=== PATIENT | female | born 1970 | race Caucasian/White ===

== ENCOUNTER 2019-07-04 02:19 | Inpatient (IN) | payer OTHER, SELFPAY ==
[~2019-07-04] VITALS: Ht 172.7 cm; Wt 80.5 kg
--- NOTE | 2019-07-04 02:41 | PHYS DOC ---
Adult General Chief Complaint Chief Complaint: ABDOMINAL PAIN HPI HPI 39-year-old female presents the emergency room complaints of abdominal pain. Patient described off and on x2 days worse tonight. She states is constant, described as a squeezing sensation. She does describe nausea, vomiting. She denies any fever or diarrhea. Patient denies any abdominal surgical procedures. She states is worse with movements, car ride. Pain initially was upper abdomen however now pretty much generalized. Last bowel movement was today. Patient is only past medical history includes hypertension and diabetes. Nothing makes her pain better. Patient denies any shortness of breath. She does state the pain moves into her chest. Denies any headache or visual changes. Review of Systems Review of Systems Constitutional: Denies fever or chills [] Respiratory: Denies cough or shortness of breath [] Cardiovascular: No additional information not addressed in HPI [] GI: + abdominal pain, nausea, vomiting, no bloody stools or diarrhea [] : Denies dysuria or hematuria [] Musculoskeletal: Denies back pain or joint pain [] Integument: psoriasis Neurologic: Denies headache, focal weakness or sensory changes [] All other systems were reviewed and found to be within normal limits, except as documented in this note. Current Medications Current Medications Current Medications Medications (Trade) Dose Ordered Sig/Yvon Start Time Stop Time Status Last Admin Dose Admin Fentanyl Citrate (Fentanyl 2ml Vial) 100 mcg STK-MED ONCE 07/04/19 03:18 07/04/19 03:18 DC Hydromorphone HCl (Dilaudid) 0.5 mg PRN Q3HRS PRN 07/04/19 05:00 Info (CONTRAST GIVEN -- Rx MONITORING) 1 each PRN DAILY PRN 07/04/19 03:30 07/06/19 03:29 Iohexol (Omnipaque 350 Mg/ml) 90 ml 1X ONCE 07/04/19 03:30 07/04/19 03:31 DC 07/04/19 03:25 90 ML Ketorolac Tromethamine (Toradol 30mg Vial) 30 mg 1X ONCE 07/04/19 03:00 07/04/19 03:01 DC 07/04/19 02:54 30 MG Morphine Sulfate (Morphine Sulfate) 2 mg PRN Q2HR PRN 07/04/19 05:00 07/05/19 04:59 Ondansetron HCl (Zofran) 4 mg PRN Q8HRS PRN 07/04/19 05:00 07/05/19 04:59 Sodium Chloride 1,000 ml @ 125 mls/hr Q8H 07/04/19 05:00 07/05/19 04:59 Allergies Allergies Allergies Coded Allergies Type Severity Reaction Last Updated Verified codeine Allergy Intermediate rash 07/04/19 Yes Physical Exam Physical Exam Constitutional: Well developed, well nourished, distress 2/2 pain, diaphoretic. [] HENT: Normocephalic, atraumatic, bilateral external ears normal, oropharynx moist, no oral exudates, nose normal. [] Eyes: PERRLA, EOMI, conjunctiva normal, no discharge. [] Cardiovascular:Heart rate regular rhythm, no murmur [] Lungs & Thorax: Bilateral breath sounds clear to auscultation [] Abdomen: Bowel sounds decreased, soft, TTP throughout, no masses, no pulsatile masses. [] Skin: Warm, dry, no erythema, no rash. [] Back: No tenderness, no CVA tenderness. [] Extremities: No tenderness, no edema. [] Neurologic: Alert and oriented X 3, no focal deficits noted. [] Psychologic: Affect normal, judgement normal, mood normal. [] Current Patient Data Vital Signs Vital Signs Date Time Temp Pulse Resp B/P (MAP) Pulse Ox O2 Delivery O2 Flow Rate FiO2 07/04/19 03:55 16 100 Room Air 07/04/19 02:25 97.6 63 106/57 (73) 97.6 Lab Values Laboratory Tests Test 07/04/19 03:40 White Blood Count 17.7 x10^3/uL (4.0-11.0) H Red Blood Count 4.55 x10^6/uL (3.50-5.40) Hemoglobin 15.2 g/dL (12.0-15.5) Hematocrit 44.3 % (36.0-47.0) Mean Corpuscular Volume 98 fL (79-100) Mean Corpuscular Hemoglobin 33 pg (25-35) Mean Corpuscular Hemoglobin Concent 34 g/dL (31-37) Red Cell Distribution Width 12.9 % (11.5-14.5) Platelet Count 294 x10^3/uL (140-400) Neutrophils (%) (Auto) 89 % (31-73) H Lymphocytes (%) (Auto) 7 % (24-48) L Monocytes (%) (Auto) 4 % (0-9) Eosinophils (%) (Auto) 0 % (0-3) Basophils (%) (Auto) 0 % (0-3) Neutrophils # (Auto) 15.7 x10^3/uL (1.8-7.7) H Lymphocytes # (Auto) 1.3 x10^3/uL (1.0-4.8) Monocytes # (Auto) 0.7 x10^3/uL (0.0-1.1) Eosinophils # (Auto) 0.0 x10^3/uL (0.0-0.7) Basophils # (Auto) 0.0 x10^3/uL (0.0-0.2) Platelet Estimate Pending Sodium Level 138 mmol/L (136-145) Potassium Level 4.3 mmol/L (3.5-5.1) Chloride Level 105 mmol/L (98-107) Carbon Dioxide Level 27 mmol/L (21-32) Anion Gap 6 (6-14) Blood Urea Nitrogen 16 mg/dL (7-20) Creatinine 1.2 mg/dL (0.6-1.0) H Estimated GFR (Cockcroft-Gault) 47.7 BUN/Creatinine Ratio 13 (6-20) Glucose Level 196 mg/dL (70-99) H Calcium Level 8.9 mg/dL (8.5-10.1) Total Bilirubin 1.4 mg/dL (0.2-1.0) H Aspartate Amino Transferase (AST) 401 U/L (15-37) H Alanine Aminotransferase (ALT) 249 U/L (14-59) H Alkaline Phosphatase 87 U/L (46-116) Total Protein 6.0 g/dL (6.4-8.2) L Albumin 3.4 g/dL (3.4-5.0) Albumin/Globulin Ratio 1.3 (1.0-1.7) Lipase 83041 U/L (73-393) H Laboratory Tests 07/04/19 03:40 Laboratory Tests 07/04/19 03:40 EKG EKG [] Radiology/Procedures Radiology/Procedures [facility] [address] [place] [address] IMAGING REPORT Signed PATIENT: SCOTT AVILA ACCOUNT: [id number] : 1970 LOCATION: ER AGE: 48 SEX: F EXAM STATUS: PRE ER ORD. PHYSICIAN: LEONARD VILLAVICENCIO MD REASON: abdominal pain straight to back, hypotension, distention PROCEDURE: CT ANGIO CHEST ABD PELVIS CT angiogram of the chest, abdomen and pelvis: Reason for examination: Abdominal pain straight to back. Hypotension and abdominal distention. Helical images were obtained through the chest, abdomen and pelvis with intravenous administration of 90 cc Omnipaque 350 using angiographic protocol. 3-D MIPS reconstruction was performed in sagittal and coronal planes. Exposure: One or more of the following individualized dose reduction techniques were utilized for this examination: 1. Automated exposure control 2. Adjustment of the mA and/or kV according to patient size 3. Use of iterative reconstruction technique. No abnormality seen at the thyroid gland. The trachea and mainstem bronchi show no intraluminal lesions. No abnormality seen at the esophagus. There is a small hiatal hernia. The thoracic aorta shows no aneurysmal dilatation or dissection. The heart size is normal with no pericardial effusion. Lung lopez show some dependent atelectasis but no consolidated infiltrates, nodules or pleural effusions are seen. No acute bony abnormalities are seen in the thorax. Bilateral breast implants appear to be present and appear to be intact. The liver contains a small cystic lesion measuring 1.5 cm in size. No abnormality is seen at the spleen, or adrenal glands. Gallbladder shows cholelithiasis. The pancreas shows enlarged pancreatic head and there is fluid and inflammatory type changes in the peripancreatic region consistent with pancreatitis. The abdominal aorta shows no aneurysmal dilatation or dissection. No abnormality seen at the inferior vena cava. The kidneys show no renal masses, renal calculi, hydronephrosis or evidence of obstructive uropathy. No abnormality seen in the stomach or duodenum. The small intestinal tract shows some mild dilatation proximally but no small bowel obstruction is seen. There are a few diverticuli in the sigmoid colon but no evidence of diverticulitis or colitis. No abnormality seen at the appendix. The bladder is not distended. The uterus shows a small 1.4 cm hyperdensity posteriorly which may represent a fibroid. There is some tubular enhancement in the left adnexa which may reflect enhancement of the fallopian tube and could reflect salpingitis. No free fluid is seen in the pelvis. No free air is seen in the abdomen or pelvis. IMPRESSION: Small hiatal hernia. No aneurysm or dissection involving the thoracic or abdominal aorta. 1.5 cm cystic lesion in the liver. Prominent pancreatic head with peripancreatic fluid and inflammatory changes around the pancreas consistent with pancreatitis. Cholelithiasis. Tubular enhancement in the left adnexa possibly reflecting salpingitis. 1.4 cm hypodensity within the posterior uterus possibly representing a fibroid. Electronically signed by: Ridge Li MD (07/04/2019 3:36 AM) [id number] DICTATED and SIGNED BY: RIDGE LI MD DATE: 07/04/19 033 [] [address] [address] IMAGING REPORT Signed PATIENT: SCOTT AVILA ACCOUNT: [id number] : 1970 LOCATION: ER AGE: 48 SEX: F EXAM STATUS: PRE ER ORD. PHYSICIAN: LEONARD VILLAVICENCIO MD REASON: abnormal CT, cholelithiasis PROCEDURE: ABDOMEN LTD Abdominal ultrasound Limited: Reason for examination: Abnormal CT with cholelithiasis. Evaluation of the pancreas is limited due to bowel gas. Pancreatic head however appears enlarged. The abdominal aorta and inferior vena cava are poorly visualized. The liver is normal in size but shows fatty infiltration without a focal lesion identified. Gallbladder shows cholelithiasis with wall thickening at 4.2 mm but no pericholecystic fluid is seen. Common bile duct is normal in caliber at 5.6 mm. Right kidney measures 11.9 x 6.2 x 4.3 cm in greatest dimension and shows normal cortical medullary differentiation with no mass or hydronephrosis seen. IMPRESSION: Prominent pancreatic head. Cholelithiasis with wall thickening. Electronically signed by: Ridge Li MD (07/04/2019 4:37 AM) [id number] DICTATED and SIGNED BY: RIDGE LI MD DATE: 07/04/19 [id number] [place] [address] IMAGING REPORT Signed PATIENT: SCOTT AVILA ACCOUNT: [id number] : 1970 LOCATION: ER AGE: 48 SEX: F EXAM STATUS: REG ER ORD. PHYSICIAN: LEONARD VILLAVICENCIO MD REASON: possible left salpingitis PROCEDURE: PELVIS W/TV Pelvic ultrasound with transvaginal: Reason for examination: Possible left salpingitis. Transabdominal and transvaginal ultrasound examination of the pelvis was performed. Transabdominally, there is poor visualization of the pelvic structures. Transvaginally, the uterus measures 8.7 x 6.0 x 5.8 cm in greatest dimension. There is a small 1.3 x 1.1 x 1.7 cm uterine mass consistent with a probable fibroid. Endometrium is not abnormally thickened at 11.5 mm. The left ovary measures 2.2 x 3.3 x 2.7 cm in greatest dimension and contains a small 5.2 mm follicle right ovary measures 2.1 x 0.9 x 1.9 cm in greatest dimension and contains several small follicles measuring up to 5.3 mm in size. There appears to be normal vascular flow bilaterally in the ovaries. There is a small amount of free fluid present in the pelvis. No fallopian tube dilatation is seen to suggest salpingitis sonographically. There are however some prominent veins present. IMPRESSION: Small uterine lesion probably representing a fibroid measuring 1.7 cm in greatest dimension. Small follicles bilaterally in the ovaries. Small amount of free fluid in the pelvis. Prominent veins in the left adnexa. No fallopian tube abnormality apparent. Electronically signed by: Ridge Li MD (07/04/2019 4:55 AM) [id number] DICTATED and SIGNED BY: RIDGE LI MD DATE: 07/04/19 0455 Course & Med Decision Making Course & Med Decision Making Pertinent Labs and Imaging studies reviewed. (See chart for details) []39-year-old female presents the emergency room complaints of abdominal pain. Patient described off and on x2 days worse tonight. She states is constant, described as a squeezing sensation. She does describe nausea, vomiting. She denies any fever or diarrhea. Patient denies any abdominal surgical procedures. She states is worse with movements, car ride. Pain initially was upper abdomen however now pretty much generalized. Last bowel movement was today. Patient is only past medical history includes hypertension and diabetes. Nothing makes her pain better. Patient denies any shortness of breath. She does state the pain moves into her chest. Denies any headache or visual changes. Dragon Disclaimer Dragon Disclaimer This electronic medical record was generated, in whole or in part, using a voice recognition dictation system. Departure Departure Impression: Primary Impression: Acute pancreatitis Additional Impression: Cholelithiasis Disposition: ADMITTED INPATIENT Admitting Physician: MAYTE Condition: IMPROVED Critical Care Time Critical care time was 35 minutes exclusive of procedures. Problem Qualifiers Primary Impression: Acute pancreatitis Pancreatitis type: unspecified pancreatitis type Acute pancreatitis complication: unspecified Qualified Codes: K85.90 - Acute pancreatitis without necrosis or infection, unspecified Additional Impression: Cholelithiasis Cholelithiasis location: gallbladder Cholecystitis presence: with ronel cystitis Cholecystitis acuity: acute Biliary obstruction: without biliary obstruction Qualified Codes: K80.00 - Calculus of gallbladder with acute cholecystitis without obstruction LEONARD VILLAVICENCIO MD Jul 04, 2019 02:40
[2019-07-04] MEDS ORDERED: ONDANSETRON PF 4 MG/2 ML VIAL. IVP ONE (03:00)
[2019-07-04] MEDS ORDERED: MORPHINE SULFATE 4 MG/ML VIAL. IV ONE (03:00)
[2019-07-04] MEDS ORDERED: KETOROLAC 30 MG/ML VIAL. IV ONE (03:00)
[2019-07-04] MEDS ORDERED: IV NORMAL SALINE 1000ML BAG 1,000 ML IV SCH (03:00)
[2019-07-04] MEDS ORDERED: fentaNYL PF VIAL 100 MCG/2 ML VIAL ONE (03:18)
[2019-07-04] MEDS ORDERED: IOHEXOL 350 MG/ML 100 ML VIAL. IV ONE (03:30)
[2019-07-04] MEDS ORDERED: CONTRAST GIVEN. MC PRN (03:30)
[2019-07-04] MEDS ORDERED: fentaNYL PF VIAL 100 MCG/2 ML VIAL IVP ONE (03:30)
--- NOTE | 2019-07-04 03:39 | RAD ---
CT angiogram of the chest, abdomen and pelvis: Reason for examination: Abdominal pain straight to back. Hypotension and abdominal distention. Helical images were obtained through the chest, abdomen and pelvis with intravenous administration of 90 cc Omnipaque 350 using angiographic protocol. 3-D MIPS reconstruction was performed in sagittal and coronal planes. Exposure: One or more of the following individualized dose reduction techniques were utilized for this examination: 1. Automated exposure control 2. Adjustment of the mA and/or kV according to patient size 3. Use of iterative reconstruction technique. No abnormality seen at the thyroid gland. The trachea and mainstem bronchi show no intraluminal lesions. No abnormality seen at the esophagus. There is a small hiatal hernia. The thoracic aorta shows no aneurysmal dilatation or dissection. The heart size is normal with no pericardial effusion. Lung lopez show some dependent atelectasis but no consolidated infiltrates, nodules or pleural effusions are seen. No acute bony abnormalities are seen in the thorax. Bilateral breast implants appear to be present and appear to be intact. The liver contains a small cystic lesion measuring 1.5 cm in size. No abnormality is seen at the spleen, or adrenal glands. Gallbladder shows cholelithiasis. The pancreas shows enlarged pancreatic head and there is fluid and inflammatory type changes in the peripancreatic region consistent with pancreatitis. The abdominal aorta shows no aneurysmal dilatation or dissection. No abnormality seen at the inferior vena cava. The kidneys show no renal masses, renal calculi, hydronephrosis or evidence of obstructive uropathy. No abnormality seen in the stomach or duodenum. The small intestinal tract shows some mild dilatation proximally but no small bowel obstruction is seen. There are a few diverticuli in the sigmoid colon but no evidence of diverticulitis or colitis. No abnormality seen at the appendix. The bladder is not distended. The uterus shows a small 1.4 cm hyperdensity posteriorly which may represent a fibroid. There is some tubular enhancement in the left adnexa which may reflect enhancement of the fallopian tube and could reflect salpingitis. No free fluid is seen in the pelvis. No free air is seen in the abdomen or pelvis. IMPRESSION: Small hiatal hernia. No aneurysm or dissection involving the thoracic or abdominal aorta. 1.5 cm cystic lesion in the liver. Prominent pancreatic head with peripancreatic fluid and inflammatory changes around the pancreas consistent with pancreatitis. Cholelithiasis. Tubular enhancement in the left adnexa possibly reflecting salpingitis. 1.4 cm hypodensity within the posterior uterus possibly representing a fibroid. Electronically signed by: Nicole Martin MD (07/04/2019 3:36 AM) [id number]
[2019-07-04 03:52] LABS: BASO % 0 % (0-3); EOS % 0 % (0-3); HEMATOCRIT 44.3 % (36.0-47.0); HEMOGLOBIN 15.2 g/dL (12.0-15.5); LYMPH # 1.3 x10^3/uL (1.0-4.8); LYMPH % 7 % (24-48); MEAN CORPUSCULAR HEMOGLOBIN 33 pg (25-35); MEAN CORPUSCULAR HGB CONC 34 g/dL (31-37); MEAN CORPUSCULAR VOLUME 98 fL (79-100); MONO # 0.7 x10^3/uL (0.0-1.1); MONO % 4 % (0-9); NEUT # 15.7 x10^3/uL (1.8-7.7); NEUT % 89 % (31-73); PLATELET COUNT 294 x10^3/uL (140-400); RED BLOOD COUNT 4.55 x10^6/uL (3.50-5.40); RED CELL DISTRIBUTION WIDTH 12.9 % (11.5-14.5); WHITE BLOOD COUNT 17.7 x10^3/uL (4.0-11.0)
[2019-07-04 04:19] LABS: CALCIUM 8.9 mg/dL (8.5-10.1); CREATININE 1.2 mg/dL (0.6-1.0); GFR 47.7; POTASSIUM 4.3 mmol/L (3.5-5.1)
[2019-07-04 04:25] LABS: ALBUMIN 3.4 g/dL (3.4-5.0); ALBUMIN/GLOBULIN RATIO 1.3 (1.0-1.7); TOTAL BILIRUBIN 1.4 mg/dL (0.2-1.0)
[2019-07-04] MEDS ORDERED: HYDROmorphone 2 MG/ML VIAL IV ONE (04:30)
--- NOTE | 2019-07-04 04:40 | RAD ---
Abdominal ultrasound Limited: Reason for examination: Abnormal CT with cholelithiasis. Evaluation of the pancreas is limited due to bowel gas. Pancreatic head however appears enlarged. The abdominal aorta and inferior vena cava are poorly visualized. The liver is normal in size but shows fatty infiltration without a focal lesion identified. Gallbladder shows cholelithiasis with wall thickening at 4.2 mm but no pericholecystic fluid is seen. Common bile duct is normal in caliber at 5.6 mm. Right kidney measures 11.9 x 6.2 x 4.3 cm in greatest dimension and shows normal cortical medullary differentiation with no mass or hydronephrosis seen. IMPRESSION: Prominent pancreatic head. Cholelithiasis with wall thickening. Electronically signed by: Nicole Martin MD (07/04/2019 4:37 AM) [id number]
--- NOTE | 2019-07-04 04:57 | RAD ---
Pelvic ultrasound with transvaginal: Reason for examination: Possible left salpingitis. Transabdominal and transvaginal ultrasound examination of the pelvis was performed. Transabdominally, there is poor visualization of the pelvic structures. Transvaginally, the uterus measures 8.7 x 6.0 x 5.8 cm in greatest dimension. There is a small 1.3 x 1.1 x 1.7 cm uterine mass consistent with a probable fibroid. Endometrium is not abnormally thickened at 11.5 mm. The left ovary measures 2.2 x 3.3 x 2.7 cm in greatest dimension and contains a small 5.2 mm follicle right ovary measures 2.1 x 0.9 x 1.9 cm in greatest dimension and contains several small follicles measuring up to 5.3 mm in size. There appears to be normal vascular flow bilaterally in the ovaries. There is a small amount of free fluid present in the pelvis. No fallopian tube dilatation is seen to suggest salpingitis sonographically. There are however some prominent veins present. IMPRESSION: Small uterine lesion probably representing a fibroid measuring 1.7 cm in greatest dimension. Small follicles bilaterally in the ovaries. Small amount of free fluid in the pelvis. Prominent veins in the left adnexa. No fallopian tube abnormality apparent. Electronically signed by: Nicole Martin MD (07/04/2019 4:55 AM) [id number]
[2019-07-04] MEDS ORDERED: ONDANSETRON PF 4 MG/2 ML VIAL. IV PRN (05:00)
[2019-07-04] MEDS: IV NORMAL SALINE 1000ML BAG 1,000 ML IV SCH ×3 (05:46→20:56)
[2019-07-04] MEDS ORDERED: PIPERACILLIN/TAZOBACTAM 4.5 GM in IV NORMAL SALINE 100ML 100 ML IV ONE (06:00)
[2019-07-04 06:07] LABS: BILIRUBIN,URINE NEGATIVE (NEG); CLARITY,URINE CLEAR; COLOR,URINE YELLOW; NITRITE,URINE NEGATIVE (NEG); PH,URINE 5.5 (<5.0-8.0); PROTEIN,URINE NEGATIVE (NEG-TRACE)
[2019-07-04 06:19] LABS: BACTERIA,URINE 0 /HPF (0-FEW); RBC,URINE 0 /HPF (0-2); SQUAMOUS EPITHELIAL CELL,UR FEW /LPF; WBC,URINE 0 /HPF (0-4)
[2019-07-04 07:00] VITALS: BP 90/53
[2019-07-04] MEDS: MORPHINE SULFATE 2 MG/ML VIAL. IV PRN ×6 (07:50→20:58)
[2019-07-04 07:54] LABS: % BANDS 3 % (0-9); % LYMPHS 6 % (24-48); % MONOS 5 % (0-10); % SEGS 86 % (35-66); PLT ESTIMATE ADEQUATE (ADEQUATE)
[2019-07-04] MEDS: HYDROmorphone 2 MG/ML VIAL IV PRN ×4 (09:11→23:02)
--- NOTE | 2019-07-04 09:25 | PDOC1 ---
History and Physical Date of Admission Date of Admission DATE: 07/04/19 TIME: 09:19 Identification/Chief Complaint Chief Complaint Abdominal pain Source Source: Patient History of Present Illness History of Present Illness Ms Diaz is a 48yo F w/ PMHx HTN, prediabetes who presents the emergency room complaints of abdominal pain. Patient described off and on 3 days. She states is constant, described as a squeezing sensation in a band-like distribution. + nausea, vomiting. She denies any fever or diarrhea. Patient denies any abdominal surgical procedures. She states is worse with movements, car ride. Pain initially was upper abdomen however now pretty much generalized. Last bowel movement was 07/03/2019. Nothing makes her pain better. Patient denies any shortness of breath. She does state the pain moves into her chest. Denies any headache or visual changes. Lipase 57444, AST 401, ALT 249, Bilirubin 1.4. CT abdomen confirms pancreatic inflammation, peripancreatic fluid and inflammatory changes around the pancreas consistent with pancreatitis. Cholelithiasis and 1.4cm uterine fibroid as well as possible left salpingitis. Admitted for further care Past Medical History Cardiovascular: HTN Past Surgical History Past Surgical History: Other (Breast augmentation) Family History Family History: High Cholestrol, Hypertension Social History Smoke: No ALCOHOL: rare Drugs: None Current Problem List Problem List Problems Medical Problems: (1) Acute pancreatitis Status: Acute (2) Cholelithiasis Status: Acute Current Medications Current Medications Current Medications Sodium Chloride 1,000 ml @ 1,000 mls/hr Q1H IV Last administered on 07/04/19at 03:00; Start 07/04/19 at 03:00; Stop 07/04/19 at 03:59; Status DC Ondansetron HCl (Zofran) 4 mg 1X ONCE IVP Last administered on 07/04/19at 03:27; Start 07/04/19 at 03:00; Stop 07/04/19 at 03:01; Status DC Morphine Sulfate (Morphine Sulfate) 4 mg 1X ONCE IV ; Start 07/04/19 at 03:00; Stop 07/04/19 at 03:01; Status Cancel Ketorolac Tromethamine (Toradol 30mg Vial) 30 mg 1X ONCE IV Last administered on 07/04/19at 02:54; Start 07/04/19 at 03:00; Stop 07/04/19 at 03:01; Status DC Fentanyl Citrate (Fentanyl 2ml Vial) 25 mcg 1X ONCE IVP Last administered on 07/04/19at 03:23; Start 07/04/19 at 03:30; Stop 07/04/19 at 03:31; Status DC Fentanyl Citrate (Fentanyl 2ml Vial) 100 mcg STK-MED ONCE .ROUTE ; Start 07/04/19 at 03:18; Stop 07/04/19 at 03:18; Status DC Iohexol (Omnipaque 350 Mg/ml) 90 ml 1X ONCE IV Last administered on 07/04/19at 03:25; Start 07/04/19 at 03:30; Stop 07/04/19 at 03:31; Status DC Info (CONTRAST GIVEN -- Rx MONITORING) 1 each PRN DAILY PRN MC SEE COMMENTS; Start 07/04/19 at 03:30; Stop 07/06/19 at 03:29 Hydromorphone HCl (Dilaudid) 0.5 mg 1X ONCE IV Last administered on 07/04/19at 03:55; Start 07/04/19 at 04:30; Stop 07/04/19 at 04:32; Status DC Ondansetron HCl (Zofran) 4 mg PRN Q8HRS PRN IV NAUSEA/VOMITING 1ST CHOICE; Start 07/04/19 at 05:00; Stop 07/05/19 at 04:59 Morphine Sulfate (Morphine Sulfate) 2 mg PRN Q2HR PRN IV SEVERE PAIN 7-10 Last administered on 07/04/19at 07:50; Start 07/04/19 at 05:00; Stop 07/05/19 at 04:59 Sodium Chloride 1,000 ml @ 125 mls/hr Q8H IV Last administered on 07/04/19at 05:46; Start 07/04/19 at 05:00; Stop 07/05/19 at 04:59 Hydromorphone HCl (Dilaudid) 0.5 mg PRN Q3HRS PRN IV SEVERE PAIN 7-10 Last administered on 07/04/19at 09:11; Start 07/04/19 at 05:00 Piperacillin Sod/ Tazobactam Sod 4.5 gm/Sodium Chloride 100 ml @ 200 mls/hr 1X ONCE IV Last administered on 07/04/19at 05:44; Start 07/04/19 at 06:00; Stop 07/04/19 at 06:29; Status DC Allergies Allergies: Coded Allergies: codeine (Verified Allergy, Intermediate, rash, 07/04/19) ROS General: YES: Appetite; No: Chills, Night Sweats, Fatigue, Malaise, Other PSYCHOLOGICAL ROS: No: Anxiety, Behavioral Disorder, Concentration difficultie, Decreased libido, Depression, Disorientation, Hallucinations, Hostility, Irritablity, Memory difficulties, Mood Swings, Obsessive thoughts, Physical abuse, Sexual abuse, Sleep disturbances, Suicidal ideation, Other Eyes: No Blurry vision, No Decreased vision, No Double vision, No Dry eyes, No Excessive tearing, No Eye Pain, No Itchy Eyes, No Loss of vision, No Photophobia, No Scotomata, No Uses contacts, No Uses glasses, No Other HEENT: No: Heacaches, Visual Changes, Hearing change, Nasal congestion, Nasal discharge, Oral lesions, Sinus pain, Sore Throat, Epistaxis, Sneezing, Snoring, Tinnitus, Vertigo, Vocal changes, Other ALLERGY AND IMMUNOLOGY: No: Hives, Insect Bite Sensitivity, Itchy/Watery Eyes, Nasal Congestion, Post Nasal Drip, Seasonal Allergies, Other Hematological and Lymphatic: No: Bleeding Problems, Blood Clots, Blood Transfusions, Brusing, Night Sweats, Pallor, Swollen Lymph Nodes, Other ENDOCRINE: No: Breast Changes, Galactorrhea, Hair Pattern Changes, Hot Flashes, Malaise/lethargy, Mood Swings, Palpitations, Polydipsia/polyuria, Skin Changes, Temperature Intolerance, Unexpected Weight Changes, Other Breast: No New/Changing Breast Lumps, No Nipple changes, No Nipple discharge, No Other Respiratory: No: Cough, Hemoptysis, Orthopnea, Pleuritic Pain, Shortness of breath, SOB with excertion, Sputum Changes, Stridor, Tachypnea, Wheezing, Other Cardiovascular: No Chest Pain, No Palpitations, No Orthopnea, No Paroxysmal Noc. Dyspnea, No Edema, No Lt Headedness, No Other Gastrointestinal: Yes Nausea, Yes Vomiting, Yes Abdominal Pain; No Diarrhea, No Constipation, No Melena, No Hematochezia, No Other Genitourinary: No Dysuria, No Frequency, No Incontinence, No Hematuria, No Retention, No Discharge, No Urgency, No Pain, No Flank Pain, No Other, No , No , No , No , No , No , No Musculoskeletal: No Gait Disturbance, No Joint Pain, No Joint Stiffness, No Joint Swelling, No Muscle Pain, No Muscular Weakness, No Pain In:, No Swelling In:, No Other Neurological: No Behavorial Changes, No Bowel/Bladder ControlChng, No Confusion, No Dizziness, No Gait Disturbance, No Headaches, No Impaired Coord/balance, No Memory Loss, No Numbness/Tingling, No Seizures, No Speech Problems, No Tremors, No Visual Changes, No Weakness, No Other Skin: No Dry Skin, No Eczema, No Hair Changes, No Lumps, No Mole Changes, No Mottling, No Nail Changes, No Pruritus, No Rash, No Skin Lesion Changes, No Other, No Acne Physical Exam General: Alert, Oriented X3, Cooperative, moderate distress HEENT: Atraumatic, PERRLA, EOMI, Mucous membr. moist/pink Lungs: Clear to auscultation, Normal air movement Heart: S1S2, RRR, no thrills, no rubs, no gallops, no murmurs Abdomen: Normal bowel sounds, Soft, No hepatosplenomegaly, No masses, Other (Diffuse tenderness) Rectal Exam: not examined Extremities: No clubbing, No cyanosis, No edema, Normal pulses, No tenderness/swelling Skin: No rashes, No breakdown, No significant lesion Neuro: Normal gait, Normal speech, Strength at 5/5 X4 ext, Normal tone, Sensation intact, Cranial nerves 3-12 NL, Reflexes 2+ Psych/Mental Status: Mental status NL, Mood NL Vitals Vitals Vital Signs Date Time Temp Pulse Resp B/P (MAP) Pulse Ox O2 Delivery O2 Flow Rate FiO2 07/04/19 09:11 99 07/04/19 07:50 Room Air 07/04/19 07:00 97.4 61 16 90/53 (65) 97.4 Labs Labs Laboratory Tests Test 07/04/19 03:40 07/04/19 05:31 White Blood Count 17.7 x10^3/uL (4.0-11.0) Red Blood Count 4.55 x10^6/uL (3.50-5.40) Hemoglobin 15.2 g/dL (12.0-15.5) Hematocrit 44.3 % (36.0-47.0) Mean Corpuscular Volume 98 fL (79-100) Mean Corpuscular Hemoglobin 33 pg (25-35) Mean Corpuscular Hemoglobin Concent 34 g/dL (31-37) Red Cell Distribution Width 12.9 % (11.5-14.5) Platelet Count 294 x10^3/uL (140-400) Neutrophils (%) (Auto) 89 % (31-73) Lymphocytes (%) (Auto) 7 % (24-48) Monocytes (%) (Auto) 4 % (0-9) Eosinophils (%) (Auto) 0 % (0-3) Basophils (%) (Auto) 0 % (0-3) Neutrophils # (Auto) 15.7 x10^3/uL (1.8-7.7) Lymphocytes # (Auto) 1.3 x10^3/uL (1.0-4.8) Monocytes # (Auto) 0.7 x10^3/uL (0.0-1.1) Eosinophils # (Auto) 0.0 x10^3/uL (0.0-0.7) Basophils # (Auto) 0.0 x10^3/uL (0.0-0.2) Segmented Neutrophils % 86 % (35-66) Band Neutrophils % 3 % (0-9) Lymphocytes % 6 % (24-48) Monocytes % 5 % (0-10) Platelet Estimate Adequate (ADEQUATE) Sodium Level 138 mmol/L (136-145) Potassium Level 4.3 mmol/L (3.5-5.1) Chloride Level 105 mmol/L (98-107) Carbon Dioxide Level 27 mmol/L (21-32) Anion Gap 6 (6-14) Blood Urea Nitrogen 16 mg/dL (7-20) Creatinine 1.2 mg/dL (0.6-1.0) Estimated GFR (Cockcroft-Gault) 47.7 BUN/Creatinine Ratio 13 (6-20) Glucose Level 196 mg/dL (70-99) Calcium Level 8.9 mg/dL (8.5-10.1) Total Bilirubin 1.4 mg/dL (0.2-1.0) Aspartate Amino Transf (AST/SGOT) 401 U/L (15-37) Alanine Aminotransferase (ALT/SGPT) 249 U/L (14-59) Alkaline Phosphatase 87 U/L (46-116) Total Protein 6.0 g/dL (6.4-8.2) Albumin 3.4 g/dL (3.4-5.0) Albumin/Globulin Ratio 1.3 (1.0-1.7) Lipase 18202 U/L (73-393) Urine Collection Type Unknown Urine Color Yellow Urine Clarity Clear Urine pH 5.5 (<5.0-8.0) Urine Specific Mcgrath >=1.030 (1.000-1.030) Urine Protein Negative mg/dL (NEG-TRACE) Urine Glucose (UA) Negative mg/dL (NEG) Urine Ketones (Stick) Negative mg/dL (NEG) Urine Blood Negative (NEG) Urine Nitrite Negative (NEG) Urine Bilirubin Negative (NEG) Urine Urobilinogen Dipstick 1.0 mg/dL (0.2 mg/dL) Urine Leukocyte Esterase Negative (NEG) Urine RBC 0 /HPF (0-2) Urine WBC 0 /HPF (0-4) Urine Squamous Epithelial Cells Few /LPF Urine Bacteria 0 /HPF (0-FEW) Laboratory Tests Test 07/04/19 03:40 07/04/19 05:31 White Blood Count 17.7 x10^3/uL (4.0-11.0) Red Blood Count 4.55 x10^6/uL (3.50-5.40) Hemoglobin 15.2 g/dL (12.0-15.5) Hematocrit 44.3 % (36.0-47.0) Mean Corpuscular Volume 98 fL (79-100) Mean Corpuscular Hemoglobin 33 pg (25-35) Mean Corpuscular Hemoglobin Concent 34 g/dL (31-37) Red Cell Distribution Width 12.9 % (11.5-14.5) Platelet Count 294 x10^3/uL (140-400) Neutrophils (%) (Auto) 89 % (31-73) Lymphocytes (%) (Auto) 7 % (24-48) Monocytes (%) (Auto) 4 % (0-9) Eosinophils (%) (Auto) 0 % (0-3) Basophils (%) (Auto) 0 % (0-3) Neutrophils # (Auto) 15.7 x10^3/uL (1.8-7.7) Lymphocytes # (Auto) 1.3 x10^3/uL (1.0-4.8) Monocytes # (Auto) 0.7 x10^3/uL (0.0-1.1) Eosinophils # (Auto) 0.0 x10^3/uL (0.0-0.7) Basophils # (Auto) 0.0 x10^3/uL (0.0-0.2) Segmented Neutrophils % 86 % (35-66) Band Neutrophils % 3 % (0-9) Lymphocytes % 6 % (24-48) Monocytes % 5 % (0-10) Platelet Estimate Adequate (ADEQUATE) Sodium Level 138 mmol/L (136-145) Potassium Level 4.3 mmol/L (3.5-5.1) Chloride Level 105 mmol/L (98-107) Carbon Dioxide Level 27 mmol/L (21-32) Anion Gap 6 (6-14) Blood Urea Nitrogen 16 mg/dL (7-20) Creatinine 1.2 mg/dL (0.6-1.0) Estimated GFR (Cockcroft-Gault) 47.7 BUN/Creatinine Ratio 13 (6-20) Glucose Level 196 mg/dL (70-99) Calcium Level 8.9 mg/dL (8.5-10.1) Total Bilirubin 1.4 mg/dL (0.2-1.0) Aspartate Amino Transf (AST/SGOT) 401 U/L (15-37) Alanine Aminotransferase (ALT/SGPT) 249 U/L (14-59) Alkaline Phosphatase 87 U/L (46-116) Total Protein 6.0 g/dL (6.4-8.2) Albumin 3.4 g/dL (3.4-5.0) Albumin/Globulin Ratio 1.3 (1.0-1.7) Lipase 24391 U/L (73-393) Urine Collection Type Unknown Urine Color Yellow Urine Clarity Clear Urine pH 5.5 (<5.0-8.0) Urine Specific Mcgrath >=1.030 (1.000-1.030) Urine Protein Negative mg/dL (NEG-TRACE) Urine Glucose (UA) Negative mg/dL (NEG) Urine Ketones (Stick) Negative mg/dL (NEG) Urine Blood Negative (NEG) Urine Nitrite Negative (NEG) Urine Bilirubin Negative (NEG) Urine Urobilinogen Dipstick 1.0 mg/dL (0.2 mg/dL) Urine Leukocyte Esterase Negative (NEG) Urine RBC 0 /HPF (0-2) Urine WBC 0 /HPF (0-4) Urine Squamous Epithelial Cells Few /LPF Urine Bacteria 0 /HPF (0-FEW) Images Images CT neck/chest/abdomen/pelvis - No abnormality seen at the thyroid gland. The trachea and mainstem bronchi show no intraluminal lesions. No abnormality seen at the esophagus. There is a small hiatal hernia. The thoracic aorta shows no aneurysmal dilatation or dissection. The heart size is normal with no pericardial effusion. Lung lopez show some dependent atelectasis but no consolidated infiltrates, nodules or pleural effusions are seen. No acute bony abnormalities are seen in the thorax. Bilateral breast implants appear to be present and appear to be intact. The liver contains a small cystic lesion measuring 1.5 cm in size. No abnormality is seen at the spleen, or adrenal glands. Gallbladder shows cholelithiasis. The pancreas shows enlarged pancreatic head and there is fluid and inflammatory type changes in the peripancreatic region consistent with pancreatitis. The abdominal aorta shows no aneurysmal dilatation or dissection. No abnormality seen at the inferior vena cava. The kidneys show no renal masses, renal calculi, hydronephrosis or evidence of obstructive uropathy. No abnormality seen in the stomach or duodenum. The small intestinal tract shows some mild dilatation proximally but no small bowel obstruction is seen. There are a few diverticuli in the sigmoid colon but no evidence of diverticulitis or colitis. No abnormality seen at the appendix. The bladder is not distended. The uterus shows a small 1.4 cm hyperdensity posteriorly which may represent a fibroid. There is some tubular enhancement in the left adnexa which may reflect enhancement of the fallopian tube and could reflect salpingitis. No free fluid is seen in the pelvis. No free air is seen in the abdomen or pelvis. IMPRESSION: Small hiatal hernia. No aneurysm or dissection involving the thoracic or abdominal aorta. 1.5 cm cystic lesion in the liver. Prominent pancreatic head with peripancreatic fluid and inflammatory changes around the pancreas consistent with pancreatitis. Cholelithiasis. Tubular enhancement in the left adnexa possibly reflecting salpingitis. 1.4 cm hypodensity within the posterior uterus possibly representing a fibroid. RUQ US Evaluation of the pancreas is limited due to bowel gas. Pancreatic head however appears enlarged. The abdominal aorta and inferior vena cava are poorly visualized. The liver is normal in size but shows fatty infiltration without a focal lesion identified. Gallbladder shows cholelithiasis with wall thickening at 4.2 mm but no pericholecystic fluid is seen. Common bile duct is normal in caliber at 5.6 mm. Right kidney measures 11.9 x 6.2 x 4.3 cm in greatest dimension and shows normal cortical medullary differentiation with no mass or hydronephrosis seen. IMPRESSION: Prominent pancreatic head. Cholelithiasis with wall thickening. Transabdominal and transvaginal ultrasound: Transabdominally, there is poor visualization of the pelvic structures. Transvaginally, the uterus measures 8.7 x 6.0 x 5.8 cm in greatest dimension. There is a small 1.3 x 1.1 x 1.7 cm uterine mass consistent with a probable fibroid. Endometrium is not abnormally thickened at 11.5 mm. The left ovary measures 2.2 x 3.3 x 2.7 cm in greatest dimension and contains a small 5.2 mm follicle right ovary measures 2.1 x 0.9 x 1.9 cm in greatest dimension and contains several small follicles measuring up to 5.3 mm in size. There appears to be normal vascular flow bilaterally in the ovaries. There is a small amount of free fluid present in the pelvis. No fallopian tube dilatation is seen to suggest salpingitis sonographically. There are however some prominent veins present. IMPRESSION: Small uterine lesion probably representing a fibroid measuring 1.7 cm in greatest dimension. Small follicles bilaterally in the ovaries. Small amount of free fluid in the pelvis. Prominent veins in the left adnexa. No fallopian tube abnormality apparent. VTE Prophylaxis Ordered VTE Prophylaxis Devices: No VTE Pharmacological Prophylaxi: Yes Assessment/Plan Assessment/Plan A/P: Acute pancreatitis - without necrosis or infection, likely gallstone pancreatitis. GI and general surgery consulted. Will keep NPO, pain control Calculus of gallbladder with acute cholecystitis without obstruction - with secondary pancreatitis. Lap ronel is indicated Prediabetes - will keep on sliding scale HTN - cont prn hydralazine Leukocytosis - she meets SIRS criteria with acute pancreatitis as end organ dysfunction, no sign of infection FEN - NPO PPX - lovenox FULL CODE Dispo - inpatient for 2 midnights DAVIN LANDEROS MD Jul 04, 2019 09:25
[2019-07-04] MEDS: INSULIN LISPRO 300 UNITS/3 ML VIAL. SQ SCH ×3 (09:30→18:00)
[2019-07-04] MEDS ORDERED: DEXTROSE 50% 25 GM / 50ML DISP.SYRIN. IV PRN (09:30)
--- NOTE | 2019-07-04 09:46 | PDOC2 ---
GI CONSULT Reason For Consult: pancreatitis HPI: HPI: 48 y/o female ill for a couple days w/ upper abdominal pain ("band" radiating to lower back) and vomiting. Feels tight. Has occurred in the past but much less severe. Feels weak and short of breath. H/o occasional acid reflux - takes Tums PRN. Rare dysphagia w/ solid foods, sometimes needs to cough up. No hematemesis, hematochezia, melena, diarrhea, constipation, or weight loss. No GB, liver, pancreas, or PUD history. No previous EGD or colonoscopy. Occasional ibuprofen. PMH: PMH: HTN, borderline HLD and DM breast augmentation, nasal surgery FH: Family History: No pertinent hx (denies GI cancers) Social History: Smoke: No ALCOHOL: occassional Drugs: None ROS: GEN: Denies fevers, chills, sweats HEENT: Denies blurred vision, sore throat CV: Denies chest pain RESP: Denies shortness of air, cough GI: Per HPI : Denies hematuria, dysuria ENDO: Denies weight changes NEURO: Denies confusion, dizziness MSK: Denies weakness, joint pain/swelling SKIN: Denies jaundice, pruritus Vitals: Vitals: Vital Signs Date Time Temp Pulse Resp B/P (MAP) Pulse Ox O2 Delivery O2 Flow Rate FiO2 07/04/19 09:11 99 07/04/19 07:50 Room Air 07/04/19 07:00 97.4 61 16 90/53 (65) 97.4 Labs: Labs: Laboratory Tests Test 07/04/19 03:40 07/04/19 05:31 White Blood Count 17.7 x10^3/uL (4.0-11.0) Red Blood Count 4.55 x10^6/uL (3.50-5.40) Hemoglobin 15.2 g/dL (12.0-15.5) Hematocrit 44.3 % (36.0-47.0) Mean Corpuscular Volume 98 fL (79-100) Mean Corpuscular Hemoglobin 33 pg (25-35) Mean Corpuscular Hemoglobin Concent 34 g/dL (31-37) Red Cell Distribution Width 12.9 % (11.5-14.5) Platelet Count 294 x10^3/uL (140-400) Neutrophils (%) (Auto) 89 % (31-73) Lymphocytes (%) (Auto) 7 % (24-48) Monocytes (%) (Auto) 4 % (0-9) Eosinophils (%) (Auto) 0 % (0-3) Basophils (%) (Auto) 0 % (0-3) Neutrophils # (Auto) 15.7 x10^3/uL (1.8-7.7) Lymphocytes # (Auto) 1.3 x10^3/uL (1.0-4.8) Monocytes # (Auto) 0.7 x10^3/uL (0.0-1.1) Eosinophils # (Auto) 0.0 x10^3/uL (0.0-0.7) Basophils # (Auto) 0.0 x10^3/uL (0.0-0.2) Segmented Neutrophils % 86 % (35-66) Band Neutrophils % 3 % (0-9) Lymphocytes % 6 % (24-48) Monocytes % 5 % (0-10) Platelet Estimate Adequate (ADEQUATE) Sodium Level 138 mmol/L (136-145) Potassium Level 4.3 mmol/L (3.5-5.1) Chloride Level 105 mmol/L (98-107) Carbon Dioxide Level 27 mmol/L (21-32) Anion Gap 6 (6-14) Blood Urea Nitrogen 16 mg/dL (7-20) Creatinine 1.2 mg/dL (0.6-1.0) Estimated GFR (Cockcroft-Gault) 47.7 BUN/Creatinine Ratio 13 (6-20) Glucose Level 196 mg/dL (70-99) Calcium Level 8.9 mg/dL (8.5-10.1) Total Bilirubin 1.4 mg/dL (0.2-1.0) Aspartate Amino Transf (AST/SGOT) 401 U/L (15-37) Alanine Aminotransferase (ALT/SGPT) 249 U/L (14-59) Alkaline Phosphatase 87 U/L (46-116) Total Protein 6.0 g/dL (6.4-8.2) Albumin 3.4 g/dL (3.4-5.0) Albumin/Globulin Ratio 1.3 (1.0-1.7) Lipase 72901 U/L (73-393) Urine Collection Type Unknown Urine Color Yellow Urine Clarity Clear Urine pH 5.5 (<5.0-8.0) Urine Specific [place] >=1.030 (1.000-1.030) Urine Protein Negative mg/dL (NEG-TRACE) Urine Glucose (UA) Negative mg/dL (NEG) Urine Ketones (Stick) Negative mg/dL (NEG) Urine Blood Negative (NEG) Urine Nitrite Negative (NEG) Urine Bilirubin Negative (NEG) Urine Urobilinogen Dipstick 1.0 mg/dL (0.2 mg/dL) Urine Leukocyte Esterase Negative (NEG) Urine RBC 0 /HPF (0-2) Urine WBC 0 /HPF (0-4) Urine Squamous Epithelial Cells Few /LPF Urine Bacteria 0 /HPF (0-FEW) Allergies: Coded Allergies: codeine (Verified Allergy, Intermediate, rash, 07/04/19) Medications: Current Medications Medications (Trade) Dose Ordered Sig/Yvon Route PRN Reason Start Time Stop Time Status Last Admin Dose Admin Sodium Chloride 1,000 ml @ 1,000 mls/hr Q1H IV 07/04/19 03:00 07/04/19 03:59 DC 07/04/19 03:00 Ondansetron HCl (Zofran) 4 mg 1X ONCE IVP 07/04/19 03:00 07/04/19 03:01 DC 07/04/19 03:27 Ketorolac Tromethamine (Toradol 30mg Vial) 30 mg 1X ONCE IV 07/04/19 03:00 07/04/19 03:01 DC 07/04/19 02:54 Fentanyl Citrate (Fentanyl 2ml Vial) 25 mcg 1X ONCE IVP 07/04/19 03:30 07/04/19 03:31 DC 07/04/19 03:23 Iohexol (Omnipaque 350 Mg/ml) 90 ml 1X ONCE IV 07/04/19 03:30 07/04/19 03:31 DC 07/04/19 03:25 Hydromorphone HCl (Dilaudid) 0.5 mg 1X ONCE IV 07/04/19 04:30 07/04/19 04:32 DC 07/04/19 03:55 Morphine Sulfate (Morphine Sulfate) 2 mg PRN Q2HR PRN IV SEVERE PAIN 7-10 07/04/19 05:00 07/04/19 07:50 Sodium Chloride 1,000 ml @ 125 mls/hr Q8H IV 07/04/19 05:00 07/05/19 04:59 07/04/19 05:46 Hydromorphone HCl (Dilaudid) 0.5 mg PRN Q3HRS PRN IV SEVERE PAIN 7-10 07/04/19 05:00 07/04/19 09:11 Piperacillin Sod/ Tazobactam Sod 4.5 gm/Sodium Chloride 100 ml @ 200 mls/hr 1X ONCE IV 07/04/19 06:00 07/04/19 06:29 DC 07/04/19 05:44 Imaging: Imaging: C/A/P CTA No abnormality seen at the thyroid gland. The trachea and mainstem bronchi show no intraluminal lesions. No abnormality seen at the esophagus. There is a small hiatal hernia. The thoracic aorta shows no aneurysmal dilatation or dissection. The heart size is normal with no pericardial effusion. Lung lopez show some dependent atelectasis but no consolidated infiltrates, nodules or pleural effusions are seen. No acute bony abnormalities are seen in the thorax. Bilateral breast implants appear to be present and appear to be intact. The liver contains a small cystic lesion measuring 1.5 cm in size. No abnormality is seen at the spleen, or adrenal glands. Gallbladder shows cholelithiasis. The pancreas shows enlarged pancreatic head and there is fluid and inflammatory type changes in the peripancreatic region consistent with pancreatitis. The abdominal aorta shows no aneurysmal dilatation or dissection. No abnormality seen at the inferior vena cava. The kidneys show no renal masses, renal calculi, hydronephrosis or evidence of obstructive uropathy. No abnormality seen in the stomach or duodenum. The small intestinal tract shows some mild dilatation proximallybut no small bowel obstruction is seen. There are a few diverticuli in the sigmoid colon but no evidence of diverticulitis or colitis. No abnormality seen at the appendix. The bladder is not distended. The uterus shows a small 1.4 cm hyperdensity posteriorly which may represent a fibroid. There is some tubular enhancement in the left adnexa which may reflect enhancement of the fallopian tube and could reflect salpingitis. No free fluid is seen in the pelvis. No free air is seen in the abdomen or pelvis. IMPRESSION: Small hiatal hernia. No aneurysm or dissection involving the thoracic or abdominal aorta. 1.5 cm cystic lesion in the liver. Prominent pancreatic head with peripancreatic fluid and inflammatory changes around the pancreas consistent with pancreatitis. Cholelithiasis. Tubular enhancement in the left adnexa possibly reflecting salpingitis. 1.4 cm hypodensity within the posterior uterus possibly representing a fibroid. RUQ US Evaluation of the pancreas is limited due to bowel gas. Pancreatic head however appears enlarged. The abdominal aorta and inferior vena cava are poorly visualized. The liver is normal in size but shows fatty infiltration without a focal lesion identified. Gallbladder shows cholelithiasis with wall thickening at 4.2 mm but no pericholecystic fluid is seen. Common bile duct is normal in caliber at 5.6 mm. Right kidney measures 11.9 x 6.2 x 4.3 cm in greatest dimension and shows normal cortical medullary differentiation with n o mass or hydronephrosis seen. IMPRESSION: Prominent pancreatic head. Cholelithiasis with wall thickening. Pelv US IMPRESSION: Small uterine lesion probably representing a fibroid measuring 1.7 cm in greatest dimension. Small follicles bilaterally in the ovaries. Small amount of free fluid in the pelvis. Prominent veins in the left adnexa. No fallopian tube abnormality apparent. PE: GEN: uncomfortable, family present HEENT: Atraumatic, PERRL LUNGS: CTAB HEART: RRR ABD: quiet, some distention, epigastric to RUQ pain, some tenderness LLQ EXTREMITY: No edema SKIN: No rashes, no jaundice NEURO/PSYCH: A & O 3 A/P: A/P: Gallstone pancreatitis, GB wall thickening Leukocytosis, elevated LFTs - CBD WNL CRC screen - none Diverticulosis Fatty liver, cystic liver lesion Uterine fibroid -- Continue support - NPO (ice chips ok w/ GI), IVF, anti-emetics. Pain control per primary. Await surgery consult re: timing of cholecystectomy, monitor labs. 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 Outpt screening colonoscopy +/- EGD. CYNDEE FALCON Jul 04, 2019 09:46
[2019-07-04 11:00] VITALS: BP 160/68
[2019-07-04] MEDS: PANTOPRAZOLE IV PUSH 40 MG VIAL. IVP SCH (12:03)
--- NOTE | 2019-07-04 12:05 | PDOC2 ---
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 Danielle [employer] DEVELOP[employer] ENGINEER 07/04/19 1205: CONSULT Date of Consult Date of Consult DATE: 07/04/19 TIME: 11:59 Reason for Consult Reason for Consult: gallstone pancreatitis Referring Physician Referring Physician: ER Identification/Chief Complaint Chief Complaint abdominal pain Source Source: Chart review, Patient History of Present Illness Reason for Visit: abdominal pain, nausea, emesis last couple of days, then yesterday became significantly worse. Pain is diffuse, radiates to back.. No constipation or diarrhea. Clammy at home No hx of pancreatitis Past Medical History Cardiovascular: HTN, Hyperlipidemia Endocrine: Diabetes Past Surgical History Past Surgical History: No pertinent history Family History Family History: Other (noncontributory to current illness) Social History No ALCOHOL: occassional Drugs: None Current Problem List Problem List Problems Medical Problems: (1) Acute pancreatitis Status: Acute (2) Cholelithiasis Status: Acute Current Medications Current Medications Current Medications Sodium Chloride 1,000 ml @ 1,000 mls/hr Q1H IV Last administered on 07/04/19at 03:00; Start 07/04/19 at 03:00; Stop 07/04/19 at 03:59; Status DC Ondansetron HCl (Zofran) 4 mg 1X ONCE IVP Last administered on 07/04/19at 03:27; Start 07/04/19 at 03:00; Stop 07/04/19 at 03:01; Status DC Morphine Sulfate (Morphine Sulfate) 4 mg 1X ONCE IV ; Start 07/04/19 at 03:00; Stop 07/04/19 at 03:01; Status Cancel Ketorolac Tromethamine (Toradol 30mg Vial) 30 mg 1X ONCE IV Last administered on 07/04/19at 02:54; Start 07/04/19 at 03:00; Stop 07/04/19 at 03:01; Status DC Fentanyl Citrate (Fentanyl 2ml Vial) 25 mcg 1X ONCE IVP Last administered on 07/04/19at 03:23; Start 07/04/19 at 03:30; Stop 07/04/19 at 03:31; Status DC Fentanyl Citrate (Fentanyl 2ml Vial) 100 mcg STK-MED ONCE .ROUTE ; Start 07/04/19 at 03:18; Stop 07/04/19 at 03:18; Status DC Iohexol (Omnipaque 350 Mg/ml) 90 ml 1X ONCE IV Last administered on 07/04/19at 03:25; Start 07/04/19 at 03:30; Stop 07/04/19 at 03:31; Status DC Info (CONTRAST GIVEN -- Rx MONITORING) 1 each PRN DAILY PRN MC SEE COMMENTS; Start 07/04/19 at 03:30; Stop 07/06/19 at 03:29 Hydromorphone HCl (Dilaudid) 0.5 mg 1X ONCE IV Last administered on 07/04/19at 03:55; Start 07/04/19 at 04:30; Stop 07/04/19 at 04:32; Status DC Ondansetron HCl (Zofran) 4 mg PRN Q8HRS PRN IV NAUSEA/VOMITING 1ST CHOICE; Start 07/04/19 at 05:00; Stop 07/04/19 at 09:27; Status DC Morphine Sulfate (Morphine Sulfate) 2 mg PRN Q2HR PRN IV SEVERE PAIN 7-10 Last administered on 07/04/19at 10:10; Start 07/04/19 at 05:00 Sodium Chloride 1,000 ml @ 125 mls/hr Q8H IV Last administered on 07/04/19at 05:46; Start 07/04/19 at 05:00; Stop 07/05/19 at 04:59 Hydromorphone HCl (Dilaudid) 0.5 mg PRN Q3HRS PRN IV SEVERE PAIN 7-10 Last administered on 07/04/19at 09:11; Start 07/04/19 at 05:00 Piperacillin Sod/ Tazobactam Sod 4.5 gm/Sodium Chloride 100 ml @ 200 mls/hr 1X ONCE IV Last administered on 07/04/19at 05:44; Start 07/04/19 at 06:00; Stop 07/04/19 at 06:29; Status DC Ondansetron HCl (Zofran) 4 mg PRN Q4HRS PRN IV NAUSEA/VOMITING 1ST CHOICE; Start 07/04/19 at 09:30 Insulin Human Lispro (HumaLOG) 0-9 UNITS Q6HRS SQ ; Start 07/04/19 at 09:30 Dextrose (Dextrose 50%-Water Syringe) 12.5 gm PRN Q15MIN PRN IV SEE COMMENTS; Start 07/04/19 at 09:30 Pantoprazole Sodium (PROTONIX VIAL for IV PUSH) 40 mg DAILYAC IVP ; Start 07/04/19 at 11:30 Allergies Allergies: Coded Allergies: codeine (Verified Allergy, Intermediate, rash, 07/04/19) ROS General: YES: Fatigue; No: Chills PSYCHOLOGICAL ROS: No: Anxiety, Depression Eyes: No Blurry vision, No Loss of vision HEENT: No: Heacaches, Sore Throat Hematological and Lymphatic: No: Bleeding Problems, Blood Clots Respiratory: YES: Shortness of breath; No: Cough Cardiovascular: No Chest Pain, No Palpitations Gastrointestinal: Yes Other (see hpi) Genitourinary: YES Dysuria, YES Hematuria Musculoskeletal: No Joint Pain, No Muscle Pain Neurological: No Impaired Coord/balance, No Numbness/Tingling Skin: No Pruritus, No Rash Physical Exam General: Alert, Oriented X3, Cooperative, No acute distress HEENT: PERRLA, Mucous membr. moist/pink Lungs: Clear to auscultation, Normal air movement Heart: Regular rate, Normal S1, Normal S2, No murmurs Abdomen: Soft, Other (moderate epigastric TTP, mild across lower abdomen ) Extremities: No clubbing, No cyanosis Skin: No rashes Neuro: Normal gait, Normal speech Psych/Mental Status: Mental status NL, Mood NL MUSCULOSKELETAL: No deformity, No swelling Vitals VITALS Vital Signs Date Time Temp Pulse Resp B/P (MAP) Pulse Ox O2 Delivery O2 Flow Rate FiO2 07/04/19 11:00 97.8 77 16 160/68 (98) 96 Nasal Cannula 97.8 Labs Labs Laboratory Tests Test 07/04/19 03:40 07/04/19 05:31 White Blood Count 17.7 x10^3/uL (4.0-11.0) Red Blood Count 4.55 x10^6/uL (3.50-5.40) Hemoglobin 15.2 g/dL (12.0-15.5) Hematocrit 44.3 % (36.0-47.0) Mean Corpuscular Volume 98 fL (79-100) Mean Corpuscular Hemoglobin 33 pg (25-35) Mean Corpuscular Hemoglobin Concent 34 g/dL (31-37) Red Cell Distribution Width 12.9 % (11.5-14.5) Platelet Count 294 x10^3/uL (140-400) Neutrophils (%) (Auto) 89 % (31-73) Lymphocytes (%) (Auto) 7 % (24-48) Monocytes (%) (Auto) 4 % (0-9) Eosinophils (%) (Auto) 0 % (0-3) Basophils (%) (Auto) 0 % (0-3) Neutrophils # (Auto) 15.7 x10^3/uL (1.8-7.7) Lymphocytes # (Auto) 1.3 x10^3/uL (1.0-4.8) Monocytes # (Auto) 0.7 x10^3/uL (0.0-1.1) Eosinophils # (Auto) 0.0 x10^3/uL (0.0-0.7) Basophils # (Auto) 0.0 x10^3/uL (0.0-0.2) Segmented Neutrophils % 86 % (35-66) Band Neutrophils % 3 % (0-9) Lymphocytes % 6 % (24-48) Monocytes % 5 % (0-10) Platelet Estimate Adequate (ADEQUATE) Sodium Level 138 mmol/L (136-145) Potassium Level 4.3 mmol/L (3.5-5.1) Chloride Level 105 mmol/L (98-107) Carbon Dioxide Level 27 mmol/L (21-32) Anion Gap 6 (6-14) Blood Urea Nitrogen 16 mg/dL (7-20) Creatinine 1.2 mg/dL (0.6-1.0) Estimated GFR (Cockcroft-Gault) 47.7 BUN/Creatinine Ratio 13 (6-20) Glucose Level 196 mg/dL (70-99) Calcium Level 8.9 mg/dL (8.5-10.1) Total Bilirubin 1.4 mg/dL (0.2-1.0) Aspartate Amino Transf (AST/SGOT) 401 U/L (15-37) Alanine Aminotransferase (ALT/SGPT) 249 U/L (14-59) Alkaline Phosphatase 87 U/L (46-116) Total Protein 6.0 g/dL (6.4-8.2) Albumin 3.4 g/dL (3.4-5.0) Albumin/Globulin Ratio 1.3 (1.0-1.7) Lipase 72231 U/L (73-393) Urine Collection Type Unknown Urine Color Yellow Urine Clarity Clear Urine pH 5.5 (<5.0-8.0) Urine Specific [place] >=1.030 (1.000-1.030) Urine Protein Negative mg/dL (NEG-TRACE) Urine Glucose (UA) Negative mg/dL (NEG) Urine Ketones (Stick) Negative mg/dL (NEG) Urine Blood Negative (NEG) Urine Nitrite Negative (NEG) Urine Bilirubin Negative (NEG) Urine Urobilinogen Dipstick 1.0 mg/dL (0.2 mg/dL) Urine Leukocyte Esterase Negative (NEG) Urine RBC 0 /HPF (0-2) Urine WBC 0 /HPF (0-4) Urine Squamous Epithelial Cells Few /LPF Urine Bacteria 0 /HPF (0-FEW) Laboratory Tests Test 07/04/19 03:40 07/04/19 05:31 White Blood Count 17.7 x10^3/uL (4.0-11.0) Red Blood Count 4.55 x10^6/uL (3.50-5.40) Hemoglobin 15.2 g/dL (12.0-15.5) Hematocrit 44.3 % (36.0-47.0) Mean Corpuscular Volume 98 fL (79-100) Mean Corpuscular Hemoglobin 33 pg (25-35) Mean Corpuscular Hemoglobin Concent 34 g/dL (31-37) Red Cell Distribution Width 12.9 % (11.5-14.5) Platelet Count 294 x10^3/uL (140-400) Neutrophils (%) (Auto) 89 % (31-73) Lymphocytes (%) (Auto) 7 % (24-48) Monocytes (%) (Auto) 4 % (0-9) Eosinophils (%) (Auto) 0 % (0-3) Basophils (%) (Auto) 0 % (0-3) Neutrophils # (Auto) 15.7 x10^3/uL (1.8-7.7) Lymphocytes # (Auto) 1.3 x10^3/uL (1.0-4.8) Monocytes # (Auto) 0.7 x10^3/uL (0.0-1.1) Eosinophils # (Auto) 0.0 x10^3/uL (0.0-0.7) Basophils # (Auto) 0.0 x10^3/uL (0.0-0.2) Segmented Neutrophils % 86 % (35-66) Band Neutrophils % 3 % (0-9) Lymphocytes % 6 % (24-48) Monocytes % 5 % (0-10) Platelet Estimate Adequate (ADEQUATE) Sodium Level 138 mmol/L (136-145) Potassium Level 4.3 mmol/L (3.5-5.1) Chloride Level 105 mmol/L (98-107) Carbon Dioxide Level 27 mmol/L (21-32) Anion Gap 6 (6-14) Blood Urea Nitrogen 16 mg/dL (7-20) Creatinine 1.2 mg/dL (0.6-1.0) Estimated GFR (Cockcroft-Gault) 47.7 BUN/Creatinine Ratio 13 (6-20) Glucose Level 196 mg/dL (70-99) Calcium Level 8.9 mg/dL (8.5-10.1) Total Bilirubin 1.4 mg/dL (0.2-1.0) Aspartate Amino Transf (AST/SGOT) 401 U/L (15-37) Alanine Aminotransferase (ALT/SGPT) 249 U/L (14-59) Alkaline Phosphatase 87 U/L (46-116) Total Protein 6.0 g/dL (6.4-8.2) Albumin 3.4 g/dL (3.4-5.0) Albumin/Globulin Ratio 1.3 (1.0-1.7) Lipase 34901 U/L (73-393) Urine Collection Type Unknown Urine Color Yellow Urine Clarity Clear Urine pH 5.5 (<5.0-8.0) Urine Specific [place] >=1.030 (1.000-1.030) Urine Protein Negative mg/dL (NEG-TRACE) Urine Glucose (UA) Negative mg/dL (NEG) Urine Ketones (Stick) Negative mg/dL (NEG) Urine Blood Negative (NEG) Urine Nitrite Negative (NEG) Urine Bilirubin Negative (NEG) Urine Urobilinogen Dipstick 1.0 mg/dL (0.2 mg/dL) Urine Leukocyte Esterase Negative (NEG) Urine RBC 0 /HPF (0-2) Urine WBC 0 /HPF (0-4) Urine Squamous Epithelial Cells Few /LPF Urine Bacteria 0 /HPF (0-FEW) Assessment/Plan Assessment/Plan gallstone pancreatitis allow resolution of pancreatitis prior to ronel MARV WYNNE MD 07/04/19 1215: CONSULT Assessment/Plan Assessment/Plan pt seen, interviewed and examined agree with above will follow for timing of l/s ronel Thanks for consult 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 APRN Jul 04, 2019 12:05 MARV WYNNE MD Jul 04, 2019 12:15
[2019-07-04] MEDS: ONDANSETRON PF 4 MG/2 ML VIAL. IV PRN ×3 (12:30→20:58)
--- NOTE | 2019-07-04 12:33 | NUR ---
SS following for discharge planning. SS reviewed pt chart. Pt is self pay pt. HCFS following for self pay status. Pt is from home and is currently on room air. SS will continue to follow for discharge planning.
[2019-07-04 15:00] VITALS: BP 116/76
[2019-07-04] MEDS: PROCHLORPERAZINE 10 MG/2 ML VIAL. IV PRN (17:46)
[2019-07-04] MEDS ORDERED: BISO5TAB8 PO ×2 (18:50→19:21)
[2019-07-04 19:15] VITALS: BP 122/81
[2019-07-04] MEDS: METOPROLOL TARTRATE 5 MG/5 ML VIAL. IVP SCH (20:58)
[2019-07-04 23:51] VITALS: BP 109/73
[2019-07-05] VITALS (11 sets, daily range): BP systolic 107–140; BP diastolic 57–80
[2019-07-05] MEDS: PROCHLORPERAZINE 10 MG/2 ML VIAL. IV PRN (00:42)
[2019-07-05] MEDS: METOPROLOL TARTRATE 5 MG/5 ML VIAL. IVP SCH ×5 (00:42→18:00)
[2019-07-05] MEDS: MORPHINE SULFATE 2 MG/ML VIAL. IV PRN ×5 (00:43→12:26)
[2019-07-05] MEDS: INSULIN LISPRO 300 UNITS/3 ML VIAL. SQ SCH ×4 (00:52→18:05)
[2019-07-05] MEDS: ONDANSETRON PF 4 MG/2 ML VIAL. IV PRN ×4 (03:29→22:51)
[2019-07-05] MEDS: PANTOPRAZOLE IV PUSH 40 MG VIAL. IVP SCH (08:54)
[2019-07-05] MEDS ORDERED: ATENOLOL 50 MG TABLET. PO SCH (09:00)
--- NOTE | 2019-07-05 09:00 | PDOC ---
PROGRESS NOTES Chief Complaint Chief Complaint A/P: Acute pancreatitis - without necrosis or infection, likely gallstone pancreatitis. GI and general surgery consulted. Will keep NPO, pain control. Will repeat Calculus of gallbladder with acute cholecystitis without obstruction - with secondary pancreatitis. Lap ronel is indicated Prediabetes - will keep on sliding scale HTN - cont prn hydralazine Leukocytosis - she meets SIRS criteria with acute pancreatitis as end organ dysfunction, no sign of infection, will repeat CT FEN - NPO PPX - lovenox FULL CODE Dispo - inpatient for 2 midnights History of Present Illness History of Present Illness Ms Diaz is a 48yo F w/ PMHx HTN, prediabetes who presents the emergency room complaints of abdominal pain. Patient described off and on 3 days. She states is constant, described as a squeezing sensation in a band-like distribution. + nausea, vomiting. She denies any fever or diarrhea. Patient denies any abdominal surgical procedures. She states is worse with movements, car ride. Pain initially was upper abdomen however now pretty much generalized. Last bowel movement was 07/03/2019. Nothing makes her pain better. Patient denies any shortness of breath. She does state the pain moves into her chest. Denies any headache or visual changes. Lipase 53451, AST 401, ALT 249, Bilirubin 1.4. CT abdomen confirms pancreatic inflammation, peripancreatic fluid and inflammatory changes around the pancreas consistent with pancreatitis. Cholelithiasis and 1.4cm uterine fibroid as well as possible left salpingitis. Admitted for further care Overnight per report no urine output. Still with severe pain, no urine on bladder scan. Afebrile overnight, but very tachycardic. No CP or SOB. She is asking for something to drink. Unable to get labs this morning. Plan: Add dilaudid. PICC for poor access, need for frequent blood draws Renal US, concern for decreased UOP Low threshold for ICU transfer if she continues to decompensate Vitals Vitals Vital Signs Date Time Temp Pulse Resp B/P (MAP) Pulse Ox O2 Delivery O2 Flow Rate FiO2 07/05/19 07:00 98.0 108 20 107/57 (74) 92 Room Air 98.0 Physical Exam General: Alert, Oriented X3, Cooperative, moderate distress Heart: Regular rate, Normal S1, Normal S2, No murmurs Abdomen: Normal bowel sounds, Soft, No hepatosplenomegaly, No masses, Other (Diffuse tenderness) Extremities: No clubbing, No cyanosis, No edema, Normal pulses, No tenderness/swelling Skin: No rashes, No breakdown, No significant lesion Labs LABS Laboratory Tests Test 07/04/19 12:42 07/04/19 17:45 07/05/19 00:40 07/05/19 03:27 Glucose (Fingerstick) 224 mg/dL (70-99) 209 mg/dL (70-99) 212 mg/dL (70-99) 196 mg/dL (70-99) Test 07/05/19 05:44 Glucose (Fingerstick) 186 mg/dL (70-99) Assessment and Plan Assessmemt and Plan Problems Medical Problems: (1) Acute pancreatitis Status: Acute (2) Cholelithiasis Status: Acute Comment Review of Relevant I have reviewed the following items kolby (where applicable) has been applied. Labs Laboratory Tests Test 07/04/19 03:40 07/04/19 05:31 07/04/19 12:42 07/04/19 17:45 White Blood Count 17.7 x10^3/uL (4.0-11.0) Red Blood Count 4.55 x10^6/uL (3.50-5.40) Hemoglobin 15.2 g/dL (12.0-15.5) Hematocrit 44.3 % (36.0-47.0) Mean Corpuscular Volume 98 fL (79-100) Mean Corpuscular Hemoglobin 33 pg (25-35) Mean Corpuscular Hemoglobin Concent 34 g/dL (31-37) Red Cell Distribution Width 12.9 % (11.5-14.5) Platelet Count 294 x10^3/uL (140-400) Neutrophils (%) (Auto) 89 % (31-73) Lymphocytes (%) (Auto) 7 % (24-48) Monocytes (%) (Auto) 4 % (0-9) Eosinophils (%) (Auto) 0 % (0-3) Basophils (%) (Auto) 0 % (0-3) Neutrophils # (Auto) 15.7 x10^3/uL (1.8-7.7) Lymphocytes # (Auto) 1.3 x10^3/uL (1.0-4.8) Monocytes # (Auto) 0.7 x10^3/uL (0.0-1.1) Eosinophils # (Auto) 0.0 x10^3/uL (0.0-0.7) Basophils # (Auto) 0.0 x10^3/uL (0.0-0.2) Segmented Neutrophils % 86 % (35-66) Band Neutrophils % 3 % (0-9) Lymphocytes % 6 % (24-48) Monocytes % 5 % (0-10) Platelet Estimate Adequate (ADEQUATE) Sodium Level 138 mmol/L (136-145) Potassium Level 4.3 mmol/L (3.5-5.1) Chloride Level 105 mmol/L (98-107) Carbon Dioxide Level 27 mmol/L (21-32) Anion Gap 6 (6-14) Blood Urea Nitrogen 16 mg/dL (7-20) Creatinine 1.2 mg/dL (0.6-1.0) Estimated GFR (Cockcroft-Gault) 47.7 BUN/Creatinine Ratio 13 (6-20) Glucose Level 196 mg/dL (70-99) Calcium Level 8.9 mg/dL (8.5-10.1) Total Bilirubin 1.4 mg/dL (0.2-1.0) Aspartate Amino Transf (AST/SGOT) 401 U/L (15-37) Alanine Aminotransferase (ALT/SGPT) 249 U/L (14-59) Alkaline Phosphatase 87 U/L (46-116) Total Protein 6.0 g/dL (6.4-8.2) Albumin 3.4 g/dL (3.4-5.0) Albumin/Globulin Ratio 1.3 (1.0-1.7) Lipase 37799 U/L (73-393) Urine Collection Type Unknown Urine Color Yellow Urine Clarity Clear Urine pH 5.5 (<5.0-8.0) Urine Specific [place] >=1.030 (1.000-1.030) Urine Protein Negative mg/dL (NEG-TRACE) Urine Glucose (UA) Negative mg/dL (NEG) Urine Ketones (Stick) Negative mg/dL (NEG) Urine Blood Negative (NEG) Urine Nitrite Negative (NEG) Urine Bilirubin Negative (NEG) Urine Urobilinogen Dipstick 1.0 mg/dL (0.2 mg/dL) Urine Leukocyte Esterase Negative (NEG) Urine RBC 0 /HPF (0-2) Urine WBC 0 /HPF (0-4) Urine Squamous Epithelial Cells Few /LPF Urine Bacteria 0 /HPF (0-FEW) Glucose (Fingerstick) 224 mg/dL (70-99) 209 mg/dL (70-99) Test 07/05/19 00:40 07/05/19 03:27 07/05/19 05:44 Glucose (Fingerstick) 212 mg/dL (70-99) 196 mg/dL (70-99) 186 mg/dL (70-99) Laboratory Tests Test 07/04/19 12:42 07/04/19 17:45 07/05/19 00:40 07/05/19 03:27 Glucose (Fingerstick) 224 mg/dL (70-99) 209 mg/dL (70-99) 212 mg/dL (70-99) 196 mg/dL (70-99) Test 07/05/19 05:44 Glucose (Fingerstick) 186 mg/dL (70-99) Medications Current Medications Sodium Chloride 1,000 ml @ 1,000 mls/hr Q1H IV Last administered on 07/04/19at 03:00; Start 07/04/19 at 03:00; Stop 07/04/19 at 03:59; Status DC Ondansetron HCl (Zofran) 4 mg 1X ONCE IVP Last administered on 07/04/19at 03:27; Start 07/04/19 at 03:00; Stop 07/04/19 at 03:01; Status DC Morphine Sulfate (Morphine Sulfate) 4 mg 1X ONCE IV ; Start 07/04/19 at 03:00; Stop 07/04/19 at 03:01; Status Cancel Ketorolac Tromethamine (Toradol 30mg Vial) 30 mg 1X ONCE IV Last administered on 07/04/19at 02:54; Start 07/04/19 at 03:00; Stop 07/04/19 at 03:01; Status DC Fentanyl Citrate (Fentanyl 2ml Vial) 25 mcg 1X ONCE IVP Last administered on 07/04/19at 03:23; Start 07/04/19 at 03:30; Stop 07/04/19 at 03:31; Status DC Fentanyl Citrate (Fentanyl 2ml Vial) 100 mcg STK-MED ONCE .ROUTE ; Start 07/04/19 at 03:18; Stop 07/04/19 at 03:18; Status DC Iohexol (Omnipaque 350 Mg/ml) 90 ml 1X ONCE IV Last administered on 07/04/19at 03:25; Start 07/04/19 at 03:30; Stop 07/04/19 at 03:31; Status DC Info (CONTRAST GIVEN -- Rx MONITORING) 1 each PRN DAILY PRN MC SEE COMMENTS; Start 07/04/19 at 03:30; Stop 07/06/19 at 03:29 Hydromorphone HCl (Dilaudid) 0.5 mg 1X ONCE IV Last administered on 07/04/19at 03:55; Start 07/04/19 at 04:30; Stop 07/04/19 at 04:32; Status DC Ondansetron HCl (Zofran) 4 mg PRN Q8HRS PRN IV NAUSEA/VOMITING 1ST CHOICE; Start 07/04/19 at 05:00; Stop 07/04/19 at 09:27; Status DC Morphine Sulfate (Morphine Sulfate) 2 mg PRN Q2HR PRN IV SEVERE PAIN 7-10 Last administered on 07/05/19at 08:55; Start 07/04/19 at 05:00 Sodium Chloride 1,000 ml @ 125 mls/hr Q8H IV Last administered on 07/04/19at 20:56; Start 07/04/19 at 05:00; Stop 07/05/19 at 04:59; Status DC Hydromorphone HCl (Dilaudid) 0.5 mg PRN Q3HRS PRN IV SEVERE PAIN 7-10 Last administered on 07/04/19at 23:02; Start 07/04/19 at 05:00 Piperacillin Sod/ Tazobactam Sod 4.5 gm/Sodium Chloride 100 ml @ 200 mls/hr 1X ONCE IV Last administered on 07/04/19at 05:44; Start 07/04/19 at 06:00; Stop 07/04/19 at 06:29; Status DC Ondansetron HCl (Zofran) 4 mg PRN Q4HRS PRN IV NAUSEA/VOMITING 1ST CHOICE Last administered on 07/05/19at 03:29; Start 07/04/19 at 09:30 Insulin Human Lispro (HumaLOG) 0-9 UNITS Q6HRS SQ Last administered on 07/05/19at 00:52; Start 07/04/19 at 09:30 Dextrose (Dextrose 50%-Water Syringe) 12.5 gm PRN Q15MIN PRN IV SEE COMMENTS; Start 07/04/19 at 09:30 Pantoprazole Sodium (PROTONIX VIAL for IV PUSH) 40 mg DAILYAC IVP Last administered on 07/05/19at 08:54; Start 07/04/19 at 11:30 Prochlorperazine Edisylate (Compazine) 10 mg PRN Q6HRS PRN IV NAUSEA/VOMITING Last administered on 07/05/19at 00:42; Start 07/04/19 at 17:45 Atenolol (Tenormin) 100 mg DAILY PO ; Start 07/05/19 at 09:00; Stop 07/04/19 at 20:08; Status DC Metoprolol Tartrate (Lopressor Vial) 2.5 mg Q6HRS IVP Last administered on 07/05/19at 05:51; Start 07/04/19 at 20:15 Active Scripts Active Reported Bisoprolol Fumarate 5 Mg Tablet 10 Mg PO DAILY Vitals/I & O Vital Sign - Last 24 Hours 07/04/19 07/04/19 07/04/19 07/04/19 09:11 10:10 10:40 11:00 Temp 97.8 97.8 Pulse 77 Resp 16 B/P (MAP) 160/68 (98) Pulse Ox 99 99 99 96 O2 Delivery Nasal Cannula 07/04/19 07/04/19 07/04/19 07/04/19 12:02 12:31 12:32 13:01 Pulse Ox 96 96 96 96 07/04/19 07/04/19 07/04/19 07/04/19 14:11 14:41 15:00 16:07 Temp 97.4 97.4 Pulse 97 Resp 16 B/P (MAP) 116/76 (89) Pulse Ox 96 96 94 96 O2 Delivery Room Air 07/04/19 07/04/19 07/04/19 07/04/19 16:37 17:02 17:32 19:15 Temp 98.5 98.5 Pulse 124 Resp 14 B/P (MAP) 122/81 (95) Pulse Ox 96 96 96 94 O2 Delivery Room Air 07/04/19 07/04/19 07/04/19 07/04/19 20:20 20:58 20:58 21:35 Pulse 124 Resp 18 16 B/P (MAP) 122/87 Pulse Ox 96 96 O2 Delivery Room Air Room Air Room Air 07/04/19 07/04/19 07/04/19 07/05/19 23:02 23:47 23:51 00:42 Temp 98.0 98.0 Pulse 109 109 Resp 18 17 16 B/P (MAP) 109/73 (85) 109/73 Pulse Ox 96 96 96 O2 Delivery Room Air Room Air Room Air 07/05/19 07/05/19 07/05/19 07/05/19 00:43 01:13 03:29 03:54 Temp 97.9 97.9 Pulse 123 Resp 18 16 16 20 B/P (MAP) 110/65 (80) Pulse Ox 96 96 96 94 O2 Delivery Room Air Room Air Room Air Room Air 07/05/19 07/05/19 07/05/19 07/05/19 03:59 05:51 05:55 06:25 Pulse 123 Resp 16 18 14 B/P (MAP) 110/65 Pulse Ox 94 94 O2 Delivery Room Air Room Air Room Air 07/05/19 07:00 Temp 98.0 98.0 Pulse 108 Resp 20 B/P (MAP) 107/57 (74) Pulse Ox 92 O2 Delivery Room Air Intake and Output 07/04/19 07/04/19 07/05/19 14:59 22:59 06:59 Intake Total 0 ml 0 ml Balance 0 ml 0 ml DAVIN LANDEROS MD Jul 05, 2019 09:00
[2019-07-05] MEDS: HYDROmorphone 2 MG/ML VIAL IV PRN ×4 (10:06→22:12)
--- NOTE | 2019-07-05 11:41 | PDOC ---
Subjective: Subjective: Still hurts, would like water, wonders how long this will all take. Objective: Vital Signs: Vital Signs Date Time Temp Pulse Resp B/P (MAP) Pulse Ox O2 Delivery O2 Flow Rate FiO2 07/05/19 10:09 135 122/71 07/05/19 07:00 98.0 20 92 Room Air 98.0 Labs: Laboratory Tests Test 07/04/19 12:42 07/04/19 17:45 07/05/19 00:40 07/05/19 03:27 Glucose (Fingerstick) 224 mg/dL 209 mg/dL 212 mg/dL 196 mg/dL Test 07/05/19 05:44 Glucose (Fingerstick) 186 mg/dL PE: GEN: NAD, was resting LUNGS: clear anteriorly HEART: tachycardic ABD: soft, quiet, uncomfortable NEURO/PSYCH: A & O 3 A/P: Gallstone pancreatitis, possible cholecystitis -- Labs pending. Would keep to NPO except ice chips. Hemodynamically unstable?: No Is patient in severe pain?: Yes Is NPO status required?: Yes CYNDEE FALCON Jul 05, 2019 11:41
--- NOTE | 2019-07-05 11:55 | PDOC ---
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 LOOSELEAF B[employer]ER COVERER 07/05/19 1155: SURGICAL PROGRESS NOTE Subjective pain across abdomen noted no UOP Vital Signs Vital Signs Date Time Temp Pulse Resp B/P (MAP) Pulse Ox O2 Delivery O2 Flow Rate FiO2 07/05/19 10:09 135 122/71 07/05/19 07:00 98.0 20 92 Room Air 98.0 I&O Intake and Output 07/05/19 07:00 Intake Total 0 ml Balance 0 ml Intake Oral 0 ml # Voids 6 General: Cooperative, Other (acutely ill appearing ) Abdomen: Soft, Other (TTP across upper abdomen ) Labs Laboratory Tests Test 07/04/19 03:40 07/04/19 05:31 07/04/19 12:42 07/04/19 17:45 White Blood Count 17.7 x10^3/uL (4.0-11.0) Red Blood Count 4.55 x10^6/uL (3.50-5.40) Hemoglobin 15.2 g/dL (12.0-15.5) Hematocrit 44.3 % (36.0-47.0) Mean Corpuscular Volume 98 fL (79-100) Mean Corpuscular Hemoglobin 33 pg (25-35) Mean Corpuscular Hemoglobin Concent 34 g/dL (31-37) Red Cell Distribution Width 12.9 % (11.5-14.5) Platelet Count 294 x10^3/uL (140-400) Neutrophils (%) (Auto) 89 % (31-73) Lymphocytes (%) (Auto) 7 % (24-48) Monocytes (%) (Auto) 4 % (0-9) Eosinophils (%) (Auto) 0 % (0-3) Basophils (%) (Auto) 0 % (0-3) Neutrophils # (Auto) 15.7 x10^3/uL (1.8-7.7) Lymphocytes # (Auto) 1.3 x10^3/uL (1.0-4.8) Monocytes # (Auto) 0.7 x10^3/uL (0.0-1.1) Eosinophils # (Auto) 0.0 x10^3/uL (0.0-0.7) Basophils # (Auto) 0.0 x10^3/uL (0.0-0.2) Segmented Neutrophils % 86 % (35-66) Band Neutrophils % 3 % (0-9) Lymphocytes % 6 % (24-48) Monocytes % 5 % (0-10) Platelet Estimate Adequate (ADEQUATE) Sodium Level 138 mmol/L (136-145) Potassium Level 4.3 mmol/L (3.5-5.1) Chloride Level 105 mmol/L (98-107) Carbon Dioxide Level 27 mmol/L (21-32) Anion Gap 6 (6-14) Blood Urea Nitrogen 16 mg/dL (7-20) Creatinine 1.2 mg/dL (0.6-1.0) Estimated GFR (Cockcroft-Gault) 47.7 BUN/Creatinine Ratio 13 (6-20) Glucose Level 196 mg/dL (70-99) Calcium Level 8.9 mg/dL (8.5-10.1) Total Bilirubin 1.4 mg/dL (0.2-1.0) Aspartate Amino Transf (AST/SGOT) 401 U/L (15-37) Alanine Aminotransferase (ALT/SGPT) 249 U/L (14-59) Alkaline Phosphatase 87 U/L (46-116) Total Protein 6.0 g/dL (6.4-8.2) Albumin 3.4 g/dL (3.4-5.0) Albumin/Globulin Ratio 1.3 (1.0-1.7) Lipase 90581 U/L (73-393) Urine Collection Type Unknown Urine Color Yellow Urine Clarity Clear Urine pH 5.5 (<5.0-8.0) Urine Specific [place] >=1.030 (1.000-1.030) Urine Protein Negative mg/dL (NEG-TRACE) Urine Glucose (UA) Negative mg/dL (NEG) Urine Ketones (Stick) Negative mg/dL (NEG) Urine Blood Negative (NEG) Urine Nitrite Negative (NEG) Urine Bilirubin Negative (NEG) Urine Urobilinogen Dipstick 1.0 mg/dL (0.2 mg/dL) Urine Leukocyte Esterase Negative (NEG) Urine RBC 0 /HPF (0-2) Urine WBC 0 /HPF (0-4) Urine Squamous Epithelial Cells Few /LPF Urine Bacteria 0 /HPF (0-FEW) Glucose (Fingerstick) 224 mg/dL (70-99) 209 mg/dL (70-99) Test 07/05/19 00:40 07/05/19 03:27 07/05/19 05:44 07/05/19 11:48 Glucose (Fingerstick) 212 mg/dL (70-99) 196 mg/dL (70-99) 186 mg/dL (70-99) 231 mg/dL (70-99) Laboratory Tests Test 07/04/19 12:42 07/04/19 17:45 07/05/19 00:40 07/05/19 03:27 Glucose (Fingerstick) 224 mg/dL (70-99) 209 mg/dL (70-99) 212 mg/dL (70-99) 196 mg/dL (70-99) Test 07/05/19 05:44 07/05/19 11:48 Glucose (Fingerstick) 186 mg/dL (70-99) 231 mg/dL (70-99) Problem List Problems Medical Problems: (1) Acute pancreatitis Status: Acute (2) Cholelithiasis Status: Acute Assessment/Plan pancreatitis labs are pending supportive care MARV WYNNE MD 07/05/19 1305: SURGICAL PROGRESS NOTE Assessment/Plan pt seen thirsty still has pain labs PND NICKEL,LISANDRO L [employer]OOSELEAF [employer] COVERER Jul 05, 2019 11:55 MARV WYNNE MD Jul 05, 2019 13:05
--- NOTE | 2019-07-05 11:59 | RAD ---
EXAM: Renal sonogram. HISTORY: No urine output. TECHNIQUE: Sonographic imaging of the kidneys and bladder was performed. COMPARISON: None. FINDINGS: The kidneys are normal in size. No solid or cystic renal lesion is seen. There is no hydronephrosis. There is a Lind catheter within a nearly empty bladder. IMPRESSION: 1. Sonographically unremarkable kidneys. 2. Lind catheter within a nearly empty bladder. Electronically signed by: hSerlyn Martinez MD (07/05/2019 11:56 AM) [id number]
[2019-07-05] MEDS ORDERED: LIDOCAINE WITH 8.4% SOD BICARB 3 ML DISP.SYRIN. ONE (12:55)
--- NOTE | 2019-07-05 14:16 | NUR ---
This RN was called to Vascular lab to assist with patient who was in respiratory distress, diaphoretic,and tachycardic. Patient had right upper extremity PICC line placed by Dr. Nobles. Patient's nurse on had given patient IV morphine prior to patient going to Vascular lab. Patient placed on 2L of oxygen per nasal cannula and oxygen saturation was 98%. Patient remained diaphoretic and blood pressure was 88/55. Patient complained of nausea and abdominal pain. 150cc fluid bolus of normal saline administered and patient's blood pressure came up to 111/58. Patient's heart rate remained elevated at 140. Dr. Villanueva notified of patient's condition and he requested that patient be transferred to ICU. Pneumatic Deicer Inspector (Natalya) notified of need for ICU bed. Report given to Johnson LE in ICU and this RN and Mayank from vascular lab transferred patient by bed to ICU room 116.
[2019-07-05] MEDS ORDERED: ALBUMIN HUMAN 5% 500 ML IV ONE (14:30)
[2019-07-05] MEDS: NOREPINEPHRINE VIAL 8 MG in IV DEXTROSE 5% 250 ML IV PRN (15:24)
--- NOTE | 2019-07-05 16:08 | RAD ---
Exam: Fluoroscopic and ultrasound guided right percutaneous inserted central venous catheter placement 07/05/2019 2:05 PM .Indication: Poor perihperal access, unable to get lab draws, pancreatitis cholecystitis Technique: Informed oral and written consent were obtained. The right upper extremity was prepped and draped using sterile barrier technique. All elements of maximal sterile barrier technique including the use of a cap, mask, sterile gown, sterile gloves, large sterile sheet, appropriate hand hygiene, and 2% chlorhexidine for cutaneous antisepsis (or acceptable alternative antiseptic per current guidelines) were followed for this procedure.. Real-time ultrasound demonstrated a patent right basilic vein which was prepped and draped in usual sterile fashion. 1% lidocaine used for local anesthesia. Using real-time ultrasound guidance the access needle percutaneously punctured the selected right basilic vein. Reference ultrasound images were saved to the medical record. A guidewire was advanced through the needle to the cavoatrial junction, and a peel-away sheath placed. The catheter was cut to length and inserted through the peel-away sheath such that its tip is at the cavoatrial junction. The wire and sheath were removed, and the catheter secured in place, and a sterile dressing was applied. Catheter was found to flush and aspirate normally. No immediate complications are identified. FLUORO TIME: 0.3 DOSE AREA PRODUCT: 1Gycm2 Impression: Ultrasound and fluoroscopically guided placement of a right upper extremity PICC line.
--- NOTE | 2019-07-05 16:21 | PDOC ---
PROGRESS NOTES Chief Complaint Chief Complaint A/P: Acute pancreatitis - without necrosis or infection, likely gallstone pancreatitis. GI and general surgery consulted. Will keep NPO, pain control. Will repeat CT now Calculus of gallbladder with acute cholecystitis without obstruction - with secondary pancreatitis. Lap ronel is indicated, will need to await pancreatitis resolution Prediabetes - will keep on sliding scale HTN - cont prn hydralazine Leukocytosis - she meets SIRS criteria with acute pancreatitis as end organ dysfunction, no sign of infection, will repeat CT abdomen now Hypoxia - possibly multifactorial with her pain medication dosing. Will obtain CXR FEN - NPO PPX - lovenox FULL CODE Dispo - inpatient for 2 midnights. Transferred to ICU for worsening pancreatitis symptoms CC time 45 minutes History of Present Illness History of Present Illness Ms Diaz is a 48yo F w/ PMHx HTN, prediabetes who presents the emergency room complaints of abdominal pain. Patient described off and on 3 days. She states is constant, described as a squeezing sensation in a band-like distribution. + nausea, vomiting. She denies any fever or diarrhea. Patient denies any abdominal surgical procedures. She states is worse with movements, car ride. Pain initially was upper abdomen however now pretty much generalized. Last bowel movement was 07/03/2019. Nothing makes her pain better. Patient denies any shortness of breath. She does state the pain moves into her chest. Denies any headache or visual changes. Lipase 23341, AST 401, ALT 249, Bilirubin 1.4. CT abdomen confirms pancreatic inflammation, peripancreatic fluid and inflammatory changes around the pancreas consistent with pancreatitis. C holelithiasis and 1.4cm uterine fibroid as well as possible left salpingitis. Admitted for further care 07/04 am: Overnight per report no urine output. Still with severe pain, no urine on bladder scan. Afebrile overnight, but very tachycardic. No CP or SOB. She is asking for something to drink. Unable to get labs this morning. Added dilaudid for pain, PICC placed per IR. Renal US negative. Seen bedside in ICU, given 2L additional NSS and albumin infusion. Still hypotensive, started on levophed. Repeat CT abdomen pending. SOB improved after IVF. Pain controlled on dilaudid. Updated her fiancee Plan: ICU overnight Repeat CT abdomen, if pancreatic necrosis noted or she becomes febrile, will order antibiotics. Albumin bolus BID prn in addition to NSS Repeat labs now. Vitals Vitals Vital Signs Date Time Temp Pulse Resp B/P (MAP) Pulse Ox O2 Delivery O2 Flow Rate FiO2 07/05/19 15:40 Nasal Cannula 4.0 07/05/19 15:33 25 100 07/05/19 15:00 97.3 140 97.3 Physical Exam General: Cooperative, Other (acutely ill appearing ) Heart: Regular rate, Normal S1, Normal S2, No murmurs Abdomen: Soft, Other (TTP across upper abdomen ) Extremities: No clubbing, No cyanosis, No edema, Normal pulses, No tenderness/swelling Skin: No rashes, No breakdown, No significant lesion Labs LABS Laboratory Tests Test 07/04/19 17:45 07/05/19 00:40 07/05/19 03:27 07/05/19 05:44 Glucose (Fingerstick) 209 mg/dL (70-99) 212 mg/dL (70-99) 196 mg/dL (70-99) 186 mg/dL (70-99) Test 07/05/19 11:48 Glucose (Fingerstick) 231 mg/dL (70-99) Assessment and Plan Assessmemt and Plan Problems Medical Problems: (1) Acute pancreatitis Status: Acute (2) Cholelithiasis Status: Acute Comment Review of Relevant I have reviewed the following items kolby (where applicable) has been applied. Labs Laboratory Tests Test 07/04/19 03:40 07/04/19 05:31 07/04/19 12:42 07/04/19 17:45 White Blood Count 17.7 x10^3/uL (4.0-11.0) Red Blood Count 4.55 x10^6/uL (3.50-5.40) Hemoglobin 15.2 g/dL (12.0-15.5) Hematocrit 44.3 % (36.0-47.0) Mean Corpuscular Volume 98 fL (79-100) Mean Corpuscular Hemoglobin 33 pg (25-35) Mean Corpuscular Hemoglobin Concent 34 g/dL (31-37) Red Cell Distribution Width 12.9 % (11.5-14.5) Platelet Count 294 x10^3/uL (140-400) Neutrophils (%) (Auto) 89 % (31-73) Lymphocytes (%) (Auto) 7 % (24-48) Monocytes (%) (Auto) 4 % (0-9) Eosinophils (%) (Auto) 0 % (0-3) Basophils (%) (Auto) 0 % (0-3) Neutrophils # (Auto) 15.7 x10^3/uL (1.8-7.7) Lymphocytes # (Auto) 1.3 x10^3/uL (1.0-4.8) Monocytes # (Auto) 0.7 x10^3/uL (0.0-1.1) Eosinophils # (Auto) 0.0 x10^3/uL (0.0-0.7) Basophils # (Auto) 0.0 x10^3/uL (0.0-0.2) Segmented Neutrophils % 86 % (35-66) Band Neutrophils % 3 % (0-9) Lymphocytes % 6 % (24-48) Monocytes % 5 % (0-10) Platelet Estimate Adequate (ADEQUATE) Sodium Level 138 mmol/L (136-145) Potassium Level 4.3 mmol/L (3.5-5.1) Chloride Level 105 mmol/L (98-107) Carbon Dioxide Level 27 mmol/L (21-32) Anion Gap 6 (6-14) Blood Urea Nitrogen 16 mg/dL (7-20) Creatinine 1.2 mg/dL (0.6-1.0) Estimated GFR (Cockcroft-Gault) 47.7 BUN/Creatinine Ratio 13 (6-20) Glucose Level 196 mg/dL (70-99) Calcium Level 8.9 mg/dL (8.5-10.1) Total Bilirubin 1.4 mg/dL (0.2-1.0) Aspartate Amino Transf (AST/SGOT) 401 U/L (15-37) Alanine Aminotransferase (ALT/SGPT) 249 U/L (14-59) Alkaline Phosphatase 87 U/L (46-116) Total Protein 6.0 g/dL (6.4-8.2) Albumin 3.4 g/dL (3.4-5.0) Albumin/Globulin Ratio 1.3 (1.0-1.7) Lipase 51000 U/L (73-393) Urine Collection Type Unknown Urine Color Yellow Urine Clarity Clear Urine pH 5.5 (<5.0-8.0) Urine Specific [place] >=1.030 (1.000-1.030) Urine Protein Negative mg/dL (NEG-TRACE) Urine Glucose (UA) Negative mg/dL (NEG) Urine Ketones (Stick) Negative mg/dL (NEG) Urine Blood Negative (NEG) Urine Nitrite Negative (NEG) Urine Bilirubin Negative (NEG) Urine Urobilinogen Dipstick 1.0 mg/dL (0.2 mg/dL) Urine Leukocyte Esterase Negative (NEG) Urine RBC 0 /HPF (0-2) Urine WBC 0 /HPF (0-4) Urine Squamous Epithelial Cells Few /LPF Urine Bacteria 0 /HPF (0-FEW) Glucose (Fingerstick) 224 mg/dL (70-99) 209 mg/dL (70-99) Test 07/05/19 00:40 07/05/19 03:27 07/05/19 05:44 07/05/19 11:48 Glucose (Fingerstick) 212 mg/dL (70-99) 196 mg/dL (70-99) 186 mg/dL (70-99) 231 mg/dL (70-99) Laboratory Tests Test 07/04/19 17:45 07/05/19 00:40 07/05/19 03:27 07/05/19 05:44 Glucose (Fingerstick) 209 mg/dL (70-99) 212 mg/dL (70-99) 196 mg/dL (70-99) 186 mg/dL (70-99) Test 07/05/19 11:48 Glucose (Fingerstick) 231 mg/dL (70-99) Medications Current Medications Sodium Chloride 1,000 ml @ 1,000 mls/hr Q1H IV Last administered on 07/04/19at 03:00; Start 07/04/19 at 03:00; Stop 07/04/19 at 03:59; Status DC Ondansetron HCl (Zofran) 4 mg 1X ONCE IVP Last administered on 07/04/19at 03:27; Start 07/04/19 at 03:00; Stop 07/04/19 at 03:01; Status DC Morphine Sulfate (Morphine Sulfate) 4 mg 1X ONCE IV ; Start 07/04/19 at 03:00; Stop 07/04/19 at 03:01; Status Cancel Ketorolac Tromethamine (Toradol 30mg Vial) 30 mg 1X ONCE IV Last administered on 07/04/19at 02:54; Start 07/04/19 at 03:00; Stop 07/04/19 at 03:01; Status DC Fentanyl Citrate (Fentanyl 2ml Vial) 25 mcg 1X ONCE IVP Last administered on 07/04/19at 03:23; Start 07/04/19 at 03:30; Stop 07/04/19 at 03:31; Status DC Fentanyl Citrate (Fentanyl 2ml Vial) 100 mcg STK-MED ONCE .ROUTE ; Start 07/04/19 at 03:18; Stop 07/04/19 at 03:18; Status DC Iohexol (Omnipaque 350 Mg/ml) 90 ml 1X ONCE IV Last administered on 07/04/19at 03:25; Start 07/04/19 at 03:30; Stop 07/04/19 at 03:31; Status DC Info (CONTRAST GIVEN -- Rx MONITORING) 1 each PRN DAILY PRN MC SEE COMMENTS; Start 07/04/19 at 03:30; Stop 07/06/19 at 03:29 Hydromorphone HCl (Dilaudid) 0.5 mg 1X ONCE IV Last administered on 07/04/19at 03:55; Start 07/04/19 at 04:30; Stop 07/04/19 at 04:32; Status DC Ondansetron HCl (Zofran) 4 mg PRN Q8HRS PRN IV NAUSEA/VOMITING 1ST CHOICE; Start 07/04/19 at 05:00; Stop 07/04/19 at 09:27; Status DC Morphine Sulfate (Morphine Sulfate) 2 mg PRN Q2HR PRN IV SEVERE PAIN 7-10 Last administered on 07/05/19at 12:26; Start 07/04/19 at 05:00; Stop 07/05/19 at 14:15; Status DC Sodium Chloride 1,000 ml @ 125 mls/hr Q8H IV Last administered on 07/04/19at 20:56; Start 07/04/19 at 05:00; Stop 07/05/19 at 04:59; Status DC Hydromorphone HCl (Dilaudid) 0.5 mg PRN Q3HRS PRN IV SEVERE PAIN 7-10 Last administered on 07/05/19at 10:06; Start 07/04/19 at 05:00; Stop 07/05/19 at 12:01; Status DC Piperacillin Sod/ Tazobactam Sod 4.5 gm/Sodium Chloride 100 ml @ 200 mls/hr 1X ONCE IV Last administered on 07/04/19at 05:44; Start 07/04/19 at 06:00; Stop 07/04/19 at 06:29; Status DC Ondansetron HCl (Zofran) 4 mg PRN Q4HRS PRN IV NAUSEA/VOMITING 1ST CHOICE Last administered on 07/05/19at 15:04; Start 07/04/19 at 09:30 Insulin Human Lispro (HumaLOG) 0-9 UNITS Q6HRS SQ Last administered on 07/05/19at 12:33; Start 07/04/19 at 09:30 Dextrose (Dextrose 50%-Water Syringe) 12.5 gm PRN Q15MIN PRN IV SEE COMMENTS; Start 07/04/19 at 09:30 Pantoprazole Sodium (PROTONIX VIAL for IV PUSH) 40 mg DAILYAC IVP Last administered on 07/05/19at 08:54; Start 07/04/19 at 11:30 Prochlorperazine Edisylate (Compazine) 10 mg PRN Q6HRS PRN IV NAUSEA/VOMITING, 2nd CHOICE Last administered on 07/05/19at 00:42; Start 07/04/19 at 17:45 Atenolol (Tenormin) 100 mg DAILY PO ; Start 07/05/19 at 09:00; Stop 07/04/19 at 20:08; Status DC Metoprolol Tartrate (Lopressor Vial) 2.5 mg Q6HRS IVP Last administered on 07/05/19at 05:51; Start 07/04/19 at 20:15; Stop 07/05/19 at 10:02; Status DC Metoprolol Tartrate (Lopressor Vial) 5 mg Q6HRS IVP Last administered on 07/05/19at 10:09; Start 07/05/19 at 10:15 Hydromorphone HCl (Dilaudid) 1 mg PRN Q3HRS PRN IV SEVERE PAIN 7-10 Last administered on 07/05/19at 15:33; Start 07/05/19 at 12:00 Lidocaine HCl (Buffered Lidocaine 1%) 3 ml STK-MED ONCE .ROUTE ; Start 07/05/19 at 12:55; Stop 07/05/19 at 12:56; Status DC Albumin Human 500 ml @ 125 mls/hr 1X ONCE IV Last administered on 07/05/19at 14:33; Start 07/05/19 at 14:30; Stop 07/05/19 at 18:29 Norepinephrine Bitartrate 8 mg/ Dextrose 258 ml @ 17.299 mls/ hr CONT PRN IV PER PROTOCOL Last administered on 07/05/19at 15:24; Start 07/05/19 at 15:30 Sodium Chloride 1,000 ml @ 125 mls/hr Q8H IV ; Start 07/05/19 at 16:00 Albumin Human 500 ml @ 125 mls/hr PRN BID PRN IV After every 2L NSS & BP < 90mm; Start 07/05/19 at 16:00 Active Scripts Active Reported Bisoprolol Fumarate 5 Mg Tablet 10 Mg PO DAILY Vitals/I & O Vital Sign - Last 24 Hours 07/04/19 07/04/19 07/04/19 07/04/19 16:37 17:02 17:32 19:15 Temp 98.5 98.5 Pulse 124 Resp 14 B/P (MAP) 122/81 (95) Pulse Ox 96 96 96 94 O2 Delivery Room Air 07/04/19 07/04/19 07/04/19 07/04/19 20:20 20:58 20:58 21:35 Pulse 124 Resp 18 16 B/P (MAP) 122/87 Pulse Ox 96 96 O2 Delivery Room Air Room Air Room Air 07/04/19 07/04/19 07/04/19 07/05/19 23:02 23:47 23:51 00:42 Temp 98.0 98.0 Pulse 109 109 Resp 18 17 16 B/P (MAP) 109/73 (85) 109/73 Pulse Ox 96 96 96 O2 Delivery Room Air Room Air Room Air 07/05/19 07/05/19 07/05/19 07/05/19 00:43 01:13 03:29 03:54 Temp 97.9 97.9 Pulse 123 Resp 18 16 16 20 B/P (MAP) 110/65 (80) Pulse Ox 96 96 96 94 O2 Delivery Room Air Room Air Room Air Room Air 07/05/19 07/05/19 07/05/19 07/05/19 03:59 05:51 05:55 06:25 Pulse 123 Resp 16 18 14 B/P (MAP) 110/65 Pulse Ox 94 94 O2 Delivery Room Air Room Air Room Air 07/05/19 07/05/19 07/05/19 07/05/19 07:00 08:00 10:09 11:00 Temp 98.0 97.7 98.0 97.7 Pulse 108 135 119 Resp 20 22 B/P (MAP) 107/57 (74) 122/71 119/80 (93) Pulse Ox 92 94 O2 Delivery Room Air Room Air Room Air 07/05/19 07/05/19 07/05/19 15:00 15:33 15:40 Temp 97.3 97.3 Pulse 140 Resp 25 25 B/P (MAP) Pulse Ox 99 100 O2 Delivery Nasal Cannula Nasal Cannula O2 Flow Rate 4.0 4.0 Intake and Output 07/04/19 07/04/19 07/05/19 15:00 23:00 07:00 Intake Total 0 ml 0 ml Balance 0 ml 0 ml Hemodynamically unstable?: No Is patient in severe pain?: Yes Is NPO status required?: Yes DAVIN LANDEROS MD Jul 05, 2019 16:21
[2019-07-05] MEDS ORDERED: CONTRAST GIVEN. MC PRN (17:00)
[2019-07-05] MEDS ORDERED: IOHEXOL 300 MG/ML 100ML VIAL. IV ONE (17:00)
--- NOTE | 2019-07-05 17:41 | RAD ---
INDICATION: Hypoxia with pancreatitis COMPARISON: One day prior FINDINGS: Single view of chest obtained. Hypoexpanded examination of the lungs. Interstitial opacities bilaterally with more focal opacities at the lung bases. Cardiac silhouette is enlarged. Right-sided PICC line with tip at the expected location of the SVC. IMPRESSION: * Hypoexpanded examination of the lungs with opacities at lung bases which could be from development of pleural effusion and airspace consolidation. There is also interstitial opacities bilaterally which could be seen with edema or interstitial infiltrate. Electronically signed by: Dionte Case MD (07/05/2019 5:37 PM) [id number]
[2019-07-05] MEDS: IV NORMAL SALINE 1000ML BAG 1,000 ML IV SCH ×2 (17:42→21:04)
--- NOTE | 2019-07-05 17:44 | RAD ---
Exam: CT of abdomen without and with contrast INDICATION: Pancreatitis TECHNIQUE: Sequential axial images through the abdomen obtained before and after the administration of 60 mL of Omni 300 IV contrast. Sagittal and coronal reformatted images were reconstructed from the axial data and reviewed. Comparisons: None FINDINGS: Heart size is normal. No pericardial effusion. Small bilateral pleural effusions greater on the right with adjacent atelectasis. Liver, spleen, and adrenals are unremarkable. Gallstones are noted within the gallbladder. Diffuse inflammatory changes seen noted surrounding the pancreas. There is generalized hypoenhancement of the pancreatic parenchyma. Extensive inflammatory changes seen surrounding the pancreas which have increased when compared to the prior study. Additionally, there has been development of a small amount of intra-abdominal ascites noted throughout the abdomen. Kidneys demonstrate symmetric enhancement. No perinephric inflammation or hydronephrosis. No renal or ureteral calculi. Visualized portions of the large and small bowel are unremarkable. Abdominal aorta has a normal course and caliber. No enlarged intra-abdominal lymph nodes. No suspicious osseous lesions or acute fractures. IMPRESSION: Progressive inflammatory changes surrounding the pancreas consistent with acute pancreatitis. There is now heterogenous enhancement of the pancreas particularly at the pancreatic neck and tail. This may represent developing necrosis. Repeat follow-up imaging is recommended in 4-6 days to reassess. Exposure: One or more of the following in the visualized dose reduction techniques were utilized for this examination: 1. Automated exposure control 2. Adjustment of the MA and/or KV according to patient size 3. Use of iterative of reconstructive technique Electronically signed by: Renu Marie MD (07/05/2019 5:40 PM) [id number]
[2019-07-05 19:10] LABS: HEMOGLOBIN 13.8 g/dL (12.0-15.5); RED BLOOD COUNT 4.12 x10^6/uL (3.50-5.40); RED CELL DISTRIBUTION WIDTH 13.8 % (11.5-14.5); WHITE BLOOD COUNT 22.7 x10^3/uL (4.0-11.0)
[2019-07-05 20:56] LABS: ALBUMIN 2.8 g/dL (3.4-5.0); ALK PHOS 75 U/L (46-116); ALT (SGPT) 263 U/L (14-59); ANION GAP 13 (6-14); AST (SGOT) 214 U/L (15-37); BLOOD UREA NITROGEN 56 mg/dL (7-20); BUN/CREATININE RATIO 11 (6-20); CARBON DIOXIDE 17 mmol/L (21-32); CHLORIDE 109 mmol/L (98-107); GFR 9.2; GLUCOSE 196 mg/dL (70-99); MAGNESIUM 1.2 mg/dL (1.8-2.4); PHOSPHORUS 1.2 mg/dL (2.6-4.7); SODIUM 139 mmol/L (136-145); TOTAL BILIRUBIN 1.9 mg/dL (0.2-1.0); TOTAL PROTEIN 5.6 g/dL (6.4-8.2)
[2019-07-05] MEDS: MEROPENEM 1 GM in IV NORMAL SALINE 100ML 100 ML IV SCH (21:04)
[2019-07-05 21:10] LABS: CALCIUM < 5.0 mg/dL (8.5-10.1); POTASSIUM 6.8 mmol/L (3.5-5.1)
[2019-07-05] MEDS ORDERED: INSULIN REGULAR 100 UNIT/ML 3ML VIAL. IV ONE (22:30)
[2019-07-05] MEDS ORDERED: CALCIUM CHLORIDE 1,000 MG in IV NORMAL SALINE 100ML 100 ML IV ONE (22:30)
[2019-07-05] MEDS ORDERED: ALBUTEROL SULFATE 2.5 MG/3 ML NEBU. NEB ONE (22:30)
[2019-07-05] MEDS ORDERED: FUROSEMIDE 40 MG/4 ML VIAL. IVP ONE (22:30)
[2019-07-06] VITALS (28 sets, daily range): BP systolic 85–139; BP diastolic 57–79
[2019-07-06 00:07] LABS: HEMOGLOBIN A1C 5.6 % (4.8-5.6)
[2019-07-06 00:26] LABS: HEMATOCRIT 45.5 % (36.0-47.0); HEMOGLOBIN 15.1 g/dL (12.0-15.5); WHITE BLOOD COUNT 22.9 x10^3/uL (4.0-11.0)
[2019-07-06 00:39] LABS: CREATININE 5.5 mg/dL (0.6-1.0); GFR 8.2; POTASSIUM 5.7 mmol/L (3.5-5.1)
[2019-07-06] MEDS: METOPROLOL TARTRATE 5 MG/5 ML VIAL. IVP SCH ×4 (00:46→18:00)
[2019-07-06 00:58] LABS: CALCIUM 5.3 mg/dL (8.5-10.1)
[2019-07-06 01:26] LABS: MAGNESIUM 1.3 mg/dL (1.8-2.4); PHOSPHORUS 1.7 mg/dL (2.6-4.7)
[2019-07-06 01:30] LABS: PROTHROMBIN TIME PATIENT 16.8 SEC (11.7-14.0)
[2019-07-06] MEDS: IV NORMAL SALINE 1000ML BAG 1,000 ML IV SCH ×2 (02:46→08:00)
[2019-07-06] MEDS ORDERED: MAGNESIUM SULFATE 2GM 50 ML IV ONE (03:00)
[2019-07-06] MEDS ORDERED: CALCIUM GLUCONATE 1,000 MG in IV NORMAL SALINE 100ML 100 ML IV ONE ×2 (03:00→03:30)
[2019-07-06] MEDS: MEROPENEM 1 GM in IV NORMAL SALINE 100ML 100 ML IV SCH (05:45)
[2019-07-06] MEDS: INSULIN LISPRO 300 UNITS/3 ML VIAL. SQ SCH ×4 (06:00→18:00)
[2019-07-06] MEDS: HYDROmorphone 2 MG/ML VIAL IV PRN ×5 (06:02→23:56)
[2019-07-06 06:09] LABS: BASO % 0 % (0-3); EOS % 0 % (0-3); HEMOGLOBIN 14.2 g/dL (12.0-15.5); LYMPH # 1.3 x10^3/uL (1.0-4.8); LYMPH % 6 % (24-48); MEAN CORPUSCULAR HEMOGLOBIN 34 pg (25-35); MEAN CORPUSCULAR HGB CONC 33 g/dL (31-37); MEAN CORPUSCULAR VOLUME 101 fL (79-100); MONO # 1.4 x10^3/uL (0.0-1.1); MONO % 6 % (0-9); NEUT # 19.8 x10^3/uL (1.8-7.7); NEUT % 88 % (31-73); PLATELET COUNT 207 x10^3/uL (140-400); RED BLOOD COUNT 4.24 x10^6/uL (3.50-5.40); RED CELL DISTRIBUTION WIDTH 14.3 % (11.5-14.5); WHITE BLOOD COUNT 22.6 x10^3/uL (4.0-11.0)
[2019-07-06 06:34] LABS: ALBUMIN 2.1 g/dL (3.4-5.0); ALBUMIN/GLOBULIN RATIO 0.8 (1.0-1.7); ALK PHOS 60 U/L (46-116); ALT (SGPT) 169 U/L (14-59); ANION GAP 15 (6-14); AST (SGOT) 164 U/L (15-37); BLOOD UREA NITROGEN 64 mg/dL (7-20); BUN/CREATININE RATIO 11 (6-20); CARBON DIOXIDE 14 mmol/L (21-32); CHLORIDE 114 mmol/L (98-107); CREATININE 5.9 mg/dL (0.6-1.0); GFR 7.6; GLUCOSE 167 mg/dL (70-99); MAGNESIUM 2.1 mg/dL (1.8-2.4); PHOSPHORUS 1.9 mg/dL (2.6-4.7); POTASSIUM 5.9 mmol/L (3.5-5.1); SODIUM 143 mmol/L (136-145); TOTAL BILIRUBIN 1.3 mg/dL (0.2-1.0); TOTAL PROTEIN 4.8 g/dL (6.4-8.2)
[2019-07-06 06:37] LABS: CALCIUM < 5.0 mg/dL (8.5-10.1)
[2019-07-06 06:50] LABS: LIPASE 3832 U/L (73-393)
[2019-07-06] MEDS ORDERED: CALCIUM GLUCONATE 2,000 MG in IV NORMAL SALINE 100ML 100 ML IV ONE (07:30)
[2019-07-06] MEDS ORDERED: LIDOCAINE 1% PF 2 ML VIAL. ONE (08:47)
--- NOTE | 2019-07-06 08:56 | PDOC ---
Infectious Disease Note Vital Signs: Vital Signs Vital Signs Date Time Temp Pulse Resp B/P (MAP) Pulse Ox O2 Delivery O2 Flow Rate FiO2 07/06/19 07:52 98.1 128 26 102/62 (75) 95 Room Air 98.1 07/06/19 07:00 2.0 Medications: Inpatient Meds: Current Medications Medications (Trade) Dose Ordered Sig/Yvon Start Time Stop Time Status Last Admin Dose Admin Albumin Human 500 ml @ 125 mls/hr PRN BID PRN 07/05/19 16:00 Albuterol Sulfate (Ventolin Neb Soln) 2.5 mg 1X ONCE 07/05/19 22:30 07/05/19 22:31 DC 07/06/19 00:56 2.5 MG Atenolol (Tenormin) 100 mg DAILY 07/05/19 09:00 07/04/19 20:08 DC Calcium Chloride 1000 mg/Sodium Chloride 110 ml @ 220 mls/hr 1X ONCE 07/05/19 22:30 07/05/19 22:59 DC 07/05/19 22:11 220 MLS/HR Calcium Gluconate 1000 mg/Sodium Chloride 110 ml @ 220 mls/hr 1X ONCE 07/06/19 03:30 07/06/19 03:59 DC 07/06/19 03:21 220 MLS/HR Calcium Gluconate 2000 mg/Sodium Chloride 120 ml @ 220 mls/hr 1X ONCE 07/06/19 07:30 07/06/19 08:02 DC Dextrose (Dextrose 50%-Water Syringe) 12.5 gm PRN Q15MIN PRN 07/04/19 09:30 Fentanyl Citrate (Fentanyl 2ml Vial) 100 mcg STK-MED ONCE 07/04/19 03:18 07/04/19 03:18 DC Furosemide (Lasix) 40 mg 1X ONCE 07/05/19 22:30 07/05/19 22:31 DC 07/05/19 22:12 40 MG Hydromorphone HCl (Dilaudid) 1 mg PRN Q3HRS PRN 07/05/19 12:00 07/06/19 06:02 1 MG Info (CONTRAST GIVEN -- Rx MONITORING) 1 each PRN DAILY PRN 07/05/19 17:00 07/07/19 16:59 Insulin Human Lispro (HumaLOG) 0-9 UNITS Q6HRS 07/04/19 09:30 07/05/19 18:05 3 UNITS Insulin Human Regular (HumuLIN R VIAL) 5 unit 1X ONCE 07/05/19 22:30 07/05/19 22:31 DC 07/05/19 22:14 5 UNIT Iohexol (Omnipaque 300 Mg/ml) 60 ml 1X ONCE 07/05/19 17:00 07/05/19 17:01 DC 07/05/19 17:20 60 ML Iohexol (Omnipaque 350 Mg/ml) 90 ml 1X ONCE 07/04/19 03:30 07/04/19 03:31 DC 07/04/19 03:25 90 ML Ketorolac Tromethamine (Toradol 30mg Vial) 30 mg 1X ONCE 07/04/19 03:00 07/04/19 03:01 DC 07/04/19 02:54 30 MG Lidocaine HCl (Buffered Lidocaine 1%) 3 ml STK-MED ONCE 07/05/19 12:55 07/05/19 12:56 DC Lidocaine HCl (Xylocaine-Mpf 1% 2ml Vial) 2 ml STK-MED ONCE 07/06/19 08:47 07/06/19 08:47 DC Magnesium Sulfate 50 ml @ 25 mls/hr 1X ONCE 07/06/19 03:00 07/06/19 04:59 DC 07/06/19 02:57 25 MLS/HR Meropenem 1 gm/ Sodium Chloride 100 ml @ 200 mls/hr Q8HRS 07/05/19 20:00 07/06/19 08:48 DC 07/06/19 05:45 200 MLS/HR Meropenem 500 mg/ Sodium Chloride 50 ml @ 100 mls/hr Q12HR 07/06/19 09:00 UNV Metoprolol Tartrate (Lopressor Vial) 5 mg Q6HRS 07/05/19 10:15 07/06/19 05:46 5 MG Morphine Sulfate (Morphine Sulfate) 2 mg PRN Q2HR PRN 07/04/19 05:00 07/05/19 14:15 DC 07/05/19 12:26 2 MG Norepinephrine Bitartrate 8 mg/ Dextrose 258 ml @ 17.299 mls/ hr CONT PRN 07/05/19 15:30 07/05/19 15:24 17.299 MLS/HR Ondansetron HCl (Zofran) 4 mg PRN Q4HRS PRN 07/04/19 09:30 07/05/19 22:51 4 MG Pantoprazole Sodium (PROTONIX VIAL for IV PUSH) 40 mg DAILYAC 07/04/19 11:30 07/05/19 08:54 40 MG Piperacillin Sod/ Tazobactam Sod 4.5 gm/Sodium Chloride 100 ml @ 200 mls/hr 1X ONCE 07/04/19 06:00 07/04/19 06:29 DC 07/04/19 05:44 200 MLS/HR Prochlorperazine Edisylate (Compazine) 10 mg PRN Q6HRS PRN 07/04/19 17:45 07/05/19 00:42 10 MG Sodium Bicarbonate 50 meq/Sodium Chloride 1,050 ml @ 200 mls/hr Q5H15M 07/06/19 07:30 Sodium Chloride 1,000 ml @ 200 mls/hr Q5H 07/06/19 03:00 07/06/19 02:46 200 MLS/HR Labs: Lab Laboratory Tests Test 07/05/19 11:48 07/05/19 16:50 07/05/19 18:02 07/05/19 20:30 Glucose (Fingerstick) 231 mg/dL (70-99) 232 mg/dL (70-99) White Blood Count 22.7 x10^3/uL (4.0-11.0) Red Blood Count 4.12 x10^6/uL (3.50-5.40) Hemoglobin 13.8 g/dL (12.0-15.5) Hematocrit 42.0 % (36.0-47.0) Mean Corpuscular Volume 102 fL (79-100) Mean Corpuscular Hemoglobin 34 pg (25-35) Mean Corpuscular Hemoglobin Concent 33 g/dL (31-37) Red Cell Distribution Width 13.8 % (11.5-14.5) Platelet Count 212 x10^3/uL (140-400) Sodium Level 139 mmol/L (136-145) Potassium Level 6.8 mmol/L (3.5-5.1) Chloride Level 109 mmol/L (98-107) Carbon Dioxide Level 17 mmol/L (21-32) Anion Gap 13 (6-14) Blood Urea Nitrogen 56 mg/dL (7-20) Creatinine 5.0 mg/dL (0.6-1.0) Estimated GFR (Cockcroft-Gault) 9.2 BUN/Creatinine Ratio 11 (6-20) Glucose Level 196 mg/dL (70-99) Calcium Level < 5.0 mg/dL (8.5-10.1) Phosphorus Level 1.2 mg/dL (2.6-4.7) Magnesium Level 1.2 mg/dL (1.8-2.4) Total Bilirubin 1.9 mg/dL (0.2-1.0) Aspartate Amino Transf (AST/SGOT) 214 U/L (15-37) Alanine Aminotransferase (ALT/SGPT) 263 U/L (14-59) Alkaline Phosphatase 75 U/L (46-116) Total Protein 5.6 g/dL (6.4-8.2) Albumin 2.8 g/dL (3.4-5.0) Albumin/Globulin Ratio 1.0 (1.0-1.7) Test 07/06/19 00:15 07/06/19 00:17 07/06/19 05:45 07/06/19 05:53 White Blood Count 22.9 x10^3/uL (4.0-11.0) 22.6 x10^3/uL (4.0-11.0) Hemoglobin 15.1 g/dL (12.0-15.5) 14.2 g/dL (12.0-15.5) Hematocrit 45.5 % (36.0-47.0) 43.0 % (36.0-47.0) Platelet Count 232 x10^3/uL (140-400) 207 x10^3/uL (140-400) Prothrombin Time 16.8 SEC (11.7-14.0) Prothromb Time International Ratio 1.4 (0.8-1.1) Sodium Level 141 mmol/L (136-145) 143 mmol/L (136-145) Potassium Level 5.7 mmol/L (3.5-5.1) 5.9 mmol/L (3.5-5.1) Chloride Level 112 mmol/L (98-107) 114 mmol/L (98-107) Carbon Dioxide Level 17 mmol/L (21-32) 14 mmol/L (21-32) Anion Gap 12 (6-14) 15 (6-14) Blood Urea Nitrogen 63 mg/dL (7-20) 64 mg/dL (7-20) Creatinine 5.5 mg/dL (0.6-1.0) 5.9 mg/dL (0.6-1.0) Estimated GFR (Cockcroft-Gault) 8.2 7.6 Glucose Level 129 mg/dL (70-99) 167 mg/dL (70-99) Lactic Acid Level 1.6 mmol/L (0.4-2.0) Calcium Level 5.3 mg/dL (8.5-10.1) < 5.0 mg/dL (8.5-10.1) Phosphorus Level 1.7 mg/dL (2.6-4.7) 1.9 mg/dL (2.6-4.7) Magnesium Level 1.3 mg/dL (1.8-2.4) 2.1 mg/dL (1.8-2.4) Glucose (Fingerstick) 127 mg/dL (70-99) 174 mg/dL (70-99) Red Blood Count 4.24 x10^6/uL (3.50-5.40) Mean Corpuscular Volume 101 fL (79-100) Mean Corpuscular Hemoglobin 34 pg (25-35) Mean Corpuscular Hemoglobin Concent 33 g/dL (31-37) Red Cell Distribution Width 14.3 % (11.5-14.5) Neutrophils (%) (Auto) 88 % (31-73) Lymphocytes (%) (Auto) 6 % (24-48) Monocytes (%) (Auto) 6 % (0-9) Eosinophils (%) (Auto) 0 % (0-3) Basophils (%) (Auto) 0 % (0-3) Neutrophils # (Auto) 19.8 x10^3/uL (1.8-7.7) Lymphocytes # (Auto) 1.3 x10^3/uL (1.0-4.8) Monocytes # (Auto) 1.4 x10^3/uL (0.0-1.1) Eosinophils # (Auto) 0.0 x10^3/uL (0.0-0.7) Basophils # (Auto) 0.0 x10^3/uL (0.0-0.2) BUN/Creatinine Ratio 11 (6-20) Total Bilirubin 1.3 mg/dL (0.2-1.0) Aspartate Amino Transf (AST/SGOT) 164 U/L (15-37) Alanine Aminotransferase (ALT/SGPT) 169 U/L (14-59) Alkaline Phosphatase 60 U/L (46-116) Total Protein 4.8 g/dL (6.4-8.2) Albumin 2.1 g/dL (3.4-5.0) Albumin/Globulin Ratio 0.8 (1.0-1.7) Lipase 3832 U/L (73-393) Objective: Assessment: Pt seen and examined ID consult dictated IMP: Acute pancreatitis, early developing necrosis Cholelithiasis Leucocytosis JUANA,Hyperkalemia, Metabolic acidosis,hypocalcemia Prediabetes HTN Plan: Plan of Care cont merrem ,renal dosing, pharmacy to assist Gen surgery, GI following Renal team consulted cont supportive care Thank you YUNIOR JONES MD Jul 06, 2019 08:56
[2019-07-06] MEDS: SODIUM BICARBONATE VIAL 50 MEQ in IV 1/2 NORMAL SALINE 1,000 ML IV SCH ×3 (09:05→19:52)
[2019-07-06] MEDS: PANTOPRAZOLE IV PUSH 40 MG VIAL. IVP SCH (09:05)
[2019-07-06 09:11] LABS: BASE EXCESS ABG -15 mmol/L (-3-3); HCO3 ABG 11 mmol/L (21-28); PCO2 ABG 26 mmHg (35-46); PO2 ABG 77 mmHg (75-108); SAT O2 ABG 95 % (92-99)
[2019-07-06 09:14] LABS: FIO2 ABG 35
--- NOTE | 2019-07-06 09:25 | PDOC ---
SURGICAL PROGRESS NOTE Subjective seen in ICU awake, responds Vital Signs Vital Signs Date Time Temp Pulse Resp B/P (MAP) Pulse Ox O2 Delivery O2 Flow Rate FiO2 07/06/19 09:10 132 122/61 (81) 07/06/19 07:52 98.1 26 95 Room Air 98.1 07/06/19 07:00 2.0 I&O Intake and Output 07/06/19 07:05 Intake Total 4102 ml Output Total 170 ml Balance 3932 ml Intake Oral 0 ml IV Total 4102 ml Output Urine Total 170 ml Bladder Scan Volume Amount # Voids 2 PATIENT HAS A ROSARIO: Yes HEENT: Atraumatic Heart: Other (tachycardic) Abdomen: Other (distended, diffusely TTP ) Labs Laboratory Tests Test 07/04/19 12:42 07/04/19 17:45 07/05/19 00:40 07/05/19 03:27 Glucose (Fingerstick) 224 mg/dL (70-99) 209 mg/dL (70-99) 212 mg/dL (70-99) 196 mg/dL (70-99) Test 07/05/19 05:44 07/05/19 11:48 07/05/19 16:50 07/05/19 18:02 Glucose (Fingerstick) 186 mg/dL (70-99) 231 mg/dL (70-99) 232 mg/dL (70-99) White Blood Count 22.7 x10^3/uL (4.0-11.0) Red Blood Count 4.12 x10^6/uL (3.50-5.40) Hemoglobin 13.8 g/dL (12.0-15.5) Hematocrit 42.0 % (36.0-47.0) Mean Corpuscular Volume 102 fL (79-100) Mean Corpuscular Hemoglobin 34 pg (25-35) Mean Corpuscular Hemoglobin Concent 33 g/dL (31-37) Red Cell Distribution Width 13.8 % (11.5-14.5) Platelet Count 212 x10^3/uL (140-400) Test 07/05/19 20:30 07/06/19 00:15 07/06/19 00:17 07/06/19 05:45 Sodium Level 139 mmol/L (136-145) 141 mmol/L (136-145) 143 mmol/L (136-145) Potassium Level 6.8 mmol/L (3.5-5.1) 5.7 mmol/L (3.5-5.1) 5.9 mmol/L (3.5-5.1) Chloride Level 109 mmol/L (98-107) 112 mmol/L (98-107) 114 mmol/L (98-107) Carbon Dioxide Level 17 mmol/L (21-32) 17 mmol/L (21-32) 14 mmol/L (21-32) Anion Gap 13 (6-14) 12 (6-14) 15 (6-14) Blood Urea Nitrogen 56 mg/dL (7-20) 63 mg/dL (7-20) 64 mg/dL (7-20) Creatinine 5.0 mg/dL (0.6-1.0) 5.5 mg/dL (0.6-1.0) 5.9 mg/dL (0.6-1.0) Estimated GFR (Cockcroft-Gault) 9.2 8.2 7.6 BUN/Creatinine Ratio 11 (6-20) 11 (6-20) Glucose Level 196 mg/dL (70-99) 129 mg/dL (70-99) 167 mg/dL (70-99) Calcium Level < 5.0 mg/dL (8.5-10.1) 5.3 mg/dL (8.5-10.1) < 5.0 mg/dL (8.5-10.1) Phosphorus Level 1.2 mg/dL (2.6-4.7) 1.7 mg/dL (2.6-4.7) 1.9 mg/dL (2.6-4.7) Magnesium Level 1.2 mg/dL (1.8-2.4) 1.3 mg/dL (1.8-2.4) 2.1 mg/dL (1.8-2.4) Total Bilirubin 1.9 mg/dL (0.2-1.0) 1.3 mg/dL (0.2-1.0) Aspartate Amino Transf (AST/SGOT) 214 U/L (15-37) 164 U/L (15-37) Alanine Aminotransferase (ALT/SGPT) 263 U/L (14-59) 169 U/L (14-59) Alkaline Phosphatase 75 U/L (46-116) 60 U/L (46-116) Total Protein 5.6 g/dL (6.4-8.2) 4.8 g/dL (6.4-8.2) Albumin 2.8 g/dL (3.4-5.0) 2.1 g/dL (3.4-5.0) Albumin/Globulin Ratio 1.0 (1.0-1.7) 0.8 (1.0-1.7) White Blood Count 22.9 x10^3/uL (4.0-11.0) 22.6 x10^3/uL (4.0-11.0) Hemoglobin 15.1 g/dL (12.0-15.5) 14.2 g/dL (12.0-15.5) Hematocrit 45.5 % (36.0-47.0) 43.0 % (36.0-47.0) Platelet Count 232 x10^3/uL (140-400) 207 x10^3/uL (140-400) Prothrombin Time 16.8 SEC (11.7-14.0) Prothromb Time International Ratio 1.4 (0.8-1.1) Lactic Acid Level 1.6 mmol/L (0.4-2.0) Glucose (Fingerstick) 127 mg/dL (70-99) Red Blood Count 4.24 x10^6/uL (3.50-5.40) Mean Corpuscular Volume 101 fL (79-100) Mean Corpuscular Hemoglobin 34 pg (25-35) Mean Corpuscular Hemoglobin Concent 33 g/dL (31-37) Red Cell Distribution Width 14.3 % (11.5-14.5) Neutrophils (%) (Auto) 88 % (31-73) Lymphocytes (%) (Auto) 6 % (24-48) Monocytes (%) (Auto) 6 % (0-9) Eosinophils (%) (Auto) 0 % (0-3) Basophils (%) (Auto) 0 % (0-3) Neutrophils # (Auto) 19.8 x10^3/uL (1.8-7.7) Lymphocytes # (Auto) 1.3 x10^3/uL (1.0-4.8) Monocytes # (Auto) 1.4 x10^3/uL (0.0-1.1) Eosinophils # (Auto) 0.0 x10^3/uL (0.0-0.7) Basophils # (Auto) 0.0 x10^3/uL (0.0-0.2) Lipase 3832 U/L (73-393) Test 07/06/19 05:53 07/06/19 09:05 Glucose (Fingerstick) 174 mg/dL (70-99) O2 Saturation 95 % (92-99) Arterial Blood pH 7.23 (7.35-7.45) Arterial Blood pCO2 at Patient Temp 26 mmHg (35-46) Arterial Blood pO2 at Patient Temp 77 mmHg (75-108) Arterial Blood HCO3 11 mmol/L (21-28) Arterial Blood Base Excess -15 mmol/L (-3-3) FiO2 35 Laboratory Tests Test 07/05/19 11:48 07/05/19 16:50 07/05/19 18:02 07/05/19 20:30 Glucose (Fingerstick) 231 mg/dL (70-99) 232 mg/dL (70-99) White Blood Count 22.7 x10^3/uL (4.0-11.0) Red Blood Count 4.12 x10^6/uL (3.50-5.40) Hemoglobin 13.8 g/dL (12.0-15.5) Hematocrit 42.0 % (36.0-47.0) Mean Corpuscular Volume 102 fL (79-100) Mean Corpuscular Hemoglobin 34 pg (25-35) Mean Corpuscular Hemoglobin Concent 33 g/dL (31-37) Red Cell Distribution Width 13.8 % (11.5-14.5) Platelet Count 212 x10^3/uL (140-400) Sodium Level 139 mmol/L (136-145) Potassium Level 6.8 mmol/L (3.5-5.1) Chloride Level 109 mmol/L (98-107) Carbon Dioxide Level 17 mmol/L (21-32) Anion Gap 13 (6-14) Blood Urea Nitrogen 56 mg/dL (7-20) Creatinine 5.0 mg/dL (0.6-1.0) Estimated GFR (Cockcroft-Gault) 9.2 BUN/Creatinine Ratio 11 (6-20) Glucose Level 196 mg/dL (70-99) Calcium Level < 5.0 mg/dL (8.5-10.1) Phosphorus Level 1.2 mg/dL (2.6-4.7) Magnesium Level 1.2 mg/dL (1.8-2.4) Total Bilirubin 1.9 mg/dL (0.2-1.0) Aspartate Amino Transf (AST/SGOT) 214 U/L (15-37) Alanine Aminotransferase (ALT/SGPT) 263 U/L (14-59) Alkaline Phosphatase 75 U/L (46-116) Total Protein 5.6 g/dL (6.4-8.2) Albumin 2.8 g/dL (3.4-5.0) Albumin/Globulin Ratio 1.0 (1.0-1.7) Test 07/06/19 00:15 07/06/19 00:17 07/06/19 05:45 07/06/19 05:53 White Blood Count 22.9 x10^3/uL (4.0-11.0) 22.6 x10^3/uL (4.0-11.0) Hemoglobin 15.1 g/dL (12.0-15.5) 14.2 g/dL (12.0-15.5) Hematocrit 45.5 % (36.0-47.0) 43.0 % (36.0-47.0) Platelet Count 232 x10^3/uL (140-400) 207 x10^3/uL (140-400) Prothrombin Time 16.8 SEC (11.7-14.0) Prothromb Time International Ratio 1.4 (0.8-1.1) Sodium Level 141 mmol/L (136-145) 143 mmol/L (136-145) Potassium Level 5.7 mmol/L (3.5-5.1) 5.9 mmol/L (3.5-5.1) Chloride Level 112 mmol/L (98-107) 114 mmol/L (98-107) Carbon Dioxide Level 17 mmol/L (21-32) 14 mmol/L (21-32) Anion Gap 12 (6-14) 15 (6-14) Blood Urea Nitrogen 63 mg/dL (7-20) 64 mg/dL (7-20) Creatinine 5.5 mg/dL (0.6-1.0) 5.9 mg/dL (0.6-1.0) Estimated GFR (Cockcroft-Gault) 8.2 7.6 Glucose Level 129 mg/dL (70-99) 167 mg/dL (70-99) Lactic Acid Level 1.6 mmol/L (0.4-2.0) Calcium Level 5.3 mg/dL (8.5-10.1) < 5.0 mg/dL (8.5-10.1) Phosphorus Level 1.7 mg/dL (2.6-4.7) 1.9 mg/dL (2.6-4.7) Magnesium Level 1.3 mg/dL (1.8-2.4) 2.1 mg/dL (1.8-2.4) Glucose (Fingerstick) 127 mg/dL (70-99) 174 mg/dL (70-99) Red Blood Count 4.24 x10^6/uL (3.50-5.40) Mean Corpuscular Volume 101 fL (79-100) Mean Corpuscular Hemoglobin 34 pg (25-35) Mean Corpuscular Hemoglobin Concent 33 g/dL (31-37) Red Cell Distribution Width 14.3 % (11.5-14.5) Neutrophils (%) (Auto) 88 % (31-73) Lymphocytes (%) (Auto) 6 % (24-48) Monocytes (%) (Auto) 6 % (0-9) Eosinophils (%) (Auto) 0 % (0-3) Basophils (%) (Auto) 0 % (0-3) Neutrophils # (Auto) 19.8 x10^3/uL (1.8-7.7) Lymphocytes # (Auto) 1.3 x10^3/uL (1.0-4.8) Monocytes # (Auto) 1.4 x10^3/uL (0.0-1.1) Eosinophils # (Auto) 0.0 x10^3/uL (0.0-0.7) Basophils # (Auto) 0.0 x10^3/uL (0.0-0.2) BUN/Creatinine Ratio 11 (6-20) Total Bilirubin 1.3 mg/dL (0.2-1.0) Aspartate Amino Transf (AST/SGOT) 164 U/L (15-37) Alanine Aminotransferase (ALT/SGPT) 169 U/L (14-59) Alkaline Phosphatase 60 U/L (46-116) Total Protein 4.8 g/dL (6.4-8.2) Albumin 2.1 g/dL (3.4-5.0) Albumin/Globulin Ratio 0.8 (1.0-1.7) Lipase 3832 U/L (73-393) Test 07/06/19 09:05 O2 Saturation 95 % (92-99) Arterial Blood pH 7.23 (7.35-7.45) Arterial Blood pCO2 at Patient Temp 26 mmHg (35-46) Arterial Blood pO2 at Patient Temp 77 mmHg (75-108) Arterial Blood HCO3 11 mmol/L (21-28) Arterial Blood Base Excess -15 mmol/L (-3-3) FiO2 35 I have reviewed the following CT scan done yesterday Problem List Problems Medical Problems: (1) Acute pancreatitis Status: Acute (2) Cholelithiasis Status: Acute Assessment/Plan gallstone pancreatitis cholecystitis ARF to have catheter placed for dialysis today no acute surgical recs continue supportive care MARV WYNNE MD Jul 06, 2019 09:25
--- NOTE | 2019-07-06 09:35 | NUR ---
PROCESS IMPROVEMENT ENGINEER placed arterial line in left wrist. Pt cool clammy, lethagic, ABG's obtained, Dr Zarco notified of results and orders received. Jamaal pollard undated.
[2019-07-06] MEDS ORDERED: LIDOCAINE WITH 8.4% SOD BICARB 3 ML DISP.SYRIN. ONE (09:46)
--- NOTE | 2019-07-06 09:50 | PDOC ---
Subjective: Subjective: Abdomen "a little tender," says breathing ok. Objective: Objective: D/w nurse - nephrology to see. Vital Signs: Vital Signs Date Time Temp Pulse Resp B/P (MAP) Pulse Ox O2 Delivery O2 Flow Rate FiO2 07/06/19 09:10 132 122/61 (81) 07/06/19 07:52 98.1 26 95 Room Air 98.1 07/06/19 07:00 2.0 Labs: Laboratory Tests Test 07/05/19 11:48 07/05/19 16:50 07/05/19 18:02 07/05/19 20:30 Glucose (Fingerstick) 231 mg/dL 232 mg/dL White Blood Count 22.7 x10^3/uL Red Blood Count 4.12 x10^6/uL Hemoglobin 13.8 g/dL Hematocrit 42.0 % Mean Corpuscular Volume 102 fL Mean Corpuscular Hemoglobin 34 pg Mean Corpuscular Hemoglobin Concent 33 g/dL Red Cell Distribution Width 13.8 % Platelet Count 212 x10^3/uL Sodium Level 139 mmol/L Potassium Level 6.8 mmol/L Chloride Level 109 mmol/L Carbon Dioxide Level 17 mmol/L Anion Gap 13 Blood Urea Nitrogen 56 mg/dL Creatinine 5.0 mg/dL Estimated GFR (Cockcroft-Gault) 9.2 BUN/Creatinine Ratio 11 Glucose Level 196 mg/dL Calcium Level < 5.0 mg/dL Phosphorus Level 1.2 mg/dL Magnesium Level 1.2 mg/dL Total Bilirubin 1.9 mg/dL Aspartate Amino Transf (AST/SGOT) 214 U/L Alanine Aminotransferase (ALT/SGPT) 263 U/L Alkaline Phosphatase 75 U/L Total Protein 5.6 g/dL Albumin 2.8 g/dL Albumin/Globulin Ratio 1.0 Test 07/06/19 00:15 07/06/19 00:17 07/06/19 05:45 07/06/19 05:53 White Blood Count 22.9 x10^3/uL 22.6 x10^3/uL Hemoglobin 15.1 g/dL 14.2 g/dL Hematocrit 45.5 % 43.0 % Platelet Count 232 x10^3/uL 207 x10^3/uL Prothrombin Time 16.8 SEC Prothromb Time International Ratio 1.4 Sodium Level 141 mmol/L 143 mmol/L Potassium Level 5.7 mmol/L 5.9 mmol/L Chloride Level 112 mmol/L 114 mmol/L Carbon Dioxide Level 17 mmol/L 14 mmol/L Anion Gap 12 15 Blood Urea Nitrogen 63 mg/dL 64 mg/dL Creatinine 5.5 mg/dL 5.9 mg/dL Estimated GFR (Cockcroft-Gault) 8.2 7.6 Glucose Level 129 mg/dL 167 mg/dL Lactic Acid Level 1.6 mmol/L Calcium Level 5.3 mg/dL < 5.0 mg/dL Phosphorus Level 1.7 mg/dL 1.9 mg/dL Magnesium Level 1.3 mg/dL 2.1 mg/dL Glucose (Fingerstick) 127 mg/dL 174 mg/dL Red Blood Count 4.24 x10^6/uL Mean Corpuscular Volume 101 fL Mean Corpuscular Hemoglobin 34 pg Mean Corpuscular Hemoglobin Concent 33 g/dL Red Cell Distribution Width 14.3 % Neutrophils (%) (Auto) 88 % Lymphocytes (%) (Auto) 6 % Monocytes (%) (Auto) 6 % Eosinophils (%) (Auto) 0 % Basophils (%) (Auto) 0 % Neutrophils # (Auto) 19.8 x10^3/uL Lymphocytes # (Auto) 1.3 x10^3/uL Monocytes # (Auto) 1.4 x10^3/uL Eosinophils # (Auto) 0.0 x10^3/uL Basophils # (Auto) 0.0 x10^3/uL BUN/Creatinine Ratio 11 Total Bilirubin 1.3 mg/dL Aspartate Amino Transf (AST/SGOT) 164 U/L Alanine Aminotransferase (ALT/SGPT) 169 U/L Alkaline Phosphatase 60 U/L Total Protein 4.8 g/dL Albumin 2.1 g/dL Albumin/Globulin Ratio 0.8 Lipase 3832 U/L Test 07/06/19 09:05 O2 Saturation 95 % Arterial Blood pH 7.23 Arterial Blood pCO2 at Patient Temp 26 mmHg Arterial Blood pO2 at Patient Temp 77 mmHg Arterial Blood HCO3 11 mmol/L Arterial Blood Base Excess -15 mmol/L FiO2 35 Imaging: CT A/P IMPRESSION: Progressive inflammatory changes surrounding the pancreas consistent with acute pancreatitis. There is now heterogenous enhancement of the pancreas particularly at the pancreatic neck and tail. This may represent developing necrosis. Repeat follow-up imaging is recommended in 4-6 days to reassess. PE: GEN: ill LUNGS: tachypneic HEART: tachycardic ABD: distended, quiet NEURO/PSYCH: A & O 3 A/P: Gallstone pancreatitis - concern for necrosis on interval CT Leukocytosis, ARF, hypocalcemia -- D/w Dr. Weber - increase PPI to BID. Hemodynamically unstable?: No Is patient in severe pain?: Yes Is NPO status required?: Yes CYNDEE FALCON Jul 06, 2019 09:50
--- NOTE | 2019-07-06 10:12 | CONS ---
DATE OF CONSULTATION: 07/06/2019 REFERRING PHYSICIAN: Dr. Villanueva. REASON FOR CONSULTATION: Antibiotic management for acute pancreatitis. HISTORY OF PRESENT ILLNESS: A 48-year-old female presented to the ER on 07/04/2019 with complaints of abdominal pain, which started 3 days prior to admission with worsening. She also had associated nausea and vomiting. No fevers or chills. White count was elevated at 17.7 with neutrophil percent of 89. Lipase was 38,000, creatinine was 1.2, which later on increased to 5.9. LFTs were elevated with bilirubin going up to 1.9. The patient had a CT of the abdomen and pelvis, which showed prominent pancreatic head with peripancreatic fluid and inflammatory changes around the pancreas consistent with pancreatitis, cholelithiasis, tubular enhancement in the left adnexa reflecting salpingitis and 1.4 cm fibroid, small hiatal hernia. No aneurysm or dissection involving the thoracic or abdominal aorta. The patient also had CTA, which showed some dependent atelectasis, but no consolidation, infiltration, nodules or pleural effusion, bilateral breast implants intact. Ultrasound of the abdomen showed prominent pancreatic head, cholelithiasis with wall thickening. Pelvic ultrasound showed small uterine lesion representing fibroid, small follicles bilaterally in the ovaries, some amount of free fluid in the pelvis, prominent veins in the left adnexa, no fallopian tube abnormality present. The patient had a PICC line placed in the right upper extremity. Renal ultrasound showed sonographically unremarkable kidney. Lind catheter was placed. The patient became hypoxic last night and was transferred to ICU. Repeat x-ray showed hypo-extended examination of the lung with opacities in the lung base, which could be from development of pleural effusion and airspace consolidation. There is also interstitial opacities bilaterally, which could be seen with edema or interstitial infiltrate. The patient had repeat CT done yesterday, which showed progressive inflammatory changes surrounding the pancreas consistent with acute pancreatitis. There is now heterogenous enhancement of the pancreas, particularly at the pancreatic neck and tail; this may represent developing necrosis. Repeat followup imaging recommended in 4-6 days to reassess. Today, creatinine was at 5.9, glucose is high at 167, bicarbonate is down to 14, chloride at 114, potassium of 5.9, bilirubin is 1.3, AST 164, ALT 169, alkaline phosphatase 60, total protein 4.8, lipase is down to 3832, calcium remains low at 5. The patient was started on meropenem last night. ID consult has been requested for antibiotic management. PAST MEDICAL HISTORY: Hypertension, prediabetes, breast augmentation, hyperlipidemia. SOCIAL HISTORY: No smoking. Alcohol, rare. No drugs. CURRENT MEDICATIONS: Meropenem, Zofran, morphine, ketorolac, Levophed low dose. The patient has also been on Zosyn prior to that. ALLERGIES: CODEINE. REVIEW OF SYSTEMS: Denies fevers, chills, nausea, vomiting, abdominal pain, symptoms. Appears tired. PHYSICAL EXAMINATION: VITAL SIGNS: Temperature 98.1 and last night was 100.3, pulse 128, respiratory rate 26, blood pressure 102/62, oxygen saturation 95% on 2 liters. GENERAL: Lethargic, alert, awake, ill-appearing female in ICU bed, cooperative. HEENT: Normocephalic, atraumatic. Mild icterus. No thrush. Oral mucosa dry. NECK: Supple. LUNGS: Decreased breath sounds at the bases. No wheezing. HEART: S1, S2, tachycardia. No murmurs. ABDOMEN: Soft, mildly distended. Mild tenderness on deep palpation upper abdomen. No rebound, no guarding. EXTREMITIES: No edema, no cyanosis. DERMATOLOGIC: Warm and dry. No generalized rash. PICC line in right upper extremity looks okay. CENTRAL NERVOUS SYSTEM: Alert and oriented x 3, grossly nonfocal. PSYCHIATRIC: Cooperative. LABORATORY DATA: WBC 22.6, was 22.7, hemoglobin 14.2, hematocrit 43, platelets 27, neutrophil percent is 88. Sodium 143, potassium 5.9, chloride 114, bicarbonate 14, BUN 64, creatinine 5.9, glucose 167, calcium less than 5, phosphorus 1.9, magnesium 2.1, total bilirubin 1.3, AST 164, ALT 169, alkaline phosphatase 60, total protein 4.8, albumin 2.1, lipase was 38,000. UA negative. INR 1.4. IMAGING: Chest CTA, abdomen and pelvis CTA as above. Pelvic ultrasound as above. Renal ultrasound as above. Repeat abdomen CT as above. Chest x-ray as above. IMPRESSION: 1. Acute pancreatitis with early changes on CT abdomen for developing pancreatic necrosis. 2. Cholelithiasis. 3. Leukocytosis from above 4. Acute kidney injury, Metabolic acidosis,Hyperkalemia, hypocalcemia, 5. hypoalbuminemia. 6. Prediabetes. RECOMMENDATIONS: 1. Continue Merrem. will adjust dose for renal function 2. Renal team has been consulted. 3. Followup labs and cultures. 4. GI and General Surgery is following. 5. Continue supportive care. Discussed with Nursing staff Thank you, Dr. Villanueva, for consulting Infectious Disease to participate in this patient's care. If you have any questions, do not hesitate to contact me. YUNIOR JONES MD DR: ALMAZ/jennifer JOB#: [id number] / [id number] CHRISTOPHER
[2019-07-06] MEDS ORDERED: LIDOCAINE WITH 8.4% SOD BICARB 3 ML DISP.SYRIN. INJ ONE (10:15)
--- NOTE | 2019-07-06 11:04 | RAD ---
PORTABLE CHEST 1V Clinical History: Dialysis catheter Technique: AP view of the chest was obtained at 07/06/2019 10:26 AM. Comparison: July 05, 2019. Findings: There is low lung volumes with crowding of vasculature. The pulmonary vessels appear full and cephalized and is perihilar linear opacities right worse than left. The right PICC is again seen unchanged is been interval placement of a right jugular dual-lumen catheter with its tip in the low SVC near the junction with the atrium. There is hazy opacity lung bases and obscuration diaphragm. Impression: 1. Right jugular line well-positioned. No pneumothorax. 2. Moderate pleural effusions and pulmonary vascular congestion and bilateral infiltrates could be CHF or pneumonia. This appears moderately worse. Electronically signed by: Robbie Toure III, MD (07/06/2019 11:01 AM) [id number]
--- NOTE | 2019-07-06 11:30 | PDOC ---
[employer] PROGRESS NOTE Chief Complaint Chief Complaint Severe Acute pancreatitis Acute kidney failure now requiring dialysis Salpingo--itis Gallstones (Calculus of gallbladder with acute cholecystitis without obstruction) HTN Leukocytosis Hypoxia Uterine fibroid Hypoxia with respiratory failure Intractable pain Intractable nausea History of Present Illness History of Present Illness [id number] Patient seen and examined in the ICU She appears extremely ill critically ill Discussed with RN Getting a chest x-ray now Her sats are only 87% on nasal cannula oxygen Chart reviewed Vitals/I&O Vitals/I&O: Vital Signs Date Time Temp Pulse Resp B/P (MAP) Pulse Ox O2 Delivery O2 Flow Rate FiO2 07/06/19 11:18 101.3 133 36 139/72 (94) 98 Nasal Cannula 3.0 101.3 I & O 07/05/19 07/05/19 07/06/19 15:00 23:00 07:00 Intake Total 2210 ml 1892 ml Output Total 95 ml 75 ml Balance 2115 ml 1817 ml Physical Exam General: moderate distress, Other (acutely ill appearing ) Heart: Other (tachycardic) Lungs: Clear Abdomen: Other (distended, diffusely TTP ) Extremities: No clubbing, No cyanosis, No edema, Normal pulses, No tenderness/swelling Skin: No rashes, No breakdown, No significant lesion Labs Labs: Laboratory Tests Test 07/05/19 11:48 07/05/19 16:50 07/05/19 18:02 07/05/19 20:30 Glucose (Fingerstick) 231 mg/dL (70-99) 232 mg/dL (70-99) White Blood Count 22.7 x10^3/uL (4.0-11.0) Red Blood Count 4.12 x10^6/uL (3.50-5.40) Hemoglobin 13.8 g/dL (12.0-15.5) Hematocrit 42.0 % (36.0-47.0) Mean Corpuscular Volume 102 fL (79-100) Mean Corpuscular Hemoglobin 34 pg (25-35) Mean Corpuscular Hemoglobin Concent 33 g/dL (31-37) Red Cell Distribution Width 13.8 % (11.5-14.5) Platelet Count 212 x10^3/uL (140-400) Sodium Level 139 mmol/L (136-145) Potassium Level 6.8 mmol/L (3.5-5.1) Chloride Level 109 mmol/L (98-107) Carbon Dioxide Level 17 mmol/L (21-32) Anion Gap 13 (6-14) Blood Urea Nitrogen 56 mg/dL (7-20) Creatinine 5.0 mg/dL (0.6-1.0) Estimated GFR (Cockcroft-Gault) 9.2 BUN/Creatinine Ratio 11 (6-20) Glucose Level 196 mg/dL (70-99) Calcium Level < 5.0 mg/dL (8.5-10.1) Phosphorus Level 1.2 mg/dL (2.6-4.7) Magnesium Level 1.2 mg/dL (1.8-2.4) Total Bilirubin 1.9 mg/dL (0.2-1.0) Aspartate Amino Transf (AST/SGOT) 214 U/L (15-37) Alanine Aminotransferase (ALT/SGPT) 263 U/L (14-59) Alkaline Phosphatase 75 U/L (46-116) Total Protein 5.6 g/dL (6.4-8.2) Albumin 2.8 g/dL (3.4-5.0) Albumin/Globulin Ratio 1.0 (1.0-1.7) Test 07/06/19 00:15 07/06/19 00:17 07/06/19 05:45 07/06/19 05:53 White Blood Count 22.9 x10^3/uL (4.0-11.0) 22.6 x10^3/uL (4.0-11.0) Hemoglobin 15.1 g/dL (12.0-15.5) 14.2 g/dL (12.0-15.5) Hematocrit 45.5 % (36.0-47.0) 43.0 % (36.0-47.0) Platelet Count 232 x10^3/uL (140-400) 207 x10^3/uL (140-400) Prothrombin Time 16.8 SEC (11.7-14.0) Prothromb Time International Ratio 1.4 (0.8-1.1) Sodium Level 141 mmol/L (136-145) 143 mmol/L (136-145) Potassium Level 5.7 mmol/L (3.5-5.1) 5.9 mmol/L (3.5-5.1) Chloride Level 112 mmol/L (98-107) 114 mmol/L (98-107) Carbon Dioxide Level 17 mmol/L (21-32) 14 mmol/L (21-32) Anion Gap 12 (6-14) 15 (6-14) Blood Urea Nitrogen 63 mg/dL (7-20) 64 mg/dL (7-20) Creatinine 5.5 mg/dL (0.6-1.0) 5.9 mg/dL (0.6-1.0) Estimated GFR (Cockcroft-Gault) 8.2 7.6 Glucose Level 129 mg/dL (70-99) 167 mg/dL (70-99) Lactic Acid Level 1.6 mmol/L (0.4-2.0) Calcium Level 5.3 mg/dL (8.5-10.1) < 5.0 mg/dL (8.5-10.1) Phosphorus Level 1.7 mg/dL (2.6-4.7) 1.9 mg/dL (2.6-4.7) Magnesium Level 1.3 mg/dL (1.8-2.4) 2.1 mg/dL (1.8-2.4) Glucose (Fingerstick) 127 mg/dL (70-99) 174 mg/dL (70-99) Red Blood Count 4.24 x10^6/uL (3.50-5.40) Mean Corpuscular Volume 101 fL (79-100) Mean Corpuscular Hemoglobin 34 pg (25-35) Mean Corpuscular Hemoglobin Concent 33 g/dL (31-37) Red Cell Distribution Width 14.3 % (11.5-14.5) Neutrophils (%) (Auto) 88 % (31-73) Lymphocytes (%) (Auto) 6 % (24-48) Monocytes (%) (Auto) 6 % (0-9) Eosinophils (%) (Auto) 0 % (0-3) Basophils (%) (Auto) 0 % (0-3) Neutrophils # (Auto) 19.8 x10^3/uL (1.8-7.7) Lymphocytes # (Auto) 1.3 x10^3/uL (1.0-4.8) Monocytes # (Auto) 1.4 x10^3/uL (0.0-1.1) Eosinophils # (Auto) 0.0 x10^3/uL (0.0-0.7) Basophils # (Auto) 0.0 x10^3/uL (0.0-0.2) BUN/Creatinine Ratio 11 (6-20) Total Bilirubin 1.3 mg/dL (0.2-1.0) Aspartate Amino Transf (AST/SGOT) 164 U/L (15-37) Alanine Aminotransferase (ALT/SGPT) 169 U/L (14-59) Alkaline Phosphatase 60 U/L (46-116) Total Protein 4.8 g/dL (6.4-8.2) Albumin 2.1 g/dL (3.4-5.0) Albumin/Globulin Ratio 0.8 (1.0-1.7) Lipase 3832 U/L (73-393) Test 07/06/19 09:05 O2 Saturation 95 % (92-99) Arterial Blood pH 7.23 (7.35-7.45) Arterial Blood pCO2 at Patient Temp 26 mmHg (35-46) Arterial Blood pO2 at Patient Temp 77 mmHg (75-108) Arterial Blood HCO3 11 mmol/L (21-28) Arterial Blood Base Excess -15 mmol/L (-3-3) FiO2 35 Assessment and Plan Assessmemt and Plan Problems Medical Problems: (1) Acute pancreatitis Status: Acute (2) Cholelithiasis Status: Acute Severe Acute pancreatitis Acute kidney failure now requiring dialysis Salpingo--itis Gallstones (Calculus of gallbladder with acute cholecystitis without obstruction) HTN Leukocytosis Hypoxia Uterine fibroid Hypoxia with respiratory failure Intractable pain Intractable nausea Plan ICU monitoring Trend labs especially white count and lipase levels We have consulted GI and general surgery We'll go ahead and consult [facility] as well IV antibiotics IV fluids MA narcotics When necessary anti-medics Home meds if possible DVT prophylaxis Full code She is critically ill Total time 33 minutes Comment Review of Relevant I have reviewed the following items kolby (where applicable) has been applied. Medications: Current Medications Medications (Trade) Dose Ordered Sig/Yvon Route PRN Reason Start Time Stop Time Status Last Admin Dose Admin Hydromorphone HCl (Dilaudid) 1 mg PRN Q3HRS PRN IV SEVERE PAIN 7-10 07/05/19 12:00 07/06/19 06:02 Albumin Human 500 ml @ 125 mls/hr 1X ONCE IV 07/05/19 14:30 07/05/19 18:32 DC 07/05/19 14:33 Norepinephrine Bitartrate 8 mg/ Dextrose 258 ml @ 17.299 mls/ hr CONT PRN IV PER PROTOCOL 07/05/19 15:30 07/05/19 15:24 Sodium Chloride 1,000 ml @ 125 mls/hr Q8H IV 07/05/19 16:00 07/06/19 02:42 DC 07/05/19 21:04 Iohexol (Omnipaque 300 Mg/ml) 60 ml 1X ONCE IV 07/05/19 17:00 07/05/19 17:01 DC 07/05/19 17:20 Meropenem 1 gm/ Sodium Chloride 100 ml @ 200 mls/hr Q8HRS IV 07/05/19 20:00 07/06/19 08:48 DC 07/06/19 05:45 Furosemide (Lasix) 40 mg 1X ONCE IVP 07/05/19 22:30 07/05/19 22:31 DC 07/05/19 22:12 Calcium Chloride 1000 mg/Sodium Chloride 110 ml @ 220 mls/hr 1X ONCE IV 07/05/19 22:30 07/05/19 22:59 DC 07/05/19 22:11 Albuterol Sulfate (Ventolin Neb Soln) 2.5 mg 1X ONCE NEB 07/05/19 22:30 07/05/19 22:31 DC 07/06/19 00:56 Insulin Human Regular (HumuLIN R VIAL) 5 unit 1X ONCE IV 07/05/19 22:30 07/05/19 22:31 DC 07/05/19 22:14 Magnesium Sulfate 50 ml @ 25 mls/hr 1X ONCE IV 07/06/19 03:00 07/06/19 04:59 DC 07/06/19 02:57 Calcium Gluconate 1000 mg/Sodium Chloride 110 ml @ 220 mls/hr 1X ONCE IV 07/06/19 03:00 07/06/19 03:29 DC 07/06/19 02:46 Sodium Chloride 1,000 ml @ 200 mls/hr Q5H IV 07/06/19 03:00 07/06/19 10:21 DC 07/06/19 02:46 Calcium Gluconate 1000 mg/Sodium Chloride 110 ml @ 220 mls/hr 1X ONCE IV 07/06/19 03:30 07/06/19 03:59 DC 07/06/19 03:21 Sodium Bicarbonate 50 meq/Sodium Chloride 1,050 ml @ 200 mls/hr Q5H15M IV 07/06/19 07:30 07/06/19 09:05 Calcium Gluconate 2000 mg/Sodium Chloride 120 ml @ 220 mls/hr 1X ONCE IV 07/06/19 07:30 07/06/19 08:02 DC 07/06/19 09:05 Lidocaine HCl (Buffered Lidocaine 1%) 6 ml 1X ONCE INJ 07/06/19 10:15 07/06/19 10:16 DC 07/06/19 10:26 Hemodynamically unstable?: No Is patient in severe pain?: Yes Is NPO status required?: Yes BEBO KIRBY III DO Jul 06, 2019 11:30
[2019-07-06] MEDS: NOREPINEPHRINE VIAL 8 MG in IV DEXTROSE 5% 250 ML IV PRN (11:34)
[2019-07-06] MEDS ORDERED: IV NORMAL SALINE 1000ML BAG 1,000 ML IV PRN ×2 (12:07)
[2019-07-06] MEDS ORDERED: diphenhydrAMINE 50 MG/ML VIAL IV PRN ×2 (12:15)
[2019-07-06] MEDS ORDERED: DIALYSIS PATIENT. MC PRN (12:15)
--- NOTE | 2019-07-06 12:27 | PDOC2 ---
CONSULT Date of Consult Date of Consult DATE: 07/06/19 TIME: 12:09 Reason for Consult Reason for Consult: JUANA Referring Physician Referring Physician: MIRTA Identification/Chief Complaint Chief Complaint ABD PAIN Source Source: Chart review, Patient History of Present Illness Reason for Visit: THIS IS A 48 YR OLD WITH ABD PAIN. NOTE TO HAVE PANCREATITIS. SHE HAS HAD N/V. IMAGING AND LABS ARE C/W PANCREATITIS. SURGERY AND GI EVALUATION ONGOING. NO CKD HX. BUT PT HAS BEEN HYPOTENSIVE WITH JUANA WITH A CR OF 5.5 AND SEVERE HYPERKALEMIA. UA NEG FOR NEPHRITIS. ALSO HAS MET ACIDOSIS AND ACIDEMIA. ALSO HAS LOW CA OF 5.0. APPROPRIATE RESP COMPENSATION BUT UNABLE TO MAINTAIN A NORMAL PH. NO NEPHROTOXINS AT HOME. SHE DID HAVE CONTRAST EXPOSURE FOR DIAGNOSTIC PURPOSES. NO OTHER HX REPORTED Past Medical History Cardiovascular: HTN Endocrine: Diabetes Past Surgical History Past Surgical History: Other (Breast augmentation) Family History Family History: High Cholestrol, Hypertension Social History No ALCOHOL: rare Drugs: None Current Problem List Problem List Problems Medical Problems: (1) Acute pancreatitis Status: Acute (2) Cholelithiasis Status: Acute Current Medications Current Medications Current Medications Sodium Chloride 1,000 ml @ 1,000 mls/hr Q1H IV Last administered on 07/04/19at 03:00; Start 07/04/19 at 03:00; Stop 07/04/19 at 03:59; Status DC Ondansetron HCl (Zofran) 4 mg 1X ONCE IVP Last administered on 07/04/19at 03:27; Start 07/04/19 at 03:00; Stop 07/04/19 at 03:01; Status DC Morphine Sulfate (Morphine Sulfate) 4 mg 1X ONCE IV ; Start 07/04/19 at 03:00; Stop 07/04/19 at 03:01; Status Cancel Ketorolac Tromethamine (Toradol 30mg Vial) 30 mg 1X ONCE IV Last administered on 07/04/19at 02:54; Start 07/04/19 at 03:00; Stop 07/04/19 at 03:01; Status DC Fentanyl Citrate (Fentanyl 2ml Vial) 25 mcg 1X ONCE IVP Last administered on 07/04/19at 03:23; Start 07/04/19 at 03:30; Stop 07/04/19 at 03:31; Status DC Fentanyl Citrate (Fentanyl 2ml Vial) 100 mcg [facility]-MED ONCE .ROUTE ; Start 07/04/19 at 03:18; Stop 07/04/19 at 03:18; Status DC Iohexol (Omnipaque 350 Mg/ml) 90 ml 1X ONCE IV Last administered on 07/04/19at 03:25; Start 07/04/19 at 03:30; Stop 07/04/19 at 03:31; Status DC Info (CONTRAST GIVEN -- Rx MONITORING) 1 each PRN DAILY PRN MC SEE COMMENTS; Start 07/04/19 at 03:30; Stop 07/06/19 at 03:29; Status DC Hydromorphone HCl (Dilaudid) 0.5 mg 1X ONCE IV Last administered on 07/04/19at 03:55; Start 07/04/19 at 04:30; Stop 07/04/19 at 04:32; Status DC Ondansetron HCl (Zofran) 4 mg PRN Q8HRS PRN IV NAUSEA/VOMITING 1ST CHOICE; Start 07/04/19 at 05:00; Stop 07/04/19 at 09:27; Status DC Morphine Sulfate (Morphine Sulfate) 2 mg PRN Q2HR PRN IV SEVERE PAIN 7-10 Last administered on 07/05/19at 12:26; Start 07/04/19 at 05:00; Stop 07/05/19 at 14:15; Status DC Sodium Chloride 1,000 ml @ 125 mls/hr Q8H IV Last administered on 07/04/19at 20:56; Start 07/04/19 at 05:00; Stop 07/05/19 at 04:59; Status DC Hydromorphone HCl (Dilaudid) 0.5 mg PRN Q3HRS PRN IV SEVERE PAIN 7-10 Last administered on 07/05/19at 10:06; Start 07/04/19 at 05:00; Stop 07/05/19 at 12:01; Status DC Piperacillin Sod/ Tazobactam Sod 4.5 gm/Sodium Chloride 100 ml @ 200 mls/hr 1X ONCE IV Last administered on 07/04/19at 05:44; Start 07/04/19 at 06:00; Stop 07/04/19 at 06:29; Status DC Ondansetron HCl (Zofran) 4 mg PRN Q4HRS PRN IV NAUSEA/VOMITING 1ST CHOICE Last administered on 07/05/19at 22:51; Start 07/04/19 at 09:30 Insulin Human Lispro (HumaLOG) 0-9 UNITS Q6HRS SQ Last administered on 07/06/19at 11:42; Start 07/04/19 at 09:30 Dextrose (Dextrose 50%-Water Syringe) 12.5 gm PRN Q15MIN PRN IV SEE COMMENTS; Start 07/04/19 at 09:30 Pantoprazole Sodium (PROTONIX VIAL for IV PUSH) 40 mg DAILYAC IVP Last adminis tered on 07/06/19at 09:05; Start 07/04/19 at 11:30 Prochlorperazine Edisylate (Compazine) 10 mg PRN Q6HRS PRN IV NAUSEA/VOMITING, 2nd CHOICE Last administered on 07/05/19at 00:42; Start 07/04/19 at 17:45 Atenolol (Tenormin) 100 mg DAILY PO ; Start 07/05/19 at 09:00; Stop 07/04/19 at 20:08; Status DC Metoprolol Tartrate (Lopressor Vial) 2.5 mg Q6HRS IVP Last administered on 07/05/19at 05:51; Start 07/04/19 at 20:15; Stop 07/05/19 at 10:02; Status DC Metoprolol Tartrate (Lopressor Vial) 5 mg Q6HRS IVP Last administered on 07/06/19at 05:46; Start 07/05/19 at 10:15 Hydromorphone HCl (Dilaudid) 1 mg PRN Q3HRS PRN IV SEVERE PAIN 7-10 Last administered on 07/06/19at 11:33; Start 07/05/19 at 12:00 Lidocaine HCl (Buffered Lidocaine 1%) 3 ml STK-MED ONCE .ROUTE ; Start 07/05/19 at 12:55; Stop 07/05/19 at 12:56; Status DC Albumin Human 500 ml @ 125 mls/hr 1X ONCE IV Last administered on 07/05/19at 14:33; Start 07/05/19 at 14:30; Stop 07/05/19 at 18:32; Status DC Norepinephrine Bitartrate 8 mg/ Dextrose 258 ml @ 17.299 mls/ hr CONT PRN IV PER PROTOCOL Last administered on 07/06/19at 11:34; Start 07/05/19 at 15:30 Sodium Chloride 1,000 ml @ 125 mls/hr Q8H IV Last administered on 07/05/19at 21:04; Start 07/05/19 at 16:00; Stop 07/06/19 at 02:42; Status DC Albumin Human 500 ml @ 125 mls/hr PRN BID PRN IV After every 2L NSS & BP < 90mm; Start 07/05/19 at 16:00 Iohexol (Omnipaque 300 Mg/ml) 60 ml 1X ONCE IV Last administered on 07/05/19at 17:20; Start 07/05/19 at 17:00; Stop 07/05/19 at 17:01; Status DC Info (CONTRAST GIVEN -- Rx MONITORING) 1 each PRN DAILY PRN MC SEE COMMENTS; Start 07/05/19 at 17:00; Stop 07/07/19 at 16:59 Meropenem 1 gm/ Sodium Chloride 100 ml @ 200 mls/hr Q8HRS IV Last administered on 07/06/19at 05:45; Start 07/05/19 at 20:00; Stop 07/06/19 at 08:48; Status DC Furosemide (Lasix) 40 mg 1X ONCE IVP Last administered on 07/05/19at 22:12; Start 07/05/19 at 22:30; Stop 07/05/19 at 22:31; Status DC Calcium Chloride 1000 mg/Sodium Chloride 110 ml @ 220 mls/hr 1X ONCE IV Last administered on 07/05/19at 22:11; Start 07/05/19 at 22:30; Stop 07/05/19 at 22:59; Status DC Albuterol Sulfate (Ventolin Neb Soln) 2.5 mg 1X ONCE NEB Last administered on 07/06/19at 00:56; Start 07/05/19 at 22:30; Stop 07/05/19 at 22:31; Status DC Insulin Human Regular (HumuLIN R VIAL) 5 unit 1X ONCE IV Last administered on 07/05/19at 22:14; Start 07/05/19 at 22:30; Stop 07/05/19 at 22:31; Status DC Magnesium Sulfate 50 ml @ 25 mls/hr 1X ONCE IV Last administered on 07/06/19at 02:57; Start 07/06/19 at 03:00; Stop 07/06/19 at 04:59; Status DC Calcium Gluconate 1000 mg/Sodium Chloride 110 ml @ 220 mls/hr 1X ONCE IV Last administered on 07/06/19at 02:46; Start 07/06/19 at 03:00; Stop 07/06/19 at 03:29; Status DC Sodium Chloride 1,000 ml @ 200 mls/hr Q5H IV Last administered on 07/06/19at 02:46; Start 07/06/19 at 03:00; Stop 07/06/19 at 10:21; Status DC Calcium Gluconate 1000 mg/Sodium Chloride 110 ml @ 220 mls/hr 1X ONCE IV Last administered on 07/06/19at 03:21; Start 07/06/19 at 03:30; Stop 07/06/19 at 03:59; Status DC Sodium Bicarbonate 50 meq/Sodium Chloride 1,050 ml @ 200 mls/hr Q5H15M IV Last administered on 07/06/19at 09:05; Start 07/06/19 at 07:30 Calcium Gluconate 2000 mg/Sodium Chloride 120 ml @ 220 mls/hr 1X ONCE IV Last administered on 07/06/19at 09:05; Start 07/06/19 at 07:30; Stop 07/06/19 at 08:02; Status DC Lidocaine HCl (Xylocaine-Mpf 1% 2ml Vial) 2 ml STK-MED ONCE .ROUTE ; Start 07/06/19 at 08:47; Stop 07/06/19 at 08:47; Status DC Meropenem 500 mg/ Sodium Chloride 50 ml @ 100 mls/hr Q12HR IV ; Start 07/06/19 at 18:00 Lidocaine HCl (Buffered Lidocaine 1%) 3 ml STK-MED ONCE .ROUTE ; Start 07/06/19 at 09:46; Stop 07/06/19 at 09:46; Status DC Lidocaine HCl (Buffered Lidocaine 1%) 6 ml 1X ONCE INJ Last administered on 07/06/19at 10:26; Start 07/06/19 at 10:15; Stop 07/06/19 at 10:16; Status DC Info (Tpn Per Pharmacy) 1 each PRN DAILY PRN MC SEE COMMENTS; Start 07/06/19 at 12:00 Active Scripts Active Reported Bisoprolol Fumarate 5 Mg Tablet 10 Mg PO DAILY Allergies Allergies: Coded Allergies: codeine (Verified Allergy, Intermediate, rash, 07/04/19) ROS General: YES: Chills, Fatigue, Appetite PSYCHOLOGICAL ROS: YES: Anxiety Eyes: Yes Decreased vision ALLERGY AND IMMUNOLOGY: YES: Seasonal Allergies Respiratory: YES: Cough, Shortness of breath Gastrointestinal: Yes Nausea, Yes Vomiting, Yes Abdominal Pain Genitourinary: YES Other (DECREASING UO) Musculoskeletal: Yes Joint Pain, Yes Muscular Weakness Neurological: Yes Weakness Skin: Yes Dry Skin Physical Exam General: Alert, Cooperative, moderate distress HEENT: Atraumatic, PERRLA Lungs: Clear to auscultation, Other ([place]) Heart: Regular rate Abdomen: Other (HYPOACTIVE WITH REMOTE BS) Extremities: No edema, Other (SOME CLUBBING ) Neuro: Normal speech Psych/Mental Status: Other (ANXIOUS) MUSCULOSKELETAL: No deformity, No swelling Vitals VITALS Vital Signs Date Time Temp Pulse Resp B/P (MAP) Pulse Ox O2 Delivery O2 Flow Rate FiO2 07/06/19 11:44 128/65 (86) 07/06/19 11:43 133 35 98 Nasal Cannula 3.0 07/06/19 11:18 101.3 101.3 Labs Labs Laboratory Tests Test 07/04/19 12:42 07/04/19 17:45 07/05/19 00:40 07/05/19 03:27 Glucose (Fingerstick) 224 mg/dL (70-99) 209 mg/dL (70-99) 212 mg/dL (70-99) 196 mg/dL (70-99) Test 07/05/19 05:44 07/05/19 11:48 07/05/19 16:50 07/05/19 18:02 Glucose (Fingerstick) 186 mg/dL (70-99) 231 mg/dL (70-99) 232 mg/dL (70-99) White Blood Count 22.7 x10^3/uL (4.0-11.0) Red Blood Count 4.12 x10^6/uL (3.50-5.40) Hemoglobin 13.8 g/dL (12.0-15.5) Hematocrit 42.0 % (36.0-47.0) Mean Corpuscular Volume 102 fL (79-100) Mean Corpuscular Hemoglobin 34 pg (25-35) Mean Corpuscular Hemoglobin Concent 33 g/dL (31-37) Red Cell Distribution Width 13.8 % (11.5-14.5) Platelet Count 212 x10^3/uL (140-400) Test 07/05/19 20:30 07/06/19 00:15 07/06/19 00:17 07/06/19 05:45 Sodium Level 139 mmol/L (136-145) 141 mmol/L (136-145) 143 mmol/L (136-145) Potassium Level 6.8 mmol/L (3.5-5.1) 5.7 mmol/L (3.5-5.1) 5.9 mmol/L (3.5-5.1) Chloride Level 109 mmol/L (98-107) 112 mmol/L (98-107) 114 mmol/L (98-107) Carbon Dioxide Level 17 mmol/L (21-32) 17 mmol/L (21-32) 14 mmol/L (21-32) Anion Gap 13 (6-14) 12 (6-14) 15 (6-14) Blood Urea Nitrogen 56 mg/dL (7-20) 63 mg/dL (7-20) 64 mg/dL (7-20) Creatinine 5.0 mg/dL (0.6-1.0) 5.5 mg/dL (0.6-1.0) 5.9 mg/dL (0.6-1.0) Estimated GFR (Cockcroft-Gault) 9.2 8.2 7.6 BUN/Creatinine Ratio 11 (6-20) 11 (6-20) Glucose Level 196 mg/dL (70-99) 129 mg/dL (70-99) 167 mg/dL (70-99) Calcium Level < 5.0 mg/dL (8.5-10.1) 5.3 mg/dL (8.5-10.1) < 5.0 mg/dL (8.5-10.1) Phosphorus Level 1.2 mg/dL (2.6-4.7) 1.7 mg/dL (2.6-4.7) 1.9 mg/dL (2.6-4.7) Magnesium Level 1.2 mg/dL (1.8-2.4) 1.3 mg/dL (1.8-2.4) 2.1 mg/dL (1.8-2.4) Total Bilirubin 1.9 mg/dL (0.2-1.0) 1.3 mg/dL (0.2-1.0) Aspartate Amino Transf (AST/SGOT) 214 U/L (15-37) 164 U/L (15-37) Alanine Aminotransferase (ALT/SGPT) 263 U/L (14-59) 169 U/L (14-59) Alkaline Phosphatase 75 U/L (46-116) 60 U/L (46-116) Total Protein 5.6 g/dL (6.4-8.2) 4.8 g/dL (6.4-8.2) Albumin 2.8 g/dL (3.4-5.0) 2.1 g/dL (3.4-5.0) Albumin/Globulin Ratio 1.0 (1.0-1.7) 0.8 (1.0-1.7) White Blood Count 22.9 x10^3/uL (4.0-11.0) 22.6 x10^3/uL (4.0-11.0) Hemoglobin 15.1 g/dL (12.0-15.5) 14.2 g/dL (12.0-15.5) Hematocrit 45.5 % (36.0-47.0) 43.0 % (36.0-47.0) Platelet Count 232 x10^3/uL (140-400) 207 x10^3/uL (140-400) Prothrombin Time 16.8 SEC (11.7-14.0) Prothromb Time International Ratio 1.4 (0.8-1.1) Lactic Acid Level 1.6 mmol/L (0.4-2.0) Glucose (Fingerstick) 127 mg/dL (70-99) Red Blood Count 4.24 x10^6/uL (3.50-5.40) Mean Corpuscular Volume 101 fL (79-100) Mean Corpuscular Hemoglobin 34 pg (25-35) Mean Corpuscular Hemoglobin Concent 33 g/dL (31-37) Red Cell Distribution Width 14.3 % (11.5-14.5) Neutrophils (%) (Auto) 88 % (31-73) Lymphocytes (%) (Auto) 6 % (24-48) Monocytes (%) (Auto) 6 % (0-9) Eosinophils (%) (Auto) 0 % (0-3) Basophils (%) (Auto) 0 % (0-3) Neutrophils # (Auto) 19.8 x10^3/uL (1.8-7.7) Lymphocytes # (Auto) 1.3 x10^3/uL (1.0-4.8) Monocytes # (Auto) 1.4 x10^3/uL (0.0-1.1) Eosinophils # (Auto) 0.0 x10^3/uL (0.0-0.7) Basophils # (Auto) 0.0 x10^3/uL (0.0-0.2) Lipase 3832 U/L (73-393) Test 07/06/19 05:53 07/06/19 09:05 07/06/19 11:38 Glucose (Fingerstick) 174 mg/dL (70-99) 174 mg/dL (70-99) O2 Saturation 95 % (92-99) Arterial Blood pH 7.23 (7.35-7.45) Arterial Blood pCO2 at Patient Temp 26 mmHg (35-46) Arterial Blood pO2 at Patient Temp 77 mmHg (75-108) Arterial Blood HCO3 11 mmol/L (21-28) Arterial Blood Base Excess -15 mmol/L (-3-3) FiO2 35 Laboratory Tests Test 07/05/19 16:50 07/05/19 18:02 07/05/19 20:30 07/06/19 00:15 White Blood Count 22.7 x10^3/uL (4.0-11.0) 22.9 x10^3/uL (4.0-11.0) Red Blood Count 4.12 x10^6/uL (3.50-5.40) Hemoglobin 13.8 g/dL (12.0-15.5) 15.1 g/dL (12.0-15.5) Hematocrit 42.0 % (36.0-47.0) 45.5 % (36.0-47.0) Mean Corpuscular Volume 102 fL (79-100) Mean Corpuscular Hemoglobin 34 pg (25-35) Mean Corpuscular Hemoglobin Concent 33 g/dL (31-37) Red Cell Distribution Width 13.8 % (11.5-14.5) Platelet Count 212 x10^3/uL (140-400) 232 x10^3/uL (140-400) Glucose (Fingerstick) 232 mg/dL (70-99) Sodium Level 139 mmol/L (136-145) 141 mmol/L (136-145) Potassium Level 6.8 mmol/L (3.5-5.1) 5.7 mmol/L (3.5-5.1) Chloride Level 109 mmol/L (98-107) 112 mmol/L (98-107) Carbon Dioxide Level 17 mmol/L (21-32) 17 mmol/L (21-32) Anion Gap 13 (6-14) 12 (6-14) Blood Urea Nitrogen 56 mg/dL (7-20) 63 mg/dL (7-20) Creatinine 5.0 mg/dL (0.6-1.0) 5.5 mg/dL (0.6-1.0) Estimated GFR (Cockcroft-Gault) 9.2 8.2 BUN/Creatinine Ratio 11 (6-20) Glucose Level 196 mg/dL (70-99) 129 mg/dL (70-99) Calcium Level < 5.0 mg/dL (8.5-10.1) 5.3 mg/dL (8.5-10.1) Phosphorus Level 1.2 mg/dL (2.6-4.7) 1.7 mg/dL (2.6-4.7) Magnesium Level 1.2 mg/dL (1.8-2.4) 1.3 mg/dL (1.8-2.4) Total Bilirubin 1.9 mg/dL (0.2-1.0) Aspartate Amino Transf (AST/SGOT) 214 U/L (15-37) Alanine Aminotransferase (ALT/SGPT) 263 U/L (14-59) Alkaline Phosphatase 75 U/L (46-116) Total Protein 5.6 g/dL (6.4-8.2) Albumin 2.8 g/dL (3.4-5.0) Albumin/Globulin Ratio 1.0 (1.0-1.7) Prothrombin Time 16.8 SEC (11.7-14.0) Prothromb Time International Ratio 1.4 (0.8-1.1) Lactic Acid Level 1.6 mmol/L (0.4-2.0) Test 07/06/19 00:17 07/06/19 05:45 07/06/19 05:53 07/06/19 09:05 Glucose (Fingerstick) 127 mg/dL (70-99) 174 mg/dL (70-99) White Blood Count 22.6 x10^3/uL (4.0-11.0) Red Blood Count 4.24 x10^6/uL (3.50-5.40) Hemoglobin 14.2 g/dL (12.0-15.5) Hematocrit 43.0 % (36.0-47.0) Mean Corpuscular Volume 101 fL (79-100) Mean Corpuscular Hemoglobin 34 pg (25-35) Mean Corpuscular Hemoglobin Concent 33 g/dL (31-37) Red Cell Distribution Width 14.3 % (11.5-14.5) Platelet Count 207 x10^3/uL (140-400) Neutrophils (%) (Auto) 88 % (31-73) Lymphocytes (%) (Auto) 6 % (24-48) Monocytes (%) (Auto) 6 % (0-9) Eosinophils (%) (Auto) 0 % (0-3) Basophils (%) (Auto) 0 % (0-3) Neutrophils # (Auto) 19.8 x10^3/uL (1.8-7.7) Lymphocytes # (Auto) 1.3 x10^3/uL (1.0-4.8) Monocytes # (Auto) 1.4 x10^3/uL (0.0-1.1) Eosinophils # (Auto) 0.0 x10^3/uL (0.0-0.7) Basophils # (Auto) 0.0 x10^3/uL (0.0-0.2) Sodium Level 143 mmol/L (136-145) Potassium Level 5.9 mmol/L (3.5-5.1) Chloride Level 114 mmol/L (98-107) Carbon Dioxide Level 14 mmol/L (21-32) Anion Gap 15 (6-14) Blood Urea Nitrogen 64 mg/dL (7-20) Creatinine 5.9 mg/dL (0.6-1.0) Estimated GFR (Cockcroft-Gault) 7.6 BUN/Creatinine Ratio 11 (6-20) Glucose Level 167 mg/dL (70-99) Calcium Level < 5.0 mg/dL (8.5-10.1) Phosphorus Level 1.9 mg/dL (2.6-4.7) Magnesium Level 2.1 mg/dL (1.8-2.4) Total Bilirubin 1.3 mg/dL (0.2-1.0) Aspartate Amino Transf (AST/SGOT) 164 U/L (15-37) Alanine Aminotransferase (ALT/SGPT) 169 U/L (14-59) Alkaline Phosphatase 60 U/L (46-116) Total Protein 4.8 g/dL (6.4-8.2) Albumin 2.1 g/dL (3.4-5.0) Albumin/Globulin Ratio 0.8 (1.0-1.7) Lipase 3832 U/L (73-393) O2 Saturation 95 % (92-99) Arterial Blood pH 7.23 (7.35-7.45) Arterial Blood pCO2 at Patient Temp 26 mmHg (35-46) Arterial Blood pO2 at Patient Temp 77 mmHg (75-108) Arterial Blood HCO3 11 mmol/L (21-28) Arterial Blood Base Excess -15 mmol/L (-3-3) FiO2 35 Test 07/06/19 11:38 Glucose (Fingerstick) 174 mg/dL (70-99) Assessment/Plan Assessment/Plan IMP [id number] HYPERKALEMIA ACIDOSIS AND ACIDEMIA ACUTE REPS FAILURE ACUTE PANCREATITIS HYPOALBUMINEMIA HYPOCALCEMIA PLAN TPN CORRECT CA NEEDED CHECK IONIZED CA WILL NEED EMERGENT HD TO CORRECT ACID BASE AND LYTES WILL HAVE IR PLACE TEMP HD LINE HD TODAY WILL USE HIGH HCO3 DIALYSATE WILL ALSO START TPN CONT HCO3 GTT WILL FOLLOW DONI GARCIA MD Jul 06, 2019 12:26
[2019-07-06] MEDS ORDERED: TPN PER PHARMACY MC PRN (12:30)
[2019-07-06] MEDS: TPN PER PHARMACY MC PRN (12:43)
--- NOTE | 2019-07-06 12:44 | NUR ---
Pharmacy TPN Dosing Note S: SCOTT AVILA is a 48 year old F Currently receiving Central Continuous TPN started 07/06/19 B:Pertinent PMH: Necrotizing pancreatitis Height: 5 feet, 8 inches Weight: 77.019551 kg Current diet: NPO LABS: Sodium: 143 Potassium: 5.9 Chloride: 114 Calcium: 5.0 Corrected Calcium: 6.52 Magnesium: 2.1 CO2: 14 SCr: 5.9 Glucose: 127-174 Albumin: 2.1 AST: 164 ALT: 169 TPN FORMULA: TPN TYPE: Central Continuous AMINO ACIDS: 60 gm DEXTROSE: 195 gm LIPIDS: 20 gm SODIUM CHLORIDE: 90 mEq CALCIUM: 10 mEq MULTIPLE VITAMIN: 10 ml TRACE ELEMENTS: 0.5 ml(s) TPN PLAN: Temp HD catheter placed today and pt will have HD. Begin standard formula on macros per RD. Omit K from TPN due to hyperkalemia. Calcium has been replaced with a total of 5 gm IVPB today. Pt is on a sodium bicarb drip. -BMP, Mg and Phos in the AM. R: Begin TPN as noted above. Will monitor electrolytes, glucose, and tolerance to TPN. MIKAYLA CHU [facility], 07/06/19 [id number]
--- NOTE | 2019-07-06 16:49 | NUR ---
1200 dose of metoprolol held due to pt getting dialysis with pressure in the 90's.
[2019-07-06] MEDS: MEROPENEM 500 MG in IV NORMAL SALINE 50ML 50 ML IV SCH (17:16)
[2019-07-06] MEDS ORDERED: CALCIUM CARBONATE 500 MG TAB.CHEW PO PRN (17:45)
--- NOTE | 2019-07-06 18:01 | PDOC ---
PULMONARY PROGRESS NOTES Vitals Vital Signs Date Time Temp Pulse Resp B/P (MAP) Pulse Ox O2 Delivery O2 Flow Rate FiO2 07/06/19 17:15 30 07/06/19 16:50 123/69 (87) 07/06/19 16:03 Room Air 07/06/19 15:39 124 95 3.0 07/06/19 14:07 99.7 99.7 Lungs: Clear Labs Laboratory Tests Test 07/05/19 00:40 07/05/19 03:27 07/05/19 05:44 07/05/19 11:48 Glucose (Fingerstick) 212 mg/dL (70-99) 196 mg/dL (70-99) 186 mg/dL (70-99) 231 mg/dL (70-99) Test 07/05/19 16:50 07/05/19 18:02 07/05/19 20:30 07/06/19 00:15 White Blood Count 22.7 x10^3/uL (4.0-11.0) 22.9 x10^3/uL (4.0-11.0) Red Blood Count 4.12 x10^6/uL (3.50-5.40) Hemoglobin 13.8 g/dL (12.0-15.5) 15.1 g/dL (12.0-15.5) Hematocrit 42.0 % (36.0-47.0) 45.5 % (36.0-47.0) Mean Corpuscular Volume 102 fL (79-100) Mean Corpuscular Hemoglobin 34 pg (25-35) Mean Corpuscular Hemoglobin Concent 33 g/dL (31-37) Red Cell Distribution Width 13.8 % (11.5-14.5) Platelet Count 212 x10^3/uL (140-400) 232 x10^3/uL (140-400) Glucose (Fingerstick) 232 mg/dL (70-99) Sodium Level 139 mmol/L (136-145) 141 mmol/L (136-145) Potassium Level 6.8 mmol/L (3.5-5.1) 5.7 mmol/L (3.5-5.1) Chloride Level 109 mmol/L (98-107) 112 mmol/L (98-107) Carbon Dioxide Level 17 mmol/L (21-32) 17 mmol/L (21-32) Anion Gap 13 (6-14) 12 (6-14) Blood Urea Nitrogen 56 mg/dL (7-20) 63 mg/dL (7-20) Creatinine 5.0 mg/dL (0.6-1.0) 5.5 mg/dL (0.6-1.0) Estimated GFR (Cockcroft-Gault) 9.2 8.2 BUN/Creatinine Ratio 11 (6-20) Glucose Level 196 mg/dL (70-99) 129 mg/dL (70-99) Calcium Level < 5.0 mg/dL (8.5-10.1) 5.3 mg/dL (8.5-10.1) Phosphorus Level 1.2 mg/dL (2.6-4.7) 1.7 mg/dL (2.6-4.7) Magnesium Level 1.2 mg/dL (1.8-2.4) 1.3 mg/dL (1.8-2.4) Total Bilirubin 1.9 mg/dL (0.2-1.0) Aspartate Amino Transf (AST/SGOT) 214 U/L (15-37) Alanine Aminotransferase (ALT/SGPT) 263 U/L (14-59) Alkaline Phosphatase 75 U/L (46-116) Total Protein 5.6 g/dL (6.4-8.2) Albumin 2.8 g/dL (3.4-5.0) Albumin/Globulin Ratio 1.0 (1.0-1.7) Prothrombin Time 16.8 SEC (11.7-14.0) Prothromb Time International Ratio 1.4 (0.8-1.1) Lactic Acid Level 1.6 mmol/L (0.4-2.0) Test 07/06/19 00:17 07/06/19 05:45 07/06/19 05:53 07/06/19 09:05 Glucose (Fingerstick) 127 mg/dL (70-99) 174 mg/dL (70-99) White Blood Count 22.6 x10^3/uL (4.0-11.0) Red Blood Count 4.24 x10^6/uL (3.50-5.40) Hemoglobin 14.2 g/dL (12.0-15.5) Hematocrit 43.0 % (36.0-47.0) Mean Corpuscular Volume 101 fL (79-100) Mean Corpuscular Hemoglobin 34 pg (25-35) Mean Corpuscular Hemoglobin Concent 33 g/dL (31-37) Red Cell Distribution Width 14.3 % (11.5-14.5) Platelet Count 207 x10^3/uL (140-400) Neutrophils (%) (Auto) 88 % (31-73) Lymphocytes (%) (Auto) 6 % (24-48) Monocytes (%) (Auto) 6 % (0-9) Eosinophils (%) (Auto) 0 % (0-3) Basophils (%) (Auto) 0 % (0-3) Neutrophils # (Auto) 19.8 x10^3/uL (1.8-7.7) Lymphocytes # (Auto) 1.3 x10^3/uL (1.0-4.8) Monocytes # (Auto) 1.4 x10^3/uL (0.0-1.1) Eosinophils # (Auto) 0.0 x10^3/uL (0.0-0.7) Basophils # (Auto) 0.0 x10^3/uL (0.0-0.2) Sodium Level 143 mmol/L (136-145) Potassium Level 5.9 mmol/L (3.5-5.1) Chloride Level 114 mmol/L (98-107) Carbon Dioxide Level 14 mmol/L (21-32) Anion Gap 15 (6-14) Blood Urea Nitrogen 64 mg/dL (7-20) Creatinine 5.9 mg/dL (0.6-1.0) Estimated GFR (Cockcroft-Gault) 7.6 BUN/Creatinine Ratio 11 (6-20) Glucose Level 167 mg/dL (70-99) Calcium Level < 5.0 mg/dL (8.5-10.1) Phosphorus Level 1.9 mg/dL (2.6-4.7) Magnesium Level 2.1 mg/dL (1.8-2.4) Total Bilirubin 1.3 mg/dL (0.2-1.0) Aspartate Amino Transf (AST/SGOT) 164 U/L (15-37) Alanine Aminotransferase (ALT/SGPT) 169 U/L (14-59) Alkaline Phosphatase 60 U/L (46-116) Total Protein 4.8 g/dL (6.4-8.2) Albumin 2.1 g/dL (3.4-5.0) Albumin/Globulin Ratio 0.8 (1.0-1.7) Lipase 3832 U/L (73-393) Hepatitis B Surface Antigen Nonreactive (Nonreactive) Hepatitis B Core Total Antibody Nonreactive (Nonreactive) O2 Saturation 95 % (92-99) Arterial Blood pH 7.23 (7.35-7.45) Arterial Blood pCO2 at Patient Temp 26 mmHg (35-46) Arterial Blood pO2 at Patient Temp 77 mmHg (75-108) Arterial Blood HCO3 11 mmol/L (21-28) Arterial Blood Base Excess -15 mmol/L (-3-3) FiO2 35 Test 07/06/19 11:38 07/06/19 17:20 07/06/19 17:26 Glucose (Fingerstick) 174 mg/dL (70-99) 99 mg/dL (70-99) Ionized Calcium 0.64 mmol/L (1.13-1.32) Laboratory Tests Test 07/05/19 18:02 07/05/19 20:30 07/06/19 00:15 07/06/19 00:17 Glucose (Fingerstick) 232 mg/dL (70-99) 127 mg/dL (70-99) Sodium Level 139 mmol/L (136-145) 141 mmol/L (136-145) Potassium Level 6.8 mmol/L (3.5-5.1) 5.7 mmol/L (3.5-5.1) Chloride Level 109 mmol/L (98-107) 112 mmol/L (98-107) Carbon Dioxide Level 17 mmol/L (21-32) 17 mmol/L (21-32) Anion Gap 13 (6-14) 12 (6-14) Blood Urea Nitrogen 56 mg/dL (7-20) 63 mg/dL (7-20) Creatinine 5.0 mg/dL (0.6-1.0) 5.5 mg/dL (0.6-1.0) Estimated GFR (Cockcroft-Gault) 9.2 8.2 BUN/Creatinine Ratio 11 (6-20) Glucose Level 196 mg/dL (70-99) 129 mg/dL (70-99) Calcium Level < 5.0 mg/dL (8.5-10.1) 5.3 mg/dL (8.5-10.1) Phosphorus Level 1.2 mg/dL (2.6-4.7) 1.7 mg/dL (2.6-4.7) Magnesium Level 1.2 mg/dL (1.8-2.4) 1.3 mg/dL (1.8-2.4) Total Bilirubin 1.9 mg/dL (0.2-1.0) Aspartate Amino Transf (AST/SGOT) 214 U/L (15-37) Alanine Aminotransferase (ALT/SGPT) 263 U/L (14-59) Alkaline Phosphatase 75 U/L (46-116) Total Protein 5.6 g/dL (6.4-8.2) Albumin 2.8 g/dL (3.4-5.0) Albumin/Globulin Ratio 1.0 (1.0-1.7) White Blood Count 22.9 x10^3/uL (4.0-11.0) Hemoglobin 15.1 g/dL (12.0-15.5) Hematocrit 45.5 % (36.0-47.0) Platelet Count 232 x10^3/uL (140-400) Prothrombin Time 16.8 SEC (11.7-14.0) Prothromb Time International Ratio 1.4 (0.8-1.1) Lactic Acid Level 1.6 mmol/L (0.4-2.0) Test 07/06/19 05:45 07/06/19 05:53 07/06/19 09:05 07/06/19 11:38 White Blood Count 22.6 x10^3/uL (4.0-11.0) Red Blood Count 4.24 x10^6/uL (3.50-5.40) Hemoglobin 14.2 g/dL (12.0-15.5) Hematocrit 43.0 % (36.0-47.0) Mean Corpuscular Volume 101 fL (79-100) Mean Corpuscular Hemoglobin 34 pg (25-35) Mean Corpuscular Hemoglobin Concent 33 g/dL (31-37) Red Cell Distribution Width 14.3 % (11.5-14.5) Platelet Count 207 x10^3/uL (140-400) Neutrophils (%) (Auto) 88 % (31-73) Lymphocytes (%) (Auto) 6 % (24-48) Monocytes (%) (Auto) 6 % (0-9) Eosinophils (%) (Auto) 0 % (0-3) Basophils (%) (Auto) 0 % (0-3) Neutrophils # (Auto) 19.8 x10^3/uL (1.8-7.7) Lymphocytes # (Auto) 1.3 x10^3/uL (1.0-4.8) Monocytes # (Auto) 1.4 x10^3/uL (0.0-1.1) Eosinophils # (Auto) 0.0 x10^3/uL (0.0-0.7) Basophils # (Auto) 0.0 x10^3/uL (0.0-0.2) Sodium Level 143 mmol/L (136-145) Potassium Level 5.9 mmol/L (3.5-5.1) Chloride Level 114 mmol/L (98-107) Carbon Dioxide Level 14 mmol/L (21-32) Anion Gap 15 (6-14) Blood Urea Nitrogen 64 mg/dL (7-20) Creatinine 5.9 mg/dL (0.6-1.0) Estimated GFR (Cockcroft-Gault) 7.6 BUN/Creatinine Ratio 11 (6-20) Glucose Level 167 mg/dL (70-99) Calcium Level < 5.0 mg/dL (8.5-10.1) Phosphorus Level 1.9 mg/dL (2.6-4.7) Magnesium Level 2.1 mg/dL (1.8-2.4) Total Bilirubin 1.3 mg/dL (0.2-1.0) Aspartate Amino Transf (AST/SGOT) 164 U/L (15-37) Alanine Aminotransferase (ALT/SGPT) 169 U/L (14-59) Alkaline Phosphatase 60 U/L (46-116) Total Protein 4.8 g/dL (6.4-8.2) Albumin 2.1 g/dL (3.4-5.0) Albumin/Globulin Ratio 0.8 (1.0-1.7) Lipase 3832 U/L (73-393) Hepatitis B Surface Antigen Nonreactive (Nonreactive) Hepatitis B Core Total Antibody Nonreactive (Nonreactive) Glucose (Fingerstick) 174 mg/dL (70-99) 174 mg/dL (70-99) O2 Saturation 95 % (92-99) Arterial Blood pH 7.23 (7.35-7.45) Arterial Blood pCO2 at Patient Temp 26 mmHg (35-46) Arterial Blood pO2 at Patient Temp 77 mmHg (75-108) Arterial Blood HCO3 11 mmol/L (21-28) Arterial Blood Base Excess -15 mmol/L (-3-3) FiO2 35 Test 07/06/19 17:20 07/06/19 17:26 Ionized Calcium 0.64 mmol/L (1.13-1.32) Glucose (Fingerstick) 99 mg/dL (70-99) Medications Active Scripts Medications Dose Route/Sig Max Daily Dose Days Date Category Bisoprolol Fumarate 5 Mg Tablet 10 Mg PO DAILY 07/04/19 Reported Impression . FULL NOTE DICTATED THANKS WILL FOLLOW HARMEET MOSER MD Jul 06, 2019 18:01
[2019-07-06] MEDS ORDERED: TOTAL PARENTERAL NUTRITION IV SCH ×7 (22:00)
[2019-07-06] MEDS ORDERED: [UNRECOGNIZED DRUG - OTHER] IV SCH ×7 (22:00)
[2019-07-06] MEDS ORDERED: DEXTROSE 70% IV SCH ×7 (22:00)
[2019-07-06] MEDS ORDERED: AMINO ACID IV SCH ×7 (22:00)
[2019-07-06] MEDS ORDERED: TOTAL PARENTERAL NUTRITION 0 ML, AMINO ACID 15% 60 GM, DEXTROSE 70 % IN WATER 195 GM, F... IV SCH ×7 (22:00)
[2019-07-06] MEDS: ONDANSETRON PF 4 MG/2 ML VIAL. IV PRN (23:56)
[2019-07-07] VITALS (26 sets, daily range): BP systolic 78–148; BP diastolic 49–81
--- NOTE | 2019-07-07 00:37 | CONS ---
DATE OF CONSULTATION: 07/06/2019 ATTENDING PHYSICIAN: Dr. Villanueva. REASON FOR CONSULTATION: The patient seen in pulmonary consultation at the request of Dr. Dos Santos for increasing shortness of breath. HISTORY OF PRESENT ILLNESS: The patient is a 48-year-old that presented with abdominal pain, currently diagnosed with gallstone pancreatitis. Over the last 24-48 hours, she is becoming more short of air. She had a dialysis catheter placed today and underwent emergent dialysis for severe metabolic acidosis. Early on today, she had an arterial blood gas revealing a pH of 7.23, paCO2 of 26, and pO2 of 17 with a bicarb of 11. She is currently on a bicarbonate drip. She actually feels better and according to the nursing staff, she looks better than she did earlier today. She is on oxygen supplementation. She has semi fallen asleep during my evaluation. She had a T-max yesterday of 100.3. She has been seen by Dr. Harris from the Surgery Department. There are currently no recommendations for surgery at this time. She did have a chest x-ray, which I personally reviewed. There are bilateral effusions and vascular congestion along with possible infiltrates compatible with pneumonia. She is also being seen by the Infectious Disease Service and is currently on IV Merrem. PAST MEDICAL HISTORY: Otherwise remarkable for hypertension, prediabetes, breast augmentation, and hyperlipidemia. SOCIAL HISTORY: She does not smoke. Denies any illicit drugs. CURRENT MEDICATIONS: List was reviewed. ALLERGIES: CODEINE. REVIEW OF SYSTEMS: As indicated above, otherwise, other systems were negative. PHYSICAL EXAMINATION: GENERAL: The patient appeared to be ill and septic. She was fallen asleep during my evaluation, currently on 2 L. HEENT: Eyes, the sclerae were nonicteric. NECK: Jugular venous distention could not be assessed secondary to body habitus. CHEST: Full expansion. LUNGS: Adequate flow with scattered rhonchi. ABDOMEN: Distended, diffuse pain. EXTREMITIES: No clubbing, no cyanosis. Minimal edema. NEUROLOGICAL: The patient was slightly encephalopathic. A detailed neuro exam was not performed. She did follow commands. LABORATORY STUDIES: White count was elevated. Hemoglobin and hematocrit were noted. Arterial blood gases indicated above. Electrolytes were deranged. Calcium level was low. AST was 164, ALT was 169, these are currently coming down. Albumin was low at admission at 2.8, total bilirubin was 1.9 yesterday and 1.3 today. Lipase was 3832, lipase initially was 38,000. IMPRESSION: 1. Acute hypoxemic respiratory failure secondary to acute pancreatitis, sepsis, abdominal distention, and pneumonia. 2. Gallstone pancreatitis. 3. Severe metabolic acidosis. 4. Acute kidney injury. 5. Acute gallstone pancreatitis. 6. Hypoalbuminemia. 7. Hypocalcemia. PLAN: 1. We will continue support with oxygen. 2. IV antibiotics. 3. Emergent hemodialysis was performed today. The patient is actually doing better. 4. BiPAP. 5. Continue IV sodium bicarbonate. 6. Start TPN. I do appreciate the privilege in sharing in the patient's care. HARMEET BEE MD DR: JENNIFER/jennifer JOB#: [id number] / [id number]
[2019-07-07] MEDS: SODIUM BICARBONATE VIAL 50 MEQ in IV 1/2 NORMAL SALINE 1,000 ML IV SCH ×4 (00:52→17:58)
[2019-07-07 01:21] LABS: ALBUMIN 1.8 g/dL (3.4-5.0); ALBUMIN/GLOBULIN RATIO 0.9 (1.0-1.7); ALK PHOS 57 U/L (46-116); ALT (SGPT) 103 U/L (14-59); ANION GAP 11 (6-14); AST (SGOT) 127 U/L (15-37); CARBON DIOXIDE 25 mmol/L (21-32); CHLORIDE 104 mmol/L (98-107); CREATININE 5.2 mg/dL (0.6-1.0); GFR 8.8; GLUCOSE 223 mg/dL (70-99); MAGNESIUM 1.3 mg/dL (1.8-2.4); PHOSPHORUS 4.4 mg/dL (2.6-4.7); POTASSIUM 3.8 mmol/L (3.5-5.1); SODIUM 140 mmol/L (136-145); TOTAL PROTEIN 3.7 g/dL (6.4-8.2)
[2019-07-07 01:38] LABS: BASE EXCESS ABG -6 mmol/L (-3-3); CORRECTED PCO2 ABG 42 mmHg; CORRECTED PO2 ABG 85 mmHg; HCO3 ABG 20 mmol/L (21-28); SAT O2 ABG 95 % (92-99)
[2019-07-07 01:39] LABS: PCO2 ABG 40 mmHg (35-46); PO2 ABG 79 mmHg (75-108)
[2019-07-07 01:39] LABS: CALCIUM < 5.0 mg/dL (8.5-10.1)
[2019-07-07 01:40] LABS: FIO2 ABG 60
[2019-07-07 01:48] LABS: BLOOD UREA NITROGEN 38 mg/dL (7-20)
[2019-07-07 01:49] LABS: BUN/CREATININE RATIO 7 (6-20)
[2019-07-07] MEDS ORDERED: CALCIUM GLUCONATE 1,000 MG/10 ML VIAL. IVP ONE (02:15)
[2019-07-07] MEDS: METOPROLOL TARTRATE 5 MG/5 ML VIAL. IVP SCH ×3 (02:18→19:00)
[2019-07-07] MEDS: HYDROmorphone 2 MG/ML VIAL IV PRN ×3 (02:44→20:06)
[2019-07-07 06:33] LABS: BASO % 0 % (0-3); EOS % 0 % (0-3); HEMATOCRIT 34.8 % (36.0-47.0); HEMOGLOBIN 11.7 g/dL (12.0-15.5); LYMPH # 1.2 x10^3/uL (1.0-4.8); LYMPH % 7 % (24-48); MEAN CORPUSCULAR HEMOGLOBIN 33 pg (25-35); MEAN CORPUSCULAR HGB CONC 34 g/dL (31-37); MEAN CORPUSCULAR VOLUME 99 fL (79-100); MONO # 0.8 x10^3/uL (0.0-1.1); MONO % 5 % (0-9); NEUT % 88 % (31-73); PLATELET COUNT 162 x10^3/uL (140-400); RED BLOOD COUNT 3.53 x10^6/uL (3.50-5.40); RED CELL DISTRIBUTION WIDTH 13.7 % (11.5-14.5); WHITE BLOOD COUNT 18.1 x10^3/uL (4.0-11.0)
[2019-07-07] MEDS: INSULIN LISPRO 300 UNITS/3 ML VIAL. SQ SCH ×4 (06:35→17:12)
[2019-07-07 06:51] LABS: ALBUMIN 1.5 g/dL (3.4-5.0); ALBUMIN/GLOBULIN RATIO 0.5 (1.0-1.7); ALK PHOS 57 U/L (46-116); ALT (SGPT) 84 U/L (14-59); ANION GAP 13 (6-14); AST (SGOT) 111 U/L (15-37); BLOOD UREA NITROGEN 52 mg/dL (7-20); BUN/CREATININE RATIO 9 (6-20); CARBON DIOXIDE 23 mmol/L (21-32); CHLORIDE 103 mmol/L (98-107); CREATININE 5.7 mg/dL (0.6-1.0); GFR 7.9; GLUCOSE 236 mg/dL (70-99); MAGNESIUM 1.4 mg/dL (1.8-2.4); PHOSPHORUS 4.5 mg/dL (2.6-4.7); POTASSIUM 3.8 mmol/L (3.5-5.1); SODIUM 139 mmol/L (136-145); TOTAL BILIRUBIN 0.7 mg/dL (0.2-1.0); TOTAL PROTEIN 4.3 g/dL (6.4-8.2)
[2019-07-07 07:07] LABS: CALCIUM < 5.0 mg/dL (8.5-10.1)
--- NOTE | 2019-07-07 08:07 | RAD ---
Procedure: Ultrasound-guided placement of right internal jugular central venous catheter07/07/2019 6:04 AM Clinical Indication: need dialysis catheter placed, RENAL FAILURE Discussion: The risks and benefits of the procedure were discussed the patient and/or their patient registration representative. Informed consent was obtained. A timeout procedure was performed. All elements of maximal sterile barrier technique including the use of a cap, mask, sterile gown, sterile gloves, large sterile sheet, appropriate hand hygiene, and 2% chlorhexidine for cutaneous antisepsis (or acceptable alternative antiseptic per current guidelines) were followed for this procedure. The patient was prepped and draped in the usual sterile fashion. Ultrasound interrogation of the right neck revealed patency and compressibility of the right internal jugular vein. A 21-gauge micropuncture was then used to gain access to this vein under ultrasound guidance. A hard copy ultrasound image was recorded. A guidewire was advanced centrally. 5 [place] sheath was placed. Over a wire following dilatation, a temp dialysis catheter was advanced centrally. Catheter was found to flush and aspirate normally. Follow-up chest radiograph demonstrates tip at the cavoatrial junction. Catheter secured in place and a sterile dressing was applied. No immediate complications were identified. Impression: Successful ultrasound-guided placement of right internal jugular temporary dialysis catheter
[2019-07-07] MEDS: CALCIUM CHLORIDE IV SCH (08:26)
[2019-07-07] MEDS: NORMAL SALINE IV SCH (08:26)
[2019-07-07] MEDS ORDERED: IV NORMAL SALINE 1000ML BAG 1,000 ML IV PRN ×2 (08:56)
[2019-07-07] MEDS ORDERED: ALBUMIN HUMAN 25% 200 ML IV PRN (09:00)
[2019-07-07] MEDS ORDERED: DIALYSIS PATIENT. MC PRN ×2 (09:00)
[2019-07-07] MEDS ORDERED: diphenhydrAMINE 50 MG/ML VIAL IV PRN ×2 (09:00)
--- NOTE | 2019-07-07 09:04 | PDOC ---
PULMONARY PROGRESS NOTES Subjective PT ON BIPAP NOW UNDER GOING HD SLEEPY BUT FOLLOW COMMANDS HR ELEVATED SEEMS SINUS Vitals Vital Signs Date Time Temp Pulse Resp B/P (MAP) Pulse Ox O2 Delivery O2 Flow Rate FiO2 07/07/19 08:46 99 BiPAP/CPAP 07/07/19 06:03 31 07/07/19 06:00 125 97/53 (68) 07/07/19 05:53 6.0 07/07/19 04:00 98.8 98.8 ROS: No Chest Pain General: Alert Lungs: Clear Cardiovascular: S1, S2 Abdomen: Other (DISTENDED AND DIFFUSE PAIN) Neuro Exam: Alert Extremities: No Edema Skin: Warm Labs Laboratory Tests Test 07/05/19 11:48 07/05/19 16:50 07/05/19 18:02 07/05/19 20:30 Glucose (Fingerstick) 231 mg/dL (70-99) 232 mg/dL (70-99) White Blood Count 22.7 x10^3/uL (4.0-11.0) Red Blood Count 4.12 x10^6/uL (3.50-5.40) Hemoglobin 13.8 g/dL (12.0-15.5) Hematocrit 42.0 % (36.0-47.0) Mean Corpuscular Volume 102 fL (79-100) Mean Corpuscular Hemoglobin 34 pg (25-35) Mean Corpuscular Hemoglobin Concent 33 g/dL (31-37) Red Cell Distribution Width 13.8 % (11.5-14.5) Platelet Count 212 x10^3/uL (140-400) Sodium Level 139 mmol/L (136-145) Potassium Level 6.8 mmol/L (3.5-5.1) Chloride Level 109 mmol/L (98-107) Carbon Dioxide Level 17 mmol/L (21-32) Anion Gap 13 (6-14) Blood Urea Nitrogen 56 mg/dL (7-20) Creatinine 5.0 mg/dL (0.6-1.0) Estimated GFR (Cockcroft-Gault) 9.2 BUN/Creatinine Ratio 11 (6-20) Glucose Level 196 mg/dL (70-99) Calcium Level < 5.0 mg/dL (8.5-10.1) Phosphorus Level 1.2 mg/dL (2.6-4.7) Magnesium Level 1.2 mg/dL (1.8-2.4) Total Bilirubin 1.9 mg/dL (0.2-1.0) Aspartate Amino Transf (AST/SGOT) 214 U/L (15-37) Alanine Aminotransferase (ALT/SGPT) 263 U/L (14-59) Alkaline Phosphatase 75 U/L (46-116) Total Protein 5.6 g/dL (6.4-8.2) Albumin 2.8 g/dL (3.4-5.0) Albumin/Globulin Ratio 1.0 (1.0-1.7) Test 07/06/19 00:15 07/06/19 00:17 07/06/19 05:45 07/06/19 05:53 White Blood Count 22.9 x10^3/uL (4.0-11.0) 22.6 x10^3/uL (4.0-11.0) Hemoglobin 15.1 g/dL (12.0-15.5) 14.2 g/dL (12.0-15.5) Hematocrit 45.5 % (36.0-47.0) 43.0 % (36.0-47.0) Platelet Count 232 x10^3/uL (140-400) 207 x10^3/uL (140-400) Prothrombin Time 16.8 SEC (11.7-14.0) Prothromb Time International Ratio 1.4 (0.8-1.1) Sodium Level 141 mmol/L (136-145) 143 mmol/L (136-145) Potassium Level 5.7 mmol/L (3.5-5.1) 5.9 mmol/L (3.5-5.1) Chloride Level 112 mmol/L (98-107) 114 mmol/L (98-107) Carbon Dioxide Level 17 mmol/L (21-32) 14 mmol/L (21-32) Anion Gap 12 (6-14) 15 (6-14) Blood Urea Nitrogen 63 mg/dL (7-20) 64 mg/dL (7-20) Creatinine 5.5 mg/dL (0.6-1.0) 5.9 mg/dL (0.6-1.0) Estimated GFR (Cockcroft-Gault) 8.2 7.6 Glucose Level 129 mg/dL (70-99) 167 mg/dL (70-99) Lactic Acid Level 1.6 mmol/L (0.4-2.0) Calcium Level 5.3 mg/dL (8.5-10.1) < 5.0 mg/dL (8.5-10.1) Phosphorus Level 1.7 mg/dL (2.6-4.7) 1.9 mg/dL (2.6-4.7) Magnesium Level 1.3 mg/dL (1.8-2.4) 2.1 mg/dL (1.8-2.4) Glucose (Fingerstick) 127 mg/dL (70-99) 174 mg/dL (70-99) Red Blood Count 4.24 x10^6/uL (3.50-5.40) Mean Corpuscular Volume 101 fL (79-100) Mean Corpuscular Hemoglobin 34 pg (25-35) Mean Corpuscular Hemoglobin Concent 33 g/dL (31-37) Red Cell Distribution Width 14.3 % (11.5-14.5) Neutrophils (%) (Auto) 88 % (31-73) Lymphocytes (%) (Auto) 6 % (24-48) Monocytes (%) (Auto) 6 % (0-9) Eosinophils (%) (Auto) 0 % (0-3) Basophils (%) (Auto) 0 % (0-3) Neutrophils # (Auto) 19.8 x10^3/uL (1.8-7.7) Lymphocytes # (Auto) 1.3 x10^3/uL (1.0-4.8) Monocytes # (Auto) 1.4 x10^3/uL (0.0-1.1) Eosinophils # (Auto) 0.0 x10^3/uL (0.0-0.7) Basophils # (Auto) 0.0 x10^3/uL (0.0-0.2) BUN/Creatinine Ratio 11 (6-20) Total Bilirubin 1.3 mg/dL (0.2-1.0) Aspartate Amino Transf (AST/SGOT) 164 U/L (15-37) Alanine Aminotransferase (ALT/SGPT) 169 U/L (14-59) Alkaline Phosphatase 60 U/L (46-116) Total Protein 4.8 g/dL (6.4-8.2) Albumin 2.1 g/dL (3.4-5.0) Albumin/Globulin Ratio 0.8 (1.0-1.7) Lipase 3832 U/L (73-393) Hepatitis B Surface Antigen Nonreactive (Nonreactive) Hepatitis B Core Total Antibody Nonreactive (Nonreactive) Test 07/06/19 09:05 07/06/19 11:38 07/06/19 17:20 07/06/19 17:26 O2 Saturation 95 % (92-99) Arterial Blood pH 7.23 (7.35-7.45) Arterial Blood pCO2 at Patient Temp 26 mmHg (35-46) Arterial Blood pO2 at Patient Temp 77 mmHg (75-108) Arterial Blood HCO3 11 mmol/L (21-28) Arterial Blood Base Excess -15 mmol/L (-3-3) FiO2 35 Glucose (Fingerstick) 174 mg/dL (70-99) 99 mg/dL (70-99) Ionized Calcium 0.64 mmol/L (1.13-1.32) Test 07/07/19 00:23 07/07/19 00:55 07/07/19 00:58 07/07/19 06:15 O2 Saturation 95 % (92-99) Arterial Blood pH 7.32 (7.35-7.45) Arterial Blood pH (Temp corrected) 7.30 Arterial Blood pCO2 at Patient Temp 40 mmHg (35-46) Arterial Blood pCO2 (Temp correct) 42 mmHg Arterial Blood pO2 at Patient Temp 79 mmHg (75-108) Arterial Blood pO2 (Temp corrected) 85 mmHg Arterial Blood HCO3 20 mmol/L (21-28) Arterial Blood Base Excess -6 mmol/L (-3-3) FiO2 60 Sodium Level 140 mmol/L (136-145) 139 mmol/L (136-145) Potassium Level 3.8 mmol/L (3.5-5.1) 3.8 mmol/L (3.5-5.1) Chloride Level 104 mmol/L (98-107) 103 mmol/L (98-107) Carbon Dioxide Level 25 mmol/L (21-32) 23 mmol/L (21-32) Anion Gap 11 (6-14) 13 (6-14) Blood Urea Nitrogen 38 mg/dL (7-20) 52 mg/dL (7-20) Creatinine 5.2 mg/dL (0.6-1.0) 5.7 mg/dL (0.6-1.0) Estimated GFR (Cockcroft-Gault) 8.8 7.9 BUN/Creatinine Ratio 7 (6-20) 9 (6-20) Glucose Level 223 mg/dL (70-99) 236 mg/dL (70-99) Calcium Level < 5.0 mg/dL (8.5-10.1) < 5.0 mg/dL (8.5-10.1) Phosphorus Level 4.4 mg/dL (2.6-4.7) 4.5 mg/dL (2.6-4.7) Magnesium Level 1.3 mg/dL (1.8-2.4) 1.4 mg/dL (1.8-2.4) Total Bilirubin 1.0 mg/dL (0.2-1.0) 0.7 mg/dL (0.2-1.0) Aspartate Amino Transf (AST/SGOT) 127 U/L (15-37) 111 U/L (15-37) Alanine Aminotransferase (ALT/SGPT) 103 U/L (14-59) 84 U/L (14-59) Alkaline Phosphatase 57 U/L (46-116) 57 U/L (46-116) Total Protein 3.7 g/dL (6.4-8.2) 4.3 g/dL (6.4-8.2) Albumin 1.8 g/dL (3.4-5.0) 1.5 g/dL (3.4-5.0) Albumin/Globulin Ratio 0.9 (1.0-1.7) 0.5 (1.0-1.7) Glucose (Fingerstick) 204 mg/dL (70-99) White Blood Count 18.1 x10^3/uL (4.0-11.0) Red Blood Count 3.53 x10^6/uL (3.50-5.40) Hemoglobin 11.7 g/dL (12.0-15.5) Hematocrit 34.8 % (36.0-47.0) Mean Corpuscular Volume 99 fL (79-100) Mean Corpuscular Hemoglobin 33 pg (25-35) Mean Corpuscular Hemoglobin Concent 34 g/dL (31-37) Red Cell Distribution Width 13.7 % (11.5-14.5) Platelet Count 162 x10^3/uL (140-400) Neutrophils (%) (Auto) 88 % (31-73) Lymphocytes (%) (Auto) 7 % (24-48) Monocytes (%) (Auto) 5 % (0-9) Eosinophils (%) (Auto) 0 % (0-3) Basophils (%) (Auto) 0 % (0-3) Neutrophils # (Auto) 16.0 x10^3/uL (1.8-7.7) Lymphocytes # (Auto) 1.2 x10^3/uL (1.0-4.8) Monocytes # (Auto) 0.8 x10^3/uL (0.0-1.1) Eosinophils # (Auto) 0.0 x10^3/uL (0.0-0.7) Basophils # (Auto) 0.0 x10^3/uL (0.0-0.2) Test 07/07/19 06:18 Glucose (Fingerstick) 201 mg/dL (70-99) Laboratory Tests Test 07/06/19 09:05 07/06/19 11:38 07/06/19 17:20 07/06/19 17:26 O2 Saturation 95 % (92-99) Arterial Blood pH 7.23 (7.35-7.45) Arterial Blood pCO2 at Patient Temp 26 mmHg (35-46) Arterial Blood pO2 at Patient Temp 77 mmHg (75-108) Arterial Blood HCO3 11 mmol/L (21-28) Arterial Blood Base Excess -15 mmol/L (-3-3) FiO2 35 Glucose (Fingerstick) 174 mg/dL (70-99) 99 mg/dL (70-99) Ionized Calcium 0.64 mmol/L (1.13-1.32) Test 07/07/19 00:23 07/07/19 00:55 07/07/19 00:58 07/07/19 06:15 O2 Saturation 95 % (92-99) Arterial Blood pH 7.32 (7.35-7.45) Arterial Blood pH (Temp corrected) 7.30 Arterial Blood pCO2 at Patient Temp 40 mmHg (35-46) Arterial Blood pCO2 (Temp correct) 42 mmHg Arterial Blood pO2 at Patient Temp 79 mmHg (75-108) Arterial Blood pO2 (Temp corrected) 85 mmHg Arterial Blood HCO3 20 mmol/L (21-28) Arterial Blood Base Excess -6 mmol/L (-3-3) FiO2 60 Sodium Level 140 mmol/L (136-145) 139 mmol/L (136-145) Potassium Level 3.8 mmol/L (3.5-5.1) 3.8 mmol/L (3.5-5.1) Chloride Level 104 mmol/L (98-107) 103 mmol/L (98-107) Carbon Dioxide Level 25 mmol/L (21-32) 23 mmol/L (21-32) Anion Gap 11 (6-14) 13 (6-14) Blood Urea Nitrogen 38 mg/dL (7-20) 52 mg/dL (7-20) Creatinine 5.2 mg/dL (0.6-1.0) 5.7 mg/dL (0.6-1.0) Estimated GFR (Cockcroft-Gault) 8.8 7.9 BUN/Creatinine Ratio 7 (6-20) 9 (6-20) Glucose Level 223 mg/dL (70-99) 236 mg/dL (70-99) Calcium Level < 5.0 mg/dL (8.5-10.1) < 5.0 mg/dL (8.5-10.1) Phosphorus Level 4.4 mg/dL (2.6-4.7) 4.5 mg/dL (2.6-4.7) Magnesium Level 1.3 mg/dL (1.8-2.4) 1.4 mg/dL (1.8-2.4) Total Bilirubin 1.0 mg/dL (0.2-1.0) 0.7 mg/dL (0.2-1.0) Aspartate Amino Transf (AST/SGOT) 127 U/L (15-37) 111 U/L (15-37) Alanine Aminotransferase (ALT/SGPT) 103 U/L (14-59) 84 U/L (14-59) Alkaline Phosphatase 57 U/L (46-116) 57 U/L (46-116) Total Protein 3.7 g/dL (6.4-8.2) 4.3 g/dL (6.4-8.2) Albumin 1.8 g/dL (3.4-5.0) 1.5 g/dL (3.4-5.0) Albumin/Globulin Ratio 0.9 (1.0-1.7) 0.5 (1.0-1.7) Glucose (Fingerstick) 204 mg/dL (70-99) White Blood Count 18.1 x10^3/uL (4.0-11.0) Red Blood Count 3.53 x10^6/uL (3.50-5.40) Hemoglobin 11.7 g/dL (12.0-15.5) Hematocrit 34.8 % (36.0-47.0) Mean Corpuscular Volume 99 fL (79-100) Mean Corpuscular Hemoglobin 33 pg (25-35) Mean Corpuscular Hemoglobin Concent 34 g/dL (31-37) Red Cell Distribution Width 13.7 % (11.5-14.5) Platelet Count 162 x10^3/uL (140-400) Neutrophils (%) (Auto) 88 % (31-73) Lymphocytes (%) (Auto) 7 % (24-48) Monocytes (%) (Auto) 5 % (0-9) Eosinophils (%) (Auto) 0 % (0-3) Basophils (%) (Auto) 0 % (0-3) Neutrophils # (Auto) 16.0 x10^3/uL (1.8-7.7) Lymphocytes # (Auto) 1.2 x10^3/uL (1.0-4.8) Monocytes # (Auto) 0.8 x10^3/uL (0.0-1.1) Eosinophils # (Auto) 0.0 x10^3/uL (0.0-0.7) Basophils # (Auto) 0.0 x10^3/uL (0.0-0.2) Test 07/07/19 06:18 Glucose (Fingerstick) 201 mg/dL (70-99) Medications Active Scripts Medications Dose Route/Sig Max Daily Dose Days Date Category Bisoprolol Fumarate 5 Mg Tablet 10 Mg PO DAILY 07/04/19 Reported Impression . IMPRESSION: 1. Acute hypoxemic respiratory failure secondary to acute pancreatitis, sepsis, abdominal distention, and pneumonia. 2. Gallstone pancreatitis. 3. Severe metabolic acidosis. 4. Acute kidney injury. 5. Acute gallstone pancreatitis. 6. Hypoalbuminemia. 7. Hypocalcemia. Plan . WILL CONTINUE BIPAP D/W WITH DR GARCIA I THINK EVENTUALLY SHE WILL DECLINE AND BE INTUBATE CXR NO CHANGE HD TPN FOLLOW SURGERY INPUT HARMEET BEE MD Jul 07, 2019 09:04
--- NOTE | 2019-07-07 09:14 | PDOC ---
Infectious Disease Note Subjective: Subjective pt c/o sob on bipap denies any fever abdo pain is under control undergoing dialysis off pressors d/w rn Vital Signs: Vital Signs Vital Signs Date Time Temp Pulse Resp B/P (MAP) Pulse Ox O2 Delivery O2 Flow Rate FiO2 07/07/19 08:46 99 BiPAP/CPAP 07/07/19 06:03 31 07/07/19 06:00 125 97/53 (68) 07/07/19 05:53 6.0 07/07/19 04:00 98.8 98.8 Physical Exam: PHYSICAL EXAM GENERAL: pt on bipap, Lethargic, alert, awake, ill-appearing female in ICU bed, cooperative. HEENT: Normocephalic, atraumatic. Mild icterus. No thrush. Oral mucosa dry. NECK: Supple. Temp HDC cath in place LUNGS: Decreased breath sounds at the bases. No wheezing. HEART: S1, S2, tachycardia. No murmurs. ABDOMEN: Soft, mildly distended. Mild tenderness on deep palpation upper abdomen. No rebound, no guarding. EXTREMITIES: + edema, no cyanosis. DERMATOLOGIC: Warm and dry. No generalized rash. PICC line in right upper extremity looks okay. CENTRAL NERVOUS SYSTEM: Alert and oriented x 3, grossly nonfocal. PSYCHIATRIC: Cooperative. Medications: Inpatient Meds: Current Medications Medications (Trade) Dose Ordered Sig/Yvon Start Time Stop Time Status Last Admin Dose Admin Albumin Human 200 ml @ 200 mls/hr 1X PRN PRN 07/07/19 09:00 07/07/19 14:59 Albuterol Sulfate (Ventolin Neb Soln) 2.5 mg 1X ONCE 07/05/19 22:30 07/05/19 22:31 DC 07/06/19 00:56 2.5 MG Atenolol (Tenormin) 100 mg DAILY 07/05/19 09:00 07/04/19 20:08 DC Calcium Carbonate/ Glycine (Tums) 500 mg PRN [id number] PRN 07/06/19 17:45 Calcium Chloride 1000 mg/Sodium Chloride 110 ml @ 220 mls/hr 1X ONCE 07/05/19 22:30 07/05/19 22:59 DC 07/05/19 22:11 220 MLS/HR Calcium Chloride 3000 mg/Sodium Chloride 1,030 ml @ 50 mls/hr [id number] 07/07/19 08:00 07/07/19 08:26 50 MLS/HR Calcium Gluconate (Calcium Gluconate) 2,000 mg 1X ONCE 07/07/19 02:15 07/07/19 02:16 DC 07/07/19 02:19 2,000 MG Calcium Gluconate 1000 mg/Sodium Chloride 110 ml @ 220 mls/hr 1X ONCE 07/06/19 03:30 07/06/19 03:59 DC 07/06/19 03:21 220 MLS/HR Calcium Gluconate 2000 mg/Sodium Chloride 120 ml @ 220 mls/hr 1X ONCE 07/06/19 07:30 07/06/19 08:02 DC 07/06/19 09:05 220 MLS/HR Dextrose (Dextrose 50%-Water Syringe) 12.5 gm PRN Q15MIN PRN 07/04/19 09:30 Diphenhydramine HCl (Benadryl) 25 mg 1X PRN PRN 07/07/19 09:00 07/08/19 08:59 Fentanyl Citrate (Fentanyl 2ml Vial) 100 mcg STK-MED ONCE 07/04/19 03:18 07/04/19 03:18 DC Furosemide (Lasix) 40 mg 1X ONCE 07/05/19 22:30 07/05/19 22:31 DC 07/05/19 22:12 40 MG Hydromorphone HCl (Dilaudid) 1 mg PRN Q3HRS PRN 07/05/19 12:00 07/07/19 05:53 1 MG Info (CONTRAST GIVEN -- Rx MONITORING) 1 each PRN DAILY PRN 07/05/19 17:00 07/07/19 16:59 Info (PHARMACY MONITORING -- do not chart) 1 each PRN DAILY PRN 07/07/19 09:00 Info (Tpn Per Pharmacy) 1 each PRN DAILY PRN 07/06/19 12:30 UNV Insulin Human Lispro (HumaLOG) 0-9 UNITS Q6HRS 07/04/19 09:30 07/07/19 06:35 5 UNITS Insulin Human Regular (HumuLIN R VIAL) 5 unit 1X ONCE 07/05/19 22:30 07/05/19 22:31 DC 07/05/19 22:14 5 UNIT Iohexol (Omnipaque 300 Mg/ml) 60 ml 1X ONCE 07/05/19 17:00 07/05/19 17:01 DC 07/05/19 17:20 60 ML Iohexol (Omnipaque 350 Mg/ml) 90 ml 1X ONCE 07/04/19 03:30 07/04/19 03:31 DC 07/04/19 03:25 90 ML Ketorolac Tromethamine (Toradol 30mg Vial) 30 mg 1X ONCE 07/04/19 03:00 07/04/19 03:01 DC 07/04/19 02:54 30 MG Lidocaine HCl (Buffered Lidocaine 1%) 6 ml 1X ONCE 07/06/19 10:15 07/06/19 10:16 DC 07/06/19 10:26 4 ML Lidocaine HCl (Xylocaine-Mpf 1% 2ml Vial) 2 ml STK-MED ONCE 07/06/19 08:47 07/06/19 08:47 DC Lorazepam (Ativan Inj) 1 mg PRN Q4HRS PRN 07/07/19 09:00 07/07/19 09:05 1 MG Magnesium Sulfate 50 ml @ 25 mls/hr 1X ONCE 07/06/19 03:00 07/06/19 04:59 DC 07/06/19 02:57 25 MLS/HR Meropenem 1 gm/ Sodium Chloride 100 ml @ 200 mls/hr Q8HRS 07/05/19 20:00 07/06/19 08:48 DC 07/06/19 05:45 200 MLS/HR Meropenem 500 mg/ Sodium Chloride 50 ml @ 100 mls/hr Q12HR 07/06/19 18:00 07/06/19 17:16 100 MLS/HR Metoprolol Tartrate (Lopressor Vial) 5 mg Q6HRS 07/05/19 10:15 07/07/19 02:18 5 MG Morphine Sulfate (Morphine Sulfate) 2 mg PRN Q2HR PRN 07/04/19 05:00 07/05/19 14:15 DC 07/05/19 12:26 2 MG Norepinephrine Bitartrate 8 mg/ Dextrose 258 ml @ 17.299 mls/ hr CONT PRN 07/05/19 15:30 07/06/19 11:34 13.44 MLS/HR Ondansetron HCl (Zofran) 4 mg PRN Q4HRS PRN 07/04/19 09:30 07/06/19 23:56 4 MG Pantoprazole Sodium (PROTONIX VIAL for IV PUSH) 40 mg DAILYAC 07/04/19 11:30 07/06/19 09:05 40 MG Piperacillin Sod/ Tazobactam Sod 4.5 gm/Sodium Chloride 100 ml @ 200 mls/hr 1X ONCE 07/04/19 06:00 07/04/19 06:29 DC 07/04/19 05:44 200 MLS/HR Prochlorperazine Edisylate (Compazine) 10 mg PRN Q6HRS PRN 07/04/19 17:45 07/05/19 00:42 10 MG Sodium Bicarbonate 50 meq/Sodium Chloride 1,050 ml @ 200 mls/hr Q5H15M 07/06/19 07:30 07/07/19 07:32 200 MLS/HR Sodium Chloride 1,000 ml @ 400 mls/hr Q2H30M PRN 07/07/19 08:56 07/07/19 20:55 Sodium Chloride 90 meq/Calcium Gluconate 10 meq/ Multivitamins 10 ml/Chromium/ Copper/Manganese/ Seleni/Zn 0.5 ml/ Total Parenteral Nutrition/Amino Acids/Dextrose/ Fat Emulsion Intravenous 1,512 ml @ 63 mls/hr TPN CONT 07/06/19 22:00 07/07/19 21:59 07/06/19 22:06 63 MLS/HR Sodium Chloride 90 meq/Calcium Gluconate 10 meq/ Multivitamins 10 ml/Chromium/ Copper/Manganese/ Seleni/Zn 1 ml/ Total Parenteral Nutrition/Amino Acids/Dextrose/ Fat Emulsion Intravenous 55.005 ml @ 2.292 mls/hr TPN CONT 07/06/19 22:00 07/06/19 12:33 DC Labs: Lab Laboratory Tests Test 07/06/19 11:38 07/06/19 17:20 07/06/19 17:26 07/07/19 00:23 Glucose (Fingerstick) 174 mg/dL (70-99) 99 mg/dL (70-99) Ionized Calcium 0.64 mmol/L (1.13-1.32) O2 Saturation 95 % (92-99) Arterial Blood pH 7.32 (7.35-7.45) Arterial Blood pH (Temp corrected) 7.30 Arterial Blood pCO2 at Patient Temp 40 mmHg (35-46) Arterial Blood pCO2 (Temp correct) 42 mmHg Arterial Blood pO2 at Patient Temp 79 mmHg (75-108) Arterial Blood pO2 (Temp corrected) 85 mmHg Arterial Blood HCO3 20 mmol/L (21-28) Arterial Blood Base Excess -6 mmol/L (-3-3) FiO2 60 Test 07/07/19 00:55 07/07/19 00:58 07/07/19 06:15 07/07/19 06:18 Sodium Level 140 mmol/L (136-145) 139 mmol/L (136-145) Potassium Level 3.8 mmol/L (3.5-5.1) 3.8 mmol/L (3.5-5.1) Chloride Level 104 mmol/L (98-107) 103 mmol/L (98-107) Carbon Dioxide Level 25 mmol/L (21-32) 23 mmol/L (21-32) Anion Gap 11 (6-14) 13 (6-14) Blood Urea Nitrogen 38 mg/dL (7-20) 52 mg/dL (7-20) Creatinine 5.2 mg/dL (0.6-1.0) 5.7 mg/dL (0.6-1.0) Estimated GFR (Cockcroft-Gault) 8.8 7.9 BUN/Creatinine Ratio 7 (6-20) 9 (6-20) Glucose Level 223 mg/dL (70-99) 236 mg/dL (70-99) Calcium Level < 5.0 mg/dL (8.5-10.1) < 5.0 mg/dL (8.5-10.1) Phosphorus Level 4.4 mg/dL (2.6-4.7) 4.5 mg/dL (2.6-4.7) Magnesium Level 1.3 mg/dL (1.8-2.4) 1.4 mg/dL (1.8-2.4) Total Bilirubin 1.0 mg/dL (0.2-1.0) 0.7 mg/dL (0.2-1.0) Aspartate Amino Transf (AST/SGOT) 127 U/L (15-37) 111 U/L (15-37) Alanine Aminotransferase (ALT/SGPT) 103 U/L (14-59) 84 U/L (14-59) Alkaline Phosphatase 57 U/L (46-116) 57 U/L (46-116) Total Protein 3.7 g/dL (6.4-8.2) 4.3 g/dL (6.4-8.2) Albumin 1.8 g/dL (3.4-5.0) 1.5 g/dL (3.4-5.0) Albumin/Globulin Ratio 0.9 (1.0-1.7) 0.5 (1.0-1.7) Glucose (Fingerstick) 204 mg/dL (70-99) 201 mg/dL (70-99) White Blood Count 18.1 x10^3/uL (4.0-11.0) Red Blood Count 3.53 x10^6/uL (3.50-5.40) Hemoglobin 11.7 g/dL (12.0-15.5) Hematocrit 34.8 % (36.0-47.0) Mean Corpuscular Volume 99 fL (79-100) Mean Corpuscular Hemoglobin 33 pg (25-35) Mean Corpuscular Hemoglobin Concent 34 g/dL (31-37) Red Cell Distribution Width 13.7 % (11.5-14.5) Platelet Count 162 x10^3/uL (140-400) Neutrophils (%) (Auto) 88 % (31-73) Lymphocytes (%) (Auto) 7 % (24-48) Monocytes (%) (Auto) 5 % (0-9) Eosinophils (%) (Auto) 0 % (0-3) Basophils (%) (Auto) 0 % (0-3) Neutrophils # (Auto) 16.0 x10^3/uL (1.8-7.7) Lymphocytes # (Auto) 1.2 x10^3/uL (1.0-4.8) Monocytes # (Auto) 0.8 x10^3/uL (0.0-1.1) Eosinophils # (Auto) 0.0 x10^3/uL (0.0-0.7) Basophils # (Auto) 0.0 x10^3/uL (0.0-0.2) Objective: Assessment: Acute pancreatitis, early developing necrosis Cholelithiasis Leucocytosis JUANA,Hyperkalemia, Metabolic acidosis on HD Acute hypoxic resp failure hypocalcemia Prediabetes HTN Plan: Plan of Care cont merrem ,renal dosing, pharmacy to assist f/u labs and cults cont supportive care d/w YUNIOR CARRILLO MD Jul 07, 2019 09:14
[2019-07-07] MEDS: PANTOPRAZOLE IV PUSH 40 MG VIAL. IVP SCH (09:27)
[2019-07-07] MEDS: MEROPENEM 500 MG in IV NORMAL SALINE 50ML 50 ML IV SCH ×2 (09:27→22:25)
[2019-07-07] MEDS ORDERED: DIGOXIN IV 500 MCG/2 ML AMPUL. IV ONE ×2 (10:00→18:00)
--- NOTE | 2019-07-07 10:14 | PDOC ---
G I PROGRESS NOTE Subjective Received sedation before I saw. Did not respond verbally or to palpation. Objective Others' notes reviewed. Physical Exam Lungs clear anteriorly. RRR Abdomen soft, diminished bowel sounds. Review of Relevant I have reviewed the following items kolby (where applicable) has been applied. Labs Laboratory Tests Test 07/05/19 11:48 07/05/19 16:50 07/05/19 18:02 07/05/19 20:30 Glucose (Fingerstick) 231 mg/dL (70-99) 232 mg/dL (70-99) White Blood Count 22.7 x10^3/uL (4.0-11.0) Red Blood Count 4.12 x10^6/uL (3.50-5.40) Hemoglobin 13.8 g/dL (12.0-15.5) Hematocrit 42.0 % (36.0-47.0) Mean Corpuscular Volume 102 fL (79-100) Mean Corpuscular Hemoglobin 34 pg (25-35) Mean Corpuscular Hemoglobin Concent 33 g/dL (31-37) Red Cell Distribution Width 13.8 % (11.5-14.5) Platelet Count 212 x10^3/uL (140-400) Sodium Level 139 mmol/L (136-145) Potassium Level 6.8 mmol/L (3.5-5.1) Chloride Level 109 mmol/L (98-107) Carbon Dioxide Level 17 mmol/L (21-32) Anion Gap 13 (6-14) Blood Urea Nitrogen 56 mg/dL (7-20) Creatinine 5.0 mg/dL (0.6-1.0) Estimated GFR (Cockcroft-Gault) 9.2 BUN/Creatinine Ratio 11 (6-20) Glucose Level 196 mg/dL (70-99) Calcium Level < 5.0 mg/dL (8.5-10.1) Phosphorus Level 1.2 mg/dL (2.6-4.7) Magnesium Level 1.2 mg/dL (1.8-2.4) Total Bilirubin 1.9 mg/dL (0.2-1.0) Aspartate Amino Transf (AST/SGOT) 214 U/L (15-37) Alanine Aminotransferase (ALT/SGPT) 263 U/L (14-59) Alkaline Phosphatase 75 U/L (46-116) Total Protein 5.6 g/dL (6.4-8.2) Albumin 2.8 g/dL (3.4-5.0) Albumin/Globulin Ratio 1.0 (1.0-1.7) Test 07/06/19 00:15 07/06/19 00:17 07/06/19 05:45 07/06/19 05:53 White Blood Count 22.9 x10^3/uL (4.0-11.0) 22.6 x10^3/uL (4.0-11.0) Hemoglobin 15.1 g/dL (12.0-15.5) 14.2 g/dL (12.0-15.5) Hematocrit 45.5 % (36.0-47.0) 43.0 % (36.0-47.0) Platelet Count 232 x10^3/uL (140-400) 207 x10^3/uL (140-400) Prothrombin Time 16.8 SEC (11.7-14.0) Prothromb Time International Ratio 1.4 (0.8-1.1) Sodium Level 141 mmol/L (136-145) 143 mmol/L (136-145) Potassium Level 5.7 mmol/L (3.5-5.1) 5.9 mmol/L (3.5-5.1) Chloride Level 112 mmol/L (98-107) 114 mmol/L (98-107) Carbon Dioxide Level 17 mmol/L (21-32) 14 mmol/L (21-32) Anion Gap 12 (6-14) 15 (6-14) Blood Urea Nitrogen 63 mg/dL (7-20) 64 mg/dL (7-20) Creatinine 5.5 mg/dL (0.6-1.0) 5.9 mg/dL (0.6-1.0) Estimated GFR (Cockcroft-Gault) 8.2 7.6 Glucose Level 129 mg/dL (70-99) 167 mg/dL (70-99) Lactic Acid Level 1.6 mmol/L (0.4-2.0) Calcium Level 5.3 mg/dL (8.5-10.1) < 5.0 mg/dL (8.5-10.1) Phosphorus Level 1.7 mg/dL (2.6-4.7) 1.9 mg/dL (2.6-4.7) Magnesium Level 1.3 mg/dL (1.8-2.4) 2.1 mg/dL (1.8-2.4) Glucose (Fingerstick) 127 mg/dL (70-99) 174 mg/dL (70-99) Red Blood Count 4.24 x10^6/uL (3.50-5.40) Mean Corpuscular Volume 101 fL (79-100) Mean Corpuscular Hemoglobin 34 pg (25-35) Mean Corpuscular Hemoglobin Concent 33 g/dL (31-37) Red Cell Distribution Width 14.3 % (11.5-14.5) Neutrophils (%) (Auto) 88 % (31-73) Lymphocytes (%) (Auto) 6 % (24-48) Monocytes (%) (Auto) 6 % (0-9) Eosinophils (%) (Auto) 0 % (0-3) Basophils (%) (Auto) 0 % (0-3) Neutrophils # (Auto) 19.8 x10^3/uL (1.8-7.7) Lymphocytes # (Auto) 1.3 x10^3/uL (1.0-4.8) Monocytes # (Auto) 1.4 x10^3/uL (0.0-1.1) Eosinophils # (Auto) 0.0 x10^3/uL (0.0-0.7) Basophils # (Auto) 0.0 x10^3/uL (0.0-0.2) BUN/Creatinine Ratio 11 (6-20) Total Bilirubin 1.3 mg/dL (0.2-1.0) Aspartate Amino Transf (AST/SGOT) 164 U/L (15-37) Alanine Aminotransferase (ALT/SGPT) 169 U/L (14-59) Alkaline Phosphatase 60 U/L (46-116) Total Protein 4.8 g/dL (6.4-8.2) Albumin 2.1 g/dL (3.4-5.0) Albumin/Globulin Ratio 0.8 (1.0-1.7) Lipase 3832 U/L (73-393) Hepatitis B Surface Antigen Nonreactive (Nonreactive) Hepatitis B Core Total Antibody Nonreactive (Nonreactive) Test 3/18/20 09:05 07/06/19 11:38 07/06/19 17:20 07/06/19 17:26 O2 Saturation 95 % (92-99) Arterial Blood pH 7.23 (7.35-7.45) Arterial Blood pCO2 at Patient Temp 26 mmHg (35-46) Arterial Blood pO2 at Patient Temp 77 mmHg (75-108) Arterial Blood HCO3 11 mmol/L (21-28) Arterial Blood Base Excess -15 mmol/L (-3-3) FiO2 35 Glucose (Fingerstick) 174 mg/dL (70-99) 99 mg/dL (70-99) Ionized Calcium 0.64 mmol/L (1.13-1.32) Test 07/07/19 00:23 07/07/19 00:55 07/07/19 00:58 07/07/19 06:15 O2 Saturation 95 % (92-99) Arterial Blood pH 7.32 (7.35-7.45) Arterial Blood pH (Temp corrected) 7.30 Arterial Blood pCO2 at Patient Temp 40 mmHg (35-46) Arterial Blood pCO2 (Temp correct) 42 mmHg Arterial Blood pO2 at Patient Temp 79 mmHg (75-108) Arterial Blood pO2 (Temp corrected) 85 mmHg Arterial Blood HCO3 20 mmol/L (21-28) Arterial Blood Base Excess -6 mmol/L (-3-3) FiO2 60 Sodium Level 140 mmol/L (136-145) 139 mmol/L (136-145) Potassium Level 3.8 mmol/L (3.5-5.1) 3.8 mmol/L (3.5-5.1) Chloride Level 104 mmol/L (98-107) 103 mmol/L (98-107) Carbon Dioxide Level 25 mmol/L (21-32) 23 mmol/L (21-32) Anion Gap 11 (6-14) 13 (6-14) Blood Urea Nitrogen 38 mg/dL (7-20) 52 mg/dL (7-20) Creatinine 5.2 mg/dL (0.6-1.0) 5.7 mg/dL (0.6-1.0) Estimated GFR (Cockcroft-Gault) 8.8 7.9 BUN/Creatinine Ratio 7 (6-20) 9 (6-20) Glucose Level 223 mg/dL (70-99) 236 mg/dL (70-99) Calcium Level < 5.0 mg/dL (8.5-10.1) < 5.0 mg/dL (8.5-10.1) Phosphorus Level 4.4 mg/dL (2.6-4.7) 4.5 mg/dL (2.6-4.7) Magnesium Level 1.3 mg/dL (1.8-2.4) 1.4 mg/dL (1.8-2.4) Total Bilirubin 1.0 mg/dL (0.2-1.0) 0.7 mg/dL (0.2-1.0) Aspartate Amino Transf (AST/SGOT) 127 U/L (15-37) 111 U/L (15-37) Alanine Aminotransferase (ALT/SGPT) 103 U/L (14-59) 84 U/L (14-59) Alkaline Phosphatase 57 U/L (46-116) 57 U/L (46-116) Total Protein 3.7 g/dL (6.4-8.2) 4.3 g/dL (6.4-8.2) Albumin 1.8 g/dL (3.4-5.0) 1.5 g/dL (3.4-5.0) Albumin/Globulin Ratio 0.9 (1.0-1.7) 0.5 (1.0-1.7) Glucose (Fingerstick) 204 mg/dL (70-99) White Blood Count 18.1 x10^3/uL (4.0-11.0) Red Blood Count 3.53 x10^6/uL (3.50-5.40) Hemoglobin 11.7 g/dL (12.0-15.5) Hematocrit 34.8 % (36.0-47.0) Mean Corpuscular Volume 99 fL (79-100) Mean Corpuscular Hemoglobin 33 pg (25-35) Mean Corpuscular Hemoglobin Concent 34 g/dL (31-37) Red Cell Distribution Width 13.7 % (11.5-14.5) Platelet Count 162 x10^3/uL (140-400) Neutrophils (%) (Auto) 88 % (31-73) Lymphocytes (%) (Auto) 7 % (24-48) Monocytes (%) (Auto) 5 % (0-9) Eosinophils (%) (Auto) 0 % (0-3) Basophils (%) (Auto) 0 % (0-3) Neutrophils # (Auto) 16.0 x10^3/uL (1.8-7.7) Lymphocytes # (Auto) 1.2 x10^3/uL (1.0-4.8) Monocytes # (Auto) 0.8 x10^3/uL (0.0-1.1) Eosinophils # (Auto) 0.0 x10^3/uL (0.0-0.7) Basophils # (Auto) 0.0 x10^3/uL (0.0-0.2) Test 07/07/19 06:18 Glucose (Fingerstick) 201 mg/dL (70-99) Laboratory Tests Test 07/06/19 11:38 07/06/19 17:20 07/06/19 17:26 07/07/19 00:23 Glucose (Fingerstick) 174 mg/dL (70-99) 99 mg/dL (70-99) Ionized Calcium 0.64 mmol/L (1.13-1.32) O2 Saturation 95 % (92-99) Arterial Blood pH 7.32 (7.35-7.45) Arterial Blood pH (Temp corrected) 7.30 Arterial Blood pCO2 at Patient Temp 40 mmHg (35-46) Arterial Blood pCO2 (Temp correct) 42 mmHg Arterial Blood pO2 at Patient Temp 79 mmHg (75-108) Arterial Blood pO2 (Temp corrected) 85 mmHg Arterial Blood HCO3 20 mmol/L (21-28) Arterial Blood Base Excess -6 mmol/L (-3-3) FiO2 60 Test 07/07/19 00:55 07/07/19 00:58 07/07/19 06:15 07/07/19 06:18 Sodium Level 140 mmol/L (136-145) 139 mmol/L (136-145) Potassium Level 3.8 mmol/L (3.5-5.1) 3.8 mmol/L (3.5-5.1) Chloride Level 104 mmol/L (98-107) 103 mmol/L (98-107) Carbon Dioxide Level 25 mmol/L (21-32) 23 mmol/L (21-32) Anion Gap 11 (6-14) 13 (6-14) Blood Urea Nitrogen 38 mg/dL (7-20) 52 mg/dL (7-20) Creatinine 5.2 mg/dL (0.6-1.0) 5.7 mg/dL (0.6-1.0) Estimated GFR (Cockcroft-Gault) 8.8 7.9 BUN/Creatinine Ratio 7 (6-20) 9 (6-20) Glucose Level 223 mg/dL (70-99) 236 mg/dL (70-99) Calcium Level < 5.0 mg/dL (8.5-10.1) < 5.0 mg/dL (8.5-10.1) Phosphorus Level 4.4 mg/dL (2.6-4.7) 4.5 mg/dL (2.6-4.7) Magnesium Level 1.3 mg/dL (1.8-2.4) 1.4 mg/dL (1.8-2.4) Total Bilirubin 1.0 mg/dL (0.2-1.0) 0.7 mg/dL (0.2-1.0) Aspartate Amino Transf (AST/SGOT) 127 U/L (15-37) 111 U/L (15-37) Alanine Aminotransferase (ALT/SGPT) 103 U/L (14-59) 84 U/L (14-59) Alkaline Phosphatase 57 U/L (46-116) 57 U/L (46-116) Total Protein 3.7 g/dL (6.4-8.2) 4.3 g/dL (6.4-8.2) Albumin 1.8 g/dL (3.4-5.0) 1.5 g/dL (3.4-5.0) Albumin/Globulin Ratio 0.9 (1.0-1.7) 0.5 (1.0-1.7) Glucose (Fingerstick) 204 mg/dL (70-99) 201 mg/dL (70-99) White Blood Count 18.1 x10^3/uL (4.0-11.0) Red Blood Count 3.53 x10^6/uL (3.50-5.40) Hemoglobin 11.7 g/dL (12.0-15.5) Hematocrit 34.8 % (36.0-47.0) Mean Corpuscular Volume 99 fL (79-100) Mean Corpuscular Hemoglobin 33 pg (25-35) Mean Corpuscular Hemoglobin Concent 34 g/dL (31-37) Red Cell Distribution Width 13.7 % (11.5-14.5) Platelet Count 162 x10^3/uL (140-400) Neutrophils (%) (Auto) 88 % (31-73) Lymphocytes (%) (Auto) 7 % (24-48) Monocytes (%) (Auto) 5 % (0-9) Eosinophils (%) (Auto) 0 % (0-3) Basophils (%) (Auto) 0 % (0-3) Neutrophils # (Auto) 16.0 x10^3/uL (1.8-7.7) Lymphocytes # (Auto) 1.2 x10^3/uL (1.0-4.8) Monocytes # (Auto) 0.8 x10^3/uL (0.0-1.1) Eosinophils # (Auto) 0.0 x10^3/uL (0.0-0.7) Basophils # (Auto) 0.0 x10^3/uL (0.0-0.2) Microbiology 07/06/19 Blood Culture - Preliminary, Resulted NO GROWTH AFTER 1 DAY Labs stable. Vitals/I & O Vital Sign - Last 24 Hours 07/06/19 07/06/19 07/06/19 07/06/19 10:24 11:18 11:33 11:43 Temp 101.3 101.3 Pulse 130 133 133 Resp 36 36 33 35 B/P (MAP) 116/66 (83) 139/72 (94) 131/70 (90) Pulse Ox 96 98 98 98 O2 Delivery Nasal Cannula Nasal Cannula Nasal Cannula Nasal Cannula O2 Flow Rate 3.0 3.0 3.0 3.0 07/06/19 07/06/19 07/06/19 07/06/19 11:44 12:00 12:03 12:45 Pulse 133 Resp 21 B/P (MAP) 128/65 (86) 96/50 O2 Delivery Nasal Cannula Room Air O2 Flow Rate 3.0 07/06/19 07/06/19 07/06/19 07/06/19 12:48 13:40 14:07 15:23 Temp 99.7 99.7 Pulse 128 128 126 Resp 21 30 32 B/P (MAP) 95/58 (70) 96/63 (74) 110/65 (80) 109/79 (89) Pulse Ox 97 91 95 O2 Delivery Nasal Cannula Nasal Cannula Nasal Cannula O2 Flow Rate 3.0 3.0 3.0 07/06/19 07/06/19 07/06/19 07/06/19 15:39 15:40 16:03 16:03 Pulse 124 Resp 20 B/P (MAP) 122/68 (86) 122/64 (83) 135/68 (90) Pulse Ox 95 O2 Delivery Room Air O2 Flow Rate 3.0 07/06/19 07/06/19 07/06/19 07/06/19 16:50 17:15 17:45 18:00 Pulse 126 Resp 30 22 B/P (MAP) 123/69 (87) 100/57 O2 Delivery Nasal Cannula O2 Flow Rate 3.0 07/06/19 07/06/19 07/06/19 07/06/19 18:46 19:00 20:00 20:00 Pulse 131 131 Resp 24 24 B/P (MAP) 118/57 (77) 112/58 (76) 90/59 (69) Pulse Ox 97 97 O2 Delivery Nasal Cannula Nasal Cannula Nasal Cannula O2 Flow Rate 3.0 3.0 3.0 07/06/19 07/06/19 07/06/19 07/06/19 20:00 20:57 21:00 21:27 Temp 98.1 98.1 Pulse 131 130 Resp 24 24 B/P (MAP) 118/63 (81) 116/62 (80) Pulse Ox 97 97 93 96 O2 Delivery Nasal Cannula Room Air Nasal Cannula Nasal Cannula O2 Flow Rate 3.0 3.0 3.0 6.0 07/06/19 07/06/19 07/06/19 07/07/19 22:00 23:00 23:56 00:00 Temp 100.8 100.8 Pulse 132 131 134 Resp 26 24 26 25 B/P (MAP) 114/62 (79) 119/63 (81) 113/56 (75) Pulse Ox 90 96 96 91 O2 Delivery Nasal Cannula Nasal Cannula Nasal Cannula Nasal Cannula O2 Flow Rate 3.0 6.0 10.0 8.0 07/07/19 07/07/19 07/07/19 07/07/19 00:00 00:00 01:00 02:00 Pulse 140 119 Resp 22 B/P (MAP) 116/81 (93) 106/54 (71) 103/54 (70) Pulse Ox 95 95 O2 Delivery Nasal Cannula Nasal Cannula Nasal Cannula O2 Flow Rate 6.0 6.0 6.0 07/07/19 07/07/19 07/07/19 07/07/19 02:18 02:41 02:44 03:00 Pulse 131 119 Resp 22 22 B/P (MAP) 119/63 101/54 (70) Pulse Ox 96 96 96 O2 Delivery Nasal Cannula Nasal Cannula Nasal Cannula O2 Flow Rate 10.0 10.0 6.0 07/07/19 07/07/19 07/07/19 07/07/19 04:00 04:00 04:00 04:29 Temp 98.8 98.8 Pulse 121 Resp 20 B/P (MAP) 96/51 (66) 90/59 (69) Pulse Ox 97 95 O2 Delivery BiPAP/CPAP Bi-pap BiPAP/CPAP 07/07/19 07/07/19 07/07/19 07/07/19 05:00 05:53 06:00 06:03 Pulse 124 125 Resp 20 22 31 B/P (MAP) 101/55 (70) 97/53 (68) Pulse Ox 98 98 98 98 O2 Delivery BiPAP/CPAP BiPAP/CPAP BiPAP/CPAP BiPAP/CPAP O2 Flow Rate 6.0 07/07/19 07/07/19 08:46 10:04 Pulse 135 B/P (MAP) 97/53 Pulse Ox 99 O2 Delivery BiPAP/CPAP Intake and Output 07/06/19 07/06/19 07/07/19 15:00 23:00 07:00 Intake Total 220 ml 1280 ml 2638 ml Output Total 70 ml 10 ml 5 ml Balance 150 ml 1270 ml 2633 ml Still not much urine output. Problem List Problems Medical Problems: (1) Acute pancreatitis Status: Acute (2) Cholelithiasis Status: Acute Assessment Biliary pancreatitis, necrotizing/severe, with renal failure, hypocalcemia, pulmonary compromise. Plan of Care Note Continue support. Hemodynamically unstable?: No Is patient in severe pain?: Yes Is NPO status required?: Yes MARY RIVAS MD Jul 07, 2019 10:14
--- NOTE | 2019-07-07 11:05 | PDOC ---
SURGICAL PROGRESS NOTE Subjective was sleeping soundly after some ativan awakened easily, mildly confused BIPAP on Vital Signs Vital Signs Date Time Temp Pulse Resp B/P (MAP) Pulse Ox O2 Delivery O2 Flow Rate FiO2 07/07/19 10:04 135 97/53 07/07/19 08:46 99 BiPAP/CPAP 07/07/19 06:03 31 07/07/19 05:53 6.0 07/07/19 04:00 98.8 98.8 I&O Intake and Output 07/07/19 07:00 Intake Total 4138 ml Output Total 85 ml Balance 4053 ml IV Total 4138 ml Output Urine Total 85 ml PATIENT HAS A ROSARIO: Yes (minimal UO) General: No acute distress HEENT: Atraumatic, Other (some bilious staining around mouth) Heart: Other (increased rate) Abdomen: Soft, Other (mildy TTP in the RUQ, epigastrium) Labs Laboratory Tests Test 07/05/19 11:48 07/05/19 16:50 07/05/19 18:02 07/05/19 20:30 Glucose (Fingerstick) 231 mg/dL (70-99) 232 mg/dL (70-99) White Blood Count 22.7 x10^3/uL (4.0-11.0) Red Blood Count 4.12 x10^6/uL (3.50-5.40) Hemoglobin 13.8 g/dL (12.0-15.5) Hematocrit 42.0 % (36.0-47.0) Mean Corpuscular Volume 102 fL (79-100) Mean Corpuscular Hemoglobin 34 pg (25-35) Mean Corpuscular Hemoglobin Concent 33 g/dL (31-37) Red Cell Distribution Width 13.8 % (11.5-14.5) Platelet Count 212 x10^3/uL (140-400) Sodium Level 139 mmol/L (136-145) Potassium Level 6.8 mmol/L (3.5-5.1) Chloride Level 109 mmol/L (98-107) Carbon Dioxide Level 17 mmol/L (21-32) Anion Gap 13 (6-14) Blood Urea Nitrogen 56 mg/dL (7-20) Creatinine 5.0 mg/dL (0.6-1.0) Estimated GFR (Cockcroft-Gault) 9.2 BUN/Creatinine Ratio 11 (6-20) Glucose Level 196 mg/dL (70-99) Calcium Level < 5.0 mg/dL (8.5-10.1) Phosphorus Level 1.2 mg/dL (2.6-4.7) Magnesium Level 1.2 mg/dL (1.8-2.4) Total Bilirubin 1.9 mg/dL (0.2-1.0) Aspartate Amino Transf (AST/SGOT) 214 U/L (15-37) Alanine Aminotransferase (ALT/SGPT) 263 U/L (14-59) Alkaline Phosphatase 75 U/L (46-116) Total Protein 5.6 g/dL (6.4-8.2) Albumin 2.8 g/dL (3.4-5.0) Albumin/Globulin Ratio 1.0 (1.0-1.7) Test 07/06/19 00:15 07/06/19 00:17 07/06/19 05:45 07/06/19 05:53 White Blood Count 22.9 x10^3/uL (4.0-11.0) 22.6 x10^3/uL (4.0-11.0) Hemoglobin 15.1 g/dL (12.0-15.5) 14.2 g/dL (12.0-15.5) Hematocrit 45.5 % (36.0-47.0) 43.0 % (36.0-47.0) Platelet Count 232 x10^3/uL (140-400) 207 x10^3/uL (140-400) Prothrombin Time 16.8 SEC (11.7-14.0) Prothromb Time International Ratio 1.4 (0.8-1.1) Sodium Level 141 mmol/L (136-145) 143 mmol/L (136-145) Potassium Level 5.7 mmol/L (3.5-5.1) 5.9 mmol/L (3.5-5.1) Chloride Level 112 mmol/L (98-107) 114 mmol/L (98-107) Carbon Dioxide Level 17 mmol/L (21-32) 14 mmol/L (21-32) Anion Gap 12 (6-14) 15 (6-14) Blood Urea Nitrogen 63 mg/dL (7-20) 64 mg/dL (7-20) Creatinine 5.5 mg/dL (0.6-1.0) 5.9 mg/dL (0.6-1.0) Estimated GFR (Cockcroft-Gault) 8.2 7.6 Glucose Level 129 mg/dL (70-99) 167 mg/dL (70-99) Lactic Acid Level 1.6 mmol/L (0.4-2.0) Calcium Level 5.3 mg/dL (8.5-10.1) < 5.0 mg/dL (8.5-10.1) Phosphorus Level 1.7 mg/dL (2.6-4.7) 1.9 mg/dL (2.6-4.7) Magnesium Level 1.3 mg/dL (1.8-2.4) 2.1 mg/dL (1.8-2.4) Glucose (Fingerstick) 127 mg/dL (70-99) 174 mg/dL (70-99) Red Blood Count 4.24 x10^6/uL (3.50-5.40) Mean Corpuscular Volume 101 fL (79-100) Mean Corpuscular Hemoglobin 34 pg (25-35) Mean Corpuscular Hemoglobin Concent 33 g/dL (31-37) Red Cell Distribution Width 14.3 % (11.5-14.5) Neutrophils (%) (Auto) 88 % (31-73) Lymphocytes (%) (Auto) 6 % (24-48) Monocytes (%) (Auto) 6 % (0-9) Eosinophils (%) (Auto) 0 % (0-3) Basophils (%) (Auto) 0 % (0-3) Neutrophils # (Auto) 19.8 x10^3/uL (1.8-7.7) Lymphocytes # (Auto) 1.3 x10^3/uL (1.0-4.8) Monocytes # (Auto) 1.4 x10^3/uL (0.0-1.1) Eosinophils # (Auto) 0.0 x10^3/uL (0.0-0.7) Basophils # (Auto) 0.0 x10^3/uL (0.0-0.2) BUN/Creatinine Ratio 11 (6-20) Total Bilirubin 1.3 mg/dL (0.2-1.0) Aspartate Amino Transf (AST/SGOT) 164 U/L (15-37) Alanine Aminotransferase (ALT/SGPT) 169 U/L (14-59) Alkaline Phosphatase 60 U/L (46-116) Total Protein 4.8 g/dL (6.4-8.2) Albumin 2.1 g/dL (3.4-5.0) Albumin/Globulin Ratio 0.8 (1.0-1.7) Lipase 3832 U/L (73-393) Hepatitis B Surface Antigen Nonreactive (Nonreactive) Hepatitis B Core Total Antibody Nonreactive (Nonreactive) Test 07/06/19 09:05 07/06/19 11:38 07/06/19 17:20 07/06/19 17:26 O2 Saturation 95 % (92-99) Arterial Blood pH 7.23 (7.35-7.45) Arterial Blood pCO2 at Patient Temp 26 mmHg (35-46) Arterial Blood pO2 at Patient Temp 77 mmHg (75-108) Arterial Blood HCO3 11 mmol/L (21-28) Arterial Blood Base Excess -15 mmol/L (-3-3) FiO2 35 Glucose (Fingerstick) 174 mg/dL (70-99) 99 mg/dL (70-99) Ionized Calcium 0.64 mmol/L (1.13-1.32) Test 07/07/19 00:23 07/07/19 00:55 07/07/19 00:58 07/07/19 06:15 O2 Saturation 95 % (92-99) Arterial Blood pH 7.32 (7.35-7.45) Arterial Blood pH (Temp corrected) 7.30 Arterial Blood pCO2 at Patient Temp 40 mmHg (35-46) Arterial Blood pCO2 (Temp correct) 42 mmHg Arterial Blood pO2 at Patient Temp 79 mmHg (75-108) Arterial Blood pO2 (Temp corrected) 85 mmHg Arterial Blood HCO3 20 mmol/L (21-28) Arterial Blood Base Excess -6 mmol/L (-3-3) FiO2 60 Sodium Level 140 mmol/L (136-145) 139 mmol/L (136-145) Potassium Level 3.8 mmol/L (3.5-5.1) 3.8 mmol/L (3.5-5.1) Chloride Level 104 mmol/L (98-107) 103 mmol/L (98-107) Carbon Dioxide Level 25 mmol/L (21-32) 23 mmol/L (21-32) Anion Gap 11 (6-14) 13 (6-14) Blood Urea Nitrogen 38 mg/dL (7-20) 52 mg/dL (7-20) Creatinine 5.2 mg/dL (0.6-1.0) 5.7 mg/dL (0.6-1.0) Estimated GFR (Cockcroft-Gault) 8.8 7.9 BUN/Creatinine Ratio 7 (6-20) 9 (6-20) Glucose Level 223 mg/dL (70-99) 236 mg/dL (70-99) Calcium Level < 5.0 mg/dL (8.5-10.1) < 5.0 mg/dL (8.5-10.1) Phosphorus Level 4.4 mg/dL (2.6-4.7) 4.5 mg/dL (2.6-4.7) Magnesium Level 1.3 mg/dL (1.8-2.4) 1.4 mg/dL (1.8-2.4) Total Bilirubin 1.0 mg/dL (0.2-1.0) 0.7 mg/dL (0.2-1.0) Aspartate Amino Transf (AST/SGOT) 127 U/L (15-37) 111 U/L (15-37) Alanine Aminotransferase (ALT/SGPT) 103 U/L (14-59) 84 U/L (14-59) Alkaline Phosphatase 57 U/L (46-116) 57 U/L (46-116) Total Protein 3.7 g/dL (6.4-8.2) 4.3 g/dL (6.4-8.2) Albumin 1.8 g/dL (3.4-5.0) 1.5 g/dL (3.4-5.0) Albumin/Globulin Ratio 0.9 (1.0-1.7) 0.5 (1.0-1.7) Glucose (Fingerstick) 204 mg/dL (70-99) White Blood Count 18.1 x10^3/uL (4.0-11.0) Red Blood Count 3.53 x10^6/uL (3.50-5.40) Hemoglobin 11.7 g/dL (12.0-15.5) Hematocrit 34.8 % (36.0-47.0) Mean Corpuscular Volume 99 fL (79-100) Mean Corpuscular Hemoglobin 33 pg (25-35) Mean Corpuscular Hemoglobin Concent 34 g/dL (31-37) Red Cell Distribution Width 13.7 % (11.5-14.5) Platelet Count 162 x10^3/uL (140-400) Neutrophils (%) (Auto) 88 % (31-73) Lymphocytes (%) (Auto) 7 % (24-48) Monocytes (%) (Auto) 5 % (0-9) Eosinophils (%) (Auto) 0 % (0-3) Basophils (%) (Auto) 0 % (0-3) Neutrophils # (Auto) 16.0 x10^3/uL (1.8-7.7) Lymphocytes # (Auto) 1.2 x10^3/uL (1.0-4.8) Monocytes # (Auto) 0.8 x10^3/uL (0.0-1.1) Eosinophils # (Auto) 0.0 x10^3/uL (0.0-0.7) Basophils # (Auto) 0.0 x10^3/uL (0.0-0.2) Test 07/07/19 06:18 Glucose (Fingerstick) 201 mg/dL (70-99) Laboratory Tests Test 07/06/19 11:38 07/06/19 17:20 07/06/19 17:26 07/07/19 00:23 Glucose (Fingerstick) 174 mg/dL (70-99) 99 mg/dL (70-99) Ionized Calcium 0.64 mmol/L (1.13-1.32) O2 Saturation 95 % (92-99) Arterial Blood pH 7.32 (7.35-7.45) Arterial Blood pH (Temp corrected) 7.30 Arterial Blood pCO2 at Patient Temp 40 mmHg (35-46) Arterial Blood pCO2 (Temp correct) 42 mmHg Arterial Blood pO2 at Patient Temp 79 mmHg (75-108) Arterial Blood pO2 (Temp corrected) 85 mmHg Arterial Blood HCO3 20 mmol/L (21-28) Arterial Blood Base Excess -6 mmol/L (-3-3) FiO2 60 Test 07/07/19 00:55 07/07/19 00:58 07/07/19 06:15 07/07/19 06:18 Sodium Level 140 mmol/L (136-145) 139 mmol/L (136-145) Potassium Level 3.8 mmol/L (3.5-5.1) 3.8 mmol/L (3.5-5.1) Chloride Level 104 mmol/L (98-107) 103 mmol/L (98-107) Carbon Dioxide Level 25 mmol/L (21-32) 23 mmol/L (21-32) Anion Gap 11 (6-14) 13 (6-14) Blood Urea Nitrogen 38 mg/dL (7-20) 52 mg/dL (7-20) Creatinine 5.2 mg/dL (0.6-1.0) 5.7 mg/dL (0.6-1.0) Estimated GFR (Cockcroft-Gault) 8.8 7.9 BUN/Creatinine Ratio 7 (6-20) 9 (6-20) Glucose Level 223 mg/dL (70-99) 236 mg/dL (70-99) Calcium Level < 5.0 mg/dL (8.5-10.1) < 5.0 mg/dL (8.5-10.1) Phosphorus Level 4.4 mg/dL (2.6-4.7) 4.5 mg/dL (2.6-4.7) Magnesium Level 1.3 mg/dL (1.8-2.4) 1.4 mg/dL (1.8-2.4) Total Bilirubin 1.0 mg/dL (0.2-1.0) 0.7 mg/dL (0.2-1.0) Aspartate Amino Transf (AST/SGOT) 127 U/L (15-37) 111 U/L (15-37) Alanine Aminotransferase (ALT/SGPT) 103 U/L (14-59) 84 U/L (14-59) Alkaline Phosphatase 57 U/L (46-116) 57 U/L (46-116) Total Protein 3.7 g/dL (6.4-8.2) 4.3 g/dL (6.4-8.2) Albumin 1.8 g/dL (3.4-5.0) 1.5 g/dL (3.4-5.0) Albumin/Globulin Ratio 0.9 (1.0-1.7) 0.5 (1.0-1.7) Glucose (Fingerstick) 204 mg/dL (70-99) 201 mg/dL (70-99) White Blood Count 18.1 x10^3/uL (4.0-11.0) Red Blood Count 3.53 x10^6/uL (3.50-5.40) Hemoglobin 11.7 g/dL (12.0-15.5) Hematocrit 34.8 % (36.0-47.0) Mean Corpuscular Volume 99 fL (79-100) Mean Corpuscular Hemoglobin 33 pg (25-35) Mean Corpuscular Hemoglobin Concent 34 g/dL (31-37) Red Cell Distribution Width 13.7 % (11.5-14.5) Platelet Count 162 x10^3/uL (140-400) Neutrophils (%) (Auto) 88 % (31-73) Lymphocytes (%) (Auto) 7 % (24-48) Monocytes (%) (Auto) 5 % (0-9) Eosinophils (%) (Auto) 0 % (0-3) Basophils (%) (Auto) 0 % (0-3) Neutrophils # (Auto) 16.0 x10^3/uL (1.8-7.7) Lymphocytes # (Auto) 1.2 x10^3/uL (1.0-4.8) Monocytes # (Auto) 0.8 x10^3/uL (0.0-1.1) Eosinophils # (Auto) 0.0 x10^3/uL (0.0-0.7) Basophils # (Auto) 0.0 x10^3/uL (0.0-0.2) Problem List Problems Medical Problems: (1) Acute pancreatitis Status: Acute (2) Cholelithiasis Status: Acute Assessment/Plan gallstone pancreatitis, severe ARF respiratory compromise continue supportive care no acute surgical recs MARV WYNNE MD Jul 07, 2019 11:05
[2019-07-07 11:30] LABS: BASE EXCESS ABG 0 mmol/L (-3-3); HCO3 ABG 25 mmol/L (21-28); PCO2 ABG 40 mmHg (35-46); PO2 ABG 84 mmHg (75-108); SAT O2 ABG 96 % (92-99)
[2019-07-07 11:32] LABS: FIO2 ABG 45
--- NOTE | 2019-07-07 11:35 | PDOC ---
[employer] PROGRESS NOTE Chief Complaint Chief Complaint Severe Acute pancreatitis Acute kidney failure now requiring dialysis Salpingo--itis Gallstones (Calculus of gallbladder with acute cholecystitis without obstruction) HTN Leukocytosis Hypoxia Uterine fibroid Hypoxia with respiratory failure Intractable pain Intractable nausea History of Present Illness History of Present Illness [id number] Patient seen and examined in the ICU She is now on BiPAP appears more ill Discussed with RN Chart reviewed She is now on dialysis [id number] Patient seen and examined in the ICU She appears extremely ill critically ill Discussed with RN Getting a chest x-ray now Her sats are only 87% on nasal cannula oxygen Chart reviewed Vitals/I&O Vitals/I&O: Vital Signs Date Time Temp Pulse Resp B/P (MAP) Pulse Ox O2 Delivery O2 Flow Rate FiO2 07/07/19 11:19 90 BiPAP/CPAP 07/07/19 10:04 135 97/53 07/07/19 06:03 31 07/07/19 05:53 6.0 07/07/19 04:00 98.8 98.8 I & O 07/06/19 07/06/19 07/07/19 15:00 23:00 07:00 Intake Total 220 ml 1280 ml 2638 ml Output Total 70 ml 10 ml 5 ml Balance 150 ml 1270 ml 2633 ml Physical Exam Physical Exam: GENERAL: pt on bipap, Lethargic, alert, awake, ill-appearing female in ICU bed, cooperative. HEENT: Normocephalic, atraumatic. Mild icterus. No thrush. Oral mucosa dry. NECK: Supple. Temp HDC cath in place LUNGS: Decreased breath sounds at the bases. No wheezing. HEART: S1, S2, tachycardia. No murmurs. ABDOMEN: Soft, mildly distended. Mild tenderness on deep palpation upper abdomen. No rebound, no guarding. EXTREMITIES: + edema, no cyanosis. DERMATOLOGIC: Warm and dry. No generalized rash. PICC line in right upper extremity looks okay. CENTRAL NERVOUS SYSTEM: Alert and oriented x 3, grossly nonfocal. PSYCHIATRIC: Cooperative. General: No acute distress Heart: Other (increased rate) Lungs: Clear Abdomen: Soft, Other (mildy TTP in the RUQ, epigastrium) Extremities: No edema, Other (SOME CLUBBING ) Skin: No rashes, No breakdown, No significant lesion Labs Labs: Laboratory Tests Test 07/06/19 11:38 07/06/19 17:20 07/06/19 17:26 07/07/19 00:23 Glucose (Fingerstick) 174 mg/dL (70-99) 99 mg/dL (70-99) Ionized Calcium 0.64 mmol/L (1.13-1.32) O2 Saturation 95 % (92-99) Arterial Blood pH 7.32 (7.35-7.45) Arterial Blood pH (Temp corrected) 7.30 Arterial Blood pCO2 at Patient Temp 40 mmHg (35-46) Arterial Blood pCO2 (Temp correct) 42 mmHg Arterial Blood pO2 at Patient Temp 79 mmHg (75-108) Arterial Blood pO2 (Temp corrected) 85 mmHg Arterial Blood HCO3 20 mmol/L (21-28) Arterial Blood Base Excess -6 mmol/L (-3-3) FiO2 60 Test 07/07/19 00:55 07/07/19 00:58 07/07/19 06:15 07/07/19 06:18 Sodium Level 140 mmol/L (136-145) 139 mmol/L (136-145) Potassium Level 3.8 mmol/L (3.5-5.1) 3.8 mmol/L (3.5-5.1) Chloride Level 104 mmol/L (98-107) 103 mmol/L (98-107) Carbon Dioxide Level 25 mmol/L (21-32) 23 mmol/L (21-32) Anion Gap 11 (6-14) 13 (6-14) Blood Urea Nitrogen 38 mg/dL (7-20) 52 mg/dL (7-20) Creatinine 5.2 mg/dL (0.6-1.0) 5.7 mg/dL (0.6-1.0) Estimated GFR (Cockcroft-Gault) 8.8 7.9 BUN/Creatinine Ratio 7 (6-20) 9 (6-20) Glucose Level 223 mg/dL (70-99) 236 mg/dL (70-99) Calcium Level < 5.0 mg/dL (8.5-10.1) < 5.0 mg/dL (8.5-10.1) Phosphorus Level 4.4 mg/dL (2.6-4.7) 4.5 mg/dL (2.6-4.7) Magnesium Level 1.3 mg/dL (1.8-2.4) 1.4 mg/dL (1.8-2.4) Total Bilirubin 1.0 mg/dL (0.2-1.0) 0.7 mg/dL (0.2-1.0) Aspartate Amino Transf (AST/SGOT) 127 U/L (15-37) 111 U/L (15-37) Alanine Aminotransferase (ALT/SGPT) 103 U/L (14-59) 84 U/L (14-59) Alkaline Phosphatase 57 U/L (46-116) 57 U/L (46-116) Total Protein 3.7 g/dL (6.4-8.2) 4.3 g/dL (6.4-8.2) Albumin 1.8 g/dL (3.4-5.0) 1.5 g/dL (3.4-5.0) Albumin/Globulin Ratio 0.9 (1.0-1.7) 0.5 (1.0-1.7) Glucose (Fingerstick) 204 mg/dL (70-99) 201 mg/dL (70-99) White Blood Count 18.1 x10^3/uL (4.0-11.0) Red Blood Count 3.53 x10^6/uL (3.50-5.40) Hemoglobin 11.7 g/dL (12.0-15.5) Hematocrit 34.8 % (36.0-47.0) Mean Corpuscular Volume 99 fL (79-100) Mean Corpuscular Hemoglobin 33 pg (25-35) Mean Corpuscular Hemoglobin Concent 34 g/dL (31-37) Red Cell Distribution Width 13.7 % (11.5-14.5) Platelet Count 162 x10^3/uL (140-400) Neutrophils (%) (Auto) 88 % (31-73) Lymphocytes (%) (Auto) 7 % (24-48) Monocytes (%) (Auto) 5 % (0-9) Eosinophils (%) (Auto) 0 % (0-3) Basophils (%) (Auto) 0 % (0-3) Neutrophils # (Auto) 16.0 x10^3/uL (1.8-7.7) Lymphocytes # (Auto) 1.2 x10^3/uL (1.0-4.8) Monocytes # (Auto) 0.8 x10^3/uL (0.0-1.1) Eosinophils # (Auto) 0.0 x10^3/uL (0.0-0.7) Basophils # (Auto) 0.0 x10^3/uL (0.0-0.2) Test 07/07/19 11:25 07/07/19 11:26 O2 Saturation 96 % (92-99) Arterial Blood pH 7.40 (7.35-7.45) Arterial Blood pCO2 at Patient Temp 40 mmHg (35-46) Arterial Blood pO2 at Patient Temp 84 mmHg (75-108) Arterial Blood HCO3 25 mmol/L (21-28) Arterial Blood Base Excess 0 mmol/L (-3-3) FiO2 45 Glucose (Fingerstick) 176 mg/dL (70-99) Assessment and Plan Assessmemt and Plan Problems Medical Problems: (1) Acute pancreatitis Status: Acute (2) Cholelithiasis Status: Acute Severe Acute pancreatitis Acute kidney failure now requiring dialysis Salpingo--itis Gallstones (Calculus of gallbladder with acute cholecystitis without obstruction) HTN Leukocytosis Hypoxia Uterine fibroid Hypoxia with respiratory failure Intractable pain Intractable nausea Plan Hemodialysis BiPAP ICU monitoring Trend labs especially white count and lipase levels We have consulted GI and general surgery I consulted GRI[employer]SELOR as well IV antibiotics IV fluids TN narcotics When necessary anti-medics Home meds if possible DVT prophylaxis Full code She is critically ill Total time 32 minutes Comment Review of Relevant I have reviewed the following items kolby (where applicable) has been applied. Medications: Current Medications Medications (Trade) Dose Ordered Sig/Yvon Route PRN Reason Start Time Stop Time Status Last Admin Dose Admin Meropenem 500 mg/ Sodium Chloride 50 ml @ 100 mls/hr Q12HR IV 07/06/19 18:00 07/07/19 09:27 Info (Tpn Per Pharmacy) 1 each PRN DAILY PRN MC SEE COMMENTS 07/06/19 12:00 07/06/19 12:43 Sodium Chloride 90 meq/Calcium Gluconate 10 meq/ Multivitamins 10 ml/Chromium/ Copper/Manganese/ Seleni/Zn 0.5 ml/ Total Parenteral Nutrition/Amino Acids/Dextrose/ Fat Emulsion Intravenous 1,512 ml @ 63 mls/hr TPN CONT IV 07/06/19 22:00 07/07/19 21:59 07/06/19 22:06 Calcium Gluconate (Calcium Gluconate) 2,000 mg 1X ONCE IVP 07/07/19 02:15 07/07/19 02:16 DC 07/07/19 02:19 Calcium Chloride 3000 mg/Sodium Chloride 1,030 ml @ 50 mls/hr [id number] IV 07/07/19 08:00 07/07/19 08:26 Lorazepam (Ativan Inj) 1 mg PRN Q4HRS PRN IVP ANXIETY / AGITATION 07/07/19 09:00 07/07/19 09:05 Digoxin (Lanoxin) 500 mcg 1X ONCE IV 07/07/19 10:00 07/07/19 10:01 DC 07/07/19 10:04 Hemodynamically unstable?: No Is patient in severe pain?: Yes Is NPO status required?: Yes BEBO KIRBY III DO Jul 07, 2019 11:35
--- NOTE | 2019-07-07 11:52 | NUR ---
SS following up with discharge planning. Pt is in ICU at this time. Per RN, pt is now on BIPAP. HCFS continuing to follow for self pay status.
[2019-07-07] MEDS: TPN PER PHARMACY MC PRN (12:32)
--- NOTE | 2019-07-07 12:32 | NUR ---
Pharmacy TPN Dosing Note S: SCOTT AVILA is a 48 year old F Currently receiving Central Continuous TPN started 07/06/19 B:Pertinent PMH: Necrotizing pancreatitis Height: 5 feet, 8 inches Weight: 95.2 kg Current diet: NPO LABS: Sodium: 139 Potassium: 3.8 Chloride: 103 Calcium: 5.0 Corrected Calcium: 7.00 Magnesium: 1.4 CO2: 23 SCr: 5.7 Glucose: 236, 201, 176 Albumin: 1.5 AST: 111 ALT: 84 TPN FORMULA: TPN TYPE: Central Continuous AMINO ACIDS: 60 gm DEXTROSE: 195 gm LIPIDS: 20 gm SODIUM CHLORIDE: 90 mEq MAGNESIUM: 10 mEq CALCIUM: 20 mEq MULTIPLE VITAMIN: 10 ml TRACE ELEMENTS: 0.5 ml TPN PLAN: -Serum calcium still not detectable, starting calcium gluc drip for delivery of 3g in 20 hrs. Increase calcium gluconate in TPN to 20 mEq/day. -Serum mag low, give mag sulfate 4g bolus. Add mag sulfate 10 mEq to TPN. -BMP, mag, phos, triglycerides tomorrow. R: Continue TPN @ current rate and above formula. Will monitor electrolytes, glucose, and tolerance to TPN. SHARON CHRISTIANSON [facility], 07/07/19 1118
--- NOTE | 2019-07-07 12:41 | PDOC ---
Renal-Progress Notes Subjective Notes Notes AWAKE AND ALERT ON BIPAP History of Present Illness Hx of present illness NO CHANGES Vitals Vitals Vital Signs Date Time Temp Pulse Resp B/P (MAP) Pulse Ox O2 Delivery O2 Flow Rate FiO2 07/07/19 12:00 100.1 138 22 148/80 (102) 97 BiPAP/CPAP 100.1 07/07/19 05:53 6.0 Weight Weight [ ] I.O. Intake and Output Intake and Output 07/07/19 07:00 Intake Total 4138 ml Output Total 85 ml Balance 4053 ml IV Total 4138 ml Output Urine Total 85 ml Labs Labs Laboratory Tests Test 07/06/19 17:20 07/06/19 17:26 07/07/19 00:23 07/07/19 00:55 Ionized Calcium 0.64 mmol/L (1.13-1.32) Glucose (Fingerstick) 99 mg/dL (70-99) O2 Saturation 95 % (92-99) Arterial Blood pH 7.32 (7.35-7.45) Arterial Blood pH (Temp corrected) 7.30 Arterial Blood pCO2 at Patient Temp 40 mmHg (35-46) Arterial Blood pCO2 (Temp correct) 42 mmHg Arterial Blood pO2 at Patient Temp 79 mmHg (75-108) Arterial Blood pO2 (Temp corrected) 85 mmHg Arterial Blood HCO3 20 mmol/L (21-28) Arterial Blood Base Excess -6 mmol/L (-3-3) FiO2 60 Sodium Level 140 mmol/L (136-145) Potassium Level 3.8 mmol/L (3.5-5.1) Chloride Level 104 mmol/L (98-107) Carbon Dioxide Level 25 mmol/L (21-32) Anion Gap 11 (6-14) Blood Urea Nitrogen 38 mg/dL (7-20) Creatinine 5.2 mg/dL (0.6-1.0) Estimated GFR (Cockcroft-Gault) 8.8 BUN/Creatinine Ratio 7 (6-20) Glucose Level 223 mg/dL (70-99) Calcium Level < 5.0 mg/dL (8.5-10.1) Phosphorus Level 4.4 mg/dL (2.6-4.7) Magnesium Level 1.3 mg/dL (1.8-2.4) Total Bilirubin 1.0 mg/dL (0.2-1.0) Aspartate Amino Transf (AST/SGOT) 127 U/L (15-37) Alanine Aminotransferase (ALT/SGPT) 103 U/L (14-59) Alkaline Phosphatase 57 U/L (46-116) Total Protein 3.7 g/dL (6.4-8.2) Albumin 1.8 g/dL (3.4-5.0) Albumin/Globulin Ratio 0.9 (1.0-1.7) Test 07/07/19 00:58 07/07/19 06:15 07/07/19 06:18 07/07/19 11:25 Glucose (Fingerstick) 204 mg/dL (70-99) 201 mg/dL (70-99) White Blood Count 18.1 x10^3/uL (4.0-11.0) Red Blood Count 3.53 x10^6/uL (3.50-5.40) Hemoglobin 11.7 g/dL (12.0-15.5) Hematocrit 34.8 % (36.0-47.0) Mean Corpuscular Volume 99 fL (79-100) Mean Corpuscular Hemoglobin 33 pg (25-35) Mean Corpuscular Hemoglobin Concent 34 g/dL (31-37) Red Cell Distribution Width 13.7 % (11.5-14.5) Platelet Count 162 x10^3/uL (140-400) Neutrophils (%) (Auto) 88 % (31-73) Lymphocytes (%) (Auto) 7 % (24-48) Monocytes (%) (Auto) 5 % (0-9) Eosinophils (%) (Auto) 0 % (0-3) Basophils (%) (Auto) 0 % (0-3) Neutrophils # (Auto) 16.0 x10^3/uL (1.8-7.7) Lymphocytes # (Auto) 1.2 x10^3/uL (1.0-4.8) Monocytes # (Auto) 0.8 x10^3/uL (0.0-1.1) Eosinophils # (Auto) 0.0 x10^3/uL (0.0-0.7) Basophils # (Auto) 0.0 x10^3/uL (0.0-0.2) Sodium Level 139 mmol/L (136-145) Potassium Level 3.8 mmol/L (3.5-5.1) Chloride Level 103 mmol/L (98-107) Carbon Dioxide Level 23 mmol/L (21-32) Anion Gap 13 (6-14) Blood Urea Nitrogen 52 mg/dL (7-20) Creatinine 5.7 mg/dL (0.6-1.0) Estimated GFR (Cockcroft-Gault) 7.9 BUN/Creatinine Ratio 9 (6-20) Glucose Level 236 mg/dL (70-99) Calcium Level < 5.0 mg/dL (8.5-10.1) Phosphorus Level 4.5 mg/dL (2.6-4.7) Magnesium Level 1.4 mg/dL (1.8-2.4) Total Bilirubin 0.7 mg/dL (0.2-1.0) Aspartate Amino Transf (AST/SGOT) 111 U/L (15-37) Alanine Aminotransferase (ALT/SGPT) 84 U/L (14-59) Alkaline Phosphatase 57 U/L (46-116) Total Protein 4.3 g/dL (6.4-8.2) Albumin 1.5 g/dL (3.4-5.0) Albumin/Globulin Ratio 0.5 (1.0-1.7) O2 Saturation 96 % (92-99) Arterial Blood pH 7.40 (7.35-7.45) Arterial Blood pCO2 at Patient Temp 40 mmHg (35-46) Arterial Blood pO2 at Patient Temp 84 mmHg (75-108) Arterial Blood HCO3 25 mmol/L (21-28) Arterial Blood Base Excess 0 mmol/L (-3-3) FiO2 45 Test 07/07/19 11:26 Glucose (Fingerstick) 176 mg/dL (70-99) Micro Micro Microbiology 07/06/19 Blood Culture - Preliminary, Resulted NO GROWTH AFTER 1 DAY Review of Systems Constitutional: yes: other (DIFFICULT TO OBTAIN) Physical Exam General Appearance: moderate distress Skin: warm Respiratory: decreased breath sounds Heart: S1S2 Abdomen: soft, bowel sounds present Genitourinary: bladder flat Extremities: pulses present Neurology: alert Assessment Assessment IMP [id number] HYPERKALEMIA-BETTER ACIDOSIS AND ACIDEMIA ACUTE REPS FAILURE ACUTE PANCREATITIS HYPOALBUMINEMIA HYPOCALCEMIA PLAN TPN CALCIUM REPLACEMENT HD TO CORRECT ACID BASE AND LYTES WILL USE HIGH HCO3 DIALYSATE CONT HCO3 GTT ON BIPAP WILL PROB NEED VENT SUPPORT D/W DR BEE WILL FOLLOW DONI GARCIA MD Jul 07, 2019 12:41
[2019-07-07] MEDS ORDERED: MAGNESIUM SULFATE 4GM 100 ML IV ONE (13:00)
[2019-07-07 16:53] LABS: BASE EXCESS ABG 0 mmol/L (-3-3); HCO3 ABG 23 mmol/L (21-28); PCO2 ABG 33 mmHg (35-46); PO2 ABG 88 mmHg (75-108); SAT O2 ABG 97 % (92-99)
[2019-07-07 16:56] LABS: FIO2 ABG 60
[2019-07-07] MEDS ORDERED: AMINO ACID IV SCH ×8 (22:00)
[2019-07-07] MEDS ORDERED: TOTAL PARENTERAL NUTRITION IV SCH ×8 (22:00)
[2019-07-07] MEDS ORDERED: DEXTROSE 70% IV SCH ×8 (22:00)
[2019-07-07] MEDS ORDERED: [UNRECOGNIZED DRUG - OTHER] IV SCH ×8 (22:00)
[2019-07-08] VITALS (27 sets, daily range): BP systolic 81–130; BP diastolic 4–81
[2019-07-08] MEDS: METOPROLOL TARTRATE 5 MG/5 ML VIAL. IVP SCH ×5 (00:07→23:12)
[2019-07-08] MEDS: INSULIN LISPRO 300 UNITS/3 ML VIAL. SQ SCH ×5 (00:26→23:17)
[2019-07-08] MEDS: SODIUM BICARBONATE VIAL 50 MEQ in IV 1/2 NORMAL SALINE 1,000 ML IV SCH ×3 (01:08→21:01)
[2019-07-08] MEDS: HYDROmorphone 2 MG/ML VIAL IV PRN ×6 (03:33→23:12)
[2019-07-08] MEDS: NORMAL SALINE IV SCH (04:26)
[2019-07-08] MEDS: CALCIUM CHLORIDE IV SCH (04:26)
[2019-07-08 07:08] LABS: BASO % 0 % (0-3); EOS # 0.1 x10^3/uL (0.0-0.7); EOS % 0 % (0-3); HEMOGLOBIN 10.8 g/dL (12.0-15.5); LYMPH # 0.8 x10^3/uL (1.0-4.8); LYMPH % 5 % (24-48); MEAN CORPUSCULAR HEMOGLOBIN 33 pg (25-35); MEAN CORPUSCULAR HGB CONC 34 g/dL (31-37); MEAN CORPUSCULAR VOLUME 98 fL (79-100); MONO # 0.7 x10^3/uL (0.0-1.1); MONO % 4 % (0-9); NEUT # 15.3 x10^3/uL (1.8-7.7); NEUT % 91 % (31-73); PLATELET COUNT 141 x10^3/uL (140-400); RED BLOOD COUNT 3.26 x10^6/uL (3.50-5.40); RED CELL DISTRIBUTION WIDTH 13.4 % (11.5-14.5); WHITE BLOOD COUNT 16.8 x10^3/uL (4.0-11.0)
[2019-07-08 07:33] LABS: ALBUMIN/GLOBULIN RATIO 0.4 (1.0-1.7); ALK PHOS 55 U/L (46-116); ALT (SGPT) 45 U/L (14-59); AST (SGOT) 56 U/L (15-37); CARBON DIOXIDE 22 mmol/L (21-32); CHLORIDE 103 mmol/L (98-107); TOTAL BILIRUBIN 0.5 mg/dL (0.2-1.0); TOTAL PROTEIN 3.8 g/dL (6.4-8.2)
--- NOTE | 2019-07-08 07:34 | PDOC ---
Infectious Disease Note Subjective: Subjective pt cont to remain on bipap c/o abdo pain but under control with pain meds d/w rn Vital Signs: Vital Signs Vital Signs Date Time Temp Pulse Resp B/P (MAP) Pulse Ox O2 Delivery O2 Flow Rate FiO2 07/08/19 06:00 123 24 124/48 (73) 100 BiPAP/CPAP 07/08/19 04:03 6.0 07/08/19 04:00 98.4 98.4 Physical Exam: PHYSICAL EXAM GENERAL: pt on bipap, Lethargic, alert, awake, ill-appearing female in ICU bed, cooperative. HEENT: Normocephalic, atraumatic. Mild icterus. No thrush. Oral mucosa dry. NECK: Supple. Temp HDC cath in place LUNGS: Decreased breath sounds at the bases. No wheezing. HEART: S1, S2, tachycardia. No murmurs. ABDOMEN: Soft, mildly distended. Mild tenderness on deep palpation upper abdomen. No rebound, no guarding. EXTREMITIES: + edema, no cyanosis. DERMATOLOGIC: Warm and dry. No generalized rash. PICC line in right upper extremity looks okay. CENTRAL NERVOUS SYSTEM: Alert and oriented x 3, grossly nonfocal. PSYCHIATRIC: Cooperative. Medications: Inpatient Meds: Current Medications Medications (Trade) Dose Ordered Sig/Yvon Start Time Stop Time Status Last Admin Dose Admin Albumin Human 200 ml @ 200 mls/hr 1X PRN PRN 07/07/19 09:00 07/07/19 14:59 DC Albuterol Sulfate (Ventolin Neb Soln) 2.5 mg 1X ONCE 07/05/19 22:30 07/05/19 22:31 DC 07/06/19 00:56 2.5 MG Atenolol (Tenormin) 100 mg DAILY 07/05/19 09:00 07/04/19 20:08 DC Calcium Carbonate/ Glycine (Tums) 500 mg PRN AFTMEALHC PRN 07/06/19 17:45 Calcium Chloride 1000 mg/Sodium Chloride 110 ml @ 220 mls/hr 1X ONCE 07/05/19 22:30 07/05/19 22:59 DC 07/05/19 22:11 220 MLS/HR Calcium Chloride 3000 mg/Sodium Chloride 1,030 ml @ 50 mls/hr [id number] 07/07/19 08:00 07/08/19 04:26 50 MLS/HR Calcium Gluconate (Calcium Gluconate) 2,000 mg 1X ONCE 07/07/19 02:15 07/07/19 02:16 DC 07/07/19 02:19 2,000 MG Calcium Gluconate 1000 mg/Sodium Chloride 110 ml @ 220 mls/hr 1X ONCE 07/06/19 03:30 07/06/19 03:59 DC 07/06/19 03:21 220 MLS/HR Calcium Gluconate 2000 mg/Sodium Chloride 120 ml @ 220 mls/hr 1X ONCE 07/06/19 07:30 07/06/19 08:02 DC 07/06/19 09:05 220 MLS/HR Dextrose (Dextrose 50%-Water Syringe) 12.5 gm PRN Q15MIN PRN 07/04/19 09:30 Digoxin (Lanoxin) 125 mcg 1X ONCE 07/07/19 18:00 07/07/19 18:01 DC 07/07/19 17:10 125 MCG Diphenhydramine HCl (Benadryl) 25 mg 1X PRN PRN 07/07/19 09:00 07/08/19 08:59 Fentanyl Citrate (Fentanyl 2ml Vial) 100 mcg STK-MED ONCE 07/04/19 03:18 07/04/19 03:18 DC Furosemide (Lasix) 40 mg 1X ONCE 07/05/19 22:30 07/05/19 22:31 DC 07/05/19 22:12 40 MG Hydromorphone HCl (Dilaudid) 1 mg PRN Q3HRS PRN 07/05/19 12:00 07/08/19 03:33 1 MG Info (CONTRAST GIVEN -- Rx MONITORING) 1 each PRN DAILY PRN 07/05/19 17:00 07/07/19 16:59 DC Info (PHARMACY MONITORING -- do not chart) 1 each PRN DAILY PRN 07/07/19 09:00 Info (Tpn Per Pharmacy) 1 each PRN DAILY PRN 07/06/19 12:30 UNV Insulin Human Lispro (HumaLOG) 0-9 UNITS Q6HRS 07/04/19 09:30 07/08/19 07:22 4 UNITS Insulin Human Regular (HumuLIN R VIAL) 5 unit 1X ONCE 07/05/19 22:30 3/17/20 22:31 DC 07/05/19 22:14 5 UNIT Iohexol (Omnipaque 300 Mg/ml) 60 ml 1X ONCE 07/05/19 17:00 07/05/19 17:01 DC 07/05/19 17:20 60 ML Iohexol (Omnipaque 350 Mg/ml) 90 ml 1X ONCE 07/04/19 03:30 07/04/19 03:31 DC 07/04/19 03:25 90 ML Ketorolac Tromethamine (Toradol 30mg Vial) 30 mg 1X ONCE 07/04/19 03:00 07/04/19 03:01 DC 07/04/19 02:54 30 MG Lidocaine HCl (Buffered Lidocaine 1%) 6 ml 1X ONCE 07/06/19 10:15 07/06/19 10:16 DC 07/06/19 10:26 4 ML Lidocaine HCl (Xylocaine-Mpf 1% 2ml Vial) 2 ml STK-MED ONCE 07/06/19 08:47 07/06/19 08:47 DC Lorazepam (Ativan Inj) 1 mg PRN Q4HRS PRN 07/07/19 09:00 07/08/19 04:26 1 MG Magnesium Sulfate 100 ml @ 25 mls/hr 1X ONCE 07/07/19 13:00 07/07/19 16:59 DC 07/07/19 12:48 25 MLS/HR Meropenem 1 gm/ Sodium Chloride 100 ml @ 200 mls/hr Q8HRS 07/05/19 20:00 07/06/19 08:48 DC 07/06/19 05:45 200 MLS/HR Meropenem 500 mg/ Sodium Chloride 50 ml @ 100 mls/hr Q12HR 07/06/19 18:00 07/07/19 22:25 100 MLS/HR Metoprolol Tartrate (Lopressor Vial) 5 mg Q6HRS 07/05/19 10:15 07/08/19 05:52 5 MG Morphine Sulfate (Morphine Sulfate) 2 mg PRN Q2HR PRN 07/04/19 05:00 07/05/19 14:15 DC 07/05/19 12:26 2 MG Norepinephrine Bitartrate 8 mg/ Dextrose 258 ml @ 17.299 mls/ hr CONT PRN 07/05/19 15:30 07/06/19 11:34 13.44 MLS/HR Ondansetron HCl (Zofran) 4 mg PRN Q4HRS PRN 07/04/19 09:30 07/06/19 23:56 4 MG Pantoprazole Sodium (PROTONIX VIAL for IV PUSH) 40 mg DAILYAC 07/04/19 11:30 07/07/19 09:27 40 MG Piperacillin Sod/ Tazobactam Sod 4.5 gm/Sodium Chloride 100 ml @ 200 mls/hr 1X ONCE 07/04/19 06:00 07/04/19 06:29 DC 07/04/19 05:44 200 MLS/HR Prochlorperazine Edisylate (Compazine) 10 mg PRN Q6HRS PRN 07/04/19 17:45 07/05/19 00:42 10 MG Sodium Bicarbonate 50 meq/Sodium Chloride 1,050 ml @ 200 mls/hr Q5H15M 07/06/19 07:30 07/08/19 07:19 200 MLS/HR Sodium Chloride 90 meq/Calcium Gluconate 10 meq/ Multivitamins 10 ml/Chromium/ Copper/Manganese/ Seleni/Zn 0.5 ml/ Total Parenteral Nutrition/Amino Acids/Dextrose/ Fat Emulsion Intravenous 1,512 ml @ 63 mls/hr TPN CONT 07/06/19 22:00 07/07/19 21:59 DC 07/06/19 22:06 63 MLS/HR Sodium Chloride 90 meq/Calcium Gluconate 10 meq/ Multivitamins 10 ml/Chromium/ Copper/Manganese/ Seleni/Zn 1 ml/ Total Parenteral Nutrition/Amino Acids/Dextrose/ Fat Emulsion Intravenous 55.005 ml @ 2.292 mls/hr TPN CONT 07/06/19 22:00 07/06/19 12:33 DC Sodium Chloride 90 meq/Magnesium Sulfate 10 meq/ Calcium Gluconate 20 meq/ Multivitamins 10 ml/Chromium/ Copper/Manganese/ Seleni/Zn 0.5 ml/ Total Parenteral Nutrition/Amino Acids/Dextrose/ Fat Emulsion Intravenous 1,512 ml @ 63 mls/hr TPN CONT 07/07/19 22:00 07/08/19 21:59 07/07/19 22:25 63 MLS/HR Labs: Lab Laboratory Tests Test 07/07/19 11:25 07/07/19 11:26 3/19/20 16:45 07/07/19 17:07 O2 Saturation 96 % (92-99) 97 % (92-99) Arterial Blood pH 7.40 (7.35-7.45) 7.46 (7.35-7.45) Arterial Blood pCO2 at Patient Temp 40 mmHg (35-46) 33 mmHg (35-46) Arterial Blood pO2 at Patient Temp 84 mmHg (75-108) 88 mmHg (75-108) Arterial Blood HCO3 25 mmol/L (21-28) 23 mmol/L (21-28) Arterial Blood Base Excess 0 mmol/L (-3-3) 0 mmol/L (-3-3) FiO2 45 60 Glucose (Fingerstick) 176 mg/dL (70-99) 237 mg/dL (70-99) Test 07/08/19 00:21 07/08/19 06:00 07/08/19 06:04 Glucose (Fingerstick) 259 mg/dL (70-99) 218 mg/dL (70-99) White Blood Count 16.8 x10^3/uL (4.0-11.0) Red Blood Count 3.26 x10^6/uL (3.50-5.40) Hemoglobin 10.8 g/dL (12.0-15.5) Hematocrit 32.0 % (36.0-47.0) Mean Corpuscular Volume 98 fL (79-100) Mean Corpuscular Hemoglobin 33 pg (25-35) Mean Corpuscular Hemoglobin Concent 34 g/dL (31-37) Red Cell Distribution Width 13.4 % (11.5-14.5) Platelet Count 141 x10^3/uL (140-400) Neutrophils (%) (Auto) 91 % (31-73) Lymphocytes (%) (Auto) 5 % (24-48) Monocytes (%) (Auto) 4 % (0-9) Eosinophils (%) (Auto) 0 % (0-3) Basophils (%) (Auto) 0 % (0-3) Neutrophils # (Auto) 15.3 x10^3/uL (1.8-7.7) Lymphocytes # (Auto) 0.8 x10^3/uL (1.0-4.8) Monocytes # (Auto) 0.7 x10^3/uL (0.0-1.1) Eosinophils # (Auto) 0.1 x10^3/uL (0.0-0.7) Basophils # (Auto) 0.0 x10^3/uL (0.0-0.2) Objective: Assessment: Acute pancreatitis, early developing necrosis Cholelithiasis Leucocytosis JUANA,Hyperkalemia, Metabolic acidosis on HD Acute hypoxic resp failure ,bilateral pleural effusion hypocalcemia Prediabetes HTN Plan: Plan of Care cont merrem ,renal dosing, f/u labs and cults cont supportive care d/w YUNIOR CARRILLO MD Jul 08, 2019 07:34
[2019-07-08 07:35] LABS: MAGNESIUM 1.9 mg/dL (1.8-2.4); PHOSPHORUS 2.5 mg/dL (2.6-4.7)
[2019-07-08 07:45] LABS: ANION GAP 14 (6-14); BLOOD UREA NITROGEN 41 mg/dL (7-20); BUN/CREATININE RATIO 8 (6-20); GFR 9.2; GLUCOSE 219 mg/dL (70-99); SODIUM 139 mmol/L (136-145)
[2019-07-08 07:47] LABS: CALCIUM < 5.0 mg/dL (8.5-10.1)
[2019-07-08 07:48] LABS: POTASSIUM 2.4 mmol/L (3.5-5.1)
[2019-07-08] MEDS ORDERED: IV NORMAL SALINE 1000ML BAG 1,000 ML IV PRN ×2 (08:05)
[2019-07-08] MEDS ORDERED: DIALYSIS PATIENT. MC PRN (08:15)
[2019-07-08] MEDS ORDERED: diphenhydrAMINE 50 MG/ML VIAL IV PRN ×2 (08:15)
[2019-07-08] MEDS ORDERED: ALBUMIN HUMAN 25% 200 ML IV ONE (08:15)
[2019-07-08] MEDS: MEROPENEM 500 MG in IV NORMAL SALINE 50ML 50 ML IV SCH ×2 (08:20→21:01)
[2019-07-08] MEDS: PANTOPRAZOLE IV PUSH 40 MG VIAL. IVP SCH (08:20)
--- NOTE | 2019-07-08 08:39 | RAD ---
CHEST AP ONLY Clinical History: Pulmonary edema Technique: AP view of the chest was obtained at 07/08/2019 8:13 AM. Comparison: July 06, 2019. Findings: The heart is normal size. The pulmonary vessels appear congested and there is hazy opacity in the lung bases and obscuration of the diaphragm left worse than right. The right jugular line and right PICC are unchanged. Impression: Moderate pleural effusions bilaterally and vascular congestion and pulmonary infiltrates likely secondary to CHF. No change. Electronically signed by: Robbie Toure III, MD (07/08/2019 8:37 AM) [id number]
[2019-07-08 08:55] LABS: BASE EXCESS ABG -2 mmol/L (-3-3); HCO3 ABG 24 mmol/L (21-28); PCO2 ABG 43 mmHg (35-46); PO2 ABG 51 mmHg (75-108); SAT O2 ABG 84 % (92-99)
[2019-07-08 09:02] LABS: FIO2 ABG BIPAP 60%
--- NOTE | 2019-07-08 09:30 | NUR ---
dialysis being done at the bedside. criticals were called to dr chu earlier. pt arterial line not working. removed. anethesia attempted on right wrist, unsuccessful by dr. nelson. call placed to dr mckoy in regards to needing more iv sites and new arterial line. levophed infusing to maintain sbp greater than 90. spoke to boyfriend aquilino on phone and updated on condition. boyfriend stated that pt requested him to make decisions for her, but nothing in in writing.
--- NOTE | 2019-07-08 09:43 | PDOC ---
Objective: Objective: D/w nurse - hypotensive, c/o abd pain, concerned w/ hypocalcemia and hypok alemia. Looks like changed to PPI QD (from BID). Vital Signs: Vital Signs Date Time Temp Pulse Resp B/P (MAP) Pulse Ox O2 Delivery O2 Flow Rate FiO2 07/08/19 08:50 BiPAP/CPAP 07/08/19 08:30 31 100 07/08/19 07:01 102/44 (63) 07/08/19 07:00 98.2 127 98.2 07/08/19 04:03 6.0 Labs: Laboratory Tests Test 07/07/19 11:26 07/07/19 17:07 07/08/19 00:21 07/08/19 06:04 Glucose (Fingerstick) 176 mg/dL (70-99) 237 mg/dL (70-99) 259 mg/dL (70-99) 218 mg/dL (70-99) Imaging: CXR 07/07 Impression: Moderate pleural effusions bilaterally and vascular congestion and pulmonary infiltrates likely secondary to CHF. No change. PE: GEN: ill - staff present for dialysis and to place art line LUNGS: BiPAP HEART: tachycardic on monitor A/P: Gallstone pancreatitis w/ necrosis and MOSF -- Continue supportive care. Hemodynamically unstable?: Yes Is patient in severe pain?: Yes Is NPO status required?: Yes CYNDEE FALCON Jul 08, 2019 09:43
--- NOTE | 2019-07-08 10:56 | PDOC ---
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 [employer]LYST 07/08/19 1056: SURGICAL PROGRESS NOTE Subjective bipap lethargic during exam Vital Signs Vital Signs Date Time Temp Pulse Resp B/P (MAP) Pulse Ox O2 Delivery O2 Flow Rate FiO2 07/08/19 10:00 115 25 104/71 (82) 100 BiPAP/CPAP 07/08/19 07:00 98.2 98.2 07/08/19 04:03 6.0 I&O Intake and Output 07/08/19 07:00 Intake Total 7438.1 ml Output Total 1045 ml Balance 6393.1 ml Intake Oral 0 ml IV Total 4000.1 ml Other 3438 ml Output Urine Total 45 ml Stool Total 1000 ml PATIENT HAS A ROSARIO: Yes General: Other (ill appearing ) Abdomen: Soft, Other (mildly distended , moans when epigastric area palpated ) Labs Laboratory Tests Test 07/06/19 11:38 07/06/19 17:20 07/06/19 17:26 07/07/19 00:23 Glucose (Fingerstick) 174 mg/dL (70-99) 99 mg/dL (70-99) Ionized Calcium 0.64 mmol/L (1.13-1.32) Hepatitis B Surface Antibody, Quant <3.1 mIU/mL (Immunity>9.9) O2 Saturation 95 % (92-99) Arterial Blood pH 7.32 (7.35-7.45) Arterial Blood pH (Temp corrected) 7.30 Arterial Blood pCO2 at Patient Temp 40 mmHg (35-46) Arterial Blood pCO2 (Temp correct) 42 mmHg Arterial Blood pO2 at Patient Temp 79 mmHg (75-108) Arterial Blood pO2 (Temp corrected) 85 mmHg Arterial Blood HCO3 20 mmol/L (21-28) Arterial Blood Base Excess -6 mmol/L (-3-3) FiO2 60 Test 07/07/19 00:55 07/07/19 00:58 07/07/19 06:15 07/07/19 06:18 Sodium Level 140 mmol/L (136-145) 139 mmol/L (136-145) Potassium Level 3.8 mmol/L (3.5-5.1) 3.8 mmol/L (3.5-5.1) Chloride Level 104 mmol/L (98-107) 103 mmol/L (98-107) Carbon Dioxide Level 25 mmol/L (21-32) 23 mmol/L (21-32) Anion Gap 11 (6-14) 13 (6-14) Blood Urea Nitrogen 38 mg/dL (7-20) 52 mg/dL (7-20) Creatinine 5.2 mg/dL (0.6-1.0) 5.7 mg/dL (0.6-1.0) Estimated GFR (Cockcroft-Gault) 8.8 7.9 BUN/Creatinine Ratio 7 (6-20) 9 (6-20) Glucose Level 223 mg/dL (70-99) 236 mg/dL (70-99) Calcium Level < 5.0 mg/dL (8.5-10.1) < 5.0 mg/dL (8.5-10.1) Phosphorus Level 4.4 mg/dL (2.6-4.7) 4.5 mg/dL (2.6-4.7) Magnesium Level 1.3 mg/dL (1.8-2.4) 1.4 mg/dL (1.8-2.4) Total Bilirubin 1.0 mg/dL (0.2-1.0) 0.7 mg/dL (0.2-1.0) Aspartate Amino Transf (AST/SGOT) 127 U/L (15-37) 111 U/L (15-37) Alanine Aminotransferase (ALT/SGPT) 103 U/L (14-59) 84 U/L (14-59) Alkaline Phosphatase 57 U/L (46-116) 57 U/L (46-116) Total Protein 3.7 g/dL (6.4-8.2) 4.3 g/dL (6.4-8.2) Albumin 1.8 g/dL (3.4-5.0) 1.5 g/dL (3.4-5.0) Albumin/Globulin Ratio 0.9 (1.0-1.7) 0.5 (1.0-1.7) Glucose (Fingerstick) 204 mg/dL (70-99) 201 mg/dL (70-99) White Blood Count 18.1 x10^3/uL (4.0-11.0) Red Blood Count 3.53 x10^6/uL (3.50-5.40) Hemoglobin 11.7 g/dL (12.0-15.5) Hematocrit 34.8 % (36.0-47.0) Mean Corpuscular Volume 99 fL (79-100) Mean Corpuscular Hemoglobin 33 pg (25-35) Mean Corpuscular Hemoglobin Concent 34 g/dL (31-37) Red Cell Distribution Width 13.7 % (11.5-14.5) Platelet Count 162 x10^3/uL (140-400) Neutrophils (%) (Auto) 88 % (31-73) Lymphocytes (%) (Auto) 7 % (24-48) Monocytes (%) (Auto) 5 % (0-9) Eosinophils (%) (Auto) 0 % (0-3) Basophils (%) (Auto) 0 % (0-3) Neutrophils # (Auto) 16.0 x10^3/uL (1.8-7.7) Lymphocytes # (Auto) 1.2 x10^3/uL (1.0-4.8) Monocytes # (Auto) 0.8 x10^3/uL (0.0-1.1) Eosinophils # (Auto) 0.0 x10^3/uL (0.0-0.7) Basophils # (Auto) 0.0 x10^3/uL (0.0-0.2) Test 07/07/19 11:25 07/07/19 11:26 07/07/19 16:45 07/07/19 17:07 O2 Saturation 96 % (92-99) 97 % (92-99) Arterial Blood pH 7.40 (7.35-7.45) 7.46 (7.35-7.45) Arterial Blood pCO2 at Patient Temp 40 mmHg (35-46) 33 mmHg (35-46) Arterial Blood pO2 at Patient Temp 84 mmHg (75-108) 88 mmHg (75-108) Arterial Blood HCO3 25 mmol/L (21-28) 23 mmol/L (21-28) Arterial Blood Base Excess 0 mmol/L (-3-3) 0 mmol/L (-3-3) FiO2 45 60 Glucose (Fingerstick) 176 mg/dL (70-99) 237 mg/dL (70-99) Test 07/08/19 00:21 07/08/19 06:00 07/08/19 06:04 07/08/19 06:45 Glucose (Fingerstick) 259 mg/dL (70-99) 218 mg/dL (70-99) White Blood Count 16.8 x10^3/uL (4.0-11.0) Red Blood Count 3.26 x10^6/uL (3.50-5.40) Hemoglobin 10.8 g/dL (12.0-15.5) Hematocrit 32.0 % (36.0-47.0) Mean Corpuscular Volume 98 fL (79-100) Mean Corpuscular Hemoglobin 33 pg (25-35) Mean Corpuscular Hemoglobin Concent 34 g/dL (31-37) Red Cell Distribution Width 13.4 % (11.5-14.5) Platelet Count 141 x10^3/uL (140-400) Neutrophils (%) (Auto) 91 % (31-73) Lymphocytes (%) (Auto) 5 % (24-48) Monocytes (%) (Auto) 4 % (0-9) Eosinophils (%) (Auto) 0 % (0-3) Basophils (%) (Auto) 0 % (0-3) Neutrophils # (Auto) 15.3 x10^3/uL (1.8-7.7) Lymphocytes # (Auto) 0.8 x10^3/uL (1.0-4.8) Monocytes # (Auto) 0.7 x10^3/uL (0.0-1.1) Eosinophils # (Auto) 0.1 x10^3/uL (0.0-0.7) Basophils # (Auto) 0.0 x10^3/uL (0.0-0.2) Sodium Level 139 mmol/L (136-145) Potassium Level 2.4 mmol/L (3.5-5.1) Chloride Level 103 mmol/L (98-107) Carbon Dioxide Level 22 mmol/L (21-32) Anion Gap 14 (6-14) Blood Urea Nitrogen 41 mg/dL (7-20) Creatinine 5.0 mg/dL (0.6-1.0) Estimated GFR (Cockcroft-Gault) 9.2 BUN/Creatinine Ratio 8 (6-20) Glucose Level 219 mg/dL (70-99) Calcium Level < 5.0 mg/dL (8.5-10.1) Phosphorus Level 2.5 mg/dL (2.6-4.7) Magnesium Level 1.9 mg/dL (1.8-2.4) Total Bilirubin 0.5 mg/dL (0.2-1.0) Aspartate Amino Transf (AST/SGOT) 56 U/L (15-37) Alanine Aminotransferase (ALT/SGPT) 45 U/L (14-59) Alkaline Phosphatase 55 U/L (46-116) Total Protein 3.8 g/dL (6.4-8.2) Albumin 1.0 g/dL (3.4-5.0) Albumin/Globulin Ratio 0.4 (1.0-1.7) Triglycerides Level 214 mg/dL (0-150) Ionized Calcium < 0.25 mmol/L (1.13-1.32) Test 07/08/19 08:00 O2 Saturation 84 % (92-99) Arterial Blood pH 7.36 (7.35-7.45) Arterial Blood pCO2 at Patient Temp 43 mmHg (35-46) Arterial Blood pO2 at Patient Temp 51 mmHg (75-108) Arterial Blood HCO3 24 mmol/L (21-28) Arterial Blood Base Excess -2 mmol/L (-3-3) FiO2 Bipap 60% Laboratory Tests Test 07/07/19 11:25 07/07/19 11:26 07/07/19 16:45 07/07/19 17:07 O2 Saturation 96 % (92-99) 97 % (92-99) Arterial Blood pH 7.40 (7.35-7.45) 7.46 (7.35-7.45) Arterial Blood pCO2 at Patient Temp 40 mmHg (35-46) 33 mmHg (35-46) Arterial Blood pO2 at Patient Temp 84 mmHg (75-108) 88 mmHg (75-108) Arterial Blood HCO3 25 mmol/L (21-28) 23 mmol/L (21-28) Arterial Blood Base Excess 0 mmol/L (-3-3) 0 mmol/L (-3-3) FiO2 45 60 Glucose (Fingerstick) 176 mg/dL (70-99) 237 mg/dL (70-99) Test 07/08/19 00:21 07/08/19 06:00 07/08/19 06:04 07/08/19 06:45 Glucose (Fingerstick) 259 mg/dL (70-99) 218 mg/dL (70-99) White Blood Count 16.8 x10^3/uL (4.0-11.0) Red Blood Count 3.26 x10^6/uL (3.50-5.40) Hemoglobin 10.8 g/dL (12.0-15.5) Hematocrit 32.0 % (36.0-47.0) Mean Corpuscular Volume 98 fL (79-100) Mean Corpuscular Hemoglobin 33 pg (25-35) Mean Corpuscular Hemoglobin Concent 34 g/dL (31-37) Red Cell Distribution Width 13.4 % (11.5-14.5) Platelet Count 141 x10^3/uL (140-400) Neutrophils (%) (Auto) 91 % (31-73) Lymphocytes (%) (Auto) 5 % (24-48) Monocytes (%) (Auto) 4 % (0-9) Eosinophils (%) (Auto) 0 % (0-3) Basophils (%) (Auto) 0 % (0-3) Neutrophils # (Auto) 15.3 x10^3/uL (1.8-7.7) Lymphocytes # (Auto) 0.8 x10^3/uL (1.0-4.8) Monocytes # (Auto) 0.7 x10^3/uL (0.0-1.1) Eosinophils # (Auto) 0.1 x10^3/uL (0.0-0.7) Basophils # (Auto) 0.0 x10^3/uL (0.0-0.2) Sodium Level 139 mmol/L (136-145) Potassium Level 2.4 mmol/L (3.5-5.1) Chloride Level 103 mmol/L (98-107) Carbon Dioxide Level 22 mmol/L (21-32) Anion Gap 14 (6-14) Blood Urea Nitrogen 41 mg/dL (7-20) Creatinine 5.0 mg/dL (0.6-1.0) Estimated GFR (Cockcroft-Gault) 9.2 BUN/Creatinine Ratio 8 (6-20) Glucose Level 219 mg/dL (70-99) Calcium Level < 5.0 mg/dL (8.5-10.1) Phosphorus Level 2.5 mg/dL (2.6-4.7) Magnesium Level 1.9 mg/dL (1.8-2.4) Total Bilirubin 0.5 mg/dL (0.2-1.0) Aspartate Amino Transf (AST/SGOT) 56 U/L (15-37) Alanine Aminotransferase (ALT/SGPT) 45 U/L (14-59) Alkaline Phosphatase 55 U/L (46-116) Total Protein 3.8 g/dL (6.4-8.2) Albumin 1.0 g/dL (3.4-5.0) Albumin/Globulin Ratio 0.4 (1.0-1.7) Triglycerides Level 214 mg/dL (0-150) Ionized Calcium < 0.25 mmol/L (1.13-1.32) Test 07/08/19 08:00 O2 Saturation 84 % (92-99) Arterial Blood pH 7.36 (7.35-7.45) Arterial Blood pCO2 at Patient Temp 43 mmHg (35-46) Arterial Blood pO2 at Patient Temp 51 mmHg (75-108) Arterial Blood HCO3 24 mmol/L (21-28) Arterial Blood Base Excess -2 mmol/L (-3-3) FiO2 Bipap 60% Problem List Problems Medical Problems: (1) Acute pancreatitis Status: Acute (2) Cholelithiasis Status: Acute Assessment/Plan critical care seen on dialysis will review with MARV Staton MD 07/08/19 1418: SURGICAL PROGRESS NOTE Assessment/Plan pt seen and examined sleepy, BIPAP on mother at bedside continue supportive care no new surgical recs answered mom's questions 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 APRN Jul 08, 2019 10:56 MARV WYNNE MD Jul 08, 2019 14:18
--- NOTE | 2019-07-08 11:35 | PDOC ---
Renal-Progress Notes Subjective Notes Notes ON BIPAP IN SOME DISTRESS History of Present Illness Hx of present illness STABLE Vitals Vitals Vital Signs Date Time Temp Pulse Resp B/P (MAP) Pulse Ox O2 Delivery O2 Flow Rate FiO2 07/08/19 10:00 115 25 104/71 (82) 100 BiPAP/CPAP 07/08/19 07:00 98.2 98.2 07/08/19 04:03 6.0 Weight Weight [ ] I.O. Intake and Output Intake and Output 07/08/19 07:00 Intake Total 7438.1 ml Output Total 1045 ml Balance 6393.1 ml Intake Oral 0 ml IV Total 4000.1 ml Other 3438 ml Output Urine Total 45 ml Stool Total 1000 ml Labs Labs Laboratory Tests Test 07/07/19 16:45 07/07/19 17:07 07/08/19 00:21 07/08/19 06:00 O2 Saturation 97 % (92-99) Arterial Blood pH 7.46 (7.35-7.45) Arterial Blood pCO2 at Patient Temp 33 mmHg (35-46) Arterial Blood pO2 at Patient Temp 88 mmHg (75-108) Arterial Blood HCO3 23 mmol/L (21-28) Arterial Blood Base Excess 0 mmol/L (-3-3) FiO2 60 Glucose (Fingerstick) 237 mg/dL (70-99) 259 mg/dL (70-99) White Blood Count 16.8 x10^3/uL (4.0-11.0) Red Blood Count 3.26 x10^6/uL (3.50-5.40) Hemoglobin 10.8 g/dL (12.0-15.5) Hematocrit 32.0 % (36.0-47.0) Mean Corpuscular Volume 98 fL (79-100) Mean Corpuscular Hemoglobin 33 pg (25-35) Mean Corpuscular Hemoglobin Concent 34 g/dL (31-37) Red Cell Distribution Width 13.4 % (11.5-14.5) Platelet Count 141 x10^3/uL (140-400) Neutrophils (%) (Auto) 91 % (31-73) Lymphocytes (%) (Auto) 5 % (24-48) Monocytes (%) (Auto) 4 % (0-9) Eosinophils (%) (Auto) 0 % (0-3) Basophils (%) (Auto) 0 % (0-3) Neutrophils # (Auto) 15.3 x10^3/uL (1.8-7.7) Lymphocytes # (Auto) 0.8 x10^3/uL (1.0-4.8) Monocytes # (Auto) 0.7 x10^3/uL (0.0-1.1) Eosinophils # (Auto) 0.1 x10^3/uL (0.0-0.7) Basophils # (Auto) 0.0 x10^3/uL (0.0-0.2) Sodium Level 139 mmol/L (136-145) Potassium Level 2.4 mmol/L (3.5-5.1) Chloride Level 103 mmol/L (98-107) Carbon Dioxide Level 22 mmol/L (21-32) Anion Gap 14 (6-14) Blood Urea Nitrogen 41 mg/dL (7-20) Creatinine 5.0 mg/dL (0.6-1.0) Estimated GFR (Cockcroft-Gault) 9.2 BUN/Creatinine Ratio 8 (6-20) Glucose Level 219 mg/dL (70-99) Calcium Level < 5.0 mg/dL (8.5-10.1) Phosphorus Level 2.5 mg/dL (2.6-4.7) Magnesium Level 1.9 mg/dL (1.8-2.4) Total Bilirubin 0.5 mg/dL (0.2-1.0) Aspartate Amino Transf (AST/SGOT) 56 U/L (15-37) Alanine Aminotransferase (ALT/SGPT) 45 U/L (14-59) Alkaline Phosphatase 55 U/L (46-116) Total Protein 3.8 g/dL (6.4-8.2) Albumin 1.0 g/dL (3.4-5.0) Albumin/Globulin Ratio 0.4 (1.0-1.7) Triglycerides Level 214 mg/dL (0-150) Test 07/08/19 06:04 07/08/19 06:45 07/08/19 08:00 Glucose (Fingerstick) 218 mg/dL (70-99) Ionized Calcium < 0.25 mmol/L (1.13-1.32) O2 Saturation 84 % (92-99) Arterial Blood pH 7.36 (7.35-7.45) Arterial Blood pCO2 at Patient Temp 43 mmHg (35-46) Arterial Blood pO2 at Patient Temp 51 mmHg (75-108) Arterial Blood HCO3 24 mmol/L (21-28) Arterial Blood Base Excess -2 mmol/L (-3-3) FiO2 Bipap 60% Micro Micro Microbiology 07/06/19 Blood Culture - Preliminary, Resulted NO GROWTH AFTER 2 DAYS Review of Systems Constitutional: yes: other (DIFFICULT TO OBTAIN) Physical Exam General Appearance: moderate distress Skin: warm Respiratory: decreased breath sounds Heart: S1S2 Abdomen: soft, bowel sounds present Genitourinary: bladder flat Extremities: pulses present Neurology: alert Assessment Assessment IMP [id number]-EFUEPR HYPERKALEMIA-BETTER ACIDOSIS AND ACIDEMIA ACUTE REPS FAILURE ACUTE PANCREATITIS HYPOALBUMINEMIA HYPOCALCEMIA PLAN TPN CALCIUM REPLACEMENT HD TO CORRECT ACID BASE AND LYTES WILL USE HIGH HCO3 DIALYSATE CONT HCO3 GTT ON BIPAP WILL PROB NEED VENT SUPPORT WILL FOLLOW DONI GARCIA MD Jul 08, 2019 11:35
--- NOTE | 2019-07-08 12:07 | RAD ---
AP chest. HISTORY: Line placement AP view was taken of the chest. There is a left central line which extends to the superior vena cave or just into the atrium. EKG leads partially obscure visualization. Dialysis catheter is unchanged. Right PICC line is unchanged. There are bilateral pleural effusions. There is atelectasis or infiltrate in both lung bases. A left pneumothorax is not identified. IMPRESSION: 1. Left central line extends to the superior vena cava or just into the atrium. 2. Dialysis catheter and right PICC line are unchanged. 3. Little other change. 4. No pneumothorax. Electronically signed by: Abe Mathias MD (07/08/2019 12:04 PM) [id number]
--- NOTE | 2019-07-08 12:21 | PDOC ---
[facility] [facility] PROGRESS NOTE Chief Complaint Chief Complaint Severe Acute pancreatitis Acute kidney failure now requiring dialysis Salpingo--itis Gallstones (Calculus of gallbladder with acute cholecystitis without obstruction) HTN Leukocytosis Hypoxia Uterine fibroid Hypoxia with respiratory failure Intractable pain Intractable nausea History of Present Illness History of Present Illness [id number] Patient seen and examined in the ICU She is on BiPAP Her mother and another family member are present and seemed to be good support for her Currently on dialysis Appears critically ill Discussed with RN Reviewed chart Discussed case at length with her mother [id number] Patient seen and examined in the ICU She is now on BiPAP appears more ill Discussed with RN Chart reviewed She is now on dialysis [id number] Patient seen and examined in the ICU She appears extremely ill critically ill Discussed with RN Getting a chest x-ray now Her sats are only 87% on nasal cannula oxygen Chart reviewed Vitals/I&O Vitals/I&O: Vital Signs Date Time Temp Pulse Resp B/P (MAP) Pulse Ox O2 Delivery O2 Flow Rate FiO2 07/08/19 10:00 115 25 104/71 (82) 100 BiPAP/CPAP 07/08/19 07:00 98.2 98.2 07/08/19 04:03 6.0 I & O 07/07/19 07/07/19 07/08/19 15:00 23:00 07:00 Intake Total 50 ml 3530.8 ml 3857.3 ml Output Total 20 ml 1000 ml 25 ml Balance 30 ml 2530.8 ml 3832.3 ml Physical Exam Physical Exam: GENERAL: pt on bipap, Lethargic, alert, awake, ill-appearing female in ICU bed, cooperative. On hemodialysis now HEENT: Normocephalic, atraumatic. Mild icterus. No thrush. Oral mucosa dry. NECK: Supple. Temp HDC cath in place LUNGS: Decreased breath sounds at the bases. No wheezing. HEART: S1, S2, tachycardia. No murmurs. ABDOMEN: Soft, mildly distended. Mild tenderness on deep palpation upper abdomen. No rebound, no guarding. EXTREMITIES: + edema, no cyanosis. DERMATOLOGIC: Warm and dry. No generalized rash. PICC line in right upper extremity looks okay. CENTRAL NERVOUS SYSTEM: Extremely lethargic General: Other (ill appearing ) Heart: Other (increased rate) Lungs: Clear Abdomen: Soft, Other (mildly distended , moans when epigastric area palpated ) Extremities: No edema, Other (SOME CLUBBING ) Skin: No rashes, No breakdown, No significant lesion Labs Labs: Laboratory Tests Test 07/07/19 16:45 07/07/19 17:07 07/08/19 00:21 07/08/19 06:00 O2 Saturation 97 % (92-99) Arterial Blood pH 7.46 (7.35-7.45) Arterial Blood pCO2 at Patient Temp 33 mmHg (35-46) Arterial Blood pO2 at Patient Temp 88 mmHg (75-108) Arterial Blood HCO3 23 mmol/L (21-28) Arterial Blood Base Excess 0 mmol/L (-3-3) FiO2 60 Glucose (Fingerstick) 237 mg/dL (70-99) 259 mg/dL (70-99) White Blood Count 16.8 x10^3/uL (4.0-11.0) Red Blood Count 3.26 x10^6/uL (3.50-5.40) Hemoglobin 10.8 g/dL (12.0-15.5) Hematocrit 32.0 % (36.0-47.0) Mean Corpuscular Volume 98 fL (79-100) Mean Corpuscular Hemoglobin 33 pg (25-35) Mean Corpuscular Hemoglobin Concent 34 g/dL (31-37) Red Cell Distribution Width 13.4 % (11.5-14.5) Platelet Count 141 x10^3/uL (140-400) Neutrophils (%) (Auto) 91 % (31-73) Lymphocytes (%) (Auto) 5 % (24-48) Monocytes (%) (Auto) 4 % (0-9) Eosinophils (%) (Auto) 0 % (0-3) Basophils (%) (Auto) 0 % (0-3) Neutrophils # (Auto) 15.3 x10^3/uL (1.8-7.7) Lymphocytes # (Auto) 0.8 x10^3/uL (1.0-4.8) Monocytes # (Auto) 0.7 x10^3/uL (0.0-1.1) Eosinophils # (Auto) 0.1 x10^3/uL (0.0-0.7) Basophils # (Auto) 0.0 x10^3/uL (0.0-0.2) Sodium Level 139 mmol/L (136-145) Potassium Level 2.4 mmol/L (3.5-5.1) Chloride Level 103 mmol/L (98-107) Carbon Dioxide Level 22 mmol/L (21-32) Anion Gap 14 (6-14) Blood Urea Nitrogen 41 mg/dL (7-20) Creatinine 5.0 mg/dL (0.6-1.0) Estimated GFR (Cockcroft-Gault) 9.2 BUN/Creatinine Ratio 8 (6-20) Glucose Level 219 mg/dL (70-99) Calcium Level < 5.0 mg/dL (8.5-10.1) Phosphorus Level 2.5 mg/dL (2.6-4.7) Magnesium Level 1.9 mg/dL (1.8-2.4) Total Bilirubin 0.5 mg/dL (0.2-1.0) Aspartate Amino Transf (AST/SGOT) 56 U/L (15-37) Alanine Aminotransferase (ALT/SGPT) 45 U/L (14-59) Alkaline Phosphatase 55 U/L (46-116) Total Protein 3.8 g/dL (6.4-8.2) Albumin 1.0 g/dL (3.4-5.0) Albumin/Globulin Ratio 0.4 (1.0-1.7) Triglycerides Level 214 mg/dL (0-150) Test 07/08/19 06:04 07/08/19 06:45 07/08/19 08:00 07/08/19 11:30 Glucose (Fingerstick) 218 mg/dL (70-99) Ionized Calcium < 0.25 mmol/L (1.13-1.32) O2 Saturation 84 % (92-99) Arterial Blood pH 7.36 (7.35-7.45) Arterial Blood pCO2 at Patient Temp 43 mmHg (35-46) Arterial Blood pO2 at Patient Temp 51 mmHg (75-108) Arterial Blood HCO3 24 mmol/L (21-28) Arterial Blood Base Excess -2 mmol/L (-3-3) FiO2 Bipap 60% Potassium Level 3.4 mmol/L (3.5-5.1) Review of Systems Review of Systems: Unable to obtain Assessment and Plan Assessmemt and Plan Problems Medical Problems: (1) Acute pancreatitis Status: Acute (2) Cholelithiasis Status: Acute Severe Acute pancreatitis Acute kidney failure now requiring dialysis Salpingo--itis Gallstones (Calculus of gallbladder with acute cholecystitis without obstruction) HTN Leukocytosis Hypoxia Uterine fibroid Hypoxia with respiratory failure Intractable pain Intractable nausea Plan Hemodialysis BiPAP ICU monitoring Trend labs especially white count and lipase levels We have consulted GI and general surgery I consulted [employer] as well IV antibiotics IV fluids SD narcotics When necessary anti-medics Home meds if possible DVT prophylaxis Full code She is critically ill Total time 36 minutes Comment Review of Relevant I have reviewed the following items kolby (where applicable) has been applied. Medications: Current Medications Medications (Trade) Dose Ordered Sig/Yvon Route PRN Reason Start Time Stop Time Status Last Admin Dose Admin Digoxin (Lanoxin) 125 mcg 1X ONCE IV 07/07/19 18:00 07/07/19 18:01 DC 07/07/19 17:10 Magnesium Sulfate 100 ml @ 25 mls/hr 1X ONCE IV 07/07/19 13:00 07/07/19 16:59 DC 07/07/19 12:48 Sodium Chloride 90 meq/Magnesium Sulfate 10 meq/ Calcium Gluconate 20 meq/ Multivitamins 10 ml/Chromium/ Copper/Manganese/ Seleni/Zn 0.5 ml/ Total Parenteral Nutrition/Amino Acids/Dextrose/ Fat Emulsion Intravenous 1,512 ml @ 63 mls/hr TPN CONT IV 07/07/19 22:00 07/08/19 21:59 07/07/19 22:25 Albumin Human 200 ml @ 200 mls/hr 1X ONCE IV 07/08/19 08:15 07/08/19 09:14 DC 07/08/19 08:57 Hemodynamically unstable?: Yes Is patient in severe pain?: Yes Is NPO status required?: Yes BEBO KIRBY III DO Jul 08, 2019 12:21
[2019-07-08 12:26] LABS: BASE EXCESS ABG 7 mmol/L (-3-3); FIO2 ABG 60; HCO3 ABG 33 mmol/L (21-28); PCO2 ABG 53 mmHg (35-46); PO2 ABG 136 mmHg (75-108); SAT O2 ABG 99 % (92-99)
--- NOTE | 2019-07-08 12:30 | NUR ---
spoke on telephone with patients eldest child, angelito ennis. discussed needing one person to be her decision maker and advocate that is legally related to the patient. pt does not have a living will or healthcare advancement. discussed pt physical and mental aspects. discussed when any consents or decisions need to be made, that this person would be contacted and would need to reply quickly. discussed that aquilino and / or bharath, the pts mother, would take over as main person to make decisions for pt. questions answered. Angelito chose to talk to her sister, Marce and will call us back with decision.
[2019-07-08] MEDS: TPN PER PHARMACY MC PRN (12:35)
--- NOTE | 2019-07-08 12:36 | NUR ---
Pharmacy TPN Dosing Note S: SCOTT AVILA is a 48 year old F Currently receiving Central Continuous TPN started 07/06/19 B:Pertinent PMH: Necrotizing pancreatitis Height: 5 feet, 8 inches Weight: 95.2 kg Current diet: NPO LABS: Sodium: 139 Potassium: 2.4/3.4 Chloride: 103 Calcium: 5.0 Corrected Calcium: 7.00 Magnesium: 1.9 CO2: 22 SCr: 5.0 Glucose: 219 Albumin: 1.5 AST: 56 ALT: 45 TPN FORMULA: TPN TYPE: Central Continuous AMINO ACIDS: 60 gm DEXTROSE: 195 gm LIPIDS: 20 gm SODIUM CHLORIDE: 90 mEq SODIUM ACETATE: -- mEq SODIUM PHOSPHATE: -- mmol POTASSIUM CHLORIDE: 15 mEq POTASSIUM ACETATE: -- mEq POTASSIUM PHOSPHATE: 10 mmol MAGNESIUM: 10 mEq CALCIUM: 20 mEq INSULIN: -- units MULTIPLE VITAMIN: 10 ml TRACE ELEMENTS: 0.5 ml(s) TPN PLAN: Serum calcium still not detectable, calcicum gluc drip for delivery of 3g in 20 hrs. K 2.4 this am, 3.4 after HD, will add 15meq KCl as well as 10mmol Kphos due to low phos; may need to correct in the am Mag has corrected BMP, mag, phos tomorrow. R: Continue TPN as written above. Will monitor electrolytes, glucose, and tolerance to TPN. PADMINI YOUNG RPH, 07/08/19 [id number]
--- NOTE | 2019-07-08 12:45 | NUR ---
pts eldest daughter angelito called and said she will remain the main decision maker for her mother with Marce Diaz, the second child, as the secondary decision maker. Notified Viri of her decision.
--- NOTE | 2019-07-08 13:30 | NUR ---
dialysis completed with 3 kilo's removed from pt. pt perineal area cleansed. pt taken off of bipap and teeth brushed and mouth cleansed and lubricated. pt not moving air well on her own, pt o2 sat desaturated to the low 80's. bipap placed back on pt and pt recovered in 5 minutes. pt able to communicate that she is having abdominal pain. She was able to rate it a "8" on the scale of 1 to 10 with 10 severe. pt given iv dilaudid. discussed with dr boss about pt coughed up green bile while doing oral care. pt to receive ng tube today with lis. pt moved to room 114 to be isolated on unit. pt tolerated well.
[2019-07-08] MEDS ORDERED: POTASSIUM CHLORIDE 20MEQ 100 ML IV ONE (14:00)
[2019-07-08] MEDS ORDERED: BENZOCAINE ONE 20% MUCOSAL SPRAY. MM (14:30)
[2019-07-08] MEDS ORDERED: LIDOCAINE 2% JELLY 6ML IN APPLICATOR. MM ONE (14:30)
--- NOTE | 2019-07-08 15:28 | PDOC ---
PULMONARY PROGRESS NOTES Subjective SLEEPY BUT AROUSABLE ON BIPAP HR IS BETTER Vitals Vital Signs Date Time Temp Pulse Resp B/P (MAP) Pulse Ox O2 Delivery O2 Flow Rate FiO2 07/08/19 15:00 128 17 105/55 (72) 100 BiPAP/CPAP 07/08/19 14:00 100.3 100.3 07/08/19 04:03 6.0 ROS: No Nausea, No Chest Pain, No Increase Cough General: Alert Lungs: Clear Cardiovascular: S1, S2 Abdomen: Other (DISTENDED AND DIFFUSE PAIN) Neuro Exam: Alert Extremities: No Edema Skin: Warm Labs Laboratory Tests Test 07/06/19 17:20 07/06/19 17:26 07/07/19 00:23 07/07/19 00:55 Ionized Calcium 0.64 mmol/L (1.13-1.32) Hepatitis B Surface Antibody, Quant <3.1 mIU/mL (Immunity>9.9) Glucose (Fingerstick) 99 mg/dL (70-99) O2 Saturation 95 % (92-99) Arterial Blood pH 7.32 (7.35-7.45) Arterial Blood pH (Temp corrected) 7.30 Arterial Blood pCO2 at Patient Temp 40 mmHg (35-46) Arterial Blood pCO2 (Temp correct) 42 mmHg Arterial Blood pO2 at Patient Temp 79 mmHg (75-108) Arterial Blood pO2 (Temp corrected) 85 mmHg Arterial Blood HCO3 20 mmol/L (21-28) Arterial Blood Base Excess -6 mmol/L (-3-3) FiO2 60 Sodium Level 140 mmol/L (136-145) Potassium Level 3.8 mmol/L (3.5-5.1) Chloride Level 104 mmol/L (98-107) Carbon Dioxide Level 25 mmol/L (21-32) Anion Gap 11 (6-14) Blood Urea Nitrogen 38 mg/dL (7-20) Creatinine 5.2 mg/dL (0.6-1.0) Estimated GFR (Cockcroft-Gault) 8.8 BUN/Creatinine Ratio 7 (6-20) Glucose Level 223 mg/dL (70-99) Calcium Level < 5.0 mg/dL (8.5-10.1) Phosphorus Level 4.4 mg/dL (2.6-4.7) Magnesium Level 1.3 mg/dL (1.8-2.4) Total Bilirubin 1.0 mg/dL (0.2-1.0) Aspartate Amino Transf (AST/SGOT) 127 U/L (15-37) Alanine Aminotransferase (ALT/SGPT) 103 U/L (14-59) Alkaline Phosphatase 57 U/L (46-116) Total Protein 3.7 g/dL (6.4-8.2) Albumin 1.8 g/dL (3.4-5.0) Albumin/Globulin Ratio 0.9 (1.0-1.7) Test 07/07/19 00:58 07/07/19 06:15 07/07/19 06:18 07/07/19 11:25 Glucose (Fingerstick) 204 mg/dL (70-99) 201 mg/dL (70-99) White Blood Count 18.1 x10^3/uL (4.0-11.0) Red Blood Count 3.53 x10^6/uL (3.50-5.40) Hemoglobin 11.7 g/dL (12.0-15.5) Hematocrit 34.8 % (36.0-47.0) Mean Corpuscular Volume 99 fL (79-100) Mean Corpuscular Hemoglobin 33 pg (25-35) Mean Corpuscular Hemoglobin Concent 34 g/dL (31-37) Red Cell Distribution Width 13.7 % (11.5-14.5) Platelet Count 162 x10^3/uL (140-400) Neutrophils (%) (Auto) 88 % (31-73) Lymphocytes (%) (Auto) 7 % (24-48) Monocytes (%) (Auto) 5 % (0-9) Eosinophils (%) (Auto) 0 % (0-3) Basophils (%) (Auto) 0 % (0-3) Neutrophils # (Auto) 16.0 x10^3/uL (1.8-7.7) Lymphocytes # (Auto) 1.2 x10^3/uL (1.0-4.8) Monocytes # (Auto) 0.8 x10^3/uL (0.0-1.1) Eosinophils # (Auto) 0.0 x10^3/uL (0.0-0.7) Basophils # (Auto) 0.0 x10^3/uL (0.0-0.2) Sodium Level 139 mmol/L (136-145) Potassium Level 3.8 mmol/L (3.5-5.1) Chloride Level 103 mmol/L (98-107) Carbon Dioxide Level 23 mmol/L (21-32) Anion Gap 13 (6-14) Blood Urea Nitrogen 52 mg/dL (7-20) Creatinine 5.7 mg/dL (0.6-1.0) Estimated GFR (Cockcroft-Gault) 7.9 BUN/Creatinine Ratio 9 (6-20) Glucose Level 236 mg/dL (70-99) Calcium Level < 5.0 mg/dL (8.5-10.1) Phosphorus Level 4.5 mg/dL (2.6-4.7) Magnesium Level 1.4 mg/dL (1.8-2.4) Total Bilirubin 0.7 mg/dL (0.2-1.0) Aspartate Amino Transf (AST/SGOT) 111 U/L (15-37) Alanine Aminotransferase (ALT/SGPT) 84 U/L (14-59) Alkaline Phosphatase 57 U/L (46-116) Total Protein 4.3 g/dL (6.4-8.2) Albumin 1.5 g/dL (3.4-5.0) Albumin/Globulin Ratio 0.5 (1.0-1.7) O2 Saturation 96 % (92-99) Arterial Blood pH 7.40 (7.35-7.45) Arterial Blood pCO2 at Patient Temp 40 mmHg (35-46) Arterial Blood pO2 at Patient Temp 84 mmHg (75-108) Arterial Blood HCO3 25 mmol/L (21-28) Arterial Blood Base Excess 0 mmol/L (-3-3) FiO2 45 Test 07/07/19 11:26 07/07/19 16:45 07/07/19 17:07 07/08/19 00:21 Glucose (Fingerstick) 176 mg/dL (70-99) 237 mg/dL (70-99) 259 mg/dL (70-99) O2 Saturation 97 % (92-99) Arterial Blood pH 7.46 (7.35-7.45) Arterial Blood pCO2 at Patient Temp 33 mmHg (35-46) Arterial Blood pO2 at Patient Temp 88 mmHg (75-108) Arterial Blood HCO3 23 mmol/L (21-28) Arterial Blood Base Excess 0 mmol/L (-3-3) FiO2 60 Test 07/08/19 06:00 07/08/19 06:04 07/08/19 06:45 07/08/19 08:00 White Blood Count 16.8 x10^3/uL (4.0-11.0) Red Blood Count 3.26 x10^6/uL (3.50-5.40) Hemoglobin 10.8 g/dL (12.0-15.5) Hematocrit 32.0 % (36.0-47.0) Mean Corpuscular Volume 98 fL (79-100) Mean Corpuscular Hemoglobin 33 pg (25-35) Mean Corpuscular Hemoglobin Concent 34 g/dL (31-37) Red Cell Distribution Width 13.4 % (11.5-14.5) Platelet Count 141 x10^3/uL (140-400) Neutrophils (%) (Auto) 91 % (31-73) Lymphocytes (%) (Auto) 5 % (24-48) Monocytes (%) (Auto) 4 % (0-9) Eosinophils (%) (Auto) 0 % (0-3) Basophils (%) (Auto) 0 % (0-3) Neutrophils # (Auto) 15.3 x10^3/uL (1.8-7.7) Lymphocytes # (Auto) 0.8 x10^3/uL (1.0-4.8) Monocytes # (Auto) 0.7 x10^3/uL (0.0-1.1) Eosinophils # (Auto) 0.1 x10^3/uL (0.0-0.7) Basophils # (Auto) 0.0 x10^3/uL (0.0-0.2) Sodium Level 139 mmol/L (136-145) Potassium Level 2.4 mmol/L (3.5-5.1) Chloride Level 103 mmol/L (98-107) Carbon Dioxide Level 22 mmol/L (21-32) Anion Gap 14 (6-14) Blood Urea Nitrogen 41 mg/dL (7-20) Creatinine 5.0 mg/dL (0.6-1.0) Estimated GFR (Cockcroft-Gault) 9.2 BUN/Creatinine Ratio 8 (6-20) Glucose Level 219 mg/dL (70-99) Calcium Level < 5.0 mg/dL (8.5-10.1) Phosphorus Level 2.5 mg/dL (2.6-4.7) Magnesium Level 1.9 mg/dL (1.8-2.4) Total Bilirubin 0.5 mg/dL (0.2-1.0) Aspartate Amino Transf (AST/SGOT) 56 U/L (15-37) Alanine Aminotransferase (ALT/SGPT) 45 U/L (14-59) Alkaline Phosphatase 55 U/L (46-116) Total Protein 3.8 g/dL (6.4-8.2) Albumin 1.0 g/dL (3.4-5.0) Albumin/Globulin Ratio 0.4 (1.0-1.7) Triglycerides Level 214 mg/dL (0-150) Glucose (Fingerstick) 218 mg/dL (70-99) Ionized Calcium < 0.25 mmol/L (1.13-1.32) O2 Saturation 84 % (92-99) Arterial Blood pH 7.36 (7.35-7.45) Arterial Blood pCO2 at Patient Temp 43 mmHg (35-46) Arterial Blood pO2 at Patient Temp 51 mmHg (75-108) Arterial Blood HCO3 24 mmol/L (21-28) Arterial Blood Base Excess -2 mmol/L (-3-3) FiO2 Bipap 60% Test 07/08/19 11:25 07/08/19 11:30 07/08/19 12:21 O2 Saturation 99 % (92-99) Arterial Blood pH 7.42 (7.35-7.45) Arterial Blood pCO2 at Patient Temp 53 mmHg (35-46) Arterial Blood pO2 at Patient Temp 136 mmHg (75-108) Arterial Blood HCO3 33 mmol/L (21-28) Arterial Blood Base Excess 7 mmol/L (-3-3) FiO2 60 Potassium Level 3.4 mmol/L (3.5-5.1) Glucose (Fingerstick) 135 mg/dL (70-99) Laboratory Tests Test 07/07/19 16:45 07/07/19 17:07 07/08/19 00:21 07/08/19 06:00 O2 Saturation 97 % (92-99) Arterial Blood pH 7.46 (7.35-7.45) Arterial Blood pCO2 at Patient Temp 33 mmHg (35-46) Arterial Blood pO2 at Patient Temp 88 mmHg (75-108) Arterial Blood HCO3 23 mmol/L (21-28) Arterial Blood Base Excess 0 mmol/L (-3-3) FiO2 60 Glucose (Fingerstick) 237 mg/dL (70-99) 259 mg/dL (70-99) White Blood Count 16.8 x10^3/uL (4.0-11.0) Red Blood Count 3.26 x10^6/uL (3.50-5.40) Hemoglobin 10.8 g/dL (12.0-15.5) Hematocrit 32.0 % (36.0-47.0) Mean Corpuscular Volume 98 fL (79-100) Mean Corpuscular Hemoglobin 33 pg (25-35) Mean Corpuscular Hemoglobin Concent 34 g/dL (31-37) Red Cell Distribution Width 13.4 % (11.5-14.5) Platelet Count 141 x10^3/uL (140-400) Neutrophils (%) (Auto) 91 % (31-73) Lymphocytes (%) (Auto) 5 % (24-48) Monocytes (%) (Auto) 4 % (0-9) Eosinophils (%) (Auto) 0 % (0-3) Basophils (%) (Auto) 0 % (0-3) Neutrophils # (Auto) 15.3 x10^3/uL (1.8-7.7) Lymphocytes # (Auto) 0.8 x10^3/uL (1.0-4.8) Monocytes # (Auto) 0.7 x10^3/uL (0.0-1.1) Eosinophils # (Auto) 0.1 x10^3/uL (0.0-0.7) Basophils # (Auto) 0.0 x10^3/uL (0.0-0.2) Sodium Level 139 mmol/L (136-145) Potassium Level 2.4 mmol/L (3.5-5.1) Chloride Level 103 mmol/L (98-107) Carbon Dioxide Level 22 mmol/L (21-32) Anion Gap 14 (6-14) Blood Urea Nitrogen 41 mg/dL (7-20) Creatinine 5.0 mg/dL (0.6-1.0) Estimated GFR (Cockcroft-Gault) 9.2 BUN/Creatinine Ratio 8 (6-20) Glucose Level 219 mg/dL (70-99) Calcium Level < 5.0 mg/dL (8.5-10.1) Phosphorus Level 2.5 mg/dL (2.6-4.7) Magnesium Level 1.9 mg/dL (1.8-2.4) Total Bilirubin 0.5 mg/dL (0.2-1.0) Aspartate Amino Transf (AST/SGOT) 56 U/L (15-37) Alanine Aminotransferase (ALT/SGPT) 45 U/L (14-59) Alkaline Phosphatase 55 U/L (46-116) Total Protein 3.8 g/dL (6.4-8.2) Albumin 1.0 g/dL (3.4-5.0) Albumin/Globulin Ratio 0.4 (1.0-1.7) Triglycerides Level 214 mg/dL (0-150) Test 07/08/19 06:04 07/08/19 06:45 07/08/19 08:00 07/08/19 11:25 Glucose (Fingerstick) 218 mg/dL (70-99) Ionized Calcium < 0.25 mmol/L (1.13-1.32) O2 Saturation 84 % (92-99) 99 % (92-99) Arterial Blood pH 7.36 (7.35-7.45) 7.42 (7.35-7.45) Arterial Blood pCO2 at Patient Temp 43 mmHg (35-46) 53 mmHg (35-46) Arterial Blood pO2 at Patient Temp 51 mmHg (75-108) 136 mmHg (75-108) Arterial Blood HCO3 24 mmol/L (21-28) 33 mmol/L (21-28) Arterial Blood Base Excess -2 mmol/L (-3-3) 7 mmol/L (-3-3) FiO2 Bipap 60% 60 Test 07/08/19 11:30 07/08/19 12:21 Potassium Level 3.4 mmol/L (3.5-5.1) Glucose (Fingerstick) 135 mg/dL (70-99) Medications Active Scripts Medications Dose Route/Sig Max Daily Dose Days Date Category Bisoprolol Fumarate 5 Mg Tablet 10 Mg PO DAILY 07/04/19 Reported Impression . IMPRESSION: 1. Acute hypoxemic respiratory failure secondary to acute pancreatitis, sepsis, abdominal distention, and pneumonia. 2. Gallstone pancreatitis. 3. Severe metabolic acidosis. 4. Acute kidney injury. ON HD 5. Acute gallstone pancreatitis. 6. Hypoalbuminemia. 7. Hypocalcemia. Plan . WILL CONTINUE SUPPORT FOR NOW DOES NOT NEED INTUBATION HD PER NEPHRO REPLACE CALCIUM WILL CONTINUE BIPAP D/W WITH DR GARCIA TPN FOLLOW SURGERY INPUT HARMEET BEE MD Jul 08, 2019 15:28
--- NOTE | 2019-07-08 17:15 | NUR ---
pt given pain med of dilaudid 1 mg at 1630 and ativan 1mg at 1645. pt sprayed with hurracaine spray orally and lidocaine jelly place in both nostrils and coated gastric tube with jelly. attempted to place ng tube via right nare. unsuccessful would not advance past nasal cavity. successful placement without difficulty via left nare. auscultated in luq. return of brown colored drainage. placed to low intermittent suction. bright red drainage suctioned from back of mouth. pt without bipap while placing tube. used nonrebreather to supplement. pt sats dropped to 90%. bipap placed back on pt. levophed continued for support.
[2019-07-08] MEDS: NOREPINEPHRINE VIAL 8 MG in IV DEXTROSE 5% 250 ML IV PRN (21:02)
[2019-07-08] MEDS ORDERED: TOTAL PARENTERAL NUTRITION IV SCH ×10 (22:00)
[2019-07-08] MEDS ORDERED: [UNRECOGNIZED DRUG - OTHER] IV SCH ×10 (22:00)
[2019-07-08] MEDS ORDERED: AMINO ACID IV SCH ×10 (22:00)
[2019-07-08] MEDS ORDERED: DEXTROSE 70% IV SCH ×10 (22:00)
[2019-07-09] VITALS (24 sets, daily range): BP systolic 82–144; BP diastolic 50–68
[2019-07-09] MEDS: HYDROmorphone 2 MG/ML VIAL IV PRN ×6 (02:17→20:58)
[2019-07-09] MEDS: NORMAL SALINE IV SCH (02:17)
[2019-07-09] MEDS: CALCIUM CHLORIDE IV SCH (02:17)
[2019-07-09] MEDS ORDERED: ACETAMINOPHEN 650 MG/20.3 ML SOLUTION. PO PRN (03:30)
[2019-07-09] MEDS: ACETAMINOPHEN 650 MG/20.3 ML SOLUTION. PEG PRN ×2 (04:10→16:36)
--- NOTE | 2019-07-09 05:37 | RAD ---
Chest AP portable at 0519: Reason for examination: Pleural effusion. Comparison is made to previous study dated 07/08/2019. Double lumen catheter, right PICC line and left subclavian line remain present. NG tube is present and in satisfactory position. Heart and mediastinum are unchanged. Lung lopez continue show bibasilar infiltrates and moderate bilateral pleural effusions which show no significant change. No acute bony abnormalities are seen. IMPRESSION: Continued presence of bibasilar infiltrates and pleural effusions without interval change. Electronically signed by: Nicole Martin MD (07/09/2019 5:34 AM) [id number]
[2019-07-09] MEDS: INSULIN LISPRO 300 UNITS/3 ML VIAL. SQ SCH ×3 (06:00→18:06)
[2019-07-09] MEDS: METOPROLOL TARTRATE 5 MG/5 ML VIAL. IVP SCH ×3 (06:02→17:43)
[2019-07-09 06:19] LABS: HEMATOCRIT 29.3 % (36.0-47.0); HEMOGLOBIN 9.9 g/dL (12.0-15.5); RED BLOOD COUNT 2.98 x10^6/uL (3.50-5.40); RED CELL DISTRIBUTION WIDTH 13.4 % (11.5-14.5)
--- NOTE | 2019-07-09 06:23 | PDOC ---
PULMONARY PROGRESS NOTES Subjective on bipap, sleepy just had diladid, t max 101.7 follows commands per rn, Vitals Vital Signs Date Time Temp Pulse Resp B/P (MAP) Pulse Ox O2 Delivery O2 Flow Rate FiO2 07/09/19 06:00 105 22 90/55 (67) 95 BiPAP/CPAP 07/09/19 04:00 101.7 101.7 Comments discussed w rn, ros as mentioned as above other sys otherwise neg sleepy on bipap HEENT: Other (nc at perrl bipap mask on neck no lad no thyromegaly) Lungs: Crackles Cardiovascular: S1, S2 Abdomen: Other (distended, diffuse pain no mass) Extremities: No Edema Skin: Warm Labs Laboratory Tests Test 07/07/19 06:18 07/07/19 11:25 07/07/19 11:26 07/07/19 16:45 Glucose (Fingerstick) 201 mg/dL (70-99) 176 mg/dL (70-99) O2 Saturation 96 % (92-99) 97 % (92-99) Arterial Blood pH 7.40 (7.35-7.45) 7.46 (7.35-7.45) Arterial Blood pCO2 at Patient Temp 40 mmHg (35-46) 33 mmHg (35-46) Arterial Blood pO2 at Patient Temp 84 mmHg (75-108) 88 mmHg (75-108) Arterial Blood HCO3 25 mmol/L (21-28) 23 mmol/L (21-28) Arterial Blood Base Excess 0 mmol/L (-3-3) 0 mmol/L (-3-3) FiO2 45 60 Test 07/07/19 17:07 07/08/19 00:21 07/08/19 06:00 07/08/19 06:04 Glucose (Fingerstick) 237 mg/dL (70-99) 259 mg/dL (70-99) 218 mg/dL (70-99) White Blood Count 16.8 x10^3/uL (4.0-11.0) Red Blood Count 3.26 x10^6/uL (3.50-5.40) Hemoglobin 10.8 g/dL (12.0-15.5) Hematocrit 32.0 % (36.0-47.0) Mean Corpuscular Volume 98 fL (79-100) Mean Corpuscular Hemoglobin 33 pg (25-35) Mean Corpuscular Hemoglobin Concent 34 g/dL (31-37) Red Cell Distribution Width 13.4 % (11.5-14.5) Platelet Count 141 x10^3/uL (140-400) Neutrophils (%) (Auto) 91 % (31-73) Lymphocytes (%) (Auto) 5 % (24-48) Monocytes (%) (Auto) 4 % (0-9) Eosinophils (%) (Auto) 0 % (0-3) Basophils (%) (Auto) 0 % (0-3) Neutrophils # (Auto) 15.3 x10^3/uL (1.8-7.7) Lymphocytes # (Auto) 0.8 x10^3/uL (1.0-4.8) Monocytes # (Auto) 0.7 x10^3/uL (0.0-1.1) Eosinophils # (Auto) 0.1 x10^3/uL (0.0-0.7) Basophils # (Auto) 0.0 x10^3/uL (0.0-0.2) Sodium Level 139 mmol/L (136-145) Potassium Level 2.4 mmol/L (3.5-5.1) Chloride Level 103 mmol/L (98-107) Carbon Dioxide Level 22 mmol/L (21-32) Anion Gap 14 (6-14) Blood Urea Nitrogen 41 mg/dL (7-20) Creatinine 5.0 mg/dL (0.6-1.0) Estimated GFR (Cockcroft-Gault) 9.2 BUN/Creatinine Ratio 8 (6-20) Glucose Level 219 mg/dL (70-99) Calcium Level < 5.0 mg/dL (8.5-10.1) Phosphorus Level 2.5 mg/dL (2.6-4.7) Magnesium Level 1.9 mg/dL (1.8-2.4) Total Bilirubin 0.5 mg/dL (0.2-1.0) Aspartate Amino Transf (AST/SGOT) 56 U/L (15-37) Alanine Aminotransferase (ALT/SGPT) 45 U/L (14-59) Alkaline Phosphatase 55 U/L (46-116) Total Protein 3.8 g/dL (6.4-8.2) Albumin 1.0 g/dL (3.4-5.0) Albumin/Globulin Ratio 0.4 (1.0-1.7) Triglycerides Level 214 mg/dL (0-150) Test 07/08/19 06:45 07/08/19 08:00 07/08/19 11:25 07/08/19 11:30 Ionized Calcium < 0.25 mmol/L (1.13-1.32) O2 Saturation 84 % (92-99) 99 % (92-99) Arterial Blood pH 7.36 (7.35-7.45) 7.42 (7.35-7.45) Arterial Blood pCO2 at Patient Temp 43 mmHg (35-46) 53 mmHg (35-46) Arterial Blood pO2 at Patient Temp 51 mmHg (75-108) 136 mmHg (75-108) Arterial Blood HCO3 24 mmol/L (21-28) 33 mmol/L (21-28) Arterial Blood Base Excess -2 mmol/L (-3-3) 7 mmol/L (-3-3) FiO2 Bipap 60% 60 Potassium Level 3.4 mmol/L (3.5-5.1) Test 07/08/19 12:21 07/08/19 17:46 07/08/19 23:15 07/09/19 06:07 Glucose (Fingerstick) 135 mg/dL (70-99) 261 mg/dL (70-99) 290 mg/dL (70-99) 239 mg/dL (70-99) Laboratory Tests Test 07/08/19 06:45 07/08/19 08:00 07/08/19 11:25 07/08/19 11:30 Ionized Calcium < 0.25 mmol/L (1.13-1.32) O2 Saturation 84 % (92-99) 99 % (92-99) Arterial Blood pH 7.36 (7.35-7.45) 7.42 (7.35-7.45) Arterial Blood pCO2 at Patient Temp 43 mmHg (35-46) 53 mmHg (35-46) Arterial Blood pO2 at Patient Temp 51 mmHg (75-108) 136 mmHg (75-108) Arterial Blood HCO3 24 mmol/L (21-28) 33 mmol/L (21-28) Arterial Blood Base Excess -2 mmol/L (-3-3) 7 mmol/L (-3-3) FiO2 Bipap 60% 60 Potassium Level 3.4 mmol/L (3.5-5.1) Test 07/08/19 12:21 07/08/19 17:46 07/08/19 23:15 07/09/19 06:07 Glucose (Fingerstick) 135 mg/dL (70-99) 261 mg/dL (70-99) 290 mg/dL (70-99) 239 mg/dL (70-99) Medications Active Scripts Medications Dose Route/Sig Max Daily Dose Days Date Category Bisoprolol Fumarate 5 Mg Tablet 10 Mg PO DAILY 07/04/19 Reported Comments reviewed cxr 07/08 Continued presence of bibasilar infiltrates and pleural effusions without interval change. Impression . IMPRESSION: 1. Acute hypoxemic respiratory failure secondary to acute pancreatitis, sepsis, abdominal distention, and pneumonia. 2. Gallstone pancreatitis. 3. Severe metabolic acidosis. 4. Acute kidney injury. ON HD 5. Acute gallstone pancreatitis. 6. Hypoalbuminemia. 7. Hypocalcemia. Plan . cont bipap prn during day, cont at night, setting reviewed 02 titration BD avoid over sedation elevate hob protonix scds for prophylaxis HD PER NEPHRO REPLACE CALCIUM TPN FOLLOW SURGERY INPUT discussed w TEN Toth MD Jul 09, 2019 06:23
[2019-07-09 06:32] LABS: CALCIUM 6.6 mg/dL (8.5-10.1); CREATININE 4.8 mg/dL (0.6-1.0); GFR 9.6; MAGNESIUM 2.2 mg/dL (1.8-2.4); PHOSPHORUS 3.4 mg/dL (2.6-4.7); POTASSIUM 3.5 mmol/L (3.5-5.1)
[2019-07-09 07:32] LABS: BASE EXCESS ABG -2 mmol/L (-3-3); HCO3 ABG 25 mmol/L (21-28); PCO2 ABG 54 mmHg (35-46); PO2 ABG 107 mmHg (75-108); SAT O2 ABG 97 % (92-99)
[2019-07-09 07:35] LABS: FIO2 ABG 40
[2019-07-09] MEDS: PANTOPRAZOLE IV PUSH 40 MG VIAL. IVP SCH (07:43)
[2019-07-09] MEDS ORDERED: IV NORMAL SALINE 1000ML BAG 1,000 ML IV PRN ×2 (07:50)
[2019-07-09] MEDS ORDERED: ALBUMIN HUMAN 25% 200 ML IV PRN (08:00)
[2019-07-09] MEDS ORDERED: DIALYSIS PATIENT. MC PRN ×2 (08:00)
[2019-07-09] MEDS ORDERED: 0.9 % SODIUM CHLORIDE 10 ML DISP.SYRIN. IV PRN ×2 (08:00)
--- NOTE | 2019-07-09 09:27 | PDOC ---
Infectious Disease Note Subjective Subjective Fever Tmax 101.7 on BiPAP FiO2 40% Levophed gtt TPN ROS ROS unobtainable Vital Sign Vital Signs Vital Signs Date Time Temp Pulse Resp B/P (MAP) Pulse Ox O2 Delivery O2 Flow Rate FiO2 07/09/19 08:55 98 BiPAP/CPAP 07/09/19 08:00 98.9 113 14 103/59 (74) 98.9 Physical Exam PHYSICAL EXAM GENERAL: Lethargic, on BiPAP, fidgety, + mitts, dialyzing HEENT: Mild icterus. Oral mucosa dry. NECK: Supple. Temp HDC cath in place LUNGS: Decreased breath sounds at the bases. Soft wheezes HEART: S1, S2, tachycardia, 110s, regular ABDOMEN: Soft, mildly distended, + BS Rectal tube in place : Lind EXTREMITIES: Trace edema, no cyanosis. DERMATOLOGIC: Warm and dry. No generalized rash. CENTRAL NERVOUS SYSTEM: Extremely lethargic RUE-PICC clean Labs Lab Laboratory Tests Test 07/08/19 11:25 07/08/19 11:30 07/08/19 12:21 07/08/19 17:46 O2 Saturation 99 % (92-99) Arterial Blood pH 7.42 (7.35-7.45) Arterial Blood pCO2 at Patient Temp 53 mmHg (35-46) Arterial Blood pO2 at Patient Temp 136 mmHg (75-108) Arterial Blood HCO3 33 mmol/L (21-28) Arterial Blood Base Excess 7 mmol/L (-3-3) FiO2 60 Potassium Level 3.4 mmol/L (3.5-5.1) Glucose (Fingerstick) 135 mg/dL (70-99) 261 mg/dL (70-99) Test 07/08/19 23:15 07/09/19 06:07 07/09/19 06:10 07/09/19 07:33 Glucose (Fingerstick) 290 mg/dL (70-99) 239 mg/dL (70-99) White Blood Count 15.0 x10^3/uL (4.0-11.0) Red Blood Count 2.98 x10^6/uL (3.50-5.40) Hemoglobin 9.9 g/dL (12.0-15.5) Hematocrit 29.3 % (36.0-47.0) Mean Corpuscular Volume 98 fL (79-100) Mean Corpuscular Hemoglobin 33 pg (25-35) Mean Corpuscular Hemoglobin Concent 34 g/dL (31-37) Red Cell Distribution Width 13.4 % (11.5-14.5) Platelet Count 164 x10^3/uL (140-400) Sodium Level 138 mmol/L (136-145) Potassium Level 3.5 mmol/L (3.5-5.1) Chloride Level 102 mmol/L (98-107) Carbon Dioxide Level 28 mmol/L (21-32) Anion Gap 8 (6-14) Blood Urea Nitrogen 39 mg/dL (7-20) Creatinine 4.8 mg/dL (0.6-1.0) Estimated GFR (Cockcroft-Gault) 9.6 Glucose Level 263 mg/dL (70-99) Calcium Level 6.6 mg/dL (8.5-10.1) Phosphorus Level 3.4 mg/dL (2.6-4.7) Magnesium Level 2.2 mg/dL (1.8-2.4) O2 Saturation 97 % (92-99) Arterial Blood pH 7.28 (7.35-7.45) Arterial Blood pCO2 at Patient Temp 54 mmHg (35-46) Arterial Blood pO2 at Patient Temp 107 mmHg (75-108) Arterial Blood HCO3 25 mmol/L (21-28) Arterial Blood Base Excess -2 mmol/L (-3-3) FiO2 40 CXR Continued presence of bibasilar infiltrates and pleural effusions without interval change. Micro Microbiology 07/06/19 Blood Culture - Preliminary, Resulted NO GROWTH AFTER 3 DAYS Objective Assessment Fever Acute pancreatitis, early developing necrosis Cholelithiasis Leucocytosis - trending down JUANA,Hyperkalemia, Metabolic acidosis on HD Acute hypoxic resp failure, bilateral pleural effusion on BiPAP Hypotension - on Levophed Hypocalcemia Prediabetes HTN Plan Plan of Care cont merrem, renal dosing and Zyvox (07/07) f/u labs and cults cont supportive care d/w RN Resp failure on Bipap On HD LE mottled Menstrating WBC better D/w nursing Attending Co-Sign Attending Co-Sign The patient was seen and interviewed as well as examined at the bedside. The chart was reviewed. The case was discussed. Agree with the plan of care. FRANCA HOBSON APRN Jul 09, 2019 09:27 WILLY BARAKAT MD Jul 09, 2019 12:49
--- NOTE | 2019-07-09 10:50 | PDOC ---
SURGICAL PROGRESS NOTE Subjective BIPAP on sleepy with IV pain meds Vital Signs Vital Signs Date Time Temp Pulse Resp B/P (MAP) Pulse Ox O2 Delivery O2 Flow Rate FiO2 07/09/19 09:40 28 98 07/09/19 09:00 112 111/57 (75) BiPAP/CPAP 07/09/19 08:00 98.9 98.9 I&O Intake and Output 07/09/19 07:00 Intake Total 4855.4 ml Output Total 980 ml Balance 3875.4 ml Intake Oral 0 ml IV Total 4855.4 ml Output Urine Total 80 ml Stool Total 900 ml Abdomen: Other (obese,soft) Labs Laboratory Tests Test 07/07/19 11:25 07/07/19 11:26 07/07/19 16:45 07/07/19 17:07 O2 Saturation 96 % (92-99) 97 % (92-99) Arterial Blood pH 7.40 (7.35-7.45) 7.46 (7.35-7.45) Arterial Blood pCO2 at Patient Temp 40 mmHg (35-46) 33 mmHg (35-46) Arterial Blood pO2 at Patient Temp 84 mmHg (75-108) 88 mmHg (75-108) Arterial Blood HCO3 25 mmol/L (21-28) 23 mmol/L (21-28) Arterial Blood Base Excess 0 mmol/L (-3-3) 0 mmol/L (-3-3) FiO2 45 60 Glucose (Fingerstick) 176 mg/dL (70-99) 237 mg/dL (70-99) Test 07/08/19 00:21 07/08/19 06:00 07/08/19 06:04 07/08/19 06:45 Glucose (Fingerstick) 259 mg/dL (70-99) 218 mg/dL (70-99) White Blood Count 16.8 x10^3/uL (4.0-11.0) Red Blood Count 3.26 x10^6/uL (3.50-5.40) Hemoglobin 10.8 g/dL (12.0-15.5) Hematocrit 32.0 % (36.0-47.0) Mean Corpuscular Volume 98 fL (79-100) Mean Corpuscular Hemoglobin 33 pg (25-35) Mean Corpuscular Hemoglobin Concent 34 g/dL (31-37) Red Cell Distribution Width 13.4 % (11.5-14.5) Platelet Count 141 x10^3/uL (140-400) Neutrophils (%) (Auto) 91 % (31-73) Lymphocytes (%) (Auto) 5 % (24-48) Monocytes (%) (Auto) 4 % (0-9) Eosinophils (%) (Auto) 0 % (0-3) Basophils (%) (Auto) 0 % (0-3) Neutrophils # (Auto) 15.3 x10^3/uL (1.8-7.7) Lymphocytes # (Auto) 0.8 x10^3/uL (1.0-4.8) Monocytes # (Auto) 0.7 x10^3/uL (0.0-1.1) Eosinophils # (Auto) 0.1 x10^3/uL (0.0-0.7) Basophils # (Auto) 0.0 x10^3/uL (0.0-0.2) Sodium Level 139 mmol/L (136-145) Potassium Level 2.4 mmol/L (3.5-5.1) Chloride Level 103 mmol/L (98-107) Carbon Dioxide Level 22 mmol/L (21-32) Anion Gap 14 (6-14) Blood Urea Nitrogen 41 mg/dL (7-20) Creatinine 5.0 mg/dL (0.6-1.0) Estimated GFR (Cockcroft-Gault) 9.2 BUN/Creatinine Ratio 8 (6-20) Glucose Level 219 mg/dL (70-99) Calcium Level < 5.0 mg/dL (8.5-10.1) Phosphorus Level 2.5 mg/dL (2.6-4.7) Magnesium Level 1.9 mg/dL (1.8-2.4) Total Bilirubin 0.5 mg/dL (0.2-1.0) Aspartate Amino Transf (AST/SGOT) 56 U/L (15-37) Alanine Aminotransferase (ALT/SGPT) 45 U/L (14-59) Alkaline Phosphatase 55 U/L (46-116) Total Protein 3.8 g/dL (6.4-8.2) Albumin 1.0 g/dL (3.4-5.0) Albumin/Globulin Ratio 0.4 (1.0-1.7) Triglycerides Level 214 mg/dL (0-150) Ionized Calcium < 0.25 mmol/L (1.13-1.32) Test 07/08/19 08:00 07/08/19 11:25 07/08/19 11:30 07/08/19 12:21 O2 Saturation 84 % (92-99) 99 % (92-99) Arterial Blood pH 7.36 (7.35-7.45) 7.42 (7.35-7.45) Arterial Blood pCO2 at Patient Temp 43 mmHg (35-46) 53 mmHg (35-46) Arterial Blood pO2 at Patient Temp 51 mmHg (75-108) 136 mmHg (75-108) Arterial Blood HCO3 24 mmol/L (21-28) 33 mmol/L (21-28) Arterial Blood Base Excess -2 mmol/L (-3-3) 7 mmol/L (-3-3) FiO2 Bipap 60% 60 Potassium Level 3.4 mmol/L (3.5-5.1) Glucose (Fingerstick) 135 mg/dL (70-99) Test 07/08/19 17:46 07/08/19 23:15 07/09/19 06:07 07/09/19 06:10 Glucose (Fingerstick) 261 mg/dL (70-99) 290 mg/dL (70-99) 239 mg/dL (70-99) White Blood Count 15.0 x10^3/uL (4.0-11.0) Red Blood Count 2.98 x10^6/uL (3.50-5.40) Hemoglobin 9.9 g/dL (12.0-15.5) Hematocrit 29.3 % (36.0-47.0) Mean Corpuscular Volume 98 fL (79-100) Mean Corpuscular Hemoglobin 33 pg (25-35) Mean Corpuscular Hemoglobin Concent 34 g/dL (31-37) Red Cell Distribution Width 13.4 % (11.5-14.5) Platelet Count 164 x10^3/uL (140-400) Sodium Level 138 mmol/L (136-145) Potassium Level 3.5 mmol/L (3.5-5.1) Chloride Level 102 mmol/L (98-107) Carbon Dioxide Level 28 mmol/L (21-32) Anion Gap 8 (6-14) Blood Urea Nitrogen 39 mg/dL (7-20) Creatinine 4.8 mg/dL (0.6-1.0) Estimated GFR (Cockcroft-Gault) 9.6 Glucose Level 263 mg/dL (70-99) Calcium Level 6.6 mg/dL (8.5-10.1) Phosphorus Level 3.4 mg/dL (2.6-4.7) Magnesium Level 2.2 mg/dL (1.8-2.4) Test 07/09/19 07:33 O2 Saturation 97 % (92-99) Arterial Blood pH 7.28 (7.35-7.45) Arterial Blood pCO2 at Patient Temp 54 mmHg (35-46) Arterial Blood pO2 at Patient Temp 107 mmHg (75-108) Arterial Blood HCO3 25 mmol/L (21-28) Arterial Blood Base Excess -2 mmol/L (-3-3) FiO2 40 Laboratory Tests Test 07/08/19 11:25 07/08/19 11:30 07/08/19 12:21 07/08/19 17:46 O2 Saturation 99 % (92-99) Arterial Blood pH 7.42 (7.35-7.45) Arterial Blood pCO2 at Patient Temp 53 mmHg (35-46) Arterial Blood pO2 at Patient Temp 136 mmHg (75-108) Arterial Blood HCO3 33 mmol/L (21-28) Arterial Blood Base Excess 7 mmol/L (-3-3) FiO2 60 Potassium Level 3.4 mmol/L (3.5-5.1) Glucose (Fingerstick) 135 mg/dL (70-99) 261 mg/dL (70-99) Test 07/08/19 23:15 07/09/19 06:07 07/09/19 06:10 07/09/19 07:33 Glucose (Fingerstick) 290 mg/dL (70-99) 239 mg/dL (70-99) White Blood Count 15.0 x10^3/uL (4.0-11.0) Red Blood Count 2.98 x10^6/uL (3.50-5.40) Hemoglobin 9.9 g/dL (12.0-15.5) Hematocrit 29.3 % (36.0-47.0) Mean Corpuscular Volume 98 fL (79-100) Mean Corpuscular Hemoglobin 33 pg (25-35) Mean Corpuscular Hemoglobin Concent 34 g/dL (31-37) Red Cell Distribution Width 13.4 % (11.5-14.5) Platelet Count 164 x10^3/uL (140-400) Sodium Level 138 mmol/L (136-145) Potassium Level 3.5 mmol/L (3.5-5.1) Chloride Level 102 mmol/L (98-107) Carbon Dioxide Level 28 mmol/L (21-32) Anion Gap 8 (6-14) Blood Urea Nitrogen 39 mg/dL (7-20) Creatinine 4.8 mg/dL (0.6-1.0) Estimated GFR (Cockcroft-Gault) 9.6 Glucose Level 263 mg/dL (70-99) Calcium Level 6.6 mg/dL (8.5-10.1) Phosphorus Level 3.4 mg/dL (2.6-4.7) Magnesium Level 2.2 mg/dL (1.8-2.4) O2 Saturation 97 % (92-99) Arterial Blood pH 7.28 (7.35-7.45) Arterial Blood pCO2 at Patient Temp 54 mmHg (35-46) Arterial Blood pO2 at Patient Temp 107 mmHg (75-108) Arterial Blood HCO3 25 mmol/L (21-28) Arterial Blood Base Excess -2 mmol/L (-3-3) FiO2 40 Problem List Problems Medical Problems: (1) Acute pancreatitis Status: Acute (2) Cholelithiasis Status: Acute Assessment/Plan gallstone pancreatitis respiratory failure continue supportive care no new surgical recs MARV WYNNE MD Jul 09, 2019 10:50
--- NOTE | 2019-07-09 11:11 | PDOC ---
PROGRESS NOTES Chief Complaint Chief Complaint A/P: Acute 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 GI, ID, and general surgery consulted. Will keep NPO, pain control. Calculus of gallbladder with acute cholecystitis without obstruction - with secondary pancreatitis. Lap ronel is indicated, will need to await pancreatitis resolution Prediabetes - will keep on sliding scale HTN - cont prn hydralazine Sepsis - with acute pancreatitis as end organ dysfunction, sign of infection, zyvox, merrem Acute kidney failure now requiring dialysis Salpingitis Uterine fibroid Hypoxia with respiratory failure - requiring bipap, likely pulmonary edema related to pancreatitis, sepsis Intractable pain Intractable nausea FEN - NPO PPX - heparin FULL CODE Dispo - inpatient for 2 midnights. Transferred to ICU for worsening pancreatitis symptoms CC time 45 minutes History of Present Illness History of Present Illness Ms Diaz is a 48yo F w/ PMHx HTN, prediabetes who presents the emergency room complaints of abdominal pain. Patient described off and on 3 days. She states is constant, described as a squeezing sensation in a band-like distribution. + nausea, vomiting. She denies any fever or diarrhea. Patient denies any abdominal surgical procedures. She states is worse with movements, car ride. Pain initially was upper abdomen however now pretty much generalized. Last bowel movement was 07/03/2019. Nothing makes her pain better. Patient denies any shortness of breath. She does state the pain moves into her chest. Denies any headache or visual changes. Lipase 23834, AST 401, ALT 249, Bilirubin 1.4. CT abdomen confirms pancreatic inflammation, peripancreatic fluid and inflam matory changes around the pancreas consistent with pancreatitis. Cholelithiasis and 1.4cm uterine fibroid as well as possible left salpingitis. Admitted for further care GI, General surgery, ID, Pulm consulted. 07/04: Overnight per report no urine output. Added dilaudid for pain, PICC placed per IR. Renal US negative.Seen bedside in ICU, given 2L additional NSS and albumin infusion. Still hypotensive, started on levophed. Repeat CT abdomen with necrosis. Updated her fiancee 07/05: Sats are only 87% on nasal cannula oxygen. Dialysis catheter per nephrology 07/06: She is now on BiPAP appears more ill, now on dialysis 07/07: Seen on BiPAP. Her mother and another family member are present and seemed to be good support for her. Currently on dialysis. Appears critically ill Overnight Tmax 101.7 , still on BiPAP FiO2 40%, still on low dose Levophed gtt, TPN initiated. On dialysis Vitals Vitals Vital Signs Date Time Temp Pulse Resp B/P (MAP) Pulse Ox O2 Delivery O2 Flow Rate FiO2 07/09/19 09:40 28 98 07/09/19 09:00 112 111/57 (75) BiPAP/CPAP 07/09/19 08:00 98.9 98.9 Physical Exam Physical Exam GENERAL: Lethargic, on BiPAP, fidgety, + mitts, dialyzing HEENT: Mild icterus. Oral mucosa dry. NECK: Supple. Temp HDC cath in place LUNGS: Decreased breath sounds at the bases. Soft wheezes HEART: S1, S2, tachycardia, 110s, regular ABDOMEN: Soft, mildly distended, + BS Rectal tube in place : Lind EXTREMITIES: Trace edema, no cyanosis. DERMATOLOGIC: Warm and dry. No generalized rash. CENTRAL NERVOUS SYSTEM: Extremely lethargic RUE-PICC clean General: Other (ill appearing ) Heart: Other (increased rate) Lungs: Crackles Abdomen: Other (obese,soft) Extremities: No edema, Other (SOME CLUBBING ) Skin: No rashes, No breakdown, No significant lesion Labs LABS Laboratory Tests Test 07/08/19 11:25 07/08/19 11:30 07/08/19 12:21 07/08/19 17:46 O2 Saturation 99 % (92-99) Arterial Blood pH 7.42 (7.35-7.45) Arterial Blood pCO2 at Patient Temp 53 mmHg (35-46) Arterial Blood pO2 at Patient Temp 136 mmHg (75-108) Arterial Blood HCO3 33 mmol/L (21-28) Arterial Blood Base Excess 7 mmol/L (-3-3) FiO2 60 Potassium Level 3.4 mmol/L (3.5-5.1) Glucose (Fingerstick) 135 mg/dL (70-99) 261 mg/dL (70-99) Test 07/08/19 23:15 07/09/19 06:07 07/09/19 06:10 07/09/19 07:33 Glucose (Fingerstick) 290 mg/dL (70-99) 239 mg/dL (70-99) White Blood Count 15.0 x10^3/uL (4.0-11.0) Red Blood Count 2.98 x10^6/uL (3.50-5.40) Hemoglobin 9.9 g/dL (12.0-15.5) Hematocrit 29.3 % (36.0-47.0) Mean Corpuscular Volume 98 fL (79-100) Mean Corpuscular Hemoglobin 33 pg (25-35) Mean Corpuscular Hemoglobin Concent 34 g/dL (31-37) Red Cell Distribution Width 13.4 % (11.5-14.5) Platelet Count 164 x10^3/uL (140-400) Sodium Level 138 mmol/L (136-145) Potassium Level 3.5 mmol/L (3.5-5.1) Chloride Level 102 mmol/L (98-107) Carbon Dioxide Level 28 mmol/L (21-32) Anion Gap 8 (6-14) Blood Urea Nitrogen 39 mg/dL (7-20) Creatinine 4.8 mg/dL (0.6-1.0) Estimated GFR (Cockcroft-Gault) 9.6 Glucose Level 263 mg/dL (70-99) Calcium Level 6.6 mg/dL (8.5-10.1) Phosphorus Level 3.4 mg/dL (2.6-4.7) Magnesium Level 2.2 mg/dL (1.8-2.4) O2 Saturation 97 % (92-99) Arterial Blood pH 7.28 (7.35-7.45) Arterial Blood pCO2 at Patient Temp 54 mmHg (35-46) Arterial Blood pO2 at Patient Temp 107 mmHg (75-108) Arterial Blood HCO3 25 mmol/L (21-28) Arterial Blood Base Excess -2 mmol/L (-3-3) FiO2 40 Assessment and Plan Assessmemt and Plan Problems Medical Problems: (1) Acute pancreatitis Status: Acute (2) Cholelithiasis Status: Acute Comment Review of Relevant I have reviewed the following items kolby (where applicable) has been applied. Labs Laboratory Tests Test 07/07/19 11:25 07/07/19 11:26 07/07/19 16:45 07/07/19 17:07 O2 Saturation 96 % (92-99) 97 % (92-99) Arterial Blood pH 7.40 (7.35-7.45) 7.46 (7.35-7.45) Arterial Blood pCO2 at Patient Temp 40 mmHg (35-46) 33 mmHg (35-46) Arterial Blood pO2 at Patient Temp 84 mmHg (75-108) 88 mmHg (75-108) Arterial Blood HCO3 25 mmol/L (21-28) 23 mmol/L (21-28) Arterial Blood Base Excess 0 mmol/L (-3-3) 0 mmol/L (-3-3) FiO2 45 60 Glucose (Fingerstick) 176 mg/dL (70-99) 237 mg/dL (70-99) Test 07/08/19 00:21 07/08/19 06:00 07/08/19 06:04 07/08/19 06:45 Glucose (Fingerstick) 259 mg/dL (70-99) 218 mg/dL (70-99) White Blood Count 16.8 x10^3/uL (4.0-11.0) Red Blood Count 3.26 x10^6/uL (3.50-5.40) Hemoglobin 10.8 g/dL (12.0-15.5) Hematocrit 32.0 % (36.0-47.0) Mean Corpuscular Volume 98 fL (79-100) Mean Corpuscular Hemoglobin 33 pg (25-35) Mean Corpuscular Hemoglobin Concent 34 g/dL (31-37) Red Cell Distribution Width 13.4 % (11.5-14.5) Platelet Count 141 x10^3/uL (140-400) Neutrophils (%) (Auto) 91 % (31-73) Lymphocytes (%) (Auto) 5 % (24-48) Monocytes (%) (Auto) 4 % (0-9) Eosinophils (%) (Auto) 0 % (0-3) Basophils (%) (Auto) 0 % (0-3) Neutrophils # (Auto) 15.3 x10^3/uL (1.8-7.7) Lymphocytes # (Auto) 0.8 x10^3/uL (1.0-4.8) Monocytes # (Auto) 0.7 x10^3/uL (0.0-1.1) Eosinophils # (Auto) 0.1 x10^3/uL (0.0-0.7) Basophils # (Auto) 0.0 x10^3/uL (0.0-0.2) Sodium Level 139 mmol/L (136-145) Potassium Level 2.4 mmol/L (3.5-5.1) Chloride Level 103 mmol/L (98-107) Carbon Dioxide Level 22 mmol/L (21-32) Anion Gap 14 (6-14) Blood Urea Nitrogen 41 mg/dL (7-20) Creatinine 5.0 mg/dL (0.6-1.0) Estimated GFR (Cockcroft-Gault) 9.2 BUN/Creatinine Ratio 8 (6-20) Glucose Level 219 mg/dL (70-99) Calcium Level < 5.0 mg/dL (8.5-10.1) Phosphorus Level 2.5 mg/dL (2.6-4.7) Magnesium Level 1.9 mg/dL (1.8-2.4) Total Bilirubin 0.5 mg/dL (0.2-1.0) Aspartate Amino Transf (AST/SGOT) 56 U/L (15-37) Alanine Aminotransferase (ALT/SGPT) 45 U/L (14-59) Alkaline Phosphatase 55 U/L (46-116) Total Protein 3.8 g/dL (6.4-8.2) Albumin 1.0 g/dL (3.4-5.0) Albumin/Globulin Ratio 0.4 (1.0-1.7) Triglycerides Level 214 mg/dL (0-150) Ionized Calcium < 0.25 mmol/L (1.13-1.32) Test 07/08/19 08:00 07/08/19 11:25 07/08/19 11:30 07/08/19 12:21 O2 Saturation 84 % (92-99) 99 % (92-99) Arterial Blood pH 7.36 (7.35-7.45) 7.42 (7.35-7.45) Arterial Blood pCO2 at Patient Temp 43 mmHg (35-46) 53 mmHg (35-46) Arterial Blood pO2 at Patient Temp 51 mmHg (75-108) 136 mmHg (75-108) Arterial Blood HCO3 24 mmol/L (21-28) 33 mmol/L (21-28) Arterial Blood Base Excess -2 mmol/L (-3-3) 7 mmol/L (-3-3) FiO2 Bipap 60% 60 Potassium Level 3.4 mmol/L (3.5-5.1) Glucose (Fingerstick) 135 mg/dL (70-99) Test 07/08/19 17:46 07/08/19 23:15 07/09/19 06:07 07/09/19 06:10 Glucose (Fingerstick) 261 mg/dL (70-99) 290 mg/dL (70-99) 239 mg/dL (70-99) White Blood Count 15.0 x10^3/uL (4.0-11.0) Red Blood Count 2.98 x10^6/uL (3.50-5.40) Hemoglobin 9.9 g/dL (12.0-15.5) Hematocrit 29.3 % (36.0-47.0) Mean Corpuscular Volume 98 fL (79-100) Mean Corpuscular Hemoglobin 33 pg (25-35) Mean Corpuscular Hemoglobin Concent 34 g/dL (31-37) Red Cell Distribution Width 13.4 % (11.5-14.5) Platelet Count 164 x10^3/uL (140-400) Sodium Level 138 mmol/L (136-145) Potassium Level 3.5 mmol/L (3.5-5.1) Chloride Level 102 mmol/L (98-107) Carbon Dioxide Level 28 mmol/L (21-32) Anion Gap 8 (6-14) Blood Urea Nitrogen 39 mg/dL (7-20) Creatinine 4.8 mg/dL (0.6-1.0) Estimated GFR (Cockcroft-Gault) 9.6 Glucose Level 263 mg/dL (70-99) Calcium Level 6.6 mg/dL (8.5-10.1) Phosphorus Level 3.4 mg/dL (2.6-4.7) Magnesium Level 2.2 mg/dL (1.8-2.4) Test 07/09/19 07:33 O2 Saturation 97 % (92-99) Arterial Blood pH 7.28 (7.35-7.45) Arterial Blood pCO2 at Patient Temp 54 mmHg (35-46) Arterial Blood pO2 at Patient Temp 107 mmHg (75-108) Arterial Blood HCO3 25 mmol/L (21-28) Arterial Blood Base Excess -2 mmol/L (-3-3) FiO2 40 Laboratory Tests Test 07/08/19 11:25 07/08/19 11:30 07/08/19 12:21 07/08/19 17:46 O2 Saturation 99 % (92-99) Arterial Blood pH 7.42 (7.35-7.45) Arterial Blood pCO2 at Patient Temp 53 mmHg (35-46) Arterial Blood pO2 at Patient Temp 136 mmHg (75-108) Arterial Blood HCO3 33 mmol/L (21-28) Arterial Blood Base Excess 7 mmol/L (-3-3) FiO2 60 Potassium Level 3.4 mmol/L (3.5-5.1) Glucose (Fingerstick) 135 mg/dL (70-99) 261 mg/dL (70-99) Test 07/08/19 23:15 07/09/19 06:07 07/09/19 06:10 07/09/19 07:33 Glucose (Fingerstick) 290 mg/dL (70-99) 239 mg/dL (70-99) White Blood Count 15.0 x10^3/uL (4.0-11.0) Red Blood Count 2.98 x10^6/uL (3.50-5.40) Hemoglobin 9.9 g/dL (12.0-15.5) Hematocrit 29.3 % (36.0-47.0) Mean Corpuscular Volume 98 fL (79-100) Mean Corpuscular Hemoglobin 33 pg (25-35) Mean Corpuscular Hemoglobin Concent 34 g/dL (31-37) Red Cell Distribution Width 13.4 % (11.5-14.5) Platelet Count 164 x10^3/uL (140-400) Sodium Level 138 mmol/L (136-145) Potassium Level 3.5 mmol/L (3.5-5.1) Chloride Level 102 mmol/L (98-107) Carbon Dioxide Level 28 mmol/L (21-32) Anion Gap 8 (6-14) Blood Urea Nitrogen 39 mg/dL (7-20) Creatinine 4.8 mg/dL (0.6-1.0) Estimated GFR (Cockcroft-Gault) 9.6 Glucose Level 263 mg/dL (70-99) Calcium Level 6.6 mg/dL (8.5-10.1) Phosphorus Level 3.4 mg/dL (2.6-4.7) Magnesium Level 2.2 mg/dL (1.8-2.4) O2 Saturation 97 % (92-99) Arterial Blood pH 7.28 (7.35-7.45) Arterial Blood pCO2 at Patient Temp 54 mmHg (35-46) Arterial Blood pO2 at Patient Temp 107 mmHg (75-108) Arterial Blood HCO3 25 mmol/L (21-28) Arterial Blood Base Excess -2 mmol/L (-3-3) FiO2 40 Microbiology 07/06/19 Blood Culture - Preliminary, Resulted NO GROWTH AFTER 3 DAYS Medications Current Medications Sodium Chloride 1,000 ml @ 1,000 mls/hr Q1H IV Last administered on 07/04/19at 03:00; Start 07/04/19 at 03:00; Stop 07/04/19 at 03:59; Status DC Ondansetron HCl (Zofran) 4 mg 1X ONCE IVP Last administered on 07/04/19at 03:27; Start 07/04/19 at 03:00; Stop 07/04/19 at 03:01; Status DC Morphine Sulfate (Morphine Sulfate) 4 mg 1X ONCE IV ; Start 07/04/19 at 03:00; Stop 07/04/19 at 03:01; Status Cancel Ketorolac Tromethamine (Toradol 30mg Vial) 30 mg 1X ONCE IV Last administered on 07/04/19at 02:54; Start 07/04/19 at 03:00; Stop 07/04/19 at 03:01; Status DC Fentanyl Citrate (Fentanyl 2ml Vial) 25 mcg 1X ONCE IVP Last administered on 07/04/19at 03:23; Start 07/04/19 at 03:30; Stop 07/04/19 at 03:31; Status DC Fentanyl Citrate (Fentanyl 2ml Vial) 100 mcg STK-MED ONCE .ROUTE ; Start 07/04/19 at 03:18; Stop 07/04/19 at 03:18; Status DC Iohexol (Omnipaque 350 Mg/ml) 90 ml 1X ONCE IV Last administered on 07/04/19at 03:25; Start 07/04/19 at 03:30; Stop 07/04/19 at 03:31; Status DC Info (CONTRAST GIVEN -- Rx MONITORING) 1 each PRN DAILY PRN MC SEE COMMENTS; Start 07/04/19 at 03:30; Stop 07/06/19 at 03:29; Status DC Hydromorphone HCl (Dilaudid) 0.5 mg 1X ONCE IV Last administered on 07/04/19at 03:55; Start 07/04/19 at 04:30; Stop 07/04/19 at 04:32; Status DC Ondansetron HCl (Zofran) 4 mg PRN Q8HRS PRN IV NAUSEA/VOMITING 1ST CHOICE; Start 07/04/19 at 05:00; Stop 07/04/19 at 09:27; Status DC Morphine Sulfate (Morphine Sulfate) 2 mg PRN Q2HR PRN IV SEVERE PAIN 7-10 Last administered on 07/05/19at 12:26; Start 07/04/19 at 05:00; Stop 07/05/19 at 14:15; Status DC Sodium Chloride 1,000 ml @ 125 mls/hr Q8H IV Last administered on 07/04/19at 20:56; Start 07/04/19 at 05:00; Stop 07/05/19 at 04:59; Status DC Hydromorphone HCl (Dilaudid) 0.5 mg PRN Q3HRS PRN IV SEVERE PAIN 7-10 Last administered on 07/05/19at 10:06; Start 07/04/19 at 05:00; Stop 07/05/19 at 12:01; Status DC Piperacillin Sod/ Tazobactam Sod 4.5 gm/Sodium Chloride 100 ml @ 200 mls/hr 1X ONCE IV Last administered on 07/04/19at 05:44; Start 07/04/19 at 06:00; Stop 07/04/19 at 06:29; Status DC Ondansetron HCl (Zofran) 4 mg PRN Q4HRS PRN IV NAUSEA/VOMITING 1ST CHOICE Last administered on 07/06/19at 23:56; Start 07/04/19 at 09:30 Insulin Human Lispro (HumaLOG) 0-9 UNITS Q6HRS SQ Last administered on 07/09/19at 06:00; Start 07/04/19 at 09:30 Dextrose (Dextrose 50%-Water Syringe) 12.5 gm PRN Q15MIN PRN IV SEE COMMENTS; Start 07/04/19 at 09:30 Pantoprazole Sodium (PROTONIX VIAL for IV PUSH) 40 mg DAILYAC IVP Last administered on 07/09/19at 07:43; Start 07/04/19 at 11:30 Prochlorperazine Edisylate (Compazine) 10 mg PRN Q6HRS PRN IV NAUSEA/VOMITING, 2nd CHOICE Last administered on 07/05/19at 00:42; Start 07/04/19 at 17:45 Atenolol (Tenormin) 100 mg DAILY PO ; Start 07/05/19 at 09:00; Stop 07/04/19 at 20:08; Status DC Metoprolol Tartrate (Lopressor Vial) 2.5 mg Q6HRS IVP Last administered on 07/05/19at 05:51; Start 07/04/19 at 20:15; Stop 07/05/19 at 10:02; Status DC Metoprolol Tartrate (Lopressor Vial) 5 mg Q6HRS IVP Last administered on 07/09/19at 06:02; Start 07/05/19 at 10:15 Hydromorphone HCl (Dilaudid) 1 mg PRN Q3HRS PRN IV SEVERE PAIN 7-10 Last administered on 07/09/19at 09:40; Start 07/05/19 at 12:00 Lidocaine HCl (Buffered Lidocaine 1%) 3 ml STK-MED ONCE .ROUTE ; Start 07/05/19 at 12:55; Stop 07/05/19 at 12:56; Status DC Albumin Human 500 ml @ 125 mls/hr 1X ONCE IV Last administered on 07/05/19at 14:33; Start 07/05/19 at 14:30; Stop 07/05/19 at 18:32; Status DC Norepinephrine Bitartrate 8 mg/ Dextrose 258 ml @ 17.299 mls/ hr CONT PRN IV PER PROTOCOL Last administered on 07/08/19at 21:02; Start 07/05/19 at 15:30 Sodium Chloride 1,000 ml @ 125 mls/hr Q8H IV Last administered on 07/05/19at 21:04; Start 07/05/19 at 16:00; Stop 07/06/19 at 02:42; Status DC Albumin Human 500 ml @ 125 mls/hr PRN BID PRN IV After every 2L NSS & BP < 90mm; Start 07/05/19 at 16:00 Iohexol (Omnipaque 300 Mg/ml) 60 ml 1X ONCE IV Last administered on 07/05/19at 17:20; Start 07/05/19 at 17:00; Stop 07/05/19 at 17:01; Status DC Info (CONTRAST GIVEN -- Rx MONITORING) 1 each PRN DAILY PRN MC SEE COMMENTS; Start 07/05/19 at 17:00; Stop 07/07/19 at 16:59; Status DC Meropenem 1 gm/ Sodium Chloride 100 ml @ 200 mls/hr Q8HRS IV Last administered on 07/06/19at 05:45; Start 07/05/19 at 20:00; Stop 07/06/19 at 08:48; Status DC Furosemide (Lasix) 40 mg 1X ONCE IVP Last administered on 07/05/19at 22:12; Start 07/05/19 at 22:30; Stop 07/05/19 at 22:31; Status DC Calcium Chloride 1000 mg/Sodium Chloride 110 ml @ 220 mls/hr 1X ONCE IV Last administered on 07/05/19at 22:11; Start 07/05/19 at 22:30; Stop 07/05/19 at 22:59; Status DC Albuterol Sulfate (Ventolin Neb Soln) 2.5 mg 1X ONCE NEB Last administered on 07/06/19at 00:56; Start 07/05/19 at 22:30; Stop 07/05/19 at 22:31; Status DC Insulin Human Regular (HumuLIN R VIAL) 5 unit 1X ONCE IV Last administered on 07/05/19at 22:14; Start 07/05/19 at 22:30; Stop 07/05/19 at 22:31; Status DC Magnesium Sulfate 50 ml @ 25 mls/hr 1X ONCE IV Last administered on 07/06/19at 02:57; Start 07/06/19 at 03:00; Stop 07/06/19 at 04:59; Status DC Calcium Gluconate 1000 mg/Sodium Chloride 110 ml @ 220 mls/hr 1X ONCE IV Last administered on 07/06/19at 02:46; Start 07/06/19 at 03:00; Stop 07/06/19 at 03:29; Status DC Sodium Chloride 1,000 ml @ 200 mls/hr Q5H IV Last administered on 07/06/19at 02:46; Start 07/06/19 at 03:00; Stop 07/06/19 at 10:21; Status DC Calcium Gluconate 1000 mg/Sodium Chloride 110 ml @ 220 mls/hr 1X ONCE IV Last administered on 07/06/19at 03:21; Start 07/06/19 at 03:30; Stop 07/06/19 at 03:59; Status DC Sodium Bicarbonate 50 meq/Sodium Chloride 1,050 ml @ 75 mls/hr Q14H IV Last administered on 07/08/19at 21:01; Start 07/06/19 at 07:30 Calcium Gluconate 2000 mg/Sodium Chloride 120 ml @ 220 mls/hr 1X ONCE IV Last administered on 07/06/19at 09:05; Start 07/06/19 at 07:30; Stop 07/06/19 at 08:02; Status DC Lidocaine HCl (Xylocaine-Mpf 1% 2ml Vial) 2 ml STK-MED ONCE .ROUTE ; Start 07/06/19 at 08:47; Stop 07/06/19 at 08:47; Status DC Meropenem 500 mg/ Sodium Chloride 50 ml @ 100 mls/hr Q12HR IV Last administered on 07/08/19at 21:01; Start 07/06/19 at 18:00 Lidocaine HCl (Buffered Lidocaine 1%) 3 ml STK-MED ONCE .ROUTE ; Start 07/06/19 at 09:46; Stop 07/06/19 at 09:46; Status DC Lidocaine HCl (Buffered Lidocaine 1%) 6 ml 1X ONCE INJ Last administered on 07/06/19at 10:26; Start 07/06/19 at 10:15; Stop 07/06/19 at 10:16; Status DC Info (Tpn Per Pharmacy) 1 each PRN DAILY PRN MC SEE COMMENTS Last administered on 07/08/19at 12:35; Start 07/06/19 at 12:00 Sodium Chloride 1,000 ml @ 1,000 mls/hr Q1H PRN IV hypotension; Start 07/06/19 at 12:07; Stop 07/06/19 at 18:06; Status DC Diphenhydramine HCl (Benadryl) 25 mg 1X PRN PRN IV ITCHING; Start 07/06/19 at 12:15; Stop 07/07/19 at 12:14; Status DC Diphenhydramine HCl (Benadryl) 25 mg 1X PRN PRN IV ITCHING; Start 07/06/19 at 12:15; Stop 07/07/19 at 12:14; Status DC Sodium Chloride 1,000 ml @ 400 mls/hr Q2H30M PRN IV PATENCY; Start 07/06/19 at 12:07; Stop 07/07/19 at 00:06; Status DC Info (PHARMACY MONITORING -- do not chart) 1 each PRN DAILY PRN MC SEE COMMENTS; Start 07/06/19 at 12:15; Stop 07/08/19 at 08:13; Status DC Sodium Chloride 90 meq/Calcium Gluconate 10 meq/ Multivitamins 10 ml/Chromium/ Copper/Manganese/ Seleni/Zn 1 ml/ Total Parenteral Nutrition/Amino Acids/Dextrose/ Fat Emulsion Intravenous 55.005 ml @ 2.292 mls/hr TPN CONT IV ; Start 07/06/19 at 22:00; Stop 07/06/19 at 12:33; Status DC Info (Tpn Per Pharmacy) 1 each PRN DAILY PRN MC SEE COMMENTS; Start 07/06/19 at 12:30; Status UNV Sodium Chloride 90 meq/Calcium Gluconate 10 meq/ Multivitamins 10 ml/Chromium/ Copper/Manganese/ Seleni/Zn 0.5 ml/ Total Parenteral Nutrition/Amino Acids/Dextrose/ Fat Emulsion Intravenous 1,512 ml @ 63 mls/hr TPN CONT IV Last administered on 07/06/19at 22:06; Start 07/06/19 at 22:00; Stop 07/07/19 at 21:59; Status DC Calcium Carbonate/ Glycine (Tums) 500 mg PRN AFTMEALHC PRN PO INDIGESTION; Start 07/06/19 at 17:45 Calcium Gluconate (Calcium Gluconate) 2,000 mg 1X ONCE IVP Last administered on 07/07/19at 02:19; Start 07/07/19 at 02:15; Stop 07/07/19 at 02:16; Status DC Calcium Chloride 3000 mg/Sodium Chloride 1,030 ml @ 50 mls/hr [id number] IV Last administered on 07/09/19at 02:17; Start 07/07/19 at 08:00 Lorazepam (Ativan Inj) 1 mg PRN Q4HRS PRN IVP ANXIETY / AGITATION Last administered on 07/09/19at 04:10; Start 07/07/19 at 09:00 Sodium Chloride 1,000 ml @ 1,000 mls/hr Q1H PRN IV hypotension; Start 07/07/19 at 08:56; Stop 07/07/19 at 14:55; Status DC Albumin Human 200 ml @ 200 mls/hr 1X PRN PRN IV Hypotension; Start 07/07/19 at 09:00; Stop 07/07/19 at 14:59; Status DC Diphenhydramine HCl (Benadryl) 25 mg 1X PRN PRN IV ITCHING; Start 07/07/19 at 09:00; Stop 07/08/19 at 08:59; Status DC Diphenhydramine HCl (Benadryl) 25 mg 1X PRN PRN IV ITCHING; Start 07/07/19 at 09:00; Stop 07/08/19 at 08:59; Status DC Sodium Chloride 1,000 ml @ 400 mls/hr Q2H30M PRN IV PATENCY; Start 07/07/19 at 08:56; Stop 07/07/19 at 20:55; Status DC Info (PHARMACY MONITORING -- do not chart) 1 each PRN DAILY PRN MC SEE COMMENTS; Start 07/07/19 at 09:00; Status UNV Info (PHARMACY MONITORING -- do not chart) 1 each PRN DAILY PRN MC SEE COMMENTS; Start 07/07/19 at 09:00; Stop 07/08/19 at 08:13; Status DC Digoxin (Lanoxin) 500 mcg 1X ONCE IV Last administered on 07/07/19at 10:04; Start 07/07/19 at 10:00; Stop 07/07/19 at 10:01; Status DC Digoxin (Lanoxin) 125 mcg 1X ONCE IV Last administered on 07/07/19at 17:10; Start 07/07/19 at 18:00; Stop 07/07/19 at 18:01; Status DC Magnesium Sulfate 100 ml @ 25 mls/hr 1X ONCE IV Last administered on 07/07/19at 12:48; Start 07/07/19 at 13:00; Stop 07/07/19 at 16:59; Status DC Sodium Chloride 90 meq/Magnesium Sulfate 10 meq/ Calcium Gluconate 20 meq/ Multivitamins 10 ml/Chromium/ Copper/Manganese/ Seleni/Zn 0.5 ml/ Total Parenteral Nutrition/Amino Acids/Dextrose/ Fat Emulsion Intravenous 1,512 ml @ 63 mls/hr TPN CONT IV Last administered on 07/07/19at 22:25; Start 07/07/19 at 22:00; Stop 07/08/19 at 21:59; Status DC Sodium Chloride 1,000 ml @ 1,000 mls/hr Q1H PRN IV hypotension; Start 07/08/19 at 08:05; Stop 07/08/19 at 14:04; Status DC Albumin Human 200 ml @ 200 mls/hr 1X ONCE IV Last administered on 07/08/19at 08:57; Start 07/08/19 at 08:15; Stop 07/08/19 at 09:14; Status DC Diphenhydramine HCl (Benadryl) 25 mg 1X PRN PRN IV ITCHING; Start 07/08/19 at 08:15; Stop 07/09/19 at 08:14; Status DC Diphenhydramine HCl (Benadryl) 25 mg 1X PRN PRN IV ITCHING; Start 07/08/19 at 08:15; Stop 07/09/19 at 08:14; Status DC Sodium Chloride 1,000 ml @ 400 mls/hr Q2H30M PRN IV PATENCY; Start 07/08/19 at 08:05; Stop 07/08/19 at 20:04; Status DC Info (PHARMACY MONITORING -- do not chart) 1 each PRN DAILY PRN MC SEE COMMENTS; Start 07/08/19 at 08:15 Sodium Chloride 90 meq/Potassium Chloride 15 meq/ Potassium Phosphate 10 mmol/ Magnesium Sulfate 10 meq/Calcium Gluconate 20 meq/ Multivitamins 10 ml/Chromium/ Copper/Manganese/ Seleni/Zn 0.5 ml/ Total Parenteral Nutrition/Amino Acids/Dextrose/ Fat Emulsion Intravenous 1,512 ml @ 63 mls/hr TPN CONT IV Last administered on 07/08/19at 21:01; Start 07/08/19 at 22:00; Stop 07/09/19 at 21:59 Potassium Chloride/Water 100 ml @ 100 mls/hr 1X ONCE IV Last administered on 07/08/19at 14:09; Start 07/08/19 at 14:00; Stop 07/08/19 at 14:59; Status DC Benzocaine (Hurricaine One) 1 spray 1X ONCE MM Last administered on 07/08/19at 16:38; Start 07/08/19 at 14:30; Stop 07/08/19 at 14:31; Status DC Lidocaine HCl (Glydo (Lidocaine) Jelly) 1 ramu 1X ONCE MM Last administered on 07/08/19at 16:38; Start 07/08/19 at 14:30; Stop 07/08/19 at 14:31; Status DC Linezolid/Dextrose 300 ml @ 300 mls/hr Q12HR IV Last administered on 07/08/19at 21:01; Start 07/08/19 at 20:00 Acetaminophen (Tylenol) 650 mg PRN Q6HRS PRN PO MILD PAIN / TEMP; Start 07/09/19 at 03:30; Stop 07/09/19 at 03:36; Status DC Acetaminophen (Tylenol) 650 mg PRN Q6HRS PRN PEG MILD PAIN / TEMP Last administered on 07/09/19at 04:10; Start 07/09/19 at 03:36 Sodium Chloride 1,000 ml @ 1,000 mls/hr Q1H PRN IV hypotension; Start 07/09/19 at 07:50; Stop 07/09/19 at 13:49 Albumin Human 200 ml @ 200 mls/hr 1X PRN PRN IV Hypotension; Start 07/09/19 at 08:00; Stop 07/09/19 at 13:59 Sodium Chloride (Normal Saline Flush) 10 ml 1X PRN PRN IV AP catheter pack; Start 07/09/19 at 08:00; Stop 07/10/19 at 07:59 Sodium Chloride (Normal Saline Flush) 10 ml 1X PRN PRN IV [employer] catheter pack; Start 07/09/19 at 08:00; Stop 07/10/19 at 07:59 Sodium Chloride 1,000 ml @ 400 mls/hr Q2H30M PRN IV PATENCY; Start 07/09/19 at 07:50; Stop 07/09/19 at 19:49 Info (PHARMACY MONITORING -- do not chart) 1 each PRN DAILY PRN MC SEE COMMENTS; Start 07/09/19 at 08:00; Status UNV Info (PHARMACY MONITORING -- do not chart) 1 each PRN DAILY PRN MC SEE COMMENTS; Start 07/09/19 at 08:00 Active Scripts Active Reported Bisoprolol Fumarate 5 Mg Tablet 10 Mg PO DAILY Vitals/I & O Vital Sign - Last 24 Hours 07/08/19 07/08/19 07/08/19 07/08/19 12:00 12:00 12:00 12:20 Temp 98.2 98.2 Pulse 115 145 Resp 21 B/P (MAP) 88/55 115/70 (85) Pulse Ox 98 91 O2 Delivery Bi-pap BiPAP/CPAP BiPAP/CPAP 07/08/19 07/08/19 07/08/19 07/08/19 13:00 13:45 14:00 14:00 Temp 100.4 100.3 100.4 100.3 Pulse 130 130 Resp 26 26 18 B/P (MAP) 130/62 (84) 113/56 (75) Pulse Ox 98 98 100 93 O2 Delivery BiPAP/CPAP BiPAP/CPAP BiPAP/CPAP 07/08/19 07/08/19 07/08/19 07/08/19 14:15 15:00 16:03 16:05 Temp 100.9 100.9 Pulse 128 128 Resp 17 17 17 B/P (MAP) 105/55 (72) 107/57 (74) Pulse Ox 100 100 100 O2 Delivery BiPAP/CPAP BiPAP/CPAP BiPAP/CPAP Bi-pap 07/08/19 07/08/19 07/08/19 07/08/19 16:14 16:37 17:00 17:07 Temp 100.7 100.7 Pulse 135 Resp 17 20 B/P (MAP) 106/58 (74) Pulse Ox 100 100 99 99 O2 Delivery BiPAP/CPAP BiPAP/CPAP BiPAP/CPAP BiPAP/CPAP 07/08/19 07/08/19 07/08/19 07/08/19 18:00 18:00 18:23 19:00 Temp 100.2 100.2 Pulse 130 128 137 Resp 20 24 B/P (MAP) 102/74 102/53 (69) 96/48 (64) Pulse Ox 99 100 98 O2 Delivery BiPAP/CPAP BiPAP/CPAP BiPAP/CPAP 07/08/19 07/08/19 07/08/19 07/08/19 19:31 20:00 20:00 20:00 Temp 100.8 100.8 Pulse 135 Resp 24 24 B/P (MAP) 106/59 (75) Pulse Ox 100 99 O2 Delivery BiPAP/CPAP BiPAP/CPAP Bi-pap 07/08/19 07/08/19 07/08/19 07/08/19 20:30 20:31 21:00 22:00 Pulse 132 141 Resp 20 20 25 B/P (MAP) 114/81 (92) 125/71 (89) Pulse Ox 100 98 97 97 O2 Delivery BiPAP/CPAP BiPAP/CPAP BiPAP/CPAP BiPAP/CPAP 07/08/19 07/08/19 07/08/19 07/08/19 23:00 23:12 23:12 23:46 Pulse 114 141 Resp 14 24 14 B/P (MAP) 104/56 (72) 104/59 Pulse Ox 97 97 95 O2 Delivery BiPAP/CPAP BiPAP/CPAP BiPAP/CPAP 07/08/19 07/09/19 07/09/19 07/09/19 23:55 00:00 00:00 00:00 Temp 100.5 100.5 Pulse 124 Resp 15 B/P (MAP) 89/57 (68) Pulse Ox 96 97 O2 Delivery BiPAP/CPAP BiPAP/CPAP Bi-pap 07/09/19 07/09/19 07/09/19 07/09/19 01:00 01:36 02:00 02:17 Pulse 124 129 Resp 21 24 24 B/P (MAP) 99/61 (74) 102/58 (73) Pulse Ox 99 96 96 96 O2 Delivery BiPAP/CPAP BiPAP/CPAP BiPAP/CPAP BiPAP/CPAP 07/09/19 07/09/19 07/09/19 07/09/19 02:50 03:00 04:00 04:00 Temp 101.7 101.7 Pulse 134 139 Resp 17 16 26 B/P (MAP) 94/59 (71) 112/66 (81) Pulse Ox 97 96 94 O2 Delivery BiPAP/CPAP BiPAP/CPAP BiPAP/CPAP 07/09/19 07/09/19 07/09/19 07/09/19 04:00 04:05 05:00 06:00 Pulse 134 105 Resp 16 22 B/P (MAP) 95/58 (70) 90/55 (67) Pulse Ox 97 96 95 O2 Delivery Bi-pap BiPAP/CPAP BiPAP/CPAP BiPAP/CPAP 3/07/09/19 07/09/19 07/09/19 06:02 06:02 06:38 07:00 Pulse 125 113 Resp 20 14 13 B/P (MAP) 109/63 96/59 (71) Pulse Ox 99 99 100 O2 Delivery BiPAP/CPAP Ventilator BiPAP/CPAP 07/09/19 07/09/19 07/09/19 07/09/19 07:23 07:59 08:00 08:00 Temp 98.9 98.9 Pulse 113 113 Resp 14 B/P (MAP) 103/59 (74) 103/59 (74) Pulse Ox 97 100 O2 Delivery BiPAP/CPAP Bi-pap BiPAP/CPAP 07/09/19 07/09/19 07/09/19 08:55 09:00 09:40 Pulse 112 Resp 17 28 B/P (MAP) 111/57 (75) Pulse Ox 98 98 98 O2 Delivery BiPAP/CPAP BiPAP/CPAP Intake and Output 07/08/19 07/08/19 07/09/19 15:00 23:00 07:00 Intake Total 300 ml 3275.3 ml 1280.1 ml Output Total 20 ml 920 ml 40 ml Balance 280 ml 2355.3 ml 1240.1 ml Hemodynamically unstable?: Yes Is patient in severe pain?: Yes Is NPO status required?: Yes DAVIN LANDEROS MD Jul 09, 2019 11:11
--- NOTE | 2019-07-09 12:27 | PDOC ---
G I PROGRESS NOTE Subjective Moaning. Lethargic. Did not communicate. Physical Exam Lungs with occ exp wheeze. RRR, tachy. Abdomen doughy, no bowel sounds heard. Review of Relevant I have reviewed the following items kolby (where applicable) has been applied. Labs Laboratory Tests Test 07/07/19 16:45 07/07/19 17:07 07/08/19 00:21 07/08/19 06:00 O2 Saturation 97 % (92-99) Arterial Blood pH 7.46 (7.35-7.45) Arterial Blood pCO2 at Patient Temp 33 mmHg (35-46) Arterial Blood pO2 at Patient Temp 88 mmHg (75-108) Arterial Blood HCO3 23 mmol/L (21-28) Arterial Blood Base Excess 0 mmol/L (-3-3) FiO2 60 Glucose (Fingerstick) 237 mg/dL (70-99) 259 mg/dL (70-99) White Blood Count 16.8 x10^3/uL (4.0-11.0) Red Blood Count 3.26 x10^6/uL (3.50-5.40) Hemoglobin 10.8 g/dL (12.0-15.5) Hematocrit 32.0 % (36.0-47.0) Mean Corpuscular Volume 98 fL (79-100) Mean Corpuscular Hemoglobin 33 pg (25-35) Mean Corpuscular Hemoglobin Concent 34 g/dL (31-37) Red Cell Distribution Width 13.4 % (11.5-14.5) Platelet Count 141 x10^3/uL (140-400) Neutrophils (%) (Auto) 91 % (31-73) Lymphocytes (%) (Auto) 5 % (24-48) Monocytes (%) (Auto) 4 % (0-9) Eosinophils (%) (Auto) 0 % (0-3) Basophils (%) (Auto) 0 % (0-3) Neutrophils # (Auto) 15.3 x10^3/uL (1.8-7.7) Lymphocytes # (Auto) 0.8 x10^3/uL (1.0-4.8) Monocytes # (Auto) 0.7 x10^3/uL (0.0-1.1) Eosinophils # (Auto) 0.1 x10^3/uL (0.0-0.7) Basophils # (Auto) 0.0 x10^3/uL (0.0-0.2) Sodium Level 139 mmol/L (136-145) Potassium Level 2.4 mmol/L (3.5-5.1) Chloride Level 103 mmol/L (98-107) Carbon Dioxide Level 22 mmol/L (21-32) Anion Gap 14 (6-14) Blood Urea Nitrogen 41 mg/dL (7-20) Creatinine 5.0 mg/dL (0.6-1.0) Estimated GFR (Cockcroft-Gault) 9.2 BUN/Creatinine Ratio 8 (6-20) Glucose Level 219 mg/dL (70-99) Calcium Level < 5.0 mg/dL (8.5-10.1) Phosphorus Level 2.5 mg/dL (2.6-4.7) Magnesium Level 1.9 mg/dL (1.8-2.4) Total Bilirubin 0.5 mg/dL (0.2-1.0) Aspartate Amino Transf (AST/SGOT) 56 U/L (15-37) Alanine Aminotransferase (ALT/SGPT) 45 U/L (14-59) Alkaline Phosphatase 55 U/L (46-116) Total Protein 3.8 g/dL (6.4-8.2) Albumin 1.0 g/dL (3.4-5.0) Albumin/Globulin Ratio 0.4 (1.0-1.7) Triglycerides Level 214 mg/dL (0-150) Test 07/08/19 06:04 07/08/19 06:45 07/08/19 08:00 07/08/19 11:25 Glucose (Fingerstick) 218 mg/dL (70-99) Ionized Calcium < 0.25 mmol/L (1.13-1.32) O2 Saturation 84 % (92-99) 99 % (92-99) Arterial Blood pH 7.36 (7.35-7.45) 7.42 (7.35-7.45) Arterial Blood pCO2 at Patient Temp 43 mmHg (35-46) 53 mmHg (35-46) Arterial Blood pO2 at Patient Temp 51 mmHg (75-108) 136 mmHg (75-108) Arterial Blood HCO3 24 mmol/L (21-28) 33 mmol/L (21-28) Arterial Blood Base Excess -2 mmol/L (-3-3) 7 mmol/L (-3-3) FiO2 Bipap 60% 60 Test 07/08/19 11:30 07/08/19 12:21 07/08/19 17:46 07/08/19 23:15 Potassium Level 3.4 mmol/L (3.5-5.1) Glucose (Fingerstick) 135 mg/dL (70-99) 261 mg/dL (70-99) 290 mg/dL (70-99) Test 07/09/19 06:07 07/09/19 06:10 07/09/19 07:33 07/09/19 12:13 Glucose (Fingerstick) 239 mg/dL (70-99) 137 mg/dL (70-99) White Blood Count 15.0 x10^3/uL (4.0-11.0) Red Blood Count 2.98 x10^6/uL (3.50-5.40) Hemoglobin 9.9 g/dL (12.0-15.5) Hematocrit 29.3 % (36.0-47.0) Mean Corpuscular Volume 98 fL (79-100) Mean Corpuscular Hemoglobin 33 pg (25-35) Mean Corpuscular Hemoglobin Concent 34 g/dL (31-37) Red Cell Distribution Width 13.4 % (11.5-14.5) Platelet Count 164 x10^3/uL (140-400) Sodium Level 138 mmol/L (136-145) Potassium Level 3.5 mmol/L (3.5-5.1) Chloride Level 102 mmol/L (98-107) Carbon Dioxide Level 28 mmol/L (21-32) Anion Gap 8 (6-14) Blood Urea Nitrogen 39 mg/dL (7-20) Creatinine 4.8 mg/dL (0.6-1.0) Estimated GFR (Cockcroft-Gault) 9.6 Glucose Level 263 mg/dL (70-99) Calcium Level 6.6 mg/dL (8.5-10.1) Phosphorus Level 3.4 mg/dL (2.6-4.7) Magnesium Level 2.2 mg/dL (1.8-2.4) O2 Saturation 97 % (92-99) Arterial Blood pH 7.28 (7.35-7.45) Arterial Blood pCO2 at Patient Temp 54 mmHg (35-46) Arterial Blood pO2 at Patient Temp 107 mmHg (75-108) Arterial Blood HCO3 25 mmol/L (21-28) Arterial Blood Base Excess -2 mmol/L (-3-3) FiO2 40 Laboratory Tests Test 07/08/19 17:46 07/08/19 23:15 07/09/19 06:07 07/09/19 06:10 Glucose (Fingerstick) 261 mg/dL (70-99) 290 mg/dL (70-99) 239 mg/dL (70-99) White Blood Count 15.0 x10^3/uL (4.0-11.0) Red Blood Count 2.98 x10^6/uL (3.50-5.40) Hemoglobin 9.9 g/dL (12.0-15.5) Hematocrit 29.3 % (36.0-47.0) Mean Corpuscular Volume 98 fL (79-100) Mean Corpuscular Hemoglobin 33 pg (25-35) Mean Corpuscular Hemoglobin Concent 34 g/dL (31-37) Red Cell Distribution Width 13.4 % (11.5-14.5) Platelet Count 164 x10^3/uL (140-400) Sodium Level 138 mmol/L (136-145) Potassium Level 3.5 mmol/L (3.5-5.1) Chloride Level 102 mmol/L (98-107) Carbon Dioxide Level 28 mmol/L (21-32) Anion Gap 8 (6-14) Blood Urea Nitrogen 39 mg/dL (7-20) Creatinine 4.8 mg/dL (0.6-1.0) Estimated GFR (Cockcroft-Gault) 9.6 Glucose Level 263 mg/dL (70-99) Calcium Level 6.6 mg/dL (8.5-10.1) Phosphorus Level 3.4 mg/dL (2.6-4.7) Magnesium Level 2.2 mg/dL (1.8-2.4) Test 07/09/19 07:33 07/09/19 12:13 O2 Saturation 97 % (92-99) Arterial Blood pH 7.28 (7.35-7.45) Arterial Blood pCO2 at Patient Temp 54 mmHg (35-46) Arterial Blood pO2 at Patient Temp 107 mmHg (75-108) Arterial Blood HCO3 25 mmol/L (21-28) Arterial Blood Base Excess -2 mmol/L (-3-3) FiO2 40 Glucose (Fingerstick) 137 mg/dL (70-99) Microbiology 07/06/19 Blood Culture - Preliminary, Resulted NO GROWTH AFTER 3 DAYS Vitals/I & O Vital Sign - Last 24 Hours 07/08/19 07/08/19 07/08/19 07/08/19 13:00 13:45 14:00 14:00 Temp 100.4 100.3 100.4 100.3 Pulse 130 130 Resp 26 26 18 B/P (MAP) 130/62 (84) 113/56 (75) Pulse Ox 98 98 100 93 O2 Delivery BiPAP/CPAP BiPAP/CPAP BiPAP/CPAP 07/08/19 07/08/19 07/08/19 07/08/19 14:15 15:00 16:03 16:05 Temp 100.9 100.9 Pulse 128 128 Resp 17 17 17 B/P (MAP) 105/55 (72) 107/57 (74) Pulse Ox 100 100 100 O2 Delivery BiPAP/CPAP BiPAP/CPAP BiPAP/CPAP Bi-pap 07/08/19 07/08/19 07/08/19 07/08/19 16:14 16:37 17:00 17:07 Temp 100.7 100.7 Pulse 135 Resp 17 20 B/P (MAP) 106/58 (74) Pulse Ox 100 100 99 99 O2 Delivery BiPAP/CPAP BiPAP/CPAP BiPAP/CPAP BiPAP/CPAP 07/08/19 07/08/19 07/08/19 07/08/19 18:00 18:00 18:23 19:00 Temp 100.2 100.2 Pulse 130 128 137 Resp 20 24 B/P (MAP) 102/74 102/53 (69) 96/48 (64) Pulse Ox 99 100 98 O2 Delivery BiPAP/CPAP BiPAP/CPAP BiPAP/CPAP 07/08/19 07/08/19 07/08/19 07/08/19 19:31 20:00 20:00 20:00 Temp 100.8 100.8 Pulse 135 Resp 24 24 B/P (MAP) 106/59 (75) Pulse Ox 100 99 O2 Delivery BiPAP/CPAP BiPAP/CPAP Bi-pap 07/08/19 07/08/19 07/08/19 07/08/19 20:30 20:31 21:00 22:00 Pulse 132 141 Resp 20 20 25 B/P (MAP) 114/81 (92) 125/71 (89) Pulse Ox 100 98 97 97 O2 Delivery BiPAP/CPAP BiPAP/CPAP BiPAP/CPAP BiPAP/CPAP 07/08/19 07/08/19 07/08/19 07/08/19 23:00 23:12 23:12 23:46 Pulse 114 141 Resp 14 24 14 B/P (MAP) 104/56 (72) 104/59 Pulse Ox 97 97 95 O2 Delivery BiPAP/CPAP BiPAP/CPAP BiPAP/CPAP 07/08/19 07/09/19 07/09/19 07/09/19 23:55 00:00 00:00 00:00 Temp 100.5 100.5 Pulse 124 Resp 15 B/P (MAP) 89/57 (68) Pulse Ox 96 97 O2 Delivery BiPAP/CPAP BiPAP/CPAP Bi-pap 07/09/19 07/09/19 07/09/19 07/09/19 01:00 01:36 02:00 02:17 Pulse 124 129 Resp 21 24 24 B/P (MAP) 99/61 (74) 102/58 (73) Pulse Ox 99 96 96 96 O2 Delivery BiPAP/CPAP BiPAP/CPAP BiPAP/CPAP BiPAP/CPAP 07/09/19 07/09/19 07/09/19 07/09/19 02:50 03:00 04:00 04:00 Temp 101.7 101.7 Pulse 134 139 Resp 17 16 26 B/P (MAP) 94/59 (71) 112/66 (81) Pulse Ox 97 96 94 O2 Delivery BiPAP/CPAP BiPAP/CPAP BiPAP/CPAP 07/09/19 07/09/19 07/09/19 07/09/19 04:00 04:05 05:00 06:00 Pulse 134 105 Resp 16 22 B/P (MAP) 95/58 (70) 90/55 (67) Pulse Ox 97 96 95 O2 Delivery Bi-pap BiPAP/CPAP BiPAP/CPAP BiPAP/CPAP 07/09/19 07/09/19 07/09/19 07/09/19 06:02 06:02 06:38 07:00 Pulse 125 113 Resp 20 14 13 B/P (MAP) 109/63 96/59 (71) Pulse Ox 99 99 100 O2 Delivery BiPAP/CPAP Ventilator BiPAP/CPAP 07/09/19 07/09/19 07/09/19 07/09/19 07:23 07:59 08:00 08:00 Temp 98.9 98.9 Pulse 113 113 Resp 14 B/P (MAP) 103/59 (74) 103/59 (74) Pulse Ox 97 100 O2 Delivery BiPAP/CPAP Bi-pap BiPAP/CPAP 07/09/19 07/09/19 07/09/19 07/09/19 08:55 09:00 09:40 10:00 Pulse 112 124 Resp 17 28 17 B/P (MAP) 111/57 (75) 119/65 (83) Pulse Ox 98 98 98 98 O2 Delivery BiPAP/CPAP BiPAP/CPAP BiPAP/CPAP 07/09/19 07/09/19 07/09/19 07/09/19 10:10 11:00 11:18 12:00 Pulse 137 139 Resp 17 28 B/P (MAP) 124/61 (82) 132/53 (79) Pulse Ox 98 97 98 O2 Delivery BiPAP/CPAP BiPAP/CPAP BiPAP/CPAP 07/09/19 07/09/19 12:00 12:00 Temp 99.0 99.0 Pulse 137 Resp 28 B/P (MAP) 124/61 (82) Pulse Ox 97 O2 Delivery Bi-pap BiPAP/CPAP Intake and Output 07/08/19 07/08/19 07/09/19 15:00 23:00 07:00 Intake Total 300 ml 3275.3 ml 1280.1 ml Output Total 20 ml 920 ml 40 ml Balance 280 ml 2355.3 ml 1240.1 ml Problem List Problems Medical Problems: (1) Acute pancreatitis Status: Acute (2) Cholelithiasis Status: Acute Assessment Biliary pancreatitis, necrotizing, with MOSF Plan of Care Note Continue support. Repeat CT next week. Hemodynamically unstable?: Yes Is patient in severe pain?: Yes Is NPO status required?: Yes MARY RIVAS MD Jul 09, 2019 12:27
[2019-07-09] MEDS: TPN PER PHARMACY MC PRN (12:39)
[2019-07-09] MEDS: MEROPENEM 500 MG in IV NORMAL SALINE 50ML 50 ML IV SCH ×2 (12:53→20:57)
--- NOTE | 2019-07-09 15:22 | PDOC ---
Renal-Progress Notes Subjective Notes Notes NO CHANGE History of Present Illness Hx of present illness STABLE Vitals Vitals Vital Signs Date Time Temp Pulse Resp B/P (MAP) Pulse Ox O2 Delivery O2 Flow Rate FiO2 07/09/19 15:00 130 20 119/51 (73) 97 BiPAP/CPAP 07/09/19 12:00 99.0 99.0 Weight Weight [ ] I.O. Intake and Output Intake and Output 07/09/19 07:00 Intake Total 4855.4 ml Output Total 980 ml Balance 3875.4 ml Intake Oral 0 ml IV Total 4855.4 ml Output Urine Total 80 ml Stool Total 900 ml Labs Labs Laboratory Tests Test 07/08/19 17:46 07/08/19 23:15 07/09/19 06:07 07/09/19 06:10 Glucose (Fingerstick) 261 mg/dL (70-99) 290 mg/dL (70-99) 239 mg/dL (70-99) White Blood Count 15.0 x10^3/uL (4.0-11.0) Red Blood Count 2.98 x10^6/uL (3.50-5.40) Hemoglobin 9.9 g/dL (12.0-15.5) Hematocrit 29.3 % (36.0-47.0) Mean Corpuscular Volume 98 fL (79-100) Mean Corpuscular Hemoglobin 33 pg (25-35) Mean Corpuscular Hemoglobin Concent 34 g/dL (31-37) Red Cell Distribution Width 13.4 % (11.5-14.5) Platelet Count 164 x10^3/uL (140-400) Sodium Level 138 mmol/L (136-145) Potassium Level 3.5 mmol/L (3.5-5.1) Chloride Level 102 mmol/L (98-107) Carbon Dioxide Level 28 mmol/L (21-32) Anion Gap 8 (6-14) Blood Urea Nitrogen 39 mg/dL (7-20) Creatinine 4.8 mg/dL (0.6-1.0) Estimated GFR (Cockcroft-Gault) 9.6 Glucose Level 263 mg/dL (70-99) Calcium Level 6.6 mg/dL (8.5-10.1) Phosphorus Level 3.4 mg/dL (2.6-4.7) Magnesium Level 2.2 mg/dL (1.8-2.4) Test 07/09/19 07:33 07/09/19 12:13 O2 Saturation 97 % (92-99) Arterial Blood pH 7.28 (7.35-7.45) Arterial Blood pCO2 at Patient Temp 54 mmHg (35-46) Arterial Blood pO2 at Patient Temp 107 mmHg (75-108) Arterial Blood HCO3 25 mmol/L (21-28) Arterial Blood Base Excess -2 mmol/L (-3-3) FiO2 40 Glucose (Fingerstick) 137 mg/dL (70-99) Micro Micro Microbiology 07/06/19 Blood Culture - Preliminary, Resulted NO GROWTH AFTER 3 DAYS Review of Systems Constitutional: yes: other (DIFFICULT TO OBTAIN) Physical Exam General Appearance: moderate distress Skin: warm Respiratory: decreased breath sounds Heart: S1S2 Abdomen: soft, bowel sounds present Genitourinary: bladder flat Extremities: pulses present Neurology: alert Assessment Assessment IMP [id number] HYPERKALEMIA-BETTER ACIDOSIS AND ACIDEMIA ACUTE REPS FAILURE ACUTE PANCREATITIS HYPOALBUMINEMIA HYPOCALCEMIA-BETTER PLAN TPN STOP CALCIUM REPLACEMENT HD TO CORRECT ACID BASE AND LYTES CONT HCO3 GTT ON BIPAP MAY NEED VENT SUPPORT WILL FOLLOW DONI GARCIA MD Jul 09, 2019 15:22
[2019-07-09] MEDS: SODIUM BICARBONATE VIAL 50 MEQ in IV 1/2 NORMAL SALINE 1,000 ML IV SCH (16:05)
[2019-07-09] MEDS: ONDANSETRON PF 4 MG/2 ML VIAL. IV PRN (16:15)
[2019-07-09 16:31] LABS: BASE EXCESS ABG 7 mmol/L (-3-3); HCO3 ABG 33 mmol/L (21-28); PCO2 ABG 56 mmHg (35-46); PO2 ABG 71 mmHg (75-108); SAT O2 ABG 93 % (92-99)
[2019-07-09 16:33] LABS: FIO2 ABG 40
[2019-07-09] MEDS ORDERED: DEXTROSE 70% IV SCH ×10 (22:00)
[2019-07-09] MEDS ORDERED: TOTAL PARENTERAL NUTRITION IV SCH ×10 (22:00)
[2019-07-09] MEDS ORDERED: [UNRECOGNIZED DRUG - OTHER] IV SCH ×10 (22:00)
[2019-07-09] MEDS ORDERED: AMINO ACID IV SCH ×10 (22:00)
[2019-07-10] VITALS (24 sets, daily range): BP systolic 90–150; BP diastolic 50–80
[2019-07-10] MEDS: HYDROmorphone 2 MG/ML VIAL IV PRN ×7 (00:04→21:27)
[2019-07-10] MEDS: METOPROLOL TARTRATE 5 MG/5 ML VIAL. IVP SCH ×4 (00:04→18:11)
[2019-07-10] MEDS: INSULIN LISPRO 300 UNITS/3 ML VIAL. SQ SCH ×4 (00:08→18:19)
[2019-07-10] MEDS: SODIUM BICARBONATE VIAL 50 MEQ in IV 1/2 NORMAL SALINE 1,000 ML IV SCH ×2 (03:25→21:10)
[2019-07-10 06:57] LABS: CALCIUM 6.6 mg/dL (8.5-10.1); GFR 11.9; MAGNESIUM 2.1 mg/dL (1.8-2.4); PHOSPHORUS 2.8 mg/dL (2.6-4.7); POTASSIUM 3.5 mmol/L (3.5-5.1)
[2019-07-10] MEDS: PANTOPRAZOLE IV PUSH 40 MG VIAL. IVP SCH (07:57)
[2019-07-10] MEDS: MEROPENEM 500 MG in IV NORMAL SALINE 50ML 50 ML IV SCH ×2 (07:57→21:09)
--- NOTE | 2019-07-10 08:33 | PDOC ---
PULMONARY PROGRESS NOTES Subjective on bipap, more alert, has abd pain, on diladid, t max 100.2, had HD yesterday Vitals Vital Signs Date Time Temp Pulse Resp B/P (MAP) Pulse Ox O2 Delivery O2 Flow Rate FiO2 07/10/19 08:00 100.2 114 20 98/58 (71) 98 BiPAP/CPAP 100.2 Comments discussed w rn, palomo as mentioned as above other sys otherwise neg more alert on bipap HEENT: Other (nc at perrl bipap mask on neck no lad no thyromegaly) Lungs: Crackles, Other (dull at bases) Cardiovascular: S1, S2 Abdomen: Other (distended, diffuse pain no mass) Extremities: No Edema Skin: Warm Labs Laboratory Tests Test 07/08/19 11:25 07/08/19 11:30 07/08/19 12:21 07/08/19 16:30 O2 Saturation 99 % (92-99) 93 % (92-99) Arterial Blood pH 7.42 (7.35-7.45) 7.38 (7.35-7.45) Arterial Blood pCO2 at Patient Temp 53 mmHg (35-46) 56 mmHg (35-46) Arterial Blood pO2 at Patient Temp 136 mmHg (75-108) 71 mmHg (75-108) Arterial Blood HCO3 33 mmol/L (21-28) 33 mmol/L (21-28) Arterial Blood Base Excess 7 mmol/L (-3-3) 7 mmol/L (-3-3) FiO2 60 40 Potassium Level 3.4 mmol/L (3.5-5.1) Glucose (Fingerstick) 135 mg/dL (70-99) Test 07/08/19 17:46 07/08/19 23:15 07/09/19 06:07 07/09/19 06:10 Glucose (Fingerstick) 261 mg/dL (70-99) 290 mg/dL (70-99) 239 mg/dL (70-99) White Blood Count 15.0 x10^3/uL (4.0-11.0) Red Blood Count 2.98 x10^6/uL (3.50-5.40) Hemoglobin 9.9 g/dL (12.0-15.5) Hematocrit 29.3 % (36.0-47.0) Mean Corpuscular Volume 98 fL (79-100) Mean Corpuscular Hemoglobin 33 pg (25-35) Mean Corpuscular Hemoglobin Concent 34 g/dL (31-37) Red Cell Distribution Width 13.4 % (11.5-14.5) Platelet Count 164 x10^3/uL (140-400) Sodium Level 138 mmol/L (136-145) Potassium Level 3.5 mmol/L (3.5-5.1) Chloride Level 102 mmol/L (98-107) Carbon Dioxide Level 28 mmol/L (21-32) Anion Gap 8 (6-14) Blood Urea Nitrogen 39 mg/dL (7-20) Creatinine 4.8 mg/dL (0.6-1.0) Estimated GFR (Cockcroft-Gault) 9.6 Glucose Level 263 mg/dL (70-99) Calcium Level 6.6 mg/dL (8.5-10.1) Phosphorus Level 3.4 mg/dL (2.6-4.7) Magnesium Level 2.2 mg/dL (1.8-2.4) Test 07/09/19 07:33 07/09/19 12:13 07/10/19 00:07 07/10/19 06:30 O2 Saturation 97 % (92-99) Arterial Blood pH 7.28 (7.35-7.45) Arterial Blood pCO2 at Patient Temp 54 mmHg (35-46) Arterial Blood pO2 at Patient Temp 107 mmHg (75-108) Arterial Blood HCO3 25 mmol/L (21-28) Arterial Blood Base Excess -2 mmol/L (-3-3) FiO2 40 Glucose (Fingerstick) 137 mg/dL (70-99) 274 mg/dL (70-99) Sodium Level 138 mmol/L (136-145) Potassium Level 3.5 mmol/L (3.5-5.1) Chloride Level 100 mmol/L (98-107) Carbon Dioxide Level 31 mmol/L (21-32) Anion Gap 7 (6-14) Blood Urea Nitrogen 36 mg/dL (7-20) Creatinine 4.0 mg/dL (0.6-1.0) Estimated GFR (Cockcroft-Gault) 11.9 Glucose Level 229 mg/dL (70-99) Calcium Level 6.6 mg/dL (8.5-10.1) Phosphorus Level 2.8 mg/dL (2.6-4.7) Magnesium Level 2.1 mg/dL (1.8-2.4) Test 07/10/19 06:33 Glucose (Fingerstick) 208 mg/dL (70-99) Laboratory Tests Test 07/09/19 12:13 07/10/19 00:07 07/10/19 06:30 07/10/19 06:33 Glucose (Fingerstick) 137 mg/dL (70-99) 274 mg/dL (70-99) 208 mg/dL (70-99) Sodium Level 138 mmol/L (136-145) Potassium Level 3.5 mmol/L (3.5-5.1) Chloride Level 100 mmol/L (98-107) Carbon Dioxide Level 31 mmol/L (21-32) Anion Gap 7 (6-14) Blood Urea Nitrogen 36 mg/dL (7-20) Creatinine 4.0 mg/dL (0.6-1.0) Estimated GFR (Cockcroft-Gault) 11.9 Glucose Level 229 mg/dL (70-99) Calcium Level 6.6 mg/dL (8.5-10.1) Phosphorus Level 2.8 mg/dL (2.6-4.7) Magnesium Level 2.1 mg/dL (1.8-2.4) Medications Active Scripts Medications Dose Route/Sig Max Daily Dose Days Date Category Bisoprolol Fumarate 5 Mg Tablet 10 Mg PO DAILY 07/04/19 Reported Comments reviewed cxr 07/08 Continued presence of bibasilar infiltrates and pleural effusions without interval change. Impression . IMPRESSION: 1. Acute hypoxemic respiratory failure secondary to acute pancreatitis, sepsis, abdominal distention, and pneumonia. 2. Gallstone pancreatitis. 3. Severe metabolic acidosis. 4. Acute kidney injury. ON HD 5. Acute gallstone pancreatitis. 6. Hypoalbuminemia. 7. Hypocalcemia. Plan . cont bipap night, setting reviewed, slightly better today still febrile, ct in am 02 titration BD avoid over sedation elevate hob protonix scds for prophylaxis HD PER NEPHRO TPN FOLLOW SURGERY INPUT discussed w TEN Toth MD Jul 10, 2019 08:33
--- NOTE | 2019-07-10 09:03 | PDOC ---
Infectious Disease Note Subjective Subjective Fever Tmax 100.2 Remains on BiPAP FiO2 40% Off Levophed gtt TPN ROS ROS unobtainable Vital Sign Vital Signs Vital Signs Date Time Temp Pulse Resp B/P (MAP) Pulse Ox O2 Delivery O2 Flow Rate FiO2 07/10/19 08:00 100.2 114 20 98/58 (71) 98 BiPAP/CPAP 100.2 Physical Exam PHYSICAL EXAM GENERAL: Lethargic, on BiPAP, + mitts, calm HEENT: Mild icterus. Oral mucosa very dry. NECK: Supple. LUNGS: Decreased breath sounds at the bases. Soft wheezes HEART: S1, S2, tachycardia, 110s, regular ABDOMEN: Distended, moans to palpation, reproducible, + BS. Rectal tube in place : Lind EXTREMITIES: Trace edema, no cyanosis. DERMATOLOGIC: Warm and dry. No generalized rash. CENTRAL NERVOUS SYSTEM: Extremely lethargic RUE-PICC, RIJ/Temp HDC & LIJ without signs of complications Labs Lab Laboratory Tests Test 07/09/19 12:13 07/10/19 00:07 07/10/19 06:30 07/10/19 06:33 Glucose (Fingerstick) 137 mg/dL (70-99) 274 mg/dL (70-99) 208 mg/dL (70-99) Sodium Level 138 mmol/L (136-145) Potassium Level 3.5 mmol/L (3.5-5.1) Chloride Level 100 mmol/L (98-107) Carbon Dioxide Level 31 mmol/L (21-32) Anion Gap 7 (6-14) Blood Urea Nitrogen 36 mg/dL (7-20) Creatinine 4.0 mg/dL (0.6-1.0) Estimated GFR (Cockcroft-Gault) 11.9 Glucose Level 229 mg/dL (70-99) Calcium Level 6.6 mg/dL (8.5-10.1) Phosphorus Level 2.8 mg/dL (2.6-4.7) Magnesium Level 2.1 mg/dL (1.8-2.4) Micro Microbiology 07/06/19 Blood Culture - Preliminary, Resulted NO GROWTH AFTER 3 DAYS Objective Assessment Fever Acute pancreatitis, early developing necrosis Cholelithiasis Leucocytosis - trending down JUANA, hyperkalemia, metabolic acidosis on HD Acute hypoxic resp failure, bilateral pleural effusion on BiPAP Hypotension - off Levophed Hypocalcemia Prediabetes HTN Plan Plan of Care cont merrem, renal dosing and Zyvox (07/07) f/u labs and cults No surgical plans at this time Labs in am CBC with diff/CMP/lipase Electrolytes per primary CT in am Critically ill D/w nursing Attending Co-Sign Attending Co-Sign The patient was seen and interviewed as well as examined at the bedside. The chart was reviewed. The case was discussed. Agree with the plan of care. FRANCA HOBSON APRN Jul 10, 2019 09:03 WILLY BARAKAT MD Jul 10, 2019 13:58
--- NOTE | 2019-07-10 09:48 | PDOC ---
PROGRESS NOTES Chief Complaint Chief Complaint A/P: Acute 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 GI, ID, and general surgery consulted. Will keep NPO, pain control. Calculus of gallbladder with acute cholecystitis without obstruction - with secondary pancreatitis. Lap ronel is indicated, will need to await pancreatitis resolution Prediabetes - will keep on sliding scale HTN - cont prn hydralazine Sepsis - with acute pancreatitis as end organ dysfunction, sign of infection, zyvox, merrem Acute kidney failure now requiring dialysis Salpingitis Uterine fibroid Hypoxia with respiratory failure - requiring bipap, likely pulmonary edema related to pancreatitis, sepsis Intractable pain Intractable nausea FEN - NPO PPX - heparin FULL CODE Dispo - inpatient for 2 midnights. Transferred to ICU for worsening pancreatitis symptoms CC time 45 minutes History of Present Illness History of Present Illness Ms Diaz is a 48yo F w/ PMHx HTN, prediabetes who presents the emergency room complaints of abdominal pain. Patient described off and on 3 days. She states is constant, described as a squeezing sensation in a band-like distribution. + nausea, vomiting. She denies any fever or diarrhea. Patient denies any abdominal surgical procedures. She states is worse with movements, car ride. Pain initially was upper abdomen however now pretty much generalized. Last bowel movement was 07/03/2019. Nothing makes her pain better. Patient denies any shortness of breath. She does state the pain moves into her chest. Denies any headache or visual changes. Lipase 12533, AST 401, ALT 249, Bilirubin 1.4. CT abdomen confirms pancreatic inflammation, peripancreatic fluid and inflam matory changes around the pancreas consistent with pancreatitis. Cholelithiasis and 1.4cm uterine fibroid as well as possible left salpingitis. Admitted for further care GI, General surgery, ID, Pulm consulted. 07/04: Overnight per report no urine output. Added dilaudid for pain, PICC placed per IR. Renal US negative.Seen bedside in ICU, given 2L additional NSS and albumin infusion. Still hypotensive, started on levophed. Repeat CT abdomen with necrosis. Updated her fiancee 07/05: Sats are only 87% on nasal cannula oxygen. Dialysis catheter per nephrology 07/06: She is now on BiPAP appears more ill, now on dialysis 07/07: Seen on BiPAP. Her mother and another family member are present and seemed to be good support for her. Currently on dialysis. Appears critically ill 07/08: Overnight Tmax 101.7 , still on BiPAP FiO2 40%, still on low dose Levophed gtt, TPN initiated. On dialysis Overnight still febrile. Dialysis today. She wakes up and responds to pain. No CP. Vitals Vitals Vital Signs Date Time Temp Pulse Resp B/P (MAP) Pulse Ox O2 Delivery O2 Flow Rate FiO2 07/10/19 09:00 121 26 97/54 (68) 98 BiPAP/CPAP 07/10/19 08:00 100.2 100.2 Physical Exam Physical Exam GENERAL: Lethargic, on BiPAP, + mitts, calm HEENT: Mild icterus. Oral mucosa very dry. NECK: Supple. LUNGS: Decreased breath sounds at the bases. Soft wheezes HEART: S1, S2, tachycardia, 110s, regular ABDOMEN: Distended, moans to palpation, reproducible, + BS. Rectal tube in place : Lind EXTREMITIES: Trace edema, no cyanosis. DERMATOLOGIC: Warm and dry. No generalized rash. CENTRAL NERVOUS SYSTEM: Extremely lethargic RUE-PICC, RIJ/Temp HDC & LIJ without signs of complications General: Other (ill appearing ) Heart: Other (increased rate) Lungs: Crackles Abdomen: Other (obese,soft) Extremities: No edema, Other (SOME CLUBBING ) Skin: No rashes, No breakdown, No significant lesion Labs LABS Laboratory Tests Test 07/09/19 12:13 07/10/19 00:07 07/10/19 06:30 07/10/19 06:33 Glucose (Fingerstick) 137 mg/dL (70-99) 274 mg/dL (70-99) 208 mg/dL (70-99) Sodium Level 138 mmol/L (136-145) Potassium Level 3.5 mmol/L (3.5-5.1) Chloride Level 100 mmol/L (98-107) Carbon Dioxide Level 31 mmol/L (21-32) Anion Gap 7 (6-14) Blood Urea Nitrogen 36 mg/dL (7-20) Creatinine 4.0 mg/dL (0.6-1.0) Estimated GFR (Cockcroft-Gault) 11.9 Glucose Level 229 mg/dL (70-99) Calcium Level 6.6 mg/dL (8.5-10.1) Phosphorus Level 2.8 mg/dL (2.6-4.7) Magnesium Level 2.1 mg/dL (1.8-2.4) Assessment and Plan Assessmemt and Plan Problems Medical Problems: (1) Acute pancreatitis Status: Acute (2) Cholelithiasis Status: Acute Comment Review of Relevant I have reviewed the following items kolby (where applicable) has been applied. Labs Laboratory Tests Test 07/08/19 11:25 07/08/19 11:30 07/08/19 12:21 07/08/19 16:30 O2 Saturation 99 % (92-99) 93 % (92-99) Arterial Blood pH 7.42 (7.35-7.45) 7.38 (7.35-7.45) Arterial Blood pCO2 at Patient Temp 53 mmHg (35-46) 56 mmHg (35-46) Arterial Blood pO2 at Patient Temp 136 mmHg (75-108) 71 mmHg (75-108) Arterial Blood HCO3 33 mmol/L (21-28) 33 mmol/L (21-28) Arterial Blood Base Excess 7 mmol/L (-3-3) 7 mmol/L (-3-3) FiO2 60 40 Potassium Level 3.4 mmol/L (3.5-5.1) Glucose (Fingerstick) 135 mg/dL (70-99) Test 07/08/19 17:46 07/08/19 23:15 07/09/19 06:07 07/09/19 06:10 Glucose (Fingerstick) 261 mg/dL (70-99) 290 mg/dL (70-99) 239 mg/dL (70-99) White Blood Count 15.0 x10^3/uL (4.0-11.0) Red Blood Count 2.98 x10^6/uL (3.50-5.40) Hemoglobin 9.9 g/dL (12.0-15.5) Hematocrit 29.3 % (36.0-47.0) Mean Corpuscular Volume 98 fL (79-100) Mean Corpuscular Hemoglobin 33 pg (25-35) Mean Corpuscular Hemoglobin Concent 34 g/dL (31-37) Red Cell Distribution Width 13.4 % (11.5-14.5) Platelet Count 164 x10^3/uL (140-400) Sodium Level 138 mmol/L (136-145) Potassium Level 3.5 mmol/L (3.5-5.1) Chloride Level 102 mmol/L (98-107) Carbon Dioxide Level 28 mmol/L (21-32) Anion Gap 8 (6-14) Blood Urea Nitrogen 39 mg/dL (7-20) Creatinine 4.8 mg/dL (0.6-1.0) Estimated GFR (Cockcroft-Gault) 9.6 Glucose Level 263 mg/dL (70-99) Calcium Level 6.6 mg/dL (8.5-10.1) Phosphorus Level 3.4 mg/dL (2.6-4.7) Magnesium Level 2.2 mg/dL (1.8-2.4) Test 07/09/19 07:33 07/09/19 12:13 07/10/19 00:07 07/10/19 06:30 O2 Saturation 97 % (92-99) Arterial Blood pH 7.28 (7.35-7.45) Arterial Blood pCO2 at Patient Temp 54 mmHg (35-46) Arterial Blood pO2 at Patient Temp 107 mmHg (75-108) Arterial Blood HCO3 25 mmol/L (21-28) Arterial Blood Base Excess -2 mmol/L (-3-3) FiO2 40 Glucose (Fingerstick) 137 mg/dL (70-99) 274 mg/dL (70-99) Sodium Level 138 mmol/L (136-145) Potassium Level 3.5 mmol/L (3.5-5.1) Chloride Level 100 mmol/L (98-107) Carbon Dioxide Level 31 mmol/L (21-32) Anion Gap 7 (6-14) Blood Urea Nitrogen 36 mg/dL (7-20) Creatinine 4.0 mg/dL (0.6-1.0) Estimated GFR (Cockcroft-Gault) 11.9 Glucose Level 229 mg/dL (70-99) Calcium Level 6.6 mg/dL (8.5-10.1) Phosphorus Level 2.8 mg/dL (2.6-4.7) Magnesium Level 2.1 mg/dL (1.8-2.4) Test 07/10/19 06:33 Glucose (Fingerstick) 208 mg/dL (70-99) Laboratory Tests Test 07/09/19 12:13 07/10/19 00:07 07/10/19 06:30 07/10/19 06:33 Glucose (Fingerstick) 137 mg/dL (70-99) 274 mg/dL (70-99) 208 mg/dL (70-99) Sodium Level 138 mmol/L (136-145) Potassium Level 3.5 mmol/L (3.5-5.1) Chloride Level 100 mmol/L (98-107) Carbon Dioxide Level 31 mmol/L (21-32) Anion Gap 7 (6-14) Blood Urea Nitrogen 36 mg/dL (7-20) Creatinine 4.0 mg/dL (0.6-1.0) Estimated GFR (Cockcroft-Gault) 11.9 Glucose Level 229 mg/dL (70-99) Calcium Level 6.6 mg/dL (8.5-10.1) Phosphorus Level 2.8 mg/dL (2.6-4.7) Magnesium Level 2.1 mg/dL (1.8-2.4) Microbiology 07/06/19 Blood Culture - Preliminary, Resulted NO GROWTH AFTER 4 DAYS Medications Current Medications Sodium Chloride 1,000 ml @ 1,000 mls/hr Q1H IV Last administered on 07/04/19at 03:00; Start 07/04/19 at 03:00; Stop 07/04/19 at 03:59; Status DC Ondansetron HCl (Zofran) 4 mg 1X ONCE IVP Last administered on 07/04/19at 03:27; Start 07/04/19 at 03:00; Stop 07/04/19 at 03:01; Status DC Morphine Sulfate (Morphine Sulfate) 4 mg 1X ONCE IV ; Start 07/04/19 at 03:00; Stop 07/04/19 at 03:01; Status Cancel Ketorolac Tromethamine (Toradol 30mg Vial) 30 mg 1X ONCE IV Last administered on 07/04/19at 02:54; Start 07/04/19 at 03:00; Stop 07/04/19 at 03:01; Status DC Fentanyl Citrate (Fentanyl 2ml Vial) 25 mcg 1X ONCE IVP Last administered on 07/04/19at 03:23; Start 07/04/19 at 03:30; Stop 07/04/19 at 03:31; Status DC Fentanyl Citrate (Fentanyl 2ml Vial) 100 mcg STK-MED ONCE .ROUTE ; Start 07/04/19 at 03:18; Stop 07/04/19 at 03:18; Status DC Iohexol (Omnipaque 350 Mg/ml) 90 ml 1X ONCE IV Last administered on 07/04/19at 03:25; Start 07/04/19 at 03:30; Stop 07/04/19 at 03:31; Status DC Info (CONTRAST GIVEN -- Rx MONITORING) 1 each PRN DAILY PRN MC SEE COMMENTS; Start 07/04/19 at 03:30; Stop 07/06/19 at 03:29; Status DC Hydromorphone HCl (Dilaudid) 0.5 mg 1X ONCE IV Last administered on 07/04/19at 03:55; Start 07/04/19 at 04:30; Stop 07/04/19 at 04:32; Status DC Ondansetron HCl (Zofran) 4 mg PRN Q8HRS PRN IV NAUSEA/VOMITING 1ST CHOICE; Start 07/04/19 at 05:00; Stop 07/04/19 at 09:27; Status DC Morphine Sulfate (Morphine Sulfate) 2 mg PRN Q2HR PRN IV SEVERE PAIN 7-10 Last administered on 07/05/19at 12:26; Start 07/04/19 at 05:00; Stop 07/05/19 at 14:15; Status DC Sodium Chloride 1,000 ml @ 125 mls/hr Q8H IV Last administered on 07/04/19at 20:56; Start 07/04/19 at 05:00; Stop 07/05/19 at 04:59; Status DC Hydromorphone HCl (Dilaudid) 0.5 mg PRN Q3HRS PRN IV SEVERE PAIN 7-10 Last administered on 07/05/19at 10:06; Start 07/04/19 at 05:00; Stop 07/05/19 at 12:01; Status DC Piperacillin Sod/ Tazobactam Sod 4.5 gm/Sodium Chloride 100 ml @ 200 mls/hr 1X ONCE IV Last administered on 07/04/19at 05:44; Start 07/04/19 at 06:00; Stop 07/04/19 at 06:29; Status DC Ondansetron HCl (Zofran) 4 mg PRN Q4HRS PRN IV NAUSEA/VOMITING 1ST CHOICE Last administered on 07/09/19at 16:15; Start 07/04/19 at 09:30 Insulin Human Lispro (HumaLOG) 0-9 UNITS Q6HRS SQ Last administered on 07/10/19at 06:39; Start 07/04/19 at 09:30 Dextrose (Dextrose 50%-Water Syringe) 12.5 gm PRN Q15MIN PRN IV SEE COMMENTS; Start 07/04/19 at 09:30 Pantoprazole Sodium (PROTONIX VIAL for IV PUSH) 40 mg DAILYAC IVP Last administered on 07/10/19at 07:57; Start 07/04/19 at 11:30 Prochlorperazine Edisylate (Compazine) 10 mg PRN Q6HRS PRN IV NAUSEA/VOMITING, 2nd CHOICE Last administered on 07/05/19at 00:42; Start 07/04/19 at 17:45 Atenolol (Tenormin) 100 mg DAILY PO ; Start 07/05/19 at 09:00; Stop 07/04/19 at 20:08; Status DC Metoprolol Tartrate (Lopressor Vial) 2.5 mg Q6HRS IVP Last administered on 07/05/19at 05:51; Start 07/04/19 at 20:15; Stop 07/05/19 at 10:02; Status DC Metoprolol Tartrate (Lopressor Vial) 5 mg Q6HRS IVP Last administered on 07/10/19at 06:16; Start 07/05/19 at 10:15 Hydromorphone HCl (Dilaudid) 1 mg PRN Q3HRS PRN IV SEVERE PAIN 7-10 Last administered on 07/10/19at 06:15; Start 07/05/19 at 12:00 Lidocaine HCl (Buffered Lidocaine 1%) 3 ml STK-MED ONCE .ROUTE ; Start 07/05/19 at 12:55; Stop 07/05/19 at 12:56; Status DC Albumin Human 500 ml @ 125 mls/hr 1X ONCE IV Last administered on 07/05/19at 14:33; Start 07/05/19 at 14:30; Stop 07/05/19 at 18:32; Status DC Norepinephrine Bitartrate 8 mg/ Dextrose 258 ml @ 17.299 mls/ hr CONT PRN IV PER PROTOCOL Last administered on 07/08/19at 21:02; Start 07/05/19 at 15:30 Sodium Chloride 1,000 ml @ 125 mls/hr Q8H IV Last administered on 07/05/19at 21:04; Start 07/05/19 at 16:00; Stop 07/06/19 at 02:42; Status DC Albumin Human 500 ml @ 125 mls/hr PRN BID PRN IV After every 2L NSS & BP < 90mm; Start 07/05/19 at 16:00 Iohexol (Omnipaque 300 Mg/ml) 60 ml 1X ONCE IV Last administered on 07/05/19at 17:20; Start 07/05/19 at 17:00; Stop 07/05/19 at 17:01; Status DC Info (CONTRAST GIVEN -- Rx MONITORING) 1 each PRN DAILY PRN MC SEE COMMENTS; Start 07/05/19 at 17:00; Stop 07/07/19 at 16:59; Status DC Meropenem 1 gm/ Sodium Chloride 100 ml @ 200 mls/hr Q8HRS IV Last administered on 07/06/19at 05:45; Start 07/05/19 at 20:00; Stop 07/06/19 at 08:48; Status DC Furosemide (Lasix) 40 mg 1X ONCE IVP Last administered on 07/05/19at 22:12; Start 07/05/19 at 22:30; Stop 07/05/19 at 22:31; Status DC Calcium Chloride 1000 mg/Sodium Chloride 110 ml @ 220 mls/hr 1X ONCE IV Last administered on 07/05/19at 22:11; Start 07/05/19 at 22:30; Stop 07/05/19 at 22:59; Status DC Albuterol Sulfate (Ventolin Neb Soln) 2.5 mg 1X ONCE NEB Last administered on 07/06/19at 00:56; Start 07/05/19 at 22:30; Stop 07/05/19 at 22:31; Status DC Insulin Human Regular (HumuLIN R VIAL) 5 unit 1X ONCE IV Last administered on 07/05/19at 22:14; Start 07/05/19 at 22:30; Stop 07/05/19 at 22:31; Status DC Magnesium Sulfate 50 ml @ 25 mls/hr 1X ONCE IV Last administered on 07/06/19at 02:57; Start 07/06/19 at 03:00; Stop 07/06/19 at 04:59; Status DC Calcium Gluconate 1000 mg/Sodium Chloride 110 ml @ 220 mls/hr 1X ONCE IV Last administered on 07/06/19at 02:46; Start 07/06/19 at 03:00; Stop 07/06/19 at 03:29; Status DC Sodium Chloride 1,000 ml @ 200 mls/hr Q5H IV Last administered on 07/06/19at 02:46; Start 07/06/19 at 03:00; Stop 07/06/19 at 10:21; Status DC Calcium Gluconate 1000 mg/Sodium Chloride 110 ml @ 220 mls/hr 1X ONCE IV Last administered on 07/06/19at 03:21; Start 07/06/19 at 03:30; Stop 07/06/19 at 03:59; Status DC Sodium Bicarbonate 50 meq/Sodium Chloride 1,050 ml @ 75 mls/hr Q14H IV Last administered on 07/10/19at 03:25; Start 07/06/19 at 07:30 Calcium Gluconate 2000 mg/Sodium Chloride 120 ml @ 220 mls/hr 1X ONCE IV Last administered on 07/06/19at 09:05; Start 07/06/19 at 07:30; Stop 07/06/19 at 08:02; Status DC Lidocaine HCl (Xylocaine-Mpf 1% 2ml Vial) 2 ml STK-MED ONCE .ROUTE ; Start 07/06/19 at 08:47; Stop 07/06/19 at 08:47; Status DC Meropenem 500 mg/ Sodium Chloride 50 ml @ 100 mls/hr Q12HR IV Last administered on 07/10/19at 07:57; Start 07/06/19 at 18:00 Lidocaine HCl (Buffered Lidocaine 1%) 3 ml STK-MED ONCE .ROUTE ; Start 07/06/19 at 09:46; Stop 07/06/19 at 09:46; Status DC Lidocaine HCl (Buffered Lidocaine 1%) 6 ml 1X ONCE INJ Last administered on 07/06/19at 10:26; Start 07/06/19 at 10:15; Stop 07/06/19 at 10:16; Status DC Info (Tpn Per Pharmacy) 1 each PRN DAILY PRN MC SEE COMMENTS Last administered on 07/09/19at 12:39; Start 07/06/19 at 12:00 Sodium Chloride 1,000 ml @ 1,000 mls/hr Q1H PRN IV hypotension; Start 07/06/19 at 12:07; Stop 07/06/19 at 18:06; Status DC Diphenhydramine HCl (Benadryl) 25 mg 1X PRN PRN IV ITCHING; Start 07/06/19 at 12:15; Stop 07/07/19 at 12:14; Status DC Diphenhydramine HCl (Benadryl) 25 mg 1X PRN PRN IV ITCHING; Start 07/06/19 at 12:15; Stop 07/07/19 at 12:14; Status DC Sodium Chloride 1,000 ml @ 400 mls/hr Q2H30M PRN IV PATENCY; Start 07/06/19 at 12:07; Stop 07/07/19 at 00:06; Status DC Info (PHARMACY MONITORING -- do not chart) 1 each PRN DAILY PRN MC SEE COMMENTS; Start 07/06/19 at 12:15; Stop 07/08/19 at 08:13; Status DC Sodium Chloride 90 meq/Calcium Gluconate 10 meq/ Multivitamins 10 ml/Chromium/ Copper/Manganese/ Seleni/Zn 1 ml/ Total Parenteral Nutrition/Amino Acids/Dextrose/ Fat Emulsion Intravenous 55.005 ml @ 2.292 mls/hr TPN CONT IV ; Start 07/06/19 at 22:00; Stop 07/06/19 at 12:33; Status DC Info (Tpn Per Pharmacy) 1 each PRN DAILY PRN MC SEE COMMENTS; Start 07/06/19 at 12:30; Status UNV Sodium Chloride 90 meq/Calcium Gluconate 10 meq/ Multivitamins 10 ml/Chromium/ Copper/Manganese/ Seleni/Zn 0.5 ml/ Total Parenteral Nutrition/Amino Acids/Dextrose/ Fat Emulsion Intravenous 1,512 ml @ 63 mls/hr TPN CONT IV Last administered on 07/06/19at 22:06; Start 07/06/19 at 22:00; Stop 07/07/19 at 21:59; Status DC Calcium Carbonate/ Glycine (Tums) 500 mg PRN AFTMEALHC PRN PO INDIGESTION; Start 07/06/19 at 17:45 Calcium Gluconate (Calcium Gluconate) 2,000 mg 1X ONCE IVP Last administered on 07/07/19at 02:19; Start 07/07/19 at 02:15; Stop 07/07/19 at 02:16; Status DC Calcium Chloride 3000 mg/Sodium Chloride 1,030 ml @ 50 mls/hr [id number] IV Last administered on 07/09/19at 02:17; Start 07/07/19 at 08:00; Stop 07/09/19 at 15:23; Status DC Lorazepam (Ativan Inj) 1 mg PRN Q4HRS PRN IVP ANXIETY / AGITATION Last administered on 07/10/19at 04:40; Start 07/07/19 at 09:00 Sodium Chloride 1,000 ml @ 1,000 mls/hr Q1H PRN IV hypotension; Start 07/07/19 at 08:56; Stop 07/07/19 at 14:55; Status DC Albumin Human 200 ml @ 200 mls/hr 1X PRN PRN IV Hypotension; Start 07/07/19 at 09:00; Stop 07/07/19 at 14:59; Status DC Diphenhydramine HCl (Benadryl) 25 mg 1X PRN PRN IV ITCHING; Start 07/07/19 at 09:00; Stop 07/08/19 at 08:59; Status DC Diphenhydramine HCl (Benadryl) 25 mg 1X PRN PRN IV ITCHING; Start 07/07/19 at 09:00; Stop 07/08/19 at 08:59; Status DC Sodium Chloride 1,000 ml @ 400 mls/hr Q2H30M PRN IV PATENCY; Start 07/07/19 at 08:56; Stop 07/07/19 at 20:55; Status DC Info (PHARMACY MONITORING -- do not chart) 1 each PRN DAILY PRN MC SEE COMMENTS; Start 07/07/19 at 09:00; Status UNV Info (PHARMACY MONITORING -- do not chart) 1 each PRN DAILY PRN MC SEE COMMENTS; Start 07/07/19 at 09:00; Stop 07/08/19 at 08:13; Status DC Digoxin (Lanoxin) 500 mcg 1X ONCE IV Last administered on 07/07/19at 10:04; Start 07/07/19 at 10:00; Stop 07/07/19 at 10:01; Status DC Digoxin (Lanoxin) 125 mcg 1X ONCE IV Last administered on 07/07/19at 17:10; Start 07/07/19 at 18:00; Stop 07/07/19 at 18:01; Status DC Magnesium Sulfate 100 ml @ 25 mls/hr 1X ONCE IV Last administered on 07/07/19at 12:48; Start 07/07/19 at 13:00; Stop 07/07/19 at 16:59; Status DC Sodium Chloride 90 meq/Magnesium Sulfate 10 meq/ Calcium Gluconate 20 meq/ Multivitamins 10 ml/Chromium/ Copper/Manganese/ Seleni/Zn 0.5 ml/ Total Parenteral Nutrition/Amino Acids/Dextrose/ Fat Emulsion Intravenous 1,512 ml @ 63 mls/hr TPN CONT IV Last administered on 07/07/19at 22:25; Start 07/07/19 at 22:00; Stop 07/08/19 at 21:59; Status DC Sodium Chloride 1,000 ml @ 1,000 mls/hr Q1H PRN IV hypotension; Start 07/08/19 at 08:05; Stop 07/08/19 at 14:04; Status DC Albumin Human 200 ml @ 200 mls/hr 1X ONCE IV Last administered on 07/08/19at 08:57; Start 07/08/19 at 08:15; Stop 07/08/19 at 09:14; Status DC Diphenhydramine HCl (Benadryl) 25 mg 1X PRN PRN IV ITCHING; Start 07/08/19 at 08:15; Stop 07/09/19 at 08:14; Status DC Diphenhydramine HCl (Benadryl) 25 mg 1X PRN PRN IV ITCHING; Start 07/08/19 at 08:15; Stop 07/09/19 at 08:14; Status DC Sodium Chloride 1,000 ml @ 400 mls/hr Q2H30M PRN IV PATENCY; Start 07/08/19 at 08:05; Stop 07/08/19 at 20:04; Status DC Info (PHARMACY MONITORING -- do not chart) 1 each PRN DAILY PRN MC SEE COMMENTS; Start 07/08/19 at 08:15 Sodium Chloride 90 meq/Potassium Chloride 15 meq/ Potassium Phosphate 10 mmol/ Magnesium Sulfate 10 meq/Calcium Gluconate 20 meq/ Multivitamins 10 ml/Chromium/ Copper/Manganese/ Seleni/Zn 0.5 ml/ Total Parenteral Nutrition/Amino Acids/Dextrose/ Fat Emulsion Intravenous 1,512 ml @ 63 mls/hr TPN CONT IV Last administered on 07/08/19at 21:01; Start 07/08/19 at 22:00; Stop 07/09/19 at 21:59; Status DC Potassium Chloride/Water 100 ml @ 100 mls/hr 1X ONCE IV Last administered on 07/08/19at 14:09; Start 07/08/19 at 14:00; Stop 07/08/19 at 14:59; Status DC Benzocaine (Hurricaine One) 1 spray 1X ONCE MM Last administered on 07/08/19at 16:38; Start 07/08/19 at 14:30; Stop 07/08/19 at 14:31; Status DC Lidocaine HCl (Glydo (Lidocaine) Jelly) 1 ramu 1X ONCE MM Last administered on 07/08/19at 16:38; Start 07/08/19 at 14:30; Stop 07/08/19 at 14:31; Status DC Linezolid/Dextrose 300 ml @ 300 mls/hr Q12HR IV Last administered on 07/10/19at 08:35; Start 07/08/19 at 20:00 Acetaminophen (Tylenol) 650 mg PRN Q6HRS PRN PO MILD PAIN / TEMP; Start 07/09/19 at 03:30; Stop 07/09/19 at 03:36; Status DC Acetaminophen (Tylenol) 650 mg PRN Q6HRS PRN PEG MILD PAIN / TEMP Last administered on 07/09/19at 16:36; Start 07/09/19 at 03:36 Sodium Chloride 1,000 ml @ 1,000 mls/hr Q1H PRN IV hypotension; Start 07/09/19 at 07:50; Stop 07/09/19 at 13:49; Status DC Albumin Human 200 ml @ 200 mls/hr 1X PRN PRN IV Hypotension; Start 07/09/19 at 08:00; Stop 07/09/19 at 13:59; Status DC Sodium Chloride (Normal Saline Flush) 10 ml 1X PRN PRN IV AP catheter pack; Start 07/09/19 at 08:00; Stop 07/10/19 at 07:59; Status DC Sodium Chloride (Normal Saline Flush) 10 ml 1X PRN PRN IV PATENT EXAMINER catheter pack; Start 07/09/19 at 08:00; Stop 07/10/19 at 07:59; Status DC Sodium Chloride 1,000 ml @ 400 mls/hr Q2H30M PRN IV PATENCY; Start 07/09/19 at 07:50; Stop 07/09/19 at 19:49; Status DC Info (PHARMACY MONITORING -- do not chart) 1 each PRN DAILY PRN MC SEE COMMENTS; Start 07/09/19 at 08:00; Status UNV Info (PHARMACY MONITORING -- do not chart) 1 each PRN DAILY PRN MC SEE COMMENTS; Start 07/09/19 at 08:00 Sodium Chloride 90 meq/Potassium Chloride 15 meq/ Potassium Phosphate 10 mmol/ Magnesium Sulfate 10 meq/Calcium Gluconate 20 meq/ Multivitamins 10 ml/Chromium/ Copper/Manganese/ Seleni/Zn 0.5 ml/ Total Parenteral Nutrition/Amino Acids/Dextrose/ Fat Emulsion Intravenous 1,512 ml @ 63 mls/hr TPN CONT IV Last administered on 07/09/19at 20:57; Start 07/09/19 at 22:00; Stop 07/10/19 at 21:59 Active Scripts Active Reported Bisoprolol Fumarate 5 Mg Tablet 10 Mg PO DAILY Vitals/I & O Vital Sign - Last 24 Hours 07/09/19 07/09/19 07/09/19 07/09/19 10:00 10:10 11:00 11:18 Pulse 124 137 Resp 17 17 28 B/P (MAP) 119/65 (83) 124/61 (82) Pulse Ox 98 98 97 98 O2 Delivery BiPAP/CPAP BiPAP/CPAP BiPAP/CPAP BiPAP/CPAP 07/09/19 07/09/19 07/09/19 07/09/19 12:00 12:00 12:00 12:49 Temp 99.0 99.0 Pulse 139 137 Resp 28 B/P (MAP) 132/53 (79) 124/61 (82) Pulse Ox 97 98 O2 Delivery Bi-pap BiPAP/CPAP BiPAP/CPAP 07/09/19 07/09/19 07/09/19 07/09/19 12:51 12:54 13:00 13:21 Pulse 140 117 Resp 16 17 19 B/P (MAP) 121/55 120/58 (78) Pulse Ox 99 99 95 O2 Delivery BiPAP/CPAP BiPAP/CPAP BiPAP/CPAP 07/09/19 07/09/19 07/09/19 07/09/19 14:00 15:00 15:28 16:00 Pulse 134 130 Resp 17 20 B/P (MAP) 144/56 (85) 119/51 (73) Pulse Ox 99 97 98 O2 Delivery BiPAP/CPAP BiPAP/CPAP BiPAP/CPAP Bi-pap 07/09/19 07/09/19 07/09/19 07/09/19 16:00 16:00 16:24 17:00 Temp 101.6 101.6 Pulse 139 139 134 Resp 22 21 B/P (MAP) 102/50 (67) 102/50 (67) 94/50 (65) Pulse Ox 99 94 99 O2 Delivery BiPAP/CPAP BiPAP/CPAP BiPAP/CPAP 07/09/19 07/09/19 07/09/19 07/09/19 17:41 17:43 18:00 18:11 Temp 99.6 99.6 Pulse 122 108 Resp 25 19 19 B/P (MAP) 100/53 90/52 (65) Pulse Ox 99 100 99 O2 Delivery BiPAP/CPAP BiPAP/CPAP BiPAP/CPAP 07/09/19 07/09/19 07/09/19 07/09/19 19:00 20:00 20:00 20:00 Temp 99.4 99.4 Pulse 108 108 Resp 18 20 B/P (MAP) 82/52 (62) 109/68 (82) Pulse Ox 97 100 O2 Delivery BiPAP/CPAP BiPAP/CPAP Bi-pap 07/09/19 07/09/19 07/09/19 07/09/19 20:15 20:58 21:00 21:31 Pulse 108 Resp 24 16 16 B/P (MAP) 88/61 (70) Pulse Ox 100 100 100 100 O2 Delivery BiPAP/CPAP BiPAP/CPAP BiPAP/CPAP BiPAP/CPAP 07/09/19 07/09/19 07/09/19 07/10/19 22:00 22:26 23:00 00:00 Temp 99.0 99.0 Pulse 109 115 105 Resp 15 25 21 B/P (MAP) 105/66 (79) 121/67 (85) 150/75 (100) Pulse Ox 99 99 99 99 O2 Delivery BiPAP/CPAP BiPAP/CPAP BiPAP/CPAP 07/10/19 07/10/19 07/10/19 07/10/19 00:00 00:00 00:04 00:04 Pulse 118 Resp 26 B/P (MAP) 150/75 Pulse Ox 99 O2 Delivery Bi-pap BiPAP/CPAP 07/10/19 07/10/19 07/10/19 07/10/19 00:41 01:00 01:00 02:00 Pulse 112 118 Resp 16 18 18 B/P (MAP) 101/59 (73) 115/65 (82) Pulse Ox 100 100 99 100 O2 Delivery BiPAP/CPAP BiPAP/CPAP BiPAP/CPAP BiPAP/CPAP 07/10/19 07/10/19 07/10/19 07/10/19 03:00 03:25 03:55 04:00 Pulse 122 Resp 20 B/P (MAP) 138/68 (91) Pulse Ox 99 94 97 O2 Delivery BiPAP/CPAP BiPAP/CPAP BiPAP/CPAP 07/10/19 07/10/19 07/10/19 07/10/19 04:00 04:00 04:01 05:00 Temp 99.5 99.5 Pulse 128 130 Resp 20 22 B/P (MAP) 124/66 (85) 147/80 (102) Pulse Ox 98 100 100 O2 Delivery BiPAP/CPAP Bi-pap BiPAP/CPAP BiPAP/CPAP 07/10/19 07/10/19 07/10/19 07/10/19 06:00 06:15 06:16 06:47 Pulse 126 128 Resp 20 B/P (MAP) 110/69 (83) 110/68 Pulse Ox 97 98 99 O2 Delivery BiPAP/CPAP BiPAP/CPAP BiPAP/CPAP 07/10/19 07/10/19 07/10/19 07/10/19 07:00 07:29 08:00 08:00 Temp 100.2 100.2 Pulse 118 114 Resp 19 20 B/P (MAP) 91/51 (64) 98/58 (71) Pulse Ox 99 98 98 O2 Delivery BiPAP/CPAP BiPAP/CPAP Bi-pap BiPAP/CPAP 07/10/19 09:00 Pulse 121 Resp 26 B/P (MAP) 97/54 (68) Pulse Ox 98 O2 Delivery BiPAP/CPAP Intake and Output 07/09/19 07/09/19 07/10/19 15:00 23:00 07:00 Intake Total 350 ml 2220 ml 2120.6 ml Output Total 20 ml 590 ml 55 ml Balance 330 ml 1630 ml 2065.6 ml Hemodynamically unstable?: Yes Is patient in severe pain?: Yes Is NPO status required?: Yes DAVIN LANDEROS MD Jul 10, 2019 09:48
[2019-07-10] MEDS: TPN PER PHARMACY MC PRN ×3 (11:04→14:19)
--- NOTE | 2019-07-10 11:09 | NUR ---
Pharmacy TPN Dosing Note S: SCOTT AVILA is a 48 year old F Currently receiving Central Continuous TPN started 07/06/19 B:Pertinent PMH: Necrotizing pancreatitis Height: 5 feet, 8 inches Weight: 95.0 kg Current diet: NPO LABS: Sodium: 138 Potassium: 3.5 Chloride: 102 Calcium: 6.6 Corrected Calcium: 8.60 Magnesium: 2.2 CO2: 28 SCr: 4.8 Glucose: 208 Albumin: 1.5 AST: 56 ALT: 45 TPN FORMULA: TPN TYPE: Central Continuous AMINO ACIDS: 60 gm DEXTROSE: 195 gm LIPIDS: 20 gm SODIUM CHLORIDE: 90 mEq SODIUM ACETATE: -- mEq SODIUM PHOSPHATE: -- mmol POTASSIUM CHLORIDE: 15 mEq POTASSIUM ACETATE: -- mEq POTASSIUM PHOSPHATE: 15 mmol MAGNESIUM: 10 mEq CALCIUM: 20 mEq INSULIN: -- units MULTIPLE VITAMIN: 10 ml TRACE ELEMENTS: 0.5 ml(s) TPN PLAN: increase kphos to 15 mmOL R: CONTINUE TPN AT 63ML/HR Will monitor electrolytes, glucose, and tolerance to TPN. KRISTIAN APODACA [facility], 07/10/19 1115
--- NOTE | 2019-07-10 12:12 | PDOC ---
G I PROGRESS NOTE Subjective Moaning. Physical Exam Lungs fairly clear anteriorly. RRR Abdomen remains "doughy". No bowel sounds heard. Review of Relevant I have reviewed the following items kolby (where applicable) has been applied. Labs Laboratory Tests Test 07/08/19 12:21 07/08/19 16:30 07/08/19 17:46 07/08/19 23:15 Glucose (Fingerstick) 135 mg/dL (70-99) 261 mg/dL (70-99) 290 mg/dL (70-99) O2 Saturation 93 % (92-99) Arterial Blood pH 7.38 (7.35-7.45) Arterial Blood pCO2 at Patient Temp 56 mmHg (35-46) Arterial Blood pO2 at Patient Temp 71 mmHg (75-108) Arterial Blood HCO3 33 mmol/L (21-28) Arterial Blood Base Excess 7 mmol/L (-3-3) FiO2 40 Test 07/09/19 06:07 07/09/19 06:10 07/09/19 07:33 07/09/19 12:13 Glucose (Fingerstick) 239 mg/dL (70-99) 137 mg/dL (70-99) White Blood Count 15.0 x10^3/uL (4.0-11.0) Red Blood Count 2.98 x10^6/uL (3.50-5.40) Hemoglobin 9.9 g/dL (12.0-15.5) Hematocrit 29.3 % (36.0-47.0) Mean Corpuscular Volume 98 fL (79-100) Mean Corpuscular Hemoglobin 33 pg (25-35) Mean Corpuscular Hemoglobin Concent 34 g/dL (31-37) Red Cell Distribution Width 13.4 % (11.5-14.5) Platelet Count 164 x10^3/uL (140-400) Sodium Level 138 mmol/L (136-145) Potassium Level 3.5 mmol/L (3.5-5.1) Chloride Level 102 mmol/L (98-107) Carbon Dioxide Level 28 mmol/L (21-32) Anion Gap 8 (6-14) Blood Urea Nitrogen 39 mg/dL (7-20) Creatinine 4.8 mg/dL (0.6-1.0) Estimated GFR (Cockcroft-Gault) 9.6 Glucose Level 263 mg/dL (70-99) Calcium Level 6.6 mg/dL (8.5-10.1) Phosphorus Level 3.4 mg/dL (2.6-4.7) Magnesium Level 2.2 mg/dL (1.8-2.4) O2 Saturation 97 % (92-99) Arterial Blood pH 7.28 (7.35-7.45) Arterial Blood pCO2 at Patient Temp 54 mmHg (35-46) Arterial Blood pO2 at Patient Temp 107 mmHg (75-108) Arterial Blood HCO3 25 mmol/L (21-28) Arterial Blood Base Excess -2 mmol/L (-3-3) FiO2 40 Test 07/10/19 00:07 07/10/19 06:30 07/10/19 06:33 07/10/19 11:50 Glucose (Fingerstick) 274 mg/dL (70-99) 208 mg/dL (70-99) 216 mg/dL (70-99) Sodium Level 138 mmol/L (136-145) Potassium Level 3.5 mmol/L (3.5-5.1) Chloride Level 100 mmol/L (98-107) Carbon Dioxide Level 31 mmol/L (21-32) Anion Gap 7 (6-14) Blood Urea Nitrogen 36 mg/dL (7-20) Creatinine 4.0 mg/dL (0.6-1.0) Estimated GFR (Cockcroft-Gault) 11.9 Glucose Level 229 mg/dL (70-99) Calcium Level 6.6 mg/dL (8.5-10.1) Phosphorus Level 2.8 mg/dL (2.6-4.7) Magnesium Level 2.1 mg/dL (1.8-2.4) Laboratory Tests Test 07/09/19 12:13 07/10/19 00:07 07/10/19 06:30 07/10/19 06:33 Glucose (Fingerstick) 137 mg/dL (70-99) 274 mg/dL (70-99) 208 mg/dL (70-99) Sodium Level 138 mmol/L (136-145) Potassium Level 3.5 mmol/L (3.5-5.1) Chloride Level 100 mmol/L (98-107) Carbon Dioxide Level 31 mmol/L (21-32) Anion Gap 7 (6-14) Blood Urea Nitrogen 36 mg/dL (7-20) Creatinine 4.0 mg/dL (0.6-1.0) Estimated GFR (Cockcroft-Gault) 11.9 Glucose Level 229 mg/dL (70-99) Calcium Level 6.6 mg/dL (8.5-10.1) Phosphorus Level 2.8 mg/dL (2.6-4.7) Magnesium Level 2.1 mg/dL (1.8-2.4) Test 07/10/19 11:50 Glucose (Fingerstick) 216 mg/dL (70-99) Microbiology 07/06/19 Blood Culture - Preliminary, Resulted NO GROWTH AFTER 4 DAYS Vitals/I & O Vital Sign - Last 24 Hours 07/09/19 07/09/19 07/09/19 07/09/19 12:49 12:51 12:54 13:00 Pulse 140 117 Resp 16 17 B/P (MAP) 121/55 120/58 (78) Pulse Ox 98 99 99 O2 Delivery BiPAP/CPAP BiPAP/CPAP BiPAP/CPAP 07/09/19 07/09/19 07/09/19 07/09/19 13:21 14:00 15:00 15:28 Pulse 134 130 Resp 19 17 20 B/P (MAP) 144/56 (85) 119/51 (73) Pulse Ox 95 99 97 98 O2 Delivery BiPAP/CPAP BiPAP/CPAP BiPAP/CPAP BiPAP/CPAP 07/09/19 07/09/19 07/09/19 07/09/19 16:00 16:00 16:00 16:24 Temp 101.6 101.6 Pulse 139 139 Resp 22 B/P (MAP) 102/50 (67) 102/50 (67) Pulse Ox 99 94 O2 Delivery Bi-pap BiPAP/CPAP BiPAP/CPAP 07/09/19 07/09/19 07/09/19 07/09/19 17:00 17:41 17:43 18:00 Temp 99.6 99.6 Pulse 134 122 108 Resp 21 25 19 B/P (MAP) 94/50 (65) 100/53 90/52 (65) Pulse Ox 99 99 100 O2 Delivery BiPAP/CPAP BiPAP/CPAP BiPAP/CPAP 07/09/19 07/09/19 07/09/19 07/09/19 18:11 19:00 20:00 20:00 Temp 99.4 99.4 Pulse 108 108 Resp 19 18 20 B/P (MAP) 82/52 (62) 109/68 (82) Pulse Ox 99 97 100 O2 Delivery BiPAP/CPAP BiPAP/CPAP BiPAP/CPAP Bi-pap 07/09/19 07/09/19 07/09/19 07/09/19 20:00 20:15 20:58 21:00 Pulse 108 Resp 24 16 B/P (MAP) 88/61 (70) Pulse Ox 100 100 100 O2 Delivery BiPAP/CPAP BiPAP/CPAP BiPAP/CPAP 07/09/19 07/09/19 07/09/19 07/09/19 21:31 22:00 22:26 23:00 Pulse 109 115 Resp 16 15 25 B/P (MAP) 105/66 (79) 121/67 (85) Pulse Ox 100 99 99 99 O2 Delivery BiPAP/CPAP BiPAP/CPAP BiPAP/CPAP 07/10/19 07/10/19 07/10/19 07/10/19 00:00 00:00 00:00 00:04 Temp 99.0 99.0 Pulse 105 118 Resp 21 B/P (MAP) 150/75 (100) 150/75 Pulse Ox 99 O2 Delivery BiPAP/CPAP Bi-pap 07/10/19 07/10/19 07/10/19 07/10/19 00:04 00:41 01:00 01:00 Pulse 112 Resp 26 16 18 B/P (MAP) 101/59 (73) Pulse Ox 99 100 100 99 O2 Delivery BiPAP/CPAP BiPAP/CPAP BiPAP/CPAP BiPAP/CPAP 07/10/19 07/10/19 07/10/19 07/10/19 02:00 03:00 03:25 03:55 Pulse 118 122 Resp 18 21 30 20 B/P (MAP) 115/65 (82) 138/68 (91) Pulse Ox 100 99 94 97 O2 Delivery BiPAP/CPAP BiPAP/CPAP BiPAP/CPAP BiPAP/CPAP 07/10/19 07/10/19 07/10/19 07/10/19 04:00 04:00 04:00 04:01 Temp 99.5 99.5 Pulse 128 Resp 20 B/P (MAP) 124/66 (85) Pulse Ox 98 100 O2 Delivery BiPAP/CPAP Bi-pap BiPAP/CPAP 07/10/19 07/10/19 07/10/19 07/10/19 05:00 06:00 06:15 06:16 Pulse 130 126 128 Resp 20 B/P (MAP) 147/80 (102) 110/69 (83) 110/68 Pulse Ox 100 97 98 O2 Delivery BiPAP/CPAP BiPAP/CPAP BiPAP/CPAP 07/10/19 07/10/19 07/10/19 07/10/19 06:47 07:00 07:29 08:00 Pulse 118 Resp 20 19 B/P (MAP) 91/51 (64) Pulse Ox 99 99 98 O2 Delivery BiPAP/CPAP BiPAP/CPAP BiPAP/CPAP Bi-pap 07/10/19 07/10/19 07/10/19 07/10/19 08:00 09:00 09:47 09:55 Temp 100.2 100.2 Pulse 114 121 Resp 20 28 B/P (MAP) 98/58 (71) 97/54 (68) Pulse Ox 98 98 98 98 O2 Delivery BiPAP/CPAP BiPAP/CPAP BiPAP/CPAP BiPAP/CPAP 07/10/19 07/10/19 07/10/19 07/10/19 10:00 11:00 11:10 11:56 Pulse 120 127 124 Resp 21 27 B/P (MAP) 102/61 (75) 90/50 (63) 120/63 Pulse Ox 99 97 98 O2 Delivery BiPAP/CPAP BiPAP/CPAP BiPAP/CPAP Intake and Output 07/09/19 07/09/19 07/10/19 15:00 23:00 07:00 Intake Total 350 ml 2220 ml 2120.6 ml Output Total 20 ml 590 ml 55 ml Balance 330 ml 1630 ml 2065.6 ml Problem List Problems Medical Problems: (1) Acute pancreatitis Status: Acute (2) Cholelithiasis Status: Acute Assessment Biliary pancreatitis, severe, with MOSF. Remains anuric and acidotic. Plan of Care Note Continue support. Interval CT next week. Hemodynamically unstable?: Yes Is patient in severe pain?: Yes Is NPO status required?: Yes MARY RIVAS MD Jul 10, 2019 12:12
--- NOTE | 2019-07-10 12:57 | PDOC ---
Renal-Progress Notes Subjective Notes Notes NO NEW COMPLAINTS History of Present Illness Hx of present illness STILL ON BIPAP Vitals Vitals Vital Signs Date Time Temp Pulse Resp B/P (MAP) Pulse Ox O2 Delivery O2 Flow Rate FiO2 07/10/19 12:31 26 96 BiPAP/CPAP 07/10/19 12:00 99.0 108 114/65 (81) 99.0 Weight Weight [ ] I.O. Intake and Output Intake and Output 07/10/19 07:00 Intake Total 4690.6 ml Output Total 665 ml Balance 4025.6 ml Intake Oral 0 ml IV Total 4690.6 ml Output Urine Total 90 ml Stool Total 300 ml Gastric Drainage Total 275 ml Labs Labs Laboratory Tests Test 07/10/19 00:07 07/10/19 06:30 07/10/19 06:33 07/10/19 11:50 Glucose (Fingerstick) 274 mg/dL (70-99) 208 mg/dL (70-99) 216 mg/dL (70-99) Sodium Level 138 mmol/L (136-145) Potassium Level 3.5 mmol/L (3.5-5.1) Chloride Level 100 mmol/L (98-107) Carbon Dioxide Level 31 mmol/L (21-32) Anion Gap 7 (6-14) Blood Urea Nitrogen 36 mg/dL (7-20) Creatinine 4.0 mg/dL (0.6-1.0) Estimated GFR (Cockcroft-Gault) 11.9 Glucose Level 229 mg/dL (70-99) Calcium Level 6.6 mg/dL (8.5-10.1) Phosphorus Level 2.8 mg/dL (2.6-4.7) Magnesium Level 2.1 mg/dL (1.8-2.4) Micro Micro Microbiology 07/06/19 Blood Culture - Preliminary, Resulted NO GROWTH AFTER 4 DAYS Review of Systems Constitutional: yes: other (DIFFICULT TO OBTAIN) Physical Exam General Appearance: moderate distress Skin: warm Respiratory: decreased breath sounds Heart: S1S2 Abdomen: soft, bowel sounds present Genitourinary: bladder flat Extremities: pulses present Neurology: alert Assessment Assessment IMP [id number] HYPERKALEMIA-BETTER ACIDOSIS AND ACIDEMIA ACUTE REPS FAILURE ACUTE PANCREATITIS HYPOALBUMINEMIA HYPOCALCEMIA-BETTER PLAN TPN HD TOMORROW CONT HCO3 GTT ON BIPAP MAY NEED VENT SUPPORT WILL FOLLOW DONI GARCIA MD Jul 10, 2019 12:57
--- NOTE | 2019-07-10 13:28 | PDOC ---
SURGICAL PROGRESS NOTE Subjective sleepy, just had some pain meds will stir BIPAP on Vital Signs Vital Signs Date Time Temp Pulse Resp B/P (MAP) Pulse Ox O2 Delivery O2 Flow Rate FiO2 07/10/19 12:31 26 96 BiPAP/CPAP 07/10/19 12:00 99.0 108 114/65 (81) 99.0 tachy I&O Intake and Output 07/10/19 07:00 Intake Total 4690.6 ml Output Total 665 ml Balance 4025.6 ml Intake Oral 0 ml IV Total 4690.6 ml Output Urine Total 90 ml Stool Total 300 ml Gastric Drainage Total 275 ml PATIENT HAS A ROSARIO: Yes HEENT: Other (facemask on) Abdomen: Other (moderately distended) Labs Laboratory Tests Test 07/08/19 16:30 07/08/19 17:46 07/08/19 23:15 07/09/19 06:07 O2 Saturation 93 % (92-99) Arterial Blood pH 7.38 (7.35-7.45) Arterial Blood pCO2 at Patient Temp 56 mmHg (35-46) Arterial Blood pO2 at Patient Temp 71 mmHg (75-108) Arterial Blood HCO3 33 mmol/L (21-28) Arterial Blood Base Excess 7 mmol/L (-3-3) FiO2 40 Glucose (Fingerstick) 261 mg/dL (70-99) 290 mg/dL (70-99) 239 mg/dL (70-99) Test 07/09/19 06:10 07/09/19 07:33 07/09/19 12:13 07/10/19 00:07 White Blood Count 15.0 x10^3/uL (4.0-11.0) Red Blood Count 2.98 x10^6/uL (3.50-5.40) Hemoglobin 9.9 g/dL (12.0-15.5) Hematocrit 29.3 % (36.0-47.0) Mean Corpuscular Volume 98 fL (79-100) Mean Corpuscular Hemoglobin 33 pg (25-35) Mean Corpuscular Hemoglobin Concent 34 g/dL (31-37) Red Cell Distribution Width 13.4 % (11.5-14.5) Platelet Count 164 x10^3/uL (140-400) Sodium Level 138 mmol/L (136-145) Potassium Level 3.5 mmol/L (3.5-5.1) Chloride Level 102 mmol/L (98-107) Carbon Dioxide Level 28 mmol/L (21-32) Anion Gap 8 (6-14) Blood Urea Nitrogen 39 mg/dL (7-20) Creatinine 4.8 mg/dL (0.6-1.0) Estimated GFR (Cockcroft-Gault) 9.6 Glucose Level 263 mg/dL (70-99) Calcium Level 6.6 mg/dL (8.5-10.1) Phosphorus Level 3.4 mg/dL (2.6-4.7) Magnesium Level 2.2 mg/dL (1.8-2.4) O2 Saturation 97 % (92-99) Arterial Blood pH 7.28 (7.35-7.45) Arterial Blood pCO2 at Patient Temp 54 mmHg (35-46) Arterial Blood pO2 at Patient Temp 107 mmHg (75-108) Arterial Blood HCO3 25 mmol/L (21-28) Arterial Blood Base Excess -2 mmol/L (-3-3) FiO2 40 Glucose (Fingerstick) 137 mg/dL (70-99) 274 mg/dL (70-99) Test 07/10/19 06:30 07/10/19 06:33 07/10/19 11:50 Sodium Level 138 mmol/L (136-145) Potassium Level 3.5 mmol/L (3.5-5.1) Chloride Level 100 mmol/L (98-107) Carbon Dioxide Level 31 mmol/L (21-32) Anion Gap 7 (6-14) Blood Urea Nitrogen 36 mg/dL (7-20) Creatinine 4.0 mg/dL (0.6-1.0) Estimated GFR (Cockcroft-Gault) 11.9 Glucose Level 229 mg/dL (70-99) Calcium Level 6.6 mg/dL (8.5-10.1) Phosphorus Level 2.8 mg/dL (2.6-4.7) Magnesium Level 2.1 mg/dL (1.8-2.4) Glucose (Fingerstick) 208 mg/dL (70-99) 216 mg/dL (70-99) Laboratory Tests Test 07/10/19 00:07 07/10/19 06:30 07/10/19 06:33 3/22/20 11:50 Glucose (Fingerstick) 274 mg/dL (70-99) 208 mg/dL (70-99) 216 mg/dL (70-99) Sodium Level 138 mmol/L (136-145) Potassium Level 3.5 mmol/L (3.5-5.1) Chloride Level 100 mmol/L (98-107) Carbon Dioxide Level 31 mmol/L (21-32) Anion Gap 7 (6-14) Blood Urea Nitrogen 36 mg/dL (7-20) Creatinine 4.0 mg/dL (0.6-1.0) Estimated GFR (Cockcroft-Gault) 11.9 Glucose Level 229 mg/dL (70-99) Calcium Level 6.6 mg/dL (8.5-10.1) Phosphorus Level 2.8 mg/dL (2.6-4.7) Magnesium Level 2.1 mg/dL (1.8-2.4) Problem List Problems Medical Problems: (1) Acute pancreatitis Status: Acute (2) Cholelithiasis Status: Acute Assessment/Plan severe gallstone pancreatitis respiratory failure acidosis continue supportive care no new surgical recs MARV WYNNE MD Jul 10, 2019 13:28
[2019-07-10] MEDS ORDERED: DEXTROSE 70% IV SCH ×30 (22:00)
[2019-07-10] MEDS ORDERED: TOTAL PARENTERAL NUTRITION IV SCH ×30 (22:00)
[2019-07-10] MEDS ORDERED: AMINO ACID IV SCH ×30 (22:00)
[2019-07-10] MEDS ORDERED: [UNRECOGNIZED DRUG - OTHER] IV SCH ×10 (22:00)
[2019-07-10] MEDS ORDERED: [UNRECOGNIZED DRUG - OTHER] IV SCH ×10 (22:00)
[2019-07-10] MEDS ORDERED: [UNRECOGNIZED DRUG - OTHER] IV SCH ×10 (22:00)
[2019-07-11] VITALS (30 sets, daily range): BP systolic 59–158; BP diastolic 41–80
[2019-07-11] MEDS: METOPROLOL TARTRATE 5 MG/5 ML VIAL. IVP SCH ×5 (00:34→23:47)
[2019-07-11] MEDS: INSULIN LISPRO 300 UNITS/3 ML VIAL. SQ SCH ×4 (00:40→18:32)
[2019-07-11] MEDS: HYDROmorphone 2 MG/ML VIAL IV PRN ×2 (01:41→05:13)
[2019-07-11 06:06] LABS: BASE EXCESS ABG 1 mmol/L (-3-3); HCO3 ABG 30 mmol/L (21-28); PO2 ABG 324 mmHg (75-108); SAT O2 ABG 99 % (92-99)
[2019-07-11 06:34] LABS: FIO2 ABG 100; PCO2 ABG 78 mmHg (35-46)
[2019-07-11 06:42] LABS: ALBUMIN 1.4 g/dL (3.4-5.0); ALBUMIN/GLOBULIN RATIO 0.4 (1.0-1.7); CALCIUM 7.3 mg/dL (8.5-10.1); CREATININE 5.1 mg/dL (0.6-1.0); POTASSIUM 4.1 mmol/L (3.5-5.1); TOTAL BILIRUBIN 0.3 mg/dL (0.2-1.0); TOTAL PROTEIN 4.8 g/dL (6.4-8.2)
[2019-07-11] MEDS: NOREPINEPHRINE VIAL 8 MG in IV DEXTROSE 5% 250 ML IV PRN (06:51)
[2019-07-11 06:59] LABS: BASO % 0 % (0-3); EOS # 0.2 x10^3/uL (0.0-0.7); EOS % 1 % (0-3); HEMATOCRIT 28.6 % (36.0-47.0); HEMOGLOBIN 9.5 g/dL (12.0-15.5); LYMPH # 0.6 x10^3/uL (1.0-4.8); LYMPH % 3 % (24-48); MEAN CORPUSCULAR HEMOGLOBIN 33 pg (25-35); MEAN CORPUSCULAR HGB CONC 33 g/dL (31-37); MEAN CORPUSCULAR VOLUME 100 fL (79-100); MONO # 1.1 x10^3/uL (0.0-1.1); MONO % 5 % (0-9); NEUT # 20.7 x10^3/uL (1.8-7.7); NEUT % 91 % (31-73); PLATELET COUNT 291 x10^3/uL (140-400); RED BLOOD COUNT 2.86 x10^6/uL (3.50-5.40); WHITE BLOOD COUNT 22.6 x10^3/uL (4.0-11.0)
--- NOTE | 2019-07-11 07:20 | NUR ---
At around 0500 this am, this RN attempted to perform oral care on the patient. This RN removed pts bipap for less than 30 seconds and SPO2 dropped to 35%. Pt did recover fairly quickly once placed back on BiPap. Pt agonal breathing when off the BiPap. ABG drawn with critical results. Results called to Dr. Watson, on-call MD. Updated MD on pt status. Received orders to change BiPap settings to 22/6, back-up rate of 22 and titrate FiO2 to keep oxygen saturation at 90%. Repeat ABG this am. BiPap adjusted to new settings. Current FiO2 96%. PRN Levophed started this am at 0650 due to SBP less than 90. Will continue to monitor and pass on to next shift. Addendum: 07/11/19 at 0732 by CHARLIE SIMPSON RN RN Current SPO2 96%. FiO2 45%.
[2019-07-11] MEDS ORDERED: IV NORMAL SALINE 1000ML BAG 1,000 ML IV PRN ×2 (07:28)
[2019-07-11] MEDS ORDERED: diphenhydrAMINE 50 MG/ML VIAL IV PRN ×2 (07:30)
[2019-07-11] MEDS ORDERED: DIALYSIS PATIENT. MC PRN (07:30)
[2019-07-11] MEDS ORDERED: ALBUMIN HUMAN 25% 200 ML IV ONE (07:30)
--- NOTE | 2019-07-11 07:30 | NUR ---
Pt in bed on BiPap, lungs are very diminished at this time. Skin is cool and mottled. Pt is unresponsive to deep nail bed pressure, pupils are sluggish and 2mm. Repeat ABG being done at this time.
--- NOTE | 2019-07-11 07:50 | NUR ---
Dr. Gordillo notified of current ABG results, ordered to intubate pt.
[2019-07-11] MEDS ORDERED: PROPOFOL 0 ML IV ONE (07:53)
[2019-07-11] MEDS ORDERED: ETOMIDATE 20 MG/10 ML VIAL. IV ONE ×2 (07:53→08:30)
[2019-07-11] MEDS ORDERED: MIDAZOLAM HCL/PF 5 MG/5 ML VIAL. ONE (07:57)
--- NOTE | 2019-07-11 07:58 | PDOC ---
Infectious Disease Note Subjective Subjective Fever Tmax 100.2 Remains on BiPAP FiO2 40% On Levophed gtt this am TPN ROS ROS Not responsive Vital Sign Vital Signs Vital Signs Date Time Temp Pulse Resp B/P (MAP) Pulse Ox O2 Delivery O2 Flow Rate FiO2 07/11/19 07:17 100 BiPAP/CPAP 07/11/19 06:50 116 83/46 (58) 07/11/19 06:00 31 07/11/19 04:00 97.7 97.7 07/10/19 18:12 6.0 Physical Exam PHYSICAL EXAM GENERAL: Lethargic, on BiPAP, + mitts, calm HEENT: Mild icterus. Oral mucosa very dry. NECK: Supple. LUNGS: Decreased breath sounds at the bases. Soft wheezes HEART: S1, S2, tachycardia, 110s, regular ABDOMEN: Distended, moans to palpation, reproducible, + BS. Rectal tube in place : Lind EXTREMITIES: Trace edema, no cyanosis - mottled. DERMATOLOGIC: Warm and dry. No generalized rash. CENTRAL NERVOUS SYSTEM: Extremely lethargic RUE-PICC, RIJ/Temp HDC & LIJ without signs of complications Labs Lab Laboratory Tests Test 07/10/19 11:50 07/10/19 18:18 07/11/19 00:38 07/11/19 05:32 Glucose (Fingerstick) 216 mg/dL (70-99) 223 mg/dL (70-99) 260 mg/dL (70-99) O2 Saturation 99 % (92-99) Arterial Blood pH 7.20 (7.35-7.45) Arterial Blood pCO2 at Patient Temp 78 mmHg (35-46) Arterial Blood pO2 at Patient Temp 324 mmHg (75-108) Arterial Blood HCO3 30 mmol/L (21-28) Arterial Blood Base Excess 1 mmol/L (-3-3) FiO2 100 Test 07/11/19 05:50 07/11/19 05:56 White Blood Count 22.6 x10^3/uL (4.0-11.0) Red Blood Count 2.86 x10^6/uL (3.50-5.40) Hemoglobin 9.5 g/dL (12.0-15.5) Hematocrit 28.6 % (36.0-47.0) Mean Corpuscular Volume 100 fL (79-100) Mean Corpuscular Hemoglobin 33 pg (25-35) Mean Corpuscular Hemoglobin Concent 33 g/dL (31-37) Red Cell Distribution Width 14.0 % (11.5-14.5) Platelet Count 291 x10^3/uL (140-400) Neutrophils (%) (Auto) 91 % (31-73) Lymphocytes (%) (Auto) 3 % (24-48) Monocytes (%) (Auto) 5 % (0-9) Eosinophils (%) (Auto) 1 % (0-3) Basophils (%) (Auto) 0 % (0-3) Neutrophils # (Auto) 20.7 x10^3/uL (1.8-7.7) Lymphocytes # (Auto) 0.6 x10^3/uL (1.0-4.8) Monocytes # (Auto) 1.1 x10^3/uL (0.0-1.1) Eosinophils # (Auto) 0.2 x10^3/uL (0.0-0.7) Basophils # (Auto) 0.0 x10^3/uL (0.0-0.2) Sodium Level 138 mmol/L (136-145) Potassium Level 4.1 mmol/L (3.5-5.1) Chloride Level 99 mmol/L (98-107) Carbon Dioxide Level 31 mmol/L (21-32) Anion Gap 8 (6-14) Blood Urea Nitrogen 57 mg/dL (7-20) Creatinine 5.1 mg/dL (0.6-1.0) Estimated GFR (Cockcroft-Gault) 9.0 BUN/Creatinine Ratio 11 (6-20) Glucose Level 212 mg/dL (70-99) Calcium Level 7.3 mg/dL (8.5-10.1) Total Bilirubin 0.3 mg/dL (0.2-1.0) Aspartate Amino Transf (AST/SGOT) 37 U/L (15-37) Alanine Aminotransferase (ALT/SGPT) 21 U/L (14-59) Alkaline Phosphatase 163 U/L (46-116) Total Protein 4.8 g/dL (6.4-8.2) Albumin 1.4 g/dL (3.4-5.0) Albumin/Globulin Ratio 0.4 (1.0-1.7) Lipase 162 U/L (73-393) Glucose (Fingerstick) 155 mg/dL (70-99) Micro Microbiology 07/06/19 Blood Culture - Final, Complete NO GROWTH AFTER 5 DAYS Objective Assessment Fever Acidosis Hypotension - levophed started this am Leukocytosis Acute pancreatitis, early developing necrosis Cholelithiasis Leucocytosis - up JUANA,Hyperkalemia, Metabolic acidosis on HD Acute hypoxic resp failure, bilateral pleural effusion on BiPAP Hypocalcemia Prediabetes HTN Plan Plan of Care Intubation pending STAT CXR and KUB CT ordered for this am Add Flagyl and Micafungin HD pending - in route cont merrem, renal dosing and Zyvox (07/07) f/u labs and cults No surgical plans at this time Electrolytes per primary Critically ill D/w nursing D/w WILLY Cardozo MD Jul 11, 2019 07:58
--- NOTE | 2019-07-11 08:10 | NUR ---
Pt intubated with 7.0 ET tube 20cm @ the lip by 3D TECHNOLOGIST. Good color change noted and equal breath sounds heard.
[2019-07-11] MEDS ORDERED: POLYVINYL ALCOHOL 1.4% OPHTH SOLUTION 15ML BOTTLE. OU PRN (08:15)
--- NOTE | 2019-07-11 08:24 | PDOC ---
PULMONARY PROGRESS NOTES Subjective PT DID POORLY THIS AM INTUBATED Vitals Vital Signs Date Time Temp Pulse Resp B/P (MAP) Pulse Ox O2 Delivery O2 Flow Rate FiO2 07/11/19 07:41 Bi-pap 07/11/19 07:17 100 07/11/19 06:50 116 83/46 (58) 07/11/19 06:00 31 07/11/19 04:00 97.7 97.7 07/10/19 18:12 6.0 HEENT: Other (nc at perrl bipap mask on neck no lad no thyromegaly) Lungs: Crackles, Other (dull at bases) Cardiovascular: S1, S2 Abdomen: Other (distended, diffuse pain no mass) Extremities: No Edema Skin: Warm Labs Laboratory Tests Test 07/09/19 12:13 07/10/19 00:07 07/10/19 06:30 07/10/19 06:33 Glucose (Fingerstick) 137 mg/dL (70-99) 274 mg/dL (70-99) 208 mg/dL (70-99) Sodium Level 138 mmol/L (136-145) Potassium Level 3.5 mmol/L (3.5-5.1) Chloride Level 100 mmol/L (98-107) Carbon Dioxide Level 31 mmol/L (21-32) Anion Gap 7 (6-14) Blood Urea Nitrogen 36 mg/dL (7-20) Creatinine 4.0 mg/dL (0.6-1.0) Estimated GFR (Cockcroft-Gault) 11.9 Glucose Level 229 mg/dL (70-99) Calcium Level 6.6 mg/dL (8.5-10.1) Phosphorus Level 2.8 mg/dL (2.6-4.7) Magnesium Level 2.1 mg/dL (1.8-2.4) Test 07/10/19 11:50 07/10/19 18:18 07/11/19 00:38 07/11/19 05:32 Glucose (Fingerstick) 216 mg/dL (70-99) 223 mg/dL (70-99) 260 mg/dL (70-99) O2 Saturation 99 % (92-99) Arterial Blood pH 7.20 (7.35-7.45) Arterial Blood pCO2 at Patient Temp 78 mmHg (35-46) Arterial Blood pO2 at Patient Temp 324 mmHg (75-108) Arterial Blood HCO3 30 mmol/L (21-28) Arterial Blood Base Excess 1 mmol/L (-3-3) FiO2 100 Test 07/11/19 05:50 07/11/19 05:56 White Blood Count 22.6 x10^3/uL (4.0-11.0) Red Blood Count 2.86 x10^6/uL (3.50-5.40) Hemoglobin 9.5 g/dL (12.0-15.5) Hematocrit 28.6 % (36.0-47.0) Mean Corpuscular Volume 100 fL (79-100) Mean Corpuscular Hemoglobin 33 pg (25-35) Mean Corpuscular Hemoglobin Concent 33 g/dL (31-37) Red Cell Distribution Width 14.0 % (11.5-14.5) Platelet Count 291 x10^3/uL (140-400) Neutrophils (%) (Auto) 91 % (31-73) Lymphocytes (%) (Auto) 3 % (24-48) Monocytes (%) (Auto) 5 % (0-9) Eosinophils (%) (Auto) 1 % (0-3) Basophils (%) (Auto) 0 % (0-3) Neutrophils # (Auto) 20.7 x10^3/uL (1.8-7.7) Lymphocytes # (Auto) 0.6 x10^3/uL (1.0-4.8) Monocytes # (Auto) 1.1 x10^3/uL (0.0-1.1) Eosinophils # (Auto) 0.2 x10^3/uL (0.0-0.7) Basophils # (Auto) 0.0 x10^3/uL (0.0-0.2) Sodium Level 138 mmol/L (136-145) Potassium Level 4.1 mmol/L (3.5-5.1) Chloride Level 99 mmol/L (98-107) Carbon Dioxide Level 31 mmol/L (21-32) Anion Gap 8 (6-14) Blood Urea Nitrogen 57 mg/dL (7-20) Creatinine 5.1 mg/dL (0.6-1.0) Estimated GFR (Cockcroft-Gault) 9.0 BUN/Creatinine Ratio 11 (6-20) Glucose Level 212 mg/dL (70-99) Calcium Level 7.3 mg/dL (8.5-10.1) Total Bilirubin 0.3 mg/dL (0.2-1.0) Aspartate Amino Transf (AST/SGOT) 37 U/L (15-37) Alanine Aminotransferase (ALT/SGPT) 21 U/L (14-59) Alkaline Phosphatase 163 U/L (46-116) Total Protein 4.8 g/dL (6.4-8.2) Albumin 1.4 g/dL (3.4-5.0) Albumin/Globulin Ratio 0.4 (1.0-1.7) Lipase 162 U/L (73-393) Glucose (Fingerstick) 155 mg/dL (70-99) Laboratory Tests Test 07/10/19 11:50 07/10/19 18:18 07/11/19 00:38 07/11/19 05:32 Glucose (Fingerstick) 216 mg/dL (70-99) 223 mg/dL (70-99) 260 mg/dL (70-99) O2 Saturation 99 % (92-99) Arterial Blood pH 7.20 (7.35-7.45) Arterial Blood pCO2 at Patient Temp 78 mmHg (35-46) Arterial Blood pO2 at Patient Temp 324 mmHg (75-108) Arterial Blood HCO3 30 mmol/L (21-28) Arterial Blood Base Excess 1 mmol/L (-3-3) FiO2 100 Test 07/11/19 05:50 07/11/19 05:56 White Blood Count 22.6 x10^3/uL (4.0-11.0) Red Blood Count 2.86 x10^6/uL (3.50-5.40) Hemoglobin 9.5 g/dL (12.0-15.5) Hematocrit 28.6 % (36.0-47.0) Mean Corpuscular Volume 100 fL (79-100) Mean Corpuscular Hemoglobin 33 pg (25-35) Mean Corpuscular Hemoglobin Concent 33 g/dL (31-37) Red Cell Distribution Width 14.0 % (11.5-14.5) Platelet Count 291 x10^3/uL (140-400) Neutrophils (%) (Auto) 91 % (31-73) Lymphocytes (%) (Auto) 3 % (24-48) Monocytes (%) (Auto) 5 % (0-9) Eosinophils (%) (Auto) 1 % (0-3) Basophils (%) (Auto) 0 % (0-3) Neutrophils # (Auto) 20.7 x10^3/uL (1.8-7.7) Lymphocytes # (Auto) 0.6 x10^3/uL (1.0-4.8) Monocytes # (Auto) 1.1 x10^3/uL (0.0-1.1) Eosinophils # (Auto) 0.2 x10^3/uL (0.0-0.7) Basophils # (Auto) 0.0 x10^3/uL (0.0-0.2) Sodium Level 138 mmol/L (136-145) Potassium Level 4.1 mmol/L (3.5-5.1) Chloride Level 99 mmol/L (98-107) Carbon Dioxide Level 31 mmol/L (21-32) Anion Gap 8 (6-14) Blood Urea Nitrogen 57 mg/dL (7-20) Creatinine 5.1 mg/dL (0.6-1.0) Estimated GFR (Cockcroft-Gault) 9.0 BUN/Creatinine Ratio 11 (6-20) Glucose Level 212 mg/dL (70-99) Calcium Level 7.3 mg/dL (8.5-10.1) Total Bilirubin 0.3 mg/dL (0.2-1.0) Aspartate Amino Transf (AST/SGOT) 37 U/L (15-37) Alanine Aminotransferase (ALT/SGPT) 21 U/L (14-59) Alkaline Phosphatase 163 U/L (46-116) Total Protein 4.8 g/dL (6.4-8.2) Albumin 1.4 g/dL (3.4-5.0) Albumin/Globulin Ratio 0.4 (1.0-1.7) Lipase 162 U/L (73-393) Glucose (Fingerstick) 155 mg/dL (70-99) Medications Active Scripts Medications Dose Route/Sig Max Daily Dose Days Date Category Bisoprolol Fumarate 5 Mg Tablet 10 Mg PO DAILY 07/04/19 Reported Comments 1. Lines and tubes as described. 2. Bibasilar lung airspace opacities likely atelectasis or infiltrate with small left pleural effusion. Probable mild congestive changes. 3. Nonspecific bowel gas pattern. Impression . IMPRESSION: 1. Acute hypoxemic respiratory failure secondary to acute pancreatitis, sepsis, abdominal distention, and pneumonia. 2. Gallstone pancreatitis. WITH NECROSIS 3. Severe metabolic acidosis. 4. Acute kidney injury. ON HD 5. Acute gallstone pancreatitis. 6. Hypoalbuminemia. 7. Hypocalcemia. Plan . AC MODE REPEAT ABG ANTI BX PER IS FOLLOW SURGERY HD PER NEPHRO TPN D/W HARMEET HEMPHILL MD Jul 11, 2019 08:23
[2019-07-11] MEDS ORDERED: SUCCINYLCHOLINE 200 MG/10 ML VIAL. IV ONE (08:30)
[2019-07-11] MEDS ORDERED: MIDAZOLAM HCL/PF 5 MG/5 ML VIAL. IV ONE (08:30)
--- NOTE | 2019-07-11 08:30 | NUR ---
Spoke with Jamaal about pts condition and intubation. Informed of plan of care for today. Left message for mother to call when she gets the message. Attempted to leave a message for daughter Norma but her phone message stated she is not taking calls or accepting messages at this time.
--- NOTE | 2019-07-11 08:41 | PDOC ---
SURGICAL PROGRESS NOTE Subjective intubated on pressors Vital Signs Vital Signs Date Time Temp Pulse Resp B/P (MAP) Pulse Ox O2 Delivery O2 Flow Rate FiO2 07/11/19 07:41 Bi-pap 07/11/19 07:17 100 07/11/19 06:50 116 83/46 (58) 07/11/19 06:00 31 07/11/19 04:00 97.7 97.7 07/10/19 18:12 6.0 I&O Intake and Output 07/11/19 07:00 Intake Total 3426.3 ml Output Total 710 ml Balance 2716.3 ml IV Total 3426.3 ml Output Urine Total 285 ml Gastric Drainage Total 325 ml Oral Regurgitation 100 ml PATIENT HAS A ROSARIO: Yes Abdomen: Other (mildly distended, "doughy") Labs Laboratory Tests Test 07/09/19 12:13 07/10/19 00:07 07/10/19 06:30 07/10/19 06:33 Glucose (Fingerstick) 137 mg/dL (70-99) 274 mg/dL (70-99) 208 mg/dL (70-99) Sodium Level 138 mmol/L (136-145) Potassium Level 3.5 mmol/L (3.5-5.1) Chloride Level 100 mmol/L (98-107) Carbon Dioxide Level 31 mmol/L (21-32) Anion Gap 7 (6-14) Blood Urea Nitrogen 36 mg/dL (7-20) Creatinine 4.0 mg/dL (0.6-1.0) Estimated GFR (Cockcroft-Gault) 11.9 Glucose Level 229 mg/dL (70-99) Calcium Level 6.6 mg/dL (8.5-10.1) Phosphorus Level 2.8 mg/dL (2.6-4.7) Magnesium Level 2.1 mg/dL (1.8-2.4) Test 07/10/19 11:50 07/10/19 18:18 07/11/19 00:38 07/11/19 05:32 Glucose (Fingerstick) 216 mg/dL (70-99) 223 mg/dL (70-99) 260 mg/dL (70-99) O2 Saturation 99 % (92-99) Arterial Blood pH 7.20 (7.35-7.45) Arterial Blood pCO2 at Patient Temp 78 mmHg (35-46) Arterial Blood pO2 at Patient Temp 324 mmHg (75-108) Arterial Blood HCO3 30 mmol/L (21-28) Arterial Blood Base Excess 1 mmol/L (-3-3) FiO2 100 Test 07/11/19 05:50 07/11/19 05:56 White Blood Count 22.6 x10^3/uL (4.0-11.0) Red Blood Count 2.86 x10^6/uL (3.50-5.40) Hemoglobin 9.5 g/dL (12.0-15.5) Hematocrit 28.6 % (36.0-47.0) Mean Corpuscular Volume 100 fL (79-100) Mean Corpuscular Hemoglobin 33 pg (25-35) Mean Corpuscular Hemoglobin Concent 33 g/dL (31-37) Red Cell Distribution Width 14.0 % (11.5-14.5) Platelet Count 291 x10^3/uL (140-400) Neutrophils (%) (Auto) 91 % (31-73) Lymphocytes (%) (Auto) 3 % (24-48) Monocytes (%) (Auto) 5 % (0-9) Eosinophils (%) (Auto) 1 % (0-3) Basophils (%) (Auto) 0 % (0-3) Neutrophils # (Auto) 20.7 x10^3/uL (1.8-7.7) Lymphocytes # (Auto) 0.6 x10^3/uL (1.0-4.8) Monocytes # (Auto) 1.1 x10^3/uL (0.0-1.1) Eosinophils # (Auto) 0.2 x10^3/uL (0.0-0.7) Basophils # (Auto) 0.0 x10^3/uL (0.0-0.2) Sodium Level 138 mmol/L (136-145) Potassium Level 4.1 mmol/L (3.5-5.1) Chloride Level 99 mmol/L (98-107) Carbon Dioxide Level 31 mmol/L (21-32) Anion Gap 8 (6-14) Blood Urea Nitrogen 57 mg/dL (7-20) Creatinine 5.1 mg/dL (0.6-1.0) Estimated GFR (Cockcroft-Gault) 9.0 BUN/Creatinine Ratio 11 (6-20) Glucose Level 212 mg/dL (70-99) Calcium Level 7.3 mg/dL (8.5-10.1) Total Bilirubin 0.3 mg/dL (0.2-1.0) Aspartate Amino Transf (AST/SGOT) 37 U/L (15-37) Alanine Aminotransferase (ALT/SGPT) 21 U/L (14-59) Alkaline Phosphatase 163 U/L (46-116) Total Protein 4.8 g/dL (6.4-8.2) Albumin 1.4 g/dL (3.4-5.0) Albumin/Globulin Ratio 0.4 (1.0-1.7) Lipase 162 U/L (73-393) Glucose (Fingerstick) 155 mg/dL (70-99) Laboratory Tests Test 07/10/19 11:50 07/10/19 18:18 07/11/19 00:38 07/11/19 05:32 Glucose (Fingerstick) 216 mg/dL (70-99) 223 mg/dL (70-99) 260 mg/dL (70-99) O2 Saturation 99 % (92-99) Arterial Blood pH 7.20 (7.35-7.45) Arterial Blood pCO2 at Patient Temp 78 mmHg (35-46) Arterial Blood pO2 at Patient Temp 324 mmHg (75-108) Arterial Blood HCO3 30 mmol/L (21-28) Arterial Blood Base Excess 1 mmol/L (-3-3) FiO2 100 Test 07/11/19 05:50 07/11/19 05:56 White Blood Count 22.6 x10^3/uL (4.0-11.0) Red Blood Count 2.86 x10^6/uL (3.50-5.40) Hemoglobin 9.5 g/dL (12.0-15.5) Hematocrit 28.6 % (36.0-47.0) Mean Corpuscular Volume 100 fL (79-100) Mean Corpuscular Hemoglobin 33 pg (25-35) Mean Corpuscular Hemoglobin Concent 33 g/dL (31-37) Red Cell Distribution Width 14.0 % (11.5-14.5) Platelet Count 291 x10^3/uL (140-400) Neutrophils (%) (Auto) 91 % (31-73) Lymphocytes (%) (Auto) 3 % (24-48) Monocytes (%) (Auto) 5 % (0-9) Eosinophils (%) (Auto) 1 % (0-3) Basophils (%) (Auto) 0 % (0-3) Neutrophils # (Auto) 20.7 x10^3/uL (1.8-7.7) Lymphocytes # (Auto) 0.6 x10^3/uL (1.0-4.8) Monocytes # (Auto) 1.1 x10^3/uL (0.0-1.1) Eosinophils # (Auto) 0.2 x10^3/uL (0.0-0.7) Basophils # (Auto) 0.0 x10^3/uL (0.0-0.2) Sodium Level 138 mmol/L (136-145) Potassium Level 4.1 mmol/L (3.5-5.1) Chloride Level 99 mmol/L (98-107) Carbon Dioxide Level 31 mmol/L (21-32) Anion Gap 8 (6-14) Blood Urea Nitrogen 57 mg/dL (7-20) Creatinine 5.1 mg/dL (0.6-1.0) Estimated GFR (Cockcroft-Gault) 9.0 BUN/Creatinine Ratio 11 (6-20) Glucose Level 212 mg/dL (70-99) Calcium Level 7.3 mg/dL (8.5-10.1) Total Bilirubin 0.3 mg/dL (0.2-1.0) Aspartate Amino Transf (AST/SGOT) 37 U/L (15-37) Alanine Aminotransferase (ALT/SGPT) 21 U/L (14-59) Alkaline Phosphatase 163 U/L (46-116) Total Protein 4.8 g/dL (6.4-8.2) Albumin 1.4 g/dL (3.4-5.0) Albumin/Globulin Ratio 0.4 (1.0-1.7) Lipase 162 U/L (73-393) Glucose (Fingerstick) 155 mg/dL (70-99) Problem List Problems Medical Problems: (1) Acute pancreatitis Status: Acute (2) Cholelithiasis Status: Acute Assessment/Plan severe pancreatitis resp acidosis ARF hypotension leukocytosis vent support dialysis CT abd if stable enough to go for exam to reassess pancreatic changes d/w Dr Elam (ID) MARV WYNNE MD Jul 11, 2019 08:41
--- NOTE | 2019-07-11 08:43 | RAD ---
Examination: Frontal view of the chest and frontal view of the abdomen HISTORY: History of ET tube placement, pancreatitis COMPARISON: 07/09/2019 FINDINGS: The ET tube is identified in the trachea the level of the clavicles. The feeding tube is identified in the stomach. Left internal jugular line is identified. Right internal jugular dialysis catheter is identified. Right-sided PICC line is identified. Low lung volumes and technique accentuates heart and pulmonary vascularity. Mild prominent bilateral interstitial lung markings likely congestive changes with bibasilar lung airspace opacities likely atelectasis or infiltrates. Probable small left pleural effusion identified. Paucity of gas in the small bowel limits evaluation. Nonspecific bowel gas pattern IMPRESSION: 1. Lines and tubes as described. 2. Bibasilar lung airspace opacities likely atelectasis or infiltrate with small left pleural effusion. Probable mild congestive changes. 3. Nonspecific bowel gas pattern. Electronically signed by: Priyank Delgado MD (07/11/2019 8:40 AM) [id number]
[2019-07-11] MEDS: MIDAZOLAM HCL 50 MG in IV NORMAL SALINE 50ML 50 ML IV PRN ×4 (08:54→23:48)
[2019-07-11 09:02] LABS: BASE EXCESS ABG -1 mmol/L (-3-3); HCO3 ABG 28 mmol/L (21-28); PO2 ABG 75 mmHg (75-108); SAT O2 ABG 93 % (92-99)
--- NOTE | 2019-07-11 09:14 | RAD ---
Procedure: Ultrasound-guided placement left internal jugular central venous catheter07/11/2019 7:10 AM Clinical Indication: VENOUS ACCESS Discussion: The risks and benefits of the procedure were discussed the patient and/or their sales representative business courses. Informed consent was obtained. A timeout procedure was performed. All elements of maximal sterile barrier technique including the use of a cap, mask, sterile gown, sterile gloves, large sterile sheet, appropriate hand hygiene, and 2% chlorhexidine for cutaneous antisepsis (or acceptable alternative antiseptic per current guidelines) were followed for this procedure. The patient was prepped and draped in the usual sterile fashion. Ultrasound interrogation of the left neck revealed patency and compressibility of the right internal jugular vein. A 21-gauge micropuncture was then used to gain access to this vein under ultrasound guidance. A hard copy ultrasound image was recorded. A guidewire was advanced centrally. 5 Jamaican sheath was placed. Over a wire following dilatation, a triple-lumen central venous catheter was advanced centrally. Catheter was found to flush and aspirate normally. Follow-up chest radiograph demonstrates tip at the cavoatrial junction. Catheter secured in place and a sterile dressing was applied. No immediate complications were identified. Impression: Successful ultrasound-guided placement of left internal jugular triple-lumen central venous catheter
--- NOTE | 2019-07-11 09:15 | NUR ---
ET tube advance to 22cm at the lip per radiology.
[2019-07-11 09:20] LABS: BASE EXCESS ABG 1 mmol/L (-3-3); HCO3 ABG 30 mmol/L (21-28); SAT O2 ABG 77 % (92-99)
--- NOTE | 2019-07-11 09:30 | NUR ---
ABG results called to Dr. Gordillo and ordered to change vent settings to 10 of PEEP and I:E [address] Gordillo also notified that current O2 sats are in the low 80's.
--- NOTE | 2019-07-11 09:30 | PDOC ---
Objective: Objective: D/w staff. Vital Signs: Vital Signs Date Time Temp Pulse Resp B/P (MAP) Pulse Ox O2 Delivery O2 Flow Rate FiO2 07/11/19 07:41 Bi-pap 07/11/19 07:17 100 07/11/19 06:50 116 83/46 (58) 07/11/19 06:00 31 07/11/19 04:00 97.7 97.7 07/10/19 18:12 6.0 Labs: Laboratory Tests Test 07/10/19 11:50 07/10/19 18:18 07/11/19 00:38 07/11/19 05:32 Glucose (Fingerstick) 216 mg/dL 223 mg/dL 260 mg/dL O2 Saturation 99 % Arterial Blood pH 7.20 Arterial Blood pCO2 at Patient Temp 78 mmHg Arterial Blood pO2 at Patient Temp 324 mmHg Arterial Blood HCO3 30 mmol/L Arterial Blood Base Excess 1 mmol/L FiO2 100 Test 07/11/19 05:50 07/11/19 05:56 White Blood Count 22.6 x10^3/uL Red Blood Count 2.86 x10^6/uL Hemoglobin 9.5 g/dL Hematocrit 28.6 % Mean Corpuscular Volume 100 fL Mean Corpuscular Hemoglobin 33 pg Mean Corpuscular Hemoglobin Concent 33 g/dL Red Cell Distribution Width 14.0 % Platelet Count 291 x10^3/uL Neutrophils (%) (Auto) 91 % Lymphocytes (%) (Auto) 3 % Monocytes (%) (Auto) 5 % Eosinophils (%) (Auto) 1 % Basophils (%) (Auto) 0 % Neutrophils # (Auto) 20.7 x10^3/uL Lymphocytes # (Auto) 0.6 x10^3/uL Monocytes # (Auto) 1.1 x10^3/uL Eosinophils # (Auto) 0.2 x10^3/uL Basophils # (Auto) 0.0 x10^3/uL Sodium Level 138 mmol/L Potassium Level 4.1 mmol/L Chloride Level 99 mmol/L Carbon Dioxide Level 31 mmol/L Anion Gap 8 Blood Urea Nitrogen 57 mg/dL Creatinine 5.1 mg/dL Estimated GFR (Cockcroft-Gault) 9.0 BUN/Creatinine Ratio 11 Glucose Level 212 mg/dL Calcium Level 7.3 mg/dL Total Bilirubin 0.3 mg/dL Aspartate Amino Transf (AST/SGOT) 37 U/L Alanine Aminotransferase (ALT/SGPT) 21 U/L Alkaline Phosphatase 163 U/L Total Protein 4.8 g/dL Albumin 1.4 g/dL Albumin/Globulin Ratio 0.4 Lipase 162 U/L Glucose (Fingerstick) 155 mg/dL BLOOD CULTURE Final NO GROWTH AFTER 5 DAYS Imaging: CXR/KUB 07/10 IMPRESSION: 1. Lines and tubes as described. 2. Bibasilar lung airspace opacities likely atelectasis or infiltrate with small left pleural effusion. Probable mild congestive changes. 3. Nonspecific bowel gas pattern. PE: GEN: / Steven and nurse present - just intubated LUNGS: vent HEART: tachycardic on monitor ABD: distended NEURO/PSYCH: sedated A/P: Gallstone pancreatitis, MOSF -- Now intubated, continue support. Last CT 317 - ?stable enough to repeat Hemodynamically unstable?: Yes Is patient in severe pain?: Yes Is NPO status required?: Yes CYNDEE FALCON Jul 11, 2019 09:30
[2019-07-11 10:02] LABS: PCO2 ABG 71 mmHg (35-46)
[2019-07-11 10:03] LABS: FIO2 ABG 45 BIPAP
[2019-07-11 10:04] LABS: PCO2 ABG 72 mmHg (35-46); PO2 ABG 45 mmHg (75-108)
--- NOTE | 2019-07-11 10:07 | PDOC ---
SUBJECTIVE ROS Intubated this am, On pressors OBJECTIVE Vital Signs Vital Signs Date Time Temp Pulse Resp B/P (MAP) Pulse Ox O2 Delivery O2 Flow Rate FiO2 07/11/19 07:41 Bi-pap 07/11/19 07:17 100 07/11/19 06:50 116 83/46 (58) 07/11/19 06:00 31 07/11/19 04:00 97.7 97.7 07/10/19 18:12 6.0 I & 0 Intake and Output 07/11/19 07:00 Intake Total 3426.3 ml Output Total 710 ml Balance 2716.3 ml IV Total 3426.3 ml Output Urine Total 285 ml Gastric Drainage Total 325 ml Oral Regurgitation 100 ml PHYSICAL EXAM Physical Exam GENERAL: Intubated on MV HEENT: Mild icterus, Intubated NECK: Supple. LUNGS: Decreased breath sounds at the bases. HEART: S1, S2, tachycardia, 110s, ABDOMEN: Distended, + BS. Rectal tube in place : Lidn + EXTREMITIES: Trace edema, no cyanosis - mottled. DERMATOLOGIC: Warm and dry. No generalized rash. CENTRAL NERVOUS SYSTEM: Intubated on MV RUE-PICC, RIJ/Temp HDC & LIJ DIAGNOSIS/ASSESSMENT Assessment & Plan JUANA - ATN, Anuric, requiring HD intubated and on pressors this am Seen on HD, tolerating , UF as 3-4 as tolerated , May need to switch to CRRT HyperKalemia- K normal Acidosis - Bicarb Normal- on higher side , Currently on on IV bicarb and TPN with bicarb DC IV bicarb HypoCalcemia- Corrected Ca normal Acute 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 GI, ID, and general surgery following Calculus of gallbladder with acute cholecystitis without obstruction - with secondary pancreatitis. Lap ronel is indicated, will need to await pancreatitis resolution HTN - Hypotensive currently and on pressors Sepsis - with acute pancreatitis as end organ dysfunction, sign of infection, zyvox, merrem Hypoxia with respiratory failure - intubated this am (07/10) COMMENT/RELEVANT DATA Meds Current Medications Medications (Trade) Dose Ordered Sig/Yvon Start Time Stop Time Status Last Admin Dose Admin Acetaminophen (Tylenol) 650 mg PRN Q6HRS PRN 07/09/19 03:36 3/21/20 16:36 650 MG Albumin Human 200 ml @ 200 mls/hr 1X ONCE 07/11/19 07:30 07/11/19 08:29 DC 07/11/19 08:51 200 MLS/HR Albuterol Sulfate (Ventolin Neb Soln) 2.5 mg 1X ONCE 07/05/19 22:30 07/05/19 22:31 DC 07/06/19 00:56 2.5 MG Artificial Tears (Artificial Tears) 1 drop PRN Q1HR PRN 07/11/19 08:15 Atenolol (Tenormin) 100 mg DAILY 07/05/19 09:00 07/04/19 20:08 DC Benzocaine (Hurricaine One) 1 spray 1X ONCE 07/08/19 14:30 07/08/19 14:31 DC 07/08/19 16:38 1 SPRAY Calcium Carbonate/ Glycine (Tums) 500 mg PRN AFTMEALHC PRN 07/06/19 17:45 Calcium Chloride 1000 mg/Sodium Chloride 110 ml @ 220 mls/hr 1X ONCE 07/05/19 22:30 07/05/19 22:59 DC 07/05/19 22:11 220 MLS/HR Calcium Chloride 3000 mg/Sodium Chloride 1,030 ml @ 50 mls/hr [id number] 07/07/19 08:00 07/09/19 15:23 DC 07/09/19 02:17 50 MLS/HR Calcium Gluconate (Calcium Gluconate) 2,000 mg 1X ONCE 07/07/19 02:15 07/07/19 02:16 DC 07/07/19 02:19 2,000 MG Calcium Gluconate 1000 mg/Sodium Chloride 110 ml @ 220 mls/hr 1X ONCE 07/06/19 03:30 07/06/19 03:59 DC 07/06/19 03:21 220 MLS/HR Calcium Gluconate 2000 mg/Sodium Chloride 120 ml @ 220 mls/hr 1X ONCE 07/06/19 07:30 07/06/19 08:02 DC 07/06/19 09:05 220 MLS/HR Dextrose (Dextrose 50%-Water Syringe) 12.5 gm PRN Q15MIN PRN 07/04/19 09:30 Digoxin (Lanoxin) 125 mcg 1X ONCE 07/07/19 18:00 07/07/19 18:01 DC 07/07/19 17:10 125 MCG Diphenhydramine HCl (Benadryl) 25 mg 1X PRN PRN 07/11/19 07:30 07/12/19 07:29 Etomidate (Amidate) 8 mg 1X ONCE 07/11/19 08:30 07/11/19 08:31 DC 07/11/19 08:33 8 MG Fentanyl Citrate 30 ml @ 0 mls/hr CONT PRN 07/11/19 08:15 07/11/19 09:10 2.5 MLS/HR Fentanyl Citrate (Fentanyl 2ml Vial) 100 mcg STK-MED ONCE 07/04/19 03:18 07/04/19 03:18 DC Furosemide (Lasix) 40 mg 1X ONCE 07/05/19 22:30 07/05/19 22:31 DC 07/05/19 22:12 40 MG Hydromorphone HCl (Dilaudid) 1 mg PRN Q3HRS PRN 07/05/19 12:00 07/11/19 05:13 1 MG Info (CONTRAST GIVEN -- Rx MONITORING) 1 each PRN DAILY PRN 07/05/19 17:00 07/07/19 16:59 DC Info (PHARMACY MONITORING -- do not chart) 1 each PRN DAILY PRN 07/11/19 07:30 Info (Tpn Per Pharmacy) 1 each PRN DAILY PRN 07/06/19 12:30 UNV Insulin Human Lispro (HumaLOG) 0-9 UNITS Q6HRS 07/04/19 09:30 07/11/19 06:01 4 UNITS Insulin Human Regular (HumuLIN R VIAL) 5 unit 1X ONCE 07/05/19 22:30 07/05/19 22:31 DC 07/05/19 22:14 5 UNIT Iohexol (Omnipaque 300 Mg/ml) 60 ml 1X ONCE 07/05/19 17:00 07/05/19 17:01 DC 07/05/19 17:20 60 ML Iohexol (Omnipaque 350 Mg/ml) 90 ml 1X ONCE 07/04/19 03:30 07/04/19 03:31 DC 07/04/19 03:25 90 ML Ketorolac Tromethamine (Toradol 30mg Vial) 30 mg 1X ONCE 07/04/19 03:00 07/04/19 03:01 DC 07/04/19 02:54 30 MG Lidocaine HCl (Buffered Lidocaine 1%) 6 ml 1X ONCE 07/06/19 10:15 07/06/19 10:16 DC 07/06/19 10:26 4 ML Lidocaine HCl (Glydo (Lidocaine) Jelly) 1 ramu 1X ONCE 07/08/19 14:30 07/08/19 14:31 DC 07/08/19 16:38 1 RAMU Lidocaine HCl (Xylocaine-Mpf 1% 2ml Vial) 2 ml STK-MED ONCE 07/06/19 08:47 07/06/19 08:47 DC Linezolid/Dextrose 300 ml @ 300 mls/hr Q12HR 07/08/19 20:00 07/10/19 21:09 300 MLS/HR Lorazepam (Ativan Inj) 1 mg PRN Q4HRS PRN 07/07/19 09:00 07/11/19 00:34 1 MG Magnesium Sulfate 100 ml @ 25 mls/hr 1X ONCE 07/07/19 13:00 07/07/19 16:59 DC 07/07/19 12:48 25 MLS/HR Meropenem 1 gm/ Sodium Chloride 100 ml @ 200 mls/hr Q8HRS 07/05/19 20:00 07/06/19 08:48 DC 07/06/19 05:45 200 MLS/HR Meropenem 500 mg/ Sodium Chloride 50 ml @ 100 mls/hr Q12HR 07/06/19 18:00 07/10/19 21:09 100 MLS/HR Metoprolol Tartrate (Lopressor Vial) 5 mg Q6HRS 07/05/19 10:15 07/11/19 05:49 5 MG Metronidazole 100 ml @ 100 mls/hr Q6HRS 07/11/19 08:30 Micafungin Sodium 100 mg/Dextrose 100 ml @ 100 mls/hr Q24H 07/11/19 09:00 Midazolam HCl (Versed) 5 mg 1X ONCE 07/11/19 08:30 07/11/19 08:31 DC Midazolam HCl 50 mg/Sodium Chloride 50 ml @ 0 mls/hr CONT PRN 07/11/19 08:15 07/11/19 08:54 1 MLS/HR Morphine Sulfate (Morphine Sulfate) 2 mg PRN Q2HR PRN 07/04/19 05:00 07/05/19 14:15 DC 07/05/19 12:26 2 MG Norepinephrine Bitartrate 8 mg/ Dextrose 258 ml @ 17.299 mls/ hr CONT PRN 07/05/19 15:30 07/11/19 06:51 17.299 MLS/HR Ondansetron HCl (Zofran) 4 mg PRN Q4HRS PRN 07/04/19 09:30 07/09/19 16:15 4 MG Pantoprazole Sodium (PROTONIX VIAL for IV PUSH) 40 mg DAILYAC 07/04/19 11:30 07/10/19 07:57 40 MG Piperacillin Sod/ Tazobactam Sod 4.5 gm/Sodium Chloride 100 ml @ 200 mls/hr 1X ONCE 07/04/19 06:00 07/04/19 06:29 DC 07/04/19 05:44 200 MLS/HR Potassium Chloride/Water 100 ml @ 100 mls/hr 1X ONCE 07/08/19 14:00 07/08/19 14:59 DC 07/08/19 14:09 100 MLS/HR Prochlorperazine Edisylate (Compazine) 10 mg PRN Q6HRS PRN 07/04/19 17:45 07/05/19 00:42 10 MG Propofol 0 ml @ As Directed STK-MED ONCE 07/11/19 07:53 07/11/19 07:53 DC Sodium Bicarbonate 50 meq/Sodium Chloride 1,050 ml @ 75 mls/hr Q14H 07/06/19 07:30 07/10/19 21:10 75 MLS/HR Sodium Chloride 1,000 ml @ 400 mls/hr Q2H30M PRN 07/11/19 07:28 07/11/19 19:27 Sodium Chloride (Normal Saline Flush) 10 ml 1X PRN PRN 07/09/19 08:00 07/10/19 07:59 DC Sodium Chloride 90 meq/Calcium Gluconate 10 meq/ Multivitamins 10 ml/Chromium/ Copper/Manganese/ Seleni/Zn 0.5 ml/ Total Parenteral Nutrition/Amino Acids/Dextrose/ Fat Emulsion Intravenous 1,512 ml @ 63 mls/hr TPN CONT 07/06/19 22:00 07/07/19 21:59 DC 07/06/19 22:06 63 MLS/HR Sodium Chloride 90 meq/Calcium Gluconate 10 meq/ Multivitamins 10 ml/Chromium/ Copper/Manganese/ Seleni/Zn 1 ml/ Total Parenteral Nutrition/Amino Acids/Dextrose/ Fat Emulsion Intravenous 55.005 ml @ 2.292 mls/hr TPN CONT 07/06/19 22:00 07/06/19 12:33 DC Sodium Chloride 90 meq/Magnesium Sulfate 10 meq/ Calcium Gluconate 20 meq/ Multivitamins 10 ml/Chromium/ Copper/Manganese/ Seleni/Zn 0.5 ml/ Total Parenteral Nutrition/Amino Acids/Dextrose/ Fat Emulsion Intravenous 1,512 ml @ 63 mls/hr TPN CONT 07/07/19 22:00 07/08/19 21:59 DC 07/07/19 22:25 63 MLS/HR Sodium Chloride 90 meq/Potassium Chloride 15 meq/ Potassium Phosphate 10 mmol/ Magnesium Sulfate 10 meq/Calcium Gluconate 20 meq/ Multivitamins 10 ml/Chromium/ Copper/Manganese/ Seleni/Zn 0.5 ml/ Total Parenteral Nutrition/Amino Acids/Dextrose/ Fat Emulsion Intravenous 1,200 ml @ 50 mls/hr TPN CONT 07/10/19 22:00 07/11/19 21:59 07/10/19 23:29 50 MLS/HR Sodium Chloride 90 meq/Potassium Chloride 15 meq/ Potassium Phosphate 15 mmol/ Magnesium Sulfate 10 meq/Calcium Gluconate 20 meq/ Multivitamins 10 ml/Chromium/ Copper/Manganese/ Seleni/Zn 0.5 ml/ Total Parenteral Nutrition/Amino Acids/Dextrose/ Fat Emulsion Intravenous 1,200 ml @ 50 mls/hr TPN CONT 07/10/19 22:00 07/10/19 14:17 DC Succinylcholine Chloride (Anectine) 120 mg 1X ONCE 07/11/19 08:30 07/11/19 08:31 DC 07/11/19 08:34 120 MG Lab Laboratory Tests Test 07/10/19 11:50 07/10/19 18:18 07/11/19 00:38 07/11/19 05:32 Glucose (Fingerstick) 216 mg/dL (70-99) 223 mg/dL (70-99) 260 mg/dL (70-99) O2 Saturation 99 % (92-99) Arterial Blood pH 7.20 (7.35-7.45) Arterial Blood pCO2 at Patient Temp 78 mmHg (35-46) Arterial Blood pO2 at Patient Temp 324 mmHg (75-108) Arterial Blood HCO3 30 mmol/L (21-28) Arterial Blood Base Excess 1 mmol/L (-3-3) FiO2 100 Test 07/11/19 05:50 07/11/19 05:56 White Blood Count 22.6 x10^3/uL (4.0-11.0) Red Blood Count 2.86 x10^6/uL (3.50-5.40) Hemoglobin 9.5 g/dL (12.0-15.5) Hematocrit 28.6 % (36.0-47.0) Mean Corpuscular Volume 100 fL (79-100) Mean Corpuscular Hemoglobin 33 pg (25-35) Mean Corpuscular Hemoglobin Concent 33 g/dL (31-37) Red Cell Distribution Width 14.0 % (11.5-14.5) Platelet Count 291 x10^3/uL (140-400) Neutrophils (%) (Auto) 91 % (31-73) Lymphocytes (%) (Auto) 3 % (24-48) Monocytes (%) (Auto) 5 % (0-9) Eosinophils (%) (Auto) 1 % (0-3) Basophils (%) (Auto) 0 % (0-3) Neutrophils # (Auto) 20.7 x10^3/uL (1.8-7.7) Lymphocytes # (Auto) 0.6 x10^3/uL (1.0-4.8) Monocytes # (Auto) 1.1 x10^3/uL (0.0-1.1) Eosinophils # (Auto) 0.2 x10^3/uL (0.0-0.7) Basophils # (Auto) 0.0 x10^3/uL (0.0-0.2) Sodium Level 138 mmol/L (136-145) Potassium Level 4.1 mmol/L (3.5-5.1) Chloride Level 99 mmol/L (98-107) Carbon Dioxide Level 31 mmol/L (21-32) Anion Gap 8 (6-14) Blood Urea Nitrogen 57 mg/dL (7-20) Creatinine 5.1 mg/dL (0.6-1.0) Estimated GFR (Cockcroft-Gault) 9.0 BUN/Creatinine Ratio 11 (6-20) Glucose Level 212 mg/dL (70-99) Calcium Level 7.3 mg/dL (8.5-10.1) Total Bilirubin 0.3 mg/dL (0.2-1.0) Aspartate Amino Transf (AST/SGOT) 37 U/L (15-37) Alanine Aminotransferase (ALT/SGPT) 21 U/L (14-59) Alkaline Phosphatase 163 U/L (46-116) Total Protein 4.8 g/dL (6.4-8.2) Albumin 1.4 g/dL (3.4-5.0) Albumin/Globulin Ratio 0.4 (1.0-1.7) Lipase 162 U/L (73-393) Glucose (Fingerstick) 155 mg/dL (70-99) Results All relevant outside records, renal labs, imaging studies, telemetry/EKG's were reviewed. VERENA KENT MD Jul 11, 2019 10:07
--- NOTE | 2019-07-11 11:30 | PDOC ---
[employer] PROGRESS NOTE Chief Complaint Chief Complaint Respiratory failure requiring intubation this morning Severe Acute pancreatitis Acute kidney failure now requiring dialysis Salpingo--itis Gallstones (Calculus of gallbladder with acute cholecystitis without obstruction) HTN Leukocytosis Hypoxia Uterine fibroid Hypoxia with respiratory failure Intractable pain Intractable nausea History of Present Illness History of Present Illness [id number] Patient seen and examined in the ICU She had to be intubated this morning On assist-control 25/450/100% with 10 of PEEP and only satting 87% She is extremely critically ill I'm not sure if she will survive Chart reviewed Discussed with RN Ms Diaz is a 48yo F w/ PMHx HTN, prediabetes who presents the emergency room complaints of abdominal pain. Patient described off and on 3 days. She states is constant, described as a squeezing sensation in a band-like distribution. + nausea, vomiting. She denies any fever or diarrhea. Patient denies any abdominal surgical procedures. She states is worse with movements, car ride. Pain initially was upper abdomen however now pretty much generalized. Last bowel movement was 07/03/2019. Nothing makes her pain better. Patient denies any shortness of breath. She does state the pain moves into her chest. Denies any headache or visual changes. Lipase 23099, AST 401, ALT 249, Bilirubin 1.4. CT abdomen confirms pancreatic inflammation, peripancreatic fluid and inflammatory changes around the pancreas consistent with pancreatitis. Cholelithiasis and 1.4cm uterine fibroid as well as possible left salpingitis. Admitted for further care GI, General surgery, ID, Pulm consulted. 07/04: Overnight per report no urine output. Added dilaudid for pain, PICC placed per IR. Renal US negative.Seen bedside in ICU, given 2L additional NSS and albumin infusion. Still hypotensive, started on levophed. Repeat CT abdomen with necrosis. Updated her fiancee 07/05: Sats are only 87% on nasal cannula oxygen. Dialysis catheter per nephrology 07/06: She is now on BiPAP appears more ill, now on dialysis 07/07: Seen on BiPAP. Her mother and another family member are present and seemed to be good support for her. Currently on dialysis. Appears critically ill 07/08: Overnight Tmax 101.7 , still on BiPAP FiO2 40%, still on low dose Levophed gtt, TPN initiated. On dialysis Overnight still febrile. Dialysis today. She wakes up and responds to pain. No CP. Vitals/I&O Vitals/I&O: Vital Signs Date Time Temp Pulse Resp B/P (MAP) Pulse Ox O2 Delivery O2 Flow Rate FiO2 07/11/19 10:00 120 29 116/80 (92) 87 Ventilator 07/11/19 08:00 100.4 100.4 07/10/19 18:12 6.0 I & O 07/10/19 07/10/19 07/11/19 15:00 23:00 07:00 Intake Total 350 ml 1583 ml 1493.3 ml Output Total 60 ml 420 ml 230 ml Balance 290 ml 1163 ml 1263.3 ml Physical Exam Physical Exam: GENERAL: Lethargic, on BiPAP, + mitts, calm HEENT: Mild icterus. Oral mucosa very dry. NECK: Supple. LUNGS: Decreased breath sounds at the bases. Soft wheezes HEART: S1, S2, tachycardia, 110s, regular ABDOMEN: Distended, moans to palpation, reproducible, + BS. Rectal tube in place : Ilnd EXTREMITIES: Trace edema, no cyanosis - mottled. DERMATOLOGIC: Warm and dry. No generalized rash. CENTRAL NERVOUS SYSTEM: Extremely lethargic RUE-PICC, RIJ/Temp HDC & LIJ without signs of complications General: Other (ill appearing ) Heart: Other (increased rate) Lungs: Crackles, Other (dull at bases) Abdomen: Other (mildly distended, "doughy") Extremities: No edema, Other (SOME CLUBBING ) Skin: No rashes, No breakdown, No significant lesion Labs Labs: Laboratory Tests Test 07/10/19 11:50 07/10/19 18:18 07/11/19 00:38 07/11/19 05:32 Glucose (Fingerstick) 216 mg/dL (70-99) 223 mg/dL (70-99) 260 mg/dL (70-99) O2 Saturation 99 % (92-99) Arterial Blood pH 7.20 (7.35-7.45) Arterial Blood pCO2 at Patient Temp 78 mmHg (35-46) Arterial Blood pO2 at Patient Temp 324 mmHg (75-108) Arterial Blood HCO3 30 mmol/L (21-28) Arterial Blood Base Excess 1 mmol/L (-3-3) FiO2 100 Test 07/11/19 05:50 07/11/19 05:56 07/11/19 08:00 07/11/19 09:30 White Blood Count 22.6 x10^3/uL (4.0-11.0) Red Blood Count 2.86 x10^6/uL (3.50-5.40) Hemoglobin 9.5 g/dL (12.0-15.5) Hematocrit 28.6 % (36.0-47.0) Mean Corpuscular Volume 100 fL (79-100) Mean Corpuscular Hemoglobin 33 pg (25-35) Mean Corpuscular Hemoglobin Concent 33 g/dL (31-37) Red Cell Distribution Width 14.0 % (11.5-14.5) Platelet Count 291 x10^3/uL (140-400) Neutrophils (%) (Auto) 91 % (31-73) Lymphocytes (%) (Auto) 3 % (24-48) Monocytes (%) (Auto) 5 % (0-9) Eosinophils (%) (Auto) 1 % (0-3) Basophils (%) (Auto) 0 % (0-3) Neutrophils # (Auto) 20.7 x10^3/uL (1.8-7.7) Lymphocytes # (Auto) 0.6 x10^3/uL (1.0-4.8) Monocytes # (Auto) 1.1 x10^3/uL (0.0-1.1) Eosinophils # (Auto) 0.2 x10^3/uL (0.0-0.7) Basophils # (Auto) 0.0 x10^3/uL (0.0-0.2) Sodium Level 138 mmol/L (136-145) Potassium Level 4.1 mmol/L (3.5-5.1) Chloride Level 99 mmol/L (98-107) Carbon Dioxide Level 31 mmol/L (21-32) Anion Gap 8 (6-14) Blood Urea Nitrogen 57 mg/dL (7-20) Creatinine 5.1 mg/dL (0.6-1.0) Estimated GFR (Cockcroft-Gault) 9.0 BUN/Creatinine Ratio 11 (6-20) Glucose Level 212 mg/dL (70-99) Calcium Level 7.3 mg/dL (8.5-10.1) Total Bilirubin 0.3 mg/dL (0.2-1.0) Aspartate Amino Transf (AST/SGOT) 37 U/L (15-37) Alanine Aminotransferase (ALT/SGPT) 21 U/L (14-59) Alkaline Phosphatase 163 U/L (46-116) Total Protein 4.8 g/dL (6.4-8.2) Albumin 1.4 g/dL (3.4-5.0) Albumin/Globulin Ratio 0.4 (1.0-1.7) Lipase 162 U/L (73-393) Glucose (Fingerstick) 155 mg/dL (70-99) O2 Saturation 93 % (92-99) 77 % (92-99) Arterial Blood pH 7.22 (7.35-7.45) 7.24 (7.35-7.45) Arterial Blood pCO2 at Patient Temp 71 mmHg (35-46) 72 mmHg (35-46) Arterial Blood pO2 at Patient Temp 75 mmHg (75-108) 45 mmHg (75-108) Arterial Blood HCO3 28 mmol/L (21-28) 30 mmol/L (21-28) Arterial Blood Base Excess -1 mmol/L (-3-3) 1 mmol/L (-3-3) FiO2 45 bipap Assessment and Plan Assessmemt and Plan Problems Medical Problems: (1) Acute pancreatitis Status: Acute (2) Cholelithiasis Status: Acut Respiratory failure requiring intubation this morning Severe Acute pancreatitis Acute kidney failure now requiring dialysis Salpingo--itis Gallstones (Calculus of gallbladder with acute cholecystitis without obstruction) HTN Leukocytosis Hypoxia Uterine fibroid Hypoxia with respiratory failure Intractable pain Intractable nausea Plan Mechanical ventilation Hemodialysis BiPAP ICU monitoring Trend labs especially white count and lipase levels We have consulted GI and general surgery I consulted [employer]EE as well IV antibiotics IV fluids NH narcotics When necessary anti-medics Home meds if possible DVT prophylaxis Full code She is critically ill Total time 32 minutes Comment Review of Relevant I have reviewed the following items kolby (where applicable) has been applied. Medications: Current Medications Medications (Trade) Dose Ordered Sig/Yvon Route PRN Reason Start Time Stop Time Status Last Admin Dose Admin Sodium Chloride 90 meq/Potassium Chloride 15 meq/ Potassium Phosphate 10 mmol/ Magnesium Sulfate 10 meq/Calcium Gluconate 20 meq/ Multivitamins 10 ml/Chromium/ Copper/Manganese/ Seleni/Zn 0.5 ml/ Total Parenteral Nutrition/Amino Acids/Dextrose/ Fat Emulsion Intravenous 1,200 ml @ 50 mls/hr TPN CONT IV 07/10/19 22:00 07/11/19 21:59 07/10/19 23:29 Albumin Human 200 ml @ 200 mls/hr 1X ONCE IV 07/11/19 07:30 07/11/19 08:29 DC 07/11/19 08:51 Fentanyl Citrate 30 ml @ 0 mls/hr CONT PRN IV SEE PROTOCOL 07/11/19 08:15 07/11/19 09:10 Midazolam HCl 50 mg/Sodium Chloride 50 ml @ 0 mls/hr CONT PRN IV SEE PROTOCOL 07/11/19 08:15 07/11/19 08:54 Etomidate (Amidate) 8 mg 1X ONCE IV 07/11/19 08:30 07/11/19 08:31 DC 07/11/19 08:33 Succinylcholine Chloride (Anectine) 120 mg 1X ONCE IV 07/11/19 08:30 07/11/19 08:31 DC 07/11/19 08:34 Hemodynamically unstable?: Yes Is patient in severe pain?: Yes Is NPO status required?: Yes BEBO KIRBY III DO Jul 11, 2019 11:30
[2019-07-11] MEDS: PANTOPRAZOLE IV PUSH 40 MG VIAL. IVP SCH (13:32)
[2019-07-11] MEDS: MEROPENEM 500 MG in IV NORMAL SALINE 50ML 50 ML IV SCH ×2 (13:33→21:01)
[2019-07-11] MEDS: TPN PER PHARMACY MC PRN (14:16)
--- NOTE | 2019-07-11 14:19 | NUR ---
Pharmacy TPN Dosing Note S: SCOTT AVILA is a 48 year old F Currently receiving Central Continuous TPN started 07/06/19 B:Pertinent PMH: Necrotizing pancreatitis Height: 5 feet, 8 inches Weight: 109.940537 kg Current diet: NPO LABS: Sodium: 138 Potassium: 4.1 Chloride: 99 Calcium: 7.3 Corrected Calcium: 9.38 Magnesium: 2.2 CO2: 31 SCr: 5.1 Glucose: 155 Albumin: 1.4 AST: 56 ALT: 45 TPN FORMULA: TPN TYPE: Central Continuous AMINO ACIDS: 125 gm DEXTROSE: 195 gm LIPIDS: 40 gm SODIUM CHLORIDE: 90 mEq SODIUM ACETATE: -- mEq SODIUM PHOSPHATE: -- mmol POTASSIUM CHLORIDE: 15 mEq POTASSIUM ACETATE: -- mEq POTASSIUM PHOSPHATE: 10 mmol MAGNESIUM: 10 mEq CALCIUM: 20 mEq INSULIN: -- units MULTIPLE VITAMIN: 10 ml TRACE ELEMENTS: 0.5 ml(s) TPN PLAN: increase aa to 125gm, lipid to 40 gm. increase volume to 1400 ml due to increase in aa . R: Continue TPN AT 58 ML/HR Will monitor electrolytes, glucose, and tolerance to TPN. KRISTIAN APODACA [facility], 07/11/19 [id number]
[2019-07-11] MEDS: POTASSIUM CHLORIDE 15 MEQ in DIALYSIS SOLUTION BGK 0/2.5 5,000 ML IV SCH ×8 (15:01→19:25)
--- NOTE | 2019-07-11 15:41 | NUR ---
SS following up with discharge planning. SS discussed with RNAbby. Pt currently on the vent and CRRT. SS will continue to follow for discharge planning.
[2019-07-11] MEDS: HEPARIN for SUB-Q USE 5,000 UNIT/ML VIAL. SQ SCH ×2 (15:56→22:13)
[2019-07-11] MEDS: MICAFUNGIN 100 MG in IV DEXTROSE 5% 100ML 100 ML IV SCH (17:17)
[2019-07-11 17:51] LABS: BASE EXCESS ABG 3 mmol/L (-3-3); HCO3 ABG 27 mmol/L (21-28); PCO2 ABG 40 mmHg (35-46); PO2 ABG 63 mmHg (75-108); SAT O2 ABG 93 % (92-99)
[2019-07-11 17:54] LABS: FIO2 ABG 90 +10PEEP
--- NOTE | 2019-07-11 21:00 | NUR ---
SBP 60s-80s on CRRT with patient fluid removal rate at 100cc per hour and levophed gtt started. Patient now being kept even on fluid removal rate. Other VSS. Will monitor.
[2019-07-11 21:39] LABS: CALCIUM 7.5 mg/dL (8.5-10.1); CREATININE 2.6 mg/dL (0.6-1.0); GFR 19.6; MAGNESIUM 2.2 mg/dL (1.8-2.4); PHOSPHORUS 2.5 mg/dL (2.6-4.7); POTASSIUM 3.4 mmol/L (3.5-5.1)
[2019-07-11] MEDS ORDERED: TOTAL PARENTERAL NUTRITION IV SCH ×10 (22:00)
[2019-07-11] MEDS ORDERED: DEXTROSE 70% IV SCH ×10 (22:00)
[2019-07-11] MEDS ORDERED: AMINO ACID IV SCH ×10 (22:00)
[2019-07-11] MEDS ORDERED: [UNRECOGNIZED DRUG - OTHER] IV SCH ×10 (22:00)
[2019-07-12] VITALS (36 sets, daily range): BP systolic 83–133; BP diastolic 46–83
[2019-07-12] MEDS: INSULIN LISPRO 300 UNITS/3 ML VIAL. SQ SCH ×4 (00:11→17:39)
[2019-07-12] MEDS: POTASSIUM CHLORIDE 15 MEQ in DIALYSIS SOLUTION BGK 0/2.5 5,000 ML IV SCH ×16 (00:13→11:12)
--- NOTE | 2019-07-12 05:12 | NUR ---
CRRT filter clotting. 200 cc NS flush attempted but without success. Blood returned and CRRT disconnected. Dialysis lines flushed and capped. Will monitor.
[2019-07-12 05:42] LABS: BASO # 0.1 x10^3/uL (0.0-0.2); BASO % 0 % (0-3); EOS # 0.4 x10^3/uL (0.0-0.7); EOS % 2 % (0-3); HEMATOCRIT 24.4 % (36.0-47.0); HEMOGLOBIN 8.3 g/dL (12.0-15.5); LYMPH # 0.4 x10^3/uL (1.0-4.8); LYMPH % 2 % (24-48); MEAN CORPUSCULAR HEMOGLOBIN 33 pg (25-35); MEAN CORPUSCULAR HGB CONC 34 g/dL (31-37); MEAN CORPUSCULAR VOLUME 97 fL (79-100); MONO # 0.6 x10^3/uL (0.0-1.1); MONO % 3 % (0-9); NEUT # 19.1 x10^3/uL (1.8-7.7); NEUT % 93 % (31-73); PLATELET COUNT 242 x10^3/uL (140-400); RED BLOOD COUNT 2.52 x10^6/uL (3.50-5.40); RED CELL DISTRIBUTION WIDTH 13.1 % (11.5-14.5); WHITE BLOOD COUNT 20.5 x10^3/uL (4.0-11.0)
[2019-07-12] MEDS: METOPROLOL TARTRATE 5 MG/5 ML VIAL. IVP SCH ×3 (05:44→17:32)
[2019-07-12] MEDS: HEPARIN for SUB-Q USE 5,000 UNIT/ML VIAL. SQ SCH ×3 (05:55→22:15)
[2019-07-12 06:02] LABS: CALCIUM 7.5 mg/dL (8.5-10.1); CREATININE 2.2 mg/dL (0.6-1.0); GFR 23.7; MAGNESIUM 2.2 mg/dL (1.8-2.4); PHOSPHORUS 2.2 mg/dL (2.6-4.7); POTASSIUM 3.3 mmol/L (3.5-5.1)
--- NOTE | 2019-07-12 08:00 | PDOC ---
Infectious Disease Note Subjective Subjective Fever Tmax 100.4 Intubated FiO2 80% PEEP 10 On Levophed gtt this am - dose varies TPN ROS ROS unable to obtain Vital Sign Vital Signs Vital Signs Date Time Temp Pulse Resp B/P (MAP) Pulse Ox O2 Delivery O2 Flow Rate FiO2 07/12/19 07:35 100.4 120 25 103/74 (84) 100 Ventilator 100.4 Physical Exam PHYSICAL EXAM GENERAL:Intubated/sedted HEENT: Mild icterus. Oral mucosa very dry. NECK: Supple. LUNGS: Decreased breath sounds at the bases. HEART: S1, S2, tachycardia, 120s, regular ABDOMEN: Distended, + BS. Rectal tube in place : Lind EXTREMITIES: Trace edema, no cyanosis - mottled. DERMATOLOGIC: Warm and dry. No generalized rash. CENTRAL NERVOUS SYSTEM: Extremely lethargic RUE-PICC, RIJ/Temp HDC & RUE PICC Labs Lab Laboratory Tests Test 07/11/19 08:00 07/11/19 09:30 07/11/19 12:32 07/11/19 17:35 O2 Saturation 93 % (92-99) 77 % (92-99) 93 % (92-99) Arterial Blood pH 7.22 (7.35-7.45) 7.24 (7.35-7.45) 7.46 (7.35-7.45) Arterial Blood pCO2 at Patient Temp 71 mmHg (35-46) 72 mmHg (35-46) 40 mmHg (35-46) Arterial Blood pO2 at Patient Temp 75 mmHg (75-108) 45 mmHg (75-108) 63 mmHg (75-108) Arterial Blood HCO3 28 mmol/L (21-28) 30 mmol/L (21-28) 27 mmol/L (21-28) Arterial Blood Base Excess -1 mmol/L (-3-3) 1 mmol/L (-3-3) 3 mmol/L (-3-3) FiO2 45 bipap 90 +10peep Glucose (Fingerstick) 146 mg/dL (70-99) Test 07/11/19 18:26 07/11/19 21:17 07/12/19 00:05 07/12/19 05:15 Glucose (Fingerstick) 272 mg/dL (70-99) 222 mg/dL (70-99) Sodium Level 139 mmol/L (136-145) 137 mmol/L (136-145) Potassium Level 3.4 mmol/L (3.5-5.1) 3.3 mmol/L (3.5-5.1) Chloride Level 101 mmol/L (98-107) 101 mmol/L (98-107) Carbon Dioxide Level 32 mmol/L (21-32) 30 mmol/L (21-32) Anion Gap 6 (6-14) 6 (6-14) Blood Urea Nitrogen 28 mg/dL (7-20) 32 mg/dL (7-20) Creatinine 2.6 mg/dL (0.6-1.0) 2.2 mg/dL (0.6-1.0) Estimated GFR (Cockcroft-Gault) 19.6 23.7 Glucose Level 198 mg/dL (70-99) 239 mg/dL (70-99) Calcium Level 7.5 mg/dL (8.5-10.1) 7.5 mg/dL (8.5-10.1) Phosphorus Level 2.5 mg/dL (2.6-4.7) 2.2 mg/dL (2.6-4.7) Magnesium Level 2.2 mg/dL (1.8-2.4) 2.2 mg/dL (1.8-2.4) White Blood Count 20.5 x10^3/uL (4.0-11.0) Red Blood Count 2.52 x10^6/uL (3.50-5.40) Hemoglobin 8.3 g/dL (12.0-15.5) Hematocrit 24.4 % (36.0-47.0) Mean Corpuscular Volume 97 fL (79-100) Mean Corpuscular Hemoglobin 33 pg (25-35) Mean Corpuscular Hemoglobin Concent 34 g/dL (31-37) Red Cell Distribution Width 13.1 % (11.5-14.5) Platelet Count 242 x10^3/uL (140-400) Neutrophils (%) (Auto) 93 % (31-73) Lymphocytes (%) (Auto) 2 % (24-48) Monocytes (%) (Auto) 3 % (0-9) Eosinophils (%) (Auto) 2 % (0-3) Basophils (%) (Auto) 0 % (0-3) Neutrophils # (Auto) 19.1 x10^3/uL (1.8-7.7) Lymphocytes # (Auto) 0.4 x10^3/uL (1.0-4.8) Monocytes # (Auto) 0.6 x10^3/uL (0.0-1.1) Eosinophils # (Auto) 0.4 x10^3/uL (0.0-0.7) Basophils # (Auto) 0.1 x10^3/uL (0.0-0.2) Test 07/12/19 05:49 Glucose (Fingerstick) 217 mg/dL (70-99) Micro STAT CXR and KUB reviewed on 07/10 Microbiology 07/06/19 Blood Culture - Final, Complete NO GROWTH AFTER 5 DAYS Objective Assessment Fever - ? reactive with pancreatitis vs ID Acidosis Hypotension - levophed started this am Leukocytosis - better Acute pancreatitis, early developing necrosis Cholelithiasis Leucocytosis - up JUANA,Hyperkalemia, Metabolic acidosis on CRRT Acute hypoxic resp failure, intubated Hypocalcemia Prediabetes HTN Plan Plan of Care Check Blood cults and TSH CT ordered but on CRRT will need when stable Add Flagyl and Micafungin 07/10 cont merrem adjust with CRRT (07/11) d/w pharmacy and charge nurse,and Zyvox (07/07) f/u labs and cults No surgical plans at this time Electrolytes per primary Critically ill D/w nursing WILLY BARAKAT MD Jul 12, 2019 08:00
[2019-07-12] MEDS: PANTOPRAZOLE IV PUSH 40 MG VIAL. IVP SCH (08:49)
[2019-07-12] MEDS: MEROPENEM 500 MG in IV NORMAL SALINE 50ML 50 ML IV SCH ×4 (08:50→23:53)
--- NOTE | 2019-07-12 09:00 | PDOC ---
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 WANT AD SUPERVISOR 07/12/19 0900: SURGICAL PROGRESS NOTE Subjective vent support d/w nursing CRRT started pressor support Vital Signs Vital Signs Date Time Temp Pulse Resp B/P (MAP) Pulse Ox O2 Delivery O2 Flow Rate FiO2 07/12/19 08:04 Mechanical Ventilator 07/12/19 08:02 126 25 115/80 (92) 100 07/12/19 07:35 100.4 100.4 I&O Intake and Output 07/12/19 07:00 Intake Total 2914 ml Output Total 495 ml Balance 2419 ml IV Total 2914 ml Output Urine Total 95 ml Stool Total 200 ml Gastric Drainage Total 200 ml PATIENT HAS A ROSARIO: Yes General: No acute distress Abdomen: Soft, Other (ND) Skin: Other (mottling noted to extremities ) Labs Laboratory Tests Test 07/10/19 11:50 07/10/19 18:18 07/11/19 00:38 07/11/19 05:32 Glucose (Fingerstick) 216 mg/dL (70-99) 223 mg/dL (70-99) 260 mg/dL (70-99) O2 Saturation 99 % (92-99) Arterial Blood pH 7.20 (7.35-7.45) Arterial Blood pCO2 at Patient Temp 78 mmHg (35-46) Arterial Blood pO2 at Patient Temp 324 mmHg (75-108) Arterial Blood HCO3 30 mmol/L (21-28) Arterial Blood Base Excess 1 mmol/L (-3-3) FiO2 100 Test 07/11/19 05:50 07/11/19 05:56 07/11/19 08:00 07/11/19 09:30 White Blood Count 22.6 x10^3/uL (4.0-11.0) Red Blood Count 2.86 x10^6/uL (3.50-5.40) Hemoglobin 9.5 g/dL (12.0-15.5) Hematocrit 28.6 % (36.0-47.0) Mean Corpuscular Volume 100 fL (79-100) Mean Corpuscular Hemoglobin 33 pg (25-35) Mean Corpuscular Hemoglobin Concent 33 g/dL (31-37) Red Cell Distribution Width 14.0 % (11.5-14.5) Platelet Count 291 x10^3/uL (140-400) Neutrophils (%) (Auto) 91 % (31-73) Lymphocytes (%) (Auto) 3 % (24-48) Monocytes (%) (Auto) 5 % (0-9) Eosinophils (%) (Auto) 1 % (0-3) Basophils (%) (Auto) 0 % (0-3) Neutrophils # (Auto) 20.7 x10^3/uL (1.8-7.7) Lymphocytes # (Auto) 0.6 x10^3/uL (1.0-4.8) Monocytes # (Auto) 1.1 x10^3/uL (0.0-1.1) Eosinophils # (Auto) 0.2 x10^3/uL (0.0-0.7) Basophils # (Auto) 0.0 x10^3/uL (0.0-0.2) Sodium Level 138 mmol/L (136-145) Potassium Level 4.1 mmol/L (3.5-5.1) Chloride Level 99 mmol/L (98-107) Carbon Dioxide Level 31 mmol/L (21-32) Anion Gap 8 (6-14) Blood Urea Nitrogen 57 mg/dL (7-20) Creatinine 5.1 mg/dL (0.6-1.0) Estimated GFR (Cockcroft-Gault) 9.0 BUN/Creatinine Ratio 11 (6-20) Glucose Level 212 mg/dL (70-99) Calcium Level 7.3 mg/dL (8.5-10.1) Total Bilirubin 0.3 mg/dL (0.2-1.0) Aspartate Amino Transf (AST/SGOT) 37 U/L (15-37) Alanine Aminotransferase (ALT/SGPT) 21 U/L (14-59) Alkaline Phosphatase 163 U/L (46-116) Total Protein 4.8 g/dL (6.4-8.2) Albumin 1.4 g/dL (3.4-5.0) Albumin/Globulin Ratio 0.4 (1.0-1.7) Lipase 162 U/L (73-393) Glucose (Fingerstick) 155 mg/dL (70-99) O2 Saturation 93 % (92-99) 77 % (92-99) Arterial Blood pH 7.22 (7.35-7.45) 7.24 (7.35-7.45) Arterial Blood pCO2 at Patient Temp 71 mmHg (35-46) 72 mmHg (35-46) Arterial Blood pO2 at Patient Temp 75 mmHg (75-108) 45 mmHg (75-108) Arterial Blood HCO3 28 mmol/L (21-28) 30 mmol/L (21-28) Arterial Blood Base Excess -1 mmol/L (-3-3) 1 mmol/L (-3-3) FiO2 45 bipap Test 07/11/19 12:32 07/11/19 17:35 07/11/19 18:26 07/11/19 21:17 Glucose (Fingerstick) 146 mg/dL (70-99) 272 mg/dL (70-99) O2 Saturation 93 % (92-99) Arterial Blood pH 7.46 (7.35-7.45) Arterial Blood pCO2 at Patient Temp 40 mmHg (35-46) Arterial Blood pO2 at Patient Temp 63 mmHg (75-108) Arterial Blood HCO3 27 mmol/L (21-28) Arterial Blood Base Excess 3 mmol/L (-3-3) FiO2 90 +10peep Sodium Level 139 mmol/L (136-145) Potassium Level 3.4 mmol/L (3.5-5.1) Chloride Level 101 mmol/L (98-107) Carbon Dioxide Level 32 mmol/L (21-32) Anion Gap 6 (6-14) Blood Urea Nitrogen 28 mg/dL (7-20) Creatinine 2.6 mg/dL (0.6-1.0) Estimated GFR (Cockcroft-Gault) 19.6 Glucose Level 198 mg/dL (70-99) Calcium Level 7.5 mg/dL (8.5-10.1) Phosphorus Level 2.5 mg/dL (2.6-4.7) Magnesium Level 2.2 mg/dL (1.8-2.4) Test 07/12/19 00:05 07/12/19 05:15 07/12/19 05:49 Glucose (Fingerstick) 222 mg/dL (70-99) 217 mg/dL (70-99) White Blood Count 20.5 x10^3/uL (4.0-11.0) Red Blood Count 2.52 x10^6/uL (3.50-5.40) Hemoglobin 8.3 g/dL (12.0-15.5) Hematocrit 24.4 % (36.0-47.0) Mean Corpuscular Volume 97 fL (79-100) Mean Corpuscular Hemoglobin 33 pg (25-35) Mean Corpuscular Hemoglobin Concent 34 g/dL (31-37) Red Cell Distribution Width 13.1 % (11.5-14.5) Platelet Count 242 x10^3/uL (140-400) Neutrophils (%) (Auto) 93 % (31-73) Lymphocytes (%) (Auto) 2 % (24-48) Monocytes (%) (Auto) 3 % (0-9) Eosinophils (%) (Auto) 2 % (0-3) Basophils (%) (Auto) 0 % (0-3) Neutrophils # (Auto) 19.1 x10^3/uL (1.8-7.7) Lymphocytes # (Auto) 0.4 x10^3/uL (1.0-4.8) Monocytes # (Auto) 0.6 x10^3/uL (0.0-1.1) Eosinophils # (Auto) 0.4 x10^3/uL (0.0-0.7) Basophils # (Auto) 0.1 x10^3/uL (0.0-0.2) Sodium Level 137 mmol/L (136-145) Potassium Level 3.3 mmol/L (3.5-5.1) Chloride Level 101 mmol/L (98-107) Carbon Dioxide Level 30 mmol/L (21-32) Anion Gap 6 (6-14) Blood Urea Nitrogen 32 mg/dL (7-20) Creatinine 2.2 mg/dL (0.6-1.0) Estimated GFR (Cockcroft-Gault) 23.7 Glucose Level 239 mg/dL (70-99) Calcium Level 7.5 mg/dL (8.5-10.1) Phosphorus Level 2.2 mg/dL (2.6-4.7) Magnesium Level 2.2 mg/dL (1.8-2.4) Laboratory Tests Test 07/11/19 09:30 07/11/19 12:32 07/11/19 17:35 07/11/19 18:26 O2 Saturation 77 % (92-99) 93 % (92-99) Arterial Blood pH 7.24 (7.35-7.45) 7.46 (7.35-7.45) Arterial Blood pCO2 at Patient Temp 72 mmHg (35-46) 40 mmHg (35-46) Arterial Blood pO2 at Patient Temp 45 mmHg (75-108) 63 mmHg (75-108) Arterial Blood HCO3 30 mmol/L (21-28) 27 mmol/L (21-28) Arterial Blood Base Excess 1 mmol/L (-3-3) 3 mmol/L (-3-3) Glucose (Fingerstick) 146 mg/dL (70-99) 272 mg/dL (70-99) FiO2 90 +10peep Test 07/11/19 21:17 07/12/19 00:05 07/12/19 05:15 07/12/19 05:49 Sodium Level 139 mmol/L (136-145) 137 mmol/L (136-145) Potassium Level 3.4 mmol/L (3.5-5.1) 3.3 mmol/L (3.5-5.1) Chloride Level 101 mmol/L (98-107) 101 mmol/L (98-107) Carbon Dioxide Level 32 mmol/L (21-32) 30 mmol/L (21-32) Anion Gap 6 (6-14) 6 (6-14) Blood Urea Nitrogen 28 mg/dL (7-20) 32 mg/dL (7-20) Creatinine 2.6 mg/dL (0.6-1.0) 2.2 mg/dL (0.6-1.0) Estimated GFR (Cockcroft-Gault) 19.6 23.7 Glucose Level 198 mg/dL (70-99) 239 mg/dL (70-99) Calcium Level 7.5 mg/dL (8.5-10.1) 7.5 mg/dL (8.5-10.1) Phosphorus Level 2.5 mg/dL (2.6-4.7) 2.2 mg/dL (2.6-4.7) Magnesium Level 2.2 mg/dL (1.8-2.4) 2.2 mg/dL (1.8-2.4) Glucose (Fingerstick) 222 mg/dL (70-99) 217 mg/dL (70-99) White Blood Count 20.5 x10^3/uL (4.0-11.0) Red Blood Count 2.52 x10^6/uL (3.50-5.40) Hemoglobin 8.3 g/dL (12.0-15.5) Hematocrit 24.4 % (36.0-47.0) Mean Corpuscular Volume 97 fL (79-100) Mean Corpuscular Hemoglobin 33 pg (25-35) Mean Corpuscular Hemoglobin Concent 34 g/dL (31-37) Red Cell Distribution Width 13.1 % (11.5-14.5) Platelet Count 242 x10^3/uL (140-400) Neutrophils (%) (Auto) 93 % (31-73) Lymphocytes (%) (Auto) 2 % (24-48) Monocytes (%) (Auto) 3 % (0-9) Eosinophils (%) (Auto) 2 % (0-3) Basophils (%) (Auto) 0 % (0-3) Neutrophils # (Auto) 19.1 x10^3/uL (1.8-7.7) Lymphocytes # (Auto) 0.4 x10^3/uL (1.0-4.8) Monocytes # (Auto) 0.6 x10^3/uL (0.0-1.1) Eosinophils # (Auto) 0.4 x10^3/uL (0.0-0.7) Basophils # (Auto) 0.1 x10^3/uL (0.0-0.2) Problem List Problems Medical Problems: (1) Acute pancreatitis Status: Acute (2) Cholelithiasis Status: Acute Assessment/Plan severe pancreatitis supportive/critical care will have Dr Servin review DAVON SERVIN MD 07/12/19 1106: SURGICAL PROGRESS NOTE Assessment/Plan Pt seen and examined. Agree with Keith's note Pt intubated, some decrease in oxygen needs, on pressors abd distended, NTTP some min clinical improvement, but remains prohibitive surgical candidate. cont supportive care 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 APRN Jul 12, 2019 09:00 DAVON SERVIN MD Jul 12, 2019 11:06
--- NOTE | 2019-07-12 09:02 | RAD ---
CHEST AP ONLY History: Respiratory failure. Ventilation. Comparison: July 11, 2019 Findings: Low lung volumes. Small bilateral layering pleural effusions, unchanged. Multifocal pulmonary opacities, increased within the bilateral upper lungs. Unchanged heart size. Stable endotracheal tube, enteric tube, right IJ central line, right PICC and left subclavian line. No pneumothorax. Impression: 1. Multifocal pulmonary opacities, increased within the upper lungs. 2. Small bilateral layering pleural effusions, unchanged. Electronically signed by: Sukhdev Sadler DO (07/12/2019 8:59 AM) [id number]
[2019-07-12 09:10] LABS: BASE EXCESS ABG 1 mmol/L (-3-3); HCO3 ABG 24 mmol/L (21-28); PCO2 ABG 34 mmHg (35-46); PO2 ABG 161 mmHg (75-108); SAT O2 ABG 99 % (92-99)
--- NOTE | 2019-07-12 09:19 | PDOC ---
PULMONARY PROGRESS NOTES Subjective Patient intubated on 323 T-max 100.4 she is on 80% FiO2 10 of PEEP Vitals Vital Signs Date Time Temp Pulse Resp B/P (MAP) Pulse Ox O2 Delivery O2 Flow Rate FiO2 07/12/19 08:04 Mechanical Ventilator 07/12/19 08:02 126 25 115/80 (92) 100 07/12/19 07:35 100.4 100.4 HEENT: Other (nc at perrl bipap mask on neck no lad no thyromegaly) Lungs: Crackles, Other (dull at bases) Cardiovascular: S1, S2 Abdomen: Other (distended, diffuse pain no mass) Extremities: No Edema Skin: Warm Labs Laboratory Tests Test 07/10/19 11:50 07/10/19 18:18 07/11/19 00:38 07/11/19 05:32 Glucose (Fingerstick) 216 mg/dL (70-99) 223 mg/dL (70-99) 260 mg/dL (70-99) O2 Saturation 99 % (92-99) Arterial Blood pH 7.20 (7.35-7.45) Arterial Blood pCO2 at Patient Temp 78 mmHg (35-46) Arterial Blood pO2 at Patient Temp 324 mmHg (75-108) Arterial Blood HCO3 30 mmol/L (21-28) Arterial Blood Base Excess 1 mmol/L (-3-3) FiO2 100 Test 07/11/19 05:50 07/11/19 05:56 07/11/19 08:00 07/11/19 09:30 White Blood Count 22.6 x10^3/uL (4.0-11.0) Red Blood Count 2.86 x10^6/uL (3.50-5.40) Hemoglobin 9.5 g/dL (12.0-15.5) Hematocrit 28.6 % (36.0-47.0) Mean Corpuscular Volume 100 fL (79-100) Mean Corpuscular Hemoglobin 33 pg (25-35) Mean Corpuscular Hemoglobin Concent 33 g/dL (31-37) Red Cell Distribution Width 14.0 % (11.5-14.5) Platelet Count 291 x10^3/uL (140-400) Neutrophils (%) (Auto) 91 % (31-73) Lymphocytes (%) (Auto) 3 % (24-48) Monocytes (%) (Auto) 5 % (0-9) Eosinophils (%) (Auto) 1 % (0-3) Basophils (%) (Auto) 0 % (0-3) Neutrophils # (Auto) 20.7 x10^3/uL (1.8-7.7) Lymphocytes # (Auto) 0.6 x10^3/uL (1.0-4.8) Monocytes # (Auto) 1.1 x10^3/uL (0.0-1.1) Eosinophils # (Auto) 0.2 x10^3/uL (0.0-0.7) Basophils # (Auto) 0.0 x10^3/uL (0.0-0.2) Sodium Level 138 mmol/L (136-145) Potassium Level 4.1 mmol/L (3.5-5.1) Chloride Level 99 mmol/L (98-107) Carbon Dioxide Level 31 mmol/L (21-32) Anion Gap 8 (6-14) Blood Urea Nitrogen 57 mg/dL (7-20) Creatinine 5.1 mg/dL (0.6-1.0) Estimated GFR (Cockcroft-Gault) 9.0 BUN/Creatinine Ratio 11 (6-20) Glucose Level 212 mg/dL (70-99) Calcium Level 7.3 mg/dL (8.5-10.1) Total Bilirubin 0.3 mg/dL (0.2-1.0) Aspartate Amino Transf (AST/SGOT) 37 U/L (15-37) Alanine Aminotransferase (ALT/SGPT) 21 U/L (14-59) Alkaline Phosphatase 163 U/L (46-116) Total Protein 4.8 g/dL (6.4-8.2) Albumin 1.4 g/dL (3.4-5.0) Albumin/Globulin Ratio 0.4 (1.0-1.7) Lipase 162 U/L (73-393) Glucose (Fingerstick) 155 mg/dL (70-99) O2 Saturation 93 % (92-99) 77 % (92-99) Arterial Blood pH 7.22 (7.35-7.45) 7.24 (7.35-7.45) Arterial Blood pCO2 at Patient Temp 71 mmHg (35-46) 72 mmHg (35-46) Arterial Blood pO2 at Patient Temp 75 mmHg (75-108) 45 mmHg (75-108) Arterial Blood HCO3 28 mmol/L (21-28) 30 mmol/L (21-28) Arterial Blood Base Excess -1 mmol/L (-3-3) 1 mmol/L (-3-3) FiO2 45 bipap Test 07/11/19 12:32 07/11/19 17:35 07/11/19 18:26 07/11/19 21:17 Glucose (Fingerstick) 146 mg/dL (70-99) 272 mg/dL (70-99) O2 Saturation 93 % (92-99) Arterial Blood pH 7.46 (7.35-7.45) Arterial Blood pCO2 at Patient Temp 40 mmHg (35-46) Arterial Blood pO2 at Patient Temp 63 mmHg (75-108) Arterial Blood HCO3 27 mmol/L (21-28) Arterial Blood Base Excess 3 mmol/L (-3-3) FiO2 90 +10peep Sodium Level 139 mmol/L (136-145) Potassium Level 3.4 mmol/L (3.5-5.1) Chloride Level 101 mmol/L (98-107) Carbon Dioxide Level 32 mmol/L (21-32) Anion Gap 6 (6-14) Blood Urea Nitrogen 28 mg/dL (7-20) Creatinine 2.6 mg/dL (0.6-1.0) Estimated GFR (Cockcroft-Gault) 19.6 Glucose Level 198 mg/dL (70-99) Calcium Level 7.5 mg/dL (8.5-10.1) Phosphorus Level 2.5 mg/dL (2.6-4.7) Magnesium Level 2.2 mg/dL (1.8-2.4) Test 07/12/19 00:05 07/12/19 05:15 07/12/19 05:49 Glucose (Fingerstick) 222 mg/dL (70-99) 217 mg/dL (70-99) White Blood Count 20.5 x10^3/uL (4.0-11.0) Red Blood Count 2.52 x10^6/uL (3.50-5.40) Hemoglobin 8.3 g/dL (12.0-15.5) Hematocrit 24.4 % (36.0-47.0) Mean Corpuscular Volume 97 fL (79-100) Mean Corpuscular Hemoglobin 33 pg (25-35) Mean Corpuscular Hemoglobin Concent 34 g/dL (31-37) Red Cell Distribution Width 13.1 % (11.5-14.5) Platelet Count 242 x10^3/uL (140-400) Neutrophils (%) (Auto) 93 % (31-73) Lymphocytes (%) (Auto) 2 % (24-48) Monocytes (%) (Auto) 3 % (0-9) Eosinophils (%) (Auto) 2 % (0-3) Basophils (%) (Auto) 0 % (0-3) Neutrophils # (Auto) 19.1 x10^3/uL (1.8-7.7) Lymphocytes # (Auto) 0.4 x10^3/uL (1.0-4.8) Monocytes # (Auto) 0.6 x10^3/uL (0.0-1.1) Eosinophils # (Auto) 0.4 x10^3/uL (0.0-0.7) Basophils # (Auto) 0.1 x10^3/uL (0.0-0.2) Sodium Level 137 mmol/L (136-145) Potassium Level 3.3 mmol/L (3.5-5.1) Chloride Level 101 mmol/L (98-107) Carbon Dioxide Level 30 mmol/L (21-32) Anion Gap 6 (6-14) Blood Urea Nitrogen 32 mg/dL (7-20) Creatinine 2.2 mg/dL (0.6-1.0) Estimated GFR (Cockcroft-Gault) 23.7 Glucose Level 239 mg/dL (70-99) Calcium Level 7.5 mg/dL (8.5-10.1) Phosphorus Level 2.2 mg/dL (2.6-4.7) Magnesium Level 2.2 mg/dL (1.8-2.4) Thyroid Stimulating Hormone (TSH) 1.091 uIU/mL (0.358-3.74) Laboratory Tests Test 07/11/19 09:30 07/11/19 12:32 07/11/19 17:35 07/11/19 18:26 O2 Saturation 77 % (92-99) 93 % (92-99) Arterial Blood pH 7.24 (7.35-7.45) 7.46 (7.35-7.45) Arterial Blood pCO2 at Patient Temp 72 mmHg (35-46) 40 mmHg (35-46) Arterial Blood pO2 at Patient Temp 45 mmHg (75-108) 63 mmHg (75-108) Arterial Blood HCO3 30 mmol/L (21-28) 27 mmol/L (21-28) Arterial Blood Base Excess 1 mmol/L (-3-3) 3 mmol/L (-3-3) Glucose (Fingerstick) 146 mg/dL (70-99) 272 mg/dL (70-99) FiO2 90 +10peep Test 07/11/19 21:17 07/12/19 00:05 07/12/19 05:15 07/12/19 05:49 Sodium Level 139 mmol/L (136-145) 137 mmol/L (136-145) Potassium Level 3.4 mmol/L (3.5-5.1) 3.3 mmol/L (3.5-5.1) Chloride Level 101 mmol/L (98-107) 101 mmol/L (98-107) Carbon Dioxide Level 32 mmol/L (21-32) 30 mmol/L (21-32) Anion Gap 6 (6-14) 6 (6-14) Blood Urea Nitrogen 28 mg/dL (7-20) 32 mg/dL (7-20) Creatinine 2.6 mg/dL (0.6-1.0) 2.2 mg/dL (0.6-1.0) Estimated GFR (Cockcroft-Gault) 19.6 23.7 Glucose Level 198 mg/dL (70-99) 239 mg/dL (70-99) Calcium Level 7.5 mg/dL (8.5-10.1) 7.5 mg/dL (8.5-10.1) Phosphorus Level 2.5 mg/dL (2.6-4.7) 2.2 mg/dL (2.6-4.7) Magnesium Level 2.2 mg/dL (1.8-2.4) 2.2 mg/dL (1.8-2.4) Glucose (Fingerstick) 222 mg/dL (70-99) 217 mg/dL (70-99) White Blood Count 20.5 x10^3/uL (4.0-11.0) Red Blood Count 2.52 x10^6/uL (3.50-5.40) Hemoglobin 8.3 g/dL (12.0-15.5) Hematocrit 24.4 % (36.0-47.0) Mean Corpuscular Volume 97 fL (79-100) Mean Corpuscular Hemoglobin 33 pg (25-35) Mean Corpuscular Hemoglobin Concent 34 g/dL (31-37) Red Cell Distribution Width 13.1 % (11.5-14.5) Platelet Count 242 x10^3/uL (140-400) Neutrophils (%) (Auto) 93 % (31-73) Lymphocytes (%) (Auto) 2 % (24-48) Monocytes (%) (Auto) 3 % (0-9) Eosinophils (%) (Auto) 2 % (0-3) Basophils (%) (Auto) 0 % (0-3) Neutrophils # (Auto) 19.1 x10^3/uL (1.8-7.7) Lymphocytes # (Auto) 0.4 x10^3/uL (1.0-4.8) Monocytes # (Auto) 0.6 x10^3/uL (0.0-1.1) Eosinophils # (Auto) 0.4 x10^3/uL (0.0-0.7) Basophils # (Auto) 0.1 x10^3/uL (0.0-0.2) Thyroid Stimulating Hormone (TSH) 1.091 uIU/mL (0.358-3.74) Medications Active Scripts Medications Dose Route/Sig Max Daily Dose Days Date Category Bisoprolol Fumarate 5 Mg Tablet 10 Mg PO DAILY 07/04/19 Reported Impression . IMPRESSION: 1. Acute hypoxemic respiratory failure secondary to acute pancreatitis, sepsis, abdominal distention, and pneumonia. 2. Gallstone pancreatitis. WITH NECROSIS 3. Severe metabolic acidosis. 4. Acute kidney injury. ON HD 5. Acute gallstone pancreatitis. 6. Hypoalbuminemia. 7. Hypocalcemia. 8. Leukocytosis 9. Chronic anemia Plan . ABG noted Replace potassium Patient currently on C [employer] Repeat CT once stable Antibiotics per ID Follow surgery input Follow nephrology input Nutritional support with TPN Prognosis is HARMEET BEE MD Jul 12, 2019 09:19
[2019-07-12 09:21] LABS: FIO2 ABG 90
[2019-07-12] MEDS: MICAFUNGIN 100 MG in IV DEXTROSE 5% 100ML 100 ML IV SCH (09:33)
--- NOTE | 2019-07-12 10:05 | PDOC ---
SUBJECTIVE ROS Intubated this am, On pressors OBJECTIVE Vital Signs Vital Signs Date Time Temp Pulse Resp B/P (MAP) Pulse Ox O2 Delivery O2 Flow Rate FiO2 07/12/19 09:49 100 Ventilator 07/12/19 08:59 129 25 109/74 (86) 07/12/19 07:53 6.0 07/12/19 07:35 100.4 100.4 I & 0 Intake and Output 07/12/19 07:00 Intake Total 2914 ml Output Total 495 ml Balance 2419 ml IV Total 2914 ml Output Urine Total 95 ml Stool Total 200 ml Gastric Drainage Total 200 ml PHYSICAL EXAM Physical Exam GENERAL: Intubated on MV HEENT: Mild icterus, Intubated NECK: Supple. LUNGS: Decreased breath sounds at the bases. HEART: S1, S2, tachycardia, 110s, ABDOMEN: Distended, + BS. Rectal tube in place : Lind + EXTREMITIES: Trace edema, no cyanosis - mottled. DERMATOLOGIC: Warm and dry. No generalized rash. CENTRAL NERVOUS SYSTEM: Intubated on MV RUE-PICC, RIJ/Temp HDC & LIJ DIAGNOSIS/ASSESSMENT Assessment & Plan JUANA - ATN, Anuric, requiring HD intubated on 07/10 , currently on pressors Switched to CRRT 07/10 after HD in am , seen on CRRT, tolerating well Discussed with RN and Boy HyperKalemia- in the past, Currently Mild hypokalemia - replace as needed Acidosis - Bicarb Normal- on higher side , Dced IV bicarb on 07/10 Currently on TPN with bicarb HypoCalcemia- Corrected Ca normal HypOPhos -Replace Kphos IV , alia LEhead of advertising 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 GI, ID, and general surgery following Calculus of gallbladder with acute cholecystitis without obstruction - with secondary pancreatitis. Lap ronel is indicated, will need to await pancreatitis resolution HTN - Hypotensive currently and on pressors Sepsis - with acute pancreatitis as end organ dysfunction, sign of infection, zyvox, merrem Hypoxia with respiratory failure - intubated COMMENT/RELEVANT DATA Meds Current Medications Medications (Trade) Dose Ordered Sig/Yvon Start Time Stop Time Status Last Admin Dose Admin Acetaminophen (Tylenol) 650 mg PRN Q6HRS PRN 07/09/19 03:36 3/21/20 16:36 650 MG Albumin Human 200 ml @ 200 mls/hr 1X ONCE 07/11/19 07:30 07/11/19 08:29 DC 07/11/19 08:51 200 MLS/HR Albuterol Sulfate (Ventolin Neb Soln) 2.5 mg 1X ONCE 07/05/19 22:30 07/05/19 22:31 DC 07/06/19 00:56 2.5 MG Artificial Tears (Artificial Tears) 1 drop PRN Q1HR PRN 07/11/19 08:15 Atenolol (Tenormin) 100 mg DAILY 07/05/19 09:00 07/04/19 20:08 DC Benzocaine (Hurricaine One) 1 spray 1X ONCE 07/08/19 14:30 07/08/19 14:31 DC 07/08/19 16:38 1 SPRAY Calcium Carbonate/ Glycine (Tums) 500 mg PRN AFTMEALHC PRN 07/06/19 17:45 Calcium Chloride 1000 mg/Sodium Chloride 110 ml @ 220 mls/hr 1X ONCE 07/05/19 22:30 07/05/19 22:59 DC 07/05/19 22:11 220 MLS/HR Calcium Chloride 3000 mg/Sodium Chloride 1,030 ml @ 50 mls/hr [id number] 07/07/19 08:00 07/09/19 15:23 DC 07/09/19 02:17 50 MLS/HR Calcium Gluconate (Calcium Gluconate) 2,000 mg 1X ONCE 07/07/19 02:15 07/07/19 02:16 DC 07/07/19 02:19 2,000 MG Calcium Gluconate 1000 mg/Sodium Chloride 110 ml @ 220 mls/hr 1X ONCE 07/06/19 03:30 07/06/19 03:59 DC 07/06/19 03:21 220 MLS/HR Calcium Gluconate 2000 mg/Sodium Chloride 120 ml @ 220 mls/hr 1X ONCE 07/06/19 07:30 07/06/19 08:02 DC 07/06/19 09:05 220 MLS/HR Dextrose (Dextrose 50%-Water Syringe) 12.5 gm PRN Q15MIN PRN 07/04/19 09:30 Digoxin (Lanoxin) 125 mcg 1X ONCE 07/07/19 18:00 07/07/19 18:01 DC 07/07/19 17:10 125 MCG Diphenhydramine HCl (Benadryl) 25 mg 1X PRN PRN 07/11/19 07:30 07/12/19 07:29 DC Etomidate (Amidate) 8 mg 1X ONCE 07/11/19 08:30 07/11/19 08:31 DC 07/11/19 08:33 8 MG Fentanyl Citrate 30 ml @ 0 mls/hr CONT PRN 07/11/19 08:15 07/12/19 07:23 2.5 MLS/HR Fentanyl Citrate (Fentanyl 2ml Vial) 100 mcg STK-MED ONCE 07/04/19 03:18 07/04/19 03:18 DC Furosemide (Lasix) 40 mg 1X ONCE 07/05/19 22:30 07/05/19 22:31 DC 07/05/19 22:12 40 MG Heparin Sodium (Porcine) (Heparin Sodium) 5,000 unit Q8HRS 07/11/19 15:00 07/12/19 05:55 5,000 UNIT Hydromorphone HCl (Dilaudid) 1 mg PRN Q3HRS PRN 07/05/19 12:00 07/11/19 05:13 1 MG Info (CONTRAST GIVEN -- Rx MONITORING) 1 each PRN DAILY PRN 07/05/19 17:00 07/07/19 16:59 DC Info (PHARMACY MONITORING -- do not chart) 1 each PRN DAILY PRN 07/11/19 07:30 Info (Tpn Per Pharmacy) 1 each PRN DAILY PRN 07/06/19 12:30 UNV Insulin Human Lispro (HumaLOG) 0-9 UNITS Q6HRS 07/04/19 09:30 07/12/19 05:56 5 UNITS Insulin Human Regular (HumuLIN R VIAL) 5 unit 1X ONCE 07/05/19 22:30 07/05/19 22:31 DC 07/05/19 22:14 5 UNIT Iohexol (Omnipaque 300 Mg/ml) 60 ml 1X ONCE 07/05/19 17:00 07/05/19 17:01 DC 07/05/19 17:20 60 ML Iohexol (Omnipaque 350 Mg/ml) 90 ml 1X ONCE 07/04/19 03:30 07/04/19 03:31 DC 07/04/19 03:25 90 ML Ketorolac Tromethamine (Toradol 30mg Vial) 30 mg 1X ONCE 07/04/19 03:00 07/04/19 03:01 DC 07/04/19 02:54 30 MG Lidocaine HCl (Buffered Lidocaine 1%) 6 ml 1X ONCE 07/06/19 10:15 07/06/19 10:16 DC 07/06/19 10:26 4 ML Lidocaine HCl (Glydo (Lidocaine) Jelly) 1 ramu 1X ONCE 07/08/19 14:30 07/08/19 14:31 DC 07/08/19 16:38 1 RAMU Lidocaine HCl (Xylocaine-Mpf 1% 2ml Vial) 2 ml STK-MED ONCE 07/06/19 08:47 07/06/19 08:47 DC Linezolid/Dextrose 300 ml @ 300 mls/hr Q12HR 07/08/19 20:00 07/11/19 21:01 300 MLS/HR Lorazepam (Ativan Inj) 1 mg PRN Q4HRS PRN 07/07/19 09:00 07/11/19 00:34 1 MG Magnesium Sulfate 100 ml @ 25 mls/hr 1X ONCE 07/07/19 13:00 07/07/19 16:59 DC 07/07/19 12:48 25 MLS/HR Meropenem 1 gm/ Sodium Chloride 100 ml @ 200 mls/hr Q8HRS 07/05/19 20:00 07/06/19 08:48 DC 07/06/19 05:45 200 MLS/HR Meropenem 500 mg/ Sodium Chloride 50 ml @ 100 mls/hr Q6HRS 07/12/19 09:00 07/12/19 08:50 100 MLS/HR Metoprolol Tartrate (Lopressor Vial) 5 mg Q6HRS 07/05/19 10:15 07/11/19 18:28 5 MG Metronidazole 100 ml @ 100 mls/hr Q6HRS 07/11/19 08:30 07/12/19 05:44 100 MLS/HR Micafungin Sodium 100 mg/Dextrose 100 ml @ 100 mls/hr Q24H 07/11/19 09:00 07/12/19 09:33 100 MLS/HR Midazolam HCl (Versed) 5 mg 1X ONCE 07/11/19 08:30 07/11/19 08:31 DC Midazolam HCl 50 mg/Sodium Chloride 50 ml @ 0 mls/hr CONT PRN 07/11/19 08:15 07/11/19 23:48 7 MLS/HR Morphine Sulfate (Morphine Sulfate) 2 mg PRN Q2HR PRN 07/04/19 05:00 07/05/19 14:15 DC 07/05/19 12:26 2 MG Norepinephrine Bitartrate 8 mg/ Dextrose 258 ml @ 17.299 mls/ hr CONT PRN 07/05/19 15:30 07/11/19 06:51 17.299 MLS/HR Ondansetron HCl (Zofran) 4 mg PRN Q4HRS PRN 07/04/19 09:30 07/09/19 16:15 4 MG Pantoprazole Sodium (PROTONIX VIAL for IV PUSH) 40 mg DAILYAC 07/04/19 11:30 07/12/19 08:49 40 MG Piperacillin Sod/ Tazobactam Sod 4.5 gm/Sodium Chloride 100 ml @ 200 mls/hr 1X ONCE 07/04/19 06:00 07/04/19 06:29 DC 07/04/19 05:44 200 MLS/HR Potassium Chloride 15 meq/ Bicarbonate Dialysis Soln w/ out KCl 5,007.5 ml @ 1,000 mls/ hr Q5H1M 07/11/19 12:00 07/12/19 00:13 1,000 MLS/HR Potassium Chloride/Water 100 ml @ 100 mls/hr 1X ONCE 07/08/19 14:00 07/08/19 14:59 DC 07/08/19 14:09 100 MLS/HR Prochlorperazine Edisylate (Compazine) 10 mg PRN Q6HRS PRN 07/04/19 17:45 07/05/19 00:42 10 MG Propofol 0 ml @ As Directed STK-MED ONCE 07/11/19 07:53 07/11/19 07:53 DC Sodium Bicarbonate 50 meq/Sodium Chloride 1,050 ml @ 75 mls/hr Q14H 07/06/19 07:30 07/11/19 10:28 DC 07/10/19 21:10 75 MLS/HR Sodium Chloride (Normal Saline Flush) 10 ml 1X PRN PRN 07/09/19 08:00 07/10/19 07:59 DC Sodium Chloride 90 meq/Calcium Gluconate 10 meq/ Multivitamins 10 ml/Chromium/ Copper/Manganese/ Seleni/Zn 0.5 ml/ Total Parenteral Nutrition/Amino Acids/Dextrose/ Fat Emulsion Intravenous 1,512 ml @ 63 mls/hr TPN CONT 07/06/19 22:00 07/07/19 21:59 DC 07/06/19 22:06 63 MLS/HR Sodium Chloride 90 meq/Calcium Gluconate 10 meq/ Multivitamins 10 ml/Chromium/ Copper/Manganese/ Seleni/Zn 1 ml/ Total Parenteral Nutrition/Amino Acids/Dextrose/ Fat Emulsion Intravenous 55.005 ml @ 2.292 mls/hr TPN CONT 07/06/19 22:00 07/06/19 12:33 DC Sodium Chloride 90 meq/Magnesium Sulfate 10 meq/ Calcium Gluconate 20 meq/ Multivitamins 10 ml/Chromium/ Copper/Manganese/ Seleni/Zn 0.5 ml/ Total Parenteral Nutrition/Amino Acids/Dextrose/ Fat Emulsion Intravenous 1,512 ml @ 63 mls/hr TPN CONT 07/07/19 22:00 07/08/19 21:59 DC 07/07/19 22:25 63 MLS/HR Sodium Chloride 90 meq/Potassium Chloride 15 meq/ Potassium Phosphate 10 mmol/ Magnesium Sulfate 10 meq/Calcium Gluconate 20 meq/ Multivitamins 10 ml/Chromium/ Copper/Manganese/ Seleni/Zn 0.5 ml/ Total Parenteral Nutrition/Amino Acids/Dextrose/ Fat Emulsion Intravenous 1,400 ml @ 58.333 mls/ hr TPN CONT 07/11/19 22:00 07/12/19 21:59 07/11/19 21:42 58.333 MLS/HR Sodium Chloride 90 meq/Potassium Chloride 15 meq/ Potassium Phosphate 15 mmol/ Magnesium Sulfate 10 meq/Calcium Gluconate 20 meq/ Multivitamins 10 ml/Chromium/ Copper/Manganese/ Seleni/Zn 0.5 ml/ Total Parenteral Nutrition/Amino Acids/Dextrose/ Fat Emulsion Intravenous 1,200 ml @ 50 mls/hr TPN CONT 07/10/19 22:00 07/10/19 14:17 DC Succinylcholine Chloride (Anectine) 120 mg 1X ONCE 07/11/19 08:30 07/11/19 08:31 DC 07/11/19 08:34 120 MG Lab Laboratory Tests Test 07/11/19 12:32 07/11/19 17:35 07/11/19 18:26 07/11/19 21:17 Glucose (Fingerstick) 146 mg/dL (70-99) 272 mg/dL (70-99) O2 Saturation 93 % (92-99) Arterial Blood pH 7.46 (7.35-7.45) Arterial Blood pCO2 at Patient Temp 40 mmHg (35-46) Arterial Blood pO2 at Patient Temp 63 mmHg (75-108) Arterial Blood HCO3 27 mmol/L (21-28) Arterial Blood Base Excess 3 mmol/L (-3-3) FiO2 90 +10peep Sodium Level 139 mmol/L (136-145) Potassium Level 3.4 mmol/L (3.5-5.1) Chloride Level 101 mmol/L (98-107) Carbon Dioxide Level 32 mmol/L (21-32) Anion Gap 6 (6-14) Blood Urea Nitrogen 28 mg/dL (7-20) Creatinine 2.6 mg/dL (0.6-1.0) Estimated GFR (Cockcroft-Gault) 19.6 Glucose Level 198 mg/dL (70-99) Calcium Level 7.5 mg/dL (8.5-10.1) Phosphorus Level 2.5 mg/dL (2.6-4.7) Magnesium Level 2.2 mg/dL (1.8-2.4) Test 07/12/19 00:05 07/12/19 05:15 07/12/19 05:49 07/12/19 08:05 Glucose (Fingerstick) 222 mg/dL (70-99) 217 mg/dL (70-99) White Blood Count 20.5 x10^3/uL (4.0-11.0) Red Blood Count 2.52 x10^6/uL (3.50-5.40) Hemoglobin 8.3 g/dL (12.0-15.5) Hematocrit 24.4 % (36.0-47.0) Mean Corpuscular Volume 97 fL (79-100) Mean Corpuscular Hemoglobin 33 pg (25-35) Mean Corpuscular Hemoglobin Concent 34 g/dL (31-37) Red Cell Distribution Width 13.1 % (11.5-14.5) Platelet Count 242 x10^3/uL (140-400) Neutrophils (%) (Auto) 93 % (31-73) Lymphocytes (%) (Auto) 2 % (24-48) Monocytes (%) (Auto) 3 % (0-9) Eosinophils (%) (Auto) 2 % (0-3) Basophils (%) (Auto) 0 % (0-3) Neutrophils # (Auto) 19.1 x10^3/uL (1.8-7.7) Lymphocytes # (Auto) 0.4 x10^3/uL (1.0-4.8) Monocytes # (Auto) 0.6 x10^3/uL (0.0-1.1) Eosinophils # (Auto) 0.4 x10^3/uL (0.0-0.7) Basophils # (Auto) 0.1 x10^3/uL (0.0-0.2) Sodium Level 137 mmol/L (136-145) Potassium Level 3.3 mmol/L (3.5-5.1) Chloride Level 101 mmol/L (98-107) Carbon Dioxide Level 30 mmol/L (21-32) Anion Gap 6 (6-14) Blood Urea Nitrogen 32 mg/dL (7-20) Creatinine 2.2 mg/dL (0.6-1.0) Estimated GFR (Cockcroft-Gault) 23.7 Glucose Level 239 mg/dL (70-99) Calcium Level 7.5 mg/dL (8.5-10.1) Phosphorus Level 2.2 mg/dL (2.6-4.7) Magnesium Level 2.2 mg/dL (1.8-2.4) Thyroid Stimulating Hormone (TSH) 1.091 uIU/mL (0.358-3.74) O2 Saturation 99 % (92-99) Arterial Blood pH 7.47 (7.35-7.45) Arterial Blood pCO2 at Patient Temp 34 mmHg (35-46) Arterial Blood pO2 at Patient Temp 161 mmHg (75-108) Arterial Blood HCO3 24 mmol/L (21-28) Arterial Blood Base Excess 1 mmol/L (-3-3) FiO2 90 Results All relevant outside records, renal labs, imaging studies, telemetry/EKG's were reviewed. Other CxR-- 1. Multifocal pulmonary opacities, increased within the upper lungs. 2. Small bilateral layering pleural effusions, unchanged. VERENA KENT MD Jul 12, 2019 10:05
[2019-07-12] MEDS ORDERED: NORMAL SALINE IV ONE (10:15)
[2019-07-12] MEDS ORDERED: POTASSIUM PHOSPHATE DIBASIC IV ONE (10:15)
[2019-07-12] MEDS: ACETAMINOPHEN 650 MG SUPP.RECT. PR PRN (10:37)
--- NOTE | 2019-07-12 10:51 | PDOC ---
Objective: Objective: Reviewed chart, d/w nurse - notes bilious OG output since yesterday. TPN, IV PPI, unable to do CT yet. Vital Signs: Vital Signs Date Time Temp Pulse Resp B/P (MAP) Pulse Ox O2 Delivery O2 Flow Rate FiO2 07/12/19 10:37 116/51 (72) 07/12/19 10:20 102.7 120 25 100 Ventilator 102.7 07/12/19 07:53 6.0 Labs: Laboratory Tests Test 07/11/19 12:32 07/11/19 17:35 07/11/19 18:26 07/11/19 21:17 Glucose (Fingerstick) 146 mg/dL 272 mg/dL O2 Saturation 93 % Arterial Blood pH 7.46 Arterial Blood pCO2 at Patient Temp 40 mmHg Arterial Blood pO2 at Patient Temp 63 mmHg Arterial Blood HCO3 27 mmol/L Arterial Blood Base Excess 3 mmol/L FiO2 90 +10peep Sodium Level 139 mmol/L Potassium Level 3.4 mmol/L Chloride Level 101 mmol/L Carbon Dioxide Level 32 mmol/L Anion Gap 6 Blood Urea Nitrogen 28 mg/dL Creatinine 2.6 mg/dL Estimated GFR (Cockcroft-Gault) 19.6 Glucose Level 198 mg/dL Calcium Level 7.5 mg/dL Phosphorus Level 2.5 mg/dL Magnesium Level 2.2 mg/dL Test 07/12/19 00:05 07/12/19 05:15 07/12/19 05:49 07/12/19 08:05 Glucose (Fingerstick) 222 mg/dL 217 mg/dL White Blood Count 20.5 x10^3/uL Red Blood Count 2.52 x10^6/uL Hemoglobin 8.3 g/dL Hematocrit 24.4 % Mean Corpuscular Volume 97 fL Mean Corpuscular Hemoglobin 33 pg Mean Corpuscular Hemoglobin Concent 34 g/dL Red Cell Distribution Width 13.1 % Platelet Count 242 x10^3/uL Neutrophils (%) (Auto) 93 % Lymphocytes (%) (Auto) 2 % Monocytes (%) (Auto) 3 % Eosinophils (%) (Auto) 2 % Basophils (%) (Auto) 0 % Neutrophils # (Auto) 19.1 x10^3/uL Lymphocytes # (Auto) 0.4 x10^3/uL Monocytes # (Auto) 0.6 x10^3/uL Eosinophils # (Auto) 0.4 x10^3/uL Basophils # (Auto) 0.1 x10^3/uL Sodium Level 137 mmol/L Potassium Level 3.3 mmol/L Chloride Level 101 mmol/L Carbon Dioxide Level 30 mmol/L Anion Gap 6 Blood Urea Nitrogen 32 mg/dL Creatinine 2.2 mg/dL Estimated GFR (Cockcroft-Gault) 23.7 Glucose Level 239 mg/dL Calcium Level 7.5 mg/dL Phosphorus Level 2.2 mg/dL Magnesium Level 2.2 mg/dL Thyroid Stimulating Hormone (TSH) 1.091 uIU/mL O2 Saturation 99 % Arterial Blood pH 7.47 Arterial Blood pCO2 at Patient Temp 34 mmHg Arterial Blood pO2 at Patient Temp 161 mmHg Arterial Blood HCO3 24 mmol/L Arterial Blood Base Excess 1 mmol/L FiO2 90 Imaging: CXR 07/11 Impression: 1. Multifocal pulmonary opacities, increased within the upper lungs. 2. Small bilateral layering pleural effusions, unchanged. PE: GEN: intubated on CRRT LUNGS: vent, diminished anteriorly HEART: tachycardic ABD: some distention EXTREMITY/SKIN: some mottling NEURO/PSYCH: sedated A/P: Gallstone pancreatitis, fever, MOSF - intubated on CRRT and pressors -- Will review w/ Dr. Weber. Hemodynamically unstable?: Yes Is patient in severe pain?: Yes Is NPO status required?: Yes CYNDEE FALCON Jul 12, 2019 10:51
[2019-07-12] MEDS: MIDAZOLAM HCL 50 MG in IV NORMAL SALINE 50ML 50 ML IV PRN ×3 (10:58→20:57)
[2019-07-12] MEDS: POTASSIUM CHLORIDE 20MEQ 100 ML IV SCH ×2 (11:09→12:12)
--- NOTE | 2019-07-12 12:40 | PDOC ---
[facility] PROGRESS NOTE Chief Complaint Chief Complaint Respiratory failure requiring intubation this morning Severe Acute pancreatitis Acute kidney failure now requiring dialysis Salpingo--itis Gallstones (Calculus of gallbladder with acute cholecystitis without obstruction) HTN Leukocytosis Hypoxia Uterine fibroid Hypoxia with respiratory failure Intractable pain Intractable nausea History of Present Illness History of Present Illness [id number] Patient seen and examined in the ICU She remains extremely critically ill On IV fentanyl IV Versed IV Doxy On the vent Assist-control/25/450/70% She is critically ill Discussed with RN Chart reviewed Patient is currently on CRRT as well [id number] Patient seen and examined in the ICU She had to be intubated this morning On assist-control 25/450/100% with 10 of PEEP and only satting 87% She is extremely critically ill I'm not sure if she will survive Chart reviewed Discussed with RN Ms Diaz is a 48yo F w/ PMHx HTN, prediabetes who presents the emergency room complaints of abdominal pain. Patient described off and on 3 days. She states is constant, described as a squeezing sensation in a band-like distribution. + nausea, vomiting. She denies any fever or diarrhea. Patient denies any abdominal surgical procedures. She states is worse with movements, car ride. Pain initially was upper abdomen however now pretty much generalized. Last bowel movement was 07/03/2019. Nothing makes her pain better. Patient denies any shortness of breath. She does state the pain moves into her chest. Denies any headache or visual changes. Lipase 09915, AST 401, ALT 249, Bilirubin 1.4. CT abdomen confirms pancreatic inflammation, peripancreatic fluid and inflammatory changes around the pancreas consistent with pancreatitis. Cholelithiasis and 1.4cm uterine fibroid as well as possible left salpingitis. Admitted for further care GI, General surgery, ID, Pulm consulted. 07/04: Overnight per report no urine output. Added dilaudid for pain, PICC placed per IR. Renal US negative.Seen bedside in ICU, given 2L additional NSS and albumin infusion. Still hypotensive, started on levophed. Repeat CT abdomen with necrosis. Updated her fiancee 07/05: Sats are only 87% on nasal cannula oxygen. Dialysis catheter per nephrology 07/06: She is now on BiPAP appears more ill, now on dialysis 07/07: Seen on BiPAP. Her mother and another family member are present and seemed to be good support for her. Currently on dialysis. Appears critically ill 07/08: Overnight Tmax 101.7 , still on BiPAP FiO2 40%, still on low dose Levophed gtt, TPN initiated. On dialysis Overnight still febrile. Dialysis today. She wakes up and responds to pain. No CP. Vitals/I&O Vitals/I&O: Vital Signs Date Time Temp Pulse Resp B/P (MAP) Pulse Ox O2 Delivery O2 Flow Rate FiO2 07/12/19 12:07 Mechanical Ventilator 07/12/19 12:05 101 25 97/50 (66) 100 07/12/19 11:33 98.2 98.2 07/12/19 07:53 6.0 I & O 07/11/19 07/11/19 07/12/19 15:00 23:00 07:00 Intake Total 50 ml 1698 ml 1166 ml Output Total 35 ml 35 ml 425 ml Balance 15 ml 1663 ml 741 ml Physical Exam Physical Exam: GENERAL:Intubated/sedted HEENT: Mild icterus. Oral mucosa very dry. NECK: Supple. LUNGS: Decreased breath sounds at the bases. HEART: S1, S2, tachycardia, 120s, regular ABDOMEN: Distended, + BS. Rectal tube in place : Lind EXTREMITIES: Trace edema, no cyanosis - mottled. DERMATOLOGIC: Warm and dry. No generalized rash. CENTRAL NERVOUS SYSTEM: Extremely lethargic RUE-PICC, RIJ/Temp HDC & RUE PICC General: No acute distress Heart: Other (increased rate) Lungs: Crackles, Other (dull at bases) Abdomen: Soft, Other (ND) Extremities: No edema, Other (SOME CLUBBING ) Skin: Other (mottling noted to extremities ) Labs Labs: Laboratory Tests Test 07/11/19 17:35 07/11/19 18:26 07/11/19 21:17 07/12/19 00:05 O2 Saturation 93 % (92-99) Arterial Blood pH 7.46 (7.35-7.45) Arterial Blood pCO2 at Patient Temp 40 mmHg (35-46) Arterial Blood pO2 at Patient Temp 63 mmHg (75-108) Arterial Blood HCO3 27 mmol/L (21-28) Arterial Blood Base Excess 3 mmol/L (-3-3) FiO2 90 +10peep Glucose (Fingerstick) 272 mg/dL (70-99) 222 mg/dL (70-99) Sodium Level 139 mmol/L (136-145) Potassium Level 3.4 mmol/L (3.5-5.1) Chloride Level 101 mmol/L (98-107) Carbon Dioxide Level 32 mmol/L (21-32) Anion Gap 6 (6-14) Blood Urea Nitrogen 28 mg/dL (7-20) Creatinine 2.6 mg/dL (0.6-1.0) Estimated GFR (Cockcroft-Gault) 19.6 Glucose Level 198 mg/dL (70-99) Calcium Level 7.5 mg/dL (8.5-10.1) Phosphorus Level 2.5 mg/dL (2.6-4.7) Magnesium Level 2.2 mg/dL (1.8-2.4) Test 07/12/19 05:15 07/12/19 05:49 07/12/19 08:05 White Blood Count 20.5 x10^3/uL (4.0-11.0) Red Blood Count 2.52 x10^6/uL (3.50-5.40) Hemoglobin 8.3 g/dL (12.0-15.5) Hematocrit 24.4 % (36.0-47.0) Mean Corpuscular Volume 97 fL (79-100) Mean Corpuscular Hemoglobin 33 pg (25-35) Mean Corpuscular Hemoglobin Concent 34 g/dL (31-37) Red Cell Distribution Width 13.1 % (11.5-14.5) Platelet Count 242 x10^3/uL (140-400) Neutrophils (%) (Auto) 93 % (31-73) Lymphocytes (%) (Auto) 2 % (24-48) Monocytes (%) (Auto) 3 % (0-9) Eosinophils (%) (Auto) 2 % (0-3) Basophils (%) (Auto) 0 % (0-3) Neutrophils # (Auto) 19.1 x10^3/uL (1.8-7.7) Lymphocytes # (Auto) 0.4 x10^3/uL (1.0-4.8) Monocytes # (Auto) 0.6 x10^3/uL (0.0-1.1) Eosinophils # (Auto) 0.4 x10^3/uL (0.0-0.7) Basophils # (Auto) 0.1 x10^3/uL (0.0-0.2) Sodium Level 137 mmol/L (136-145) Potassium Level 3.3 mmol/L (3.5-5.1) Chloride Level 101 mmol/L (98-107) Carbon Dioxide Level 30 mmol/L (21-32) Anion Gap 6 (6-14) Blood Urea Nitrogen 32 mg/dL (7-20) Creatinine 2.2 mg/dL (0.6-1.0) Estimated GFR (Cockcroft-Gault) 23.7 Glucose Level 239 mg/dL (70-99) Calcium Level 7.5 mg/dL (8.5-10.1) Phosphorus Level 2.2 mg/dL (2.6-4.7) Magnesium Level 2.2 mg/dL (1.8-2.4) Thyroid Stimulating Hormone (TSH) 1.091 uIU/mL (0.358-3.74) Glucose (Fingerstick) 217 mg/dL (70-99) O2 Saturation 99 % (92-99) Arterial Blood pH 7.47 (7.35-7.45) Arterial Blood pCO2 at Patient Temp 34 mmHg (35-46) Arterial Blood pO2 at Patient Temp 161 mmHg (75-108) Arterial Blood HCO3 24 mmol/L (21-28) Arterial Blood Base Excess 1 mmol/L (-3-3) FiO2 90 Assessment and Plan Assessmemt and Plan Problems Medical Problems: (1) Acute pancreatitis Status: Acute (2) Cholelithiasis Status: Acute Respiratory failure requiring intubation this morning Severe Acute pancreatitis Acute kidney failure now requiring dialysis Salpingo--itis Gallstones (Calculus of gallbladder with acute cholecystitis without obstruction) HTN Leukocytosis Hypoxia Uterine fibroid Hypoxia with respiratory failure Intractable pain Intractable nausea Plan CRRT Mechanical ventilation Hemodialysis BiPAP ICU monitoring Trend labs especially white count and lipase levels We have consulted GI and general surgery IV antibiotics IV fluids MS narcotics When necessary anti-medics Home meds if possible DVT prophylaxis Full code She is critically ill Total time 31 minutes Comment Review of Relevant I have reviewed the following items kolby (where applicable) has been applied. Medications: Current Medications Medications (Trade) Dose Ordered Sig/Yvon Route PRN Reason Start Time Stop Time Status Last Admin Dose Admin Sodium Chloride 90 meq/Potassium Chloride 15 meq/ Potassium Phosphate 10 mmol/ Magnesium Sulfate 10 meq/Calcium Gluconate 20 meq/ Multivitamins 10 ml/Chromium/ Copper/Manganese/ Seleni/Zn 0.5 ml/ Total Parenteral Nutrition/Amino Acids/Dextrose/ Fat Emulsion Intravenous 1,400 ml @ 58.333 mls/ hr TPN CONT IV 07/11/19 22:00 07/12/19 21:59 07/11/19 21:42 Heparin Sodium (Porcine) (Heparin Sodium) 5,000 unit Q8HRS SQ 07/11/19 15:00 07/12/19 05:55 Meropenem 500 mg/ Sodium Chloride 50 ml @ 100 mls/hr Q6HRS IV 07/12/19 09:00 07/12/19 08:50 Potassium Phosphate 20 mmol/ Sodium Chloride 106.6667 ml @ 51.667 m... 1X ONCE IV 07/12/19 10:15 07/12/19 12:18 DC 07/12/19 11:22 Acetaminophen (Tylenol Supp) 650 mg PRN Q6HRS PRN MS MILD PAIN / TEMP 07/12/19 10:30 07/12/19 10:37 Potassium Chloride/Water 100 ml @ 100 mls/hr Q1H IV 07/12/19 11:00 07/12/19 12:59 07/12/19 12:12 Hemodynamically unstable?: Yes Is patient in severe pain?: Yes Is NPO status required?: Yes BEBO KIRBY III, DO Jul 12, 2019 12:40
[2019-07-12] MEDS: TPN PER PHARMACY MC PRN ×2 (13:36→14:03)
--- NOTE | 2019-07-12 14:07 | NUR ---
Pharmacy TPN Dosing Note S: SCOTT AVILA is a 48 year old F Currently receiving Central Continuous TPN started 07/06/19 B:Pertinent PMH: Necrotizing pancreatitis Height: 5 feet, 8 inches Weight: 108.0 kg Current diet: NPO LABS: Sodium: 137 Potassium: 3.3 Chloride: 101 Calcium: 7.5 Corrected Calcium: 9.58 Magnesium: 2.2 CO2: 31 SCr: 5.1 Glucose: 155 Albumin: 1.4 AST: 56 ALT: 45 TPN FORMULA: TPN TYPE: Central Continuous AMINO ACIDS: 125 gm DEXTROSE: 195 gm LIPIDS: 40 gm SODIUM CHLORIDE: 90 mEq SODIUM ACETATE: -- mEq SODIUM PHOSPHATE: -- mmol POTASSIUM CHLORIDE: 15 mEq POTASSIUM ACETATE: -- mEq POTASSIUM PHOSPHATE: 15 mmol MAGNESIUM: 10 mEq CALCIUM: 15 mEq INSULIN: -- units MULTIPLE VITAMIN: 10 ml TRACE ELEMENTS: 0.5 ml(s) TPN PLAN: Decrease calcium in order to increase kpo4. Pt received 20mmol kpo4 bolus. R: Continue TPN as ordered Will monitor electrolytes, glucose, and tolerance to TPN. HITESH GARZA, [facility], 07/12/19 [id number]
[2019-07-12] MEDS: POTASSIUM CHLORIDE 20 MEQ in DIALYSIS SOLUTION BGK 0/2.5 5,000 ML IV SCH ×8 (15:06→20:56)
[2019-07-12 17:13] LABS: CALCIUM 7.2 mg/dL (8.5-10.1); CREATININE 2.1 mg/dL (0.6-1.0); MAGNESIUM 2.3 mg/dL (1.8-2.4); PHOSPHORUS 2.5 mg/dL (2.6-4.7); POTASSIUM 3.7 mmol/L (3.5-5.1)
[2019-07-12] MEDS ORDERED: AMINO ACID IV SCH ×10 (22:00)
[2019-07-12] MEDS ORDERED: [UNRECOGNIZED DRUG - OTHER] IV SCH ×10 (22:00)
[2019-07-12] MEDS ORDERED: TOTAL PARENTERAL NUTRITION IV SCH ×10 (22:00)
[2019-07-12] MEDS ORDERED: DEXTROSE 70% IV SCH ×10 (22:00)
[2019-07-12] MEDS: NOREPINEPHRINE VIAL 8 MG in IV DEXTROSE 5% 250 ML IV PRN (23:55)
[2019-07-13] VITALS (24 sets, daily range): BP systolic 48–127; BP diastolic 6–80
[2019-07-13] MEDS: INSULIN LISPRO 300 UNITS/3 ML VIAL. SQ SCH ×3 (00:06→17:47)
[2019-07-13] MEDS: POTASSIUM CHLORIDE 20 MEQ in DIALYSIS SOLUTION BGK 0/2.5 5,000 ML IV SCH ×23 (02:33→22:37)
[2019-07-13] MEDS: MIDAZOLAM HCL 50 MG in IV NORMAL SALINE 50ML 50 ML IV PRN ×3 (02:51→20:43)
[2019-07-13] MEDS: METOPROLOL TARTRATE 5 MG/5 ML VIAL. IVP SCH ×5 (02:54→23:31)
[2019-07-13 05:23] LABS: CALCIUM 7.7 mg/dL (8.5-10.1); CREATININE 2.2 mg/dL (0.6-1.0); GFR 23.7; MAGNESIUM 2.3 mg/dL (1.8-2.4); PHOSPHORUS 2.4 mg/dL (2.6-4.7); POTASSIUM 3.7 mmol/L (3.5-5.1)
[2019-07-13] MEDS: MEROPENEM 500 MG in IV NORMAL SALINE 50ML 50 ML IV SCH (06:00)
[2019-07-13 06:33] LABS: BASO % 0 % (0-3); EOS # 0.3 x10^3/uL (0.0-0.7); EOS % 1 % (0-3); HEMATOCRIT 23.6 % (36.0-47.0); HEMOGLOBIN 7.8 g/dL (12.0-15.5); LYMPH % 4 % (24-48); MEAN CORPUSCULAR HEMOGLOBIN 33 pg (25-35); MEAN CORPUSCULAR HGB CONC 33 g/dL (31-37); MEAN CORPUSCULAR VOLUME 98 fL (79-100); MONO # 1.2 x10^3/uL (0.0-1.1); MONO % 5 % (0-9); NEUT # 23.8 x10^3/uL (1.8-7.7); NEUT % 90 % (31-73); PLATELET COUNT 292 x10^3/uL (140-400); RED BLOOD COUNT 2.41 x10^6/uL (3.50-5.40); RED CELL DISTRIBUTION WIDTH 13.4 % (11.5-14.5); WHITE BLOOD COUNT 26.3 x10^3/uL (4.0-11.0)
[2019-07-13 06:48] LABS: ALBUMIN 1.4 g/dL (3.4-5.0); ALBUMIN/GLOBULIN RATIO 0.5 (1.0-1.7); CALCIUM 7.5 mg/dL (8.5-10.1); CREATININE 2.7 mg/dL (0.6-1.0); GFR 18.7; PHOSPHORUS 2.3 mg/dL (2.6-4.7); POTASSIUM 3.6 mmol/L (3.5-5.1); TOTAL BILIRUBIN 0.4 mg/dL (0.2-1.0); TOTAL PROTEIN 4.3 g/dL (6.4-8.2)
--- NOTE | 2019-07-13 07:31 | PDOC ---
Infectious Disease Note Subjective Subjective Fever Tmax 101 Intubated FiO2 40% PEEP 10 On Levophed gtt this am - dose varies currently about 8 mics TPN ROS ROS unable to obtain Vital Sign Vital Signs Vital Signs Date Time Temp Pulse Resp B/P (MAP) Pulse Ox O2 Delivery O2 Flow Rate FiO2 07/13/19 05:00 101.0 118 26 93/50 (64) 100 Ventilator 101.0 07/13/19 02:50 6.0 Physical Exam PHYSICAL EXAM GENERAL:Intubated/sedated HEENT: Mild icterus. Oral mucosa very dry. NECK: Supple. LUNGS: Decreased breath sounds at the bases. HEART: S1, S2, tachycardia, 120s, regular ABDOMEN: Distended, + BS. Rectal tube in place - soft : Lind EXTREMITIES: Trace edema, no cyanosis - less mottled but toes appear a little ischemic. DERMATOLOGIC: Warm and dry. No generalized rash. CENTRAL NERVOUS SYSTEM: Intubated IV: RIJ Temp HDC & RUE PICC - Left IJ Labs Lab Laboratory Tests Test 07/12/19 08:05 07/12/19 12:53 07/12/19 16:30 07/13/19 00:02 O2 Saturation 99 % (92-99) Arterial Blood pH 7.47 (7.35-7.45) Arterial Blood pCO2 at Patient Temp 34 mmHg (35-46) Arterial Blood pO2 at Patient Temp 161 mmHg (75-108) Arterial Blood HCO3 24 mmol/L (21-28) Arterial Blood Base Excess 1 mmol/L (-3-3) FiO2 90 Glucose (Fingerstick) 225 mg/dL (70-99) 274 mg/dL (70-99) Sodium Level 139 mmol/L (136-145) Potassium Level 3.7 mmol/L (3.5-5.1) Chloride Level 103 mmol/L (98-107) Carbon Dioxide Level 29 mmol/L (21-32) Anion Gap 7 (6-14) Blood Urea Nitrogen 36 mg/dL (7-20) Creatinine 2.1 mg/dL (0.6-1.0) Estimated GFR (Cockcroft-Gault) 25.0 Glucose Level 280 mg/dL (70-99) Calcium Level 7.2 mg/dL (8.5-10.1) Phosphorus Level 2.5 mg/dL (2.6-4.7) Magnesium Level 2.3 mg/dL (1.8-2.4) Test 07/13/19 00:55 07/13/19 06:00 Sodium Level 139 mmol/L (136-145) 137 mmol/L (136-145) Potassium Level 3.7 mmol/L (3.5-5.1) 3.6 mmol/L (3.5-5.1) Chloride Level 103 mmol/L (98-107) 103 mmol/L (98-107) Carbon Dioxide Level 23 mmol/L (21-32) 26 mmol/L (21-32) Anion Gap 13 (6-14) 8 (6-14) Blood Urea Nitrogen 42 mg/dL (7-20) 50 mg/dL (7-20) Creatinine 2.2 mg/dL (0.6-1.0) 2.7 mg/dL (0.6-1.0) Estimated GFR (Cockcroft-Gault) 23.7 18.7 Glucose Level 274 mg/dL (70-99) 270 mg/dL (70-99) Calcium Level 7.7 mg/dL (8.5-10.1) 7.5 mg/dL (8.5-10.1) Phosphorus Level 2.4 mg/dL (2.6-4.7) 2.3 mg/dL (2.6-4.7) Magnesium Level 2.3 mg/dL (1.8-2.4) 2.3 mg/dL (1.8-2.4) White Blood Count 26.3 x10^3/uL (4.0-11.0) Red Blood Count 2.41 x10^6/uL (3.50-5.40) Hemoglobin 7.8 g/dL (12.0-15.5) Hematocrit 23.6 % (36.0-47.0) Mean Corpuscular Volume 98 fL (79-100) Mean Corpuscular Hemoglobin 33 pg (25-35) Mean Corpuscular Hemoglobin Concent 33 g/dL (31-37) Red Cell Distribution Width 13.4 % (11.5-14.5) Platelet Count 292 x10^3/uL (140-400) Neutrophils (%) (Auto) 90 % (31-73) Lymphocytes (%) (Auto) 4 % (24-48) Monocytes (%) (Auto) 5 % (0-9) Eosinophils (%) (Auto) 1 % (0-3) Basophils (%) (Auto) 0 % (0-3) Neutrophils # (Auto) 23.8 x10^3/uL (1.8-7.7) Lymphocytes # (Auto) 1.0 x10^3/uL (1.0-4.8) Monocytes # (Auto) 1.2 x10^3/uL (0.0-1.1) Eosinophils # (Auto) 0.3 x10^3/uL (0.0-0.7) Basophils # (Auto) 0.0 x10^3/uL (0.0-0.2) BUN/Creatinine Ratio 19 (6-20) Total Bilirubin 0.4 mg/dL (0.2-1.0) Aspartate Amino Transf (AST/SGOT) 27 U/L (15-37) Alanine Aminotransferase (ALT/SGPT) 12 U/L (14-59) Alkaline Phosphatase 82 U/L (46-116) Total Protein 4.3 g/dL (6.4-8.2) Albumin 1.4 g/dL (3.4-5.0) Albumin/Globulin Ratio 0.5 (1.0-1.7) Micro STAT CXR and KUB reviewed on 07/10 Microbiology 07/06/19 Blood Culture - Final, Complete NO GROWTH AFTER 5 DAYS Objective Assessment Fever - ? reactive with pancreatitis vs ID - C-diff neg Hypotension - levophed started am 07/10 Leukocytosis - worse today ? developing peripheral ischemia Acute pancreatitis, early developing necrosis Cholelithiasis JUANA,Hyperkalemia, Metabolic acidosis on CRRT Acute hypoxic resp failure, intubated Hypocalcemia Prediabetes HTN Plan Plan of Care Check Lactic acid F/u Blood cults 07/11 CT ordered but on CRRT will need when stable Add Flagyl and Micafungin 07/10 Will D/c Meropenem with fever and Leukocytosis Dose Cefepime and Dapto Cont Zyvox (07/07) f/u labs and cults No surgical plans at this time Electrolytes per primary Critically ill D/w nursing WILLY BARAKAT MD Jul 13, 2019 07:30
--- NOTE | 2019-07-13 08:31 | RAD ---
EXAM: CHEST 1 VIEW History: Ventilation COMPARISON: 07/12/2019 TECHNIQUE: Single portable radiograph of the chest FINDINGS: Low lung volumes and technique accentuates heart size and pulmonary vascularity. Moderate prominent bilateral interstitial lung markings likely congestive changes. The ET tube, feeding tube, right-sided PICC line, left-sided internal jugular line, right-sided dialysis catheter are identified. Probable small left pleural effusion. IMPRESSION: 1. Lines and tubes as described. 2. Moderate congestive changes with small left pleural effusion unchanged. Electronically signed by: Priyank Delgado MD (07/13/2019 8:28 AM) [id number]
[2019-07-13] MEDS: DAPTOmycin (GENERIC) IVPB 500 MG in IV NORMAL SALINE 50ML 50 ML IV SCH (08:45)
--- NOTE | 2019-07-13 08:54 | PDOC ---
PULMONARY PROGRESS NOTES Subjective Patient intubated on 323 T-max 100.4 she is on 80% FiO2 10 of PEEP Vitals Vital Signs Date Time Temp Pulse Resp B/P (MAP) Pulse Ox O2 Delivery O2 Flow Rate FiO2 07/13/19 08:00 99 Ventilator 07/13/19 06:00 117 26 86/47 (60) 07/13/19 05:00 101.0 101.0 07/13/19 02:50 6.0 HEENT: Other (nc at perrl bipap mask on neck no lad no thyromegaly) Lungs: Crackles, Other (dull at bases) Cardiovascular: S1, S2 Abdomen: Other (distended, diffuse pain no mass) Extremities: No Edema Skin: Warm Labs Laboratory Tests Test 07/11/19 09:30 07/11/19 12:32 07/11/19 15:40 07/11/19 17:35 O2 Saturation 77 % (92-99) 93 % (92-99) Arterial Blood pH 7.24 (7.35-7.45) 7.46 (7.35-7.45) Arterial Blood pCO2 at Patient Temp 72 mmHg (35-46) 40 mmHg (35-46) Arterial Blood pO2 at Patient Temp 45 mmHg (75-108) 63 mmHg (75-108) Arterial Blood HCO3 30 mmol/L (21-28) 27 mmol/L (21-28) Arterial Blood Base Excess 1 mmol/L (-3-3) 3 mmol/L (-3-3) Glucose (Fingerstick) 146 mg/dL (70-99) Clostridium difficile Toxin B Gene Negative (Negative) FiO2 90 +10peep Test 07/11/19 18:26 07/11/19 21:17 07/12/19 00:05 07/12/19 05:15 Glucose (Fingerstick) 272 mg/dL (70-99) 222 mg/dL (70-99) Sodium Level 139 mmol/L (136-145) 137 mmol/L (136-145) Potassium Level 3.4 mmol/L (3.5-5.1) 3.3 mmol/L (3.5-5.1) Chloride Level 101 mmol/L (98-107) 101 mmol/L (98-107) Carbon Dioxide Level 32 mmol/L (21-32) 30 mmol/L (21-32) Anion Gap 6 (6-14) 6 (6-14) Blood Urea Nitrogen 28 mg/dL (7-20) 32 mg/dL (7-20) Creatinine 2.6 mg/dL (0.6-1.0) 2.2 mg/dL (0.6-1.0) Estimated GFR (Cockcroft-Gault) 19.6 23.7 Glucose Level 198 mg/dL (70-99) 239 mg/dL (70-99) Calcium Level 7.5 mg/dL (8.5-10.1) 7.5 mg/dL (8.5-10.1) Phosphorus Level 2.5 mg/dL (2.6-4.7) 2.2 mg/dL (2.6-4.7) Magnesium Level 2.2 mg/dL (1.8-2.4) 2.2 mg/dL (1.8-2.4) White Blood Count 20.5 x10^3/uL (4.0-11.0) Red Blood Count 2.52 x10^6/uL (3.50-5.40) Hemoglobin 8.3 g/dL (12.0-15.5) Hematocrit 24.4 % (36.0-47.0) Mean Corpuscular Volume 97 fL (79-100) Mean Corpuscular Hemoglobin 33 pg (25-35) Mean Corpuscular Hemoglobin Concent 34 g/dL (31-37) Red Cell Distribution Width 13.1 % (11.5-14.5) Platelet Count 242 x10^3/uL (140-400) Neutrophils (%) (Auto) 93 % (31-73) Lymphocytes (%) (Auto) 2 % (24-48) Monocytes (%) (Auto) 3 % (0-9) Eosinophils (%) (Auto) 2 % (0-3) Basophils (%) (Auto) 0 % (0-3) Neutrophils # (Auto) 19.1 x10^3/uL (1.8-7.7) Lymphocytes # (Auto) 0.4 x10^3/uL (1.0-4.8) Monocytes # (Auto) 0.6 x10^3/uL (0.0-1.1) Eosinophils # (Auto) 0.4 x10^3/uL (0.0-0.7) Basophils # (Auto) 0.1 x10^3/uL (0.0-0.2) Thyroid Stimulating Hormone (TSH) 1.091 uIU/mL (0.358-3.74) Test 07/12/19 05:49 07/12/19 08:05 07/12/19 12:53 07/12/19 16:30 Glucose (Fingerstick) 217 mg/dL (70-99) 225 mg/dL (70-99) O2 Saturation 99 % (92-99) Arterial Blood pH 7.47 (7.35-7.45) Arterial Blood pCO2 at Patient Temp 34 mmHg (35-46) Arterial Blood pO2 at Patient Temp 161 mmHg (75-108) Arterial Blood HCO3 24 mmol/L (21-28) Arterial Blood Base Excess 1 mmol/L (-3-3) FiO2 90 Sodium Level 139 mmol/L (136-145) Potassium Level 3.7 mmol/L (3.5-5.1) Chloride Level 103 mmol/L (98-107) Carbon Dioxide Level 29 mmol/L (21-32) Anion Gap 7 (6-14) Blood Urea Nitrogen 36 mg/dL (7-20) Creatinine 2.1 mg/dL (0.6-1.0) Estimated GFR (Cockcroft-Gault) 25.0 Glucose Level 280 mg/dL (70-99) Calcium Level 7.2 mg/dL (8.5-10.1) Phosphorus Level 2.5 mg/dL (2.6-4.7) Magnesium Level 2.3 mg/dL (1.8-2.4) Test 07/13/19 00:02 07/13/19 00:55 07/13/19 06:00 07/13/19 08:00 Glucose (Fingerstick) 274 mg/dL (70-99) Sodium Level 139 mmol/L (136-145) 137 mmol/L (136-145) Potassium Level 3.7 mmol/L (3.5-5.1) 3.6 mmol/L (3.5-5.1) Chloride Level 103 mmol/L (98-107) 103 mmol/L (98-107) Carbon Dioxide Level 23 mmol/L (21-32) 26 mmol/L (21-32) Anion Gap 13 (6-14) 8 (6-14) Blood Urea Nitrogen 42 mg/dL (7-20) 50 mg/dL (7-20) Creatinine 2.2 mg/dL (0.6-1.0) 2.7 mg/dL (0.6-1.0) Estimated GFR (Cockcroft-Gault) 23.7 18.7 Glucose Level 274 mg/dL (70-99) 270 mg/dL (70-99) Calcium Level 7.7 mg/dL (8.5-10.1) 7.5 mg/dL (8.5-10.1) Phosphorus Level 2.4 mg/dL (2.6-4.7) 2.3 mg/dL (2.6-4.7) Magnesium Level 2.3 mg/dL (1.8-2.4) 2.3 mg/dL (1.8-2.4) White Blood Count 26.3 x10^3/uL (4.0-11.0) Red Blood Count 2.41 x10^6/uL (3.50-5.40) Hemoglobin 7.8 g/dL (12.0-15.5) Hematocrit 23.6 % (36.0-47.0) Mean Corpuscular Volume 98 fL (79-100) Mean Corpuscular Hemoglobin 33 pg (25-35) Mean Corpuscular Hemoglobin Concent 33 g/dL (31-37) Red Cell Distribution Width 13.4 % (11.5-14.5) Platelet Count 292 x10^3/uL (140-400) Neutrophils (%) (Auto) 90 % (31-73) Lymphocytes (%) (Auto) 4 % (24-48) Monocytes (%) (Auto) 5 % (0-9) Eosinophils (%) (Auto) 1 % (0-3) Basophils (%) (Auto) 0 % (0-3) Neutrophils # (Auto) 23.8 x10^3/uL (1.8-7.7) Lymphocytes # (Auto) 1.0 x10^3/uL (1.0-4.8) Monocytes # (Auto) 1.2 x10^3/uL (0.0-1.1) Eosinophils # (Auto) 0.3 x10^3/uL (0.0-0.7) Basophils # (Auto) 0.0 x10^3/uL (0.0-0.2) BUN/Creatinine Ratio 19 (6-20) Total Bilirubin 0.4 mg/dL (0.2-1.0) Aspartate Amino Transf (AST/SGOT) 27 U/L (15-37) Alanine Aminotransferase (ALT/SGPT) 12 U/L (14-59) Alkaline Phosphatase 82 U/L (46-116) Total Protein 4.3 g/dL (6.4-8.2) Albumin 1.4 g/dL (3.4-5.0) Albumin/Globulin Ratio 0.5 (1.0-1.7) Lactic Acid Level 1.4 mmol/L (0.4-2.0) Laboratory Tests Test 07/12/19 12:53 07/12/19 16:30 07/13/19 00:02 07/13/19 00:55 Glucose (Fingerstick) 225 mg/dL (70-99) 274 mg/dL (70-99) Sodium Level 139 mmol/L (136-145) 139 mmol/L (136-145) Potassium Level 3.7 mmol/L (3.5-5.1) 3.7 mmol/L (3.5-5.1) Chloride Level 103 mmol/L (98-107) 103 mmol/L (98-107) Carbon Dioxide Level 29 mmol/L (21-32) 23 mmol/L (21-32) Anion Gap 7 (6-14) 13 (6-14) Blood Urea Nitrogen 36 mg/dL (7-20) 42 mg/dL (7-20) Creatinine 2.1 mg/dL (0.6-1.0) 2.2 mg/dL (0.6-1.0) Estimated GFR (Cockcroft-Gault) 25.0 23.7 Glucose Level 280 mg/dL (70-99) 274 mg/dL (70-99) Calcium Level 7.2 mg/dL (8.5-10.1) 7.7 mg/dL (8.5-10.1) Phosphorus Level 2.5 mg/dL (2.6-4.7) 2.4 mg/dL (2.6-4.7) Magnesium Level 2.3 mg/dL (1.8-2.4) 2.3 mg/dL (1.8-2.4) Test 07/13/19 06:00 07/13/19 08:00 White Blood Count 26.3 x10^3/uL (4.0-11.0) Red Blood Count 2.41 x10^6/uL (3.50-5.40) Hemoglobin 7.8 g/dL (12.0-15.5) Hematocrit 23.6 % (36.0-47.0) Mean Corpuscular Volume 98 fL (79-100) Mean Corpuscular Hemoglobin 33 pg (25-35) Mean Corpuscular Hemoglobin Concent 33 g/dL (31-37) Red Cell Distribution Width 13.4 % (11.5-14.5) Platelet Count 292 x10^3/uL (140-400) Neutrophils (%) (Auto) 90 % (31-73) Lymphocytes (%) (Auto) 4 % (24-48) Monocytes (%) (Auto) 5 % (0-9) Eosinophils (%) (Auto) 1 % (0-3) Basophils (%) (Auto) 0 % (0-3) Neutrophils # (Auto) 23.8 x10^3/uL (1.8-7.7) Lymphocytes # (Auto) 1.0 x10^3/uL (1.0-4.8) Monocytes # (Auto) 1.2 x10^3/uL (0.0-1.1) Eosinophils # (Auto) 0.3 x10^3/uL (0.0-0.7) Basophils # (Auto) 0.0 x10^3/uL (0.0-0.2) Sodium Level 137 mmol/L (136-145) Potassium Level 3.6 mmol/L (3.5-5.1) Chloride Level 103 mmol/L (98-107) Carbon Dioxide Level 26 mmol/L (21-32) Anion Gap 8 (6-14) Blood Urea Nitrogen 50 mg/dL (7-20) Creatinine 2.7 mg/dL (0.6-1.0) Estimated GFR (Cockcroft-Gault) 18.7 BUN/Creatinine Ratio 19 (6-20) Glucose Level 270 mg/dL (70-99) Calcium Level 7.5 mg/dL (8.5-10.1) Phosphorus Level 2.3 mg/dL (2.6-4.7) Magnesium Level 2.3 mg/dL (1.8-2.4) Total Bilirubin 0.4 mg/dL (0.2-1.0) Aspartate Amino Transf (AST/SGOT) 27 U/L (15-37) Alanine Aminotransferase (ALT/SGPT) 12 U/L (14-59) Alkaline Phosphatase 82 U/L (46-116) Total Protein 4.3 g/dL (6.4-8.2) Albumin 1.4 g/dL (3.4-5.0) Albumin/Globulin Ratio 0.5 (1.0-1.7) Lactic Acid Level 1.4 mmol/L (0.4-2.0) Medications Active Scripts Medications Dose Route/Sig Max Daily Dose Days Date Category Bisoprolol Fumarate 5 Mg Tablet 10 Mg PO DAILY 07/04/19 Reported Impression . IMPRESSION: 1. Acute hypoxemic respiratory failure secondary to acute pancreatitis, sepsis, abdominal distention, and pneumonia. 2. Gallstone pancreatitis. WITH NECROSIS 3. Severe metabolic acidosis. 4. Acute kidney injury. ON HD 5. Acute gallstone pancreatitis. 6. Hypoalbuminemia. 7. Hypocalcemia. 8. Leukocytosis 9. Chronic anemia Plan . ABG noted Replace potassium Patient currently on C [employer] Repeat CT once stable Antibiotics per ID Follow surgery input Follow nephrology input Nutritional support with TPN Prognosis is HARMEET BEE MD Jul 13, 2019 08:54
[2019-07-13 08:56] LABS: % BANDS 19 % (0-9); % LYMPHS 3 % (24-48); % METAS 3 % (0-0); % MONOS 1 % (0-10); % MYELOS 1 % (0-0); % SEGS 73 % (35-66); PLT ESTIMATE ADEQUATE (ADEQUATE); TOXIC GRANULATION SLIGHT
--- NOTE | 2019-07-13 08:56 | PDOC ---
[facility] PROGRESS NOTE Chief Complaint Chief Complaint Respiratory failure requiring intubation this morning Severe Acute pancreatitis Acute kidney failure now requiring dialysis Salpingo--itis Gallstones (Calculus of gallbladder with acute cholecystitis without obstruction) HTN Leukocytosis Hypoxia Uterine fibroid Hypoxia with respiratory failure Intractable pain Intractable nausea History of Present Illness History of Present Illness [id number] Patient seen and examined in the ICU She is still requiring CRRT On the vent with assist control but her FiO2 is down to 40% from yesterday Slightly better but still very critically ill Discussed with RN Chart reviewed [id number] Patient seen and examined in the ICU She remains extremely critically ill On IV fentanyl IV Versed IV Doxy On the vent Assist-control/25/450/70% She is critically ill Discussed with RN Chart reviewed Patient is currently on CRRT as well [id number] Patient seen and examined in the ICU She had to be intubated this morning On assist-control 25/450/100% with 10 of PEEP and only satting 87% She is extremely critically ill I'm not sure if she will survive Chart reviewed Discussed with RN Ms Diaz is a 48yo F w/ PMHx HTN, prediabetes who presents the emergency room complaints of abdominal pain. Patient described off and on 3 days. She states is constant, described as a squeezing sensation in a band-like distribution. + nausea, vomiting. She denies any fever or diarrhea. Patient denies any abdominal surgical procedures. She states is worse with movements, car ride. Pain initially was upper abdomen however now pretty much generalized. Last bowel movement was 07/03/2019. Nothing makes her pain better. Patient denies any shortness of breath. She does state the pain moves into her chest. Denies any headache or visual changes. Lipase 33110, AST 401, ALT 249, Bilirubin 1.4. CT abdomen confirms pancreatic inflammation, peripancreatic fluid and inflammatory changes around the pancreas consistent with pancreatitis. Cholelithiasis and 1.4cm uterine fibroid as well as possible left salpingitis. Admitted for further care GI, General surgery, ID, Pulm consulted. 07/04: Overnight per report no urine output. Added dilaudid for pain, PICC placed per IR. Renal US negative.Seen bedside in ICU, given 2L additional NSS and albumin infusion. Still hypotensive, started on levophed. Repeat CT abdomen with necrosis. Updated her fiancee 07/05: Sats are only 87% on nasal cannula oxygen. Dialysis catheter per nephrology 07/06: She is now on BiPAP appears more ill, now on dialysis 07/07: Seen on BiPAP. Her mother and another family member are present and seemed to be good support for her. Currently on dialysis. Appears critically ill 07/08: Overnight Tmax 101.7 , still on BiPAP FiO2 40%, still on low dose Levophed gtt, TPN initiated. On dialysis Overnight still febrile. Dialysis today. She wakes up and responds to pain. No CP. Vitals/I&O Vitals/I&O: Vital Signs Date Time Temp Pulse Resp B/P (MAP) Pulse Ox O2 Delivery O2 Flow Rate FiO2 07/13/19 08:00 99 Ventilator 07/13/19 06:00 117 26 86/47 (60) 07/13/19 05:00 101.0 101.0 07/13/19 02:50 6.0 I & O 07/12/19 07/12/19 07/13/19 14:59 22:59 06:59 Intake Total 700 ml 1318 ml 1070.0 ml Output Total 74 ml 340 ml 80 ml Balance 626 ml 978 ml 990.0 ml Physical Exam Physical Exam: GENERAL:Intubated/sedated HEENT: Mild icterus. Oral mucosa very dry. NECK: Supple. LUNGS: Decreased breath sounds at the bases. HEART: S1, S2, tachycardia, 120s, regular ABDOMEN: Distended, + BS. Rectal tube in place - soft : Lind EXTREMITIES: Trace edema, no cyanosis - less mottled but toes appear a little ischemic. DERMATOLOGIC: Warm and dry. No generalized rash. CENTRAL NERVOUS SYSTEM: Intubated IV: RIJ Temp HDC & RUE PICC - Left IJ General: No acute distress Heart: Other (increased rate) Lungs: Crackles, Other (dull at bases) Abdomen: Soft, Other (ND) Extremities: No edema, Other (SOME CLUBBING ) Skin: Other (mottling noted to extremities ) Labs Labs: Laboratory Tests Test 07/12/19 12:53 07/12/19 16:30 07/13/19 00:02 07/13/19 00:55 Glucose (Fingerstick) 225 mg/dL (70-99) 274 mg/dL (70-99) Sodium Level 139 mmol/L (136-145) 139 mmol/L (136-145) Potassium Level 3.7 mmol/L (3.5-5.1) 3.7 mmol/L (3.5-5.1) Chloride Level 103 mmol/L (98-107) 103 mmol/L (98-107) Carbon Dioxide Level 29 mmol/L (21-32) 23 mmol/L (21-32) Anion Gap 7 (6-14) 13 (6-14) Blood Urea Nitrogen 36 mg/dL (7-20) 42 mg/dL (7-20) Creatinine 2.1 mg/dL (0.6-1.0) 2.2 mg/dL (0.6-1.0) Estimated GFR (Cockcroft-Gault) 25.0 23.7 Glucose Level 280 mg/dL (70-99) 274 mg/dL (70-99) Calcium Level 7.2 mg/dL (8.5-10.1) 7.7 mg/dL (8.5-10.1) Phosphorus Level 2.5 mg/dL (2.6-4.7) 2.4 mg/dL (2.6-4.7) Magnesium Level 2.3 mg/dL (1.8-2.4) 2.3 mg/dL (1.8-2.4) Test 07/13/19 06:00 07/13/19 08:00 White Blood Count 26.3 x10^3/uL (4.0-11.0) Red Blood Count 2.41 x10^6/uL (3.50-5.40) Hemoglobin 7.8 g/dL (12.0-15.5) Hematocrit 23.6 % (36.0-47.0) Mean Corpuscular Volume 98 fL (79-100) Mean Corpuscular Hemoglobin 33 pg (25-35) Mean Corpuscular Hemoglobin Concent 33 g/dL (31-37) Red Cell Distribution Width 13.4 % (11.5-14.5) Platelet Count 292 x10^3/uL (140-400) Neutrophils (%) (Auto) 90 % (31-73) Lymphocytes (%) (Auto) 4 % (24-48) Monocytes (%) (Auto) 5 % (0-9) Eosinophils (%) (Auto) 1 % (0-3) Basophils (%) (Auto) 0 % (0-3) Neutrophils # (Auto) 23.8 x10^3/uL (1.8-7.7) Lymphocytes # (Auto) 1.0 x10^3/uL (1.0-4.8) Monocytes # (Auto) 1.2 x10^3/uL (0.0-1.1) Eosinophils # (Auto) 0.3 x10^3/uL (0.0-0.7) Basophils # (Auto) 0.0 x10^3/uL (0.0-0.2) Sodium Level 137 mmol/L (136-145) Potassium Level 3.6 mmol/L (3.5-5.1) Chloride Level 103 mmol/L (98-107) Carbon Dioxide Level 26 mmol/L (21-32) Anion Gap 8 (6-14) Blood Urea Nitrogen 50 mg/dL (7-20) Creatinine 2.7 mg/dL (0.6-1.0) Estimated GFR (Cockcroft-Gault) 18.7 BUN/Creatinine Ratio 19 (6-20) Glucose Level 270 mg/dL (70-99) Calcium Level 7.5 mg/dL (8.5-10.1) Phosphorus Level 2.3 mg/dL (2.6-4.7) Magnesium Level 2.3 mg/dL (1.8-2.4) Total Bilirubin 0.4 mg/dL (0.2-1.0) Aspartate Amino Transf (AST/SGOT) 27 U/L (15-37) Alanine Aminotransferase (ALT/SGPT) 12 U/L (14-59) Alkaline Phosphatase 82 U/L (46-116) Total Protein 4.3 g/dL (6.4-8.2) Albumin 1.4 g/dL (3.4-5.0) Albumin/Globulin Ratio 0.5 (1.0-1.7) Lactic Acid Level 1.4 mmol/L (0.4-2.0) Assessment and Plan Assessmemt and Plan Problems Medical Problems: (1) Acute pancreatitis Status: Acute (2) Cholelithiasis Status: Acute Respiratory failure requiring intubation this morning Severe Acute pancreatitis Acute kidney failure now requiring dialysis Salpingo--itis Gallstones (Calculus of gallbladder with acute cholecystitis without obstruction) HTN Leukocytosis Hypoxia Uterine fibroid Hypoxia with respiratory failure Intractable pain Intractable nausea Plan CRRT Mechanical ventilation Hemodialysis BiPAP ICU monitoring Trend labs especially white count and lipase levels We have consulted GI and general surgery IV antibiotics IV fluids WA narcotics When necessary anti-medics Home meds if possible DVT prophylaxis Full code She is critically ill Total time 34 minutes Comment Review of Relevant I have reviewed the following items kolby (where applicable) has been applied. Medications: Current Medications Medications (Trade) Dose Ordered Sig/Yvon Route PRN Reason Start Time Stop Time Status Last Admin Dose Admin Meropenem 500 mg/ Sodium Chloride 50 ml @ 100 mls/hr Q6HRS IV 07/12/19 09:00 07/13/19 07:29 DC 07/13/19 06:00 Potassium Phosphate 20 mmol/ Sodium Chloride 106.6667 ml @ 51.667 m... 1X ONCE IV 07/12/19 10:15 07/12/19 12:18 DC 07/12/19 11:22 Acetaminophen (Tylenol Supp) 650 mg PRN Q6HRS PRN WA MILD PAIN / TEMP 07/12/19 10:30 07/12/19 10:37 Potassium Chloride/Water 100 ml @ 100 mls/hr Q1H IV 07/12/19 11:00 07/12/19 12:59 DC 07/12/19 12:12 Potassium Chloride 20 meq/ Bicarbonate Dialysis Soln w/ out KCl 5,010 ml @ 1,000 mls/hr Q5H1M IV 07/12/19 12:00 07/13/19 13:03 07/13/19 08:48 Potassium Chloride 20 meq/ Bicarbonate Dialysis Soln w/ out KCl 5,010 ml @ 1,000 mls/hr Q5H1M IV 07/12/19 11:30 07/13/19 08:48 Potassium Chloride 20 meq/ Bicarbonate Dialysis Soln w/ out KCl 5,010 ml @ 1,000 mls/hr Q5H1M IV 07/12/19 11:30 07/13/19 08:54 Sodium Chloride 90 meq/Potassium Chloride 15 meq/ Potassium Phosphate 15 mmol/ Magnesium Sulfate 10 meq/Calcium Gluconate 15 meq/ Multivitamins 10 ml/Chromium/ Copper/Manganese/ Seleni/Zn 0.5 ml/ Total Parenteral Nutrition/Amino Acids/Dextrose/ Fat Emulsion Intravenous 1,400 ml @ 58.333 mls/ hr TPN CONT IV 07/12/19 22:00 07/13/19 21:59 07/12/19 22:17 Daptomycin 500 mg/ Sodium Chloride 50 ml @ 100 mls/hr Q48H IV 07/13/19 08:30 07/13/19 08:45 Hemodynamically unstable?: Yes Is patient in severe pain?: Yes Is NPO status required?: Yes BEBO KIRBY III DO Jul 13, 2019 08:56
[2019-07-13 09:06] LABS: BASE EXCESS ABG -2 mmol/L (-3-3); HCO3 ABG 22 mmol/L (21-28); PCO2 ABG 32 mmHg (35-46); PO2 ABG 99 mmHg (75-108); SAT O2 ABG 97 % (92-99)
[2019-07-13] MEDS: PANTOPRAZOLE IV PUSH 40 MG VIAL. IVP SCH (09:08)
[2019-07-13] MEDS: MICAFUNGIN 100 MG in IV DEXTROSE 5% 100ML 100 ML IV SCH (09:16)
[2019-07-13] MEDS: CEFEPIME HCL IV Push 2 GM VIAL. IVP SCH ×2 (09:23→21:10)
--- NOTE | 2019-07-13 09:49 | PDOC ---
SUBJECTIVE ROS Intubated this am, On pressors OBJECTIVE Vital Signs Vital Signs Date Time Temp Pulse Resp B/P (MAP) Pulse Ox O2 Delivery O2 Flow Rate FiO2 07/13/19 09:40 99 Ventilator 07/13/19 06:00 117 26 86/47 (60) 07/13/19 05:00 101.0 101.0 07/13/19 02:50 6.0 I & 0 Intake and Output 07/13/19 07:00 Intake Total 3088.0 ml Output Total 494 ml Balance 2594.0 ml IV Total 2957.0 ml Other 131 ml Output Urine Total 194 ml Stool Total 200 ml Gastric Drainage Total 100 ml PHYSICAL EXAM Physical Exam GENERAL: Intubated on MV HEENT: Mild icterus, Intubated NECK: Supple. LUNGS: Decreased breath sounds at the bases. HEART: S1, S2, tachycardia, 110s, ABDOMEN: Distended, + BS. Rectal tube in place : Lind + EXTREMITIES: Trace edema, no cyanosis - mottled. DERMATOLOGIC: Warm and dry. No generalized rash. 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 GI, ID, and general surgery following Calculus of gallbladder with acute cholecystitis without obstruction - with secondary pancreatitis. Lap ronel is indicated, will need to await pancreatitis resolution HTN - Hypotensive currently and on pressors Sepsis - with acute pancreatitis as end organ dysfunction, sign of infection, zyvox, merrem Hypoxia with respiratory failure - intubated COMMENT/RELEVANT DATA Meds Current Medications Medications (Trade) Dose Ordered Sig/Yvon Start Time Stop Time Status Last Admin Dose Admin Acetaminophen (Tylenol Supp) 650 mg PRN Q6HRS PRN 07/12/19 10:30 07/12/19 10:37 650 MG Acetaminophen (Tylenol) 650 mg PRN Q6HRS PRN 07/09/19 03:36 07/09/19 16:36 650 MG Albumin Human 200 ml @ 200 mls/hr 1X ONCE 07/11/19 07:30 07/11/19 08:29 DC 07/11/19 08:51 200 MLS/HR Albuterol Sulfate (Ventolin Neb Soln) 2.5 mg 1X ONCE 07/05/19 22:30 07/05/19 22:31 DC 07/06/19 00:56 2.5 MG Artificial Tears (Artificial Tears) 1 drop PRN Q1HR PRN 07/11/19 08:15 Atenolol (Tenormin) 100 mg DAILY 07/05/19 09:00 07/04/19 20:08 DC Benzocaine (Hurricaine One) 1 spray 1X ONCE 07/08/19 14:30 07/08/19 14:31 DC 07/08/19 16:38 1 SPRAY Calcium Carbonate/ Glycine (Tums) 500 mg PRN AFTMEALHC PRN 07/06/19 17:45 Calcium Chloride 1000 mg/Sodium Chloride 110 ml @ 220 mls/hr 1X ONCE 07/05/19 22:30 07/05/19 22:59 DC 07/05/19 22:11 220 MLS/HR Calcium Chloride 3000 mg/Sodium Chloride 1,030 ml @ 50 mls/hr [id number] 07/07/19 08:00 07/09/19 15:23 DC 07/09/19 02:17 50 MLS/HR Calcium Gluconate (Calcium Gluconate) 2,000 mg 1X ONCE 07/07/19 02:15 07/07/19 02:16 DC 07/07/19 02:19 2,000 MG Calcium Gluconate 1000 mg/Sodium Chloride 110 ml @ 220 mls/hr 1X ONCE 07/06/19 03:30 07/06/19 03:59 DC 07/06/19 03:21 220 MLS/HR Calcium Gluconate 2000 mg/Sodium Chloride 120 ml @ 220 mls/hr 1X ONCE 07/06/19 07:30 07/06/19 08:02 DC 3/18/20 09:05 220 MLS/HR Cefepime HCl (Maxipime) 2 gm Q12HR 07/13/19 09:00 07/13/19 09:23 2 GM Daptomycin 500 mg/ Sodium Chloride 50 ml @ 100 mls/hr Q48H 07/13/19 08:30 07/13/19 08:45 100 MLS/HR Dextrose (Dextrose 50%-Water Syringe) 12.5 gm PRN Q15MIN PRN 07/04/19 09:30 Digoxin (Lanoxin) 125 mcg 1X ONCE 07/07/19 18:00 07/07/19 18:01 DC 07/07/19 17:10 125 MCG Diphenhydramine HCl (Benadryl) 25 mg 1X PRN PRN 07/11/19 07:30 07/12/19 07:29 DC Etomidate (Amidate) 8 mg 1X ONCE 07/11/19 08:30 07/11/19 08:31 DC 07/11/19 08:33 8 MG Fentanyl Citrate 30 ml @ 0 mls/hr CONT PRN 07/11/19 08:15 07/13/19 02:50 3.75 MLS/HR Fentanyl Citrate (Fentanyl 2ml Vial) 100 mcg STK-MED ONCE 07/04/19 03:18 07/04/19 03:18 DC Furosemide (Lasix) 40 mg 1X ONCE 07/05/19 22:30 07/05/19 22:31 DC 07/05/19 22:12 40 MG Heparin Sodium (Porcine) (Heparin Sodium) 5,000 unit Q8HRS 07/11/19 15:00 07/12/19 22:15 5,000 UNIT Hydromorphone HCl (Dilaudid) 1 mg PRN Q3HRS PRN 07/05/19 12:00 07/11/19 05:13 1 MG Info (CONTRAST GIVEN -- Rx MONITORING) 1 each PRN DAILY PRN 07/05/19 17:00 07/07/19 16:59 DC Info (PHARMACY MONITORING -- do not chart) 1 each PRN DAILY PRN 07/11/19 07:30 Info (Tpn Per Pharmacy) 1 each PRN DAILY PRN 07/06/19 12:30 UNV Insulin Human Lispro (HumaLOG) 0-9 UNITS Q6HRS 07/04/19 09:30 07/13/19 00:06 7 UNITS Insulin Human Regular (HumuLIN R VIAL) 5 unit 1X ONCE 07/05/19 22:30 07/05/19 22:31 DC 07/05/19 22:14 5 UNIT Iohexol (Omnipaque 300 Mg/ml) 60 ml 1X ONCE 07/05/19 17:00 07/05/19 17:01 DC 07/05/19 17:20 60 ML Iohexol (Omnipaque 350 Mg/ml) 90 ml 1X ONCE 07/04/19 03:30 07/04/19 03:31 DC 07/04/19 03:25 90 ML Ketorolac Tromethamine (Toradol 30mg Vial) 30 mg 1X ONCE 07/04/19 03:00 07/04/19 03:01 DC 07/04/19 02:54 30 MG Lidocaine HCl (Buffered Lidocaine 1%) 6 ml 1X ONCE 07/06/19 10:15 07/06/19 10:16 DC 07/06/19 10:26 4 ML Lidocaine HCl (Glydo (Lidocaine) Jelly) 1 ramu 1X ONCE 07/08/19 14:30 07/08/19 14:31 DC 07/08/19 16:38 1 RAMU Lidocaine HCl (Xylocaine-Mpf 1% 2ml Vial) 2 ml STK-MED ONCE 07/06/19 08:47 07/06/19 08:47 DC Linezolid/Dextrose 300 ml @ 300 mls/hr Q12HR 07/08/19 20:00 07/13/19 09:09 300 MLS/HR Lorazepam (Ativan Inj) 1 mg PRN Q4HRS PRN 07/07/19 09:00 07/11/19 00:34 1 MG Magnesium Sulfate 100 ml @ 25 mls/hr 1X ONCE 07/07/19 13:00 07/07/19 16:59 DC 07/07/19 12:48 25 MLS/HR Meropenem 1 gm/ Sodium Chloride 100 ml @ 200 mls/hr Q8HRS 07/05/19 20:00 07/06/19 08:48 DC 07/06/19 05:45 200 MLS/HR Meropenem 500 mg/ Sodium Chloride 50 ml @ 100 mls/hr Q6HRS 07/12/19 09:00 3/25/20 07:29 DC 07/13/19 06:00 100 MLS/HR Metoprolol Tartrate (Lopressor Vial) 5 mg Q6HRS 07/05/19 10:15 07/13/19 02:54 5 MG Metronidazole 100 ml @ 100 mls/hr Q6HRS 07/11/19 08:30 07/13/19 06:54 100 MLS/HR Micafungin Sodium 100 mg/Dextrose 100 ml @ 100 mls/hr Q24H 07/11/19 09:00 07/13/19 09:16 100 MLS/HR Midazolam HCl (Versed) 5 mg 1X ONCE 07/11/19 08:30 07/11/19 08:31 DC Midazolam HCl 50 mg/Sodium Chloride 50 ml @ 0 mls/hr CONT PRN 07/11/19 08:15 07/13/19 02:51 7 MLS/HR Morphine Sulfate (Morphine Sulfate) 2 mg PRN Q2HR PRN 07/04/19 05:00 07/05/19 14:15 DC 07/05/19 12:26 2 MG Norepinephrine Bitartrate 8 mg/ Dextrose 258 ml @ 17.299 mls/ hr CONT PRN 07/05/19 15:30 07/12/19 23:55 6.92 MLS/HR Ondansetron HCl (Zofran) 4 mg PRN Q4HRS PRN 07/04/19 09:30 07/09/19 16:15 4 MG Pantoprazole Sodium (PROTONIX VIAL for IV PUSH) 40 mg DAILYAC 07/04/19 11:30 07/13/19 09:08 40 MG Piperacillin Sod/ Tazobactam Sod 4.5 gm/Sodium Chloride 100 ml @ 200 mls/hr 1X ONCE 07/04/19 06:00 07/04/19 06:29 DC 07/04/19 05:44 200 MLS/HR Potassium Chloride 15 meq/ Bicarbonate Dialysis Soln w/ out KCl 5,007.5 ml @ 1,000 mls/ hr Q5H1M 07/11/19 12:00 07/12/19 11:19 DC 07/12/19 11:11 1,000 MLS/HR Potassium Chloride 20 meq/ Bicarbonate Dialysis Soln w/ out KCl 5,010 ml @ 1,000 mls/hr Q5H1M 07/12/19 11:30 07/13/19 08:54 1,000 MLS/HR Potassium Chloride/Water 100 ml @ 100 mls/hr Q1H 07/12/19 11:00 07/12/19 12:59 DC 07/12/19 12:12 100 MLS/HR Potassium Phosphate 20 mmol/ Sodium Chloride 106.6667 ml @ 51.667 m... 1X ONCE 07/12/19 10:15 07/12/19 12:18 DC 07/12/19 11:22 51.667 MLS/HR Prochlorperazine Edisylate (Compazine) 10 mg PRN Q6HRS PRN 07/04/19 17:45 07/05/19 00:42 10 MG Propofol 0 ml @ As Directed STK-MED ONCE 07/11/19 07:53 07/11/19 07:53 DC Sodium Bicarbonate 50 meq/Sodium Chloride 1,050 ml @ 75 mls/hr Q14H 07/06/19 07:30 07/11/19 10:28 DC 07/10/19 21:10 75 MLS/HR Sodium Chloride (Normal Saline Flush) 10 ml 1X PRN PRN 07/09/19 08:00 07/10/19 07:59 DC Sodium Chloride 90 meq/Calcium Gluconate 10 meq/ Multivitamins 10 ml/Chromium/ Copper/Manganese/ Seleni/Zn 0.5 ml/ Total Parenteral Nutrition/Amino Acids/Dextrose/ Fat Emulsion Intravenous 1,512 ml @ 63 mls/hr TPN CONT 07/06/19 22:00 07/07/19 21:59 DC 07/06/19 22:06 63 MLS/HR Sodium Chloride 90 meq/Calcium Gluconate 10 meq/ Multivitamins 10 ml/Chromium/ Copper/Manganese/ Seleni/Zn 1 ml/ Total Parenteral Nutrition/Amino Acids/Dextrose/ Fat Emulsion Intravenous 55.005 ml @ 2.292 mls/hr TPN CONT 07/06/19 22:00 07/06/19 12:33 DC Sodium Chloride 90 meq/Magnesium Sulfate 10 meq/ Calcium Gluconate 20 meq/ Multivitamins 10 ml/Chromium/ Copper/Manganese/ Seleni/Zn 0.5 ml/ Total Parenteral Nutrition/Amino Acids/Dextrose/ Fat Emulsion Intravenous 1,512 ml @ 63 mls/hr TPN CONT 07/07/19 22:00 07/08/19 21:59 DC 07/07/19 22:25 63 MLS/HR Sodium Chloride 90 meq/Potassium Chloride 15 meq/ Potassium Phosphate 10 mmol/ Magnesium Sulfate 10 meq/Calcium Gluconate 20 meq/ Multivitamins 10 ml/Chromium/ Copper/Manganese/ Seleni/Zn 0.5 ml/ Total Parenteral Nutrition/Amino Acids/Dextrose/ Fat Emulsion Intravenous 1,400 ml @ 58.333 mls/ hr TPN CONT 07/11/19 22:00 07/12/19 21:59 DC 07/11/19 21:42 58.333 MLS/HR Sodium Chloride 90 meq/Potassium Chloride 15 meq/ Potassium Phosphate 15 mmol/ Magnesium Sulfate 10 meq/Calcium Gluconate 15 meq/ Multivitamins 10 ml/Chromium/ Copper/Manganese/ Seleni/Zn 0.5 ml/ Total Parenteral Nutrition/Amino Acids/Dextrose/ Fat Emulsion Intravenous 1,400 ml @ 58.333 mls/ hr TPN CONT 07/12/19 22:00 07/13/19 21:59 07/12/19 22:17 58.333 MLS/HR Sodium Chloride 90 meq/Potassium Chloride 15 meq/ Potassium Phosphate 15 mmol/ Magnesium Sulfate 10 meq/Calcium Gluconate 20 meq/ Multivitamins 10 ml/Chromium/ Copper/Manganese/ Seleni/Zn 0.5 ml/ Total Parenteral Nutrition/Amino Acids/Dextrose/ Fat Emulsion Intravenous 1,200 ml @ 50 mls/hr TPN CONT 07/10/19 22:00 07/10/19 14:17 DC Succinylcholine Chloride (Anectine) 120 mg 1X ONCE 07/11/19 08:30 07/11/19 08:31 DC 07/11/19 08:34 120 MG Lab Laboratory Tests Test 07/12/19 12:53 07/12/19 16:30 07/13/19 00:02 07/13/19 00:55 Glucose (Fingerstick) 225 mg/dL (70-99) 274 mg/dL (70-99) Sodium Level 139 mmol/L (136-145) 139 mmol/L (136-145) Potassium Level 3.7 mmol/L (3.5-5.1) 3.7 mmol/L (3.5-5.1) Chloride Level 103 mmol/L (98-107) 103 mmol/L (98-107) Carbon Dioxide Level 29 mmol/L (21-32) 23 mmol/L (21-32) Anion Gap 7 (6-14) 13 (6-14) Blood Urea Nitrogen 36 mg/dL (7-20) 42 mg/dL (7-20) Creatinine 2.1 mg/dL (0.6-1.0) 2.2 mg/dL (0.6-1.0) Estimated GFR (Cockcroft-Gault) 25.0 23.7 Glucose Level 280 mg/dL (70-99) 274 mg/dL (70-99) Calcium Level 7.2 mg/dL (8.5-10.1) 7.7 mg/dL (8.5-10.1) Phosphorus Level 2.5 mg/dL (2.6-4.7) 2.4 mg/dL (2.6-4.7) Magnesium Level 2.3 mg/dL (1.8-2.4) 2.3 mg/dL (1.8-2.4) Test 07/13/19 06:00 07/13/19 08:00 White Blood Count 26.3 x10^3/uL (4.0-11.0) Red Blood Count 2.41 x10^6/uL (3.50-5.40) Hemoglobin 7.8 g/dL (12.0-15.5) Hematocrit 23.6 % (36.0-47.0) Mean Corpuscular Volume 98 fL (79-100) Mean Corpuscular Hemoglobin 33 pg (25-35) Mean Corpuscular Hemoglobin Concent 33 g/dL (31-37) Red Cell Distribution Width 13.4 % (11.5-14.5) Platelet Count 292 x10^3/uL (140-400) Neutrophils (%) (Auto) 90 % (31-73) Lymphocytes (%) (Auto) 4 % (24-48) Monocytes (%) (Auto) 5 % (0-9) Eosinophils (%) (Auto) 1 % (0-3) Basophils (%) (Auto) 0 % (0-3) Neutrophils # (Auto) 23.8 x10^3/uL (1.8-7.7) Lymphocytes # (Auto) 1.0 x10^3/uL (1.0-4.8) Monocytes # (Auto) 1.2 x10^3/uL (0.0-1.1) Eosinophils # (Auto) 0.3 x10^3/uL (0.0-0.7) Basophils # (Auto) 0.0 x10^3/uL (0.0-0.2) Segmented Neutrophils % 73 % (35-66) Band Neutrophils % 19 % (0-9) Lymphocytes % 3 % (24-48) Monocytes % 1 % (0-10) Metamyelocytes % 3 % (0-0) Myelocytes % 1 % (0-0) Toxic Granulation Slight Dohle Bodies Few Platelet Estimate Adequate (ADEQUATE) Sodium Level 137 mmol/L (136-145) Potassium Level 3.6 mmol/L (3.5-5.1) Chloride Level 103 mmol/L (98-107) Carbon Dioxide Level 26 mmol/L (21-32) Anion Gap 8 (6-14) Blood Urea Nitrogen 50 mg/dL (7-20) Creatinine 2.7 mg/dL (0.6-1.0) Estimated GFR (Cockcroft-Gault) 18.7 BUN/Creatinine Ratio 19 (6-20) Glucose Level 270 mg/dL (70-99) Calcium Level 7.5 mg/dL (8.5-10.1) Phosphorus Level 2.3 mg/dL (2.6-4.7) Magnesium Level 2.3 mg/dL (1.8-2.4) Total Bilirubin 0.4 mg/dL (0.2-1.0) Aspartate Amino Transf (AST/SGOT) 27 U/L (15-37) Alanine Aminotransferase (ALT/SGPT) 12 U/L (14-59) Alkaline Phosphatase 82 U/L (46-116) Total Protein 4.3 g/dL (6.4-8.2) Albumin 1.4 g/dL (3.4-5.0) Albumin/Globulin Ratio 0.5 (1.0-1.7) Lactic Acid Level 1.4 mmol/L (0.4-2.0) Results All relevant outside records, renal labs, imaging studies, telemetry/EKG's were reviewed. Other CxR-- Moderate congestive changes with small left pleural effusion unchanged. VERENA KENT MD Jul 13, 2019 09:49
[2019-07-13] MEDS ORDERED: LIDOCAINE WITH 8.4% SOD BICARB 3 ML DISP.SYRIN. ONE (10:00)
--- NOTE | 2019-07-13 10:13 | PDOC ---
Objective: Objective: D/w nurse. Vital Signs: Vital Signs Date Time Temp Pulse Resp B/P (MAP) Pulse Ox O2 Delivery O2 Flow Rate FiO2 07/13/19 09:40 99 Ventilator 07/13/19 06:00 117 26 86/47 (60) 07/13/19 05:00 101.0 101.0 07/13/19 02:50 6.0 Labs: Laboratory Tests Test 07/12/19 12:53 07/12/19 16:30 07/13/19 00:02 07/13/19 00:55 Glucose (Fingerstick) 225 mg/dL 274 mg/dL Sodium Level 139 mmol/L 139 mmol/L Potassium Level 3.7 mmol/L 3.7 mmol/L Chloride Level 103 mmol/L 103 mmol/L Carbon Dioxide Level 29 mmol/L 23 mmol/L Anion Gap 7 13 Blood Urea Nitrogen 36 mg/dL 42 mg/dL Creatinine 2.1 mg/dL 2.2 mg/dL Estimated GFR (Cockcroft-Gault) 25.0 23.7 Glucose Level 280 mg/dL 274 mg/dL Calcium Level 7.2 mg/dL 7.7 mg/dL Phosphorus Level 2.5 mg/dL 2.4 mg/dL Magnesium Level 2.3 mg/dL 2.3 mg/dL Test 07/13/19 06:00 07/13/19 08:00 White Blood Count 26.3 x10^3/uL Red Blood Count 2.41 x10^6/uL Hemoglobin 7.8 g/dL Hematocrit 23.6 % Mean Corpuscular Volume 98 fL Mean Corpuscular Hemoglobin 33 pg Mean Corpuscular Hemoglobin Concent 33 g/dL Red Cell Distribution Width 13.4 % Platelet Count 292 x10^3/uL Neutrophils (%) (Auto) 90 % Lymphocytes (%) (Auto) 4 % Monocytes (%) (Auto) 5 % Eosinophils (%) (Auto) 1 % Basophils (%) (Auto) 0 % Neutrophils # (Auto) 23.8 x10^3/uL Lymphocytes # (Auto) 1.0 x10^3/uL Monocytes # (Auto) 1.2 x10^3/uL Eosinophils # (Auto) 0.3 x10^3/uL Basophils # (Auto) 0.0 x10^3/uL Segmented Neutrophils % 73 % Band Neutrophils % 19 % Lymphocytes % 3 % Monocytes % 1 % Metamyelocytes % 3 % Myelocytes % 1 % Toxic Granulation Slight Dohle Bodies Few Platelet Estimate Adequate Sodium Level 137 mmol/L Potassium Level 3.6 mmol/L Chloride Level 103 mmol/L Carbon Dioxide Level 26 mmol/L Anion Gap 8 Blood Urea Nitrogen 50 mg/dL Creatinine 2.7 mg/dL Estimated GFR (Cockcroft-Gault) 18.7 BUN/Creatinine Ratio 19 Glucose Level 270 mg/dL Calcium Level 7.5 mg/dL Phosphorus Level 2.3 mg/dL Magnesium Level 2.3 mg/dL Total Bilirubin 0.4 mg/dL Aspartate Amino Transf (AST/SGOT) 27 U/L Alanine Aminotransferase (ALT/SGPT) 12 U/L Alkaline Phosphatase 82 U/L Total Protein 4.3 g/dL Albumin 1.4 g/dL Albumin/Globulin Ratio 0.5 Lactic Acid Level 1.4 mmol/L Imaging: CXR 07/12 IMPRESSION: 1. Lines and tubes as described. 2. Moderate congestive changes with small left pleural effusion unchanged. PE: GEN: intubated on CRRT, RT and nurse educator present LUNGS: vent, diminished HEART: tachycardic ABD: stable firmness, OG dark bilious, rectal tube dark liquid, ?flinched w/ palpation NEURO/PSYCH: sedated A/P: Gallstone pancreatitis, fever, MOSF -- Continue support, will review w/ Dr. Weber. Hemodynamically unstable?: Yes Is patient in severe pain?: Yes Is NPO status required?: Yes CYNDEE FALCON Jul 13, 2019 10:13
[2019-07-13] MEDS ORDERED: LIDOCAINE WITH 8.4% SOD BICARB 3 ML DISP.SYRIN. INJ ONE (10:30)
--- NOTE | 2019-07-13 11:17 | RAD ---
PORTABLE CHEST 1V History: Central line placement Comparison: July 13, 2019 Findings: Right IJ central line with tip projecting over the cavoatrial junction. Left sided central line with tip projecting over the right atrium, unchanged. Unchanged right PICC. No pneumothorax. Stable endotracheal tube and enteric tube. Diffuse interstitial thickening with patchy bibasilar opacities, unchanged. Small layering left pleural effusion, unchanged. Low lung volumes. Impression: 1. Right IJ central line tip projecting over the cavoatrial junction. 2. Diffuse interstitial and alveolar opacities, unchanged. 3. Small layering left pleural effusion. Electronically signed by: Sukhdev Sadler DO (07/13/2019 11:14 AM) [id number]
--- NOTE | 2019-07-13 11:30 | PDOC ---
SURGICAL PROGRESS NOTE Subjective Pt appears comfortable, oxygen requirements done Vital Signs Vital Signs Date Time Temp Pulse Resp B/P (MAP) Pulse Ox O2 Delivery O2 Flow Rate FiO2 07/13/19 11:00 116 25 127/57 (80) 99 Ventilator 07/13/19 10:11 6.0 07/13/19 08:00 102.2 102.2 I&O Intake and Output 07/13/19 06:59 Intake Total 3088.0 ml Output Total 494 ml Balance 2594.0 ml IV Total 2957.0 ml Other 131 ml Output Urine Total 194 ml Stool Total 200 ml Gastric Drainage Total 100 ml PATIENT HAS A ROSARIO: Yes (accurate i and os) General: No acute distress Abdomen: Soft, No tenderness, Other (some distention) Labs Laboratory Tests Test 07/11/19 12:32 07/11/19 15:40 07/11/19 17:35 07/11/19 18:26 Glucose (Fingerstick) 146 mg/dL (70-99) 272 mg/dL (70-99) Clostridium difficile Toxin B Gene Negative (Negative) O2 Saturation 93 % (92-99) Arterial Blood pH 7.46 (7.35-7.45) Arterial Blood pCO2 at Patient Temp 40 mmHg (35-46) Arterial Blood pO2 at Patient Temp 63 mmHg (75-108) Arterial Blood HCO3 27 mmol/L (21-28) Arterial Blood Base Excess 3 mmol/L (-3-3) FiO2 90 +10peep Test 07/11/19 21:17 07/12/19 00:05 07/12/19 05:15 07/12/19 05:49 Sodium Level 139 mmol/L (136-145) 137 mmol/L (136-145) Potassium Level 3.4 mmol/L (3.5-5.1) 3.3 mmol/L (3.5-5.1) Chloride Level 101 mmol/L (98-107) 101 mmol/L (98-107) Carbon Dioxide Level 32 mmol/L (21-32) 30 mmol/L (21-32) Anion Gap 6 (6-14) 6 (6-14) Blood Urea Nitrogen 28 mg/dL (7-20) 32 mg/dL (7-20) Creatinine 2.6 mg/dL (0.6-1.0) 2.2 mg/dL (0.6-1.0) Estimated GFR (Cockcroft-Gault) 19.6 23.7 Glucose Level 198 mg/dL (70-99) 239 mg/dL (70-99) Calcium Level 7.5 mg/dL (8.5-10.1) 7.5 mg/dL (8.5-10.1) Phosphorus Level 2.5 mg/dL (2.6-4.7) 2.2 mg/dL (2.6-4.7) Magnesium Level 2.2 mg/dL (1.8-2.4) 2.2 mg/dL (1.8-2.4) Glucose (Fingerstick) 222 mg/dL (70-99) 217 mg/dL (70-99) White Blood Count 20.5 x10^3/uL (4.0-11.0) Red Blood Count 2.52 x10^6/uL (3.50-5.40) Hemoglobin 8.3 g/dL (12.0-15.5) Hematocrit 24.4 % (36.0-47.0) Mean Corpuscular Volume 97 fL (79-100) Mean Corpuscular Hemoglobin 33 pg (25-35) Mean Corpuscular Hemoglobin Concent 34 g/dL (31-37) Red Cell Distribution Width 13.1 % (11.5-14.5) Platelet Count 242 x10^3/uL (140-400) Neutrophils (%) (Auto) 93 % (31-73) Lymphocytes (%) (Auto) 2 % (24-48) Monocytes (%) (Auto) 3 % (0-9) Eosinophils (%) (Auto) 2 % (0-3) Basophils (%) (Auto) 0 % (0-3) Neutrophils # (Auto) 19.1 x10^3/uL (1.8-7.7) Lymphocytes # (Auto) 0.4 x10^3/uL (1.0-4.8) Monocytes # (Auto) 0.6 x10^3/uL (0.0-1.1) Eosinophils # (Auto) 0.4 x10^3/uL (0.0-0.7) Basophils # (Auto) 0.1 x10^3/uL (0.0-0.2) Thyroid Stimulating Hormone (TSH) 1.091 uIU/mL (0.358-3.74) Test 07/12/19 08:05 07/12/19 12:53 07/12/19 16:30 07/13/19 00:02 O2 Saturation 99 % (92-99) Arterial Blood pH 7.47 (7.35-7.45) Arterial Blood pCO2 at Patient Temp 34 mmHg (35-46) Arterial Blood pO2 at Patient Temp 161 mmHg (75-108) Arterial Blood HCO3 24 mmol/L (21-28) Arterial Blood Base Excess 1 mmol/L (-3-3) FiO2 90 Glucose (Fingerstick) 225 mg/dL (70-99) 274 mg/dL (70-99) Sodium Level 139 mmol/L (136-145) Potassium Level 3.7 mmol/L (3.5-5.1) Chloride Level 103 mmol/L (98-107) Carbon Dioxide Level 29 mmol/L (21-32) Anion Gap 7 (6-14) Blood Urea Nitrogen 36 mg/dL (7-20) Creatinine 2.1 mg/dL (0.6-1.0) Estimated GFR (Cockcroft-Gault) 25.0 Glucose Level 280 mg/dL (70-99) Calcium Level 7.2 mg/dL (8.5-10.1) Phosphorus Level 2.5 mg/dL (2.6-4.7) Magnesium Level 2.3 mg/dL (1.8-2.4) Test 07/13/19 00:55 07/13/19 06:00 07/13/19 08:00 Sodium Level 139 mmol/L (136-145) 137 mmol/L (136-145) Potassium Level 3.7 mmol/L (3.5-5.1) 3.6 mmol/L (3.5-5.1) Chloride Level 103 mmol/L (98-107) 103 mmol/L (98-107) Carbon Dioxide Level 23 mmol/L (21-32) 26 mmol/L (21-32) Anion Gap 13 (6-14) 8 (6-14) Blood Urea Nitrogen 42 mg/dL (7-20) 50 mg/dL (7-20) Creatinine 2.2 mg/dL (0.6-1.0) 2.7 mg/dL (0.6-1.0) Estimated GFR (Cockcroft-Gault) 23.7 18.7 Glucose Level 274 mg/dL (70-99) 270 mg/dL (70-99) Calcium Level 7.7 mg/dL (8.5-10.1) 7.5 mg/dL (8.5-10.1) Phosphorus Level 2.4 mg/dL (2.6-4.7) 2.3 mg/dL (2.6-4.7) Magnesium Level 2.3 mg/dL (1.8-2.4) 2.3 mg/dL (1.8-2.4) White Blood Count 26.3 x10^3/uL (4.0-11.0) Red Blood Count 2.41 x10^6/uL (3.50-5.40) Hemoglobin 7.8 g/dL (12.0-15.5) Hematocrit 23.6 % (36.0-47.0) Mean Corpuscular Volume 98 fL (79-100) Mean Corpuscular Hemoglobin 33 pg (25-35) Mean Corpuscular Hemoglobin Concent 33 g/dL (31-37) Red Cell Distribution Width 13.4 % (11.5-14.5) Platelet Count 292 x10^3/uL (140-400) Neutrophils (%) (Auto) 90 % (31-73) Lymphocytes (%) (Auto) 4 % (24-48) Monocytes (%) (Auto) 5 % (0-9) Eosinophils (%) (Auto) 1 % (0-3) Basophils (%) (Auto) 0 % (0-3) Neutrophils # (Auto) 23.8 x10^3/uL (1.8-7.7) Lymphocytes # (Auto) 1.0 x10^3/uL (1.0-4.8) Monocytes # (Auto) 1.2 x10^3/uL (0.0-1.1) Eosinophils # (Auto) 0.3 x10^3/uL (0.0-0.7) Basophils # (Auto) 0.0 x10^3/uL (0.0-0.2) Segmented Neutrophils % 73 % (35-66) Band Neutrophils % 19 % (0-9) Lymphocytes % 3 % (24-48) Monocytes % 1 % (0-10) Metamyelocytes % 3 % (0-0) Myelocytes % 1 % (0-0) Toxic Granulation Slight Dohle Bodies Few Platelet Estimate Adequate (ADEQUATE) BUN/Creatinine Ratio 19 (6-20) Total Bilirubin 0.4 mg/dL (0.2-1.0) Aspartate Amino Transf (AST/SGOT) 27 U/L (15-37) Alanine Aminotransferase (ALT/SGPT) 12 U/L (14-59) Alkaline Phosphatase 82 U/L (46-116) Total Protein 4.3 g/dL (6.4-8.2) Albumin 1.4 g/dL (3.4-5.0) Albumin/Globulin Ratio 0.5 (1.0-1.7) Lactic Acid Level 1.4 mmol/L (0.4-2.0) Laboratory Tests Test 07/12/19 12:53 07/12/19 16:30 07/13/19 00:02 07/13/19 00:55 Glucose (Fingerstick) 225 mg/dL (70-99) 274 mg/dL (70-99) Sodium Level 139 mmol/L (136-145) 139 mmol/L (136-145) Potassium Level 3.7 mmol/L (3.5-5.1) 3.7 mmol/L (3.5-5.1) Chloride Level 103 mmol/L (98-107) 103 mmol/L (98-107) Carbon Dioxide Level 29 mmol/L (21-32) 23 mmol/L (21-32) Anion Gap 7 (6-14) 13 (6-14) Blood Urea Nitrogen 36 mg/dL (7-20) 42 mg/dL (7-20) Creatinine 2.1 mg/dL (0.6-1.0) 2.2 mg/dL (0.6-1.0) Estimated GFR (Cockcroft-Gault) 25.0 23.7 Glucose Level 280 mg/dL (70-99) 274 mg/dL (70-99) Calcium Level 7.2 mg/dL (8.5-10.1) 7.7 mg/dL (8.5-10.1) Phosphorus Level 2.5 mg/dL (2.6-4.7) 2.4 mg/dL (2.6-4.7) Magnesium Level 2.3 mg/dL (1.8-2.4) 2.3 mg/dL (1.8-2.4) Test 07/13/19 06:00 07/13/19 08:00 White Blood Count 26.3 x10^3/uL (4.0-11.0) Red Blood Count 2.41 x10^6/uL (3.50-5.40) Hemoglobin 7.8 g/dL (12.0-15.5) Hematocrit 23.6 % (36.0-47.0) Mean Corpuscular Volume 98 fL (79-100) Mean Corpuscular Hemoglobin 33 pg (25-35) Mean Corpuscular Hemoglobin Concent 33 g/dL (31-37) Red Cell Distribution Width 13.4 % (11.5-14.5) Platelet Count 292 x10^3/uL (140-400) Neutrophils (%) (Auto) 90 % (31-73) Lymphocytes (%) (Auto) 4 % (24-48) Monocytes (%) (Auto) 5 % (0-9) Eosinophils (%) (Auto) 1 % (0-3) Basophils (%) (Auto) 0 % (0-3) Neutrophils # (Auto) 23.8 x10^3/uL (1.8-7.7) Lymphocytes # (Auto) 1.0 x10^3/uL (1.0-4.8) Monocytes # (Auto) 1.2 x10^3/uL (0.0-1.1) Eosinophils # (Auto) 0.3 x10^3/uL (0.0-0.7) Basophils # (Auto) 0.0 x10^3/uL (0.0-0.2) Segmented Neutrophils % 73 % (35-66) Band Neutrophils % 19 % (0-9) Lymphocytes % 3 % (24-48) Monocytes % 1 % (0-10) Metamyelocytes % 3 % (0-0) Myelocytes % 1 % (0-0) Toxic Granulation Slight Dohle Bodies Few Platelet Estimate Adequate (ADEQUATE) Sodium Level 137 mmol/L (136-145) Potassium Level 3.6 mmol/L (3.5-5.1) Chloride Level 103 mmol/L (98-107) Carbon Dioxide Level 26 mmol/L (21-32) Anion Gap 8 (6-14) Blood Urea Nitrogen 50 mg/dL (7-20) Creatinine 2.7 mg/dL (0.6-1.0) Estimated GFR (Cockcroft-Gault) 18.7 BUN/Creatinine Ratio 19 (6-20) Glucose Level 270 mg/dL (70-99) Calcium Level 7.5 mg/dL (8.5-10.1) Phosphorus Level 2.3 mg/dL (2.6-4.7) Magnesium Level 2.3 mg/dL (1.8-2.4) Total Bilirubin 0.4 mg/dL (0.2-1.0) Aspartate Amino Transf (AST/SGOT) 27 U/L (15-37) Alanine Aminotransferase (ALT/SGPT) 12 U/L (14-59) Alkaline Phosphatase 82 U/L (46-116) Total Protein 4.3 g/dL (6.4-8.2) Albumin 1.4 g/dL (3.4-5.0) Albumin/Globulin Ratio 0.5 (1.0-1.7) Lactic Acid Level 1.4 mmol/L (0.4-2.0) Problem List Problems Medical Problems: (1) Acute pancreatitis Status: Acute (2) Cholelithiasis Status: Acute Assessment/Plan severe pancreatitis cont supportive care no surgical plans currently, given significant increase morbidity and mortality with early surgery. DAVON SIMMS MD Jul 13, 2019 11:29
--- NOTE | 2019-07-13 12:24 | RAD ---
Replacement of a right internal jugular temporary dialysis catheter over a guidewire 07/13/2019 INDICATION: Pre-existing catheter nonfunctional Discussion The procedure was explained in its entirety to the patient or the patients designated junior sales representative by a member of the treatment team, including a discussion of the risks, benefits and commonly accepted alternatives to the procedure, as well as the expected consequences of no therapy whatsoever. Discussion of the risks included, but was not limited to, those that are most frequent and those that are rare but possibly severe or life-threatening, as well as the possibility of unforeseen complications. All elements of maximal sterile barrier technique including the use of a cap, mask, sterile gown, sterile gloves, large sterile sheet, appropriate hand hygiene, and 2% chlorhexidine for cutaneous antisepsis (or acceptable alternative antiseptic per current guidelines) were followed for this procedure. The pre-existing catheter was removed over a guidewire and replaced with a 15 cm temporary dialysis catheter which was found to flush and aspirate normally. Catheter was flushed, secured in place, and sterile dressings were applied. Impression: Replacement of a right internal jugular temporary dialysis catheter over a guidewire
[2019-07-13] MEDS: TPN PER PHARMACY MC PRN (12:27)
--- NOTE | 2019-07-13 12:27 | NUR ---
Pharmacy TPN Dosing Note S: SCOTT AVILA is a 48 year old F Currently receiving Central Continuous TPN started 07/06/19 B:Pertinent PMH: Necrotizing pancreatitis Height: 5 feet, 8 inches Weight: 106.346344 kg Current diet: NPO LABS: Sodium: 137 Potassium: 3.6 Chloride: 103 Calcium: 7.5 Corrected Calcium: 9.58 Magnesium: 2.3 CO2: 26 SCr: 2.7 Glucose: 270 Albumin: 1.4 AST: 56 ALT: 45 TPN FORMULA: TPN TYPE: Central Continuous AMINO ACIDS: 125 gm DEXTROSE: 195 gm LIPIDS: 40 gm SODIUM CHLORIDE: 90 mEq SODIUM ACETATE: -- mEq SODIUM PHOSPHATE: -- mmol POTASSIUM CHLORIDE: 15 mEq POTASSIUM ACETATE: -- mEq POTASSIUM PHOSPHATE: 18 mmol MAGNESIUM: 8 mEq CALCIUM: 15 mEq INSULIN: -- units MULTIPLE VITAMIN: 10 ml TRACE ELEMENTS: 0.5 ml(s) TPN PLAN: Will have to replace Ca and Phos outside of TPN if needed, at maxiumum concentrations due to Ca-Phos precipitation concern Phos low: 20mmol bolus x1 today Mag on upper end: decreased just slightly to 8meq Labs in the am R: Continue TPN as written above. Will monitor electrolytes, glucose, and tolerance to TPN. PADMINI YOUNG RPH, 07/13/19 [id number]
[2019-07-13] MEDS ORDERED: NORMAL SALINE IV ONE (13:00)
[2019-07-13] MEDS ORDERED: POTASSIUM PHOSPHATE DIBASIC IV ONE (13:00)
[2019-07-13] MEDS: HEPARIN for SUB-Q USE 5,000 UNIT/ML VIAL. SQ SCH ×2 (13:30→22:45)
[2019-07-13] MEDS: ALBUMIN HUMAN 5% 500 ML IV PRN ×2 (13:43→20:44)
[2019-07-13 13:53] LABS: FIO2 ABG 40
--- NOTE | 2019-07-13 15:20 | PDOC ---
PULMONARY PROGRESS NOTES Subjective Patient intubated on 07/10 T-max 102F she is on 1000% FiO2 10 of PEEP Vitals Vital Signs Date Time Temp Pulse Resp B/P (MAP) Pulse Ox O2 Delivery O2 Flow Rate FiO2 07/13/19 14:00 98.8 108 24 105/56 (72) 97 Ventilator 98.8 07/13/19 10:41 6.0 HEENT: Other (nc at perrl bipap mask on neck no lad no thyromegaly) Lungs: Crackles Cardiovascular: S1, S2 Abdomen: Other (distended, diffuse pain no mass) Extremities: No Edema Skin: Warm Labs Laboratory Tests Test 07/11/19 15:40 07/11/19 17:35 07/11/19 18:26 07/11/19 21:17 Clostridium difficile Toxin B Gene Negative (Negative) O2 Saturation 93 % (92-99) Arterial Blood pH 7.46 (7.35-7.45) Arterial Blood pCO2 at Patient Temp 40 mmHg (35-46) Arterial Blood pO2 at Patient Temp 63 mmHg (75-108) Arterial Blood HCO3 27 mmol/L (21-28) Arterial Blood Base Excess 3 mmol/L (-3-3) FiO2 90 +10peep Glucose (Fingerstick) 272 mg/dL (70-99) Sodium Level 139 mmol/L (136-145) Potassium Level 3.4 mmol/L (3.5-5.1) Chloride Level 101 mmol/L (98-107) Carbon Dioxide Level 32 mmol/L (21-32) Anion Gap 6 (6-14) Blood Urea Nitrogen 28 mg/dL (7-20) Creatinine 2.6 mg/dL (0.6-1.0) Estimated GFR (Cockcroft-Gault) 19.6 Glucose Level 198 mg/dL (70-99) Calcium Level 7.5 mg/dL (8.5-10.1) Phosphorus Level 2.5 mg/dL (2.6-4.7) Magnesium Level 2.2 mg/dL (1.8-2.4) Test 07/12/19 00:05 07/12/19 05:15 07/12/19 05:49 07/12/19 08:05 Glucose (Fingerstick) 222 mg/dL (70-99) 217 mg/dL (70-99) White Blood Count 20.5 x10^3/uL (4.0-11.0) Red Blood Count 2.52 x10^6/uL (3.50-5.40) Hemoglobin 8.3 g/dL (12.0-15.5) Hematocrit 24.4 % (36.0-47.0) Mean Corpuscular Volume 97 fL (79-100) Mean Corpuscular Hemoglobin 33 pg (25-35) Mean Corpuscular Hemoglobin Concent 34 g/dL (31-37) Red Cell Distribution Width 13.1 % (11.5-14.5) Platelet Count 242 x10^3/uL (140-400) Neutrophils (%) (Auto) 93 % (31-73) Lymphocytes (%) (Auto) 2 % (24-48) Monocytes (%) (Auto) 3 % (0-9) Eosinophils (%) (Auto) 2 % (0-3) Basophils (%) (Auto) 0 % (0-3) Neutrophils # (Auto) 19.1 x10^3/uL (1.8-7.7) Lymphocytes # (Auto) 0.4 x10^3/uL (1.0-4.8) Monocytes # (Auto) 0.6 x10^3/uL (0.0-1.1) Eosinophils # (Auto) 0.4 x10^3/uL (0.0-0.7) Basophils # (Auto) 0.1 x10^3/uL (0.0-0.2) Sodium Level 137 mmol/L (136-145) Potassium Level 3.3 mmol/L (3.5-5.1) Chloride Level 101 mmol/L (98-107) Carbon Dioxide Level 30 mmol/L (21-32) Anion Gap 6 (6-14) Blood Urea Nitrogen 32 mg/dL (7-20) Creatinine 2.2 mg/dL (0.6-1.0) Estimated GFR (Cockcroft-Gault) 23.7 Glucose Level 239 mg/dL (70-99) Calcium Level 7.5 mg/dL (8.5-10.1) Phosphorus Level 2.2 mg/dL (2.6-4.7) Magnesium Level 2.2 mg/dL (1.8-2.4) Thyroid Stimulating Hormone (TSH) 1.091 uIU/mL (0.358-3.74) O2 Saturation 99 % (92-99) Arterial Blood pH 7.47 (7.35-7.45) Arterial Blood pCO2 at Patient Temp 34 mmHg (35-46) Arterial Blood pO2 at Patient Temp 161 mmHg (75-108) Arterial Blood HCO3 24 mmol/L (21-28) Arterial Blood Base Excess 1 mmol/L (-3-3) FiO2 90 Test 07/12/19 12:53 07/12/19 16:30 07/13/19 00:02 07/13/19 00:55 Glucose (Fingerstick) 225 mg/dL (70-99) 274 mg/dL (70-99) Sodium Level 139 mmol/L (136-145) 139 mmol/L (136-145) Potassium Level 3.7 mmol/L (3.5-5.1) 3.7 mmol/L (3.5-5.1) Chloride Level 103 mmol/L (98-107) 103 mmol/L (98-107) Carbon Dioxide Level 29 mmol/L (21-32) 23 mmol/L (21-32) Anion Gap 7 (6-14) 13 (6-14) Blood Urea Nitrogen 36 mg/dL (7-20) 42 mg/dL (7-20) Creatinine 2.1 mg/dL (0.6-1.0) 2.2 mg/dL (0.6-1.0) Estimated GFR (Cockcroft-Gault) 25.0 23.7 Glucose Level 280 mg/dL (70-99) 274 mg/dL (70-99) Calcium Level 7.2 mg/dL (8.5-10.1) 7.7 mg/dL (8.5-10.1) Phosphorus Level 2.5 mg/dL (2.6-4.7) 2.4 mg/dL (2.6-4.7) Magnesium Level 2.3 mg/dL (1.8-2.4) 2.3 mg/dL (1.8-2.4) Test 07/13/19 06:00 07/13/19 08:00 07/13/19 08:55 White Blood Count 26.3 x10^3/uL (4.0-11.0) Red Blood Count 2.41 x10^6/uL (3.50-5.40) Hemoglobin 7.8 g/dL (12.0-15.5) Hematocrit 23.6 % (36.0-47.0) Mean Corpuscular Volume 98 fL (79-100) Mean Corpuscular Hemoglobin 33 pg (25-35) Mean Corpuscular Hemoglobin Concent 33 g/dL (31-37) Red Cell Distribution Width 13.4 % (11.5-14.5) Platelet Count 292 x10^3/uL (140-400) Neutrophils (%) (Auto) 90 % (31-73) Lymphocytes (%) (Auto) 4 % (24-48) Monocytes (%) (Auto) 5 % (0-9) Eosinophils (%) (Auto) 1 % (0-3) Basophils (%) (Auto) 0 % (0-3) Neutrophils # (Auto) 23.8 x10^3/uL (1.8-7.7) Lymphocytes # (Auto) 1.0 x10^3/uL (1.0-4.8) Monocytes # (Auto) 1.2 x10^3/uL (0.0-1.1) Eosinophils # (Auto) 0.3 x10^3/uL (0.0-0.7) Basophils # (Auto) 0.0 x10^3/uL (0.0-0.2) Segmented Neutrophils % 73 % (35-66) Band Neutrophils % 19 % (0-9) Lymphocytes % 3 % (24-48) Monocytes % 1 % (0-10) Metamyelocytes % 3 % (0-0) Myelocytes % 1 % (0-0) Toxic Granulation Slight Dohle Bodies Few Platelet Estimate Adequate (ADEQUATE) Sodium Level 137 mmol/L (136-145) Potassium Level 3.6 mmol/L (3.5-5.1) Chloride Level 103 mmol/L (98-107) Carbon Dioxide Level 26 mmol/L (21-32) Anion Gap 8 (6-14) Blood Urea Nitrogen 50 mg/dL (7-20) Creatinine 2.7 mg/dL (0.6-1.0) Estimated GFR (Cockcroft-Gault) 18.7 BUN/Creatinine Ratio 19 (6-20) Glucose Level 270 mg/dL (70-99) Calcium Level 7.5 mg/dL (8.5-10.1) Phosphorus Level 2.3 mg/dL (2.6-4.7) Magnesium Level 2.3 mg/dL (1.8-2.4) Total Bilirubin 0.4 mg/dL (0.2-1.0) Aspartate Amino Transf (AST/SGOT) 27 U/L (15-37) Alanine Aminotransferase (ALT/SGPT) 12 U/L (14-59) Alkaline Phosphatase 82 U/L (46-116) Total Protein 4.3 g/dL (6.4-8.2) Albumin 1.4 g/dL (3.4-5.0) Albumin/Globulin Ratio 0.5 (1.0-1.7) Lactic Acid Level 1.4 mmol/L (0.4-2.0) O2 Saturation 97 % (92-99) Arterial Blood pH 7.45 (7.35-7.45) Arterial Blood pCO2 at Patient Temp 32 mmHg (35-46) Arterial Blood pO2 at Patient Temp 99 mmHg (75-108) Arterial Blood HCO3 22 mmol/L (21-28) Arterial Blood Base Excess -2 mmol/L (-3-3) FiO2 40 Laboratory Tests Test 07/12/19 16:30 07/13/19 00:02 07/13/19 00:55 07/13/19 06:00 Sodium Level 139 mmol/L (136-145) 139 mmol/L (136-145) 137 mmol/L (136-145) Potassium Level 3.7 mmol/L (3.5-5.1) 3.7 mmol/L (3.5-5.1) 3.6 mmol/L (3.5-5.1) Chloride Level 103 mmol/L (98-107) 103 mmol/L (98-107) 103 mmol/L (98-107) Carbon Dioxide Level 29 mmol/L (21-32) 23 mmol/L (21-32) 26 mmol/L (21-32) Anion Gap 7 (6-14) 13 (6-14) 8 (6-14) Blood Urea Nitrogen 36 mg/dL (7-20) 42 mg/dL (7-20) 50 mg/dL (7-20) Creatinine 2.1 mg/dL (0.6-1.0) 2.2 mg/dL (0.6-1.0) 2.7 mg/dL (0.6-1.0) Estimated GFR (Cockcroft-Gault) 25.0 23.7 18.7 Glucose Level 280 mg/dL (70-99) 274 mg/dL (70-99) 270 mg/dL (70-99) Calcium Level 7.2 mg/dL (8.5-10.1) 7.7 mg/dL (8.5-10.1) 7.5 mg/dL (8.5-10.1) Phosphorus Level 2.5 mg/dL (2.6-4.7) 2.4 mg/dL (2.6-4.7) 2.3 mg/dL (2.6-4.7) Magnesium Level 2.3 mg/dL (1.8-2.4) 2.3 mg/dL (1.8-2.4) 2.3 mg/dL (1.8-2.4) Glucose (Fingerstick) 274 mg/dL (70-99) White Blood Count 26.3 x10^3/uL (4.0-11.0) Red Blood Count 2.41 x10^6/uL (3.50-5.40) Hemoglobin 7.8 g/dL (12.0-15.5) Hematocrit 23.6 % (36.0-47.0) Mean Corpuscular Volume 98 fL (79-100) Mean Corpuscular Hemoglobin 33 pg (25-35) Mean Corpuscular Hemoglobin Concent 33 g/dL (31-37) Red Cell Distribution Width 13.4 % (11.5-14.5) Platelet Count 292 x10^3/uL (140-400) Neutrophils (%) (Auto) 90 % (31-73) Lymphocytes (%) (Auto) 4 % (24-48) Monocytes (%) (Auto) 5 % (0-9) Eosinophils (%) (Auto) 1 % (0-3) Basophils (%) (Auto) 0 % (0-3) Neutrophils # (Auto) 23.8 x10^3/uL (1.8-7.7) Lymphocytes # (Auto) 1.0 x10^3/uL (1.0-4.8) Monocytes # (Auto) 1.2 x10^3/uL (0.0-1.1) Eosinophils # (Auto) 0.3 x10^3/uL (0.0-0.7) Basophils # (Auto) 0.0 x10^3/uL (0.0-0.2) Segmented Neutrophils % 73 % (35-66) Band Neutrophils % 19 % (0-9) Lymphocytes % 3 % (24-48) Monocytes % 1 % (0-10) Metamyelocytes % 3 % (0-0) Myelocytes % 1 % (0-0) Toxic Granulation Slight Dohle Bodies Few Platelet Estimate Adequate (ADEQUATE) BUN/Creatinine Ratio 19 (6-20) Total Bilirubin 0.4 mg/dL (0.2-1.0) Aspartate Amino Transf (AST/SGOT) 27 U/L (15-37) Alanine Aminotransferase (ALT/SGPT) 12 U/L (14-59) Alkaline Phosphatase 82 U/L (46-116) Total Protein 4.3 g/dL (6.4-8.2) Albumin 1.4 g/dL (3.4-5.0) Albumin/Globulin Ratio 0.5 (1.0-1.7) Test 07/13/19 08:00 07/13/19 08:55 Lactic Acid Level 1.4 mmol/L (0.4-2.0) O2 Saturation 97 % (92-99) Arterial Blood pH 7.45 (7.35-7.45) Arterial Blood pCO2 at Patient Temp 32 mmHg (35-46) Arterial Blood pO2 at Patient Temp 99 mmHg (75-108) Arterial Blood HCO3 22 mmol/L (21-28) Arterial Blood Base Excess -2 mmol/L (-3-3) FiO2 40 Medications Active Scripts Medications Dose Route/Sig Max Daily Dose Days Date Category Bisoprolol Fumarate 5 Mg Tablet 10 Mg PO DAILY 07/04/19 Reported Comments 07/12 cxr poor insp film interstitial prominence/ left basal effusion Impression . IMPRESSION: 1. Acute hypoxemic respiratory failure secondary to acute pancreatitis, sepsis, abdominal distention, and pneumonia. 2. Gallstone pancreatitis. WITH NECROSIS 3. Severe metabolic acidosis. 4. Acute kidney injury. ON CRRT 5. Acute gallstone pancreatitis. 6. Hypoalbuminemia. 7. Hypocalcemia. 8. Leukocytosis 9. Chronic anemia Plan . AC mode , 100% FIO2/ 10 PEEP ABG noted ( they are actually on 100%FIO2) Poor prognosis/ ARDS supportive care CRRT Repeat CT once stable Antibiotics per ID Follow surgery input Follow nephrology input Nutritional support with TPN Prognosis is extremely poor d/w RN/RT cct 30 min VINAYAK LANDRUM MD Jul 13, 2019 15:20
[2019-07-13 15:35] LABS: CALCIUM 7.4 mg/dL (8.5-10.1); CREATININE 2.5 mg/dL (0.6-1.0); GFR 20.5; MAGNESIUM 2.2 mg/dL (1.8-2.4); PHOSPHORUS 3.9 mg/dL (2.6-4.7); POTASSIUM 3.8 mmol/L (3.5-5.1)
--- NOTE | 2019-07-13 16:13 | NUR ---
SS following up with discharge planning. SS discussed with pt RN. Pt remains on the vent and CRRT at this time. Not medically stable. SS will continue to follow for discharge planning.
[2019-07-13 21:25] LABS: CALCIUM 7.5 mg/dL (8.5-10.1); GFR 26.5; MAGNESIUM 2.3 mg/dL (1.8-2.4); PHOSPHORUS 3.6 mg/dL (2.6-4.7); POTASSIUM 3.7 mmol/L (3.5-5.1)
[2019-07-13] MEDS ORDERED: DEXTROSE 70% IV SCH ×10 (22:00)
[2019-07-13] MEDS ORDERED: AMINO ACID IV SCH ×10 (22:00)
[2019-07-13] MEDS ORDERED: TOTAL PARENTERAL NUTRITION IV SCH ×10 (22:00)
[2019-07-13] MEDS ORDERED: [UNRECOGNIZED DRUG - OTHER] IV SCH ×10 (22:00)
--- NOTE | 2019-07-13 23:07 | NUR ---
Around 2129 CRRT alarming for high TMP, patient fluid removal decreased from 400 to 300 and system was flushed. TMP remained high and fluid removal ultimately was decreased to 100. Dialysis nurse called at 2144 to see if any other interventions could be completed. Dialysis said continue to flush system and adjust fluid removal as tolerated. Dialysis nurse also said since patient is restart in AM there is no need to call if the machine does clot off. TMP continued to rise and clotted off at 2229. Blood was returned to patient and patient was disconnected from system.
[2019-07-14] VITALS (29 sets, daily range): BP systolic 79–120; BP diastolic 42–77
[2019-07-14] MEDS: METOPROLOL TARTRATE 5 MG/5 ML VIAL. IVP SCH ×5 (00:12→23:33)
[2019-07-14] MEDS: INSULIN LISPRO 300 UNITS/3 ML VIAL. SQ SCH ×5 (00:24→23:26)
[2019-07-14] MEDS: POTASSIUM CHLORIDE 20 MEQ in DIALYSIS SOLUTION BGK 0/2.5 5,000 ML IV SCH ×17 (00:25→22:06)
[2019-07-14] MEDS: ACETAMINOPHEN 650 MG SUPP.RECT. PR PRN (00:34)
[2019-07-14] MEDS: ACETAMINOPHEN 650 MG/20.3 ML SOLUTION. PEG PRN ×2 (00:39→07:35)
[2019-07-14] MEDS: NOREPINEPHRINE VIAL 8 MG in IV DEXTROSE 5% 250 ML IV PRN (01:42)
[2019-07-14] MEDS: MIDAZOLAM HCL 50 MG in IV NORMAL SALINE 50ML 50 ML IV PRN ×3 (04:56→22:39)
[2019-07-14] MEDS: HEPARIN for SUB-Q USE 5,000 UNIT/ML VIAL. SQ SCH ×3 (05:35→22:00)
[2019-07-14 05:47] LABS: BASO # 0.1 x10^3/uL (0.0-0.2); BASO % 0 % (0-3); EOS # 0.3 x10^3/uL (0.0-0.7); EOS % 1 % (0-3); LYMPH # 1.2 x10^3/uL (1.0-4.8); LYMPH % 5 % (24-48); MEAN CORPUSCULAR HEMOGLOBIN 33 pg (25-35); MEAN CORPUSCULAR HGB CONC 34 g/dL (31-37); MEAN CORPUSCULAR VOLUME 98 fL (79-100); MONO % 4 % (0-9); NEUT # 21.2 x10^3/uL (1.8-7.7); NEUT % 89 % (31-73); PLATELET COUNT 274 x10^3/uL (140-400); RED BLOOD COUNT 1.97 x10^6/uL (3.50-5.40); RED CELL DISTRIBUTION WIDTH 13.8 % (11.5-14.5); WHITE BLOOD COUNT 23.8 x10^3/uL (4.0-11.0)
[2019-07-14 06:08] LABS: ALBUMIN 1.9 g/dL (3.4-5.0); ALBUMIN/GLOBULIN RATIO 0.8 (1.0-1.7); CALCIUM 7.7 mg/dL (8.5-10.1); CREATININE 2.5 mg/dL (0.6-1.0); GFR 20.5; POTASSIUM 3.8 mmol/L (3.5-5.1); TOTAL BILIRUBIN 0.6 mg/dL (0.2-1.0); TOTAL PROTEIN 4.3 g/dL (6.4-8.2)
[2019-07-14 06:40] LABS: HEMOGLOBIN 6.5 g/dL (12.0-15.5)
[2019-07-14 06:41] LABS: HEMATOCRIT 19.3 % (36.0-47.0)
--- NOTE | 2019-07-14 07:27 | RAD ---
EXAM: CHEST 1 VIEW History: Intubation COMPARISON: 07/13/2019 TECHNIQUE: Single portable radiograph of the chest Findings/ impression: The ET tube, feeding tube, right-sided PICC line, left-sided internal jugular line, dialysis catheter in place. Moderate prominent appearing bilateral interstitial lung markings likely congestive changes with small bilateral pleural effusions. Electronically signed by: Priyank Delgado MD (07/14/2019 7:25 AM) [id number]
[2019-07-14 07:55] LABS: BASE EXCESS ABG -3 mmol/L (-3-3); HCO3 ABG 21 mmol/L (21-28); PCO2 ABG 32 mmHg (35-46); PO2 ABG 94 mmHg (75-108); SAT O2 ABG 96 % (92-99)
[2019-07-14 07:58] LABS: FIO2 ABG 40%
[2019-07-14] MEDS: PANTOPRAZOLE IV PUSH 40 MG VIAL. IVP SCH (08:21)
[2019-07-14] MEDS: MICAFUNGIN 100 MG in IV DEXTROSE 5% 100ML 100 ML IV SCH (08:28)
[2019-07-14] MEDS: CEFEPIME HCL IV Push 2 GM VIAL. IVP SCH ×2 (08:28→21:03)
--- NOTE | 2019-07-14 08:56 | NUR ---
here to see patient. Pointed out new rhythmic movement of patient's head that appears to be seizure-like activity. Consult for Neurology. Dr. Shipman's office notified.
--- NOTE | 2019-07-14 09:04 | PDOC ---
Infectious Disease Note Subjective Subjective Fever Tmax 102.7 Intubated FiO2 40% PEEP 8 On Levophed gtt this am - dose varies currently about 3 to 4 mics TPN Vital Sign Vital Signs Vital Signs Date Time Temp Pulse Resp B/P (MAP) Pulse Ox O2 Delivery O2 Flow Rate FiO2 07/14/19 07:43 100 Ventilator 07/14/19 06:00 119 25 104/50 (68) 07/14/19 04:00 101.2 101.2 07/13/19 17:59 6.0 Physical Exam PHYSICAL EXAM GENERAL:Intubated/sedated HEENT: Mild icterus. Oral mucosa very dry. NECK: Supple. LUNGS: Decreased breath sounds at the bases. HEART: S1, S2, tachycardia, 120s, regular ABDOMEN: Distended, + BS. Rectal tube in place - soft : Lind EXTREMITIES: Trace edema, no cyanosis - less mottled but and toes appear nonischemic.today - Rooke boots in place DERMATOLOGIC: Warm and dry. No generalized rash. CENTRAL NERVOUS SYSTEM: Intubated - rhythmic movements of head IV: RIJ Temp HDC & RUE PICC - Left IJ Labs Lab Laboratory Tests Test 07/13/19 08:55 07/13/19 15:00 07/13/19 17:38 07/13/19 21:00 O2 Saturation 97 % (92-99) Arterial Blood pH 7.45 (7.35-7.45) Arterial Blood pCO2 at Patient Temp 32 mmHg (35-46) Arterial Blood pO2 at Patient Temp 99 mmHg (75-108) Arterial Blood HCO3 22 mmol/L (21-28) Arterial Blood Base Excess -2 mmol/L (-3-3) FiO2 40 Sodium Level 141 mmol/L (136-145) 138 mmol/L (136-145) Potassium Level 3.8 mmol/L (3.5-5.1) 3.7 mmol/L (3.5-5.1) Chloride Level 104 mmol/L (98-107) 104 mmol/L (98-107) Carbon Dioxide Level 25 mmol/L (21-32) 27 mmol/L (21-32) Anion Gap 12 (6-14) 7 (6-14) Blood Urea Nitrogen 49 mg/dL (7-20) 44 mg/dL (7-20) Creatinine 2.5 mg/dL (0.6-1.0) 2.0 mg/dL (0.6-1.0) Estimated GFR (Cockcroft-Gault) 20.5 26.5 Glucose Level 290 mg/dL (70-99) 195 mg/dL (70-99) Calcium Level 7.4 mg/dL (8.5-10.1) 7.5 mg/dL (8.5-10.1) Phosphorus Level 3.9 mg/dL (2.6-4.7) 3.6 mg/dL (2.6-4.7) Magnesium Level 2.2 mg/dL (1.8-2.4) 2.3 mg/dL (1.8-2.4) Glucose (Fingerstick) 253 mg/dL (70-99) Test 07/14/19 00:20 07/14/19 05:20 07/14/19 05:32 07/14/19 07:45 Glucose (Fingerstick) 210 mg/dL (70-99) 269 mg/dL (70-99) White Blood Count 23.8 x10^3/uL (4.0-11.0) Red Blood Count 1.97 x10^6/uL (3.50-5.40) Hemoglobin 6.5 g/dL (12.0-15.5) Hematocrit 19.3 % (36.0-47.0) Mean Corpuscular Volume 98 fL (79-100) Mean Corpuscular Hemoglobin 33 pg (25-35) Mean Corpuscular Hemoglobin Concent 34 g/dL (31-37) Red Cell Distribution Width 13.8 % (11.5-14.5) Platelet Count 274 x10^3/uL (140-400) Neutrophils (%) (Auto) 89 % (31-73) Lymphocytes (%) (Auto) 5 % (24-48) Monocytes (%) (Auto) 4 % (0-9) Eosinophils (%) (Auto) 1 % (0-3) Basophils (%) (Auto) 0 % (0-3) Neutrophils # (Auto) 21.2 x10^3/uL (1.8-7.7) Lymphocytes # (Auto) 1.2 x10^3/uL (1.0-4.8) Monocytes # (Auto) 1.0 x10^3/uL (0.0-1.1) Eosinophils # (Auto) 0.3 x10^3/uL (0.0-0.7) Basophils # (Auto) 0.1 x10^3/uL (0.0-0.2) Sodium Level 137 mmol/L (136-145) Potassium Level 3.8 mmol/L (3.5-5.1) Chloride Level 103 mmol/L (98-107) Carbon Dioxide Level 22 mmol/L (21-32) Anion Gap 12 (6-14) Blood Urea Nitrogen 59 mg/dL (7-20) Creatinine 2.5 mg/dL (0.6-1.0) Estimated GFR (Cockcroft-Gault) 20.5 BUN/Creatinine Ratio 24 (6-20) Glucose Level 279 mg/dL (70-99) Calcium Level 7.7 mg/dL (8.5-10.1) Total Bilirubin 0.6 mg/dL (0.2-1.0) Aspartate Amino Transf (AST/SGOT) 37 U/L (15-37) Alanine Aminotransferase (ALT/SGPT) 16 U/L (14-59) Alkaline Phosphatase 83 U/L (46-116) Total Protein 4.3 g/dL (6.4-8.2) Albumin 1.9 g/dL (3.4-5.0) Albumin/Globulin Ratio 0.8 (1.0-1.7) O2 Saturation 96 % (92-99) Arterial Blood pH 7.43 (7.35-7.45) Arterial Blood pCO2 at Patient Temp 32 mmHg (35-46) Arterial Blood pO2 at Patient Temp 94 mmHg (75-108) Arterial Blood HCO3 21 mmol/L (21-28) Arterial Blood Base Excess -3 mmol/L (-3-3) FiO2 40% Micro STAT CXR and KUB reviewed on 07/10 Microbiology 07/06/19 Blood Culture - Final, Complete NO GROWTH AFTER 5 DAYS Objective Assessment Fever - 102.7 currently ? reactive with pancreatitis vs ID - C-diff neg. S/p HD cath change with malfunction 07/12 - cults neg Hypotension better- levophed started am 07/10 down to about 3 to 4 mics Leukocytosis - better Anemia ? developing peripheral ischemia - better Acute pancreatitis, early developing necrosis Cholelithiasis JUANA,Hyperkalemia, Metabolic acidosis on CRRT Acute hypoxic resp failure, intubated Hypocalcemia Prediabetes HTN 07/12 Impression: Replacement of a right internal jugular temporary dialysis catheter over a guidewire Plan Plan of Care Consult Neurology Abd U/S Influenza screen F/u Blood cults 07/11 CT ordered but on CRRT will need when stable Add Flagyl and Micafungin 07/10 Will D/c Meropenem with fever and Leukocytosis Dose Cefepime and Dapto 07/12 Cont Zyvox (07/07) f/u labs and cults No surgical plans at this time Electrolytes per primary Critically ill D/w nursing WILLY BARAKAT MD Jul 14, 2019 09:04
--- NOTE | 2019-07-14 09:30 | PDOC ---
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 CASHIER HOST/HOSTESS 07/14/19 0930: SURGICAL PROGRESS NOTE Subjective d/w nurse--fevers 102 on levo Vital Signs Vital Signs Date Time Temp Pulse Resp B/P (MAP) Pulse Ox O2 Delivery O2 Flow Rate FiO2 07/14/19 09:00 109 26 109/47 (67) 100 Ventilator 07/14/19 08:00 102.7 102.7 07/13/19 17:59 6.0 I&O Intake and Output 07/14/19 07:00 Intake Total 3030.6667 ml Output Total 580 ml Balance 2450.6667 ml IV Total 3030.6667 ml Output Urine Total 330 ml Stool Total 50 ml Gastric Drainage Total 200 ml General: Other (sedated ) HEENT: Other (vent) Abdomen: Soft Labs Laboratory Tests Test 07/12/19 12:53 07/12/19 16:30 07/13/19 00:02 07/13/19 00:55 Glucose (Fingerstick) 225 mg/dL (70-99) 274 mg/dL (70-99) Sodium Level 139 mmol/L (136-145) 139 mmol/L (136-145) Potassium Level 3.7 mmol/L (3.5-5.1) 3.7 mmol/L (3.5-5.1) Chloride Level 103 mmol/L (98-107) 103 mmol/L (98-107) Carbon Dioxide Level 29 mmol/L (21-32) 23 mmol/L (21-32) Anion Gap 7 (6-14) 13 (6-14) Blood Urea Nitrogen 36 mg/dL (7-20) 42 mg/dL (7-20) Creatinine 2.1 mg/dL (0.6-1.0) 2.2 mg/dL (0.6-1.0) Estimated GFR (Cockcroft-Gault) 25.0 23.7 Glucose Level 280 mg/dL (70-99) 274 mg/dL (70-99) Calcium Level 7.2 mg/dL (8.5-10.1) 7.7 mg/dL (8.5-10.1) Phosphorus Level 2.5 mg/dL (2.6-4.7) 2.4 mg/dL (2.6-4.7) Magnesium Level 2.3 mg/dL (1.8-2.4) 2.3 mg/dL (1.8-2.4) Test 07/13/19 06:00 07/13/19 08:00 07/13/19 08:55 07/13/19 15:00 White Blood Count 26.3 x10^3/uL (4.0-11.0) Red Blood Count 2.41 x10^6/uL (3.50-5.40) Hemoglobin 7.8 g/dL (12.0-15.5) Hematocrit 23.6 % (36.0-47.0) Mean Corpuscular Volume 98 fL (79-100) Mean Corpuscular Hemoglobin 33 pg (25-35) Mean Corpuscular Hemoglobin Concent 33 g/dL (31-37) Red Cell Distribution Width 13.4 % (11.5-14.5) Platelet Count 292 x10^3/uL (140-400) Neutrophils (%) (Auto) 90 % (31-73) Lymphocytes (%) (Auto) 4 % (24-48) Monocytes (%) (Auto) 5 % (0-9) Eosinophils (%) (Auto) 1 % (0-3) Basophils (%) (Auto) 0 % (0-3) Neutrophils # (Auto) 23.8 x10^3/uL (1.8-7.7) Lymphocytes # (Auto) 1.0 x10^3/uL (1.0-4.8) Monocytes # (Auto) 1.2 x10^3/uL (0.0-1.1) Eosinophils # (Auto) 0.3 x10^3/uL (0.0-0.7) Basophils # (Auto) 0.0 x10^3/uL (0.0-0.2) Segmented Neutrophils % 73 % (35-66) Band Neutrophils % 19 % (0-9) Lymphocytes % 3 % (24-48) Monocytes % 1 % (0-10) Metamyelocytes % 3 % (0-0) Myelocytes % 1 % (0-0) Toxic Granulation Slight Dohle Bodies Few Platelet Estimate Adequate (ADEQUATE) Sodium Level 137 mmol/L (136-145) 141 mmol/L (136-145) Potassium Level 3.6 mmol/L (3.5-5.1) 3.8 mmol/L (3.5-5.1) Chloride Level 103 mmol/L (98-107) 104 mmol/L (98-107) Carbon Dioxide Level 26 mmol/L (21-32) 25 mmol/L (21-32) Anion Gap 8 (6-14) 12 (6-14) Blood Urea Nitrogen 50 mg/dL (7-20) 49 mg/dL (7-20) Creatinine 2.7 mg/dL (0.6-1.0) 2.5 mg/dL (0.6-1.0) Estimated GFR (Cockcroft-Gault) 18.7 20.5 BUN/Creatinine Ratio 19 (6-20) Glucose Level 270 mg/dL (70-99) 290 mg/dL (70-99) Calcium Level 7.5 mg/dL (8.5-10.1) 7.4 mg/dL (8.5-10.1) Phosphorus Level 2.3 mg/dL (2.6-4.7) 3.9 mg/dL (2.6-4.7) Magnesium Level 2.3 mg/dL (1.8-2.4) 2.2 mg/dL (1.8-2.4) Total Bilirubin 0.4 mg/dL (0.2-1.0) Aspartate Amino Transf (AST/SGOT) 27 U/L (15-37) Alanine Aminotransferase (ALT/SGPT) 12 U/L (14-59) Alkaline Phosphatase 82 U/L (46-116) Total Protein 4.3 g/dL (6.4-8.2) Albumin 1.4 g/dL (3.4-5.0) Albumin/Globulin Ratio 0.5 (1.0-1.7) Lactic Acid Level 1.4 mmol/L (0.4-2.0) O2 Saturation 97 % (92-99) Arterial Blood pH 7.45 (7.35-7.45) Arterial Blood pCO2 at Patient Temp 32 mmHg (35-46) Arterial Blood pO2 at Patient Temp 99 mmHg (75-108) Arterial Blood HCO3 22 mmol/L (21-28) Arterial Blood Base Excess -2 mmol/L (-3-3) FiO2 40 Test 07/13/19 17:38 07/13/19 21:00 07/14/19 00:20 3/26/20 05:20 Glucose (Fingerstick) 253 mg/dL (70-99) 210 mg/dL (70-99) Sodium Level 138 mmol/L (136-145) 137 mmol/L (136-145) Potassium Level 3.7 mmol/L (3.5-5.1) 3.8 mmol/L (3.5-5.1) Chloride Level 104 mmol/L (98-107) 103 mmol/L (98-107) Carbon Dioxide Level 27 mmol/L (21-32) 22 mmol/L (21-32) Anion Gap 7 (6-14) 12 (6-14) Blood Urea Nitrogen 44 mg/dL (7-20) 59 mg/dL (7-20) Creatinine 2.0 mg/dL (0.6-1.0) 2.5 mg/dL (0.6-1.0) Estimated GFR (Cockcroft-Gault) 26.5 20.5 Glucose Level 195 mg/dL (70-99) 279 mg/dL (70-99) Calcium Level 7.5 mg/dL (8.5-10.1) 7.7 mg/dL (8.5-10.1) Phosphorus Level 3.6 mg/dL (2.6-4.7) Magnesium Level 2.3 mg/dL (1.8-2.4) White Blood Count 23.8 x10^3/uL (4.0-11.0) Red Blood Count 1.97 x10^6/uL (3.50-5.40) Hemoglobin 6.5 g/dL (12.0-15.5) Hematocrit 19.3 % (36.0-47.0) Mean Corpuscular Volume 98 fL (79-100) Mean Corpuscular Hemoglobin 33 pg (25-35) Mean Corpuscular Hemoglobin Concent 34 g/dL (31-37) Red Cell Distribution Width 13.8 % (11.5-14.5) Platelet Count 274 x10^3/uL (140-400) Neutrophils (%) (Auto) 89 % (31-73) Lymphocytes (%) (Auto) 5 % (24-48) Monocytes (%) (Auto) 4 % (0-9) Eosinophils (%) (Auto) 1 % (0-3) Basophils (%) (Auto) 0 % (0-3) Neutrophils # (Auto) 21.2 x10^3/uL (1.8-7.7) Lymphocytes # (Auto) 1.2 x10^3/uL (1.0-4.8) Monocytes # (Auto) 1.0 x10^3/uL (0.0-1.1) Eosinophils # (Auto) 0.3 x10^3/uL (0.0-0.7) Basophils # (Auto) 0.1 x10^3/uL (0.0-0.2) BUN/Creatinine Ratio 24 (6-20) Total Bilirubin 0.6 mg/dL (0.2-1.0) Aspartate Amino Transf (AST/SGOT) 37 U/L (15-37) Alanine Aminotransferase (ALT/SGPT) 16 U/L (14-59) Alkaline Phosphatase 83 U/L (46-116) Total Protein 4.3 g/dL (6.4-8.2) Albumin 1.9 g/dL (3.4-5.0) Albumin/Globulin Ratio 0.8 (1.0-1.7) Test 07/14/19 05:32 07/14/19 07:45 Glucose (Fingerstick) 269 mg/dL (70-99) O2 Saturation 96 % (92-99) Arterial Blood pH 7.43 (7.35-7.45) Arterial Blood pCO2 at Patient Temp 32 mmHg (35-46) Arterial Blood pO2 at Patient Temp 94 mmHg (75-108) Arterial Blood HCO3 21 mmol/L (21-28) Arterial Blood Base Excess -3 mmol/L (-3-3) FiO2 40% Laboratory Tests Test 07/13/19 15:00 07/13/19 17:38 07/13/19 21:00 07/14/19 00:20 Sodium Level 141 mmol/L (136-145) 138 mmol/L (136-145) Potassium Level 3.8 mmol/L (3.5-5.1) 3.7 mmol/L (3.5-5.1) Chloride Level 104 mmol/L (98-107) 104 mmol/L (98-107) Carbon Dioxide Level 25 mmol/L (21-32) 27 mmol/L (21-32) Anion Gap 12 (6-14) 7 (6-14) Blood Urea Nitrogen 49 mg/dL (7-20) 44 mg/dL (7-20) Creatinine 2.5 mg/dL (0.6-1.0) 2.0 mg/dL (0.6-1.0) Estimated GFR (Cockcroft-Gault) 20.5 26.5 Glucose Level 290 mg/dL (70-99) 195 mg/dL (70-99) Calcium Level 7.4 mg/dL (8.5-10.1) 7.5 mg/dL (8.5-10.1) Phosphorus Level 3.9 mg/dL (2.6-4.7) 3.6 mg/dL (2.6-4.7) Magnesium Level 2.2 mg/dL (1.8-2.4) 2.3 mg/dL (1.8-2.4) Glucose (Fingerstick) 253 mg/dL (70-99) 210 mg/dL (70-99) Test 07/14/19 05:20 07/14/19 05:32 07/14/19 07:45 White Blood Count 23.8 x10^3/uL (4.0-11.0) Red Blood Count 1.97 x10^6/uL (3.50-5.40) Hemoglobin 6.5 g/dL (12.0-15.5) Hematocrit 19.3 % (36.0-47.0) Mean Corpuscular Volume 98 fL (79-100) Mean Corpuscular Hemoglobin 33 pg (25-35) Mean Corpuscular Hemoglobin Concent 34 g/dL (31-37) Red Cell Distribution Width 13.8 % (11.5-14.5) Platelet Count 274 x10^3/uL (140-400) Neutrophils (%) (Auto) 89 % (31-73) Lymphocytes (%) (Auto) 5 % (24-48) Monocytes (%) (Auto) 4 % (0-9) Eosinophils (%) (Auto) 1 % (0-3) Basophils (%) (Auto) 0 % (0-3) Neutrophils # (Auto) 21.2 x10^3/uL (1.8-7.7) Lymphocytes # (Auto) 1.2 x10^3/uL (1.0-4.8) Monocytes # (Auto) 1.0 x10^3/uL (0.0-1.1) Eosinophils # (Auto) 0.3 x10^3/uL (0.0-0.7) Basophils # (Auto) 0.1 x10^3/uL (0.0-0.2) Sodium Level 137 mmol/L (136-145) Potassium Level 3.8 mmol/L (3.5-5.1) Chloride Level 103 mmol/L (98-107) Carbon Dioxide Level 22 mmol/L (21-32) Anion Gap 12 (6-14) Blood Urea Nitrogen 59 mg/dL (7-20) Creatinine 2.5 mg/dL (0.6-1.0) Estimated GFR (Cockcroft-Gault) 20.5 BUN/Creatinine Ratio 24 (6-20) Glucose Level 279 mg/dL (70-99) Calcium Level 7.7 mg/dL (8.5-10.1) Total Bilirubin 0.6 mg/dL (0.2-1.0) Aspartate Amino Transf (AST/SGOT) 37 U/L (15-37) Alanine Aminotransferase (ALT/SGPT) 16 U/L (14-59) Alkaline Phosphatase 83 U/L (46-116) Total Protein 4.3 g/dL (6.4-8.2) Albumin 1.9 g/dL (3.4-5.0) Albumin/Globulin Ratio 0.8 (1.0-1.7) Glucose (Fingerstick) 269 mg/dL (70-99) O2 Saturation 96 % (92-99) Arterial Blood pH 7.43 (7.35-7.45) Arterial Blood pCO2 at Patient Temp 32 mmHg (35-46) Arterial Blood pO2 at Patient Temp 94 mmHg (75-108) Arterial Blood HCO3 21 mmol/L (21-28) Arterial Blood Base Excess -3 mmol/L (-3-3) FiO2 40% Problem List Problems Medical Problems: (1) Acute pancreatitis Status: Acute (2) Cholelithiasis Status: Acute Assessment/Plan severe pancreatitis supportive measures will review with DAVON Reich MD 07/14/191816: SURGICAL PROGRESS NOTE Assessment/Plan Pt seen and examined. Agree with Ms. Horton's note Pt intubated and sedated abd soft, distended cont supportive care poor surgical candidate. 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 APRN 26, 2020 09:30 DAVON SIMMS MD Jul 14, 2019 18:17
[2019-07-14] MEDS: TPN PER PHARMACY MC PRN (10:00)
--- NOTE | 2019-07-14 10:04 | NUR ---
Pharmacy TPN Dosing Note S: SCOTT AVILA is a 48 year old F Currently receiving Central Continuous TPN started 07/06/19 B:Pertinent PMH: Necrotizing pancreatitis Height: 5 feet, 8 inches Weight: 110.6 kg Current diet: NPO LABS: Sodium: 137 Potassium: 3.8 Chloride: 103 Calcium: 7.7 Corrected Calcium: 9.38 Magnesium: 2.3 CO2: 22 SCr: 2.5 Glucose: 269 Albumin: 1.9 AST: 37 ALT: 16 TPN FORMULA: TPN TYPE: Central Continuous AMINO ACIDS: 125 gm DEXTROSE: 195 gm LIPIDS: 40 gm SODIUM CHLORIDE: 90 mEq POTASSIUM CHLORIDE: 15 mEq POTASSIUM PHOSPHATE: 18 mmol MAGNESIUM: 8 mEq CALCIUM: 15 mEq MULTIPLE VITAMIN: 10 ml TRACE ELEMENTS: 0.5 ml(s) TPN PLAN: Continue same. R: Continue TPN Will monitor electrolytes, glucose, and tolerance to TPN. Raeann Mcdonnell Katya, 07/14/19 2543
--- NOTE | 2019-07-14 10:10 | PDOC ---
SUBJECTIVE ROS Intubated , On pressors OBJECTIVE Vital Signs Vital Signs Date Time Temp Pulse Resp B/P (MAP) Pulse Ox O2 Delivery O2 Flow Rate FiO2 07/14/19 09:33 100 Ventilator 07/14/19 09:00 109 26 109/47 (67) 07/14/19 08:00 102.7 102.7 07/13/19 17:59 6.0 I & 0 Intake and Output 07/14/19 07:00 Intake Total 3030.6667 ml Output Total 580 ml Balance 2450.6667 ml IV Total 3030.6667 ml Output Urine Total 330 ml Stool Total 50 ml Gastric Drainage Total 200 ml PHYSICAL EXAM Physical Exam GENERAL: Intubated on MV HEENT: Mild icterus, Intubated NECK: Supple. LUNGS: Decreased breath sounds at the bases. HEART: S1, S2, tachycardia, 110s, ABDOMEN: Distended, + BS. Rectal tube in place : Lind + EXTREMITIES: Trace edema, no cyanosis - mottled. DERMATOLOGIC: Warm and dry. No generalized rash. CENTRAL NERVOUS SYSTEM: Intubated on MV RUE-PICC, RIJ/Temp HDC & LIJ DIAGNOSIS/ASSESSMENT Assessment & Plan JUANA - ATN, oliguo-anuric, requiring [employer] intubated on 07/10 , currently on pressors initially on HD , Switched to CRRT 07/10 seen on CRRT, tolerating well (Temp HDC replaced today 2/2 nonfunctional ) Discussed with RN and Boy HyperKalemia- normal Acidosis - Bicarb Normal- on higher side , Dced IV bicarb on 07/10 Currently on TPN with bicarb HypoCalcemia- Corrected Ca normal Hypoalbuminemia- severe HypOPhos -Replace as needed Acute 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 GI, ID, and general surgery following Calculus of gallbladder with acute cholecystitis without obstruction - with secondary pancreatitis. Lap ronel is indicated, will need to await pancreatitis resolution HTN - Hypotensive currently and on pressors Sepsis - with acute pancreatitis as end organ dysfunction, sign of infection, zyvox, merrem Hypoxia with respiratory failure - intubated Discussed renal related issues with significant other on the phone , he verbalized understanding COMMENT/RELEVANT DATA Meds Current Medications Medications (Trade) Dose Ordered Sig/Yvon Start Time Stop Time Status Last Admin Dose Admin Acetaminophen (Tylenol Supp) 650 mg PRN Q6HRS PRN 07/12/19 10:30 07/12/19 10:37 650 MG Acetaminophen (Tylenol) 650 mg PRN Q6HRS PRN 07/09/19 03:36 07/14/19 07:35 650 MG Albumin Human 200 ml @ 200 mls/hr 1X ONCE 07/11/19 07:30 07/11/19 08:29 DC 07/11/19 08:51 200 MLS/HR Albuterol Sulfate (Ventolin Neb Soln) 2.5 mg 1X ONCE 07/05/19 22:30 07/05/19 22:31 DC 07/06/19 00:56 2.5 MG Artificial Tears (Artificial Tears) 1 drop PRN Q1HR PRN 07/11/19 08:15 Atenolol (Tenormin) 100 mg DAILY 07/05/19 09:00 07/04/19 20:08 DC Benzocaine (Hurricaine One) 1 spray 1X ONCE 07/08/19 14:30 07/08/19 14:31 DC 07/08/19 16:38 1 SPRAY Calcium Carbonate/ Glycine (Tums) 500 mg PRN AFTMEALHC PRN 07/06/19 17:45 Calcium Chloride 1000 mg/Sodium Chloride 110 ml @ 220 mls/hr 1X ONCE 07/05/19 22:30 07/05/19 22:59 DC 07/05/19 22:11 220 MLS/HR Calcium Chloride 3000 mg/Sodium Chloride 1,030 ml @ 50 mls/hr [id number] 07/07/19 08:00 07/09/19 15:23 DC 07/09/19 02:17 50 MLS/HR Calcium Gluconate (Calcium Gluconate) 2,000 mg 1X ONCE 07/07/19 02:15 07/07/19 02:16 DC 07/07/19 02:19 2,000 MG Calcium Gluconate 1000 mg/Sodium Chloride 110 ml @ 220 mls/hr 1X ONCE 07/06/19 03:30 07/06/19 03:59 DC 07/06/19 03:21 220 MLS/HR Calcium Gluconate 2000 mg/Sodium Chloride 120 ml @ 220 mls/hr 1X ONCE 07/06/19 07:30 07/06/19 08:02 DC 07/06/19 09:05 220 MLS/HR Cefepime HCl (Maxipime) 2 gm Q12HR 07/13/19 09:00 07/14/19 08:28 2 GM Daptomycin 500 mg/ Sodium Chloride 50 ml @ 100 mls/hr Q48H 07/13/19 08:30 07/13/19 08:45 100 MLS/HR Dextrose (Dextrose 50%-Water Syringe) 12.5 gm PRN Q15MIN PRN 07/04/19 09:30 Digoxin (Lanoxin) 125 mcg 1X ONCE 07/07/19 18:00 07/07/19 18:01 DC 07/07/19 17:10 125 MCG Diphenhydramine HCl (Benadryl) 25 mg 1X PRN PRN 07/11/19 07:30 07/12/19 07:29 DC Etomidate (Amidate) 8 mg 1X ONCE 07/11/19 08:30 07/11/19 08:31 DC 07/11/19 08:33 8 MG Fentanyl Citrate 30 ml @ 0 mls/hr CONT PRN 07/11/19 08:15 07/14/19 08:52 3.75 MLS/HR Fentanyl Citrate (Fentanyl 2ml Vial) 100 mcg STK-MED ONCE 07/04/19 03:18 07/04/19 03:18 DC Furosemide (Lasix) 40 mg 1X ONCE 07/05/19 22:30 07/05/19 22:31 DC 07/05/19 22:12 40 MG Heparin Sodium (Porcine) (Heparin Sodium) 5,000 unit Q8HRS 07/11/19 15:00 07/14/19 05:35 5,000 UNIT Hydromorphone HCl (Dilaudid) 1 mg PRN Q3HRS PRN 07/05/19 12:00 07/11/19 05:13 1 MG Info (CONTRAST GIVEN -- Rx MONITORING) 1 each PRN DAILY PRN 07/05/19 17:00 07/07/19 16:59 DC Info (PHARMACY MONITORING -- do not chart) 1 each PRN DAILY PRN 07/11/19 07:30 Info (Tpn Per Pharmacy) 1 each PRN DAILY PRN 07/06/19 12:30 UNV Insulin Human Lispro (HumaLOG) 0-9 UNITS Q6HRS 07/04/19 09:30 07/14/19 05:35 7 UNITS Insulin Human Regular (HumuLIN R VIAL) 5 unit 1X ONCE 07/05/19 22:30 07/05/19 22:31 DC 07/05/19 22:14 5 UNIT Iohexol (Omnipaque 300 Mg/ml) 60 ml 1X ONCE 07/05/19 17:00 07/05/19 17:01 DC 07/05/19 17:20 60 ML Iohexol (Omnipaque 350 Mg/ml) 90 ml 1X ONCE 07/04/19 03:30 07/04/19 03:31 DC 07/04/19 03:25 90 ML Ketorolac Tromethamine (Toradol 30mg Vial) 30 mg 1X ONCE 07/04/19 03:00 07/04/19 03:01 DC 07/04/19 02:54 30 MG Lidocaine HCl (Buffered Lidocaine 1%) 3 ml 1X ONCE 07/13/19 10:30 07/13/19 10:31 DC 07/13/19 10:27 3 ML Lidocaine HCl (Glydo (Lidocaine) Jelly) 1 ramu 1X ONCE 07/08/19 14:30 07/08/19 14:31 DC 07/08/19 16:38 1 RAMU Lidocaine HCl (Xylocaine-Mpf 1% 2ml Vial) 2 ml STK-MED ONCE 07/06/19 08:47 07/06/19 08:47 DC Linezolid/Dextrose 300 ml @ 300 mls/hr Q12HR 07/08/19 20:00 07/13/19 21:03 300 MLS/HR Lorazepam (Ativan Inj) 1 mg PRN Q4HRS PRN 07/07/19 09:00 07/11/19 00:34 1 MG Magnesium Sulfate 100 ml @ 25 mls/hr 1X ONCE 07/07/19 13:00 07/07/19 16:59 DC 07/07/19 12:48 25 MLS/HR Meropenem 1 gm/ Sodium Chloride 100 ml @ 200 mls/hr Q8HRS 07/05/19 20:00 07/06/19 08:48 DC 07/06/19 05:45 200 MLS/HR Meropenem 500 mg/ Sodium Chloride 50 ml @ 100 mls/hr Q6HRS 07/12/19 09:00 07/13/19 07:29 DC 07/13/19 06:00 100 MLS/HR Metoprolol Tartrate (Lopressor Vial) 5 mg Q6HRS 07/05/19 10:15 07/14/19 00:12 5 MG Metronidazole 100 ml @ 100 mls/hr Q6HRS 07/11/19 08:30 07/14/19 05:35 100 MLS/HR Micafungin Sodium 100 mg/Dextrose 100 ml @ 100 mls/hr Q24H 07/11/19 09:00 07/14/19 08:28 100 MLS/HR Midazolam HCl (Versed) 5 mg 1X ONCE 07/11/19 08:30 07/11/19 08:31 DC Midazolam HCl 50 mg/Sodium Chloride 50 ml @ 0 mls/hr CONT PRN 07/11/19 08:15 07/14/19 04:56 7 MLS/HR Morphine Sulfate (Morphine Sulfate) 2 mg PRN Q2HR PRN 07/04/19 05:00 07/05/19 14:15 DC 07/05/19 12:26 2 MG Multi-Ingred Cream/Lotion/Oil/ Oint (Artificial Tears Eye Ointment) 1 ramu PRN Q1HR PRN 07/13/19 17:30 Norepinephrine Bitartrate 8 mg/ Dextrose 258 ml @ 17.299 mls/ hr CONT PRN 07/05/19 15:30 07/14/19 01:42 10.379 MLS/HR Ondansetron HCl (Zofran) 4 mg PRN Q4HRS PRN 07/04/19 09:30 07/09/19 16:15 4 MG Pantoprazole Sodium (PROTONIX VIAL for IV PUSH) 40 mg DAILYAC 07/04/19 11:30 07/14/19 08:21 40 MG Piperacillin Sod/ Tazobactam Sod 4.5 gm/Sodium Chloride 100 ml @ 200 mls/hr 1X ONCE 07/04/19 06:00 07/04/19 06:29 DC 07/04/19 05:44 200 MLS/HR Potassium Chloride 15 meq/ Bicarbonate Dialysis Soln w/ out KCl 5,007.5 ml @ 1,000 mls/ hr Q5H1M 07/11/19 12:00 07/12/19 11:19 DC 07/12/19 11:11 1,000 MLS/HR Potassium Chloride 20 meq/ Bicarbonate Dialysis Soln w/ out KCl 5,010 ml @ 1,000 mls/hr Q5H1M 07/13/19 16:00 07/13/19 21:29 1,000 MLS/HR Potassium Chloride/Water 100 ml @ 100 mls/hr Q1H 07/12/19 11:00 07/12/19 12:59 DC 07/12/19 12:12 100 MLS/HR Potassium Phosphate 20 mmol/ Sodium Chloride 106.6667 ml @ 51.667 m... 1X ONCE 07/13/19 13:00 07/13/19 15:03 DC 07/13/19 12:51 51.667 MLS/HR Prochlorperazine Edisylate (Compazine) 10 mg PRN Q6HRS PRN 07/04/19 17:45 07/05/19 00:42 10 MG Propofol 0 ml @ As Directed STK-MED ONCE 07/11/19 07:53 07/11/19 07:53 DC Sodium Bicarbonate 50 meq/Sodium Chloride 1,050 ml @ 75 mls/hr Q14H 07/06/19 07:30 07/11/19 10:28 DC 07/10/19 21:10 75 MLS/HR Sodium Chloride (Normal Saline Flush) 10 ml 1X PRN PRN 07/09/19 08:00 07/10/19 07:59 DC Sodium Chloride 90 meq/Calcium Gluconate 10 meq/ Multivitamins 10 ml/Chromium/ Copper/Manganese/ Seleni/Zn 0.5 ml/ Total Parenteral Nutrition/Amino Acids/Dextrose/ Fat Emulsion Intravenous 1,512 ml @ 63 mls/hr TPN CONT 07/06/19 22:00 07/07/19 21:59 DC 07/06/19 22:06 63 MLS/HR Sodium Chloride 90 meq/Calcium Gluconate 10 meq/ Multivitamins 10 ml/Chromium/ Copper/Manganese/ Seleni/Zn 1 ml/ Total Parenteral Nutrition/Amino Acids/Dextrose/ Fat Emulsion Intravenous 55.005 ml @ 2.292 mls/hr TPN CONT 07/06/19 22:00 07/06/19 12:33 DC Sodium Chloride 90 meq/Magnesium Sulfate 10 meq/ Calcium Gluconate 20 meq/ Multivitamins 10 ml/Chromium/ Copper/Manganese/ Seleni/Zn 0.5 ml/ Total Parenteral Nutrition/Amino Acids/Dextrose/ Fat Emulsion Intravenous 1,512 ml @ 63 mls/hr TPN CONT 07/07/19 22:00 07/08/19 21:59 DC 07/07/19 22:25 63 MLS/HR Sodium Chloride 90 meq/Potassium Chloride 15 meq/ Potassium Phosphate 10 mmol/ Magnesium Sulfate 10 meq/Calcium Gluconate 20 meq/ Multivitamins 10 ml/Chromium/ Copper/Manganese/ Seleni/Zn 0.5 ml/ Total Parenteral Nutrition/Amino Acids/Dextrose/ Fat Emulsion Intravenous 1,400 ml @ 58.333 mls/ hr TPN CONT 07/11/19 22:00 07/12/19 21:59 DC 07/11/19 21:42 58.333 MLS/HR Sodium Chloride 90 meq/Potassium Chloride 15 meq/ Potassium Phosphate 15 mmol/ Magnesium Sulfate 10 meq/Calcium Gluconate 15 meq/ Multivitamins 10 ml/Chromium/ Copper/Manganese/ Seleni/Zn 0.5 ml/ Total Parenteral Nutrition/Amino Acids/Dextrose/ Fat Emulsion Intravenous 1,400 ml @ 58.333 mls/ hr TPN CONT 07/12/19 22:00 07/13/19 21:59 DC 07/12/19 22:17 58.333 MLS/HR Sodium Chloride 90 meq/Potassium Chloride 15 meq/ Potassium Phosphate 15 mmol/ Magnesium Sulfate 10 meq/Calcium Gluconate 20 meq/ Multivitamins 10 ml/Chromium/ Copper/Manganese/ Seleni/Zn 0.5 ml/ Total Parenteral Nutrition/Amino Acids/Dextrose/ Fat Emulsion Intravenous 1,200 ml @ 50 mls/hr TPN CONT 07/10/19 22:00 07/10/19 14:17 DC Sodium Chloride 90 meq/Potassium Chloride 15 meq/ Potassium Phosphate 18 mmol/ Magnesium Sulfate 8 meq/Calcium Gluconate 15 meq/ Multivitamins 10 ml/Chromium/ Copper/Manganese/ Seleni/Zn 0.5 ml/ Total Parenteral Nutrition/Amino Acids/Dextrose/ Fat Emulsion Intravenous 1,400 ml @ 58.333 mls/ hr TPN CONT 07/13/19 22:00 07/14/19 21:59 07/13/19 22:16 58.333 MLS/HR Succinylcholine Chloride (Anectine) 120 mg 1X ONCE 07/11/19 08:30 07/11/19 08:31 DC 07/11/19 08:34 120 MG Lab Laboratory Tests Test 07/13/19 15:00 07/13/19 17:38 07/13/19 21:00 07/14/19 00:20 Sodium Level 141 mmol/L (136-145) 138 mmol/L (136-145) Potassium Level 3.8 mmol/L (3.5-5.1) 3.7 mmol/L (3.5-5.1) Chloride Level 104 mmol/L (98-107) 104 mmol/L (98-107) Carbon Dioxide Level 25 mmol/L (21-32) 27 mmol/L (21-32) Anion Gap 12 (6-14) 7 (6-14) Blood Urea Nitrogen 49 mg/dL (7-20) 44 mg/dL (7-20) Creatinine 2.5 mg/dL (0.6-1.0) 2.0 mg/dL (0.6-1.0) Estimated GFR (Cockcroft-Gault) 20.5 26.5 Glucose Level 290 mg/dL (70-99) 195 mg/dL (70-99) Calcium Level 7.4 mg/dL (8.5-10.1) 7.5 mg/dL (8.5-10.1) Phosphorus Level 3.9 mg/dL (2.6-4.7) 3.6 mg/dL (2.6-4.7) Magnesium Level 2.2 mg/dL (1.8-2.4) 2.3 mg/dL (1.8-2.4) Glucose (Fingerstick) 253 mg/dL (70-99) 210 mg/dL (70-99) Test 07/14/19 05:20 07/14/19 05:32 07/14/19 07:45 White Blood Count 23.8 x10^3/uL (4.0-11.0) Red Blood Count 1.97 x10^6/uL (3.50-5.40) Hemoglobin 6.5 g/dL (12.0-15.5) Hematocrit 19.3 % (36.0-47.0) Mean Corpuscular Volume 98 fL (79-100) Mean Corpuscular Hemoglobin 33 pg (25-35) Mean Corpuscular Hemoglobin Concent 34 g/dL (31-37) Red Cell Distribution Width 13.8 % (11.5-14.5) Platelet Count 274 x10^3/uL (140-400) Neutrophils (%) (Auto) 89 % (31-73) Lymphocytes (%) (Auto) 5 % (24-48) Monocytes (%) (Auto) 4 % (0-9) Eosinophils (%) (Auto) 1 % (0-3) Basophils (%) (Auto) 0 % (0-3) Neutrophils # (Auto) 21.2 x10^3/uL (1.8-7.7) Lymphocytes # (Auto) 1.2 x10^3/uL (1.0-4.8) Monocytes # (Auto) 1.0 x10^3/uL (0.0-1.1) Eosinophils # (Auto) 0.3 x10^3/uL (0.0-0.7) Basophils # (Auto) 0.1 x10^3/uL (0.0-0.2) Sodium Level 137 mmol/L (136-145) Potassium Level 3.8 mmol/L (3.5-5.1) Chloride Level 103 mmol/L (98-107) Carbon Dioxide Level 22 mmol/L (21-32) Anion Gap 12 (6-14) Blood Urea Nitrogen 59 mg/dL (7-20) Creatinine 2.5 mg/dL (0.6-1.0) Estimated GFR (Cockcroft-Gault) 20.5 BUN/Creatinine Ratio 24 (6-20) Glucose Level 279 mg/dL (70-99) Calcium Level 7.7 mg/dL (8.5-10.1) Total Bilirubin 0.6 mg/dL (0.2-1.0) Aspartate Amino Transf (AST/SGOT) 37 U/L (15-37) Alanine Aminotransferase (ALT/SGPT) 16 U/L (14-59) Alkaline Phosphatase 83 U/L (46-116) Total Protein 4.3 g/dL (6.4-8.2) Albumin 1.9 g/dL (3.4-5.0) Albumin/Globulin Ratio 0.8 (1.0-1.7) Glucose (Fingerstick) 269 mg/dL (70-99) O2 Saturation 96 % (92-99) Arterial Blood pH 7.43 (7.35-7.45) Arterial Blood pCO2 at Patient Temp 32 mmHg (35-46) Arterial Blood pO2 at Patient Temp 94 mmHg (75-108) Arterial Blood HCO3 21 mmol/L (21-28) Arterial Blood Base Excess -3 mmol/L (-3-3) FiO2 40% Results All relevant outside records, renal labs, imaging studies, telemetry/EKG's were reviewed. Other The ET tube, feeding tube, right-sided PICC line, left-sided internal jugular line, dialysis catheter in place. Moderate prominent appearing bilateral interstitial lung markings likely congestive changes with small bilateral pleural effusions. VERENA KENT MD Jul 14, 2019 10:10
--- NOTE | 2019-07-14 10:12 | PDOC ---
Objective: Objective: D/w nurse - concern w/ fever, Tylenol not helping. Note orders for blood transfusion. Vital Signs: Vital Signs Date Time Temp Pulse Resp B/P (MAP) Pulse Ox O2 Delivery O2 Flow Rate FiO2 07/14/19 09:33 100 Ventilator 07/14/19 09:00 109 26 109/47 (67) 07/14/19 08:00 102.7 102.7 07/13/19 17:59 6.0 Labs: Laboratory Tests Test 07/13/19 15:00 07/13/19 17:38 07/13/19 21:00 07/14/19 00:20 Sodium Level 141 mmol/L 138 mmol/L Potassium Level 3.8 mmol/L 3.7 mmol/L Chloride Level 104 mmol/L 104 mmol/L Carbon Dioxide Level 25 mmol/L 27 mmol/L Anion Gap 12 7 Blood Urea Nitrogen 49 mg/dL 44 mg/dL Creatinine 2.5 mg/dL 2.0 mg/dL Estimated GFR (Cockcroft-Gault) 20.5 26.5 Glucose Level 290 mg/dL 195 mg/dL Calcium Level 7.4 mg/dL 7.5 mg/dL Phosphorus Level 3.9 mg/dL 3.6 mg/dL Magnesium Level 2.2 mg/dL 2.3 mg/dL Glucose (Fingerstick) 253 mg/dL 210 mg/dL Test 07/14/19 05:20 07/14/19 05:32 07/14/19 07:45 White Blood Count 23.8 x10^3/uL Red Blood Count 1.97 x10^6/uL Hemoglobin 6.5 g/dL Hematocrit 19.3 % Mean Corpuscular Volume 98 fL Mean Corpuscular Hemoglobin 33 pg Mean Corpuscular Hemoglobin Concent 34 g/dL Red Cell Distribution Width 13.8 % Platelet Count 274 x10^3/uL Neutrophils (%) (Auto) 89 % Lymphocytes (%) (Auto) 5 % Monocytes (%) (Auto) 4 % Eosinophils (%) (Auto) 1 % Basophils (%) (Auto) 0 % Neutrophils # (Auto) 21.2 x10^3/uL Lymphocytes # (Auto) 1.2 x10^3/uL Monocytes # (Auto) 1.0 x10^3/uL Eosinophils # (Auto) 0.3 x10^3/uL Basophils # (Auto) 0.1 x10^3/uL Sodium Level 137 mmol/L Potassium Level 3.8 mmol/L Chloride Level 103 mmol/L Carbon Dioxide Level 22 mmol/L Anion Gap 12 Blood Urea Nitrogen 59 mg/dL Creatinine 2.5 mg/dL Estimated GFR (Cockcroft-Gault) 20.5 BUN/Creatinine Ratio 24 Glucose Level 279 mg/dL Calcium Level 7.7 mg/dL Total Bilirubin 0.6 mg/dL Aspartate Amino Transf (AST/SGOT) 37 U/L Alanine Aminotransferase (ALT/SGPT) 16 U/L Alkaline Phosphatase 83 U/L Total Protein 4.3 g/dL Albumin 1.9 g/dL Albumin/Globulin Ratio 0.8 Glucose (Fingerstick) 269 mg/dL O2 Saturation 96 % Arterial Blood pH 7.43 Arterial Blood pCO2 at Patient Temp 32 mmHg Arterial Blood pO2 at Patient Temp 94 mmHg Arterial Blood HCO3 21 mmol/L Arterial Blood Base Excess -3 mmol/L FiO2 40% BLOOD CULTURE Preliminary NO GROWTH AFTER 2 DAYS Imaging: CXR 07/13 Impression: The ET tube, feeding tube, right-sided PICC line, left-sided internal jugular li ne, dialysis catheter in place. Moderate prominent appearing bilateral interstitial lung markings likely congestive changes with small bilateral pleural effusions. PE: GEN: intubated, CRRT, febrile HEENT: OG bilious - less dark LUNGS: diminished HEART: tachycardic ABD: ?softer, rectal tube dark liquid EXTREMITY: some edema, boots NEURO/PSYCH: sedated A/P: Gallstone pancreatitis, MOSF, fever -- Will review w/ Dr. Weber. Hemodynamically unstable?: Yes Is patient in severe pain?: Yes Is NPO status required?: Yes CYNDEE FALCON Jul 14, 2019 10:12
--- NOTE | 2019-07-14 10:34 | RAD ---
Abdominal ultrasound right upper quadrant: Reason for examination: Fever and gallstones. Possible pancreatitis. Ascites. Comparison is made to previous study dated 07/04/2019. Patient was limited due to patient body habitus and condition and patient couldn't be moved or hold breath. The pancreas is poorly visualized due to bowel gas but the portion of the pancreas visualized appears to be enlarged and hypoechoic which would be consistent with history of pancreatitis. The inferior vena cava is poorly visualized due to bowel gas. The liver appears to be mildly enlarged at 18.4 cm and shows diffuse fatty infiltration. No focal hepatic lesions are seen. Portal vein is patent with hepatopedal flow. Gallbladder shows cholelithiasis but shows no wall thickening or pericholecystic fluid. Common bile duct is normal in caliber at 1.5 mm. Right kidney is poorly visualized but appears to measure approximately 14.1 x 7.1 x 6.6 cm in greatest dimension with no mass or hydronephrosis evident. There is ascites present. IMPRESSION: Poorly visualized pancreas but the portion visualized appears enlarged and hypoechoic consistent with history of pancreatitis. Cholelithiasis. Ascites. Mild hepatomegaly with diffuse fatty infiltration. Electronically signed by: Nicole Martin MD (07/14/2019 10:31 AM) [id number]
[2019-07-14 11:14] LABS: INFLUENZA A PATIENT NEGATIVE (NEGATIVE); INFLUENZA B PATIENT NEGATIVE (NEGATIVE)
--- NOTE | 2019-07-14 11:18 | PDOC ---
PULMONARY PROGRESS NOTES Subjective Patient intubated on 07/10 , sedated she is on 40% FiO2 8 of PEEP, PIP 37 Vitals Vital Signs Date Time Temp Pulse Resp B/P (MAP) Pulse Ox O2 Delivery O2 Flow Rate FiO2 07/14/19 10:45 100 24 99/57 07/14/19 10:31 100.6 100.6 07/14/19 09:33 100 Ventilator 07/13/19 17:59 6.0 HEENT: Other (nc at perrl bipap mask on neck no lad no thyromegaly) Lungs: Crackles Cardiovascular: S1, S2 Abdomen: Other (distended, diffuse pain no mass) Extremities: No Edema Skin: Warm Labs Laboratory Tests Test 07/12/19 12:53 07/12/19 16:30 07/13/19 00:02 07/13/19 00:55 Glucose (Fingerstick) 225 mg/dL (70-99) 274 mg/dL (70-99) Sodium Level 139 mmol/L (136-145) 139 mmol/L (136-145) Potassium Level 3.7 mmol/L (3.5-5.1) 3.7 mmol/L (3.5-5.1) Chloride Level 103 mmol/L (98-107) 103 mmol/L (98-107) Carbon Dioxide Level 29 mmol/L (21-32) 23 mmol/L (21-32) Anion Gap 7 (6-14) 13 (6-14) Blood Urea Nitrogen 36 mg/dL (7-20) 42 mg/dL (7-20) Creatinine 2.1 mg/dL (0.6-1.0) 2.2 mg/dL (0.6-1.0) Estimated GFR (Cockcroft-Gault) 25.0 23.7 Glucose Level 280 mg/dL (70-99) 274 mg/dL (70-99) Calcium Level 7.2 mg/dL (8.5-10.1) 7.7 mg/dL (8.5-10.1) Phosphorus Level 2.5 mg/dL (2.6-4.7) 2.4 mg/dL (2.6-4.7) Magnesium Level 2.3 mg/dL (1.8-2.4) 2.3 mg/dL (1.8-2.4) Test 07/13/19 06:00 07/13/19 08:00 07/13/19 08:55 07/13/19 15:00 White Blood Count 26.3 x10^3/uL (4.0-11.0) Red Blood Count 2.41 x10^6/uL (3.50-5.40) Hemoglobin 7.8 g/dL (12.0-15.5) Hematocrit 23.6 % (36.0-47.0) Mean Corpuscular Volume 98 fL (79-100) Mean Corpuscular Hemoglobin 33 pg (25-35) Mean Corpuscular Hemoglobin Concent 33 g/dL (31-37) Red Cell Distribution Width 13.4 % (11.5-14.5) Platelet Count 292 x10^3/uL (140-400) Neutrophils (%) (Auto) 90 % (31-73) Lymphocytes (%) (Auto) 4 % (24-48) Monocytes (%) (Auto) 5 % (0-9) Eosinophils (%) (Auto) 1 % (0-3) Basophils (%) (Auto) 0 % (0-3) Neutrophils # (Auto) 23.8 x10^3/uL (1.8-7.7) Lymphocytes # (Auto) 1.0 x10^3/uL (1.0-4.8) Monocytes # (Auto) 1.2 x10^3/uL (0.0-1.1) Eosinophils # (Auto) 0.3 x10^3/uL (0.0-0.7) Basophils # (Auto) 0.0 x10^3/uL (0.0-0.2) Segmented Neutrophils % 73 % (35-66) Band Neutrophils % 19 % (0-9) Lymphocytes % 3 % (24-48) Monocytes % 1 % (0-10) Metamyelocytes % 3 % (0-0) Myelocytes % 1 % (0-0) Toxic Granulation Slight Dohle Bodies Few Platelet Estimate Adequate (ADEQUATE) Sodium Level 137 mmol/L (136-145) 141 mmol/L (136-145) Potassium Level 3.6 mmol/L (3.5-5.1) 3.8 mmol/L (3.5-5.1) Chloride Level 103 mmol/L (98-107) 104 mmol/L (98-107) Carbon Dioxide Level 26 mmol/L (21-32) 25 mmol/L (21-32) Anion Gap 8 (6-14) 12 (6-14) Blood Urea Nitrogen 50 mg/dL (7-20) 49 mg/dL (7-20) Creatinine 2.7 mg/dL (0.6-1.0) 2.5 mg/dL (0.6-1.0) Estimated GFR (Cockcroft-Gault) 18.7 20.5 BUN/Creatinine Ratio 19 (6-20) Glucose Level 270 mg/dL (70-99) 290 mg/dL (70-99) Calcium Level 7.5 mg/dL (8.5-10.1) 7.4 mg/dL (8.5-10.1) Phosphorus Level 2.3 mg/dL (2.6-4.7) 3.9 mg/dL (2.6-4.7) Magnesium Level 2.3 mg/dL (1.8-2.4) 2.2 mg/dL (1.8-2.4) Total Bilirubin 0.4 mg/dL (0.2-1.0) Aspartate Amino Transf (AST/SGOT) 27 U/L (15-37) Alanine Aminotransferase (ALT/SGPT) 12 U/L (14-59) Alkaline Phosphatase 82 U/L (46-116) Total Protein 4.3 g/dL (6.4-8.2) Albumin 1.4 g/dL (3.4-5.0) Albumin/Globulin Ratio 0.5 (1.0-1.7) Lactic Acid Level 1.4 mmol/L (0.4-2.0) O2 Saturation 97 % (92-99) Arterial Blood pH 7.45 (7.35-7.45) Arterial Blood pCO2 at Patient Temp 32 mmHg (35-46) Arterial Blood pO2 at Patient Temp 99 mmHg (75-108) Arterial Blood HCO3 22 mmol/L (21-28) Arterial Blood Base Excess -2 mmol/L (-3-3) FiO2 40 Test 07/13/19 17:38 07/13/19 21:00 07/14/19 00:20 07/14/19 05:20 Glucose (Fingerstick) 253 mg/dL (70-99) 210 mg/dL (70-99) Sodium Level 138 mmol/L (136-145) 137 mmol/L (136-145) Potassium Level 3.7 mmol/L (3.5-5.1) 3.8 mmol/L (3.5-5.1) Chloride Level 104 mmol/L (98-107) 103 mmol/L (98-107) Carbon Dioxide Level 27 mmol/L (21-32) 22 mmol/L (21-32) Anion Gap 7 (6-14) 12 (6-14) Blood Urea Nitrogen 44 mg/dL (7-20) 59 mg/dL (7-20) Creatinine 2.0 mg/dL (0.6-1.0) 2.5 mg/dL (0.6-1.0) Estimated GFR (Cockcroft-Gault) 26.5 20.5 Glucose Level 195 mg/dL (70-99) 279 mg/dL (70-99) Calcium Level 7.5 mg/dL (8.5-10.1) 7.7 mg/dL (8.5-10.1) Phosphorus Level 3.6 mg/dL (2.6-4.7) Magnesium Level 2.3 mg/dL (1.8-2.4) White Blood Count 23.8 x10^3/uL (4.0-11.0) Red Blood Count 1.97 x10^6/uL (3.50-5.40) Hemoglobin 6.5 g/dL (12.0-15.5) Hematocrit 19.3 % (36.0-47.0) Mean Corpuscular Volume 98 fL (79-100) Mean Corpuscular Hemoglobin 33 pg (25-35) Mean Corpuscular Hemoglobin Concent 34 g/dL (31-37) Red Cell Distribution Width 13.8 % (11.5-14.5) Platelet Count 274 x10^3/uL (140-400) Neutrophils (%) (Auto) 89 % (31-73) Lymphocytes (%) (Auto) 5 % (24-48) Monocytes (%) (Auto) 4 % (0-9) Eosinophils (%) (Auto) 1 % (0-3) Basophils (%) (Auto) 0 % (0-3) Neutrophils # (Auto) 21.2 x10^3/uL (1.8-7.7) Lymphocytes # (Auto) 1.2 x10^3/uL (1.0-4.8) Monocytes # (Auto) 1.0 x10^3/uL (0.0-1.1) Eosinophils # (Auto) 0.3 x10^3/uL (0.0-0.7) Basophils # (Auto) 0.1 x10^3/uL (0.0-0.2) BUN/Creatinine Ratio 24 (6-20) Total Bilirubin 0.6 mg/dL (0.2-1.0) Aspartate Amino Transf (AST/SGOT) 37 U/L (15-37) Alanine Aminotransferase (ALT/SGPT) 16 U/L (14-59) Alkaline Phosphatase 83 U/L (46-116) Total Protein 4.3 g/dL (6.4-8.2) Albumin 1.9 g/dL (3.4-5.0) Albumin/Globulin Ratio 0.8 (1.0-1.7) Test 07/14/19 05:32 07/14/19 07:45 Glucose (Fingerstick) 269 mg/dL (70-99) O2 Saturation 96 % (92-99) Arterial Blood pH 7.43 (7.35-7.45) Arterial Blood pCO2 at Patient Temp 32 mmHg (35-46) Arterial Blood pO2 at Patient Temp 94 mmHg (75-108) Arterial Blood HCO3 21 mmol/L (21-28) Arterial Blood Base Excess -3 mmol/L (-3-3) FiO2 40% Laboratory Tests Test 07/13/19 15:00 07/13/19 17:38 07/13/19 21:00 07/14/19 00:20 Sodium Level 141 mmol/L (136-145) 138 mmol/L (136-145) Potassium Level 3.8 mmol/L (3.5-5.1) 3.7 mmol/L (3.5-5.1) Chloride Level 104 mmol/L (98-107) 104 mmol/L (98-107) Carbon Dioxide Level 25 mmol/L (21-32) 27 mmol/L (21-32) Anion Gap 12 (6-14) 7 (6-14) Blood Urea Nitrogen 49 mg/dL (7-20) 44 mg/dL (7-20) Creatinine 2.5 mg/dL (0.6-1.0) 2.0 mg/dL (0.6-1.0) Estimated GFR (Cockcroft-Gault) 20.5 26.5 Glucose Level 290 mg/dL (70-99) 195 mg/dL (70-99) Calcium Level 7.4 mg/dL (8.5-10.1) 7.5 mg/dL (8.5-10.1) Phosphorus Level 3.9 mg/dL (2.6-4.7) 3.6 mg/dL (2.6-4.7) Magnesium Level 2.2 mg/dL (1.8-2.4) 2.3 mg/dL (1.8-2.4) Glucose (Fingerstick) 253 mg/dL (70-99) 210 mg/dL (70-99) Test 07/14/19 05:20 07/14/19 05:32 07/14/19 07:45 White Blood Count 23.8 x10^3/uL (4.0-11.0) Red Blood Count 1.97 x10^6/uL (3.50-5.40) Hemoglobin 6.5 g/dL (12.0-15.5) Hematocrit 19.3 % (36.0-47.0) Mean Corpuscular Volume 98 fL (79-100) Mean Corpuscular Hemoglobin 33 pg (25-35) Mean Corpuscular Hemoglobin Concent 34 g/dL (31-37) Red Cell Distribution Width 13.8 % (11.5-14.5) Platelet Count 274 x10^3/uL (140-400) Neutrophils (%) (Auto) 89 % (31-73) Lymphocytes (%) (Auto) 5 % (24-48) Monocytes (%) (Auto) 4 % (0-9) Eosinophils (%) (Auto) 1 % (0-3) Basophils (%) (Auto) 0 % (0-3) Neutrophils # (Auto) 21.2 x10^3/uL (1.8-7.7) Lymphocytes # (Auto) 1.2 x10^3/uL (1.0-4.8) Monocytes # (Auto) 1.0 x10^3/uL (0.0-1.1) Eosinophils # (Auto) 0.3 x10^3/uL (0.0-0.7) Basophils # (Auto) 0.1 x10^3/uL (0.0-0.2) Sodium Level 137 mmol/L (136-145) Potassium Level 3.8 mmol/L (3.5-5.1) Chloride Level 103 mmol/L (98-107) Carbon Dioxide Level 22 mmol/L (21-32) Anion Gap 12 (6-14) Blood Urea Nitrogen 59 mg/dL (7-20) Creatinine 2.5 mg/dL (0.6-1.0) Estimated GFR (Cockcroft-Gault) 20.5 BUN/Creatinine Ratio 24 (6-20) Glucose Level 279 mg/dL (70-99) Calcium Level 7.7 mg/dL (8.5-10.1) Total Bilirubin 0.6 mg/dL (0.2-1.0) Aspartate Amino Transf (AST/SGOT) 37 U/L (15-37) Alanine Aminotransferase (ALT/SGPT) 16 U/L (14-59) Alkaline Phosphatase 83 U/L (46-116) Total Protein 4.3 g/dL (6.4-8.2) Albumin 1.9 g/dL (3.4-5.0) Albumin/Globulin Ratio 0.8 (1.0-1.7) Glucose (Fingerstick) 269 mg/dL (70-99) O2 Saturation 96 % (92-99) Arterial Blood pH 7.43 (7.35-7.45) Arterial Blood pCO2 at Patient Temp 32 mmHg (35-46) Arterial Blood pO2 at Patient Temp 94 mmHg (75-108) Arterial Blood HCO3 21 mmol/L (21-28) Arterial Blood Base Excess -3 mmol/L (-3-3) FiO2 40% Medications Active Scripts Medications Dose Route/Sig Max Daily Dose Days Date Category Bisoprolol Fumarate 5 Mg Tablet 10 Mg PO DAILY 07/04/19 Reported Comments 07/13 cxr poor insp film interstitial prominence/bilateral effusions worsening Impression . IMPRESSION: 1. Acute hypoxemic respiratory failure secondary to ARDS due toacute pancreatitis, sepsis, abdominal distention, and pneumonia.and pleural effusions. Pleural effusions secondary to abdominal process and/or general volume overload from renal failure. Gas exchane better compared to earlier, but more effusions. 2. Gallstone pancreatitis. WITH NECROSIS 3. Severe metabolic acidosis. 4. Acute kidney injury. ON CRRT 5. Acute gallstone pancreatitis. 6. Hypoalbuminemia. 7. Hypocalcemia. 8. Leukocytosis 9. Chronic anemia Plan . Cont AC mode , 40 FIO2/ 8 PEEP Poor prognosis/ ARDS supportive care CRRT Repeat CT once stable Antibiotics per ID Follow surgery input Follow nephrology input Nutritional support with TPN Prognosis is extremely poor d/w RN/RT critical care time spent reviewing chart and xrays and examining and managing patient 40 min RAHEL ADAME MD Jul 14, 2019 11:18
--- NOTE | 2019-07-14 12:20 | PDOC ---
[facility] PROGRESS NOTE Chief Complaint Chief Complaint Respiratory failure requiring intubation this morning Severe Acute pancreatitis Acute kidney failure now requiring dialysis Salpingo--itis Gallstones (Calculus of gallbladder with acute cholecystitis without obstruction) HTN Leukocytosis Hypoxia Uterine fibroid Hypoxia with respiratory failure Intractable pain Intractable nausea History of Present Illness History of Present Illness [id number] Patient seen and examined in the ICU She is extremely critically ill Remains mechanically ventilated with assist control/25/450/40% Also on continuous renal replacement therapy Chart reviewed Discussed with RN She has TPN hanging Also on pressors [id number] Patient seen and examined in the ICU She is still requiring CRRT On the vent with assist control but her FiO2 is down to 40% from yesterday Slightly better but still very critically ill Discussed with RN Chart reviewed [id number] Patient seen and examined in the ICU She remains extremely critically ill On IV fentanyl IV Versed IV Doxy On the vent Assist-control/25/450/70% She is critically ill Discussed with RN Chart reviewed Patient is currently on CRRT as well [id number] Patient seen and examined in the ICU She had to be intubated this morning On assist-control 25/450/100% with 10 of PEEP and only satting 87% She is extremely critically ill I'm not sure if she will survive Chart reviewed Discussed with RN Ms Diaz is a 48yo F w/ PMHx HTN, prediabetes who presents the emergency room complaints of abdominal pain. Patient described off and on 3 days. She states is constant, described as a squeezing sensation in a band-like distribution. + nausea, vomiting. She denies any fever or diarrhea. Patient denies any abdominal surgical procedures. She states is worse with movements, car ride. Pain initially was upper abdomen however now pretty much generalized. Last bowel movement was 07/03/2019. Nothing makes her pain better. Patient denies any shortness of breath. She does state the pain moves into her chest. Denies any headache or visual changes. Lipase 19062, AST 401, ALT 249, Bilirubin 1.4. CT abdomen confirms pancreatic inflammation, peripancreatic fluid and inflammatory changes around the pancreas consistent with pancreatitis. Cholelithiasis and 1.4cm uterine fibroid as well as possible left salpingitis. Admitted for further care GI, General surgery, ID, Pulm consulted. 07/04: Overnight per report no urine output. Added dilaudid for pain, PICC placed per IR. Renal US negative.Seen bedside in ICU, given 2L additional NSS and albumin infusion. Still hypotensive, started on levophed. Repeat CT abdomen with necrosis. Updated her fiancee 07/05: Sats are only 87% on nasal cannula oxygen. Dialysis catheter per nephrology 07/06: She is now on BiPAP appears more ill, now on dialysis 07/07: Seen on BiPAP. Her mother and another family member are present and seemed to be good support for her. Currently on dialysis. Appears critically ill 07/08: Overnight Tmax 101.7 , still on BiPAP FiO2 40%, still on low dose Levophed gtt, TPN initiated. On dialysis Overnight still febrile. Dialysis today. She wakes up and responds to pain. No CP. Vitals/I&O Vitals/I&O: Vital Signs Date Time Temp Pulse Resp B/P (MAP) Pulse Ox O2 Delivery O2 Flow Rate FiO2 07/14/19 12:12 99 Ventilator 07/14/19 11:00 6 24 112/51 (71) 07/14/19 10:31 100.6 100.6 07/13/19 17:59 6.0 I & O 07/13/19 07/13/19 07/14/19 14:59 22:59 06:59 Intake Total 589 ml 1131.6667 ml 1310 ml Output Total 95 ml 255 ml 210 ml Balance 494 ml 876.6667 ml 1100 ml Physical Exam Physical Exam: GENERAL:Intubated/sedated HEENT: Mild icterus. Oral mucosa very dry. NECK: Supple. LUNGS: Decreased breath sounds at the bases. HEART: S1, S2, tachycardia, 120s, regular ABDOMEN: Distended, + BS. Rectal tube in place - soft : Lind EXTREMITIES: Trace edema, no cyanosis - less mottled but and toes appear nonischemic.today - Rooke boots in place DERMATOLOGIC: Warm and dry. No generalized rash. CENTRAL NERVOUS SYSTEM: Intubated - rhythmic movements of head IV: RIJ Temp HDC & RUE PICC - Left IJ General: Other (sedated ) Heart: Other (increased rate) Lungs: Crackles Abdomen: Soft Extremities: No edema, Other (SOME CLUBBING ) Skin: Other (mottling noted to extremities ) Labs Labs: Laboratory Tests Test 07/13/19 15:00 07/13/19 17:38 07/13/19 21:00 07/14/19 00:20 Sodium Level 141 mmol/L (136-145) 138 mmol/L (136-145) Potassium Level 3.8 mmol/L (3.5-5.1) 3.7 mmol/L (3.5-5.1) Chloride Level 104 mmol/L (98-107) 104 mmol/L (98-107) Carbon Dioxide Level 25 mmol/L (21-32) 27 mmol/L (21-32) Anion Gap 12 (6-14) 7 (6-14) Blood Urea Nitrogen 49 mg/dL (7-20) 44 mg/dL (7-20) Creatinine 2.5 mg/dL (0.6-1.0) 2.0 mg/dL (0.6-1.0) Estimated GFR (Cockcroft-Gault) 20.5 26.5 Glucose Level 290 mg/dL (70-99) 195 mg/dL (70-99) Calcium Level 7.4 mg/dL (8.5-10.1) 7.5 mg/dL (8.5-10.1) Phosphorus Level 3.9 mg/dL (2.6-4.7) 3.6 mg/dL (2.6-4.7) Magnesium Level 2.2 mg/dL (1.8-2.4) 2.3 mg/dL (1.8-2.4) Glucose (Fingerstick) 253 mg/dL (70-99) 210 mg/dL (70-99) Test 07/14/19 05:20 07/14/19 05:32 07/14/19 07:45 07/14/19 10:30 White Blood Count 23.8 x10^3/uL (4.0-11.0) Red Blood Count 1.97 x10^6/uL (3.50-5.40) Hemoglobin 6.5 g/dL (12.0-15.5) Hematocrit 19.3 % (36.0-47.0) Mean Corpuscular Volume 98 fL (79-100) Mean Corpuscular Hemoglobin 33 pg (25-35) Mean Corpuscular Hemoglobin Concent 34 g/dL (31-37) Red Cell Distribution Width 13.8 % (11.5-14.5) Platelet Count 274 x10^3/uL (140-400) Neutrophils (%) (Auto) 89 % (31-73) Lymphocytes (%) (Auto) 5 % (24-48) Monocytes (%) (Auto) 4 % (0-9) Eosinophils (%) (Auto) 1 % (0-3) Basophils (%) (Auto) 0 % (0-3) Neutrophils # (Auto) 21.2 x10^3/uL (1.8-7.7) Lymphocytes # (Auto) 1.2 x10^3/uL (1.0-4.8) Monocytes # (Auto) 1.0 x10^3/uL (0.0-1.1) Eosinophils # (Auto) 0.3 x10^3/uL (0.0-0.7) Basophils # (Auto) 0.1 x10^3/uL (0.0-0.2) Sodium Level 137 mmol/L (136-145) Potassium Level 3.8 mmol/L (3.5-5.1) Chloride Level 103 mmol/L (98-107) Carbon Dioxide Level 22 mmol/L (21-32) Anion Gap 12 (6-14) Blood Urea Nitrogen 59 mg/dL (7-20) Creatinine 2.5 mg/dL (0.6-1.0) Estimated GFR (Cockcroft-Gault) 20.5 BUN/Creatinine Ratio 24 (6-20) Glucose Level 279 mg/dL (70-99) Calcium Level 7.7 mg/dL (8.5-10.1) Total Bilirubin 0.6 mg/dL (0.2-1.0) Aspartate Amino Transf (AST/SGOT) 37 U/L (15-37) Alanine Aminotransferase (ALT/SGPT) 16 U/L (14-59) Alkaline Phosphatase 83 U/L (46-116) Total Protein 4.3 g/dL (6.4-8.2) Albumin 1.9 g/dL (3.4-5.0) Albumin/Globulin Ratio 0.8 (1.0-1.7) Glucose (Fingerstick) 269 mg/dL (70-99) O2 Saturation 96 % (92-99) Arterial Blood pH 7.43 (7.35-7.45) [facility] (35-46) Arterial Blood pO2 at Patient Temp 94 mmHg (75-108) Arterial Blood HCO3 21 mmol/L (21-28) Arterial Blood Base Excess -3 mmol/L (-3-3) FiO2 40% Influenza Type A Antigen Negative (NEGATIVE) Influenza Type B Antigen Negative (NEGATIVE) Test 07/14/19 12:01 Glucose (Fingerstick) 264 mg/dL (70-99) Assessment and Plan Assessmemt and Plan Problems Medical Problems: (1) Acute pancreatitis Status: Acute (2) Cholelithiasis Status: Acute Respiratory failure requiring intubation this morning Severe Acute pancreatitis Acute kidney failure now requiring dialysis Salpingo--itis Gallstones (Calculus of gallbladder with acute cholecystitis without obstruction) HTN Leukocytosis Hypoxia Uterine fibroid Hypoxia with respiratory failure Intractable pain Intractable nausea Plan CRRT Mechanical ventilation Hemodialysis BiPAP ICU monitoring Trend labs especially white count and lipase levels We have consulted GI and general surgery IV antibiotics IV fluids TN narcotics When necessary anti-medics Home meds if possible DVT prophylaxis Full code She is critically ill Total time 32 minutes Comment Review of Relevant I have reviewed the following items kolby (where applicable) has been applied. Medications: Current Medications Medications (Trade) Dose Ordered Sig/Yvon Route PRN Reason Start Time Stop Time Status Last Admin Dose Admin Potassium Phosphate 20 mmol/ Sodium Chloride 106.6667 ml @ 51.667 m... 1X ONCE IV 07/13/19 13:00 07/13/19 15:03 DC 07/13/19 12:51 Sodium Chloride 90 meq/Potassium Chloride 15 meq/ Potassium Phosphate 18 mmol/ Magnesium Sulfate 8 meq/Calcium Gluconate 15 meq/ Multivitamins 10 ml/Chromium/ Copper/Manganese/ Seleni/Zn 0.5 ml/ Total Parenteral Nutrition/Amino Acids/Dextrose/ Fat Emulsion Intravenous 1,400 ml @ 58.333 mls/ hr TPN CONT IV 07/13/19 22:00 07/14/19 21:59 07/13/19 22:16 Potassium Chloride 20 meq/ Bicarbonate Dialysis Soln w/ out KCl 5,010 ml @ 1,000 mls/hr Q5H1M IV 07/13/19 16:00 07/14/19 10:25 Hemodynamically unstable?: Yes Is patient in severe pain?: Yes Is NPO status required?: Yes BEBO KIRBY III DO Jul 14, 2019 12:20
[2019-07-14] MEDS ORDERED: ALBUMIN HUMAN 5% 500 ML IV ONE (14:15)
[2019-07-14] MEDS: ALBUMIN HUMAN 5% 500 ML IV PRN (14:20)
--- NOTE | 2019-07-14 14:21 | NUR ---
Albumin ordered and initiated as a result of low blood pressure 63/57. Recheck after 5 minutes was 76/52.
--- NOTE | 2019-07-14 14:40 | NUR ---
Heparin SQ not given today since Hgb 6.5 and required unit of blood to be given.
--- NOTE | 2019-07-14 14:50 | PDOC2 ---
NEUROLOGY CONSULT Date of Admission Date of Admission DATE: 07/14/19 TIME: 14:35 Reason for Consult Reason for Consult: Possible seizure Referring Physician Referring Physician: Dr. Papa Dos Santos Source Source: Chart review History of Present Illness History of Present Illness The patient is a 48-year-old right-handed female admitted 3 days ago with nausea, vomiting, abdominal pain, found to have severe acute gallstone pancreatitis. She was having a CT this morning when she became unresponsive and required intubation. In the ICU she was observed to have some twitching movements of the head, but now she is heavily sedated. Note that she is also on pressor medications. We do not know any prior history of stroke, seizure, or head injury, but family is unavailable, I did leave a message. She is on CRRT for acute kidney failure. She has been febrile. She has had respiratory insufficiency since admission, but did not require intubation until today. Past Medical History Cardiovascular: HTN, Hyperlipidemia Endocrine: Diabetes Family History Family History: Other (unobtainable) Social History Social History unobtainable Current Medications Current Medications Current Medications Sodium Chloride 1,000 ml @ 1,000 mls/hr Q1H IV Last administered on 07/04/19at 03:00; Start 07/04/19 at 03:00; Stop 07/04/19 at 03:59; Status DC Ondansetron HCl (Zofran) 4 mg 1X ONCE IVP Last administered on 07/04/19at 03:27; Start 07/04/19 at 03:00; Stop 07/04/19 at 03:01; Status DC Morphine Sulfate (Morphine Sulfate) 4 mg 1X ONCE IV ; Start 07/04/19 at 03:00; Stop 07/04/19 at 03:01; Status Cancel Ketorolac Tromethamine (Toradol 30mg Vial) 30 mg 1X ONCE IV Last administered on 07/04/19at 02:54; Start 07/04/19 at 03:00; Stop 07/04/19 at 03:01; Status DC Fentanyl Citrate (Fentanyl 2ml Vial) 25 mcg 1X ONCE IVP Last administered on 07/04/19at 03:23; Start 07/04/19 at 03:30; Stop 07/04/19 at 03:31; Status DC Fentanyl Citrate (Fentanyl 2ml Vial) 100 mcg STK-MED ONCE .ROUTE ; Start 07/04/19 at 03:18; Stop 07/04/19 at 03:18; Status DC Iohexol (Omnipaque 350 Mg/ml) 90 ml 1X ONCE IV Last administered on 07/04/19at 03:25; Start 07/04/19 at 03:30; Stop 07/04/19 at 03:31; Status DC Info (CONTRAST GIVEN -- Rx MONITORING) 1 each PRN DAILY PRN MC SEE COMMENTS; Start 07/04/19 at 03:30; Stop 07/06/19 at 03:29; Status DC Hydromorphone HCl (Dilaudid) 0.5 mg 1X ONCE IV Last administered on 07/04/19at 03:55; Start 07/04/19 at 04:30; Stop 07/04/19 at 04:32; Status DC Ondansetron HCl (Zofran) 4 mg PRN Q8HRS PRN IV NAUSEA/VOMITING 1ST CHOICE; Start 07/04/19 at 05:00; Stop 07/04/19 at 09:27; Status DC Morphine Sulfate (Morphine Sulfate) 2 mg PRN Q2HR PRN IV SEVERE PAIN 7-10 Last administered on 07/05/19at 12:26; Start 07/04/19 at 05:00; Stop 07/05/19 at 14:15; Status DC Sodium Chloride 1,000 ml @ 125 mls/hr Q8H IV Last administered on 07/04/19at 20:56; Start 07/04/19 at 05:00; Stop 07/05/19 at 04:59; Status DC Hydromorphone HCl (Dilaudid) 0.5 mg PRN Q3HRS PRN IV SEVERE PAIN 7-10 Last administered on 07/05/19at 10:06; Start 07/04/19 at 05:00; Stop 07/05/19 at 12:01; Status DC Piperacillin Sod/ Tazobactam Sod 4.5 gm/Sodium Chloride 100 ml @ 200 mls/hr 1X ONCE IV Last administered on 07/04/19at 05:44; Start 07/04/19 at 06:00; Stop 07/04/19 at 06:29; Status DC Ondansetron HCl (Zofran) 4 mg PRN Q4HRS PRN IV NAUSEA/VOMITING 1ST CHOICE Last administered on 07/09/19at 16:15; Start 07/04/19 at 09:30 Insulin Human Lispro (HumaLOG) 0-9 UNITS Q6HRS SQ Last administered on 07/14/19at 12:11; Start 07/04/19 at 09:30 Dextrose (Dextrose 50%-Water Syringe) 12.5 gm PRN Q15MIN PRN IV SEE COMMENTS; Start 07/04/19 at 09:30 Pantoprazole Sodium (PROTONIX VIAL for IV PUSH) 40 mg DAILYAC IVP Last administered on 07/14/19at 08:21; Start 07/04/19 at 11:30 Prochlorperazine Edisylate (Compazine) 10 mg PRN Q6HRS PRN IV NAUSEA/VOMITING, 2nd CHOICE Last administered on 07/05/19at 00:42; Start 07/04/19 at 17:45 Atenolol (Tenormin) 100 mg DAILY PO ; Start 07/05/19 at 09:00; Stop 07/04/19 at 20:08; Status DC Metoprolol Tartrate (Lopressor Vial) 2.5 mg Q6HRS IVP Last administered on 07/05/19at 05:51; Start 07/04/19 at 20:15; Stop 07/05/19 at 10:02; Status DC Metoprolol Tartrate (Lopressor Vial) 5 mg Q6HRS IVP Last administered on 07/14/19at 00:12; Start 07/05/19 at 10:15 Hydromorphone HCl (Dilaudid) 1 mg PRN Q3HRS PRN IV SEVERE PAIN 7-10 Last administered on 07/11/19at 05:13; Start 07/05/19 at 12:00 Lidocaine HCl (Buffered Lidocaine 1%) 3 ml STK-MED ONCE .ROUTE ; Start 07/05/19 at 12:55; Stop 07/05/19 at 12:56; Status DC Albumin Human 500 ml @ 125 mls/hr 1X ONCE IV Last administered on 07/05/19at 14:33; Start 07/05/19 at 14:30; Stop 07/05/19 at 18:32; Status DC Norepinephrine Bitartrate 8 mg/ Dextrose 258 ml @ 17.299 mls/ hr CONT PRN IV PER PROTOCOL Last administered on 07/14/19at 01:42; Start 07/05/19 at 15:30 Sodium Chloride 1,000 ml @ 125 mls/hr Q8H IV Last administered on 07/05/19at 21:04; Start 07/05/19 at 16:00; Stop 07/06/19 at 02:42; Status DC Albumin Human 500 ml @ 125 mls/hr PRN BID PRN IV After every 2L NSS & BP < 90mm Last administered on 07/14/19at 14:20; Start 07/05/19 at 16:00 Iohexol (Omnipaque 300 Mg/ml) 60 ml 1X ONCE IV Last administered on 07/05/19at 17:20; Start 07/05/19 at 17:00; Stop 07/05/19 at 17:01; Status DC Info (CONTRAST GIVEN -- Rx MONITORING) 1 each PRN DAILY PRN MC SEE COMMENTS; Start 07/05/19 at 17:00; Stop 07/07/19 at 16:59; Status DC Meropenem 1 gm/ Sodium Chloride 100 ml @ 200 mls/hr Q8HRS IV Last administered on 07/06/19at 05:45; Start 07/05/19 at 20:00; Stop 07/06/19 at 08:48; Status DC Furosemide (Lasix) 40 mg 1X ONCE IVP Last administered on 07/05/19at 22:12; Start 07/05/19 at 22:30; Stop 07/05/19 at 22:31; Status DC Calcium Chloride 1000 mg/Sodium Chloride 110 ml @ 220 mls/hr 1X ONCE IV Last administered on 07/05/19at 22:11; Start 07/05/19 at 22:30; Stop 07/05/19 at 22:59; Status DC Albuterol Sulfate (Ventolin Neb Soln) 2.5 mg 1X ONCE NEB Last administered on 07/06/19at 00:56; Start 07/05/19 at 22:30; Stop 07/05/19 at 22:31; Status DC Insulin Human Regular (HumuLIN R VIAL) 5 unit 1X ONCE IV Last administered on 07/05/19at 22:14; Start 07/05/19 at 22:30; Stop 07/05/19 at 22:31; Status DC Magnesium Sulfate 50 ml @ 25 mls/hr 1X ONCE IV Last administered on 07/06/19at 02:57; Start 07/06/19 at 03:00; Stop 07/06/19 at 04:59; Status DC Calcium Gluconate 1000 mg/Sodium Chloride 110 ml @ 220 mls/hr 1X ONCE IV Last administered on 07/06/19at 02:46; Start 07/06/19 at 03:00; Stop 07/06/19 at 03:29; Status DC Sodium Chloride 1,000 ml @ 200 mls/hr Q5H IV Last administered on 07/06/19at 02:46; Start 07/06/19 at 03:00; Stop 07/06/19 at 10:21; Status DC Calcium Gluconate 1000 mg/Sodium Chloride 110 ml @ 220 mls/hr 1X ONCE IV Last administered on 07/06/19at 03:21; Start 07/06/19 at 03:30; Stop 07/06/19 at 03:59; Status DC Sodium Bicarbonate 50 meq/Sodium Chloride 1,050 ml @ 75 mls/hr Q14H IV Last administered on 07/10/19at 21:10; Start 07/06/19 at 07:30; Stop 07/11/19 at 10:28; Status DC Calcium Gluconate 2000 mg/Sodium Chloride 120 ml @ 220 mls/hr 1X ONCE IV Last administered on 07/06/19at 09:05; Start 07/06/19 at 07:30; Stop 07/06/19 at 08:02; Status DC Lidocaine HCl (Xylocaine-Mpf 1% 2ml Vial) 2 ml STK-MED ONCE .ROUTE ; Start 07/06/19 at 08:47; Stop 07/06/19 at 08:47; Status DC Meropenem 500 mg/ Sodium Chloride 50 ml @ 100 mls/hr Q12HR IV Last administered on 07/11/19at 21:01; Start 07/06/19 at 18:00; Stop 07/12/19 at 07:58; Status DC Lidocaine HCl (Buffered Lidocaine 1%) 3 ml STK-MED ONCE .ROUTE ; Start 07/06/19 at 09:46; Stop 07/06/19 at 09:46; Status DC Lidocaine HCl (Buffered Lidocaine 1%) 6 ml 1X ONCE INJ Last administered on 07/06/19at 10:26; Start 07/06/19 at 10:15; Stop 07/06/19 at 10:16; Status DC Info (Tpn Per Pharmacy) 1 each PRN DAILY PRN MC SEE COMMENTS Last administered on 07/14/19at 10:00; Start 07/06/19 at 12:00 Sodium Chloride 1,000 ml @ 1,000 mls/hr Q1H PRN IV hypotension; Start 07/06/19 at 12:07; Stop 07/06/19 at 18:06; Status DC Diphenhydramine HCl (Benadryl) 25 mg 1X PRN PRN IV ITCHING; Start 07/06/19 at 12:15; Stop 07/07/19 at 12:14; Status DC Diphenhydramine HCl (Benadryl) 25 mg 1X PRN PRN IV ITCHING; Start 07/06/19 at 12:15; Stop 07/07/19 at 12:14; Status DC Sodium Chloride 1,000 ml @ 400 mls/hr Q2H30M PRN IV PATENCY; Start 07/06/19 at 12:07; Stop 07/07/19 at 00:06; Status DC Info (PHARMACY MONITORING -- do not chart) 1 each PRN DAILY PRN MC SEE COMMENTS; Start 07/06/19 at 12:15; Stop 07/08/19 at 08:13; Status DC Sodium Chloride 90 meq/Calcium Gluconate 10 meq/ Multivitamins 10 ml/Chromium/ Copper/Manganese/ Seleni/Zn 1 ml/ Total Parenteral Nutrition/Amino Acids/Dextrose/ Fat Emulsion Intravenous 55.005 ml @ 2.292 mls/hr TPN CONT IV ; Start 07/06/19 at 22:00; Stop 07/06/19 at 12:33; Status DC Info (Tpn Per Pharmacy) 1 each PRN DAILY PRN MC SEE COMMENTS; Start 07/06/19 at 12:30; Status UNV Sodium Chloride 90 meq/Calcium Gluconate 10 meq/ Multivitamins 10 ml/Chromium/ Copper/Manganese/ Seleni/Zn 0.5 ml/ Total Parenteral Nutrition/Amino Acids/Dextrose/ Fat Emulsion Intravenous 1,512 ml @ 63 mls/hr TPN CONT IV Last administered on 07/06/19at 22:06; Start 07/06/19 at 22:00; Stop 07/07/19 at 21:59; Status DC Calcium Carbonate/ Glycine (Tums) 500 mg PRN AFTMEALHC PRN PO INDIGESTION; Start 07/06/19 at 17:45 Calcium Gluconate (Calcium Gluconate) 2,000 mg 1X ONCE IVP Last administered on 07/07/19at 02:19; Start 07/07/19 at 02:15; Stop 07/07/19 at 02:16; Status DC Calcium Chloride 3000 mg/Sodium Chloride 1,030 ml @ 50 mls/hr [id number] IV Last administered on 07/09/19at 02:17; Start 07/07/19 at 08:00; Stop 07/09/19 at 15:23; Status DC Lorazepam (Ativan Inj) 1 mg PRN Q4HRS PRN IVP ANXIETY / AGITATION Last administered on 07/11/19at 00:34; Start 07/07/19 at 09:00 Sodium Chloride 1,000 ml @ 1,000 mls/hr Q1H PRN IV hypotension; Start 07/07/19 at 08:56; Stop 07/07/19 at 14:55; Status DC Albumin Human 200 ml @ 200 mls/hr 1X PRN PRN IV Hypotension; Start 07/07/19 at 09:00; Stop 07/07/19 at 14:59; Status DC Diphenhydramine HCl (Benadryl) 25 mg 1X PRN PRN IV ITCHING; Start 07/07/19 at 09:00; Stop 07/08/19 at 08:59; Status DC Diphenhydramine HCl (Benadryl) 25 mg 1X PRN PRN IV ITCHING; Start 07/07/19 at 09:00; Stop 07/08/19 at 08:59; Status DC Sodium Chloride 1,000 ml @ 400 mls/hr Q2H30M PRN IV PATENCY; Start 07/07/19 at 08:56; Stop 07/07/19 at 20:55; Status DC Info (PHARMACY MONITORING -- do not chart) 1 each PRN DAILY PRN MC SEE COMMENTS; Start 07/07/19 at 09:00; Status UNV Info (PHARMACY MONITORING -- do not chart) 1 each PRN DAILY PRN MC SEE COMMENTS; Start 07/07/19 at 09:00; Stop 07/08/19 at 08:13; Status DC Digoxin (Lanoxin) 500 mcg 1X ONCE IV Last administered on 07/07/19at 10:04; Start 07/07/19 at 10:00; Stop 07/07/19 at 10:01; Status DC Digoxin (Lanoxin) 125 mcg 1X ONCE IV Last administered on 07/07/19at 17:10; Start 07/07/19 at 18:00; Stop 07/07/19 at 18:01; Status DC Magnesium Sulfate 100 ml @ 25 mls/hr 1X ONCE IV Last administered on 07/07/19at 12:48; Start 07/07/19 at 13:00; Stop 07/07/19 at 16:59; Status DC Sodium Chloride 90 meq/Magnesium Sulfate 10 meq/ Calcium Gluconate 20 meq/ Multivitamins 10 ml/Chromium/ Copper/Manganese/ Seleni/Zn 0.5 ml/ Total Parenteral Nutrition/Amino Acids/Dextrose/ Fat Emulsion Intravenous 1,512 ml @ 63 mls/hr TPN CONT IV Last administered on 07/07/19at 22:25; Start 07/07/19 at 22:00; Stop 07/08/19 at 21:59; Status DC Sodium Chloride 1,000 ml @ 1,000 mls/hr Q1H PRN IV hypotension; Start 07/08/19 at 08:05; Stop 07/08/19 at 14:04; Status DC Albumin Human 200 ml @ 200 mls/hr 1X ONCE IV Last administered on 07/08/19at 08:57; Start 07/08/19 at 08:15; Stop 07/08/19 at 09:14; Status DC Diphenhydramine HCl (Benadryl) 25 mg 1X PRN PRN IV ITCHING; Start 07/08/19 at 08:15; Stop 07/09/19 at 08:14; Status DC Diphenhydramine HCl (Benadryl) 25 mg 1X PRN PRN IV ITCHING; Start 07/08/19 at 08:15; Stop 07/09/19 at 08:14; Status DC Sodium Chloride 1,000 ml @ 400 mls/hr Q2H30M PRN IV PATENCY; Start 07/08/19 at 08:05; Stop 07/08/19 at 20:04; Status DC Info (PHARMACY MONITORING -- do not chart) 1 each PRN DAILY PRN MC SEE COMMENTS; Start 07/08/19 at 08:15; Stop 07/12/19 at 07:57; Status DC Sodium Chloride 90 meq/Potassium Chloride 15 meq/ Potassium Phosphate 10 mmol/ Magnesium Sulfate 10 meq/Calcium Gluconate 20 meq/ Multivitamins 10 ml/Chromium/ Copper/Manganese/ Seleni/Zn 0.5 ml/ Total Parenteral Nutrition/Amino Acids/Dextrose/ Fat Emulsion Intravenous 1,512 ml @ 63 mls/hr TPN CONT IV Last administered on 07/08/19at 21:01; Start 07/08/19 at 22:00; Stop 07/09/19 at 21:59; Status DC Potassium Chloride/Water 100 ml @ 100 mls/hr 1X ONCE IV Last administered on 07/08/19at 14:09; Start 07/08/19 at 14:00; Stop 07/08/19 at 14:59; Status DC Benzocaine (Hurricaine One) 1 spray 1X ONCE MM Last administered on 07/08/19at 16:38; Start 07/08/19 at 14:30; Stop 07/08/19 at 14:31; Status DC Lidocaine HCl (Glydo (Lidocaine) Jelly) 1 ramu 1X ONCE MM Last administered on 07/08/19at 16:38; Start 07/08/19 at 14:30; Stop 07/08/19 at 14:31; Status DC Linezolid/Dextrose 300 ml @ 300 mls/hr Q12HR IV Last administered on 07/14/19at 10:24; Start 07/08/19 at 20:00 Acetaminophen (Tylenol) 650 mg PRN Q6HRS PRN PO MILD PAIN / TEMP; Start 07/09/19 at 03:30; Stop 07/09/19 at 03:36; Status DC Acetaminophen (Tylenol) 650 mg PRN Q6HRS PRN PEG MILD PAIN / TEMP Last administered on 07/14/19at 07:35; Start 07/09/19 at 03:36 Sodium Chloride 1,000 ml @ 1,000 mls/hr Q1H PRN IV hypotension; Start 07/09/19 at 07:50; Stop 07/09/19 at 13:49; Status DC Albumin Human 200 ml @ 200 mls/hr 1X PRN PRN IV Hypotension; Start 07/09/19 at 08:00; Stop 07/09/19 at 13:59; Status DC Sodium Chloride (Normal Saline Flush) 10 ml 1X PRN PRN IV AP catheter pack; Start 07/09/19 at 08:00; Stop 07/10/19 at 07:59; Status DC Sodium Chloride (Normal Saline Flush) 10 ml 1X PRN PRN IV [employer] catheter pack; Start 07/09/19 at 08:00; Stop 07/10/19 at 07:59; Status DC Sodium Chloride 1,000 ml @ 400 mls/hr Q2H30M PRN IV PATENCY; Start 07/09/19 at 07:50; Stop 07/09/19 at 19:49; Status DC Info (PHARMACY MONITORING -- do not chart) 1 each PRN DAILY PRN MC SEE COMMENTS; Start 07/09/19 at 08:00; Status UNV Info (PHARMACY MONITORING -- do not chart) 1 each PRN DAILY PRN MC SEE COMMENTS; Start 07/09/19 at 08:00; Stop 07/11/19 at 08:25; Status DC Sodium Chloride 90 meq/Potassium Chloride 15 meq/ Potassium Phosphate 10 mmol/ Magnesium Sulfate 10 meq/Calcium Gluconate 20 meq/ Multivitamins 10 ml/Chromium/ Copper/Manganese/ Seleni/Zn 0.5 ml/ Total Parenteral Nutrition/Amino Acids/Dextrose/ Fat Emulsion Intravenous 1,512 ml @ 63 mls/hr TPN CONT IV Last administered on 07/09/19at 20:57; Start 07/09/19 at 22:00; Stop 07/10/19 at 21:59; Status DC Sodium Chloride 90 meq/Potassium Chloride 15 meq/ Potassium Phosphate 15 mmol/ Magnesium Sulfate 10 meq/Calcium Gluconate 20 meq/ Multivitamins 10 ml/Chromium/ Copper/Manganese/ Seleni/Zn 0.5 ml/ Total Parenteral Nutrition/Amino Acids/Dextrose/ Fat Emulsion Intravenous 1,512 ml @ 63 mls/hr TPN CONT IV ; Start 07/10/19 at 22:00; Stop 07/10/19 at 14:16; Status DC Sodium Chloride 90 meq/Potassium Chloride 15 meq/ Potassium Phosphate 15 mmol/ Magnesium Sulfate 10 meq/Calcium Gluconate 20 meq/ Multivitamins 10 ml/Chromium/ Copper/Manganese/ Seleni/Zn 0.5 ml/ Total Parenteral Nutrition/Amino Acids/Dextrose/ Fat Emulsion Intravenous 1,200 ml @ 50 mls/hr TPN CONT IV ; Start 07/10/19 at 22:00; Stop 07/10/19 at 14:17; Status DC Sodium Chloride 90 meq/Potassium Chloride 15 meq/ Potassium Phosphate 10 mmol/ Magnesium Sulfate 10 meq/Calcium Gluconate 20 meq/ Multivitamins 10 ml/Chromium/ Copper/Manganese/ Seleni/Zn 0.5 ml/ Total Parenteral Nutrition/Amino Acids/Dextrose/ Fat Emulsion Intravenous 1,200 ml @ 50 mls/hr TPN CONT IV Last administered on 07/10/19at 23:29; Start 07/10/19 at 22:00; Stop 07/11/19 at 21:59; Status DC Sodium Chloride 1,000 ml @ 1,000 mls/hr Q1H PRN IV hypotension; Start 07/11/19 at 07:28; Stop 07/11/19 at 13:27; Status DC Albumin Human 200 ml @ 200 mls/hr 1X ONCE IV Last administered on 07/11/19at 08:51; Start 07/11/19 at 07:30; Stop 07/11/19 at 08:29; Status DC Diphenhydramine HCl (Benadryl) 25 mg 1X PRN PRN IV ITCHING; Start 07/11/19 at 07:30; Stop 07/12/19 at 07:29; Status DC Diphenhydramine HCl (Benadryl) 25 mg 1X PRN PRN IV ITCHING; Start 07/11/19 at 07:30; Stop 07/12/19 at 07:29; Status DC Sodium Chloride 1,000 ml @ 400 mls/hr Q2H30M PRN IV PATENCY; Start 07/11/19 at 07:28; Stop 07/11/19 at 19:27; Status DC Info (PHARMACY MONITORING -- do not chart) 1 each PRN DAILY PRN MC SEE COMMENTS; Start 07/11/19 at 07:30 Metronidazole 100 ml @ 100 mls/hr Q6HRS IV Last administered on 07/14/19at 11:57; Start 07/11/19 at 08:30 Micafungin Sodium 100 mg/Dextrose 100 ml @ 100 mls/hr Q24H IV Last administered on 07/14/19at 08:28; Start 07/11/19 at 09:00 Propofol 0 ml @ As Directed STK-MED ONCE IV ; Start 07/11/19 at 07:53; Stop 07/11/19 at 07:53; Status DC Etomidate (Amidate) 20 mg STK-MED ONCE IV ; Start 07/11/19 at 07:53; Stop at 07:54; Status DC Midazolam HCl (Versed) 5 mg STK-MED ONCE .ROUTE ; Start 07/11/19 at 07:57; Stop 07/11/19 at 07:57; Status DC Fentanyl Citrate 30 ml @ 0 mls/hr CONT PRN IV SEE PROTOCOL Last administered on 07/14/19at 08:52; Start 07/11/19 at 08:15 Artificial Tears (Artificial Tears) 1 drop PRN Q1HR PRN OU DRY EYE; Start 07/11/19 at 08:15 Midazolam HCl 50 mg/Sodium Chloride 50 ml @ 0 mls/hr CONT PRN IV SEE PROTOCOL Last administered on 07/14/19at 11:23; Start 07/11/19 at 08:15 Etomidate (Amidate) 8 mg 1X ONCE IV Last administered on 07/11/19at 08:33; Start 07/11/19 at 08:30; Stop 07/11/19 at 08:31; Status DC Succinylcholine Chloride (Anectine) 120 mg 1X ONCE IV Last administered on 07/11/19at 08:34; Start 07/11/19 at 08:30; Stop 07/11/19 at 08:31; Status DC Midazolam HCl (Versed) 5 mg 1X ONCE IV ; Start 07/11/19 at 08:30; Stop 07/11/19 at 08:31; Status DC Potassium Chloride 15 meq/ Bicarbonate Dialysis Soln w/ out KCl 5,007.5 ml @ 1,000 mls/ hr Q5H1M IV Last administered on 07/12/19at 11:11; Start 07/11/19 at 12:00; Stop 07/12/19 at 11:15; Status DC Potassium Chloride 15 meq/ Bicarbonate Dialysis Soln w/ out KCl 5,007.5 ml @ 1,000 mls/ hr Q5H1M IV Last administered on 07/12/19at 11:12; Start 07/11/19 at 12:00; Stop 07/12/19 at 11:17; Status DC Potassium Chloride 15 meq/ Bicarbonate Dialysis Soln w/ out KCl 5,007.5 ml @ 1,000 mls/ hr Q5H1M IV Last administered on 07/12/19at 11:11; Start 07/11/19 at 12:00; Stop 07/12/19 at 11:19; Status DC Sodium Chloride 90 meq/Potassium Chloride 15 meq/ Potassium Phosphate 10 mmol/ Magnesium Sulfate 10 meq/Calcium Gluconate 20 meq/ Multivitamins 10 ml/Chromium/ Copper/Manganese/ Seleni/Zn 0.5 ml/ Total Parenteral Nutrition/Amino Acids/Dextrose/ Fat Emulsion Intravenous 1,400 ml @ 58.333 mls/ hr TPN CONT IV Last administered on 07/11/19at 21:42; Start 07/11/19 at 22:00; Stop 07/12/19 at 21:59; Status DC Heparin Sodium (Porcine) (Heparin Sodium) 5,000 unit Q8HRS SQ Last administered on 07/14/19at 05:35; Start 07/11/19 at 15:00 Meropenem 500 mg/ Sodium Chloride 50 ml @ 100 mls/hr Q6HRS IV Last administered on 07/13/19at 06:00; Start 07/12/19 at 09:00; Stop 07/13/19 at 07:29; Status DC Potassium Phosphate 20 mmol/ Sodium Chloride 106.6667 ml @ 51.667 m... 1X ONCE IV Last administered on 07/12/19at 11:22; Start 07/12/19 at 10:15; Stop 07/12/19 at 12:18; Status DC Acetaminophen (Tylenol Supp) 650 mg PRN Q6HRS PRN ND MILD PAIN / TEMP Last administered on 07/12/19at 10:37; Start 07/12/19 at 10:30 Potassium Chloride/Water 100 ml @ 100 mls/hr Q1H IV Last administered on 07/12/19at 12:12; Start 07/12/19 at 11:00; Stop 07/12/19 at 12:59; Status DC Potassium Chloride 20 meq/ Bicarbonate Dialysis Soln w/ out KCl 5,010 ml @ 1,000 mls/hr Q5H1M IV Last administered on 07/13/19at 08:48; Start 07/12/19 at 12:00; Stop 07/13/19 at 13:03; Status DC Potassium Chloride 20 meq/ Bicarbonate Dialysis Soln w/ out KCl 5,010 ml @ 1,000 mls/hr Q5H1M IV Last administered on 07/14/19at 14:33; Start 07/12/19 at 11:30 Potassium Chloride 20 meq/ Bicarbonate Dialysis Soln w/ out KCl 5,010 ml @ 1,000 mls/hr Q5H1M IV Last administered on 07/14/19at 14:31; Start 07/12/19 at 11:30 Sodium Chloride 90 meq/Potassium Chloride 15 meq/ Potassium Phosphate 15 mmol/ Magnesium Sulfate 10 meq/Calcium Gluconate 15 meq/ Multivitamins 10 ml/Chromium/ Copper/Manganese/ Seleni/Zn 0.5 ml/ Total Parenteral Nutrition/Amino Acids/Dextrose/ Fat Emulsion Intravenous 1,400 ml @ 58.333 mls/ hr TPN CONT IV Last administered on 07/12/19at 22:17; Start 07/12/19 at 22:00; Stop 07/13/19 at 21:59; Status DC Cefepime HCl (Maxipime) 2 gm Q12HR IVP Last administered on 07/14/19at 08:28; Start 07/13/19 at 09:00 Daptomycin 500 mg/ Sodium Chloride 50 ml @ 100 mls/hr Q48H IV Last administered on 07/13/19at 08:45; Start 07/13/19 at 08:30 Lidocaine HCl (Buffered Lidocaine 1%) 3 ml 1X ONCE INJ Last administered on 07/13/19at 10:27; Start 07/13/19 at 10:30; Stop 07/13/19 at 10:31; Status DC Potassium Phosphate 20 mmol/ Sodium Chloride 106.6667 ml @ 51.667 m... 1X ONCE IV Last administered on 07/13/19at 12:51; Start 07/13/19 at 13:00; Stop 07/13/19 at 15:03; Status DC Sodium Chloride 90 meq/Potassium Chloride 15 meq/ Potassium Phosphate 18 mmol/ M agnesium Sulfate 8 meq/Calcium Gluconate 15 meq/ Multivitamins 10 ml/Chromium/ Copper/Manganese/ Seleni/Zn 0.5 ml/ Total Parenteral Nutrition/Amino Acids/Dextrose/ Fat Emulsion Intravenous 1,400 ml @ 58.333 mls/ hr TPN CONT IV Last administered on 07/13/19at 22:16; Start 07/13/19 at 22:00; Stop 07/14/19 at 21:59 Potassium Chloride 20 meq/ Bicarbonate Dialysis Soln w/ out KCl 5,010 ml @ 1,000 mls/hr Q5H1M IV Last administered on 07/14/19at 14:32; Start 07/13/19 at 16:00 Multi-Ingred Cream/Lotion/Oil/ Oint (Artificial Tears Eye Ointment) 1 ramu PRN Q1HR PRN OU DRY EYE; Start 07/13/19 at 17:30 Sodium Chloride 90 meq/Potassium Chloride 15 meq/ Potassium Phosphate 18 mmol/ Magnesium Sulfate 8 meq/Calcium Gluconate 15 meq/ Multivitamins 10 ml/Chromium/ Copper/Manganese/ Seleni/Zn 0.5 ml/ Total Parenteral Nutrition/Amino Acids/Dextrose/ Fat Emulsion Intravenous 1,400 ml @ 58.333 mls/ hr TPN CONT IV ; Start 07/14/19 at 22:00; Stop 07/15/19 at 21:59 Albumin Human 500 ml @ 125 mls/hr 1X ONCE IV ; Start 07/14/19 at 14:15; Stop 07/14/19 at 18:14 Active Scripts Active Reported Bisoprolol Fumarate 5 Mg Tablet 10 Mg PO DAILY Allergies Allergies: Coded Allergies: codeine (Verified Allergy, Intermediate, rash, 07/04/19) ROS Review of System Unobtainable Physical Exam Physical Examination General: Well-developed, well-nourished white female. Some mottling of the skin HEENT: Normocephalic andatraumatic. Tympanic membranes clear.Temporal arteriespulsatile and nontender.Fundoscopic exam unremarkable Neck: Supple without bruit, no meningismus Musculoskeletal: Stability:see neurologic. Gait exam:see neurologic. Tone:see neurologi c.Strength:see neurologic. Neurological: Mental Status:orientation, memory, attention span/concentration, language, fund of knowledge: Intubated, sedated, on ventilator and pressors. Cranial Nerves:Pupils equal and reactive to light. There is no facial asymmetry. All other cranial related problems are negative except as mentioned before.Reflexes:1+ and symmetric with silent plantar responses. Motor:No response to pain. Coordination & gait:not testable. Sensory:not testable. Vitals VITALS Vital Signs Date Time Temp Pulse Resp B/P (MAP) Pulse Ox O2 Delivery O2 Flow Rate FiO2 07/14/19 14:00 94 26 109/43 (65) 100 Ventilator 07/14/19 12:00 98.8 98.8 07/13/19 17:59 6.0 Labs Labs Laboratory Tests Test 07/12/19 16:30 07/13/19 00:02 07/13/19 00:55 07/13/19 06:00 Sodium Level 139 mmol/L (136-145) 139 mmol/L (136-145) 137 mmol/L (136-145) Potassium Level 3.7 mmol/L (3.5-5.1) 3.7 mmol/L (3.5-5.1) 3.6 mmol/L (3.5-5.1) Chloride Level 103 mmol/L (98-107) 103 mmol/L (98-107) 103 mmol/L (98-107) Carbon Dioxide Level 29 mmol/L (21-32) 23 mmol/L (21-32) 26 mmol/L (21-32) Anion Gap 7 (6-14) 13 (6-14) 8 (6-14) Blood Urea Nitrogen 36 mg/dL (7-20) 42 mg/dL (7-20) 50 mg/dL (7-20) Creatinine 2.1 mg/dL (0.6-1.0) 2.2 mg/dL (0.6-1.0) 2.7 mg/dL (0.6-1.0) Estimated GFR (Cockcroft-Gault) 25.0 23.7 18.7 Glucose Level 280 mg/dL (70-99) 274 mg/dL (70-99) 270 mg/dL (70-99) Calcium Level 7.2 mg/dL (8.5-10.1) 7.7 mg/dL (8.5-10.1) 7.5 mg/dL (8.5-10.1) Phosphorus Level 2.5 mg/dL (2.6-4.7) 2.4 mg/dL (2.6-4.7) 2.3 mg/dL (2.6-4.7) Magnesium Level 2.3 mg/dL (1.8-2.4) 2.3 mg/dL (1.8-2.4) 2.3 mg/dL (1.8-2.4) Glucose (Fingerstick) 274 mg/dL (70-99) White Blood Count 26.3 x10^3/uL (4.0-11.0) Red Blood Count 2.41 x10^6/uL (3.50-5.40) Hemoglobin 7.8 g/dL (12.0-15.5) Hematocrit 23.6 % (36.0-47.0) Mean Corpuscular Volume 98 fL (79-100) Mean Corpuscular Hemoglobin 33 pg (25-35) Mean Corpuscular Hemoglobin Concent 33 g/dL (31-37) Red Cell Distribution Width 13.4 % (11.5-14.5) Platelet Count 292 x10^3/uL (140-400) Neutrophils (%) (Auto) 90 % (31-73) Lymphocytes (%) (Auto) 4 % (24-48) Monocytes (%) (Auto) 5 % (0-9) Eosinophils (%) (Auto) 1 % (0-3) Basophils (%) (Auto) 0 % (0-3) Neutrophils # (Auto) 23.8 x10^3/uL (1.8-7.7) Lymphocytes # (Auto) 1.0 x10^3/uL (1.0-4.8) Monocytes # (Auto) 1.2 x10^3/uL (0.0-1.1) Eosinophils # (Auto) 0.3 x10^3/uL (0.0-0.7) Basophils # (Auto) 0.0 x10^3/uL (0.0-0.2) Segmented Neutrophils % 73 % (35-66) Band Neutrophils % 19 % (0-9) Lymphocytes % 3 % (24-48) Monocytes % 1 % (0-10) Metamyelocytes % 3 % (0-0) Myelocytes % 1 % (0-0) Toxic Granulation Slight Dohle Bodies Few Platelet Estimate Adequate (ADEQUATE) BUN/Creatinine Ratio 19 (6-20) Total Bilirubin 0.4 mg/dL (0.2-1.0) Aspartate Amino Transf (AST/SGOT) 27 U/L (15-37) Alanine Aminotransferase (ALT/SGPT) 12 U/L (14-59) Alkaline Phosphatase 82 U/L (46-116) Total Protein 4.3 g/dL (6.4-8.2) Albumin 1.4 g/dL (3.4-5.0) Albumin/Globulin Ratio 0.5 (1.0-1.7) Test 07/13/19 08:00 07/13/19 08:55 07/13/19 15:00 07/13/19 17:38 Lactic Acid Level 1.4 mmol/L (0.4-2.0) O2 Saturation 97 % (92-99) Arterial Blood pH 7.45 (7.35-7.45) Arterial Blood pCO2 at Patient Temp 32 mmHg (35-46) Arterial Blood pO2 at Patient Temp 99 mmHg (75-108) Arterial Blood HCO3 22 mmol/L (21-28) Arterial Blood Base Excess -2 mmol/L (-3-3) FiO2 40 Sodium Level 141 mmol/L (136-145) Potassium Level 3.8 mmol/L (3.5-5.1) Chloride Level 104 mmol/L (98-107) Carbon Dioxide Level 25 mmol/L (21-32) Anion Gap 12 (6-14) Blood Urea Nitrogen 49 mg/dL (7-20) Creatinine 2.5 mg/dL (0.6-1.0) Estimated GFR (Cockcroft-Gault) 20.5 Glucose Level 290 mg/dL (70-99) Calcium Level 7.4 mg/dL (8.5-10.1) Phosphorus Level 3.9 mg/dL (2.6-4.7) Magnesium Level 2.2 mg/dL (1.8-2.4) Glucose (Fingerstick) 253 mg/dL (70-99) Test 07/13/19 21:00 07/14/19 00:20 07/14/19 05:20 07/14/19 05:32 Sodium Level 138 mmol/L (136-145) 137 mmol/L (136-145) Potassium Level 3.7 mmol/L (3.5-5.1) 3.8 mmol/L (3.5-5.1) Chloride Level 104 mmol/L (98-107) 103 mmol/L (98-107) Carbon Dioxide Level 27 mmol/L (21-32) 22 mmol/L (21-32) Anion Gap 7 (6-14) 12 (6-14) Blood Urea Nitrogen 44 mg/dL (7-20) 59 mg/dL (7-20) Creatinine 2.0 mg/dL (0.6-1.0) 2.5 mg/dL (0.6-1.0) Estimated GFR (Cockcroft-Gault) 26.5 20.5 Glucose Level 195 mg/dL (70-99) 279 mg/dL (70-99) Calcium Level 7.5 mg/dL (8.5-10.1) 7.7 mg/dL (8.5-10.1) Phosphorus Level 3.6 mg/dL (2.6-4.7) Magnesium Level 2.3 mg/dL (1.8-2.4) Glucose (Fingerstick) 210 mg/dL (70-99) 269 mg/dL (70-99) White Blood Count 23.8 x10^3/uL (4.0-11.0) Red Blood Count 1.97 x10^6/uL (3.50-5.40) Hemoglobin 6.5 g/dL (12.0-15.5) Hematocrit 19.3 % (36.0-47.0) Mean Corpuscular Volume 98 fL (79-100) Mean Corpuscular Hemoglobin 33 pg (25-35) Mean Corpuscular Hemoglobin Concent 34 g/dL (31-37) Red Cell Distribution Width 13.8 % (11.5-14.5) Platelet Count 274 x10^3/uL (140-400) Neutrophils (%) (Auto) 89 % (31-73) Lymphocytes (%) (Auto) 5 % (24-48) Monocytes (%) (Auto) 4 % (0-9) Eosinophils (%) (Auto) 1 % (0-3) Basophils (%) (Auto) 0 % (0-3) Neutrophils # (Auto) 21.2 x10^3/uL (1.8-7.7) Lymphocytes # (Auto) 1.2 x10^3/uL (1.0-4.8) Monocytes # (Auto) 1.0 x10^3/uL (0.0-1.1) Eosinophils # (Auto) 0.3 x10^3/uL (0.0-0.7) Basophils # (Auto) 0.1 x10^3/uL (0.0-0.2) BUN/Creatinine Ratio 24 (6-20) Total Bilirubin 0.6 mg/dL (0.2-1.0) Aspartate Amino Transf (AST/SGOT) 37 U/L (15-37) Alanine Aminotransferase (ALT/SGPT) 16 U/L (14-59) Alkaline Phosphatase 83 U/L (46-116) Total Protein 4.3 g/dL (6.4-8.2) Albumin 1.9 g/dL (3.4-5.0) Albumin/Globulin Ratio 0.8 (1.0-1.7) Test 07/14/19 07:45 07/14/19 10:30 07/14/19 12:01 O2 Saturation 96 % (92-99) Arterial Blood pH 7.43 (7.35-7.45) Arterial Blood pCO2 at Patient Temp 32 mmHg (35-46) Arterial Blood pO2 at Patient Temp 94 mmHg (75-108) Arterial Blood HCO3 21 mmol/L (21-28) Arterial Blood Base Excess -3 mmol/L (-3-3) FiO2 40% Influenza Type A Antigen Negative (NEGATIVE) Influenza Type B Antigen Negative (NEGATIVE) Glucose (Fingerstick) 264 mg/dL (70-99) Laboratory Tests Test 07/13/19 15:00 07/13/19 17:38 07/13/19 21:00 07/14/19 00:20 Sodium Level 141 mmol/L (136-145) 138 mmol/L (136-145) Potassium Level 3.8 mmol/L (3.5-5.1) 3.7 mmol/L (3.5-5.1) Chloride Level 104 mmol/L (98-107) 104 mmol/L (98-107) Carbon Dioxide Level 25 mmol/L (21-32) 27 mmol/L (21-32) Anion Gap 12 (6-14) 7 (6-14) Blood Urea Nitrogen 49 mg/dL (7-20) 44 mg/dL (7-20) Creatinine 2.5 mg/dL (0.6-1.0) 2.0 mg/dL (0.6-1.0) Estimated GFR (Cockcroft-Gault) 20.5 26.5 Glucose Level 290 mg/dL (70-99) 195 mg/dL (70-99) Calcium Level 7.4 mg/dL (8.5-10.1) 7.5 mg/dL (8.5-10.1) Phosphorus Level 3.9 mg/dL (2.6-4.7) 3.6 mg/dL (2.6-4.7) Magnesium Level 2.2 mg/dL (1.8-2.4) 2.3 mg/dL (1.8-2.4) Glucose (Fingerstick) 253 mg/dL (70-99) 210 mg/dL (70-99) Test 07/14/19 05:20 07/14/19 05:32 07/14/19 07:45 07/14/19 10:30 White Blood Count 23.8 x10^3/uL (4.0-11.0) Red Blood Count 1.97 x10^6/uL (3.50-5.40) Hemoglobin 6.5 g/dL (12.0-15.5) Hematocrit 19.3 % (36.0-47.0) Mean Corpuscular Volume 98 fL (79-100) Mean Corpuscular Hemoglobin 33 pg (25-35) Mean Corpuscular Hemoglobin Concent 34 g/dL (31-37) Red Cell Distribution Width 13.8 % (11.5-14.5) Platelet Count 274 x10^3/uL (140-400) Neutrophils (%) (Auto) 89 % (31-73) Lymphocytes (%) (Auto) 5 % (24-48) Monocytes (%) (Auto) 4 % (0-9) Eosinophils (%) (Auto) 1 % (0-3) Basophils (%) (Auto) 0 % (0-3) Neutrophils # (Auto) 21.2 x10^3/uL (1.8-7.7) Lymphocytes # (Auto) 1.2 x10^3/uL (1.0-4.8) Monocytes # (Auto) 1.0 x10^3/uL (0.0-1.1) Eosinophils # (Auto) 0.3 x10^3/uL (0.0-0.7) Basophils # (Auto) 0.1 x10^3/uL (0.0-0.2) Sodium Level 137 mmol/L (136-145) Potassium Level 3.8 mmol/L (3.5-5.1) Chloride Level 103 mmol/L (98-107) Carbon Dioxide Level 22 mmol/L (21-32) Anion Gap 12 (6-14) Blood Urea Nitrogen 59 mg/dL (7-20) Creatinine 2.5 mg/dL (0.6-1.0) Estimated GFR (Cockcroft-Gault) 20.5 BUN/Creatinine Ratio 24 (6-20) Glucose Level 279 mg/dL (70-99) Calcium Level 7.7 mg/dL (8.5-10.1) Total Bilirubin 0.6 mg/dL (0.2-1.0) Aspartate Amino Transf (AST/SGOT) 37 U/L (15-37) Alanine Aminotransferase (ALT/SGPT) 16 U/L (14-59) Alkaline Phosphatase 83 U/L (46-116) Total Protein 4.3 g/dL (6.4-8.2) Albumin 1.9 g/dL (3.4-5.0) Albumin/Globulin Ratio 0.8 (1.0-1.7) Glucose (Fingerstick) 269 mg/dL (70-99) O2 Saturation 96 % (92-99) Arterial Blood pH 7.43 (7.35-7.45) Arterial Blood pCO2 at Patient Temp 32 mmHg (35-46) Arterial Blood pO2 at Patient Temp 94 mmHg (75-108) Arterial Blood HCO3 21 mmol/L (21-28) Arterial Blood Base Excess -3 mmol/L (-3-3) FiO2 40% Influenza Type A Antigen Negative (NEGATIVE) Influenza Type B Antigen Negative (NEGATIVE) Test 07/14/19 12:01 Glucose (Fingerstick) 264 mg/dL (70-99) Assessment/Plan Assessment/Plan Impression: Metabolic encephalopathy, she may have had a seizure this morning. The question is why did she suddenly become unresponsive. Was this just respiratory failure? Did she have some sort of intracranial catastrophe? Medical issues: fever - 102.7, gallstone pancreatitis, hypotension related to sepsis, on levophed, leukocytosis, anemia, possible peripheral ischemia, acute kidney injury, hyperkalemia, metabolic acidosis on CRRT, acute hypoxic resp failure, intubated, hypocalcemia, prediabetes, hypertension history, salpingoitis, uterine fibroid, pain nausea. Recommendation: Unable to transfer for CT scan I will check an EEG at the bedside, patient will need to be off sedation for a couple hours first, will probably wait until tomorrow She should be adequately covered for seizures with her current sedating medications. Check coronavirus titers. Thank you for letting me help with the patient's care. ABI AHN MD Jul 14, 2019 14:50
[2019-07-14] MEDS ORDERED: TOTAL PARENTERAL NUTRITION IV SCH ×10 (22:00)
[2019-07-14] MEDS ORDERED: AMINO ACID IV SCH ×10 (22:00)
[2019-07-14] MEDS ORDERED: [UNRECOGNIZED DRUG - OTHER] IV SCH ×10 (22:00)
[2019-07-14] MEDS ORDERED: DEXTROSE 70% IV SCH ×10 (22:00)
[2019-07-14 23:41] LABS: CALCIUM 7.6 mg/dL (8.5-10.1); CREATININE 1.9 mg/dL (0.6-1.0); GFR 28.1; POTASSIUM 4.1 mmol/L (3.5-5.1)
[2019-07-15] VITALS (24 sets, daily range): BP systolic 82–133; BP diastolic 47–92
[2019-07-15] MEDS: POTASSIUM CHLORIDE 20 MEQ in DIALYSIS SOLUTION BGK 0/2.5 5,000 ML IV SCH ×17 (03:02→21:42)
[2019-07-15] MEDS: HEPARIN for SUB-Q USE 5,000 UNIT/ML VIAL. SQ SCH ×3 (06:00→21:34)
[2019-07-15] MEDS: METOPROLOL TARTRATE 5 MG/5 ML VIAL. IVP SCH ×3 (06:00→18:00)
[2019-07-15] MEDS: INSULIN LISPRO 300 UNITS/3 ML VIAL. SQ SCH ×3 (06:01→18:12)
[2019-07-15 07:22] LABS: BASO # 0.1 x10^3/uL (0.0-0.2); BASO % 0 % (0-3); EOS # 0.6 x10^3/uL (0.0-0.7); EOS % 2 % (0-3); HEMATOCRIT 24.4 % (36.0-47.0); HEMOGLOBIN 7.8 g/dL (12.0-15.5); LYMPH # 1.3 x10^3/uL (1.0-4.8); LYMPH % 4 % (24-48); MEAN CORPUSCULAR HEMOGLOBIN 31 pg (25-35); MEAN CORPUSCULAR HGB CONC 32 g/dL (31-37); MEAN CORPUSCULAR VOLUME 97 fL (79-100); MONO # 1.1 x10^3/uL (0.0-1.1); MONO % 3 % (0-9); NEUT # 31.3 x10^3/uL (1.8-7.7); NEUT % 91 % (31-73); PLATELET COUNT 281 x10^3/uL (140-400); RED BLOOD COUNT 2.51 x10^6/uL (3.50-5.40); RED CELL DISTRIBUTION WIDTH 15.9 % (11.5-14.5); WHITE BLOOD COUNT 34.3 x10^3/uL (4.0-11.0)
--- NOTE | 2019-07-15 07:26 | PDOC ---
Infectious Disease Note Subjective Subjective Fever Tmax 100.6 Intubated FiO2 40% PEEP 8 On Levophed gtt this am - dosed increased with CRRT TPN ROS ROS unable to obtain Vital Sign Vital Signs Vital Signs Date Time Temp Pulse Resp B/P (MAP) Pulse Ox O2 Delivery O2 Flow Rate FiO2 07/15/19 06:00 111 18 100/65 (77) 98 Ventilator 07/15/19 04:00 98.8 98.8 07/15/19 02:06 6.0 Physical Exam PHYSICAL EXAM GENERAL:Intubated/sedated - generalizd anasarca has increased HEENT: Mild icterus. Oral mucosa very dry. NECK: Supple. LUNGS: Decreased breath sounds at the bases. HEART: S1, S2, tachycardia, regular ABDOMEN: Distended more, + BS. Rectal tube in place - soft : Lind EXTREMITIES: Trace edema, no cyanosis - mild increased mottled but and toes remain non ischemic in appearance but right colder than left - Rooke boots in place DERMATOLOGIC: Warm and dry. No generalized rash. CENTRAL NERVOUS SYSTEM: Intubated - rhythmic movements of head continue do not seem to coordinate with Vent IV: RIJ Temp HDC & RUE PICC - Left IJ Labs Lab Laboratory Tests Test 07/14/19 07:45 07/14/19 10:30 07/14/19 12:01 07/14/19 16:00 O2 Saturation 96 % (92-99) Arterial Blood pH 7.43 (7.35-7.45) Arterial Blood pCO2 at Patient Temp 32 mmHg (35-46) Arterial Blood pO2 at Patient Temp 94 mmHg (75-108) Arterial Blood HCO3 21 mmol/L (21-28) Arterial Blood Base Excess -3 mmol/L (-3-3) FiO2 40% Influenza Type A Antigen Negative (NEGATIVE) Influenza Type B Antigen Negative (NEGATIVE) Glucose (Fingerstick) 264 mg/dL (70-99) Magnesium Level 2.3 mg/dL (1.8-2.4) NJ-[id number]-Type Natriuretic Peptide 106 pg/mL (0-124) Test 07/14/19 23:20 07/15/19 05:57 Sodium Level 139 mmol/L (136-145) Potassium Level 4.1 mmol/L (3.5-5.1) Chloride Level 104 mmol/L (98-107) Carbon Dioxide Level 25 mmol/L (21-32) Anion Gap 10 (6-14) Blood Urea Nitrogen 48 mg/dL (7-20) Creatinine 1.9 mg/dL (0.6-1.0) Estimated GFR (Cockcroft-Gault) 28.1 Glucose Level 252 mg/dL (70-99) Glucose (Fingerstick) 255 mg/dL (70-99) 225 mg/dL (70-99) Calcium Level 7.6 mg/dL (8.5-10.1) Phosphorus Level 4.1 mg/dL (2.6-4.7) Magnesium Level 2.3 mg/dL (1.8-2.4) Micro ABD U/S 07/13 IMPRESSION: Poorly visualized pancreas but the portion visualized appears enlarged and hypoechoic consistent with history of pancreatitis. Cholelithiasis. Ascites. Mild hepatomegaly with diffuse fatty infiltration. STAT CXR and KUB reviewed on 07/10 Microbiology 07/06/19 Blood Culture - Final, Complete NO GROWTH AFTER 5 DAYS Objective Assessment Anasarca - worse Persistent rhythmic movements of head Fever - better - Flu neg antigen 07/13 ? reactive with pancreatitis vs ID - C- diff neg. S/p HD cath change with malfunction 07/12 - cults 07/11 neg Hypotension better- levophed started am 07/10 down to about 3 to 4 mics Leukocytosis - increased - ? reactive - trouble with CRRT/S/p PRBCs ? intra- abdominal Anemia - S/p PRBC 07/13 ? developing peripheral ischemia - better Acute pancreatitis, early developing necrosis -U/S 07/13 reviewed Cholelithiasis JUANA,Hyperkalemia, Metabolic acidosis on CRRT Acute hypoxic resp failure, intubated Hypocalcemia Prediabetes HTN 07/12 Impression: Replacement of a right internal jugular temporary dialysis catheter over a guidewire Plan Plan of Care Appreciate consult by Neurology F/u Blood cults 07/[address] ordered abd/pel but on CRRT will need when stable Added Flagyl and Micafungin 07/10 D/c Meropenem with fever and Leukocytosis - Began Cefepime and Dapto 07/12 Discont Zyvox (07/07) neg cults try to cut down on potential interactions today 07/14 f/u labs and cults No surgical plans at this time Electrolytes per primary Critically ill D/w Dr. Liu D/w nursing WILLY BARAKAT MD Jul 15, 2019 07:26
[2019-07-15 07:31] LABS: ALBUMIN 1.7 g/dL (3.4-5.0); ALBUMIN/GLOBULIN RATIO 0.6 (1.0-1.7); CALCIUM 7.7 mg/dL (8.5-10.1); CREATININE 1.6 mg/dL (0.6-1.0); GFR 34.3; POTASSIUM 4.4 mmol/L (3.5-5.1); TOTAL BILIRUBIN 0.5 mg/dL (0.2-1.0); TOTAL PROTEIN 4.5 g/dL (6.4-8.2)
[2019-07-15 07:42] LABS: MAGNESIUM 2.1 mg/dL (1.8-2.4); PHOSPHORUS 4.3 mg/dL (2.6-4.7)
--- NOTE | 2019-07-15 08:14 | RAD ---
Chest AP portable at 0709: Reason for examination: Ventilator patient. Comparison is made to previous study dated 07/08/2007. Endotracheal tube, NG tube, dialysis catheter, left central venous catheter and right PICC line remain in place. Inspiratory effort is poor. Heart and mediastinum are unremarkable. Lung lopez show continued presence of bilateral interstitial and alveolar opacities which are predominantly basilar as well as small bilateral pleural effusions. No acute disease is seen. IMPRESSION: Poor inspiratory effort with continued presence of bilateral interstitial and alveolar opacities and small pleural effusions. No significant change has occurred. Electronically signed by: Nicole Martin MD (07/15/2019 8:11 AM) [id number]
[2019-07-15] MEDS: CEFEPIME HCL IV Push 2 GM VIAL. IVP SCH ×2 (09:00→21:23)
[2019-07-15] MEDS: MICAFUNGIN 100 MG in IV DEXTROSE 5% 100ML 100 ML IV SCH (09:01)
[2019-07-15] MEDS: PANTOPRAZOLE IV PUSH 40 MG VIAL. IVP SCH (09:02)
--- NOTE | 2019-07-15 09:35 | PDOC ---
PROGRESS NOTES Assessment Problems Medical Problems: (1) Acute pancreatitis Status: Acute (2) Cholelithiasis Status: Acute Metabolic encephalopathy, she may have had a seizure 07/13. The question is why did she suddenly become unresponsive. Was this just respiratory failure? Did she have some sort of intracranial catastrophe? Medical issues: fever, gallstone pancreatitis, hypotension related to sepsis, on levophed, leukocytosis, anemia, possible peripheral ischemia, acute kidney injury, hyperkalemia, metabolic acidosis on CRRT, acute hypoxic resp failure, intubated, hypocalcemia, prediabetes, hypertension history, salpingoitis, uterine fibroid, pain nausea. Plan Unable to transfer for CT scan Await EEG She should be adequately covered for seizures with her current sedating medications. Check coronavirus titers. I left a message with family yesterday, unreturned Subjective none Objective Vital Signs Date Time Temp Pulse Resp B/P (MAP) Pulse Ox O2 Delivery O2 Flow Rate FiO2 07/15/19 06:00 111 18 100/65 (77) 98 Ventilator 07/15/19 04:00 98.8 98.8 07/15/19 02:06 6.0 Intake and Output 07/15/19 07:00 Intake Total 2741.47 ml Output Total 570 ml Balance 2171.47 ml IV Total 2391.47 ml Blood Product 300 ml Blood Product IV Normal Saline Flush 50 ml Output Urine Total 570 ml PHYSICAL EXAM Sedated on ventilator, unresponsive, nurse reports occasional twitching, I did not see any PERRL. No spontaneous extraocular movements CN: no focal findings. Muscle tone: normal. Muscle strength: no movement DTR: 0+ Plantar reflex: silent Gait: not examined Sensory exam: not cooperative. Cerebellar: not cooperative Review of Relevant I have reviewed the following items kolby (where applicable) has been applied. Labs Laboratory Tests Test 07/13/19 15:00 07/13/19 17:38 07/13/19 21:00 07/14/19 00:20 Sodium Level 141 mmol/L (136-145) 138 mmol/L (136-145) Potassium Level 3.8 mmol/L (3.5-5.1) 3.7 mmol/L (3.5-5.1) Chloride Level 104 mmol/L (98-107) 104 mmol/L (98-107) Carbon Dioxide Level 25 mmol/L (21-32) 27 mmol/L (21-32) Anion Gap 12 (6-14) 7 (6-14) Blood Urea Nitrogen 49 mg/dL (7-20) 44 mg/dL (7-20) Creatinine 2.5 mg/dL (0.6-1.0) 2.0 mg/dL (0.6-1.0) Estimated GFR (Cockcroft-Gault) 20.5 26.5 Glucose Level 290 mg/dL (70-99) 195 mg/dL (70-99) Calcium Level 7.4 mg/dL (8.5-10.1) 7.5 mg/dL (8.5-10.1) Phosphorus Level 3.9 mg/dL (2.6-4.7) 3.6 mg/dL (2.6-4.7) Magnesium Level 2.2 mg/dL (1.8-2.4) 2.3 mg/dL (1.8-2.4) Glucose (Fingerstick) 253 mg/dL (70-99) 210 mg/dL (70-99) Test 07/14/19 05:20 07/14/19 05:32 07/14/19 07:45 07/14/19 10:30 White Blood Count 23.8 x10^3/uL (4.0-11.0) Red Blood Count 1.97 x10^6/uL (3.50-5.40) Hemoglobin 6.5 g/dL (12.0-15.5) Hematocrit 19.3 % (36.0-47.0) Mean Corpuscular Volume 98 fL (79-100) Mean Corpuscular Hemoglobin 33 pg (25-35) Mean Corpuscular Hemoglobin Concent 34 g/dL (31-37) Red Cell Distribution Width 13.8 % (11.5-14.5) Platelet Count 274 x10^3/uL (140-400) Neutrophils (%) (Auto) 89 % (31-73) Lymphocytes (%) (Auto) 5 % (24-48) Monocytes (%) (Auto) 4 % (0-9) Eosinophils (%) (Auto) 1 % (0-3) Basophils (%) (Auto) 0 % (0-3) Neutrophils # (Auto) 21.2 x10^3/uL (1.8-7.7) Lymphocytes # (Auto) 1.2 x10^3/uL (1.0-4.8) Monocytes # (Auto) 1.0 x10^3/uL (0.0-1.1) Eosinophils # (Auto) 0.3 x10^3/uL (0.0-0.7) Basophils # (Auto) 0.1 x10^3/uL (0.0-0.2) Sodium Level 137 mmol/L (136-145) Potassium Level 3.8 mmol/L (3.5-5.1) Chloride Level 103 mmol/L (98-107) Carbon Dioxide Level 22 mmol/L (21-32) Anion Gap 12 (6-14) Blood Urea Nitrogen 59 mg/dL (7-20) Creatinine 2.5 mg/dL (0.6-1.0) Estimated GFR (Cockcroft-Gault) 20.5 BUN/Creatinine Ratio 24 (6-20) Glucose Level 279 mg/dL (70-99) Calcium Level 7.7 mg/dL (8.5-10.1) Total Bilirubin 0.6 mg/dL (0.2-1.0) Aspartate Amino Transf (AST/SGOT) 37 U/L (15-37) Alanine Aminotransferase (ALT/SGPT) 16 U/L (14-59) Alkaline Phosphatase 83 U/L (46-116) Total Protein 4.3 g/dL (6.4-8.2) Albumin 1.9 g/dL (3.4-5.0) Albumin/Globulin Ratio 0.8 (1.0-1.7) Glucose (Fingerstick) 269 mg/dL (70-99) O2 Saturation 96 % (92-99) Arterial Blood pH 7.43 (7.35-7.45) Arterial Blood pCO2 at Patient Temp 32 mmHg (35-46) Arterial Blood pO2 at Patient Temp 94 mmHg (75-108) Arterial Blood HCO3 21 mmol/L (21-28) Arterial Blood Base Excess -3 mmol/L (-3-3) FiO2 40% Influenza Type A Antigen Negative (NEGATIVE) Influenza Type B Antigen Negative (NEGATIVE) Test 07/14/19 12:01 07/14/19 16:00 07/14/19 23:20 07/15/19 05:50 Glucose (Fingerstick) 264 mg/dL (70-99) 255 mg/dL (70-99) Magnesium Level 2.3 mg/dL (1.8-2.4) 2.3 mg/dL (1.8-2.4) 2.1 mg/dL (1.8-2.4) DN-Fct-G-Type Natriuretic Peptide 106 pg/mL (0-124) Sodium Level 139 mmol/L (136-145) 139 mmol/L (136-145) Potassium Level 4.1 mmol/L (3.5-5.1) 4.4 mmol/L (3.5-5.1) Chloride Level 104 mmol/L (98-107) 106 mmol/L (98-107) Carbon Dioxide Level 25 mmol/L (21-32) 25 mmol/L (21-32) Anion Gap 10 (6-14) 8 (6-14) Blood Urea Nitrogen 48 mg/dL (7-20) 44 mg/dL (7-20) Creatinine 1.9 mg/dL (0.6-1.0) 1.6 mg/dL (0.6-1.0) Estimated GFR (Cockcroft-Gault) 28.1 34.3 Glucose Level 252 mg/dL (70-99) 216 mg/dL (70-99) Calcium Level 7.6 mg/dL (8.5-10.1) 7.7 mg/dL (8.5-10.1) Phosphorus Level 4.1 mg/dL (2.6-4.7) 4.3 mg/dL (2.6-4.7) White Blood Count 34.3 x10^3/uL (4.0-11.0) Red Blood Count 2.51 x10^6/uL (3.50-5.40) Hemoglobin 7.8 g/dL (12.0-15.5) Hematocrit 24.4 % (36.0-47.0) Mean Corpuscular Volume 97 fL (79-100) Mean Corpuscular Hemoglobin 31 pg (25-35) Mean Corpuscular Hemoglobin Concent 32 g/dL (31-37) Red Cell Distribution Width 15.9 % (11.5-14.5) Platelet Count 281 x10^3/uL (140-400) Neutrophils (%) (Auto) 91 % (31-73) Lymphocytes (%) (Auto) 4 % (24-48) Monocytes (%) (Auto) 3 % (0-9) Eosinophils (%) (Auto) 2 % (0-3) Basophils (%) (Auto) 0 % (0-3) Neutrophils # (Auto) 31.3 x10^3/uL (1.8-7.7) Lymphocytes # (Auto) 1.3 x10^3/uL (1.0-4.8) Monocytes # (Auto) 1.1 x10^3/uL (0.0-1.1) Eosinophils # (Auto) 0.6 x10^3/uL (0.0-0.7) Basophils # (Auto) 0.1 x10^3/uL (0.0-0.2) BUN/Creatinine Ratio 28 (6-20) Total Bilirubin 0.5 mg/dL (0.2-1.0) Aspartate Amino Transf (AST/SGOT) 34 U/L (15-37) Alanine Aminotransferase (ALT/SGPT) 18 U/L (14-59) Alkaline Phosphatase 108 U/L (46-116) Total Protein 4.5 g/dL (6.4-8.2) Albumin 1.7 g/dL (3.4-5.0) Albumin/Globulin Ratio 0.6 (1.0-1.7) Triglycerides Level 240 mg/dL (0-150) Test 07/15/19 05:57 Glucose (Fingerstick) 225 mg/dL (70-99) Laboratory Tests Test 07/14/19 10:30 07/14/19 12:01 07/14/19 16:00 07/14/19 23:20 Influenza Type A Antigen Negative (NEGATIVE) Influenza Type B Antigen Negative (NEGATIVE) Glucose (Fingerstick) 264 mg/dL (70-99) 255 mg/dL (70-99) Magnesium Level 2.3 mg/dL (1.8-2.4) 2.3 mg/dL (1.8-2.4) SK-Etj-U-Type Natriuretic Peptide 106 pg/mL (0-124) Sodium Level 139 mmol/L (136-145) Potassium Level 4.1 mmol/L (3.5-5.1) Chloride Level 104 mmol/L (98-107) Carbon Dioxide Level 25 mmol/L (21-32) Anion Gap 10 (6-14) Blood Urea Nitrogen 48 mg/dL (7-20) Creatinine 1.9 mg/dL (0.6-1.0) Estimated GFR (Cockcroft-Gault) 28.1 Glucose Level 252 mg/dL (70-99) Calcium Level 7.6 mg/dL (8.5-10.1) Phosphorus Level 4.1 mg/dL (2.6-4.7) Test 07/15/19 05:50 07/15/19 05:57 White Blood Count 34.3 x10^3/uL (4.0-11.0) Red Blood Count 2.51 x10^6/uL (3.50-5.40) Hemoglobin 7.8 g/dL (12.0-15.5) Hematocrit 24.4 % (36.0-47.0) Mean Corpuscular Volume 97 fL (79-100) Mean Corpuscular Hemoglobin 31 pg (25-35) Mean Corpuscular Hemoglobin Concent 32 g/dL (31-37) Red Cell Distribution Width 15.9 % (11.5-14.5) Platelet Count 281 x10^3/uL (140-400) Neutrophils (%) (Auto) 91 % (31-73) Lymphocytes (%) (Auto) 4 % (24-48) Monocytes (%) (Auto) 3 % (0-9) Eosinophils (%) (Auto) 2 % (0-3) Basophils (%) (Auto) 0 % (0-3) Neutrophils # (Auto) 31.3 x10^3/uL (1.8-7.7) Lymphocytes # (Auto) 1.3 x10^3/uL (1.0-4.8) Monocytes # (Auto) 1.1 x10^3/uL (0.0-1.1) Eosinophils # (Auto) 0.6 x10^3/uL (0.0-0.7) Basophils # (Auto) 0.1 x10^3/uL (0.0-0.2) Sodium Level 139 mmol/L (136-145) Potassium Level 4.4 mmol/L (3.5-5.1) Chloride Level 106 mmol/L (98-107) Carbon Dioxide Level 25 mmol/L (21-32) Anion Gap 8 (6-14) Blood Urea Nitrogen 44 mg/dL (7-20) Creatinine 1.6 mg/dL (0.6-1.0) Estimated GFR (Cockcroft-Gault) 34.3 BUN/Creatinine Ratio 28 (6-20) Glucose Level 216 mg/dL (70-99) Calcium Level 7.7 mg/dL (8.5-10.1) Phosphorus Level 4.3 mg/dL (2.6-4.7) Magnesium Level 2.1 mg/dL (1.8-2.4) Total Bilirubin 0.5 mg/dL (0.2-1.0) Aspartate Amino Transf (AST/SGOT) 34 U/L (15-37) Alanine Aminotransferase (ALT/SGPT) 18 U/L (14-59) Alkaline Phosphatase 108 U/L (46-116) Total Protein 4.5 g/dL (6.4-8.2) Albumin 1.7 g/dL (3.4-5.0) Albumin/Globulin Ratio 0.6 (1.0-1.7) Triglycerides Level 240 mg/dL (0-150) Glucose (Fingerstick) 225 mg/dL (70-99) Microbiology 07/12/19 Blood Culture - Preliminary, Resulted NO GROWTH AFTER 2 DAYS Medications Current Medications Sodium Chloride 1,000 ml @ 1,000 mls/hr Q1H IV Last administered on 07/04/19at 03:00; Start 07/04/19 at 03:00; Stop 07/04/19 at 03:59; Status DC Ondansetron HCl (Zofran) 4 mg 1X ONCE IVP Last administered on 07/04/19at 03:27; Start 07/04/19 at 03:00; Stop 07/04/19 at 03:01; Status DC Morphine Sulfate (Morphine Sulfate) 4 mg 1X ONCE IV ; Start 07/04/19 at 03:00; Stop 07/04/19 at 03:01; Status Cancel Ketorolac Tromethamine (Toradol 30mg Vial) 30 mg 1X ONCE IV Last administered on 07/04/19at 02:54; Start 07/04/19 at 03:00; Stop 07/04/19 at 03:01; Status DC Fentanyl Citrate (Fentanyl 2ml Vial) 25 mcg 1X ONCE IVP Last administered on 07/04/19at 03:23; Start 07/04/19 at 03:30; Stop 07/04/19 at 03:31; Status DC Fentanyl Citrate (Fentanyl 2ml Vial) 100 mcg STK-MED ONCE .ROUTE ; Start 06/18 10/07 at 03:18; Stop 07/04/19 at 03:18; Status DC Iohexol (Omnipaque 350 Mg/ml) 90 ml 1X ONCE IV Last administered on 07/04/19at 03:25; Start 07/04/19 at 03:30; Stop 07/04/19 at 03:31; Status DC Info (CONTRAST GIVEN -- Rx MONITORING) 1 each PRN DAILY PRN MC SEE COMMENTS; Start 07/04/19 at 03:30; Stop 07/06/19 at 03:29; Status DC Hydromorphone HCl (Dilaudid) 0.5 mg 1X ONCE IV Last administered on 07/04/19at 03:55; Start 07/04/19 at 04:30; Stop 07/04/19 at 04:32; Status DC Ondansetron HCl (Zofran) 4 mg PRN Q8HRS PRN IV NAUSEA/VOMITING 1ST CHOICE; Start 07/04/19 at 05:00; Stop 07/04/19 at 09:27; Status DC Morphine Sulfate (Morphine Sulfate) 2 mg PRN Q2HR PRN IV SEVERE PAIN 7-10 Last administered on 07/05/19at 12:26; Start 07/04/19 at 05:00; Stop 07/05/19 at 14:15; Status DC Sodium Chloride 1,000 ml @ 125 mls/hr Q8H IV Last administered on 07/04/19at 20:56; Start 07/04/19 at 05:00; Stop 07/05/19 at 04:59; Status DC Hydromorphone HCl (Dilaudid) 0.5 mg PRN Q3HRS PRN IV SEVERE PAIN 7-10 Last administered on 07/05/19at 10:06; Start 07/04/19 at 05:00; Stop 07/05/19 at 12:01; Status DC Piperacillin Sod/ Tazobactam Sod 4.5 gm/Sodium Chloride 100 ml @ 200 mls/hr 1X ONCE IV Last administered on 07/04/19at 05:44; Start 07/04/19 at 06:00; Stop 07/04/19 at 06:29; Status DC Ondansetron HCl (Zofran) 4 mg PRN Q4HRS PRN IV NAUSEA/VOMITING 1ST CHOICE Last administered on 07/09/19at 16:15; Start 07/04/19 at 09:30 Insulin Human Lispro (HumaLOG) 0-9 UNITS Q6HRS SQ Last administered on 07/15/19at 06:01; Start 07/04/19 at 09:30 Dextrose (Dextrose 50%-Water Syringe) 12.5 gm PRN Q15MIN PRN IV SEE COMMENTS; Start 07/04/19 at 09:30 Pantoprazole Sodium (PROTONIX VIAL for IV PUSH) 40 mg DAILYAC IVP Last administered on 07/15/19at 09:02; Start 07/04/19 at 11:30 Prochlorperazine Edisylate (Compazine) 10 mg PRN Q6HRS PRN IV NAUSEA/VOMITING, 2nd CHOICE Last administered on 07/05/19at 00:42; Start 07/04/19 at 17:45 Atenolol (Tenormin) 100 mg DAILY PO ; Start 07/05/19 at 09:00; Stop 07/04/19 at 20:08; Status DC Metoprolol Tartrate (Lopressor Vial) 2.5 mg Q6HRS IVP Last administered on 07/05/19at 05:51; Start 07/04/19 at 20:15; Stop 07/05/19 at 10:02; Status DC Metoprolol Tartrate (Lopressor Vial) 5 mg Q6HRS IVP Last administered on 07/14/19at 00:12; Start 07/05/19 at 10:15 Hydromorphone HCl (Dilaudid) 1 mg PRN Q3HRS PRN IV SEVERE PAIN 7-10 Last administered on 07/11/19at 05:13; Start 07/05/19 at 12:00 Lidocaine HCl (Buffered Lidocaine 1%) 3 ml STK-MED ONCE .ROUTE ; Start 07/05/19 at 12:55; Stop 07/05/19 at 12:56; Status DC Albumin Human 500 ml @ 125 mls/hr 1X ONCE IV Last administered on 07/05/19at 14:33; Start 07/05/19 at 14:30; Stop 07/05/19 at 18:32; Status DC Norepinephrine Bitartrate 8 mg/ Dextrose 258 ml @ 17.299 mls/ hr CONT PRN IV PER PROTOCOL Last administered on 07/14/19at 01:42; Start 07/05/19 at 15:30 Sodium Chloride 1,000 ml @ 125 mls/hr Q8H IV Last administered on 07/05/19at 21:04; Start 07/05/19 at 16:00; Stop 07/06/19 at 02:42; Status DC Albumin Human 500 ml @ 125 mls/hr PRN BID PRN IV After every 2L NSS & BP < 90mm Last administered on 07/14/19at 14:20; Start 07/05/19 at 16:00 Iohexol (Omnipaque 300 Mg/ml) 60 ml 1X ONCE IV Last administered on 07/05/19at 17:20; Start 07/05/19 at 17:00; Stop 07/05/19 at 17:01; Status DC Info (CONTRAST GIVEN -- Rx MONITORING) 1 each PRN DAILY PRN MC SEE COMMENTS; Start 07/05/19 at 17:00; Stop 07/07/19 at 16:59; Status DC Meropenem 1 gm/ Sodium Chloride 100 ml @ 200 mls/hr Q8HRS IV Last administered on 07/06/19at 05:45; Start 07/05/19 at 20:00; Stop 07/06/19 at 08:48; Status DC Furosemide (Lasix) 40 mg 1X ONCE IVP Last administered on 07/05/19at 22:12; Start 07/05/19 at 22:30; Stop 07/05/19 at 22:31; Status DC Calcium Chloride 1000 mg/Sodium Chloride 110 ml @ 220 mls/hr 1X ONCE IV Last administered on 07/05/19at 22:11; Start 07/05/19 at 22:30; Stop 07/05/19 at 22:59; Status DC Albuterol Sulfate (Ventolin Neb Soln) 2.5 mg 1X ONCE NEB Last administered on 07/06/19at 00:56; Start 07/05/19 at 22:30; Stop 07/05/19 at 22:31; Status DC Insulin Human Regular (HumuLIN R VIAL) 5 unit 1X ONCE IV Last administered on 07/05/19at 22:14; Start 07/05/19 at 22:30; Stop 07/05/19 at 22:31; Status DC Magnesium Sulfate 50 ml @ 25 mls/hr 1X ONCE IV Last administered on 07/06/19at 02:57; Start 07/06/19 at 03:00; Stop 07/06/19 at 04:59; Status DC Calcium Gluconate 1000 mg/Sodium Chloride 110 ml @ 220 mls/hr 1X ONCE IV Last administered on 07/06/19at 02:46; Start 07/06/19 at 03:00; Stop 07/06/19 at 03:29; Status DC Sodium Chloride 1,000 ml @ 200 mls/hr Q5H IV Last administered on 07/06/19at 02:46; Start 07/06/19 at 03:00; Stop 07/06/19 at 10:21; Status DC Calcium Gluconate 1000 mg/Sodium Chloride 110 ml @ 220 mls/hr 1X ONCE IV Last administered on 07/06/19at 03:21; Start 07/06/19 at 03:30; Stop 07/06/19 at 03:59; Status DC Sodium Bicarbonate 50 meq/Sodium Chloride 1,050 ml @ 75 mls/hr Q14H IV Last administered on 07/10/19at 21:10; Start 07/06/19 at 07:30; Stop 07/11/19 at 10:28; Status DC Calcium Gluconate 2000 mg/Sodium Chloride 120 ml @ 220 mls/hr 1X ONCE IV Last administered on 07/06/19at 09:05; Start 07/06/19 at 07:30; Stop 07/06/19 at 08:02; Status DC Lidocaine HCl (Xylocaine-Mpf 1% 2ml Vial) 2 ml STK-MED ONCE .ROUTE ; Start 07/06/19 at 08:47; Stop 07/06/19 at 08:47; Status DC Meropenem 500 mg/ Sodium Chloride 50 ml @ 100 mls/hr Q12HR IV Last administered on 07/11/19at 21:01; Start 07/06/19 at 18:00; Stop 07/12/19 at 07:58; Status DC Lidocaine HCl (Buffered Lidocaine 1%) 3 ml STK-MED ONCE .ROUTE ; Start 07/06/19 at 09:46; Stop 07/06/19 at 09:46; Status DC Lidocaine HCl (Buffered Lidocaine 1%) 6 ml 1X ONCE INJ Last administered on 07/06/19at 10:26; Start 07/06/19 at 10:15; Stop 07/06/19 at 10:16; Status DC Info (Tpn Per Pharmacy) 1 each PRN DAILY PRN MC SEE COMMENTS Last administered on 07/14/19at 10:00; Start 07/06/19 at 12:00 Sodium Chloride 1,000 ml @ 1,000 mls/hr Q1H PRN IV hypotension; Start 07/06/19 at 12:07; Stop 07/06/19 at 18:06; Status DC Diphenhydramine HCl (Benadryl) 25 mg 1X PRN PRN IV ITCHING; Start 07/06/19 at 12:15; Stop 07/07/19 at 12:14; Status DC Diphenhydramine HCl (Benadryl) 25 mg 1X PRN PRN IV ITCHING; Start 07/06/19 at 12:15; Stop 07/07/19 at 12:14; Status DC Sodium Chloride 1,000 ml @ 400 mls/hr Q2H30M PRN IV PATENCY; Start 07/06/19 at 12:07; Stop 07/07/19 at 00:06; Status DC Info (PHARMACY MONITORING -- do not chart) 1 each PRN DAILY PRN MC SEE COMMENTS; Start 07/06/19 at 12:15; Stop 07/08/19 at 08:13; Status DC Sodium Chloride 90 meq/Calcium Gluconate 10 meq/ Multivitamins 10 ml/Chromium/ Copper/Manganese/ Seleni/Zn 1 ml/ Total Parenteral Nutrition/Amino Acids/Dextrose/ Fat Emulsion Intravenous 55.005 ml @ 2.292 mls/hr TPN CONT IV ; Start 07/06/19 at 22:00; Stop 07/06/19 at 12:33; Status DC Info (Tpn Per Pharmacy) 1 each PRN DAILY PRN MC SEE COMMENTS; Start 07/06/19 at 12:30; Status UNV Sodium Chloride 90 meq/Calcium Gluconate 10 meq/ Multivitamins 10 ml/Chromium/ Copper/Manganese/ Seleni/Zn 0.5 ml/ Total Parenteral Nutrition/Amino Acids/Dextrose/ Fat Emulsion Intravenous 1,512 ml @ 63 mls/hr TPN CONT IV Last administered on 07/06/19at 22:06; Start 07/06/19 at 22:00; Stop 07/07/19 at 21:59; Status DC Calcium Carbonate/ Glycine (Tums) 500 mg PRN AFTMEALHC PRN PO INDIGESTION; Start 07/06/19 at 17:45 Calcium Gluconate (Calcium Gluconate) 2,000 mg 1X ONCE IVP Last administered on 07/07/19at 02:19; Start 07/07/19 at 02:15; Stop 07/07/19 at 02:16; Status DC Calcium Chloride 3000 mg/Sodium Chloride 1,030 ml @ 50 mls/hr [id number] IV Last administered on 07/09/19at 02:17; Start 07/07/19 at 08:00; Stop 07/09/19 at 15:23; Status DC Lorazepam (Ativan Inj) 1 mg PRN Q4HRS PRN IVP ANXIETY / AGITATION Last administered on 07/11/19at 00:34; Start 07/07/19 at 09:00 Sodium Chloride 1,000 ml @ 1,000 mls/hr Q1H PRN IV hypotension; Start 07/07/19 at 08:56; Stop 07/07/19 at 14:55; Status DC Albumin Human 200 ml @ 200 mls/hr 1X PRN PRN IV Hypotension; Start 07/07/19 at 09:00; Stop 07/07/19 at 14:59; Status DC Diphenhydramine HCl (Benadryl) 25 mg 1X PRN PRN IV ITCHING; Start 07/07/19 at 09:00; Stop 07/08/19 at 08:59; Status DC Diphenhydramine HCl (Benadryl) 25 mg 1X PRN PRN IV ITCHING; Start 07/07/19 at 09:00; Stop 07/08/19 at 08:59; Status DC Sodium Chloride 1,000 ml @ 400 mls/hr Q2H30M PRN IV PATENCY; Start 07/07/19 at 08:56; Stop 07/07/19 at 20:55; Status DC Info (PHARMACY MONITORING -- do not chart) 1 each PRN DAILY PRN MC SEE COMMENTS; Start 07/07/19 at 09:00; Status UNV Info (PHARMACY MONITORING -- do not chart) 1 each PRN DAILY PRN MC SEE COMMENTS; Start 07/07/19 at 09:00; Stop 07/08/19 at 08:13; Status DC Digoxin (Lanoxin) 500 mcg 1X ONCE IV Last administered on 07/07/19at 10:04; Start 07/07/19 at 10:00; Stop 07/07/19 at 10:01; Status DC Digoxin (Lanoxin) 125 mcg 1X ONCE IV Last administered on 07/07/19at 17:10; Start 07/07/19 at 18:00; Stop 07/07/19 at 18:01; Status DC Magnesium Sulfate 100 ml @ 25 mls/hr 1X ONCE IV Last administered on 07/07/19at 12:48; Start 07/07/19 at 13:00; Stop 07/07/19 at 16:59; Status DC Sodium Chloride 90 meq/Magnesium Sulfate 10 meq/ Calcium Gluconate 20 meq/ Multivitamins 10 ml/Chromium/ Copper/Manganese/ Seleni/Zn 0.5 ml/ Total Parenteral Nutrition/Amino Acids/Dextrose/ Fat Emulsion Intravenous 1,512 ml @ 63 mls/hr TPN CONT IV Last administered on 07/07/19at 22:25; Start 07/07/19 at 22:00; Stop 07/08/19 at 21:59; Status DC Sodium Chloride 1,000 ml @ 1,000 mls/hr Q1H PRN IV hypotension; Start 07/08/19 at 08:05; Stop 07/08/19 at 14:04; Status DC Albumin Human 200 ml @ 200 mls/hr 1X ONCE IV Last administered on 07/08/19at 08:57; Start 07/08/19 at 08:15; Stop 07/08/19 at 09:14; Status DC Diphenhydramine HCl (Benadryl) 25 mg 1X PRN PRN IV ITCHING; Start 07/08/19 at 08:15; Stop 07/09/19 at 08:14; Status DC Diphenhydramine HCl (Benadryl) 25 mg 1X PRN PRN IV ITCHING; Start 07/08/19 at 08:15; Stop 07/09/19 at 08:14; Status DC Sodium Chloride 1,000 ml @ 400 mls/hr Q2H30M PRN IV PATENCY; Start 07/08/19 at 08:05; Stop 07/08/19 at 20:04; Status DC Info (PHARMACY MONITORING -- do not chart) 1 each PRN DAILY PRN MC SEE COMMENTS; Start 07/08/19 at 08:15; Stop 07/12/19 at 07:57; Status DC Sodium Chloride 90 meq/Potassium Chloride 15 meq/ Potassium Phosphate 10 mmol/ Magnesium Sulfate 10 meq/Calcium Gluconate 20 meq/ Multivitamins 10 ml/Chromium/ Copper/Manganese/ Seleni/Zn 0.5 ml/ Total Parenteral Nutrition/Amino Acids/Dextrose/ Fat Emulsion Intravenous 1,512 ml @ 63 mls/hr TPN CONT IV Last administered on 07/08/19at 21:01; Start 07/08/19 at 22:00; Stop 07/09/19 at 21:59; Status DC Potassium Chloride/Water 100 ml @ 100 mls/hr 1X ONCE IV Last administered on 07/08/19at 14:09; Start 07/08/19 at 14:00; Stop 07/08/19 at 14:59; Status DC Benzocaine (Hurricaine One) 1 spray 1X ONCE MM Last administered on 07/08/19at 16:38; Start 07/08/19 at 14:30; Stop 07/08/19 at 14:31; Status DC Lidocaine HCl (Glydo (Lidocaine) Jelly) 1 ramu 1X ONCE MM Last administered on 07/08/19at 16:38; Start 07/08/19 at 14:30; Stop 07/08/19 at 14:31; Status DC Linezolid/Dextrose 300 ml @ 300 mls/hr Q12HR IV Last administered on 07/14/19at 21:04; Start 07/08/19 at 20:00; Stop 07/15/19 at 07:50; Status DC Acetaminophen (Tylenol) 650 mg PRN Q6HRS PRN PO MILD PAIN / TEMP; Start 07/09/19 at 03:30; Stop 07/09/19 at 03:36; Status DC Acetaminophen (Tylenol) 650 mg PRN Q6HRS PRN PEG MILD PAIN / TEMP Last administered on 07/14/19at 07:35; Start 07/09/19 at 03:36 Sodium Chloride 1,000 ml @ 1,000 mls/hr Q1H PRN IV hypotension; Start 07/09/19 at 07:50; Stop 07/09/19 at 13:49; Status DC Albumin Human 200 ml @ 200 mls/hr 1X PRN PRN IV Hypotension; Start 07/09/19 at 08:00; Stop 07/09/19 at 13:59; Status DC Sodium Chloride (Normal Saline Flush) 10 ml 1X PRN PRN IV AP catheter pack; Start 07/09/19 at 08:00; Stop 07/10/19 at 07:59; Status DC Sodium Chloride (Normal Saline Flush) 10 ml 1X PRN PRN IV [employer] catheter pack; Start 07/09/19 at 08:00; Stop 07/10/19 at 07:59; Status DC Sodium Chloride 1,000 ml @ 400 mls/hr Q2H30M PRN IV PATENCY; Start 07/09/19 at 07:50; Stop 07/09/19 at 19:49; Status DC Info (PHARMACY MONITORING -- do not chart) 1 each PRN DAILY PRN MC SEE COMMENTS; Start 07/09/19 at 08:00; Status UNV Info (PHARMACY MONITORING -- do not chart) 1 each PRN DAILY PRN MC SEE COMMENTS; Start 07/09/19 at 08:00; Stop 07/11/19 at 08:25; Status DC Sodium Chloride 90 meq/Potassium Chloride 15 meq/ Potassium Phosphate 10 mmol/ Magnesium Sulfate 10 meq/Calcium Gluconate 20 meq/ Multivitamins 10 ml/Chromium/ Copper/Manganese/ Seleni/Zn 0.5 ml/ Total Parenteral Nutrition/Amino Acids/Dextrose/ Fat Emulsion Intravenous 1,512 ml @ 63 mls/hr TPN CONT IV Last administered on 07/09/19at 20:57; Start 07/09/19 at 22:00; Stop 07/10/19 at 21:59; Status DC Sodium Chloride 90 meq/Potassium Chloride 15 meq/ Potassium Phosphate 15 mmol/ Magnesium Sulfate 10 meq/Calcium Gluconate 20 meq/ Multivitamins 10 ml/Chromium/ Copper/Manganese/ Seleni/Zn 0.5 ml/ Total Parenteral Nutrition/Amino Acids/Dextrose/ Fat Emulsion Intravenous 1,512 ml @ 63 mls/hr TPN CONT IV ; Start 07/10/19 at 22:00; Stop 07/10/19 at 14:16; Status DC Sodium Chloride 90 meq/Potassium Chloride 15 meq/ Potassium Phosphate 15 mmol/ Magnesium Sulfate 10 meq/Calcium Gluconate 20 meq/ Multivitamins 10 ml/Chromium/ Copper/Manganese/ Seleni/Zn 0.5 ml/ Total Parenteral Nutrition/Amino Acids/Dextrose/ Fat Emulsion Intravenous 1,200 ml @ 50 mls/hr TPN CONT IV ; Start 07/10/19 at 22:00; Stop 07/10/19 at 14:17; Status DC Sodium Chloride 90 meq/Potassium Chloride 15 meq/ Potassium Phosphate 10 mmol/ Magnesium Sulfate 10 meq/Calcium Gluconate 20 meq/ Multivitamins 10 ml/Chromium/ Copper/Manganese/ Seleni/Zn 0.5 ml/ Total Parenteral Nutrition/Amino Acids/Dextrose/ Fat Emulsion Intravenous 1,200 ml @ 50 mls/hr TPN CONT IV Last administered on 07/10/19at 23:29; Start 07/10/19 at 22:00; Stop 07/11/19 at 21:59; Status DC Sodium Chloride 1,000 ml @ 1,000 mls/hr Q1H PRN IV hypotension; Start 07/11/19 at 07:28; Stop 07/11/19 at 13:27; Status DC Albumin Human 200 ml @ 200 mls/hr 1X ONCE IV Last administered on 07/11/19at 08:51; Start 07/11/19 at 07:30; Stop 07/11/19 at 08:29; Status DC Diphenhydramine HCl (Benadryl) 25 mg 1X PRN PRN IV ITCHING; Start 07/11/19 at 07:30; Stop 07/12/19 at 07:29; Status DC Diphenhydramine HCl (Benadryl) 25 mg 1X PRN PRN IV ITCHING; Start 07/11/19 at 07:30; Stop 07/12/19 at 07:29; Status DC Sodium Chloride 1,000 ml @ 400 mls/hr Q2H30M PRN IV PATENCY; Start 07/11/19 at 07:28; Stop 07/11/19 at 19:27; Status DC Info (PHARMACY MONITORING -- do not chart) 1 each PRN DAILY PRN MC SEE COMMENTS; Start 07/11/19 at 07:30 Metronidazole 100 ml @ 100 mls/hr Q6HRS IV Last administered on 07/15/19at 05:59; Start 07/11/19 at 08:30 Micafungin Sodium 100 mg/Dextrose 100 ml @ 100 mls/hr Q24H IV Last a dministered on 07/15/19at 09:01; Start 07/11/19 at 09:00 Propofol 0 ml @ As Directed STK-MED ONCE IV ; Start 07/11/19 at 07:53; Stop 07/11/19 at 07:53; Status DC Etomidate (Amidate) 20 mg STK-MED ONCE IV ; Start 07/11/19 at 07:53; Stop 07/11/19 at 07:54; Status DC Midazolam HCl (Versed) 5 mg STK-MED ONCE .ROUTE ; Start 07/11/19 at 07:57; Stop 07/11/19 at 07:57; Status DC Fentanyl Citrate 30 ml @ 0 mls/hr CONT PRN IV SEE PROTOCOL Last administered on 07/15/19at 00:53; Start 07/11/19 at 08:15 Artificial Tears (Artificial Tears) 1 drop PRN Q1HR PRN OU DRY EYE; Start 07/11/19 at 08:15 Midazolam HCl 50 mg/Sodium Chloride 50 ml @ 0 mls/hr CONT PRN IV SEE PROTOCOL Last administered on 07/14/19at 22:39; Start 07/11/19 at 08:15 Etomidate (Amidate) 8 mg 1X ONCE IV Last administered on 07/11/19at 08:33; Start 07/11/19 at 08:30; Stop 07/11/19 at 08:31; Status DC Succinylcholine Chloride (Anectine) 120 mg 1X ONCE IV Last administered on 07/11/19at 08:34; Start 07/11/19 at 08:30; Stop 07/11/19 at 08:31; Status DC Midazolam HCl (Versed) 5 mg 1X ONCE IV ; Start 07/11/19 at 08:30; Stop 07/11/19 at 08:31; Status DC Potassium Chloride 15 meq/ Bicarbonate Dialysis Soln w/ out KCl 5,007.5 ml @ 1,000 mls/ hr Q5H1M IV Last administered on 07/12/19at 11:11; Start 07/11/19 at 12:00; Stop 07/12/19 at 11:15; Status DC Potassium Chloride 15 meq/ Bicarbonate Dialysis Soln w/ out KCl 5,007.5 ml @ 1,000 mls/ hr Q5H1M IV Last administered on 07/12/19at 11:12; Start 07/11/19 at 12:00; Stop 07/12/19 at 11:17; Status DC Potassium Chloride 15 meq/ Bicarbonate Dialysis Soln w/ out KCl 5,007.5 ml @ 1,000 mls/ hr Q5H1M IV Last administered on 07/12/19at 11:11; Start 07/11/19 at 12:00; Stop 07/12/19 at 11:19; Status DC Sodium Chloride 90 meq/Potassium Chloride 15 meq/ Potassium Phosphate 10 mmol/ Magnesium Sulfate 10 meq/Calcium Gluconate 20 meq/ Multivitamins 10 ml/Chromium/ Copper/Manganese/ Seleni/Zn 0.5 ml/ Total Parenteral Nutrition/Amino Acids/Dextrose/ Fat Emulsion Intravenous 1,400 ml @ 58.333 mls/ hr TPN CONT IV Last administered on 07/11/19at 21:42; Start 07/11/19 at 22:00; Stop 07/12/19 at 21:59; Status DC Heparin Sodium (Porcine) (Heparin Sodium) 5,000 unit Q8HRS SQ Last administered on 07/14/19at 05:35; Start 07/11/19 at 15:00 Meropenem 500 mg/ Sodium Chloride 50 ml @ 100 mls/hr Q6HRS IV Last administered on 07/13/19at 06:00; Start 07/12/19 at 09:00; Stop 07/13/19 at 07:29; Status DC Potassium Phosphate 20 mmol/ Sodium Chloride 106.6667 ml @ 51.667 m... 1X ONCE IV Last administered on 07/12/19at 11:22; Start 07/12/19 at 10:15; Stop 07/12/19 at 12:18; Status DC Acetaminophen (Tylenol Supp) 650 mg PRN Q6HRS PRN [place] MILD PAIN / TEMP Last administered on 07/12/19at 10:37; Start 07/12/19 at 10:30 Potassium Chloride/Water 100 ml @ 100 mls/hr Q1H IV Last administered on at 12:12; Start 07/12/19 at 11:00; Stop 07/12/19 at 12:59; Status DC Potassium Chloride 20 meq/ Bicarbonate Dialysis Soln w/ out KCl 5,010 ml @ 1,000 mls/hr Q5H1M IV Last administered on 07/13/19at 08:48; Start 07/12/19 at 12:00; Stop 07/13/19 at 13:03; Status DC Potassium Chloride 20 meq/ Bicarbonate Dialysis Soln w/ out KCl 5,010 ml @ 1,000 mls/hr Q5H1M IV Last administered on 07/15/19at 09:05; Start 07/12/19 at 11:30 Potassium Chloride 20 meq/ Bicarbonate Dialysis Soln w/ out KCl 5,010 ml @ 1,000 mls/hr Q5H1M IV Last administered on 07/15/19at 09:04; Start 07/12/19 at 11:30 Sodium Chloride 90 meq/Potassium Chloride 15 meq/ Potassium Phosphate 15 mmol/ Magnesium Sulfate 10 meq/Calcium Gluconate 15 meq/ Multivitamins 10 ml/Chromium/ Copper/Manganese/ Seleni/Zn 0.5 ml/ Total Parenteral Nutrition/Amino Acids/Dextrose/ Fat Emulsion Intravenous 1,400 ml @ 58.333 mls/ hr TPN CONT IV Last administered on 07/12/19at 22:17; Start 07/12/19 at 22:00; Stop 07/13/19 at 21:59; Status DC Cefepime HCl (Maxipime) 2 gm Q12HR IVP Last administered on 07/15/19at 09:00; Start 07/13/19 at 09:00 Daptomycin 500 mg/ Sodium Chloride 50 ml @ 100 mls/hr Q48H IV Last administered on 07/13/19at 08:45; Start 07/13/19 at 08:30 Lidocaine HCl (Buffered Lidocaine 1%) 3 ml 1X ONCE INJ Last administered on 07/13/19at 10:27; Start 07/13/19 at 10:30; Stop 07/13/19 at 10:31; Status DC Potassium Phosphate 20 mmol/ Sodium Chloride 106.6667 ml @ 51.667 m... 1X ONCE IV Last administered on 07/13/19at 12:51; Start 07/13/19 at 13:00; Stop 07/13/19 at 15:03; Status DC Sodium Chloride 90 meq/Potassium Chloride 15 meq/ Potassium Phosphate 18 mmol/ Magnesium Sulfate 8 meq/Calcium Gluconate 15 meq/ Multivitamins 10 ml/Chromium/ Copper/Manganese/ Seleni/Zn 0.5 ml/ Total Parenteral Nutrition/Amino Acids/Dextrose/ Fat Emulsion Intravenous 1,400 ml @ 58.333 mls/ hr TPN CONT IV Last administered on 07/13/19at 22:16; Start 07/13/19 at 22:00; Stop 07/14/19 at 21:59; Status DC Potassium Chloride 20 meq/ Bicarbonate Dialysis Soln w/ out KCl 5,010 ml @ 1,000 mls/hr Q5H1M IV Last administered on 07/15/19at 09:04; Start 07/13/19 at 16:00 Multi-Ingred Cream/Lotion/Oil/ Oint (Artificial Tears Eye Ointment) 1 ramu PRN Q1HR PRN OU DRY EYE; Start 07/13/19 at 17:30 Sodium Chloride 90 meq/Potassium Chloride 15 meq/ Potassium Phosphate 18 mmol/ Magnesium Sulfate 8 meq/Calcium Gluconate 15 meq/ Multivitamins 10 ml/Chromium/ Copper/Manganese/ Seleni/Zn 0.5 ml/ Total Parenteral Nutrition/Amino Acids/Dextrose/ Fat Emulsion Intravenous 1,400 ml @ 58.333 mls/ hr TPN CONT IV Last administered on 07/14/19at 22:00; Start 07/14/19 at 22:00; Stop 07/15/19 at 21:59 Albumin Human 500 ml @ 125 mls/hr 1X ONCE IV ; Start 07/14/19 at 14:15; Stop 07/14/19 at 18:14; Status DC Active Scripts Active Reported Bisoprolol Fumarate 5 Mg Tablet 10 Mg PO DAILY Vitals/I & O Vital Sign - Last 24 Hours 07/14/19 07/14/19 07/14/19 07/14/19 09:33 10:00 10:12 10:31 Temp 100.2 100.2 100.6 100.2 100.2 100.6 Pulse 108 107 106 Resp B/P (MAP) 101/56 (71) 104/50 104/60 Pulse Ox 100 100 O2 Delivery Ventilator Ventilator 07/14/19 07/14/19 07/14/19 07/14/19 10:45 11:00 12:00 12:00 Temp 98.8 98.8 Pulse 100 96 99 Resp B/P (MAP) 99/57 112/51 (71) 105/58 (74) Pulse Ox 100 99 O2 Delivery Ventilator Mechanical Ventilator Ventilator 307/14/19 07/14/19 07/14/19 12:12 12:15 13:00 14:00 Temp 98.8 98.8 Pulse 99 102 94 Resp B/P (MAP) 105/58 99/55 (70) 109/43 (65) Pulse Ox 99 100 100 O2 Delivery Ventilator Ventilator Ventilator 07/14/19 07/14/19 07/14/19 07/14/19 15:00 16:00 16:00 16:23 Temp 98.4 98.4 Pulse 97 100 Resp B/P (MAP) 87/51 (63) 115/77 (90) Pulse Ox 100 97 100 O2 Delivery Ventilator Mechanical Ventilator Ventilator Ventilator 07/14/19 07/14/19 07/14/19 07/14/19 17:00 18:00 19:00 20:00 Pulse 104 96 98 Resp B/P (MAP) 108/64 (79) 120/62 (81) 110/58 (75) Pulse Ox 98 98 99 O2 Delivery Ventilator Ventilator Ventilator Mechanical Ventilator 07/14/19 07/14/19 07/14/19 07/14/19 20:00 20:58 21:00 22:00 Temp 98.2 98.2 Pulse 96 99 96 Resp 24 18 B/P (MAP) 99/64 (76) 107/58 (74) 102/69 (80) Pulse Ox 99 100 99 98 O2 Delivery Ventilator Ventilator Ventilator Ventilator 07/14/19 07/14/19 07/14/19 07/14/19 23:03 23:16 23:33 23:59 Temp 98.5 98.5 Pulse 96 96 96 Resp 20 B/P (MAP) 93/55 (68) 93/55 79/54 (62) Pulse Ox 98 100 98 O2 Delivery Ventilator Ventilator Ventilator 07/14/19 07/15/19 07/15/19 07/15/19 23:59 00:14 00:53 01:00 Pulse 95 98 Resp 18 19 B/P (MAP) 83/47 (59) 85/68 (74) Pulse Ox 99 99 100 O2 Delivery Mechanical Ventilator Ventilator Ventilator O2 Flow Rate 6.0 07/15/19 07/15/19 07/15/19 07/15/19 01:37 02:00 02:06 03:00 Pulse 98 101 Resp 19 18 B/P (MAP) 92/57 (69) 104/57 (73) Pulse Ox 100 100 100 98 O2 Delivery Ventilator Ventilator Ventilator O2 Flow Rate 6.0 07/15/19 07/15/19 07/15/19 07/15/19 03:32 04:00 04:00 05:03 Temp 98.8 98.8 Pulse 102 108 Resp 20 20 B/P (MAP) 93/65 (74) 106/66 (79) Pulse Ox 100 100 100 O2 Delivery Ventilator Ventilator Mechanical Ventilator Ventilator 07/15/19 07/15/19 07/15/19 05:38 06:00 06:00 Pulse 108 111 Resp 18 B/P (MAP) 92/67 100/65 (77) Pulse Ox 100 98 O2 Delivery Ventilator Ventilator Intake and Output 07/14/19 07/14/19 07/15/19 15:00 23:00 07:00 Intake Total 500 ml 1098.47 ml 1143 ml Output Total 210 ml 155 ml 205 ml Balance 290 ml 943.47 ml 938 ml ABI AHN MD Jul 15, 2019 09:35
[2019-07-15] MEDS: DAPTOmycin (GENERIC) IVPB 500 MG in IV NORMAL SALINE 50ML 50 ML IV SCH (09:45)
--- NOTE | 2019-07-15 09:49 | PDOC ---
PULMONARY PROGRESS NOTES Subjective Patient intubated on 07/10 , sedated she is on 40% FiO2 8 of PEEP, PIP remains ~37. Attempts to remove fluid complicated by hypotension. still on pressors for hypotension. Vitals Vital Signs Date Time Temp Pulse Resp B/P (MAP) Pulse Ox O2 Delivery O2 Flow Rate FiO2 07/15/19 06:00 111 18 100/65 (77) 98 Ventilator 07/15/19 04:00 98.8 98.8 07/15/19 02:06 6.0 HEENT: Other (nc at perrl bipap mask on neck no lad no thyromegaly) Lungs: Crackles Cardiovascular: S1, S2 Abdomen: Other (distended, diffuse pain no mass) Extremities: No Edema Skin: Warm Labs Laboratory Tests Test 07/13/19 15:00 07/13/19 17:38 07/13/19 21:00 07/14/19 00:20 Sodium Level 141 mmol/L (136-145) 138 mmol/L (136-145) Potassium Level 3.8 mmol/L (3.5-5.1) 3.7 mmol/L (3.5-5.1) Chloride Level 104 mmol/L (98-107) 104 mmol/L (98-107) Carbon Dioxide Level 25 mmol/L (21-32) 27 mmol/L (21-32) Anion Gap 12 (6-14) 7 (6-14) Blood Urea Nitrogen 49 mg/dL (7-20) 44 mg/dL (7-20) Creatinine 2.5 mg/dL (0.6-1.0) 2.0 mg/dL (0.6-1.0) Estimated GFR (Cockcroft-Gault) 20.5 26.5 Glucose Level 290 mg/dL (70-99) 195 mg/dL (70-99) Calcium Level 7.4 mg/dL (8.5-10.1) 7.5 mg/dL (8.5-10.1) Phosphorus Level 3.9 mg/dL (2.6-4.7) 3.6 mg/dL (2.6-4.7) Magnesium Level 2.2 mg/dL (1.8-2.4) 2.3 mg/dL (1.8-2.4) Glucose (Fingerstick) 253 mg/dL (70-99) 210 mg/dL (70-99) Test 07/14/19 05:20 07/14/19 05:32 07/14/19 07:45 07/14/19 10:30 White Blood Count 23.8 x10^3/uL (4.0-11.0) Red Blood Count 1.97 x10^6/uL (3.50-5.40) Hemoglobin 6.5 g/dL (12.0-15.5) Hematocrit 19.3 % (36.0-47.0) Mean Corpuscular Volume 98 fL (79-100) Mean Corpuscular Hemoglobin 33 pg (25-35) Mean Corpuscular Hemoglobin Concent 34 g/dL (31-37) Red Cell Distribution Width 13.8 % (11.5-14.5) Platelet Count 274 x10^3/uL (140-400) Neutrophils (%) (Auto) 89 % (31-73) Lymphocytes (%) (Auto) 5 % (24-48) Monocytes (%) (Auto) 4 % (0-9) Eosinophils (%) (Auto) 1 % (0-3) Basophils (%) (Auto) 0 % (0-3) Neutrophils # (Auto) 21.2 x10^3/uL (1.8-7.7) Lymphocytes # (Auto) 1.2 x10^3/uL (1.0-4.8) Monocytes # (Auto) 1.0 x10^3/uL (0.0-1.1) Eosinophils # (Auto) 0.3 x10^3/uL (0.0-0.7) Basophils # (Auto) 0.1 x10^3/uL (0.0-0.2) Sodium Level 137 mmol/L (136-145) Potassium Level 3.8 mmol/L (3.5-5.1) Chloride Level 103 mmol/L (98-107) Carbon Dioxide Level 22 mmol/L (21-32) Anion Gap 12 (6-14) Blood Urea Nitrogen 59 mg/dL (7-20) Creatinine 2.5 mg/dL (0.6-1.0) Estimated GFR (Cockcroft-Gault) 20.5 BUN/Creatinine Ratio 24 (6-20) Glucose Level 279 mg/dL (70-99) Calcium Level 7.7 mg/dL (8.5-10.1) Total Bilirubin 0.6 mg/dL (0.2-1.0) Aspartate Amino Transf (AST/SGOT) 37 U/L (15-37) Alanine Aminotransferase (ALT/SGPT) 16 U/L (14-59) Alkaline Phosphatase 83 U/L (46-116) Total Protein 4.3 g/dL (6.4-8.2) Albumin 1.9 g/dL (3.4-5.0) Albumin/Globulin Ratio 0.8 (1.0-1.7) Glucose (Fingerstick) 269 mg/dL (70-99) O2 Saturation 96 % (92-99) Arterial Blood pH 7.43 (7.35-7.45) Arterial Blood pCO2 at Patient Temp 32 mmHg (35-46) Arterial Blood pO2 at Patient Temp 94 mmHg (75-108) Arterial Blood HCO3 21 mmol/L (21-28) Arterial Blood Base Excess -3 mmol/L (-3-3) FiO2 40% Influenza Type A Antigen Negative (NEGATIVE) Influenza Type B Antigen Negative (NEGATIVE) Test 07/14/19 12:01 07/14/19 16:00 07/14/19 23:20 07/15/19 05:50 Glucose (Fingerstick) 264 mg/dL (70-99) 255 mg/dL (70-99) Magnesium Level 2.3 mg/dL (1.8-2.4) 2.3 mg/dL (1.8-2.4) 2.1 mg/dL (1.8-2.4) [id number]-Type Natriuretic Peptide 106 pg/mL (0-124) Sodium Level 139 mmol/L (136-145) 139 mmol/L (136-145) Potassium Level 4.1 mmol/L (3.5-5.1) 4.4 mmol/L (3.5-5.1) Chloride Level 104 mmol/L (98-107) 106 mmol/L (98-107) Carbon Dioxide Level 25 mmol/L (21-32) 25 mmol/L (21-32) Anion Gap 10 (6-14) 8 (6-14) Blood Urea Nitrogen 48 mg/dL (7-20) 44 mg/dL (7-20) Creatinine 1.9 mg/dL (0.6-1.0) 1.6 mg/dL (0.6-1.0) Estimated GFR (Cockcroft-Gault) 28.1 34.3 Glucose Level 252 mg/dL (70-99) 216 mg/dL (70-99) Calcium Level 7.6 mg/dL (8.5-10.1) 7.7 mg/dL (8.5-10.1) Phosphorus Level 4.1 mg/dL (2.6-4.7) 4.3 mg/dL (2.6-4.7) White Blood Count 34.3 x10^3/uL (4.0-11.0) Red Blood Count 2.51 x10^6/uL (3.50-5.40) Hemoglobin 7.8 g/dL (12.0-15.5) Hematocrit 24.4 % (36.0-47.0) Mean Corpuscular Volume 97 fL (79-100) Mean Corpuscular Hemoglobin 31 pg (25-35) Mean Corpuscular Hemoglobin Concent 32 g/dL (31-37) Red Cell Distribution Width 15.9 % (11.5-14.5) Platelet Count 281 x10^3/uL (140-400) Neutrophils (%) (Auto) 91 % (31-73) Lymphocytes (%) (Auto) 4 % (24-48) Monocytes (%) (Auto) 3 % (0-9) Eosinophils (%) (Auto) 2 % (0-3) Basophils (%) (Auto) 0 % (0-3) Neutrophils # (Auto) 31.3 x10^3/uL (1.8-7.7) Lymphocytes # (Auto) 1.3 x10^3/uL (1.0-4.8) Monocytes # (Auto) 1.1 x10^3/uL (0.0-1.1) Eosinophils # (Auto) 0.6 x10^3/uL (0.0-0.7) Basophils # (Auto) 0.1 x10^3/uL (0.0-0.2) BUN/Creatinine Ratio 28 (6-20) Total Bilirubin 0.5 mg/dL (0.2-1.0) Aspartate Amino Transf (AST/SGOT) 34 U/L (15-37) Alanine Aminotransferase (ALT/SGPT) 18 U/L (14-59) Alkaline Phosphatase 108 U/L (46-116) Total Protein 4.5 g/dL (6.4-8.2) Albumin 1.7 g/dL (3.4-5.0) Albumin/Globulin Ratio 0.6 (1.0-1.7) Triglycerides Level 240 mg/dL (0-150) Test 07/15/19 05:57 Glucose (Fingerstick) 225 mg/dL (70-99) Laboratory Tests Test 07/14/19 10:30 07/14/19 12:01 07/14/19 16:00 07/14/19 23:20 Influenza Type A Antigen Negative (NEGATIVE) Influenza Type B Antigen Negative (NEGATIVE) Glucose (Fingerstick) 264 mg/dL (70-99) 255 mg/dL (70-99) Magnesium Level 2.3 mg/dL (1.8-2.4) 2.3 mg/dL (1.8-2.4) EV-Kjh-B-Type Natriuretic Peptide 106 pg/mL (0-124) Sodium Level 139 mmol/L (136-145) Potassium Level 4.1 mmol/L (3.5-5.1) Chloride Level 104 mmol/L (98-107) Carbon Dioxide Level 25 mmol/L (21-32) Anion Gap 10 (6-14) Blood Urea Nitrogen 48 mg/dL (7-20) Creatinine 1.9 mg/dL (0.6-1.0) Estimated GFR (Cockcroft-Gault) 28.1 Glucose Level 252 mg/dL (70-99) Calcium Level 7.6 mg/dL (8.5-10.1) Phosphorus Level 4.1 mg/dL (2.6-4.7) Test 07/15/19 05:50 07/15/19 05:57 White Blood Count 34.3 x10^3/uL (4.0-11.0) Red Blood Count 2.51 x10^6/uL (3.50-5.40) Hemoglobin 7.8 g/dL (12.0-15.5) Hematocrit 24.4 % (36.0-47.0) Mean Corpuscular Volume 97 fL (79-100) Mean Corpuscular Hemoglobin 31 pg (25-35) Mean Corpuscular Hemoglobin Concent 32 g/dL (31-37) Red Cell Distribution Width 15.9 % (11.5-14.5) Platelet Count 281 x10^3/uL (140-400) Neutrophils (%) (Auto) 91 % (31-73) Lymphocytes (%) (Auto) 4 % (24-48) Monocytes (%) (Auto) 3 % (0-9) Eosinophils (%) (Auto) 2 % (0-3) Basophils (%) (Auto) 0 % (0-3) Neutrophils # (Auto) 31.3 x10^3/uL (1.8-7.7) Lymphocytes # (Auto) 1.3 x10^3/uL (1.0-4.8) Monocytes # (Auto) 1.1 x10^3/uL (0.0-1.1) Eosinophils # (Auto) 0.6 x10^3/uL (0.0-0.7) Basophils # (Auto) 0.1 x10^3/uL (0.0-0.2) Sodium Level 139 mmol/L (136-145) Potassium Level 4.4 mmol/L (3.5-5.1) Chloride Level 106 mmol/L (98-107) Carbon Dioxide Level 25 mmol/L (21-32) Anion Gap 8 (6-14) Blood Urea Nitrogen 44 mg/dL (7-20) Creatinine 1.6 mg/dL (0.6-1.0) Estimated GFR (Cockcroft-Gault) 34.3 BUN/Creatinine Ratio 28 (6-20) Glucose Level 216 mg/dL (70-99) Calcium Level 7.7 mg/dL (8.5-10.1) Phosphorus Level 4.3 mg/dL (2.6-4.7) Magnesium Level 2.1 mg/dL (1.8-2.4) Total Bilirubin 0.5 mg/dL (0.2-1.0) Aspartate Amino Transf (AST/SGOT) 34 U/L (15-37) Alanine Aminotransferase (ALT/SGPT) 18 U/L (14-59) Alkaline Phosphatase 108 U/L (46-116) Total Protein 4.5 g/dL (6.4-8.2) Albumin 1.7 g/dL (3.4-5.0) Albumin/Globulin Ratio 0.6 (1.0-1.7) Triglycerides Level 240 mg/dL (0-150) Glucose (Fingerstick) 225 mg/dL (70-99) Medications Active Scripts Medications Dose Route/Sig Max Daily Dose Days Date Category Bisoprolol Fumarate 5 Mg Tablet 10 Mg PO DAILY 07/04/19 Reported Comments 07/14 cxr interstitial prominence/bilateral effusions relatively unchanged from yesterday, worse from several days ago Impression . IMPRESSION: 1. Acute hypoxemic respiratory failure secondary to ARDS due toacute pancreatitis, sepsic shock, abdominal distention, and pneumonia.and pleural effusions. Pleural effusions secondary to abdominal process and/or general volume overload from renal failure. Gas exchane better compared to earlier, but more effusions. 2. Gallstone pancreatitis. WITH NECROSIS 3. Severe metabolic acidosis. 4. Acute kidney injury. ON CRRT 5. Acute gallstone pancreatitis. 6. Hypoalbuminemia. 7. Hypocalcemia. 8. Leukocytosis 9. Chronic anemia Plan . Cont AC mode , 40 FIO2/ 8 PEEP. Poor prognosis/ ARDS/septic shock supportive care CRRT Repeat CT once stable Antibiotics per ID Follow surgery input Follow nephrology input Nutritional support with TPN Prognosis is extremely poor d/w RN/ time spent reviewing chart, labs, xrays, examining patinet and managing ventilator 30 min. RAHEL ADAME MD Jul 15, 2019 09:49
--- NOTE | 2019-07-15 10:01 | PDOC ---
SUBJECTIVE ROS Intubated , off sedation , not waking up OBJECTIVE Vital Signs Vital Signs Date Time Temp Pulse Resp B/P (MAP) Pulse Ox O2 Delivery O2 Flow Rate FiO2 07/15/19 06:00 111 18 100/65 (77) 98 Ventilator 07/15/19 04:00 98.8 98.8 07/15/19 02:06 6.0 I & 0 Intake and Output 07/15/19 07:00 Intake Total 2741.47 ml Output Total 570 ml Balance 2171.47 ml IV Total 2391.47 ml Blood Product 300 ml Blood Product IV Normal Saline Flush 50 ml Output Urine Total 570 ml PHYSICAL EXAM Physical Exam GENERAL: Intubated on MV HEENT: Mild icterus, Intubated NECK: Supple. LUNGS: Decreased breath sounds at the bases. HEART: S1, S2, tachycardia, 110s, ABDOMEN: Distended, + BS. Rectal tube in place : Lind + EXTREMITIES: Trace edema, no cyanosis - mottled. DERMATOLOGIC: Warm and dry. No generalized rash. CENTRAL NERVOUS SYSTEM: Intubated on RUE-PICC, RIJ/Temp HDC & LIJ DIAGNOSIS/ASSESSMENT Assessment & Plan JUANA - ATN, , requiring PODIATRIC AIDE, some improvement in uop intubated on 07/10 , currently on pressors initially on HD , Switched to CRRT 07/10 seen on CRRT, tolerating well (Temp HDC replaced today 2/2 nonfunctional ) Discussed with RN and Boy HyperKalemia- normal Acidosis - Bicarb Normal- on higher side , Dced IV bicarb on 07/10 Currently on TPN with bicarb HypoCalcemia- Corrected Ca normal Hypoalbuminemia- severe HypOPhos -Replace as needed Acute 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 GI, ID, and general surgery following Calculus of gallbladder with acute cholecystitis without obstruction - with secondary pancreatitis. Lap ronel is indicated, will need to await pancreatitis resolution HTN - Hypotensive currently and on pressors Sepsis - with acute pancreatitis as end organ dysfunction, sign of infection, zyvox, merrem Hypoxia with respiratory failure - intubated COMMENT/RELEVANT DATA Meds Current Medications Medications (Trade) Dose Ordered Sig/Yvon Start Time Stop Time Status Last Admin Dose Admin Acetaminophen (Tylenol Supp) 650 mg PRN Q6HRS PRN 07/12/19 10:30 07/12/19 10:37 650 MG Acetaminophen (Tylenol) 650 mg PRN Q6HRS PRN 07/09/19 03:36 07/14/19 07:35 650 MG Albumin Human 500 ml @ 125 mls/hr 1X ONCE 07/14/19 14:15 07/14/19 18:14 DC Albuterol Sulfate (Ventolin Neb Soln) 2.5 mg 1X ONCE 07/05/19 22:30 07/05/19 22:31 DC 07/06/19 00:56 2.5 MG Artificial Tears (Artificial Tears) 1 drop PRN Q1HR PRN 07/11/19 08:15 Atenolol (Tenormin) 100 mg DAILY 07/05/19 09:00 07/04/19 20:08 DC Benzocaine (Hurricaine One) 1 spray 1X ONCE 07/08/19 14:30 07/08/19 14:31 DC 07/08/19 16:38 1 SPRAY Calcium Carbonate/ Glycine (Tums) 500 mg PRN AFTMEALHC PRN 07/06/19 17:45 Calcium Chloride 1000 mg/Sodium Chloride 110 ml @ 220 mls/hr 1X ONCE 07/05/19 22:30 07/05/19 22:59 DC 07/05/19 22:11 220 MLS/HR Calcium Chloride 3000 mg/Sodium Chloride 1,030 ml @ 50 mls/hr [id number] 07/07/19 08:00 07/09/19 15:23 DC 07/09/19 02:17 50 MLS/HR Calcium Gluconate (Calcium Gluconate) 2,000 mg 1X ONCE 07/07/19 02:15 07/07/19 02:16 DC 07/07/19 02:19 2,000 MG Calcium Gluconate 1000 mg/Sodium Chloride 110 ml @ 220 mls/hr 1X ONCE 07/06/19 03:30 07/06/19 03:59 DC 07/06/19 03:21 220 MLS/HR Calcium Gluconate 2000 mg/Sodium Chloride 120 ml @ 220 mls/hr 1X ONCE 07/06/19 07:30 07/06/19 08:02 DC 07/06/19 09:05 220 MLS/HR Cefepime HCl (Maxipime) 2 gm Q12HR 07/13/19 09:00 07/15/19 09:00 2 GM Daptomycin 500 mg/ Sodium Chloride 50 ml @ 100 mls/hr Q48H 07/13/19 08:30 07/15/19 09:45 100 MLS/HR Dextrose (Dextrose 50%-Water Syringe) 12.5 gm PRN Q15MIN PRN 07/04/19 09:30 Digoxin (Lanoxin) 125 mcg 1X ONCE 07/07/19 18:00 07/07/19 18:01 DC 07/07/19 17:10 125 MCG Diphenhydramine HCl (Benadryl) 25 mg 1X PRN PRN 07/11/19 07:30 07/12/19 07:29 DC Etomidate (Amidate) 8 mg 1X ONCE 07/11/19 08:30 07/11/19 08:31 DC 07/11/19 08:33 8 MG Fentanyl Citrate 30 ml @ 0 mls/hr CONT PRN 07/11/19 08:15 07/15/19 00:53 3.75 MLS/HR Fentanyl Citrate (Fentanyl 2ml Vial) 100 mcg STK-MED ONCE 07/04/19 03:18 07/04/19 03:18 DC Furosemide (Lasix) 40 mg 1X ONCE 07/05/19 22:30 07/05/19 22:31 DC 07/05/19 22:12 40 MG Heparin Sodium (Porcine) (Heparin Sodium) 5,000 unit Q8HRS 07/11/19 15:00 07/14/19 05:35 5,000 UNIT Hydromorphone HCl (Dilaudid) 1 mg PRN Q3HRS PRN 07/05/19 12:00 07/11/19 05:13 1 MG Info (CONTRAST GIVEN -- Rx MONITORING) 1 each PRN DAILY PRN 07/05/19 17:00 07/07/19 16:59 DC Info (PHARMACY MONITORING -- do not chart) 1 each PRN DAILY PRN 07/11/19 07:30 Info (Tpn Per Pharmacy) 1 each PRN DAILY PRN 07/06/19 12:30 UNV Insulin Human Lispro (HumaLOG) 0-9 UNITS Q6HRS 07/04/19 09:30 07/15/19 06:01 5 UNITS Insulin Human Regular (HumuLIN R VIAL) 5 unit 1X ONCE 07/05/19 22:30 07/05/19 22:31 DC 07/05/19 22:14 5 UNIT Iohexol (Omnipaque 300 Mg/ml) 60 ml 1X ONCE 07/05/19 17:00 07/05/19 17:01 DC 07/05/19 17:20 60 ML Iohexol (Omnipaque 350 Mg/ml) 90 ml 1X ONCE 07/04/19 03:30 07/04/19 03:31 DC 07/04/19 03:25 90 ML Ketorolac Tromethamine (Toradol 30mg Vial) 30 mg 1X ONCE 07/04/19 03:00 07/04/19 03:01 DC 07/04/19 02:54 30 MG Lidocaine HCl (Buffered Lidocaine 1%) 3 ml 1X ONCE 07/13/19 10:30 07/13/19 10:31 DC 07/13/19 10:27 3 ML Lidocaine HCl (Glydo (Lidocaine) Jelly) 1 ramu 1X ONCE 07/08/19 14:30 07/08/19 14:31 DC 07/08/19 16:38 1 RAMU Lidocaine HCl (Xylocaine-Mpf 1% 2ml Vial) 2 ml STK-MED ONCE 07/06/19 08:47 07/06/19 08:47 DC Linezolid/Dextrose 300 ml @ 300 mls/hr Q12HR 07/08/19 20:00 07/15/19 07:50 DC 07/14/19 21:04 300 MLS/HR Lorazepam (Ativan Inj) 1 mg PRN Q4HRS PRN 07/07/19 09:00 07/11/19 00:34 1 MG Magnesium Sulfate 100 ml @ 25 mls/hr 1X ONCE 07/07/19 13:00 07/07/19 16:59 DC 07/07/19 12:48 25 MLS/HR Meropenem 1 gm/ Sodium Chloride 100 ml @ 200 mls/hr Q8HRS 07/05/19 20:00 07/06/19 08:48 DC 07/06/19 05:45 200 MLS/HR Meropenem 500 mg/ Sodium Chloride 50 ml @ 100 mls/hr Q6HRS 07/12/19 09:00 07/13/19 07:29 DC 07/13/19 06:00 100 MLS/HR Metoprolol Tartrate (Lopressor Vial) 5 mg Q6HRS 07/05/19 10:15 07/14/19 00:12 5 MG Metronidazole 100 ml @ 100 mls/hr Q6HRS 07/11/19 08:30 07/15/19 05:59 100 MLS/HR Micafungin Sodium 100 mg/Dextrose 100 ml @ 100 mls/hr Q24H 07/11/19 09:00 07/15/19 09:01 100 MLS/HR Midazolam HCl (Versed) 5 mg 1X ONCE 07/11/19 08:30 07/11/19 08:31 DC Midazolam HCl 50 mg/Sodium Chloride 50 ml @ 0 mls/hr CONT PRN 07/11/19 08:15 07/14/19 22:39 7 MLS/HR Morphine Sulfate (Morphine Sulfate) 2 mg PRN Q2HR PRN 07/04/19 05:00 07/05/19 14:15 DC 07/05/19 12:26 2 MG Multi-Ingred Cream/Lotion/Oil/ Oint (Artificial Tears Eye Ointment) 1 ramu PRN Q1HR PRN 07/13/19 17:30 Norepinephrine Bitartrate 8 mg/ Dextrose 258 ml @ 17.299 mls/ hr CONT PRN 07/05/19 15:30 07/14/19 01:42 10.379 MLS/HR Ondansetron HCl (Zofran) 4 mg PRN Q4HRS PRN 07/04/19 09:30 07/09/19 16:15 4 MG Pantoprazole Sodium (PROTONIX VIAL for IV PUSH) 40 mg DAILYAC 07/04/19 11:30 07/15/19 09:02 40 MG Piperacillin Sod/ Tazobactam Sod 4.5 gm/Sodium Chloride 100 ml @ 200 mls/hr 1X ONCE 07/04/19 06:00 07/04/19 06:29 DC 07/04/19 05:44 200 MLS/HR Potassium Chloride 15 meq/ Bicarbonate Dialysis Soln w/ out KCl 5,007.5 ml @ 1,000 mls/ hr Q5H1M 07/11/19 12:00 07/12/19 11:19 DC 07/12/19 11:11 1,000 MLS/HR Potassium Chloride 20 meq/ Bicarbonate Dialysis Soln w/ out KCl 5,010 ml @ 1,000 mls/hr Q5H1M 07/13/19 16:00 07/15/19 09:04 1,000 MLS/HR Potassium Chloride/Water 100 ml @ 100 mls/hr Q1H 07/12/19 11:00 07/12/19 12:59 DC 07/12/19 12:12 100 MLS/HR Potassium Phosphate 20 mmol/ Sodium Chloride 106.6667 ml @ 51.667 m... 1X ONCE 07/13/19 13:00 07/13/19 15:03 DC 07/13/19 12:51 51.667 MLS/HR Prochlorperazine Edisylate (Compazine) 10 mg PRN Q6HRS PRN 07/04/19 17:45 07/05/19 00:42 10 MG Propofol 0 ml @ As Directed STK-MED ONCE 07/11/19 07:53 07/11/19 07:53 DC Sodium Bicarbonate 50 meq/Sodium Chloride 1,050 ml @ 75 mls/hr Q14H 07/06/19 07:30 07/11/19 10:28 DC 07/10/19 21:10 75 MLS/HR Sodium Chloride (Normal Saline Flush) 10 ml 1X PRN PRN 07/09/19 08:00 07/10/19 07:59 DC Sodium Chloride 90 meq/Calcium Gluconate 10 meq/ Multivitamins 10 ml/Chromium/ Copper/Manganese/ Seleni/Zn 0.5 ml/ Total Parenteral Nutrition/Amino Acids/Dextrose/ Fat Emulsion Intravenous 1,512 ml @ 63 mls/hr TPN CONT 07/06/19 22:00 07/07/19 21:59 DC 07/06/19 22:06 63 MLS/HR Sodium Chloride 90 meq/Calcium Gluconate 10 meq/ Multivitamins 10 ml/Chromium/ Copper/Manganese/ Seleni/Zn 1 ml/ Total Parenteral Nutrition/Amino Acids/Dextrose/ Fat Emulsion Intravenous 55.005 ml @ 2.292 mls/hr TPN CONT 07/06/19 22:00 07/06/19 12:33 DC Sodium Chloride 90 meq/Magnesium Sulfate 10 meq/ Calcium Gluconate 20 meq/ Multivitamins 10 ml/Chromium/ Copper/Manganese/ Seleni/Zn 0.5 ml/ Total Parenteral Nutrition/Amino Acids/Dextrose/ Fat Emulsion Intravenous 1,512 ml @ 63 mls/hr TPN CONT 07/07/19 22:00 07/08/19 21:59 DC 07/07/19 22:25 63 MLS/HR Sodium Chloride 90 meq/Potassium Chloride 15 meq/ Potassium Phosphate 10 mmol/ Magnesium Sulfate 10 meq/Calcium Gluconate 20 meq/ Multivitamins 10 ml/Chromium/ Copper/Manganese/ Seleni/Zn 0.5 ml/ Total Parenteral Nutrition/Amino Acids/Dextrose/ Fat Emulsion Intravenous 1,400 ml @ 58.333 mls/ hr TPN CONT 07/11/19 22:00 07/12/19 21:59 DC 07/11/19 21:42 58.333 MLS/HR Sodium Chloride 90 meq/Potassium Chloride 15 meq/ Potassium Phosphate 15 mmol/ Magnesium Sulfate 10 meq/Calcium Gluconate 15 meq/ Multivitamins 10 ml/Chromium/ Copper/Manganese/ Seleni/Zn 0.5 ml/ Total Parenteral Nutrition/Amino Acids/Dextrose/ Fat Emulsion Intravenous 1,400 ml @ 58.333 mls/ hr TPN CONT 07/12/19 22:00 07/13/19 21:59 DC 07/12/19 22:17 58.333 MLS/HR Sodium Chloride 90 meq/Potassium Chloride 15 meq/ Potassium Phosphate 15 mmol/ Magnesium Sulfate 10 meq/Calcium Gluconate 20 meq/ Multivitamins 10 ml/Chromium/ Copper/Manganese/ Seleni/Zn 0.5 ml/ Total Parenteral Nutrition/Amino Acids/Dextrose/ Fat Emulsion Intravenous 1,200 ml @ 50 mls/hr TPN CONT 07/10/19 22:00 07/10/19 14:17 DC Sodium Chloride 90 meq/Potassium Chloride 15 meq/ Potassium Phosphate 18 mmol/ Magnesium Sulfate 8 meq/Calcium Gluconate 15 meq/ Multivitamins 10 ml/Chromium/ Copper/Manganese/ Seleni/Zn 0.5 ml/ Total Parenteral Nutrition/Amino Acids/Dextrose/ Fat Emulsion Intravenous 1,400 ml @ 58.333 mls/ hr TPN CONT 07/14/19 22:00 07/15/19 21:59 07/14/19 22:00 58.333 MLS/HR Succinylcholine Chloride (Anectine) 120 mg 1X ONCE 07/11/19 08:30 07/11/19 08:31 DC 07/11/19 08:34 120 MG Lab Laboratory Tests Test 07/14/19 10:30 07/14/19 12:01 07/14/19 16:00 07/14/19 23:20 Influenza Type A Antigen Negative (NEGATIVE) Influenza Type B Antigen Negative (NEGATIVE) Glucose (Fingerstick) 264 mg/dL (70-99) 255 mg/dL (70-99) Magnesium Level 2.3 mg/dL (1.8-2.4) 2.3 mg/dL (1.8-2.4) OU-Cyk-Q-Type Natriuretic Peptide 106 pg/mL (0-124) Sodium Level 139 mmol/L (136-145) Potassium Level 4.1 mmol/L (3.5-5.1) Chloride Level 104 mmol/L (98-107) Carbon Dioxide Level 25 mmol/L (21-32) Anion Gap 10 (6-14) Blood Urea Nitrogen 48 mg/dL (7-20) Creatinine 1.9 mg/dL (0.6-1.0) Estimated GFR (Cockcroft-Gault) 28.1 Glucose Level 252 mg/dL (70-99) Calcium Level 7.6 mg/dL (8.5-10.1) Phosphorus Level 4.1 mg/dL (2.6-4.7) Test 07/15/19 05:50 07/15/19 05:57 White Blood Count 34.3 x10^3/uL (4.0-11.0) Red Blood Count 2.51 x10^6/uL (3.50-5.40) Hemoglobin 7.8 g/dL (12.0-15.5) Hematocrit 24.4 % (36.0-47.0) Mean Corpuscular Volume 97 fL (79-100) Mean Corpuscular Hemoglobin 31 pg (25-35) Mean Corpuscular Hemoglobin Concent 32 g/dL (31-37) Red Cell Distribution Width 15.9 % (11.5-14.5) Platelet Count 281 x10^3/uL (140-400) Neutrophils (%) (Auto) 91 % (31-73) Lymphocytes (%) (Auto) 4 % (24-48) Monocytes (%) (Auto) 3 % (0-9) Eosinophils (%) (Auto) 2 % (0-3) Basophils (%) (Auto) 0 % (0-3) Neutrophils # (Auto) 31.3 x10^3/uL (1.8-7.7) Lymphocytes # (Auto) 1.3 x10^3/uL (1.0-4.8) Monocytes # (Auto) 1.1 x10^3/uL (0.0-1.1) Eosinophils # (Auto) 0.6 x10^3/uL (0.0-0.7) Basophils # (Auto) 0.1 x10^3/uL (0.0-0.2) Sodium Level 139 mmol/L (136-145) Potassium Level 4.4 mmol/L (3.5-5.1) Chloride Level 106 mmol/L (98-107) Carbon Dioxide Level 25 mmol/L (21-32) Anion Gap 8 (6-14) Blood Urea Nitrogen 44 mg/dL (7-20) Creatinine 1.6 mg/dL (0.6-1.0) Estimated GFR (Cockcroft-Gault) 34.3 BUN/Creatinine Ratio 28 (6-20) Glucose Level 216 mg/dL (70-99) Calcium Level 7.7 mg/dL (8.5-10.1) Phosphorus Level 4.3 mg/dL (2.6-4.7) Magnesium Level 2.1 mg/dL (1.8-2.4) Total Bilirubin 0.5 mg/dL (0.2-1.0) Aspartate Amino Transf (AST/SGOT) 34 U/L (15-37) Alanine Aminotransferase (ALT/SGPT) 18 U/L (14-59) Alkaline Phosphatase 108 U/L (46-116) Total Protein 4.5 g/dL (6.4-8.2) Albumin 1.7 g/dL (3.4-5.0) Albumin/Globulin Ratio 0.6 (1.0-1.7) Triglycerides Level 240 mg/dL (0-150) Glucose (Fingerstick) 225 mg/dL (70-99) Results All relevant outside records, renal labs, imaging studies, telemetry/EKG's were reviewed. VERENA KENT MD Jul 15, 2019 10:01
--- NOTE | 2019-07-15 10:30 | NUR ---
Heparin SQ held again today for low hgb. Discussed with Dr. Dos Santos.
[2019-07-15 10:37] LABS: CALCIUM 7.8 mg/dL (8.5-10.1); CREATININE 1.7 mg/dL (0.6-1.0); GFR 31.9; POTASSIUM 4.3 mmol/L (3.5-5.1)
--- NOTE | 2019-07-15 10:51 | PDOC ---
Objective: Objective: Abd seems firmer per nurse. Vital Signs: Vital Signs Date Time Temp Pulse Resp B/P (MAP) Pulse Ox O2 Delivery O2 Flow Rate FiO2 07/15/19 10:08 100 Ventilator 07/15/19 09:00 124 26 121/92 (102) 07/15/19 07:00 98.4 98.4 07/15/19 02:06 6.0 Labs: Laboratory Tests Test 07/14/19 12:01 07/14/19 23:20 07/15/19 05:57 Glucose (Fingerstick) 264 mg/dL (70-99) 255 mg/dL (70-99) 225 mg/dL (70-99) PE: GEN: intubated, CRRT LUNGS: clear HEART: tachycardic ABD: distended, more firm NEURO/PSYCH: sedated A/P: Gallstone pancreatitis, MOSF, r/o COVID-19 -- Continue support. Hemodynamically unstable?: Yes Is patient in severe pain?: Yes Is NPO status required?: Yes CYNDEE FALCON Jul 15, 2019 10:51
--- NOTE | 2019-07-15 11:57 | PDOC ---
[facility] PROGRESS NOTE Chief Complaint Chief Complaint Respiratory failure requiring mechanical ventilation Severe Acute pancreatitis Acute kidney failure now requiring dialysis Salpingo--itis Gallstones (Calculus of gallbladder with acute cholecystitis without obstruction) HTN Leukocytosis Hypoxia Uterine fibroid Hypoxia with respiratory failure Intractable pain Intractable nausea Possible Covid 19? History of Present Illness History of Present Illness [id number] Patient seen and examined in the ICU She is now been transferred to the Covid 19 unit so we can rule out Covid and keep her in isolation Very critically ill Intubated and ventilated Assist control 40% Chart reviewed Discussed with RN Still on CRRT Getting a chest x-ray now Very concerned about her prognosis [id number] Patient seen and examined in the ICU She is extremely critically ill Remains mechanically ventilated with assist control/25/450/40% Also on continuous renal replacement therapy Chart reviewed Discussed with RN She has TPN hanging Also on pressors [id number] Patient seen and examined in the ICU She is still requiring CRRT On the vent with assist control but her FiO2 is down to 40% from yesterday Slightly better but still very critically ill Discussed with RN Chart reviewed [id number] Patient seen and examined in the ICU She remains extremely critically ill On IV fentanyl IV Versed IV Doxy On the vent Assist-control/25/450/70% She is critically ill Discussed with RN Chart reviewed Patient is currently on CRRT as well [id number] Patient seen and examined in the ICU She had to be intubated this morning On assist-control 25/450/100% with 10 of PEEP and only satting 87% She is extremely critically ill I'm not sure if she will survive Chart reviewed Discussed with RN Ms Diaz is a 48yo F w/ PMHx HTN, prediabetes who presents the emergency room complaints of abdominal pain. Patient described off and on 3 days. She states is constant, described as a squeezing sensation in a band-like distribution. + nausea, vomiting. She denies any fever or diarrhea. Patient denies any abdominal surgical procedures. She states is worse with movements, car ride. Pain initially was upper abdomen however now pretty much generalized. Last bowel movement was 07/03/2019. Nothing makes her pain better. Patient denies any shortness of breath. She does state the pain moves into her chest. Denies any headache or visual changes. Lipase 81358, AST 401, ALT 249, Bilirubin 1.4. CT abdomen confirms pancreatic inflammation, peripancreatic fluid and inflammatory changes around the pancreas consistent with pancreatitis. Cholelithiasis and 1.4cm uterine fibroid as well as possible left salpingitis. Admitted for further care GI, General surgery, ID, Pulm consulted. 07/04: Overnight per report no urine output. Added dilaudid for pain, PICC placed per IR. Renal US negative.Seen bedside in ICU, given 2L additional NSS and albumin infusion. Still hypotensive, started on levophed. Repeat CT abdomen with necrosis. Updated her fiancee 07/05: Sats are only 87% on nasal cannula oxygen. Dialysis catheter per nephrology 07/06: She is now on BiPAP appears more ill, now on dialysis 07/07: Seen on BiPAP. Her mother and another family member are present and seemed to be good support for her. Currently on dialysis. Appears critically ill 07/08: Overnight Tmax 101.7 , still on BiPAP FiO2 40%, still on low dose Levophed gtt, TPN initiated. On dialysis Overnight still febrile. Dialysis today. She wakes up and responds to pain. No CP. Vitals/I&O Vitals/I&O: Vital Signs Date Time Temp Pulse Resp B/P (MAP) Pulse Ox O2 Delivery O2 Flow Rate FiO2 07/15/19 11:00 115 25 105/62 (76) 100 Ventilator 07/15/19 07:00 98.4 98.4 07/15/19 02:06 6.0 I & O 07/14/19 07/14/19 07/15/19 15:00 23:00 07:00 Intake Total 500 ml 1098.47 ml 1143 ml Output Total 210 ml 155 ml 250 ml Balance 290 ml 943.47 ml 893 ml Physical Exam Physical Exam: GENERAL:Intubated/sedated - generalizd anasarca has increased HEENT: Mild icterus. Oral mucosa very dry. NECK: Supple. LUNGS: Decreased breath sounds at the bases. HEART: S1, S2, tachycardia, regular ABDOMEN: Distended more, + BS. Rectal tube in place - soft : Lind EXTREMITIES: Trace edema, no cyanosis - mild increased mottled but and toes remain non ischemic in appearance but right colder than left - Rooke boots in place DERMATOLOGIC: Warm and dry. No generalized rash. CENTRAL NERVOUS SYSTEM: Intubated - rhythmic movements of head continue do not seem to coordinate with Vent IV: RIJ Temp HDC & RUE PICC - Left IJ General: Other (sedated ) Heart: Other (increased rate) Lungs: Crackles Abdomen: Soft Extremities: No edema, Other (SOME CLUBBING ) Skin: Other (mottling noted to extremities ) Labs Labs: Laboratory Tests Test 07/14/19 12:01 07/14/19 16:00 07/14/19 23:20 07/15/19 05:50 Glucose (Fingerstick) 264 mg/dL (70-99) 255 mg/dL (70-99) Magnesium Level 2.3 mg/dL (1.8-2.4) 2.3 mg/dL (1.8-2.4) 2.1 mg/dL (1.8-2.4) CO-Ppr-U-Type Natriuretic Peptide 106 pg/mL (0-124) Sodium Level 139 mmol/L (136-145) 139 mmol/L (136-145) Potassium Level 4.1 mmol/L (3.5-5.1) 4.4 mmol/L (3.5-5.1) Chloride Level 104 mmol/L (98-107) 106 mmol/L (98-107) Carbon Dioxide Level 25 mmol/L (21-32) 25 mmol/L (21-32) Anion Gap 10 (6-14) 8 (6-14) Blood Urea Nitrogen 48 mg/dL (7-20) 44 mg/dL (7-20) Creatinine 1.9 mg/dL (0.6-1.0) 1.6 mg/dL (0.6-1.0) Estimated GFR (Cockcroft-Gault) 28.1 34.3 Glucose Level 252 mg/dL (70-99) 216 mg/dL (70-99) Calcium Level 7.6 mg/dL (8.5-10.1) 7.7 mg/dL (8.5-10.1) Phosphorus Level 4.1 mg/dL (2.6-4.7) 4.3 mg/dL (2.6-4.7) White Blood Count 34.3 x10^3/uL (4.0-11.0) Red Blood Count 2.51 x10^6/uL (3.50-5.40) Hemoglobin 7.8 g/dL (12.0-15.5) Hematocrit 24.4 % (36.0-47.0) Mean Corpuscular Volume 97 fL (79-100) Mean Corpuscular Hemoglobin 31 pg (25-35) Mean Corpuscular Hemoglobin Concent 32 g/dL (31-37) Red Cell Distribution Width 15.9 % (11.5-14.5) Platelet Count 281 x10^3/uL (140-400) Neutrophils (%) (Auto) 91 % (31-73) Lymphocytes (%) (Auto) 4 % (24-48) Monocytes (%) (Auto) 3 % (0-9) Eosinophils (%) (Auto) 2 % (0-3) Basophils (%) (Auto) 0 % (0-3) Neutrophils # (Auto) 31.3 x10^3/uL (1.8-7.7) Lymphocytes # (Auto) 1.3 x10^3/uL (1.0-4.8) Monocytes # (Auto) 1.1 x10^3/uL (0.0-1.1) Eosinophils # (Auto) 0.6 x10^3/uL (0.0-0.7) Basophils # (Auto) 0.1 x10^3/uL (0.0-0.2) BUN/Creatinine Ratio 28 (6-20) Total Bilirubin 0.5 mg/dL (0.2-1.0) Aspartate Amino Transf (AST/SGOT) 34 U/L (15-37) Alanine Aminotransferase (ALT/SGPT) 18 U/L (14-59) Alkaline Phosphatase 108 U/L (46-116) Total Protein 4.5 g/dL (6.4-8.2) Albumin 1.7 g/dL (3.4-5.0) Albumin/Globulin Ratio 0.6 (1.0-1.7) Triglycerides Level 240 mg/dL (0-150) Test 07/15/19 05:57 07/15/19 09:15 Glucose (Fingerstick) 225 mg/dL (70-99) Sodium Level 138 mmol/L (136-145) Potassium Level 4.3 mmol/L (3.5-5.1) Chloride Level 105 mmol/L (98-107) Carbon Dioxide Level 24 mmol/L (21-32) Anion Gap 9 (6-14) Blood Urea Nitrogen 44 mg/dL (7-20) Creatinine 1.7 mg/dL (0.6-1.0) Estimated GFR (Cockcroft-Gault) 31.9 Glucose Level 250 mg/dL (70-99) Calcium Level 7.8 mg/dL (8.5-10.1) Magnesium Level 2.2 mg/dL (1.8-2.4) Review of Systems Review of Systems: Unable to obtain Assessment and Plan Assessmemt and Plan Problems Medical Problems: (1) Acute pancreatitis Status: Acute (2) Cholelithiasis Status: Acute Respiratory failure requiring intubation this morning Severe Acute pancreatitis Acute kidney failure now requiring dialysis Salpingo--itis Gallstones (Calculus of gallbladder with acute cholecystitis without obstruction) HTN Leukocytosis Hypoxia Uterine fibroid Hypoxia with respiratory failure Intractable pain Intractable nausea Plan Checking Covid 19 await results CRRT Mechanical ventilation Hemodialysis BiPAP ICU monitoring Trend labs especially white count and lipase levels We have consulted GI and general surgery Appreciate pulmonary assistance as well IV antibiotics IV fluids MO narcotics When necessary anti-medics Home meds if possible DVT prophylaxis Full code She is critically ill Total time 33 minutes Comment Review of Relevant I have reviewed the following items kolby (where applicable) has been applied. Medications: Current Medications Medications (Trade) Dose Ordered Sig/Yvon Route PRN Reason Start Time Stop Time Status Last Admin Dose Admin Sodium Chloride 90 meq/Potassium Chloride 15 meq/ Potassium Phosphate 18 mmol/ Magnesium Sulfate 8 meq/Calcium Gluconate 15 meq/ Multivitamins 10 ml/Chromium/ Copper/Manganese/ Seleni/Zn 0.5 ml/ Total Parenteral Nutrition/Amino Acids/Dextrose/ Fat Emulsion Intravenous 1,400 ml @ 58.333 mls/ hr TPN CONT IV 07/14/19 22:00 07/15/19 21:59 07/14/19 22:00 Hemodynamically unstable?: Yes Is patient in severe pain?: Yes Is NPO status required?: Yes BEBO KIRBY III DO Jul 15, 2019 11:57
[2019-07-15 12:54] LABS: BASE EXCESS ABG -5 mmol/L (-3-3); HCO3 ABG 21 mmol/L (21-28); PCO2 ABG 40 mmHg (35-46); PO2 ABG 110 mmHg (75-108); SAT O2 ABG 97 % (92-99)
[2019-07-15 12:59] LABS: FIO2 ABG 40%
[2019-07-15] MEDS: TPN PER PHARMACY MC PRN (13:28)
--- NOTE | 2019-07-15 13:28 | NUR ---
Pharmacy TPN Dosing Note S: SCOTT AVILA is a 48 year old F Currently receiving Central Continuous TPN started 07/06/19 B:Pertinent PMH: Necrotizing pancreatitis Height: 5 feet, 8 inches Weight: 112 kg Current diet: NPO LABS: Sodium: 138 Potassium: 4.3 Chloride: 105 Calcium: 7.8 Corrected Calcium: 9.48 Magnesium: 2.2 CO2: 24 SCr: 1.7 Glucose: 250 Albumin: 1.9 AST: 37 ALT: 16 TPN FORMULA: TPN TYPE: Central Continuous AMINO ACIDS: 125 gm DEXTROSE: 195 gm LIPIDS: 40 gm SODIUM CHLORIDE: 90 mEq POTASSIUM CHLORIDE: 15 mEq POTASSIUM PHOSPHATE: 18 mmol MAGNESIUM: 8 mEq CALCIUM: 15 mEq INSULIN: 10 units MULTIPLE VITAMIN: 10 ml TRACE ELEMENTS: 0.5 ml TPN PLAN: -Electrolytes remain WNL and appear stable for now. Still on CRRT. -Blood glucose values all above goal range, add regular insulin 10 units to TPN. -Labs per nephrology for CRRT monitoring. R: Continue TPN @ current rate and with above formula. Will monitor electrolytes, glucose, and tolerance to TPN. SHARON CHRISTIANSON, [facility], 07/15/19 [id number]
[2019-07-15 13:37] LABS: CALCIUM 7.9 mg/dL (8.5-10.1); CREATININE 1.8 mg/dL (0.6-1.0); GFR 29.9; POTASSIUM 4.4 mmol/L (3.5-5.1)
[2019-07-15 13:38] LABS: MAGNESIUM 2.1 mg/dL (1.8-2.4)
--- NOTE | 2019-07-15 13:59 | EEG ---
DATE OF SERVICE: 07/15/2019 EEG NUMBER: [id number]. OBJECTIVE: The patient is a 48-year-old female with severe encephalopathy and possible seizure activity. DESCRIPTION: This is a digital study. Electrodes are placed according to the international 10-20 system. Bipolar and referential montages are available. Activation procedures typically include hyperventilation and intermittent photic stimulation. INTERPRETATION: The background consists of 2-5 Hz, 20-50 microvolt activity. There is no reactivity. Hyperventilation is not performed, intermittent photic stimulation is noncontributory. Sleep is not achieved. IMPRESSION: This electroencephalogram with the patient in an obtunded state shows a moderate-severe disturbance of cerebral activity consistent with any of a variety of toxic or metabolic encephalopathies. There is no focal, paroxysmal, or epileptiform activity. Thank you for letting us help with the patient's care. ABI AHN MD DR: CHRISTEL/jennifer JOB#: [id number] / [id number]
[2019-07-15] MEDS: ALBUMIN HUMAN 5% 500 ML IV PRN (14:11)
--- NOTE | 2019-07-15 14:38 | NUR ---
SS following up with discharge planning. SS discussed with pt RN. Pt remains on the vent, CRRT, has fever, and on Levophed. SS will continue to follow for discharge planning.
--- NOTE | 2019-07-15 15:03 | PDOC ---
SURGICAL PROGRESS NOTE Subjective Pt intubated, sedated, remains critical Vital Signs Vital Signs Date Time Temp Pulse Resp B/P (MAP) Pulse Ox O2 Delivery O2 Flow Rate FiO2 07/15/19 14:23 102 26 109/62 (78) 100 Ventilator 07/15/19 12:00 99.4 99.4 07/15/19 02:06 6.0 I&O Intake and Output 07/15/19 06:59 Intake Total 2741.47 ml Output Total 590 ml Balance 2151.47 ml IV Total 2391.47 ml Blood Product 300 ml Blood Product IV Normal Saline Flush 50 ml Output Urine Total 590 ml PATIENT HAS A ROSARIO: Yes (accurate i and os) Abdomen: Soft, Other (distended, obese, no obvious TTP) Labs Laboratory Tests Test 07/13/19 17:38 07/13/19 21:00 07/14/19 00:20 07/14/19 05:20 Glucose (Fingerstick) 253 mg/dL (70-99) 210 mg/dL (70-99) Sodium Level 138 mmol/L (136-145) 137 mmol/L (136-145) Potassium Level 3.7 mmol/L (3.5-5.1) 3.8 mmol/L (3.5-5.1) Chloride Level 104 mmol/L (98-107) 103 mmol/L (98-107) Carbon Dioxide Level 27 mmol/L (21-32) 22 mmol/L (21-32) Anion Gap 7 (6-14) 12 (6-14) Blood Urea Nitrogen 44 mg/dL (7-20) 59 mg/dL (7-20) Creatinine 2.0 mg/dL (0.6-1.0) 2.5 mg/dL (0.6-1.0) Estimated GFR (Cockcroft-Gault) 26.5 20.5 Glucose Level 195 mg/dL (70-99) 279 mg/dL (70-99) Calcium Level 7.5 mg/dL (8.5-10.1) 7.7 mg/dL (8.5-10.1) Phosphorus Level 3.6 mg/dL (2.6-4.7) Magnesium Level 2.3 mg/dL (1.8-2.4) White Blood Count 23.8 x10^3/uL (4.0-11.0) Red Blood Count 1.97 x10^6/uL (3.50-5.40) Hemoglobin 6.5 g/dL (12.0-15.5) Hematocrit 19.3 % (36.0-47.0) Mean Corpuscular Volume 98 fL (79-100) Mean Corpuscular Hemoglobin 33 pg (25-35) Mean Corpuscular Hemoglobin Concent 34 g/dL (31-37) Red Cell Distribution Width 13.8 % (11.5-14.5) Platelet Count 274 x10^3/uL (140-400) Neutrophils (%) (Auto) 89 % (31-73) Lymphocytes (%) (Auto) 5 % (24-48) Monocytes (%) (Auto) 4 % (0-9) Eosinophils (%) (Auto) 1 % (0-3) Basophils (%) (Auto) 0 % (0-3) Neutrophils # (Auto) 21.2 x10^3/uL (1.8-7.7) Lymphocytes # (Auto) 1.2 x10^3/uL (1.0-4.8) Monocytes # (Auto) 1.0 x10^3/uL (0.0-1.1) Eosinophils # (Auto) 0.3 x10^3/uL (0.0-0.7) Basophils # (Auto) 0.1 x10^3/uL (0.0-0.2) BUN/Creatinine Ratio 24 (6-20) Total Bilirubin 0.6 mg/dL (0.2-1.0) Aspartate Amino Transf (AST/SGOT) 37 U/L (15-37) Alanine Aminotransferase (ALT/SGPT) 16 U/L (14-59) Alkaline Phosphatase 83 U/L (46-116) Total Protein 4.3 g/dL (6.4-8.2) Albumin 1.9 g/dL (3.4-5.0) Albumin/Globulin Ratio 0.8 (1.0-1.7) Test 07/14/19 05:32 07/14/19 07:45 07/14/19 10:30 07/14/19 12:01 Glucose (Fingerstick) 269 mg/dL (70-99) 264 mg/dL (70-99) O2 Saturation 96 % (92-99) Arterial Blood pH 7.43 (7.35-7.45) Arterial Blood pCO2 at Patient Temp 32 mmHg (35-46) Arterial Blood pO2 at Patient Temp 94 mmHg (75-108) Arterial Blood HCO3 21 mmol/L (21-28) Arterial Blood Base Excess -3 mmol/L (-3-3) FiO2 40% Influenza Type A Antigen Negative (NEGATIVE) Influenza Type B Antigen Negative (NEGATIVE) Test 07/14/19 16:00 07/14/19 23:20 07/15/19 05:50 07/15/19 05:57 Magnesium Level 2.3 mg/dL (1.8-2.4) 2.3 mg/dL (1.8-2.4) 2.1 mg/dL (1.8-2.4) XY-Xxt-I-Type Natriuretic Peptide 106 pg/mL (0-124) Sodium Level 139 mmol/L (136-145) 139 mmol/L (136-145) Potassium Level 4.1 mmol/L (3.5-5.1) 4.4 mmol/L (3.5-5.1) Chloride Level 104 mmol/L (98-107) 106 mmol/L (98-107) Carbon Dioxide Level 25 mmol/L (21-32) 25 mmol/L (21-32) Anion Gap 10 (6-14) 8 (6-14) Blood Urea Nitrogen 48 mg/dL (7-20) 44 mg/dL (7-20) Creatinine 1.9 mg/dL (0.6-1.0) 1.6 mg/dL (0.6-1.0) Estimated GFR (Cockcroft-Gault) 28.1 34.3 Glucose Level 252 mg/dL (70-99) 216 mg/dL (70-99) Glucose (Fingerstick) 255 mg/dL (70-99) 225 mg/dL (70-99) Calcium Level 7.6 mg/dL (8.5-10.1) 7.7 mg/dL (8.5-10.1) Phosphorus Level 4.1 mg/dL (2.6-4.7) 4.3 mg/dL (2.6-4.7) White Blood Count 34.3 x10^3/uL (4.0-11.0) Red Blood Count 2.51 x10^6/uL (3.50-5.40) Hemoglobin 7.8 g/dL (12.0-15.5) Hematocrit 24.4 % (36.0-47.0) Mean Corpuscular Volume 97 fL (79-100) Mean Corpuscular Hemoglobin 31 pg (25-35) Mean Corpuscular Hemoglobin Concent 32 g/dL (31-37) Red Cell Distribution Width 15.9 % (11.5-14.5) Platelet Count 281 x10^3/uL (140-400) Neutrophils (%) (Auto) 91 % (31-73) Lymphocytes (%) (Auto) 4 % (24-48) Monocytes (%) (Auto) 3 % (0-9) Eosinophils (%) (Auto) 2 % (0-3) Basophils (%) (Auto) 0 % (0-3) Neutrophils # (Auto) 31.3 x10^3/uL (1.8-7.7) Lymphocytes # (Auto) 1.3 x10^3/uL (1.0-4.8) Monocytes # (Auto) 1.1 x10^3/uL (0.0-1.1) Eosinophils # (Auto) 0.6 x10^3/uL (0.0-0.7) Basophils # (Auto) 0.1 x10^3/uL (0.0-0.2) BUN/Creatinine Ratio 28 (6-20) Total Bilirubin 0.5 mg/dL (0.2-1.0) Aspartate Amino Transf (AST/SGOT) 34 U/L (15-37) Alanine Aminotransferase (ALT/SGPT) 18 U/L (14-59) Alkaline Phosphatase 108 U/L (46-116) Total Protein 4.5 g/dL (6.4-8.2) Albumin 1.7 g/dL (3.4-5.0) Albumin/Globulin Ratio 0.6 (1.0-1.7) Triglycerides Level 240 mg/dL (0-150) Test 07/15/19 08:00 07/15/19 09:15 07/15/19 12:15 O2 Saturation 97 % (92-99) Arterial Blood pH 7.33 (7.35-7.45) Arterial Blood pCO2 at Patient Temp 40 mmHg (35-46) Arterial Blood pO2 at Patient Temp 110 mmHg (75-108) Arterial Blood HCO3 21 mmol/L (21-28) Arterial Blood Base Excess -5 mmol/L (-3-3) FiO2 40% Sodium Level 138 mmol/L (136-145) 138 mmol/L (136-145) Potassium Level 4.3 mmol/L (3.5-5.1) 4.4 mmol/L (3.5-5.1) Chloride Level 105 mmol/L (98-107) 104 mmol/L (98-107) Carbon Dioxide Level 24 mmol/L (21-32) 24 mmol/L (21-32) Anion Gap 9 (6-14) 10 (6-14) Blood Urea Nitrogen 44 mg/dL (7-20) 45 mg/dL (7-20) Creatinine 1.7 mg/dL (0.6-1.0) 1.8 mg/dL (0.6-1.0) Estimated GFR (Cockcroft-Gault) 31.9 29.9 Glucose Level 250 mg/dL (70-99) 261 mg/dL (70-99) Calcium Level 7.8 mg/dL (8.5-10.1) 7.9 mg/dL (8.5-10.1) Magnesium Level 2.2 mg/dL (1.8-2.4) 2.1 mg/dL (1.8-2.4) Phosphorus Level 3.8 mg/dL (2.6-4.7) Laboratory Tests Test 07/14/19 16:00 07/14/19 23:20 07/15/19 05:50 07/15/19 05:57 Magnesium Level 2.3 mg/dL (1.8-2.4) 2.3 mg/dL (1.8-2.4) 2.1 mg/dL (1.8-2.4) LZ-Ian-J-Type Natriuretic Peptide 106 pg/mL (0-124) Sodium Level 139 mmol/L (136-145) 139 mmol/L (136-145) Potassium Level 4.1 mmol/L (3.5-5.1) 4.4 mmol/L (3.5-5.1) Chloride Level 104 mmol/L (98-107) 106 mmol/L (98-107) Carbon Dioxide Level 25 mmol/L (21-32) 25 mmol/L (21-32) Anion Gap 10 (6-14) 8 (6-14) Blood Urea Nitrogen 48 mg/dL (7-20) 44 mg/dL (7-20) Creatinine 1.9 mg/dL (0.6-1.0) 1.6 mg/dL (0.6-1.0) Estimated GFR (Cockcroft-Gault) 28.1 34.3 Glucose Level 252 mg/dL (70-99) 216 mg/dL (70-99) Glucose (Fingerstick) 255 mg/dL (70-99) 225 mg/dL (70-99) Calcium Level 7.6 mg/dL (8.5-10.1) 7.7 mg/dL (8.5-10.1) Phosphorus Level 4.1 mg/dL (2.6-4.7) 4.3 mg/dL (2.6-4.7) White Blood Count 34.3 x10^3/uL (4.0-11.0) Red Blood Count 2.51 x10^6/uL (3.50-5.40) Hemoglobin 7.8 g/dL (12.0-15.5) Hematocrit 24.4 % (36.0-47.0) Mean Corpuscular Volume 97 fL (79-100) Mean Corpuscular Hemoglobin 31 pg (25-35) Mean Corpuscular Hemoglobin Concent 32 g/dL (31-37) Red Cell Distribution Width 15.9 % (11.5-14.5) Platelet Count 281 x10^3/uL (140-400) Neutrophils (%) (Auto) 91 % (31-73) Lymphocytes (%) (Auto) 4 % (24-48) Monocytes (%) (Auto) 3 % (0-9) Eosinophils (%) (Auto) 2 % (0-3) Basophils (%) (Auto) 0 % (0-3) Neutrophils # (Auto) 31.3 x10^3/uL (1.8-7.7) Lymphocytes # (Auto) 1.3 x10^3/uL (1.0-4.8) Monocytes # (Auto) 1.1 x10^3/uL (0.0-1.1) Eosinophils # (Auto) 0.6 x10^3/uL (0.0-0.7) Basophils # (Auto) 0.1 x10^3/uL (0.0-0.2) BUN/Creatinine Ratio 28 (6-20) Total Bilirubin 0.5 mg/dL (0.2-1.0) Aspartate Amino Transf (AST/SGOT) 34 U/L (15-37) Alanine Aminotransferase (ALT/SGPT) 18 U/L (14-59) Alkaline Phosphatase 108 U/L (46-116) Total Protein 4.5 g/dL (6.4-8.2) Albumin 1.7 g/dL (3.4-5.0) Albumin/Globulin Ratio 0.6 (1.0-1.7) Triglycerides Level 240 mg/dL (0-150) Test 07/15/19 08:00 07/15/19 09:15 07/15/19 12:15 O2 Saturation 97 % (92-99) Arterial Blood pH 7.33 (7.35-7.45) Arterial Blood pCO2 at Patient Temp 40 mmHg (35-46) Arterial Blood pO2 at Patient Temp 110 mmHg (75-108) Arterial Blood HCO3 21 mmol/L (21-28) Arterial Blood Base Excess -5 mmol/L (-3-3) FiO2 40% Sodium Level 138 mmol/L (136-145) 138 mmol/L (136-145) Potassium Level 4.3 mmol/L (3.5-5.1) 4.4 mmol/L (3.5-5.1) Chloride Level 105 mmol/L (98-107) 104 mmol/L (98-107) Carbon Dioxide Level 24 mmol/L (21-32) 24 mmol/L (21-32) Anion Gap 9 (6-14) 10 (6-14) Blood Urea Nitrogen 44 mg/dL (7-20) 45 mg/dL (7-20) Creatinine 1.7 mg/dL (0.6-1.0) 1.8 mg/dL (0.6-1.0) Estimated GFR (Cockcroft-Gault) 31.9 29.9 Glucose Level 250 mg/dL (70-99) 261 mg/dL (70-99) Calcium Level 7.8 mg/dL (8.5-10.1) 7.9 mg/dL (8.5-10.1) Magnesium Level 2.2 mg/dL (1.8-2.4) 2.1 mg/dL (1.8-2.4) Phosphorus Level 3.8 mg/dL (2.6-4.7) Problem List Problems Medical Problems: (1) Acute pancreatitis Status: Acute (2) Cholelithiasis Status: Acute Assessment/Plan pt remains critical prohibitive surgical candidate at this time and under covid precautions will remain available, but not exam pt over weekend, to save PPE DAVON SIMMS MD Jul 15, 2019 15:03
[2019-07-15] MEDS: NOREPINEPHRINE VIAL 8 MG in IV DEXTROSE 5% 250 ML IV PRN (16:07)
[2019-07-15 18:02] LABS: CALCIUM 7.8 mg/dL (8.5-10.1); CREATININE 1.5 mg/dL (0.6-1.0); GFR 36.9; MAGNESIUM 2.2 mg/dL (1.8-2.4); POTASSIUM 4.4 mmol/L (3.5-5.1)
[2019-07-15] MEDS ORDERED: TOTAL PARENTERAL NUTRITION IV SCH ×11 (22:00)
[2019-07-15] MEDS ORDERED: DEXTROSE 70% IV SCH ×11 (22:00)
[2019-07-15] MEDS ORDERED: AMINO ACID IV SCH ×11 (22:00)
[2019-07-15] MEDS ORDERED: [UNRECOGNIZED DRUG - OTHER] IV SCH ×11 (22:00)
[2019-07-16] VITALS (26 sets, daily range): BP systolic 76–133; BP diastolic 50–98
[2019-07-16] MEDS: INSULIN LISPRO 300 UNITS/3 ML VIAL. SQ SCH ×5 (00:38→23:34)
[2019-07-16 00:52] LABS: CALCIUM 7.9 mg/dL (8.5-10.1); CREATININE 1.5 mg/dL (0.6-1.0); GFR 36.9; MAGNESIUM 2.2 mg/dL (1.8-2.4); POTASSIUM 4.4 mmol/L (3.5-5.1)
[2019-07-16] MEDS: POTASSIUM CHLORIDE 20 MEQ in DIALYSIS SOLUTION BGK 0/2.5 5,000 ML IV SCH ×23 (00:59→23:35)
--- NOTE | 2019-07-16 01:25 | NUR ---
Patient's TMP started increasing ~2200, by 2300 CRRT machine alarming "High" TMP and TMP is 400's. Attempted to flush line but TMP continues to rise; called [employer], tower air traffic control specialist and notified of increased TMP even after flushing line--[employer] states she will be in to restring CRRT. AT midnight, CRRT machine continues to alarm "High" TMP and also alarming "Filter clotting. Blood returned to patient and CRRT stopped until tower air traffic control specialist can restart. CRRT restarted at 0125 without difficulty by [employer], tower air traffic control specialist. Will continue to monitor, flush line Q4-6HRS PRN, and notify Dialysis if TMP again rises
[2019-07-16] MEDS: HEPARIN for SUB-Q USE 5,000 UNIT/ML VIAL. SQ SCH (05:55)
[2019-07-16] MEDS: METOPROLOL TARTRATE 5 MG/5 ML VIAL. IVP SCH ×2 (06:00)
[2019-07-16 07:11] LABS: BASO # 0.1 x10^3/uL (0.0-0.2); BASO % 0 % (0-3); EOS # 0.4 x10^3/uL (0.0-0.7); EOS % 1 % (0-3); HEMATOCRIT 23.4 % (36.0-47.0); HEMOGLOBIN 7.6 g/dL (12.0-15.5); LYMPH # 1.9 x10^3/uL (1.0-4.8); LYMPH % 5 % (24-48); MEAN CORPUSCULAR HEMOGLOBIN 32 pg (25-35); MEAN CORPUSCULAR HGB CONC 33 g/dL (31-37); MEAN CORPUSCULAR VOLUME 98 fL (79-100); MONO # 1.2 x10^3/uL (0.0-1.1); MONO % 3 % (0-9); NEUT # 34.5 x10^3/uL (1.8-7.7); NEUT % 91 % (31-73); PLATELET COUNT 308 x10^3/uL (140-400); RED BLOOD COUNT 2.38 x10^6/uL (3.50-5.40); RED CELL DISTRIBUTION WIDTH 15.7 % (11.5-14.5); WHITE BLOOD COUNT 38.1 x10^3/uL (4.0-11.0)
[2019-07-16 07:24] LABS: CALCIUM 8.2 mg/dL (8.5-10.1); CREATININE 1.4 mg/dL (0.6-1.0); MAGNESIUM 2.3 mg/dL (1.8-2.4); POTASSIUM 4.3 mmol/L (3.5-5.1)
[2019-07-16] MEDS: PANTOPRAZOLE IV PUSH 40 MG VIAL. IVP SCH (07:35)
[2019-07-16] MEDS: CEFEPIME HCL IV Push 2 GM VIAL. IVP SCH ×2 (07:38→20:33)
[2019-07-16] MEDS: MICAFUNGIN 100 MG in IV DEXTROSE 5% 100ML 100 ML IV SCH (07:38)
[2019-07-16] MEDS: ALBUMIN HUMAN 5% 500 ML IV PRN ×2 (07:46→22:17)
--- NOTE | 2019-07-16 08:16 | RAD ---
CHEST AP ONLY History: Ventilated patient. Respiratory failure. Comparison: July 15, 2019 Findings: Bilateral interstitial and alveolar opacities, slightly decreased within the upper lobes. Small bilateral layering pleural effusions, unchanged. Low lung volumes. Unchanged heart size. Stable endotracheal tube, enteric tube, right IJ central line, left-sided central line and right PICC Impression: 1. Diffuse interstitial and alveolar opacities, slightly decreased within the upper lungs. 2. Small bilateral layering pleural effusions, unchanged. Electronically signed by: Sukhdev Sadler DO (07/16/2019 8:13 AM) [id number]
--- NOTE | 2019-07-16 09:30 | PDOC ---
Infectious Disease Note Subjective Subjective Intubated FiO2 down to 30% PEEP 8 CRRT No fevers last 24 hrs ROS ROS unobtainable Vital Sign Vital Signs Vital Signs Date Time Temp Pulse Resp B/P (MAP) Pulse Ox O2 Delivery O2 Flow Rate FiO2 07/16/19 08:06 98 Ventilator 07/16/19 08:00 98.4 107 26 113/85 (94) 98.4 Physical Exam PHYSICAL EXAM GENERAL: Orally intubated/sedated - generalizd anasarca HEENT: Mild icterus, pupils equal, ETT, NGT NECK: Supple. LUNGS: Decreased breath sounds at the bases. HEART: S1, S2, regular ABDOMEN: Distended, hypoactive BS, Rectal tube in place : Lind EXTREMITIES: Generalized edema, no cyanosis - some mottling, Rooke boots bilaterally DERMATOLOGIC: Warm and dry. No generalized rash. CENTRAL NERVOUS SYSTEM: Sedated RIJ Temp HDC, RUE-PICC & LIJ - clean Labs Lab Laboratory Tests Test 07/15/19 12:15 07/15/19 17:45 07/16/19 00:15 07/16/19 00:36 Sodium Level 138 mmol/L (136-145) 139 mmol/L (136-145) 139 mmol/L (136-145) Potassium Level 4.4 mmol/L (3.5-5.1) 4.4 mmol/L (3.5-5.1) 4.4 mmol/L (3.5-5.1) Chloride Level 104 mmol/L (98-107) 105 mmol/L (98-107) 106 mmol/L (98-107) Carbon Dioxide Level 24 mmol/L (21-32) 27 mmol/L (21-32) 26 mmol/L (21-32) Anion Gap 10 (6-14) 7 (6-14) 7 (6-14) Blood Urea Nitrogen 45 mg/dL (7-20) 41 mg/dL (7-20) 43 mg/dL (7-20) Creatinine 1.8 mg/dL (0.6-1.0) 1.5 mg/dL (0.6-1.0) 1.5 mg/dL (0.6-1.0) Estimated GFR (Cockcroft-Gault) 29.9 36.9 36.9 Glucose Level 261 mg/dL (70-99) 259 mg/dL (70-99) 258 mg/dL (70-99) Calcium Level 7.9 mg/dL (8.5-10.1) 7.8 mg/dL (8.5-10.1) 7.9 mg/dL (8.5-10.1) Phosphorus Level 3.8 mg/dL (2.6-4.7) 3.7 mg/dL (2.6-4.7) Magnesium Level 2.1 mg/dL (1.8-2.4) 2.2 mg/dL (1.8-2.4) 2.2 mg/dL (1.8-2.4) Glucose (Fingerstick) 251 mg/dL (70-99) Test 07/16/19 05:40 07/16/19 05:49 White Blood Count 38.1 x10^3/uL (4.0-11.0) Red Blood Count 2.38 x10^6/uL (3.50-5.40) Hemoglobin 7.6 g/dL (12.0-15.5) Hematocrit 23.4 % (36.0-47.0) Mean Corpuscular Volume 98 fL (79-100) Mean Corpuscular Hemoglobin 32 pg (25-35) Mean Corpuscular Hemoglobin Concent 33 g/dL (31-37) Red Cell Distribution Width 15.7 % (11.5-14.5) Platelet Count 308 x10^3/uL (140-400) Neutrophils (%) (Auto) 91 % (31-73) Lymphocytes (%) (Auto) 5 % (24-48) Monocytes (%) (Auto) 3 % (0-9) Eosinophils (%) (Auto) 1 % (0-3) Basophils (%) (Auto) 0 % (0-3) Neutrophils # (Auto) 34.5 x10^3/uL (1.8-7.7) Lymphocytes # (Auto) 1.9 x10^3/uL (1.0-4.8) Monocytes # (Auto) 1.2 x10^3/uL (0.0-1.1) Eosinophils # (Auto) 0.4 x10^3/uL (0.0-0.7) Basophils # (Auto) 0.1 x10^3/uL (0.0-0.2) Sodium Level 139 mmol/L (136-145) Potassium Level 4.3 mmol/L (3.5-5.1) Chloride Level 105 mmol/L (98-107) Carbon Dioxide Level 26 mmol/L (21-32) Anion Gap 8 (6-14) Blood Urea Nitrogen 38 mg/dL (7-20) Creatinine 1.4 mg/dL (0.6-1.0) Estimated GFR (Cockcroft-Gault) 40.0 Glucose Level 210 mg/dL (70-99) Calcium Level 8.2 mg/dL (8.5-10.1) Phosphorus Level 3.7 mg/dL (2.6-4.7) Magnesium Level 2.3 mg/dL (1.8-2.4) Glucose (Fingerstick) 195 mg/dL (70-99) CXR, 07/15 Findings: Bilateral interstitial and alveolar opacities, slightly decreased within the upper lobes. Small bilateral layering pleural effusions, unchanged. Low lung volumes. Unchanged heart size. Stable endotracheal tube, enteric tube, right IJ central line, left-sided central line and right PICC Impression: 1. Diffuse interstitial and alveolar opacities, slightly decreased within the upper lungs. 2. Small bilateral layering pleural effusions, unchanged. Micro Microbiology 07/06/19 Blood Culture - Preliminary, Resulted NO GROWTH AFTER 3 DAYS Objective Assessment Leukocytosis - increased - ? reactive - trouble with CRRT/S/p PRBCs ? intra- abdominal Fever - better - Flu neg antigen 07/13 ? reactive with pancreatitis vs ID - C- diff neg. S/p HD cath change with malfunction 07/12 - cults 07/11 neg Lung opacities, COVID-19 pending Hypotension Acute pancreatitis, early developing necrosis -U/S 07/13 reviewed JUANA,Hyperkalemia, Metabolic acidosis on CRRT - s/p RIJ temporary dialysis catheter replacement, 07/12 Anasarca - worse Acute hypoxic resp failure, intubated ? developing peripheral ischemia - better Cholelithiasis Anemia - S/p PRBC 07/13 Hypocalcemia Prediabetes HTN Plan Plan of Care Continue Dapto/cefepime (07/12), flagyle and micafungin (07/10) -Previously on Merrem, Zyvox F/u Blood cults 07/[address] ordered abd/pelvis but on CRRT will need when stable No surgical plans at this time Maintain aspiration precautions Airborne isolation till COVID-19 r/o D/w nursing Critically ill Attending Co-Sign The patient was seen and interviewed as well as examined at the bedside. The chart was reviewed. The case was discussed. Agree with the plan of care. FRANCA HOBSON APRN Jul 16, 2019 09:30 KIMMY JONES MD Jul 16, 2019 12:01
[2019-07-16 09:40] LABS: BASE EXCESS ABG -3 mmol/L (-3-3); HCO3 ABG 23 mmol/L (21-28); PCO2 ABG 43 mmHg (35-46); PO2 ABG 79 mmHg (75-108); SAT O2 ABG 93 % (92-99)
[2019-07-16 10:10] LABS: FIO2 ABG 30% VENT
[2019-07-16] MEDS: NOREPINEPHRINE VIAL 8 MG in IV DEXTROSE 5% 250 ML IV PRN (10:11)
[2019-07-16 12:02] LABS: CALCIUM 8.1 mg/dL (8.5-10.1); CREATININE 1.3 mg/dL (0.6-1.0); GFR 43.5; MAGNESIUM 2.2 mg/dL (1.8-2.4); POTASSIUM 4.4 mmol/L (3.5-5.1)
--- NOTE | 2019-07-16 12:44 | PDOC ---
SUBJECTIVE ROS Intubated OBJECTIVE Vital Signs Vital Signs Date Time Temp Pulse Resp B/P (MAP) Pulse Ox O2 Delivery O2 Flow Rate FiO2 07/16/19 08:06 98 Ventilator 07/16/19 08:00 98.4 107 26 113/85 (94) 98.4 I & 0 Intake and Output 07/16/19 07:00 Intake Total 1944 ml Output Total 790 ml Balance 1154 ml IV Total 1944 ml Output Urine Total 540 ml Gastric Drainage Total 250 ml PHYSICAL EXAM Physical Exam GENERAL: Intubated on MV HEENT: Mild icterus, Intubated NECK: Supple. LUNGS: Decreased breath sounds at the bases. HEART: S1, S2, tachycardia, 110s, ABDOMEN: Distended, + BS. Rectal tube in place : Lind + EXTREMITIES: Trace edema, no cyanosis - mottled. DERMATOLOGIC: Warm and dry. No generalized rash. CENTRAL NERVOUS SYSTEM: Intubated on MV DIAGNOSIS/ASSESSMENT Assessment & Plan JUANA - ATN, , requiring CONFIDENTIAL INVESTIGATOR, some improvement in uop intubated on 07/10 , currently on pressors initially on HD , Switched to CRRT 07/10 seen on CRRT, tolerating well (Temp HDC replaced today 05/22 nonfunctional ) Tolerating UF 100/ml /hr net Discussed with RN and Boy HyperKalemia- normal Acidosis - Bicarb Normal- on higher side , Dced IV bicarb on 07/10 Currently on TPN with bicarb HypoCalcemia- Corrected Ca normal Hypoalbuminemia- severe HypOPhos -Replace as needed Acute 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 GI, ID, and general surgery following Calculus of gallbladder with acute cholecystitis without obstruction - with secondary pancreatitis. Lap ronel is indicated, will need to await pancreatitis resolution HTN - Hypotensive, on pressors Sepsis - with acute pancreatitis as end organ dysfunction, sign of infection, zyvox, merrem Hypoxia with respiratory failure - intubated COMMENT/RELEVANT DATA Meds Current Medications Medications (Trade) Dose Ordered Sig/Yvon Start Time Stop Time Status Last Admin Dose Admin Acetaminophen (Tylenol Supp) 650 mg PRN Q6HRS PRN 07/12/19 10:30 07/12/19 10:37 650 MG Acetaminophen (Tylenol) 650 mg PRN Q6HRS PRN 07/09/19 03:36 07/14/19 07:35 650 MG Albumin Human 500 ml @ 125 mls/hr 1X ONCE 07/14/19 14:15 07/14/19 18:14 DC Albuterol Sulfate (Ventolin Neb Soln) 2.5 mg 1X ONCE 07/05/19 22:30 07/05/19 22:31 DC 07/06/19 00:56 2.5 MG Artificial Tears (Artificial Tears) 1 drop PRN Q1HR PRN 07/11/19 08:15 Atenolol (Tenormin) 100 mg DAILY 07/05/19 09:00 07/04/19 20:08 DC Benzocaine (Hurricaine One) 1 spray 1X ONCE 07/08/19 14:30 07/08/19 14:31 DC 07/08/19 16:38 1 SPRAY Calcium Carbonate/ Glycine (Tums) 500 mg PRN AFTMEALHC PRN 07/06/19 17:45 Calcium Chloride 1000 mg/Sodium Chloride 110 ml @ 220 mls/hr 1X ONCE 07/05/19 22:30 07/05/19 22:59 DC 07/05/19 22:11 220 MLS/HR Calcium Chloride 3000 mg/Sodium Chloride 1,030 ml @ 50 mls/hr [id number] 07/07/19 08:00 07/09/19 15:23 DC 07/09/19 02:17 50 MLS/HR Calcium Gluconate (Calcium Gluconate) 2,000 mg 1X ONCE 07/07/19 02:15 07/07/19 02:16 DC 07/07/19 02:19 2,000 MG Calcium Gluconate 1000 mg/Sodium Chloride 110 ml @ 220 mls/hr 1X ONCE 07/06/19 03:30 07/06/19 03:59 DC 07/06/19 03:21 220 MLS/HR Calcium Gluconate 2000 mg/Sodium Chloride 120 ml @ 220 mls/hr 1X ONCE 07/06/19 07:30 07/06/19 08:02 DC 07/06/19 09:05 220 MLS/HR Cefepime HCl (Maxipime) 2 gm Q12HR 07/13/19 09:00 07/16/19 07:38 2 GM Daptomycin 500 mg/ Sodium Chloride 50 ml @ 100 mls/hr Q48H 07/13/19 08:30 07/15/19 09:45 100 MLS/HR Dextrose (Dextrose 50%-Water Syringe) 12.5 gm PRN Q15MIN PRN 07/04/19 09:30 Digoxin (Lanoxin) 125 mcg 1X ONCE 07/07/19 18:00 07/07/19 18:01 DC 07/07/19 17:10 125 MCG Diphenhydramine HCl (Benadryl) 25 mg 1X PRN PRN 07/11/19 07:30 07/12/19 07:29 DC Etomidate (Amidate) 8 mg 1X ONCE 07/11/19 08:30 07/11/19 08:31 DC 07/11/19 08:33 8 MG Fentanyl Citrate 30 ml @ 0 mls/hr CONT PRN 07/11/19 08:15 07/16/19 08:45 2.5 MLS/HR Fentanyl Citrate (Fentanyl 2ml Vial) 100 mcg STK-MED ONCE 07/04/19 03:18 07/04/19 03:18 DC Furosemide (Lasix) 40 mg 1X ONCE 07/05/19 22:30 07/05/19 22:31 DC 07/05/19 22:12 40 MG Heparin Sodium (Porcine) (Heparin Sodium) 5,000 unit Q8HRS 07/11/19 15:00 07/16/19 05:55 5,000 UNIT Hydromorphone HCl (Dilaudid) 1 mg PRN Q3HRS PRN 07/05/19 12:00 07/11/19 05:13 1 MG Info (CONTRAST GIVEN -- Rx MONITORING) 1 each PRN DAILY PRN 07/05/19 17:00 07/07/19 16:59 DC Info (PHARMACY MONITORING -- do not chart) 1 each PRN DAILY PRN 07/11/19 07:30 Info (Tpn Per Pharmacy) 1 each PRN DAILY PRN 07/06/19 12:30 UNV Insulin Human Lispro (HumaLOG) 0-9 UNITS Q6HRS 07/04/19 09:30 07/16/19 11:48 5 UNITS Insulin Human Regular (HumuLIN R VIAL) 5 unit 1X ONCE 07/05/19 22:30 07/05/19 22:31 DC 07/05/19 22:14 5 UNIT Iohexol (Omnipaque 300 Mg/ml) 60 ml 1X ONCE 07/05/19 17:00 07/05/19 17:01 DC 07/05/19 17:20 60 ML Iohexol (Omnipaque 350 Mg/ml) 90 ml 1X ONCE 07/04/19 03:30 07/04/19 03:31 DC 07/04/19 03:25 90 ML Ketorolac Tromethamine (Toradol 30mg Vial) 30 mg 1X ONCE 07/04/19 03:00 07/04/19 03:01 DC 07/04/19 02:54 30 MG Lidocaine HCl (Buffered Lidocaine 1%) 3 ml STK-MED ONCE 07/13/19 10:00 07/15/19 13:57 DC Lidocaine HCl (Glydo (Lidocaine) Jelly) 1 ramu 1X ONCE 07/08/19 14:30 07/08/19 14:31 DC 07/08/19 16:38 1 RAMU Lidocaine HCl (Xylocaine-Mpf 1% 2ml Vial) 2 ml STK-MED ONCE 07/06/19 08:47 07/06/19 08:47 DC Linezolid/Dextrose 300 ml @ 300 mls/hr Q12HR 07/08/19 20:00 07/15/19 07:50 DC 07/14/19 21:04 300 MLS/HR Lorazepam (Ativan Inj) 1 mg PRN Q4HRS PRN 07/07/19 09:00 07/11/19 00:34 1 MG Magnesium Sulfate 100 ml @ 25 mls/hr 1X ONCE 07/07/19 13:00 07/07/19 16:59 DC 07/07/19 12:48 25 MLS/HR Meropenem 1 gm/ Sodium Chloride 100 ml @ 200 mls/hr Q8HRS 07/05/19 20:00 07/06/19 08:48 DC 07/06/19 05:45 200 MLS/HR Meropenem 500 mg/ Sodium Chloride 50 ml @ 100 mls/hr Q6HRS 07/12/19 09:00 07/13/19 07:29 DC 07/13/19 06:00 100 MLS/HR Metoprolol Tartrate (Lopressor Vial) 5 mg Q6HRS 07/05/19 10:15 07/16/19 08:48 DC 07/14/19 00:12 5 MG Metronidazole 100 ml @ 100 mls/hr Q6HRS 07/11/19 08:30 07/16/19 11:55 100 MLS/HR Micafungin Sodium 100 mg/Dextrose 100 ml @ 100 mls/hr Q24H 07/11/19 09:00 07/16/19 07:38 100 MLS/HR Midazolam HCl (Versed) 5 mg 1X ONCE 07/11/19 08:30 07/11/19 08:31 DC Midazolam HCl 50 mg/Sodium Chloride 50 ml @ 0 mls/hr CONT PRN 07/11/19 08:15 07/14/19 22:39 7 MLS/HR Morphine Sulfate (Morphine Sulfate) 2 mg PRN Q2HR PRN 07/04/19 05:00 07/05/19 14:15 DC 07/05/19 12:26 2 MG Multi-Ingred Cream/Lotion/Oil/ Oint (Artificial Tears Eye Ointment) 1 ramu PRN Q1HR PRN 07/13/19 17:30 Norepinephrine Bitartrate 8 mg/ Dextrose 258 ml @ 17.299 mls/ hr CONT PRN 07/05/19 15:30 07/16/19 10:11 18.7 MLS/HR Ondansetron HCl (Zofran) 4 mg PRN Q4HRS PRN 07/04/19 09:30 07/09/19 16:15 4 MG Pantoprazole Sodium (PROTONIX VIAL for IV PUSH) 40 mg DAILYAC 07/04/19 11:30 07/16/19 07:35 40 MG Piperacillin Sod/ Tazobactam Sod 4.5 gm/Sodium Chloride 100 ml @ 200 mls/hr 1X ONCE 07/04/19 06:00 07/04/19 06:29 DC 07/04/19 05:44 200 MLS/HR Potassium Chloride 15 meq/ Bicarbonate Dialysis Soln w/ out KCl 5,007.5 ml @ 1,000 mls/ hr Q5H1M 07/11/19 12:00 07/12/19 11:19 DC 07/12/19 11:11 1,000 MLS/HR Potassium Chloride 20 meq/ Bicarbonate Dialysis Soln w/ out KCl 5,010 ml @ 1,000 mls/hr Q5H1M 07/13/19 16:00 07/16/19 11:54 1,000 MLS/HR Potassium Chloride/Water 100 ml @ 100 mls/hr Q1H 07/12/19 11:00 07/12/19 12:59 DC 07/12/19 12:12 100 MLS/HR Potassium Phosphate 20 mmol/ Sodium Chloride 106.6667 ml @ 51.667 m... 1X ONCE 07/13/19 13:00 07/13/19 15:03 DC 07/13/19 12:51 51.667 MLS/HR Prochlorperazine Edisylate (Compazine) 10 mg PRN Q6HRS PRN 07/04/19 17:45 07/05/19 00:42 10 MG Propofol 0 ml @ As Directed STK-MED ONCE 07/11/19 07:53 07/11/19 07:53 DC Sodium Bicarbonate 50 meq/Sodium Chloride 1,050 ml @ 75 mls/hr Q14H 07/06/19 07:30 07/11/19 10:28 DC 07/10/19 21:10 75 MLS/HR Sodium Chloride (Normal Saline Flush) 10 ml 1X PRN PRN 07/09/19 08:00 07/10/19 07:59 DC Sodium Chloride 90 meq/Calcium Gluconate 10 meq/ Multivitamins 10 ml/Chromium/ Copper/Manganese/ Seleni/Zn 0.5 ml/ Total Parenteral Nutrition/Amino Acids/Dextrose/ Fat Emulsion Intravenous 1,512 ml @ 63 mls/hr TPN CONT 07/06/19 22:00 07/07/19 21:59 DC 07/06/19 22:06 63 MLS/HR Sodium Chloride 90 meq/Calcium Gluconate 10 meq/ Multivitamins 10 ml/Chromium/ Copper/Manganese/ Seleni/Zn 1 ml/ Total Parenteral Nutrition/Amino Acids/Dextrose/ Fat Emulsion Intravenous 55.005 ml @ 2.292 mls/hr TPN CONT 07/06/19 22:00 07/06/19 12:33 DC Sodium Chloride 90 meq/Magnesium Sulfate 10 meq/ Calcium Gluconate 20 meq/ Multivitamins 10 ml/Chromium/ Copper/Manganese/ Seleni/Zn 0.5 ml/ Total Parenteral Nutrition/Amino Acids/Dextrose/ Fat Emulsion Intravenous 1,512 ml @ 63 mls/hr TPN CONT 07/07/19 22:00 07/08/19 21:59 DC 07/07/19 22:25 63 MLS/HR Sodium Chloride 90 meq/Potassium Chloride 15 meq/ Potassium Phosphate 10 mmol/ Magnesium Sulfate 10 meq/Calcium Gluconate 20 meq/ Multivitamins 10 ml/Chromium/ Copper/Manganese/ Seleni/Zn 0.5 ml/ Total Parenteral Nutrition/Amino Acids/Dextrose/ Fat Emulsion Intravenous 1,400 ml @ 58.333 mls/ hr TPN CONT 07/11/19 22:00 07/12/19 21:59 DC 07/11/19 21:42 58.333 MLS/HR Sodium Chloride 90 meq/Potassium Chloride 15 meq/ Potassium Phosphate 15 mmol/ Magnesium Sulfate 10 meq/Calcium Gluconate 15 meq/ Multivitamins 10 ml/Chromium/ Copper/Manganese/ Seleni/Zn 0.5 ml/ Total Parenteral Nutrition/Amino Acids/Dextrose/ Fat Emulsion Intravenous 1,400 ml @ 58.333 mls/ hr TPN CONT 07/12/19 22:00 07/13/19 21:59 DC 07/12/19 22:17 58.333 MLS/HR Sodium Chloride 90 meq/Potassium Chloride 15 meq/ Potassium Phosphate 15 mmol/ Magnesium Sulfate 10 meq/Calcium Gluconate 20 meq/ Multivitamins 10 ml/Chromium/ Copper/Manganese/ Seleni/Zn 0.5 ml/ Total Parenteral Nutrition/Amino Acids/Dextrose/ Fat Emulsion Intravenous 1,200 ml @ 50 mls/hr TPN CONT 07/10/19 22:00 07/10/19 14:17 DC Sodium Chloride 90 meq/Potassium Chloride 15 meq/ Potassium Phosphate 18 mmol/ Magnesium Sulfate 8 meq/Calcium Gluconate 15 meq/ Multivitamins 10 ml/Chromium/ Copper/Manganese/ Seleni/Zn 0.5 ml/ Insulin Human Regular 10 unit/ Total Parenteral Nutrition/Amino Acids/Dextrose/ Fat Emulsion Intravenous 1,400 ml @ 58.333 mls/ hr TPN CONT 07/15/19 22:00 07/16/19 21:59 07/15/19 21:43 58.333 MLS/HR Sodium Chloride 90 meq/Potassium Chloride 15 meq/ Potassium Phosphate 18 mmol/ Magnesium Sulfate 8 meq/Calcium Gluconate 15 meq/ Multivitamins 10 ml/Chromium/ Copper/Manganese/ Seleni/Zn 0.5 ml/ Total Parenteral Nutrition/Amino Acids/Dextrose/ Fat Emulsion Intravenous 1,400 ml @ 58.333 mls/ hr TPN CONT 07/14/19 22:00 3/27/20 21:59 DC 07/14/19 22:00 58.333 MLS/HR Succinylcholine Chloride (Anectine) 120 mg 1X ONCE 07/11/19 08:30 07/11/19 08:31 DC 07/11/19 08:34 120 MG Lab Laboratory Tests Test 07/15/19 17:45 07/16/19 00:15 07/16/19 00:36 07/16/19 05:40 Sodium Level 139 mmol/L (136-145) 139 mmol/L (136-145) 139 mmol/L (136-145) Potassium Level 4.4 mmol/L (3.5-5.1) 4.4 mmol/L (3.5-5.1) 4.3 mmol/L (3.5-5.1) Chloride Level 105 mmol/L (98-107) 106 mmol/L (98-107) 105 mmol/L (98-107) Carbon Dioxide Level 27 mmol/L (21-32) 26 mmol/L (21-32) 26 mmol/L (21-32) Anion Gap 7 (6-14) 7 (6-14) 8 (6-14) Blood Urea Nitrogen 41 mg/dL (7-20) 43 mg/dL (7-20) 38 mg/dL (7-20) Creatinine 1.5 mg/dL (0.6-1.0) 1.5 mg/dL (0.6-1.0) 1.4 mg/dL (0.6-1.0) Estimated GFR (Cockcroft-Gault) 36.9 36.9 40.0 Glucose Level 259 mg/dL (70-99) 258 mg/dL (70-99) 210 mg/dL (70-99) Calcium Level 7.8 mg/dL (8.5-10.1) 7.9 mg/dL (8.5-10.1) 8.2 mg/dL (8.5-10.1) Magnesium Level 2.2 mg/dL (1.8-2.4) 2.2 mg/dL (1.8-2.4) 2.3 mg/dL (1.8-2.4) Phosphorus Level 3.7 mg/dL (2.6-4.7) 3.7 mg/dL (2.6-4.7) Glucose (Fingerstick) 251 mg/dL (70-99) White Blood Count 38.1 x10^3/uL (4.0-11.0) Red Blood Count 2.38 x10^6/uL (3.50-5.40) Hemoglobin 7.6 g/dL (12.0-15.5) Hematocrit 23.4 % (36.0-47.0) Mean Corpuscular Volume 98 fL (79-100) Mean Corpuscular Hemoglobin 32 pg (25-35) Mean Corpuscular Hemoglobin Concent 33 g/dL (31-37) Red Cell Distribution Width 15.7 % (11.5-14.5) Platelet Count 308 x10^3/uL (140-400) Neutrophils (%) (Auto) 91 % (31-73) Lymphocytes (%) (Auto) 5 % (24-48) Monocytes (%) (Auto) 3 % (0-9) Eosinophils (%) (Auto) 1 % (0-3) Basophils (%) (Auto) 0 % (0-3) Neutrophils # (Auto) 34.5 x10^3/uL (1.8-7.7) Lymphocytes # (Auto) 1.9 x10^3/uL (1.0-4.8) Monocytes # (Auto) 1.2 x10^3/uL (0.0-1.1) Eosinophils # (Auto) 0.4 x10^3/uL (0.0-0.7) Basophils # (Auto) 0.1 x10^3/uL (0.0-0.2) Test 07/16/19 05:49 07/16/19 08:00 07/16/19 11:30 07/16/19 11:45 Glucose (Fingerstick) 195 mg/dL (70-99) 231 mg/dL (70-99) O2 Saturation 93 % (92-99) Arterial Blood pH 7.34 (7.35-7.45) Arterial Blood pCO2 at Patient Temp 43 mmHg (35-46) Arterial Blood pO2 at Patient Temp 79 mmHg (75-108) Arterial Blood HCO3 23 mmol/L (21-28) Arterial Blood Base Excess -3 mmol/L (-3-3) FiO2 30% vent Sodium Level 139 mmol/L (136-145) Potassium Level 4.4 mmol/L (3.5-5.1) Chloride Level 105 mmol/L (98-107) Carbon Dioxide Level 28 mmol/L (21-32) Anion Gap 6 (6-14) Blood Urea Nitrogen 38 mg/dL (7-20) Creatinine 1.3 mg/dL (0.6-1.0) Estimated GFR (Cockcroft-Gault) 43.5 Glucose Level 235 mg/dL (70-99) Calcium Level 8.1 mg/dL (8.5-10.1) Phosphorus Level 3.3 mg/dL (2.6-4.7) Magnesium Level 2.2 mg/dL (1.8-2.4) Results All relevant outside records, renal labs, imaging studies, telemetry/EKG's were reviewed. Other 1. Diffuse interstitial and alveolar opacities, slightly decreased within the upper lungs. 2. Small bilateral layering pleural effusions, unchanged. VERENA KENT MD Jul 16, 2019 12:44
--- NOTE | 2019-07-16 13:36 | PDOC ---
PULMONARY PROGRESS NOTES Subjective Patient intubated on 07/10 , sedated Currently on assist control ventilation rate of 25 450 tidal volume 8 of PEEP currently undergoing CRRT Vitals Vital Signs Date Time Temp Pulse Resp B/P (MAP) Pulse Ox O2 Delivery O2 Flow Rate FiO2 07/16/19 13:00 107 27 97/71 (80) 98 Ventilator 07/16/19 08:00 98.4 98.4 HEENT: Other (nc at perrl bipap mask on neck no lad no thyromegaly) Lungs: Crackles Cardiovascular: S1, S2 Abdomen: Other (distended, diffuse pain no mass) Extremities: No Edema Skin: Warm Labs Laboratory Tests Test 07/14/19 16:00 07/14/19 23:20 07/15/19 05:50 07/15/19 05:57 Magnesium Level 2.3 mg/dL (1.8-2.4) 2.3 mg/dL (1.8-2.4) 2.1 mg/dL (1.8-2.4) VT-Jwe-M-Type Natriuretic Peptide 106 pg/mL (0-124) Sodium Level 139 mmol/L (136-145) 139 mmol/L (136-145) Potassium Level 4.1 mmol/L (3.5-5.1) 4.4 mmol/L (3.5-5.1) Chloride Level 104 mmol/L (98-107) 106 mmol/L (98-107) Carbon Dioxide Level 25 mmol/L (21-32) 25 mmol/L (21-32) Anion Gap 10 (6-14) 8 (6-14) Blood Urea Nitrogen 48 mg/dL (7-20) 44 mg/dL (7-20) Creatinine 1.9 mg/dL (0.6-1.0) 1.6 mg/dL (0.6-1.0) Estimated GFR (Cockcroft-Gault) 28.1 34.3 Glucose Level 252 mg/dL (70-99) 216 mg/dL (70-99) Glucose (Fingerstick) 255 mg/dL (70-99) 225 mg/dL (70-99) Calcium Level 7.6 mg/dL (8.5-10.1) 7.7 mg/dL (8.5-10.1) Phosphorus Level 4.1 mg/dL (2.6-4.7) 4.3 mg/dL (2.6-4.7) White Blood Count 34.3 x10^3/uL (4.0-11.0) Red Blood Count 2.51 x10^6/uL (3.50-5.40) Hemoglobin 7.8 g/dL (12.0-15.5) Hematocrit 24.4 % (36.0-47.0) Mean Corpuscular Volume 97 fL (79-100) Mean Corpuscular Hemoglobin 31 pg (25-35) Mean Corpuscular Hemoglobin Concent 32 g/dL (31-37) Red Cell Distribution Width 15.9 % (11.5-14.5) Platelet Count 281 x10^3/uL (140-400) Neutrophils (%) (Auto) 91 % (31-73) Lymphocytes (%) (Auto) 4 % (24-48) Monocytes (%) (Auto) 3 % (0-9) Eosinophils (%) (Auto) 2 % (0-3) Basophils (%) (Auto) 0 % (0-3) Neutrophils # (Auto) 31.3 x10^3/uL (1.8-7.7) Lymphocytes # (Auto) 1.3 x10^3/uL (1.0-4.8) Monocytes # (Auto) 1.1 x10^3/uL (0.0-1.1) Eosinophils # (Auto) 0.6 x10^3/uL (0.0-0.7) Basophils # (Auto) 0.1 x10^3/uL (0.0-0.2) BUN/Creatinine Ratio 28 (6-20) Total Bilirubin 0.5 mg/dL (0.2-1.0) Aspartate Amino Transf (AST/SGOT) 34 U/L (15-37) Alanine Aminotransferase (ALT/SGPT) 18 U/L (14-59) Alkaline Phosphatase 108 U/L (46-116) Total Protein 4.5 g/dL (6.4-8.2) Albumin 1.7 g/dL (3.4-5.0) Albumin/Globulin Ratio 0.6 (1.0-1.7) Triglycerides Level 240 mg/dL (0-150) Test 07/15/19 08:00 07/15/19 09:15 07/15/19 12:15 07/15/19 17:45 O2 Saturation 97 % (92-99) Arterial Blood pH 7.33 (7.35-7.45) Arterial Blood pCO2 at Patient Temp 40 mmHg (35-46) Arterial Blood pO2 at Patient Temp 110 mmHg (75-108) Arterial Blood HCO3 21 mmol/L (21-28) Arterial Blood Base Excess -5 mmol/L (-3-3) FiO2 40% Sodium Level 138 mmol/L (136-145) 138 mmol/L (136-145) 139 mmol/L (136-145) Potassium Level 4.3 mmol/L (3.5-5.1) 4.4 mmol/L (3.5-5.1) 4.4 mmol/L (3.5-5.1) Chloride Level 105 mmol/L (98-107) 104 mmol/L (98-107) 105 mmol/L (98-107) Carbon Dioxide Level 24 mmol/L (21-32) 24 mmol/L (21-32) 27 mmol/L (21-32) Anion Gap 9 (6-14) 10 (6-14) 7 (6-14) Blood Urea Nitrogen 44 mg/dL (7-20) 45 mg/dL (7-20) 41 mg/dL (7-20) Creatinine 1.7 mg/dL (0.6-1.0) 1.8 mg/dL (0.6-1.0) 1.5 mg/dL (0.6-1.0) Estimated GFR (Cockcroft-Gault) 31.9 29.9 36.9 Glucose Level 250 mg/dL (70-99) 261 mg/dL (70-99) 259 mg/dL (70-99) Calcium Level 7.8 mg/dL (8.5-10.1) 7.9 mg/dL (8.5-10.1) 7.8 mg/dL (8.5-10.1) Magnesium Level 2.2 mg/dL (1.8-2.4) 2.1 mg/dL (1.8-2.4) 2.2 mg/dL (1.8-2.4) Phosphorus Level 3.8 mg/dL (2.6-4.7) Test 3/28/20 00:15 07/16/19 00:36 07/16/19 05:40 07/16/19 05:49 Sodium Level 139 mmol/L (136-145) 139 mmol/L (136-145) Potassium Level 4.4 mmol/L (3.5-5.1) 4.3 mmol/L (3.5-5.1) Chloride Level 106 mmol/L (98-107) 105 mmol/L (98-107) Carbon Dioxide Level 26 mmol/L (21-32) 26 mmol/L (21-32) Anion Gap 7 (6-14) 8 (6-14) Blood Urea Nitrogen 43 mg/dL (7-20) 38 mg/dL (7-20) Creatinine 1.5 mg/dL (0.6-1.0) 1.4 mg/dL (0.6-1.0) Estimated GFR (Cockcroft-Gault) 36.9 40.0 Glucose Level 258 mg/dL (70-99) 210 mg/dL (70-99) Calcium Level 7.9 mg/dL (8.5-10.1) 8.2 mg/dL (8.5-10.1) Phosphorus Level 3.7 mg/dL (2.6-4.7) 3.7 mg/dL (2.6-4.7) Magnesium Level 2.2 mg/dL (1.8-2.4) 2.3 mg/dL (1.8-2.4) Glucose (Fingerstick) 251 mg/dL (70-99) 195 mg/dL (70-99) White Blood Count 38.1 x10^3/uL (4.0-11.0) Red Blood Count 2.38 x10^6/uL (3.50-5.40) Hemoglobin 7.6 g/dL (12.0-15.5) Hematocrit 23.4 % (36.0-47.0) Mean Corpuscular Volume 98 fL (79-100) Mean Corpuscular Hemoglobin 32 pg (25-35) Mean Corpuscular Hemoglobin Concent 33 g/dL (31-37) Red Cell Distribution Width 15.7 % (11.5-14.5) Platelet Count 308 x10^3/uL (140-400) Neutrophils (%) (Auto) 91 % (31-73) Lymphocytes (%) (Auto) 5 % (24-48) Monocytes (%) (Auto) 3 % (0-9) Eosinophils (%) (Auto) 1 % (0-3) Basophils (%) (Auto) 0 % (0-3) Neutrophils # (Auto) 34.5 x10^3/uL (1.8-7.7) Lymphocytes # (Auto) 1.9 x10^3/uL (1.0-4.8) Monocytes # (Auto) 1.2 x10^3/uL (0.0-1.1) Eosinophils # (Auto) 0.4 x10^3/uL (0.0-0.7) Basophils # (Auto) 0.1 x10^3/uL (0.0-0.2) Test 07/16/19 08:00 07/16/19 11:30 07/16/19 11:45 O2 Saturation 93 % (92-99) Arterial Blood pH 7.34 (7.35-7.45) Arterial Blood pCO2 at Patient Temp 43 mmHg (35-46) Arterial Blood pO2 at Patient Temp 79 mmHg (75-108) Arterial Blood HCO3 23 mmol/L (21-28) Arterial Blood Base Excess -3 mmol/L (-3-3) FiO2 30% vent Sodium Level 139 mmol/L (136-145) Potassium Level 4.4 mmol/L (3.5-5.1) Chloride Level 105 mmol/L (98-107) Carbon Dioxide Level 28 mmol/L (21-32) Anion Gap 6 (6-14) Blood Urea Nitrogen 38 mg/dL (7-20) Creatinine 1.3 mg/dL (0.6-1.0) Estimated GFR (Cockcroft-Gault) 43.5 Glucose Level 235 mg/dL (70-99) Calcium Level 8.1 mg/dL (8.5-10.1) Phosphorus Level 3.3 mg/dL (2.6-4.7) Magnesium Level 2.2 mg/dL (1.8-2.4) Glucose (Fingerstick) 231 mg/dL (70-99) Laboratory Tests Test 07/15/19 17:45 07/16/19 00:15 07/16/19 00:36 07/16/19 05:40 Sodium Level 139 mmol/L (136-145) 139 mmol/L (136-145) 139 mmol/L (136-145) Potassium Level 4.4 mmol/L (3.5-5.1) 4.4 mmol/L (3.5-5.1) 4.3 mmol/L (3.5-5.1) Chloride Level 105 mmol/L (98-107) 106 mmol/L (98-107) 105 mmol/L (98-107) Carbon Dioxide Level 27 mmol/L (21-32) 26 mmol/L (21-32) 26 mmol/L (21-32) Anion Gap 7 (6-14) 7 (6-14) 8 (6-14) Blood Urea Nitrogen 41 mg/dL (7-20) 43 mg/dL (7-20) 38 mg/dL (7-20) Creatinine 1.5 mg/dL (0.6-1.0) 1.5 mg/dL (0.6-1.0) 1.4 mg/dL (0.6-1.0) Estimated GFR (Cockcroft-Gault) 36.9 36.9 40.0 Glucose Level 259 mg/dL (70-99) 258 mg/dL (70-99) 210 mg/dL (70-99) Calcium Level 7.8 mg/dL (8.5-10.1) 7.9 mg/dL (8.5-10.1) 8.2 mg/dL (8.5-10.1) Magnesium Level 2.2 mg/dL (1.8-2.4) 2.2 mg/dL (1.8-2.4) 2.3 mg/dL (1.8-2.4) Phosphorus Level 3.7 mg/dL (2.6-4.7) 3.7 mg/dL (2.6-4.7) Glucose (Fingerstick) 251 mg/dL (70-99) White Blood Count 38.1 x10^3/uL (4.0-11.0) Red Blood Count 2.38 x10^6/uL (3.50-5.40) Hemoglobin 7.6 g/dL (12.0-15.5) Hematocrit 23.4 % (36.0-47.0) Mean Corpuscular Volume 98 fL (79-100) Mean Corpuscular Hemoglobin 32 pg (25-35) Mean Corpuscular Hemoglobin Concent 33 g/dL (31-37) Red Cell Distribution Width 15.7 % (11.5-14.5) Platelet Count 308 x10^3/uL (140-400) Neutrophils (%) (Auto) 91 % (31-73) Lymphocytes (%) (Auto) 5 % (24-48) Monocytes (%) (Auto) 3 % (0-9) Eosinophils (%) (Auto) 1 % (0-3) Basophils (%) (Auto) 0 % (0-3) Neutrophils # (Auto) 34.5 x10^3/uL (1.8-7.7) Lymphocytes # (Auto) 1.9 x10^3/uL (1.0-4.8) Monocytes # (Auto) 1.2 x10^3/uL (0.0-1.1) Eosinophils # (Auto) 0.4 x10^3/uL (0.0-0.7) Basophils # (Auto) 0.1 x10^3/uL (0.0-0.2) Test 07/16/19 05:49 07/16/19 08:00 07/16/19 11:30 07/16/19 11:45 Glucose (Fingerstick) 195 mg/dL (70-99) 231 mg/dL (70-99) O2 Saturation 93 % (92-99) Arterial Blood pH 7.34 (7.35-7.45) Arterial Blood pCO2 at Patient Temp 43 mmHg (35-46) Arterial Blood pO2 at Patient Temp 79 mmHg (75-108) Arterial Blood HCO3 23 mmol/L (21-28) Arterial Blood Base Excess -3 mmol/L (-3-3) FiO2 30% vent Sodium Level 139 mmol/L (136-145) Potassium Level 4.4 mmol/L (3.5-5.1) Chloride Level 105 mmol/L (98-107) Carbon Dioxide Level 28 mmol/L (21-32) Anion Gap 6 (6-14) Blood Urea Nitrogen 38 mg/dL (7-20) Creatinine 1.3 mg/dL (0.6-1.0) Estimated GFR (Cockcroft-Gault) 43.5 Glucose Level 235 mg/dL (70-99) Calcium Level 8.1 mg/dL (8.5-10.1) Phosphorus Level 3.3 mg/dL (2.6-4.7) Magnesium Level 2.2 mg/dL (1.8-2.4) Medications Active Scripts Medications Dose Route/Sig Max Daily Dose Days Date Category Bisoprolol Fumarate 5 Mg Tablet 10 Mg PO DAILY 07/04/19 Reported Comments Chest x-ray 07/15 review Impression: 1. Diffuse interstitial and alveolar opacities, slightly decreased within the upper lungs. 2. Small bilateral layering pleural effusions, unchanged. Impression . IMPRESSION: 1. Acute hypoxemic respiratory failure secondary to ARDS due toacute pancreatitis, sepsic shock, abdominal distention, and pneumonia.and pleural effusions. Pleural effusions secondary to abdominal process and/or general volume overload from renal failure. 2. Gallstone pancreatitis. WITH NECROSIS 3. Severe metabolic acidosis. 4. Acute kidney injury. ON CRRT 5. Acute gallstone pancreatitis. 6. Hypoalbuminemia. 7. Hypocalcemia. 8. Leukocytosis 9. Chronic anemia Plan . Overall hemodynamically stable we will continue current support Cont AC mode , 40 FIO2/ 8 PEEP. Poor prognosis/ ARDS/septic shock supportive care CRRT Repeat CT once stable Antibiotics per ID Follow surgery input, will rule out Blanca 19 prior to considering surgery Follow nephrology input Nutritional support with TPN Prognosis is extremely poor d/w RN/ HARMEET BEE MD Jul 16, 2019 13:36
--- NOTE | 2019-07-16 13:54 | PDOC ---
[facility] PROGRESS NOTE Chief Complaint Chief Complaint Respiratory failure requiring mechanical ventilation Severe Acute pancreatitis Acute kidney failure now requiring dialysis Salpingo--itis Gallstones (Calculus of gallbladder with acute cholecystitis without obstruction) HTN Leukocytosis Hypoxia Uterine fibroid Hypoxia with respiratory failure Intractable pain Intractable nausea Possible Covid 19? History of Present Illness History of Present Illness [id number] Patient seen and examined in the ICU She is mechanically ventilated Before meals/25/450/30% Also on CRRT Very critically ill Chart reviewed Discussed with RN [id number] Patient seen and examined in the ICU She is now been transferred to the Covid 19 unit so we can rule out Covid and keep her in isolation Very critically ill Intubated and ventilated Assist control 40% Chart reviewed Discussed with RN Still on CRRT Getting a chest x-ray now Very concerned about her prognosis [id number] Patient seen and examined in the ICU She is extremely critically ill Remains mechanically ventilated with assist control/25/450/40% Also on continuous renal replacement therapy Chart reviewed Discussed with RN She has TPN hanging Also on pressors [id number] Patient seen and examined in the ICU She is still requiring CRRT On the vent with assist control but her FiO2 is down to 40% from yesterday Slightly better but still very critically ill Discussed with RN Chart reviewed [id number] Patient seen and examined in the ICU She remains extremely critically ill On IV fentanyl IV Versed IV Doxy On the vent Assist-control/25/450/70% She is critically ill Discussed with RN Chart reviewed Patient is currently on CRRT as well [id number] Patient seen and examined in the ICU She had to be intubated this morning On assist-control 25/450/100% with 10 of PEEP and only satting 87% She is extremely critically ill I'm not sure if she will survive Chart reviewed Discussed with RN Ms Diaz is a 48yo F w/ PMHx HTN, prediabetes who presents the emergency room complaints of abdominal pain. Patient described off and on 3 days. She states is constant, described as a squeezing sensation in a band-like distribution. + nausea, vomiting. She denies any fever or diarrhea. Patient denies any abdominal surgical procedures. She states is worse with movements, car ride. Pain initially was upper abdomen however now pretty much generalized. Last bowel movement was 07/03/2019. Nothing makes her pain better. Patient denies any shortness of breath. She does state the pain moves into her chest. Denies any headache or visual changes. Lipase 66076, AST 401, ALT 249, Bilirubin 1.4. CT abdomen confirms pancreatic inflammation, peripancreatic fluid and inflammatory changes around the pancreas consistent with pancreatitis. Cholelithiasis and 1.4cm uterine fibroid as well as possible left salpingitis. Admitted for further care GI, General surgery, ID, Pulm consulted. 07/04: Overnight per report no urine output. Added dilaudid for pain, PICC placed per IR. Renal US negative.Seen bedside in ICU, given 2L additional NSS and albumin infusion. Still hypotensive, started on levophed. Repeat CT abdomen with necrosis. Updated her fiancee 07/05: Sats are only 87% on nasal cannula oxygen. Dialysis catheter per nephrology 07/06: She is now on BiPAP appears more ill, now on dialysis 07/07: Seen on BiPAP. Her mother and another family member are present and seemed to be good support for her. Currently on dialysis. Appears critically ill 07/08: Overnight Tmax 101.7 , still on BiPAP FiO2 40%, still on low dose Levophed gtt, TPN initiated. On dialysis Overnight still febrile. Dialysis today. She wakes up and responds to pain. No CP. Vitals/I&O Vitals/I&O: Vital Signs Date Time Temp Pulse Resp B/P (MAP) Pulse Ox O2 Delivery O2 Flow Rate FiO2 07/16/19 13:00 107 27 97/71 (80) 98 Ventilator 07/16/19 08:00 98.4 98.4 I & O 07/15/19 07/15/19 07/16/19 15:00 23:00 07:00 Intake Total 1100 ml 844 ml Output Total 200 ml 170 ml 420 ml Balance -200 ml 930 ml 424 ml Physical Exam Physical Exam: GENERAL: Orally intubated/sedated - generalizd anasarca HEENT: Mild icterus, pupils equal, ETT, NGT NECK: Supple. LUNGS: Decreased breath sounds at the bases. HEART: S1, S2, regular ABDOMEN: Distended, hypoactive BS, Rectal tube in place : Lind EXTREMITIES: Generalized edema, no cyanosis - some mottling, Rooke boots bilaterally DERMATOLOGIC: Warm and dry. No generalized rash. CENTRAL NERVOUS SYSTEM: Sedated RIJ Temp HDC, RUE-PICC & LIJ - clean General: Other (sedated ) Heart: Other (increased rate) Lungs: Crackles Abdomen: Soft, Other (distended, obese, no obvious TTP) Extremities: No edema, Other (SOME CLUBBING ) Skin: Other (mottling noted to extremities ) Labs Labs: Laboratory Tests Test 07/15/19 17:45 07/16/19 00:15 07/16/19 00:36 07/16/19 05:40 Sodium Level 139 mmol/L (136-145) 139 mmol/L (136-145) 139 mmol/L (136-145) Potassium Level 4.4 mmol/L (3.5-5.1) 4.4 mmol/L (3.5-5.1) 4.3 mmol/L (3.5-5.1) Chloride Level 105 mmol/L (98-107) 106 mmol/L (98-107) 105 mmol/L (98-107) Carbon Dioxide Level 27 mmol/L (21-32) 26 mmol/L (21-32) 26 mmol/L (21-32) Anion Gap 7 (6-14) 7 (6-14) 8 (6-14) Blood Urea Nitrogen 41 mg/dL (7-20) 43 mg/dL (7-20) 38 mg/dL (7-20) Creatinine 1.5 mg/dL (0.6-1.0) 1.5 mg/dL (0.6-1.0) 1.4 mg/dL (0.6-1.0) Estimated GFR (Cockcroft-Gault) 36.9 36.9 40.0 Glucose Level 259 mg/dL (70-99) 258 mg/dL (70-99) 210 mg/dL (70-99) Calcium Level 7.8 mg/dL (8.5-10.1) 7.9 mg/dL (8.5-10.1) 8.2 mg/dL (8.5-10.1) Magnesium Level 2.2 mg/dL (1.8-2.4) 2.2 mg/dL (1.8-2.4) 2.3 mg/dL (1.8-2.4) Phosphorus Level 3.7 mg/dL (2.6-4.7) 3.7 mg/dL (2.6-4.7) Glucose (Fingerstick) 251 mg/dL (70-99) White Blood Count 38.1 x10^3/uL (4.0-11.0) Red Blood Count 2.38 x10^6/uL (3.50-5.40) Hemoglobin 7.6 g/dL (12.0-15.5) Hematocrit 23.4 % (36.0-47.0) Mean Corpuscular Volume 98 fL (79-100) Mean Corpuscular Hemoglobin 32 pg (25-35) Mean Corpuscular Hemoglobin Concent 33 g/dL (31-37) Red Cell Distribution Width 15.7 % (11.5-14.5) Platelet Count 308 x10^3/uL (140-400) Neutrophils (%) (Auto) 91 % (31-73) Lymphocytes (%) (Auto) 5 % (24-48) Monocytes (%) (Auto) 3 % (0-9) Eosinophils (%) (Auto) 1 % (0-3) Basophils (%) (Auto) 0 % (0-3) Neutrophils # (Auto) 34.5 x10^3/uL (1.8-7.7) Lymphocytes # (Auto) 1.9 x10^3/uL (1.0-4.8) Monocytes # (Auto) 1.2 x10^3/uL (0.0-1.1) Eosinophils # (Auto) 0.4 x10^3/uL (0.0-0.7) Basophils # (Auto) 0.1 x10^3/uL (0.0-0.2) Test 07/16/19 05:49 07/16/19 08:00 07/16/19 11:30 07/16/19 11:45 Glucose (Fingerstick) 195 mg/dL (70-99) 231 mg/dL (70-99) O2 Saturation 93 % (92-99) Arterial Blood pH 7.34 (7.35-7.45) Arterial Blood pCO2 at Patient Temp 43 mmHg (35-46) Arterial Blood pO2 at Patient Temp 79 mmHg (75-108) Arterial Blood HCO3 23 mmol/L (21-28) Arterial Blood Base Excess -3 mmol/L (-3-3) FiO2 30% vent Sodium Level 139 mmol/L (136-145) Potassium Level 4.4 mmol/L (3.5-5.1) Chloride Level 105 mmol/L (98-107) Carbon Dioxide Level 28 mmol/L (21-32) Anion Gap 6 (6-14) Blood Urea Nitrogen 38 mg/dL (7-20) Creatinine 1.3 mg/dL (0.6-1.0) Estimated GFR (Cockcroft-Gault) 43.5 Glucose Level 235 mg/dL (70-99) Calcium Level 8.1 mg/dL (8.5-10.1) Phosphorus Level 3.3 mg/dL (2.6-4.7) Magnesium Level 2.2 mg/dL (1.8-2.4) Assessment and Plan Assessmemt and Plan Problems Medical Problems: (1) Acute pancreatitis Status: Acute (2) Cholelithiasis Status: Acute Respiratory failure requiring intubation Severe Acute pancreatitis Acute kidney failure now requiring dialysis Salpingo--itis Gallstones (Calculus of gallbladder with acute cholecystitis without obstruction) HTN Leukocytosis Hypoxia Uterine fibroid Hypoxia with respiratory failure Intractable pain Intractable nausea Plan Checking Covid 19 await results CRRT Mechanical ventilation Hemodialysis BiPAP ICU monitoring Trend labs especially white count and lipase levels We have consulted GI and general surgery Appreciate pulmonary assistance as well IV antibiotics IV fluids OR narcotics When necessary anti-medics Home meds if possible DVT prophylaxis Full code She is critically ill Total time 32 minutes Comment Review of Relevant I have reviewed the following items kolby (where applicable) has been applied. Medications: Current Medications Medications (Trade) Dose Ordered Sig/Yvon Route PRN Reason Start Time Stop Time Status Last Admin Dose Admin Sodium Chloride 90 meq/Potassium Chloride 15 meq/ Potassium Phosphate 18 mmol/ Magnesium Sulfate 8 meq/Calcium Gluconate 15 meq/ Multivitamins 10 ml/Chromium/ Copper/Manganese/ Seleni/Zn 0.5 ml/ Insulin Human Regular 10 unit/ Total Parenteral Nutrition/Amino Acids/Dextrose/ Fat Emulsion Intravenous 1,400 ml @ 58.333 mls/ hr TPN CONT IV 07/15/19 22:00 07/16/19 21:59 07/15/19 21:43 Hemodynamically unstable?: Yes Is patient in severe pain?: Yes Is NPO status required?: Yes BEBO KIRBY III DO Jul 16, 2019 13:54
--- NOTE | 2019-07-16 14:39 | PDOC ---
PROGRESS NOTES Assessment Assessment IMPRESSION: Respiratory failure. Seizure. Metabolic encephalopathy. Fever 102.7 degree. Metabolic acidosis. Diffuse pulmonary infiltrate. Pleural effusion. Pancreatitis Gallstone. Leukocytosis. Electrolytes imbalances. Hyperglycemia. DM. HTN. HLD. Anemia. Obesity. RECOMMENDATIONS/PLAN: Continue life support in ICU at the present time. Yudi if has further seizures. Lab: see orders, including pending Covid-19 results. Treat medical diseases. EEG last week: No seizure activity. Past Medical History Cardiovascular: HTN, Hyperlipidemia Endocrine: Diabetes Family History Unobtainable. Social HistoryU not obtainable Allergies Coded Allergies: codeine (Verified Allergy, Intermediate, rash, 07/04/19) ROS Unobtainable in unresponsive state. PHYSICAL EXAMINATION: General appearance in sub acute distress. HEENT: Normocephalic and nontraumatic. Eyes, nose, ears, and throat are unremarkable. Neck is supple. No lymphadenopathy. Cardiovascular: S1, S2. Pulmonary: On vent.. Abdomen: Bowel sounds are weak. Extremities: No rash, lesions. NEUROLOGICAL EXAMINATION: Unresponsive. On vent. Not oriented to time, place and person. PERRL. EOMI not elicited, CN: no acute focal findings. Muscle tone: within normal. Muscle strength: No movements to stimuli. DTR: 0-1 Plantar reflex: No response bilaterally Gait: not able to walk. Sensory exam: no response to stimuli.. Not able to access cerebellar signs. F-T-N test not performed due to unresponsiveness Objective Objective Vital Signs Date Time Temp Pulse Resp B/P (MAP) Pulse Ox O2 Delivery O2 Flow Rate FiO2 07/16/19 13:00 107 27 97/71 (80) 98 Ventilator 07/16/19 08:00 98.4 98.4 Intake and Output 07/16/19 07:00 Intake Total 1944 ml Output Total 790 ml Balance 1154 ml IV Total 1944 ml Output Urine Total 540 ml Gastric Drainage Total 250 ml Vitals Signs Vitals VS - Last 72 Hours, by Label Date Time Temp Pulse Resp B/P (MAP) Pulse Ox O2 Delivery O2 Flow Rate FiO2 07/16/19 13:00 107 27 97/71 (80) 98 Ventilator 07/16/19 12:45 98 Ventilator 07/16/19 12:00 115 25 111/62 (78) 98 Ventilator 07/16/19 12:00 Mechanical Ventilator 07/16/19 11:00 104 27 111/69 (83) 98 Ventilator 07/16/19 10:00 105 26 119/84 (96) 98 Ventilator 07/16/19 09:00 108 26 133/58 (83) 98 Ventilator 07/16/19 08:06 98 Ventilator 07/16/19 08:00 Mechanical Ventilator 07/16/19 08:00 98.4 107 26 113/85 (94) 94 Ventilator 98.4 07/16/19 07:00 103 25 78/61 (67) 98 Ventilator 07/16/19 06:00 104 25 103/56 (72) 98 Ventilator 07/16/19 05:00 107 25 126/73 (90) 100 Ventilator 07/16/19 04:00 98.5 109 25 97/59 (72) 100 Ventilator 98.5 07/16/19 04:00 Mechanical Ventilator 07/16/19 03:50 106 25 114/65 (81) 100 Ventilator 07/16/19 03:35 109 25 85/78 (80) 100 Ventilator 07/16/19 03:34 98 Ventilator 07/16/19 03:15 114 25 123/89 (100) 100 Ventilator 07/16/19 03:00 118 25 76/62 (67) 99 Ventilator 07/16/19 02:00 122 25 108/59 (75) 99 Ventilator 07/16/19 01:00 111 25 101/50 (67) 99 Ventilator 07/15/19 23:59 98.9 106 25 109/77 (88) 97 Ventilator 98.9 07/15/19 23:59 Mechanical Ventilator 07/15/19 23:20 98 Ventilator 07/15/19 23:00 106 25 97/74 (82) 99 Ventilator 07/15/19 23:00 25 99 Ventilator 07/15/19 22:33 25 96 07/15/19 22:00 109 25 94/70 (78) 96 Ventilator 07/15/19 21:00 103 25 96/65 (75) 100 Ventilator 07/15/19 20:00 98.4 108 25 93/73 (80) 97 Ventilator 98.4 07/15/19 20:00 Mechanical Ventilator 07/15/19 19:40 98 Ventilator 07/15/19 19:00 100 25 102/66 (78) 99 Ventilator 07/15/19 17:00 106 25 86/60 (69) 100 Ventilator 07/15/19 16:23 100 Ventilator 07/15/19 16:00 98.0 100 25 130/78 (95) 100 Ventilator 98.0 07/15/19 16:00 Mechanical Ventilator 07/15/19 15:00 103 25 133/52 (79) 100 Ventilator 07/15/19 14:23 102 26 109/62 (78) 100 Ventilator 07/15/19 14:00 104 25 100 Ventilator 07/15/19 13:00 114 25 106/75 (85) 100 Ventilator 07/15/19 12:00 Mechanical Ventilator 07/15/19 12:00 99.4 113 25 86/55 (65) 100 Ventilator 99.4 07/15/19 11:00 115 25 105/62 (76) 100 Ventilator 07/15/19 10:08 100 Ventilator 07/15/19 10:00 122 26 82/69 (73) 100 Ventilator 07/15/19 09:00 124 26 121/92 (102) 100 Ventilator 07/15/19 08:00 124 26 108/57 (74) 100 Ventilator 07/15/19 08:00 Mechanical Ventilator 07/15/19 07:00 98.4 102 27 122/83 (96) 100 Ventilator 98.4 Laboratory Laboratory Laboratory Tests Test 07/15/19 17:45 07/16/19 00:15 07/16/19 00:36 07/16/19 05:40 Sodium Level 139 mmol/L (136-145) 139 mmol/L (136-145) 139 mmol/L (136-145) Potassium Level 4.4 mmol/L (3.5-5.1) 4.4 mmol/L (3.5-5.1) 4.3 mmol/L (3.5-5.1) Chloride Level 105 mmol/L (98-107) 106 mmol/L (98-107) 105 mmol/L (98-107) Carbon Dioxide Level 27 mmol/L (21-32) 26 mmol/L (21-32) 26 mmol/L (21-32) Anion Gap 7 (6-14) 7 (6-14) 8 (6-14) Blood Urea Nitrogen 41 mg/dL (7-20) 43 mg/dL (7-20) 38 mg/dL (7-20) Creatinine 1.5 mg/dL (0.6-1.0) 1.5 mg/dL (0.6-1.0) 1.4 mg/dL (0.6-1.0) Estimated GFR (Cockcroft-Gault) 36.9 36.9 40.0 Glucose Level 259 mg/dL (70-99) 258 mg/dL (70-99) 210 mg/dL (70-99) Calcium Level 7.8 mg/dL (8.5-10.1) 7.9 mg/dL (8.5-10.1) 8.2 mg/dL (8.5-10.1) Magnesium Level 2.2 mg/dL (1.8-2.4) 2.2 mg/dL (1.8-2.4) 2.3 mg/dL (1.8-2.4) Phosphorus Level 3.7 mg/dL (2.6-4.7) 3.7 mg/dL (2.6-4.7) Glucose (Fingerstick) 251 mg/dL (70-99) White Blood Count 38.1 x10^3/uL (4.0-11.0) Red Blood Count 2.38 x10^6/uL (3.50-5.40) Hemoglobin 7.6 g/dL (12.0-15.5) Hematocrit 23.4 % (36.0-47.0) Mean Corpuscular Volume 98 fL (79-100) Mean Corpuscular Hemoglobin 32 pg (25-35) Mean Corpuscular Hemoglobin Concent 33 g/dL (31-37) Red Cell Distribution Width 15.7 % (11.5-14.5) Platelet Count 308 x10^3/uL (140-400) Neutrophils (%) (Auto) 91 % (31-73) Lymphocytes (%) (Auto) 5 % (24-48) Monocytes (%) (Auto) 3 % (0-9) Eosinophils (%) (Auto) 1 % (0-3) Basophils (%) (Auto) 0 % (0-3) Neutrophils # (Auto) 34.5 x10^3/uL (1.8-7.7) Lymphocytes # (Auto) 1.9 x10^3/uL (1.0-4.8) Monocytes # (Auto) 1.2 x10^3/uL (0.0-1.1) Eosinophils # (Auto) 0.4 x10^3/uL (0.0-0.7) Basophils # (Auto) 0.1 x10^3/uL (0.0-0.2) Test 07/16/19 05:49 07/16/19 08:00 07/16/19 11:30 07/16/19 11:45 Glucose (Fingerstick) 195 mg/dL (70-99) 231 mg/dL (70-99) O2 Saturation 93 % (92-99) Arterial Blood pH 7.34 (7.35-7.45) Arterial Blood pCO2 at Patient Temp 43 mmHg (35-46) Arterial Blood pO2 at Patient Temp 79 mmHg (75-108) Arterial Blood HCO3 23 mmol/L (21-28) Arterial Blood Base Excess -3 mmol/L (-3-3) FiO2 30% vent Sodium Level 139 mmol/L (136-145) Potassium Level 4.4 mmol/L (3.5-5.1) Chloride Level 105 mmol/L (98-107) Carbon Dioxide Level 28 mmol/L (21-32) Anion Gap 6 (6-14) Blood Urea Nitrogen 38 mg/dL (7-20) Creatinine 1.3 mg/dL (0.6-1.0) Estimated GFR (Cockcroft-Gault) 43.5 Glucose Level 235 mg/dL (70-99) Calcium Level 8.1 mg/dL (8.5-10.1) Phosphorus Level 3.3 mg/dL (2.6-4.7) Magnesium Level 2.2 mg/dL (1.8-2.4) Microbiology 07/12/19 Blood Culture - Preliminary, Resulted NO GROWTH AFTER 4 DAYS Medication Medications Current Medications Midazolam HCl 100 mg/Sodium Chloride 100 ml @ 7 mls/hr CONT PRN IV SEE PROTOCOL ; Start 07/16/19 at 16:00 Sodium Chloride 90 meq/Potassium Chloride 15 meq/ Potassium Phosphate 18 mmol/ Magnesium Sulfate 8 meq/Calcium Gluconate 15 meq/ Multivitamins 10 ml/Chromium/ Copper/Manganese/ Seleni/Zn 0.5 ml/ Insulin Human Regular 10 unit/ Total Parenteral Nutrition/Amino Acids/Dextrose/ Fat Emulsion Intravenous 1,400 ml @ 58.333 mls/ hr TPN CONT IV Last administered on 07/15/19at 21:43; Start 07/15/19 at 22:00; Stop 07/16/19 at 21:59 Comment Review of Relevant I have reviewed the following items kolby (where applicable) has been applied. ZANDER ZUÑIGA MD Jul 16, 2019 14:39
[2019-07-16] MEDS: TPN PER PHARMACY MC PRN (14:47)
--- NOTE | 2019-07-16 14:48 | NUR ---
Pharmacy TPN Dosing Note S: SCOTT AVILA is a 48 year old F Currently receiving Central Continuous TPN started 07/06/19 B:Pertinent PMH: Necrotizing pancreatitis Height: 5 feet, 8 inches Weight: 109.5 kg Current diet: NPO LABS: Sodium: 139 Potassium: 4.4 Chloride: 105 Calcium: 7.8 Corrected Calcium: 9.48 Magnesium: 2.2 CO2: 24 SCr: 1.3 Glucose: 231-235 Albumin: 1.9 AST: 37 ALT: 16 TPN FORMULA: TPN TYPE: Central Continuous AMINO ACIDS: 125 gm DEXTROSE: 195 gm LIPIDS: 40 gm SODIUM CHLORIDE: 90 mEq SODIUM ACETATE: -- mEq SODIUM PHOSPHATE: -- mmol POTASSIUM CHLORIDE: 15 mEq POTASSIUM ACETATE: -- mEq POTASSIUM PHOSPHATE: 18 mmol MAGNESIUM: 8 mEq CALCIUM: 15 mEq INSULIN: 15 units MULTIPLE VITAMIN: 10 ml TRACE ELEMENTS: 0.5 ml(s) TPN PLAN: Labs WNL; BG still high, increase insulin in TPN from 10 to 15 units. Labs per nephrology for CRRT monitoring. R: Continue TPN ABOVE. Will monitor electrolytes, glucose, and tolerance to TPN. CHRISTIAN VALLEJO [facility], 07/16/19 1890
--- NOTE | 2019-07-16 16:20 | NUR ---
TPM pressures on CRRT machine elevated to 320 and machine alarmed. Flushed system x200 cc NS but still unable to run; attempted second flush of 100 cc and continued to alarm. Lizzy LE semiconductor wafers tester dialysis notified.
[2019-07-16 18:05] LABS: CREATININE 1.4 mg/dL (0.6-1.0); MAGNESIUM 2.1 mg/dL (1.8-2.4); POTASSIUM 4.6 mmol/L (3.5-5.1)
--- NOTE | 2019-07-16 18:10 | NUR ---
Lizzy LEsecurities clerk nurse here to restring the CRRT machine so patient can resume CRRT.
[2019-07-16] MEDS ORDERED: DEXTROSE 70% IV SCH ×11 (22:00)
[2019-07-16] MEDS ORDERED: TOTAL PARENTERAL NUTRITION IV SCH ×11 (22:00)
[2019-07-16] MEDS ORDERED: [UNRECOGNIZED DRUG - OTHER] IV SCH ×11 (22:00)
[2019-07-16] MEDS ORDERED: AMINO ACID IV SCH ×11 (22:00)
[2019-07-17] VITALS (28 sets, daily range): BP systolic 90–141; BP diastolic 50–94
[2019-07-17 00:46] LABS: CALCIUM 8.1 mg/dL (8.5-10.1); CREATININE 1.3 mg/dL (0.6-1.0); GFR 43.5; MAGNESIUM 2.3 mg/dL (1.8-2.4); POTASSIUM 4.3 mmol/L (3.5-5.1)
[2019-07-17] MEDS: NOREPINEPHRINE VIAL 8 MG in IV DEXTROSE 5% 250 ML IV PRN (03:38)
[2019-07-17] MEDS: POTASSIUM CHLORIDE 20 MEQ in DIALYSIS SOLUTION BGK 0/2.5 5,000 ML IV SCH ×7 (05:28→16:55)
[2019-07-17] MEDS: INSULIN LISPRO 300 UNITS/3 ML VIAL. SQ SCH ×3 (06:06→17:46)
[2019-07-17 06:12] LABS: CALCIUM 8.2 mg/dL (8.5-10.1); CREATININE 1.3 mg/dL (0.6-1.0); GFR 43.5; MAGNESIUM 2.3 mg/dL (1.8-2.4); POTASSIUM 4.6 mmol/L (3.5-5.1)
[2019-07-17] MEDS: DAPTOmycin (GENERIC) IVPB 500 MG in IV NORMAL SALINE 50ML 50 ML IV SCH (08:10)
[2019-07-17] MEDS: PANTOPRAZOLE IV PUSH 40 MG VIAL. IVP SCH (08:19)
--- NOTE | 2019-07-17 08:19 | PDOC ---
Infectious Disease Note Subjective Subjective Intubated FiO2 30% No fevers last 24 hrs ROS ROS unobtainable Vital Sign Vital Signs Vital Signs Date Time Temp Pulse Resp B/P (MAP) Pulse Ox O2 Delivery O2 Flow Rate FiO2 07/17/19 08:12 96 Ventilator 07/17/19 06:00 112 25 103/53 (70) 07/17/19 04:00 98.4 98.4 Physical Exam PHYSICAL EXAM GENERAL: Orally intubated/sedated - generalizd anasarca HEENT: Mild icterus, pupils equal, ETT, NGT NECK: Supple. LUNGS: Decreased breath sounds at the bases. HEART: S1, S2, regular ABDOMEN: Distended, hypoactive BS, Rectal tube in place : Lind EXTREMITIES: Generalized edema, no cyanosis - some mottling, Rooke boots bilaterally DERMATOLOGIC: Warm and dry. No generalized rash. CENTRAL NERVOUS SYSTEM: Sedated RIJ Temp HDC, RUE-PICC & LIJ - clean Labs Lab Laboratory Tests Test 07/16/19 11:30 07/16/19 11:45 07/16/19 17:47 07/16/19 17:48 Sodium Level 139 mmol/L (136-145) 138 mmol/L (136-145) Potassium Level 4.4 mmol/L (3.5-5.1) 4.6 mmol/L (3.5-5.1) Chloride Level 105 mmol/L (98-107) 105 mmol/L (98-107) Carbon Dioxide Level 28 mmol/L (21-32) 27 mmol/L (21-32) Anion Gap 6 (6-14) 6 (6-14) Blood Urea Nitrogen 38 mg/dL (7-20) 41 mg/dL (7-20) Creatinine 1.3 mg/dL (0.6-1.0) 1.4 mg/dL (0.6-1.0) Estimated GFR (Cockcroft-Gault) 43.5 40.0 Glucose Level 235 mg/dL (70-99) 233 mg/dL (70-99) Calcium Level 8.1 mg/dL (8.5-10.1) 8.0 mg/dL (8.5-10.1) Phosphorus Level 3.3 mg/dL (2.6-4.7) 3.6 mg/dL (2.6-4.7) Magnesium Level 2.2 mg/dL (1.8-2.4) 2.1 mg/dL (1.8-2.4) Glucose (Fingerstick) 231 mg/dL (70-99) 231 mg/dL (70-99) Test 07/16/19 23:30 07/17/19 05:40 07/17/19 05:41 Sodium Level 138 mmol/L (136-145) 138 mmol/L (136-145) Potassium Level 4.3 mmol/L (3.5-5.1) 4.6 mmol/L (3.5-5.1) Chloride Level 105 mmol/L (98-107) 105 mmol/L (98-107) Carbon Dioxide Level 26 mmol/L (21-32) 28 mmol/L (21-32) Anion Gap 7 (6-14) 5 (6-14) Blood Urea Nitrogen 38 mg/dL (7-20) 36 mg/dL (7-20) Creatinine 1.3 mg/dL (0.6-1.0) 1.3 mg/dL (0.6-1.0) Estimated GFR (Cockcroft-Gault) 43.5 43.5 Glucose Level 217 mg/dL (70-99) 202 mg/dL (70-99) Glucose (Fingerstick) 199 mg/dL (70-99) 189 mg/dL (70-99) Calcium Level 8.1 mg/dL (8.5-10.1) 8.2 mg/dL (8.5-10.1) Phosphorus Level 3.3 mg/dL (2.6-4.7) 3.5 mg/dL (2.6-4.7) Magnesium Level 2.3 mg/dL (1.8-2.4) 2.3 mg/dL (1.8-2.4) Micro Microbiology 07/06/19 Blood Culture - Preliminary, Resulted NO GROWTH AFTER 3 DAYS Objective Assessment Leukocytosis - increased - ? reactive - trouble with CRRT/S/p PRBCs ? intra- abdominal Fever - better - Flu neg antigen 07/13 ? reactive with pancreatitis vs ID - C-di ff neg. S/p HD cath change with malfunction 07/12 - cults 07/11 neg Lung opacities, COVID-19 neg Hypotension Acute pancreatitis, early developing necrosis -U/S 07/13 reviewed JUANA,Hyperkalemia, Metabolic acidosis on CRRT - s/p RIJ temporary dialysis catheter replacement, 07/12 Anasarca - worse Acute hypoxic resp failure, intubated ? developing peripheral ischemia - better Cholelithiasis Anemia - S/p PRBC 07/13 Hypocalcemia Prediabetes HTN Plan Plan of Care Continue Dapto/cefepime (07/12), Flagyl and micafungin (07/10) -Previously on Merrem, Zyvox F/u Blood cults 07/[address] ordered abd/pelvis but on CRRT will need when stable No surgical plans at this time Maintain aspiration precautions Airborne isolation d/c'd. COVID-19 neg Repeat CBC D/w nursing Critically ill Attending Co-Sign The patient was seen and interviewed as well as examined at the bedside. The chart was reviewed. The case was discussed. Agree with the plan of care. FRANCA HOBSON APRN Jul 17, 2019 08:19 KIMMY JONES MD Jul 17, 2019 12:02
[2019-07-17 08:35] LABS: BASO # 0.2 x10^3/uL (0.0-0.2); BASO % 1 % (0-3); EOS # 0.5 x10^3/uL (0.0-0.7); EOS % 1 % (0-3); LYMPH # 1.9 x10^3/uL (1.0-4.8); LYMPH % 5 % (24-48); MEAN CORPUSCULAR HEMOGLOBIN 32 pg (25-35); MEAN CORPUSCULAR HGB CONC 33 g/dL (31-37); MEAN CORPUSCULAR VOLUME 99 fL (79-100); MONO # 1.4 x10^3/uL (0.0-1.1); MONO % 4 % (0-9); NEUT # 34.7 x10^3/uL (1.8-7.7); NEUT % 90 % (31-73); PLATELET COUNT 319 x10^3/uL (140-400); RED CELL DISTRIBUTION WIDTH 15.7 % (11.5-14.5); WHITE BLOOD COUNT 38.7 x10^3/uL (4.0-11.0)
[2019-07-17 09:00] LABS: HEMATOCRIT 20.7 % (36.0-47.0); HEMOGLOBIN 6.8 g/dL (12.0-15.5)
--- NOTE | 2019-07-17 09:00 | PDOC ---
PULMONARY PROGRESS NOTES Subjective No significant change from yesterday Patient intubated on 07/10 , sedated Currently on assist control ventilation rate of 25 450 tidal volume 8 of PEEP currently undergoing CRRT Vitals Vital Signs Date Time Temp Pulse Resp B/P (MAP) Pulse Ox O2 Delivery O2 Flow Rate FiO2 07/17/19 08:12 96 Ventilator 07/17/19 06:00 112 25 103/53 (70) 07/17/19 04:00 98.4 98.4 HEENT: Other (nc at perrl bipap mask on neck no lad no thyromegaly) Lungs: Crackles Cardiovascular: S1, S2 Abdomen: Other (distended, diffuse pain no mass) Extremities: No Edema Skin: Warm Labs Laboratory Tests Test 07/15/19 09:15 07/15/19 12:15 07/15/19 17:45 07/16/19 00:15 Sodium Level 138 mmol/L (136-145) 138 mmol/L (136-145) 139 mmol/L (136-145) 139 mmol/L (136-145) Potassium Level 4.3 mmol/L (3.5-5.1) 4.4 mmol/L (3.5-5.1) 4.4 mmol/L (3.5-5.1) 4.4 mmol/L (3.5-5.1) Chloride Level 105 mmol/L (98-107) 104 mmol/L (98-107) 105 mmol/L (98-107) 106 mmol/L (98-107) Carbon Dioxide Level 24 mmol/L (21-32) 24 mmol/L (21-32) 27 mmol/L (21-32) 26 mmol/L (21-32) Anion Gap 9 (6-14) 10 (6-14) 7 (6-14) 7 (6-14) Blood Urea Nitrogen 44 mg/dL (7-20) 45 mg/dL (7-20) 41 mg/dL (7-20) 43 mg/dL (7-20) Creatinine 1.7 mg/dL (0.6-1.0) 1.8 mg/dL (0.6-1.0) 1.5 mg/dL (0.6-1.0) 1.5 mg/dL (0.6-1.0) Estimated GFR (Cockcroft-Gault) 31.9 29.9 36.9 36.9 Glucose Level 250 mg/dL (70-99) 261 mg/dL (70-99) 259 mg/dL (70-99) 258 mg/dL (70-99) Calcium Level 7.8 mg/dL (8.5-10.1) 7.9 mg/dL (8.5-10.1) 7.8 mg/dL (8.5-10.1) 7.9 mg/dL (8.5-10.1) Magnesium Level 2.2 mg/dL (1.8-2.4) 2.1 mg/dL (1.8-2.4) 2.2 mg/dL (1.8-2.4) 2.2 mg/dL (1.8-2.4) Phosphorus Level 3.8 mg/dL (2.6-4.7) 3.7 mg/dL (2.6-4.7) Test 07/16/19 00:36 07/16/19 05:40 07/16/19 05:49 07/16/19 08:00 Glucose (Fingerstick) 251 mg/dL (70-99) 195 mg/dL (70-99) White Blood Count 38.1 x10^3/uL (4.0-11.0) Red Blood Count 2.38 x10^6/uL (3.50-5.40) Hemoglobin 7.6 g/dL (12.0-15.5) Hematocrit 23.4 % (36.0-47.0) Mean Corpuscular Volume 98 fL (79-100) Mean Corpuscular Hemoglobin 32 pg (25-35) Mean Corpuscular Hemoglobin Concent 33 g/dL (31-37) Red Cell Distribution Width 15.7 % (11.5-14.5) Platelet Count 308 x10^3/uL (140-400) Neutrophils (%) (Auto) 91 % (31-73) Lymphocytes (%) (Auto) 5 % (24-48) Monocytes (%) (Auto) 3 % (0-9) Eosinophils (%) (Auto) 1 % (0-3) Basophils (%) (Auto) 0 % (0-3) Neutrophils # (Auto) 34.5 x10^3/uL (1.8-7.7) Lymphocytes # (Auto) 1.9 x10^3/uL (1.0-4.8) Monocytes # (Auto) 1.2 x10^3/uL (0.0-1.1) Eosinophils # (Auto) 0.4 x10^3/uL (0.0-0.7) Basophils # (Auto) 0.1 x10^3/uL (0.0-0.2) Sodium Level 139 mmol/L (136-145) Potassium Level 4.3 mmol/L (3.5-5.1) Chloride Level 105 mmol/L (98-107) Carbon Dioxide Level 26 mmol/L (21-32) Anion Gap 8 (6-14) Blood Urea Nitrogen 38 mg/dL (7-20) Creatinine 1.4 mg/dL (0.6-1.0) Estimated GFR (Cockcroft-Gault) 40.0 Glucose Level 210 mg/dL (70-99) Calcium Level 8.2 mg/dL (8.5-10.1) Phosphorus Level 3.7 mg/dL (2.6-4.7) Magnesium Level 2.3 mg/dL (1.8-2.4) O2 Saturation 93 % (92-99) Arterial Blood pH 7.34 (7.35-7.45) Arterial Blood pCO2 at Patient Temp 43 mmHg (35-46) Arterial Blood pO2 at Patient Temp 79 mmHg (75-108) Arterial Blood HCO3 23 mmol/L (21-28) Arterial Blood Base Excess -3 mmol/L (-3-3) FiO2 30% vent Test 07/16/19 11:30 07/16/19 11:45 07/16/19 17:47 07/16/19 17:48 Sodium Level 139 mmol/L (136-145) 138 mmol/L (136-145) Potassium Level 4.4 mmol/L (3.5-5.1) 4.6 mmol/L (3.5-5.1) Chloride Level 105 mmol/L (98-107) 105 mmol/L (98-107) Carbon Dioxide Level 28 mmol/L (21-32) 27 mmol/L (21-32) Anion Gap 6 (6-14) 6 (6-14) Blood Urea Nitrogen 38 mg/dL (7-20) 41 mg/dL (7-20) Creatinine 1.3 mg/dL (0.6-1.0) 1.4 mg/dL (0.6-1.0) Estimated GFR (Cockcroft-Gault) 43.5 40.0 Glucose Level 235 mg/dL (70-99) 233 mg/dL (70-99) Calcium Level 8.1 mg/dL (8.5-10.1) 8.0 mg/dL (8.5-10.1) Phosphorus Level 3.3 mg/dL (2.6-4.7) 3.6 mg/dL (2.6-4.7) Magnesium Level 2.2 mg/dL (1.8-2.4) 2.1 mg/dL (1.8-2.4) Glucose (Fingerstick) 231 mg/dL (70-99) 231 mg/dL (70-99) Test 07/16/19 23:30 07/17/19 05:40 07/17/19 05:41 Sodium Level 138 mmol/L (136-145) 138 mmol/L (136-145) Potassium Level 4.3 mmol/L (3.5-5.1) 4.6 mmol/L (3.5-5.1) Chloride Level 105 mmol/L (98-107) 105 mmol/L (98-107) Carbon Dioxide Level 26 mmol/L (21-32) 28 mmol/L (21-32) Anion Gap 7 (6-14) 5 (6-14) Blood Urea Nitrogen 38 mg/dL (7-20) 36 mg/dL (7-20) Creatinine 1.3 mg/dL (0.6-1.0) 1.3 mg/dL (0.6-1.0) Estimated GFR (Cockcroft-Gault) 43.5 43.5 Glucose Level 217 mg/dL (70-99) 202 mg/dL (70-99) Glucose (Fingerstick) 199 mg/dL (70-99) 189 mg/dL (70-99) Calcium Level 8.1 mg/dL (8.5-10.1) 8.2 mg/dL (8.5-10.1) Phosphorus Level 3.3 mg/dL (2.6-4.7) 3.5 mg/dL (2.6-4.7) Magnesium Level 2.3 mg/dL (1.8-2.4) 2.3 mg/dL (1.8-2.4) Laboratory Tests Test 07/16/19 11:30 07/16/19 11:45 07/16/19 17:47 07/16/19 17:48 Sodium Level 139 mmol/L (136-145) 138 mmol/L (136-145) Potassium Level 4.4 mmol/L (3.5-5.1) 4.6 mmol/L (3.5-5.1) Chloride Level 105 mmol/L (98-107) 105 mmol/L (98-107) Carbon Dioxide Level 28 mmol/L (21-32) 27 mmol/L (21-32) Anion Gap 6 (6-14) 6 (6-14) Blood Urea Nitrogen 38 mg/dL (7-20) 41 mg/dL (7-20) Creatinine 1.3 mg/dL (0.6-1.0) 1.4 mg/dL (0.6-1.0) Estimated GFR (Cockcroft-Gault) 43.5 40.0 Glucose Level 235 mg/dL (70-99) 233 mg/dL (70-99) Calcium Level 8.1 mg/dL (8.5-10.1) 8.0 mg/dL (8.5-10.1) Phosphorus Level 3.3 mg/dL (2.6-4.7) 3.6 mg/dL (2.6-4.7) Magnesium Level 2.2 mg/dL (1.8-2.4) 2.1 mg/dL (1.8-2.4) Glucose (Fingerstick) 231 mg/dL (70-99) 231 mg/dL (70-99) Test 07/16/19 23:30 07/17/19 05:40 07/17/19 05:41 Sodium Level 138 mmol/L (136-145) 138 mmol/L (136-145) Potassium Level 4.3 mmol/L (3.5-5.1) 4.6 mmol/L (3.5-5.1) Chloride Level 105 mmol/L (98-107) 105 mmol/L (98-107) Carbon Dioxide Level 26 mmol/L (21-32) 28 mmol/L (21-32) Anion Gap 7 (6-14) 5 (6-14) Blood Urea Nitrogen 38 mg/dL (7-20) 36 mg/dL (7-20) Creatinine 1.3 mg/dL (0.6-1.0) 1.3 mg/dL (0.6-1.0) Estimated GFR (Cockcroft-Gault) 43.5 43.5 Glucose Level 217 mg/dL (70-99) 202 mg/dL (70-99) Glucose (Fingerstick) 199 mg/dL (70-99) 189 mg/dL (70-99) Calcium Level 8.1 mg/dL (8.5-10.1) 8.2 mg/dL (8.5-10.1) Phosphorus Level 3.3 mg/dL (2.6-4.7) 3.5 mg/dL (2.6-4.7) Magnesium Level 2.3 mg/dL (1.8-2.4) 2.3 mg/dL (1.8-2.4) Medications Active Scripts Medications Dose Route/Sig Max Daily Dose Days Date Category Bisoprolol Fumarate 5 Mg Tablet 10 Mg PO DAILY 07/04/19 Reported Comments Chest x-ray Impression . IMPRESSION: 1. Acute hypoxemic respiratory failure secondary to ARDS due toacute anna creatitis, sepsic shock, abdominal distention, and pneumonia.and pleural effusions. Pleural effusions secondary to abdominal process and/or general volume overload from renal failure. 2. Gallstone pancreatitis. WITH NECROSIS 3. Severe metabolic acidosis. 4. Acute kidney injury. ON CRRT 5. Acute gallstone pancreatitis. 6. Hypoalbuminemia. 7. Hypocalcemia. 8. Leukocytosis 9. Chronic anemia 10. Covid 19 testing negative Plan . Continues to be hemodynamically stable, will continue current support Not ready for trial Cont AC mode , 40 FIO2/ 8 PEEP. Poor prognosis/ ARDS/septic shock supportive care CRRT Repeat CT once stable Antibiotics per ID Follow nephrology input Nutritional support with TPN Prognosis is extremely poor d/w RN/ HARMEET BEE MD Jul 17, 2019 09:00
--- NOTE | 2019-07-17 09:13 | RAD ---
CHEST AP ONLY History: Ventilated patient. Respiratory failure. Comparison: July 16, 2019 Findings: Diffuse interstitial and alveolar opacities. Low lung volumes. Small bilateral layering pleural effusions, unchanged. Stable endotracheal tube, enteric tube, right IJ central line, left-sided central line and right PICC. Impression: 1. No significant interval change compared to prior. Electronically signed by: Sukhdev Sadler DO (07/17/2019 9:10 AM) [id number]
[2019-07-17] MEDS: MICAFUNGIN 100 MG in IV DEXTROSE 5% 100ML 100 ML IV SCH (09:41)
[2019-07-17] MEDS: CEFEPIME HCL IV Push 2 GM VIAL. IVP SCH ×2 (09:42→20:45)
[2019-07-17 10:05] LABS: BASE EXCESS ABG -2 mmol/L (-3-3); HCO3 ABG 23 mmol/L (21-28); PCO2 ABG 41 mmHg (35-46); PO2 ABG 72 mmHg (75-108); SAT O2 ABG 92 % (92-99)
--- NOTE | 2019-07-17 11:54 | PDOC ---
SUBJECTIVE ROS Intubated , stable, uop improved some OBJECTIVE Vital Signs Vital Signs Date Time Temp Pulse Resp B/P (MAP) Pulse Ox O2 Delivery O2 Flow Rate FiO2 07/17/19 11:37 97 Ventilator 07/17/19 11:00 100.0 127 20 141/82 (101) 100.0 I & 0 Intake and Output 07/17/19 07:00 Intake Total 1682.8 ml Output Total 415 ml Balance 1267.8 ml IV Total 1682.8 ml Output Urine Total 415 ml PHYSICAL EXAM Physical Exam GENERAL: Intubated on MV HEENT: Mild icterus, Intubated NECK: Supple. LUNGS: Decreased breath sounds at the bases. HEART: S1, S2, tachycardia, 110s, ABDOMEN: Distended, + BS. Rectal tube in place : Lind + EXTREMITIES: Trace edema, no cyanosis - mottled. DERMATOLOGIC: Warm and dry. No generalized rash. CENTRAL NERVOUS SYSTEM: Intubated on MV DIAGNOSIS/ASSESSMENT Assessment & Plan JUANA - ATN, , requiring [employer], intubated on 07/10 , currently on pressors initially on HD , Switched to CRRT 07/10 seen on CRRT, tolerating well (Temp HDC replaced today 2/2 nonfunctional ) Tolerating UF, plan to switch to HD tomorrow if stable Discussed with RN and Boy HyperKalemia- normal Acidosis - resolved Currently on TPN Anemia- drop in Hgb, per primary HypoCalcemia- Corrected Ca normal Hypoalbuminemia- severe HypOPhos -Replace as needed Acute 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 GI, ID, and general surgery following Calculus of gallbladder with acute cholecystitis without obstruction - with secondary pancreatitis. Lap ronel is indicated, will need to await pancreatitis resolution HTN - Hypotensive, low dose pressor Sepsis - with acute pancreatitis as end organ dysfunction, sign of infection, zyvox, merrem Hypoxia with respiratory failure - intubated COMMENT/RELEVANT DATA Meds Current Medications Medications (Trade) Dose Ordered Sig/Yvon Start Time Stop Time Status Last Admin Dose Admin Acetaminophen (Tylenol Supp) 650 mg PRN Q6HRS PRN 07/12/19 10:30 07/12/19 10:37 650 MG Acetaminophen (Tylenol) 650 mg PRN Q6HRS PRN 07/09/19 03:36 07/14/19 07:35 650 MG Albumin Human 500 ml @ 125 mls/hr 1X ONCE 07/14/19 14:15 07/14/19 18:14 DC Albuterol Sulfate (Ventolin Neb Soln) 2.5 mg 1X ONCE 07/05/19 22:30 07/05/19 22:31 DC 07/06/19 00:56 2.5 MG Artificial Tears (Artificial Tears) 1 drop PRN Q1HR PRN 07/11/19 08:15 Atenolol (Tenormin) 100 mg DAILY 07/05/19 09:00 07/04/19 20:08 DC Benzocaine (Hurricaine One) 1 spray 1X ONCE 07/08/19 14:30 07/08/19 14:31 DC 07/08/19 16:38 1 SPRAY Calcium Carbonate/ Glycine (Tums) 500 mg PRN AFTMEALHC PRN 07/06/19 17:45 Calcium Chloride 1000 mg/Sodium Chloride 110 ml @ 220 mls/hr 1X ONCE 07/05/19 22:30 07/05/19 22:59 DC 07/05/19 22:11 220 MLS/HR Calcium Chloride 3000 mg/Sodium Chloride 1,030 ml @ 50 mls/hr [id number] 07/07/19 08:00 07/09/19 15:23 DC 07/09/19 02:17 50 MLS/HR Calcium Gluconate (Calcium Gluconate) 2,000 mg 1X ONCE 07/07/19 02:15 07/07/19 02:16 DC 07/07/19 02:19 2,000 MG Calcium Gluconate 1000 mg/Sodium Chloride 110 ml @ 220 mls/hr 1X ONCE 07/06/19 03:30 07/06/19 03:59 DC 07/06/19 03:21 220 MLS/HR Calcium Gluconate 2000 mg/Sodium Chloride 120 ml @ 220 mls/hr 1X ONCE 07/06/19 07:30 07/06/19 08:02 DC 07/06/19 09:05 220 MLS/HR Cefepime HCl (Maxipime) 2 gm Q12HR 07/13/19 09:00 07/17/19 09:42 2 GM Daptomycin 500 mg/ Sodium Chloride 50 ml @ 100 mls/hr Q48H 07/13/19 08:30 07/17/19 08:10 100 MLS/HR Dextrose (Dextrose 50%-Water Syringe) 12.5 gm PRN Q15MIN PRN 07/04/19 09:30 Digoxin (Lanoxin) 125 mcg 1X ONCE 07/07/19 18:00 07/07/19 18:01 DC 07/07/19 17:10 125 MCG Diphenhydramine HCl (Benadryl) 25 mg 1X PRN PRN 07/11/19 07:30 07/12/19 07:29 DC Etomidate (Amidate) 8 mg 1X ONCE 07/11/19 08:30 07/11/19 08:31 DC 07/11/19 08:33 8 MG Fentanyl Citrate 30 ml @ 0 mls/hr CONT PRN 07/11/19 08:15 07/17/19 08:12 2.5 MLS/HR Fentanyl Citrate (Fentanyl 2ml Vial) 100 mcg STK-MED ONCE 07/04/19 03:18 07/04/19 03:18 DC Furosemide (Lasix) 40 mg 1X ONCE 07/05/19 22:30 07/05/19 22:31 DC 07/05/19 22:12 40 MG Heparin Sodium (Porcine) (Heparin Sodium) 5,000 unit Q8HRS 07/11/19 15:00 07/16/19 13:28 DC 07/16/19 05:55 5,000 UNIT Hydromorphone HCl (Dilaudid) 1 mg PRN Q3HRS PRN 07/05/19 12:00 07/11/19 05:13 1 MG Info (CONTRAST GIVEN -- Rx MONITORING) 1 each PRN DAILY PRN 07/05/19 17:00 07/07/19 16:59 DC Info (PHARMACY MONITORING -- do not chart) 1 each PRN DAILY PRN 07/11/19 07:30 Info (Tpn Per Pharmacy) 1 each PRN DAILY PRN 07/06/19 12:30 UNV Insulin Human Lispro (HumaLOG) 0-9 UNITS Q6HRS 07/04/19 09:30 07/17/19 06:06 4 UNITS Insulin Human Regular (HumuLIN R VIAL) 5 unit 1X ONCE 07/05/19 22:30 07/05/19 22:31 DC 07/05/19 22:14 5 UNIT Iohexol (Omnipaque 300 Mg/ml) 60 ml 1X ONCE 07/05/19 17:00 07/05/19 17:01 DC 07/05/19 17:20 60 ML Iohexol (Omnipaque 350 Mg/ml) 90 ml 1X ONCE 07/04/19 03:30 07/04/19 03:31 DC 07/04/19 03:25 90 ML Ketorolac Tromethamine (Toradol 30mg Vial) 30 mg 1X ONCE 07/04/19 03:00 07/04/19 03:01 DC 07/04/19 02:54 30 MG Lidocaine HCl (Buffered Lidocaine 1%) 3 ml STK-MED ONCE 07/13/19 10:00 07/15/19 13:57 DC Lidocaine HCl (Glydo (Lidocaine) Jelly) 1 ramu 1X ONCE 07/08/19 14:30 07/08/19 14:31 DC 07/08/19 16:38 1 RAMU Lidocaine HCl (Xylocaine-Mpf 1% 2ml Vial) 2 ml STK-MED ONCE 07/06/19 08:47 07/06/19 08:47 DC Linezolid/Dextrose 300 ml @ 300 mls/hr Q12HR 07/08/19 20:00 07/15/19 07:50 DC 07/14/19 21:04 300 MLS/HR Lorazepam (Ativan Inj) 1 mg PRN Q4HRS PRN 07/07/19 09:00 07/11/19 00:34 1 MG Magnesium Sulfate 100 ml @ 25 mls/hr 1X ONCE 07/07/19 13:00 07/07/19 16:59 DC 07/07/19 12:48 25 MLS/HR Meropenem 1 gm/ Sodium Chloride 100 ml @ 200 mls/hr Q8HRS 07/05/19 20:00 07/06/19 08:48 DC 07/06/19 05:45 200 MLS/HR Meropenem 500 mg/ Sodium Chloride 50 ml @ 100 mls/hr Q6HRS 07/12/19 09:00 07/13/19 07:29 DC 07/13/19 06:00 100 MLS/HR Metoprolol Tartrate (Lopressor Vial) 5 mg Q6HRS 07/05/19 10:15 07/16/19 08:48 DC 07/14/19 00:12 5 MG Metronidazole 100 ml @ 100 mls/hr Q6HRS 07/11/19 08:30 07/17/19 11:27 100 MLS/HR Micafungin Sodium 100 mg/Dextrose 100 ml @ 100 mls/hr Q24H 07/11/19 09:00 07/17/19 09:41 100 MLS/HR Midazolam HCl (Versed) 5 mg 1X ONCE 07/11/19 08:30 07/11/19 08:31 DC Midazolam HCl 100 mg/Sodium Chloride 100 ml @ 7 mls/hr CONT PRN 07/16/19 16:00 Midazolam HCl 50 mg/Sodium Chloride 50 ml @ 0 mls/hr CONT PRN 07/11/19 08:15 07/16/19 15:59 DC 07/14/19 22:39 7 MLS/HR Morphine Sulfate (Morphine Sulfate) 2 mg PRN Q2HR PRN 07/04/19 05:00 07/05/19 14:15 DC 07/05/19 12:26 2 MG Multi-Ingred Cream/Lotion/Oil/ Oint (Artificial Tears Eye Ointment) 1 ramu PRN Q1HR PRN 07/13/19 17:30 Norepinephrine Bitartrate 8 mg/ Dextrose 258 ml @ 17.299 mls/ hr CONT PRN 07/05/19 15:30 07/17/19 03:38 12.109 MLS/HR Ondansetron HCl (Zofran) 4 mg PRN Q4HRS PRN 07/04/19 09:30 07/09/19 16:15 4 MG Pantoprazole Sodium (PROTONIX VIAL for IV PUSH) 40 mg DAILYAC 07/04/19 11:30 07/17/19 08:19 40 MG Piperacillin Sod/ Tazobactam Sod 4.5 gm/Sodium Chloride 100 ml @ 200 mls/hr 1X ONCE 07/04/19 06:00 07/04/19 06:29 DC 07/04/19 05:44 200 MLS/HR Potassium Chloride 15 meq/ Bicarbonate Dialysis Soln w/ out KCl 5,007.5 ml @ 1,000 mls/ hr Q5H1M 07/11/19 12:00 07/12/19 11:19 DC 07/12/19 11:11 1,000 MLS/HR Potassium Chloride 20 meq/ Bicarbonate Dialysis Soln w/ out KCl 5,010 ml @ 1,000 mls/hr Q5H1M 07/13/19 16:00 07/17/19 05:28 1,000 MLS/HR Potassium Chloride/Water 100 ml @ 100 mls/hr Q1H 07/12/19 11:00 07/12/19 12:59 DC 07/12/19 12:12 100 MLS/HR Potassium Phosphate 20 mmol/ Sodium Chloride 106.6667 ml @ 51.667 m... 1X ONCE 07/13/19 13:00 07/13/19 15:03 DC 07/13/19 12:51 51.667 MLS/HR Prochlorperazine Edisylate (Compazine) 10 mg PRN Q6HRS PRN 07/04/19 17:45 07/05/19 00:42 10 MG Propofol 0 ml @ As Directed STK-MED ONCE 07/11/19 07:53 07/11/19 07:53 DC Sodium Bicarbonate 50 meq/Sodium Chloride 1,050 ml @ 75 mls/hr Q14H 07/06/19 07:30 07/11/19 10:28 DC 07/10/19 21:10 75 MLS/HR Sodium Chloride (Normal Saline Flush) 10 ml 1X PRN PRN 07/09/19 08:00 07/10/19 07:59 DC Sodium Chloride 90 meq/Calcium Gluconate 10 meq/ Multivitamins 10 ml/Chromium/ Copper/Manganese/ Seleni/Zn 0.5 ml/ Total Parenteral Nutrition/Amino Acids/Dextrose/ Fat Emulsion Intravenous 1,512 ml @ 63 mls/hr TPN CONT 07/06/19 22:00 07/07/19 21:59 DC 07/06/19 22:06 63 MLS/HR Sodium Chloride 90 meq/Calcium Gluconate 10 meq/ Multivitamins 10 ml/Chromium/ Copper/Manganese/ Seleni/Zn 1 ml/ Total Parenteral Nutrition/Amino Acids/Dextrose/ Fat Emulsion Intravenous 55.005 ml @ 2.292 mls/hr TPN CONT 07/06/19 22:00 07/06/19 12:33 DC Sodium Chloride 90 meq/Magnesium Sulfate 10 meq/ Calcium Gluconate 20 meq/ Multivitamins 10 ml/Chromium/ Copper/Manganese/ Seleni/Zn 0.5 ml/ Total Parenteral Nutrition/Amino Acids/Dextrose/ Fat Emulsion Intravenous 1,512 ml @ 63 mls/hr TPN CONT 07/07/19 22:00 07/08/19 21:59 DC 07/07/19 22:25 63 MLS/HR Sodium Chloride 90 meq/Potassium Chloride 15 meq/ Potassium Phosphate 10 mmol/ Magnesium Sulfate 10 meq/Calcium Gluconate 20 meq/ Multivitamins 10 ml/Chromium/ Copper/Manganese/ Seleni/Zn 0.5 ml/ Total Parenteral Nutrition/Amino Acids/Dextrose/ Fat Emulsion Intravenous 1,400 ml @ 58.333 mls/ hr TPN CONT 07/11/19 22:00 07/12/19 21:59 DC 07/11/19 21:42 58.333 MLS/HR Sodium Chloride 90 meq/Potassium Chloride 15 meq/ Potassium Phosphate 15 mmol/ Magnesium Sulfate 10 meq/Calcium Gluconate 15 meq/ Multivitamins 10 ml/Chromium/ Copper/Manganese/ Seleni/Zn 0.5 ml/ Total Parenteral Nutrition/Amino Acids/Dextrose/ Fat Emulsion Intravenous 1,400 ml @ 58.333 mls/ hr TPN CONT 07/12/19 22:00 07/13/19 21:59 DC 07/12/19 22:17 58.333 MLS/HR Sodium Chloride 90 meq/Potassium Chloride 15 meq/ Potassium Phosphate 15 mmol/ Magnesium Sulfate 10 meq/Calcium Gluconate 20 meq/ Multivitamins 10 ml/Chromium/ Copper/Manganese/ Seleni/Zn 0.5 ml/ Total Parenteral Nutrition/Amino Acids/Dextrose/ Fat Emulsion Intravenous 1,200 ml @ 50 mls/hr TPN CONT 07/10/19 22:00 07/10/19 14:17 DC Sodium Chloride 90 meq/Potassium Chloride 15 meq/ Potassium Phosphate 18 mmol/ Magnesium Sulfate 8 meq/Calcium Gluconate 15 meq/ Multivitamins 10 ml/Chromium/ Copper/Manganese/ Seleni/Zn 0.5 ml/ Insulin Human Regular 10 unit/ Total Parenteral Nutrition/Amino Acids/Dextrose/ Fat Emulsion Intravenous 1,400 ml @ 58.333 mls/ hr TPN CONT 07/15/19 22:00 07/16/19 21:59 DC 07/15/19 21:43 58.333 MLS/HR Sodium Chloride 90 meq/Potassium Chloride 15 meq/ Potassium Phosphate 18 mmol/ Magnesium Sulfate 8 meq/Calcium Gluconate 15 meq/ Multivitamins 10 ml/Chromium/ Copper/Manganese/ Seleni/Zn 0.5 ml/ Insulin Human Regular 15 unit/ Total Parenteral Nutrition/Amino Acids/Dextrose/ Fat Emulsion Intravenous 1,400 ml @ 58.333 mls/ hr TPN CONT 07/16/19 22:00 07/17/19 21:59 07/16/19 20:34 58.333 MLS/HR Sodium Chloride 90 meq/Potassium Chloride 15 meq/ Potassium Phosphate 18 mmol/ Magnesium Sulfate 8 meq/Calcium Gluconate 15 meq/ Multivitamins 10 ml/Chromium/ Copper/Manganese/ Seleni/Zn 0.5 ml/ Total Parenteral Nutrition/Amino Acids/Dextrose/ Fat Emulsion Intravenous 1,400 ml @ 58.333 mls/ hr TPN CONT 07/14/19 22:00 07/15/19 21:59 DC 07/14/19 22:00 58.333 MLS/HR Succinylcholine Chloride (Anectine) 120 mg 1X ONCE 07/11/19 08:30 07/11/19 08:31 DC 07/11/19 08:34 120 MG Lab Laboratory Tests Test 07/16/19 17:47 07/16/19 17:48 07/16/19 23:30 07/17/19 05:40 Glucose (Fingerstick) 231 mg/dL (70-99) 199 mg/dL (70-99) Sodium Level 138 mmol/L (136-145) 138 mmol/L (136-145) 138 mmol/L (136-145) Potassium Level 4.6 mmol/L (3.5-5.1) 4.3 mmol/L (3.5-5.1) 4.6 mmol/L (3.5-5.1) Chloride Level 105 mmol/L (98-107) 105 mmol/L (98-107) 105 mmol/L (98-107) Carbon Dioxide Level 27 mmol/L (21-32) 26 mmol/L (21-32) 28 mmol/L (21-32) Anion Gap 6 (6-14) 7 (6-14) 5 (6-14) Blood Urea Nitrogen 41 mg/dL (7-20) 38 mg/dL (7-20) 36 mg/dL (7-20) Creatinine 1.4 mg/dL (0.6-1.0) 1.3 mg/dL (0.6-1.0) 1.3 mg/dL (0.6-1.0) Estimated GFR (Cockcroft-Gault) 40.0 43.5 43.5 Glucose Level 233 mg/dL (70-99) 217 mg/dL (70-99) 202 mg/dL (70-99) Calcium Level 8.0 mg/dL (8.5-10.1) 8.1 mg/dL (8.5-10.1) 8.2 mg/dL (8.5-10.1) Phosphorus Level 3.6 mg/dL (2.6-4.7) 3.3 mg/dL (2.6-4.7) 3.5 mg/dL (2.6-4.7) Magnesium Level 2.1 mg/dL (1.8-2.4) 2.3 mg/dL (1.8-2.4) 2.3 mg/dL (1.8-2.4) White Blood Count 38.7 x10^3/uL (4.0-11.0) Red Blood Count 2.10 x10^6/uL (3.50-5.40) Hemoglobin 6.8 g/dL (12.0-15.5) Hematocrit 20.7 % (36.0-47.0) Mean Corpuscular Volume 99 fL (79-100) Mean Corpuscular Hemoglobin 32 pg (25-35) Mean Corpuscular Hemoglobin Concent 33 g/dL (31-37) Red Cell Distribution Width 15.7 % (11.5-14.5) Platelet Count 319 x10^3/uL (140-400) Neutrophils (%) (Auto) 90 % (31-73) Lymphocytes (%) (Auto) 5 % (24-48) Monocytes (%) (Auto) 4 % (0-9) Eosinophils (%) (Auto) 1 % (0-3) Basophils (%) (Auto) 1 % (0-3) Neutrophils # (Auto) 34.7 x10^3/uL (1.8-7.7) Lymphocytes # (Auto) 1.9 x10^3/uL (1.0-4.8) Monocytes # (Auto) 1.4 x10^3/uL (0.0-1.1) Eosinophils # (Auto) 0.5 x10^3/uL (0.0-0.7) Basophils # (Auto) 0.2 x10^3/uL (0.0-0.2) Test 07/17/19 05:41 Glucose (Fingerstick) 189 mg/dL (70-99) Results All relevant outside records, renal labs, imaging studies, telemetry/EKG's were reviewed. VERENA KENT MD Jul 17, 2019 11:54
[2019-07-17] MEDS: MIDAZOLAM HCL 100 MG in IV NORMAL SALINE 100ML 100 ML IV PRN (12:28)
[2019-07-17] MEDS ORDERED: ELECTROLYTE (ICU) PROTOCOL. MC PRN (13:15)
[2019-07-17 13:16] LABS: CALCIUM 8.2 mg/dL (8.5-10.1); CREATININE 1.2 mg/dL (0.6-1.0); GFR 47.7; MAGNESIUM 2.3 mg/dL (1.8-2.4); POTASSIUM 4.4 mmol/L (3.5-5.1)
--- NOTE | 2019-07-17 13:19 | PDOC ---
[facility] PROGRESS NOTE Chief Complaint Chief Complaint Respiratory failure requiring mechanical ventilation Severe Acute pancreatitis Acute kidney failure now requiring dialysis Salpingo--itis Gallstones (Calculus of gallbladder with acute cholecystitis without obstruction) HTN Leukocytosis Hypoxia Uterine fibroid Hypoxia with respiratory failure Intractable pain Intractable nausea Possible Covid 19? History of Present Illness History of Present Illness [id number] Patient seen and examined in the ICU She is still on CRRT although we plan to change to hemodialysis soon Chart reviewed Discussed with RN Hemoglobin down to 6.9 (suspect CRRT related , Will let nephrology consider tra nsfusion while on dialysis) [id number] Patient seen and examined in the ICU She is mechanically ventilated Before meals/25/450/30% Also on CRRT Very critically ill Chart reviewed Discussed with RN [id number] Patient seen and examined in the ICU She is now been transferred to the Covid 19 unit so we can rule out Covid and keep her in isolation Very critically ill Intubated and ventilated Assist control 40% Chart reviewed Discussed with RN Still on CRRT Getting a chest x-ray now Very concerned about her prognosis [id number] Patient seen and examined in the ICU She is extremely critically ill Remains mechanically ventilated with assist control/25/450/40% Also on continuous renal replacement therapy Chart reviewed Discussed with RN She has TPN hanging Also on pressors [id number] Patient seen and examined in the ICU She is still requiring CRRT On the vent with assist control but her FiO2 is down to 40% from yesterday Slightly better but still very critically ill Discussed with RN Chart reviewed [id number] Patient seen and examined in the ICU She remains extremely critically ill On IV fentanyl IV Versed IV Doxy On the vent Assist-control/25/450/70% She is critically ill Discussed with RN Chart reviewed Patient is currently on CRRT as well [id number] Patient seen and examined in the ICU She had to be intubated this morning On assist-control 25/450/100% with 10 of PEEP and only satting 87% She is extremely critically ill I'm not sure if she will survive Chart reviewed Discussed with RN Ms Diaz is a 48yo F w/ PMHx HTN, prediabetes who presents the emergency room complaints of abdominal pain. Patient described off and on 3 days. She states is constant, described as a squeezing sensation in a band-like distribution. + nausea, vomiting. She denies any fever or diarrhea. Patient denies any abdominal surgical procedures. She states is worse with movements, car ride. Pain initially was upper abdomen however now pretty much generalized. Last bowel movement was 07/03/2019. Nothing makes her pain better. Patient denies any shortness of breath. She does state the pain moves into her chest. Denies any headache or visual changes. Lipase 39966, AST 401, ALT 249, Bilirubin 1.4. CT abdomen confirms pancreatic inflammation, peripancreatic fluid and inflammatory changes around the pancreas consistent with pancreatitis. Cholelithiasis and 1.4cm uterine fibroid as well as possible left salpingitis. Admitted for further care GI, General surgery, ID, Pulm consulted. 07/04: Overnight per report no urine output. Added dilaudid for pain, PICC placed per IR. Renal US negative.Seen bedside in ICU, given 2L additional NSS and albumin infusion. Still hypotensive, started on levophed. Repeat CT abdomen with necrosis. Updated her fiancee 07/05: Sats are only 87% on nasal cannula oxygen. Dialysis catheter per nephrology 07/06: She is now on BiPAP appears more ill, now on dialysis 07/07: Seen on BiPAP. Her mother and another family member are present and seemed to be good support for her. Currently on dialysis. Appears critically ill 07/08: Overnight Tmax 101.7 , still on BiPAP FiO2 40%, still on low dose Levophed gtt, TPN initiated. On dialysis Overnight still febrile. Dialysis today. She wakes up and responds to pain. No CP. Vitals/I&O Vitals/I&O: Vital Signs Date Time Temp Pulse Resp B/P (MAP) Pulse Ox O2 Delivery O2 Flow Rate FiO2 07/17/19 13:00 119 24 96/59 (71) 96 Ventilator 07/17/19 11:00 100.0 100.0 I & O 07/16/19 07/16/19 07/17/19 15:00 23:00 07:00 Intake Total 1682.8 ml Output Total 140 ml 170 ml 105 ml Balance -140 ml -170 ml 1577.8 ml Physical Exam Physical Exam: GENERAL: Orally intubated/sedated - generalizd anasarca HEENT: Mild icterus, pupils equal, ETT, NGT NECK: Supple. LUNGS: Decreased breath sounds at the bases. HEART: S1, S2, regular ABDOMEN: Distended, hypoactive BS, Rectal tube in place : Lind EXTREMITIES: Generalized edema, no cyanosis - some mottling, Rooke boots bilaterally DERMATOLOGIC: Warm and dry. No generalized rash. CENTRAL NERVOUS SYSTEM: Sedated RIJ Temp HDC, RUE-PICC & LIJ - clean General: Other (sedated ) Heart: Other (increased rate) Lungs: Crackles Abdomen: Soft, Other (distended, obese, no obvious TTP) Extremities: No edema, Other (SOME CLUBBING ) Skin: Other (mottling noted to extremities ) Labs Labs: Laboratory Tests Test 07/16/19 17:47 07/16/19 17:48 07/16/19 23:30 07/17/19 05:40 Glucose (Fingerstick) 231 mg/dL (70-99) 199 mg/dL (70-99) Sodium Level 138 mmol/L (136-145) 138 mmol/L (136-145) 138 mmol/L (136-145) Potassium Level 4.6 mmol/L (3.5-5.1) 4.3 mmol/L (3.5-5.1) 4.6 mmol/L (3.5-5.1) Chloride Level 105 mmol/L (98-107) 105 mmol/L (98-107) 105 mmol/L (98-107) Carbon Dioxide Level 27 mmol/L (21-32) 26 mmol/L (21-32) 28 mmol/L (21-32) Anion Gap 6 (6-14) 7 (6-14) 5 (6-14) Blood Urea Nitrogen 41 mg/dL (7-20) 38 mg/dL (7-20) 36 mg/dL (7-20) Creatinine 1.4 mg/dL (0.6-1.0) 1.3 mg/dL (0.6-1.0) 1.3 mg/dL (0.6-1.0) Estimated GFR (Cockcroft-Gault) 40.0 43.5 43.5 Glucose Level 233 mg/dL (70-99) 217 mg/dL (70-99) 202 mg/dL (70-99) Calcium Level 8.0 mg/dL (8.5-10.1) 8.1 mg/dL (8.5-10.1) 8.2 mg/dL (8.5-10.1) Phosphorus Level 3.6 mg/dL (2.6-4.7) 3.3 mg/dL (2.6-4.7) 3.5 mg/dL (2.6-4.7) Magnesium Level 2.1 mg/dL (1.8-2.4) 2.3 mg/dL (1.8-2.4) 2.3 mg/dL (1.8-2.4) White Blood Count 38.7 x10^3/uL (4.0-11.0) Red Blood Count 2.10 x10^6/uL (3.50-5.40) Hemoglobin 6.8 g/dL (12.0-15.5) Hematocrit 20.7 % (36.0-47.0) Mean Corpuscular Volume 99 fL (79-100) Mean Corpuscular Hemoglobin 32 pg (25-35) Mean Corpuscular Hemoglobin Concent 33 g/dL (31-37) Red Cell Distribution Width 15.7 % (11.5-14.5) Platelet Count 319 x10^3/uL (140-400) Neutrophils (%) (Auto) 90 % (31-73) Lymphocytes (%) (Auto) 5 % (24-48) Monocytes (%) (Auto) 4 % (0-9) Eosinophils (%) (Auto) 1 % (0-3) Basophils (%) (Auto) 1 % (0-3) Neutrophils # (Auto) 34.7 x10^3/uL (1.8-7.7) Lymphocytes # (Auto) 1.9 x10^3/uL (1.0-4.8) Monocytes # (Auto) 1.4 x10^3/uL (0.0-1.1) Eosinophils # (Auto) 0.5 x10^3/uL (0.0-0.7) Basophils # (Auto) 0.2 x10^3/uL (0.0-0.2) Test 07/17/19 05:41 07/17/19 12:10 07/17/19 13:00 Glucose (Fingerstick) 189 mg/dL (70-99) 204 mg/dL (70-99) Sodium Level 138 mmol/L (136-145) Potassium Level 4.4 mmol/L (3.5-5.1) Chloride Level 103 mmol/L (98-107) Carbon Dioxide Level 27 mmol/L (21-32) Anion Gap 8 (6-14) Blood Urea Nitrogen 34 mg/dL (7-20) Creatinine 1.2 mg/dL (0.6-1.0) Estimated GFR (Cockcroft-Gault) 47.7 Glucose Level 210 mg/dL (70-99) Calcium Level 8.2 mg/dL (8.5-10.1) Magnesium Level 2.3 mg/dL (1.8-2.4) Assessment and Plan Assessmemt and Plan Problems Medical Problems: (1) Acute pancreatitis Status: Acute (2) Cholelithiasis Status: Acute Respiratory failure requiring intubation Severe Acute pancreatitis Acute kidney failure now requiring dialysis Salpingo--itis Gallstones (Calculus of gallbladder with acute cholecystitis without obstruction) HTN Leukocytosis Hypoxia Uterine fibroid Hypoxia with respiratory failure Intractable pain Intractable nausea Plan CRRT but we are changing to hemodialysis Mechanical ventilation ICU monitoring When necessary transfusions Trend labs especially white count and lipase levels We have consulted GI and general surgery Appreciate pulmonary assistance as well IV antibiotics IV fluids RI narcotics When necessary anti-medics Home meds if possible DVT prophylaxis Full code She is critically ill Total time 34 minutes Comment Review of Relevant I have reviewed the following items kolby (where applicable) has been applied. Medications: Current Medications Medications (Trade) Dose Ordered Sig/Yvon Route PRN Reason Start Time Stop Time Status Last Admin Dose Admin Midazolam HCl 100 mg/Sodium Chloride 100 ml @ 7 mls/hr CONT PRN IV SEE PROTOCOL 07/16/19 16:00 07/17/19 12:28 Sodium Chloride 90 meq/Potassium Chloride 15 meq/ Potassium Phosphate 18 mmol/ Magnesium Sulfate 8 meq/Calcium Gluconate 15 meq/ Multivitamins 10 ml/Chromium/ Copper/Manganese/ Seleni/Zn 0.5 ml/ Insulin Human Regular 15 unit/ Total Parenteral Nutrition/Amino Acids/Dextrose/ Fat Emulsion Intravenous 1,400 ml @ 58.333 mls/ hr TPN CONT IV 07/16/19 22:00 07/17/19 21:59 07/16/19 20:34 Hemodynamically unstable?: Yes Is patient in severe pain?: Yes Is NPO status required?: Yes BEBO KIRBY III DO Jul 17, 2019 13:19
[2019-07-17] MEDS: TPN PER PHARMACY MC PRN (13:48)
--- NOTE | 2019-07-17 13:51 | NUR ---
Pharmacy TPN Dosing Note S: SCOTT AVILA is a 48 year old F Currently receiving Central Continuous TPN started 07/06/19 B:Pertinent PMH: Necrotizing pancreatitis Height: 5 feet, 8 inches Weight: 111.2 kg Current diet: NPO LABS: Sodium: 138 Potassium: 4.4 Chloride: 105 Calcium: 8.2 Corrected Calcium: 9.88 Magnesium: 2.3 CO2: 27 SCr: 1.2 Glucose: 189-204 Albumin: 1.9 AST: 37 ALT: 16 TPN FORMULA: TPN TYPE: Central Continuous AMINO ACIDS: 125 gm DEXTROSE: 195 gm LIPIDS: 40 gm SODIUM CHLORIDE: 90 mEq SODIUM ACETATE: -- mEq SODIUM PHOSPHATE: -- mmol POTASSIUM CHLORIDE: 15 mEq POTASSIUM ACETATE: -- mEq POTASSIUM PHOSPHATE: 18 mmol MAGNESIUM: 8 mEq CALCIUM: 15 mEq INSULIN: 15 units MULTIPLE VITAMIN: 10 ml TRACE ELEMENTS: 0.5 ml(s) TPN PLAN: Labs WNL; BG still high but improved. Likely to change to IHD tomorrow. No change. Labs per nephrology for CRRT monitoring. R: Continue TPN ABOVE. Will monitor electrolytes, glucose, and tolerance to TPN. CHRISTIAN VALLEJO [facility], 07/17/19 [id number]
[2019-07-17 15:39] LABS: FIO2 ABG 40
--- NOTE | 2019-07-17 15:39 | PDOC ---
PROGRESS NOTES Assessment Assessment Respiratory failure. Seizure. Metabolic encephalopathy. Fever 102.7 degree. Metabolic acidosis. Diffuse pulmonary infiltrate. Pleural effusion. Pancreatitis Gallstone. Leukocytosis. Electrolytes imbalances. Hyperglycemia. DM. HTN. HLD. Anemia. Obesity. RECOMMENDATIONS/PLAN: Continue life support in ICU at the present time. Yudi if has further seizures. Lab: see orders, including pending Covid-19 results. Treat medical diseases. EEG last week: No seizure activity. Past Medical History Cardiovascular: HTN, Hyperlipidemia Endocrine: Diabetes Family History Unobtainable. Social HistoryU not obtainable Allergies Coded Allergies: codeine (Verified Allergy, Intermediate, rash, 07/04/19) ROS Unobtainable in unresponsive state. PHYSICAL EXAMINATION: General appearance in sub acute distress. HEENT: Normocephalic and nontraumatic. Eyes, nose, ears, and throat are unremarkable. Neck is supple. No lymphadenopathy. Cardiovascular: S1, S2. Pulmonary: On vent.. Abdomen: Bowel sounds are weak. Extremities: No rash, lesions. NEUROLOGICAL EXAMINATION: Unresponsive. On vent. Not oriented to time, place and person. PERRL. EOMI not elicited, CN: no acute focal findings. Muscle tone: within normal. Muscle strength: No movements to stimuli. DTR: 0-1 Plantar reflex: No response bilaterally Gait: not able to walk. Sensory exam: no response to stimuli.. Not able to access cerebellar signs. F-T-N test not performed due to unresponsiveness Objective Objective Vital Signs Date Time Temp Pulse Resp B/P (MAP) Pulse Ox O2 Delivery O2 Flow Rate FiO2 07/17/19 14:00 124 24 102/65 (77) 95 Ventilator 07/17/19 11:00 100.0 100.0 Intake and Output 07/17/19 07:00 Intake Total 1682.8 ml Output Total 415 ml Balance 1267.8 ml IV Total 1682.8 ml Output Urine Total 415 ml Vitals Signs Vitals VS - Last 72 Hours, by Label Date Time Temp Pulse Resp B/P (MAP) Pulse Ox O2 Delivery O2 Flow Rate FiO2 07/17/19 14:00 124 24 102/65 (77) 95 Ventilator 07/17/19 13:00 119 24 96/59 (71) 96 Ventilator 07/17/19 12:00 Mechanical Ventilator 07/17/19 12:00 122 26 128/68 (88) 98 Ventilator 07/17/19 11:37 97 Ventilator 07/17/19 11:00 100.0 127 20 141/82 (101) 96 Ventilator 100.0 07/17/19 10:00 128 34 136/94 (108) 95 Ventilator 07/17/19 09:00 122 25 114/79 (91) 97 Ventilator 07/17/19 08:59 97 Ventilator 07/17/19 08:42 96 Ventilator 07/17/19 08:15 Mechanical Ventilator 07/17/19 08:12 96 Ventilator 07/17/19 08:00 99.7 120 25 114/67 (83) 95 Ventilator 99.7 07/17/19 07:00 112 25 118/92 (101) 98 Ventilator 07/17/19 06:00 112 25 103/53 (70) 98 Ventilator 07/17/19 05:22 93 Ventilator 07/17/19 05:00 102 25 109/73 (85) 98 Ventilator 07/17/19 04:00 Mechanical Ventilator 07/17/19 04:00 98.4 105 25 100/79 (86) 98 Ventilator 98.4 07/17/19 03:00 102 25 104/50 (68) 98 Ventilator 07/17/19 02:00 110 25 116/84 (95) 98 Ventilator 07/17/19 01:38 Ventilator 07/17/19 01:00 98.4 102 25 119/72 (88) 98 Ventilator 98.4 07/17/19 00:00 Mechanical Ventilator 07/17/19 00:00 103 25 108/84 (92) 98 Ventilator 07/16/19 23:00 118 25 119/72 (88) 98 Ventilator 07/16/19 22:15 96 Ventilator 07/16/19 22:00 116 25 117/64 (81) 98 Ventilator 07/16/19 21:00 124 26 130/82 (98) 98 Ventilator 07/16/19 20:32 95 Ventilator 07/16/19 20:00 98.0 120 26 97/77 (84) 98 Ventilator 98.0 07/16/19 20:00 Mechanical Ventilator 07/16/19 19:00 124 26 84/62 (69) 99 Ventilator 07/16/19 18:08 123 26 95/58 (70) 98 Ventilator 07/16/19 17:04 95 Ventilator 07/16/19 17:00 114 26 105/98 (100) 95 Ventilator 07/16/19 16:00 98.5 107 26 119/65 (83) 99 Ventilator 98.5 07/16/19 16:00 Mechanical Ventilator 07/16/19 15:00 117 26 119/62 (81) 98 Ventilator 07/16/19 14:00 106 26 113/57 (75) 98 Ventilator 07/16/19 13:00 107 27 97/71 (80) 98 Ventilator 07/16/19 12:45 98 Ventilator 07/16/19 12:00 115 25 111/62 (78) 98 Ventilator 07/16/19 12:00 Mechanical Ventilator 07/16/19 11:00 104 27 111/69 (83) 98 Ventilator 07/16/19 10:00 105 26 119/84 (96) 98 Ventilator 07/16/19 09:00 108 26 133/58 (83) 98 Ventilator 07/16/19 08:06 98 Ventilator 07/16/19 08:00 Mechanical Ventilator 07/16/19 08:00 98.4 107 26 113/85 (94) 94 Ventilator 98.4 07/16/19 07:00 103 25 78/61 (67) 98 Ventilator Laboratory Laboratory Laboratory Tests Test 07/16/19 17:47 07/16/19 17:48 07/16/19 23:30 07/17/19 05:40 Glucose (Fingerstick) 231 mg/dL (70-99) 199 mg/dL (70-99) Sodium Level 138 mmol/L (136-145) 138 mmol/L (136-145) 138 mmol/L (136-145) Potassium Level 4.6 mmol/L (3.5-5.1) 4.3 mmol/L (3.5-5.1) 4.6 mmol/L (3.5-5.1) Chloride Level 105 mmol/L (98-107) 105 mmol/L (98-107) 105 mmol/L (98-107) Carbon Dioxide Level 27 mmol/L (21-32) 26 mmol/L (21-32) 28 mmol/L (21-32) Anion Gap 6 (6-14) 7 (6-14) 5 (6-14) Blood Urea Nitrogen 41 mg/dL (7-20) 38 mg/dL (7-20) 36 mg/dL (7-20) Creatinine 1.4 mg/dL (0.6-1.0) 1.3 mg/dL (0.6-1.0) 1.3 mg/dL (0.6-1.0) Estimated GFR (Cockcroft-Gault) 40.0 43.5 43.5 Glucose Level 233 mg/dL (70-99) 217 mg/dL (70-99) 202 mg/dL (70-99) Calcium Level 8.0 mg/dL (8.5-10.1) 8.1 mg/dL (8.5-10.1) 8.2 mg/dL (8.5-10.1) Phosphorus Level 3.6 mg/dL (2.6-4.7) 3.3 mg/dL (2.6-4.7) 3.5 mg/dL (2.6-4.7) Magnesium Level 2.1 mg/dL (1.8-2.4) 2.3 mg/dL (1.8-2.4) 2.3 mg/dL (1.8-2.4) White Blood Count 38.7 x10^3/uL (4.0-11.0) Red Blood Count 2.10 x10^6/uL (3.50-5.40) Hemoglobin 6.8 g/dL (12.0-15.5) Hematocrit 20.7 % (36.0-47.0) Mean Corpuscular Volume 99 fL (79-100) Mean Corpuscular Hemoglobin 32 pg (25-35) Mean Corpuscular Hemoglobin Concent 33 g/dL (31-37) Red Cell Distribution Width 15.7 % (11.5-14.5) Platelet Count 319 x10^3/uL (140-400) Neutrophils (%) (Auto) 90 % (31-73) Lymphocytes (%) (Auto) 5 % (24-48) Monocytes (%) (Auto) 4 % (0-9) Eosinophils (%) (Auto) 1 % (0-3) Basophils (%) (Auto) 1 % (0-3) Neutrophils # (Auto) 34.7 x10^3/uL (1.8-7.7) Lymphocytes # (Auto) 1.9 x10^3/uL (1.0-4.8) Monocytes # (Auto) 1.4 x10^3/uL (0.0-1.1) Eosinophils # (Auto) 0.5 x10^3/uL (0.0-0.7) Basophils # (Auto) 0.2 x10^3/uL (0.0-0.2) Test 07/17/19 05:41 07/17/19 12:10 07/17/19 13:00 Glucose (Fingerstick) 189 mg/dL (70-99) 204 mg/dL (70-99) Sodium Level 138 mmol/L (136-145) Potassium Level 4.4 mmol/L (3.5-5.1) Chloride Level 103 mmol/L (98-107) Carbon Dioxide Level 27 mmol/L (21-32) Anion Gap 8 (6-14) Blood Urea Nitrogen 34 mg/dL (7-20) Creatinine 1.2 mg/dL (0.6-1.0) Estimated GFR (Cockcroft-Gault) 47.7 Glucose Level 210 mg/dL (70-99) Calcium Level 8.2 mg/dL (8.5-10.1) Phosphorus Level 2.6 mg/dL (2.6-4.7) Magnesium Level 2.3 mg/dL (1.8-2.4) Microbiology 07/12/19 Blood Culture - Final, Complete NO GROWTH AFTER 5 DAYS Medication Medications Current Medications Info (Icu Electrolyte Protocol) 1 ea CONT PRN PRN MC PER PROTOCOL; Start 07/17/19 at 13:15 Midazolam HCl 100 mg/Sodium Chloride 100 ml @ 7 mls/hr CONT PRN IV SEE PROTOCOL Last administered on 07/17/19at 12:28; Start 07/16/19 at 16:00 Sodium Chloride 90 meq/Potassium Chloride 15 meq/ Potassium Phosphate 18 mmol/ M agnesium Sulfate 8 meq/Calcium Gluconate 15 meq/ Multivitamins 10 ml/Chromium/ Copper/Manganese/ Seleni/Zn 0.5 ml/ Insulin Human Regular 15 unit/ Total Parenteral Nutrition/Amino Acids/Dextrose/ Fat Emulsion Intravenous 1,400 ml @ 58.333 mls/ hr TPN CONT IV Last administered on 07/16/19at 20:34; Start 07/16/19 at 22:00; Stop 07/17/19 at 21:59 Sodium Chloride 90 meq/Potassium Chloride 15 meq/ Potassium Phosphate 18 mmol/ Magnesium Sulfate 8 meq/Calcium Gluconate 15 meq/ Multivitamins 10 ml/Chromium/ Copper/Manganese/ Seleni/Zn 0.5 ml/ Insulin Human Regular 15 unit/ Total Parenteral Nutrition/Amino Acids/Dextrose/ Fat Emulsion Intravenous 1,400 ml @ 58.333 mls/ hr TPN CONT IV ; Start 07/17/19 at 22:00; Stop 07/18/19 at 21:59 Comment Review of Relevant I have reviewed the following items kolby (where applicable) has been applied. ZANDER ZUÑIGA MD Jul 17, 2019 15:39
[2019-07-17 18:55] LABS: CALCIUM 7.8 mg/dL (8.5-10.1); CREATININE 1.3 mg/dL (0.6-1.0); GFR 43.5; MAGNESIUM 2.3 mg/dL (1.8-2.4); POTASSIUM 4.3 mmol/L (3.5-5.1)
[2019-07-17] MEDS: POTASSIUM CHLORIDE 15 MEQ in DIALYSIS SOLUTION BGK 0/2.5 5,000 ML IV SCH ×5 (20:07→20:08)
[2019-07-17] MEDS ORDERED: AMINO ACID IV SCH ×11 (22:00)
[2019-07-17] MEDS ORDERED: [UNRECOGNIZED DRUG - OTHER] IV SCH ×11 (22:00)
[2019-07-17] MEDS ORDERED: DEXTROSE 70% IV SCH ×11 (22:00)
[2019-07-17] MEDS ORDERED: TOTAL PARENTERAL NUTRITION IV SCH ×11 (22:00)
[2019-07-18] VITALS (28 sets, daily range): BP systolic 73–129; BP diastolic 48–91
[2019-07-18] MEDS: INSULIN LISPRO 300 UNITS/3 ML VIAL. SQ SCH ×5 (00:16→23:35)
[2019-07-18 00:20] LABS: CALCIUM 7.9 mg/dL (8.5-10.1); CREATININE 1.3 mg/dL (0.6-1.0); GFR 43.5; MAGNESIUM 2.3 mg/dL (1.8-2.4); POTASSIUM 4.4 mmol/L (3.5-5.1)
[2019-07-18] MEDS: POTASSIUM CHLORIDE 15 MEQ in DIALYSIS SOLUTION BGK 0/2.5 5,000 ML IV SCH ×20 (01:16→19:30)
[2019-07-18] MEDS: NOREPINEPHRINE VIAL 8 MG in IV DEXTROSE 5% 250 ML IV PRN ×2 (01:26→19:57)
[2019-07-18] MEDS: MIDAZOLAM HCL 100 MG in IV NORMAL SALINE 100ML 100 ML IV PRN ×2 (02:15→23:36)
[2019-07-18 06:03] LABS: CALCIUM 8.1 mg/dL (8.5-10.1); CREATININE 1.3 mg/dL (0.6-1.0); GFR 43.5; MAGNESIUM 2.4 mg/dL (1.8-2.4); PHOSPHORUS 2.9 mg/dL (2.6-4.7); POTASSIUM 4.3 mmol/L (3.5-5.1)
[2019-07-18 06:32] LABS: BASO # 0.2 x10^3/uL (0.0-0.2); BASO % 0 % (0-3); EOS # 0.5 x10^3/uL (0.0-0.7); EOS % 1 % (0-3); HEMOGLOBIN 7.3 g/dL (12.0-15.5); LYMPH % 9 % (24-48); MEAN CORPUSCULAR HEMOGLOBIN 33 pg (25-35); MEAN CORPUSCULAR HGB CONC 33 g/dL (31-37); MEAN CORPUSCULAR VOLUME 100 fL (79-100); MONO % 4 % (0-9); NEUT # 38.4 x10^3/uL (1.8-7.7); NEUT % 85 % (31-73); PLATELET COUNT 383 x10^3/uL (140-400); RED CELL DISTRIBUTION WIDTH 15.5 % (11.5-14.5)
[2019-07-18] MEDS: ALBUMIN HUMAN 5% 500 ML IV PRN ×2 (06:59→22:54)
--- NOTE | 2019-07-18 07:34 | RAD ---
CHEST AP ONLY History: Ventilator Comparison: July 17, 2019 Findings: Single view of the chest is submitted. There is enteric catheter coursing into the stomach. Endotracheal tube tip terminates laterally about 2 cm from shawanda, somewhat poorly visualized. There is right internal jugular venous catheter with the tip in superior aspect of the superior vena cava and right upper extremity PICC which is poorly visualized due to other overlying catheters. There is also left venous catheter with the tip likely near the cavoatrial junction. No pneumothorax is identified. There is again suspected at least small bilateral pleural effusions with adjacent airspace opacity of the mid to inferior hemithoraces bilaterally, some questionable slight improved aeration of the left lung base. Heart size is similar. There is again right infrahilar opacity which may be component of atelectasis. Impression: 1. There are persistent bilateral pleural effusions with adjacent airspace opacity, some questionable slight improved aeration left lung base. There are support catheters and tubes as stated. Electronically signed by: Bry Cruz MD (07/18/2019 7:31 AM) [facility]
[2019-07-18] MEDS: MINERAL OIL/PETROLATUM,WHITE OPHTH OINT 3.5GM TUBE. OU PRN (08:05)
[2019-07-18] MEDS: PANTOPRAZOLE IV PUSH 40 MG VIAL. IVP SCH (08:07)
[2019-07-18] MEDS: CEFEPIME HCL IV Push 2 GM VIAL. IVP SCH ×2 (08:11→21:00)
[2019-07-18] MEDS: MICAFUNGIN 100 MG in IV DEXTROSE 5% 100ML 100 ML IV SCH (08:31)
--- NOTE | 2019-07-18 08:31 | PDOC ---
PULMONARY PROGRESS NOTES Subjective No major events overnight, patient currently on norepinephrine TPN for nutrition Patient intubated on 07/10 , sedated Currently on assist control ventilation rate of 25 450 tidal volume 8 of PEEP currently undergoing CRRT Vitals Vital Signs Date Time Temp Pulse Resp B/P (MAP) Pulse Ox O2 Delivery O2 Flow Rate FiO2 07/18/19 08:00 99.8 121 25 98/78 (85) 99 Ventilator 99.8 HEENT: Other (nc at perrl bipap mask on neck no lad no thyromegaly) Lungs: Crackles Cardiovascular: S1, S2 Abdomen: Other (distended, diffuse pain no mass) Extremities: No Edema Skin: Warm Labs Laboratory Tests Test 07/16/19 11:30 07/16/19 11:45 07/16/19 17:47 07/16/19 17:48 Sodium Level 139 mmol/L (136-145) 138 mmol/L (136-145) Potassium Level 4.4 mmol/L (3.5-5.1) 4.6 mmol/L (3.5-5.1) Chloride Level 105 mmol/L (98-107) 105 mmol/L (98-107) Carbon Dioxide Level 28 mmol/L (21-32) 27 mmol/L (21-32) Anion Gap 6 (6-14) 6 (6-14) Blood Urea Nitrogen 38 mg/dL (7-20) 41 mg/dL (7-20) Creatinine 1.3 mg/dL (0.6-1.0) 1.4 mg/dL (0.6-1.0) Estimated GFR (Cockcroft-Gault) 43.5 40.0 Glucose Level 235 mg/dL (70-99) 233 mg/dL (70-99) Calcium Level 8.1 mg/dL (8.5-10.1) 8.0 mg/dL (8.5-10.1) Phosphorus Level 3.3 mg/dL (2.6-4.7) 3.6 mg/dL (2.6-4.7) Magnesium Level 2.2 mg/dL (1.8-2.4) 2.1 mg/dL (1.8-2.4) Glucose (Fingerstick) 231 mg/dL (70-99) 231 mg/dL (70-99) Test 07/16/19 23:30 07/17/19 05:40 07/17/19 05:41 07/17/19 09:15 Sodium Level 138 mmol/L (136-145) 138 mmol/L (136-145) Potassium Level 4.3 mmol/L (3.5-5.1) 4.6 mmol/L (3.5-5.1) Chloride Level 105 mmol/L (98-107) 105 mmol/L (98-107) Carbon Dioxide Level 26 mmol/L (21-32) 28 mmol/L (21-32) Anion Gap 7 (6-14) 5 (6-14) Blood Urea Nitrogen 38 mg/dL (7-20) 36 mg/dL (7-20) Creatinine 1.3 mg/dL (0.6-1.0) 1.3 mg/dL (0.6-1.0) Estimated GFR (Cockcroft-Gault) 43.5 43.5 Glucose Level 217 mg/dL (70-99) 202 mg/dL (70-99) Glucose (Fingerstick) 199 mg/dL (70-99) 189 mg/dL (70-99) Calcium Level 8.1 mg/dL (8.5-10.1) 8.2 mg/dL (8.5-10.1) Phosphorus Level 3.3 mg/dL (2.6-4.7) 3.5 mg/dL (2.6-4.7) Magnesium Level 2.3 mg/dL (1.8-2.4) 2.3 mg/dL (1.8-2.4) White Blood Count 38.7 x10^3/uL (4.0-11.0) Red Blood Count 2.10 x10^6/uL (3.50-5.40) Hemoglobin 6.8 g/dL (12.0-15.5) Hematocrit 20.7 % (36.0-47.0) Mean Corpuscular Volume 99 fL (79-100) Mean Corpuscular Hemoglobin 32 pg (25-35) Mean Corpuscular Hemoglobin Concent 33 g/dL (31-37) Red Cell Distribution Width 15.7 % (11.5-14.5) Platelet Count 319 x10^3/uL (140-400) Neutrophils (%) (Auto) 90 % (31-73) Lymphocytes (%) (Auto) 5 % (24-48) Monocytes (%) (Auto) 4 % (0-9) Eosinophils (%) (Auto) 1 % (0-3) Basophils (%) (Auto) 1 % (0-3) Neutrophils # (Auto) 34.7 x10^3/uL (1.8-7.7) Lymphocytes # (Auto) 1.9 x10^3/uL (1.0-4.8) Monocytes # (Auto) 1.4 x10^3/uL (0.0-1.1) Eosinophils # (Auto) 0.5 x10^3/uL (0.0-0.7) Basophils # (Auto) 0.2 x10^3/uL (0.0-0.2) O2 Saturation 92 % (92-99) Arterial Blood pH 7.38 (7.35-7.45) Arterial Blood pCO2 at Patient Temp 41 mmHg (35-46) Arterial Blood pO2 at Patient Temp 72 mmHg (75-108) Arterial Blood HCO3 23 mmol/L (21-28) Arterial Blood Base Excess -2 mmol/L (-3-3) FiO2 40 Test 07/17/19 12:10 07/17/19 13:00 07/17/19 17:45 07/17/19 18:25 Glucose (Fingerstick) 204 mg/dL (70-99) 206 mg/dL (70-99) Sodium Level 138 mmol/L (136-145) 138 mmol/L (136-145) Potassium Level 4.4 mmol/L (3.5-5.1) 4.3 mmol/L (3.5-5.1) Chloride Level 103 mmol/L (98-107) 105 mmol/L (98-107) Carbon Dioxide Level 27 mmol/L (21-32) 28 mmol/L (21-32) Anion Gap 8 (6-14) 5 (6-14) Blood Urea Nitrogen 34 mg/dL (7-20) 36 mg/dL (7-20) Creatinine 1.2 mg/dL (0.6-1.0) 1.3 mg/dL (0.6-1.0) Estimated GFR (Cockcroft-Gault) 47.7 43.5 Glucose Level 210 mg/dL (70-99) 211 mg/dL (70-99) Calcium Level 8.2 mg/dL (8.5-10.1) 7.8 mg/dL (8.5-10.1) Phosphorus Level 2.6 mg/dL (2.6-4.7) 2.8 mg/dL (2.6-4.7) Magnesium Level 2.3 mg/dL (1.8-2.4) 2.3 mg/dL (1.8-2.4) Test 07/17/19 23:50 07/18/19 00:04 07/18/19 05:30 07/18/19 05:35 Sodium Level 137 mmol/L (136-145) 136 mmol/L (136-145) Potassium Level 4.4 mmol/L (3.5-5.1) 4.3 mmol/L (3.5-5.1) Chloride Level 104 mmol/L (98-107) 103 mmol/L (98-107) Carbon Dioxide Level 27 mmol/L (21-32) 27 mmol/L (21-32) Anion Gap 6 (6-14) 6 (6-14) Blood Urea Nitrogen 37 mg/dL (7-20) 35 mg/dL (7-20) Creatinine 1.3 mg/dL (0.6-1.0) 1.3 mg/dL (0.6-1.0) Estimated GFR (Cockcroft-Gault) 43.5 43.5 Glucose Level 213 mg/dL (70-99) 204 mg/dL (70-99) Calcium Level 7.9 mg/dL (8.5-10.1) 8.1 mg/dL (8.5-10.1) Phosphorus Level 2.9 mg/dL (2.6-4.7) 2.9 mg/dL (2.6-4.7) Magnesium Level 2.3 mg/dL (1.8-2.4) 2.4 mg/dL (1.8-2.4) Glucose (Fingerstick) 177 mg/dL (70-99) 187 mg/dL (70-99) White Blood Count 45.0 x10^3/uL (4.0-11.0) Red Blood Count 2.20 x10^6/uL (3.50-5.40) Hemoglobin 7.3 g/dL (12.0-15.5) Hematocrit 22.0 % (36.0-47.0) Mean Corpuscular Volume 100 fL (79-100) Mean Corpuscular Hemoglobin 33 pg (25-35) Mean Corpuscular Hemoglobin Concent 33 g/dL (31-37) Red Cell Distribution Width 15.5 % (11.5-14.5) Platelet Count 383 x10^3/uL (140-400) Neutrophils (%) (Auto) 85 % (31-73) Lymphocytes (%) (Auto) 9 % (24-48) Monocytes (%) (Auto) 4 % (0-9) Eosinophils (%) (Auto) 1 % (0-3) Basophils (%) (Auto) 0 % (0-3) Neutrophils # (Auto) 38.4 x10^3/uL (1.8-7.7) Lymphocytes # (Auto) 4.0 x10^3/uL (1.0-4.8) Monocytes # (Auto) 2.0 x10^3/uL (0.0-1.1) Eosinophils # (Auto) 0.5 x10^3/uL (0.0-0.7) Basophils # (Auto) 0.2 x10^3/uL (0.0-0.2) Laboratory Tests Test 07/17/19 09:15 07/17/19 12:10 07/17/19 13:00 07/17/19 17:45 O2 Saturation 92 % (92-99) Arterial Blood pH 7.38 (7.35-7.45) Arterial Blood pCO2 at Patient Temp 41 mmHg (35-46) Arterial Blood pO2 at Patient Temp 72 mmHg (75-108) Arterial Blood HCO3 23 mmol/L (21-28) Arterial Blood Base Excess -2 mmol/L (-3-3) FiO2 40 Glucose (Fingerstick) 204 mg/dL (70-99) 206 mg/dL (70-99) Sodium Level 138 mmol/L (136-145) Potassium Level 4.4 mmol/L (3.5-5.1) Chloride Level 103 mmol/L (98-107) Carbon Dioxide Level 27 mmol/L (21-32) Anion Gap 8 (6-14) Blood Urea Nitrogen 34 mg/dL (7-20) Creatinine 1.2 mg/dL (0.6-1.0) Estimated GFR (Cockcroft-Gault) 47.7 Glucose Level 210 mg/dL (70-99) Calcium Level 8.2 mg/dL (8.5-10.1) Phosphorus Level 2.6 mg/dL (2.6-4.7) Magnesium Level 2.3 mg/dL (1.8-2.4) Test 07/17/19 18:25 07/17/19 23:50 07/18/19 00:04 07/18/19 05:30 Sodium Level 138 mmol/L (136-145) 137 mmol/L (136-145) 136 mmol/L (136-145) Potassium Level 4.3 mmol/L (3.5-5.1) 4.4 mmol/L (3.5-5.1) 4.3 mmol/L (3.5-5.1) Chloride Level 105 mmol/L (98-107) 104 mmol/L (98-107) 103 mmol/L (98-107) Carbon Dioxide Level 28 mmol/L (21-32) 27 mmol/L (21-32) 27 mmol/L (21-32) Anion Gap 5 (6-14) 6 (6-14) 6 (6-14) Blood Urea Nitrogen 36 mg/dL (7-20) 37 mg/dL (7-20) 35 mg/dL (7-20) Creatinine 1.3 mg/dL (0.6-1.0) 1.3 mg/dL (0.6-1.0) 1.3 mg/dL (0.6-1.0) Estimated GFR (Cockcroft-Gault) 43.5 43.5 43.5 Glucose Level 211 mg/dL (70-99) 213 mg/dL (70-99) 204 mg/dL (70-99) Calcium Level 7.8 mg/dL (8.5-10.1) 7.9 mg/dL (8.5-10.1) 8.1 mg/dL (8.5-10.1) Phosphorus Level 2.8 mg/dL (2.6-4.7) 2.9 mg/dL (2.6-4.7) 2.9 mg/dL (2.6-4.7) Magnesium Level 2.3 mg/dL (1.8-2.4) 2.3 mg/dL (1.8-2.4) 2.4 mg/dL (1.8-2.4) Glucose (Fingerstick) 177 mg/dL (70-99) White Blood Count 45.0 x10^3/uL (4.0-11.0) Red Blood Count 2.20 x10^6/uL (3.50-5.40) Hemoglobin 7.3 g/dL (12.0-15.5) Hematocrit 22.0 % (36.0-47.0) Mean Corpuscular Volume 100 fL (79-100) Mean Corpuscular Hemoglobin 33 pg (25-35) Mean Corpuscular Hemoglobin Concent 33 g/dL (31-37) Red Cell Distribution Width 15.5 % (11.5-14.5) Platelet Count 383 x10^3/uL (140-400) Neutrophils (%) (Auto) 85 % (31-73) Lymphocytes (%) (Auto) 9 % (24-48) Monocytes (%) (Auto) 4 % (0-9) Eosinophils (%) (Auto) 1 % (0-3) Basophils (%) (Auto) 0 % (0-3) Neutrophils # (Auto) 38.4 x10^3/uL (1.8-7.7) Lymphocytes # (Auto) 4.0 x10^3/uL (1.0-4.8) Monocytes # (Auto) 2.0 x10^3/uL (0.0-1.1) Eosinophils # (Auto) 0.5 x10^3/uL (0.0-0.7) Basophils # (Auto) 0.2 x10^3/uL (0.0-0.2) Test 07/18/19 05:35 Glucose (Fingerstick) 187 mg/dL (70-99) Medications Active Scripts Medications Dose Route/Sig Max Daily Dose Days Date Category Bisoprolol Fumarate 5 Mg Tablet 10 Mg PO DAILY 07/04/19 Reported Comments Chest x-ray Impression . IMPRESSION: 1. Acute hypoxemic respiratory failure secondary to ARDS due toacute pancreatitis, sepsic shock, abdominal distention, and pneumonia.and pleural effu sions. Pleural effusions secondary to abdominal process and/or general volume overload from renal failure. 2. Gallstone pancreatitis. WITH NECROSIS 3. Severe metabolic acidosis. 4. Acute kidney injury. ON CRRT 5. Acute gallstone pancreatitis. 6. Hypoalbuminemia. 7. Hypocalcemia. 8. Leukocytosis 9. Chronic anemia 10. Covid 19 testing negative Plan . Undergoing a repeat CT chest, abdomen, pelvis, Not ready for trial Cont AC mode , 40 FIO2/ 8 PEEP. Poor prognosis/ ARDS/septic shock supportive care CRRT Antibiotics per ID Follow nephrology input Nutritional support with TPN Prognosis is extremely poor d/w RN/ HARMEET BEE MD Jul 18, 2019 08:31
--- NOTE | 2019-07-18 08:59 | PDOC ---
Infectious Disease Note Subjective Subjective Intubated FiO2 30% No fevers last 24 hrs ROS ROS no n/v/d/ Vital Sign Vital Signs Vital Signs Date Time Temp Pulse Resp B/P (MAP) Pulse Ox O2 Delivery O2 Flow Rate FiO2 07/18/19 08:00 99.8 121 25 98/78 (85) 99 Ventilator 99.8 Physical Exam PHYSICAL EXAM GENERAL: Orally intubated/sedated - generalizd anasarca HEENT: Mild icterus, pupils equal, ETT, NGT NECK: Supple. LUNGS: Decreased breath sounds at the bases. HEART: S1, S2, regular ABDOMEN: Distended, hypoactive BS, Rectal tube in place : Lind EXTREMITIES: Generalized edema, no cyanosis - some mottling, Rooke boots bilaterally DERMATOLOGIC: Warm and dry. No generalized rash. CENTRAL NERVOUS SYSTEM: Sedated RIJ Temp HDC, RUE-PICC & LIJ - clean Labs Lab Laboratory Tests Test 07/17/19 09:15 07/17/19 12:10 07/17/19 13:00 07/17/19 17:45 O2 Saturation 92 % (92-99) Arterial Blood pH 7.38 (7.35-7.45) Arterial Blood pCO2 at Patient Temp 41 mmHg (35-46) Arterial Blood pO2 at Patient Temp 72 mmHg (75-108) Arterial Blood HCO3 23 mmol/L (21-28) Arterial Blood Base Excess -2 mmol/L (-3-3) FiO2 40 Glucose (Fingerstick) 204 mg/dL (70-99) 206 mg/dL (70-99) Sodium Level 138 mmol/L (136-145) Potassium Level 4.4 mmol/L (3.5-5.1) Chloride Level 103 mmol/L (98-107) Carbon Dioxide Level 27 mmol/L (21-32) Anion Gap 8 (6-14) Blood Urea Nitrogen 34 mg/dL (7-20) Creatinine 1.2 mg/dL (0.6-1.0) Estimated GFR (Cockcroft-Gault) 47.7 Glucose Level 210 mg/dL (70-99) Calcium Level 8.2 mg/dL (8.5-10.1) Phosphorus Level 2.6 mg/dL (2.6-4.7) Magnesium Level 2.3 mg/dL (1.8-2.4) Test 07/17/19 18:25 07/17/19 23:50 07/18/19 00:04 07/18/19 05:30 Sodium Level 138 mmol/L (136-145) 137 mmol/L (136-145) 136 mmol/L (136-145) Potassium Level 4.3 mmol/L (3.5-5.1) 4.4 mmol/L (3.5-5.1) 4.3 mmol/L (3.5-5.1) Chloride Level 105 mmol/L (98-107) 104 mmol/L (98-107) 103 mmol/L (98-107) Carbon Dioxide Level 28 mmol/L (21-32) 27 mmol/L (21-32) 27 mmol/L (21-32) Anion Gap 5 (6-14) 6 (6-14) 6 (6-14) Blood Urea Nitrogen 36 mg/dL (7-20) 37 mg/dL (7-20) 35 mg/dL (7-20) Creatinine 1.3 mg/dL (0.6-1.0) 1.3 mg/dL (0.6-1.0) 1.3 mg/dL (0.6-1.0) Estimated GFR (Cockcroft-Gault) 43.5 43.5 43.5 Glucose Level 211 mg/dL (70-99) 213 mg/dL (70-99) 204 mg/dL (70-99) Calcium Level 7.8 mg/dL (8.5-10.1) 7.9 mg/dL (8.5-10.1) 8.1 mg/dL (8.5-10.1) Phosphorus Level 2.8 mg/dL (2.6-4.7) 2.9 mg/dL (2.6-4.7) 2.9 mg/dL (2.6-4.7) Magnesium Level 2.3 mg/dL (1.8-2.4) 2.3 mg/dL (1.8-2.4) 2.4 mg/dL (1.8-2.4) Glucose (Fingerstick) 177 mg/dL (70-99) White Blood Count 45.0 x10^3/uL (4.0-11.0) Red Blood Count 2.20 x10^6/uL (3.50-5.40) Hemoglobin 7.3 g/dL (12.0-15.5) Hematocrit 22.0 % (36.0-47.0) Mean Corpuscular Volume 100 fL (79-100) Mean Corpuscular Hemoglobin 33 pg (25-35) Mean Corpuscular Hemoglobin Concent 33 g/dL (31-37) Red Cell Distribution Width 15.5 % (11.5-14.5) Platelet Count 383 x10^3/uL (140-400) Neutrophils (%) (Auto) 85 % (31-73) Lymphocytes (%) (Auto) 9 % (24-48) Monocytes (%) (Auto) 4 % (0-9) Eosinophils (%) (Auto) 1 % (0-3) Basophils (%) (Auto) 0 % (0-3) Neutrophils # (Auto) 38.4 x10^3/uL (1.8-7.7) Lymphocytes # (Auto) 4.0 x10^3/uL (1.0-4.8) Monocytes # (Auto) 2.0 x10^3/uL (0.0-1.1) Eosinophils # (Auto) 0.5 x10^3/uL (0.0-0.7) Basophils # (Auto) 0.2 x10^3/uL (0.0-0.2) Test 07/18/19 05:35 Glucose (Fingerstick) 187 mg/dL (70-99) Micro Microbiology 07/12/19 Blood Culture - Final, Complete NO GROWTH AFTER 5 DAYS Objective Assessment Leukocytosis - increased - ? reactive - trouble with CRRT/S/p PRBCs ? intra- abdominal Fever - better - Flu neg antigen 07/13 ? reactive with pancreatitis vs ID - C- diff neg. S/p HD cath change with malfunction 07/12 - cults 07/11 neg Lung opacities, COVID-19 neg Hypotension Acute pancreatitis, early developing necrosis -U/S 07/13 reviewed JUANA,Hyperkalemia, Metabolic acidosis on CRRT - s/p RIJ temporary dialysis catheter replacement, 07/12 Anasarca - worse Acute hypoxic resp failure, intubated ? developing peripheral ischemia - better Cholelithiasis Anemia - S/p PRBC 07/13 Hypocalcemia Prediabetes HTN Plan Plan of Care Continue Dapto/cefepime (07/12), Flagyl and micafungin (07/10) -Previously on Merrem, Zyvox F/u Blood cults 07/[address] ordered abd/pelvis but on CRRT will need when stable No surgical plans at this time Maintain aspiration precautions Airborne isolation d/c'd. COVID-19 neg Repeat CBC need ct chest, abd and pelvis D/w nursing Critically ill KIMMY JONES MD Jul 18, 2019 08:59
--- NOTE | 2019-07-18 09:26 | PDOC ---
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 [employer] 07/18/19 0926: SURGICAL PROGRESS NOTE Subjective d/w nursing, ID wbc rising plans for repeat CT Vital Signs Vital Signs Date Time Temp Pulse Resp B/P (MAP) Pulse Ox O2 Delivery O2 Flow Rate FiO2 07/18/19 08:00 99.8 121 25 98/78 (85) 99 Ventilator 99.8 I&O Intake and Output 07/18/19 07:00 Intake Total 2269 ml Output Total 490 ml Balance 1779 ml IV Total 2269 ml Output Urine Total 390 ml Gastric Drainage Total 100 ml General: Other (sedated ) HEENT: Other (vent) Abdomen: Other (firm abdomen) Labs Laboratory Tests Test 07/16/19 11:30 07/16/19 11:45 07/16/19 17:47 07/16/19 17:48 Sodium Level 139 mmol/L (136-145) 138 mmol/L (136-145) Potassium Level 4.4 mmol/L (3.5-5.1) 4.6 mmol/L (3.5-5.1) Chloride Level 105 mmol/L (98-107) 105 mmol/L (98-107) Carbon Dioxide Level 28 mmol/L (21-32) 27 mmol/L (21-32) Anion Gap 6 (6-14) 6 (6-14) Blood Urea Nitrogen 38 mg/dL (7-20) 41 mg/dL (7-20) Creatinine 1.3 mg/dL (0.6-1.0) 1.4 mg/dL (0.6-1.0) Estimated GFR (Cockcroft-Gault) 43.5 40.0 Glucose Level 235 mg/dL (70-99) 233 mg/dL (70-99) Calcium Level 8.1 mg/dL (8.5-10.1) 8.0 mg/dL (8.5-10.1) Phosphorus Level 3.3 mg/dL (2.6-4.7) 3.6 mg/dL (2.6-4.7) Magnesium Level 2.2 mg/dL (1.8-2.4) 2.1 mg/dL (1.8-2.4) Glucose (Fingerstick) 231 mg/dL (70-99) 231 mg/dL (70-99) Test 07/16/19 23:30 07/17/19 05:40 07/17/19 05:41 07/17/19 09:15 Sodium Level 138 mmol/L (136-145) 138 mmol/L (136-145) Potassium Level 4.3 mmol/L (3.5-5.1) 4.6 mmol/L (3.5-5.1) Chloride Level 105 mmol/L (98-107) 105 mmol/L (98-107) Carbon Dioxide Level 26 mmol/L (21-32) 28 mmol/L (21-32) Anion Gap 7 (6-14) 5 (6-14) Blood Urea Nitrogen 38 mg/dL (7-20) 36 mg/dL (7-20) Creatinine 1.3 mg/dL (0.6-1.0) 1.3 mg/dL (0.6-1.0) Estimated GFR (Cockcroft-Gault) 43.5 43.5 Glucose Level 217 mg/dL (70-99) 202 mg/dL (70-99) Glucose (Fingerstick) 199 mg/dL (70-99) 189 mg/dL (70-99) Calcium Level 8.1 mg/dL (8.5-10.1) 8.2 mg/dL (8.5-10.1) Phosphorus Level 3.3 mg/dL (2.6-4.7) 3.5 mg/dL (2.6-4.7) Magnesium Level 2.3 mg/dL (1.8-2.4) 2.3 mg/dL (1.8-2.4) White Blood Count 38.7 x10^3/uL (4.0-11.0) Red Blood Count 2.10 x10^6/uL (3.50-5.40) Hemoglobin 6.8 g/dL (12.0-15.5) Hematocrit 20.7 % (36.0-47.0) Mean Corpuscular Volume 99 fL (79-100) Mean Corpuscular Hemoglobin 32 pg (25-35) Mean Corpuscular Hemoglobin Concent 33 g/dL (31-37) Red Cell Distribution Width 15.7 % (11.5-14.5) Platelet Count 319 x10^3/uL (140-400) Neutrophils (%) (Auto) 90 % (31-73) Lymphocytes (%) (Auto) 5 % (24-48) Monocytes (%) (Auto) 4 % (0-9) Eosinophils (%) (Auto) 1 % (0-3) Basophils (%) (Auto) 1 % (0-3) Neutrophils # (Auto) 34.7 x10^3/uL (1.8-7.7) Lymphocytes # (Auto) 1.9 x10^3/uL (1.0-4.8) Monocytes # (Auto) 1.4 x10^3/uL (0.0-1.1) Eosinophils # (Auto) 0.5 x10^3/uL (0.0-0.7) Basophils # (Auto) 0.2 x10^3/uL (0.0-0.2) O2 Saturation 92 % (92-99) Arterial Blood pH 7.38 (7.35-7.45) Arterial Blood pCO2 at Patient Temp 41 mmHg (35-46) Arterial Blood pO2 at Patient Temp 72 mmHg (75-108) Arterial Blood HCO3 23 mmol/L (21-28) Arterial Blood Base Excess -2 mmol/L (-3-3) FiO2 40 Test 07/17/19 12:10 07/17/19 13:00 07/17/19 17:45 07/17/19 18:25 Glucose (Fingerstick) 204 mg/dL (70-99) 206 mg/dL (70-99) Sodium Level 138 mmol/L (136-145) 138 mmol/L (136-145) Potassium Level 4.4 mmol/L (3.5-5.1) 4.3 mmol/L (3.5-5.1) Chloride Level 103 mmol/L (98-107) 105 mmol/L (98-107) Carbon Dioxide Level 27 mmol/L (21-32) 28 mmol/L (21-32) Anion Gap 8 (6-14) 5 (6-14) Blood Urea Nitrogen 34 mg/dL (7-20) 36 mg/dL (7-20) Creatinine 1.2 mg/dL (0.6-1.0) 1.3 mg/dL (0.6-1.0) Estimated GFR (Cockcroft-Gault) 47.7 43.5 Glucose Level 210 mg/dL (70-99) 211 mg/dL (70-99) Calcium Level 8.2 mg/dL (8.5-10.1) 7.8 mg/dL (8.5-10.1) Phosphorus Level 2.6 mg/dL (2.6-4.7) 2.8 mg/dL (2.6-4.7) Magnesium Level 2.3 mg/dL (1.8-2.4) 2.3 mg/dL (1.8-2.4) Test 07/17/19 23:50 07/18/19 00:04 07/18/19 05:30 07/18/19 05:35 Sodium Level 137 mmol/L (136-145) 136 mmol/L (136-145) Potassium Level 4.4 mmol/L (3.5-5.1) 4.3 mmol/L (3.5-5.1) Chloride Level 104 mmol/L (98-107) 103 mmol/L (98-107) Carbon Dioxide Level 27 mmol/L (21-32) 27 mmol/L (21-32) Anion Gap 6 (6-14) 6 (6-14) Blood Urea Nitrogen 37 mg/dL (7-20) 35 mg/dL (7-20) Creatinine 1.3 mg/dL (0.6-1.0) 1.3 mg/dL (0.6-1.0) Estimated GFR (Cockcroft-Gault) 43.5 43.5 Glucose Level 213 mg/dL (70-99) 204 mg/dL (70-99) Calcium Level 7.9 mg/dL (8.5-10.1) 8.1 mg/dL (8.5-10.1) Phosphorus Level 2.9 mg/dL (2.6-4.7) 2.9 mg/dL (2.6-4.7) Magnesium Level 2.3 mg/dL (1.8-2.4) 2.4 mg/dL (1.8-2.4) Glucose (Fingerstick) 177 mg/dL (70-99) 187 mg/dL (70-99) White Blood Count 45.0 x10^3/uL (4.0-11.0) Red Blood Count 2.20 x10^6/uL (3.50-5.40) Hemoglobin 7.3 g/dL (12.0-15.5) Hematocrit 22.0 % (36.0-47.0) Mean Corpuscular Volume 100 fL (79-100) Mean Corpuscular Hemoglobin 33 pg (25-35) Mean Corpuscular Hemoglobin Concent 33 g/dL (31-37) Red Cell Distribution Width 15.5 % (11.5-14.5) Platelet Count 383 x10^3/uL (140-400) Neutrophils (%) (Auto) 85 % (31-73) Lymphocytes (%) (Auto) 9 % (24-48) Monocytes (%) (Auto) 4 % (0-9) Eosinophils (%) (Auto) 1 % (0-3) Basophils (%) (Auto) 0 % (0-3) Neutrophils # (Auto) 38.4 x10^3/uL (1.8-7.7) Lymphocytes # (Auto) 4.0 x10^3/uL (1.0-4.8) Monocytes # (Auto) 2.0 x10^3/uL (0.0-1.1) Eosinophils # (Auto) 0.5 x10^3/uL (0.0-0.7) Basophils # (Auto) 0.2 x10^3/uL (0.0-0.2) Laboratory Tests Test 07/17/19 12:10 07/17/19 13:00 07/17/19 17:45 07/17/19 18:25 Glucose (Fingerstick) 204 mg/dL (70-99) 206 mg/dL (70-99) Sodium Level 138 mmol/L (136-145) 138 mmol/L (136-145) Potassium Level 4.4 mmol/L (3.5-5.1) 4.3 mmol/L (3.5-5.1) Chloride Level 103 mmol/L (98-107) 105 mmol/L (98-107) Carbon Dioxide Level 27 mmol/L (21-32) 28 mmol/L (21-32) Anion Gap 8 (6-14) 5 (6-14) Blood Urea Nitrogen 34 mg/dL (7-20) 36 mg/dL (7-20) Creatinine 1.2 mg/dL (0.6-1.0) 1.3 mg/dL (0.6-1.0) Estimated GFR (Cockcroft-Gault) 47.7 43.5 Glucose Level 210 mg/dL (70-99) 211 mg/dL (70-99) Calcium Level 8.2 mg/dL (8.5-10.1) 7.8 mg/dL (8.5-10.1) Phosphorus Level 2.6 mg/dL (2.6-4.7) 2.8 mg/dL (2.6-4.7) Magnesium Level 2.3 mg/dL (1.8-2.4) 2.3 mg/dL (1.8-2.4) Test 07/17/19 23:50 07/18/19 00:04 07/18/19 05:30 07/18/19 05:35 Sodium Level 137 mmol/L (136-145) 136 mmol/L (136-145) Potassium Level 4.4 mmol/L (3.5-5.1) 4.3 mmol/L (3.5-5.1) Chloride Level 104 mmol/L (98-107) 103 mmol/L (98-107) Carbon Dioxide Level 27 mmol/L (21-32) 27 mmol/L (21-32) Anion Gap 6 (6-14) 6 (6-14) Blood Urea Nitrogen 37 mg/dL (7-20) 35 mg/dL (7-20) Creatinine 1.3 mg/dL (0.6-1.0) 1.3 mg/dL (0.6-1.0) Estimated GFR (Cockcroft-Gault) 43.5 43.5 Glucose Level 213 mg/dL (70-99) 204 mg/dL (70-99) Calcium Level 7.9 mg/dL (8.5-10.1) 8.1 mg/dL (8.5-10.1) Phosphorus Level 2.9 mg/dL (2.6-4.7) 2.9 mg/dL (2.6-4.7) Magnesium Level 2.3 mg/dL (1.8-2.4) 2.4 mg/dL (1.8-2.4) Glucose (Fingerstick) 177 mg/dL (70-99) 187 mg/dL (70-99) White Blood Count 45.0 x10^3/uL (4.0-11.0) Red Blood Count 2.20 x10^6/uL (3.50-5.40) Hemoglobin 7.3 g/dL (12.0-15.5) Hematocrit 22.0 % (36.0-47.0) Mean Corpuscular Volume 100 fL (79-100) Mean Corpuscular Hemoglobin 33 pg (25-35) Mean Corpuscular Hemoglobin Concent 33 g/dL (31-37) Red Cell Distribution Width 15.5 % (11.5-14.5) Platelet Count 383 x10^3/uL (140-400) Neutrophils (%) (Auto) 85 % (31-73) Lymphocytes (%) (Auto) 9 % (24-48) Monocytes (%) (Auto) 4 % (0-9) Eosinophils (%) (Auto) 1 % (0-3) Basophils (%) (Auto) 0 % (0-3) Neutrophils # (Auto) 38.4 x10^3/uL (1.8-7.7) Lymphocytes # (Auto) 4.0 x10^3/uL (1.0-4.8) Monocytes # (Auto) 2.0 x10^3/uL (0.0-1.1) Eosinophils # (Auto) 0.5 x10^3/uL (0.0-0.7) Basophils # (Auto) 0.2 x10^3/uL (0.0-0.2) Problem List Problems Medical Problems: (1) Acute pancreatitis Status: Acute (2) Cholelithiasis Status: Acute Assessment/Plan CT planned await results, concern for pseudocyst--very poor surgical candidate DAVON SIMMS MD 07/18/19 1248: SURGICAL PROGRESS NOTE Assessment/Plan Pt seen and examined. Agree with Ms. Horton's note Pt intubated and sedated. Remains critical. abd distended, NTTP agree with CT when possible. Remains poor surgical candidate. 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 APRN Jul 18, 2019 09:26 DAVON SIMMS MD Jul 18, 2019 12:48
[2019-07-18 10:30] LABS: % BANDS 19 % (0-9); % EOS 1 % (0-5); % LYMPHS 6 % (24-48); % MONOS 5 % (0-10); % MYELOS 1 % (0-0); % SEGS 68 % (35-66); NUCLEATED RBC 4; PLT ESTIMATE ADEQUATE (ADEQUATE)
[2019-07-18 10:31] LABS: ANISOCYTOSIS SLIGHT; POLYCHROMASIA PRESENT; TOXIC GRANULATION PRESENT
--- NOTE | 2019-07-18 11:21 | PDOC ---
Renal-Progress Notes Subjective Notes Notes ON THE VENT History of Present Illness Hx of present illness CRITICALLY ILL Vitals Vitals Vital Signs Date Time Temp Pulse Resp B/P (MAP) Pulse Ox O2 Delivery O2 Flow Rate FiO2 07/18/19 11:00 114 24 102/62 (75) 100 Ventilator 07/18/19 08:00 99.8 99.8 Weight Weight [ ] I.O. Intake and Output Intake and Output 07/18/19 07:00 Intake Total 2269 ml Output Total 490 ml Balance 1779 ml IV Total 2269 ml Output Urine Total 390 ml Gastric Drainage Total 100 ml Labs Labs Laboratory Tests Test 07/17/19 12:10 07/17/19 13:00 07/17/19 17:45 07/17/19 18:25 Glucose (Fingerstick) 204 mg/dL (70-99) 206 mg/dL (70-99) Sodium Level 138 mmol/L (136-145) 138 mmol/L (136-145) Potassium Level 4.4 mmol/L (3.5-5.1) 4.3 mmol/L (3.5-5.1) Chloride Level 103 mmol/L (98-107) 105 mmol/L (98-107) Carbon Dioxide Level 27 mmol/L (21-32) 28 mmol/L (21-32) Anion Gap 8 (6-14) 5 (6-14) Blood Urea Nitrogen 34 mg/dL (7-20) 36 mg/dL (7-20) Creatinine 1.2 mg/dL (0.6-1.0) 1.3 mg/dL (0.6-1.0) Estimated GFR (Cockcroft-Gault) 47.7 43.5 Glucose Level 210 mg/dL (70-99) 211 mg/dL (70-99) Calcium Level 8.2 mg/dL (8.5-10.1) 7.8 mg/dL (8.5-10.1) Phosphorus Level 2.6 mg/dL (2.6-4.7) 2.8 mg/dL (2.6-4.7) Magnesium Level 2.3 mg/dL (1.8-2.4) 2.3 mg/dL (1.8-2.4) Test 07/17/19 23:50 07/18/19 00:04 07/18/19 05:30 07/18/19 05:35 Sodium Level 137 mmol/L (136-145) 136 mmol/L (136-145) Potassium Level 4.4 mmol/L (3.5-5.1) 4.3 mmol/L (3.5-5.1) Chloride Level 104 mmol/L (98-107) 103 mmol/L (98-107) Carbon Dioxide Level 27 mmol/L (21-32) 27 mmol/L (21-32) Anion Gap 6 (6-14) 6 (6-14) Blood Urea Nitrogen 37 mg/dL (7-20) 35 mg/dL (7-20) Creatinine 1.3 mg/dL (0.6-1.0) 1.3 mg/dL (0.6-1.0) Estimated GFR (Cockcroft-Gault) 43.5 43.5 Glucose Level 213 mg/dL (70-99) 204 mg/dL (70-99) Calcium Level 7.9 mg/dL (8.5-10.1) 8.1 mg/dL (8.5-10.1) Phosphorus Level 2.9 mg/dL (2.6-4.7) 2.9 mg/dL (2.6-4.7) Magnesium Level 2.3 mg/dL (1.8-2.4) 2.4 mg/dL (1.8-2.4) Glucose (Fingerstick) 177 mg/dL (70-99) 187 mg/dL (70-99) White Blood Count 45.0 x10^3/uL (4.0-11.0) Red Blood Count 2.20 x10^6/uL (3.50-5.40) Hemoglobin 7.3 g/dL (12.0-15.5) Hematocrit 22.0 % (36.0-47.0) Mean Corpuscular Volume 100 fL (79-100) Mean Corpuscular Hemoglobin 33 pg (25-35) Mean Corpuscular Hemoglobin Concent 33 g/dL (31-37) Red Cell Distribution Width 15.5 % (11.5-14.5) Platelet Count 383 x10^3/uL (140-400) Neutrophils (%) (Auto) 85 % (31-73) Lymphocytes (%) (Auto) 9 % (24-48) Monocytes (%) (Auto) 4 % (0-9) Eosinophils (%) (Auto) 1 % (0-3) Basophils (%) (Auto) 0 % (0-3) Neutrophils # (Auto) 38.4 x10^3/uL (1.8-7.7) Lymphocytes # (Auto) 4.0 x10^3/uL (1.0-4.8) Monocytes # (Auto) 2.0 x10^3/uL (0.0-1.1) Eosinophils # (Auto) 0.5 x10^3/uL (0.0-0.7) Basophils # (Auto) 0.2 x10^3/uL (0.0-0.2) Segmented Neutrophils % 68 % (35-66) Band Neutrophils % 19 % (0-9) Lymphocytes % 6 % (24-48) Monocytes % 5 % (0-10) Eosinophils % 1 % (0-5) Myelocytes % 1 % (0-0) Nucleated Red Blood Cells 4 Toxic Granulation Present Platelet Estimate Adequate (ADEQUATE) Large Platelets Present Polychromasia Present Anisocytosis Slight Macrocytosis Present Micro Micro Microbiology 07/12/19 Blood Culture - Final, Complete NO GROWTH AFTER 5 DAYS Review of Systems Constitutional: yes: other (ON THE VENT) Physical Exam General Appearance: moderate distress, other (ON THE VENT) Skin: warm Respiratory: decreased breath sounds Heart: S1S2 Abdomen: soft, bowel sounds present Genitourinary: bladder flat Extremities: pulses present Neurology: other (SEDATED) Assessment Assessment IMP [id number] OF 1.3 ON CRRT LEUCOCYTOSIS HYPERKALEMIA-RESOLVED ACIDOSIS AND ACIDEMIA-CONTROLLED ACUTE REPS FAILURE ACUTE PANCREATITIS HYPOALBUMINEMIA HYPOCALCEMIA-BETTER PLAN TPN CONT WITH CRRT-CHANGE PFR TO ZERO CONT SAME RF AND DIALYSATE CT PENDING VENT SUPPORT PRESSORS NEEDED ANTIBIOTICS WILL FOLLOW DONI GARCIA MD Jul 18, 2019 11:21
--- NOTE | 2019-07-18 11:23 | PDOC ---
[facility] PROGRESS NOTE Chief Complaint Chief Complaint Respiratory failure requiring mechanical ventilation Severe Acute pancreatitis Acute kidney failure now requiring dialysis Salpingo--itis Gallstones (Calculus of gallbladder with acute cholecystitis without obstruction) HTN Leukocytosis Hypoxia Uterine fibroid Hypoxia with respiratory failure Intractable pain Intractable nausea Possible Covid 19? History of Present Illness History of Present Illness [id number] Patient seen and examined in the ICU She remains very critically ill Going for a CT of the abdomen chest and pelvis Ventilated : On assist control 40% FiO2 Discussed with RN Chart reviewed [id number] Patient seen and examined in the ICU She is still on CRRT although we plan to change to hemodialysis soon Chart reviewed Discussed with RN Hemoglobin down to 6.9 (suspect CRRT related , Will let nephrology consider transfusion while on dialysis) [id number] Patient seen and examined in the ICU She is mechanically ventilated Before meals/25/450/30% Also on CRRT Very critically ill Chart reviewed Discussed with RN [id number] Patient seen and examined in the ICU She is now been transferred to the Covid 19 unit so we can rule out Covid and keep her in isolation Very critically ill Intubated and ventilated Assist control 40% Chart reviewed Discussed with RN Still on CRRT Getting a chest x-ray now Very concerned about her prognosis [id number] Patient seen and examined in the ICU She is extremely critically ill Remains mechanically ventilated with assist control/25/450/40% Also on continuous renal replacement therapy Chart reviewed Discussed with RN She has TPN hanging Also on pressors [id number] Patient seen and examined in the ICU She is still requiring CRRT On the vent with assist control but her FiO2 is down to 40% from yesterday Slightly better but still very critically ill Discussed with RN Chart reviewed [id number] Patient seen and examined in the ICU She remains extremely critically ill On IV fentanyl IV Versed IV Doxy On the vent Assist-control/25/450/70% She is critically ill Discussed with RN Chart reviewed Patient is currently on CRRT as well [id number] Patient seen and examined in the ICU She had to be intubated this morning On assist-control 25/450/100% with 10 of PEEP and only satting 87% She is extremely critically ill I'm not sure if she will survive Chart reviewed Discussed with RN Ms Diaz is a 48yo F w/ PMHx HTN, prediabetes who presents the emergency room complaints of abdominal pain. Patient described off and on 3 days. She states is constant, described as a squeezing sensation in a band-like distribution. + nausea, vomiting. She denies any fever or diarrhea. Patient denies any abdominal surgical procedures. She states is worse with movements, car ride. Pain initially was upper abdomen however now pretty much generalized. Last bowel movement was 07/03/2019. Nothing makes her pain better. Patient denies any shortness of breath. She does state the pain moves into her chest. Denies any headache or visual changes. Lipase 49301, AST 401, ALT 249, Bilirubin 1.4. CT abdomen confirms pancreatic inflammation, peripancreatic fluid and inflammatory changes around the pancreas consistent with pancreatitis. C holelithiasis and 1.4cm uterine fibroid as well as possible left salpingitis. Admitted for further care GI, General surgery, ID, Pulm consulted. 07/04: Overnight per report no urine output. Added dilaudid for pain, PICC placed per IR. Renal US negative.Seen bedside in ICU, given 2L additional NSS and albumin infusion. Still hypotensive, started on levophed. Repeat CT abdomen with necrosis. Updated her fiancee 07/05: Sats are only 87% on nasal cannula oxygen. Dialysis catheter per nephrology 07/06: She is now on BiPAP appears more ill, now on dialysis 07/07: Seen on BiPAP. Her mother and another family member are present and seemed to be good support for her. Currently on dialysis. Appears critically ill 07/08: Overnight Tmax 101.7 , still on BiPAP FiO2 40%, still on low dose Levophed gtt, TPN initiated. On dialysis Overnight still febrile. Dialysis today. She wakes up and responds to pain. No CP. Vitals/I&O Vitals/I&O: Vital Signs Date Time Temp Pulse Resp B/P (MAP) Pulse Ox O2 Delivery O2 Flow Rate FiO2 07/18/19 11:00 114 24 102/62 (75) 100 Ventilator 07/18/19 08:00 99.8 99.8 I & O 07/17/19 07/17/19 07/18/19 14:59 22:59 06:59 Intake Total 250 ml 954 ml 1065 ml Output Total 185 ml 125 ml 195 ml Balance 65 ml 829 ml 870 ml Physical Exam Physical Exam: GENERAL: Orally intubated/sedated - generalizd anasarca HEENT: Mild icterus, pupils equal, ETT, NGT NECK: Supple. LUNGS: Decreased breath sounds at the bases. HEART: S1, S2, regular ABDOMEN: Distended, hypoactive BS, Rectal tube in place : Lind EXTREMITIES: Generalized edema, no cyanosis - some mottling, Rooke boots bilaterally DERMATOLOGIC: Warm and dry. No generalized rash. CENTRAL NERVOUS SYSTEM: Sedated RIJ Temp HDC, RUE-PICC & LIJ - clean General: Other (sedated ) Heart: Other (increased rate) Lungs: Crackles Abdomen: Other (firm abdomen) Extremities: No edema, Other (SOME CLUBBING ) Skin: Other (mottling noted to extremities ) Labs Labs: Laboratory Tests Test 07/17/19 12:10 07/17/19 13:00 07/17/19 17:45 07/17/19 18:25 Glucose (Fingerstick) 204 mg/dL (70-99) 206 mg/dL (70-99) Sodium Level 138 mmol/L (136-145) 138 mmol/L (136-145) Potassium Level 4.4 mmol/L (3.5-5.1) 4.3 mmol/L (3.5-5.1) Chloride Level 103 mmol/L (98-107) 105 mmol/L (98-107) Carbon Dioxide Level 27 mmol/L (21-32) 28 mmol/L (21-32) Anion Gap 8 (6-14) 5 (6-14) Blood Urea Nitrogen 34 mg/dL (7-20) 36 mg/dL (7-20) Creatinine 1.2 mg/dL (0.6-1.0) 1.3 mg/dL (0.6-1.0) Estimated GFR (Cockcroft-Gault) 47.7 43.5 Glucose Level 210 mg/dL (70-99) 211 mg/dL (70-99) Calcium Level 8.2 mg/dL (8.5-10.1) 7.8 mg/dL (8.5-10.1) Phosphorus Level 2.6 mg/dL (2.6-4.7) 2.8 mg/dL (2.6-4.7) Magnesium Level 2.3 mg/dL (1.8-2.4) 2.3 mg/dL (1.8-2.4) Test 07/17/19 23:50 07/18/19 00:04 07/18/19 05:30 07/18/19 05:35 Sodium Level 137 mmol/L (136-145) 136 mmol/L (136-145) Potassium Level 4.4 mmol/L (3.5-5.1) 4.3 mmol/L (3.5-5.1) Chloride Level 104 mmol/L (98-107) 103 mmol/L (98-107) Carbon Dioxide Level 27 mmol/L (21-32) 27 mmol/L (21-32) Anion Gap 6 (6-14) 6 (6-14) Blood Urea Nitrogen 37 mg/dL (7-20) 35 mg/dL (7-20) Creatinine 1.3 mg/dL (0.6-1.0) 1.3 mg/dL (0.6-1.0) Estimated GFR (Cockcroft-Gault) 43.5 43.5 Glucose Level 213 mg/dL (70-99) 204 mg/dL (70-99) Calcium Level 7.9 mg/dL (8.5-10.1) 8.1 mg/dL (8.5-10.1) Phosphorus Level 2.9 mg/dL (2.6-4.7) 2.9 mg/dL (2.6-4.7) Magnesium Level 2.3 mg/dL (1.8-2.4) 2.4 mg/dL (1.8-2.4) Glucose (Fingerstick) 177 mg/dL (70-99) 187 mg/dL (70-99) White Blood Count 45.0 x10^3/uL (4.0-11.0) Red Blood Count 2.20 x10^6/uL (3.50-5.40) Hemoglobin 7.3 g/dL (12.0-15.5) Hematocrit 22.0 % (36.0-47.0) Mean Corpuscular Volume 100 fL (79-100) Mean Corpuscular Hemoglobin 33 pg (25-35) Mean Corpuscular Hemoglobin Concent 33 g/dL (31-37) Red Cell Distribution Width 15.5 % (11.5-14.5) Platelet Count 383 x10^3/uL (140-400) Neutrophils (%) (Auto) 85 % (31-73) Lymphocytes (%) (Auto) 9 % (24-48) Monocytes (%) (Auto) 4 % (0-9) Eosinophils (%) (Auto) 1 % (0-3) Basophils (%) (Auto) 0 % (0-3) Neutrophils # (Auto) 38.4 x10^3/uL (1.8-7.7) Lymphocytes # (Auto) 4.0 x10^3/uL (1.0-4.8) Monocytes # (Auto) 2.0 x10^3/uL (0.0-1.1) Eosinophils # (Auto) 0.5 x10^3/uL (0.0-0.7) Basophils # (Auto) 0.2 x10^3/uL (0.0-0.2) Segmented Neutrophils % 68 % (35-66) Band Neutrophils % 19 % (0-9) Lymphocytes % 6 % (24-48) Monocytes % 5 % (0-10) Eosinophils % 1 % (0-5) Myelocytes % 1 % (0-0) Nucleated Red Blood Cells 4 Toxic Granulation Present Platelet Estimate Adequate (ADEQUATE) Large Platelets Present Polychromasia Present Anisocytosis Slight Macrocytosis Present Review of Systems Review of Systems: Unable to obtain Assessment and Plan Assessmemt and Plan Problems Medical Problems: (1) Acute pancreatitis Status: Acute (2) Cholelithiasis Status: Acute Respiratory failure requiring intubation Severe Acute pancreatitis Acute kidney failure now requiring dialysis Salpingo--itis Gallstones (Calculus of gallbladder with acute cholecystitis without obstruction) HTN Leukocytosis Hypoxia Uterine fibroid Hypoxia with respiratory failure Intractable pain Intractable nausea Plan CRRT but we are changing to hemodialysis Mechanical ventilation ICU monitoring Going for CT of the chest abdomen and pelvis today When necessary transfusions Trend labs especially white count and lipase levels We have consulted GI and general surgery Appreciate pulmonary assistance as well IV antibiotics IV fluids DC narcotics When necessary anti-medics Home meds if possible DVT prophylaxis Full code She is critically ill Total time 32 minutes Comment Review of Relevant I have reviewed the following items kolby (where applicable) has been applied. Medications: Current Medications Medications (Trade) Dose Ordered Sig/Yvon Route PRN Reason Start Time Stop Time Status Last Admin Dose Admin Sodium Chloride 90 meq/Potassium Chloride 15 meq/ Potassium Phosphate 18 mmol/ Magnesium Sulfate 8 meq/Calcium Gluconate 15 meq/ Multivitamins 10 ml/Chromium/ Copper/Manganese/ Seleni/Zn 0.5 ml/ Insulin Human Regular 15 unit/ Total Parenteral Nutrition/Amino Acids/Dextrose/ Fat Emulsion Intravenous 1,400 ml @ 58.333 mls/ hr TPN CONT IV 07/17/19 22:00 07/18/19 21:59 07/17/19 22:05 Potassium Chloride 15 meq/ Bicarbonate Dialysis Soln w/ out KCl 5,007.5 ml @ 1,000 mls/ hr Q5H1M IV 07/17/19 20:00 07/18/19 06:06 Potassium Chloride 15 meq/ Bicarbonate Dialysis Soln w/ out KCl 5,007.5 ml @ 1,000 mls/ hr Q5H1M IV 07/17/19 20:00 07/18/19 06:07 Potassium Chloride 15 meq/ Bicarbonate Dialysis Soln w/ out KCl 5,007.5 ml @ 1,000 mls/ hr Q5H1M IV 07/17/19 20:00 07/18/19 06:06 Hemodynamically unstable?: Yes Is patient in severe pain?: Yes Is NPO status required?: Yes BEBO KIRBY III DO Jul 18, 2019 11:22
--- NOTE | 2019-07-18 11:23 | PDOC ---
Objective: Objective: COVID-[address] C/A/P ordered. Vital Signs: Vital Signs Date Time Temp Pulse Resp B/P (MAP) Pulse Ox O2 Delivery O2 Flow Rate FiO2 07/18/19 11:00 114 24 102/62 (75) 100 Ventilator 07/18/19 08:00 99.8 99.8 Labs: Laboratory Tests Test 07/17/19 12:10 07/17/19 13:00 07/17/19 17:45 07/17/19 18:25 Glucose (Fingerstick) 204 mg/dL 206 mg/dL Sodium Level 138 mmol/L 138 mmol/L Potassium Level 4.4 mmol/L 4.3 mmol/L Chloride Level 103 mmol/L 105 mmol/L Carbon Dioxide Level 27 mmol/L 28 mmol/L Anion Gap 8 5 Blood Urea Nitrogen 34 mg/dL 36 mg/dL Creatinine 1.2 mg/dL 1.3 mg/dL Estimated GFR (Cockcroft-Gault) 47.7 43.5 Glucose Level 210 mg/dL 211 mg/dL Calcium Level 8.2 mg/dL 7.8 mg/dL Phosphorus Level 2.6 mg/dL 2.8 mg/dL Magnesium Level 2.3 mg/dL 2.3 mg/dL Test 07/17/19 23:50 07/18/19 00:04 07/18/19 05:30 07/18/19 05:35 Sodium Level 137 mmol/L 136 mmol/L Potassium Level 4.4 mmol/L 4.3 mmol/L Chloride Level 104 mmol/L 103 mmol/L Carbon Dioxide Level 27 mmol/L 27 mmol/L Anion Gap 6 6 Blood Urea Nitrogen 37 mg/dL 35 mg/dL Creatinine 1.3 mg/dL 1.3 mg/dL Estimated GFR (Cockcroft-Gault) 43.5 43.5 Glucose Level 213 mg/dL 204 mg/dL Calcium Level 7.9 mg/dL 8.1 mg/dL Phosphorus Level 2.9 mg/dL 2.9 mg/dL Magnesium Level 2.3 mg/dL 2.4 mg/dL Glucose (Fingerstick) 177 mg/dL 187 mg/dL White Blood Count 45.0 x10^3/uL Red Blood Count 2.20 x10^6/uL Hemoglobin 7.3 g/dL Hematocrit 22.0 % Mean Corpuscular Volume 100 fL Mean Corpuscular Hemoglobin 33 pg Mean Corpuscular Hemoglobin Concent 33 g/dL Red Cell Distribution Width 15.5 % Platelet Count 383 x10^3/uL Neutrophils (%) (Auto) 85 % Lymphocytes (%) (Auto) 9 % Monocytes (%) (Auto) 4 % Eosinophils (%) (Auto) 1 % Basophils (%) (Auto) 0 % Neutrophils # (Auto) 38.4 x10^3/uL Lymphocytes # (Auto) 4.0 x10^3/uL Monocytes # (Auto) 2.0 x10^3/uL Eosinophils # (Auto) 0.5 x10^3/uL Basophils # (Auto) 0.2 x10^3/uL Segmented Neutrophils % 68 % Band Neutrophils % 19 % Lymphocytes % 6 % Monocytes % 5 % Eosinophils % 1 % Myelocytes % 1 % Nucleated Red Blood Cells 4 Toxic Granulation Present Platelet Estimate Adequate Large Platelets Present Polychromasia Present Anisocytosis Slight Macrocytosis Present Imaging: CXR 07/17 Impression: 1. There are persistent bilateral pleural effusions with adjacent airspace opacity, some questionable slight improved aeration left lung base. There are support catheters and tubes as stated. PE: GEN: intubated, dialyzing LUNGS: vent, clear HEART: tachycardic ABD: firm, rectal tube dark liquid, NG bilious NEURO/PSYCH: sedated A/P: Gallstone pancreatitis, MOSF Leukocytosis - WBC 45 -- CT odered, await this. Hemodynamically unstable?: Yes Is patient in severe pain?: Yes Is NPO status required?: Yes CYNDEE FALCON Jul 18, 2019 11:23
[2019-07-18] MEDS ORDERED: IOHEXOL 240 MG/ML 50ML VIAL. PO ONE (11:30)
[2019-07-18] MEDS ORDERED: CONTRAST GIVEN. MC PRN (11:45)
[2019-07-18] MEDS: TPN PER PHARMACY MC PRN (13:33)
--- NOTE | 2019-07-18 14:16 | RAD ---
EXAM: CT Chest, Abdomen, and Pelvis without IV contrast INDICATION: Pancreatitis and elevated white blood cell count. TECHNIQUE: Multi-detector row CT images were acquired from the thoracic inlet through the ischial tuberosities without the use of IV contrast. Sagittal and coronal images were acquired from the transaxial data. All CT scans performed at this facility utilize dose optimization techniques as appropriate to the exam, including the following: Automated exposure control and adjustment of the mA and/or KV according to patient size (this includes techniques or standardized protocols for targeted exams where dose is indication/reason for exam). ORAL CONTRAST: Administered COMPARISON: CT abdomen and pelvis with IV contrast 07/05/2019 and 07/04/2019 chest, abdomen and pelvis CT. FINDINGS: The absence of IV contrast limits evaluation of soft tissue pathology. CHEST: CARDIOVASCULAR: Unremarkable MEDIASTINUM & WILLIAM: Interval endotracheal intubation. Right PICC line terminates in the SVC. Left jugular approach central venous catheter terminates at the distal SVC. The larger bore right jugular approach central venous catheter terminates in the proximal to mid SVC. The thoracic esophagus contains an enteric tube terminating in the gastric body. Oral contrast has been administered and this refluxes up the thoracic esophagus to the cervicothoracic junction. The bilateral william are obscured by parenchymal lung consolidation probably involving the lower lobes and the right middle lobe. No mediastinal adenopathy or mass is apparent. LUNGS: Posterior left upper lobe consolidation with rounded contours is suggestive of rounded atelectasis. Lobar atelectasis of the right middle lobe is also present along with posterior lateral basilar right lower lobe atelectasis. The left lung is diffusely consolidated with air bronchograms and patchy atelectatic changes are evident in the left lung apex. PLEURAL SPACE: Moderate bilateral pleural effusions are present, slightly increased in depth bilaterally. OSSEOUS & SOFT TISSUE: Bones are unremarkable. There is generalized anasarca with subcutaneous edema throughout the subcutaneous soft tissues and in the mesentery, extensive edema.. Bilateral breast implants redemonstrated. ABDOMEN/PELVIS: LIVER: Unremarkable BILIARY SYSTEM: Multiple gallstones are present. The gallbladder is obscured by perihepatic ascites. Bile ducts are not dilated. PANCREAS: Pancreas is surrounded by slightly larger amount of peripancreatic fluid. No intraparenchymal gas is evident. SPLEEN: Unremarkable ADRENALS: Unremarkable KIDNEYS & URETERS: Unremarkable BLADDER: Lind catheter is present. The urinary bladder is obscured by ascites and may be completely collapsed/empty. REPRODUCTIVE ORGANS: Unremarkable GASTROINTESTINAL: No findings of bowel obstruction or perforation. A rectal tube is present. There is more fluid in the upper abdominal mesentery, now exerting some mass effect on the gastric fundus and proximal body. MESENTERY/PERITONEUM/RETROPERITONEUM: Moderate amount of free intraperitoneal fluid is now present. In the pelvis, this fluid shows a fluid fluid level that is suspicious for a hematocrit level. VASCULAR: Unremarkable LYMPH NODES: No adenopathy OSSEOUS & SOFT TISSUES: Unremarkable IMPRESSION: Acute pancreatitis with developing anasarca, including worsening mesenteric edema and developing hemorrhagic ascites. Multiple supportive lines and tubes have been placed in the interval, consistent with a critically acute illness. Electronically signed by: Charan Dove MD (07/18/2019 2:13 PM) [id number]
[2019-07-18 14:54] LABS: CALCIUM 8.1 mg/dL (8.5-10.1); CREATININE 1.6 mg/dL (0.6-1.0); GFR 34.3; MAGNESIUM 2.2 mg/dL (1.8-2.4); POTASSIUM 4.4 mmol/L (3.5-5.1)
--- NOTE | 2019-07-18 16:50 | PDOC ---
PROGRESS NOTES Assessment Assessment Respiratory failure. Seizure. Metabolic encephalopathy. Fever 102.7 degree. Metabolic acidosis. Diffuse pulmonary infiltrate. Pleural effusion. Pancreatitis Gallstone. Leukocytosis. Electrolytes imbalances. Hyperglycemia. DM. HTN. HLD. Anemia. Obesity. RECOMMENDATIONS/PLAN: Continue life support in ICU at the present time. Yudi if has further seizures. Lab: see orders, including pending Covid-19 results. Treat medical diseases. EEG last week: No seizure activity. Past Medical History Cardiovascular: HTN, Hyperlipidemia Endocrine: Diabetes Family History Unobtainable. Social HistoryU not obtainable Allergies Coded Allergies: codeine (Verified Allergy, Intermediate, rash, 07/04/19) ROS Unobtainable in unresponsive state. PHYSICAL EXAMINATION: General appearance in sub acute distress. HEENT: Normocephalic and nontraumatic. Eyes, nose, ears, and throat are unremarkable. Neck is supple. No lymphadenopathy. Cardiovascular: S1, S2. Pulmonary: On vent.. Abdomen: Bowel sounds are weak. Extremities: No rash, lesions. NEUROLOGICAL EXAMINATION: Unresponsive. On vent. Not oriented to time, place and person. PERRL. EOMI not elicited, CN: no acute focal findings. Muscle tone: within normal. Muscle strength: No movements to stimuli. DTR: 0-1 Plantar reflex: No response bilaterally Gait: not able to walk. Sensory exam: no response to stimuli.. Not able to access cerebellar signs. F-T-N test not performed due to unresponsiveness Objective Objective Vital Signs Date Time Temp Pulse Resp B/P (MAP) Pulse Ox O2 Delivery O2 Flow Rate FiO2 07/18/19 15:55 97 07/18/19 14:46 6.0 07/18/19 14:00 118 25 119/53 (75) Ventilator 07/18/19 12:00 100.2 100.2 Intake and Output 07/18/19 07:00 Intake Total 2269 ml Output Total 490 ml Balance 1779 ml IV Total 2269 ml Output Urine Total 390 ml Gastric Drainage Total 100 ml Vitals Signs Vitals VS - Last 72 Hours, by Label Date Time Temp Pulse Resp B/P (MAP) Pulse Ox O2 Delivery O2 Flow Rate FiO2 07/18/19 15:55 97 07/18/19 14:46 99 6.0 07/18/19 14:00 118 25 119/53 (75) 99 Ventilator 07/18/19 13:39 98 3/30/20 13:00 126 25 112/52 (72) 98 Ventilator 07/18/19 12:04 100 07/18/19 12:00 100.2 122 25 115/69 (84) 99 Ventilator 100.2 07/18/19 12:00 Mechanical Ventilator 07/18/19 11:00 114 24 102/62 (75) 100 Ventilator 07/18/19 10:00 117 24 105/51 (69) 99 Ventilator 07/18/19 09:00 118 25 90/65 (73) 99 Ventilator 07/18/19 08:00 99.8 121 25 98/78 (85) 99 Ventilator 99.8 07/18/19 08:00 Mechanical Ventilator 07/18/19 07:00 118 26 89/67 (74) 100 Ventilator 07/18/19 06:13 Ventilator 07/18/19 06:00 121 25 129/48 (75) 100 Ventilator 07/18/19 05:40 BiPAP/CPAP 07/18/19 05:00 121 25 96/57 (70) 100 Ventilator 07/18/19 04:37 100 07/18/19 04:00 98.9 119 25 95/60 (72) 100 Ventilator 98.9 07/18/19 03:30 Mechanical Ventilator 07/18/19 03:15 116 108/54 (72) 07/18/19 03:00 119 25 100 Ventilator 07/18/19 02:30 116 112/63 (79) 07/18/19 02:15 116 99/55 (70) 07/18/19 02:00 117 25 105/55 (72) 100 Ventilator 07/18/19 01:58 100 07/18/19 01:45 124 98/69 (79) 07/18/19 01:30 120 07/18/19 01:15 124 73/56 (62) 07/18/19 01:00 119 25 121/91 (101) 100 Ventilator 07/18/19 00:00 97.8 113 25 105/59 (74) 100 Ventilator 97.8 07/17/19 23:45 113 114/57 (76) 07/17/19 23:30 Mechanical Ventilator 07/17/19 23:30 112 108/56 (73) 07/17/19 23:00 112 25 91/66 (74) 100 Ventilator 07/17/19 22:32 93 07/17/19 22:00 114 25 109/85 (93) 95 Ventilator 07/17/19 21:45 115 92/58 (69) 07/17/19 21:30 115 104/68 (80) 07/17/19 21:00 116 25 105/67 (80) 99 Ventilator 07/17/19 20:27 Ventilator 07/17/19 20:19 93 07/17/19 20:01 97.8 113 25 129/63 (85) 97 Ventilator 97.8 07/17/19 19:46 Ventilator 07/17/19 19:45 Mechanical Ventilator 07/17/19 19:00 112 25 102/52 (69) 96 Ventilator 07/17/19 18:00 116 26 90/58 (69) 96 Ventilator 07/17/19 17:00 114 25 105/56 (72) 98 Ventilator 07/17/19 16:05 97 07/17/19 16:00 Mechanical Ventilator 07/17/19 16:00 98.5 113 26 106/68 (81) 98 Ventilator 98.5 07/17/19 15:00 114 28 114/83 (93) 99 Ventilator 07/17/19 14:00 124 24 102/65 (77) 95 Ventilator 07/17/19 13:00 119 24 96/59 (71) 96 Ventilator 07/17/19 12:00 Mechanical Ventilator 07/17/19 12:00 122 26 128/68 (88) 98 Ventilator 07/17/19 11:37 97 Ventilator 07/17/19 11:00 100.0 127 20 141/82 (101) 96 Ventilator 100.0 07/17/19 10:00 128 34 136/94 (108) 95 Ventilator 07/17/19 09:00 122 25 114/79 (91) 97 Ventilator 07/17/19 08:59 97 Ventilator 07/17/19 08:42 96 Ventilator 07/17/19 08:15 Mechanical Ventilator 07/17/19 08:12 96 Ventilator 07/17/19 08:00 99.7 120 25 114/67 (83) 95 Ventilator 99.7 07/17/19 07:00 112 25 118/92 (101) 98 Ventilator Laboratory Laboratory Laboratory Tests Test 07/17/19 17:45 07/17/19 18:25 07/17/19 23:50 07/18/19 00:04 Glucose (Fingerstick) 206 mg/dL (70-99) 177 mg/dL (70-99) Sodium Level 138 mmol/L (136-145) 137 mmol/L (136-145) Potassium Level 4.3 mmol/L (3.5-5.1) 4.4 mmol/L (3.5-5.1) Chloride Level 105 mmol/L (98-107) 104 mmol/L (98-107) Carbon Dioxide Level 28 mmol/L (21-32) 27 mmol/L (21-32) Anion Gap 5 (6-14) 6 (6-14) Blood Urea Nitrogen 36 mg/dL (7-20) 37 mg/dL (7-20) Creatinine 1.3 mg/dL (0.6-1.0) 1.3 mg/dL (0.6-1.0) Estimated GFR (Cockcroft-Gault) 43.5 43.5 Glucose Level 211 mg/dL (70-99) 213 mg/dL (70-99) Calcium Level 7.8 mg/dL (8.5-10.1) 7.9 mg/dL (8.5-10.1) Phosphorus Level 2.8 mg/dL (2.6-4.7) 2.9 mg/dL (2.6-4.7) Magnesium Level 2.3 mg/dL (1.8-2.4) 2.3 mg/dL (1.8-2.4) Test 07/18/19 05:30 07/18/19 05:35 07/18/19 14:18 07/18/19 14:30 White Blood Count 45.0 x10^3/uL (4.0-11.0) Red Blood Count 2.20 x10^6/uL (3.50-5.40) Hemoglobin 7.3 g/dL (12.0-15.5) Hematocrit 22.0 % (36.0-47.0) Mean Corpuscular Volume 100 fL (79-100) Mean Corpuscular Hemoglobin 33 pg (25-35) Mean Corpuscular Hemoglobin Concent 33 g/dL (31-37) Red Cell Distribution Width 15.5 % (11.5-14.5) Platelet Count 383 x10^3/uL (140-400) Neutrophils (%) (Auto) 85 % (31-73) Lymphocytes (%) (Auto) 9 % (24-48) Monocytes (%) (Auto) 4 % (0-9) Eosinophils (%) (Auto) 1 % (0-3) Basophils (%) (Auto) 0 % (0-3) Neutrophils # (Auto) 38.4 x10^3/uL (1.8-7.7) Lymphocytes # (Auto) 4.0 x10^3/uL (1.0-4.8) Monocytes # (Auto) 2.0 x10^3/uL (0.0-1.1) Eosinophils # (Auto) 0.5 x10^3/uL (0.0-0.7) Basophils # (Auto) 0.2 x10^3/uL (0.0-0.2) Segmented Neutrophils % 68 % (35-66) Band Neutrophils % 19 % (0-9) Lymphocytes % 6 % (24-48) Monocytes % 5 % (0-10) Eosinophils % 1 % (0-5) Myelocytes % 1 % (0-0) Nucleated Red Blood Cells 4 Toxic Granulation Present Platelet Estimate Adequate (ADEQUATE) Large Platelets Present Polychromasia Present Anisocytosis Slight Macrocytosis Present Sodium Level 136 mmol/L (136-145) 137 mmol/L (136-145) Potassium Level 4.3 mmol/L (3.5-5.1) 4.4 mmol/L (3.5-5.1) Chloride Level 103 mmol/L (98-107) 103 mmol/L (98-107) Carbon Dioxide Level 27 mmol/L (21-32) 26 mmol/L (21-32) Anion Gap 6 (6-14) 8 (6-14) Blood Urea Nitrogen 35 mg/dL (7-20) 41 mg/dL (7-20) Creatinine 1.3 mg/dL (0.6-1.0) 1.6 mg/dL (0.6-1.0) Estimated GFR (Cockcroft-Gault) 43.5 34.3 Glucose Level 204 mg/dL (70-99) 244 mg/dL (70-99) Calcium Level 8.1 mg/dL (8.5-10.1) 8.1 mg/dL (8.5-10.1) Phosphorus Level 2.9 mg/dL (2.6-4.7) 3.0 mg/dL (2.6-4.7) Magnesium Level 2.4 mg/dL (1.8-2.4) 2.2 mg/dL (1.8-2.4) Glucose (Fingerstick) 187 mg/dL (70-99) 237 mg/dL (70-99) Microbiology 07/12/19 Blood Culture - Final, Complete NO GROWTH AFTER 5 DAYS Medication Medications Current Medications Info (CONTRAST GIVEN -- Rx MONITORING) 1 each PRN DAILY PRN MC SEE COMMENTS; Start 07/18/19 at 11:45; Stop 07/20/19 at 11:44 Iohexol (Omnipaque 240 Mg/ml) 30 ml 1X ONCE PO ; Start 07/18/19 at 11:30; Stop 07/18/19 at 11:33; Status DC Potassium Chloride 15 meq/ Bicarbonate Dialysis Soln w/ out KCl 5,007.5 ml @ 1, 000 mls/ hr Q5H1M IV Last administered on 07/18/19at 14:48; Start 07/17/19 at 20:00 Potassium Chloride 15 meq/ Bicarbonate Dialysis Soln w/ out KCl 5,007.5 ml @ 1,000 mls/ hr Q5H1M IV Last administered on 07/18/19at 14:49; Start 07/17/19 at 20:00 Potassium Chloride 15 meq/ Bicarbonate Dialysis Soln w/ out KCl 5,007.5 ml @ 1,000 mls/ hr Q5H1M IV Last administered on 07/18/19at 14:49; Start 07/17/19 at 20:00 Sodium Chloride 90 meq/Potassium Chloride 15 meq/ Potassium Phosphate 18 mmol/ Magnesium Sulfate 8 meq/Calcium Gluconate 15 meq/ Multivitamins 10 ml/Chromium/ Copper/Manganese/ Seleni/Zn 0.5 ml/ Insulin Human Regular 15 unit/ Total Parenteral Nutrition/Amino Acids/Dextrose/ Fat Emulsion Intravenous 1,400 ml @ 58.333 mls/ hr TPN CONT IV Last administered on 07/17/19at 22:05; Start 07/17/19 at 22:00; Stop 07/18/19 at 21:59 Sodium Chloride 90 meq/Potassium Chloride 15 meq/ Potassium Phosphate 18 mmol/ Magnesium Sulfate 8 meq/Calcium Gluconate 15 meq/ Multivitamins 10 ml/Chromium/ Copper/Manganese/ Seleni/Zn 0.5 ml/ Insulin Human Regular 15 unit/ Total Parenteral Nutrition/Amino Acids/Dextrose/ Fat Emulsion Intravenous 1,400 ml @ 58.333 mls/ hr TPN CONT IV ; Start 07/18/19 at 22:00; Stop 07/19/19 at 21:59 Comment Review of Relevant I have reviewed the following items kolby (where applicable) has been applied. ZANDER ZUÑIGA MD Jul 18, 2019 16:50
[2019-07-18] MEDS ORDERED: TOTAL PARENTERAL NUTRITION IV SCH ×11 (22:00)
[2019-07-18] MEDS ORDERED: AMINO ACID IV SCH ×11 (22:00)
[2019-07-18] MEDS ORDERED: [UNRECOGNIZED DRUG - OTHER] IV SCH ×11 (22:00)
[2019-07-18] MEDS ORDERED: DEXTROSE 70% IV SCH ×11 (22:00)
[2019-07-19] VITALS (29 sets, daily range): BP systolic 92–133; BP diastolic 46–93
[2019-07-19] MEDS: POTASSIUM CHLORIDE 15 MEQ in DIALYSIS SOLUTION BGK 0/2.5 5,000 ML IV SCH ×32 (00:36→22:06)
[2019-07-19 00:45] LABS: CALCIUM 7.9 mg/dL (8.5-10.1); CREATININE 1.3 mg/dL (0.6-1.0); GFR 43.5; MAGNESIUM 2.1 mg/dL (1.8-2.4); PHOSPHORUS 2.9 mg/dL (2.6-4.7); POTASSIUM 4.1 mmol/L (3.5-5.1)
[2019-07-19 05:43] LABS: BASO # 0.2 x10^3/uL (0.0-0.2); BASO % 1 % (0-3); EOS # 0.4 x10^3/uL (0.0-0.7); EOS % 1 % (0-3); LYMPH # 4.1 x10^3/uL (1.0-4.8); LYMPH % 12 % (24-48); MEAN CORPUSCULAR HEMOGLOBIN 34 pg (25-35); MEAN CORPUSCULAR HGB CONC 33 g/dL (31-37); MEAN CORPUSCULAR VOLUME 101 fL (79-100); MONO # 1.7 x10^3/uL (0.0-1.1); MONO % 5 % (0-9); NEUT # 29.1 x10^3/uL (1.8-7.7); NEUT % 82 % (31-73); PLATELET COUNT 354 x10^3/uL (140-400); RED BLOOD COUNT 1.92 x10^6/uL (3.50-5.40); RED CELL DISTRIBUTION WIDTH 15.4 % (11.5-14.5); WHITE BLOOD COUNT 35.5 x10^3/uL (4.0-11.0)
[2019-07-19] MEDS: INSULIN LISPRO 300 UNITS/3 ML VIAL. SQ SCH ×3 (05:54→17:12)
[2019-07-19 05:55] LABS: HEMATOCRIT 19.4 % (36.0-47.0); HEMOGLOBIN 6.5 g/dL (12.0-15.5)
[2019-07-19 06:06] LABS: CALCIUM 8.1 mg/dL (8.5-10.1); CREATININE 1.3 mg/dL (0.6-1.0); GFR 43.5; MAGNESIUM 2.4 mg/dL (1.8-2.4); PHOSPHORUS 2.9 mg/dL (2.6-4.7); POTASSIUM 4.1 mmol/L (3.5-5.1)
[2019-07-19] MEDS: ALBUMIN HUMAN 5% 500 ML IV PRN (08:27)
--- NOTE | 2019-07-19 08:42 | PDOC ---
Infectious Disease Note Subjective Subjective intubated sedated ROS ROS no n/v/d/sob Vital Sign Vital Signs Vital Signs Date Time Temp Pulse Resp B/P (MAP) Pulse Ox O2 Delivery O2 Flow Rate FiO2 07/19/19 08:27 98 Ventilator 07/19/19 07:47 99.0 116 25 114/46 99.0 07/18/19 15:16 6.0 Physical Exam PHYSICAL EXAM GENERAL: Orally intubated/sedated - generalizd anasarca HEENT: Mild icterus, pupils equal, ETT, NGT NECK: Supple. LUNGS: Decreased breath sounds at the bases. HEART: S1, S2, regular ABDOMEN: Distended, hypoactive BS, Rectal tube in place : Lind EXTREMITIES: Generalized edema, no cyanosis - some mottling, Rooke boots bilaterally DERMATOLOGIC: Warm and dry. No generalized rash. CENTRAL NERVOUS SYSTEM: Sedated RIJ Temp HDC, RUE-PICC & LIJ - clean Labs Lab Laboratory Tests Test 07/18/19 14:18 07/18/19 14:30 07/18/19 17:32 07/18/19 23:33 Glucose (Fingerstick) 237 mg/dL (70-99) 161 mg/dL (70-99) 180 mg/dL (70-99) Sodium Level 137 mmol/L (136-145) Potassium Level 4.4 mmol/L (3.5-5.1) Chloride Level 103 mmol/L (98-107) Carbon Dioxide Level 26 mmol/L (21-32) Anion Gap 8 (6-14) Blood Urea Nitrogen 41 mg/dL (7-20) Creatinine 1.6 mg/dL (0.6-1.0) Estimated GFR (Cockcroft-Gault) 34.3 Glucose Level 244 mg/dL (70-99) Calcium Level 8.1 mg/dL (8.5-10.1) Phosphorus Level 3.0 mg/dL (2.6-4.7) Magnesium Level 2.2 mg/dL (1.8-2.4) Test 07/19/19 00:30 07/19/19 05:30 07/19/19 05:43 Sodium Level 137 mmol/L (136-145) 138 mmol/L (136-145) Potassium Level 4.1 mmol/L (3.5-5.1) 4.1 mmol/L (3.5-5.1) Chloride Level 104 mmol/L (98-107) 105 mmol/L (98-107) Carbon Dioxide Level 28 mmol/L (21-32) 27 mmol/L (21-32) Anion Gap 5 (6-14) 6 (6-14) Blood Urea Nitrogen 35 mg/dL (7-20) 34 mg/dL (7-20) Creatinine 1.3 mg/dL (0.6-1.0) 1.3 mg/dL (0.6-1.0) Estimated GFR (Cockcroft-Gault) 43.5 43.5 Glucose Level 193 mg/dL (70-99) 185 mg/dL (70-99) Calcium Level 7.9 mg/dL (8.5-10.1) 8.1 mg/dL (8.5-10.1) Phosphorus Level 2.9 mg/dL (2.6-4.7) 2.9 mg/dL (2.6-4.7) Magnesium Level 2.1 mg/dL (1.8-2.4) 2.4 mg/dL (1.8-2.4) White Blood Count 35.5 x10^3/uL (4.0-11.0) Red Blood Count 1.92 x10^6/uL (3.50-5.40) Hemoglobin 6.5 g/dL (12.0-15.5) Hematocrit 19.4 % (36.0-47.0) Mean Corpuscular Volume 101 fL (79-100) Mean Corpuscular Hemoglobin 34 pg (25-35) Mean Corpuscular Hemoglobin Concent 33 g/dL (31-37) Red Cell Distribution Width 15.4 % (11.5-14.5) Platelet Count 354 x10^3/uL (140-400) Neutrophils (%) (Auto) 82 % (31-73) Lymphocytes (%) (Auto) 12 % (24-48) Monocytes (%) (Auto) 5 % (0-9) Eosinophils (%) (Auto) 1 % (0-3) Basophils (%) (Auto) 1 % (0-3) Neutrophils # (Auto) 29.1 x10^3/uL (1.8-7.7) Lymphocytes # (Auto) 4.1 x10^3/uL (1.0-4.8) Monocytes # (Auto) 1.7 x10^3/uL (0.0-1.1) Eosinophils # (Auto) 0.4 x10^3/uL (0.0-0.7) Basophils # (Auto) 0.2 x10^3/uL (0.0-0.2) Glucose (Fingerstick) 194 mg/dL (70-99) Micro Microbiology 07/12/19 Blood Culture - Final, Complete NO GROWTH AFTER 5 DAYS Objective Assessment Leukocytosis - increased - ? reactive - trouble with CRRT/S/p PRBCs ? intra- abdominal Fever - better - Flu neg antigen 07/13 ? reactive with pancreatitis vs ID - C- diff neg. S/p HD cath change with malfunction 07/12 - cults 07/11 neg Lung opacities, COVID-19 neg Hypotension Acute pancreatitis, early developing necrosis -U/S 07/13 reviewed JUANA,Hyperkalemia, Metabolic acidosis on CRRT - s/p RIJ temporary dialysis catheter replacement, 07/12 Anasarca - worse Acute hypoxic resp failure, intubated ? developing peripheral ischemia - better Cholelithiasis Anemia - S/p PRBC 07/13 Hypocalcemia Prediabetes HTN Plan Plan of Care Continue Dapto/cefepime (07/12), Flagyl and micafungin (07/10) -Previously on Merrem, Zyvox F/u Blood cults 07/11 so far neg No surgical plans at this time Maintain aspiration precautions Airborne isolation d/c'd. COVID-19 neg Repeat CBC need ct chest, abd and pelvis,,, noted d/w GI D/w nursing Critically ill KIMMY JONES MD Jul 19, 2019 08:42
[2019-07-19] MEDS: DAPTOmycin (GENERIC) IVPB 500 MG in IV NORMAL SALINE 50ML 50 ML IV SCH (09:14)
[2019-07-19] MEDS: CEFEPIME HCL IV Push 2 GM VIAL. IVP SCH ×2 (09:15→21:12)
[2019-07-19] MEDS: MICAFUNGIN 100 MG in IV DEXTROSE 5% 100ML 100 ML IV SCH (09:16)
[2019-07-19] MEDS: PANTOPRAZOLE IV PUSH 40 MG VIAL. IVP SCH (09:16)
--- NOTE | 2019-07-19 09:30 | PDOC ---
Objective: Vital Signs: Vital Signs Date Time Temp Pulse Resp B/P (MAP) Pulse Ox O2 Delivery O2 Flow Rate FiO2 07/19/19 08:58 99.9 115 26 110/60 99.9 07/19/19 08:27 98 Ventilator 07/18/19 15:16 6.0 Labs: Laboratory Tests Test 07/18/19 14:18 07/18/19 14:30 07/18/19 17:32 07/18/19 23:33 Glucose (Fingerstick) 237 mg/dL 161 mg/dL 180 mg/dL Sodium Level 137 mmol/L Potassium Level 4.4 mmol/L Chloride Level 103 mmol/L Carbon Dioxide Level 26 mmol/L Anion Gap 8 Blood Urea Nitrogen 41 mg/dL Creatinine 1.6 mg/dL Estimated GFR (Cockcroft-Gault) 34.3 Glucose Level 244 mg/dL Calcium Level 8.1 mg/dL Phosphorus Level 3.0 mg/dL Magnesium Level 2.2 mg/dL Test 07/19/19 00:30 07/19/19 05:30 07/19/19 05:43 Sodium Level 137 mmol/L 138 mmol/L Potassium Level 4.1 mmol/L 4.1 mmol/L Chloride Level 104 mmol/L 105 mmol/L Carbon Dioxide Level 28 mmol/L 27 mmol/L Anion Gap 5 6 Blood Urea Nitrogen 35 mg/dL 34 mg/dL Creatinine 1.3 mg/dL 1.3 mg/dL Estimated GFR (Cockcroft-Gault) 43.5 43.5 Glucose Level 193 mg/dL 185 mg/dL Calcium Level 7.9 mg/dL 8.1 mg/dL Phosphorus Level 2.9 mg/dL 2.9 mg/dL Magnesium Level 2.1 mg/dL 2.4 mg/dL White Blood Count 35.5 x10^3/uL Red Blood Count 1.92 x10^6/uL Hemoglobin 6.5 g/dL Hematocrit 19.4 % Mean Corpuscular Volume 101 fL Mean Corpuscular Hemoglobin 34 pg Mean Corpuscular Hemoglobin Concent 33 g/dL Red Cell Distribution Width 15.4 % Platelet Count 354 x10^3/uL Neutrophils (%) (Auto) 82 % Lymphocytes (%) (Auto) 12 % Monocytes (%) (Auto) 5 % Eosinophils (%) (Auto) 1 % Basophils (%) (Auto) 1 % Neutrophils # (Auto) 29.1 x10^3/uL Lymphocytes # (Auto) 4.1 x10^3/uL Monocytes # (Auto) 1.7 x10^3/uL Eosinophils # (Auto) 0.4 x10^3/uL Basophils # (Auto) 0.2 x10^3/uL Glucose (Fingerstick) 194 mg/dL Imaging: C/A/P CT 07/17 IMPRESSION: Acute pancreatitis with developing anasarca, including worsening mesenteric edema and developing hemorrhagic ascites. Multiple supportive lines and tubes have been placed in the interval, consistent with a critically acute illness. CXR 07/18 pending PE: GEN: intubated/vent, CRRT, TPN LUNGS: diminished anteriorly, tachypneic HEART: tachycardic ABD: firm, particularly upper abdomen, rectal tube NEURO/PSYCH: sedated A/P: Gallstone pancreatitis, MOSF Anemia - transfusion planned -- Interval CT as above - d/w Dr. Neri, reviewed w/ Dr. Weber - would not tap ascites, await surgical follow-up. Hemodynamically unstable?: Yes Is patient in severe pain?: No Is NPO status required?: Yes CYNDEE FALCON Jul 19, 2019 09:30
[2019-07-19 09:36] LABS: BASE EXCESS ABG -1 mmol/L (-3-3); HCO3 ABG 25 mmol/L (21-28); PCO2 ABG 47 mmHg (35-46); PO2 ABG 73 mmHg (75-108); SAT O2 ABG 93 % (92-99)
[2019-07-19 09:40] LABS: FIO2 ABG 40
--- NOTE | 2019-07-19 10:03 | NUR ---
SW following. Chart reviewed, pt on TPN, vent, IV abx, CRRT. Per chart, pt is a poor surgical candidate and has a poor prognosis. Pt tested negative for Covid-19. SW will continue to follow.
--- NOTE | 2019-07-19 10:04 | PDOC ---
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 07/19/19 1004: SURGICAL PROGRESS NOTE Subjective d/w nurse family requesting call from Dr Servin Vital Signs Vital Signs Date Time Temp Pulse Resp B/P (MAP) Pulse Ox O2 Delivery O2 Flow Rate FiO2 07/19/19 09:55 99.0 112 26 122/75 99.0 07/19/19 08:27 98 Ventilator 07/18/19 15:16 6.0 I&O Intake and Output 07/19/19 06:59 Intake Total 2651 ml Output Total 540 ml Balance 2111 ml IV Total 2651 ml Output Urine Total 340 ml Gastric Drainage Total 200 ml General: Other (sedated ) HEENT: Other (vent) Abdomen: Other (distended, firm) Labs Laboratory Tests Test 07/17/19 12:10 07/17/19 13:00 07/17/19 17:45 07/17/19 18:25 Glucose (Fingerstick) 204 mg/dL (70-99) 206 mg/dL (70-99) Sodium Level 138 mmol/L (136-145) 138 mmol/L (136-145) Potassium Level 4.4 mmol/L (3.5-5.1) 4.3 mmol/L (3.5-5.1) Chloride Level 103 mmol/L (98-107) 105 mmol/L (98-107) Carbon Dioxide Level 27 mmol/L (21-32) 28 mmol/L (21-32) Anion Gap 8 (6-14) 5 (6-14) Blood Urea Nitrogen 34 mg/dL (7-20) 36 mg/dL (7-20) Creatinine 1.2 mg/dL (0.6-1.0) 1.3 mg/dL (0.6-1.0) Estimated GFR (Cockcroft-Gault) 47.7 43.5 Glucose Level 210 mg/dL (70-99) 211 mg/dL (70-99) Calcium Level 8.2 mg/dL (8.5-10.1) 7.8 mg/dL (8.5-10.1) Phosphorus Level 2.6 mg/dL (2.6-4.7) 2.8 mg/dL (2.6-4.7) Magnesium Level 2.3 mg/dL (1.8-2.4) 2.3 mg/dL (1.8-2.4) Test 07/17/19 23:50 07/18/19 00:04 07/18/19 05:30 07/18/19 05:35 Sodium Level 137 mmol/L (136-145) 136 mmol/L (136-145) Potassium Level 4.4 mmol/L (3.5-5.1) 4.3 mmol/L (3.5-5.1) Chloride Level 104 mmol/L (98-107) 103 mmol/L (98-107) Carbon Dioxide Level 27 mmol/L (21-32) 27 mmol/L (21-32) Anion Gap 6 (6-14) 6 (6-14) Blood Urea Nitrogen 37 mg/dL (7-20) 35 mg/dL (7-20) Creatinine 1.3 mg/dL (0.6-1.0) 1.3 mg/dL (0.6-1.0) Estimated GFR (Cockcroft-Gault) 43.5 43.5 Glucose Level 213 mg/dL (70-99) 204 mg/dL (70-99) Calcium Level 7.9 mg/dL (8.5-10.1) 8.1 mg/dL (8.5-10.1) Phosphorus Level 2.9 mg/dL (2.6-4.7) 2.9 mg/dL (2.6-4.7) Magnesium Level 2.3 mg/dL (1.8-2.4) 2.4 mg/dL (1.8-2.4) Glucose (Fingerstick) 177 mg/dL (70-99) 187 mg/dL (70-99) White Blood Count 45.0 x10^3/uL (4.0-11.0) Red Blood Count 2.20 x10^6/uL (3.50-5.40) Hemoglobin 7.3 g/dL (12.0-15.5) Hematocrit 22.0 % (36.0-47.0) Mean Corpuscular Volume 100 fL (79-100) Mean Corpuscular Hemoglobin 33 pg (25-35) Mean Corpuscular Hemoglobin Concent 33 g/dL (31-37) Red Cell Distribution Width 15.5 % (11.5-14.5) Platelet Count 383 x10^3/uL (140-400) Neutrophils (%) (Auto) 85 % (31-73) Lymphocytes (%) (Auto) 9 % (24-48) Monocytes (%) (Auto) 4 % (0-9) Eosinophils (%) (Auto) 1 % (0-3) Basophils (%) (Auto) 0 % (0-3) Neutrophils # (Auto) 38.4 x10^3/uL (1.8-7.7) Lymphocytes # (Auto) 4.0 x10^3/uL (1.0-4.8) Monocytes # (Auto) 2.0 x10^3/uL (0.0-1.1) Eosinophils # (Auto) 0.5 x10^3/uL (0.0-0.7) Basophils # (Auto) 0.2 x10^3/uL (0.0-0.2) Segmented Neutrophils % 68 % (35-66) Band Neutrophils % 19 % (0-9) Lymphocytes % 6 % (24-48) Monocytes % 5 % (0-10) Eosinophils % 1 % (0-5) Myelocytes % 1 % (0-0) Nucleated Red Blood Cells 4 Toxic Granulation Present Platelet Estimate Adequate (ADEQUATE) Large Platelets Present Polychromasia Present Anisocytosis Slight Macrocytosis Present Test 07/18/19 14:18 07/18/19 14:30 07/18/19 17:32 07/18/19 23:33 Glucose (Fingerstick) 237 mg/dL (70-99) 161 mg/dL (70-99) 180 mg/dL (70-99) Sodium Level 137 mmol/L (136-145) Potassium Level 4.4 mmol/L (3.5-5.1) Chloride Level 103 mmol/L (98-107) Carbon Dioxide Level 26 mmol/L (21-32) Anion Gap 8 (6-14) Blood Urea Nitrogen 41 mg/dL (7-20) Creatinine 1.6 mg/dL (0.6-1.0) Estimated GFR (Cockcroft-Gault) 34.3 Glucose Level 244 mg/dL (70-99) Calcium Level 8.1 mg/dL (8.5-10.1) Phosphorus Level 3.0 mg/dL (2.6-4.7) Magnesium Level 2.2 mg/dL (1.8-2.4) Test 07/19/19 00:30 07/19/19 05:30 07/19/19 05:43 07/19/19 08:00 Sodium Level 137 mmol/L (136-145) 138 mmol/L (136-145) Potassium Level 4.1 mmol/L (3.5-5.1) 4.1 mmol/L (3.5-5.1) Chloride Level 104 mmol/L (98-107) 105 mmol/L (98-107) Carbon Dioxide Level 28 mmol/L (21-32) 27 mmol/L (21-32) Anion Gap 5 (6-14) 6 (6-14) Blood Urea Nitrogen 35 mg/dL (7-20) 34 mg/dL (7-20) Creatinine 1.3 mg/dL (0.6-1.0) 1.3 mg/dL (0.6-1.0) Estimated GFR (Cockcroft-Gault) 43.5 43.5 Glucose Level 193 mg/dL (70-99) 185 mg/dL (70-99) Calcium Level 7.9 mg/dL (8.5-10.1) 8.1 mg/dL (8.5-10.1) Phosphorus Level 2.9 mg/dL (2.6-4.7) 2.9 mg/dL (2.6-4.7) Magnesium Level 2.1 mg/dL (1.8-2.4) 2.4 mg/dL (1.8-2.4) White Blood Count 35.5 x10^3/uL (4.0-11.0) Red Blood Count 1.92 x10^6/uL (3.50-5.40) Hemoglobin 6.5 g/dL (12.0-15.5) Hematocrit 19.4 % (36.0-47.0) Mean Corpuscular Volume 101 fL (79-100) Mean Corpuscular Hemoglobin 34 pg (25-35) Mean Corpuscular Hemoglobin Concent 33 g/dL (31-37) Red Cell Distribution Width 15.4 % (11.5-14.5) Platelet Count 354 x10^3/uL (140-400) Neutrophils (%) (Auto) 82 % (31-73) Lymphocytes (%) (Auto) 12 % (24-48) Monocytes (%) (Auto) 5 % (0-9) Eosinophils (%) (Auto) 1 % (0-3) Basophils (%) (Auto) 1 % (0-3) Neutrophils # (Auto) 29.1 x10^3/uL (1.8-7.7) Lymphocytes # (Auto) 4.1 x10^3/uL (1.0-4.8) Monocytes # (Auto) 1.7 x10^3/uL (0.0-1.1) Eosinophils # (Auto) 0.4 x10^3/uL (0.0-0.7) Basophils # (Auto) 0.2 x10^3/uL (0.0-0.2) Glucose (Fingerstick) 194 mg/dL (70-99) O2 Saturation 93 % (92-99) Arterial Blood pH 7.34 (7.35-7.45) Arterial Blood pCO2 at Patient Temp 47 mmHg (35-46) Arterial Blood pO2 at Patient Temp 73 mmHg (75-108) Arterial Blood HCO3 25 mmol/L (21-28) Arterial Blood Base Excess -1 mmol/L (-3-3) FiO2 40 Laboratory Tests Test 07/18/19 14:18 07/18/19 14:30 07/18/19 17:32 07/18/19 23:33 Glucose (Fingerstick) 237 mg/dL (70-99) 161 mg/dL (70-99) 180 mg/dL (70-99) Sodium Level 137 mmol/L (136-145) Potassium Level 4.4 mmol/L (3.5-5.1) Chloride Level 103 mmol/L (98-107) Carbon Dioxide Level 26 mmol/L (21-32) Anion Gap 8 (6-14) Blood Urea Nitrogen 41 mg/dL (7-20) Creatinine 1.6 mg/dL (0.6-1.0) Estimated GFR (Cockcroft-Gault) 34.3 Glucose Level 244 mg/dL (70-99) Calcium Level 8.1 mg/dL (8.5-10.1) Phosphorus Level 3.0 mg/dL (2.6-4.7) Magnesium Level 2.2 mg/dL (1.8-2.4) Test 07/19/19 00:30 07/19/19 05:30 07/19/19 05:43 07/19/19 08:00 Sodium Level 137 mmol/L (136-145) 138 mmol/L (136-145) Potassium Level 4.1 mmol/L (3.5-5.1) 4.1 mmol/L (3.5-5.1) Chloride Level 104 mmol/L (98-107) 105 mmol/L (98-107) Carbon Dioxide Level 28 mmol/L (21-32) 27 mmol/L (21-32) Anion Gap 5 (6-14) 6 (6-14) Blood Urea Nitrogen 35 mg/dL (7-20) 34 mg/dL (7-20) Creatinine 1.3 mg/dL (0.6-1.0) 1.3 mg/dL (0.6-1.0) Estimated GFR (Cockcroft-Gault) 43.5 43.5 Glucose Level 193 mg/dL (70-99) 185 mg/dL (70-99) Calcium Level 7.9 mg/dL (8.5-10.1) 8.1 mg/dL (8.5-10.1) Phosphorus Level 2.9 mg/dL (2.6-4.7) 2.9 mg/dL (2.6-4.7) Magnesium Level 2.1 mg/dL (1.8-2.4) 2.4 mg/dL (1.8-2.4) White Blood Count 35.5 x10^3/uL (4.0-11.0) Red Blood Count 1.92 x10^6/uL (3.50-5.40) Hemoglobin 6.5 g/dL (12.0-15.5) Hematocrit 19.4 % (36.0-47.0) Mean Corpuscular Volume 101 fL (79-100) Mean Corpuscular Hemoglobin 34 pg (25-35) Mean Corpuscular Hemoglobin Concent 33 g/dL (31-37) Red Cell Distribution Width 15.4 % (11.5-14.5) Platelet Count 354 x10^3/uL (140-400) Neutrophils (%) (Auto) 82 % (31-73) Lymphocytes (%) (Auto) 12 % (24-48) Monocytes (%) (Auto) 5 % (0-9) Eosinophils (%) (Auto) 1 % (0-3) Basophils (%) (Auto) 1 % (0-3) Neutrophils # (Auto) 29.1 x10^3/uL (1.8-7.7) Lymphocytes # (Auto) 4.1 x10^3/uL (1.0-4.8) Monocytes # (Auto) 1.7 x10^3/uL (0.0-1.1) Eosinophils # (Auto) 0.4 x10^3/uL (0.0-0.7) Basophils # (Auto) 0.2 x10^3/uL (0.0-0.2) Glucose (Fingerstick) 194 mg/dL (70-99) O2 Saturation 93 % (92-99) Arterial Blood pH 7.34 (7.35-7.45) Arterial Blood pCO2 at Patient Temp 47 mmHg (35-46) Arterial Blood pO2 at Patient Temp 73 mmHg (75-108) Arterial Blood HCO3 25 mmol/L (21-28) Arterial Blood Base Excess -1 mmol/L (-3-3) FiO2 40 Problem List Problems Medical Problems: (1) Acute pancreatitis Status: Acute (2) Cholelithiasis Status: Acute Assessment/Plan ct reviewed, will review with Dr Servin, however very poor surgical candidate DAVON SERVIN MD 07/19/19 1556: SURGICAL PROGRESS NOTE Assessment/Plan Pt seen and examined. Agree with Ms. Horton's note Pt intubated and sedated. abd distended, edematous reviewing records, appears stable pulm and kidney function stable anasarca and ascites noted, suspect some blood transfuse as needed, although minimize as possible pt remains poor surgical candidate. d/w pt's daughter/dpoa on phone. 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 APRN Jul 19, 2019 10:04 DAVON SERVIN MD Jul 19, 2019 15:56
--- NOTE | 2019-07-19 10:07 | RAD ---
CHEST AP ONLY Clinical indications: On the ventilator. Follow-up study. COMPARISON: July 18, 2019. FINDINGS/ IMPRESSION: There've been no interval tube or line changes. No pneumothorax is seen. Bilateral vascular congestion and perihilar pulmonary edema and pleural effusions are still evident which are unchanged. The heart size and mediastinum are stable. Electronically signed by: Dudley Linn MD (07/19/2019 10:04 AM) [id number]
--- NOTE | 2019-07-19 10:09 | PDOC ---
PULMONARY PROGRESS NOTES Subjective Patient intubated on 07/10 , sedated Currently on assist control ventilation 450 tidal volume 8 of PEEP , 40%FIO2 ON CRRT Vitals Vital Signs Date Time Temp Pulse Resp B/P (MAP) Pulse Ox O2 Delivery O2 Flow Rate FiO2 07/19/19 09:55 99.0 112 26 122/75 99.0 07/19/19 08:27 98 Ventilator 07/18/19 15:16 6.0 Comments virtual exam done via telemedicine intubated/ sedated, mildly tachypnic, tachycardic no rash mild edema Extremities: Other (trace edema) Labs Laboratory Tests Test 07/17/19 12:10 07/17/19 13:00 07/17/19 17:45 07/17/19 18:25 Glucose (Fingerstick) 204 mg/dL (70-99) 206 mg/dL (70-99) Sodium Level 138 mmol/L (136-145) 138 mmol/L (136-145) Potassium Level 4.4 mmol/L (3.5-5.1) 4.3 mmol/L (3.5-5.1) Chloride Level 103 mmol/L (98-107) 105 mmol/L (98-107) Carbon Dioxide Level 27 mmol/L (21-32) 28 mmol/L (21-32) Anion Gap 8 (6-14) 5 (6-14) Blood Urea Nitrogen 34 mg/dL (7-20) 36 mg/dL (7-20) Creatinine 1.2 mg/dL (0.6-1.0) 1.3 mg/dL (0.6-1.0) Estimated GFR (Cockcroft-Gault) 47.7 43.5 Glucose Level 210 mg/dL (70-99) 211 mg/dL (70-99) Calcium Level 8.2 mg/dL (8.5-10.1) 7.8 mg/dL (8.5-10.1) Phosphorus Level 2.6 mg/dL (2.6-4.7) 2.8 mg/dL (2.6-4.7) Magnesium Level 2.3 mg/dL (1.8-2.4) 2.3 mg/dL (1.8-2.4) Test 07/17/19 23:50 07/18/19 00:04 07/18/19 05:30 07/18/19 05:35 Sodium Level 137 mmol/L (136-145) 136 mmol/L (136-145) Potassium Level 4.4 mmol/L (3.5-5.1) 4.3 mmol/L (3.5-5.1) Chloride Level 104 mmol/L (98-107) 103 mmol/L (98-107) Carbon Dioxide Level 27 mmol/L (21-32) 27 mmol/L (21-32) Anion Gap 6 (6-14) 6 (6-14) Blood Urea Nitrogen 37 mg/dL (7-20) 35 mg/dL (7-20) Creatinine 1.3 mg/dL (0.6-1.0) 1.3 mg/dL (0.6-1.0) Estimated GFR (Cockcroft-Gault) 43.5 43.5 Glucose Level 213 mg/dL (70-99) 204 mg/dL (70-99) Calcium Level 7.9 mg/dL (8.5-10.1) 8.1 mg/dL (8.5-10.1) Phosphorus Level 2.9 mg/dL (2.6-4.7) 2.9 mg/dL (2.6-4.7) Magnesium Level 2.3 mg/dL (1.8-2.4) 2.4 mg/dL (1.8-2.4) Glucose (Fingerstick) 177 mg/dL (70-99) 187 mg/dL (70-99) White Blood Count 45.0 x10^3/uL (4.0-11.0) Red Blood Count 2.20 x10^6/uL (3.50-5.40) Hemoglobin 7.3 g/dL (12.0-15.5) Hematocrit 22.0 % (36.0-47.0) Mean Corpuscular Volume 100 fL (79-100) Mean Corpuscular Hemoglobin 33 pg (25-35) Mean Corpuscular Hemoglobin Concent 33 g/dL (31-37) Red Cell Distribution Width 15.5 % (11.5-14.5) Platelet Count 383 x10^3/uL (140-400) Neutrophils (%) (Auto) 85 % (31-73) Lymphocytes (%) (Auto) 9 % (24-48) Monocytes (%) (Auto) 4 % (0-9) Eosinophils (%) (Auto) 1 % (0-3) Basophils (%) (Auto) 0 % (0-3) Neutrophils # (Auto) 38.4 x10^3/uL (1.8-7.7) Lymphocytes # (Auto) 4.0 x10^3/uL (1.0-4.8) Monocytes # (Auto) 2.0 x10^3/uL (0.0-1.1) Eosinophils # (Auto) 0.5 x10^3/uL (0.0-0.7) Basophils # (Auto) 0.2 x10^3/uL (0.0-0.2) Segmented Neutrophils % 68 % (35-66) Band Neutrophils % 19 % (0-9) Lymphocytes % 6 % (24-48) Monocytes % 5 % (0-10) Eosinophils % 1 % (0-5) Myelocytes % 1 % (0-0) Nucleated Red Blood Cells 4 Toxic Granulation Present Platelet Estimate Adequate (ADEQUATE) Large Platelets Present Polychromasia Present Anisocytosis Slight Macrocytosis Present Test 07/18/19 14:18 07/18/19 14:30 07/18/19 17:32 07/18/19 23:33 Glucose (Fingerstick) 237 mg/dL (70-99) 161 mg/dL (70-99) 180 mg/dL (70-99) Sodium Level 137 mmol/L (136-145) Potassium Level 4.4 mmol/L (3.5-5.1) Chloride Level 103 mmol/L (98-107) Carbon Dioxide Level 26 mmol/L (21-32) Anion Gap 8 (6-14) Blood Urea Nitrogen 41 mg/dL (7-20) Creatinine 1.6 mg/dL (0.6-1.0) Estimated GFR (Cockcroft-Gault) 34.3 Glucose Level 244 mg/dL (70-99) Calcium Level 8.1 mg/dL (8.5-10.1) Phosphorus Level 3.0 mg/dL (2.6-4.7) Magnesium Level 2.2 mg/dL (1.8-2.4) Test 07/19/19 00:30 07/19/19 05:30 07/19/19 05:43 07/19/19 08:00 Sodium Level 137 mmol/L (136-145) 138 mmol/L (136-145) Potassium Level 4.1 mmol/L (3.5-5.1) 4.1 mmol/L (3.5-5.1) Chloride Level 104 mmol/L (98-107) 105 mmol/L (98-107) Carbon Dioxide Level 28 mmol/L (21-32) 27 mmol/L (21-32) Anion Gap 5 (6-14) 6 (6-14) Blood Urea Nitrogen 35 mg/dL (7-20) 34 mg/dL (7-20) Creatinine 1.3 mg/dL (0.6-1.0) 1.3 mg/dL (0.6-1.0) Estimated GFR (Cockcroft-Gault) 43.5 43.5 Glucose Level 193 mg/dL (70-99) 185 mg/dL (70-99) Calcium Level 7.9 mg/dL (8.5-10.1) 8.1 mg/dL (8.5-10.1) Phosphorus Level 2.9 mg/dL (2.6-4.7) 2.9 mg/dL (2.6-4.7) Magnesium Level 2.1 mg/dL (1.8-2.4) 2.4 mg/dL (1.8-2.4) White Blood Count 35.5 x10^3/uL (4.0-11.0) Red Blood Count 1.92 x10^6/uL (3.50-5.40) Hemoglobin 6.5 g/dL (12.0-15.5) Hematocrit 19.4 % (36.0-47.0) Mean Corpuscular Volume 101 fL (79-100) Mean Corpuscular Hemoglobin 34 pg (25-35) Mean Corpuscular Hemoglobin Concent 33 g/dL (31-37) Red Cell Distribution Width 15.4 % (11.5-14.5) Platelet Count 354 x10^3/uL (140-400) Neutrophils (%) (Auto) 82 % (31-73) Lymphocytes (%) (Auto) 12 % (24-48) Monocytes (%) (Auto) 5 % (0-9) Eosinophils (%) (Auto) 1 % (0-3) Basophils (%) (Auto) 1 % (0-3) Neutrophils # (Auto) 29.1 x10^3/uL (1.8-7.7) Lymphocytes # (Auto) 4.1 x10^3/uL (1.0-4.8) Monocytes # (Auto) 1.7 x10^3/uL (0.0-1.1) Eosinophils # (Auto) 0.4 x10^3/uL (0.0-0.7) Basophils # (Auto) 0.2 x10^3/uL (0.0-0.2) Glucose (Fingerstick) 194 mg/dL (70-99) O2 Saturation 93 % (92-99) Arterial Blood pH 7.34 (7.35-7.45) Arterial Blood pCO2 at Patient Temp 47 mmHg (35-46) Arterial Blood pO2 at Patient Temp 73 mmHg (75-108) Arterial Blood HCO3 25 mmol/L (21-28) Arterial Blood Base Excess -1 mmol/L (-3-3) FiO2 40 Laboratory Tests Test 07/18/19 14:18 07/18/19 14:30 07/18/19 17:32 07/18/19 23:33 Glucose (Fingerstick) 237 mg/dL (70-99) 161 mg/dL (70-99) 180 mg/dL (70-99) Sodium Level 137 mmol/L (136-145) Potassium Level 4.4 mmol/L (3.5-5.1) Chloride Level 103 mmol/L (98-107) Carbon Dioxide Level 26 mmol/L (21-32) Anion Gap 8 (6-14) Blood Urea Nitrogen 41 mg/dL (7-20) Creatinine 1.6 mg/dL (0.6-1.0) Estimated GFR (Cockcroft-Gault) 34.3 Glucose Level 244 mg/dL (70-99) Calcium Level 8.1 mg/dL (8.5-10.1) Phosphorus Level 3.0 mg/dL (2.6-4.7) Magnesium Level 2.2 mg/dL (1.8-2.4) Test 07/19/19 00:30 07/19/19 05:30 07/19/19 05:43 07/19/19 08:00 Sodium Level 137 mmol/L (136-145) 138 mmol/L (136-145) Potassium Level 4.1 mmol/L (3.5-5.1) 4.1 mmol/L (3.5-5.1) Chloride Level 104 mmol/L (98-107) 105 mmol/L (98-107) Carbon Dioxide Level 28 mmol/L (21-32) 27 mmol/L (21-32) Anion Gap 5 (6-14) 6 (6-14) Blood Urea Nitrogen 35 mg/dL (7-20) 34 mg/dL (7-20) Creatinine 1.3 mg/dL (0.6-1.0) 1.3 mg/dL (0.6-1.0) Estimated GFR (Cockcroft-Gault) 43.5 43.5 Glucose Level 193 mg/dL (70-99) 185 mg/dL (70-99) Calcium Level 7.9 mg/dL (8.5-10.1) 8.1 mg/dL (8.5-10.1) Phosphorus Level 2.9 mg/dL (2.6-4.7) 2.9 mg/dL (2.6-4.7) Magnesium Level 2.1 mg/dL (1.8-2.4) 2.4 mg/dL (1.8-2.4) White Blood Count 35.5 x10^3/uL (4.0-11.0) Red Blood Count 1.92 x10^6/uL (3.50-5.40) Hemoglobin 6.5 g/dL (12.0-15.5) Hematocrit 19.4 % (36.0-47.0) Mean Corpuscular Volume 101 fL (79-100) Mean Corpuscular Hemoglobin 34 pg (25-35) Mean Corpuscular Hemoglobin Concent 33 g/dL (31-37) Red Cell Distribution Width 15.4 % (11.5-14.5) Platelet Count 354 x10^3/uL (140-400) Neutrophils (%) (Auto) 82 % (31-73) Lymphocytes (%) (Auto) 12 % (24-48) Monocytes (%) (Auto) 5 % (0-9) Eosinophils (%) (Auto) 1 % (0-3) Basophils (%) (Auto) 1 % (0-3) Neutrophils # (Auto) 29.1 x10^3/uL (1.8-7.7) Lymphocytes # (Auto) 4.1 x10^3/uL (1.0-4.8) Monocytes # (Auto) 1.7 x10^3/uL (0.0-1.1) Eosinophils # (Auto) 0.4 x10^3/uL (0.0-0.7) Basophils # (Auto) 0.2 x10^3/uL (0.0-0.2) Glucose (Fingerstick) 194 mg/dL (70-99) O2 Saturation 93 % (92-99) Arterial Blood pH 7.34 (7.35-7.45) Arterial Blood pCO2 at Patient Temp 47 mmHg (35-46) Arterial Blood pO2 at Patient Temp 73 mmHg (75-108) Arterial Blood HCO3 25 mmol/L (21-28) Arterial Blood Base Excess -1 mmol/L (-3-3) FiO2 40 Medications Active Scripts Medications Dose Route/Sig Max Daily Dose Days Date Category Bisoprolol Fumarate 5 Mg Tablet 10 Mg PO DAILY 07/04/19 Reported Comments Chest x-ray reviewed CT chest 07/17 reviewed Impression . IMPRESSION: 1. Acute hypoxemic respiratory failure secondary to ARDS due to acute pancreatitis, septic shock, abdominal distention, and pneumonia.and pleural effusions. Pleural effusions secondary to abdominal process and/or general volume overload from renal failure. 2. Gallstone pancreatitis. WITH NECROSIS 3. Severe metabolic acidosis. 4. Acute kidney injury. ON CRRT 5. Acute gallstone pancreatitis. 6. Hypoalbuminemia. 7. Hypocalcemia. 8. Leukocytosis 9. Chronic anemia 10. Covid 19 testing negative 11. Acute /chronic anemia suspected hemorrhagic fluid in pelvis Plan . AC mode, no change in current FIO2/ PEEP Not ready for trial Cont AC mode , 40 FIO2/ PEEP. Transfuse today await surgery rec regarding ? blood in pelvis Poor prognosis supportive care CRRT Antibiotics per ID Follow nephrology input Nutritional support with TPN Prognosis is extremely poor d/w RN/ no intervention for effusions cct 35 min VINAYAK LANDRUM MD Jul 19, 2019 10:09
[2019-07-19] MEDS: NOREPINEPHRINE VIAL 8 MG in IV DEXTROSE 5% 250 ML IV PRN (11:34)
--- NOTE | 2019-07-19 12:00 | PDOC ---
Renal-Progress Notes Subjective Notes Notes INTUBATED History of Present Illness Hx of present illness NO CHANGE Vitals Vitals Vital Signs Date Time Temp Pulse Resp B/P (MAP) Pulse Ox O2 Delivery O2 Flow Rate FiO2 07/19/19 11:40 100 6.0 07/19/19 11:00 113 28 114/66 (82) Ventilator 07/19/19 09:55 99.0 99.0 Weight Weight [ ] I.O. Intake and Output Intake and Output 07/19/19 07:00 Intake Total 2651 ml Output Total 540 ml Balance 2111 ml IV Total 2651 ml Output Urine Total 340 ml Gastric Drainage Total 200 ml Labs Labs Laboratory Tests Test 07/18/19 14:18 07/18/19 14:30 07/18/19 17:32 07/18/19 23:33 Glucose (Fingerstick) 237 mg/dL (70-99) 161 mg/dL (70-99) 180 mg/dL (70-99) Sodium Level 137 mmol/L (136-145) Potassium Level 4.4 mmol/L (3.5-5.1) Chloride Level 103 mmol/L (98-107) Carbon Dioxide Level 26 mmol/L (21-32) Anion Gap 8 (6-14) Blood Urea Nitrogen 41 mg/dL (7-20) Creatinine 1.6 mg/dL (0.6-1.0) Estimated GFR (Cockcroft-Gault) 34.3 Glucose Level 244 mg/dL (70-99) Calcium Level 8.1 mg/dL (8.5-10.1) Phosphorus Level 3.0 mg/dL (2.6-4.7) Magnesium Level 2.2 mg/dL (1.8-2.4) Test 07/19/19 00:30 07/19/19 05:30 07/19/19 05:43 07/19/19 08:00 Sodium Level 137 mmol/L (136-145) 138 mmol/L (136-145) Potassium Level 4.1 mmol/L (3.5-5.1) 4.1 mmol/L (3.5-5.1) Chloride Level 104 mmol/L (98-107) 105 mmol/L (98-107) Carbon Dioxide Level 28 mmol/L (21-32) 27 mmol/L (21-32) Anion Gap 5 (6-14) 6 (6-14) Blood Urea Nitrogen 35 mg/dL (7-20) 34 mg/dL (7-20) Creatinine 1.3 mg/dL (0.6-1.0) 1.3 mg/dL (0.6-1.0) Estimated GFR (Cockcroft-Gault) 43.5 43.5 Glucose Level 193 mg/dL (70-99) 185 mg/dL (70-99) Calcium Level 7.9 mg/dL (8.5-10.1) 8.1 mg/dL (8.5-10.1) Phosphorus Level 2.9 mg/dL (2.6-4.7) 2.9 mg/dL (2.6-4.7) Magnesium Level 2.1 mg/dL (1.8-2.4) 2.4 mg/dL (1.8-2.4) White Blood Count 35.5 x10^3/uL (4.0-11.0) Red Blood Count 1.92 x10^6/uL (3.50-5.40) Hemoglobin 6.5 g/dL (12.0-15.5) Hematocrit 19.4 % (36.0-47.0) Mean Corpuscular Volume 101 fL (79-100) Mean Corpuscular Hemoglobin 34 pg (25-35) Mean Corpuscular Hemoglobin Concent 33 g/dL (31-37) Red Cell Distribution Width 15.4 % (11.5-14.5) Platelet Count 354 x10^3/uL (140-400) Neutrophils (%) (Auto) 82 % (31-73) Lymphocytes (%) (Auto) 12 % (24-48) Monocytes (%) (Auto) 5 % (0-9) Eosinophils (%) (Auto) 1 % (0-3) Basophils (%) (Auto) 1 % (0-3) Neutrophils # (Auto) 29.1 x10^3/uL (1.8-7.7) Lymphocytes # (Auto) 4.1 x10^3/uL (1.0-4.8) Monocytes # (Auto) 1.7 x10^3/uL (0.0-1.1) Eosinophils # (Auto) 0.4 x10^3/uL (0.0-0.7) Basophils # (Auto) 0.2 x10^3/uL (0.0-0.2) Glucose (Fingerstick) 194 mg/dL (70-99) O2 Saturation 93 % (92-99) Arterial Blood pH 7.34 (7.35-7.45) Arterial Blood pCO2 at Patient Temp 47 mmHg (35-46) Arterial Blood pO2 at Patient Temp 73 mmHg (75-108) Arterial Blood HCO3 25 mmol/L (21-28) Arterial Blood Base Excess -1 mmol/L (-3-3) FiO2 40 Micro Micro Microbiology 07/12/19 Blood Culture - Final, Complete NO GROWTH AFTER 5 DAYS Review of Systems Constitutional: yes: other (ON THE VENT) Physical Exam General Appearance: other (ON THE VENT) Skin: warm Respiratory: decreased breath sounds Heart: S1S2 Abdomen: soft, bowel sounds present Genitourinary: bladder flat Extremities: pulses present, edema Neurology: other (SEDATED) Assessment Assessment IMP [id number] OF 1.3 ON CRRT ANEMIA LEUCOCYTOSIS ANASARCA DUE TO 3RD SPACING HYPERKALEMIA-RESOLVED ACIDOSIS AND ACIDEMIA-CONTROLLED ACUTE REPS FAILURE ACUTE PANCREATITIS HYPOALBUMINEMIA HYPOCALCEMIA-BETTER PLAN TPN PRBC START HIRAM CONT WITH CRRT-CHANGE PFR TO ZERO CONT SAME RF AND DIALYSATE CT PENDING VENT SUPPORT PRESSORS NEEDED ANTIBIOTICS WILL FOLLOW CCT 30 D/W DR KIRBY VERY POOR PROGNOSIS DONI GARCIA MD Jul 19, 2019 12:00
[2019-07-19 12:28] LABS: CREATININE 1.2 mg/dL (0.6-1.0); GFR 47.7; MAGNESIUM 2.2 mg/dL (1.8-2.4); PHOSPHORUS 2.7 mg/dL (2.6-4.7); POTASSIUM 3.9 mmol/L (3.5-5.1)
[2019-07-19 12:30] LABS: PROTHROMBIN TIME PATIENT 21.3 SEC (11.7-14.0)
[2019-07-19] MEDS: TPN PER PHARMACY MC PRN (13:20)
--- NOTE | 2019-07-19 13:20 | NUR ---
Pharmacy TPN Dosing Note S: SCOTT AVILA is a 48 year old F Currently receiving Central Continuous TPN started 07/06/19 B:Pertinent PMH: Necrotizing pancreatitis Height: 5 feet, 8 inches Weight: 108.5 kg Current diet: NPO LABS: Sodium: 138 Potassium: 4.1 Chloride: 105 Calcium: 8.1 Corrected Calcium: 9.78 Magnesium: 2.4 CO2: 27 SCr: 1.3 Glucose: 180-194 Albumin: 1.9 AST: 37 ALT: 16 TPN FORMULA: TPN TYPE: Central Continuous AMINO ACIDS: 125 gm DEXTROSE: 195 gm LIPIDS: 40 gm SODIUM CHLORIDE: 90 mEq POTASSIUM CHLORIDE: 15 mEq POTASSIUM PHOSPHATE: 18 mmol MAGNESIUM: 8 mEq CALCIUM: 15 mEq INSULIN: 20 units MULTIPLE VITAMIN: 10 ml TRACE ELEMENTS: 0.5 ml(s) TPN PLAN: BG still slightly elevated. Will increase insulin in TPN from 15 units to 20 units. All other electrolytes WNL. Labs per nephrology for CRRT. R: Change TPN as noted above. Will monitor electrolytes, glucose, and tolerance to TPN. MIKAYLA CHU [facility], 07/19/19 1323
--- NOTE | 2019-07-19 13:44 | PDOC ---
[facility] PROGRESS NOTE Chief Complaint Chief Complaint Respiratory failure requiring mechanical ventilation Severe Acute gallstone pancreatitis (not a surgical candidate at this time) Acute kidney failure now requiring dialysis Salpingo--itis Gallstones (Calculus of gallbladder with acute cholecystitis without obstruction) HTN Leukocytosis Hypoxia Uterine fibroid Hypoxia with respiratory failure Intractable pain Intractable nausea Possible Covid 19? History of Present Illness History of Present Illness [id number] Patient seen and examined in the ICU She is critically ill Mechanically ventilated Assist-control/25/450/30 with 8 of PEEP She is on cefepime daptomycin Flagyl and micafungin GEN for antibiotic coverage Also getting TPN and CRRT Sedated with Versed Getting IV albumin also She is tachycardic at 112 bpm Temp max 100.0 White blood count is down from 45,000 35,000 today Chart reviewed Discussed with RN [id number] Patient seen and examined in the ICU She remains very critically ill Going for a CT of the abdomen chest and pelvis Ventilated : On assist control 40% FiO2 Discussed with RN Chart reviewed [id number] Patient seen and examined in the ICU She is still on CRRT although we plan to change to hemodialysis soon Chart reviewed Discussed with RN Hemoglobin down to 6.9 (suspect CRRT related , Will let nephrology consider transfusion while on dialysis) [id number] Patient seen and examined in the ICU She is mechanically ventilated Before meals/25/450/30% Also on CRRT Very critically ill Chart reviewed Discussed with RN [id number] Patient seen and examined in the ICU She is now been transferred to the Covid 19 unit so we can rule out Covid and keep her in isolation Very critically ill Intubated and ventilated Assist control 40% Chart reviewed Discussed with RN Still on CRRT Getting a chest x-ray now Very concerned about her prognosis [id number] Patient seen and examined in the ICU She is extremely critically ill Remains mechanically ventilated with assist control/25/450/40% Also on continuous renal replacement therapy Chart reviewed Discussed with RN She has TPN hanging Also on pressors [id number] Patient seen and examined in the ICU She is still requiring CRRT On the vent with assist control but her FiO2 is down to 40% from yesterday Slightly better but still very critically ill Discussed with RN Chart reviewed [id number] Patient seen and examined in the ICU She remains extremely critically ill On IV fentanyl IV Versed IV Doxy On the vent Assist-control/25/450/70% She is critically ill Discussed with RN Chart reviewed Patient is currently on CRRT as well [id number] Patient seen and examined in the ICU She had to be intubated this morning On assist-control 25/450/100% with 10 of PEEP and only satting 87% She is extremely critically ill I'm not sure if she will survive Chart reviewed Discussed with RN Ms Diaz is a 48yo F w/ PMHx HTN, prediabetes who presents the emergency room complaints of abdominal pain. Patient described off and on 3 days. She states is constant, described as a squeezing sensation in a band-like distribution. + nausea, vomiting. She denies any fever or diarrhea. Patient denies any abdominal surgical procedures. She states is worse with movements, car ride. Pain initially was upper abdomen however now pretty much generalized. Last bowel movement was 07/03/2019. Nothing makes her pain better. Patient denies any shortness of breath. She does state the pain moves into her chest. Denies any headache or visual changes. Lipase 51118, AST 401, ALT 249, Bilirubin 1.4. CT abdomen confirms pancreatic inflammation, peripancreatic fluid and inflammatory changes around the pancreas consistent with pancreatitis. Cholelithiasis and 1.4cm uterine fibroid as well as possible left salpingitis. Admitted for further care GI, General surgery, ID, Pulm consulted. 07/04: Overnight per report no urine output. Added dilaudid for pain, PICC placed per IR. Renal US negative.Seen bedside in ICU, given 2L additional NSS and a lbumin infusion. Still hypotensive, started on levophed. Repeat CT abdomen with necrosis. Updated her fiancee 07/05: Sats are only 87% on nasal cannula oxygen. Dialysis catheter per nephrology 07/06: She is now on BiPAP appears more ill, now on dialysis 07/07: Seen on BiPAP. Her mother and another family member are present and seemed to be good support for her. Currently on dialysis. Appears critically ill 07/08: Overnight Tmax 101.7 , still on BiPAP FiO2 40%, still on low dose Levophed gtt, TPN initiated. On dialysis Overnight still febrile. Dialysis today. She wakes up and responds to pain. No CP. Vitals/I&O Vitals/I&O: Vital Signs Date Time Temp Pulse Resp B/P (MAP) Pulse Ox O2 Delivery O2 Flow Rate FiO2 07/19/19 12:12 100 Ventilator 07/19/19 11:40 6.0 07/19/19 11:00 113 28 114/66 (82) 07/19/19 09:55 99.0 99.0 I & O 07/18/19 07/18/19 07/19/19 15:00 23:00 07:00 Intake Total 700 ml 831 ml 1120 ml Output Total 75 ml 315 ml 150 ml Balance 625 ml 516 ml 970 ml Physical Exam Physical Exam: GENERAL: Orally intubated/sedated - generalizd anasarca HEENT: Mild icterus, pupils equal, ETT, NGT NECK: Supple. LUNGS: Decreased breath sounds at the bases. HEART: S1, S2, regular ABDOMEN: Distended, hypoactive BS, Rectal tube in place : Lind EXTREMITIES: Generalized edema, no cyanosis - some mottling, Rooke boots bilaterally DERMATOLOGIC: Warm and dry. No generalized rash. CENTRAL NERVOUS SYSTEM: Sedated RIJ Temp HDC, RUE-PICC & LIJ - clean General: Other (sedated ) Heart: Other (increased rate) Abdomen: Other (distended, firm) Extremities: No edema, Other (SOME CLUBBING ) Skin: Other (mottling noted to extremities ) Labs Labs: Laboratory Tests Test 07/18/19 14:18 07/18/19 14:30 07/18/19 17:32 07/18/19 23:33 Glucose (Fingerstick) 237 mg/dL (70-99) 161 mg/dL (70-99) 180 mg/dL (70-99) Sodium Level 137 mmol/L (136-145) Potassium Level 4.4 mmol/L (3.5-5.1) Chloride Level 103 mmol/L (98-107) Carbon Dioxide Level 26 mmol/L (21-32) Anion Gap 8 (6-14) Blood Urea Nitrogen 41 mg/dL (7-20) Creatinine 1.6 mg/dL (0.6-1.0) Estimated GFR (Cockcroft-Gault) 34.3 Glucose Level 244 mg/dL (70-99) Calcium Level 8.1 mg/dL (8.5-10.1) Phosphorus Level 3.0 mg/dL (2.6-4.7) Magnesium Level 2.2 mg/dL (1.8-2.4) Test 07/19/19 00:30 07/19/19 05:30 07/19/19 05:43 07/19/19 08:00 Sodium Level 137 mmol/L (136-145) 138 mmol/L (136-145) Potassium Level 4.1 mmol/L (3.5-5.1) 4.1 mmol/L (3.5-5.1) Chloride Level 104 mmol/L (98-107) 105 mmol/L (98-107) Carbon Dioxide Level 28 mmol/L (21-32) 27 mmol/L (21-32) Anion Gap 5 (6-14) 6 (6-14) Blood Urea Nitrogen 35 mg/dL (7-20) 34 mg/dL (7-20) Creatinine 1.3 mg/dL (0.6-1.0) 1.3 mg/dL (0.6-1.0) Estimated GFR (Cockcroft-Gault) 43.5 43.5 Glucose Level 193 mg/dL (70-99) 185 mg/dL (70-99) Calcium Level 7.9 mg/dL (8.5-10.1) 8.1 mg/dL (8.5-10.1) Phosphorus Level 2.9 mg/dL (2.6-4.7) 2.9 mg/dL (2.6-4.7) Magnesium Level 2.1 mg/dL (1.8-2.4) 2.4 mg/dL (1.8-2.4) White Blood Count 35.5 x10^3/uL (4.0-11.0) Red Blood Count 1.92 x10^6/uL (3.50-5.40) Hemoglobin 6.5 g/dL (12.0-15.5) Hematocrit 19.4 % (36.0-47.0) Mean Corpuscular Volume 101 fL (79-100) Mean Corpuscular Hemoglobin 34 pg (25-35) Mean Corpuscular Hemoglobin Concent 33 g/dL (31-37) Red Cell Distribution Width 15.4 % (11.5-14.5) Platelet Count 354 x10^3/uL (140-400) Neutrophils (%) (Auto) 82 % (31-73) Lymphocytes (%) (Auto) 12 % (24-48) Monocytes (%) (Auto) 5 % (0-9) Eosinophils (%) (Auto) 1 % (0-3) Basophils (%) (Auto) 1 % (0-3) Neutrophils # (Auto) 29.1 x10^3/uL (1.8-7.7) Lymphocytes # (Auto) 4.1 x10^3/uL (1.0-4.8) Monocytes # (Auto) 1.7 x10^3/uL (0.0-1.1) Eosinophils # (Auto) 0.4 x10^3/uL (0.0-0.7) Basophils # (Auto) 0.2 x10^3/uL (0.0-0.2) Glucose (Fingerstick) 194 mg/dL (70-99) O2 Saturation 93 % (92-99) Arterial Blood pH 7.34 (7.35-7.45) Arterial Blood pCO2 at Patient Temp 47 mmHg (35-46) Arterial Blood pO2 at Patient Temp 73 mmHg (75-108) Arterial Blood HCO3 25 mmol/L (21-28) Arterial Blood Base Excess -1 mmol/L (-3-3) FiO2 40 Test 07/19/19 12:00 Prothrombin Time 21.3 SEC (11.7-14.0) Prothromb Time International Ratio 1.9 (0.8-1.1) Sodium Level 138 mmol/L (136-145) Potassium Level 3.9 mmol/L (3.5-5.1) Chloride Level 103 mmol/L (98-107) Carbon Dioxide Level 27 mmol/L (21-32) Anion Gap 8 (6-14) Blood Urea Nitrogen 33 mg/dL (7-20) Creatinine 1.2 mg/dL (0.6-1.0) Estimated GFR (Cockcroft-Gault) 47.7 Glucose Level 192 mg/dL (70-99) Calcium Level 8.0 mg/dL (8.5-10.1) Phosphorus Level 2.7 mg/dL (2.6-4.7) Magnesium Level 2.2 mg/dL (1.8-2.4) Review of Systems Review of Systems: Unable to obtain Assessment and Plan Assessmemt and Plan Problems Medical Problems: (1) Acute pancreatitis Status: Acute (2) Cholelithiasis Status: Acute Respiratory failure requiring intubation Severe Acute gallstone pancreatitis (she is not a surgical candidate as she is too ill) Acute kidney failure now requiring dialysis Salpingo--itis Gallstones (Calculus of gallbladder with acute cholecystitis without obstruction) HTN Leukocytosis Hypoxia Uterine fibroid Hypoxia with respiratory failure Intractable pain Intractable nausea Plan I calculated [place]'s criteria with RN patient scores a 9. (This has 100% mortality according to Karina's criteria) For now: CRRT but we are changing to hemodialysis Mechanical ventilation ICU monitoring When necessary transfusions Trend labs especially white count and lipase levels We have consulted GI and general surgery Appreciate pulmonary assistance as well IV antibiotics IV fluids MS narcotics When necessary anti-medics Home meds if possible DVT prophylaxis Full code She is critically ill Total time 39 minutes Comment Review of Relevant I have reviewed the following items kolby (where applicable) has been applied. Medications: Current Medications Medications (Trade) Dose Ordered Sig/Yvon Route PRN Reason Start Time Stop Time Status Last Admin Dose Admin Sodium Chloride 90 meq/Potassium Chloride 15 meq/ Potassium Phosphate 18 mmol/ Magnesium Sulfate 8 meq/Calcium Gluconate 15 meq/ Multivitamins 10 ml/Chromium/ Copper/Manganese/ Seleni/Zn 0.5 ml/ Insulin Human Regular 15 unit/ Total Parenteral Nutrition/Amino Acids/Dextrose/ Fat Emulsion Intravenous 1,400 ml @ 58.333 mls/ hr TPN CONT IV 07/18/19 22:00 07/19/19 21:59 07/18/19 21:47 Hemodynamically unstable?: Yes Is patient in severe pain?: No Is NPO status required?: Yes BEBO KIRBY III DO Jul 19, 2019 13:44
--- NOTE | 2019-07-19 14:05 | PDOC ---
PROGRESS NOTES Assessment Assessment Respiratory failure. Seizure. Metabolic encephalopathy. Fever 102.7 degree. Metabolic acidosis. Diffuse pulmonary infiltrate. Pleural effusion. Pancreatitis Gallstone. Leukocytosis. Electrolytes imbalances. Hyperglycemia. DM. HTN. HLD. Anemia. Obesity. RECOMMENDATIONS/PLAN: Continue life support in ICU at the present time. Keppra if has further seizures. Treat medical diseases. EEG last week: No seizure activity. OBJECTIVE: 07/19/19: No seizures reported over night. Past Medical History Cardiovascular: HTN, Hyperlipidemia Endocrine: Diabetes Family History Unobtainable. Social HistoryU not obtainable Allergies Coded Allergies: Codeine (Verified Allergy, Intermediate, rash, 07/04/19) ROS Unobtainable in unresponsive state. PHYSICAL EXAMINATION: General appearance in sub acute distress. HEENT: Normocephalic and nontraumatic. Eyes, nose, ears, and throat are unremarkable. Neck is supple. No lymphadenopathy. Cardiovascular: S1, S2. Pulmonary: On vent.. Abdomen: Bowel sounds are weak. Extremities: No rash, lesions. NEUROLOGICAL EXAMINATION: Minimal responsiveness. On vent. Not oriented to time, place and person. PERRL. EOMI not elicited, CN: no acute focal findings. Muscle tone: within normal. Muscle strength: No movements to stimuli. DTR: 1 Plantar reflex: No response bilaterally Gait: not able to walk. Sensory exam: no response to stimuli.. Not able to access cerebellar signs. F-T-N test not performed due to unresponsiveness Objective Objective Vital Signs Date Time Temp Pulse Resp B/P (MAP) Pulse Ox O2 Delivery O2 Flow Rate FiO2 07/19/19 13:00 110 25 109/81 (90) 97 Ventilator 07/19/19 12:00 99.8 99.8 07/19/19 11:40 6.0 Intake and Output 07/19/19 06:59 Intake Total 2651 ml Output Total 540 ml Balance 2111 ml IV Total 2651 ml Output Urine Total 340 ml Gastric Drainage Total 200 ml Vitals Signs Vitals VS - Last 72 Hours, by Label Date Time Temp Pulse Resp B/P (MAP) Pulse Ox O2 Delivery O2 Flow Rate FiO2 07/19/19 13:00 110 25 109/81 (90) 97 Ventilator 07/19/19 12:12 100 Ventilator 07/19/19 12:00 Mechanical Ventilator 07/19/19 12:00 99.8 108 25 112/61 (78) 100 Ventilator 99.8 07/19/19 11:40 100 6.0 07/19/19 11:00 113 28 114/66 (82) 100 Ventilator 07/19/19 10:00 114 26 107/78 (88) 98 Ventilator 07/19/19 09:55 99.0 112 26 122/75 99.0 07/19/19 09:18 99.3 113 25 127/65 99.3 07/19/19 09:00 116 25 97/56 (70) 99 Ventilator 07/19/19 08:58 99.9 115 26 110/60 99.9 07/19/19 08:27 98 Ventilator 07/19/19 08:02 99.5 118 25 92/55 99.5 07/19/19 08:00 Mechanical Ventilator 07/19/19 08:00 99.0 114 26 118/61 (80) 99 Ventilator 99.0 07/19/19 07:47 99.0 116 25 114/46 99.0 07/19/19 07:00 114 25 96/62 (73) 99 Ventilator 07/19/19 06:00 115 25 124/93 (103) 100 Ventilator 07/19/19 05:55 98 Ventilator 07/19/19 05:00 111 25 97/61 (73) 100 Ventilator 07/19/19 04:00 99.1 111 25 102/81 (88) 100 Ventilator 99.1 07/19/19 03:50 Mechanical Ventilator 07/19/19 03:30 97 Ventilator 07/19/19 03:00 111 25 96/84 (88) 100 Ventilator 07/19/19 02:03 100 Ventilator 07/19/19 02:00 112 25 102/50 (67) 100 Ventilator 07/19/19 01:33 99 Ventilator 07/19/19 01:00 113 25 115/65 (82) 98 Ventilator 07/19/19 00:25 97 Ventilator 07/19/19 00:00 99.6 114 25 100/57 (71) 99 Ventilator 99.6 07/18/19 23:45 Mechanical Ventilator 07/18/19 23:00 115 25 95/69 (78) 99 Ventilator 07/18/19 22:33 99 Ventilator 07/18/19 22:00 114 25 91/66 (74) 99 Ventilator 07/18/19 21:00 116 25 96/58 (71) 99 Ventilator 07/18/19 20:16 99 Ventilator 07/18/19 20:00 99.5 115 25 96/58 (71) 99 Ventilator 99.5 07/18/19 19:30 Mechanical Ventilator 07/18/19 19:00 116 25 103/52 (69) 99 Ventilator 07/18/19 18:00 122 25 107/57 (74) 99 Ventilator 07/18/19 17:48 97 07/18/19 17:00 116 25 110/55 (73) 99 Ventilator 07/18/19 16:00 Mechanical Ventilator 07/18/19 16:00 100.3 122 25 111/60 (77) 100 Ventilator 100.3 07/18/19 15:55 97 07/18/19 15:16 100 6.0 07/18/19 15:00 100.7 124 25 123/55 (77) 98 Ventilator 100.7 07/18/19 14:46 99 6.0 07/18/19 14:00 118 25 119/53 (75) 99 Ventilator 07/18/19 13:39 98 07/18/19 13:00 126 25 112/52 (72) 98 Ventilator 07/18/19 12:04 100 07/18/19 12:00 100.2 122 25 115/69 (84) 99 Ventilator 100.2 07/18/19 12:00 Mechanical Ventilator 07/18/19 11:00 114 25 102/62 (75) 100 Ventilator 07/18/19 10:00 117 25 105/51 (69) 99 Ventilator 07/18/19 09:00 118 25 90/65 (73) 99 Ventilator 07/18/19 08:00 99.8 121 25 98/78 (85) 99 Ventilator 99.8 07/18/19 08:00 Mechanical Ventilator 07/18/19 07:00 118 26 89/67 (74) 100 Ventilator Laboratory Laboratory Laboratory Tests Test 07/18/19 14:18 07/18/19 14:30 07/18/19 17:32 07/18/19 23:33 Glucose (Fingerstick) 237 mg/dL (70-99) 161 mg/dL (70-99) 180 mg/dL (70-99) Sodium Level 137 mmol/L (136-145) Potassium Level 4.4 mmol/L (3.5-5.1) Chloride Level 103 mmol/L (98-107) Carbon Dioxide Level 26 mmol/L (21-32) Anion Gap 8 (6-14) Blood Urea Nitrogen 41 mg/dL (7-20) Creatinine 1.6 mg/dL (0.6-1.0) Estimated GFR (Cockcroft-Gault) 34.3 Glucose Level 244 mg/dL (70-99) Calcium Level 8.1 mg/dL (8.5-10.1) Phosphorus Level 3.0 mg/dL (2.6-4.7) Magnesium Level 2.2 mg/dL (1.8-2.4) Test 07/19/19 00:30 07/19/19 05:30 07/19/19 05:43 07/19/19 08:00 Sodium Level 137 mmol/L (136-145) 138 mmol/L (136-145) Potassium Level 4.1 mmol/L (3.5-5.1) 4.1 mmol/L (3.5-5.1) Chloride Level 104 mmol/L (98-107) 105 mmol/L (98-107) Carbon Dioxide Level 28 mmol/L (21-32) 27 mmol/L (21-32) Anion Gap 5 (6-14) 6 (6-14) Blood Urea Nitrogen 35 mg/dL (7-20) 34 mg/dL (7-20) Creatinine 1.3 mg/dL (0.6-1.0) 1.3 mg/dL (0.6-1.0) Estimated GFR (Cockcroft-Gault) 43.5 43.5 Glucose Level 193 mg/dL (70-99) 185 mg/dL (70-99) Calcium Level 7.9 mg/dL (8.5-10.1) 8.1 mg/dL (8.5-10.1) Phosphorus Level 2.9 mg/dL (2.6-4.7) 2.9 mg/dL (2.6-4.7) Magnesium Level 2.1 mg/dL (1.8-2.4) 2.4 mg/dL (1.8-2.4) White Blood Count 35.5 x10^3/uL (4.0-11.0) Red Blood Count 1.92 x10^6/uL (3.50-5.40) Hemoglobin 6.5 g/dL (12.0-15.5) Hematocrit 19.4 % (36.0-47.0) Mean Corpuscular Volume 101 fL (79-100) Mean Corpuscular Hemoglobin 34 pg (25-35) Mean Corpuscular Hemoglobin Concent 33 g/dL (31-37) Red Cell Distribution Width 15.4 % (11.5-14.5) Platelet Count 354 x10^3/uL (140-400) Neutrophils (%) (Auto) 82 % (31-73) Lymphocytes (%) (Auto) 12 % (24-48) Monocytes (%) (Auto) 5 % (0-9) Eosinophils (%) (Auto) 1 % (0-3) Basophils (%) (Auto) 1 % (0-3) Neutrophils # (Auto) 29.1 x10^3/uL (1.8-7.7) Lymphocytes # (Auto) 4.1 x10^3/uL (1.0-4.8) Monocytes # (Auto) 1.7 x10^3/uL (0.0-1.1) Eosinophils # (Auto) 0.4 x10^3/uL (0.0-0.7) Basophils # (Auto) 0.2 x10^3/uL (0.0-0.2) Glucose (Fingerstick) 194 mg/dL (70-99) O2 Saturation 93 % (92-99) Arterial Blood pH 7.34 (7.35-7.45) Arterial Blood pCO2 at Patient Temp 47 mmHg (35-46) Arterial Blood pO2 at Patient Temp 73 mmHg (75-108) Arterial Blood HCO3 25 mmol/L (21-28) Arterial Blood Base Excess -1 mmol/L (-3-3) FiO2 40 Test 07/19/19 12:00 Prothrombin Time 21.3 SEC (11.7-14.0) Prothromb Time International Ratio 1.9 (0.8-1.1) Sodium Level 138 mmol/L (136-145) Potassium Level 3.9 mmol/L (3.5-5.1) Chloride Level 103 mmol/L (98-107) Carbon Dioxide Level 27 mmol/L (21-32) Anion Gap 8 (6-14) Blood Urea Nitrogen 33 mg/dL (7-20) Creatinine 1.2 mg/dL (0.6-1.0) Estimated GFR (Cockcroft-Gault) 47.7 Glucose Level 192 mg/dL (70-99) Calcium Level 8.0 mg/dL (8.5-10.1) Phosphorus Level 2.7 mg/dL (2.6-4.7) Magnesium Level 2.2 mg/dL (1.8-2.4) Microbiology 07/12/19 Blood Culture - Final, Complete NO GROWTH AFTER 5 DAYS Medication Medications Current Medications Sodium Chloride 90 meq/Potassium Chloride 15 meq/ Potassium Phosphate 18 mmol/ Magnesium Sulfate 8 meq/Calcium Gluconate 15 meq/ Multivitamins 10 ml/Chromium/ Copper/Manganese/ Seleni/Zn 0.5 ml/ Insulin Human Regular 15 unit/ Total Parenteral Nutrition/Amino Acids/Dextrose/ Fat Emulsion Intravenous 1,400 ml @ 58.333 mls/ hr TPN CONT IV Last administered on 07/18/19at 21:47; Start 07/18/19 at 22:00; Stop 07/19/19 at 21:59 Sodium Chloride 90 meq/Potassium Chloride 15 meq/ Potassium Phosphate 18 mmol/ Magnesium Sulfate 8 meq/Calcium Gluconate 15 meq/ Multivitamins 10 ml/Chromium/ Copper/Manganese/ Seleni/Zn 0.5 ml/ Insulin Human Regular 20 unit/ Total Parenteral Nutrition/Amino Acids/Dextrose/ Fat Emulsion Intravenous 1,400 ml @ 58.333 mls/ hr TPN CONT IV ; Start 07/19/19 at 22:00; Stop 07/20/19 at 21:59 Comment Review of Relevant I have reviewed the following items kolby (where applicable) has been applied. ZANDER ZUÑIGA MD Jul 19, 2019 14:05
[2019-07-19 18:01] LABS: BASO # 0.2 x10^3/uL (0.0-0.2); BASO % 1 % (0-3); EOS # 0.8 x10^3/uL (0.0-0.7); EOS % 2 % (0-3); HEMOGLOBIN 9.3 g/dL (12.0-15.5); LYMPH # 2.4 x10^3/uL (1.0-4.8); LYMPH % 6 % (24-48); MEAN CORPUSCULAR HEMOGLOBIN 32 pg (25-35); MEAN CORPUSCULAR HGB CONC 33 g/dL (31-37); MEAN CORPUSCULAR VOLUME 97 fL (79-100); MONO # 1.9 x10^3/uL (0.0-1.1); MONO % 5 % (0-9); NEUT # 32.1 x10^3/uL (1.8-7.7); NEUT % 86 % (31-73); PLATELET COUNT 307 x10^3/uL (140-400); RED BLOOD COUNT 2.89 x10^6/uL (3.50-5.40); RED CELL DISTRIBUTION WIDTH 17.1 % (11.5-14.5); WHITE BLOOD COUNT 37.4 x10^3/uL (4.0-11.0)
[2019-07-19 18:16] LABS: MAGNESIUM 2.3 mg/dL (1.8-2.4); PHOSPHORUS 3.1 mg/dL (2.6-4.7)
[2019-07-19 18:22] LABS: ALBUMIN 2.5 g/dL (3.4-5.0); ALBUMIN/GLOBULIN RATIO 0.9 (1.0-1.7); CALCIUM 8.1 mg/dL (8.5-10.1); CREATININE 1.2 mg/dL (0.6-1.0); GFR 47.7; POTASSIUM 4.1 mmol/L (3.5-5.1); TOTAL PROTEIN 5.3 g/dL (6.4-8.2)
[2019-07-19] MEDS ORDERED: ALTEPLASE 1MG SYRINGE. INT CAT ONE ×2 (19:30→22:00)
[2019-07-19] MEDS: MIDAZOLAM HCL 100 MG in IV NORMAL SALINE 100ML 100 ML IV PRN (21:33)
[2019-07-19] MEDS ORDERED: TOTAL PARENTERAL NUTRITION IV SCH ×11 (22:00)
[2019-07-19] MEDS ORDERED: [UNRECOGNIZED DRUG - OTHER] IV SCH ×11 (22:00)
[2019-07-19] MEDS ORDERED: DEXTROSE 70% IV SCH ×11 (22:00)
[2019-07-19] MEDS ORDERED: AMINO ACID IV SCH ×11 (22:00)
[2019-07-20] VITALS (24 sets, daily range): BP systolic 93–129; BP diastolic 50–81
[2019-07-20] MEDS: INSULIN LISPRO 300 UNITS/3 ML VIAL. SQ SCH ×4 (00:16→17:18)
[2019-07-20 00:31] LABS: CREATININE 1.1 mg/dL (0.6-1.0); GFR 52.8; MAGNESIUM 2.1 mg/dL (1.8-2.4); PHOSPHORUS 2.9 mg/dL (2.6-4.7); POTASSIUM 4.1 mmol/L (3.5-5.1)
[2019-07-20] MEDS: POTASSIUM CHLORIDE 15 MEQ in DIALYSIS SOLUTION BGK 0/2.5 5,000 ML IV SCH ×29 (03:28→23:15)
[2019-07-20 05:48] LABS: BASO # 0.2 x10^3/uL (0.0-0.2); BASO % 1 % (0-3); EOS # 0.7 x10^3/uL (0.0-0.7); EOS % 2 % (0-3); HEMATOCRIT 27.5 % (36.0-47.0); HEMOGLOBIN 9.1 g/dL (12.0-15.5); LYMPH % 10 % (24-48); MEAN CORPUSCULAR HEMOGLOBIN 32 pg (25-35); MEAN CORPUSCULAR HGB CONC 33 g/dL (31-37); MEAN CORPUSCULAR VOLUME 98 fL (79-100); MONO # 1.7 x10^3/uL (0.0-1.1); MONO % 6 % (0-9); NEUT # 24.4 x10^3/uL (1.8-7.7); NEUT % 81 % (31-73); PLATELET COUNT 281 x10^3/uL (140-400); RED BLOOD COUNT 2.81 x10^6/uL (3.50-5.40); RED CELL DISTRIBUTION WIDTH 16.8 % (11.5-14.5); WHITE BLOOD COUNT 30.1 x10^3/uL (4.0-11.0)
[2019-07-20] MEDS: NOREPINEPHRINE VIAL 8 MG in IV DEXTROSE 5% 250 ML IV PRN ×2 (05:56→23:50)
[2019-07-20 06:06] LABS: ALBUMIN 2.4 g/dL (3.4-5.0); ALBUMIN/GLOBULIN RATIO 0.9 (1.0-1.7); CALCIUM 8.2 mg/dL (8.5-10.1); CREATININE 1.1 mg/dL (0.6-1.0); GFR 52.8; MAGNESIUM 2.3 mg/dL (1.8-2.4); PHOSPHORUS 2.9 mg/dL (2.6-4.7); TOTAL PROTEIN 5.2 g/dL (6.4-8.2)
[2019-07-20 08:10] LABS: BASE EXCESS ABG -4 mmol/L (-3-3); HCO3 ABG 22 mmol/L (21-28); PCO2 ABG 41 mmHg (35-46); PO2 ABG 83 mmHg (75-108); SAT O2 ABG 95 % (92-99)
[2019-07-20 08:11] LABS: FIO2 ABG 30%
--- NOTE | 2019-07-20 08:12 | RAD ---
AP chest. HISTORY: Intubated AP view was taken of the chest. Endotracheal tube stops at the level the clavicles without change. NG tube extends into the stomach. Dialysis catheter is in the superior vena cava. There is a left central line extending to the superior vena cava. There is a right PICC line which is poorly seen with the other tubes and lines. There are bilateral effusions. There is vascular congestion. There is hazy atelectasis or infiltrate or edema in the lung bases. IMPRESSION: 1. No change compared to one day ago. Electronically signed by: Abe Mathias MD (07/20/2019 8:09 AM) [id number]
[2019-07-20] MEDS: PANTOPRAZOLE IV PUSH 40 MG VIAL. IVP SCH (08:15)
--- NOTE | 2019-07-20 08:25 | PDOC ---
Infectious Disease Note Subjective Subjective intubated sedated ROS ROS no n/v/d/ Vital Sign Vital Signs Vital Signs Date Time Temp Pulse Resp B/P (MAP) Pulse Ox O2 Delivery O2 Flow Rate FiO2 07/20/19 08:17 100 Ventilator 07/20/19 08:00 98.4 108 25 118/57 (77) 98.4 07/19/19 12:10 6.0 Physical Exam PHYSICAL EXAM GENERAL: Orally intubated/sedated - generalizd anasarca HEENT: Mild icterus, pupils equal, ETT, NGT NECK: Supple. LUNGS: Decreased breath sounds at the bases. HEART: S1, S2, regular ABDOMEN: Distended, hypoactive BS, Rectal tube in place : Lind EXTREMITIES: Generalized edema, no cyanosis - some mottling, Rooke boots bilaterally DERMATOLOGIC: Warm and dry. No generalized rash. CENTRAL NERVOUS SYSTEM: Sedated RIJ Temp HDC, RUE-PICC & LIJ - clean Labs Lab Laboratory Tests Test 07/19/19 12:00 07/19/19 17:30 07/19/19 17:40 07/20/19 00:10 Prothrombin Time 21.3 SEC (11.7-14.0) Prothromb Time International Ratio 1.9 (0.8-1.1) Sodium Level 138 mmol/L (136-145) 138 mmol/L (136-145) Potassium Level 3.9 mmol/L (3.5-5.1) 4.1 mmol/L (3.5-5.1) Chloride Level 103 mmol/L (98-107) 104 mmol/L (98-107) Carbon Dioxide Level 27 mmol/L (21-32) 28 mmol/L (21-32) Anion Gap 8 (6-14) 6 (6-14) Blood Urea Nitrogen 33 mg/dL (7-20) 33 mg/dL (7-20) Creatinine 1.2 mg/dL (0.6-1.0) 1.2 mg/dL (0.6-1.0) Estimated GFR (Cockcroft-Gault) 47.7 47.7 Glucose Level 192 mg/dL (70-99) 185 mg/dL (70-99) Calcium Level 8.0 mg/dL (8.5-10.1) 8.1 mg/dL (8.5-10.1) Phosphorus Level 2.7 mg/dL (2.6-4.7) 3.1 mg/dL (2.6-4.7) Magnesium Level 2.2 mg/dL (1.8-2.4) 2.3 mg/dL (1.8-2.4) White Blood Count 37.4 x10^3/uL (4.0-11.0) Red Blood Count 2.89 x10^6/uL (3.50-5.40) Hemoglobin 9.3 g/dL (12.0-15.5) Hematocrit 28.0 % (36.0-47.0) Mean Corpuscular Volume 97 fL (79-100) Mean Corpuscular Hemoglobin 32 pg (25-35) Mean Corpuscular Hemoglobin Concent 33 g/dL (31-37) Red Cell Distribution Width 17.1 % (11.5-14.5) Platelet Count 307 x10^3/uL (140-400) Neutrophils (%) (Auto) 86 % (31-73) Lymphocytes (%) (Auto) 6 % (24-48) Monocytes (%) (Auto) 5 % (0-9) Eosinophils (%) (Auto) 2 % (0-3) Basophils (%) (Auto) 1 % (0-3) Neutrophils # (Auto) 32.1 x10^3/uL (1.8-7.7) Lymphocytes # (Auto) 2.4 x10^3/uL (1.0-4.8) Monocytes # (Auto) 1.9 x10^3/uL (0.0-1.1) Eosinophils # (Auto) 0.8 x10^3/uL (0.0-0.7) Basophils # (Auto) 0.2 x10^3/uL (0.0-0.2) BUN/Creatinine Ratio 28 (6-20) Total Bilirubin 1.0 mg/dL (0.2-1.0) Aspartate Amino Transf (AST/SGOT) 50 U/L (15-37) Alanine Aminotransferase (ALT/SGPT) 21 U/L (14-59) Alkaline Phosphatase 128 U/L (46-116) Total Protein 5.3 g/dL (6.4-8.2) Albumin 2.5 g/dL (3.4-5.0) Albumin/Globulin Ratio 0.9 (1.0-1.7) Glucose (Fingerstick) 170 mg/dL (70-99) Test 07/20/19 00:15 07/20/19 05:30 07/20/19 05:37 07/20/19 08:00 Sodium Level 137 mmol/L (136-145) 138 mmol/L (136-145) Potassium Level 4.1 mmol/L (3.5-5.1) 4.0 mmol/L (3.5-5.1) Chloride Level 103 mmol/L (98-107) 104 mmol/L (98-107) Carbon Dioxide Level 28 mmol/L (21-32) 28 mmol/L (21-32) Anion Gap 6 (6-14) 6 (6-14) Blood Urea Nitrogen 32 mg/dL (7-20) 31 mg/dL (7-20) Creatinine 1.1 mg/dL (0.6-1.0) 1.1 mg/dL (0.6-1.0) Estimated GFR (Cockcroft-Gault) 52.8 52.8 Glucose Level 181 mg/dL (70-99) 177 mg/dL (70-99) Calcium Level 8.0 mg/dL (8.5-10.1) 8.2 mg/dL (8.5-10.1) Phosphorus Level 2.9 mg/dL (2.6-4.7) 2.9 mg/dL (2.6-4.7) Magnesium Level 2.1 mg/dL (1.8-2.4) 2.3 mg/dL (1.8-2.4) White Blood Count 30.1 x10^3/uL (4.0-11.0) Red Blood Count 2.81 x10^6/uL (3.50-5.40) Hemoglobin 9.1 g/dL (12.0-15.5) Hematocrit 27.5 % (36.0-47.0) Mean Corpuscular Volume 98 fL (79-100) Mean Corpuscular Hemoglobin 32 pg (25-35) Mean Corpuscular Hemoglobin Concent 33 g/dL (31-37) Red Cell Distribution Width 16.8 % (11.5-14.5) Platelet Count 281 x10^3/uL (140-400) Neutrophils (%) (Auto) 81 % (31-73) Lymphocytes (%) (Auto) 10 % (24-48) Monocytes (%) (Auto) 6 % (0-9) Eosinophils (%) (Auto) 2 % (0-3) Basophils (%) (Auto) 1 % (0-3) Neutrophils # (Auto) 24.4 x10^3/uL (1.8-7.7) Lymphocytes # (Auto) 3.0 x10^3/uL (1.0-4.8) Monocytes # (Auto) 1.7 x10^3/uL (0.0-1.1) Eosinophils # (Auto) 0.7 x10^3/uL (0.0-0.7) Basophils # (Auto) 0.2 x10^3/uL (0.0-0.2) BUN/Creatinine Ratio 28 (6-20) Total Bilirubin 1.0 mg/dL (0.2-1.0) Aspartate Amino Transf (AST/SGOT) 46 U/L (15-37) Alanine Aminotransferase (ALT/SGPT) 20 U/L (14-59) Alkaline Phosphatase 119 U/L (46-116) Total Protein 5.2 g/dL (6.4-8.2) Albumin 2.4 g/dL (3.4-5.0) Albumin/Globulin Ratio 0.9 (1.0-1.7) Glucose (Fingerstick) 182 mg/dL (70-99) O2 Saturation 95 % (92-99) Arterial Blood pH 7.34 (7.35-7.45) Arterial Blood pCO2 at Patient Temp 41 mmHg (35-46) Arterial Blood pO2 at Patient Temp 83 mmHg (75-108) Arterial Blood HCO3 22 mmol/L (21-28) Arterial Blood Base Excess -4 mmol/L (-3-3) FiO2 30% Micro Microbiology 07/12/19 Blood Culture - Final, Complete NO GROWTH AFTER 5 DAYS Objective Assessment Leukocytosis - - ? reactive - trouble with CRRT/S/p PRBCs ? intra-abdominal Fever - better - Flu neg antigen 07/13 ? reactive with pancreatitis vs ID - C- diff neg. S/p HD cath change with malfunction 07/12 - cults 07/11 neg Lung opacities, COVID-19 neg Hypotension Acute pancreatitis, early developing necrosis -U/S 07/13 reviewed JUANA,Hyperkalemia, Metabolic acidosis on CRRT - s/p RIJ temporary dialysis catheter replacement, 07/12 Anasarca - worse Acute hypoxic resp failure, intubated ? developing peripheral ischemia - better Cholelithiasis Anemia - S/p PRBC 07/13 Hypocalcemia Prediabetes HTN Plan Plan of Care Continue Dapto/cefepime (07/12), Flagyl and micafungin (07/10) -Previously on Merrem, Zyvox F/u Blood cults 07/11 so far neg No surgical plans at this time Maintain aspiration precautions Airborne isolation d/c'd. COVID-19 neg Repeat CBC need ct chest, abd and pelvis,,, noted d/w GI D/w nursing Critically ill KIMMY JONES MD Jul 20, 2019 08:25
[2019-07-20] MEDS: MICAFUNGIN 100 MG in IV DEXTROSE 5% 100ML 100 ML IV SCH (08:30)
[2019-07-20] MEDS: CEFEPIME HCL IV Push 2 GM VIAL. IVP SCH ×2 (08:30→20:53)
--- NOTE | 2019-07-20 10:00 | PDOC ---
SURGICAL PROGRESS NOTE Subjective Pt sedated on vent, reasonably stable Vital Signs Vital Signs Date Time Temp Pulse Resp B/P (MAP) Pulse Ox O2 Delivery O2 Flow Rate FiO2 07/20/19 09:00 106 25 93/67 (76) 100 Ventilator 07/20/19 08:00 98.4 98.4 07/19/19 12:10 6.0 I&O Intake and Output 07/20/19 07:00 Intake Total 3278 ml Output Total 555 ml Balance 2723 ml IV Total 2598 ml Blood Product 630 ml Blood Product IV Normal Saline Flush 50 ml Output Urine Total 430 ml Gastric Drainage Total 125 ml General: No acute distress Abdomen: Soft, Other (distended, NTTP) Labs Laboratory Tests Test 07/18/19 14:18 07/18/19 14:30 07/18/19 17:32 07/18/19 23:33 Glucose (Fingerstick) 237 mg/dL (70-99) 161 mg/dL (70-99) 180 mg/dL (70-99) Sodium Level 137 mmol/L (136-145) Potassium Level 4.4 mmol/L (3.5-5.1) Chloride Level 103 mmol/L (98-107) Carbon Dioxide Level 26 mmol/L (21-32) Anion Gap 8 (6-14) Blood Urea Nitrogen 41 mg/dL (7-20) Creatinine 1.6 mg/dL (0.6-1.0) Estimated GFR (Cockcroft-Gault) 34.3 Glucose Level 244 mg/dL (70-99) Calcium Level 8.1 mg/dL (8.5-10.1) Phosphorus Level 3.0 mg/dL (2.6-4.7) Magnesium Level 2.2 mg/dL (1.8-2.4) Test 07/19/19 00:30 07/19/19 05:30 07/19/19 05:43 07/19/19 08:00 Sodium Level 137 mmol/L (136-145) 138 mmol/L (136-145) Potassium Level 4.1 mmol/L (3.5-5.1) 4.1 mmol/L (3.5-5.1) Chloride Level 104 mmol/L (98-107) 105 mmol/L (98-107) Carbon Dioxide Level 28 mmol/L (21-32) 27 mmol/L (21-32) Anion Gap 5 (6-14) 6 (6-14) Blood Urea Nitrogen 35 mg/dL (7-20) 34 mg/dL (7-20) Creatinine 1.3 mg/dL (0.6-1.0) 1.3 mg/dL (0.6-1.0) Estimated GFR (Cockcroft-Gault) 43.5 43.5 Glucose Level 193 mg/dL (70-99) 185 mg/dL (70-99) Calcium Level 7.9 mg/dL (8.5-10.1) 8.1 mg/dL (8.5-10.1) Phosphorus Level 2.9 mg/dL (2.6-4.7) 2.9 mg/dL (2.6-4.7) Magnesium Level 2.1 mg/dL (1.8-2.4) 2.4 mg/dL (1.8-2.4) White Blood Count 35.5 x10^3/uL (4.0-11.0) Red Blood Count 1.92 x10^6/uL (3.50-5.40) Hemoglobin 6.5 g/dL (12.0-15.5) Hematocrit 19.4 % (36.0-47.0) Mean Corpuscular Volume 101 fL (79-100) Mean Corpuscular Hemoglobin 34 pg (25-35) Mean Corpuscular Hemoglobin Concent 33 g/dL (31-37) Red Cell Distribution Width 15.4 % (11.5-14.5) Platelet Count 354 x10^3/uL (140-400) Neutrophils (%) (Auto) 82 % (31-73) Lymphocytes (%) (Auto) 12 % (24-48) Monocytes (%) (Auto) 5 % (0-9) Eosinophils (%) (Auto) 1 % (0-3) Basophils (%) (Auto) 1 % (0-3) Neutrophils # (Auto) 29.1 x10^3/uL (1.8-7.7) Lymphocytes # (Auto) 4.1 x10^3/uL (1.0-4.8) Monocytes # (Auto) 1.7 x10^3/uL (0.0-1.1) Eosinophils # (Auto) 0.4 x10^3/uL (0.0-0.7) Basophils # (Auto) 0.2 x10^3/uL (0.0-0.2) Glucose (Fingerstick) 194 mg/dL (70-99) O2 Saturation 93 % (92-99) Arterial Blood pH 7.34 (7.35-7.45) Arterial Blood pCO2 at Patient Temp 47 mmHg (35-46) Arterial Blood pO2 at Patient Temp 73 mmHg (75-108) Arterial Blood HCO3 25 mmol/L (21-28) Arterial Blood Base Excess -1 mmol/L (-3-3) FiO2 40 Test 07/19/19 12:00 07/19/19 17:30 07/19/19 17:40 07/20/19 00:10 Prothrombin Time 21.3 SEC (11.7-14.0) Prothromb Time International Ratio 1.9 (0.8-1.1) Sodium Level 138 mmol/L (136-145) 138 mmol/L (136-145) Potassium Level 3.9 mmol/L (3.5-5.1) 4.1 mmol/L (3.5-5.1) Chloride Level 103 mmol/L (98-107) 104 mmol/L (98-107) Carbon Dioxide Level 27 mmol/L (21-32) 28 mmol/L (21-32) Anion Gap 8 (6-14) 6 (6-14) Blood Urea Nitrogen 33 mg/dL (7-20) 33 mg/dL (7-20) Creatinine 1.2 mg/dL (0.6-1.0) 1.2 mg/dL (0.6-1.0) Estimated GFR (Cockcroft-Gault) 47.7 47.7 Glucose Level 192 mg/dL (70-99) 185 mg/dL (70-99) Calcium Level 8.0 mg/dL (8.5-10.1) 8.1 mg/dL (8.5-10.1) Phosphorus Level 2.7 mg/dL (2.6-4.7) 3.1 mg/dL (2.6-4.7) Magnesium Level 2.2 mg/dL (1.8-2.4) 2.3 mg/dL (1.8-2.4) White Blood Count 37.4 x10^3/uL (4.0-11.0) Red Blood Count 2.89 x10^6/uL (3.50-5.40) Hemoglobin 9.3 g/dL (12.0-15.5) Hematocrit 28.0 % (36.0-47.0) Mean Corpuscular Volume 97 fL (79-100) Mean Corpuscular Hemoglobin 32 pg (25-35) Mean Corpuscular Hemoglobin Concent 33 g/dL (31-37) Red Cell Distribution Width 17.1 % (11.5-14.5) Platelet Count 307 x10^3/uL (140-400) Neutrophils (%) (Auto) 86 % (31-73) Lymphocytes (%) (Auto) 6 % (24-48) Monocytes (%) (Auto) 5 % (0-9) Eosinophils (%) (Auto) 2 % (0-3) Basophils (%) (Auto) 1 % (0-3) Neutrophils # (Auto) 32.1 x10^3/uL (1.8-7.7) Lymphocytes # (Auto) 2.4 x10^3/uL (1.0-4.8) Monocytes # (Auto) 1.9 x10^3/uL (0.0-1.1) Eosinophils # (Auto) 0.8 x10^3/uL (0.0-0.7) Basophils # (Auto) 0.2 x10^3/uL (0.0-0.2) BUN/Creatinine Ratio 28 (6-20) Total Bilirubin 1.0 mg/dL (0.2-1.0) Aspartate Amino Transf (AST/SGOT) 50 U/L (15-37) Alanine Aminotransferase (ALT/SGPT) 21 U/L (14-59) Alkaline Phosphatase 128 U/L (46-116) Total Protein 5.3 g/dL (6.4-8.2) Albumin 2.5 g/dL (3.4-5.0) Albumin/Globulin Ratio 0.9 (1.0-1.7) Glucose (Fingerstick) 170 mg/dL (70-99) Test 07/20/19 00:15 07/20/19 05:30 07/20/19 05:37 07/20/19 08:00 Sodium Level 137 mmol/L (136-145) 138 mmol/L (136-145) Potassium Level 4.1 mmol/L (3.5-5.1) 4.0 mmol/L (3.5-5.1) Chloride Level 103 mmol/L (98-107) 104 mmol/L (98-107) Carbon Dioxide Level 28 mmol/L (21-32) 28 mmol/L (21-32) Anion Gap 6 (6-14) 6 (6-14) Blood Urea Nitrogen 32 mg/dL (7-20) 31 mg/dL (7-20) Creatinine 1.1 mg/dL (0.6-1.0) 1.1 mg/dL (0.6-1.0) Estimated GFR (Cockcroft-Gault) 52.8 52.8 Glucose Level 181 mg/dL (70-99) 177 mg/dL (70-99) Calcium Level 8.0 mg/dL (8.5-10.1) 8.2 mg/dL (8.5-10.1) Phosphorus Level 2.9 mg/dL (2.6-4.7) 2.9 mg/dL (2.6-4.7) Magnesium Level 2.1 mg/dL (1.8-2.4) 2.3 mg/dL (1.8-2.4) White Blood Count 30.1 x10^3/uL (4.0-11.0) Red Blood Count 2.81 x10^6/uL (3.50-5.40) Hemoglobin 9.1 g/dL (12.0-15.5) Hematocrit 27.5 % (36.0-47.0) Mean Corpuscular Volume 98 fL (79-100) Mean Corpuscular Hemoglobin 32 pg (25-35) Mean Corpuscular Hemoglobin Concent 33 g/dL (31-37) Red Cell Distribution Width 16.8 % (11.5-14.5) Platelet Count 281 x10^3/uL (140-400) Neutrophils (%) (Auto) 81 % (31-73) Lymphocytes (%) (Auto) 10 % (24-48) Monocytes (%) (Auto) 6 % (0-9) Eosinophils (%) (Auto) 2 % (0-3) Basophils (%) (Auto) 1 % (0-3) Neutrophils # (Auto) 24.4 x10^3/uL (1.8-7.7) Lymphocytes # (Auto) 3.0 x10^3/uL (1.0-4.8) Monocytes # (Auto) 1.7 x10^3/uL (0.0-1.1) Eosinophils # (Auto) 0.7 x10^3/uL (0.0-0.7) Basophils # (Auto) 0.2 x10^3/uL (0.0-0.2) BUN/Creatinine Ratio 28 (6-20) Total Bilirubin 1.0 mg/dL (0.2-1.0) Aspartate Amino Transf (AST/SGOT) 46 U/L (15-37) Alanine Aminotransferase (ALT/SGPT) 20 U/L (14-59) Alkaline Phosphatase 119 U/L (46-116) Total Protein 5.2 g/dL (6.4-8.2) Albumin 2.4 g/dL (3.4-5.0) Albumin/Globulin Ratio 0.9 (1.0-1.7) Glucose (Fingerstick) 182 mg/dL (70-99) O2 Saturation 95 % (92-99) Arterial Blood pH 7.34 (7.35-7.45) Arterial Blood pCO2 at Patient Temp 41 mmHg (35-46) Arterial Blood pO2 at Patient Temp 83 mmHg (75-108) Arterial Blood HCO3 22 mmol/L (21-28) Arterial Blood Base Excess -4 mmol/L (-3-3) FiO2 30% Laboratory Tests Test 07/19/19 12:00 07/19/19 17:30 07/19/19 17:40 07/20/19 00:10 Prothrombin Time 21.3 SEC (11.7-14.0) Prothromb Time International Ratio 1.9 (0.8-1.1) Sodium Level 138 mmol/L (136-145) 138 mmol/L (136-145) Potassium Level 3.9 mmol/L (3.5-5.1) 4.1 mmol/L (3.5-5.1) Chloride Level 103 mmol/L (98-107) 104 mmol/L (98-107) Carbon Dioxide Level 27 mmol/L (21-32) 28 mmol/L (21-32) Anion Gap 8 (6-14) 6 (6-14) Blood Urea Nitrogen 33 mg/dL (7-20) 33 mg/dL (7-20) Creatinine 1.2 mg/dL (0.6-1.0) 1.2 mg/dL (0.6-1.0) Estimated GFR (Cockcroft-Gault) 47.7 47.7 Glucose Level 192 mg/dL (70-99) 185 mg/dL (70-99) Calcium Level 8.0 mg/dL (8.5-10.1) 8.1 mg/dL (8.5-10.1) Phosphorus Level 2.7 mg/dL (2.6-4.7) 3.1 mg/dL (2.6-4.7) Magnesium Level 2.2 mg/dL (1.8-2.4) 2.3 mg/dL (1.8-2.4) White Blood Count 37.4 x10^3/uL (4.0-11.0) Red Blood Count 2.89 x10^6/uL (3.50-5.40) Hemoglobin 9.3 g/dL (12.0-15.5) Hematocrit 28.0 % (36.0-47.0) Mean Corpuscular Volume 97 fL (79-100) Mean Corpuscular Hemoglobin 32 pg (25-35) Mean Corpuscular Hemoglobin Concent 33 g/dL (31-37) Red Cell Distribution Width 17.1 % (11.5-14.5) Platelet Count 307 x10^3/uL (140-400) Neutrophils (%) (Auto) 86 % (31-73) Lymphocytes (%) (Auto) 6 % (24-48) Monocytes (%) (Auto) 5 % (0-9) Eosinophils (%) (Auto) 2 % (0-3) Basophils (%) (Auto) 1 % (0-3) Neutrophils # (Auto) 32.1 x10^3/uL (1.8-7.7) Lymphocytes # (Auto) 2.4 x10^3/uL (1.0-4.8) Monocytes # (Auto) 1.9 x10^3/uL (0.0-1.1) Eosinophils # (Auto) 0.8 x10^3/uL (0.0-0.7) Basophils # (Auto) 0.2 x10^3/uL (0.0-0.2) BUN/Creatinine Ratio 28 (6-20) Total Bilirubin 1.0 mg/dL (0.2-1.0) Aspartate Amino Transf (AST/SGOT) 50 U/L (15-37) Alanine Aminotransferase (ALT/SGPT) 21 U/L (14-59) Alkaline Phosphatase 128 U/L (46-116) Total Protein 5.3 g/dL (6.4-8.2) Albumin 2.5 g/dL (3.4-5.0) Albumin/Globulin Ratio 0.9 (1.0-1.7) Glucose (Fingerstick) 170 mg/dL (70-99) Test 07/20/19 00:15 07/20/19 05:30 07/20/19 05:37 07/20/19 08:00 Sodium Level 137 mmol/L (136-145) 138 mmol/L (136-145) Potassium Level 4.1 mmol/L (3.5-5.1) 4.0 mmol/L (3.5-5.1) Chloride Level 103 mmol/L (98-107) 104 mmol/L (98-107) Carbon Dioxide Level 28 mmol/L (21-32) 28 mmol/L (21-32) Anion Gap 6 (6-14) 6 (6-14) Blood Urea Nitrogen 32 mg/dL (7-20) 31 mg/dL (7-20) Creatinine 1.1 mg/dL (0.6-1.0) 1.1 mg/dL (0.6-1.0) Estimated GFR (Cockcroft-Gault) 52.8 52.8 Glucose Level 181 mg/dL (70-99) 177 mg/dL (70-99) Calcium Level 8.0 mg/dL (8.5-10.1) 8.2 mg/dL (8.5-10.1) Phosphorus Level 2.9 mg/dL (2.6-4.7) 2.9 mg/dL (2.6-4.7) Magnesium Level 2.1 mg/dL (1.8-2.4) 2.3 mg/dL (1.8-2.4) White Blood Count 30.1 x10^3/uL (4.0-11.0) Red Blood Count 2.81 x10^6/uL (3.50-5.40) Hemoglobin 9.1 g/dL (12.0-15.5) Hematocrit 27.5 % (36.0-47.0) Mean Corpuscular Volume 98 fL (79-100) Mean Corpuscular Hemoglobin 32 pg (25-35) Mean Corpuscular Hemoglobin Concent 33 g/dL (31-37) Red Cell Distribution Width 16.8 % (11.5-14.5) Platelet Count 281 x10^3/uL (140-400) Neutrophils (%) (Auto) 81 % (31-73) Lymphocytes (%) (Auto) 10 % (24-48) Monocytes (%) (Auto) 6 % (0-9) Eosinophils (%) (Auto) 2 % (0-3) Basophils (%) (Auto) 1 % (0-3) Neutrophils # (Auto) 24.4 x10^3/uL (1.8-7.7) Lymphocytes # (Auto) 3.0 x10^3/uL (1.0-4.8) Monocytes # (Auto) 1.7 x10^3/uL (0.0-1.1) Eosinophils # (Auto) 0.7 x10^3/uL (0.0-0.7) Basophils # (Auto) 0.2 x10^3/uL (0.0-0.2) BUN/Creatinine Ratio 28 (6-20) Total Bilirubin 1.0 mg/dL (0.2-1.0) Aspartate Amino Transf (AST/SGOT) 46 U/L (15-37) Alanine Aminotransferase (ALT/SGPT) 20 U/L (14-59) Alkaline Phosphatase 119 U/L (46-116) Total Protein 5.2 g/dL (6.4-8.2) Albumin 2.4 g/dL (3.4-5.0) Albumin/Globulin Ratio 0.9 (1.0-1.7) Glucose (Fingerstick) 182 mg/dL (70-99) O2 Saturation 95 % (92-99) Arterial Blood pH 7.34 (7.35-7.45) Arterial Blood pCO2 at Patient Temp 41 mmHg (35-46) Arterial Blood pO2 at Patient Temp 83 mmHg (75-108) Arterial Blood HCO3 22 mmol/L (21-28) Arterial Blood Base Excess -4 mmol/L (-3-3) FiO2 30% Problem List Problems Medical Problems: (1) Acute pancreatitis Status: Acute (2) Cholelithiasis Status: Acute Assessment/Plan severe pancreatitis cont supportive care would favor proceeding with tracheostomy will tentatively plan july 24. DAVON SIMMS MD Jul 20, 2019 10:00
--- NOTE | 2019-07-20 10:42 | PDOC ---
Objective: Objective: D/w nurse and Dr. Neri, reviewed surg note. Vital Signs: Vital Signs Date Time Temp Pulse Resp B/P (MAP) Pulse Ox O2 Delivery O2 Flow Rate FiO2 07/20/19 10:00 107 25 122/69 (86) 100 Ventilator 07/20/19 08:00 98.4 98.4 07/19/19 12:10 6.0 Labs: Laboratory Tests Test 07/19/19 12:00 07/19/19 17:30 07/19/19 17:40 07/20/19 00:10 Prothrombin Time 21.3 SEC Prothromb Time International Ratio 1.9 Sodium Level 138 mmol/L 138 mmol/L Potassium Level 3.9 mmol/L 4.1 mmol/L Chloride Level 103 mmol/L 104 mmol/L Carbon Dioxide Level 27 mmol/L 28 mmol/L Anion Gap 8 6 Blood Urea Nitrogen 33 mg/dL 33 mg/dL Creatinine 1.2 mg/dL 1.2 mg/dL Estimated GFR (Cockcroft-Gault) 47.7 47.7 Glucose Level 192 mg/dL 185 mg/dL Calcium Level 8.0 mg/dL 8.1 mg/dL Phosphorus Level 2.7 mg/dL 3.1 mg/dL Magnesium Level 2.2 mg/dL 2.3 mg/dL White Blood Count 37.4 x10^3/uL Red Blood Count 2.89 x10^6/uL Hemoglobin 9.3 g/dL Hematocrit 28.0 % Mean Corpuscular Volume 97 fL Mean Corpuscular Hemoglobin 32 pg Mean Corpuscular Hemoglobin Concent 33 g/dL Red Cell Distribution Width 17.1 % Platelet Count 307 x10^3/uL Neutrophils (%) (Auto) 86 % Lymphocytes (%) (Auto) 6 % Monocytes (%) (Auto) 5 % Eosinophils (%) (Auto) 2 % Basophils (%) (Auto) 1 % Neutrophils # (Auto) 32.1 x10^3/uL Lymphocytes # (Auto) 2.4 x10^3/uL Monocytes # (Auto) 1.9 x10^3/uL Eosinophils # (Auto) 0.8 x10^3/uL Basophils # (Auto) 0.2 x10^3/uL BUN/Creatinine Ratio 28 Total Bilirubin 1.0 mg/dL Aspartate Amino Transf (AST/SGOT) 50 U/L Alanine Aminotransferase (ALT/SGPT) 21 U/L Alkaline Phosphatase 128 U/L Total Protein 5.3 g/dL Albumin 2.5 g/dL Albumin/Globulin Ratio 0.9 Glucose (Fingerstick) 170 mg/dL Test 07/20/19 00:15 07/20/19 05:30 07/20/19 05:37 07/20/19 08:00 Sodium Level 137 mmol/L 138 mmol/L Potassium Level 4.1 mmol/L 4.0 mmol/L Chloride Level 103 mmol/L 104 mmol/L Carbon Dioxide Level 28 mmol/L 28 mmol/L Anion Gap 6 6 Blood Urea Nitrogen 32 mg/dL 31 mg/dL Creatinine 1.1 mg/dL 1.1 mg/dL Estimated GFR (Cockcroft-Gault) 52.8 52.8 Glucose Level 181 mg/dL 177 mg/dL Calcium Level 8.0 mg/dL 8.2 mg/dL Phosphorus Level 2.9 mg/dL 2.9 mg/dL Magnesium Level 2.1 mg/dL 2.3 mg/dL White Blood Count 30.1 x10^3/uL Red Blood Count 2.81 x10^6/uL Hemoglobin 9.1 g/dL Hematocrit 27.5 % Mean Corpuscular Volume 98 fL Mean Corpuscular Hemoglobin 32 pg Mean Corpuscular Hemoglobin Concent 33 g/dL Red Cell Distribution Width 16.8 % Platelet Count 281 x10^3/uL Neutrophils (%) (Auto) 81 % Lymphocytes (%) (Auto) 10 % Monocytes (%) (Auto) 6 % Eosinophils (%) (Auto) 2 % Basophils (%) (Auto) 1 % Neutrophils # (Auto) 24.4 x10^3/uL Lymphocytes # (Auto) 3.0 x10^3/uL Monocytes # (Auto) 1.7 x10^3/uL Eosinophils # (Auto) 0.7 x10^3/uL Basophils # (Auto) 0.2 x10^3/uL BUN/Creatinine Ratio 28 Total Bilirubin 1.0 mg/dL Aspartate Amino Transf (AST/SGOT) 46 U/L Alanine Aminotransferase (ALT/SGPT) 20 U/L Alkaline Phosphatase 119 U/L Total Protein 5.2 g/dL Albumin 2.4 g/dL Albumin/Globulin Ratio 0.9 Glucose (Fingerstick) 182 mg/dL O2 Saturation 95 % Arterial Blood pH 7.34 Arterial Blood pCO2 at Patient Temp 41 mmHg Arterial Blood pO2 at Patient Temp 83 mmHg Arterial Blood HCO3 22 mmol/L Arterial Blood Base Excess -4 mmol/L FiO2 30% Imaging: CXR 07/19 IMPRESSION: 1. No change compared to one day ago. PE: GEN: intubated on CRRT LUNGS: vent, clear HEART: RRR ABD: stable, not firm NEURO/PSYCH: sedated A/P: Gallstone pancreatitis, MOSF -- Poor surgical candidate, continue support. Hemodynamically unstable?: Yes Is patient in severe pain?: No Is NPO status required?: Yes CYNDEE FALCON Jul 20, 2019 10:42
--- NOTE | 2019-07-20 11:02 | NUR ---
SS following up with discharge planning. SS discussed with RNAbby. Pt remains on the vent and CRRT at this time. Pt is self pay pt. [facility] continuing to follow for self pay status. SS will continue to follow for discharge planning.
--- NOTE | 2019-07-20 11:35 | PDOC ---
Renal-Progress Notes Subjective Notes Notes NOTHING NEW History of Present Illness Hx of present illness REMAINS CRITICALLY ILL Vitals Vitals Vital Signs Date Time Temp Pulse Resp B/P (MAP) Pulse Ox O2 Delivery O2 Flow Rate FiO2 07/20/19 11:00 109 25 124/57 (79) 100 Ventilator 07/20/19 08:00 98.4 98.4 07/19/19 12:10 6.0 Weight Weight [ ] I.O. Intake and Output Intake and Output 07/20/19 07:00 Intake Total 3278 ml Output Total 555 ml Balance 2723 ml IV Total 2598 ml Blood Product 630 ml Blood Product IV Normal Saline Flush 50 ml Output Urine Total 430 ml Gastric Drainage Total 125 ml Labs Labs Laboratory Tests Test 07/19/19 12:00 07/19/19 17:30 07/19/19 17:40 07/20/19 00:10 Prothrombin Time 21.3 SEC (11.7-14.0) Prothromb Time International Ratio 1.9 (0.8-1.1) Sodium Level 138 mmol/L (136-145) 138 mmol/L (136-145) Potassium Level 3.9 mmol/L (3.5-5.1) 4.1 mmol/L (3.5-5.1) Chloride Level 103 mmol/L (98-107) 104 mmol/L (98-107) Carbon Dioxide Level 27 mmol/L (21-32) 28 mmol/L (21-32) Anion Gap 8 (6-14) 6 (6-14) Blood Urea Nitrogen 33 mg/dL (7-20) 33 mg/dL (7-20) Creatinine 1.2 mg/dL (0.6-1.0) 1.2 mg/dL (0.6-1.0) Estimated GFR (Cockcroft-Gault) 47.7 47.7 Glucose Level 192 mg/dL (70-99) 185 mg/dL (70-99) Calcium Level 8.0 mg/dL (8.5-10.1) 8.1 mg/dL (8.5-10.1) Phosphorus Level 2.7 mg/dL (2.6-4.7) 3.1 mg/dL (2.6-4.7) Magnesium Level 2.2 mg/dL (1.8-2.4) 2.3 mg/dL (1.8-2.4) White Blood Count 37.4 x10^3/uL (4.0-11.0) Red Blood Count 2.89 x10^6/uL (3.50-5.40) Hemoglobin 9.3 g/dL (12.0-15.5) Hematocrit 28.0 % (36.0-47.0) Mean Corpuscular Volume 97 fL (79-100) Mean Corpuscular Hemoglobin 32 pg (25-35) Mean Corpuscular Hemoglobin Concent 33 g/dL (31-37) Red Cell Distribution Width 17.1 % (11.5-14.5) Platelet Count 307 x10^3/uL (140-400) Neutrophils (%) (Auto) 86 % (31-73) Lymphocytes (%) (Auto) 6 % (24-48) Monocytes (%) (Auto) 5 % (0-9) Eosinophils (%) (Auto) 2 % (0-3) Basophils (%) (Auto) 1 % (0-3) Neutrophils # (Auto) 32.1 x10^3/uL (1.8-7.7) Lymphocytes # (Auto) 2.4 x10^3/uL (1.0-4.8) Monocytes # (Auto) 1.9 x10^3/uL (0.0-1.1) Eosinophils # (Auto) 0.8 x10^3/uL (0.0-0.7) Basophils # (Auto) 0.2 x10^3/uL (0.0-0.2) BUN/Creatinine Ratio 28 (6-20) Total Bilirubin 1.0 mg/dL (0.2-1.0) Aspartate Amino Transf (AST/SGOT) 50 U/L (15-37) Alanine Aminotransferase (ALT/SGPT) 21 U/L (14-59) Alkaline Phosphatase 128 U/L (46-116) Total Protein 5.3 g/dL (6.4-8.2) Albumin 2.5 g/dL (3.4-5.0) Albumin/Globulin Ratio 0.9 (1.0-1.7) Glucose (Fingerstick) 170 mg/dL (70-99) Test 07/20/19 00:15 07/20/19 05:30 07/20/19 05:37 07/20/19 08:00 Sodium Level 137 mmol/L (136-145) 138 mmol/L (136-145) Potassium Level 4.1 mmol/L (3.5-5.1) 4.0 mmol/L (3.5-5.1) Chloride Level 103 mmol/L (98-107) 104 mmol/L (98-107) Carbon Dioxide Level 28 mmol/L (21-32) 28 mmol/L (21-32) Anion Gap 6 (6-14) 6 (6-14) Blood Urea Nitrogen 32 mg/dL (7-20) 31 mg/dL (7-20) Creatinine 1.1 mg/dL (0.6-1.0) 1.1 mg/dL (0.6-1.0) Estimated GFR (Cockcroft-Gault) 52.8 52.8 Glucose Level 181 mg/dL (70-99) 177 mg/dL (70-99) Calcium Level 8.0 mg/dL (8.5-10.1) 8.2 mg/dL (8.5-10.1) Phosphorus Level 2.9 mg/dL (2.6-4.7) 2.9 mg/dL (2.6-4.7) Magnesium Level 2.1 mg/dL (1.8-2.4) 2.3 mg/dL (1.8-2.4) White Blood Count 30.1 x10^3/uL (4.0-11.0) Red Blood Count 2.81 x10^6/uL (3.50-5.40) Hemoglobin 9.1 g/dL (12.0-15.5) Hematocrit 27.5 % (36.0-47.0) Mean Corpuscular Volume 98 fL (79-100) Mean Corpuscular Hemoglobin 32 pg (25-35) Mean Corpuscular Hemoglobin Concent 33 g/dL (31-37) Red Cell Distribution Width 16.8 % (11.5-14.5) Platelet Count 281 x10^3/uL (140-400) Neutrophils (%) (Auto) 81 % (31-73) Lymphocytes (%) (Auto) 10 % (24-48) Monocytes (%) (Auto) 6 % (0-9) Eosinophils (%) (Auto) 2 % (0-3) Basophils (%) (Auto) 1 % (0-3) Neutrophils # (Auto) 24.4 x10^3/uL (1.8-7.7) Lymphocytes # (Auto) 3.0 x10^3/uL (1.0-4.8) Monocytes # (Auto) 1.7 x10^3/uL (0.0-1.1) Eosinophils # (Auto) 0.7 x10^3/uL (0.0-0.7) Basophils # (Auto) 0.2 x10^3/uL (0.0-0.2) BUN/Creatinine Ratio 28 (6-20) Total Bilirubin 1.0 mg/dL (0.2-1.0) Aspartate Amino Transf (AST/SGOT) 46 U/L (15-37) Alanine Aminotransferase (ALT/SGPT) 20 U/L (14-59) Alkaline Phosphatase 119 U/L (46-116) Total Protein 5.2 g/dL (6.4-8.2) Albumin 2.4 g/dL (3.4-5.0) Albumin/Globulin Ratio 0.9 (1.0-1.7) Glucose (Fingerstick) 182 mg/dL (70-99) O2 Saturation 95 % (92-99) Arterial Blood pH 7.34 (7.35-7.45) Arterial Blood pCO2 at Patient Temp 41 mmHg (35-46) Arterial Blood pO2 at Patient Temp 83 mmHg (75-108) Arterial Blood HCO3 22 mmol/L (21-28) Arterial Blood Base Excess -4 mmol/L (-3-3) FiO2 30% Test 07/20/19 11:29 Glucose (Fingerstick) 163 mg/dL (70-99) Micro Micro Microbiology 07/12/19 Blood Culture - Final, Complete NO GROWTH AFTER 5 DAYS Review of Systems Constitutional: yes: other (ON THE VENT) Physical Exam General Appearance: other (ON THE VENT) Skin: warm Respiratory: decreased breath sounds Heart: S1S2 Abdomen: soft, bowel sounds present Genitourinary: bladder flat Extremities: pulses present, edema Neurology: other (SEDATED) Assessment Assessment IMP [id number] OF 1.3 ON CRRT ANEMIA LEUCOCYTOSIS ANASARCA DUE TO 3RD SPACING HYPERKALEMIA-RESOLVED ACIDOSIS AND ACIDEMIA-CONTROLLED ACUTE REPS FAILURE ACUTE PANCREATITIS HYPOALBUMINEMIA HYPOCALCEMIA-BETTER PLAN TPN PRBC YESTERDAY CONT HIRAM CONT WITH CRRT-CHANGE PFR TO ZERO CONT SAME RF AND DIALYSATE VENT SUPPORT PRESSORS NEEDED ANTIBIOTICS WILL FOLLOW D/W DR KIRBY VERY POOR PROGNOSIS DONI GARCIA MD Jul 20, 2019 11:35
[2019-07-20 11:52] LABS: CALCIUM 7.2 mg/dL (8.5-10.1); CREATININE 1.1 mg/dL (0.6-1.0); GFR 52.8; PHOSPHORUS 2.9 mg/dL (2.6-4.7); POTASSIUM 3.7 mmol/L (3.5-5.1)
[2019-07-20] MEDS: TPN PER PHARMACY MC PRN ×2 (12:24→13:02)
--- NOTE | 2019-07-20 13:13 | NUR ---
Pharmacy TPN Dosing Note S: SCOTT AVILA is a 48 year old F Currently receiving Central Continuous TPN started 07/06/19 B:Pertinent PMH: Necrotizing pancreatitis Height: 5 feet, 8 inches Weight: 109.5 kg Current diet: NPO LABS: Sodium: 137 Potassium: 3.7 Chloride: 104 Calcium: 7.2 Corrected Calcium: 8.48 Magnesium: 2.0 CO2: 29 SCr: 1.1 Glucose: 165 Albumin: 2.4 AST: 46 ALT: 20 TPN FORMULA: TPN TYPE: Central Continuous AMINO ACIDS: 125 gm DEXTROSE: 195 gm LIPIDS: 40 gm SODIUM CHLORIDE: 90 mEq SODIUM ACETATE: -- mEq SODIUM PHOSPHATE: -- mmol POTASSIUM CHLORIDE: 15 mEq POTASSIUM ACETATE: -- mEq POTASSIUM PHOSPHATE: 18 mmol MAGNESIUM: 8 mEq CALCIUM: 15 mEq INSULIN: 20 units MULTIPLE VITAMIN: 10 ml TRACE ELEMENTS: 0.5 ml(s) TPN PLAN: continue same. R: Continue TPN ORDERED Will monitor electrolytes, glucose, and tolerance to TPN. HITESH GARZA [facility], 07/20/19 [id number]
[2019-07-20] MEDS: MIDAZOLAM HCL 100 MG in IV NORMAL SALINE 100ML 100 ML IV PRN (13:57)
[2019-07-20] MEDS: ALBUMIN HUMAN 5% 500 ML IV PRN (14:21)
--- NOTE | 2019-07-20 14:24 | PDOC ---
PROGRESS NOTES Assessment Assessment Respiratory failure. Seizure. Metabolic encephalopathy. Fever 102.7 degree. Metabolic acidosis. Diffuse pulmonary infiltrate. Pleural effusion. Pancreatitis Gallstone. Leukocytosis. Electrolytes imbalances. Hyperglycemia. DM. HTN. HLD. Anemia. Obesity. RECOMMENDATIONS/PLAN: Continue life support at the present time. Keppra if has further seizures. Treat medical diseases. EEG last week: No seizure activity. OBJECTIVE: 07/20/19: No seizures reported over night. Past Medical History Cardiovascular: HTN, Hyperlipidemia Endocrine: Diabetes Family History Unobtainable. Social HistoryU not obtainable Allergies Coded Allergies: Codeine (Verified Allergy, Intermediate, rash, 07/04/19) ROS Unobtainable in unresponsive state. PHYSICAL EXAMINATION: General appearance in sub acute distress. HEENT: Normocephalic and nontraumatic. Eyes, nose, ears, and throat are unremarkable. Neck is supple. No lymphadenopathy. Cardiovascular: S1, S2. Pulmonary: On vent.. Abdomen: Bowel sounds are weak. Extremities: No rash, lesions. Edema noted in hands. NEUROLOGICAL EXAMINATION: Minimal responsiveness. On vent. Not oriented to time, place and person. PERRL. EOMI not elicited, CN: no acute focal findings. Muscle tone: within normal. Muscle strength: No movements to stimuli. DTR: 1 Plantar reflex: No response bilaterally Gait: not able to walk. Sensory exam: no response to stimuli.. Not able to access cerebellar signs. F-T-N test not performed due to unresponsiveness Objective Objective Objective Vital Signs Date Time Temp Pulse Resp B/P (MAP) Pulse Ox O2 Delivery O2 Flow Rate FiO2 07/20/19 14:00 99 25 103/65 (78) 100 Ventilator 07/20/19 12:00 100.1 100.1 07/19/19 12:10 6.0 Intake and Output 07/20/19 07:00 Intake Total 3278 ml Output Total 555 ml Balance 2723 ml IV Total 2598 ml Blood Product 630 ml Blood Product IV Normal Saline Flush 50 ml Output Urine Total 430 ml Gastric Drainage Total 125 ml Vitals Signs Vitals VS - Last 72 Hours, by Label Date Time Temp Pulse Resp B/P (MAP) Pulse Ox O2 Delivery O2 Flow Rate FiO2 07/20/19 14:00 99 25 103/65 (78) 100 Ventilator 07/20/19 13:00 103 25 98/58 (71) 100 Ventilator 07/20/19 12:35 100 Ventilator 07/20/19 12:00 100.1 106 25 104/63 (77) 100 Ventilator 100.1 07/20/19 11:35 Mechanical Ventilator 07/20/19 11:00 109 25 124/57 (79) 100 Ventilator 07/20/19 10:00 107 25 122/69 (86) 100 Ventilator 07/20/19 09:00 106 25 93/67 (76) 100 Ventilator 07/20/19 08:50 100 Ventilator 07/20/19 08:17 100 Ventilator 07/20/19 08:00 98.4 108 25 118/57 (77) 100 Ventilator 98.4 07/20/19 07:51 100 Ventilator 07/20/19 07:38 Mechanical Ventilator 07/20/19 07:00 107 25 103/65 (78) 100 Ventilator 07/20/19 06:00 109 25 107/63 (78) 100 Ventilator 07/20/19 05:00 104 25 100/59 (73) 100 Ventilator 07/20/19 04:00 98.5 101 25 102/78 (86) 100 Ventilator 98.5 07/20/19 03:40 100 Ventilator 07/20/19 03:30 Mechanical Ventilator 07/20/19 03:00 100 25 105/76 (86) 100 Ventilator 07/20/19 02:00 102 25 97/65 (76) 100 Ventilator 07/20/19 01:00 102 25 121/63 (82) 100 Ventilator 07/20/19 00:00 Mechanical Ventilator 07/20/19 00:00 99.1 108 25 115/67 (83) 100 Ventilator 99.1 07/19/19 23:22 100 Ventilator 07/19/19 23:03 Ventilator 07/19/19 23:00 102 25 111/56 (74) 100 Ventilator 07/19/19 22:00 106 25 114/61 (78) 100 Ventilator 07/19/19 21:57 99 Ventilator 07/19/19 21:00 110 25 133/85 (101) 95 Ventilator 07/19/19 20:25 100 Ventilator 07/19/19 20:00 98.7 105 25 129/53 (78) 100 Ventilator 98.7 07/19/19 19:30 Mechanical Ventilator 07/19/19 19:00 105 25 129/53 (78) 100 Ventilator 07/19/19 18:00 111 25 121/79 (93) 99 Ventilator 07/19/19 17:00 104 25 106/71 (83) 100 Ventilator 07/19/19 16:00 Mechanical Ventilator 07/19/19 16:00 99.1 106 25 114/71 (85) 100 Ventilator 99.1 07/19/19 15:38 100 Ventilator 07/19/19 15:00 104 25 103/61 (75) 100 Ventilator 07/19/19 14:00 105 25 106/60 (75) 100 Ventilator 07/19/19 13:00 110 25 109/81 (90) 97 Ventilator 07/19/19 12:12 100 Ventilator 07/19/19 12:10 97 6.0 07/19/19 12:00 Mechanical Ventilator 07/19/19 12:00 99.8 108 25 112/61 (78) 100 Ventilator 99.8 07/19/19 11:40 100 6.0 07/19/19 11:00 113 28 114/66 (82) 100 Ventilator 07/19/19 10:00 114 26 107/78 (88) 98 Ventilator 07/19/19 09:55 99.0 112 26 122/75 99.0 07/19/19 09:18 99.3 113 25 127/65 99.3 07/19/19 09:00 116 25 97/56 (70) 99 Ventilator 07/19/19 08:58 99.9 115 26 110/60 99.9 07/19/19 08:27 98 Ventilator 07/19/19 08:02 99.5 118 25 92/55 99.5 07/19/19 08:00 Mechanical Ventilator 07/19/19 08:00 99.0 114 26 118/61 (80) 99 Ventilator 99.0 07/19/19 07:47 99.0 116 25 114/46 99.0 07/19/19 07:00 114 25 96/62 (73) 99 Ventilator Laboratory Laboratory Laboratory Tests Test 07/19/19 17:30 07/19/19 17:40 07/20/19 00:10 07/20/19 00:15 White Blood Count 37.4 x10^3/uL (4.0-11.0) Red Blood Count 2.89 x10^6/uL (3.50-5.40) Hemoglobin 9.3 g/dL (12.0-15.5) Hematocrit 28.0 % (36.0-47.0) Mean Corpuscular Volume 97 fL (79-100) Mean Corpuscular Hemoglobin 32 pg (25-35) Mean Corpuscular Hemoglobin Concent 33 g/dL (31-37) Red Cell Distribution Width 17.1 % (11.5-14.5) Platelet Count 307 x10^3/uL (140-400) Neutrophils (%) (Auto) 86 % (31-73) Lymphocytes (%) (Auto) 6 % (24-48) Monocytes (%) (Auto) 5 % (0-9) Eosinophils (%) (Auto) 2 % (0-3) Basophils (%) (Auto) 1 % (0-3) Neutrophils # (Auto) 32.1 x10^3/uL (1.8-7.7) Lymphocytes # (Auto) 2.4 x10^3/uL (1.0-4.8) Monocytes # (Auto) 1.9 x10^3/uL (0.0-1.1) Eosinophils # (Auto) 0.8 x10^3/uL (0.0-0.7) Basophils # (Auto) 0.2 x10^3/uL (0.0-0.2) Sodium Level 138 mmol/L (136-145) 137 mmol/L (136-145) Potassium Level 4.1 mmol/L (3.5-5.1) 4.1 mmol/L (3.5-5.1) Chloride Level 104 mmol/L (98-107) 103 mmol/L (98-107) Carbon Dioxide Level 28 mmol/L (21-32) 28 mmol/L (21-32) Anion Gap 6 (6-14) 6 (6-14) Blood Urea Nitrogen 33 mg/dL (7-20) 32 mg/dL (7-20) Creatinine 1.2 mg/dL (0.6-1.0) 1.1 mg/dL (0.6-1.0) Estimated GFR (Cockcroft-Gault) 47.7 52.8 BUN/Creatinine Ratio 28 (6-20) Glucose Level 185 mg/dL (70-99) 181 mg/dL (70-99) Calcium Level 8.1 mg/dL (8.5-10.1) 8.0 mg/dL (8.5-10.1) Phosphorus Level 3.1 mg/dL (2.6-4.7) 2.9 mg/dL (2.6-4.7) Magnesium Level 2.3 mg/dL (1.8-2.4) 2.1 mg/dL (1.8-2.4) Total Bilirubin 1.0 mg/dL (0.2-1.0) Aspartate Amino Transf (AST/SGOT) 50 U/L (15-37) Alanine Aminotransferase (ALT/SGPT) 21 U/L (14-59) Alkaline Phosphatase 128 U/L (46-116) Total Protein 5.3 g/dL (6.4-8.2) Albumin 2.5 g/dL (3.4-5.0) Albumin/Globulin Ratio 0.9 (1.0-1.7) Glucose (Fingerstick) 170 mg/dL (70-99) Test 07/20/19 05:30 07/20/19 05:37 07/20/19 08:00 07/20/19 11:29 White Blood Count 30.1 x10^3/uL (4.0-11.0) Red Blood Count 2.81 x10^6/uL (3.50-5.40) Hemoglobin 9.1 g/dL (12.0-15.5) Hematocrit 27.5 % (36.0-47.0) Mean Corpuscular Volume 98 fL (79-100) Mean Corpuscular Hemoglobin 32 pg (25-35) Mean Corpuscular Hemoglobin Concent 33 g/dL (31-37) Red Cell Distribution Width 16.8 % (11.5-14.5) Platelet Count 281 x10^3/uL (140-400) Neutrophils (%) (Auto) 81 % (31-73) Lymphocytes (%) (Auto) 10 % (24-48) Monocytes (%) (Auto) 6 % (0-9) Eosinophils (%) (Auto) 2 % (0-3) Basophils (%) (Auto) 1 % (0-3) Neutrophils # (Auto) 24.4 x10^3/uL (1.8-7.7) Lymphocytes # (Auto) 3.0 x10^3/uL (1.0-4.8) Monocytes # (Auto) 1.7 x10^3/uL (0.0-1.1) Eosinophils # (Auto) 0.7 x10^3/uL (0.0-0.7) Basophils # (Auto) 0.2 x10^3/uL (0.0-0.2) Sodium Level 138 mmol/L (136-145) Potassium Level 4.0 mmol/L (3.5-5.1) Chloride Level 104 mmol/L (98-107) Carbon Dioxide Level 28 mmol/L (21-32) Anion Gap 6 (6-14) Blood Urea Nitrogen 31 mg/dL (7-20) Creatinine 1.1 mg/dL (0.6-1.0) Estimated GFR (Cockcroft-Gault) 52.8 BUN/Creatinine Ratio 28 (6-20) Glucose Level 177 mg/dL (70-99) Calcium Level 8.2 mg/dL (8.5-10.1) Phosphorus Level 2.9 mg/dL (2.6-4.7) Magnesium Level 2.3 mg/dL (1.8-2.4) Total Bilirubin 1.0 mg/dL (0.2-1.0) Aspartate Amino Transf (AST/SGOT) 46 U/L (15-37) Alanine Aminotransferase (ALT/SGPT) 20 U/L (14-59) Alkaline Phosphatase 119 U/L (46-116) Total Protein 5.2 g/dL (6.4-8.2) Albumin 2.4 g/dL (3.4-5.0) Albumin/Globulin Ratio 0.9 (1.0-1.7) Glucose (Fingerstick) 182 mg/dL (70-99) 163 mg/dL (70-99) O2 Saturation 95 % (92-99) Arterial Blood pH 7.34 (7.35-7.45) Arterial Blood pCO2 at Patient Temp 41 mmHg (35-46) Arterial Blood pO2 at Patient Temp 83 mmHg (75-108) Arterial Blood HCO3 22 mmol/L (21-28) Arterial Blood Base Excess -4 mmol/L (-3-3) FiO2 30% Test 07/20/19 11:30 Sodium Level 137 mmol/L (136-145) Potassium Level 3.7 mmol/L (3.5-5.1) Chloride Level 104 mmol/L (98-107) Carbon Dioxide Level 29 mmol/L (21-32) Anion Gap 4 (6-14) Blood Urea Nitrogen 31 mg/dL (7-20) Creatinine 1.1 mg/dL (0.6-1.0) Estimated GFR (Cockcroft-Gault) 52.8 Glucose Level 165 mg/dL (70-99) Calcium Level 7.2 mg/dL (8.5-10.1) Phosphorus Level 2.9 mg/dL (2.6-4.7) Magnesium Level 2.0 mg/dL (1.8-2.4) Microbiology 07/12/19 Blood Culture - Final, Complete NO GROWTH AFTER 5 DAYS Medication Medications Current Medications Alteplase, Recombinant (Cathflo For Central Catheter Clearance) 1 mg 1X ONCE INT CAT Last administered on 07/19/19at 20:03; Start 07/19/19 at 19:30; Stop 07/19/19 at 19:46; Status DC Alteplase, Recombinant (Cathflo For Central Catheter Clearance) 1 mg 1X ONCE INT CAT Last administered on 07/19/19at 22:05; Start 07/19/19 at 22:00; Stop 07/19/19 at 22:01; Status DC Sodium Chloride 90 meq/Potassium Chloride 15 meq/ Potassium Phosphate 18 mmol/ Magnesium Sulfate 8 meq/Calcium Gluconate 15 meq/ Multivitamins 10 ml/Chromium/ Copper/Manganese/ Seleni/Zn 0.5 ml/ Insulin Human Regular 20 unit/ Total Parenteral Nutrition/Amino Acids/Dextrose/ Fat Emulsion Intravenous 1,400 ml @ 58.333 mls/ hr TPN CONT IV Last administered on 07/19/19at 21:36; Start 07/19/19 at 22:00; Stop 07/20/19 at 21:59 Sodium Chloride 90 meq/Potassium Chloride 15 meq/ Potassium Phosphate 18 mmol/ Magnesium Sulfate 8 meq/Calcium Gluconate 15 meq/ Multivitamins 10 ml/Chromium/ Copper/Manganese/ Seleni/Zn 0.5 ml/ Insulin Human Regular 20 unit/ Total Parenteral Nutrition/Amino Acids/Dextrose/ Fat Emulsion Intravenous 1,400 ml @ 58.333 mls/ hr TPN CONT IV ; Start 07/20/19 at 22:00; Stop 07/21/19 at 21:59 Comment Review of Relevant I have reviewed the following items kolby (where applicable) has been applied. ZANDER ZUÑIGA MD Jul 20, 2019 14:24
--- NOTE | 2019-07-20 14:28 | PDOC ---
PULMONARY PROGRESS NOTES Subjective Patient intubated on 07/10 , sedated Currently on assist control ventilation 450 tidal volume 8 of PEEP , 40%FIO2 ON CRRT Vitals Vital Signs Date Time Temp Pulse Resp B/P (MAP) Pulse Ox O2 Delivery O2 Flow Rate FiO2 07/20/19 14:00 99 25 103/65 (78) 100 Ventilator 07/20/19 12:00 100.1 100.1 07/19/19 12:10 6.0 Comments intubated , sedated Lungs: Other (decrease bs) Abdomen: Other (distended) Extremities: Other (trace edema) Labs Laboratory Tests Test 07/18/19 14:30 07/18/19 17:32 07/18/19 23:33 07/19/19 00:30 Sodium Level 137 mmol/L (136-145) 137 mmol/L (136-145) Potassium Level 4.4 mmol/L (3.5-5.1) 4.1 mmol/L (3.5-5.1) Chloride Level 103 mmol/L (98-107) 104 mmol/L (98-107) Carbon Dioxide Level 26 mmol/L (21-32) 28 mmol/L (21-32) Anion Gap 8 (6-14) 5 (6-14) Blood Urea Nitrogen 41 mg/dL (7-20) 35 mg/dL (7-20) Creatinine 1.6 mg/dL (0.6-1.0) 1.3 mg/dL (0.6-1.0) Estimated GFR (Cockcroft-Gault) 34.3 43.5 Glucose Level 244 mg/dL (70-99) 193 mg/dL (70-99) Calcium Level 8.1 mg/dL (8.5-10.1) 7.9 mg/dL (8.5-10.1) Phosphorus Level 3.0 mg/dL (2.6-4.7) 2.9 mg/dL (2.6-4.7) Magnesium Level 2.2 mg/dL (1.8-2.4) 2.1 mg/dL (1.8-2.4) Glucose (Fingerstick) 161 mg/dL (70-99) 180 mg/dL (70-99) Test 07/19/19 05:30 07/19/19 05:43 07/19/19 08:00 07/19/19 12:00 White Blood Count 35.5 x10^3/uL (4.0-11.0) Red Blood Count 1.92 x10^6/uL (3.50-5.40) Hemoglobin 6.5 g/dL (12.0-15.5) Hematocrit 19.4 % (36.0-47.0) Mean Corpuscular Volume 101 fL (79-100) Mean Corpuscular Hemoglobin 34 pg (25-35) Mean Corpuscular Hemoglobin Concent 33 g/dL (31-37) Red Cell Distribution Width 15.4 % (11.5-14.5) Platelet Count 354 x10^3/uL (140-400) Neutrophils (%) (Auto) 82 % (31-73) Lymphocytes (%) (Auto) 12 % (24-48) Monocytes (%) (Auto) 5 % (0-9) Eosinophils (%) (Auto) 1 % (0-3) Basophils (%) (Auto) 1 % (0-3) Neutrophils # (Auto) 29.1 x10^3/uL (1.8-7.7) Lymphocytes # (Auto) 4.1 x10^3/uL (1.0-4.8) Monocytes # (Auto) 1.7 x10^3/uL (0.0-1.1) Eosinophils # (Auto) 0.4 x10^3/uL (0.0-0.7) Basophils # (Auto) 0.2 x10^3/uL (0.0-0.2) Sodium Level 138 mmol/L (136-145) 138 mmol/L (136-145) Potassium Level 4.1 mmol/L (3.5-5.1) 3.9 mmol/L (3.5-5.1) Chloride Level 105 mmol/L (98-107) 103 mmol/L (98-107) Carbon Dioxide Level 27 mmol/L (21-32) 27 mmol/L (21-32) Anion Gap 6 (6-14) 8 (6-14) Blood Urea Nitrogen 34 mg/dL (7-20) 33 mg/dL (7-20) Creatinine 1.3 mg/dL (0.6-1.0) 1.2 mg/dL (0.6-1.0) Estimated GFR (Cockcroft-Gault) 43.5 47.7 Glucose Level 185 mg/dL (70-99) 192 mg/dL (70-99) Calcium Level 8.1 mg/dL (8.5-10.1) 8.0 mg/dL (8.5-10.1) Phosphorus Level 2.9 mg/dL (2.6-4.7) 2.7 mg/dL (2.6-4.7) Magnesium Level 2.4 mg/dL (1.8-2.4) 2.2 mg/dL (1.8-2.4) Glucose (Fingerstick) 194 mg/dL (70-99) O2 Saturation 93 % (92-99) Arterial Blood pH 7.34 (7.35-7.45) Arterial Blood pCO2 at Patient Temp 47 mmHg (35-46) Arterial Blood pO2 at Patient Temp 73 mmHg (75-108) Arterial Blood HCO3 25 mmol/L (21-28) Arterial Blood Base Excess -1 mmol/L (-3-3) FiO2 40 Prothrombin Time 21.3 SEC (11.7-14.0) Prothromb Time International Ratio 1.9 (0.8-1.1) Test 07/19/19 17:30 07/19/19 17:40 07/20/19 00:10 07/20/19 00:15 White Blood Count 37.4 x10^3/uL (4.0-11.0) Red Blood Count 2.89 x10^6/uL (3.50-5.40) Hemoglobin 9.3 g/dL (12.0-15.5) Hematocrit 28.0 % (36.0-47.0) Mean Corpuscular Volume 97 fL (79-100) Mean Corpuscular Hemoglobin 32 pg (25-35) Mean Corpuscular Hemoglobin Concent 33 g/dL (31-37) Red Cell Distribution Width 17.1 % (11.5-14.5) Platelet Count 307 x10^3/uL (140-400) Neutrophils (%) (Auto) 86 % (31-73) Lymphocytes (%) (Auto) 6 % (24-48) Monocytes (%) (Auto) 5 % (0-9) Eosinophils (%) (Auto) 2 % (0-3) Basophils (%) (Auto) 1 % (0-3) Neutrophils # (Auto) 32.1 x10^3/uL (1.8-7.7) Lymphocytes # (Auto) 2.4 x10^3/uL (1.0-4.8) Monocytes # (Auto) 1.9 x10^3/uL (0.0-1.1) Eosinophils # (Auto) 0.8 x10^3/uL (0.0-0.7) Basophils # (Auto) 0.2 x10^3/uL (0.0-0.2) Sodium Level 138 mmol/L (136-145) 137 mmol/L (136-145) Potassium Level 4.1 mmol/L (3.5-5.1) 4.1 mmol/L (3.5-5.1) Chloride Level 104 mmol/L (98-107) 103 mmol/L (98-107) Carbon Dioxide Level 28 mmol/L (21-32) 28 mmol/L (21-32) Anion Gap 6 (6-14) 6 (6-14) Blood Urea Nitrogen 33 mg/dL (7-20) 32 mg/dL (7-20) Creatinine 1.2 mg/dL (0.6-1.0) 1.1 mg/dL (0.6-1.0) Estimated GFR (Cockcroft-Gault) 47.7 52.8 BUN/Creatinine Ratio 28 (6-20) Glucose Level 185 mg/dL (70-99) 181 mg/dL (70-99) Calcium Level 8.1 mg/dL (8.5-10.1) 8.0 mg/dL (8.5-10.1) Phosphorus Level 3.1 mg/dL (2.6-4.7) 2.9 mg/dL (2.6-4.7) Magnesium Level 2.3 mg/dL (1.8-2.4) 2.1 mg/dL (1.8-2.4) Total Bilirubin 1.0 mg/dL (0.2-1.0) Aspartate Amino Transf (AST/SGOT) 50 U/L (15-37) Alanine Aminotransferase (ALT/SGPT) 21 U/L (14-59) Alkaline Phosphatase 128 U/L (46-116) Total Protein 5.3 g/dL (6.4-8.2) Albumin 2.5 g/dL (3.4-5.0) Albumin/Globulin Ratio 0.9 (1.0-1.7) Glucose (Fingerstick) 170 mg/dL (70-99) Test 07/20/19 05:30 07/20/19 05:37 07/20/19 08:00 07/20/19 11:29 White Blood Count 30.1 x10^3/uL (4.0-11.0) Red Blood Count 2.81 x10^6/uL (3.50-5.40) Hemoglobin 9.1 g/dL (12.0-15.5) Hematocrit 27.5 % (36.0-47.0) Mean Corpuscular Volume 98 fL (79-100) Mean Corpuscular Hemoglobin 32 pg (25-35) Mean Corpuscular Hemoglobin Concent 33 g/dL (31-37) Red Cell Distribution Width 16.8 % (11.5-14.5) Platelet Count 281 x10^3/uL (140-400) Neutrophils (%) (Auto) 81 % (31-73) Lymphocytes (%) (Auto) 10 % (24-48) Monocytes (%) (Auto) 6 % (0-9) Eosinophils (%) (Auto) 2 % (0-3) Basophils (%) (Auto) 1 % (0-3) Neutrophils # (Auto) 24.4 x10^3/uL (1.8-7.7) Lymphocytes # (Auto) 3.0 x10^3/uL (1.0-4.8) Monocytes # (Auto) 1.7 x10^3/uL (0.0-1.1) Eosinophils # (Auto) 0.7 x10^3/uL (0.0-0.7) Basophils # (Auto) 0.2 x10^3/uL (0.0-0.2) Sodium Level 138 mmol/L (136-145) Potassium Level 4.0 mmol/L (3.5-5.1) Chloride Level 104 mmol/L (98-107) Carbon Dioxide Level 28 mmol/L (21-32) Anion Gap 6 (6-14) Blood Urea Nitrogen 31 mg/dL (7-20) Creatinine 1.1 mg/dL (0.6-1.0) Estimated GFR (Cockcroft-Gault) 52.8 BUN/Creatinine Ratio 28 (6-20) Glucose Level 177 mg/dL (70-99) Calcium Level 8.2 mg/dL (8.5-10.1) Phosphorus Level 2.9 mg/dL (2.6-4.7) Magnesium Level 2.3 mg/dL (1.8-2.4) Total Bilirubin 1.0 mg/dL (0.2-1.0) Aspartate Amino Transf (AST/SGOT) 46 U/L (15-37) Alanine Aminotransferase (ALT/SGPT) 20 U/L (14-59) Alkaline Phosphatase 119 U/L (46-116) Total Protein 5.2 g/dL (6.4-8.2) Albumin 2.4 g/dL (3.4-5.0) Albumin/Globulin Ratio 0.9 (1.0-1.7) Glucose (Fingerstick) 182 mg/dL (70-99) 163 mg/dL (70-99) O2 Saturation 95 % (92-99) Arterial Blood pH 7.34 (7.35-7.45) Arterial Blood pCO2 at Patient Temp 41 mmHg (35-46) Arterial Blood pO2 at Patient Temp 83 mmHg (75-108) Arterial Blood HCO3 22 mmol/L (21-28) Arterial Blood Base Excess -4 mmol/L (-3-3) FiO2 30% Test 07/20/19 11:30 Sodium Level 137 mmol/L (136-145) Potassium Level 3.7 mmol/L (3.5-5.1) Chloride Level 104 mmol/L (98-107) Carbon Dioxide Level 29 mmol/L (21-32) Anion Gap 4 (6-14) Blood Urea Nitrogen 31 mg/dL (7-20) Creatinine 1.1 mg/dL (0.6-1.0) Estimated GFR (Cockcroft-Gault) 52.8 Glucose Level 165 mg/dL (70-99) Calcium Level 7.2 mg/dL (8.5-10.1) Phosphorus Level 2.9 mg/dL (2.6-4.7) Magnesium Level 2.0 mg/dL (1.8-2.4) Laboratory Tests Test 07/19/19 17:30 3/31/20 17:40 07/20/19 00:10 07/20/19 00:15 White Blood Count 37.4 x10^3/uL (4.0-11.0) Red Blood Count 2.89 x10^6/uL (3.50-5.40) Hemoglobin 9.3 g/dL (12.0-15.5) Hematocrit 28.0 % (36.0-47.0) Mean Corpuscular Volume 97 fL (79-100) Mean Corpuscular Hemoglobin 32 pg (25-35) Mean Corpuscular Hemoglobin Concent 33 g/dL (31-37) Red Cell Distribution Width 17.1 % (11.5-14.5) Platelet Count 307 x10^3/uL (140-400) Neutrophils (%) (Auto) 86 % (31-73) Lymphocytes (%) (Auto) 6 % (24-48) Monocytes (%) (Auto) 5 % (0-9) Eosinophils (%) (Auto) 2 % (0-3) Basophils (%) (Auto) 1 % (0-3) Neutrophils # (Auto) 32.1 x10^3/uL (1.8-7.7) Lymphocytes # (Auto) 2.4 x10^3/uL (1.0-4.8) Monocytes # (Auto) 1.9 x10^3/uL (0.0-1.1) Eosinophils # (Auto) 0.8 x10^3/uL (0.0-0.7) Basophils # (Auto) 0.2 x10^3/uL (0.0-0.2) Sodium Level 138 mmol/L (136-145) 137 mmol/L (136-145) Potassium Level 4.1 mmol/L (3.5-5.1) 4.1 mmol/L (3.5-5.1) Chloride Level 104 mmol/L (98-107) 103 mmol/L (98-107) Carbon Dioxide Level 28 mmol/L (21-32) 28 mmol/L (21-32) Anion Gap 6 (6-14) 6 (6-14) Blood Urea Nitrogen 33 mg/dL (7-20) 32 mg/dL (7-20) Creatinine 1.2 mg/dL (0.6-1.0) 1.1 mg/dL (0.6-1.0) Estimated GFR (Cockcroft-Gault) 47.7 52.8 BUN/Creatinine Ratio 28 (6-20) Glucose Level 185 mg/dL (70-99) 181 mg/dL (70-99) Calcium Level 8.1 mg/dL (8.5-10.1) 8.0 mg/dL (8.5-10.1) Phosphorus Level 3.1 mg/dL (2.6-4.7) 2.9 mg/dL (2.6-4.7) Magnesium Level 2.3 mg/dL (1.8-2.4) 2.1 mg/dL (1.8-2.4) Total Bilirubin 1.0 mg/dL (0.2-1.0) Aspartate Amino Transf (AST/SGOT) 50 U/L (15-37) Alanine Aminotransferase (ALT/SGPT) 21 U/L (14-59) Alkaline Phosphatase 128 U/L (46-116) Total Protein 5.3 g/dL (6.4-8.2) Albumin 2.5 g/dL (3.4-5.0) Albumin/Globulin Ratio 0.9 (1.0-1.7) Glucose (Fingerstick) 170 mg/dL (70-99) Test 07/20/19 05:30 07/20/19 05:37 07/20/19 08:00 07/20/19 11:29 White Blood Count 30.1 x10^3/uL (4.0-11.0) Red Blood Count 2.81 x10^6/uL (3.50-5.40) Hemoglobin 9.1 g/dL (12.0-15.5) Hematocrit 27.5 % (36.0-47.0) Mean Corpuscular Volume 98 fL (79-100) Mean Corpuscular Hemoglobin 32 pg (25-35) Mean Corpuscular Hemoglobin Concent 33 g/dL (31-37) Red Cell Distribution Width 16.8 % (11.5-14.5) Platelet Count 281 x10^3/uL (140-400) Neutrophils (%) (Auto) 81 % (31-73) Lymphocytes (%) (Auto) 10 % (24-48) Monocytes (%) (Auto) 6 % (0-9) Eosinophils (%) (Auto) 2 % (0-3) Basophils (%) (Auto) 1 % (0-3) Neutrophils # (Auto) 24.4 x10^3/uL (1.8-7.7) Lymphocytes # (Auto) 3.0 x10^3/uL (1.0-4.8) Monocytes # (Auto) 1.7 x10^3/uL (0.0-1.1) Eosinophils # (Auto) 0.7 x10^3/uL (0.0-0.7) Basophils # (Auto) 0.2 x10^3/uL (0.0-0.2) Sodium Level 138 mmol/L (136-145) Potassium Level 4.0 mmol/L (3.5-5.1) Chloride Level 104 mmol/L (98-107) Carbon Dioxide Level 28 mmol/L (21-32) Anion Gap 6 (6-14) Blood Urea Nitrogen 31 mg/dL (7-20) Creatinine 1.1 mg/dL (0.6-1.0) Estimated GFR (Cockcroft-Gault) 52.8 BUN/Creatinine Ratio 28 (6-20) Glucose Level 177 mg/dL (70-99) Calcium Level 8.2 mg/dL (8.5-10.1) Phosphorus Level 2.9 mg/dL (2.6-4.7) Magnesium Level 2.3 mg/dL (1.8-2.4) Total Bilirubin 1.0 mg/dL (0.2-1.0) Aspartate Amino Transf (AST/SGOT) 46 U/L (15-37) Alanine Aminotransferase (ALT/SGPT) 20 U/L (14-59) Alkaline Phosphatase 119 U/L (46-116) Total Protein 5.2 g/dL (6.4-8.2) Albumin 2.4 g/dL (3.4-5.0) Albumin/Globulin Ratio 0.9 (1.0-1.7) Glucose (Fingerstick) 182 mg/dL (70-99) 163 mg/dL (70-99) O2 Saturation 95 % (92-99) Arterial Blood pH 7.34 (7.35-7.45) Arterial Blood pCO2 at Patient Temp 41 mmHg (35-46) Arterial Blood pO2 at Patient Temp 83 mmHg (75-108) Arterial Blood HCO3 22 mmol/L (21-28) Arterial Blood Base Excess -4 mmol/L (-3-3) FiO2 30% Test 07/20/19 11:30 Sodium Level 137 mmol/L (136-145) Potassium Level 3.7 mmol/L (3.5-5.1) Chloride Level 104 mmol/L (98-107) Carbon Dioxide Level 29 mmol/L (21-32) Anion Gap 4 (6-14) Blood Urea Nitrogen 31 mg/dL (7-20) Creatinine 1.1 mg/dL (0.6-1.0) Estimated GFR (Cockcroft-Gault) 52.8 Glucose Level 165 mg/dL (70-99) Calcium Level 7.2 mg/dL (8.5-10.1) Phosphorus Level 2.9 mg/dL (2.6-4.7) Magnesium Level 2.0 mg/dL (1.8-2.4) Medications Active Scripts Medications Dose Route/Sig Max Daily Dose Days Date Category Bisoprolol Fumarate 5 Mg Tablet 10 Mg PO DAILY 07/04/19 Reported Comments Chest x-ray reviewed 07/19 CT chest 07/17 reviewed Impression . IMPRESSION: 1. Acute hypoxemic respiratory failure secondary to ARDS due to acute pancreatitis, septic shock, abdominal distention, and pneumonia.and pleural effusions. Pleural effusions secondary to abdominal process and/or general volume overload from renal failure. 2. Gallstone pancreatitis. WITH NECROSIS 3. Severe metabolic acidosis. 4. Acute kidney injury. ON CRRT 5. Acute gallstone pancreatitis. 6. Hypoalbuminemia. 7. Hypocalcemia. 8. Leukocytosis 9. Chronic anemia 10. Covid 19 testing negative 11. Acute /chronic anemia suspected hemorrhagic fluid in pelvis Plan . AC mode, no change in current FIO2/ PEEP Not ready for trial, still fevers Cont AC mode , 40 FIO2/ PEEP. Transfuse prn Not a surgical candidate per surgery supportive care CRRT Antibiotics per ID Follow nephrology input Nutritional support with TPN Prognosis is extremely poor d/w RN/ no intervention for effusions, increase UF with CRRT cct 30 min VINAYAK LANDRUM MD Jul 20, 2019 14:28
[2019-07-20 16:07] LABS: BASO # 0.1 x10^3/uL (0.0-0.2); BASO % 1 % (0-3); EOS # 0.5 x10^3/uL (0.0-0.7); EOS % 2 % (0-3); HEMATOCRIT 26.9 % (36.0-47.0); HEMOGLOBIN 8.9 g/dL (12.0-15.5); LYMPH # 2.2 x10^3/uL (1.0-4.8); LYMPH % 10 % (24-48); MEAN CORPUSCULAR HEMOGLOBIN 32 pg (25-35); MEAN CORPUSCULAR HGB CONC 33 g/dL (31-37); MEAN CORPUSCULAR VOLUME 98 fL (79-100); MONO # 1.3 x10^3/uL (0.0-1.1); MONO % 6 % (0-9); NEUT # 18.5 x10^3/uL (1.8-7.7); NEUT % 82 % (31-73); PLATELET COUNT 257 x10^3/uL (140-400); RED BLOOD COUNT 2.75 x10^6/uL (3.50-5.40); RED CELL DISTRIBUTION WIDTH 17.1 % (11.5-14.5); WHITE BLOOD COUNT 22.6 x10^3/uL (4.0-11.0)
[2019-07-20 16:18] LABS: CALCIUM 8.2 mg/dL (8.5-10.1); CREATININE 1.1 mg/dL (0.6-1.0); GFR 52.8; MAGNESIUM 2.3 mg/dL (1.8-2.4); PHOSPHORUS 2.9 mg/dL (2.6-4.7); POTASSIUM 3.9 mmol/L (3.5-5.1)
--- NOTE | 2019-07-20 16:36 | PDOC ---
PROGRESS NOTES Chief Complaint Chief Complaint Respiratory failure requiring mechanical ventilation Severe Acute gallstone pancreatitis (not a surgical candidate at this time) with necrosis Acute kidney failure now requiring dialysis Salpingitis Gallstones (Calculus of gallbladder with acute cholecystitis without obstruction) HTN Leukocytosis Hypoxia Uterine fibroid Hypoxia with respiratory failure Intractable pain Intractable nausea Covid 19 negative. Acute on chronic anemia will have to follow up since there is suspicion for hemorrhagic fluid in pelvis Plan: discussed with mother at bedside continue supportive measures grim prognosis discussed with surgical resident planning of trach for thursday if unable to extubate History of Present Illness History of Present Illness 07/20/2019 No acute events reported overnight, no fever or chills, remains critically stable, discussed with mother at bedside. [id number] Patient seen and examined in the ICU She is critically ill Mechanically ventilated Assist-control/25/450/30 with 8 of PEEP She is on cefepime daptomycin Flagyl and micafungin GEN for antibiotic coverage Also getting TPN and CRRT Sedated with Versed Getting IV albumin also She is tachycardic at 112 bpm Temp max 100.0 White blood count is down from 45,000 35,000 today Chart reviewed Discussed with RN [id number] Patient seen and examined in the ICU She remains very critically ill Going for a CT of the abdomen chest and pelvis Ventilated : On assist control 40% FiO2 Discussed with RN Chart reviewed [id number] Patient seen and examined in the ICU She is still on CRRT although we plan to change to hemodialysis soon Chart reviewed Discussed with RN Hemoglobin down to 6.9 (suspect CRRT related , Will let nephrology consider transfusion while on dialysis) [id number] Patient seen and examined in the ICU She is mechanically ventilated Before meals/25/450/30% Also on CRRT Very critically ill Chart reviewed Discussed with RN [id number] Patient seen and examined in the ICU She is now been transferred to the Covid 19 unit so we can rule out Covid and keep her in isolation Very critically ill Intubated and ventilated Assist control 40% Chart reviewed Discussed with RN Still on CRRT Getting a chest x-ray now Very concerned about her prognosis [id number] Patient seen and examined in the ICU She is extremely critically ill Remains mechanically ventilated with assist control/25/450/40% Also on continuous renal replacement therapy Chart reviewed Discussed with RN She has TPN hanging Also on pressors [id number] Patient seen and examined in the ICU She is still requiring CRRT On the vent with assist control but her FiO2 is down to 40% from yesterday Slightly better but still very critically ill Discussed with RN Chart reviewed [id number] Patient seen and examined in the ICU She remains extremely critically ill On IV fentanyl IV Versed IV Doxy On the vent Assist-control/25/450/70% She is critically ill Discussed with RN Chart reviewed Patient is currently on CRRT as well [id number] Patient seen and examined in the ICU She had to be intubated this morning On assist-control 25/450/100% with 10 of PEEP and only satting 87% She is extremely critically ill I'm not sure if she will survive Chart reviewed Discussed with RN Ms Diaz is a 48yo F w/ PMHx HTN, prediabetes who presents the emergency room complaints of abdominal pain. Patient described off and on 3 days. She states is constant, described as a squeezing sensation in a band-like distribution. + nausea, vomiting. She denies any fever or diarrhea. Patient denies any abdominal surgical procedures. She states is worse with movements, car ride. Pain initially was upper abdomen however now pretty much generalized. Last bowel movement was 07/03/2019. Nothing makes her pain better. Patient denies any shortness of breath. She does state the pain moves into her chest. Denies any headache or visual changes. Lipase 61790, AST 401, ALT 249, Bilirubin 1.4. CT abdomen confirms pancreatic inflammation, peripancreatic fluid and inflammatory changes around the pancreas consistent with pancreatitis. Cholelithiasis and 1.4cm uterine fibroid as well as possible left salpingitis. Admitted for further care GI, General surgery, ID, Pulm consulted. 07/04: Overnight per report no urine output. Added dilaudid for pain, PICC placed per IR. Renal US negative.Seen bedside in ICU, given 2L additional NSS and albumin infusion. Still hypotensive, started on levophed. Repeat CT abdomen with necrosis. Updated her fiancee 07/05: Sats are only 87% on nasal cannula oxygen. Dialysis catheter per nephrology 07/06: She is now on BiPAP appears more ill, now on dialysis 07/07: Seen on BiPAP. Her mother and another family member are present and seemed to be good support for her. Currently on dialysis. Appears critically ill 07/08: Overnight Tmax 101.7 , still on BiPAP FiO2 40%, still on low dose Levophed gtt, TPN initiated. On dialysis Overnight still febrile. Dialysis today. She wakes up and responds to pain. No CP. Vitals Vitals Vital Signs Date Time Temp Pulse Resp B/P (MAP) Pulse Ox O2 Delivery O2 Flow Rate FiO2 07/20/19 16:00 99.0 110 25 106/64 (78) 100 Ventilator 99.0 07/19/19 12:10 6.0 Physical Exam Physical Exam GENERAL: Orally intubated/sedated - generalizd anasarca HEENT: Mild icterus, pupils equal, ETT, NGT NECK: Supple. LUNGS: Decreased breath sounds at the bases. HEART: S1, S2, regular ABDOMEN: Distended, hypoactive BS, Rectal tube in place : Lind EXTREMITIES: Generalized edema, no cyanosis - some mottling, Rooke boots bilaterally DERMATOLOGIC: Warm and dry. No generalized rash. CENTRAL NERVOUS SYSTEM: Sedated RIJ Temp HDC, RUE-PICC & LIJ - clean General: No acute distress Heart: Other (increased rate) Lungs: Other (decrease bs) Abdomen: Soft, Other (distended, NTTP) Extremities: No edema, Other (SOME CLUBBING ) Skin: Other (mottling noted to extremities ) Labs LABS Laboratory Tests Test 07/19/19 17:30 07/19/19 17:40 07/20/19 00:10 07/20/19 00:15 White Blood Count 37.4 x10^3/uL (4.0-11.0) Red Blood Count 2.89 x10^6/uL (3.50-5.40) Hemoglobin 9.3 g/dL (12.0-15.5) Hematocrit 28.0 % (36.0-47.0) Mean Corpuscular Volume 97 fL (79-100) Mean Corpuscular Hemoglobin 32 pg (25-35) Mean Corpuscular Hemoglobin Concent 33 g/dL (31-37) Red Cell Distribution Width 17.1 % (11.5-14.5) Platelet Count 307 x10^3/uL (140-400) Neutrophils (%) (Auto) 86 % (31-73) Lymphocytes (%) (Auto) 6 % (24-48) Monocytes (%) (Auto) 5 % (0-9) Eosinophils (%) (Auto) 2 % (0-3) Basophils (%) (Auto) 1 % (0-3) Neutrophils # (Auto) 32.1 x10^3/uL (1.8-7.7) Lymphocytes # (Auto) 2.4 x10^3/uL (1.0-4.8) Monocytes # (Auto) 1.9 x10^3/uL (0.0-1.1) Eosinophils # (Auto) 0.8 x10^3/uL (0.0-0.7) Basophils # (Auto) 0.2 x10^3/uL (0.0-0.2) Sodium Level 138 mmol/L (136-145) 137 mmol/L (136-145) Potassium Level 4.1 mmol/L (3.5-5.1) 4.1 mmol/L (3.5-5.1) Chloride Level 104 mmol/L (98-107) 103 mmol/L (98-107) Carbon Dioxide Level 28 mmol/L (21-32) 28 mmol/L (21-32) Anion Gap 6 (6-14) 6 (6-14) Blood Urea Nitrogen 33 mg/dL (7-20) 32 mg/dL (7-20) Creatinine 1.2 mg/dL (0.6-1.0) 1.1 mg/dL (0.6-1.0) Estimated GFR (Cockcroft-Gault) 47.7 52.8 BUN/Creatinine Ratio 28 (6-20) Glucose Level 185 mg/dL (70-99) 181 mg/dL (70-99) Calcium Level 8.1 mg/dL (8.5-10.1) 8.0 mg/dL (8.5-10.1) Phosphorus Level 3.1 mg/dL (2.6-4.7) 2.9 mg/dL (2.6-4.7) Magnesium Level 2.3 mg/dL (1.8-2.4) 2.1 mg/dL (1.8-2.4) Total Bilirubin 1.0 mg/dL (0.2-1.0) Aspartate Amino Transf (AST/SGOT) 50 U/L (15-37) Alanine Aminotransferase (ALT/SGPT) 21 U/L (14-59) Alkaline Phosphatase 128 U/L (46-116) Total Protein 5.3 g/dL (6.4-8.2) Albumin 2.5 g/dL (3.4-5.0) Albumin/Globulin Ratio 0.9 (1.0-1.7) Glucose (Fingerstick) 170 mg/dL (70-99) Test 07/20/19 05:30 07/20/19 05:37 07/20/19 08:00 07/20/19 11:29 White Blood Count 30.1 x10^3/uL (4.0-11.0) Red Blood Count 2.81 x10^6/uL (3.50-5.40) Hemoglobin 9.1 g/dL (12.0-15.5) Hematocrit 27.5 % (36.0-47.0) Mean Corpuscular Volume 98 fL (79-100) Mean Corpuscular Hemoglobin 32 pg (25-35) Mean Corpuscular Hemoglobin Concent 33 g/dL (31-37) Red Cell Distribution Width 16.8 % (11.5-14.5) Platelet Count 281 x10^3/uL (140-400) Neutrophils (%) (Auto) 81 % (31-73) Lymphocytes (%) (Auto) 10 % (24-48) Monocytes (%) (Auto) 6 % (0-9) Eosinophils (%) (Auto) 2 % (0-3) Basophils (%) (Auto) 1 % (0-3) Neutrophils # (Auto) 24.4 x10^3/uL (1.8-7.7) Lymphocytes # (Auto) 3.0 x10^3/uL (1.0-4.8) Monocytes # (Auto) 1.7 x10^3/uL (0.0-1.1) Eosinophils # (Auto) 0.7 x10^3/uL (0.0-0.7) Basophils # (Auto) 0.2 x10^3/uL (0.0-0.2) Sodium Level 138 mmol/L (136-145) Potassium Level 4.0 mmol/L (3.5-5.1) Chloride Level 104 mmol/L (98-107) Carbon Dioxide Level 28 mmol/L (21-32) Anion Gap 6 (6-14) Blood Urea Nitrogen 31 mg/dL (7-20) Creatinine 1.1 mg/dL (0.6-1.0) Estimated GFR (Cockcroft-Gault) 52.8 BUN/Creatinine Ratio 28 (6-20) Glucose Level 177 mg/dL (70-99) Calcium Level 8.2 mg/dL (8.5-10.1) Phosphorus Level 2.9 mg/dL (2.6-4.7) Magnesium Level 2.3 mg/dL (1.8-2.4) Total Bilirubin 1.0 mg/dL (0.2-1.0) Aspartate Amino Transf (AST/SGOT) 46 U/L (15-37) Alanine Aminotransferase (ALT/SGPT) 20 U/L (14-59) Alkaline Phosphatase 119 U/L (46-116) Total Protein 5.2 g/dL (6.4-8.2) Albumin 2.4 g/dL (3.4-5.0) Albumin/Globulin Ratio 0.9 (1.0-1.7) Glucose (Fingerstick) 182 mg/dL (70-99) 163 mg/dL (70-99) O2 Saturation 95 % (92-99) Arterial Blood pH 7.34 (7.35-7.45) Arterial Blood pCO2 at Patient Temp 41 mmHg (35-46) Arterial Blood pO2 at Patient Temp 83 mmHg (75-108) Arterial Blood HCO3 22 mmol/L (21-28) Arterial Blood Base Excess -4 mmol/L (-3-3) FiO2 30% Test 07/20/19 11:30 07/20/19 16:00 Sodium Level 137 mmol/L (136-145) 137 mmol/L (136-145) Potassium Level 3.7 mmol/L (3.5-5.1) 3.9 mmol/L (3.5-5.1) Chloride Level 104 mmol/L (98-107) 104 mmol/L (98-107) Carbon Dioxide Level 29 mmol/L (21-32) 28 mmol/L (21-32) Anion Gap 4 (6-14) 5 (6-14) Blood Urea Nitrogen 31 mg/dL (7-20) 30 mg/dL (7-20) Creatinine 1.1 mg/dL (0.6-1.0) 1.1 mg/dL (0.6-1.0) Estimated GFR (Cockcroft-Gault) 52.8 52.8 Glucose Level 165 mg/dL (70-99) 170 mg/dL (70-99) Calcium Level 7.2 mg/dL (8.5-10.1) 8.2 mg/dL (8.5-10.1) Phosphorus Level 2.9 mg/dL (2.6-4.7) 2.9 mg/dL (2.6-4.7) Magnesium Level 2.0 mg/dL (1.8-2.4) 2.3 mg/dL (1.8-2.4) White Blood Count 22.6 x10^3/uL (4.0-11.0) Red Blood Count 2.75 x10^6/uL (3.50-5.40) Hemoglobin 8.9 g/dL (12.0-15.5) Hematocrit 26.9 % (36.0-47.0) Mean Corpuscular Volume 98 fL (79-100) Mean Corpuscular Hemoglobin 32 pg (25-35) Mean Corpuscular Hemoglobin Concent 33 g/dL (31-37) Red Cell Distribution Width 17.1 % (11.5-14.5) Platelet Count 257 x10^3/uL (140-400) Neutrophils (%) (Auto) 82 % (31-73) Lymphocytes (%) (Auto) 10 % (24-48) Monocytes (%) (Auto) 6 % (0-9) Eosinophils (%) (Auto) 2 % (0-3) Basophils (%) (Auto) 1 % (0-3) Neutrophils # (Auto) 18.5 x10^3/uL (1.8-7.7) Lymphocytes # (Auto) 2.2 x10^3/uL (1.0-4.8) Monocytes # (Auto) 1.3 x10^3/uL (0.0-1.1) Eosinophils # (Auto) 0.5 x10^3/uL (0.0-0.7) Basophils # (Auto) 0.1 x10^3/uL (0.0-0.2) Assessment and Plan Assessmemt and Plan Problems Medical Problems: (1) Acute pancreatitis Status: Acute (2) Cholelithiasis Status: Acute Comment Review of Relevant I have reviewed the following items kolby (where applicable) has been applied. Labs Laboratory Tests Test 07/18/19 17:32 07/18/19 23:33 07/19/19 00:30 07/19/19 05:30 Glucose (Fingerstick) 161 mg/dL (70-99) 180 mg/dL (70-99) Sodium Level 137 mmol/L (136-145) 138 mmol/L (136-145) Potassium Level 4.1 mmol/L (3.5-5.1) 4.1 mmol/L (3.5-5.1) Chloride Level 104 mmol/L (98-107) 105 mmol/L (98-107) Carbon Dioxide Level 28 mmol/L (21-32) 27 mmol/L (21-32) Anion Gap 5 (6-14) 6 (6-14) Blood Urea Nitrogen 35 mg/dL (7-20) 34 mg/dL (7-20) Creatinine 1.3 mg/dL (0.6-1.0) 1.3 mg/dL (0.6-1.0) Estimated GFR (Cockcroft-Gault) 43.5 43.5 Glucose Level 193 mg/dL (70-99) 185 mg/dL (70-99) Calcium Level 7.9 mg/dL (8.5-10.1) 8.1 mg/dL (8.5-10.1) Phosphorus Level 2.9 mg/dL (2.6-4.7) 2.9 mg/dL (2.6-4.7) Magnesium Level 2.1 mg/dL (1.8-2.4) 2.4 mg/dL (1.8-2.4) White Blood Count 35.5 x10^3/uL (4.0-11.0) Red Blood Count 1.92 x10^6/uL (3.50-5.40) Hemoglobin 6.5 g/dL (12.0-15.5) Hematocrit 19.4 % (36.0-47.0) Mean Corpuscular Volume 101 fL (79-100) Mean Corpuscular Hemoglobin 34 pg (25-35) Mean Corpuscular Hemoglobin Concent 33 g/dL (31-37) Red Cell Distribution Width 15.4 % (11.5-14.5) Platelet Count 354 x10^3/uL (140-400) Neutrophils (%) (Auto) 82 % (31-73) Lymphocytes (%) (Auto) 12 % (24-48) Monocytes (%) (Auto) 5 % (0-9) Eosinophils (%) (Auto) 1 % (0-3) Basophils (%) (Auto) 1 % (0-3) Neutrophils # (Auto) 29.1 x10^3/uL (1.8-7.7) Lymphocytes # (Auto) 4.1 x10^3/uL (1.0-4.8) Monocytes # (Auto) 1.7 x10^3/uL (0.0-1.1) Eosinophils # (Auto) 0.4 x10^3/uL (0.0-0.7) Basophils # (Auto) 0.2 x10^3/uL (0.0-0.2) Test 07/19/19 05:43 07/19/19 08:00 07/19/19 12:00 07/19/19 17:30 Glucose (Fingerstick) 194 mg/dL (70-99) O2 Saturation 93 % (92-99) Arterial Blood pH 7.34 (7.35-7.45) Arterial Blood pCO2 at Patient Temp 47 mmHg (35-46) Arterial Blood pO2 at Patient Temp 73 mmHg (75-108) Arterial Blood HCO3 25 mmol/L (21-28) Arterial Blood Base Excess -1 mmol/L (-3-3) FiO2 40 Prothrombin Time 21.3 SEC (11.7-14.0) Prothromb Time International Ratio 1.9 (0.8-1.1) Sodium Level 138 mmol/L (136-145) Potassium Level 3.9 mmol/L (3.5-5.1) Chloride Level 103 mmol/L (98-107) Carbon Dioxide Level 27 mmol/L (21-32) Anion Gap 8 (6-14) Blood Urea Nitrogen 33 mg/dL (7-20) Creatinine 1.2 mg/dL (0.6-1.0) Estimated GFR (Cockcroft-Gault) 47.7 Glucose Level 192 mg/dL (70-99) Calcium Level 8.0 mg/dL (8.5-10.1) Phosphorus Level 2.7 mg/dL (2.6-4.7) Magnesium Level 2.2 mg/dL (1.8-2.4) White Blood Count 37.4 x10^3/uL (4.0-11.0) Red Blood Count 2.89 x10^6/uL (3.50-5.40) Hemoglobin 9.3 g/dL (12.0-15.5) Hematocrit 28.0 % (36.0-47.0) Mean Corpuscular Volume 97 fL (79-100) Mean Corpuscular Hemoglobin 32 pg (25-35) Mean Corpuscular Hemoglobin Concent 33 g/dL (31-37) Red Cell Distribution Width 17.1 % (11.5-14.5) Platelet Count 307 x10^3/uL (140-400) Neutrophils (%) (Auto) 86 % (31-73) Lymphocytes (%) (Auto) 6 % (24-48) Monocytes (%) (Auto) 5 % (0-9) Eosinophils (%) (Auto) 2 % (0-3) Basophils (%) (Auto) 1 % (0-3) Neutrophils # (Auto) 32.1 x10^3/uL (1.8-7.7) Lymphocytes # (Auto) 2.4 x10^3/uL (1.0-4.8) Monocytes # (Auto) 1.9 x10^3/uL (0.0-1.1) Eosinophils # (Auto) 0.8 x10^3/uL (0.0-0.7) Basophils # (Auto) 0.2 x10^3/uL (0.0-0.2) Test 07/19/19 17:40 07/20/19 00:10 07/20/19 00:15 07/20/19 05:30 Sodium Level 138 mmol/L (136-145) 137 mmol/L (136-145) 138 mmol/L (136-145) Potassium Level 4.1 mmol/L (3.5-5.1) 4.1 mmol/L (3.5-5.1) 4.0 mmol/L (3.5-5.1) Chloride Level 104 mmol/L (98-107) 103 mmol/L (98-107) 104 mmol/L (98-107) Carbon Dioxide Level 28 mmol/L (21-32) 28 mmol/L (21-32) 28 mmol/L (21-32) Anion Gap 6 (6-14) 6 (6-14) 6 (6-14) Blood Urea Nitrogen 33 mg/dL (7-20) 32 mg/dL (7-20) 31 mg/dL (7-20) Creatinine 1.2 mg/dL (0.6-1.0) 1.1 mg/dL (0.6-1.0) 1.1 mg/dL (0.6-1.0) Estimated GFR (Cockcroft-Gault) 47.7 52.8 52.8 BUN/Creatinine Ratio 28 (6-20) 28 (6-20) Glucose Level 185 mg/dL (70-99) 181 mg/dL (70-99) 177 mg/dL (70-99) Calcium Level 8.1 mg/dL (8.5-10.1) 8.0 mg/dL (8.5-10.1) 8.2 mg/dL (8.5-10.1) Phosphorus Level 3.1 mg/dL (2.6-4.7) 2.9 mg/dL (2.6-4.7) 2.9 mg/dL (2.6-4.7) Magnesium Level 2.3 mg/dL (1.8-2.4) 2.1 mg/dL (1.8-2.4) 2.3 mg/dL (1.8-2.4) Total Bilirubin 1.0 mg/dL (0.2-1.0) 1.0 mg/dL (0.2-1.0) Aspartate Amino Transf (AST/SGOT) 50 U/L (15-37) 46 U/L (15-37) Alanine Aminotransferase (ALT/SGPT) 21 U/L (14-59) 20 U/L (14-59) Alkaline Phosphatase 128 U/L (46-116) 119 U/L (46-116) Total Protein 5.3 g/dL (6.4-8.2) 5.2 g/dL (6.4-8.2) Albumin 2.5 g/dL (3.4-5.0) 2.4 g/dL (3.4-5.0) Albumin/Globulin Ratio 0.9 (1.0-1.7) 0.9 (1.0-1.7) Glucose (Fingerstick) 170 mg/dL (70-99) White Blood Count 30.1 x10^3/uL (4.0-11.0) Red Blood Count 2.81 x10^6/uL (3.50-5.40) Hemoglobin 9.1 g/dL (12.0-15.5) Hematocrit 27.5 % (36.0-47.0) Mean Corpuscular Volume 98 fL (79-100) Mean Corpuscular Hemoglobin 32 pg (25-35) Mean Corpuscular Hemoglobin Concent 33 g/dL (31-37) Red Cell Distribution Width 16.8 % (11.5-14.5) Platelet Count 281 x10^3/uL (140-400) Neutrophils (%) (Auto) 81 % (31-73) Lymphocytes (%) (Auto) 10 % (24-48) Monocytes (%) (Auto) 6 % (0-9) Eosinophils (%) (Auto) 2 % (0-3) Basophils (%) (Auto) 1 % (0-3) Neutrophils # (Auto) 24.4 x10^3/uL (1.8-7.7) Lymphocytes # (Auto) 3.0 x10^3/uL (1.0-4.8) Monocytes # (Auto) 1.7 x10^3/uL (0.0-1.1) Eosinophils # (Auto) 0.7 x10^3/uL (0.0-0.7) Basophils # (Auto) 0.2 x10^3/uL (0.0-0.2) Test 07/20/19 05:37 07/20/19 08:00 07/20/19 11:29 07/20/19 11:30 Glucose (Fingerstick) 182 mg/dL (70-99) 163 mg/dL (70-99) O2 Saturation 95 % (92-99) Arterial Blood pH 7.34 (7.35-7.45) Arterial Blood pCO2 at Patient Temp 41 mmHg (35-46) Arterial Blood pO2 at Patient Temp 83 mmHg (75-108) Arterial Blood HCO3 22 mmol/L (21-28) Arterial Blood Base Excess -4 mmol/L (-3-3) FiO2 30% Sodium Level 137 mmol/L (136-145) Potassium Level 3.7 mmol/L (3.5-5.1) Chloride Level 104 mmol/L (98-107) Carbon Dioxide Level 29 mmol/L (21-32) Anion Gap 4 (6-14) Blood Urea Nitrogen 31 mg/dL (7-20) Creatinine 1.1 mg/dL (0.6-1.0) Estimated GFR (Cockcroft-Gault) 52.8 Glucose Level 165 mg/dL (70-99) Calcium Level 7.2 mg/dL (8.5-10.1) Phosphorus Level 2.9 mg/dL (2.6-4.7) Magnesium Level 2.0 mg/dL (1.8-2.4) Test 07/20/19 16:00 White Blood Count 22.6 x10^3/uL (4.0-11.0) Red Blood Count 2.75 x10^6/uL (3.50-5.40) Hemoglobin 8.9 g/dL (12.0-15.5) Hematocrit 26.9 % (36.0-47.0) Mean Corpuscular Volume 98 fL (79-100) Mean Corpuscular Hemoglobin 32 pg (25-35) Mean Corpuscular Hemoglobin Concent 33 g/dL (31-37) Red Cell Distribution Width 17.1 % (11.5-14.5) Platelet Count 257 x10^3/uL (140-400) Neutrophils (%) (Auto) 82 % (31-73) Lymphocytes (%) (Auto) 10 % (24-48) Monocytes (%) (Auto) 6 % (0-9) Eosinophils (%) (Auto) 2 % (0-3) Basophils (%) (Auto) 1 % (0-3) Neutrophils # (Auto) 18.5 x10^3/uL (1.8-7.7) Lymphocytes # (Auto) 2.2 x10^3/uL (1.0-4.8) Monocytes # (Auto) 1.3 x10^3/uL (0.0-1.1) Eosinophils # (Auto) 0.5 x10^3/uL (0.0-0.7) Basophils # (Auto) 0.1 x10^3/uL (0.0-0.2) Sodium Level 137 mmol/L (136-145) Potassium Level 3.9 mmol/L (3.5-5.1) Chloride Level 104 mmol/L (98-107) Carbon Dioxide Level 28 mmol/L (21-32) Anion Gap 5 (6-14) Blood Urea Nitrogen 30 mg/dL (7-20) Creatinine 1.1 mg/dL (0.6-1.0) Estimated GFR (Cockcroft-Gault) 52.8 Glucose Level 170 mg/dL (70-99) Calcium Level 8.2 mg/dL (8.5-10.1) Phosphorus Level 2.9 mg/dL (2.6-4.7) Magnesium Level 2.3 mg/dL (1.8-2.4) Laboratory Tests Test 07/19/19 17:30 07/19/19 17:40 07/20/19 00:10 07/20/19 00:15 White Blood Count 37.4 x10^3/uL (4.0-11.0) Red Blood Count 2.89 x10^6/uL (3.50-5.40) Hemoglobin 9.3 g/dL (12.0-15.5) Hematocrit 28.0 % (36.0-47.0) Mean Corpuscular Volume 97 fL (79-100) Mean Corpuscular Hemoglobin 32 pg (25-35) Mean Corpuscular Hemoglobin Concent 33 g/dL (31-37) Red Cell Distribution Width 17.1 % (11.5-14.5) Platelet Count 307 x10^3/uL (140-400) Neutrophils (%) (Auto) 86 % (31-73) Lymphocytes (%) (Auto) 6 % (24-48) Monocytes (%) (Auto) 5 % (0-9) Eosinophils (%) (Auto) 2 % (0-3) Basophils (%) (Auto) 1 % (0-3) Neutrophils # (Auto) 32.1 x10^3/uL (1.8-7.7) Lymphocytes # (Auto) 2.4 x10^3/uL (1.0-4.8) Monocytes # (Auto) 1.9 x10^3/uL (0.0-1.1) Eosinophils # (Auto) 0.8 x10^3/uL (0.0-0.7) Basophils # (Auto) 0.2 x10^3/uL (0.0-0.2) Sodium Level 138 mmol/L (136-145) 137 mmol/L (136-145) Potassium Level 4.1 mmol/L (3.5-5.1) 4.1 mmol/L (3.5-5.1) Chloride Level 104 mmol/L (98-107) 103 mmol/L (98-107) Carbon Dioxide Level 28 mmol/L (21-32) 28 mmol/L (21-32) Anion Gap 6 (6-14) 6 (6-14) Blood Urea Nitrogen 33 mg/dL (7-20) 32 mg/dL (7-20) Creatinine 1.2 mg/dL (0.6-1.0) 1.1 mg/dL (0.6-1.0) Estimated GFR (Cockcroft-Gault) 47.7 52.8 BUN/Creatinine Ratio 28 (6-20) Glucose Level 185 mg/dL (70-99) 181 mg/dL (70-99) Calcium Level 8.1 mg/dL (8.5-10.1) 8.0 mg/dL (8.5-10.1) Phosphorus Level 3.1 mg/dL (2.6-4.7) 2.9 mg/dL (2.6-4.7) Magnesium Level 2.3 mg/dL (1.8-2.4) 2.1 mg/dL (1.8-2.4) Total Bilirubin 1.0 mg/dL (0.2-1.0) Aspartate Amino Transf (AST/SGOT) 50 U/L (15-37) Alanine Aminotransferase (ALT/SGPT) 21 U/L (14-59) Alkaline Phosphatase 128 U/L (46-116) Total Protein 5.3 g/dL (6.4-8.2) Albumin 2.5 g/dL (3.4-5.0) Albumin/Globulin Ratio 0.9 (1.0-1.7) Glucose (Fingerstick) 170 mg/dL (70-99) Test 07/20/19 05:30 07/20/19 05:37 07/20/19 08:00 07/20/19 11:29 White Blood Count 30.1 x10^3/uL (4.0-11.0) Red Blood Count 2.81 x10^6/uL (3.50-5.40) Hemoglobin 9.1 g/dL (12.0-15.5) Hematocrit 27.5 % (36.0-47.0) Mean Corpuscular Volume 98 fL (79-100) Mean Corpuscular Hemoglobin 32 pg (25-35) Mean Corpuscular Hemoglobin Concent 33 g/dL (31-37) Red Cell Distribution Width 16.8 % (11.5-14.5) Platelet Count 281 x10^3/uL (140-400) Neutrophils (%) (Auto) 81 % (31-73) Lymphocytes (%) (Auto) 10 % (24-48) Monocytes (%) (Auto) 6 % (0-9) Eosinophils (%) (Auto) 2 % (0-3) Basophils (%) (Auto) 1 % (0-3) Neutrophils # (Auto) 24.4 x10^3/uL (1.8-7.7) Lymphocytes # (Auto) 3.0 x10^3/uL (1.0-4.8) Monocytes # (Auto) 1.7 x10^3/uL (0.0-1.1) Eosinophils # (Auto) 0.7 x10^3/uL (0.0-0.7) Basophils # (Auto) 0.2 x10^3/uL (0.0-0.2) Sodium Level 138 mmol/L (136-145) Potassium Level 4.0 mmol/L (3.5-5.1) Chloride Level 104 mmol/L (98-107) Carbon Dioxide Level 28 mmol/L (21-32) Anion Gap 6 (6-14) Blood Urea Nitrogen 31 mg/dL (7-20) Creatinine 1.1 mg/dL (0.6-1.0) Estimated GFR (Cockcroft-Gault) 52.8 BUN/Creatinine Ratio 28 (6-20) Glucose Level 177 mg/dL (70-99) Calcium Level 8.2 mg/dL (8.5-10.1) Phosphorus Level 2.9 mg/dL (2.6-4.7) Magnesium Level 2.3 mg/dL (1.8-2.4) Total Bilirubin 1.0 mg/dL (0.2-1.0) Aspartate Amino Transf (AST/SGOT) 46 U/L (15-37) Alanine Aminotransferase (ALT/SGPT) 20 U/L (14-59) Alkaline Phosphatase 119 U/L (46-116) Total Protein 5.2 g/dL (6.4-8.2) Albumin 2.4 g/dL (3.4-5.0) Albumin/Globulin Ratio 0.9 (1.0-1.7) Glucose (Fingerstick) 182 mg/dL (70-99) 163 mg/dL (70-99) O2 Saturation 95 % (92-99) Arterial Blood pH 7.34 (7.35-7.45) Arterial Blood pCO2 at Patient Temp 41 mmHg (35-46) Arterial Blood pO2 at Patient Temp 83 mmHg (75-108) Arterial Blood HCO3 22 mmol/L (21-28) Arterial Blood Base Excess -4 mmol/L (-3-3) FiO2 30% Test 07/20/19 11:30 07/20/19 16:00 Sodium Level 137 mmol/L (136-145) 137 mmol/L (136-145) Potassium Level 3.7 mmol/L (3.5-5.1) 3.9 mmol/L (3.5-5.1) Chloride Level 104 mmol/L (98-107) 104 mmol/L (98-107) Carbon Dioxide Level 29 mmol/L (21-32) 28 mmol/L (21-32) Anion Gap 4 (6-14) 5 (6-14) Blood Urea Nitrogen 31 mg/dL (7-20) 30 mg/dL (7-20) Creatinine 1.1 mg/dL (0.6-1.0) 1.1 mg/dL (0.6-1.0) Estimated GFR (Cockcroft-Gault) 52.8 52.8 Glucose Level 165 mg/dL (70-99) 170 mg/dL (70-99) Calcium Level 7.2 mg/dL (8.5-10.1) 8.2 mg/dL (8.5-10.1) Phosphorus Level 2.9 mg/dL (2.6-4.7) 2.9 mg/dL (2.6-4.7) Magnesium Level 2.0 mg/dL (1.8-2.4) 2.3 mg/dL (1.8-2.4) White Blood Count 22.6 x10^3/uL (4.0-11.0) Red Blood Count 2.75 x10^6/uL (3.50-5.40) Hemoglobin 8.9 g/dL (12.0-15.5) Hematocrit 26.9 % (36.0-47.0) Mean Corpuscular Volume 98 fL (79-100) Mean Corpuscular Hemoglobin 32 pg (25-35) Mean Corpuscular Hemoglobin Concent 33 g/dL (31-37) Red Cell Distribution Width 17.1 % (11.5-14.5) Platelet Count 257 x10^3/uL (140-400) Neutrophils (%) (Auto) 82 % (31-73) Lymphocytes (%) (Auto) 10 % (24-48) Monocytes (%) (Auto) 6 % (0-9) Eosinophils (%) (Auto) 2 % (0-3) Basophils (%) (Auto) 1 % (0-3) Neutrophils # (Auto) 18.5 x10^3/uL (1.8-7.7) Lymphocytes # (Auto) 2.2 x10^3/uL (1.0-4.8) Monocytes # (Auto) 1.3 x10^3/uL (0.0-1.1) Eosinophils # (Auto) 0.5 x10^3/uL (0.0-0.7) Basophils # (Auto) 0.1 x10^3/uL (0.0-0.2) Microbiology 07/12/19 Blood Culture - Final, Complete NO GROWTH AFTER 5 DAYS Medications Current Medications Sodium Chloride 1,000 ml @ 1,000 mls/hr Q1H IV Last administered on 07/04/19at 03:00; Start 07/04/19 at 03:00; Stop 07/04/19 at 03:59; Status DC Ondansetron HCl (Zofran) 4 mg 1X ONCE IVP Last administered on 07/04/19at 03:2 7; Start 07/04/19 at 03:00; Stop 07/04/19 at 03:01; Status DC Morphine Sulfate (Morphine Sulfate) 4 mg 1X ONCE IV ; Start 07/04/19 at 03:00; Stop 07/04/19 at 03:01; Status Cancel Ketorolac Tromethamine (Toradol 30mg Vial) 30 mg 1X ONCE IV Last administered on 07/04/19at 02:54; Start 07/04/19 at 03:00; Stop 07/04/19 at 03:01; Status DC Fentanyl Citrate (Fentanyl 2ml Vial) 25 mcg 1X ONCE IVP Last administered on 07/04/19at 03:23; Start 07/04/19 at 03:30; Stop 07/04/19 at 03:31; Status DC Fentanyl Citrate (Fentanyl 2ml Vial) 100 mcg STK-MED ONCE .ROUTE ; Start 07/04/19 at 03:18; Stop 07/04/19 at 03:18; Status DC Iohexol (Omnipaque 350 Mg/ml) 90 ml 1X ONCE IV Last administered on 07/04/19at 03:25; Start 07/04/19 at 03:30; Stop 07/04/19 at 03:31; Status DC Info (CONTRAST GIVEN -- Rx MONITORING) 1 each PRN DAILY PRN MC SEE COMMENTS; Start 07/04/19 at 03:30; Stop 07/06/19 at 03:29; Status DC Hydromorphone HCl (Dilaudid) 0.5 mg 1X ONCE IV Last administered on 07/04/19at 03:55; Start 07/04/19 at 04:30; Stop 07/04/19 at 04:32; Status DC Ondansetron HCl (Zofran) 4 mg PRN Q8HRS PRN IV NAUSEA/VOMITING 1ST CHOICE; Start 07/04/19 at 05:00; Stop 07/04/19 at 09:27; Status DC Morphine Sulfate (Morphine Sulfate) 2 mg PRN Q2HR PRN IV SEVERE PAIN 7-10 Last administered on 07/05/19at 12:26; Start 07/04/19 at 05:00; Stop 07/05/19 at 14:15; Status DC Sodium Chloride 1,000 ml @ 125 mls/hr Q8H IV Last administered on 07/04/19at 20:56; Start 07/04/19 at 05:00; Stop 07/05/19 at 04:59; Status DC Hydromorphone HCl (Dilaudid) 0.5 mg PRN Q3HRS PRN IV SEVERE PAIN 7-10 Last administered on 07/05/19at 10:06; Start 07/04/19 at 05:00; Stop 07/05/19 at 12 :01; Status DC Piperacillin Sod/ Tazobactam Sod 4.5 gm/Sodium Chloride 100 ml @ 200 mls/hr 1X ONCE IV Last administered on 07/04/19at 05:44; Start 07/04/19 at 06:00; Stop 07/04/19 at 06:29; Status DC Ondansetron HCl (Zofran) 4 mg PRN Q4HRS PRN IV NAUSEA/VOMITING 1ST CHOICE Last administered on 07/09/19at 16:15; Start 07/04/19 at 09:30 Insulin Human Lispro (HumaLOG) 0-9 UNITS Q6HRS SQ Last administered on 07/20/19at 11:32; Start 07/04/19 at 09:30 Dextrose (Dextrose 50%-Water Syringe) 12.5 gm PRN Q15MIN PRN IV SEE COMMENTS; Start 07/04/19 at 09:30 Pantoprazole Sodium (PROTONIX VIAL for IV PUSH) 40 mg DAILYAC IVP Last administered on 07/20/19at 08:15; Start 07/04/19 at 11:30 Prochlorperazine Edisylate (Compazine) 10 mg PRN Q6HRS PRN IV NAUSEA/VOMITING, 2nd CHOICE Last administered on 07/05/19at 00:42; Start 07/04/19 at 17:45 Atenolol (Tenormin) 100 mg DAILY PO ; Start 07/05/19 at 09:00; Stop 07/04/19 at 20:08; Status DC Metoprolol Tartrate (Lopressor Vial) 2.5 mg Q6HRS IVP Last administered on 07/05/19at 05:51; Start 07/04/19 at 20:15; Stop 07/05/19 at 10:02; Status DC Metoprolol Tartrate (Lopressor Vial) 5 mg Q6HRS IVP Last administered on 07/14/19at 00:12; Start 07/05/19 at 10:15; Stop 07/16/19 at 08:48; Status DC Hydromorphone HCl (Dilaudid) 1 mg PRN Q3HRS PRN IV SEVERE PAIN 7-10 Last administered on 07/11/19at 05:13; Start 07/05/19 at 12:00; Stop 07/19/19 at 00:25; Status DC Lidocaine HCl (Buffered Lidocaine 1%) 3 ml STK-MED ONCE .ROUTE ; Start 07/05/19 at 12:55; Stop 07/05/19 at 12:56; Status DC Albumin Human 500 ml @ 125 mls/hr 1X ONCE IV Last administered on 07/05/19at 14:33; Start 07/05/19 at 14:30; Stop 07/05/19 at 18:32; Status DC Norepinephrine Bitartrate 8 mg/ Dextrose 258 ml @ 17.299 mls/ hr CONT PRN IV PER PROTOCOL Last administered on 07/20/19at 05:56; Start 07/05/19 at 15:30 Sodium Chloride 1,000 ml @ 125 mls/hr Q8H IV Last administered on 07/05/19at 21:04; Start 07/05/19 at 16:00; Stop 07/06/19 at 02:42; Status DC Albumin Human 500 ml @ 125 mls/hr PRN BID PRN IV After every 2L NSS & BP < 90mm Last administered on 07/20/19at 14:21; Start 07/05/19 at 16:00 Iohexol (Omnipaque 300 Mg/ml) 60 ml 1X ONCE IV Last administered on 07/05/19at 17:20; Start 07/05/19 at 17:00; Stop 07/05/19 at 17:01; Status DC Info (CONTRAST GIVEN -- Rx MONITORING) 1 each PRN DAILY PRN MC SEE COMMENTS; Start 07/05/19 at 17:00; Stop 07/07/19 at 16:59; Status DC Meropenem 1 gm/ Sodium Chloride 100 ml @ 200 mls/hr Q8HRS IV Last administered on 07/06/19at 05:45; Start 07/05/19 at 20:00; Stop 07/06/19 at 08:48; Status DC Furosemide (Lasix) 40 mg 1X ONCE IVP Last administered on 07/05/19at 22:12; Start 07/05/19 at 22:30; Stop 07/05/19 at 22:31; Status DC Calcium Chloride 1000 mg/Sodium Chloride 110 ml @ 220 mls/hr 1X ONCE IV Last administered on 07/05/19at 22:11; Start 07/05/19 at 22:30; Stop 07/05/19 at 22:59; Status DC Albuterol Sulfate (Ventolin Neb Soln) 2.5 mg 1X ONCE NEB Last administered on 07/06/19at 00:56; Start 07/05/19 at 22:30; Stop 07/05/19 at 22:31; Status DC Insulin Human Regular (HumuLIN R VIAL) 5 unit 1X ONCE IV Last administered on 07/05/19at 22:14; Start 07/05/19 at 22:30; Stop 07/05/19 at 22:31; Status DC Magnesium Sulfate 50 ml @ 25 mls/hr 1X ONCE IV Last administered on 07/06/19at 02:57; Start 07/06/19 at 03:00; Stop 07/06/19 at 04:59; Status DC Calcium Gluconate 1000 mg/Sodium Chloride 110 ml @ 220 mls/hr 1X ONCE IV Last administered on 07/06/19at 02:46; Start 07/06/19 at 03:00; Stop 07/06/19 at 03:29; Status DC Sodium Chloride 1,000 ml @ 200 mls/hr Q5H IV Last administered on 07/06/19at 02:46; Start 07/06/19 at 03:00; Stop 07/06/19 at 10:21; Status DC Calcium Gluconate 1000 mg/Sodium Chloride 110 ml @ 220 mls/hr 1X ONCE IV Last administered on 07/06/19at 03:21; Start 07/06/19 at 03:30; Stop 07/06/19 at 03:59; Status DC Sodium Bicarbonate 50 meq/Sodium Chloride 1,050 ml @ 75 mls/hr Q14H IV Last administered on 07/10/19at 21:10; Start 07/06/19 at 07:30; Stop 07/11/19 at 10:28; Status DC Calcium Gluconate 2000 mg/Sodium Chloride 120 ml @ 220 mls/hr 1X ONCE IV Last administered on 07/06/19at 09:05; Start 07/06/19 at 07:30; Stop 07/06/19 at 08:02; Status DC Lidocaine HCl (Xylocaine-Mpf 1% 2ml Vial) 2 ml STK-MED ONCE .ROUTE ; Start 07/06/19 at 08:47; Stop 07/06/19 at 08:47; Status DC Meropenem 500 mg/ Sodium Chloride 50 ml @ 100 mls/hr Q12HR IV Last administered on 07/11/19at 21:01; Start 07/06/19 at 18:00; Stop 07/12/19 at 07:58; Status DC Lidocaine HCl (Buffered Lidocaine 1%) 3 ml STK-MED ONCE .ROUTE ; Start 07/06/19 at 09:46; Stop 07/06/19 at 09:46; Status DC Lidocaine HCl (Buffered Lidocaine 1%) 6 ml 1X ONCE INJ Last administered on 07/06/19at 10:26; Start 07/06/19 at 10:15; Stop 07/06/19 at 10:16; Status DC Info (Tpn Per Pharmacy) 1 each PRN DAILY PRN MC SEE COMMENTS Last administered on 07/20/19at 13:02; Start 07/06/19 at 12:00 Sodium Chloride 1,000 ml @ 1,000 mls/hr Q1H PRN IV hypotension; Start 07/06/19 at 12:07; Stop 07/06/19 at 18:06; Status DC Diphenhydramine HCl (Benadryl) 25 mg 1X PRN PRN IV ITCHING; Start 07/06/19 at 12:15; Stop 07/07/19 at 12:14; Status DC Diphenhydramine HCl (Benadryl) 25 mg 1X PRN PRN IV ITCHING; Start 07/06/19 at 12:15; Stop 07/07/19 at 12:14; Status DC Sodium Chloride 1,000 ml @ 400 mls/hr Q2H30M PRN IV PATENCY; Start 07/06/19 at 12:07; Stop 07/07/19 at 00:06; Status DC Info (PHARMACY MONITORING -- do not chart) 1 each PRN DAILY PRN MC SEE COMMENTS; Start 07/06/19 at 12:15; Stop 07/08/19 at 08:13; Status DC Sodium Chloride 90 meq/Calcium Gluconate 10 meq/ Multivitamins 10 ml/Chromium/ Copper/Manganese/ Seleni/Zn 1 ml/ Total Parenteral Nutrition/Amino Acids/Dextrose/ Fat Emulsion Intravenous 55.005 ml @ 2.292 mls/hr TPN CONT IV ; Start 07/06/19 at 22:00; Stop 07/06/19 at 12:33; Status DC Info (Tpn Per Pharmacy) 1 each PRN DAILY PRN MC SEE COMMENTS; Start 07/06/19 at 12:30; Status UNV Sodium Chloride 90 meq/Calcium Gluconate 10 meq/ Multivitamins 10 ml/Chromium/ Copper/Manganese/ Seleni/Zn 0.5 ml/ Total Parenteral Nutrition/Amino Acids/Dextrose/ Fat Emulsion Intravenous 1,512 ml @ 63 mls/hr TPN CONT IV Last administered on 07/06/19at 22:06; Start 07/06/19 at 22:00; Stop 07/07/19 at 21:59; Status DC Calcium Carbonate/ Glycine (Tums) 500 mg PRN AFTMEALHC PRN PO INDIGESTION; Start 07/06/19 at 17:45 Calcium Gluconate (Calcium Gluconate) 2,000 mg 1X ONCE IVP Last administered on 07/07/19at 02:19; Start 07/07/19 at 02:15; Stop 07/07/19 at 02:16; Status DC Calcium Chloride 3000 mg/Sodium Chloride 1,030 ml @ 50 mls/hr [id number] IV Last administered on 07/09/19at 02:17; Start 07/07/19 at 08:00; Stop 07/09/19 at 15:23; Status DC Lorazepam (Ativan Inj) 1 mg PRN Q4HRS PRN IVP ANXIETY / AGITATION Last administered on 07/11/19at 00:34; Start 07/07/19 at 09:00 Sodium Chloride 1,000 ml @ 1,000 mls/hr Q1H PRN IV hypotension; Start 07/07/19 at 08:56; Stop 07/07/19 at 14:55; Status DC Albumin Human 200 ml @ 200 mls/hr 1X PRN PRN IV Hypotension; Start 07/07/19 at 09:00; Stop 07/07/19 at 14:59; Status DC Diphenhydramine HCl (Benadryl) 25 mg 1X PRN PRN IV ITCHING; Start 07/07/19 at 09:00; Stop 07/08/19 at 08:59; Status DC Diphenhydramine HCl (Benadryl) 25 mg 1X PRN PRN IV ITCHING; Start 07/07/19 at 09:00; Stop 07/08/19 at 08:59; Status DC Sodium Chloride 1,000 ml @ 400 mls/hr Q2H30M PRN IV PATENCY; Start 07/07/19 at 08:56; Stop 07/07/19 at 20:55; Status DC Info (PHARMACY MONITORING -- do not chart) 1 each PRN DAILY PRN MC SEE COMMENTS; Start 07/07/19 at 09:00; Status UNV Info (PHARMACY MONITORING -- do not chart) 1 each PRN DAILY PRN MC SEE COMMENTS; Start 07/07/19 at 09:00; Stop 07/08/19 at 08:13; Status DC Digoxin (Lanoxin) 500 mcg 1X ONCE IV Last administered on 07/07/19at 10:04; Start 07/07/19 at 10:00; Stop 07/07/19 at 10:01; Status DC Digoxin (Lanoxin) 125 mcg 1X ONCE IV Last administered on 07/07/19at 17:10; Start 07/07/19 at 18:00; Stop 07/07/19 at 18:01; Status DC Magnesium Sulfate 100 ml @ 25 mls/hr 1X ONCE IV Last administered on 07/07/19at 12:48; Start 07/07/19 at 13:00; Stop 07/07/19 at 16:59; Status DC Sodium Chloride 90 meq/Magnesium Sulfate 10 meq/ Calcium Gluconate 20 meq/ Multivitamins 10 ml/Chromium/ Copper/Manganese/ Seleni/Zn 0.5 ml/ Total Parenteral Nutrition/Amino Acids/Dextrose/ Fat Emulsion Intravenous 1,512 ml @ 63 mls/hr TPN CONT IV Last administered on 07/07/19at 22:25; Start 07/07/19 at 22:00; Stop 07/08/19 at 21:59; Status DC Sodium Chloride 1,000 ml @ 1,000 mls/hr Q1H PRN IV hypotension; Start 07/08/19 at 08:05; Stop 07/08/19 at 14:04; Status DC Albumin Human 200 ml @ 200 mls/hr 1X ONCE IV Last administered on 07/08/19at 08:57; Start 07/08/19 at 08:15; Stop 07/08/19 at 09:14; Status DC Diphenhydramine HCl (Benadryl) 25 mg 1X PRN PRN IV ITCHING; Start 07/08/19 at 08:15; Stop 07/09/19 at 08:14; Status DC Diphenhydramine HCl (Benadryl) 25 mg 1X PRN PRN IV ITCHING; Start 07/08/19 at 08:15; Stop 07/09/19 at 08:14; Status DC Sodium Chloride 1,000 ml @ 400 mls/hr Q2H30M PRN IV PATENCY; Start 07/08/19 at 08:05; Stop 07/08/19 at 20:04; Status DC Info (PHARMACY MONITORING -- do not chart) 1 each PRN DAILY PRN MC SEE COMMENTS; Start 07/08/19 at 08:15; Stop 07/12/19 at 07:57; Status DC Sodium Chloride 90 meq/Potassium Chloride 15 meq/ Potassium Phosphate 10 mmol/ Magnesium Sulfate 10 meq/Calcium Gluconate 20 meq/ Multivitamins 10 ml/Chromium/ Copper/Manganese/ Seleni/Zn 0.5 ml/ Total Parenteral Nutrition/Amino Acids/Dextrose/ Fat Emulsion Intravenous 1,512 ml @ 63 mls/hr TPN CONT IV Last administered on 07/08/19at 21:01; Start 07/08/19 at 22:00; Stop 07/09/19 at 21:59; Status DC Potassium Chloride/Water 100 ml @ 100 mls/hr 1X ONCE IV Last administered on 07/08/19at 14:09; Start 07/08/19 at 14:00; Stop 07/08/19 at 14:59; Status DC Benzocaine (Hurricaine One) 1 spray 1X ONCE MM Last administered on 07/08/19at 16:38; Start 07/08/19 at 14:30; Stop 07/08/19 at 14:31; Status DC Lidocaine HCl (Glydo (Lidocaine) Jelly) 1 ramu 1X ONCE MM Last administered on 07/08/19at 16:38; Start 07/08/19 at 14:30; Stop 07/08/19 at 14:31; Status DC Linezolid/Dextrose 300 ml @ 300 mls/hr Q12HR IV Last administered on 07/14/19at 21:04; Start 07/08/19 at 20:00; Stop 07/15/19 at 07:50; Status DC Acetaminophen (Tylenol) 650 mg PRN Q6HRS PRN PO MILD PAIN / TEMP; Start 07/09/19 at 03:30; Stop 07/09/19 at 03:36; Status DC Acetaminophen (Tylenol) 650 mg PRN Q6HRS PRN PEG MILD PAIN / TEMP Last administered on 07/14/19at 07:35; Start 07/09/19 at 03:36 Sodium Chloride 1,000 ml @ 1,000 mls/hr Q1H PRN IV hypotension; Start 07/09/19 at 07:50; Stop 07/09/19 at 13:49; Status DC Albumin Human 200 ml @ 200 mls/hr 1X PRN PRN IV Hypotension; Start 07/09/19 at 08:00; Stop 07/09/19 at 13:59; Status DC Sodium Chloride (Normal Saline Flush) 10 ml 1X PRN PRN IV AP catheter pack; Start 07/09/19 at 08:00; Stop 07/10/19 at 07:59; Status DC Sodium Chloride (Normal Saline Flush) 10 ml 1X PRN PRN IV HATCHERY MANAGER catheter pack; Start 07/09/19 at 08:00; Stop 07/10/19 at 07:59; Status DC Sodium Chloride 1,000 ml @ 400 mls/hr Q2H30M PRN IV PATENCY; Start 07/09/19 at 07:50; Stop 07/09/19 at 19:49; Status DC Info (PHARMACY MONITORING -- do not chart) 1 each PRN DAILY PRN MC SEE COMMENTS; Start 07/09/19 at 08:00; Status UNV Info (PHARMACY MONITORING -- do not chart) 1 each PRN DAILY PRN MC SEE COMMENTS; Start 07/09/19 at 08:00; Stop 07/11/19 at 08:25; Status DC Sodium Chloride 90 meq/Potassium Chloride 15 meq/ Potassium Phosphate 10 mmol/ Magnesium Sulfate 10 meq/Calcium Gluconate 20 meq/ Multivitamins 10 ml/Chromium/ Copper/Manganese/ Seleni/Zn 0.5 ml/ Total Parenteral Nutrition/Amino Acids/Dextrose/ Fat Emulsion Intravenous 1,512 ml @ 63 mls/hr TPN CONT IV Last administered on 07/09/19at 20:57; Start 07/09/19 at 22:00; Stop 07/10/19 at 21:59; Status DC Sodium Chloride 90 meq/Potassium Chloride 15 meq/ Potassium Phosphate 15 mmol/ Magnesium Sulfate 10 meq/Calcium Gluconate 20 meq/ Multivitamins 10 ml/Chromium/ Copper/Manganese/ Seleni/Zn 0.5 ml/ Total Parenteral Nutrition/Amino Acids/Dextrose/ Fat Emulsion Intravenous 1,512 ml @ 63 mls/hr TPN CONT IV ; Start 07/10/19 at 22:00; Stop 07/10/19 at 14:16; Status DC Sodium Chloride 90 meq/Potassium Chloride 15 meq/ Potassium Phosphate 15 mmol/ Magnesium Sulfate 10 meq/Calcium Gluconate 20 meq/ Multivitamins 10 ml/Chromium/ Copper/Manganese/ Seleni/Zn 0.5 ml/ Total Parenteral Nutrition/Amino Acids/Dextrose/ Fat Emulsion Intravenous 1,200 ml @ 50 mls/hr TPN CONT IV ; Start 07/10/19 at 22:00; Stop 07/10/19 at 14:17; Status DC Sodium Chloride 90 meq/Potassium Chloride 15 meq/ Potassium Phosphate 10 mmol/ Magnesium Sulfate 10 meq/Calcium Gluconate 20 meq/ Multivitamins 10 ml/Chromium/ Copper/Manganese/ Seleni/Zn 0.5 ml/ Total Parenteral Nutrition/Amino Acids/Dextrose/ Fat Emulsion Intravenous 1,200 ml @ 50 mls/hr TPN CONT IV Last administered on 07/10/19at 23:29; Start 07/10/19 at 22:00; Stop 07/11/19 at 21:59; Status DC Sodium Chloride 1,000 ml @ 1,000 mls/hr Q1H PRN IV hypotension; Start 07/11/19 at 07:28; Stop 07/11/19 at 13:27; Status DC Albumin Human 200 ml @ 200 mls/hr 1X ONCE IV Last administered on 07/11/19at 08:51; Start 07/11/19 at 07:30; Stop 07/11/19 at 08:29; Status DC Diphenhydramine HCl (Benadryl) 25 mg 1X PRN PRN IV ITCHING; Start 07/11/19 at 07:30; Stop 07/12/19 at 07:29; Status DC Diphenhydramine HCl (Benadryl) 25 mg 1X PRN PRN IV ITCHING; Start 07/11/19 at 07:30; Stop 07/12/19 at 07:29; Status DC Sodium Chloride 1,000 ml @ 400 mls/hr Q2H30M PRN IV PATENCY; Start 07/11/19 at 07:28; Stop 07/11/19 at 19:27; Status DC Info (PHARMACY MONITORING -- do not chart) 1 each PRN DAILY PRN MC SEE COMMENTS; Start 07/11/19 at 07:30 Metronidazole 100 ml @ 100 mls/hr Q6HRS IV Last administered on 07/20/19at 11:32; Start 07/11/19 at 08:30 Micafungin Sodium 100 mg/Dextrose 100 ml @ 100 mls/hr Q24H IV Last administered on 07/20/19at 08:30; Start 07/11/19 at 09:00 Propofol 0 ml @ As Directed STK-MED ONCE IV ; Start 07/11/19 at 07:53; Stop 07/11/19 at 07:53; Status DC Etomidate (Amidate) 20 mg STK-MED ONCE IV ; Start 07/11/19 at 07:53; Stop 07/11/19 at 07:54; Status DC Midazolam HCl (Versed) 5 mg STK-MED ONCE .ROUTE ; Start 07/11/19 at 07:57; Stop 07/11/19 at 07:57; Status DC Fentanyl Citrate 30 ml @ 0 mls/hr CONT PRN IV SEE PROTOCOL Last administered on 07/20/19at 09:22; Start 07/11/19 at 08:15 Artificial Tears (Artificial Tears) 1 drop PRN Q1HR PRN OU DRY EYE; Start 07/11/19 at 08:15 Midazolam HCl 50 mg/Sodium Chloride 50 ml @ 0 mls/hr CONT PRN IV SEE PROTOCOL Last administered on 07/14/19at 22:39; Start 07/11/19 at 08:15; Stop 07/16/19 at 15:59; Status DC Etomidate (Amidate) 8 mg 1X ONCE IV Last administered on 07/11/19at 08:33; Start 07/11/19 at 08:30; Stop 07/11/19 at 08:31; Status DC Succinylcholine Chloride (Anectine) 120 mg 1X ONCE IV Last administered on 07/11/19at 08:34; Start 07/11/19 at 08:30; Stop 07/11/19 at 08:31; Status DC Midazolam HCl (Versed) 5 mg 1X ONCE IV ; Start 07/11/19 at 08:30; Stop 07/11/19 at 08:31; Status DC Potassium Chloride 15 meq/ Bicarbonate Dialysis Soln w/ out KCl 5,007.5 ml @ 1,000 mls/ hr Q5H1M IV Last administered on 07/12/19at 11:11; Start 07/11/19 at 12:00; Stop 07/12/19 at 11:15; Status DC Potassium Chloride 15 meq/ Bicarbonate Dialysis Soln w/ out KCl 5,007.5 ml @ 1,000 mls/ hr Q5H1M IV Last administered on 07/12/19at 11:12; Start 07/11/19 at 12:00; Stop 07/12/19 at 11:17; Status DC Potassium Chloride 15 meq/ Bicarbonate Dialysis Soln w/ out KCl 5,007.5 ml @ 1,000 mls/ hr Q5H1M IV Last administered on 07/12/19at 11:11; Start 07/11/19 at 12:00; Stop 07/12/19 at 11:19; Status DC Sodium Chloride 90 meq/Potassium Chloride 15 meq/ Potassium Phosphate 10 mmol/ Magnesium Sulfate 10 meq/Calcium Gluconate 20 meq/ Multivitamins 10 ml/Chromium/ Copper/Manganese/ Seleni/Zn 0.5 ml/ Total Parenteral Nutrition/Amino Acids/Dextrose/ Fat Emulsion Intravenous 1,400 ml @ 58.333 mls/ hr TPN CONT IV Last administered on 07/11/19at 21:42; Start 07/11/19 at 22:00; Stop 07/12/19 at 21:59; Status DC Heparin Sodium (Porcine) (Heparin Sodium) 5,000 unit Q8HRS SQ Last administered on 07/16/19at 05:55; Start 07/11/19 at 15:00; Stop 07/16/19 at 13:28; Status DC Meropenem 500 mg/ Sodium Chloride 50 ml @ 100 mls/hr Q6HRS IV Last administered on 07/13/19at 06:00; Start 07/12/19 at 09:00; Stop 07/13/19 at 07:29; Status DC Potassium Phosphate 20 mmol/ Sodium Chloride 106.6667 ml @ 51.667 m... 1X ONCE IV Last administered on 07/12/19at 11:22; Start 07/12/19 at 10:15; Stop 07/12/19 at 12:18; Status DC Acetaminophen (Tylenol Supp) 650 mg PRN Q6HRS PRN FL MILD PAIN / TEMP Last administered on 07/12/19at 10:37; Start 07/12/19 at 10:30 Potassium Chloride/Water 100 ml @ 100 mls/hr Q1H IV Last administered on 07/12/19at 12:12; Start 07/12/19 at 11:00; Stop 07/12/19 at 12:59; Status DC Potassium Chloride 20 meq/ Bicarbonate Dialysis Soln w/ out KCl 5,010 ml @ 1,000 mls/hr Q5H1M IV Last administered on 07/13/19at 08:48; Start 07/12/19 at 12:00; Stop 07/13/19 at 13:03; Status DC Potassium Chloride 20 meq/ Bicarbonate Dialysis Soln w/ out KCl 5,010 ml @ 1,000 mls/hr Q5H1M IV Last administered on 07/17/19at 14:52; Start 07/12/19 at 11:30; Stop 07/17/19 at 19:59; Status DC Potassium Chloride 20 meq/ Bicarbonate Dialysis Soln w/ out KCl 5,010 ml @ 1,000 mls/hr Q5H1M IV Last administered on 07/17/19at 14:53; Start 07/12/19 at 11:30; Stop 07/17/19 at 19:59; Status DC Sodium Chloride 90 meq/Potassium Chloride 15 meq/ Potassium Phosphate 15 mmol/ Magnesium Sulfate 10 meq/Calcium Gluconate 15 meq/ Multivitamins 10 ml/Chromium/ Copper/Manganese/ Seleni/Zn 0.5 ml/ Total Parenteral Nutrition/Amino Acids/Dextrose/ Fat Emulsion Intravenous 1,400 ml @ 58.333 mls/ hr TPN CONT IV Last administered on 07/12/19at 22:17; Start 07/12/19 at 22:00; Stop 07/13/19 at 21:59; Status DC Cefepime HCl (Maxipime) 2 gm Q12HR IVP Last administered on 07/20/19at 08:30; Start 07/13/19 at 09:00 Daptomycin 500 mg/ Sodium Chloride 50 ml @ 100 mls/hr Q48H IV Last administered on 07/19/19at 09:14; Start 07/13/19 at 08:30 Lidocaine HCl (Buffered Lidocaine 1%) 3 ml 1X ONCE INJ Last administered on 07/13/19at 10:27; Start 07/13/19 at 10:30; Stop 07/13/19 at 10:31; Status DC Potassium Phosphate 20 mmol/ Sodium Chloride 106.6667 ml @ 51.667 m... 1X ONCE IV Last administered on 07/13/19at 12:51; Start 07/13/19 at 13:00; Stop 07/13/19 at 15:03; Status DC Sodium Chloride 90 meq/Potassium Chloride 15 meq/ Potassium Phosphate 18 mmol/ Magnesium Sulfate 8 meq/Calcium Gluconate 15 meq/ Multivitamins 10 ml/Chromium/ Copper/Manganese/ Seleni/Zn 0.5 ml/ Total Parenteral Nutrition/Amino Acids/Dextrose/ Fat Emulsion Intravenous 1,400 ml @ 58.333 mls/ hr TPN CONT IV Last administered on 07/13/19at 22:16; Start 07/13/19 at 22:00; Stop 07/14/19 at 21:59; Status DC Potassium Chloride 20 meq/ Bicarbonate Dialysis Soln w/ out KCl 5,010 ml @ 1,000 mls/hr Q5H1M IV Last administered on 07/17/19at 14:54; Start 07/13/19 at 16:00; Stop 07/17/19 at 19:59; Status DC Multi-Ingred Cream/Lotion/Oil/ Oint (Artificial Tears Eye Ointment) 1 ramu PRN Q1HR PRN OU DRY EYE Last administered on 07/18/19at 08:05; Start 07/13/19 at 17:30 Sodium Chloride 90 meq/Potassium Chloride 15 meq/ Potassium Phosphate 18 mmol/ Magnesium Sulfate 8 meq/Calcium Gluconate 15 meq/ Multivitamins 10 ml/Chromium/ Copper/Manganese/ Seleni/Zn 0.5 ml/ Total Parenteral Nutrition/Amino Acids/Dextrose/ Fat Emulsion Intravenous 1,400 ml @ 58.333 mls/ hr TPN CONT IV Last administered on 07/14/19at 22:00; Start 07/14/19 at 22:00; Stop 07/15/19 at 21:59; Status DC Albumin Human 500 ml @ 125 mls/hr 1X ONCE IV ; Start 07/14/19 at 14:15; Stop 07/14/19 at 18:14; Status DC Sodium Chloride 90 meq/Potassium Chloride 15 meq/ Potassium Phosphate 18 mmol/ Magnesium Sulfate 8 meq/Calcium Gluconate 15 meq/ Multivitamins 10 ml/Chromium/ Copper/Manganese/ Seleni/Zn 0.5 ml/ Insulin Human Regular 10 unit/ Total Parenteral Nutrition/Amino Acids/Dextrose/ Fat Emulsion Intravenous 1,400 ml @ 58.333 mls/ hr TPN CONT IV Last administered on 07/15/19at 21:43; Start 07/15/19 at 22:00; Stop 07/16/19 at 21:59; Status DC Lidocaine HCl (Buffered Lidocaine 1%) 3 ml STK-MED ONCE .ROUTE ; Start 07/13/19 at 10:00; Stop 07/15/19 at 13:57; Status DC Midazolam HCl 100 mg/Sodium Chloride 100 ml @ 7 mls/hr CONT PRN IV SEE PROTOCOL Last administered on 07/20/19at 13:57; Start 07/16/19 at 16:00 Sodium Chloride 90 meq/Potassium Chloride 15 meq/ Potassium Phosphate 18 mmol/ Magnesium Sulfate 8 meq/Calcium Gluconate 15 meq/ Multivitamins 10 ml/Chromium/ Copper/Manganese/ Seleni/Zn 0.5 ml/ Insulin Human Regular 15 unit/ Total Parenteral Nutrition/Amino Acids/Dextrose/ Fat Emulsion Intravenous 1,400 ml @ 58.333 mls/ hr TPN CONT IV Last administered on 07/16/19at 20:34; Start 07/16/19 at 22:00; Stop 07/17/19 at 21:59; Status DC Info (Icu Electrolyte Protocol) 1 ea CONT PRN PRN MC PER PROTOCOL; Start 07/17/19 at 13:15 Sodium Chloride 90 meq/Potassium Chloride 15 meq/ Potassium Phosphate 18 mmol/ Magnesium Sulfate 8 meq/Calcium Gluconate 15 meq/ Multivitamins 10 ml/Chromium/ Copper/Manganese/ Seleni/Zn 0.5 ml/ Insulin Human Regular 15 unit/ Total Parenteral Nutrition/Amino Acids/Dextrose/ Fat Emulsion Intravenous 1,400 ml @ 58.333 mls/ hr TPN CONT IV Last administered on 07/17/19at 22:05; Start 07/17/19 at 22:00; Stop 07/18/19 at 21:59; Status DC Potassium Chloride 15 meq/ Bicarbonate Dialysis Soln w/ out KCl 5,007.5 ml @ 1,000 mls/ hr Q5H1M IV Last administered on 07/20/19at 13:58; Start 07/17/19 at 20:00 Potassium Chloride 15 meq/ Bicarbonate Dialysis Soln w/ out KCl 5,007.5 ml @ 1,000 mls/ hr Q5H1M IV Last administered on 07/20/19at 13:58; Start 07/17/19 at 20:00 Potassium Chloride 15 meq/ Bicarbonate Dialysis Soln w/ out KCl 5,007.5 ml @ 1,000 mls/ hr Q5H1M IV Last administered on 07/20/19at 13:58; Start 07/17/19 at 20:00 Iohexol (Omnipaque 240 Mg/ml) 30 ml 1X ONCE PO Last administered on 07/18/19at 11:30; Start 07/18/19 at 11:30; Stop 07/18/19 at 11:33; Status DC Info (CONTRAST GIVEN -- Rx MONITORING) 1 each PRN DAILY PRN MC SEE COMMENTS; Start 07/18/19 at 11:45; Stop 07/20/19 at 11:44; Status DC Sodium Chloride 90 meq/Potassium Chloride 15 meq/ Potassium Phosphate 18 mmol/ Magnesium Sulfate 8 meq/Calcium Gluconate 15 meq/ Multivitamins 10 ml/Chromium/ Copper/Manganese/ Seleni/Zn 0.5 ml/ Insulin Human Regular 15 unit/ Total Parenteral Nutrition/Amino Acids/Dextrose/ Fat Emulsion Intravenous 1,400 ml @ 58.333 mls/ hr TPN CONT IV Last administered on 07/18/19at 21:47; Start 07/18/19 at 22:00; Stop 07/19/19 at 21:59; Status DC Sodium Chloride 90 meq/Potassium Chloride 15 meq/ Potassium Phosphate 18 mmol/ Magnesium Sulfate 8 meq/Calcium Gluconate 15 meq/ Multivitamins 10 ml/Chromium/ Copper/Manganese/ Seleni/Zn 0.5 ml/ Insulin Human Regular 20 unit/ Total Parenteral Nutrition/Amino Acids/Dextrose/ Fat Emulsion Intravenous 1,400 ml @ 58.333 mls/ hr TPN CONT IV Last administered on 07/19/19at 21:36; Start 07/19/19 at 22:00; Stop 07/20/19 at 21:59 Alteplase, Recombinant (Cathflo For Central Catheter Clearance) 1 mg 1X ONCE INT CAT Last administered on 07/19/19at 20:03; Start 07/19/19 at 19:30; Stop 07/19/19 at 19:46; Status DC Alteplase, Recombinant (Cathflo For Central Catheter Clearance) 1 mg 1X ONCE INT CAT Last administered on 07/19/19at 22:05; Start 07/19/19 at 22:00; Stop 07/19/19 at 22:01; Status DC Sodium Chloride 90 meq/Potassium Chloride 15 meq/ Potassium Phosphate 18 mmol/ Magnesium Sulfate 8 meq/Calcium Gluconate 15 meq/ Multivitamins 10 ml/Chromium/ Copper/Manganese/ Seleni/Zn 0.5 ml/ Insulin Human Regular 20 unit/ Total Paren teral Nutrition/Amino Acids/Dextrose/ Fat Emulsion Intravenous 1,400 ml @ 58.333 mls/ hr TPN CONT IV ; Start 07/20/19 at 22:00; Stop 07/21/19 at 21:59 Active Scripts Active Reported Bisoprolol Fumarate 5 Mg Tablet 10 Mg PO DAILY Vitals/I & O Vital Sign - Last 24 Hours 07/19/19 07/19/19 07/19/19 07/19/19 17:00 18:00 19:00 19:30 Pulse 104 111 105 Resp 25 25 25 B/P (MAP) 106/71 (83) 121/79 (93) 129/53 (78) Pulse Ox 100 99 100 O2 Delivery Ventilator Ventilator Ventilator Mechanical Ventilator 07/19/19 07/19/19 07/19/19 07/19/19 20:00 20:25 21:00 21:57 Temp 98.7 98.7 Pulse 105 110 Resp 25 25 B/P (MAP) 129/53 (78) 133/85 (101) Pulse Ox 100 100 95 99 O2 Delivery Ventilator Ventilator Ventilator Ventilator 07/19/19 07/19/19 07/19/19 07/19/19 22:00 23:00 23:03 23:22 Pulse 106 102 Resp 25 25 B/P (MAP) 114/61 (78) 111/56 (74) Pulse Ox 100 100 100 O2 Delivery Ventilator Ventilator Ventilator Ventilator 07/20/19 07/20/19 07/20/19 07/20/19 00:00 00:00 01:00 02:00 Temp 99.1 99.1 Pulse 108 102 102 Resp 25 25 25 B/P (MAP) 115/67 (83) 121/63 (82) 97/65 (76) Pulse Ox 100 100 100 O2 Delivery Ventilator Mechanical Ventilator Ventilator Ventilator 07/20/19 07/20/19 07/20/19 07/20/19 03:00 03:30 03:40 04:00 Temp 98.5 98.5 Pulse 100 101 Resp 25 25 B/P (MAP) 105/76 (86) 102/78 (86) Pulse Ox 100 100 100 O2 Delivery Ventilator Mechanical Ventilator Ventilator Ventilator 07/20/19 07/20/19 07/20/19 07/20/19 05:00 06:00 07:00 07:38 Pulse 104 109 107 Resp 25 25 25 B/P (MAP) 100/59 (73) 107/63 (78) 103/65 (78) Pulse Ox 100 100 100 O2 Delivery Ventilator Ventilator Ventilator Mechanical Ventilator 07/20/19 07/20/19 07/20/19 07/20/19 07:51 08:00 08:17 08:50 Temp 98.4 98.4 Pulse 108 Resp 25 B/P (MAP) 118/57 (77) Pulse Ox 100 100 100 100 O2 Delivery Ventilator Ventilator Ventilator Ventilator 07/20/19 07/20/19 07/20/19 07/20/19 09:00 10:00 11:00 11:35 Pulse 106 107 109 Resp 25 25 25 B/P (MAP) 93/67 (76) 122/69 (86) 124/57 (79) Pulse Ox 100 100 100 O2 Delivery Ventilator Ventilator Ventilator Mechanical Ventilator 07/20/19 07/20/19 07/20/19 07/20/19 12:00 12:35 13:00 14:00 Temp 100.1 100.1 Pulse 106 103 99 Resp 25 25 25 B/P (MAP) 104/63 (77) 98/58 (71) 103/65 (78) Pulse Ox 100 100 100 100 O2 Delivery Ventilator Ventilator Ventilator Ventilator 07/20/19 07/20/19 07/20/19 15:00 15:41 16:00 Temp 99.0 99.0 Pulse 110 110 Resp 25 25 B/P (MAP) 93/65 (74) 106/64 (78) Pulse Ox 100 100 O2 Delivery Ventilator Mechanical Ventilator Ventilator Intake and Output 07/19/19 07/19/19 07/20/19 15:00 23:00 07:00 Intake Total 475 ml 1575 ml 1228 ml Output Total 155 ml 245 ml 155 ml Balance 320 ml 1330 ml 1073 ml Hemodynamically unstable?: Yes Is patient in severe pain?: No Is NPO status required?: Yes NIELS MCGILL MD Jul 20, 2019 16:36
[2019-07-20] MEDS ORDERED: TOTAL PARENTERAL NUTRITION IV SCH ×11 (22:00)
[2019-07-20] MEDS ORDERED: AMINO ACID IV SCH ×11 (22:00)
[2019-07-20] MEDS ORDERED: DEXTROSE 70% IV SCH ×11 (22:00)
[2019-07-20] MEDS ORDERED: [UNRECOGNIZED DRUG - OTHER] IV SCH ×11 (22:00)
[2019-07-21] VITALS (25 sets, daily range): BP systolic 94–144; BP diastolic 49–85
[2019-07-21] MEDS: INSULIN LISPRO 300 UNITS/3 ML VIAL. SQ SCH ×4 (00:04→17:24)
[2019-07-21 00:14] LABS: CREATININE 1.2 mg/dL (0.6-1.0); GFR 47.7; POTASSIUM 3.8 mmol/L (3.5-5.1)
[2019-07-21] MEDS: POTASSIUM CHLORIDE 15 MEQ in DIALYSIS SOLUTION BGK 0/2.5 5,000 ML IV SCH ×17 (04:16→13:07)
--- NOTE | 2019-07-21 04:26 | NUR ---
CRRT stopped at 0000 hours due to dialysis catheter clotting. Order to restart in morning.
[2019-07-21 06:06] LABS: CREATININE 1.3 mg/dL (0.6-1.0); GFR 43.5; PHOSPHORUS 3.1 mg/dL (2.6-4.7); POTASSIUM 3.7 mmol/L (3.5-5.1)
--- NOTE | 2019-07-21 07:24 | RAD ---
PORTABLE CHEST 1V INDICATION: Respiratory failure. COMPARISON STUDY: 07/20/2019. FINDINGS: Life Support Devices: Stable endotracheal tube, enteric tube, right IJ dual-lumen catheter, left IJ central venous catheter. Lungs: Low lung volume. Stable diffuse hazy opacities. Pleura: Stable small bilateral pleural effusions. Heart and Mediastinum: Stable cardiomediastinal silhouette and great vessels. Bones and Soft Tissues: Stable regional skeleton and soft tissues. IMPRESSION: Stable small bilateral pleural effusions and diffuse hazy opacities. Electronically signed by: Bry Michel MD (07/21/2019 7:21 AM) [id number]
--- NOTE | 2019-07-21 08:14 | PDOC ---
PULMONARY PROGRESS NOTES Subjective Patient intubated on 07/10 , sedated Currently on assist control ventilation 450 tidal volume 8 of PEEP , 40%FIO2 fevers Vitals Vital Signs Date Time Temp Pulse Resp B/P (MAP) Pulse Ox O2 Delivery O2 Flow Rate FiO2 07/21/19 08:00 100.2 121 25 136/72 (93) 100 Ventilator 100.2 07/21/19 05:28 6.0 Comments intubated , sedated Lungs: Other (decrease bs) Abdomen: Other (distended) Extremities: Other (trace edema) Labs Laboratory Tests Test 07/19/19 12:00 07/19/19 17:30 07/19/19 17:40 07/20/19 00:10 Prothrombin Time 21.3 SEC (11.7-14.0) Prothromb Time International Ratio 1.9 (0.8-1.1) Sodium Level 138 mmol/L (136-145) 138 mmol/L (136-145) Potassium Level 3.9 mmol/L (3.5-5.1) 4.1 mmol/L (3.5-5.1) Chloride Level 103 mmol/L (98-107) 104 mmol/L (98-107) Carbon Dioxide Level 27 mmol/L (21-32) 28 mmol/L (21-32) Anion Gap 8 (6-14) 6 (6-14) Blood Urea Nitrogen 33 mg/dL (7-20) 33 mg/dL (7-20) Creatinine 1.2 mg/dL (0.6-1.0) 1.2 mg/dL (0.6-1.0) Estimated GFR (Cockcroft-Gault) 47.7 47.7 Glucose Level 192 mg/dL (70-99) 185 mg/dL (70-99) Calcium Level 8.0 mg/dL (8.5-10.1) 8.1 mg/dL (8.5-10.1) Phosphorus Level 2.7 mg/dL (2.6-4.7) 3.1 mg/dL (2.6-4.7) Magnesium Level 2.2 mg/dL (1.8-2.4) 2.3 mg/dL (1.8-2.4) White Blood Count 37.4 x10^3/uL (4.0-11.0) Red Blood Count 2.89 x10^6/uL (3.50-5.40) Hemoglobin 9.3 g/dL (12.0-15.5) Hematocrit 28.0 % (36.0-47.0) Mean Corpuscular Volume 97 fL (79-100) Mean Corpuscular Hemoglobin 32 pg (25-35) Mean Corpuscular Hemoglobin Concent 33 g/dL (31-37) Red Cell Distribution Width 17.1 % (11.5-14.5) Platelet Count 307 x10^3/uL (140-400) Neutrophils (%) (Auto) 86 % (31-73) Lymphocytes (%) (Auto) 6 % (24-48) Monocytes (%) (Auto) 5 % (0-9) Eosinophils (%) (Auto) 2 % (0-3) Basophils (%) (Auto) 1 % (0-3) Neutrophils # (Auto) 32.1 x10^3/uL (1.8-7.7) Lymphocytes # (Auto) 2.4 x10^3/uL (1.0-4.8) Monocytes # (Auto) 1.9 x10^3/uL (0.0-1.1) Eosinophils # (Auto) 0.8 x10^3/uL (0.0-0.7) Basophils # (Auto) 0.2 x10^3/uL (0.0-0.2) BUN/Creatinine Ratio 28 (6-20) Total Bilirubin 1.0 mg/dL (0.2-1.0) Aspartate Amino Transf (AST/SGOT) 50 U/L (15-37) Alanine Aminotransferase (ALT/SGPT) 21 U/L (14-59) Alkaline Phosphatase 128 U/L (46-116) Total Protein 5.3 g/dL (6.4-8.2) Albumin 2.5 g/dL (3.4-5.0) Albumin/Globulin Ratio 0.9 (1.0-1.7) Glucose (Fingerstick) 170 mg/dL (70-99) Test 07/20/19 00:15 07/20/19 05:30 07/20/19 05:37 07/20/19 08:00 Sodium Level 137 mmol/L (136-145) 138 mmol/L (136-145) Potassium Level 4.1 mmol/L (3.5-5.1) 4.0 mmol/L (3.5-5.1) Chloride Level 103 mmol/L (98-107) 104 mmol/L (98-107) Carbon Dioxide Level 28 mmol/L (21-32) 28 mmol/L (21-32) Anion Gap 6 (6-14) 6 (6-14) Blood Urea Nitrogen 32 mg/dL (7-20) 31 mg/dL (7-20) Creatinine 1.1 mg/dL (0.6-1.0) 1.1 mg/dL (0.6-1.0) Estimated GFR (Cockcroft-Gault) 52.8 52.8 Glucose Level 181 mg/dL (70-99) 177 mg/dL (70-99) Calcium Level 8.0 mg/dL (8.5-10.1) 8.2 mg/dL (8.5-10.1) Phosphorus Level 2.9 mg/dL (2.6-4.7) 2.9 mg/dL (2.6-4.7) Magnesium Level 2.1 mg/dL (1.8-2.4) 2.3 mg/dL (1.8-2.4) White Blood Count 30.1 x10^3/uL (4.0-11.0) Red Blood Count 2.81 x10^6/uL (3.50-5.40) Hemoglobin 9.1 g/dL (12.0-15.5) Hematocrit 27.5 % (36.0-47.0) Mean Corpuscular Volume 98 fL (79-100) Mean Corpuscular Hemoglobin 32 pg (25-35) Mean Corpuscular Hemoglobin Concent 33 g/dL (31-37) Red Cell Distribution Width 16.8 % (11.5-14.5) Platelet Count 281 x10^3/uL (140-400) Neutrophils (%) (Auto) 81 % (31-73) Lymphocytes (%) (Auto) 10 % (24-48) Monocytes (%) (Auto) 6 % (0-9) Eosinophils (%) (Auto) 2 % (0-3) Basophils (%) (Auto) 1 % (0-3) Neutrophils # (Auto) 24.4 x10^3/uL (1.8-7.7) Lymphocytes # (Auto) 3.0 x10^3/uL (1.0-4.8) Monocytes # (Auto) 1.7 x10^3/uL (0.0-1.1) Eosinophils # (Auto) 0.7 x10^3/uL (0.0-0.7) Basophils # (Auto) 0.2 x10^3/uL (0.0-0.2) BUN/Creatinine Ratio 28 (6-20) Total Bilirubin 1.0 mg/dL (0.2-1.0) Aspartate Amino Transf (AST/SGOT) 46 U/L (15-37) Alanine Aminotransferase (ALT/SGPT) 20 U/L (14-59) Alkaline Phosphatase 119 U/L (46-116) Total Protein 5.2 g/dL (6.4-8.2) Albumin 2.4 g/dL (3.4-5.0) Albumin/Globulin Ratio 0.9 (1.0-1.7) Glucose (Fingerstick) 182 mg/dL (70-99) O2 Saturation 95 % (92-99) Arterial Blood pH 7.34 (7.35-7.45) Arterial Blood pCO2 at Patient Temp 41 mmHg (35-46) Arterial Blood pO2 at Patient Temp 83 mmHg (75-108) Arterial Blood HCO3 22 mmol/L (21-28) Arterial Blood Base Excess -4 mmol/L (-3-3) FiO2 30% Test 07/20/19 11:29 07/20/19 11:30 07/20/19 16:00 07/21/19 00:01 Glucose (Fingerstick) 163 mg/dL (70-99) Sodium Level 137 mmol/L (136-145) 137 mmol/L (136-145) 138 mmol/L (136-145) Potassium Level 3.7 mmol/L (3.5-5.1) 3.9 mmol/L (3.5-5.1) 3.8 mmol/L (3.5-5.1) Chloride Level 104 mmol/L (98-107) 104 mmol/L (98-107) 105 mmol/L (98-107) Carbon Dioxide Level 29 mmol/L (21-32) 28 mmol/L (21-32) 27 mmol/L (21-32) Anion Gap 4 (6-14) 5 (6-14) 6 (6-14) Blood Urea Nitrogen 31 mg/dL (7-20) 30 mg/dL (7-20) 33 mg/dL (7-20) Creatinine 1.1 mg/dL (0.6-1.0) 1.1 mg/dL (0.6-1.0) 1.2 mg/dL (0.6-1.0) Estimated GFR (Cockcroft-Gault) 52.8 52.8 47.7 Glucose Level 165 mg/dL (70-99) 170 mg/dL (70-99) 173 mg/dL (70-99) Calcium Level 7.2 mg/dL (8.5-10.1) 8.2 mg/dL (8.5-10.1) 8.0 mg/dL (8.5-10.1) Phosphorus Level 2.9 mg/dL (2.6-4.7) 2.9 mg/dL (2.6-4.7) 3.2 mg/dL (2.6-4.7) Magnesium Level 2.0 mg/dL (1.8-2.4) 2.3 mg/dL (1.8-2.4) 2.0 mg/dL (1.8-2.4) White Blood Count 22.6 x10^3/uL (4.0-11.0) Red Blood Count 2.75 x10^6/uL (3.50-5.40) Hemoglobin 8.9 g/dL (12.0-15.5) Hematocrit 26.9 % (36.0-47.0) Mean Corpuscular Volume 98 fL (79-100) Mean Corpuscular Hemoglobin 32 pg (25-35) Mean Corpuscular Hemoglobin Concent 33 g/dL (31-37) Red Cell Distribution Width 17.1 % (11.5-14.5) Platelet Count 257 x10^3/uL (140-400) Neutrophils (%) (Auto) 82 % (31-73) Lymphocytes (%) (Auto) 10 % (24-48) Monocytes (%) (Auto) 6 % (0-9) Eosinophils (%) (Auto) 2 % (0-3) Basophils (%) (Auto) 1 % (0-3) Neutrophils # (Auto) 18.5 x10^3/uL (1.8-7.7) Lymphocytes # (Auto) 2.2 x10^3/uL (1.0-4.8) Monocytes # (Auto) 1.3 x10^3/uL (0.0-1.1) Eosinophils # (Auto) 0.5 x10^3/uL (0.0-0.7) Basophils # (Auto) 0.1 x10^3/uL (0.0-0.2) Test 07/21/19 05:30 07/21/19 05:48 Sodium Level 138 mmol/L (136-145) Potassium Level 3.7 mmol/L (3.5-5.1) Chloride Level 105 mmol/L (98-107) Carbon Dioxide Level 25 mmol/L (21-32) Anion Gap 8 (6-14) Blood Urea Nitrogen 38 mg/dL (7-20) Creatinine 1.3 mg/dL (0.6-1.0) Estimated GFR (Cockcroft-Gault) 43.5 Glucose Level 180 mg/dL (70-99) Calcium Level 8.0 mg/dL (8.5-10.1) Phosphorus Level 3.1 mg/dL (2.6-4.7) Magnesium Level 2.0 mg/dL (1.8-2.4) Glucose (Fingerstick) 168 mg/dL (70-99) Laboratory Tests Test 07/20/19 11:29 07/20/19 11:30 07/20/19 16:00 07/21/19 00:01 Glucose (Fingerstick) 163 mg/dL (70-99) Sodium Level 137 mmol/L (136-145) 137 mmol/L (136-145) 138 mmol/L (136-145) Potassium Level 3.7 mmol/L (3.5-5.1) 3.9 mmol/L (3.5-5.1) 3.8 mmol/L (3.5-5.1) Chloride Level 104 mmol/L (98-107) 104 mmol/L (98-107) 105 mmol/L (98-107) Carbon Dioxide Level 29 mmol/L (21-32) 28 mmol/L (21-32) 27 mmol/L (21-32) Anion Gap 4 (6-14) 5 (6-14) 6 (6-14) Blood Urea Nitrogen 31 mg/dL (7-20) 30 mg/dL (7-20) 33 mg/dL (7-20) Creatinine 1.1 mg/dL (0.6-1.0) 1.1 mg/dL (0.6-1.0) 1.2 mg/dL (0.6-1.0) Estimated GFR (Cockcroft-Gault) 52.8 52.8 47.7 Glucose Level 165 mg/dL (70-99) 170 mg/dL (70-99) 173 mg/dL (70-99) Calcium Level 7.2 mg/dL (8.5-10.1) 8.2 mg/dL (8.5-10.1) 8.0 mg/dL (8.5-10.1) Phosphorus Level 2.9 mg/dL (2.6-4.7) 2.9 mg/dL (2.6-4.7) 3.2 mg/dL (2.6-4.7) Magnesium Level 2.0 mg/dL (1.8-2.4) 2.3 mg/dL (1.8-2.4) 2.0 mg/dL (1.8-2.4) White Blood Count 22.6 x10^3/uL (4.0-11.0) Red Blood Count 2.75 x10^6/uL (3.50-5.40) Hemoglobin 8.9 g/dL (12.0-15.5) Hematocrit 26.9 % (36.0-47.0) Mean Corpuscular Volume 98 fL (79-100) Mean Corpuscular Hemoglobin 32 pg (25-35) Mean Corpuscular Hemoglobin Concent 33 g/dL (31-37) Red Cell Distribution Width 17.1 % (11.5-14.5) Platelet Count 257 x10^3/uL (140-400) Neutrophils (%) (Auto) 82 % (31-73) Lymphocytes (%) (Auto) 10 % (24-48) Monocytes (%) (Auto) 6 % (0-9) Eosinophils (%) (Auto) 2 % (0-3) Basophils (%) (Auto) 1 % (0-3) Neutrophils # (Auto) 18.5 x10^3/uL (1.8-7.7) Lymphocytes # (Auto) 2.2 x10^3/uL (1.0-4.8) Monocytes # (Auto) 1.3 x10^3/uL (0.0-1.1) Eosinophils # (Auto) 0.5 x10^3/uL (0.0-0.7) Basophils # (Auto) 0.1 x10^3/uL (0.0-0.2) Test 07/21/19 05:30 07/21/19 05:48 Sodium Level 138 mmol/L (136-145) Potassium Level 3.7 mmol/L (3.5-5.1) Chloride Level 105 mmol/L (98-107) Carbon Dioxide Level 25 mmol/L (21-32) Anion Gap 8 (6-14) Blood Urea Nitrogen 38 mg/dL (7-20) Creatinine 1.3 mg/dL (0.6-1.0) Estimated GFR (Cockcroft-Gault) 43.5 Glucose Level 180 mg/dL (70-99) Calcium Level 8.0 mg/dL (8.5-10.1) Phosphorus Level 3.1 mg/dL (2.6-4.7) Magnesium Level 2.0 mg/dL (1.8-2.4) Glucose (Fingerstick) 168 mg/dL (70-99) Medications Active Scripts Medications Dose Route/Sig Max Daily Dose Days Date Category Bisoprolol Fumarate 5 Mg Tablet 10 Mg PO DAILY 07/04/19 Reported Comments Chest x-ray reviewed 07/20, poor ins film, basal effusions and volume loss CT chest 07/17 reviewed Impression . IMPRESSION: 1. Acute hypoxemic respiratory failure secondary to ARDS due to acute pancreatitis, septic shock, abdominal distention, and pneumonia.and pleural effusions. Pleural effusions secondary to abdominal process and/or general volume overload from renal failure. 2. Gallstone pancreatitis. WITH NECROSIS 3. Severe metabolic acidosis.stable 4. Acute kidney injury. ON CRRT 5. Acute gallstone pancreatitis. 6. Hypoalbuminemia. 7. Hypocalcemia. 8. Leukocytosis 9. Chronic anemia 10. Covid 19 testing negative 11. Acute /chronic anemia suspected hemorrhagic fluid in pelvis Plan . AC mode, no change in current FIO2/ PEEP wean versed slowly, add Precedex if needed Not ready for trial, still fevers Cont AC mode , 40 FIO2/ PEEP. Transfuse prn, check H/H today Not a surgical candidate per surgery supportive care CRRT Antibiotics per ID, may need lines changed Follow nephrology input Nutritional support with TPN Prognosis is guarded d/w RN/RT no intervention for effusions, increase UF with HD . d/w DR Zarco cct 30 min VINAYAK LANDRUM MD Jul 21, 2019 08:14
[2019-07-21] MEDS ORDERED: FUROSEMIDE 20 MG/2 ML VIAL. IVP ONE (08:15)
[2019-07-21] MEDS ORDERED: IV NORMAL SALINE 500ML BAG 500 ML IV PRN (08:15)
[2019-07-21] MEDS ORDERED: ATROPINE 0.5 MG/5 ML DISP.SYRINGE. IV PRN (08:15)
--- NOTE | 2019-07-21 08:25 | PDOC ---
Infectious Disease Note Subjective Subjective intubated sedated ROS ROS no n/v/d/ Vital Sign Vital Signs Vital Signs Date Time Temp Pulse Resp B/P (MAP) Pulse Ox O2 Delivery O2 Flow Rate FiO2 07/21/19 08:00 100.2 121 25 136/72 (93) 100 Ventilator 100.2 07/21/19 05:28 6.0 Physical Exam PHYSICAL EXAM GENERAL: Orally intubated/sedated - generalizd anasarca HEENT: Mild icterus, pupils equal, ETT, NGT NECK: Supple. LUNGS: Decreased breath sounds at the bases. HEART: S1, S2, regular ABDOMEN: Distended, hypoactive BS, Rectal tube in place : Lind EXTREMITIES: Generalized edema, no cyanosis - some mottling, Rooke boots bilaterally DERMATOLOGIC: Warm and dry. No generalized rash. CENTRAL NERVOUS SYSTEM: Sedated RIJ Temp HDC, RUE-PICC & LIJ - clean Labs Lab Laboratory Tests Test 07/20/19 11:29 07/20/19 11:30 07/20/19 16:00 07/21/19 00:01 Glucose (Fingerstick) 163 mg/dL (70-99) Sodium Level 137 mmol/L (136-145) 137 mmol/L (136-145) 138 mmol/L (136-145) Potassium Level 3.7 mmol/L (3.5-5.1) 3.9 mmol/L (3.5-5.1) 3.8 mmol/L (3.5-5.1) Chloride Level 104 mmol/L (98-107) 104 mmol/L (98-107) 105 mmol/L (98-107) Carbon Dioxide Level 29 mmol/L (21-32) 28 mmol/L (21-32) 27 mmol/L (21-32) Anion Gap 4 (6-14) 5 (6-14) 6 (6-14) Blood Urea Nitrogen 31 mg/dL (7-20) 30 mg/dL (7-20) 33 mg/dL (7-20) Creatinine 1.1 mg/dL (0.6-1.0) 1.1 mg/dL (0.6-1.0) 1.2 mg/dL (0.6-1.0) Estimated GFR (Cockcroft-Gault) 52.8 52.8 47.7 Glucose Level 165 mg/dL (70-99) 170 mg/dL (70-99) 173 mg/dL (70-99) Calcium Level 7.2 mg/dL (8.5-10.1) 8.2 mg/dL (8.5-10.1) 8.0 mg/dL (8.5-10.1) Phosphorus Level 2.9 mg/dL (2.6-4.7) 2.9 mg/dL (2.6-4.7) 3.2 mg/dL (2.6-4.7) Magnesium Level 2.0 mg/dL (1.8-2.4) 2.3 mg/dL (1.8-2.4) 2.0 mg/dL (1.8-2.4) White Blood Count 22.6 x10^3/uL (4.0-11.0) Red Blood Count 2.75 x10^6/uL (3.50-5.40) Hemoglobin 8.9 g/dL (12.0-15.5) Hematocrit 26.9 % (36.0-47.0) Mean Corpuscular Volume 98 fL (79-100) Mean Corpuscular Hemoglobin 32 pg (25-35) Mean Corpuscular Hemoglobin Concent 33 g/dL (31-37) Red Cell Distribution Width 17.1 % (11.5-14.5) Platelet Count 257 x10^3/uL (140-400) Neutrophils (%) (Auto) 82 % (31-73) Lymphocytes (%) (Auto) 10 % (24-48) Monocytes (%) (Auto) 6 % (0-9) Eosinophils (%) (Auto) 2 % (0-3) Basophils (%) (Auto) 1 % (0-3) Neutrophils # (Auto) 18.5 x10^3/uL (1.8-7.7) Lymphocytes # (Auto) 2.2 x10^3/uL (1.0-4.8) Monocytes # (Auto) 1.3 x10^3/uL (0.0-1.1) Eosinophils # (Auto) 0.5 x10^3/uL (0.0-0.7) Basophils # (Auto) 0.1 x10^3/uL (0.0-0.2) Test 07/21/19 05:30 07/21/19 05:48 Sodium Level 138 mmol/L (136-145) Potassium Level 3.7 mmol/L (3.5-5.1) Chloride Level 105 mmol/L (98-107) Carbon Dioxide Level 25 mmol/L (21-32) Anion Gap 8 (6-14) Blood Urea Nitrogen 38 mg/dL (7-20) Creatinine 1.3 mg/dL (0.6-1.0) Estimated GFR (Cockcroft-Gault) 43.5 Glucose Level 180 mg/dL (70-99) Calcium Level 8.0 mg/dL (8.5-10.1) Phosphorus Level 3.1 mg/dL (2.6-4.7) Magnesium Level 2.0 mg/dL (1.8-2.4) Glucose (Fingerstick) 168 mg/dL (70-99) Micro Microbiology 07/12/19 Blood Culture - Final, Complete NO GROWTH AFTER 5 DAYS Objective Assessment Leukocytosis - - ? reactive - trouble with CRRT/S/p PRBCs ? intra-abdominal Fever - better - Flu neg antigen 07/13 ? reactive with pancreatitis vs ID - C- diff neg. S/p HD cath change with malfunction 07/12 - cults 07/11 neg Lung opacities, COVID-19 neg Hypotension Acute pancreatitis, early developing necrosis -U/S 07/13 reviewed JUANA,Hyperkalemia, Metabolic acidosis on CRRT - s/p RIJ temporary dialysis catheter replacement, 07/12 Anasarca - worse Acute hypoxic resp failure, intubated ? developing peripheral ischemia - better Cholelithiasis Anemia - S/p PRBC 07/13 Hypocalcemia Prediabetes HTN Plan Plan of Care Continue Dapto/cefepime (07/12), Flagyl and micafungin (07/10) -Previously on Merrem, Zyvox F/u Blood cults 07/11 so far neg No surgical plans at this time Maintain aspiration precautions Airborne isolation d/c'd. COVID-19 neg Repeat CBC need ct chest, abd and pelvis,,, noted d/w GI D/w nursing Critically ill KIMMY JONES MD Jul 21, 2019 08:25
[2019-07-21] MEDS: PANTOPRAZOLE IV PUSH 40 MG VIAL. IVP SCH (08:29)
[2019-07-21] MEDS: DAPTOmycin (GENERIC) IVPB 500 MG in IV NORMAL SALINE 50ML 50 ML IV SCH (08:29)
[2019-07-21] MEDS: DEXMEDETOMIDINE 400 MCG in IV NORMAL SALINE 100ML 96 ML IV PRN ×3 (08:36→22:44)
[2019-07-21] MEDS ORDERED: LIDOCAINE WITH 8.4% SOD BICARB 3 ML DISP.SYRIN. ONE (08:39)
--- NOTE | 2019-07-21 08:56 | NUR ---
Dr. Hamilton called for update on patient, received the order to start precedex and wean off versed and try 20 mg IV lasix one time if cleared by Dr. Zarco. fish and wildlife biologist then called unit to check on patient, notified of stopping CRRT last night due to access problems. fish and wildlife biologist spoke with Dr. Zarco regarding access, received the order to replace TDC, will attempt to hold off on CRRT today, and go ahead and give the 20 mg IV lasix. Reached out to Marce, daughter, to sign consent. Will continue to monitor.
[2019-07-21] MEDS ORDERED: LIDOCAINE WITH 8.4% SOD BICARB 3 ML DISP.SYRIN. INJ ONE (09:00)
[2019-07-21] MEDS: MICAFUNGIN 100 MG in IV DEXTROSE 5% 100ML 100 ML IV SCH (09:11)
[2019-07-21] MEDS: CEFEPIME HCL IV Push 2 GM VIAL. IVP SCH ×2 (09:11→21:25)
--- NOTE | 2019-07-21 09:20 | PDOC ---
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 PLANNING CONSULTANT 07/21/19 0920: SURGICAL PROGRESS NOTE Subjective d/w nursing dialysis cath replaced, hold CRRT today-labs in AM Vital Signs Vital Signs Date Time Temp Pulse Resp B/P (MAP) Pulse Ox O2 Delivery O2 Flow Rate FiO2 07/21/19 09:00 94 25 144/85 (104) 100 Ventilator 07/21/19 08:00 100.2 100.2 07/21/19 05:28 6.0 I&O Intake and Output 07/21/19 07:00 Intake Total 2370 ml Output Total 855 ml Balance 1515 ml IV Total 2370 ml Output Urine Total 555 ml Stool Total 150 ml Gastric Drainage Total 150 ml PATIENT HAS A ROSARIO: Yes General: Other (sedated ) Abdomen: Other (firm) Labs Laboratory Tests Test 07/19/19 12:00 07/19/19 17:30 07/19/19 17:40 07/20/19 00:10 Prothrombin Time 21.3 SEC (11.7-14.0) Prothromb Time International Ratio 1.9 (0.8-1.1) Sodium Level 138 mmol/L (136-145) 138 mmol/L (136-145) Potassium Level 3.9 mmol/L (3.5-5.1) 4.1 mmol/L (3.5-5.1) Chloride Level 103 mmol/L (98-107) 104 mmol/L (98-107) Carbon Dioxide Level 27 mmol/L (21-32) 28 mmol/L (21-32) Anion Gap 8 (6-14) 6 (6-14) Blood Urea Nitrogen 33 mg/dL (7-20) 33 mg/dL (7-20) Creatinine 1.2 mg/dL (0.6-1.0) 1.2 mg/dL (0.6-1.0) Estimated GFR (Cockcroft-Gault) 47.7 47.7 Glucose Level 192 mg/dL (70-99) 185 mg/dL (70-99) Calcium Level 8.0 mg/dL (8.5-10.1) 8.1 mg/dL (8.5-10.1) Phosphorus Level 2.7 mg/dL (2.6-4.7) 3.1 mg/dL (2.6-4.7) Magnesium Level 2.2 mg/dL (1.8-2.4) 2.3 mg/dL (1.8-2.4) White Blood Count 37.4 x10^3/uL (4.0-11.0) Red Blood Count 2.89 x10^6/uL (3.50-5.40) Hemoglobin 9.3 g/dL (12.0-15.5) Hematocrit 28.0 % (36.0-47.0) Mean Corpuscular Volume 97 fL (79-100) Mean Corpuscular Hemoglobin 32 pg (25-35) Mean Corpuscular Hemoglobin Concent 33 g/dL (31-37) Red Cell Distribution Width 17.1 % (11.5-14.5) Platelet Count 307 x10^3/uL (140-400) Neutrophils (%) (Auto) 86 % (31-73) Lymphocytes (%) (Auto) 6 % (24-48) Monocytes (%) (Auto) 5 % (0-9) Eosinophils (%) (Auto) 2 % (0-3) Basophils (%) (Auto) 1 % (0-3) Neutrophils # (Auto) 32.1 x10^3/uL (1.8-7.7) Lymphocytes # (Auto) 2.4 x10^3/uL (1.0-4.8) Monocytes # (Auto) 1.9 x10^3/uL (0.0-1.1) Eosinophils # (Auto) 0.8 x10^3/uL (0.0-0.7) Basophils # (Auto) 0.2 x10^3/uL (0.0-0.2) BUN/Creatinine Ratio 28 (6-20) Total Bilirubin 1.0 mg/dL (0.2-1.0) Aspartate Amino Transf (AST/SGOT) 50 U/L (15-37) Alanine Aminotransferase (ALT/SGPT) 21 U/L (14-59) Alkaline Phosphatase 128 U/L (46-116) Total Protein 5.3 g/dL (6.4-8.2) Albumin 2.5 g/dL (3.4-5.0) Albumin/Globulin Ratio 0.9 (1.0-1.7) Glucose (Fingerstick) 170 mg/dL (70-99) Test 07/20/19 00:15 07/20/19 05:30 07/20/19 05:37 07/20/19 08:00 Sodium Level 137 mmol/L (136-145) 138 mmol/L (136-145) Potassium Level 4.1 mmol/L (3.5-5.1) 4.0 mmol/L (3.5-5.1) Chloride Level 103 mmol/L (98-107) 104 mmol/L (98-107) Carbon Dioxide Level 28 mmol/L (21-32) 28 mmol/L (21-32) Anion Gap 6 (6-14) 6 (6-14) Blood Urea Nitrogen 32 mg/dL (7-20) 31 mg/dL (7-20) Creatinine 1.1 mg/dL (0.6-1.0) 1.1 mg/dL (0.6-1.0) Estimated GFR (Cockcroft-Gault) 52.8 52.8 Glucose Level 181 mg/dL (70-99) 177 mg/dL (70-99) Calcium Level 8.0 mg/dL (8.5-10.1) 8.2 mg/dL (8.5-10.1) Phosphorus Level 2.9 mg/dL (2.6-4.7) 2.9 mg/dL (2.6-4.7) Magnesium Level 2.1 mg/dL (1.8-2.4) 2.3 mg/dL (1.8-2.4) White Blood Count 30.1 x10^3/uL (4.0-11.0) Red Blood Count 2.81 x10^6/uL (3.50-5.40) Hemoglobin 9.1 g/dL (12.0-15.5) Hematocrit 27.5 % (36.0-47.0) Mean Corpuscular Volume 98 fL (79-100) Mean Corpuscular Hemoglobin 32 pg (25-35) Mean Corpuscular Hemoglobin Concent 33 g/dL (31-37) Red Cell Distribution Width 16.8 % (11.5-14.5) Platelet Count 281 x10^3/uL (140-400) Neutrophils (%) (Auto) 81 % (31-73) Lymphocytes (%) (Auto) 10 % (24-48) Monocytes (%) (Auto) 6 % (0-9) Eosinophils (%) (Auto) 2 % (0-3) Basophils (%) (Auto) 1 % (0-3) Neutrophils # (Auto) 24.4 x10^3/uL (1.8-7.7) Lymphocytes # (Auto) 3.0 x10^3/uL (1.0-4.8) Monocytes # (Auto) 1.7 x10^3/uL (0.0-1.1) Eosinophils # (Auto) 0.7 x10^3/uL (0.0-0.7) Basophils # (Auto) 0.2 x10^3/uL (0.0-0.2) BUN/Creatinine Ratio 28 (6-20) Total Bilirubin 1.0 mg/dL (0.2-1.0) Aspartate Amino Transf (AST/SGOT) 46 U/L (15-37) Alanine Aminotransferase (ALT/SGPT) 20 U/L (14-59) Alkaline Phosphatase 119 U/L (46-116) Total Protein 5.2 g/dL (6.4-8.2) Albumin 2.4 g/dL (3.4-5.0) Albumin/Globulin Ratio 0.9 (1.0-1.7) Glucose (Fingerstick) 182 mg/dL (70-99) O2 Saturation 95 % (92-99) Arterial Blood pH 7.34 (7.35-7.45) Arterial Blood pCO2 at Patient Temp 41 mmHg (35-46) Arterial Blood pO2 at Patient Temp 83 mmHg (75-108) Arterial Blood HCO3 22 mmol/L (21-28) Arterial Blood Base Excess -4 mmol/L (-3-3) FiO2 30% Test 07/20/19 11:29 07/20/19 11:30 07/20/19 16:00 07/21/19 00:01 Glucose (Fingerstick) 163 mg/dL (70-99) Sodium Level 137 mmol/L (136-145) 137 mmol/L (136-145) 138 mmol/L (136-145) Potassium Level 3.7 mmol/L (3.5-5.1) 3.9 mmol/L (3.5-5.1) 3.8 mmol/L (3.5-5.1) Chloride Level 104 mmol/L (98-107) 104 mmol/L (98-107) 105 mmol/L (98-107) Carbon Dioxide Level 29 mmol/L (21-32) 28 mmol/L (21-32) 27 mmol/L (21-32) Anion Gap 4 (6-14) 5 (6-14) 6 (6-14) Blood Urea Nitrogen 31 mg/dL (7-20) 30 mg/dL (7-20) 33 mg/dL (7-20) Creatinine 1.1 mg/dL (0.6-1.0) 1.1 mg/dL (0.6-1.0) 1.2 mg/dL (0.6-1.0) Estimated GFR (Cockcroft-Gault) 52.8 52.8 47.7 Glucose Level 165 mg/dL (70-99) 170 mg/dL (70-99) 173 mg/dL (70-99) Calcium Level 7.2 mg/dL (8.5-10.1) 8.2 mg/dL (8.5-10.1) 8.0 mg/dL (8.5-10.1) Phosphorus Level 2.9 mg/dL (2.6-4.7) 2.9 mg/dL (2.6-4.7) 3.2 mg/dL (2.6-4.7) Magnesium Level 2.0 mg/dL (1.8-2.4) 2.3 mg/dL (1.8-2.4) 2.0 mg/dL (1.8-2.4) White Blood Count 22.6 x10^3/uL (4.0-11.0) Red Blood Count 2.75 x10^6/uL (3.50-5.40) Hemoglobin 8.9 g/dL (12.0-15.5) Hematocrit 26.9 % (36.0-47.0) Mean Corpuscular Volume 98 fL (79-100) Mean Corpuscular Hemoglobin 32 pg (25-35) Mean Corpuscular Hemoglobin Concent 33 g/dL (31-37) Red Cell Distribution Width 17.1 % (11.5-14.5) Platelet Count 257 x10^3/uL (140-400) Neutrophils (%) (Auto) 82 % (31-73) Lymphocytes (%) (Auto) 10 % (24-48) Monocytes (%) (Auto) 6 % (0-9) Eosinophils (%) (Auto) 2 % (0-3) Basophils (%) (Auto) 1 % (0-3) Neutrophils # (Auto) 18.5 x10^3/uL (1.8-7.7) Lymphocytes # (Auto) 2.2 x10^3/uL (1.0-4.8) Monocytes # (Auto) 1.3 x10^3/uL (0.0-1.1) Eosinophils # (Auto) 0.5 x10^3/uL (0.0-0.7) Basophils # (Auto) 0.1 x10^3/uL (0.0-0.2) Test 07/21/19 05:30 07/21/19 05:48 Sodium Level 138 mmol/L (136-145) Potassium Level 3.7 mmol/L (3.5-5.1) Chloride Level 105 mmol/L (98-107) Carbon Dioxide Level 25 mmol/L (21-32) Anion Gap 8 (6-14) Blood Urea Nitrogen 38 mg/dL (7-20) Creatinine 1.3 mg/dL (0.6-1.0) Estimated GFR (Cockcroft-Gault) 43.5 Glucose Level 180 mg/dL (70-99) Calcium Level 8.0 mg/dL (8.5-10.1) Phosphorus Level 3.1 mg/dL (2.6-4.7) Magnesium Level 2.0 mg/dL (1.8-2.4) Glucose (Fingerstick) 168 mg/dL (70-99) Laboratory Tests Test 07/20/19 11:29 07/20/19 11:30 07/20/19 16:00 07/21/19 00:01 Glucose (Fingerstick) 163 mg/dL (70-99) Sodium Level 137 mmol/L (136-145) 137 mmol/L (136-145) 138 mmol/L (136-145) Potassium Level 3.7 mmol/L (3.5-5.1) 3.9 mmol/L (3.5-5.1) 3.8 mmol/L (3.5-5.1) Chloride Level 104 mmol/L (98-107) 104 mmol/L (98-107) 105 mmol/L (98-107) Carbon Dioxide Level 29 mmol/L (21-32) 28 mmol/L (21-32) 27 mmol/L (21-32) Anion Gap 4 (6-14) 5 (6-14) 6 (6-14) Blood Urea Nitrogen 31 mg/dL (7-20) 30 mg/dL (7-20) 33 mg/dL (7-20) Creatinine 1.1 mg/dL (0.6-1.0) 1.1 mg/dL (0.6-1.0) 1.2 mg/dL (0.6-1.0) Estimated GFR (Cockcroft-Gault) 52.8 52.8 47.7 Glucose Level 165 mg/dL (70-99) 170 mg/dL (70-99) 173 mg/dL (70-99) Calcium Level 7.2 mg/dL (8.5-10.1) 8.2 mg/dL (8.5-10.1) 8.0 mg/dL (8.5-10.1) Phosphorus Level 2.9 mg/dL (2.6-4.7) 2.9 mg/dL (2.6-4.7) 3.2 mg/dL (2.6-4.7) Magnesium Level 2.0 mg/dL (1.8-2.4) 2.3 mg/dL (1.8-2.4) 2.0 mg/dL (1.8-2.4) White Blood Count 22.6 x10^3/uL (4.0-11.0) Red Blood Count 2.75 x10^6/uL (3.50-5.40) Hemoglobin 8.9 g/dL (12.0-15.5) Hematocrit 26.9 % (36.0-47.0) Mean Corpuscular Volume 98 fL (79-100) Mean Corpuscular Hemoglobin 32 pg (25-35) Mean Corpuscular Hemoglobin Concent 33 g/dL (31-37) Red Cell Distribution Width 17.1 % (11.5-14.5) Platelet Count 257 x10^3/uL (140-400) Neutrophils (%) (Auto) 82 % (31-73) Lymphocytes (%) (Auto) 10 % (24-48) Monocytes (%) (Auto) 6 % (0-9) Eosinophils (%) (Auto) 2 % (0-3) Basophils (%) (Auto) 1 % (0-3) Neutrophils # (Auto) 18.5 x10^3/uL (1.8-7.7) Lymphocytes # (Auto) 2.2 x10^3/uL (1.0-4.8) Monocytes # (Auto) 1.3 x10^3/uL (0.0-1.1) Eosinophils # (Auto) 0.5 x10^3/uL (0.0-0.7) Basophils # (Auto) 0.1 x10^3/uL (0.0-0.2) Test 07/21/19 05:30 07/21/19 05:48 Sodium Level 138 mmol/L (136-145) Potassium Level 3.7 mmol/L (3.5-5.1) Chloride Level 105 mmol/L (98-107) Carbon Dioxide Level 25 mmol/L (21-32) Anion Gap 8 (6-14) Blood Urea Nitrogen 38 mg/dL (7-20) Creatinine 1.3 mg/dL (0.6-1.0) Estimated GFR (Cockcroft-Gault) 43.5 Glucose Level 180 mg/dL (70-99) Calcium Level 8.0 mg/dL (8.5-10.1) Phosphorus Level 3.1 mg/dL (2.6-4.7) Magnesium Level 2.0 mg/dL (1.8-2.4) Glucose (Fingerstick) 168 mg/dL (70-99) Problem List Problems Medical Problems: (1) Acute pancreatitis Status: Acute (2) Cholelithiasis Status: Acute Assessment/Plan severe pancreatitis possible trach 07/24 DAVON SIMMS MD 07/21/19 1511: SURGICAL PROGRESS NOTE Assessment/Plan Pt seen and examined. Agree with MsMary Keith's note Pt appears relatively stable abd soft cont supportive care KEITHLISANDRO Danielle PLANNING CONSULTANT Jul 21, 2019 09:20 DAVON SIMMS MD Jul 21, 2019 15:11
--- NOTE | 2019-07-21 09:37 | RAD ---
CHEST AP ONLY History: Dialysis catheter replacement. Respiratory failure. Comparison: July 21, 2019 Findings: Low lung volumes. Diffuse interstitial and alveolar opacities, unchanged. Bilateral layering pleural effusions, unchanged. Right IJ central line with tip projecting over the right atrium. Stable left-sided central line and right PICC. Stable endotracheal tube and enteric tube. Unchanged heart size. No pneumothorax. Impression: 1. Diffuse interstitial and alveolar opacities, unchanged. 2. Bilateral layering pleural effusions, unchanged. 3. Right IJ central line with tip projecting over the right atrium. Electronically signed by: Sukhdev Sadler DO (07/21/2019 9:34 AM) [id number]
--- NOTE | 2019-07-21 10:09 | PDOC ---
Objective: Objective: D/w nurse - thick bilious output from OG and from mouth, some discussion re: tracheostomy. Vital Signs: Vital Signs Date Time Temp Pulse Resp B/P (MAP) Pulse Ox O2 Delivery O2 Flow Rate FiO2 07/21/19 09:00 94 25 144/85 (104) 100 Ventilator 07/21/19 08:00 100.2 100.2 07/21/19 05:28 6.0 Labs: Laboratory Tests Test 07/20/19 11:29 07/20/19 11:30 07/20/19 16:00 07/21/19 00:01 Glucose (Fingerstick) 163 mg/dL Sodium Level 137 mmol/L 137 mmol/L 138 mmol/L Potassium Level 3.7 mmol/L 3.9 mmol/L 3.8 mmol/L Chloride Level 104 mmol/L 104 mmol/L 105 mmol/L Carbon Dioxide Level 29 mmol/L 28 mmol/L 27 mmol/L Anion Gap 4 5 6 Blood Urea Nitrogen 31 mg/dL 30 mg/dL 33 mg/dL Creatinine 1.1 mg/dL 1.1 mg/dL 1.2 mg/dL Estimated GFR (Cockcroft-Gault) 52.8 52.8 47.7 Glucose Level 165 mg/dL 170 mg/dL 173 mg/dL Calcium Level 7.2 mg/dL 8.2 mg/dL 8.0 mg/dL Phosphorus Level 2.9 mg/dL 2.9 mg/dL 3.2 mg/dL Magnesium Level 2.0 mg/dL 2.3 mg/dL 2.0 mg/dL White Blood Count 22.6 x10^3/uL Red Blood Count 2.75 x10^6/uL Hemoglobin 8.9 g/dL Hematocrit 26.9 % Mean Corpuscular Volume 98 fL Mean Corpuscular Hemoglobin 32 pg Mean Corpuscular Hemoglobin Concent 33 g/dL Red Cell Distribution Width 17.1 % Platelet Count 257 x10^3/uL Neutrophils (%) (Auto) 82 % Lymphocytes (%) (Auto) 10 % Monocytes (%) (Auto) 6 % Eosinophils (%) (Auto) 2 % Basophils (%) (Auto) 1 % Neutrophils # (Auto) 18.5 x10^3/uL Lymphocytes # (Auto) 2.2 x10^3/uL Monocytes # (Auto) 1.3 x10^3/uL Eosinophils # (Auto) 0.5 x10^3/uL Basophils # (Auto) 0.1 x10^3/uL Test 07/21/19 05:30 07/21/19 05:48 Sodium Level 138 mmol/L Potassium Level 3.7 mmol/L Chloride Level 105 mmol/L Carbon Dioxide Level 25 mmol/L Anion Gap 8 Blood Urea Nitrogen 38 mg/dL Creatinine 1.3 mg/dL Estimated GFR (Cockcroft-Gault) 43.5 Glucose Level 180 mg/dL Calcium Level 8.0 mg/dL Phosphorus Level 3.1 mg/dL Magnesium Level 2.0 mg/dL Glucose (Fingerstick) 168 mg/dL Imaging: CXR 07/20 IMPRESSION: Stable small bilateral pleural effusions and diffuse hazy opacities. PE: GEN: IR staff present A/P: Gallstone pancreatitis, MOSF -- Having IR procedure/cath replacement when I went by. Continue support. Hemodynamically unstable?: No Is patient in severe pain?: No Is NPO status required?: Yes CYNDEE FALCON Jul 21, 2019 10:09
--- NOTE | 2019-07-21 11:37 | PDOC ---
Renal-Progress Notes Subjective Notes Notes REMAINS ON THE VENT History of Present Illness Hx of present illness NO CHANGE Vitals Vitals Vital Signs Date Time Temp Pulse Resp B/P (MAP) Pulse Ox O2 Delivery O2 Flow Rate FiO2 07/21/19 11:35 Mechanical Ventilator 07/21/19 11:00 92 25 115/66 (82) 100 07/21/19 08:00 100.2 100.2 07/21/19 05:28 6.0 Weight Weight [ ] I.O. Intake and Output Intake and Output 07/21/19 07:00 Intake Total 2370 ml Output Total 855 ml Balance 1515 ml IV Total 2370 ml Output Urine Total 555 ml Stool Total 150 ml Gastric Drainage Total 150 ml Labs Labs Laboratory Tests Test 07/20/19 16:00 07/21/19 00:01 07/21/19 05:30 07/21/19 05:48 White Blood Count 22.6 x10^3/uL (4.0-11.0) Red Blood Count 2.75 x10^6/uL (3.50-5.40) Hemoglobin 8.9 g/dL (12.0-15.5) Hematocrit 26.9 % (36.0-47.0) Mean Corpuscular Volume 98 fL (79-100) Mean Corpuscular Hemoglobin 32 pg (25-35) Mean Corpuscular Hemoglobin Concent 33 g/dL (31-37) Red Cell Distribution Width 17.1 % (11.5-14.5) Platelet Count 257 x10^3/uL (140-400) Neutrophils (%) (Auto) 82 % (31-73) Lymphocytes (%) (Auto) 10 % (24-48) Monocytes (%) (Auto) 6 % (0-9) Eosinophils (%) (Auto) 2 % (0-3) Basophils (%) (Auto) 1 % (0-3) Neutrophils # (Auto) 18.5 x10^3/uL (1.8-7.7) Lymphocytes # (Auto) 2.2 x10^3/uL (1.0-4.8) Monocytes # (Auto) 1.3 x10^3/uL (0.0-1.1) Eosinophils # (Auto) 0.5 x10^3/uL (0.0-0.7) Basophils # (Auto) 0.1 x10^3/uL (0.0-0.2) Sodium Level 137 mmol/L (136-145) 138 mmol/L (136-145) 138 mmol/L (136-145) Potassium Level 3.9 mmol/L (3.5-5.1) 3.8 mmol/L (3.5-5.1) 3.7 mmol/L (3.5-5.1) Chloride Level 104 mmol/L (98-107) 105 mmol/L (98-107) 105 mmol/L (98-107) Carbon Dioxide Level 28 mmol/L (21-32) 27 mmol/L (21-32) 25 mmol/L (21-32) Anion Gap 5 (6-14) 6 (6-14) 8 (6-14) Blood Urea Nitrogen 30 mg/dL (7-20) 33 mg/dL (7-20) 38 mg/dL (7-20) Creatinine 1.1 mg/dL (0.6-1.0) 1.2 mg/dL (0.6-1.0) 1.3 mg/dL (0.6-1.0) Estimated GFR (Cockcroft-Gault) 52.8 47.7 43.5 Glucose Level 170 mg/dL (70-99) 173 mg/dL (70-99) 180 mg/dL (70-99) Calcium Level 8.2 mg/dL (8.5-10.1) 8.0 mg/dL (8.5-10.1) 8.0 mg/dL (8.5-10.1) Phosphorus Level 2.9 mg/dL (2.6-4.7) 3.2 mg/dL (2.6-4.7) 3.1 mg/dL (2.6-4.7) Magnesium Level 2.3 mg/dL (1.8-2.4) 2.0 mg/dL (1.8-2.4) 2.0 mg/dL (1.8-2.4) Glucose (Fingerstick) 168 mg/dL (70-99) Micro Micro Microbiology 07/12/19 Blood Culture - Final, Complete NO GROWTH AFTER 5 DAYS Review of Systems Constitutional: yes: other (ON THE VENT) Physical Exam General Appearance: other (ON THE VENT) Skin: warm Respiratory: decreased breath sounds Heart: S1S2 Abdomen: soft, bowel sounds present Genitourinary: bladder flat Extremities: pulses present, edema Neurology: other (SEDATED) Assessment Assessment IMP [id number] OF 1.3 ON CRRT ANEMIA LEUCOCYTOSIS ANASARCA DUE TO 3RD SPACING HYPERKALEMIA-RESOLVED ACIDOSIS AND ACIDEMIA-CONTROLLED ACUTE REPS FAILURE ACUTE PANCREATITIS HYPOALBUMINEMIA HYPOCALCEMIA-BETTER POOR HD CATHETER FUNCTION PLAN TPN PRBC NEEDED CONT HIRAM STOP CRRT NEW HD CATHETER ATTEMPT TO DIURESE IHD TOMORROW VENT SUPPORT PRESSORS NEEDED ANTIBIOTICS WILL FOLLOW D/W DR LANDRUM VERY POOR PROGNOSIS DONI GARCIA MD Jul 21, 2019 11:37
[2019-07-21 13:02] LABS: BASE EXCESS ABG -3 mmol/L (-3-3); HCO3 ABG 20 mmol/L (21-28); PCO2 ABG 31 mmHg (35-46); PO2 ABG 65 mmHg (75-108); SAT O2 ABG 91 % (92-99)
--- NOTE | 2019-07-21 13:04 | PDOC ---
PROGRESS NOTES Assessment Assessment Respiratory failure. Seizure. Metabolic encephalopathy. Fever 102.7 degree. Metabolic acidosis. Diffuse pulmonary infiltrate. Pleural effusion. Pancreatitis Gallstone. Leukocytosis. Electrolytes imbalances. Hyperglycemia. DM. HTN. HLD. Anemia. Obesity. RECOMMENDATIONS/PLAN: Continue life support in CCU at the present time. Keppra if has further seizures. Treat medical diseases. EEG last week: No seizure activity. OBJECTIVE: 07/21/19: No seizures reported over night. Past Medical History Cardiovascular: HTN, Hyperlipidemia Endocrine: Diabetes Family History Unobtainable. Social HistoryU not obtainable Allergies Coded Allergies: Codeine (Verified Allergy, Intermediate, rash, 07/04/19) ROS Unobtainable in unresponsive state. PHYSICAL EXAMINATION: General appearance in sub acute distress. HEENT: Normocephalic and nontraumatic. Eyes, nose, ears, and throat are unremarkable. Neck is supple. No lymphadenopathy. Cardiovascular: S1, S2. Pulmonary: On vent.. Abdomen: Bowel sounds are weak. Extremities: No rash, lesions. Edema noted in hands. NEUROLOGICAL EXAMINATION: Minimal responsiveness. On vent. Not oriented to time, place and person. PERRL. EOMI not elicited, CN: no acute focal findings. Muscle tone: within normal. Muscle strength: No movements to stimuli. DTR: 1 Plantar reflex: No response bilaterally Gait: not able to walk. Sensory exam: no response to stimuli.. Not able to access cerebellar signs. F-T-N test not performed due to unresponsiveness Objective Objective Vital Signs Date Time Temp Pulse Resp B/P (MAP) Pulse Ox O2 Delivery O2 Flow Rate FiO2 07/21/19 12:29 100 Ventilator 07/21/19 12:00 99.6 94 25 119/71 (87) 99.6 07/21/19 05:28 6.0 Intake and Output 07/21/19 07:00 Intake Total 2370 ml Output Total 855 ml Balance 1515 ml IV Total 2370 ml Output Urine Total 555 ml Stool Total 150 ml Gastric Drainage Total 150 ml Vitals Signs Vitals VS - Last 72 Hours, by Label Date Time Temp Pulse Resp B/P (MAP) Pulse Ox O2 Delivery O2 Flow Rate FiO2 07/21/19 12:29 100 Ventilator 07/21/19 12:00 99.6 94 25 119/71 (87) 100 Ventilator 99.6 07/21/19 11:35 Mechanical Ventilator 07/21/19 11:00 92 25 115/66 (82) 100 Ventilator 07/21/19 10:00 97 25 94/64 (74) 100 Ventilator 07/21/19 09:00 94 25 144/85 (104) 100 Ventilator 07/21/19 08:00 100.2 121 25 136/72 (93) 100 Ventilator 100.2 07/21/19 07:53 Mechanical Ventilator 07/21/19 07:52 100 Ventilator 07/21/19 07:00 115 25 109/62 (78) 100 Ventilator 07/21/19 06:00 118 25 122/74 (90) 100 Ventilator 07/21/19 05:28 24 100 Ventilator 6.0 07/21/19 05:07 100 Ventilator 07/21/19 05:00 116 24 122/62 (82) 100 Ventilator 07/21/19 04:00 100.1 120 24 120/67 (84) 100 Ventilator 100.1 07/21/19 03:56 Mechanical Ventilator 07/21/19 03:00 114 24 118/67 (84) 100 Ventilator 07/21/19 02:09 100 Ventilator 07/21/19 02:00 114 26 119/63 (81) 100 Ventilator 07/21/19 01:00 109 25 112/84 (93) 100 Ventilator 07/21/19 00:00 98.2 109 25 102/69 (80) 100 Ventilator 98.2 07/21/19 00:00 Mechanical Ventilator 07/20/19 23:00 104 27 119/50 (73) 100 Ventilator 07/20/19 22:54 100 Ventilator 07/20/19 22:00 104 26 115/81 (92) 100 Ventilator 07/20/19 21:00 112 25 129/72 (91) 100 Ventilator 07/20/19 20:00 Mechanical Ventilator 6.0 07/20/19 20:00 98.1 104 25 116/63 (80) 100 Ventilator 98.1 07/20/19 19:00 107 25 107/59 (75) 100 Ventilator 07/20/19 18:00 97 25 106/62 (77) 100 Ventilator 07/20/19 17:00 101 25 107/67 (80) 100 Ventilator 07/20/19 16:57 100 Ventilator 07/20/19 16:00 99.0 110 25 106/64 (78) 100 Ventilator 99.0 07/20/19 15:41 Mechanical Ventilator 07/20/19 15:00 110 25 93/65 (74) 100 Ventilator 07/20/19 14:00 99 25 103/65 (78) 100 Ventilator 07/20/19 13:00 103 25 98/58 (71) 100 Ventilator 07/20/19 12:35 100 Ventilator 07/20/19 12:00 100.1 106 25 104/63 (77) 100 Ventilator 100.1 07/20/19 11:35 Mechanical Ventilator 07/20/19 11:00 109 25 124/57 (79) 100 Ventilator 07/20/19 10:00 107 25 122/69 (86) 100 Ventilator 07/20/19 09:00 106 25 93/67 (76) 100 Ventilator 07/20/19 08:50 100 Ventilator 07/20/19 08:17 100 Ventilator 07/20/19 08:00 98.4 108 25 118/57 (77) 100 Ventilator 98.4 07/20/19 07:51 100 Ventilator 07/20/19 07:38 Mechanical Ventilator 07/20/19 07:00 107 25 103/65 (78) 100 Ventilator Laboratory Laboratory Laboratory Tests Test 07/20/19 16:00 07/21/19 00:01 07/21/19 05:30 07/21/19 05:48 White Blood Count 22.6 x10^3/uL (4.0-11.0) Red Blood Count 2.75 x10^6/uL (3.50-5.40) Hemoglobin 8.9 g/dL (12.0-15.5) Hematocrit 26.9 % (36.0-47.0) Mean Corpuscular Volume 98 fL (79-100) Mean Corpuscular Hemoglobin 32 pg (25-35) Mean Corpuscular Hemoglobin Concent 33 g/dL (31-37) Red Cell Distribution Width 17.1 % (11.5-14.5) Platelet Count 257 x10^3/uL (140-400) Neutrophils (%) (Auto) 82 % (31-73) Lymphocytes (%) (Auto) 10 % (24-48) Monocytes (%) (Auto) 6 % (0-9) Eosinophils (%) (Auto) 2 % (0-3) Basophils (%) (Auto) 1 % (0-3) Neutrophils # (Auto) 18.5 x10^3/uL (1.8-7.7) Lymphocytes # (Auto) 2.2 x10^3/uL (1.0-4.8) Monocytes # (Auto) 1.3 x10^3/uL (0.0-1.1) Eosinophils # (Auto) 0.5 x10^3/uL (0.0-0.7) Basophils # (Auto) 0.1 x10^3/uL (0.0-0.2) Sodium Level 137 mmol/L (136-145) 138 mmol/L (136-145) 138 mmol/L (136-145) Potassium Level 3.9 mmol/L (3.5-5.1) 3.8 mmol/L (3.5-5.1) 3.7 mmol/L (3.5-5.1) Chloride Level 104 mmol/L (98-107) 105 mmol/L (98-107) 105 mmol/L (98-107) Carbon Dioxide Level 28 mmol/L (21-32) 27 mmol/L (21-32) 25 mmol/L (21-32) Anion Gap 5 (6-14) 6 (6-14) 8 (6-14) Blood Urea Nitrogen 30 mg/dL (7-20) 33 mg/dL (7-20) 38 mg/dL (7-20) Creatinine 1.1 mg/dL (0.6-1.0) 1.2 mg/dL (0.6-1.0) 1.3 mg/dL (0.6-1.0) Estimated GFR (Cockcroft-Gault) 52.8 47.7 43.5 Glucose Level 170 mg/dL (70-99) 173 mg/dL (70-99) 180 mg/dL (70-99) Calcium Level 8.2 mg/dL (8.5-10.1) 8.0 mg/dL (8.5-10.1) 8.0 mg/dL (8.5-10.1) Phosphorus Level 2.9 mg/dL (2.6-4.7) 3.2 mg/dL (2.6-4.7) 3.1 mg/dL (2.6-4.7) Magnesium Level 2.3 mg/dL (1.8-2.4) 2.0 mg/dL (1.8-2.4) 2.0 mg/dL (1.8-2.4) Glucose (Fingerstick) 168 mg/dL (70-99) Microbiology 07/12/19 Blood Culture - Final, Complete NO GROWTH AFTER 5 DAYS Medication Medications Current Medications Atropine Sulfate (ATROPINE 0.5mg SYRINGE) 0.5 mg PRN Q5MIN PRN IV SEE COMMENTS; Start 07/21/19 at 08:15 Dexmedetomidine HCl 400 mcg/ Sodium Chloride 100 ml @ 0 mls/hr CONT PRN IV ANXIETY / AGITATION Last administered on 07/21/19at 08:36; Start 07/21/19 at 08:15 Furosemide (Lasix) 20 mg 1X ONCE IVP Last administered on 07/21/19at 08:19; Start 07/21/19 at 08:15; Stop 07/21/19 at 08:16; Status DC Lidocaine HCl (Buffered Lidocaine 1%) 3 ml STK-MED ONCE .ROUTE ; Start 07/21/19 at 08:39; Stop 07/21/19 at 08:39; Status DC Lidocaine HCl (Buffered Lidocaine 1%) 6 ml 1X ONCE INJ Last administered on 07/21/19at 09:05; Start 07/21/19 at 09:00; Stop 07/21/19 at 09:06; Status DC Sodium Chloride 500 ml @ 500 mls/hr 1X PRN PRN IV ELEVATED BP, SEE COMMENTS; Start 07/21/19 at 08:15 Sodium Chloride 90 meq/Potassium Chloride 15 meq/ Potassium Phosphate 18 mmol/ Magnesium Sulfate 8 meq/Calcium Gluconate 15 meq/ Multivitamins 10 ml/Chromium/ Copper/Manganese/ Seleni/Zn 0.5 ml/ Insulin Human Regular 20 unit/ Total Parenteral Nutrition/Amino Acids/Dextrose/ Fat Emulsion Intravenous 1,400 ml @ 58.333 mls/ hr TPN CONT IV Last administered on 07/20/19at 21:30; Start 07/20/19 at 22:00; Stop 07/21/19 at 21:59 Sodium Chloride 90 meq/Potassium Chloride 15 meq/ Potassium Phosphate 18 mmol/ Magnesium Sulfate 8 meq/Calcium Gluconate 15 meq/ Multivitamins 10 ml/Chromium/ Copper/Manganese/ Seleni/Zn 0.5 ml/ Insulin Human Regular 20 unit/ Total Parenteral Nutrition/Amino Acids/Dextrose/ Fat Emulsion Intravenous 1,400 ml @ 58.333 mls/ hr TPN CONT IV ; Start 07/21/19 at 22:00; Stop 07/22/19 at 21:59 Comment Review of Relevant I have reviewed the following items kolby (where applicable) has been applied. ZANDER ZUÑIGA MD Jul 21, 2019 13:04
[2019-07-21 13:35] LABS: FIO2 ABG 30
[2019-07-21] MEDS: TPN PER PHARMACY MC PRN (13:43)
--- NOTE | 2019-07-21 13:43 | NUR ---
Pharmacy TPN Dosing Note S: SCOTT AVILA is a 48 year old F Currently receiving Central Continuous TPN started 07/06/19 B:Pertinent PMH: Necrotizing pancreatitis Height: 5 feet, 8 inches Weight: 111.0 kg Current diet: NPO LABS: Sodium: 138 Potassium: 3.7 Chloride: 105 Calcium: 8.0 Corrected Calcium: 9.28 Magnesium: 2.0 CO2: 25 SCr: 1.3 Glucose: 180 Albumin: 2.4 AST: 46 ALT: 20 TPN FORMULA: TPN TYPE: Central Continuous AMINO ACIDS: 125 gm DEXTROSE: 195 gm LIPIDS: 40 gm SODIUM CHLORIDE: 90 mEq POTASSIUM CHLORIDE: 15 mEq POTASSIUM PHOSPHATE: 18 mmol MAGNESIUM: 8 mEq CALCIUM: 15 mEq INSULIN: 20 units MULTIPLE VITAMIN: 10 ml TRACE ELEMENTS: 0.5 ml TPN PLAN: -Electrolytes appear stable today; of note, CRRT stopped on 07/21/19. -Possible resumption on 07/22/19. -BMP, mag, phos tomorrow due to CRRT disruption. R: Continue TPN @ current rate and above formula. Will monitor electrolytes, glucose, and tolerance to TPN. SHARON [facility]STIANSON [facility], 07/21/19 [id number]
--- NOTE | 2019-07-21 15:04 | PDOC ---
PROGRESS NOTES Chief Complaint Chief Complaint Respiratory failure requiring mechanical ventilation Severe Acute gallstone pancreatitis (not a surgical candidate at this time) with necrosis Acute kidney failure now requiring dialysis Salpingitis Gallstones (Calculus of gallbladder with acute cholecystitis without obstruction) HTN Leukocytosis Hypoxia Uterine fibroid Hypoxia with respiratory failure Intractable pain Intractable nausea Covid 19 negative. Acute on chronic anemia will have to follow up since there is suspicion for hemorrhagic fluid in pelvis Plan: discussed with mother at bedside continue supportive measures grim prognosis discussed with surgical scrub tech planning of trach for thursday if unable to extubate History of Present Illness History of Present Illness 07/21/2019 Continues to remain critically ill. The patient unable to be taken off ventilatory support as of yet., Discussed with pulmonary oim consultant. Planning all tracheostomy on Thursday if he is unable to be weaned off vent 07/20/2019 No acute events reported overnight, no fever or chills, remains critically stable, discussed with mother at bedside. [id number] Patient seen and examined in the ICU She is critically ill Mechanically ventilated Assist-control/25/450/30 with 8 of PEEP She is on cefepime daptomycin Flagyl and micafungin GEN for antibiotic coverage Also getting TPN and CRRT Sedated with Versed Getting IV albumin also She is tachycardic at 112 bpm Temp max 100.0 White blood count is down from 45,000 35,000 today Chart reviewed Discussed with RN [id number] Patient seen and examined in the ICU She remains very critically ill Going for a CT of the abdomen chest and pelvis Ventilated : On assist control 40% FiO2 Discussed with RN Chart reviewed [id number] Patient seen and examined in the ICU She is still on CRRT although we plan to change to hemodialysis soon Chart reviewed Discussed with RN Hemoglobin down to 6.9 (suspect CRRT related , Will let nephrology consider transfusion while on dialysis) [id number] Patient seen and examined in the ICU She is mechanically ventilated Before meals/25/450/30% Also on CRRT Very critically ill Chart reviewed Discussed with RN [id number] Patient seen and examined in the ICU She is now been transferred to the Covid 19 unit so we can rule out Covid and keep her in isolation Very critically ill Intubated and ventilated Assist control 40% Chart reviewed Discussed with RN Still on CRRT Getting a chest x-ray now Very concerned about her prognosis [id number] Patient seen and examined in the ICU She is extremely critically ill Remains mechanically ventilated with assist control/25/450/40% Also on continuous renal replacement therapy Chart reviewed Discussed with RN She has TPN hanging Also on pressors [id number] Patient seen and examined in the ICU She is still requiring CRRT On the vent with assist control but her FiO2 is down to 40% from yesterday Slightly better but still very critically ill Discussed with RN Chart reviewed [id number] Patient seen and examined in the ICU She remains extremely critically ill On IV fentanyl IV Versed IV Doxy On the vent Assist-control/25/450/70% She is critically ill Discussed with RN Chart reviewed Patient is currently on CRRT as well [id number] Patient seen and examined in the ICU She had to be intubated this morning On assist-control 25/450/100% with 10 of PEEP and only satting 87% She is extremely critically ill I'm not sure if she will survive Chart reviewed Discussed with RN Ms Diaz is a 48yo F w/ PMHx HTN, prediabetes who presents the emergency room complaints of abdominal pain. Patient described off and on 3 days. She states is constant, described as a squeezing sensation in a band-like distribution. + nausea, vomiting. She denies any fever or diarrhea. Patient denies any abdominal surgical procedures. She states is worse with movements, car ride. Pain initially was upper abdomen however now pretty much generalized. Last bowel movement was 07/03/2019. Nothing makes her pain better. Patient denies any shortness of breath. She does state the pain moves into her chest. Denies any headache or visual changes. Lipase [id number], AST 401, ALT 249, Bilirubin 1.4. CT abdomen confirms pancreatic inflammation, peripancreatic fluid and i nflammatory changes around the pancreas consistent with pancreatitis. Cholelithiasis and 1.4cm uterine fibroid as well as possible left salpingitis. Admitted for further care GI, General surgery, ID, Pulm consulted. 07/04: Overnight per report no urine output. Added dilaudid for pain, PICC placed per IR. Renal US negative.Seen bedside in ICU, given 2L additional NSS and albumin infusion. Still hypotensive, started on levophed. Repeat CT abdomen with necrosis. Updated her fiancee 07/05: Sats are only 87% on nasal cannula oxygen. Dialysis catheter per nephrology 07/06: She is now on BiPAP appears more ill, now on dialysis 3/20: Seen on BiPAP. Her mother and another family member are present and seemed to be good support for her. Currently on dialysis. Appears critically ill 07/08: Overnight Tmax 101.7 , still on BiPAP FiO2 40%, still on low dose Levophed gtt, TPN initiated. On dialysis Overnight still febrile. Dialysis today. She wakes up and responds to pain. No CP. Vitals Vitals Vital Signs Date Time Temp Pulse Resp B/P (MAP) Pulse Ox O2 Delivery O2 Flow Rate FiO2 07/21/19 14:00 90 25 110/64 (79) 100 Ventilator 07/21/19 12:00 99.6 99.6 07/21/19 05:28 6.0 Physical Exam Physical Exam GENERAL: Orally intubated/sedated - generalizd anasarca HEENT: Mild icterus, pupils equal, ETT, NGT NECK: Supple. LUNGS: Decreased breath sounds at the bases. HEART: S1, S2, regular ABDOMEN: Distended, hypoactive BS, Rectal tube in place : Lind EXTREMITIES: Generalized edema, no cyanosis - some mottling, Rooke boots b ilaterally DERMATOLOGIC: Warm and dry. No generalized rash. CENTRAL NERVOUS SYSTEM: Sedated RIJ Temp HDC, RUE-PICC & LIJ - clean General: Other (sedated ) Heart: Other (increased rate) Lungs: Other (decrease bs) Abdomen: Other (firm) Extremities: No edema, Other (SOME CLUBBING ) Skin: Other (mottling noted to extremities ) Labs LABS Laboratory Tests Test 07/20/19 16:00 07/21/19 00:01 07/21/19 05:30 07/21/19 05:48 White Blood Count 22.6 x10^3/uL (4.0-11.0) Red Blood Count 2.75 x10^6/uL (3.50-5.40) Hemoglobin 8.9 g/dL (12.0-15.5) Hematocrit 26.9 % (36.0-47.0) Mean Corpuscular Volume 98 fL (79-100) Mean Corpuscular Hemoglobin 32 pg (25-35) Mean Corpuscular Hemoglobin Concent 33 g/dL (31-37) Red Cell Distribution Width 17.1 % (11.5-14.5) Platelet Count 257 x10^3/uL (140-400) Neutrophils (%) (Auto) 82 % (31-73) Lymphocytes (%) (Auto) 10 % (24-48) Monocytes (%) (Auto) 6 % (0-9) Eosinophils (%) (Auto) 2 % (0-3) Basophils (%) (Auto) 1 % (0-3) Neutrophils # (Auto) 18.5 x10^3/uL (1.8-7.7) Lymphocytes # (Auto) 2.2 x10^3/uL (1.0-4.8) Monocytes # (Auto) 1.3 x10^3/uL (0.0-1.1) Eosinophils # (Auto) 0.5 x10^3/uL (0.0-0.7) Basophils # (Auto) 0.1 x10^3/uL (0.0-0.2) Sodium Level 137 mmol/L (136-145) 138 mmol/L (136-145) 138 mmol/L (136-145) Potassium Level 3.9 mmol/L (3.5-5.1) 3.8 mmol/L (3.5-5.1) 3.7 mmol/L (3.5-5.1) Chloride Level 104 mmol/L (98-107) 105 mmol/L (98-107) 105 mmol/L (98-107) Carbon Dioxide Level 28 mmol/L (21-32) 27 mmol/L (21-32) 25 mmol/L (21-32) Anion Gap 5 (6-14) 6 (6-14) 8 (6-14) Blood Urea Nitrogen 30 mg/dL (7-20) 33 mg/dL (7-20) 38 mg/dL (7-20) Creatinine 1.1 mg/dL (0.6-1.0) 1.2 mg/dL (0.6-1.0) 1.3 mg/dL (0.6-1.0) Estimated GFR (Cockcroft-Gault) 52.8 47.7 43.5 Glucose Level 170 mg/dL (70-99) 173 mg/dL (70-99) 180 mg/dL (70-99) Calcium Level 8.2 mg/dL (8.5-10.1) 8.0 mg/dL (8.5-10.1) 8.0 mg/dL (8.5-10.1) Phosphorus Level 2.9 mg/dL (2.6-4.7) 3.2 mg/dL (2.6-4.7) 3.1 mg/dL (2.6-4.7) Magnesium Level 2.3 mg/dL (1.8-2.4) 2.0 mg/dL (1.8-2.4) 2.0 mg/dL (1.8-2.4) Glucose (Fingerstick) 168 mg/dL (70-99) Test 07/21/19 08:00 O2 Saturation 91 % (92-99) Arterial Blood pH 7.43 (7.35-7.45) Arterial Blood pCO2 at Patient Temp 31 mmHg (35-46) Arterial Blood pO2 at Patient Temp 65 mmHg (75-108) Arterial Blood HCO3 20 mmol/L (21-28) Arterial Blood Base Excess -3 mmol/L (-3-3) FiO2 30 Assessment and Plan Assessmemt and Plan Problems Medical Problems: (1) Acute pancreatitis Status: Acute (2) Cholelithiasis Status: Acute Comment Review of Relevant I have reviewed the following items kolby (where applicable) has been applied. Labs Laboratory Tests Test 07/19/19 17:30 07/19/19 17:40 07/20/19 00:10 07/20/19 00:15 White Blood Count 37.4 x10^3/uL (4.0-11.0) Red Blood Count 2.89 x10^6/uL (3.50-5.40) Hemoglobin 9.3 g/dL (12.0-15.5) Hematocrit 28.0 % (36.0-47.0) Mean Corpuscular Volume 97 fL (79-100) Mean Corpuscular Hemoglobin 32 pg (25-35) Mean Corpuscular Hemoglobin Concent 33 g/dL (31-37) Red Cell Distribution Width 17.1 % (11.5-14.5) Platelet Count 307 x10^3/uL (140-400) Neutrophils (%) (Auto) 86 % (31-73) Lymphocytes (%) (Auto) 6 % (24-48) Monocytes (%) (Auto) 5 % (0-9) Eosinophils (%) (Auto) 2 % (0-3) Basophils (%) (Auto) 1 % (0-3) Neutrophils # (Auto) 32.1 x10^3/uL (1.8-7.7) Lymphocytes # (Auto) 2.4 x10^3/uL (1.0-4.8) Monocytes # (Auto) 1.9 x10^3/uL (0.0-1.1) Eosinophils # (Auto) 0.8 x10^3/uL (0.0-0.7) Basophils # (Auto) 0.2 x10^3/uL (0.0-0.2) Sodium Level 138 mmol/L (136-145) 137 mmol/L (136-145) Potassium Level 4.1 mmol/L (3.5-5.1) 4.1 mmol/L (3.5-5.1) Chloride Level 104 mmol/L (98-107) 103 mmol/L (98-107) Carbon Dioxide Level 28 mmol/L (21-32) 28 mmol/L (21-32) Anion Gap 6 (6-14) 6 (6-14) Blood Urea Nitrogen 33 mg/dL (7-20) 32 mg/dL (7-20) Creatinine 1.2 mg/dL (0.6-1.0) 1.1 mg/dL (0.6-1.0) Estimated GFR (Cockcroft-Gault) 47.7 52.8 BUN/Creatinine Ratio 28 (6-20) Glucose Level 185 mg/dL (70-99) 181 mg/dL (70-99) Calcium Level 8.1 mg/dL (8.5-10.1) 8.0 mg/dL (8.5-10.1) Phosphorus Level 3.1 mg/dL (2.6-4.7) 2.9 mg/dL (2.6-4.7) Magnesium Level 2.3 mg/dL (1.8-2.4) 2.1 mg/dL (1.8-2.4) Total Bilirubin 1.0 mg/dL (0.2-1.0) Aspartate Amino Transf (AST/SGOT) 50 U/L (15-37) Alanine Aminotransferase (ALT/SGPT) 21 U/L (14-59) Alkaline Phosphatase 128 U/L (46-116) Total Protein 5.3 g/dL (6.4-8.2) Albumin 2.5 g/dL (3.4-5.0) Albumin/Globulin Ratio 0.9 (1.0-1.7) Glucose (Fingerstick) 170 mg/dL (70-99) Test 07/20/19 05:30 07/20/19 05:37 07/20/19 08:00 07/20/19 11:29 White Blood Count 30.1 x10^3/uL (4.0-11.0) Red Blood Count 2.81 x10^6/uL (3.50-5.40) Hemoglobin 9.1 g/dL (12.0-15.5) Hematocrit 27.5 % (36.0-47.0) Mean Corpuscular Volume 98 fL (79-100) Mean Corpuscular Hemoglobin 32 pg (25-35) Mean Corpuscular Hemoglobin Concent 33 g/dL (31-37) Red Cell Distribution Width 16.8 % (11.5-14.5) Platelet Count 281 x10^3/uL (140-400) Neutrophils (%) (Auto) 81 % (31-73) Lymphocytes (%) (Auto) 10 % (24-48) Monocytes (%) (Auto) 6 % (0-9) Eosinophils (%) (Auto) 2 % (0-3) Basophils (%) (Auto) 1 % (0-3) Neutrophils # (Auto) 24.4 x10^3/uL (1.8-7.7) Lymphocytes # (Auto) 3.0 x10^3/uL (1.0-4.8) Monocytes # (Auto) 1.7 x10^3/uL (0.0-1.1) Eosinophils # (Auto) 0.7 x10^3/uL (0.0-0.7) Basophils # (Auto) 0.2 x10^3/uL (0.0-0.2) Sodium Level 138 mmol/L (136-145) Potassium Level 4.0 mmol/L (3.5-5.1) Chloride Level 104 mmol/L (98-107) Carbon Dioxide Level 28 mmol/L (21-32) Anion Gap 6 (6-14) Blood Urea Nitrogen 31 mg/dL (7-20) Creatinine 1.1 mg/dL (0.6-1.0) Estimated GFR (Cockcroft-Gault) 52.8 BUN/Creatinine Ratio 28 (6-20) Glucose Level 177 mg/dL (70-99) Calcium Level 8.2 mg/dL (8.5-10.1) Phosphorus Level 2.9 mg/dL (2.6-4.7) Magnesium Level 2.3 mg/dL (1.8-2.4) Total Bilirubin 1.0 mg/dL (0.2-1.0) Aspartate Amino Transf (AST/SGOT) 46 U/L (15-37) Alanine Aminotransferase (ALT/SGPT) 20 U/L (14-59) Alkaline Phosphatase 119 U/L (46-116) Total Protein 5.2 g/dL (6.4-8.2) Albumin 2.4 g/dL (3.4-5.0) Albumin/Globulin Ratio 0.9 (1.0-1.7) Glucose (Fingerstick) 182 mg/dL (70-99) 163 mg/dL (70-99) O2 Saturation 95 % (92-99) Arterial Blood pH 7.34 (7.35-7.45) Arterial Blood pCO2 at Patient Temp 41 mmHg (35-46) Arterial Blood pO2 at Patient Temp 83 mmHg (75-108) Arterial Blood HCO3 22 mmol/L (21-28) Arterial Blood Base Excess -4 mmol/L (-3-3) FiO2 30% Test 07/20/19 11:30 07/20/19 16:00 07/21/19 00:01 07/21/19 05:30 Sodium Level 137 mmol/L (136-145) 137 mmol/L (136-145) 138 mmol/L (136-145) 138 mmol/L (136-145) Potassium Level 3.7 mmol/L (3.5-5.1) 3.9 mmol/L (3.5-5.1) 3.8 mmol/L (3.5-5.1) 3.7 mmol/L (3.5-5.1) Chloride Level 104 mmol/L (98-107) 104 mmol/L (98-107) 105 mmol/L (98-107) 105 mmol/L (98-107) Carbon Dioxide Level 29 mmol/L (21-32) 28 mmol/L (21-32) 27 mmol/L (21-32) 25 mmol/L (21-32) Anion Gap 4 (6-14) 5 (6-14) 6 (6-14) 8 (6-14) Blood Urea Nitrogen 31 mg/dL (7-20) 30 mg/dL (7-20) 33 mg/dL (7-20) 38 mg/dL (7-20) Creatinine 1.1 mg/dL (0.6-1.0) 1.1 mg/dL (0.6-1.0) 1.2 mg/dL (0.6-1.0) 1.3 mg/dL (0.6-1.0) Estimated GFR (Cockcroft-Gault) 52.8 52.8 47.7 43.5 Glucose Level 165 mg/dL (70-99) 170 mg/dL (70-99) 173 mg/dL (70-99) 180 mg/dL (70-99) Calcium Level 7.2 mg/dL (8.5-10.1) 8.2 mg/dL (8.5-10.1) 8.0 mg/dL (8.5-10.1) 8.0 mg/dL (8.5-10.1) Phosphorus Level 2.9 mg/dL (2.6-4.7) 2.9 mg/dL (2.6-4.7) 3.2 mg/dL (2.6-4.7) 3.1 mg/dL (2.6-4.7) Magnesium Level 2.0 mg/dL (1.8-2.4) 2.3 mg/dL (1.8-2.4) 2.0 mg/dL (1.8-2.4) 2.0 mg/dL (1.8-2.4) White Blood Count 22.6 x10^3/uL (4.0-11.0) Red Blood Count 2.75 x10^6/uL (3.50-5.40) Hemoglobin 8.9 g/dL (12.0-15.5) Hematocrit 26.9 % (36.0-47.0) Mean Corpuscular Volume 98 fL (79-100) Mean Corpuscular Hemoglobin 32 pg (25-35) Mean Corpuscular Hemoglobin Concent 33 g/dL (31-37) Red Cell Distribution Width 17.1 % (11.5-14.5) Platelet Count 257 x10^3/uL (140-400) Neutrophils (%) (Auto) 82 % (31-73) Lymphocytes (%) (Auto) 10 % (24-48) Monocytes (%) (Auto) 6 % (0-9) Eosinophils (%) (Auto) 2 % (0-3) Basophils (%) (Auto) 1 % (0-3) Neutrophils # (Auto) 18.5 x10^3/uL (1.8-7.7) Lymphocytes # (Auto) 2.2 x10^3/uL (1.0-4.8) Monocytes # (Auto) 1.3 x10^3/uL (0.0-1.1) Eosinophils # (Auto) 0.5 x10^3/uL (0.0-0.7) Basophils # (Auto) 0.1 x10^3/uL (0.0-0.2) Test 07/21/19 05:48 07/21/19 08:00 Glucose (Fingerstick) 168 mg/dL (70-99) O2 Saturation 91 % (92-99) Arterial Blood pH 7.43 (7.35-7.45) Arterial Blood pCO2 at Patient Temp 31 mmHg (35-46) Arterial Blood pO2 at Patient Temp 65 mmHg (75-108) Arterial Blood HCO3 20 mmol/L (21-28) Arterial Blood Base Excess -3 mmol/L (-3-3) FiO2 30 Laboratory Tests Test 07/20/19 16:00 07/21/19 00:01 07/21/19 05:30 07/21/19 05:48 White Blood Count 22.6 x10^3/uL (4.0-11.0) Red Blood Count 2.75 x10^6/uL (3.50-5.40) Hemoglobin 8.9 g/dL (12.0-15.5) Hematocrit 26.9 % (36.0-47.0) Mean Corpuscular Volume 98 fL (79-100) Mean Corpuscular Hemoglobin 32 pg (25-35) Mean Corpuscular Hemoglobin Concent 33 g/dL (31-37) Red Cell Distribution Width 17.1 % (11.5-14.5) Platelet Count 257 x10^3/uL (140-400) Neutrophils (%) (Auto) 82 % (31-73) Lymphocytes (%) (Auto) 10 % (24-48) Monocytes (%) (Auto) 6 % (0-9) Eosinophils (%) (Auto) 2 % (0-3) Basophils (%) (Auto) 1 % (0-3) Neutrophils # (Auto) 18.5 x10^3/uL (1.8-7.7) Lymphocytes # (Auto) 2.2 x10^3/uL (1.0-4.8) Monocytes # (Auto) 1.3 x10^3/uL (0.0-1.1) Eosinophils # (Auto) 0.5 x10^3/uL (0.0-0.7) Basophils # (Auto) 0.1 x10^3/uL (0.0-0.2) Sodium Level 137 mmol/L (136-145) 138 mmol/L (136-145) 138 mmol/L (136-145) Potassium Level 3.9 mmol/L (3.5-5.1) 3.8 mmol/L (3.5-5.1) 3.7 mmol/L (3.5-5.1) Chloride Level 104 mmol/L (98-107) 105 mmol/L (98-107) 105 mmol/L (98-107) Carbon Dioxide Level 28 mmol/L (21-32) 27 mmol/L (21-32) 25 mmol/L (21-32) Anion Gap 5 (6-14) 6 (6-14) 8 (6-14) Blood Urea Nitrogen 30 mg/dL (7-20) 33 mg/dL (7-20) 38 mg/dL (7-20) Creatinine 1.1 mg/dL (0.6-1.0) 1.2 mg/dL (0.6-1.0) 1.3 mg/dL (0.6-1.0) Estimated GFR (Cockcroft-Gault) 52.8 47.7 43.5 Glucose Level 170 mg/dL (70-99) 173 mg/dL (70-99) 180 mg/dL (70-99) Calcium Level 8.2 mg/dL (8.5-10.1) 8.0 mg/dL (8.5-10.1) 8.0 mg/dL (8.5-10.1) Phosphorus Level 2.9 mg/dL (2.6-4.7) 3.2 mg/dL (2.6-4.7) 3.1 mg/dL (2.6-4.7) Magnesium Level 2.3 mg/dL (1.8-2.4) 2.0 mg/dL (1.8-2.4) 2.0 mg/dL (1.8-2.4) Glucose (Fingerstick) 168 mg/dL (70-99) Test 07/21/19 08:00 O2 Saturation 91 % (92-99) Arterial Blood pH 7.43 (7.35-7.45) Arterial Blood pCO2 at Patient Temp 31 mmHg (35-46) Arterial Blood pO2 at Patient Temp 65 mmHg (75-108) Arterial Blood HCO3 20 mmol/L (21-28) Arterial Blood Base Excess -3 mmol/L (-3-3) FiO2 30 Microbiology 07/12/19 Blood Culture - Final, Complete NO GROWTH AFTER 5 DAYS Medications Current Medications Sodium Chloride 1,000 ml @ 1,000 mls/hr Q1H IV Last administered on 07/04/19at 03:00; Start 07/04/19 at 03:00; Stop 07/04/19 at 03:59; Status DC Ondansetron HCl (Zofran) 4 mg 1X ONCE IVP Last administered on 07/04/19at 03:27; Start 07/04/19 at 03:00; Stop 07/04/19 at 03:01; Status DC Morphine Sulfate (Morphine Sulfate) 4 mg 1X ONCE IV ; Start 07/04/19 at 03:00; Stop 07/04/19 at 03:01; Status Cancel Ketorolac Tromethamine (Toradol 30mg Vial) 30 mg 1X ONCE IV Last administered on 07/04/19at 02:54; Start 07/04/19 at 03:00; Stop 07/04/19 at 03:01; Status DC Fentanyl Citrate (Fentanyl 2ml Vial) 25 mcg 1X ONCE IVP Last administered on 07/04/19at 03:23; Start 07/04/19 at 03:30; Stop 07/04/19 at 03:31; Status DC Fentanyl Citrate (Fentanyl 2ml Vial) 100 mcg STK-MED ONCE .ROUTE ; Start at 03:18; Stop 07/04/19 at 03:18; Status DC Iohexol (Omnipaque 350 Mg/ml) 90 ml 1X ONCE IV Last administered on 07/04/19at 03:25; Start 07/04/19 at 03:30; Stop 07/04/19 at 03:31; Status DC Info (CONTRAST GIVEN -- Rx MONITORING) 1 each PRN DAILY PRN MC SEE COMMENTS; Start 07/04/19 at 03:30; Stop 07/06/19 at 03:29; Status DC Hydromorphone HCl (Dilaudid) 0.5 mg 1X ONCE IV Last administered on 07/04/19at 03:55; Start 07/04/19 at 04:30; Stop 07/04/19 at 04:32; Status DC Ondansetron HCl (Zofran) 4 mg PRN Q8HRS PRN IV NAUSEA/VOMITING 1ST CHOICE; Start 07/04/19 at 05:00; Stop 07/04/19 at 09:27; Status DC Morphine Sulfate (Morphine Sulfate) 2 mg PRN Q2HR PRN IV SEVERE PAIN 7-10 Last administered on 07/05/19at 12:26; Start 07/04/19 at 05:00; Stop 07/05/19 at 14:15; Status DC Sodium Chloride 1,000 ml @ 125 mls/hr Q8H IV Last administered on 07/04/19at 20:56; Start 07/04/19 at 05:00; Stop 07/05/19 at 04:59; Status DC Hydromorphone HCl (Dilaudid) 0.5 mg PRN Q3HRS PRN IV SEVERE PAIN 7-10 Last administered on 07/05/19at 10:06; Start 07/04/19 at 05:00; Stop 07/05/19 at 12:01; Status DC Piperacillin Sod/ Tazobactam Sod 4.5 gm/Sodium Chloride 100 ml @ 200 mls/hr 1X ONCE IV Last administered on 07/04/19at 05:44; Start 07/04/19 at 06:00; Stop 07/04/19 at 06:29; Status DC Ondansetron HCl (Zofran) 4 mg PRN Q4HRS PRN IV NAUSEA/VOMITING 1ST CHOICE Last administered on 07/09/19at 16:15; Start 07/04/19 at 09:30 Insulin Human Lispro (HumaLOG) 0-9 UNITS Q6HRS SQ Last administered on 07/21/19at 00:04; Start 07/04/19 at 09:30 Dextrose (Dextrose 50%-Water Syringe) 12.5 gm PRN Q15MIN PRN IV SEE COMMENTS; Start 07/04/19 at 09:30 Pantoprazole Sodium (PROTONIX VIAL for IV PUSH) 40 mg DAILYAC IVP Last administered on 07/21/19at 08:29; Start 07/04/19 at 11:30 Prochlorperazine Edisylate (Compazine) 10 mg PRN Q6HRS PRN IV NAUSEA/VOMITING, 2nd CHOICE Last administered on 07/05/19at 00:42; Start 07/04/19 at 17:45 Atenolol (Tenormin) 100 mg DAILY PO ; Start 07/05/19 at 09:00; Stop 07/04/19 at 20:08; Status DC Metoprolol Tartrate (Lopressor Vial) 2.5 mg Q6HRS IVP Last administered on 07/05/19at 05:51; Start 07/04/19 at 20:15; Stop 07/05/19 at 10:02; Status DC Metoprolol Tartrate (Lopressor Vial) 5 mg Q6HRS IVP Last administered on 07/14/19at 00:12; Start 07/05/19 at 10:15; Stop 07/16/19 at 08:48; Status DC Hydromorphone HCl (Dilaudid) 1 mg PRN Q3HRS PRN IV SEVERE PAIN 7-10 Last administered on 07/11/19at 05:13; Start 07/05/19 at 12:00; Stop 07/19/19 at 00:25; Status DC Lidocaine HCl (Buffered Lidocaine 1%) 3 ml STK-MED ONCE .ROUTE ; Start 07/05/19 at 12:55; Stop 07/05/19 at 12:56; Status DC Albumin Human 500 ml @ 125 mls/hr 1X ONCE IV Last administered on 07/05/19at 14:33; Start 07/05/19 at 14:30; Stop 07/05/19 at 18:32; Status DC Norepinephrine Bitartrate 8 mg/ Dextrose 258 ml @ 17.299 mls/ hr CONT PRN IV PER PROTOCOL Last administered on 07/20/19at 23:50; Start 07/05/19 at 15:30 Sodium Chloride 1,000 ml @ 125 mls/hr Q8H IV Last administered on 07/05/19at 21:04; Start 07/05/19 at 16:00; Stop 07/06/19 at 02:42; Status DC Albumin Human 500 ml @ 125 mls/hr PRN BID PRN IV After every 2L NSS & BP < 90mm Last administered on 07/20/19at 14:21; Start 07/05/19 at 16:00 Iohexol (Omnipaque 300 Mg/ml) 60 ml 1X ONCE IV Last administered on 07/05/19at 17:20; Start 07/05/19 at 17:00; Stop 07/05/19 at 17:01; Status DC Info (CONTRAST GIVEN -- Rx MONITORING) 1 each PRN DAILY PRN MC SEE COMMENTS; Start 07/05/19 at 17:00; Stop 07/07/19 at 16:59; Status DC Meropenem 1 gm/ Sodium Chloride 100 ml @ 200 mls/hr Q8HRS IV Last administered on 07/06/19at 05:45; Start 07/05/19 at 20:00; Stop 07/06/19 at 08:48; Status DC Furosemide (Lasix) 40 mg 1X ONCE IVP Last administered on 07/05/19at 22:12; Start 07/05/19 at 22:30; Stop 07/05/19 at 22:31; Status DC Calcium Chloride 1000 mg/Sodium Chloride 110 ml @ 220 mls/hr 1X ONCE IV Last administered on 07/05/19at 22:11; Start 07/05/19 at 22:30; Stop 07/05/19 at 22:59; Status DC Albuterol Sulfate (Ventolin Neb Soln) 2.5 mg 1X ONCE NEB Last administered on 07/06/19at 00:56; Start 07/05/19 at 22:30; Stop 07/05/19 at 22:31; Status DC Insulin Human Regular (HumuLIN R VIAL) 5 unit 1X ONCE IV Last administered on 07/05/19at 22:14; Start 07/05/19 at 22:30; Stop 07/05/19 at 22:31; Status DC Magnesium Sulfate 50 ml @ 25 mls/hr 1X ONCE IV Last administered on 07/06/19at 02:57; Start 07/06/19 at 03:00; Stop 07/06/19 at 04:59; Status DC Calcium Gluconate 1000 mg/Sodium Chloride 110 ml @ 220 mls/hr 1X ONCE IV Last administered on 07/06/19at 02:46; Start 07/06/19 at 03:00; Stop 07/06/19 at 03:29; Status DC Sodium Chloride 1,000 ml @ 200 mls/hr Q5H IV Last administered on 07/06/19at 02:46; Start 07/06/19 at 03:00; Stop 07/06/19 at 10:21; Status DC Calcium Gluconate 1000 mg/Sodium Chloride 110 ml @ 220 mls/hr 1X ONCE IV Last administered on 07/06/19at 03:21; Start 07/06/19 at 03:30; Stop 07/06/19 at 03:59; Status DC Sodium Bicarbonate 50 meq/Sodium Chloride 1,050 ml @ 75 mls/hr Q14H IV Last administered on 07/10/19at 21:10; Start 07/06/19 at 07:30; Stop 07/11/19 at 10:28; Status DC Calcium Gluconate 2000 mg/Sodium Chloride 120 ml @ 220 mls/hr 1X ONCE IV Last administered on 07/06/19at 09:05; Start 07/06/19 at 07:30; Stop 07/06/19 at 08 :02; Status DC Lidocaine HCl (Xylocaine-Mpf 1% 2ml Vial) 2 ml STK-MED ONCE .ROUTE ; Start 07/06/19 at 08:47; Stop 07/06/19 at 08:47; Status DC Meropenem 500 mg/ Sodium Chloride 50 ml @ 100 mls/hr Q12HR IV Last administered on 07/11/19at 21:01; Start 07/06/19 at 18:00; Stop 07/12/19 at 07:58; Status DC Lidocaine HCl (Buffered Lidocaine 1%) 3 ml STK-MED ONCE .ROUTE ; Start 07/06/19 at 09:46; Stop 07/06/19 at 09:46; Status DC Lidocaine HCl (Buffered Lidocaine 1%) 6 ml 1X ONCE INJ Last administered on at 10:26; Start 07/06/19 at 10:15; Stop 07/06/19 at 10:16; Status DC Info (Tpn Per Pharmacy) 1 each PRN DAILY PRN MC SEE COMMENTS Last administered on 07/21/19at 13:43; Start 07/06/19 at 12:00 Sodium Chloride 1,000 ml @ 1,000 mls/hr Q1H PRN IV hypotension; Start 07/06/19 at 12:07; Stop 07/06/19 at 18:06; Status DC Diphenhydramine HCl (Benadryl) 25 mg 1X PRN PRN IV ITCHING; Start 07/06/19 at 12:15; Stop 07/07/19 at 12:14; Status DC Diphenhydramine HCl (Benadryl) 25 mg 1X PRN PRN IV ITCHING; Start 07/06/19 at 12:15; Stop 07/07/19 at 12:14; Status DC Sodium Chloride 1,000 ml @ 400 mls/hr Q2H30M PRN IV PATENCY; Start 07/06/19 at 12:07; Stop 07/07/19 at 00:06; Status DC Info (PHARMACY MONITORING -- do not chart) 1 each PRN DAILY PRN MC SEE COMMENTS; Start 07/06/19 at 12:15; Stop 07/08/19 at 08:13; Status DC Sodium Chloride 90 meq/Calcium Gluconate 10 meq/ Multivitamins 10 ml/Chromium/ Copper/Manganese/ Seleni/Zn 1 ml/ Total Parenteral Nutrition/Amino Acids/Dextrose/ Fat Emulsion Intravenous 55.005 ml @ 2.292 mls/hr TPN CONT IV ; Start 07/06/19 at 22:00; Stop 07/06/19 at 12:33; Status DC Info (Tpn Per Pharmacy) 1 each PRN DAILY PRN MC SEE COMMENTS; Start 07/06/19 at 12:30; Status UNV Sodium Chloride 90 meq/Calcium Gluconate 10 meq/ Multivitamins 10 ml/Chromium/ Copper/Manganese/ Seleni/Zn 0.5 ml/ Total Parenteral Nutrition/Amino Acids/Dextrose/ Fat Emulsion Intravenous 1,512 ml @ 63 mls/hr TPN CONT IV Last administered on 07/06/19at 22:06; Start 07/06/19 at 22:00; Stop 07/07/19 at 21:59; Status DC Calcium Carbonate/ Glycine (Tums) 500 mg PRN AFTMEALHC PRN PO INDIGESTION; Start 07/06/19 at 17:45 Calcium Gluconate (Calcium Gluconate) 2,000 mg 1X ONCE IVP Last administered on 07/07/19at 02:19; Start 07/07/19 at 02:15; Stop 07/07/19 at 02:16; Status DC Calcium Chloride 3000 mg/Sodium Chloride 1,030 ml @ 50 mls/hr [id number] IV Last administered on 07/09/19at 02:17; Start 07/07/19 at 08:00; Stop 07/09/19 at 15:23; Status DC Lorazepam (Ativan Inj) 1 mg PRN Q4HRS PRN IVP ANXIETY / AGITATION Last admi nistered on 07/11/19at 00:34; Start 07/07/19 at 09:00 Sodium Chloride 1,000 ml @ 1,000 mls/hr Q1H PRN IV hypotension; Start 07/07/19 at 08:56; Stop 07/07/19 at 14:55; Status DC Albumin Human 200 ml @ 200 mls/hr 1X PRN PRN IV Hypotension; Start 07/07/19 at 09:00; Stop 07/07/19 at 14:59; Status DC Diphenhydramine HCl (Benadryl) 25 mg 1X PRN PRN IV ITCHING; Start 07/07/19 at 09:00; Stop 07/08/19 at 08:59; Status DC Diphenhydramine HCl (Benadryl) 25 mg 1X PRN PRN IV ITCHING; Start 07/07/19 at 09:00; Stop 07/08/19 at 08:59; Status DC Sodium Chloride 1,000 ml @ 400 mls/hr Q2H30M PRN IV PATENCY; Start 07/07/19 at 08:56; Stop 07/07/19 at 20:55; Status DC Info (PHARMACY MONITORING -- do not chart) 1 each PRN DAILY PRN MC SEE COMMENTS; Start 07/07/19 at 09:00; Status UNV Info (PHARMACY MONITORING -- do not chart) 1 each PRN DAILY PRN MC SEE COMMENTS; Start 07/07/19 at 09:00; Stop 07/08/19 at 08:13; Status DC Digoxin (Lanoxin) 500 mcg 1X ONCE IV Last administered on 07/07/19at 10:04; Start 07/07/19 at 10:00; Stop 07/07/19 at 10:01; Status DC Digoxin (Lanoxin) 125 mcg 1X ONCE IV Last administered on 07/07/19at 17:10; Start 07/07/19 at 18:00; Stop 07/07/19 at 18:01; Status DC Magnesium Sulfate 100 ml @ 25 mls/hr 1X ONCE IV Last administered on 07/07/19a t 12:48; Start 07/07/19 at 13:00; Stop 07/07/19 at 16:59; Status DC Sodium Chloride 90 meq/Magnesium Sulfate 10 meq/ Calcium Gluconate 20 meq/ Multivitamins 10 ml/Chromium/ Copper/Manganese/ Seleni/Zn 0.5 ml/ Total Parenteral Nutrition/Amino Acids/Dextrose/ Fat Emulsion Intravenous 1,512 ml @ 63 mls/hr TPN CONT IV Last administered on 07/07/19at 22:25; Start 07/07/19 at 22:00; Stop 07/08/19 at 21:59; Status DC Sodium Chloride 1,000 ml @ 1,000 mls/hr Q1H PRN IV hypotension; Start 07/08/19 at 08:05; Stop 07/08/19 at 14:04; Status DC Albumin Human 200 ml @ 200 mls/hr 1X ONCE IV Last administered on 07/08/19at 08:57; Start 07/08/19 at 08:15; Stop 07/08/19 at 09:14; Status DC Diphenhydramine HCl (Benadryl) 25 mg 1X PRN PRN IV ITCHING; Start 07/08/19 at 08:15; Stop 07/09/19 at 08:14; Status DC Diphenhydramine HCl (Benadryl) 25 mg 1X PRN PRN IV ITCHING; Start 07/08/19 at 08:15; Stop 07/09/19 at 08:14; Status DC Sodium Chloride 1,000 ml @ 400 mls/hr Q2H30M PRN IV PATENCY; Start 07/08/19 at 08:05; Stop 07/08/19 at 20:04; Status DC Info (PHARMACY MONITORING -- do not chart) 1 each PRN DAILY PRN MC SEE COMMENTS; Start 07/08/19 at 08:15; Stop 07/12/19 at 07:57; Status DC Sodium Chloride 90 meq/Potassium Chloride 15 meq/ Potassium Phosphate 10 mmol/ Magnesium Sulfate 10 meq/Calcium Gluconate 20 meq/ Multivitamins 10 ml/Chromium/ Copper/Manganese/ Seleni/Zn 0.5 ml/ Total Parenteral Nutrition/Amino Acids/Dextrose/ Fat Emulsion Intravenous 1,512 ml @ 63 mls/hr TPN CONT IV Last administered on 07/08/19at 21:01; Start 07/08/19 at 22:00; Stop 07/09/19 at 21:59; Status DC Potassium Chloride/Water 100 ml @ 100 mls/hr 1X ONCE IV Last administered on 07/08/19at 14:09; Start 07/08/19 at 14:00; Stop 07/08/19 at 14:59; Status DC Benzocaine (Hurricaine One) 1 spray 1X ONCE MM Last administered on 07/08/19at 16:38; Start 07/08/19 at 14:30; Stop 07/08/19 at 14:31; Status DC Lidocaine HCl (Glydo (Lidocaine) Jelly) 1 ramu 1X ONCE MM Last administered on 07/08/19at 16:38; Start 07/08/19 at 14:30; Stop 07/08/19 at 14:31; Status DC Linezolid/Dextrose 300 ml @ 300 mls/hr Q12HR IV Last administered on 07/14/19at 21:04; Start 07/08/19 at 20:00; Stop 07/15/19 at 07:50; Status DC Acetaminophen (Tylenol) 650 mg PRN Q6HRS PRN PO MILD PAIN / TEMP; Start 07/09/19 at 03:30; Stop 07/09/19 at 03:36; Status DC Acetaminophen (Tylenol) 650 mg PRN Q6HRS PRN PEG MILD PAIN / TEMP Last administered on 07/14/19at 07:35; Start 07/09/19 at 03:36 Sodium Chloride 1,000 ml @ 1,000 mls/hr Q1H PRN IV hypotension; Start 07/09/19 at 07:50; Stop 07/09/19 at 13:49; Status DC Albumin Human 200 ml @ 200 mls/hr 1X PRN PRN IV Hypotension; Start 07/09/19 at 08:00; Stop 07/09/19 at 13:59; Status DC Sodium Chloride (Normal Saline Flush) 10 ml 1X PRN PRN IV AP catheter pack; Start 07/09/19 at 08:00; Stop 07/10/19 at 07:59; Status DC Sodium Chloride (Normal Saline Flush) 10 ml 1X PRN PRN IV BODY SHOP ESTIMATOR catheter pack; Start 07/09/19 at 08:00; Stop 07/10/19 at 07:59; Status DC Sodium Chloride 1,000 ml @ 400 mls/hr Q2H30M PRN IV PATENCY; Start 07/09/19 at 07:50; Stop 07/09/19 at 19:49; Status DC Info (PHARMACY MONITORING -- do not chart) 1 each PRN DAILY PRN MC SEE COMMENTS; Start 07/09/19 at 08:00; Status UNV Info (PHARMACY MONITORING -- do not chart) 1 each PRN DAILY PRN MC SEE COMMENTS; Start 07/09/19 at 08:00; Stop 07/11/19 at 08:25; Status DC Sodium Chloride 90 meq/Potassium Chloride 15 meq/ Potassium Phosphate 10 mmol/ Magnesium Sulfate 10 meq/Calcium Gluconate 20 meq/ Multivitamins 10 ml/Chromium/ Copper/Manganese/ Seleni/Zn 0.5 ml/ Total Parenteral Nutrition/Amino Acids/Dextrose/ Fat Emulsion Intravenous 1,512 ml @ 63 mls/hr TPN CONT IV Last administered on 07/09/19at 20:57; Start 07/09/19 at 22:00; Stop 07/10/19 at 21:59; Status DC Sodium Chloride 90 meq/Potassium Chloride 15 meq/ Potassium Phosphate 15 mmol/ Magnesium Sulfate 10 meq/Calcium Gluconate 20 meq/ Multivitamins 10 ml/Chromium/ Copper/Manganese/ Seleni/Zn 0.5 ml/ Total Parenteral Nutrition/Amino Acids/Dextrose/ Fat Emulsion Intravenous 1,512 ml @ 63 mls/hr TPN CONT IV ; Start 07/10/19 at 22:00; Stop 07/10/19 at 14:16; Status DC Sodium Chloride 90 meq/Potassium Chloride 15 meq/ Potassium Phosphate 15 mmol/ Magnesium Sulfate 10 meq/Calcium Gluconate 20 meq/ Multivitamins 10 ml/Chromium/ Copper/Manganese/ Seleni/Zn 0.5 ml/ Total Parenteral Nutrition/Amino Acids/Dextrose/ Fat Emulsion Intravenous 1,200 ml @ 50 mls/hr TPN CONT IV ; Start 07/10/19 at 22:00; Stop 07/10/19 at 14:17; Status DC Sodium Chloride 90 meq/Potassium Chloride 15 meq/ Potassium Phosphate 10 mmol/ Magnesium Sulfate 10 meq/Calcium Gluconate 20 meq/ Multivitamins 10 ml/Chromium/ Copper/Manganese/ Seleni/Zn 0.5 ml/ Total Parenteral Nutrition/Amino Acids/Dextrose/ Fat Emulsion Intravenous 1,200 ml @ 50 mls/hr TPN CONT IV Last administered on 07/10/19at 23:29; Start 07/10/19 at 22:00; Stop 07/11/19 at 21:59; Status DC Sodium Chloride 1,000 ml @ 1,000 mls/hr Q1H PRN IV hypotension; Start 07/11/19 at 07:28; Stop 07/11/19 at 13:27; Status DC Albumin Human 200 ml @ 200 mls/hr 1X ONCE IV Last administered on 07/11/19at 08:51; Start 07/11/19 at 07:30; Stop 07/11/19 at 08:29; Status DC Diphenhydramine HCl (Benadryl) 25 mg 1X PRN PRN IV ITCHING; Start 07/11/19 at 07:30; Stop 07/12/19 at 07:29; Status DC Diphenhydramine HCl (Benadryl) 25 mg 1X PRN PRN IV ITCHING; Start 07/11/19 at 07:30; Stop 07/12/19 at 07:29; Status DC Sodium Chloride 1,000 ml @ 400 mls/hr Q2H30M PRN IV PATENCY; Start 07/11/19 at 07:28; Stop 07/11/19 at 19:27; Status DC Info (PHARMACY MONITORING -- do not chart) 1 each PRN DAILY PRN MC SEE COMMENTS; Start 07/11/19 at 07:30 Metronidazole 100 ml @ 100 mls/hr Q6HRS IV Last administered on 07/21/19at 11:25; Start 07/11/19 at 08:30 Micafungin Sodium 100 mg/Dextrose 100 ml @ 100 mls/hr Q24H IV Last administered on 07/21/19at 09:11; Start 07/11/19 at 09:00 Propofol 0 ml @ As Directed STK-MED ONCE IV ; Start 07/11/19 at 07:53; Stop 07/11/19 at 07:53; Status DC Etomidate (Amidate) 20 mg STK-MED ONCE IV ; Start 07/11/19 at 07:53; Stop 07/11/19 at 07:54; Status DC Midazolam HCl (Versed) 5 mg STK-MED ONCE .ROUTE ; Start 07/11/19 at 07:57; Stop 07/11/19 at 07:57; Status DC Fentanyl Citrate 30 ml @ 0 mls/hr CONT PRN IV SEE PROTOCOL Last administered on 07/21/19at 05:28; Start 07/11/19 at 08:15 Artificial Tears (Artificial Tears) 1 drop PRN Q1HR PRN OU DRY EYE; Start 07/11/19 at 08:15 Midazolam HCl 50 mg/Sodium Chloride 50 ml @ 0 mls/hr CONT PRN IV SEE PROTOCOL Last administered on 07/14/19at 22:39; Start 07/11/19 at 08:15; Stop 07/16/19 at 15:59; Status DC Etomidate (Amidate) 8 mg 1X ONCE IV Last administered on 07/11/19at 08:33; Start 07/11/19 at 08:30; Stop 07/11/19 at 08:31; Status DC Succinylcholine Chloride (Anectine) 120 mg 1X ONCE IV Last administered on 07/11/19at 08:34; Start 07/11/19 at 08:30; Stop 07/11/19 at 08:31; Status DC Midazolam HCl (Versed) 5 mg 1X ONCE IV ; Start 07/11/19 at 08:30; Stop 07/11/19 at 08:31; Status DC Potassium Chloride 15 meq/ Bicarbonate Dialysis Soln w/ out KCl 5,007.5 ml @ 1,000 mls/ hr Q5H1M IV Last administered on 07/12/19at 11:11; Start 07/11/19 at 12:00; Stop 07/12/19 at 11:15; Status DC Potassium Chloride 15 meq/ Bicarbonate Dialysis Soln w/ out KCl 5,007.5 ml @ 1,000 mls/ hr Q5H1M IV Last administered on 07/12/19at 11:12; Start 07/11/19 at 12:00; Stop 07/12/19 at 11:17; Status DC Potassium Chloride 15 meq/ Bicarbonate Dialysis Soln w/ out KCl 5,007.5 ml @ 1,000 mls/ hr Q5H1M IV Last administered on 07/12/19at 11:11; Start 07/11/19 at 12:00; Stop 07/12/19 at 11:19; Status DC Sodium Chloride 90 meq/Potassium Chloride 15 meq/ Potassium Phosphate 10 mmol/ Magnesium Sulfate 10 meq/Calcium Gluconate 20 meq/ Multivitamins 10 ml/Chromium/ Copper/Manganese/ Seleni/Zn 0.5 ml/ Total Parenteral Nutrition/Amino Acids/Dextrose/ Fat Emulsion Intravenous 1,400 ml @ 58.333 mls/ hr TPN CONT IV Last administered on 07/11/19at 21:42; Start 07/11/19 at 22:00; Stop 07/12/19 at 21:59; Status DC Heparin Sodium (Porcine) (Heparin Sodium) 5,000 unit Q8HRS SQ Last administered on 07/16/19at 05:55; Start 07/11/19 at 15:00; Stop 07/16/19 at 13:28; Status DC Meropenem 500 mg/ Sodium Chloride 50 ml @ 100 mls/hr Q6HRS IV Last administered on 07/13/19at 06:00; Start 07/12/19 at 09:00; Stop 07/13/19 at 07:29; Status DC Potassium Phosphate 20 mmol/ Sodium Chloride 106.6667 ml @ 51.667 m... 1X ONCE IV Last administered on 07/12/19at 11:22; Start 07/12/19 at 10:15; Stop 07/12/19 at 12:18; Status DC Acetaminophen (Tylenol Supp) 650 mg PRN Q6HRS PRN [place] MILD PAIN / TEMP Last administered on 07/12/19at 10:37; Start 07/12/19 at 10:30 Potassium Chloride/Water 100 ml @ 100 mls/hr Q1H IV Last administered on 07/12/19at 12:12; Start 07/12/19 at 11:00; Stop 07/12/19 at 12:59; Status DC Potassium Chloride 20 meq/ Bicarbonate Dialysis Soln w/ out KCl 5,010 ml @ 1,000 mls/hr Q5H1M IV Last administered on 07/13/19at 08:48; Start 07/12/19 at 12:00; Stop 07/13/19 at 13:03; Status DC Potassium Chloride 20 meq/ Bicarbonate Dialysis Soln w/ out KCl 5,010 ml @ 1,000 mls/hr Q5H1M IV Last administered on 07/17/19at 14:52; Start 07/12/19 at 11:30; Stop 07/17/19 at 19:59; Status DC Potassium Chloride 20 meq/ Bicarbonate Dialysis Soln w/ out KCl 5,010 ml @ 1,000 mls/hr Q5H1M IV Last administered on 07/17/19at 14:53; Start 07/12/19 at 11:30; Stop 07/17/19 at 19:59; Status DC Sodium Chloride 90 meq/Potassium Chloride 15 meq/ Potassium Phosphate 15 mmol/ Magnesium Sulfate 10 meq/Calcium Gluconate 15 meq/ Multivitamins 10 ml/Chromium/ Copper/Manganese/ Seleni/Zn 0.5 ml/ Total Parenteral Nutrition/Amino Acids/Dextrose/ Fat Emulsion Intravenous 1,400 ml @ 58.333 mls/ hr TPN CONT IV Last administered on 07/12/19at 22:17; Start 07/12/19 at 22:00; Stop 07/13/19 at 21:59; Status DC Cefepime HCl (Maxipime) 2 gm Q12HR IVP Last administered on 07/21/19at 09:11; Start 07/13/19 at 09:00 Daptomycin 500 mg/ Sodium Chloride 50 ml @ 100 mls/hr Q48H IV Last administered on 07/21/19 08:29; Start 07/13/19 at 08:30 Lidocaine HCl (Buffered Lidocaine 1%) 3 ml 1X ONCE INJ Last administered on 07/13/19at 10:27; Start 07/13/19 at 10:30; Stop 07/13/19 at 10:31; Status DC Potassium Phosphate 20 mmol/ Sodium Chloride 106.6667 ml @ 51.667 m... 1X ONCE IV Last administered on 07/13/19at 12:51; Start 07/13/19 at 13:00; Stop 07/13/19 at 15:03; Status DC Sodium Chloride 90 meq/Potassium Chloride 15 meq/ Potassium Phosphate 18 mmol/ Magnesium Sulfate 8 meq/Calcium Gluconate 15 meq/ Multivitamins 10 ml/Chromium/ Copper/Manganese/ Seleni/Zn 0.5 ml/ Total Parenteral Nutrition/Amino Acids/Dextrose/ Fat Emulsion Intravenous 1,400 ml @ 58.333 mls/ hr TPN CONT IV Last administered on 07/13/19at 22:16; Start 07/13/19 at 22:00; Stop 07/14/19 at 21:59; Status DC Potassium Chloride 20 meq/ Bicarbonate Dialysis Soln w/ out KCl 5,010 ml @ 1,000 mls/hr Q5H1M IV Last administered on 07/17/19at 14:54; Start 07/13/19 at 16:00; Stop 07/17/19 at 19:59; Status DC Multi-Ingred Cream/Lotion/Oil/ Oint (Artificial Tears Eye Ointment) 1 ramu PRN Q1HR PRN OU DRY EYE Last administered on 07/18/19at 08:05; Start 07/13/19 at 17:30 Sodium Chloride 90 meq/Potassium Chloride 15 meq/ Potassium Phosphate 18 mmol/ Magnesium Sulfate 8 meq/Calcium Gluconate 15 meq/ Multivitamins 10 ml/Chromium/ Copper/Manganese/ Seleni/Zn 0.5 ml/ Total Parenteral Nutrition/Amino Acids/Dextrose/ Fat Emulsion Intravenous 1,400 ml @ 58.333 mls/ hr TPN CONT IV Last administered on 07/14/19at 22:00; Start 07/14/19 at 22:00; Stop 07/15/19 at 21:59; Status DC Albumin Human 500 ml @ 125 mls/hr 1X ONCE IV ; Start 07/14/19 at 14:15; Stop 07/14/19 at 18:14; Status DC Sodium Chloride 90 meq/Potassium Chloride 15 meq/ Potassium Phosphate 18 mmol/ Magnesium Sulfate 8 meq/Calcium Gluconate 15 meq/ Multivitamins 10 ml/Chromium/ Copper/Manganese/ Seleni/Zn 0.5 ml/ Insulin Human Regular 10 unit/ Total Parenteral Nutrition/Amino Acids/Dextrose/ Fat Emulsion Intravenous 1,400 ml @ 58.333 mls/ hr TPN CONT IV Last administered on 07/15/19at 21:43; Start 07/15/19 at 22:00; Stop 07/16/19 at 21:59; Status DC Lidocaine HCl (Buffered Lidocaine 1%) 3 ml STK-MED ONCE .ROUTE ; Start 07/13/19 at 10:00; Stop 07/15/19 at 13:57; Status DC Midazolam HCl 100 mg/Sodium Chloride 100 ml @ 7 mls/hr CONT PRN IV SEE PROTOCOL Last administered on 07/20/19at 13:57; Start 07/16/19 at 16:00 Sodium Chloride 90 meq/Potassium Chloride 15 meq/ Potassium Phosphate 18 mmol/ Magnesium Sulfate 8 meq/Calcium Gluconate 15 meq/ Multivitamins 10 ml/Chromium/ Copper/Manganese/ Seleni/Zn 0.5 ml/ Insulin Human Regular 15 unit/ Total Parenteral Nutrition/Amino Acids/Dextrose/ Fat Emulsion Intravenous 1,400 ml @ 58.333 mls/ hr TPN CONT IV Last administered on 07/16/19at 20:34; Start 07/16/19 at 22:00; Stop 07/17/19 at 21:59; Status DC Info (Icu Electrolyte Protocol) 1 ea CONT PRN PRN MC PER PROTOCOL; Start 07/17/19 at 13:15 Sodium Chloride 90 meq/Potassium Chloride 15 meq/ Potassium Phosphate 18 mmol/ Magnesium Sulfate 8 meq/Calcium Gluconate 15 meq/ Multivitamins 10 ml/Chromium/ Copper/Manganese/ Seleni/Zn 0.5 ml/ Insulin Human Regular 15 unit/ Total Parenteral Nutrition/Amino Acids/Dextrose/ Fat Emulsion Intravenous 1,400 ml @ 58.333 mls/ hr TPN CONT IV Last administered on 07/17/19at 22:05; Start 07/17/19 at 22:00; Stop 07/18/19 at 21:59; Status DC Potassium Chloride 15 meq/ Bicarbonate Dialysis Soln w/ out KCl 5,007.5 ml @ 1,000 mls/ hr Q5H1M IV Last administered on 07/20/19at 18:14; Start 07/17/19 at 20:00; Stop 07/21/19 at 13:08; Status DC Potassium Chloride 15 meq/ Bicarbonate Dialysis Soln w/ out KCl 5,007.5 ml @ 1,000 mls/ hr Q5H1M IV Last administered on 07/20/19at 18:14; Start 07/17/19 at 20:00; Stop 07/21/19 at 13:08; Status DC Potassium Chloride 15 meq/ Bicarbonate Dialysis Soln w/ out KCl 5,007.5 ml @ 1,000 mls/ hr Q5H1M IV Last administered on 07/20/19at 18:14; Start 07/17/19 at 20:00; Stop 07/21/19 at 13:08; Status DC Iohexol (Omnipaque 240 Mg/ml) 30 ml 1X ONCE PO Last administered on 07/18/19at 11:30; Start 07/18/19 at 11:30; Stop 07/18/19 at 11:33; Status DC Info (CONTRAST GIVEN -- Rx MONITORING) 1 each PRN DAILY PRN MC SEE COMMENTS; Start 07/18/19 at 11:45; Stop 07/20/19 at 11:44; Status DC Sodium Chloride 90 meq/Potassium Chloride 15 meq/ Potassium Phosphate 18 mmol/ Magnesium Sulfate 8 meq/Calcium Gluconate 15 meq/ Multivitamins 10 ml/Chromium/ Copper/Manganese/ Seleni/Zn 0.5 ml/ Insulin Human Regular 15 unit/ Total Parenteral Nutrition/Amino Acids/Dextrose/ Fat Emulsion Intravenous 1,400 ml @ 58.333 mls/ hr TPN CONT IV Last administered on 07/18/19at 21:47; Start 07/18/19 at 22:00; Stop 07/19/19 at 21:59; Status DC Sodium Chloride 90 meq/Potassium Chloride 15 meq/ Potassium Phosphate 18 mmol/ Magnesium Sulfate 8 meq/Calcium Gluconate 15 meq/ Multivitamins 10 ml/Chromium/ Copper/Manganese/ Seleni/Zn 0.5 ml/ Insulin Human Regular 20 unit/ Total Parenteral Nutrition/Amino Acids/Dextrose/ Fat Emulsion Intravenous 1,400 ml @ 58.333 mls/ hr TPN CONT IV Last administered on 07/19/19at 21:36; Start 07/19/19 at 22:00; Stop 07/20/19 at 21:59; Status DC Alteplase, Recombinant (Cathflo For Central Catheter Clearance) 1 mg 1X ONCE INT CAT Last administered on 07/19/19at 20:03; Start 07/19/19 at 19:30; Stop 07/19/19 at 19:46; Status DC Alteplase, Recombinant (Cathflo For Central Catheter Clearance) 1 mg 1X ONCE INT CAT Last administered on 07/19/19at 22:05; Start 07/19/19 at 22:00; Stop 07/19/19 at 22:01; Status DC Sodium Chloride 90 meq/Potassium Chloride 15 meq/ Potassium Phosphate 18 mmol/ Magnesium Sulfate 8 meq/Calcium Gluconate 15 meq/ Multivitamins 10 ml/Chromium/ Copper/Manganese/ Seleni/Zn 0.5 ml/ Insulin Human Regular 20 unit/ Total Parenteral Nutrition/Amino Acids/Dextrose/ Fat Emulsion Intravenous 1,400 ml @ 58.333 mls/ hr TPN CONT IV Last administered on 07/20/19at 21:30; Start 07/20/19 at 22:00; Stop 07/21/19 at 21:59 Dexmedetomidine HCl 400 mcg/ Sodium Chloride 100 ml @ 0 mls/hr CONT PRN IV ANXIETY / AGITATION Last administered on 07/21/19at 13:37; Start 07/21/19 at 08:15 Sodium Chloride 500 ml @ 500 mls/hr 1X PRN PRN IV ELEVATED BP, SEE COMMENTS; Start 07/21/19 at 08:15 Atropine Sulfate (ATROPINE 0.5mg SYRINGE) 0.5 mg PRN Q5MIN PRN IV SEE COMMENTS; Start 07/21/19 at 08:15 Furosemide (Lasix) 20 mg 1X ONCE IVP Last administered on 07/21/19at 08:19; Start 07/21/19 at 08:15; Stop 07/21/19 at 08:16; Status DC Lidocaine HCl (Buffered Lidocaine 1%) 3 ml STK-MED ONCE .ROUTE ; Start 07/21/19 at 08:39; Stop 07/21/19 at 08:39; Status DC Lidocaine HCl (Buffered Lidocaine 1%) 6 ml 1X ONCE INJ Last administered on 07/21/19at 09:05; Start 07/21/19 at 09:00; Stop 07/21/19 at 09:06; Status DC Sodium Chloride 90 meq/Potassium Chloride 15 meq/ Potassium Phosphate 18 mmol/ Magnesium Sulfate 8 meq/Calcium Gluconate 15 meq/ Multivitamins 10 ml/Chromium/ Copper/Manganese/ Seleni/Zn 0.5 ml/ Insulin Human Regular 20 unit/ Total Parenteral Nutrition/Amino Acids/Dextrose/ Fat Emulsion Intravenous 1,400 ml @ 58.333 mls/ hr TPN CONT IV ; Start 07/21/19 at 22:00; Stop 07/22/19 at 21:59 Active Scripts Active Reported Bisoprolol Fumarate 5 Mg Tablet 10 Mg PO DAILY Vitals/I & O Vital Sign - Last 24 Hours 07/20/19 07/20/19 07/20/19 07/20/19 15:41 16:00 16:57 17:00 Temp 99.0 99.0 Pulse 110 101 Resp 25 B/P (MAP) 106/64 (78) 107/67 (80) Pulse Ox 100 100 100 O2 Delivery Mechanical Ventilator Ventilator Ventilator Ventilator 07/20/19 07/20/19 07/20/19 07/20/19 18:00 19:00 20:00 20:00 Temp 98.1 98.1 Pulse 97 107 104 Resp B/P (MAP) 106/62 (77) 107/59 (75) 116/63 (80) Pulse Ox 100 100 100 O2 Delivery Ventilator Ventilator Ventilator Mechanical Ventilator O2 Flow Rate 6.0 07/20/19 07/20/19 07/20/19 07/20/19 21:00 22:00 22:54 23:00 Pulse 112 104 104 Resp B/P (MAP) 129/72 (91) 115/81 (92) 119/50 (73) Pulse Ox 100 100 100 100 O2 Delivery Ventilator Ventilator Ventilator Ventilator 07/21/19 07/21/19 07/21/19 07/21/19 00:00 00:00 01:00 02:00 Temp 98.2 98.2 Pulse 109 109 114 Resp B/P (MAP) 102/69 (80) 112/84 (93) 119/63 (81) Pulse Ox 100 100 100 O2 Delivery Mechanical Ventilator Ventilator Ventilator Ventilator 07/21/19 07/21/19 07/21/19 07/21/19 02:09 03:00 03:56 04:00 Temp 100.1 100.1 Pulse 114 120 Resp 24 B/P (MAP) 118/67 (84) 120/67 (84) Pulse Ox 100 100 100 O2 Delivery Ventilator Ventilator Mechanical Ventilator Ventilator 07/21/19 07/21/19 07/21/19 07/21/19 05:00 05:07 05:28 06:00 Pulse 116 118 Resp 25 B/P (MAP) 122/62 (82) 122/74 (90) Pulse Ox 100 100 100 100 O2 Delivery Ventilator Ventilator Ventilator Ventilator O2 Flow Rate 6.0 07/21/19 07/21/19 07/21/19 07/21/19 07:00 07:52 07:53 08:00 Temp 100.2 100.2 Pulse 115 121 Resp B/P (MAP) 109/62 (78) 136/72 (93) Pulse Ox 100 100 100 O2 Delivery Ventilator Ventilator Mechanical Ventilator Ventilator 07/21/19 07/21/19 07/21/19 07/21/19 09:00 10:00 11:00 11:35 Pulse 94 97 92 Resp 25 B/P (MAP) 144/85 (104) 94/64 (74) 115/66 (82) Pulse Ox 100 100 100 O2 Delivery Ventilator Ventilator Ventilator Mechanical Ventilator 07/21/19 07/21/19 07/21/19 07/21/19 12:00 12:29 13:00 14:00 Temp 99.6 99.6 Pulse 94 92 90 Resp B/P (MAP) 119/71 (87) 111/65 (80) 110/64 (79) Pulse Ox 100 100 100 100 O2 Delivery Ventilator Ventilator Ventilator Ventilator Intake and Output 07/20/19 07/20/19 07/21/19 15:00 23:00 07:00 Intake Total 200 ml 953 ml 1217 ml Output Total 270 ml 215 ml 370 ml Balance -70 ml 738 ml 847 ml Hemodynamically unstable?: No Is patient in severe pain?: No Is NPO status required?: Yes NIELS MCGILL MD Jul 21, 2019 15:04
--- NOTE | 2019-07-21 15:25 | NUR ---
SS following up with discharge planning. SS discussed with pt RN. HCFS continuing to follow for self pay status. Pt remains on the vent at this time. CRRT stopped today. Per pt's RN, hemodialysis will be attempted tomorrow, 07/22/2019, and if not CRRT may be restarted. Tentative trach scheduled for 07/25/2019. SS will continue to follow for discharge planning.
[2019-07-21] MEDS ORDERED: DEXTROSE 70% IV SCH ×11 (22:00)
[2019-07-21] MEDS ORDERED: AMINO ACID IV SCH ×11 (22:00)
[2019-07-21] MEDS ORDERED: TOTAL PARENTERAL NUTRITION IV SCH ×11 (22:00)
[2019-07-21] MEDS ORDERED: [UNRECOGNIZED DRUG - OTHER] IV SCH ×11 (22:00)
[2019-07-22] VITALS (23 sets, daily range): BP systolic 84–133; BP diastolic 42–72
[2019-07-22] MEDS: INSULIN LISPRO 300 UNITS/3 ML VIAL. SQ SCH ×4 (00:29→17:04)
[2019-07-22 06:36] LABS: BASO # 0.1 x10^3/uL (0.0-0.2); BASO % 0 % (0-3); EOS # 0.4 x10^3/uL (0.0-0.7); EOS % 2 % (0-3); HEMATOCRIT 25.8 % (36.0-47.0); HEMOGLOBIN 8.2 g/dL (12.0-15.5); LYMPH # 1.1 x10^3/uL (1.0-4.8); LYMPH % 7 % (24-48); MEAN CORPUSCULAR HEMOGLOBIN 32 pg (25-35); MEAN CORPUSCULAR HGB CONC 32 g/dL (31-37); MEAN CORPUSCULAR VOLUME 101 fL (79-100); MONO # 1.2 x10^3/uL (0.0-1.1); MONO % 8 % (0-9); NEUT % 83 % (31-73); PLATELET COUNT 233 x10^3/uL (140-400); RED BLOOD COUNT 2.57 x10^6/uL (3.50-5.40); RED CELL DISTRIBUTION WIDTH 18.9 % (11.5-14.5); WHITE BLOOD COUNT 15.7 x10^3/uL (4.0-11.0)
[2019-07-22 07:27] LABS: ALBUMIN 1.8 g/dL (3.4-5.0); ALBUMIN/GLOBULIN RATIO 0.8 (1.0-1.7); GFR 26.5; MAGNESIUM 2.1 mg/dL (1.8-2.4); PHOSPHORUS 4.7 mg/dL (2.6-4.7); POTASSIUM 3.8 mmol/L (3.5-5.1); TOTAL BILIRUBIN 0.9 mg/dL (0.2-1.0); TOTAL PROTEIN 4.1 g/dL (6.4-8.2)
[2019-07-22] MEDS ORDERED: ALBUMIN HUMAN 25% 200 ML IV PRN (07:30)
[2019-07-22] MEDS ORDERED: 0.9 % SODIUM CHLORIDE 10 ML DISP.SYRIN. IV PRN ×2 (07:30)
[2019-07-22] MEDS ORDERED: IV NORMAL SALINE 1000ML BAG 1,000 ML IV PRN ×2 (07:30)
[2019-07-22] MEDS ORDERED: DIALYSIS PATIENT. MC PRN ×2 (07:30)
--- NOTE | 2019-07-22 07:37 | RAD ---
PORTABLE CHEST 1V INDICATION: Respiratory failure. COMPARISON STUDY: 07/21/2019. FINDINGS: Life Support Devices: Stable endotracheal tube, enteric tube, right PICC, right IJ dual-lumen catheter, left IJ central venous catheter. Lungs: Low lung volume. Stable bilateral hazy opacities. Right middle lobe atelectasis. Pleura: Small to moderate pleural effusions. Heart and Mediastinum: Stable cardiomediastinal silhouette and great vessels. IMPRESSION: 1. [id number] pleural effusions with diffuse hazy opacities. 2. Stable left support devices. Electronically signed by: Bry Michel MD (07/22/2019 7:34 AM) [id number]
[2019-07-22] MEDS: DEXMEDETOMIDINE 400 MCG in IV NORMAL SALINE 100ML 96 ML IV PRN ×3 (07:49→21:19)
[2019-07-22] MEDS: PANTOPRAZOLE IV PUSH 40 MG VIAL. IVP SCH (07:49)
[2019-07-22] MEDS: NOREPINEPHRINE VIAL 8 MG in IV DEXTROSE 5% 250 ML IV PRN (07:51)
--- NOTE | 2019-07-22 08:05 | PDOC ---
PULMONARY PROGRESS NOTES Subjective Patient intubated on 07/10 , sedated Currently on assist control ventilation 450 tidal volume 8 of PEEP , 40%FIO2 fevers Vitals Vital Signs Date Time Temp Pulse Resp B/P (MAP) Pulse Ox O2 Delivery O2 Flow Rate FiO2 07/22/19 07:00 99.6 73 25 92/53 (66) 99 Ventilator 99.6 07/22/19 05:12 6.0 Comments intubated , sedated Lungs: Other (decrease bs) Abdomen: Other (distended) Extremities: Other (trace edema) Labs Laboratory Tests Test 07/20/19 11:29 07/20/19 11:30 07/20/19 16:00 07/21/19 00:01 Glucose (Fingerstick) 163 mg/dL (70-99) Sodium Level 137 mmol/L (136-145) 137 mmol/L (136-145) 138 mmol/L (136-145) Potassium Level 3.7 mmol/L (3.5-5.1) 3.9 mmol/L (3.5-5.1) 3.8 mmol/L (3.5-5.1) Chloride Level 104 mmol/L (98-107) 104 mmol/L (98-107) 105 mmol/L (98-107) Carbon Dioxide Level 29 mmol/L (21-32) 28 mmol/L (21-32) 27 mmol/L (21-32) Anion Gap 4 (6-14) 5 (6-14) 6 (6-14) Blood Urea Nitrogen 31 mg/dL (7-20) 30 mg/dL (7-20) 33 mg/dL (7-20) Creatinine 1.1 mg/dL (0.6-1.0) 1.1 mg/dL (0.6-1.0) 1.2 mg/dL (0.6-1.0) Estimated GFR (Cockcroft-Gault) 52.8 52.8 47.7 Glucose Level 165 mg/dL (70-99) 170 mg/dL (70-99) 173 mg/dL (70-99) Calcium Level 7.2 mg/dL (8.5-10.1) 8.2 mg/dL (8.5-10.1) 8.0 mg/dL (8.5-10.1) Phosphorus Level 2.9 mg/dL (2.6-4.7) 2.9 mg/dL (2.6-4.7) 3.2 mg/dL (2.6-4.7) Magnesium Level 2.0 mg/dL (1.8-2.4) 2.3 mg/dL (1.8-2.4) 2.0 mg/dL (1.8-2.4) White Blood Count 22.6 x10^3/uL (4.0-11.0) Red Blood Count 2.75 x10^6/uL (3.50-5.40) Hemoglobin 8.9 g/dL (12.0-15.5) Hematocrit 26.9 % (36.0-47.0) Mean Corpuscular Volume 98 fL (79-100) Mean Corpuscular Hemoglobin 32 pg (25-35) Mean Corpuscular Hemoglobin Concent 33 g/dL (31-37) Red Cell Distribution Width 17.1 % (11.5-14.5) Platelet Count 257 x10^3/uL (140-400) Neutrophils (%) (Auto) 82 % (31-73) Lymphocytes (%) (Auto) 10 % (24-48) Monocytes (%) (Auto) 6 % (0-9) Eosinophils (%) (Auto) 2 % (0-3) Basophils (%) (Auto) 1 % (0-3) Neutrophils # (Auto) 18.5 x10^3/uL (1.8-7.7) Lymphocytes # (Auto) 2.2 x10^3/uL (1.0-4.8) Monocytes # (Auto) 1.3 x10^3/uL (0.0-1.1) Eosinophils # (Auto) 0.5 x10^3/uL (0.0-0.7) Basophils # (Auto) 0.1 x10^3/uL (0.0-0.2) Test 07/21/19 05:30 07/21/19 05:48 07/21/19 08:00 07/21/19 17:16 Sodium Level 138 mmol/L (136-145) Potassium Level 3.7 mmol/L (3.5-5.1) Chloride Level 105 mmol/L (98-107) Carbon Dioxide Level 25 mmol/L (21-32) Anion Gap 8 (6-14) Blood Urea Nitrogen 38 mg/dL (7-20) Creatinine 1.3 mg/dL (0.6-1.0) Estimated GFR (Cockcroft-Gault) 43.5 Glucose Level 180 mg/dL (70-99) Calcium Level 8.0 mg/dL (8.5-10.1) Phosphorus Level 3.1 mg/dL (2.6-4.7) Magnesium Level 2.0 mg/dL (1.8-2.4) Glucose (Fingerstick) 168 mg/dL (70-99) 211 mg/dL (70-99) O2 Saturation 91 % (92-99) Arterial Blood pH 7.43 (7.35-7.45) Arterial Blood pCO2 at Patient Temp 31 mmHg (35-46) Arterial Blood pO2 at Patient Temp 65 mmHg (75-108) Arterial Blood HCO3 20 mmol/L (21-28) Arterial Blood Base Excess -3 mmol/L (-3-3) FiO2 30 Test 07/22/19 05:51 07/22/19 06:00 Glucose (Fingerstick) 209 mg/dL (70-99) White Blood Count 15.7 x10^3/uL (4.0-11.0) Red Blood Count 2.57 x10^6/uL (3.50-5.40) Hemoglobin 8.2 g/dL (12.0-15.5) Hematocrit 25.8 % (36.0-47.0) Mean Corpuscular Volume 101 fL (79-100) Mean Corpuscular Hemoglobin 32 pg (25-35) Mean Corpuscular Hemoglobin Concent 32 g/dL (31-37) Red Cell Distribution Width 18.9 % (11.5-14.5) Platelet Count 233 x10^3/uL (140-400) Neutrophils (%) (Auto) 83 % (31-73) Lymphocytes (%) (Auto) 7 % (24-48) Monocytes (%) (Auto) 8 % (0-9) Eosinophils (%) (Auto) 2 % (0-3) Basophils (%) (Auto) 0 % (0-3) Neutrophils # (Auto) 13.0 x10^3/uL (1.8-7.7) Lymphocytes # (Auto) 1.1 x10^3/uL (1.0-4.8) Monocytes # (Auto) 1.2 x10^3/uL (0.0-1.1) Eosinophils # (Auto) 0.4 x10^3/uL (0.0-0.7) Basophils # (Auto) 0.1 x10^3/uL (0.0-0.2) Sodium Level 141 mmol/L (136-145) Potassium Level 3.8 mmol/L (3.5-5.1) Chloride Level 107 mmol/L (98-107) Carbon Dioxide Level 20 mmol/L (21-32) Anion Gap 14 (6-14) Blood Urea Nitrogen 63 mg/dL (7-20) Creatinine 2.0 mg/dL (0.6-1.0) Estimated GFR (Cockcroft-Gault) 26.5 BUN/Creatinine Ratio 32 (6-20) Glucose Level 212 mg/dL (70-99) Calcium Level 8.0 mg/dL (8.5-10.1) Phosphorus Level 4.7 mg/dL (2.6-4.7) Magnesium Level 2.1 mg/dL (1.8-2.4) Total Bilirubin 0.9 mg/dL (0.2-1.0) Aspartate Amino Transf (AST/SGOT) 46 U/L (15-37) Alanine Aminotransferase (ALT/SGPT) 20 U/L (14-59) Alkaline Phosphatase 95 U/L (46-116) Total Protein 4.1 g/dL (6.4-8.2) Albumin 1.8 g/dL (3.4-5.0) Albumin/Globulin Ratio 0.8 (1.0-1.7) Laboratory Tests Test 07/21/19 17:16 07/22/19 05:51 07/22/19 06:00 Glucose (Fingerstick) 211 mg/dL (70-99) 209 mg/dL (70-99) White Blood Count 15.7 x10^3/uL (4.0-11.0) Red Blood Count 2.57 x10^6/uL (3.50-5.40) Hemoglobin 8.2 g/dL (12.0-15.5) Hematocrit 25.8 % (36.0-47.0) Mean Corpuscular Volume 101 fL (79-100) Mean Corpuscular Hemoglobin 32 pg (25-35) Mean Corpuscular Hemoglobin Concent 32 g/dL (31-37) Red Cell Distribution Width 18.9 % (11.5-14.5) Platelet Count 233 x10^3/uL (140-400) Neutrophils (%) (Auto) 83 % (31-73) Lymphocytes (%) (Auto) 7 % (24-48) Monocytes (%) (Auto) 8 % (0-9) Eosinophils (%) (Auto) 2 % (0-3) Basophils (%) (Auto) 0 % (0-3) Neutrophils # (Auto) 13.0 x10^3/uL (1.8-7.7) Lymphocytes # (Auto) 1.1 x10^3/uL (1.0-4.8) Monocytes # (Auto) 1.2 x10^3/uL (0.0-1.1) Eosinophils # (Auto) 0.4 x10^3/uL (0.0-0.7) Basophils # (Auto) 0.1 x10^3/uL (0.0-0.2) Sodium Level 141 mmol/L (136-145) Potassium Level 3.8 mmol/L (3.5-5.1) Chloride Level 107 mmol/L (98-107) Carbon Dioxide Level 20 mmol/L (21-32) Anion Gap 14 (6-14) Blood Urea Nitrogen 63 mg/dL (7-20) Creatinine 2.0 mg/dL (0.6-1.0) Estimated GFR (Cockcroft-Gault) 26.5 BUN/Creatinine Ratio 32 (6-20) Glucose Level 212 mg/dL (70-99) Calcium Level 8.0 mg/dL (8.5-10.1) Phosphorus Level 4.7 mg/dL (2.6-4.7) Magnesium Level 2.1 mg/dL (1.8-2.4) Total Bilirubin 0.9 mg/dL (0.2-1.0) Aspartate Amino Transf (AST/SGOT) 46 U/L (15-37) Alanine Aminotransferase (ALT/SGPT) 20 U/L (14-59) Alkaline Phosphatase 95 U/L (46-116) Total Protein 4.1 g/dL (6.4-8.2) Albumin 1.8 g/dL (3.4-5.0) Albumin/Globulin Ratio 0.8 (1.0-1.7) Medications Active Scripts Medications Dose Route/Sig Max Daily Dose Days Date Category Bisoprolol Fumarate 5 Mg Tablet 10 Mg PO DAILY 07/04/19 Reported Comments Chest x-ray reviewed 07/20, poor ins film, basal effusions and volume loss CT chest 07/17 reviewed Impression . IMPRESSION: 1. Acute hypoxemic respiratory failure secondary to ARDS due to acute pancreatitis, septic shock, abdominal distention, and pneumonia.and pleural effusions. Pleural effusions secondary to abdominal process and/or general volume overload from renal failure. 2. Gallstone pancreatitis. WITH NECROSIS 3. Severe metabolic acidosis.stable 4. Acute kidney injury. ON CRRT 5. Acute gallstone pancreatitis. 6. Hypoalbuminemia. 7. Hypocalcemia. 8. Leukocytosis 9. Chronic anemia 10. Covid 19 testing negative 11. Acute /chronic anemia suspected hemorrhagic fluid in pelvis 12, Fever per ID Plan . AC mode, no change in current FIO2/ PEEP wean versed slowly, Precedex if needed Not ready for trial, still fevers Cont AC mode , 40 FIO2/ PEEP. Transfuse prn, check H/H Not a surgical candidate per surgery supportive care CRRT Antibiotics per ID, may need lines changed Follow nephrology input Nutritional support with TPN Prognosis is guarded d/w RN/RT no intervention for effusions, increase UF with HD . d/w DR Zarco / VINAYAK LANDRUM MD Jul 22, 2019 08:05
--- NOTE | 2019-07-22 08:20 | PDOC ---
Infectious Disease Note Subjective Subjective intubated sedated ROS ROS no n/v diarrhea + Vital Sign Vital Signs Vital Signs Date Time Temp Pulse Resp B/P (MAP) Pulse Ox O2 Delivery O2 Flow Rate FiO2 07/22/19 07:00 99.6 73 25 92/53 (66) 99 Ventilator 99.6 07/22/19 05:12 6.0 Physical Exam PHYSICAL EXAM GENERAL: Orally intubated/sedated - generalizd anasarca HEENT: Mild icterus, pupils equal, ETT, NGT NECK: Supple. LUNGS: Decreased breath sounds at the bases. HEART: S1, S2, regular ABDOMEN: Distended, hypoactive BS, Rectal tube in place : Lind EXTREMITIES: Generalized edema, no cyanosis - some mottling, Rooke boots bilaterally DERMATOLOGIC: Warm and dry. No generalized rash. CENTRAL NERVOUS SYSTEM: Sedated RIJ Temp HDC, RUE-PICC & LIJ - clean Labs Lab Laboratory Tests Test 07/21/19 17:16 07/22/19 05:51 07/22/19 06:00 Glucose (Fingerstick) 211 mg/dL (70-99) 209 mg/dL (70-99) White Blood Count 15.7 x10^3/uL (4.0-11.0) Red Blood Count 2.57 x10^6/uL (3.50-5.40) Hemoglobin 8.2 g/dL (12.0-15.5) Hematocrit 25.8 % (36.0-47.0) Mean Corpuscular Volume 101 fL (79-100) Mean Corpuscular Hemoglobin 32 pg (25-35) Mean Corpuscular Hemoglobin Concent 32 g/dL (31-37) Red Cell Distribution Width 18.9 % (11.5-14.5) Platelet Count 233 x10^3/uL (140-400) Neutrophils (%) (Auto) 83 % (31-73) Lymphocytes (%) (Auto) 7 % (24-48) Monocytes (%) (Auto) 8 % (0-9) Eosinophils (%) (Auto) 2 % (0-3) Basophils (%) (Auto) 0 % (0-3) Neutrophils # (Auto) 13.0 x10^3/uL (1.8-7.7) Lymphocytes # (Auto) 1.1 x10^3/uL (1.0-4.8) Monocytes # (Auto) 1.2 x10^3/uL (0.0-1.1) Eosinophils # (Auto) 0.4 x10^3/uL (0.0-0.7) Basophils # (Auto) 0.1 x10^3/uL (0.0-0.2) Sodium Level 141 mmol/L (136-145) Potassium Level 3.8 mmol/L (3.5-5.1) Chloride Level 107 mmol/L (98-107) Carbon Dioxide Level 20 mmol/L (21-32) Anion Gap 14 (6-14) Blood Urea Nitrogen 63 mg/dL (7-20) Creatinine 2.0 mg/dL (0.6-1.0) Estimated GFR (Cockcroft-Gault) 26.5 BUN/Creatinine Ratio 32 (6-20) Glucose Level 212 mg/dL (70-99) Calcium Level 8.0 mg/dL (8.5-10.1) Phosphorus Level 4.7 mg/dL (2.6-4.7) Magnesium Level 2.1 mg/dL (1.8-2.4) Total Bilirubin 0.9 mg/dL (0.2-1.0) Aspartate Amino Transf (AST/SGOT) 46 U/L (15-37) Alanine Aminotransferase (ALT/SGPT) 20 U/L (14-59) Alkaline Phosphatase 95 U/L (46-116) Total Protein 4.1 g/dL (6.4-8.2) Albumin 1.8 g/dL (3.4-5.0) Albumin/Globulin Ratio 0.8 (1.0-1.7) Micro Microbiology 07/12/19 Blood Culture - Final, Complete NO GROWTH AFTER 5 DAYS Objective Assessment Leukocytosis - - ? reactive - trouble with CRRT/S/p PRBCs ? intra-abdominal Fever - better - Flu neg antigen 07/13 ? reactive with pancreatitis vs ID - C- diff neg. S/p HD cath change with malfunction 07/12 - cults 07/11 neg Lung opacities, COVID-19 neg Hypotension Acute pancreatitis, early developing necrosis -U/S 07/13 reviewed JUANA,Hyperkalemia, Metabolic acidosis on CRRT - s/p RIJ temporary dialysis catheter replacement, 07/12 Anasarca - worse Acute hypoxic resp failure, intubated ? developing peripheral ischemia - better Cholelithiasis Anemia - S/p PRBC 07/13 Hypocalcemia Prediabetes HTN Plan Plan of Care Continue Dapto/cefepime (07/12), Flagyl and micafungin (07/10) -Previously on Merrem, Zyvox F/u Blood cults 07/11 so far neg No surgical plans at this time Maintain aspiration precautions Airborne isolation d/c'd. COVID-[address] chest, abd and pelvis,,, noted d/w GI D/w nursing Critically ill KIMMY JONES MD Jul 22, 2019 08:20
[2019-07-22 10:42] LABS: % BANDS 19 % (0-9); % EOS 4 % (0-5); % LYMPHS 13 % (24-48); % MONOS 4 % (0-10); % MYELOS 2 % (0-0); % SEGS 58 % (35-66); NUCLEATED RBC 2
[2019-07-22 10:43] LABS: ANISOCYTOSIS SLIGHT; PLT ESTIMATE ADEQUATE (ADEQUATE)
[2019-07-22] MEDS: MINERAL OIL/PETROLATUM,WHITE OPHTH OINT 3.5GM TUBE. OU PRN (11:05)
--- NOTE | 2019-07-22 11:05 | RAD ---
Replacement of a right internal jugular temporary dialysis catheter over a guidewire 07/13/2019 INDICATION: Pre-existing catheter nonfunctional Discussion The procedure was explained in its entirety to the patient or the patients designated lead generation representative by a member of the treatment team, including a discussion of the risks, benefits and commonly accepted alternatives to the procedure, as well as the expected consequences of no therapy whatsoever. Discussion of the risks included, but was not limited to, those that are most frequent and those that are rare but possibly severe or life-threatening, as well as the possibility of unforeseen complications. All elements of maximal sterile barrier technique including the use of a cap, mask, sterile gown, sterile gloves, large sterile sheet, appropriate hand hygiene, and 2% chlorhexidine for cutaneous antisepsis (or acceptable alternative antiseptic per current guidelines) were followed for this procedure. The pre-existing catheter was removed over a guidewire and replaced with a 15 cm temporary dialysis catheter which was found to flush and aspirate normally. Catheter was flushed, secured in place, and sterile dressings were applied. Impression: Replacement of a right internal jugular temporary dialysis catheter over a guidewire
[2019-07-22] MEDS: MICAFUNGIN 100 MG in IV DEXTROSE 5% 100ML 100 ML IV SCH (12:43)
[2019-07-22] MEDS: CEFEPIME HCL IV Push 2 GM VIAL. IVP SCH ×2 (12:43→20:19)
--- NOTE | 2019-07-22 13:21 | PDOC ---
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 MANAGER OPERATIONS AND PROCUREMENT 07/22/19 1321: SURGICAL PROGRESS NOTE Subjective d/w nursing bilious drainage around mouth Vital Signs Vital Signs Date Time Temp Pulse Resp B/P (MAP) Pulse Ox O2 Delivery O2 Flow Rate FiO2 07/22/19 12:23 Mechanical Ventilator 07/22/19 12:00 77 25 93/61 (72) 99 07/22/19 07:00 99.6 99.6 07/22/19 05:12 6.0 I&O Intake and Output0 07/22/19 07:00 Intake Total 2180 ml Output Total 1330 ml Balance 850 ml IV Total 2180 ml Output Urine Total 980 ml Gastric Drainage Total 350 ml # Bowel Movements 50 HEENT: Other (vent, og) Abdomen: Other (distended, softer) Labs Laboratory Tests Test 07/20/19 16:00 07/21/19 00:01 07/21/19 05:30 07/21/19 05:48 White Blood Count 22.6 x10^3/uL (4.0-11.0) Red Blood Count 2.75 x10^6/uL (3.50-5.40) Hemoglobin 8.9 g/dL (12.0-15.5) Hematocrit 26.9 % (36.0-47.0) Mean Corpuscular Volume 98 fL (79-100) Mean Corpuscular Hemoglobin 32 pg (25-35) Mean Corpuscular Hemoglobin Concent 33 g/dL (31-37) Red Cell Distribution Width 17.1 % (11.5-14.5) Platelet Count 257 x10^3/uL (140-400) Neutrophils (%) (Auto) 82 % (31-73) Lymphocytes (%) (Auto) 10 % (24-48) Monocytes (%) (Auto) 6 % (0-9) Eosinophils (%) (Auto) 2 % (0-3) Basophils (%) (Auto) 1 % (0-3) Neutrophils # (Auto) 18.5 x10^3/uL (1.8-7.7) Lymphocytes # (Auto) 2.2 x10^3/uL (1.0-4.8) Monocytes # (Auto) 1.3 x10^3/uL (0.0-1.1) Eosinophils # (Auto) 0.5 x10^3/uL (0.0-0.7) Basophils # (Auto) 0.1 x10^3/uL (0.0-0.2) Sodium Level 137 mmol/L (136-145) 138 mmol/L (136-145) 138 mmol/L (136-145) Potassium Level 3.9 mmol/L (3.5-5.1) 3.8 mmol/L (3.5-5.1) 3.7 mmol/L (3.5-5.1) Chloride Level 104 mmol/L (98-107) 105 mmol/L (98-107) 105 mmol/L (98-107) Carbon Dioxide Level 28 mmol/L (21-32) 27 mmol/L (21-32) 25 mmol/L (21-32) Anion Gap 5 (6-14) 6 (6-14) 8 (6-14) Blood Urea Nitrogen 30 mg/dL (7-20) 33 mg/dL (7-20) 38 mg/dL (7-20) Creatinine 1.1 mg/dL (0.6-1.0) 1.2 mg/dL (0.6-1.0) 1.3 mg/dL (0.6-1.0) Estimated GFR (Cockcroft-Gault) 52.8 47.7 43.5 Glucose Level 170 mg/dL (70-99) 173 mg/dL (70-99) 180 mg/dL (70-99) Calcium Level 8.2 mg/dL (8.5-10.1) 8.0 mg/dL (8.5-10.1) 8.0 mg/dL (8.5-10.1) Phosphorus Level 2.9 mg/dL (2.6-4.7) 3.2 mg/dL (2.6-4.7) 3.1 mg/dL (2.6-4.7) Magnesium Level 2.3 mg/dL (1.8-2.4) 2.0 mg/dL (1.8-2.4) 2.0 mg/dL (1.8-2.4) Glucose (Fingerstick) 168 mg/dL (70-99) Test 07/21/19 08:00 07/21/19 17:16 07/22/19 05:51 07/22/19 06:00 O2 Saturation 91 % (92-99) Arterial Blood pH 7.43 (7.35-7.45) Arterial Blood pCO2 at Patient Temp 31 mmHg (35-46) Arterial Blood pO2 at Patient Temp 65 mmHg (75-108) Arterial Blood HCO3 20 mmol/L (21-28) Arterial Blood Base Excess -3 mmol/L (-3-3) FiO2 30 Glucose (Fingerstick) 211 mg/dL (70-99) 209 mg/dL (70-99) White Blood Count 15.7 x10^3/uL (4.0-11.0) Red Blood Count 2.57 x10^6/uL (3.50-5.40) Hemoglobin 8.2 g/dL (12.0-15.5) Hematocrit 25.8 % (36.0-47.0) Mean Corpuscular Volume 101 fL (79-100) Mean Corpuscular Hemoglobin 32 pg (25-35) Mean Corpuscular Hemoglobin Concent 32 g/dL (31-37) Red Cell Distribution Width 18.9 % (11.5-14.5) Platelet Count 233 x10^3/uL (140-400) Neutrophils (%) (Auto) 83 % (31-73) Lymphocytes (%) (Auto) 7 % (24-48) Monocytes (%) (Auto) 8 % (0-9) Eosinophils (%) (Auto) 2 % (0-3) Basophils (%) (Auto) 0 % (0-3) Neutrophils # (Auto) 13.0 x10^3/uL (1.8-7.7) Lymphocytes # (Auto) 1.1 x10^3/uL (1.0-4.8) Monocytes # (Auto) 1.2 x10^3/uL (0.0-1.1) Eosinophils # (Auto) 0.4 x10^3/uL (0.0-0.7) Basophils # (Auto) 0.1 x10^3/uL (0.0-0.2) Segmented Neutrophils % 58 % (35-66) Band Neutrophils % 19 % (0-9) Lymphocytes % 13 % (24-48) Monocytes % 4 % (0-10) Eosinophils % 4 % (0-5) Myelocytes % 2 % (0-0) Nucleated Red Blood Cells 2 Platelet Estimate Adequate (ADEQUATE) Giant Platelets Occ Anisocytosis Slight Sodium Level 141 mmol/L (136-145) Potassium Level 3.8 mmol/L (3.5-5.1) Chloride Level 107 mmol/L (98-107) Carbon Dioxide Level 20 mmol/L (21-32) Anion Gap 14 (6-14) Blood Urea Nitrogen 63 mg/dL (7-20) Creatinine 2.0 mg/dL (0.6-1.0) Estimated GFR (Cockcroft-Gault) 26.5 BUN/Creatinine Ratio 32 (6-20) Glucose Level 212 mg/dL (70-99) Calcium Level 8.0 mg/dL (8.5-10.1) Phosphorus Level 4.7 mg/dL (2.6-4.7) Magnesium Level 2.1 mg/dL (1.8-2.4) Total Bilirubin 0.9 mg/dL (0.2-1.0) Aspartate Amino Transf (AST/SGOT) 46 U/L (15-37) Alanine Aminotransferase (ALT/SGPT) 20 U/L (14-59) Alkaline Phosphatase 95 U/L (46-116) Total Protein 4.1 g/dL (6.4-8.2) Albumin 1.8 g/dL (3.4-5.0) Albumin/Globulin Ratio 0.8 (1.0-1.7) Lipase 823 U/L (73-393) Test 07/22/19 13:11 Glucose (Fingerstick) 159 mg/dL (70-99) Laboratory Tests Test 07/21/19 17:16 07/22/19 05:51 07/22/19 06:00 07/22/19 13:11 Glucose (Fingerstick) 211 mg/dL (70-99) 209 mg/dL (70-99) 159 mg/dL (70-99) White Blood Count 15.7 x10^3/uL (4.0-11.0) Red Blood Count 2.57 x10^6/uL (3.50-5.40) Hemoglobin 8.2 g/dL (12.0-15.5) Hematocrit 25.8 % (36.0-47.0) Mean Corpuscular Volume 101 fL (79-100) Mean Corpuscular Hemoglobin 32 pg (25-35) Mean Corpuscular Hemoglobin Concent 32 g/dL (31-37) Red Cell Distribution Width 18.9 % (11.5-14.5) Platelet Count 233 x10^3/uL (140-400) Neutrophils (%) (Auto) 83 % (31-73) Lymphocytes (%) (Auto) 7 % (24-48) Monocytes (%) (Auto) 8 % (0-9) Eosinophils (%) (Auto) 2 % (0-3) Basophils (%) (Auto) 0 % (0-3) Neutrophils # (Auto) 13.0 x10^3/uL (1.8-7.7) Lymphocytes # (Auto) 1.1 x10^3/uL (1.0-4.8) Monocytes # (Auto) 1.2 x10^3/uL (0.0-1.1) Eosinophils # (Auto) 0.4 x10^3/uL (0.0-0.7) Basophils # (Auto) 0.1 x10^3/uL (0.0-0.2) Segmented Neutrophils % 58 % (35-66) Band Neutrophils % 19 % (0-9) Lymphocytes % 13 % (24-48) Monocytes % 4 % (0-10) Eosinophils % 4 % (0-5) Myelocytes % 2 % (0-0) Nucleated Red Blood Cells 2 Platelet Estimate Adequate (ADEQUATE) Giant Platelets Occ Anisocytosis Slight Sodium Level 141 mmol/L (136-145) Potassium Level 3.8 mmol/L (3.5-5.1) Chloride Level 107 mmol/L (98-107) Carbon Dioxide Level 20 mmol/L (21-32) Anion Gap 14 (6-14) Blood Urea Nitrogen 63 mg/dL (7-20) Creatinine 2.0 mg/dL (0.6-1.0) Estimated GFR (Cockcroft-Gault) 26.5 BUN/Creatinine Ratio 32 (6-20) Glucose Level 212 mg/dL (70-99) Calcium Level 8.0 mg/dL (8.5-10.1) Phosphorus Level 4.7 mg/dL (2.6-4.7) Magnesium Level 2.1 mg/dL (1.8-2.4) Total Bilirubin 0.9 mg/dL (0.2-1.0) Aspartate Amino Transf (AST/SGOT) 46 U/L (15-37) Alanine Aminotransferase (ALT/SGPT) 20 U/L (14-59) Alkaline Phosphatase 95 U/L (46-116) Total Protein 4.1 g/dL (6.4-8.2) Albumin 1.8 g/dL (3.4-5.0) Albumin/Globulin Ratio 0.8 (1.0-1.7) Lipase 823 U/L (73-393) Problem List Problems Medical Problems: (1) Acute pancreatitis Status: Acute (2) Cholelithiasis Status: Acute Assessment/Plan will review with Dr Servin supportive care DAVON SERVIN MD 07/22/19 1521: SURGICAL PROGRESS NOTE Assessment/Plan Pt seen and examined. Agree with Ms. Horton's note Pt remains reasonably stable abd soft, NTTP cont supportive care 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 MANAGER OPERATIONS AND PROCUREMENT Jul 22, 2019 13:21 DAVON SERVIN MD Jul 22, 2019 15:21
--- NOTE | 2019-07-22 13:35 | PDOC ---
Renal-Progress Notes Subjective Notes Notes ON THE VENT History of Present Illness Hx of present illness NO CHANGES Vitals Vitals Vital Signs Date Time Temp Pulse Resp B/P (MAP) Pulse Ox O2 Delivery O2 Flow Rate FiO2 07/22/19 12:23 Mechanical Ventilator 07/22/19 12:00 77 25 93/61 (72) 99 07/22/19 07:00 99.6 99.6 07/22/19 05:12 6.0 Weight Weight [ ] I.O. Intake and Output Intake and Output 07/22/19 07:00 Intake Total 2180 ml Output Total 1330 ml Balance 850 ml IV Total 2180 ml Output Urine Total 980 ml Gastric Drainage Total 350 ml # Bowel Movements 50 Labs Labs Laboratory Tests Test 07/21/19 17:16 07/22/19 05:51 07/22/19 06:00 07/22/19 13:11 Glucose (Fingerstick) 211 mg/dL (70-99) 209 mg/dL (70-99) 159 mg/dL (70-99) White Blood Count 15.7 x10^3/uL (4.0-11.0) Red Blood Count 2.57 x10^6/uL (3.50-5.40) Hemoglobin 8.2 g/dL (12.0-15.5) Hematocrit 25.8 % (36.0-47.0) Mean Corpuscular Volume 101 fL (79-100) Mean Corpuscular Hemoglobin 32 pg (25-35) Mean Corpuscular Hemoglobin Concent 32 g/dL (31-37) Red Cell Distribution Width 18.9 % (11.5-14.5) Platelet Count 233 x10^3/uL (140-400) Neutrophils (%) (Auto) 83 % (31-73) Lymphocytes (%) (Auto) 7 % (24-48) Monocytes (%) (Auto) 8 % (0-9) Eosinophils (%) (Auto) 2 % (0-3) Basophils (%) (Auto) 0 % (0-3) Neutrophils # (Auto) 13.0 x10^3/uL (1.8-7.7) Lymphocytes # (Auto) 1.1 x10^3/uL (1.0-4.8) Monocytes # (Auto) 1.2 x10^3/uL (0.0-1.1) Eosinophils # (Auto) 0.4 x10^3/uL (0.0-0.7) Basophils # (Auto) 0.1 x10^3/uL (0.0-0.2) Segmented Neutrophils % 58 % (35-66) Band Neutrophils % 19 % (0-9) Lymphocytes % 13 % (24-48) Monocytes % 4 % (0-10) Eosinophils % 4 % (0-5) Myelocytes % 2 % (0-0) Nucleated Red Blood Cells 2 Platelet Estimate Adequate (ADEQUATE) Giant Platelets Occ Anisocytosis Slight Sodium Level 141 mmol/L (136-145) Potassium Level 3.8 mmol/L (3.5-5.1) Chloride Level 107 mmol/L (98-107) Carbon Dioxide Level 20 mmol/L (21-32) Anion Gap 14 (6-14) Blood Urea Nitrogen 63 mg/dL (7-20) Creatinine 2.0 mg/dL (0.6-1.0) Estimated GFR (Cockcroft-Gault) 26.5 BUN/Creatinine Ratio 32 (6-20) Glucose Level 212 mg/dL (70-99) Calcium Level 8.0 mg/dL (8.5-10.1) Phosphorus Level 4.7 mg/dL (2.6-4.7) Magnesium Level 2.1 mg/dL (1.8-2.4) Total Bilirubin 0.9 mg/dL (0.2-1.0) Aspartate Amino Transf (AST/SGOT) 46 U/L (15-37) Alanine Aminotransferase (ALT/SGPT) 20 U/L (14-59) Alkaline Phosphatase 95 U/L (46-116) Total Protein 4.1 g/dL (6.4-8.2) Albumin 1.8 g/dL (3.4-5.0) Albumin/Globulin Ratio 0.8 (1.0-1.7) Lipase 823 U/L (73-393) Micro Micro Microbiology 07/12/19 Blood Culture - Final, Complete NO GROWTH AFTER 5 DAYS Review of Systems Constitutional: yes: other (ON THE VENT) Physical Exam General Appearance: other (ON THE VENT) Skin: warm Respiratory: decreased breath sounds Heart: S1S2 Abdomen: soft, bowel sounds present Genitourinary: bladder flat Extremities: pulses present, edema Neurology: other (SEDATED) Assessment Assessment IMP KFT-LSP-ESFIAE-OFF CRRT ANEMIA LEUCOCYTOSIS-IMPROVING ANASARCA DUE TO 3RD SPACING HYPERKALEMIA-RESOLVED ACIDOSIS AND ACIDEMIA-CONTROLLED ACUTE REPS FAILURE ACUTE PANCREATITIS HYPOALBUMINEMIA HYPOCALCEMIA-FROM SAPONIFICATION-BETTER POOR HD CATHETER FUNCTION PLAN TPN TO CONTINUE PRBC NEEDED TREAT LOW CA ONLY FOR ARRHYTHMIA OR SYMPTOMS CONT HIRAM OFF CRRT ATTEMPT TO FORCE DIURESE IHD TODAY AND DAILY FOR NOW ATTEMPT UF OF 3.5-4.0 LITERS VENT SUPPORT PRESSORS NEEDED ANTIBIOTICS CCT 31 WILL FOLLOW VERY POOR PROGNOSIS DONI GARCIA MD Jul 22, 2019 13:35
[2019-07-22] MEDS: TPN PER PHARMACY MC PRN (13:51)
--- NOTE | 2019-07-22 13:53 | NUR ---
Pharmacy TPN Dosing Note S: SCOTT AVILA is a 48 year old F currently receiving Central Continuous TPN started 07/06/19 B:Pertinent PMH: Necrotizing pancreatitis Height: 5 feet, 8 inches Weight: 112.5 kg Current diet: NPO LABS: Sodium: 141 Potassium: 3.8 Chloride: 107 Calcium: 8.0 Corrected Calcium: 9.28 Magnesium: 2.1 CO2: 20 SCr: 2 Glucose: 212, 159 Albumin: 2.4 AST: 46 ALT: 20 TPN FORMULA: TPN TYPE: Central Continuous AMINO ACIDS: 125 gm DEXTROSE: 195 gm LIPIDS: 40 gm SODIUM CHLORIDE: 90 mEq POTASSIUM CHLORIDE: 15 mEq POTASSIUM PHOSPHATE: 10 mmol MAGNESIUM: 8 mEq CALCIUM: 15 mEq INSULIN: 25 units MULTIPLE VITAMIN: 10 ml TRACE ELEMENTS: 0.5 ml TPN PLAN: -HD started today in lieu of CRRT. -Serum phos trending up, reduce KPhos to 10 mmol/day. -Serum glucose trending up, increase regular insulin to 25 units/day in TPN. -BMP, phos tomorrow. R: Continue TPN @ current rate and with above formula. Will monitor electrolytes, glucose, and tolerance to TPN. SHARON CHRISTIANSON [facility], 07/22/19 [id number]
--- NOTE | 2019-07-22 14:18 | NUR ---
SS following up with discharge planning. SS discussed with pt RN. Pt remains on the vent at this time. Pt on daily hemodialysis. Possible trach scheduled for 07/25/2019. SS will continue to follow for discharge planning.
--- NOTE | 2019-07-22 14:54 | PDOC ---
G I PROGRESS NOTE Subjective Out of room when rounded, not seen. Objective Others' notes reviewed. Physical Exam No PE. Review of Relevant I have reviewed the following items kolby (where applicable) has been applied. Labs Laboratory Tests Test 07/20/19 16:00 07/21/19 00:01 07/21/19 05:30 07/21/19 05:48 White Blood Count 22.6 x10^3/uL (4.0-11.0) Red Blood Count 2.75 x10^6/uL (3.50-5.40) Hemoglobin 8.9 g/dL (12.0-15.5) Hematocrit 26.9 % (36.0-47.0) Mean Corpuscular Volume 98 fL (79-100) Mean Corpuscular Hemoglobin 32 pg (25-35) Mean Corpuscular Hemoglobin Concent 33 g/dL (31-37) Red Cell Distribution Width 17.1 % (11.5-14.5) Platelet Count 257 x10^3/uL (140-400) Neutrophils (%) (Auto) 82 % (31-73) Lymphocytes (%) (Auto) 10 % (24-48) Monocytes (%) (Auto) 6 % (0-9) Eosinophils (%) (Auto) 2 % (0-3) Basophils (%) (Auto) 1 % (0-3) Neutrophils # (Auto) 18.5 x10^3/uL (1.8-7.7) Lymphocytes # (Auto) 2.2 x10^3/uL (1.0-4.8) Monocytes # (Auto) 1.3 x10^3/uL (0.0-1.1) Eosinophils # (Auto) 0.5 x10^3/uL (0.0-0.7) Basophils # (Auto) 0.1 x10^3/uL (0.0-0.2) Sodium Level 137 mmol/L (136-145) 138 mmol/L (136-145) 138 mmol/L (136-145) Potassium Level 3.9 mmol/L (3.5-5.1) 3.8 mmol/L (3.5-5.1) 3.7 mmol/L (3.5-5.1) Chloride Level 104 mmol/L (98-107) 105 mmol/L (98-107) 105 mmol/L (98-107) Carbon Dioxide Level 28 mmol/L (21-32) 27 mmol/L (21-32) 25 mmol/L (21-32) Anion Gap 5 (6-14) 6 (6-14) 8 (6-14) Blood Urea Nitrogen 30 mg/dL (7-20) 33 mg/dL (7-20) 38 mg/dL (7-20) Creatinine 1.1 mg/dL (0.6-1.0) 1.2 mg/dL (0.6-1.0) 1.3 mg/dL (0.6-1.0) Estimated GFR (Cockcroft-Gault) 52.8 47.7 43.5 Glucose Level 170 mg/dL (70-99) 173 mg/dL (70-99) 180 mg/dL (70-99) Calcium Level 8.2 mg/dL (8.5-10.1) 8.0 mg/dL (8.5-10.1) 8.0 mg/dL (8.5-10.1) Phosphorus Level 2.9 mg/dL (2.6-4.7) 3.2 mg/dL (2.6-4.7) 3.1 mg/dL (2.6-4.7) Magnesium Level 2.3 mg/dL (1.8-2.4) 2.0 mg/dL (1.8-2.4) 2.0 mg/dL (1.8-2.4) Glucose (Fingerstick) 168 mg/dL (70-99) Test 07/21/19 08:00 07/21/19 17:16 07/22/19 05:51 07/22/19 06:00 O2 Saturation 91 % (92-99) Arterial Blood pH 7.43 (7.35-7.45) Arterial Blood pCO2 at Patient Temp 31 mmHg (35-46) Arterial Blood pO2 at Patient Temp 65 mmHg (75-108) Arterial Blood HCO3 20 mmol/L (21-28) Arterial Blood Base Excess -3 mmol/L (-3-3) FiO2 30 Glucose (Fingerstick) 211 mg/dL (70-99) 209 mg/dL (70-99) White Blood Count 15.7 x10^3/uL (4.0-11.0) Red Blood Count 2.57 x10^6/uL (3.50-5.40) Hemoglobin 8.2 g/dL (12.0-15.5) Hematocrit 25.8 % (36.0-47.0) Mean Corpuscular Volume 101 fL (79-100) Mean Corpuscular Hemoglobin 32 pg (25-35) Mean Corpuscular Hemoglobin Concent 32 g/dL (31-37) Red Cell Distribution Width 18.9 % (11.5-14.5) Platelet Count 233 x10^3/uL (140-400) Neutrophils (%) (Auto) 83 % (31-73) Lymphocytes (%) (Auto) 7 % (24-48) Monocytes (%) (Auto) 8 % (0-9) Eosinophils (%) (Auto) 2 % (0-3) Basophils (%) (Auto) 0 % (0-3) Neutrophils # (Auto) 13.0 x10^3/uL (1.8-7.7) Lymphocytes # (Auto) 1.1 x10^3/uL (1.0-4.8) Monocytes # (Auto) 1.2 x10^3/uL (0.0-1.1) Eosinophils # (Auto) 0.4 x10^3/uL (0.0-0.7) Basophils # (Auto) 0.1 x10^3/uL (0.0-0.2) Segmented Neutrophils % 58 % (35-66) Band Neutrophils % 19 % (0-9) Lymphocytes % 13 % (24-48) Monocytes % 4 % (0-10) Eosinophils % 4 % (0-5) Myelocytes % 2 % (0-0) Nucleated Red Blood Cells 2 Platelet Estimate Adequate (ADEQUATE) Giant Platelets Occ Anisocytosis Slight Sodium Level 141 mmol/L (136-145) Potassium Level 3.8 mmol/L (3.5-5.1) Chloride Level 107 mmol/L (98-107) Carbon Dioxide Level 20 mmol/L (21-32) Anion Gap 14 (6-14) Blood Urea Nitrogen 63 mg/dL (7-20) Creatinine 2.0 mg/dL (0.6-1.0) Estimated GFR (Cockcroft-Gault) 26.5 BUN/Creatinine Ratio 32 (6-20) Glucose Level 212 mg/dL (70-99) Calcium Level 8.0 mg/dL (8.5-10.1) Phosphorus Level 4.7 mg/dL (2.6-4.7) Magnesium Level 2.1 mg/dL (1.8-2.4) Total Bilirubin 0.9 mg/dL (0.2-1.0) Aspartate Amino Transf (AST/SGOT) 46 U/L (15-37) Alanine Aminotransferase (ALT/SGPT) 20 U/L (14-59) Alkaline Phosphatase 95 U/L (46-116) Total Protein 4.1 g/dL (6.4-8.2) Albumin 1.8 g/dL (3.4-5.0) Albumin/Globulin Ratio 0.8 (1.0-1.7) Lipase 823 U/L (73-393) Test 07/22/19 13:11 Glucose (Fingerstick) 159 mg/dL (70-99) Laboratory Tests Test 07/21/19 17:16 07/22/19 05:51 07/22/19 06:00 07/22/19 13:11 Glucose (Fingerstick) 211 mg/dL (70-99) 209 mg/dL (70-99) 159 mg/dL (70-99) White Blood Count 15.7 x10^3/uL (4.0-11.0) Red Blood Count 2.57 x10^6/uL (3.50-5.40) Hemoglobin 8.2 g/dL (12.0-15.5) Hematocrit 25.8 % (36.0-47.0) Mean Corpuscular Volume 101 fL (79-100) Mean Corpuscular Hemoglobin 32 pg (25-35) Mean Corpuscular Hemoglobin Concent 32 g/dL (31-37) Red Cell Distribution Width 18.9 % (11.5-14.5) Platelet Count 233 x10^3/uL (140-400) Neutrophils (%) (Auto) 83 % (31-73) Lymphocytes (%) (Auto) 7 % (24-48) Monocytes (%) (Auto) 8 % (0-9) Eosinophils (%) (Auto) 2 % (0-3) Basophils (%) (Auto) 0 % (0-3) Neutrophils # (Auto) 13.0 x10^3/uL (1.8-7.7) Lymphocytes # (Auto) 1.1 x10^3/uL (1.0-4.8) Monocytes # (Auto) 1.2 x10^3/uL (0.0-1.1) Eosinophils # (Auto) 0.4 x10^3/uL (0.0-0.7) Basophils # (Auto) 0.1 x10^3/uL (0.0-0.2) Segmented Neutrophils % 58 % (35-66) Band Neutrophils % 19 % (0-9) Lymphocytes % 13 % (24-48) Monocytes % 4 % (0-10) Eosinophils % 4 % (0-5) Myelocytes % 2 % (0-0) Nucleated Red Blood Cells 2 Platelet Estimate Adequate (ADEQUATE) Giant Platelets Occ Anisocytosis Slight Sodium Level 141 mmol/L (136-145) Potassium Level 3.8 mmol/L (3.5-5.1) Chloride Level 107 mmol/L (98-107) Carbon Dioxide Level 20 mmol/L (21-32) Anion Gap 14 (6-14) Blood Urea Nitrogen 63 mg/dL (7-20) Creatinine 2.0 mg/dL (0.6-1.0) Estimated GFR (Cockcroft-Gault) 26.5 BUN/Creatinine Ratio 32 (6-20) Glucose Level 212 mg/dL (70-99) Calcium Level 8.0 mg/dL (8.5-10.1) Phosphorus Level 4.7 mg/dL (2.6-4.7) Magnesium Level 2.1 mg/dL (1.8-2.4) Total Bilirubin 0.9 mg/dL (0.2-1.0) Aspartate Amino Transf (AST/SGOT) 46 U/L (15-37) Alanine Aminotransferase (ALT/SGPT) 20 U/L (14-59) Alkaline Phosphatase 95 U/L (46-116) Total Protein 4.1 g/dL (6.4-8.2) Albumin 1.8 g/dL (3.4-5.0) Albumin/Globulin Ratio 0.8 (1.0-1.7) Lipase 823 U/L (73-393) Microbiology 07/12/19 Blood Culture - Final, Complete NO GROWTH AFTER 5 DAYS Vitals/I & O Vital Sign - Last 24 Hours 07/21/19 07/21/19 07/21/19 07/21/19 15:00 15:38 15:50 16:00 Temp 99.7 99.7 Pulse 88 81 Resp 25 B/P (MAP) 125/63 (83) 99/59 (72) Pulse Ox 100 100 100 O2 Delivery Ventilator Mechanical Ventilator Ventilator Ventilator 07/21/19 07/21/19 07/21/19 07/21/19 17:00 18:00 19:00 20:00 Pulse 81 80 79 Resp 25 B/P (MAP) 107/49 (68) 103/62 (76) 104/65 (78) Pulse Ox 100 100 100 O2 Delivery Ventilator Ventilator Ventilator Mechanical Ventilator 07/21/19 07/21/19 07/21/19 07/21/19 20:00 20:12 21:00 22:00 Temp 99.1 99.1 Pulse 66 79 79 Resp 25 B/P (MAP) 97/59 (72) 95/57 (70) 96/59 (71) Pulse Ox 100 100 100 100 O2 Delivery Ventilator Ventilator Ventilator Ventilator 07/21/19 07/21/19 07/21/19 07/21/19 23:00 23:31 23:59 23:59 Temp 99.4 99.4 Pulse 77 77 Resp B/P (MAP) 102/62 (75) 96/59 (71) Pulse Ox 100 100 98 O2 Delivery Ventilator Ventilator Ventilator Mechanical Ventilator 07/22/19 07/22/19 07/22/19 07/22/19 01:00 02:00 03:00 04:00 Temp 99.8 99.8 Pulse 78 77 78 79 Resp 22 25 B/P (MAP) 101/59 (73) 105/59 (74) 108/62 (77) 98/60 (73) Pulse Ox 100 100 100 100 O2 Delivery Ventilator Ventilator Ventilator Ventilator 07/22/19 07/22/19 07/22/19 07/22/19 04:00 04:05 04:40 05:00 Pulse 78 Resp B/P (MAP) 102/56 (71) Pulse Ox 99 100 99 O2 Delivery Mechanical Ventilator Ventilator Ventilator O2 Flow Rate 6.0 07/22/19 07/22/19 07/22/19 07/22/19 05:12 06:00 07:00 08:00 Temp 99.6 99.6 Pulse 76 73 80 Resp 24 25 25 B/P (MAP) 98/52 (67) 92/53 (66) 114/65 (81) Pulse Ox 100 100 99 99 O2 Delivery Ventilator Ventilator Ventilator O2 Flow Rate 6.0 07/22/19 07/22/19 07/22/19 07/22/19 08:00 09:00 09:02 10:00 Pulse 84 82 Resp 25 25 B/P (MAP) 85/54 (64) 98/63 (75) Pulse Ox 99 99 100 O2 Delivery Mechanical Ventilator Ventilator Ventilator Ventilator 07/22/19 07/22/19 07/22/19 07/22/19 11:00 11:47 12:00 12:23 Pulse 81 77 Resp 25 25 B/P (MAP) 121/68 (85) 93/61 (72) Pulse Ox 99 99 99 O2 Delivery Ventilator Ventilator Ventilator Mechanical Ventilator 07/22/19 07/22/19 13:00 14:00 Temp 99.0 99.0 Pulse 84 83 Resp 25 25 B/P (MAP) 133/72 (92) 87/45 (59) Pulse Ox 100 100 O2 Delivery Ventilator Ventilator Intake and Output 07/21/19 07/21/19 07/22/19 15:00 23:00 07:00 Intake Total 250 ml 981 ml 949 ml Output Total 230 ml 565 ml 535 ml Balance 20 ml 416 ml 414 ml Problem List Problems Medical Problems: (1) Acute pancreatitis Status: Acute (2) Cholelithiasis Status: Acute Assessment Biliary pancreatitis, severe, with MOSF. Plan of Care Note Continue support. If improves, ultimately needs cholecystectomy. Hemodynamically unstable?: No Is patient in severe pain?: No Is NPO status required?: Yes MARY RIVAS MD Jul 22, 2019 14:54
[2019-07-22 15:45] LABS: BASE EXCESS ABG 1 mmol/L (-3-3); HCO3 ABG 23 mmol/L (21-28); PCO2 ABG 27 mmHg (35-46); PO2 ABG 99 mmHg (75-108); SAT O2 ABG 97 % (92-99)
[2019-07-22 15:47] LABS: FIO2 ABG 40
--- NOTE | 2019-07-22 18:00 | NUR ---
pt moved to pacu/icu per icu bed. pt rotated to supine position. pt breathing along with ventilator. abg's wnl today. levophed continues to infuse titrated as per bp. dialysis scheduled for daily. attempted to call family to update about daily care and to inform of room change. only able to leave message on [employer] phone.
--- NOTE | 2019-07-22 19:25 | PDOC ---
PROGRESS NOTES Chief Complaint Chief Complaint Respiratory failure requiring mechanical ventilation Severe Acute gallstone pancreatitis (not a surgical candidate at this time) with necrosis Acute kidney failure now requiring dialysis Salpingitis Gallstones (Calculus of gallbladder with acute cholecystitis without obstruction) HTN Leukocytosis Hypoxia Uterine fibroid Hypoxia with respiratory failure Intractable pain Intractable nausea Covid 19 negative. Acute on chronic anemia will have to follow up since there is suspicion for hemorrhagic fluid in pelvis Plan: continue supportive measures grim prognosis discussed with cardiovascular surgical tech planning of trach for thursday if unable to extubate History of Present Illness History of Present Illness 07/22/2019 No new changes remains critically ill, off CRRT, still planning for trach on Thursday unless we manage to wean over the weekend 07/21/2019 Continues to remain critically ill. The patient unable to be taken off ventilatory support as of yet., Discussed with pulmonary human resource consultant. Planning all tracheostomy on Thursday if he is unable to be weaned off vent 07/20/2019 No acute events reported overnight, no fever or chills, remains critically stable, discussed with mother at bedside. [id number] Patient seen and examined in the ICU She is critically ill Mechanically ventilated Assist-control/25/450/30 with 8 of PEEP She is on cefepime daptomycin Flagyl and micafungin GEN for antibiotic coverage Also getting TPN and CRRT Sedated with Versed Getting IV albumin also She is tachycardic at 112 bpm Temp max 100.0 White blood count is down from 45,000 35,000 today Chart reviewed Discussed with RN [id number] Patient seen and examined in the ICU She remains very critically ill Going for a CT of the abdomen chest and pelvis Ventilated : On assist control 40% FiO2 Discussed with RN Chart reviewed [id number] Patient seen and examined in the ICU She is still on CRRT although we plan to change to hemodialysis soon Chart reviewed Discussed with RN Hemoglobin down to 6.9 (suspect CRRT related , Will let nephrology consider transfusion while on dialysis) [id number] Patient seen and examined in the ICU She is mechanically ventilated Before meals/25/450/30% Also on CRRT Very critically ill Chart reviewed Discussed with RN [id number] Patient seen and examined in the ICU She is now been transferred to the Covid 19 unit so we can rule out Covid and keep her in isolation Very critically ill Intubated and ventilated Assist control 40% Chart reviewed Discussed with RN Still on CRRT Getting a chest x-ray now Very concerned about her prognosis [id number] Patient seen and examined in the ICU She is extremely critically ill Remains mechanically ventilated with assist control/25/450/40% Also on continuous renal replacement therapy Chart reviewed Discussed with RN She has TPN hanging Also on pressors [id number] Patient seen and examined in the ICU She is still requiring CRRT On the vent with assist control but her FiO2 is down to 40% from yesterday Slightly better but still very critically ill Discussed with RN Chart reviewed [id number] Patient seen and examined in the ICU She remains extremely critically ill On IV fentanyl IV Versed IV Doxy On the vent Assist-control/25/450/70% She is critically ill Discussed with RN Chart reviewed Patient is currently on CRRT as well [id number] Patient seen and examined in the ICU She had to be intubated this morning On assist-control 25/450/100% with 10 of PEEP and only satting 87% She is extremely critically ill I'm not sure if she will survive Chart reviewed Discussed with RN Ms Diaz is a 48yo F w/ PMHx HTN, prediabetes who presents the emergency room complaints of abdominal pain. Patient described off and on 3 days. She states is constant, described as a squeezing sensation in a band-like distribution. + nausea, vomiting. She denies any fever or diarrhea. Patient denies any abdominal surgical procedures. She states is worse with movements, car ride. Pain initially was upper abdomen however now pretty much generalized. Last bowel movement was 07/03/2019. Nothing makes her pain better. Patient denies any shortness of breath. She does state the pain moves into her chest. Denies any headache or visual changes. Lipase 67581, AST 401, ALT 249, Bilirubin 1.4. CT abdomen confirms pancreatic inflammation, peripancreatic fluid and inflammatory changes around the pancreas consistent with pancreatitis. Cholelithiasis and 1.4cm uterine fibroid as well as possible left salpingitis. Admitted for further care GI, General surgery, ID, Pulm consulted. 07/04: Overnight per report no urine output. Added dilaudid for pain, PICC placed per IR. Renal US negative.Seen bedside in ICU, given 2L additional NSS and albumin infusion. Still hypotensive, started on levophed. Repeat CT abdomen with necrosis. Updated her fiancee 07/05: Sats are only 87% on nasal cannula oxygen. Dialysis catheter per nephrology 07/06: She is now on BiPAP appears more ill, now on dialysis 07/07: Seen on BiPAP. Her mother and another family member are present and seemed to be good support for her. Currently on dialysis. Appears critically ill 07/08: Overnight Tmax 101.7 , still on BiPAP FiO2 40%, still on low dose Levophed gtt, TPN initiated. On dialysis Overnight still febrile. Dialysis today. She wakes up and responds to pain. No CP. Vitals Vitals Vital Signs Date Time Temp Pulse Resp B/P (MAP) Pulse Ox O2 Delivery O2 Flow Rate FiO2 07/22/19 18:00 84 25 103/62 (76) 100 Ventilator 07/22/19 15:00 99.1 99.1 07/22/19 05:12 6.0 Physical Exam Physical Exam GENERAL: Orally intubated/sedated - generalizd anasarca HEENT: Mild icterus, pupils equal, ETT, NGT NECK: Supple. LUNGS: Decreased breath sounds at the bases. HEART: S1, S2, regular ABDOMEN: Distended, hypoactive BS, Rectal tube in place : Lind EXTREMITIES: Generalized edema, no cyanosis - some mottling, Rooke boots bilaterally DERMATOLOGIC: Warm and dry. No generalized rash. CENTRAL NERVOUS SYSTEM: Sedated RIJ Temp HDC, RUE-PICC & LIJ - clean General: Other (sedated ) Heart: Other (increased rate) Lungs: Other (decrease bs) Abdomen: Other (distended, softer) Extremities: No edema, Other (SOME CLUBBING ) Skin: Other (mottling noted to extremities ) Labs LABS Laboratory Tests Test 07/22/19 05:51 07/22/19 06:00 07/22/19 13:11 07/22/19 15:30 Glucose (Fingerstick) 209 mg/dL (70-99) 159 mg/dL (70-99) White Blood Count 15.7 x10^3/uL (4.0-11.0) Red Blood Count 2.57 x10^6/uL (3.50-5.40) Hemoglobin 8.2 g/dL (12.0-15.5) Hematocrit 25.8 % (36.0-47.0) Mean Corpuscular Volume 101 fL (79-100) Mean Corpuscular Hemoglobin 32 pg (25-35) Mean Corpuscular Hemoglobin Concent 32 g/dL (31-37) Red Cell Distribution Width 18.9 % (11.5-14.5) Platelet Count 233 x10^3/uL (140-400) Neutrophils (%) (Auto) 83 % (31-73) Lymphocytes (%) (Auto) 7 % (24-48) Monocytes (%) (Auto) 8 % (0-9) Eosinophils (%) (Auto) 2 % (0-3) Basophils (%) (Auto) 0 % (0-3) Neutrophils # (Auto) 13.0 x10^3/uL (1.8-7.7) Lymphocytes # (Auto) 1.1 x10^3/uL (1.0-4.8) Monocytes # (Auto) 1.2 x10^3/uL (0.0-1.1) Eosinophils # (Auto) 0.4 x10^3/uL (0.0-0.7) Basophils # (Auto) 0.1 x10^3/uL (0.0-0.2) Segmented Neutrophils % 58 % (35-66) Band Neutrophils % 19 % (0-9) Lymphocytes % 13 % (24-48) Monocytes % 4 % (0-10) Eosinophils % 4 % (0-5) Myelocytes % 2 % (0-0) Nucleated Red Blood Cells 2 Platelet Estimate Adequate (ADEQUATE) Giant Platelets Occ Anisocytosis Slight Sodium Level 141 mmol/L (136-145) Potassium Level 3.8 mmol/L (3.5-5.1) Chloride Level 107 mmol/L (98-107) Carbon Dioxide Level 20 mmol/L (21-32) Anion Gap 14 (6-14) Blood Urea Nitrogen 63 mg/dL (7-20) Creatinine 2.0 mg/dL (0.6-1.0) Estimated GFR (Cockcroft-Gault) 26.5 BUN/Creatinine Ratio 32 (6-20) Glucose Level 212 mg/dL (70-99) Calcium Level 8.0 mg/dL (8.5-10.1) Phosphorus Level 4.7 mg/dL (2.6-4.7) Magnesium Level 2.1 mg/dL (1.8-2.4) Total Bilirubin 0.9 mg/dL (0.2-1.0) Aspartate Amino Transf (AST/SGOT) 46 U/L (15-37) Alanine Aminotransferase (ALT/SGPT) 20 U/L (14-59) Alkaline Phosphatase 95 U/L (46-116) Total Protein 4.1 g/dL (6.4-8.2) Albumin 1.8 g/dL (3.4-5.0) Albumin/Globulin Ratio 0.8 (1.0-1.7) Lipase 823 U/L (73-393) O2 Saturation 97 % (92-99) Arterial Blood pH 7.55 (7.35-7.45) Arterial Blood pCO2 at Patient Temp 27 mmHg (35-46) Arterial Blood pO2 at Patient Temp 99 mmHg (75-108) Arterial Blood HCO3 23 mmol/L (21-28) Arterial Blood Base Excess 1 mmol/L (-3-3) FiO2 40 Test 07/22/19 16:57 Glucose (Fingerstick) 185 mg/dL (70-99) Assessment and Plan Assessmemt and Plan Problems Medical Problems: (1) Acute pancreatitis Status: Acute (2) Cholelithiasis Status: Acute Comment Review of Relevant I have reviewed the following items kolby (where applicable) has been applied. Labs Laboratory Tests Test 07/21/19 00:01 07/21/19 05:30 07/21/19 05:48 07/21/19 08:00 Sodium Level 138 mmol/L (136-145) 138 mmol/L (136-145) Potassium Level 3.8 mmol/L (3.5-5.1) 3.7 mmol/L (3.5-5.1) Chloride Level 105 mmol/L (98-107) 105 mmol/L (98-107) Carbon Dioxide Level 27 mmol/L (21-32) 25 mmol/L (21-32) Anion Gap 6 (6-14) 8 (6-14) Blood Urea Nitrogen 33 mg/dL (7-20) 38 mg/dL (7-20) Creatinine 1.2 mg/dL (0.6-1.0) 1.3 mg/dL (0.6-1.0) Estimated GFR (Cockcroft-Gault) 47.7 43.5 Glucose Level 173 mg/dL (70-99) 180 mg/dL (70-99) Calcium Level 8.0 mg/dL (8.5-10.1) 8.0 mg/dL (8.5-10.1) Phosphorus Level 3.2 mg/dL (2.6-4.7) 3.1 mg/dL (2.6-4.7) Magnesium Level 2.0 mg/dL (1.8-2.4) 2.0 mg/dL (1.8-2.4) Glucose (Fingerstick) 168 mg/dL (70-99) O2 Saturation 91 % (92-99) Arterial Blood pH 7.43 (7.35-7.45) Arterial Blood pCO2 at Patient Temp 31 mmHg (35-46) Arterial Blood pO2 at Patient Temp 65 mmHg (75-108) Arterial Blood HCO3 20 mmol/L (21-28) Arterial Blood Base Excess -3 mmol/L (-3-3) FiO2 30 Test 07/21/19 17:16 07/22/19 05:51 07/22/19 06:00 07/22/19 13:11 Glucose (Fingerstick) 211 mg/dL (70-99) 209 mg/dL (70-99) 159 mg/dL (70-99) White Blood Count 15.7 x10^3/uL (4.0-11.0) Red Blood Count 2.57 x10^6/uL (3.50-5.40) Hemoglobin 8.2 g/dL (12.0-15.5) Hematocrit 25.8 % (36.0-47.0) Mean Corpuscular Volume 101 fL (79-100) Mean Corpuscular Hemoglobin 32 pg (25-35) Mean Corpuscular Hemoglobin Concent 32 g/dL (31-37) Red Cell Distribution Width 18.9 % (11.5-14.5) Platelet Count 233 x10^3/uL (140-400) Neutrophils (%) (Auto) 83 % (31-73) Lymphocytes (%) (Auto) 7 % (24-48) Monocytes (%) (Auto) 8 % (0-9) Eosinophils (%) (Auto) 2 % (0-3) Basophils (%) (Auto) 0 % (0-3) Neutrophils # (Auto) 13.0 x10^3/uL (1.8-7.7) Lymphocytes # (Auto) 1.1 x10^3/uL (1.0-4.8) Monocytes # (Auto) 1.2 x10^3/uL (0.0-1.1) Eosinophils # (Auto) 0.4 x10^3/uL (0.0-0.7) Basophils # (Auto) 0.1 x10^3/uL (0.0-0.2) Segmented Neutrophils % 58 % (35-66) Band Neutrophils % 19 % (0-9) Lymphocytes % 13 % (24-48) Monocytes % 4 % (0-10) Eosinophils % 4 % (0-5) Myelocytes % 2 % (0-0) Nucleated Red Blood Cells 2 Platelet Estimate Adequate (ADEQUATE) Giant Platelets Occ Anisocytosis Slight Sodium Level 141 mmol/L (136-145) Potassium Level 3.8 mmol/L (3.5-5.1) Chloride Level 107 mmol/L (98-107) Carbon Dioxide Level 20 mmol/L (21-32) Anion Gap 14 (6-14) Blood Urea Nitrogen 63 mg/dL (7-20) Creatinine 2.0 mg/dL (0.6-1.0) Estimated GFR (Cockcroft-Gault) 26.5 BUN/Creatinine Ratio 32 (6-20) Glucose Level 212 mg/dL (70-99) Calcium Level 8.0 mg/dL (8.5-10.1) Phosphorus Level 4.7 mg/dL (2.6-4.7) Magnesium Level 2.1 mg/dL (1.8-2.4) Total Bilirubin 0.9 mg/dL (0.2-1.0) Aspartate Amino Transf (AST/SGOT) 46 U/L (15-37) Alanine Aminotransferase (ALT/SGPT) 20 U/L (14-59) Alkaline Phosphatase 95 U/L (46-116) Total Protein 4.1 g/dL (6.4-8.2) Albumin 1.8 g/dL (3.4-5.0) Albumin/Globulin Ratio 0.8 (1.0-1.7) Lipase 823 U/L (73-393) Test 07/22/19 15:30 07/22/19 16:57 O2 Saturation 97 % (92-99) Arterial Blood pH 7.55 (7.35-7.45) Arterial Blood pCO2 at Patient Temp 27 mmHg (35-46) Arterial Blood pO2 at Patient Temp 99 mmHg (75-108) Arterial Blood HCO3 23 mmol/L (21-28) Arterial Blood Base Excess 1 mmol/L (-3-3) FiO2 40 Glucose (Fingerstick) 185 mg/dL (70-99) Laboratory Tests Test 07/22/19 05:51 07/22/19 06:00 07/22/19 13:11 07/22/19 15:30 Glucose (Fingerstick) 209 mg/dL (70-99) 159 mg/dL (70-99) White Blood Count 15.7 x10^3/uL (4.0-11.0) Red Blood Count 2.57 x10^6/uL (3.50-5.40) Hemoglobin 8.2 g/dL (12.0-15.5) Hematocrit 25.8 % (36.0-47.0) Mean Corpuscular Volume 101 fL (79-100) Mean Corpuscular Hemoglobin 32 pg (25-35) Mean Corpuscular Hemoglobin Concent 32 g/dL (31-37) Red Cell Distribution Width 18.9 % (11.5-14.5) Platelet Count 233 x10^3/uL (140-400) Neutrophils (%) (Auto) 83 % (31-73) Lymphocytes (%) (Auto) 7 % (24-48) Monocytes (%) (Auto) 8 % (0-9) Eosinophils (%) (Auto) 2 % (0-3) Basophils (%) (Auto) 0 % (0-3) Neutrophils # (Auto) 13.0 x10^3/uL (1.8-7.7) Lymphocytes # (Auto) 1.1 x10^3/uL (1.0-4.8) Monocytes # (Auto) 1.2 x10^3/uL (0.0-1.1) Eosinophils # (Auto) 0.4 x10^3/uL (0.0-0.7) Basophils # (Auto) 0.1 x10^3/uL (0.0-0.2) Segmented Neutrophils % 58 % (35-66) Band Neutrophils % 19 % (0-9) Lymphocytes % 13 % (24-48) Monocytes % 4 % (0-10) Eosinophils % 4 % (0-5) Myelocytes % 2 % (0-0) Nucleated Red Blood Cells 2 Platelet Estimate Adequate (ADEQUATE) Giant Platelets Occ Anisocytosis Slight Sodium Level 141 mmol/L (136-145) Potassium Level 3.8 mmol/L (3.5-5.1) Chloride Level 107 mmol/L (98-107) Carbon Dioxide Level 20 mmol/L (21-32) Anion Gap 14 (6-14) Blood Urea Nitrogen 63 mg/dL (7-20) Creatinine 2.0 mg/dL (0.6-1.0) Estimated GFR (Cockcroft-Gault) 26.5 BUN/Creatinine Ratio 32 (6-20) Glucose Level 212 mg/dL (70-99) Calcium Level 8.0 mg/dL (8.5-10.1) Phosphorus Level 4.7 mg/dL (2.6-4.7) Magnesium Level 2.1 mg/dL (1.8-2.4) Total Bilirubin 0.9 mg/dL (0.2-1.0) Aspartate Amino Transf (AST/SGOT) 46 U/L (15-37) Alanine Aminotransferase (ALT/SGPT) 20 U/L (14-59) Alkaline Phosphatase 95 U/L (46-116) Total Protein 4.1 g/dL (6.4-8.2) Albumin 1.8 g/dL (3.4-5.0) Albumin/Globulin Ratio 0.8 (1.0-1.7) Lipase 823 U/L (73-393) O2 Saturation 97 % (92-99) Arterial Blood pH 7.55 (7.35-7.45) Arterial Blood pCO2 at Patient Temp 27 mmHg (35-46) Arterial Blood pO2 at Patient Temp 99 mmHg (75-108) Arterial Blood HCO3 23 mmol/L (21-28) Arterial Blood Base Excess 1 mmol/L (-3-3) FiO2 40 Test 07/22/19 16:57 Glucose (Fingerstick) 185 mg/dL (70-99) Microbiology 07/12/19 Blood Culture - Final, Complete NO GROWTH AFTER 5 DAYS Medications Current Medications Sodium Chloride 1,000 ml @ 1,000 mls/hr Q1H IV Last administered on 07/04/19at 03:00; Start 07/04/19 at 03:00; Stop 07/04/19 at 03:59; Status DC Ondansetron HCl (Zofran) 4 mg 1X ONCE IVP Last administered on 07/04/19at 03:27; Start 07/04/19 at 03:00; Stop 07/04/19 at 03:01; Status DC Morphine Sulfate (Morphine Sulfate) 4 mg 1X ONCE IV ; Start 07/04/19 at 03:00; Stop 07/04/19 at 03:01; Status Cancel Ketorolac Tromethamine (Toradol 30mg Vial) 30 mg 1X ONCE IV Last administered on 07/04/19at 02:54; Start 07/04/19 at 03:00; Stop 07/04/19 at 03:01; Status DC Fentanyl Citrate (Fentanyl 2ml Vial) 25 mcg 1X ONCE IVP Last administered on 07/04/19at 03:23; Start 07/04/19 at 03:30; Stop 07/04/19 at 03:31; Status DC Fentanyl Citrate (Fentanyl 2ml Vial) 100 mcg STK-MED ONCE .ROUTE ; Start 07/04/19 at 03:18; Stop 07/04/19 at 03:18; Status DC Iohexol (Omnipaque 350 Mg/ml) 90 ml 1X ONCE IV Last administered on 07/04/19at 03:25; Start 07/04/19 at 03:30; Stop 07/04/19 at 03:31; Status DC Info (CONTRAST GIVEN -- Rx MONITORING) 1 each PRN DAILY PRN MC SEE COMMENTS; Start 07/04/19 at 03:30; Stop 07/06/19 at 03:29; Status DC Hydromorphone HCl (Dilaudid) 0.5 mg 1X ONCE IV Last administered on 07/04/19at 03:55; Start 07/04/19 at 04:30; Stop 07/04/19 at 04:32; Status DC Ondansetron HCl (Zofran) 4 mg PRN Q8HRS PRN IV NAUSEA/VOMITING 1ST CHOICE; Start 07/04/19 at 05:00; Stop 07/04/19 at 09:27; Status DC Morphine Sulfate (Morphine Sulfate) 2 mg PRN Q2HR PRN IV SEVERE PAIN 7-10 Last administered on 07/05/19at 12:26; Start 07/04/19 at 05:00; Stop 07/05/19 at 14:15; Status DC Sodium Chloride 1,000 ml @ 125 mls/hr Q8H IV Last administered on 07/04/19at 20:56; Start 07/04/19 at 05:00; Stop 07/05/19 at 04:59; Status DC Hydromorphone HCl (Dilaudid) 0.5 mg PRN Q3HRS PRN IV SEVERE PAIN 7-10 Last administered on 07/05/19at 10:06; Start 07/04/19 at 05:00; Stop 07/05/19 at 12:01; Status DC Piperacillin Sod/ Tazobactam Sod 4.5 gm/Sodium Chloride 100 ml @ 200 mls/hr 1X ONCE IV Last administered on 07/04/19at 05:44; Start 07/04/19 at 06:00; Stop 07/04/19 at 06:29; Status DC Ondansetron HCl (Zofran) 4 mg PRN Q4HRS PRN IV NAUSEA/VOMITING 1ST CHOICE Last administered on 07/09/19at 16:15; Start 07/04/19 at 09:30 Insulin Human Lispro (HumaLOG) 0-9 UNITS Q6HRS SQ Last administered on 07/22/19at 17:04; Start 07/04/19 at 09:30 Dextrose (Dextrose 50%-Water Syringe) 12.5 gm PRN Q15MIN PRN IV SEE COMMENTS; Start 07/04/19 at 09:30 Pantoprazole Sodium (PROTONIX VIAL for IV PUSH) 40 mg DAILYAC IVP Last administered on 07/22/19at 07:49; Start 07/04/19 at 11:30 Prochlorperazine Edisylate (Compazine) 10 mg PRN Q6HRS PRN IV NAUSEA/VOMITING, 2nd CHOICE Last administered on 07/05/19at 00:42; Start 07/04/19 at 17:45 Atenolol (Tenormin) 100 mg DAILY PO ; Start 07/05/19 at 09:00; Stop 07/04/19 at 20:08; Status DC Metoprolol Tartrate (Lopressor Vial) 2.5 mg Q6HRS IVP Last administered on 07/05/19at 05:51; Start 07/04/19 at 20:15; Stop 07/05/19 at 10:02; Status DC Metoprolol Tartrate (Lopressor Vial) 5 mg Q6HRS IVP Last administered on 07/14/19at 00:12; Start 07/05/19 at 10:15; Stop 07/16/19 at 08:48; Status DC Hydromorphone HCl (Dilaudid) 1 mg PRN Q3HRS PRN IV SEVERE PAIN 7-10 Last administered on 07/11/19at 05:13; Start 07/05/19 at 12:00; Stop 07/19/19 at 00:25; Status DC Lidocaine HCl (Buffered Lidocaine 1%) 3 ml STK-MED ONCE .ROUTE ; Start 07/05/19 at 12:55; Stop 07/05/19 at 12:56; Status DC Albumin Human 500 ml @ 125 mls/hr 1X ONCE IV Last administered on 07/05/19at 14:33; Start 07/05/19 at 14:30; Stop 07/05/19 at 18:32; Status DC Norepinephrine Bitartrate 8 mg/ Dextrose 258 ml @ 17.299 mls/ hr CONT PRN IV PER PROTOCOL Last administered on 07/22/19at 07:51; Start 07/05/19 at 15:30 Sodium Chloride 1,000 ml @ 125 mls/hr Q8H IV Last administered on 07/05/19at 21:04; Start 07/05/19 at 16:00; Stop 07/06/19 at 02:42; Status DC Albumin Human 500 ml @ 125 mls/hr PRN BID PRN IV After every 2L NSS & BP < 90mm Last administered on 07/20/19at 14:21; Start 07/05/19 at 16:00 Iohexol (Omnipaque 300 Mg/ml) 60 ml 1X ONCE IV Last administered on 07/05/19at 17:20; Start 07/05/19 at 17:00; Stop 07/05/19 at 17:01; Status DC Info (CONTRAST GIVEN -- Rx MONITORING) 1 each PRN DAILY PRN MC SEE COMMENTS; Start 07/05/19 at 17:00; Stop 07/07/19 at 16:59; Status DC Meropenem 1 gm/ Sodium Chloride 100 ml @ 200 mls/hr Q8HRS IV Last administered on 07/06/19at 05:45; Start 07/05/19 at 20:00; Stop 07/06/19 at 08:48; Status DC Furosemide (Lasix) 40 mg 1X ONCE IVP Last administered on 07/05/19at 22:12; Start 07/05/19 at 22:30; Stop 07/05/19 at 22:31; Status DC Calcium Chloride 1000 mg/Sodium Chloride 110 ml @ 220 mls/hr 1X ONCE IV Last administered on 07/05/19at 22:11; Start 07/05/19 at 22:30; Stop 07/05/19 at 22:59; Status DC Albuterol Sulfate (Ventolin Neb Soln) 2.5 mg 1X ONCE NEB Last administered on 07/06/19at 00:56; Start 07/05/19 at 22:30; Stop 07/05/19 at 22:31; Status DC Insulin Human Regular (HumuLIN R VIAL) 5 unit 1X ONCE IV Last administered on 07/05/19at 22:14; Start 07/05/19 at 22:30; Stop 07/05/19 at 22:31; Status DC Magnesium Sulfate 50 ml @ 25 mls/hr 1X ONCE IV Last administered on 07/06/19at 02:57; Start 07/06/19 at 03:00; Stop 07/06/19 at 04:59; Status DC Calcium Gluconate 1000 mg/Sodium Chloride 110 ml @ 220 mls/hr 1X ONCE IV Last administered on 07/06/19at 02:46; Start 07/06/19 at 03:00; Stop 07/06/19 at 03:29; Status DC Sodium Chloride 1,000 ml @ 200 mls/hr Q5H IV Last administered on 07/06/19at 02:46; Start 07/06/19 at 03:00; Stop 07/06/19 at 10:21; Status DC Calcium Gluconate 1000 mg/Sodium Chloride 110 ml @ 220 mls/hr 1X ONCE IV Last administered on 07/06/19at 03:21; Start 07/06/19 at 03:30; Stop 07/06/19 at 0 3:59; Status DC Sodium Bicarbonate 50 meq/Sodium Chloride 1,050 ml @ 75 mls/hr Q14H IV Last administered on 07/10/19at 21:10; Start 07/06/19 at 07:30; Stop 07/11/19 at 10:28; Status DC Calcium Gluconate 2000 mg/Sodium Chloride 120 ml @ 220 mls/hr 1X ONCE IV Last administered on 07/06/19at 09:05; Start 07/06/19 at 07:30; Stop 07/06/19 at 08:02; Status DC Lidocaine HCl (Xylocaine-Mpf 1% 2ml Vial) 2 ml STK-MED ONCE .ROUTE ; Start 07/06/19 at 08:47; Stop 07/06/19 at 08:47; Status DC Meropenem 500 mg/ Sodium Chloride 50 ml @ 100 mls/hr Q12HR IV Last administered on 07/11/19at 21:01; Start 07/06/19 at 18:00; Stop 07/12/19 at 07:58 ; Status DC Lidocaine HCl (Buffered Lidocaine 1%) 3 ml STK-MED ONCE .ROUTE ; Start 07/06/19 at 09:46; Stop 07/06/19 at 09:46; Status DC Lidocaine HCl (Buffered Lidocaine 1%) 6 ml 1X ONCE INJ Last administered on 07/06/19at 10:26; Start 07/06/19 at 10:15; Stop 07/06/19 at 10:16; Status DC Info (Tpn Per Pharmacy) 1 each PRN DAILY PRN MC SEE COMMENTS Last administered on 07/22/19at 13:51; Start 07/06/19 at 12:00 Sodium Chloride 1,000 ml @ 1,000 mls/hr Q1H PRN IV hypotension; Start 07/06/19 at 12:07; Stop 07/06/19 at 18:06; Status DC Diphenhydramine HCl (Benadryl) 25 mg 1X PRN PRN IV ITCHING; Start 07/06/19 at 12:15; Stop 07/07/19 at 12:14; Status DC Diphenhydramine HCl (Benadryl) 25 mg 1X PRN PRN IV ITCHING; Start 07/06/19 at 12:15; Stop 07/07/19 at 12:14; Status DC Sodium Chloride 1,000 ml @ 400 mls/hr Q2H30M PRN IV PATENCY; Start 07/06/19 at 12:07; Stop 07/07/19 at 00:06; Status DC Info (PHARMACY MONITORING -- do not chart) 1 each PRN DAILY PRN MC SEE COMMENTS; Start 07/06/19 at 12:15; Stop 07/08/19 at 08:13; Status DC Sodium Chloride 90 meq/Calcium Gluconate 10 meq/ Multivitamins 10 ml/Chromium/ Copper/Manganese/ Seleni/Zn 1 ml/ Total Parenteral Nutrition/Amino Acids/Dextrose/ Fat Emulsion Intravenous 55.005 ml @ 2.292 mls/hr TPN CONT IV ; Start 07/06/19 at 22:00; Stop 07/06/19 at 12:33; Status DC Info (Tpn Per Pharmacy) 1 each PRN DAILY PRN MC SEE COMMENTS; Start 07/06/19 at 12:30; Status UNV Sodium Chloride 90 meq/Calcium Gluconate 10 meq/ Multivitamins 10 ml/Chromium/ Copper/Manganese/ Seleni/Zn 0.5 ml/ Total Parenteral Nutrition/Amino Acids/Dextrose/ Fat Emulsion Intravenous 1,512 ml @ 63 mls/hr TPN CONT IV Last administered on 07/06/19at 22:06; Start 07/06/19 at 22:00; Stop 07/07/19 at 21:59; Status DC Calcium Carbonate/ Glycine (Tums) 500 mg PRN AFTMEALHC PRN PO INDIGESTION; Start 07/06/19 at 17:45 Calcium Gluconate (Calcium Gluconate) 2,000 mg 1X ONCE IVP Last administered on 07/07/19at 02:19; Start 07/07/19 at 02:15; Stop 07/07/19 at 02:16; Status DC Calcium Chloride 3000 mg/Sodium Chloride 1,030 ml @ 50 mls/hr [id number] IV Last administered on 07/09/19at 02:17; Start 07/07/19 at 08:00; Stop 07/09/19 at 15:2 3; Status DC Lorazepam (Ativan Inj) 1 mg PRN Q4HRS PRN IVP ANXIETY / AGITATION Last administered on 07/11/19at 00:34; Start 07/07/19 at 09:00 Sodium Chloride 1,000 ml @ 1,000 mls/hr Q1H PRN IV hypotension; Start 07/07/19 at 08:56; Stop 07/07/19 at 14:55; Status DC Albumin Human 200 ml @ 200 mls/hr 1X PRN PRN IV Hypotension; Start 07/07/19 at 09:00; Stop 07/07/19 at 14:59; Status DC Diphenhydramine HCl (Benadryl) 25 mg 1X PRN PRN IV ITCHING; Start 07/07/19 at 09:00; Stop 07/08/19 at 08:59; Status DC Diphenhydramine HCl (Benadryl) 25 mg 1X PRN PRN IV ITCHING; Start 07/07/19 at 09:00; Stop 07/08/19 at 08:59; Status DC Sodium Chloride 1,000 ml @ 400 mls/hr Q2H30M PRN IV PATENCY; Start 07/07/19 at 08:56; Stop 07/07/19 at 20:55; Status DC Info (PHARMACY MONITORING -- do not chart) 1 each PRN DAILY PRN MC SEE COMMENTS; Start 07/07/19 at 09:00; Status UNV Info (PHARMACY MONITORING -- do not chart) 1 each PRN DAILY PRN MC SEE COMMENTS; Start 07/07/19 at 09:00; Stop 07/08/19 at 08:13; Status DC Digoxin (Lanoxin) 500 mcg 1X ONCE IV Last administered on 07/07/19at 10:04; Start 07/07/19 at 10:00; Stop 07/07/19 at 10:01; Status DC Digoxin (Lanoxin) 125 mcg 1X ONCE IV Last administered on 07/07/19at 17:10; Start 07/07/19 at 18:00; Stop 07/07/19 at 18:01; Status DC Magnesium Sulfate 100 ml @ 25 mls/hr 1X ONCE IV Last administered on 07/07/19at 12:48; Start 07/07/19 at 13:00; Stop 07/07/19 at 16:59; Status DC Sodium Chloride 90 meq/Magnesium Sulfate 10 meq/ Calcium Gluconate 20 meq/ Multivitamins 10 ml/Chromium/ Copper/Manganese/ Seleni/Zn 0.5 ml/ Total Parenteral Nutrition/Amino Acids/Dextrose/ Fat Emulsion Intravenous 1,512 ml @ 63 mls/hr TPN CONT IV Last administered on 07/07/19at 22:25; Start 07/07/19 at 22:00; Stop 07/08/19 at 21:59; Status DC Sodium Chloride 1,000 ml @ 1,000 mls/hr Q1H PRN IV hypotension; Start 07/08/19 at 08:05; Stop 07/08/19 at 14:04; Status DC Albumin Human 200 ml @ 200 mls/hr 1X ONCE IV Last administered on 07/08/19at 08:57; Start 07/08/19 at 08:15; Stop 07/08/19 at 09:14; Status DC Diphenhydramine HCl (Benadryl) 25 mg 1X PRN PRN IV ITCHING; Start 07/08/19 at 08:15; Stop 07/09/19 at 08:14; Status DC Diphenhydramine HCl (Benadryl) 25 mg 1X PRN PRN IV ITCHING; Start 07/08/19 at 08:15; Stop 07/09/19 at 08:14; Status DC Sodium Chloride 1,000 ml @ 400 mls/hr Q2H30M PRN IV PATENCY; Start 07/08/19 at 08:05; Stop 07/08/19 at 20:04; Status DC Info (PHARMACY MONITORING -- do not chart) 1 each PRN DAILY PRN MC SEE COMMENTS; Start 07/08/19 at 08:15; Stop 07/12/19 at 07:57; Status DC Sodium Chloride 90 meq/Potassium Chloride 15 meq/ Potassium Phosphate 10 mmol/ Magnesium Sulfate 10 meq/Calcium Gluconate 20 meq/ Multivitamins 10 ml/Chromium/ Copper/Manganese/ Seleni/Zn 0.5 ml/ Total Parenteral Nutrition/Amino Acids/Dextrose/ Fat Emulsion Intravenous 1,512 ml @ 63 mls/hr TPN CONT IV Last administered on 07/08/19at 21:01; Start 07/08/19 at 22:00; Stop 07/09/19 at 21:59; Status DC Potassium Chloride/Water 100 ml @ 100 mls/hr 1X ONCE IV Last administered on 07/08/19at 14:09; Start 07/08/19 at 14:00; Stop 07/08/19 at 14:59; Status DC Benzocaine (Hurricaine One) 1 spray 1X ONCE MM Last administered on 07/08/19at 16:38; Start 07/08/19 at 14:30; Stop 07/08/19 at 14:31; Status DC Lidocaine HCl (Glydo (Lidocaine) Jelly) 1 ramu 1X ONCE MM Last administered on 07/08/19at 16:38; Start 07/08/19 at 14:30; Stop 07/08/19 at 14:31; Status DC Linezolid/Dextrose 300 ml @ 300 mls/hr Q12HR IV Last administered on 07/14/19at 21:04; Start 07/08/19 at 20:00; Stop 07/15/19 at 07:50; Status DC Acetaminophen (Tylenol) 650 mg PRN Q6HRS PRN PO MILD PAIN / TEMP; Start 07/09/19 at 03:30; Stop 07/09/19 at 03:36; Status DC Acetaminophen (Tylenol) 650 mg PRN Q6HRS PRN PEG MILD PAIN / TEMP Last administered on 07/14/19at 07:35; Start 07/09/19 at 03:36 Sodium Chloride 1,000 ml @ 1,000 mls/hr Q1H PRN IV hypotension; Start 07/09/19 at 07:50; Stop 07/09/19 at 13:49; Status DC Albumin Human 200 ml @ 200 mls/hr 1X PRN PRN IV Hypotension; Start 07/09/19 at 08:00; Stop 07/09/19 at 13:59; Status DC Sodium Chloride (Normal Saline Flush) 10 ml 1X PRN PRN IV AP catheter pack; Start 07/09/19 at 08:00; Stop 07/10/19 at 07:59; Status DC Sodium Chloride (Normal Saline Flush) 10 ml 1X PRN PRN IV YARN TESTER catheter pack; Start 07/09/19 at 08:00; Stop 07/10/19 at 07:59; Status DC Sodium Chloride 1,000 ml @ 400 mls/hr Q2H30M PRN IV PATENCY; Start 07/09/19 at 07:50; Stop 07/09/19 at 19:49; Status DC Info (PHARMACY MONITORING -- do not chart) 1 each PRN DAILY PRN MC SEE COMMENTS; Start 07/09/19 at 08:00; Status UNV Info (PHARMACY MONITORING -- do not chart) 1 each PRN DAILY PRN MC SEE COMMENTS; Start 07/09/19 at 08:00; Stop 07/11/19 at 08:25; Status DC Sodium Chloride 90 meq/Potassium Chloride 15 meq/ Potassium Phosphate 10 mmol/ Magnesium Sulfate 10 meq/Calcium Gluconate 20 meq/ Multivitamins 10 ml/Chromium/ Copper/Manganese/ Seleni/Zn 0.5 ml/ Total Parenteral Nutrition/Amino Acids/Dextrose/ Fat Emulsion Intravenous 1,512 ml @ 63 mls/hr TPN CONT IV Last administered on 07/09/19at 20:57; Start 07/09/19 at 22:00; Stop 07/10/19 at 21:59; Status DC Sodium Chloride 90 meq/Potassium Chloride 15 meq/ Potassium Phosphate 15 mmol/ Magnesium Sulfate 10 meq/Calcium Gluconate 20 meq/ Multivitamins 10 ml/Chromium/ Copper/Manganese/ Seleni/Zn 0.5 ml/ Total Parenteral Nutrition/Amino Acid s/Dextrose/ Fat Emulsion Intravenous 1,512 ml @ 63 mls/hr TPN CONT IV ; Start 07/10/19 at 22:00; Stop 07/10/19 at 14:16; Status DC Sodium Chloride 90 meq/Potassium Chloride 15 meq/ Potassium Phosphate 15 mmol/ Magnesium Sulfate 10 meq/Calcium Gluconate 20 meq/ Multivitamins 10 ml/Chromium/ Copper/Manganese/ Seleni/Zn 0.5 ml/ Total Parenteral Nutrition/Amino Acids/Dextrose/ Fat Emulsion Intravenous 1,200 ml @ 50 mls/hr TPN CONT IV ; Start 07/10/19 at 22:00; Stop 07/10/19 at 14:17; Status DC Sodium Chloride 90 meq/Potassium Chloride 15 meq/ Potassium Phosphate 10 mmol/ Magnesium Sulfate 10 meq/Calcium Gluconate 20 meq/ Multivitamins 10 ml/Chromium/ Copper/Manganese/ Seleni/Zn 0.5 ml/ Total Parenteral Nutrition/Amino Acids/Dextrose/ Fat Emulsion Intravenous 1,200 ml @ 50 mls/hr TPN CONT IV Last administered on 07/10/19at 23:29; Start 07/10/19 at 22:00; Stop 07/11/19 at 21:59; Status DC Sodium Chloride 1,000 ml @ 1,000 mls/hr Q1H PRN IV hypotension; Start 07/11/19 at 07:28; Stop 07/11/19 at 13:27; Status DC Albumin Human 200 ml @ 200 mls/hr 1X ONCE IV Last administered on 07/11/19at 08:51; Start 07/11/19 at 07:30; Stop 07/11/19 at 08:29; Status DC Diphenhydramine HCl (Benadryl) 25 mg 1X PRN PRN IV ITCHING; Start 07/11/19 at 07:30; Stop 07/12/19 at 07:29; Status DC Diphenhydramine HCl (Benadryl) 25 mg 1X PRN PRN IV ITCHING; Start 07/11/19 at 07:30; Stop 07/12/19 at 07:29; Status DC Sodium Chloride 1,000 ml @ 400 mls/hr Q2H30M PRN IV PATENCY; Start 07/11/19 at 07:28; Stop 07/11/19 at 19:27; Status DC Info (PHARMACY MONITORING -- do not chart) 1 each PRN DAILY PRN MC SEE COMMENTS; Start 07/11/19 at 07:30; Stop 07/22/19 at 13:01; Status DC Metronidazole 100 ml @ 100 mls/hr Q6HRS IV Last administered on 07/22/19at 17:02; Start 07/11/19 at 08:30 Micafungin Sodium 100 mg/Dextrose 100 ml @ 100 mls/hr Q24H IV Last administered on 07/22/19at 12:43; Start 07/11/19 at 09:00 Propofol 0 ml @ As Directed STK-MED ONCE IV ; Start 07/11/19 at 07:53; Stop 07/11/19 at 07:53; Status DC Etomidate (Amidate) 20 mg STK-MED ONCE IV ; Start 07/11/19 at 07:53; Stop 07/11/19 at 07:54; Status DC Midazolam HCl (Versed) 5 mg STK-MED ONCE .ROUTE ; Start 07/11/19 at 07:57; Stop 07/11/19 at 07:57; Status DC Fentanyl Citrate 30 ml @ 0 mls/hr CONT PRN IV SEE PROTOCOL Last administered on 07/22/19at 16:27; Start 07/11/19 at 08:15 Artificial Tears (Artificial Tears) 1 drop PRN Q1HR PRN OU DRY EYE; Start 06/19 07/07 at 08:15 Midazolam HCl 50 mg/Sodium Chloride 50 ml @ 0 mls/hr CONT PRN IV SEE PROTOCOL Last administered on 07/14/19at 22:39; Start 07/11/19 at 08:15; Stop 07/16/19 at 15:59; Status DC Etomidate (Amidate) 8 mg 1X ONCE IV Last administered on 07/11/19at 08:33; Start 07/11/19 at 08:30; Stop 07/11/19 at 08:31; Status DC Succinylcholine Chloride (Anectine) 120 mg 1X ONCE IV Last administered on 07/11/19at 08:34; Start 07/11/19 at 08:30; Stop 07/11/19 at 08:31; Status DC Midazolam HCl (Versed) 5 mg 1X ONCE IV ; Start 07/11/19 at 08:30; Stop 07/11/19 at 08:31; Status DC Potassium Chloride 15 meq/ Bicarbonate Dialysis Soln w/ out KCl 5,007.5 ml @ 1,000 mls/ hr Q5H1M IV Last administered on 07/12/19at 11:11; Start 07/11/19 at 12:00; Stop 07/12/19 at 11:15; Status DC Potassium Chloride 15 meq/ Bicarbonate Dialysis Soln w/ out KCl 5,007.5 ml @ 1,000 mls/ hr Q5H1M IV Last administered on 07/12/19at 11:12; Start 07/11/19 at 12:00; Stop 07/12/19 at 11:17; Status DC Potassium Chloride 15 meq/ Bicarbonate Dialysis Soln w/ out KCl 5,007.5 ml @ 1,000 mls/ hr Q5H1M IV Last administered on 07/12/19at 11:11; Start 07/11/19 at 12:00; Stop 07/12/19 at 11:19; Status DC Sodium Chloride 90 meq/Potassium Chloride 15 meq/ Potassium Phosphate 10 mmol/ Magnesium Sulfate 10 meq/Calcium Gluconate 20 meq/ Multivitamins 10 ml/Chromium/ Copper/Manganese/ Seleni/Zn 0.5 ml/ Total Parenteral Nutrition/Amino Acids/Dextrose/ Fat Emulsion Intravenous 1,400 ml @ 58.333 mls/ hr TPN CONT IV Last administered on 07/11/19at 21:42; Start 07/11/19 at 22:00; Stop 07/12/19 at 21:59; Status DC Heparin Sodium (Porcine) (Heparin Sodium) 5,000 unit Q8HRS SQ Last administered on 07/16/19at 05:55; Start 07/11/19 at 15:00; Stop 07/16/19 at 13:28; Status DC Meropenem 500 mg/ Sodium Chloride 50 ml @ 100 mls/hr Q6HRS IV Last administered on 07/13/19at 06:00; Start 07/12/19 at 09:00; Stop 07/13/19 at 07:29; Status DC Potassium Phosphate 20 mmol/ Sodium Chloride 106.6667 ml @ 51.667 m... 1X ONCE IV Last administered on 07/12/19at 11:22; Start 07/12/19 at 10:15; Stop 07/12/19 at 12:18; Status DC Acetaminophen (Tylenol Supp) 650 mg PRN Q6HRS PRN AL MILD PAIN / TEMP Last ad ministered on 07/12/19at 10:37; Start 07/12/19 at 10:30 Potassium Chloride/Water 100 ml @ 100 mls/hr Q1H IV Last administered on 07/12/19at 12:12; Start 07/12/19 at 11:00; Stop 07/12/19 at 12:59; Status DC Potassium Chloride 20 meq/ Bicarbonate Dialysis Soln w/ out KCl 5,010 ml @ 1,000 mls/hr Q5H1M IV Last administered on 07/13/19at 08:48; Start 07/12/19 at 12:00; Stop 07/13/19 at 13:03; Status DC Potassium Chloride 20 meq/ Bicarbonate Dialysis Soln w/ out KCl 5,010 ml @ 1,000 mls/hr Q5H1M IV Last administered on 07/17/19at 14:52; Start 07/12/19 at 11:30; Stop 07/17/19 at 19:59; Status DC Potassium Chloride 20 meq/ Bicarbonate Dialysis Soln w/ out KCl 5,010 ml @ 1,000 mls/hr Q5H1M IV Last administered on 07/17/19at 14:53; Start 07/12/19 at 11:30; Stop 07/17/19 at 19:59; Status DC Sodium Chloride 90 meq/Potassium Chloride 15 meq/ Potassium Phosphate 15 mmol/ Magnesium Sulfate 10 meq/Calcium Gluconate 15 meq/ Multivitamins 10 ml/Chromium/ Copper/Manganese/ Seleni/Zn 0.5 ml/ Total Parenteral Nutrition/Amino Acids/Dextrose/ Fat Emulsion Intravenous 1,400 ml @ 58.333 mls/ hr TPN CONT IV Last administered on 07/12/19at 22:17; Start 07/12/19 at 22:00; Stop 07/13/19 at 21:59; Status DC Cefepime HCl (Maxipime) 2 gm Q12HR IVP Last administered on 07/22/19at 12:43; Start 07/13/19 at 09:00 Daptomycin 500 mg/ Sodium Chloride 50 ml @ 100 mls/hr Q48H IV Last administered on 07/21/19at 08:29; Start 07/13/19 at 08:30 Lidocaine HCl (Buffered Lidocaine 1%) 3 ml 1X ONCE INJ Last administered on 07/13/19at 10:27; Start 07/13/19 at 10:30; Stop 07/13/19 at 10:31; Status DC Potassium Phosphate 20 mmol/ Sodium Chloride 106.6667 ml @ 51.667 m... 1X ONCE IV Last administered on 07/13/19at 12:51; Start 07/13/19 at 13:00; Stop 07/13/19 at 15:03; Status DC Sodium Chloride 90 meq/Potassium Chloride 15 meq/ Potassium Phosphate 18 mmol/ Magnesium Sulfate 8 meq/Calcium Gluconate 15 meq/ Multivitamins 10 ml/Chromium/ Copper/Manganese/ Seleni/Zn 0.5 ml/ Total Parenteral Nutrition/Amino Acids/Dextrose/ Fat Emulsion Intravenous 1,400 ml @ 58.333 mls/ hr TPN CONT IV Last administered on 07/13/19at 22:16; Start 07/13/19 at 22:00; Stop 07/14/19 at 21:59; Status DC Potassium Chloride 20 meq/ Bicarbonate Dialysis Soln w/ out KCl 5,010 ml @ 1,000 mls/hr Q5H1M IV Last administered on 07/17/19at 14:54; Start 07/13/19 at 16:00; Stop 07/17/19 at 19:59; Status DC Multi-Ingred Cream/Lotion/Oil/ Oint (Artificial Tears Eye Ointment) 1 ramu PRN Q1HR PRN OU DRY EYE Last administered on 07/22/19at 11:05; Start 07/13/19 at 17:30 Sodium Chloride 90 meq/Potassium Chloride 15 meq/ Potassium Phosphate 18 mmol/ Magnesium Sulfate 8 meq/Calcium Gluconate 15 meq/ Multivitamins 10 ml/Chromium/ Copper/Manganese/ Seleni/Zn 0.5 ml/ Total Parenteral Nutrition/Amino Acids/Dextrose/ Fat Emulsion Intravenous 1,400 ml @ 58.333 mls/ hr TPN CONT IV Last administered on 07/14/19at 22:00; Start 07/14/19 at 22:00; Stop 07/15/19 at 21:59; Status DC Albumin Human 500 ml @ 125 mls/hr 1X ONCE IV ; Start 07/14/19 at 14:15; Stop 07/14/19 at 18:14; Status DC Sodium Chloride 90 meq/Potassium Chloride 15 meq/ Potassium Phosphate 18 mmol/ Magnesium Sulfate 8 meq/Calcium Gluconate 15 meq/ Multivitamins 10 ml/Chromium/ Copper/Manganese/ Seleni/Zn 0.5 ml/ Insulin Human Regular 10 unit/ Total Parenteral Nutrition/Amino Acids/Dextrose/ Fat Emulsion Intravenous 1,400 ml @ 58.333 mls/ hr TPN CONT IV Last administered on 07/15/19at 21:43; Start 07/15/19 at 22:00; Stop 07/16/19 at 21:59; Status DC Lidocaine HCl (Buffered Lidocaine 1%) 3 ml STK-MED ONCE .ROUTE ; Start 07/13/19 at 10:00; Stop 07/15/19 at 13:57; Status DC Midazolam HCl 100 mg/Sodium Chloride 100 ml @ 7 mls/hr CONT PRN IV SEE PROTOCOL Last administered on 07/20/19at 13:57; Start 07/16/19 at 16:00 Sodium Chloride 90 meq/Potassium Chloride 15 meq/ Potassium Phosphate 18 mmol/ Magnesium Sulfate 8 meq/Calcium Gluconate 15 meq/ Multivitamins 10 ml/Chromium/ Copper/Manganese/ Seleni/Zn 0.5 ml/ Insulin Human Regular 15 unit/ Total Parenteral Nutrition/Amino Acids/Dextrose/ Fat Emulsion Intravenous 1,400 ml @ 58.333 mls/ hr TPN CONT IV Last administered on 07/16/19at 20:34; Start 07/16/19 at 22:00; Stop 07/17/19 at 21:59; Status DC Info (Icu Electrolyte Protocol) 1 ea CONT PRN PRN MC PER PROTOCOL; Start 07/17/19 at 13:15 Sodium Chloride 90 meq/Potassium Chloride 15 meq/ Potassium Phosphate 18 mmol/ Magnesium Sulfate 8 meq/Calcium Gluconate 15 meq/ Multivitamins 10 ml/Chromium/ Copper/Manganese/ Seleni/Zn 0.5 ml/ Insulin Human Regular 15 unit/ Total Parenteral Nutrition/Amino Acids/Dextrose/ Fat Emulsion Intravenous 1,400 ml @ 58.333 mls/ hr TPN CONT IV Last administered on 07/17/19at 22:05; Start 07/17/19 at 22:00; Stop 07/18/19 at 21:59; Status DC Potassium Chloride 15 meq/ Bicarbonate Dialysis Soln w/ out KCl 5,007.5 ml @ 1,000 mls/ hr Q5H1M IV Last administered on 07/20/19at 18:14; Start 07/17/19 at 20:00; Stop 07/21/19 at 13:08; Status DC Potassium Chloride 15 meq/ Bicarbonate Dialysis Soln w/ out KCl 5,007.5 ml @ 1,000 mls/ hr Q5H1M IV Last administered on 07/20/19at 18:14; Start 07/17/19 at 20:00; Stop 07/21/19 at 13:08; Status DC Potassium Chloride 15 meq/ Bicarbonate Dialysis Soln w/ out KCl 5,007.5 ml @ 1,000 mls/ hr Q5H1M IV Last administered on 07/20/19at 18:14; Start 07/17/19 at 20:00; Stop 07/21/19 at 13:08; Status DC Iohexol (Omnipaque 240 Mg/ml) 30 ml 1X ONCE PO Last administered on 07/18/19at 11:30; Start 07/18/19 at 11:30; Stop 07/18/19 at 11:33; Status DC Info (CONTRAST GIVEN -- Rx MONITORING) 1 each PRN DAILY PRN MC SEE COMMENTS; Start 07/18/19 at 11:45; Stop 07/20/19 at 11:44; Status DC Sodium Chloride 90 meq/Potassium Chloride 15 meq/ Potassium Phosphate 18 mmol/ Magnesium Sulfate 8 meq/Calcium Gluconate 15 meq/ Multivitamins 10 ml/Chromium/ Copper/Manganese/ Seleni/Zn 0.5 ml/ Insulin Human Regular 15 unit/ Total Parenteral Nutrition/Amino Acids/Dextrose/ Fat Emulsion Intravenous 1,400 ml @ 58.333 mls/ hr TPN CONT IV Last administered on 07/18/19at 21:47; Start 07/18/19 at 22:00; Stop 07/19/19 at 21:59; Status DC Sodium Chloride 90 meq/Potassium Chloride 15 meq/ Potassium Phosphate 18 mmol/ Magnesium Sulfate 8 meq/Calcium Gluconate 15 meq/ Multivitamins 10 ml/Chromium/ Copper/Manganese/ Seleni/Zn 0.5 ml/ Insulin Human Regular 20 unit/ Total Parenteral Nutrition/Amino Acids/Dextrose/ Fat Emulsion Intravenous 1,400 ml @ 58.333 mls/ hr TPN CONT IV Last administered on 07/19/19at 21:36; Start 07/19/19 at 22:00; Stop 07/20/19 at 21:59; Status DC Alteplase, Recombinant (Cathflo For Central Catheter Clearance) 1 mg 1X ONCE INT CAT Last administered on 07/19/19at 20:03; Start 07/19/19 at 19:30; Stop 07/19/19 at 19:46; Status DC Alteplase, Recombinant (Cathflo For Central Catheter Clearance) 1 mg 1X ONCE INT CAT Last administered on 07/19/19at 22:05; Start 07/19/19 at 22:00; Stop 07/19/19 at 22:01; Status DC Sodium Chloride 90 meq/Potassium Chloride 15 meq/ Potassium Phosphate 18 mmol/ Magnesium Sulfate 8 meq/Calcium Gluconate 15 meq/ Multivitamins 10 ml/Chromium/ Copper/Manganese/ Seleni/Zn 0.5 ml/ Insulin Human Regular 20 unit/ Total Parenteral Nutrition/Amino Acids/Dextrose/ Fat Emulsion Intravenous 1,400 ml @ 58.333 mls/ hr TPN CONT IV Last administered on 07/20/19at 21:30; Start 07/20/19 at 22:00; Stop 07/21/19 at 21:59; Status DC Dexmedetomidine HCl 400 mcg/ Sodium Chloride 100 ml @ 0 mls/hr CONT PRN IV ANXIETY / AGITATION Last administered on 07/22/19at 13:52; Start 07/21/19 at 08:15 Sodium Chloride 500 ml @ 500 mls/hr 1X PRN PRN IV ELEVATED BP, SEE COMMENTS; Start 07/21/19 at 08:15 Atropine Sulfate (ATROPINE 0.5mg SYRINGE) 0.5 mg PRN Q5MIN PRN IV SEE COMMENTS; Start 07/21/19 at 08:15 Furosemide (Lasix) 20 mg 1X ONCE IVP Last administered on 07/21/19at 08:19; Start 07/21/19 at 08:15; Stop 07/21/19 at 08:16; Status DC Lidocaine HCl (Buffered Lidocaine 1%) 3 ml STK-MED ONCE .ROUTE ; Start 07/21/19 at 08:39; Stop 07/21/19 at 08:39; Status DC Lidocaine HCl (Buffered Lidocaine 1%) 6 ml 1X ONCE INJ Last administered on 07/21/19at 09:05; Start 07/21/19 at 09:00; Stop 07/21/19 at 09:06; Status DC Sodium Chloride 90 meq/Potassium Chloride 15 meq/ Potassium Phosphate 18 mmol/ Magnesium Sulfate 8 meq/Calcium Gluconate 15 meq/ Multivitamins 10 ml/Chromium/ Copper/Manganese/ Seleni/Zn 0.5 ml/ Insulin Human Regular 20 unit/ Total Parenteral Nutrition/Amino Acids/Dextrose/ Fat Emulsion Intravenous 1,400 ml @ 58.333 mls/ hr TPN CONT IV Last administered on 07/21/19at 22:45; Start 07/21/19 at 22:00; Stop 07/22/19 at 21:59 Sodium Chloride 1,000 ml @ 1,000 mls/hr Q1H PRN IV hypotension; Start 07/22/19 at 07:30; Stop 07/22/19 at 13:29; Status DC Albumin Human 200 ml @ 200 mls/hr 1X PRN PRN IV Hypotension Last administered on 07/22/19at 09:36; Start 07/22/19 at 07:30; Stop 07/22/19 at 13:29; Status DC Sodium Chloride (Normal Saline Flush) 10 ml 1X PRN PRN IV AP catheter pack; Start 07/22/19 at 07:30; Stop 07/23/19 at 07:29 Sodium Chloride (Normal Saline Flush) 10 ml 1X PRN PRN IV YARN TESTER catheter pack; Start 07/22/19 at 07:30; Stop 07/23/19 at 07:29 Sodium Chloride 1,000 ml @ 400 mls/hr Q2H30M PRN IV PATENCY; Start 07/22/19 at 07:30; Stop 07/22/19 at 19:29 Info (PHARMACY MONITORING -- do not chart) 1 each PRN DAILY PRN MC SEE COMMENTS; Start 07/22/19 at 07:30; Stop 07/22/19 at 13:02; Status DC Info (PHARMACY MONITORING -- do not chart) 1 each PRN DAILY PRN MC SEE COMMENTS; Start 07/22/19 at 07:30 Sodium Chloride 90 meq/Potassium Chloride 15 meq/ Potassium Phosphate 10 mmol/ Magnesium Sulfate 8 meq/Calcium Gluconate 15 meq/ Multivitamins 10 ml/Chromium/ Copper/Manganese/ Seleni/Zn 0.5 ml/ Insulin Human Regular 25 unit/ Total Pare nteral Nutrition/Amino Acids/Dextrose/ Fat Emulsion Intravenous 1,400 ml @ 58.333 mls/ hr TPN CONT IV ; Start 07/22/19 at 22:00; Stop 07/23/19 at 21:59 Heparin Sodium (Porcine) (Heparin Sodium) 5,000 unit Q12HR SQ ; Start 07/22/19 at 21:00 Active Scripts Active Reported Bisoprolol Fumarate 5 Mg Tablet 10 Mg PO DAILY Vitals/I & O Vital Sign - Last 24 Hours 07/21/19 07/21/19 07/21/19 07/21/19 20:00 20:00 20:12 21:00 Temp 99.1 99.1 Pulse 66 79 Resp B/P (MAP) 97/59 (72) 95/57 (70) Pulse Ox 100 100 100 O2 Delivery Mechanical Ventilator Ventilator Ventilator Ventilator 07/21/19 07/21/19 07/21/19 07/21/19 22:00 23:00 23:31 23:59 Temp 99.4 99.4 Pulse 79 77 77 Resp 24 B/P (MAP) 96/59 (71) 102/62 (75) 96/59 (71) Pulse Ox 100 100 100 98 O2 Delivery Ventilator Ventilator Ventilator Ventilator 07/21/19 07/22/19 07/22/19 07/22/19 23:59 01:00 02:00 03:00 Pulse 78 77 78 Resp B/P (MAP) 101/59 (73) 105/59 (74) 108/62 (77) Pulse Ox 100 100 100 O2 Delivery Mechanical Ventilator Ventilator Ventilator Ventilator 07/22/19 07/22/19 07/22/19 07/22/19 04:00 04:00 04:05 04:40 Temp 99.8 99.8 Pulse 79 Resp 25 B/P (MAP) 98/60 (73) Pulse Ox 100 99 100 O2 Delivery Ventilator Mechanical Ventilator Ventilator O2 Flow Rate 6.0 07/22/19 07/22/19 07/22/1920 05:00 05:12 06:00 07:00 Temp 99.6 99.6 Pulse 78 76 73 Resp 25 24 25 B/P (MAP) 102/56 (71) 98/52 (67) 92/53 (66) Pulse Ox 99 100 100 99 O2 Delivery Ventilator Ventilator Ventilator O2 Flow Rate 6.0 07/22/19 07/22/19 07/22/19 07/22/19 08:00 08:00 09:00 09:02 Pulse 80 84 Resp 25 25 B/P (MAP) 114/65 (81) 85/54 (64) Pulse Ox 99 99 99 O2 Delivery Ventilator Mechanical Ventilator Ventilator Ventilator 07/22/19 07/22/19 07/22/19 07/22/19 10:00 11:00 11:47 12:00 Pulse 82 81 77 Resp 25 25 25 B/P (MAP) 98/63 (75) 121/68 (85) 93/61 (72) Pulse Ox 100 99 99 99 O2 Delivery Ventilator Ventilator Ventilator Ventilator 07/22/19 07/22/19 07/22/19 07/22/19 12:23 13:00 14:00 15:00 Temp 99.0 99.1 99.0 99.1 Pulse 84 83 80 Resp 25 25 25 B/P (MAP) 133/72 (92) 87/45 (59) 131/66 (87) Pulse Ox 100 100 97 O2 Delivery Mechanical Ventilator Ventilator Ventilator Ventilator 07/22/19 07/22/19 07/22/19 07/22/19 15:17 16:00 16:00 16:27 Pulse 86 Resp 25 B/P (MAP) 116/68 (84) Pulse Ox 97 100 100 O2 Delivery Ventilator Mechanical Ventilator Ventilator Ventilator 07/22/19 07/22/19 07/22/19 17:00 17:05 18:00 Pulse 81 84 Resp 25 25 25 B/P (MAP) 108/60 (76) 103/62 (76) Pulse Ox 100 100 100 O2 Delivery Ventilator Ventilator Ventilator Intake and Output 07/21/19 07/21/19 07/22/19 15:00 23:00 07:00 Intake Total 250 ml 981 ml 949 ml Output Total 230 ml 565 ml 535 ml Balance 20 ml 416 ml 414 ml Hemodynamically unstable?: No Is patient in severe pain?: No Is NPO status required?: Yes FARELA,SALOMÓN MD Jul 22, 2019 19:25
[2019-07-22] MEDS: HEPARIN for SUB-Q USE 5,000 UNIT/ML VIAL. SQ SCH (20:20)
[2019-07-22] MEDS: MIDAZOLAM HCL 100 MG in IV NORMAL SALINE 100ML 100 ML IV PRN (21:19)
[2019-07-22] MEDS ORDERED: TOTAL PARENTERAL NUTRITION IV SCH ×11 (22:00)
[2019-07-22] MEDS ORDERED: [UNRECOGNIZED DRUG - OTHER] IV SCH ×11 (22:00)
[2019-07-22] MEDS ORDERED: AMINO ACID IV SCH ×11 (22:00)
[2019-07-22] MEDS ORDERED: DEXTROSE 70% IV SCH ×11 (22:00)
[2019-07-23] VITALS (20 sets, daily range): BP systolic 72–116; BP diastolic 47–74
[2019-07-23] MEDS: INSULIN LISPRO 300 UNITS/3 ML VIAL. SQ SCH ×5 (00:01→23:55)
[2019-07-23] MEDS: DEXMEDETOMIDINE 400 MCG in IV NORMAL SALINE 100ML 96 ML IV PRN ×5 (02:37→21:33)
[2019-07-23 05:34] LABS: HEMATOCRIT 23.9 % (36.0-47.0); RED BLOOD COUNT 2.43 x10^6/uL (3.50-5.40); RED CELL DISTRIBUTION WIDTH 18.3 % (11.5-14.5); WHITE BLOOD COUNT 11.2 x10^3/uL (4.0-11.0)
[2019-07-23 05:50] LABS: CALCIUM 8.3 mg/dL (8.5-10.1); GFR 26.5
[2019-07-23] MEDS: MIDAZOLAM HCL 100 MG in IV NORMAL SALINE 100ML 100 ML IV PRN ×2 (06:07→19:54)
[2019-07-23] MEDS: PANTOPRAZOLE IV PUSH 40 MG VIAL. IVP SCH (07:33)
[2019-07-23] MEDS: MICAFUNGIN 100 MG in IV DEXTROSE 5% 100ML 100 ML IV SCH (08:55)
[2019-07-23] MEDS: CEFEPIME HCL IV Push 2 GM VIAL. IVP SCH ×2 (08:56→21:32)
[2019-07-23] MEDS: HEPARIN for SUB-Q USE 5,000 UNIT/ML VIAL. SQ SCH ×2 (08:57→21:33)
[2019-07-23] MEDS ORDERED: IV NORMAL SALINE 1000ML BAG 1,000 ML IV PRN ×2 (09:10)
[2019-07-23] MEDS ORDERED: ALBUMIN HUMAN 25% 200 ML IV PRN (09:15)
[2019-07-23] MEDS ORDERED: DIALYSIS PATIENT. MC PRN ×2 (09:15)
--- NOTE | 2019-07-23 09:21 | PDOC ---
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 [employer]ER 07/23/19 0921: SURGICAL PROGRESS NOTE Subjective no acute changes Vital Signs Vital Signs Date Time Temp Pulse Resp B/P (MAP) Pulse Ox O2 Delivery O2 Flow Rate FiO2 07/23/19 07:00 84 24 116/58 (77) 98 Ventilator 07/23/19 06:00 98.5 98.5 I&O Intake and Output 07/23/19 07:00 Intake Total 2746.2 ml Output Total 725 ml Balance 2021.2 ml IV Total 2746.2 ml Output Urine Total 515 ml Stool Total 10 ml Gastric Drainage Total 200 ml PATIENT HAS A ROSARIO: Yes General: Other (sedated ) HEENT: Other (bilious og otuput) Abdomen: Other (firm. distended ) Labs Laboratory Tests Test 07/21/19 17:16 07/22/19 05:51 07/22/19 06:00 07/22/19 13:11 Glucose (Fingerstick) 211 mg/dL (70-99) 209 mg/dL (70-99) 159 mg/dL (70-99) White Blood Count 15.7 x10^3/uL (4.0-11.0) Red Blood Count 2.57 x10^6/uL (3.50-5.40) Hemoglobin 8.2 g/dL (12.0-15.5) Hematocrit 25.8 % (36.0-47.0) Mean Corpuscular Volume 101 fL (79-100) Mean Corpuscular Hemoglobin 32 pg (25-35) Mean Corpuscular Hemoglobin Concent 32 g/dL (31-37) Red Cell Distribution Width 18.9 % (11.5-14.5) Platelet Count 233 x10^3/uL (140-400) Neutrophils (%) (Auto) 83 % (31-73) Lymphocytes (%) (Auto) 7 % (24-48) Monocytes (%) (Auto) 8 % (0-9) Eosinophils (%) (Auto) 2 % (0-3) Basophils (%) (Auto) 0 % (0-3) Neutrophils # (Auto) 13.0 x10^3/uL (1.8-7.7) Lymphocytes # (Auto) 1.1 x10^3/uL (1.0-4.8) Monocytes # (Auto) 1.2 x10^3/uL (0.0-1.1) Eosinophils # (Auto) 0.4 x10^3/uL (0.0-0.7) Basophils # (Auto) 0.1 x10^3/uL (0.0-0.2) Segmented Neutrophils % 58 % (35-66) Band Neutrophils % 19 % (0-9) Lymphocytes % 13 % (24-48) Monocytes % 4 % (0-10) Eosinophils % 4 % (0-5) Myelocytes % 2 % (0-0) Nucleated Red Blood Cells 2 Platelet Estimate Adequate (ADEQUATE) Giant Platelets Occ Anisocytosis Slight Sodium Level 141 mmol/L (136-145) Potassium Level 3.8 mmol/L (3.5-5.1) Chloride Level 107 mmol/L (98-107) Carbon Dioxide Level 20 mmol/L (21-32) Anion Gap 14 (6-14) Blood Urea Nitrogen 63 mg/dL (7-20) Creatinine 2.0 mg/dL (0.6-1.0) Estimated GFR (Cockcroft-Gault) 26.5 BUN/Creatinine Ratio 32 (6-20) Glucose Level 212 mg/dL (70-99) Calcium Level 8.0 mg/dL (8.5-10.1) Phosphorus Level 4.7 mg/dL (2.6-4.7) Magnesium Level 2.1 mg/dL (1.8-2.4) Total Bilirubin 0.9 mg/dL (0.2-1.0) Aspartate Amino Transf (AST/SGOT) 46 U/L (15-37) Alanine Aminotransferase (ALT/SGPT) 20 U/L (14-59) Alkaline Phosphatase 95 U/L (46-116) Total Protein 4.1 g/dL (6.4-8.2) Albumin 1.8 g/dL (3.4-5.0) Albumin/Globulin Ratio 0.8 (1.0-1.7) Lipase 823 U/L (73-393) Test 07/22/19 15:30 07/22/19 16:57 07/22/19 23:58 07/23/19 04:40 O2 Saturation 97 % (92-99) Arterial Blood pH 7.55 (7.35-7.45) Arterial Blood pCO2 at Patient Temp 27 mmHg (35-46) Arterial Blood pO2 at Patient Temp 99 mmHg (75-108) Arterial Blood HCO3 23 mmol/L (21-28) Arterial Blood Base Excess 1 mmol/L (-3-3) FiO2 40 Glucose (Fingerstick) 185 mg/dL (70-99) 186 mg/dL (70-99) White Blood Count 11.2 x10^3/uL (4.0-11.0) Red Blood Count 2.43 x10^6/uL (3.50-5.40) Hemoglobin 8.0 g/dL (12.0-15.5) Hematocrit 23.9 % (36.0-47.0) Mean Corpuscular Volume 98 fL (79-100) Mean Corpuscular Hemoglobin 33 pg (25-35) Mean Corpuscular Hemoglobin Concent 33 g/dL (31-37) Red Cell Distribution Width 18.3 % (11.5-14.5) Platelet Count 209 x10^3/uL (140-400) Sodium Level 135 mmol/L (136-145) Potassium Level 4.0 mmol/L (3.5-5.1) Chloride Level 103 mmol/L (98-107) Carbon Dioxide Level 25 mmol/L (21-32) Anion Gap 7 (6-14) Blood Urea Nitrogen 54 mg/dL (7-20) Creatinine 2.0 mg/dL (0.6-1.0) Estimated GFR (Cockcroft-Gault) 26.5 Glucose Level 175 mg/dL (70-99) Calcium Level 8.3 mg/dL (8.5-10.1) Phosphorus Level 3.9 mg/dL (2.6-4.7) Test 07/23/19 05:22 Glucose (Fingerstick) 183 mg/dL (70-99) Laboratory Tests Test 07/22/19 13:11 07/22/19 15:30 07/22/19 16:57 07/22/19 23:58 Glucose (Fingerstick) 159 mg/dL (70-99) 185 mg/dL (70-99) 186 mg/dL (70-99) O2 Saturation 97 % (92-99) Arterial Blood pH 7.55 (7.35-7.45) Arterial Blood pCO2 at Patient Temp 27 mmHg (35-46) Arterial Blood pO2 at Patient Temp 99 mmHg (75-108) Arterial Blood HCO3 23 mmol/L (21-28) Arterial Blood Base Excess 1 mmol/L (-3-3) FiO2 40 Test 07/23/19 04:40 07/23/19 05:22 White Blood Count 11.2 x10^3/uL (4.0-11.0) Red Blood Count 2.43 x10^6/uL (3.50-5.40) Hemoglobin 8.0 g/dL (12.0-15.5) Hematocrit 23.9 % (36.0-47.0) Mean Corpuscular Volume 98 fL (79-100) Mean Corpuscular Hemoglobin 33 pg (25-35) Mean Corpuscular Hemoglobin Concent 33 g/dL (31-37) Red Cell Distribution Width 18.3 % (11.5-14.5) Platelet Count 209 x10^3/uL (140-400) Sodium Level 135 mmol/L (136-145) Potassium Level 4.0 mmol/L (3.5-5.1) Chloride Level 103 mmol/L (98-107) Carbon Dioxide Level 25 mmol/L (21-32) Anion Gap 7 (6-14) Blood Urea Nitrogen 54 mg/dL (7-20) Creatinine 2.0 mg/dL (0.6-1.0) Estimated GFR (Cockcroft-Gault) 26.5 Glucose Level 175 mg/dL (70-99) Calcium Level 8.3 mg/dL (8.5-10.1) Phosphorus Level 3.9 mg/dL (2.6-4.7) Glucose (Fingerstick) 183 mg/dL (70-99) Problem List Problems Medical Problems: (1) Acute pancreatitis Status: Acute (2) Cholelithiasis Status: Acute Assessment/Plan severe pancreatitis supportive care DAVON SIMMS MD 07/23/19 1528: SURGICAL PROGRESS NOTE Assessment/Plan Pt seen and examined. Agree with MsMary Keith's note Pt intubated and sedated, appears stable abd soft tentatively plan trach on 07/24 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 [employer] Jul 23, 2019 09:21 DAVON SIMMS MD Jul 23, 2019 15:28
--- NOTE | 2019-07-23 09:26 | PDOC ---
Infectious Disease Note Subjective Subjective Sedated and intubated, FiO2 70% PEEP 8 Fever Tmax 101.5 TPN Rectal tube ROS ROS unobtainable Vital Sign Vital Signs Vital Signs Date Time Temp Pulse Resp B/P (MAP) Pulse Ox O2 Delivery O2 Flow Rate FiO2 07/23/19 07:00 84 24 116/58 (77) 98 Ventilator 07/23/19 06:00 98.5 98.5 Physical Exam PHYSICAL EXAM GENERAL: Orally intubated/sedated - generalized anasarca HEENT: Pupils equal, ETT, OGT NECK: Supple LUNGS: Diminished aeration bases HEART: S1, S2, regular ABDOMEN: Distended, hypoactive BS, Rectal tube in place : Lind EXTREMITIES: Generalized edema, no cyanosis - some mottling, Rooke boots & SCDs bilaterally DERMATOLOGIC: Warm and dry. No generalized rash. CENTRAL NERVOUS SYSTEM: Sedated RIJ Temp HDC, RUE-PICC & LIJ Labs Lab Laboratory Tests Test 07/22/19 13:11 07/22/19 15:30 07/22/19 16:57 07/22/19 23:58 Glucose (Fingerstick) 159 mg/dL (70-99) 185 mg/dL (70-99) 186 mg/dL (70-99) O2 Saturation 97 % (92-99) Arterial Blood pH 7.55 (7.35-7.45) Arterial Blood pCO2 at Patient Temp 27 mmHg (35-46) Arterial Blood pO2 at Patient Temp 99 mmHg (75-108) Arterial Blood HCO3 23 mmol/L (21-28) Arterial Blood Base Excess 1 mmol/L (-3-3) FiO2 40 Test 07/23/19 04:40 07/23/19 05:22 White Blood Count 11.2 x10^3/uL (4.0-11.0) Red Blood Count 2.43 x10^6/uL (3.50-5.40) Hemoglobin 8.0 g/dL (12.0-15.5) Hematocrit 23.9 % (36.0-47.0) Mean Corpuscular Volume 98 fL (79-100) Mean Corpuscular Hemoglobin 33 pg (25-35) Mean Corpuscular Hemoglobin Concent 33 g/dL (31-37) Red Cell Distribution Width 18.3 % (11.5-14.5) Platelet Count 209 x10^3/uL (140-400) Sodium Level 135 mmol/L (136-145) Potassium Level 4.0 mmol/L (3.5-5.1) Chloride Level 103 mmol/L (98-107) Carbon Dioxide Level 25 mmol/L (21-32) Anion Gap 7 (6-14) Blood Urea Nitrogen 54 mg/dL (7-20) Creatinine 2.0 mg/dL (0.6-1.0) Estimated GFR (Cockcroft-Gault) 26.5 Glucose Level 175 mg/dL (70-99) Calcium Level 8.3 mg/dL (8.5-10.1) Phosphorus Level 3.9 mg/dL (2.6-4.7) Glucose (Fingerstick) 183 mg/dL (70-99) Micro Objective Assessment Leukocytosis - - ? reactive - trouble with CRRT/S/p PRBCs ? intra-abdominal - trending down Fever - Flu neg antigen 07/13 ? reactive with pancreatitis vs ID - C-diff neg. S/p HD cath change with malfunction 07/12 - cults 07/11 neg Lung opacities, COVID-19 neg Hypotension Acute pancreatitis, early developing necrosis -U/S 07/13 reviewed JUANA,Hyperkalemia, Metabolic acidosis on HD - s/p RIJ temporary dialysis catheter replacement, 07/20 Anasarca - worse Acute hypoxic resp failure, intubated ? developing peripheral ischemia - better Cholelithiasis Anemia - S/p PRBC 07/13 Hypocalcemia Prediabetes HTN Plan Plan of Care Continue Dapto/cefepime (07/12), Flagyl and micafungin (07/10) -Previously on Merrem, Zyvox Pancultures CBC in am Maintain aspiration precautions COVID-19 neg, 07/13 D/w nursing Critically ill Attending Co-Sign The patient was seen and interviewed as well as examined at the bedside. The chart was reviewed. The case was discussed with COMMISSIONS SPECIALIST. Pt cont to remain febrile on broad spectrum abx last CT from 07/17 reviewed Agree with the plan of care. FRANCA HOBSON APRN Jul 23, 2019 09:26 YUNIOR JONES MD Jul 23, 2019 14:23
--- NOTE | 2019-07-23 10:16 | PDOC ---
PULMONARY PROGRESS NOTES Subjective Patient intubated on 07/10 , sedated Currently on assist control ventilation 450 tidal volume 8 of PEEP ,40%FIO2 , fevers Vitals Vital Signs Date Time Temp Pulse Resp B/P (MAP) Pulse Ox O2 Delivery O2 Flow Rate FiO2 07/23/19 09:00 86 25 111/74 (86) 98 Ventilator 07/23/19 08:00 98.4 98.4 Comments intubated , sedated Visual exam done via tele-medicine no rash, wounds around nasal folds no leg edema Labs Laboratory Tests Test 07/21/19 17:16 07/22/19 05:51 07/22/19 06:00 07/22/19 13:11 Glucose (Fingerstick) 211 mg/dL (70-99) 209 mg/dL (70-99) 159 mg/dL (70-99) White Blood Count 15.7 x10^3/uL (4.0-11.0) Red Blood Count 2.57 x10^6/uL (3.50-5.40) Hemoglobin 8.2 g/dL (12.0-15.5) Hematocrit 25.8 % (36.0-47.0) Mean Corpuscular Volume 101 fL (79-100) Mean Corpuscular Hemoglobin 32 pg (25-35) Mean Corpuscular Hemoglobin Concent 32 g/dL (31-37) Red Cell Distribution Width 18.9 % (11.5-14.5) Platelet Count 233 x10^3/uL (140-400) Neutrophils (%) (Auto) 83 % (31-73) Lymphocytes (%) (Auto) 7 % (24-48) Monocytes (%) (Auto) 8 % (0-9) Eosinophils (%) (Auto) 2 % (0-3) Basophils (%) (Auto) 0 % (0-3) Neutrophils # (Auto) 13.0 x10^3/uL (1.8-7.7) Lymphocytes # (Auto) 1.1 x10^3/uL (1.0-4.8) Monocytes # (Auto) 1.2 x10^3/uL (0.0-1.1) Eosinophils # (Auto) 0.4 x10^3/uL (0.0-0.7) Basophils # (Auto) 0.1 x10^3/uL (0.0-0.2) Segmented Neutrophils % 58 % (35-66) Band Neutrophils % 19 % (0-9) Lymphocytes % 13 % (24-48) Monocytes % 4 % (0-10) Eosinophils % 4 % (0-5) Myelocytes % 2 % (0-0) Nucleated Red Blood Cells 2 Platelet Estimate Adequate (ADEQUATE) Giant Platelets Occ Anisocytosis Slight Sodium Level 141 mmol/L (136-145) Potassium Level 3.8 mmol/L (3.5-5.1) Chloride Level 107 mmol/L (98-107) Carbon Dioxide Level 20 mmol/L (21-32) Anion Gap 14 (6-14) Blood Urea Nitrogen 63 mg/dL (7-20) Creatinine 2.0 mg/dL (0.6-1.0) Estimated GFR (Cockcroft-Gault) 26.5 BUN/Creatinine Ratio 32 (6-20) Glucose Level 212 mg/dL (70-99) Calcium Level 8.0 mg/dL (8.5-10.1) Phosphorus Level 4.7 mg/dL (2.6-4.7) Magnesium Level 2.1 mg/dL (1.8-2.4) Total Bilirubin 0.9 mg/dL (0.2-1.0) Aspartate Amino Transf (AST/SGOT) 46 U/L (15-37) Alanine Aminotransferase (ALT/SGPT) 20 U/L (14-59) Alkaline Phosphatase 95 U/L (46-116) Total Protein 4.1 g/dL (6.4-8.2) Albumin 1.8 g/dL (3.4-5.0) Albumin/Globulin Ratio 0.8 (1.0-1.7) Lipase 823 U/L (73-393) Test 07/22/19 15:30 07/22/19 16:57 07/22/19 23:58 07/23/19 04:40 O2 Saturation 97 % (92-99) Arterial Blood pH 7.55 (7.35-7.45) Arterial Blood pCO2 at Patient Temp 27 mmHg (35-46) Arterial Blood pO2 at Patient Temp 99 mmHg (75-108) Arterial Blood HCO3 23 mmol/L (21-28) Arterial Blood Base Excess 1 mmol/L (-3-3) FiO2 40 Glucose (Fingerstick) 185 mg/dL (70-99) 186 mg/dL (70-99) White Blood Count 11.2 x10^3/uL (4.0-11.0) Red Blood Count 2.43 x10^6/uL (3.50-5.40) Hemoglobin 8.0 g/dL (12.0-15.5) Hematocrit 23.9 % (36.0-47.0) Mean Corpuscular Volume 98 fL (79-100) Mean Corpuscular Hemoglobin 33 pg (25-35) Mean Corpuscular Hemoglobin Concent 33 g/dL (31-37) Red Cell Distribution Width 18.3 % (11.5-14.5) Platelet Count 209 x10^3/uL (140-400) Sodium Level 135 mmol/L (136-145) Potassium Level 4.0 mmol/L (3.5-5.1) Chloride Level 103 mmol/L (98-107) Carbon Dioxide Level 25 mmol/L (21-32) Anion Gap 7 (6-14) Blood Urea Nitrogen 54 mg/dL (7-20) Creatinine 2.0 mg/dL (0.6-1.0) Estimated GFR (Cockcroft-Gault) 26.5 Glucose Level 175 mg/dL (70-99) Calcium Level 8.3 mg/dL (8.5-10.1) Phosphorus Level 3.9 mg/dL (2.6-4.7) Test 07/23/19 05:22 Glucose (Fingerstick) 183 mg/dL (70-99) Laboratory Tests Test 07/22/19 13:11 07/22/19 15:30 07/22/19 16:57 07/22/19 23:58 Glucose (Fingerstick) 159 mg/dL (70-99) 185 mg/dL (70-99) 186 mg/dL (70-99) O2 Saturation 97 % (92-99) Arterial Blood pH 7.55 (7.35-7.45) Arterial Blood pCO2 at Patient Temp 27 mmHg (35-46) Arterial Blood pO2 at Patient Temp 99 mmHg (75-108) Arterial Blood HCO3 23 mmol/L (21-28) Arterial Blood Base Excess 1 mmol/L (-3-3) FiO2 40 Test 07/23/19 04:40 07/23/19 05:22 White Blood Count 11.2 x10^3/uL (4.0-11.0) Red Blood Count 2.43 x10^6/uL (3.50-5.40) Hemoglobin 8.0 g/dL (12.0-15.5) Hematocrit 23.9 % (36.0-47.0) Mean Corpuscular Volume 98 fL (79-100) Mean Corpuscular Hemoglobin 33 pg (25-35) Mean Corpuscular Hemoglobin Concent 33 g/dL (31-37) Red Cell Distribution Width 18.3 % (11.5-14.5) Platelet Count 209 x10^3/uL (140-400) Sodium Level 135 mmol/L (136-145) Potassium Level 4.0 mmol/L (3.5-5.1) Chloride Level 103 mmol/L (98-107) Carbon Dioxide Level 25 mmol/L (21-32) Anion Gap 7 (6-14) Blood Urea Nitrogen 54 mg/dL (7-20) Creatinine 2.0 mg/dL (0.6-1.0) Estimated GFR (Cockcroft-Gault) 26.5 Glucose Level 175 mg/dL (70-99) Calcium Level 8.3 mg/dL (8.5-10.1) Phosphorus Level 3.9 mg/dL (2.6-4.7) Glucose (Fingerstick) 183 mg/dL (70-99) Medications Active Scripts Medications Dose Route/Sig Max Daily Dose Days Date Category Bisoprolol Fumarate 5 Mg Tablet 10 Mg PO DAILY 07/04/19 Reported Comments Chest x-ray reviewed 07/20, poor ins film, basal effusions and volume loss CT chest 07/17 reviewed Impression . IMPRESSION: 1. Acute hypoxemic respiratory failure secondary to ARDS due to acute pancreatitis, septic shock, abdominal distention, and pneumonia.and pleural effusions. Pleural effusions secondary to abdominal process and/or general volume overload from renal failure. 2. Gallstone pancreatitis. WITH NECROSIS 3. Severe metabolic acidosis.stable 4. Acute kidney injury. ON CRRT 5. Acute gallstone pancreatitis. 6. Hypoalbuminemia. 7. Hypocalcemia. 8. Leukocytosis 9. Chronic anemia 10. Covid 19 testing negative 11. Acute /chronic anemia suspected hemorrhagic fluid in pelvis 12, Fever per ID Plan . AC mode, wean FIO2/ PEEP continue sedation Not ready for trial, still fevers, hypoxia better Transfuse prn, check H/H Not a surgical candidate per surgery Antibiotics per ID, Follow nephrology input Nutritional support with TPN HD per renal cxr with basal effusions, no intervention Prognosis is guarded DVT/GI PPX d/w RN/RT FULL CODE VINAYAK LANDRUM MD Jul 23, 2019 10:16
[2019-07-23] MEDS: TPN PER PHARMACY MC PRN (10:28)
--- NOTE | 2019-07-23 10:29 | NUR ---
Pharmacy TPN Dosing Note S: SCOTT AVILA is a 48 year old F Currently receiving Central Continuous TPN started 07/06/19 B:Pertinent PMH: Necrotizing pancreatitis Height: 5 feet, 8 inches Weight: 113.0 kg Current diet: NPO LABS: Sodium: 135 Potassium: 4 Chloride: 103 Calcium: 8.3 Corrected Calcium: 10.06 Magnesium: 2.1 CO2: 25 SCr: 2 Glucose: 175-186 Albumin: 1.8 AST: 46 ALT: 20 TPN FORMULA: TPN TYPE: Central Continuous AMINO ACIDS: 125 gm DEXTROSE: 195 gm LIPIDS: 40 gm SODIUM CHLORIDE: 90 mEq POTASSIUM CHLORIDE: 15 mEq POTASSIUM PHOSPHATE: 10 mmol MAGNESIUM: 8 mEq CALCIUM: 15 mEq INSULIN: 25 units MULTIPLE VITAMIN: 10 ml TRACE ELEMENTS: 0.5 ml(s) TPN PLAN: HD daily per nephrology planned. Phosphorous and BG trending down after changes in TPN yesterday. Cont same TPN. BMP, Phos and Mag ordered for 4/6 in the AM. R: Continue TPN as yesterday. Will monitor electrolytes, glucose, and tolerance to TPN. MIKAYLA CHU [facility] [place], 07/23/19 [id number]
--- NOTE | 2019-07-23 13:14 | PDOC ---
Dialysis Progress Note Dialysis Note Dialysis Note Seen on Hemodialysis, tolerating treatment Okay Vitals on Hemodialysis: 119/76 72 99.1 Chest: CTA Joseph Heart: S1 S2 Abdomen - Soft NTND Extremities - No Edema ARF: Dialysis as below F 180 NR 4.0 Hrs 4 K 2.5 Ca 140 Na 35 HC03 Qb 350 + Qd 500+ Heparin 0 Units Uf 3 Kgs or to dry weight as tolerated May give 25-50 gms of 25% Albumin if needed to maintain Hemodynamic stability Treatment plan reviewed and discussed with engineering secretary Vitals Vital Signs Vital Signs Date Time Temp Pulse Resp B/P (MAP) Pulse Ox O2 Delivery O2 Flow Rate FiO2 07/23/19 12:21 99 Ventilator 07/23/19 09:00 86 25 111/74 (86) 07/23/19 08:00 98.4 98.4 07/22/19 05:12 6.0 Labs Last Labs Laboratory Tests Test 07/21/19 17:16 07/22/19 05:51 07/22/19 06:00 07/22/19 13:11 Glucose (Fingerstick) 211 mg/dL (70-99) 209 mg/dL (70-99) 159 mg/dL (70-99) White Blood Count 15.7 x10^3/uL (4.0-11.0) Red Blood Count 2.57 x10^6/uL (3.50-5.40) Hemoglobin 8.2 g/dL (12.0-15.5) Hematocrit 25.8 % (36.0-47.0) Mean Corpuscular Volume 101 fL (79-100) Mean Corpuscular Hemoglobin 32 pg (25-35) Mean Corpuscular Hemoglobin Concent 32 g/dL (31-37) Red Cell Distribution Width 18.9 % (11.5-14.5) Platelet Count 233 x10^3/uL (140-400) Neutrophils (%) (Auto) 83 % (31-73) Lymphocytes (%) (Auto) 7 % (24-48) Monocytes (%) (Auto) 8 % (0-9) Eosinophils (%) (Auto) 2 % (0-3) Basophils (%) (Auto) 0 % (0-3) Neutrophils # (Auto) 13.0 x10^3/uL (1.8-7.7) Lymphocytes # (Auto) 1.1 x10^3/uL (1.0-4.8) Monocytes # (Auto) 1.2 x10^3/uL (0.0-1.1) Eosinophils # (Auto) 0.4 x10^3/uL (0.0-0.7) Basophils # (Auto) 0.1 x10^3/uL (0.0-0.2) Segmented Neutrophils % 58 % (35-66) Band Neutrophils % 19 % (0-9) Lymphocytes % 13 % (24-48) Monocytes % 4 % (0-10) Eosinophils % 4 % (0-5) Myelocytes % 2 % (0-0) Nucleated Red Blood Cells 2 Platelet Estimate Adequate (ADEQUATE) Giant Platelets Occ Anisocytosis Slight Sodium Level 141 mmol/L (136-145) Potassium Level 3.8 mmol/L (3.5-5.1) Chloride Level 107 mmol/L (98-107) Carbon Dioxide Level 20 mmol/L (21-32) Anion Gap 14 (6-14) Blood Urea Nitrogen 63 mg/dL (7-20) Creatinine 2.0 mg/dL (0.6-1.0) Estimated GFR (Cockcroft-Gault) 26.5 BUN/Creatinine Ratio 32 (6-20) Glucose Level 212 mg/dL (70-99) Calcium Level 8.0 mg/dL (8.5-10.1) Phosphorus Level 4.7 mg/dL (2.6-4.7) Magnesium Level 2.1 mg/dL (1.8-2.4) Total Bilirubin 0.9 mg/dL (0.2-1.0) Aspartate Amino Transf (AST/SGOT) 46 U/L (15-37) Alanine Aminotransferase (ALT/SGPT) 20 U/L (14-59) Alkaline Phosphatase 95 U/L (46-116) Total Protein 4.1 g/dL (6.4-8.2) Albumin 1.8 g/dL (3.4-5.0) Albumin/Globulin Ratio 0.8 (1.0-1.7) Lipase 823 U/L (73-393) Test 07/22/19 15:30 07/22/19 16:57 07/22/19 23:58 07/23/19 04:40 O2 Saturation 97 % (92-99) Arterial Blood pH 7.55 (7.35-7.45) Arterial Blood pCO2 at Patient Temp 27 mmHg (35-46) Arterial Blood pO2 at Patient Temp 99 mmHg (75-108) Arterial Blood HCO3 23 mmol/L (21-28) Arterial Blood Base Excess 1 mmol/L (-3-3) FiO2 40 Glucose (Fingerstick) 185 mg/dL (70-99) 186 mg/dL (70-99) White Blood Count 11.2 x10^3/uL (4.0-11.0) Red Blood Count 2.43 x10^6/uL (3.50-5.40) Hemoglobin 8.0 g/dL (12.0-15.5) Hematocrit 23.9 % (36.0-47.0) Mean Corpuscular Volume 98 fL (79-100) Mean Corpuscular Hemoglobin 33 pg (25-35) Mean Corpuscular Hemoglobin Concent 33 g/dL (31-37) Red Cell Distribution Width 18.3 % (11.5-14.5) Platelet Count 209 x10^3/uL (140-400) Sodium Level 135 mmol/L (136-145) Potassium Level 4.0 mmol/L (3.5-5.1) Chloride Level 103 mmol/L (98-107) Carbon Dioxide Level 25 mmol/L (21-32) Anion Gap 7 (6-14) Blood Urea Nitrogen 54 mg/dL (7-20) Creatinine 2.0 mg/dL (0.6-1.0) Estimated GFR (Cockcroft-Gault) 26.5 Glucose Level 175 mg/dL (70-99) Calcium Level 8.3 mg/dL (8.5-10.1) Phosphorus Level 3.9 mg/dL (2.6-4.7) Test 07/23/19 05:22 Glucose (Fingerstick) 183 mg/dL (70-99) Laboratory Tests Test 07/22/19 15:30 07/22/19 16:57 07/22/19 23:58 07/23/19 04:40 O2 Saturation 97 % (92-99) Arterial Blood pH 7.55 (7.35-7.45) Arterial Blood pCO2 at Patient Temp 27 mmHg (35-46) Arterial Blood pO2 at Patient Temp 99 mmHg (75-108) Arterial Blood HCO3 23 mmol/L (21-28) Arterial Blood Base Excess 1 mmol/L (-3-3) FiO2 40 Glucose (Fingerstick) 185 mg/dL (70-99) 186 mg/dL (70-99) White Blood Count 11.2 x10^3/uL (4.0-11.0) Red Blood Count 2.43 x10^6/uL (3.50-5.40) Hemoglobin 8.0 g/dL (12.0-15.5) Hematocrit 23.9 % (36.0-47.0) Mean Corpuscular Volume 98 fL (79-100) Mean Corpuscular Hemoglobin 33 pg (25-35) Mean Corpuscular Hemoglobin Concent 33 g/dL (31-37) Red Cell Distribution Width 18.3 % (11.5-14.5) Platelet Count 209 x10^3/uL (140-400) Sodium Level 135 mmol/L (136-145) Potassium Level 4.0 mmol/L (3.5-5.1) Chloride Level 103 mmol/L (98-107) Carbon Dioxide Level 25 mmol/L (21-32) Anion Gap 7 (6-14) Blood Urea Nitrogen 54 mg/dL (7-20) Creatinine 2.0 mg/dL (0.6-1.0) Estimated GFR (Cockcroft-Gault) 26.5 Glucose Level 175 mg/dL (70-99) Calcium Level 8.3 mg/dL (8.5-10.1) Phosphorus Level 3.9 mg/dL (2.6-4.7) Test 07/23/19 05:22 Glucose (Fingerstick) 183 mg/dL (70-99) Assessment Assessment Problems Medical Problems: (1) Acute pancreatitis Status: Acute (2) Cholelithiasis Status: Acute Plan Plan of Care Problems Medical Problems: (1) Acute pancreatitis Status: Acute (2) Cholelithiasis Status: Acute ALEJANDRA JONES MD Jul 23, 2019 13:14
[2019-07-23] MEDS: DAPTOmycin (GENERIC) IVPB 500 MG in IV NORMAL SALINE 50ML 50 ML IV SCH (15:01)
[2019-07-23 15:32] LABS: BILIRUBIN,URINE SMALL (NEG); CLARITY,URINE CLOUDY; COLOR,URINE RED; NITRITE,URINE POSITIVE (NEG); PROTEIN,URINE 100 mg/dL (NEG-TRACE); UROBILINOGEN,URINE 0.2 mg/dL (0.2 mg/dL)
[2019-07-23 15:33] LABS: AMORPHOUS SEDIMENT,UR PRESENT /HPF; BACTERIA,URINE 0 /HPF (0-FEW); RBC,URINE RARE /HPF (0-2); SQUAMOUS EPITHELIAL CELL,UR OCC /LPF
[2019-07-23 18:04] LABS: BASE EXCESS ABG -1 mmol/L (-3-3); HCO3 ABG 22 mmol/L (21-28); PCO2 ABG 30 mmHg (35-46); PO2 ABG 122 mmHg (75-108); SAT O2 ABG 98 % (92-99)
[2019-07-23 18:08] LABS: FIO2 ABG 50
--- NOTE | 2019-07-23 19:30 | PDOC ---
PROGRESS NOTES Chief Complaint Chief Complaint Respiratory failure requiring mechanical ventilation Severe Acute gallstone pancreatitis (not a surgical candidate at this time) with necrosis Acute kidney failure now requiring dialysis Salpingitis Gallstones (Calculus of gallbladder with acute cholecystitis without obstruction) HTN Leukocytosis Hypoxia Uterine fibroid Hypoxia with respiratory failure Intractable pain Intractable nausea Covid 19 negative. Acute on chronic anemia will have to follow up since there is suspicion for hemorrhagic fluid in pelvis Plan: continue supportive measures grim prognosis discussed with surgical physician assistant planning of trach for thursday if unable to extubate History of Present Illness History of Present Illness 07/23/2019 No acute events reported overnight, patient receiving dialysis today, case discussed with nursing staff patient in no acute distress during my visit 07/22/2019 No new changes remains critically ill, off CRRT, still planning for trach on Thursday unless we manage to wean over the weekend 07/21/2019 Continues to remain critically ill. The patient unable to be taken off ventilatory support as of yet., Discussed with pulmonary client care consultant. Planning all tracheostomy on Thursday if he is unable to be weaned off vent 07/20/2019 No acute events reported overnight, no fever or chills, remains critically stable, discussed with mother at bedside. [id number] Patient seen and examined in the ICU She is critically ill Mechanically ventilated Assist-control/25/450/30 with 8 of PEEP She is on cefepime daptomycin Flagyl and micafungin GEN for antibiotic coverage Also getting TPN and CRRT Sedated with Versed Getting IV albumin also She is tachycardic at 112 bpm Temp max 100.0 White blood count is down from 45,000 35,000 today Chart reviewed Discussed with RN [id number] Patient seen and examined in the ICU She remains very critically ill Going for a CT of the abdomen chest and pelvis Ventilated : On assist control 40% FiO2 Discussed with RN Chart reviewed [id number] Patient seen and examined in the ICU She is still on CRRT although we plan to change to hemodialysis soon Chart reviewed Discussed with RN Hemoglobin down to 6.9 (suspect CRRT related , Will let nephrology consider transfusion while on dialysis) [id number] Patient seen and examined in the ICU She is mechanically ventilated Before meals/25/450/30% Also on CRRT Very critically ill Chart reviewed Discussed with RN [id number] Patient seen and examined in the ICU She is now been transferred to the Covid 19 unit so we can rule out Covid and keep her in isolation Very critically ill Intubated and ventilated Assist control 40% Chart reviewed Discussed with RN Still on CRRT Getting a chest x-ray now Very concerned about her prognosis [id number] Patient seen and examined in the ICU She is extremely critically ill Remains mechanically ventilated with assist control/25/450/40% Also on continuous renal replacement therapy Chart reviewed Discussed with RN She has TPN hanging Also on pressors [id number] Patient seen and examined in the ICU She is still requiring CRRT On the vent with assist control but her FiO2 is down to 40% from yesterday Slightly better but still very critically ill Discussed with RN Chart reviewed [id number] Patient seen and examined in the ICU She remains extremely critically ill On IV fentanyl IV Versed IV Doxy On the vent Assist-control/25/450/70% She is critically ill Discussed with RN Chart reviewed Patient is currently on CRRT as well [id number] Patient seen and examined in the ICU She had to be intubated this morning On assist-control 25/450/100% with 10 of PEEP and only satting 87% She is extremely critically ill I'm not sure if she will survive Chart reviewed Discussed with RN Ms Diaz is a 48yo F w/ PMHx HTN, prediabetes who presents the emergency room complaints of abdominal pain. Patient described off and on 3 days. She states is constant, described as a squeezing sensation in a band-like distribution. + nausea, vomiting. She denies any fever or diarrhea. Patient denies any abdominal surgical procedures. She states is worse with movements, car ride. Pain initially was upper abdomen however now pretty much generalized. Last bowel movement was 07/03/2019. Nothing makes her pain better. Patient denies any shortness of breath. She does state the pain moves into her chest. Denies any headache or visual changes. Lipase [id number], AST 401, ALT 249, Bilirubin 1.4. CT abdomen confirms pancreatic inflammation, peripancreatic fluid and inflammatory changes around the pancreas consistent with pancreatitis. Cholelithiasis and 1.4cm uterine fibroid as well as possible left salpingitis. Admitted for further care GI, General surgery, ID, Pulm consulted. 07/04: Overnight per report no urine output. Added dilaudid for pain, PICC placed per IR. Renal US negative.Seen bedside in ICU, given 2L additional NSS and alb umin infusion. Still hypotensive, started on levophed. Repeat CT abdomen with necrosis. Updated her fiancee 07/05: Sats are only 87% on nasal cannula oxygen. Dialysis catheter per nephrology 07/06: She is now on BiPAP appears more ill, now on dialysis 07/07: Seen on BiPAP. Her mother and another family member are present and seemed to be good support for her. Currently on dialysis. Appears critically ill 07/08: Overnight Tmax 101.7 , still on BiPAP FiO2 40%, still on low dose Levophed gtt, TPN initiated. On dialysis Overnight still febrile. Dialysis today. She wakes up and responds to pain. No CP. Vitals Vitals Vital Signs Date Time Temp Pulse Resp B/P (MAP) Pulse Ox O2 Delivery O2 Flow Rate FiO2 07/23/19 18:27 76 18 80/53 (62) 100 Ventilator 07/23/19 17:00 97.8 97.8 Physical Exam Physical Exam GENERAL: Orally intubated/sedated - generalized anasarca HEENT: Pupils equal, ETT, OGT NECK: Supple LUNGS: Diminished aeration bases HEART: S1, S2, regular ABDOMEN: Distended, hypoactive BS, Rectal tube in place : Lind EXTREMITIES: Generalized edema, no cyanosis - some mottling, [place] boots & SCDs bilaterally DERMATOLOGIC: Warm and dry. No generalized rash. CENTRAL NERVOUS SYSTEM: Sedated RIJ Temp HDC, RUE-PICC & LIJ General: Other (sedated ) Heart: Other (increased rate) Abdomen: Other (firm. distended ) Extremities: No edema, Other (SOME CLUBBING ) Skin: Other (mottling noted to extremities ) Labs LABS Laboratory Tests Test 07/22/19 23:58 07/23/19 04:40 07/23/19 05:22 07/23/19 14:54 Glucose (Fingerstick) 186 mg/dL (70-99) 183 mg/dL (70-99) White Blood Count 11.2 x10^3/uL (4.0-11.0) Red Blood Count 2.43 x10^6/uL (3.50-5.40) Hemoglobin 8.0 g/dL (12.0-15.5) Hematocrit 23.9 % (36.0-47.0) Mean Corpuscular Volume 98 fL (79-100) Mean Corpuscular Hemoglobin 33 pg (25-35) Mean Corpuscular Hemoglobin Concent 33 g/dL (31-37) Red Cell Distribution Width 18.3 % (11.5-14.5) Platelet Count 209 x10^3/uL (140-400) Sodium Level 135 mmol/L (136-145) Potassium Level 4.0 mmol/L (3.5-5.1) Chloride Level 103 mmol/L (98-107) Carbon Dioxide Level 25 mmol/L (21-32) Anion Gap 7 (6-14) Blood Urea Nitrogen 54 mg/dL (7-20) Creatinine 2.0 mg/dL (0.6-1.0) Estimated GFR (Cockcroft-Gault) 26.5 Glucose Level 175 mg/dL (70-99) Calcium Level 8.3 mg/dL (8.5-10.1) Phosphorus Level 3.9 mg/dL (2.6-4.7) Urine Collection Type Unknown Urine Color Red Urine Clarity Cloudy Urine pH 5.0 (<5.0-8.0) Urine Specific [place] 1.025 (1.000-1.030) Urine Protein 100 mg/dL (NEG-TRACE) Urine Glucose (UA) Negative mg/dL (NEG) Urine Ketones (Stick) Trace mg/dL (NEG) Urine Blood Large (NEG) Urine Nitrite Positive (NEG) Urine Bilirubin Small (NEG) Urine Urobilinogen Dipstick 0.2 mg/dL (0.2 mg/dL) Urine Leukocyte Esterase Small (NEG) Urine RBC Rare /HPF (0-2) Urine WBC 1-4 /HPF (0-4) Urine Squamous Epithelial Cells Occ /LPF Urine Amorphous Sediment Present /HPF Urine Bacteria 0 /HPF (0-FEW) Test 07/23/19 17:50 07/23/19 18:38 O2 Saturation 98 % (92-99) Arterial Blood pH 7.48 (7.35-7.45) Arterial Blood pCO2 at Patient Temp 30 mmHg (35-46) Arterial Blood pO2 at Patient Temp 122 mmHg (75-108) Arterial Blood HCO3 22 mmol/L (21-28) Arterial Blood Base Excess -1 mmol/L (-3-3) FiO2 50 Glucose (Fingerstick) 171 mg/dL (70-99) Assessment and Plan Assessmemt and Plan Problems Medical Problems: (1) Acute pancreatitis Status: Acute (2) Cholelithiasis Status: Acute Comment Review of Relevant I have reviewed the following items kolby (where applicable) has been applied. Labs Laboratory Tests Test 07/22/19 05:51 07/22/19 06:00 07/22/19 13:11 07/22/19 15:30 Glucose (Fingerstick) 209 mg/dL (70-99) 159 mg/dL (70-99) White Blood Count 15.7 x10^3/uL (4.0-11.0) Red Blood Count 2.57 x10^6/uL (3.50-5.40) Hemoglobin 8.2 g/dL (12.0-15.5) Hematocrit 25.8 % (36.0-47.0) Mean Corpuscular Volume 101 fL (79-100) Mean Corpuscular Hemoglobin 32 pg (25-35) Mean Corpuscular Hemoglobin Concent 32 g/dL (31-37) Red Cell Distribution Width 18.9 % (11.5-14.5) Platelet Count 233 x10^3/uL (140-400) Neutrophils (%) (Auto) 83 % (31-73) Lymphocytes (%) (Auto) 7 % (24-48) Monocytes (%) (Auto) 8 % (0-9) Eosinophils (%) (Auto) 2 % (0-3) Basophils (%) (Auto) 0 % (0-3) Neutrophils # (Auto) 13.0 x10^3/uL (1.8-7.7) Lymphocytes # (Auto) 1.1 x10^3/uL (1.0-4.8) Monocytes # (Auto) 1.2 x10^3/uL (0.0-1.1) Eosinophils # (Auto) 0.4 x10^3/uL (0.0-0.7) Basophils # (Auto) 0.1 x10^3/uL (0.0-0.2) Segmented Neutrophils % 58 % (35-66) Band Neutrophils % 19 % (0-9) Lymphocytes % 13 % (24-48) Monocytes % 4 % (0-10) Eosinophils % 4 % (0-5) Myelocytes % 2 % (0-0) Nucleated Red Blood Cells 2 Platelet Estimate Adequate (ADEQUATE) Giant Platelets Occ Anisocytosis Slight Sodium Level 141 mmol/L (136-145) Potassium Level 3.8 mmol/L (3.5-5.1) Chloride Level 107 mmol/L (98-107) Carbon Dioxide Level 20 mmol/L (21-32) Anion Gap 14 (6-14) Blood Urea Nitrogen 63 mg/dL (7-20) Creatinine 2.0 mg/dL (0.6-1.0) Estimated GFR (Cockcroft-Gault) 26.5 BUN/Creatinine Ratio 32 (6-20) Glucose Level 212 mg/dL (70-99) Calcium Level 8.0 mg/dL (8.5-10.1) Phosphorus Level 4.7 mg/dL (2.6-4.7) Magnesium Level 2.1 mg/dL (1.8-2.4) Total Bilirubin 0.9 mg/dL (0.2-1.0) Aspartate Amino Transf (AST/SGOT) 46 U/L (15-37) Alanine Aminotransferase (ALT/SGPT) 20 U/L (14-59) Alkaline Phosphatase 95 U/L (46-116) Total Protein 4.1 g/dL (6.4-8.2) Albumin 1.8 g/dL (3.4-5.0) Albumin/Globulin Ratio 0.8 (1.0-1.7) Lipase 823 U/L (73-393) O2 Saturation 97 % (92-99) Arterial Blood pH 7.55 (7.35-7.45) Arterial Blood pCO2 at Patient Temp 27 mmHg (35-46) Arterial Blood pO2 at Patient Temp 99 mmHg (75-108) Arterial Blood HCO3 23 mmol/L (21-28) Arterial Blood Base Excess 1 mmol/L (-3-3) FiO2 40 Test 07/22/19 16:57 07/22/19 23:58 07/23/19 04:40 07/23/19 05:22 Glucose (Fingerstick) 185 mg/dL (70-99) 186 mg/dL (70-99) 183 mg/dL (70-99) White Blood Count 11.2 x10^3/uL (4.0-11.0) Red Blood Count 2.43 x10^6/uL (3.50-5.40) Hemoglobin 8.0 g/dL (12.0-15.5) Hematocrit 23.9 % (36.0-47.0) Mean Corpuscular Volume 98 fL (79-100) Mean Corpuscular Hemoglobin 33 pg (25-35) Mean Corpuscular Hemoglobin Concent 33 g/dL (31-37) Red Cell Distribution Width 18.3 % (11.5-14.5) Platelet Count 209 x10^3/uL (140-400) Sodium Level 135 mmol/L (136-145) Potassium Level 4.0 mmol/L (3.5-5.1) Chloride Level 103 mmol/L (98-107) Carbon Dioxide Level 25 mmol/L (21-32) Anion Gap 7 (6-14) Blood Urea Nitrogen 54 mg/dL (7-20) Creatinine 2.0 mg/dL (0.6-1.0) Estimated GFR (Cockcroft-Gault) 26.5 Glucose Level 175 mg/dL (70-99) Calcium Level 8.3 mg/dL (8.5-10.1) Phosphorus Level 3.9 mg/dL (2.6-4.7) Test 07/23/19 14:54 07/23/19 17:50 07/23/19 18:38 Urine Collection Type Unknown Urine Color Red Urine Clarity Cloudy Urine pH 5.0 (<5.0-8.0) Urine Specific [place] 1.025 (1.000-1.030) Urine Protein 100 mg/dL (NEG-TRACE) Urine Glucose (UA) Negative mg/dL (NEG) Urine Ketones (Stick) Trace mg/dL (NEG) Urine Blood Large (NEG) Urine Nitrite Positive (NEG) Urine Bilirubin Small (NEG) Urine Urobilinogen Dipstick 0.2 mg/dL (0.2 mg/dL) Urine Leukocyte Esterase Small (NEG) Urine RBC Rare /HPF (0-2) Urine WBC 1-4 /HPF (0-4) Urine Squamous Epithelial Cells Occ /LPF Urine Amorphous Sediment Present /HPF Urine Bacteria 0 /HPF (0-FEW) O2 Saturation 98 % (92-99) Arterial Blood pH 7.48 (7.35-7.45) Arterial Blood pCO2 at Patient Temp 30 mmHg (35-46) Arterial Blood pO2 at Patient Temp 122 mmHg (75-108) Arterial Blood HCO3 22 mmol/L (21-28) Arterial Blood Base Excess -1 mmol/L (-3-3) FiO2 50 Glucose (Fingerstick) 171 mg/dL (70-99) Laboratory Tests Test 07/22/19 23:58 07/23/19 04:40 07/23/19 05:22 07/23/19 14:54 Glucose (Fingerstick) 186 mg/dL (70-99) 183 mg/dL (70-99) White Blood Count 11.2 x10^3/uL (4.0-11.0) Red Blood Count 2.43 x10^6/uL (3.50-5.40) Hemoglobin 8.0 g/dL (12.0-15.5) Hematocrit 23.9 % (36.0-47.0) Mean Corpuscular Volume 98 fL (79-100) Mean Corpuscular Hemoglobin 33 pg (25-35) Mean Corpuscular Hemoglobin Concent 33 g/dL (31-37) Red Cell Distribution Width 18.3 % (11.5-14.5) Platelet Count 209 x10^3/uL (140-400) Sodium Level 135 mmol/L (136-145) Potassium Level 4.0 mmol/L (3.5-5.1) Chloride Level 103 mmol/L (98-107) Carbon Dioxide Level 25 mmol/L (21-32) Anion Gap 7 (6-14) Blood Urea Nitrogen 54 mg/dL (7-20) Creatinine 2.0 mg/dL (0.6-1.0) Estimated GFR (Cockcroft-Gault) 26.5 Glucose Level 175 mg/dL (70-99) Calcium Level 8.3 mg/dL (8.5-10.1) Phosphorus Level 3.9 mg/dL (2.6-4.7) Urine Collection Type Unknown Urine Color Red Urine Clarity Cloudy Urine pH 5.0 (<5.0-8.0) Urine Specific [place] 1.025 (1.000-1.030) Urine Protein 100 mg/dL (NEG-TRACE) Urine Glucose (UA) Negative mg/dL (NEG) Urine Ketones (Stick) Trace mg/dL (NEG) Urine Blood Large (NEG) Urine Nitrite Positive (NEG) Urine Bilirubin Small (NEG) Urine Urobilinogen Dipstick 0.2 mg/dL (0.2 mg/dL) Urine Leukocyte Esterase Small (NEG) Urine RBC Rare /HPF (0-2) Urine WBC 1-4 /HPF (0-4) Urine Squamous Epithelial Cells Occ /LPF Urine Amorphous Sediment Present /HPF Urine Bacteria 0 /HPF (0-FEW) Test 07/23/19 17:50 07/23/19 18:38 O2 Saturation 98 % (92-99) Arterial Blood pH 7.48 (7.35-7.45) Arterial Blood pCO2 at Patient Temp 30 mmHg (35-46) Arterial Blood pO2 at Patient Temp 122 mmHg (75-108) Arterial Blood HCO3 22 mmol/L (21-28) Arterial Blood Base Excess -1 mmol/L (-3-3) FiO2 50 Glucose (Fingerstick) 171 mg/dL (70-99) Microbiology 07/12/19 Blood Culture - Final, Complete NO GROWTH AFTER 5 DAYS Medications Current Medications Sodium Chloride 1,000 ml @ 1,000 mls/hr Q1H IV Last administered on 07/04/19at 03:00; Start 07/04/19 at 03:00; Stop 07/04/19 at 03:59; Status DC Ondansetron HCl (Zofran) 4 mg 1X ONCE IVP Last administered on 07/04/19at 03:27; Start 07/04/19 at 03:00; Stop 07/04/19 at 03:01; Status DC Morphine Sulfate (Morphine Sulfate) 4 mg 1X ONCE IV ; Start 07/04/19 at 03:00; Stop 07/04/19 at 03:01; Status Cancel Ketorolac Tromethamine (Toradol 30mg Vial) 30 mg 1X ONCE IV Last administered on 07/04/19at 02:54; Start 07/04/19 at 03:00; Stop 07/04/19 at 03:01; Status DC Fentanyl Citrate (Fentanyl 2ml Vial) 25 mcg 1X ONCE IVP Last administered on 07/04/19at 03:23; Start 07/04/19 at 03:30; Stop 07/04/19 at 03:31; Status DC Fentanyl Citrate (Fentanyl 2ml Vial) 100 mcg STK-MED ONCE .ROUTE ; Start 07/04/19 at 03:18; Stop 07/04/19 at 03:18; Status DC Iohexol (Omnipaque 350 Mg/ml) 90 ml 1X ONCE IV Last administered on 07/04/19at 03:25; Start 07/04/19 at 03:30; Stop 07/04/19 at 03:31; Status DC Info (CONTRAST GIVEN -- Rx MONITORING) 1 each PRN DAILY PRN MC SEE COMMENTS; Start 07/04/19 at 03:30; Stop 07/06/19 at 03:29; Status DC Hydromorphone HCl (Dilaudid) 0.5 mg 1X ONCE IV Last administered on 07/04/19at 03:55; Start 07/04/19 at 04:30; Stop 07/04/19 at 04:32; Status DC Ondansetron HCl (Zofran) 4 mg PRN Q8HRS PRN IV NAUSEA/VOMITING 1ST CHOICE; Start 07/04/19 at 05:00; Stop 07/04/19 at 09:27; Status DC Morphine Sulfate (Morphine Sulfate) 2 mg PRN Q2HR PRN IV SEVERE PAIN 7-10 Last administered on 07/05/19at 12:26; Start 07/04/19 at 05:00; Stop 07/05/19 at 14:15; Status DC Sodium Chloride 1,000 ml @ 125 mls/hr Q8H IV Last administered on 07/04/19at 20:56; Start 07/04/19 at 05:00; Stop 07/05/19 at 04:59; Status DC Hydromorphone HCl (Dilaudid) 0.5 mg PRN Q3HRS PRN IV SEVERE PAIN 7-10 Last administered on 07/05/19at 10:06; Start 07/04/19 at 05:00; Stop 07/05/19 at 12:01; Status DC Piperacillin Sod/ Tazobactam Sod 4.5 gm/Sodium Chloride 100 ml @ 200 mls/hr 1X ONCE IV Last administered on 07/04/19at 05:44; Start 07/04/19 at 06:00; Stop 07/04/19 at 06:29; Status DC Ondansetron HCl (Zofran) 4 mg PRN Q4HRS PRN IV NAUSEA/VOMITING 1ST CHOICE Last administered on 07/09/19at 16:15; Start 07/04/19 at 09:30 Insulin Human Lispro (HumaLOG) 0-9 UNITS Q6HRS SQ Last administered on 07/23/19at 19:12; Start 07/04/19 at 09:30 Dextrose (Dextrose 50%-Water Syringe) 12.5 gm PRN Q15MIN PRN IV SEE COMMENTS; Start 07/04/19 at 09:30 Pantoprazole Sodium (PROTONIX VIAL for IV PUSH) 40 mg DAILYAC IVP Last administered on 07/23/19at 07:33; Start 07/04/19 at 11:30 Prochlorperazine Edisylate (Compazine) 10 mg PRN Q6HRS PRN IV NAUSEA/VOMITING, 2nd CHOICE Last administered on 07/05/19at 00:42; Start 07/04/19 at 17:45 Atenolol (Tenormin) 100 mg DAILY PO ; Start 07/05/19 at 09:00; Stop 07/04/19 at 20:08; Status DC Metoprolol Tartrate (Lopressor Vial) 2.5 mg Q6HRS IVP Last administered on 07/05/19at 05:51; Start 07/04/19 at 20:15; Stop 07/05/19 at 10:02; Status DC Metoprolol Tartrate (Lopressor Vial) 5 mg Q6HRS IVP Last administered on 07/14/19at 00:12; Start 07/05/19 at 10:15; Stop 07/16/19 at 08:48; Status DC Hydromorphone HCl (Dilaudid) 1 mg PRN Q3HRS PRN IV SEVERE PAIN 7-10 Last administered on 07/11/19at 05:13; Start 07/05/19 at 12:00; Stop 07/19/19 at 00:25; Status DC Lidocaine HCl (Buffered Lidocaine 1%) 3 ml STK-MED ONCE .ROUTE ; Start 07/05/19 at 12:55; Stop 07/05/19 at 12:56; Status DC Albumin Human 500 ml @ 125 mls/hr 1X ONCE IV Last administered on 07/05/19at 14:33; Start 07/05/19 at 14:30; Stop 07/05/19 at 18:32; Status DC Norepinephrine Bitartrate 8 mg/ Dextrose 258 ml @ 17.299 mls/ hr CONT PRN IV PER PROTOCOL Last administered on 07/22/19at 07:51; Start 07/05/19 at 15:30 Sodium Chloride 1,000 ml @ 125 mls/hr Q8H IV Last administered on 07/05/19at 21:04; Start 07/05/19 at 16:00; Stop 07/06/19 at 02:42; Status DC Albumin Human 500 ml @ 125 mls/hr PRN BID PRN IV After every 2L NSS & BP < 90mm Last administered on 07/20/19at 14:21; Start 07/05/19 at 16:00 Iohexol (Omnipaque 300 Mg/ml) 60 ml 1X ONCE IV Last administered on 07/05/19at 17:20; Start 07/05/19 at 17:00; Stop 07/05/19 at 17:01; Status DC Info (CONTRAST GIVEN -- Rx MONITORING) 1 each PRN DAILY PRN MC SEE COMMENTS; Start 07/05/19 at 17:00; Stop 07/07/19 at 16:59; Status DC Meropenem 1 gm/ Sodium Chloride 100 ml @ 200 mls/hr Q8HRS IV Last administered on 07/06/19at 05:45; Start 07/05/19 at 20:00; Stop 07/06/19 at 08:48; Status DC Furosemide (Lasix) 40 mg 1X ONCE IVP Last administered on 07/05/19at 22:12; Start 07/05/19 at 22:30; Stop 07/05/19 at 22:31; Status DC Calcium Chloride 1000 mg/Sodium Chloride 110 ml @ 220 mls/hr 1X ONCE IV Last administered on 07/05/19at 22:11; Start 07/05/19 at 22:30; Stop 07/05/19 at 22:59; Status DC Albuterol Sulfate (Ventolin Neb Soln) 2.5 mg 1X ONCE NEB Last administered on 07/06/19at 00:56; Start 07/05/19 at 22:30; Stop 07/05/19 at 22:31; Status DC Insulin Human Regular (HumuLIN R VIAL) 5 unit 1X ONCE IV Last administered on 07/05/19at 22:14; Start 07/05/19 at 22:30; Stop 07/05/19 at 22:31; Status DC Magnesium Sulfate 50 ml @ 25 mls/hr 1X ONCE IV Last administered on 07/06/19at 02:57; Start 07/06/19 at 03:00; Stop 07/06/19 at 04:59; Status DC Calcium Gluconate 1000 mg/Sodium Chloride 110 ml @ 220 mls/hr 1X ONCE IV Last administered on 07/06/19at 02:46; Start 07/06/19 at 03:00; Stop 07/06/19 at 03:29; Status DC Sodium Chloride 1,000 ml @ 200 mls/hr Q5H IV Last administered on 07/06/19at 02:46; Start 07/06/19 at 03:00; Stop 07/06/19 at 10:21; Status DC Calcium Gluconate 1000 mg/Sodium Chloride 110 ml @ 220 mls/hr 1X ONCE IV Last administered on 07/06/19at 03:21; Start 07/06/19 at 03:30; Stop 07/06/19 at 03:59; Status DC Sodium Bicarbonate 50 meq/Sodium Chloride 1,050 ml @ 75 mls/hr Q14H IV Last administered on 07/10/19at 21:10; Start 07/06/19 at 07:30; Stop 07/11/19 at 10:2 8; Status DC Calcium Gluconate 2000 mg/Sodium Chloride 120 ml @ 220 mls/hr 1X ONCE IV Last administered on 07/06/19at 09:05; Start 07/06/19 at 07:30; Stop 07/06/19 at 08:02; Status DC Lidocaine HCl (Xylocaine-Mpf 1% 2ml Vial) 2 ml STK-MED ONCE .ROUTE ; Start 07/06/19 at 08:47; Stop 07/06/19 at 08:47; Status DC Meropenem 500 mg/ Sodium Chloride 50 ml @ 100 mls/hr Q12HR IV Last administered on 07/11/19at 21:01; Start 07/06/19 at 18:00; Stop 07/12/19 at 07:58; Status DC Lidocaine HCl (Buffered Lidocaine 1%) 3 ml STK-MED ONCE .ROUTE ; Start 07/06/19 at 09:46; Stop 07/06/19 at 09:46; Status DC Lidocaine HCl (Buffered Lidocaine 1%) 6 ml 1X ONCE INJ Last administered on 07/06/19at 10:26; Start 07/06/19 at 10:15; Stop 07/06/19 at 10:16; Status DC Info (Tpn Per Pharmacy) 1 each PRN DAILY PRN MC SEE COMMENTS Last administered on 07/23/19at 10:28; Start 07/06/19 at 12:00 Sodium Chloride 1,000 ml @ 1,000 mls/hr Q1H PRN IV hypotension; Start 07/06/19 at 12:07; Stop 07/06/19 at 18:06; Status DC Diphenhydramine HCl (Benadryl) 25 mg 1X PRN PRN IV ITCHING; Start 07/06/19 at 12:15; Stop 07/07/19 at 12:14; Status DC Diphenhydramine HCl (Benadryl) 25 mg 1X PRN PRN IV ITCHING; Start 07/06/19 at 12:15; Stop 07/07/19 at 12:14; Status DC Sodium Chloride 1,000 ml @ 400 mls/hr Q2H30M PRN IV PATENCY; Start 07/06/19 at 12:07; Stop 07/07/19 at 00:06; Status DC Info (PHARMACY MONITORING -- do not chart) 1 each PRN DAILY PRN MC SEE COMMENTS; Start 07/06/19 at 12:15; Stop 07/08/19 at 08:13; Status DC Sodium Chloride 90 meq/Calcium Gluconate 10 meq/ Multivitamins 10 ml/Chromium/ Copper/Manganese/ Seleni/Zn 1 ml/ Total Parenteral Nutrition/Amino Acids /Dextrose/ Fat Emulsion Intravenous 55.005 ml @ 2.292 mls/hr TPN CONT IV ; Start 07/06/19 at 22:00; Stop 07/06/19 at 12:33; Status DC Info (Tpn Per Pharmacy) 1 each PRN DAILY PRN MC SEE COMMENTS; Start 07/06/19 at 12:30; Status UNV Sodium Chloride 90 meq/Calcium Gluconate 10 meq/ Multivitamins 10 ml/Chromium/ Copper/Manganese/ Seleni/Zn 0.5 ml/ Total Parenteral Nutrition/Amino Acids/Dextrose/ Fat Emulsion Intravenous 1,512 ml @ 63 mls/hr TPN CONT IV Last administered on 07/06/19at 22:06; Start 07/06/19 at 22:00; Stop 07/07/19 at 21:59; Status DC Calcium Carbonate/ Glycine (Tums) 500 mg PRN AFTMEALHC PRN PO INDIGESTION; Sta rt 07/06/19 at 17:45 Calcium Gluconate (Calcium Gluconate) 2,000 mg 1X ONCE IVP Last administered on 07/07/19at 02:19; Start 07/07/19 at 02:15; Stop 07/07/19 at 02:16; Status DC Calcium Chloride 3000 mg/Sodium Chloride 1,030 ml @ 50 mls/hr [id number] IV Last administered on 07/09/19at 02:17; Start 07/07/19 at 08:00; Stop 07/09/19 at 15:23; Status DC Lorazepam (Ativan Inj) 1 mg PRN Q4HRS PRN IVP ANXIETY / AGITATION Last administered on 07/11/19at 00:34; Start 07/07/19 at 09:00 Sodium Chloride 1,000 ml @ 1,000 mls/hr Q1H PRN IV hypotension; Start 07/07/19 at 08:56; Stop 07/07/19 at 14:55; Status DC Albumin Human 200 ml @ 200 mls/hr 1X PRN PRN IV Hypotension; Start 07/07/19 at 09:00; Stop 07/07/19 at 14:59; Status DC Diphenhydramine HCl (Benadryl) 25 mg 1X PRN PRN IV ITCHING; Start 07/07/19 at 09:00; Stop 07/08/19 at 08:59; Status DC Diphenhydramine HCl (Benadryl) 25 mg 1X PRN PRN IV ITCHING; Start 07/07/19 at 09:00; Stop 07/08/19 at 08:59; Status DC Sodium Chloride 1,000 ml @ 400 mls/hr Q2H30M PRN IV PATENCY; Start 07/07/19 at 08:56; Stop 07/07/19 at 20:55; Status DC Info (PHARMACY MONITORING -- do not chart) 1 each PRN DAILY PRN MC SEE COMMENTS; Start 07/07/19 at 09:00; Status UNV Info (PHARMACY MONITORING -- do not chart) 1 each PRN DAILY PRN MC SEE COMMENTS; Start 07/07/19 at 09:00; Stop 07/08/19 at 08:13; Status DC Digoxin (Lanoxin) 500 mcg 1X ONCE IV Last administered on 07/07/19at 10:04; Start 07/07/19 at 10:00; Stop 07/07/19 at 10:01; Status DC Digoxin (Lanoxin) 125 mcg 1X ONCE IV Last administered on 07/07/19at 17:10; Start 07/07/19 at 18:00; Stop 07/07/19 at 18:01; Status DC Magnesium Sulfate 100 ml @ 25 mls/hr 1X ONCE IV Last administered on 07/07/19at 12:48; Start 07/07/19 at 13:00; Stop 07/07/19 at 16:59; Status DC Sodium Chloride 90 meq/Magnesium Sulfate 10 meq/ Calcium Gluconate 20 meq/ Multivitamins 10 ml/Chromium/ Copper/Manganese/ Seleni/Zn 0.5 ml/ Total Parenteral Nutrition/Amino Acids/Dextrose/ Fat Emulsion Intravenous 1,512 ml @ 63 mls/hr TPN CONT IV Last administered on 07/07/19at 22:25; Start 07/07/19 at 22:00; Stop 07/08/19 at 21:59; Status DC Sodium Chloride 1,000 ml @ 1,000 mls/hr Q1H PRN IV hypotension; Start 07/08/19 at 08:05; Stop 07/08/19 at 14:04; Status DC Albumin Human 200 ml @ 200 mls/hr 1X ONCE IV Last administered on 07/08/19at 08:57; Start 07/08/19 at 08:15; Stop 07/08/19 at 09:14; Status DC Diphenhydramine HCl (Benadryl) 25 mg 1X PRN PRN IV ITCHING; Start 07/08/19 at 08:15; Stop 07/09/19 at 08:14; Status DC Diphenhydramine HCl (Benadryl) 25 mg 1X PRN PRN IV ITCHING; Start 07/08/19 at 08:15; Stop 07/09/19 at 08:14; Status DC Sodium Chloride 1,000 ml @ 400 mls/hr Q2H30M PRN IV PATENCY; Start 07/08/19 at 08:05; Stop 07/08/19 at 20:04; Status DC Info (PHARMACY MONITORING -- do not chart) 1 each PRN DAILY PRN MC SEE COMMENTS; Start 07/08/19 at 08:15; Stop 07/12/19 at 07:57; Status DC Sodium Chloride 90 meq/Potassium Chloride 15 meq/ Potassium Phosphate 10 mmol/ Magnesium Sulfate 10 meq/Calcium Gluconate 20 meq/ Multivitamins 10 ml/Chromium/ Copper/Manganese/ Seleni/Zn 0.5 ml/ Total Parenteral Nutrition/Amino Acids/Dextrose/ Fat Emulsion Intravenous 1,512 ml @ 63 mls/hr TPN CONT IV Last administered on 07/08/19at 21:01; Start 07/08/19 at 22:00; Stop 07/09/19 at 21:59; Status DC Potassium Chloride/Water 100 ml @ 100 mls/hr 1X ONCE IV Last administered on 07/08/19at 14:09; Start 07/08/19 at 14:00; Stop 07/08/19 at 14:59; Status DC Benzocaine (Hurricaine One) 1 spray 1X ONCE MM Last administered on 07/08/19at 16:38; Start 07/08/19 at 14:30; Stop 07/08/19 at 14:31; Status DC Lidocaine HCl (Glydo (Lidocaine) Jelly) 1 ramu 1X ONCE MM Last administered on 07/08/19at 16:38; Start 07/08/19 at 14:30; Stop 07/08/19 at 14:31; Status DC Linezolid/Dextrose 300 ml @ 300 mls/hr Q12HR IV Last administered on 07/14/19at 21:04; Start 07/08/19 at 20:00; Stop 07/15/19 at 07:50; Status DC Acetaminophen (Tylenol) 650 mg PRN Q6HRS PRN PO MILD PAIN / TEMP; Start 07/09/19 at 03:30; Stop 07/09/19 at 03:36; Status DC Acetaminophen (Tylenol) 650 mg PRN Q6HRS PRN PEG MILD PAIN / TEMP Last administered on 07/14/19at 07:35; Start 07/09/19 at 03:36 Sodium Chloride 1,000 ml @ 1,000 mls/hr Q1H PRN IV hypotension; Start 07/09/19 at 07:50; Stop 07/09/19 at 13:49; Status DC Albumin Human 200 ml @ 200 mls/hr 1X PRN PRN IV Hypotension; Start 07/09/19 at 08:00; Stop 07/09/19 at 13:59; Status DC Sodium Chloride (Normal Saline Flush) 10 ml 1X PRN PRN IV AP catheter pack; Start 07/09/19 at 08:00; Stop 07/10/19 at 07:59; Status DC Sodium Chloride (Normal Saline Flush) 10 ml 1X PRN PRN IV SPACE AND MISSILE [employer]PERATIONS SPACELIFT catheter pack; Start 07/09/19 at 08:00; Stop 07/10/19 at 07:59; Status DC Sodium Chloride 1,000 ml @ 400 mls/hr Q2H30M PRN IV PATENCY; Start 07/09/19 at 07:50; Stop 07/09/19 at 19:49; Status DC Info (PHARMACY MONITORING -- do not chart) 1 each PRN DAILY PRN MC SEE COMMENTS; Start 07/09/19 at 08:00; Status UNV Info (PHARMACY MONITORING -- do not chart) 1 each PRN DAILY PRN MC SEE COMMENTS; Start 07/09/19 at 08:00; Stop 07/11/19 at 08:25; Status DC Sodium Chloride 90 meq/Potassium Chloride 15 meq/ Potassium Phosphate 10 mmol/ Magnesium Sulfate 10 meq/Calcium Gluconate 20 meq/ Multivitamins 10 ml/Chromium/ Copper/Manganese/ Seleni/Zn 0.5 ml/ Total Parenteral Nutrition/Amino Acids/Dextrose/ Fat Emulsion Intravenous 1,512 ml @ 63 mls/hr TPN CONT IV Last administered on 07/09/19at 20:57; Start 07/09/19 at 22:00; Stop 07/10/19 at 21:59; Status DC Sodium Chloride 90 meq/Potassium Chloride 15 meq/ Potassium Phosphate 15 mmol/ Magnesium Sulfate 10 meq/Calcium Gluconate 20 meq/ Multivitamins 10 ml/Chromium/ Copper/Manganese/ Seleni/Zn 0.5 ml/ Total Parenteral Nutrition/Amino Acids/Dextrose/ Fat Emulsion Intravenous 1,512 ml @ 63 mls/hr TPN CONT IV ; Start 07/10/19 at 22:00; Stop 07/10/19 at 14:16; Status DC Sodium Chloride 90 meq/Potassium Chloride 15 meq/ Potassium Phosphate 15 mmol/ Magnesium Sulfate 10 meq/Calcium Gluconate 20 meq/ Multivitamins 10 ml/Chromium/ Copper/Manganese/ Seleni/Zn 0.5 ml/ Total Parenteral Nutrition/Amino Acids/Dextrose/ Fat Emulsion Intravenous 1,200 ml @ 50 mls/hr TPN CONT IV ; Start 07/10/19 at 22:00; Stop 07/10/19 at 14:17; Status DC Sodium Chloride 90 meq/Potassium Chloride 15 meq/ Potassium Phosphate 10 mmol/ Magnesium Sulfate 10 meq/Calcium Gluconate 20 meq/ Multivitamins 10 ml/Chromium/ Copper/Manganese/ Seleni/Zn 0.5 ml/ Total Parenteral Nutrition/Amino Acids/Dextrose/ Fat Emulsion Intravenous 1,200 ml @ 50 mls/hr TPN CONT IV Last administered on 07/10/19at 23:29; Start 07/10/19 at 22:00; Stop 07/11/19 at 21:59; Status DC Sodium Chloride 1,000 ml @ 1,000 mls/hr Q1H PRN IV hypotension; Start 07/11/19 at 07:28; Stop 07/11/19 at 13:27; Status DC Albumin Human 200 ml @ 200 mls/hr 1X ONCE IV Last administered on 07/11/19at 08:51; Start 07/11/19 at 07:30; Stop 07/11/19 at 08:29; Status DC Diphenhydramine HCl (Benadryl) 25 mg 1X PRN PRN IV ITCHING; Start 07/11/19 at 07:30; Stop 07/12/19 at 07:29; Status DC Diphenhydramine HCl (Benadryl) 25 mg 1X PRN PRN IV ITCHING; Start 07/11/19 at 07:30; Stop 07/12/19 at 07:29; Status DC Sodium Chloride 1,000 ml @ 400 mls/hr Q2H30M PRN IV PATENCY; Start 07/11/19 at 07:28; Stop 07/11/19 at 19:27; Status DC Info (PHARMACY MONITORING -- do not chart) 1 each PRN DAILY PRN MC SEE COMMENTS; Start 07/11/19 at 07:30; Stop 07/22/19 at 13:01; Status DC Metronidazole 100 ml @ 100 mls/hr Q6HRS IV Last administered on 07/23/19at 15:01; Start 07/11/19 at 08:30 Micafungin Sodium 100 mg/Dextrose 100 ml @ 100 mls/hr Q24H IV Last administered on 07/23/19at 08:55; Start 07/11/19 at 09:00 Propofol 0 ml @ As Directed STK-MED ONCE IV ; Start 07/11/19 at 07:53; Stop 07/11/19 at 07:53; Status DC Etomidate (Amidate) 20 mg STK-MED ONCE IV ; Start 07/11/19 at 07:53; Stop at 07:54; Status DC Midazolam HCl (Versed) 5 mg STK-MED ONCE .ROUTE ; Start 07/11/19 at 07:57; Stop 07/11/19 at 07:57; Status DC Fentanyl Citrate 30 ml @ 0 mls/hr CONT PRN IV SEE PROTOCOL Last administered on 07/23/19at 13:15; Start 07/11/19 at 08:15 Artificial Tears (Artificial Tears) 1 drop PRN Q1HR PRN OU DRY EYE; Start 07/11/19 at 08:15 Midazolam HCl 50 mg/Sodium Chloride 50 ml @ 0 mls/hr CONT PRN IV SEE PROTOCOL Last administered on 07/14/19at 22:39; Start 07/11/19 at 08:15; Stop 07/16/19 at 15:59; Status DC Etomidate (Amidate) 8 mg 1X ONCE IV Last administered on 07/11/19at 08:33; Start 07/11/19 at 08:30; Stop 07/11/19 at 08:31; Status DC Succinylcholine Chloride (Anectine) 120 mg 1X ONCE IV Last administered on 07/11/19at 08:34; Start 07/11/19 at 08:30; Stop 07/11/19 at 08:31; Status DC Midazolam HCl (Versed) 5 mg 1X ONCE IV ; Start 07/11/19 at 08:30; Stop 07/11/19 at 08:31; Status DC Potassium Chloride 15 meq/ Bicarbonate Dialysis Soln w/ out KCl 5,007.5 ml @ 1,000 mls/ hr Q5H1M IV Last administered on 07/12/19at 11:11; Start 07/11/19 at 12:00; Stop 07/12/19 at 11:15; Status DC Potassium Chloride 15 meq/ Bicarbonate Dialysis Soln w/ out KCl 5,007.5 ml @ 1,000 mls/ hr Q5H1M IV Last administered on 07/12/19at 11:12; Start 07/11/19 at 12:00; Stop 07/12/19 at 11:17; Status DC Potassium Chloride 15 meq/ Bicarbonate Dialysis Soln w/ out KCl 5,007.5 ml @ 1,000 mls/ hr Q5H1M IV Last administered on 07/12/19at 11:11; Start 07/11/19 at 12:00; Stop 07/12/19 at 11:19; Status DC Sodium Chloride 90 meq/Potassium Chloride 15 meq/ Potassium Phosphate 10 mmol/ Magnesium Sulfate 10 meq/Calcium Gluconate 20 meq/ Multivitamins 10 ml/Chromium/ Copper/Manganese/ Seleni/Zn 0.5 ml/ Total Parenteral Nutrition/Amino Acids/Dextrose/ Fat Emulsion Intravenous 1,400 ml @ 58.333 mls/ hr TPN CONT IV Last administered on 07/11/19at 21:42; Start 07/11/19 at 22:00; Stop 07/12/19 at 21:59; Status DC Heparin Sodium (Porcine) (Heparin Sodium) 5,000 unit Q8HRS SQ Last administered on 07/16/19at 05:55; Start 07/11/19 at 15:00; Stop 07/16/19 at 13:28; Status DC Meropenem 500 mg/ Sodium Chloride 50 ml @ 100 mls/hr Q6HRS IV Last administered on 07/13/19at 06:00; Start 07/12/19 at 09:00; Stop 07/13/19 at 07:29; Status DC Potassium Phosphate 20 mmol/ Sodium Chloride 106.6667 ml @ 51.667 m... 1X ONCE IV Last administered on 07/12/19at 11:22; Start 07/12/19 at 10:15; Stop 07/12/19 at 12:18; Status DC Acetaminophen (Tylenol Supp) 650 mg PRN Q6HRS PRN PA MILD PAIN / TEMP Last administered on 07/12/19at 10:37; Start 07/12/19 at 10:30 Potassium Chloride/Water 100 ml @ 100 mls/hr Q1H IV Last administered on 07/12/19at 12:12; Start 07/12/19 at 11:00; Stop 07/12/19 at 12:59; Status DC Potassium Chloride 20 meq/ Bicarbonate Dialysis Soln w/ out KCl 5,010 ml @ 1,000 mls/hr Q5H1M IV Last administered on 07/13/19at 08:48; Start 07/12/19 at 12:00; Stop 07/13/19 at 13:03; Status DC Potassium Chloride 20 meq/ Bicarbonate Dialysis Soln w/ out KCl 5,010 ml @ 1,000 mls/hr Q5H1M IV Last administered on 07/17/19at 14:52; Start 07/12/19 at 11:30; Stop 07/17/19 at 19:59; Status DC Potassium Chloride 20 meq/ Bicarbonate Dialysis Soln w/ out KCl 5,010 ml @ 1,000 mls/hr Q5H1M IV Last administered on 07/17/19at 14:53; Start 07/12/19 at 11:30; Stop 07/17/19 at 19:59; Status DC Sodium Chloride 90 meq/Potassium Chloride 15 meq/ Potassium Phosphate 15 mmol/ Magnesium Sulfate 10 meq/Calcium Gluconate 15 meq/ Multivitamins 10 ml/Chromium/ Copper/Manganese/ Seleni/Zn 0.5 ml/ Total Parenteral Nutrition/Amino Acids/Dextrose/ Fat Emulsion Intravenous 1,400 ml @ 58.333 mls/ hr TPN CONT IV Last administered on 07/12/19at 22:17; Start 07/12/19 at 22:00; Stop 07/13/19 at 21:59; Status DC Cefepime HCl (Maxipime) 2 gm Q12HR IVP Last administered on 07/23/19at 08:56; Start 07/13/19 at 09:00 Daptomycin 500 mg/ Sodium Chloride 50 ml @ 100 mls/hr Q48H IV Last administered on 07/23/19at 15:01; Start 07/13/19 at 08:30 Lidocaine HCl (Buffered Lidocaine 1%) 3 ml 1X ONCE INJ Last administered on 07/13/19at 10:27; Start 07/13/19 at 10:30; Stop 07/13/19 at 10:31; Status DC Potassium Phosphate 20 mmol/ Sodium Chloride 106.6667 ml @ 51.667 m... 1X ONCE IV Last administered on 07/13/19at 12:51; Start 07/13/19 at 13:00; Stop 07/13/19 at 15:03; Status DC Sodium Chloride 90 meq/Potassium Chloride 15 meq/ Potassium Phosphate 18 mmol/ Magnesium Sulfate 8 meq/Calcium Gluconate 15 meq/ Multivitamins 10 ml/Chromium/ Copper/Manganese/ Seleni/Zn 0.5 ml/ Total Parenteral Nutrition/Amino Acids/Dextrose/ Fat Emulsion Intravenous 1,400 ml @ 58.333 mls/ hr TPN CONT IV Last administered on 07/13/19at 22:16; Start 07/13/19 at 22:00; Stop 07/14/19 at 21:59; Status DC Potassium Chloride 20 meq/ Bicarbonate Dialysis Soln w/ out KCl 5,010 ml @ 1,000 mls/hr Q5H1M IV Last administered on 07/17/19at 14:54; Start 07/13/19 at 16:00; Stop 07/17/19 at 19:59; Status DC Multi-Ingred Cream/Lotion/Oil/ Oint (Artificial Tears Eye Ointment) 1 ramu PRN Q1HR PRN OU DRY EYE Last administered on 07/22/19at 11:05; Start 07/13/19 at 17:30 Sodium Chloride 90 meq/Potassium Chloride 15 meq/ Potassium Phosphate 18 mmol/ Magnesium Sulfate 8 meq/Calcium Gluconate 15 meq/ Multivitamins 10 ml/Chromium/ Copper/Manganese/ Seleni/Zn 0.5 ml/ Total Parenteral Nutrition/Amino Acids/Dextrose/ Fat Emulsion Intravenous 1,400 ml @ 58.333 mls/ hr TPN CONT IV Last administered on 07/14/19at 22:00; Start 07/14/19 at 22:00; Stop 07/15/19 at 21:59; Status DC Albumin Human 500 ml @ 125 mls/hr 1X ONCE IV ; Start 07/14/19 at 14:15; Stop 07/14/19 at 18:14; Status DC Sodium Chloride 90 meq/Potassium Chloride 15 meq/ Potassium Phosphate 18 mmol/ Magnesium Sulfate 8 meq/Calcium Gluconate 15 meq/ Multivitamins 10 ml/Chromium/ Copper/Manganese/ Seleni/Zn 0.5 ml/ Insulin Human Regular 10 unit/ Total Parenteral Nutrition/Amino Acids/Dextrose/ Fat Emulsion Intravenous 1,400 ml @ 58.333 mls/ hr TPN CONT IV Last administered on 07/15/19at 21:43; Start 07/15/19 at 22:00; Stop 07/16/19 at 21:59; Status DC Lidocaine HCl (Buffered Lidocaine 1%) 3 ml STK-MED ONCE .ROUTE ; Start 07/13/19 at 10:00; Stop 07/15/19 at 13:57; Status DC Midazolam HCl 100 mg/Sodium Chloride 100 ml @ 7 mls/hr CONT PRN IV SEE PROTOCOL Last administered on 07/23/19at 06:07; Start 07/16/19 at 16:00 Sodium Chloride 90 meq/Potassium Chloride 15 meq/ Potassium Phosphate 18 mmol/ Magnesium Sulfate 8 meq/Calcium Gluconate 15 meq/ Multivitamins 10 ml/Chromium/ Copper/Manganese/ Seleni/Zn 0.5 ml/ Insulin Human Regular 15 unit/ Total Parenteral Nutrition/Amino Acids/Dextrose/ Fat Emulsion Intravenous 1,400 ml @ 58.333 mls/ hr TPN CONT IV Last administered on 07/16/19at 20:34; Start 07/16/19 at 22:00; Stop 07/17/19 at 21:59; Status DC Info (Icu Electrolyte Protocol) 1 ea CONT PRN PRN MC PER PROTOCOL; Start 07/17/19 at 13:15 Sodium Chloride 90 meq/Potassium Chloride 15 meq/ Potassium Phosphate 18 mmol/ Magnesium Sulfate 8 meq/Calcium Gluconate 15 meq/ Multivitamins 10 ml/Chromium/ Copper/Manganese/ Seleni/Zn 0.5 ml/ Insulin Human Regular 15 unit/ Total Pare nteral Nutrition/Amino Acids/Dextrose/ Fat Emulsion Intravenous 1,400 ml @ 58.333 mls/ hr TPN CONT IV Last administered on 07/17/19at 22:05; Start 07/17/19 at 22:00; Stop 07/18/19 at 21:59; Status DC Potassium Chloride 15 meq/ Bicarbonate Dialysis Soln w/ out KCl 5,007.5 ml @ 1,000 mls/ hr Q5H1M IV Last administered on 07/20/19at 18:14; Start 07/17/19 at 20:00; Stop 07/21/19 at 13:08; Status DC Potassium Chloride 15 meq/ Bicarbonate Dialysis Soln w/ out KCl 5,007.5 ml @ 1,000 mls/ hr Q5H1M IV Last administered on 07/20/19at 18:14; Start 07/17/19 at 20:00; Stop 07/21/19 at 13:08; Status DC Potassium Chloride 15 meq/ Bicarbonate Dialysis Soln w/ out KCl 5,007.5 ml @ 1,000 mls/ hr Q5H1M IV Last administered on 07/20/19at 18:14; Start 07/17/19 at 20:00; Stop 07/21/19 at 13:08; Status DC Iohexol (Omnipaque 240 Mg/ml) 30 ml 1X ONCE PO Last administered on 07/18/19at 11:30; Start 07/18/19 at 11:30; Stop 07/18/19 at 11:33; Status DC Info (CONTRAST GIVEN -- Rx MONITORING) 1 each PRN DAILY PRN MC SEE COMMENTS; S tart 07/18/19 at 11:45; Stop 07/20/19 at 11:44; Status DC Sodium Chloride 90 meq/Potassium Chloride 15 meq/ Potassium Phosphate 18 mmol/ Magnesium Sulfate 8 meq/Calcium Gluconate 15 meq/ Multivitamins 10 ml/Chromium/ Copper/Manganese/ Seleni/Zn 0.5 ml/ Insulin Human Regular 15 unit/ Total Parenteral Nutrition/Amino Acids/Dextrose/ Fat Emulsion Intravenous 1,400 ml @ 58.333 mls/ hr TPN CONT IV Last administered on 07/18/19at 21:47; Start 07/18/19 at 22:00; Stop 07/19/19 at 21:59; Status DC Sodium Chloride 90 meq/Potassium Chloride 15 meq/ Potassium Phosphate 18 mmol/ Magnesium Sulfate 8 meq/Calcium Gluconate 15 meq/ Multivitamins 10 ml/Chromium/ Copper/Manganese/ Seleni/Zn 0.5 ml/ Insulin Human Regular 20 unit/ Total Parenteral Nutrition/Amino Acids/Dextrose/ Fat Emulsion Intravenous 1,400 ml @ 58.333 mls/ hr TPN CONT IV Last administered on 07/19/19at 21:36; Start 07/19/19 at 22:00; Stop 07/20/19 at 21:59; Status DC Alteplase, Recombinant (Cathflo For Central Catheter Clearance) 1 mg 1X ONCE INT CAT Last administered on 07/19/19at 20:03; Start 07/19/19 at 19:30; Stop 07/19/19 at 19:46; Status DC Alteplase, Recombinant (Cathflo For Central Catheter Clearance) 1 mg 1X ONCE INT CAT Last administered on 07/19/19at 22:05; Start 07/19/19 at 22:00; Stop 07/19/19 at 22:01; Status DC Sodium Chloride 90 meq/Potassium Chloride 15 meq/ Potassium Phosphate 18 mmol/ Magnesium Sulfate 8 meq/Calcium Gluconate 15 meq/ Multivitamins 10 ml/Chromium/ Copper/Manganese/ Seleni/Zn 0.5 ml/ Insulin Human Regular 20 unit/ Total Parenteral Nutrition/Amino Acids/Dextrose/ Fat Emulsion Intravenous 1,400 ml @ 58.333 mls/ hr TPN CONT IV Last administered on 07/20/19at 21:30; Start 07/20/19 at 22:00; Stop 07/21/19 at 21:59; Status DC Dexmedetomidine HCl 400 mcg/ Sodium Chloride 100 ml @ 0 mls/hr CONT PRN IV ANXIETY / AGITATION Last administered on 07/23/19at 15:25; Start 07/21/19 at 08:15 Sodium Chloride 500 ml @ 500 mls/hr 1X PRN PRN IV ELEVATED BP, SEE COMMENTS; Start 07/21/19 at 08:15 Atropine Sulfate (ATROPINE 0.5mg SYRINGE) 0.5 mg PRN Q5MIN PRN IV SEE COMMENTS; Start 07/21/19 at 08:15 Furosemide (Lasix) 20 mg 1X ONCE IVP Last administered on 07/21/19at 08:19; Start 07/21/19 at 08:15; Stop 07/21/19 at 08:16; Status DC Lidocaine HCl (Buffered Lidocaine 1%) 3 ml STK-MED ONCE .ROUTE ; Start 07/21/19 at 08:39; Stop 07/21/19 at 08:39; Status DC Lidocaine HCl (Buffered Lidocaine 1%) 6 ml 1X ONCE INJ Last administered on 07/21/19at 09:05; Start 07/21/19 at 09:00; Stop 07/21/19 at 09:06; Status DC Sodium Chloride 90 meq/Potassium Chloride 15 meq/ Potassium Phosphate 18 mmol/ Magnesium Sulfate 8 meq/Calcium Gluconate 15 meq/ Multivitamins 10 ml/Chromium/ Copper/Manganese/ Seleni/Zn 0.5 ml/ Insulin Human Regular 20 unit/ Total Parenteral Nutrition/Amino Acids/Dextrose/ Fat Emulsion Intravenous 1,400 ml @ 58.333 mls/ hr TPN CONT IV Last administered on 07/21/19at 22:45; Start 07/21/19 at 22:00; Stop 07/22/19 at 21:59; Status DC Sodium Chloride 1,000 ml @ 1,000 mls/hr Q1H PRN IV hypotension; Start 07/22/19 at 07:30; Stop 07/22/19 at 13:29; Status DC Albumin Human 200 ml @ 200 mls/hr 1X PRN PRN IV Hypotension Last administered on 07/22/19at 09:36; Start 07/22/19 at 07:30; Stop 07/22/19 at 13:29; Status DC Sodium Chloride (Normal Saline Flush) 10 ml 1X PRN PRN IV AP catheter pack; Start 07/22/19 at 07:30; Stop 07/22/19 at 21:29; Status DC Sodium Chloride (Normal Saline Flush) 10 ml 1X PRN PRN IV SPACE AND MISSILE [employer]PERATIONS SPACELIFT catheter pack; Start 07/22/19 at 07:30; Stop 07/23/19 at 07:29; Status DC Sodium Chloride 1,000 ml @ 400 mls/hr Q2H30M PRN IV PATENCY; Start 07/22/19 at 07:30; Stop 07/22/19 at 19:29; Status DC Info (PHARMACY MONITORING -- do not chart) 1 each PRN DAILY PRN MC SEE COMMENTS; Start 07/22/19 at 07:30; Stop 07/22/19 at 13:02; Status DC Info (PHARMACY MONITORING -- do not chart) 1 each PRN DAILY PRN MC SEE COMMENTS; Start 07/22/19 at 07:30 Sodium Chloride 90 meq/Potassium Chloride 15 meq/ Potassium Phosphate 10 mmol/ Magnesium Sulfate 8 meq/Calcium Gluconate 15 meq/ Multivitamins 10 ml/Chromium/ Copper/Manganese/ Seleni/Zn 0.5 ml/ Insulin Human Regular 25 unit/ Total Pa renteral Nutrition/Amino Acids/Dextrose/ Fat Emulsion Intravenous 1,400 ml @ 58.333 mls/ hr TPN CONT IV Last administered on 07/22/19at 22:19; Start 07/22/19 at 22:00; Stop 07/23/19 at 21:59 Heparin Sodium (Porcine) (Heparin Sodium) 5,000 unit Q12HR SQ Last administered on 07/23/19at 08:57; Start 07/22/19 at 21:00 Ondansetron HCl (Zofran) 4 mg PRN Q6HRS PRN IV NAUSEA/VOMITING; Start 07/25/19 at 07:00; Stop 07/26/19 at 06:59 Fentanyl Citrate (Fentanyl 2ml Vial) 25 mcg PRN Q5MIN PRN IV MILD PAIN 1-3; Start 07/25/19 at 07:00; Stop 07/26/19 at 06:59 Fentanyl Citrate (Fentanyl 2ml Vial) 50 mcg PRN Q5MIN PRN IV MODERATE TO SEVERE PAIN; Start 07/25/19 at 07:00; Stop 07/26/19 at 06:59 Ringer's Solution 1,000 ml @ 30 mls/hr Q24H IV ; Start 07/25/19 at 07:00; Stop 07/25/19 at 18:59 Lidocaine HCl (Xylocaine-Mpf 1% 2ml Vial) 2 ml PRN 1X PRN ID PRIOR TO IV START; Start 07/25/19 at 07:00; Stop 07/26/19 at 06:59 Prochlorperazine Edisylate (Compazine) 5 mg PACU PRN PRN IV NAUSEA, MRX1; Start 07/25/19 at 07:00; Stop 07/26/19 at 06:59 Sodium Chloride 1,000 ml @ 1,000 mls/hr Q1H PRN IV hypotension; Start 07/23/19 at 09:10; Stop 07/23/19 at 15:09; Status DC Albumin Human 200 ml @ 200 mls/hr 1X PRN PRN IV Hypotension Last administered on 07/23/19at 10:10; Start 07/23/19 at 09:15; Stop 07/23/19 at 15:14; Status DC Sodium Chloride 1,000 ml @ 400 mls/hr Q2H30M PRN IV PATENCY; Start 07/23/19 at 09:10; Stop 07/23/19 at 21:09 Info (PHARMACY MONITORING -- do not chart) 1 each PRN DAILY PRN MC SEE COMMENTS; Start 07/23/19 at 09:15 Info (PHARMACY MONITORING -- do not chart) 1 each PRN DAILY PRN MC SEE COMMENTS; Start 07/23/19 at 09:15 Sodium Chloride 90 meq/Potassium Chloride 15 meq/ Potassium Phosphate 10 mmol/ Magnesium Sulfate 8 meq/Calcium Gluconate 15 meq/ Multivitamins 10 ml/Chromium/ Copper/Manganese/ Seleni/Zn 0.5 ml/ Insulin Human Regular 25 unit/ Total Parenteral Nutrition/Amino Acids/Dextrose/ Fat Emulsion Intravenous 1,400 ml @ 58.333 mls/ hr TPN CONT IV ; Start 07/23/19 at 22:00; Stop 07/24/19 at 21:59 Active Scripts Active Reported Bisoprolol Fumarate 5 Mg Tablet 10 Mg PO DAILY Vitals/I & O Vital Sign - Last 24 Hours 07/22/19 07/22/19 07/22/19 07/22/19 20:00 20:00 21:00 21:30 Temp 99.7 99.7 Pulse 85 83 Resp 25 25 B/P (MAP) 84/42 (56) 94/51 (65) Pulse Ox 98 100 98 O2 Delivery Ventilator Mechanical Ventilator Ventilator Ventilator 07/22/19 07/22/19 07/22/19 07/22/19 22:00 22:22 22:58 23:00 Pulse 86 87 Resp 25 25 24 25 B/P (MAP) 110/71 (84) 104/61 (75) Pulse Ox 100 97 98 100 O2 Delivery Ventilator Ventilator Ventilator Ventilator 07/23/19 07/23/19 07/23/19 07/23/19 00:00 00:00 00:50 01:00 Temp 101.5 101.5 Pulse 88 88 Resp 25 B/P (MAP) 96/58 (71) 87/53 (64) Pulse Ox 98 97 99 O2 Delivery Ventilator Mechanical Ventilator Ventilator Ventilator 07/23/19 07/23/19 07/23/19 07/23/19 02:00 03:00 04:00 04:00 Temp 101.2 101.2 Pulse 89 91 90 Resp 25 B/P (MAP) 96/57 (70) 112/67 (82) 92/61 (71) Pulse Ox 97 97 97 O2 Delivery Ventilator Ventilator Ventilator Mechanical Ventilator 07/23/19 07/23/19 07/23/19 07/23/19 04:50 05:00 05:35 06:00 Temp 98.5 98.5 Pulse 90 86 Resp 25 B/P (MAP) 110/67 (81) 109/60 (76) Pulse Ox 97 96 96 97 O2 Delivery Ventilator Ventilator Ventilator Ventilator 07/23/19 07/23/19 07/23/19 07/23/19 06:31 07:00 08:00 08:00 Temp 98.4 98.4 Pulse 84 83 Resp 24 B/P (MAP) 116/58 (77) 112/66 (81) Pulse Ox 97 98 98 O2 Delivery Ventilator Ventilator Mechanical Ventilator Ventilator 07/23/19 07/23/19 07/23/19 07/23/19 09:00 10:14 12:21 13:15 Pulse 86 Resp 25 B/P (MAP) 111/74 (86) Pulse Ox 98 98 99 99 O2 Delivery Ventilator Ventilator Ventilator Ventilator 07/23/19 07/23/19 07/23/19 07/23/19 14:59 15:00 16:00 16:00 Temp 97.8 97.2 97.8 97.2 Pulse 75 75 Resp 24 24 B/P (MAP) 91/47 (62) 111/73 (86) Pulse Ox 99 99 99 O2 Delivery Ventilator Ventilator Mechanical Ventilator Ventilator 07/23/19 07/23/19 17:00 18:27 Temp 97.8 97.8 Pulse 76 76 Resp 17 18 B/P (MAP) 93/51 (65) 80/53 (62) Pulse Ox 100 100 O2 Delivery Ventilator Ventilator Intake and Output 07/22/19 07/22/19 07/23/19 15:00 23:00 07:00 Intake Total 300 ml 1071.2 ml 1375.0 ml Output Total 155 ml 390 ml 180 ml Balance 145 ml 681.2 ml 1195.0 ml Hemodynamically unstable?: No Is patient in severe pain?: No Is NPO status required?: Yes NIELS MCGILL MD Jul 23, 2019 19:30
[2019-07-23] MEDS ORDERED: [UNRECOGNIZED DRUG - OTHER] IV SCH ×11 (22:00)
[2019-07-23] MEDS ORDERED: TOTAL PARENTERAL NUTRITION IV SCH ×11 (22:00)
[2019-07-23] MEDS ORDERED: AMINO ACID IV SCH ×11 (22:00)
[2019-07-23] MEDS ORDERED: DEXTROSE 70% IV SCH ×11 (22:00)
[2019-07-24] VITALS (17 sets, daily range): BP systolic 85–155; BP diastolic 48–97
[2019-07-24] MEDS: DEXMEDETOMIDINE 400 MCG in IV NORMAL SALINE 100ML 96 ML IV PRN ×8 (00:06→23:56)
[2019-07-24] MEDS: MIDAZOLAM HCL 100 MG in IV NORMAL SALINE 100ML 100 ML IV PRN ×2 (05:57→17:13)
[2019-07-24] MEDS: INSULIN LISPRO 300 UNITS/3 ML VIAL. SQ SCH ×4 (06:19→23:59)
[2019-07-24 06:22] LABS: BASO % 1 % (0-3); EOS # 0.6 x10^3/uL (0.0-0.7); EOS % 7 % (0-3); HEMATOCRIT 23.8 % (36.0-47.0); HEMOGLOBIN 7.8 g/dL (12.0-15.5); LYMPH # 0.9 x10^3/uL (1.0-4.8); LYMPH % 10 % (24-48); MEAN CORPUSCULAR HEMOGLOBIN 32 pg (25-35); MEAN CORPUSCULAR HGB CONC 33 g/dL (31-37); MEAN CORPUSCULAR VOLUME 98 fL (79-100); MONO # 0.7 x10^3/uL (0.0-1.1); MONO % 7 % (0-9); NEUT # 7.3 x10^3/uL (1.8-7.7); NEUT % 76 % (31-73); PLATELET COUNT 198 x10^3/uL (140-400); RED BLOOD COUNT 2.42 x10^6/uL (3.50-5.40); RED CELL DISTRIBUTION WIDTH 19.5 % (11.5-14.5); WHITE BLOOD COUNT 9.6 x10^3/uL (4.0-11.0)
[2019-07-24] MEDS: PANTOPRAZOLE IV PUSH 40 MG VIAL. IVP SCH (07:32)
[2019-07-24] MEDS: MICAFUNGIN 100 MG in IV DEXTROSE 5% 100ML 100 ML IV SCH (08:51)
[2019-07-24] MEDS: CEFEPIME HCL IV Push 2 GM VIAL. IVP SCH ×2 (08:52→21:18)
[2019-07-24] MEDS: HEPARIN for SUB-Q USE 5,000 UNIT/ML VIAL. SQ SCH ×2 (09:01→21:21)
--- NOTE | 2019-07-24 09:12 | PDOC ---
SUBJECTIVE ROS Patient remains sedated intubated on the ventilator currently. She is scheduled for dialysis later today. OBJECTIVE Vital Signs Vital Signs Date Time Temp Pulse Resp B/P (MAP) Pulse Ox O2 Delivery O2 Flow Rate FiO2 07/24/19 08:00 99 Ventilator 07/24/19 06:00 79 18 102/54 (70) 07/24/19 05:00 97.8 97.8 I & 0 Intake and Output 07/24/19 07:00 Intake Total 6471 ml Output Total 670 ml Balance 5801 ml IV Total 6471 ml Output Urine Total 470 ml Gastric Drainage Total 200 ml PHYSICAL EXAM Physical Exam Chest: CTA Joseph Heart: S1 S2 Abdomen - Soft NT, ? min Distended Extremities - +2 Edema ARF: Dialysis as below F 180 NR 4.0 Hrs 4 K 2.5 Ca 140 Na 35 HC03 Qb 350 + Qd 500+ Heparin 0 Units Uf 3-5 Kgs or to dry weight as tolerated May give 25-50 gms of 25% Albumin if needed to maintain Hemodynamic stability Treatment plan reviewed and discussed with coloring checker COMMENT/RELEVANT DATA Meds Current Medications Medications (Trade) Dose Ordered Sig/Yvon Start Time Stop Time Status Last Admin Dose Admin Acetaminophen (Tylenol Supp) 650 mg PRN Q6HRS PRN 07/12/19 10:30 07/12/19 10:37 650 MG Acetaminophen (Tylenol) 650 mg PRN Q6HRS PRN 07/09/19 03:36 07/14/19 07:35 650 MG Albumin Human 200 ml @ 200 mls/hr 1X PRN PRN 07/23/19 09:15 07/23/19 15:14 DC 07/23/19 10:10 200 MLS/HR Albuterol Sulfate (Ventolin Neb Soln) 2.5 mg 1X ONCE 07/05/19 22:30 07/05/19 22:31 DC 07/06/19 00:56 2.5 MG Alteplase, Recombinant (Cathflo For Central Catheter Clearance) 1 mg 1X ONCE 07/19/19 22:00 07/19/19 22:01 DC 07/19/19 22:05 1 MG Artificial Tears (Artificial Tears) 1 drop PRN Q1HR PRN 07/11/19 08:15 Atenolol (Tenormin) 100 mg DAILY 07/05/19 09:00 07/04/19 20:08 DC Atropine Sulfate (ATROPINE 0.5mg SYRINGE) 0.5 mg PRN Q5MIN PRN 07/21/19 08:15 Benzocaine (Hurricaine One) 1 spray 1X ONCE 07/08/19 14:30 07/08/19 14:31 DC 07/08/19 16:38 1 SPRAY Calcium Carbonate/ Glycine (Tums) 500 mg PRN AFTMEALHC PRN 07/06/19 17:45 Calcium Chloride 1000 mg/Sodium Chloride 110 ml @ 220 mls/hr 1X ONCE 07/05/19 22:30 07/05/19 22:59 DC 07/05/19 22:11 220 MLS/HR Calcium Chloride 3000 mg/Sodium Chloride 1,030 ml @ 50 mls/hr [id number] 07/07/19 08:00 07/09/19 15:23 DC 07/09/19 02:17 50 MLS/HR Calcium Gluconate (Calcium Gluconate) 2,000 mg 1X ONCE 07/07/19 02:15 07/07/19 02:16 DC 07/07/19 02:19 2,000 MG Calcium Gluconate 1000 mg/Sodium Chloride 110 ml @ 220 mls/hr 1X ONCE 07/06/19 03:30 07/06/19 03:59 DC 07/06/19 03:21 220 MLS/HR Calcium Gluconate 2000 mg/Sodium Chloride 120 ml @ 220 mls/hr 1X ONCE 07/06/19 07:30 07/06/19 08:02 DC 07/06/19 09:05 220 MLS/HR Cefepime HCl (Maxipime) 2 gm Q12HR 07/13/19 09:00 07/24/19 08:52 2 GM Daptomycin 500 mg/ Sodium Chloride 50 ml @ 100 mls/hr Q48H 07/13/19 08:30 07/23/19 15:01 100 MLS/HR Dexmedetomidine HCl 400 mcg/ Sodium Chloride 100 ml @ 0 mls/hr CONT PRN 07/21/19 08:15 07/24/19 06:30 27.8 MLS/HR Dextrose (Dextrose 50%-Water Syringe) 12.5 gm PRN Q15MIN PRN 07/04/19 09:30 Digoxin (Lanoxin) 125 mcg 1X ONCE 07/07/19 18:00 3/19/20 18:01 DC 07/07/19 17:10 125 MCG Diphenhydramine HCl (Benadryl) 25 mg 1X PRN PRN 07/11/19 07:30 07/12/19 07:29 DC Etomidate (Amidate) 8 mg 1X ONCE 07/11/19 08:30 07/11/19 08:31 DC 07/11/19 08:33 8 MG Fentanyl Citrate (Fentanyl 2ml Vial) 50 mcg PRN Q5MIN PRN 07/25/19 07:00 07/26/19 06:59 Furosemide (Lasix) 20 mg 1X ONCE 07/21/19 08:15 07/21/19 08:16 DC 07/21/19 08:19 20 MG Heparin Sodium (Porcine) (Heparin Sodium) 5,000 unit Q12HR 07/22/19 21:00 07/24/19 09:01 5,000 UNIT Hydromorphone HCl (Dilaudid) 1 mg PRN Q3HRS PRN 07/05/19 12:00 07/19/19 00:25 DC 07/11/19 05:13 1 MG Info (CONTRAST GIVEN -- Rx MONITORING) 1 each PRN DAILY PRN 07/18/19 11:45 07/20/19 11:44 DC Info (Icu Electrolyte Protocol) 1 ea CONT PRN PRN 07/17/19 13:15 Info (PHARMACY MONITORING -- do not chart) 1 each PRN DAILY PRN 07/23/19 09:15 Info (Tpn Per Pharmacy) 1 each PRN DAILY PRN 07/06/19 12:30 UNV Insulin Human Lispro (HumaLOG) 0-9 UNITS Q6HRS 07/04/19 09:30 07/24/19 06:19 4 UNITS Insulin Human Regular (HumuLIN R VIAL) 5 unit 1X ONCE 07/05/19 22:30 07/05/19 22:31 DC 07/05/19 22:14 5 UNIT Iohexol (Omnipaque 240 Mg/ml) 30 ml 1X ONCE 07/18/19 11:30 07/18/19 11:33 DC 07/18/19 11:30 30 ML Iohexol (Omnipaque 300 Mg/ml) 60 ml 1X ONCE 07/05/19 17:00 07/05/19 17:01 DC 07/05/19 17:20 60 ML Iohexol (Omnipaque 350 Mg/ml) 90 ml 1X ONCE 07/04/19 03:30 07/04/19 03:31 DC 07/04/19 03:25 90 ML Ketorolac Tromethamine (Toradol 30mg Vial) 30 mg 1X ONCE 07/04/19 03:00 07/04/19 03:01 DC 07/04/19 02:54 30 MG Lidocaine HCl (Buffered Lidocaine 1%) 6 ml 1X ONCE 07/21/19 09:00 07/21/19 09:06 DC 07/21/19 09:05 6 ML Lidocaine HCl (Glydo (Lidocaine) Jelly) 1 ramu 1X ONCE 07/08/19 14:30 07/08/19 14:31 DC 07/08/19 16:38 1 RAMU Lidocaine HCl (Xylocaine-Mpf 1% 2ml Vial) 2 ml PRN 1X PRN 07/25/19 07:00 07/26/19 06:59 Linezolid/Dextrose 300 ml @ 300 mls/hr Q12HR 07/08/19 20:00 07/15/19 07:50 DC 07/14/19 21:04 300 MLS/HR Lorazepam (Ativan Inj) 1 mg PRN Q4HRS PRN 07/07/19 09:00 07/11/19 00:34 1 MG Magnesium Sulfate 100 ml @ 25 mls/hr 1X ONCE 07/07/19 13:00 07/07/19 16:59 DC 07/07/19 12:48 25 MLS/HR Meropenem 1 gm/ Sodium Chloride 100 ml @ 200 mls/hr Q8HRS 07/05/19 20:00 07/06/19 08:48 DC 07/06/19 05:45 200 MLS/HR Meropenem 500 mg/ Sodium Chloride 50 ml @ 100 mls/hr Q6HRS 07/12/19 09:00 07/13/19 07:29 DC 07/13/19 06:00 100 MLS/HR Metoprolol Tartrate (Lopressor Vial) 5 mg Q6HRS 07/05/19 10:15 07/16/19 08:48 DC 07/14/19 00:12 5 MG Metronidazole 100 ml @ 100 mls/hr Q6HRS 07/11/19 08:30 07/24/19 05:57 100 MLS/HR Micafungin Sodium 100 mg/Dextrose 100 ml @ 100 mls/hr Q24H 07/11/19 09:00 07/24/19 08:51 100 MLS/HR Midazolam HCl (Versed) 5 mg 1X ONCE 07/11/19 08:30 07/11/19 08:31 DC Midazolam HCl 100 mg/Sodium Chloride 100 ml @ 7 mls/hr CONT PRN 07/16/19 16:00 07/24/19 05:57 7 MLS/HR Midazolam HCl 50 mg/Sodium Chloride 50 ml @ 0 mls/hr CONT PRN 07/11/19 08:15 07/16/19 15:59 DC 07/14/19 22:39 7 MLS/HR Morphine Sulfate (Morphine Sulfate) 2 mg PRN Q2HR PRN 07/04/19 05:00 07/05/19 14:15 DC 07/05/19 12:26 2 MG Multi-Ingred Cream/Lotion/Oil/ Oint (Artificial Tears Eye Ointment) 1 ramu PRN Q1HR PRN 07/13/19 17:30 07/22/19 11:05 1 RAMU Norepinephrine Bitartrate 8 mg/ Dextrose 258 ml @ 17.299 mls/ hr CONT PRN 07/05/19 15:30 07/22/19 07:51 4.1 MLS/HR Ondansetron HCl (Zofran) 4 mg PRN Q6HRS PRN 07/25/19 07:00 07/26/19 06:59 Pantoprazole Sodium (PROTONIX VIAL for IV PUSH) 40 mg DAILYAC 07/04/19 11:30 07/24/19 07:32 40 MG Piperacillin Sod/ Tazobactam Sod 4.5 gm/Sodium Chloride 100 ml @ 200 mls/hr 1X ONCE 07/04/19 06:00 07/04/19 06:29 DC 07/04/19 05:44 200 MLS/HR Potassium Chloride 15 meq/ Bicarbonate Dialysis Soln w/ out KCl 5,007.5 ml @ 1,000 mls/ hr Q5H1M 07/17/19 20:00 07/21/19 13:08 DC 07/20/19 18:14 1,000 MLS/HR Potassium Chloride 20 meq/ Bicarbonate Dialysis Soln w/ out KCl 5,010 ml @ 1,000 mls/hr Q5H1M 07/13/19 16:00 07/17/19 19:59 DC 07/17/19 14:54 1,000 MLS/HR Potassium Chloride/Water 100 ml @ 100 mls/hr Q1H 07/12/19 11:00 07/12/19 12:59 DC 07/12/19 12:12 100 MLS/HR Potassium Phosphate 20 mmol/ Sodium Chloride 106.6667 ml @ 51.667 m... 1X ONCE 07/13/19 13:00 07/13/19 15:03 DC 07/13/19 12:51 51.667 MLS/HR Prochlorperazine Edisylate (Compazine) 5 mg PACU PRN PRN 07/25/19 07:00 07/26/19 06:59 Propofol 0 ml @ As Directed STK-MED ONCE 07/11/19 07:53 07/11/19 07:53 DC Ringer's Solution 1,000 ml @ 30 mls/hr Q24H 07/25/19 07:00 07/25/19 18:59 Sodium Bicarbonate 50 meq/Sodium Chloride 1,050 ml @ 75 mls/hr Q14H 07/06/19 07:30 07/11/19 10:28 DC 07/10/19 21:10 75 MLS/HR Sodium Chloride (Normal Saline Flush) 10 ml 1X PRN PRN 07/22/19 07:30 07/23/19 07:29 DC Sodium Chloride 90 meq/Calcium Gluconate 10 meq/ Multivitamins 10 ml/Chromium/ Copper/Manganese/ Seleni/Zn 0.5 ml/ Total Parenteral Nutrition/Amino Acids/Dextrose/ Fat Emulsion Intravenous 1,512 ml @ 63 mls/hr TPN CONT 07/06/19 22:00 07/07/19 21:59 DC 07/06/19 22:06 63 MLS/HR Sodium Chloride 90 meq/Calcium Gluconate 10 meq/ Multivitamins 10 ml/Chromium/ Copper/Manganese/ Seleni/Zn 1 ml/ Total Parenteral Nutrition/Amino Acids/Dextrose/ Fat Emulsion Intravenous 55.005 ml @ 2.292 mls/hr TPN CONT 07/06/19 22:00 07/06/19 12:33 DC Sodium Chloride 90 meq/Magnesium Sulfate 10 meq/ Calcium Gluconate 20 meq/ Multivitamins 10 ml/Chromium/ Copper/Manganese/ Seleni/Zn 0.5 ml/ Total Parenteral Nutrition/Amino Acids/Dextrose/ Fat Emulsion Intravenous 1,512 ml @ 63 mls/hr TPN CONT 07/07/19 22:00 07/08/19 21:59 DC 07/07/19 22:25 63 MLS/HR Sodium Chloride 90 meq/Potassium Chloride 15 meq/ Potassium Phosphate 10 mmol/ Magnesium Sulfate 8 meq/Calcium Gluconate 15 meq/ Multivitamins 10 ml/Chromium/ Copper/Manganese/ Seleni/Zn 0.5 ml/ Insulin Human Regular 25 unit/ Total Parenteral Nutrition/Amino Acids/Dextrose/ Fat Emulsion Intravenous 1,400 ml @ 58.333 mls/ hr TPN CONT 07/23/19 22:00 07/24/19 21:59 07/23/19 22:10 58.333 MLS/HR Sodium Chloride 90 meq/Potassium Chloride 15 meq/ Potassium Phosphate 10 mmol/ Magnesium Sulfate 10 meq/Calcium Gluconate 20 meq/ Multivitamins 10 ml/Chromium/ Copper/Manganese/ Seleni/Zn 0.5 ml/ Total Parenteral Nutrition/Amino Acids/Dextrose/ Fat Emulsion Intravenous 1,400 ml @ 58.333 mls/ hr TPN CONT 07/11/19 22:00 07/12/19 21:59 DC 07/11/19 21:42 58.333 MLS/HR Sodium Chloride 90 meq/Potassium Chloride 15 meq/ Potassium Phosphate 15 mmol/ Magnesium Sulfate 10 meq/Calcium Gluconate 15 meq/ Multivitamins 10 ml/Chromium/ Copper/Manganese/ Seleni/Zn 0.5 ml/ Total Parenteral Nutrition/Amino Acids/Dextrose/ Fat Emulsion Intravenous 1,400 ml @ 58.333 mls/ hr TPN CONT 07/12/19 22:00 07/13/19 21:59 DC 07/12/19 22:17 58.333 MLS/HR Sodium Chloride 90 meq/Potassium Chloride 15 meq/ Potassium Phosphate 15 mmol/ Magnesium Sulfate 10 meq/Calcium Gluconate 20 meq/ Multivitamins 10 ml/Chromium/ Copper/Manganese/ Seleni/Zn 0.5 ml/ Total Parenteral Nutrition/Amino Acids/Dextrose/ Fat Emulsion Intravenous 1,200 ml @ 50 mls/hr TPN CONT 07/10/19 22:00 07/10/19 14:17 DC Sodium Chloride 90 meq/Potassium Chloride 15 meq/ Potassium Phosphate 18 mmol/ Magnesium Sulfate 8 meq/Calcium Gluconate 15 meq/ Multivitamins 10 ml/Chromium/ Copper/Manganese/ Seleni/Zn 0.5 ml/ Insulin Human Regular 10 unit/ Total Parenteral Nutrition/Amino Acids/Dextrose/ Fat Emulsion Intravenous 1,400 ml @ 58.333 mls/ hr TPN CONT 07/15/19 22:00 07/16/19 21:59 DC 07/15/19 21:43 58.333 MLS/HR Sodium Chloride 90 meq/Potassium Chloride 15 meq/ Potassium Phosphate 18 mmol/ Magnesium Sulfate 8 meq/Calcium Gluconate 15 meq/ Multivitamins 10 ml/Chromium/ Copper/Manganese/ Seleni/Zn 0.5 ml/ Insulin Human Regular 15 unit/ Total Parenteral Nutrition/Amino Acids/Dextrose/ Fat Emulsion Intravenous 1,400 ml @ 58.333 mls/ hr TPN CONT 07/18/19 22:00 07/19/19 21:59 DC 07/18/19 21:47 58.333 MLS/HR Sodium Chloride 90 meq/Potassium Chloride 15 meq/ Potassium Phosphate 18 mmol/ Magnesium Sulfate 8 meq/Calcium Gluconate 15 meq/ Multivitamins 10 ml/Chromium/ Copper/Manganese/ Seleni/Zn 0.5 ml/ Insulin Human Regular 20 unit/ Total Parenteral Nutrition/Amino Acids/Dextrose/ Fat Emulsion Intravenous 1,400 ml @ 58.333 mls/ hr TPN CONT 07/21/19 22:00 07/22/19 21:59 DC 07/21/19 22:45 58.333 MLS/HR Sodium Chloride 90 meq/Potassium Chloride 15 meq/ Potassium Phosphate 18 mmol/ Magnesium Sulfate 8 meq/Calcium Gluconate 15 meq/ Multivitamins 10 ml/Chromium/ Copper/Manganese/ Seleni/Zn 0.5 ml/ Total Parenteral Nutrition/Amino Acids/Dextrose/ Fat Emulsion Intravenous 1,400 ml @ 58.333 mls/ hr TPN CONT 07/14/19 22:00 07/15/19 21:59 DC 07/14/19 22:00 58.333 MLS/HR Succinylcholine Chloride (Anectine) 120 mg 1X ONCE 07/11/19 08:30 07/11/19 08:31 DC 07/11/19 08:34 120 MG Lab Laboratory Tests Test 07/23/19 14:54 07/23/19 17:50 4/4/20 18:38 07/23/19 23:52 Urine Collection Type Unknown Urine Color Red Urine Clarity Cloudy Urine pH 5.0 (<5.0-8.0) Urine Specific [place] 1.025 (1.000-1.030) Urine Protein 100 mg/dL (NEG-TRACE) Urine Glucose (UA) Negative mg/dL (NEG) Urine Ketones (Stick) Trace mg/dL (NEG) Urine Blood Large (NEG) Urine Nitrite Positive (NEG) Urine Bilirubin Small (NEG) Urine Urobilinogen Dipstick 0.2 mg/dL (0.2 mg/dL) Urine Leukocyte Esterase Small (NEG) Urine RBC Rare /HPF (0-2) Urine WBC 1-4 /HPF (0-4) Urine Squamous Epithelial Cells Occ /LPF Urine Amorphous Sediment Present /HPF Urine Bacteria 0 /HPF (0-FEW) O2 Saturation 98 % (92-99) Arterial Blood pH 7.48 (7.35-7.45) Arterial Blood pCO2 at Patient Temp 30 mmHg (35-46) Arterial Blood pO2 at Patient Temp 122 mmHg (75-108) Arterial Blood HCO3 22 mmol/L (21-28) Arterial Blood Base Excess -1 mmol/L (-3-3) FiO2 50 Glucose (Fingerstick) 171 mg/dL (70-99) 173 mg/dL (70-99) Test 07/24/19 06:00 07/24/19 06:17 White Blood Count 9.6 x10^3/uL (4.0-11.0) Red Blood Count 2.42 x10^6/uL (3.50-5.40) Hemoglobin 7.8 g/dL (12.0-15.5) Hematocrit 23.8 % (36.0-47.0) Mean Corpuscular Volume 98 fL (79-100) Mean Corpuscular Hemoglobin 32 pg (25-35) Mean Corpuscular Hemoglobin Concent 33 g/dL (31-37) Red Cell Distribution Width 19.5 % (11.5-14.5) Platelet Count 198 x10^3/uL (140-400) Neutrophils (%) (Auto) 76 % (31-73) Lymphocytes (%) (Auto) 10 % (24-48) Monocytes (%) (Auto) 7 % (0-9) Eosinophils (%) (Auto) 7 % (0-3) Basophils (%) (Auto) 1 % (0-3) Neutrophils # (Auto) 7.3 x10^3/uL (1.8-7.7) Lymphocytes # (Auto) 0.9 x10^3/uL (1.0-4.8) Monocytes # (Auto) 0.7 x10^3/uL (0.0-1.1) Eosinophils # (Auto) 0.6 x10^3/uL (0.0-0.7) Basophils # (Auto) 0.0 x10^3/uL (0.0-0.2) Glucose (Fingerstick) 167 mg/dL (70-99) Results All relevant outside records, renal labs, imaging studies, telemetry/EKG's were reviewed. ALEJANDRA JONES MD Jul 24, 2019 09:12
[2019-07-24 09:21] LABS: BASE EXCESS ABG -2 mmol/L (-3-3); HCO3 ABG 22 mmol/L (21-28); PCO2 ABG 35 mmHg (35-46); PO2 ABG 104 mmHg (75-108); SAT O2 ABG 97 % (92-99)
[2019-07-24 09:30] LABS: FIO2 ABG 45
[2019-07-24 09:57] LABS: ALBUMIN 2.3 g/dL (3.4-5.0); ALBUMIN/GLOBULIN RATIO 0.9 (1.0-1.7); CALCIUM 8.3 mg/dL (8.5-10.1); CREATININE 1.9 mg/dL (0.6-1.0); GFR 28.1
--- NOTE | 2019-07-24 10:05 | PDOC ---
PULMONARY PROGRESS NOTES Subjective Patient intubated on 07/10 , sedated Currently on assist control ventilation 450 tidal volume 8 of PEEP ,40%FIO2 , no overnight concerns from nursing, remains on levophed low dose Vitals Vital Signs Date Time Temp Pulse Resp B/P (MAP) Pulse Ox O2 Delivery O2 Flow Rate FiO2 07/24/19 08:00 99 Ventilator 07/24/19 06:00 79 18 102/54 (70) 07/24/19 05:00 97.8 97.8 Comments intubated/sedated Lungs: Other (dimished in BLL) Cardiovascular: S1, S2 Abdomen: Soft, Non-tender Extremities: Other (+3 generalized edema ) Skin: Warm, Dry Labs Laboratory Tests Test 07/22/19 13:11 07/22/19 15:30 07/22/19 16:57 07/22/19 23:58 Glucose (Fingerstick) 159 mg/dL (70-99) 185 mg/dL (70-99) 186 mg/dL (70-99) O2 Saturation 97 % (92-99) Arterial Blood pH 7.55 (7.35-7.45) Arterial Blood pCO2 at Patient Temp 27 mmHg (35-46) Arterial Blood pO2 at Patient Temp 99 mmHg (75-108) Arterial Blood HCO3 23 mmol/L (21-28) Arterial Blood Base Excess 1 mmol/L (-3-3) FiO2 40 Test 07/23/19 04:40 07/23/19 05:22 07/23/19 14:54 07/23/19 17:50 White Blood Count 11.2 x10^3/uL (4.0-11.0) Red Blood Count 2.43 x10^6/uL (3.50-5.40) Hemoglobin 8.0 g/dL (12.0-15.5) Hematocrit 23.9 % (36.0-47.0) Mean Corpuscular Volume 98 fL (79-100) Mean Corpuscular Hemoglobin 33 pg (25-35) Mean Corpuscular Hemoglobin Concent 33 g/dL (31-37) Red Cell Distribution Width 18.3 % (11.5-14.5) Platelet Count 209 x10^3/uL (140-400) Sodium Level 135 mmol/L (136-145) Potassium Level 4.0 mmol/L (3.5-5.1) Chloride Level 103 mmol/L (98-107) Carbon Dioxide Level 25 mmol/L (21-32) Anion Gap 7 (6-14) Blood Urea Nitrogen 54 mg/dL (7-20) Creatinine 2.0 mg/dL (0.6-1.0) Estimated GFR (Cockcroft-Gault) 26.5 Glucose Level 175 mg/dL (70-99) Calcium Level 8.3 mg/dL (8.5-10.1) Phosphorus Level 3.9 mg/dL (2.6-4.7) Glucose (Fingerstick) 183 mg/dL (70-99) Urine Collection Type Unknown Urine Color Red Urine Clarity Cloudy Urine pH 5.0 (<5.0-8.0) Urine Specific [place] 1.025 (1.000-1.030) Urine Protein 100 mg/dL (NEG-TRACE) Urine Glucose (UA) Negative mg/dL (NEG) Urine Ketones (Stick) Trace mg/dL (NEG) Urine Blood Large (NEG) Urine Nitrite Positive (NEG) Urine Bilirubin Small (NEG) Urine Urobilinogen Dipstick 0.2 mg/dL (0.2 mg/dL) Urine Leukocyte Esterase Small (NEG) Urine RBC Rare /HPF (0-2) Urine WBC 1-4 /HPF (0-4) Urine Squamous Epithelial Cells Occ /LPF Urine Amorphous Sediment Present /HPF Urine Bacteria 0 /HPF (0-FEW) O2 Saturation 98 % (92-99) Arterial Blood pH 7.48 (7.35-7.45) Arterial Blood pCO2 at Patient Temp 30 mmHg (35-46) Arterial Blood pO2 at Patient Temp 122 mmHg (75-108) Arterial Blood HCO3 22 mmol/L (21-28) Arterial Blood Base Excess -1 mmol/L (-3-3) FiO2 50 Test 07/23/19 18:38 07/23/19 23:52 07/24/19 06:00 07/24/19 06:17 Glucose (Fingerstick) 171 mg/dL (70-99) 173 mg/dL (70-99) 167 mg/dL (70-99) White Blood Count 9.6 x10^3/uL (4.0-11.0) Red Blood Count 2.42 x10^6/uL (3.50-5.40) Hemoglobin 7.8 g/dL (12.0-15.5) Hematocrit 23.8 % (36.0-47.0) Mean Corpuscular Volume 98 fL (79-100) Mean Corpuscular Hemoglobin 32 pg (25-35) Mean Corpuscular Hemoglobin Concent 33 g/dL (31-37) Red Cell Distribution Width 19.5 % (11.5-14.5) Platelet Count 198 x10^3/uL (140-400) Neutrophils (%) (Auto) 76 % (31-73) Lymphocytes (%) (Auto) 10 % (24-48) Monocytes (%) (Auto) 7 % (0-9) Eosinophils (%) (Auto) 7 % (0-3) Basophils (%) (Auto) 1 % (0-3) Neutrophils # (Auto) 7.3 x10^3/uL (1.8-7.7) Lymphocytes # (Auto) 0.9 x10^3/uL (1.0-4.8) Monocytes # (Auto) 0.7 x10^3/uL (0.0-1.1) Eosinophils # (Auto) 0.6 x10^3/uL (0.0-0.7) Basophils # (Auto) 0.0 x10^3/uL (0.0-0.2) Test 07/24/19 08:00 O2 Saturation 97 % (92-99) Arterial Blood pH 7.42 (7.35-7.45) Arterial Blood pCO2 at Patient Temp 35 mmHg (35-46) Arterial Blood pO2 at Patient Temp 104 mmHg (75-108) Arterial Blood HCO3 22 mmol/L (21-28) Arterial Blood Base Excess -2 mmol/L (-3-3) FiO2 45 Laboratory Tests Test 07/23/19 14:54 07/23/19 17:50 07/23/19 18:38 07/23/19 23:52 Urine Collection Type Unknown Urine Color Red Urine Clarity Cloudy Urine pH 5.0 (<5.0-8.0) Urine Specific [place] 1.025 (1.000-1.030) Urine Protein 100 mg/dL (NEG-TRACE) Urine Glucose (UA) Negative mg/dL (NEG) Urine Ketones (Stick) Trace mg/dL (NEG) Urine Blood Large (NEG) Urine Nitrite Positive (NEG) Urine Bilirubin Small (NEG) Urine Urobilinogen Dipstick 0.2 mg/dL (0.2 mg/dL) Urine Leukocyte Esterase Small (NEG) Urine RBC Rare /HPF (0-2) Urine WBC 1-4 /HPF (0-4) Urine Squamous Epithelial Cells Occ /LPF Urine Amorphous Sediment Present /HPF Urine Bacteria 0 /HPF (0-FEW) O2 Saturation 98 % (92-99) Arterial Blood pH 7.48 (7.35-7.45) Arterial Blood pCO2 at Patient Temp 30 mmHg (35-46) Arterial Blood pO2 at Patient Temp 122 mmHg (75-108) Arterial Blood HCO3 22 mmol/L (21-28) Arterial Blood Base Excess -1 mmol/L (-3-3) FiO2 50 Glucose (Fingerstick) 171 mg/dL (70-99) 173 mg/dL (70-99) Test 07/24/19 06:00 07/24/19 06:17 07/24/19 08:00 White Blood Count 9.6 x10^3/uL (4.0-11.0) Red Blood Count 2.42 x10^6/uL (3.50-5.40) Hemoglobin 7.8 g/dL (12.0-15.5) Hematocrit 23.8 % (36.0-47.0) Mean Corpuscular Volume 98 fL (79-100) Mean Corpuscular Hemoglobin 32 pg (25-35) Mean Corpuscular Hemoglobin Concent 33 g/dL (31-37) Red Cell Distribution Width 19.5 % (11.5-14.5) Platelet Count 198 x10^3/uL (140-400) Neutrophils (%) (Auto) 76 % (31-73) Lymphocytes (%) (Auto) 10 % (24-48) Monocytes (%) (Auto) 7 % (0-9) Eosinophils (%) (Auto) 7 % (0-3) Basophils (%) (Auto) 1 % (0-3) Neutrophils # (Auto) 7.3 x10^3/uL (1.8-7.7) Lymphocytes # (Auto) 0.9 x10^3/uL (1.0-4.8) Monocytes # (Auto) 0.7 x10^3/uL (0.0-1.1) Eosinophils # (Auto) 0.6 x10^3/uL (0.0-0.7) Basophils # (Auto) 0.0 x10^3/uL (0.0-0.2) Glucose (Fingerstick) 167 mg/dL (70-99) O2 Saturation 97 % (92-99) Arterial Blood pH 7.42 (7.35-7.45) Arterial Blood pCO2 at Patient Temp 35 mmHg (35-46) Arterial Blood pO2 at Patient Temp 104 mmHg (75-108) Arterial Blood HCO3 22 mmol/L (21-28) Arterial Blood Base Excess -2 mmol/L (-3-3) FiO2 45 Medications Active Scripts Medications Dose Route/Sig Max Daily Dose Days Date Category Bisoprolol Fumarate 5 Mg Tablet 10 Mg PO DAILY 07/04/19 Reported Comments Chest x-ray reviewed 07/20, poor ins film, basal effusions and volume loss CT chest 07/17 reviewed Impression . IMPRESSION: 1. Acute hypoxemic respiratory failure secondary to ARDS due to acute pancreatitis, septic shock, abdominal distention, and pneumonia.and pleural effusions. Pleural effusions secondary to abdominal process and/or general volume overload from renal failure. 2. Gallstone pancreatitis. WITH NECROSIS 3. Severe metabolic acidosis.stable 4. Acute kidney injury. ON CRRT 5. Acute gallstone pancreatitis. 6. Hypoalbuminemia. 7. Hypocalcemia. 8. Leukocytosis 9. Chronic anemia 10. Covid 19 testing negative 11. Acute /chronic anemia suspected hemorrhagic fluid in pelvis 12, Fever per ID Plan . AC mode, sedation vacation and attempt CPAP trial Transfuse prn, check H/H Not a surgical candidate per surgery Antibiotics per ID, Follow nephrology input,HD per renal Nutritional support with TPN Prognosis is guarded DVT/GI PPX d/w RN/RT FULL CODE VINAYAK LANDRUM MD Jul 24, 2019 10:05
[2019-07-24] MEDS: TPN PER PHARMACY MC PRN (10:46)
--- NOTE | 2019-07-24 10:46 | NUR ---
Pharmacy TPN Dosing Note S: SCOTT AVILA is a 48 year old F Currently receiving Central Continuous TPN started 07/06/19 B:Pertinent PMH: Necrotizing pancreatitis Height: 5 feet, 8 inches Weight: 111.4 kg Current diet: NPO LABS: Sodium: 139 Potassium: 4 Chloride: 104 Calcium: 8.2 Corrected Calcium: 9.96 Magnesium: 2.1 CO2: 26 SCr: 1.9 Glucose: 164-173 Albumin: 1.8 AST: 47 ALT: 20 TPN FORMULA: TPN TYPE: Central Continuous AMINO ACIDS: 125 gm DEXTROSE: 195 gm LIPIDS: 40 gm SODIUM CHLORIDE: 90 mEq POTASSIUM CHLORIDE: 15 mEq POTASSIUM PHOSPHATE: 10 mmol MAGNESIUM: 8 mEq CALCIUM: 15 mEq INSULIN: 25 units MULTIPLE VITAMIN: 10 ml TRACE ELEMENTS: 0.5 ml(s) TPN PLAN: Continue same TPN. -BMP, Phos and Mag in the AM. R: Continue TPN as yesterday. Will monitor electrolytes, glucose, and tolerance to TPN. MIKAYLA CHU [facility], 07/24/19 1046
--- NOTE | 2019-07-24 11:18 | PDOC ---
LISANDRO PARKER REMOTE RECRUITER 07/24/19 1118: SURGICAL PROGRESS NOTE Subjective vent, sedated Vital Signs Vital Signs Date Time Temp Pulse Resp B/P (MAP) Pulse Ox O2 Delivery O2 Flow Rate FiO2 07/24/19 10:00 80 17 93/57 (69) 99 Ventilator 07/24/19 08:00 99.5 99.5 I&O Intake and Output 07/24/19 07:00 Intake Total 6471 ml Output Total 695 ml Balance 5776 ml IV Total 6471 ml Output Urine Total 495 ml Gastric Drainage Total 200 ml PATIENT HAS A ROSARIO: Yes HEENT: Other (og bilious ) Abdomen: Soft, Other (distended ) Labs Laboratory Tests Test 07/22/19 13:11 07/22/19 15:30 07/22/19 16:57 07/22/19 23:58 Glucose (Fingerstick) 159 mg/dL (70-99) 185 mg/dL (70-99) 186 mg/dL (70-99) O2 Saturation 97 % (92-99) Arterial Blood pH 7.55 (7.35-7.45) Arterial Blood pCO2 at Patient Temp 27 mmHg (35-46) Arterial Blood pO2 at Patient Temp 99 mmHg (75-108) Arterial Blood HCO3 23 mmol/L (21-28) Arterial Blood Base Excess 1 mmol/L (-3-3) FiO2 40 Test 07/23/19 04:40 07/23/19 05:22 07/23/19 14:54 07/23/19 17:50 White Blood Count 11.2 x10^3/uL (4.0-11.0) Red Blood Count 2.43 x10^6/uL (3.50-5.40) Hemoglobin 8.0 g/dL (12.0-15.5) Hematocrit 23.9 % (36.0-47.0) Mean Corpuscular Volume 98 fL (79-100) Mean Corpuscular Hemoglobin 33 pg (25-35) Mean Corpuscular Hemoglobin Concent 33 g/dL (31-37) Red Cell Distribution Width 18.3 % (11.5-14.5) Platelet Count 209 x10^3/uL (140-400) Sodium Level 135 mmol/L (136-145) Potassium Level 4.0 mmol/L (3.5-5.1) Chloride Level 103 mmol/L (98-107) Carbon Dioxide Level 25 mmol/L (21-32) Anion Gap 7 (6-14) Blood Urea Nitrogen 54 mg/dL (7-20) Creatinine 2.0 mg/dL (0.6-1.0) Estimated GFR (Cockcroft-Gault) 26.5 Glucose Level 175 mg/dL (70-99) Calcium Level 8.3 mg/dL (8.5-10.1) Phosphorus Level 3.9 mg/dL (2.6-4.7) Glucose (Fingerstick) 183 mg/dL (70-99) Urine Collection Type Unknown Urine Color Red Urine Clarity Cloudy Urine pH 5.0 (<5.0-8.0) Urine Specific [place] 1.025 (1.000-1.030) Urine Protein 100 mg/dL (NEG-TRACE) Urine Glucose (UA) Negative mg/dL (NEG) Urine Ketones (Stick) Trace mg/dL (NEG) Urine Blood Large (NEG) Urine Nitrite Positive (NEG) Urine Bilirubin Small (NEG) Urine Urobilinogen Dipstick 0.2 mg/dL (0.2 mg/dL) Urine Leukocyte Esterase Small (NEG) Urine RBC Rare /HPF (0-2) Urine WBC 1-4 /HPF (0-4) Urine Squamous Epithelial Cells Occ /LPF Urine Amorphous Sediment Present /HPF Urine Bacteria 0 /HPF (0-FEW) O2 Saturation 98 % (92-99) Arterial Blood pH 7.48 (7.35-7.45) Arterial Blood pCO2 at Patient Temp 30 mmHg (35-46) Arterial Blood pO2 at Patient Temp 122 mmHg (75-108) Arterial Blood HCO3 22 mmol/L (21-28) Arterial Blood Base Excess -1 mmol/L (-3-3) FiO2 50 Test 07/23/19 18:38 07/23/19 23:52 07/24/19 06:00 07/24/19 06:17 Glucose (Fingerstick) 171 mg/dL (70-99) 173 mg/dL (70-99) 167 mg/dL (70-99) White Blood Count 9.6 x10^3/uL (4.0-11.0) Red Blood Count 2.42 x10^6/uL (3.50-5.40) Hemoglobin 7.8 g/dL (12.0-15.5) Hematocrit 23.8 % (36.0-47.0) Mean Corpuscular Volume 98 fL (79-100) Mean Corpuscular Hemoglobin 32 pg (25-35) Mean Corpuscular Hemoglobin Concent 33 g/dL (31-37) Red Cell Distribution Width 19.5 % (11.5-14.5) Platelet Count 198 x10^3/uL (140-400) Neutrophils (%) (Auto) 76 % (31-73) Lymphocytes (%) (Auto) 10 % (24-48) Monocytes (%) (Auto) 7 % (0-9) Eosinophils (%) (Auto) 7 % (0-3) Basophils (%) (Auto) 1 % (0-3) Neutrophils # (Auto) 7.3 x10^3/uL (1.8-7.7) Lymphocytes # (Auto) 0.9 x10^3/uL (1.0-4.8) Monocytes # (Auto) 0.7 x10^3/uL (0.0-1.1) Eosinophils # (Auto) 0.6 x10^3/uL (0.0-0.7) Basophils # (Auto) 0.0 x10^3/uL (0.0-0.2) Sodium Level 139 mmol/L (136-145) Potassium Level 4.0 mmol/L (3.5-5.1) Chloride Level 104 mmol/L (98-107) Carbon Dioxide Level 26 mmol/L (21-32) Anion Gap 9 (6-14) Blood Urea Nitrogen 54 mg/dL (7-20) Creatinine 1.9 mg/dL (0.6-1.0) Estimated GFR (Cockcroft-Gault) 28.1 BUN/Creatinine Ratio 28 (6-20) Glucose Level 164 mg/dL (70-99) Calcium Level 8.3 mg/dL (8.5-10.1) Total Bilirubin 1.0 mg/dL (0.2-1.0) Aspartate Amino Transf (AST/SGOT) 47 U/L (15-37) Alanine Aminotransferase (ALT/SGPT) 20 U/L (14-59) Alkaline Phosphatase 81 U/L (46-116) Total Protein 5.0 g/dL (6.4-8.2) Albumin 2.3 g/dL (3.4-5.0) Albumin/Globulin Ratio 0.9 (1.0-1.7) Test 07/24/19 08:00 O2 Saturation 97 % (92-99) Arterial Blood pH 7.42 (7.35-7.45) Arterial Blood pCO2 at Patient Temp 35 mmHg (35-46) Arterial Blood pO2 at Patient Temp 104 mmHg (75-108) Arterial Blood HCO3 22 mmol/L (21-28) Arterial Blood Base Excess -2 mmol/L (-3-3) FiO2 45 Laboratory Tests Test 07/23/19 14:54 07/23/19 17:50 07/23/19 18:38 07/23/19 23:52 Urine Collection Type Unknown Urine Color Red Urine Clarity Cloudy Urine pH 5.0 (<5.0-8.0) Urine Specific [place] 1.025 (1.000-1.030) Urine Protein 100 mg/dL (NEG-TRACE) Urine Glucose (UA) Negative mg/dL (NEG) Urine Ketones (Stick) Trace mg/dL (NEG) Urine Blood Large (NEG) Urine Nitrite Positive (NEG) Urine Bilirubin Small (NEG) Urine Urobilinogen Dipstick 0.2 mg/dL (0.2 mg/dL) Urine Leukocyte Esterase Small (NEG) Urine RBC Rare /HPF (0-2) Urine WBC 1-4 /HPF (0-4) Urine Squamous Epithelial Cells Occ /LPF Urine Amorphous Sediment Present /HPF Urine Bacteria 0 /HPF (0-FEW) O2 Saturation 98 % (92-99) Arterial Blood pH 7.48 (7.35-7.45) Arterial Blood pCO2 at Patient Temp 30 mmHg (35-46) Arterial Blood pO2 at Patient Temp 122 mmHg (75-108) Arterial Blood HCO3 22 mmol/L (21-28) Arterial Blood Base Excess -1 mmol/L (-3-3) FiO2 50 Glucose (Fingerstick) 171 mg/dL (70-99) 173 mg/dL (70-99) Test 07/24/19 06:00 07/24/19 06:17 07/24/19 08:00 White Blood Count 9.6 x10^3/uL (4.0-11.0) Red Blood Count 2.42 x10^6/uL (3.50-5.40) Hemoglobin 7.8 g/dL (12.0-15.5) Hematocrit 23.8 % (36.0-47.0) Mean Corpuscular Volume 98 fL (79-100) Mean Corpuscular Hemoglobin 32 pg (25-35) Mean Corpuscular Hemoglobin Concent 33 g/dL (31-37) Red Cell Distribution Width 19.5 % (11.5-14.5) Platelet Count 198 x10^3/uL (140-400) Neutrophils (%) (Auto) 76 % (31-73) Lymphocytes (%) (Auto) 10 % (24-48) Monocytes (%) (Auto) 7 % (0-9) Eosinophils (%) (Auto) 7 % (0-3) Basophils (%) (Auto) 1 % (0-3) Neutrophils # (Auto) 7.3 x10^3/uL (1.8-7.7) Lymphocytes # (Auto) 0.9 x10^3/uL (1.0-4.8) Monocytes # (Auto) 0.7 x10^3/uL (0.0-1.1) Eosinophils # (Auto) 0.6 x10^3/uL (0.0-0.7) Basophils # (Auto) 0.0 x10^3/uL (0.0-0.2) Sodium Level 139 mmol/L (136-145) Potassium Level 4.0 mmol/L (3.5-5.1) Chloride Level 104 mmol/L (98-107) Carbon Dioxide Level 26 mmol/L (21-32) Anion Gap 9 (6-14) Blood Urea Nitrogen 54 mg/dL (7-20) Creatinine 1.9 mg/dL (0.6-1.0) Estimated GFR (Cockcroft-Gault) 28.1 BUN/Creatinine Ratio 28 (6-20) Glucose Level 164 mg/dL (70-99) Calcium Level 8.3 mg/dL (8.5-10.1) Total Bilirubin 1.0 mg/dL (0.2-1.0) Aspartate Amino Transf (AST/SGOT) 47 U/L (15-37) Alanine Aminotransferase (ALT/SGPT) 20 U/L (14-59) Alkaline Phosphatase 81 U/L (46-116) Total Protein 5.0 g/dL (6.4-8.2) Albumin 2.3 g/dL (3.4-5.0) Albumin/Globulin Ratio 0.9 (1.0-1.7) Glucose (Fingerstick) 167 mg/dL (70-99) O2 Saturation 97 % (92-99) Arterial Blood pH 7.42 (7.35-7.45) Arterial Blood pCO2 at Patient Temp 35 mmHg (35-46) Arterial Blood pO2 at Patient Temp 104 mmHg (75-108) Arterial Blood HCO3 22 mmol/L (21-28) Arterial Blood Base Excess -2 mmol/L (-3-3) FiO2 45 Problem List Problems Medical Problems: (1) Acute pancreatitis Status: Acute (2) Cholelithiasis Status: Acute Assessment/Plan supportive measures tentative trach 07/24 with DAVON Reich MD 07/24/19 1519: SURGICAL PROGRESS NOTE Assessment/Plan Pt seen and examined. Agree with Ms. Parker's note Pt currently on dialysis, tolerating abd soft cont supportive care plan tracheostomy in AM. LISANDRO PARKER REMOTE RECRUITER Jul 24, 2019 11:18 DAVON SIMMS MD Jul 24, 2019 15:19
[2019-07-24] MEDS ORDERED: IV NORMAL SALINE 1000ML BAG 1,000 ML IV PRN (12:23)
[2019-07-24] MEDS ORDERED: ALBUMIN HUMAN 25% 200 ML IV ONE (12:30)
[2019-07-24] MEDS ORDERED: DIALYSIS PATIENT. MC PRN (12:30)
[2019-07-24] MEDS ORDERED: diphenhydrAMINE 50 MG/ML VIAL IV PRN ×2 (12:30)
--- NOTE | 2019-07-24 12:54 | PDOC ---
Infectious Disease Note Subjective: Subjective Sedated and intubated, afebrile last 24 hrs TPN Rectal tube Vital Signs: Vital Signs Vital Signs Date Time Temp Pulse Resp B/P (MAP) Pulse Ox O2 Delivery O2 Flow Rate FiO2 07/24/19 12:00 99.4 81 17 103/55 (71) 100 Ventilator 99.4 Physical Exam: PHYSICAL EXAM GENERAL: Orally intubated/sedated - generalized anasarca HEENT: Pupils equal, ETT, OGT NECK: Supple LUNGS: Diminished aeration bases HEART: S1, S2, regular ABDOMEN: Distended, hypoactive BS, Rectal tube in place : Lind EXTREMITIES: Generalized edema, no cyanosis - some mottling, [place] boots & SCDs bilaterally DERMATOLOGIC: Warm and dry. No generalized rash. CENTRAL NERVOUS SYSTEM: Sedated RIJ Temp HDC, RUE-PICC & LIJ Medications: Inpatient Meds: Current Medications Medications (Trade) Dose Ordered Sig/Yvon Start Time Stop Time Status Last Admin Dose Admin Acetaminophen (Tylenol Supp) 650 mg PRN Q6HRS PRN 07/12/19 10:30 07/12/19 10:37 650 MG Acetaminophen (Tylenol) 650 mg PRN Q6HRS PRN 07/09/19 03:36 07/14/19 07:35 650 MG Albumin Human 200 ml @ 200 mls/hr 1X ONCE 07/24/19 12:30 07/24/19 13:29 Albuterol Sulfate (Ventolin Neb Soln) 2.5 mg 1X ONCE 07/05/19 22:30 07/05/19 22:31 DC 07/06/19 00:56 2.5 MG Alteplase, Recombinant (Cathflo For Central Catheter Clearance) 1 mg 1X ONCE 07/19/19 22:00 07/19/19 22:01 DC 07/19/19 22:05 1 MG Artificial Tears (Artificial Tears) 1 drop PRN Q1HR PRN 07/11/19 08:15 Atenolol (Tenormin) 100 mg DAILY 07/05/19 09:00 07/04/19 20:08 DC Atropine Sulfate (ATROPINE 0.5mg SYRINGE) 0.5 mg PRN Q5MIN PRN 07/21/19 08:15 Benzocaine (Hurricaine One) 1 spray 1X ONCE 07/08/19 14:30 07/08/19 14:31 DC 07/08/19 16:38 1 SPRAY Calcium Carbonate/ Glycine (Tums) 500 mg PRN AFTMEALHC PRN 07/06/19 17:45 Calcium Chloride 1000 mg/Sodium Chloride 110 ml @ 220 mls/hr 1X ONCE 07/05/19 22:30 07/05/19 22:59 DC 07/05/19 22:11 220 MLS/HR Calcium Chloride 3000 mg/Sodium Chloride 1,030 ml @ 50 mls/hr [id number] 07/07/19 08:00 07/09/19 15:23 DC 07/09/19 02:17 50 MLS/HR Calcium Gluconate (Calcium Gluconate) 2,000 mg 1X ONCE 07/07/19 02:15 07/07/19 02:16 DC 07/07/19 02:19 2,000 MG Calcium Gluconate 1000 mg/Sodium Chloride 110 ml @ 220 mls/hr 1X ONCE 07/06/19 03:30 07/06/19 03:59 DC 07/06/19 03:21 220 MLS/HR Calcium Gluconate 2000 mg/Sodium Chloride 120 ml @ 220 mls/hr 1X ONCE 07/06/19 07:30 07/06/19 08:02 DC 07/06/19 09:05 220 MLS/HR Cefepime HCl (Maxipime) 2 gm Q12HR 07/13/19 09:00 07/24/19 08:52 2 GM Daptomycin 500 mg/ Sodium Chloride 50 ml @ 100 mls/hr Q48H 07/13/19 08:30 07/23/19 15:01 100 MLS/HR Dexmedetomidine HCl 400 mcg/ Sodium Chloride 100 ml @ 0 mls/hr CONT PRN 07/21/19 08:15 07/24/19 10:05 27.8 MLS/HR Dextrose (Dextrose 50%-Water Syringe) 12.5 gm PRN Q15MIN PRN 07/04/19 09:30 Digoxin (Lanoxin) 125 mcg 1X ONCE 07/07/19 18:00 07/07/19 18:01 DC 07/07/19 17:10 125 MCG Diphenhydramine HCl (Benadryl) 25 mg 1X PRN PRN 07/24/19 12:30 07/25/19 12:29 Etomidate (Amidate) 8 mg 1X ONCE 07/11/19 08:30 07/11/19 08:31 DC 07/11/19 08:33 8 MG Fentanyl Citrate (Fentanyl 2ml Vial) 50 mcg PRN Q5MIN PRN 07/25/19 07:00 07/26/19 06:59 Furosemide (Lasix) 20 mg 1X ONCE 07/21/19 08:15 07/21/19 08:16 DC 07/21/19 08:19 20 MG Heparin Sodium (Porcine) (Heparin Sodium) 5,000 unit Q12HR 07/22/19 21:00 07/24/19 09:01 5,000 UNIT Hydromorphone HCl (Dilaudid) 1 mg PRN Q3HRS PRN 07/05/19 12:00 07/19/19 00:25 DC 07/11/19 05:13 1 MG Info (CONTRAST GIVEN -- Rx MONITORING) 1 each PRN DAILY PRN 07/18/19 11:45 07/20/19 11:44 DC Info (Icu Electrolyte Protocol) 1 ea CONT PRN PRN 07/17/19 13:15 Info (PHARMACY MONITORING -- do not chart) 1 each PRN DAILY PRN 07/24/19 12:30 Info (Tpn Per Pharmacy) 1 each PRN DAILY PRN 07/06/19 12:30 UNV Insulin Human Lispro (HumaLOG) 0-9 UNITS Q6HRS 07/04/19 09:30 07/24/19 06:19 4 UNITS Insulin Human Regular (HumuLIN R VIAL) 5 unit 1X ONCE 07/05/19 22:30 07/05/19 22:31 DC 07/05/19 22:14 5 UNIT Iohexol (Omnipaque 240 Mg/ml) 30 ml 1X ONCE 07/18/19 11:30 07/18/19 11:33 DC 07/18/19 11:30 30 ML Iohexol (Omnipaque 300 Mg/ml) 60 ml 1X ONCE 07/05/19 17:00 07/05/19 17:01 DC 07/05/19 17:20 60 ML Iohexol (Omnipaque 350 Mg/ml) 90 ml 1X ONCE 07/04/19 03:30 07/04/19 03:31 DC 07/04/19 03:25 90 ML Ketorolac Tromethamine (Toradol 30mg Vial) 30 mg 1X ONCE 07/04/19 03:00 07/04/19 03:01 DC 07/04/19 02:54 30 MG Lidocaine HCl (Buffered Lidocaine 1%) 6 ml 1X ONCE 07/21/19 09:00 07/21/19 09:06 DC 07/21/19 09:05 6 ML Lidocaine HCl (Glydo (Lidocaine) Jelly) 1 ramu 1X ONCE 07/08/19 14:30 07/08/19 14:31 DC 07/08/19 16:38 1 RAMU Lidocaine HCl (Xylocaine-Mpf 1% 2ml Vial) 2 ml PRN 1X PRN 07/25/19 07:00 07/26/19 06:59 Linezolid/Dextrose 300 ml @ 300 mls/hr Q12HR 07/08/19 20:00 07/15/19 07:50 DC 07/14/19 21:04 300 MLS/HR Lorazepam (Ativan Inj) 1 mg PRN Q4HRS PRN 07/07/19 09:00 07/11/19 00:34 1 MG Magnesium Sulfate 50 ml @ 25 mls/hr PRN DAILY PRN 07/24/19 09:15 Meropenem 1 gm/ Sodium Chloride 100 ml @ 200 mls/hr Q8HRS 07/05/19 20:00 07/06/19 08:48 DC 07/06/19 05:45 200 MLS/HR Meropenem 500 mg/ Sodium Chloride 50 ml @ 100 mls/hr Q6HRS 07/12/19 09:00 07/13/19 07:29 DC 07/13/19 06:00 100 MLS/HR Metoprolol Tartrate (Lopressor Vial) 5 mg Q6HRS 07/05/19 10:15 07/16/19 08:48 DC 07/14/19 00:12 5 MG Metronidazole 100 ml @ 100 mls/hr Q6HRS 07/11/19 08:30 07/24/19 11:30 100 MLS/HR Micafungin Sodium 100 mg/Dextrose 100 ml @ 100 mls/hr Q24H 07/11/19 09:00 07/24/19 08:51 100 MLS/HR Midazolam HCl (Versed) 5 mg 1X ONCE 07/11/19 08:30 07/11/19 08:31 DC Midazolam HCl 100 mg/Sodium Chloride 100 ml @ 7 mls/hr CONT PRN 07/16/19 16:00 07/24/19 05:57 7 MLS/HR Midazolam HCl 50 mg/Sodium Chloride 50 ml @ 0 mls/hr CONT PRN 07/11/19 08:15 07/16/19 15:59 DC 07/14/19 22:39 7 MLS/HR Morphine Sulfate (Morphine Sulfate) 2 mg PRN Q2HR PRN 07/04/19 05:00 07/05/19 14:15 DC 07/05/19 12:26 2 MG Multi-Ingred Cream/Lotion/Oil/ Oint (Artificial Tears Eye Ointment) 1 ramu PRN Q1HR PRN 07/13/19 17:30 07/22/19 11:05 1 RAMU Norepinephrine Bitartrate 8 mg/ Dextrose 258 ml @ 17.299 mls/ hr CONT PRN 07/05/19 15:30 07/22/19 07:51 4.1 MLS/HR Ondansetron HCl (Zofran) 4 mg PRN Q6HRS PRN 07/25/19 07:00 07/26/19 06:59 Pantoprazole Sodium (PROTONIX VIAL for IV PUSH) 40 mg DAILYAC 07/04/19 11:30 07/24/19 07:32 40 MG Piperacillin Sod/ Tazobactam Sod 4.5 gm/Sodium Chloride 100 ml @ 200 mls/hr 1X ONCE 07/04/19 06:00 07/04/19 06:29 DC 07/04/19 05:44 200 MLS/HR Potassium Chloride 15 meq/ Bicarbonate Dialysis Soln w/ out KCl 5,007.5 ml @ 1,000 mls/ hr Q5H1M 07/17/19 20:00 07/21/19 13:08 DC 07/20/19 18:14 1,000 MLS/HR Potassium Chloride 20 meq/ Bicarbonate Dialysis Soln w/ out KCl 5,010 ml @ 1,000 mls/hr Q5H1M 07/13/19 16:00 07/17/19 19:59 DC 07/17/19 14:54 1,000 MLS/HR Potassium Chloride/Water 100 ml @ 100 mls/hr Q1H 07/12/19 11:00 07/12/19 12:59 DC 07/12/19 12:12 100 MLS/HR Potassium Phosphate 20 mmol/ Sodium Chloride 106.6667 ml @ 51.667 m... 1X ONCE 07/13/19 13:00 07/13/19 15:03 DC 07/13/19 12:51 51.667 MLS/HR Prochlorperazine Edisylate (Compazine) 5 mg PACU PRN PRN 07/25/19 07:00 07/26/19 06:59 Propofol 0 ml @ As Directed STK-MED ONCE 07/11/19 07:53 07/11/19 07:53 DC Ringer's Solution 1,000 ml @ 30 mls/hr Q24H 07/25/19 07:00 07/25/19 18:59 Sodium Bicarbonate 50 meq/Sodium Chloride 1,050 ml @ 75 mls/hr Q14H 07/06/19 07:30 07/11/19 10:28 DC 07/10/19 21:10 75 MLS/HR Sodium Chloride 1,000 ml @ 1,000 mls/hr Q1H PRN 07/24/19 12:23 07/24/19 18:22 Sodium Chloride (Normal Saline Flush) 10 ml 1X PRN PRN 07/22/19 07:30 07/23/19 07:29 DC Sodium Chloride 90 meq/Calcium Gluconate 10 meq/ Multivitamins 10 ml/Chromium/ Copper/Manganese/ Seleni/Zn 0.5 ml/ Total Parenteral Nutrition/Amino Acids/Dextrose/ Fat Emulsion Intravenous 1,512 ml @ 63 mls/hr TPN CONT 07/06/19 22:00 07/07/19 21:59 DC 07/06/19 22:06 63 MLS/HR Sodium Chloride 90 meq/Calcium Gluconate 10 meq/ Multivitamins 10 ml/Chromium/ Copper/Manganese/ Seleni/Zn 1 ml/ Total Parenteral Nutrition/Amino Acids/Dextrose/ Fat Emulsion Intravenous 55.005 ml @ 2.292 mls/hr TPN CONT 07/06/19 22:00 07/06/19 12:33 DC Sodium Chloride 90 meq/Magnesium Sulfate 10 meq/ Calcium Gluconate 20 meq/ Multivitamins 10 ml/Chromium/ Copper/Manganese/ Seleni/Zn 0.5 ml/ Total Parenteral Nutrition/Amino Acids/Dextrose/ Fat Emulsion Intravenous 1,512 ml @ 63 mls/hr TPN CONT 07/07/19 22:00 07/08/19 21:59 DC 07/07/19 22:25 63 MLS/HR Sodium Chloride 90 meq/Potassium Chloride 15 meq/ Potassium Phosphate 10 mmol/ Magnesium Sulfate 8 meq/Calcium Gluconate 15 meq/ Multivitamins 10 ml/Chromium/ Copper/Manganese/ Seleni/Zn 0.5 ml/ Insulin Human Regular 25 unit/ Total Parenteral Nutrition/Amino Acids/Dextrose/ Fat Emulsion Intravenous 1,400 ml @ 58.333 mls/ hr TPN CONT 07/24/19 22:00 07/25/19 21:59 Sodium Chloride 90 meq/Potassium Chloride 15 meq/ Potassium Phosphate 10 mmol/ Magnesium Sulfate 10 meq/Calcium Gluconate 20 meq/ Multivitamins 10 ml/Chromium/ Copper/Manganese/ Seleni/Zn 0.5 ml/ Total Parenteral Nutrition/Amino Acids/Dextrose/ Fat Emulsion Intravenous 1,400 ml @ 58.333 mls/ hr TPN CONT 07/11/19 22:00 07/12/19 21:59 DC 07/11/19 21:42 58.333 MLS/HR Sodium Chloride 90 meq/Potassium Chloride 15 meq/ Potassium Phosphate 15 mmol/ Magnesium Sulfate 10 meq/Calcium Gluconate 15 meq/ Multivitamins 10 ml/Chromium/ Copper/Manganese/ Seleni/Zn 0.5 ml/ Total Parenteral Nutrition/Amino Acids/Dextrose/ Fat Emulsion Intravenous 1,400 ml @ 58.333 mls/ hr TPN CONT 07/12/19 22:00 07/13/19 21:59 DC 07/12/19 22:17 58.333 MLS/HR Sodium Chloride 90 meq/Potassium Chloride 15 meq/ Potassium Phosphate 15 mmol/ Magnesium Sulfate 10 meq/Calcium Gluconate 20 meq/ Multivitamins 10 ml/Chromium/ Copper/Manganese/ Seleni/Zn 0.5 ml/ Total Parenteral Nutrition/Amino Acids/Dextrose/ Fat Emulsion Intravenous 1,200 ml @ 50 mls/hr TPN CONT 07/10/19 22:00 07/10/19 14:17 DC Sodium Chloride 90 meq/Potassium Chloride 15 meq/ Potassium Phosphate 18 mmol/ Magnesium Sulfate 8 meq/Calcium Gluconate 15 meq/ Multivitamins 10 ml/Chromium/ Copper/Manganese/ Seleni/Zn 0.5 ml/ Insulin Human Regular 10 unit/ Total Parenteral Nutrition/Amino Acids/Dextrose/ Fat Emulsion Intravenous 1,400 ml @ 58.333 mls/ hr TPN CONT 07/15/19 22:00 07/16/19 21:59 DC 07/15/19 21:43 58.333 MLS/HR Sodium Chloride 90 meq/Potassium Chloride 15 meq/ Potassium Phosphate 18 mmol/ Magnesium Sulfate 8 meq/Calcium Gluconate 15 meq/ Multivitamins 10 ml/Chromium/ Copper/Manganese/ Seleni/Zn 0.5 ml/ Insulin Human Regular 15 unit/ Total Parenteral Nutrition/Amino Acids/Dextrose/ Fat Emulsion Intravenous 1,400 ml @ 58.333 mls/ hr TPN CONT 07/18/19 22:00 07/19/19 21:59 DC 07/18/19 21:47 58.333 MLS/HR Sodium Chloride 90 meq/Potassium Chloride 15 meq/ Potassium Phosphate 18 mmol/ Magnesium Sulfate 8 meq/Calcium Gluconate 15 meq/ Multivitamins 10 ml/Chromium/ Copper/Manganese/ Seleni/Zn 0.5 ml/ Insulin Human Regular 20 unit/ Total Parenteral Nutrition/Amino Acids/Dextrose/ Fat Emulsion Intravenous 1,400 ml @ 58.333 mls/ hr TPN CONT 07/21/19 22:00 07/22/19 21:59 DC 07/21/19 22:45 58.333 MLS/HR Sodium Chloride 90 meq/Potassium Chloride 15 meq/ Potassium Phosphate 18 mmol/ Magnesium Sulfate 8 meq/Calcium Gluconate 15 meq/ Multivitamins 10 ml/Chromium/ Copper/Manganese/ Seleni/Zn 0.5 ml/ Total Parenteral Nutrition/Amino Acids/Dextrose/ Fat Emulsion Intravenous 1,400 ml @ 58.333 mls/ hr TPN CONT 07/14/19 22:00 07/15/19 21:59 DC 07/14/19 22:00 58.333 MLS/HR Succinylcholine Chloride (Anectine) 120 mg 1X ONCE 07/11/19 08:30 07/11/19 08:31 DC 07/11/19 08:34 120 MG Labs: Lab Laboratory Tests Test 07/23/19 14:54 07/23/19 17:50 07/23/19 18:38 07/23/19 23:52 Urine Collection Type Unknown Urine Color Red Urine Clarity Cloudy Urine pH 5.0 (<5.0-8.0) Urine Specific [place] 1.025 (1.000-1.030) Urine Protein 100 mg/dL (NEG-TRACE) Urine Glucose (UA) Negative mg/dL (NEG) Urine Ketones (Stick) Trace mg/dL (NEG) Urine Blood Large (NEG) Urine Nitrite Positive (NEG) Urine Bilirubin Small (NEG) Urine Urobilinogen Dipstick 0.2 mg/dL (0.2 mg/dL) Urine Leukocyte Esterase Small (NEG) Urine RBC Rare /HPF (0-2) Urine WBC 1-4 /HPF (0-4) Urine Squamous Epithelial Cells Occ /LPF Urine Amorphous Sediment Present /HPF Urine Bacteria 0 /HPF (0-FEW) O2 Saturation 98 % (92-99) Arterial Blood pH 7.48 (7.35-7.45) Arterial Blood pCO2 at Patient Temp 30 mmHg (35-46) Arterial Blood pO2 at Patient Temp 122 mmHg (75-108) Arterial Blood HCO3 22 mmol/L (21-28) Arterial Blood Base Excess -1 mmol/L (-3-3) FiO2 50 Glucose (Fingerstick) 171 mg/dL (70-99) 173 mg/dL (70-99) Test 07/24/19 06:00 07/24/19 06:17 07/24/19 08:00 07/24/19 11:44 White Blood Count 9.6 x10^3/uL (4.0-11.0) Red Blood Count 2.42 x10^6/uL (3.50-5.40) Hemoglobin 7.8 g/dL (12.0-15.5) Hematocrit 23.8 % (36.0-47.0) Mean Corpuscular Volume 98 fL (79-100) Mean Corpuscular Hemoglobin 32 pg (25-35) Mean Corpuscular Hemoglobin Concent 33 g/dL (31-37) Red Cell Distribution Width 19.5 % (11.5-14.5) Platelet Count 198 x10^3/uL (140-400) Neutrophils (%) (Auto) 76 % (31-73) Lymphocytes (%) (Auto) 10 % (24-48) Monocytes (%) (Auto) 7 % (0-9) Eosinophils (%) (Auto) 7 % (0-3) Basophils (%) (Auto) 1 % (0-3) Neutrophils # (Auto) 7.3 x10^3/uL (1.8-7.7) Lymphocytes # (Auto) 0.9 x10^3/uL (1.0-4.8) Monocytes # (Auto) 0.7 x10^3/uL (0.0-1.1) Eosinophils # (Auto) 0.6 x10^3/uL (0.0-0.7) Basophils # (Auto) 0.0 x10^3/uL (0.0-0.2) Sodium Level 139 mmol/L (136-145) Potassium Level 4.0 mmol/L (3.5-5.1) Chloride Level 104 mmol/L (98-107) Carbon Dioxide Level 26 mmol/L (21-32) Anion Gap 9 (6-14) Blood Urea Nitrogen 54 mg/dL (7-20) Creatinine 1.9 mg/dL (0.6-1.0) Estimated GFR (Cockcroft-Gault) 28.1 BUN/Creatinine Ratio 28 (6-20) Glucose Level 164 mg/dL (70-99) Calcium Level 8.3 mg/dL (8.5-10.1) Total Bilirubin 1.0 mg/dL (0.2-1.0) Aspartate Amino Transf (AST/SGOT) 47 U/L (15-37) Alanine Aminotransferase (ALT/SGPT) 20 U/L (14-59) Alkaline Phosphatase 81 U/L (46-116) Total Protein 5.0 g/dL (6.4-8.2) Albumin 2.3 g/dL (3.4-5.0) Albumin/Globulin Ratio 0.9 (1.0-1.7) Glucose (Fingerstick) 167 mg/dL (70-99) 162 mg/dL (70-99) O2 Saturation 97 % (92-99) Arterial Blood pH 7.42 (7.35-7.45) Arterial Blood pCO2 at Patient Temp 35 mmHg (35-46) Arterial Blood pO2 at Patient Temp 104 mmHg (75-108) Arterial Blood HCO3 22 mmol/L (21-28) Arterial Blood Base Excess -2 mmol/L (-3-3) FiO2 45 Objective: Assessment: Acute pancreatitis, early developing necrosis Cholelithiasis Leucocytosis improving JUANA,Hyperkalemia, Metabolic acidosis on HD Acute hypoxic resp failure ,bilateral pleural effusion hypocalcemia Prediabetes HTN Plan: Plan of Care Continue Dapto/cefepime (07/12), Flagyl and micafungin (07/10) -Previously on Merrem, Zyvox f/u cults Maintain aspiration precautions COVID-19 neg, 07/13 D/w nursing Critically ill YUNIOR JONES MD Jul 24, 2019 12:54
--- NOTE | 2019-07-24 18:32 | NUR ---
pt returned back to room per bed from dialysis. 5 Liters were removed during the dialysis run. pt tolerated well. able to decrease levophed to 8 cc/hour. spoke with pts 2 daughters today on telephone. telephone consent from [place] to have dr pappas place a tracheostomy on pt tomorrow. questions answered for daughters. 400 cc of geen-brown colored return from og tube.
[2019-07-24] MEDS: NOREPINEPHRINE VIAL 8 MG in IV DEXTROSE 5% 250 ML IV PRN (21:18)
[2019-07-24] MEDS ORDERED: AMINO ACID IV SCH ×11 (22:00)
[2019-07-24] MEDS ORDERED: [UNRECOGNIZED DRUG - OTHER] IV SCH ×11 (22:00)
[2019-07-24] MEDS ORDERED: TOTAL PARENTERAL NUTRITION IV SCH ×11 (22:00)
[2019-07-24] MEDS ORDERED: DEXTROSE 70% IV SCH ×11 (22:00)
[2019-07-25] VITALS (23 sets, daily range): BP systolic 73–188; BP diastolic 49–82
[2019-07-25] MEDS: MIDAZOLAM HCL 100 MG in IV NORMAL SALINE 100ML 100 ML IV PRN ×3 (00:40→16:01)
[2019-07-25] MEDS: DEXMEDETOMIDINE 400 MCG in IV NORMAL SALINE 100ML 96 ML IV PRN ×8 (02:00→23:31)
--- NOTE | 2019-07-25 05:06 | RAD ---
EXAM: CHEST ONE VIEW. HISTORY: Pleural effusions, intubated, respiratory failure. COMPARISON: 07/22/2019. FINDINGS: A frontal view of the chest is obtained. An endotracheal tube has its tip 4 cm above the shawanda. A nasogastric tube has its tip below the inferior margin of the view. A left subclavian central venous catheter has its tip in the superior cavoatrial junction. A right internal jugular hemodialysis catheter has its tip at the superior cavoatrial junction. A right arm PICC line has its tip in the proximal superior vena cava. There are moderate to large posteriorly layering pleural effusions bilaterally. These appear mildly increased. Focal atelectasis is noted along the right hilum. There is no pneumothorax. The heart is not enlarged. IMPRESSION: 1. Increased moderate to large bilateral posteriorly layering pleural effusions with associated atelectasis. Electronically signed by: Enzo Perera MD (07/25/2019 5:03 AM) [facility]
[2019-07-25] MEDS: INSULIN LISPRO 300 UNITS/3 ML VIAL. SQ SCH ×3 (06:18→19:10)
[2019-07-25 06:57] LABS: ALBUMIN 2.6 g/dL (3.4-5.0); CALCIUM 8.6 mg/dL (8.5-10.1); CREATININE 1.8 mg/dL (0.6-1.0); GFR 29.9; MAGNESIUM 1.8 mg/dL (1.8-2.4); PHOSPHORUS 3.9 mg/dL (2.6-4.7); POTASSIUM 4.2 mmol/L (3.5-5.1)
[2019-07-25] MEDS ORDERED: IV RINGERS,LACTATED 1000ML 1,000 ML IV SCH (07:00)
[2019-07-25] MEDS ORDERED: ONDANSETRON PF 4 MG/2 ML VIAL. IV PRN (07:00)
[2019-07-25] MEDS ORDERED: LIDOCAINE 1% PF 2 ML VIAL. ID PRN (07:00)
[2019-07-25] MEDS ORDERED: fentaNYL PF VIAL 100 MCG/2 ML VIAL IV PRN ×2 (07:00)
[2019-07-25] MEDS ORDERED: PROCHLORPERAZINE 10 MG/2 ML VIAL. IV PRN (07:00)
--- NOTE | 2019-07-25 08:24 | PDOC ---
PROGRESS NOTES Chief Complaint Chief Complaint Late entry for 07/24/2019 Respiratory failure requiring mechanical ventilation Severe Acute gallstone pancreatitis (not a surgical candidate at this time) with necrosis Acute kidney failure now requiring dialysis Salpingitis Gallstones (Calculus of gallbladder with acute cholecystitis without o bstruction) HTN Leukocytosis Hypoxia Uterine fibroid Hypoxia with respiratory failure Intractable pain Intractable nausea Covid 19 negative. Acute on chronic anemia will have to follow up since there is suspicion for hemorrhagic fluid in pelvis Plan: continue supportive measures grim prognosis discussed with surgical services coordinator planning of trach for thursday if unable to extubate History of Present Illness History of Present Illness 07/24/2019 No acute events reported overnight, case discussed with nursing staff patient in no acute distress during my visit 07/23/2019 No acute events reported overnight, patient receiving dialysis today, case discussed with nursing staff patient in no acute distress during my visit 07/22/2019 No new changes remains critically ill, off CRRT, still planning for trach on Thursday unless we manage to wean over the weekend 07/21/2019 Continues to remain critically ill. The patient unable to be taken off ventilatory support as of yet., Discussed with pulmonary market research consultant. Planning all tracheostomy on Thursday if he is unable to be weaned off vent 07/20/2019 No acute events reported overnight, no fever or chills, remains critically stable, discussed with mother at bedside. [id number] Patient seen and examined in the ICU She is critically ill Mechanically ventilated Assist-control/25/450/30 with 8 of PEEP She is on cefepime daptomycin Flagyl and micafungin GEN for antibiotic coverage Also getting TPN and CRRT Sedated with Versed Getting IV albumin also She is tachycardic at 112 bpm Temp max 100.0 White blood count is down from 45,000 35,000 today Chart reviewed Discussed with RN [id number] Patient seen and examined in the ICU She remains very critically ill Going for a CT of the abdomen chest and pelvis Ventilated : On assist control 40% FiO2 Discussed with RN Chart reviewed [id number] Patient seen and examined in the ICU She is still on CRRT although we plan to change to hemodialysis soon Chart reviewed Discussed with RN Hemoglobin down to 6.9 (suspect CRRT related , Will let nephrology consider transfusion while on dialysis) [id number] Patient seen and examined in the ICU She is mechanically ventilated Before meals/25/450/30% Also on CRRT Very critically ill Chart reviewed Discussed with RN [id number] Patient seen and examined in the ICU She is now been transferred to the Covid 19 unit so we can rule out Covid and keep her in isolation Very critically ill Intubated and ventilated Assist control 40% Chart reviewed Discussed with RN Still on CRRT Getting a chest x-ray now Very concerned about her prognosis [id number] Patient seen and examined in the ICU She is extremely critically ill Remains mechanically ventilated with assist control/25/450/40% Also on continuous renal replacement therapy Chart reviewed Discussed with RN She has TPN hanging Also on pressors [id number] Patient seen and examined in the ICU She is still requiring CRRT On the vent with assist control but her FiO2 is down to 40% from yesterday Slightly better but still very critically ill Discussed with RN Chart reviewed [id number] Patient seen and examined in the ICU She remains extremely critically ill On IV fentanyl IV Versed IV Doxy On the vent Assist-control/25/450/70% She is critically ill Discussed with RN Chart reviewed Patient is currently on CRRT as well [id number] Patient seen and examined in the ICU She had to be intubated this morning On assist-control 25/450/100% with 10 of PEEP and only satting 87% She is extremely critically ill I'm not sure if she will survive Chart reviewed Discussed with RN Ms Diaz is a 48yo F w/ PMHx HTN, prediabetes who presents the emergency room complaints of abdominal pain. Patient described off and on 3 days. She states is constant, described as a squeezing sensation in a band-like distribution. + nausea, vomiting. She denies any fever or diarrhea. Patient denies any abdominal surgical procedures. She states is worse with movements, car ride. Pain initially was upper abdomen however now pretty much generalized. Last bowel movement was 07/03/2019. Nothing makes her pain better. Patient denies any shortness of breath. She does state the pain moves into her chest. Denies any headache or visual changes. Lipase 90990, AST 401, ALT 249, Bilirubin 1.4. CT abdomen confirms pancreatic inflammation, peripancreatic fluid and inflammatory changes around the pancreas consistent with pancreatitis. Cholelithiasis and 1.4cm uterine fibroid as well as possible left salpingitis. Admitted for further care GI, General surgery, ID, Pulm consulted. 07/04: Overnight per report no urine output. Added dilaudid for pain, PICC placed per IR. Renal US negative.Seen bedside in ICU, given 2L additional NSS and albumin infusion. Still hypotensive, started on levophed. Repeat CT abdomen with necrosis. Updated her fiancee 07/05: Sats are only 87% on nasal cannula oxygen. Dialysis catheter per nephrology 07/06: She is now on BiPAP appears more ill, now on dialysis 07/07: Seen on BiPAP. Her mother and another family member are present and seemed to be good support for her. Currently on dialysis. Appears critically ill 07/08: Overnight Tmax 101.7 , still on BiPAP FiO2 40%, still on low dose Levophed gtt, TPN initiated. On dialysis Overnight still febrile. Dialysis today. She wakes up and responds to pain. No CP. Vitals Vitals Vital Signs Date Time Temp Pulse Resp B/P (MAP) Pulse Ox O2 Delivery O2 Flow Rate FiO2 07/25/19 07:48 Mechanical Ventilator 07/25/19 07:39 100 07/25/19 07:00 97.7 77 18 104/65 (78) 97.7 Physical Exam Physical Exam GENERAL: Orally intubated/sedated - generalized anasarca HEENT: Pupils equal, ETT, OGT NECK: Supple LUNGS: Diminished aeration bases HEART: S1, S2, regular ABDOMEN: Distended, hypoactive BS, Rectal tube in place : Lind EXTREMITIES: Generalized edema, no cyanosis - some mottling, [place] boots & SCDs bilaterally DERMATOLOGIC: Warm and dry. No generalized rash. CENTRAL NERVOUS SYSTEM: Sedated RIJ Temp HDC, RUE-PICC & LIJ General: Other (sedated ) Heart: Other (increased rate) Lungs: Other (dimished in BLL) Abdomen: Soft, Other (distended ) Extremities: No edema, Other (SOME CLUBBING ) Skin: Other (mottling noted to extremities ) Labs LABS Laboratory Tests Test 07/24/19 11:44 07/24/19 18:09 07/24/19 23:55 07/25/19 05:26 Glucose (Fingerstick) 162 mg/dL (70-99) 133 mg/dL (70-99) 158 mg/dL (70-99) 157 mg/dL (70-99) Test 07/25/19 05:45 Hemoglobin 7.8 g/dL (12.0-15.5) Sodium Level 139 mmol/L (136-145) Potassium Level 4.2 mmol/L (3.5-5.1) Chloride Level 103 mmol/L (98-107) Carbon Dioxide Level 25 mmol/L (21-32) Anion Gap 11 (6-14) Blood Urea Nitrogen 48 mg/dL (7-20) Creatinine 1.8 mg/dL (0.6-1.0) Estimated GFR (Cockcroft-Gault) 29.9 Glucose Level 167 mg/dL (70-99) Calcium Level 8.6 mg/dL (8.5-10.1) Phosphorus Level 3.9 mg/dL (2.6-4.7) Magnesium Level 1.8 mg/dL (1.8-2.4) Albumin 2.6 g/dL (3.4-5.0) Assessment and Plan Assessmemt and Plan Problems Medical Problems: (1) Acute pancreatitis Status: Acute (2) Cholelithiasis Status: Acute Comment Review of Relevant I have reviewed the following items kolby (where applicable) has been applied. Labs Laboratory Tests Test 07/23/19 14:54 07/23/19 17:50 07/23/19 18:38 07/23/19 23:52 Urine Collection Type Unknown Urine Color Red Urine Clarity Cloudy Urine pH 5.0 (<5.0-8.0) Urine Specific [place] 1.025 (1.000-1.030) Urine Protein 100 mg/dL (NEG-TRACE) Urine Glucose (UA) Negative mg/dL (NEG) Urine Ketones (Stick) Trace mg/dL (NEG) Urine Blood Large (NEG) Urine Nitrite Positive (NEG) Urine Bilirubin Small (NEG) Urine Urobilinogen Dipstick 0.2 mg/dL (0.2 mg/dL) Urine Leukocyte Esterase Small (NEG) Urine RBC Rare /HPF (0-2) Urine WBC 1-4 /HPF (0-4) Urine Squamous Epithelial Cells Occ /LPF Urine Amorphous Sediment Present /HPF Urine Bacteria 0 /HPF (0-FEW) O2 Saturation 98 % (92-99) Arterial Blood pH 7.48 (7.35-7.45) Arterial Blood pCO2 at Patient Temp 30 mmHg (35-46) Arterial Blood pO2 at Patient Temp 122 mmHg (75-108) Arterial Blood HCO3 22 mmol/L (21-28) Arterial Blood Base Excess -1 mmol/L (-3-3) FiO2 50 Glucose (Fingerstick) 171 mg/dL (70-99) 173 mg/dL (70-99) Test 07/24/19 06:00 07/24/19 06:17 07/24/19 08:00 07/24/19 11:44 White Blood Count 9.6 x10^3/uL (4.0-11.0) Red Blood Count 2.42 x10^6/uL (3.50-5.40) Hemoglobin 7.8 g/dL (12.0-15.5) Hematocrit 23.8 % (36.0-47.0) Mean Corpuscular Volume 98 fL (79-100) Mean Corpuscular Hemoglobin 32 pg (25-35) Mean Corpuscular Hemoglobin Concent 33 g/dL (31-37) Red Cell Distribution Width 19.5 % (11.5-14.5) Platelet Count 198 x10^3/uL (140-400) Neutrophils (%) (Auto) 76 % (31-73) Lymphocytes (%) (Auto) 10 % (24-48) Monocytes (%) (Auto) 7 % (0-9) Eosinophils (%) (Auto) 7 % (0-3) Basophils (%) (Auto) 1 % (0-3) Neutrophils # (Auto) 7.3 x10^3/uL (1.8-7.7) Lymphocytes # (Auto) 0.9 x10^3/uL (1.0-4.8) Monocytes # (Auto) 0.7 x10^3/uL (0.0-1.1) Eosinophils # (Auto) 0.6 x10^3/uL (0.0-0.7) Basophils # (Auto) 0.0 x10^3/uL (0.0-0.2) Sodium Level 139 mmol/L (136-145) Potassium Level 4.0 mmol/L (3.5-5.1) Chloride Level 104 mmol/L (98-107) Carbon Dioxide Level 26 mmol/L (21-32) Anion Gap 9 (6-14) Blood Urea Nitrogen 54 mg/dL (7-20) Creatinine 1.9 mg/dL (0.6-1.0) Estimated GFR (Cockcroft-Gault) 28.1 BUN/Creatinine Ratio 28 (6-20) Glucose Level 164 mg/dL (70-99) Calcium Level 8.3 mg/dL (8.5-10.1) Total Bilirubin 1.0 mg/dL (0.2-1.0) Aspartate Amino Transf (AST/SGOT) 47 U/L (15-37) Alanine Aminotransferase (ALT/SGPT) 20 U/L (14-59) Alkaline Phosphatase 81 U/L (46-116) Total Protein 5.0 g/dL (6.4-8.2) Albumin 2.3 g/dL (3.4-5.0) Albumin/Globulin Ratio 0.9 (1.0-1.7) Glucose (Fingerstick) 167 mg/dL (70-99) 162 mg/dL (70-99) O2 Saturation 97 % (92-99) Arterial Blood pH 7.42 (7.35-7.45) Arterial Blood pCO2 at Patient Temp 35 mmHg (35-46) Arterial Blood pO2 at Patient Temp 104 mmHg (75-108) Arterial Blood HCO3 22 mmol/L (21-28) Arterial Blood Base Excess -2 mmol/L (-3-3) FiO2 45 Test 07/24/19 18:09 07/24/19 23:55 07/25/19 05:26 07/25/19 05:45 Glucose (Fingerstick) 133 mg/dL (70-99) 158 mg/dL (70-99) 157 mg/dL (70-99) Hemoglobin 7.8 g/dL (12.0-15.5) Sodium Level 139 mmol/L (136-145) Potassium Level 4.2 mmol/L (3.5-5.1) Chloride Level 103 mmol/L (98-107) Carbon Dioxide Level 25 mmol/L (21-32) Anion Gap 11 (6-14) Blood Urea Nitrogen 48 mg/dL (7-20) Creatinine 1.8 mg/dL (0.6-1.0) Estimated GFR (Cockcroft-Gault) 29.9 Glucose Level 167 mg/dL (70-99) Calcium Level 8.6 mg/dL (8.5-10.1) Phosphorus Level 3.9 mg/dL (2.6-4.7) Magnesium Level 1.8 mg/dL (1.8-2.4) Albumin 2.6 g/dL (3.4-5.0) Laboratory Tests Test 07/24/19 11:44 07/24/19 18:09 07/24/19 23:55 07/25/19 05:26 Glucose (Fingerstick) 162 mg/dL (70-99) 133 mg/dL (70-99) 158 mg/dL (70-99) 157 mg/dL (70-99) Test 07/25/19 05:45 Hemoglobin 7.8 g/dL (12.0-15.5) Sodium Level 139 mmol/L (136-145) Potassium Level 4.2 mmol/L (3.5-5.1) Chloride Level 103 mmol/L (98-107) Carbon Dioxide Level 25 mmol/L (21-32) Anion Gap 11 (6-14) Blood Urea Nitrogen 48 mg/dL (7-20) Creatinine 1.8 mg/dL (0.6-1.0) Estimated GFR (Cockcroft-Gault) 29.9 Glucose Level 167 mg/dL (70-99) Calcium Level 8.6 mg/dL (8.5-10.1) Phosphorus Level 3.9 mg/dL (2.6-4.7) Magnesium Level 1.8 mg/dL (1.8-2.4) Albumin 2.6 g/dL (3.4-5.0) Microbiology 07/23/19 Blood Culture - Preliminary, Resulted NO GROWTH AFTER 1 DAY Medications Current Medications Sodium Chloride 1,000 ml @ 1,000 mls/hr Q1H IV Last administered on 07/04/19at 03:00; Start 07/04/19 at 03:00; Stop 07/04/19 at 03:59; Status DC Ondansetron HCl (Zofran) 4 mg 1X ONCE IVP Last administered on 07/04/19at 03:27; Start 07/04/19 at 03:00; Stop 07/04/19 at 03:01; Status DC Morphine Sulfate (Morphine Sulfate) 4 mg 1X ONCE IV ; Start 07/04/19 at 03:00; Stop 07/04/19 at 03:01; Status Cancel Ketorolac Tromethamine (Toradol 30mg Vial) 30 mg 1X ONCE IV Last administered on 07/04/19at 02:54; Start 07/04/19 at 03:00; Stop 07/04/19 at 03:01; Status DC Fentanyl Citrate (Fentanyl 2ml Vial) 25 mcg 1X ONCE IVP Last administered on 07/04/19at 03:23; Start 07/04/19 at 03:30; Stop 07/04/19 at 03:31; Status DC Fentanyl Citrate (Fentanyl 2ml Vial) 100 mcg STK-MED ONCE .ROUTE ; Start 07/04/19 at 03:18; Stop 07/04/19 at 03:18; Status DC Iohexol (Omnipaque 350 Mg/ml) 90 ml 1X ONCE IV Last administered on 07/04/19at 03:25; Start 07/04/19 at 03:30; Stop 07/04/19 at 03:31; Status DC Info (CONTRAST GIVEN -- Rx MONITORING) 1 each PRN DAILY PRN MC SEE COMMENTS; Start 07/04/19 at 03:30; Stop 07/06/19 at 03:29; Status DC Hydromorphone HCl (Dilaudid) 0.5 mg 1X ONCE IV Last administered on 07/04/19at 03:55; Start 07/04/19 at 04:30; Stop 07/04/19 at 04:32; Status DC Ondansetron HCl (Zofran) 4 mg PRN Q8HRS PRN IV NAUSEA/VOMITING 1ST CHOICE; Start 07/04/19 at 05:00; Stop 07/04/19 at 09:27; Status DC Morphine Sulfate (Morphine Sulfate) 2 mg PRN Q2HR PRN IV SEVERE PAIN 7-10 Last administered on 07/05/19at 12:26; Start 07/04/19 at 05:00; Stop 07/05/19 at 14:15; Status DC Sodium Chloride 1,000 ml @ 125 mls/hr Q8H IV Last administered on 07/04/19at 20:56; Start 07/04/19 at 05:00; Stop 07/05/19 at 04:59; Status DC Hydromorphone HCl (Dilaudid) 0.5 mg PRN Q3HRS PRN IV SEVERE PAIN 7-10 Last admi nistered on 07/05/19at 10:06; Start 07/04/19 at 05:00; Stop 07/05/19 at 12:01; Status DC Piperacillin Sod/ Tazobactam Sod 4.5 gm/Sodium Chloride 100 ml @ 200 mls/hr 1X ONCE IV Last administered on 07/04/19at 05:44; Start 07/04/19 at 06:00; Stop 07/04/19 at 06:29; Status DC Ondansetron HCl (Zofran) 4 mg PRN Q4HRS PRN IV NAUSEA/VOMITING 1ST CHOICE Last administered on 07/09/19at 16:15; Start 07/04/19 at 09:30 Insulin Human Lispro (HumaLOG) 0-9 UNITS Q6HRS SQ Last administered on 07/25/19at 06:18; Start 07/04/19 at 09:30 Dextrose (Dextrose 50%-Water Syringe) 12.5 gm PRN Q15MIN PRN IV SEE COMMENTS; Start 07/04/19 at 09:30 Pantoprazole Sodium (PROTONIX VIAL for IV PUSH) 40 mg DAILYAC IVP Last administered on 07/24/19at 07:32; Start 07/04/19 at 11:30 Prochlorperazine Edisylate (Compazine) 10 mg PRN Q6HRS PRN IV NAUSEA/VOMITING, 2nd CHOICE Last administered on 07/05/19at 00:42; Start 07/04/19 at 17:45 Atenolol (Tenormin) 100 mg DAILY PO ; Start 07/05/19 at 09:00; Stop 07/04/19 at 20:08; Status DC Metoprolol Tartrate (Lopressor Vial) 2.5 mg Q6HRS IVP Last administered on 07/05/19at 05:51; Start 07/04/19 at 20:15; Stop 07/05/19 at 10:02; Status DC Metoprolol Tartrate (Lopressor Vial) 5 mg Q6HRS IVP Last administered on 07/14/19at 00:12; Start 07/05/19 at 10:15; Stop 07/16/19 at 08:48; Status DC Hydromorphone HCl (Dilaudid) 1 mg PRN Q3HRS PRN IV SEVERE PAIN 7-10 Last administered on 07/11/19at 05:13; Start 07/05/19 at 12:00; Stop 07/19/19 at 00:25; Status DC Lidocaine HCl (Buffered Lidocaine 1%) 3 ml STK-MED ONCE .ROUTE ; Start 07/05/19 at 12:55; Stop 07/05/19 at 12:56; Status DC Albumin Human 500 ml @ 125 mls/hr 1X ONCE IV Last administered on 07/05/19at 14:33; Start 07/05/19 at 14:30; Stop 07/05/19 at 18:32; Status DC Norepinephrine Bitartrate 8 mg/ Dextrose 258 ml @ 17.299 mls/ hr CONT PRN IV PER PROTOCOL Last administered on 07/24/19at 21:18; Start 07/05/19 at 15:30 Sodium Chloride 1,000 ml @ 125 mls/hr Q8H IV Last administered on 07/05/19at 21:04; Start 07/05/19 at 16:00; Stop 07/06/19 at 02:42; Status DC Albumin Human 500 ml @ 125 mls/hr PRN BID PRN IV After every 2L NSS & BP < 90mm Last administered on 07/20/19at 14:21; Start 07/05/19 at 16:00 Iohexol (Omnipaque 300 Mg/ml) 60 ml 1X ONCE IV Last administered on 07/05/19at 17:20; Start 07/05/19 at 17:00; Stop 07/05/19 at 17:01; Status DC Info (CONTRAST GIVEN -- Rx MONITORING) 1 each PRN DAILY PRN MC SEE COMMENTS; Start 07/05/19 at 17:00; Stop 07/07/19 at 16:59; Status DC Meropenem 1 gm/ Sodium Chloride 100 ml @ 200 mls/hr Q8HRS IV Last administered on 07/06/19at 05:45; Start 07/05/19 at 20:00; Stop 07/06/19 at 08:48; Status DC Furosemide (Lasix) 40 mg 1X ONCE IVP Last administered on 07/05/19at 22:12; Start 07/05/19 at 22:30; Stop 07/05/19 at 22:31; Status DC Calcium Chloride 1000 mg/Sodium Chloride 110 ml @ 220 mls/hr 1X ONCE IV Last administered on 07/05/19at 22:11; Start 07/05/19 at 22:30; Stop 07/05/19 at 22:59; Status DC Albuterol Sulfate (Ventolin Neb Soln) 2.5 mg 1X ONCE NEB Last administered on 07/06/19at 00:56; Start 07/05/19 at 22:30; Stop 07/05/19 at 22:31; Status DC Insulin Human Regular (HumuLIN R VIAL) 5 unit 1X ONCE IV Last administered on 07/05/19at 22:14; Start 07/05/19 at 22:30; Stop 07/05/19 at 22:31; Status DC Magnesium Sulfate 50 ml @ 25 mls/hr 1X ONCE IV Last administered on 07/06/19at 02:57; Start 07/06/19 at 03:00; Stop 07/06/19 at 04:59; Status DC Calcium Gluconate 1000 mg/Sodium Chloride 110 ml @ 220 mls/hr 1X ONCE IV Last administered on 07/06/19at 02:46; Start 07/06/19 at 03:00; Stop 07/06/19 at 03:29; Status DC Sodium Chloride 1,000 ml @ 200 mls/hr Q5H IV Last administered on 07/06/19at 02:46; Start 07/06/19 at 03:00; Stop 07/06/19 at 10:21; Status DC Calcium Gluconate 1000 mg/Sodium Chloride 110 ml @ 220 mls/hr 1X ONCE IV Last administered on 07/06/19at 03:21; Start 07/06/19 at 03:30; Stop 07/06/19 at 03:59; Status DC Sodium Bicarbonate 50 meq/Sodium Chloride 1,050 ml @ 75 mls/hr Q14H IV Last administered on 07/10/19at 21:10; Start 07/06/19 at 07:30; Stop 07/11/19 at 10:28; Status DC Calcium Gluconate 2000 mg/Sodium Chloride 120 ml @ 220 mls/hr 1X ONCE IV Last administered on 07/06/19at 09:05; Start 07/06/19 at 07:30; Stop 07/06/19 at 08:02; Status DC Lidocaine HCl (Xylocaine-Mpf 1% 2ml Vial) 2 ml STK-MED ONCE .ROUTE ; Start 07/06/19 at 08:47; Stop 07/06/19 at 08:47; Status DC Meropenem 500 mg/ Sodium Chloride 50 ml @ 100 mls/hr Q12HR IV Last administered on 07/11/19at 21:01; Start 07/06/19 at 18:00; Stop 07/12/19 at 07:58; Status DC Lidocaine HCl (Buffered Lidocaine 1%) 3 ml STK-MED ONCE .ROUTE ; Start 07/06/19 at 09:46; Stop 07/06/19 at 09:46; Status DC Lidocaine HCl (Buffered Lidocaine 1%) 6 ml 1X ONCE INJ Last administered on 07/06/19at 10:26; Start 07/06/19 at 10:15; Stop 07/06/19 at 10:16; Status DC Info (Tpn Per Pharmacy) 1 each PRN DAILY PRN MC SEE COMMENTS Last administered on 07/24/19at 10:46; Start 07/06/19 at 12:00 Sodium Chloride 1,000 ml @ 1,000 mls/hr Q1H PRN IV hypotension; Start 07/06/19 at 12:07; Stop 07/06/19 at 18:06; Status DC Diphenhydramine HCl (Benadryl) 25 mg 1X PRN PRN IV ITCHING; Start 07/06/19 at 12:15; Stop 07/07/19 at 12:14; Status DC Diphenhydramine HCl (Benadryl) 25 mg 1X PRN PRN IV ITCHING; Start 07/06/19 at 12:15; Stop 07/07/19 at 12:14; Status DC Sodium Chloride 1,000 ml @ 400 mls/hr Q2H30M PRN IV PATENCY; Start 07/06/19 at 12:07; Stop 07/07/19 at 00:06; Status DC Info (PHARMACY MONITORING -- do not chart) 1 each PRN DAILY PRN MC SEE COM MENTS; Start 07/06/19 at 12:15; Stop 07/08/19 at 08:13; Status DC Sodium Chloride 90 meq/Calcium Gluconate 10 meq/ Multivitamins 10 ml/Chromium/ Copper/Manganese/ Seleni/Zn 1 ml/ Total Parenteral Nutrition/Amino Acids/Dextrose/ Fat Emulsion Intravenous 55.005 ml @ 2.292 mls/hr TPN CONT IV ; Start 07/06/19 at 22:00; Stop 07/06/19 at 12:33; Status DC Info (Tpn Per Pharmacy) 1 each PRN DAILY PRN MC SEE COMMENTS; Start 07/06/19 at 12:30; Status UNV Sodium Chloride 90 meq/Calcium Gluconate 10 meq/ Multivitamins 10 ml/Chromium/ Copper/Manganese/ Seleni/Zn 0.5 ml/ Total Parenteral Nutrition/Amino Acids/Dextrose/ Fat Emulsion Intravenous 1,512 ml @ 63 mls/hr TPN CONT IV Last administered on 07/06/19at 22:06; Start 07/06/19 at 22:00; Stop 07/07/19 at 21:59; Status DC Calcium Carbonate/ Glycine (Tums) 500 mg PRN AFTMEALHC PRN PO INDIGESTION; Start 07/06/19 at 17:45 Calcium Gluconate (Calcium Gluconate) 2,000 mg 1X ONCE IVP Last administered on 07/07/19at 02:19; Start 07/07/19 at 02:15; Stop 07/07/19 at 02:16; Status DC Calcium Chloride 3000 mg/Sodium Chloride 1,030 ml @ 50 mls/hr [id number] IV Last administered on 07/09/19at 02:17; Start 07/07/19 at 08:00; Stop 07/09/19 at 15:23; Status DC Lorazepam (Ativan Inj) 1 mg PRN Q4HRS PRN IVP ANXIETY / AGITATION Last administered on 07/11/19at 00:34; Start 07/07/19 at 09:00 Sodium Chloride 1,000 ml @ 1,000 mls/hr Q1H PRN IV hypotension; Start 07/07/19 at 08:56; Stop 07/07/19 at 14:55; Status DC Albumin Human 200 ml @ 200 mls/hr 1X PRN PRN IV Hypotension; Start 07/07/19 at 09:00; Stop 07/07/19 at 14:59; Status DC Diphenhydramine HCl (Benadryl) 25 mg 1X PRN PRN IV ITCHING; Start 07/07/19 at 09:00; Stop 07/08/19 at 08:59; Status DC Diphenhydramine HCl (Benadryl) 25 mg 1X PRN PRN IV ITCHING; Start 07/07/19 at 09:00; Stop 07/08/19 at 08:59; Status DC Sodium Chloride 1,000 ml @ 400 mls/hr Q2H30M PRN IV PATENCY; Start 07/07/19 at 08:56; Stop 07/07/19 at 20:55; Status DC Info (PHARMACY MONITORING -- do not chart) 1 each PRN DAILY PRN MC SEE COMMENTS; Start 07/07/19 at 09:00; Status UNV Info (PHARMACY MONITORING -- do not chart) 1 each PRN DAILY PRN MC SEE COMMENTS; Start 07/07/19 at 09:00; Stop 07/08/19 at 08:13; Status DC Digoxin (Lanoxin) 500 mcg 1X ONCE IV Last administered on 07/07/19at 10:04; Start 07/07/19 at 10:00; Stop 07/07/19 at 10:01; Status DC Digoxin (Lanoxin) 125 mcg 1X ONCE IV Last administered on 07/07/19at 17:10; Start 07/07/19 at 18:00; Stop 07/07/19 at 18:01; Status DC Magnesium Sulfate 100 ml @ 25 mls/hr 1X ONCE IV Last administered on at 12:48; Start 07/07/19 at 13:00; Stop 07/07/19 at 16:59; Status DC Sodium Chloride 90 meq/Magnesium Sulfate 10 meq/ Calcium Gluconate 20 meq/ Multivitamins 10 ml/Chromium/ Copper/Manganese/ Seleni/Zn 0.5 ml/ Total Parenteral Nutrition/Amino Acids/Dextrose/ Fat Emulsion Intravenous 1,512 ml @ 63 mls/hr TPN CONT IV Last administered on 07/07/19at 22:25; Start 07/07/19 at 22:00; Stop 07/08/19 at 21:59; Status DC Sodium Chloride 1,000 ml @ 1,000 mls/hr Q1H PRN IV hypotension; Start 07/08/19 at 08:05; Stop 07/08/19 at 14:04; Status DC Albumin Human 200 ml @ 200 mls/hr 1X ONCE IV Last administered on 07/08/19at 08:57; Start 07/08/19 at 08:15; Stop 07/08/19 at 09:14; Status DC Diphenhydramine HCl (Benadryl) 25 mg 1X PRN PRN IV ITCHING; Start 07/08/19 at 08:15; Stop 07/09/19 at 08:14; Status DC Diphenhydramine HCl (Benadryl) 25 mg 1X PRN PRN IV ITCHING; Start 07/08/19 at 0 8:15; Stop 07/09/19 at 08:14; Status DC Sodium Chloride 1,000 ml @ 400 mls/hr Q2H30M PRN IV PATENCY; Start 07/08/19 at 08:05; Stop 07/08/19 at 20:04; Status DC Info (PHARMACY MONITORING -- do not chart) 1 each PRN DAILY PRN MC SEE COMMENTS; Start 07/08/19 at 08:15; Stop 07/12/19 at 07:57; Status DC Sodium Chloride 90 meq/Potassium Chloride 15 meq/ Potassium Phosphate 10 mmol/ Magnesium Sulfate 10 meq/Calcium Gluconate 20 meq/ Multivitamins 10 ml/Chromium/ Copper/Manganese/ Seleni/Zn 0.5 ml/ Total Parenteral Nutrition/Amino Acids/Dextrose/ Fat Emulsion Intravenous 1,512 ml @ 63 mls/hr TPN CONT IV Last administered on 07/08/19at 21:01; Start 07/08/19 at 22:00; Stop 07/09/19 at 21:59; Status DC Potassium Chloride/Water 100 ml @ 100 mls/hr 1X ONCE IV Last administered on 07/08/19at 14:09; Start 07/08/19 at 14:00; Stop 07/08/19 at 14:59; Status DC Benzocaine (Hurricaine One) 1 spray 1X ONCE MM Last administered on 07/08/19at 16:38; Start 07/08/19 at 14:30; Stop 07/08/19 at 14:31; Status DC Lidocaine HCl (Glydo (Lidocaine) Jelly) 1 ramu 1X ONCE MM Last administered on 07/08/19at 16:38; Start 07/08/19 at 14:30; Stop 07/08/19 at 14:31; Status DC Linezolid/Dextrose 300 ml @ 300 mls/hr Q12HR IV Last administered on 07/14/19at 21:04; Start 07/08/19 at 20:00; Stop 07/15/19 at 07:50; Status DC Acetaminophen (Tylenol) 650 mg PRN Q6HRS PRN PO MILD PAIN / TEMP; Start 07/09/19 at 03:30; Stop 07/09/19 at 03:36; Status DC Acetaminophen (Tylenol) 650 mg PRN Q6HRS PRN PEG MILD PAIN / TEMP Last administered on 07/14/19at 07:35; Start 07/09/19 at 03:36 Sodium Chloride 1,000 ml @ 1,000 mls/hr Q1H PRN IV hypotension; Start 07/09/19 at 07:50; Stop 07/09/19 at 13:49; Status DC Albumin Human 200 ml @ 200 mls/hr 1X PRN PRN IV Hypotension; Start 07/09/19 at 08:00; Stop 07/09/19 at 13:59; Status DC Sodium Chloride (Normal Saline Flush) 10 ml 1X PRN PRN IV AP catheter pack; Start 07/09/19 at 08:00; Stop 07/10/19 at 07:59; Status DC Sodium Chloride (Normal Saline Flush) 10 ml 1X PRN PRN IV DIRECTOR OF CARDIOLOGY catheter pack; Start 07/09/19 at 08:00; Stop 07/10/19 at 07:59; Status DC Sodium Chloride 1,000 ml @ 400 mls/hr Q2H30M PRN IV PATENCY; Start 07/09/19 at 07:50; Stop 07/09/19 at 19:49; Status DC Info (PHARMACY MONITORING -- do not chart) 1 each PRN DAILY PRN MC SEE COMMENTS; Start 07/09/19 at 08:00; Status UNV Info (PHARMACY MONITORING -- do not chart) 1 each PRN DAILY PRN MC SEE COMMENTS; Start 07/09/19 at 08:00; Stop 07/11/19 at 08:25; Status DC Sodium Chloride 90 meq/Potassium Chloride 15 meq/ Potassium Phosphate 10 mmol/ Magnesium Sulfate 10 meq/Calcium Gluconate 20 meq/ Multivitamins 10 ml/Chromium/ Copper/Manganese/ Seleni/Zn 0.5 ml/ Total Parenteral Nutrition/Amino Acids/Dextrose/ Fat Emulsion Intravenous 1,512 ml @ 63 mls/hr TPN CONT IV Last administered on 07/09/19at 20:57; Start 07/09/19 at 22:00; Stop 07/10/19 at 21:59; Status DC Sodium Chloride 90 meq/Potassium Chloride 15 meq/ Potassium Phosphate 15 mmol/ Magnesium Sulfate 10 meq/Calcium Gluconate 20 meq/ Multivitamins 10 ml/Chromium/ Copper/Manganese/ Seleni/Zn 0.5 ml/ Total Parenteral Nutrition/Amino Acids/Dextrose/ Fat Emulsion Intravenous 1,512 ml @ 63 mls/hr TPN CONT IV ; Start 07/10/19 at 22:00; Stop 07/10/19 at 14:16; Status DC Sodium Chloride 90 meq/Potassium Chloride 15 meq/ Potassium Phosphate 15 mmol/ Magnesium Sulfate 10 meq/Calcium Gluconate 20 meq/ Multivitamins 10 ml/Chromium/ Copper/Manganese/ Seleni/Zn 0.5 ml/ Total Parenteral Nutrition/Amino Acids/Dextrose/ Fat Emulsion Intravenous 1,200 ml @ 50 mls/hr TPN CONT IV ; Start 07/10/19 at 22:00; Stop 07/10/19 at 14:17; Status DC Sodium Chloride 90 meq/Potassium Chloride 15 meq/ Potassium Phosphate 10 mmol/ Magnesium Sulfate 10 meq/Calcium Gluconate 20 meq/ Multivitamins 10 ml/Chromium/ Copper/Manganese/ Seleni/Zn 0.5 ml/ Total Parenteral Nutrition/Amino Acids/Dextrose/ Fat Emulsion Intravenous 1,200 ml @ 50 mls/hr TPN CONT IV Last administered on 07/10/19at 23:29; Start 07/10/19 at 22:00; Stop 07/11/19 at 21:59; Status DC Sodium Chloride 1,000 ml @ 1,000 mls/hr Q1H PRN IV hypotension; Start 07/11/19 at 07:28; Stop 07/11/19 at 13:27; Status DC Albumin Human 200 ml @ 200 mls/hr 1X ONCE IV Last administered on 07/11/19at 08:51; Start 07/11/19 at 07:30; Stop 07/11/19 at 08:29; Status DC Diphenhydramine HCl (Benadryl) 25 mg 1X PRN PRN IV ITCHING; Start 07/11/19 at 07:30; Stop 07/12/19 at 07:29; Status DC Diphenhydramine HCl (Benadryl) 25 mg 1X PRN PRN IV ITCHING; Start 07/11/19 at 07:30; Stop 07/12/19 at 07:29; Status DC Sodium Chloride 1,000 ml @ 400 mls/hr Q2H30M PRN IV PATENCY; Start 07/11/19 at 07:28; Stop 07/11/19 at 19:27; Status DC Info (PHARMACY MONITORING -- do not chart) 1 each PRN DAILY PRN MC SEE COMMENTS ; Start 07/11/19 at 07:30; Stop 07/22/19 at 13:01; Status DC Metronidazole 100 ml @ 100 mls/hr Q6HRS IV Last administered on 07/25/19at 06:16; Start 07/11/19 at 08:30 Micafungin Sodium 100 mg/Dextrose 100 ml @ 100 mls/hr Q24H IV Last administered on 07/24/19at 08:51; Start 07/11/19 at 09:00 Propofol 0 ml @ As Directed STK-MED ONCE IV ; Start 07/11/19 at 07:53; Stop 07/11/19 at 07:53; Status DC Etomidate (Amidate) 20 mg STK-MED ONCE IV ; Start 07/11/19 at 07:53; Stop 07/11/19 at 07:54; Status DC Midazolam HCl (Versed) 5 mg STK-MED ONCE .ROUTE ; Start 07/11/19 at 07:57; Stop 07/11/19 at 07:57; Status DC Fentanyl Citrate 30 ml @ 0 mls/hr CONT PRN IV SEE PROTOCOL Last administered on 07/25/19at 05:40; Start 07/11/19 at 08:15 Artificial Tears (Artificial Tears) 1 drop PRN Q1HR PRN OU DRY EYE; Start 07/11/19 at 08:15 Midazolam HCl 50 mg/Sodium Chloride 50 ml @ 0 mls/hr CONT PRN IV SEE PROTOCOL Last administered on 07/14/19at 22:39; Start 07/11/19 at 08:15; Stop 07/16/19 at 15:59; Status DC Etomidate (Amidate) 8 mg 1X ONCE IV Last administered on 07/11/19at 08:33; Start 07/11/19 at 08:30; Stop 07/11/19 at 08:31; Status DC Succinylcholine Chloride (Anectine) 120 mg 1X ONCE IV Last administered on 07/11/19at 08:34; Start 07/11/19 at 08:30; Stop 07/11/19 at 08:31; Status DC Midazolam HCl (Versed) 5 mg 1X ONCE IV ; Start 07/11/19 at 08:30; Stop 07/11/19 at 08:31; Status DC Potassium Chloride 15 meq/ Bicarbonate Dialysis Soln w/ out KCl 5,007.5 ml @ 1,000 mls/ hr Q5H1M IV Last administered on 07/12/19at 11:11; Start 07/11/19 at 12:00; Stop 07/12/19 at 11:15; Status DC Potassium Chloride 15 meq/ Bicarbonate Dialysis Soln w/ out KCl 5,007.5 ml @ 1,000 mls/ hr Q5H1M IV Last administered on 07/12/19at 11:12; Start 07/11/19 at 12:00; Stop 07/12/19 at 11:17; Status DC Potassium Chloride 15 meq/ Bicarbonate Dialysis Soln w/ out KCl 5,007.5 ml @ 1,000 mls/ hr Q5H1M IV Last administered on 07/12/19at 11:11; Start 07/11/19 at 12:00; Stop 07/12/19 at 11:19; Status DC Sodium Chloride 90 meq/Potassium Chloride 15 meq/ Potassium Phosphate 10 mmol/ Magnesium Sulfate 10 meq/Calcium Gluconate 20 meq/ Multivitamins 10 ml/Chromium/ Copper/Manganese/ Seleni/Zn 0.5 ml/ Total Parenteral Nutrition/Amino Acids/Dextrose/ Fat Emulsion Intravenous 1,400 ml @ 58.333 mls/ hr TPN CONT IV Last administered on 07/11/19at 21:42; Start 07/11/19 at 22:00; Stop 07/12/19 at 21:59; Status DC Heparin Sodium (Porcine) (Heparin Sodium) 5,000 unit Q8HRS SQ Last administered on 07/16/19at 05:55; Start 07/11/19 at 15:00; Stop 07/16/19 at 13:28; Status DC Meropenem 500 mg/ Sodium Chloride 50 ml @ 100 mls/hr Q6HRS IV Last administered on 07/13/19at 06:00; Start 07/12/19 at 09:00; Stop 07/13/19 at 07:29; Status DC Potassium Phosphate 20 mmol/ Sodium Chloride 106.6667 ml @ 51.667 m... 1X ONCE IV Last administered on 07/12/19at 11:22; Start 07/12/19 at 10:15; Stop 07/12/19 at 12:18; Status DC Acetaminophen (Tylenol Supp) 650 mg PRN Q6HRS PRN [place] MILD PAIN / TEMP Last administered on 07/12/19at 10:37; Start 07/12/19 at 10:30 Potassium Chloride/Water 100 ml @ 100 mls/hr Q1H IV Last administered on 07/12/19at 12:12; Start 07/12/19 at 11:00; Stop 07/12/19 at 12:59; Status DC Potassium Chloride 20 meq/ Bicarbonate Dialysis Soln w/ out KCl 5,010 ml @ 1,000 mls/hr Q5H1M IV Last administered on 07/13/19at 08:48; Start 07/12/19 at 12:00; Stop 07/13/19 at 13:03; Status DC Potassium Chloride 20 meq/ Bicarbonate Dialysis Soln w/ out KCl 5,010 ml @ 1,000 mls/hr Q5H1M IV Last administered on 07/17/19at 14:52; Start 07/12/19 at 11:30; Stop 07/17/19 at 19:59; Status DC Potassium Chloride 20 meq/ Bicarbonate Dialysis Soln w/ out KCl 5,010 ml @ 1,000 mls/hr Q5H1M IV Last administered on 07/17/19at 14:53; Start 07/12/19 at 11:30; Stop 07/17/19 at 19:59; Status DC Sodium Chloride 90 meq/Potassium Chloride 15 meq/ Potassium Phosphate 15 mmol/ Magnesium Sulfate 10 meq/Calcium Gluconate 15 meq/ Multivitamins 10 ml/Chromium/ Copper/Manganese/ Seleni/Zn 0.5 ml/ Total Parenteral Nutrition/Amino Acids/Dextrose/ Fat Emulsion Intravenous 1,400 ml @ 58.333 mls/ hr TPN CONT IV Last administered on 07/12/19at 22:17; Start 07/12/19 at 22:00; Stop 07/13/19 at 21:59; Status DC Cefepime HCl (Maxipime) 2 gm Q12HR IVP Last administered on 07/24/19at 21:18; Start 07/13/19 at 09:00 Daptomycin 500 mg/ Sodium Chloride 50 ml @ 100 mls/hr Q48H IV Last administered on 07/23/19at 15:01; Start 07/13/19 at 08:30 Lidocaine HCl (Buffered Lidocaine 1%) 3 ml 1X ONCE INJ Last administered on 07/13/19at 10:27; Start 07/13/19 at 10:30; Stop 07/13/19 at 10:31; Status DC Potassium Phosphate 20 mmol/ Sodium Chloride 106.6667 ml @ 51.667 m... 1X ONCE IV Last administered on 07/13/19at 12:51; Start 07/13/19 at 13:00; Stop 07/13/19 at 15:03; Status DC Sodium Chloride 90 meq/Potassium Chloride 15 meq/ Potassium Phosphate 18 mmol/ Magnesium Sulfate 8 meq/Calcium Gluconate 15 meq/ Multivitamins 10 ml/Chromium/ Copper/Manganese/ Seleni/Zn 0.5 ml/ Total Parenteral Nutrition/Amino Acids /Dextrose/ Fat Emulsion Intravenous 1,400 ml @ 58.333 mls/ hr TPN CONT IV Last administered on 07/13/19at 22:16; Start 07/13/19 at 22:00; Stop 07/14/19 at 21:59; Status DC Potassium Chloride 20 meq/ Bicarbonate Dialysis Soln w/ out KCl 5,010 ml @ 1,000 mls/hr Q5H1M IV Last administered on 07/17/19at 14:54; Start 07/13/19 at 16:00; Stop 07/17/19 at 19:59; Status DC Multi-Ingred Cream/Lotion/Oil/ Oint (Artificial Tears Eye Ointment) 1 ramu PRN Q1HR PRN OU DRY EYE Last administered on 07/22/19at 11:05; Start 07/13/19 at 17:30 Sodium Chloride 90 meq/Potassium Chloride 15 meq/ Potassium Phosphate 18 mmol/ Magnesium Sulfate 8 meq/Calcium Gluconate 15 meq/ Multivitamins 10 ml/Chromium/ Copper/Manganese/ Seleni/Zn 0.5 ml/ Total Parenteral Nutrition/Amino Acids/De xtrose/ Fat Emulsion Intravenous 1,400 ml @ 58.333 mls/ hr TPN CONT IV Last administered on 07/14/19at 22:00; Start 07/14/19 at 22:00; Stop 07/15/19 at 21:59; Status DC Albumin Human 500 ml @ 125 mls/hr 1X ONCE IV ; Start 07/14/19 at 14:15; Stop 07/14/19 at 18:14; Status DC Sodium Chloride 90 meq/Potassium Chloride 15 meq/ Potassium Phosphate 18 mmol/ Magnesium Sulfate 8 meq/Calcium Gluconate 15 meq/ Multivitamins 10 ml/Chromium/ Copper/Manganese/ Seleni/Zn 0.5 ml/ Insulin Human Regular 10 unit/ Total Parenteral Nutrition/Amino Acids/Dextrose/ Fat Emulsion Intravenous 1,400 ml @ 58.333 mls/ hr TPN CONT IV Last administered on 07/15/19at 21:43; Start 07/15/19 at 22:00; Stop 07/16/19 at 21:59; Status DC Lidocaine HCl (Buffered Lidocaine 1%) 3 ml STK-MED ONCE .ROUTE ; Start 07/13/19 at 10:00; Stop 07/15/19 at 13:57; Status DC Midazolam HCl 100 mg/Sodium Chloride 100 ml @ 7 mls/hr CONT PRN IV SEE PROTOCOL Last administered on 07/25/19at 00:40; Start 07/16/19 at 16:00 Sodium Chloride 90 meq/Potassium Chloride 15 meq/ Potassium Phosphate 18 mmol/ Magnesium Sulfate 8 meq/Calcium Gluconate 15 meq/ Multivitamins 10 ml/Chromium/ Copper/Manganese/ Seleni/Zn 0.5 ml/ Insulin Human Regular 15 unit/ Total Parenteral Nutrition/Amino Acids/Dextrose/ Fat Emulsion Intravenous 1,400 ml @ 58.333 mls/ hr TPN CONT IV Last administered on 07/16/19at 20:34; Start 07/16/19 at 22:00; Stop 07/17/19 at 21:59; Status DC Info (Icu Electrolyte Protocol) 1 ea CONT PRN PRN MC PER PROTOCOL; Start 07/17/19 at 13:15 Sodium Chloride 90 meq/Potassium Chloride 15 meq/ Potassium Phosphate 18 mmol/ Magnesium Sulfate 8 meq/Calcium Gluconate 15 meq/ Multivitamins 10 ml/Chromium/ Copper/Manganese/ Seleni/Zn 0.5 ml/ Insulin Human Regular 15 unit/ Total Parenteral Nutrition/Amino Acids/Dextrose/ Fat Emulsion Intravenous 1,400 ml @ 58.333 mls/ hr TPN CONT IV Last administered on 07/17/19at 22:05; Start 07/17/19 at 22:00; Stop 07/18/19 at 21:59; Status DC Potassium Chloride 15 meq/ Bicarbonate Dialysis Soln w/ out KCl 5,007.5 ml @ 1,000 mls/ hr Q5H1M IV Last administered on 07/20/19at 18:14; Start 07/17/19 at 20:00; Stop 07/21/19 at 13:08; Status DC Potassium Chloride 15 meq/ Bicarbonate Dialysis Soln w/ out KCl 5,007.5 ml @ 1,000 mls/ hr Q5H1M IV Last administered on 07/20/19at 18:14; Start 07/17/19 at 20:00; Stop 07/21/19 at 13:08; Status DC Potassium Chloride 15 meq/ Bicarbonate Dialysis Soln w/ out KCl 5,007.5 ml @ 1 ,000 mls/ hr Q5H1M IV Last administered on 07/20/19at 18:14; Start 07/17/19 at 20:00; Stop 07/21/19 at 13:08; Status DC Iohexol (Omnipaque 240 Mg/ml) 30 ml 1X ONCE PO Last administered on 07/18/19at 11:30; Start 07/18/19 at 11:30; Stop 07/18/19 at 11:33; Status DC Info (CONTRAST GIVEN -- Rx MONITORING) 1 each PRN DAILY PRN MC SEE COMMENTS; Start 07/18/19 at 11:45; Stop 07/20/19 at 11:44; Status DC Sodium Chloride 90 meq/Potassium Chloride 15 meq/ Potassium Phosphate 18 mmol/ Magnesium Sulfate 8 meq/Calcium Gluconate 15 meq/ Multivitamins 10 ml/Chromium/ Copper/Manganese/ Seleni/Zn 0.5 ml/ Insulin Human Regular 15 unit/ Total Paren teral Nutrition/Amino Acids/Dextrose/ Fat Emulsion Intravenous 1,400 ml @ 58.333 mls/ hr TPN CONT IV Last administered on 07/18/19at 21:47; Start 07/18/19 at 22:00; Stop 07/19/19 at 21:59; Status DC Sodium Chloride 90 meq/Potassium Chloride 15 meq/ Potassium Phosphate 18 mmol/ Magnesium Sulfate 8 meq/Calcium Gluconate 15 meq/ Multivitamins 10 ml/Chromium/ Copper/Manganese/ Seleni/Zn 0.5 ml/ Insulin Human Regular 20 unit/ Total Parenteral Nutrition/Amino Acids/Dextrose/ Fat Emulsion Intravenous 1,400 ml @ 58.333 mls/ hr TPN CONT IV Last administered on 07/19/19at 21:36; Start 07/19/19 at 22:00; Stop 07/20/19 at 21:59; Status DC Alteplase, Recombinant (Cathflo For Central Catheter Clearance) 1 mg 1X ONCE INT CAT Last administered on 07/19/19at 20:03; Start 07/19/19 at 19:30; Stop 07/19/19 at 19:46; Status DC Alteplase, Recombinant (Cathflo For Central Catheter Clearance) 1 mg 1X ONCE INT CAT Last administered on 07/19/19at 22:05; Start 07/19/19 at 22:00; Stop 07/19/19 at 22:01; Status DC Sodium Chloride 90 meq/Potassium Chloride 15 meq/ Potassium Phosphate 18 mmol/ Magnesium Sulfate 8 meq/Calcium Gluconate 15 meq/ Multivitamins 10 ml/Chromium/ Copper/Manganese/ Seleni/Zn 0.5 ml/ Insulin Human Regular 20 unit/ Total Parenteral Nutrition/Amino Acids/Dextrose/ Fat Emulsion Intravenous 1,400 ml @ 58.333 mls/ hr TPN CONT IV Last administered on 07/20/19at 21:30; Start 07/20/19 at 22:00; Stop 07/21/19 at 21:59; Status DC Dexmedetomidine HCl 400 mcg/ Sodium Chloride 100 ml @ 0 mls/hr CONT PRN IV ANXIETY / AGITATION Last administered on 07/25/19at 05:39; Start 07/21/19 at 08:15 Sodium Chloride 500 ml @ 500 mls/hr 1X PRN PRN IV ELEVATED BP, SEE COMMENTS; Start 07/21/19 at 08:15 Atropine Sulfate (ATROPINE 0.5mg SYRINGE) 0.5 mg PRN Q5MIN PRN IV SEE COMMENTS; Start 07/21/19 at 08:15 Furosemide (Lasix) 20 mg 1X ONCE IVP Last administered on 07/21/19at 08:19; Start 07/21/19 at 08:15; Stop 07/21/19 at 08:16; Status DC Lidocaine HCl (Buffered Lidocaine 1%) 3 ml STK-MED ONCE .ROUTE ; Start 07/21/19 at 08:39; Stop 07/21/19 at 08:39; Status DC Lidocaine HCl (Buffered Lidocaine 1%) 6 ml 1X ONCE INJ Last administered on 07/21/19at 09:05; Start 07/21/19 at 09:00; Stop 07/21/19 at 09:06; Status DC Sodium Chloride 90 meq/Potassium Chloride 15 meq/ Potassium Phosphate 18 mmol/ Magnesium Sulfate 8 meq/Calcium Gluconate 15 meq/ Multivitamins 10 ml/Chromium/ Copper/Manganese/ Seleni/Zn 0.5 ml/ Insulin Human Regular 20 unit/ Total Parenteral Nutrition/Amino Acids/Dextrose/ Fat Emulsion Intravenous 1,400 ml @ 58.333 mls/ hr TPN CONT IV Last administered on 07/21/19at 22:45; Start 07/21/19 at 22:00; Stop 07/22/19 at 21:59; Status DC Sodium Chloride 1,000 ml @ 1,000 mls/hr Q1H PRN IV hypotension; Start 07/22/19 at 07:30; Stop 07/22/19 at 13:29; Status DC Albumin Human 200 ml @ 200 mls/hr 1X PRN PRN IV Hypotension Last administered on 07/22/19at 09:36; Start 07/22/19 at 07:30; Stop 07/22/19 at 13:29; Status DC Sodium Chloride (Normal Saline Flush) 10 ml 1X PRN PRN IV AP catheter pack; Start 07/22/19 at 07:30; Stop 07/22/19 at 21:29; Status DC Sodium Chloride (Normal Saline Flush) 10 ml 1X PRN PRN IV DIRECTOR OF CARDIOLOGY catheter pack; Start 07/22/19 at 07:30; Stop 07/23/19 at 07:29; Status DC Sodium Chloride 1,000 ml @ 400 mls/hr Q2H30M PRN IV PATENCY; Start 07/22/19 at 07:30; Stop 07/22/19 at 19:29; Status DC Info (PHARMACY MONITORING -- do not chart) 1 each PRN DAILY PRN MC SEE COMMENTS; Start 07/22/19 at 07:30; Stop 07/22/19 at 13:02; Status DC Info (PHARMACY MONITORING -- do not chart) 1 each PRN DAILY PRN MC SEE COMMENTS; Start 07/22/19 at 07:30; Stop 07/24/19 at 12:45; Status DC Sodium Chloride 90 meq/Potassium Chloride 15 meq/ Potassium Phosphate 10 mmol/ Magnesium Sulfate 8 meq/Calcium Gluconate 15 meq/ Multivitamins 10 ml/Chromium/ Copper/Manganese/ Seleni/Zn 0.5 ml/ Insulin Human Regular 25 unit/ Total Paren teral Nutrition/Amino Acids/Dextrose/ Fat Emulsion Intravenous 1,400 ml @ 58.333 mls/ hr TPN CONT IV Last administered on 07/22/19at 22:19; Start 07/22/19 at 22:00; Stop 07/23/19 at 21:59; Status DC Heparin Sodium (Porcine) (Heparin Sodium) 5,000 unit Q12HR SQ Last administered on 07/24/19at 21:21; Start 07/22/19 at 21:00 Ondansetron HCl (Zofran) 4 mg PRN Q6HRS PRN IV NAUSEA/VOMITING; Start 07/25/19 at 07:00; Stop 07/26/19 at 06:59 Fentanyl Citrate (Fentanyl 2ml Vial) 25 mcg PRN Q5MIN PRN IV MILD PAIN 1-3; S tart 07/25/19 at 07:00; Stop 07/26/19 at 06:59 Fentanyl Citrate (Fentanyl 2ml Vial) 50 mcg PRN Q5MIN PRN IV MODERATE TO SEVERE PAIN; Start 07/25/19 at 07:00; Stop 07/26/19 at 06:59 Ringer's Solution 1,000 ml @ 30 mls/hr Q24H IV ; Start 07/25/19 at 07:00; Stop 07/25/19 at 18:59 Lidocaine HCl (Xylocaine-Mpf 1% 2ml Vial) 2 ml PRN 1X PRN ID PRIOR TO IV START; Start 07/25/19 at 07:00; Stop 07/26/19 at 06:59 Prochlorperazine Edisylate (Compazine) 5 mg PACU PRN PRN IV NAUSEA, MRX1; Start 07/25/19 at 07:00; Stop 07/26/19 at 06:59 Sodium Chloride 1,000 ml @ 1,000 mls/hr Q1H PRN IV hypotension; Start 07/23/19 at 09:10; Stop 07/23/19 at 15:09; Status DC Albumin Human 200 ml @ 200 mls/hr 1X PRN PRN IV Hypotension Last administered on 07/23/19at 10:10; Start 07/23/19 at 09:15; Stop 07/23/19 at 15:14; Status DC Sodium Chloride 1,000 ml @ 400 mls/hr Q2H30M PRN IV PATENCY; Start 07/23/19 at 09:10; Stop 07/23/19 at 21:09; Status DC Info (PHARMACY MONITORING -- do not chart) 1 each PRN DAILY PRN MC SEE COMMENTS; Start 07/23/19 at 09:15; Stop 07/24/19 at 12:45; Status DC Info (PHARMACY MONITORING -- do not chart) 1 each PRN DAILY PRN MC SEE COMMENTS; Start 07/23/19 at 09:15; Stop 07/24/19 at 12:45; Status DC Sodium Chloride 90 meq/Potassium Chloride 15 meq/ Potassium Phosphate 10 mmol/ Magnesium Sulfate 8 meq/Calcium Gluconate 15 meq/ Multivitamins 10 ml/Chromium/ Copper/Manganese/ Seleni/Zn 0.5 ml/ Insulin Human Regular 25 unit/ Total Parenteral Nutrition/Amino Acids/Dextrose/ Fat Emulsion Intravenous 1,400 ml @ 58.333 mls/ hr TPN CONT IV Last administered on 07/23/19at 22:10; Start 07/23/19 at 22:00; Stop 07/24/19 at 21:59; Status DC Magnesium Sulfate 50 ml @ 25 mls/hr PRN DAILY PRN IV for Mag < 1.7 on am labs; Start 07/24/19 at 09:15 Sodium Chloride 90 meq/Potassium Chloride 15 meq/ Potassium Phosphate 10 mmol/ Magnesium Sulfate 8 meq/Calcium Gluconate 15 meq/ Multivitamins 10 ml/Chromium/ Copper/Manganese/ Seleni/Zn 0.5 ml/ Insulin Human Regular 25 unit/ Total Parenteral Nutrition/Amino Acids/Dextrose/ Fat Emulsion Intravenous 1,400 ml @ 58.333 mls/ hr TPN CONT IV Last administered on 07/24/19at 21:20; Start 07/24/19 at 22:00; Stop 07/25/19 at 21:59 Sodium Chloride 1,000 ml @ 1,000 mls/hr Q1H PRN IV hypotension; Start 07/24/19 at 12:23; Stop 07/24/19 at 18:22; Status DC Albumin Human 200 ml @ 200 mls/hr 1X ONCE IV Last administered on 07/24/19at 13:34; Start 07/24/19 at 12:30; Stop 07/24/19 at 13:29; Status DC Diphenhydramine HCl (Benadryl) 25 mg 1X PRN PRN IV ITCHING; Start 07/24/19 at 12:30; Stop 07/25/19 at 12:29 Diphenhydramine HCl (Benadryl) 25 mg 1X PRN PRN IV ITCHING; Start 07/24/19 at 12:30; Stop 07/25/19 at 12:29 Info (PHARMACY MONITORING -- do not chart) 1 each PRN DAILY PRN MC SEE COMMENTS; Start 07/24/19 at 12:30 Active Scripts Active Reported Bisoprolol Fumarate 5 Mg Tablet 10 Mg PO DAILY Vitals/I & O Vital Sign - Last 24 Hours 07/24/19 07/24/19 07/24/19 07/24/19 09:00 10:00 11:00 11:35 Pulse 80 80 80 Resp 25 17 18 B/P (MAP) 103/51 (68) 93/57 (69) 95/57 (70) Pulse Ox 99 99 100 100 O2 Delivery Ventilator Ventilator Ventilator Ventilator 07/24/19 07/24/19 07/24/19 07/24/19 12:00 12:00 13:56 14:33 Temp 99.4 99.4 Pulse 81 Resp 17 25 B/P (MAP) 103/55 (71) Pulse Ox 100 100 100 O2 Delivery Mechanical Ventilator Ventilator Ventilator Ventilator 07/24/19 07/24/19 07/24/19 07/24/19 15:25 18:00 18:10 19:00 Temp 98.4 98.4 Pulse 85 84 Resp 23 18 B/P (MAP) 141/72 (95) 155/97 (116) Pulse Ox 100 99 100 97 O2 Delivery Ventilator Ventilator Ventilator Ventilator 07/24/19 07/24/19 07/24/19 07/24/19 20:00 20:00 20:26 21:00 Temp 98.7 98.7 Pulse 82 86 Resp 18 18 B/P (MAP) 124/67 (86) Pulse Ox 98 100 98 O2 Delivery Ventilator Mechanical Ventilator Ventilator Ventilator 07/24/19 07/24/19 07/24/19 07/24/19 21:25 22:00 22:09 23:00 Pulse 87 85 Resp 17 18 24 18 B/P (MAP) 124/83 (97) Pulse Ox 100 100 98 99 O2 Delivery Ventilator Ventilator Ventilator Ventilator 07/24/19 07/25/19 07/25/19 07/25/19 23:27 00:00 00:00 01:00 Temp 99.2 99.2 Pulse 83 79 Resp 18 18 B/P (MAP) 111/71 (84) 95/61 (72) Pulse Ox 100 100 100 O2 Delivery Ventilator Mechanical Ventilator Ventilator Ventilator 07/25/19 07/25/19 07/25/19 07/25/19 02:00 02:02 03:00 04:00 Pulse 79 79 Resp 18 18 B/P (MAP) 111/64 (80) 91/58 (69) Pulse Ox 100 100 99 O2 Delivery Ventilator Ventilator Ventilator Mechanical Ventilator 07/25/19 07/25/19 07/25/19 07/25/19 04:00 04:45 05:00 05:40 Temp 98.4 98.4 Pulse 79 79 Resp 18 18 18 B/P (MAP) 88/54 (65) 96/53 (67) Pulse Ox 100 100 100 100 O2 Delivery Ventilator Ventilator Ventilator Ventilator 07/25/19 07/25/19 07/25/19 07/25/19 06:00 06:26 07:00 07:39 Temp 97.7 97.7 Pulse 78 77 Resp 18 18 18 B/P (MAP) 115/72 (86) 104/65 (78) Pulse Ox 98 99 100 100 O2 Delivery Ventilator Ventilator Ventilator Ventilator 07/25/19 07:48 O2 Delivery Mechanical Ventilator Intake and Output 07/24/19 07/24/19 07/25/19 15:00 23:00 07:00 Intake Total 90 ml 479 ml 1363.2 ml Output Total 100 ml 495 ml 92 ml Balance -10 ml -16 ml 1271.2 ml Hemodynamically unstable?: No Is patient in severe pain?: No Is NPO status required?: Yes NIELS MCGILL MD Jul 25, 2019 08:24
[2019-07-25 08:29] LABS: BASE EXCESS ABG -1 mmol/L (-3-3); HCO3 ABG 24 mmol/L (21-28); PCO2 ABG 37 mmHg (35-46); PO2 ABG 105 mmHg (75-108); SAT O2 ABG 97 % (92-99)
[2019-07-25] MEDS: PANTOPRAZOLE IV PUSH 40 MG VIAL. IVP SCH (08:34)
--- NOTE | 2019-07-25 08:34 | PDOC ---
PROGRESS NOTES Chief Complaint Chief Complaint Respiratory failure requiring mechanical ventilation Severe Acute gallstone pancreatitis (not a surgical candidate at this time) with necrosis Acute kidney failure now requiring dialysis Salpingitis Gallstones (Calculus of gallbladder with acute cholecystitis without obstruction) HTN Leukocytosis Hypoxia Uterine fibroid Hypoxia with respiratory failure Intractable pain Intractable nausea Covid 19 negative. Acute on chronic anemia will have to follow up since there is suspicion for hemorrhagic fluid in pelvis Plan: continue supportive measures grim prognosis discussed with search consultant planning for trach today History of Present Illness History of Present Illness 07/25/2019 Plans for trach int he am and dialysis in the afternoon, no acute events reported overnight. 07/24/2019 No acute events reported overnight, case discussed with nursing staff patient in no acute distress during my visit 07/23/2019 No acute events reported overnight, patient receiving dialysis today, case discussed with nursing staff patient in no acute distress during my visit 07/22/2019 No new changes remains critically ill, off CRRT, still planning for trach on Thursday unless we manage to wean over the weekend 07/21/2019 Continues to remain critically ill. The patient unable to be taken off ventilatory support as of yet., Discussed with pulmonary search consultant. Planning all tracheostomy on Thursday if he is unable to be weaned off vent 07/20/2019 No acute events reported overnight, no fever or chills, remains critically stable, discussed with mother at bedside. [id number] Patient seen and examined in the ICU She is critically ill Mechanically ventilated Assist-control/25/450/30 with 8 of PEEP She is on cefepime daptomycin Flagyl and micafungin GEN for antibiotic coverage Also getting TPN and CRRT Sedated with Versed Getting IV albumin also She is tachycardic at 112 bpm Temp max 100.0 White blood count is down from 45,000 35,000 today Chart reviewed Discussed with RN [id number] Patient seen and examined in the ICU She remains very critically ill Going for a CT of the abdomen chest and pelvis Ventilated : On assist control 40% FiO2 Discussed with RN Chart reviewed [id number] Patient seen and examined in the ICU She is still on CRRT although we plan to change to hemodialysis soon Chart reviewed Discussed with RN Hemoglobin down to 6.9 (suspect CRRT related , Will let nephrology consider transfusion while on dialysis) [id number] Patient seen and examined in the ICU She is mechanically ventilated Before meals/25/450/30% Also on CRRT Very critically ill Chart reviewed Discussed with RN [id number] Patient seen and examined in the ICU She is now been transferred to the Covid 19 unit so we can rule out Covid and keep her in isolation Very critically ill Intubated and ventilated Assist control 40% Chart reviewed Discussed with RN Still on CRRT Getting a chest x-ray now Very concerned about her prognosis [id number] Patient seen and examined in the ICU She is extremely critically ill Remains mechanically ventilated with assist control/25/450/40% Also on continuous renal replacement therapy Chart reviewed Discussed with RN She has TPN hanging Also on pressors [id number] Patient seen and examined in the ICU She is still requiring CRRT On the vent with assist control but her FiO2 is down to 40% from yesterday Slightly better but still very critically ill Discussed with RN Chart reviewed [id number] Patient seen and examined in the ICU She remains extremely critically ill On IV fentanyl IV Versed IV Doxy On the vent Assist-control/25/450/70% She is critically ill Discussed with RN Chart reviewed Patient is currently on CRRT as well [id number] Patient seen and examined in the ICU She had to be intubated this morning On assist-control 25/450/100% with 10 of PEEP and only satting 87% She is extremely critically ill I'm not sure if she will survive Chart reviewed Discussed with RN Ms Diaz is a 48yo F w/ PMHx HTN, prediabetes who presents the emergency room complaints of abdominal pain. Patient described off and on 3 days. She states is constant, described as a squeezing sensation in a band-like distribution. + nausea, vomiting. She denies any fever or diarrhea. Patient denies any abdominal surgical procedures. She states is worse with movements, car ride. Pain initially was upper abdomen however now pretty much generalized. Last bowel movement was 07/03/2019. Nothing makes her pain better. Patient denies any shortness of breath. She does state the pain moves into her chest. Denies any headache or visual changes. Lipase 22668, AST 401, ALT 249, Bilirubin 1.4. CT abdomen confirms pancreatic inflammation, peripancreatic fluid and inflammatory changes around the pancreas consistent with pancreatitis. Cholelithiasis and 1.4cm uterine fibroid as well as possible left salpingitis. Admitted for further care GI, General surgery, ID, Pulm consulted. 07/04: Overnight per report no urine output. Added dilaudid for pain, PICC placed per IR. Renal US negative.Seen bedside in ICU, given 2L additional NSS and albumin infusion. Still hypotensive, started on levophed. Repeat CT abdomen with necrosis. Updated her fiancee 07/05: Sats are only 87% on nasal cannula oxygen. Dialysis catheter per nep hrology 07/06: She is now on BiPAP appears more ill, now on dialysis 07/07: Seen on BiPAP. Her mother and another family member are present and seemed to be good support for her. Currently on dialysis. Appears critically ill 07/08: Overnight Tmax 101.7 , still on BiPAP FiO2 40%, still on low dose Levophed gtt, TPN initiated. On dialysis Overnight still febrile. Dialysis today. She wakes up and responds to pain. No CP. Vitals Vitals Vital Signs Date Time Temp Pulse Resp B/P (MAP) Pulse Ox O2 Delivery O2 Flow Rate FiO2 07/25/19 07:48 Mechanical Ventilator 07/25/19 07:39 100 07/25/19 07:00 97.7 77 18 104/65 (78) 97.7 Physical Exam Physical Exam GENERAL: Orally intubated/sedated - generalized anasarca HEENT: Pupils equal, ETT, OGT NECK: Supple LUNGS: Diminished aeration bases HEART: S1, S2, regular ABDOMEN: Distended, hypoactive BS, Rectal tube in place : Lind EXTREMITIES: Generalized edema, no cyanosis - some mottling, Rooke boots & SCDs bilaterally DERMATOLOGIC: Warm and dry. No generalized rash. CENTRAL NERVOUS SYSTEM: Sedated RIJ Temp HDC, RUE-PICC & LIJ General: Other (sedated ) Heart: Other (increased rate) Lungs: Other (dimished in BLL) Abdomen: Soft, Other (distended ) Extremities: No edema, Other (SOME CLUBBING ) Skin: Other (mottling noted to extremities ) Labs LABS Laboratory Tests Test 07/24/19 11:44 07/24/19 18:09 07/24/19 23:55 07/25/19 05:26 Glucose (Fingerstick) 162 mg/dL (70-99) 133 mg/dL (70-99) 158 mg/dL (70-99) 157 mg/dL (70-99) Test 07/25/19 05:45 Hemoglobin 7.8 g/dL (12.0-15.5) Sodium Level 139 mmol/L (136-145) Potassium Level 4.2 mmol/L (3.5-5.1) Chloride Level 103 mmol/L (98-107) Carbon Dioxide Level 25 mmol/L (21-32) Anion Gap 11 (6-14) Blood Urea Nitrogen 48 mg/dL (7-20) Creatinine 1.8 mg/dL (0.6-1.0) Estimated GFR (Cockcroft-Gault) 29.9 Glucose Level 167 mg/dL (70-99) Calcium Level 8.6 mg/dL (8.5-10.1) Phosphorus Level 3.9 mg/dL (2.6-4.7) Magnesium Level 1.8 mg/dL (1.8-2.4) Albumin 2.6 g/dL (3.4-5.0) Assessment and Plan Assessmemt and Plan Problems Medical Problems: (1) Acute pancreatitis Status: Acute (2) Cholelithiasis Status: Acute Comment Review of Relevant I have reviewed the following items kolby (where applicable) has been applied. Labs Laboratory Tests Test 07/23/19 14:54 07/23/19 17:50 07/23/19 18:38 07/23/19 23:52 Urine Collection Type Unknown Urine Color Red Urine Clarity Cloudy Urine pH 5.0 (<5.0-8.0) Urine Specific Latta 1.025 (1.000-1.030) Urine Protein 100 mg/dL (NEG-TRACE) Urine Glucose (UA) Negative mg/dL (NEG) Urine Ketones (Stick) Trace mg/dL (NEG) Urine Blood Large (NEG) Urine Nitrite Positive (NEG) Urine Bilirubin Small (NEG) Urine Urobilinogen Dipstick 0.2 mg/dL (0.2 mg/dL) Urine Leukocyte Esterase Small (NEG) Urine RBC Rare /HPF (0-2) Urine WBC 1-4 /HPF (0-4) Urine Squamous Epithelial Cells Occ /LPF Urine Amorphous Sediment Present /HPF Urine Bacteria 0 /HPF (0-FEW) O2 Saturation 98 % (92-99) Arterial Blood pH 7.48 (7.35-7.45) Arterial Blood pCO2 at Patient Temp 30 mmHg (35-46) Arterial Blood pO2 at Patient Temp 122 mmHg (75-108) Arterial Blood HCO3 22 mmol/L (21-28) Arterial Blood Base Excess -1 mmol/L (-3-3) FiO2 50 Glucose (Fingerstick) 171 mg/dL (70-99) 173 mg/dL (70-99) Test 07/24/19 06:00 07/24/19 06:17 07/24/19 08:00 07/24/19 11:44 White Blood Count 9.6 x10^3/uL (4.0-11.0) Red Blood Count 2.42 x10^6/uL (3.50-5.40) Hemoglobin 7.8 g/dL (12.0-15.5) Hematocrit 23.8 % (36.0-47.0) Mean Corpuscular Volume 98 fL (79-100) Mean Corpuscular Hemoglobin 32 pg (25-35) Mean Corpuscular Hemoglobin Concent 33 g/dL (31-37) Red Cell Distribution Width 19.5 % (11.5-14.5) Platelet Count 198 x10^3/uL (140-400) Neutrophils (%) (Auto) 76 % (31-73) Lymphocytes (%) (Auto) 10 % (24-48) Monocytes (%) (Auto) 7 % (0-9) Eosinophils (%) (Auto) 7 % (0-3) Basophils (%) (Auto) 1 % (0-3) Neutrophils # (Auto) 7.3 x10^3/uL (1.8-7.7) Lymphocytes # (Auto) 0.9 x10^3/uL (1.0-4.8) Monocytes # (Auto) 0.7 x10^3/uL (0.0-1.1) Eosinophils # (Auto) 0.6 x10^3/uL (0.0-0.7) Basophils # (Auto) 0.0 x10^3/uL (0.0-0.2) Sodium Level 139 mmol/L (136-145) Potassium Level 4.0 mmol/L (3.5-5.1) Chloride Level 104 mmol/L (98-107) Carbon Dioxide Level 26 mmol/L (21-32) Anion Gap 9 (6-14) Blood Urea Nitrogen 54 mg/dL (7-20) Creatinine 1.9 mg/dL (0.6-1.0) Estimated GFR (Cockcroft-Gault) 28.1 BUN/Creatinine Ratio 28 (6-20) Glucose Level 164 mg/dL (70-99) Calcium Level 8.3 mg/dL (8.5-10.1) Total Bilirubin 1.0 mg/dL (0.2-1.0) Aspartate Amino Transf (AST/SGOT) 47 U/L (15-37) Alanine Aminotransferase (ALT/SGPT) 20 U/L (14-59) Alkaline Phosphatase 81 U/L (46-116) Total Protein 5.0 g/dL (6.4-8.2) Albumin 2.3 g/dL (3.4-5.0) Albumin/Globulin Ratio 0.9 (1.0-1.7) Glucose (Fingerstick) 167 mg/dL (70-99) 162 mg/dL (70-99) O2 Saturation 97 % (92-99) Arterial Blood pH 7.42 (7.35-7.45) Arterial Blood pCO2 at Patient Temp 35 mmHg (35-46) Arterial Blood pO2 at Patient Temp 104 mmHg (75-108) Arterial Blood HCO3 22 mmol/L (21-28) Arterial Blood Base Excess -2 mmol/L (-3-3) FiO2 45 Test 07/24/19 18:09 07/24/19 23:55 07/25/19 05:26 07/25/19 05:45 Glucose (Fingerstick) 133 mg/dL (70-99) 158 mg/dL (70-99) 157 mg/dL (70-99) Hemoglobin 7.8 g/dL (12.0-15.5) Sodium Level 139 mmol/L (136-145) Potassium Level 4.2 mmol/L (3.5-5.1) Chloride Level 103 mmol/L (98-107) Carbon Dioxide Level 25 mmol/L (21-32) Anion Gap 11 (6-14) Blood Urea Nitrogen 48 mg/dL (7-20) Creatinine 1.8 mg/dL (0.6-1.0) Estimated GFR (Cockcroft-Gault) 29.9 Glucose Level 167 mg/dL (70-99) Calcium Level 8.6 mg/dL (8.5-10.1) Phosphorus Level 3.9 mg/dL (2.6-4.7) Magnesium Level 1.8 mg/dL (1.8-2.4) Albumin 2.6 g/dL (3.4-5.0) Laboratory Tests Test 07/24/19 11:44 07/24/19 18:09 07/24/19 23:55 07/25/19 05:26 Glucose (Fingerstick) 162 mg/dL (70-99) 133 mg/dL (70-99) 158 mg/dL (70-99) 157 mg/dL (70-99) Test 07/25/19 05:45 Hemoglobin 7.8 g/dL (12.0-15.5) Sodium Level 139 mmol/L (136-145) Potassium Level 4.2 mmol/L (3.5-5.1) Chloride Level 103 mmol/L (98-107) Carbon Dioxide Level 25 mmol/L (21-32) Anion Gap 11 (6-14) Blood Urea Nitrogen 48 mg/dL (7-20) Creatinine 1.8 mg/dL (0.6-1.0) Estimated GFR (Cockcroft-Gault) 29.9 Glucose Level 167 mg/dL (70-99) Calcium Level 8.6 mg/dL (8.5-10.1) Phosphorus Level 3.9 mg/dL (2.6-4.7) Magnesium Level 1.8 mg/dL (1.8-2.4) Albumin 2.6 g/dL (3.4-5.0) Microbiology 07/23/19 Blood Culture - Preliminary, Resulted NO GROWTH AFTER 1 DAY Medications Current Medications Sodium Chloride 1,000 ml @ 1,000 mls/hr Q1H IV Last administered on 07/04/19at 03:00; Start 07/04/19 at 03:00; Stop 07/04/19 at 03:59; Status DC Ondansetron HCl (Zofran) 4 mg 1X ONCE IVP Last administered on 07/04/19at 03:27; Start 07/04/19 at 03:00; Stop 07/04/19 at 03:01; Status DC Morphine Sulfate (Morphine Sulfate) 4 mg 1X ONCE IV ; Start 07/04/19 at 03:00; Stop 07/04/19 at 03:01; Status Cancel Ketorolac Tromethamine (Toradol 30mg Vial) 30 mg 1X ONCE IV Last administered on 07/04/19at 02:54; Start 07/04/19 at 03:00; Stop 07/04/19 at 03:01; Status DC Fentanyl Citrate (Fentanyl 2ml Vial) 25 mcg 1X ONCE IVP Last administered on 07/04/19at 03:23; Start 07/04/19 at 03:30; Stop 07/04/19 at 03:31; Status DC Fentanyl Citrate (Fentanyl 2ml Vial) 100 mcg STK-MED ONCE .ROUTE ; Start 07/04/19 at 03:18; Stop 07/04/19 at 03:18; Status DC Iohexol (Omnipaque 350 Mg/ml) 90 ml 1X ONCE IV Last administered on 07/04/19at 03:25; Start 07/04/19 at 03:30; Stop 07/04/19 at 03:31; Status DC Info (CONTRAST GIVEN -- Rx MONITORING) 1 each PRN DAILY PRN MC SEE COMMENTS; Start 07/04/19 at 03:30; Stop 07/06/19 at 03:29; Status DC Hydromorphone HCl (Dilaudid) 0.5 mg 1X ONCE IV Last administered on 07/04/19at 03:55; Start 07/04/19 at 04:30; Stop 07/04/19 at 04:32; Status DC Ondansetron HCl (Zofran) 4 mg PRN Q8HRS PRN IV NAUSEA/VOMITING 1ST CHOICE; Start 07/04/19 at 05:00; Stop 07/04/19 at 09:27; Status DC Morphine Sulfate (Morphine Sulfate) 2 mg PRN Q2HR PRN IV SEVERE PAIN 7-10 Last administered on 07/05/19at 12:26; Start 07/04/19 at 05:00; Stop 07/05/19 at 14:15; Status DC Sodium Chloride 1,000 ml @ 125 mls/hr Q8H IV Last administered on 07/04/19at 20:56; Start 07/04/19 at 05:00; Stop 07/05/19 at 04:59; Status DC Hydromorphone HCl (Dilaudid) 0.5 mg PRN Q3HRS PRN IV SEVERE PAIN 7-10 Last administered on 07/05/19at 10:06; Start 07/04/19 at 05:00; Stop 07/05/19 at 12:0 1; Status DC Piperacillin Sod/ Tazobactam Sod 4.5 gm/Sodium Chloride 100 ml @ 200 mls/hr 1X ONCE IV Last administered on 07/04/19at 05:44; Start 07/04/19 at 06:00; Stop 07/04/19 at 06:29; Status DC Ondansetron HCl (Zofran) 4 mg PRN Q4HRS PRN IV NAUSEA/VOMITING 1ST CHOICE Last administered on 07/09/19at 16:15; Start 07/04/19 at 09:30 Insulin Human Lispro (HumaLOG) 0-9 UNITS Q6HRS SQ Last administered on 07/25/19at 06:18; Start 07/04/19 at 09:30 Dextrose (Dextrose 50%-Water Syringe) 12.5 gm PRN Q15MIN PRN IV SEE COMMENTS; Start 07/04/19 at 09:30 Pantoprazole Sodium (PROTONIX VIAL for IV PUSH) 40 mg DAILYAC IVP Last administered on 07/24/19at 07:32; Start 07/04/19 at 11:30 Prochlorperazine Edisylate (Compazine) 10 mg PRN Q6HRS PRN IV NAUSEA/VOMITING, 2nd CHOICE Last administered on 07/05/19at 00:42; Start 07/04/19 at 17:45 Atenolol (Tenormin) 100 mg DAILY PO ; Start 07/05/19 at 09:00; Stop 07/04/19 at 20:08; Status DC Metoprolol Tartrate (Lopressor Vial) 2.5 mg Q6HRS IVP Last administered on 07/05/19at 05:51; Start 07/04/19 at 20:15; Stop 07/05/19 at 10:02; Status DC Metoprolol Tartrate (Lopressor Vial) 5 mg Q6HRS IVP Last administered on 07/14/19at 00:12; Start 07/05/19 at 10:15; Stop 07/16/19 at 08:48; Status DC Hydromorphone HCl (Dilaudid) 1 mg PRN Q3HRS PRN IV SEVERE PAIN 7-10 Last administered on 07/11/19at 05:13; Start 07/05/19 at 12:00; Stop 07/19/19 at 00:25; Status DC Lidocaine HCl (Buffered Lidocaine 1%) 3 ml STK-MED ONCE .ROUTE ; Start 07/05/19 at 12:55; Stop 07/05/19 at 12:56; Status DC Albumin Human 500 ml @ 125 mls/hr 1X ONCE IV Last administered on 07/05/19at 14:33; Start 07/05/19 at 14:30; Stop 07/05/19 at 18:32; Status DC Norepinephrine Bitartrate 8 mg/ Dextrose 258 ml @ 17.299 mls/ hr CONT PRN IV PER PROTOCOL Last administered on 07/24/19at 21:18; Start 07/05/19 at 15:30 Sodium Chloride 1,000 ml @ 125 mls/hr Q8H IV Last administered on 07/05/19at 21:04; Start 07/05/19 at 16:00; Stop 07/06/19 at 02:42; Status DC Albumin Human 500 ml @ 125 mls/hr PRN BID PRN IV After every 2L NSS & BP < 90mm Last administered on 07/20/19at 14:21; Start 07/05/19 at 16:00 Iohexol (Omnipaque 300 Mg/ml) 60 ml 1X ONCE IV Last administered on 07/05/19at 17:20; Start 07/05/19 at 17:00; Stop 07/05/19 at 17:01; Status DC Info (CONTRAST GIVEN -- Rx MONITORING) 1 each PRN DAILY PRN MC SEE COMMENTS; Start 07/05/19 at 17:00; Stop 07/07/19 at 16:59; Status DC Meropenem 1 gm/ Sodium Chloride 100 ml @ 200 mls/hr Q8HRS IV Last administered on 07/06/19at 05:45; Start 07/05/19 at 20:00; Stop 07/06/19 at 08:48; Status DC Furosemide (Lasix) 40 mg 1X ONCE IVP Last administered on 07/05/19at 22:12; Start 07/05/19 at 22:30; Stop 07/05/19 at 22:31; Status DC Calcium Chloride 1000 mg/Sodium Chloride 110 ml @ 220 mls/hr 1X ONCE IV Last administered on 07/05/19at 22:11; Start 07/05/19 at 22:30; Stop 07/05/19 at 22:59; Status DC Albuterol Sulfate (Ventolin Neb Soln) 2.5 mg 1X ONCE NEB Last administered on 07/06/19at 00:56; Start 07/05/19 at 22:30; Stop 07/05/19 at 22:31; Status DC Insulin Human Regular (HumuLIN R VIAL) 5 unit 1X ONCE IV Last administered on 07/05/19at 22:14; Start 07/05/19 at 22:30; Stop 07/05/19 at 22:31; Status DC Magnesium Sulfate 50 ml @ 25 mls/hr 1X ONCE IV Last administered on 07/06/19at 02:57; Start 07/06/19 at 03:00; Stop 07/06/19 at 04:59; Status DC Calcium Gluconate 1000 mg/Sodium Chloride 110 ml @ 220 mls/hr 1X ONCE IV Last administered on 07/06/19at 02:46; Start 07/06/19 at 03:00; Stop 07/06/19 at 03:29; Status DC Sodium Chloride 1,000 ml @ 200 mls/hr Q5H IV Last administered on 07/06/19at 02:46; Start 07/06/19 at 03:00; Stop 07/06/19 at 10:21; Status DC Calcium Gluconate 1000 mg/Sodium Chloride 110 ml @ 220 mls/hr 1X ONCE IV Last administered on 07/06/19at 03:21; Start 07/06/19 at 03:30; Stop 07/06/19 at 03:59; Status DC Sodium Bicarbonate 50 meq/Sodium Chloride 1,050 ml @ 75 mls/hr Q14H IV Last administered on 07/10/19at 21:10; Start 07/06/19 at 07:30; Stop 07/11/19 at 10:28; Status DC Calcium Gluconate 2000 mg/Sodium Chloride 120 ml @ 220 mls/hr 1X ONCE IV Last administered on 07/06/19at 09:05; Start 07/06/19 at 07:30; Stop 07/06/19 at 08:02; Status DC Lidocaine HCl (Xylocaine-Mpf 1% 2ml Vial) 2 ml STK-MED ONCE .ROUTE ; Start 07/06/19 at 08:47; Stop 07/06/19 at 08:47; Status DC Meropenem 500 mg/ Sodium Chloride 50 ml @ 100 mls/hr Q12HR IV Last administered on 07/11/19at 21:01; Start 07/06/19 at 18:00; Stop 07/12/19 at 07:58; Status DC Lidocaine HCl (Buffered Lidocaine 1%) 3 ml STK-MED ONCE .ROUTE ; Start 07/06/19 at 09:46; Stop 07/06/19 at 09:46; Status DC Lidocaine HCl (Buffered Lidocaine 1%) 6 ml 1X ONCE INJ Last administered on 07/06/19at 10:26; Start 07/06/19 at 10:15; Stop 07/06/19 at 10:16; Status DC Info (Tpn Per Pharmacy) 1 each PRN DAILY PRN MC SEE COMMENTS Last administered on 07/24/19at 10:46; Start 07/06/19 at 12:00 Sodium Chloride 1,000 ml @ 1,000 mls/hr Q1H PRN IV hypotension; Start 07/06/19 at 12:07; Stop 07/06/19 at 18:06; Status DC Diphenhydramine HCl (Benadryl) 25 mg 1X PRN PRN IV ITCHING; Start 07/06/19 at 12:15; Stop 07/07/19 at 12:14; Status DC Diphenhydramine HCl (Benadryl) 25 mg 1X PRN PRN IV ITCHING; Start 07/06/19 at 12:15; Stop 07/07/19 at 12:14; Status DC Sodium Chloride 1,000 ml @ 400 mls/hr Q2H30M PRN IV PATENCY; Start 07/06/19 at 12:07; Stop 07/07/19 at 00:06; Status DC Info (PHARMACY MONITORING -- do not chart) 1 each PRN DAILY PRN MC SEE COMMENTS; Start 07/06/19 at 12:15; Stop 07/08/19 at 08:13; Status DC Sodium Chloride 90 meq/Calcium Gluconate 10 meq/ Multivitamins 10 ml/Chromium/ Copper/Manganese/ Seleni/Zn 1 ml/ Total Parenteral Nutrition/Amino Acids/Dextrose/ Fat Emulsion Intravenous 55.005 ml @ 2.292 mls/hr TPN CONT IV ; Start 07/06/19 at 22:00; Stop 07/06/19 at 12:33; Status DC Info (Tpn Per Pharmacy) 1 each PRN DAILY PRN MC SEE COMMENTS; Start 07/06/19 at 12:30; Status UNV Sodium Chloride 90 meq/Calcium Gluconate 10 meq/ Multivitamins 10 ml/Chromium/ Copper/Manganese/ Seleni/Zn 0.5 ml/ Total Parenteral Nutrition/Amino Acids/Dextrose/ Fat Emulsion Intravenous 1,512 ml @ 63 mls/hr TPN CONT IV Last administered on 07/06/19at 22:06; Start 07/06/19 at 22:00; Stop 07/07/19 at 21:59; Status DC Calcium Carbonate/ Glycine (Tums) 500 mg PRN AFTMEALHC PRN PO INDIGESTION; Start 07/06/19 at 17:45 Calcium Gluconate (Calcium Gluconate) 2,000 mg 1X ONCE IVP Last administered on 07/07/19at 02:19; Start 07/07/19 at 02:15; Stop 07/07/19 at 02:16; Status DC Calcium Chloride 3000 mg/Sodium Chloride 1,030 ml @ 50 mls/hr [id number] IV Last administered on 07/09/19at 02:17; Start 07/07/19 at 08:00; Stop 07/09/19 at 15:23; Status DC Lorazepam (Ativan Inj) 1 mg PRN Q4HRS PRN IVP ANXIETY / AGITATION Last administered on 07/11/19at 00:34; Start 07/07/19 at 09:00 Sodium Chloride 1,000 ml @ 1,000 mls/hr Q1H PRN IV hypotension; Start 07/07/19 at 08:56; Stop 07/07/19 at 14:55; Status DC Albumin Human 200 ml @ 200 mls/hr 1X PRN PRN IV Hypotension; Start 07/07/19 at 09:00; Stop 07/07/19 at 14:59; Status DC Diphenhydramine HCl (Benadryl) 25 mg 1X PRN PRN IV ITCHING; Start 07/07/19 at 09:00; Stop 07/08/19 at 08:59; Status DC Diphenhydramine HCl (Benadryl) 25 mg 1X PRN PRN IV ITCHING; Start 07/07/19 at 09:00; Stop 07/08/19 at 08:59; Status DC Sodium Chloride 1,000 ml @ 400 mls/hr Q2H30M PRN IV PATENCY; Start 07/07/19 at 08:56; Stop 07/07/19 at 20:55; Status DC Info (PHARMACY MONITORING -- do not chart) 1 each PRN DAILY PRN MC SEE COMMENTS; Start 07/07/19 at 09:00; Status UNV Info (PHARMACY MONITORING -- do not chart) 1 each PRN DAILY PRN MC SEE COMMENTS; Start 07/07/19 at 09:00; Stop 07/08/19 at 08:13; Status DC Digoxin (Lanoxin) 500 mcg 1X ONCE IV Last administered on 07/07/19at 10:04; Start 07/07/19 at 10:00; Stop 07/07/19 at 10:01; Status DC Digoxin (Lanoxin) 125 mcg 1X ONCE IV Last administered on 07/07/19at 17:10; Start 07/07/19 at 18:00; Stop 07/07/19 at 18:01; Status DC Magnesium Sulfate 100 ml @ 25 mls/hr 1X ONCE IV Last administered on 07/07/19at 12:48; Start 07/07/19 at 13:00; Stop 07/07/19 at 16:59; Status DC Sodium Chloride 90 meq/Magnesium Sulfate 10 meq/ Calcium Gluconate 20 meq/ Multivitamins 10 ml/Chromium/ Copper/Manganese/ Seleni/Zn 0.5 ml/ Total Parenteral Nutrition/Amino Acids/Dextrose/ Fat Emulsion Intravenous 1,512 ml @ 63 mls/hr TPN CONT IV Last administered on 07/07/19at 22:25; Start 07/07/19 at 22:00; Stop 07/08/19 at 21:59; Status DC Sodium Chloride 1,000 ml @ 1,000 mls/hr Q1H PRN IV hypotension; Start 07/08/19 at 08:05; Stop 07/08/19 at 14:04; Status DC Albumin Human 200 ml @ 200 mls/hr 1X ONCE IV Last administered on 07/08/19at 08:57; Start 07/08/19 at 08:15; Stop 07/08/19 at 09:14; Status DC Diphenhydramine HCl (Benadryl) 25 mg 1X PRN PRN IV ITCHING; Start 07/08/19 at 08:15; Stop 07/09/19 at 08:14; Status DC Diphenhydramine HCl (Benadryl) 25 mg 1X PRN PRN IV ITCHING; Start 07/08/19 at 08:15; Stop 07/09/19 at 08:14; Status DC Sodium Chloride 1,000 ml @ 400 mls/hr Q2H30M PRN IV PATENCY; Start 07/08/19 at 08:05; Stop 07/08/19 at 20:04; Status DC Info (PHARMACY MONITORING -- do not chart) 1 each PRN DAILY PRN MC SEE COMMENTS; Start 07/08/19 at 08:15; Stop 07/12/19 at 07:57; Status DC Sodium Chloride 90 meq/Potassium Chloride 15 meq/ Potassium Phosphate 10 mmol/ Magnesium Sulfate 10 meq/Calcium Gluconate 20 meq/ Multivitamins 10 ml/Chromium/ Copper/Manganese/ Seleni/Zn 0.5 ml/ Total Parenteral Nutrition/Amino Acids/Dextrose/ Fat Emulsion Intravenous 1,512 ml @ 63 mls/hr TPN CONT IV Last administered on 07/08/19at 21:01; Start 07/08/19 at 22:00; Stop 07/09/19 at 21:59; Status DC Potassium Chloride/Water 100 ml @ 100 mls/hr 1X ONCE IV Last administered on 07/08/19at 14:09; Start 07/08/19 at 14:00; Stop 07/08/19 at 14:59; Status DC Benzocaine (Hurricaine One) 1 spray 1X ONCE MM Last administered on 07/08/19at 16:38; Start 07/08/19 at 14:30; Stop 07/08/19 at 14:31; Status DC Lidocaine HCl (Glydo (Lidocaine) Jelly) 1 ramu 1X ONCE MM Last administered on 07/08/19at 16:38; Start 07/08/19 at 14:30; Stop 07/08/19 at 14:31; Status DC Linezolid/Dextrose 300 ml @ 300 mls/hr Q12HR IV Last administered on 07/14/19at 21:04; Start 07/08/19 at 20:00; Stop 07/15/19 at 07:50; Status DC Acetaminophen (Tylenol) 650 mg PRN Q6HRS PRN PO MILD PAIN / TEMP; Start 07/09/19 at 03:30; Stop 07/09/19 at 03:36; Status DC Acetaminophen (Tylenol) 650 mg PRN Q6HRS PRN PEG MILD PAIN / TEMP Last administered on 07/14/19at 07:35; Start 07/09/19 at 03:36 Sodium Chloride 1,000 ml @ 1,000 mls/hr Q1H PRN IV hypotension; Start 07/09/19 at 07:50; Stop 07/09/19 at 13:49; Status DC Albumin Human 200 ml @ 200 mls/hr 1X PRN PRN IV Hypotension; Start 07/09/19 at 08:00; Stop 07/09/19 at 13:59; Status DC Sodium Chloride (Normal Saline Flush) 10 ml 1X PRN PRN IV AP catheter pack; Start 07/09/19 at 08:00; Stop 07/10/19 at 07:59; Status DC Sodium Chloride (Normal Saline Flush) 10 ml 1X PRN PRN IV CUSTOMS ENTRY WRITER catheter pack; Start 07/09/19 at 08:00; Stop 07/10/19 at 07:59; Status DC Sodium Chloride 1,000 ml @ 400 mls/hr Q2H30M PRN IV PATENCY; Start 07/09/19 at 07:50; Stop 07/09/19 at 19:49; Status DC Info (PHARMACY MONITORING -- do not chart) 1 each PRN DAILY PRN MC SEE COMMENTS; Start 07/09/19 at 08:00; Status UNV Info (PHARMACY MONITORING -- do not chart) 1 each PRN DAILY PRN MC SEE COMMENTS; Start 07/09/19 at 08:00; Stop 07/11/19 at 08:25; Status DC Sodium Chloride 90 meq/Potassium Chloride 15 meq/ Potassium Phosphate 10 mmol/ Magnesium Sulfate 10 meq/Calcium Gluconate 20 meq/ Multivitamins 10 ml/Chromium/ Copper/Manganese/ Seleni/Zn 0.5 ml/ Total Parenteral Nutrition/Amino Acids/Dextrose/ Fat Emulsion Intravenous 1,512 ml @ 63 mls/hr TPN CONT IV Last administered on 07/09/19at 20:57; Start 07/09/19 at 22:00; Stop 07/10/19 at 21:59; Status DC Sodium Chloride 90 meq/Potassium Chloride 15 meq/ Potassium Phosphate 15 mmol/ Magnesium Sulfate 10 meq/Calcium Gluconate 20 meq/ Multivitamins 10 ml/Chromium/ Copper/Manganese/ Seleni/Zn 0.5 ml/ Total Parenteral Nutrition/Amino Acids/Dextrose/ Fat Emulsion Intravenous 1,512 ml @ 63 mls/hr TPN CONT IV ; Start 07/10/19 at 22:00; Stop 07/10/19 at 14:16; Status DC Sodium Chloride 90 meq/Potassium Chloride 15 meq/ Potassium Phosphate 15 mmol/ Magnesium Sulfate 10 meq/Calcium Gluconate 20 meq/ Multivitamins 10 ml/Chromium/ Copper/Manganese/ Seleni/Zn 0.5 ml/ Total Parenteral Nutrition/Amino Acids/Dextrose/ Fat Emulsion Intravenous 1,200 ml @ 50 mls/hr TPN CONT IV ; Start 07/10/19 at 22:00; Stop 07/10/19 at 14:17; Status DC Sodium Chloride 90 meq/Potassium Chloride 15 meq/ Potassium Phosphate 10 mmol/ Magnesium Sulfate 10 meq/Calcium Gluconate 20 meq/ Multivitamins 10 ml/Chromium/ Copper/Manganese/ Seleni/Zn 0.5 ml/ Total Parenteral Nutrition/Amino Acids/Dextrose/ Fat Emulsion Intravenous 1,200 ml @ 50 mls/hr TPN CONT IV Last administered on 07/10/19at 23:29; Start 07/10/19 at 22:00; Stop 07/11/19 at 21:59; Status DC Sodium Chloride 1,000 ml @ 1,000 mls/hr Q1H PRN IV hypotension; Start 07/11/19 at 07:28; Stop 07/11/19 at 13:27; Status DC Albumin Human 200 ml @ 200 mls/hr 1X ONCE IV Last administered on 07/11/19at 08:51; Start 07/11/19 at 07:30; Stop 07/11/19 at 08:29; Status DC Diphenhydramine HCl (Benadryl) 25 mg 1X PRN PRN IV ITCHING; Start 07/11/19 at 07:30; Stop 07/12/19 at 07:29; Status DC Diphenhydramine HCl (Benadryl) 25 mg 1X PRN PRN IV ITCHING; Start 07/11/19 at 07:30; Stop 07/12/19 at 07:29; Status DC Sodium Chloride 1,000 ml @ 400 mls/hr Q2H30M PRN IV PATENCY; Start 07/11/19 at 07:28; Stop 07/11/19 at 19:27; Status DC Info (PHARMACY MONITORING -- do not chart) 1 each PRN DAILY PRN MC SEE COMMENTS; Start 07/11/19 at 07:30; Stop 07/22/19 at 13:01; Status DC Metronidazole 100 ml @ 100 mls/hr Q6HRS IV Last administered on 07/25/19at 06:16; Start 07/11/19 at 08:30 Micafungin Sodium 100 mg/Dextrose 100 ml @ 100 mls/hr Q24H IV Last administered on 07/24/19at 08:51; Start 07/11/19 at 09:00 Propofol 0 ml @ As Directed STK-MED ONCE IV ; Start 07/11/19 at 07:53; Stop 07/11/19 at 07:53; Status DC Etomidate (Amidate) 20 mg STK-MED ONCE IV ; Start 07/11/19 at 07:53; Stop 07/11/19 at 07:54; Status DC Midazolam HCl (Versed) 5 mg STK-MED ONCE .ROUTE ; Start 07/11/19 at 07:57; Stop 07/11/19 at 07:57; Status DC Fentanyl Citrate 30 ml @ 0 mls/hr CONT PRN IV SEE PROTOCOL Last administered on 07/25/19at 05:40; Start 07/11/19 at 08:15 Artificial Tears (Artificial Tears) 1 drop PRN Q1HR PRN OU DRY EYE; Start 07/11/19 at 08:15 Midazolam HCl 50 mg/Sodium Chloride 50 ml @ 0 mls/hr CONT PRN IV SEE PROTOCOL Last administered on 07/14/19at 22:39; Start 07/11/19 at 08:15; Stop 07/16/19 at 15:59; Status DC Etomidate (Amidate) 8 mg 1X ONCE IV Last administered on 07/11/19at 08:33; Start 07/11/19 at 08:30; Stop 07/11/19 at 08:31; Status DC Succinylcholine Chloride (Anectine) 120 mg 1X ONCE IV Last administered on 07/11/19at 08:34; Start 07/11/19 at 08:30; Stop 07/11/19 at 08:31; Status DC Midazolam HCl (Versed) 5 mg 1X ONCE IV ; Start 07/11/19 at 08:30; Stop 07/11/19 at 08:31; Status DC Potassium Chloride 15 meq/ Bicarbonate Dialysis Soln w/ out KCl 5,007.5 ml @ 1,000 mls/ hr Q5H1M IV Last administered on 07/12/19at 11:11; Start 07/11/19 at 12:00; Stop 07/12/19 at 11:15; Status DC Potassium Chloride 15 meq/ Bicarbonate Dialysis Soln w/ out KCl 5,007.5 ml @ 1,000 mls/ hr Q5H1M IV Last administered on 07/12/19at 11:12; Start 07/11/19 at 12:00; Stop 07/12/19 at 11:17; Status DC Potassium Chloride 15 meq/ Bicarbonate Dialysis Soln w/ out KCl 5,007.5 ml @ 1,000 mls/ hr Q5H1M IV Last administered on 07/12/19at 11:11; Start 07/11/19 at 12:00; Stop 07/12/19 at 11:19; Status DC Sodium Chloride 90 meq/Potassium Chloride 15 meq/ Potassium Phosphate 10 mmol/ Magnesium Sulfate 10 meq/Calcium Gluconate 20 meq/ Multivitamins 10 ml/Chromium/ Copper/Manganese/ Seleni/Zn 0.5 ml/ Total Parenteral Nutrition/Amino Acids/Dextrose/ Fat Emulsion Intravenous 1,400 ml @ 58.333 mls/ hr TPN CONT IV Last administered on 07/11/19at 21:42; Start 07/11/19 at 22:00; Stop 07/12/19 at 21:59; Status DC Heparin Sodium (Porcine) (Heparin Sodium) 5,000 unit Q8HRS SQ Last administered on 07/16/19at 05:55; Start 07/11/19 at 15:00; Stop 07/16/19 at 13:28; Status DC Meropenem 500 mg/ Sodium Chloride 50 ml @ 100 mls/hr Q6HRS IV Last a dministered on 07/13/19at 06:00; Start 07/12/19 at 09:00; Stop 07/13/19 at 07:29; Status DC Potassium Phosphate 20 mmol/ Sodium Chloride 106.6667 ml @ 51.667 m... 1X ONCE IV Last administered on 07/12/19at 11:22; Start 07/12/19 at 10:15; Stop 3/24/20 at 12:18; Status DC Acetaminophen (Tylenol Supp) 650 mg PRN Q6HRS PRN WI MILD PAIN / TEMP Last administered on 07/12/19at 10:37; Start 07/12/19 at 10:30 Potassium Chloride/Water 100 ml @ 100 mls/hr Q1H IV Last administered on 07/12/19at 12:12; Start 07/12/19 at 11:00; Stop 07/12/19 at 12:59; Status DC Potassium Chloride 20 meq/ Bicarbonate Dialysis Soln w/ out KCl 5,010 ml @ 1,00 0 mls/hr Q5H1M IV Last administered on 07/13/19at 08:48; Start 07/12/19 at 12:00; Stop 07/13/19 at 13:03; Status DC Potassium Chloride 20 meq/ Bicarbonate Dialysis Soln w/ out KCl 5,010 ml @ 1,000 mls/hr Q5H1M IV Last administered on 07/17/19at 14:52; Start 07/12/19 at 11:30; Stop 07/17/19 at 19:59; Status DC Potassium Chloride 20 meq/ Bicarbonate Dialysis Soln w/ out KCl 5,010 ml @ 1,000 mls/hr Q5H1M IV Last administered on 07/17/19at 14:53; Start 07/12/19 at 11:30; Stop 07/17/19 at 19:59; Status DC Sodium Chloride 90 meq/Potassium Chloride 15 meq/ Potassium Phosphate 15 mmol/ Magnesium Sulfate 10 meq/Calcium Gluconate 15 meq/ Multivitamins 10 ml/Chromium/ Copper/Manganese/ Seleni/Zn 0.5 ml/ Total Parenteral Nutrition/Amino Acids/Dextrose/ Fat Emulsion Intravenous 1,400 ml @ 58.333 mls/ hr TPN CONT IV Last administered on 07/12/19at 22:17; Start 07/12/19 at 22:00; Stop 07/13/19 at 21:59; Status DC Cefepime HCl (Maxipime) 2 gm Q12HR IVP Last administered on 07/24/19at 21:18; Start 07/13/19 at 09:00 Daptomycin 500 mg/ Sodium Chloride 50 ml @ 100 mls/hr Q48H IV Last administered on 07/23/19at 15:01; Start 07/13/19 at 08:30 Lidocaine HCl (Buffered Lidocaine 1%) 3 ml 1X ONCE INJ Last administered on 07/13/19at 10:27; Start 07/13/19 at 10:30; Stop 07/13/19 at 10:31; Status DC Potassium Phosphate 20 mmol/ Sodium Chloride 106.6667 ml @ 51.667 m... 1X ONCE IV Last administered on 07/13/19at 12:51; Start 07/13/19 at 13:00; Stop 07/13/19 at 15:03; Status DC Sodium Chloride 90 meq/Potassium Chloride 15 meq/ Potassium Phosphate 18 mmol/ Magnesium Sulfate 8 meq/Calcium Gluconate 15 meq/ Multivitamins 10 ml/Chromium/ Copper/Manganese/ Seleni/Zn 0.5 ml/ Total Parenteral Nutrition/Amino Acids/Dextrose/ Fat Emulsion Intravenous 1,400 ml @ 58.333 mls/ hr TPN CONT IV Last administered on 07/13/19at 22:16; Start 07/13/19 at 22:00; Stop 07/14/19 at 21:59; Status DC Potassium Chloride 20 meq/ Bicarbonate Dialysis Soln w/ out KCl 5,010 ml @ 1,000 mls/hr Q5H1M IV Last administered on 07/17/19at 14:54; Start 07/13/19 at 1 6:00; Stop 07/17/19 at 19:59; Status DC Multi-Ingred Cream/Lotion/Oil/ Oint (Artificial Tears Eye Ointment) 1 ramu PRN Q1HR PRN OU DRY EYE Last administered on 07/22/19at 11:05; Start 07/13/19 at 17:30 Sodium Chloride 90 meq/Potassium Chloride 15 meq/ Potassium Phosphate 18 mmol/ Magnesium Sulfate 8 meq/Calcium Gluconate 15 meq/ Multivitamins 10 ml/Chromium/ Copper/Manganese/ Seleni/Zn 0.5 ml/ Total Parenteral Nutrition/Amino Acids/Dextrose/ Fat Emulsion Intravenous 1,400 ml @ 58.333 mls/ hr TPN CONT IV Last administered on 07/14/19at 22:00; Start 07/14/19 at 22:00; Stop 07/15/19 at 21:59; Status DC Albumin Human 500 ml @ 125 mls/hr 1X ONCE IV ; Start 07/14/19 at 14:15; Stop 07/14/19 at 18:14; Status DC Sodium Chloride 90 meq/Potassium Chloride 15 meq/ Potassium Phosphate 18 mmol/ Magnesium Sulfate 8 meq/Calcium Gluconate 15 meq/ Multivitamins 10 ml/Chromium/ Copper/Manganese/ Seleni/Zn 0.5 ml/ Insulin Human Regular 10 unit/ Total Parenteral Nutrition/Amino Acids/Dextrose/ Fat Emulsion Intravenous 1,400 ml @ 58.333 mls/ hr TPN CONT IV Last administered on 07/15/19at 21:43; Start 07/15/19 at 22:00; Stop 07/16/19 at 21:59; Status DC Lidocaine HCl (Buffered Lidocaine 1%) 3 ml STK-MED ONCE .ROUTE ; Start 07/13/19 at 10:00; Stop 07/15/19 at 13:57; Status DC Midazolam HCl 100 mg/Sodium Chloride 100 ml @ 7 mls/hr CONT PRN IV SEE PROTOCOL Last administered on 07/25/19at 00:40; Start 07/16/19 at 16:00 Sodium Chloride 90 meq/Potassium Chloride 15 meq/ Potassium Phosphate 18 mmol/ Magnesium Sulfate 8 meq/Calcium Gluconate 15 meq/ Multivitamins 10 ml/Chromium/ Copper/Manganese/ Seleni/Zn 0.5 ml/ Insulin Human Regular 15 unit/ Total Parenteral Nutrition/Amino Acids/Dextrose/ Fat Emulsion Intravenous 1,400 ml @ 58.333 mls/ hr TPN CONT IV Last administered on 07/16/19at 20:34; Start 07/16/19 at 22:00; Stop 07/17/19 at 21:59; Status DC Info (Icu Electrolyte Protocol) 1 ea CONT PRN PRN MC PER PROTOCOL; Start 07/17/19 at 13:15 Sodium Chloride 90 meq/Potassium Chloride 15 meq/ Potassium Phosphate 18 mmol/ Magnesium Sulfate 8 meq/Calcium Gluconate 15 meq/ Multivitamins 10 ml/Chromium/ Copper/Manganese/ Seleni/Zn 0.5 ml/ Insulin Human Regular 15 unit/ Total Parenteral Nutrition/Amino Acids/Dextrose/ Fat Emulsion Intravenous 1,400 ml @ 58.333 mls/ hr TPN CONT IV Last administered on 07/17/19at 22:05; Start 07/17/19 at 22:00; Stop 07/18/19 at 21:59; Status DC Potassium Chloride 15 meq/ Bicarbonate Dialysis Soln w/ out KCl 5,007.5 ml @ 1,000 mls/ hr Q5H1M IV Last administered on 07/20/19at 18:14; Start 07/17/19 at 20:00; Stop 07/21/19 at 13:08; Status DC Potassium Chloride 15 meq/ Bicarbonate Dialysis Soln w/ out KCl 5,007.5 ml @ 1,000 mls/ hr Q5H1M IV Last administered on 07/20/19at 18:14; Start 07/17/19 at 20:00; Stop 07/21/19 at 13:08; Status DC Potassium Chloride 15 meq/ Bicarbonate Dialysis Soln w/ out KCl 5,007.5 ml @ 1,000 mls/ hr Q5H1M IV Last administered on 07/20/19at 18:14; Start 07/17/19 at 20:00; Stop 07/21/19 at 13:08; Status DC Iohexol (Omnipaque 240 Mg/ml) 30 ml 1X ONCE PO Last administered on 07/18/19at 11:30; Start 07/18/19 at 11:30; Stop 07/18/19 at 11:33; Status DC Info (CONTRAST GIVEN -- Rx MONITORING) 1 each PRN DAILY PRN MC SEE COMMENTS; Start 07/18/19 at 11:45; Stop 07/20/19 at 11:44; Status DC Sodium Chloride 90 meq/Potassium Chloride 15 meq/ Potassium Phosphate 18 mmol/ Magnesium Sulfate 8 meq/Calcium Gluconate 15 meq/ Multivitamins 10 ml/Chromium/ Copper/Manganese/ Seleni/Zn 0.5 ml/ Insulin Human Regular 15 unit/ Total Parenteral Nutrition/Amino Acids/Dextrose/ Fat Emulsion Intravenous 1,400 ml @ 58.333 mls/ hr TPN CONT IV Last administered on 07/18/19at 21:47; Start 07/18/19 at 22:00; Stop 07/19/19 at 21:59; Status DC Sodium Chloride 90 meq/Potassium Chloride 15 meq/ Potassium Phosphate 18 mmol/ Magnesium Sulfate 8 meq/Calcium Gluconate 15 meq/ Multivitamins 10 ml/Chromium/ Copper/Manganese/ Seleni/Zn 0.5 ml/ Insulin Human Regular 20 unit/ Total Parenteral Nutrition/Amino Acids/Dextrose/ Fat Emulsion Intravenous 1,400 ml @ 58.333 mls/ hr TPN CONT IV Last administered on 07/19/19at 21:36; Start 07/19/19 at 22:00; Stop 07/20/19 at 21:59; Status DC Alteplase, Recombinant (Cathflo For Central Catheter Clearance) 1 mg 1X ONCE INT CAT Last administered on 07/19/19at 20:03; Start 07/19/19 at 19:30; Stop 07/19/19 at 19:46; Status DC Alteplase, Recombinant (Cathflo For Central Catheter Clearance) 1 mg 1X ONCE INT CAT Last administered on 07/19/19at 22:05; Start 07/19/19 at 22:00; Stop 07/19/19 at 22:01; Status DC Sodium Chloride 90 meq/Potassium Chloride 15 meq/ Potassium Phosphate 18 mmol/ Magnesium Sulfate 8 meq/Calcium Gluconate 15 meq/ Multivitamins 10 ml/Chromium/ Copper/Manganese/ Seleni/Zn 0.5 ml/ Insulin Human Regular 20 unit/ Total Parenteral Nutrition/Amino Acids/Dextrose/ Fat Emulsion Intravenous 1,400 ml @ 58.333 mls/ hr TPN CONT IV Last administered on 07/20/19at 21:30; Start 07/20/19 at 22:00; Stop 07/21/19 at 21:59; Status DC Dexmedetomidine HCl 400 mcg/ Sodium Chloride 100 ml @ 0 mls/hr CONT PRN IV ANXIETY / AGITATION Last administered on 07/25/19at 05:39; Start 07/21/19 at 08:15 Sodium Chloride 500 ml @ 500 mls/hr 1X PRN PRN IV ELEVATED BP, SEE COMMENTS; Start 07/21/19 at 08:15 Atropine Sulfate (ATROPINE 0.5mg SYRINGE) 0.5 mg PRN Q5MIN PRN IV SEE COMMENTS; Start 07/21/19 at 08:15 Furosemide (Lasix) 20 mg 1X ONCE IVP Last administered on 07/21/19at 08:19; Start 07/21/19 at 08:15; Stop 07/21/19 at 08:16; Status DC Lidocaine HCl (Buffered Lidocaine 1%) 3 ml STK-MED ONCE .ROUTE ; Start 07/21/19 at 08:39; Stop 07/21/19 at 08:39; Status DC Lidocaine HCl (Buffered Lidocaine 1%) 6 ml 1X ONCE INJ Last administered on 07/21/19at 09:05; Start 07/21/19 at 09:00; Stop 07/21/19 at 09:06; Status DC Sodium Chloride 90 meq/Potassium Chloride 15 meq/ Potassium Phosphate 18 mmol/ Magnesium Sulfate 8 meq/Calcium Gluconate 15 meq/ Multivitamins 10 ml/Chromium/ Copper/Manganese/ Seleni/Zn 0.5 ml/ Insulin Human Regular 20 unit/ Total Parenteral Nutrition/Amino Acids/Dextrose/ Fat Emulsion Intravenous 1,400 ml @ 58.333 mls/ hr TPN CONT IV Last administered on 07/21/19at 22:45; Start 07/21/19 at 22:00; Stop 07/22/19 at 21:59; Status DC Sodium Chloride 1,000 ml @ 1,000 mls/hr Q1H PRN IV hypotension; Start 07/22/19 at 07:30; Stop 07/22/19 at 13:29; Status DC Albumin Human 200 ml @ 200 mls/hr 1X PRN PRN IV Hypotension Last administered on 07/22/19at 09:36; Start 07/22/19 at 07:30; Stop 07/22/19 at 13:29; Status DC Sodium Chloride (Normal Saline Flush) 10 ml 1X PRN PRN IV AP catheter pack; Start 07/22/19 at 07:30; Stop 07/22/19 at 21:29; Status DC Sodium Chloride (Normal Saline Flush) 10 ml 1X PRN PRN IV CUST[employer]S ENTRY WRITER catheter pack; S tart 07/22/19 at 07:30; Stop 07/23/19 at 07:29; Status DC Sodium Chloride 1,000 ml @ 400 mls/hr Q2H30M PRN IV PATENCY; Start 07/22/19 at 07:30; Stop 07/22/19 at 19:29; Status DC Info (PHARMACY MONITORING -- do not chart) 1 each PRN DAILY PRN MC SEE COMMENTS ; Start 07/22/19 at 07:30; Stop 07/22/19 at 13:02; Status DC Info (PHARMACY MONITORING -- do not chart) 1 each PRN DAILY PRN MC SEE COMMENTS; Start 07/22/19 at 07:30; Stop 07/24/19 at 12:45; Status DC Sodium Chloride 90 meq/Potassium Chloride 15 meq/ Potassium Phosphate 10 mmol/ Magnesium Sulfate 8 meq/Calcium Gluconate 15 meq/ Multivitamins 10 ml/Chromium/ Copper/Manganese/ Seleni/Zn 0.5 ml/ Insulin Human Regular 25 unit/ Total Parenteral Nutrition/Amino Acids/Dextrose/ Fat Emulsion Intravenous 1,400 ml @ 58.333 mls/ hr TPN CONT IV Last administered on 07/22/19at 22:19; Start 07/22/19 at 22:00; Stop 07/23/19 at 21:59; Status DC Heparin Sodium (Porcine) (Heparin Sodium) 5,000 unit Q12HR SQ Last administered on 07/24/19at 21:21; Start 07/22/19 at 21:00 Ondansetron HCl (Zofran) 4 mg PRN Q6HRS PRN IV NAUSEA/VOMITING; Start 07/25/19 at 07:00; Stop 07/26/19 at 06:59 Fentanyl Citrate (Fentanyl 2ml Vial) 25 mcg PRN Q5MIN PRN IV MILD PAIN 1-3; Start 07/25/19 at 07:00; Stop 07/26/19 at 06:59 Fentanyl Citrate (Fentanyl 2ml Vial) 50 mcg PRN Q5MIN PRN IV MODERATE TO SEVERE PAIN; Start 07/25/19 at 07:00; Stop 07/26/19 at 06:59 Ringer's Solution 1,000 ml @ 30 mls/hr Q24H IV ; Start 07/25/19 at 07:00; Stop 07/25/19 at 18:59 Lidocaine HCl (Xylocaine-Mpf 1% 2ml Vial) 2 ml PRN 1X PRN ID PRIOR TO IV START; Start 07/25/19 at 07:00; Stop 07/26/19 at 06:59 Prochlorperazine Edisylate (Compazine) 5 mg PACU PRN PRN IV NAUSEA, MRX1; Start 07/25/19 at 07:00; Stop 07/26/19 at 06:59 Sodium Chloride 1,000 ml @ 1,000 mls/hr Q1H PRN IV hypotension; Start 07/23/19 at 09:10; Stop 07/23/19 at 15:09; Status DC Albumin Human 200 ml @ 200 mls/hr 1X PRN PRN IV Hypotension Last administered on 07/23/19at 10:10; Start 07/23/19 at 09:15; Stop 07/23/19 at 15:14; Status DC Sodium Chloride 1,000 ml @ 400 mls/hr Q2H30M PRN IV PATENCY; Start 07/23/19 at 09:10; Stop 07/23/19 at 21:09; Status DC Info (PHARMACY MONITORING -- do not chart) 1 each PRN DAILY PRN MC SEE COMMENTS; Start 07/23/19 at 09:15; Stop 07/24/19 at 12:45; Status DC Info (PHARMACY MONITORING -- do not chart) 1 each PRN DAILY PRN MC SEE COMMENTS; Start 07/23/19 at 09:15; Stop 07/24/19 at 12:45; Status DC Sodium Chloride 90 meq/Potassium Chloride 15 meq/ Potassium Phosphate 10 mmol/ Magnesium Sulfate 8 meq/Calcium Gluconate 15 meq/ Multivitamins 10 ml/Chromium/ Copper/Manganese/ Seleni/Zn 0.5 ml/ Insulin Human Regular 25 unit/ Total Parenteral Nutrition/Amino Acids/Dextrose/ Fat Emulsion Intravenous 1,400 ml @ 58.333 mls/ hr TPN CONT IV Last administered on 07/23/19at 22:10; Start 07/23/19 at 22:00; Stop 07/24/19 at 21:59; Status DC Magnesium Sulfate 50 ml @ 25 mls/hr PRN DAILY PRN IV for Mag < 1.7 on am labs; Start 07/24/19 at 09:15 Sodium Chloride 90 meq/Potassium Chloride 15 meq/ Potassium Phosphate 10 mmol/ Magnesium Sulfate 8 meq/Calcium Gluconate 15 meq/ Multivitamins 10 ml/Chromium/ Copper/Manganese/ Seleni/Zn 0.5 ml/ Insulin Human Regular 25 unit/ Total Parenteral Nutrition/Amino Acids/Dextrose/ Fat Emulsion Intravenous 1,400 ml @ 58.333 mls/ hr TPN CONT IV Last administered on 07/24/19at 21:20; Start 07/24/19 at 22:00; Stop 07/25/19 at 21:59 Sodium Chloride 1,000 ml @ 1,000 mls/hr Q1H PRN IV hypotension; Start 07/24/19 at 12:23; Stop 07/24/19 at 18:22; Status DC Albumin Human 200 ml @ 200 mls/hr 1X ONCE IV Last administered on 07/24/19at 13:34; Start 07/24/19 at 12:30; Stop 07/24/19 at 13:29; Status DC Diphenhydramine HCl (Benadryl) 25 mg 1X PRN PRN IV ITCHING; Start 07/24/19 at 12:30; Stop 07/25/19 at 12:29 Diphenhydramine HCl (Benadryl) 25 mg 1X PRN PRN IV ITCHING; Start 07/24/19 at 12:30; Stop 07/25/19 at 12:29 Info (PHARMACY MONITORING -- do not chart) 1 each PRN DAILY PRN MC SEE COMMENTS; Start 07/24/19 at 12:30 Active Scripts Active Reported Bisoprolol Fumarate 5 Mg Tablet 10 Mg PO DAILY Vitals/I & O Vital Sign - Last 24 Hours 07/24/19 07/24/19 07/24/19 07/24/19 09:00 10:00 11:00 11:35 Pulse 80 80 80 Resp 25 17 18 B/P (MAP) 103/51 (68) 93/57 (69) 95/57 (70) Pulse Ox 99 99 100 100 O2 Delivery Ventilator Ventilator Ventilator Ventilator 07/24/19 07/24/19 07/24/19 07/24/19 12:00 12:00 13:56 14:33 Temp 99.4 99.4 Pulse 81 Resp 17 25 B/P (MAP) 103/55 (71) Pulse Ox 100 100 100 O2 Delivery Mechanical Ventilator Ventilator Ventilator Ventilator 07/24/19 07/24/19 07/24/19 07/24/19 15:25 18:00 18:10 19:00 Temp 98.4 98.4 Pulse 85 84 Resp 23 18 B/P (MAP) 141/72 (95) 155/97 (116) Pulse Ox 100 99 100 97 O2 Delivery Ventilator Ventilator Ventilator Ventilator 07/24/19 07/24/19 07/24/19 07/24/19 20:00 20:00 20:26 21:00 Temp 98.7 98.7 Pulse 82 86 Resp 18 18 B/P (MAP) 124/67 (86) Pulse Ox 98 100 98 O2 Delivery Ventilator Mechanical Ventilator Ventilator Ventilator 07/24/19 07/24/19 07/24/19 07/24/19 21:25 22:00 22:09 23:00 Pulse 87 85 Resp 17 18 24 18 B/P (MAP) 124/83 (97) Pulse Ox 100 100 98 99 O2 Delivery Ventilator Ventilator Ventilator Ventilator 07/24/19 07/25/19 07/25/19 07/25/19 23:27 00:00 00:00 01:00 Temp 99.2 99.2 Pulse 83 79 Resp 18 18 B/P (MAP) 111/71 (84) 95/61 (72) Pulse Ox 100 100 100 O2 Delivery Ventilator Mechanical Ventilator Ventilator Ventilator 07/25/19 07/25/19 07/25/19 07/25/19 02:00 02:02 03:00 04:00 Pulse 79 79 Resp 18 18 B/P (MAP) 111/64 (80) 91/58 (69) Pulse Ox 100 100 99 O2 Delivery Ventilator Ventilator Ventilator Mechanical Ventilator 07/25/19 07/25/19 07/25/19 07/25/19 04:00 04:45 05:00 05:40 Temp 98.4 98.4 Pulse 79 79 Resp 18 18 18 B/P (MAP) 88/54 (65) 96/53 (67) Pulse Ox 100 100 100 100 O2 Delivery Ventilator Ventilator Ventilator Ventilator 07/25/19 07/25/19 07/25/19 07/25/19 06:00 06:26 07:00 07:39 Temp 97.7 97.7 Pulse 78 77 Resp 18 18 18 B/P (MAP) 115/72 (86) 104/65 (78) Pulse Ox 98 99 100 100 O2 Delivery Ventilator Ventilator Ventilator Ventilator 07/25/19 07:48 O2 Delivery Mechanical Ventilator Intake and Output 07/24/19 07/24/19 07/25/19 15:00 23:00 07:00 Intake Total 90 ml 479 ml 1363.2 ml Output Total 100 ml 495 ml 92 ml Balance -10 ml -16 ml 1271.2 ml Hemodynamically unstable?: No Is patient in severe pain?: No Is NPO status required?: Yes NIELS MCGILL MD Jul 25, 2019 08:34
[2019-07-25 08:35] LABS: FIO2 ABG 40
[2019-07-25] MEDS: DAPTOmycin (GENERIC) IVPB 500 MG in IV NORMAL SALINE 50ML 50 ML IV SCH (08:35)
[2019-07-25] MEDS: MICAFUNGIN 100 MG in IV DEXTROSE 5% 100ML 100 ML IV SCH (08:36)
[2019-07-25] MEDS: CEFEPIME HCL IV Push 2 GM VIAL. IVP SCH ×2 (08:36→21:47)
[2019-07-25] MEDS: HEPARIN for SUB-Q USE 5,000 UNIT/ML VIAL. SQ SCH ×2 (08:49→21:48)
--- NOTE | 2019-07-25 09:27 | PDOC ---
PULMONARY PROGRESS NOTES Subjective Patient intubated on 07/10 , sedated Currently on assist control ventilation 450 tidal volume 6 of PEEP ,40%FIO2 Nursing reports 600cc + overnight from OG, remains on levophed low dose Plan for trach today Vitals Vital Signs Date Time Temp Pulse Resp B/P (MAP) Pulse Ox O2 Delivery O2 Flow Rate FiO2 07/25/19 07:48 Mechanical Ventilator 07/25/19 07:39 100 07/25/19 07:00 97.7 77 18 104/65 (78) 97.7 Comments intubated/sedated Lungs: Other (dimished in BLL) Cardiovascular: S1, S2 Abdomen: Soft, Non-tender Extremities: Other (+3 generalized edema ) Skin: Warm, Dry Labs Laboratory Tests Test 07/23/19 14:54 07/23/19 17:50 07/23/19 18:38 07/23/19 23:52 Urine Collection Type Unknown Urine Color Red Urine Clarity Cloudy Urine pH 5.0 (<5.0-8.0) Urine Specific [place] 1.025 (1.000-1.030) Urine Protein 100 mg/dL (NEG-TRACE) Urine Glucose (UA) Negative mg/dL (NEG) Urine Ketones (Stick) Trace mg/dL (NEG) Urine Blood Large (NEG) Urine Nitrite Positive (NEG) Urine Bilirubin Small (NEG) Urine Urobilinogen Dipstick 0.2 mg/dL (0.2 mg/dL) Urine Leukocyte Esterase Small (NEG) Urine RBC Rare /HPF (0-2) Urine WBC 1-4 /HPF (0-4) Urine Squamous Epithelial Cells Occ /LPF Urine Amorphous Sediment Present /HPF Urine Bacteria 0 /HPF (0-FEW) O2 Saturation 98 % (92-99) Arterial Blood pH 7.48 (7.35-7.45) Arterial Blood pCO2 at Patient Temp 30 mmHg (35-46) Arterial Blood pO2 at Patient Temp 122 mmHg (75-108) Arterial Blood HCO3 22 mmol/L (21-28) Arterial Blood Base Excess -1 mmol/L (-3-3) FiO2 50 Glucose (Fingerstick) 171 mg/dL (70-99) 173 mg/dL (70-99) Test 07/24/19 06:00 07/24/19 06:17 07/24/19 08:00 07/24/19 11:44 White Blood Count 9.6 x10^3/uL (4.0-11.0) Red Blood Count 2.42 x10^6/uL (3.50-5.40) Hemoglobin 7.8 g/dL (12.0-15.5) Hematocrit 23.8 % (36.0-47.0) Mean Corpuscular Volume 98 fL (79-100) Mean Corpuscular Hemoglobin 32 pg (25-35) Mean Corpuscular Hemoglobin Concent 33 g/dL (31-37) Red Cell Distribution Width 19.5 % (11.5-14.5) Platelet Count 198 x10^3/uL (140-400) Neutrophils (%) (Auto) 76 % (31-73) Lymphocytes (%) (Auto) 10 % (24-48) Monocytes (%) (Auto) 7 % (0-9) Eosinophils (%) (Auto) 7 % (0-3) Basophils (%) (Auto) 1 % (0-3) Neutrophils # (Auto) 7.3 x10^3/uL (1.8-7.7) Lymphocytes # (Auto) 0.9 x10^3/uL (1.0-4.8) Monocytes # (Auto) 0.7 x10^3/uL (0.0-1.1) Eosinophils # (Auto) 0.6 x10^3/uL (0.0-0.7) Basophils # (Auto) 0.0 x10^3/uL (0.0-0.2) Sodium Level 139 mmol/L (136-145) Potassium Level 4.0 mmol/L (3.5-5.1) Chloride Level 104 mmol/L (98-107) Carbon Dioxide Level 26 mmol/L (21-32) Anion Gap 9 (6-14) Blood Urea Nitrogen 54 mg/dL (7-20) Creatinine 1.9 mg/dL (0.6-1.0) Estimated GFR (Cockcroft-Gault) 28.1 BUN/Creatinine Ratio 28 (6-20) Glucose Level 164 mg/dL (70-99) Calcium Level 8.3 mg/dL (8.5-10.1) Total Bilirubin 1.0 mg/dL (0.2-1.0) Aspartate Amino Transf (AST/SGOT) 47 U/L (15-37) Alanine Aminotransferase (ALT/SGPT) 20 U/L (14-59) Alkaline Phosphatase 81 U/L (46-116) Total Protein 5.0 g/dL (6.4-8.2) Albumin 2.3 g/dL (3.4-5.0) Albumin/Globulin Ratio 0.9 (1.0-1.7) Glucose (Fingerstick) 167 mg/dL (70-99) 162 mg/dL (70-99) O2 Saturation 97 % (92-99) Arterial Blood pH 7.42 (7.35-7.45) Arterial Blood pCO2 at Patient Temp 35 mmHg (35-46) Arterial Blood pO2 at Patient Temp 104 mmHg (75-108) Arterial Blood HCO3 22 mmol/L (21-28) Arterial Blood Base Excess -2 mmol/L (-3-3) FiO2 45 Test 07/24/19 18:09 07/24/19 23:55 07/25/19 05:26 07/25/19 05:45 Glucose (Fingerstick) 133 mg/dL (70-99) 158 mg/dL (70-99) 157 mg/dL (70-99) Hemoglobin 7.8 g/dL (12.0-15.5) Sodium Level 139 mmol/L (136-145) Potassium Level 4.2 mmol/L (3.5-5.1) Chloride Level 103 mmol/L (98-107) Carbon Dioxide Level 25 mmol/L (21-32) Anion Gap 11 (6-14) Blood Urea Nitrogen 48 mg/dL (7-20) Creatinine 1.8 mg/dL (0.6-1.0) Estimated GFR (Cockcroft-Gault) 29.9 Glucose Level 167 mg/dL (70-99) Calcium Level 8.6 mg/dL (8.5-10.1) Phosphorus Level 3.9 mg/dL (2.6-4.7) Magnesium Level 1.8 mg/dL (1.8-2.4) Albumin 2.6 g/dL (3.4-5.0) Test 07/25/19 07:40 O2 Saturation 97 % (92-99) Arterial Blood pH 7.42 (7.35-7.45) Arterial Blood pCO2 at Patient Temp 37 mmHg (35-46) Arterial Blood pO2 at Patient Temp 105 mmHg (75-108) Arterial Blood HCO3 24 mmol/L (21-28) Arterial Blood Base Excess -1 mmol/L (-3-3) FiO2 40 Laboratory Tests Test 07/24/19 11:44 07/24/19 18:09 07/24/19 23:55 07/25/19 05:26 Glucose (Fingerstick) 162 mg/dL (70-99) 133 mg/dL (70-99) 158 mg/dL (70-99) 157 mg/dL (70-99) Test 07/25/19 05:45 07/25/19 07:40 Hemoglobin 7.8 g/dL (12.0-15.5) Sodium Level 139 mmol/L (136-145) Potassium Level 4.2 mmol/L (3.5-5.1) Chloride Level 103 mmol/L (98-107) Carbon Dioxide Level 25 mmol/L (21-32) Anion Gap 11 (6-14) Blood Urea Nitrogen 48 mg/dL (7-20) Creatinine 1.8 mg/dL (0.6-1.0) Estimated GFR (Cockcroft-Gault) 29.9 Glucose Level 167 mg/dL (70-99) Calcium Level 8.6 mg/dL (8.5-10.1) Phosphorus Level 3.9 mg/dL (2.6-4.7) Magnesium Level 1.8 mg/dL (1.8-2.4) Albumin 2.6 g/dL (3.4-5.0) O2 Saturation 97 % (92-99) Arterial Blood pH 7.42 (7.35-7.45) Arterial Blood pCO2 at Patient Temp 37 mmHg (35-46) Arterial Blood pO2 at Patient Temp 105 mmHg (75-108) Arterial Blood HCO3 24 mmol/L (21-28) Arterial Blood Base Excess -1 mmol/L (-3-3) FiO2 40 Medications Active Scripts Medications Dose Route/Sig Max Daily Dose Days Date Category Bisoprolol Fumarate 5 Mg Tablet 10 Mg PO DAILY 07/04/19 Reported Comments Chest x-ray reviewed 07/24 IMPRESSION: 1. Increased moderate to large bilateral posteriorly layering pleural effusions with associated atelectasis. Impression . IMPRESSION: 1. Acute hypoxemic respiratory failure secondary to ARDS due to acute pancreatitis, septic shock, abdominal distention, and pneumonia.and pleural effusions. Pleural effusions secondary to abdominal process and/or general volume overload from renal failure- ongoing, plan for trach 07/25/19 2. Gallstone pancreatitis. WITH NECROSIS 3. Severe metabolic acidosis.stable 4. Acute kidney injury-stable 5. Acute gallstone pancreatitis. 6. Hypoalbuminemia. 7. Hypocalcemia. 8. Leukocytosis 9. Chronic anemia 10. Covid 19 testing negative 11. Acute /chronic anemia suspected hemorrhagic fluid in pelvis 12, Fever per ID Plan . AC mode, plan for trach today, hold CPAP trial, will also replace central line today Transfuse prn, check H/H Not a surgical candidate per surgery Antibiotics per ID, Follow nephrology input,HD per renal Nutritional support with TPN Prognosis is guarded DVT/GI PPX d/w RN/RT FULL CODE VINAYAK LANDRUM MD Jul 25, 2019 09:27
--- NOTE | 2019-07-25 10:01 | PDOC ---
SUBJECTIVE ROS s/p Trach this am OBJECTIVE Vital Signs Vital Signs Date Time Temp Pulse Resp B/P (MAP) Pulse Ox O2 Delivery O2 Flow Rate FiO2 07/25/19 09:00 77 18 95/72 (80) 99 Ventilator 07/25/19 07:00 97.7 97.7 I & 0 Intake and Output 07/25/19 07:00 Intake Total 2032.2 ml Output Total 687 ml Balance 1345.2 ml Intake Oral 0 ml IV Total 2032.2 ml Output Urine Total 287 ml Gastric Drainage Total 400 ml PHYSICAL EXAM Physical Exam GENERAL: On MV HEENT om moist NECK: Trach + LUNGS: Diminished aeration bases HEART: S1, S2, regular ABDOMEN: Distended, hypoactive BS, Rectal tube in place : Lind EXTREMITIES: Generalized edema, some mottling DERMATOLOGIC: No generalized rash. CENTRAL NERVOUS SYSTEM: Sedated RIJ Temp HDC DIAGNOSIS/ASSESSMENT Assessment & Plan ARF-- ATN, Off CRRT Currently daily HD mainly for UF attempt UF 3-4 as tolerated Treatment plan reviewed and discussed with perforator operator Anemia- per primary Currently on HIRAM Anasarca due to 3rd spacing Hyperkalemia- resolved AC Panreatitis, early developing necrosis Cholelithiasis Acute hypoxic resp failure ,bilateral pleural effusion On MV hypocalcemia - stable HTN- Hypotensive , pressors as indicated COMMENT/RELEVANT DATA Meds Current Medications Medications (Trade) Dose Ordered Sig/Yvon Start Time Stop Time Status Last Admin Dose Admin Acetaminophen (Tylenol Supp) 650 mg PRN Q6HRS PRN 07/12/19 10:30 07/12/19 10:37 650 MG Acetaminophen (Tylenol) 650 mg PRN Q6HRS PRN 07/09/19 03:36 07/14/19 07:35 650 MG Albumin Human 200 ml @ 200 mls/hr 1X ONCE 07/24/19 12:30 07/24/19 13:29 DC 07/24/19 13:34 200 MLS/HR Albuterol Sulfate (Ventolin Neb Soln) 2.5 mg 1X ONCE 07/05/19 22:30 07/05/19 22:31 DC 07/06/19 00:56 2.5 MG Alteplase, Recombinant (Cathflo For Central Catheter Clearance) 1 mg 1X ONCE 07/19/19 22:00 07/19/19 22:01 DC 07/19/19 22:05 1 MG Artificial Tears (Artificial Tears) 1 drop PRN Q1HR PRN 07/11/19 08:15 Atenolol (Tenormin) 100 mg DAILY 07/05/19 09:00 07/04/19 20:08 DC Atropine Sulfate (ATROPINE 0.5mg SYRINGE) 0.5 mg PRN Q5MIN PRN 07/21/19 08:15 Benzocaine (Hurricaine One) 1 spray 1X ONCE 07/08/19 14:30 07/08/19 14:31 DC 07/08/19 16:38 1 SPRAY Calcium Carbonate/ Glycine (Tums) 500 mg PRN AFTMEALHC PRN 07/06/19 17:45 Calcium Chloride 1000 mg/Sodium Chloride 110 ml @ 220 mls/hr 1X ONCE 07/05/19 22:30 07/05/19 22:59 DC 07/05/19 22:11 220 MLS/HR Calcium Chloride 3000 mg/Sodium Chloride 1,030 ml @ 50 mls/hr [id number] 07/07/19 08:00 07/09/19 15:23 DC 07/09/19 02:17 50 MLS/HR Calcium Gluconate (Calcium Gluconate) 2,000 mg 1X ONCE 07/07/19 02:15 07/07/19 02:16 DC 07/07/19 02:19 2,000 MG Calcium Gluconate 1000 mg/Sodium Chloride 110 ml @ 220 mls/hr 1X ONCE 07/06/19 03:30 07/06/19 03:59 DC 07/06/19 03:21 220 MLS/HR Calcium Gluconate 2000 mg/Sodium Chloride 120 ml @ 220 mls/hr 1X ONCE 07/06/19 07:30 07/06/19 08:02 DC 07/06/19 09:05 220 MLS/HR Cefepime HCl (Maxipime) 2 gm Q12HR 07/13/19 09:00 07/25/19 08:36 2 GM Daptomycin 500 mg/ Sodium Chloride 50 ml @ 100 mls/hr Q48H 07/13/19 08:30 07/25/19 08:35 100 MLS/HR Dexmedetomidine HCl 400 mcg/ Sodium Chloride 100 ml @ 0 mls/hr CONT PRN 07/21/19 08:15 07/25/19 09:19 27.8 MLS/HR Dextrose (Dextrose 50%-Water Syringe) 12.5 gm PRN Q15MIN PRN 07/04/19 09:30 Digoxin (Lanoxin) 125 mcg 1X ONCE 07/07/19 18:00 07/07/19 18:01 DC 07/07/19 17:10 125 MCG Diphenhydramine HCl (Benadryl) 25 mg 1X PRN PRN 07/24/19 12:30 07/25/19 12:29 Etomidate (Amidate) 8 mg 1X ONCE 07/11/19 08:30 07/11/19 08:31 DC 07/11/19 08:33 8 MG Fentanyl Citrate (Fentanyl 2ml Vial) 50 mcg PRN Q5MIN PRN 07/25/19 07:00 07/26/19 06:59 Furosemide (Lasix) 20 mg 1X ONCE 07/21/19 08:15 07/21/19 08:16 DC 07/21/19 08:19 20 MG Heparin Sodium (Porcine) (Heparin Sodium) 5,000 unit Q12HR 07/22/19 21:00 07/24/19 21:21 5,000 UNIT Hydromorphone HCl (Dilaudid) 1 mg PRN Q3HRS PRN 07/05/19 12:00 07/19/19 00:25 DC 07/11/19 05:13 1 MG Info (CONTRAST GIVEN -- Rx MONITORING) 1 each PRN DAILY PRN 07/18/19 11:45 07/20/19 11:44 DC Info (Icu Electrolyte Protocol) 1 ea CONT PRN PRN 07/17/19 13:15 Info (PHARMACY MONITORING -- do not chart) 1 each PRN DAILY PRN 07/24/19 12:30 Info (Tpn Per Pharmacy) 1 each PRN DAILY PRN 07/06/19 12:30 UNV Insulin Human Lispro (HumaLOG) 0-9 UNITS Q6HRS 07/04/19 09:30 07/25/19 06:18 4 UNITS Insulin Human Regular (HumuLIN R VIAL) 5 unit 1X ONCE 07/05/19 22:30 07/05/19 22:31 DC 07/05/19 22:14 5 UNIT Iohexol (Omnipaque 240 Mg/ml) 30 ml 1X ONCE 07/18/19 11:30 07/18/19 11:33 DC 07/18/19 11:30 30 ML Iohexol (Omnipaque 300 Mg/ml) 60 ml 1X ONCE 07/05/19 17:00 07/05/19 17:01 DC 07/05/19 17:20 60 ML Iohexol (Omnipaque 350 Mg/ml) 90 ml 1X ONCE 07/04/19 03:30 07/04/19 03:31 DC 07/04/19 03:25 90 ML Ketorolac Tromethamine (Toradol 30mg Vial) 30 mg 1X ONCE 07/04/19 03:00 07/04/19 03:01 DC 07/04/19 02:54 30 MG Lidocaine HCl (Buffered Lidocaine 1%) 6 ml 1X ONCE 07/21/19 09:00 07/21/19 09:06 DC 07/21/19 09:05 6 ML Lidocaine HCl (Glydo (Lidocaine) Jelly) 1 ramu 1X ONCE 07/08/19 14:30 07/08/19 14:31 DC 07/08/19 16:38 1 RAMU Lidocaine HCl (Xylocaine-Mpf 1% 2ml Vial) 2 ml PRN 1X PRN 07/25/19 07:00 07/26/19 06:59 Linezolid/Dextrose 300 ml @ 300 mls/hr Q12HR 07/08/19 20:00 07/15/19 07:50 DC 07/14/19 21:04 300 MLS/HR Lorazepam (Ativan Inj) 1 mg PRN Q4HRS PRN 07/07/19 09:00 07/11/19 00:34 1 MG Magnesium Sulfate 50 ml @ 25 mls/hr PRN DAILY PRN 07/24/19 09:15 Meropenem 1 gm/ Sodium Chloride 100 ml @ 200 mls/hr Q8HRS 07/05/19 20:00 07/06/19 08:48 DC 07/06/19 05:45 200 MLS/HR Meropenem 500 mg/ Sodium Chloride 50 ml @ 100 mls/hr Q6HRS 07/12/19 09:00 07/13/19 07:29 DC 07/13/19 06:00 100 MLS/HR Metoprolol Tartrate (Lopressor Vial) 5 mg Q6HRS 07/05/19 10:15 07/16/19 08:48 DC 07/14/19 00:12 5 MG Metronidazole 100 ml @ 100 mls/hr Q6HRS 07/11/19 08:30 07/25/19 06:16 100 MLS/HR Micafungin Sodium 100 mg/Dextrose 100 ml @ 100 mls/hr Q24H 07/11/19 09:00 07/25/19 08:36 100 MLS/HR Midazolam HCl (Versed) 5 mg 1X ONCE 07/11/19 08:30 07/11/19 08:31 DC Midazolam HCl 100 mg/Sodium Chloride 100 ml @ 7 mls/hr CONT PRN 07/16/19 16:00 07/25/19 00:40 7 MLS/HR Midazolam HCl 50 mg/Sodium Chloride 50 ml @ 0 mls/hr CONT PRN 07/11/19 08:15 07/16/19 15:59 DC 07/14/19 22:39 7 MLS/HR Morphine Sulfate (Morphine Sulfate) 2 mg PRN Q2HR PRN 07/04/19 05:00 07/05/19 14:15 DC 07/05/19 12:26 2 MG Multi-Ingred Cream/Lotion/Oil/ Oint (Artificial Tears Eye Ointment) 1 ramu PRN Q1HR PRN 07/13/19 17:30 07/22/19 11:05 1 RAMU Norepinephrine Bitartrate 8 mg/ Dextrose 258 ml @ 17.299 mls/ hr CONT PRN 07/05/19 15:30 07/24/19 21:18 1.73 MLS/HR Ondansetron HCl (Zofran) 4 mg PRN Q6HRS PRN 07/25/19 07:00 07/26/19 06:59 Pantoprazole Sodium (PROTONIX VIAL for IV PUSH) 40 mg DAILYAC 07/04/19 11:30 07/25/19 08:34 40 MG Piperacillin Sod/ Tazobactam Sod 4.5 gm/Sodium Chloride 100 ml @ 200 mls/hr 1X ONCE 07/04/19 06:00 07/04/19 06:29 DC 07/04/19 05:44 200 MLS/HR Potassium Chloride 15 meq/ Bicarbonate Dialysis Soln w/ out KCl 5,007.5 ml @ 1,000 mls/ hr Q5H1M 07/17/19 20:00 07/21/19 13:08 DC 07/20/19 18:14 1,000 MLS/HR Potassium Chloride 20 meq/ Bicarbonate Dialysis Soln w/ out KCl 5,010 ml @ 1,000 mls/hr Q5H1M 07/13/19 16:00 07/17/19 19:59 DC 07/17/19 14:54 1,000 MLS/HR Potassium Chloride/Water 100 ml @ 100 mls/hr Q1H 07/12/19 11:00 07/12/19 12:59 DC 07/12/19 12:12 100 MLS/HR Potassium Phosphate 20 mmol/ Sodium Chloride 106.6667 ml @ 51.667 m... 1X ONCE 07/13/19 13:00 07/13/19 15:03 DC 07/13/19 12:51 51.667 MLS/HR Prochlorperazine Edisylate (Compazine) 5 mg PACU PRN PRN 07/25/19 07:00 07/26/19 06:59 Propofol 0 ml @ As Directed STK-MED ONCE 07/11/19 07:53 07/11/19 07:53 DC Ringer's Solution 1,000 ml @ 30 mls/hr Q24H 07/25/19 07:00 07/25/19 18:59 Sodium Bicarbonate 50 meq/Sodium Chloride 1,050 ml @ 75 mls/hr Q14H 07/06/19 07:30 07/11/19 10:28 DC 07/10/19 21:10 75 MLS/HR Sodium Chloride 1,000 ml @ 1,000 mls/hr Q1H PRN 07/24/19 12:23 07/24/19 18:22 DC Sodium Chloride (Normal Saline Flush) 10 ml 1X PRN PRN 07/22/19 07:30 07/23/19 07:29 DC Sodium Chloride 90 meq/Calcium Gluconate 10 meq/ Multivitamins 10 ml/Chromium/ Copper/Manganese/ Seleni/Zn 0.5 ml/ Total Parenteral Nutrition/Amino Acids/Dextrose/ Fat Emulsion Intravenous 1,512 ml @ 63 mls/hr TPN CONT 07/06/19 22:00 07/07/19 21:59 DC 07/06/19 22:06 63 MLS/HR Sodium Chloride 90 meq/Calcium Gluconate 10 meq/ Multivitamins 10 ml/Chromium/ Copper/Manganese/ Seleni/Zn 1 ml/ Total Parenteral Nutrition/Amino Acids/Dextrose/ Fat Emulsion Intravenous 55.005 ml @ 2.292 mls/hr TPN CONT 07/06/19 22:00 07/06/19 12:33 DC Sodium Chloride 90 meq/Magnesium Sulfate 10 meq/ Calcium Gluconate 20 meq/ Multivitamins 10 ml/Chromium/ Copper/Manganese/ Seleni/Zn 0.5 ml/ Total Parenteral Nutrition/Amino Acids/Dextrose/ Fat Emulsion Intravenous 1,512 ml @ 63 mls/hr TPN CONT 07/07/19 22:00 07/08/19 21:59 DC 07/07/19 22:25 63 MLS/HR Sodium Chloride 90 meq/Potassium Chloride 15 meq/ Potassium Phosphate 10 mmol/ Magnesium Sulfate 8 meq/Calcium Gluconate 15 meq/ Multivitamins 10 ml/Chromium/ Copper/Manganese/ Seleni/Zn 0.5 ml/ Insulin Human Regular 25 unit/ Total Parenteral Nutrition/Amino Acids/Dextrose/ Fat Emulsion Intravenous 1,400 ml @ 58.333 mls/ hr TPN CONT 07/24/19 22:00 07/25/19 21:59 07/24/19 21:20 58.333 MLS/HR Sodium Chloride 90 meq/Potassium Chloride 15 meq/ Potassium Phosphate 10 mmol/ Magnesium Sulfate 10 meq/Calcium Gluconate 20 meq/ Multivitamins 10 ml/Chromium/ Copper/Manganese/ Seleni/Zn 0.5 ml/ Total Parenteral Nutrition/Amino Acids/Dextrose/ Fat Emulsion Intravenous 1,400 ml @ 58.333 mls/ hr TPN CONT 07/11/19 22:00 07/12/19 21:59 DC 07/11/19 21:42 58.333 MLS/HR Sodium Chloride 90 meq/Potassium Chloride 15 meq/ Potassium Phosphate 15 mmol/ Magnesium Sulfate 10 meq/Calcium Gluconate 15 meq/ Multivitamins 10 ml/Chromium/ Copper/Manganese/ Seleni/Zn 0.5 ml/ Total Parenteral Nutrition/Amino Acids/Dextrose/ Fat Emulsion Intravenous 1,400 ml @ 58.333 mls/ hr TPN CONT 07/12/19 22:00 07/13/19 21:59 DC 07/12/19 22:17 58.333 MLS/HR Sodium Chloride 90 meq/Potassium Chloride 15 meq/ Potassium Phosphate 15 mmol/ Magnesium Sulfate 10 meq/Calcium Gluconate 20 meq/ Multivitamins 10 ml/Chromium/ Copper/Manganese/ Seleni/Zn 0.5 ml/ Total Parenteral Nutrition/Amino Acids/Dextrose/ Fat Emulsion Intravenous 1,200 ml @ 50 mls/hr TPN CONT 07/10/19 22:00 07/10/19 14:17 DC Sodium Chloride 90 meq/Potassium Chloride 15 meq/ Potassium Phosphate 18 mmol/ Magnesium Sulfate 8 meq/Calcium Gluconate 15 meq/ Multivitamins 10 ml/Chromium/ Copper/Manganese/ Seleni/Zn 0.5 ml/ Insulin Human Regular 10 unit/ Total Parenteral Nutrition/Amino Acids/Dextrose/ Fat Emulsion Intravenous 1,400 ml @ 58.333 mls/ hr TPN CONT 07/15/19 22:00 07/16/19 21:59 DC 07/15/19 21:43 58.333 MLS/HR Sodium Chloride 90 meq/Potassium Chloride 15 meq/ Potassium Phosphate 18 mmol/ Magnesium Sulfate 8 meq/Calcium Gluconate 15 meq/ Multivitamins 10 ml/Chromium/ Copper/Manganese/ Seleni/Zn 0.5 ml/ Insulin Human Regular 15 unit/ Total Parenteral Nutrition/Amino Acids/Dextrose/ Fat Emulsion Intravenous 1,400 ml @ 58.333 mls/ hr TPN CONT 07/18/19 22:00 07/19/19 21:59 DC 07/18/19 21:47 58.333 MLS/HR Sodium Chloride 90 meq/Potassium Chloride 15 meq/ Potassium Phosphate 18 mmol/ Magnesium Sulfate 8 meq/Calcium Gluconate 15 meq/ Multivitamins 10 ml/Chromium/ Copper/Manganese/ Seleni/Zn 0.5 ml/ Insulin Human Regular 20 unit/ Total Parenteral Nutrition/Amino Acids/Dextrose/ Fat Emulsion Intravenous 1,400 ml @ 58.333 mls/ hr TPN CONT 07/21/19 22:00 07/22/19 21:59 DC 07/21/19 22:45 58.333 MLS/HR Sodium Chloride 90 meq/Potassium Chloride 15 meq/ Potassium Phosphate 18 mmol/ Magnesium Sulfate 8 meq/Calcium Gluconate 15 meq/ Multivitamins 10 ml/Chromium/ Copper/Manganese/ Seleni/Zn 0.5 ml/ Total Parenteral Nutrition/Amino Acids/Dextrose/ Fat Emulsion Intravenous 1,400 ml @ 58.333 mls/ hr TPN CONT 07/14/19 22:00 07/15/19 21:59 DC 07/14/19 22:00 58.333 MLS/HR Succinylcholine Chloride (Anectine) 120 mg 1X ONCE 07/11/19 08:30 07/11/19 08:31 DC 07/11/19 08:34 120 MG Lab Laboratory Tests Test 07/24/19 11:44 07/24/19 18:09 07/24/19 23:55 07/25/19 05:26 Glucose (Fingerstick) 162 mg/dL (70-99) 133 mg/dL (70-99) 158 mg/dL (70-99) 157 mg/dL (70-99) Test 07/25/19 05:45 07/25/19 07:40 Hemoglobin 7.8 g/dL (12.0-15.5) Sodium Level 139 mmol/L (136-145) Potassium Level 4.2 mmol/L (3.5-5.1) Chloride Level 103 mmol/L (98-107) Carbon Dioxide Level 25 mmol/L (21-32) Anion Gap 11 (6-14) Blood Urea Nitrogen 48 mg/dL (7-20) Creatinine 1.8 mg/dL (0.6-1.0) Estimated GFR (Cockcroft-Gault) 29.9 Glucose Level 167 mg/dL (70-99) Calcium Level 8.6 mg/dL (8.5-10.1) Phosphorus Level 3.9 mg/dL (2.6-4.7) Magnesium Level 1.8 mg/dL (1.8-2.4) Albumin 2.6 g/dL (3.4-5.0) O2 Saturation 97 % (92-99) Arterial Blood pH 7.42 (7.35-7.45) Arterial Blood pCO2 at Patient Temp 37 mmHg (35-46) Arterial Blood pO2 at Patient Temp 105 mmHg (75-108) Arterial Blood HCO3 24 mmol/L (21-28) Arterial Blood Base Excess -1 mmol/L (-3-3) FiO2 40 Results All relevant outside records, renal labs, imaging studies, telemetry/EKG's were reviewed. Other 1. Increased moderate to large bilateral posteriorly layering pleural effusions with associated atelectasis. VERENA KENT MD Jul 25, 2019 10:01
[2019-07-25] MEDS ORDERED: SURGICEL FIBRILLAR 1X2 EACH. ONE (11:00)
[2019-07-25] MEDS ORDERED: BUPIVACAINE-EPI 0.5%-1:200000 MPF 30 ML VIAL. ONE (11:00)
[2019-07-25] MEDS ORDERED: PROPOFOL 20 ML IV ONE (11:07)
[2019-07-25] MEDS: TPN PER PHARMACY MC PRN (11:10)
--- NOTE | 2019-07-25 11:11 | NUR ---
Pharmacy TPN Dosing Note S: SCOTT AVILA is a 48 year old F Currently receiving Central Continuous TPN started 07/06/19 B:Pertinent PMH: Necrotizing pancreatitis Height: 5 feet, 8 inches Weight: 112.0 kg Current diet: NPO LABS: Sodium: 139 Potassium: 4.2 Chloride: 103 Calcium: 8.6 Corrected Calcium: 9.72 Magnesium: 1.8 CO2: 25 SCr: 1.8 Glucose: 157-167 Albumin: 2.6 AST: 47 ALT: 20 TPN FORMULA: TPN TYPE: Central Continuous AMINO ACIDS: 125 gm DEXTROSE: 195 gm LIPIDS: 40 gm SODIUM CHLORIDE: 90 mEq SODIUM ACETATE: -- mEq SODIUM PHOSPHATE: -- mmol POTASSIUM CHLORIDE: 15 mEq POTASSIUM ACETATE: -- mEq POTASSIUM PHOSPHATE: 10 mmol MAGNESIUM: 12 mEq CALCIUM: 15 mEq INSULIN: 25 units MULTIPLE VITAMIN: 10 ml TRACE ELEMENTS: 0.5 ml(s) TPN PLAN: Pt continues daily HD; labs mostly stable. Added 4 meq mag sulfate for trending low magnesium. No other changes. Renal panel in AM per primary. R: Continue TPN as above. Will monitor electrolytes, glucose, and tolerance to TPN. CHRISTIAN VALLEJO [facility]OPER [facility], 07/25/19 1111
--- NOTE | 2019-07-25 11:35 | PDOC ---
SURGICAL PROGRESS NOTE Subjective Pre-Op Note 48 yo F with severe pancreatitis and associated respiratory failure. TO OR for tracheostomy placement. R/R/B/A d/w pt's daughter previously. Vital Signs Vital Signs Date Time Temp Pulse Resp B/P (MAP) Pulse Ox O2 Delivery O2 Flow Rate FiO2 07/25/19 11:00 97.9 76 18 103/65 (78) 99 Ventilator 97.9 I&O Intake and Output 07/25/19 07:00 Intake Total 2032.2 ml Output Total 687 ml Balance 1345.2 ml Intake Oral 0 ml IV Total 2032.2 ml Output Urine Total 287 ml Gastric Drainage Total 400 ml Labs Laboratory Tests Test 07/23/19 14:54 07/23/19 17:50 07/23/19 18:38 07/23/19 23:52 Urine Collection Type Unknown Urine Color Red Urine Clarity Cloudy Urine pH 5.0 (<5.0-8.0) Urine Specific [place] 1.025 (1.000-1.030) Urine Protein 100 mg/dL (NEG-TRACE) Urine Glucose (UA) Negative mg/dL (NEG) Urine Ketones (Stick) Trace mg/dL (NEG) Urine Blood Large (NEG) Urine Nitrite Positive (NEG) Urine Bilirubin Small (NEG) Urine Urobilinogen Dipstick 0.2 mg/dL (0.2 mg/dL) Urine Leukocyte Esterase Small (NEG) Urine RBC Rare /HPF (0-2) Urine WBC 1-4 /HPF (0-4) Urine Squamous Epithelial Cells Occ /LPF Urine Amorphous Sediment Present /HPF Urine Bacteria 0 /HPF (0-FEW) O2 Saturation 98 % (92-99) Arterial Blood pH 7.48 (7.35-7.45) Arterial Blood pCO2 at Patient Temp 30 mmHg (35-46) Arterial Blood pO2 at Patient Temp 122 mmHg (75-108) Arterial Blood HCO3 22 mmol/L (21-28) Arterial Blood Base Excess -1 mmol/L (-3-3) FiO2 50 Glucose (Fingerstick) 171 mg/dL (70-99) 173 mg/dL (70-99) Test 07/24/19 06:00 07/24/19 06:17 07/24/19 08:00 07/24/19 11:44 White Blood Count 9.6 x10^3/uL (4.0-11.0) Red Blood Count 2.42 x10^6/uL (3.50-5.40) Hemoglobin 7.8 g/dL (12.0-15.5) Hematocrit 23.8 % (36.0-47.0) Mean Corpuscular Volume 98 fL (79-100) Mean Corpuscular Hemoglobin 32 pg (25-35) Mean Corpuscular Hemoglobin Concent 33 g/dL (31-37) Red Cell Distribution Width 19.5 % (11.5-14.5) Platelet Count 198 x10^3/uL (140-400) Neutrophils (%) (Auto) 76 % (31-73) Lymphocytes (%) (Auto) 10 % (24-48) Monocytes (%) (Auto) 7 % (0-9) Eosinophils (%) (Auto) 7 % (0-3) Basophils (%) (Auto) 1 % (0-3) Neutrophils # (Auto) 7.3 x10^3/uL (1.8-7.7) Lymphocytes # (Auto) 0.9 x10^3/uL (1.0-4.8) Monocytes # (Auto) 0.7 x10^3/uL (0.0-1.1) Eosinophils # (Auto) 0.6 x10^3/uL (0.0-0.7) Basophils # (Auto) 0.0 x10^3/uL (0.0-0.2) Sodium Level 139 mmol/L (136-145) Potassium Level 4.0 mmol/L (3.5-5.1) Chloride Level 104 mmol/L (98-107) Carbon Dioxide Level 26 mmol/L (21-32) Anion Gap 9 (6-14) Blood Urea Nitrogen 54 mg/dL (7-20) Creatinine 1.9 mg/dL (0.6-1.0) Estimated GFR (Cockcroft-Gault) 28.1 BUN/Creatinine Ratio 28 (6-20) Glucose Level 164 mg/dL (70-99) Calcium Level 8.3 mg/dL (8.5-10.1) Total Bilirubin 1.0 mg/dL (0.2-1.0) Aspartate Amino Transf (AST/SGOT) 47 U/L (15-37) Alanine Aminotransferase (ALT/SGPT) 20 U/L (14-59) Alkaline Phosphatase 81 U/L (46-116) Total Protein 5.0 g/dL (6.4-8.2) Albumin 2.3 g/dL (3.4-5.0) Albumin/Globulin Ratio 0.9 (1.0-1.7) Glucose (Fingerstick) 167 mg/dL (70-99) 162 mg/dL (70-99) O2 Saturation 97 % (92-99) Arterial Blood pH 7.42 (7.35-7.45) Arterial Blood pCO2 at Patient Temp 35 mmHg (35-46) Arterial Blood pO2 at Patient Temp 104 mmHg (75-108) Arterial Blood HCO3 22 mmol/L (21-28) Arterial Blood Base Excess -2 mmol/L (-3-3) FiO2 45 Test 07/24/19 18:09 07/24/19 23:55 07/25/19 05:26 07/25/19 05:45 Glucose (Fingerstick) 133 mg/dL (70-99) 158 mg/dL (70-99) 157 mg/dL (70-99) Hemoglobin 7.8 g/dL (12.0-15.5) Sodium Level 139 mmol/L (136-145) Potassium Level 4.2 mmol/L (3.5-5.1) Chloride Level 103 mmol/L (98-107) Carbon Dioxide Level 25 mmol/L (21-32) Anion Gap 11 (6-14) Blood Urea Nitrogen 48 mg/dL (7-20) Creatinine 1.8 mg/dL (0.6-1.0) Estimated GFR (Cockcroft-Gault) 29.9 Glucose Level 167 mg/dL (70-99) Calcium Level 8.6 mg/dL (8.5-10.1) Phosphorus Level 3.9 mg/dL (2.6-4.7) Magnesium Level 1.8 mg/dL (1.8-2.4) Albumin 2.6 g/dL (3.4-5.0) Test 07/25/19 07:40 07/25/19 11:21 O2 Saturation 97 % (92-99) Arterial Blood pH 7.42 (7.35-7.45) Arterial Blood pCO2 at Patient Temp 37 mmHg (35-46) Arterial Blood pO2 at Patient Temp 105 mmHg (75-108) Arterial Blood HCO3 24 mmol/L (21-28) Arterial Blood Base Excess -1 mmol/L (-3-3) FiO2 40 Glucose (Fingerstick) 169 mg/dL (70-99) Laboratory Tests Test 07/24/19 11:44 07/24/19 18:09 07/24/19 23:55 07/25/19 05:26 Glucose (Fingerstick) 162 mg/dL (70-99) 133 mg/dL (70-99) 158 mg/dL (70-99) 157 mg/dL (70-99) Test 07/25/19 05:45 07/25/19 07:40 07/25/19 11:21 Hemoglobin 7.8 g/dL (12.0-15.5) Sodium Level 139 mmol/L (136-145) Potassium Level 4.2 mmol/L (3.5-5.1) Chloride Level 103 mmol/L (98-107) Carbon Dioxide Level 25 mmol/L (21-32) Anion Gap 11 (6-14) Blood Urea Nitrogen 48 mg/dL (7-20) Creatinine 1.8 mg/dL (0.6-1.0) Estimated GFR (Cockcroft-Gault) 29.9 Glucose Level 167 mg/dL (70-99) Calcium Level 8.6 mg/dL (8.5-10.1) Phosphorus Level 3.9 mg/dL (2.6-4.7) Magnesium Level 1.8 mg/dL (1.8-2.4) Albumin 2.6 g/dL (3.4-5.0) O2 Saturation 97 % (92-99) Arterial Blood pH 7.42 (7.35-7.45) Arterial Blood pCO2 at Patient Temp 37 mmHg (35-46) Arterial Blood pO2 at Patient Temp 105 mmHg (75-108) Arterial Blood HCO3 24 mmol/L (21-28) Arterial Blood Base Excess -1 mmol/L (-3-3) FiO2 40 Glucose (Fingerstick) 169 mg/dL (70-99) Problem List Problems Medical Problems: (1) Acute pancreatitis Status: Acute (2) Cholelithiasis Status: Acute DAVON SIMMS MD Jul 25, 2019 11:35
[2019-07-25] MEDS ORDERED: SURGICEL HEMOSTAT 4X8 EACH. ONE (11:55)
--- NOTE | 2019-07-25 12:00 | PDOC ---
Objective: Objective: Reviewed chart. Vital Signs: Vital Signs Date Time Temp Pulse Resp B/P (MAP) Pulse Ox O2 Delivery O2 Flow Rate FiO2 07/25/19 11:00 97.9 76 18 103/65 (78) 99 Ventilator 97.9 Labs: Laboratory Tests Test 07/24/19 18:09 07/24/19 23:55 07/25/19 05:26 07/25/19 05:45 Glucose (Fingerstick) 133 mg/dL 158 mg/dL 157 mg/dL Hemoglobin 7.8 g/dL Sodium Level 139 mmol/L Potassium Level 4.2 mmol/L Chloride Level 103 mmol/L Carbon Dioxide Level 25 mmol/L Anion Gap 11 Blood Urea Nitrogen 48 mg/dL Creatinine 1.8 mg/dL Estimated GFR (Cockcroft-Gault) 29.9 Glucose Level 167 mg/dL Calcium Level 8.6 mg/dL Phosphorus Level 3.9 mg/dL Magnesium Level 1.8 mg/dL Albumin 2.6 g/dL Test 07/25/19 07:40 07/25/19 11:21 O2 Saturation 97 % Arterial Blood pH 7.42 Arterial Blood pCO2 at Patient Temp 37 mmHg Arterial Blood pO2 at Patient Temp 105 mmHg Arterial Blood HCO3 24 mmol/L Arterial Blood Base Excess -1 mmol/L FiO2 40 Glucose (Fingerstick) 169 mg/dL BLOOD CULTURE Preliminary NO GROWTH AFTER 2 DAYS Imaging: CXR 07/24 IMPRESSION: 1. Increased moderate to large bilateral posteriorly layering pleural effusions with associated atelectasis. PE: none A/P: Gallstone pancreatitis, MOSF -- Out for tracheostomy, will follow. Hemodynamically unstable?: No Is patient in severe pain?: No Is NPO status required?: Yes CYNDEE FALCON Jul 25, 2019 12:00
--- NOTE | 2019-07-25 12:03 | NUR ---
SW following. Chart reviewed, pt still on a vent, getting trach today. SW will continue to follow.
--- NOTE | 2019-07-25 12:32 | PDOC ---
Infectious Disease Note Subjective: Subjective Sedated and intubated, afebrile last 48 hrs TPN Rectal tube Vital Signs: Vital Signs Vital Signs Date Time Temp Pulse Resp B/P (MAP) Pulse Ox O2 Delivery O2 Flow Rate FiO2 07/25/19 11:00 97.9 76 18 103/65 (78) 99 Ventilator 97.9 Physical Exam: PHYSICAL EXAM GENERAL: Orally intubated/sedated - generalized anasarca HEENT: Pupils equal, ETT, OGT NECK: Supple LUNGS: Diminished aeration bases HEART: S1, S2, regular ABDOMEN: Distended, hypoactive BS, Rectal tube in place : Lind EXTREMITIES: Generalized edema, no cyanosis - some mottling, [place] boots & SCDs bilaterally DERMATOLOGIC: Warm and dry. No generalized rash. CENTRAL NERVOUS SYSTEM: Sedated RIJ Temp HDC, RUE-PICC & LIJ Medications: Inpatient Meds: Current Medications Medications (Trade) Dose Ordered Sig/Yvon Start Time Stop Time Status Last Admin Dose Admin Acetaminophen (Tylenol Supp) 650 mg PRN Q6HRS PRN 07/12/19 10:30 07/12/19 10:37 650 MG Acetaminophen (Tylenol) 650 mg PRN Q6HRS PRN 07/09/19 03:36 07/14/19 07:35 650 MG Albumin Human 200 ml @ 200 mls/hr 1X ONCE 07/24/19 12:30 07/24/19 13:29 DC 07/24/19 13:34 200 MLS/HR Albuterol Sulfate (Ventolin Neb Soln) 2.5 mg 1X ONCE 07/05/19 22:30 07/05/19 22:31 DC 07/06/19 00:56 2.5 MG Alteplase, Recombinant (Cathflo For Central Catheter Clearance) 1 mg 1X ONCE 07/19/19 22:00 07/19/19 22:01 DC 07/19/19 22:05 1 MG Artificial Tears (Artificial Tears) 1 drop PRN Q1HR PRN 07/11/19 08:15 Atenolol (Tenormin) 100 mg DAILY 07/05/19 09:00 07/04/19 20:08 DC Atropine Sulfate (ATROPINE 0.5mg SYRINGE) 0.5 mg PRN Q5MIN PRN 07/21/19 08:15 Benzocaine (Hurricaine One) 1 spray 1X ONCE 07/08/19 14:30 07/08/19 14:31 DC 07/08/19 16:38 1 SPRAY Bupivacaine HCl/ Epinephrine Bitart (Sensorcain-Epi 0.5%-1:327123 Mpf) 30 ml STK-MED ONCE 07/25/19 11:00 07/25/19 11:01 DC 07/25/19 11:44 1 ML Calcium Carbonate/ Glycine (Tums) 500 mg PRN AFTMEALHC PRN 07/06/19 17:45 Calcium Chloride 1000 mg/Sodium Chloride 110 ml @ 220 mls/hr 1X ONCE 07/05/19 22:30 07/05/19 22:59 DC 07/05/19 22:11 220 MLS/HR Calcium Chloride 3000 mg/Sodium Chloride 1,030 ml @ 50 mls/hr [id number] 07/07/19 08:00 07/09/19 15:23 DC 07/09/19 02:17 50 MLS/HR Calcium Gluconate (Calcium Gluconate) 2,000 mg 1X ONCE 07/07/19 02:15 07/07/19 02:16 DC 07/07/19 02:19 2,000 MG Calcium Gluconate 1000 mg/Sodium Chloride 110 ml @ 220 mls/hr 1X ONCE 07/06/19 03:30 07/06/19 03:59 DC 07/06/19 03:21 220 MLS/HR Calcium Gluconate 2000 mg/Sodium Chloride 120 ml @ 220 mls/hr 1X ONCE 07/06/19 07:30 07/06/19 08:02 DC 07/06/19 09:05 220 MLS/HR Cefepime HCl (Maxipime) 2 gm Q12HR 07/13/19 09:00 07/25/19 08:36 2 GM Cellulose (Surgicel Fibrillar 1x2) 1 each STK-MED ONCE 07/25/19 11:00 07/25/19 11:01 DC Cellulose (Surgicel Hemostat 4x8) 1 each STK-MED ONCE 07/25/19 11:55 07/25/19 11:56 DC 07/25/19 11:44 1 EACH Daptomycin 500 mg/ Sodium Chloride 50 ml @ 100 mls/hr Q48H 07/13/19 08:30 07/25/19 08:35 100 MLS/HR Dexmedetomidine HCl 400 mcg/ Sodium Chloride 100 ml @ 0 mls/hr CONT PRN 07/21/19 08:15 07/25/19 09:19 27.8 MLS/HR Dextrose (Dextrose 50%-Water Syringe) 12.5 gm PRN Q15MIN PRN 07/04/19 09:30 Digoxin (Lanoxin) 125 mcg 1X ONCE 07/07/19 18:00 07/07/19 18:01 DC 07/07/19 17:10 125 MCG Diphenhydramine HCl (Benadryl) 25 mg 1X PRN PRN 07/24/19 12:30 07/25/19 12:29 DC Etomidate (Amidate) 8 mg 1X ONCE 07/11/19 08:30 07/11/19 08:31 DC 07/11/19 08:33 8 MG Fentanyl Citrate (Fentanyl 2ml Vial) 50 mcg PRN Q5MIN PRN 07/25/19 07:00 07/26/19 06:59 Furosemide (Lasix) 20 mg 1X ONCE 07/21/19 08:15 07/21/19 08:16 DC 07/21/19 08:19 20 MG Heparin Sodium (Porcine) (Heparin Sodium) 5,000 unit Q12HR 07/22/19 21:00 07/24/19 21:21 5,000 UNIT Hydromorphone HCl (Dilaudid) 1 mg PRN Q3HRS PRN 07/05/19 12:00 07/19/19 00:25 DC 07/11/19 05:13 1 MG Info (CONTRAST GIVEN -- Rx MONITORING) 1 each PRN DAILY PRN 07/18/19 11:45 07/20/19 11:44 DC Info (Icu Electrolyte Protocol) 1 ea CONT PRN PRN 07/17/19 13:15 Info (PHARMACY MONITORING -- do not chart) 1 each PRN DAILY PRN 07/24/19 12:30 Info (Tpn Per Pharmacy) 1 each PRN DAILY PRN 07/06/19 12:30 UNV Insulin Human Lispro (HumaLOG) 0-9 UNITS Q6HRS 07/04/19 09:30 07/25/19 11:23 4 UNITS Insulin Human Regular (HumuLIN R VIAL) 5 unit 1X ONCE 07/05/19 22:30 07/05/19 22:31 DC 07/05/19 22:14 5 UNIT Iohexol (Omnipaque 240 Mg/ml) 30 ml 1X ONCE 07/18/19 11:30 07/18/19 11:33 DC 07/18/19 11:30 30 ML Iohexol (Omnipaque 300 Mg/ml) 60 ml 1X ONCE 07/05/19 17:00 07/05/19 17:01 DC 07/05/19 17:20 60 ML Iohexol (Omnipaque 350 Mg/ml) 90 ml 1X ONCE 07/04/19 03:30 07/04/19 03:31 DC 07/04/19 03:25 90 ML Ketorolac Tromethamine (Toradol 30mg Vial) 30 mg 1X ONCE 07/04/19 03:00 07/04/19 03:01 DC 07/04/19 02:54 30 MG Lidocaine HCl (Buffered Lidocaine 1%) 6 ml 1X ONCE 07/21/19 09:00 07/21/19 09:06 DC 07/21/19 09:05 6 ML Lidocaine HCl (Glydo (Lidocaine) Jelly) 1 ramu 1X ONCE 07/08/19 14:30 07/08/19 14:31 DC 07/08/19 16:38 1 RAMU Lidocaine HCl (Xylocaine-Mpf 1% 2ml Vial) 2 ml PRN 1X PRN 07/25/19 07:00 07/26/19 06:59 Linezolid/Dextrose 300 ml @ 300 mls/hr Q12HR 07/08/19 20:00 07/15/19 07:50 DC 07/14/19 21:04 300 MLS/HR Lorazepam (Ativan Inj) 1 mg PRN Q4HRS PRN 07/07/19 09:00 07/11/19 00:34 1 MG Magnesium Sulfate 50 ml @ 25 mls/hr PRN DAILY PRN 07/24/19 09:15 Meropenem 1 gm/ Sodium Chloride 100 ml @ 200 mls/hr Q8HRS 07/05/19 20:00 07/06/19 08:48 DC 07/06/19 05:45 200 MLS/HR Meropenem 500 mg/ Sodium Chloride 50 ml @ 100 mls/hr Q6HRS 07/12/19 09:00 07/13/19 07:29 DC 07/13/19 06:00 100 MLS/HR Metoprolol Tartrate (Lopressor Vial) 5 mg Q6HRS 07/05/19 10:15 07/16/19 08:48 DC 07/14/19 00:12 5 MG Metronidazole 100 ml @ 100 mls/hr Q6HRS 07/11/19 08:30 07/25/19 10:40 100 MLS/HR Micafungin Sodium 100 mg/Dextrose 100 ml @ 100 mls/hr Q24H 07/11/19 09:00 07/25/19 08:36 100 MLS/HR Midazolam HCl (Versed) 5 mg 1X ONCE 07/11/19 08:30 07/11/19 08:31 DC Midazolam HCl 100 mg/Sodium Chloride 100 ml @ 7 mls/hr CONT PRN 07/16/19 16:00 07/25/19 00:40 7 MLS/HR Midazolam HCl 50 mg/Sodium Chloride 50 ml @ 0 mls/hr CONT PRN 07/11/19 08:15 07/16/19 15:59 DC 07/14/19 22:39 7 MLS/HR Morphine Sulfate (Morphine Sulfate) 2 mg PRN Q2HR PRN 07/04/19 05:00 07/05/19 14:15 DC 07/05/19 12:26 2 MG Multi-Ingred Cream/Lotion/Oil/ Oint (Artificial Tears Eye Ointment) 1 ramu PRN Q1HR PRN 07/13/19 17:30 07/22/19 11:05 1 RAMU Norepinephrine Bitartrate 8 mg/ Dextrose 258 ml @ 17.299 mls/ hr CONT PRN 07/05/19 15:30 07/24/19 21:18 1.73 MLS/HR Ondansetron HCl (Zofran) 4 mg PRN Q6HRS PRN 07/25/19 07:00 07/26/19 06:59 Pantoprazole Sodium (PROTONIX VIAL for IV PUSH) 40 mg DAILYAC 07/04/19 11:30 07/25/19 08:34 40 MG Piperacillin Sod/ Tazobactam Sod 4.5 gm/Sodium Chloride 100 ml @ 200 mls/hr 1X ONCE 07/04/19 06:00 07/04/19 06:29 DC 07/04/19 05:44 200 MLS/HR Potassium Chloride 15 meq/ Bicarbonate Dialysis Soln w/ out KCl 5,007.5 ml @ 1,000 mls/ hr Q5H1M 07/17/19 20:00 07/21/19 13:08 DC 07/20/19 18:14 1,000 MLS/HR Potassium Chloride 20 meq/ Bicarbonate Dialysis Soln w/ out KCl 5,010 ml @ 1,000 mls/hr Q5H1M 07/13/19 16:00 07/17/19 19:59 DC 07/17/19 14:54 1,000 MLS/HR Potassium Chloride/Water 100 ml @ 100 mls/hr Q1H 07/12/19 11:00 07/12/19 12:59 DC 07/12/19 12:12 100 MLS/HR Potassium Phosphate 20 mmol/ Sodium Chloride 106.6667 ml @ 51.667 m... 1X ONCE 07/13/19 13:00 07/13/19 15:03 DC 07/13/19 12:51 51.667 MLS/HR Prochlorperazine Edisylate (Compazine) 5 mg PACU PRN PRN 07/25/19 07:00 07/26/19 06:59 Propofol 20 ml @ As Directed STK-MED ONCE 07/25/19 11:07 07/25/19 11:07 DC Ringer's Solution 1,000 ml @ 30 mls/hr Q24H 07/25/19 07:00 07/25/19 18:59 Sodium Bicarbonate 50 meq/Sodium Chloride 1,050 ml @ 75 mls/hr Q14H 07/06/19 07:30 07/11/19 10:28 DC 07/10/19 21:10 75 MLS/HR Sodium Chloride (Normal Saline Flush) 10 ml 1X PRN PRN 07/22/19 07:30 07/23/19 07:29 DC Sodium Chloride 90 meq/Calcium Gluconate 10 meq/ Multivitamins 10 ml/Chromium/ Copper/Manganese/ Seleni/Zn 0.5 ml/ Total Parenteral Nutrition/Amino Acids/Dextrose/ Fat Emulsion Intravenous 1,512 ml @ 63 mls/hr TPN CONT 07/06/19 22:00 07/07/19 21:59 DC 07/06/19 22:06 63 MLS/HR Sodium Chloride 90 meq/Calcium Gluconate 10 meq/ Multivitamins 10 ml/Chromium/ Copper/Manganese/ Seleni/Zn 1 ml/ Total Parenteral Nutrition/Amino Acids/Dextrose/ Fat Emulsion Intravenous 55.005 ml @ 2.292 mls/hr TPN CONT 07/06/19 22:00 07/06/19 12:33 DC Sodium Chloride 90 meq/Magnesium Sulfate 10 meq/ Calcium Gluconate 20 meq/ Multivitamins 10 ml/Chromium/ Copper/Manganese/ Seleni/Zn 0.5 ml/ Total Parenteral Nutrition/Amino Acids/Dextrose/ Fat Emulsion Intravenous 1,512 ml @ 63 mls/hr TPN CONT 07/07/19 22:00 07/08/19 21:59 DC 07/07/19 22:25 63 MLS/HR Sodium Chloride 90 meq/Potassium Chloride 15 meq/ Potassium Phosphate 10 mmol/ Magnesium Sulfate 8 meq/Calcium Gluconate 15 meq/ Multivitamins 10 ml/Chromium/ Copper/Manganese/ Seleni/Zn 0.5 ml/ Insulin Human Regular 25 unit/ Total Parenteral Nutrition/Amino Acids/Dextrose/ Fat Emulsion Intravenous 1,400 ml @ 58.333 mls/ hr TPN CONT 07/24/19 22:00 07/25/19 21:59 07/24/19 21:20 58.333 MLS/HR Sodium Chloride 90 meq/Potassium Chloride 15 meq/ Potassium Phosphate 10 mmol/ Magnesium Sulfate 10 meq/Calcium Gluconate 20 meq/ Multivitamins 10 ml/Chromium/ Copper/Manganese/ Seleni/Zn 0.5 ml/ Total Parenteral Nutrition/Amino Acids/Dextrose/ Fat Emulsion Intravenous 1,400 ml @ 58.333 mls/ hr TPN CONT 07/11/19 22:00 07/12/19 21:59 DC 07/11/19 21:42 58.333 MLS/HR Sodium Chloride 90 meq/Potassium Chloride 15 meq/ Potassium Phosphate 10 mmol/ Magnesium Sulfate 12 meq/Calcium Gluconate 15 meq/ Multivitamins 10 ml/Chromium/ Copper/Manganese/ Seleni/Zn 0.5 ml/ Insulin Human Regular 25 unit/ Total Parenteral Nutrition/Amino Acids/Dextrose/ Fat Emulsion Intravenous 1,400 ml @ 58.333 mls/ hr TPN CONT 07/25/19 22:00 07/26/19 21:59 Sodium Chloride 90 meq/Potassium Chloride 15 meq/ Potassium Phosphate 15 mmol/ Magnesium Sulfate 10 meq/Calcium Gluconate 15 meq/ Multivitamins 10 ml/Chromium/ Copper/Manganese/ Seleni/Zn 0.5 ml/ Total Parenteral Nutrition/Amino Acids/Dextrose/ Fat Emulsion Intravenous 1,400 ml @ 58.333 mls/ hr TPN CONT 07/12/19 22:00 07/13/19 21:59 DC 07/12/19 22:17 58.333 MLS/HR Sodium Chloride 90 meq/Potassium Chloride 15 meq/ Potassium Phosphate 15 mmol/ Magnesium Sulfate 10 meq/Calcium Gluconate 20 meq/ Multivitamins 10 ml/Chromium/ Copper/Manganese/ Seleni/Zn 0.5 ml/ Total Parenteral Nutrition/Amino Acids/Dextrose/ Fat Emulsion Intravenous 1,200 ml @ 50 mls/hr TPN CONT 07/10/19 22:00 07/10/19 14:17 DC Sodium Chloride 90 meq/Potassium Chloride 15 meq/ Potassium Phosphate 18 mmol/ Magnesium Sulfate 8 meq/Calcium Gluconate 15 meq/ Multivitamins 10 ml/Chromium/ Copper/Manganese/ Seleni/Zn 0.5 ml/ Insulin Human Regular 10 unit/ Total Parenteral Nutrition/Amino Acids/Dextrose/ Fat Emulsion Intravenous 1,400 ml @ 58.333 mls/ hr TPN CONT 07/15/19 22:00 07/16/19 21:59 DC 07/15/19 21:43 58.333 MLS/HR Sodium Chloride 90 meq/Potassium Chloride 15 meq/ Potassium Phosphate 18 mmol/ Magnesium Sulfate 8 meq/Calcium Gluconate 15 meq/ Multivitamins 10 ml/Chromium/ Copper/Manganese/ Seleni/Zn 0.5 ml/ Insulin Human Regular 15 unit/ Total Parenteral Nutrition/Amino Acids/Dextrose/ Fat Emulsion Intravenous 1,400 ml @ 58.333 mls/ hr TPN CONT 07/18/19 22:00 07/19/19 21:59 DC 07/18/19 21:47 58.333 MLS/HR Sodium Chloride 90 meq/Potassium Chloride 15 meq/ Potassium Phosphate 18 mmol/ Magnesium Sulfate 8 meq/Calcium Gluconate 15 meq/ Multivitamins 10 ml/Chromium/ Copper/Manganese/ Seleni/Zn 0.5 ml/ Insulin Human Regular 20 unit/ Total Parenteral Nutrition/Amino Acids/Dextrose/ Fat Emulsion Intravenous 1,400 ml @ 58.333 mls/ hr TPN CONT 07/21/19 22:00 07/22/19 21:59 DC 07/21/19 22:45 58.333 MLS/HR Sodium Chloride 90 meq/Potassium Chloride 15 meq/ Potassium Phosphate 18 mmol/ Magnesium Sulfate 8 meq/Calcium Gluconate 15 meq/ Multivitamins 10 ml/Chromium/ Copper/Manganese/ Seleni/Zn 0.5 ml/ Total Parenteral Nutrition/Amino Acids/Dextrose/ Fat Emulsion Intravenous 1,400 ml @ 58.333 mls/ hr TPN CONT 07/14/19 22:00 07/15/19 21:59 DC 07/14/19 22:00 58.333 MLS/HR Succinylcholine Chloride (Anectine) 120 mg 1X ONCE 07/11/19 08:30 07/11/19 08:31 DC 07/11/19 08:34 120 MG Labs: Lab Laboratory Tests Test 07/24/19 18:09 07/24/19 23:55 07/25/19 05:26 07/25/19 05:45 Glucose (Fingerstick) 133 mg/dL (70-99) 158 mg/dL (70-99) 157 mg/dL (70-99) Hemoglobin 7.8 g/dL (12.0-15.5) Sodium Level 139 mmol/L (136-145) Potassium Level 4.2 mmol/L (3.5-5.1) Chloride Level 103 mmol/L (98-107) Carbon Dioxide Level 25 mmol/L (21-32) Anion Gap 11 (6-14) Blood Urea Nitrogen 48 mg/dL (7-20) Creatinine 1.8 mg/dL (0.6-1.0) Estimated GFR (Cockcroft-Gault) 29.9 Glucose Level 167 mg/dL (70-99) Calcium Level 8.6 mg/dL (8.5-10.1) Phosphorus Level 3.9 mg/dL (2.6-4.7) Magnesium Level 1.8 mg/dL (1.8-2.4) Albumin 2.6 g/dL (3.4-5.0) Test 07/25/19 07:40 07/25/19 11:21 O2 Saturation 97 % (92-99) Arterial Blood pH 7.42 (7.35-7.45) Arterial Blood pCO2 at Patient Temp 37 mmHg (35-46) Arterial Blood pO2 at Patient Temp 105 mmHg (75-108) Arterial Blood HCO3 24 mmol/L (21-28) Arterial Blood Base Excess -1 mmol/L (-3-3) FiO2 40 Glucose (Fingerstick) 169 mg/dL (70-99) Objective: Assessment: Acute pancreatitis, early developing necrosis Cholelithiasis Leucocytosis improving JUANA,Hyperkalemia, Metabolic acidosis on HD Acute hypoxic resp failure ,bilateral pleural effusion hypocalcemia Prediabetes HTN Plan: Plan of Care Continue Dapto/cefepime (07/12), Flagyl and micafungin (07/10) -Previously on Merrem, Zyvox f/u cults Maintain aspiration precautions COVID-19 neg, 07/13 C diff negative 07/10 DC Lt IJ D/w nursing Critically ill YUNIOR JONES MD Jul 25, 2019 12:32
[2019-07-25] MEDS ORDERED: SEVOFLURANE 61 TO 120 MINUTES. IH ONE (12:46)
--- NOTE | 2019-07-25 13:26 | RAD ---
Chest AP portable at 1247: Reason for examination: Confirm central line placement. Comparison is made to previous study dated 07/25/2019 at 0420: Tracheostomy tube present with the tip 3 cm above the shawanda. Right PICC line and right jugular hemodialysis catheter remain present and unchanged in position. Left central venous line is present with the tip at the proximal superior vena cava. NG tube is present with the tip below the hemidiaphragms. Heart and mediastinum are unchanged. There is no pneumothorax. There continues to be some discoid atelectasis at the right hilar region. There continue to be bilateral pleural effusions, right greater than left which appear to show some mild improvement. No acute bony abnormalities are seen. IMPRESSION: Tracheostomy tube now present. Left central venous catheter in the proximal superior vena cava. No pneumothorax evident. Continued presence of bilateral pleural effusions, right greater than left with some mild improvement. Discoid atelectasis at the right hilum is unchanged. Electronically signed by: Nicole Martin MD (07/25/2019 1:23 PM) [id number]
[2019-07-25] MEDS ORDERED: IV NORMAL SALINE 1000ML BAG 1,000 ML IV PRN ×2 (13:51)
[2019-07-25] MEDS ORDERED: DIALYSIS PATIENT. MC PRN (14:00)
[2019-07-25] MEDS ORDERED: ALBUMIN HUMAN 25% 200 ML IV PRN (14:00)
[2019-07-25] MEDS ORDERED: diphenhydrAMINE 50 MG/ML VIAL IV PRN ×2 (14:00)
--- NOTE | 2019-07-25 14:15 | NUR ---
pt returned from or after trachestomy placement by dr pappas and dr marino placed a new central line in left subclavian. chest xray confirmed placement of line. order received from dr marino to use line. tracheostomy site clean dry and intact. trach with sutures and a soft collar. og tube removed and a new right nare ng placed without difficulty. green-brown return via tube and auscultated in the left upper quadrant.
--- NOTE | 2019-07-25 14:40 | PDOC ---
Provider Note Provider Note Anesthesiology Requested to change out Left supraclavicular TLC. After sterile prep and drape, J-wire easily passed through old TLC, then after removal of old TLC a new catheter was easily passed over the J-wire and sutured in place. CXR pending to confirm placement. Danny Gibbons MD Hemodynamically unstable?: No Is patient in severe pain?: No Is NPO status required?: Yes ISH GIBBONS MD Jul 25, 2019 14:40
--- NOTE | 2019-07-25 14:41 | PDOC ---
PROGRESS NOTES Assessment Assessment Neurology Progress Note 07-22-19 Respiratory failure. Seizure. Metabolic encephalopathy. Fever 102.7 degree. Metabolic acidosis. Diffuse pulmonary infiltrate. Pleural effusion. Pancreatitis Gallstone. Leukocytosis. Electrolytes imbalances. Hyperglycemia. DM. HTN. HLD. Anemia. Obesity. RECOMMENDATIONS/PLAN: Continue life support in CCU at the present time. Keppra if has further seizures. Treat medical diseases. EEG last week: No seizure activity. OBJECTIVE: 07/21/19: No seizures reported over night. Past Medical History Cardiovascular: HTN, Hyperlipidemia Endocrine: Diabetes Family History Unobtainable. Social HistoryU not obtainable Allergies Coded Allergies: Codeine (Verified Allergy, Intermediate, rash, 07/04/19) ROS Unobtainable in unresponsive state. PHYSICAL EXAMINATION: General appearance in sub acute distress. HEENT: Normocephalic and nontraumatic. Eyes, nose, ears, and throat are unremarkable. Neck is supple. No lymphadenopathy. Cardiovascular: S1, S2. Pulmonary: On vent.. Abdomen: Bowel sounds are weak. Extremities: No rash, lesions. Edema noted in hands. NEUROLOGICAL EXAMINATION: Minimal responsiveness. On vent. Not oriented to time, place and person. PERRL. EOMI not elicited, CN: no acute focal findings. Muscle tone: within normal. Muscle strength: No movements to stimuli. DTR: 0-1 Plantar reflex: No response bilaterally Gait: not able to walk. Sensory exam: no response to stimuli.. Not able to access cerebellar signs. F-T-N test not performed due to unresponsiveness Objective Objective Vital Signs Date Time Temp Pulse Resp B/P (MAP) Pulse Ox O2 Delivery O2 Flow Rate FiO2 07/25/19 13:40 19 96 Ventilator 07/25/19 11:00 97.9 76 103/65 (78) 97.9 Intake and Output 07/25/19 07:00 Intake Total 2032.2 ml Output Total 687 ml Balance 1345.2 ml Intake Oral 0 ml IV Total 2032.2 ml Output Urine Total 287 ml Gastric Drainage Total 400 ml Vitals Signs Vitals VS - Last 72 Hours, by Label Date Time Temp Pulse Resp B/P (MAP) Pulse Ox O2 Delivery O2 Flow Rate FiO2 07/25/19 13:40 19 96 Ventilator 07/25/19 12:30 100 Ventilator 07/25/19 11:00 97.9 76 18 103/65 (78) 99 Ventilator 97.9 07/25/19 10:00 76 18 93/67 (76) 99 Ventilator 07/25/19 09:00 77 18 95/72 (80) 99 Ventilator 07/25/19 08:00 76 18 100/58 (72) 99 Ventilator 07/25/19 07:48 Mechanical Ventilator 07/25/19 07:39 100 Ventilator 07/25/19 07:00 97.7 77 18 104/65 (78) 100 Ventilator 97.7 07/25/19 06:26 18 99 Ventilator 07/25/19 06:00 78 18 115/72 (86) 98 Ventilator 07/25/19 05:40 18 100 Ventilator 07/25/19 05:00 79 18 96/53 (67) 100 Ventilator 07/25/19 04:45 100 Ventilator 07/25/19 04:00 98.4 79 18 88/54 (65) 100 Ventilator 98.4 07/25/19 04:00 Mechanical Ventilator 07/25/19 03:00 79 18 91/58 (69) 99 Ventilator 07/25/19 02:02 100 Ventilator 07/25/19 02:00 79 18 111/64 (80) 100 Ventilator 07/25/19 01:00 79 18 95/61 (72) 100 Ventilator 07/25/19 00:00 99.2 83 18 111/71 (84) 100 Ventilator 99.2 07/25/19 00:00 Mechanical Ventilator 07/24/19 23:27 100 Ventilator 07/24/19 23:00 85 18 124/83 (97) 99 Ventilator 07/24/19 22:09 24 98 Ventilator 20 22:00 87 18 100 Ventilator 20 21:25 17 100 Ventilator /20 21:00 86 18 98 Ventilator /20 20:26 100 Ventilator 20 20:00 Mechanical Ventilator 20 20:00 98.7 82 18 124/67 (86) 98 Ventilator 98.7 07/24/19 19:00 84 18 155/97 (116) 97 Ventilator 20 18:10 100 Ventilator 07/24/19 18:00 98.4 85 23 141/72 (95) 99 Ventilator 98.4 20 15:25 100 Ventilator 20 14:33 25 100 Ventilator 4/5/20 13:56 100 Ventilator 07/24/19 12:00 99.4 81 17 103/55 (71) 100 Ventilator 99.4 07/24/19 12:00 Mechanical Ventilator 07/24/19 11:35 100 Ventilator 07/24/19 11:00 80 18 95/57 (70) 100 Ventilator 07/24/19 10:00 80 17 93/57 (69) 99 Ventilator 07/24/19 09:00 80 25 103/51 (68) 99 Ventilator 07/24/19 08:00 99.5 79 18 102/59 (73) 99 Ventilator 99.5 07/24/19 08:00 Mechanical Ventilator 07/24/19 08:00 99 Ventilator 07/24/19 07:00 78 18 102/54 (70) 99 Ventilator Laboratory Laboratory Laboratory Tests Test 07/24/19 18:09 07/24/19 23:55 07/25/19 05:26 07/25/19 05:45 Glucose (Fingerstick) 133 mg/dL (70-99) 158 mg/dL (70-99) 157 mg/dL (70-99) Hemoglobin 7.8 g/dL (12.0-15.5) Sodium Level 139 mmol/L (136-145) Potassium Level 4.2 mmol/L (3.5-5.1) Chloride Level 103 mmol/L (98-107) Carbon Dioxide Level 25 mmol/L (21-32) Anion Gap 11 (6-14) Blood Urea Nitrogen 48 mg/dL (7-20) Creatinine 1.8 mg/dL (0.6-1.0) Estimated GFR (Cockcroft-Gault) 29.9 Glucose Level 167 mg/dL (70-99) Calcium Level 8.6 mg/dL (8.5-10.1) Phosphorus Level 3.9 mg/dL (2.6-4.7) Magnesium Level 1.8 mg/dL (1.8-2.4) Albumin 2.6 g/dL (3.4-5.0) Test 07/25/19 07:40 07/25/19 11:21 O2 Saturation 97 % (92-99) Arterial Blood pH 7.42 (7.35-7.45) Arterial Blood pCO2 at Patient Temp 37 mmHg (35-46) Arterial Blood pO2 at Patient Temp 105 mmHg (75-108) Arterial Blood HCO3 24 mmol/L (21-28) Arterial Blood Base Excess -1 mmol/L (-3-3) FiO2 40 Glucose (Fingerstick) 169 mg/dL (70-99) Microbiology 07/24/19 Blood Culture - Preliminary, Resulted NO GROWTH AFTER 1 DAY Medication Medications Current Medications Albumin Human 200 ml @ 200 mls/hr 1X PRN PRN IV Hypotension; Start 07/25/19 at 14:00; Stop 07/25/19 at 19:59 Bupivacaine HCl/ Epinephrine Bitart (Sensorcain-Epi 0.5%-1:520826 Mpf) 30 ml STK-MED ONCE .ROUTE Last administered on 07/25/19at 11:44; Start 07/25/19 at 11:00; Stop 07/25/19 at 11:01; Status DC Cellulose (Surgicel Fibrillar 1x2) 1 each STK-MED ONCE .ROUTE ; Start 07/25/19 at 11:00; Stop 07/25/19 at 11:01; Status DC Cellulose (Surgicel Hemostat 4x8) 1 each STK-MED ONCE .ROUTE Last administered on 07/25/19at 11:44; Start 07/25/19 at 11:55; Stop 07/25/19 at 11:56; Status DC Diphenhydramine HCl (Benadryl) 25 mg 1X PRN PRN IV ITCHING; Start 07/25/19 at 14:00; Stop 07/26/19 at 13:59 Diphenhydramine HCl (Benadryl) 25 mg 1X PRN PRN IV ITCHING; Start 07/25/19 at 14:00; Stop 07/26/19 at 13:59 Fentanyl Citrate (Fentanyl 2ml Vial) 25 mcg PRN Q5MIN PRN IV MILD PAIN 1-3; Start 07/25/19 at 07:00; Stop 07/26/19 at 06:59 Fentanyl Citrate (Fentanyl 2ml Vial) 50 mcg PRN Q5MIN PRN IV MODERATE TO SEVERE PAIN; Start 07/25/19 at 07:00; Stop 07/26/19 at 06:59 Info (PHARMACY MONITORING -- do not chart) 1 each PRN DAILY PRN MC SEE COMMENTS; Start 07/25/19 at 14:00 Lidocaine HCl (Xylocaine-Mpf 1% 2ml Vial) 2 ml PRN 1X PRN ID PRIOR TO IV START; Start 07/25/19 at 07:00; Stop 07/26/19 at 06:59 Ondansetron HCl (Zofran) 4 mg PRN Q6HRS PRN IV NAUSEA/VOMITING; Start 07/25/19 at 07:00; Stop 07/26/19 at 06:59 Prochlorperazine Edisylate (Compazine) 5 mg PACU PRN PRN IV NAUSEA, MRX1; Start 07/25/19 at 07:00; Stop 07/26/19 at 06:59 Propofol 20 ml @ As Directed STK-MED ONCE IV ; Start 07/25/19 at 11:07; Stop 07/25/19 at 11:07; Status DC Ringer's Solution 1,000 ml @ 30 mls/hr Q24H IV ; Start 07/25/19 at 07:00; Stop 07/25/19 at 18:59 Sevoflurane (Ultane) 60 ml STK-MED ONCE IH ; Start 07/25/19 at 12:46; Stop 07/25/19 at 12:46; Status DC Sodium Chloride 1,000 ml @ 400 mls/hr Q2H30M PRN IV PATENCY; Start 07/25/19 at 13:51; Stop 07/26/19 at 01:50 Sodium Chloride 1,000 ml @ 1,000 mls/hr Q1H PRN IV hypotension; Start 07/25/19 at 13:51; Stop 07/25/19 at 19:50 Sodium Chloride 90 meq/Potassium Chloride 15 meq/ Potassium Phosphate 10 mmol/ Magnesium Sulfate 8 meq/Calcium Gluconate 15 meq/ Multivitamins 10 ml/Chromium/ Copper/Manganese/ Seleni/Zn 0.5 ml/ Insulin Human Regular 25 unit/ Total Parenteral Nutrition/Amino Acids/Dextrose/ Fat Emulsion Intravenous 1,400 ml @ 58.333 mls/ hr TPN CONT IV Last administered on 07/24/19at 21:20; Start 07/24/19 at 22:00; Stop 07/25/19 at 21:59 Sodium Chloride 90 meq/Potassium Chloride 15 meq/ Potassium Phosphate 10 mmol/ Magnesium Sulfate 12 meq/Calcium Gluconate 15 meq/ Multivitamins 10 ml/Chromium/ Copper/Manganese/ Seleni/Zn 0.5 ml/ Insulin Human Regular 25 unit/ Total Parenteral Nutrition/Amino Acids/Dextrose/ Fat Emulsion Intravenous 1,400 ml @ 58.333 mls/ hr TPN CONT IV ; Start 07/25/19 at 22:00; Stop 07/26/19 at 21:59 Comment Review of Relevant I have reviewed the following items kolby (where applicable) has been applied. ZANDER ZUÑIGA MD Jul 25, 2019 14:41
--- NOTE | 2019-07-25 14:44 | PDOC ---
PROGRESS NOTES Assessment Assessment Respiratory failure. Seizure. Metabolic encephalopathy. Fever 102.7 degree. Metabolic acidosis. Diffuse pulmonary infiltrate. Pleural effusion. Pancreatitis Gallstone. Leukocytosis. Electrolytes imbalances. Hyperglycemia. DM. HTN. HLD. Anemia. Obesity. RECOMMENDATIONS/PLAN: Continue life support in PACU at the present time. Keppra if has further seizures. Treat medical diseases. EEG last week: No seizure activity. OBJECTIVE: 07/25/19: No seizures reported over night. Past Medical History Cardiovascular: HTN, Hyperlipidemia Endocrine: Diabetes Family History Unobtainable. Social HistoryU not obtainable Allergies Coded Allergies: Codeine (Verified Allergy, Intermediate, rash, 07/04/19) ROS Unobtainable in unresponsive state. PHYSICAL EXAMINATION: General appearance in sub acute distress. HEENT: Normocephalic and nontraumatic. Eyes, nose, ears, and throat are unremarkable. Neck is supple. No lymphadenopathy. Cardiovascular: S1, S2. Pulmonary: On vent.. Abdomen: Bowel sounds are weak. Extremities: No rash, lesions. Edema noted in hands. NEUROLOGICAL EXAMINATION: Minimal responsiveness. On vent via Trach. Not oriented to time, place and person. PERRL. EOMI not elicited, CN: no acute focal findings. Muscle tone: Decreased. Muscle strength: No movements to stimuli. DTR: 1 Plantar reflex: No response bilaterally Gait: not able to walk. Sensory exam: no response to stimuli.. Not able to access cerebellar signs. F-T-N test not performed due to unresponsiveness Objective Objective Vital Signs Date Time Temp Pulse Resp B/P (MAP) Pulse Ox O2 Delivery O2 Flow Rate FiO2 07/25/19 13:40 19 96 Ventilator 07/25/19 11:00 97.9 76 103/65 (78) 97.9 Intake and Output 07/25/19 07:00 Intake Total 2032.2 ml Output Total 687 ml Balance 1345.2 ml Intake Oral 0 ml IV Total 2032.2 ml Output Urine Total 287 ml Gastric Drainage Total 400 ml Vitals Signs Vitals VS - Last 72 Hours, by Label Date Time Temp Pulse Resp B/P (MAP) Pulse Ox O2 Delivery O2 Flow Rate FiO2 07/25/19 13:40 19 96 Ventilator 07/25/19 12:30 100 Ventilator 07/25/19 11:00 97.9 76 18 103/65 (78) 99 Ventilator 97.9 07/25/19 10:00 76 18 93/67 (76) 99 Ventilator 07/25/19 09:00 77 18 95/72 (80) 99 Ventilator 07/25/19 08:00 76 18 100/58 (72) 99 Ventilator 07/25/19 07:48 Mechanical Ventilator 07/25/19 07:39 100 Ventilator 07/25/19 07:00 97.7 77 18 104/65 (78) 100 Ventilator 97.7 07/25/19 06:26 18 99 Ventilator 07/25/19 06:00 78 18 115/72 (86) 98 Ventilator 07/25/19 05:40 18 100 Ventilator 07/25/19 05:00 79 18 96/53 (67) 100 Ventilator 07/25/19 04:45 100 Ventilator 07/25/19 04:00 98.4 79 18 88/54 (65) 100 Ventilator 98.4 07/25/19 04:00 Mechanical Ventilator 07/25/19 03:00 79 18 91/58 (69) 99 Ventilator 07/25/19 02:02 100 Ventilator 07/25/19 02:00 79 18 111/64 (80) 100 Ventilator 07/25/19 01:00 79 18 95/61 (72) 100 Ventilator 07/25/19 00:00 99.2 83 18 111/71 (84) 100 Ventilator 99.2 07/25/19 00:00 Mechanical Ventilator 07/24/19 23:27 100 Ventilator 07/24/19 23:00 85 18 124/83 (97) 99 Ventilator 07/24/19 22:09 24 98 Ventilator 07/24/19 22:00 87 18 100 Ventilator 20 21:25 17 100 Ventilator 20 21:00 86 18 98 Ventilator /20 20:26 100 Ventilator 20 20:00 Mechanical Ventilator 20 20:00 98.7 82 18 124/67 (86) 98 Ventilator 98.7 07/24/19 19:00 84 18 155/97 (116) 97 Ventilator /20 18:10 100 Ventilator 20 18:00 98.4 85 23 141/72 (95) 99 Ventilator 98.4 07/24/19 15:25 100 Ventilator 4/520 14:33 25 100 Ventilator 20 13:56 100 Ventilator 420 12:00 99.4 81 17 103/55 (71) 100 Ventilator 99.4 07/24/19 12:00 Mechanical Ventilator 07/24/19 11:35 100 Ventilator 07/24/19 11:00 80 18 95/57 (70) 100 Ventilator 07/24/19 10:00 80 17 93/57 (69) 99 Ventilator 07/24/19 09:00 80 25 103/51 (68) 99 Ventilator 07/24/19 08:00 99.5 79 18 102/59 (73) 99 Ventilator 99.5 07/24/19 08:00 Mechanical Ventilator 07/24/19 08:00 99 Ventilator 07/24/19 07:00 78 18 102/54 (70) 99 Ventilator Laboratory Laboratory Laboratory Tests Test 07/24/19 18:09 07/24/19 23:55 07/25/19 05:26 07/25/19 05:45 Glucose (Fingerstick) 133 mg/dL (70-99) 158 mg/dL (70-99) 157 mg/dL (70-99) Hemoglobin 7.8 g/dL (12.0-15.5) Sodium Level 139 mmol/L (136-145) Potassium Level 4.2 mmol/L (3.5-5.1) Chloride Level 103 mmol/L (98-107) Carbon Dioxide Level 25 mmol/L (21-32) Anion Gap 11 (6-14) Blood Urea Nitrogen 48 mg/dL (7-20) Creatinine 1.8 mg/dL (0.6-1.0) Estimated GFR (Cockcroft-Gault) 29.9 Glucose Level 167 mg/dL (70-99) Calcium Level 8.6 mg/dL (8.5-10.1) Phosphorus Level 3.9 mg/dL (2.6-4.7) Magnesium Level 1.8 mg/dL (1.8-2.4) Albumin 2.6 g/dL (3.4-5.0) Test 07/25/19 07:40 07/25/19 11:21 O2 Saturation 97 % (92-99) Arterial Blood pH 7.42 (7.35-7.45) Arterial Blood pCO2 at Patient Temp 37 mmHg (35-46) Arterial Blood pO2 at Patient Temp 105 mmHg (75-108) Arterial Blood HCO3 24 mmol/L (21-28) Arterial Blood Base Excess -1 mmol/L (-3-3) FiO2 40 Glucose (Fingerstick) 169 mg/dL (70-99) Microbiology 07/24/19 Blood Culture - Preliminary, Resulted NO GROWTH AFTER 1 DAY Medication Medications Current Medications Albumin Human 200 ml @ 200 mls/hr 1X PRN PRN IV Hypotension; Start 07/25/19 at 14:00; Stop 07/25/19 at 19:59 Bupivacaine HCl/ Epinephrine Bitart (Sensorcain-Epi 0.5%-1:956256 Mpf) 30 ml STK-MED ONCE .ROUTE Last administered on 07/25/19at 11:44; Start 07/25/19 at 11:00; Stop 07/25/19 at 11:01; Status DC Cellulose (Surgicel Fibrillar 1x2) 1 each STK-MED ONCE .ROUTE ; Start 07/25/19 at 11:00; Stop 07/25/19 at 11:01; Status DC Cellulose (Surgicel Hemostat 4x8) 1 each STK-MED ONCE .ROUTE Last administered on 07/25/19at 11:44; Start 07/25/19 at 11:55; Stop 07/25/19 at 11:56; Status DC Diphenhydramine HCl (Benadryl) 25 mg 1X PRN PRN IV ITCHING; Start 07/25/19 at 14:00; Stop 07/26/19 at 13:59 Diphenhydramine HCl (Benadryl) 25 mg 1X PRN PRN IV ITCHING; Start 07/25/19 at 14:00; Stop 07/26/19 at 13:59 Fentanyl Citrate (Fentanyl 2ml Vial) 25 mcg PRN Q5MIN PRN IV MILD PAIN 1-3; Start 07/25/19 at 07:00; Stop 07/26/19 at 06:59 Fentanyl Citrate (Fentanyl 2ml Vial) 50 mcg PRN Q5MIN PRN IV MODERATE TO SEVERE PAIN; Start 07/25/19 at 07:00; Stop 07/26/19 at 06:59 Info (PHARMACY MONITORING -- do not chart) 1 each PRN DAILY PRN MC SEE COMMENTS; Start 07/25/19 at 14:00 Lidocaine HCl (Xylocaine-Mpf 1% 2ml Vial) 2 ml PRN 1X PRN ID PRIOR TO IV START; Start 07/25/19 at 07:00; Stop 07/26/19 at 06:59 Ondansetron HCl (Zofran) 4 mg PRN Q6HRS PRN IV NAUSEA/VOMITING; Start 07/25/19 at 07:00; Stop 07/26/19 at 06:59 Prochlorperazine Edisylate (Compazine) 5 mg PACU PRN PRN IV NAUSEA, MRX1; Start 07/25/19 at 07:00; Stop 07/26/19 at 06:59 Propofol 20 ml @ As Directed STK-MED ONCE IV ; Start 07/25/19 at 11:07; Stop 07/25/19 at 11:07; Status DC Ringer's Solution 1,000 ml @ 30 mls/hr Q24H IV ; Start 07/25/19 at 07:00; Stop 07/25/19 at 18:59 Sevoflurane (Ultane) 60 ml STK-MED ONCE IH ; Start 07/25/19 at 12:46; Stop 07/25/19 at 12:46; Status DC Sodium Chloride 1,000 ml @ 400 mls/hr Q2H30M PRN IV PATENCY; Start 07/25/19 at 13:51; Stop 07/26/19 at 01:50 Sodium Chloride 1,000 ml @ 1,000 mls/hr Q1H PRN IV hypotension; Start 07/25/19 at 13:51; Stop 07/25/19 at 19:50 Sodium Chloride 90 meq/Potassium Chloride 15 meq/ Potassium Phosphate 10 mmol/ Magnesium Sulfate 8 meq/Calcium Gluconate 15 meq/ Multivitamins 10 ml/Chromium/ Copper/Manganese/ Seleni/Zn 0.5 ml/ Insulin Human Regular 25 unit/ Total Parenteral Nutrition/Amino Acids/Dextrose/ Fat Emulsion Intravenous 1,400 ml @ 58.333 mls/ hr TPN CONT IV Last administered on 07/24/19at 21:20; Start 07/24/19 at 22:00; Stop 07/25/19 at 21:59 Sodium Chloride 90 meq/Potassium Chloride 15 meq/ Potassium Phosphate 10 mmol/ Magnesium Sulfate 12 meq/Calcium Gluconate 15 meq/ Multivitamins 10 ml/Chromium/ Copper/Manganese/ Seleni/Zn 0.5 ml/ Insulin Human Regular 25 unit/ Total Parenteral Nutrition/Amino Acids/Dextrose/ Fat Emulsion Intravenous 1,400 ml @ 58.333 mls/ hr TPN CONT IV ; Start 07/25/19 at 22:00; Stop 07/26/19 at 21:59 Comment Review of Relevant I have reviewed the following items kolby (where applicable) has been applied. ZANDER ZUÑIGA MD Jul 25, 2019 14:44
--- NOTE | 2019-07-25 18:17 | PDOC4 ---
OPERATIVE NOTE Date: Date: Jul 25, 2019 Pre-Op Diagnosis: Respiratory failure Post-Op Diagnosis: same Procedure Performed: Tracheostomy placement (cuffed 6 shiley) Surgeon: Renzo Simms Anesthesia Type: GETA plus local Blood Loss: minimal Specimans Obtained: none Findings: normal anatomy Complications: none Operative Note: After obtaining informed consent, patient was taken to OR, induced under GETA and prepped in the usual fashion over anterior neck. Vertical incision was made with cautery. 3 0 prolene placed in 1st tracheal ring and secured superiorly externally with steristrips. 2nd tracheal ring was entered sharply with 15 blade. 6 shiley trach introduced under direct vision. End tidal CO2 detected and patient was successfully oxygenated and ventilated via tracheostomy. Wound packed with surgicel. Tracheostomy secured with 3 0 nylon and trach collar. Patient tolerated procedure well and sent to PACU in stable condition. All counts correct. Wound class is 4. DAVON SIMMS MD Jul 25, 2019 18:17
--- NOTE | 2019-07-25 18:45 | NUR ---
pt returned to pacu-icu after dialysis. 4.7 kg removed off of pt. pt tolerated well with levophed infusing. levophed to be titrated post dialysis.
[2019-07-25] MEDS ORDERED: TOTAL PARENTERAL NUTRITION IV SCH ×11 (22:00)
[2019-07-25] MEDS ORDERED: [UNRECOGNIZED DRUG - OTHER] IV SCH ×11 (22:00)
[2019-07-25] MEDS ORDERED: DEXTROSE 70% IV SCH ×11 (22:00)
[2019-07-25] MEDS ORDERED: AMINO ACID IV SCH ×11 (22:00)
[2019-07-26] VITALS (21 sets, daily range): BP systolic 99–156; BP diastolic 54–92
[2019-07-26] MEDS: INSULIN LISPRO 300 UNITS/3 ML VIAL. SQ SCH ×5 (00:30→23:41)
[2019-07-26] MEDS: MIDAZOLAM HCL 100 MG in IV NORMAL SALINE 100ML 100 ML IV PRN ×2 (02:21→13:26)
[2019-07-26] MEDS: DEXMEDETOMIDINE 400 MCG in IV NORMAL SALINE 100ML 96 ML IV PRN ×6 (03:00→21:17)
[2019-07-26 07:02] LABS: HEMATOCRIT 24.9 % (36.0-47.0); RED BLOOD COUNT 2.5 x10^6/uL (3.50-5.40); RED CELL DISTRIBUTION WIDTH 18.9 % (11.5-14.5)
[2019-07-26 07:17] LABS: ALBUMIN 2.9 g/dL (3.4-5.0); CALCIUM 8.9 mg/dL (8.5-10.1); CREATININE 2.3 mg/dL (0.6-1.0); GFR 22.5; PHOSPHORUS 5.8 mg/dL (2.6-4.7); POTASSIUM 4.6 mmol/L (3.5-5.1)
[2019-07-26 08:34] LABS: BASE EXCESS ABG -5 mmol/L (-3-3); HCO3 ABG 22 mmol/L (21-28); PCO2 ABG 45 mmHg (35-46); PO2 ABG 95 mmHg (75-108); SAT O2 ABG 96 % (92-99)
[2019-07-26 08:40] LABS: FIO2 ABG 40
--- NOTE | 2019-07-26 08:48 | RAD ---
CHEST AP ONLY History: Pleural effusions. Comparison: July 25, 2019 Findings: Moderate layering right pleural effusion. Small layering left pleural effusion. Diffuse interstitial thickening and bibasilar consolidations. Stable tracheostomy tube, enteric tube, right IJ central line, right PICC and left-sided central line. Impression: 1. Moderate to large right and small left layering pleural effusions. 2. Diffuse interstitial thickening with bibasilar consolidations, unchanged. Electronically signed by: Sukhdev Sadler DO (07/26/2019 8:46 AM) [id number]
--- NOTE | 2019-07-26 09:15 | PDOC ---
Infectious Disease Note Subjective: Subjective Sedated and intubated, remains afebrile TPN Rectal tube Vital Signs: Vital Signs Vital Signs Date Time Temp Pulse Resp B/P (MAP) Pulse Ox O2 Delivery O2 Flow Rate FiO2 07/26/19 07:49 99 Ventilator 07/26/19 07:00 86 18 112/68 (83) 07/26/19 04:00 97.4 97.4 Physical Exam: PHYSICAL EXAM GENERAL: Orally intubated/sedated - generalized anasarca HEENT: Pupils equal, ETT, dobhoff + NECK: Supple LUNGS: Diminished aeration bases HEART: S1, S2, regular ABDOMEN: Distended, hypoactive BS, Rectal tube in place : Lind EXTREMITIES: Generalized edema, no cyanosis - some mottling, Rooke boots & SCDs bilaterally DERMATOLOGIC: Warm and dry. No generalized rash. CENTRAL NERVOUS SYSTEM: Sedated RIJ Temp HDC, RUE-PICC Lt IJ removed 07/25 Chestwall line present Medications: Inpatient Meds: Current Medications Medications (Trade) Dose Ordered Sig/Yvon Start Time Stop Time Status Last Admin Dose Admin Acetaminophen (Tylenol Supp) 650 mg PRN Q6HRS PRN 07/12/19 10:30 07/12/19 10:37 650 MG Acetaminophen (Tylenol) 650 mg PRN Q6HRS PRN 07/09/19 03:36 07/14/19 07:35 650 MG Albumin Human 200 ml @ 200 mls/hr 1X PRN PRN 07/25/19 14:00 07/25/19 19:59 DC 07/25/19 14:51 200 MLS/HR Albuterol Sulfate (Ventolin Neb Soln) 2.5 mg 1X ONCE 07/05/19 22:30 07/05/19 22:31 DC 07/06/19 00:56 2.5 MG Alteplase, Recombinant (Cathflo For Central Catheter Clearance) 1 mg 1X ONCE 07/19/19 22:00 07/19/19 22:01 DC 07/19/19 22:05 1 MG Artificial Tears (Artificial Tears) 1 drop PRN Q1HR PRN 07/11/19 08:15 Atenolol (Tenormin) 100 mg DAILY 07/05/19 09:00 07/04/19 20:08 DC Atropine Sulfate (ATROPINE 0.5mg SYRINGE) 0.5 mg PRN Q5MIN PRN 07/21/19 08:15 Benzocaine (Hurricaine One) 1 spray 1X ONCE 07/08/19 14:30 07/08/19 14:31 DC 07/08/19 16:38 1 SPRAY Bupivacaine HCl/ Epinephrine Bitart (Sensorcain-Epi 0.5%-1:475606 Mpf) 30 ml STK-MED ONCE 07/25/19 11:00 07/25/19 11:01 DC 07/25/19 11:44 1 ML Calcium Carbonate/ Glycine (Tums) 500 mg PRN AFTMEALHC PRN 07/06/19 17:45 Calcium Chloride 1000 mg/Sodium Chloride 110 ml @ 220 mls/hr 1X ONCE 07/05/19 22:30 07/05/19 22:59 DC 07/05/19 22:11 220 MLS/HR Calcium Chloride 3000 mg/Sodium Chloride 1,030 ml @ 50 mls/hr [id number] 07/07/19 08:00 07/09/19 15:23 DC 07/09/19 02:17 50 MLS/HR Calcium Gluconate (Calcium Gluconate) 2,000 mg 1X ONCE 07/07/19 02:15 07/07/19 02:16 DC 07/07/19 02:19 2,000 MG Calcium Gluconate 1000 mg/Sodium Chloride 110 ml @ 220 mls/hr 1X ONCE 07/06/19 03:30 07/06/19 03:59 DC 07/06/19 03:21 220 MLS/HR Calcium Gluconate 2000 mg/Sodium Chloride 120 ml @ 220 mls/hr 1X ONCE 07/06/19 07:30 07/06/19 08:02 DC 07/06/19 09:05 220 MLS/HR Cefepime HCl (Maxipime) 2 gm Q12HR 07/13/19 09:00 07/25/19 21:47 2 GM Cellulose (Surgicel Fibrillar 1x2) 1 each STK-MED ONCE 07/25/19 11:00 07/25/19 11:01 DC Cellulose (Surgicel Hemostat 4x8) 1 each STK-MED ONCE 07/25/19 11:55 07/25/19 11:56 DC 07/25/19 11:44 1 EACH Daptomycin 500 mg/ Sodium Chloride 50 ml @ 100 mls/hr Q48H 07/13/19 08:30 07/25/19 08:35 100 MLS/HR Dexmedetomidine HCl 400 mcg/ Sodium Chloride 100 ml @ 0 mls/hr CONT PRN 07/21/19 08:15 07/26/19 06:53 27.8 MLS/HR Dextrose (Dextrose 50%-Water Syringe) 12.5 gm PRN Q15MIN PRN 07/04/19 09:30 Digoxin (Lanoxin) 125 mcg 1X ONCE 07/07/19 18:00 07/07/19 18:01 DC 07/07/19 17:10 125 MCG Diphenhydramine HCl (Benadryl) 25 mg 1X PRN PRN 07/25/19 14:00 07/26/19 13:59 Etomidate (Amidate) 8 mg 1X ONCE 07/11/19 08:30 07/11/19 08:31 DC 07/11/19 08:33 8 MG Fentanyl Citrate (Fentanyl 2ml Vial) 50 mcg PRN Q5MIN PRN 07/25/19 07:00 07/26/19 06:59 DC Furosemide (Lasix) 20 mg 1X ONCE 07/21/19 08:15 07/21/19 08:16 DC 07/21/19 08:19 20 MG Heparin Sodium (Porcine) (Heparin Sodium) 5,000 unit Q12HR 07/22/19 21:00 07/25/19 21:48 5,000 UNIT Hydromorphone HCl (Dilaudid) 1 mg PRN Q3HRS PRN 07/05/19 12:00 07/19/19 00:25 DC 07/11/19 05:13 1 MG Info (CONTRAST GIVEN -- Rx MONITORING) 1 each PRN DAILY PRN 07/18/19 11:45 07/20/19 11:44 DC Info (Icu Electrolyte Protocol) 1 ea CONT PRN PRN 07/17/19 13:15 Info (PHARMACY MONITORING -- do not chart) 1 each PRN DAILY PRN 07/25/19 14:00 Info (Tpn Per Pharmacy) 1 each PRN DAILY PRN 07/06/19 12:30 UNV Insulin Human Lispro (HumaLOG) 0-9 UNITS Q6HRS 07/04/19 09:30 07/26/19 00:30 4 UNITS Insulin Human Regular (HumuLIN R VIAL) 5 unit 1X ONCE 07/05/19 22:30 07/05/19 22:31 DC 07/05/19 22:14 5 UNIT Iohexol (Omnipaque 240 Mg/ml) 30 ml 1X ONCE 07/18/19 11:30 07/18/19 11:33 DC 07/18/19 11:30 30 ML Iohexol (Omnipaque 300 Mg/ml) 60 ml 1X ONCE 07/05/19 17:00 07/05/19 17:01 DC 07/05/19 17:20 60 ML Iohexol (Omnipaque 350 Mg/ml) 90 ml 1X ONCE 07/04/19 03:30 07/04/19 03:31 DC 07/04/19 03:25 90 ML Ketorolac Tromethamine (Toradol 30mg Vial) 30 mg 1X ONCE 07/04/19 03:00 07/04/19 03:01 DC 07/04/19 02:54 30 MG Lidocaine HCl (Buffered Lidocaine 1%) 6 ml 1X ONCE 07/21/19 09:00 07/21/19 09:06 DC 07/21/19 09:05 6 ML Lidocaine HCl (Glydo (Lidocaine) Jelly) 1 ramu 1X ONCE 07/08/19 14:30 07/08/19 14:31 DC 07/08/19 16:38 1 RAMU Lidocaine HCl (Xylocaine-Mpf 1% 2ml Vial) 2 ml PRN 1X PRN 07/25/19 07:00 07/26/19 06:59 DC Linezolid/Dextrose 300 ml @ 300 mls/hr Q12HR 07/08/19 20:00 07/15/19 07:50 DC 07/14/19 21:04 300 MLS/HR Lorazepam (Ativan Inj) 1 mg PRN Q4HRS PRN 07/07/19 09:00 07/11/19 00:34 1 MG Magnesium Sulfate 50 ml @ 25 mls/hr PRN DAILY PRN 07/24/19 09:15 Meropenem 1 gm/ Sodium Chloride 100 ml @ 200 mls/hr Q8HRS 07/05/19 20:00 07/06/19 08:48 DC 07/06/19 05:45 200 MLS/HR Meropenem 500 mg/ Sodium Chloride 50 ml @ 100 mls/hr Q6HRS 07/12/19 09:00 07/13/19 07:29 DC 07/13/19 06:00 100 MLS/HR Metoprolol Tartrate (Lopressor Vial) 5 mg Q6HRS 07/05/19 10:15 07/16/19 08:48 DC 07/14/19 00:12 5 MG Metronidazole 100 ml @ 100 mls/hr Q6HRS 07/11/19 08:30 07/26/19 00:32 100 MLS/HR Micafungin Sodium 100 mg/Dextrose 100 ml @ 100 mls/hr Q24H 07/11/19 09:00 07/25/19 08:36 100 MLS/HR Midazolam HCl (Versed) 5 mg 1X ONCE 07/11/19 08:30 07/11/19 08:31 DC Midazolam HCl 100 mg/Sodium Chloride 100 ml @ 7 mls/hr CONT PRN 07/16/19 16:00 07/26/19 02:21 7 MLS/HR Midazolam HCl 50 mg/Sodium Chloride 50 ml @ 0 mls/hr CONT PRN 07/11/19 08:15 07/16/19 15:59 DC 07/14/19 22:39 7 MLS/HR Morphine Sulfate (Morphine Sulfate) 2 mg PRN Q2HR PRN 07/04/19 05:00 07/05/19 14:15 DC 07/05/19 12:26 2 MG Multi-Ingred Cream/Lotion/Oil/ Oint (Artificial Tears Eye Ointment) 1 ramu PRN Q1HR PRN 07/13/19 17:30 07/22/19 11:05 1 RAMU Norepinephrine Bitartrate 8 mg/ Dextrose 258 ml @ 17.299 mls/ hr CONT PRN 07/05/19 15:30 07/24/19 21:18 1.73 MLS/HR Ondansetron HCl (Zofran) 4 mg PRN Q6HRS PRN 07/25/19 07:00 07/26/19 06:59 DC Pantoprazole Sodium (PROTONIX VIAL for IV PUSH) 40 mg DAILYAC 07/04/19 11:30 07/25/19 08:34 40 MG Piperacillin Sod/ Tazobactam Sod 4.5 gm/Sodium Chloride 100 ml @ 200 mls/hr 1X ONCE 07/04/19 06:00 07/04/19 06:29 DC 07/04/19 05:44 200 MLS/HR Potassium Chloride 15 meq/ Bicarbonate Dialysis Soln w/ out KCl 5,007.5 ml @ 1,000 mls/ hr Q5H1M 07/17/19 20:00 07/21/19 13:08 DC 07/20/19 18:14 1,000 MLS/HR Potassium Chloride 20 meq/ Bicarbonate Dialysis Soln w/ out KCl 5,010 ml @ 1,000 mls/hr Q5H1M 07/13/19 16:00 07/17/19 19:59 DC 07/17/19 14:54 1,000 MLS/HR Potassium Chloride/Water 100 ml @ 100 mls/hr Q1H 07/12/19 11:00 07/12/19 12:59 DC 07/12/19 12:12 100 MLS/HR Potassium Phosphate 20 mmol/ Sodium Chloride 106.6667 ml @ 51.667 m... 1X ONCE 07/13/19 13:00 07/13/19 15:03 DC 07/13/19 12:51 51.667 MLS/HR Prochlorperazine Edisylate (Compazine) 5 mg PACU PRN PRN 07/25/19 07:00 07/26/19 06:59 DC Propofol 20 ml @ As Directed STK-MED ONCE 07/25/19 11:07 07/25/19 11:07 DC Ringer's Solution 1,000 ml @ 30 mls/hr Q24H 07/25/19 07:00 07/25/19 18:59 DC Sevoflurane (Ultane) 60 ml STK-MED ONCE 07/25/19 12:46 07/25/19 12:46 DC Sodium Bicarbonate 50 meq/Sodium Chloride 1,050 ml @ 75 mls/hr Q14H 07/06/19 07:30 07/11/19 10:28 DC 07/10/19 21:10 75 MLS/HR Sodium Chloride 1,000 ml @ 400 mls/hr Q2H30M PRN 07/25/19 13:51 07/26/19 01:50 DC Sodium Chloride (Normal Saline Flush) 10 ml 1X PRN PRN 07/22/19 07:30 07/23/19 07:29 DC Sodium Chloride 90 meq/Calcium Gluconate 10 meq/ Multivitamins 10 ml/Chromium/ Copper/Manganese/ Seleni/Zn 0.5 ml/ Total Parenteral Nutrition/Amino Acids/Dextrose/ Fat Emulsion Intravenous 1,512 ml @ 63 mls/hr TPN CONT 07/06/19 22:00 07/07/19 21:59 DC 07/06/19 22:06 63 MLS/HR Sodium Chloride 90 meq/Calcium Gluconate 10 meq/ Multivitamins 10 ml/Chromium/ Copper/Manganese/ Seleni/Zn 1 ml/ Total Parenteral Nutrition/Amino Acids/Dextrose/ Fat Emulsion Intravenous 55.005 ml @ 2.292 mls/hr TPN CONT 07/06/19 22:00 07/06/19 12:33 DC Sodium Chloride 90 meq/Magnesium Sulfate 10 meq/ Calcium Gluconate 20 meq/ Multivitamins 10 ml/Chromium/ Copper/Manganese/ Seleni/Zn 0.5 ml/ Total Parenteral Nutrition/Amino Acids/Dextrose/ Fat Emulsion Intravenous 1,512 ml @ 63 mls/hr TPN CONT 07/07/19 22:00 07/08/19 21:59 DC 07/07/19 22:25 63 MLS/HR Sodium Chloride 90 meq/Potassium Chloride 15 meq/ Potassium Phosphate 10 mmol/ Magnesium Sulfate 8 meq/Calcium Gluconate 15 meq/ Multivitamins 10 ml/Chromium/ Copper/Manganese/ Seleni/Zn 0.5 ml/ Insulin Human Regular 25 unit/ Total Parenteral Nutrition/Amino Acids/Dextrose/ Fat Emulsion Intravenous 1,400 ml @ 58.333 mls/ hr TPN CONT 07/24/19 22:00 07/25/19 21:59 DC 07/24/19 21:20 58.333 MLS/HR Sodium Chloride 90 meq/Potassium Chloride 15 meq/ Potassium Phosphate 10 mmol/ Magnesium Sulfate 10 meq/Calcium Gluconate 20 meq/ Multivitamins 10 ml/Chromium/ Copper/Manganese/ Seleni/Zn 0.5 ml/ Total Parenteral Nutrition/Amino Acids/Dextrose/ Fat Emulsion Intravenous 1,400 ml @ 58.333 mls/ hr TPN CONT 07/11/19 22:00 07/12/19 21:59 DC 07/11/19 21:42 58.333 MLS/HR Sodium Chloride 90 meq/Potassium Chloride 15 meq/ Potassium Phosphate 10 mmol/ Magnesium Sulfate 12 meq/Calcium Gluconate 15 meq/ Multivitamins 10 ml/Chromium/ Copper/Manganese/ Seleni/Zn 0.5 ml/ Insulin Human Regular 25 unit/ Total Parenteral Nutrition/Amino Acids/Dextrose/ Fat Emulsion Intravenous 1,400 ml @ 58.333 mls/ hr TPN CONT 07/25/19 22:00 07/26/19 21:59 07/25/19 22:24 58.333 MLS/HR Sodium Chloride 90 meq/Potassium Chloride 15 meq/ Potassium Phosphate 15 mmol/ Magnesium Sulfate 10 meq/Calcium Gluconate 15 meq/ Multivitamins 10 ml/Chromium/ Copper/Manganese/ Seleni/Zn 0.5 ml/ Total Parenteral Nutrition/Amino Acids/Dextrose/ Fat Emulsion Intravenous 1,400 ml @ 58.333 mls/ hr TPN CONT 07/12/19 22:00 07/13/19 21:59 DC 07/12/19 22:17 58.333 MLS/HR Sodium Chloride 90 meq/Potassium Chloride 15 meq/ Potassium Phosphate 15 mmol/ Magnesium Sulfate 10 meq/Calcium Gluconate 20 meq/ Multivitamins 10 ml/Chromium/ Copper/Manganese/ Seleni/Zn 0.5 ml/ Total Parenteral Nutrition/Amino Acids/Dextrose/ Fat Emulsion Intravenous 1,200 ml @ 50 mls/hr TPN CONT 07/10/19 22:00 07/10/19 14:17 DC Sodium Chloride 90 meq/Potassium Chloride 15 meq/ Potassium Phosphate 18 mmol/ Magnesium Sulfate 8 meq/Calcium Gluconate 15 meq/ Multivitamins 10 ml/Chromium/ Copper/Manganese/ Seleni/Zn 0.5 ml/ Insulin Human Regular 10 unit/ Total Parenteral Nutrition/Amino Acids/Dextrose/ Fat Emulsion Intravenous 1,400 ml @ 58.333 mls/ hr TPN CONT 07/15/19 22:00 07/16/19 21:59 DC 07/15/19 21:43 58.333 MLS/HR Sodium Chloride 90 meq/Potassium Chloride 15 meq/ Potassium Phosphate 18 mmol/ Magnesium Sulfate 8 meq/Calcium Gluconate 15 meq/ Multivitamins 10 ml/Chromium/ Copper/Manganese/ Seleni/Zn 0.5 ml/ Insulin Human Regular 15 unit/ Total Parenteral Nutrition/Amino Acids/Dextrose/ Fat Emulsion Intravenous 1,400 ml @ 58.333 mls/ hr TPN CONT 07/18/19 22:00 07/19/19 21:59 DC 07/18/19 21:47 58.333 MLS/HR Sodium Chloride 90 meq/Potassium Chloride 15 meq/ Potassium Phosphate 18 mmol/ Magnesium Sulfate 8 meq/Calcium Gluconate 15 meq/ Multivitamins 10 ml/Chromium/ Copper/Manganese/ Seleni/Zn 0.5 ml/ Insulin Human Regular 20 unit/ Total Parenteral Nutrition/Amino Acids/Dextrose/ Fat Emulsion Intravenous 1,400 ml @ 58.333 mls/ hr TPN CONT 07/21/19 22:00 07/22/19 21:59 DC 07/21/19 22:45 58.333 MLS/HR Sodium Chloride 90 meq/Potassium Chloride 15 meq/ Potassium Phosphate 18 mmol/ Magnesium Sulfate 8 meq/Calcium Gluconate 15 meq/ Multivitamins 10 ml/Chromium/ Copper/Manganese/ Seleni/Zn 0.5 ml/ Total Parenteral Nutrition/Amino Acids/Dextrose/ Fat Emulsion Intravenous 1,400 ml @ 58.333 mls/ hr TPN CONT 07/14/19 22:00 07/15/19 21:59 DC 07/14/19 22:00 58.333 MLS/HR Succinylcholine Chloride (Anectine) 120 mg 1X ONCE 07/11/19 08:30 07/11/19 08:31 DC 07/11/19 08:34 120 MG Labs: Lab Laboratory Tests Test 07/25/19 11:21 07/25/19 19:07 07/26/19 00:27 07/26/19 06:45 Glucose (Fingerstick) 169 mg/dL (70-99) 182 mg/dL (70-99) 170 mg/dL (70-99) White Blood Count 11.0 x10^3/uL (4.0-11.0) Red Blood Count 2.50 x10^6/uL (3.50-5.40) Hemoglobin 8.0 g/dL (12.0-15.5) Hematocrit 24.9 % (36.0-47.0) Mean Corpuscular Volume 99 fL (79-100) Mean Corpuscular Hemoglobin 32 pg (25-35) Mean Corpuscular Hemoglobin Concent 32 g/dL (31-37) Red Cell Distribution Width 18.9 % (11.5-14.5) Platelet Count 270 x10^3/uL (140-400) Sodium Level 139 mmol/L (136-145) Potassium Level 4.6 mmol/L (3.5-5.1) Chloride Level 104 mmol/L (98-107) Carbon Dioxide Level 25 mmol/L (21-32) Anion Gap 10 (6-14) Blood Urea Nitrogen 73 mg/dL (7-20) Creatinine 2.3 mg/dL (0.6-1.0) Estimated GFR (Cockcroft-Gault) 22.5 Glucose Level 155 mg/dL (70-99) Calcium Level 8.9 mg/dL (8.5-10.1) Phosphorus Level 5.8 mg/dL (2.6-4.7) Albumin 2.9 g/dL (3.4-5.0) Test 07/26/19 06:49 07/26/19 08:00 Glucose (Fingerstick) 145 mg/dL (70-99) O2 Saturation 96 % (92-99) Arterial Blood pH 7.30 (7.35-7.45) Arterial Blood pCO2 at Patient Temp 45 mmHg (35-46) Arterial Blood pO2 at Patient Temp 95 mmHg (75-108) Arterial Blood HCO3 22 mmol/L (21-28) Arterial Blood Base Excess -5 mmol/L (-3-3) FiO2 40 Objective: Assessment: Acute pancreatitis, early developing necrosis Cholelithiasis Leucocytosis improving JUANA,Hyperkalemia, Metabolic acidosis on HD Acute hypoxic resp failure ,bilateral pleural effusion hypocalcemia Prediabetes HTN Plan: Plan of Care Continue Cefepime /Daptomycin (07/12), Flagyl and micafungin (07/10) -Previously on Merrem, Zyvox f/u cults Maintain aspiration precautions COVID-19 neg, 07/13 C diff negative 07/10 Lt IJ DC'd D/w nursing Critically ill YUNIOR JONES MD Jul 26, 2019 09:15
--- NOTE | 2019-07-26 09:25 | PDOC ---
SUBJECTIVE ROS Stable, tolerated UF of 4 Lts on 07/24 Seen on HD OBJECTIVE Vital Signs Vital Signs Date Time Temp Pulse Resp B/P (MAP) Pulse Ox O2 Delivery O2 Flow Rate FiO2 07/26/19 07:49 99 Ventilator 07/26/19 07:00 86 18 112/68 (83) 07/26/19 04:00 97.4 97.4 I & 0 Intake and Output 07/26/19 07:00 Intake Total 1778.5 ml Output Total 562 ml Balance 1216.5 ml Intake Oral 0 ml IV Total 1778.5 ml Output Urine Total 462 ml Stool Total 0 ml Gastric Drainage Total 100 ml PHYSICAL EXAM Physical Exam GENERAL: On MV HEENT om moist NECK: Trach + LUNGS: Diminished aeration bases HEART: S1, S2, regular ABDOMEN: Distended, hypoactive BS, Rectal tube in place : Lind EXTREMITIES: Generalized edema, some mottling DERMATOLOGIC: No generalized rash. CENTRAL NERVOUS SYSTEM: Sedated RIJ Temp HDC DIAGNOSIS/ASSESSMENT Assessment & Plan ARF-- ATN, Off CRRT Yesterday IUF with 4 lts off HD today, discussed and reviewed orders with Belkis Will schedule for TTS for now, monitor for Renal recovery and Volume status Anemia- per primary Currently on HIRAM Anasarca due to 3rd spacing Hyperkalemia- resolved AC Panreatitis, early developing necrosis Cholelithiasis Acute hypoxic resp failure ,bilateral pleural effusion On MV hypocalcemia - stable HTN- Hypotensive , pressors as indicated COMMENT/RELEVANT DATA Meds Current Medications Medications (Trade) Dose Ordered Sig/Yvon Start Time Stop Time Status Last Admin Dose Admin Acetaminophen (Tylenol Supp) 650 mg PRN Q6HRS PRN 07/12/19 10:30 07/12/19 10:37 650 MG Acetaminophen (Tylenol) 650 mg PRN Q6HRS PRN 07/09/19 03:36 07/14/19 07:35 650 MG Albumin Human 200 ml @ 200 mls/hr 1X PRN PRN 07/25/19 14:00 07/25/19 19:59 DC 07/25/19 14:51 200 MLS/HR Albuterol Sulfate (Ventolin Neb Soln) 2.5 mg 1X ONCE 07/05/19 22:30 07/05/19 22:31 DC 07/06/19 00:56 2.5 MG Alteplase, Recombinant (Cathflo For Central Catheter Clearance) 1 mg 1X ONCE 07/19/19 22:00 07/19/19 22:01 DC 07/19/19 22:05 1 MG Artificial Tears (Artificial Tears) 1 drop PRN Q1HR PRN 07/11/19 08:15 Atenolol (Tenormin) 100 mg DAILY 07/05/19 09:00 07/04/19 20:08 DC Atropine Sulfate (ATROPINE 0.5mg SYRINGE) 0.5 mg PRN Q5MIN PRN 07/21/19 08:15 Benzocaine (Hurricaine One) 1 spray 1X ONCE 07/08/19 14:30 07/08/19 14:31 DC 07/08/19 16:38 1 SPRAY Bupivacaine HCl/ Epinephrine Bitart (Sensorcain-Epi 0.5%-1:[id number] Mpf) 30 ml STK-MED ONCE 07/25/19 11:00 07/25/19 11:01 DC 07/25/19 11:44 1 ML Calcium Carbonate/ Glycine (Tums) 500 mg PRN [id number] PRN 07/06/19 17:45 Calcium Chloride 1000 mg/Sodium Chloride 110 ml @ 220 mls/hr 1X ONCE 07/05/19 22:30 07/05/19 22:59 DC 07/05/19 22:11 220 MLS/HR Calcium Chloride 3000 mg/Sodium Chloride 1,030 ml @ 50 mls/hr [id number] 07/07/19 08:00 07/09/19 15:23 DC 07/09/19 02:17 50 MLS/HR Calcium Gluconate (Calcium Gluconate) 2,000 mg 1X ONCE 07/07/19 02:15 07/07/19 02:16 DC 07/07/19 02:19 2,000 MG Calcium Gluconate 1000 mg/Sodium Chloride 110 ml @ 220 mls/hr 1X ONCE 07/06/19 03:30 07/06/19 03:59 DC 07/06/19 03:21 220 MLS/HR Calcium Gluconate 2000 mg/Sodium Chloride 120 ml @ 220 mls/hr 1X ONCE 07/06/19 07:30 07/06/19 08:02 DC 07/06/19 09:05 220 MLS/HR Cefepime HCl (Maxipime) 2 gm Q12HR 07/13/19 09:00 07/25/19 21:47 2 GM Cellulose (Surgicel Fibrillar 1x2) 1 each STK-MED ONCE 07/25/19 11:00 07/25/19 11:01 DC Cellulose (Surgicel Hemostat 4x8) 1 each STK-MED ONCE 07/25/19 11:55 07/25/19 11:56 DC 07/25/19 11:44 1 EACH Daptomycin 500 mg/ Sodium Chloride 50 ml @ 100 mls/hr Q48H 07/13/19 08:30 07/25/19 08:35 100 MLS/HR Dexmedetomidine HCl 400 mcg/ Sodium Chloride 100 ml @ 0 mls/hr CONT PRN 07/21/19 08:15 07/26/19 06:53 27.8 MLS/HR Dextrose (Dextrose 50%-Water Syringe) 12.5 gm PRN Q15MIN PRN 07/04/19 09:30 Digoxin (Lanoxin) 125 mcg 1X ONCE 07/07/19 18:00 07/07/19 18:01 DC 07/07/19 17:10 125 MCG Diphenhydramine HCl (Benadryl) 25 mg 1X PRN PRN 07/25/19 14:00 07/26/19 13:59 Etomidate (Amidate) 8 mg 1X ONCE 07/11/19 08:30 07/11/19 08:31 DC 07/11/19 08:33 8 MG Fentanyl Citrate (Fentanyl 2ml Vial) 50 mcg PRN Q5MIN PRN 07/25/19 07:00 07/26/19 06:59 DC Furosemide (Lasix) 20 mg 1X ONCE 07/21/19 08:15 07/21/19 08:16 DC 07/21/19 08:19 20 MG Heparin Sodium (Porcine) (Heparin Sodium) 5,000 unit Q12HR 07/22/19 21:00 07/25/19 21:48 5,000 UNIT Hydromorphone HCl (Dilaudid) 1 mg PRN Q3HRS PRN 07/05/19 12:00 07/19/19 00:25 DC 07/11/19 05:13 1 MG Info (CONTRAST GIVEN -- Rx MONITORING) 1 each PRN DAILY PRN 07/18/19 11:45 07/20/19 11:44 DC Info (Icu Electrolyte Protocol) 1 ea CONT PRN PRN 07/17/19 13:15 Info (PHARMACY MONITORING -- do not chart) 1 each PRN DAILY PRN 07/25/19 14:00 Info (Tpn Per Pharmacy) 1 each PRN DAILY PRN 07/06/19 12:30 UNV Insulin Human Lispro (HumaLOG) 0-9 UNITS Q6HRS 07/04/19 09:30 07/26/19 00:30 4 UNITS Insulin Human Regular (HumuLIN R VIAL) 5 unit 1X ONCE 07/05/19 22:30 07/05/19 22:31 DC 07/05/19 22:14 5 UNIT Iohexol (Omnipaque 240 Mg/ml) 30 ml 1X ONCE 07/18/19 11:30 07/18/19 11:33 DC 07/18/19 11:30 30 ML Iohexol (Omnipaque 300 Mg/ml) 60 ml 1X ONCE 07/05/19 17:00 07/05/19 17:01 DC 07/05/19 17:20 60 ML Iohexol (Omnipaque 350 Mg/ml) 90 ml 1X ONCE 07/04/19 03:30 07/04/19 03:31 DC 07/04/19 03:25 90 ML Ketorolac Tromethamine (Toradol 30mg Vial) 30 mg 1X ONCE 07/04/19 03:00 07/04/19 03:01 DC 07/04/19 02:54 30 MG Lidocaine HCl (Buffered Lidocaine 1%) 6 ml 1X ONCE 07/21/19 09:00 07/21/19 09:06 DC 07/21/19 09:05 6 ML Lidocaine HCl (Glydo (Lidocaine) Jelly) 1 ramu 1X ONCE 07/08/19 14:30 07/08/19 14:31 DC 07/08/19 16:38 1 RAMU Lidocaine HCl (Xylocaine-Mpf 1% 2ml Vial) 2 ml PRN 1X PRN 07/25/19 07:00 07/26/19 06:59 DC Linezolid/Dextrose 300 ml @ 300 mls/hr Q12HR 07/08/19 20:00 07/15/19 07:50 DC 07/14/19 21:04 300 MLS/HR Lorazepam (Ativan Inj) 1 mg PRN Q4HRS PRN 07/07/19 09:00 07/11/19 00:34 1 MG Magnesium Sulfate 50 ml @ 25 mls/hr PRN DAILY PRN 07/24/19 09:15 Meropenem 1 gm/ Sodium Chloride 100 ml @ 200 mls/hr Q8HRS 07/05/19 20:00 07/06/19 08:48 DC 07/06/19 05:45 200 MLS/HR Meropenem 500 mg/ Sodium Chloride 50 ml @ 100 mls/hr Q6HRS 07/12/19 09:00 07/13/19 07:29 DC 07/13/19 06:00 100 MLS/HR Metoprolol Tartrate (Lopressor Vial) 5 mg Q6HRS 07/05/19 10:15 07/16/19 08:48 DC 07/14/19 00:12 5 MG Metronidazole 100 ml @ 100 mls/hr Q6HRS 07/11/19 08:30 07/26/19 00:32 100 MLS/HR Micafungin Sodium 100 mg/Dextrose 100 ml @ 100 mls/hr Q24H 07/11/19 09:00 07/25/19 08:36 100 MLS/HR Midazolam HCl (Versed) 5 mg 1X ONCE 07/11/19 08:30 07/11/19 08:31 DC Midazolam HCl 100 mg/Sodium Chloride 100 ml @ 7 mls/hr CONT PRN 07/16/19 16:00 07/26/19 02:21 7 MLS/HR Midazolam HCl 50 mg/Sodium Chloride 50 ml @ 0 mls/hr CONT PRN 07/11/19 08:15 07/16/19 15:59 DC 07/14/19 22:39 7 MLS/HR Morphine Sulfate (Morphine Sulfate) 2 mg PRN Q2HR PRN 07/04/19 05:00 07/05/19 14:15 DC 07/05/19 12:26 2 MG Multi-Ingred Cream/Lotion/Oil/ Oint (Artificial Tears Eye Ointment) 1 ramu PRN Q1HR PRN 07/13/19 17:30 07/22/19 11:05 1 RAMU Norepinephrine Bitartrate 8 mg/ Dextrose 258 ml @ 17.299 mls/ hr CONT PRN 07/05/19 15:30 07/24/19 21:18 1.73 MLS/HR Ondansetron HCl (Zofran) 4 mg PRN Q6HRS PRN 07/25/19 07:00 07/26/19 06:59 DC Pantoprazole Sodium (PROTONIX VIAL for IV PUSH) 40 mg DAILYAC 07/04/19 11:30 07/25/19 08:34 40 MG Piperacillin Sod/ Tazobactam Sod 4.5 gm/Sodium Chloride 100 ml @ 200 mls/hr 1X ONCE 07/04/19 06:00 07/04/19 06:29 DC 07/04/19 05:44 200 MLS/HR Potassium Chloride 15 meq/ Bicarbonate Dialysis Soln w/ out KCl 5,007.5 ml @ 1,000 mls/ hr Q5H1M 07/17/19 20:00 07/21/19 13:08 DC 07/20/19 18:14 1,000 MLS/HR Potassium Chloride 20 meq/ Bicarbonate Dialysis Soln w/ out KCl 5,010 ml @ 1,000 mls/hr Q5H1M 07/13/19 16:00 07/17/19 19:59 DC 07/17/19 14:54 1,000 MLS/HR Potassium Chloride/Water 100 ml @ 100 mls/hr Q1H 07/12/19 11:00 07/12/19 12:59 DC 07/12/19 12:12 100 MLS/HR Potassium Phosphate 20 mmol/ Sodium Chloride 106.6667 ml @ 51.667 m... 1X ONCE 07/13/19 13:00 07/13/19 15:03 DC 07/13/19 12:51 51.667 MLS/HR Prochlorperazine Edisylate (Compazine) 5 mg PACU PRN PRN 07/25/19 07:00 07/26/19 06:59 DC Propofol 20 ml @ As Directed STK-MED ONCE 07/25/19 11:07 07/25/19 11:07 DC Ringer's Solution 1,000 ml @ 30 mls/hr Q24H 07/25/19 07:00 07/25/19 18:59 DC Sevoflurane (Ultane) 60 ml STK-MED ONCE 07/25/19 12:46 07/25/19 12:46 DC Sodium Bicarbonate 50 meq/Sodium Chloride 1,050 ml @ 75 mls/hr Q14H 07/06/19 07:30 07/11/19 10:28 DC 07/10/19 21:10 75 MLS/HR Sodium Chloride 1,000 ml @ 400 mls/hr Q2H30M PRN 07/25/19 13:51 07/26/19 01:50 DC Sodium Chloride (Normal Saline Flush) 10 ml 1X PRN PRN 07/22/19 07:30 07/23/19 07:29 DC Sodium Chloride 90 meq/Calcium Gluconate 10 meq/ Multivitamins 10 ml/Chromium/ Copper/Manganese/ Seleni/Zn 0.5 ml/ Total Parenteral Nutrition/Amino Acids/Dextrose/ Fat Emulsion Intravenous 1,512 ml @ 63 mls/hr TPN CONT 07/06/19 22:00 07/07/19 21:59 DC 07/06/19 22:06 63 MLS/HR Sodium Chloride 90 meq/Calcium Gluconate 10 meq/ Multivitamins 10 ml/Chromium/ Copper/Manganese/ Seleni/Zn 1 ml/ Total Parenteral Nutrition/Amino Acids/Dextrose/ Fat Emulsion Intravenous 55.005 ml @ 2.292 mls/hr TPN CONT 07/06/19 22:00 07/06/19 12:33 DC Sodium Chloride 90 meq/Magnesium Sulfate 10 meq/ Calcium Gluconate 20 meq/ Multivitamins 10 ml/Chromium/ Copper/Manganese/ Seleni/Zn 0.5 ml/ Total Parenteral Nutrition/Amino Acids/Dextrose/ Fat Emulsion Intravenous 1,512 ml @ 63 mls/hr TPN CONT 07/07/19 22:00 07/08/19 21:59 DC 07/07/19 22:25 63 MLS/HR Sodium Chloride 90 meq/Potassium Chloride 15 meq/ Potassium Phosphate 10 mmol/ Magnesium Sulfate 8 meq/Calcium Gluconate 15 meq/ Multivitamins 10 ml/Chromium/ Copper/Manganese/ Seleni/Zn 0.5 ml/ Insulin Human Regular 25 unit/ Total Parenteral Nutrition/Amino Acids/Dextrose/ Fat Emulsion Intravenous 1,400 ml @ 58.333 mls/ hr TPN CONT 07/24/19 22:00 07/25/19 21:59 DC 07/24/19 21:20 58.333 MLS/HR Sodium Chloride 90 meq/Potassium Chloride 15 meq/ Potassium Phosphate 10 mmol/ Magnesium Sulfate 10 meq/Calcium Gluconate 20 meq/ Multivitamins 10 ml/Chromium/ Copper/Manganese/ Seleni/Zn 0.5 ml/ Total Parenteral Nutrition/Amino Acids/Dextrose/ Fat Emulsion Intravenous 1,400 ml @ 58.333 mls/ hr TPN CONT 07/11/19 22:00 07/12/19 21:59 DC 07/11/19 21:42 58.333 MLS/HR Sodium Chloride 90 meq/Potassium Chloride 15 meq/ Potassium Phosphate 10 mmol/ Magnesium Sulfate 12 meq/Calcium Gluconate 15 meq/ Multivitamins 10 ml/Chromium/ Copper/Manganese/ Seleni/Zn 0.5 ml/ Insulin Human Regular 25 unit/ Total Parenteral Nutrition/Amino Acids/Dextrose/ Fat Emulsion Intravenous 1,400 ml @ 58.333 mls/ hr TPN CONT 07/25/19 22:00 07/26/19 21:59 07/25/19 22:24 58.333 MLS/HR Sodium Chloride 90 meq/Potassium Chloride 15 meq/ Potassium Phosphate 15 mmol/ Magnesium Sulfate 10 meq/Calcium Gluconate 15 meq/ Multivitamins 10 ml/Chromium/ Copper/Manganese/ Seleni/Zn 0.5 ml/ Total Parenteral Nutrition/Amino Acids/Dextrose/ Fat Emulsion Intravenous 1,400 ml @ 58.333 mls/ hr TPN CONT 07/12/19 22:00 07/13/19 21:59 DC 07/12/19 22:17 58.333 MLS/HR Sodium Chloride 90 meq/Potassium Chloride 15 meq/ Potassium Phosphate 15 mmol/ Magnesium Sulfate 10 meq/Calcium Gluconate 20 meq/ Multivitamins 10 ml/Chromium/ Copper/Manganese/ Seleni/Zn 0.5 ml/ Total Parenteral Nutrition/Amino Acids/Dextrose/ Fat Emulsion Intravenous 1,200 ml @ 50 mls/hr TPN CONT 07/10/19 22:00 07/10/19 14:17 DC Sodium Chloride 90 meq/Potassium Chloride 15 meq/ Potassium Phosphate 18 mmol/ Magnesium Sulfate 8 meq/Calcium Gluconate 15 meq/ Multivitamins 10 ml/Chromium/ Copper/Manganese/ Seleni/Zn 0.5 ml/ Insulin Human Regular 10 unit/ Total Parenteral Nutrition/Amino Acids/Dextrose/ Fat Emulsion Intravenous 1,400 ml @ 58.333 mls/ hr TPN CONT 07/15/19 22:00 07/16/19 21:59 DC 07/15/19 21:43 58.333 MLS/HR Sodium Chloride 90 meq/Potassium Chloride 15 meq/ Potassium Phosphate 18 mmol/ Magnesium Sulfate 8 meq/Calcium Gluconate 15 meq/ Multivitamins 10 ml/Chromium/ Copper/Manganese/ Seleni/Zn 0.5 ml/ Insulin Human Regular 15 unit/ Total Parenteral Nutrition/Amino Acids/Dextrose/ Fat Emulsion Intravenous 1,400 ml @ 58.333 mls/ hr TPN CONT 07/18/19 22:00 07/19/19 21:59 DC 07/18/19 21:47 58.333 MLS/HR Sodium Chloride 90 meq/Potassium Chloride 15 meq/ Potassium Phosphate 18 mmol/ Magnesium Sulfate 8 meq/Calcium Gluconate 15 meq/ Multivitamins 10 ml/Chromium/ Copper/Manganese/ Seleni/Zn 0.5 ml/ Insulin Human Regular 20 unit/ Total Parenteral Nutrition/Amino Acids/Dextrose/ Fat Emulsion Intravenous 1,400 ml @ 58.333 mls/ hr TPN CONT 07/21/19 22:00 07/22/19 21:59 DC 07/21/19 22:45 58.333 MLS/HR Sodium Chloride 90 meq/Potassium Chloride 15 meq/ Potassium Phosphate 18 mmol/ Magnesium Sulfate 8 meq/Calcium Gluconate 15 meq/ Multivitamins 10 ml/Chromium/ Copper/Manganese/ Seleni/Zn 0.5 ml/ Total Parenteral Nutrition/Amino Acids/Dextrose/ Fat Emulsion Intravenous 1,400 ml @ 58.333 mls/ hr TPN CONT 07/14/19 22:00 07/15/19 21:59 DC 07/14/19 22:00 58.333 MLS/HR Succinylcholine Chloride (Anectine) 120 mg 1X ONCE 07/11/19 08:30 07/11/19 08:31 DC 07/11/19 08:34 120 MG Lab Laboratory Tests Test 07/25/19 11:21 07/25/19 19:07 07/26/19 00:27 07/26/19 06:45 Glucose (Fingerstick) 169 mg/dL (70-99) 182 mg/dL (70-99) 170 mg/dL (70-99) White Blood Count 11.0 x10^3/uL (4.0-11.0) Red Blood Count 2.50 x10^6/uL (3.50-5.40) Hemoglobin 8.0 g/dL (12.0-15.5) Hematocrit 24.9 % (36.0-47.0) Mean Corpuscular Volume 99 fL (79-100) Mean Corpuscular Hemoglobin 32 pg (25-35) Mean Corpuscular Hemoglobin Concent 32 g/dL (31-37) Red Cell Distribution Width 18.9 % (11.5-14.5) Platelet Count 270 x10^3/uL (140-400) Sodium Level 139 mmol/L (136-145) Potassium Level 4.6 mmol/L (3.5-5.1) Chloride Level 104 mmol/L (98-107) Carbon Dioxide Level 25 mmol/L (21-32) Anion Gap 10 (6-14) Blood Urea Nitrogen 73 mg/dL (7-20) Creatinine 2.3 mg/dL (0.6-1.0) Estimated GFR (Cockcroft-Gault) 22.5 Glucose Level 155 mg/dL (70-99) Calcium Level 8.9 mg/dL (8.5-10.1) Phosphorus Level 5.8 mg/dL (2.6-4.7) Albumin 2.9 g/dL (3.4-5.0) Test 07/26/19 06:49 07/26/19 08:00 Glucose (Fingerstick) 145 mg/dL (70-99) O2 Saturation 96 % (92-99) Arterial Blood pH 7.30 (7.35-7.45) Arterial Blood pCO2 at Patient Temp 45 mmHg (35-46) Arterial Blood pO2 at Patient Temp 95 mmHg (75-108) Arterial Blood HCO3 22 mmol/L (21-28) Arterial Blood Base Excess -5 mmol/L (-3-3) FiO2 40 Results All relevant outside records, renal labs, imaging studies, telemetry/EKG's were reviewed. VERENA KENT MD Jul 26, 2019 09:25
[2019-07-26] MEDS ORDERED: HEPARIN PF 500 UNIT/5 ML DISP.SYRIN. IVP ONE (09:29)
--- NOTE | 2019-07-26 09:39 | PDOC ---
SURGICAL PROGRESS NOTE Subjective d/w nursing no issues with trach stable overnight Vital Signs Vital Signs Date Time Temp Pulse Resp B/P (MAP) Pulse Ox O2 Delivery O2 Flow Rate FiO2 07/26/19 07:49 99 Ventilator 07/26/19 07:00 86 18 112/68 (83) 07/26/19 04:00 97.4 97.4 I&O Intake and Output 07/26/19 07:00 Intake Total 1778.5 ml Output Total 562 ml Balance 1216.5 ml Intake Oral 0 ml IV Total 1778.5 ml Output Urine Total 462 ml Stool Total 0 ml Gastric Drainage Total 100 ml PATIENT HAS A ROSARIO: Yes General: Other (sedated ) HEENT: Other (trach intact ) Abdomen: Other (distended, tight abdomen ) Labs Laboratory Tests Test 07/24/19 11:44 07/24/19 18:09 07/24/19 23:55 07/25/19 05:26 Glucose (Fingerstick) 162 mg/dL (70-99) 133 mg/dL (70-99) 158 mg/dL (70-99) 157 mg/dL (70-99) Test 07/25/19 05:45 07/25/19 07:40 07/25/19 11:21 07/25/19 19:07 Hemoglobin 7.8 g/dL (12.0-15.5) Sodium Level 139 mmol/L (136-145) Potassium Level 4.2 mmol/L (3.5-5.1) Chloride Level 103 mmol/L (98-107) Carbon Dioxide Level 25 mmol/L (21-32) Anion Gap 11 (6-14) Blood Urea Nitrogen 48 mg/dL (7-20) Creatinine 1.8 mg/dL (0.6-1.0) Estimated GFR (Cockcroft-Gault) 29.9 Glucose Level 167 mg/dL (70-99) Calcium Level 8.6 mg/dL (8.5-10.1) Phosphorus Level 3.9 mg/dL (2.6-4.7) Magnesium Level 1.8 mg/dL (1.8-2.4) Albumin 2.6 g/dL (3.4-5.0) O2 Saturation 97 % (92-99) Arterial Blood pH 7.42 (7.35-7.45) Arterial Blood pCO2 at Patient Temp 37 mmHg (35-46) Arterial Blood pO2 at Patient Temp 105 mmHg (75-108) Arterial Blood HCO3 24 mmol/L (21-28) Arterial Blood Base Excess -1 mmol/L (-3-3) FiO2 40 Glucose (Fingerstick) 169 mg/dL (70-99) 182 mg/dL (70-99) Test 07/26/19 00:27 07/26/19 06:45 07/26/19 06:49 07/26/19 08:00 Glucose (Fingerstick) 170 mg/dL (70-99) 145 mg/dL (70-99) White Blood Count 11.0 x10^3/uL (4.0-11.0) Red Blood Count 2.50 x10^6/uL (3.50-5.40) Hemoglobin 8.0 g/dL (12.0-15.5) Hematocrit 24.9 % (36.0-47.0) Mean Corpuscular Volume 99 fL (79-100) Mean Corpuscular Hemoglobin 32 pg (25-35) Mean Corpuscular Hemoglobin Concent 32 g/dL (31-37) Red Cell Distribution Width 18.9 % (11.5-14.5) Platelet Count 270 x10^3/uL (140-400) Sodium Level 139 mmol/L (136-145) Potassium Level 4.6 mmol/L (3.5-5.1) Chloride Level 104 mmol/L (98-107) Carbon Dioxide Level 25 mmol/L (21-32) Anion Gap 10 (6-14) Blood Urea Nitrogen 73 mg/dL (7-20) Creatinine 2.3 mg/dL (0.6-1.0) Estimated GFR (Cockcroft-Gault) 22.5 Glucose Level 155 mg/dL (70-99) Calcium Level 8.9 mg/dL (8.5-10.1) Phosphorus Level 5.8 mg/dL (2.6-4.7) Albumin 2.9 g/dL (3.4-5.0) O2 Saturation 96 % (92-99) Arterial Blood pH 7.30 (7.35-7.45) Arterial Blood pCO2 at Patient Temp 45 mmHg (35-46) Arterial Blood pO2 at Patient Temp 95 mmHg (75-108) Arterial Blood HCO3 22 mmol/L (21-28) Arterial Blood Base Excess -5 mmol/L (-3-3) FiO2 40 Laboratory Tests Test 07/25/19 11:21 07/25/19 19:07 07/26/19 00:27 07/26/19 06:45 Glucose (Fingerstick) 169 mg/dL (70-99) 182 mg/dL (70-99) 170 mg/dL (70-99) White Blood Count 11.0 x10^3/uL (4.0-11.0) Red Blood Count 2.50 x10^6/uL (3.50-5.40) Hemoglobin 8.0 g/dL (12.0-15.5) Hematocrit 24.9 % (36.0-47.0) Mean Corpuscular Volume 99 fL (79-100) Mean Corpuscular Hemoglobin 32 pg (25-35) Mean Corpuscular Hemoglobin Concent 32 g/dL (31-37) Red Cell Distribution Width 18.9 % (11.5-14.5) Platelet Count 270 x10^3/uL (140-400) Sodium Level 139 mmol/L (136-145) Potassium Level 4.6 mmol/L (3.5-5.1) Chloride Level 104 mmol/L (98-107) Carbon Dioxide Level 25 mmol/L (21-32) Anion Gap 10 (6-14) Blood Urea Nitrogen 73 mg/dL (7-20) Creatinine 2.3 mg/dL (0.6-1.0) Estimated GFR (Cockcroft-Gault) 22.5 Glucose Level 155 mg/dL (70-99) Calcium Level 8.9 mg/dL (8.5-10.1) Phosphorus Level 5.8 mg/dL (2.6-4.7) Albumin 2.9 g/dL (3.4-5.0) Test 07/26/19 06:49 07/26/19 08:00 Glucose (Fingerstick) 145 mg/dL (70-99) O2 Saturation 96 % (92-99) Arterial Blood pH 7.30 (7.35-7.45) Arterial Blood pCO2 at Patient Temp 45 mmHg (35-46) Arterial Blood pO2 at Patient Temp 95 mmHg (75-108) Arterial Blood HCO3 22 mmol/L (21-28) Arterial Blood Base Excess -5 mmol/L (-3-3) FiO2 40 Problem List Problems Medical Problems: (1) Acute pancreatitis Status: Acute (2) Cholelithiasis Status: Acute Assessment/Plan supportive care 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 DATA CONTROL ASSISTANT Jul 26, 2019 09:39
[2019-07-26] MEDS: PANTOPRAZOLE IV PUSH 40 MG VIAL. IVP SCH (09:43)
[2019-07-26] MEDS: CEFEPIME HCL IV Push 2 GM VIAL. IVP SCH ×2 (09:43→20:56)
[2019-07-26] MEDS: HEPARIN for SUB-Q USE 5,000 UNIT/ML VIAL. SQ SCH ×2 (09:47→20:56)
--- NOTE | 2019-07-26 09:48 | PDOC ---
Objective: Objective: D/w nurse - stable post trach, ongoing gastric drainage. On TPN, IV PPI. Vital Signs: Vital Signs Date Time Temp Pulse Resp B/P (MAP) Pulse Ox O2 Delivery O2 Flow Rate FiO2 07/26/19 07:49 99 Ventilator 07/26/19 07:00 86 18 112/68 (83) 07/26/19 04:00 97.4 97.4 Labs: Laboratory Tests Test 07/25/19 11:21 07/25/19 19:07 07/26/19 00:27 07/26/19 06:45 Glucose (Fingerstick) 169 mg/dL 182 mg/dL 170 mg/dL White Blood Count 11.0 x10^3/uL Red Blood Count 2.50 x10^6/uL Hemoglobin 8.0 g/dL Hematocrit 24.9 % Mean Corpuscular Volume 99 fL Mean Corpuscular Hemoglobin 32 pg Mean Corpuscular Hemoglobin Concent 32 g/dL Red Cell Distribution Width 18.9 % Platelet Count 270 x10^3/uL Sodium Level 139 mmol/L Potassium Level 4.6 mmol/L Chloride Level 104 mmol/L Carbon Dioxide Level 25 mmol/L Anion Gap 10 Blood Urea Nitrogen 73 mg/dL Creatinine 2.3 mg/dL Estimated GFR (Cockcroft-Gault) 22.5 Glucose Level 155 mg/dL Calcium Level 8.9 mg/dL Phosphorus Level 5.8 mg/dL Albumin 2.9 g/dL Test 07/26/19 06:49 07/26/19 08:00 Glucose (Fingerstick) 145 mg/dL O2 Saturation 96 % Arterial Blood pH 7.30 Arterial Blood pCO2 at Patient Temp 45 mmHg Arterial Blood pO2 at Patient Temp 95 mmHg Arterial Blood HCO3 22 mmol/L Arterial Blood Base Excess -5 mmol/L FiO2 40 Imaging: CXR 07/25 Impression: 1. Moderate to large right and small left layering pleural effusions. 2. Diffuse interstitial thickening with bibasilar consolidations, unchanged. PE: GEN: trach/vent LUNGS: clear HEART: RRR ABD: distended/tight,r ectal tube dark liquid, NG bilious NEURO/PSYCH: vent A/P: Gallstone pancreatitis, MOSF -- Continue support. Hemodynamically unstable?: No Is patient in severe pain?: No Is NPO status required?: Yes CYNDEE FALCON Jul 26, 2019 09:47
[2019-07-26] MEDS: MICAFUNGIN 100 MG in IV DEXTROSE 5% 100ML 100 ML IV SCH (10:00)
[2019-07-26] MEDS ORDERED: IV NORMAL SALINE 1000ML BAG 1,000 ML IV PRN ×2 (10:43)
[2019-07-26] MEDS ORDERED: DIALYSIS PATIENT. MC PRN ×2 (10:45)
--- NOTE | 2019-07-26 11:16 | NUR ---
SS following up with discharge planning. SS discussed with pt RN. Pt remains on the vent at this time. Trach placed on 07/25/2019. Pt to receive hemodialysis on Tuesdays, , and Saturdays. SS will continue to follow for discharge planning.
--- NOTE | 2019-07-26 12:56 | RAD ---
Single View of the Abdomen. 4.7.20 Indication: eval NG position. Findings: NG tube extends into the distal stomach. The bowel gas pattern is nonobstructive. No acute osseous changes are seen. No gross pneumoperitoneum is identified. Impression: 1. NG tube extends into the distal stomach 2. Non obstructive bowel gas pattern. Electronically signed by: Bobby Nobles MD (07/26/2019 12:53 PM) [email or web address]
[2019-07-26] MEDS: TPN PER PHARMACY MC PRN (13:07)
--- NOTE | 2019-07-26 13:11 | NUR ---
Pharmacy TPN Dosing Note S: SCOTT AVILA is a 48 year old F Currently receiving Central Continuous TPN started 07/06/19 B:Pertinent PMH: Necrotizing pancreatitis Height: 5 feet, 8 inches Weight: 105.8 kg Current diet: NPO LABS: Sodium: 139 Potassium: 4.6 Chloride: 104 Calcium: 8.9 Corrected Calcium: 9.78 Magnesium: 1.8 CO2: 25 SCr: 2.3 Glucose: 145-182 Albumin: 2.9 AST: 47 ALT: 20 TPN FORMULA: TPN TYPE: Central Continuous AMINO ACIDS: 125 gm DEXTROSE: 195 gm LIPIDS: 40 gm SODIUM CHLORIDE: 90 mEq POTASSIUM CHLORIDE: 15 mEq MAGNESIUM: 12 mEq CALCIUM: 15 mEq INSULIN: 25 units MULTIPLE VITAMIN: 10 ml TRACE ELEMENTS: 0.5 ml(s) TPN PLAN: Kphos removed from TPN per AM lab results Renal panel ordered for am per MD R: Continue TPN Will monitor electrolytes, glucose, and tolerance to TPN. Raeann Mcdonnell Katya, 07/26/19 [id number]
--- NOTE | 2019-07-26 13:59 | NUR ---
1200 dose Flagyl held due to patient being dialyzed. Patient receiving 1800 dose after dialysis. Patient being dialyzed in ICU room 116.
--- NOTE | 2019-07-26 14:31 | PDOC ---
PROGRESS NOTES Assessment Assessment Respiratory failure. Seizure. Metabolic encephalopathy. Fever 102.7 degree. Metabolic acidosis. Diffuse pulmonary infiltrate. Pleural effusion. Pancreatitis Gallstone. Leukocytosis. Electrolytes imbalances. Hyperglycemia. DM. HTN. HLD. Anemia. Abnormal CXR. Obesity. RECOMMENDATIONS/PLAN: Continue life support in PACU at the present time. Keppra if has further seizures. Treat medical diseases. OT/PT. EEG last week: No seizure activity. OBJECTIVE: 07/25/19: No seizures reported over night. Past Medical History Cardiovascular: HTN, Hyperlipidemia Endocrine: Diabetes Family History Unobtainable. Social HistoryU not obtainable Allergies Coded Allergies: Codeine (Verified Allergy, Intermediate, rash, 07/04/19) ROS Unobtainable in unresponsive state. PHYSICAL EXAMINATION: General appearance in sub acute distress. HEENT: Normocephalic and nontraumatic. Eyes, nose, ears, and throat are unremarkable. Neck is supple. No lymphadenopathy. Cardiovascular: S1, S2. Pulmonary: On vent.. Abdomen: Bowel sounds are weak. Extremities: No rash, lesions. Edema noted in hands. NEUROLOGICAL EXAMINATION: Minimal responsiveness. Extubated. Not oriented to time, place and person. PERRL. EOMI not active. CN: no acute focal findings. Muscle tone: Decreased. Muscle strength: No movements to stimuli. DTR: 1 Plantar reflex: No response bilaterally Gait: not able to walk. Sensory exam: no response to stimuli.. Not able to access cerebellar signs. F-T-N test not performed due to unresponsiveness Objective Objective Vital Signs Date Time Temp Pulse Resp B/P (MAP) Pulse Ox O2 Delivery O2 Flow Rate FiO2 07/26/19 13:28 98 Ventilator 6.0 07/26/19 10:00 86 18 107/61 (76) 07/26/19 09:00 97.0 97.0 Intake and Output 07/26/19 07:00 Intake Total 1778.5 ml Output Total 562 ml Balance 1216.5 ml Intake Oral 0 ml IV Total 1778.5 ml Output Urine Total 462 ml Stool Total 0 ml Gastric Drainage Total 100 ml Vitals Signs Vitals VS - Last 72 Hours, by Label Date Time Temp Pulse Resp B/P (MAP) Pulse Ox O2 Delivery O2 Flow Rate FiO2 07/26/19 13:28 98 Ventilator 6.0 07/26/19 12:00 Mechanical Ventilator 07/26/19 11:49 98 Ventilator 07/26/19 10:00 86 18 107/61 (76) 97 Ventilator 07/26/19 09:00 97.0 84 18 99/65 (76) 97 Ventilator 97.0 07/26/19 08:00 Mechanical Ventilator 07/26/19 08:00 86 18 117/71 (86) 98 Ventilator 07/26/19 07:49 99 Ventilator 07/26/19 07:00 86 18 112/68 (83) 98 Ventilator 07/26/19 06:00 82 18 104/64 (77) 99 Ventilator 07/26/19 05:00 84 18 104/62 (76) 99 Ventilator 07/26/19 04:00 Mechanical Ventilator 07/26/19 04:00 97.4 84 18 106/65 (79) 99 Ventilator 97.4 07/26/19 03:30 99 Ventilator 07/26/19 03:00 82 18 104/65 (78) 99 Ventilator 07/26/19 02:00 82 18 105/61 (76) 99 Ventilator 07/26/19 01:00 82 18 103/57 (72) 99 Ventilator 07/26/19 00:20 99 Ventilator 07/26/19 00:00 Mechanical Ventilator 07/26/19 00:00 97.4 80 18 106/65 (79) 99 Ventilator 97.4 07/25/19 23:00 80 18 109/67 (81) 99 Ventilator 07/25/19 22:00 80 18 97/61 (73) 99 Ventilator 07/25/19 21:00 82 18 117/73 (88) 99 Ventilator 07/25/19 20:51 100 Ventilator 07/25/19 20:00 97.7 82 18 123/77 (92) 99 Ventilator 97.7 07/25/19 20:00 Mechanical Ventilator 07/25/19 19:10 99 Ventilator 07/25/19 19:00 97.3 85 18 120/73 (89) 100 Ventilator 97.3 07/25/19 18:45 81 18 188/82 (117) 100 Ventilator 07/25/19 18:11 Mechanical Ventilator 07/25/19 16:00 Mechanical Ventilator 07/25/19 15:51 100 Ventilator 07/25/19 14:10 18 97 Ventilator 07/25/19 14:00 81 18 112/73 (86) 97 Ventilator 07/25/19 13:40 19 96 Ventilator 07/25/19 13:15 86 19 112/71 (85) 96 07/25/19 13:00 82 18 82/60 (67) 94 Ventilator 07/25/19 12:45 84 19 73/49 (57) 94 07/25/19 12:30 Mechanical Ventilator 07/25/19 12:30 97.9 86 18 83/51 (62) 99 Ventilator 97.9 07/25/19 12:30 100 Ventilator 07/25/19 11:00 97.9 76 18 103/65 (78) 99 Ventilator 97.9 07/25/19 10:00 76 18 93/67 (76) 99 Ventilator 07/25/19 09:00 77 18 95/72 (80) 99 Ventilator 07/25/19 08:00 76 18 100/58 (72) 99 Ventilator 07/25/19 07:48 Mechanical Ventilator 07/25/19 07:39 100 Ventilator 07/25/19 07:00 97.7 77 18 104/65 (78) 100 Ventilator 97.7 Laboratory Laboratory Laboratory Tests Test 07/25/19 19:07 07/26/19 00:27 07/26/19 06:45 07/26/19 06:49 Glucose (Fingerstick) 182 mg/dL (70-99) 170 mg/dL (70-99) 145 mg/dL (70-99) White Blood Count 11.0 x10^3/uL (4.0-11.0) Red Blood Count 2.50 x10^6/uL (3.50-5.40) Hemoglobin 8.0 g/dL (12.0-15.5) Hematocrit 24.9 % (36.0-47.0) Mean Corpuscular Volume 99 fL (79-100) Mean Corpuscular Hemoglobin 32 pg (25-35) Mean Corpuscular Hemoglobin Concent 32 g/dL (31-37) Red Cell Distribution Width 18.9 % (11.5-14.5) Platelet Count 270 x10^3/uL (140-400) Sodium Level 139 mmol/L (136-145) Potassium Level 4.6 mmol/L (3.5-5.1) Chloride Level 104 mmol/L (98-107) Carbon Dioxide Level 25 mmol/L (21-32) Anion Gap 10 (6-14) Blood Urea Nitrogen 73 mg/dL (7-20) Creatinine 2.3 mg/dL (0.6-1.0) Estimated GFR (Cockcroft-Gault) 22.5 Glucose Level 155 mg/dL (70-99) Calcium Level 8.9 mg/dL (8.5-10.1) Phosphorus Level 5.8 mg/dL (2.6-4.7) Albumin 2.9 g/dL (3.4-5.0) Test 07/26/19 08:00 O2 Saturation 96 % (92-99) Arterial Blood pH 7.30 (7.35-7.45) Arterial Blood pCO2 at Patient Temp 45 mmHg (35-46) Arterial Blood pO2 at Patient Temp 95 mmHg (75-108) Arterial Blood HCO3 22 mmol/L (21-28) Arterial Blood Base Excess -5 mmol/L (-3-3) FiO2 40 Microbiology 07/24/19 Blood Culture - Preliminary, Resulted NO GROWTH AFTER 2 DAYS 07/23/19 Urine Culture - Final, Complete 07/23/19 Urine Culture Result 1 (ALEXANDRA) - Final, Complete Medication Medications Current Medications Heparin Sodium (Porcine) (Hep Lock Adult) 500 unit STK-MED ONCE IVP ; Start 07/26/19 at 09:29; Stop 07/26/19 at 09:30; Status DC Info (PHARMACY MONITORING -- do not chart) 1 each PRN DAILY PRN MC SEE COMMENTS; Start 07/26/19 at 10:45; Status UNV Info (PHARMACY MONITORING -- do not chart) 1 each PRN DAILY PRN MC SEE COMMENTS; Start 07/26/19 at 10:45; Status UNV Sodium Chloride 1,000 ml @ 400 mls/hr Q2H30M PRN IV PATENCY; Start 07/26/19 at 10:43; Stop 07/26/19 at 22:42 Sodium Chloride 1,000 ml @ 1,000 mls/hr Q1H PRN IV hypotension; Start 07/26/19 at 10:43; Stop 07/26/19 at 16:42 Sodium Chloride 90 meq/Potassium Chloride 15 meq/ Magnesium Sulfate 12 meq/C alcium Gluconate 15 meq/ Multivitamins 10 ml/Chromium/ Copper/Manganese/ Seleni/Zn 0.5 ml/ Insulin Human Regular 25 unit/ Total Parenteral Nutrition/Amino Acids/Dextrose/ Fat Emulsion Intravenous 1,400 ml @ 58.333 mls/ hr TPN CONT IV ; Start 07/26/19 at 22:00; Stop 07/27/19 at 21:59 Sodium Chloride 90 meq/Potassium Chloride 15 meq/ Potassium Phosphate 10 mmol/ Magnesium Sulfate 12 meq/Calcium Gluconate 15 meq/ Multivitamins 10 ml/Chromium/ Copper/Manganese/ Seleni/Zn 0.5 ml/ Insulin Human Regular 25 unit/ Total Parenteral Nutrition/Amino Acids/Dextrose/ Fat Emulsion Intravenous 1,400 ml @ 58.333 mls/ hr TPN CONT IV Last administered on 07/25/19at 22:24; Start 07/25/19 at 22:00; Stop 07/26/19 at 21:59 Comment Review of Relevant I have reviewed the following items kolby (where applicable) has been applied. ZANDER ZUÑIGA MD Jul 26, 2019 14:30
--- NOTE | 2019-07-26 16:13 | PDOC ---
PROGRESS NOTES Chief Complaint Chief Complaint Respiratory failure requiring mechanical ventilation Severe Acute gallstone pancreatitis (not a surgical candidate at this time) with necrosis Acute kidney failure now requiring dialysis Salpingitis Gallstones (Calculus of gallbladder with acute cholecystitis without obstruction) HTN Leukocytosis Hypoxia Uterine fibroid Hypoxia with respiratory failure Intractable pain Intractable nausea Covid 19 negative. Acute on chronic anemia will have to follow up since there is suspicion for hemorrhagic fluid in pelvis Plan: continue supportive measures grim prognosis discussed with neurosurgical nurse practitioner planning for trach today History of Present Illness History of Present Illness 07/26/2019 No acute events reported overnight, case discussed with nursing staff patient in no acute distress no complaints during my visit, most likely patient will be moving to LTAC soon 07/25/2019 Plans for trach int he am and dialysis in the afternoon, no acute events reported overnight. 07/24/2019 No acute events reported overnight, case discussed with nursing staff patient in no acute distress during my visit 07/23/2019 No acute events reported overnight, patient receiving dialysis today, case discussed with nursing staff patient in no acute distress during my visit 07/22/2019 No new changes remains critically ill, off CRRT, still planning for trach on Thursday unless we manage to wean over the weekend 07/21/2019 Continues to remain critically ill. The patient unable to be taken off ventilatory support as of yet., Discussed with pulmonary document management consultant. Planning all tracheostomy on Thursday if he is unable to be weaned off vent 07/20/2019 No acute events reported overnight, no fever or chills, remains critically stable, discussed with mother at bedside. [id number] Patient seen and examined in the ICU She is critically ill Mechanically ventilated Assist-control/25/450/30 with 8 of PEEP She is on cefepime daptomycin Flagyl and micafungin GEN for antibiotic coverage Also getting TPN and CRRT Sedated with Versed Getting IV albumin also She is tachycardic at 112 bpm Temp max 100.0 White blood count is down from 45,000 35,000 today Chart reviewed Discussed with RN [id number] Patient seen and examined in the ICU She remains very critically ill Going for a CT of the abdomen chest and pelvis Ventilated : On assist control 40% FiO2 Discussed with RN Chart reviewed [id number] Patient seen and examined in the ICU She is still on CRRT although we plan to change to hemodialysis soon Chart reviewed Discussed with RN Hemoglobin down to 6.9 (suspect CRRT related , Will let nephrology consider transfusion while on dialysis) [id number] Patient seen and examined in the ICU She is mechanically ventilated Before meals/25/450/30% Also on CRRT Very critically ill Chart reviewed Discussed with RN [id number] Patient seen and examined in the ICU She is now been transferred to the Covid 19 unit so we can rule out Covid and keep her in isolation Very critically ill Intubated and ventilated Assist control 40% Chart reviewed Discussed with RN Still on CRRT Getting a chest x-ray now Very concerned about her prognosis [id number] Patient seen and examined in the ICU She is extremely critically ill Remains mechanically ventilated with assist control/25/450/40% Also on continuous renal replacement therapy Chart reviewed Discussed with RN She has TPN hanging Also on pressors [id number] Patient seen and examined in the ICU She is still requiring CRRT On the vent with assist control but her FiO2 is down to 40% from yesterday Slightly better but still very critically ill Discussed with RN Chart reviewed [id number] Patient seen and examined in the ICU She remains extremely critically ill On IV fentanyl IV Versed IV Doxy On the vent Assist-control/25/450/70% She is critically ill Discussed with RN Chart reviewed Patient is currently on CRRT as well [id number] Patient seen and examined in the ICU She had to be intubated this morning On assist-control 25/450/100% with 10 of PEEP and only satting 87% She is extremely critically ill I'm not sure if she will survive Chart reviewed Discussed with RN Ms Diaz is a 48yo F w/ PMHx HTN, prediabetes who presents the emergency room complaints of abdominal pain. Patient described off and on 3 days. She states is constant, described as a squeezing sensation in a band-like distribution. + nausea, vomiting. She denies any fever or diarrhea. Patient denies any abdominal surgical procedures. She states is worse with movements, car ride. Pain initially was upper abdomen however now pretty much generalized. Last bowel movement was 07/03/2019. Nothing makes her pain better. Patient denies any shortness of breath. She does state the pain moves into her chest. Denies any headache or visual changes. Lipase 08168, AST 401, ALT 249, Bilirubin 1.4. CT abdomen confirms pancreatic inflammation, peripancreatic fluid and inflammatory changes around the pancreas consistent with pancreatitis. Cholelithiasis and 1.4cm uterine fibroid as well as possible left salpingitis. Admitted for further care GI, General surgery, ID, Pulm consulted. 07/04: Overnight per report no urine output. Added dilaudid for pain, PICC placed per IR. Renal US negative.Seen bedside in ICU, given 2L additional NSS and albumin infusion. Still hypotensive, started on levophed. Repeat CT abdomen with necrosis. Updated her fiancee 07/05: Sats are only 87% on nasal cannula oxygen. Dialysis catheter per nephrology 07/06: She is now on BiPAP appears more ill, now on dialysis 07/07: Seen on BiPAP. Her mother and another family member are present and seemed to be good support for her. Currently on dialysis. Appears critically ill 07/08: Overnight Tmax 101.7 , still on BiPAP FiO2 40%, still on low dose Levophed gtt, TPN initiated. On dialysis Overnight still febrile. Dialysis today. She wakes up and responds to pain. No CP. Vitals Vitals Vital Signs Date Time Temp Pulse Resp B/P (MAP) Pulse Ox O2 Delivery O2 Flow Rate FiO2 07/26/19 13:58 19 98 Ventilator 07/26/19 13:28 6.0 07/26/19 10:00 86 107/61 (76) 07/26/19 09:00 97.0 97.0 Physical Exam Physical Exam GENERAL: Orally intubated/sedated - generalized anasarca HEENT: Pupils equal, ETT, dobhoff + NECK: Supple LUNGS: Diminished aeration bases HEART: S1, S2, regular ABDOMEN: Distended, hypoactive BS, Rectal tube in place : Lind EXTREMITIES: Generalized edema, no cyanosis - some mottling, Rooke boots & SCDs bilaterally DERMATOLOGIC: Warm and dry. No generalized rash. CENTRAL NERVOUS SYSTEM: Sedated RIJ Temp HDC, RUE-PICC Lt IJ removed 07/25 Chestwall line present General: Other (sedated ) Heart: Other (increased rate) Lungs: Other (dimished in BLL) Abdomen: Other (distended, tight abdomen ) Extremities: No edema, Other (SOME CLUBBING ) Skin: Other (mottling noted to extremities ) Labs LABS Laboratory Tests Test 07/25/19 19:07 07/26/19 00:27 07/26/19 06:45 07/26/19 06:49 Glucose (Fingerstick) 182 mg/dL (70-99) 170 mg/dL (70-99) 145 mg/dL (70-99) White Blood Count 11.0 x10^3/uL (4.0-11.0) Red Blood Count 2.50 x10^6/uL (3.50-5.40) Hemoglobin 8.0 g/dL (12.0-15.5) Hematocrit 24.9 % (36.0-47.0) Mean Corpuscular Volume 99 fL (79-100) Mean Corpuscular Hemoglobin 32 pg (25-35) Mean Corpuscular Hemoglobin Concent 32 g/dL (31-37) Red Cell Distribution Width 18.9 % (11.5-14.5) Platelet Count 270 x10^3/uL (140-400) Sodium Level 139 mmol/L (136-145) Potassium Level 4.6 mmol/L (3.5-5.1) Chloride Level 104 mmol/L (98-107) Carbon Dioxide Level 25 mmol/L (21-32) Anion Gap 10 (6-14) Blood Urea Nitrogen 73 mg/dL (7-20) Creatinine 2.3 mg/dL (0.6-1.0) Estimated GFR (Cockcroft-Gault) 22.5 Glucose Level 155 mg/dL (70-99) Calcium Level 8.9 mg/dL (8.5-10.1) Phosphorus Level 5.8 mg/dL (2.6-4.7) Albumin 2.9 g/dL (3.4-5.0) Test 07/26/19 08:00 O2 Saturation 96 % (92-99) Arterial Blood pH 7.30 (7.35-7.45) Arterial Blood pCO2 at Patient Temp 45 mmHg (35-46) Arterial Blood pO2 at Patient Temp 95 mmHg (75-108) Arterial Blood HCO3 22 mmol/L (21-28) Arterial Blood Base Excess -5 mmol/L (-3-3) FiO2 40 Assessment and Plan Assessmemt and Plan Problems Medical Problems: (1) Acute pancreatitis Status: Acute (2) Cholelithiasis Status: Acute Comment Review of Relevant I have reviewed the following items kolby (where applicable) has been applied. Labs Laboratory Tests Test 07/24/19 18:09 4/5/20 23:55 07/25/19 05:26 07/25/19 05:45 Glucose (Fingerstick) 133 mg/dL (70-99) 158 mg/dL (70-99) 157 mg/dL (70-99) Hemoglobin 7.8 g/dL (12.0-15.5) Sodium Level 139 mmol/L (136-145) Potassium Level 4.2 mmol/L (3.5-5.1) Chloride Level 103 mmol/L (98-107) Carbon Dioxide Level 25 mmol/L (21-32) Anion Gap 11 (6-14) Blood Urea Nitrogen 48 mg/dL (7-20) Creatinine 1.8 mg/dL (0.6-1.0) Estimated GFR (Cockcroft-Gault) 29.9 Glucose Level 167 mg/dL (70-99) Calcium Level 8.6 mg/dL (8.5-10.1) Phosphorus Level 3.9 mg/dL (2.6-4.7) Magnesium Level 1.8 mg/dL (1.8-2.4) Albumin 2.6 g/dL (3.4-5.0) Test 07/25/19 07:40 07/25/19 11:21 07/25/19 19:07 07/26/19 00:27 O2 Saturation 97 % (92-99) Arterial Blood pH 7.42 (7.35-7.45) Arterial Blood pCO2 at Patient Temp 37 mmHg (35-46) Arterial Blood pO2 at Patient Temp 105 mmHg (75-108) Arterial Blood HCO3 24 mmol/L (21-28) Arterial Blood Base Excess -1 mmol/L (-3-3) FiO2 40 Glucose (Fingerstick) 169 mg/dL (70-99) 182 mg/dL (70-99) 170 mg/dL (70-99) Test 07/26/19 06:45 07/26/19 06:49 07/26/19 08:00 White Blood Count 11.0 x10^3/uL (4.0-11.0) Red Blood Count 2.50 x10^6/uL (3.50-5.40) Hemoglobin 8.0 g/dL (12.0-15.5) Hematocrit 24.9 % (36.0-47.0) Mean Corpuscular Volume 99 fL (79-100) Mean Corpuscular Hemoglobin 32 pg (25-35) Mean Corpuscular Hemoglobin Concent 32 g/dL (31-37) Red Cell Distribution Width 18.9 % (11.5-14.5) Platelet Count 270 x10^3/uL (140-400) Sodium Level 139 mmol/L (136-145) Potassium Level 4.6 mmol/L (3.5-5.1) Chloride Level 104 mmol/L (98-107) Carbon Dioxide Level 25 mmol/L (21-32) Anion Gap 10 (6-14) Blood Urea Nitrogen 73 mg/dL (7-20) Creatinine 2.3 mg/dL (0.6-1.0) Estimated GFR (Cockcroft-Gault) 22.5 Glucose Level 155 mg/dL (70-99) Calcium Level 8.9 mg/dL (8.5-10.1) Phosphorus Level 5.8 mg/dL (2.6-4.7) Albumin 2.9 g/dL (3.4-5.0) Glucose (Fingerstick) 145 mg/dL (70-99) O2 Saturation 96 % (92-99) Arterial Blood pH 7.30 (7.35-7.45) Arterial Blood pCO2 at Patient Temp 45 mmHg (35-46) Arterial Blood pO2 at Patient Temp 95 mmHg (75-108) Arterial Blood HCO3 22 mmol/L (21-28) Arterial Blood Base Excess -5 mmol/L (-3-3) FiO2 40 Laboratory Tests Test 07/25/19 19:07 07/26/19 00:27 07/26/19 06:45 07/26/19 06:49 Glucose (Fingerstick) 182 mg/dL (70-99) 170 mg/dL (70-99) 145 mg/dL (70-99) White Blood Count 11.0 x10^3/uL (4.0-11.0) Red Blood Count 2.50 x10^6/uL (3.50-5.40) Hemoglobin 8.0 g/dL (12.0-15.5) Hematocrit 24.9 % (36.0-47.0) Mean Corpuscular Volume 99 fL (79-100) Mean Corpuscular Hemoglobin 32 pg (25-35) Mean Corpuscular Hemoglobin Concent 32 g/dL (31-37) Red Cell Distribution Width 18.9 % (11.5-14.5) Platelet Count 270 x10^3/uL (140-400) Sodium Level 139 mmol/L (136-145) Potassium Level 4.6 mmol/L (3.5-5.1) Chloride Level 104 mmol/L (98-107) Carbon Dioxide Level 25 mmol/L (21-32) Anion Gap 10 (6-14) Blood Urea Nitrogen 73 mg/dL (7-20) Creatinine 2.3 mg/dL (0.6-1.0) Estimated GFR (Cockcroft-Gault) 22.5 Glucose Level 155 mg/dL (70-99) Calcium Level 8.9 mg/dL (8.5-10.1) Phosphorus Level 5.8 mg/dL (2.6-4.7) Albumin 2.9 g/dL (3.4-5.0) Test 07/26/19 08:00 O2 Saturation 96 % (92-99) Arterial Blood pH 7.30 (7.35-7.45) Arterial Blood pCO2 at Patient Temp 45 mmHg (35-46) Arterial Blood pO2 at Patient Temp 95 mmHg (75-108) Arterial Blood HCO3 22 mmol/L (21-28) Arterial Blood Base Excess -5 mmol/L (-3-3) FiO2 40 Microbiology 07/24/19 Blood Culture - Preliminary, Resulted NO GROWTH AFTER 2 DAYS 07/23/19 Urine Culture - Final, Complete 07/23/19 Urine Culture Result 1 (ALEXANDRA) - Final, Complete Medications Current Medications Sodium Chloride 1,000 ml @ 1,000 mls/hr Q1H IV Last administered on 07/04/19at 03:00; Start 07/04/19 at 03:00; Stop 07/04/19 at 03:59; Status DC Ondansetron HCl (Zofran) 4 mg 1X ONCE IVP Last administered on 07/04/19at 03:27; Start 07/04/19 at 03:00; Stop 07/04/19 at 03:01; Status DC Morphine Sulfate (Morphine Sulfate) 4 mg 1X ONCE IV ; Start 07/04/19 at 03:00; Stop 07/04/19 at 03:01; Status Cancel Ketorolac Tromethamine (Toradol 30mg Vial) 30 mg 1X ONCE IV Last administered on 07/04/19at 02:54; Start 07/04/19 at 03:00; Stop 07/04/19 at 03:01; Status DC Fentanyl Citrate (Fentanyl 2ml Vial) 25 mcg 1X ONCE IVP Last administered on 07/04/19at 03:23; Start 07/04/19 at 03:30; Stop 07/04/19 at 03:31; Status DC Fentanyl Citrate (Fentanyl 2ml Vial) 100 mcg STK-MED ONCE .ROUTE ; Start 07/04/19 at 03:18; Stop 07/04/19 at 03:18; Status DC Iohexol (Omnipaque 350 Mg/ml) 90 ml 1X ONCE IV Last administered on 07/04/19at 03:25; Start 07/04/19 at 03:30; Stop 07/04/19 at 03:31; Status DC Info (CONTRAST GIVEN -- Rx MONITORING) 1 each PRN DAILY PRN MC SEE COMMENTS; Start 07/04/19 at 03:30; Stop 07/06/19 at 03:29; Status DC Hydromorphone HCl (Dilaudid) 0.5 mg 1X ONCE IV Last administered on 07/04/19at 03:55; Start 07/04/19 at 04:30; Stop 07/04/19 at 04:32; Status DC Ondansetron HCl (Zofran) 4 mg PRN Q8HRS PRN IV NAUSEA/VOMITING 1ST CHOICE; Start 07/04/19 at 05:00; Stop 07/04/19 at 09:27; Status DC Morphine Sulfate (Morphine Sulfate) 2 mg PRN Q2HR PRN IV SEVERE PAIN 7-10 Last administered on 07/05/19at 12:26; Start 07/04/19 at 05:00; Stop 07/05/19 at 14:15; Status DC Sodium Chloride 1,000 ml @ 125 mls/hr Q8H IV Last administered on 07/04/19at 20:56; Start 07/04/19 at 05:00; Stop 07/05/19 at 04:59; Status DC Hydromorphone HCl (Dilaudid) 0.5 mg PRN Q3HRS PRN IV SEVERE PAIN 7-10 Last administered on 07/05/19at 10:06; Start 07/04/19 at 05:00; Stop 07/05/19 at 12:01; Status DC Piperacillin Sod/ Tazobactam Sod 4.5 gm/Sodium Chloride 100 ml @ 200 mls/hr 1X ONCE IV Last administered on 07/04/19at 05:44; Start 07/04/19 at 06:00; Stop 07/04/19 at 06:29; Status DC Ondansetron HCl (Zofran) 4 mg PRN Q4HRS PRN IV NAUSEA/VOMITING 1ST CHOICE Last administered on 07/09/19at 16:15; Start 07/04/19 at 09:30 Insulin Human Lispro (HumaLOG) 0-9 UNITS Q6HRS SQ Last administered on 07/26/19at 00:30; Start 07/04/19 at 09:30 Dextrose (Dextrose 50%-Water Syringe) 12.5 gm PRN Q15MIN PRN IV SEE COMMENTS; Start 07/04/19 at 09:30 Pantoprazole Sodium (PROTONIX VIAL for IV PUSH) 40 mg DAILYAC IVP Last administered on 07/26/19at 09:43; Start 07/04/19 at 11:30 Prochlorperazine Edisylate (Compazine) 10 mg PRN Q6HRS PRN IV NAUSEA/VOMITING, 2nd CHOICE Last administered on 07/05/19at 00:42; Start 07/04/19 at 17:45 Atenolol (Tenormin) 100 mg DAILY PO ; Start 07/05/19 at 09:00; Stop 07/04/19 at 20:08; Status DC Metoprolol Tartrate (Lopressor Vial) 2.5 mg Q6HRS IVP Last administered on 07/05/19at 05:51; Start 07/04/19 at 20:15; Stop 07/05/19 at 10:02; Status DC Metoprolol Tartrate (Lopressor Vial) 5 mg Q6HRS IVP Last administered on 07/14/19at 00:12; Start 07/05/19 at 10:15; Stop 07/16/19 at 08:48; Status DC Hydromorphone HCl (Dilaudid) 1 mg PRN Q3HRS PRN IV SEVERE PAIN 7-10 Last administered on 07/11/19at 05:13; Start 07/05/19 at 12:00; Stop 07/19/19 at 00:25; Status DC Lidocaine HCl (Buffered Lidocaine 1%) 3 ml STK-MED ONCE .ROUTE ; Start 07/05/19 at 12:55; Stop 07/05/19 at 12:56; Status DC Albumin Human 500 ml @ 125 mls/hr 1X ONCE IV Last administered on 07/05/19at 14:33; Start 07/05/19 at 14:30; Stop 07/05/19 at 18:32; Status DC Norepinephrine Bitartrate 8 mg/ Dextrose 258 ml @ 17.299 mls/ hr CONT PRN IV PER PROTOCOL Last administered on 07/24/19at 21:18; Start 07/05/19 at 15:30 Sodium Chloride 1,000 ml @ 125 mls/hr Q8H IV Last administered on 07/05/19at 21:04; Start 07/05/19 at 16:00; Stop 07/06/19 at 02:42; Status DC Albumin Human 500 ml @ 125 mls/hr PRN BID PRN IV After every 2L NSS & BP < 90mm Last administered on 07/20/19at 14:21; Start 07/05/19 at 16:00 Iohexol (Omnipaque 300 Mg/ml) 60 ml 1X ONCE IV Last administered on 07/05/19at 17:20; Start 07/05/19 at 17:00; Stop 07/05/19 at 17:01; Status DC Info (CONTRAST GIVEN -- Rx MONITORING) 1 each PRN DAILY PRN MC SEE COMMENTS; Start 07/05/19 at 17:00; Stop 07/07/19 at 16:59; Status DC Meropenem 1 gm/ Sodium Chloride 100 ml @ 200 mls/hr Q8HRS IV Last administered on 07/06/19at 05:45; Start 07/05/19 at 20:00; Stop 07/06/19 at 08:48; Status DC Furosemide (Lasix) 40 mg 1X ONCE IVP Last administered on 07/05/19at 22:12; Start 07/05/19 at 22:30; Stop 07/05/19 at 22:31; Status DC Calcium Chloride 1000 mg/Sodium Chloride 110 ml @ 220 mls/hr 1X ONCE IV Last administered on 07/05/19at 22:11; Start 07/05/19 at 22:30; Stop 07/05/19 at 22:59; Status DC Albuterol Sulfate (Ventolin Neb Soln) 2.5 mg 1X ONCE NEB Last administered on 07/06/19at 00:56; Start 07/05/19 at 22:30; Stop 07/05/19 at 22:31; Status DC Insulin Human Regular (HumuLIN R VIAL) 5 unit 1X ONCE IV Last administered on 07/05/19at 22:14; Start 07/05/19 at 22:30; Stop 07/05/19 at 22:31; Status DC Magnesium Sulfate 50 ml @ 25 mls/hr 1X ONCE IV Last administered on 07/06/19at 02:57; Start 07/06/19 at 03:00; Stop 07/06/19 at 04:59; Status DC Calcium Gluconate 1000 mg/Sodium Chloride 110 ml @ 220 mls/hr 1X ONCE IV Last administered on 07/06/19at 02:46; Start 07/06/19 at 03:00; Stop 07/06/19 at 03:29; Status DC Sodium Chloride 1,000 ml @ 200 mls/hr Q5H IV Last administered on 07/06/19at 02:46; Start 07/06/19 at 03:00; Stop 07/06/19 at 10:21; Status DC Calcium Gluconate 1000 mg/Sodium Chloride 110 ml @ 220 mls/hr 1X ONCE IV Last administered on 07/06/19at 03:21; Start 07/06/19 at 03:30; Stop 07/06/19 at 03:59; Status DC Sodium Bicarbonate 50 meq/Sodium Chloride 1,050 ml @ 75 mls/hr Q14H IV Last ad ministered on 07/10/19at 21:10; Start 07/06/19 at 07:30; Stop 07/11/19 at 10:28; Status DC Calcium Gluconate 2000 mg/Sodium Chloride 120 ml @ 220 mls/hr 1X ONCE IV Last administered on 07/06/19at 09:05; Start 07/06/19 at 07:30; Stop 07/06/19 at 08:02; Status DC Lidocaine HCl (Xylocaine-Mpf 1% 2ml Vial) 2 ml STK-MED ONCE .ROUTE ; Start 07/06/19 at 08:47; Stop 07/06/19 at 08:47; Status DC Meropenem 500 mg/ Sodium Chloride 50 ml @ 100 mls/hr Q12HR IV Last administered on 07/11/19at 21:01; Start 07/06/19 at 18:00; Stop 07/12/19 at 07:58; Status DC Lidocaine HCl (Buffered Lidocaine 1%) 3 ml STK-MED ONCE .ROUTE ; Start 07/06/19 at 09:46; Stop 07/06/19 at 09:46; Status DC Lidocaine HCl (Buffered Lidocaine 1%) 6 ml 1X ONCE INJ Last administered on 07/06/19at 10:26; Start 07/06/19 at 10:15; Stop 07/06/19 at 10:16; Status DC Info (Tpn Per Pharmacy) 1 each PRN DAILY PRN MC SEE COMMENTS Last administered on 07/26/19at 13:07; Start 07/06/19 at 12:00 Sodium Chloride 1,000 ml @ 1,000 mls/hr Q1H PRN IV hypotension; Start 07/06/19 at 12:07; Stop 07/06/19 at 18:06; Status DC Diphenhydramine HCl (Benadryl) 25 mg 1X PRN PRN IV ITCHING; Start 07/06/19 at 12:15; Stop 07/07/19 at 12:14; Status DC Diphenhydramine HCl (Benadryl) 25 mg 1X PRN PRN IV ITCHING; Start 07/06/19 at 12:15; Stop 07/07/19 at 12:14; Status DC Sodium Chloride 1,000 ml @ 400 mls/hr Q2H30M PRN IV PATENCY; Start 07/06/19 at 12:07; Stop 07/07/19 at 00:06; Status DC Info (PHARMACY MONITORING -- do not chart) 1 each PRN DAILY PRN MC SEE COMMENTS; Start 07/06/19 at 12:15; Stop 07/08/19 at 08:13; Status DC Sodium Chloride 90 meq/Calcium Gluconate 10 meq/ Multivitamins 10 ml/Chromium/ Copper/Manganese/ Seleni/Zn 1 ml/ Total Parenteral Nutrition/Amino Acids/Dextrose/ Fat Emulsion Intravenous 55.005 ml @ 2.292 mls/hr TPN CONT IV ; Start 07/06/19 at 22:00; Stop 07/06/19 at 12:33; Status DC Info (Tpn Per Pharmacy) 1 each PRN DAILY PRN MC SEE COMMENTS; Start 07/06/19 at 12:30; Status UNV Sodium Chloride 90 meq/Calcium Gluconate 10 meq/ Multivitamins 10 ml/Chromium/ Copper/Manganese/ Seleni/Zn 0.5 ml/ Total Parenteral Nutrition/Amino Acids/Dextrose/ Fat Emulsion Intravenous 1,512 ml @ 63 mls/hr TPN CONT IV Last administered on 07/06/19at 22:06; Start 07/06/19 at 22:00; Stop 07/07/19 at 21:59; Status DC Calcium Carbonate/ Glycine (Tums) 500 mg PRN AFTMEALHC PRN PO INDIGESTION; Start 07/06/19 at 17:45 Calcium Gluconate (Calcium Gluconate) 2,000 mg 1X ONCE IVP Last administered on 07/07/19at 02:19; Start 07/07/19 at 02:15; Stop 07/07/19 at 02:16; Status DC Calcium Chloride 3000 mg/Sodium Chloride 1,030 ml @ 50 mls/hr [id number] IV Last administered on 07/09/19at 02:17; Start 07/07/19 at 08:00; Stop 07/09/19 at 15:23; Status DC Lorazepam (Ativan Inj) 1 mg PRN Q4HRS PRN IVP ANXIETY / AGITATION Last administered on 07/11/19at 00:34; Start 07/07/19 at 09:00 Sodium Chloride 1,000 ml @ 1,000 mls/hr Q1H PRN IV hypotension; Start 07/07/19 at 08:56; Stop 07/07/19 at 14:55; Status DC Albumin Human 200 ml @ 200 mls/hr 1X PRN PRN IV Hypotension; Start 07/07/19 at 09:00; Stop 07/07/19 at 14:59; Status DC Diphenhydramine HCl (Benadryl) 25 mg 1X PRN PRN IV ITCHING; Start 07/07/19 at 09:00; Stop 07/08/19 at 08:59; Status DC Diphenhydramine HCl (Benadryl) 25 mg 1X PRN PRN IV ITCHING; Start 07/07/19 at 09:00; Stop 07/08/19 at 08:59; Status DC Sodium Chloride 1,000 ml @ 400 mls/hr Q2H30M PRN IV PATENCY; Start 07/07/19 at 08:56; Stop 07/07/19 at 20:55; Status DC Info (PHARMACY MONITORING -- do not chart) 1 each PRN DAILY PRN MC SEE COMMENTS; Start 07/07/19 at 09:00; Status UNV Info (PHARMACY MONITORING -- do not chart) 1 each PRN DAILY PRN MC SEE COMMENTS; Start 07/07/19 at 09:00; Stop 07/08/19 at 08:13; Status DC Digoxin (Lanoxin) 500 mcg 1X ONCE IV Last administered on 07/07/19at 10:04; Start 07/07/19 at 10:00; Stop 07/07/19 at 10:01; Status DC Digoxin (Lanoxin) 125 mcg 1X ONCE IV Last administered on 07/07/19at 17:10; Start 07/07/19 at 18:00; Stop 07/07/19 at 18:01; Status DC Magnesium Sulfate 100 ml @ 25 mls/hr 1X ONCE IV Last administered on 07/07/19at 12:48; Start 07/07/19 at 13:00; Stop 07/07/19 at 16:59; Status DC Sodium Chloride 90 meq/Magnesium Sulfate 10 meq/ Calcium Gluconate 20 meq/ Multivitamins 10 ml/Chromium/ Copper/Manganese/ Seleni/Zn 0.5 ml/ Total Parenteral Nutrition/Amino Acids/Dextrose/ Fat Emulsion Intravenous 1,512 ml @ 63 mls/hr TPN CONT IV Last administered on 07/07/19at 22:25; Start 07/07/19 at 22:00; Stop 07/08/19 at 21:59; Status DC Sodium Chloride 1,000 ml @ 1,000 mls/hr Q1H PRN IV hypotension; Start 07/08/19 at 08:05; Stop 07/08/19 at 14:04; Status DC Albumin Human 200 ml @ 200 mls/hr 1X ONCE IV Last administered on 07/08/19at 08:57; Start 07/08/19 at 08:15; Stop 07/08/19 at 09:14; Status DC Diphenhydramine HCl (Benadryl) 25 mg 1X PRN PRN IV ITCHING; Start 07/08/19 at 08:15; Stop 07/09/19 at 08:14; Status DC Diphenhydramine HCl (Benadryl) 25 mg 1X PRN PRN IV ITCHING; Start 07/08/19 at 08:15; Stop 07/09/19 at 08:14; Status DC Sodium Chloride 1,000 ml @ 400 mls/hr Q2H30M PRN IV PATENCY; Start 07/08/19 at 08:05; Stop 07/08/19 at 20:04; Status DC Info (PHARMACY MONITORING -- do not chart) 1 each PRN DAILY PRN MC SEE COMMENTS; Start 07/08/19 at 08:15; Stop 07/12/19 at 07:57; Status DC Sodium Chloride 90 meq/Potassium Chloride 15 meq/ Potassium Phosphate 10 mmol/ Magnesium Sulfate 10 meq/Calcium Gluconate 20 meq/ Multivitamins 10 ml/Chromium/ Copper/Manganese/ Seleni/Zn 0.5 ml/ Total Parenteral Nutrition/Amino Acids/Dextrose/ Fat Emulsion Intravenous 1,512 ml @ 63 mls/hr TPN CONT IV Last administered on 07/08/19at 21:01; Start 07/08/19 at 22:00; Stop 07/09/19 at 21:59; Status DC Potassium Chloride/Water 100 ml @ 100 mls/hr 1X ONCE IV Last administered on 07/08/19at 14:09; Start 07/08/19 at 14:00; Stop 07/08/19 at 14:59; Status DC Benzocaine (Hurricaine One) 1 spray 1X ONCE MM Last administered on 07/08/19at 16:38; Start 07/08/19 at 14:30; Stop 07/08/19 at 14:31; Status DC Lidocaine HCl (Glydo (Lidocaine) Jelly) 1 ramu 1X ONCE MM Last administered on 07/08/19at 16:38; Start 07/08/19 at 14:30; Stop 07/08/19 at 14:31; Status DC Linezolid/Dextrose 300 ml @ 300 mls/hr Q12HR IV Last administered on 07/14/19at 21:04; Start 07/08/19 at 20:00; Stop 07/15/19 at 07:50; Status DC Acetaminophen (Tylenol) 650 mg PRN Q6HRS PRN PO MILD PAIN / TEMP; Start 07/09/19 at 03:30; Stop 07/09/19 at 03:36; Status DC Acetaminophen (Tylenol) 650 mg PRN Q6HRS PRN PEG MILD PAIN / TEMP Last administered on 07/14/19at 07:35; Start 07/09/19 at 03:36 Sodium Chloride 1,000 ml @ 1,000 mls/hr Q1H PRN IV hypotension; Start 07/09/19 at 07:50; Stop 07/09/19 at 13:49; Status DC Albumin Human 200 ml @ 200 mls/hr 1X PRN PRN IV Hypotension; Start 07/09/19 at 08:00; Stop 07/09/19 at 13:59; Status DC Sodium Chloride (Normal Saline Flush) 10 ml 1X PRN PRN IV AP catheter pack; Start 07/09/19 at 08:00; Stop 07/10/19 at 07:59; Status DC Sodium Chloride (Normal Saline Flush) 10 ml 1X PRN PRN IV TRAVELING ENGINEER catheter pack; Start 07/09/19 at 08:00; Stop 07/10/19 at 07:59; Status DC Sodium Chloride 1,000 ml @ 400 mls/hr Q2H30M PRN IV PATENCY; Start 07/09/19 at 07:50; Stop 07/09/19 at 19:49; Status DC Info (PHARMACY MONITORING -- do not chart) 1 each PRN DAILY PRN MC SEE COMMENTS; Start 07/09/19 at 08:00; Status UNV Info (PHARMACY MONITORING -- do not chart) 1 each PRN DAILY PRN MC SEE COMMENTS; Start 07/09/19 at 08:00; Stop 07/11/19 at 08:25; Status DC Sodium Chloride 90 meq/Potassium Chloride 15 meq/ Potassium Phosphate 10 mmol/ Magnesium Sulfate 10 meq/Calcium Gluconate 20 meq/ Multivitamins 10 ml/Chromium/ Copper/Manganese/ Seleni/Zn 0.5 ml/ Total Parenteral Nutrition/Amino Acids/Dextrose/ Fat Emulsion Intravenous 1,512 ml @ 63 mls/hr TPN CONT IV Last administered on 07/09/19at 20:57; Start 07/09/19 at 22:00; Stop 07/10/19 at 21:59; Status DC Sodium Chloride 90 meq/Potassium Chloride 15 meq/ Potassium Phosphate 15 mmol/ Magnesium Sulfate 10 meq/Calcium Gluconate 20 meq/ Multivitamins 10 ml/Chromium/ Copper/Manganese/ Seleni/Zn 0.5 ml/ Total Parenteral Nutrition/Amino Acids/Dextrose/ Fat Emulsion Intravenous 1,512 ml @ 63 mls/hr TPN CONT IV ; Start 07/10/19 at 22:00; Stop 07/10/19 at 14:16; Status DC Sodium Chloride 90 meq/Potassium Chloride 15 meq/ Potassium Phosphate 15 mmol/ Magnesium Sulfate 10 meq/Calcium Gluconate 20 meq/ Multivitamins 10 ml/Chromium/ Copper/Manganese/ Seleni/Zn 0.5 ml/ Total Parenteral Nutrition/Amino Acids/Dextrose/ Fat Emulsion Intravenous 1,200 ml @ 50 mls/hr TPN CONT IV ; Start 07/10/19 at 22:00; Stop 07/10/19 at 14:17; Status DC Sodium Chloride 90 meq/Potassium Chloride 15 meq/ Potassium Phosphate 10 mmol/ Magnesium Sulfate 10 meq/Calcium Gluconate 20 meq/ Multivitamins 10 ml/Chromium/ Copper/Manganese/ Seleni/Zn 0.5 ml/ Total Parenteral Nutrition/Amino Acids/D extrose/ Fat Emulsion Intravenous 1,200 ml @ 50 mls/hr TPN CONT IV Last administered on 07/10/19at 23:29; Start 07/10/19 at 22:00; Stop 07/11/19 at 21:59; Status DC Sodium Chloride 1,000 ml @ 1,000 mls/hr Q1H PRN IV hypotension; Start 07/11/19 at 07:28; Stop 07/11/19 at 13:27; Status DC Albumin Human 200 ml @ 200 mls/hr 1X ONCE IV Last administered on 07/11/19at 08:51; Start 07/11/19 at 07:30; Stop 07/11/19 at 08:29; Status DC Diphenhydramine HCl (Benadryl) 25 mg 1X PRN PRN IV ITCHING; Start 07/11/19 at 07:30; Stop 07/12/19 at 07:29; Status DC Diphenhydramine HCl (Benadryl) 25 mg 1X PRN PRN IV ITCHING; Start 07/11/19 at 0 7:30; Stop 07/12/19 at 07:29; Status DC Sodium Chloride 1,000 ml @ 400 mls/hr Q2H30M PRN IV PATENCY; Start 07/11/19 at 07:28; Stop 07/11/19 at 19:27; Status DC Info (PHARMACY MONITORING -- do not chart) 1 each PRN DAILY PRN MC SEE COMMENTS; Start 07/11/19 at 07:30; Stop 07/22/19 at 13:01; Status DC Metronidazole 100 ml @ 100 mls/hr Q6HRS IV Last administered on 07/26/19at 09:44 ; Start 07/11/19 at 08:30 Micafungin Sodium 100 mg/Dextrose 100 ml @ 100 mls/hr Q24H IV Last administered on 07/26/19at 10:00; Start 07/11/19 at 09:00 Propofol 0 ml @ As Directed STK-MED ONCE IV ; Start 07/11/19 at 07:53; Stop 07/11/19 at 07:53; Status DC Etomidate (Amidate) 20 mg STK-MED ONCE IV ; Start 07/11/19 at 07:53; Stop 07/11/19 at 07:54; Status DC Midazolam HCl (Versed) 5 mg STK-MED ONCE .ROUTE ; Start 07/11/19 at 07:57; Stop 07/11/19 at 07:57; Status DC Fentanyl Citrate 30 ml @ 0 mls/hr CONT PRN IV SEE PROTOCOL Last administered on 07/26/19at 13:28; Start 07/11/19 at 08:15 Artificial Tears (Artificial Tears) 1 drop PRN Q1HR PRN OU DRY EYE, 1st choice; Start 07/11/19 at 08:15 Midazolam HCl 50 mg/Sodium Chloride 50 ml @ 0 mls/hr CONT PRN IV SEE PROTOCOL Last administered on 07/14/19at 22:39; Start 07/11/19 at 08:15; Stop 07/16/19 at 15:59; Status DC Etomidate (Amidate) 8 mg 1X ONCE IV Last administered on 07/11/19at 08:33; Start 07/11/19 at 08:30; Stop 07/11/19 at 08:31; Status DC Succinylcholine Chloride (Anectine) 120 mg 1X ONCE IV Last administered on 07/11/19at 08:34; Start 07/11/19 at 08:30; Stop 07/11/19 at 08:31; Status DC Midazolam HCl (Versed) 5 mg 1X ONCE IV ; Start 07/11/19 at 08:30; Stop 07/11/19 at 08:31; Status DC Potassium Chloride 15 meq/ Bicarbonate Dialysis Soln w/ out KCl 5,007.5 ml @ 1,000 mls/ hr Q5H1M IV Last administered on 07/12/19at 11:11; Start 07/11/19 at 12:00; Stop 07/12/19 at 11:15; Status DC Potassium Chloride 15 meq/ Bicarbonate Dialysis Soln w/ out KCl 5,007.5 ml @ 1,000 mls/ hr Q5H1M IV Last administered on 07/12/19at 11:12; Start 07/11/19 at 12:00; Stop 07/12/19 at 11:17; Status DC Potassium Chloride 15 meq/ Bicarbonate Dialysis Soln w/ out KCl 5,007.5 ml @ 1,000 mls/ hr Q5H1M IV Last administered on 07/12/19at 11:11; Start 07/11/19 at 12:00; Stop 07/12/19 at 11:19; Status DC Sodium Chloride 90 meq/Potassium Chloride 15 meq/ Potassium Phosphate 10 mmol/ Magnesium Sulfate 10 meq/Calcium Gluconate 20 meq/ Multivitamins 10 ml/Chromium/ Copper/Manganese/ Seleni/Zn 0.5 ml/ Total Parenteral Nutrition/Amino Acids/Dextrose/ Fat Emulsion Intravenous 1,400 ml @ 58.333 mls/ hr TPN CONT IV Last administered on 07/11/19at 21:42; Start 07/11/19 at 22:00; Stop 07/12/19 at 21:59; Status DC Heparin Sodium (Porcine) (Heparin Sodium) 5,000 unit Q8HRS SQ Last administered on 07/16/19at 05:55; Start 07/11/19 at 15:00; Stop 07/16/19 at 13:28; Status DC Meropenem 500 mg/ Sodium Chloride 50 ml @ 100 mls/hr Q6HRS IV Last administered on 07/13/19at 06:00; Start 07/12/19 at 09:00; Stop 07/13/19 at 07:29; Status DC Potassium Phosphate 20 mmol/ Sodium Chloride 106.6667 ml @ 51.667 m... 1X ONCE IV Last administered on 07/12/19at 11:22; Start 07/12/19 at 10:15; Stop 07/12/19 at 12:18; Status DC Acetaminophen (Tylenol Supp) 650 mg PRN Q6HRS PRN [place] MILD PAIN / TEMP Last administered on 07/12/19at 10:37; Start 07/12/19 at 10:30 Potassium Chloride/Water 100 ml @ 100 mls/hr Q1H IV Last administered on 07/12/19at 12:12; Start 07/12/19 at 11:00; Stop 07/12/19 at 12:59; Status DC Potassium Chloride 20 meq/ Bicarbonate Dialysis Soln w/ out KCl 5,010 ml @ 1,000 mls/hr Q5H1M IV Last administered on 07/13/19at 08:48; Start 07/12/19 at 12:00; Stop 07/13/19 at 13:03; Status DC Potassium Chloride 20 meq/ Bicarbonate Dialysis Soln w/ out KCl 5,010 ml @ 1,000 mls/hr Q5H1M IV Last administered on 07/17/19at 14:52; Start 07/12/19 at 11:30; Stop 07/17/19 at 19:59; Status DC Potassium Chloride 20 meq/ Bicarbonate Dialysis Soln w/ out KCl 5,010 ml @ 1,000 mls/hr Q5H1M IV Last administered on 07/17/19at 14:53; Start 07/12/19 at 11:30; Stop 07/17/19 at 19:59; Status DC Sodium Chloride 90 meq/Potassium Chloride 15 meq/ Potassium Phosphate 15 mmol/ Magnesium Sulfate 10 meq/Calcium Gluconate 15 meq/ Multivitamins 10 ml/Chromium/ Copper/Manganese/ Seleni/Zn 0.5 ml/ Total Parenteral Nutrition/Amino Acids/Dextrose/ Fat Emulsion Intravenous 1,400 ml @ 58.333 mls/ hr TPN CONT IV Last administered on 07/12/19at 22:17; Start 07/12/19 at 22:00; Stop 07/13/19 at 21:59; Status DC Cefepime HCl (Maxipime) 2 gm Q12HR IVP Last administered on 07/26/19at 09:43; Start 07/13/19 at 09:00 Daptomycin 500 mg/ Sodium Chloride 50 ml @ 100 mls/hr Q48H IV Last administered on 07/25/19at 08:35; Start 07/13/19 at 08:30 Lidocaine HCl (Buffered Lidocaine 1%) 3 ml 1X ONCE INJ Last administered on 07/13/19at 10:27; Start 07/13/19 at 10:30; Stop 07/13/19 at 10:31; Status DC Potassium Phosphate 20 mmol/ Sodium Chloride 106.6667 ml @ 51.667 m... 1X ONCE IV Last administered on 07/13/19at 12:51; Start 07/13/19 at 13:00; Stop 07/13/19 at 15:03; Status DC Sodium Chloride 90 meq/Potassium Chloride 15 meq/ Potassium Phosphate 18 mmol/ Magnesium Sulfate 8 meq/Calcium Gluconate 15 meq/ Multivitamins 10 ml/Chromium/ Copper/Manganese/ Seleni/Zn 0.5 ml/ Total Parenteral Nutrition/Amino Acids/ Dextrose/ Fat Emulsion Intravenous 1,400 ml @ 58.333 mls/ hr TPN CONT IV Last administered on 07/13/19at 22:16; Start 07/13/19 at 22:00; Stop 07/14/19 at 21:59; Status DC Potassium Chloride 20 meq/ Bicarbonate Dialysis Soln w/ out KCl 5,010 ml @ 1,000 mls/hr Q5H1M IV Last administered on 07/17/19at 14:54; Start 07/13/19 at 16:00; Stop 07/17/19 at 19:59; Status DC Multi-Ingred Cream/Lotion/Oil/ Oint (Artificial Tears Eye Ointment) 1 ramu PRN Q1HR PRN OU DRY EYE, 2nd choice Last administered on 07/22/19at 11:05; Start 07/13/19 at 17:30 Sodium Chloride 90 meq/Potassium Chloride 15 meq/ Potassium Phosphate 18 mmol/ Magnesium Sulfate 8 meq/Calcium Gluconate 15 meq/ Multivitamins 10 ml/Chromium/ Copper/Manganese/ Seleni/Zn 0.5 ml/ Total Parenteral Nutrition/Amino Acids/Dextrose/ Fat Emulsion Intravenous 1,400 ml @ 58.333 mls/ hr TPN CONT IV Last administered on 07/14/19at 22:00; Start 07/14/19 at 22:00; Stop 07/15/19 at 21:59; Status DC Albumin Human 500 ml @ 125 mls/hr 1X ONCE IV ; Start 07/14/19 at 14:15; Stop 07/14/19 at 18:14; Status DC Sodium Chloride 90 meq/Potassium Chloride 15 meq/ Potassium Phosphate 18 mmol/ Magnesium Sulfate 8 meq/Calcium Gluconate 15 meq/ Multivitamins 10 ml/Chromium/ Copper/Manganese/ Seleni/Zn 0.5 ml/ Insulin Human Regular 10 unit/ Total Parenteral Nutrition/Amino Acids/Dextrose/ Fat Emulsion Intravenous 1,400 ml @ 58.333 mls/ hr TPN CONT IV Last administered on 07/15/19at 21:43; Start 07/15/19 at 22:00; Stop 07/16/19 at 21:59; Status DC Lidocaine HCl (Buffered Lidocaine 1%) 3 ml STK-MED ONCE .ROUTE ; Start 07/13/19 at 10:00; Stop 07/15/19 at 13:57; Status DC Midazolam HCl 100 mg/Sodium Chloride 100 ml @ 7 mls/hr CONT PRN IV SEE PROTOCOL Last administered on 07/26/19at 13:26; Start 07/16/19 at 16:00 Sodium Chloride 90 meq/Potassium Chloride 15 meq/ Potassium Phosphate 18 mmol/ Magnesium Sulfate 8 meq/Calcium Gluconate 15 meq/ Multivitamins 10 ml/Chromium/ Copper/Manganese/ Seleni/Zn 0.5 ml/ Insulin Human Regular 15 unit/ Total Parenteral Nutrition/Amino Acids/Dextrose/ Fat Emulsion Intravenous 1,400 ml @ 58.333 mls/ hr TPN CONT IV Last administered on 07/16/19at 20:34; Start 07/16/19 at 22:00; Stop 07/17/19 at 21:59; Status DC Info (Icu Electrolyte Protocol) 1 ea CONT PRN PRN MC PER PROTOCOL; Start 07/17/19 at 13:15 Sodium Chloride 90 meq/Potassium Chloride 15 meq/ Potassium Phosphate 18 mmol/ Magnesium Sulfate 8 meq/Calcium Gluconate 15 meq/ Multivitamins 10 ml/Chromium/ Copper/Manganese/ Seleni/Zn 0.5 ml/ Insulin Human Regular 15 unit/ Total Parenteral Nutrition/Amino Acids/Dextrose/ Fat Emulsion Intravenous 1,400 ml @ 58.333 mls/ hr TPN CONT IV Last administered on 07/17/19at 22:05; Start at 22:00; Stop 07/18/19 at 21:59; Status DC Potassium Chloride 15 meq/ Bicarbonate Dialysis Soln w/ out KCl 5,007.5 ml @ 1, 000 mls/ hr Q5H1M IV Last administered on 07/20/19at 18:14; Start 07/17/19 at 20:00; Stop 07/21/19 at 13:08; Status DC Potassium Chloride 15 meq/ Bicarbonate Dialysis Soln w/ out KCl 5,007.5 ml @ 1,000 mls/ hr Q5H1M IV Last administered on 07/20/19at 18:14; Start 07/17/19 at 20:00; Stop 07/21/19 at 13:08; Status DC Potassium Chloride 15 meq/ Bicarbonate Dialysis Soln w/ out KCl 5,007.5 ml @ 1,000 mls/ hr Q5H1M IV Last administered on 07/20/19at 18:14; Start 07/17/19 at 20:00; Stop 07/21/19 at 13:08; Status DC Iohexol (Omnipaque 240 Mg/ml) 30 ml 1X ONCE PO Last administered on 07/18/19at 11:30; Start 07/18/19 at 11:30; Stop 07/18/19 at 11:33; Status DC Info (CONTRAST GIVEN -- Rx MONITORING) 1 each PRN DAILY PRN MC SEE COMMENTS; Start 07/18/19 at 11:45; Stop 07/20/19 at 11:44; Status DC Sodium Chloride 90 meq/Potassium Chloride 15 meq/ Potassium Phosphate 18 mmol/ Magnesium Sulfate 8 meq/Calcium Gluconate 15 meq/ Multivitamins 10 ml/Chromium/ Copper/Manganese/ Seleni/Zn 0.5 ml/ Insulin Human Regular 15 unit/ Total Parenteral Nutrition/Amino Acids/Dextrose/ Fat Emulsion Intravenous 1,400 ml @ 58.333 mls/ hr TPN CONT IV Last administered on 07/18/19at 21:47; Start 07/18/19 at 22:00; Stop 07/19/19 at 21:59; Status DC Sodium Chloride 90 meq/Potassium Chloride 15 meq/ Potassium Phosphate 18 mmol/ Magnesium Sulfate 8 meq/Calcium Gluconate 15 meq/ Multivitamins 10 ml/Chromium/ Copper/Manganese/ Seleni/Zn 0.5 ml/ Insulin Human Regular 20 unit/ Total Parenteral Nutrition/Amino Acids/Dextrose/ Fat Emulsion Intravenous 1,400 ml @ 58.333 mls/ hr TPN CONT IV Last administered on 07/19/19at 21:36; Start 07/19/19 at 22:00; Stop 07/20/19 at 21:59; Status DC Alteplase, Recombinant (Cathflo For Central Catheter Clearance) 1 mg 1X ONCE INT CAT Last administered on 07/19/19at 20:03; Start 07/19/19 at 19:30; Stop 07/19/19 at 19:46; Status DC Alteplase, Recombinant (Cathflo For Central Catheter Clearance) 1 mg 1X ONCE INT CAT Last administered on 07/19/19at 22:05; Start 07/19/19 at 22:00; Stop 07/19/19 at 22:01; Status DC Sodium Chloride 90 meq/Potassium Chloride 15 meq/ Potassium Phosphate 18 mmol/ Magnesium Sulfate 8 meq/Calcium Gluconate 15 meq/ Multivitamins 10 ml/Chromium/ Copper/Manganese/ Seleni/Zn 0.5 ml/ Insulin Human Regular 20 unit/ Total Parenteral Nutrition/Amino Acids/Dextrose/ Fat Emulsion Intravenous 1,400 ml @ 58.333 mls/ hr TPN CONT IV Last administered on 07/20/19at 21:30; Start 07/20/19 at 22:00; Stop 07/21/19 at 21:59; Status DC Dexmedetomidine HCl 400 mcg/ Sodium Chloride 100 ml @ 0 mls/hr CONT PRN IV ANX IETY / AGITATION Last administered on 07/26/19at 13:25; Start 07/21/19 at 08:15 Sodium Chloride 500 ml @ 500 mls/hr 1X PRN PRN IV ELEVATED BP, SEE COMMENTS; Start 07/21/19 at 08:15 Atropine Sulfate (ATROPINE 0.5mg SYRINGE) 0.5 mg PRN Q5MIN PRN IV SEE COMMENTS; Start 07/21/19 at 08:15 Furosemide (Lasix) 20 mg 1X ONCE IVP Last administered on 07/21/19at 08:19; Start 07/21/19 at 08:15; Stop 07/21/19 at 08:16; Status DC Lidocaine HCl (Buffered Lidocaine 1%) 3 ml STK-MED ONCE .ROUTE ; Start 07/21/19 at 08:39; Stop 07/21/19 at 08:39; Status DC Lidocaine HCl (Buffered Lidocaine 1%) 6 ml 1X ONCE INJ Last administered on 07/21/19at 09:05; Start 07/21/19 at 09:00; Stop 07/21/19 at 09:06; Status DC Sodium Chloride 90 meq/Potassium Chloride 15 meq/ Potassium Phosphate 18 mmol/ Magnesium Sulfate 8 meq/Calcium Gluconate 15 meq/ Multivitamins 10 ml/Chromium/ Copper/Manganese/ Seleni/Zn 0.5 ml/ Insulin Human Regular 20 unit/ Total Parenteral Nutrition/Amino Acids/Dextrose/ Fat Emulsion Intravenous 1,400 ml @ 58.333 mls/ hr TPN CONT IV Last administered on 07/21/19at 22:45; Start 07/21/19 at 22:00; Stop 07/22/19 at 21:59; Status DC Sodium Chloride 1,000 ml @ 1,000 mls/hr Q1H PRN IV hypotension; Start 07/22/19 at 07:30; Stop 07/22/19 at 13:29; Status DC Albumin Human 200 ml @ 200 mls/hr 1X PRN PRN IV Hypotension Last administered on 07/22/19at 09:36; Start 07/22/19 at 07:30; Stop 07/22/19 at 13:29; Status DC Sodium Chloride (Normal Saline Flush) 10 ml 1X PRN PRN IV AP catheter pack; Start 07/22/19 at 07:30; Stop 07/22/19 at 21:29; Status DC Sodium Chloride (Normal Saline Flush) 10 ml 1X PRN PRN IV TRAVELING ENGINEER catheter pack; Start 07/22/19 at 07:30; Stop 07/23/19 at 07:29; Status DC Sodium Chloride 1,000 ml @ 400 mls/hr Q2H30M PRN IV PATENCY; Start 07/22/19 at 07:30; Stop 07/22/19 at 19:29; Status DC Info (PHARMACY MONITORING -- do not chart) 1 each PRN DAILY PRN MC SEE COMMENTS; Start 07/22/19 at 07:30; Stop 07/22/19 at 13:02; Status DC Info (PHARMACY MONITORING -- do not chart) 1 each PRN DAILY PRN MC SEE COMMENTS; Start 07/22/19 at 07:30; Stop 07/24/19 at 12:45; Status DC Sodium Chloride 90 meq/Potassium Chloride 15 meq/ Potassium Phosphate 10 mmol/ Magnesium Sulfate 8 meq/Calcium Gluconate 15 meq/ Multivitamins 10 ml/Chromium/ Copper/Manganese/ Seleni/Zn 0.5 ml/ Insulin Human Regular 25 unit/ Total Parenteral Nutrition/Amino Acids/Dextrose/ Fat Emulsion Intravenous 1,400 ml @ 58.333 mls/ hr TPN CONT IV Last administered on 07/22/19at 22:19; Start 07/22/19 at 22:00; Stop 07/23/19 at 21:59; Status DC Heparin Sodium (Porcine) (Heparin Sodium) 5,000 unit Q12HR SQ Last administered on 07/26/19at 09:47; Start 07/22/19 at 21:00 Ondansetron HCl (Zofran) 4 mg PRN Q6HRS PRN IV NAUSEA/VOMITING; Start 07/25/19 at 07:00; Stop 07/26/19 at 06:59; Status DC Fentanyl Citrate (Fentanyl 2ml Vial) 25 mcg PRN Q5MIN PRN IV MILD PAIN 1-3; Start 07/25/19 at 07:00; Stop 07/26/19 at 06:59; Status DC Fentanyl Citrate (Fentanyl 2ml Vial) 50 mcg PRN Q5MIN PRN IV MODERATE TO SEVERE PAIN; Start 07/25/19 at 07:00; Stop 07/26/19 at 06:59; Status DC Ringer's Solution 1,000 ml @ 30 mls/hr Q24H IV ; Start 07/25/19 at 07:00; Stop 07/25/19 at 18:59; Status DC Lidocaine HCl (Xylocaine-Mpf 1% 2ml Vial) 2 ml PRN 1X PRN ID PRIOR TO IV START; Start 07/25/19 at 07:00; Stop 07/26/19 at 06:59; Status DC Prochlorperazine Edisylate (Compazine) 5 mg PACU PRN PRN IV NAUSEA, MRX1; Start 07/25/19 at 07:00; Stop 07/26/19 at 06:59; Status DC Sodium Chloride 1,000 ml @ 1,000 mls/hr Q1H PRN IV hypotension; Start 07/23/19 at 09:10; Stop 07/23/19 at 15:09; Status DC Albumin Human 200 ml @ 200 mls/hr 1X PRN PRN IV Hypotension Last administered on 07/23/19at 10:10; Start 07/23/19 at 09:15; Stop 07/23/19 at 15:14; Status DC Sodium Chloride 1,000 ml @ 400 mls/hr Q2H30M PRN IV PATENCY; Start 07/23/19 at 09:10; Stop 07/23/19 at 21:09; Status DC Info (PHARMACY MONITORING -- do not chart) 1 each PRN DAILY PRN MC SEE COMMENTS; Start 07/23/19 at 09:15; Stop 07/24/19 at 12:45; Status DC Info (PHARMACY MONITORING -- do not chart) 1 each PRN DAILY PRN MC SEE COMMENTS; Start 07/23/19 at 09:15; Stop 07/24/19 at 12:45; Status DC Sodium Chloride 90 meq/Potassium Chloride 15 meq/ Potassium Phosphate 10 mmol/ Magnesium Sulfate 8 meq/Calcium Gluconate 15 meq/ Multivitamins 10 ml/Chromium/ Copper/Manganese/ Seleni/Zn 0.5 ml/ Insulin Human Regular 25 unit/ Total Parenteral Nutrition/Amino Acids/Dextrose/ Fat Emulsion Intravenous 1,400 ml @ 58.333 mls/ hr TPN CONT IV Last administered on 07/23/19at 22:10; Start 07/23/19 at 22:00; Stop 07/24/19 at 21:59; Status DC Magnesium Sulfate 50 ml @ 25 mls/hr PRN DAILY PRN IV for Mag < 1.7 on am labs; Start 07/24/19 at 09:15 Sodium Chloride 90 meq/Potassium Chloride 15 meq/ Potassium Phosphate 10 mmol/ Magnesium Sulfate 8 meq/Calcium Gluconate 15 meq/ Multivitamins 10 ml/Chromium/ Copper/Manganese/ Seleni/Zn 0.5 ml/ Insulin Human Regular 25 unit/ Total Parenteral Nutrition/Amino Acids/Dextrose/ Fat Emulsion Intravenous 1,400 ml @ 58.333 mls/ hr TPN CONT IV Last administered on 07/24/19at 21:20; Start 07/24/19 at 22:00; Stop 07/25/19 at 21:59; Status DC Sodium Chloride 1,000 ml @ 1,000 mls/hr Q1H PRN IV hypotension; Start 07/24/19 at 12:23; Stop 07/24/19 at 18:22; Status DC Albumin Human 200 ml @ 200 mls/hr 1X ONCE IV Last administered on 07/24/19at 13:34; Start 07/24/19 at 12:30; Stop 07/24/19 at 13:29; Status DC Diphenhydramine HCl (Benadryl) 25 mg 1X PRN PRN IV ITCHING; Start 07/24/19 at 12:30; Stop 07/25/19 at 12:29; Status DC Diphenhydramine HCl (Benadryl) 25 mg 1X PRN PRN IV ITCHING; Start 07/24/19 at 12:30; Stop 07/25/19 at 12:29; Status DC Info (PHARMACY MONITORING -- do not chart) 1 each PRN DAILY PRN MC SEE COMMENTS; Start 07/24/19 at 12:30; Status Cancel Bupivacaine HCl/ Epinephrine Bitart (Sensorcain-Epi 0.5%-1:[id number] Mpf) 30 ml STK-MED ONCE .ROUTE Last administered on 07/25/19at 11:44; Start 07/25/19 at 11:00; Stop 07/25/19 at 11:01; Status DC Cellulose (Surgicel Fibrillar 1x2) 1 each STK-MED ONCE .ROUTE ; Start 07/25/19 at 11:00; Stop 07/25/19 at 11:01; Status DC Sodium Chloride 90 meq/Potassium Chloride 15 meq/ Potassium Phosphate 10 mmol/ Magnesium Sulfate 12 meq/Calcium Gluconate 15 meq/ Multivitamins 10 ml/Chromium/ Copper/Manganese/ Seleni/Zn 0.5 ml/ Insulin Human Regular 25 unit/ Total Parenteral Nutrition/Amino Acids/Dextrose/ Fat Emulsion Intravenous 1,400 ml @ 58.333 mls/ hr TPN CONT IV Last administered on 07/25/19at 22:24; Start 07/25/19 at 22:00; Stop 07/26/19 at 21:59 Propofol 20 ml @ As Directed STK-MED ONCE IV ; Start 07/25/19 at 11:07; Stop 07/25/19 at 11:07; Status DC Cellulose (Surgicel Hemostat 4x8) 1 each STK-MED ONCE .ROUTE Last administered on 07/25/19at 11:44; Start 07/25/19 at 11:55; Stop 07/25/19 at 11:56; Status DC Sevoflurane (Ultane) 60 ml STK-MED ONCE IH ; Start 07/25/19 at 12:46; Stop 07/25/19 at 12:46; Status DC Sodium Chloride 1,000 ml @ 1,000 mls/hr Q1H PRN IV hypotension; Start 07/25/19 at 13:51; Stop 07/25/19 at 19:50; Status DC Albumin Human 200 ml @ 200 mls/hr 1X PRN PRN IV Hypotension Last administered on 07/25/19at 14:51; Start 07/25/19 at 14:00; Stop 07/25/19 at 19:59; Status DC Diphenhydramine HCl (Benadryl) 25 mg 1X PRN PRN IV ITCHING; Start 07/25/19 at 14:00; Stop 07/26/19 at 13:59; Status DC Diphenhydramine HCl (Benadryl) 25 mg 1X PRN PRN IV ITCHING; Start 07/25/19 at 14:00; Stop 07/26/19 at 13:59; Status DC Sodium Chloride 1,000 ml @ 400 mls/hr Q2H30M PRN IV PATENCY; Start 07/25/19 at 13:51; Stop 07/26/19 at 01:50; Status DC Info (PHARMACY MONITORING -- do not chart) 1 each PRN DAILY PRN MC SEE COMMENTS; Start 07/25/19 at 14:00 Heparin Sodium (Porcine) (Hep Lock Adult) 500 unit STK-MED ONCE IVP ; Start 07/26/19 at 09:29; Stop 07/26/19 at 09:30; Status DC Sodium Chloride 1,000 ml @ 1,000 mls/hr Q1H PRN IV hypotension; Start 07/26/19 at 10:43; Stop 07/26/19 at 16:42 Sodium Chloride 1,000 ml @ 400 mls/hr Q2H30M PRN IV PATENCY; Start 07/26/19 at 10:43; Stop 07/26/19 at 22:42 Info (PHARMACY MONITORING -- do not chart) 1 each PRN DAILY PRN MC SEE COMMENTS; Start 07/26/19 at 10:45; Status UNV Info (PHARMACY MONITORING -- do not chart) 1 each PRN DAILY PRN MC SEE COMMENTS; Start 07/26/19 at 10:45; Status UNV Sodium Chloride 90 meq/Potassium Chloride 15 meq/ Magnesium Sulfate 12 meq/Calcium Gluconate 15 meq/ Multivitamins 10 ml/Chromium/ Copper/Manganese/ Seleni/Zn 0.5 ml/ Insulin Human Regular 25 unit/ Total Parenteral Nutrition/Amino Acids/Dextrose/ Fat Emulsion Intravenous 1,400 ml @ 58.333 mls/ hr TPN CONT IV ; Start 07/26/19 at 22:00; Stop 07/27/19 at 21:59 Active Scripts Active Reported Bisoprolol Fumarate 5 Mg Tablet 10 Mg PO DAILY Vitals/I & O Vital Sign - Last 24 Hours 07/25/19 07/25/19 07/25/19 07/25/19 18:11 18:45 19:00 19:10 Temp 97.3 97.3 Pulse 81 85 Resp 18 18 B/P (MAP) 188/82 (117) 120/73 (89) Pulse Ox 100 100 99 O2 Delivery Mechanical Ventilator Ventilator Ventilator Ventilator 07/25/19 07/25/19 07/25/19 07/25/19 20:00 20:00 20:51 21:00 Temp 97.7 97.7 Pulse 82 82 Resp 18 18 B/P (MAP) 123/77 (92) 117/73 (88) Pulse Ox 99 100 99 O2 Delivery Mechanical Ventilator Ventilator Ventilator Ventilator 07/25/19 07/25/19 07/26/19 07/26/19 22:00 23:00 00:00 00:00 Temp 97.4 97.4 Pulse 80 80 80 Resp 18 18 18 B/P (MAP) 97/61 (73) 109/67 (81) 106/65 (79) Pulse Ox 99 99 99 O2 Delivery Ventilator Ventilator Ventilator Mechanical Ventilator 07/26/19 07/26/19 07/26/19 07/26/19 00:20 01:00 02:00 03:00 Pulse 82 82 82 Resp 18 18 18 B/P (MAP) 103/57 (72) 105/61 (76) 104/65 (78) Pulse Ox 99 99 99 99 O2 Delivery Ventilator Ventilator Ventilator Ventilator 07/26/19 07/26/19 07/26/19 07/26/19 03:30 04:00 04:00 05:00 Temp 97.4 97.4 Pulse 84 84 Resp 18 18 B/P (MAP) 106/65 (79) 104/62 (76) Pulse Ox 99 99 99 O2 Delivery Ventilator Ventilator Mechanical Ventilator Ventilator 07/26/19 07/26/19 07/26/19 07/26/19 06:00 07:00 07:49 08:00 Pulse 82 86 86 Resp 18 18 18 B/P (MAP) 104/64 (77) 112/68 (83) 117/71 (86) Pulse Ox 99 98 99 98 O2 Delivery Ventilator Ventilator Ventilator Ventilator 07/26/19 07/26/19 07/26/19 07/26/19 08:00 09:00 10:00 11:49 Temp 97.0 97.0 Pulse 84 86 Resp 18 18 B/P (MAP) 99/65 (76) 107/61 (76) Pulse Ox 97 97 98 O2 Delivery Mechanical Ventilator Ventilator Ventilator Ventilator 07/26/19 07/26/19 07/26/19 12:00 13:28 13:58 Resp 19 Pulse Ox 98 98 O2 Delivery Mechanical Ventilator Ventilator Ventilator O2 Flow Rate 6.0 Intake and Output 07/25/19 07/25/19 07/26/19 15:00 23:00 07:00 Intake Total 250 ml 714.5 ml 814 ml Output Total 67 ml 170 ml 325 ml Balance 183 ml 544.5 ml 489 ml Hemodynamically unstable?: No Is patient in severe pain?: No Is NPO status required?: Yes NIELS MCGILL MD Jul 26, 2019 16:13
[2019-07-26] MEDS ORDERED: DEXTROSE 70% IV SCH ×10 (22:00)
[2019-07-26] MEDS ORDERED: [UNRECOGNIZED DRUG - OTHER] IV SCH ×10 (22:00)
[2019-07-26] MEDS ORDERED: TOTAL PARENTERAL NUTRITION IV SCH ×10 (22:00)
[2019-07-26] MEDS ORDERED: AMINO ACID IV SCH ×10 (22:00)
[2019-07-27] VITALS (27 sets, daily range): BP systolic 83–204; BP diastolic 48–110
[2019-07-27] MEDS: MIDAZOLAM HCL 100 MG in IV NORMAL SALINE 100ML 100 ML IV PRN ×2 (00:04→15:35)
[2019-07-27] MEDS: DEXMEDETOMIDINE 400 MCG in IV NORMAL SALINE 100ML 96 ML IV PRN ×6 (00:56→21:50)
[2019-07-27] MEDS: INSULIN LISPRO 300 UNITS/3 ML VIAL. SQ SCH ×3 (06:26→17:48)
[2019-07-27 06:40] LABS: ALBUMIN 2.3 g/dL (3.4-5.0); CALCIUM 8.7 mg/dL (8.5-10.1); GFR 26.5; MAGNESIUM 1.9 mg/dL (1.8-2.4); PHOSPHORUS 4.8 mg/dL (2.6-4.7); POTASSIUM 4.9 mmol/L (3.5-5.1)
[2019-07-27] MEDS ORDERED: IV NORMAL SALINE 1000ML BAG 1,000 ML IV PRN (07:50)
[2019-07-27] MEDS ORDERED: diphenhydrAMINE 50 MG/ML VIAL IV PRN ×2 (08:00)
[2019-07-27] MEDS ORDERED: ALBUMIN HUMAN 25% 200 ML IV ONE (08:00)
[2019-07-27] MEDS ORDERED: DIALYSIS PATIENT. MC PRN (08:00)
[2019-07-27] MEDS: NOREPINEPHRINE VIAL 8 MG in IV DEXTROSE 5% 250 ML IV PRN ×2 (08:25→13:45)
[2019-07-27] MEDS: PANTOPRAZOLE IV PUSH 40 MG VIAL. IVP SCH (08:30)
[2019-07-27 08:44] LABS: BASE EXCESS ABG -6 mmol/L (-3-3); HCO3 ABG 19 mmol/L (21-28); PCO2 ABG 36 mmHg (35-46); PO2 ABG 242 mmHg (75-108); SAT O2 ABG 99 % (92-99)
[2019-07-27] MEDS ORDERED: ALBUMIN HUMAN 25% 50 ML IV ONE (08:53)
[2019-07-27 09:01] LABS: FIO2 ABG 40
[2019-07-27] MEDS: ALBUMIN HUMAN 25% 200 ML IV PRN (09:09)
--- NOTE | 2019-07-27 09:34 | PDOC ---
SUBJECTIVE ROS bilious output from mouth despite NGT and febrile OBJECTIVE Vital Signs Vital Signs Date Time Temp Pulse Resp B/P (MAP) Pulse Ox O2 Delivery O2 Flow Rate FiO2 07/27/19 08:00 99 Ventilator 07/27/19 08:00 100.6 106 18 116/62 (80) 100.6 07/26/19 13:28 6.0 I & 0 Intake and Output 07/27/19 07:00 Intake Total 2496.57 ml Output Total 575 ml Balance 1921.57 ml IV Total 2496.57 ml Output Urine Total 525 ml Gastric Drainage Total 50 ml PHYSICAL EXAM Physical Exam GENERAL: On MV HEENT om moist NECK: Trach + LUNGS: Diminished aeration bases HEART: S1, S2, regular ABDOMEN: Distended, hypoactive BS, Rectal tube in place : Lind EXTREMITIES: Generalized edema, some mottling DERMATOLOGIC: No generalized rash. CENTRAL NERVOUS SYSTEM: Sedated RIJ Temp HDC DIAGNOSIS/ASSESSMENT Assessment & Plan ARF-- ATN, Off CRRT Seen on HD, treatment plan discussed and reviewed with Boy TTS SCHEDULE ,No Renal recovery yet , Monitor Anemia- per primary Currently on HIRAM Anasarca due to 3rd spacing Hyperkalemia- resolved AC Pancreatitis, early developing necrosis No intervention per GS Cholelithiasis Acute hypoxic resp failure ,bilateral pleural effusion On MV hypocalcemia - stable HTN- Hypotensive , pressors as indicated COVID-19 neg, 07/13 COMMENT/RELEVANT DATA Meds Current Medications Medications (Trade) Dose Ordered Sig/Yvon Start Time Stop Time Status Last Admin Dose Admin Acetaminophen (Tylenol Supp) 650 mg PRN Q6HRS PRN 07/12/19 10:30 07/12/19 10:37 650 MG Acetaminophen (Tylenol) 650 mg PRN Q6HRS PRN 07/09/19 03:36 07/14/19 07:35 650 MG Albumin Human 200 ml @ 50 mls/hr PRN 1X PRN 07/27/19 09:00 07/27/19 09:09 50 MLS/HR Albuterol Sulfate (Ventolin Neb Soln) 2.5 mg 1X ONCE 07/05/19 22:30 07/05/19 22:31 DC 07/06/19 00:56 2.5 MG Alteplase, Recombinant (Cathflo For Central Catheter Clearance) 1 mg 1X ONCE 07/19/19 22:00 07/19/19 22:01 DC 07/19/19 22:05 1 MG Artificial Tears (Artificial Tears) 1 drop PRN Q1HR PRN 07/11/19 08:15 Atenolol (Tenormin) 100 mg DAILY 07/05/19 09:00 07/04/19 20:08 DC Atropine Sulfate (ATROPINE 0.5mg SYRINGE) 0.5 mg PRN Q5MIN PRN 07/21/19 08:15 Benzocaine (Hurricaine One) 1 spray 1X ONCE 07/08/19 14:30 07/08/19 14:31 DC 07/08/19 16:38 1 SPRAY Bupivacaine HCl/ Epinephrine Bitart (Sensorcain-Epi 0.5%-1:[id number] Mpf) 30 ml STK-MED ONCE 07/25/19 11:00 07/25/19 11:01 DC 07/25/19 11:44 1 ML Calcium Carbonate/ Glycine (Tums) 500 mg PRN AFTMEALHC PRN 07/06/19 17:45 Calcium Chloride 1000 mg/Sodium Chloride 110 ml @ 220 mls/hr 1X ONCE 07/05/19 22:30 07/05/19 22:59 DC 07/05/19 22:11 220 MLS/HR Calcium Chloride 3000 mg/Sodium Chloride 1,030 ml @ 50 mls/hr [id number] 07/07/19 08:00 07/09/19 15:23 DC 07/09/19 02:17 50 MLS/HR Calcium Gluconate (Calcium Gluconate) 2,000 mg 1X ONCE 07/07/19 02:15 07/07/19 02:16 DC 07/07/19 02:19 2,000 MG Calcium Gluconate 1000 mg/Sodium Chloride 110 ml @ 220 mls/hr 1X ONCE 07/06/19 03:30 07/06/19 03:59 DC 07/06/19 03:21 220 MLS/HR Calcium Gluconate 2000 mg/Sodium Chloride 120 ml @ 220 mls/hr 1X ONCE 07/06/19 07:30 07/06/19 08:02 DC 07/06/19 09:05 220 MLS/HR Cefepime HCl (Maxipime) 2 gm Q12HR 07/13/19 09:00 07/26/19 20:56 2 GM Cellulose (Surgicel Fibrillar 1x2) 1 each STK-MED ONCE 07/25/19 11:00 07/25/19 11:01 DC Cellulose (Surgicel Hemostat 4x8) 1 each STK-MED ONCE 07/25/19 11:55 07/25/19 11:56 DC 07/25/19 11:44 1 EACH Daptomycin 500 mg/ Sodium Chloride 50 ml @ 100 mls/hr Q48H 07/13/19 08:30 07/25/19 08:35 100 MLS/HR Dexmedetomidine HCl 400 mcg/ Sodium Chloride 100 ml @ 0 mls/hr CONT PRN 07/21/19 08:15 07/27/19 08:25 27.6 MLS/HR Dextrose (Dextrose 50%-Water Syringe) 12.5 gm PRN Q15MIN PRN 07/04/19 09:30 Digoxin (Lanoxin) 125 mcg 1X ONCE 07/07/19 18:00 07/07/19 18:01 DC 07/07/19 17:10 125 MCG Diphenhydramine HCl (Benadryl) 25 mg 1X PRN PRN 07/27/19 08:00 07/28/19 07:59 Etomidate (Amidate) 8 mg 1X ONCE 07/11/19 08:30 07/11/19 08:31 DC 07/11/19 08:33 8 MG Fentanyl Citrate (Fentanyl 2ml Vial) 50 mcg PRN Q5MIN PRN 07/25/19 07:00 07/26/19 06:59 DC Furosemide (Lasix) 20 mg 1X ONCE 07/21/19 08:15 07/21/19 08:16 DC 07/21/19 08:19 20 MG Heparin Sodium (Porcine) (Hep Lock Adult) 500 unit STK-MED ONCE 07/26/19 09:29 07/26/19 09:30 DC Heparin Sodium (Porcine) (Heparin Sodium) 5,000 unit Q12HR 07/22/19 21:00 07/26/19 20:56 5,000 UNIT Hydromorphone HCl (Dilaudid) 1 mg PRN Q3HRS PRN 07/05/19 12:00 07/19/19 00:25 DC 07/11/19 05:13 1 MG Info (CONTRAST GIVEN -- Rx MONITORING) 1 each PRN DAILY PRN 07/18/19 11:45 4/20 11:44 DC Info (Icu Electrolyte Protocol) 1 ea CONT PRN PRN 07/17/19 13:15 Info (PHARMACY MONITORING -- do not chart) 1 each PRN DAILY PRN 07/27/19 08:00 Info (Tpn Per Pharmacy) 1 each PRN DAILY PRN 07/06/19 12:30 UNV Insulin Human Lispro (HumaLOG) 0-9 UNITS Q6HRS 07/04/19 09:30 07/27/19 06:26 4 UNITS Insulin Human Regular (HumuLIN R VIAL) 5 unit 1X ONCE 07/05/19 22:30 07/05/19 22:31 DC 07/05/19 22:14 5 UNIT Iohexol (Omnipaque 240 Mg/ml) 30 ml 1X ONCE 07/18/19 11:30 07/18/19 11:33 DC 07/18/19 11:30 30 ML Iohexol (Omnipaque 300 Mg/ml) 60 ml 1X ONCE 07/05/19 17:00 07/05/19 17:01 DC 07/05/19 17:20 60 ML Iohexol (Omnipaque 350 Mg/ml) 90 ml 1X ONCE 07/04/19 03:30 07/04/19 03:31 DC 07/04/19 03:25 90 ML Ketorolac Tromethamine (Toradol 30mg Vial) 30 mg 1X ONCE 07/04/19 03:00 07/04/19 03:01 DC 07/04/19 02:54 30 MG Lidocaine HCl (Buffered Lidocaine 1%) 6 ml 1X ONCE 07/21/19 09:00 07/21/19 09:06 DC 07/21/19 09:05 6 ML Lidocaine HCl (Glydo (Lidocaine) Jelly) 1 ramu 1X ONCE 07/08/19 14:30 07/08/19 14:31 DC 07/08/19 16:38 1 RAMU Lidocaine HCl (Xylocaine-Mpf 1% 2ml Vial) 2 ml PRN 1X PRN 07/25/19 07:00 07/26/19 06:59 DC Linezolid/Dextrose 300 ml @ 300 mls/hr Q12HR 07/08/19 20:00 07/15/19 07:50 DC 07/14/19 21:04 300 MLS/HR Lorazepam (Ativan Inj) 1 mg PRN Q4HRS PRN 07/07/19 09:00 07/11/19 00:34 1 MG Magnesium Sulfate 50 ml @ 25 mls/hr PRN DAILY PRN 07/24/19 09:15 Meropenem 1 gm/ Sodium Chloride 100 ml @ 200 mls/hr Q8HRS 07/05/19 20:00 07/06/19 08:48 DC 07/06/19 05:45 200 MLS/HR Meropenem 500 mg/ Sodium Chloride 50 ml @ 100 mls/hr Q6HRS 07/12/19 09:00 07/13/19 07:29 DC 07/13/19 06:00 100 MLS/HR Metoprolol Tartrate (Lopressor Vial) 5 mg Q6HRS 07/05/19 10:15 07/16/19 08:48 DC 07/14/19 00:12 5 MG Metronidazole 100 ml @ 100 mls/hr Q6HRS 07/11/19 08:30 07/27/19 06:26 100 MLS/HR Micafungin Sodium 100 mg/Dextrose 100 ml @ 100 mls/hr Q24H 07/11/19 09:00 07/26/19 10:00 100 MLS/HR Midazolam HCl (Versed) 5 mg 1X ONCE 07/11/19 08:30 07/11/19 08:31 DC Midazolam HCl 100 mg/Sodium Chloride 100 ml @ 7 mls/hr CONT PRN 07/16/19 16:00 07/27/19 00:04 7 MLS/HR Midazolam HCl 50 mg/Sodium Chloride 50 ml @ 0 mls/hr CONT PRN 07/11/19 08:15 07/16/19 15:59 DC 07/14/19 22:39 7 MLS/HR Morphine Sulfate (Morphine Sulfate) 2 mg PRN Q2HR PRN 07/04/19 05:00 07/05/19 14:15 DC 07/05/19 12:26 2 MG Multi-Ingred Cream/Lotion/Oil/ Oint (Artificial Tears Eye Ointment) 1 ramu PRN Q1HR PRN 07/13/19 17:30 07/22/19 11:05 1 RAMU Norepinephrine Bitartrate 8 mg/ Dextrose 258 ml @ 17.299 mls/ hr CONT PRN 07/05/19 15:30 07/27/19 08:25 13.839 MLS/HR Ondansetron HCl (Zofran) 4 mg PRN Q6HRS PRN 07/25/19 07:00 07/26/19 06:59 DC Pantoprazole Sodium (PROTONIX VIAL for IV PUSH) 40 mg DAILYAC 07/04/19 11:30 07/27/19 08:30 40 MG Piperacillin Sod/ Tazobactam Sod 4.5 gm/Sodium Chloride 100 ml @ 200 mls/hr 1X ONCE 07/04/19 06:00 07/04/19 06:29 DC 07/04/19 05:44 200 MLS/HR Potassium Chloride 15 meq/ Bicarbonate Dialysis Soln w/ out KCl 5,007.5 ml @ 1,000 mls/ hr Q5H1M 07/17/19 20:00 07/21/19 13:08 DC 07/20/19 18:14 1,000 MLS/HR Potassium Chloride 20 meq/ Bicarbonate Dialysis Soln w/ out KCl 5,010 ml @ 1,000 mls/hr Q5H1M 07/13/19 16:00 07/17/19 19:59 DC 07/17/19 14:54 1,000 MLS/HR Potassium Chloride/Water 100 ml @ 100 mls/hr Q1H 07/12/19 11:00 07/12/19 12:59 DC 07/12/19 12:12 100 MLS/HR Potassium Phosphate 20 mmol/ Sodium Chloride 106.6667 ml @ 51.667 m... 1X ONCE 07/13/19 13:00 07/13/19 15:03 DC 07/13/19 12:51 51.667 MLS/HR Prochlorperazine Edisylate (Compazine) 5 mg PACU PRN PRN 07/25/19 07:00 07/26/19 06:59 DC Propofol 20 ml @ As Directed STK-MED ONCE 07/25/19 11:07 07/25/19 11:07 DC Ringer's Solution 1,000 ml @ 30 mls/hr Q24H 07/25/19 07:00 07/25/19 18:59 DC Sevoflurane (Ultane) 60 ml STK-MED ONCE 07/25/19 12:46 07/25/19 12:46 DC Sodium Bicarbonate 50 meq/Sodium Chloride 1,050 ml @ 75 mls/hr Q14H 07/06/19 07:30 07/11/19 10:28 DC 07/10/19 21:10 75 MLS/HR Sodium Chloride 1,000 ml @ 1,000 mls/hr Q1H PRN 07/27/19 07:50 07/27/19 13:49 Sodium Chloride (Normal Saline Flush) 10 ml 1X PRN PRN 07/22/19 07:30 07/23/19 07:29 DC Sodium Chloride 90 meq/Calcium Gluconate 10 meq/ Multivitamins 10 ml/Chromium/ Copper/Manganese/ Seleni/Zn 0.5 ml/ Total Parenteral Nutrition/Amino Acids/Dextrose/ Fat Emulsion Intravenous 1,512 ml @ 63 mls/hr TPN CONT 07/06/19 22:00 07/07/19 21:59 DC 07/06/19 22:06 63 MLS/HR Sodium Chloride 90 meq/Calcium Gluconate 10 meq/ Multivitamins 10 ml/Chromium/ Copper/Manganese/ Seleni/Zn 1 ml/ Total Parenteral Nutrition/Amino Acids/Dextrose/ Fat Emulsion Intravenous 55.005 ml @ 2.292 mls/hr TPN CONT 07/06/19 22:00 07/06/19 12:33 DC Sodium Chloride 90 meq/Magnesium Sulfate 10 meq/ Calcium Gluconate 20 meq/ Multivitamins 10 ml/Chromium/ Copper/Manganese/ Seleni/Zn 0.5 ml/ Total Parenteral Nutrition/Amino Acids/Dextrose/ Fat Emulsion Intravenous 1,512 ml @ 63 mls/hr TPN CONT 07/07/19 22:00 07/08/19 21:59 DC 07/07/19 22:25 63 MLS/HR Sodium Chloride 90 meq/Potassium Chloride 15 meq/ Magnesium Sulfate 12 meq/Calcium Gluconate 15 meq/ Multivitamins 10 ml/Chromium/ Copper/Manganese/ Seleni/Zn 0.5 ml/ Insulin Human Regular 25 unit/ Total Parenteral Nutrition/Amino Acids/Dextrose/ Fat Emulsion Intravenous 1,400 ml @ 58.333 mls/ hr TPN CONT 07/26/19 22:00 07/27/19 21:59 07/26/19 22:13 58.333 MLS/HR Sodium Chloride 90 meq/Potassium Chloride 15 meq/ Potassium Phosphate 10 mmol/ Magnesium Sulfate 8 meq/Calcium Gluconate 15 meq/ Multivitamins 10 ml/Chromium/ Copper/Manganese/ Seleni/Zn 0.5 ml/ Insulin Human Regular 25 unit/ Total Parenteral Nutrition/Amino Acids/Dextrose/ Fat Emulsion Intravenous 1,400 ml @ 58.333 mls/ hr TPN CONT 07/24/19 22:00 07/25/19 21:59 DC 07/24/19 21:20 58.333 MLS/HR Sodium Chloride 90 meq/Potassium Chloride 15 meq/ Potassium Phosphate 10 mmol/ Magnesium Sulfate 10 meq/Calcium Gluconate 20 meq/ Multivitamins 10 ml/Chromium/ Copper/Manganese/ Seleni/Zn 0.5 ml/ Total Parenteral Nutrition/Amino Acids/Dextrose/ Fat Emulsion Intravenous 1,400 ml @ 58.333 mls/ hr TPN CONT 07/11/19 22:00 07/12/19 21:59 DC 07/11/19 21:42 58.333 MLS/HR Sodium Chloride 90 meq/Potassium Chloride 15 meq/ Potassium Phosphate 10 mmol/ Magnesium Sulfate 12 meq/Calcium Gluconate 15 meq/ Multivitamins 10 ml/Chromium/ Copper/Manganese/ Seleni/Zn 0.5 ml/ Insulin Human Regular 25 unit/ Total Parenteral Nutrition/Amino Acids/Dextrose/ Fat Emulsion Intravenous 1,400 ml @ 58.333 mls/ hr TPN CONT 07/25/19 22:00 07/26/19 21:59 DC 07/25/19 22:24 58.333 MLS/HR Sodium Chloride 90 meq/Potassium Chloride 15 meq/ Potassium Phosphate 15 mmol/ Magnesium Sulfate 10 meq/Calcium Gluconate 15 meq/ Multivitamins 10 ml/Chromium/ Copper/Manganese/ Seleni/Zn 0.5 ml/ Total Parenteral Nutrition/Amino Acids/Dextrose/ Fat Emulsion Intravenous 1,400 ml @ 58.333 mls/ hr TPN CONT 07/12/19 22:00 07/13/19 21:59 DC 07/12/19 22:17 58.333 MLS/HR Sodium Chloride 90 meq/Potassium Chloride 15 meq/ Potassium Phosphate 15 mmol/ Magnesium Sulfate 10 meq/Calcium Gluconate 20 meq/ Multivitamins 10 ml/Chromium/ Copper/Manganese/ Seleni/Zn 0.5 ml/ Total Parenteral Nutrition/Amino Acids/Dextrose/ Fat Emulsion Intravenous 1,200 ml @ 50 mls/hr TPN CONT 07/10/19 22:00 07/10/19 14:17 DC Sodium Chloride 90 meq/Potassium Chloride 15 meq/ Potassium Phosphate 18 mmol/ Magnesium Sulfate 8 meq/Calcium Gluconate 15 meq/ Multivitamins 10 ml/Chromium/ Copper/Manganese/ Seleni/Zn 0.5 ml/ Insulin Human Regular 10 unit/ Total Parenteral Nutrition/Amino Acids/Dextrose/ Fat Emulsion Intravenous 1,400 ml @ 58.333 mls/ hr TPN CONT 07/15/19 22:00 07/16/19 21:59 DC 07/15/19 21:43 58.333 MLS/HR Sodium Chloride 90 meq/Potassium Chloride 15 meq/ Potassium Phosphate 18 mmol/ Magnesium Sulfate 8 meq/Calcium Gluconate 15 meq/ Multivitamins 10 ml/Chromium/ Copper/Manganese/ Seleni/Zn 0.5 ml/ Insulin Human Regular 15 unit/ Total Parenteral Nutrition/Amino Acids/Dextrose/ Fat Emulsion Intravenous 1,400 ml @ 58.333 mls/ hr TPN CONT 07/18/19 22:00 07/19/19 21:59 DC 07/18/19 21:47 58.333 MLS/HR Sodium Chloride 90 meq/Potassium Chloride 15 meq/ Potassium Phosphate 18 mmol/ Magnesium Sulfate 8 meq/Calcium Gluconate 15 meq/ Multivitamins 10 ml/Chromium/ Copper/Manganese/ Seleni/Zn 0.5 ml/ Insulin Human Regular 20 unit/ Total Parenteral Nutrition/Amino Acids/Dextrose/ Fat Emulsion Intravenous 1,400 ml @ 58.333 mls/ hr TPN CONT 07/21/19 22:00 07/22/19 21:59 DC 07/21/19 22:45 58.333 MLS/HR Sodium Chloride 90 meq/Potassium Chloride 15 meq/ Potassium Phosphate 18 mmol/ Magnesium Sulfate 8 meq/Calcium Gluconate 15 meq/ Multivitamins 10 ml/Chromium/ Copper/Manganese/ Seleni/Zn 0.5 ml/ Total Parenteral Nutrition/Amino Acids/Dextrose/ Fat Emulsion Intravenous 1,400 ml @ 58.333 mls/ hr TPN CONT 07/14/19 22:00 07/15/19 21:59 DC 07/14/19 22:00 58.333 MLS/HR Succinylcholine Chloride (Anectine) 120 mg 1X ONCE 07/11/19 08:30 07/11/19 08:31 DC 07/11/19 08:34 120 MG Lab Laboratory Tests Test 07/26/19 18:03 07/26/19 23:40 4/20 06:10 07/27/19 06:17 Glucose (Fingerstick) 134 mg/dL (70-99) 167 mg/dL (70-99) 182 mg/dL (70-99) Sodium Level 135 mmol/L (136-145) Potassium Level 4.9 mmol/L (3.5-5.1) Chloride Level 102 mmol/L (98-107) Carbon Dioxide Level 24 mmol/L (21-32) Anion Gap 9 (6-14) Blood Urea Nitrogen 61 mg/dL (7-20) Creatinine 2.0 mg/dL (0.6-1.0) Estimated GFR (Cockcroft-Gault) 26.5 Glucose Level 187 mg/dL (70-99) Calcium Level 8.7 mg/dL (8.5-10.1) Phosphorus Level 4.8 mg/dL (2.6-4.7) Magnesium Level 1.9 mg/dL (1.8-2.4) Albumin 2.3 g/dL (3.4-5.0) Test 07/27/19 08:25 O2 Saturation 99 % (92-99) Arterial Blood pH 7.34 (7.35-7.45) Arterial Blood pCO2 at Patient Temp 36 mmHg (35-46) Arterial Blood pO2 at Patient Temp 242 mmHg (75-108) Arterial Blood HCO3 19 mmol/L (21-28) Arterial Blood Base Excess -6 mmol/L (-3-3) FiO2 40 Results All relevant outside records, renal labs, imaging studies, telemetry/EKG's were reviewed. VERENA KENT MD Jul 27, 2019 09:34
--- NOTE | 2019-07-27 09:57 | PDOC ---
Infectious Disease Note Subjective: Subjective Sedated and intubated, febrile again today undergoing dialysis TPN Rectal tube Vital Signs: Vital Signs Vital Signs Date Time Temp Pulse Resp B/P (MAP) Pulse Ox O2 Delivery O2 Flow Rate FiO2 07/27/19 08:00 99 Ventilator 07/27/19 08:00 100.6 106 18 116/62 (80) 100.6 07/26/19 13:28 6.0 Physical Exam: PHYSICAL EXAM GENERAL: Orally intubated/sedated - generalized anasarca HEENT: Pupils equal, ETT, dobhoff + NECK: Supple LUNGS: Diminished aeration bases HEART: S1, S2, regular ABDOMEN: Distended, hypoactive BS, Rectal tube in place : Lind EXTREMITIES: Generalized edema, no cyanosis - some mottling, Rooke boots & SCDs bilaterally DERMATOLOGIC: Warm and dry. No generalized rash. CENTRAL NERVOUS SYSTEM: Sedated RIJ Temp HDC, RUE-PICC Lt IJ removed 07/25 Chestwall line present Medications: Inpatient Meds: Current Medications Medications (Trade) Dose Ordered Sig/Yvon Start Time Stop Time Status Last Admin Dose Admin Acetaminophen (Tylenol Supp) 650 mg PRN Q6HRS PRN 07/12/19 10:30 07/12/19 10:37 650 MG Acetaminophen (Tylenol) 650 mg PRN Q6HRS PRN 07/09/19 03:36 07/14/19 07:35 650 MG Albumin Human 200 ml @ 50 mls/hr PRN 1X PRN 07/27/19 09:00 07/27/19 09:09 50 MLS/HR Albuterol Sulfate (Ventolin Neb Soln) 2.5 mg 1X ONCE 07/05/19 22:30 07/05/19 22:31 DC 07/06/19 00:56 2.5 MG Alteplase, Recombinant (Cathflo For Central Catheter Clearance) 1 mg 1X ONCE 07/19/19 22:00 07/19/19 22:01 DC 07/19/19 22:05 1 MG Artificial Tears (Artificial Tears) 1 drop PRN Q1HR PRN 07/11/19 08:15 Atenolol (Tenormin) 100 mg DAILY 07/05/19 09:00 07/04/19 20:08 DC Atropine Sulfate (ATROPINE 0.5mg SYRINGE) 0.5 mg PRN Q5MIN PRN 07/21/19 08:15 Benzocaine (Hurricaine One) 1 spray 1X ONCE 07/08/19 14:30 07/08/19 14:31 DC 07/08/19 16:38 1 SPRAY Bupivacaine HCl/ Epinephrine Bitart (Sensorcain-Epi 0.5%-1:227742 Mpf) 30 ml STK-MED ONCE 07/25/19 11:00 07/25/19 11:01 DC 07/25/19 11:44 1 ML Calcium Carbonate/ Glycine (Tums) 500 mg PRN AFTMEALHC PRN 07/06/19 17:45 Calcium Chloride 1000 mg/Sodium Chloride 110 ml @ 220 mls/hr 1X ONCE 07/05/19 22:30 07/05/19 22:59 DC 07/05/19 22:11 220 MLS/HR Calcium Chloride 3000 mg/Sodium Chloride 1,030 ml @ 50 mls/hr [id number] 07/07/19 08:00 07/09/19 15:23 DC 07/09/19 02:17 50 MLS/HR Calcium Gluconate (Calcium Gluconate) 2,000 mg 1X ONCE 07/07/19 02:15 07/07/19 02:16 DC 07/07/19 02:19 2,000 MG Calcium Gluconate 1000 mg/Sodium Chloride 110 ml @ 220 mls/hr 1X ONCE 07/06/19 03:30 07/06/19 03:59 DC 07/06/19 03:21 220 MLS/HR Calcium Gluconate 2000 mg/Sodium Chloride 120 ml @ 220 mls/hr 1X ONCE 07/06/19 07:30 07/06/19 08:02 DC 07/06/19 09:05 220 MLS/HR Cefepime HCl (Maxipime) 2 gm Q12HR 07/13/19 09:00 07/26/19 20:56 2 GM Cellulose (Surgicel Fibrillar 1x2) 1 each STK-MED ONCE 07/25/19 11:00 07/25/19 11:01 DC Cellulose (Surgicel Hemostat 4x8) 1 each STK-MED ONCE 07/25/19 11:55 07/25/19 11:56 DC 07/25/19 11:44 1 EACH Daptomycin 500 mg/ Sodium Chloride 50 ml @ 100 mls/hr Q48H 07/13/19 08:30 07/25/19 08:35 100 MLS/HR Dexmedetomidine HCl 400 mcg/ Sodium Chloride 100 ml @ 0 mls/hr CONT PRN 07/21/19 08:15 07/27/19 08:25 27.6 MLS/HR Dextrose (Dextrose 50%-Water Syringe) 12.5 gm PRN Q15MIN PRN 07/04/19 09:30 Digoxin (Lanoxin) 125 mcg 1X ONCE 07/07/19 18:00 07/07/19 18:01 DC 07/07/19 17:10 125 MCG Diphenhydramine HCl (Benadryl) 25 mg 1X PRN PRN 07/27/19 08:00 07/28/19 07:59 Etomidate (Amidate) 8 mg 1X ONCE 07/11/19 08:30 07/11/19 08:31 DC 07/11/19 08:33 8 MG Fentanyl Citrate (Fentanyl 2ml Vial) 50 mcg PRN Q5MIN PRN 07/25/19 07:00 07/26/19 06:59 DC Furosemide (Lasix) 20 mg 1X ONCE 07/21/19 08:15 07/21/19 08:16 DC 07/21/19 08:19 20 MG Heparin Sodium (Porcine) (Hep Lock Adult) 500 unit STK-MED ONCE 07/26/19 09:29 07/26/19 09:30 DC Heparin Sodium (Porcine) (Heparin Sodium) 5,000 unit Q12HR 07/22/19 21:00 07/26/19 20:56 5,000 UNIT Hydromorphone HCl (Dilaudid) 1 mg PRN Q3HRS PRN 07/05/19 12:00 07/19/19 00:25 DC 07/11/19 05:13 1 MG Info (CONTRAST GIVEN -- Rx MONITORING) 1 each PRN DAILY PRN 07/18/19 11:45 07/20/19 11:44 DC Info (Icu Electrolyte Protocol) 1 ea CONT PRN PRN 07/17/19 13:15 Info (PHARMACY MONITORING -- do not chart) 1 each PRN DAILY PRN 07/27/19 08:00 Info (Tpn Per Pharmacy) 1 each PRN DAILY PRN 07/06/19 12:30 UNV Insulin Human Lispro (HumaLOG) 0-9 UNITS Q6HRS 07/04/19 09:30 07/27/19 06:26 4 UNITS Insulin Human Regular (HumuLIN R VIAL) 5 unit 1X ONCE 07/05/19 22:30 07/05/19 22:31 DC 07/05/19 22:14 5 UNIT Iohexol (Omnipaque 240 Mg/ml) 30 ml 1X ONCE 07/18/19 11:30 07/18/19 11:33 DC 07/18/19 11:30 30 ML Iohexol (Omnipaque 300 Mg/ml) 60 ml 1X ONCE 07/05/19 17:00 07/05/19 17:01 DC 07/05/19 17:20 60 ML Iohexol (Omnipaque 350 Mg/ml) 90 ml 1X ONCE 07/04/19 03:30 07/04/19 03:31 DC 07/04/19 03:25 90 ML Ketorolac Tromethamine (Toradol 30mg Vial) 30 mg 1X ONCE 07/04/19 03:00 07/04/19 03:01 DC 07/04/19 02:54 30 MG Lidocaine HCl (Buffered Lidocaine 1%) 6 ml 1X ONCE 07/21/19 09:00 07/21/19 09:06 DC 07/21/19 09:05 6 ML Lidocaine HCl (Glydo (Lidocaine) Jelly) 1 ramu 1X ONCE 07/08/19 14:30 07/08/19 14:31 DC 07/08/19 16:38 1 RAMU Lidocaine HCl (Xylocaine-Mpf 1% 2ml Vial) 2 ml PRN 1X PRN 07/25/19 07:00 07/26/19 06:59 DC Linezolid/Dextrose 300 ml @ 300 mls/hr Q12HR 07/08/19 20:00 07/15/19 07:50 DC 07/14/19 21:04 300 MLS/HR Lorazepam (Ativan Inj) 1 mg PRN Q4HRS PRN 07/07/19 09:00 07/11/19 00:34 1 MG Magnesium Sulfate 50 ml @ 25 mls/hr PRN DAILY PRN 07/24/19 09:15 Meropenem 1 gm/ Sodium Chloride 100 ml @ 200 mls/hr Q8HRS 07/05/19 20:00 07/06/19 08:48 DC 07/06/19 05:45 200 MLS/HR Meropenem 500 mg/ Sodium Chloride 50 ml @ 100 mls/hr Q6HRS 07/12/19 09:00 07/13/19 07:29 DC 07/13/19 06:00 100 MLS/HR Metoprolol Tartrate (Lopressor Vial) 5 mg Q6HRS 07/05/19 10:15 07/16/19 08:48 DC 07/14/19 00:12 5 MG Metronidazole 100 ml @ 100 mls/hr Q6HRS 07/11/19 08:30 07/27/19 06:26 100 MLS/HR Micafungin Sodium 100 mg/Dextrose 100 ml @ 100 mls/hr Q24H 07/11/19 09:00 07/26/19 10:00 100 MLS/HR Midazolam HCl (Versed) 5 mg 1X ONCE 07/11/19 08:30 07/11/19 08:31 DC Midazolam HCl 100 mg/Sodium Chloride 100 ml @ 7 mls/hr CONT PRN 07/16/19 16:00 07/27/19 00:04 7 MLS/HR Midazolam HCl 50 mg/Sodium Chloride 50 ml @ 0 mls/hr CONT PRN 07/11/19 08:15 07/16/19 15:59 DC 07/14/19 22:39 7 MLS/HR Morphine Sulfate (Morphine Sulfate) 2 mg PRN Q2HR PRN 07/04/19 05:00 07/05/19 14:15 DC 07/05/19 12:26 2 MG Multi-Ingred Cream/Lotion/Oil/ Oint (Artificial Tears Eye Ointment) 1 ramu PRN Q1HR PRN 07/13/19 17:30 07/22/19 11:05 1 RAMU Norepinephrine Bitartrate 8 mg/ Dextrose 258 ml @ 17.299 mls/ hr CONT PRN 07/05/19 15:30 07/27/19 08:25 13.839 MLS/HR Ondansetron HCl (Zofran) 4 mg PRN Q6HRS PRN 07/25/19 07:00 07/26/19 06:59 DC Pantoprazole Sodium (PROTONIX VIAL for IV PUSH) 40 mg DAILYAC 07/04/19 11:30 07/27/19 08:30 40 MG Piperacillin Sod/ Tazobactam Sod 4.5 gm/Sodium Chloride 100 ml @ 200 mls/hr 1X ONCE 07/04/19 06:00 07/04/19 06:29 DC 07/04/19 05:44 200 MLS/HR Potassium Chloride 15 meq/ Bicarbonate Dialysis Soln w/ out KCl 5,007.5 ml @ 1,000 mls/ hr Q5H1M 07/17/19 20:00 07/21/19 13:08 DC 07/20/19 18:14 1,000 MLS/HR Potassium Chloride 20 meq/ Bicarbonate Dialysis Soln w/ out KCl 5,010 ml @ 1,000 mls/hr Q5H1M 07/13/19 16:00 07/17/19 19:59 DC 07/17/19 14:54 1,000 MLS/HR Potassium Chloride/Water 100 ml @ 100 mls/hr Q1H 07/12/19 11:00 07/12/19 12:59 DC 07/12/19 12:12 100 MLS/HR Potassium Phosphate 20 mmol/ Sodium Chloride 106.6667 ml @ 51.667 m... 1X ONCE 07/13/19 13:00 07/13/19 15:03 DC 07/13/19 12:51 51.667 MLS/HR Prochlorperazine Edisylate (Compazine) 5 mg PACU PRN PRN 07/25/19 07:00 07/26/19 06:59 DC Propofol 20 ml @ As Directed STK-MED ONCE 07/25/19 11:07 07/25/19 11:07 DC Ringer's Solution 1,000 ml @ 30 mls/hr Q24H 07/25/19 07:00 07/25/19 18:59 DC Sevoflurane (Ultane) 60 ml STK-MED ONCE 07/25/19 12:46 07/25/19 12:46 DC Sodium Bicarbonate 50 meq/Sodium Chloride 1,050 ml @ 75 mls/hr Q14H 07/06/19 07:30 07/11/19 10:28 DC 07/10/19 21:10 75 MLS/HR Sodium Chloride 1,000 ml @ 1,000 mls/hr Q1H PRN 07/27/19 07:50 07/27/19 13:49 Sodium Chloride (Normal Saline Flush) 10 ml 1X PRN PRN 07/22/19 07:30 07/23/19 07:29 DC Sodium Chloride 90 meq/Calcium Gluconate 10 meq/ Multivitamins 10 ml/Chromium/ Copper/Manganese/ Seleni/Zn 0.5 ml/ Total Parenteral Nutrition/Amino Acids/Dextrose/ Fat Emulsion Intravenous 1,512 ml @ 63 mls/hr TPN CONT 07/06/19 22:00 07/07/19 21:59 DC 07/06/19 22:06 63 MLS/HR Sodium Chloride 90 meq/Calcium Gluconate 10 meq/ Multivitamins 10 ml/Chromium/ Copper/Manganese/ Seleni/Zn 1 ml/ Total Parenteral Nutrition/Amino Acids/Dextrose/ Fat Emulsion Intravenous 55.005 ml @ 2.292 mls/hr TPN CONT 07/06/19 22:00 07/06/19 12:33 DC Sodium Chloride 90 meq/Magnesium Sulfate 10 meq/ Calcium Gluconate 20 meq/ Multivitamins 10 ml/Chromium/ Copper/Manganese/ Seleni/Zn 0.5 ml/ Total Parenteral Nutrition/Amino Acids/Dextrose/ Fat Emulsion Intravenous 1,512 ml @ 63 mls/hr TPN CONT 07/07/19 22:00 07/08/19 21:59 DC 07/07/19 22:25 63 MLS/HR Sodium Chloride 90 meq/Potassium Chloride 15 meq/ Magnesium Sulfate 12 meq/Calcium Gluconate 15 meq/ Multivitamins 10 ml/Chromium/ Copper/Manganese/ Seleni/Zn 0.5 ml/ Insulin Human Regular 25 unit/ Total Parenteral Nutrition/Amino Acids/Dextrose/ Fat Emulsion Intravenous 1,400 ml @ 58.333 mls/ hr TPN CONT 07/26/19 22:00 07/27/19 21:59 07/26/19 22:13 58.333 MLS/HR Sodium Chloride 90 meq/Potassium Chloride 15 meq/ Potassium Phosphate 10 mmol/ Magnesium Sulfate 8 meq/Calcium Gluconate 15 meq/ Multivitamins 10 ml/Chromium/ Copper/Manganese/ Seleni/Zn 0.5 ml/ Insulin Human Regular 25 unit/ Total Parenteral Nutrition/Amino Acids/Dextrose/ Fat Emulsion Intravenous 1,400 ml @ 58.333 mls/ hr TPN CONT 07/24/19 22:00 07/25/19 21:59 DC 07/24/19 21:20 58.333 MLS/HR Sodium Chloride 90 meq/Potassium Chloride 15 meq/ Potassium Phosphate 10 mmol/ Magnesium Sulfate 10 meq/Calcium Gluconate 20 meq/ Multivitamins 10 ml/Chromium/ Copper/Manganese/ Seleni/Zn 0.5 ml/ Total Parenteral Nutrition/Amino Acids/Dextrose/ Fat Emulsion Intravenous 1,400 ml @ 58.333 mls/ hr TPN CONT 07/11/19 22:00 07/12/19 21:59 DC 07/11/19 21:42 58.333 MLS/HR Sodium Chloride 90 meq/Potassium Chloride 15 meq/ Potassium Phosphate 10 mmol/ Magnesium Sulfate 12 meq/Calcium Gluconate 15 meq/ Multivitamins 10 ml/Chromium/ Copper/Manganese/ Seleni/Zn 0.5 ml/ Insulin Human Regular 25 unit/ Total Parenteral Nutrition/Amino Acids/Dextrose/ Fat Emulsion Intravenous 1,400 ml @ 58.333 mls/ hr TPN CONT 07/25/19 22:00 07/26/19 21:59 DC 07/25/19 22:24 58.333 MLS/HR Sodium Chloride 90 meq/Potassium Chloride 15 meq/ Potassium Phosphate 15 mmol/ Magnesium Sulfate 10 meq/Calcium Gluconate 15 meq/ Multivitamins 10 ml/Chromium/ Copper/Manganese/ Seleni/Zn 0.5 ml/ Total Parenteral Nutrition/Amino Acids/Dextrose/ Fat Emulsion Intravenous 1,400 ml @ 58.333 mls/ hr TPN CONT 07/12/19 22:00 07/13/19 21:59 DC 07/12/19 22:17 58.333 MLS/HR Sodium Chloride 90 meq/Potassium Chloride 15 meq/ Potassium Phosphate 15 mmol/ Magnesium Sulfate 10 meq/Calcium Gluconate 20 meq/ Multivitamins 10 ml/Chromium/ Copper/Manganese/ Seleni/Zn 0.5 ml/ Total Parenteral Nutrition/Amino Acids/Dextrose/ Fat Emulsion Intravenous 1,200 ml @ 50 mls/hr TPN CONT 07/10/19 22:00 07/10/19 14:17 DC Sodium Chloride 90 meq/Potassium Chloride 15 meq/ Potassium Phosphate 18 mmol/ Magnesium Sulfate 8 meq/Calcium Gluconate 15 meq/ Multivitamins 10 ml/Chromium/ Copper/Manganese/ Seleni/Zn 0.5 ml/ Insulin Human Regular 10 unit/ Total Parenteral Nutrition/Amino Acids/Dextrose/ Fat Emulsion Intravenous 1,400 ml @ 58.333 mls/ hr TPN CONT 07/15/19 22:00 07/16/19 21:59 DC 07/15/19 21:43 58.333 MLS/HR Sodium Chloride 90 meq/Potassium Chloride 15 meq/ Potassium Phosphate 18 mmol/ Magnesium Sulfate 8 meq/Calcium Gluconate 15 meq/ Multivitamins 10 ml/Chromium/ Copper/Manganese/ Seleni/Zn 0.5 ml/ Insulin Human Regular 15 unit/ Total Parenteral Nutrition/Amino Acids/Dextrose/ Fat Emulsion Intravenous 1,400 ml @ 58.333 mls/ hr TPN CONT 07/18/19 22:00 07/19/19 21:59 DC 07/18/19 21:47 58.333 MLS/HR Sodium Chloride 90 meq/Potassium Chloride 15 meq/ Potassium Phosphate 18 mmol/ Magnesium Sulfate 8 meq/Calcium Gluconate 15 meq/ Multivitamins 10 ml/Chromium/ Copper/Manganese/ Seleni/Zn 0.5 ml/ Insulin Human Regular 20 unit/ Total Parenteral Nutrition/Amino Acids/Dextrose/ Fat Emulsion Intravenous 1,400 ml @ 58.333 mls/ hr TPN CONT 07/21/19 22:00 07/22/19 21:59 DC 07/21/19 22:45 58.333 MLS/HR Sodium Chloride 90 meq/Potassium Chloride 15 meq/ Potassium Phosphate 18 mmol/ Magnesium Sulfate 8 meq/Calcium Gluconate 15 meq/ Multivitamins 10 ml/Chromium/ Copper/Manganese/ Seleni/Zn 0.5 ml/ Total Parenteral Nutrition/Amino Acids/Dextrose/ Fat Emulsion Intravenous 1,400 ml @ 58.333 mls/ hr TPN CONT 07/14/19 22:00 07/15/19 21:59 DC 07/14/19 22:00 58.333 MLS/HR Succinylcholine Chloride (Anectine) 120 mg 1X ONCE 07/11/19 08:30 07/11/19 08:31 DC 07/11/19 08:34 120 MG Labs: Lab Laboratory Tests Test 07/26/19 18:03 07/26/19 23:40 07/27/19 06:10 07/27/19 06:17 Glucose (Fingerstick) 134 mg/dL (70-99) 167 mg/dL (70-99) 182 mg/dL (70-99) Sodium Level 135 mmol/L (136-145) Potassium Level 4.9 mmol/L (3.5-5.1) Chloride Level 102 mmol/L (98-107) Carbon Dioxide Level 24 mmol/L (21-32) Anion Gap 9 (6-14) Blood Urea Nitrogen 61 mg/dL (7-20) Creatinine 2.0 mg/dL (0.6-1.0) Estimated GFR (Cockcroft-Gault) 26.5 Glucose Level 187 mg/dL (70-99) Calcium Level 8.7 mg/dL (8.5-10.1) Phosphorus Level 4.8 mg/dL (2.6-4.7) Magnesium Level 1.9 mg/dL (1.8-2.4) Albumin 2.3 g/dL (3.4-5.0) Test 07/27/19 08:25 O2 Saturation 99 % (92-99) Arterial Blood pH 7.34 (7.35-7.45) Arterial Blood pCO2 at Patient Temp 36 mmHg (35-46) Arterial Blood pO2 at Patient Temp 242 mmHg (75-108) Arterial Blood HCO3 19 mmol/L (21-28) Arterial Blood Base Excess -6 mmol/L (-3-3) FiO2 40 Objective: Assessment: Acute pancreatitis with early necrosis Cholelithiasis Leucocytosis improving JUANA,Hyperkalemia, Metabolic acidosis on HD Acute hypoxic resp failure ,bilateral pleural effusion hypocalcemia Prediabetes HTN Plan: Plan of Care DC Cefepime and flagyl start merrem cont Daptomycin (07/12), f/u cults Maintain aspiration precautions COVID-19 neg, 07/13 C diff negative 07/10 Lt IJ DC'd D/w nursing Critically ill YUNIOR JONES MD Jul 27, 2019 09:57
--- NOTE | 2019-07-27 09:58 | PDOC ---
SURGICAL PROGRESS NOTE Subjective Pt intubated and sedated, currently on dialysis Vital Signs Vital Signs Date Time Temp Pulse Resp B/P (MAP) Pulse Ox O2 Delivery O2 Flow Rate FiO2 07/27/19 08:00 99 Ventilator 07/27/19 08:00 100.6 106 18 116/62 (80) 100.6 07/26/19 13:28 6.0 I&O Intake and Output 07/27/19 07:00 Intake Total 2496.57 ml Output Total 575 ml Balance 1921.57 ml IV Total 2496.57 ml Output Urine Total 525 ml Gastric Drainage Total 50 ml General: No acute distress Abdomen: Soft, No tenderness Labs Laboratory Tests Test 07/25/19 11:21 07/25/19 19:07 07/26/19 00:27 07/26/19 06:45 Glucose (Fingerstick) 169 mg/dL (70-99) 182 mg/dL (70-99) 170 mg/dL (70-99) White Blood Count 11.0 x10^3/uL (4.0-11.0) Red Blood Count 2.50 x10^6/uL (3.50-5.40) Hemoglobin 8.0 g/dL (12.0-15.5) Hematocrit 24.9 % (36.0-47.0) Mean Corpuscular Volume 99 fL (79-100) Mean Corpuscular Hemoglobin 32 pg (25-35) Mean Corpuscular Hemoglobin Concent 32 g/dL (31-37) Red Cell Distribution Width 18.9 % (11.5-14.5) Platelet Count 270 x10^3/uL (140-400) Sodium Level 139 mmol/L (136-145) Potassium Level 4.6 mmol/L (3.5-5.1) Chloride Level 104 mmol/L (98-107) Carbon Dioxide Level 25 mmol/L (21-32) Anion Gap 10 (6-14) Blood Urea Nitrogen 73 mg/dL (7-20) Creatinine 2.3 mg/dL (0.6-1.0) Estimated GFR (Cockcroft-Gault) 22.5 Glucose Level 155 mg/dL (70-99) Calcium Level 8.9 mg/dL (8.5-10.1) Phosphorus Level 5.8 mg/dL (2.6-4.7) Albumin 2.9 g/dL (3.4-5.0) Test 07/26/19 06:49 07/26/19 08:00 07/26/19 18:03 07/26/19 23:40 Glucose (Fingerstick) 145 mg/dL (70-99) 134 mg/dL (70-99) 167 mg/dL (70-99) O2 Saturation 96 % (92-99) Arterial Blood pH 7.30 (7.35-7.45) Arterial Blood pCO2 at Patient Temp 45 mmHg (35-46) Arterial Blood pO2 at Patient Temp 95 mmHg (75-108) Arterial Blood HCO3 22 mmol/L (21-28) Arterial Blood Base Excess -5 mmol/L (-3-3) FiO2 40 Test 07/27/19 06:10 07/27/19 06:17 07/27/19 08:25 Sodium Level 135 mmol/L (136-145) Potassium Level 4.9 mmol/L (3.5-5.1) Chloride Level 102 mmol/L (98-107) Carbon Dioxide Level 24 mmol/L (21-32) Anion Gap 9 (6-14) Blood Urea Nitrogen 61 mg/dL (7-20) Creatinine 2.0 mg/dL (0.6-1.0) Estimated GFR (Cockcroft-Gault) 26.5 Glucose Level 187 mg/dL (70-99) Calcium Level 8.7 mg/dL (8.5-10.1) Phosphorus Level 4.8 mg/dL (2.6-4.7) Magnesium Level 1.9 mg/dL (1.8-2.4) Albumin 2.3 g/dL (3.4-5.0) Glucose (Fingerstick) 182 mg/dL (70-99) O2 Saturation 99 % (92-99) Arterial Blood pH 7.34 (7.35-7.45) Arterial Blood pCO2 at Patient Temp 36 mmHg (35-46) Arterial Blood pO2 at Patient Temp 242 mmHg (75-108) Arterial Blood HCO3 19 mmol/L (21-28) Arterial Blood Base Excess -6 mmol/L (-3-3) FiO2 40 Laboratory Tests Test 07/26/19 18:03 07/26/19 23:40 07/27/19 06:10 07/27/19 06:17 Glucose (Fingerstick) 134 mg/dL (70-99) 167 mg/dL (70-99) 182 mg/dL (70-99) Sodium Level 135 mmol/L (136-145) Potassium Level 4.9 mmol/L (3.5-5.1) Chloride Level 102 mmol/L (98-107) Carbon Dioxide Level 24 mmol/L (21-32) Anion Gap 9 (6-14) Blood Urea Nitrogen 61 mg/dL (7-20) Creatinine 2.0 mg/dL (0.6-1.0) Estimated GFR (Cockcroft-Gault) 26.5 Glucose Level 187 mg/dL (70-99) Calcium Level 8.7 mg/dL (8.5-10.1) Phosphorus Level 4.8 mg/dL (2.6-4.7) Magnesium Level 1.9 mg/dL (1.8-2.4) Albumin 2.3 g/dL (3.4-5.0) Test 07/27/19 08:25 O2 Saturation 99 % (92-99) Arterial Blood pH 7.34 (7.35-7.45) Arterial Blood pCO2 at Patient Temp 36 mmHg (35-46) Arterial Blood pO2 at Patient Temp 242 mmHg (75-108) Arterial Blood HCO3 19 mmol/L (21-28) Arterial Blood Base Excess -6 mmol/L (-3-3) FiO2 40 Problem List Problems Medical Problems: (1) Acute pancreatitis Status: Acute (2) Cholelithiasis Status: Acute Assessment/Plan severe pancreatitis appears relatively stable having fevers, defer to ID DAVON SIMMS MD Jul 27, 2019 09:58
--- NOTE | 2019-07-27 10:03 | PDOC ---
Objective: Objective: Nurse notes bilious output from mouth despite NGT, notes fever. Vital Signs: Vital Signs Date Time Temp Pulse Resp B/P (MAP) Pulse Ox O2 Delivery O2 Flow Rate FiO2 07/27/19 08:00 99 Ventilator 07/27/19 08:00 100.6 106 18 116/62 (80) 100.6 07/26/19 13:28 6.0 Labs: Laboratory Tests Test 07/26/19 18:03 07/26/19 23:40 07/27/19 06:10 07/27/19 06:17 Glucose (Fingerstick) 134 mg/dL 167 mg/dL 182 mg/dL Sodium Level 135 mmol/L Potassium Level 4.9 mmol/L Chloride Level 102 mmol/L Carbon Dioxide Level 24 mmol/L Anion Gap 9 Blood Urea Nitrogen 61 mg/dL Creatinine 2.0 mg/dL Estimated GFR (Cockcroft-Gault) 26.5 Glucose Level 187 mg/dL Calcium Level 8.7 mg/dL Phosphorus Level 4.8 mg/dL Magnesium Level 1.9 mg/dL Albumin 2.3 g/dL Test 07/27/19 08:25 O2 Saturation 99 % Arterial Blood pH 7.34 Arterial Blood pCO2 at Patient Temp 36 mmHg Arterial Blood pO2 at Patient Temp 242 mmHg Arterial Blood HCO3 19 mmol/L Arterial Blood Base Excess -6 mmol/L FiO2 40 URINE CULTURE RES 1 Final No growth BLOOD CULTURE Preliminary NO GROWTH AFTER 3 DAYS Imaging: KUB 07/25 Impression: 1. NG tube extends into the distal stomach 2. Non obstructive bowel gas pattern. PE: GEN: dialyzing LUNGS: trach/vent, clear HEART: mildly tachycardic ABD: distended, rectal tube dark (same) NEURO/PSYCH: sedated A/P: Gallstone pancreatitis, MOSF -- Continue same. Hemodynamically unstable?: No Is patient in severe pain?: No Is NPO status required?: Yes CYNDEE FALCON Jul 27, 2019 10:03
[2019-07-27] MEDS: HEPARIN for SUB-Q USE 5,000 UNIT/ML VIAL. SQ SCH ×2 (13:22→20:59)
[2019-07-27] MEDS: TPN PER PHARMACY MC PRN (13:23)
--- NOTE | 2019-07-27 13:25 | NUR ---
Pharmacy TPN Dosing Note S: SCOTT AVILA is a 48 year old F Currently receiving Central Continuous TPN started 07/06/19 B:Pertinent PMH: Necrotizing pancreatitis Height: 5 feet, 8 inches Weight: 109.0 kg Current diet: NPO LABS: Sodium: 135 Potassium: 4.9 Chloride: 102 Calcium: 8.7 Corrected Calcium: 8.06 Magnesium: 1.9 CO2: 24 SCr: 2 Glucose: 187, 182 Albumin: 4.8 AST: 47 ALT: 20 TPN FORMULA: TPN TYPE: Central Continuous AMINO ACIDS: 125 gm DEXTROSE: 195 gm LIPIDS: 40 gm SODIUM CHLORIDE: 90 mEq MAGNESIUM: 12 mEq CALCIUM: 15 mEq INSULIN: 25 units MULTIPLE VITAMIN: 10 ml TRACE ELEMENTS: 0.5 ml TPN PLAN: -Serum K+ trending up despite HD yesterday, remove KCl from TPN. -Pt continues to have anasarca and 3rd spacing, however TPN cannot be further concentrated due to macronutrient components. -Renal panel tomorrow per nephrology. R: Continue TPN @ current rate and above formula. Will monitor electrolytes, glucose, and tolerance to TPN. SHARON CHRISTIANSON [facility], 07/27/19 [id number]
[2019-07-27] MEDS: MEROPENEM 500 MG in IV NORMAL SALINE 50ML 50 ML IV SCH ×2 (13:30→21:51)
--- NOTE | 2019-07-27 13:45 | PDOC ---
PROGRESS NOTES Assessment Assessment Respiratory failure. Seizure. Metabolic encephalopathy. Fever 102.7 degree, recurrent fever 100.6 degree on 07/27/19. Metabolic acidosis. Diffuse pulmonary infiltrate. Pleural effusion. Pancreatitis Gallstone. Leukocytosis. Lymphopenia. Electrolytes imbalances. Hyperglycemia. DM. HTN. HLD. Anemia. Abnormal CXR. Obesity. Covid-19 suspected. RECOMMENDATIONS/PLAN: Continue life support in PACU at the present time. Keppra if has further seizures. Treat medical diseases. Suggested repeat Covid-19 lab test. OT/PT. EEG last week: No seizure activity. OBJECTIVE: Fever 100.6 degree. 07/27/19: No seizures reported over night. Past Medical History Cardiovascular: HTN, Hyperlipidemia Endocrine: Diabetes Family History Unobtainable. Social HistoryU not obtainable Allergies Coded Allergies: Codeine (Verified Allergy, Intermediate, rash, 07/04/19) ROS Unobtainable in unresponsive state. NEUROLOGICAL EXAMINATION: Decreased responsiveness. Not oriented to time, place and person. PERRL. EOMI not active. CN: no acute focal findings. No focalized findings per reports. Patient went to dialysis. Objective Objective Vital Signs Date Time Temp Pulse Resp B/P (MAP) Pulse Ox O2 Delivery O2 Flow Rate FiO2 07/27/19 13:29 18 99 Ventilator 07/27/19 08:00 100.6 106 116/62 (80) 100.6 07/26/19 13:28 6.0 Intake and Output 07/27/19 07:00 Intake Total 2496.57 ml Output Total 575 ml Balance 1921.57 ml IV Total 2496.57 ml Output Urine Total 525 ml Gastric Drainage Total 50 ml Vitals Signs Vitals VS - Last 72 Hours, by Label Date Time Temp Pulse Resp B/P (MAP) Pulse Ox O2 Delivery O2 Flow Rate FiO2 07/27/19 13:29 18 99 Ventilator 07/27/19 11:54 100 Ventilator 07/27/19 08:00 99 Ventilator 07/27/19 08:00 Mechanical Ventilator 07/27/19 08:00 100.6 106 18 116/62 (80) 98 Ventilator 100.6 07/27/19 07:00 104 18 112/62 (79) 99 Ventilator 07/27/19 06:00 104 19 135/72 (93) 98 Ventilator 07/27/19 05:25 98 Ventilator 07/27/19 05:00 104 19 119/67 (84) 99 Ventilator 07/27/19 04:55 99 07/27/19 04:06 99 Ventilator 07/27/19 04:00 Mechanical Ventilator 07/27/19 04:00 100.2 104 18 113/64 (80) 99 Ventilator 100.2 07/27/19 03:00 104 18 116/72 (87) 99 Ventilator 07/27/19 02:00 104 18 115/61 (79) 99 Ventilator 07/27/19 01:36 100 Ventilator 07/27/19 01:00 107 18 129/70 (89) 97 Ventilator 07/27/19 00:00 99.1 103 18 114/63 (80) 99 Ventilator 99.1 07/27/19 00:00 Mechanical Ventilator 07/26/19 23:49 100 Ventilator 07/26/19 23:00 100 18 109/62 (78) 98 Ventilator 07/26/19 22:05 98 Ventilator 07/26/19 22:00 105 18 137/76 (96) 99 Ventilator 07/26/19 21:12 99 07/26/19 21:08 98 Ventilator 07/26/19 21:00 103 17 126/79 (95) 99 Ventilator 07/26/19 20:42 99 Ventilator 07/26/19 20:00 Mechanical Ventilator 07/26/19 20:00 98.3 98 18 140/92 (108) 99 Ventilator 98.3 07/26/19 19:00 98 18 142/90 (107) 99 Ventilator 07/26/19 18:00 100 18 137/85 (102) 96 Ventilator 07/26/19 17:30 106 18 156/89 (111) 98 Ventilator 07/26/19 17:00 105 18 147/80 (102) 97 Ventilator 07/26/19 16:40 Mechanical Ventilator 07/26/19 16:11 98 Ventilator 07/26/19 13:58 19 98 Ventilator 07/26/19 13:28 98 Ventilator 6.0 07/26/19 12:00 Mechanical Ventilator 07/26/19 12:00 98.0 86 18 110/54 (72) 97 Ventilator 98.0 07/26/19 11:49 98 Ventilator 07/26/19 11:00 86 18 105/60 (75) 97 Ventilator 07/26/19 10:00 86 18 107/61 (76) 97 Ventilator 07/26/19 09:00 97.0 84 18 99/65 (76) 97 Ventilator 97.0 07/26/19 08:00 Mechanical Ventilator 07/26/19 08:00 86 18 117/71 (86) 98 Ventilator 07/26/19 07:49 99 Ventilator 07/26/19 07:00 86 18 112/68 (83) 98 Ventilator Laboratory Laboratory Laboratory Tests Test 07/26/19 18:03 07/26/19 23:40 07/27/19 06:10 07/27/19 06:17 Glucose (Fingerstick) 134 mg/dL (70-99) 167 mg/dL (70-99) 182 mg/dL (70-99) Sodium Level 135 mmol/L (136-145) Potassium Level 4.9 mmol/L (3.5-5.1) Chloride Level 102 mmol/L (98-107) Carbon Dioxide Level 24 mmol/L (21-32) Anion Gap 9 (6-14) Blood Urea Nitrogen 61 mg/dL (7-20) Creatinine 2.0 mg/dL (0.6-1.0) Estimated GFR (Cockcroft-Gault) 26.5 Glucose Level 187 mg/dL (70-99) Calcium Level 8.7 mg/dL (8.5-10.1) Phosphorus Level 4.8 mg/dL (2.6-4.7) Magnesium Level 1.9 mg/dL (1.8-2.4) Albumin 2.3 g/dL (3.4-5.0) Test 07/27/19 08:25 07/27/19 13:22 O2 Saturation 99 % (92-99) Arterial Blood pH 7.34 (7.35-7.45) Arterial Blood pCO2 at Patient Temp 36 mmHg (35-46) Arterial Blood pO2 at Patient Temp 242 mmHg (75-108) Arterial Blood HCO3 19 mmol/L (21-28) Arterial Blood Base Excess -6 mmol/L (-3-3) FiO2 40 Glucose (Fingerstick) 153 mg/dL (70-99) Microbiology 07/24/19 Blood Culture - Preliminary, Resulted NO GROWTH AFTER 3 DAYS 07/23/19 Urine Culture - Final, Complete 07/23/19 Urine Culture Result 1 (ALEXANDRA) - Final, Complete Medication Medications Current Medications Albumin Human 50 ml @ 50 mls/hr 1X ONCE IV ; Start 07/27/19 at 08:53; Stop 07/27/19 at 08:56; Status DC Albumin Human 200 ml @ 50 mls/hr PRN 1X PRN IV HYPOTENSION Last administered on 07/27/19at 09:09; Start 07/27/19 at 09:00 Albumin Human 200 ml @ 200 mls/hr 1X ONCE IV ; Start 07/27/19 at 08:00; Stop 07/27/19 at 08:53; Status DC Diphenhydramine HCl (Benadryl) 25 mg 1X PRN PRN IV ITCHING; Start 07/27/19 at 08:00; Stop 07/28/19 at 07:59 Diphenhydramine HCl (Benadryl) 25 mg 1X PRN PRN IV ITCHING; Start 07/27/19 at 08:00; Stop 07/28/19 at 07:59 Info (PHARMACY MONITORING -- do not chart) 1 each PRN DAILY PRN MC SEE COMMENTS; Start 07/27/19 at 08:00 Meropenem 500 mg/ Sodium Chloride 50 ml @ 100 mls/hr Q12H IV Last administered on 07/27/19at 13:30; Start 07/27/19 at 10:00 Sodium Chloride 1,000 ml @ 1,000 mls/hr Q1H PRN IV hypotension; Start 07/27/19 at 07:50; Stop 07/27/19 at 13:49 Sodium Chloride 90 meq/Magnesium Sulfate 12 meq/ Calcium Gluconate 15 meq/ Multivitamins 10 ml/Chromium/ Copper/Manganese/ Seleni/Zn 0.5 ml/ Insulin Human Regular 25 unit/ Total Parenteral Nutrition/Amino Acids/Dextrose/ Fat Emulsion Intravenous 1,400 ml @ 58.333 mls/ hr TPN CONT IV ; Start 07/27/19 at 22:00; Stop 07/28/19 at 21:59 Sodium Chloride 90 meq/Potassium Chloride 15 meq/ Magnesium Sulfate 12 meq/Calcium Gluconate 15 meq/ Multivitamins 10 ml/Chromium/ Copper/Manganese/ Seleni/Zn 0.5 ml/ Insulin Human Regular 25 unit/ Total Parenteral Nutrition/Amino Acids/Dextrose/ Fat Emulsion Intravenous 1,400 ml @ 58.333 mls/ hr TPN CONT IV Last administered on 07/26/19at 22:13; Start 07/26/19 at 22:00; Stop 07/27/19 at 21:59 Comment Review of Relevant I have reviewed the following items kolby (where applicable) has been applied. ZANDER ZUÑIGA MD Jul 27, 2019 13:45
[2019-07-27] MEDS: DAPTOmycin (GENERIC) IVPB 500 MG in IV NORMAL SALINE 50ML 50 ML IV SCH (14:02)
--- NOTE | 2019-07-27 14:10 | NUR ---
Patient left to go to dialysis on Levophed 0.08, came back from Dialysis on 0.25 of Levophed. IV spreadsheet does not reflect this. Started titrating levo down at 1315. Will continue to monitor.
[2019-07-27] MEDS: MICAFUNGIN 100 MG in IV DEXTROSE 5% 100ML 100 ML IV SCH (14:28)
--- NOTE | 2019-07-27 15:38 | NUR ---
SS following up with discharge planning. SS discussed with RN. [facility]CF[facility] following for self pay status. Pt's daughters working to obtain court order to get access to pt's financial records and once court order is received pt's daughters will be able to assist with completing Medicaid application. Pt had trach placement on 07/25/2019. Pt is on hemodialysis 3x per week. SS will continue to follow for discharge planning.
--- NOTE | 2019-07-27 16:42 | PDOC ---
PROGRESS NOTES Chief Complaint Chief Complaint Respiratory failure requiring mechanical ventilation Severe Acute gallstone pancreatitis (not a surgical candidate at this time) with necrosis Acute kidney failure now requiring dialysis Salpingitis Gallstones (Calculus of gallbladder with acute cholecystitis without obstruction) HTN Leukocytosis Hypoxia Uterine fibroid Hypoxia with respiratory failure Intractable pain Intractable nausea Covid 19 negative. Acute on chronic anemia will have to follow up since there is suspicion for hemorrhagic fluid in pelvis Plan: continue supportive measures dialysis today awaiting for placment, she will probably will need to transition to LTAC History of Present Illness History of Present Illness 07/26/2019 No acute events reported overnight, case discussed with nursing staff patient in no acute distress no complaints during my visit, most likely patient will be moving to LTAC soon 07/25/2019 Plans for trach int he am and dialysis in the afternoon, no acute events reported overnight. 07/24/2019 No acute events reported overnight, case discussed with nursing staff patient in no acute distress during my visit 07/23/2019 No acute events reported overnight, patient receiving dialysis today, case discussed with nursing staff patient in no acute distress during my visit 07/22/2019 No new changes remains critically ill, off CRRT, still planning for trach on Thursday unless we manage to wean over the weekend 07/21/2019 Continues to remain critically ill. The patient unable to be taken off ventilatory support as of yet., Discussed with pulmonary image consultant. Planning all tracheostomy on Thursday if he is unable to be weaned off vent 07/20/2019 No acute events reported overnight, no fever or chills, remains critically stable, discussed with mother at bedside. [id number] Patient seen and examined in the ICU She is critically ill Mechanically ventilated Assist-control/25/450/30 with 8 of PEEP She is on cefepime daptomycin Flagyl and micafungin GEN for antibiotic coverage Also getting TPN and CRRT Sedated with Versed Getting IV albumin also She is tachycardic at 112 bpm Temp max 100.0 White blood count is down from 45,000 35,000 today Chart reviewed Discussed with RN [id number] Patient seen and examined in the ICU She remains very critically ill Going for a CT of the abdomen chest and pelvis Ventilated : On assist control 40% FiO2 Discussed with RN Chart reviewed [id number] Patient seen and examined in the ICU She is still on CRRT although we plan to change to hemodialysis soon Chart reviewed Discussed with RN Hemoglobin down to 6.9 (suspect CRRT related , Will let nephrology consider transfusion while on dialysis) [id number] Patient seen and examined in the ICU She is mechanically ventilated Before meals/25/450/30% Also on CRRT Very critically ill Chart reviewed Discussed with RN [id number] Patient seen and examined in the ICU She is now been transferred to the Covid 19 unit so we can rule out Covid and keep her in isolation Very critically ill Intubated and ventilated Assist control 40% Chart reviewed Discussed with RN Still on CRRT Getting a chest x-ray now Very concerned about her prognosis [id number] Patient seen and examined in the ICU She is extremely critically ill Remains mechanically ventilated with assist control/25/450/40% Also on continuous renal replacement therapy Chart reviewed Discussed with RN She has TPN hanging Also on pressors [id number] Patient seen and examined in the ICU She is still requiring CRRT On the vent with assist control but her FiO2 is down to 40% from yesterday Slightly better but still very critically ill Discussed with RN Chart reviewed [id number] Patient seen and examined in the ICU She remains extremely critically ill On IV fentanyl IV Versed IV Doxy On the vent Assist-control/25/450/70% She is critically ill Discussed with RN Chart reviewed Patient is currently on CRRT as well [id number] Patient seen and examined in the ICU She had to be intubated this morning On assist-control 25/450/100% with 10 of PEEP and only satting 87% She is extremely critically ill I'm not sure if she will survive Chart reviewed Discussed with RN Ms Diaz is a 48yo F w/ PMHx HTN, prediabetes who presents the emergency room complaints of abdominal pain. Patient described off and on 3 days. She states is constant, described as a squeezing sensation in a band-like distribution. + nausea, vomiting. She denies any fever or diarrhea. Patient denies any abdominal surgical procedures. She states is worse with movements, car ride. Pain initially was upper abdomen however now pretty much generalized. Last bowel movement was 07/03/2019. Nothing makes her pain better. Patient denies any shortness of breath. She does state the pain moves into her chest. Denies any headache or visual changes. Lipase [id number], AST 401, ALT 249, Bilirubin 1.4. CT abdomen confirms pancreatic inflammation, peripancreatic fluid and inflammatory changes around the pancreas consistent with pancreatitis. Cholelithiasis and 1.4cm uterine fibroid as well as possible left salpingitis. Admitted for further care GI, General surgery, ID, Pulm consulted. 07/04: Overnight per report no urine output. Added dilaudid for pain, PICC placed per IR. Renal US negative.Seen bedside in ICU, given 2L additional NSS and albumin infusion. Still hypotensive, started on levophed. Repeat CT abdomen with necrosis. Updated her fiancee 07/05: Sats are only 87% on nasal cannula oxygen. Dialysis catheter per nephrology 07/06: She is now on BiPAP appears more ill, now on dialysis 07/07: Seen on BiPAP. Her mother and another family member are present and seemed to be good support for her. Currently on dialysis. Appears critically ill 07/08: Overnight Tmax 101.7 , still on BiPAP FiO2 40%, still on low dose Levophed gtt, TPN initiated. On dialysis Overnight still febrile. Dialysis today. She wakes up and responds to pain. No CP. Vitals Vitals Vital Signs Date Time Temp Pulse Resp B/P (MAP) Pulse Ox O2 Delivery O2 Flow Rate FiO2 07/27/19 16:00 Mechanical Ventilator 07/27/19 15:53 97 07/27/19 15:45 96 98/56 (70) 07/27/19 15:30 18 07/27/19 13:00 100.8 100.8 07/26/19 13:28 6.0 Physical Exam Physical Exam GENERAL: Orally intubated/sedated - generalized anasarca HEENT: Pupils equal, ETT, dobhoff + NECK: Supple LUNGS: Diminished aeration bases HEART: S1, S2, regular ABDOMEN: Distended, hypoactive BS, Rectal tube in place : Lind EXTREMITIES: Generalized edema, no cyanosis - some mottling, Rooke boots & SCDs bilaterally DERMATOLOGIC: Warm and dry. No generalized rash. CENTRAL NERVOUS SYSTEM: Sedated RIJ Temp HDC, RUE-PICC Lt IJ removed 07/25 Chestwall line present General: No acute distress Heart: Other (increased rate) Lungs: Other (dimished in BLL) Abdomen: Soft, No tenderness Extremities: No edema, Other (SOME CLUBBING ) Skin: Other (mottling noted to extremities ) Labs LABS Laboratory Tests Test 07/26/19 18:03 07/26/19 23:40 07/27/19 06:10 07/27/19 06:17 Glucose (Fingerstick) 134 mg/dL (70-99) 167 mg/dL (70-99) 182 mg/dL (70-99) Sodium Level 135 mmol/L (136-145) Potassium Level 4.9 mmol/L (3.5-5.1) Chloride Level 102 mmol/L (98-107) Carbon Dioxide Level 24 mmol/L (21-32) Anion Gap 9 (6-14) Blood Urea Nitrogen 61 mg/dL (7-20) Creatinine 2.0 mg/dL (0.6-1.0) Estimated GFR (Cockcroft-Gault) 26.5 Glucose Level 187 mg/dL (70-99) Calcium Level 8.7 mg/dL (8.5-10.1) Phosphorus Level 4.8 mg/dL (2.6-4.7) Magnesium Level 1.9 mg/dL (1.8-2.4) Albumin 2.3 g/dL (3.4-5.0) Test 07/27/19 08:25 07/27/19 13:22 O2 Saturation 99 % (92-99) Arterial Blood pH 7.34 (7.35-7.45) Arterial Blood pCO2 at Patient Temp 36 mmHg (35-46) Arterial Blood pO2 at Patient Temp 242 mmHg (75-108) Arterial Blood HCO3 19 mmol/L (21-28) Arterial Blood Base Excess -6 mmol/L (-3-3) FiO2 40 Glucose (Fingerstick) 153 mg/dL (70-99) Assessment and Plan Assessmemt and Plan Problems Medical Problems: (1) Acute pancreatitis Status: Acute (2) Cholelithiasis Status: Acute Comment Review of Relevant I have reviewed the following items kolby (where applicable) has been applied. Labs Laboratory Tests Test 07/25/19 19:07 07/26/19 00:27 07/26/19 06:45 07/26/19 06:49 Glucose (Fingerstick) 182 mg/dL (70-99) 170 mg/dL (70-99) 145 mg/dL (70-99) White Blood Count 11.0 x10^3/uL (4.0-11.0) Red Blood Count 2.50 x10^6/uL (3.50-5.40) Hemoglobin 8.0 g/dL (12.0-15.5) Hematocrit 24.9 % (36.0-47.0) Mean Corpuscular Volume 99 fL (79-100) Mean Corpuscular Hemoglobin 32 pg (25-35) Mean Corpuscular Hemoglobin Concent 32 g/dL (31-37) Red Cell Distribution Width 18.9 % (11.5-14.5) Platelet Count 270 x10^3/uL (140-400) Sodium Level 139 mmol/L (136-145) Potassium Level 4.6 mmol/L (3.5-5.1) Chloride Level 104 mmol/L (98-107) Carbon Dioxide Level 25 mmol/L (21-32) Anion Gap 10 (6-14) Blood Urea Nitrogen 73 mg/dL (7-20) Creatinine 2.3 mg/dL (0.6-1.0) Estimated GFR (Cockcroft-Gault) 22.5 Glucose Level 155 mg/dL (70-99) Calcium Level 8.9 mg/dL (8.5-10.1) Phosphorus Level 5.8 mg/dL (2.6-4.7) Albumin 2.9 g/dL (3.4-5.0) Test 07/26/19 08:00 07/26/19 18:03 07/26/19 23:40 07/27/19 06:10 O2 Saturation 96 % (92-99) Arterial Blood pH 7.30 (7.35-7.45) Arterial Blood pCO2 at Patient Temp 45 mmHg (35-46) Arterial Blood pO2 at Patient Temp 95 mmHg (75-108) Arterial Blood HCO3 22 mmol/L (21-28) Arterial Blood Base Excess -5 mmol/L (-3-3) FiO2 40 Glucose (Fingerstick) 134 mg/dL (70-99) 167 mg/dL (70-99) Sodium Level 135 mmol/L (136-145) Potassium Level 4.9 mmol/L (3.5-5.1) Chloride Level 102 mmol/L (98-107) Carbon Dioxide Level 24 mmol/L (21-32) Anion Gap 9 (6-14) Blood Urea Nitrogen 61 mg/dL (7-20) Creatinine 2.0 mg/dL (0.6-1.0) Estimated GFR (Cockcroft-Gault) 26.5 Glucose Level 187 mg/dL (70-99) Calcium Level 8.7 mg/dL (8.5-10.1) Phosphorus Level 4.8 mg/dL (2.6-4.7) Magnesium Level 1.9 mg/dL (1.8-2.4) Albumin 2.3 g/dL (3.4-5.0) Test 07/27/19 06:17 07/27/19 08:25 07/27/19 13:22 Glucose (Fingerstick) 182 mg/dL (70-99) 153 mg/dL (70-99) O2 Saturation 99 % (92-99) Arterial Blood pH 7.34 (7.35-7.45) Arterial Blood pCO2 at Patient Temp 36 mmHg (35-46) Arterial Blood pO2 at Patient Temp 242 mmHg (75-108) Arterial Blood HCO3 19 mmol/L (21-28) Arterial Blood Base Excess -6 mmol/L (-3-3) FiO2 40 Laboratory Tests Test 07/26/19 18:03 07/26/19 23:40 07/27/19 06:10 07/27/19 06:17 Glucose (Fingerstick) 134 mg/dL (70-99) 167 mg/dL (70-99) 182 mg/dL (70-99) Sodium Level 135 mmol/L (136-145) Potassium Level 4.9 mmol/L (3.5-5.1) Chloride Level 102 mmol/L (98-107) Carbon Dioxide Level 24 mmol/L (21-32) Anion Gap 9 (6-14) Blood Urea Nitrogen 61 mg/dL (7-20) Creatinine 2.0 mg/dL (0.6-1.0) Estimated GFR (Cockcroft-Gault) 26.5 Glucose Level 187 mg/dL (70-99) Calcium Level 8.7 mg/dL (8.5-10.1) Phosphorus Level 4.8 mg/dL (2.6-4.7) Magnesium Level 1.9 mg/dL (1.8-2.4) Albumin 2.3 g/dL (3.4-5.0) Test 07/27/19 08:25 07/27/19 13:22 O2 Saturation 99 % (92-99) Arterial Blood pH 7.34 (7.35-7.45) Arterial Blood pCO2 at Patient Temp 36 mmHg (35-46) Arterial Blood pO2 at Patient Temp 242 mmHg (75-108) Arterial Blood HCO3 19 mmol/L (21-28) Arterial Blood Base Excess -6 mmol/L (-3-3) FiO2 40 Glucose (Fingerstick) 153 mg/dL (70-99) Microbiology 07/24/19 Blood Culture - Preliminary, Resulted NO GROWTH AFTER 3 DAYS 07/23/19 Urine Culture - Final, Complete 07/23/19 Urine Culture Result 1 (ALEXANDRA) - Final, Complete Medications Current Medications Sodium Chloride 1,000 ml @ 1,000 mls/hr Q1H IV Last administered on 07/04/19at 03:00; Start 07/04/19 at 03:00; Stop 07/04/19 at 03:59; Status DC Ondansetron HCl (Zofran) 4 mg 1X ONCE IVP Last administered on 07/04/19at 03:27; Start 07/04/19 at 03:00; Stop 07/04/19 at 03:01; Status DC Morphine Sulfate (Morphine Sulfate) 4 mg 1X ONCE IV ; Start 07/04/19 at 03:00; Stop 07/04/19 at 03:01; Status Cancel Ketorolac Tromethamine (Toradol 30mg Vial) 30 mg 1X ONCE IV Last administered on 07/04/19at 02:54; Start 07/04/19 at 03:00; Stop 07/04/19 at 03:01; Status DC Fentanyl Citrate (Fentanyl 2ml Vial) 25 mcg 1X ONCE IVP Last administered on 07/04/19at 03:23; Start 07/04/19 at 03:30; Stop 07/04/19 at 03:31; Status DC Fentanyl Citrate (Fentanyl 2ml Vial) 100 mcg STK-MED ONCE .ROUTE ; Start 07/04/19 at 03:18; Stop 07/04/19 at 03:18; Status DC Iohexol (Omnipaque 350 Mg/ml) 90 ml 1X ONCE IV Last administered on 07/04/19at 03:25; Start 07/04/19 at 03:30; Stop 07/04/19 at 03:31; Status DC Info (CONTRAST GIVEN -- Rx MONITORING) 1 each PRN DAILY PRN MC SEE COMMENTS; Start 07/04/19 at 03:30; Stop 07/06/19 at 03:29; Status DC Hydromorphone HCl (Dilaudid) 0.5 mg 1X ONCE IV Last administered on 07/04/19at 03:55; Start 07/04/19 at 04:30; Stop 07/04/19 at 04:32; Status DC Ondansetron HCl (Zofran) 4 mg PRN Q8HRS PRN IV NAUSEA/VOMITING 1ST CHOICE; Start 07/04/19 at 05:00; Stop 07/04/19 at 09:27; Status DC Morphine Sulfate (Morphine Sulfate) 2 mg PRN Q2HR PRN IV SEVERE PAIN 7-10 Last administered on 07/05/19at 12:26; Start 07/04/19 at 05:00; Stop 07/05/19 at 14:15; Status DC Sodium Chloride 1,000 ml @ 125 mls/hr Q8H IV Last administered on 07/04/19at 20:56; Start 07/04/19 at 05:00; Stop 07/05/19 at 04:59; Status DC Hydromorphone HCl (Dilaudid) 0.5 mg PRN Q3HRS PRN IV SEVERE PAIN 7-10 Last administered on 07/05/19at 10:06; Start 07/04/19 at 05:00; Stop 07/05/19 at 12:01; Status DC Piperacillin Sod/ Tazobactam Sod 4.5 gm/Sodium Chloride 100 ml @ 200 mls/hr 1X ONCE IV Last administered on 07/04/19at 05:44; Start 07/04/19 at 06:00; Stop 07/04/19 at 06:29; Status DC Ondansetron HCl (Zofran) 4 mg PRN Q4HRS PRN IV NAUSEA/VOMITING 1ST CHOICE Last administered on 07/09/19at 16:15; Start 07/04/19 at 09:30 Insulin Human Lispro (HumaLOG) 0-9 UNITS Q6HRS SQ Last administered on 07/27/19at 13:25; Start 07/04/19 at 09:30 Dextrose (Dextrose 50%-Water Syringe) 12.5 gm PRN Q15MIN PRN IV SEE COMMENTS; Start 07/04/19 at 09:30 Pantoprazole Sodium (PROTONIX VIAL for IV PUSH) 40 mg DAILYAC IVP Last administered on 07/27/19at 08:30; Start 07/04/19 at 11:30 Prochlorperazine Edisylate (Compazine) 10 mg PRN Q6HRS PRN IV NAUSEA/VOMITING, 2nd CHOICE Last administered on 07/05/19at 00:42; Start 07/04/19 at 17:45 Atenolol (Tenormin) 100 mg DAILY PO ; Start 07/05/19 at 09:00; Stop 07/04/19 at 20:08; Status DC Metoprolol Tartrate (Lopressor Vial) 2.5 mg Q6HRS IVP Last administered on 07/05/19at 05:51; Start 07/04/19 at 20:15; Stop 07/05/19 at 10:02; Status DC Metoprolol Tartrate (Lopressor Vial) 5 mg Q6HRS IVP Last administered on 07/14/19at 00:12; Start 07/05/19 at 10:15; Stop 07/16/19 at 08:48; Status DC Hydromorphone HCl (Dilaudid) 1 mg PRN Q3HRS PRN IV SEVERE PAIN 7-10 Last administered on 07/11/19at 05:13; Start 07/05/19 at 12:00; Stop 07/19/19 at 00:25; Status DC Lidocaine HCl (Buffered Lidocaine 1%) 3 ml STK-MED ONCE .ROUTE ; Start 07/05/19 at 12:55; Stop 07/05/19 at 12:56; Status DC Albumin Human 500 ml @ 125 mls/hr 1X ONCE IV Last administered on 07/05/19at 14:33; Start 07/05/19 at 14:30; Stop 07/05/19 at 18:32; Status DC Norepinephrine Bitartrate 8 mg/ Dextrose 258 ml @ 17.299 mls/ hr CONT PRN IV PER PROTOCOL Last administered on 07/27/19at 13:45; Start 07/05/19 at 15:30 Sodium Chloride 1,000 ml @ 125 mls/hr Q8H IV Last administered on 07/05/19at 21:04; Start 07/05/19 at 16:00; Stop 07/06/19 at 02:42; Status DC Albumin Human 500 ml @ 125 mls/hr PRN BID PRN IV After every 2L NSS & BP < 90mm Last administered on 07/20/19at 14:21; Start 07/05/19 at 16:00 Iohexol (Omnipaque 300 Mg/ml) 60 ml 1X ONCE IV Last administered on 07/05/19at 17:20; Start 07/05/19 at 17:00; Stop 07/05/19 at 17:01; Status DC Info (CONTRAST GIVEN -- Rx MONITORING) 1 each PRN DAILY PRN MC SEE COMMENTS; Start 07/05/19 at 17:00; Stop 07/07/19 at 16:59; Status DC Meropenem 1 gm/ Sodium Chloride 100 ml @ 200 mls/hr Q8HRS IV Last administered on 07/06/19at 05:45; Start 07/05/19 at 20:00; Stop 07/06/19 at 08:48; Status DC Furosemide (Lasix) 40 mg 1X ONCE IVP Last administered on 07/05/19at 22:12; Start 07/05/19 at 22:30; Stop 07/05/19 at 22:31; Status DC Calcium Chloride 1000 mg/Sodium Chloride 110 ml @ 220 mls/hr 1X ONCE IV Last administered on 07/05/19at 22:11; Start 07/05/19 at 22:30; Stop 07/05/19 at 22:59; Status DC Albuterol Sulfate (Ventolin Neb Soln) 2.5 mg 1X ONCE NEB Last administered on 07/06/19at 00:56; Start 07/05/19 at 22:30; Stop 07/05/19 at 22:31; Status DC Insulin Human Regular (HumuLIN R VIAL) 5 unit 1X ONCE IV Last administered on 07/05/19at 22:14; Start 07/05/19 at 22:30; Stop 07/05/19 at 22:31; Status DC Magnesium Sulfate 50 ml @ 25 mls/hr 1X ONCE IV Last administered on 07/06/19at 02:57; Start 07/06/19 at 03:00; Stop 07/06/19 at 04:59; Status DC Calcium Gluconate 1000 mg/Sodium Chloride 110 ml @ 220 mls/hr 1X ONCE IV Last administered on 07/06/19at 02:46; Start 07/06/19 at 03:00; Stop 07/06/19 at 03:29; Status DC Sodium Chloride 1,000 ml @ 200 mls/hr Q5H IV Last administered on 07/06/19at 02:46; Start 07/06/19 at 03:00; Stop 07/06/19 at 10:21; Status DC Calcium Gluconate 1000 mg/Sodium Chloride 110 ml @ 220 mls/hr 1X ONCE IV Last administered on 07/06/19at 03:21; Start 07/06/19 at 03:30; Stop 07/06/19 at 03:59; Status DC Sodium Bicarbonate 50 meq/Sodium Chloride 1,050 ml @ 75 mls/hr Q14H IV Last administered on 07/10/19at 21:10; Start 07/06/19 at 07:30; Stop 07/11/19 at 10:28; Status DC Calcium Gluconate 2000 mg/Sodium Chloride 120 ml @ 220 mls/hr 1X ONCE IV Last administered on 07/06/19at 09:05; Start 07/06/19 at 07:30; Stop 07/06/19 at 08:02; Status DC Lidocaine HCl (Xylocaine-Mpf 1% 2ml Vial) 2 ml STK-MED ONCE .ROUTE ; Start 07/06/19 at 08:47; Stop 07/06/19 at 08:47; Status DC Meropenem 500 mg/ Sodium Chloride 50 ml @ 100 mls/hr Q12HR IV Last administered on 07/11/19at 21:01; Start 07/06/19 at 18:00; Stop 07/12/19 at 07:58; Status DC Lidocaine HCl (Buffered Lidocaine 1%) 3 ml STK-MED ONCE .ROUTE ; Start 07/06/19 at 09:46; Stop 07/06/19 at 09:46; Status DC Lidocaine HCl (Buffered Lidocaine 1%) 6 ml 1X ONCE INJ Last administered on 07/06/19at 10:26; Start 07/06/19 at 10:15; Stop 07/06/19 at 10:16; Status DC Info (Tpn Per Pharmacy) 1 each PRN DAILY PRN MC SEE COMMENTS Last administered on 07/27/19at 13:23; Start 07/06/19 at 12:00 Sodium Chloride 1,000 ml @ 1,000 mls/hr Q1H PRN IV hypotension; Start 07/06/19 at 12:07; Stop 07/06/19 at 18:06; Status DC Diphenhydramine HCl (Benadryl) 25 mg 1X PRN PRN IV ITCHING; Start 07/06/19 at 1 2:15; Stop 07/07/19 at 12:14; Status DC Diphenhydramine HCl (Benadryl) 25 mg 1X PRN PRN IV ITCHING; Start 07/06/19 at 12:15; Stop 07/07/19 at 12:14; Status DC Sodium Chloride 1,000 ml @ 400 mls/hr Q2H30M PRN IV PATENCY; Start 07/06/19 at 12:07; Stop 07/07/19 at 00:06; Status DC Info (PHARMACY MONITORING -- do not chart) 1 each PRN DAILY PRN MC SEE COMMENTS; Start 07/06/19 at 12:15; Stop 07/08/19 at 08:13; Status DC Sodium Chloride 90 meq/Calcium Gluconate 10 meq/ Multivitamins 10 ml/Chromium/ Copper/Manganese/ Seleni/Zn 1 ml/ Total Parenteral Nutrition/Amino Acids/Dextrose/ Fat Emulsion Intravenous 55.005 ml @ 2.292 mls/hr TPN CONT IV ; Start 07/06/19 at 22:00; Stop 07/06/19 at 12:33; Status DC Info (Tpn Per Pharmacy) 1 each PRN DAILY PRN MC SEE COMMENTS; Start 07/06/19 at 12:30; Status UNV Sodium Chloride 90 meq/Calcium Gluconate 10 meq/ Multivitamins 10 ml/Chromium/ Copper/Manganese/ Seleni/Zn 0.5 ml/ Total Parenteral Nutrition/Amino Acids/Dextrose/ Fat Emulsion Intravenous 1,512 ml @ 63 mls/hr TPN CONT IV Last administered on 07/06/19at 22:06; Start 07/06/19 at 22:00; Stop 07/07/19 at 21:59; Status DC Calcium Carbonate/ Glycine (Tums) 500 mg PRN AFTMEALHC PRN PO INDIGESTION; Start 07/06/19 at 17:45 Calcium Gluconate (Calcium Gluconate) 2,000 mg 1X ONCE IVP Last administered on 07/07/19at 02:19; Start 07/07/19 at 02:15; Stop 07/07/19 at 02:16; Status DC Calcium Chloride 3000 mg/Sodium Chloride 1,030 ml @ 50 mls/hr [id number] IV Last administered on 07/09/19at 02:17; Start 07/07/19 at 08:00; Stop 07/09/19 at 15:23; Status DC Lorazepam (Ativan Inj) 1 mg PRN Q4HRS PRN IVP ANXIETY / AGITATION Last administered on 07/11/19at 00:34; Start 07/07/19 at 09:00 Sodium Chloride 1,000 ml @ 1,000 mls/hr Q1H PRN IV hypotension; Start 07/07/19 at 08:56; Stop 07/07/19 at 14:55; Status DC Albumin Human 200 ml @ 200 mls/hr 1X PRN PRN IV Hypotension; Start 07/07/19 at 09:00; Stop 07/07/19 at 14:59; Status DC Diphenhydramine HCl (Benadryl) 25 mg 1X PRN PRN IV ITCHING; Start 07/07/19 at 09:00; Stop 07/08/19 at 08:59; Status DC Diphenhydramine HCl (Benadryl) 25 mg 1X PRN PRN IV ITCHING; Start 07/07/19 at 09:00; Stop 07/08/19 at 08:59; Status DC Sodium Chloride 1,000 ml @ 400 mls/hr Q2H30M PRN IV PATENCY; Start 07/07/19 at 08:56; Stop 07/07/19 at 20:55; Status DC Info (PHARMACY MONITORING -- do not chart) 1 each PRN DAILY PRN MC SEE COMMENTS; Start 07/07/19 at 09:00; Status UNV Info (PHARMACY MONITORING -- do not chart) 1 each PRN DAILY PRN MC SEE COMMENTS; Start 07/07/19 at 09:00; Stop 07/08/19 at 08:13; Status DC Digoxin (Lanoxin) 500 mcg 1X ONCE IV Last administered on 07/07/19at 10:04; Start 07/07/19 at 10:00; Stop 07/07/19 at 10:01; Status DC Digoxin (Lanoxin) 125 mcg 1X ONCE IV Last administered on 07/07/19at 17:10; Start 07/07/19 at 18:00; Stop 07/07/19 at 18:01; Status DC Magnesium Sulfate 100 ml @ 25 mls/hr 1X ONCE IV Last administered on 07/07/19at 12:48; Start 07/07/19 at 13:00; Stop 07/07/19 at 16:59; Status DC Sodium Chloride 90 meq/Magnesium Sulfate 10 meq/ Calcium Gluconate 20 meq/ Mul tivitamins 10 ml/Chromium/ Copper/Manganese/ Seleni/Zn 0.5 ml/ Total Parenteral Nutrition/Amino Acids/Dextrose/ Fat Emulsion Intravenous 1,512 ml @ 63 mls/hr TPN CONT IV Last administered on 07/07/19at 22:25; Start 07/07/19 at 22:00; Stop 07/08/19 at 21:59; Status DC Sodium Chloride 1,000 ml @ 1,000 mls/hr Q1H PRN IV hypotension; Start 07/08/19 at 08:05; Stop 07/08/19 at 14:04; Status DC Albumin Human 200 ml @ 200 mls/hr 1X ONCE IV Last administered on 07/08/19at 08:57; Start 07/08/19 at 08:15; Stop 07/08/19 at 09:14; Status DC Diphenhydramine HCl (Benadryl) 25 mg 1X PRN PRN IV ITCHING; Start 07/08/19 at 08:15; Stop 07/09/19 at 08:14; Status DC Diphenhydramine HCl (Benadryl) 25 mg 1X PRN PRN IV ITCHING; Start 07/08/19 at 08:15; Stop 07/09/19 at 08:14; Status DC Sodium Chloride 1,000 ml @ 400 mls/hr Q2H30M PRN IV PATENCY; Start 07/08/19 at 08:05; Stop 07/08/19 at 20:04; Status DC Info (PHARMACY MONITORING -- do not chart) 1 each PRN DAILY PRN MC SEE COMMENTS; Start 07/08/19 at 08:15; Stop 07/12/19 at 07:57; Status DC Sodium Chloride 90 meq/Potassium Chloride 15 meq/ Potassium Phosphate 10 mmol/ Magnesium Sulfate 10 meq/Calcium Gluconate 20 meq/ Multivitamins 10 ml/Chromium/ Copper/Manganese/ Seleni/Zn 0.5 ml/ Total Parenteral Nutrition/Amino Aci ds/Dextrose/ Fat Emulsion Intravenous 1,512 ml @ 63 mls/hr TPN CONT IV Last administered on 07/08/19at 21:01; Start 07/08/19 at 22:00; Stop 07/09/19 at 21:59; Status DC Potassium Chloride/Water 100 ml @ 100 mls/hr 1X ONCE IV Last administered on 07/08/19at 14:09; Start 07/08/19 at 14:00; Stop 07/08/19 at 14:59; Status DC Benzocaine (Hurricaine One) 1 spray 1X ONCE MM Last administered on 07/08/19at 16:38; Start 07/08/19 at 14:30; Stop 07/08/19 at 14:31; Status DC Lidocaine HCl (Glydo (Lidocaine) Jelly) 1 ramu 1X ONCE MM Last administered on 07/08/19at 16:38; Start 07/08/19 at 14:30; Stop 07/08/19 at 14:31; Status DC Linezolid/Dextrose 300 ml @ 300 mls/hr Q12HR IV Last administered on 07/14/19at 21:04; Start 07/08/19 at 20:00; Stop 07/15/19 at 07:50; Status DC Acetaminophen (Tylenol) 650 mg PRN Q6HRS PRN PO MILD PAIN / TEMP; Start 07/09/19 at 03:30; Stop 07/09/19 at 03:36; Status DC Acetaminophen (Tylenol) 650 mg PRN Q6HRS PRN PEG MILD PAIN / TEMP Last administered on 07/14/19at 07:35; Start 07/09/19 at 03:36 Sodium Chloride 1,000 ml @ 1,000 mls/hr Q1H PRN IV hypotension; Start 07/09/19 at 07:50; Stop 07/09/19 at 13:49; Status DC Albumin Human 200 ml @ 200 mls/hr 1X PRN PRN IV Hypotension; Start 07/09/19 at 08:00; Stop 07/09/19 at 13:59; Status DC Sodium Chloride (Normal Saline Flush) 10 ml 1X PRN PRN IV AP catheter pack; Start 07/09/19 at 08:00; Stop 07/10/19 at 07:59; Status DC Sodium Chloride (Normal Saline Flush) 10 ml 1X PRN PRN IV 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; Start 07/09/19 at 08:00; Stop 07/10/19 at 07:59; Status DC Sodium Chloride 1,000 ml @ 400 mls/hr Q2H30M PRN IV PATENCY; Start 07/09/19 at 07:50; Stop 07/09/19 at 19:49; Status DC Info (PHARMACY MONITORING -- do not chart) 1 each PRN DAILY PRN MC SEE COMMENTS; Start 07/09/19 at 08:00; Status UNV Info (PHARMACY MONITORING -- do not chart) 1 each PRN DAILY PRN MC SEE COMMENTS; Start 07/09/19 at 08:00; Stop 07/11/19 at 08:25; Status DC Sodium Chloride 90 meq/Potassium Chloride 15 meq/ Potassium Phosphate 10 mmol/ Magnesium Sulfate 10 meq/Calcium Gluconate 20 meq/ Multivitamins 10 ml/Chromium/ Copper/Manganese/ Seleni/Zn 0.5 ml/ Total Parenteral Nutrition/Amino Acids /Dextrose/ Fat Emulsion Intravenous 1,512 ml @ 63 mls/hr TPN CONT IV Last administered on 07/09/19at 20:57; Start 07/09/19 at 22:00; Stop 07/10/19 at 21:59; Status DC Sodium Chloride 90 meq/Potassium Chloride 15 meq/ Potassium Phosphate 15 mmol/ Magnesium Sulfate 10 meq/Calcium Gluconate 20 meq/ Multivitamins 10 ml/Chromium/ Copper/Manganese/ Seleni/Zn 0.5 ml/ Total Parenteral Nutrition/Amino Acids/Dextrose/ Fat Emulsion Intravenous 1,512 ml @ 63 mls/hr TPN CONT IV ; Start 07/10/19 at 22:00; Stop 07/10/19 at 14:16; Status DC Sodium Chloride 90 meq/Potassium Chloride 15 meq/ Potassium Phosphate 15 mmol/ Magnesium Sulfate 10 meq/Calcium Gluconate 20 meq/ Multivitamins 10 ml/Chromium/ Copper/Manganese/ Seleni/Zn 0.5 ml/ Total Parenteral Nutrition/Amino Ac ids/Dextrose/ Fat Emulsion Intravenous 1,200 ml @ 50 mls/hr TPN CONT IV ; Start 07/10/19 at 22:00; Stop 07/10/19 at 14:17; Status DC Sodium Chloride 90 meq/Potassium Chloride 15 meq/ Potassium Phosphate 10 mmol/ Magnesium Sulfate 10 meq/Calcium Gluconate 20 meq/ Multivitamins 10 ml/Chromium/ Copper/Manganese/ Seleni/Zn 0.5 ml/ Total Parenteral Nutrition/Amino Acids/Dextrose/ Fat Emulsion Intravenous 1,200 ml @ 50 mls/hr TPN CONT IV Last administered on 07/10/19at 23:29; Start 07/10/19 at 22:00; Stop 07/11/19 at 21:59; Status DC Sodium Chloride 1,000 ml @ 1,000 mls/hr Q1H PRN IV hypotension; Start 07/11/19 at 07:28; Stop 07/11/19 at 13:27; Status DC Albumin Human 200 ml @ 200 mls/hr 1X ONCE IV Last administered on 07/11/19at 08:51; Start 07/11/19 at 07:30; Stop 07/11/19 at 08:29; Status DC Diphenhydramine HCl (Benadryl) 25 mg 1X PRN PRN IV ITCHING; Start 07/11/19 at 07:30; Stop 07/12/19 at 07:29; Status DC Diphenhydramine HCl (Benadryl) 25 mg 1X PRN PRN IV ITCHING; Start 07/11/19 at 07:30; Stop 07/12/19 at 07:29; Status DC Sodium Chloride 1,000 ml @ 400 mls/hr Q2H30M PRN IV PATENCY; Start 07/11/19 at 07:28; Stop 07/11/19 at 19:27; Status DC Info (PHARMACY MONITORING -- do not chart) 1 each PRN DAILY PRN MC SEE COMMENTS; Start 07/11/19 at 07:30; Stop 07/22/19 at 13:01; Status DC Metronidazole 100 ml @ 100 mls/hr Q6HRS IV Last administered on 07/27/19at 06:26; Start 07/11/19 at 08:30; Stop 07/27/19 at 09:58; Status DC Micafungin Sodium 100 mg/Dextrose 100 ml @ 100 mls/hr Q24H IV Last administer ed on 07/27/19at 14:28; Start 07/11/19 at 09:00 Propofol 0 ml @ As Directed STK-MED ONCE IV ; Start 07/11/19 at 07:53; Stop 07/11/19 at 07:53; Status DC Etomidate (Amidate) 20 mg STK-MED ONCE IV ; Start 07/11/19 at 07:53; Stop 07/11/19 at 07:54; Status DC Midazolam HCl (Versed) 5 mg STK-MED ONCE .ROUTE ; Start 07/11/19 at 07:57; Stop 07/11/19 at 07:57; Status DC Fentanyl Citrate 30 ml @ 0 mls/hr CONT PRN IV SEE PROTOCOL Last administered on 07/27/19at 13:29; Start 07/11/19 at 08:15 Artificial Tears (Artificial Tears) 1 drop PRN Q1HR PRN OU DRY EYE, 1st choice; Start 07/11/19 at 08:15 Midazolam HCl 50 mg/Sodium Chloride 50 ml @ 0 mls/hr CONT PRN IV SEE PROTOCOL Last administered on 07/14/19at 22:39; Start 07/11/19 at 08:15; Stop 07/16/19 at 15:59; Status DC Etomidate (Amidate) 8 mg 1X ONCE IV Last administered on 07/11/19at 08:33; Start 07/11/19 at 08:30; Stop 07/11/19 at 08:31; Status DC Succinylcholine Chloride (Anectine) 120 mg 1X ONCE IV Last administered on 07/11/19at 08:34; Start 07/11/19 at 08:30; Stop 07/11/19 at 08:31; Status DC Midazolam HCl (Versed) 5 mg 1X ONCE IV ; Start 07/11/19 at 08:30; Stop 07/11/19 at 08:31; Status DC Potassium Chloride 15 meq/ Bicarbonate Dialysis Soln w/ out KCl 5,007.5 ml @ 1,000 mls/ hr Q5H1M IV Last administered on 07/12/19at 11:11; Start 07/11/19 at 12:00; Stop 07/12/19 at 11:15; Status DC Potassium Chloride 15 meq/ Bicarbonate Dialysis Soln w/ out KCl 5,007.5 ml @ 1,000 mls/ hr Q5H1M IV Last administered on 07/12/19at 11:12; Start 07/11/19 at 12:00; Stop 07/12/19 at 11:17; Status DC Potassium Chloride 15 meq/ Bicarbonate Dialysis Soln w/ out KCl 5,007.5 ml @ 1,000 mls/ hr Q5H1M IV Last administered on 07/12/19at 11:11; Start 07/11/19 at 12:00; Stop 07/12/19 at 11:19; Status DC Sodium Chloride 90 meq/Potassium Chloride 15 meq/ Potassium Phosphate 10 mmol/ Magnesium Sulfate 10 meq/Calcium Gluconate 20 meq/ Multivitamins 10 ml/Chromium/ Copper/Manganese/ Seleni/Zn 0.5 ml/ Total Parenteral Nutrition/Amino Acids/Dextrose/ Fat Emulsion Intravenous 1,400 ml @ 58.333 mls/ hr TPN CONT IV Last administered on 07/11/19at 21:42; Start 07/11/19 at 22:00; Stop 07/12/19 at 21:59; Status DC Heparin Sodium (Porcine) (Heparin Sodium) 5,000 unit Q8HRS SQ Last administered on 07/16/19at 05:55; Start 07/11/19 at 15:00; Stop 07/16/19 at 13:28; Status DC Meropenem 500 mg/ Sodium Chloride 50 ml @ 100 mls/hr Q6HRS IV Last administered on 07/13/19at 06:00; Start 07/12/19 at 09:00; Stop 07/13/19 at 07:29; Status DC Potassium Phosphate 20 mmol/ Sodium Chloride 106.6667 ml @ 51.667 m... 1X ONCE IV Last administered on 07/12/19at 11:22; Start 07/12/19 at 10:15; Stop 07/12/19 at 12:18; Status DC Acetaminophen (Tylenol Supp) 650 mg PRN Q6HRS PRN OR MILD PAIN / TEMP Last administered on 07/12/19at 10:37; Start 07/12/19 at 10:30 Potassium Chloride/Water 100 ml @ 100 mls/hr Q1H IV Last administered on 07/12/19at 12:12; Start 07/12/19 at 11:00; Stop 07/12/19 at 12:59; Status DC Potassium Chloride 20 meq/ Bicarbonate Dialysis Soln w/ out KCl 5,010 ml @ 1,000 mls/hr Q5H1M IV Last administered on 07/13/19at 08:48; Start 07/12/19 at 12:00; Stop 07/13/19 at 13:03; Status DC Potassium Chloride 20 meq/ Bicarbonate Dialysis Soln w/ out KCl 5,010 ml @ 1,000 mls/hr Q5H1M IV Last administered on 07/17/19at 14:52; Start 07/12/19 at 11:30; Stop 07/17/19 at 19:59; Status DC Potassium Chloride 20 meq/ Bicarbonate Dialysis Soln w/ out KCl 5,010 ml @ 1,000 mls/hr Q5H1M IV Last administered on 07/17/19at 14:53; Start 07/12/19 at 11:30; Stop 07/17/19 at 19:59; Status DC Sodium Chloride 90 meq/Potassium Chloride 15 meq/ Potassium Phosphate 15 mmol/ Magnesium Sulfate 10 meq/Calcium Gluconate 15 meq/ Multivitamins 10 ml/Chromium/ Copper/Manganese/ Seleni/Zn 0.5 ml/ Total Parenteral Nutrition/Amino Acids/Dextrose/ Fat Emulsion Intravenous 1,400 ml @ 58.333 mls/ hr TPN CONT IV Last administered on 07/12/19at 22:17; Start 07/12/19 at 22:00; Stop 07/13/19 at 21:59; Status DC Cefepime HCl (Maxipime) 2 gm Q12HR IVP Last administered on 07/26/19at 20:56; Start 07/13/19 at 09:00; Stop 07/27/19 at 09:58; Status DC Daptomycin 500 mg/ Sodium Chloride 50 ml @ 100 mls/hr Q48H IV Last administered on 07/27/19at 14:02; Start 07/13/19 at 08:30 Lidocaine HCl (Buffered Lidocaine 1%) 3 ml 1X ONCE INJ Last administered on 07/13/19at 10:27; Start 07/13/19 at 10:30; Stop 07/13/19 at 10:31; Status DC Potassium Phosphate 20 mmol/ Sodium Chloride 106.6667 ml @ 51.667 m... 1X ONCE IV Last administered on 07/13/19at 12:51; Start 07/13/19 at 13:00; Stop 07/13/19 at 15:03; Status DC Sodium Chloride 90 meq/Potassium Chloride 15 meq/ Potassium Phosphate 18 mmol/ Magnesium Sulfate 8 meq/Calcium Gluconate 15 meq/ Multivitamins 10 ml/Chromium/ Copper/Manganese/ Seleni/Zn 0.5 ml/ Total Parenteral Nutrition/Amino Acids/Dextrose/ Fat Emulsion Intravenous 1,400 ml @ 58.333 mls/ hr TPN CONT IV Last administered on 07/13/19at 22:16; Start 07/13/19 at 22:00; Stop 07/14/19 at 21:59; Status DC Potassium Chloride 20 meq/ Bicarbonate Dialysis Soln w/ out KCl 5,010 ml @ 1,000 mls/hr Q5H1M IV Last administered on 07/17/19at 14:54; Start 07/13/19 at 16:00; Stop 07/17/19 at 19:59; Status DC Multi-Ingred Cream/Lotion/Oil/ Oint (Artificial Tears Eye Ointment) 1 ramu PRN Q1HR PRN OU DRY EYE, 2nd choice Last administered on 07/22/19at 11:05; Start 07/13/19 at 17:30 Sodium Chloride 90 meq/Potassium Chloride 15 meq/ Potassium Phosphate 18 mmol/ Magnesium Sulfate 8 meq/Calcium Gluconate 15 meq/ Multivitamins 10 ml/Chromium/ Copper/Manganese/ Seleni/Zn 0.5 ml/ Total Parenteral Nutrition/Amino Acids/Dextrose/ Fat Emulsion Intravenous 1,400 ml @ 58.333 mls/ hr TPN CONT IV Last administered on 07/14/19at 22:00; Start 07/14/19 at 22:00; Stop 07/15/19 at 21:59; Status DC Albumin Human 500 ml @ 125 mls/hr 1X ONCE IV ; Start 07/14/19 at 14:15; Stop 07/14/19 at 18:14; Status DC Sodium Chloride 90 meq/Potassium Chloride 15 meq/ Potassium Phosphate 18 mmol/ Magnesium Sulfate 8 meq/Calcium Gluconate 15 meq/ Multivitamins 10 ml/Chromium/ Copper/Manganese/ Seleni/Zn 0.5 ml/ Insulin Human Regular 10 unit/ Total Parenteral Nutrition/Amino Acids/Dextrose/ Fat Emulsion Intravenous 1,400 ml @ 58.333 mls/ hr TPN CONT IV Last administered on 07/15/19at 21:43; Start 07/15/19 at 22:00; Stop 07/16/19 at 21:59; Status DC Lidocaine HCl (Buffered Lidocaine 1%) 3 ml STK-MED ONCE .ROUTE ; Start 07/13/19 at 10:00; Stop 07/15/19 at 13:57; Status DC Midazolam HCl 100 mg/Sodium Chloride 100 ml @ 7 mls/hr CONT PRN IV SEE PROTOCOL Last administered on 07/27/19at 15:35; Start 07/16/19 at 16:00 Sodium Chloride 90 meq/Potassium Chloride 15 meq/ Potassium Phosphate 18 mmol/ Magnesium Sulfate 8 meq/Calcium Gluconate 15 meq/ Multivitamins 10 ml/Chromium/ Copper/Manganese/ Seleni/Zn 0.5 ml/ Insulin Human Regular 15 unit/ Total Parenteral Nutrition/Amino Acids/Dextrose/ Fat Emulsion Intravenous 1,400 ml @ 58.333 mls/ hr TPN CONT IV Last administered on 07/16/19at 20:34; Start 07/16/19 at 22:00; Stop 07/17/19 at 21:59; Status DC Info (Icu Electrolyte Protocol) 1 ea CONT PRN PRN MC PER PROTOCOL; Start 07/17/19 at 13:15 Sodium Chloride 90 meq/Potassium Chloride 15 meq/ Potassium Phosphate 18 mmol/ Magnesium Sulfate 8 meq/Calcium Gluconate 15 meq/ Multivitamins 10 ml/Chromium/ Copper/Manganese/ Seleni/Zn 0.5 ml/ Insulin Human Regular 15 unit/ Total Parenteral Nutrition/Amino Acids/Dextrose/ Fat Emulsion Intravenous 1,400 ml @ 58.333 mls/ hr TPN CONT IV Last administered on 07/17/19at 22:05; Start 07/17/19 at 22:00; Stop 07/18/19 at 21:59; Status DC Potassium Chloride 15 meq/ Bicarbonate Dialysis Soln w/ out KCl 5,007.5 ml @ 1,000 mls/ hr Q5H1M IV Last administered on 07/20/19at 18:14; Start 07/17/19 at 20:00; Stop 07/21/19 at 13:08; Status DC Potassium Chloride 15 meq/ Bicarbonate Dialysis Soln w/ out KCl 5,007.5 ml @ 1, 000 mls/ hr Q5H1M IV Last administered on 07/20/19at 18:14; Start 07/17/19 at 20:00; Stop 07/21/19 at 13:08; Status DC Potassium Chloride 15 meq/ Bicarbonate Dialysis Soln w/ out KCl 5,007.5 ml @ 1,000 mls/ hr Q5H1M IV Last administered on 07/20/19at 18:14; Start 07/17/19 at 20:00; Stop 07/21/19 at 13:08; Status DC Iohexol (Omnipaque 240 Mg/ml) 30 ml 1X ONCE PO Last administered on 07/18/19at 11:30; Start 07/18/19 at 11:30; Stop 07/18/19 at 11:33; Status DC Info (CONTRAST GIVEN -- Rx MONITORING) 1 each PRN DAILY PRN MC SEE COMMENTS; Start 07/18/19 at 11:45; Stop 07/20/19 at 11:44; Status DC Sodium Chloride 90 meq/Potassium Chloride 15 meq/ Potassium Phosphate 18 mmol/ Magnesium Sulfate 8 meq/Calcium Gluconate 15 meq/ Multivitamins 10 ml/Chromium/ Copper/Manganese/ Seleni/Zn 0.5 ml/ Insulin Human Regular 15 unit/ Total Parenteral Nutrition/Amino Acids/Dextrose/ Fat Emulsion Intravenous 1,400 ml @ 58.333 mls/ hr TPN CONT IV Last administered on 07/18/19at 21:47; Start 07/18/19 at 22:00; Stop 07/19/19 at 21:59; Status DC Sodium Chloride 90 meq/Potassium Chloride 15 meq/ Potassium Phosphate 18 mmol/ Magnesium Sulfate 8 meq/Calcium Gluconate 15 meq/ Multivitamins 10 ml/Chromium/ Copper/Manganese/ Seleni/Zn 0.5 ml/ Insulin Human Regular 20 unit/ Total Parenteral Nutrition/Amino Acids/Dextrose/ Fat Emulsion Intravenous 1,400 ml @ 58.333 mls/ hr TPN CONT IV Last administered on 07/19/19at 21:36; Start 07/19/19 at 22:00; Stop 07/20/19 at 21:59; Status DC Alteplase, Recombinant (Cathflo For Central Catheter Clearance) 1 mg 1X ONCE INT CAT Last administered on 07/19/19at 20:03; Start 07/19/19 at 19:30; Stop 07/19/19 at 19:46; Status DC Alteplase, Recombinant (Cathflo For Central Catheter Clearance) 1 mg 1X ONCE INT CAT Last administered on 07/19/19at 22:05; Start 07/19/19 at 22:00; Stop 07/19/19 at 22:01; Status DC Sodium Chloride 90 meq/Potassium Chloride 15 meq/ Potassium Phosphate 18 mmol/ Magnesium Sulfate 8 meq/Calcium Gluconate 15 meq/ Multivitamins 10 ml/Chromium/ Copper/Manganese/ Seleni/Zn 0.5 ml/ Insulin Human Regular 20 unit/ Total Parenteral Nutrition/Amino Acids/Dextrose/ Fat Emulsion Intravenous 1,400 ml @ 58.333 mls/ hr TPN CONT IV Last administered on 07/20/19at 21:30; Start 07/20/19 at 22:00; Stop 07/21/19 at 21:59; Status DC Dexmedetomidine HCl 400 mcg/ Sodium Chloride 100 ml @ 0 mls/hr CONT PRN IV ANXIETY / AGITATION Last administered on 07/27/19at 15:36; Start 07/21/19 at 08:15 Sodium Chloride 500 ml @ 500 mls/hr 1X PRN PRN IV ELEVATED BP, SEE COMMENTS; Start 07/21/19 at 08:15 Atropine Sulfate (ATROPINE 0.5mg SYRINGE) 0.5 mg PRN Q5MIN PRN IV SEE COMMENTS; Start 07/21/19 at 08:15 Furosemide (Lasix) 20 mg 1X ONCE IVP Last administered on 07/21/19at 08:19; Start 07/21/19 at 08:15; Stop 07/21/19 at 08:16; Status DC Lidocaine HCl (Buffered Lidocaine 1%) 3 ml STK-MED ONCE .ROUTE ; Start 07/21/19 at 08:39; Stop 07/21/19 at 08:39; Status DC Lidocaine HCl (Buffered Lidocaine 1%) 6 ml 1X ONCE INJ Last administered on 07/21/19at 09:05; Start 07/21/19 at 09:00; Stop 07/21/19 at 09:06; Status DC Sodium Chloride 90 meq/Potassium Chloride 15 meq/ Potassium Phosphate 18 mmol/ Magnesium Sulfate 8 meq/Calcium Gluconate 15 meq/ Multivitamins 10 ml/Chromium/ Copper/Manganese/ Seleni/Zn 0.5 ml/ Insulin Human Regular 20 unit/ Total Parenteral Nutrition/Amino Acids/Dextrose/ Fat Emulsion Intravenous 1,400 ml @ 58.333 mls/ hr TPN CONT IV Last administered on 07/21/19at 22:45; Start 07/21/19 at 22:00; Stop 07/22/19 at 21:59; Status DC Sodium Chloride 1,000 ml @ 1,000 mls/hr Q1H PRN IV hypotension; Start 07/22/19 at 07:30; Stop 07/22/19 at 13:29; Status DC Albumin Human 200 ml @ 200 mls/hr 1X PRN PRN IV Hypotension Last administered on 07/22/19at 09:36; Start 07/22/19 at 07:30; Stop 07/22/19 at 13:29; Status DC Sodium Chloride (Normal Saline Flush) 10 ml 1X PRN PRN IV AP catheter pack; Start 07/22/19 at 07:30; Stop 07/22/19 at 21:29; Status DC Sodium Chloride (Normal Saline Flush) 10 ml 1X PRN PRN IV 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; Start 07/22/19 at 07:30; Stop 07/23/19 at 07:29; Status DC Sodium Chloride 1,000 ml @ 400 mls/hr Q2H30M PRN IV PATENCY; Start 07/22/19 at 07:30; Stop 07/22/19 at 19:29; Status DC Info (PHARMACY MONITORING -- do not chart) 1 each PRN DAILY PRN MC SEE COMMENTS; Start 07/22/19 at 07:30; Stop 07/22/19 at 13:02; Status DC Info (PHARMACY MONITORING -- do not chart) 1 each PRN DAILY PRN MC SEE COMMENTS; Start 07/22/19 at 07:30; Stop 07/24/19 at 12:45; Status DC Sodium Chloride 90 meq/Potassium Chloride 15 meq/ Potassium Phosphate 10 mmol/ Magnesium Sulfate 8 meq/Calcium Gluconate 15 meq/ Multivitamins 10 ml/Chromium/ Copper/Manganese/ Seleni/Zn 0.5 ml/ Insulin Human Regular 25 unit/ Total Parenteral Nutrition/Amino Acids/Dextrose/ Fat Emulsion Intravenous 1,400 ml @ 58.333 mls/ hr TPN CONT IV Last administered on 07/22/19at 22:19; Start 07/22/19 at 22:00; Stop 07/23/19 at 21:59; Status DC Heparin Sodium (Porcine) (Heparin Sodium) 5,000 unit Q12HR SQ Last administered on 07/27/19at 13:22; Start 07/22/19 at 21:00 Ondansetron HCl (Zofran) 4 mg PRN Q6HRS PRN IV NAUSEA/VOMITING; Start 07/25/19 at 07:00; Stop 07/26/19 at 06:59; Status DC Fentanyl Citrate (Fentanyl 2ml Vial) 25 mcg PRN Q5MIN PRN IV MILD PAIN 1-3; Start 07/25/19 at 07:00; Stop 07/26/19 at 06:59; Status DC Fentanyl Citrate (Fentanyl 2ml Vial) 50 mcg PRN Q5MIN PRN IV MODERATE TO SEVERE PAIN; Start 07/25/19 at 07:00; Stop 07/26/19 at 06:59; Status DC Ringer's Solution 1,000 ml @ 30 mls/hr Q24H IV ; Start 07/25/19 at 07:00; Stop 07/25/19 at 18:59; Status DC Lidocaine HCl (Xylocaine-Mpf 1% 2ml Vial) 2 ml PRN 1X PRN ID PRIOR TO IV START; Start 07/25/19 at 07:00; Stop 07/26/19 at 06:59; Status DC Prochlorperazine Edisylate (Compazine) 5 mg PACU PRN PRN IV NAUSEA, MRX1; Start 07/25/19 at 07:00; Stop 07/26/19 at 06:59; Status DC Sodium Chloride 1,000 ml @ 1,000 mls/hr Q1H PRN IV hypotension; Start 07/23/19 at 09:10; Stop 07/23/19 at 15:09; Status DC Albumin Human 200 ml @ 200 mls/hr 1X PRN PRN IV Hypotension Last administered on 07/23/19at 10:10; Start 07/23/19 at 09:15; Stop 07/23/19 at 15:14; Status DC Sodium Chloride 1,000 ml @ 400 mls/hr Q2H30M PRN IV PATENCY; Start 07/23/19 at 09:10; Stop 07/23/19 at 21:09; Status DC Info (PHARMACY MONITORING -- do not chart) 1 each PRN DAILY PRN MC SEE COMMENTS; Start 07/23/19 at 09:15; Stop 07/24/19 at 12:45; Status DC Info (PHARMACY MONITORING -- do not chart) 1 each PRN DAILY PRN MC SEE PIPE TS; Start 07/23/19 at 09:15; Stop 07/24/19 at 12:45; Status DC Sodium Chloride 90 meq/Potassium Chloride 15 meq/ Potassium Phosphate 10 mmol/ Magnesium Sulfate 8 meq/Calcium Gluconate 15 meq/ Multivitamins 10 ml/Chromium/ Copper/Manganese/ Seleni/Zn 0.5 ml/ Insulin Human Regular 25 unit/ Total Parenteral Nutrition/Amino Acids/Dextrose/ Fat Emulsion Intravenous 1,400 ml @ 58.333 mls/ hr TPN CONT IV Last administered on 07/23/19at 22:10; Start 07/23/19 at 22:00; Stop 07/24/19 at 21:59; Status DC Magnesium Sulfate 50 ml @ 25 mls/hr PRN DAILY PRN IV for Mag < 1.7 on am labs; Start 07/24/19 at 09:15 Sodium Chloride 90 meq/Potassium Chloride 15 meq/ Potassium Phosphate 10 mmol/ Magnesium Sulfate 8 meq/Calcium Gluconate 15 meq/ Multivitamins 10 ml/Chromium/ Copper/Manganese/ Seleni/Zn 0.5 ml/ Insulin Human Regular 25 unit/ Total Parenteral Nutrition/Amino Acids/Dextrose/ Fat Emulsion Intravenous 1,400 ml @ 58.333 mls/ hr TPN CONT IV Last administered on 07/24/19at 21:20; Start 07/24/19 at 22:00; Stop 07/25/19 at 21:59; Status DC Sodium Chloride 1,000 ml @ 1,000 mls/hr Q1H PRN IV hypotension; Start 07/24/19 at 12:23; Stop 07/24/19 at 18:22; Status DC Albumin Human 200 ml @ 200 mls/hr 1X ONCE IV Last administered on 07/24/19at 13:34; Start 07/24/19 at 12:30; Stop 07/24/19 at 13:29; Status DC Diphenhydramine HCl (Benadryl) 25 mg 1X PRN PRN IV ITCHING; Start 07/24/19 at 12:30; Stop 07/25/19 at 12:29; Status DC Diphenhydramine HCl (Benadryl) 25 mg 1X PRN PRN IV ITCHING; Start 07/24/19 at 12:30; Stop 07/25/19 at 12:29; Status DC Info (PHARMACY MONITORING -- do not chart) 1 each PRN DAILY PRN MC SEE COMMENTS; Start 07/24/19 at 12:30; Status Cancel Bupivacaine HCl/ Epinephrine Bitart (Sensorcain-Epi 0.5%-1:[id number] Mpf) 30 ml STK-MED ONCE .ROUTE Last administered on 07/25/19at 11:44; Start 07/25/19 at 11:00; Stop 07/25/19 at 11:01; Status DC Cellulose (Surgicel Fibrillar 1x2) 1 each STK-MED ONCE .ROUTE ; Start 07/25/19 at 11:00; Stop 07/25/19 at 11:01; Status DC Sodium Chloride 90 meq/Potassium Chloride 15 meq/ Potassium Phosphate 10 mmol/ Magnesium Sulfate 12 meq/Calcium Gluconate 15 meq/ Multivitamins 10 ml/Chromium/ Copper/Manganese/ Seleni/Zn 0.5 ml/ Insulin Human Regular 25 unit/ Total Parenteral Nutrition/Amino Acids/Dextrose/ Fat Emulsion Intravenous 1,400 ml @ 58.333 mls/ hr TPN CONT IV Last administered on 07/25/19at 22:24; Start 07/25/19 at 22:00; Stop 07/26/19 at 21:59; Status DC Propofol 20 ml @ As Directed STK-MED ONCE IV ; Start 07/25/19 at 11:07; Stop 07/25/19 at 11:07; Status DC Cellulose (Surgicel Hemostat 4x8) 1 each STK-MED ONCE .ROUTE Last administered on 07/25/19at 11:44; Start 07/25/19 at 11:55; Stop 07/25/19 at 11:56; Status DC Sevoflurane (Ultane) 60 ml STK-MED ONCE IH ; Start 07/25/19 at 12:46; Stop 07/25/19 at 12:46; Status DC Sodium Chloride 1,000 ml @ 1,000 mls/hr Q1H PRN IV hypotension; Start 07/25/19 at 13:51; Stop 07/25/19 at 19:50; Status DC Albumin Human 200 ml @ 200 mls/hr 1X PRN PRN IV Hypotension Last administered on 07/25/19at 14:51; Start 07/25/19 at 14:00; Stop 07/25/19 at 19:59; Status DC Diphenhydramine HCl (Benadryl) 25 mg 1X PRN PRN IV ITCHING; Start 07/25/19 at 14:00; Stop 07/26/19 at 13:59; Status DC Diphenhydramine HCl (Benadryl) 25 mg 1X PRN PRN IV ITCHING; Start 07/25/19 at 14:00; Stop 07/26/19 at 13:59; Status DC Sodium Chloride 1,000 ml @ 400 mls/hr Q2H30M PRN IV PATENCY; Start 07/25/19 at 13:51; Stop 07/26/19 at 01:50; Status DC Info (PHARMACY MONITORING -- do not chart) 1 each PRN DAILY PRN MC SEE COMMENTS; Start 07/25/19 at 14:00 Heparin Sodium (Porcine) (Hep Lock Adult) 500 unit STK-MED ONCE IVP ; Start 07/26/19 at 09:29; Stop 07/26/19 at 09:30; Status DC Sodium Chloride 1,000 ml @ 1,000 mls/hr Q1H PRN IV hypotension; Start 07/26/19 at 10:43; Stop 07/26/19 at 16:42; Status DC Sodium Chloride 1,000 ml @ 400 mls/hr Q2H30M PRN IV PATENCY; Start 07/26/19 at 10:43; Stop 07/26/19 at 22:42; Status DC Info (PHARMACY MONITORING -- do not chart) 1 each PRN DAILY PRN MC SEE COM MENTS; Start 07/26/19 at 10:45; Status UNV Info (PHARMACY MONITORING -- do not chart) 1 each PRN DAILY PRN MC SEE COMMENTS; Start 07/26/19 at 10:45; Status UNV Sodium Chloride 90 meq/Potassium Chloride 15 meq/ Magnesium Sulfate 12 meq/Calcium Gluconate 15 meq/ Multivitamins 10 ml/Chromium/ Copper/Manganese/ Seleni/Zn 0.5 ml/ Insulin Human Regular 25 unit/ Total Parenteral Nutritio n/Amino Acids/Dextrose/ Fat Emulsion Intravenous 1,400 ml @ 58.333 mls/ hr TPN CONT IV Last administered on 07/26/19at 22:13; Start 07/26/19 at 22:00; Stop 07/27/19 at 21:59 Sodium Chloride 1,000 ml @ 1,000 mls/hr Q1H PRN IV hypotension; Start 07/27/19 at 07:50; Stop 07/27/19 at 13:49; Status DC Albumin Human 200 ml @ 200 mls/hr 1X ONCE IV ; Start 07/27/19 at 08:00; Stop 07/27/19 at 08:53; Status DC Diphenhydramine HCl (Benadryl) 25 mg 1X PRN PRN IV ITCHING; Start 07/27/19 at 08:00; Stop 07/28/19 at 07:59 Diphenhydramine HCl (Benadryl) 25 mg 1X PRN PRN IV ITCHING; Start 07/27/19 at 08:00; Stop 07/28/19 at 07:59 Info (PHARMACY MONITORING -- do not chart) 1 each PRN DAILY PRN MC SEE COMMENTS; Start 07/27/19 at 08:00 Albumin Human 50 ml @ 50 mls/hr 1X ONCE IV ; Start 07/27/19 at 08:53; Stop 07/27/19 at 08:56; Status DC Albumin Human 200 ml @ 50 mls/hr PRN 1X PRN IV HYPOTENSION Last administered on 07/27/19at 09:09; Start 07/27/19 at 09:00 Meropenem 500 mg/ Sodium Chloride 50 ml @ 100 mls/hr Q12H IV Last administered on 07/27/19at 13:30; Start 07/27/19 at 10:00 Sodium Chloride 90 meq/Magnesium Sulfate 12 meq/ Calcium Gluconate 15 meq/ Multivitamins 10 ml/Chromium/ Copper/Manganese/ Seleni/Zn 0.5 ml/ Insulin Human Regular 25 unit/ Total Parenteral Nutrition/Amino Acids/Dextrose/ Fat Emulsion Intravenous 1,400 ml @ 58.333 mls/ hr TPN CONT IV ; Start 07/27/19 at 22:00; Stop 07/28/19 at 21:59 Active Scripts Active Reported Bisoprolol Fumarate 5 Mg Tablet 10 Mg PO DAILY Vitals/I & O Vital Sign - Last 24 Hours 07/26/19 07/26/19 07/26/19 07/26/19 17:00 17:30 18:00 19:00 Pulse 105 106 100 98 Resp 18 18 18 18 B/P (MAP) 147/80 (102) 156/89 (111) 137/85 (102) 142/90 (107) Pulse Ox 97 98 96 99 O2 Delivery Ventilator Ventilator Ventilator Ventilator 07/26/19 07/26/19 07/26/19 07/26/19 20:00 20:00 20:42 21:00 Temp 98.3 98.3 Pulse 98 103 Resp 18 17 B/P (MAP) 140/92 (108) 126/79 (95) Pulse Ox 99 99 99 O2 Delivery Ventilator Mechanical Ventilator Ventilator Ventilator 07/26/19 07/26/19 07/26/19 07/26/19 21:08 21:12 22:00 22:05 Pulse 105 Resp 18 B/P (MAP) 137/76 (96) Pulse Ox 98 99 99 98 O2 Delivery Ventilator Ventilator Ventilator 07/26/19 07/26/19 07/27/19 07/27/19 23:00 23:49 00:00 00:00 Temp 99.1 99.1 Pulse 100 103 Resp 18 18 B/P (MAP) 109/62 (78) 114/63 (80) Pulse Ox 98 100 99 O2 Delivery Ventilator Ventilator Mechanical Ventilator Ventilator 07/27/19 07/27/19 07/27/19 07/27/19 01:00 01:36 02:00 03:00 Pulse 107 104 104 Resp 18 18 18 B/P (MAP) 129/70 (89) 115/61 (79) 116/72 (87) Pulse Ox 97 100 99 99 O2 Delivery Ventilator Ventilator Ventilator Ventilator 07/27/19 07/27/19 07/27/19 07/27/19 04:00 04:00 04:06 04:55 Temp 100.2 100.2 Pulse 104 Resp 18 B/P (MAP) 113/64 (80) Pulse Ox 99 99 99 O2 Delivery Ventilator Mechanical Ventilator Ventilator 07/27/19 07/27/19 07/27/19 07/27/19 05:00 05:25 06:00 07:00 Pulse 104 104 104 Resp 19 19 18 B/P (MAP) 119/67 (84) 135/72 (93) 112/62 (79) Pulse Ox 99 98 98 99 O2 Delivery Ventilator Ventilator Ventilator Ventilator 07/27/19 07/27/19 07/27/19 07/27/19 08:00 08:00 08:00 11:54 Temp 100.6 100.6 Pulse 106 Resp 18 B/P (MAP) 116/62 (80) Pulse Ox 98 99 100 O2 Delivery Ventilator Mechanical Ventilator Ventilator Ventilator 07/27/19 07/27/19 07/27/19 07/27/19 12:00 13:00 13:15 13:29 Temp 100.8 100.8 Pulse 102 112 Resp 18 18 B/P (MAP) 137/87 (104) 199/93 (128) Pulse Ox 99 99 O2 Delivery Mechanical Ventilator Ventilator Ventilator 07/27/19 07/27/19 07/27/19 07/27/19 13:30 13:45 14:00 14:01 Pulse 100 108 108 Resp 18 18 18 18 B/P (MAP) 204/110 (141) 114/66 (82) 94/55 (68) Pulse Ox 98 98 98 98 O2 Delivery Ventilator Ventilator Ventilator Ventilator 07/27/19 07/27/19 07/27/19 07/27/19 14:15 14:30 15:00 15:30 Pulse 108 108 101 96 Resp 18 18 18 18 B/P (MAP) 120/72 (88) 132/87 (102) 122/68 (86) 97/55 (69) Pulse Ox 98 98 98 98 O2 Delivery Ventilator Ventilator Ventilator Ventilator 07/27/19 07/27/19 07/27/19 15:45 15:53 16:00 Pulse 96 B/P (MAP) 98/56 (70) Pulse Ox 97 O2 Delivery Ventilator Mechanical Ventilator Intake and Output 07/26/19 07/26/19 07/27/19 15:00 23:00 07:00 Intake Total 1309.57 ml 1187 ml Output Total 220 ml 230 ml 125 ml Balance -220 ml 1079.57 ml 1062 ml Hemodynamically unstable?: No Is patient in severe pain?: No Is NPO status required?: Yes NIELS MCGILL MD Jul 27, 2019 16:42
[2019-07-27] MEDS ORDERED: [UNRECOGNIZED DRUG - OTHER] IV SCH ×9 (22:00)
[2019-07-27] MEDS ORDERED: DEXTROSE 70% IV SCH ×9 (22:00)
[2019-07-27] MEDS ORDERED: AMINO ACID IV SCH ×9 (22:00)
[2019-07-27] MEDS ORDERED: TOTAL PARENTERAL NUTRITION IV SCH ×9 (22:00)
[2019-07-28] VITALS (22 sets, daily range): BP systolic 86–130; BP diastolic 52–71
[2019-07-28] MEDS: INSULIN LISPRO 300 UNITS/3 ML VIAL. SQ SCH ×4 (00:06→18:00)
[2019-07-28] MEDS: DEXMEDETOMIDINE 400 MCG in IV NORMAL SALINE 100ML 96 ML IV PRN ×5 (01:23→20:53)
--- NOTE | 2019-07-28 04:43 | RAD ---
EXAM: CHEST ONE VIEW. HISTORY: Ventilated, respiratory failure. COMPARISON: 07/26/2019. FINDINGS: A frontal view of the chest is obtained. A tracheostomy appliance is in expected position. A right internal jugular hemodialysis catheter has its tip in the superior cavoatrial junction. A left subclavian central venous catheter has its tip in the superior cavoatrial junction. A right arm PICC line has its tip in the superior vena cava. A nasogastric tube has its tip below the inferior margin of the view. There are moderate right and small left pleural effusions. Airspace opacities in the bases are consistent with atelectasis and mild to moderate pulmonary edema. There is no pneumothorax. The heart is not enlarged. IMPRESSION: 1. Moderate right and small left pleural effusions and mild to moderate pulmonary edema appear stable. Electronically signed by: Enzo Perera MD (07/28/2019 4:40 AM) [facility]
[2019-07-28 06:43] LABS: ALBUMIN 2.6 g/dL (3.4-5.0); CALCIUM 8.7 mg/dL (8.5-10.1); CREATININE 2.2 mg/dL (0.6-1.0); GFR 23.7; MAGNESIUM 2.1 mg/dL (1.8-2.4); PHOSPHORUS 3.6 mg/dL (2.6-4.7); POTASSIUM 3.7 mmol/L (3.5-5.1)
[2019-07-28 06:59] LABS: HEMATOCRIT 22.9 % (36.0-47.0); HEMOGLOBIN 7.4 g/dL (12.0-15.5); RED BLOOD COUNT 2.3 x10^6/uL (3.50-5.40); RED CELL DISTRIBUTION WIDTH 20.1 % (11.5-14.5)
[2019-07-28] MEDS ORDERED: IV NORMAL SALINE 1000ML BAG 1,000 ML IV PRN ×2 (07:58)
[2019-07-28] MEDS ORDERED: DIALYSIS PATIENT. MC PRN ×2 (08:00→08:15)
[2019-07-28] MEDS ORDERED: ALBUMIN HUMAN 25% 200 ML IV PRN (08:00)
[2019-07-28 08:45] LABS: BASE EXCESS ABG 2 mmol/L (-3-3); HCO3 ABG 27 mmol/L (21-28); PCO2 ABG 45 mmHg (35-46); PO2 ABG 69 mmHg (75-108); SAT O2 ABG 92 % (92-99)
[2019-07-28 08:49] LABS: FIO2 ABG 35
--- NOTE | 2019-07-28 09:47 | PDOC ---
SURGICAL PROGRESS NOTE Subjective seen during dialysis appears no acute changes Vital Signs Vital Signs Date Time Temp Pulse Resp B/P (MAP) Pulse Ox O2 Delivery O2 Flow Rate FiO2 07/28/19 08:08 98 Ventilator 07/28/19 08:00 99.8 95 18 94/53 (67) 99.8 I&O Intake and Output 07/28/19 07:00 Intake Total 3304.78 ml Output Total 570 ml Balance 2734.78 ml IV Total 3304.78 ml Output Urine Total 220 ml Gastric Drainage Total 350 ml HEENT: Other (trach intact ) Abdomen: Other (distended, firm) Labs Laboratory Tests Test 07/26/19 18:03 07/26/19 23:40 07/27/19 06:10 07/27/19 06:17 Glucose (Fingerstick) 134 mg/dL (70-99) 167 mg/dL (70-99) 182 mg/dL (70-99) Sodium Level 135 mmol/L (136-145) Potassium Level 4.9 mmol/L (3.5-5.1) Chloride Level 102 mmol/L (98-107) Carbon Dioxide Level 24 mmol/L (21-32) Anion Gap 9 (6-14) Blood Urea Nitrogen 61 mg/dL (7-20) Creatinine 2.0 mg/dL (0.6-1.0) Estimated GFR (Cockcroft-Gault) 26.5 Glucose Level 187 mg/dL (70-99) Calcium Level 8.7 mg/dL (8.5-10.1) Phosphorus Level 4.8 mg/dL (2.6-4.7) Magnesium Level 1.9 mg/dL (1.8-2.4) Albumin 2.3 g/dL (3.4-5.0) Test 07/27/19 08:25 07/27/19 13:22 07/27/19 17:45 07/28/19 00:03 O2 Saturation 99 % (92-99) Arterial Blood pH 7.34 (7.35-7.45) Arterial Blood pCO2 at Patient Temp 36 mmHg (35-46) Arterial Blood pO2 at Patient Temp 242 mmHg (75-108) Arterial Blood HCO3 19 mmol/L (21-28) Arterial Blood Base Excess -6 mmol/L (-3-3) FiO2 40 Glucose (Fingerstick) 153 mg/dL (70-99) 197 mg/dL (70-99) 206 mg/dL (70-99) Test 07/28/19 06:15 07/28/19 08:00 White Blood Count 12.0 x10^3/uL (4.0-11.0) Red Blood Count 2.30 x10^6/uL (3.50-5.40) Hemoglobin 7.4 g/dL (12.0-15.5) Hematocrit 22.9 % (36.0-47.0) Mean Corpuscular Volume 100 fL (79-100) Mean Corpuscular Hemoglobin 32 pg (25-35) Mean Corpuscular Hemoglobin Concent 32 g/dL (31-37) Red Cell Distribution Width 20.1 % (11.5-14.5) Platelet Count 328 x10^3/uL (140-400) Sodium Level 137 mmol/L (136-145) Potassium Level 3.7 mmol/L (3.5-5.1) Chloride Level 99 mmol/L (98-107) Carbon Dioxide Level 29 mmol/L (21-32) Anion Gap 9 (6-14) Blood Urea Nitrogen 51 mg/dL (7-20) Creatinine 2.2 mg/dL (0.6-1.0) Estimated GFR (Cockcroft-Gault) 23.7 Glucose Level 211 mg/dL (70-99) Glucose (Fingerstick) 203 mg/dL (70-99) Calcium Level 8.7 mg/dL (8.5-10.1) Phosphorus Level 3.6 mg/dL (2.6-4.7) Magnesium Level 2.1 mg/dL (1.8-2.4) Albumin 2.6 g/dL (3.4-5.0) O2 Saturation 92 % (92-99) Arterial Blood pH 7.40 (7.35-7.45) Arterial Blood pCO2 at Patient Temp 45 mmHg (35-46) Arterial Blood pO2 at Patient Temp 69 mmHg (75-108) Arterial Blood HCO3 27 mmol/L (21-28) Arterial Blood Base Excess 2 mmol/L (-3-3) FiO2 35 Laboratory Tests Test 07/27/19 13:22 07/27/19 17:45 07/28/19 00:03 07/28/19 06:15 Glucose (Fingerstick) 153 mg/dL (70-99) 197 mg/dL (70-99) 206 mg/dL (70-99) 203 mg/dL (70-99) White Blood Count 12.0 x10^3/uL (4.0-11.0) Red Blood Count 2.30 x10^6/uL (3.50-5.40) Hemoglobin 7.4 g/dL (12.0-15.5) Hematocrit 22.9 % (36.0-47.0) Mean Corpuscular Volume 100 fL (79-100) Mean Corpuscular Hemoglobin 32 pg (25-35) Mean Corpuscular Hemoglobin Concent 32 g/dL (31-37) Red Cell Distribution Width 20.1 % (11.5-14.5) Platelet Count 328 x10^3/uL (140-400) Sodium Level 137 mmol/L (136-145) Potassium Level 3.7 mmol/L (3.5-5.1) Chloride Level 99 mmol/L (98-107) Carbon Dioxide Level 29 mmol/L (21-32) Anion Gap 9 (6-14) Blood Urea Nitrogen 51 mg/dL (7-20) Creatinine 2.2 mg/dL (0.6-1.0) Estimated GFR (Cockcroft-Gault) 23.7 Glucose Level 211 mg/dL (70-99) Calcium Level 8.7 mg/dL (8.5-10.1) Phosphorus Level 3.6 mg/dL (2.6-4.7) Magnesium Level 2.1 mg/dL (1.8-2.4) Albumin 2.6 g/dL (3.4-5.0) Test 07/28/19 08:00 O2 Saturation 92 % (92-99) Arterial Blood pH 7.40 (7.35-7.45) Arterial Blood pCO2 at Patient Temp 45 mmHg (35-46) Arterial Blood pO2 at Patient Temp 69 mmHg (75-108) Arterial Blood HCO3 27 mmol/L (21-28) Arterial Blood Base Excess 2 mmol/L (-3-3) FiO2 35 Problem List Problems Medical Problems: (1) Acute pancreatitis Status: Acute (2) Cholelithiasis Status: Acute Assessment/Plan supportive care 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 APRN Jul 28, 2019 09:47
--- NOTE | 2019-07-28 11:07 | PDOC ---
Objective: Vital Signs: Vital Signs Date Time Temp Pulse Resp B/P (MAP) Pulse Ox O2 Delivery O2 Flow Rate FiO2 07/28/19 10:26 98 07/28/19 08:08 Ventilator 07/28/19 08:00 99.8 95 18 94/53 (67) 99.8 Labs: Laboratory Tests Test 07/27/19 13:22 07/27/19 17:45 07/28/19 00:03 07/28/19 06:15 Glucose (Fingerstick) 153 mg/dL 197 mg/dL 206 mg/dL 203 mg/dL White Blood Count 12.0 x10^3/uL Red Blood Count 2.30 x10^6/uL Hemoglobin 7.4 g/dL Hematocrit 22.9 % Mean Corpuscular Volume 100 fL Mean Corpuscular Hemoglobin 32 pg Mean Corpuscular Hemoglobin Concent 32 g/dL Red Cell Distribution Width 20.1 % Platelet Count 328 x10^3/uL Sodium Level 137 mmol/L Potassium Level 3.7 mmol/L Chloride Level 99 mmol/L Carbon Dioxide Level 29 mmol/L Anion Gap 9 Blood Urea Nitrogen 51 mg/dL Creatinine 2.2 mg/dL Estimated GFR (Cockcroft-Gault) 23.7 Glucose Level 211 mg/dL Calcium Level 8.7 mg/dL Phosphorus Level 3.6 mg/dL Magnesium Level 2.1 mg/dL Albumin 2.6 g/dL Test 07/28/19 08:00 O2 Saturation 92 % Arterial Blood pH 7.40 Arterial Blood pCO2 at Patient Temp 45 mmHg Arterial Blood pO2 at Patient Temp 69 mmHg Arterial Blood HCO3 27 mmol/L Arterial Blood Base Excess 2 mmol/L FiO2 35 PE: GEN: dialyzing LUNGS: trach/vent, clear HEART: RRR ABD: quiet, distended, NG bilious, rectal tube NEURO/PSYCH: sedated A/P: Gallstone pancreatitis, MOSF -- Continue same. Hemodynamically unstable?: No Is patient in severe pain?: No Is NPO status required?: Yes CYNDEE FALCON Jul 28, 2019 11:07
--- NOTE | 2019-07-28 11:23 | PDOC ---
Infectious Disease Note Subjective: Subjective Sedated and intubated, T max 99.8 TPN Rectal tube Vital Signs: Vital Signs Vital Signs Date Time Temp Pulse Resp B/P (MAP) Pulse Ox O2 Delivery O2 Flow Rate FiO2 07/28/19 10:26 98 07/28/19 08:08 Ventilator 07/28/19 08:00 99.8 95 18 94/53 (67) 99.8 Physical Exam: PHYSICAL EXAM GENERAL: Orally intubated/sedated - generalized anasarca HEENT: Pupils equal, ETT, dobhoff + NECK: Supple LUNGS: Diminished aeration bases HEART: S1, S2, regular ABDOMEN: Distended, hypoactive BS, Rectal tube in place : Lind EXTREMITIES: Generalized edema, no cyanosis - some mottling, Rooke boots & SCDs bilaterally DERMATOLOGIC: Warm and dry. No generalized rash. CENTRAL NERVOUS SYSTEM: Sedated RIJ Temp HDC, RUE-PICC Lt IJ removed 07/25 Chestwall line present Medications: Inpatient Meds: Current Medications Medications (Trade) Dose Ordered Sig/Yvon Start Time Stop Time Status Last Admin Dose Admin Acetaminophen (Tylenol Supp) 650 mg PRN Q6HRS PRN 07/12/19 10:30 07/12/19 10:37 650 MG Acetaminophen (Tylenol) 650 mg PRN Q6HRS PRN 07/09/19 03:36 07/14/19 07:35 650 MG Albumin Human 200 ml @ 200 mls/hr 1X PRN PRN 07/28/19 08:00 07/28/19 13:59 07/28/19 09:30 200 MLS/HR Albuterol Sulfate (Ventolin Neb Soln) 2.5 mg 1X ONCE 07/05/19 22:30 07/05/19 22:31 DC 07/06/19 00:56 2.5 MG Alteplase, Recombinant (Cathflo For Central Catheter Clearance) 1 mg 1X ONCE 07/19/19 22:00 07/19/19 22:01 DC 07/19/19 22:05 1 MG Artificial Tears (Artificial Tears) 1 drop PRN Q1HR PRN 07/11/19 08:15 Atenolol (Tenormin) 100 mg DAILY 07/05/19 09:00 07/04/19 20:08 DC Atropine Sulfate (ATROPINE 0.5mg SYRINGE) 0.5 mg PRN Q5MIN PRN 07/21/19 08:15 Benzocaine (Hurricaine One) 1 spray 1X ONCE 07/08/19 14:30 07/08/19 14:31 DC 07/08/19 16:38 1 SPRAY Bupivacaine HCl/ Epinephrine Bitart (Sensorcain-Epi 0.5%-1:930958 Mpf) 30 ml STK-MED ONCE 07/25/19 11:00 07/25/19 11:01 DC 07/25/19 11:44 1 ML Calcium Carbonate/ Glycine (Tums) 500 mg PRN AFTMEALHC PRN 07/06/19 17:45 Calcium Chloride 1000 mg/Sodium Chloride 110 ml @ 220 mls/hr 1X ONCE 07/05/19 22:30 07/05/19 22:59 DC 07/05/19 22:11 220 MLS/HR Calcium Chloride 3000 mg/Sodium Chloride 1,030 ml @ 50 mls/hr [id number] 07/07/19 08:00 07/09/19 15:23 DC 07/09/19 02:17 50 MLS/HR Calcium Gluconate (Calcium Gluconate) 2,000 mg 1X ONCE 07/07/19 02:15 07/07/19 02:16 DC 07/07/19 02:19 2,000 MG Calcium Gluconate 1000 mg/Sodium Chloride 110 ml @ 220 mls/hr 1X ONCE 07/06/19 03:30 07/06/19 03:59 DC 07/06/19 03:21 220 MLS/HR Calcium Gluconate 2000 mg/Sodium Chloride 120 ml @ 220 mls/hr 1X ONCE 07/06/19 07:30 07/06/19 08:02 DC 07/06/19 09:05 220 MLS/HR Cefepime HCl (Maxipime) 2 gm Q12HR 07/13/19 09:00 07/27/19 09:58 DC 07/26/19 20:56 2 GM Cellulose (Surgicel Fibrillar 1x2) 1 each STK-MED ONCE 07/25/19 11:00 07/25/19 11:01 DC Cellulose (Surgicel Hemostat 4x8) 1 each STK-MED ONCE 07/25/19 11:55 07/25/19 11:56 DC 4/6/20 11:44 1 EACH Daptomycin 500 mg/ Sodium Chloride 50 ml @ 100 mls/hr Q48H 07/13/19 08:30 07/27/19 14:02 100 MLS/HR Dexmedetomidine HCl 400 mcg/ Sodium Chloride 100 ml @ 0 mls/hr CONT PRN 07/21/19 08:15 07/28/19 10:00 27.8 MLS/HR Dextrose (Dextrose 50%-Water Syringe) 12.5 gm PRN Q15MIN PRN 07/04/19 09:30 Digoxin (Lanoxin) 125 mcg 1X ONCE 07/07/19 18:00 07/07/19 18:01 DC 07/07/19 17:10 125 MCG Diphenhydramine HCl (Benadryl) 25 mg 1X PRN PRN 07/27/19 08:00 07/28/19 07:59 DC Etomidate (Amidate) 8 mg 1X ONCE 07/11/19 08:30 07/11/19 08:31 DC 07/11/19 08:33 8 MG Fentanyl Citrate (Fentanyl 2ml Vial) 50 mcg PRN Q5MIN PRN 07/25/19 07:00 07/26/19 06:59 DC Furosemide (Lasix) 20 mg 1X ONCE 07/21/19 08:15 07/21/19 08:16 DC 07/21/19 08:19 20 MG Heparin Sodium (Porcine) (Hep Lock Adult) 500 unit STK-MED ONCE 07/26/19 09:29 07/26/19 09:30 DC Heparin Sodium (Porcine) (Heparin Sodium) 5,000 unit Q12HR 07/22/19 21:00 07/27/19 20:59 5,000 UNIT Hydromorphone HCl (Dilaudid) 1 mg PRN Q3HRS PRN 07/05/19 12:00 07/19/19 00:25 DC 07/11/19 05:13 1 MG Info (CONTRAST GIVEN -- Rx MONITORING) 1 each PRN DAILY PRN 07/18/19 11:45 07/20/19 11:44 DC Info (Icu Electrolyte Protocol) 1 ea CONT PRN PRN 07/17/19 13:15 Info (PHARMACY MONITORING -- do not chart) 1 each PRN DAILY PRN 07/28/19 08:15 UNV Info (Tpn Per Pharmacy) 1 each PRN DAILY PRN 07/06/19 12:30 UNV Insulin Human Lispro (HumaLOG) 0-9 UNITS Q6HRS 07/04/19 09:30 07/28/19 06:25 5 UNITS Insulin Human Regular (HumuLIN R VIAL) 5 unit 1X ONCE 07/05/19 22:30 07/05/19 22:31 DC 07/05/19 22:14 5 UNIT Iohexol (Omnipaque 240 Mg/ml) 30 ml 1X ONCE 07/18/19 11:30 07/18/19 11:33 DC 07/18/19 11:30 30 ML Iohexol (Omnipaque 300 Mg/ml) 60 ml 1X ONCE 07/05/19 17:00 07/05/19 17:01 DC 07/05/19 17:20 60 ML Iohexol (Omnipaque 350 Mg/ml) 90 ml 1X ONCE 07/04/19 03:30 07/04/19 03:31 DC 07/04/19 03:25 90 ML Ketorolac Tromethamine (Toradol 30mg Vial) 30 mg 1X ONCE 07/04/19 03:00 07/04/19 03:01 DC 07/04/19 02:54 30 MG Lidocaine HCl (Buffered Lidocaine 1%) 6 ml 1X ONCE 07/21/19 09:00 07/21/19 09:06 DC 07/21/19 09:05 6 ML Lidocaine HCl (Glydo (Lidocaine) Jelly) 1 ramu 1X ONCE 07/08/19 14:30 07/08/19 14:31 DC 07/08/19 16:38 1 RAMU Lidocaine HCl (Xylocaine-Mpf 1% 2ml Vial) 2 ml PRN 1X PRN 07/25/19 07:00 07/26/19 06:59 DC Linezolid/Dextrose 300 ml @ 300 mls/hr Q12HR 07/08/19 20:00 07/15/19 07:50 DC 07/14/19 21:04 300 MLS/HR Lorazepam (Ativan Inj) 1 mg PRN Q4HRS PRN 07/07/19 09:00 07/11/19 00:34 1 MG Magnesium Sulfate 50 ml @ 25 mls/hr PRN DAILY PRN 07/24/19 09:15 Meropenem 1 gm/ Sodium Chloride 100 ml @ 200 mls/hr Q8HRS 07/05/19 20:00 07/06/19 08:48 DC 07/06/19 05:45 200 MLS/HR Meropenem 500 mg/ Sodium Chloride 50 ml @ 100 mls/hr Q12H 07/27/19 10:00 07/27/19 21:51 100 MLS/HR Metoprolol Tartrate (Lopressor Vial) 5 mg Q6HRS 07/05/19 10:15 07/16/19 08:48 DC 07/14/19 00:12 5 MG Metronidazole 100 ml @ 100 mls/hr Q6HRS 07/11/19 08:30 07/27/19 09:58 DC 07/27/19 06:26 100 MLS/HR Micafungin Sodium 100 mg/Dextrose 100 ml @ 100 mls/hr Q24H 07/11/19 09:00 07/27/19 14:28 100 MLS/HR Midazolam HCl (Versed) 5 mg 1X ONCE 07/11/19 08:30 07/11/19 08:31 DC Midazolam HCl 100 mg/Sodium Chloride 100 ml @ 7 mls/hr CONT PRN 07/16/19 16:00 07/27/19 15:35 7 MLS/HR Midazolam HCl 50 mg/Sodium Chloride 50 ml @ 0 mls/hr CONT PRN 07/11/19 08:15 07/16/19 15:59 DC 07/14/19 22:39 7 MLS/HR Morphine Sulfate (Morphine Sulfate) 2 mg PRN Q2HR PRN 07/04/19 05:00 07/05/19 14:15 DC 07/05/19 12:26 2 MG Multi-Ingred Cream/Lotion/Oil/ Oint (Artificial Tears Eye Ointment) 1 ramu PRN Q1HR PRN 07/13/19 17:30 07/22/19 11:05 1 RAMU Norepinephrine Bitartrate 8 mg/ Dextrose 258 ml @ 17.299 mls/ hr CONT PRN 07/05/19 15:30 07/27/19 13:45 20.5 MLS/HR Ondansetron HCl (Zofran) 4 mg PRN Q6HRS PRN 07/25/19 07:00 07/26/19 06:59 DC Pantoprazole Sodium (PROTONIX VIAL for IV PUSH) 40 mg DAILYAC 07/04/19 11:30 07/27/19 08:30 40 MG Piperacillin Sod/ Tazobactam Sod 4.5 gm/Sodium Chloride 100 ml @ 200 mls/hr 1X ONCE 07/04/19 06:00 07/04/19 06:29 DC 07/04/19 05:44 200 MLS/HR Potassium Chloride 15 meq/ Bicarbonate Dialysis Soln w/ out KCl 5,007.5 ml @ 1,000 mls/ hr Q5H1M 07/17/19 20:00 07/21/19 13:08 DC 07/20/19 18:14 1,000 MLS/HR Potassium Chloride 20 meq/ Bicarbonate Dialysis Soln w/ out KCl 5,010 ml @ 1,000 mls/hr Q5H1M 07/13/19 16:00 07/17/19 19:59 DC 07/17/19 14:54 1,000 MLS/HR Potassium Chloride/Water 100 ml @ 100 mls/hr Q1H 07/12/19 11:00 07/12/19 12:59 DC 07/12/19 12:12 100 MLS/HR Potassium Phosphate 20 mmol/ Sodium Chloride 106.6667 ml @ 51.667 m... 1X ONCE 07/13/19 13:00 07/13/19 15:03 DC 07/13/19 12:51 51.667 MLS/HR Prochlorperazine Edisylate (Compazine) 5 mg PACU PRN PRN 07/25/19 07:00 07/26/19 06:59 DC Propofol 20 ml @ As Directed STK-MED ONCE 07/25/19 11:07 07/25/19 11:07 DC Ringer's Solution 1,000 ml @ 30 mls/hr Q24H 07/25/19 07:00 07/25/19 18:59 DC Sevoflurane (Ultane) 60 ml STK-MED ONCE 07/25/19 12:46 07/25/19 12:46 DC Sodium Bicarbonate 50 meq/Sodium Chloride 1,050 ml @ 75 mls/hr Q14H 07/06/19 07:30 07/11/19 10:28 DC 07/10/19 21:10 75 MLS/HR Sodium Chloride 1,000 ml @ 400 mls/hr Q2H30M PRN 07/28/19 07:58 4/9/20 19:57 Sodium Chloride (Normal Saline Flush) 10 ml 1X PRN PRN 07/22/19 07:30 07/23/19 07:29 DC Sodium Chloride 90 meq/Calcium Gluconate 10 meq/ Multivitamins 10 ml/Chromium/ Copper/Manganese/ Seleni/Zn 0.5 ml/ Total Parenteral Nutrition/Amino Acids/Dextrose/ Fat Emulsion Intravenous 1,512 ml @ 63 mls/hr TPN CONT 07/06/19 22:00 07/07/19 21:59 DC 07/06/19 22:06 63 MLS/HR Sodium Chloride 90 meq/Calcium Gluconate 10 meq/ Multivitamins 10 ml/Chromium/ Copper/Manganese/ Seleni/Zn 1 ml/ Total Parenteral Nutrition/Amino Acids/Dextrose/ Fat Emulsion Intravenous 55.005 ml @ 2.292 mls/hr TPN CONT 07/06/19 22:00 07/06/19 12:33 DC Sodium Chloride 90 meq/Magnesium Sulfate 10 meq/ Calcium Gluconate 20 meq/ Multivitamins 10 ml/Chromium/ Copper/Manganese/ Seleni/Zn 0.5 ml/ Total Parenteral Nutrition/Amino Acids/Dextrose/ Fat Emulsion Intravenous 1,512 ml @ 63 mls/hr TPN CONT 07/07/19 22:00 07/08/19 21:59 DC 07/07/19 22:25 63 MLS/HR Sodium Chloride 90 meq/Magnesium Sulfate 12 meq/ Calcium Gluconate 15 meq/ Multivitamins 10 ml/Chromium/ Copper/Manganese/ Seleni/Zn 0.5 ml/ Insulin Human Regular 25 unit/ Total Parenteral Nutrition/Amino Acids/Dextrose/ Fat Emulsion Intravenous 1,400 ml @ 58.333 mls/ hr TPN CONT 07/27/19 22:00 07/28/19 21:59 07/27/19 21:41 58.333 MLS/HR Sodium Chloride 90 meq/Potassium Chloride 15 meq/ Magnesium Sulfate 12 meq/Calcium Gluconate 15 meq/ Multivitamins 10 ml/Chromium/ Copper/Manganese/ Seleni/Zn 0.5 ml/ Insulin Human Regular 25 unit/ Total Parenteral Nutrition/Amino Acids/Dextrose/ Fat Emulsion Intravenous 1,400 ml @ 58.333 mls/ hr TPN CONT 07/26/19 22:00 07/27/19 21:59 DC 07/26/19 22:13 58.333 MLS/HR Sodium Chloride 90 meq/Potassium Chloride 15 meq/ Potassium Phosphate 10 mmol/ Magnesium Sulfate 8 meq/Calcium Gluconate 15 meq/ Multivitamins 10 ml/Chromium/ Copper/Manganese/ Seleni/Zn 0.5 ml/ Insulin Human Regular 25 unit/ Total Parenteral Nutrition/Amino Acids/Dextrose/ Fat Emulsion Intravenous 1,400 ml @ 58.333 mls/ hr TPN CONT 07/24/19 22:00 07/25/19 21:59 DC 07/24/19 21:20 58.333 MLS/HR Sodium Chloride 90 meq/Potassium Chloride 15 meq/ Potassium Phosphate 10 mmol/ Magnesium Sulfate 10 meq/Calcium Gluconate 20 meq/ Multivitamins 10 ml/Chromium/ Copper/Manganese/ Seleni/Zn 0.5 ml/ Total Parenteral Nutrition/Amino Acids/Dextrose/ Fat Emulsion Intravenous 1,400 ml @ 58.333 mls/ hr TPN CONT 07/11/19 22:00 07/12/19 21:59 DC 07/11/19 21:42 58.333 MLS/HR Sodium Chloride 90 meq/Potassium Chloride 15 meq/ Potassium Phosphate 10 mmol/ Magnesium Sulfate 12 meq/Calcium Gluconate 15 meq/ Multivitamins 10 ml/Chromium/ Copper/Manganese/ Seleni/Zn 0.5 ml/ Insulin Human Regular 25 unit/ Total Parenteral Nutrition/Amino Acids/Dextrose/ Fat Emulsion Intravenous 1,400 ml @ 58.333 mls/ hr TPN CONT 07/25/19 22:00 07/26/19 21:59 DC 07/25/19 22:24 58.333 MLS/HR Sodium Chloride 90 meq/Potassium Chloride 15 meq/ Potassium Phosphate 15 mmol/ Magnesium Sulfate 10 meq/Calcium Gluconate 15 meq/ Multivitamins 10 ml/Chromium/ Copper/Manganese/ Seleni/Zn 0.5 ml/ Total Parenteral Nutrition/Amino Acids/Dextrose/ Fat Emulsion Intravenous 1,400 ml @ 58.333 mls/ hr TPN CONT 07/12/19 22:00 07/13/19 21:59 DC 07/12/19 22:17 58.333 MLS/HR Sodium Chloride 90 meq/Potassium Chloride 15 meq/ Potassium Phosphate 15 mmol/ Magnesium Sulfate 10 meq/Calcium Gluconate 20 meq/ Multivitamins 10 ml/Chromium/ Copper/Manganese/ Seleni/Zn 0.5 ml/ Total Parenteral Nutrition/Amino Acids/Dextrose/ Fat Emulsion Intravenous 1,200 ml @ 50 mls/hr TPN CONT 07/10/19 22:00 07/10/19 14:17 DC Sodium Chloride 90 meq/Potassium Chloride 15 meq/ Potassium Phosphate 18 mmol/ Magnesium Sulfate 8 meq/Calcium Gluconate 15 meq/ Multivitamins 10 ml/Chromium/ Copper/Manganese/ Seleni/Zn 0.5 ml/ Insulin Human Regular 10 unit/ Total Parenteral Nutrition/Amino Acids/Dextrose/ Fat Emulsion Intravenous 1,400 ml @ 58.333 mls/ hr TPN CONT 07/15/19 22:00 07/16/19 21:59 DC 07/15/19 21:43 58.333 MLS/HR Sodium Chloride 90 meq/Potassium Chloride 15 meq/ Potassium Phosphate 18 mmol/ Magnesium Sulfate 8 meq/Calcium Gluconate 15 meq/ Multivitamins 10 ml/Chromium/ Copper/Manganese/ Seleni/Zn 0.5 ml/ Insulin Human Regular 15 unit/ Total Parenteral Nutrition/Amino Acids/Dextrose/ Fat Emulsion Intravenous 1,400 ml @ 58.333 mls/ hr TPN CONT 07/18/19 22:00 07/19/19 21:59 DC 07/18/19 21:47 58.333 MLS/HR Sodium Chloride 90 meq/Potassium Chloride 15 meq/ Potassium Phosphate 18 mmol/ Magnesium Sulfate 8 meq/Calcium Gluconate 15 meq/ Multivitamins 10 ml/Chromium/ Copper/Manganese/ Seleni/Zn 0.5 ml/ Insulin Human Regular 20 unit/ Total Parenteral Nutrition/Amino Acids/Dextrose/ Fat Emulsion Intravenous 1,400 ml @ 58.333 mls/ hr TPN CONT 07/21/19 22:00 07/22/19 21:59 DC 07/21/19 22:45 58.333 MLS/HR Sodium Chloride 90 meq/Potassium Chloride 15 meq/ Potassium Phosphate 18 mmol/ Magnesium Sulfate 8 meq/Calcium Gluconate 15 meq/ Multivitamins 10 ml/Chromium/ Copper/Manganese/ Seleni/Zn 0.5 ml/ Total Parenteral Nutrition/Amino Acids/Dextrose/ Fat Emulsion Intravenous 1,400 ml @ 58.333 mls/ hr TPN CONT 07/14/19 22:00 07/15/19 21:59 DC 07/14/19 22:00 58.333 MLS/HR Succinylcholine Chloride (Anectine) 120 mg 1X ONCE 07/11/19 08:30 07/11/19 08:31 DC 07/11/19 08:34 120 MG Labs: Lab Laboratory Tests Test 07/27/19 13:22 07/27/19 17:45 07/28/19 00:03 07/28/19 06:15 Glucose (Fingerstick) 153 mg/dL (70-99) 197 mg/dL (70-99) 206 mg/dL (70-99) 203 mg/dL (70-99) White Blood Count 12.0 x10^3/uL (4.0-11.0) Red Blood Count 2.30 x10^6/uL (3.50-5.40) Hemoglobin 7.4 g/dL (12.0-15.5) Hematocrit 22.9 % (36.0-47.0) Mean Corpuscular Volume 100 fL (79-100) Mean Corpuscular Hemoglobin 32 pg (25-35) Mean Corpuscular Hemoglobin Concent 32 g/dL (31-37) Red Cell Distribution Width 20.1 % (11.5-14.5) Platelet Count 328 x10^3/uL (140-400) Sodium Level 137 mmol/L (136-145) Potassium Level 3.7 mmol/L (3.5-5.1) Chloride Level 99 mmol/L (98-107) Carbon Dioxide Level 29 mmol/L (21-32) Anion Gap 9 (6-14) Blood Urea Nitrogen 51 mg/dL (7-20) Creatinine 2.2 mg/dL (0.6-1.0) Estimated GFR (Cockcroft-Gault) 23.7 Glucose Level 211 mg/dL (70-99) Calcium Level 8.7 mg/dL (8.5-10.1) Phosphorus Level 3.6 mg/dL (2.6-4.7) Magnesium Level 2.1 mg/dL (1.8-2.4) Albumin 2.6 g/dL (3.4-5.0) Triglycerides Level 436 mg/dL (0-150) Test 07/28/19 08:00 O2 Saturation 92 % (92-99) Arterial Blood pH 7.40 (7.35-7.45) Arterial Blood pCO2 at Patient Temp 45 mmHg (35-46) Arterial Blood pO2 at Patient Temp 69 mmHg (75-108) Arterial Blood HCO3 27 mmol/L (21-28) Arterial Blood Base Excess 2 mmol/L (-3-3) FiO2 35 Objective: Assessment: Acute pancreatitis with early necrosis Cholelithiasis Leucocytosis improving JUANA,Hyperkalemia, Metabolic acidosis on HD Acute hypoxic resp failure ,bilateral pleural effusion hypocalcemia Prediabetes HTN Plan: Plan of Care cont merrem 07/26 cont Daptomycin (07/12), cont micafungin was on cefepime and flagyl f/u cults Maintain aspiration precautions COVID-19 neg, 07/13 C diff negative 07/10 Lt IJ DC'd D/w nursing Critically ill YUNIOR JONES MD Jul 28, 2019 11:22
--- NOTE | 2019-07-28 12:08 | PDOC ---
SUBJECTIVE ROS sedated and intubated OBJECTIVE Vital Signs Vital Signs Date Time Temp Pulse Resp B/P (MAP) Pulse Ox O2 Delivery O2 Flow Rate FiO2 07/28/19 10:26 98 07/28/19 08:08 Ventilator 07/28/19 08:00 99.8 95 18 94/53 (67) 99.8 I & 0 Intake and Output 07/28/19 07:00 Intake Total 3304.78 ml Output Total 570 ml Balance 2734.78 ml IV Total 3304.78 ml Output Urine Total 220 ml Gastric Drainage Total 350 ml PHYSICAL EXAM Physical Exam GENERAL: On MV HEENT om moist NECK: Trach + LUNGS: Diminished aeration bases HEART: S1, S2, regular ABDOMEN: Distended, hypoactive BS, Rectal tube in place : Lind EXTREMITIES: Generalized edema, some mottling DERMATOLOGIC: No generalized rash. CENTRAL NERVOUS SYSTEM: Sedated RIJ Temp HDC DIAGNOSIS/ASSESSMENT Assessment & Plan ARF-- ATN, Off CRRT Seen on HD, treatment plan discussed and reviewed with Boy TTS SCHEDULE ,No Renal recovery yet , Monitor Anemia- per primary Currently on HIRAM Anasarca due to 3rd spacing Hyperkalemia- resolved AC Pancreatitis, early developing necrosis No intervention per GS Cholelithiasis Acute hypoxic resp failure ,bilateral pleural effusion On MV hypocalcemia - stable HTN- Hypotensive , pressors as indicated COVID-19 neg, 07/13 COMMENT/RELEVANT DATA Meds Current Medications Medications (Trade) Dose Ordered Sig/Yvon Start Time Stop Time Status Last Admin Dose Admin Acetaminophen (Tylenol Supp) 650 mg PRN Q6HRS PRN 07/12/19 10:30 07/12/19 10:37 650 MG Acetaminophen (Tylenol) 650 mg PRN Q6HRS PRN 07/09/19 03:36 07/14/19 07:35 650 MG Albumin Human 200 ml @ 200 mls/hr 1X PRN PRN 07/28/19 08:00 07/28/19 13:59 07/28/19 09:30 200 MLS/HR Albuterol Sulfate (Ventolin Neb Soln) 2.5 mg 1X ONCE 07/05/19 22:30 07/05/19 22:31 DC 07/06/19 00:56 2.5 MG Alteplase, Recombinant (Cathflo For Central Catheter Clearance) 1 mg 1X ONCE 07/19/19 22:00 07/19/19 22:01 DC 07/19/19 22:05 1 MG Artificial Tears (Artificial Tears) 1 drop PRN Q1HR PRN 07/11/19 08:15 Atenolol (Tenormin) 100 mg DAILY 07/05/19 09:00 07/04/19 20:08 DC Atropine Sulfate (ATROPINE 0.5mg SYRINGE) 0.5 mg PRN Q5MIN PRN 07/21/19 08:15 Benzocaine (Hurricaine One) 1 spray 1X ONCE 07/08/19 14:30 07/08/19 14:31 DC 07/08/19 16:38 1 SPRAY Bupivacaine HCl/ Epinephrine Bitart (Sensorcain-Epi 0.5%-1:391190 Mpf) 30 ml STK-MED ONCE 07/25/19 11:00 07/25/19 11:01 DC 07/25/19 11:44 1 ML Calcium Carbonate/ Glycine (Tums) 500 mg PRN AFTMEALHC PRN 07/06/19 17:45 Calcium Chloride 1000 mg/Sodium Chloride 110 ml @ 220 mls/hr 1X ONCE 07/05/19 22:30 07/05/19 22:59 DC 07/05/19 22:11 220 MLS/HR Calcium Chloride 3000 mg/Sodium Chloride 1,030 ml @ 50 mls/hr [id number] 07/07/19 08:00 07/09/19 15:23 DC 07/09/19 02:17 50 MLS/HR Calcium Gluconate (Calcium Gluconate) 2,000 mg 1X ONCE 07/07/19 02:15 07/07/19 02:16 DC 07/07/19 02:19 2,000 MG Calcium Gluconate 1000 mg/Sodium Chloride 110 ml @ 220 mls/hr 1X ONCE 07/06/19 03:30 07/06/19 03:59 DC 07/06/19 03:21 220 MLS/HR Calcium Gluconate 2000 mg/Sodium Chloride 120 ml @ 220 mls/hr 1X ONCE 07/06/19 07:30 07/06/19 08:02 DC 07/06/19 09:05 220 MLS/HR Cefepime HCl (Maxipime) 2 gm Q12HR 07/13/19 09:00 07/27/19 09:58 DC 07/26/19 20:56 2 GM Cellulose (Surgicel Fibrillar 1x2) 1 each STK-MED ONCE 07/25/19 11:00 07/25/19 11:01 DC Cellulose (Surgicel Hemostat 4x8) 1 each STK-MED ONCE 07/25/19 11:55 07/25/19 11:56 DC 07/25/19 11:44 1 EACH Daptomycin 500 mg/ Sodium Chloride 50 ml @ 100 mls/hr Q48H 07/13/19 08:30 07/27/19 14:02 100 MLS/HR Dexmedetomidine HCl 400 mcg/ Sodium Chloride 100 ml @ 0 mls/hr CONT PRN 07/21/19 08:15 07/28/19 10:00 27.8 MLS/HR Dextrose (Dextrose 50%-Water Syringe) 12.5 gm PRN Q15MIN PRN 07/04/19 09:30 Digoxin (Lanoxin) 125 mcg 1X ONCE 07/07/19 18:00 07/07/19 18:01 DC 07/07/19 17:10 125 MCG Diphenhydramine HCl (Benadryl) 25 mg 1X PRN PRN 07/27/19 08:00 07/28/19 07:59 DC Etomidate (Amidate) 8 mg 1X ONCE 07/11/19 08:30 07/11/19 08:31 DC 07/11/19 08:33 8 MG Fentanyl Citrate (Fentanyl 2ml Vial) 50 mcg PRN Q5MIN PRN 07/25/19 07:00 07/26/19 06:59 DC Furosemide (Lasix) 20 mg 1X ONCE 07/21/19 08:15 07/21/19 08:16 DC 07/21/19 08:19 20 MG Heparin Sodium (Porcine) (Hep Lock Adult) 500 unit STK-MED ONCE 07/26/19 09:29 07/26/19 09:30 DC Heparin Sodium (Porcine) (Heparin Sodium) 5,000 unit Q12HR 07/22/19 21:00 07/27/19 20:59 5,000 UNIT Hydromorphone HCl (Dilaudid) 1 mg PRN Q3HRS PRN 07/05/19 12:00 07/19/19 00:25 DC 07/11/19 05:13 1 MG Info (CONTRAST GIVEN -- Rx MONITORING) 1 each PRN DAILY PRN 07/18/19 11:45 07/20/19 11:44 DC Info (Icu Electrolyte Protocol) 1 ea CONT PRN PRN 07/17/19 13:15 Info (PHARMACY MONITORING -- do not chart) 1 each PRN DAILY PRN 07/28/19 08:15 UNV Info (Tpn Per Pharmacy) 1 each PRN DAILY PRN 07/06/19 12:30 UNV Insulin Human Lispro (HumaLOG) 0-9 UNITS Q6HRS 07/04/19 09:30 07/28/19 06:25 5 UNITS Insulin Human Regular (HumuLIN R VIAL) 5 unit 1X ONCE 07/05/19 22:30 07/05/19 22:31 DC 07/05/19 22:14 5 UNIT Iohexol (Omnipaque 240 Mg/ml) 30 ml 1X ONCE 07/18/19 11:30 07/18/19 11:33 DC 07/18/19 11:30 30 ML Iohexol (Omnipaque 300 Mg/ml) 60 ml 1X ONCE 07/05/19 17:00 07/05/19 17:01 DC 07/05/19 17:20 60 ML Iohexol (Omnipaque 350 Mg/ml) 90 ml 1X ONCE 07/04/19 03:30 07/04/19 03:31 DC 07/04/19 03:25 90 ML Ketorolac Tromethamine (Toradol 30mg Vial) 30 mg 1X ONCE 07/04/19 03:00 07/04/19 03:01 DC 07/04/19 02:54 30 MG Lidocaine HCl (Buffered Lidocaine 1%) 6 ml 1X ONCE 07/21/19 09:00 07/21/19 09:06 DC 07/21/19 09:05 6 ML Lidocaine HCl (Glydo (Lidocaine) Jelly) 1 ramu 1X ONCE 07/08/19 14:30 07/08/19 14:31 DC 07/08/19 16:38 1 RAMU Lidocaine HCl (Xylocaine-Mpf 1% 2ml Vial) 2 ml PRN 1X PRN 07/25/19 07:00 07/26/19 06:59 DC Linezolid/Dextrose 300 ml @ 300 mls/hr Q12HR 07/08/19 20:00 07/15/19 07:50 DC 07/14/19 21:04 300 MLS/HR Lorazepam (Ativan Inj) 1 mg PRN Q4HRS PRN 07/07/19 09:00 07/11/19 00:34 1 MG Magnesium Sulfate 50 ml @ 25 mls/hr PRN DAILY PRN 07/24/19 09:15 Meropenem 1 gm/ Sodium Chloride 100 ml @ 200 mls/hr Q8HRS 07/05/19 20:00 07/06/19 08:48 DC 07/06/19 05:45 200 MLS/HR Meropenem 500 mg/ Sodium Chloride 50 ml @ 100 mls/hr Q12H 07/27/19 10:00 07/27/19 21:51 100 MLS/HR Metoprolol Tartrate (Lopressor Vial) 5 mg Q6HRS 07/05/19 10:15 07/16/19 08:48 DC 07/14/19 00:12 5 MG Metronidazole 100 ml @ 100 mls/hr Q6HRS 07/11/19 08:30 07/27/19 09:58 DC 07/27/19 06:26 100 MLS/HR Micafungin Sodium 100 mg/Dextrose 100 ml @ 100 mls/hr Q24H 07/11/19 09:00 07/27/19 14:28 100 MLS/HR Midazolam HCl (Versed) 5 mg 1X ONCE 07/11/19 08:30 07/11/19 08:31 DC Midazolam HCl 100 mg/Sodium Chloride 100 ml @ 7 mls/hr CONT PRN 07/16/19 16:00 07/27/19 15:35 7 MLS/HR Midazolam HCl 50 mg/Sodium Chloride 50 ml @ 0 mls/hr CONT PRN 07/11/19 08:15 07/16/19 15:59 DC 07/14/19 22:39 7 MLS/HR Morphine Sulfate (Morphine Sulfate) 2 mg PRN Q2HR PRN 07/04/19 05:00 07/05/19 14:15 DC 07/05/19 12:26 2 MG Multi-Ingred Cream/Lotion/Oil/ Oint (Artificial Tears Eye Ointment) 1 ramu PRN Q1HR PRN 07/13/19 17:30 07/22/19 11:05 1 RAMU Norepinephrine Bitartrate 8 mg/ Dextrose 258 ml @ 17.299 mls/ hr CONT PRN 07/05/19 15:30 07/27/19 13:45 20.5 MLS/HR Ondansetron HCl (Zofran) 4 mg PRN Q6HRS PRN 07/25/19 07:00 07/26/19 06:59 DC Pantoprazole Sodium (PROTONIX VIAL for IV PUSH) 40 mg DAILYAC 07/04/19 11:30 07/27/19 08:30 40 MG Piperacillin Sod/ Tazobactam Sod 4.5 gm/Sodium Chloride 100 ml @ 200 mls/hr 1X ONCE 07/04/19 06:00 07/04/19 06:29 DC 07/04/19 05:44 200 MLS/HR Potassium Chloride 15 meq/ Bicarbonate Dialysis Soln w/ out KCl 5,007.5 ml @ 1,000 mls/ hr Q5H1M 07/17/19 20:00 07/21/19 13:08 DC 07/20/19 18:14 1,000 MLS/HR Potassium Chloride 20 meq/ Bicarbonate Dialysis Soln w/ out KCl 5,010 ml @ 1,000 mls/hr Q5H1M 07/13/19 16:00 07/17/19 19:59 DC 07/17/19 14:54 1,000 MLS/HR Potassium Chloride/Water 100 ml @ 100 mls/hr Q1H 07/12/19 11:00 07/12/19 12:59 DC 07/12/19 12:12 100 MLS/HR Potassium Phosphate 20 mmol/ Sodium Chloride 106.6667 ml @ 51.667 m... 1X ONCE 07/13/19 13:00 07/13/19 15:03 DC 07/13/19 12:51 51.667 MLS/HR Prochlorperazine Edisylate (Compazine) 5 mg PACU PRN PRN 07/25/19 07:00 07/26/19 06:59 DC Propofol 20 ml @ As Directed STK-MED ONCE 07/25/19 11:07 07/25/19 11:07 DC Ringer's Solution 1,000 ml @ 30 mls/hr Q24H 07/25/19 07:00 07/25/19 18:59 DC Sevoflurane (Ultane) 60 ml STK-MED ONCE 07/25/19 12:46 07/25/19 12:46 DC Sodium Bicarbonate 50 meq/Sodium Chloride 1,050 ml @ 75 mls/hr Q14H 07/06/19 07:30 07/11/19 10:28 DC 07/10/19 21:10 75 MLS/HR Sodium Chloride 1,000 ml @ 400 mls/hr Q2H30M PRN 07/28/19 07:58 07/28/19 19:57 Sodium Chloride (Normal Saline Flush) 10 ml 1X PRN PRN 07/22/19 07:30 07/23/19 07:29 DC Sodium Chloride 90 meq/Calcium Gluconate 10 meq/ Multivitamins 10 ml/Chromium/ Copper/Manganese/ Seleni/Zn 0.5 ml/ Total Parenteral Nutrition/Amino Acids/Dextrose/ Fat Emulsion Intravenous 1,512 ml @ 63 mls/hr TPN CONT 07/06/19 22:00 07/07/19 21:59 DC 07/06/19 22:06 63 MLS/HR Sodium Chloride 90 meq/Calcium Gluconate 10 meq/ Multivitamins 10 ml/Chromium/ Copper/Manganese/ Seleni/Zn 1 ml/ Total Parenteral Nutrition/Amino Acids/Dextrose/ Fat Emulsion Intravenous 55.005 ml @ 2.292 mls/hr TPN CONT 07/06/19 22:00 07/06/19 12:33 DC Sodium Chloride 90 meq/Magnesium Sulfate 10 meq/ Calcium Gluconate 20 meq/ Multivitamins 10 ml/Chromium/ Copper/Manganese/ Seleni/Zn 0.5 ml/ Total Parenteral Nutrition/Amino Acids/Dextrose/ Fat Emulsion Intravenous 1,512 ml @ 63 mls/hr TPN CONT 07/07/19 22:00 07/08/19 21:59 DC 07/07/19 22:25 63 MLS/HR Sodium Chloride 90 meq/Magnesium Sulfate 12 meq/ Calcium Gluconate 15 meq/ Multivitamins 10 ml/Chromium/ Copper/Manganese/ Seleni/Zn 0.5 ml/ Insulin Human Regular 25 unit/ Total Parenteral Nutrition/Amino Acids/Dextrose/ Fat Emulsion Intravenous 1,400 ml @ 58.333 mls/ hr TPN CONT 07/27/19 22:00 07/28/19 21:59 07/27/19 21:41 58.333 MLS/HR Sodium Chloride 90 meq/Potassium Chloride 15 meq/ Magnesium Sulfate 12 meq/Calcium Gluconate 15 meq/ Multivitamins 10 ml/Chromium/ Copper/Manganese/ Seleni/Zn 0.5 ml/ Insulin Human Regular 25 unit/ Total Parenteral Nutrition/Amino Acids/Dextrose/ Fat Emulsion Intravenous 1,400 ml @ 58.333 mls/ hr TPN CONT 07/26/19 22:00 07/27/19 21:59 DC 07/26/19 22:13 58.333 MLS/HR Sodium Chloride 90 meq/Potassium Chloride 15 meq/ Potassium Phosphate 10 mmol/ Magnesium Sulfate 8 meq/Calcium Gluconate 15 meq/ Multivitamins 10 ml/Chromium/ Copper/Manganese/ Seleni/Zn 0.5 ml/ Insulin Human Regular 25 unit/ Total Parenteral Nutrition/Amino Acids/Dextrose/ Fat Emulsion Intravenous 1,400 ml @ 58.333 mls/ hr TPN CONT 07/24/19 22:00 07/25/19 21:59 DC 07/24/19 21:20 58.333 MLS/HR Sodium Chloride 90 meq/Potassium Chloride 15 meq/ Potassium Phosphate 10 mmol/ Magnesium Sulfate 10 meq/Calcium Gluconate 20 meq/ Multivitamins 10 ml/Chromium/ Copper/Manganese/ Seleni/Zn 0.5 ml/ Total Parenteral Nutrition/Amino Acids/Dextrose/ Fat Emulsion Intravenous 1,400 ml @ 58.333 mls/ hr TPN CONT 07/11/19 22:00 07/12/19 21:59 DC 07/11/19 21:42 58.333 MLS/HR Sodium Chloride 90 meq/Potassium Chloride 15 meq/ Potassium Phosphate 10 mmol/ Magnesium Sulfate 12 meq/Calcium Gluconate 15 meq/ Multivitamins 10 ml/Chromium/ Copper/Manganese/ Seleni/Zn 0.5 ml/ Insulin Human Regular 25 unit/ Total Parenteral Nutrition/Amino Acids/Dextrose/ Fat Emulsion Intravenous 1,400 ml @ 58.333 mls/ hr TPN CONT 07/25/19 22:00 07/26/19 21:59 DC 07/25/19 22:24 58.333 MLS/HR Sodium Chloride 90 meq/Potassium Chloride 15 meq/ Potassium Phosphate 15 mmol/ Magnesium Sulfate 10 meq/Calcium Gluconate 15 meq/ Multivitamins 10 ml/Chromium/ Copper/Manganese/ Seleni/Zn 0.5 ml/ Total Parenteral Nutrition/Amino Acids/Dextrose/ Fat Emulsion Intravenous 1,400 ml @ 58.333 mls/ hr TPN CONT 07/12/19 22:00 07/13/19 21:59 DC 07/12/19 22:17 58.333 MLS/HR Sodium Chloride 90 meq/Potassium Chloride 15 meq/ Potassium Phosphate 15 mmol/ Magnesium Sulfate 10 meq/Calcium Gluconate 20 meq/ Multivitamins 10 ml/Chromium/ Copper/Manganese/ Seleni/Zn 0.5 ml/ Total Parenteral Nutrition/Amino Acids/Dextrose/ Fat Emulsion Intravenous 1,200 ml @ 50 mls/hr TPN CONT 07/10/19 22:00 07/10/19 14:17 DC Sodium Chloride 90 meq/Potassium Chloride 15 meq/ Potassium Phosphate 18 mmol/ Magnesium Sulfate 8 meq/Calcium Gluconate 15 meq/ Multivitamins 10 ml/Chromium/ Copper/Manganese/ Seleni/Zn 0.5 ml/ Insulin Human Regular 10 unit/ Total Parenteral Nutrition/Amino Acids/Dextrose/ Fat Emulsion Intravenous 1,400 ml @ 58.333 mls/ hr TPN CONT 07/15/19 22:00 07/16/19 21:59 DC 07/15/19 21:43 58.333 MLS/HR Sodium Chloride 90 meq/Potassium Chloride 15 meq/ Potassium Phosphate 18 mmol/ Magnesium Sulfate 8 meq/Calcium Gluconate 15 meq/ Multivitamins 10 ml/Chromium/ Copper/Manganese/ Seleni/Zn 0.5 ml/ Insulin Human Regular 15 unit/ Total Parenteral Nutrition/Amino Acids/Dextrose/ Fat Emulsion Intravenous 1,400 ml @ 58.333 mls/ hr TPN CONT 07/18/19 22:00 07/19/19 21:59 DC 07/18/19 21:47 58.333 MLS/HR Sodium Chloride 90 meq/Potassium Chloride 15 meq/ Potassium Phosphate 18 mmol/ Magnesium Sulfate 8 meq/Calcium Gluconate 15 meq/ Multivitamins 10 ml/Chromium/ Copper/Manganese/ Seleni/Zn 0.5 ml/ Insulin Human Regular 20 unit/ Total Parenteral Nutrition/Amino Acids/Dextrose/ Fat Emulsion Intravenous 1,400 ml @ 58.333 mls/ hr TPN CONT 07/21/19 22:00 07/22/19 21:59 DC 07/21/19 22:45 58.333 MLS/HR Sodium Chloride 90 meq/Potassium Chloride 15 meq/ Potassium Phosphate 18 mmol/ Magnesium Sulfate 8 meq/Calcium Gluconate 15 meq/ Multivitamins 10 ml/Chromium/ Copper/Manganese/ Seleni/Zn 0.5 ml/ Total Parenteral Nutrition/Amino Acids/Dextrose/ Fat Emulsion Intravenous 1,400 ml @ 58.333 mls/ hr TPN CONT 07/14/19 22:00 07/15/19 21:59 DC 07/14/19 22:00 58.333 MLS/HR Succinylcholine Chloride (Anectine) 120 mg 1X ONCE 07/11/19 08:30 07/11/19 08:31 DC 07/11/19 08:34 120 MG Lab Laboratory Tests Test 07/27/19 13:22 07/27/19 17:45 07/28/19 00:03 07/28/19 06:15 Glucose (Fingerstick) 153 mg/dL (70-99) 197 mg/dL (70-99) 206 mg/dL (70-99) 203 mg/dL (70-99) White Blood Count 12.0 x10^3/uL (4.0-11.0) Red Blood Count 2.30 x10^6/uL (3.50-5.40) Hemoglobin 7.4 g/dL (12.0-15.5) Hematocrit 22.9 % (36.0-47.0) Mean Corpuscular Volume 100 fL (79-100) Mean Corpuscular Hemoglobin 32 pg (25-35) Mean Corpuscular Hemoglobin Concent 32 g/dL (31-37) Red Cell Distribution Width 20.1 % (11.5-14.5) Platelet Count 328 x10^3/uL (140-400) Sodium Level 137 mmol/L (136-145) Potassium Level 3.7 mmol/L (3.5-5.1) Chloride Level 99 mmol/L (98-107) Carbon Dioxide Level 29 mmol/L (21-32) Anion Gap 9 (6-14) Blood Urea Nitrogen 51 mg/dL (7-20) Creatinine 2.2 mg/dL (0.6-1.0) Estimated GFR (Cockcroft-Gault) 23.7 Glucose Level 211 mg/dL (70-99) Calcium Level 8.7 mg/dL (8.5-10.1) Phosphorus Level 3.6 mg/dL (2.6-4.7) Magnesium Level 2.1 mg/dL (1.8-2.4) Albumin 2.6 g/dL (3.4-5.0) Triglycerides Level 436 mg/dL (0-150) Test 07/28/19 08:00 O2 Saturation 92 % (92-99) Arterial Blood pH 7.40 (7.35-7.45) Arterial Blood pCO2 at Patient Temp 45 mmHg (35-46) Arterial Blood pO2 at Patient Temp 69 mmHg (75-108) Arterial Blood HCO3 27 mmol/L (21-28) Arterial Blood Base Excess 2 mmol/L (-3-3) FiO2 35 Results All relevant outside records, renal labs, imaging studies, telemetry/EKG's were reviewed. VERENA KENT MD Jul 28, 2019 12:08
--- NOTE | 2019-07-28 12:28 | PDOC ---
PROGRESS NOTES Assessment Assessment Respiratory failure. Seizure. Metabolic encephalopathy. Fever 102.7 degree, recurrent fever 100.6 degree on 07/27/19. Metabolic acidosis. Diffuse pulmonary infiltrate. Pleural effusion. Pancreatitis Gallstone. Leukocytosis. Lymphopenia. Electrolytes imbalances. Hyperglycemia. DM. HTN. HLD. Anemia. Abnormal CXR. Obesity. Covid-19 still suspected. RECOMMENDATIONS/PLAN: Continue life support in CCU at the present time. Keppra if has further seizures. Treat medical diseases. Suggested repeat Covid-19 lab test. OT/PT. EEG: No seizure activity. OBJECTIVE: Fever 100.6 degree before and now T 99.8 degree.. 07/28/19: No seizures reported over night. Past Medical History Cardiovascular: HTN, Hyperlipidemia Endocrine: Diabetes Family History Unobtainable. Social HistoryU not obtainable Allergies Coded Allergies: Codeine (Verified Allergy, Intermediate, rash, 07/04/19) ROS Unobtainable. NEUROLOGICAL EXAMINATION: Decreased responsiveness. Not oriented to time, place and person. PERRL. EOMI not active. CN: no acute focal findings. No focalized findings per reports. Patient went to dialysis. Objective Objective Vital Signs Date Time Temp Pulse Resp B/P (MAP) Pulse Ox O2 Delivery O2 Flow Rate FiO2 07/28/19 12:09 100 Ventilator 07/28/19 08:00 99.8 95 18 94/53 (67) 99.8 Intake and Output 07/28/19 07:00 Intake Total 3304.78 ml Output Total 570 ml Balance 2734.78 ml IV Total 3304.78 ml Output Urine Total 220 ml Gastric Drainage Total 350 ml Vitals Signs Vitals VS - Last 72 Hours, by Label Date Time Temp Pulse Resp B/P (MAP) Pulse Ox O2 Delivery O2 Flow Rate FiO2 07/28/19 12:09 100 Ventilator 07/28/19 10:26 98 07/28/19 08:08 98 Ventilator 07/28/19 08:00 99.8 95 18 94/53 (67) 97 Ventilator 99.8 07/28/19 08:00 Mechanical Ventilator 07/28/19 07:00 96 18 108/59 (75) 98 Ventilator 07/28/19 06:00 90 18 100/54 (69) 98 Ventilator 07/28/19 05:00 97 18 99/57 (71) 97 Ventilator 07/28/19 04:00 96 Ventilator 07/28/19 04:00 Mechanical Ventilator 07/28/19 04:00 98.8 100 18 105/71 (82) 96 Ventilator 98.8 07/28/19 03:00 100 18 113/68 (83) 97 Ventilator 07/28/19 02:00 102 19 117/66 (83) 96 Ventilator 07/28/19 01:00 101 18 123/70 (87) 97 Ventilator 07/28/19 00:00 99.8 101 18 111/65 (80) 96 Ventilator 99.8 07/28/19 00:00 Mechanical Ventilator 07/27/19 23:15 96 Ventilator 07/27/19 23:00 98 18 104/67 (79) 95 Ventilator 07/27/19 22:00 97 18 104/70 (81) 96 Ventilator 07/27/19 21:00 96 18 113/65 (81) 97 Ventilator 07/27/19 20:10 95 Ventilator 07/27/19 20:00 Mechanical Ventilator 07/27/19 20:00 98.3 98 18 94/50 (65) 95 Ventilator 98.3 07/27/19 19:00 98 18 102/49 (66) 95 Ventilator 07/27/19 18:00 102 18 106/63 (77) 97 Ventilator 07/27/19 17:00 101 18 83/48 (60) 98 Ventilator 07/27/19 16:00 Mechanical Ventilator 07/27/19 16:00 99.0 96 18 93/55 (68) 97 Ventilator 99.0 07/27/19 15:53 97 Ventilator 07/27/19 15:45 96 98/56 (70) 07/27/19 15:30 96 18 97/55 (69) 98 Ventilator 07/27/19 15:00 101 18 122/68 (86) 98 Ventilator 07/27/19 14:30 108 18 132/87 (102) 98 Ventilator 07/27/19 14:15 108 18 120/72 (88) 98 Ventilator 07/27/19 14:01 18 98 Ventilator 07/27/19 14:00 108 18 94/55 (68) 98 Ventilator 07/27/19 13:45 108 18 114/66 (82) 98 Ventilator 07/27/19 13:30 100 18 204/110 (141) 98 Ventilator 07/27/19 13:29 18 99 Ventilator 07/27/19 13:15 112 199/93 (128) 07/27/19 13:00 100.8 102 18 137/87 (104) 99 Ventilator 100.8 07/27/19 12:00 Mechanical Ventilator 07/27/19 11:54 100 Ventilator 07/27/19 08:00 99 Ventilator 07/27/19 08:00 Mechanical Ventilator 07/27/19 08:00 100.6 106 18 116/62 (80) 98 Ventilator 100.6 07/27/19 07:00 104 18 112/62 (79) 99 Ventilator Laboratory Laboratory Laboratory Tests Test 07/27/19 13:22 07/27/19 17:45 07/28/19 00:03 07/28/19 06:15 Glucose (Fingerstick) 153 mg/dL (70-99) 197 mg/dL (70-99) 206 mg/dL (70-99) 203 mg/dL (70-99) White Blood Count 12.0 x10^3/uL (4.0-11.0) Red Blood Count 2.30 x10^6/uL (3.50-5.40) Hemoglobin 7.4 g/dL (12.0-15.5) Hematocrit 22.9 % (36.0-47.0) Mean Corpuscular Volume 100 fL (79-100) Mean Corpuscular Hemoglobin 32 pg (25-35) Mean Corpuscular Hemoglobin Concent 32 g/dL (31-37) Red Cell Distribution Width 20.1 % (11.5-14.5) Platelet Count 328 x10^3/uL (140-400) Sodium Level 137 mmol/L (136-145) Potassium Level 3.7 mmol/L (3.5-5.1) Chloride Level 99 mmol/L (98-107) Carbon Dioxide Level 29 mmol/L (21-32) Anion Gap 9 (6-14) Blood Urea Nitrogen 51 mg/dL (7-20) Creatinine 2.2 mg/dL (0.6-1.0) Estimated GFR (Cockcroft-Gault) 23.7 Glucose Level 211 mg/dL (70-99) Calcium Level 8.7 mg/dL (8.5-10.1) Phosphorus Level 3.6 mg/dL (2.6-4.7) Magnesium Level 2.1 mg/dL (1.8-2.4) Albumin 2.6 g/dL (3.4-5.0) Triglycerides Level 436 mg/dL (0-150) Test 07/28/19 08:00 O2 Saturation 92 % (92-99) Arterial Blood pH 7.40 (7.35-7.45) Arterial Blood pCO2 at Patient Temp 45 mmHg (35-46) Arterial Blood pO2 at Patient Temp 69 mmHg (75-108) Arterial Blood HCO3 27 mmol/L (21-28) Arterial Blood Base Excess 2 mmol/L (-3-3) FiO2 35 Microbiology 07/24/19 Blood Culture - Preliminary, Resulted NO GROWTH AFTER 4 DAYS 07/23/19 Urine Culture - Final, Complete 07/23/19 Urine Culture Result 1 (ALEXANDRA) - Final, Complete Medication Medications Current Medications Albumin Human 200 ml @ 200 mls/hr 1X PRN PRN IV Hypotension Last administered on 07/28/19at 09:30; Start 07/28/19 at 08:00; Stop 07/28/19 at 13:59 Info (PHARMACY MONITORING -- do not chart) 1 each PRN DAILY PRN MC SEE COMMENTS; Start 07/28/19 at 08:00 Info (PHARMACY MONITORING -- do not chart) 1 each PRN DAILY PRN MC SEE COMMENTS; Start 07/28/19 at 08:15; Status UNV Sodium Chloride 1,000 ml @ 400 mls/hr Q2H30M PRN IV PATENCY; Start 07/28/19 at 0 7:58; Stop 07/28/19 at 19:57 Sodium Chloride 1,000 ml @ 1,000 mls/hr Q1H PRN IV hypotension; Start 07/28/19 at 07:58; Stop 07/28/19 at 13:57 Sodium Chloride 90 meq/Magnesium Sulfate 12 meq/ Calcium Gluconate 15 meq/ Multivitamins 10 ml/Chromium/ Copper/Manganese/ Seleni/Zn 0.5 ml/ Insulin Human Regular 25 unit/ Total Parenteral Nutrition/Amino Acids/Dextrose/ Fat Emulsion Intravenous 1,400 ml @ 58.333 mls/ hr TPN CONT IV Last administered on 07/27/19at 21:41; Start 07/27/19 at 22:00; Stop 07/28/19 at 21:59 Comment Review of Relevant I have reviewed the following items kolby (where applicable) has been applied. ZANDER ZUÑIGA MD Jul 28, 2019 12:28
--- NOTE | 2019-07-28 12:37 | NUR ---
SS following up with discharge planning. SS discussed with RN. Pt remains on the vent at this time. Trach placed on 07/25/2019. Pt on TPN and IV abx. Pt's daughters attempting to attain court order to gain access to pt's finances for Medicaid application. SS will continue to follow for discharge planning.
[2019-07-28] MEDS: NOREPINEPHRINE VIAL 8 MG in IV DEXTROSE 5% 250 ML IV PRN (12:39)
[2019-07-28] MEDS: TPN PER PHARMACY MC PRN (12:53)
--- NOTE | 2019-07-28 12:58 | NUR ---
Pharmacy TPN Dosing Note S: SCOTT AVILA is a 48 year old F Currently receiving Central Continuous TPN started 07/06/19 B:Pertinent PMH: Necrotizing pancreatitis Height: 5 feet, 8 inches Weight: 105 kg Current diet: NPO LABS: Sodium: 137 Potassium: 3.7 Chloride: 99 Calcium: 8.7 Corrected Calcium: 9.82 Magnesium: 2.1 CO2: 29 SCr: 2.2 Glucose: 197-211 Albumin: 2.6 AST: 47 ALT: 20 TPN FORMULA: TPN TYPE: Central Continuous AMINO ACIDS: 125 gm DEXTROSE: 195 gm LIPIDS: 20 gm SODIUM CHLORIDE: 90 mEq POTASSIUM PHOSPHATE: 5 mmol MAGNESIUM: 12 mEq CALCIUM: 15 mEq INSULIN: 30 units MULTIPLE VITAMIN: 10 ml TRACE ELEMENTS: 0.5 ml(s) TPN PLAN: Triglycerides >400 - lipid content reduced to 20g/bag 5mmol Kphos added to TPN and insulin increased to 30 units/bag. R: Change TPN per plan and ordered formula Will monitor electrolytes, glucose, and tolerance to TPN. Raeann Mcdonnell [facility], 07/28/19 [id number]
--- NOTE | 2019-07-28 14:49 | RAD ---
CT abdomen pelvis without contrast. HISTORY: Follow-up necrotizing pancreatitis. CT scan of the abdomen and pelvis was done without contrast. Comparison is made with a study from July 17. There are moderate bilateral effusions. There is atelectasis in both lung bases. There is right middle lobe atelectasis. There are gallstones in the gallbladder. There is a cyst in the liver. No other liver lesion is noted. Spleen is normal. There is an NG tube in the stomach. There is necrotizing pancreatitis with the fluid and phlegmon at the pancreas. There is increased ascites in the abdomen and pelvis. There is no bowel obstruction. There is edema in the abdominal wall. There is mildly dilated collecting system of the right kidney. The ureters not definitely dilated. The NG tube extends into the duodenum. IMPRESSION: 1. Increased ascites. 2. 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 Cholelithiasis with thickening of the gallbladder wall. 4. Persistent pleural effusions and atelectasis in the lung bases. PQRS Compliance Statement: One or more of the following individualized dose reduction techniques were utilized for this examination: 1. Automated exposure control 2. Adjustment of the mA and/or kV according to patient size 3. Use of iterative reconstruction technique Electronically signed by: Abe Mathias MD (07/28/2019 2:46 PM) [id number]
[2019-07-28] MEDS: MEROPENEM 500 MG in IV NORMAL SALINE 50ML 50 ML IV SCH ×2 (14:51→22:12)
[2019-07-28] MEDS: PANTOPRAZOLE IV PUSH 40 MG VIAL. IVP SCH (14:51)
[2019-07-28] MEDS: MICAFUNGIN 100 MG in IV DEXTROSE 5% 100ML 100 ML IV SCH (14:51)
[2019-07-28] MEDS: HEPARIN for SUB-Q USE 5,000 UNIT/ML VIAL. SQ SCH ×2 (14:56→20:55)
--- NOTE | 2019-07-28 16:45 | PDOC ---
PROGRESS NOTES Chief Complaint Chief Complaint Respiratory failure requiring mechanical ventilation bilateral pleural effusions/pulm edema Sepsis Severe Acute gallstone pancreatitis (not a surgical candidate at this time) with necrosis Acute kidney failure now requiring dialysis Salpingitis Gallstones (Calculus of gallbladder with acute cholecystitis without obstruction) HTN Leukocytosis Hypoxia Uterine fibroid Intractable pain Intractable nausea Covid 19 negative. Acute on chronic anemia EEG: No seizure activity. Plan: continue supportive measures dialysis today continue meropenam, dapto, capsofungin follow cultures continue levophed support as needed seizures, neuro following awaiting for placement, she will probably will need to transition to LTAC History of Present Illness History of Present Illness 07/28/19: patient seen in ICU tolerating dialysis. sedated on vent. no acute issues overnight. no fever today. 07/26/2019 No acute events reported overnight, case discussed with nursing staff patient in no acute distress no complaints during my visit, most likely patient will be moving to LTAC soon 07/25/2019 Plans for trach int he am and dialysis in the afternoon, no acute events reported overnight. 07/24/2019 No acute events reported overnight, case discussed with nursing staff patient in no acute distress during my visit 07/23/2019 No acute events reported overnight, patient receiving dialysis today, case discussed with nursing staff patient in no acute distress during my visit 07/22/2019 No new changes remains critically ill, off CRRT, still planning for trach on Thursday unless we manage to wean over the weekend 07/21/2019 Continues to remain critically ill. The patient unable to be taken off ventilatory support as of yet., Discussed with pulmonary databases computer consultant. Planning all tracheostomy on Thursday if he is unable to be weaned off vent 07/20/2019 No acute events reported overnight, no fever or chills, remains critically stable, discussed with mother at bedside. [id number] Patient seen and examined in the ICU She is critically ill Mechanically ventilated Assist-control/25/450/30 with 8 of PEEP She is on cefepime daptomycin Flagyl and micafungin GEN for antibiotic coverage Also getting TPN and CRRT Sedated with Versed Getting IV albumin also She is tachycardic at 112 bpm Temp max 100.0 White blood count is down from 45,000 35,000 today Chart reviewed Discussed with RN [id number] Patient seen and examined in the ICU She remains very critically ill Going for a CT of the abdomen chest and pelvis Ventilated : On assist control 40% FiO2 Discussed with RN Chart reviewed [id number] Patient seen and examined in the ICU She is still on CRRT although we plan to change to hemodialysis soon Chart reviewed Discussed with RN Hemoglobin down to 6.9 (suspect CRRT related , Will let nephrology consider transfusion while on dialysis) [id number] Patient seen and examined in the ICU She is mechanically ventilated Before meals/25/450/30% Also on CRRT Very critically ill Chart reviewed Discussed with RN [id number] Patient seen and examined in the ICU She is now been transferred to the Covid 19 unit so we can rule out Covid and keep her in isolation Very critically ill Intubated and ventilated Assist control 40% Chart reviewed Discussed with RN Still on CRRT Getting a chest x-ray now Very concerned about her prognosis [id number] Patient seen and examined in the ICU She is extremely critically ill Remains mechanically ventilated with assist control/25/450/40% Also on continuous renal replacement therapy Chart reviewed Discussed with RN She has TPN hanging Also on pressors [id number] Patient seen and examined in the ICU She is still requiring CRRT On the vent with assist control but her FiO2 is down to 40% from yesterday Slightly better but still very critically ill Discussed with RN Chart reviewed [id number] Patient seen and examined in the ICU She remains extremely critically ill On IV fentanyl IV Versed IV Doxy On the vent Assist-control/25/450/70% She is critically ill Discussed with RN Chart reviewed Patient is currently on CRRT as well [id number] Patient seen and examined in the ICU She had to be intubated this morning On assist-control 25/450/100% with 10 of PEEP and only satting 87% She is extremely critically ill I'm not sure if she will survive Chart reviewed Discussed with RN Ms Diaz is a 48yo F w/ PMHx HTN, prediabetes who presents the emergency room complaints of abdominal pain. Patient described off and on 3 days. She states is constant, described as a squeezing sensation in a band-like distribution. + nausea, vomiting. She denies any fever or diarrhea. Patient denies any abdominal surgical procedures. She states is worse with movements, car ride. Pain initially was upper abdomen however now pretty much generalized. Last bowel movement was 07/03/2019. Nothing makes her pain better. Patient denies any shortness of breath. She does state the pain moves into her chest. Denies any headache or visual changes. Lipase 68949, AST 401, ALT 249, Bilirubin 1.4. CT abdomen confirms pancreatic inflammation, peripancreatic fluid and inflammatory changes around the pancreas consistent with pancreatitis. Cholelithiasis and 1.4cm uterine fibroid as well as possible left salpingitis. Admitted for further care GI, General surgery, ID, Pulm consulted. 07/04: Overnight per report no urine output. Added dilaudid for pain, PICC placed per IR. Renal US negative.Seen bedside in ICU, given 2L additional NSS and albumin infusion. Still hypotensive, started on levophed. Repeat CT abdomen with necrosis. Updated her fiancee 07/05: Sats are only 87% on nasal cannula oxygen. Dialysis catheter per nephrology 07/06: She is now on BiPAP appears more ill, now on dialysis 07/07: Seen on BiPAP. Her mother and another family member are present and seemed to be good support for her. Currently on dialysis. Appears critically ill 07/08: Overnight Tmax 101.7 , still on BiPAP FiO2 40%, still on low dose Levophed gtt, TPN initiated. On dialysis Overnight still febrile. Dialysis today. She wakes up and responds to pain. No CP. Vitals Vitals Vital Signs Date Time Temp Pulse Resp B/P (MAP) Pulse Ox O2 Delivery O2 Flow Rate FiO2 07/28/19 16:00 96 17 124/66 (85) 99 Ventilator 07/28/19 14:30 99.4 99.4 Physical Exam Physical Exam GENERAL: Orally intubated/sedated - generalized anasarca HEENT: Pupils equal, ETT, dobhoff + NECK: Supple LUNGS: Diminished aeration bases HEART: S1, S2, regular ABDOMEN: Distended, hypoactive BS, Rectal tube in place : Lind EXTREMITIES: Generalized edema, no cyanosis - some mottling, Rooke boots & SCDs bilaterally DERMATOLOGIC: Warm and dry. No generalized rash. CENTRAL NERVOUS SYSTEM: Sedated RIJ Temp HDC, RUE-PICC Lt IJ removed 07/25 Chestwall line present General: No acute distress Heart: Other (increased rate) Lungs: Other (dimished in BLL) Abdomen: Other (distended, firm) Extremities: No edema, Other (SOME CLUBBING ) Skin: Other (mottling noted to extremities ) Labs LABS Laboratory Tests Test 07/27/19 17:45 07/28/19 00:03 07/28/19 06:15 07/28/19 08:00 Glucose (Fingerstick) 197 mg/dL (70-99) 206 mg/dL (70-99) 203 mg/dL (70-99) White Blood Count 12.0 x10^3/uL (4.0-11.0) Red Blood Count 2.30 x10^6/uL (3.50-5.40) Hemoglobin 7.4 g/dL (12.0-15.5) Hematocrit 22.9 % (36.0-47.0) Mean Corpuscular Volume 100 fL (79-100) Mean Corpuscular Hemoglobin 32 pg (25-35) Mean Corpuscular Hemoglobin Concent 32 g/dL (31-37) Red Cell Distribution Width 20.1 % (11.5-14.5) Platelet Count 328 x10^3/uL (140-400) Sodium Level 137 mmol/L (136-145) Potassium Level 3.7 mmol/L (3.5-5.1) Chloride Level 99 mmol/L (98-107) Carbon Dioxide Level 29 mmol/L (21-32) Anion Gap 9 (6-14) Blood Urea Nitrogen 51 mg/dL (7-20) Creatinine 2.2 mg/dL (0.6-1.0) Estimated GFR (Cockcroft-Gault) 23.7 Glucose Level 211 mg/dL (70-99) Calcium Level 8.7 mg/dL (8.5-10.1) Phosphorus Level 3.6 mg/dL (2.6-4.7) Magnesium Level 2.1 mg/dL (1.8-2.4) Albumin 2.6 g/dL (3.4-5.0) Triglycerides Level 436 mg/dL (0-150) O2 Saturation 92 % (92-99) Arterial Blood pH 7.40 (7.35-7.45) Arterial Blood pCO2 at Patient Temp 45 mmHg (35-46) Arterial Blood pO2 at Patient Temp 69 mmHg (75-108) Arterial Blood HCO3 27 mmol/L (21-28) Arterial Blood Base Excess 2 mmol/L (-3-3) FiO2 35 Test 07/28/19 14:50 Glucose (Fingerstick) 157 mg/dL (70-99) Assessment and Plan Assessmemt and Plan Problems Medical Problems: (1) Acute pancreatitis Status: Acute (2) Cholelithiasis Status: Acute Comment Review of Relevant I have reviewed the following items kolby (where applicable) has been applied. Labs Laboratory Tests Test 07/26/19 18:03 07/26/19 23:40 07/27/19 06:10 07/27/19 06:17 Glucose (Fingerstick) 134 mg/dL (70-99) 167 mg/dL (70-99) 182 mg/dL (70-99) Sodium Level 135 mmol/L (136-145) Potassium Level 4.9 mmol/L (3.5-5.1) Chloride Level 102 mmol/L (98-107) Carbon Dioxide Level 24 mmol/L (21-32) Anion Gap 9 (6-14) Blood Urea Nitrogen 61 mg/dL (7-20) Creatinine 2.0 mg/dL (0.6-1.0) Estimated GFR (Cockcroft-Gault) 26.5 Glucose Level 187 mg/dL (70-99) Calcium Level 8.7 mg/dL (8.5-10.1) Phosphorus Level 4.8 mg/dL (2.6-4.7) Magnesium Level 1.9 mg/dL (1.8-2.4) Albumin 2.3 g/dL (3.4-5.0) Test 07/27/19 08:25 07/27/19 13:22 07/27/19 17:45 07/28/19 00:03 O2 Saturation 99 % (92-99) Arterial Blood pH 7.34 (7.35-7.45) Arterial Blood pCO2 at Patient Temp 36 mmHg (35-46) Arterial Blood pO2 at Patient Temp 242 mmHg (75-108) Arterial Blood HCO3 19 mmol/L (21-28) Arterial Blood Base Excess -6 mmol/L (-3-3) FiO2 40 Glucose (Fingerstick) 153 mg/dL (70-99) 197 mg/dL (70-99) 206 mg/dL (70-99) Test 07/28/19 06:15 07/28/19 08:00 07/28/19 14:50 White Blood Count 12.0 x10^3/uL (4.0-11.0) Red Blood Count 2.30 x10^6/uL (3.50-5.40) Hemoglobin 7.4 g/dL (12.0-15.5) Hematocrit 22.9 % (36.0-47.0) Mean Corpuscular Volume 100 fL (79-100) Mean Corpuscular Hemoglobin 32 pg (25-35) Mean Corpuscular Hemoglobin Concent 32 g/dL (31-37) Red Cell Distribution Width 20.1 % (11.5-14.5) Platelet Count 328 x10^3/uL (140-400) Sodium Level 137 mmol/L (136-145) Potassium Level 3.7 mmol/L (3.5-5.1) Chloride Level 99 mmol/L (98-107) Carbon Dioxide Level 29 mmol/L (21-32) Anion Gap 9 (6-14) Blood Urea Nitrogen 51 mg/dL (7-20) Creatinine 2.2 mg/dL (0.6-1.0) Estimated GFR (Cockcroft-Gault) 23.7 Glucose Level 211 mg/dL (70-99) Glucose (Fingerstick) 203 mg/dL (70-99) 157 mg/dL (70-99) Calcium Level 8.7 mg/dL (8.5-10.1) Phosphorus Level 3.6 mg/dL (2.6-4.7) Magnesium Level 2.1 mg/dL (1.8-2.4) Albumin 2.6 g/dL (3.4-5.0) Triglycerides Level 436 mg/dL (0-150) O2 Saturation 92 % (92-99) Arterial Blood pH 7.40 (7.35-7.45) Arterial Blood pCO2 at Patient Temp 45 mmHg (35-46) Arterial Blood pO2 at Patient Temp 69 mmHg (75-108) Arterial Blood HCO3 27 mmol/L (21-28) Arterial Blood Base Excess 2 mmol/L (-3-3) FiO2 35 Laboratory Tests Test 07/27/19 17:45 07/28/19 00:03 07/28/19 06:15 07/28/19 08:00 Glucose (Fingerstick) 197 mg/dL (70-99) 206 mg/dL (70-99) 203 mg/dL (70-99) White Blood Count 12.0 x10^3/uL (4.0-11.0) Red Blood Count 2.30 x10^6/uL (3.50-5.40) Hemoglobin 7.4 g/dL (12.0-15.5) Hematocrit 22.9 % (36.0-47.0) Mean Corpuscular Volume 100 fL (79-100) Mean Corpuscular Hemoglobin 32 pg (25-35) Mean Corpuscular Hemoglobin Concent 32 g/dL (31-37) Red Cell Distribution Width 20.1 % (11.5-14.5) Platelet Count 328 x10^3/uL (140-400) Sodium Level 137 mmol/L (136-145) Potassium Level 3.7 mmol/L (3.5-5.1) Chloride Level 99 mmol/L (98-107) Carbon Dioxide Level 29 mmol/L (21-32) Anion Gap 9 (6-14) Blood Urea Nitrogen 51 mg/dL (7-20) Creatinine 2.2 mg/dL (0.6-1.0) Estimated GFR (Cockcroft-Gault) 23.7 Glucose Level 211 mg/dL (70-99) Calcium Level 8.7 mg/dL (8.5-10.1) Phosphorus Level 3.6 mg/dL (2.6-4.7) Magnesium Level 2.1 mg/dL (1.8-2.4) Albumin 2.6 g/dL (3.4-5.0) Triglycerides Level 436 mg/dL (0-150) O2 Saturation 92 % (92-99) Arterial Blood pH 7.40 (7.35-7.45) Arterial Blood pCO2 at Patient Temp 45 mmHg (35-46) Arterial Blood pO2 at Patient Temp 69 mmHg (75-108) Arterial Blood HCO3 27 mmol/L (21-28) Arterial Blood Base Excess 2 mmol/L (-3-3) FiO2 35 Test 07/28/19 14:50 Glucose (Fingerstick) 157 mg/dL (70-99) Microbiology 07/24/19 Blood Culture - Preliminary, Resulted NO GROWTH AFTER 4 DAYS 07/23/19 Urine Culture - Final, Complete 07/23/19 Urine Culture Result 1 (ALEXANDRA) - Final, Complete Medications Current Medications Sodium Chloride 1,000 ml @ 1,000 mls/hr Q1H IV Last administered on 07/04/19at 03:00; Start 07/04/19 at 03:00; Stop 07/04/19 at 03:59; Status DC Ondansetron HCl (Zofran) 4 mg 1X ONCE IVP Last administered on 07/04/19at 03:27; Start 07/04/19 at 03:00; Stop 07/04/19 at 03:01; Status DC Morphine Sulfate (Morphine Sulfate) 4 mg 1X ONCE IV ; Start 07/04/19 at 03:00; Stop 07/04/19 at 03:01; Status Cancel Ketorolac Tromethamine (Toradol 30mg Vial) 30 mg 1X ONCE IV Last administered on 07/04/19at 02:54; Start 07/04/19 at 03:00; Stop 07/04/19 at 03:01; Status DC Fentanyl Citrate (Fentanyl 2ml Vial) 25 mcg 1X ONCE IVP Last administered on 07/04/19at 03:23; Start 07/04/19 at 03:30; Stop 07/04/19 at 03:31; Status DC Fentanyl Citrate (Fentanyl 2ml Vial) 100 mcg STK-MED ONCE .ROUTE ; Start 07/04/19 at 03:18; Stop 07/04/19 at 03:18; Status DC Iohexol (Omnipaque 350 Mg/ml) 90 ml 1X ONCE IV Last administered on 07/04/19at 03:25; Start 07/04/19 at 03:30; Stop 07/04/19 at 03:31; Status DC Info (CONTRAST GIVEN -- Rx MONITORING) 1 each PRN DAILY PRN MC SEE COMMENTS; Start 07/04/19 at 03:30; Stop 07/06/19 at 03:29; Status DC Hydromorphone HCl (Dilaudid) 0.5 mg 1X ONCE IV Last administered on 07/04/19at 03:55; Start 07/04/19 at 04:30; Stop 07/04/19 at 04:32; Status DC Ondansetron HCl (Zofran) 4 mg PRN Q8HRS PRN IV NAUSEA/VOMITING 1ST CHOICE; Start 07/04/19 at 05:00; Stop 07/04/19 at 09:27; Status DC Morphine Sulfate (Morphine Sulfate) 2 mg PRN Q2HR PRN IV SEVERE PAIN 7-10 Last administered on 07/05/19at 12:26; Start 07/04/19 at 05:00; Stop 07/05/19 at 14:15; Status DC Sodium Chloride 1,000 ml @ 125 mls/hr Q8H IV Last administered on 07/04/19at 20:56; Start 07/04/19 at 05:00; Stop 07/05/19 at 04:59; Status DC Hydromorphone HCl (Dilaudid) 0.5 mg PRN Q3HRS PRN IV SEVERE PAIN 7-10 Last administered on 07/05/19at 10:06; Start 07/04/19 at 05:00; Stop 07/05/19 at 12:01; Status DC Piperacillin Sod/ Tazobactam Sod 4.5 gm/Sodium Chloride 100 ml @ 200 mls/hr 1X ONCE IV Last administered on 07/04/19at 05:44; Start 07/04/19 at 06:00; Stop 07/04/19 at 06:29; Status DC Ondansetron HCl (Zofran) 4 mg PRN Q4HRS PRN IV NAUSEA/VOMITING 1ST CHOICE Last administered on 07/09/19at 16:15; Start 07/04/19 at 09:30 Insulin Human Lispro (HumaLOG) 0-9 UNITS Q6HRS SQ Last administered on 07/28/19at 06:25; Start 07/04/19 at 09:30 Dextrose (Dextrose 50%-Water Syringe) 12.5 gm PRN Q15MIN PRN IV SEE COMMENTS; Start 07/04/19 at 09:30 Pantoprazole Sodium (PROTONIX VIAL for IV PUSH) 40 mg DAILYAC IVP Last administered on 07/28/19at 14:51; Start 07/04/19 at 11:30 Prochlorperazine Edisylate (Compazine) 10 mg PRN Q6HRS PRN IV NAUSEA/VOMITING, 2nd CHOICE Last administered on 07/05/19at 00:42; Start 07/04/19 at 17:45 Atenolol (Tenormin) 100 mg DAILY PO ; Start 07/05/19 at 09:00; Stop 07/04/19 at 20:08; Status DC Metoprolol Tartrate (Lopressor Vial) 2.5 mg Q6HRS IVP Last administered on 07/05/19at 05:51; Start 07/04/19 at 20:15; Stop 07/05/19 at 10:02; Status DC Metoprolol Tartrate (Lopressor Vial) 5 mg Q6HRS IVP Last administered on 07/14/19at 00:12; Start 07/05/19 at 10:15; Stop 07/16/19 at 08:48; Status DC Hydromorphone HCl (Dilaudid) 1 mg PRN Q3HRS PRN IV SEVERE PAIN 7-10 Last administered on 07/11/19at 05:13; Start 07/05/19 at 12:00; Stop 07/19/19 at 00:25; Status DC Lidocaine HCl (Buffered Lidocaine 1%) 3 ml STK-MED ONCE .ROUTE ; Start 07/05/19 at 12:55; Stop 07/05/19 at 12:56; Status DC Albumin Human 500 ml @ 125 mls/hr 1X ONCE IV Last administered on 07/05/19at 14:33; Start 07/05/19 at 14:30; Stop 07/05/19 at 18:32; Status DC Norepinephrine Bitartrate 8 mg/ Dextrose 258 ml @ 17.299 mls/ hr CONT PRN IV PER PROTOCOL Last administered on 07/28/19at 12:39; Start 07/05/19 at 15:30 Sodium Chloride 1,000 ml @ 125 mls/hr Q8H IV Last administered on 07/05/19at 21:04; Start 07/05/19 at 16:00; Stop 07/06/19 at 02:42; Status DC Albumin Human 500 ml @ 125 mls/hr PRN BID PRN IV After every 2L NSS & BP < 90mm Last administered on 07/20/19at 14:21; Start 07/05/19 at 16:00 Iohexol (Omnipaque 300 Mg/ml) 60 ml 1X ONCE IV Last administered on 07/05/19at 17:20; Start 07/05/19 at 17:00; Stop 07/05/19 at 17:01; Status DC Info (CONTRAST GIVEN -- Rx MONITORING) 1 each PRN DAILY PRN MC SEE COMMENTS; Start 07/05/19 at 17:00; Stop 07/07/19 at 16:59; Status DC Meropenem 1 gm/ Sodium Chloride 100 ml @ 200 mls/hr Q8HRS IV Last administered on 07/06/19at 05:45; Start 07/05/19 at 20:00; Stop 07/06/19 at 08:48; Status DC Furosemide (Lasix) 40 mg 1X ONCE IVP Last administered on 07/05/19at 22:12; S tart 07/05/19 at 22:30; Stop 07/05/19 at 22:31; Status DC Calcium Chloride 1000 mg/Sodium Chloride 110 ml @ 220 mls/hr 1X ONCE IV Last administered on 07/05/19at 22:11; Start 07/05/19 at 22:30; Stop 07/05/19 at 22:59; Status DC Albuterol Sulfate (Ventolin Neb Soln) 2.5 mg 1X ONCE NEB Last administered on 07/06/19at 00:56; Start 07/05/19 at 22:30; Stop 07/05/19 at 22:31; Status DC Insulin Human Regular (HumuLIN R VIAL) 5 unit 1X ONCE IV Last administered on 07/05/19at 22:14; Start 07/05/19 at 22:30; Stop 07/05/19 at 22:31; Status DC Magnesium Sulfate 50 ml @ 25 mls/hr 1X ONCE IV Last administered on 07/06/19at 02:57; Start 07/06/19 at 03:00; Stop 07/06/19 at 04:59; Status DC Calcium Gluconate 1000 mg/Sodium Chloride 110 ml @ 220 mls/hr 1X ONCE IV Last administered on 07/06/19at 02:46; Start 07/06/19 at 03:00; Stop 07/06/19 at 03:29; Status DC Sodium Chloride 1,000 ml @ 200 mls/hr Q5H IV Last administered on 07/06/19at 02:46; Start 07/06/19 at 03:00; Stop 07/06/19 at 10:21; Status DC Calcium Gluconate 1000 mg/Sodium Chloride 110 ml @ 220 mls/hr 1X ONCE IV Last administered on 07/06/19at 03:21; Start 07/06/19 at 03:30; Stop 07/06/19 at 03:59; Status DC Sodium Bicarbonate 50 meq/Sodium Chloride 1,050 ml @ 75 mls/hr Q14H IV Last administered on 07/10/19at 21:10; Start 07/06/19 at 07:30; Stop 07/11/19 at 10:28; Status DC Calcium Gluconate 2000 mg/Sodium Chloride 120 ml @ 220 mls/hr 1X ONCE IV Last administered on 07/06/19at 09:05; Start 07/06/19 at 07:30; Stop 07/06/19 at 08:02; Status DC Lidocaine HCl (Xylocaine-Mpf 1% 2ml Vial) 2 ml STK-MED ONCE .ROUTE ; Start 07/06/19 at 08:47; Stop 07/06/19 at 08:47; Status DC Meropenem 500 mg/ Sodium Chloride 50 ml @ 100 mls/hr Q12HR IV Last administered on 07/11/19at 21:01; Start 07/06/19 at 18:00; Stop 07/12/19 at 07:58; Status DC Lidocaine HCl (Buffered Lidocaine 1%) 3 ml STK-MED ONCE .ROUTE ; Start 07/06/19 at 09:46; Stop 07/06/19 at 09:46; Status DC Lidocaine HCl (Buffered Lidocaine 1%) 6 ml 1X ONCE INJ Last administered on 07/06/19at 10:26; Start 07/06/19 at 10:15; Stop 07/06/19 at 10:16; Status DC Info (Tpn Per Pharmacy) 1 each PRN DAILY PRN MC SEE COMMENTS Last administered on 07/28/19at 12:53; Start 07/06/19 at 12:00 Sodium Chloride 1,000 ml @ 1,000 mls/hr Q1H PRN IV hypotension; Start 07/06/19 at 12:07; Stop 07/06/19 at 18:06; Status DC Diphenhydramine HCl (Benadryl) 25 mg 1X PRN PRN IV ITCHING; Start 07/06/19 at 12:15; Stop 07/07/19 at 12:14; Status DC Diphenhydramine HCl (Benadryl) 25 mg 1X PRN PRN IV ITCHING; Start 07/06/19 at 12:15; Stop 07/07/19 at 12:14; Status DC Sodium Chloride 1,000 ml @ 400 mls/hr Q2H30M PRN IV PATENCY; Start 07/06/19 at 12:07; Stop 07/07/19 at 00:06; Status DC Info (PHARMACY MONITORING -- do not chart) 1 each PRN DAILY PRN MC SEE COMMENTS; Start 07/06/19 at 12:15; Stop 07/08/19 at 08:13; Status DC Sodium Chloride 90 meq/Calcium Gluconate 10 meq/ Multivitamins 10 ml/Chromium/ Copper/Manganese/ Seleni/Zn 1 ml/ Total Parenteral Nutrition/Amino Acids/Dextrose/ Fat Emulsion Intravenous 55.005 ml @ 2.292 mls/hr TPN CONT IV ; Start 07/06/19 at 22:00; Stop 07/06/19 at 12:33; Status DC Info (Tpn Per Pharmacy) 1 each PRN DAILY PRN MC SEE COMMENTS; Start 07/06/19 at 12:30; Status UNV Sodium Chloride 90 meq/Calcium Gluconate 10 meq/ Multivitamins 10 ml/Chromium/ Copper/Manganese/ Seleni/Zn 0.5 ml/ Total Parenteral Nutrition/Amino Acids/Dextrose/ Fat Emulsion Intravenous 1,512 ml @ 63 mls/hr TPN CONT IV Last administered on 07/06/19at 22:06; Start 07/06/19 at 22:00; Stop 07/07/19 at 21:59; Status DC Calcium Carbonate/ Glycine (Tums) 500 mg PRN AFTMEALHC PRN PO INDIGESTION; Start 07/06/19 at 17:45 Calcium Gluconate (Calcium Gluconate) 2,000 mg 1X ONCE IVP Last administered on 07/07/19at 02:19; Start 07/07/19 at 02:15; Stop 07/07/19 at 02:16; Status DC Calcium Chloride 3000 mg/Sodium Chloride 1,030 ml @ 50 mls/hr [id number] IV Last administered on 07/09/19at 02:17; Start 07/07/19 at 08:00; Stop 07/09/19 at 15:23; Status DC Lorazepam (Ativan Inj) 1 mg PRN Q4HRS PRN IVP ANXIETY / AGITATION Last administered on 07/11/19at 00:34; Start 07/07/19 at 09:00 Sodium Chloride 1,000 ml @ 1,000 mls/hr Q1H PRN IV hypotension; Start 07/07/19 at 08:56; Stop 07/07/19 at 14:55; Status DC Albumin Human 200 ml @ 200 mls/hr 1X PRN PRN IV Hypotension; Start 07/07/19 at 09:00; Stop 07/07/19 at 14:59; Status DC Diphenhydramine HCl (Benadryl) 25 mg 1X PRN PRN IV ITCHING; Start 07/07/19 at 09:00; Stop 07/08/19 at 08:59; Status DC Diphenhydramine HCl (Benadryl) 25 mg 1X PRN PRN IV ITCHING; Start 07/07/19 at 09:00; Stop 07/08/19 at 08:59; Status DC Sodium Chloride 1,000 ml @ 400 mls/hr Q2H30M PRN IV PATENCY; Start 07/07/19 at 08:56; Stop 07/07/19 at 20:55; Status DC Info (PHARMACY MONITORING -- do not chart) 1 each PRN DAILY PRN MC SEE COMMENTS; Start 07/07/19 at 09:00; Status UNV Info (PHARMACY MONITORING -- do not chart) 1 each PRN DAILY PRN MC SEE COMMENTS; Start 07/07/19 at 09:00; Stop 07/08/19 at 08:13; Status DC Digoxin (Lanoxin) 500 mcg 1X ONCE IV Last administered on 07/07/19at 10:04; Start 07/07/19 at 10:00; Stop 07/07/19 at 10:01; Status DC Digoxin (Lanoxin) 125 mcg 1X ONCE IV Last administered on 07/07/19at 17:10; Start 07/07/19 at 18:00; Stop 07/07/19 at 18:01; Status DC Magnesium Sulfate 100 ml @ 25 mls/hr 1X ONCE IV Last administered on 07/07/19at 12:48; Start 07/07/19 at 13:00; Stop 07/07/19 at 16:59; Status DC Sodium Chloride 90 meq/Magnesium Sulfate 10 meq/ Calcium Gluconate 20 meq/ Multivitamins 10 ml/Chromium/ Copper/Manganese/ Seleni/Zn 0.5 ml/ Total Parenteral Nutrition/Amino Acids/Dextrose/ Fat Emulsion Intravenous 1,512 ml @ 63 mls/hr TPN CONT IV Last administered on 07/07/19at 22:25; Start 07/07/19 at 22:00; Stop 07/08/19 at 21:59; Status DC Sodium Chloride 1,000 ml @ 1,000 mls/hr Q1H PRN IV hypotension; Start 07/08/19 at 08:05; Stop 07/08/19 at 14:04; Status DC Albumin Human 200 ml @ 200 mls/hr 1X ONCE IV Last administered on 07/08/19at 08:57; Start 07/08/19 at 08:15; Stop 07/08/19 at 09:14; Status DC Diphenhydramine HCl (Benadryl) 25 mg 1X PRN PRN IV ITCHING; Start 07/08/19 at 08:15; Stop 07/09/19 at 08:14; Status DC Diphenhydramine HCl (Benadryl) 25 mg 1X PRN PRN IV ITCHING; Start 07/08/19 at 08:15; Stop 07/09/19 at 08:14; Status DC Sodium Chloride 1,000 ml @ 400 mls/hr Q2H30M PRN IV PATENCY; Start 07/08/19 at 08:05; Stop 07/08/19 at 20:04; Status DC Info (PHARMACY MONITORING -- do not chart) 1 each PRN DAILY PRN MC SEE COMMENTS; Start 07/08/19 at 08:15; Stop 07/12/19 at 07:57; Status DC Sodium Chloride 90 meq/Potassium Chloride 15 meq/ Potassium Phosphate 10 mmol/ Magnesium Sulfate 10 meq/Calcium Gluconate 20 meq/ Multivitamins 10 ml/Chromium/ Copper/Manganese/ Seleni/Zn 0.5 ml/ Total Parenteral Nutrition/Amino Acids/ Dextrose/ Fat Emulsion Intravenous 1,512 ml @ 63 mls/hr TPN CONT IV Last administered on 07/08/19at 21:01; Start 07/08/19 at 22:00; Stop 07/09/19 at 21:59; Status DC Potassium Chloride/Water 100 ml @ 100 mls/hr 1X ONCE IV Last administered on 07/08/19at 14:09; Start 07/08/19 at 14:00; Stop 07/08/19 at 14:59; Status DC Benzocaine (Hurricaine One) 1 spray 1X ONCE MM Last administered on 07/08/19at 16:38; Start 07/08/19 at 14:30; Stop 07/08/19 at 14:31; Status DC Lidocaine HCl (Glydo (Lidocaine) Jelly) 1 ramu 1X ONCE MM Last administered on 07/08/19at 16:38; Start 07/08/19 at 14:30; Stop 07/08/19 at 14:31; Status DC Linezolid/Dextrose 300 ml @ 300 mls/hr Q12HR IV Last administered on 07/14/19at 21:04; Start 07/08/19 at 20:00; Stop 07/15/19 at 07:50; Status DC Acetaminophen (Tylenol) 650 mg PRN Q6HRS PRN PO MILD PAIN / TEMP; Start 07/09/19 at 03:30; Stop 07/09/19 at 03:36; Status DC Acetaminophen (Tylenol) 650 mg PRN Q6HRS PRN PEG MILD PAIN / TEMP Last administered on 07/14/19at 07:35; Start 07/09/19 at 03:36 Sodium Chloride 1,000 ml @ 1,000 mls/hr Q1H PRN IV hypotension; Start 07/09/19 at 07:50; Stop 07/09/19 at 13:49; Status DC Albumin Human 200 ml @ 200 mls/hr 1X PRN PRN IV Hypotension; Start 07/09/19 at 08:00; Stop 07/09/19 at 13:59; Status DC Sodium Chloride (Normal Saline Flush) 10 ml 1X PRN PRN IV AP catheter pack; Start 07/09/19 at 08:00; Stop 07/10/19 at 07:59; Status DC Sodium Chloride (Normal Saline Flush) 10 ml 1X PRN PRN IV FINE GRADER catheter pack; Start 07/09/19 at 08:00; Stop 07/10/19 at 07:59; Status DC Sodium Chloride 1,000 ml @ 400 mls/hr Q2H30M PRN IV PATENCY; Start 07/09/19 at 07:50; Stop 07/09/19 at 19:49; Status DC Info (PHARMACY MONITORING -- do not chart) 1 each PRN DAILY PRN MC SEE COMMENTS; Start 07/09/19 at 08:00; Status UNV Info (PHARMACY MONITORING -- do not chart) 1 each PRN DAILY PRN MC SEE COMMENTS; Start 07/09/19 at 08:00; Stop 07/11/19 at 08:25; Status DC Sodium Chloride 90 meq/Potassium Chloride 15 meq/ Potassium Phosphate 10 mmol/ Magnesium Sulfate 10 meq/Calcium Gluconate 20 meq/ Multivitamins 10 ml/Chromium/ Copper/Manganese/ Seleni/Zn 0.5 ml/ Total Parenteral Nutrition/Amino Acids/De xtrose/ Fat Emulsion Intravenous 1,512 ml @ 63 mls/hr TPN CONT IV Last administered on 07/09/19at 20:57; Start 07/09/19 at 22:00; Stop 07/10/19 at 21:59; Status DC Sodium Chloride 90 meq/Potassium Chloride 15 meq/ Potassium Phosphate 15 mmol/ Magnesium Sulfate 10 meq/Calcium Gluconate 20 meq/ Multivitamins 10 ml/Chromium/ Copper/Manganese/ Seleni/Zn 0.5 ml/ Total Parenteral Nutrition/Amino Acids/Dextrose/ Fat Emulsion Intravenous 1,512 ml @ 63 mls/hr TPN CONT IV ; Start 07/10/19 at 22:00; Stop 07/10/19 at 14:16; Status DC Sodium Chloride 90 meq/Potassium Chloride 15 meq/ Potassium Phosphate 15 mmol/ Magnesium Sulfate 10 meq/Calcium Gluconate 20 meq/ Multivitamins 10 ml/Chromium/ Copper/Manganese/ Seleni/Zn 0.5 ml/ Total Parenteral Nutrition/Amino Acids /Dextrose/ Fat Emulsion Intravenous 1,200 ml @ 50 mls/hr TPN CONT IV ; Start 07/10/19 at 22:00; Stop 07/10/19 at 14:17; Status DC Sodium Chloride 90 meq/Potassium Chloride 15 meq/ Potassium Phosphate 10 mmol/ Magnesium Sulfate 10 meq/Calcium Gluconate 20 meq/ Multivitamins 10 ml/Chromium/ Copper/Manganese/ Seleni/Zn 0.5 ml/ Total Parenteral Nutrition/Amino Acids/Dextrose/ Fat Emulsion Intravenous 1,200 ml @ 50 mls/hr TPN CONT IV Last administered on 07/10/19at 23:29; Start 07/10/19 at 22:00; Stop 07/11/19 at 21:59; Status DC Sodium Chloride 1,000 ml @ 1,000 mls/hr Q1H PRN IV hypotension; Start 07/11/19 at 07:28; Stop 07/11/19 at 13:27; Status DC Albumin Human 200 ml @ 200 mls/hr 1X ONCE IV Last administered on 07/11/19at 08:51; Start 07/11/19 at 07:30; Stop 07/11/19 at 08:29; Status DC Diphenhydramine HCl (Benadryl) 25 mg 1X PRN PRN IV ITCHING; Start 07/11/19 at 07:30; Stop 07/12/19 at 07:29; Status DC Diphenhydramine HCl (Benadryl) 25 mg 1X PRN PRN IV ITCHING; Start 07/11/19 at 07:30; Stop 07/12/19 at 07:29; Status DC Sodium Chloride 1,000 ml @ 400 mls/hr Q2H30M PRN IV PATENCY; Start 07/11/19 at 07:28; Stop 07/11/19 at 19:27; Status DC Info (PHARMACY MONITORING -- do not chart) 1 each PRN DAILY PRN MC SEE COMMENTS; Start 07/11/19 at 07:30; Stop 07/22/19 at 13:01; Status DC Metronidazole 100 ml @ 100 mls/hr Q6HRS IV Last administered on 07/27/19at 06:26; Start 07/11/19 at 08:30; Stop 07/27/19 at 09:58; Status DC Micafungin Sodium 100 mg/Dextrose 100 ml @ 100 mls/hr Q24H IV Last administered on 07/28/19at 14:51; Start 07/11/19 at 09:00 Propofol 0 ml @ As Directed STK-MED ONCE IV ; Start 07/11/19 at 07:53; Stop 07/11/19 at 07:53; Status DC Etomidate (Amidate) 20 mg STK-MED ONCE IV ; Start 07/11/19 at 07:53; Stop 07/11/19 at 07:54; Status DC Midazolam HCl (Versed) 5 mg STK-MED ONCE .ROUTE ; Start 07/11/19 at 07:57; Stop 07/11/19 at 07:57; Status DC Fentanyl Citrate 30 ml @ 0 mls/hr CONT PRN IV SEE PROTOCOL Last administered on 07/28/19at 10:26; Start 07/11/19 at 08:15 Artificial Tears (Artificial Tears) 1 drop PRN Q1HR PRN OU DRY EYE, 1st choice; Start 07/11/19 at 08:15 Midazolam HCl 50 mg/Sodium Chloride 50 ml @ 0 mls/hr CONT PRN IV SEE PROTOCOL Last administered on 07/14/19at 22:39; Start 07/11/19 at 08:15; Stop 07/16/19 at 15:59; Status DC Etomidate (Amidate) 8 mg 1X ONCE IV Last administered on 07/11/19at 08:33; Start 07/11/19 at 08:30; Stop 07/11/19 at 08:31; Status DC Succinylcholine Chloride (Anectine) 120 mg 1X ONCE IV Last administered on 07/11/19at 08:34; Start 07/11/19 at 08:30; Stop 07/11/19 at 08:31; Status DC Midazolam HCl (Versed) 5 mg 1X ONCE IV ; Start 07/11/19 at 08:30; Stop 07/11/19 at 08:31; Status DC Potassium Chloride 15 meq/ Bicarbonate Dialysis Soln w/ out KCl 5,007.5 ml @ 1,000 mls/ hr Q5H1M IV Last administered on 07/12/19at 11:11; Start 07/11/19 at 12:00; Stop 07/12/19 at 11:15; Status DC Potassium Chloride 15 meq/ Bicarbonate Dialysis Soln w/ out KCl 5,007.5 ml @ 1,000 mls/ hr Q5H1M IV Last administered on 07/12/19at 11:12; Start 07/11/19 at 12:00; Stop 07/12/19 at 11:17; Status DC Potassium Chloride 15 meq/ Bicarbonate Dialysis Soln w/ out KCl 5,007.5 ml @ 1,000 mls/ hr Q5H1M IV Last administered on 07/12/19at 11:11; Start 07/11/19 at 12:00; Stop 07/12/19 at 11:19; Status DC Sodium Chloride 90 meq/Potassium Chloride 15 meq/ Potassium Phosphate 10 mmol/ Magnesium Sulfate 10 meq/Calcium Gluconate 20 meq/ Multivitamins 10 ml/Chromium/ Copper/Manganese/ Seleni/Zn 0.5 ml/ Total Parenteral Nutrition/Amino Acids/Dextrose/ Fat Emulsion Intravenous 1,400 ml @ 58.333 mls/ hr TPN CONT IV Last administered on 07/11/19at 21:42; Start 07/11/19 at 22:00; Stop 07/12/19 at 21:59; Status DC Heparin Sodium (Porcine) (Heparin Sodium) 5,000 unit Q8HRS SQ Last administered on 07/16/19at 05:55; Start 07/11/19 at 15:00; Stop 07/16/19 at 13:28; Status DC Meropenem 500 mg/ Sodium Chloride 50 ml @ 100 mls/hr Q6HRS IV Last administered on 07/13/19at 06:00; Start 07/12/19 at 09:00; Stop 07/13/19 at 07:29; Status DC Potassium Phosphate 20 mmol/ Sodium Chloride 106.6667 ml @ 51.667 m... 1X ONCE IV Last administered on 07/12/19at 11:22; Start 07/12/19 at 10:15; Stop 07/12/19 at 12:18; Status DC Acetaminophen (Tylenol Supp) [address] MILD PAIN / TEMP Last administered on 07/12/19at 10:37; Start 07/12/19 at 10:30 Potassium Chloride/Water 100 ml @ 100 mls/hr Q1H IV Last administered on 07/12/19at 12:12; Start 07/12/19 at 11:00; Stop 07/12/19 at 12:59; Status DC Potassium Chloride 20 meq/ Bicarbonate Dialysis Soln w/ out KCl 5,010 ml @ 1,000 mls/hr Q5H1M IV Last administered on 07/13/19at 08:48; Start 07/12/19 at 12:00; Stop 07/13/19 at 13:03; Status DC Potassium Chloride 20 meq/ Bicarbonate Dialysis Soln w/ out KCl 5,010 ml @ 1,000 mls/hr Q5H1M IV Last administered on 07/17/19at 14:52; Start 07/12/19 at 11:30; Stop 07/17/19 at 19:59; Status DC Potassium Chloride 20 meq/ Bicarbonate Dialysis Soln w/ out KCl 5,010 ml @ 1,000 mls/hr Q5H1M IV Last administered on 07/17/19at 14:53; Start 07/12/19 at 11:30; Stop 07/17/19 at 19:59; Status DC Sodium Chloride 90 meq/Potassium Chloride 15 meq/ Potassium Phosphate 15 mmol/ Magnesium Sulfate 10 meq/Calcium Gluconate 15 meq/ Multivitamins 10 ml/Chromium/ Copper/Manganese/ Seleni/Zn 0.5 ml/ Total Parenteral Nutrition/Amino Acids/Dextrose/ Fat Emulsion Intravenous 1,400 ml @ 58.333 mls/ hr TPN CONT IV Last administered on 07/12/19at 22:17; Start 07/12/19 at 22:00; Stop 07/13/19 at 21:59; Status DC Cefepime HCl (Maxipime) 2 gm Q12HR IVP Last administered on 07/26/19at 20:56; Start 07/13/19 at 09:00; Stop 07/27/19 at 09:58; Status DC Daptomycin 500 mg/ Sodium Chloride 50 ml @ 100 mls/hr Q48H IV Last administered on 07/27/19 14:02; Start 07/13/19 at 08:30 Lidocaine HCl (Buffered Lidocaine 1%) 3 ml 1X ONCE INJ Last administered on 07/13/19at 10:27; Start 07/13/19 at 10:30; Stop 07/13/19 at 10:31; Status DC Potassium Phosphate 20 mmol/ Sodium Chloride 106.6667 ml @ 51.667 m... 1X ONCE IV Last administered on 07/13/19at 12:51; Start 07/13/19 at 13:00; Stop 07/13/19 at 15:03; Status DC Sodium Chloride 90 meq/Potassium Chloride 15 meq/ Potassium Phosphate 18 mmol/ Magnesium Sulfate 8 meq/Calcium Gluconate 15 meq/ Multivitamins 10 ml/Chromium/ Copper/Manganese/ Seleni/Zn 0.5 ml/ Total Parenteral Nutrition/Amino Acids/Dextrose/ Fat Emulsion Intravenous 1,400 ml @ 58.333 mls/ hr TPN CONT IV Last administered on 07/13/19at 22:16; Start 07/13/19 at 22:00; Stop 07/14/19 at 21:59; Status DC Potassium Chloride 20 meq/ Bicarbonate Dialysis Soln w/ out KCl 5,010 ml @ 1,000 mls/hr Q5H1M IV Last administered on 07/17/19at 14:54; Start 07/13/19 at 16:00; Stop 07/17/19 at 19:59; Status DC Multi-Ingred Cream/Lotion/Oil/ Oint (Artificial Tears Eye Ointment) 1 ramu PRN Q1HR PRN OU DRY EYE, 2nd choice Last administered on 07/22/19at 11:05; Start 07/13/19 at 17:30 Sodium Chloride 90 meq/Potassium Chloride 15 meq/ Potassium Phosphate 18 mmol/ Magnesium Sulfate 8 meq/Calcium Gluconate 15 meq/ Multivitamins 10 ml/Chromium/ Copper/Manganese/ Seleni/Zn 0.5 ml/ Total Parenteral Nutrition/Amino Acids/Dextrose/ Fat Emulsion Intravenous 1,400 ml @ 58.333 mls/ hr TPN CONT IV Last administered on 07/14/19at 22:00; Start 07/14/19 at 22:00; Stop 07/15/19 at 21:59; Status DC Albumin Human 500 ml @ 125 mls/hr 1X ONCE IV ; Start 07/14/19 at 14:15; Stop 07/14/19 at 18:14; Status DC Sodium Chloride 90 meq/Potassium Chloride 15 meq/ Potassium Phosphate 18 mmol/ Magnesium Sulfate 8 meq/Calcium Gluconate 15 meq/ Multivitamins 10 ml/Chromium/ Copper/Manganese/ Seleni/Zn 0.5 ml/ Insulin Human Regular 10 unit/ Total Parenteral Nutrition/Amino Acids/Dextrose/ Fat Emulsion Intravenous 1,400 ml @ 58.333 mls/ hr TPN CONT IV Last administered on 07/15/19at 21:43; Start 07/15/19 at 22:00; Stop 07/16/19 at 21:59; Status DC Lidocaine HCl (Buffered Lidocaine 1%) 3 ml STK-MED ONCE .ROUTE ; Start 07/13/19 at 10:00; Stop 07/15/19 at 13:57; Status DC Midazolam HCl 100 mg/Sodium Chloride 100 ml @ 7 mls/hr CONT PRN IV SEE PROTOCOL Last administered on 07/27/19at 15:35; Start 07/16/19 at 16:00 Sodium Chloride 90 meq/Potassium Chloride 15 meq/ Potassium Phosphate 18 mmol/ Magnesium Sulfate 8 meq/Calcium Gluconate 15 meq/ Multivitamins 10 ml/Chromium/ Copper/Manganese/ Seleni/Zn 0.5 ml/ Insulin Human Regular 15 unit/ Total Parenteral Nutrition/Amino Acids/Dextrose/ Fat Emulsion Intravenous 1,400 ml @ 58.333 mls/ hr TPN CONT IV Last administered on 07/16/19at 20:34; Start 07/16/19 at 22:00; Stop 07/17/19 at 21:59; Status DC Info (Icu Electrolyte Protocol) 1 ea CONT PRN PRN MC PER PROTOCOL; Start 07/17/19 at 13:15 Sodium Chloride 90 meq/Potassium Chloride 15 meq/ Potassium Phosphate 18 mmol/ M agnesium Sulfate 8 meq/Calcium Gluconate 15 meq/ Multivitamins 10 ml/Chromium/ Copper/Manganese/ Seleni/Zn 0.5 ml/ Insulin Human Regular 15 unit/ Total Parenteral Nutrition/Amino Acids/Dextrose/ Fat Emulsion Intravenous 1,400 ml @ 58.333 mls/ hr TPN CONT IV Last administered on 07/17/19at 22:05; Start 07/17/19 at 22:00; Stop 07/18/19 at 21:59; Status DC Potassium Chloride 15 meq/ Bicarbonate Dialysis Soln w/ out KCl 5,007.5 ml @ 1,000 mls/ hr Q5H1M IV Last administered on 07/20/19at 18:14; Start 07/17/19 at 20:00; Stop 07/21/19 at 13:08; Status DC Potassium Chloride 15 meq/ Bicarbonate Dialysis Soln w/ out KCl 5,007.5 ml @ 1,000 mls/ hr Q5H1M IV Last administered on 07/20/19at 18:14; Start 07/17/19 at 20:00; Stop 07/21/19 at 13:08; Status DC Potassium Chloride 15 meq/ Bicarbonate Dialysis Soln w/ out KCl 5,007.5 ml @ 1,000 mls/ hr Q5H1M IV Last administered on 07/20/19at 18:14; Start 07/17/19 at 20:00; Stop 07/21/19 at 13:08; Status DC Iohexol (Omnipaque 240 Mg/ml) 30 ml 1X ONCE PO Last administered on 07/18/19at 11:30; Start 07/18/19 at 11:30; Stop 07/18/19 at 11:33; Status DC Info (CONTRAST GIVEN -- Rx MONITORING) 1 each PRN DAILY PRN MC SEE COMMENTS; Start 07/18/19 at 11:45; Stop 07/20/19 at 11:44; Status DC Sodium Chloride 90 meq/Potassium Chloride 15 meq/ Potassium Phosphate 18 mmol/ Magnesium Sulfate 8 meq/Calcium Gluconate 15 meq/ Multivitamins 10 ml/Chromium/ Copper/Manganese/ Seleni/Zn 0.5 ml/ Insulin Human Regular 15 unit/ Total Parenteral Nutrition/Amino Acids/Dextrose/ Fat Emulsion Intravenous 1,400 ml @ 58.333 mls/ hr TPN CONT IV Last administered on 07/18/19at 21:47; Start 07/18/19 at 22:00; Stop 07/19/19 at 21:59; Status DC Sodium Chloride 90 meq/Potassium Chloride 15 meq/ Potassium Phosphate 18 mmol/ Magnesium Sulfate 8 meq/Calcium Gluconate 15 meq/ Multivitamins 10 ml/Chromium/ Copper/Manganese/ Seleni/Zn 0.5 ml/ Insulin Human Regular 20 unit/ Total Parenteral Nutrition/Amino Acids/Dextrose/ Fat Emulsion Intravenous 1,400 ml @ 58.333 mls/ hr TPN CONT IV Last administered on 07/19/19at 21:36; Start 07/19/19 at 22:00; Stop 07/20/19 at 21:59; Status DC Alteplase, Recombinant (Cathflo For Central Catheter Clearance) 1 mg 1X ONCE INT CAT Last administered on 07/19/19at 20:03; Start 07/19/19 at 19:30; Stop 07/19/19 at 19:46; Status DC Alteplase, Recombinant (Cathflo For Central Catheter Clearance) 1 mg 1X ONCE INT CAT Last administered on 07/19/19at 22:05; Start 07/19/19 at 22:00; Stop 07/19/19 at 22:01; Status DC Sodium Chloride 90 meq/Potassium Chloride 15 meq/ Potassium Phosphate 18 mmol/ Magnesium Sulfate 8 meq/Calcium Gluconate 15 meq/ Multivitamins 10 ml/Chromium/ Copper/Manganese/ Seleni/Zn 0.5 ml/ Insulin Human Regular 20 unit/ Total Parenteral Nutrition/Amino Acids/Dextrose/ Fat Emulsion Intravenous 1,400 ml @ 58.333 mls/ hr TPN CONT IV Last administered on 07/20/19at 21:30; Start 07/20/19 at 22:00; Stop 07/21/19 at 21:59; Status DC Dexmedetomidine HCl 400 mcg/ Sodium Chloride 100 ml @ 0 mls/hr CONT PRN IV ANXIETY / AGITATION Last administered on 07/28/19at 13:36; Start 07/21/19 at 08:15 Sodium Chloride 500 ml @ 500 mls/hr 1X PRN PRN IV ELEVATED BP, SEE COMMENTS; Start 07/21/19 at 08:15 Atropine Sulfate (ATROPINE 0.5mg SYRINGE) 0.5 mg PRN Q5MIN PRN IV SEE COMMENTS; Start 07/21/19 at 08:15 Furosemide (Lasix) 20 mg 1X ONCE IVP Last administered on 07/21/19at 08:19; Start 07/21/19 at 08:15; Stop 07/21/19 at 08:16; Status DC Lidocaine HCl (Buffered Lidocaine 1%) 3 ml STK-MED ONCE .ROUTE ; Start 07/21/19 at 08:39; Stop 07/21/19 at 08:39; Status DC Lidocaine HCl (Buffered Lidocaine 1%) 6 ml 1X ONCE INJ Last administered on 07/21/19at 09:05; Start 07/21/19 at 09:00; Stop 07/21/19 at 09:06; Status DC Sodium Chloride 90 meq/Potassium Chloride 15 meq/ Potassium Phosphate 18 mmol/ Magnesium Sulfate 8 meq/Calcium Gluconate 15 meq/ Multivitamins 10 ml/Chromium/ Copper/Manganese/ Seleni/Zn 0.5 ml/ Insulin Human Regular 20 unit/ Total Parenteral Nutrition/Amino Acids/Dextrose/ Fat Emulsion Intravenous 1,400 ml @ 58.333 mls/ hr TPN CONT IV Last administered on 07/21/19at 22:45; Start 07/21/19 at 22:00; Stop 07/22/19 at 21:59; Status DC Sodium Chloride 1,000 ml @ 1,000 mls/hr Q1H PRN IV hypotension; Start 07/22/19 at 07:30; Stop 07/22/19 at 13:29; Status DC Albumin Human 200 ml @ 200 mls/hr 1X PRN PRN IV Hypotension Last administered on 07/22/19at 09:36; Start 07/22/19 at 07:30; Stop 07/22/19 at 13:29; Status DC Sodium Chloride (Normal Saline Flush) 10 ml 1X PRN PRN IV AP catheter pack; Start 07/22/19 at 07:30; Stop 07/22/19 at 21:29; Status DC Sodium Chloride (Normal Saline Flush) 10 ml 1X PRN PRN IV FINE GRADER catheter pack; Start 07/22/19 at 07:30; Stop 07/23/19 at 07:29; Status DC Sodium Chloride 1,000 ml @ 400 mls/hr Q2H30M PRN IV PATENCY; Start 07/22/19 at 07:30; Stop 07/22/19 at 19:29; Status DC Info (PHARMACY MONITORING -- do not chart) 1 each PRN DAILY PRN MC SEE COMMENTS; Start 07/22/19 at 07:30; Stop 07/22/19 at 13:02; Status DC Info (PHARMACY MONITORING -- do not chart) 1 each PRN DAILY PRN MC SEE COMMENTS; Start 07/22/19 at 07:30; Stop 07/24/19 at 12:45; Status DC Sodium Chloride 90 meq/Potassium Chloride 15 meq/ Potassium Phosphate 10 mmol/ Magnesium Sulfate 8 meq/Calcium Gluconate 15 meq/ Multivitamins 10 ml/Chromium/ Copper/Manganese/ Seleni/Zn 0.5 ml/ Insulin Human Regular 25 unit/ Total Parenteral Nutrition/Amino Acids/Dextrose/ Fat Emulsion Intravenous 1,400 ml @ 58.333 mls/ hr TPN CONT IV Last administered on 07/22/19at 22:19; Start 07/22/19 at 22:00; Stop 07/23/19 at 21:59; Status DC Heparin Sodium (Porcine) (Heparin Sodium) 5,000 unit Q12HR SQ Last administered on 07/28/19at 14:56; Start 07/22/19 at 21:00 Ondansetron HCl (Zofran) 4 mg PRN Q6HRS PRN IV NAUSEA/VOMITING; Start 07/25/19 at 07:00; Stop 07/26/19 at 06:59; Status DC Fentanyl Citrate (Fentanyl 2ml Vial) 25 mcg PRN Q5MIN PRN IV MILD PAIN 1-3; Start 07/25/19 at 07:00; Stop 07/26/19 at 06:59; Status DC Fentanyl Citrate (Fentanyl 2ml Vial) 50 mcg PRN Q5MIN PRN IV MODERATE TO SEVERE PAIN; Start 07/25/19 at 07:00; Stop 07/26/19 at 06:59; Status DC Ringer's Solution 1,000 ml @ 30 mls/hr Q24H IV ; Start 07/25/19 at 07:00; Stop 07/25/19 at 18:59; Status DC Lidocaine HCl (Xylocaine-Mpf 1% 2ml Vial) 2 ml PRN 1X PRN ID PRIOR TO IV START; Start 07/25/19 at 07:00; Stop 07/26/19 at 06:59; Status DC Prochlorperazine Edisylate (Compazine) 5 mg PACU PRN PRN IV NAUSEA, MRX1; Start 07/25/19 at 07:00; Stop 07/26/19 at 06:59; Status DC Sodium Chloride 1,000 ml @ 1,000 mls/hr Q1H PRN IV hypotension; Start 07/23/19 at 09:10; Stop 07/23/19 at 15:09; Status DC Albumin Human 200 ml @ 200 mls/hr 1X PRN PRN IV Hypotension Last administered on 07/23/19at 10:10; Start 07/23/19 at 09:15; Stop 07/23/19 at 15:14; Status DC Sodium Chloride 1,000 ml @ 400 mls/hr Q2H30M PRN IV PATENCY; Start 07/23/19 at 09:10; Stop 07/23/19 at 21:09; Status DC Info (PHARMACY MONITORING -- do not chart) 1 each PRN DAILY PRN MC SEE COMMENTS; Start 07/23/19 at 09:15; Stop 07/24/19 at 12:45; Status DC Info (PHARMACY MONITORING -- do not chart) 1 each PRN DAILY PRN MC SEE COMMENTS; Start 07/23/19 at 09:15; Stop 07/24/19 at 12:45; Status DC Sodium Chloride 90 meq/Potassium Chloride 15 meq/ Potassium Phosphate 10 mmol/ Magnesium Sulfate 8 meq/Calcium Gluconate 15 meq/ Multivitamins 10 ml/Chromium/ Copper/Manganese/ Seleni/Zn 0.5 ml/ Insulin Human Regular 25 unit/ Total Parenteral Nutrition/Amino Acids/Dextrose/ Fat Emulsion Intravenous 1,400 ml @ 58.333 mls/ hr TPN CONT IV Last administered on 07/23/19at 22:10; Start 07/23/19 at 22:00; Stop 07/24/19 at 21:59; Status DC Magnesium Sulfate 50 ml @ 25 mls/hr PRN DAILY PRN IV for Mag < 1.7 on am labs; Start 07/24/19 at 09:15 Sodium Chloride 90 meq/Potassium Chloride 15 meq/ Potassium Phosphate 10 mmol/ Magnesium Sulfate 8 meq/Calcium Gluconate 15 meq/ Multivitamins 10 ml/Chromium/ Copper/Manganese/ Seleni/Zn 0.5 ml/ Insulin Human Regular 25 unit/ Total Parenteral Nutrition/Amino Acids/Dextrose/ Fat Emulsion Intravenous 1,400 ml @ 58.333 mls/ hr TPN CONT IV Last administered on 07/24/19at 21:20; Start 07/24/19 at 22:00; Stop 07/25/19 at 21:59; Status DC Sodium Chloride 1,000 ml @ 1,000 mls/hr Q1H PRN IV hypotension; Start 07/24/19 at 12:23; Stop 07/24/19 at 18:22; Status DC Albumin Human 200 ml @ 200 mls/hr 1X ONCE IV Last administered on 07/24/19at 13:34; Start 07/24/19 at 12:30; Stop 07/24/19 at 13:29; Status DC Diphenhydramine HCl (Benadryl) 25 mg 1X PRN PRN IV ITCHING; Start 07/24/19 at 12:30; Stop 07/25/19 at 12:29; Status DC Diphenhydramine HCl (Benadryl) 25 mg 1X PRN PRN IV ITCHING; Start 07/24/19 at 12:30; Stop 07/25/19 at 12:29; Status DC Info (PHARMACY MONITORING -- do not chart) 1 each PRN DAILY PRN MC SEE COMMENTS; Start 07/24/19 at 12:30; Status Cancel Bupivacaine HCl/ Epinephrine Bitart (Sensorcain-Epi 0.5%-1:[id number] Mpf) 30 ml STK-MED ONCE .ROUTE Last administered on 07/25/19at 11:44; Start 07/25/19 at 11:00; Stop 07/25/19 at 11:01; Status DC Cellulose (Surgicel Fibrillar 1x2) 1 each STK-MED ONCE .ROUTE ; Start 07/25/19 at 11:00; Stop 07/25/19 at 11:01; Status DC Sodium Chloride 90 meq/Potassium Chloride 15 meq/ Potassium Phosphate 10 mmol/ Magnesium Sulfate 12 meq/Calcium Gluconate 15 meq/ Multivitamins 10 ml/Chromium/ Copper/Manganese/ Seleni/Zn 0.5 ml/ Insulin Human Regular 25 unit/ Total Parenteral Nutrition/Amino Acids/Dextrose/ Fat Emulsion Intravenous 1,400 ml @ 58.333 mls/ hr TPN CONT IV Last administered on 07/25/19at 22:24; Start 07/25/19 at 22:00; Stop 07/26/19 at 21:59; Status DC Propofol 20 ml @ As Directed STK-MED ONCE IV ; Start 07/25/19 at 11:07; Stop 07/25/19 at 11:07; Status DC Cellulose (Surgicel Hemostat 4x8) 1 each STK-MED ONCE .ROUTE Last administered on 07/25/19at 11:44; Start 07/25/19 at 11:55; Stop 07/25/19 at 11:56; Status DC Sevoflurane (Ultane) 60 ml STK-MED ONCE IH ; Start 07/25/19 at 12:46; Stop 07/25/19 at 12:46; Status DC Sodium Chloride 1,000 ml @ 1,000 mls/hr Q1H PRN IV hypotension; Start 07/25/19 at 13:51; Stop 07/25/19 at 19:50; Status DC Albumin Human 200 ml @ 200 mls/hr 1X PRN PRN IV Hypotension Last administered on 07/25/19at 14:51; Start 07/25/19 at 14:00; Stop 07/25/19 at 19:59; Status DC Diphenhydramine HCl (Benadryl) 25 mg 1X PRN PRN IV ITCHING; Start 07/25/19 at 14:00; Stop 07/26/19 at 13:59; Status DC Diphenhydramine HCl (Benadryl) 25 mg 1X PRN PRN IV ITCHING; Start 07/25/19 at 14:00; Stop 07/26/19 at 13:59; Status DC Sodium Chloride 1,000 ml @ 400 mls/hr Q2H30M PRN IV PATENCY; Start 07/25/19 at 13:51; Stop 07/26/19 at 01:50; Status DC Info (PHARMACY MONITORING -- do not chart) 1 each PRN DAILY PRN MC SEE COMMENTS; Start 07/25/19 at 14:00; Stop 07/28/19 at 08:16; Status DC Heparin Sodium (Porcine) (Hep Lock Adult) 500 unit STK-MED ONCE IVP ; Start 07/26/19 at 09:29; Stop 07/26/19 at 09:30; Status DC Sodium Chloride 1,000 ml @ 1,000 mls/hr Q1H PRN IV hypotension; Start 07/26/19 at 10:43; Stop 07/26/19 at 16:42; Status DC Sodium Chloride 1,000 ml @ 400 mls/hr Q2H30M PRN IV PATENCY; Start 07/26/19 at 10:43; Stop 07/26/19 at 22:42; Status DC Info (PHARMACY MONITORING -- do not chart) 1 each PRN DAILY PRN MC SEE COMMENTS; Start 07/26/19 at 10:45; Status UNV Info (PHARMACY MONITORING -- do not chart) 1 each PRN DAILY PRN MC SEE COMMENTS; Start 07/26/19 at 10:45; Status UNV Sodium Chloride 90 meq/Potassium Chloride 15 meq/ Magnesium Sulfate 12 meq/Calcium Gluconate 15 meq/ Multivitamins 10 ml/Chromium/ Copper/Manganese/ Seleni/Zn 0.5 ml/ Insulin Human Regular 25 unit/ Total Parenteral Nutrition/Amino Acids/Dextrose/ Fat Emulsion Intravenous 1,400 ml @ 58.333 mls/ hr TPN CONT IV Last administered on 07/26/19at 22:13; Start 07/26/19 at 22:00; Stop 07/27/19 at 21:59; Status DC Sodium Chloride 1,000 ml @ 1,000 mls/hr Q1H PRN IV hypotension; Start 07/27/19 at 07:50; Stop 07/27/19 at 13:49; Status DC Albumin Human 200 ml @ 200 mls/hr 1X ONCE IV ; Start 07/27/19 at 08:00; Stop 07/27/19 at 08:53; Status DC Diphenhydramine HCl (Benadryl) 25 mg 1X PRN PRN IV ITCHING; Start 07/27/19 at 08:00; Stop 07/28/19 at 07:59; Status DC Diphenhydramine HCl (Benadryl) 25 mg 1X PRN PRN IV ITCHING; Start 07/27/19 at 08:00; Stop 07/28/19 at 07:59; Status DC Info (PHARMACY MONITORING -- do not chart) 1 each PRN DAILY PRN MC SEE COMMENTS; Start 07/27/19 at 08:00; Stop 07/28/19 at 08:16; Status DC Albumin Human 50 ml @ 50 mls/hr 1X ONCE IV ; Start 07/27/19 at 08:53; Stop 07/27/19 at 08:56; Status DC Albumin Human 200 ml @ 50 mls/hr PRN 1X PRN IV HYPOTENSION Last administered on 07/27/19at 09:09; Start 07/27/19 at 09:00 Meropenem 500 mg/ Sodium Chloride 50 ml @ 100 mls/hr Q12H IV Last administered on 07/28/19at 14:51; Start 07/27/19 at 10:00 Sodium Chloride 90 meq/Magnesium Sulfate 12 meq/ Calcium Gluconate 15 meq/ Multivitamins 10 ml/Chromium/ Copper/Manganese/ Seleni/Zn 0.5 ml/ Insulin Human Regular 25 unit/ Total Parenteral Nutrition/Amino Acids/Dextrose/ Fat Emulsion I ntravenous 1,400 ml @ 58.333 mls/ hr TPN CONT IV Last administered on 07/27/19at 21:41; Start 07/27/19 at 22:00; Stop 07/28/19 at 21:59 Sodium Chloride 1,000 ml @ 1,000 mls/hr Q1H PRN IV hypotension; Start 07/28/19 at 07:58; Stop 07/28/19 at 13:57; Status DC Albumin Human 200 ml @ 200 mls/hr 1X PRN PRN IV Hypotension Last administered on 07/28/19at 09:30; Start 07/28/19 at 08:00; Stop 07/28/19 at 13:59; Status DC Sodium Chloride 1,000 ml @ 400 mls/hr Q2H30M PRN IV PATENCY; Start 07/28/19 at 07:58; Stop 07/28/19 at 19:57 Info (PHARMACY MONITORING -- do not chart) 1 each PRN DAILY PRN MC SEE COMMENTS; Start 07/28/19 at 08:00 Info (PHARMACY MONITORING -- do not chart) 1 each PRN DAILY PRN MC SEE COMMENTS; Start 07/28/19 at 08:15; Status UNV Sodium Chloride 90 meq/Potassium Phosphate 5 mmol/ Magnesium Sulfate 12 meq/Calcium Gluconate 15 meq/ Multivitamins 10 ml/Chromium/ Copper/Manganese/ Seleni/Zn 0.5 ml/ Insulin Human Regular 30 unit/ Total Parenteral Nutrition/Amino Acids/Dextrose/ Fat Emulsion Intravenous 1,400 ml @ 58.333 mls/ hr TPN CONT IV ; Start 07/28/19 at 22:00; Stop 07/29/19 at 21:59 Active Scripts Active Reported Bisoprolol Fumarate 5 Mg Tablet 10 Mg PO DAILY Vitals/I & O Vital Sign - Last 24 Hours 07/27/19 07/27/19 07/27/19 07/27/19 17:00 18:00 19:00 20:00 Temp 98.3 98.3 Pulse 101 102 98 98 Resp 18 18 18 18 B/P (MAP) 83/48 (60) 106/63 (77) 102/49 (66) 94/50 (65) Pulse Ox 98 97 95 95 O2 Delivery Ventilator Ventilator Ventilator Ventilator 07/27/19 07/27/19 07/27/19 07/27/19 20:00 20:10 21:00 22:00 Pulse 96 97 Resp 18 18 B/P (MAP) 113/65 (81) 104/70 (81) Pulse Ox 95 97 96 O2 Delivery Mechanical Ventilator Ventilator Ventilator Ventilator 07/27/19 07/27/19 07/28/19 07/28/19 23:00 23:15 00:00 00:00 Temp 99.8 99.8 Pulse 98 101 Resp 18 18 B/P (MAP) 104/67 (79) 111/65 (80) Pulse Ox 95 96 96 O2 Delivery Ventilator Ventilator Mechanical Ventilator Ventilator 07/28/19 07/28/19 07/28/19 07/28/19 01:00 02:00 03:00 04:00 Temp 98.8 98.8 Pulse 101 102 100 100 Resp 18 19 18 18 B/P (MAP) 123/70 (87) 117/66 (83) 113/68 (83) 105/71 (82) Pulse Ox 97 96 97 96 O2 Delivery Ventilator Ventilator Ventilator Ventilator 07/28/19 07/28/19 07/28/19 07/28/19 04:00 04:00 05:00 06:00 Pulse 97 90 Resp 18 18 B/P (MAP) 99/57 (71) 100/54 (69) Pulse Ox 96 97 98 O2 Delivery Mechanical Ventilator Ventilator Ventilator Ventilator 07/28/19 07/28/19 07/28/19 07/28/19 07:00 08:00 08:00 08:08 Temp 99.8 99.8 Pulse 96 95 Resp 18 18 B/P (MAP) 108/59 (75) 94/53 (67) Pulse Ox 98 97 98 O2 Delivery Ventilator Mechanical Ventilator Ventilator Ventilator 07/28/19 07/28/19 07/28/19 07/28/19 10:26 12:09 12:15 13:00 Pulse 96 94 Resp 18 18 B/P (MAP) 110/56 (74) 106/64 (78) Pulse Ox 98 100 100 100 O2 Delivery Ventilator Ventilator Ventilator 07/28/19 07/28/19 07/28/19 07/28/19 14:30 14:48 15:00 15:00 Temp 99.4 99.4 Pulse 98 90 Resp 18 18 B/P (MAP) 112/56 (74) 86/56 (66) Pulse Ox 100 100 99 O2 Delivery Ventilator Ventilator Mechanical Ventilator Ventilator 07/28/19 16:00 Pulse 96 Resp 17 B/P (MAP) 124/66 (85) Pulse Ox 99 O2 Delivery Ventilator Intake and Output 07/27/19 07/27/19 07/28/19 15:00 23:00 07:00 Intake Total 410 ml 1618.78 ml 1276 ml Output Total 100 ml 60 ml 410 ml Balance 310 ml 1558.78 ml 866 ml Hemodynamically unstable?: No Is patient in severe pain?: No Is NPO status required?: Yes ROSS DIAS MD Jul 28, 2019 16:45
--- NOTE | 2019-07-28 19:07 | NUR ---
RN spoke with Dr. Singh and notified him of gauze being present when doing trach care. Gauze was brown in color and came from stoma area-- description given to MD. Removed with tweezers after Dr. Singh stated it could be removed. Several pieces present. Trach care performed by Ernesto LE.
[2019-07-28] MEDS ORDERED: [UNRECOGNIZED DRUG - OTHER] IV SCH ×10 (22:00)
[2019-07-28] MEDS ORDERED: DEXTROSE 70% IV SCH ×10 (22:00)
[2019-07-28] MEDS ORDERED: TOTAL PARENTERAL NUTRITION IV SCH ×10 (22:00)
[2019-07-28] MEDS ORDERED: AMINO ACID IV SCH ×10 (22:00)
[2019-07-28] MEDS: ACETAMINOPHEN 650 MG SUPP.RECT. PR PRN (22:30)
[2019-07-29] VITALS (28 sets, daily range): BP systolic 71–149; BP diastolic 36–81
[2019-07-29] MEDS: INSULIN LISPRO 300 UNITS/3 ML VIAL. SQ SCH ×4 (00:24→18:14)
[2019-07-29] MEDS: DEXMEDETOMIDINE 400 MCG in IV NORMAL SALINE 100ML 96 ML IV PRN ×5 (01:00→21:48)
[2019-07-29 06:19] LABS: BASO # 0.1 x10^3/uL (0.0-0.2); BASO % 1 % (0-3); EOS # 1.1 x10^3/uL (0.0-0.7); EOS % 9 % (0-3); HEMATOCRIT 23.1 % (36.0-47.0); HEMOGLOBIN 7.4 g/dL (12.0-15.5); LYMPH # 2.3 x10^3/uL (1.0-4.8); LYMPH % 17 % (24-48); MEAN CORPUSCULAR HEMOGLOBIN 32 pg (25-35); MEAN CORPUSCULAR HGB CONC 32 g/dL (31-37); MEAN CORPUSCULAR VOLUME 100 fL (79-100); MONO # 1.7 x10^3/uL (0.0-1.1); MONO % 13 % (0-9); NEUT # 7.9 x10^3/uL (1.8-7.7); NEUT % 60 % (31-73); PLATELET COUNT 341 x10^3/uL (140-400); RED BLOOD COUNT 2.32 x10^6/uL (3.50-5.40); RED CELL DISTRIBUTION WIDTH 19.5 % (11.5-14.5); WHITE BLOOD COUNT 13.1 x10^3/uL (4.0-11.0)
[2019-07-29 06:31] LABS: CALCIUM 8.4 mg/dL (8.5-10.1); CREATININE 2.3 mg/dL (0.6-1.0); GFR 22.5; PHOSPHORUS 2.6 mg/dL (2.6-4.7); POTASSIUM 3.8 mmol/L (3.5-5.1)
[2019-07-29] MEDS: MICAFUNGIN 100 MG in IV DEXTROSE 5% 100ML 100 ML IV SCH (08:05)
[2019-07-29] MEDS: PANTOPRAZOLE IV PUSH 40 MG VIAL. IVP SCH (08:05)
[2019-07-29] MEDS: HEPARIN for SUB-Q USE 5,000 UNIT/ML VIAL. SQ SCH ×2 (09:00→21:50)
[2019-07-29 09:08] LABS: BASE EXCESS ABG 4 mmol/L (-3-3); HCO3 ABG 28 mmol/L (21-28); PCO2 ABG 44 mmHg (35-46); PO2 ABG 81 mmHg (75-108); SAT O2 ABG 95 % (92-99)
[2019-07-29] MEDS: DAPTOmycin (GENERIC) IVPB 500 MG in IV NORMAL SALINE 50ML 50 ML IV SCH (09:57)
--- NOTE | 2019-07-29 10:00 | PDOC ---
Objective: Objective: D/w nurse - stable, no change. Vital Signs: Vital Signs Date Time Temp Pulse Resp B/P (MAP) Pulse Ox O2 Delivery O2 Flow Rate FiO2 07/29/19 08:30 95 18 149/69 (95) 98 Ventilator 07/29/19 08:00 100.1 100.1 Labs: Laboratory Tests Test 07/28/19 14:50 07/28/19 18:30 07/29/19 00:21 07/29/19 06:00 Glucose (Fingerstick) 157 mg/dL 189 mg/dL 218 mg/dL White Blood Count 13.1 x10^3/uL Red Blood Count 2.32 x10^6/uL Hemoglobin 7.4 g/dL Hematocrit 23.1 % Mean Corpuscular Volume 100 fL Mean Corpuscular Hemoglobin 32 pg Mean Corpuscular Hemoglobin Concent 32 g/dL Red Cell Distribution Width 19.5 % Platelet Count 341 x10^3/uL Neutrophils (%) (Auto) 60 % Lymphocytes (%) (Auto) 17 % Monocytes (%) (Auto) 13 % Eosinophils (%) (Auto) 9 % Basophils (%) (Auto) 1 % Neutrophils # (Auto) 7.9 x10^3/uL Lymphocytes # (Auto) 2.3 x10^3/uL Monocytes # (Auto) 1.7 x10^3/uL Eosinophils # (Auto) 1.1 x10^3/uL Basophils # (Auto) 0.1 x10^3/uL Sodium Level 137 mmol/L Potassium Level 3.8 mmol/L Chloride Level 99 mmol/L Carbon Dioxide Level 30 mmol/L Anion Gap 8 Blood Urea Nitrogen 49 mg/dL Creatinine 2.3 mg/dL Estimated GFR (Cockcroft-Gault) 22.5 Glucose Level 209 mg/dL Calcium Level 8.4 mg/dL Phosphorus Level 2.6 mg/dL Albumin 3.0 g/dL Test 07/29/19 09:00 O2 Saturation 95 % Arterial Blood pH 7.43 Arterial Blood pCO2 at Patient Temp 44 mmHg Arterial Blood pO2 at Patient Temp 81 mmHg Arterial Blood HCO3 28 mmol/L Arterial Blood Base Excess 4 mmol/L FiO2 35% vent Imaging: CT A/P 07/28/19 IMPRESSION: 1. Increased ascites. 2. 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 Cholelithiasis with thickening of the gallbladder wall. 4. Persistent pleural effusions and atelectasis in the lung bases. PE: GEN: NAD LUNGS: trach/vent, clear HEART: borderline tachycardic ABD: distended NEURO/PSYCH: sedated A/P: Gallstone pancreatitis, MOSF -- Interval CT as above, will review w/ Dr. Weber. Hemodynamically unstable?: No Is patient in severe pain?: No Is NPO status required?: Yes CYNDEE FALCON Jul 29, 2019 10:00
--- NOTE | 2019-07-29 10:05 | PDOC ---
Infectious Disease Note Subjective: Subjective Sedated and intubated, T max > 101 afebrile this am TPN Rectal tube Vital Signs: Vital Signs Vital Signs Date Time Temp Pulse Resp B/P (MAP) Pulse Ox O2 Delivery O2 Flow Rate FiO2 07/29/19 08:30 95 18 149/69 (95) 98 Ventilator 07/29/19 08:00 100.1 100.1 Physical Exam: PHYSICAL EXAM GENERAL: Orally intubated/sedated - generalized anasarca HEENT: Pupils equal, ETT, dobhoff + NECK: Supple ,trach + LUNGS: Diminished aeration bases HEART: S1, S2, regular ABDOMEN: Distended, hypoactive BS, Rectal tube in place : Lind EXTREMITIES: Generalized edema, no cyanosis - some mottling, Rooke boots & SCDs bilaterally DERMATOLOGIC: Warm and dry. No generalized rash. CENTRAL NERVOUS SYSTEM: Sedated HDC + Chestwall line present Medications: Inpatient Meds: Current Medications Medications (Trade) Dose Ordered Sig/Yvon Start Time Stop Time Status Last Admin Dose Admin Acetaminophen (Tylenol Supp) 650 mg PRN Q6HRS PRN 07/12/19 10:30 07/28/19 22:30 650 MG Acetaminophen (Tylenol) 650 mg PRN Q6HRS PRN 07/09/19 03:36 07/14/19 07:35 650 MG Albumin Human 200 ml @ 200 mls/hr 1X PRN PRN 07/28/19 08:00 07/28/19 13:59 DC 07/28/19 09:30 200 MLS/HR Albuterol Sulfate (Ventolin Neb Soln) 2.5 mg 1X ONCE 07/05/19 22:30 07/05/19 22:31 DC 07/06/19 00:56 2.5 MG Alteplase, Recombinant (Cathflo For Central Catheter Clearance) 1 mg 1X ONCE 07/19/19 22:00 07/19/19 22:01 DC 07/19/19 22:05 1 MG Artificial Tears (Artificial Tears) 1 drop PRN Q1HR PRN 07/11/19 08:15 Atenolol (Tenormin) 100 mg DAILY 07/05/19 09:00 07/04/19 20:08 DC Atropine Sulfate (ATROPINE 0.5mg SYRINGE) 0.5 mg PRN Q5MIN PRN 07/21/19 08:15 Benzocaine (Hurricaine One) 1 spray 1X ONCE 07/08/19 14:30 07/08/19 14:31 DC 07/08/19 16:38 1 SPRAY Bupivacaine HCl/ Epinephrine Bitart (Sensorcain-Epi 0.5%-1:817198 Mpf) 30 ml STK-MED ONCE 07/25/19 11:00 07/25/19 11:01 DC 07/25/19 11:44 1 ML Calcium Carbonate/ Glycine (Tums) 500 mg PRN AFTMEALHC PRN 07/06/19 17:45 Calcium Chloride 1000 mg/Sodium Chloride 110 ml @ 220 mls/hr 1X ONCE 07/05/19 22:30 07/05/19 22:59 DC 07/05/19 22:11 220 MLS/HR Calcium Chloride 3000 mg/Sodium Chloride 1,030 ml @ 50 mls/hr [id number] 07/07/19 08:00 07/09/19 15:23 DC 07/09/19 02:17 50 MLS/HR Calcium Gluconate (Calcium Gluconate) 2,000 mg 1X ONCE 07/07/19 02:15 07/07/19 02:16 DC 07/07/19 02:19 2,000 MG Calcium Gluconate 1000 mg/Sodium Chloride 110 ml @ 220 mls/hr 1X ONCE 07/06/19 03:30 07/06/19 03:59 DC 07/06/19 03:21 220 MLS/HR Calcium Gluconate 2000 mg/Sodium Chloride 120 ml @ 220 mls/hr 1X ONCE 07/06/19 07:30 07/06/19 08:02 DC 07/06/19 09:05 220 MLS/HR Cefepime HCl (Maxipime) 2 gm Q12HR 07/13/19 09:00 07/27/19 09:58 DC 07/26/19 20:56 2 GM Cellulose (Surgicel Fibrillar 1x2) 1 each STK-MED ONCE 07/25/19 11:00 07/25/19 11:01 DC Cellulose (Surgicel Hemostat 4x8) 1 each STK-MED ONCE 07/25/19 11:55 07/25/19 11:56 DC 07/25/19 11:44 1 EACH Daptomycin 500 mg/ Sodium Chloride 50 ml @ 100 mls/hr Q48H 07/13/19 08:30 07/29/19 09:57 100 MLS/HR Dexmedetomidine HCl 400 mcg/ Sodium Chloride 100 ml @ 0 mls/hr CONT PRN 07/21/19 08:15 07/29/19 08:26 22.2 MLS/HR Dextrose (Dextrose 50%-Water Syringe) 12.5 gm PRN Q15MIN PRN 07/04/19 09:30 Digoxin (Lanoxin) 125 mcg 1X ONCE 07/07/19 18:00 07/07/19 18:01 DC 07/07/19 17:10 125 MCG Diphenhydramine HCl (Benadryl) 25 mg 1X PRN PRN 07/27/19 08:00 07/28/19 07:59 DC Etomidate (Amidate) 8 mg 1X ONCE 07/11/19 08:30 07/11/19 08:31 DC 07/11/19 08:33 8 MG Fentanyl Citrate (Fentanyl 2ml Vial) 50 mcg PRN Q5MIN PRN 07/25/19 07:00 07/26/19 06:59 DC Furosemide (Lasix) 20 mg 1X ONCE 07/21/19 08:15 07/21/19 08:16 DC 07/21/19 08:19 20 MG Heparin Sodium (Porcine) (Hep Lock Adult) 500 unit STK-MED ONCE 07/26/19 09:29 07/26/19 09:30 DC Heparin Sodium (Porcine) (Heparin Sodium) 5,000 unit Q12HR 07/22/19 21:00 07/29/19 09:00 5,000 UNIT Hydromorphone HCl (Dilaudid) 1 mg PRN Q3HRS PRN 07/05/19 12:00 07/19/19 00:25 DC 07/11/19 05:13 1 MG Info (CONTRAST GIVEN -- Rx MONITORING) 1 each PRN DAILY PRN 07/18/19 11:45 07/20/19 11:44 DC Info (Icu Electrolyte Protocol) 1 ea CONT PRN PRN 07/17/19 13:15 Info (PHARMACY MONITORING -- do not chart) 1 each PRN DAILY PRN 07/28/19 08:15 UNV Info (Tpn Per Pharmacy) 1 each PRN DAILY PRN 07/06/19 12:30 UNV Insulin Human Lispro (HumaLOG) 0-9 UNITS Q6HRS 07/04/19 09:30 07/29/19 07:52 5 UNITS Insulin Human Regular (HumuLIN R VIAL) 5 unit 1X ONCE 07/05/19 22:30 07/05/19 22:31 DC 07/05/19 22:14 5 UNIT Iohexol (Omnipaque 240 Mg/ml) 30 ml 1X ONCE 07/18/19 11:30 07/18/19 11:33 DC 07/18/19 11:30 30 ML Iohexol (Omnipaque 300 Mg/ml) 60 ml 1X ONCE 07/05/19 17:00 07/05/19 17:01 DC 07/05/19 17:20 60 ML Iohexol (Omnipaque 350 Mg/ml) 90 ml 1X ONCE 07/04/19 03:30 07/04/19 03:31 DC 07/04/19 03:25 90 ML Ketorolac Tromethamine (Toradol 30mg Vial) 30 mg 1X ONCE 07/04/19 03:00 07/04/19 03:01 DC 07/04/19 02:54 30 MG Lidocaine HCl (Buffered Lidocaine 1%) 6 ml 1X ONCE 07/21/19 09:00 07/21/19 09:06 DC 07/21/19 09:05 6 ML Lidocaine HCl (Glydo (Lidocaine) Jelly) 1 ramu 1X ONCE 07/08/19 14:30 07/08/19 14:31 DC 07/08/19 16:38 1 RAMU Lidocaine HCl (Xylocaine-Mpf 1% 2ml Vial) 2 ml PRN 1X PRN 07/25/19 07:00 07/26/19 06:59 DC Linezolid/Dextrose 300 ml @ 300 mls/hr Q12HR 07/08/19 20:00 07/15/19 07:50 DC 07/14/19 21:04 300 MLS/HR Lorazepam (Ativan Inj) 1 mg PRN Q4HRS PRN 07/07/19 09:00 07/11/19 00:34 1 MG Magnesium Sulfate 50 ml @ 25 mls/hr PRN DAILY PRN 07/24/19 09:15 Meropenem 1 gm/ Sodium Chloride 100 ml @ 200 mls/hr Q8HRS 07/05/19 20:00 07/06/19 08:48 DC 07/06/19 05:45 200 MLS/HR Meropenem 500 mg/ Sodium Chloride 50 ml @ 100 mls/hr Q12H 07/27/19 10:00 07/28/19 22:12 100 MLS/HR Metoprolol Tartrate (Lopressor Vial) 5 mg Q6HRS 07/05/19 10:15 07/16/19 08:48 DC 07/14/19 00:12 5 MG Metronidazole 100 ml @ 100 mls/hr Q6HRS 07/11/19 08:30 07/27/19 09:58 DC 07/27/19 06:26 100 MLS/HR Micafungin Sodium 100 mg/Dextrose 100 ml @ 100 mls/hr Q24H 07/11/19 09:00 07/29/19 08:05 100 MLS/HR Midazolam HCl (Versed) 5 mg 1X ONCE 07/11/19 08:30 07/11/19 08:31 DC Midazolam HCl 100 mg/Sodium Chloride 100 ml @ 7 mls/hr CONT PRN 07/16/19 16:00 07/27/19 15:35 7 MLS/HR Midazolam HCl 50 mg/Sodium Chloride 50 ml @ 0 mls/hr CONT PRN 07/11/19 08:15 07/16/19 15:59 DC 07/14/19 22:39 7 MLS/HR Morphine Sulfate (Morphine Sulfate) 2 mg PRN Q2HR PRN 07/04/19 05:00 07/05/19 14:15 DC 07/05/19 12:26 2 MG Multi-Ingred Cream/Lotion/Oil/ Oint (Artificial Tears Eye Ointment) 1 ramu PRN Q1HR PRN 07/13/19 17:30 07/22/19 11:05 1 RAMU Norepinephrine Bitartrate 8 mg/ Dextrose 258 ml @ 17.299 mls/ hr CONT PRN 07/05/19 15:30 07/28/19 12:39 17.299 MLS/HR Ondansetron HCl (Zofran) 4 mg PRN Q6HRS PRN 07/25/19 07:00 07/26/19 06:59 DC Pantoprazole Sodium (PROTONIX VIAL for IV PUSH) 40 mg DAILYAC 07/04/19 11:30 07/29/19 08:05 40 MG Piperacillin Sod/ Tazobactam Sod 4.5 gm/Sodium Chloride 100 ml @ 200 mls/hr 1X ONCE 07/04/19 06:00 07/04/19 06:29 DC 07/04/19 05:44 200 MLS/HR Potassium Chloride 15 meq/ Bicarbonate Dialysis Soln w/ out KCl 5,007.5 ml @ 1,000 mls/ hr Q5H1M 07/17/19 20:00 07/21/19 13:08 DC 07/20/19 18:14 1,000 MLS/HR Potassium Chloride 20 meq/ Bicarbonate Dialysis Soln w/ out KCl 5,010 ml @ 1,000 mls/hr Q5H1M 07/13/19 16:00 07/17/19 19:59 DC 07/17/19 14:54 1,000 MLS/HR Potassium Chloride/Water 100 ml @ 100 mls/hr Q1H 07/12/19 11:00 07/12/19 12:59 DC 07/12/19 12:12 100 MLS/HR Potassium Phosphate 20 mmol/ Sodium Chloride 106.6667 ml @ 51.667 m... 1X ONCE 07/13/19 13:00 07/13/19 15:03 DC 07/13/19 12:51 51.667 MLS/HR Prochlorperazine Edisylate (Compazine) 5 mg PACU PRN PRN 07/25/19 07:00 07/26/19 06:59 DC Propofol 20 ml @ As Directed STK-MED ONCE 07/25/19 11:07 07/25/19 11:07 DC Ringer's Solution 1,000 ml @ 30 mls/hr Q24H 07/25/19 07:00 07/25/19 18:59 DC Sevoflurane (Ultane) 60 ml STK-MED ONCE 07/25/19 12:46 07/25/19 12:46 DC Sodium Bicarbonate 50 meq/Sodium Chloride 1,050 ml @ 75 mls/hr Q14H 07/06/19 07:30 07/11/19 10:28 DC 07/10/19 21:10 75 MLS/HR Sodium Chloride (Normal Saline Flush) 10 ml 1X PRN PRN 07/22/19 07:30 07/23/19 07:29 DC Sodium Chloride 90 meq/Calcium Gluconate 10 meq/ Multivitamins 10 ml/Chromium/ Copper/Manganese/ Seleni/Zn 0.5 ml/ Total Parenteral Nutrition/Amino Acids/Dextrose/ Fat Emulsion Intravenous 1,512 ml @ 63 mls/hr TPN CONT 07/06/19 22:00 07/07/19 21:59 DC 07/06/19 22:06 63 MLS/HR Sodium Chloride 90 meq/Calcium Gluconate 10 meq/ Multivitamins 10 ml/Chromium/ Copper/Manganese/ Seleni/Zn 1 ml/ Total Parenteral Nutrition/Amino Acids/Dextrose/ Fat Emulsion Intravenous 55.005 ml @ 2.292 mls/hr TPN CONT 07/06/19 22:00 07/06/19 12:33 DC Sodium Chloride 90 meq/Magnesium Sulfate 10 meq/ Calcium Gluconate 20 meq/ Multivitamins 10 ml/Chromium/ Copper/Manganese/ Seleni/Zn 0.5 ml/ Total Parenteral Nutrition/Amino Acids/Dextrose/ Fat Emulsion Intravenous 1,512 ml @ 63 mls/hr TPN CONT 07/07/19 22:00 07/08/19 21:59 DC 07/07/19 22:25 63 MLS/HR Sodium Chloride 90 meq/Magnesium Sulfate 12 meq/ Calcium Gluconate 15 meq/ Multivitamins 10 ml/Chromium/ Copper/Manganese/ Seleni/Zn 0.5 ml/ Insulin Human Regular 25 unit/ Total Parenteral Nutrition/Amino Acids/Dextrose/ Fat Emulsion Intravenous 1,400 ml @ 58.333 mls/ hr TPN CONT 07/27/19 22:00 07/28/19 21:59 DC 07/27/19 21:41 58.333 MLS/HR Sodium Chloride 90 meq/Potassium Chloride 15 meq/ Magnesium Sulfate 12 meq/Calcium Gluconate 15 meq/ Multivitamins 10 ml/Chromium/ Copper/Manganese/ Seleni/Zn 0.5 ml/ Insulin Human Regular 25 unit/ Total Parenteral Nutrition/Amino Acids/Dextrose/ Fat Emulsion Intravenous 1,400 ml @ 58.333 mls/ hr TPN CONT 07/26/19 22:00 07/27/19 21:59 DC 07/26/19 22:13 58.333 MLS/HR Sodium Chloride 90 meq/Potassium Chloride 15 meq/ Potassium Phosphate 10 mmol/ Magnesium Sulfate 8 meq/Calcium Gluconate 15 meq/ Multivitamins 10 ml/Chromium/ Copper/Manganese/ Seleni/Zn 0.5 ml/ Insulin Human Regular 25 unit/ Total Parenteral Nutrition/Amino Acids/Dextrose/ Fat Emulsion Intravenous 1,400 ml @ 58.333 mls/ hr TPN CONT 07/24/19 22:00 07/25/19 21:59 DC 07/24/19 21:20 58.333 MLS/HR Sodium Chloride 90 meq/Potassium Chloride 15 meq/ Potassium Phosphate 10 mmol/ Magnesium Sulfate 10 meq/Calcium Gluconate 20 meq/ Multivitamins 10 ml/Chromium/ Copper/Manganese/ Seleni/Zn 0.5 ml/ Total Parenteral Nutrition/Amino Acids/Dextrose/ Fat Emulsion Intravenous 1,400 ml @ 58.333 mls/ hr TPN CONT 07/11/19 22:00 07/12/19 21:59 DC 07/11/19 21:42 58.333 MLS/HR Sodium Chloride 90 meq/Potassium Chloride 15 meq/ Potassium Phosphate 10 mmol/ Magnesium Sulfate 12 meq/Calcium Gluconate 15 meq/ Multivitamins 10 ml/Chromium/ Copper/Manganese/ Seleni/Zn 0.5 ml/ Insulin Human Regular 25 unit/ Total Parenteral Nutrition/Amino Acids/Dextrose/ Fat Emulsion Intravenous 1,400 ml @ 58.333 mls/ hr TPN CONT 07/25/19 22:00 07/26/19 21:59 DC 07/25/19 22:24 58.333 MLS/HR Sodium Chloride 90 meq/Potassium Chloride 15 meq/ Potassium Phosphate 15 mmol/ Magnesium Sulfate 10 meq/Calcium Gluconate 15 meq/ Multivitamins 10 ml/Chromium/ Copper/Manganese/ Seleni/Zn 0.5 ml/ Total Parenteral Nutrition/Amino Acids/Dextrose/ Fat Emulsion Intravenous 1,400 ml @ 58.333 mls/ hr TPN CONT 07/12/19 22:00 07/13/19 21:59 DC 07/12/19 22:17 58.333 MLS/HR Sodium Chloride 90 meq/Potassium Chloride 15 meq/ Potassium Phosphate 15 mmol/ Magnesium Sulfate 10 meq/Calcium Gluconate 20 meq/ Multivitamins 10 ml/Chromium/ Copper/Manganese/ Seleni/Zn 0.5 ml/ Total Parenteral Nutrition/Amino Acids/Dextrose/ Fat Emulsion Intravenous 1,200 ml @ 50 mls/hr TPN CONT 07/10/19 22:00 07/10/19 14:17 DC Sodium Chloride 90 meq/Potassium Chloride 15 meq/ Potassium Phosphate 18 mmol/ Magnesium Sulfate 8 meq/Calcium Gluconate 15 meq/ Multivitamins 10 ml/Chromium/ Copper/Manganese/ Seleni/Zn 0.5 ml/ Insulin Human Regular 10 unit/ Total Parenteral Nutrition/Amino Acids/Dextrose/ Fat Emulsion Intravenous 1,400 ml @ 58.333 mls/ hr TPN CONT 07/15/19 22:00 07/16/19 21:59 DC 07/15/19 21:43 58.333 MLS/HR Sodium Chloride 90 meq/Potassium Chloride 15 meq/ Potassium Phosphate 18 mmol/ Magnesium Sulfate 8 meq/Calcium Gluconate 15 meq/ Multivitamins 10 ml/Chromium/ Copper/Manganese/ Seleni/Zn 0.5 ml/ Insulin Human Regular 15 unit/ Total Parenteral Nutrition/Amino Acids/Dextrose/ Fat Emulsion Intravenous 1,400 ml @ 58.333 mls/ hr TPN CONT 07/18/19 22:00 07/19/19 21:59 DC 07/18/19 21:47 58.333 MLS/HR Sodium Chloride 90 meq/Potassium Chloride 15 meq/ Potassium Phosphate 18 mmol/ Magnesium Sulfate 8 meq/Calcium Gluconate 15 meq/ Multivitamins 10 ml/Chromium/ Copper/Manganese/ Seleni/Zn 0.5 ml/ Insulin Human Regular 20 unit/ Total Parenteral Nutrition/Amino Acids/Dextrose/ Fat Emulsion Intravenous 1,400 ml @ 58.333 mls/ hr TPN CONT 07/21/19 22:00 07/22/19 21:59 DC 07/21/19 22:45 58.333 MLS/HR Sodium Chloride 90 meq/Potassium Chloride 15 meq/ Potassium Phosphate 18 mmol/ Magnesium Sulfate 8 meq/Calcium Gluconate 15 meq/ Multivitamins 10 ml/Chromium/ Copper/Manganese/ Seleni/Zn 0.5 ml/ Total Parenteral Nutrition/Amino Acids/Dextrose/ Fat Emulsion Intravenous 1,400 ml @ 58.333 mls/ hr TPN CONT 07/14/19 22:00 07/15/19 21:59 DC 07/14/19 22:00 58.333 MLS/HR Sodium Chloride 90 meq/Potassium Phosphate 5 mmol/ Magnesium Sulfate 12 meq/Calcium Gluconate 15 meq/ Multivitamins 10 ml/Chromium/ Copper/Manganese/ Seleni/Zn 0.5 ml/ Insulin Human Regular 30 unit/ Total Parenteral Nutrition/Amino Acids/Dextrose/ Fat Emulsion Intravenous 1,400 ml @ 58.333 mls/ hr TPN CONT 07/28/19 22:00 07/29/19 21:59 07/28/19 22:08 58.333 MLS/HR Succinylcholine Chloride (Anectine) 120 mg 1X ONCE 07/11/19 08:30 07/11/19 08:31 DC 07/11/19 08:34 120 MG Labs: Lab Laboratory Tests Test 07/28/19 14:50 07/28/19 18:30 07/29/19 00:21 07/29/19 06:00 Glucose (Fingerstick) 157 mg/dL (70-99) 189 mg/dL (70-99) 218 mg/dL (70-99) White Blood Count 13.1 x10^3/uL (4.0-11.0) Red Blood Count 2.32 x10^6/uL (3.50-5.40) Hemoglobin 7.4 g/dL (12.0-15.5) Hematocrit 23.1 % (36.0-47.0) Mean Corpuscular Volume 100 fL (79-100) Mean Corpuscular Hemoglobin 32 pg (25-35) Mean Corpuscular Hemoglobin Concent 32 g/dL (31-37) Red Cell Distribution Width 19.5 % (11.5-14.5) Platelet Count 341 x10^3/uL (140-400) Neutrophils (%) (Auto) 60 % (31-73) Lymphocytes (%) (Auto) 17 % (24-48) Monocytes (%) (Auto) 13 % (0-9) Eosinophils (%) (Auto) 9 % (0-3) Basophils (%) (Auto) 1 % (0-3) Neutrophils # (Auto) 7.9 x10^3/uL (1.8-7.7) Lymphocytes # (Auto) 2.3 x10^3/uL (1.0-4.8) Monocytes # (Auto) 1.7 x10^3/uL (0.0-1.1) Eosinophils # (Auto) 1.1 x10^3/uL (0.0-0.7) Basophils # (Auto) 0.1 x10^3/uL (0.0-0.2) Sodium Level 137 mmol/L (136-145) Potassium Level 3.8 mmol/L (3.5-5.1) Chloride Level 99 mmol/L (98-107) Carbon Dioxide Level 30 mmol/L (21-32) Anion Gap 8 (6-14) Blood Urea Nitrogen 49 mg/dL (7-20) Creatinine 2.3 mg/dL (0.6-1.0) Estimated GFR (Cockcroft-Gault) 22.5 Glucose Level 209 mg/dL (70-99) Calcium Level 8.4 mg/dL (8.5-10.1) Phosphorus Level 2.6 mg/dL (2.6-4.7) Albumin 3.0 g/dL (3.4-5.0) Test 07/29/19 09:00 O2 Saturation 95 % (92-99) Arterial Blood pH 7.43 (7.35-7.45) Arterial Blood pCO2 at Patient Temp 44 mmHg (35-46) Arterial Blood pO2 at Patient Temp 81 mmHg (75-108) Arterial Blood HCO3 28 mmol/L (21-28) Arterial Blood Base Excess 4 mmol/L (-3-3) FiO2 35% vent Objective: Assessment: FEVER again Acute pancreatitis with persistent necrosis CT a/p 07/27 Increased ascites. 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 Leucocytosis improving JUANA,Hyperkalemia, Metabolic acidosis on HD Acute hypoxic resp failure ,bilateral pleural effusion and atelectasis hypocalcemia Prediabetes HTN s/p trach Plan: Plan of Care cont merrem 07/26;was on cefepime and flagyl DC Daptomycin (07/12), start zyvox cont micafungin repeat ct 07/27 noted, Gen surgery following repeat ua and uc repeat bc f/u cults Maintain aspiration precautions COVID-19 neg, 07/13 C diff negative 07/10 Lt IJ DC'd Critically ill D/W YUNIOR CARRILLO MD Jul 29, 2019 10:04
--- NOTE | 2019-07-29 10:47 | PDOC ---
SUBJECTIVE ROS sedated and intubated OBJECTIVE Vital Signs Vital Signs Date Time Temp Pulse Resp B/P (MAP) Pulse Ox O2 Delivery O2 Flow Rate FiO2 07/29/19 10:00 92 18 107/51 (69) 98 Ventilator 07/29/19 08:00 100.1 100.1 I & 0 Intake and Output 07/29/19 07:00 Intake Total 2354 ml Output Total 390 ml Balance 1964 ml Intake Oral 0 ml IV Total 2354 ml Output Urine Total 340 ml Gastric Drainage Total 50 ml PHYSICAL EXAM Physical Exam GENERAL: On MV HEENT om moist NECK: Trach + LUNGS: Diminished aeration bases HEART: S1, S2, regular ABDOMEN: Distended, hypoactive BS, Rectal tube in place : Lind EXTREMITIES: Generalized edema, some mottling DERMATOLOGIC: No generalized rash. CENTRAL NERVOUS SYSTEM: Sedated RIJ Temp HDC DIAGNOSIS/ASSESSMENT Assessment & Plan ARF-- ATN, Off CRRT Was getting Daily HD for UF , Lost weight, stable Vol status TTS schedule now ,No Renal recovery yet , Monitor Anemia- per primary Currently on HIRAM Anasarca due to 3rd spacing , wt down Hyperkalemia- resolved AC Pancreatitis, early developing necrosis No intervention per GS CT SCAN 07/27 -. 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 Acute hypoxic resp failure ,bilateral pleural effusion On MV Persistent pleural effusions and atelectasis in the lung bases. hypocalcemia - stable HTN- Hypotensive , pressors as indicated COVID-19 neg, 07/13 COMMENT/RELEVANT DATA Meds Current Medications Medications (Trade) Dose Ordered Sig/Yvon Start Time Stop Time Status Last Admin Dose Admin Acetaminophen (Tylenol Supp) 650 mg PRN Q6HRS PRN 07/12/19 10:30 07/28/19 22:30 650 MG Acetaminophen (Tylenol) 650 mg PRN Q6HRS PRN 07/09/19 03:36 07/14/19 07:35 650 MG Albumin Human 200 ml @ 200 mls/hr 1X PRN PRN 07/28/19 08:00 07/28/19 13:59 DC 07/28/19 09:30 200 MLS/HR Albuterol Sulfate (Ventolin Neb Soln) 2.5 mg 1X ONCE 07/05/19 22:30 07/05/19 22:31 DC 07/06/19 00:56 2.5 MG Alteplase, Recombinant (Cathflo For Central Catheter Clearance) 1 mg 1X ONCE 07/19/19 22:00 07/19/19 22:01 DC 07/19/19 22:05 1 MG Artificial Tears (Artificial Tears) 1 drop PRN Q1HR PRN 07/11/19 08:15 Atenolol (Tenormin) 100 mg DAILY 07/05/19 09:00 07/04/19 20:08 DC Atropine Sulfate (ATROPINE 0.5mg SYRINGE) 0.5 mg PRN Q5MIN PRN 07/21/19 08:15 Benzocaine (Hurricaine One) 1 spray 1X ONCE 07/08/19 14:30 07/08/19 14:31 DC 07/08/19 16:38 1 SPRAY Bupivacaine HCl/ Epinephrine Bitart (Sensorcain-Epi 0.5%-1:522276 Mpf) 30 ml STK-MED ONCE 07/25/19 11:00 07/25/19 11:01 DC 07/25/19 11:44 1 ML Calcium Carbonate/ Glycine (Tums) 500 mg PRN AFTMEALHC PRN 07/06/19 17:45 Calcium Chloride 1000 mg/Sodium Chloride 110 ml @ 220 mls/hr 1X ONCE 07/05/19 22:30 07/05/19 22:59 DC 07/05/19 22:11 220 MLS/HR Calcium Chloride 3000 mg/Sodium Chloride 1,030 ml @ 50 mls/hr [id number] 07/07/19 08:00 07/09/19 15:23 DC 07/09/19 02:17 50 MLS/HR Calcium Gluconate (Calcium Gluconate) 2,000 mg 1X ONCE 07/07/19 02:15 07/07/19 02:16 DC 07/07/19 02:19 2,000 MG Calcium Gluconate 1000 mg/Sodium Chloride 110 ml @ 220 mls/hr 1X ONCE 07/06/19 03:30 07/06/19 03:59 DC 07/06/19 03:21 220 MLS/HR Calcium Gluconate 2000 mg/Sodium Chloride 120 ml @ 220 mls/hr 1X ONCE 07/06/19 07:30 07/06/19 08:02 DC 07/06/19 09:05 220 MLS/HR Cefepime HCl (Maxipime) 2 gm Q12HR 07/13/19 09:00 07/27/19 09:58 DC 07/26/19 20:56 2 GM Cellulose (Surgicel Fibrillar 1x2) 1 each STK-MED ONCE 07/25/19 11:00 07/25/19 11:01 DC Cellulose (Surgicel Hemostat 4x8) 1 each STK-MED ONCE 07/25/19 11:55 07/25/19 11:56 DC 07/25/19 11:44 1 EACH Daptomycin 500 mg/ Sodium Chloride 50 ml @ 100 mls/hr Q48H 07/13/19 08:30 07/29/19 10:07 DC 07/29/19 09:57 100 MLS/HR Dexmedetomidine HCl 400 mcg/ Sodium Chloride 100 ml @ 0 mls/hr CONT PRN 07/21/19 08:15 07/29/19 08:26 22.2 MLS/HR Dextrose (Dextrose 50%-Water Syringe) 12.5 gm PRN Q15MIN PRN 07/04/19 09:30 Digoxin (Lanoxin) 125 mcg 1X ONCE 07/07/19 18:00 07/07/19 18:01 DC 07/07/19 17:10 125 MCG Diphenhydramine HCl (Benadryl) 25 mg 1X PRN PRN 07/27/19 08:00 07/28/19 07:59 DC Etomidate (Amidate) 8 mg 1X ONCE 07/11/19 08:30 07/11/19 08:31 DC 07/11/19 08:33 8 MG Fentanyl Citrate (Fentanyl 2ml Vial) 50 mcg PRN Q5MIN PRN 07/25/19 07:00 07/26/19 06:59 DC Furosemide (Lasix) 20 mg 1X ONCE 07/21/19 08:15 07/21/19 08:16 DC 07/21/19 08:19 20 MG Heparin Sodium (Porcine) (Hep Lock Adult) 500 unit STK-MED ONCE 07/26/19 09:29 07/26/19 09:30 DC Heparin Sodium (Porcine) (Heparin Sodium) 5,000 unit Q12HR 07/22/19 21:00 07/29/19 09:00 5,000 UNIT Hydromorphone HCl (Dilaudid) 1 mg PRN Q3HRS PRN 07/05/19 12:00 07/19/19 00:25 DC 07/11/19 05:13 1 MG Info (CONTRAST GIVEN -- Rx MONITORING) 1 each PRN DAILY PRN 07/18/19 11:45 07/20/19 11:44 DC Info (Icu Electrolyte Protocol) 1 ea CONT PRN PRN 07/17/19 13:15 Info (PHARMACY MONITORING -- do not chart) 1 each PRN DAILY PRN 07/28/19 08:15 UNV Info (Tpn Per Pharmacy) 1 each PRN DAILY PRN 07/06/19 12:30 UNV Insulin Human Lispro (HumaLOG) 0-9 UNITS Q6HRS 07/04/19 09:30 07/29/19 07:52 5 UNITS Insulin Human Regular (HumuLIN R VIAL) 5 unit 1X ONCE 07/05/19 22:30 07/05/19 22:31 DC 07/05/19 22:14 5 UNIT Iohexol (Omnipaque 240 Mg/ml) 30 ml 1X ONCE 07/18/19 11:30 07/18/19 11:33 DC 07/18/19 11:30 30 ML Iohexol (Omnipaque 300 Mg/ml) 60 ml 1X ONCE 07/05/19 17:00 07/05/19 17:01 DC 07/05/19 17:20 60 ML Iohexol (Omnipaque 350 Mg/ml) 90 ml 1X ONCE 07/04/19 03:30 07/04/19 03:31 DC 07/04/19 03:25 90 ML Ketorolac Tromethamine (Toradol 30mg Vial) 30 mg 1X ONCE 07/04/19 03:00 07/04/19 03:01 DC 07/04/19 02:54 30 MG Lidocaine HCl (Buffered Lidocaine 1%) 6 ml 1X ONCE 07/21/19 09:00 07/21/19 09:06 DC 07/21/19 09:05 6 ML Lidocaine HCl (Glydo (Lidocaine) Jelly) 1 ramu 1X ONCE 07/08/19 14:30 07/08/19 14:31 DC 07/08/19 16:38 1 RAMU Lidocaine HCl (Xylocaine-Mpf 1% 2ml Vial) 2 ml PRN 1X PRN 07/25/19 07:00 07/26/19 06:59 DC Linezolid/Dextrose 300 ml @ 300 mls/hr Q12HR 07/29/19 11:00 Lorazepam (Ativan Inj) 1 mg PRN Q4HRS PRN 07/07/19 09:00 07/11/19 00:34 1 MG Magnesium Sulfate 50 ml @ 25 mls/hr PRN DAILY PRN 07/24/19 09:15 Meropenem 1 gm/ Sodium Chloride 100 ml @ 200 mls/hr Q8HRS 07/05/19 20:00 07/06/19 08:48 DC 07/06/19 05:45 200 MLS/HR Meropenem 500 mg/ Sodium Chloride 50 ml @ 100 mls/hr Q12H 07/27/19 10:00 07/28/19 22:12 100 MLS/HR Metoprolol Tartrate (Lopressor Vial) 5 mg Q6HRS 07/05/19 10:15 07/16/19 08:48 DC 07/14/19 00:12 5 MG Metronidazole 100 ml @ 100 mls/hr Q6HRS 07/11/19 08:30 07/27/19 09:58 DC 07/27/19 06:26 100 MLS/HR Micafungin Sodium 100 mg/Dextrose 100 ml @ 100 mls/hr Q24H 07/11/19 09:00 07/29/19 08:05 100 MLS/HR Midazolam HCl (Versed) 5 mg 1X ONCE 07/11/19 08:30 07/11/19 08:31 DC Midazolam HCl 100 mg/Sodium Chloride 100 ml @ 7 mls/hr CONT PRN 07/16/19 16:00 07/27/19 15:35 7 MLS/HR Midazolam HCl 50 mg/Sodium Chloride 50 ml @ 0 mls/hr CONT PRN 07/11/19 08:15 07/16/19 15:59 DC 07/14/19 22:39 7 MLS/HR Morphine Sulfate (Morphine Sulfate) 2 mg PRN Q2HR PRN 07/04/19 05:00 07/05/19 14:15 DC 07/05/19 12:26 2 MG Multi-Ingred Cream/Lotion/Oil/ Oint (Artificial Tears Eye Ointment) 1 ramu PRN Q1HR PRN 07/13/19 17:30 07/22/19 11:05 1 RAMU Norepinephrine Bitartrate 8 mg/ Dextrose 258 ml @ 17.299 mls/ hr CONT PRN 07/05/19 15:30 07/28/19 12:39 17.299 MLS/HR Ondansetron HCl (Zofran) 4 mg PRN Q6HRS PRN 07/25/19 07:00 07/26/19 06:59 DC Pantoprazole Sodium (PROTONIX VIAL for IV PUSH) 40 mg DAILYAC 07/04/19 11:30 07/29/19 08:05 40 MG Piperacillin Sod/ Tazobactam Sod 4.5 gm/Sodium Chloride 100 ml @ 200 mls/hr 1X ONCE 07/04/19 06:00 07/04/19 06:29 DC 07/04/19 05:44 200 MLS/HR Potassium Chloride 15 meq/ Bicarbonate Dialysis Soln w/ out KCl 5,007.5 ml @ 1,000 mls/ hr Q5H1M 07/17/19 20:00 07/21/19 13:08 DC 07/20/19 18:14 1,000 MLS/HR Potassium Chloride 20 meq/ Bicarbonate Dialysis Soln w/ out KCl 5,010 ml @ 1,000 mls/hr Q5H1M 07/13/19 16:00 07/17/19 19:59 DC 07/17/19 14:54 1,000 MLS/HR Potassium Chloride/Water 100 ml @ 100 mls/hr Q1H 07/12/19 11:00 07/12/19 12:59 DC 07/12/19 12:12 100 MLS/HR Potassium Phosphate 20 mmol/ Sodium Chloride 106.6667 ml @ 51.667 m... 1X ONCE 07/13/19 13:00 07/13/19 15:03 DC 07/13/19 12:51 51.667 MLS/HR Prochlorperazine Edisylate (Compazine) 5 mg PACU PRN PRN 07/25/19 07:00 07/26/19 06:59 DC Propofol 20 ml @ As Directed STK-MED ONCE 07/25/19 11:07 07/25/19 11:07 DC Ringer's Solution 1,000 ml @ 30 mls/hr Q24H 07/25/19 07:00 07/25/19 18:59 DC Sevoflurane (Ultane) 60 ml STK-MED ONCE 07/25/19 12:46 07/25/19 12:46 DC Sodium Bicarbonate 50 meq/Sodium Chloride 1,050 ml @ 75 mls/hr Q14H 07/06/19 07:30 07/11/19 10:28 DC 07/10/19 21:10 75 MLS/HR Sodium Chloride (Normal Saline Flush) 10 ml 1X PRN PRN 07/22/19 07:30 07/23/19 07:29 DC Sodium Chloride 90 meq/Calcium Gluconate 10 meq/ Multivitamins 10 ml/Chromium/ Copper/Manganese/ Seleni/Zn 0.5 ml/ Total Parenteral Nutrition/Amino Acids/Dextrose/ Fat Emulsion Intravenous 1,512 ml @ 63 mls/hr TPN CONT 07/06/19 22:00 07/07/19 21:59 DC 07/06/19 22:06 63 MLS/HR Sodium Chloride 90 meq/Calcium Gluconate 10 meq/ Multivitamins 10 ml/Chromium/ Copper/Manganese/ Seleni/Zn 1 ml/ Total Parenteral Nutrition/Amino Acids/Dextrose/ Fat Emulsion Intravenous 55.005 ml @ 2.292 mls/hr TPN CONT 07/06/19 22:00 07/06/19 12:33 DC Sodium Chloride 90 meq/Magnesium Sulfate 10 meq/ Calcium Gluconate 20 meq/ Multivitamins 10 ml/Chromium/ Copper/Manganese/ Seleni/Zn 0.5 ml/ Total Parenteral Nutrition/Amino Acids/Dextrose/ Fat Emulsion Intravenous 1,512 ml @ 63 mls/hr TPN CONT 07/07/19 22:00 07/08/19 21:59 DC 07/07/19 22:25 63 MLS/HR Sodium Chloride 90 meq/Magnesium Sulfate 12 meq/ Calcium Gluconate 15 meq/ Multivitamins 10 ml/Chromium/ Copper/Manganese/ Seleni/Zn 0.5 ml/ Insulin Human Regular 25 unit/ Total Parenteral Nutrition/Amino Acids/Dextrose/ Fat Emulsion Intravenous 1,400 ml @ 58.333 mls/ hr TPN CONT 07/27/19 22:00 07/28/19 21:59 DC 07/27/19 21:41 58.333 MLS/HR Sodium Chloride 90 meq/Potassium Chloride 15 meq/ Magnesium Sulfate 12 meq/Calcium Gluconate 15 meq/ Multivitamins 10 ml/Chromium/ Copper/Manganese/ Seleni/Zn 0.5 ml/ Insulin Human Regular 25 unit/ Total Parenteral Nutrition/Amino Acids/Dextrose/ Fat Emulsion Intravenous 1,400 ml @ 58.333 mls/ hr TPN CONT 07/26/19 22:00 07/27/19 21:59 DC 07/26/19 22:13 58.333 MLS/HR Sodium Chloride 90 meq/Potassium Chloride 15 meq/ Potassium Phosphate 10 mmol/ Magnesium Sulfate 8 meq/Calcium Gluconate 15 meq/ Multivitamins 10 ml/Chromium/ Copper/Manganese/ Seleni/Zn 0.5 ml/ Insulin Human Regular 25 unit/ Total Parenteral Nutrition/Amino Acids/Dextrose/ Fat Emulsion Intravenous 1,400 ml @ 58.333 mls/ hr TPN CONT 07/24/19 22:00 07/25/19 21:59 DC 07/24/19 21:20 58.333 MLS/HR Sodium Chloride 90 meq/Potassium Chloride 15 meq/ Potassium Phosphate 10 mmol/ Magnesium Sulfate 10 meq/Calcium Gluconate 20 meq/ Multivitamins 10 ml/Chromium/ Copper/Manganese/ Seleni/Zn 0.5 ml/ Total Parenteral Nutrition/Amino Acids/Dextrose/ Fat Emulsion Intravenous 1,400 ml @ 58.333 mls/ hr TPN CONT 07/11/19 22:00 07/12/19 21:59 DC 07/11/19 21:42 58.333 MLS/HR Sodium Chloride 90 meq/Potassium Chloride 15 meq/ Potassium Phosphate 10 mmol/ Magnesium Sulfate 12 meq/Calcium Gluconate 15 meq/ Multivitamins 10 ml/Chromium/ Copper/Manganese/ Seleni/Zn 0.5 ml/ Insulin Human Regular 25 unit/ Total Parenteral Nutrition/Amino Acids/Dextrose/ Fat Emulsion Intravenous 1,400 ml @ 58.333 mls/ hr TPN CONT 07/25/19 22:00 07/26/19 21:59 DC 07/25/19 22:24 58.333 MLS/HR Sodium Chloride 90 meq/Potassium Chloride 15 meq/ Potassium Phosphate 15 mmol/ Magnesium Sulfate 10 meq/Calcium Gluconate 15 meq/ Multivitamins 10 ml/Chromium/ Copper/Manganese/ Seleni/Zn 0.5 ml/ Total Parenteral Nutrition/Amino Acids/Dextrose/ Fat Emulsion Intravenous 1,400 ml @ 58.333 mls/ hr TPN CONT 07/12/19 22:00 07/13/19 21:59 DC 07/12/19 22:17 58.333 MLS/HR Sodium Chloride 90 meq/Potassium Chloride 15 meq/ Potassium Phosphate 15 mmol/ Magnesium Sulfate 10 meq/Calcium Gluconate 20 meq/ Multivitamins 10 ml/Chromium/ Copper/Manganese/ Seleni/Zn 0.5 ml/ Total Parenteral Nutrition/Amino Acids/Dextrose/ Fat Emulsion Intravenous 1,200 ml @ 50 mls/hr TPN CONT 07/10/19 22:00 07/10/19 14:17 DC Sodium Chloride 90 meq/Potassium Chloride 15 meq/ Potassium Phosphate 18 mmol/ Magnesium Sulfate 8 meq/Calcium Gluconate 15 meq/ Multivitamins 10 ml/Chromium/ Copper/Manganese/ Seleni/Zn 0.5 ml/ Insulin Human Regular 10 unit/ Total Parenteral Nutrition/Amino Acids/Dextrose/ Fat Emulsion Intravenous 1,400 ml @ 58.333 mls/ hr TPN CONT 07/15/19 22:00 07/16/19 21:59 DC 07/15/19 21:43 58.333 MLS/HR Sodium Chloride 90 meq/Potassium Chloride 15 meq/ Potassium Phosphate 18 mmol/ Magnesium Sulfate 8 meq/Calcium Gluconate 15 meq/ Multivitamins 10 ml/Chromium/ Copper/Manganese/ Seleni/Zn 0.5 ml/ Insulin Human Regular 15 unit/ Total Parenteral Nutrition/Amino Acids/Dextrose/ Fat Emulsion Intravenous 1,400 ml @ 58.333 mls/ hr TPN CONT 07/18/19 22:00 07/19/19 21:59 DC 07/18/19 21:47 58.333 MLS/HR Sodium Chloride 90 meq/Potassium Chloride 15 meq/ Potassium Phosphate 18 mmol/ Magnesium Sulfate 8 meq/Calcium Gluconate 15 meq/ Multivitamins 10 ml/Chromium/ Copper/Manganese/ Seleni/Zn 0.5 ml/ Insulin Human Regular 20 unit/ Total Parenteral Nutrition/Amino Acids/Dextrose/ Fat Emulsion Intravenous 1,400 ml @ 58.333 mls/ hr TPN CONT 07/21/19 22:00 07/22/19 21:59 DC 07/21/19 22:45 58.333 MLS/HR Sodium Chloride 90 meq/Potassium Chloride 15 meq/ Potassium Phosphate 18 mmol/ Magnesium Sulfate 8 meq/Calcium Gluconate 15 meq/ Multivitamins 10 ml/Chromium/ Copper/Manganese/ Seleni/Zn 0.5 ml/ Total Parenteral Nutrition/Amino Acids/Dextrose/ Fat Emulsion Intravenous 1,400 ml @ 58.333 mls/ hr TPN CONT 07/14/19 22:00 07/15/19 21:59 DC 07/14/19 22:00 58.333 MLS/HR Sodium Chloride 90 meq/Potassium Phosphate 5 mmol/ Magnesium Sulfate 12 meq/Calcium Gluconate 15 meq/ Multivitamins 10 ml/Chromium/ Copper/Manganese/ Seleni/Zn 0.5 ml/ Insulin Human Regular 30 unit/ Total Parenteral Nutrition/Amino Acids/Dextrose/ Fat Emulsion Intravenous 1,400 ml @ 58.333 mls/ hr TPN CONT 07/28/19 22:00 07/29/19 21:59 07/28/19 22:08 58.333 MLS/HR Succinylcholine Chloride (Anectine) 120 mg 1X ONCE 07/11/19 08:30 07/11/19 08:31 DC 07/11/19 08:34 120 MG Lab Laboratory Tests Test 07/28/19 14:50 07/28/19 18:30 07/29/19 00:21 07/29/19 06:00 Glucose (Fingerstick) 157 mg/dL (70-99) 189 mg/dL (70-99) 218 mg/dL (70-99) White Blood Count 13.1 x10^3/uL (4.0-11.0) Red Blood Count 2.32 x10^6/uL (3.50-5.40) Hemoglobin 7.4 g/dL (12.0-15.5) Hematocrit 23.1 % (36.0-47.0) Mean Corpuscular Volume 100 fL (79-100) Mean Corpuscular Hemoglobin 32 pg (25-35) Mean Corpuscular Hemoglobin Concent 32 g/dL (31-37) Red Cell Distribution Width 19.5 % (11.5-14.5) Platelet Count 341 x10^3/uL (140-400) Neutrophils (%) (Auto) 60 % (31-73) Lymphocytes (%) (Auto) 17 % (24-48) Monocytes (%) (Auto) 13 % (0-9) Eosinophils (%) (Auto) 9 % (0-3) Basophils (%) (Auto) 1 % (0-3) Neutrophils # (Auto) 7.9 x10^3/uL (1.8-7.7) Lymphocytes # (Auto) 2.3 x10^3/uL (1.0-4.8) Monocytes # (Auto) 1.7 x10^3/uL (0.0-1.1) Eosinophils # (Auto) 1.1 x10^3/uL (0.0-0.7) Basophils # (Auto) 0.1 x10^3/uL (0.0-0.2) Sodium Level 137 mmol/L (136-145) Potassium Level 3.8 mmol/L (3.5-5.1) Chloride Level 99 mmol/L (98-107) Carbon Dioxide Level 30 mmol/L (21-32) Anion Gap 8 (6-14) Blood Urea Nitrogen 49 mg/dL (7-20) Creatinine 2.3 mg/dL (0.6-1.0) Estimated GFR (Cockcroft-Gault) 22.5 Glucose Level 209 mg/dL (70-99) Calcium Level 8.4 mg/dL (8.5-10.1) Phosphorus Level 2.6 mg/dL (2.6-4.7) Albumin 3.0 g/dL (3.4-5.0) Test 07/29/19 09:00 O2 Saturation 95 % (92-99) Arterial Blood pH 7.43 (7.35-7.45) Arterial Blood pCO2 at Patient Temp 44 mmHg (35-46) Arterial Blood pO2 at Patient Temp 81 mmHg (75-108) Arterial Blood HCO3 28 mmol/L (21-28) Arterial Blood Base Excess 4 mmol/L (-3-3) FiO2 35% vent Results All relevant outside records, renal labs, imaging studies, telemetry/EKG's were reviewed. VERENA KENT MD Jul 29, 2019 10:46
[2019-07-29] MEDS: MEROPENEM 500 MG in IV NORMAL SALINE 50ML 50 ML IV SCH ×2 (11:00→21:49)
[2019-07-29] MEDS: TPN PER PHARMACY MC PRN (11:58)
--- NOTE | 2019-07-29 11:59 | NUR ---
Pharmacy TPN Dosing Note S: SCOTT AVILA is a 48 year old F Currently receiving Central Continuous TPN started 07/06/19 B:Pertinent PMH: Necrotizing pancreatitis Height: 5 feet, 8 inches Weight: 101.8 kg Current diet: NPO LABS: Sodium: 137 Potassium: 3.8 Chloride: 99 Calcium: 8.4 Corrected Calcium: 9.20 Magnesium: 2.1 CO2: 30 SCr: 2.3 Glucose: 209 Albumin: 3.0 AST: 47 ALT: 20 TPN FORMULA: TPN TYPE: Central Continuous AMINO ACIDS: 125 gm DEXTROSE: 195 gm LIPIDS: 20 gm SODIUM CHLORIDE: 90 mEq SODIUM ACETATE: -- mEq SODIUM PHOSPHATE: - mmol POTASSIUM CHLORIDE: - mEq POTASSIUM ACETATE: -- mEq POTASSIUM PHOSPHATE: 15 mmol MAGNESIUM: 12 mEq CALCIUM: 15 mEq INSULIN: 30 units MULTIPLE VITAMIN: 10 ml TRACE ELEMENTS: 0.5 ml(s) TPN PLAN: Triglycerides >400 - lipid content reduced to 20g/bag Phos trending down steadily, Kphos increased to 15mmol R: Continue TPN as written above. Will monitor electrolytes, glucose, and tolerance to TPN. PADMINI YOUNG [facility], 07/29/19 1740
--- NOTE | 2019-07-29 13:11 | PDOC ---
PROGRESS NOTES Assessment Assessment Respiratory failure. Seizure. Metabolic encephalopathy. Fever 102.7 degree, recurrent fever noted. Metabolic acidosis. Diffuse pulmonary infiltrate. Pleural effusion. Pancreatitis, necrotizing. Gallstone. Leukocytosis. Lymphopenia. Electrolytes imbalances. Hyperglycemia. DM. HTN. HLD. Anemia. Abnormal CXR. Obesity. Covid-19 still suspected. RECOMMENDATIONS/PLAN: Continue life support in CCU at the present time. Keppra if has further seizures. Treat medical diseases. OT/PT. EEG: No seizure activity. OBJECTIVE: Fever 100.6 degree before and now T 99.8 degree.. 07/28/19: No seizures reported over night. Past Medical History Cardiovascular: HTN, Hyperlipidemia Endocrine: Diabetes Family History Unobtainable. Social HistoryU not obtainable Allergies Coded Allergies: Codeine (Verified Allergy, Intermediate, rash, 07/04/19) ROS Unobtainable. NEUROLOGICAL EXAMINATION: Decreased responsiveness. Not oriented to time, place and person. PERRL. EOMI not active. CN: no acute focal findings. Muscle tone: Decreased. Muscle strength: No movements to stimuli. DTR: 1 UE, 2+ LE. Plantar reflex: Neutral response bilaterally Gait: not able to walk. Sensory exam: no response to stimuli.. Not able to access cerebellar signs. F-T-N test not performed due to decreased response. Patient examined in CCU. Objective Objective Vital Signs Date Time Temp Pulse Resp B/P (MAP) Pulse Ox O2 Delivery O2 Flow Rate FiO2 07/29/19 12:46 99 22 106/52 (70) 100 Ventilator 07/29/19 12:00 98.2 98.2 Intake and Output 07/29/19 06:59 Intake Total 2354 ml Output Total 390 ml Balance 1964 ml Intake Oral 0 ml IV Total 2354 ml Output Urine Total 340 ml Gastric Drainage Total 50 ml Vitals Signs Vitals VS - Last 72 Hours, by Label Date Time Temp Pulse Resp B/P (MAP) Pulse Ox O2 Delivery O2 Flow Rate FiO2 07/29/19 12:46 99 22 106/52 (70) 100 Ventilator 07/29/19 12:00 98.2 100 18 106/59 (75) 99 Ventilator 98.2 07/29/19 11:00 88 18 110/58 (75) 99 Ventilator 07/29/19 10:00 92 18 107/51 (69) 98 Ventilator 07/29/19 09:00 89 18 119/52 (74) 97 Ventilator 07/29/19 08:30 95 18 149/69 (95) 98 Ventilator 07/29/19 08:26 18 97 Ventilator 07/29/19 08:15 101 18 71/36 (48) 98 Ventilator 07/29/19 08:00 98 Ventilator 07/29/19 08:00 Mechanical Ventilator 07/29/19 08:00 100.1 88 18 118/57 (77) 98 Ventilator 100.1 07/29/19 07:51 18 98 Ventilator 07/29/19 07:00 90 18 121/61 (81) 98 Ventilator 07/29/19 06:00 92 18 120/58 (78) 98 Ventilator 07/29/19 05:00 88 18 101/58 (72) 98 Ventilator 07/29/19 04:05 98 Ventilator 07/29/19 04:00 Mechanical Ventilator 07/29/19 04:00 100.9 94 18 109/57 (74) 97 Ventilator 100.9 07/29/19 03:00 96 18 111/57 (75) 98 Ventilator 07/29/19 02:00 96 18 111/59 (76) 98 Ventilator 07/29/19 01:00 100 18 116/57 (76) 97 Ventilator 07/29/19 00:05 98 Ventilator 07/29/19 00:00 101.9 98 18 107/55 (72) 98 Ventilator 101.9 07/29/19 00:00 Mechanical Ventilator 07/28/19 23:00 96 18 100/52 (68) 98 Ventilator 07/28/19 22:15 100 18 114/53 (73) 97 Ventilator 07/28/19 22:00 101.2 100 18 130/58 (82) 97 Ventilator 101.2 07/28/19 21:00 102 18 118/58 (78) 97 Ventilator 07/28/19 20:06 98 Ventilator 07/28/19 20:00 100.9 98 18 122/65 (84) 98 Ventilator 100.9 07/28/19 20:00 Mechanical Ventilator 07/28/19 19:00 102 20 101/59 (73) 98 Ventilator 07/28/19 18:00 134 20 91/70 (77) 99 Ventilator 07/28/19 17:00 106 17 125/63 (83) 100 Ventilator 07/28/19 16:00 96 17 124/66 (85) 99 Ventilator 07/28/19 15:00 90 18 86/56 (66) 99 Ventilator 07/28/19 15:00 Mechanical Ventilator 07/28/19 14:48 100 Ventilator 07/28/19 14:30 99.4 98 18 112/56 (74) 100 Ventilator 99.4 07/28/19 13:00 94 18 106/64 (78) 100 Ventilator 07/28/19 12:15 96 18 110/56 (74) 100 Ventilator 07/28/19 12:09 100 Ventilator 07/28/19 10:56 Ventilator 07/28/19 10:26 98 07/28/19 08:08 98 Ventilator 07/28/19 08:00 99.8 95 18 94/53 (67) 97 Ventilator 99.8 07/28/19 08:00 Mechanical Ventilator 07/28/19 07:00 96 18 108/59 (75) 98 Ventilator Laboratory Laboratory Laboratory Tests Test 07/28/19 14:50 07/28/19 18:30 07/29/19 00:21 07/29/19 06:00 Glucose (Fingerstick) 157 mg/dL (70-99) 189 mg/dL (70-99) 218 mg/dL (70-99) White Blood Count 13.1 x10^3/uL (4.0-11.0) Red Blood Count 2.32 x10^6/uL (3.50-5.40) Hemoglobin 7.4 g/dL (12.0-15.5) Hematocrit 23.1 % (36.0-47.0) Mean Corpuscular Volume 100 fL (79-100) Mean Corpuscular Hemoglobin 32 pg (25-35) Mean Corpuscular Hemoglobin Concent 32 g/dL (31-37) Red Cell Distribution Width 19.5 % (11.5-14.5) Platelet Count 341 x10^3/uL (140-400) Neutrophils (%) (Auto) 60 % (31-73) Lymphocytes (%) (Auto) 17 % (24-48) Monocytes (%) (Auto) 13 % (0-9) Eosinophils (%) (Auto) 9 % (0-3) Basophils (%) (Auto) 1 % (0-3) Neutrophils # (Auto) 7.9 x10^3/uL (1.8-7.7) Lymphocytes # (Auto) 2.3 x10^3/uL (1.0-4.8) Monocytes # (Auto) 1.7 x10^3/uL (0.0-1.1) Eosinophils # (Auto) 1.1 x10^3/uL (0.0-0.7) Basophils # (Auto) 0.1 x10^3/uL (0.0-0.2) Sodium Level 137 mmol/L (136-145) Potassium Level 3.8 mmol/L (3.5-5.1) Chloride Level 99 mmol/L (98-107) Carbon Dioxide Level 30 mmol/L (21-32) Anion Gap 8 (6-14) Blood Urea Nitrogen 49 mg/dL (7-20) Creatinine 2.3 mg/dL (0.6-1.0) Estimated GFR (Cockcroft-Gault) 22.5 Glucose Level 209 mg/dL (70-99) Calcium Level 8.4 mg/dL (8.5-10.1) Phosphorus Level 2.6 mg/dL (2.6-4.7) Albumin 3.0 g/dL (3.4-5.0) Test 07/29/19 09:00 07/29/19 12:29 O2 Saturation 95 % (92-99) Arterial Blood pH 7.43 (7.35-7.45) Arterial Blood pCO2 at Patient Temp 44 mmHg (35-46) Arterial Blood pO2 at Patient Temp 81 mmHg (75-108) Arterial Blood HCO3 28 mmol/L (21-28) Arterial Blood Base Excess 4 mmol/L (-3-3) FiO2 35% vent Glucose (Fingerstick) 247 mg/dL (70-99) Microbiology 07/24/19 Blood Culture - Final, Complete NO GROWTH AFTER 5 DAYS 07/23/19 Urine Culture - Final, Complete 07/23/19 Urine Culture Result 1 (ALEXANDRA) - Final, Complete Medication Medications Current Medications Linezolid/Dextrose 300 ml @ 300 mls/hr Q12HR IV Last administered on 07/29/19at 12:14; Start 07/29/19 at 11:00 Sodium Chloride 90 meq/Potassium Phosphate 15 mmol/ Magnesium Sulfate 12 meq/Calcium Gluconate 15 meq/ Multivitamins 10 ml/Chromium/ Copper/Manganese/ Seleni/Zn 0.5 ml/ Insulin Human Regular 30 unit/ Total Parenteral Nutrition/Amino Acids/Dextrose/ Fat Emulsion Intravenous 1,400 ml @ 58.333 mls/ hr TPN CONT IV ; Start 07/29/19 at 22:00; Stop 07/30/19 at 21:59 Sodium Chloride 90 meq/Potassium Phosphate 5 mmol/ Magnesium Sulfate 12 meq/Calcium Gluconate 15 meq/ Multivitamins 10 ml/Chromium/ Copper/Manganese/ Seleni/Zn 0.5 ml/ Insulin Human Regular 30 unit/ Total Parenteral Nutrition/Amino Acids/Dextrose/ Fat Emulsion Intravenous 1,400 ml @ 58.333 mls/ hr TPN CONT IV Last administered on 07/28/19at 22:08; Start 07/28/19 at 22:00; Stop 07/29/19 at 21:59 Comment Review of Relevant I have reviewed the following items kolby (where applicable) has been applied. ZANDER ZUÑIGA MD Jul 29, 2019 13:11
[2019-07-29] MEDS: NOREPINEPHRINE VIAL 8 MG in IV DEXTROSE 5% 250 ML IV PRN (13:31)
--- NOTE | 2019-07-29 13:46 | PDOC ---
SURGICAL PROGRESS NOTE Subjective Pt intubated, less pulm support Vital Signs Vital Signs Date Time Temp Pulse Resp B/P (MAP) Pulse Ox O2 Delivery O2 Flow Rate FiO2 07/29/19 12:46 99 22 106/52 (70) 100 Ventilator 07/29/19 12:00 98.2 98.2 I&O Intake and Output 07/29/19 07:00 Intake Total 2354 ml Output Total 390 ml Balance 1964 ml Intake Oral 0 ml IV Total 2354 ml Output Urine Total 340 ml Gastric Drainage Total 50 ml General: No acute distress Abdomen: Soft, No tenderness Labs Laboratory Tests Test 07/27/19 17:45 07/28/19 00:03 07/28/19 06:15 07/28/19 08:00 Glucose (Fingerstick) 197 mg/dL (70-99) 206 mg/dL (70-99) 203 mg/dL (70-99) White Blood Count 12.0 x10^3/uL (4.0-11.0) Red Blood Count 2.30 x10^6/uL (3.50-5.40) Hemoglobin 7.4 g/dL (12.0-15.5) Hematocrit 22.9 % (36.0-47.0) Mean Corpuscular Volume 100 fL (79-100) Mean Corpuscular Hemoglobin 32 pg (25-35) Mean Corpuscular Hemoglobin Concent 32 g/dL (31-37) Red Cell Distribution Width 20.1 % (11.5-14.5) Platelet Count 328 x10^3/uL (140-400) Sodium Level 137 mmol/L (136-145) Potassium Level 3.7 mmol/L (3.5-5.1) Chloride Level 99 mmol/L (98-107) Carbon Dioxide Level 29 mmol/L (21-32) Anion Gap 9 (6-14) Blood Urea Nitrogen 51 mg/dL (7-20) Creatinine 2.2 mg/dL (0.6-1.0) Estimated GFR (Cockcroft-Gault) 23.7 Glucose Level 211 mg/dL (70-99) Calcium Level 8.7 mg/dL (8.5-10.1) Phosphorus Level 3.6 mg/dL (2.6-4.7) Magnesium Level 2.1 mg/dL (1.8-2.4) Albumin 2.6 g/dL (3.4-5.0) Triglycerides Level 436 mg/dL (0-150) O2 Saturation 92 % (92-99) Arterial Blood pH 7.40 (7.35-7.45) Arterial Blood pCO2 at Patient Temp 45 mmHg (35-46) Arterial Blood pO2 at Patient Temp 69 mmHg (75-108) Arterial Blood HCO3 27 mmol/L (21-28) Arterial Blood Base Excess 2 mmol/L (-3-3) FiO2 35 Test 07/28/19 14:50 07/28/19 18:30 07/29/19 00:21 07/29/19 06:00 Glucose (Fingerstick) 157 mg/dL (70-99) 189 mg/dL (70-99) 218 mg/dL (70-99) White Blood Count 13.1 x10^3/uL (4.0-11.0) Red Blood Count 2.32 x10^6/uL (3.50-5.40) Hemoglobin 7.4 g/dL (12.0-15.5) Hematocrit 23.1 % (36.0-47.0) Mean Corpuscular Volume 100 fL (79-100) Mean Corpuscular Hemoglobin 32 pg (25-35) Mean Corpuscular Hemoglobin Concent 32 g/dL (31-37) Red Cell Distribution Width 19.5 % (11.5-14.5) Platelet Count 341 x10^3/uL (140-400) Neutrophils (%) (Auto) 60 % (31-73) Lymphocytes (%) (Auto) 17 % (24-48) Monocytes (%) (Auto) 13 % (0-9) Eosinophils (%) (Auto) 9 % (0-3) Basophils (%) (Auto) 1 % (0-3) Neutrophils # (Auto) 7.9 x10^3/uL (1.8-7.7) Lymphocytes # (Auto) 2.3 x10^3/uL (1.0-4.8) Monocytes # (Auto) 1.7 x10^3/uL (0.0-1.1) Eosinophils # (Auto) 1.1 x10^3/uL (0.0-0.7) Basophils # (Auto) 0.1 x10^3/uL (0.0-0.2) Sodium Level 137 mmol/L (136-145) Potassium Level 3.8 mmol/L (3.5-5.1) Chloride Level 99 mmol/L (98-107) Carbon Dioxide Level 30 mmol/L (21-32) Anion Gap 8 (6-14) Blood Urea Nitrogen 49 mg/dL (7-20) Creatinine 2.3 mg/dL (0.6-1.0) Estimated GFR (Cockcroft-Gault) 22.5 Glucose Level 209 mg/dL (70-99) Calcium Level 8.4 mg/dL (8.5-10.1) Phosphorus Level 2.6 mg/dL (2.6-4.7) Albumin 3.0 g/dL (3.4-5.0) Test 07/29/19 09:00 07/29/19 12:29 O2 Saturation 95 % (92-99) Arterial Blood pH 7.43 (7.35-7.45) Arterial Blood pCO2 at Patient Temp 44 mmHg (35-46) Arterial Blood pO2 at Patient Temp 81 mmHg (75-108) Arterial Blood HCO3 28 mmol/L (21-28) Arterial Blood Base Excess 4 mmol/L (-3-3) FiO2 35% vent Glucose (Fingerstick) 247 mg/dL (70-99) Laboratory Tests Test 07/28/19 14:50 07/28/19 18:30 07/29/19 00:21 07/29/19 06:00 Glucose (Fingerstick) 157 mg/dL (70-99) 189 mg/dL (70-99) 218 mg/dL (70-99) White Blood Count 13.1 x10^3/uL (4.0-11.0) Red Blood Count 2.32 x10^6/uL (3.50-5.40) Hemoglobin 7.4 g/dL (12.0-15.5) Hematocrit 23.1 % (36.0-47.0) Mean Corpuscular Volume 100 fL (79-100) Mean Corpuscular Hemoglobin 32 pg (25-35) Mean Corpuscular Hemoglobin Concent 32 g/dL (31-37) Red Cell Distribution Width 19.5 % (11.5-14.5) Platelet Count 341 x10^3/uL (140-400) Neutrophils (%) (Auto) 60 % (31-73) Lymphocytes (%) (Auto) 17 % (24-48) Monocytes (%) (Auto) 13 % (0-9) Eosinophils (%) (Auto) 9 % (0-3) Basophils (%) (Auto) 1 % (0-3) Neutrophils # (Auto) 7.9 x10^3/uL (1.8-7.7) Lymphocytes # (Auto) 2.3 x10^3/uL (1.0-4.8) Monocytes # (Auto) 1.7 x10^3/uL (0.0-1.1) Eosinophils # (Auto) 1.1 x10^3/uL (0.0-0.7) Basophils # (Auto) 0.1 x10^3/uL (0.0-0.2) Sodium Level 137 mmol/L (136-145) Potassium Level 3.8 mmol/L (3.5-5.1) Chloride Level 99 mmol/L (98-107) Carbon Dioxide Level 30 mmol/L (21-32) Anion Gap 8 (6-14) Blood Urea Nitrogen 49 mg/dL (7-20) Creatinine 2.3 mg/dL (0.6-1.0) Estimated GFR (Cockcroft-Gault) 22.5 Glucose Level 209 mg/dL (70-99) Calcium Level 8.4 mg/dL (8.5-10.1) Phosphorus Level 2.6 mg/dL (2.6-4.7) Albumin 3.0 g/dL (3.4-5.0) Test 07/29/19 09:00 07/29/19 12:29 O2 Saturation 95 % (92-99) Arterial Blood pH 7.43 (7.35-7.45) Arterial Blood pCO2 at Patient Temp 44 mmHg (35-46) Arterial Blood pO2 at Patient Temp 81 mmHg (75-108) Arterial Blood HCO3 28 mmol/L (21-28) Arterial Blood Base Excess 4 mmol/L (-3-3) FiO2 35% vent Glucose (Fingerstick) 247 mg/dL (70-99) Problem List Problems Medical Problems: (1) Acute pancreatitis Status: Acute (2) Cholelithiasis Status: Acute Assessment/Plan severe pancreatitis cont supportive care DAVON SIMMS MD Jul 29, 2019 13:46
--- NOTE | 2019-07-29 14:06 | NUR ---
SS following up with discharge planning. SS discussed with RNEcho. No new changes. Pt remains on the vent with trach and TPN and hemodialysis. Pt needing LTAC placement but is self pay. Pt's daughters working to obtain financial power of environmental attorney so that they can help with Medicaid application. SS will continue to follow for discharge planning.
--- NOTE | 2019-07-29 14:13 | PDOC ---
PROGRESS NOTES Chief Complaint Chief Complaint Respiratory failure requiring mechanical ventilation bilateral pleural effusions/pulm edema Sepsis Severe Acute gallstone pancreatitis (not a surgical candidate at this time) with necrosis Acute kidney failure now requiring dialysis Salpingitis Gallstones (Calculus of gallbladder with acute cholecystitis without obstruction) HTN Leukocytosis Hypoxia Uterine fibroid Intractable pain Intractable nausea Covid 19 negative. Acute on chronic anemia EEG: No seizure activity. ESRD on HD Plan: continue supportive measures dialysis per nephro continue meropenam, dapto, capsofungin follow cultures continue levophed support as needed seizures, neuro following no plans for sx at present defer to sx regarding diet awaiting for placement, she will probably will need to transition to LTAC History of Present Illness History of Present Illness 07/28/19: patient seen in ICU tolerating dialysis. sedated on vent. no acute issues overnight. no fever today. 07/26/2019 No acute events reported overnight, case discussed with nursing staff patient in no acute distress no complaints during my visit, most likely patient will be moving to LTAC soon 07/25/2019 Plans for trach int he am and dialysis in the afternoon, no acute events reported overnight. 07/24/2019 No acute events reported overnight, case discussed with nursing staff patient in no acute distress during my visit 07/23/2019 No acute events reported overnight, patient receiving dialysis today, case discussed with nursing staff patient in no acute distress during my visit 07/22/2019 No new changes remains critically ill, off CRRT, still planning for trach on Thursday unless we manage to wean over the weekend 07/21/2019 Continues to remain critically ill. The patient unable to be taken off ventilatory support as of yet., Discussed with pulmonary job service consultant. Planning all tracheostomy on Thursday if he is unable to be weaned off vent 07/20/2019 No acute events reported overnight, no fever or chills, remains critically stable, discussed with mother at bedside. [id number] Patient seen and examined in the ICU She is critically ill Mechanically ventilated Assist-control/25/450/30 with 8 of PEEP She is on cefepime daptomycin Flagyl and micafungin GEN for antibiotic coverage Also getting TPN and CRRT Sedated with Versed Getting IV albumin also She is tachycardic at 112 bpm Temp max 100.0 White blood count is down from 45,000 35,000 today Chart reviewed Discussed with RN [id number] Patient seen and examined in the ICU She remains very critically ill Going for a CT of the abdomen chest and pelvis Ventilated : On assist control 40% FiO2 Discussed with RN Chart reviewed [id number] Patient seen and examined in the ICU She is still on CRRT although we plan to change to hemodialysis soon Chart reviewed Discussed with RN Hemoglobin down to 6.9 (suspect CRRT related , Will let nephrology consider transfusion while on dialysis) [id number] Patient seen and examined in the ICU She is mechanically ventilated Before meals/25/450/30% Also on CRRT Very critically ill Chart reviewed Discussed with RN [id number] Patient seen and examined in the ICU She is now been transferred to the Covid 19 unit so we can rule out Covid and keep her in isolation Very critically ill Intubated and ventilated Assist control 40% Chart reviewed Discussed with RN Still on CRRT Getting a chest x-ray now Very concerned about her prognosis [id number] Patient seen and examined in the ICU She is extremely critically ill Remains mechanically ventilated with assist control/25/450/40% Also on continuous renal replacement therapy Chart reviewed Discussed with RN She has TPN hanging Also on pressors [id number] Patient seen and examined in the ICU She is still requiring CRRT On the vent with assist control but her FiO2 is down to 40% from yesterday Slightly better but still very critically ill Discussed with RN Chart reviewed [id number] Patient seen and examined in the ICU She remains extremely critically ill On IV fentanyl IV Versed IV Doxy On the vent Assist-control/25/450/70% She is critically ill Discussed with RN Chart reviewed Patient is currently on CRRT as well [id number] Patient seen and examined in the ICU She had to be intubated this morning On assist-control 25/450/100% with 10 of PEEP and only satting 87% She is extremely critically ill I'm not sure if she will survive Chart reviewed Discussed with RN Ms Diaz is a 48yo F w/ PMHx HTN, prediabetes who presents the emergency room complaints of abdominal pain. Patient described off and on 3 days. She states is constant, described as a squeezing sensation in a band-like distribution. + nausea, vomiting. She denies any fever or diarrhea. Patient denies any abdominal surgical procedures. She states is worse with movements, car ride. Pain initially was upper abdomen however now pretty much generalized. Last bowel movement was 07/03/2019. Nothing makes her pain better. Patient denies any shortness of breath. She does state the pain moves into her chest. Denies any headache or visual changes. Lipase 92305, AST 401, ALT 249, Bilirubin 1.4. CT abdomen confirms pancreatic inflammation, peripancreatic fluid and inflammatory changes around the pancreas consistent with pancreatitis. Cholelithiasis and 1.4cm uterine fibroid as well as possible left salpingitis. Admitted for further care GI, General surgery, ID, Pulm consulted. 07/04: Overnight per report no urine output. Added dilaudid for pain, PICC placed per IR. Renal US negative.Seen bedside in ICU, given 2L additional NSS and albumin infusion. Still hypotensive, started on levophed. Repeat CT abdomen with necrosis. Updated her fiancee 07/05: Sats are only 87% on nasal cannula oxygen. Dialysis catheter per nephrology 07/06: She is now on BiPAP appears more ill, now on dialysis 07/07: Seen on BiPAP. Her mother and another family member are present and seemed to be good support for her. Currently on dialysis. Appears critically ill 07/08: Overnight Tmax 101.7 , still on BiPAP FiO2 40%, still on low dose Levophed gtt, TPN initiated. On dialysis Overnight still febrile. Dialysis today. She wakes up and responds to pain. No CP. Vitals Vitals Vital Signs Date Time Temp Pulse Resp B/P (MAP) Pulse Ox O2 Delivery O2 Flow Rate FiO2 07/29/19 14:00 100 20 122/55 (77) 99 Ventilator 07/29/19 12:00 98.2 98.2 Physical Exam Physical Exam GENERAL: Orally intubated/sedated - generalized anasarca HEENT: Pupils equal, ETT, dobhoff + NECK: Supple LUNGS: Diminished aeration bases HEART: S1, S2, regular ABDOMEN: Distended, hypoactive BS, Rectal tube in place : Lind EXTREMITIES: Generalized edema, no cyanosis - some mottling, Rooke boots & SCDs bilaterally DERMATOLOGIC: Warm and dry. No generalized rash. CENTRAL NERVOUS SYSTEM: Sedated RIJ Temp HDC, RUE-PICC Lt IJ removed 07/25 Chestwall line present General: No acute distress Heart: Other (increased rate) Lungs: Other (dimished in BLL) Abdomen: Soft, No tenderness Extremities: No edema, Other (SOME CLUBBING ) Skin: Other (mottling noted to extremities ) Labs LABS Laboratory Tests Test 07/28/19 14:50 07/28/19 18:30 07/29/19 00:21 07/29/19 06:00 Glucose (Fingerstick) 157 mg/dL (70-99) 189 mg/dL (70-99) 218 mg/dL (70-99) White Blood Count 13.1 x10^3/uL (4.0-11.0) Red Blood Count 2.32 x10^6/uL (3.50-5.40) Hemoglobin 7.4 g/dL (12.0-15.5) Hematocrit 23.1 % (36.0-47.0) Mean Corpuscular Volume 100 fL (79-100) Mean Corpuscular Hemoglobin 32 pg (25-35) Mean Corpuscular Hemoglobin Concent 32 g/dL (31-37) Red Cell Distribution Width 19.5 % (11.5-14.5) Platelet Count 341 x10^3/uL (140-400) Neutrophils (%) (Auto) 60 % (31-73) Lymphocytes (%) (Auto) 17 % (24-48) Monocytes (%) (Auto) 13 % (0-9) Eosinophils (%) (Auto) 9 % (0-3) Basophils (%) (Auto) 1 % (0-3) Neutrophils # (Auto) 7.9 x10^3/uL (1.8-7.7) Lymphocytes # (Auto) 2.3 x10^3/uL (1.0-4.8) Monocytes # (Auto) 1.7 x10^3/uL (0.0-1.1) Eosinophils # (Auto) 1.1 x10^3/uL (0.0-0.7) Basophils # (Auto) 0.1 x10^3/uL (0.0-0.2) Sodium Level 137 mmol/L (136-145) Potassium Level 3.8 mmol/L (3.5-5.1) Chloride Level 99 mmol/L (98-107) Carbon Dioxide Level 30 mmol/L (21-32) Anion Gap 8 (6-14) Blood Urea Nitrogen 49 mg/dL (7-20) Creatinine 2.3 mg/dL (0.6-1.0) Estimated GFR (Cockcroft-Gault) 22.5 Glucose Level 209 mg/dL (70-99) Calcium Level 8.4 mg/dL (8.5-10.1) Phosphorus Level 2.6 mg/dL (2.6-4.7) Albumin 3.0 g/dL (3.4-5.0) Test 07/29/19 09:00 07/29/19 12:29 O2 Saturation 95 % (92-99) Arterial Blood pH 7.43 (7.35-7.45) Arterial Blood pCO2 at Patient Temp 44 mmHg (35-46) Arterial Blood pO2 at Patient Temp 81 mmHg (75-108) Arterial Blood HCO3 28 mmol/L (21-28) Arterial Blood Base Excess 4 mmol/L (-3-3) FiO2 35% vent Glucose (Fingerstick) 247 mg/dL (70-99) Assessment and Plan Assessmemt and Plan Problems Medical Problems: (1) Acute pancreatitis Status: Acute (2) Cholelithiasis Status: Acute Comment Review of Relevant I have reviewed the following items kolby (where applicable) has been applied. Labs Laboratory Tests Test 07/27/19 17:45 07/28/19 00:03 07/28/19 06:15 07/28/19 08:00 Glucose (Fingerstick) 197 mg/dL (70-99) 206 mg/dL (70-99) 203 mg/dL (70-99) White Blood Count 12.0 x10^3/uL (4.0-11.0) Red Blood Count 2.30 x10^6/uL (3.50-5.40) Hemoglobin 7.4 g/dL (12.0-15.5) Hematocrit 22.9 % (36.0-47.0) Mean Corpuscular Volume 100 fL (79-100) Mean Corpuscular Hemoglobin 32 pg (25-35) Mean Corpuscular Hemoglobin Concent 32 g/dL (31-37) Red Cell Distribution Width 20.1 % (11.5-14.5) Platelet Count 328 x10^3/uL (140-400) Sodium Level 137 mmol/L (136-145) Potassium Level 3.7 mmol/L (3.5-5.1) Chloride Level 99 mmol/L (98-107) Carbon Dioxide Level 29 mmol/L (21-32) Anion Gap 9 (6-14) Blood Urea Nitrogen 51 mg/dL (7-20) Creatinine 2.2 mg/dL (0.6-1.0) Estimated GFR (Cockcroft-Gault) 23.7 Glucose Level 211 mg/dL (70-99) Calcium Level 8.7 mg/dL (8.5-10.1) Phosphorus Level 3.6 mg/dL (2.6-4.7) Magnesium Level 2.1 mg/dL (1.8-2.4) Albumin 2.6 g/dL (3.4-5.0) Triglycerides Level 436 mg/dL (0-150) O2 Saturation 92 % (92-99) Arterial Blood pH 7.40 (7.35-7.45) Arterial Blood pCO2 at Patient Temp 45 mmHg (35-46) Arterial Blood pO2 at Patient Temp 69 mmHg (75-108) Arterial Blood HCO3 27 mmol/L (21-28) Arterial Blood Base Excess 2 mmol/L (-3-3) FiO2 35 Test 07/28/19 14:50 07/28/19 18:30 07/29/19 00:21 07/29/19 06:00 Glucose (Fingerstick) 157 mg/dL (70-99) 189 mg/dL (70-99) 218 mg/dL (70-99) White Blood Count 13.1 x10^3/uL (4.0-11.0) Red Blood Count 2.32 x10^6/uL (3.50-5.40) Hemoglobin 7.4 g/dL (12.0-15.5) Hematocrit 23.1 % (36.0-47.0) Mean Corpuscular Volume 100 fL (79-100) Mean Corpuscular Hemoglobin 32 pg (25-35) Mean Corpuscular Hemoglobin Concent 32 g/dL (31-37) Red Cell Distribution Width 19.5 % (11.5-14.5) Platelet Count 341 x10^3/uL (140-400) Neutrophils (%) (Auto) 60 % (31-73) Lymphocytes (%) (Auto) 17 % (24-48) Monocytes (%) (Auto) 13 % (0-9) Eosinophils (%) (Auto) 9 % (0-3) Basophils (%) (Auto) 1 % (0-3) Neutrophils # (Auto) 7.9 x10^3/uL (1.8-7.7) Lymphocytes # (Auto) 2.3 x10^3/uL (1.0-4.8) Monocytes # (Auto) 1.7 x10^3/uL (0.0-1.1) Eosinophils # (Auto) 1.1 x10^3/uL (0.0-0.7) Basophils # (Auto) 0.1 x10^3/uL (0.0-0.2) Sodium Level 137 mmol/L (136-145) Potassium Level 3.8 mmol/L (3.5-5.1) Chloride Level 99 mmol/L (98-107) Carbon Dioxide Level 30 mmol/L (21-32) Anion Gap 8 (6-14) Blood Urea Nitrogen 49 mg/dL (7-20) Creatinine 2.3 mg/dL (0.6-1.0) Estimated GFR (Cockcroft-Gault) 22.5 Glucose Level 209 mg/dL (70-99) Calcium Level 8.4 mg/dL (8.5-10.1) Phosphorus Level 2.6 mg/dL (2.6-4.7) Albumin 3.0 g/dL (3.4-5.0) Test 07/29/19 09:00 07/29/19 12:29 O2 Saturation 95 % (92-99) Arterial Blood pH 7.43 (7.35-7.45) Arterial Blood pCO2 at Patient Temp 44 mmHg (35-46) Arterial Blood pO2 at Patient Temp 81 mmHg (75-108) Arterial Blood HCO3 28 mmol/L (21-28) Arterial Blood Base Excess 4 mmol/L (-3-3) FiO2 35% vent Glucose (Fingerstick) 247 mg/dL (70-99) Laboratory Tests Test 07/28/19 14:50 07/28/19 18:30 07/29/19 00:21 07/29/19 06:00 Glucose (Fingerstick) 157 mg/dL (70-99) 189 mg/dL (70-99) 218 mg/dL (70-99) White Blood Count 13.1 x10^3/uL (4.0-11.0) Red Blood Count 2.32 x10^6/uL (3.50-5.40) Hemoglobin 7.4 g/dL (12.0-15.5) Hematocrit 23.1 % (36.0-47.0) Mean Corpuscular Volume 100 fL (79-100) Mean Corpuscular Hemoglobin 32 pg (25-35) Mean Corpuscular Hemoglobin Concent 32 g/dL (31-37) Red Cell Distribution Width 19.5 % (11.5-14.5) Platelet Count 341 x10^3/uL (140-400) Neutrophils (%) (Auto) 60 % (31-73) Lymphocytes (%) (Auto) 17 % (24-48) Monocytes (%) (Auto) 13 % (0-9) Eosinophils (%) (Auto) 9 % (0-3) Basophils (%) (Auto) 1 % (0-3) Neutrophils # (Auto) 7.9 x10^3/uL (1.8-7.7) Lymphocytes # (Auto) 2.3 x10^3/uL (1.0-4.8) Monocytes # (Auto) 1.7 x10^3/uL (0.0-1.1) Eosinophils # (Auto) 1.1 x10^3/uL (0.0-0.7) Basophils # (Auto) 0.1 x10^3/uL (0.0-0.2) Sodium Level 137 mmol/L (136-145) Potassium Level 3.8 mmol/L (3.5-5.1) Chloride Level 99 mmol/L (98-107) Carbon Dioxide Level 30 mmol/L (21-32) Anion Gap 8 (6-14) Blood Urea Nitrogen 49 mg/dL (7-20) Creatinine 2.3 mg/dL (0.6-1.0) Estimated GFR (Cockcroft-Gault) 22.5 Glucose Level 209 mg/dL (70-99) Calcium Level 8.4 mg/dL (8.5-10.1) Phosphorus Level 2.6 mg/dL (2.6-4.7) Albumin 3.0 g/dL (3.4-5.0) Test 07/29/19 09:00 07/29/19 12:29 O2 Saturation 95 % (92-99) Arterial Blood pH 7.43 (7.35-7.45) Arterial Blood pCO2 at Patient Temp 44 mmHg (35-46) Arterial Blood pO2 at Patient Temp 81 mmHg (75-108) Arterial Blood HCO3 28 mmol/L (21-28) Arterial Blood Base Excess 4 mmol/L (-3-3) FiO2 35% vent Glucose (Fingerstick) 247 mg/dL (70-99) Microbiology 07/24/19 Blood Culture - Final, Complete NO GROWTH AFTER 5 DAYS 07/23/19 Urine Culture - Final, Complete 07/23/19 Urine Culture Result 1 (ALEXANDRA) - Final, Complete Medications Current Medications Sodium Chloride 1,000 ml @ 1,000 mls/hr Q1H IV Last administered on 07/04/19at 03:00; Start 07/04/19 at 03:00; Stop 07/04/19 at 03:59; Status DC Ondansetron HCl (Zofran) 4 mg 1X ONCE IVP Last administered on 07/04/19at 03:27; Start 07/04/19 at 03:00; Stop 07/04/19 at 03:01; Status DC Morphine Sulfate (Morphine Sulfate) 4 mg 1X ONCE IV ; Start 07/04/19 at 03:00; Stop 07/04/19 at 03:01; Status Cancel Ketorolac Tromethamine (Toradol 30mg Vial) 30 mg 1X ONCE IV Last administered on 07/04/19at 02:54; Start 07/04/19 at 03:00; Stop 07/04/19 at 03:01; Status DC Fentanyl Citrate (Fentanyl 2ml Vial) 25 mcg 1X ONCE IVP Last administered on 07/04/19at 03:23; Start 07/04/19 at 03:30; Stop 07/04/19 at 03:31; Status DC Fentanyl Citrate (Fentanyl 2ml Vial) 100 mcg STK-MED ONCE .ROUTE ; Start 07/04/19 at 03:18; Stop 07/04/19 at 03:18; Status DC Iohexol (Omnipaque 350 Mg/ml) 90 ml 1X ONCE IV Last administered on 07/04/19at 03:25; Start 07/04/19 at 03:30; Stop 07/04/19 at 03:31; Status DC Info (CONTRAST GIVEN -- Rx MONITORING) 1 each PRN DAILY PRN MC SEE COMMENTS; Start 07/04/19 at 03:30; Stop 07/06/19 at 03:29; Status DC Hydromorphone HCl (Dilaudid) 0.5 mg 1X ONCE IV Last administered on 07/04/19at 03:55; Start 07/04/19 at 04:30; Stop 07/04/19 at 04:32; Status DC Ondansetron HCl (Zofran) 4 mg PRN Q8HRS PRN IV NAUSEA/VOMITING 1ST CHOICE; Start 07/04/19 at 05:00; Stop 07/04/19 at 09:27; Status DC Morphine Sulfate (Morphine Sulfate) 2 mg PRN Q2HR PRN IV SEVERE PAIN 7-10 Last administered on 07/05/19at 12:26; Start 07/04/19 at 05:00; Stop 07/05/19 at 14: 15; Status DC Sodium Chloride 1,000 ml @ 125 mls/hr Q8H IV Last administered on 07/04/19at 20:56; Start 07/04/19 at 05:00; Stop 07/05/19 at 04:59; Status DC Hydromorphone HCl (Dilaudid) 0.5 mg PRN Q3HRS PRN IV SEVERE PAIN 7-10 Last administered on 07/05/19at 10:06; Start 07/04/19 at 05:00; Stop 07/05/19 at 12:01; Status DC Piperacillin Sod/ Tazobactam Sod 4.5 gm/Sodium Chloride 100 ml @ 200 mls/hr 1X ONCE IV Last administered on 07/04/19at 05:44; Start 07/04/19 at 06:00; Stop 07/04/19 at 06:29; Status DC Ondansetron HCl (Zofran) 4 mg PRN Q4HRS PRN IV NAUSEA/VOMITING 1ST CHOICE Last administered on 07/09/19at 16:15; Start 07/04/19 at 09:30 Insulin Human Lispro (HumaLOG) 0-9 UNITS Q6HRS SQ Last administered on 07/29/19at 12:35; Start 07/04/19 at 09:30 Dextrose (Dextrose 50%-Water Syringe) 12.5 gm PRN Q15MIN PRN IV SEE COMMENTS; Start 07/04/19 at 09:30 Pantoprazole Sodium (PROTONIX VIAL for IV PUSH) 40 mg DAILYAC IVP Last administered on 07/29/19at 08:05; Start 07/04/19 at 11:30 Prochlorperazine Edisylate (Compazine) 10 mg PRN Q6HRS PRN IV NAUSEA/VOMITING, 2nd CHOICE Last administered on 07/05/19at 00:42; Start 07/04/19 at 17:45 Atenolol (Tenormin) 100 mg DAILY PO ; Start 07/05/19 at 09:00; Stop 07/04/19 at 20:08; Status DC Metoprolol Tartrate (Lopressor Vial) 2.5 mg Q6HRS IVP Last administered on 07/05/19at 05:51; Start 07/04/19 at 20:15; Stop 07/05/19 at 10:02; Status DC Metoprolol Tartrate (Lopressor Vial) 5 mg Q6HRS IVP Last administered on 07/14/19at 00:12; Start 07/05/19 at 10:15; Stop 07/16/19 at 08:48; Status DC Hydromorphone HCl (Dilaudid) 1 mg PRN Q3HRS PRN IV SEVERE PAIN 7-10 Last administered on 07/11/19at 05:13; Start 07/05/19 at 12:00; Stop 07/19/19 at 00:25; Status DC Lidocaine HCl (Buffered Lidocaine 1%) 3 ml STK-MED ONCE .ROUTE ; Start 07/05/19 at 12:55; Stop 07/05/19 at 12:56; Status DC Albumin Human 500 ml @ 125 mls/hr 1X ONCE IV Last administered on 07/05/19at 14:33; Start 07/05/19 at 14:30; Stop 07/05/19 at 18:32; Status DC Norepinephrine Bitartrate 8 mg/ Dextrose 258 ml @ 17.299 mls/ hr CONT PRN IV PER PROTOCOL Last administered on 07/29/19at 13:31; Start 07/05/19 at 15:30 Sodium Chloride 1,000 ml @ 125 mls/hr Q8H IV Last administered on 07/05/19at 21:04; Start 07/05/19 at 16:00; Stop 07/06/19 at 02:42; Status DC Albumin Human 500 ml @ 125 mls/hr PRN BID PRN IV After every 2L NSS & BP < 90mm Last administered on 07/20/19at 14:21; Start 07/05/19 at 16:00 Iohexol (Omnipaque 300 Mg/ml) 60 ml 1X ONCE IV Last administered on 07/05/19at 17:20; Start 07/05/19 at 17:00; Stop 07/05/19 at 17:01; Status DC Info (CONTRAST GIVEN -- Rx MONITORING) 1 each PRN DAILY PRN MC SEE COMMENTS; Start 07/05/19 at 17:00; Stop 07/07/19 at 16:59; Status DC Meropenem 1 gm/ Sodium Chloride 100 ml @ 200 mls/hr Q8HRS IV Last administered on 07/06/19at 05:45; Start 07/05/19 at 20:00; Stop 07/06/19 at 08:48; Status DC Furosemide (Lasix) 40 mg 1X ONCE IVP Last administered on 07/05/19at 22:12; Start 07/05/19 at 22:30; Stop 07/05/19 at 22:31; Status DC Calcium Chloride 1000 mg/Sodium Chloride 110 ml @ 220 mls/hr 1X ONCE IV Last administered on 07/05/19at 22:11; Start 07/05/19 at 22:30; Stop 07/05/19 at 22:59; Status DC Albuterol Sulfate (Ventolin Neb Soln) 2.5 mg 1X ONCE NEB Last administered on 07/06/19at 00:56; Start 07/05/19 at 22:30; Stop 07/05/19 at 22:31; Status DC Insulin Human Regular (HumuLIN R VIAL) 5 unit 1X ONCE IV Last administered on 07/05/19at 22:14; Start 07/05/19 at 22:30; Stop 07/05/19 at 22:31; Status DC Magnesium Sulfate 50 ml @ 25 mls/hr 1X ONCE IV Last administered on 07/06/19at 02:57; Start 07/06/19 at 03:00; Stop 07/06/19 at 04:59; Status DC Calcium Gluconate 1000 mg/Sodium Chloride 110 ml @ 220 mls/hr 1X ONCE IV Last administered on 07/06/19at 02:46; Start 07/06/19 at 03:00; Stop 07/06/19 at 03:29; Status DC Sodium Chloride 1,000 ml @ 200 mls/hr Q5H IV Last administered on 07/06/19at 02:46; Start 07/06/19 at 03:00; Stop 07/06/19 at 10:21; Status DC Calcium Gluconate 1000 mg/Sodium Chloride 110 ml @ 220 mls/hr 1X ONCE IV Last administered on 07/06/19at 03:21; Start 07/06/19 at 03:30; Stop 07/06/19 at 03:59; Status DC Sodium Bicarbonate 50 meq/Sodium Chloride 1,050 ml @ 75 mls/hr Q14H IV Last ad ministered on 07/10/19at 21:10; Start 07/06/19 at 07:30; Stop 07/11/19 at 10:28; Status DC Calcium Gluconate 2000 mg/Sodium Chloride 120 ml @ 220 mls/hr 1X ONCE IV Last administered on 07/06/19at 09:05; Start 07/06/19 at 07:30; Stop 07/06/19 at 08:02; Status DC Lidocaine HCl (Xylocaine-Mpf 1% 2ml Vial) 2 ml STK-MED ONCE .ROUTE ; Start 07/06/19 at 08:47; Stop 07/06/19 at 08:47; Status DC Meropenem 500 mg/ Sodium Chloride 50 ml @ 100 mls/hr Q12HR IV Last administered on 07/11/19at 21:01; Start 07/06/19 at 18:00; Stop 07/12/19 at 07:58; Status DC Lidocaine HCl (Buffered Lidocaine 1%) 3 ml STK-MED ONCE .ROUTE ; Start 07/06/19 at 09:46; Stop 07/06/19 at 09:46; Status DC Lidocaine HCl (Buffered Lidocaine 1%) 6 ml 1X ONCE INJ Last administered on 07/06/19at 10:26; Start 07/06/19 at 10:15; Stop 07/06/19 at 10:16; Status DC Info (Tpn Per Pharmacy) 1 each PRN DAILY PRN MC SEE COMMENTS Last administered on 07/29/19at 11:58; Start 07/06/19 at 12:00 Sodium Chloride 1,000 ml @ 1,000 mls/hr Q1H PRN IV hypotension; Start 07/06/19 at 12:07; Stop 07/06/19 at 18:06; Status DC Diphenhydramine HCl (Benadryl) 25 mg 1X PRN PRN IV ITCHING; Start 07/06/19 at 12:15; Stop 07/07/19 at 12:14; Status DC Diphenhydramine HCl (Benadryl) 25 mg 1X PRN PRN IV ITCHING; Start 07/06/19 at 12:15; Stop 07/07/19 at 12:14; Status DC Sodium Chloride 1,000 ml @ 400 mls/hr Q2H30M PRN IV PATENCY; Start 07/06/19 at 12:07; Stop 07/07/19 at 00:06; Status DC Info (PHARMACY MONITORING -- do not chart) 1 each PRN DAILY PRN MC SEE COMMENTS; Start 07/06/19 at 12:15; Stop 07/08/19 at 08:13; Status DC Sodium Chloride 90 meq/Calcium Gluconate 10 meq/ Multivitamins 10 ml/Chromium/ Copper/Manganese/ Seleni/Zn 1 ml/ Total Parenteral Nutrition/Amino Acids/Dextrose/ Fat Emulsion Intravenous 55.005 ml @ 2.292 mls/hr TPN CONT IV ; Start 07/06/19 at 22:00; Stop 07/06/19 at 12:33; Status DC Info (Tpn Per Pharmacy) 1 each PRN DAILY PRN MC SEE COMMENTS; Start 07/06/19 at 12:30; Status UNV Sodium Chloride 90 meq/Calcium Gluconate 10 meq/ Multivitamins 10 ml/Chromium/ Copper/Manganese/ Seleni/Zn 0.5 ml/ Total Parenteral Nutrition/Amino Acids/Dextrose/ Fat Emulsion Intravenous 1,512 ml @ 63 mls/hr TPN CONT IV Last administered on 07/06/19at 22:06; Start 07/06/19 at 22:00; Stop 07/07/19 at 21:59; Status DC Calcium Carbonate/ Glycine (Tums) 500 mg PRN AFTMEALHC PRN PO INDIGESTION; Start 07/06/19 at 17:45 Calcium Gluconate (Calcium Gluconate) 2,000 mg 1X ONCE IVP Last administered on 07/07/19at 02:19; Start 07/07/19 at 02:15; Stop 07/07/19 at 02:16; Status DC Calcium Chloride 3000 mg/Sodium Chloride 1,030 ml @ 50 mls/hr [id number] IV Last administered on 07/09/19at 02:17; Start 07/07/19 at 08:00; Stop 07/09/19 at 15:23; Status DC Lorazepam (Ativan Inj) 1 mg PRN Q4HRS PRN IVP ANXIETY / AGITATION Last administered on 07/11/19at 00:34; Start 07/07/19 at 09:00 Sodium Chloride 1,000 ml @ 1,000 mls/hr Q1H PRN IV hypotension; Start 07/07/19 at 08:56; Stop 07/07/19 at 14:55; Status DC Albumin Human 200 ml @ 200 mls/hr 1X PRN PRN IV Hypotension; Start 07/07/19 at 09:00; Stop 07/07/19 at 14:59; Status DC Diphenhydramine HCl (Benadryl) 25 mg 1X PRN PRN IV ITCHING; Start 07/07/19 at 09:00; Stop 07/08/19 at 08:59; Status DC Diphenhydramine HCl (Benadryl) 25 mg 1X PRN PRN IV ITCHING; Start 07/07/19 at 09:00; Stop 07/08/19 at 08:59; Status DC Sodium Chloride 1,000 ml @ 400 mls/hr Q2H30M PRN IV PATENCY; Start 07/07/19 at 08:56; Stop 07/07/19 at 20:55; Status DC Info (PHARMACY MONITORING -- do not chart) 1 each PRN DAILY PRN MC SEE COMMENTS; Start 07/07/19 at 09:00; Status UNV Info (PHARMACY MONITORING -- do not chart) 1 each PRN DAILY PRN MC SEE COMMENTS; Start 07/07/19 at 09:00; Stop 07/08/19 at 08:13; Status DC Digoxin (Lanoxin) 500 mcg 1X ONCE IV Last administered on 07/07/19at 10:04; Start 07/07/19 at 10:00; Stop 07/07/19 at 10:01; Status DC Digoxin (Lanoxin) 125 mcg 1X ONCE IV Last administered on 07/07/19at 17:10; Start 07/07/19 at 18:00; Stop 07/07/19 at 18:01; Status DC Magnesium Sulfate 100 ml @ 25 mls/hr 1X ONCE IV Last administered on 07/07/19at 12:48; Start 07/07/19 at 13:00; Stop 07/07/19 at 16:59; Status DC Sodium Chloride 90 meq/Magnesium Sulfate 10 meq/ Calcium Gluconate 20 meq/ Multivitamins 10 ml/Chromium/ Copper/Manganese/ Seleni/Zn 0.5 ml/ Total Parenteral Nutrition/Amino Acids/Dextrose/ Fat Emulsion Intravenous 1,512 ml @ 63 mls/hr TPN CONT IV Last administered on 07/07/19at 22:25; Start 07/07/19 at 22:00; Stop 07/08/19 at 21:59; Status DC Sodium Chloride 1,000 ml @ 1,000 mls/hr Q1H PRN IV hypotension; Start 07/08/19 at 08:05; Stop 07/08/19 at 14:04; Status DC Albumin Human 200 ml @ 200 mls/hr 1X ONCE IV Last administered on 07/08/19at 08:57; Start 07/08/19 at 08:15; Stop 07/08/19 at 09:14; Status DC Diphenhydramine HCl (Benadryl) 25 mg 1X PRN PRN IV ITCHING; Start 07/08/19 at 08:15; Stop 07/09/19 at 08:14; Status DC Diphenhydramine HCl (Benadryl) 25 mg 1X PRN PRN IV ITCHING; Start 07/08/19 at 08:15; Stop 07/09/19 at 08:14; Status DC Sodium Chloride 1,000 ml @ 400 mls/hr Q2H30M PRN IV PATENCY; Start 07/08/19 at 08:05; Stop 07/08/19 at 20:04; Status DC Info (PHARMACY MONITORING -- do not chart) 1 each PRN DAILY PRN MC SEE COMMENTS; Start 07/08/19 at 08:15; Stop 07/12/19 at 07:57; Status DC Sodium Chloride 90 meq/Potassium Chloride 15 meq/ Potassium Phosphate 10 mmol/ Magnesium Sulfate 10 meq/Calcium Gluconate 20 meq/ Multivitamins 10 ml/Chromium/ Copper/Manganese/ Seleni/Zn 0.5 ml/ Total Parenteral Nutrition/Amino Acids/Dextrose/ Fat Emulsion Intravenous 1,512 ml @ 63 mls/hr TPN CONT IV Last administered on 07/08/19at 21:01; Start 07/08/19 at 22:00; Stop 07/09/19 at 21:59; Status DC Potassium Chloride/Water 100 ml @ 100 mls/hr 1X ONCE IV Last administered on 07/08/19at 14:09; Start 07/08/19 at 14:00; Stop 07/08/19 at 14:59; Status DC Benzocaine (Hurricaine One) 1 spray 1X ONCE MM Last administered on 07/08/19at 16:38; Start 07/08/19 at 14:30; Stop 07/08/19 at 14:31; Status DC Lidocaine HCl (Glydo (Lidocaine) Jelly) 1 ramu 1X ONCE MM Last administered on 07/08/19at 16:38; Start 07/08/19 at 14:30; Stop 07/08/19 at 14:31; Status DC Linezolid/Dextrose 300 ml @ 300 mls/hr Q12HR IV Last administered on 07/14/19at 21:04; Start 07/08/19 at 20:00; Stop 07/15/19 at 07:50; Status DC Acetaminophen (Tylenol) 650 mg PRN Q6HRS PRN PO MILD PAIN / TEMP; Start 07/09/19 at 03:30; Stop 07/09/19 at 03:36; Status DC Acetaminophen (Tylenol) 650 mg PRN Q6HRS PRN PEG MILD PAIN / TEMP Last administered on 07/14/19at 07:35; Start 07/09/19 at 03:36 Sodium Chloride 1,000 ml @ 1,000 mls/hr Q1H PRN IV hypotension; Start 07/09/19 at 07:50; Stop 07/09/19 at 13:49; Status DC Albumin Human 200 ml @ 200 mls/hr 1X PRN PRN IV Hypotension; Start 07/09/19 at 08:00; Stop 07/09/19 at 13:59; Status DC Sodium Chloride (Normal Saline Flush) 10 ml 1X PRN PRN IV AP catheter pack; Start 07/09/19 at 08:00; Stop 07/10/19 at 07:59; Status DC Sodium Chloride (Normal Saline Flush) 10 ml 1X PRN PRN IV SHIFT COORDINATOR catheter pack; Start 07/09/19 at 08:00; Stop 07/10/19 at 07:59; Status DC Sodium Chloride 1,000 ml @ 400 mls/hr Q2H30M PRN IV PATENCY; Start 07/09/19 at 07:50; Stop 07/09/19 at 19:49; Status DC Info (PHARMACY MONITORING -- do not chart) 1 each PRN DAILY PRN MC SEE COMMENTS; Start 07/09/19 at 08:00; Status UNV Info (PHARMACY MONITORING -- do not chart) 1 each PRN DAILY PRN MC SEE COMMENTS; Start 07/09/19 at 08:00; Stop 07/11/19 at 08:25; Status DC Sodium Chloride 90 meq/Potassium Chloride 15 meq/ Potassium Phosphate 10 mmol/ Magnesium Sulfate 10 meq/Calcium Gluconate 20 meq/ Multivitamins 10 ml/Chromium/ Copper/Manganese/ Seleni/Zn 0.5 ml/ Total Parenteral Nutrition/Amino Acids/Dextrose/ Fat Emulsion Intravenous 1,512 ml @ 63 mls/hr TPN CONT IV Last administered on 07/09/19at 20:57; Start 07/09/19 at 22:00; Stop 07/10/19 at 21:59; Status DC Sodium Chloride 90 meq/Potassium Chloride 15 meq/ Potassium Phosphate 15 mmol/ Magnesium Sulfate 10 meq/Calcium Gluconate 20 meq/ Multivitamins 10 ml/Chromium/ Copper/Manganese/ Seleni/Zn 0.5 ml/ Total Parenteral Nutrition/Amino Acids/Dextrose/ Fat Emulsion Intravenous 1,512 ml @ 63 mls/hr TPN CONT IV ; Start 07/10/19 at 22:00; Stop 07/10/19 at 14:16; Status DC Sodium Chloride 90 meq/Potassium Chloride 15 meq/ Potassium Phosphate 15 mmol/ Magnesium Sulfate 10 meq/Calcium Gluconate 20 meq/ Multivitamins 10 ml/Chromium/ Copper/Manganese/ Seleni/Zn 0.5 ml/ Total Parenteral Nutrition/Amino Acids/Dextrose/ Fat Emulsion Intravenous 1,200 ml @ 50 mls/hr TPN CONT IV ; Start 07/10/19 at 22:00; Stop 07/10/19 at 14:17; Status DC Sodium Chloride 90 meq/Potassium Chloride 15 meq/ Potassium Phosphate 10 mmol/ Magnesium Sulfate 10 meq/Calcium Gluconate 20 meq/ Multivitamins 10 ml/Chromium/ Copper/Manganese/ Seleni/Zn 0.5 ml/ Total Parenteral Nutrition/Amino Acids/ Dextrose/ Fat Emulsion Intravenous 1,200 ml @ 50 mls/hr TPN CONT IV Last administered on 07/10/19at 23:29; Start 07/10/19 at 22:00; Stop 07/11/19 at 21:59; Status DC Sodium Chloride 1,000 ml @ 1,000 mls/hr Q1H PRN IV hypotension; Start 07/11/19 at 07:28; Stop 07/11/19 at 13:27; Status DC Albumin Human 200 ml @ 200 mls/hr 1X ONCE IV Last administered on 07/11/19at 08:51; Start 07/11/19 at 07:30; Stop 07/11/19 at 08:29; Status DC Diphenhydramine HCl (Benadryl) 25 mg 1X PRN PRN IV ITCHING; Start 07/11/19 at 07:30; Stop 07/12/19 at 07:29; Status DC Diphenhydramine HCl (Benadryl) 25 mg 1X PRN PRN IV ITCHING; Start 07/11/19 at 07:30; Stop 07/12/19 at 07:29; Status DC Sodium Chloride 1,000 ml @ 400 mls/hr Q2H30M PRN IV PATENCY; Start 07/11/19 at 07:28; Stop 07/11/19 at 19:27; Status DC Info (PHARMACY MONITORING -- do not chart) 1 each PRN DAILY PRN MC SEE COMMENTS; Start 07/11/19 at 07:30; Stop 07/22/19 at 13:01; Status DC Metronidazole 100 ml @ 100 mls/hr Q6HRS IV Last administered on 07/27/19at 06:2 6; Start 07/11/19 at 08:30; Stop 07/27/19 at 09:58; Status DC Micafungin Sodium 100 mg/Dextrose 100 ml @ 100 mls/hr Q24H IV Last administered on 07/29/19at 08:05; Start 07/11/19 at 09:00 Propofol 0 ml @ As Directed STK-MED ONCE IV ; Start 07/11/19 at 07:53; Stop 07/11/19 at 07:53; Status DC Etomidate (Amidate) 20 mg STK-MED ONCE IV ; Start 07/11/19 at 07:53; Stop 07/11/19 at 07:54; Status DC Midazolam HCl (Versed) 5 mg STK-MED ONCE .ROUTE ; Start 07/11/19 at 07:57; Stop 07/11/19 at 07:57; Status DC Fentanyl Citrate 30 ml @ 0 mls/hr CONT PRN IV SEE PROTOCOL Last administered on 07/29/19at 07:51; Start 07/11/19 at 08:15 Artificial Tears (Artificial Tears) 1 drop PRN Q1HR PRN OU DRY EYE, 1st choice; Start 07/11/19 at 08:15 Midazolam HCl 50 mg/Sodium Chloride 50 ml @ 0 mls/hr CONT PRN IV SEE PROTOCOL Last administered on 07/14/19at 22:39; Start 07/11/19 at 08:15; Stop 07/16/19 at 15:59; Status DC Etomidate (Amidate) 8 mg 1X ONCE IV Last administered on 07/11/19at 08:33; Start 07/11/19 at 08:30; Stop 07/11/19 at 08:31; Status DC Succinylcholine Chloride (Anectine) 120 mg 1X ONCE IV Last administered on 07/11/19at 08:34; Start 07/11/19 at 08:30; Stop 07/11/19 at 08:31; Status DC Midazolam HCl (Versed) 5 mg 1X ONCE IV ; Start 07/11/19 at 08:30; Stop 07/11/19 at 08:31; Status DC Potassium Chloride 15 meq/ Bicarbonate Dialysis Soln w/ out KCl 5,007.5 ml @ 1,000 mls/ hr Q5H1M IV Last administered on 07/12/19at 11:11; Start 07/11/19 at 12:00; Stop 07/12/19 at 11:15; Status DC Potassium Chloride 15 meq/ Bicarbonate Dialysis Soln w/ out KCl 5,007.5 ml @ 1,000 mls/ hr Q5H1M IV Last administered on 07/12/19at 11:12; Start 07/11/19 at 12:00; Stop 07/12/19 at 11:17; Status DC Potassium Chloride 15 meq/ Bicarbonate Dialysis Soln w/ out KCl 5,007.5 ml @ 1,000 mls/ hr Q5H1M IV Last administered on 07/12/19at 11:11; Start 07/11/19 at 12:00; Stop 07/12/19 at 11:19; Status DC Sodium Chloride 90 meq/Potassium Chloride 15 meq/ Potassium Phosphate 10 mmol/ Magnesium Sulfate 10 meq/Calcium Gluconate 20 meq/ Multivitamins 10 ml/Chromium/ Copper/Manganese/ Seleni/Zn 0.5 ml/ Total Parenteral Nutrition/Amino Acids/Dextrose/ Fat Emulsion Intravenous 1,400 ml @ 58.333 mls/ hr TPN CONT IV Last administered on 07/11/19at 21:42; Start 07/11/19 at 22:00; Stop 07/12/19 at 21:59; Status DC Heparin Sodium (Porcine) (Heparin Sodium) 5,000 unit Q8HRS SQ Last administered on 07/16/19at 05:55; Start 07/11/19 at 15:00; Stop 07/16/19 at 13:28; Status DC Meropenem 500 mg/ Sodium Chloride 50 ml @ 100 mls/hr Q6HRS IV Last administered on 07/13/19at 06:00; Start 07/12/19 at 09:00; Stop 07/13/19 at 07:29; Status DC Potassium Phosphate 20 mmol/ Sodium Chloride 106.6667 ml @ 51.667 m... 1X ONCE IV Last administered on 07/12/19at 11:22; Start 07/12/19 at 10:15; Stop 07/12/19 at 12:18; Status DC Acetaminophen (Tylenol Supp) [address] MILD PAIN / TEMP Last administered on 07/28/19at 22:30; Start 07/12/19 at 10:30 Potassium Chloride/Water 100 ml @ 100 mls/hr Q1H IV Last administered on 07/12/19at 12:12; Start 07/12/19 at 11:00; Stop 07/12/19 at 12:59; Status DC Potassium Chloride 20 meq/ Bicarbonate Dialysis Soln w/ out KCl 5,010 ml @ 1,000 mls/hr Q5H1M IV Last administered on 07/13/19at 08:48; Start 07/12/19 at 12:00; Stop 07/13/19 at 13:03; Status DC Potassium Chloride 20 meq/ Bicarbonate Dialysis Soln w/ out KCl 5,010 ml @ 1,000 mls/hr Q5H1M IV Last administered on 07/17/19at 14:52; Start 07/12/19 at 1 1:30; Stop 07/17/19 at 19:59; Status DC Potassium Chloride 20 meq/ Bicarbonate Dialysis Soln w/ out KCl 5,010 ml @ 1,000 mls/hr Q5H1M IV Last administered on 07/17/19at 14:53; Start 07/12/19 at 11:30; Stop 07/17/19 at 19:59; Status DC Sodium Chloride 90 meq/Potassium Chloride 15 meq/ Potassium Phosphate 15 mmol/ Magnesium Sulfate 10 meq/Calcium Gluconate 15 meq/ Multivitamins 10 ml/Chromium/ Copper/Manganese/ Seleni/Zn 0.5 ml/ Total Parenteral Nutrition/Amino Acids/Dextrose/ Fat Emulsion Intravenous 1,400 ml @ 58.333 mls/ hr TPN CONT IV Last administered on 07/12/19at 22:17; Start 07/12/19 at 22:00; Stop 07/13/19 at 21:59; Status DC Cefepime HCl (Maxipime) 2 gm Q12HR IVP Last administered on 07/26/19at 20:56; Start 07/13/19 at 09:00; Stop 07/27/19 at 09:58; Status DC Daptomycin 500 mg/ Sodium Chloride 50 ml @ 100 mls/hr Q48H IV Last administered on 07/29/19at 09:57; Start 07/13/19 at 08:30; Stop 07/29/19 at 10:07; Status DC Lidocaine HCl (Buffered Lidocaine 1%) 3 ml 1X ONCE INJ Last administered on at 10:27; Start 07/13/19 at 10:30; Stop 07/13/19 at 10:31; Status DC Potassium Phosphate 20 mmol/ Sodium Chloride 106.6667 ml @ 51.667 m... 1X ONCE IV Last administered on 07/13/19at 12:51; Start 07/13/19 at 13:00; Stop 07/13/19 at 15:03; Status DC Sodium Chloride 90 meq/Potassium Chloride 15 meq/ Potassium Phosphate 18 mmol/ Magnesium Sulfate 8 meq/Calcium Gluconate 15 meq/ Multivitamins 10 ml/Chromium/ Copper/Manganese/ Seleni/Zn 0.5 ml/ Total Parenteral Nutrition/Amino Acids/Dextrose/ Fat Emulsion Intravenous 1,400 ml @ 58.333 mls/ hr TPN CONT IV Last administered on 07/13/19at 22:16; Start 07/13/19 at 22:00; Stop 07/14/19 at 21:59; Status DC Potassium Chloride 20 meq/ Bicarbonate Dialysis Soln w/ out KCl 5,010 ml @ 1,000 mls/hr Q5H1M IV Last administered on 07/17/19at 14:54; Start 07/13/19 at 16:00; Stop 07/17/19 at 19:59; Status DC Multi-Ingred Cream/Lotion/Oil/ Oint (Artificial Tears Eye Ointment) 1 ramu PRN Q1HR PRN OU DRY EYE, 2nd choice Last administered on 07/22/19at 11:05; Start 07/13/19 at 17:30 Sodium Chloride 90 meq/Potassium Chloride 15 meq/ Potassium Phosphate 18 mmol/ Magnesium Sulfate 8 meq/Calcium Gluconate 15 meq/ Multivitamins 10 ml/Chromium/ Copper/Manganese/ Seleni/Zn 0.5 ml/ Total Parenteral Nutrition/Amino Acids/Dextrose/ Fat Emulsion Intravenous 1,400 ml @ 58.333 mls/ hr TPN CONT IV Last administered on 07/14/19at 22:00; Start 07/14/19 at 22:00; Stop 07/15/19 at 21:59; Status DC Albumin Human 500 ml @ 125 mls/hr 1X ONCE IV ; Start 07/14/19 at 14:15; Stop 07/14/19 at 18:14; Status DC Sodium Chloride 90 meq/Potassium Chloride 15 meq/ Potassium Phosphate 18 mmol/ Magnesium Sulfate 8 meq/Calcium Gluconate 15 meq/ Multivitamins 10 ml/Chromium/ Copper/Manganese/ Seleni/Zn 0.5 ml/ Insulin Human Regular 10 unit/ Total Janett ral Nutrition/Amino Acids/Dextrose/ Fat Emulsion Intravenous 1,400 ml @ 58.333 mls/ hr TPN CONT IV Last administered on 07/15/19at 21:43; Start 07/15/19 at 22:00; Stop 07/16/19 at 21:59; Status DC Lidocaine HCl (Buffered Lidocaine 1%) 3 ml STK-MED ONCE .ROUTE ; Start 07/13/19 at 10:00; Stop 07/15/19 at 13:57; Status DC Midazolam HCl 100 mg/Sodium Chloride 100 ml @ 7 mls/hr CONT PRN IV SEE PROTOCOL Last administered on 07/27/19at 15:35; Start 07/16/19 at 16:00 Sodium Chloride 90 meq/Potassium Chloride 15 meq/ Potassium Phosphate 18 mmol/ Magnesium Sulfate 8 meq/Calcium Gluconate 15 meq/ Multivitamins 10 ml/Chromium/ Copper/Manganese/ Seleni/Zn 0.5 ml/ Insulin Human Regular 15 unit/ Total Parenteral Nutrition/Amino Acids/Dextrose/ Fat Emulsion Intravenous 1,400 ml @ 58.333 mls/ hr TPN CONT IV Last administered on 07/16/19at 20:34; Start 07/16/19 at 22:00; Stop 07/17/19 at 21:59; Status DC Info (Icu Electrolyte Protocol) 1 ea CONT PRN PRN MC PER PROTOCOL; Start 07/17/19 at 13:15 Sodium Chloride 90 meq/Potassium Chloride 15 meq/ Potassium Phosphate 18 mmol/ Magnesium Sulfate 8 meq/Calcium Gluconate 15 meq/ Multivitamins 10 ml/Chromium/ Copper/Manganese/ Seleni/Zn 0.5 ml/ Insulin Human Regular 15 unit/ Total Parenteral Nutrition/Amino Acids/Dextrose/ Fat Emulsion Intravenous 1,400 ml @ 58.333 mls/ hr TPN CONT IV Last administered on 07/17/19at 22:05; Start 07/17/19 at 22:00; Stop 07/18/19 at 21:59; Status DC Potassium Chloride 15 meq/ Bicarbonate Dialysis Soln w/ out KCl 5,007.5 ml @ 1,000 mls/ hr Q5H1M IV Last administered on 07/20/19at 18:14; Start 07/17/19 at 20:00; Stop 07/21/19 at 13:08; Status DC Potassium Chloride 15 meq/ Bicarbonate Dialysis Soln w/ out KCl 5,007.5 ml @ 1,000 mls/ hr Q5H1M IV Last administered on 07/20/19at 18:14; Start 07/17/19 at 20:00; Stop 07/21/19 at 13:08; Status DC Potassium Chloride 15 meq/ Bicarbonate Dialysis Soln w/ out KCl 5,007.5 ml @ 1,000 mls/ hr Q5H1M IV Last administered on 07/20/19at 18:14; Start 07/17/19 at 20:00; Stop 07/21/19 at 13:08; Status DC Iohexol (Omnipaque 240 Mg/ml) 30 ml 1X ONCE PO Last administered on 07/18/19at 11:30; Start 07/18/19 at 11:30; Stop 07/18/19 at 11:33; Status DC Info (CONTRAST GIVEN -- Rx MONITORING) 1 each PRN DAILY PRN MC SEE COMMENTS; Start 07/18/19 at 11:45; Stop 07/20/19 at 11:44; Status DC Sodium Chloride 90 meq/Potassium Chloride 15 meq/ Potassium Phosphate 18 mmol/ Magnesium Sulfate 8 meq/Calcium Gluconate 15 meq/ Multivitamins 10 ml/Chromium/ Copper/Manganese/ Seleni/Zn 0.5 ml/ Insulin Human Regular 15 unit/ Total Parenteral Nutrition/Amino Acids/Dextrose/ Fat Emulsion Intravenous 1,400 ml @ 58.333 mls/ hr TPN CONT IV Last administered on 07/18/19at 21:47; Start 07/18/19 at 22:00; Stop 07/19/19 at 21:59; Status DC Sodium Chloride 90 meq/Potassium Chloride 15 meq/ Potassium Phosphate 18 mmol/ Magnesium Sulfate 8 meq/Calcium Gluconate 15 meq/ Multivitamins 10 ml/Chromium/ Copper/Manganese/ Seleni/Zn 0.5 ml/ Insulin Human Regular 20 unit/ Total Parenteral Nutrition/Amino Acids/Dextrose/ Fat Emulsion Intravenous 1,400 ml @ 58.333 mls/ hr TPN CONT IV Last administered on 07/19/19at 21:36; Start 07/19/19 at 22:00; Stop 07/20/19 at 21:59; Status DC Alteplase, Recombinant (Cathflo For Central Catheter Clearance) 1 mg 1X ONCE INT CAT Last administered on 07/19/19at 20:03; Start 07/19/19 at 19:30; Stop 07/19/19 at 19:46; Status DC Alteplase, Recombinant (Cathflo For Central Catheter Clearance) 1 mg 1X ONCE I NT CAT Last administered on 07/19/19at 22:05; Start 07/19/19 at 22:00; Stop 07/19/19 at 22:01; Status DC Sodium Chloride 90 meq/Potassium Chloride 15 meq/ Potassium Phosphate 18 mmol/ Magnesium Sulfate 8 meq/Calcium Gluconate 15 meq/ Multivitamins 10 ml/Chromium/ Copper/Manganese/ Seleni/Zn 0.5 ml/ Insulin Human Regular 20 unit/ Total Parenteral Nutrition/Amino Acids/Dextrose/ Fat Emulsion Intravenous 1,400 ml @ 58.333 mls/ hr TPN CONT IV Last administered on 07/20/19at 21:30; Start 07/20/19 at 22:00; Stop 07/21/19 at 21:59; Status DC Dexmedetomidine HCl 400 mcg/ Sodium Chloride 100 ml @ 0 mls/hr CONT PRN IV ANXIETY / AGITATION Last administered on 07/29/19at 13:30; Start 07/21/19 at 08:15 Sodium Chloride 500 ml @ 500 mls/hr 1X PRN PRN IV ELEVATED BP, SEE COMMENTS; Start 07/21/19 at 08:15 Atropine Sulfate (ATROPINE 0.5mg SYRINGE) 0.5 mg PRN Q5MIN PRN IV SEE COMMENTS; Start 07/21/19 at 08:15 Furosemide (Lasix) 20 mg 1X ONCE IVP Last administered on 07/21/19at 08:19; Start 07/21/19 at 08:15; Stop 07/21/19 at 08:16; Status DC Lidocaine HCl (Buffered Lidocaine 1%) 3 ml STK-MED ONCE .ROUTE ; Start 07/21/19 at 08:39; Stop 07/21/19 at 08:39; Status DC Lidocaine HCl (Buffered Lidocaine 1%) 6 ml 1X ONCE INJ Last administered on 07/21/19at 09:05; Start 07/21/19 at 09:00; Stop 07/21/19 at 09:06; Status DC Sodium Chloride 90 meq/Potassium Chloride 15 meq/ Potassium Phosphate 18 mmol/ Magnesium Sulfate 8 meq/Calcium Gluconate 15 meq/ Multivitamins 10 ml/Chromium/ Copper/Manganese/ Seleni/Zn 0.5 ml/ Insulin Human Regular 20 unit/ Total Parenteral Nutrition/Amino Acids/Dextrose/ Fat Emulsion Intravenous 1,400 ml @ 58.333 mls/ hr TPN CONT IV Last administered on 07/21/19at 22:45; Start 07/21/19 at 22:00; Stop 07/22/19 at 21:59; Status DC Sodium Chloride 1,000 ml @ 1,000 mls/hr Q1H PRN IV hypotension; Start 07/22/19 at 07:30; Stop 07/22/19 at 13:29; Status DC Albumin Human 200 ml @ 200 mls/hr 1X PRN PRN IV Hypotension Last administered on 07/22/19at 09:36; Start 07/22/19 at 07:30; Stop 07/22/19 at 13:29; Status DC Sodium Chloride (Normal Saline Flush) 10 ml 1X PRN PRN IV AP catheter pack; Start 07/22/19 at 07:30; Stop 07/22/19 at 21:29; Status DC Sodium Chloride (Normal Saline Flush) 10 ml 1X PRN PRN IV SHIFT COORDINATOR catheter pack; Start 07/22/19 at 07:30; Stop 07/23/19 at 07:29; Status DC Sodium Chloride 1,000 ml @ 400 mls/hr Q2H30M PRN IV PATENCY; Start 07/22/19 at 07:30; Stop 07/22/19 at 19:29; Status DC Info (PHARMACY MONITORING -- do not chart) 1 each PRN DAILY PRN MC SEE COMMENTS; Start 07/22/19 at 07:30; Stop 07/22/19 at 13:02; Status DC Info (PHARMACY MONITORING -- do not chart) 1 each PRN DAILY PRN MC SEE COMMENTS; Start 07/22/19 at 07:30; Stop 07/24/19 at 12:45; Status DC Sodium Chloride 90 meq/Potassium Chloride 15 meq/ Potassium Phosphate 10 mmol/ Magnesium Sulfate 8 meq/Calcium Gluconate 15 meq/ Multivitamins 10 ml/Chromium/ Copper/Manganese/ Seleni/Zn 0.5 ml/ Insulin Human Regular 25 unit/ Total Parenteral Nutrition/Amino Acids/Dextrose/ Fat Emulsion Intravenous 1,400 ml @ 58.333 mls/ hr TPN CONT IV Last administered on 07/22/19at 22:19; Start 07/22/19 at 22:00; Stop 07/23/19 at 21:59; Status DC Heparin Sodium (Porcine) (Heparin Sodium) 5,000 unit Q12HR SQ Last administered on 07/29/19at 09:00; Start 07/22/19 at 21:00 Ondansetron HCl (Zofran) 4 mg PRN Q6HRS PRN IV NAUSEA/VOMITING; Start 07/25/19 at 07:00; Stop 07/26/19 at 06:59; Status DC Fentanyl Citrate (Fentanyl 2ml Vial) 25 mcg PRN Q5MIN PRN IV MILD PAIN 1-3; Start 07/25/19 at 07:00; Stop 07/26/19 at 06:59; Status DC Fentanyl Citrate (Fentanyl 2ml Vial) 50 mcg PRN Q5MIN PRN IV MODERATE TO SEVERE PAIN; Start 07/25/19 at 07:00; Stop 07/26/19 at 06:59; Status DC Ringer's Solution 1,000 ml @ 30 mls/hr Q24H IV ; Start 07/25/19 at 07:00; Stop 07/25/19 at 18:59; Status DC Lidocaine HCl (Xylocaine-Mpf 1% 2ml Vial) 2 ml PRN 1X PRN ID PRIOR TO IV START; Start 07/25/19 at 07:00; Stop 07/26/19 at 06:59; Status DC Prochlorperazine Edisylate (Compazine) 5 mg PACU PRN PRN IV NAUSEA, MRX1; Start 07/25/19 at 07:00; Stop 07/26/19 at 06:59; Status DC Sodium Chloride 1,000 ml @ 1,000 mls/hr Q1H PRN IV hypotension; Start 07/23/19 at 09:10; Stop 07/23/19 at 15:09; Status DC Albumin Human 200 ml @ 200 mls/hr 1X PRN PRN IV Hypotension Last administered on 07/23/19at 10:10; Start 07/23/19 at 09:15; Stop 07/23/19 at 15:14; Status DC Sodium Chloride 1,000 ml @ 400 mls/hr Q2H30M PRN IV PATENCY; Start 07/23/19 at 09:10; Stop 07/23/19 at 21:09; Status DC Info (PHARMACY MONITORING -- do not chart) 1 each PRN DAILY PRN MC SEE COMMENTS; Start 07/23/19 at 09:15; Stop 07/24/19 at 12:45; Status DC Info (PHARMACY MONITORING -- do not chart) 1 each PRN DAILY PRN MC SEE COMMENTS; Start 07/23/19 at 09:15; Stop 07/24/19 at 12:45; Status DC Sodium Chloride 90 meq/Potassium Chloride 15 meq/ Potassium Phosphate 10 mmol/ Magnesium Sulfate 8 meq/Calcium Gluconate 15 meq/ Multivitamins 10 ml/Chromium/ Copper/Manganese/ Seleni/Zn 0.5 ml/ Insulin Human Regular 25 unit/ Total Parenteral Nutrition/Amino Acids/Dextrose/ Fat Emulsion Intravenous 1,400 ml @ 58.333 mls/ hr TPN CONT IV Last administered on 07/23/19at 22:10; Start 07/23/19 at 22:00; Stop 07/24/19 at 21:59; Status DC Magnesium Sulfate 50 ml @ 25 mls/hr PRN DAILY PRN IV for Mag < 1.7 on am labs; Start 07/24/19 at 09:15 Sodium Chloride 90 meq/Potassium Chloride 15 meq/ Potassium Phosphate 10 mmol/ Magnesium Sulfate 8 meq/Calcium Gluconate 15 meq/ Multivitamins 10 ml/Chromium/ Copper/Manganese/ Seleni/Zn 0.5 ml/ Insulin Human Regular 25 unit/ Total Parenteral Nutrition/Amino Acids/Dextrose/ Fat Emulsion Intravenous 1,400 ml @ 58.333 mls/ hr TPN CONT IV Last administered on 07/24/19at 21:20; Start 07/24/19 at 22:00; Stop 07/25/19 at 21:59; Status DC Sodium Chloride 1,000 ml @ 1,000 mls/hr Q1H PRN IV hypotension; Start 07/24/19 at 12:23; Stop 07/24/19 at 18:22; Status DC Albumin Human 200 ml @ 200 mls/hr 1X ONCE IV Last administered on 07/24/19at 13:34; Start 07/24/19 at 12:30; Stop 07/24/19 at 13:29; Status DC Diphenhydramine HCl (Benadryl) 25 mg 1X PRN PRN IV ITCHING; Start 07/24/19 at 12:30; Stop 07/25/19 at 12:29; Status DC Diphenhydramine HCl (Benadryl) 25 mg 1X PRN PRN IV ITCHING; Start 07/24/19 at 12:30; Stop 07/25/19 at 12:29; Status DC Info (PHARMACY MONITORING -- do not chart) 1 each PRN DAILY PRN MC SEE COMMENTS; Start 07/24/19 at 12:30; Status Cancel Bupivacaine HCl/ Epinephrine Bitart (Sensorcain-Epi 0.5%-1:[id number] Mpf) 30 ml STK-MED ONCE .ROUTE Last administered on 07/25/19at 11:44; Start 07/25/19 at 11:00; Stop 07/25/19 at 11:01; Status DC Cellulose (Surgicel Fibrillar 1x2) 1 each STK-MED ONCE .ROUTE ; Start 07/25/19 at 11:00; Stop 07/25/19 at 11:01; Status DC Sodium Chloride 90 meq/Potassium Chloride 15 meq/ Potassium Phosphate 10 mmol/ Magnesium Sulfate 12 meq/Calcium Gluconate 15 meq/ Multivitamins 10 ml/Chromium/ Copper/Manganese/ Seleni/Zn 0.5 ml/ Insulin Human Regular 25 unit/ Total Parenteral Nutrition/Amino Acids/Dextrose/ Fat Emulsion Intravenous 1,400 ml @ 58.333 mls/ hr TPN CONT IV Last administered on 07/25/19at 22:24; Start 07/25/19 at 22:00; Stop 07/26/19 at 21:59; Status DC Propofol 20 ml @ As Directed STK-MED ONCE IV ; Start 07/25/19 at 11:07; Stop 07/25/19 at 11:07; Status DC Cellulose (Surgicel Hemostat 4x8) 1 each STK-MED ONCE .ROUTE Last administered on 07/25/19at 11:44; Start 07/25/19 at 11:55; Stop 07/25/19 at 11:56; Status DC Sevoflurane (Ultane) 60 ml STK-MED ONCE IH ; Start 07/25/19 at 12:46; Stop 07/25/19 at 12:46; Status DC Sodium Chloride 1,000 ml @ 1,000 mls/hr Q1H PRN IV hypotension; Start 07/25/19 at 13:51; Stop 07/25/19 at 19:50; Status DC Albumin Human 200 ml @ 200 mls/hr 1X PRN PRN IV Hypotension Last administered on 07/25/19at 14:51; Start 07/25/19 at 14:00; Stop 07/25/19 at 19:59; Status DC Diphenhydramine HCl (Benadryl) 25 mg 1X PRN PRN IV ITCHING; Start 07/25/19 at 14:00; Stop 07/26/19 at 13:59; Status DC Diphenhydramine HCl (Benadryl) 25 mg 1X PRN PRN IV ITCHING; Start 07/25/19 at 14:00; Stop 07/26/19 at 13:59; Status DC Sodium Chloride 1,000 ml @ 400 mls/hr Q2H30M PRN IV PATENCY; Start 07/25/19 at 13:51; Stop 07/26/19 at 01:50; Status DC Info (PHARMACY MONITORING -- do not chart) 1 each PRN DAILY PRN MC SEE COMMENTS; Start 07/25/19 at 14:00; Stop 07/28/19 at 08:16; Status DC Heparin Sodium (Porcine) (Hep Lock Adult) 500 unit STK-MED ONCE IVP ; Start 07/26/19 at 09:29; Stop 07/26/19 at 09:30; Status DC Sodium Chloride 1,000 ml @ 1,000 mls/hr Q1H PRN IV hypotension; Start 07/26/19 at 10:43; Stop 07/26/19 at 16:42; Status DC Sodium Chloride 1,000 ml @ 400 mls/hr Q2H30M PRN IV PATENCY; Start 07/26/19 at 10:43; Stop 07/26/19 at 22:42; Status DC Info (PHARMACY MONITORING -- do not chart) 1 each PRN DAILY PRN MC SEE COMMENTS; Start 07/26/19 at 10:45; Status UNV Info (PHARMACY MONITORING -- do not chart) 1 each PRN DAILY PRN MC SEE COMMENTS; Start 07/26/19 at 10:45; Status UNV Sodium Chloride 90 meq/Potassium Chloride 15 meq/ Magnesium Sulfate 12 meq/Calcium Gluconate 15 meq/ Multivitamins 10 ml/Chromium/ Copper/Manganese/ Seleni/Zn 0.5 ml/ Insulin Human Regular 25 unit/ Total Parenteral Nutrition/Amino Acids/Dextrose/ Fat Emulsion Intravenous 1,400 ml @ 58.333 mls/ hr TPN CONT IV Last administered on 07/26/19at 22:13; Start 07/26/19 at 22:00; Stop 07/27/19 at 21:59; Status DC Sodium Chloride 1,000 ml @ 1,000 mls/hr Q1H PRN IV hypotension; Start 07/27/19 at 07:50; Stop 07/27/19 at 13:49; Status DC Albumin Human 200 ml @ 200 mls/hr 1X ONCE IV ; Start 07/27/19 at 08:00; Stop 07/27/19 at 08:53; Status DC Diphenhydramine HCl (Benadryl) 25 mg 1X PRN PRN IV ITCHING; Start 07/27/19 at 08:00; Stop 07/28/19 at 07:59; Status DC Diphenhydramine HCl (Benadryl) 25 mg 1X PRN PRN IV ITCHING; Start 07/27/19 at 08:00; Stop 07/28/19 at 07:59; Status DC Info (PHARMACY MONITORING -- do not chart) 1 each PRN DAILY PRN MC SEE COMMENTS; Start 07/27/19 at 08:00; Stop 07/28/19 at 08:16; Status DC Albumin Human 50 ml @ 50 mls/hr 1X ONCE IV ; Start 07/27/19 at 08:53; Stop 07/27/19 at 08:56; Status DC Albumin Human 200 ml @ 50 mls/hr PRN 1X PRN IV HYPOTENSION Last administered on 07/27/19at 09:09; Start 07/27/19 at 09:00 Meropenem 500 mg/ Sodium Chloride 50 ml @ 100 mls/hr Q12H IV Last administered on 07/29/19at 11:00; Start 07/27/19 at 10:00 Sodium Chloride 90 meq/Magnesium Sulfate 12 meq/ Calcium Gluconate 15 meq/ Multivitamins 10 ml/Chromium/ Copper/Manganese/ Seleni/Zn 0.5 ml/ Insulin Human Regular 25 unit/ Total Parenteral Nutrition/Amino Acids/Dextrose/ Fat Emulsion Intravenous 1,400 ml @ 58.333 mls/ hr TPN CONT IV Last administered on 07/27/19at 21:41; Start 07/27/19 at 22:00; Stop 07/28/19 at 21:59; Status DC Sodium Chloride 1,000 ml @ 1,000 mls/hr Q1H PRN IV hypotension; Start 07/28/19 at 07:58; Stop 07/28/19 at 13:57; Status DC Albumin Human 200 ml @ 200 mls/hr 1X PRN PRN IV Hypotension Last administered on 07/28/19at 09:30; Start 07/28/19 at 08:00; Stop 07/28/19 at 13:59; Status DC Sodium Chloride 1,000 ml @ 400 mls/hr Q2H30M PRN IV PATENCY; Start 07/28/19 at 07:58; Stop 07/28/19 at 19:57; Status DC Info (PHARMACY MONITORING -- do not chart) 1 each PRN DAILY PRN MC SEE COMMENTS; Start 07/28/19 at 08:00 Info (PHARMACY MONITORING -- do not chart) 1 each PRN DAILY PRN MC SEE COMMENTS; Start 07/28/19 at 08:15; Status UNV Sodium Chloride 90 meq/Potassium Phosphate 5 mmol/ Magnesium Sulfate 12 meq/Calcium Gluconate 15 meq/ Multivitamins 10 ml/Chromium/ Copper/Manganese/ Seleni/Zn 0.5 ml/ Insulin Human Regular 30 unit/ Total Parenteral Nutrition/Amino Acids/Dextrose/ Fat Emulsion Intravenous 1,400 ml @ 58.333 mls/ hr TPN CONT IV Last administered on 07/28/19at 22:08; Start 07/28/19 at 22:00; Stop 07/29/19 at 21:59 Linezolid/Dextrose 300 ml @ 300 mls/hr Q12HR IV Last administered on 07/29/19at 12:14; Start 07/29/19 at 11:00 Sodium Chloride 90 meq/Potassium Phosphate 15 mmol/ Magnesium Sulfate 12 meq/Calcium Gluconate 15 meq/ Multivitamins 10 ml/Chromium/ Copper/Manganese/ Seleni/Zn 0.5 ml/ Insulin Human Regular 30 unit/ Total Parenteral Nutrition/Amino Acids/Dextrose/ Fat Emulsion Intravenous 1,400 ml @ 58.333 mls/ hr TPN CONT IV ; Start 07/29/19 at 22:00; Stop 07/30/19 at 21:59 Active Scripts Active Reported Bisoprolol Fumarate 5 Mg Tablet 10 Mg PO DAILY Vitals/I & O Vital Sign - Last 24 Hours 07/28/19 07/28/19 07/28/19 07/28/19 14:30 14:48 15:00 15:00 Temp 99.4 99.4 Pulse 98 90 Resp 18 18 B/P (MAP) 112/56 (74) 86/56 (66) Pulse Ox 100 100 99 O2 Delivery Ventilator Ventilator Mechanical Ventilator Ventilator 07/28/19 07/28/19 07/28/19 07/28/19 16:00 17:00 18:00 19:00 Pulse 96 106 134 102 Resp 17 17 20 20 B/P (MAP) 124/66 (85) 125/63 (83) 91/70 (77) 101/59 (73) Pulse Ox 99 100 99 98 O2 Delivery Ventilator Ventilator Ventilator Ventilator 07/28/19 07/28/19 07/28/19 07/28/19 20:00 20:00 20:06 21:00 Temp 100.9 100.9 Pulse 98 102 Resp 18 18 B/P (MAP) 122/65 (84) 118/58 (78) Pulse Ox 98 98 97 O2 Delivery Mechanical Ventilator Ventilator Ventilator Ventilator 07/28/19 07/28/19 07/28/19 07/29/19 22:00 22:15 23:00 00:00 Temp 101.2 101.2 Pulse 100 100 96 Resp 18 18 18 B/P (MAP) 130/58 (82) 114/53 (73) 100/52 (68) Pulse Ox 97 97 98 O2 Delivery Ventilator Ventilator Ventilator Mechanical Ventilator 07/29/19 07/29/19 07/29/19 07/29/19 00:00 00:05 01:00 02:00 Temp 101.9 101.9 Pulse 98 100 96 Resp 18 18 18 B/P (MAP) 107/55 (72) 116/57 (76) 111/59 (76) Pulse Ox 98 98 97 98 O2 Delivery Ventilator Ventilator Ventilator Ventilator 07/29/19 07/29/19 07/29/19 07/29/19 03:00 04:00 04:00 04:05 Temp 100.9 100.9 Pulse 96 94 Resp 18 18 B/P (MAP) 111/57 (75) 109/57 (74) Pulse Ox 98 97 98 O2 Delivery Ventilator Ventilator Mechanical Ventilator Ventilator 07/29/19 07/29/19 07/29/19 07/29/19 05:00 06:00 07:00 07:51 Pulse 88 92 90 Resp 18 18 18 18 B/P (MAP) 101/58 (72) 120/58 (78) 121/61 (81) Pulse Ox 98 98 98 98 O2 Delivery Ventilator Ventilator Ventilator Ventilator 07/29/19 07/29/19 07/29/19 07/29/19 08:00 08:00 08:00 08:15 Temp 100.1 100.1 Pulse 88 101 Resp 18 18 B/P (MAP) 118/57 (77) 71/36 (48) Pulse Ox 98 98 98 O2 Delivery Ventilator Mechanical Ventilator Ventilator Ventilator 07/29/19 07/29/19 07/29/19 07/29/19 08:26 08:30 09:00 10:00 Pulse 95 89 92 Resp 18 18 18 18 B/P (MAP) 149/69 (95) 119/52 (74) 107/51 (69) Pulse Ox 97 98 97 98 O2 Delivery Ventilator Ventilator Ventilator Ventilator 07/29/19 07/29/19 07/29/19 07/29/19 11:00 12:00 12:00 12:46 Temp 98.2 98.2 Pulse 88 100 99 Resp 18 18 22 B/P (MAP) 110/58 (75) 106/59 (75) 106/52 (70) Pulse Ox 99 99 100 O2 Delivery Ventilator Ventilator Mechanical Ventilator Ventilator 07/29/19 07/29/19 07/29/19 13:00 13:30 14:00 Pulse 97 98 100 Resp 28 24 20 B/P (MAP) 118/52 (74) 129/54 (79) 122/55 (77) Pulse Ox 98 99 99 O2 Delivery Ventilator Ventilator Ventilator Intake and Output 07/28/19 07/28/19 07/29/19 15:00 23:00 07:00 Intake Total 1284 ml 1070 ml Output Total 110 ml 100 ml 180 ml Balance -110 ml 1184 ml 890 ml Hemodynamically unstable?: No Is patient in severe pain?: No Is NPO status required?: Yes ROSS DIAS MD Jul 29, 2019 14:13
--- NOTE | 2019-07-29 17:04 | PDOC ---
PULMONARY PROGRESS NOTES Subjective Patient intubated on 07/10 , sedated Patient currently on assist control ventilator Vitals Vital Signs Date Time Temp Pulse Resp B/P (MAP) Pulse Ox O2 Delivery O2 Flow Rate FiO2 07/29/19 16:27 99 Ventilator 07/29/19 15:59 96 19 98/47 (64) 07/29/19 14:39 98.6 98.6 Comments intubated/sedated Lungs: Other (dimished in BLL) Cardiovascular: S1, S2 Abdomen: Soft, Non-tender Extremities: Other (+3 generalized edema ) Skin: Warm, Dry Labs Laboratory Tests Test 07/27/19 17:45 07/28/19 00:03 07/28/19 06:15 07/28/19 08:00 Glucose (Fingerstick) 197 mg/dL (70-99) 206 mg/dL (70-99) 203 mg/dL (70-99) White Blood Count 12.0 x10^3/uL (4.0-11.0) Red Blood Count 2.30 x10^6/uL (3.50-5.40) Hemoglobin 7.4 g/dL (12.0-15.5) Hematocrit 22.9 % (36.0-47.0) Mean Corpuscular Volume 100 fL (79-100) Mean Corpuscular Hemoglobin 32 pg (25-35) Mean Corpuscular Hemoglobin Concent 32 g/dL (31-37) Red Cell Distribution Width 20.1 % (11.5-14.5) Platelet Count 328 x10^3/uL (140-400) Sodium Level 137 mmol/L (136-145) Potassium Level 3.7 mmol/L (3.5-5.1) Chloride Level 99 mmol/L (98-107) Carbon Dioxide Level 29 mmol/L (21-32) Anion Gap 9 (6-14) Blood Urea Nitrogen 51 mg/dL (7-20) Creatinine 2.2 mg/dL (0.6-1.0) Estimated GFR (Cockcroft-Gault) 23.7 Glucose Level 211 mg/dL (70-99) Calcium Level 8.7 mg/dL (8.5-10.1) Phosphorus Level 3.6 mg/dL (2.6-4.7) Magnesium Level 2.1 mg/dL (1.8-2.4) Albumin 2.6 g/dL (3.4-5.0) Triglycerides Level 436 mg/dL (0-150) O2 Saturation 92 % (92-99) Arterial Blood pH 7.40 (7.35-7.45) Arterial Blood pCO2 at Patient Temp 45 mmHg (35-46) Arterial Blood pO2 at Patient Temp 69 mmHg (75-108) Arterial Blood HCO3 27 mmol/L (21-28) Arterial Blood Base Excess 2 mmol/L (-3-3) FiO2 35 Test 07/28/19 14:50 07/28/19 18:30 07/29/19 00:21 07/29/19 06:00 Glucose (Fingerstick) 157 mg/dL (70-99) 189 mg/dL (70-99) 218 mg/dL (70-99) White Blood Count 13.1 x10^3/uL (4.0-11.0) Red Blood Count 2.32 x10^6/uL (3.50-5.40) Hemoglobin 7.4 g/dL (12.0-15.5) Hematocrit 23.1 % (36.0-47.0) Mean Corpuscular Volume 100 fL (79-100) Mean Corpuscular Hemoglobin 32 pg (25-35) Mean Corpuscular Hemoglobin Concent 32 g/dL (31-37) Red Cell Distribution Width 19.5 % (11.5-14.5) Platelet Count 341 x10^3/uL (140-400) Neutrophils (%) (Auto) 60 % (31-73) Lymphocytes (%) (Auto) 17 % (24-48) Monocytes (%) (Auto) 13 % (0-9) Eosinophils (%) (Auto) 9 % (0-3) Basophils (%) (Auto) 1 % (0-3) Neutrophils # (Auto) 7.9 x10^3/uL (1.8-7.7) Lymphocytes # (Auto) 2.3 x10^3/uL (1.0-4.8) Monocytes # (Auto) 1.7 x10^3/uL (0.0-1.1) Eosinophils # (Auto) 1.1 x10^3/uL (0.0-0.7) Basophils # (Auto) 0.1 x10^3/uL (0.0-0.2) Sodium Level 137 mmol/L (136-145) Potassium Level 3.8 mmol/L (3.5-5.1) Chloride Level 99 mmol/L (98-107) Carbon Dioxide Level 30 mmol/L (21-32) Anion Gap 8 (6-14) Blood Urea Nitrogen 49 mg/dL (7-20) Creatinine 2.3 mg/dL (0.6-1.0) Estimated GFR (Cockcroft-Gault) 22.5 Glucose Level 209 mg/dL (70-99) Calcium Level 8.4 mg/dL (8.5-10.1) Phosphorus Level 2.6 mg/dL (2.6-4.7) Albumin 3.0 g/dL (3.4-5.0) Test 07/29/19 09:00 07/29/19 12:29 O2 Saturation 95 % (92-99) Arterial Blood pH 7.43 (7.35-7.45) Arterial Blood pCO2 at Patient Temp 44 mmHg (35-46) Arterial Blood pO2 at Patient Temp 81 mmHg (75-108) Arterial Blood HCO3 28 mmol/L (21-28) Arterial Blood Base Excess 4 mmol/L (-3-3) FiO2 35% vent Glucose (Fingerstick) 247 mg/dL (70-99) Laboratory Tests Test 07/28/19 18:30 07/29/19 00:21 07/29/19 06:00 07/29/19 09:00 Glucose (Fingerstick) 189 mg/dL (70-99) 218 mg/dL (70-99) White Blood Count 13.1 x10^3/uL (4.0-11.0) Red Blood Count 2.32 x10^6/uL (3.50-5.40) Hemoglobin 7.4 g/dL (12.0-15.5) Hematocrit 23.1 % (36.0-47.0) Mean Corpuscular Volume 100 fL (79-100) Mean Corpuscular Hemoglobin 32 pg (25-35) Mean Corpuscular Hemoglobin Concent 32 g/dL (31-37) Red Cell Distribution Width 19.5 % (11.5-14.5) Platelet Count 341 x10^3/uL (140-400) Neutrophils (%) (Auto) 60 % (31-73) Lymphocytes (%) (Auto) 17 % (24-48) Monocytes (%) (Auto) 13 % (0-9) Eosinophils (%) (Auto) 9 % (0-3) Basophils (%) (Auto) 1 % (0-3) Neutrophils # (Auto) 7.9 x10^3/uL (1.8-7.7) Lymphocytes # (Auto) 2.3 x10^3/uL (1.0-4.8) Monocytes # (Auto) 1.7 x10^3/uL (0.0-1.1) Eosinophils # (Auto) 1.1 x10^3/uL (0.0-0.7) Basophils # (Auto) 0.1 x10^3/uL (0.0-0.2) Sodium Level 137 mmol/L (136-145) Potassium Level 3.8 mmol/L (3.5-5.1) Chloride Level 99 mmol/L (98-107) Carbon Dioxide Level 30 mmol/L (21-32) Anion Gap 8 (6-14) Blood Urea Nitrogen 49 mg/dL (7-20) Creatinine 2.3 mg/dL (0.6-1.0) Estimated GFR (Cockcroft-Gault) 22.5 Glucose Level 209 mg/dL (70-99) Calcium Level 8.4 mg/dL (8.5-10.1) Phosphorus Level 2.6 mg/dL (2.6-4.7) Albumin 3.0 g/dL (3.4-5.0) O2 Saturation 95 % (92-99) Arterial Blood pH 7.43 (7.35-7.45) Arterial Blood pCO2 at Patient Temp 44 mmHg (35-46) Arterial Blood pO2 at Patient Temp 81 mmHg (75-108) Arterial Blood HCO3 28 mmol/L (21-28) Arterial Blood Base Excess 4 mmol/L (-3-3) FiO2 35% vent Test 07/29/19 12:29 Glucose (Fingerstick) 247 mg/dL (70-99) Medications Active Scripts Medications Dose Route/Sig Max Daily Dose Days Date Category Bisoprolol Fumarate 5 Mg Tablet 10 Mg PO DAILY 07/04/19 Reported Comments Chest x-ray reviewed 07/24 IMPRESSION: 1. Increased moderate to large bilateral posteriorly layering pleural effusions with associated atelectasis. Impression . IMPRESSION: 1. Acute hypoxemic respiratory failure secondary to ARDS status post trach 2. Gallstone pancreatitis. WITH NECROSIS 3. Severe metabolic acidosis.stable 4. Acute kidney injury-stable 5. Acute gallstone pancreatitis. 6. Hypoalbuminemia. 7. Hypocalcemia. 8. Leukocytosis 9. Chronic anemia 10. Covid 19 testing negative 11. Acute /chronic anemia suspected hemorrhagic fluid in pelvis 12, Fever per ID Plan . Switch patient over to pressure support of 18, tidal volumes 300-400 Fever persist, will defer to surgery and ID Discussed with RN and RT. Pressure support as tolerated Transfuse prn, check H/H Antibiotics per ID, Follow nephrology Nutritional support with TPN Prognosis is guarded DVT/GI PPX d/w RN/RT HARMEET BEE MD Jul 29, 2019 17:04
[2019-07-29] MEDS ORDERED: DEXTROSE 70% IV SCH ×10 (22:00)
[2019-07-29] MEDS ORDERED: TOTAL PARENTERAL NUTRITION IV SCH ×10 (22:00)
[2019-07-29] MEDS ORDERED: [UNRECOGNIZED DRUG - OTHER] IV SCH ×10 (22:00)
[2019-07-29] MEDS ORDERED: AMINO ACID IV SCH ×10 (22:00)
[2019-07-30] VITALS (19 sets, daily range): BP systolic 97–157; BP diastolic 46–98
[2019-07-30] MEDS: INSULIN LISPRO 300 UNITS/3 ML VIAL. SQ SCH ×4 (00:30→18:00)
[2019-07-30] MEDS: DEXMEDETOMIDINE 400 MCG in IV NORMAL SALINE 100ML 96 ML IV PRN ×3 (06:09→21:15)
[2019-07-30 07:39] LABS: ALBUMIN 2.6 g/dL (3.4-5.0); CALCIUM 8.9 mg/dL (8.5-10.1); CREATININE 2.5 mg/dL (0.6-1.0); GFR 20.5; PHOSPHORUS 3.4 mg/dL (2.6-4.7); POTASSIUM 3.6 mmol/L (3.5-5.1)
[2019-07-30] MEDS: HEPARIN for SUB-Q USE 5,000 UNIT/ML VIAL. SQ SCH ×2 (08:31→21:21)
[2019-07-30] MEDS: PANTOPRAZOLE IV PUSH 40 MG VIAL. IVP SCH (08:51)
[2019-07-30] MEDS: MICAFUNGIN 100 MG in IV DEXTROSE 5% 100ML 100 ML IV SCH (08:52)
[2019-07-30 09:04] LABS: BASE EXCESS ABG -4 mmol/L (-3-3); HCO3 ABG 21 mmol/L (21-28); PCO2 ABG 36 mmHg (35-46); PO2 ABG 75 mmHg (75-108); SAT O2 ABG 94 % (92-99)
[2019-07-30 09:18] LABS: FIO2 ABG 35
--- NOTE | 2019-07-30 09:32 | PDOC ---
Infectious Disease Note Subjective Subjective Sedated Trach, vent FiO2 35 % PEEP 5 Hypotensive, on levaphed No fevers last 24 hrs + diarrhea TPN ROS ROS unobtainable Vital Sign Vital Signs Vital Signs Date Time Temp Pulse Resp B/P (MAP) Pulse Ox O2 Delivery O2 Flow Rate FiO2 07/30/19 08:23 98 6.0 07/30/19 08:02 Ventilator 07/30/19 06:00 95 18 127/74 (91) 07/30/19 04:00 97.6 97.6 Physical Exam PHYSICAL EXAM GENERAL: Sedated, generalized anasarca HEENT: Pupils equal, + NGT, green bile appearing secretions in mouth NECK: Trach/vent LUNGS: Diminished aeration bases HEART: S1, S2, regular ABDOMEN: Distended, hypoactive BS, Rectal tube in place : Lind EXTREMITIES: Generalized edema, no cyanosis, SCDs bilaterally DERMATOLOGIC: Warm and dry. No generalized rash. CENTRAL NERVOUS SYSTEM: Opens eyes to tactile stimuli HDC, LIJ and RUE-PICC without signs of complications Labs Lab Laboratory Tests Test 07/29/19 12:29 07/29/19 18:12 07/30/19 00:26 07/30/19 06:10 Glucose (Fingerstick) 247 mg/dL (70-99) 270 mg/dL (70-99) 272 mg/dL (70-99) Sodium Level 135 mmol/L (136-145) Potassium Level 3.6 mmol/L (3.5-5.1) Chloride Level 98 mmol/L (98-107) Carbon Dioxide Level 25 mmol/L (21-32) Anion Gap 12 (6-14) Blood Urea Nitrogen 72 mg/dL (7-20) Creatinine 2.5 mg/dL (0.6-1.0) Estimated GFR (Cockcroft-Gault) 20.5 Glucose Level 268 mg/dL (70-99) Calcium Level 8.9 mg/dL (8.5-10.1) Phosphorus Level 3.4 mg/dL (2.6-4.7) Albumin 2.6 g/dL (3.4-5.0) Test 07/30/19 06:11 Glucose (Fingerstick) 261 mg/dL (70-99) Micro CT A/P, 07/27 IMPRESSION: 1. Increased ascites. 2. 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 Cholelithiasis with thickening of the gallbladder wall. 4. Persistent pleural effusions and atelectasis in the lung bases. Objective Assessment Leukocytosis -trending up Fever. Severe acute gallstone pancreatitis with necrosis -CT 07/27 necrotizing pancreatitis with fluid and phlegmon at the pancreas -not a surgical candidate at this time Hypotension on levaphed JUANA requiring HD - s/p RIJ temporary dialysis catheter replacement, 07/20 Vent dependent respiratory failure -s/p Trach placement -lung opacities, COVID-19 neg Anasarca - worse Anemia - S/p PRBC 07/13 Hypocalcemia Prediabetes HTN Diarrhea, C. diff neg 07/10 Plan Plan of Care cont merrem (07/26) and Zyvox (07/28) and micafungin previously on cefepime, flagyl & dapto Gen surgery following f/u cultures from 07/27 still pending Maintain aspiration precautions Critically ill D/W RN Patient seen and examined. Chart reviewed in detail. 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 Soy syed with above plan. FRANCA HOBSON APRN Jul 30, 2019 09:32 GERMAN TORRES MD Jul 30, 2019 18:42
--- NOTE | 2019-07-30 09:38 | PDOC ---
PULMONARY PROGRESS NOTES Subjective Patient intubated on 07/10 , sedated Patient currently on assist control ventilator nursing reports pt. is having increase gastric secretions and even having gastric secretions for oral Vitals Vital Signs Date Time Temp Pulse Resp B/P (MAP) Pulse Ox O2 Delivery O2 Flow Rate FiO2 07/30/19 08:23 98 6.0 07/30/19 08:02 Ventilator 07/30/19 06:00 95 18 127/74 (91) 07/30/19 04:00 97.6 97.6 Comments Trach/sedated Lungs: Other (dimished in BLL) Cardiovascular: S1, S2 Abdomen: Soft, Non-tender Extremities: Other (+3 generalized edema ) Skin: Warm, Dry Labs Laboratory Tests Test 07/28/19 14:50 07/28/19 18:30 07/29/19 00:21 07/29/19 06:00 Glucose (Fingerstick) 157 mg/dL (70-99) 189 mg/dL (70-99) 218 mg/dL (70-99) White Blood Count 13.1 x10^3/uL (4.0-11.0) Red Blood Count 2.32 x10^6/uL (3.50-5.40) Hemoglobin 7.4 g/dL (12.0-15.5) Hematocrit 23.1 % (36.0-47.0) Mean Corpuscular Volume 100 fL (79-100) Mean Corpuscular Hemoglobin 32 pg (25-35) Mean Corpuscular Hemoglobin Concent 32 g/dL (31-37) Red Cell Distribution Width 19.5 % (11.5-14.5) Platelet Count 341 x10^3/uL (140-400) Neutrophils (%) (Auto) 60 % (31-73) Lymphocytes (%) (Auto) 17 % (24-48) Monocytes (%) (Auto) 13 % (0-9) Eosinophils (%) (Auto) 9 % (0-3) Basophils (%) (Auto) 1 % (0-3) Neutrophils # (Auto) 7.9 x10^3/uL (1.8-7.7) Lymphocytes # (Auto) 2.3 x10^3/uL (1.0-4.8) Monocytes # (Auto) 1.7 x10^3/uL (0.0-1.1) Eosinophils # (Auto) 1.1 x10^3/uL (0.0-0.7) Basophils # (Auto) 0.1 x10^3/uL (0.0-0.2) Sodium Level 137 mmol/L (136-145) Potassium Level 3.8 mmol/L (3.5-5.1) Chloride Level 99 mmol/L (98-107) Carbon Dioxide Level 30 mmol/L (21-32) Anion Gap 8 (6-14) Blood Urea Nitrogen 49 mg/dL (7-20) Creatinine 2.3 mg/dL (0.6-1.0) Estimated GFR (Cockcroft-Gault) 22.5 Glucose Level 209 mg/dL (70-99) Calcium Level 8.4 mg/dL (8.5-10.1) Phosphorus Level 2.6 mg/dL (2.6-4.7) Albumin 3.0 g/dL (3.4-5.0) Test 07/29/19 09:00 07/29/19 12:29 07/29/19 18:12 07/30/19 00:26 O2 Saturation 95 % (92-99) Arterial Blood pH 7.43 (7.35-7.45) Arterial Blood pCO2 at Patient Temp 44 mmHg (35-46) Arterial Blood pO2 at Patient Temp 81 mmHg (75-108) Arterial Blood HCO3 28 mmol/L (21-28) Arterial Blood Base Excess 4 mmol/L (-3-3) FiO2 35% vent Glucose (Fingerstick) 247 mg/dL (70-99) 270 mg/dL (70-99) 272 mg/dL (70-99) Test 07/30/19 06:10 07/30/19 06:11 07/30/19 08:00 Sodium Level 135 mmol/L (136-145) Potassium Level 3.6 mmol/L (3.5-5.1) Chloride Level 98 mmol/L (98-107) Carbon Dioxide Level 25 mmol/L (21-32) Anion Gap 12 (6-14) Blood Urea Nitrogen 72 mg/dL (7-20) Creatinine 2.5 mg/dL (0.6-1.0) Estimated GFR (Cockcroft-Gault) 20.5 Glucose Level 268 mg/dL (70-99) Calcium Level 8.9 mg/dL (8.5-10.1) Phosphorus Level 3.4 mg/dL (2.6-4.7) Albumin 2.6 g/dL (3.4-5.0) Glucose (Fingerstick) 261 mg/dL (70-99) O2 Saturation 94 % (92-99) Arterial Blood pH 7.38 (7.35-7.45) Arterial Blood pCO2 at Patient Temp 36 mmHg (35-46) Arterial Blood pO2 at Patient Temp 75 mmHg (75-108) Arterial Blood HCO3 21 mmol/L (21-28) Arterial Blood Base Excess -4 mmol/L (-3-3) FiO2 35 Laboratory Tests Test 07/29/19 12:29 07/29/19 18:12 07/30/19 00:26 07/30/19 06:10 Glucose (Fingerstick) 247 mg/dL (70-99) 270 mg/dL (70-99) 272 mg/dL (70-99) Sodium Level 135 mmol/L (136-145) Potassium Level 3.6 mmol/L (3.5-5.1) Chloride Level 98 mmol/L (98-107) Carbon Dioxide Level 25 mmol/L (21-32) Anion Gap 12 (6-14) Blood Urea Nitrogen 72 mg/dL (7-20) Creatinine 2.5 mg/dL (0.6-1.0) Estimated GFR (Cockcroft-Gault) 20.5 Glucose Level 268 mg/dL (70-99) Calcium Level 8.9 mg/dL (8.5-10.1) Phosphorus Level 3.4 mg/dL (2.6-4.7) Albumin 2.6 g/dL (3.4-5.0) Test 07/30/19 06:11 07/30/19 08:00 Glucose (Fingerstick) 261 mg/dL (70-99) O2 Saturation 94 % (92-99) Arterial Blood pH 7.38 (7.35-7.45) Arterial Blood pCO2 at Patient Temp 36 mmHg (35-46) Arterial Blood pO2 at Patient Temp 75 mmHg (75-108) Arterial Blood HCO3 21 mmol/L (21-28) Arterial Blood Base Excess -4 mmol/L (-3-3) FiO2 35 Medications Active Scripts Medications Dose Route/Sig Max Daily Dose Days Date Category Bisoprolol Fumarate 5 Mg Tablet 10 Mg PO DAILY 07/04/19 Reported Comments Chest x-ray reviewed 07/24 IMPRESSION: 1. Increased moderate to large bilateral posteriorly layering pleural effusions with associated atelectasis. Impression . IMPRESSION: 1. Acute hypoxemic respiratory failure secondary to ARDS status post trach, 2. Gallstone pancreatitis. WITH NECROSIS 3. Severe metabolic acidosis.stable 4. Acute kidney injury-stable 5. Acute gallstone pancreatitis. 6. Hypoalbuminemia. 7. Hypocalcemia. 8. Leukocytosis 9. Chronic anemia 10. Covid 19 testing negative 11. Acute /chronic anemia suspected hemorrhagic fluid in pelvis 12, Fever per ID-- resolved today Plan . Cont. current vent setting, ABG reviewed no need for changes 35% and PEEP 5 Fever resolved today increased gastric secretions, will defer to surgery and ID Discussed with RN and RT. Pressure support as tolerated Transfuse prn, check H/H Antibiotics per ID, Follow nephrology recs Nutritional support with TPN Remains on low dose levophed Prognosis is guarded DVT/GI PPX d/w RN/RT CC time : 35 minutes reviewing labs, patient care and discussing will care team HARMEET BEE MD Jul 30, 2019 09:38
--- NOTE | 2019-07-30 11:10 | PDOC ---
PROGRESS NOTES Chief Complaint Chief Complaint Respiratory failure requiring mechanical ventilation (on vent since 07/10) bilateral pleural effusions/pulm edema Sepsis Severe Acute gallstone pancreatitis (not a surgical candidate at this time) with necrosis Acute kidney failure now requiring dialysis Salpingitis Gallstones (Calculus of gallbladder with acute cholecystitis without obstruction) HTN Leukocytosis Hypoxia Uterine fibroid Intractable pain Intractable nausea Covid 19 negative. Acute on chronic anemia EEG: No seizure activity. ESRD on HD Hyperglycemia, persistantly in 200s Plan: continue supportive measures vent management per pulm. pressure support as tolerated dialysis per nephro cont merrem (07/26) and Zyvox (07/28) and micafungin previously on cefepime, flagyl & dapto follow cultures continue levophed support as needed seizures, neuro following no plans for sx at present check a1c, sugars in 200s, will increase sliding scale insulin and start basal insulin since persistently high sugars defer to sx regarding diet awaiting for placement, she will probably will need to transition to LTAC History of Present Illness History of Present Illness 07/28/19: patient seen in ICU tolerating dialysis. sedated on vent. no acute issues overnight. no fever today. 07/26/2019 No acute events reported overnight, case discussed with nursing staff patient in no acute distress no complaints during my visit, most likely patient will be moving to LTAC soon 07/25/2019 Plans for trach int he am and dialysis in the afternoon, no acute events reported overnight. 07/24/2019 No acute events reported overnight, case discussed with nursing staff patient in no acute distress during my visit 07/23/2019 No acute events reported overnight, patient receiving dialysis today, case discussed with nursing staff patient in no acute distress during my visit 07/22/2019 No new changes remains critically ill, off CRRT, still planning for trach on Thursday unless we manage to wean over the weekend 07/21/2019 Continues to remain critically ill. The patient unable to be taken off ventilatory support as of yet., Discussed with pulmonary crop consultant. Planning all tracheostomy on Thursday if he is unable to be weaned off vent 07/20/2019 No acute events reported overnight, no fever or chills, remains critically stable, discussed with mother at bedside. [id number] Patient seen and examined in the ICU She is critically ill Mechanically ventilated Assist-control/25/450/30 with 8 of PEEP She is on cefepime daptomycin Flagyl and micafungin GEN for antibiotic coverage Also getting TPN and CRRT Sedated with Versed Getting IV albumin also She is tachycardic at 112 bpm Temp max 100.0 White blood count is down from 45,000 35,000 today Chart reviewed Discussed with RN [id number] Patient seen and examined in the ICU She remains very critically ill Going for a CT of the abdomen chest and pelvis Ventilated : On assist control 40% FiO2 Discussed with RN Chart reviewed [id number] Patient seen and examined in the ICU She is still on CRRT although we plan to change to hemodialysis soon Chart reviewed Discussed with RN Hemoglobin down to 6.9 (suspect CRRT related , Will let nephrology consider transfusion while on dialysis) [id number] Patient seen and examined in the ICU She is mechanically ventilated Before meals/25/450/30% Also on CRRT Very critically ill Chart reviewed Discussed with RN [id number] Patient seen and examined in the ICU She is now been transferred to the [facility] unit so we can rule out Covid and keep her in isolation Very critically ill Intubated and ventilated Assist control 40% Chart reviewed Discussed with RN Still on CRRT Getting a chest x-ray now Very concerned about her prognosis [id number] Patient seen and examined in the ICU She is extremely critically ill Remains mechanically ventilated with assist control/25/450/40% Also on continuous renal replacement therapy Chart reviewed Discussed with RN She has TPN hanging Also on pressors [id number] Patient seen and examined in the ICU She is still requiring CRRT On the vent with assist control but her FiO2 is down to 40% from yesterday Slightly better but still very critically ill Discussed with RN Chart reviewed [id number] Patient seen and examined in the ICU She remains extremely critically ill On IV fentanyl IV Versed IV Doxy On the vent Assist-control/25/450/70% She is critically ill Discussed with RN Chart reviewed Patient is currently on CRRT as well [id number] Patient seen and examined in the ICU She had to be intubated this morning On assist-control 25/450/100% with 10 of PEEP and only satting 87% She is extremely critically ill I'm not sure if she will survive Chart reviewed Discussed with RN Ms Diaz is a 48yo F w/ PMHx HTN, prediabetes who presents the emergency room complaints of abdominal pain. Patient described off and on 3 days. She states is constant, described as a squeezing sensation in a band-like distribution. + nausea, vomiting. She denies any fever or diarrhea. Patient denies any abdominal surgical procedures. She states is worse with movements, car ride. Pain initially was upper abdomen however now pretty much generalized. Last bowel movement was 07/03/2019. Nothing makes her pain better. Patient denies any shortness of breath. She does state the pain moves into her chest. Denies any headache or visual changes. Lipase 58422, AST 401, ALT 249, Bilirubin 1.4. CT abdomen confirms pancreatic inflammation, peripancreatic fluid and inflammatory changes around the pancreas consistent with pancreatitis. Cholelithiasis and 1.4cm uterine fibroid as well as possible left salpingitis. Admitted for further care GI, General surgery, ID, Pulm consulted. 07/04: Overnight per report no urine output. Added dilaudid for pain, PICC placed per IR. Renal US negative.Seen bedside in ICU, given 2L additional NSS and albumin infusion. Still hypotensive, started on levophed. Repeat CT abdomen with necrosis. Updated her fiancee 07/05: Sats are only 87% on nasal cannula oxygen. Dialysis catheter per nephrology 07/06: She is now on BiPAP appears more ill, now on dialysis 07/07: Seen on BiPAP. Her mother and another family member are present and seemed to be good support for her. Currently on dialysis. Appears critically ill 07/08: Overnight Tmax 101.7 , still on BiPAP FiO2 40%, still on low dose Levophed gtt, TPN initiated. On dialysis Overnight still febrile. Dialysis today. She wakes up and responds to pain. No CP. Vitals Vitals Vital Signs Date Time Temp Pulse Resp B/P (MAP) Pulse Ox O2 Delivery O2 Flow Rate FiO2 07/30/19 08:53 20 98 Ventilator 07/30/19 08:23 6.0 07/30/19 06:00 95 127/74 (91) 07/30/19 04:00 97.6 97.6 Physical Exam Physical Exam GENERAL: Sedated, generalized anasarca HEENT: Pupils equal, + NGT, green bile appearing secretions in mouth NECK: Trach/vent LUNGS: Diminished aeration bases HEART: S1, S2, regular ABDOMEN: Distended, hypoactive BS, Rectal tube in place : Lind EXTREMITIES: Generalized edema, no cyanosis, SCDs bilaterally DERMATOLOGIC: Warm and dry. No generalized rash. CENTRAL NERVOUS SYSTEM: Opens eyes to tactile stimuli HDC, LIJ and RUE-PICC without signs of complications General: No acute distress Heart: Other (increased rate) Lungs: Other (dimished in BLL) Abdomen: Soft, No tenderness Extremities: No edema, Other (SOME CLUBBING ) Skin: Other (mottling noted to extremities ) Labs LABS Laboratory Tests Test 07/29/19 12:29 07/29/19 18:12 07/30/19 00:26 07/30/19 06:10 Glucose (Fingerstick) 247 mg/dL (70-99) 270 mg/dL (70-99) 272 mg/dL (70-99) Sodium Level 135 mmol/L (136-145) Potassium Level 3.6 mmol/L (3.5-5.1) Chloride Level 98 mmol/L (98-107) Carbon Dioxide Level 25 mmol/L (21-32) Anion Gap 12 (6-14) Blood Urea Nitrogen 72 mg/dL (7-20) Creatinine 2.5 mg/dL (0.6-1.0) Estimated GFR (Cockcroft-Gault) 20.5 Glucose Level 268 mg/dL (70-99) Calcium Level 8.9 mg/dL (8.5-10.1) Phosphorus Level 3.4 mg/dL (2.6-4.7) Albumin 2.6 g/dL (3.4-5.0) Test 07/30/19 06:11 07/30/19 08:00 Glucose (Fingerstick) 261 mg/dL (70-99) O2 Saturation 94 % (92-99) Arterial Blood pH 7.38 (7.35-7.45) Arterial Blood pCO2 at Patient Temp 36 mmHg (35-46) Arterial Blood pO2 at Patient Temp 75 mmHg (75-108) Arterial Blood HCO3 21 mmol/L (21-28) Arterial Blood Base Excess -4 mmol/L (-3-3) FiO2 35 Assessment and Plan Assessmemt and Plan Problems Medical Problems: (1) Acute pancreatitis Status: Acute (2) Cholelithiasis Status: Acute Comment Review of Relevant I have reviewed the following items kolby (where applicable) has been applied. Labs Laboratory Tests Test 07/28/19 14:50 07/28/19 18:30 07/29/19 00:21 07/29/19 06:00 Glucose (Fingerstick) 157 mg/dL (70-99) 189 mg/dL (70-99) 218 mg/dL (70-99) White Blood Count 13.1 x10^3/uL (4.0-11.0) Red Blood Count 2.32 x10^6/uL (3.50-5.40) Hemoglobin 7.4 g/dL (12.0-15.5) Hematocrit 23.1 % (36.0-47.0) Mean Corpuscular Volume 100 fL (79-100) Mean Corpuscular Hemoglobin 32 pg (25-35) Mean Corpuscular Hemoglobin Concent 32 g/dL (31-37) Red Cell Distribution Width 19.5 % (11.5-14.5) Platelet Count 341 x10^3/uL (140-400) Neutrophils (%) (Auto) 60 % (31-73) Lymphocytes (%) (Auto) 17 % (24-48) Monocytes (%) (Auto) 13 % (0-9) Eosinophils (%) (Auto) 9 % (0-3) Basophils (%) (Auto) 1 % (0-3) Neutrophils # (Auto) 7.9 x10^3/uL (1.8-7.7) Lymphocytes # (Auto) 2.3 x10^3/uL (1.0-4.8) Monocytes # (Auto) 1.7 x10^3/uL (0.0-1.1) Eosinophils # (Auto) 1.1 x10^3/uL (0.0-0.7) Basophils # (Auto) 0.1 x10^3/uL (0.0-0.2) Sodium Level 137 mmol/L (136-145) Potassium Level 3.8 mmol/L (3.5-5.1) Chloride Level 99 mmol/L (98-107) Carbon Dioxide Level 30 mmol/L (21-32) Anion Gap 8 (6-14) Blood Urea Nitrogen 49 mg/dL (7-20) Creatinine 2.3 mg/dL (0.6-1.0) Estimated GFR (Cockcroft-Gault) 22.5 Glucose Level 209 mg/dL (70-99) Calcium Level 8.4 mg/dL (8.5-10.1) Phosphorus Level 2.6 mg/dL (2.6-4.7) Albumin 3.0 g/dL (3.4-5.0) Test 07/29/19 09:00 07/29/19 12:29 07/29/19 18:12 07/30/19 00:26 O2 Saturation 95 % (92-99) Arterial Blood pH 7.43 (7.35-7.45) Arterial Blood pCO2 at Patient Temp 44 mmHg (35-46) Arterial Blood pO2 at Patient Temp 81 mmHg (75-108) Arterial Blood HCO3 28 mmol/L (21-28) Arterial Blood Base Excess 4 mmol/L (-3-3) FiO2 35% vent Glucose (Fingerstick) 247 mg/dL (70-99) 270 mg/dL (70-99) 272 mg/dL (70-99) Test 07/30/19 06:10 07/30/19 06:11 07/30/19 08:00 Sodium Level 135 mmol/L (136-145) Potassium Level 3.6 mmol/L (3.5-5.1) Chloride Level 98 mmol/L (98-107) Carbon Dioxide Level 25 mmol/L (21-32) Anion Gap 12 (6-14) Blood Urea Nitrogen 72 mg/dL (7-20) Creatinine 2.5 mg/dL (0.6-1.0) Estimated GFR (Cockcroft-Gault) 20.5 Glucose Level 268 mg/dL (70-99) Calcium Level 8.9 mg/dL (8.5-10.1) Phosphorus Level 3.4 mg/dL (2.6-4.7) Albumin 2.6 g/dL (3.4-5.0) Glucose (Fingerstick) 261 mg/dL (70-99) O2 Saturation 94 % (92-99) Arterial Blood pH 7.38 (7.35-7.45) Arterial Blood pCO2 at Patient Temp 36 mmHg (35-46) Arterial Blood pO2 at Patient Temp 75 mmHg (75-108) Arterial Blood HCO3 21 mmol/L (21-28) Arterial Blood Base Excess -4 mmol/L (-3-3) FiO2 35 Laboratory Tests Test 07/29/19 12:29 07/29/19 18:12 07/30/19 00:26 07/30/19 06:10 Glucose (Fingerstick) 247 mg/dL (70-99) 270 mg/dL (70-99) 272 mg/dL (70-99) Sodium Level 135 mmol/L (136-145) Potassium Level 3.6 mmol/L (3.5-5.1) Chloride Level 98 mmol/L (98-107) Carbon Dioxide Level 25 mmol/L (21-32) Anion Gap 12 (6-14) Blood Urea Nitrogen 72 mg/dL (7-20) Creatinine 2.5 mg/dL (0.6-1.0) Estimated GFR (Cockcroft-Gault) 20.5 Glucose Level 268 mg/dL (70-99) Calcium Level 8.9 mg/dL (8.5-10.1) Phosphorus Level 3.4 mg/dL (2.6-4.7) Albumin 2.6 g/dL (3.4-5.0) Test 07/30/19 06:11 07/30/19 08:00 Glucose (Fingerstick) 261 mg/dL (70-99) O2 Saturation 94 % (92-99) Arterial Blood pH 7.38 (7.35-7.45) Arterial Blood pCO2 at Patient Temp 36 mmHg (35-46) Arterial Blood pO2 at Patient Temp 75 mmHg (75-108) Arterial Blood HCO3 21 mmol/L (21-28) Arterial Blood Base Excess -4 mmol/L (-3-3) FiO2 35 Microbiology 07/24/19 Blood Culture - Final, Complete NO GROWTH AFTER 5 DAYS 07/23/19 Urine Culture - Final, Complete 07/23/19 Urine Culture Result 1 (ALEXANDRA) - Final, Complete Medications Current Medications Sodium Chloride 1,000 ml @ 1,000 mls/hr Q1H IV Last administered on 07/04/19at 03:00; Start 07/04/19 at 03:00; Stop 07/04/19 at 03:59; Status DC Ondansetron HCl (Zofran) 4 mg 1X ONCE IVP Last administered on 07/04/19at 03:27; Start 07/04/19 at 03:00; Stop 07/04/19 at 03:01; Status DC Morphine Sulfate (Morphine Sulfate) 4 mg 1X ONCE IV ; Start 07/04/19 at 03:00; Stop 07/04/19 at 03:01; Status Cancel Ketorolac Tromethamine (Toradol 30mg Vial) 30 mg 1X ONCE IV Last administered on 07/04/19at 02:54; Start 07/04/19 at 03:00; Stop 07/04/19 at 03:01; Status DC Fentanyl Citrate (Fentanyl 2ml Vial) 25 mcg 1X ONCE IVP Last administered on 07/04/19at 03:23; Start 07/04/19 at 03:30; Stop 07/04/19 at 03:31; Status DC Fentanyl Citrate (Fentanyl 2ml Vial) 100 mcg STK-MED ONCE .ROUTE ; Start 07/04/19 at 03:18; Stop 07/04/19 at 03:18; Status DC Iohexol (Omnipaque 350 Mg/ml) 90 ml 1X ONCE IV Last administered on 07/04/19at 03:25; Start 07/04/19 at 03:30; Stop 07/04/19 at 03:31; Status DC Info (CONTRAST GIVEN -- Rx MONITORING) 1 each PRN DAILY PRN MC SEE COMMENTS; Start 07/04/19 at 03:30; Stop 07/06/19 at 03:29; Status DC Hydromorphone HCl (Dilaudid) 0.5 mg 1X ONCE IV Last administered on 07/04/19at 03:55; Start 07/04/19 at 04:30; Stop 07/04/19 at 04:32; Status DC Ondansetron HCl (Zofran) 4 mg PRN Q8HRS PRN IV NAUSEA/VOMITING 1ST CHOICE; Start 07/04/19 at 05:00; Stop 07/04/19 at 09:27; Status DC Morphine Sulfate (Morphine Sulfate) 2 mg PRN Q2HR PRN IV SEVERE PAIN 7-10 Last administered on 07/05/19at 12:26; Start 07/04/19 at 05:00; Stop 07/05/19 at 14:15; Status DC Sodium Chloride 1,000 ml @ 125 mls/hr Q8H IV Last administered on 07/04/19at 20:56; Start 07/04/19 at 05:00; Stop 07/05/19 at 04:59; Status DC Hydromorphone HCl (Dilaudid) 0.5 mg PRN Q3HRS PRN IV SEVERE PAIN 7-10 Last administered on 07/05/19at 10:06; Start 07/04/19 at 05:00; Stop 07/05/19 at 12:01; Status DC Piperacillin Sod/ Tazobactam Sod 4.5 gm/Sodium Chloride 100 ml @ 200 mls/hr 1X ONCE IV Last administered on 07/04/19at 05:44; Start 07/04/19 at 06:00; Stop 07/04/19 at 06:29; Status DC Ondansetron HCl (Zofran) 4 mg PRN Q4HRS PRN IV NAUSEA/VOMITING 1ST CHOICE Last administered on 07/09/19at 16:15; Start 07/04/19 at 09:30 Insulin Human Lispro (HumaLOG) 0-9 UNITS Q6HRS SQ Last administered on 07/30/19at 06:20; Start 07/04/19 at 09:30 Dextrose (Dextrose 50%-Water Syringe) 12.5 gm PRN Q15MIN PRN IV SEE COMMENTS; Start 07/04/19 at 09:30 Pantoprazole Sodium (PROTONIX VIAL for IV PUSH) 40 mg DAILYAC IVP Last administered on 07/30/19at 08:51; Start 07/04/19 at 11:30 Prochlorperazine Edisylate (Compazine) 10 mg PRN Q6HRS PRN IV NAUSEA/VOMITING, 2nd CHOICE Last administered on 07/05/19at 00:42; Start 07/04/19 at 17:45 Atenolol (Tenormin) 100 mg DAILY PO ; Start 07/05/19 at 09:00; Stop 07/04/19 at 20:08; Status DC Metoprolol Tartrate (Lopressor Vial) 2.5 mg Q6HRS IVP Last administered on 07/05/19at 05:51; Start 07/04/19 at 20:15; Stop 07/05/19 at 10:02; Status DC Metoprolol Tartrate (Lopressor Vial) 5 mg Q6HRS IVP Last administered on 07/13at 00:12; Start 07/05/19 at 10:15; Stop 07/16/19 at 08:48; Status DC Hydromorphone HCl (Dilaudid) 1 mg PRN Q3HRS PRN IV SEVERE PAIN 7-10 Last administered on 07/11/19at 05:13; Start 07/05/19 at 12:00; Stop 07/19/19 at 00:25; Status DC Lidocaine HCl (Buffered Lidocaine 1%) 3 ml STK-MED ONCE .ROUTE ; Start 07/05/19 at 12:55; Stop 07/05/19 at 12:56; Status DC Albumin Human 500 ml @ 125 mls/hr 1X ONCE IV Last administered on 07/05/19at 14:33; Start 07/05/19 at 14:30; Stop 07/05/19 at 18:32; Status DC Norepinephrine Bitartrate 8 mg/ Dextrose 258 ml @ 17.299 mls/ hr CONT PRN IV PER PROTOCOL Last administered on 07/29/19at 13:31; Start 07/05/19 at 15:30 Sodium Chloride 1,000 ml @ 125 mls/hr Q8H IV Last administered on 07/05/19at 21:04; Start 07/05/19 at 16:00; Stop 07/06/19 at 02:42; Status DC Albumin Human 500 ml @ 125 mls/hr PRN BID PRN IV After every 2L NSS & BP < 90mm Last administered on 07/20/19at 14:21; Start 07/05/19 at 16:00 Iohexol (Omnipaque 300 Mg/ml) 60 ml 1X ONCE IV Last administered on 07/05/19at 17:20; Start 07/05/19 at 17:00; Stop 07/05/19 at 17:01; Status DC Info (CONTRAST GIVEN -- Rx MONITORING) 1 each PRN DAILY PRN MC SEE COMMENTS; Start 07/05/19 at 17:00; Stop 07/07/19 at 16:59; Status DC Meropenem 1 gm/ Sodium Chloride 100 ml @ 200 mls/hr Q8HRS IV Last administered on 07/06/19at 05:45; Start 07/05/19 at 20:00; Stop 07/06/19 at 08:48; Status DC Furosemide (Lasix) 40 mg 1X ONCE IVP Last administered on 07/05/19at 22:12; Start 07/05/19 at 22:30; Stop 07/05/19 at 22:31; Status DC Calcium Chloride 1000 mg/Sodium Chloride 110 ml @ 220 mls/hr 1X ONCE IV Last administered on 07/05/19at 22:11; Start 07/05/19 at 22:30; Stop 07/05/19 at 22:59; Status DC Albuterol Sulfate (Ventolin Neb Soln) 2.5 mg 1X ONCE NEB Last administered on 07/06/19at 00:56; Start 07/05/19 at 22:30; Stop 07/05/19 at 22:31; Status DC Insulin Human Regular (HumuLIN R VIAL) 5 unit 1X ONCE IV Last administered on 07/05/19at 22:14; Start 07/05/19 at 22:30; Stop 07/05/19 at 22:31; Status DC Magnesium Sulfate 50 ml @ 25 mls/hr 1X ONCE IV Last administered on 07/06/19at 02:57; Start 07/06/19 at 03:00; Stop 07/06/19 at 04:59; Status DC Calcium Gluconate 1000 mg/Sodium Chloride 110 ml @ 220 mls/hr 1X ONCE IV Last administered on 07/06/19at 02:46; Start 07/06/19 at 03:00; Stop 07/06/19 at 03:29; Status DC Sodium Chloride 1,000 ml @ 200 mls/hr Q5H IV Last administered on 07/06/19at 02:46; Start 07/06/19 at 03:00; Stop 07/06/19 at 10:21; Status DC Calcium Gluconate 1000 mg/Sodium Chloride 110 ml @ 220 mls/hr 1X ONCE IV Last administered on 07/06/19at 03:21; Start 07/06/19 at 03:30; Stop 07/06/19 at 03:59; Status DC Sodium Bicarbonate 50 meq/Sodium Chloride 1,050 ml @ 75 mls/hr Q14H IV Last administered on 07/10/19at 21:10; Start 07/06/19 at 07:30; Stop 07/11/19 at 10:28; Status DC Calcium Gluconate 2000 mg/Sodium Chloride 120 ml @ 220 mls/hr 1X ONCE IV Last administered on 07/06/19at 09:05; Start 07/06/19 at 07:30; Stop 07/06/19 at 08:02; Status DC Lidocaine HCl (Xylocaine-Mpf 1% 2ml Vial) 2 ml STK-MED ONCE .ROUTE ; Start 07/06/19 at 08:47; Stop 07/06/19 at 08:47; Status DC Meropenem 500 mg/ Sodium Chloride 50 ml @ 100 mls/hr Q12HR IV Last administered on 07/11/19at 21:01; Start 07/06/19 at 18:00; Stop 07/12/19 at 07:58; Status DC Lidocaine HCl (Buffered Lidocaine 1%) 3 ml STK-MED ONCE .ROUTE ; Start 07/06/19 at 09:46; Stop 07/06/19 at 09:46; Status DC Lidocaine HCl (Buffered Lidocaine 1%) 6 ml 1X ONCE INJ Last administered on 07/06/19at 10:26; Start 07/06/19 at 10:15; Stop 07/06/19 at 10:16; Status DC Info (Tpn Per Pharmacy) 1 each PRN DAILY PRN MC SEE COMMENTS Last administered on 07/29/19at 11:58; Start 07/06/19 at 12:00 Sodium Chloride 1,000 ml @ 1,000 mls/hr Q1H PRN IV hypotension; Start 07/06/19 at 12:07; Stop 07/06/19 at 18:06; Status DC Diphenhydramine HCl (Benadryl) 25 mg 1X PRN PRN IV ITCHING; Start 07/06/19 at 12:15; Stop 07/07/19 at 12:14; Status DC Diphenhydramine HCl (Benadryl) 25 mg 1X PRN PRN IV ITCHING; Start 07/06/19 at 12:15; Stop 07/07/19 at 12:14; Status DC Sodium Chloride 1,000 ml @ 400 mls/hr Q2H30M PRN IV PATENCY; Start 07/06/19 at 12:07; Stop 07/07/19 at 00:06; Status DC Info (PHARMACY MONITORING -- do not chart) 1 each PRN DAILY PRN MC SEE COMMENTS; Start 07/06/19 at 12:15; Stop 07/08/19 at 08:13; Status DC Sodium Chloride 90 meq/Calcium Gluconate 10 meq/ Multivitamins 10 ml/Chromium/ Copper/Manganese/ Seleni/Zn 1 ml/ Total Parenteral Nutrition/Amino Acids/Dextrose/ Fat Emulsion Intravenous 55.005 ml @ 2.292 mls/hr TPN CONT IV ; Start 07/06/19 at 22:00; Stop 07/06/19 at 12:33; Status DC Info (Tpn Per Pharmacy) 1 each PRN DAILY PRN MC SEE COMMENTS; Start 07/06/19 at 12:30; Status UNV Sodium Chloride 90 meq/Calcium Gluconate 10 meq/ Multivitamins 10 ml/Chromium/ Copper/Manganese/ Seleni/Zn 0.5 ml/ Total Parenteral Nutrition/Amino Acids/Dextrose/ Fat Emulsion Intravenous 1,512 ml @ 63 mls/hr TPN CONT IV Last administered on 07/06/19at 22:06; Start 07/06/19 at 22:00; Stop 07/07/19 at 21:59; Status DC Calcium Carbonate/ Glycine (Tums) 500 mg PRN AFTMEALHC PRN PO INDIGESTION; Start 07/06/19 at 17:45 Calcium Gluconate (Calcium Gluconate) 2,000 mg 1X ONCE IVP Last administered on 07/07/19at 02:19; Start 07/07/19 at 02:15; Stop 07/07/19 at 02:16; Status DC Calcium Chloride 3000 mg/Sodium Chloride 1,030 ml @ 50 mls/hr [id number] IV Last administered on 07/09/19at 02:17; Start 07/07/19 at 08:00; Stop 07/09/19 at 15:23; Status DC Lorazepam (Ativan Inj) 1 mg PRN Q4HRS PRN IVP ANXIETY / AGITATION Last administered on 07/11/19at 00:34; Start 07/07/19 at 09:00 Sodium Chloride 1,000 ml @ 1,000 mls/hr Q1H PRN IV hypotension; Start 07/07/19 at 08:56; Stop 07/07/19 at 14:55; Status DC Albumin Human 200 ml @ 200 mls/hr 1X PRN PRN IV Hypotension; Start 07/07/19 at 09:00; Stop 07/07/19 at 14:59; Status DC Diphenhydramine HCl (Benadryl) 25 mg 1X PRN PRN IV ITCHING; Start 07/07/19 at 09:00; Stop 07/08/19 at 08:59; Status DC Diphenhydramine HCl (Benadryl) 25 mg 1X PRN PRN IV ITCHING; Start 07/07/19 at 09:00; Stop 07/08/19 at 08:59; Status DC Sodium Chloride 1,000 ml @ 400 mls/hr Q2H30M PRN IV PATENCY; Start 07/07/19 at 08:56; Stop 07/07/19 at 20:55; Status DC Info (PHARMACY MONITORING -- do not chart) 1 each PRN DAILY PRN MC SEE COMMENTS; Start 07/07/19 at 09:00; Status UNV Info (PHARMACY MONITORING -- do not chart) 1 each PRN DAILY PRN MC SEE COMMENTS; Start 07/07/19 at 09:00; Stop 07/08/19 at 08:13; Status DC Digoxin (Lanoxin) 500 mcg 1X ONCE IV Last administered on 07/07/19at 10:04; Start 07/07/19 at 10:00; Stop 07/07/19 at 10:01; Status DC Digoxin (Lanoxin) 125 mcg 1X ONCE IV Last administered on 07/07/19at 17:10; Start 07/07/19 at 18:00; Stop 07/07/19 at 18:01; Status DC Magnesium Sulfate 100 ml @ 25 mls/hr 1X ONCE IV Last administered on 07/07/19at 12:48; Start 07/07/19 at 13:00; Stop 07/07/19 at 16:59; Status DC Sodium Chloride 90 meq/Magnesium Sulfate 10 meq/ Calcium Gluconate 20 meq/ Multivitamins 10 ml/Chromium/ Copper/Manganese/ Seleni/Zn 0.5 ml/ Total Parenteral Nutrition/Amino Acids/Dextrose/ Fat Emulsion Intravenous 1,512 ml @ 63 mls/hr TPN CONT IV Last administered on 07/07/19at 22:25; Start 07/07/19 at 22:00; Stop 07/08/19 at 21:59; Status DC Sodium Chloride 1,000 ml @ 1,000 mls/hr Q1H PRN IV hypotension; Start 07/08/19 at 08:05; Stop 07/08/19 at 14:04; Status DC Albumin Human 200 ml @ 200 mls/hr 1X ONCE IV Last administered on 07/08/19at 08:57; Start 07/08/19 at 08:15; Stop 07/08/19 at 09:14; Status DC Diphenhydramine HCl (Benadryl) 25 mg 1X PRN PRN IV ITCHING; Start 07/08/19 at 08:15; Stop 07/09/19 at 08:14; Status DC Diphenhydramine HCl (Benadryl) 25 mg 1X PRN PRN IV ITCHING; Start 07/08/19 at 08:15; Stop 07/09/19 at 08:14; Status DC Sodium Chloride 1,000 ml @ 400 mls/hr Q2H30M PRN IV PATENCY; Start 07/08/19 at 08:05; Stop 07/08/19 at 20:04; Status DC Info (PHARMACY MONITORING -- do not chart) 1 each PRN DAILY PRN MC SEE COMMENTS; Start 07/08/19 at 08:15; Stop 07/12/19 at 07:57; Status DC Sodium Chloride 90 meq/Potassium Chloride 15 meq/ Potassium Phosphate 10 mmol/ Magnesium Sulfate 10 meq/Calcium Gluconate 20 meq/ Multivitamins 10 ml/Chromium/ Copper/Manganese/ Seleni/Zn 0.5 ml/ Total Parenteral Nutrition/Amino Acids/Dextrose/ Fat Emulsion Intravenous 1,512 ml @ 63 mls/hr TPN CONT IV Last administered on 07/08/19at 21:01; Start 07/08/19 at 22:00; Stop 07/09/19 at 21:59; Status DC Potassium Chloride/Water 100 ml @ 100 mls/hr 1X ONCE IV Last administered on 07/08/19at 14:09; Start 07/08/19 at 14:00; Stop 07/08/19 at 14:59; Status DC Benzocaine (Hurricaine One) 1 spray 1X ONCE MM Last administered on 07/08/19at 16:38; Start 07/08/19 at 14:30; Stop 07/08/19 at 14:31; Status DC Lidocaine HCl (Glydo (Lidocaine) Jelly) 1 ramu 1X ONCE MM Last administered on 07/08/19at 16:38; Start 07/08/19 at 14:30; Stop 07/08/19 at 14:31; Status DC Linezolid/Dextrose 300 ml @ 300 mls/hr Q12HR IV Last administered on 07/14/19at 21:04; Start 07/08/19 at 20:00; Stop 07/15/19 at 07:50; Status DC Acetaminophen (Tylenol) 650 mg PRN Q6HRS PRN PO MILD PAIN / TEMP; Start 07/09/19 at 03:30; Stop 07/09/19 at 03:36; Status DC Acetaminophen (Tylenol) 650 mg PRN Q6HRS PRN PEG MILD PAIN / TEMP Last administered on 07/14/19at 07:35; Start 07/09/19 at 03:36 Sodium Chloride 1,000 ml @ 1,000 mls/hr Q1H PRN IV hypotension; Start 07/09/19 at 07:50; Stop 07/09/19 at 13:49; Status DC Albumin Human 200 ml @ 200 mls/hr 1X PRN PRN IV Hypotension; Start 07/09/19 at 08:00; Stop 07/09/19 at 13:59; Status DC Sodium Chloride (Normal Saline Flush) 10 ml 1X PRN PRN IV AP catheter pack; Start 07/09/19 at 08:00; Stop 07/10/19 at 07:59; Status DC Sodium Chloride (Normal Saline Flush) 10 ml 1X PRN PRN IV MACHINE DEBURRER catheter pack; Start 07/09/19 at 08:00; Stop 07/10/19 at 07:59; Status DC Sodium Chloride 1,000 ml @ 400 mls/hr Q2H30M PRN IV PATENCY; Start 07/09/19 at 07:50; Stop 07/09/19 at 19:49; Status DC Info (PHARMACY MONITORING -- do not chart) 1 each PRN DAILY PRN MC SEE COMMENTS; Start 07/09/19 at 08:00; Status UNV Info (PHARMACY MONITORING -- do not chart) 1 each PRN DAILY PRN MC SEE COMMENTS; Start 07/09/19 at 08:00; Stop 07/11/19 at 08:25; Status DC Sodium Chloride 90 meq/Potassium Chloride 15 meq/ Potassium Phosphate 10 mmol/ Magnesium Sulfate 10 meq/Calcium Gluconate 20 meq/ Multivitamins 10 ml/Chromium/ Copper/Manganese/ Seleni/Zn 0.5 ml/ Total Parenteral Nutrition/Amino Acids/Dextrose/ Fat Emulsion Intravenous 1,512 ml @ 63 mls/hr TPN CONT IV Last administered on 07/09/19at 20:57; Start 07/09/19 at 22:00; Stop 07/10/19 at 21:59; Status DC Sodium Chloride 90 meq/Potassium Chloride 15 meq/ Potassium Phosphate 15 mmol/ Magnesium Sulfate 10 meq/Calcium Gluconate 20 meq/ Multivitamins 10 ml/Chromium/ Copper/Manganese/ Seleni/Zn 0.5 ml/ Total Parenteral Nutrition/Amino Acids/Dextrose/ Fat Emulsion Intravenous 1,512 ml @ 63 mls/hr TPN CONT IV ; Start 07/10/19 at 22:00; Stop 07/10/19 at 14:16; Status DC Sodium Chloride 90 meq/Potassium Chloride 15 meq/ Potassium Phosphate 15 mmol/ Magnesium Sulfate 10 meq/Calcium Gluconate 20 meq/ Multivitamins 10 ml/Chromium/ Copper/Manganese/ Seleni/Zn 0.5 ml/ Total Parenteral Nutrition/Amino Acids/Dextrose/ Fat Emulsion Intravenous 1,200 ml @ 50 mls/hr TPN CONT IV ; Start 07/10/19 at 22:00; Stop 07/10/19 at 14:17; Status DC Sodium Chloride 90 meq/Potassium Chloride 15 meq/ Potassium Phosphate 10 mmol/ Magnesium Sulfate 10 meq/Calcium Gluconate 20 meq/ Multivitamins 10 ml/Chromium/ Copper/Manganese/ Seleni/Zn 0.5 ml/ Total Parenteral Nutrition/Amino Acids/Dextrose/ Fat Emulsion Intravenous 1,200 ml @ 50 mls/hr TPN CONT IV [place] st administered on 07/10/19at 23:29; Start 07/10/19 at 22:00; Stop 07/11/19 at 21:59; Status DC Sodium Chloride 1,000 ml @ 1,000 mls/hr Q1H PRN IV hypotension; Start 07/11/19 at 07:28; Stop 07/11/19 at 13:27; Status DC Albumin Human 200 ml @ 200 mls/hr 1X ONCE IV Last administered on 07/11/19at 08:51; Start 07/11/19 at 07:30; Stop 07/11/19 at 08:29; Status DC Diphenhydramine HCl (Benadryl) 25 mg 1X PRN PRN IV ITCHING; Start 07/11/19 at 07:30; Stop 07/12/19 at 07:29; Status DC Diphenhydramine HCl (Benadryl) 25 mg 1X PRN PRN IV ITCHING; Start 07/11/19 at 07:30; Stop 07/12/19 at 07:29; Status DC Sodium Chloride 1,000 ml @ 400 mls/hr Q2H30M PRN IV PATENCY; Start 07/11/19 at 07:28; Stop 07/11/19 at 19:27; Status DC Info (PHARMACY MONITORING -- do not chart) 1 each PRN DAILY PRN MC SEE COMMENTS; Start 07/11/19 at 07:30; Stop 07/22/19 at 13:01; Status DC Metronidazole 100 ml @ 100 mls/hr Q6HRS IV Last administered on 07/27/19at 06:26; Start 07/11/19 at 08:30; Stop 07/27/19 at 09:58; Status DC Micafungin Sodium 100 mg/Dextrose 100 ml @ 100 mls/hr Q24H IV Last administered on 07/30/19at 08:52; Start 07/11/19 at 09:00 Propofol 0 ml @ As Directed STK-MED ONCE IV ; Start 07/11/19 at 07:53; Stop 07/11/19 at 07:53; Status DC Etomidate (Amidate) 20 mg STK-MED ONCE IV ; Start 07/11/19 at 07:53; Stop 07/11/19 at 07:54; Status DC Midazolam HCl (Versed) 5 mg STK-MED ONCE .ROUTE ; Start 07/11/19 at 07:57; Stop 07/11/19 at 07:57; Status DC Fentanyl Citrate 30 ml @ 0 mls/hr CONT PRN IV SEE PROTOCOL Last administered on 07/30/19at 08:23; Start 07/11/19 at 08:15 Artificial Tears (Artificial Tears) 1 drop PRN Q1HR PRN OU DRY EYE, 1st choice; Start 07/11/19 at 08:15 Midazolam HCl 50 mg/Sodium Chloride 50 ml @ 0 mls/hr CONT PRN IV SEE PROTOCOL Last administered on 07/14/19at 22:39; Start 07/11/19 at 08:15; Stop 07/16/19 at 15:59; Status DC Etomidate (Amidate) 8 mg 1X ONCE IV Last administered on 07/11/19at 08:33; Start 07/11/19 at 08:30; Stop 07/11/19 at 08:31; Status DC Succinylcholine Chloride (Anectine) 120 mg 1X ONCE IV Last administered on 07/11/19at 08:34; Start 07/11/19 at 08:30; Stop 07/11/19 at 08:31; Status DC Midazolam HCl (Versed) 5 mg 1X ONCE IV ; Start 07/11/19 at 08:30; Stop 07/11/19 at 08:31; Status DC Potassium Chloride 15 meq/ Bicarbonate Dialysis Soln w/ out KCl 5,007.5 ml @ 1,000 mls/ hr Q5H1M IV Last administered on 07/12/19at 11:11; Start 07/11/19 at 12:00; Stop 07/12/19 at 11:15; Status DC Potassium Chloride 15 meq/ Bicarbonate Dialysis Soln w/ out KCl 5,007.5 ml @ 1,000 mls/ hr Q5H1M IV Last administered on 07/12/19at 11:12; Start 07/11/19 at 12:00; Stop 07/12/19 at 11:17; Status DC Potassium Chloride 15 meq/ Bicarbonate Dialysis Soln w/ out KCl 5,007.5 ml @ 1,000 mls/ hr Q5H1M IV Last administered on 07/12/19at 11:11; Start 07/11/19 at 12:00; Stop 07/12/19 at 11:19; Status DC Sodium Chloride 90 meq/Potassium Chloride 15 meq/ Potassium Phosphate 10 mmol/ Magnesium Sulfate 10 meq/Calcium Gluconate 20 meq/ Multivitamins 10 ml/Chromium/ Copper/Manganese/ Seleni/Zn 0.5 ml/ Total Parenteral Nutrition/Amino Acids/Dextrose/ Fat Emulsion Intravenous 1,400 ml @ 58.333 mls/ hr TPN CONT IV Last administered on 07/11/19at 21:42; Start 07/11/19 at 22:00; Stop 07/12/19 at 21:59; Status DC Heparin Sodium (Porcine) (Heparin Sodium) 5,000 unit Q8HRS SQ Last administered on 07/16/19at 05:55; Start 07/11/19 at 15:00; Stop 07/16/19 at 13:28; Status DC Meropenem 500 mg/ Sodium Chloride 50 ml @ 100 mls/hr Q6HRS IV Last administered on 07/13/19at 06:00; Start 07/12/19 at 09:00; Stop 07/13/19 at 07:29; Status DC Potassium Phosphate 20 mmol/ Sodium Chloride 106.6667 ml @ 51.667 m... 1X ONCE IV Last administered on 07/12/19at 11:22; Start 07/12/19 at 10:15; Stop 07/12/19 at 12:18; Status DC Acetaminophen (Tylenol Supp) 650 mg PRN Q6HRS PRN NV MILD PAIN / TEMP Last administered on 07/28/19at 22:30; Start 07/12/19 at 10:30 Potassium Chloride/Water 100 ml @ 100 mls/hr Q1H IV Last administered on 07/12/19at 12:12; Start 07/12/19 at 11:00; Stop 07/12/19 at 12:59; Status DC Potassium Chloride 20 meq/ Bicarbonate Dialysis Soln w/ out KCl 5,010 ml @ 1,000 mls/hr Q5H1M IV Last administered on 07/13/19at 08:48; Start 07/12/19 at 12:00; Stop 07/13/19 at 13:03; Status DC Potassium Chloride 20 meq/ Bicarbonate Dialysis Soln w/ out KCl 5,010 ml @ 1,000 mls/hr Q5H1M IV Last administered on 07/17/19at 14:52; Start 07/12/19 at 11:30; Stop 07/17/19 at 19:59; Status DC Potassium Chloride 20 meq/ Bicarbonate Dialysis Soln w/ out KCl 5,010 ml @ 1,000 mls/hr Q5H1M IV Last administered on 07/17/19at 14:53; Start 07/12/19 at 11:30; Stop 07/17/19 at 19:59; Status DC Sodium Chloride 90 meq/Potassium Chloride 15 meq/ Potassium Phosphate 15 mmol/ Magnesium Sulfate 10 meq/Calcium Gluconate 15 meq/ Multivitamins 10 ml/Chromium/ Copper/Manganese/ Seleni/Zn 0.5 ml/ Total Parenteral Nutrition/Amino Acids/Dextrose/ Fat Emulsion Intravenous 1,400 ml @ 58.333 mls/ hr TPN CONT IV Last administered on 07/12/19at 22:17; Start 07/12/19 at 22:00; Stop 07/13/19 at 21:59; Status DC Cefepime HCl (Maxipime) 2 gm Q12HR IVP Last administered on 07/26/19at 20:56; Start 07/13/19 at 09:00; Stop 07/27/19 at 09:58; Status DC Daptomycin 500 mg/ Sodium Chloride 50 ml @ 100 mls/hr Q48H IV Last administered on 07/29/19at 09:57; Start 07/13/19 at 08:30; Stop 07/29/19 at 10:07; Status DC Lidocaine HCl (Buffered Lidocaine 1%) 3 ml 1X ONCE INJ Last administered on 07/13/19at 10:27; Start 07/13/19 at 10:30; Stop 07/13/19 at 10:31; Status DC Potassium Phosphate 20 mmol/ Sodium Chloride 106.6667 ml @ 51.667 m... 1X ONCE IV Last administered on 07/13/19at 12:51; Start 07/13/19 at 13:00; Stop 07/13/19 at 15:03; Status DC Sodium Chloride 90 meq/Potassium Chloride 15 meq/ Potassium Phosphate 18 mmol/ Magnesium Sulfate 8 meq/Calcium Gluconate 15 meq/ Multivitamins 10 ml/Chromium/ Copper/Manganese/ Seleni/Zn 0.5 ml/ Total Parenteral Nutrition/Amino Acids/Dextrose/ Fat Emulsion Intravenous 1,400 ml @ 58.333 mls/ hr TPN CONT IV Last administered on 07/13/19at 22:16; Start 07/13/19 at 22:00; Stop 07/14/19 at 21:59; Status DC Potassium Chloride 20 meq/ Bicarbonate Dialysis Soln w/ out KCl 5,010 ml @ 1,000 mls/hr Q5H1M IV Last administered on 07/17/19at 14:54; Start 07/13/19 at 16:00; Stop 07/17/19 at 19:59; Status DC Multi-Ingred Cream/Lotion/Oil/ Oint (Artificial Tears Eye Ointment) 1 ramu PRN Q1HR PRN OU DRY EYE, 2nd choice Last administered on 07/22/19at 11:05; Start 07/13/19 at 17:30 Sodium Chloride 90 meq/Potassium Chloride 15 meq/ Potassium Phosphate 18 mmol/ Magnesium Sulfate 8 meq/Calcium Gluconate 15 meq/ Multivitamins 10 ml/Chromium/ Copper/Manganese/ Seleni/Zn 0.5 ml/ Total Parenteral Nutrition/Amino Acids/Dextrose/ Fat Emulsion Intravenous 1,400 ml @ 58.333 mls/ hr TPN CONT IV Last administered on 07/14/19at 22:00; Start 07/14/19 at 22:00; Stop 07/15/19 at 21:59; Status DC Albumin Human 500 ml @ 125 mls/hr 1X ONCE IV ; Start 07/14/19 at 14:15; Stop 07/14/19 at 18:14; Status DC Sodium Chloride 90 meq/Potassium Chloride 15 meq/ Potassium Phosphate 18 mmol/ Magnesium Sulfate 8 meq/Calcium Gluconate 15 meq/ Multivitamins 10 ml/Chromium/ Copper/Manganese/ Seleni/Zn 0.5 ml/ Insulin Human Regular 10 unit/ Total Parenteral Nutrition/Amino Acids/Dextrose/ Fat Emulsion Intravenous 1,400 ml @ 58.333 mls/ hr TPN CONT IV Last administered on 07/15/19at 21:43; Start 07/15/19 at 22:00; Stop 07/16/19 at 21:59; Status DC Lidocaine HCl (Buffered Lidocaine 1%) 3 ml STK-MED ONCE .ROUTE ; Start 07/13/19 at 10:00; Stop 07/15/19 at 13:57; Status DC Midazolam HCl 100 mg/Sodium Chloride 100 ml @ 7 mls/hr CONT PRN IV SEE PROTOCOL Last administered on 07/27/19at 15:35; Start 07/16/19 at 16:00 Sodium Chloride 90 meq/Potassium Chloride 15 meq/ Potassium Phosphate 18 mmol/ Magnesium Sulfate 8 meq/Calcium Gluconate 15 meq/ Multivitamins 10 ml/Chromium/ Copper/Manganese/ Seleni/Zn 0.5 ml/ Insulin Human Regular 15 unit/ Total Parenteral Nutrition/Amino Acids/Dextrose/ Fat Emulsion Intravenous 1,400 ml @ 58.333 mls/ hr TPN CONT IV Last administered on 07/16/19at 20:34; Start 07/16/19 at 22:00; Stop 07/17/19 at 21:59; Status DC Info (Icu Electrolyte Protocol) 1 ea CONT PRN PRN MC PER PROTOCOL; Start 07/17/19 at 13:15 Sodium Chloride 90 meq/Potassium Chloride 15 meq/ Potassium Phosphate 18 mmol/ Magnesium Sulfate 8 meq/Calcium Gluconate 15 meq/ Multivitamins 10 ml/Chromium/ Copper/Manganese/ Seleni/Zn 0.5 ml/ Insulin Human Regular 15 unit/ Total Parenteral Nutrition/Amino Acids/Dextrose/ Fat Emulsion Intravenous 1,400 ml @ 58.333 mls/ hr TPN CONT IV Last administered on 07/17/19at 22:05; Start 07/17/19 at 22:00; Stop 07/18/19 at 21:59; Status DC Potassium Chloride 15 meq/ Bicarbonate Dialysis Soln w/ out KCl 5,007.5 ml @ 1,000 mls/ hr Q5H1M IV Last administered on 07/20/19at 18:14; Start 07/17/19 at 20:00; Stop 07/21/19 at 13:08; Status DC Potassium Chloride 15 meq/ Bicarbonate Dialysis Soln w/ out KCl 5,007.5 ml @ 1,000 mls/ hr Q5H1M IV Last administered on 07/20/19at 18:14; Start 07/17/19 at 20:00; Stop 07/21/19 at 13:08; Status DC Potassium Chloride 15 meq/ Bicarbonate Dialysis Soln w/ out KCl 5,007.5 ml @ 1,000 mls/ hr Q5H1M IV Last administered on 07/20/19at 18:14; Start 07/17/19 at 20:00; Stop 07/21/19 at 13:08; Status DC Iohexol (Omnipaque 240 Mg/ml) 30 ml 1X ONCE PO Last administered on 07/18/19at 11:30; Start 07/18/19 at 11:30; Stop 07/18/19 at 11:33; Status DC Info (CONTRAST GIVEN -- Rx MONITORING) 1 each PRN DAILY PRN MC SEE COMMENTS; Start 07/18/19 at 11:45; Stop 07/20/19 at 11:44; Status DC Sodium Chloride 90 meq/Potassium Chloride 15 meq/ Potassium Phosphate 18 mmol/ Magnesium Sulfate 8 meq/Calcium Gluconate 15 meq/ Multivitamins 10 ml/Chromium/ Copper/Manganese/ Seleni/Zn 0.5 ml/ Insulin Human Regular 15 unit/ Total Parenteral Nutrition/Amino Acids/Dextrose/ Fat Emulsion Intravenous 1,400 ml @ 58.333 mls/ hr TPN CONT IV Last administered on 07/18/19at 21:47; Start 07/18/19 at 22:00; Stop 07/19/19 at 21:59; Status DC Sodium Chloride 90 meq/Potassium Chloride 15 meq/ Potassium Phosphate 18 mmol/ Magnesium Sulfate 8 meq/Calcium Gluconate 15 meq/ Multivitamins 10 ml/Chromium/ Copper/Manganese/ Seleni/Zn 0.5 ml/ Insulin Human Regular 20 unit/ Total Parenteral Nutrition/Amino Acids/Dextrose/ Fat Emulsion Intravenous 1,400 ml @ 58.333 mls/ hr TPN CONT IV Last administered on 07/19/19at 21:36; Start at 22:00; Stop 07/20/19 at 21:59; Status DC Alteplase, Recombinant (Cathflo For Central Catheter Clearance) 1 mg 1X ONCE INT CAT Last administered on 07/19/19at 20:03; Start 07/19/19 at 19:30; Stop 07/19/19 at 19:46; Status DC Alteplase, Recombinant (Cathflo For Central Catheter Clearance) 1 mg 1X ONCE INT CAT Last administered on 07/19/19at 22:05; Start 07/19/19 at 22:00; Stop 07/19/19 at 22:01; Status DC Sodium Chloride 90 meq/Potassium Chloride 15 meq/ Potassium Phosphate 18 mmol/ Magnesium Sulfate 8 meq/Calcium Gluconate 15 meq/ Multivitamins 10 ml/Chromium/ Copper/Manganese/ Seleni/Zn 0.5 ml/ Insulin Human Regular 20 unit/ Total Parenteral Nutrition/Amino Acids/Dextrose/ Fat Emulsion Intravenous 1,400 ml @ 58.333 mls/ hr TPN CONT IV Last administered on 07/20/19at 21:30; Start 07/20/19 at 22:00; Stop 07/21/19 at 21:59; Status DC Dexmedetomidine HCl 400 mcg/ Sodium Chloride 100 ml @ 0 mls/hr CONT PRN IV ANXIETY / AGITATION Last administered on 07/30/19at 06:09; Start 07/21/19 at 08:15 Sodium Chloride 500 ml @ 500 mls/hr 1X PRN PRN IV ELEVATED BP, SEE COMMENTS; Start 07/21/19 at 08:15 Atropine Sulfate (ATROPINE 0.5mg SYRINGE) 0.5 mg PRN Q5MIN PRN IV SEE COMMENTS; Start 07/21/19 at 08:15 Furosemide (Lasix) 20 mg 1X ONCE IVP Last administered on 07/21/19at 08:19; Start 07/21/19 at 08:15; Stop 07/21/19 at 08:16; Status DC Lidocaine HCl (Buffered Lidocaine 1%) 3 ml STK-MED ONCE .ROUTE ; Start 07/21/19 at 08:39; Stop 07/21/19 at 08:39; Status DC Lidocaine HCl (Buffered Lidocaine 1%) 6 ml 1X ONCE INJ Last administered on 07/21/19at 09:05; Start 07/21/19 at 09:00; Stop 07/21/19 at 09:06; Status DC Sodium Chloride 90 meq/Potassium Chloride 15 meq/ Potassium Phosphate 18 mmol/ Magnesium Sulfate 8 meq/Calcium Gluconate 15 meq/ Multivitamins 10 ml/Chromium/ Copper/Manganese/ Seleni/Zn 0.5 ml/ Insulin Human Regular 20 unit/ Total Parenteral Nutrition/Amino Acids/Dextrose/ Fat Emulsion Intravenous 1,400 ml @ 58.333 mls/ hr TPN CONT IV Last administered on 07/21/19at 22:45; Start 07/21/19 at 22:00; Stop 07/22/19 at 21:59; Status DC Sodium Chloride 1,000 ml @ 1,000 mls/hr Q1H PRN IV hypotension; Start 07/22/19 at 07:30; Stop 07/22/19 at 13:29; Status DC Albumin Human 200 ml @ 200 mls/hr 1X PRN PRN IV Hypotension Last administered on 07/22/19at 09:36; Start 07/22/19 at 07:30; Stop 07/22/19 at 13:29; Status DC Sodium Chloride (Normal Saline Flush) 10 ml 1X PRN PRN IV AP catheter pack; Start 07/22/19 at 07:30; Stop 07/22/19 at 21:29; Status DC Sodium Chloride (Normal Saline Flush) 10 ml 1X PRN PRN IV MACHINE DEBURRER catheter pack; Start 07/22/19 at 07:30; Stop 07/23/19 at 07:29; Status DC Sodium Chloride 1,000 ml @ 400 mls/hr Q2H30M PRN IV PATENCY; Start 07/22/19 at 07:30; Stop 07/22/19 at 19:29; Status DC Info (PHARMACY MONITORING -- do not chart) 1 each PRN DAILY PRN MC SEE COMMENTS; Start 07/22/19 at 07:30; Stop 07/22/19 at 13:02; Status DC Info (PHARMACY MONITORING -- do not chart) 1 each PRN DAILY PRN MC SEE C OMMENTS; Start 07/22/19 at 07:30; Stop 07/24/19 at 12:45; Status DC Sodium Chloride 90 meq/Potassium Chloride 15 meq/ Potassium Phosphate 10 mmol/ Magnesium Sulfate 8 meq/Calcium Gluconate 15 meq/ Multivitamins 10 ml/Chromium/ Copper/Manganese/ Seleni/Zn 0.5 ml/ Insulin Human Regular 25 unit/ Total Parenteral Nutrition/Amino Acids/Dextrose/ Fat Emulsion Intravenous 1,400 ml @ 58.333 mls/ hr TPN CONT IV Last administered on 07/22/19at 22:19; Start 07/22/19 at 22:00; Stop 07/23/19 at 21:59; Status DC Heparin Sodium (Porcine) (Heparin Sodium) 5,000 unit Q12HR SQ Last administered on 07/30/19at 08:31; Start 07/22/19 at 21:00 Ondansetron HCl (Zofran) 4 mg PRN Q6HRS PRN IV NAUSEA/VOMITING; Start 07/25/19 at 07:00; Stop 07/26/19 at 06:59; Status DC Fentanyl Citrate (Fentanyl 2ml Vial) 25 mcg PRN Q5MIN PRN IV MILD PAIN 1-3; Start 07/25/19 at 07:00; Stop 07/26/19 at 06:59; Status DC Fentanyl Citrate (Fentanyl 2ml Vial) 50 mcg PRN Q5MIN PRN IV MODERATE TO SEVERE PAIN; Start 07/25/19 at 07:00; Stop 07/26/19 at 06:59; Status DC Ringer's Solution 1,000 ml @ 30 mls/hr Q24H IV ; Start 07/25/19 at 07:00; Stop 07/25/19 at 18:59; Status DC Lidocaine HCl (Xylocaine-Mpf 1% 2ml Vial) 2 ml PRN 1X PRN ID PRIOR TO IV START; Start 07/25/19 at 07:00; Stop 07/26/19 at 06:59; Status DC Prochlorperazine Edisylate (Compazine) 5 mg PACU PRN PRN IV NAUSEA, MRX1; Start 07/25/19 at 07:00; Stop 07/26/19 at 06:59; Status DC Sodium Chloride 1,000 ml @ 1,000 mls/hr Q1H PRN IV hypotension; Start 07/23/19 at 09:10; Stop 07/23/19 at 15:09; Status DC Albumin Human 200 ml @ 200 mls/hr 1X PRN PRN IV Hypotension Last administered on 07/23/19at 10:10; Start 07/23/19 at 09:15; Stop 07/23/19 at 15:14; Status DC Sodium Chloride 1,000 ml @ 400 mls/hr Q2H30M PRN IV PATENCY; Start 07/23/19 at 09:10; Stop 07/23/19 at 21:09; Status DC Info (PHARMACY MONITORING -- do not chart) 1 each PRN DAILY PRN MC SEE COMMENTS; Start 07/23/19 at 09:15; Stop 07/24/19 at 12:45; Status DC Info (PHARMACY MONITORING -- do not chart) 1 each PRN DAILY PRN MC SEE COMMENTS; Start 07/23/19 at 09:15; Stop 07/24/19 at 12:45; Status DC Sodium Chloride 90 meq/Potassium Chloride 15 meq/ Potassium Phosphate 10 mmol/ Magnesium Sulfate 8 meq/Calcium Gluconate 15 meq/ Multivitamins 10 ml/Chromium/ Copper/Manganese/ Seleni/Zn 0.5 ml/ Insulin Human Regular 25 unit/ Total Parenteral Nutrition/Amino Acids/Dextrose/ Fat Emulsion Intravenous 1,400 ml @ 58.333 mls/ hr TPN CONT IV Last administered on 07/23/19at 22:10; Start 07/23/19 at 22:00; Stop 07/24/19 at 21:59; Status DC Magnesium Sulfate 50 ml @ 25 mls/hr PRN DAILY PRN IV for Mag < 1.7 on am labs; Start 07/24/19 at 09:15 Sodium Chloride 90 meq/Potassium Chloride 15 meq/ Potassium Phosphate 10 mmol/ Magnesium Sulfate 8 meq/Calcium Gluconate 15 meq/ Multivitamins 10 ml/Chromium/ Copper/Manganese/ Seleni/Zn 0.5 ml/ Insulin Human Regular 25 unit/ Total Parenteral Nutrition/Amino Acids/Dextrose/ Fat Emulsion Intravenous 1,400 ml @ 58.333 mls/ hr TPN CONT IV Last administered on 07/24/19at 21:20; Start 07/24/19 at 22:00; Stop 07/25/19 at 21:59; Status DC Sodium Chloride 1,000 ml @ 1,000 mls/hr Q1H PRN IV hypotension; Start 07/24/19 at 12:23; Stop 07/24/19 at 18:22; Status DC Albumin Human 200 ml @ 200 mls/hr 1X ONCE IV Last administered on 07/24/19at 13:34; Start 07/24/19 at 12:30; Stop 07/24/19 at 13:29; Status DC Diphenhydramine HCl (Benadryl) 25 mg 1X PRN PRN IV ITCHING; Start 07/24/19 at 12:30; Stop 07/25/19 at 12:29; Status DC Diphenhydramine HCl (Benadryl) 25 mg 1X PRN PRN IV ITCHING; Start 07/24/19 at 12:30; Stop 07/25/19 at 12:29; Status DC Info (PHARMACY MONITORING -- do not chart) 1 each PRN DAILY PRN MC SEE COMMENTS; Start 07/24/19 at 12:30; Status Cancel Bupivacaine HCl/ Epinephrine Bitart (Sensorcain-Epi 0.5%-1:[id number] Mpf) 30 ml STK-MED ONCE .ROUTE Last administered on 07/25/19at 11:44; Start 07/25/19 at 11:00; Stop 07/25/19 at 11:01; Status DC Cellulose (Surgicel Fibrillar 1x2) 1 each STK-MED ONCE .ROUTE ; Start 07/25/19 at 11:00; Stop 07/25/19 at 11:01; Status DC Sodium Chloride 90 meq/Potassium Chloride 15 meq/ Potassium Phosphate 10 mmol/ Magnesium Sulfate 12 meq/Calcium Gluconate 15 meq/ Multivitamins 10 ml/Chromium/ Copper/Manganese/ Seleni/Zn 0.5 ml/ Insulin Human Regular 25 unit/ Total Parenteral Nutrition/Amino Acids/Dextrose/ Fat Emulsion Intravenous 1,400 ml @ 58.333 mls/ hr TPN CONT IV Last administered on 07/25/19at 22:24; Start 07/25/19 at 22:00; Stop 07/26/19 at 21:59; Status DC Propofol 20 ml @ As Directed STK-MED ONCE IV ; Start 07/25/19 at 11:07; Stop 07/25/19 at 11:07; Status DC Cellulose (Surgicel Hemostat 4x8) 1 each STK-MED ONCE .ROUTE Last administered on 07/25/19at 11:44; Start 07/25/19 at 11:55; Stop 07/25/19 at 11:56; Status DC Sevoflurane (Ultane) 60 ml STK-MED ONCE IH ; Start 07/25/19 at 12:46; Stop 07/25/19 at 12:46; Status DC Sodium Chloride 1,000 ml @ 1,000 mls/hr Q1H PRN IV hypotension; Start 07/25/19 at 13:51; Stop 07/25/19 at 19:50; Status DC Albumin Human 200 ml @ 200 mls/hr 1X PRN PRN IV Hypotension Last administered on 07/25/19at 14:51; Start 07/25/19 at 14:00; Stop 07/25/19 at 19:59; Status DC Diphenhydramine HCl (Benadryl) 25 mg 1X PRN PRN IV ITCHING; Start 07/25/19 at 14:00; Stop 07/26/19 at 13:59; Status DC Diphenhydramine HCl (Benadryl) 25 mg 1X PRN PRN IV ITCHING; Start 07/25/19 at 14:00; Stop 07/26/19 at 13:59; Status DC Sodium Chloride 1,000 ml @ 400 mls/hr Q2H30M PRN IV PATENCY; Start 07/25/19 at 13:51; Stop 07/26/19 at 01:50; Status DC Info (PHARMACY MONITORING -- do not chart) 1 each PRN DAILY PRN MC SEE COMMENTS; Start 07/25/19 at 14:00; Stop 07/28/19 at 08:16; Status DC Heparin Sodium (Porcine) (Hep Lock Adult) 500 unit STK-MED ONCE IVP ; Start 07/26/19 at 09:29; Stop 07/26/19 at 09:30; Status DC Sodium Chloride 1,000 ml @ 1,000 mls/hr Q1H PRN IV hypotension; Start 07/26/19 at 10:43; Stop 07/26/19 at 16:42; Status DC Sodium Chloride 1,000 ml @ 400 mls/hr Q2H30M PRN IV PATENCY; Start 07/26/19 at 10:43; Stop 07/26/19 at 22:42; Status DC Info (PHARMACY MONITORING -- do not chart) 1 each PRN DAILY PRN MC SEE COMMENTS; Start 07/26/19 at 10:45; Status UNV Info (PHARMACY MONITORING -- do not chart) 1 each PRN DAILY PRN MC SEE COMMENTS; Start 07/26/19 at 10:45; Status UNV Sodium Chloride 90 meq/Potassium Chloride 15 meq/ Magnesium Sulfate 12 meq/Calci um Gluconate 15 meq/ Multivitamins 10 ml/Chromium/ Copper/Manganese/ Seleni/Zn 0.5 ml/ Insulin Human Regular 25 unit/ Total Parenteral Nutrition/Amino Acids/Dextrose/ Fat Emulsion Intravenous 1,400 ml @ 58.333 mls/ hr TPN CONT IV Last administered on 07/26/19at 22:13; Start 07/26/19 at 22:00; Stop 07/27/19 at 21:59; Status DC Sodium Chloride 1,000 ml @ 1,000 mls/hr Q1H PRN IV hypotension; Start 07/27/19 at 07:50; Stop 07/27/19 at 13:49; Status DC Albumin Human 200 ml @ 200 mls/hr 1X ONCE IV ; Start 07/27/19 at 08:00; Stop 07/27/19 at 08:53; Status DC Diphenhydramine HCl (Benadryl) 25 mg 1X PRN PRN IV ITCHING; Start 07/27/19 at 08:00; Stop 07/28/19 at 07:59; Status DC Diphenhydramine HCl (Benadryl) 25 mg 1X PRN PRN IV ITCHING; Start 07/27/19 at 08:00; Stop 07/28/19 at 07:59; Status DC Info (PHARMACY MONITORING -- do not chart) 1 each PRN DAILY PRN MC SEE COMMENTS; Start 07/27/19 at 08:00; Stop 07/28/19 at 08:16; Status DC Albumin Human 50 ml @ 50 mls/hr 1X ONCE IV ; Start 07/27/19 at 08:53; Stop 07/27/19 at 08:56; Status DC Albumin Human 200 ml @ 50 mls/hr PRN 1X PRN IV HYPOTENSION Last administered on 07/27/19at 09:09; Start 07/27/19 at 09:00 Meropenem 500 mg/ Sodium Chloride 50 ml @ 100 mls/hr Q12H IV Last administered on 07/29/19at 21:49; Start 07/27/19 at 10:00 Sodium Chloride 90 meq/Magnesium Sulfate 12 meq/ Calcium Gluconate 15 meq/ Multivitamins 10 ml/Chromium/ Copper/Manganese/ Seleni/Zn 0.5 ml/ Insulin Human Regular 25 unit/ Total Parenteral Nutrition/Amino Acids/Dextrose/ Fat Emulsion Intravenous 1,400 ml @ 58.333 mls/ hr TPN CONT IV Last administered on 07/27/19at 21:41; Start 07/27/19 at 22:00; Stop 07/28/19 at 21:59; Status DC Sodium Chloride 1,000 ml @ 1,000 mls/hr Q1H PRN IV hypotension; Start 07/28/19 at 07:58; Stop 07/28/19 at 13:57; Status DC Albumin Human 200 ml @ 200 mls/hr 1X PRN PRN IV Hypotension Last administered on 07/28/19at 09:30; Start 07/28/19 at 08:00; Stop 07/28/19 at 13:59; Status DC Sodium Chloride 1,000 ml @ 400 mls/hr Q2H30M PRN IV PATENCY; Start 07/28/19 at 07:58; Stop 07/28/19 at 19:57; Status DC Info (PHARMACY MONITORING -- do not chart) 1 each PRN DAILY PRN MC SEE COMMENTS; Start 07/28/19 at 08:00 Info (PHARMACY MONITORING -- do not chart) 1 each PRN DAILY PRN MC SEE COMMENTS; Start 07/28/19 at 08:15; Status UNV Sodium Chloride 90 meq/Potassium Phosphate 5 mmol/ Magnesium Sulfate 12 meq/Calcium Gluconate 15 meq/ Multivitamins 10 ml/Chromium/ Copper/Manganese/ Seleni/Zn 0.5 ml/ Insulin Human Regular 30 unit/ Total Parenteral Nutrition/Amino Acids/Dextrose/ Fat Emulsion Intravenous 1,400 ml @ 58.333 mls/ hr TPN CONT IV Last administered on 07/28/19at 22:08; Start 07/28/19 at 22:00; Stop 07/29/19 at 21:59; Status DC Linezolid/Dextrose 300 ml @ 300 mls/hr Q12HR IV Last administered on 07/30/19at 09:29; Start 07/29/19 at 11:00 Sodium Chloride 90 meq/Potassium Phosphate 15 mmol/ Magnesium Sulfate 12 meq/Calcium Gluconate 15 meq/ Multivitamins 10 ml/Chromium/ Copper/Manganese/ Seleni/Zn 0.5 ml/ Insulin Human Regular 30 unit/ Total Parenteral Nutrition/Amino Acids/Dextrose/ Fat Emulsion Intravenous 1,400 ml @ 58.333 mls/ hr TPN CONT IV Last administered on 07/29/19at 21:49; Start 07/29/19 at 22:00; Stop 07/30/19 at 21:59 Active Scripts Active Reported Bisoprolol Fumarate 5 Mg Tablet 10 Mg PO DAILY Vitals/I & O Vital Sign - Last 24 Hours 07/29/19 07/29/19 07/29/19 07/29/19 12:00 12:00 12:46 13:00 Temp 98.2 98.2 Pulse 100 99 97 Resp 18 22 28 B/P (MAP) 106/59 (75) 106/52 (70) 118/52 (74) Pulse Ox 99 100 98 O2 Delivery Ventilator Mechanical Ventilator Ventilator Ventilator 07/29/19 07/29/19 07/29/19 07/29/19 13:30 14:00 14:19 14:39 Temp 98.6 98.6 Pulse 98 100 112 Resp 24 20 23 B/P (MAP) 129/54 (79) 122/55 (77) 113/57 (75) Pulse Ox 99 99 98 100 O2 Delivery Ventilator Ventilator Ventilator Ventilator 07/29/19 07/29/19 07/29/19 07/29/19 15:59 16:00 16:27 17:00 Pulse 96 108 Resp 19 23 B/P (MAP) 98/47 (64) 116/81 (93) Pulse Ox 99 99 100 O2 Delivery Ventilator Mechanical Ventilator Ventilator Ventilator 07/29/19 07/29/19 07/29/19 07/29/19 18:00 19:00 19:35 20:00 Pulse 127 118 Resp 23 18 B/P (MAP) 107/55 (72) 94/51 (65) Pulse Ox 97 98 95 O2 Delivery Ventilator Ventilator Ventilator Mechanical Ventilator 07/29/19 07/29/19 07/29/19 07/29/19 20:00 21:00 22:00 23:00 Temp 98.8 98.8 Pulse 115 99 93 91 Resp 18 18 18 18 B/P (MAP) 109/59 (76) 89/44 (59) 82/43 (56) 96/47 (63) Pulse Ox 97 97 98 100 O2 Delivery Ventilator Ventilator Ventilator Ventilator 4/1007/30/19 07/30/19 07/30/19 23:31 00:00 00:00 01:00 Temp 97.8 97.8 Pulse 103 96 Resp 18 18 B/P (MAP) 100/49 (66) 106/54 (71) Pulse Ox 97 100 100 O2 Delivery Ventilator Mechanical Ventilator Ventilator Ventilator 07/30/19 07/30/19 07/30/19 07/30/19 02:00 03:00 03:50 04:00 Temp 97.6 97.6 Pulse 88 95 89 Resp 18 18 18 B/P (MAP) 99/52 (68) 115/57 (76) 117/46 (69) Pulse Ox 99 97 100 97 O2 Delivery Ventilator Ventilator Ventilator Ventilator 07/30/19 07/30/19 07/30/19 07/30/19 04:00 05:00 06:00 08:02 Pulse 89 95 Resp 18 18 B/P (MAP) 97/50 (66) 127/74 (91) Pulse Ox 98 98 98 O2 Delivery Mechanical Ventilator Ventilator Ventilator Ventilator 07/30/19 07/30/19 08:23 08:53 Resp 20 Pulse Ox 98 98 O2 Delivery Ventilator O2 Flow Rate 6.0 Intake and Output 07/29/19 07/29/19 07/30/19 15:00 23:00 07:00 Intake Total 400 ml 273.58 ml 1370.8 ml Output Total 140 ml 115 ml 220 ml Balance 260 ml 158.58 ml 1150.8 ml Hemodynamically unstable?: No Is patient in severe pain?: No Is NPO status required?: Yes ROSS DIAS MD Jul 30, 2019 11:09
[2019-07-30] MEDS: MEROPENEM 500 MG in IV NORMAL SALINE 50ML 50 ML IV SCH ×2 (11:41→21:16)
[2019-07-30] MEDS: TPN PER PHARMACY MC PRN (12:00)
--- NOTE | 2019-07-30 12:00 | NUR ---
Pharmacy TPN Dosing Note S: SCOTT AVILA is a 48 year old F Currently receiving Central Continuous TPN started 07/06/19 B:Pertinent PMH: Necrotizing pancreatitis Height: 5 feet, 8 inches Weight: 102.0 kg Current diet: NPO LABS: Sodium: 135 Potassium: 3.6 Chloride: 98 Calcium: 8.9 Corrected Calcium: 10.02 Magnesium: 2.1 CO2: 25 SCr: 2.5 Glucose: 268 Albumin: 2.6 AST: 47 ALT: 20 TPN FORMULA: TPN TYPE: Central Continuous AMINO ACIDS: 125 gm DEXTROSE: 225 gm LIPIDS: 20 gm SODIUM CHLORIDE: 90 mEq SODIUM ACETATE: -- mEq SODIUM PHOSPHATE: - mmol POTASSIUM CHLORIDE: - mEq POTASSIUM ACETATE: -- mEq POTASSIUM PHOSPHATE: 15 mmol MAGNESIUM: 12 mEq CALCIUM: 15 mEq INSULIN: 40 units MULTIPLE VITAMIN: 10 ml TRACE ELEMENTS: 0.5 ml(s) TPN PLAN: Triglycerides >400 - lipid content reduced to 20g/bag, dextrose increased to 225gm per education administrative assistant, check trigs again thursday Increase insulin to 40units R: Continue TPN as written above. Will monitor electrolytes, glucose, and tolerance to TPN. PADMINI YOUNG Katya, 07/30/19 1200
--- NOTE | 2019-07-30 12:22 | PDOC ---
Renal-Progress Notes Subjective Notes Notes REMAINS INTUBATED History of Present Illness Hx of present illness STABLE Vitals Vitals Vital Signs Date Time Temp Pulse Resp B/P (MAP) Pulse Ox O2 Delivery O2 Flow Rate FiO2 07/30/19 11:28 98 Ventilator 07/30/19 08:53 20 07/30/19 08:23 6.0 07/30/19 06:00 95 127/74 (91) 07/30/19 04:00 97.6 97.6 Weight Weight [ ] I.O. Intake and Output Intake and Output 07/30/19 07:00 Intake Total 2044.38 ml Output Total 475 ml Balance 1569.38 ml Intake Oral 0 ml IV Total 2044.38 ml Output Urine Total 475 ml Labs Labs Laboratory Tests Test 07/29/19 12:29 07/29/19 18:12 07/30/19 00:26 07/30/19 06:10 Glucose (Fingerstick) 247 mg/dL (70-99) 270 mg/dL (70-99) 272 mg/dL (70-99) Sodium Level 135 mmol/L (136-145) Potassium Level 3.6 mmol/L (3.5-5.1) Chloride Level 98 mmol/L (98-107) Carbon Dioxide Level 25 mmol/L (21-32) Anion Gap 12 (6-14) Blood Urea Nitrogen 72 mg/dL (7-20) Creatinine 2.5 mg/dL (0.6-1.0) Estimated GFR (Cockcroft-Gault) 20.5 Glucose Level 268 mg/dL (70-99) Calcium Level 8.9 mg/dL (8.5-10.1) Phosphorus Level 3.4 mg/dL (2.6-4.7) Albumin 2.6 g/dL (3.4-5.0) Test 07/30/19 06:11 07/30/19 08:00 Glucose (Fingerstick) 261 mg/dL (70-99) O2 Saturation 94 % (92-99) Arterial Blood pH 7.38 (7.35-7.45) Arterial Blood pCO2 at Patient Temp 36 mmHg (35-46) Arterial Blood pO2 at Patient Temp 75 mmHg (75-108) Arterial Blood HCO3 21 mmol/L (21-28) Arterial Blood Base Excess -4 mmol/L (-3-3) FiO2 35 Micro Micro Microbiology 07/24/19 Blood Culture - Final, Complete NO GROWTH AFTER 5 DAYS 07/23/19 Urine Culture - Final, Complete 07/23/19 Urine Culture Result 1 (ALEXANDRA) - Final, Complete Review of Systems Constitutional: yes: other (ON THE VENT) Physical Exam General Appearance: other (ON THE VENT) Skin: warm Respiratory: decreased breath sounds Heart: S1S2 Abdomen: soft, bowel sounds present Genitourinary: bladder flat Extremities: pulses present, edema Neurology: other (SEDATED) Assessment Assessment IMP [id number]-OFF CRRT ANEMIA LEUCOCYTOSIS-IMPROVING ANASARCA DUE TO 3RD SPACING HYPERKALEMIA-RESOLVED ACIDOSIS AND ACIDEMIA-CONTROLLED ACUTE REPS FAILURE ACUTE PANCREATITIS HYPOALBUMINEMIA HYPOCALCEMIA-FROM SAPONIFICATION-BETTER POOR HD CATHETER FUNCTION PLAN TPN TO CONTINUE NEEDED PRBC NEEDED TREAT LOW CA ONLY FOR ARRHYTHMIA OR SYMPTOMS CONT HIRAM ATTEMPT TO FORCE DIURESE IHD TODAY ATTEMPT UF OF 3.5-4.0 LITERS VENT SUPPORT PRESSORS NEEDED ANTIBIOTICS WILL FOLLOW VERY POOR PROGNOSIS DONI GARCIA MD Jul 30, 2019 12:22
[2019-07-30] MEDS ORDERED: IV NORMAL SALINE 1000ML BAG 1,000 ML IV PRN ×2 (13:26)
[2019-07-30] MEDS ORDERED: 0.9 % SODIUM CHLORIDE 10 ML DISP.SYRIN. IV PRN ×2 (13:30)
[2019-07-30] MEDS ORDERED: DIALYSIS PATIENT. MC PRN ×2 (13:30)
[2019-07-30] MEDS ORDERED: ALBUMIN HUMAN 25% 200 ML IV PRN (13:30)
[2019-07-30] MEDS ORDERED: TOTAL PARENTERAL NUTRITION IV SCH ×10 (22:00)
[2019-07-30] MEDS ORDERED: [UNRECOGNIZED DRUG - OTHER] IV SCH ×10 (22:00)
[2019-07-30] MEDS ORDERED: DEXTROSE 70% IV SCH ×10 (22:00)
[2019-07-30] MEDS ORDERED: AMINO ACID IV SCH ×10 (22:00)
[2019-07-31] VITALS (24 sets, daily range): BP systolic 90–142; BP diastolic 50–81
[2019-07-31] MEDS: INSULIN LISPRO 300 UNITS/3 ML VIAL. SQ SCH ×4 (00:13→17:59)
[2019-07-31] MEDS: DEXMEDETOMIDINE 400 MCG in IV NORMAL SALINE 100ML 96 ML IV PRN ×3 (05:56→21:48)
[2019-07-31 06:38] LABS: ALBUMIN 2.9 g/dL (3.4-5.0); CALCIUM 8.9 mg/dL (8.5-10.1); CREATININE 1.9 mg/dL (0.6-1.0); GFR 28.1; PHOSPHORUS 2.9 mg/dL (2.6-4.7); POTASSIUM 3.6 mmol/L (3.5-5.1)
[2019-07-31 07:20] LABS: BASO % 1 % (0-3); EOS # 0.3 x10^3/uL (0.0-0.7); EOS % 4 % (0-3); LYMPH # 0.6 x10^3/uL (1.0-4.8); LYMPH % 10 % (24-48); MEAN CORPUSCULAR HEMOGLOBIN 33 pg (25-35); MEAN CORPUSCULAR HGB CONC 33 g/dL (31-37); MEAN CORPUSCULAR VOLUME 100 fL (79-100); MONO # 0.7 x10^3/uL (0.0-1.1); MONO % 11 % (0-9); NEUT # 4.9 x10^3/uL (1.8-7.7); NEUT % 74 % (31-73); PLATELET COUNT 287 x10^3/uL (140-400); RED BLOOD COUNT 2.09 x10^6/uL (3.50-5.40); RED CELL DISTRIBUTION WIDTH 22.2 % (11.5-14.5); WHITE BLOOD COUNT 6.6 x10^3/uL (4.0-11.0)
[2019-07-31 07:31] LABS: HEMOGLOBIN 6.8 g/dL (12.0-15.5)
[2019-07-31 08:11] LABS: BASE EXCESS ABG 1 mmol/L (-3-3); HCO3 ABG 24 mmol/L (21-28); PCO2 ABG 34 mmHg (35-46); PO2 ABG 95 mmHg (75-108); SAT O2 ABG 97 % (92-99)
[2019-07-31 08:17] LABS: FIO2 ABG 35
--- NOTE | 2019-07-31 08:28 | PDOC ---
Infectious Disease Note Subjective Subjective Sedated Trach, vent FiO2 35 % PEEP 5 Now off levaphed Fever Tmax 101.3 + diarrhea TPN ROS ROS unobtainable Vital Sign Vital Signs Vital Signs Date Time Temp Pulse Resp B/P (MAP) Pulse Ox O2 Delivery O2 Flow Rate FiO2 07/31/19 07:50 100 Ventilator 07/31/19 06:48 18 07/31/19 06:00 113 98/51 (67) 07/31/19 04:00 100.0 100.0 07/30/19 08:23 6.0 Physical Exam PHYSICAL EXAM GENERAL: Sedated, generalized anasarca HEENT: Pupils equal, + NGT, oral cavity dry NECK: Trach/vent LUNGS: Diminished aeration HEART: S1, S2, regular ABDOMEN: Distended, hypoactive BS, Rectal tube in place : Lind (07/04) EXTREMITIES: Generalized edema, no cyanosis, SCDs bilaterally DERMATOLOGIC: Warm and dry. No generalized rash. CENTRAL NERVOUS SYSTEM: Opens eyes to tactile stimuli HDC, LIJ and RUE-PICC without signs of complications Labs Lab Laboratory Tests Test 07/30/19 15:33 07/31/19 00:08 07/31/19 06:00 Glucose (Fingerstick) 214 mg/dL (70-99) 208 mg/dL (70-99) 172 mg/dL (70-99) White Blood Count 6.6 x10^3/uL (4.0-11.0) Red Blood Count 2.09 x10^6/uL (3.50-5.40) Hemoglobin 6.8 g/dL (12.0-15.5) Hematocrit 21.0 % (36.0-47.0) Mean Corpuscular Volume 100 fL (79-100) Mean Corpuscular Hemoglobin 33 pg (25-35) Mean Corpuscular Hemoglobin Concent 33 g/dL (31-37) Red Cell Distribution Width 22.2 % (11.5-14.5) Platelet Count 287 x10^3/uL (140-400) Neutrophils (%) (Auto) 74 % (31-73) Lymphocytes (%) (Auto) 10 % (24-48) Monocytes (%) (Auto) 11 % (0-9) Eosinophils (%) (Auto) 4 % (0-3) Basophils (%) (Auto) 1 % (0-3) Neutrophils # (Auto) 4.9 x10^3/uL (1.8-7.7) Lymphocytes # (Auto) 0.6 x10^3/uL (1.0-4.8) Monocytes # (Auto) 0.7 x10^3/uL (0.0-1.1) Eosinophils # (Auto) 0.3 x10^3/uL (0.0-0.7) Basophils # (Auto) 0.0 x10^3/uL (0.0-0.2) Sodium Level 135 mmol/L (136-145) Potassium Level 3.6 mmol/L (3.5-5.1) Chloride Level 99 mmol/L (98-107) Carbon Dioxide Level 29 mmol/L (21-32) Anion Gap 7 (6-14) Blood Urea Nitrogen 56 mg/dL (7-20) Creatinine 1.9 mg/dL (0.6-1.0) Estimated GFR (Cockcroft-Gault) 28.1 Glucose Level 174 mg/dL (70-99) Calcium Level 8.9 mg/dL (8.5-10.1) Phosphorus Level 2.9 mg/dL (2.6-4.7) Albumin 2.9 g/dL (3.4-5.0) Micro CT A/P, 07/27 IMPRESSION: 1. Increased ascites. 2. 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 Cholelithiasis with thickening of the gallbladder wall. 4. Persistent pleural effusions and atelectasis in the lung bases. Objective Assessment Leukocytosis -improved Fever. Severe acute gallstone pancreatitis with necrosis -CT 07/27 necrotizing pancreatitis with fluid and phlegmon at the pancreas -not a surgical candidate at this time Hypotension on levaphed JUANA requiring HD - s/p RIJ temporary dialysis catheter replacement, 07/20 Vent dependent respiratory failure -s/p Trach placement -lung opacities, COVID-19 neg Anasarca - worse Anemia - S/p PRBC 07/13 Hypocalcemia Prediabetes HTN Diarrhea, C. diff neg 07/10 Plan Plan of Care cont merrem (07/26) and Zyvox (07/28) and micafungin -previously on cefepime, flagyl & dapto Gen surgery following f/u BC from 07/27 neg to date UA C&S pending Maintain aspiration precautions Anemia deferred to primary Critically ill D/W RN Patient seen and examined. Chart reviewed in detail. Case discussed with INTERNET MARKETER. Agree with above plan. FRANCA HOBSON DIE MAKER ELECTRONIC Jul 31, 2019 08:28 GERMAN TORRES MD Aug 01, 2019 18:00
--- NOTE | 2019-07-31 09:23 | PDOC ---
SURGICAL PROGRESS NOTE Subjective Patient with trach on the ventilator minimally responsive Vital Signs Vital Signs Date Time Temp Pulse Resp B/P (MAP) Pulse Ox O2 Delivery O2 Flow Rate FiO2 07/31/19 08:32 99 Ventilator 07/31/19 06:48 18 07/31/19 06:00 113 98/51 (67) 07/31/19 04:00 100.0 100.0 07/30/19 08:23 6.0 I&O Intake and Output 07/31/19 07:00 Intake Total 2621.3 ml Output Total 360 ml Balance 2261.3 ml Intake Oral 0 ml IV Total 2621.3 ml Output Urine Total 360 ml PATIENT HAS A ROSARIO: Yes Abdomen: Normal bowel sounds, Soft, No tenderness Labs Laboratory Tests Test 07/29/19 12:29 07/29/19 18:12 07/30/19 00:26 07/30/19 06:10 Glucose (Fingerstick) 247 mg/dL (70-99) 270 mg/dL (70-99) 272 mg/dL (70-99) Sodium Level 135 mmol/L (136-145) Potassium Level 3.6 mmol/L (3.5-5.1) Chloride Level 98 mmol/L (98-107) Carbon Dioxide Level 25 mmol/L (21-32) Anion Gap 12 (6-14) Blood Urea Nitrogen 72 mg/dL (7-20) Creatinine 2.5 mg/dL (0.6-1.0) Estimated GFR (Cockcroft-Gault) 20.5 Glucose Level 268 mg/dL (70-99) Calcium Level 8.9 mg/dL (8.5-10.1) Phosphorus Level 3.4 mg/dL (2.6-4.7) Albumin 2.6 g/dL (3.4-5.0) Test 07/30/19 06:11 07/30/19 08:00 07/30/19 15:33 07/31/19 00:08 Glucose (Fingerstick) 261 mg/dL (70-99) 214 mg/dL (70-99) 208 mg/dL (70-99) O2 Saturation 94 % (92-99) Arterial Blood pH 7.38 (7.35-7.45) Arterial Blood pCO2 at Patient Temp 36 mmHg (35-46) Arterial Blood pO2 at Patient Temp 75 mmHg (75-108) Arterial Blood HCO3 21 mmol/L (21-28) Arterial Blood Base Excess -4 mmol/L (-3-3) FiO2 35 Test 07/31/19 06:00 07/31/19 08:00 White Blood Count 6.6 x10^3/uL (4.0-11.0) Red Blood Count 2.09 x10^6/uL (3.50-5.40) Hemoglobin 6.8 g/dL (12.0-15.5) Hematocrit 21.0 % (36.0-47.0) Mean Corpuscular Volume 100 fL (79-100) Mean Corpuscular Hemoglobin 33 pg (25-35) Mean Corpuscular Hemoglobin Concent 33 g/dL (31-37) Red Cell Distribution Width 22.2 % (11.5-14.5) Platelet Count 287 x10^3/uL (140-400) Neutrophils (%) (Auto) 74 % (31-73) Lymphocytes (%) (Auto) 10 % (24-48) Monocytes (%) (Auto) 11 % (0-9) Eosinophils (%) (Auto) 4 % (0-3) Basophils (%) (Auto) 1 % (0-3) Neutrophils # (Auto) 4.9 x10^3/uL (1.8-7.7) Lymphocytes # (Auto) 0.6 x10^3/uL (1.0-4.8) Monocytes # (Auto) 0.7 x10^3/uL (0.0-1.1) Eosinophils # (Auto) 0.3 x10^3/uL (0.0-0.7) Basophils # (Auto) 0.0 x10^3/uL (0.0-0.2) Sodium Level 135 mmol/L (136-145) Potassium Level 3.6 mmol/L (3.5-5.1) Chloride Level 99 mmol/L (98-107) Carbon Dioxide Level 29 mmol/L (21-32) Anion Gap 7 (6-14) Blood Urea Nitrogen 56 mg/dL (7-20) Creatinine 1.9 mg/dL (0.6-1.0) Estimated GFR (Cockcroft-Gault) 28.1 Glucose Level 174 mg/dL (70-99) Glucose (Fingerstick) 172 mg/dL (70-99) Calcium Level 8.9 mg/dL (8.5-10.1) Phosphorus Level 2.9 mg/dL (2.6-4.7) Albumin 2.9 g/dL (3.4-5.0) O2 Saturation 97 % (92-99) Arterial Blood pH 7.47 (7.35-7.45) Arterial Blood pCO2 at Patient Temp 34 mmHg (35-46) Arterial Blood pO2 at Patient Temp 95 mmHg (75-108) Arterial Blood HCO3 24 mmol/L (21-28) Arterial Blood Base Excess 1 mmol/L (-3-3) FiO2 35 Laboratory Tests Test 07/30/19 15:33 07/31/19 00:08 07/31/19 06:00 07/31/19 08:00 Glucose (Fingerstick) 214 mg/dL (70-99) 208 mg/dL (70-99) 172 mg/dL (70-99) White Blood Count 6.6 x10^3/uL (4.0-11.0) Red Blood Count 2.09 x10^6/uL (3.50-5.40) Hemoglobin 6.8 g/dL (12.0-15.5) Hematocrit 21.0 % (36.0-47.0) Mean Corpuscular Volume 100 fL (79-100) Mean Corpuscular Hemoglobin 33 pg (25-35) Mean Corpuscular Hemoglobin Concent 33 g/dL (31-37) Red Cell Distribution Width 22.2 % (11.5-14.5) Platelet Count 287 x10^3/uL (140-400) Neutrophils (%) (Auto) 74 % (31-73) Lymphocytes (%) (Auto) 10 % (24-48) Monocytes (%) (Auto) 11 % (0-9) Eosinophils (%) (Auto) 4 % (0-3) Basophils (%) (Auto) 1 % (0-3) Neutrophils # (Auto) 4.9 x10^3/uL (1.8-7.7) Lymphocytes # (Auto) 0.6 x10^3/uL (1.0-4.8) Monocytes # (Auto) 0.7 x10^3/uL (0.0-1.1) Eosinophils # (Auto) 0.3 x10^3/uL (0.0-0.7) Basophils # (Auto) 0.0 x10^3/uL (0.0-0.2) Sodium Level 135 mmol/L (136-145) Potassium Level 3.6 mmol/L (3.5-5.1) Chloride Level 99 mmol/L (98-107) Carbon Dioxide Level 29 mmol/L (21-32) Anion Gap 7 (6-14) Blood Urea Nitrogen 56 mg/dL (7-20) Creatinine 1.9 mg/dL (0.6-1.0) Estimated GFR (Cockcroft-Gault) 28.1 Glucose Level 174 mg/dL (70-99) Calcium Level 8.9 mg/dL (8.5-10.1) Phosphorus Level 2.9 mg/dL (2.6-4.7) Albumin 2.9 g/dL (3.4-5.0) O2 Saturation 97 % (92-99) Arterial Blood pH 7.47 (7.35-7.45) Arterial Blood pCO2 at Patient Temp 34 mmHg (35-46) Arterial Blood pO2 at Patient Temp 95 mmHg (75-108) Arterial Blood HCO3 24 mmol/L (21-28) Arterial Blood Base Excess 1 mmol/L (-3-3) FiO2 35 Problem List Problems Medical Problems: (1) Acute pancreatitis Status: Acute (2) Cholelithiasis Status: Acute Assessment/Plan Pancreatitis Continue supportive care No new surgical recommendations CARIN MALDONADO MD Jul 31, 2019 09:23
[2019-07-31] MEDS: PANTOPRAZOLE IV PUSH 40 MG VIAL. IVP SCH (09:55)
[2019-07-31] MEDS: ONDANSETRON PF 4 MG/2 ML VIAL. IV PRN (09:56)
[2019-07-31] MEDS: HEPARIN for SUB-Q USE 5,000 UNIT/ML VIAL. SQ SCH ×2 (09:58→21:54)
--- NOTE | 2019-07-31 10:21 | PDOC ---
PULMONARY PROGRESS NOTES Subjective Patient intubated on 07/10 , sedated remained on assist control overnight, placed on Pressure Support 15/5 35% this am, tolerating well nursing reports anemia and fever Vitals Vital Signs Date Time Temp Pulse Resp B/P (MAP) Pulse Ox O2 Delivery O2 Flow Rate FiO2 07/31/19 08:32 99 Ventilator 07/31/19 06:48 18 07/31/19 06:00 113 98/51 (67) 07/31/19 04:00 100.0 100.0 07/30/19 08:23 6.0 Comments Trach/opens eyes Lungs: Other (dimished in BLL) Cardiovascular: S1, S2 Abdomen: Non-tender, Other (distended) Extremities: Other (+3 generalized edema ) Skin: Warm, Dry Labs Laboratory Tests Test 07/29/19 12:29 07/29/19 18:12 07/30/19 00:26 07/30/19 06:10 Glucose (Fingerstick) 247 mg/dL (70-99) 270 mg/dL (70-99) 272 mg/dL (70-99) Sodium Level 135 mmol/L (136-145) Potassium Level 3.6 mmol/L (3.5-5.1) Chloride Level 98 mmol/L (98-107) Carbon Dioxide Level 25 mmol/L (21-32) Anion Gap 12 (6-14) Blood Urea Nitrogen 72 mg/dL (7-20) Creatinine 2.5 mg/dL (0.6-1.0) Estimated GFR (Cockcroft-Gault) 20.5 Glucose Level 268 mg/dL (70-99) Calcium Level 8.9 mg/dL (8.5-10.1) Phosphorus Level 3.4 mg/dL (2.6-4.7) Albumin 2.6 g/dL (3.4-5.0) Test 07/30/19 06:11 07/30/19 08:00 07/30/19 15:33 07/31/19 00:08 Glucose (Fingerstick) 261 mg/dL (70-99) 214 mg/dL (70-99) 208 mg/dL (70-99) O2 Saturation 94 % (92-99) Arterial Blood pH 7.38 (7.35-7.45) Arterial Blood pCO2 at Patient Temp 36 mmHg (35-46) Arterial Blood pO2 at Patient Temp 75 mmHg (75-108) Arterial Blood HCO3 21 mmol/L (21-28) Arterial Blood Base Excess -4 mmol/L (-3-3) FiO2 35 Test 07/31/19 06:00 07/31/19 08:00 White Blood Count 6.6 x10^3/uL (4.0-11.0) Red Blood Count 2.09 x10^6/uL (3.50-5.40) Hemoglobin 6.8 g/dL (12.0-15.5) Hematocrit 21.0 % (36.0-47.0) Mean Corpuscular Volume 100 fL (79-100) Mean Corpuscular Hemoglobin 33 pg (25-35) Mean Corpuscular Hemoglobin Concent 33 g/dL (31-37) Red Cell Distribution Width 22.2 % (11.5-14.5) Platelet Count 287 x10^3/uL (140-400) Neutrophils (%) (Auto) 74 % (31-73) Lymphocytes (%) (Auto) 10 % (24-48) Monocytes (%) (Auto) 11 % (0-9) Eosinophils (%) (Auto) 4 % (0-3) Basophils (%) (Auto) 1 % (0-3) Neutrophils # (Auto) 4.9 x10^3/uL (1.8-7.7) Lymphocytes # (Auto) 0.6 x10^3/uL (1.0-4.8) Monocytes # (Auto) 0.7 x10^3/uL (0.0-1.1) Eosinophils # (Auto) 0.3 x10^3/uL (0.0-0.7) Basophils # (Auto) 0.0 x10^3/uL (0.0-0.2) Sodium Level 135 mmol/L (136-145) Potassium Level 3.6 mmol/L (3.5-5.1) Chloride Level 99 mmol/L (98-107) Carbon Dioxide Level 29 mmol/L (21-32) Anion Gap 7 (6-14) Blood Urea Nitrogen 56 mg/dL (7-20) Creatinine 1.9 mg/dL (0.6-1.0) Estimated GFR (Cockcroft-Gault) 28.1 Glucose Level 174 mg/dL (70-99) Glucose (Fingerstick) 172 mg/dL (70-99) Calcium Level 8.9 mg/dL (8.5-10.1) Phosphorus Level 2.9 mg/dL (2.6-4.7) Albumin 2.9 g/dL (3.4-5.0) O2 Saturation 97 % (92-99) Arterial Blood pH 7.47 (7.35-7.45) Arterial Blood pCO2 at Patient Temp 34 mmHg (35-46) Arterial Blood pO2 at Patient Temp 95 mmHg (75-108) Arterial Blood HCO3 24 mmol/L (21-28) Arterial Blood Base Excess 1 mmol/L (-3-3) FiO2 35 Laboratory Tests Test 07/30/19 15:33 07/31/19 00:08 07/31/19 06:00 07/31/19 08:00 Glucose (Fingerstick) 214 mg/dL (70-99) 208 mg/dL (70-99) 172 mg/dL (70-99) White Blood Count 6.6 x10^3/uL (4.0-11.0) Red Blood Count 2.09 x10^6/uL (3.50-5.40) Hemoglobin 6.8 g/dL (12.0-15.5) Hematocrit 21.0 % (36.0-47.0) Mean Corpuscular Volume 100 fL (79-100) Mean Corpuscular Hemoglobin 33 pg (25-35) Mean Corpuscular Hemoglobin Concent 33 g/dL (31-37) Red Cell Distribution Width 22.2 % (11.5-14.5) Platelet Count 287 x10^3/uL (140-400) Neutrophils (%) (Auto) 74 % (31-73) Lymphocytes (%) (Auto) 10 % (24-48) Monocytes (%) (Auto) 11 % (0-9) Eosinophils (%) (Auto) 4 % (0-3) Basophils (%) (Auto) 1 % (0-3) Neutrophils # (Auto) 4.9 x10^3/uL (1.8-7.7) Lymphocytes # (Auto) 0.6 x10^3/uL (1.0-4.8) Monocytes # (Auto) 0.7 x10^3/uL (0.0-1.1) Eosinophils # (Auto) 0.3 x10^3/uL (0.0-0.7) Basophils # (Auto) 0.0 x10^3/uL (0.0-0.2) Sodium Level 135 mmol/L (136-145) Potassium Level 3.6 mmol/L (3.5-5.1) Chloride Level 99 mmol/L (98-107) Carbon Dioxide Level 29 mmol/L (21-32) Anion Gap 7 (6-14) Blood Urea Nitrogen 56 mg/dL (7-20) Creatinine 1.9 mg/dL (0.6-1.0) Estimated GFR (Cockcroft-Gault) 28.1 Glucose Level 174 mg/dL (70-99) Calcium Level 8.9 mg/dL (8.5-10.1) Phosphorus Level 2.9 mg/dL (2.6-4.7) Albumin 2.9 g/dL (3.4-5.0) O2 Saturation 97 % (92-99) Arterial Blood pH 7.47 (7.35-7.45) Arterial Blood pCO2 at Patient Temp 34 mmHg (35-46) Arterial Blood pO2 at Patient Temp 95 mmHg (75-108) Arterial Blood HCO3 24 mmol/L (21-28) Arterial Blood Base Excess 1 mmol/L (-3-3) FiO2 35 Medications Active Scripts Medications Dose Route/Sig Max Daily Dose Days Date Category Bisoprolol Fumarate 5 Mg Tablet 10 Mg PO DAILY 07/04/19 Reported Comments Chest x-ray reviewed 07/24 IMPRESSION: 1. Increased moderate to large bilateral posteriorly layering pleural effusions with associated atelectasis. Impression . IMPRESSION: 1. Acute hypoxemic respiratory failure secondary to ARDS status post trach, 2. Gallstone pancreatitis. WITH NECROSIS 3. Severe metabolic acidosis.stable 4. Acute kidney injury-stable 5. Acute gallstone pancreatitis. 6. Hypoalbuminemia. 7. Hypocalcemia. 8. Leukocytosis 9. Chronic anemia 10. Covid 19 testing negative 11. Acute /chronic anemia suspected hemorrhagic fluid in pelvis 12, Fever per ID Plan . Cont. current vent setting, ABG reviewedplaced on PS 15/5-- tolerating well symptomatic treatment of Fever increased gastric secretions, will defer to surgery and ID Discussed with RN and RT. Pressure support as tolerated Transfuse prn, check H/H --today 6.8 Antibiotics per ID, Follow nephrology recs Nutritional support with TPN off pressors today Prognosis is guarded DVT/GI PPX d/w RN/RT CC time : 35 minutes reviewing labs, patient care and discussing will care team HARMEET BEE MD Jul 31, 2019 10:20
[2019-07-31] MEDS: MICAFUNGIN 100 MG in IV DEXTROSE 5% 100ML 100 ML IV SCH (10:26)
[2019-07-31] MEDS: MEROPENEM 500 MG in IV NORMAL SALINE 50ML 50 ML IV SCH ×2 (10:26→21:48)
[2019-07-31] MEDS: TPN PER PHARMACY MC PRN (11:14)
--- NOTE | 2019-07-31 11:16 | NUR ---
Pharmacy TPN Dosing Note S: SCOTT AVILA is a 48 year old F Currently receiving Central Continuous TPN started 07/06/19 B:Pertinent PMH: Necrotizing pancreatitis Height: 5 feet, 8 inches Weight: 102.0 kg Current diet: NPO LABS: Sodium: 135 Potassium: 3.6 Chloride: 99 Calcium: 8.9 Corrected Calcium: 9.78 Magnesium: 2.1 CO2: 29 SCr: 1.9 Glucose: 174 Albumin: 2.9 AST: 47 ALT: 20 TPN FORMULA: TPN TYPE: Central Continuous AMINO ACIDS: 125 gm DEXTROSE: 225 gm LIPIDS: 20 gm SODIUM CHLORIDE: 90 mEq SODIUM ACETATE: -- mEq SODIUM PHOSPHATE: - mmol POTASSIUM CHLORIDE: - mEq POTASSIUM ACETATE: -- mEq POTASSIUM PHOSPHATE: 19 mmol MAGNESIUM: 12 mEq CALCIUM: 15 mEq INSULIN: 40 units MULTIPLE VITAMIN: 10 ml TRACE ELEMENTS: 0.5 ml(s) TPN PLAN: Triglycerides >400 - lipid content reduced to 20g/bag, dextrose increased to 225gm per rehabilitation inspector, check trigs again thursday Increase KPhos to 19mmol R: Continue TPN as written above. Will monitor electrolytes, glucose, and tolerance to TPN. PADMINI YOUNG RPH, 07/31/19 [id number]
[2019-07-31 12:19] LABS: BILIRUBIN,URINE SMALL (NEG); CLARITY,URINE CLOUDY; NITRITE,URINE POSITIVE (NEG); PROTEIN,URINE 100 mg/dL (NEG-TRACE)
[2019-07-31 12:25] LABS: COLOR,URINE BROWN
[2019-07-31 12:29] LABS: BACTERIA,URINE FEW /HPF (0-FEW); RBC,URINE >40 /HPF (0-2); SQUAMOUS EPITHELIAL CELL,UR OCC /LPF
[2019-07-31 12:30] LABS: AMORPHOUS SEDIMENT,UR PRESENT /HPF; HYALINE CASTS, URINE FEW /HPF
--- NOTE | 2019-07-31 13:05 | PDOC ---
Renal-Progress Notes Subjective Notes Notes REMAINS ON THE VENT History of Present Illness Hx of present illness STABLE Vitals Vitals Vital Signs Date Time Temp Pulse Resp B/P (MAP) Pulse Ox O2 Delivery O2 Flow Rate FiO2 07/31/19 11:48 98 Ventilator 07/31/19 06:48 18 07/31/19 06:00 113 98/51 (67) 07/31/19 04:00 100.0 100.0 07/30/19 08:23 6.0 Weight Weight [ ] I.O. Intake and Output Intake and Output 07/31/19 07:00 Intake Total 2621.3 ml Output Total 360 ml Balance 2261.3 ml Intake Oral 0 ml IV Total 2621.3 ml Output Urine Total 360 ml Labs Labs Laboratory Tests Test 07/30/19 15:33 07/31/19 00:08 07/31/19 06:00 07/31/19 08:00 Glucose (Fingerstick) 214 mg/dL (70-99) 208 mg/dL (70-99) 172 mg/dL (70-99) White Blood Count 6.6 x10^3/uL (4.0-11.0) Red Blood Count 2.09 x10^6/uL (3.50-5.40) Hemoglobin 6.8 g/dL (12.0-15.5) Hematocrit 21.0 % (36.0-47.0) Mean Corpuscular Volume 100 fL (79-100) Mean Corpuscular Hemoglobin 33 pg (25-35) Mean Corpuscular Hemoglobin Concent 33 g/dL (31-37) Red Cell Distribution Width 22.2 % (11.5-14.5) Platelet Count 287 x10^3/uL (140-400) Neutrophils (%) (Auto) 74 % (31-73) Lymphocytes (%) (Auto) 10 % (24-48) Monocytes (%) (Auto) 11 % (0-9) Eosinophils (%) (Auto) 4 % (0-3) Basophils (%) (Auto) 1 % (0-3) Neutrophils # (Auto) 4.9 x10^3/uL (1.8-7.7) Lymphocytes # (Auto) 0.6 x10^3/uL (1.0-4.8) Monocytes # (Auto) 0.7 x10^3/uL (0.0-1.1) Eosinophils # (Auto) 0.3 x10^3/uL (0.0-0.7) Basophils # (Auto) 0.0 x10^3/uL (0.0-0.2) Sodium Level 135 mmol/L (136-145) Potassium Level 3.6 mmol/L (3.5-5.1) Chloride Level 99 mmol/L (98-107) Carbon Dioxide Level 29 mmol/L (21-32) Anion Gap 7 (6-14) Blood Urea Nitrogen 56 mg/dL (7-20) Creatinine 1.9 mg/dL (0.6-1.0) Estimated GFR (Cockcroft-Gault) 28.1 Glucose Level 174 mg/dL (70-99) Calcium Level 8.9 mg/dL (8.5-10.1) Phosphorus Level 2.9 mg/dL (2.6-4.7) Albumin 2.9 g/dL (3.4-5.0) O2 Saturation 97 % (92-99) Arterial Blood pH 7.47 (7.35-7.45) Arterial Blood pCO2 at Patient Temp 34 mmHg (35-46) Arterial Blood pO2 at Patient Temp 95 mmHg (75-108) Arterial Blood HCO3 24 mmol/L (21-28) Arterial Blood Base Excess 1 mmol/L (-3-3) FiO2 35 Test 07/31/19 12:00 07/31/19 12:42 Urine Collection Type Unknown Urine Color Brown Urine Clarity Cloudy Urine pH 5.0 (<5.0-8.0) Urine Specific [place] >=1.030 (1.000-1.030) Urine Protein 100 mg/dL (NEG-TRACE) Urine Glucose (UA) 100 mg/dL (NEG) Urine Ketones (Stick) Trace mg/dL (NEG) Urine Blood Large (NEG) Urine Nitrite Positive (NEG) Urine Bilirubin Small (NEG) Urine Urobilinogen Dipstick 1.0 mg/dL (0.2 mg/dL) Urine Leukocyte Esterase Small (NEG) Urine RBC >40 /HPF (0-2) Urine WBC 1-4 /HPF (0-4) Urine Squamous Epithelial Cells Occ /LPF Urine Transitional Epithelial Cells Few /LPF Urine Amorphous Sediment Present /HPF Urine Bacteria Few /HPF (0-FEW) Urine Hyaline Casts Few /HPF Urine Mucus Slight /LPF Glucose (Fingerstick) 223 mg/dL (70-99) Micro Micro Microbiology 07/29/19 Blood Culture - Preliminary, Resulted NO GROWTH AFTER 2 DAYS 07/23/19 Urine Culture - Final, Complete 07/23/19 Urine Culture Result 1 (ALEXANDRA) - Final, Complete Review of Systems Constitutional: yes: other (ON THE VENT) Physical Exam General Appearance: other (ON THE VENT) Skin: warm Respiratory: decreased breath sounds Heart: S1S2 Abdomen: soft, bowel sounds present Genitourinary: bladder flat Extremities: pulses present, edema Neurology: other (SEDATED) Assessment Assessment IMP [id number] CRRT ANEMIA LEUCOCYTOSIS-IMPROVING ANASARCA DUE TO 3RD SPACING HYPERKALEMIA-RESOLVED ACIDOSIS AND ACIDEMIA-CONTROLLED ACUTE REPS FAILURE ACUTE PANCREATITIS HYPOALBUMINEMIA HYPOCALCEMIA-FROM SAPONIFICATION-BETTER POOR HD CATHETER FUNCTION PLAN PRBC TODAY TPN TO CONTINUE NEEDED PRBC NEEDED TREAT LOW CA ONLY FOR ARRHYTHMIA OR SYMPTOMS CONT HIRAM VENT SUPPORT PRESSORS NEEDED ANTIBIOTICS WILL FOLLOW VERY POOR PROGNOSIS DONI GARCIA MD Jul 31, 2019 13:05
--- NOTE | 2019-07-31 13:14 | PDOC ---
[facility] PROGRESS NOTE Chief Complaint Chief Complaint Respiratory failure requiring mechanical ventilation (on vent since 07/10) bilateral pleural effusions/pulm edema Sepsis Severe Acute gallstone pancreatitis (not a surgical candidate at this time) with necrosis Acute kidney failure now requiring dialysis Salpingitis Gallstones (Calculus of gallbladder with acute cholecystitis without obstruction) HTN Leukocytosis Hypoxia Uterine fibroid Intractable pain Intractable nausea Covid 19 negative. Acute on chronic anemia EEG: No seizure activity. ESRD on HD Hyperglycemia, persistantly in 200s History of Present Illness History of Present Illness [id number] Patient seen and examined in the ICU She is on the vent spontaneous respirations with 5 of pressure support 35% FiO2 Has a rectal tube and a Lind Has a tracheostomy Urinalysis pending Levo fed is off Discussed with RN Chart reviewed 07/28/19: patient seen in ICU tolerating dialysis. sedated on vent. no acute issues overnight. no fever today. 07/26/2019 No acute events reported overnight, case discussed with nursing staff patient in no acute distress no complaints during my visit, most likely patient will be moving to LTAC soon 07/25/2019 Plans for trach int he am and dialysis in the afternoon, no acute events reported overnight. 07/24/2019 No acute events reported overnight, case discussed with nursing staff patient in no acute distress during my visit 07/23/2019 No acute events reported overnight, patient receiving dialysis today, case discussed with nursing staff patient in no acute distress during my visit 07/22/2019 No new changes remains critically ill, off CRRT, still planning for trach on Thursday unless we manage to wean over the weekend 07/21/2019 Continues to remain critically ill. The patient unable to be taken off ventilatory support as of yet., Discussed with pulmonary applications sales consultant. Planning all tracheostomy on Thursday if he is unable to be weaned off vent 07/20/2019 No acute events reported overnight, no fever or chills, remains critically stable, discussed with mother at bedside. [id number] Patient seen and examined in the ICU She is critically ill Mechanically ventilated Assist-control/25/450/30 with 8 of PEEP She is on cefepime daptomycin Flagyl and micafungin GEN for antibiotic coverage Also getting TPN and CRRT Sedated with Versed Getting IV albumin also She is tachycardic at 112 bpm Temp max 100.0 White blood count is down from 45,000 35,000 today Chart reviewed Discussed with RN [id number] Patient seen and examined in the ICU She remains very critically ill Going for a CT of the abdomen chest and pelvis Ventilated : On assist control 40% FiO2 Discussed with RN Chart reviewed [id number] Patient seen and examined in the ICU She is still on CRRT although we plan to change to hemodialysis soon Chart reviewed Discussed with RN Hemoglobin down to 6.9 (suspect CRRT related , Will let nephrology consider transfusion while on dialysis) [id number] Patient seen and examined in the ICU She is mechanically ventilated Before meals/25/450/30% Also on CRRT Very critically ill Chart reviewed Discussed with RN [id number] Patient seen and examined in the ICU She is now been transferred to the Covid 19 unit so we can rule out Covid and keep her in isolation Very critically ill Intubated and ventilated Assist control 40% Chart reviewed Discussed with RN Still on CRRT Getting a chest x-ray now Very concerned about her prognosis [id number] Patient seen and examined in the ICU She is extremely critically ill Remains mechanically ventilated with assist control/25/450/40% Also on continuous renal replacement therapy Chart reviewed Discussed with RN She has TPN hanging Also on pressors [id number] Patient seen and examined in the ICU She is still requiring CRRT On the vent with assist control but her FiO2 is down to 40% from yesterday Slightly better but still very critically ill Discussed with RN Chart reviewed [id number] Patient seen and examined in the ICU She remains extremely critically ill On IV fentanyl IV Versed IV Doxy On the vent Assist-control/25/450/70% She is critically ill Discussed with RN Chart reviewed Patient is currently on CRRT as well [id number] Patient seen and examined in the ICU She had to be intubated this morning On assist-control 25/450/100% with 10 of PEEP and only satting 87% She is extremely critically ill I'm not sure if she will survive Chart reviewed Discussed with RN Ms Diaz is a 48yo F w/ PMHx HTN, prediabetes who presents the emergency room complaints of abdominal pain. Patient described off and on 3 days. She states is constant, described as a squeezing sensation in a band-like distribution. + nausea, vomiting. She denies any fever or diarrhea. Patient denies any abdominal surgical procedures. She states is worse with movements, car ride. Pain initially was upper abdomen however now pretty much generalized. Last bowel movement was 07/03/2019. Nothing makes her pain better. Patient denies any shortness of breath. She does state the pain moves into her chest. Denies any headache or visual changes. Lipase 31984, AST 401, ALT 249, Bilirubin 1.4. CT abdomen confirms pancreatic inflammation, peripancreatic fluid and inflammatory changes around the pancreas consistent with pancreatitis. Cholelithiasis and 1.4cm uterine fibroid as well as possible left salpingitis. Admitted for further care GI, General surgery, ID, Pulm consulted. 07/04: Overnight per report no urine output. Added dilaudid for pain, PICC placed per IR. Renal US negative.Seen bedside in ICU, given 2L additional NSS and albumin infusion. Still hypotensive, started on levophed. Repeat CT abdomen with necrosis. Updated her fiancee 07/05: Sats are only 87% on nasal cannula oxygen. Dialysis catheter per nephrology 07/06: She is now on BiPAP appears more ill, now on dialysis 07/07: Seen on BiPAP. Her mother and another family member are present and seemed to be good support for her. Currently on dialysis. Appears critically ill 07/08: Overnight Tmax 101.7 , still on BiPAP FiO2 40%, still on low dose Levophed gtt, TPN initiated. On dialysis Overnight still febrile. Dialysis today. She wakes up and responds to pain. No CP. Vitals/I&O Vitals/I&O: Vital Signs Date Time Temp Pulse Resp B/P (MAP) Pulse Ox O2 Delivery O2 Flow Rate FiO2 07/31/19 11:48 98 Ventilator 07/31/19 06:48 18 07/31/19 06:00 113 98/51 (67) 07/31/19 04:00 100.0 100.0 07/30/19 08:23 6.0 I & O 07/30/19 07/30/19 07/31/19 15:00 23:00 07:00 Intake Total 400 ml 50 ml 2171.3 ml Output Total 115 ml 120 ml 125 ml Balance 285 ml -70 ml 2046.3 ml Physical Exam Physical Exam: GENERAL: Sedated, generalized anasarca HEENT: Pupils equal, + NGT, oral cavity dry NECK: Trach/vent LUNGS: Diminished aeration HEART: S1, S2, regular ABDOMEN: Distended, hypoactive BS, Rectal tube in place : Lind (07/04) EXTREMITIES: Generalized edema, no cyanosis, SCDs bilaterally DERMATOLOGIC: Warm and dry. No generalized rash. CENTRAL NERVOUS SYSTEM: Opens eyes to tactile stimuli HDC, LIJ and RUE-PICC without signs of complications General: No acute distress Heart: Other (increased rate) Lungs: Other (dimished in BLL) Abdomen: Normal bowel sounds, Soft, No tenderness Extremities: No edema, Other (SOME CLUBBING ) Skin: Other (mottling noted to extremities ) Labs Labs: Laboratory Tests Test 07/30/19 15:33 07/31/19 00:08 07/31/19 06:00 07/31/19 08:00 Glucose (Fingerstick) 214 mg/dL (70-99) 208 mg/dL (70-99) 172 mg/dL (70-99) White Blood Count 6.6 x10^3/uL (4.0-11.0) Red Blood Count 2.09 x10^6/uL (3.50-5.40) Hemoglobin 6.8 g/dL (12.0-15.5) Hematocrit 21.0 % (36.0-47.0) Mean Corpuscular Volume 100 fL (79-100) Mean Corpuscular Hemoglobin 33 pg (25-35) Mean Corpuscular Hemoglobin Concent 33 g/dL (31-37) Red Cell Distribution Width 22.2 % (11.5-14.5) Platelet Count 287 x10^3/uL (140-400) Neutrophils (%) (Auto) 74 % (31-73) Lymphocytes (%) (Auto) 10 % (24-48) Monocytes (%) (Auto) 11 % (0-9) Eosinophils (%) (Auto) 4 % (0-3) Basophils (%) (Auto) 1 % (0-3) Neutrophils # (Auto) 4.9 x10^3/uL (1.8-7.7) Lymphocytes # (Auto) 0.6 x10^3/uL (1.0-4.8) Monocytes # (Auto) 0.7 x10^3/uL (0.0-1.1) Eosinophils # (Auto) 0.3 x10^3/uL (0.0-0.7) Basophils # (Auto) 0.0 x10^3/uL (0.0-0.2) Sodium Level 135 mmol/L (136-145) Potassium Level 3.6 mmol/L (3.5-5.1) Chloride Level 99 mmol/L (98-107) Carbon Dioxide Level 29 mmol/L (21-32) Anion Gap 7 (6-14) Blood Urea Nitrogen 56 mg/dL (7-20) Creatinine 1.9 mg/dL (0.6-1.0) Estimated GFR (Cockcroft-Gault) 28.1 Glucose Level 174 mg/dL (70-99) Calcium Level 8.9 mg/dL (8.5-10.1) Phosphorus Level 2.9 mg/dL (2.6-4.7) Albumin 2.9 g/dL (3.4-5.0) O2 Saturation 97 % (92-99) Arterial Blood pH 7.47 (7.35-7.45) Arterial Blood pCO2 at Patient Temp 34 mmHg (35-46) Arterial Blood pO2 at Patient Temp 95 mmHg (75-108) Arterial Blood HCO3 24 mmol/L (21-28) Arterial Blood Base Excess 1 mmol/L (-3-3) FiO2 35 Test 07/31/19 12:00 07/31/19 12:42 Urine Collection Type Unknown Urine Color Brown Urine Clarity Cloudy Urine pH 5.0 (<5.0-8.0) Urine Specific [place] >=1.030 (1.000-1.030) Urine Protein 100 mg/dL (NEG-TRACE) Urine Glucose (UA) 100 mg/dL (NEG) Urine Ketones (Stick) Trace mg/dL (NEG) Urine Blood Large (NEG) Urine Nitrite Positive (NEG) Urine Bilirubin Small (NEG) Urine Urobilinogen Dipstick 1.0 mg/dL (0.2 mg/dL) Urine Leukocyte Esterase Small (NEG) Urine RBC >40 /HPF (0-2) Urine WBC 1-4 /HPF (0-4) Urine Squamous Epithelial Cells Occ /LPF Urine Transitional Epithelial Cells Few /LPF Urine Amorphous Sediment Present /HPF Urine Bacteria Few /HPF (0-FEW) Urine Hyaline Casts Few /HPF Urine Mucus Slight /LPF Glucose (Fingerstick) 223 mg/dL (70-99) Assessment and Plan Assessmemt and Plan Problems Medical Problems: (1) Acute pancreatitis Status: Acute (2) Cholelithiasis Status: Acute Respiratory failure requiring intubation Severe Acute gallstone pancreatitis (she is not a surgical candidate as she is too ill) Acute kidney failure now requiring dialysis Salpingo--itis Gallstones (Calculus of gallbladder with acute cholecystitis without obstruction) HTN Leukocytosis Hypoxia Uterine fibroid Hypoxia with respiratory failure Intractable pain Intractable nausea Plan ICU monitoring Vent management per pulm. pressure support as tolerated Dialysis per nephro Merrem (07/26) and Zyvox (07/28) and micafungin Follow cultures Trach care Nutritional support When necessary levo fed Neuro following No plans for sx at present as she is to ill still Discharge disposition pending She is still critically ill Prognosis very guarded Total time 35 min Comment Review of Relevant I have reviewed the following items kolby (where applicable) has been applied. Medications: Current Medications Medications (Trade) Dose Ordered Sig/Yvon Route PRN Reason Start Time Stop Time Status Last Admin Dose Admin Sodium Chloride 90 meq/Potassium Phosphate 15 mmol/ Magnesium Sulfate 12 meq/Calcium Gluconate 15 meq/ Multivitamins 10 ml/Chromium/ Copper/Manganese/ Seleni/Zn 0.5 ml/ Insulin Human Regular 40 unit/ Total Parenteral Nutrition/Amino Acids/Dextrose/ Fat Emulsion Intravenous 1,400 ml @ 58.333 mls/ hr TPN CONT IV 07/30/19 22:00 07/31/19 21:59 07/30/19 21:21 Albumin Human 200 ml @ 200 mls/hr 1X PRN PRN IV Hypotension 07/30/19 13:30 07/30/19 19:29 DC 07/30/19 15:00 Hemodynamically unstable?: No Is patient in severe pain?: No Is NPO status required?: Yes BEBO KIRBY III DO Jul 31, 2019 13:13
[2019-07-31] MEDS: ACETAMINOPHEN 650 MG SUPP.RECT. PR PRN (17:13)
--- NOTE | 2019-07-31 21:15 | NUR ---
new consent needed for blood transfusion. unable to get ahold of first blocker and cutter contact lens Norma, her daughter so message left on phone for second daughter Marce. she phoned unit back, was given update on pt and gave consent for pt to receive blood products. will pass on in report, will continue to closely monitor.
[2019-07-31] MEDS ORDERED: TOTAL PARENTERAL NUTRITION IV SCH ×10 (22:00)
[2019-07-31] MEDS ORDERED: DEXTROSE 70% IV SCH ×10 (22:00)
[2019-07-31] MEDS ORDERED: [UNRECOGNIZED DRUG - OTHER] IV SCH ×10 (22:00)
[2019-07-31] MEDS ORDERED: AMINO ACID IV SCH ×10 (22:00)
[2019-08-01] VITALS (20 sets, daily range): BP systolic 93–167; BP diastolic 51–97
[2019-08-01] MEDS: INSULIN LISPRO 300 UNITS/3 ML VIAL. SQ SCH ×4 (00:12→18:29)
[2019-08-01] MEDS: DEXMEDETOMIDINE 400 MCG in IV NORMAL SALINE 100ML 96 ML IV PRN ×6 (03:03→22:31)
[2019-08-01 04:07] LABS: HEMOGLOBIN A1C 5.4 % (4.8-5.6)
[2019-08-01 06:56] LABS: CREATININE 2.1 mg/dL (0.6-1.0); MAGNESIUM 2.2 mg/dL (1.8-2.4); POTASSIUM 3.6 mmol/L (3.5-5.1)
[2019-08-01 07:09] LABS: BASO % 0 % (0-3); EOS # 0.1 x10^3/uL (0.0-0.7); EOS % 2 % (0-3); HEMATOCRIT 24.3 % (36.0-47.0); LYMPH # 0.5 x10^3/uL (1.0-4.8); LYMPH % 10 % (24-48); MEAN CORPUSCULAR HEMOGLOBIN 32 pg (25-35); MEAN CORPUSCULAR HGB CONC 33 g/dL (31-37); MEAN CORPUSCULAR VOLUME 98 fL (79-100); MONO # 0.6 x10^3/uL (0.0-1.1); MONO % 12 % (0-9); NEUT % 76 % (31-73); PLATELET COUNT 318 x10^3/uL (140-400); RED BLOOD COUNT 2.48 x10^6/uL (3.50-5.40); RED CELL DISTRIBUTION WIDTH 19.3 % (11.5-14.5); WHITE BLOOD COUNT 5.3 x10^3/uL (4.0-11.0)
--- NOTE | 2019-08-01 07:47 | PDOC ---
Infectious Disease Note Subjective Subjective Sedated Trach, vent FiO2 35 % PEEP 5 Now off levaphed Fever Tmax 100 + diarrhea TPN ROS ROS unable to obtain Vital Sign Vital Signs Vital Signs Date Time Temp Pulse Resp B/P (MAP) Pulse Ox O2 Delivery O2 Flow Rate FiO2 08/01/19 07:09 18 99 Ventilator 08/01/19 06:00 86 113/71 (85) 08/01/19 04:00 98.8 98.8 Physical Exam PHYSICAL EXAM GENERAL: Alert but not resposive generalized anasarca HEENT: Pupils equal, + NGT, oral cavity dry NECK: Trach/vent LUNGS: Diminished aeration HEART: S1, S2, regular ABDOMEN: Distended, hypoactive BS, Rectal tube in place : Lind (07/04) EXTREMITIES: Generalized edema, no cyanosis, SCDs bilaterally DERMATOLOGIC: Warm and dry. No generalized rash. CENTRAL NERVOUS SYSTEM: Opens eyes to tactile stimuli HDC, LIJ(07/24) and RUE-PICC without signs of complications Labs Lab Laboratory Tests Test 07/31/19 08:00 07/31/19 12:00 07/31/19 12:42 07/31/19 17:53 O2 Saturation 97 % (92-99) Arterial Blood pH 7.47 (7.35-7.45) Arterial Blood pCO2 at Patient Temp 34 mmHg (35-46) Arterial Blood pO2 at Patient Temp 95 mmHg (75-108) Arterial Blood HCO3 24 mmol/L (21-28) Arterial Blood Base Excess 1 mmol/L (-3-3) FiO2 35 Urine Collection Type Unknown Urine Color Brown Urine Clarity Cloudy Urine pH 5.0 (<5.0-8.0) Urine Specific [place] >=1.030 (1.000-1.030) Urine Protein 100 mg/dL (NEG-TRACE) Urine Glucose (UA) 100 mg/dL (NEG) Urine Ketones (Stick) Trace mg/dL (NEG) Urine Blood Large (NEG) Urine Nitrite Positive (NEG) Urine Bilirubin Small (NEG) Urine Urobilinogen Dipstick 1.0 mg/dL (0.2 mg/dL) Urine Leukocyte Esterase Small (NEG) Urine RBC >40 /HPF (0-2) Urine WBC 1-4 /HPF (0-4) Urine Squamous Epithelial Cells Occ /LPF Urine Transitional Epithelial Cells Few /LPF Urine Amorphous Sediment Present /HPF Urine Bacteria Few /HPF (0-FEW) Urine Hyaline Casts Few /HPF Urine Mucus Slight /LPF Glucose (Fingerstick) 223 mg/dL (70-99) 166 mg/dL (70-99) Test 08/01/19 00:02 08/01/19 06:09 08/01/19 06:10 Glucose (Fingerstick) 201 mg/dL (70-99) 175 mg/dL (70-99) White Blood Count 5.3 x10^3/uL (4.0-11.0) Red Blood Count 2.48 x10^6/uL (3.50-5.40) Hemoglobin 8.0 g/dL (12.0-15.5) Hematocrit 24.3 % (36.0-47.0) Mean Corpuscular Volume 98 fL (79-100) Mean Corpuscular Hemoglobin 32 pg (25-35) Mean Corpuscular Hemoglobin Concent 33 g/dL (31-37) Red Cell Distribution Width 19.3 % (11.5-14.5) Platelet Count 318 x10^3/uL (140-400) Neutrophils (%) (Auto) 76 % (31-73) Lymphocytes (%) (Auto) 10 % (24-48) Monocytes (%) (Auto) 12 % (0-9) Eosinophils (%) (Auto) 2 % (0-3) Basophils (%) (Auto) 0 % (0-3) Neutrophils # (Auto) 4.0 x10^3/uL (1.8-7.7) Lymphocytes # (Auto) 0.5 x10^3/uL (1.0-4.8) Monocytes # (Auto) 0.6 x10^3/uL (0.0-1.1) Eosinophils # (Auto) 0.1 x10^3/uL (0.0-0.7) Basophils # (Auto) 0.0 x10^3/uL (0.0-0.2) Sodium Level 135 mmol/L (136-145) Potassium Level 3.6 mmol/L (3.5-5.1) Chloride Level 98 mmol/L (98-107) Carbon Dioxide Level 23 mmol/L (21-32) Anion Gap 14 (6-14) Blood Urea Nitrogen 80 mg/dL (7-20) Creatinine 2.1 mg/dL (0.6-1.0) Estimated GFR (Cockcroft-Gault) 25.0 Glucose Level 167 mg/dL (70-99) Calcium Level 9.0 mg/dL (8.5-10.1) Magnesium Level 2.2 mg/dL (1.8-2.4) Triglycerides Level 245 mg/dL (0-150) Micro CT A/P, 07/27 IMPRESSION: 1. Increased ascites. 2. 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 Cholelithiasis with thickening of the gallbladder wall. 4. Persistent pleural effusions and atelectasis in the lung bases. Objective Assessment Leukocytosis 07/28 -improved Fever -blood cults 07/28 neg. Severe acute gallstone pancreatitis with necrosis -CT 07/27 necrotizing pancreatitis with fluid and phlegmon at the pancreas -not a surgical candidate at this time Hypotension on levaphed JUANA requiring HD - s/p RIJ temporary dialysis catheter replacement, 07/20 Vent dependent respiratory failure -s/p Trach placement -lung opacities, COVID-19 neg Anasarca - worse Anemia - S/p PRBC 07/13 Hypocalcemia Prediabetes HTN Diarrhea, C. diff neg 07/10 Anemia - S/p PRBCs Plan Plan of Care cont merrem (07/26) and Zyvox (07/28) and micafungin -previously on cefepime, flagyl & dapto Gen surgery following f/u BC from 07/27 neg to date F/u urine cult Maintain aspiration precautions HD today Critically ill D/W WILLY VAZQUEZ MD Aug 01, 2019 07:47
--- NOTE | 2019-08-01 07:51 | PDOC ---
PULMONARY PROGRESS NOTES Subjective Patient intubated on 07/10 , s/p trach remained on assist control starting to track Vitals Vital Signs Date Time Temp Pulse Resp B/P (MAP) Pulse Ox O2 Delivery O2 Flow Rate FiO2 08/01/19 07:09 18 99 Ventilator 08/01/19 07:00 98.3 94 93/53 (66) 98.3 Comments Trach/opens eyes Lungs: Other (dimished in BLL) Cardiovascular: S1, S2 Abdomen: Non-tender, Other (distended) Extremities: Other (+3 generalized edema ) Skin: Warm, Dry Labs Laboratory Tests Test 07/30/19 08:00 07/30/19 15:33 07/30/19 17:30 07/31/19 00:08 O2 Saturation 94 % (92-99) Arterial Blood pH 7.38 (7.35-7.45) Arterial Blood pCO2 at Patient Temp 36 mmHg (35-46) Arterial Blood pO2 at Patient Temp 75 mmHg (75-108) Arterial Blood HCO3 21 mmol/L (21-28) Arterial Blood Base Excess -4 mmol/L (-3-3) FiO2 35 Glucose (Fingerstick) 214 mg/dL (70-99) 208 mg/dL (70-99) Hemoglobin A1c 5.4 % (4.8-5.6) Test 07/31/19 06:00 07/31/19 08:00 07/31/19 12:00 07/31/19 12:42 White Blood Count 6.6 x10^3/uL (4.0-11.0) Red Blood Count 2.09 x10^6/uL (3.50-5.40) Hemoglobin 6.8 g/dL (12.0-15.5) Hematocrit 21.0 % (36.0-47.0) Mean Corpuscular Volume 100 fL (79-100) Mean Corpuscular Hemoglobin 33 pg (25-35) Mean Corpuscular Hemoglobin Concent 33 g/dL (31-37) Red Cell Distribution Width 22.2 % (11.5-14.5) Platelet Count 287 x10^3/uL (140-400) Neutrophils (%) (Auto) 74 % (31-73) Lymphocytes (%) (Auto) 10 % (24-48) Monocytes (%) (Auto) 11 % (0-9) Eosinophils (%) (Auto) 4 % (0-3) Basophils (%) (Auto) 1 % (0-3) Neutrophils # (Auto) 4.9 x10^3/uL (1.8-7.7) Lymphocytes # (Auto) 0.6 x10^3/uL (1.0-4.8) Monocytes # (Auto) 0.7 x10^3/uL (0.0-1.1) Eosinophils # (Auto) 0.3 x10^3/uL (0.0-0.7) Basophils # (Auto) 0.0 x10^3/uL (0.0-0.2) Sodium Level 135 mmol/L (136-145) Potassium Level 3.6 mmol/L (3.5-5.1) Chloride Level 99 mmol/L (98-107) Carbon Dioxide Level 29 mmol/L (21-32) Anion Gap 7 (6-14) Blood Urea Nitrogen 56 mg/dL (7-20) Creatinine 1.9 mg/dL (0.6-1.0) Estimated GFR (Cockcroft-Gault) 28.1 Glucose Level 174 mg/dL (70-99) Glucose (Fingerstick) 172 mg/dL (70-99) 223 mg/dL (70-99) Calcium Level 8.9 mg/dL (8.5-10.1) Phosphorus Level 2.9 mg/dL (2.6-4.7) Albumin 2.9 g/dL (3.4-5.0) O2 Saturation 97 % (92-99) Arterial Blood pH 7.47 (7.35-7.45) Arterial Blood pCO2 at Patient Temp 34 mmHg (35-46) Arterial Blood pO2 at Patient Temp 95 mmHg (75-108) Arterial Blood HCO3 24 mmol/L (21-28) Arterial Blood Base Excess 1 mmol/L (-3-3) FiO2 35 Urine Collection Type Unknown Urine Color Brown Urine Clarity Cloudy Urine pH 5.0 (<5.0-8.0) Urine Specific [place] >=1.030 (1.000-1.030) Urine Protein 100 mg/dL (NEG-TRACE) Urine Glucose (UA) 100 mg/dL (NEG) Urine Ketones (Stick) Trace mg/dL (NEG) Urine Blood Large (NEG) Urine Nitrite Positive (NEG) Urine Bilirubin Small (NEG) Urine Urobilinogen Dipstick 1.0 mg/dL (0.2 mg/dL) Urine Leukocyte Esterase Small (NEG) Urine RBC >40 /HPF (0-2) Urine WBC 1-4 /HPF (0-4) Urine Squamous Epithelial Cells Occ /LPF Urine Transitional Epithelial Cells Few /LPF Urine Amorphous Sediment Present /HPF Urine Bacteria Few /HPF (0-FEW) Urine Hyaline Casts Few /HPF Urine Mucus Slight /LPF Test 07/31/19 17:53 08/01/19 00:02 08/01/19 06:09 08/01/19 06:10 Glucose (Fingerstick) 166 mg/dL (70-99) 201 mg/dL (70-99) 175 mg/dL (70-99) White Blood Count 5.3 x10^3/uL (4.0-11.0) Red Blood Count 2.48 x10^6/uL (3.50-5.40) Hemoglobin 8.0 g/dL (12.0-15.5) Hematocrit 24.3 % (36.0-47.0) Mean Corpuscular Volume 98 fL (79-100) Mean Corpuscular Hemoglobin 32 pg (25-35) Mean Corpuscular Hemoglobin Concent 33 g/dL (31-37) Red Cell Distribution Width 19.3 % (11.5-14.5) Platelet Count 318 x10^3/uL (140-400) Neutrophils (%) (Auto) 76 % (31-73) Lymphocytes (%) (Auto) 10 % (24-48) Monocytes (%) (Auto) 12 % (0-9) Eosinophils (%) (Auto) 2 % (0-3) Basophils (%) (Auto) 0 % (0-3) Neutrophils # (Auto) 4.0 x10^3/uL (1.8-7.7) Lymphocytes # (Auto) 0.5 x10^3/uL (1.0-4.8) Monocytes # (Auto) 0.6 x10^3/uL (0.0-1.1) Eosinophils # (Auto) 0.1 x10^3/uL (0.0-0.7) Basophils # (Auto) 0.0 x10^3/uL (0.0-0.2) Sodium Level 135 mmol/L (136-145) Potassium Level 3.6 mmol/L (3.5-5.1) Chloride Level 98 mmol/L (98-107) Carbon Dioxide Level 23 mmol/L (21-32) Anion Gap 14 (6-14) Blood Urea Nitrogen 80 mg/dL (7-20) Creatinine 2.1 mg/dL (0.6-1.0) Estimated GFR (Cockcroft-Gault) 25.0 Glucose Level 167 mg/dL (70-99) Calcium Level 9.0 mg/dL (8.5-10.1) Magnesium Level 2.2 mg/dL (1.8-2.4) Triglycerides Level 245 mg/dL (0-150) Laboratory Tests Test 07/31/19 08:00 07/31/19 12:00 07/31/19 12:42 07/31/19 17:53 O2 Saturation 97 % (92-99) Arterial Blood pH 7.47 (7.35-7.45) Arterial Blood pCO2 at Patient Temp 34 mmHg (35-46) Arterial Blood pO2 at Patient Temp 95 mmHg (75-108) Arterial Blood HCO3 24 mmol/L (21-28) Arterial Blood Base Excess 1 mmol/L (-3-3) FiO2 35 Urine Collection Type Unknown Urine Color Brown Urine Clarity Cloudy Urine pH 5.0 (<5.0-8.0) Urine Specific [place] >=1.030 (1.000-1.030) Urine Protein 100 mg/dL (NEG-TRACE) Urine Glucose (UA) 100 mg/dL (NEG) Urine Ketones (Stick) Trace mg/dL (NEG) Urine Blood Large (NEG) Urine Nitrite Positive (NEG) Urine Bilirubin Small (NEG) Urine Urobilinogen Dipstick 1.0 mg/dL (0.2 mg/dL) Urine Leukocyte Esterase Small (NEG) Urine RBC >40 /HPF (0-2) Urine WBC 1-4 /HPF (0-4) Urine Squamous Epithelial Cells Occ /LPF Urine Transitional Epithelial Cells Few /LPF Urine Amorphous Sediment Present /HPF Urine Bacteria Few /HPF (0-FEW) Urine Hyaline Casts Few /HPF Urine Mucus Slight /LPF Glucose (Fingerstick) 223 mg/dL (70-99) 166 mg/dL (70-99) Test 08/01/19 00:02 08/01/19 06:09 08/01/19 06:10 Glucose (Fingerstick) 201 mg/dL (70-99) 175 mg/dL (70-99) White Blood Count 5.3 x10^3/uL (4.0-11.0) Red Blood Count 2.48 x10^6/uL (3.50-5.40) Hemoglobin 8.0 g/dL (12.0-15.5) Hematocrit 24.3 % (36.0-47.0) Mean Corpuscular Volume 98 fL (79-100) Mean Corpuscular Hemoglobin 32 pg (25-35) Mean Corpuscular Hemoglobin Concent 33 g/dL (31-37) Red Cell Distribution Width 19.3 % (11.5-14.5) Platelet Count 318 x10^3/uL (140-400) Neutrophils (%) (Auto) 76 % (31-73) Lymphocytes (%) (Auto) 10 % (24-48) Monocytes (%) (Auto) 12 % (0-9) Eosinophils (%) (Auto) 2 % (0-3) Basophils (%) (Auto) 0 % (0-3) Neutrophils # (Auto) 4.0 x10^3/uL (1.8-7.7) Lymphocytes # (Auto) 0.5 x10^3/uL (1.0-4.8) Monocytes # (Auto) 0.6 x10^3/uL (0.0-1.1) Eosinophils # (Auto) 0.1 x10^3/uL (0.0-0.7) Basophils # (Auto) 0.0 x10^3/uL (0.0-0.2) Sodium Level 135 mmol/L (136-145) Potassium Level 3.6 mmol/L (3.5-5.1) Chloride Level 98 mmol/L (98-107) Carbon Dioxide Level 23 mmol/L (21-32) Anion Gap 14 (6-14) Blood Urea Nitrogen 80 mg/dL (7-20) Creatinine 2.1 mg/dL (0.6-1.0) Estimated GFR (Cockcroft-Gault) 25.0 Glucose Level 167 mg/dL (70-99) Calcium Level 9.0 mg/dL (8.5-10.1) Magnesium Level 2.2 mg/dL (1.8-2.4) Triglycerides Level 245 mg/dL (0-150) Medications Active Scripts Medications Dose Route/Sig Max Daily Dose Days Date Category Bisoprolol Fumarate 5 Mg Tablet 10 Mg PO DAILY 07/04/19 Reported Comments Chest x-ray reviewed 07/31 IMPRESSION: 1. Increased moderate to large bilateral posteriorly layering pleural effusions with associated atelectasis on right . Impression . IMPRESSION: 1. Acute hypoxemic respiratory failure secondary to ARDS status post trach, 2. Gallstone pancreatitis.with NECROSIS 3. Severe metabolic acidosis.stable 4. Acute kidney injury-stable 5. Acute gallstone pancreatitis. 6. Hypoalbuminemia. 7. Hypocalcemia. 8. Leukocytosis 9. Chronic anemia 10. Covid 19 testing negative 11. Acute /chronic anemia suspected hemorrhagic fluid in pelvis 12, Fever per ID Plan . CPAP trial as tolerated/ dc all sedation TS in few days extra lasix today. May need right thoracentesis HD in am symptomatic treatment of Fever follow surgery and ID rec Discussed with RN and RT. Transfuse prn, check H/H - Antibiotics per ID, Follow nephrology recs Nutritional support with TPN off pressors Prognosis is guarded DVT/GI PPX d/w RN/RT CC time : 30 minutes reviewing labs, patient care and discussing will care team VINAYAK LANDRUM MD Aug 01, 2019 07:51
--- NOTE | 2019-08-01 07:58 | RAD ---
AP chest x-ray HISTORY: Shortness of breath. COMPARISON: Chest x-ray July 28, 2019. FINDINGS: Tracheostomy. Left subclavian central venous catheter tip distal SVC. Right PICC line tip SVC. Right jugular dialysis catheter tip lower right atrium although could extend to the atrial junction with the IVC. Heart size stable. No pneumothorax. Hyperexpansion of the lungs. Perihilar and lower lobe opacities obscuring the diaphragms likely due to mild left and mild basilar right layering pleural effusions. This is grossly stable. IMPRESSION: Lines and tubes as described above. No pneumothorax. Perihilar and lower lobe opacities likely edema and right greater than left layering pleural effusions as described above. Superimposed lower lobe pneumonia not excluded. Electronically signed by: Reece Carr MD (08/01/2019 7:56 AM) [id number]
[2019-08-01] MEDS: PANTOPRAZOLE IV PUSH 40 MG VIAL. IVP SCH (08:12)
--- NOTE | 2019-08-01 08:12 | PDOC ---
PROGRESS NOTES Chief Complaint Chief Complaint Respiratory failure requiring mechanical ventilation (on vent since 07/10) bilateral pleural effusions/pulm edema Sepsis Severe Acute gallstone pancreatitis (not a surgical candidate at this time) with necrosis Acute kidney failure now requiring dialysis Salpingitis Gallstones (Calculus of gallbladder with acute cholecystitis without obstruction) HTN Leukocytosis Hypoxia Uterine fibroid Intractable pain Intractable nausea Covid 19 negative. Acute on chronic anemia EEG: No seizure activity. ESRD on HD Hyperglycemia, persistently in 200s History of Present Illness History of Present Illness Ms Diaz is a 48yo F w/ PMHx HTN, prediabetes who presented to the emergency room with complaints of abdominal pain on 07/04/2019. Found with Lipase 42540, AST 401, ALT 249, Bilirubin 1.4. CT abdomen confirms pancreatic inflammation, peripancreatic fluid and inflammatory changes around the pancreas consistent with pancreatitis. Cholelithiasis and 1.4cm uterine fibroid as well as possible left salpingitis. Admitted for further care GI, General surgery, ID, Pulm consulted. 07/04: No urine output. Added dilaudid for pain, PICC placed per IR. Renal US negative.Seen bedside in ICU, given 2L additional NSS and albumin infusion. Still hypotensive, started on levophed. Repeat CT abdomen with necrosis. 07/05: O2 saturation 87% on nasal cannula oxygen. Dialysis catheter per nephrology 07/06: She is now on BiPAP appears more ill, now on dialysis 07/07: Seen on BiPAP. Her mother and another family member are present and seemed to be good support for her. Currently on dialysis. Appears critically ill 07/08: Overnight Tmax 101.7 , still on BiPAP FiO2 40%, still on low dose Levophed gtt, TPN initiated. On dialysis 07/24: Tracheostomy 07/30: S/p tracheostomy on vent spontaneous respirations with 5 of pressure support 35% FiO2, rectal tube and a Lind, off pressors Off pressors. Seen on dialysis this morning. BUN 80. Tracking with her eyes. Still on vent via trach. Vitals Vitals Vital Signs Date Time Temp Pulse Resp B/P (MAP) Pulse Ox O2 Delivery O2 Flow Rate FiO2 08/01/19 07:54 Mechanical Ventilator 08/01/19 07:09 18 99 08/01/19 07:00 98.3 94 93/53 (66) 98.3 Physical Exam General: No acute distress Heart: Other (increased rate) Lungs: Other (dimished in BLL) Abdomen: Normal bowel sounds, Soft, No tenderness Extremities: No edema, Other (SOME CLUBBING ) Skin: Other (mottling noted to extremities ) Labs LABS Laboratory Tests Test 07/31/19 12:00 07/31/19 12:42 07/31/19 17:53 08/01/19 00:02 Urine Collection Type Unknown Urine Color Brown Urine Clarity Cloudy Urine pH 5.0 (<5.0-8.0) Urine Specific [place] >=1.030 (1.000-1.030) Urine Protein 100 mg/dL (NEG-TRACE) Urine Glucose (UA) 100 mg/dL (NEG) Urine Ketones (Stick) Trace mg/dL (NEG) Urine Blood Large (NEG) Urine Nitrite Positive (NEG) Urine Bilirubin Small (NEG) Urine Urobilinogen Dipstick 1.0 mg/dL (0.2 mg/dL) Urine Leukocyte Esterase Small (NEG) Urine RBC >40 /HPF (0-2) Urine WBC 1-4 /HPF (0-4) Urine Squamous Epithelial Cells Occ /LPF Urine Transitional Epithelial Cells Few /LPF Urine Amorphous Sediment Present /HPF Urine Bacteria Few /HPF (0-FEW) Urine Hyaline Casts Few /HPF Urine Mucus Slight /LPF Glucose (Fingerstick) 223 mg/dL (70-99) 166 mg/dL (70-99) 201 mg/dL (70-99) Test 08/01/19 06:09 08/01/19 06:10 Glucose (Fingerstick) 175 mg/dL (70-99) White Blood Count 5.3 x10^3/uL (4.0-11.0) Red Blood Count 2.48 x10^6/uL (3.50-5.40) Hemoglobin 8.0 g/dL (12.0-15.5) Hematocrit 24.3 % (36.0-47.0) Mean Corpuscular Volume 98 fL (79-100) Mean Corpuscular Hemoglobin 32 pg (25-35) Mean Corpuscular Hemoglobin Concent 33 g/dL (31-37) Red Cell Distribution Width 19.3 % (11.5-14.5) Platelet Count 318 x10^3/uL (140-400) Neutrophils (%) (Auto) 76 % (31-73) Lymphocytes (%) (Auto) 10 % (24-48) Monocytes (%) (Auto) 12 % (0-9) Eosinophils (%) (Auto) 2 % (0-3) Basophils (%) (Auto) 0 % (0-3) Neutrophils # (Auto) 4.0 x10^3/uL (1.8-7.7) Lymphocytes # (Auto) 0.5 x10^3/uL (1.0-4.8) Monocytes # (Auto) 0.6 x10^3/uL (0.0-1.1) Eosinophils # (Auto) 0.1 x10^3/uL (0.0-0.7) Basophils # (Auto) 0.0 x10^3/uL (0.0-0.2) Sodium Level 135 mmol/L (136-145) Potassium Level 3.6 mmol/L (3.5-5.1) Chloride Level 98 mmol/L (98-107) Carbon Dioxide Level 23 mmol/L (21-32) Anion Gap 14 (6-14) Blood Urea Nitrogen 80 mg/dL (7-20) Creatinine 2.1 mg/dL (0.6-1.0) Estimated GFR (Cockcroft-Gault) 25.0 Glucose Level 167 mg/dL (70-99) Calcium Level 9.0 mg/dL (8.5-10.1) Magnesium Level 2.2 mg/dL (1.8-2.4) Triglycerides Level 245 mg/dL (0-150) Assessment and Plan Assessmemt and Plan Problems Medical Problems: (1) Acute pancreatitis Status: Acute (2) Cholelithiasis Status: Acute Comment Review of Relevant I have reviewed the following items kolby (where applicable) has been applied. Labs Laboratory Tests Test 07/30/19 15:33 07/30/19 17:30 07/31/19 00:08 07/31/19 06:00 Glucose (Fingerstick) 214 mg/dL (70-99) 208 mg/dL (70-99) 172 mg/dL (70-99) Hemoglobin A1c 5.4 % (4.8-5.6) White Blood Count 6.6 x10^3/uL (4.0-11.0) Red Blood Count 2.09 x10^6/uL (3.50-5.40) Hemoglobin 6.8 g/dL (12.0-15.5) Hematocrit 21.0 % (36.0-47.0) Mean Corpuscular Volume 100 fL (79-100) Mean Corpuscular Hemoglobin 33 pg (25-35) Mean Corpuscular Hemoglobin Concent 33 g/dL (31-37) Red Cell Distribution Width 22.2 % (11.5-14.5) Platelet Count 287 x10^3/uL (140-400) Neutrophils (%) (Auto) 74 % (31-73) Lymphocytes (%) (Auto) 10 % (24-48) Monocytes (%) (Auto) 11 % (0-9) Eosinophils (%) (Auto) 4 % (0-3) Basophils (%) (Auto) 1 % (0-3) Neutrophils # (Auto) 4.9 x10^3/uL (1.8-7.7) Lymphocytes # (Auto) 0.6 x10^3/uL (1.0-4.8) Monocytes # (Auto) 0.7 x10^3/uL (0.0-1.1) Eosinophils # (Auto) 0.3 x10^3/uL (0.0-0.7) Basophils # (Auto) 0.0 x10^3/uL (0.0-0.2) Sodium Level 135 mmol/L (136-145) Potassium Level 3.6 mmol/L (3.5-5.1) Chloride Level 99 mmol/L (98-107) Carbon Dioxide Level 29 mmol/L (21-32) Anion Gap 7 (6-14) Blood Urea Nitrogen 56 mg/dL (7-20) Creatinine 1.9 mg/dL (0.6-1.0) Estimated GFR (Cockcroft-Gault) 28.1 Glucose Level 174 mg/dL (70-99) Calcium Level 8.9 mg/dL (8.5-10.1) Phosphorus Level 2.9 mg/dL (2.6-4.7) Albumin 2.9 g/dL (3.4-5.0) Test 07/31/19 08:00 07/31/19 12:00 07/31/19 12:42 07/31/19 17:53 O2 Saturation 97 % (92-99) Arterial Blood pH 7.47 (7.35-7.45) Arterial Blood pCO2 at Patient Temp 34 mmHg (35-46) Arterial Blood pO2 at Patient Temp 95 mmHg (75-108) Arterial Blood HCO3 24 mmol/L (21-28) Arterial Blood Base Excess 1 mmol/L (-3-3) FiO2 35 Urine Collection Type Unknown Urine Color Brown Urine Clarity Cloudy Urine pH 5.0 (<5.0-8.0) Urine Specific [place] >=1.030 (1.000-1.030) Urine Protein 100 mg/dL (NEG-TRACE) Urine Glucose (UA) 100 mg/dL (NEG) Urine Ketones (Stick) Trace mg/dL (NEG) Urine Blood Large (NEG) Urine Nitrite Positive (NEG) Urine Bilirubin Small (NEG) Urine Urobilinogen Dipstick 1.0 mg/dL (0.2 mg/dL) Urine Leukocyte Esterase Small (NEG) Urine RBC >40 /HPF (0-2) Urine WBC 1-4 /HPF (0-4) Urine Squamous Epithelial Cells Occ /LPF Urine Transitional Epithelial Cells Few /LPF Urine Amorphous Sediment Present /HPF Urine Bacteria Few /HPF (0-FEW) Urine Hyaline Casts Few /HPF Urine Mucus Slight /LPF Glucose (Fingerstick) 223 mg/dL (70-99) 166 mg/dL (70-99) Test 08/01/19 00:02 08/01/19 06:09 08/01/19 06:10 Glucose (Fingerstick) 201 mg/dL (70-99) 175 mg/dL (70-99) White Blood Count 5.3 x10^3/uL (4.0-11.0) Red Blood Count 2.48 x10^6/uL (3.50-5.40) Hemoglobin 8.0 g/dL (12.0-15.5) Hematocrit 24.3 % (36.0-47.0) Mean Corpuscular Volume 98 fL (79-100) Mean Corpuscular Hemoglobin 32 pg (25-35) Mean Corpuscular Hemoglobin Concent 33 g/dL (31-37) Red Cell Distribution Width 19.3 % (11.5-14.5) Platelet Count 318 x10^3/uL (140-400) Neutrophils (%) (Auto) 76 % (31-73) Lymphocytes (%) (Auto) 10 % (24-48) Monocytes (%) (Auto) 12 % (0-9) Eosinophils (%) (Auto) 2 % (0-3) Basophils (%) (Auto) 0 % (0-3) Neutrophils # (Auto) 4.0 x10^3/uL (1.8-7.7) Lymphocytes # (Auto) 0.5 x10^3/uL (1.0-4.8) Monocytes # (Auto) 0.6 x10^3/uL (0.0-1.1) Eosinophils # (Auto) 0.1 x10^3/uL (0.0-0.7) Basophils # (Auto) 0.0 x10^3/uL (0.0-0.2) Sodium Level 135 mmol/L (136-145) Potassium Level 3.6 mmol/L (3.5-5.1) Chloride Level 98 mmol/L (98-107) Carbon Dioxide Level 23 mmol/L (21-32) Anion Gap 14 (6-14) Blood Urea Nitrogen 80 mg/dL (7-20) Creatinine 2.1 mg/dL (0.6-1.0) Estimated GFR (Cockcroft-Gault) 25.0 Glucose Level 167 mg/dL (70-99) Calcium Level 9.0 mg/dL (8.5-10.1) Magnesium Level 2.2 mg/dL (1.8-2.4) Triglycerides Level 245 mg/dL (0-150) Laboratory Tests Test 07/31/19 12:00 07/31/19 12:42 07/31/19 17:53 08/01/19 00:02 Urine Collection Type Unknown Urine Color Brown Urine Clarity Cloudy Urine pH 5.0 (<5.0-8.0) Urine Specific [place] >=1.030 (1.000-1.030) Urine Protein 100 mg/dL (NEG-TRACE) Urine Glucose (UA) 100 mg/dL (NEG) Urine Ketones (Stick) Trace mg/dL (NEG) Urine Blood Large (NEG) Urine Nitrite Positive (NEG) Urine Bilirubin Small (NEG) Urine Urobilinogen Dipstick 1.0 mg/dL (0.2 mg/dL) Urine Leukocyte Esterase Small (NEG) Urine RBC >40 /HPF (0-2) Urine WBC 1-4 /HPF (0-4) Urine Squamous Epithelial Cells Occ /LPF Urine Transitional Epithelial Cells Few /LPF Urine Amorphous Sediment Present /HPF Urine Bacteria Few /HPF (0-FEW) Urine Hyaline Casts Few /HPF Urine Mucus Slight /LPF Glucose (Fingerstick) 223 mg/dL (70-99) 166 mg/dL (70-99) 201 mg/dL (70-99) Test 08/01/19 06:09 08/01/19 06:10 Glucose (Fingerstick) 175 mg/dL (70-99) White Blood Count 5.3 x10^3/uL (4.0-11.0) Red Blood Count 2.48 x10^6/uL (3.50-5.40) Hemoglobin 8.0 g/dL (12.0-15.5) Hematocrit 24.3 % (36.0-47.0) Mean Corpuscular Volume 98 fL (79-100) Mean Corpuscular Hemoglobin 32 pg (25-35) Mean Corpuscular Hemoglobin Concent 33 g/dL (31-37) Red Cell Distribution Width 19.3 % (11.5-14.5) Platelet Count 318 x10^3/uL (140-400) Neutrophils (%) (Auto) 76 % (31-73) Lymphocytes (%) (Auto) 10 % (24-48) Monocytes (%) (Auto) 12 % (0-9) Eosinophils (%) (Auto) 2 % (0-3) Basophils (%) (Auto) 0 % (0-3) Neutrophils # (Auto) 4.0 x10^3/uL (1.8-7.7) Lymphocytes # (Auto) 0.5 x10^3/uL (1.0-4.8) Monocytes # (Auto) 0.6 x10^3/uL (0.0-1.1) Eosinophils # (Auto) 0.1 x10^3/uL (0.0-0.7) Basophils # (Auto) 0.0 x10^3/uL (0.0-0.2) Sodium Level 135 mmol/L (136-145) Potassium Level 3.6 mmol/L (3.5-5.1) Chloride Level 98 mmol/L (98-107) Carbon Dioxide Level 23 mmol/L (21-32) Anion Gap 14 (6-14) Blood Urea Nitrogen 80 mg/dL (7-20) Creatinine 2.1 mg/dL (0.6-1.0) Estimated GFR (Cockcroft-Gault) 25.0 Glucose Level 167 mg/dL (70-99) Calcium Level 9.0 mg/dL (8.5-10.1) Magnesium Level 2.2 mg/dL (1.8-2.4) Triglycerides Level 245 mg/dL (0-150) Microbiology 07/29/19 Blood Culture - Preliminary, Resulted NO GROWTH AFTER 2 DAYS 07/23/19 Urine Culture - Final, Complete 07/23/19 Urine Culture Result 1 (ALEXANDRA) - Final, Complete Medications Current Medications Sodium Chloride 1,000 ml @ 1,000 mls/hr Q1H IV Last administered on 07/04/19at 03:00; Start 07/04/19 at 03:00; Stop 07/04/19 at 03:59; Status DC Ondansetron HCl (Zofran) 4 mg 1X ONCE IVP Last administered on 07/04/19at 03:27; Start 07/04/19 at 03:00; Stop 07/04/19 at 03:01; Status DC Morphine Sulfate (Morphine Sulfate) 4 mg 1X ONCE IV ; Start 07/04/19 at 03:00; Stop 07/04/19 at 03:01; Status Cancel Ketorolac Tromethamine (Toradol 30mg Vial) 30 mg 1X ONCE IV Last administered on 07/04/19at 02:54; Start 07/04/19 at 03:00; Stop 07/04/19 at 03:01; Status DC Fentanyl Citrate (Fentanyl 2ml Vial) 25 mcg 1X ONCE IVP Last administered on 07/04/19at 03:23; Start 07/04/19 at 03:30; Stop 07/04/19 at 03:31; Status DC Fentanyl Citrate (Fentanyl 2ml Vial) 100 mcg STK-MED ONCE .ROUTE ; Start 07/04/19 at 03:18; Stop 07/04/19 at 03:18; Status DC Iohexol (Omnipaque 350 Mg/ml) 90 ml 1X ONCE IV Last administered on 07/04/19at 03:25; Start 07/04/19 at 03:30; Stop 07/04/19 at 03:31; Status DC Info (CONTRAST GIVEN -- Rx MONITORING) 1 each PRN DAILY PRN MC SEE COMMENTS; Start 07/04/19 at 03:30; Stop 07/06/19 at 03:29; Status DC Hydromorphone HCl (Dilaudid) 0.5 mg 1X ONCE IV Last administered on 07/04/19at 03:55; Start 07/04/19 at 04:30; Stop 07/04/19 at 04:32; Status DC Ondansetron HCl (Zofran) 4 mg PRN Q8HRS PRN IV NAUSEA/VOMITING 1ST CHOICE; Start 07/04/19 at 05:00; Stop 07/04/19 at 09:27; Status DC Morphine Sulfate (Morphine Sulfate) 2 mg PRN Q2HR PRN IV SEVERE PAIN 7-10 Last administered on 07/05/19at 12:26; Start 07/04/19 at 05:00; Stop 07/05/19 at 14:15; Status DC Sodium Chloride 1,000 ml @ 125 mls/hr Q8H IV Last administered on 07/04/19at 20:56; Start 07/04/19 at 05:00; Stop 07/05/19 at 04:59; Status DC Hydromorphone HCl (Dilaudid) 0.5 mg PRN Q3HRS PRN IV SEVERE PAIN 7-10 Last administered on 07/05/19at 10:06; Start 07/04/19 at 05:00; Stop 07/05/19 at 12:01; Status DC Piperacillin Sod/ Tazobactam Sod 4.5 gm/Sodium Chloride 100 ml @ 200 mls/hr 1X ONCE IV Last administered on 07/04/19at 05:44; Start 07/04/19 at 06:00; Stop 07/04/19 at 06:29; Status DC Ondansetron HCl (Zofran) 4 mg PRN Q4HRS PRN IV NAUSEA/VOMITING 1ST CHOICE Last administered on 07/31/19at 09:56; Start 07/04/19 at 09:30 Insulin Human Lispro (HumaLOG) 0-9 UNITS Q6HRS SQ Last administered on 08/01/19at 06:12; Start 07/04/19 at 09:30 Dextrose (Dextrose 50%-Water Syringe) 12.5 gm PRN Q15MIN PRN IV SEE COMMENTS; Start 07/04/19 at 09:30 Pantoprazole Sodium (PROTONIX VIAL for IV PUSH) 40 mg DAILYAC IVP Last administered on 07/31/19at 09:55; Start 07/04/19 at 11:30 Prochlorperazine Edisylate (Compazine) 10 mg PRN Q6HRS PRN IV NAUSEA/VOMITING, 2nd CHOICE Last administered on 07/05/19at 00:42; Start 07/04/19 at 17:45 Atenolol (Tenormin) 100 mg DAILY PO ; Start 07/05/19 at 09:00; Stop 07/04/19 at 20:08; Status DC Metoprolol Tartrate (Lopressor Vial) 2.5 mg Q6HRS IVP Last administered on 07/05/19at 05:51; Start 07/04/19 at 20:15; Stop 07/05/19 at 10:02; Status DC Metoprolol Tartrate (Lopressor Vial) 5 mg Q6HRS IVP Last administered on 07/14/19at 00:12; Start 07/05/19 at 10:15; Stop 07/16/19 at 08:48; Status DC Hydromorphone HCl (Dilaudid) 1 mg PRN Q3HRS PRN IV SEVERE PAIN 7-10 Last administered on 07/11/19at 05:13; Start 07/05/19 at 12:00; Stop 07/19/19 at 00:25; Status DC Lidocaine HCl (Buffered Lidocaine 1%) 3 ml STK-MED ONCE .ROUTE ; Start 07/05/19 at 12:55; Stop 07/05/19 at 12:56; Status DC Albumin Human 500 ml @ 125 mls/hr 1X ONCE IV Last administered on 07/05/19at 14:33; Start 07/05/19 at 14:30; Stop 07/05/19 at 18:32; Status DC Norepinephrine Bitartrate 8 mg/ Dextrose 258 ml @ 17.299 mls/ hr CONT PRN IV PER PROTOCOL Last administered on 07/29/19at 13:31; Start 07/05/19 at 15:30 Sodium Chloride 1,000 ml @ 125 mls/hr Q8H IV Last administered on 07/05/19at 21:04; Start 07/05/19 at 16:00; Stop 07/06/19 at 02:42; Status DC Albumin Human 500 ml @ 125 mls/hr PRN BID PRN IV After every 2L NSS & BP < 90mm Last administered on 07/20/19at 14:21; Start 07/05/19 at 16:00 Iohexol (Omnipaque 300 Mg/ml) 60 ml 1X ONCE IV Last administered on 07/05/19at 17:20; Start 07/05/19 at 17:00; Stop 07/05/19 at 17:01; Status DC Info (CONTRAST GIVEN -- Rx MONITORING) 1 each PRN DAILY PRN MC SEE COMMENTS; Start 07/05/19 at 17:00; Stop 07/07/19 at 16:59; Status DC Meropenem 1 gm/ Sodium Chloride 100 ml @ 200 mls/hr Q8HRS IV Last administered on 07/06/19at 05:45; Start 07/05/19 at 20:00; Stop 07/06/19 at 08:48; Status DC Furosemide (Lasix) 40 mg 1X ONCE IVP Last administered on 07/05/19at 22:12; Start 07/05/19 at 22:30; Stop 07/05/19 at 22:31; Status DC Calcium Chloride 1000 mg/Sodium Chloride 110 ml @ 220 mls/hr 1X ONCE IV Last administered on 07/05/19at 22:11; Start 07/05/19 at 22:30; Stop 07/05/19 at 22:59; Status DC Albuterol Sulfate (Ventolin Neb Soln) 2.5 mg 1X ONCE NEB Last administered on 07/06/19at 00:56; Start 07/05/19 at 22:30; Stop 07/05/19 at 22:31; Status DC Insulin Human Regular (HumuLIN R VIAL) 5 unit 1X ONCE IV Last administered on 07/05/19at 22:14; Start 07/05/19 at 22:30; Stop 07/05/19 at 22:31; Status DC Magnesium Sulfate 50 ml @ 25 mls/hr 1X ONCE IV Last administered on 07/06/19at 02:57; Start 07/06/19 at 03:00; Stop 07/06/19 at 04:59; Status DC Calcium Gluconate 1000 mg/Sodium Chloride 110 ml @ 220 mls/hr 1X ONCE IV Last administered on 07/06/19at 02:46; Start 07/06/19 at 03:00; Stop 07/06/19 at 03:29; Status DC Sodium Chloride 1,000 ml @ 200 mls/hr Q5H IV Last administered on 07/06/19at 02:46; Start 07/06/19 at 03:00; Stop 07/06/19 at 10:21; Status DC Calcium Gluconate 1000 mg/Sodium Chloride 110 ml @ 220 mls/hr 1X ONCE IV Last administered on 07/06/19at 03:21; Start 07/06/19 at 03:30; Stop 07/06/19 at 03:59; Status DC Sodium Bicarbonate 50 meq/Sodium Chloride 1,050 ml @ 75 mls/hr Q14H IV Last administered on 07/10/19at 21:10; Start 07/06/19 at 07:30; Stop 07/11/19 at 10:28; Status DC Calcium Gluconate 2000 mg/Sodium Chloride 120 ml @ 220 mls/hr 1X ONCE IV Last administered on 07/06/19at 09:05; Start 07/06/19 at 07:30; Stop 07/06/19 at 08:02; Status DC Lidocaine HCl (Xylocaine-Mpf 1% 2ml Vial) 2 ml STK-MED ONCE .ROUTE ; Start 07/06/19 at 08:47; Stop 07/06/19 at 08:47; Status DC Meropenem 500 mg/ Sodium Chloride 50 ml @ 100 mls/hr Q12HR IV Last ad ministered on 07/11/19at 21:01; Start 07/06/19 at 18:00; Stop 07/12/19 at 07:58; Status DC Lidocaine HCl (Buffered Lidocaine 1%) 3 ml STK-MED ONCE .ROUTE ; Start 07/06/19 at 09:46; Stop 07/06/19 at 09:46; Status DC Lidocaine HCl (Buffered Lidocaine 1%) 6 ml 1X ONCE INJ Last administered on 07/06/19at 10:26; Start 07/06/19 at 10:15; Stop 07/06/19 at 10:16; Status DC Info (Tpn Per Pharmacy) 1 each PRN DAILY PRN MC SEE COMMENTS Last administered on 07/31/19at 11:14; Start 07/06/19 at 12:00 Sodium Chloride 1,000 ml @ 1,000 mls/hr Q1H PRN IV hypotension; Start 07/06/19 at 12:07; Stop 07/06/19 at 18:06; Status DC Diphenhydramine HCl (Benadryl) 25 mg 1X PRN PRN IV ITCHING; Start 07/06/19 at 12:15; Stop 07/07/19 at 12:14; Status DC Diphenhydramine HCl (Benadryl) 25 mg 1X PRN PRN IV ITCHING; Start 07/06/19 at 12:15; Stop 07/07/19 at 12:14; Status DC Sodium Chloride 1,000 ml @ 400 mls/hr Q2H30M PRN IV PATENCY; Start 07/06/19 at 12:07; Stop 07/07/19 at 00:06; Status DC Info (PHARMACY MONITORING -- do not chart) 1 each PRN DAILY PRN MC SEE COMMENTS; Start 07/06/19 at 12:15; Stop 07/08/19 at 08:13; Status DC Sodium Chloride 90 meq/Calcium Gluconate 10 meq/ Multivitamins 10 ml/Chromium/ Copper/Manganese/ Seleni/Zn 1 ml/ Total Parenteral Nutrition/Amino Acids/De xtrose/ Fat Emulsion Intravenous 55.005 ml @ 2.292 mls/hr TPN CONT IV ; Start 07/06/19 at 22:00; Stop 07/06/19 at 12:33; Status DC Info (Tpn Per Pharmacy) 1 each PRN DAILY PRN MC SEE COMMENTS; Start 07/06/19 at 12:30; Status UNV Sodium Chloride 90 meq/Calcium Gluconate 10 meq/ Multivitamins 10 ml/Chromium/ Copper/Manganese/ Seleni/Zn 0.5 ml/ Total Parenteral Nutrition/Amino Ac ids/Dextrose/ Fat Emulsion Intravenous 1,512 ml @ 63 mls/hr TPN CONT IV Last administered on 07/06/19at 22:06; Start 07/06/19 at 22:00; Stop 07/07/19 at 21:59; Status DC Calcium Carbonate/ Glycine (Tums) 500 mg PRN AFTMEALHC PRN PO INDIGESTION; Start 07/06/19 at 17:45 Calcium Gluconate (Calcium Gluconate) 2,000 mg 1X ONCE IVP Last administered on 07/07/19at 02:19; Start 07/07/19 at 02:15; Stop 07/07/19 at 02:16; Status DC Calcium Chloride 3000 mg/Sodium Chloride 1,030 ml @ 50 mls/hr [id number] IV Last administered on 07/09/19at 02:17; Start 07/07/19 at 08:00; Stop 07/09/19 at 15:23; Status DC Lorazepam (Ativan Inj) 1 mg PRN Q4HRS PRN IVP ANXIETY / AGITATION Last administered on 07/11/19at 00:34; Start 07/07/19 at 09:00 Sodium Chloride 1,000 ml @ 1,000 mls/hr Q1H PRN IV hypotension; Start 07/07/19 at 08:56; Stop 07/07/19 at 14:55; Status DC Albumin Human 200 ml @ 200 mls/hr 1X PRN PRN IV Hypotension; Start 07/07/19 at 09:00; Stop 07/07/19 at 14:59; Status DC Diphenhydramine HCl (Benadryl) 25 mg 1X PRN PRN IV ITCHING; Start 07/07/19 at 09:00; Stop 07/08/19 at 08:59; Status DC Diphenhydramine HCl (Benadryl) 25 mg 1X PRN PRN IV ITCHING; Start 07/07/19 at 09:00; Stop 07/08/19 at 08:59; Status DC Sodium Chloride 1,000 ml @ 400 mls/hr Q2H30M PRN IV PATENCY; Start 07/07/19 at 08:56; Stop 07/07/19 at 20:55; Status DC Info (PHARMACY MONITORING -- do not chart) 1 each PRN DAILY PRN MC SEE COMMENTS; Start 07/07/19 at 09:00; Status UNV Info (PHARMACY MONITORING -- do not chart) 1 each PRN DAILY PRN MC SEE COMMENTS; Start 07/07/19 at 09:00; Stop 07/08/19 at 08:13; Status DC Digoxin (Lanoxin) 500 mcg 1X ONCE IV Last administered on 07/07/19at 10:04; Start 07/07/19 at 10:00; Stop 07/07/19 at 10:01; Status DC Digoxin (Lanoxin) 125 mcg 1X ONCE IV Last administered on 07/07/19at 17:10; Start 07/07/19 at 18:00; Stop 07/07/19 at 18:01; Status DC Magnesium Sulfate 100 ml @ 25 mls/hr 1X ONCE IV Last administered on 07/07/19at 12:48; Start 07/07/19 at 13:00; Stop 07/07/19 at 16:59; Status DC Sodium Chloride 90 meq/Magnesium Sulfate 10 meq/ Calcium Gluconate 20 meq/ Multivitamins 10 ml/Chromium/ Copper/Manganese/ Seleni/Zn 0.5 ml/ Total Parenteral Nutrition/Amino Acids/Dextrose/ Fat Emulsion Intravenous 1,512 ml @ 63 mls/hr TPN CONT IV Last administered on 07/07/19at 22:25; Start 07/07/19 at 22:00; Stop 07/08/19 at 21:59; Status DC Sodium Chloride 1,000 ml @ 1,000 mls/hr Q1H PRN IV hypotension; Start 07/08/19 at 08:05; Stop 07/08/19 at 14:04; Status DC Albumin Human 200 ml @ 200 mls/hr 1X ONCE IV Last administered on 07/08/19at 08:57; Start 07/08/19 at 08:15; Stop 07/08/19 at 09:14; Status DC Diphenhydramine HCl (Benadryl) 25 mg 1X PRN PRN IV ITCHING; Start 07/08/19 at 08:15; Stop 07/09/19 at 08:14; Status DC Diphenhydramine HCl (Benadryl) 25 mg 1X PRN PRN IV ITCHING; Start 07/08/19 at 08:15; Stop 07/09/19 at 08:14; Status DC Sodium Chloride 1,000 ml @ 400 mls/hr Q2H30M PRN IV PATENCY; Start 07/08/19 at 08:05; Stop 07/08/19 at 20:04; Status DC Info (PHARMACY MONITORING -- do not chart) 1 each PRN DAILY PRN MC SEE COMMENTS; Start 07/08/19 at 08:15; Stop 07/12/19 at 07:57; Status DC Sodium Chloride 90 meq/Potassium Chloride 15 meq/ Potassium Phosphate 10 mmol/ Magnesium Sulfate 10 meq/Calcium Gluconate 20 meq/ Multivitamins 10 ml/Chromium/ Copper/Manganese/ Seleni/Zn 0.5 ml/ Total Parenteral Nutrition/Amino Acids/Dextrose/ Fat Emulsion Intravenous 1,512 ml @ 63 mls/hr TPN CONT IV Last administered on 07/08/19at 21:01; Start 07/08/19 at 22:00; Stop 07/09/19 at 21:59; Status DC Potassium Chloride/Water 100 ml @ 100 mls/hr 1X ONCE IV Last administered on 07/08/19at 14:09; Start 07/08/19 at 14:00; Stop 07/08/19 at 14:59; Status DC Benzocaine (Hurricaine One) 1 spray 1X ONCE MM Last administered on 07/08/19at 16:38; Start 07/08/19 at 14:30; Stop 07/08/19 at 14:31; Status DC Lidocaine HCl (Glydo (Lidocaine) Jelly) 1 ramu 1X ONCE MM Last administered on 07/08/19at 16:38; Start 07/08/19 at 14:30; Stop 07/08/19 at 14:31; Status DC Linezolid/Dextrose 300 ml @ 300 mls/hr Q12HR IV Last administered on 07/14/19at 21:04; Start 07/08/19 at 20:00; Stop 07/15/19 at 07:50; Status DC Acetaminophen (Tylenol) 650 mg PRN Q6HRS PRN PO MILD PAIN / TEMP; Start 07/09/19 at 03:30; Stop 07/09/19 at 03:36; Status DC Acetaminophen (Tylenol) 650 mg PRN Q6HRS PRN PEG MILD PAIN / TEMP Last administered on 07/14/19at 07:35; Start 07/09/19 at 03:36 Sodium Chloride 1,000 ml @ 1,000 mls/hr Q1H PRN IV hypotension; Start 07/09/19 at 07:50; Stop 07/09/19 at 13:49; Status DC Albumin Human 200 ml @ 200 mls/hr 1X PRN PRN IV Hypotension; Start 07/09/19 at 08:00; Stop 07/09/19 at 13:59; Status DC Sodium Chloride (Normal Saline Flush) 10 ml 1X PRN PRN IV AP catheter pack; Start 07/09/19 at 08:00; Stop 07/10/19 at 07:59; Status DC Sodium Chloride (Normal Saline Flush) 10 ml 1X PRN PRN IV 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; Start 07/09/19 at 08:00; Stop 07/10/19 at 07:59; Status DC Sodium Chloride 1,000 ml @ 400 mls/hr Q2H30M PRN IV PATENCY; Start 07/09/19 at 07:50; Stop 07/09/19 at 19:49; Status DC Info (PHARMACY MONITORING -- do not chart) 1 each PRN DAILY PRN MC SEE COMMENTS; Start 07/09/19 at 08:00; Status UNV Info (PHARMACY MONITORING -- do not chart) 1 each PRN DAILY PRN MC SEE COMMENTS; Start 07/09/19 at 08:00; Stop 07/11/19 at 08:25; Status DC Sodium Chloride 90 meq/Potassium Chloride 15 meq/ Potassium Phosphate 10 mmol/ Magnesium Sulfate 10 meq/Calcium Gluconate 20 meq/ Multivitamins 10 ml/Chromium/ Copper/Manganese/ Seleni/Zn 0.5 ml/ Total Parenteral Nutrition/Amino Acids/Dextrose/ Fat Emulsion Intravenous 1,512 ml @ 63 mls/hr TPN CONT IV Last administered on 07/09/19at 20:57; Start 07/09/19 at 22:00; Stop 07/10/19 at 21:59; Status DC Sodium Chloride 90 meq/Potassium Chloride 15 meq/ Potassium Phosphate 15 mmol/ Magnesium Sulfate 10 meq/Calcium Gluconate 20 meq/ Multivitamins 10 ml/Chromium/ Copper/Manganese/ Seleni/Zn 0.5 ml/ Total Parenteral Nutrition/Amino Acids/Dextrose/ Fat Emulsion Intravenous 1,512 ml @ 63 mls/hr TPN CONT IV ; Start 07/10/19 at 22:00; Stop 07/10/19 at 14:16; Status DC Sodium Chloride 90 meq/Potassium Chloride 15 meq/ Potassium Phosphate 15 mmol/ Magnesium Sulfate 10 meq/Calcium Gluconate 20 meq/ Multivitamins 10 ml/Chromium/ Copper/Manganese/ Seleni/Zn 0.5 ml/ Total Parenteral Nutrition/Amino Acids/Dextrose/ Fat Emulsion Intravenous 1,200 ml @ 50 mls/hr TPN CONT IV ; Start 07/10/19 at 22:00; Stop 07/10/19 at 14:17; Status DC Sodium Chloride 90 meq/Potassium Chloride 15 meq/ Potassium Phosphate 10 mmol/ Magnesium Sulfate 10 meq/Calcium Gluconate 20 meq/ Multivitamins 10 ml/Chromium/ Copper/Manganese/ Seleni/Zn 0.5 ml/ Total Parenteral Nutrition/Amino Acids/Dextrose/ Fat Emulsion Intravenous 1,200 ml @ 50 mls/hr TPN CONT IV Last administered on 07/10/19at 23:29; Start 07/10/19 at 22:00; Stop 07/11/19 at 21:59; Status DC Sodium Chloride 1,000 ml @ 1,000 mls/hr Q1H PRN IV hypotension; Start 07/11/19 at 07:28; Stop 07/11/19 at 13:27; Status DC Albumin Human 200 ml @ 200 mls/hr 1X ONCE IV Last administered on 07/11/19at 08:51; Start 07/11/19 at 07:30; Stop 07/11/19 at 08:29; Status DC Diphenhydramine HCl (Benadryl) 25 mg 1X PRN PRN IV ITCHING; Start 07/11/19 at 07:30; Stop 07/12/19 at 07:29; Status DC Diphenhydramine HCl (Benadryl) 25 mg 1X PRN PRN IV ITCHING; Start 07/11/19 at 07:30; Stop 07/12/19 at 07:29; Status DC Sodium Chloride 1,000 ml @ 400 mls/hr Q2H30M PRN IV PATENCY; Start 07/11/19 at 07:28; Stop 07/11/19 at 19:27; Status DC Info (PHARMACY MONITORING -- do not chart) 1 each PRN DAILY PRN MC SEE COMMENTS; Start 07/11/19 at 07:30; Stop 07/22/19 at 13:01; Status DC Metronidazole 100 ml @ 100 mls/hr Q6HRS IV Last administered on 07/27/19at 06:26; Start 07/11/19 at 08:30; Stop 07/27/19 at 09:58; Status DC Micafungin Sodium 100 mg/Dextrose 100 ml @ 100 mls/hr Q24H IV Last administered on 07/31/19at 10:26; Start 07/11/19 at 09:00 Propofol 0 ml @ As Directed STK-MED ONCE IV ; Start 07/11/19 at 07:53; Stop 07/11/19 at 07:53; Status DC Etomidate (Amidate) 20 mg STK-MED ONCE IV ; Start 07/11/19 at 07:53; Stop 07/11/19 at 07:54; Status DC Midazolam HCl (Versed) 5 mg STK-MED ONCE .ROUTE ; Start 07/11/19 at 07:57; Stop 07/11/19 at 07:57; Status DC Fentanyl Citrate 30 ml @ 0 mls/hr CONT PRN IV SEE PROTOCOL Last administered on 08/01/19at 07:09; Start 07/11/19 at 08:15 Artificial Tears (Artificial Tears) 1 drop PRN Q1HR PRN OU DRY EYE, 1st choice; Start 07/11/19 at 08:15 Midazolam HCl 50 mg/Sodium Chloride 50 ml @ 0 mls/hr CONT PRN IV SEE PROTOCOL Last administered on 07/14/19at 22:39; Start 07/11/19 at 08:15; Stop 07/16/19 at 15:59; Status DC Etomidate (Amidate) 8 mg 1X ONCE IV Last administered on 07/11/19at 08:33; Start 07/11/19 at 08:30; Stop 07/11/19 at 08:31; Status DC Succinylcholine Chloride (Anectine) 120 mg 1X ONCE IV Last administered on 07/11/19at 08:34; Start 07/11/19 at 08:30; Stop 07/11/19 at 08:31; Status DC Midazolam HCl (Versed) 5 mg 1X ONCE IV ; Start 07/11/19 at 08:30; Stop 07/11/19 at 08:31; Status DC Potassium Chloride 15 meq/ Bicarbonate Dialysis Soln w/ out KCl 5,007.5 ml @ 1,000 mls/ hr Q5H1M IV Last administered on 07/12/19at 11:11; Start 07/11/19 at 12:00; Stop 07/12/19 at 11:15; Status DC Potassium Chloride 15 meq/ Bicarbonate Dialysis Soln w/ out KCl 5,007.5 ml @ 1,000 mls/ hr Q5H1M IV Last administered on 07/12/19at 11:12; Start 07/11/19 at 12:00; Stop 07/12/19 at 11:17; Status DC Potassium Chloride 15 meq/ Bicarbonate Dialysis Soln w/ out KCl 5,007.5 ml @ 1,000 mls/ hr Q5H1M IV Last administered on 07/12/19at 11:11; Start 07/11/19 at 12:00; Stop 07/12/19 at 11:19; Status DC Sodium Chloride 90 meq/Potassium Chloride 15 meq/ Potassium Phosphate 10 mmol/ Magnesium Sulfate 10 meq/Calcium Gluconate 20 meq/ Multivitamins 10 ml/Chromium/ Copper/Manganese/ Seleni/Zn 0.5 ml/ Total Parenteral Nutrition/Amino Acids/Dextrose/ Fat Emulsion Intravenous 1,400 ml @ 58.333 mls/ hr TPN CONT IV Last administered on 07/11/19at 21:42; Start 07/11/19 at 22:00; Stop 07/12/19 at 21:59; Status DC Heparin Sodium (Porcine) (Heparin Sodium) 5,000 unit Q8HRS SQ Last administered on 07/16/19at 05:55; Start 07/11/19 at 15:00; Stop 07/16/19 at 13:28; Status DC Meropenem 500 mg/ Sodium Chloride 50 ml @ 100 mls/hr Q6HRS IV Last administered on 07/13/19at 06:00; Start 07/12/19 at 09:00; Stop 07/13/19 at 07:29; Status DC Potassium Phosphate 20 mmol/ Sodium Chloride 106.6667 ml @ 51.667 m... 1X ONCE IV Last administered on 07/12/19at 11:22; Start 07/12/19 at 10:15; Stop 07/12/19 at 12:18; Status DC Acetaminophen (Tylenol Supp) 650 mg PRN Q6HRS PRN SD MILD PAIN / TEMP Last ad ministered on 07/31/19at 17:13; Start 07/12/19 at 10:30 Potassium Chloride/Water 100 ml @ 100 mls/hr Q1H IV Last administered on 07/12/19at 12:12; Start 07/12/19 at 11:00; Stop 07/12/19 at 12:59; Status DC Potassium Chloride 20 meq/ Bicarbonate Dialysis Soln w/ out KCl 5,010 ml @ 1,000 mls/hr Q5H1M IV Last administered on 07/13/19at 08:48; Start 07/12/19 at 12:00; Stop 07/13/19 at 13:03; Status DC Potassium Chloride 20 meq/ Bicarbonate Dialysis Soln w/ out KCl 5,010 ml @ 1,000 mls/hr Q5H1M IV Last administered on 07/17/19at 14:52; Start 07/12/19 at 11:30; Stop 07/17/19 at 19:59; Status DC Potassium Chloride 20 meq/ Bicarbonate Dialysis Soln w/ out KCl 5,010 ml @ 1,000 mls/hr Q5H1M IV Last administered on 07/17/19at 14:53; Start 07/12/19 at 11:30; Stop 07/17/19 at 19:59; Status DC Sodium Chloride 90 meq/Potassium Chloride 15 meq/ Potassium Phosphate 15 mmol/ Magnesium Sulfate 10 meq/Calcium Gluconate 15 meq/ Multivitamins 10 ml/Chromium/ Copper/Manganese/ Seleni/Zn 0.5 ml/ Total Parenteral Nutrition/Amino Acids/Dextrose/ Fat Emulsion Intravenous 1,400 ml @ 58.333 mls/ hr TPN CONT IV Last administered on 07/12/19at 22:17; Start 07/12/19 at 22:00; Stop 07/13/19 at 21:59; Status DC Cefepime HCl (Maxipime) 2 gm Q12HR IVP Last administered on 07/26/19at 20:56; Start 07/13/19 at 09:00; Stop 07/27/19 at 09:58; Status DC Daptomycin 500 mg/ Sodium Chloride 50 ml @ 100 mls/hr Q48H IV Last administered on 07/29/19at 09:57; Start 07/13/19 at 08:30; Stop 07/29/19 at 10:07; Status DC Lidocaine HCl (Buffered Lidocaine 1%) 3 ml 1X ONCE INJ Last administered on 07/13/19at 10:27; Start 07/13/19 at 10:30; Stop 07/13/19 at 10:31; Status DC Potassium Phosphate 20 mmol/ Sodium Chloride 106.6667 ml @ 51.667 m... 1X ONCE IV Last administered on 07/13/19at 12:51; Start 07/13/19 at 13:00; Stop 07/13/19 at 15:03; Status DC Sodium Chloride 90 meq/Potassium Chloride 15 meq/ Potassium Phosphate 18 mmol/ Magnesium Sulfate 8 meq/Calcium Gluconate 15 meq/ Multivitamins 10 ml/Chromium/ Copper/Manganese/ Seleni/Zn 0.5 ml/ Total Parenteral Nutrition/Amino Acids/Dextrose/ Fat Emulsion Intravenous 1,400 ml @ 58.333 mls/ hr TPN CONT IV Last administered on 07/13/19at 22:16; Start 07/13/19 at 22:00; Stop 07/14/19 at 21:59; Status DC Potassium Chloride 20 meq/ Bicarbonate Dialysis Soln w/ out KCl 5,010 ml @ 1,000 mls/hr Q5H1M IV Last administered on 07/17/19at 14:54; Start 07/13/19 at 16:00; Stop 07/17/19 at 19:59; Status DC Multi-Ingred Cream/Lotion/Oil/ Oint (Artificial Tears Eye Ointment) 1 ramu PRN Q1HR PRN OU DRY EYE, 2nd choice Last administered on 07/22/19at 11:05; Start 07/13/19 at 17:30 Sodium Chloride 90 meq/Potassium Chloride 15 meq/ Potassium Phosphate 18 mmol/ Magnesium Sulfate 8 meq/Calcium Gluconate 15 meq/ Multivitamins 10 ml/Chromium/ Copper/Manganese/ Seleni/Zn 0.5 ml/ Total Parenteral Nutrition/Amino Acids/Dextrose/ Fat Emulsion Intravenous 1,400 ml @ 58.333 mls/ hr TPN CONT IV Last administered on 07/14/19at 22:00; Start 07/14/19 at 22:00; Stop 07/15/19 at 21:59; Status DC Albumin Human 500 ml @ 125 mls/hr 1X ONCE IV ; Start 07/14/19 at 14:15; Stop 07/14/19 at 18:14; Status DC Sodium Chloride 90 meq/Potassium Chloride 15 meq/ Potassium Phosphate 18 mmol/ Magnesium Sulfate 8 meq/Calcium Gluconate 15 meq/ Multivitamins 10 ml/Chromium/ Copper/Manganese/ Seleni/Zn 0.5 ml/ Insulin Human Regular 10 unit/ Total Parenteral Nutrition/Amino Acids/Dextrose/ Fat Emulsion Intravenous 1,400 ml @ 58.333 mls/ hr TPN CONT IV Last administered on 07/15/19at 21:43; Start 07/15/19 at 22:00; Stop 07/16/19 at 21:59; Status DC Lidocaine HCl (Buffered Lidocaine 1%) 3 ml [facility]MED ONCE .ROUTE ; Start 07/13/19 at 10:00; Stop 07/15/19 at 13:57; Status DC Midazolam HCl 100 mg/Sodium Chloride 100 ml @ 7 mls/hr CONT PRN IV SEE PROTOCOL Last administered on 07/27/19at 15:35; Start 07/16/19 at 16:00 Sodium Chloride 90 meq/Potassium Chloride 15 meq/ Potassium Phosphate 18 mmol/ Magnesium Sulfate 8 meq/Calcium Gluconate 15 meq/ Multivitamins 10 ml/Chromium/ Copper/Manganese/ Seleni/Zn 0.5 ml/ Insulin Human Regular 15 unit/ Total Parenteral Nutrition/Amino Acids/Dextrose/ Fat Emulsion Intravenous 1,400 ml @ 58.333 mls/ hr TPN CONT IV Last administered on 07/16/19at 20:34; Start 07/16/19 at 22:00; Stop 07/17/19 at 21:59; Status DC Info (Icu Electrolyte Protocol) 1 ea CONT PRN PRN MC PER PROTOCOL; Start 07/17/19 at 13:15 Sodium Chloride 90 meq/Potassium Chloride 15 meq/ Potassium Phosphate 18 mmol/ Magnesium Sulfate 8 meq/Calcium Gluconate 15 meq/ Multivitamins 10 ml/Chromium/ Copper/Manganese/ Seleni/Zn 0.5 ml/ Insulin Human Regular 15 unit/ Total Pa renteral Nutrition/Amino Acids/Dextrose/ Fat Emulsion Intravenous 1,400 ml @ 58.333 mls/ hr TPN CONT IV Last administered on 07/17/19at 22:05; Start 07/17/19 at 22:00; Stop 07/18/19 at 21:59; Status DC Potassium Chloride 15 meq/ Bicarbonate Dialysis Soln w/ out KCl 5,007.5 ml @ 1,000 mls/ hr Q5H1M IV Last administered on 07/20/19at 18:14; Start 07/17/19 at 20:00; Stop 07/21/19 at 13:08; Status DC Potassium Chloride 15 meq/ Bicarbonate Dialysis Soln w/ out KCl 5,007.5 ml @ 1,000 mls/ hr Q5H1M IV Last administered on 07/20/19at 18:14; Start 07/17/19 at 20:00; Stop 07/21/19 at 13:08; Status DC Potassium Chloride 15 meq/ Bicarbonate Dialysis Soln w/ out KCl 5,007.5 ml @ 1,000 mls/ hr Q5H1M IV Last administered on 07/20/19at 18:14; Start 07/17/19 at 20:00; Stop 07/21/19 at 13:08; Status DC Iohexol (Omnipaque 240 Mg/ml) 30 ml 1X ONCE PO Last administered on 07/18/19at 11:30; Start 07/18/19 at 11:30; Stop 07/18/19 at 11:33; Status DC Info (CONTRAST GIVEN -- Rx MONITORING) 1 each PRN DAILY PRN MC SEE COMMENTS; Start 07/18/19 at 11:45; Stop 07/20/19 at 11:44; Status DC Sodium Chloride 90 meq/Potassium Chloride 15 meq/ Potassium Phosphate 18 mmol/ Magnesium Sulfate 8 meq/Calcium Gluconate 15 meq/ Multivitamins 10 ml/Chromium/ Copper/Manganese/ Seleni/Zn 0.5 ml/ Insulin Human Regular 15 unit/ Total Parenteral Nutrition/Amino Acids/Dextrose/ Fat Emulsion Intravenous 1,400 ml @ 58.333 mls/ hr TPN CONT IV Last administered on 07/18/19at 21:47; Start 07/18/19 at 22:00; Stop 07/19/19 at 21:59; Status DC Sodium Chloride 90 meq/Potassium Chloride 15 meq/ Potassium Phosphate 18 mmol/ Magnesium Sulfate 8 meq/Calcium Gluconate 15 meq/ Multivitamins 10 ml/Chromium/ Copper/Manganese/ Seleni/Zn 0.5 ml/ Insulin Human Regular 20 unit/ Total Parenteral Nutrition/Amino Acids/Dextrose/ Fat Emulsion Intravenous 1,400 ml @ 58.333 mls/ hr TPN CONT IV Last administered on 07/19/19at 21:36; Start 07/19/19 at 22:00; Stop 07/20/19 at 21:59; Status DC Alteplase, Recombinant (Cathflo For Central Catheter Clearance) 1 mg 1X ONCE INT CAT Last administered on 07/19/19at 20:03; Start 07/19/19 at 19:30; Stop 07/19/19 at 19:46; Status DC Alteplase, Recombinant (Cathflo For Central Catheter Clearance) 1 mg 1X ONCE INT CAT Last administered on 07/19/19at 22:05; Start 07/19/19 at 22:00; Stop 07/19/19 at 22:01; Status DC Sodium Chloride 90 meq/Potassium Chloride 15 meq/ Potassium Phosphate 18 mmol/ Magnesium Sulfate 8 meq/Calcium Gluconate 15 meq/ Multivitamins 10 ml/Chromium/ Copper/Manganese/ Seleni/Zn 0.5 ml/ Insulin Human Regular 20 unit/ Total Parenteral Nutrition/Amino Acids/Dextrose/ Fat Emulsion Intravenous 1,400 ml @ 58.333 mls/ hr TPN CONT IV Last administered on 07/20/19at 21:30; Start 07/20/19 at 22:00; Stop 07/21/19 at 21:59; Status DC Dexmedetomidine HCl 400 mcg/ Sodium Chloride 100 ml @ 0 mls/hr CONT PRN IV ANXIETY / AGITATION Last administered on 08/01/19at 06:04; Start 07/21/19 at 08:15 Sodium Chloride 500 ml @ 500 mls/hr 1X PRN PRN IV ELEVATED BP, SEE COMMENTS; Start 07/21/19 at 08:15 Atropine Sulfate (ATROPINE 0.5mg SYRINGE) 0.5 mg PRN Q5MIN PRN IV SEE COMMENTS; Start 07/21/19 at 08:15 Furosemide (Lasix) 20 mg 1X ONCE IVP Last administered on 07/21/19at 08:19; Start 07/21/19 at 08:15; Stop 07/21/19 at 08:16; Status DC Lidocaine HCl (Buffered Lidocaine 1%) 3 ml STK-MED ONCE .ROUTE ; Start 07/21/19 at 08:39; Stop 07/21/19 at 08:39; Status DC Lidocaine HCl (Buffered Lidocaine 1%) 6 ml 1X ONCE INJ Last administered on 07/21/19at 09:05; Start 07/21/19 at 09:00; Stop 07/21/19 at 09:06; Status DC Sodium Chloride 90 meq/Potassium Chloride 15 meq/ Potassium Phosphate 18 mmol/ Magnesium Sulfate 8 meq/Calcium Gluconate 15 meq/ Multivitamins 10 ml/Chromium/ Copper/Manganese/ Seleni/Zn 0.5 ml/ Insulin Human Regular 20 unit/ Total Parenteral Nutrition/Amino Acids/Dextrose/ Fat Emulsion Intravenous 1,400 ml @ 58.333 mls/ hr TPN CONT IV Last administered on 07/21/19at 22:45; Start 07/21/19 at 22:00; Stop 07/22/19 at 21:59; Status DC Sodium Chloride 1,000 ml @ 1,000 mls/hr Q1H PRN IV hypotension; Start 07/22/19 at 07:30; Stop 07/22/19 at 13:29; Status DC Albumin Human 200 ml @ 200 mls/hr 1X PRN PRN IV Hypotension Last administered on 07/22/19at 09:36; Start 07/22/19 at 07:30; Stop 07/22/19 at 13:29; Status DC Sodium Chloride (Normal Saline Flush) 10 ml 1X PRN PRN IV AP catheter pack; Start 07/22/19 at 07:30; Stop 07/22/19 at 21:29; Status DC Sodium Chloride (Normal Saline Flush) 10 ml 1X PRN PRN IV 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; Start 07/22/19 at 07:30; Stop 07/23/19 at 07:29; Status DC Sodium Chloride 1,000 ml @ 400 mls/hr Q2H30M PRN IV PATENCY; Start 07/22/19 at 07:30; Stop 07/22/19 at 19:29; Status DC Info (PHARMACY MONITORING -- do not chart) 1 each PRN DAILY PRN MC SEE COMMENTS; Start 07/22/19 at 07:30; Stop 07/22/19 at 13:02; Status DC Info (PHARMACY MONITORING -- do not chart) 1 each PRN DAILY PRN MC SEE COMMENTS ; Start 07/22/19 at 07:30; Stop 07/24/19 at 12:45; Status DC Sodium Chloride 90 meq/Potassium Chloride 15 meq/ Potassium Phosphate 10 mmol/ Magnesium Sulfate 8 meq/Calcium Gluconate 15 meq/ Multivitamins 10 ml/Chromium/ Copper/Manganese/ Seleni/Zn 0.5 ml/ Insulin Human Regular 25 unit/ Total Parenteral Nutrition/Amino Acids/Dextrose/ Fat Emulsion Intravenous 1,400 ml @ 58.333 mls/ hr TPN CONT IV Last administered on 07/22/19at 22:19; Start 07/22/19 at 22:00; Stop 07/23/19 at 21:59; Status DC Heparin Sodium (Porcine) (Heparin Sodium) 5,000 unit Q12HR SQ Last administered on 07/31/19at 21:54; Start 07/22/19 at 21:00 Ondansetron HCl (Zofran) 4 mg PRN Q6HRS PRN IV NAUSEA/VOMITING; Start 07/25/19 at 07:00; Stop 07/26/19 at 06:59; Status DC Fentanyl Citrate (Fentanyl 2ml Vial) 25 mcg PRN Q5MIN PRN IV MILD PAIN 1-3; Start 07/25/19 at 07:00; Stop 07/26/19 at 06:59; Status DC Fentanyl Citrate (Fentanyl 2ml Vial) 50 mcg PRN Q5MIN PRN IV MODERATE TO SEVERE PAIN; Start 07/25/19 at 07:00; Stop 07/26/19 at 06:59; Status DC Ringer's Solution 1,000 ml @ 30 mls/hr Q24H IV ; Start 07/25/19 at 07:00; Stop 07/25/19 at 18:59; Status DC Lidocaine HCl (Xylocaine-Mpf 1% 2ml Vial) 2 ml PRN 1X PRN ID PRIOR TO IV START; Start 07/25/19 at 07:00; Stop 07/26/19 at 06:59; Status DC Prochlorperazine Edisylate (Compazine) 5 mg PACU PRN PRN IV NAUSEA, MRX1; Start 07/25/19 at 07:00; Stop 07/26/19 at 06:59; Status DC Sodium Chloride 1,000 ml @ 1,000 mls/hr Q1H PRN IV hypotension; Start 07/23/19 at 09:10; Stop 07/23/19 at 15:09; Status DC Albumin Human 200 ml @ 200 mls/hr 1X PRN PRN IV Hypotension Last administered on 07/23/19at 10:10; Start 07/23/19 at 09:15; Stop 07/23/19 at 15:14; Status DC Sodium Chloride 1,000 ml @ 400 mls/hr Q2H30M PRN IV PATENCY; Start 07/23/19 at 09:10; Stop 07/23/19 at 21:09; Status DC Info (PHARMACY MONITORING -- do not chart) 1 each PRN DAILY PRN MC SEE COMMENTS; Start 07/23/19 at 09:15; Stop 07/24/19 at 12:45; Status DC Info (PHARMACY MONITORING -- do not chart) 1 each PRN DAILY PRN MC SEE COMMENTS; Start 07/23/19 at 09:15; Stop 07/24/19 at 12:45; Status DC Sodium Chloride 90 meq/Potassium Chloride 15 meq/ Potassium Phosphate 10 mmol/ Magnesium Sulfate 8 meq/Calcium Gluconate 15 meq/ Multivitamins 10 ml/Chromium/ Copper/Manganese/ Seleni/Zn 0.5 ml/ Insulin Human Regular 25 unit/ Total Parenteral Nutrition/Amino Acids/Dextrose/ Fat Emulsion Intravenous 1,400 ml @ 58.333 mls/ hr TPN CONT IV Last administered on 07/23/19at 22:10; Start 07/23/19 at 22:00; Stop 07/24/19 at 21:59; Status DC Magnesium Sulfate 50 ml @ 25 mls/hr PRN DAILY PRN IV for Mag < 1.7 on am labs; Start 07/24/19 at 09:15 Sodium Chloride 90 meq/Potassium Chloride 15 meq/ Potassium Phosphate 10 mmol/ Magnesium Sulfate 8 meq/Calcium Gluconate 15 meq/ Multivitamins 10 ml/Chromium/ Copper/Manganese/ Seleni/Zn 0.5 ml/ Insulin Human Regular 25 unit/ Total Parenteral Nutrition/Amino Acids/Dextrose/ Fat Emulsion Intravenous 1,400 ml @ 58.333 mls/ hr TPN CONT IV Last administered on 07/24/19at 21:20; Start 07/24/19 at 22:00; Stop 07/25/19 at 21:59; Status DC Sodium Chloride 1,000 ml @ 1,000 mls/hr Q1H PRN IV hypotension; Start 07/24/19 at 12:23; Stop 07/24/19 at 18:22; Status DC Albumin Human 200 ml @ 200 mls/hr 1X ONCE IV Last administered on 07/24/19at 13:34; Start 07/24/19 at 12:30; Stop 07/24/19 at 13:29; Status DC Diphenhydramine HCl (Benadryl) 25 mg 1X PRN PRN IV ITCHING; Start 07/24/19 at 12:30; Stop 07/25/19 at 12:29; Status DC Diphenhydramine HCl (Benadryl) 25 mg 1X PRN PRN IV ITCHING; Start 07/24/19 at 12:30; Stop 07/25/19 at 12:29; Status DC Info (PHARMACY MONITORING -- do not chart) 1 each PRN DAILY PRN MC SEE COMMENTS; Start 07/24/19 at 12:30; Status Cancel Bupivacaine HCl/ Epinephrine Bitart (Sensorcain-Epi 0.5%-1:[id number] Mpf) 30 ml STK-MED ONCE .ROUTE Last administered on 07/25/19at 11:44; Start 07/25/19 at 11:00 ; Stop 07/25/19 at 11:01; Status DC Cellulose (Surgicel Fibrillar 1x2) 1 each STK-MED ONCE .ROUTE ; Start 07/25/19 at 11:00; Stop 07/25/19 at 11:01; Status DC Sodium Chloride 90 meq/Potassium Chloride 15 meq/ Potassium Phosphate 10 mmol/ Magnesium Sulfate 12 meq/Calcium Gluconate 15 meq/ Multivitamins 10 ml/Chromium/ Copper/Manganese/ Seleni/Zn 0.5 ml/ Insulin Human Regular 25 unit/ Total Parenteral Nutrition/Amino Acids/Dextrose/ Fat Emulsion Intravenous 1,400 ml @ 58.333 mls/ hr TPN CONT IV Last administered on 07/25/19at 22:24; Start 07/25/19 at 22:00; Stop 07/26/19 at 21:59; Status DC Propofol 20 ml @ As Directed STK-MED ONCE IV ; Start 07/25/19 at 11:07; Stop 07/25/19 at 11:07; Status DC Cellulose (Surgicel Hemostat 4x8) 1 each STK-MED ONCE .ROUTE Last administered on 07/25/19at 11:44; Start 07/25/19 at 11:55; Stop 07/25/19 at 11:56; Status DC Sevoflurane (Ultane) 60 ml STK-MED ONCE IH ; Start 07/25/19 at 12:46; Stop 07/25/19 at 12:46; Status DC Sodium Chloride 1,000 ml @ 1,000 mls/hr Q1H PRN IV hypotension; Start 07/25/19 at 13:51; Stop 07/25/19 at 19:50; Status DC Albumin Human 200 ml @ 200 mls/hr 1X PRN PRN IV Hypotension Last administered on 07/25/19at 14:51; Start 07/25/19 at 14:00; Stop 07/25/19 at 19:59; Status DC Diphenhydramine HCl (Benadryl) 25 mg 1X PRN PRN IV ITCHING; Start 07/25/19 at 14:00; Stop 07/26/19 at 13:59; Status DC Diphenhydramine HCl (Benadryl) 25 mg 1X PRN PRN IV ITCHING; Start 07/25/19 at 14:00; Stop 07/26/19 at 13:59; Status DC Sodium Chloride 1,000 ml @ 400 mls/hr Q2H30M PRN IV PATENCY; Start 07/25/19 at 13:51; Stop 07/26/19 at 01:50; Status DC Info (PHARMACY MONITORING -- do not chart) 1 each PRN DAILY PRN MC SEE COMMENTS; Start 07/25/19 at 14:00; Stop 07/28/19 at 08:16; Status DC Heparin Sodium (Porcine) (Hep Lock Adult) 500 unit STK-MED ONCE IVP ; Start 07/26/19 at 09:29; Stop 07/26/19 at 09:30; Status DC Sodium Chloride 1,000 ml @ 1,000 mls/hr Q1H PRN IV hypotension; Start 07/26/19 at 10:43; Stop 07/26/19 at 16:42; Status DC Sodium Chloride 1,000 ml @ 400 mls/hr Q2H30M PRN IV PATENCY; Start 07/26/19 at 10:43; Stop 07/26/19 at 22:42; Status DC Info (PHARMACY MONITORING -- do not chart) 1 each PRN DAILY PRN MC SEE COMMENTS; Start 07/26/19 at 10:45; Status UNV Info (PHARMACY MONITORING -- do not chart) 1 each PRN DAILY PRN MC SEE COMME NTS; Start 07/26/19 at 10:45; Status UNV Sodium Chloride 90 meq/Potassium Chloride 15 meq/ Magnesium Sulfate 12 meq/Calcium Gluconate 15 meq/ Multivitamins 10 ml/Chromium/ Copper/Manganese/ Seleni/Zn 0.5 ml/ Insulin Human Regular 25 unit/ Total Parenteral Nutrition/Amino Acids/Dextrose/ Fat Emulsion Intravenous 1,400 ml @ 58.333 mls/ hr TPN CONT IV Last administered on 07/26/19at 22:13; Start 07/26/19 at 22:00; Stop 07/27/19 at 21:59; Status DC Sodium Chloride 1,000 ml @ 1,000 mls/hr Q1H PRN IV hypotension; Start 07/27/19 at 07:50; Stop 07/27/19 at 13:49; Status DC Albumin Human 200 ml @ 200 mls/hr 1X ONCE IV ; Start 07/27/19 at 08:00; Stop 07/27/19 at 08:53; Status DC Diphenhydramine HCl (Benadryl) 25 mg 1X PRN PRN IV ITCHING; Start 07/27/19 at 08:00; Stop 07/28/19 at 07:59; Status DC Diphenhydramine HCl (Benadryl) 25 mg 1X PRN PRN IV ITCHING; Start 07/27/19 at 08:00; Stop 07/28/19 at 07:59; Status DC Info (PHARMACY MONITORING -- do not chart) 1 each PRN DAILY PRN MC SEE COMMENTS; Start 07/27/19 at 08:00; Stop 07/28/19 at 08:16; Status DC Albumin Human 50 ml @ 50 mls/hr 1X ONCE IV ; Start 07/27/19 at 08:53; Stop 07/27/19 at 08:56; Status DC Albumin Human 200 ml @ 50 mls/hr PRN 1X PRN IV HYPOTENSION Last administered on 07/27/19at 09:09; Start 07/27/19 at 09:00 Meropenem 500 mg/ Sodium Chloride 50 ml @ 100 mls/hr Q12H IV Last administered on 07/31/19at 21:48; Start 07/27/19 at 10:00 Sodium Chloride 90 meq/Magnesium Sulfate 12 meq/ Calcium Gluconate 15 meq/ Multivitamins 10 ml/Chromium/ Copper/Manganese/ Seleni/Zn 0.5 ml/ Insulin Human Regular 25 unit/ Total Parenteral Nutrition/Amino Acids/Dextrose/ Fat Emulsion Intravenous 1,400 ml @ 58.333 mls/ hr TPN CONT IV Last administered on 07/27/19at 21:41; Start 07/27/19 at 22:00; Stop 07/28/19 at 21:59; Status DC Sodium Chloride 1,000 ml @ 1,000 mls/hr Q1H PRN IV hypotension; Start 07/28/19 at 07:58; Stop 07/28/19 at 13:57; Status DC Albumin Human 200 ml @ 200 mls/hr 1X PRN PRN IV Hypotension Last administered on 07/28/19at 09:30; Start 07/28/19 at 08:00; Stop 07/28/19 at 13:59; Status DC Sodium Chloride 1,000 ml @ 400 mls/hr Q2H30M PRN IV PATENCY; Start 07/28/19 at 07:58; Stop 07/28/19 at 19:57; Status DC Info (PHARMACY MONITORING -- do not chart) 1 each PRN DAILY PRN MC SEE COMMENTS; Start 07/28/19 at 08:00 Info (PHARMACY MONITORING -- do not chart) 1 each PRN DAILY PRN MC SEE COMMENTS; Start 07/28/19 at 08:15; Status UNV Sodium Chloride 90 meq/Potassium Phosphate 5 mmol/ Magnesium Sulfate 12 meq/Calcium Gluconate 15 meq/ Multivitamins 10 ml/Chromium/ Copper/Manganese/ Seleni/Zn 0.5 ml/ Insulin Human Regular 30 unit/ Total Parenteral Nutrition/Amino Acids/Dextrose/ Fat Emulsion Intravenous 1,400 ml @ 58.333 mls/ hr TPN CONT IV Last administered on 07/28/19at 22:08; Start 07/28/19 at 22:00; Stop 07/29/19 at 21:59; Status DC Linezolid/Dextrose 300 ml @ 300 mls/hr Q12HR IV Last administered on 07/31/19at 21:48; Start 07/29/19 at 11:00 Sodium Chloride 90 meq/Potassium Phosphate 15 mmol/ Magnesium Sulfate 12 meq/Calcium Gluconate 15 meq/ Multivitamins 10 ml/Chromium/ Copper/Manganese/ Seleni/Zn 0.5 ml/ Insulin Human Regular 30 unit/ Total Parenteral Nutrition/Amino Acids/Dextrose/ Fat Emulsion Intravenous 1,400 ml @ 58.333 mls/ hr TPN CONT IV Last administered on 07/29/19at 21:49; Start 07/29/19 at 22:00; Stop 07/30/19 at 21:59; Status DC Sodium Chloride 90 meq/Potassium Phosphate 15 mmol/ Magnesium Sulfate 12 meq/Calcium Gluconate 15 meq/ Multivitamins 10 ml/Chromium/ Copper/Manganese/ Seleni/Zn 0.5 ml/ Insulin Human Regular 40 unit/ Total Parenteral Nutrition/Amino Acids/Dextrose/ Fat Emulsion Intravenous 1,400 ml @ 58.333 mls/ hr TPN CONT IV Last administered on 07/30/19at 21:21; Start 07/30/19 at 22:00; Stop 07/31/19 at 21:59; Status DC Sodium Chloride 1,000 ml @ 1,000 mls/hr Q1H PRN IV hypotension; Start 07/30/19 at 13:26; Stop 07/30/19 at 19:25; Status DC Albumin Human 200 ml @ 200 mls/hr 1X PRN PRN IV Hypotension Last administered on 07/30/19at 15:00; Start 07/30/19 at 13:30; Stop 07/30/19 at 19:29; Status DC Sodium Chloride (Normal Saline Flush) 10 ml 1X PRN PRN IV AP catheter pack; Start 07/30/19 at 13:30; Stop 07/31/19 at 13:29; Status DC Sodium Chloride (Normal Saline Flush) 10 ml 1X PRN PRN IV 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; Start 07/30/19 at 13:30; Stop 07/31/19 at 13:29; Status DC Sodium Chloride 1,000 ml @ 400 mls/hr Q2H30M PRN IV PATENCY; Start 07/30/19 at 13:26; Stop 07/31/19 at 01:25; Status DC Info (PHARMACY MONITORING -- do not chart) 1 each PRN DAILY PRN MC SEE COMMENTS; Start 07/30/19 at 13:30; Stop 07/30/19 at 13:33; Status DC Info (PHARMACY MONITORING -- do not chart) 1 each PRN DAILY PRN MC SEE COMMENTS; Start 07/30/19 at 13:30; Stop 07/30/19 at 13:34; Status DC Sodium Chloride 90 meq/Potassium Phosphate 19 mmol/ Magnesium Sulfate 12 meq/Calcium Gluconate 15 meq/ Multivitamins 10 ml/Chromium/ Copper/Manganese/ Seleni/Zn 0.5 ml/ Insulin Human Regular 40 unit/ Total Parenteral Nutrition/Amino Acids/Dextrose/ Fat Emulsion Intravenous 1,400 ml @ 58.333 mls/ hr TPN CONT IV Last administered on 07/31/19at 21:54; Start 07/31/19 at 22:00; Stop 08/01/19 at 21:59 Active Scripts Active Reported Bisoprolol Fumarate 5 Mg Tablet 10 Mg PO DAILY Vitals/I & O Vital Sign - Last 24 Hours 07/31/19 07/31/19 07/31/19 07/31/19 08:32 09:00 10:00 11:00 Temp 99.1 99.1 Pulse 112 112 104 Resp 22 32 25 B/P (MAP) 108/56 (73) 121/67 (85) 108/57 (74) Pulse Ox 99 99 100 98 O2 Delivery Ventilator Ventilator Ventilator Ventilator 07/31/19 07/31/19 07/31/19 07/31/19 11:48 12:00 12:00 13:00 Temp 98.8 98.8 Pulse 106 117 Resp 21 22 B/P (MAP) 116/64 (81) 118/68 (85) Pulse Ox 98 98 100 O2 Delivery Ventilator Ventilator Mechanical Ventilator Ventilator 07/31/19 07/31/19 07/31/19 07/31/19 13:42 14:00 15:00 15:27 Pulse 112 98 Resp 22 22 B/P (MAP) 132/78 (96) 108/61 (77) Pulse Ox 99 100 100 98 O2 Delivery Ventilator Ventilator Ventilator Ventilator 07/31/19 07/31/19 07/31/19 07/31/19 16:00 16:00 17:00 17:02 Temp 100.0 100.0 Pulse 120 126 Resp 22 23 B/P (MAP) 113/74 (87) 131/69 (89) Pulse Ox 100 100 100 O2 Delivery Ventilator Mechanical Ventilator Ventilator Ventilator 07/31/19 07/31/19 07/31/19 07/31/19 17:32 18:00 18:03 19:00 Pulse 100 112 Resp 21 22 18 B/P (MAP) 133/80 (97) 90/55 (67) Pulse Ox 100 100 100 99 O2 Delivery Ventilator Ventilator Ventilator Ventilator 07/31/19 07/31/19 07/31/19 07/31/19 20:00 20:00 20:00 21:00 Temp 99.5 99.5 Pulse 113 120 Resp 18 18 B/P (MAP) 129/81 (97) 142/73 (96) Pulse Ox 99 100 98 O2 Delivery Ventilator Mechanical Ventilator Ventilator 07/31/19 07/31/19 07/31/19 08/01/19 22:00 23:00 23:45 00:00 Temp 99.4 99.4 Pulse 130 98 128 Resp 18 18 18 B/P (MAP) 128/62 (84) 97/50 (66) 154/97 (116) Pulse Ox 99 98 100 100 O2 Delivery Ventilator Ventilator Ventilator Ventilator 08/01/19 08/01/19 08/01/19 08/01/19 00:00 00:14 00:51 01:00 Pulse 115 Resp 18 18 18 B/P (MAP) 140/66 (90) Pulse Ox 100 100 100 O2 Delivery Mechanical Ventilator Ventilator Ventilator Ventilator 08/01/19 08/01/19 08/01/19 08/01/19 02:00 03:00 04:00 04:00 Temp 98.8 98.8 Pulse 124 88 125 Resp 18 18 18 B/P (MAP) 153/87 (109) 96/51 (66) 106/55 (72) Pulse Ox 98 98 100 O2 Delivery Ventilator Ventilator Ventilator Mechanical Ventilator 08/01/19 08/01/19 08/01/19 08/01/19 04:30 05:00 06:00 07:00 Temp 98.3 98.3 Pulse 110 86 94 Resp 18 18 18 B/P (MAP) 122/64 (83) 113/71 (85) 93/53 (66) Pulse Ox 100 99 99 99 O2 Delivery Ventilator Ventilator Ventilator Ventilator 08/01/19 08/01/19 07:09 07:54 Resp 18 Pulse Ox 99 O2 Delivery Ventilator Mechanical Ventilator Intake and Output 07/31/19 07/31/19 08/01/19 15:00 23:00 07:00 Intake Total 1296 ml 1433.0 ml Output Total 85 ml 620 ml 261 ml Balance -85 ml 676 ml 1172.0 ml Hemodynamically unstable?: No Is patient in severe pain?: No Is NPO status required?: Yes DAVIN LANDEROS MD Aug 01, 2019 08:11
[2019-08-01] MEDS: HEPARIN for SUB-Q USE 5,000 UNIT/ML VIAL. SQ SCH ×2 (08:14→21:55)
[2019-08-01] MEDS: MINERAL OIL/PETROLATUM,WHITE OPHTH OINT 3.5GM TUBE. OU PRN (08:19)
--- NOTE | 2019-08-01 08:52 | PDOC ---
PROGRESS NOTES Assessment Problems Medical Problems: (1) Acute pancreatitis Status: Acute (2) Cholelithiasis Status: Acute Respiratory failure. Seizure. Metabolic encephalopathy. Fever 102.7 degree, recurrent fever noted. Metabolic acidosis. Diffuse pulmonary infiltrate. Pleural effusion. Pancreatitis, necrotizing. Gallstone. Leukocytosis. Lymphopenia. Electrolytes imbalances. Hyperglycemia. DM. HTN. HLD. Anemia. Abnormal CXR. Obesity. Plan Keppra if has further seizures. Treat medical diseases. Subjective none Objective Vital Signs Date Time Temp Pulse Resp B/P (MAP) Pulse Ox O2 Delivery O2 Flow Rate FiO2 08/01/19 08:00 122 28 125/71 (89) 100 Ventilator 08/01/19 07:00 98.3 98.3 Intake and Output 08/01/19 07:00 Intake Total 2729.0 ml Output Total 966 ml Balance 1763.0 ml Intake Oral 0 ml IV Total 2729.0 ml Output Urine Total 366 ml Stool Total 100 ml Gastric Drainage Total 500 ml PHYSICAL EXAM Alert. Tracheostomy in place. Tracks with her eyes, moves extremities to commands PERRL. EOMI. CN: no focal findings. Muscle tone: normal. Muscle strength: Moves all extremities, no better than 2/5 strength DTR: 1+ Plantar reflex: Silent Gait: not examined in bed. Sensory exam: no abnormal findings. No cerebellar signs elicited. Review of Relevant I have reviewed the following items kolby (where applicable) has been applied. Labs Laboratory Tests Test 07/30/19 15:33 07/30/19 17:30 07/31/19 00:08 07/31/19 06:00 Glucose (Fingerstick) 214 mg/dL (70-99) 208 mg/dL (70-99) 172 mg/dL (70-99) Hemoglobin A1c 5.4 % (4.8-5.6) White Blood Count 6.6 x10^3/uL (4.0-11.0) Red Blood Count 2.09 x10^6/uL (3.50-5.40) Hemoglobin 6.8 g/dL (12.0-15.5) Hematocrit 21.0 % (36.0-47.0) Mean Corpuscular Volume 100 fL (79-100) Mean Corpuscular Hemoglobin 33 pg (25-35) Mean Corpuscular Hemoglobin Concent 33 g/dL (31-37) Red Cell Distribution Width 22.2 % (11.5-14.5) Platelet Count 287 x10^3/uL (140-400) Neutrophils (%) (Auto) 74 % (31-73) Lymphocytes (%) (Auto) 10 % (24-48) Monocytes (%) (Auto) 11 % (0-9) Eosinophils (%) (Auto) 4 % (0-3) Basophils (%) (Auto) 1 % (0-3) Neutrophils # (Auto) 4.9 x10^3/uL (1.8-7.7) Lymphocytes # (Auto) 0.6 x10^3/uL (1.0-4.8) Monocytes # (Auto) 0.7 x10^3/uL (0.0-1.1) Eosinophils # (Auto) 0.3 x10^3/uL (0.0-0.7) Basophils # (Auto) 0.0 x10^3/uL (0.0-0.2) Sodium Level 135 mmol/L (136-145) Potassium Level 3.6 mmol/L (3.5-5.1) Chloride Level 99 mmol/L (98-107) Carbon Dioxide Level 29 mmol/L (21-32) Anion Gap 7 (6-14) Blood Urea Nitrogen 56 mg/dL (7-20) Creatinine 1.9 mg/dL (0.6-1.0) Estimated GFR (Cockcroft-Gault) 28.1 Glucose Level 174 mg/dL (70-99) Calcium Level 8.9 mg/dL (8.5-10.1) Phosphorus Level 2.9 mg/dL (2.6-4.7) Albumin 2.9 g/dL (3.4-5.0) Test 07/31/19 08:00 07/31/19 12:00 07/31/19 12:42 07/31/19 17:53 O2 Saturation 97 % (92-99) Arterial Blood pH 7.47 (7.35-7.45) Arterial Blood pCO2 at Patient Temp 34 mmHg (35-46) Arterial Blood pO2 at Patient Temp 95 mmHg (75-108) Arterial Blood HCO3 24 mmol/L (21-28) Arterial Blood Base Excess 1 mmol/L (-3-3) FiO2 35 Urine Collection Type Unknown Urine Color Brown Urine Clarity Cloudy Urine pH 5.0 (<5.0-8.0) Urine Specific [place] >=1.030 (1.000-1.030) Urine Protein 100 mg/dL (NEG-TRACE) Urine Glucose (UA) 100 mg/dL (NEG) Urine Ketones (Stick) Trace mg/dL (NEG) Urine Blood Large (NEG) Urine Nitrite Positive (NEG) Urine Bilirubin Small (NEG) Urine Urobilinogen Dipstick 1.0 mg/dL (0.2 mg/dL) Urine Leukocyte Esterase Small (NEG) Urine RBC >40 /HPF (0-2) Urine WBC 1-4 /HPF (0-4) Urine Squamous Epithelial Cells Occ /LPF Urine Transitional Epithelial Cells Few /LPF Urine Amorphous Sediment Present /HPF Urine Bacteria Few /HPF (0-FEW) Urine Hyaline Casts Few /HPF Urine Mucus Slight /LPF Glucose (Fingerstick) 223 mg/dL (70-99) 166 mg/dL (70-99) Test 08/01/19 00:02 08/01/19 06:09 08/01/19 06:10 Glucose (Fingerstick) 201 mg/dL (70-99) 175 mg/dL (70-99) White Blood Count 5.3 x10^3/uL (4.0-11.0) Red Blood Count 2.48 x10^6/uL (3.50-5.40) Hemoglobin 8.0 g/dL (12.0-15.5) Hematocrit 24.3 % (36.0-47.0) Mean Corpuscular Volume 98 fL (79-100) Mean Corpuscular Hemoglobin 32 pg (25-35) Mean Corpuscular Hemoglobin Concent 33 g/dL (31-37) Red Cell Distribution Width 19.3 % (11.5-14.5) Platelet Count 318 x10^3/uL (140-400) Neutrophils (%) (Auto) 76 % (31-73) Lymphocytes (%) (Auto) 10 % (24-48) Monocytes (%) (Auto) 12 % (0-9) Eosinophils (%) (Auto) 2 % (0-3) Basophils (%) (Auto) 0 % (0-3) Neutrophils # (Auto) 4.0 x10^3/uL (1.8-7.7) Lymphocytes # (Auto) 0.5 x10^3/uL (1.0-4.8) Monocytes # (Auto) 0.6 x10^3/uL (0.0-1.1) Eosinophils # (Auto) 0.1 x10^3/uL (0.0-0.7) Basophils # (Auto) 0.0 x10^3/uL (0.0-0.2) Sodium Level 135 mmol/L (136-145) Potassium Level 3.6 mmol/L (3.5-5.1) Chloride Level 98 mmol/L (98-107) Carbon Dioxide Level 23 mmol/L (21-32) Anion Gap 14 (6-14) Blood Urea Nitrogen 80 mg/dL (7-20) Creatinine 2.1 mg/dL (0.6-1.0) Estimated GFR (Cockcroft-Gault) 25.0 Glucose Level 167 mg/dL (70-99) Calcium Level 9.0 mg/dL (8.5-10.1) Magnesium Level 2.2 mg/dL (1.8-2.4) Triglycerides Level 245 mg/dL (0-150) Laboratory Tests Test 07/31/19 12:00 07/31/19 12:42 07/31/19 17:53 08/01/19 00:02 Urine Collection Type Unknown Urine Color Brown Urine Clarity Cloudy Urine pH 5.0 (<5.0-8.0) Urine Specific [place] >=1.030 (1.000-1.030) Urine Protein 100 mg/dL (NEG-TRACE) Urine Glucose (UA) 100 mg/dL (NEG) Urine Ketones (Stick) Trace mg/dL (NEG) Urine Blood Large (NEG) Urine Nitrite Positive (NEG) Urine Bilirubin Small (NEG) Urine Urobilinogen Dipstick 1.0 mg/dL (0.2 mg/dL) Urine Leukocyte Esterase Small (NEG) Urine RBC >40 /HPF (0-2) Urine WBC 1-4 /HPF (0-4) Urine Squamous Epithelial Cells Occ /LPF Urine Transitional Epithelial Cells Few /LPF Urine Amorphous Sediment Present /HPF Urine Bacteria Few /HPF (0-FEW) Urine Hyaline Casts Few /HPF Urine Mucus Slight /LPF Glucose (Fingerstick) 223 mg/dL (70-99) 166 mg/dL (70-99) 201 mg/dL (70-99) Test 08/01/19 06:09 08/01/19 06:10 Glucose (Fingerstick) 175 mg/dL (70-99) White Blood Count 5.3 x10^3/uL (4.0-11.0) Red Blood Count 2.48 x10^6/uL (3.50-5.40) Hemoglobin 8.0 g/dL (12.0-15.5) Hematocrit 24.3 % (36.0-47.0) Mean Corpuscular Volume 98 fL (79-100) Mean Corpuscular Hemoglobin 32 pg (25-35) Mean Corpuscular Hemoglobin Concent 33 g/dL (31-37) Red Cell Distribution Width 19.3 % (11.5-14.5) Platelet Count 318 x10^3/uL (140-400) Neutrophils (%) (Auto) 76 % (31-73) Lymphocytes (%) (Auto) 10 % (24-48) Monocytes (%) (Auto) 12 % (0-9) Eosinophils (%) (Auto) 2 % (0-3) Basophils (%) (Auto) 0 % (0-3) Neutrophils # (Auto) 4.0 x10^3/uL (1.8-7.7) Lymphocytes # (Auto) 0.5 x10^3/uL (1.0-4.8) Monocytes # (Auto) 0.6 x10^3/uL (0.0-1.1) Eosinophils # (Auto) 0.1 x10^3/uL (0.0-0.7) Basophils # (Auto) 0.0 x10^3/uL (0.0-0.2) Sodium Level 135 mmol/L (136-145) Potassium Level 3.6 mmol/L (3.5-5.1) Chloride Level 98 mmol/L (98-107) Carbon Dioxide Level 23 mmol/L (21-32) Anion Gap 14 (6-14) Blood Urea Nitrogen 80 mg/dL (7-20) Creatinine 2.1 mg/dL (0.6-1.0) Estimated GFR (Cockcroft-Gault) 25.0 Glucose Level 167 mg/dL (70-99) Calcium Level 9.0 mg/dL (8.5-10.1) Magnesium Level 2.2 mg/dL (1.8-2.4) Triglycerides Level 245 mg/dL (0-150) Microbiology 07/29/19 Blood Culture - Preliminary, Resulted NO GROWTH AFTER 2 DAYS 07/23/19 Urine Culture - Final, Complete 07/23/19 Urine Culture Result 1 (ALEXANDRA) - Final, Complete Medications Current Medications Sodium Chloride 1,000 ml @ 1,000 mls/hr Q1H IV Last administered on 07/04/19at 03:00; Start 07/04/19 at 03:00; Stop 07/04/19 at 03:59; Status DC Ondansetron HCl (Zofran) 4 mg 1X ONCE IVP Last administered on 07/04/19at 03:27; Start 07/04/19 at 03:00; Stop 07/04/19 at 03:01; Status DC Morphine Sulfate (Morphine Sulfate) 4 mg 1X ONCE IV ; Start 07/04/19 at 03:00; Stop 07/04/19 at 03:01; Status Cancel Ketorolac Tromethamine (Toradol 30mg Vial) 30 mg 1X ONCE IV Last administered on 07/04/19at 02:54; Start 07/04/19 at 03:00; Stop 07/04/19 at 03:01; Status DC Fentanyl Citrate (Fentanyl 2ml Vial) 25 mcg 1X ONCE IVP Last administered on 07/04/19at 03:23; Start 07/04/19 at 03:30; Stop 07/04/19 at 03:31; Status DC Fentanyl Citrate (Fentanyl 2ml Vial) 100 mcg STK-MED ONCE .ROUTE ; Start 07/04/19 at 03:18; Stop 07/04/19 at 03:18; Status DC Iohexol (Omnipaque 350 Mg/ml) 90 ml 1X ONCE IV Last administered on 07/04/19at 03:25; Start 07/04/19 at 03:30; Stop 07/04/19 at 03:31; Status DC Info (CONTRAST GIVEN -- Rx MONITORING) 1 each PRN DAILY PRN MC SEE COMMENTS; Start 07/04/19 at 03:30; Stop 07/06/19 at 03:29; Status DC Hydromorphone HCl (Dilaudid) 0.5 mg 1X ONCE IV Last administered on 07/04/19at 03:55; Start 07/04/19 at 04:30; Stop 07/04/19 at 04:32; Status DC Ondansetron HCl (Zofran) 4 mg PRN Q8HRS PRN IV NAUSEA/VOMITING 1ST CHOICE; Start 07/04/19 at 05:00; Stop 07/04/19 at 09:27; Status DC Morphine Sulfate (Morphine Sulfate) 2 mg PRN Q2HR PRN IV SEVERE PAIN 7-10 Last administered on 07/05/19at 12:26; Start 07/04/19 at 05:00; Stop 07/05/19 at 14:15; Status DC Sodium Chloride 1,000 ml @ 125 mls/hr Q8H IV Last administered on 07/04/19at 20:56; Start 07/04/19 at 05:00; Stop 07/05/19 at 04:59; Status DC Hydromorphone HCl (Dilaudid) 0.5 mg PRN Q3HRS PRN IV SEVERE PAIN 7-10 Last administered on 07/05/19at 10:06; Start 07/04/19 at 05:00; Stop 07/05/19 at 12:01; Status DC Piperacillin Sod/ Tazobactam Sod 4.5 gm/Sodium Chloride 100 ml @ 200 mls/hr 1X ONCE IV Last administered on 07/04/19at 05:44; Start 07/04/19 at 06:00; Stop 07/04/19 at 06:29; Status DC Ondansetron HCl (Zofran) 4 mg PRN Q4HRS PRN IV NAUSEA/VOMITING 1ST CHOICE Last administered on 07/31/19at 09:56; Start 07/04/19 at 09:30 Insulin Human Lispro (HumaLOG) 0-9 UNITS Q6HRS SQ Last administered on 08/01/19at 06:12; Start 07/04/19 at 09:30 Dextrose (Dextrose 50%-Water Syringe) 12.5 gm PRN Q15MIN PRN IV SEE COMMENTS; Start 07/04/19 at 09:30 Pantoprazole Sodium (PROTONIX VIAL for IV PUSH) 40 mg DAILYAC IVP Last admini stered on 08/01/19at 08:12; Start 07/04/19 at 11:30 Prochlorperazine Edisylate (Compazine) 10 mg PRN Q6HRS PRN IV NAUSEA/VOMITING, 2nd CHOICE Last administered on 07/05/19at 00:42; Start 07/04/19 at 17:45 Atenolol (Tenormin) 100 mg DAILY PO ; Start 07/05/19 at 09:00; Stop 07/04/19 at 20:08; Status DC Metoprolol Tartrate (Lopressor Vial) 2.5 mg Q6HRS IVP Last administered on 07/05/19at 05:51; Start 07/04/19 at 20:15; Stop 07/05/19 at 10:02; Status DC Metoprolol Tartrate (Lopressor Vial) 5 mg Q6HRS IVP Last administered on 07/14/19at 00:12; Start 07/05/19 at 10:15; Stop 07/16/19 at 08:48; Status DC Hydromorphone HCl (Dilaudid) 1 mg PRN Q3HRS PRN IV SEVERE PAIN 7-10 Last administered on 07/11/19at 05:13; Start 07/05/19 at 12:00; Stop 07/19/19 at 00:25; Status DC Lidocaine HCl (Buffered Lidocaine 1%) 3 ml STK-MED ONCE .ROUTE ; Start 07/05/19 at 12:55; Stop 07/05/19 at 12:56; Status DC Albumin Human 500 ml @ 125 mls/hr 1X ONCE IV Last administered on 07/05/19at 14:33; Start 07/05/19 at 14:30; Stop 07/05/19 at 18:32; Status DC Norepinephrine Bitartrate 8 mg/ Dextrose 258 ml @ 17.299 mls/ hr CONT PRN IV PER PROTOCOL Last administered on 07/29/19at 13:31; Start 07/05/19 at 15:30 Sodium Chloride 1,000 ml @ 125 mls/hr Q8H IV Last administered on 07/05/19at 21:04; Start 07/05/19 at 16:00; Stop 07/06/19 at 02:42; Status DC Albumin Human 500 ml @ 125 mls/hr PRN BID PRN IV After every 2L NSS & BP < 90mm Last administered on 07/20/19at 14:21; Start 07/05/19 at 16:00 Iohexol (Omnipaque 300 Mg/ml) 60 ml 1X ONCE IV Last administered on 07/05/19at 17:20; Start 07/05/19 at 17:00; Stop 07/05/19 at 17:01; Status DC Info (CONTRAST GIVEN -- Rx MONITORING) 1 each PRN DAILY PRN MC SEE COMMENTS; Start 07/05/19 at 17:00; Stop 07/07/19 at 16:59; Status DC Meropenem 1 gm/ Sodium Chloride 100 ml @ 200 mls/hr Q8HRS IV Last administered on 07/06/19at 05:45; Start 07/05/19 at 20:00; Stop 07/06/19 at 08:48; Status DC Furosemide (Lasix) 40 mg 1X ONCE IVP Last administered on 07/05/19at 22:12; Start 07/05/19 at 22:30; Stop 07/05/19 at 22:31; Status DC Calcium Chloride 1000 mg/Sodium Chloride 110 ml @ 220 mls/hr 1X ONCE IV Last administered on 07/05/19at 22:11; Start 07/05/19 at 22:30; Stop 07/05/19 at 22:59; Status DC Albuterol Sulfate (Ventolin Neb Soln) 2.5 mg 1X ONCE NEB Last administered on 07/06/19at 00:56; Start 07/05/19 at 22:30; Stop 07/05/19 at 22:31; Status DC Insulin Human Regular (HumuLIN R VIAL) 5 unit 1X ONCE IV Last administered on 07/05/19at 22:14; Start 07/05/19 at 22:30; Stop 07/05/19 at 22:31; Status DC Magnesium Sulfate 50 ml @ 25 mls/hr 1X ONCE IV Last administered on 07/06/19at 02:57; Start 07/06/19 at 03:00; Stop 07/06/19 at 04:59; Status DC Calcium Gluconate 1000 mg/Sodium Chloride 110 ml @ 220 mls/hr 1X ONCE IV Last administered on 07/06/19at 02:46; Start 07/06/19 at 03:00; Stop 07/06/19 at 03:29; Status DC Sodium Chloride 1,000 ml @ 200 mls/hr Q5H IV Last administered on 07/06/19at 02:46; Start 07/06/19 at 03:00; Stop 07/06/19 at 10:21; Status DC Calcium Gluconate 1000 mg/Sodium Chloride 110 ml @ 220 mls/hr 1X ONCE IV Last administered on 07/06/19at 03:21; Start 07/06/19 at 03:30; Stop 07/06/19 at 03:59; Status DC Sodium Bicarbonate 50 meq/Sodium Chloride 1,050 ml @ 75 mls/hr Q14H IV Last administered on 07/10/19at 21:10; Start 07/06/19 at 07:30; Stop 07/11/19 at 10:28; Status DC Calcium Gluconate 2000 mg/Sodium Chloride 120 ml @ 220 mls/hr 1X ONCE IV Last administered on 07/06/19at 09:05; Start 07/06/19 at 07:30; Stop 07/06/19 at 08:02; Status DC Lidocaine HCl (Xylocaine-Mpf 1% 2ml Vial) 2 ml STK-MED ONCE .ROUTE ; Start 07/06/19 at 08:47; Stop 07/06/19 at 08:47; Status DC Meropenem 500 mg/ Sodium Chloride 50 ml @ 100 mls/hr Q12HR IV Last administered on 07/11/19at 21:01; Start 07/06/19 at 18:00; Stop 07/12/19 at 07:58; Status DC Lidocaine HCl (Buffered Lidocaine 1%) 3 ml STK-MED ONCE .ROUTE ; Start 07/06/19 at 09:46; Stop 07/06/19 at 09:46; Status DC Lidocaine HCl (Buffered Lidocaine 1%) 6 ml 1X ONCE INJ Last administered on 07/06/19at 10:26; Start 07/06/19 at 10:15; Stop 07/06/19 at 10:16; Status DC Info (Tpn Per Pharmacy) 1 each PRN DAILY PRN MC SEE COMMENTS Last administered on 07/31/19at 11:14; Start 07/06/19 at 12:00 Sodium Chloride 1,000 ml @ 1,000 mls/hr Q1H PRN IV hypotension; Start 07/06/19 at 12:07; Stop 07/06/19 at 18:06; Status DC Diphenhydramine HCl (Benadryl) 25 mg 1X PRN PRN IV ITCHING; Start 07/06/19 at 12:15; Stop 07/07/19 at 12:14; Status DC Diphenhydramine HCl (Benadryl) 25 mg 1X PRN PRN IV ITCHING; Start 07/06/19 at 12:15; Stop 07/07/19 at 12:14; Status DC Sodium Chloride 1,000 ml @ 400 mls/hr Q2H30M PRN IV PATENCY; Start 07/06/19 at 12:07; Stop 07/07/19 at 00:06; Status DC Info (PHARMACY MONITORING -- do not chart) 1 each PRN DAILY PRN MC SEE COMMENTS; Start 07/06/19 at 12:15; Stop 07/08/19 at 08:13; Status DC Sodium Chloride 90 meq/Calcium Gluconate 10 meq/ Multivitamins 10 ml/Chromium/ Copper/Manganese/ Seleni/Zn 1 ml/ Total Parenteral Nutrition/Amino Acids/Dextrose/ Fat Emulsion Intravenous 55.005 ml @ 2.292 mls/hr TPN CONT IV ; Start 07/06/19 at 22:00; Stop 07/06/19 at 12:33; Status DC Info (Tpn Per Pharmacy) 1 each PRN DAILY PRN MC SEE COMMENTS; Start 07/06/19 at 12:30; Status UNV Sodium Chloride 90 meq/Calcium Gluconate 10 meq/ Multivitamins 10 ml/Chromium/ Copper/Manganese/ Seleni/Zn 0.5 ml/ Total Parenteral Nutrition/Amino Acids/Dextrose/ Fat Emulsion Intravenous 1,512 ml @ 63 mls/hr TPN CONT IV Last administered on 07/06/19at 22:06; Start 07/06/19 at 22:00; Stop 07/07/19 at 21:59; Status DC Calcium Carbonate/ Glycine (Tums) 500 mg PRN AFTMEALHC PRN PO INDIGESTION; Start 07/06/19 at 17:45 Calcium Gluconate (Calcium Gluconate) 2,000 mg 1X ONCE IVP Last administered on 07/07/19at 02:19; Start 07/07/19 at 02:15; Stop 07/07/19 at 02:16; Status DC Calcium Chloride 3000 mg/Sodium Chloride 1,030 ml @ 50 mls/hr [id number] IV Last administered on 07/09/19at 02:17; Start 07/07/19 at 08:00; Stop 07/09/19 at 15:23; Status DC Lorazepam (Ativan Inj) 1 mg PRN Q4HRS PRN IVP ANXIETY / AGITATION Last administered on 07/11/19at 00:34; Start 07/07/19 at 09:00 Sodium Chloride 1,000 ml @ 1,000 mls/hr Q1H PRN IV hypotension; Start 07/07/19 at 08:56; Stop 07/07/19 at 14:55; Status DC Albumin Human 200 ml @ 200 mls/hr 1X PRN PRN IV Hypotension; Start 07/07/19 at 09:00; Stop 07/07/19 at 14:59; Status DC Diphenhydramine HCl (Benadryl) 25 mg 1X PRN PRN IV ITCHING; Start 07/07/19 at 09:00; Stop 07/08/19 at 08:59; Status DC Diphenhydramine HCl (Benadryl) 25 mg 1X PRN PRN IV ITCHING; Start 07/07/19 at 09:00; Stop 07/08/19 at 08:59; Status DC Sodium Chloride 1,000 ml @ 400 mls/hr Q2H30M PRN IV PATENCY; Start 07/07/19 at 08:56; Stop 07/07/19 at 20:55; Status DC Info (PHARMACY MONITORING -- do not chart) 1 each PRN DAILY PRN MC SEE COMMENTS; Start 07/07/19 at 09:00; Status UNV Info (PHARMACY MONITORING -- do not chart) 1 each PRN DAILY PRN MC SEE COMMENTS; Start 07/07/19 at 09:00; Stop 07/08/19 at 08:13; Status DC Digoxin (Lanoxin) 500 mcg 1X ONCE IV Last administered on 07/07/19at 10:04; Start 07/07/19 at 10:00; Stop 07/07/19 at 10:01; Status DC Digoxin (Lanoxin) 125 mcg 1X ONCE IV Last administered on 07/07/19at 17:10; Start 07/07/19 at 18:00; Stop 07/07/19 at 18:01; Status DC Magnesium Sulfate 100 ml @ 25 mls/hr 1X ONCE IV Last administered on 07/07/19at 12:48; Start 07/07/19 at 13:00; Stop 07/07/19 at 16:59; Status DC Sodium Chloride 90 meq/Magnesium Sulfate 10 meq/ Calcium Gluconate 20 meq/ Multivitamins 10 ml/Chromium/ Copper/Manganese/ Seleni/Zn 0.5 ml/ Total Parenteral Nutrition/Amino Acids/Dextrose/ Fat Emulsion Intravenous 1,512 ml @ 63 mls/hr TPN CONT IV Last administered on 07/07/19at 22:25; Start 07/07/19 at 22:00; Stop 07/08/19 at 21:59; Status DC Sodium Chloride 1,000 ml @ 1,000 mls/hr Q1H PRN IV hypotension; Start 07/08/19 at 08:05; Stop 07/08/19 at 14:04; Status DC Albumin Human 200 ml @ 200 mls/hr 1X ONCE IV Last administered on 07/08/19at 08:57; Start 07/08/19 at 08:15; Stop 07/08/19 at 09:14; Status DC Diphenhydramine HCl (Benadryl) 25 mg 1X PRN PRN IV ITCHING; Start 07/08/19 at 08:15; Stop 07/09/19 at 08:14; Status DC Diphenhydramine HCl (Benadryl) 25 mg 1X PRN PRN IV ITCHING; Start 07/08/19 at 08:15; Stop 07/09/19 at 08:14; Status DC Sodium Chloride 1,000 ml @ 400 mls/hr Q2H30M PRN IV PATENCY; Start 07/08/19 at 08:05; Stop 07/08/19 at 20:04; Status DC Info (PHARMACY MONITORING -- do not chart) 1 each PRN DAILY PRN MC SEE COMMENTS; Start 07/08/19 at 08:15; Stop 07/12/19 at 07:57; Status DC Sodium Chloride 90 meq/Potassium Chloride 15 meq/ Potassium Phosphate 10 mmol/ Magnesium Sulfate 10 meq/Calcium Gluconate 20 meq/ Multivitamins 10 ml/Chromium/ Copper/Manganese/ Seleni/Zn 0.5 ml/ Total Parenteral Nutrition/Amino Acids/Dextrose/ Fat Emulsion Intravenous 1,512 ml @ 63 mls/hr TPN CONT IV Last administered on 07/08/19at 21:01; Start 07/08/19 at 22:00; Stop 07/09/19 at 21:59; Status DC Potassium Chloride/Water 100 ml @ 100 mls/hr 1X ONCE IV Last administered on 07/08/19at 14:09; Start 07/08/19 at 14:00; Stop 07/08/19 at 14:59; Status DC Benzocaine (Hurricaine One) 1 spray 1X ONCE MM Last administered on 07/08/19at 16:38; Start 07/08/19 at 14:30; Stop 07/08/19 at 14:31; Status DC Lidocaine HCl (Glydo (Lidocaine) Jelly) 1 ramu 1X ONCE MM Last administered on 07/08/19at 16:38; Start 07/08/19 at 14:30; Stop 07/08/19 at 14:31; Status DC Linezolid/Dextrose 300 ml @ 300 mls/hr Q12HR IV Last administered on 07/14/19at 21:04; Start 07/08/19 at 20:00; Stop 07/15/19 at 07:50; Status DC Acetaminophen (Tylenol) 650 mg PRN Q6HRS PRN PO MILD PAIN / TEMP; Start 07/09/19 at 03:30; Stop 07/09/19 at 03:36; Status DC Acetaminophen (Tylenol) 650 mg PRN Q6HRS PRN PEG MILD PAIN / TEMP Last administered on 07/14/19at 07:35; Start 07/09/19 at 03:36 Sodium Chloride 1,000 ml @ 1,000 mls/hr Q1H PRN IV hypotension; Start 07/09/19 at 07:50; Stop 07/09/19 at 13:49; Status DC Albumin Human 200 ml @ 200 mls/hr 1X PRN PRN IV Hypotension; Start 07/09/19 at 08:00; Stop 07/09/19 at 13:59; Status DC Sodium Chloride (Normal Saline Flush) 10 ml 1X PRN PRN IV AP catheter pack; Start 07/09/19 at 08:00; Stop 07/10/19 at 07:59; Status DC Sodium Chloride (Normal Saline Flush) 10 ml 1X PRN PRN IV [employer] catheter pack; Start 07/09/19 at 08:00; Stop 07/10/19 at 07:59; Status DC Sodium Chloride 1,000 ml @ 400 mls/hr Q2H30M PRN IV PATENCY; Start 07/09/19 at 07:50; Stop 07/09/19 at 19:49; Status DC Info (PHARMACY MONITORING -- do not chart) 1 each PRN DAILY PRN MC SEE COMMENTS; Start 07/09/19 at 08:00; Status UNV Info (PHARMACY MONITORING -- do not chart) 1 each PRN DAILY PRN MC SEE COMMENTS; Start 07/09/19 at 08:00; Stop 07/11/19 at 08:25; Status DC Sodium Chloride 90 meq/Potassium Chloride 15 meq/ Potassium Phosphate 10 mmol/ Magnesium Sulfate 10 meq/Calcium Gluconate 20 meq/ Multivitamins 10 ml/Chromium/ Copper/Manganese/ Seleni/Zn 0.5 ml/ Total Parenteral Nutrition/Amino Acids/Dextrose/ Fat Emulsion Intravenous 1,512 ml @ 63 mls/hr TPN CONT IV Last administered on 07/09/19at 20:57; Start 07/09/19 at 22:00; Stop 07/10/19 at 21:59; Status DC Sodium Chloride 90 meq/Potassium Chloride 15 meq/ Potassium Phosphate 15 mmol/ Magnesium Sulfate 10 meq/Calcium Gluconate 20 meq/ Multivitamins 10 ml/Chromium/ Copper/Manganese/ Seleni/Zn 0.5 ml/ Total Parenteral Nutrition/Amino Acids/Dextrose/ Fat Emulsion Intravenous 1,512 ml @ 63 mls/hr TPN CONT IV ; Start 07/10/19 at 22:00; Stop 07/10/19 at 14:16; Status DC Sodium Chloride 90 meq/Potassium Chloride 15 meq/ Potassium Phosphate 15 mmol/ Magnesium Sulfate 10 meq/Calcium Gluconate 20 meq/ Multivitamins 10 ml/Chromium/ Copper/Manganese/ Seleni/Zn 0.5 ml/ Total Parenteral Nutrition/Amino Acids/Dextrose/ Fat Emulsion Intravenous 1,200 ml @ 50 mls/hr TPN CONT IV ; Start 07/10/19 at 22:00; Stop 07/10/19 at 14:17; Status DC Sodium Chloride 90 meq/Potassium Chloride 15 meq/ Potassium Phosphate 10 mmol/ Magnesium Sulfate 10 meq/Calcium Gluconate 20 meq/ Multivitamins 10 ml/Chromium/ Copper/Manganese/ Seleni/Zn 0.5 ml/ Total Parenteral Nutrition/Amino Acids/Dextrose/ Fat Emulsion Intravenous 1,200 ml @ 50 mls/hr TPN CONT IV Last administered on 07/10/19at 23:29; Start 07/10/19 at 22:00; Stop 07/11/19 at 21:59; Status DC Sodium Chloride 1,000 ml @ 1,000 mls/hr Q1H PRN IV hypotension; Start 07/11/19 at 07:28; Stop 07/11/19 at 13:27; Status DC Albumin Human 200 ml @ 200 mls/hr 1X ONCE IV Last administered on 07/11/19at 08:51; Start 07/11/19 at 07:30; Stop 07/11/19 at 08:29; Status DC Diphenhydramine HCl (Benadryl) 25 mg 1X PRN PRN IV ITCHING; Start 07/11/19 at 07:30; Stop 07/12/19 at 07:29; Status DC Diphenhydramine HCl (Benadryl) 25 mg 1X PRN PRN IV ITCHING; Start 07/11/19 at 07:30; Stop 07/12/19 at 07:29; Status DC Sodium Chloride 1,000 ml @ 400 mls/hr Q2H30M PRN IV PATENCY; Start 07/11/19 at 07:28; Stop 07/11/19 at 19:27; Status DC Info (PHARMACY MONITORING -- do not chart) 1 each PRN DAILY PRN MC SEE COMMENTS; Start 07/11/19 at 07:30; Stop 07/22/19 at 13:01; Status DC Metronidazole 100 ml @ 100 mls/hr Q6HRS IV Last administered on 07/27/19at 06:26; Start 07/11/19 at 08:30; Stop 07/27/19 at 09:58; Status DC Micafungin Sodium 100 mg/Dextrose 100 ml @ 100 mls/hr Q24H IV Last administered on 07/31/19at 10:26; Start 07/11/19 at 09:00 Propofol 0 ml @ As Directed STK-MED ONCE IV ; Start 07/11/19 at 07:53; Stop 07/11/19 at 07:53; Status DC Etomidate (Amidate) 20 mg STK-MED ONCE IV ; Start 07/11/19 at 07:53; Stop 07/11/19 at 07:54; Status DC Midazolam HCl (Versed) 5 mg STK-MED ONCE .ROUTE ; Start 07/11/19 at 07:57; Stop 07/11/19 at 07:57; Status DC Fentanyl Citrate 30 ml @ 0 mls/hr CONT PRN IV SEE PROTOCOL Last administered on 08/01/19at 07:09; Start 07/11/19 at 08:15 Artificial Tears (Artificial Tears) 1 drop PRN Q1HR PRN OU DRY EYE, 1st choice; Start 07/11/19 at 08:15 Midazolam HCl 50 mg/Sodium Chloride 50 ml @ 0 mls/hr CONT PRN IV SEE PROTOCOL Last administered on 07/14/19at 22:39; Start 07/11/19 at 08:15; Stop 07/16/19 at 15:59; Status DC Etomidate (Amidate) 8 mg 1X ONCE IV Last administered on 07/11/19at 08:33; Start 07/11/19 at 08:30; Stop 07/11/19 at 08:31; Status DC Succinylcholine Chloride (Anectine) 120 mg 1X ONCE IV Last administered on 07/11/19at 08:34; Start 07/11/19 at 08:30; Stop 07/11/19 at 08:31; Status DC Midazolam HCl (Versed) 5 mg 1X ONCE IV ; Start 07/11/19 at 08:30; Stop 07/11/19 at 08:31; Status DC Potassium Chloride 15 meq/ Bicarbonate Dialysis Soln w/ out KCl 5,007.5 ml @ 1,000 mls/ hr Q5H1M IV Last administered on 07/12/19at 11:11; Start 07/11/19 at 12:00; Stop 07/12/19 at 11:15; Status DC Potassium Chloride 15 meq/ Bicarbonate Dialysis Soln w/ out KCl 5,007.5 ml @ 1,000 mls/ hr Q5H1M IV Last administered on 07/12/19at 11:12; Start 07/11/19 at 12:00; Stop 07/12/19 at 11:17; Status DC Potassium Chloride 15 meq/ Bicarbonate Dialysis Soln w/ out KCl 5,007.5 ml @ 1,000 mls/ hr Q5H1M IV Last administered on 07/12/19at 11:11; Start 07/11/19 at 12:00; Stop 07/12/19 at 11:19; Status DC Sodium Chloride 90 meq/Potassium Chloride 15 meq/ Potassium Phosphate 10 mmol/ Magnesium Sulfate 10 meq/Calcium Gluconate 20 meq/ Multivitamins 10 ml/Chromium/ Copper/Manganese/ Seleni/Zn 0.5 ml/ Total Parenteral Nutrition/Amino Acids/Dextrose/ Fat Emulsion Intravenous 1,400 ml @ 58.333 mls/ hr TPN CONT IV Last administered on 07/11/19at 21:42; Start 07/11/19 at 22:00; Stop 07/12/19 at 21:59; Status DC Heparin Sodium (Porcine) (Heparin Sodium) 5,000 unit Q8HRS SQ Last administered on 07/16/19at 05:55; Start 07/11/19 at 15:00; Stop 07/16/19 at 13:28; Status DC Meropenem 500 mg/ Sodium Chloride 50 ml @ 100 mls/hr Q6HRS IV Last administered on 07/13/19at 06:00; Start 07/12/19 at 09:00; Stop 07/13/19 at 07:29; Status DC Potassium Phosphate 20 mmol/ Sodium Chloride 106.6667 ml @ 51.667 m... 1X ONCE IV Last administered on 07/12/19at 11:22; Start 07/12/19 at 10:15; Stop 07/12/19 at 12:18; Status DC Acetaminophen (Tylenol Supp) 650 mg PRN Q6HRS PRN MS MILD PAIN / TEMP Last administered on 07/31/19at 17:13; Start 07/12/19 at 10:30 Potassium Chloride/Water 100 ml @ 100 mls/hr Q1H IV Last administered on 07/12/19at 12:12; Start 07/12/19 at 11:00; Stop 07/12/19 at 12:59; Status DC Potassium Chloride 20 meq/ Bicarbonate Dialysis Soln w/ out KCl 5,010 ml @ 1,000 mls/hr Q5H1M IV Last administered on 07/13/19at 08:48; Start 07/12/19 at 12:00; Stop 07/13/19 at 13:03; Status DC Potassium Chloride 20 meq/ Bicarbonate Dialysis Soln w/ out KCl 5,010 ml @ 1,0 00 mls/hr Q5H1M IV Last administered on 07/17/19at 14:52; Start 07/12/19 at 11:30; Stop 07/17/19 at 19:59; Status DC Potassium Chloride 20 meq/ Bicarbonate Dialysis Soln w/ out KCl 5,010 ml @ 1,000 mls/hr Q5H1M IV Last administered on 07/17/19at 14:53; Start 07/12/19 at 11:30; Stop 07/17/19 at 19:59; Status DC Sodium Chloride 90 meq/Potassium Chloride 15 meq/ Potassium Phosphate 15 mmol/ Magnesium Sulfate 10 meq/Calcium Gluconate 15 meq/ Multivitamins 10 ml/Chromium/ Copper/Manganese/ Seleni/Zn 0.5 ml/ Total Parenteral Nutrition/Amino Acids/Dextrose/ Fat Emulsion Intravenous 1,400 ml @ 58.333 mls/ hr TPN CONT IV Last administered on 07/12/19at 22:17; Start 07/12/19 at 22:00; Stop 07/13/19 at 21:59; Status DC Cefepime HCl (Maxipime) 2 gm Q12HR IVP Last administered on 07/26/19at 20:56; Start 07/13/19 at 09:00; Stop 07/27/19 at 09:58; Status DC Daptomycin 500 mg/ Sodium Chloride 50 ml @ 100 mls/hr Q48H IV Last administered on 07/29/19at 09:57; Start 07/13/19 at 08:30; Stop 07/29/19 at 10:07; Status DC Lidocaine HCl (Buffered Lidocaine 1%) 3 ml 1X ONCE INJ Last administered on 07/13/19at 10:27; Start 07/13/19 at 10:30; Stop 07/13/19 at 10:31; Status DC Potassium Phosphate 20 mmol/ Sodium Chloride 106.6667 ml @ 51.667 m... 1X ONCE IV Last administered on 07/13/19at 12:51; Start 07/13/19 at 13:00; Stop 07/13/19 at 15:03; Status DC Sodium Chloride 90 meq/Potassium Chloride 15 meq/ Potassium Phosphate 18 mmol/ Magnesium Sulfate 8 meq/Calcium Gluconate 15 meq/ Multivitamins 10 ml/Chromium/ Copper/Manganese/ Seleni/Zn 0.5 ml/ Total Parenteral Nutrition/Amino Acids/Dextrose/ Fat Emulsion Intravenous 1,400 ml @ 58.333 mls/ hr TPN CONT IV Last administered on 07/13/19at 22:16; Start 07/13/19 at 22:00; Stop 07/14/19 at 21:59; Status DC Potassium Chloride 20 meq/ Bicarbonate Dialysis Soln w/ out KCl 5,010 ml @ 1,000 mls/hr Q5H1M IV Last administered on 07/17/19at 14:54; Start 07/13/19 at 16:00; Stop 07/17/19 at 19:59; Status DC Multi-Ingred Cream/Lotion/Oil/ Oint (Artificial Tears Eye Ointment) 1 ramu PRN Q1HR PRN OU DRY EYE, 2nd choice Last administered on 08/01/19at 08:19; Start 07/13/19 at 17:30 Sodium Chloride 90 meq/Potassium Chloride 15 meq/ Potassium Phosphate 18 mmol/ Magnesium Sulfate 8 meq/Calcium Gluconate 15 meq/ Multivitamins 10 ml/Chromium/ Copper/Manganese/ Seleni/Zn 0.5 ml/ Total Parenteral Nutrition/Amino Acids/Dextrose/ Fat Emulsion Intravenous 1,400 ml @ 58.333 mls/ hr TPN CONT IV Last administered on 07/14/19at 22:00; Start 07/14/19 at 22:00; Stop 07/15/19 at 21:59; Status DC Albumin Human 500 ml @ 125 mls/hr 1X ONCE IV ; Start 07/14/19 at 14:15; Stop 07/14/19 at 18:14; Status DC Sodium Chloride 90 meq/Potassium Chloride 15 meq/ Potassium Phosphate 18 mmol/ Magnesium Sulfate 8 meq/Calcium Gluconate 15 meq/ Multivitamins 10 ml/Chromium/ Copper/Manganese/ Seleni/Zn 0.5 ml/ Insulin Human Regular 10 unit/ Total Parenteral Nutrition/Amino Acids/Dextrose/ Fat Emulsion Intravenous 1,400 ml @ 58.333 mls/ hr TPN CONT IV Last administered on 07/15/19at 21:43; Start 07/15/19 at 22:00; Stop 07/16/19 at 21:59; Status DC Lidocaine HCl (Buffered Lidocaine 1%) 3 ml STK-MED ONCE .ROUTE ; Start 07/13/19 at 10:00; Stop 07/15/19 at 13:57; Status DC Midazolam HCl 100 mg/Sodium Chloride 100 ml @ 7 mls/hr CONT PRN IV SEE PROTOCOL Last administered on 07/27/19at 15:35; Start 07/16/19 at 16:00 Sodium Chloride 90 meq/Potassium Chloride 15 meq/ Potassium Phosphate 18 mmol/ Magnesium Sulfate 8 meq/Calcium Gluconate 15 meq/ Multivitamins 10 ml/Chromium/ Copper/Manganese/ Seleni/Zn 0.5 ml/ Insulin Human Regular 15 unit/ Total Parenteral Nutrition/Amino Acids/Dextrose/ Fat Emulsion Intravenous 1,400 ml @ 58.333 mls/ hr TPN CONT IV Last administered on 07/16/19at 20:34; Start 07/16/19 at 22:00; Stop 07/17/19 at 21:59; Status DC Info (Icu Electrolyte Protocol) 1 ea CONT PRN PRN MC PER PROTOCOL; Start 07/17/19 at 13:15 Sodium Chloride 90 meq/Potassium Chloride 15 meq/ Potassium Phosphate 18 mmol/ Magnesium Sulfate 8 meq/Calcium Gluconate 15 meq/ Multivitamins 10 ml/Chromium/ Copper/Manganese/ Seleni/Zn 0.5 ml/ Insulin Human Regular 15 unit/ Total Parenteral Nutrition/Amino Acids/Dextrose/ Fat Emulsion Intravenous 1,400 ml @ 58.333 mls/ hr TPN CONT IV Last administered on 07/17/19at 22:05; Start 07/17/19 at 22:00; Stop 07/18/19 at 21:59; Status DC Potassium Chloride 15 meq/ Bicarbonate Dialysis Soln w/ out KCl 5,007.5 ml @ 1,000 mls/ hr Q5H1M IV Last administered on 07/20/19at 18:14; Start 07/17/19 at 20:00; Stop 07/21/19 at 13:08; Status DC Potassium Chloride 15 meq/ Bicarbonate Dialysis Soln w/ out KCl 5,007.5 ml @ 1 ,000 mls/ hr Q5H1M IV Last administered on 07/20/19at 18:14; Start 07/17/19 at 20:00; Stop 07/21/19 at 13:08; Status DC Potassium Chloride 15 meq/ Bicarbonate Dialysis Soln w/ out KCl 5,007.5 ml @ 1,000 mls/ hr Q5H1M IV Last administered on 07/20/19at 18:14; Start 07/17/19 at 20:00; Stop 07/21/19 at 13:08; Status DC Iohexol (Omnipaque 240 Mg/ml) 30 ml 1X ONCE PO Last administered on 07/18/19at 11:30; Start 07/18/19 at 11:30; Stop 07/18/19 at 11:33; Status DC Info (CONTRAST GIVEN -- Rx MONITORING) 1 each PRN DAILY PRN MC SEE COMMENTS; Start 07/18/19 at 11:45; Stop 07/20/19 at 11:44; Status DC Sodium Chloride 90 meq/Potassium Chloride 15 meq/ Potassium Phosphate 18 mmol/ Magnesium Sulfate 8 meq/Calcium Gluconate 15 meq/ Multivitamins 10 ml/Chromium/ Copper/Manganese/ Seleni/Zn 0.5 ml/ Insulin Human Regular 15 unit/ Total Parenteral Nutrition/Amino Acids/Dextrose/ Fat Emulsion Intravenous 1,400 ml @ 58.333 mls/ hr TPN CONT IV Last administered on 07/18/19at 21:47; Start 07/18/19 at 22:00; Stop 07/19/19 at 21:59; Status DC Sodium Chloride 90 meq/Potassium Chloride 15 meq/ Potassium Phosphate 18 mmol/ Magnesium Sulfate 8 meq/Calcium Gluconate 15 meq/ Multivitamins 10 ml/Chromium/ Copper/Manganese/ Seleni/Zn 0.5 ml/ Insulin Human Regular 20 unit/ Total Parenteral Nutrition/Amino Acids/Dextrose/ Fat Emulsion Intravenous 1,400 ml @ 58.333 mls/ hr TPN CONT IV Last administered on 07/19/19at 21:36; Start 07/19/19 at 22:00; Stop 07/20/19 at 21:59; Status DC Alteplase, Recombinant (Cathflo For Central Catheter Clearance) 1 mg 1X ONCE INT CAT Last administered on 07/19/19at 20:03; Start 07/19/19 at 19:30; Stop 07/19/19 at 19:46; Status DC Alteplase, Recombinant (Cathflo For Central Catheter Clearance) 1 mg 1X ONCE INT CAT Last administered on 07/19/19at 22:05; Start 07/19/19 at 22:00; Stop 07/19/19 at 22:01; Status DC Sodium Chloride 90 meq/Potassium Chloride 15 meq/ Potassium Phosphate 18 mmol/ Magnesium Sulfate 8 meq/Calcium Gluconate 15 meq/ Multivitamins 10 ml/Chromium/ Copper/Manganese/ Seleni/Zn 0.5 ml/ Insulin Human Regular 20 unit/ Total Parenteral Nutrition/Amino Acids/Dextrose/ Fat Emulsion Intravenous 1,400 ml @ 58.333 mls/ hr TPN CONT IV Last administered on 07/20/19at 21:30; Start 07/20/19 at 22:00; Stop 07/21/19 at 21:59; Status DC Dexmedetomidine HCl 400 mcg/ Sodium Chloride 100 ml @ 0 mls/hr CONT PRN IV ANXIETY / AGITATION Last administered on 08/01/19at 06:04; Start 07/21/19 at 08:15 Sodium Chloride 500 ml @ 500 mls/hr 1X PRN PRN IV ELEVATED BP, SEE COMMENTS; Start 07/21/19 at 08:15 Atropine Sulfate (ATROPINE 0.5mg SYRINGE) 0.5 mg PRN Q5MIN PRN IV SEE COMMENTS; Start 07/21/19 at 08:15 Furosemide (Lasix) 20 mg 1X ONCE IVP Last administered on 07/21/19at 08:19; Start 07/21/19 at 08:15; Stop 07/21/19 at 08:16; Status DC Lidocaine HCl (Buffered Lidocaine 1%) 3 ml STK-MED ONCE .ROUTE ; Start 07/21/19 at 08:39; Stop 07/21/19 at 08:39; Status DC Lidocaine HCl (Buffered Lidocaine 1%) 6 ml 1X ONCE INJ Last administered on 07/21/19at 09:05; Start 07/21/19 at 09:00; Stop 07/21/19 at 09:06; Status DC Sodium Chloride 90 meq/Potassium Chloride 15 meq/ Potassium Phosphate 18 mmol/ Magnesium Sulfate 8 meq/Calcium Gluconate 15 meq/ Multivitamins 10 ml/Chromium/ Copper/Manganese/ Seleni/Zn 0.5 ml/ Insulin Human Regular 20 unit/ Total Parenteral Nutrition/Amino Acids/Dextrose/ Fat Emulsion Intravenous 1,400 ml @ 58.333 mls/ hr TPN CONT IV Last administered on 07/21/19at 22:45; Start 07/21/19 at 22:00; Stop 07/22/19 at 21:59; Status DC Sodium Chloride 1,000 ml @ 1,000 mls/hr Q1H PRN IV hypotension; Start 07/22/19 at 07:30; Stop 07/22/19 at 13:29; Status DC Albumin Human 200 ml @ 200 mls/hr 1X PRN PRN IV Hypotension Last administered on 07/22/19at 09:36; Start 07/22/19 at 07:30; Stop 07/22/19 at 13:29; Status DC Sodium Chloride (Normal Saline Flush) 10 ml 1X PRN PRN IV AP catheter pack; Start 07/22/19 at 07:30; Stop 07/22/19 at 21:29; Status DC Sodium Chloride (Normal Saline Flush) 10 ml 1X PRN PRN IV F[employer] catheter pack; Start 07/22/19 at 07:30; Stop 07/23/19 at 07:29; Status DC Sodium Chloride 1,000 ml @ 400 mls/hr Q2H30M PRN IV PATENCY; Start 07/22/19 at 07:30; Stop 07/22/19 at 19:29; Status DC Info (PHARMACY MONITORING -- do not chart) 1 each PRN DAILY PRN MC SEE COMMENTS; Start 07/22/19 at 07:30; Stop 07/22/19 at 13:02; Status DC Info (PHARMACY MONITORING -- do not chart) 1 each PRN DAILY PRN MC SEE COMMENTS; Start 07/22/19 at 07:30; Stop 07/24/19 at 12:45; Status DC Sodium Chloride 90 meq/Potassium Chloride 15 meq/ Potassium Phosphate 10 mmol/ Magnesium Sulfate 8 meq/Calcium Gluconate 15 meq/ Multivitamins 10 ml/Chromium/ Copper/Manganese/ Seleni/Zn 0.5 ml/ Insulin Human Regular 25 unit/ Total Parenteral Nutrition/Amino Acids/Dextrose/ Fat Emulsion Intravenous 1,400 ml @ 58.333 mls/ hr TPN CONT IV Last administered on 07/22/19at 22:19; Start 07/22/19 at 22:00; Stop 07/23/19 at 21:59; Status DC Heparin Sodium (Porcine) (Heparin Sodium) 5,000 unit Q12HR SQ Last administered on 08/01/19at 08:14; Start 07/22/19 at 21:00 Ondansetron HCl (Zofran) 4 mg PRN Q6HRS PRN IV NAUSEA/VOMITING; Start 07/25/19 at 07:00; Stop 07/26/19 at 06:59; Status DC Fentanyl Citrate (Fentanyl 2ml Vial) 25 mcg PRN Q5MIN PRN IV MILD PAIN 1-3; Start 07/25/19 at 07:00; Stop 07/26/19 at 06:59; Status DC Fentanyl Citrate (Fentanyl 2ml Vial) 50 mcg PRN Q5MIN PRN IV MODERATE TO SEVERE PAIN; Start 07/25/19 at 07:00; Stop 07/26/19 at 06:59; Status DC Ringer's Solution 1,000 ml @ 30 mls/hr Q24H IV ; Start 07/25/19 at 07:00; Stop 07/25/19 at 18:59; Status DC Lidocaine HCl (Xylocaine-Mpf 1% 2ml Vial) 2 ml PRN 1X PRN ID PRIOR TO IV START; Start 07/25/19 at 07:00; Stop 07/26/19 at 06:59; Status DC Prochlorperazine Edisylate (Compazine) 5 mg PACU PRN PRN IV NAUSEA, MRX1; Start 07/25/19 at 07:00; Stop 07/26/19 at 06:59; Status DC Sodium Chloride 1,000 ml @ 1,000 mls/hr Q1H PRN IV hypotension; Start 07/23/19 at 09:10; Stop 07/23/19 at 15:09; Status DC Albumin Human 200 ml @ 200 mls/hr 1X PRN PRN IV Hypotension Last administered on 07/23/19at 10:10; Start 07/23/19 at 09:15; Stop 07/23/19 at 15:14; Status DC Sodium Chloride 1,000 ml @ 400 mls/hr Q2H30M PRN IV PATENCY; Start 07/23/19 at 09:10; Stop 07/23/19 at 21:09; Status DC Info (PHARMACY MONITORING -- do not chart) 1 each PRN DAILY PRN MC SEE COMMENTS; Start 07/23/19 at 09:15; Stop 07/24/19 at 12:45; Status DC Info (PHARMACY MONITORING -- do not chart) 1 each PRN DAILY PRN MC SEE COM MENTS; Start 07/23/19 at 09:15; Stop 07/24/19 at 12:45; Status DC Sodium Chloride 90 meq/Potassium Chloride 15 meq/ Potassium Phosphate 10 mmol/ Magnesium Sulfate 8 meq/Calcium Gluconate 15 meq/ Multivitamins 10 ml/Chromium/ Copper/Manganese/ Seleni/Zn 0.5 ml/ Insulin Human Regular 25 unit/ Total Parenteral Nutrition/Amino Acids/Dextrose/ Fat Emulsion Intravenous 1,400 ml @ 58.333 mls/ hr TPN CONT IV Last administered on 07/23/19at 22:10; Start 07/23/19 at 22:00; Stop 07/24/19 at 21:59; Status DC Magnesium Sulfate 50 ml @ 25 mls/hr PRN DAILY PRN IV for Mag < 1.7 on am labs; Start 07/24/19 at 09:15 Sodium Chloride 90 meq/Potassium Chloride 15 meq/ Potassium Phosphate 10 mmol/ Magnesium Sulfate 8 meq/Calcium Gluconate 15 meq/ Multivitamins 10 ml/Chromium/ Copper/Manganese/ Seleni/Zn 0.5 ml/ Insulin Human Regular 25 unit/ Total Parenteral Nutrition/Amino Acids/Dextrose/ Fat Emulsion Intravenous 1,400 ml @ 58.333 mls/ hr TPN CONT IV Last administered on 07/24/19at 21:20; Start 07/24/19 at 22:00; Stop 07/25/19 at 21:59; Status DC Sodium Chloride 1,000 ml @ 1,000 mls/hr Q1H PRN IV hypotension; Start 07/24/19 at 12:23; Stop 07/24/19 at 18:22; Status DC Albumin Human 200 ml @ 200 mls/hr 1X ONCE IV Last administered on 07/24/19at 13:34; Start 07/24/19 at 12:30; Stop 07/24/19 at 13:29; Status DC Diphenhydramine HCl (Benadryl) 25 mg 1X PRN PRN IV ITCHING; Start 07/24/19 at 12:30; Stop 07/25/19 at 12:29; Status DC Diphenhydramine HCl (Benadryl) 25 mg 1X PRN PRN IV ITCHING; Start 07/24/19 at 12:30; Stop 07/25/19 at 12:29; Status DC Info (PHARMACY MONITORING -- do not chart) 1 each PRN DAILY PRN MC SEE COMMENTS; Start 07/24/19 at 12:30; Status Cancel Bupivacaine HCl/ Epinephrine Bitart (Sensorcain-Epi 0.5%-1:[id number] Mpf) 30 ml STK-MED ONCE .ROUTE Last administered on 07/25/19at 11:44; Start 07/25/19 at 11:00; Stop 07/25/19 at 11:01; Status DC Cellulose (Surgicel Fibrillar 1x2) 1 each STK-MED ONCE .ROUTE ; Start 07/25/19 at 11:00; Stop 07/25/19 at 11:01; Status DC Sodium Chloride 90 meq/Potassium Chloride 15 meq/ Potassium Phosphate 10 mmol/ Magnesium Sulfate 12 meq/Calcium Gluconate 15 meq/ Multivitamins 10 ml/Chromium/ Copper/Manganese/ Seleni/Zn 0.5 ml/ Insulin Human Regular 25 unit/ Total Parenteral Nutrition/Amino Acids/Dextrose/ Fat Emulsion Intravenous 1,400 ml @ 58.333 mls/ hr TPN CONT IV Last administered on 07/25/19at 22:24; Start 07/25/19 at 22:00; Stop 07/26/19 at 21:59; Status DC Propofol 20 ml @ As Directed STK-MED ONCE IV ; Start 07/25/19 at 11:07; Stop 07/25/19 at 11:07; Status DC Cellulose (Surgicel Hemostat 4x8) 1 each STK-MED ONCE .ROUTE Last administered on 07/25/19at 11:44; Start 07/25/19 at 11:55; Stop 07/25/19 at 11:56; Status DC Sevoflurane (Ultane) 60 ml STK-MED ONCE IH ; Start 07/25/19 at 12:46; Stop 07/25/19 at 12:46; Status DC Sodium Chloride 1,000 ml @ 1,000 mls/hr Q1H PRN IV hypotension; Start 07/25/19 at 13:51; Stop 07/25/19 at 19:50; Status DC Albumin Human 200 ml @ 200 mls/hr 1X PRN PRN IV Hypotension Last administered on 07/25/19at 14:51; Start 07/25/19 at 14:00; Stop 07/25/19 at 19:59; Status DC Diphenhydramine HCl (Benadryl) 25 mg 1X PRN PRN IV ITCHING; Start 07/25/19 at 14:00; Stop 07/26/19 at 13:59; Status DC Diphenhydramine HCl (Benadryl) 25 mg 1X PRN PRN IV ITCHING; Start 07/25/19 at 14:00; Stop 07/26/19 at 13:59; Status DC Sodium Chloride 1,000 ml @ 400 mls/hr Q2H30M PRN IV PATENCY; Start 07/25/19 at 13:51; Stop 07/26/19 at 01:50; Status DC Info (PHARMACY MONITORING -- do not chart) 1 each PRN DAILY PRN MC SEE COMMENTS; Start 07/25/19 at 14:00; Stop 07/28/19 at 08:16; Status DC Heparin Sodium (Porcine) (Hep Lock Adult) 500 unit STK-MED ONCE IVP ; Start 07/26/19 at 09:29; Stop 07/26/19 at 09:30; Status DC Sodium Chloride 1,000 ml @ 1,000 mls/hr Q1H PRN IV hypotension; Start 07/26/19 at 10:43; Stop 07/26/19 at 16:42; Status DC Sodium Chloride 1,000 ml @ 400 mls/hr Q2H30M PRN IV PATENCY; Start 07/26/19 at 10:43; Stop 07/26/19 at 22:42; Status DC Info (PHARMACY MONITORING -- do not chart) 1 each PRN DAILY PRN MC SEE COMMENTS; Start 07/26/19 at 10:45; Status UNV Info (PHARMACY MONITORING -- do not chart) 1 each PRN DAILY PRN MC SEE COMMENTS; Start 07/26/19 at 10:45; Status UNV Sodium Chloride 90 meq/Potassium Chloride 15 meq/ Magnesium Sulfate 12 meq/Calcium Gluconate 15 meq/ Multivitamins 10 ml/Chromium/ Copper/Manganese/ Seleni/Zn 0.5 ml/ Insulin Human Regular 25 unit/ Total Parenteral Nutrition/Amino Acids/Dextrose/ Fat Emulsion Intravenous 1,400 ml @ 58.333 mls/ hr TPN CONT IV Last administered on 07/26/19at 22:13; Start 07/26/19 at 22:00; Stop 07/27/19 at 21:59; Status DC Sodium Chloride 1,000 ml @ 1,000 mls/hr Q1H PRN IV hypotension; Start 07/27/19 at 07:50; Stop 07/27/19 at 13:49; Status DC Albumin Human 200 ml @ 200 mls/hr 1X ONCE IV ; Start 07/27/19 at 08:00; Stop 07/27/19 at 08:53; Status DC Diphenhydramine HCl (Benadryl) 25 mg 1X PRN PRN IV ITCHING; Start 07/27/19 at 08:00; Stop 07/28/19 at 07:59; Status DC Diphenhydramine HCl (Benadryl) 25 mg 1X PRN PRN IV ITCHING; Start 07/27/19 at 08:00; Stop 07/28/19 at 07:59; Status DC Info (PHARMACY MONITORING -- do not chart) 1 each PRN DAILY PRN MC SEE LUIS ALBERTO NTS; Start 07/27/19 at 08:00; Stop 07/28/19 at 08:16; Status DC Albumin Human 50 ml @ 50 mls/hr 1X ONCE IV ; Start 07/27/19 at 08:53; Stop 07/27/19 at 08:56; Status DC Albumin Human 200 ml @ 50 mls/hr PRN 1X PRN IV HYPOTENSION Last administered on 07/27/19at 09:09; Start 07/27/19 at 09:00 Meropenem 500 mg/ Sodium Chloride 50 ml @ 100 mls/hr Q12H IV Last administered on 07/31/19at 21:48; Start 07/27/19 at 10:00 Sodium Chloride 90 meq/Magnesium Sulfate 12 meq/ Calcium Gluconate 15 meq/ Multivitamins 10 ml/Chromium/ Copper/Manganese/ Seleni/Zn 0.5 ml/ Insulin Human Regular 25 unit/ Total Parenteral Nutrition/Amino Acids/Dextrose/ Fat Emulsion Intravenous 1,400 ml @ 58.333 mls/ hr TPN CONT IV Last administered on 07/27/19at 21:41; Start 07/27/19 at 22:00; Stop 07/28/19 at 21:59; Status DC Sodium Chloride 1,000 ml @ 1,000 mls/hr Q1H PRN IV hypotension; Start 07/28/19 at 07:58; Stop 07/28/19 at 13:57; Status DC Albumin Human 200 ml @ 200 mls/hr 1X PRN PRN IV Hypotension Last administered on 07/28/19at 09:30; Start 07/28/19 at 08:00; Stop 07/28/19 at 13:59; Status DC Sodium Chloride 1,000 ml @ 400 mls/hr Q2H30M PRN IV PATENCY; Start 07/28/19 at 07:58; Stop 07/28/19 at 19:57; Status DC Info (PHARMACY MONITORING -- do not chart) 1 each PRN DAILY PRN MC SEE COMMENTS; Start 07/28/19 at 08:00 Info (PHARMACY MONITORING -- do not chart) 1 each PRN DAILY PRN MC SEE COMMENTS; Start 07/28/19 at 08:15; Status UNV Sodium Chloride 90 meq/Potassium Phosphate 5 mmol/ Magnesium Sulfate 12 meq/Calcium Gluconate 15 meq/ Multivitamins 10 ml/Chromium/ Copper/Manganese/ Seleni/Zn 0.5 ml/ Insulin Human Regular 30 unit/ Total Parenteral Nutrition/Amino Acids/Dextrose/ Fat Emulsion Intravenous 1,400 ml @ 58.333 mls/ hr TPN CONT IV Last administered on 07/28/19at 22:08; Start 07/28/19 at 22:00; Stop 07/29/19 at 21:59; Status DC Linezolid/Dextrose 300 ml @ 300 mls/hr Q12HR IV Last administered on 07/31/19at 21:48; Start 07/29/19 at 11:00 Sodium Chloride 90 meq/Potassium Phosphate 15 mmol/ Magnesium Sulfate 12 meq/Calcium Gluconate 15 meq/ Multivitamins 10 ml/Chromium/ Copper/Manganese/ Seleni/Zn 0.5 ml/ Insulin Human Regular 30 unit/ Total Parenteral Nutrition/Amino Acids/Dextrose/ Fat Emulsion Intravenous 1,400 ml @ 58.333 mls/ hr TPN CONT IV Last administered on 07/29/19at 21:49; Start 07/29/19 at 22:00; Stop 07/30/19 at 21:59; Status DC Sodium Chloride 90 meq/Potassium Phosphate 15 mmol/ Magnesium Sulfate 12 meq/Zachariah cium Gluconate 15 meq/ Multivitamins 10 ml/Chromium/ Copper/Manganese/ Seleni/Zn 0.5 ml/ Insulin Human Regular 40 unit/ Total Parenteral Nutrition/Amino Acids/Dextrose/ Fat Emulsion Intravenous 1,400 ml @ 58.333 mls/ hr TPN CONT IV Last administered on 07/30/19at 21:21; Start 07/30/19 at 22:00; Stop 07/31/19 at 21:59; Status DC Sodium Chloride 1,000 ml @ 1,000 mls/hr Q1H PRN IV hypotension; Start 07/30/19 at 13:26; Stop 07/30/19 at 19:25; Status DC Albumin Human 200 ml @ 200 mls/hr 1X PRN PRN IV Hypotension Last administered on 07/30/19at 15:00; Start 07/30/19 at 13:30; Stop 07/30/19 at 19:29; Status DC Sodium Chloride (Normal Saline Flush) 10 ml 1X PRN PRN IV AP catheter pack; Start 07/30/19 at 13:30; Stop 07/31/19 at 13:29; Status DC Sodium Chloride (Normal Saline Flush) 10 ml 1X PRN PRN IV F[employer] catheter pack; Start 07/30/19 at 13:30; Stop 07/31/19 at 13:29; Status DC Sodium Chloride 1,000 ml @ 400 mls/hr Q2H30M PRN IV PATENCY; Start 07/30/19 at 13:26; Stop 07/31/19 at 01:25; Status DC Info (PHARMACY MONITORING -- do not chart) 1 each PRN DAILY PRN MC SEE COMMENTS; Start 07/30/19 at 13:30; Stop 07/30/19 at 13:33; Status DC Info (PHARMACY MONITORING -- do not chart) 1 each PRN DAILY PRN MC SEE COMMENTS; Start 07/30/19 at 13:30; Stop 07/30/19 at 13:34; Status DC Sodium Chloride 90 meq/Potassium Phosphate 19 mmol/ Magnesium Sulfate 12 meq/Calcium Gluconate 15 meq/ Multivitamins 10 ml/Chromium/ Copper/Manganese/ Seleni/Zn 0.5 ml/ Insulin Human Regular 40 unit/ Total Parenteral Nutrition/Amino Acids/Dextrose/ Fat Emulsion Intravenous 1,400 ml @ 58.333 mls/ hr TPN CONT IV Last administered on 07/31/19at 21:54; Start 07/31/19 at 22:00; Stop 08/01/19 at 21:59 Active Scripts Active Reported Bisoprolol Fumarate 5 Mg Tablet 10 Mg PO DAILY Vitals/I & O Vital Sign - Last 24 Hours 07/31/19 07/31/19 07/31/19 07/31/19 09:00 10:00 11:00 11:48 Temp 99.1 99.1 Pulse 112 112 104 Resp 22 32 25 B/P (MAP) 108/56 (73) 121/67 (85) 108/57 (74) Pulse Ox 99 100 98 98 O2 Delivery Ventilator Ventilator Ventilator Ventilator 07/31/19 07/31/19 07/31/19 07/31/19 12:00 12:00 13:00 13:42 Temp 98.8 98.8 Pulse 106 117 Resp 21 22 B/P (MAP) 116/64 (81) 118/68 (85) Pulse Ox 98 100 99 O2 Delivery Ventilator Mechanical Ventilator Ventilator Ventilator 07/31/19 07/31/19 07/31/19 07/31/19 14:00 15:00 15:27 16:00 Temp 100.0 100.0 Pulse 112 98 120 Resp 22 22 22 B/P (MAP) 132/78 (96) 108/61 (77) 113/74 (87) Pulse Ox 100 100 98 100 O2 Delivery Ventilator Ventilator Ventilator Ventilator 07/31/19 07/31/19 07/31/19 07/31/19 16:00 17:00 17:02 17:32 Pulse 126 Resp 22 23 21 B/P (MAP) 131/69 (89) Pulse Ox 100 100 100 O2 Delivery Mechanical Ventilator Ventilator Ventilator Ventilator 07/31/19 07/31/19 07/31/19 07/31/19 18:00 18:03 19:00 20:00 Temp 99.5 99.5 Pulse 100 112 113 Resp 22 18 18 B/P (MAP) 133/80 (97) 90/55 (67) 129/81 (97) Pulse Ox 100 100 99 99 O2 Delivery Ventilator Ventilator Ventilator Ventilator 07/31/19 07/31/19 07/31/19 07/31/19 20:00 20:00 21:00 22:00 Pulse 120 130 Resp 18 18 B/P (MAP) 142/73 (96) 128/62 (84) Pulse Ox 100 98 99 O2 Delivery Mechanical Ventilator Ventilator Ventilator 07/31/19 07/31/19 08/01/19 08/01/19 23:00 23:45 00:00 00:00 Temp 99.4 99.4 Pulse 98 128 Resp 18 18 B/P (MAP) 97/50 (66) 154/97 (116) Pulse Ox 98 100 100 O2 Delivery Ventilator Ventilator Ventilator Mechanical Ventilator 08/01/19 08/01/19 08/01/19 08/01/19 00:14 00:51 01:00 02:00 Pulse 115 124 Resp 18 18 18 18 B/P (MAP) 140/66 (90) 153/87 (109) Pulse Ox 100 100 100 98 O2 Delivery Ventilator Ventilator Ventilator Ventilator 08/01/19 08/01/19 08/01/19 08/01/19 03:00 04:00 04:00 04:30 Temp 98.8 98.8 Pulse 88 125 Resp 18 18 B/P (MAP) 96/51 (66) 106/55 (72) Pulse Ox 98 100 100 O2 Delivery Ventilator Ventilator Mechanical Ventilator Ventilator 08/01/19 08/01/19 08/01/19 08/01/19 05:00 06:00 07:00 07:09 Temp 98.3 98.3 Pulse 110 86 94 Resp 18 18 18 18 B/P (MAP) 122/64 (83) 113/71 (85) 93/53 (66) Pulse Ox 99 99 99 99 O2 Delivery Ventilator Ventilator Ventilator Ventilator 08/01/19 08/01/19 08/01/19 07:42 07:54 08:00 Pulse 122 Resp 19 28 B/P (MAP) 125/71 (89) Pulse Ox 99 100 O2 Delivery Ventilator Mechanical Ventilator Ventilator Intake and Output 07/31/19 07/31/19 08/01/19 15:00 23:00 07:00 Intake Total 1296 ml 1433.0 ml Output Total 85 ml 620 ml 261 ml Balance -85 ml 676 ml 1172.0 ml ABI AHN MD Aug 01, 2019 08:52
--- NOTE | 2019-08-01 09:30 | PDOC ---
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 [employer] 08/01/19 0930: SURGICAL PROGRESS NOTE Subjective seen during dialysis Vital Signs Vital Signs Date Time Temp Pulse Resp B/P (MAP) Pulse Ox O2 Delivery O2 Flow Rate FiO2 08/01/19 08:30 100 Ventilator 08/01/19 08:00 122 28 125/71 (89) 08/01/19 07:00 98.3 98.3 I&O Intake and Output 08/01/19 07:00 Intake Total 2729.0 ml Output Total 966 ml Balance 1763.0 ml Intake Oral 0 ml IV Total 2729.0 ml Output Urine Total 366 ml Stool Total 100 ml Gastric Drainage Total 500 ml General: Other (eyes open) HEENT: Other (trach in place) Abdomen: Soft, Other (distended ) Labs Laboratory Tests Test 07/30/19 15:33 07/30/19 17:30 07/31/19 00:08 07/31/19 06:00 Glucose (Fingerstick) 214 mg/dL (70-99) 208 mg/dL (70-99) 172 mg/dL (70-99) Hemoglobin A1c 5.4 % (4.8-5.6) White Blood Count 6.6 x10^3/uL (4.0-11.0) Red Blood Count 2.09 x10^6/uL (3.50-5.40) Hemoglobin 6.8 g/dL (12.0-15.5) Hematocrit 21.0 % (36.0-47.0) Mean Corpuscular Volume 100 fL (79-100) Mean Corpuscular Hemoglobin 33 pg (25-35) Mean Corpuscular Hemoglobin Concent 33 g/dL (31-37) Red Cell Distribution Width 22.2 % (11.5-14.5) Platelet Count 287 x10^3/uL (140-400) Neutrophils (%) (Auto) 74 % (31-73) Lymphocytes (%) (Auto) 10 % (24-48) Monocytes (%) (Auto) 11 % (0-9) Eosinophils (%) (Auto) 4 % (0-3) Basophils (%) (Auto) 1 % (0-3) Neutrophils # (Auto) 4.9 x10^3/uL (1.8-7.7) Lymphocytes # (Auto) 0.6 x10^3/uL (1.0-4.8) Monocytes # (Auto) 0.7 x10^3/uL (0.0-1.1) Eosinophils # (Auto) 0.3 x10^3/uL (0.0-0.7) Basophils # (Auto) 0.0 x10^3/uL (0.0-0.2) Sodium Level 135 mmol/L (136-145) Potassium Level 3.6 mmol/L (3.5-5.1) Chloride Level 99 mmol/L (98-107) Carbon Dioxide Level 29 mmol/L (21-32) Anion Gap 7 (6-14) Blood Urea Nitrogen 56 mg/dL (7-20) Creatinine 1.9 mg/dL (0.6-1.0) Estimated GFR (Cockcroft-Gault) 28.1 Glucose Level 174 mg/dL (70-99) Calcium Level 8.9 mg/dL (8.5-10.1) Phosphorus Level 2.9 mg/dL (2.6-4.7) Albumin 2.9 g/dL (3.4-5.0) Test 07/31/19 08:00 07/31/19 12:00 07/31/19 12:42 07/31/19 17:53 O2 Saturation 97 % (92-99) Arterial Blood pH 7.47 (7.35-7.45) Arterial Blood pCO2 at Patient Temp 34 mmHg (35-46) Arterial Blood pO2 at Patient Temp 95 mmHg (75-108) Arterial Blood HCO3 24 mmol/L (21-28) Arterial Blood Base Excess 1 mmol/L (-3-3) FiO2 35 Urine Collection Type Unknown Urine Color Brown Urine Clarity Cloudy Urine pH 5.0 (<5.0-8.0) Urine Specific [place] >=1.030 (1.000-1.030) Urine Protein 100 mg/dL (NEG-TRACE) Urine Glucose (UA) 100 mg/dL (NEG) Urine Ketones (Stick) Trace mg/dL (NEG) Urine Blood Large (NEG) Urine Nitrite Positive (NEG) Urine Bilirubin Small (NEG) Urine Urobilinogen Dipstick 1.0 mg/dL (0.2 mg/dL) Urine Leukocyte Esterase Small (NEG) Urine RBC >40 /HPF (0-2) Urine WBC 1-4 /HPF (0-4) Urine Squamous Epithelial Cells Occ /LPF Urine Transitional Epithelial Cells Few /LPF Urine Amorphous Sediment Present /HPF Urine Bacteria Few /HPF (0-FEW) Urine Hyaline Casts Few /HPF Urine Mucus Slight /LPF Glucose (Fingerstick) 223 mg/dL (70-99) 166 mg/dL (70-99) Test 08/01/19 00:02 08/01/19 06:09 08/01/19 06:10 Glucose (Fingerstick) 201 mg/dL (70-99) 175 mg/dL (70-99) White Blood Count 5.3 x10^3/uL (4.0-11.0) Red Blood Count 2.48 x10^6/uL (3.50-5.40) Hemoglobin 8.0 g/dL (12.0-15.5) Hematocrit 24.3 % (36.0-47.0) Mean Corpuscular Volume 98 fL (79-100) Mean Corpuscular Hemoglobin 32 pg (25-35) Mean Corpuscular Hemoglobin Concent 33 g/dL (31-37) Red Cell Distribution Width 19.3 % (11.5-14.5) Platelet Count 318 x10^3/uL (140-400) Neutrophils (%) (Auto) 76 % (31-73) Lymphocytes (%) (Auto) 10 % (24-48) Monocytes (%) (Auto) 12 % (0-9) Eosinophils (%) (Auto) 2 % (0-3) Basophils (%) (Auto) 0 % (0-3) Neutrophils # (Auto) 4.0 x10^3/uL (1.8-7.7) Lymphocytes # (Auto) 0.5 x10^3/uL (1.0-4.8) Monocytes # (Auto) 0.6 x10^3/uL (0.0-1.1) Eosinophils # (Auto) 0.1 x10^3/uL (0.0-0.7) Basophils # (Auto) 0.0 x10^3/uL (0.0-0.2) Sodium Level 135 mmol/L (136-145) Potassium Level 3.6 mmol/L (3.5-5.1) Chloride Level 98 mmol/L (98-107) Carbon Dioxide Level 23 mmol/L (21-32) Anion Gap 14 (6-14) Blood Urea Nitrogen 80 mg/dL (7-20) Creatinine 2.1 mg/dL (0.6-1.0) Estimated GFR (Cockcroft-Gault) 25.0 Glucose Level 167 mg/dL (70-99) Calcium Level 9.0 mg/dL (8.5-10.1) Magnesium Level 2.2 mg/dL (1.8-2.4) Triglycerides Level 245 mg/dL (0-150) Laboratory Tests Test 07/31/19 12:00 07/31/19 12:42 07/31/19 17:53 08/01/19 00:02 Urine Collection Type Unknown Urine Color Brown Urine Clarity Cloudy Urine pH 5.0 (<5.0-8.0) Urine Specific [place] >=1.030 (1.000-1.030) Urine Protein 100 mg/dL (NEG-TRACE) Urine Glucose (UA) 100 mg/dL (NEG) Urine Ketones (Stick) Trace mg/dL (NEG) Urine Blood Large (NEG) Urine Nitrite Positive (NEG) Urine Bilirubin Small (NEG) Urine Urobilinogen Dipstick 1.0 mg/dL (0.2 mg/dL) Urine Leukocyte Esterase Small (NEG) Urine RBC >40 /HPF (0-2) Urine WBC 1-4 /HPF (0-4) Urine Squamous Epithelial Cells Occ /LPF Urine Transitional Epithelial Cells Few /LPF Urine Amorphous Sediment Present /HPF Urine Bacteria Few /HPF (0-FEW) Urine Hyaline Casts Few /HPF Urine Mucus Slight /LPF Glucose (Fingerstick) 223 mg/dL (70-99) 166 mg/dL (70-99) 201 mg/dL (70-99) Test 08/01/19 06:09 08/01/19 06:10 Glucose (Fingerstick) 175 mg/dL (70-99) White Blood Count 5.3 x10^3/uL (4.0-11.0) Red Blood Count 2.48 x10^6/uL (3.50-5.40) Hemoglobin 8.0 g/dL (12.0-15.5) Hematocrit 24.3 % (36.0-47.0) Mean Corpuscular Volume 98 fL (79-100) Mean Corpuscular Hemoglobin 32 pg (25-35) Mean Corpuscular Hemoglobin Concent 33 g/dL (31-37) Red Cell Distribution Width 19.3 % (11.5-14.5) Platelet Count 318 x10^3/uL (140-400) Neutrophils (%) (Auto) 76 % (31-73) Lymphocytes (%) (Auto) 10 % (24-48) Monocytes (%) (Auto) 12 % (0-9) Eosinophils (%) (Auto) 2 % (0-3) Basophils (%) (Auto) 0 % (0-3) Neutrophils # (Auto) 4.0 x10^3/uL (1.8-7.7) Lymphocytes # (Auto) 0.5 x10^3/uL (1.0-4.8) Monocytes # (Auto) 0.6 x10^3/uL (0.0-1.1) Eosinophils # (Auto) 0.1 x10^3/uL (0.0-0.7) Basophils # (Auto) 0.0 x10^3/uL (0.0-0.2) Sodium Level 135 mmol/L (136-145) Potassium Level 3.6 mmol/L (3.5-5.1) Chloride Level 98 mmol/L (98-107) Carbon Dioxide Level 23 mmol/L (21-32) Anion Gap 14 (6-14) Blood Urea Nitrogen 80 mg/dL (7-20) Creatinine 2.1 mg/dL (0.6-1.0) Estimated GFR (Cockcroft-Gault) 25.0 Glucose Level 167 mg/dL (70-99) Calcium Level 9.0 mg/dL (8.5-10.1) Magnesium Level 2.2 mg/dL (1.8-2.4) Triglycerides Level 245 mg/dL (0-150) Problem List Problems Medical Problems: (1) Acute pancreatitis Status: Acute (2) Cholelithiasis Status: Acute Assessment/Plan supportive care MARV WYNNE MD 08/01/19 1214: SURGICAL PROGRESS NOTE Assessment/Plan pt seen in ICU/dialysis eyes open, does not engage no new issues per RN continue supportive care 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 APRN Aug 01, 2019 09:30 MARV WYNNE MD Aug 01, 2019 12:14
[2019-08-01] MEDS ORDERED: IV NORMAL SALINE 1000ML BAG 1,000 ML IV PRN ×2 (09:35)
[2019-08-01] MEDS ORDERED: diphenhydrAMINE 50 MG/ML VIAL IV PRN ×2 (09:45)
[2019-08-01] MEDS ORDERED: ALBUMIN HUMAN 25% 200 ML IV PRN (09:45)
[2019-08-01] MEDS ORDERED: DIALYSIS PATIENT. MC PRN (09:45)
--- NOTE | 2019-08-01 11:25 | PDOC ---
Renal-Progress Notes Subjective Notes Notes NONE History of Present Illness Hx of present illness INTUBATED Vitals Vitals Vital Signs Date Time Temp Pulse Resp B/P (MAP) Pulse Ox O2 Delivery O2 Flow Rate FiO2 08/01/19 09:00 109 25 131/78 (95) 98 Ventilator 08/01/19 07:00 98.3 98.3 Weight Weight [ ] I.O. Intake and Output Intake and Output 08/01/19 07:00 Intake Total 2729.0 ml Output Total 966 ml Balance 1763.0 ml Intake Oral 0 ml IV Total 2729.0 ml Output Urine Total 366 ml Stool Total 100 ml Gastric Drainage Total 500 ml Labs Labs Laboratory Tests Test 07/31/19 12:00 07/31/19 12:42 07/31/19 17:53 08/01/19 00:02 Urine Collection Type Unknown Urine Color Brown Urine Clarity Cloudy Urine pH 5.0 (<5.0-8.0) Urine Specific [place] >=1.030 (1.000-1.030) Urine Protein 100 mg/dL (NEG-TRACE) Urine Glucose (UA) 100 mg/dL (NEG) Urine Ketones (Stick) Trace mg/dL (NEG) Urine Blood Large (NEG) Urine Nitrite Positive (NEG) Urine Bilirubin Small (NEG) Urine Urobilinogen Dipstick 1.0 mg/dL (0.2 mg/dL) Urine Leukocyte Esterase Small (NEG) Urine RBC >40 /HPF (0-2) Urine WBC 1-4 /HPF (0-4) Urine Squamous Epithelial Cells Occ /LPF Urine Transitional Epithelial Cells Few /LPF Urine Amorphous Sediment Present /HPF Urine Bacteria Few /HPF (0-FEW) Urine Hyaline Casts Few /HPF Urine Mucus Slight /LPF Glucose (Fingerstick) 223 mg/dL (70-99) 166 mg/dL (70-99) 201 mg/dL (70-99) Test 08/01/19 06:09 08/01/19 06:10 Glucose (Fingerstick) 175 mg/dL (70-99) White Blood Count 5.3 x10^3/uL (4.0-11.0) Red Blood Count 2.48 x10^6/uL (3.50-5.40) Hemoglobin 8.0 g/dL (12.0-15.5) Hematocrit 24.3 % (36.0-47.0) Mean Corpuscular Volume 98 fL (79-100) Mean Corpuscular Hemoglobin 32 pg (25-35) Mean Corpuscular Hemoglobin Concent 33 g/dL (31-37) Red Cell Distribution Width 19.3 % (11.5-14.5) Platelet Count 318 x10^3/uL (140-400) Neutrophils (%) (Auto) 76 % (31-73) Lymphocytes (%) (Auto) 10 % (24-48) Monocytes (%) (Auto) 12 % (0-9) Eosinophils (%) (Auto) 2 % (0-3) Basophils (%) (Auto) 0 % (0-3) Neutrophils # (Auto) 4.0 x10^3/uL (1.8-7.7) Lymphocytes # (Auto) 0.5 x10^3/uL (1.0-4.8) Monocytes # (Auto) 0.6 x10^3/uL (0.0-1.1) Eosinophils # (Auto) 0.1 x10^3/uL (0.0-0.7) Basophils # (Auto) 0.0 x10^3/uL (0.0-0.2) Sodium Level 135 mmol/L (136-145) Potassium Level 3.6 mmol/L (3.5-5.1) Chloride Level 98 mmol/L (98-107) Carbon Dioxide Level 23 mmol/L (21-32) Anion Gap 14 (6-14) Blood Urea Nitrogen 80 mg/dL (7-20) Creatinine 2.1 mg/dL (0.6-1.0) Estimated GFR (Cockcroft-Gault) 25.0 Glucose Level 167 mg/dL (70-99) Calcium Level 9.0 mg/dL (8.5-10.1) Magnesium Level 2.2 mg/dL (1.8-2.4) Triglycerides Level 245 mg/dL (0-150) Micro Micro Microbiology 07/29/19 Blood Culture - Preliminary, Resulted NO GROWTH AFTER 2 DAYS 07/23/19 Urine Culture - Final, Complete 07/23/19 Urine Culture Result 1 (ALEXANDRA) - Final, Complete Review of Systems Constitutional: yes: other (ON THE VENT) Physical Exam General Appearance: other (ON THE VENT) Skin: warm Respiratory: decreased breath sounds Heart: S1S2 Abdomen: soft, bowel sounds present Genitourinary: bladder flat Extremities: pulses present, edema Neurology: other (SEDATED) Assessment Assessment IMP AKM-DXO-ALEGIO-OFF CRRT ANEMIA LEUCOCYTOSIS-IMPROVING ANASARCA DUE TO 3RD SPACING HYPERKALEMIA-RESOLVED ACIDOSIS AND ACIDEMIA-CONTROLLED ACUTE REPS FAILURE ACUTE PANCREATITIS HYPOALBUMINEMIA HYPOCALCEMIA-FROM SAPONIFICATION-BETTER POOR HD CATHETER FUNCTION PLAN HD TODAY UF TO DW TPN TO CONTINUE NEEDED PRBC NEEDED TREAT LOW CA ONLY FOR ARRHYTHMIA OR SYMPTOMS CONT HIRAM VENT SUPPORT PRESSORS NEEDED ANTIBIOTICS WILL FOLLOW VERY POOR PROGNOSIS DONI GARCIA MD Aug 01, 2019 11:25
--- NOTE | 2019-08-01 12:14 | PDOC ---
Objective: Objective: D/w nurse - no change, still bilious OG output. D/w dialysis nurse - ?a little awake, hypotensive. Vital Signs: Vital Signs Date Time Temp Pulse Resp B/P (MAP) Pulse Ox O2 Delivery O2 Flow Rate FiO2 08/01/19 09:00 109 25 131/78 (95) 98 Ventilator 08/01/19 07:00 98.3 98.3 Labs: Laboratory Tests Test 07/31/19 12:42 07/31/19 17:53 08/01/19 00:02 08/01/19 06:09 Glucose (Fingerstick) 223 mg/dL 166 mg/dL 201 mg/dL 175 mg/dL Test 08/01/19 06:10 White Blood Count 5.3 x10^3/uL Red Blood Count 2.48 x10^6/uL Hemoglobin 8.0 g/dL Hematocrit 24.3 % Mean Corpuscular Volume 98 fL Mean Corpuscular Hemoglobin 32 pg Mean Corpuscular Hemoglobin Concent 33 g/dL Red Cell Distribution Width 19.3 % Platelet Count 318 x10^3/uL Neutrophils (%) (Auto) 76 % Lymphocytes (%) (Auto) 10 % Monocytes (%) (Auto) 12 % Eosinophils (%) (Auto) 2 % Basophils (%) (Auto) 0 % Neutrophils # (Auto) 4.0 x10^3/uL Lymphocytes # (Auto) 0.5 x10^3/uL Monocytes # (Auto) 0.6 x10^3/uL Eosinophils # (Auto) 0.1 x10^3/uL Basophils # (Auto) 0.0 x10^3/uL Sodium Level 135 mmol/L Potassium Level 3.6 mmol/L Chloride Level 98 mmol/L Carbon Dioxide Level 23 mmol/L Anion Gap 14 Blood Urea Nitrogen 80 mg/dL Creatinine 2.1 mg/dL Estimated GFR (Cockcroft-Gault) 25.0 Glucose Level 167 mg/dL Calcium Level 9.0 mg/dL Magnesium Level 2.2 mg/dL Triglycerides Level 245 mg/dL BLOOD CULTURE Preliminary NO GROWTH AFTER 2 DAYS Imaging: CXR 07/31 FINDINGS: Tracheostomy. Left subclavian central venous catheter tip distal SVC. Right PICC line tip SVC. Right jugular dialysis catheter tip lower right atrium although could extend to the atrial junction with the IVC. Heart size stable. No pneumothorax. Hyperexpansion of the lungs. Perihilar and lower lobe opacities obscuring the diaphragms likely due to mild left and mild basilar right layering pleural effusions. This is grossly stable. IMPRESSION: Lines and tubes as described above. No pneumothorax. Perihilar and lower lobe opacities likely edema and right greater than left layering pleural effusions as described above. Superimposed lower lobe pneumonia not excluded. PE: GEN: dialyzing HEENT: OG bilious, tracheostomy LUNGS: clear ABD: distended, rectal tube w/ dark liquid NEURO/PSYCH: sedated A/P: Gallstone pancreatitis - necrotizing w/ phlegmon MOSF - s/p tracheostomy, requires dialysis Anemia - transfused again 07/30 -- Continue support. Hemodynamically unstable?: No Is patient in severe pain?: No Is NPO status required?: Yes CYNDEE FACLON Aug 01, 2019 12:14
--- NOTE | 2019-08-01 13:04 | NUR ---
SW following. Discussed with RN, pt from home. Vent/ trach/ TPN/ HD. SW will continue to follow.
[2019-08-01] MEDS: TPN PER PHARMACY MC PRN (13:34)
[2019-08-01] MEDS: MEROPENEM 500 MG in IV NORMAL SALINE 50ML 50 ML IV SCH ×2 (14:06→22:03)
[2019-08-01] MEDS: MICAFUNGIN 100 MG in IV DEXTROSE 5% 100ML 100 ML IV SCH (14:06)
[2019-08-01] MEDS ORDERED: FUROSEMIDE 40 MG/4 ML VIAL. IVP ONE (14:30)
[2019-08-01 15:18] LABS: BASE EXCESS ABG 2 mmol/L (-3-3); HCO3 ABG 26 mmol/L (21-28); PCO2 ABG 38 mmHg (35-46); PO2 ABG 74 mmHg (75-108); SAT O2 ABG 94 % (92-99)
[2019-08-01 15:20] LABS: FIO2 ABG 35
--- NOTE | 2019-08-01 16:15 | NUR ---
pt had dialysis this am. returned to icu room at 1400. pt started on cpap trial. pt became fatiqued, decreased tidal volumes to 250- 275. abg completed and pt returned to original vent settings. pt sitting in a chair position in bed after trach care and oral care completed. pt tolerated well with precedex continued at 1 mcg/kg/min for anxiety and fentanyl for pain with her acute pancreatitis at 75 mcg/hour. pt tracking with eyes and able to lift arms off of bed about 4 inches. pt wiggled feet on command.
--- NOTE | 2019-08-01 17:32 | NUR ---
Pharmacy TPN Dosing Note S: SCOTT AVILA is a 48 year old F Currently receiving Central Continuous TPN started 07/06/19 B:Pertinent PMH: Necrotizing pancreatitis Height: 5 feet, 8 inches Weight: 102.752245 kg Current diet: NPO LABS: Sodium: 135 Potassium: 3.6 Chloride: 98 Calcium: 9.0 Corrected Calcium: 9.88 Magnesium: 2.1 CO2: 23 SCr: 2.1 Glucose: 175 Albumin: 2.9 AST: 47 ALT: 20 TPN FORMULA: TPN TYPE: Central Continuous AMINO ACIDS: 125 gm DEXTROSE: 225 gm LIPIDS: 20 gm SODIUM CHLORIDE: 100 mEq SODIUM ACETATE: -- mEq SODIUM PHOSPHATE: - mmol POTASSIUM CHLORIDE: 20 mEq POTASSIUM ACETATE: -- mEq POTASSIUM PHOSPHATE: 19 mmol MAGNESIUM: 12 mEq CALCIUM: 15 mEq INSULIN: 40 units MULTIPLE VITAMIN: 10 ml TRACE ELEMENTS: 0.5 ml(s) TPN PLAN: Triglycerides decrease to 245. add kcl 20 meq/bag, up nacl to 100 meq. R: Continue TPN AT SAME RATE Will monitor electrolytes, glucose, and tolerance to TPN. KRISTIAN APODACA [facility] [place], 08/01/19 0517
[2019-08-01] MEDS ORDERED: TOTAL PARENTERAL NUTRITION IV SCH ×11 (22:00)
[2019-08-01] MEDS ORDERED: AMINO ACID IV SCH ×11 (22:00)
[2019-08-01] MEDS ORDERED: DEXTROSE 70% IV SCH ×11 (22:00)
[2019-08-01] MEDS ORDERED: [UNRECOGNIZED DRUG - OTHER] IV SCH ×11 (22:00)
[2019-08-02] VITALS (23 sets, daily range): BP systolic 101–165; BP diastolic 55–102
[2019-08-02] MEDS: DEXMEDETOMIDINE 400 MCG in IV NORMAL SALINE 100ML 96 ML IV PRN ×7 (01:04→22:28)
[2019-08-02] MEDS: INSULIN LISPRO 300 UNITS/3 ML VIAL. SQ SCH ×5 (01:10→23:38)
--- NOTE | 2019-08-02 07:47 | PDOC ---
Infectious Disease Note Subjective Subjective Alert Trach, vent FiO2 35 % PEEP 5 Now off levaphed Fever Tmax 100.2 less diarrhea TPN ROS ROS unable to obtain Vital Sign Vital Signs Vital Signs Date Time Temp Pulse Resp B/P (MAP) Pulse Ox O2 Delivery O2 Flow Rate FiO2 08/02/19 07:37 100 Ventilator 08/02/19 07:00 100.2 116 26 160/84 (109) 100.2 Physical Exam PHYSICAL EXAM GENERAL: Alert but not responsive/agitated some . Feels warm - has generalized anasarca HEENT: Pupils equal, + NGT, oral cavity dry NECK: Trach/vent LUNGS: Diminished aeration HEART: S1, S2, regular ABDOMEN: Distended, hypoactive BS, Rectal tube- out : [place] (07/04) EXTREMITIES: Generalized edema, no cyanosis, SCDs bilaterally DERMATOLOGIC: Warm and dry. No generalized rash. CENTRAL NERVOUS SYSTEM: Opens eyes HDC, LIJ(07/24) and RUE-PICC without signs of complications Labs Lab Laboratory Tests Test 08/01/19 14:11 08/01/19 15:00 08/01/19 18:26 08/02/19 01:07 Glucose (Fingerstick) 151 mg/dL (70-99) 213 mg/dL (70-99) 174 mg/dL (70-99) O2 Saturation 94 % (92-99) Arterial Blood pH 7.46 (7.35-7.45) Arterial Blood pCO2 at Patient Temp 38 mmHg (35-46) Arterial Blood pO2 at Patient Temp 74 mmHg (75-108) Arterial Blood HCO3 26 mmol/L (21-28) Arterial Blood Base Excess 2 mmol/L (-3-3) FiO2 35 Test 08/02/19 06:39 Glucose (Fingerstick) 157 mg/dL (70-99) Micro CT A/P, 07/27 IMPRESSION: 1. Increased ascites. 2. 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 Cholelithiasis with thickening of the gallbladder wall. 4. Persistent pleural effusions and atelectasis in the lung bases. Objective Assessment No labs as PICC and IJ not drawing and peripheral stick also unsuccessful Leukocytosis 07/28 -improved Fever -blood cults 07/28 neg. Severe acute gallstone pancreatitis with necrosis -CT 07/27 necrotizing pancreatitis with fluid and phlegmon at the pancreas -not a surgical candidate at this time Hypotension off levaphed JUANA requiring HD - s/p RIJ temporary dialysis catheter replacement, 4/ Vent dependent respiratory failure -s/p Trach placement -lung opacities, COVID-19 neg Anasarca - worse Anemia - S/p PRBC 07/13 Hypocalcemia Prediabetes HTN Diarrhea, C. diff neg 07/10 Anemia - S/p PRBCs Plan Plan of Care With fever get Blood cults Change lines and lou[place] today CT Chest/abd/pelvis cont merrem (07/26) and Zyvox (07/28) and micafungin Add Flagyl -previously on cefepime, flagyl & dapto Gen surgery following f/u BC from 07/27 neg to date Maintain aspiration precautions Anemia deferred to primary Critically ill D/w Dr. Villanueva D/w nursing WILLY BARAKAT MD Aug 02, 2019 07:47
--- NOTE | 2019-08-02 07:57 | RAD ---
CHEST AP ONLY INDICATION: Respiratory failure. COMPARISON STUDY: 08/01/2019. FINDINGS: Life Support Devices: Tracheostomy. Enteric tube. Left IJ central venous catheter. Right PICC. Lungs: Low lung volume. Stable bilateral basilar predominant hazy opacities. Pleura: Stable moderate pleural effusions. Heart and Mediastinum: Stable cardiomediastinal silhouette and great vessels. IMPRESSION: 1. Stable life support devices. 2. Stable moderate pleural effusions and bilateral hazy opacities. Electronically signed by: Bry Michel MD (08/02/2019 7:54 AM) [id number]
[2019-08-02] MEDS ORDERED: IV NORMAL SALINE 1000ML BAG 1,000 ML IV PRN ×2 (08:00)
[2019-08-02] MEDS ORDERED: ALBUMIN HUMAN 25% 200 ML IV PRN (08:00)
[2019-08-02] MEDS: PANTOPRAZOLE IV PUSH 40 MG VIAL. IVP SCH (08:01)
[2019-08-02] MEDS: ACETAMINOPHEN 650 MG SUPP.RECT. PR PRN (08:01)
[2019-08-02] MEDS: HEPARIN for SUB-Q USE 5,000 UNIT/ML VIAL. SQ SCH ×2 (08:03→20:48)
--- NOTE | 2019-08-02 08:15 | PDOC ---
PROGRESS NOTES Chief Complaint Chief Complaint Respiratory failure requiring mechanical ventilation (on vent since 07/10) bilateral pleural effusions/pulm edema Sepsis Severe Acute gallstone pancreatitis (not a surgical candidate at this time) with necrosis Acute kidney failure now requiring dialysis Salpingitis Gallstones (Calculus of gallbladder with acute cholecystitis without obstruction) HTN Leukocytosis Hypoxia Uterine fibroid Intractable pain Intractable nausea Covid 19 negative. Acute on chronic anemia EEG: No seizure activity. ESRD on HD Hyperglycemia, persistently in 200s History of Present Illness History of Present Illness Ms Diaz is a 48yo F w/ PMHx HTN, prediabetes who presented to the emergency room with complaints of abdominal pain on 07/04/2019. Found with Lipase 43548, AST 401, ALT 249, Bilirubin 1.4. CT abdomen confirms pancreatic inflammation, peripancreatic fluid and inflammatory changes around the pancreas consistent with pancreatitis. Cholelithiasis and 1.4cm uterine fibroid as well as possible left salpingitis. Admitted for further care GI, General surgery, ID, Pulm consulted. 07/04: No urine output. Added dilaudid for pain, PICC placed per IR. Renal US negative.Seen bedside in ICU, given 2L additional NSS and albumin infusion. Still hypotensive, started on levophed. Repeat CT abdomen with necrosis. 07/05: O2 saturation 87% on nasal cannula oxygen. Dialysis catheter per nephrology 07/06: She is now on BiPAP appears more ill, now on dialysis 07/07: Seen on BiPAP. Her mother and another family member are present and seemed to be good support for her. Currently on dialysis. Appears critically ill 07/08: Overnight Tmax 101.7 , still on BiPAP FiO2 40%, still on low dose Levophed gtt, TPN initiated. On dialysis 07/24: Tracheostomy 07/30: S/p tracheostomy on vent spontaneous respirations with 5 of pressure support 35% FiO2, rectal tube and a Lind, off pressors 07/31: Off pressors. Seen on dialysis this morning. BUN 80. Tracking with her eyes. Still on vent via trach. BUN 68, Cr 1.7. Temp 100.2F axillary. WBC 9.8. Still on vent via trach. Tracking reasonably well. In obvious discomfort. Plan: Fungal cultures, remove PICC and IJ. D/w IR to replace left IJ CT chest/abd/pelvis Vitals Vitals Vital Signs Date Time Temp Pulse Resp B/P (MAP) Pulse Ox O2 Delivery O2 Flow Rate FiO2 08/02/19 08:03 24 98 Ventilator 08/02/19 07:00 100.2 116 160/84 (109) 100.2 Physical Exam General: Other (eyes open) Heart: Other (increased rate) Lungs: Other (dimished in BLL) Abdomen: Soft, Other (distended ) Extremities: No edema, Other (SOME CLUBBING ) Skin: Other (mottling noted to extremities ) Labs LABS Laboratory Tests Test 08/01/19 14:11 08/01/19 15:00 08/01/19 18:26 08/02/19 01:07 Glucose (Fingerstick) 151 mg/dL (70-99) 213 mg/dL (70-99) 174 mg/dL (70-99) O2 Saturation 94 % (92-99) Arterial Blood pH 7.46 (7.35-7.45) Arterial Blood pCO2 at Patient Temp 38 mmHg (35-46) Arterial Blood pO2 at Patient Temp 74 mmHg (75-108) Arterial Blood HCO3 26 mmol/L (21-28) Arterial Blood Base Excess 2 mmol/L (-3-3) FiO2 35 Test 08/02/19 06:39 Glucose (Fingerstick) 157 mg/dL (70-99) Assessment and Plan Assessmemt and Plan Problems Medical Problems: (1) Acute pancreatitis Status: Acute (2) Cholelithiasis Status: Acute Comment Review of Relevant I have reviewed the following items kolby (where applicable) has been applied. Labs Laboratory Tests Test 07/31/19 12:00 07/31/19 12:42 07/31/19 17:53 08/01/19 00:02 Urine Collection Type Unknown Urine Color Brown Urine Clarity Cloudy Urine pH 5.0 (<5.0-8.0) Urine Specific [place] >=1.030 (1.000-1.030) Urine Protein 100 mg/dL (NEG-TRACE) Urine Glucose (UA) 100 mg/dL (NEG) Urine Ketones (Stick) Trace mg/dL (NEG) Urine Blood Large (NEG) Urine Nitrite Positive (NEG) Urine Bilirubin Small (NEG) Urine Urobilinogen Dipstick 1.0 mg/dL (0.2 mg/dL) Urine Leukocyte Esterase Small (NEG) Urine RBC >40 /HPF (0-2) Urine WBC 1-4 /HPF (0-4) Urine Squamous Epithelial Cells Occ /LPF Urine Transitional Epithelial Cells Few /LPF Urine Amorphous Sediment Present /HPF Urine Bacteria Few /HPF (0-FEW) Urine Hyaline Casts Few /HPF Urine Mucus Slight /LPF Glucose (Fingerstick) 223 mg/dL (70-99) 166 mg/dL (70-99) 201 mg/dL (70-99) Test 08/01/19 06:09 08/01/19 06:10 08/01/19 14:11 08/01/19 15:00 Glucose (Fingerstick) 175 mg/dL (70-99) 151 mg/dL (70-99) White Blood Count 5.3 x10^3/uL (4.0-11.0) Red Blood Count 2.48 x10^6/uL (3.50-5.40) Hemoglobin 8.0 g/dL (12.0-15.5) Hematocrit 24.3 % (36.0-47.0) Mean Corpuscular Volume 98 fL (79-100) Mean Corpuscular Hemoglobin 32 pg (25-35) Mean Corpuscular Hemoglobin Concent 33 g/dL (31-37) Red Cell Distribution Width 19.3 % (11.5-14.5) Platelet Count 318 x10^3/uL (140-400) Neutrophils (%) (Auto) 76 % (31-73) Lymphocytes (%) (Auto) 10 % (24-48) Monocytes (%) (Auto) 12 % (0-9) Eosinophils (%) (Auto) 2 % (0-3) Basophils (%) (Auto) 0 % (0-3) Neutrophils # (Auto) 4.0 x10^3/uL (1.8-7.7) Lymphocytes # (Auto) 0.5 x10^3/uL (1.0-4.8) Monocytes # (Auto) 0.6 x10^3/uL (0.0-1.1) Eosinophils # (Auto) 0.1 x10^3/uL (0.0-0.7) Basophils # (Auto) 0.0 x10^3/uL (0.0-0.2) Sodium Level 135 mmol/L (136-145) Potassium Level 3.6 mmol/L (3.5-5.1) Chloride Level 98 mmol/L (98-107) Carbon Dioxide Level 23 mmol/L (21-32) Anion Gap 14 (6-14) Blood Urea Nitrogen 80 mg/dL (7-20) Creatinine 2.1 mg/dL (0.6-1.0) Estimated GFR (Cockcroft-Gault) 25.0 Glucose Level 167 mg/dL (70-99) Calcium Level 9.0 mg/dL (8.5-10.1) Magnesium Level 2.2 mg/dL (1.8-2.4) Triglycerides Level 245 mg/dL (0-150) O2 Saturation 94 % (92-99) Arterial Blood pH 7.46 (7.35-7.45) Arterial Blood pCO2 at Patient Temp 38 mmHg (35-46) Arterial Blood pO2 at Patient Temp 74 mmHg (75-108) Arterial Blood HCO3 26 mmol/L (21-28) Arterial Blood Base Excess 2 mmol/L (-3-3) FiO2 35 Test 08/01/19 18:26 08/02/19 01:07 08/02/19 06:39 Glucose (Fingerstick) 213 mg/dL (70-99) 174 mg/dL (70-99) 157 mg/dL (70-99) Laboratory Tests Test 08/01/19 14:11 08/01/19 15:00 08/01/19 18:26 08/02/19 01:07 Glucose (Fingerstick) 151 mg/dL (70-99) 213 mg/dL (70-99) 174 mg/dL (70-99) O2 Saturation 94 % (92-99) Arterial Blood pH 7.46 (7.35-7.45) Arterial Blood pCO2 at Patient Temp 38 mmHg (35-46) Arterial Blood pO2 at Patient Temp 74 mmHg (75-108) Arterial Blood HCO3 26 mmol/L (21-28) Arterial Blood Base Excess 2 mmol/L (-3-3) FiO2 35 Test 08/02/19 06:39 Glucose (Fingerstick) 157 mg/dL (70-99) Microbiology 07/29/19 Blood Culture - Preliminary, Resulted NO GROWTH AFTER 3 DAYS 07/23/19 Urine Culture - Final, Complete 07/23/19 Urine Culture Result 1 (ALEXANDRA) - Final, Complete Medications Current Medications Sodium Chloride 1,000 ml @ 1,000 mls/hr Q1H IV Last administered on 07/04/19at 03:00; Start 07/04/19 at 03:00; Stop 07/04/19 at 03:59; Status DC Ondansetron HCl (Zofran) 4 mg 1X ONCE IVP Last administered on 07/04/19at 03:27; Start 07/04/19 at 03:00; Stop 07/04/19 at 03:01; Status DC Morphine Sulfate (Morphine Sulfate) 4 mg 1X ONCE IV ; Start 07/04/19 at 03:00; Stop 07/04/19 at 03:01; Status Cancel Ketorolac Tromethamine (Toradol 30mg Vial) 30 mg 1X ONCE IV Last administered on 07/04/19at 02:54; Start 07/04/19 at 03:00; Stop 07/04/19 at 03:01; Status DC Fentanyl Citrate (Fentanyl 2ml Vial) 25 mcg 1X ONCE IVP Last administered on 07/04/19at 03:23; Start 07/04/19 at 03:30; Stop 07/04/19 at 03:31; Status DC Fentanyl Citrate (Fentanyl 2ml Vial) 100 mcg STK-MED ONCE .ROUTE ; Start 07/04/19 at 03:18; Stop 07/04/19 at 03:18; Status DC Iohexol (Omnipaque 350 Mg/ml) 90 ml 1X ONCE IV Last administered on 07/04/19at 03:25; Start 07/04/19 at 03:30; Stop 07/04/19 at 03:31; Status DC Info (CONTRAST GIVEN -- Rx MONITORING) 1 each PRN DAILY PRN MC SEE COMMENTS; Start 07/04/19 at 03:30; Stop 07/06/19 at 03:29; Status DC Hydromorphone HCl (Dilaudid) 0.5 mg 1X ONCE IV Last administered on 07/04/19at 03:55; Start 07/04/19 at 04:30; Stop 07/04/19 at 04:32; Status DC Ondansetron HCl (Zofran) 4 mg PRN Q8HRS PRN IV NAUSEA/VOMITING 1ST CHOICE; Start 07/04/19 at 05:00; Stop 07/04/19 at 09:27; Status DC Morphine Sulfate (Morphine Sulfate) 2 mg PRN Q2HR PRN IV SEVERE PAIN 7-10 Last administered on 07/05/19at 12:26; Start 07/04/19 at 05:00; Stop 07/05/19 at 14:15; Status DC Sodium Chloride 1,000 ml @ 125 mls/hr Q8H IV Last administered on 07/04/19at 20:56; Start 07/04/19 at 05:00; Stop 07/05/19 at 04:59; Status DC Hydromorphone HCl (Dilaudid) 0.5 mg PRN Q3HRS PRN IV SEVERE PAIN 7-10 Last administered on 07/05/19at 10:06; Start 07/04/19 at 05:00; Stop 07/05/19 at 12:01; Status DC Piperacillin Sod/ Tazobactam Sod 4.5 gm/Sodium Chloride 100 ml @ 200 mls/hr 1X ONCE IV Last administered on 07/04/19at 05:44; Start 07/04/19 at 06:00; Stop 07/04/19 at 06:29; Status DC Ondansetron HCl (Zofran) 4 mg PRN Q4HRS PRN IV NAUSEA/VOMITING 1ST CHOICE Last administered on 07/31/19at 09:56; Start 07/04/19 at 09:30 Insulin Human Lispro (HumaLOG) 0-9 UNITS Q6HRS SQ Last administered on 08/02/19 at 06:42; Start 07/04/19 at 09:30 Dextrose (Dextrose 50%-Water Syringe) 12.5 gm PRN Q15MIN PRN IV SEE COMMENTS; Start 07/04/19 at 09:30 Pantoprazole Sodium (PROTONIX VIAL for IV PUSH) 40 mg DAILYAC IVP Last administered on 08/02/19at 08:01; Start 07/04/19 at 11:30 Prochlorperazine Edisylate (Compazine) 10 mg PRN Q6HRS PRN IV NAUSEA/VOMITING, 2nd CHOICE Last administered on 07/05/19at 00:42; Start 07/04/19 at 17:45 Atenolol (Tenormin) 100 mg DAILY PO ; Start 07/05/19 at 09:00; Stop 07/04/19 at 20:08; Status DC Metoprolol Tartrate (Lopressor Vial) 2.5 mg Q6HRS IVP Last administered on 07/05/19at 05:51; Start 07/04/19 at 20:15; Stop 07/05/19 at 10:02; Status DC Metoprolol Tartrate (Lopressor Vial) 5 mg Q6HRS IVP Last administered on 07/14/19at 00:12; Start 07/05/19 at 10:15; Stop 07/16/19 at 08:48; Status DC Hydromorphone HCl (Dilaudid) 1 mg PRN Q3HRS PRN IV SEVERE PAIN 7-10 Last a dministered on 07/11/19at 05:13; Start 07/05/19 at 12:00; Stop 07/19/19 at 00:25; Status DC Lidocaine HCl (Buffered Lidocaine 1%) 3 ml STK-MED ONCE .ROUTE ; Start 07/05/19 at 12:55; Stop 07/05/19 at 12:56; Status DC Albumin Human 500 ml @ 125 mls/hr 1X ONCE IV Last administered on 07/05/19at 14:33; Start 07/05/19 at 14:30; Stop 07/05/19 at 18:32; Status DC Norepinephrine Bitartrate 8 mg/ Dextrose 258 ml @ 17.299 mls/ hr CONT PRN IV PER PROTOCOL Last administered on 07/29/19at 13:31; Start 07/05/19 at 15:30 Sodium Chloride 1,000 ml @ 125 mls/hr Q8H IV Last administered on 07/05/19at 21:04; Start 07/05/19 at 16:00; Stop 07/06/19 at 02:42; Status DC Albumin Human 500 ml @ 125 mls/hr PRN BID PRN IV After every 2L NSS & BP < 90mm Last administered on 07/20/19at 14:21; Start 07/05/19 at 16:00 Iohexol (Omnipaque 300 Mg/ml) 60 ml 1X ONCE IV Last administered on 07/05/19at 17:20; Start 07/05/19 at 17:00; Stop 07/05/19 at 17:01; Status DC Info (CONTRAST GIVEN -- Rx MONITORING) 1 each PRN DAILY PRN MC SEE COMMENTS; Start 07/05/19 at 17:00; Stop 07/07/19 at 16:59; Status DC Meropenem 1 gm/ Sodium Chloride 100 ml @ 200 mls/hr Q8HRS IV Last administered on 07/06/19at 05:45; Start 07/05/19 at 20:00; Stop 07/06/19 at 08:48; Status DC Furosemide (Lasix) 40 mg 1X ONCE IVP Last administered on 07/05/19at 22:12; Start 07/05/19 at 22:30; Stop 07/05/19 at 22:31; Status DC Calcium Chloride 1000 mg/Sodium Chloride 110 ml @ 220 mls/hr 1X ONCE IV Last administered on 07/05/19at 22:11; Start 07/05/19 at 22:30; Stop 07/05/19 at 22:59; Status DC Albuterol Sulfate (Ventolin Neb Soln) 2.5 mg 1X ONCE NEB Last administered on 07/06/19at 00:56; Start 07/05/19 at 22:30; Stop 07/05/19 at 22:31; Status DC Insulin Human Regular (HumuLIN R VIAL) 5 unit 1X ONCE IV Last administered on 07/05/19at 22:14; Start 07/05/19 at 22:30; Stop 07/05/19 at 22:31; Status DC Magnesium Sulfate 50 ml @ 25 mls/hr 1X ONCE IV Last administered on 07/06/19at 02:57; Start 07/06/19 at 03:00; Stop 07/06/19 at 04:59; Status DC Calcium Gluconate 1000 mg/Sodium Chloride 110 ml @ 220 mls/hr 1X ONCE IV Last administered on 07/06/19at 02:46; Start 07/06/19 at 03:00; Stop 07/06/19 at 03:29; Status DC Sodium Chloride 1,000 ml @ 200 mls/hr Q5H IV Last administered on 07/06/19at 02:46; Start 07/06/19 at 03:00; Stop 07/06/19 at 10:21; Status DC Calcium Gluconate 1000 mg/Sodium Chloride 110 ml @ 220 mls/hr 1X ONCE IV Last administered on 07/06/19at 03:21; Start 07/06/19 at 03:30; Stop 07/06/19 at 03:59; Status DC Sodium Bicarbonate 50 meq/Sodium Chloride 1,050 ml @ 75 mls/hr Q14H IV Last administered on 07/10/19at 21:10; Start 07/06/19 at 07:30; Stop 07/11/19 at 10:28; Status DC Calcium Gluconate 2000 mg/Sodium Chloride 120 ml @ 220 mls/hr 1X ONCE IV Last administered on 07/06/19at 09:05; Start 07/06/19 at 07:30; Stop 07/06/19 at 08:02; Status DC Lidocaine HCl (Xylocaine-Mpf 1% 2ml Vial) 2 ml STK-MED ONCE .ROUTE ; Start 07/06/19 at 08:47; Stop 07/06/19 at 08:47; Status DC Meropenem 500 mg/ Sodium Chloride 50 ml @ 100 mls/hr Q12HR IV Last administered on 07/11/19at 21:01; Start 07/06/19 at 18:00; Stop 07/12/19 at 07:58; Status DC Lidocaine HCl (Buffered Lidocaine 1%) 3 ml STK-MED ONCE .ROUTE ; Start 07/06/19 at 09:46; Stop 07/06/19 at 09:46; Status DC Lidocaine HCl (Buffered Lidocaine 1%) 6 ml 1X ONCE INJ Last administered on 07/06/19at 10:26; Start 07/06/19 at 10:15; Stop 07/06/19 at 10:16; Status DC Info (Tpn Per Pharmacy) 1 each PRN DAILY PRN MC SEE COMMENTS Last administered on 08/01/19at 13:34; Start 07/06/19 at 12:00 Sodium Chloride 1,000 ml @ 1,000 mls/hr Q1H PRN IV hypotension; Start 07/06/19 at 12:07; Stop 07/06/19 at 18:06; Status DC Diphenhydramine HCl (Benadryl) 25 mg 1X PRN PRN IV ITCHING; Start 07/06/19 at 12:15; Stop 07/07/19 at 12:14; Status DC Diphenhydramine HCl (Benadryl) 25 mg 1X PRN PRN IV ITCHING; Start 07/06/19 at 12:15; Stop 07/07/19 at 12:14; Status DC Sodium Chloride 1,000 ml @ 400 mls/hr Q2H30M PRN IV PATENCY; Start 07/06/19 at 12:07; Stop 07/07/19 at 00:06; Status DC Info (PHARMACY MONITORING -- do not chart) 1 each PRN DAILY PRN MC SEE COMMENTS; Start 07/06/19 at 12:15; Stop 07/08/19 at 08:13; Status DC Sodium Chloride 90 meq/Calcium Gluconate 10 meq/ Multivitamins 10 ml/Chromium/ Copper/Manganese/ Seleni/Zn 1 ml/ Total Parenteral Nutrition/Amino Acids/Dextrose/ Fat Emulsion Intravenous 55.005 ml @ 2.292 mls/hr TPN CONT IV ; Start 07/06/19 at 22:00; Stop 07/06/19 at 12:33; Status DC Info (Tpn Per Pharmacy) 1 each PRN DAILY PRN MC SEE COMMENTS; Start 07/06/19 at 12:30; Status UNV Sodium Chloride 90 meq/Calcium Gluconate 10 meq/ Multivitamins 10 ml/Chromium/ Copper/Manganese/ Seleni/Zn 0.5 ml/ Total Parenteral Nutrition/Amino Acids/Dextrose/ Fat Emulsion Intravenous 1,512 ml @ 63 mls/hr TPN CONT IV Last administered on 07/06/19at 22:06; Start 07/06/19 at 22:00; Stop 07/07/19 at 21:59; Status DC Calcium Carbonate/ Glycine (Tums) 500 mg PRN AFTMEALHC PRN PO INDIGESTION; Start 07/06/19 at 17:45 Calcium Gluconate (Calcium Gluconate) 2,000 mg 1X ONCE IVP Last administered on 07/07/19at 02:19; Start 07/07/19 at 02:15; Stop 07/07/19 at 02:16; Status DC Calcium Chloride 3000 mg/Sodium Chloride 1,030 ml @ 50 mls/hr [id number] IV Last administered on 07/09/19at 02:17; Start 07/07/19 at 08:00; Stop 07/09/19 at 15:23; Status DC Lorazepam (Ativan Inj) 1 mg PRN Q4HRS PRN IVP ANXIETY / AGITATION Last administered on 07/11/19at 00:34; Start 07/07/19 at 09:00 Sodium Chloride 1,000 ml @ 1,000 mls/hr Q1H PRN IV hypotension; Start 07/07/19 at 08:56; Stop 07/07/19 at 14:55; Status DC Albumin Human 200 ml @ 200 mls/hr 1X PRN PRN IV Hypotension; Start 07/07/19 at 09:00; Stop 07/07/19 at 14:59; Status DC Diphenhydramine HCl (Benadryl) 25 mg 1X PRN PRN IV ITCHING; Start 07/07/19 at 09:00; Stop 07/08/19 at 08:59; Status DC Diphenhydramine HCl (Benadryl) 25 mg 1X PRN PRN IV ITCHING; Start 07/07/19 at 09:00; Stop 07/08/19 at 08:59; Status DC Sodium Chloride 1,000 ml @ 400 mls/hr Q2H30M PRN IV PATENCY; Start 07/07/19 at 08:56; Stop 07/07/19 at 20:55; Status DC Info (PHARMACY MONITORING -- do not chart) 1 each PRN DAILY PRN MC SEE CO MMENTS; Start 07/07/19 at 09:00; Status UNV Info (PHARMACY MONITORING -- do not chart) 1 each PRN DAILY PRN MC SEE COMMENTS; Start 07/07/19 at 09:00; Stop 07/08/19 at 08:13; Status DC Digoxin (Lanoxin) 500 mcg 1X ONCE IV Last administered on 07/07/19at 10:04; Start 07/07/19 at 10:00; Stop 07/07/19 at 10:01; Status DC Digoxin (Lanoxin) 125 mcg 1X ONCE IV Last administered on 07/07/19at 17:10; Start 07/07/19 at 18:00; Stop 07/07/19 at 18:01; Status DC Magnesium Sulfate 100 ml @ 25 mls/hr 1X ONCE IV Last administered on 07/07/19at 12:48; Start 07/07/19 at 13:00; Stop 07/07/19 at 16:59; Status DC Sodium Chloride 90 meq/Magnesium Sulfate 10 meq/ Calcium Gluconate 20 meq/ Multivitamins 10 ml/Chromium/ Copper/Manganese/ Seleni/Zn 0.5 ml/ Total Parenteral Nutrition/Amino Acids/Dextrose/ Fat Emulsion Intravenous 1,512 ml @ 63 mls/hr TPN CONT IV Last administered on 07/07/19at 22:25; Start 07/07/19 at 22:00; Stop 07/08/19 at 21:59; Status DC Sodium Chloride 1,000 ml @ 1,000 mls/hr Q1H PRN IV hypotension; Start 07/08/19 at 08:05; Stop 07/08/19 at 14:04; Status DC Albumin Human 200 ml @ 200 mls/hr 1X ONCE IV Last administered on 07/08/19at 08:57; Start 07/08/19 at 08:15; Stop 07/08/19 at 09:14; Status DC Diphenhydramine HCl (Benadryl) 25 mg 1X PRN PRN IV ITCHING; Start 07/08/19 at 08:15; Stop 07/09/19 at 08:14; Status DC Diphenhydramine HCl (Benadryl) 25 mg 1X PRN PRN IV ITCHING; Start 07/08/19 at 08:15; Stop 07/09/19 at 08:14; Status DC Sodium Chloride 1,000 ml @ 400 mls/hr Q2H30M PRN IV PATENCY; Start 07/08/19 at 08:05; Stop 07/08/19 at 20:04; Status DC Info (PHARMACY MONITORING -- do not chart) 1 each PRN DAILY PRN MC SEE COMMENTS; Start 07/08/19 at 08:15; Stop 07/12/19 at 07:57; Status DC Sodium Chloride 90 meq/Potassium Chloride 15 meq/ Potassium Phosphate 10 mmol/ Magnesium Sulfate 10 meq/Calcium Gluconate 20 meq/ Multivitamins 10 ml/Chromium/ Copper/Manganese/ Seleni/Zn 0.5 ml/ Total Parenteral Nutrition/Amino Acids/Dextrose/ Fat Emulsion Intravenous 1,512 ml @ 63 mls/hr TPN CONT IV Last administered on 07/08/19at 21:01; Start 07/08/19 at 22:00; Stop 07/09/19 at 21:59; Status DC Potassium Chloride/Water 100 ml @ 100 mls/hr 1X ONCE IV Last administered on 07/08/19at 14:09; Start 07/08/19 at 14:00; Stop 07/08/19 at 14:59; Status DC Benzocaine (Hurricaine One) 1 spray 1X ONCE MM Last administered on 07/08/19at 16:38; Start 07/08/19 at 14:30; Stop 07/08/19 at 14:31; Status DC Lidocaine HCl (Glydo (Lidocaine) Jelly) 1 rmau 1X ONCE MM Last administered on 07/08/19at 16:38; Start 07/08/19 at 14:30; Stop 07/08/19 at 14:31; Status DC Linezolid/Dextrose 300 ml @ 300 mls/hr Q12HR IV Last administered on 07/14/19at 21:04; Start 07/08/19 at 20:00; Stop 07/15/19 at 07:50; Status DC Acetaminophen (Tylenol) 650 mg PRN Q6HRS PRN PO MILD PAIN / TEMP; Start 07/09/19 at 03:30; Stop 07/09/19 at 03:36; Status DC Acetaminophen (Tylenol) 650 mg PRN Q6HRS PRN PEG MILD PAIN / TEMP Last administered on 07/14/19at 07:35; Start 07/09/19 at 03:36 Sodium Chloride 1,000 ml @ 1,000 mls/hr Q1H PRN IV hypotension; Start 07/09/19 at 07:50; Stop 07/09/19 at 13:49; Status DC Albumin Human 200 ml @ 200 mls/hr 1X PRN PRN IV Hypotension; Start 07/09/19 at 08:00; Stop 07/09/19 at 13:59; Status DC Sodium Chloride (Normal Saline Flush) 10 ml 1X PRN PRN IV AP catheter pack; Start 07/09/19 at 08:00; Stop 07/10/19 at 07:59; Status DC Sodium Chloride (Normal Saline Flush) 10 ml 1X PRN PRN IV INSPECTOR TOYS catheter pack; Start 07/09/19 at 08:00; Stop 07/10/19 at 07:59; Status DC Sodium Chloride 1,000 ml @ 400 mls/hr Q2H30M PRN IV PATENCY; Start 07/09/19 at 07:50; Stop 07/09/19 at 19:49; Status DC Info (PHARMACY MONITORING -- do not chart) 1 each PRN DAILY PRN MC SEE COMMENTS; Start 07/09/19 at 08:00; Status UNV Info (PHARMACY MONITORING -- do not chart) 1 each PRN DAILY PRN MC SEE COMMENTS; Start 07/09/19 at 08:00; Stop 07/11/19 at 08:25; Status DC Sodium Chloride 90 meq/Potassium Chloride 15 meq/ Potassium Phosphate 10 mmol/ Magnesium Sulfate 10 meq/Calcium Gluconate 20 meq/ Multivitamins 10 ml/Chromium/ Copper/Manganese/ Seleni/Zn 0.5 ml/ Total Parenteral Nutrition/Amino Acids/Dextrose/ Fat Emulsion Intravenous 1,512 ml @ 63 mls/hr TPN CONT IV Last administered on 07/09/19at 20:57; Start 07/09/19 at 22:00; Stop 07/10/19 at 21:59; Status DC Sodium Chloride 90 meq/Potassium Chloride 15 meq/ Potassium Phosphate 15 mmol/ Magnesium Sulfate 10 meq/Calcium Gluconate 20 meq/ Multivitamins 10 ml/Chromium/ Copper/Manganese/ Seleni/Zn 0.5 ml/ Total Parenteral Nutrition/Amino Acids/Dextrose/ Fat Emulsion Intravenous 1,512 ml @ 63 mls/hr TPN CONT IV ; Start 07/10/19 at 22:00; Stop 07/10/19 at 14:16; Status DC Sodium Chloride 90 meq/Potassium Chloride 15 meq/ Potassium Phosphate 15 mmol/ Magnesium Sulfate 10 meq/Calcium Gluconate 20 meq/ Multivitamins 10 ml/Chromium/ Copper/Manganese/ Seleni/Zn 0.5 ml/ Total Parenteral Nutrition/Amino Acids/Dextrose/ Fat Emulsion Intravenous 1,200 ml @ 50 mls/hr TPN CONT IV ; Start 07/10/19 at 22:00; Stop 07/10/19 at 14:17; Status DC Sodium Chloride 90 meq/Potassium Chloride 15 meq/ Potassium Phosphate 10 mmol/ Magnesium Sulfate 10 meq/Calcium Gluconate 20 meq/ Multivitamins 10 ml/Chromium/ Copper/Manganese/ Seleni/Zn 0.5 ml/ Total Parenteral Nutrition/Amino Acids/Dextrose/ Fat Emulsion Intravenous 1,200 ml @ 50 mls/hr TPN CONT IV Last administered on 07/10/19at 23:29; Start 07/10/19 at 22:00; Stop 07/11/19 at 21:59; Status DC Sodium Chloride 1,000 ml @ 1,000 mls/hr Q1H PRN IV hypotension; Start 07/11/19 at 07:28; Stop 07/11/19 at 13:27; Status DC Albumin Human 200 ml @ 200 mls/hr 1X ONCE IV Last administered on 07/11/19at 08:51; Start 07/11/19 at 07:30; Stop 07/11/19 at 08:29; Status DC Diphenhydramine HCl (Benadryl) 25 mg 1X PRN PRN IV ITCHING; Start 07/11/19 at 07:30; Stop 07/12/19 at 07:29; Status DC Diphenhydramine HCl (Benadryl) 25 mg 1X PRN PRN IV ITCHING; Start 07/11/19 at 07:30; Stop 07/12/19 at 07:29; Status DC Sodium Chloride 1,000 ml @ 400 mls/hr Q2H30M PRN IV PATENCY; Start 07/11/19 at 07:28; Stop 07/11/19 at 19:27; Status DC Info (PHARMACY MONITORING -- do not chart) 1 each PRN DAILY PRN MC SEE COMMENTS; Start 07/11/19 at 07:30; Stop 07/22/19 at 13:01; Status DC Metronidazole 100 ml @ 100 mls/hr Q6HRS IV Last administered on 07/27/19at 06:26; Start 07/11/19 at 08:30; Stop 07/27/19 at 09:58; Status DC Micafungin Sodium 100 mg/Dextrose 100 ml @ 100 mls/hr Q24H IV Last administered on 08/01/19at 14:06; Start 07/11/19 at 09:00 Propofol 0 ml @ As Directed STK-MED ONCE IV ; Start 07/11/19 at 07:53; Stop 07/11/19 at 07:53; Status DC Etomidate (Amidate) 20 mg STK-MED ONCE IV ; Start 07/11/19 at 07:53; Stop 07/11/19 at 07:54; Status DC Midazolam HCl (Versed) 5 mg STK-MED ONCE .ROUTE ; Start 07/11/19 at 07:57; Stop 07/11/19 at 07:57; Status DC Fentanyl Citrate 30 ml @ 0 mls/hr CONT PRN IV SEE PROTOCOL Last administered on 08/02/19at 08:03; Start 07/11/19 at 08:15 Artificial Tears (Artificial Tears) 1 drop PRN Q1HR PRN OU DRY EYE, 1st choice; Start 07/11/19 at 08:15 Midazolam HCl 50 mg/Sodium Chloride 50 ml @ 0 mls/hr CONT PRN IV SEE PROTOCOL Last administered on 07/14/19at 22:39; Start 07/11/19 at 08:15; Stop 07/16/19 at 15:59; Status DC Etomidate (Amidate) 8 mg 1X ONCE IV Last administered on 07/11/19at 08:33; Start 07/11/19 at 08:30; Stop 07/11/19 at 08:31; Status DC Succinylcholine Chloride (Anectine) 120 mg 1X ONCE IV Last administered on 07/11/19at 08:34; Start 07/11/19 at 08:30; Stop 07/11/19 at 08:31; Status DC Midazolam HCl (Versed) 5 mg 1X ONCE IV ; Start 07/11/19 at 08:30; Stop 07/11/19 at 08:31; Status DC Potassium Chloride 15 meq/ Bicarbonate Dialysis Soln w/ out KCl 5,007.5 ml @ 1,000 mls/ hr Q5H1M IV Last administered on 07/12/19at 11:11; Start 07/11/19 at 12:00; Stop 07/12/19 at 11:15; Status DC Potassium Chloride 15 meq/ Bicarbonate Dialysis Soln w/ out KCl 5,007.5 ml @ 1,000 mls/ hr Q5H1M IV Last administered on 07/12/19at 11:12; Start 07/11/19 at 12:00; Stop 07/12/19 at 11:17; Status DC Potassium Chloride 15 meq/ Bicarbonate Dialysis Soln w/ out KCl 5,007.5 ml @ 1,000 mls/ hr Q5H1M IV Last administered on 07/12/19at 11:11; Start 07/11/19 at 12:00; Stop 07/12/19 at 11:19; Status DC Sodium Chloride 90 meq/Potassium Chloride 15 meq/ Potassium Phosphate 10 mmol/ Magnesium Sulfate 10 meq/Calcium Gluconate 20 meq/ Multivitamins 10 ml/Chromium/ Copper/Manganese/ Seleni/Zn 0.5 ml/ Total Parenteral Nutrition/Amino Acids/De xtrose/ Fat Emulsion Intravenous 1,400 ml @ 58.333 mls/ hr TPN CONT IV Last administered on 07/11/19at 21:42; Start 07/11/19 at 22:00; Stop 07/12/19 at 21:59; Status DC Heparin Sodium (Porcine) (Heparin Sodium) 5,000 unit Q8HRS SQ Last administered on 07/16/19at 05:55; Start 07/11/19 at 15:00; Stop 07/16/19 at 13:28; Status DC Meropenem 500 mg/ Sodium Chloride 50 ml @ 100 mls/hr Q6HRS IV Last administered on 07/13/19at 06:00; Start 07/12/19 at 09:00; Stop 07/13/19 at 07:29; Status DC Potassium Phosphate 20 mmol/ Sodium Chloride 106.6667 ml @ 51.667 m... 1X ONCE IV Last administered on 07/12/19at 11:22; Start 07/12/19 at 10:15; Stop 07/12/19 at 12:18; Status DC Acetaminophen (Tylenol Supp) 650 mg PRN Q6HRS PRN SD MILD PAIN / TEMP Last administered on 08/02/19at 08:01; Start 07/12/19 at 10:30 Potassium Chloride/Water 100 ml @ 100 mls/hr Q1H IV Last administered on 07/12/19at 12:12; Start 07/12/19 at 11:00; Stop 07/12/19 at 12:59; Status DC Potassium Chloride 20 meq/ Bicarbonate Dialysis Soln w/ out KCl 5,010 ml @ 1,000 mls/hr Q5H1M IV Last administered on 07/13/19at 08:48; Start 07/12/19 at 12:00; Stop 07/13/19 at 13:03; Status DC Potassium Chloride 20 meq/ Bicarbonate Dialysis Soln w/ out KCl 5,010 ml @ 1,000 mls/hr Q5H1M IV Last administered on 07/17/19at 14:52; Start 07/12/19 at 11:30; Stop 07/17/19 at 19:59; Status DC Potassium Chloride 20 meq/ Bicarbonate Dialysis Soln w/ out KCl 5,010 ml @ 1,000 mls/hr Q5H1M IV Last administered on 07/17/19at 14:53; Start 07/12/19 at 11:30; Stop 07/17/19 at 19:59; Status DC Sodium Chloride 90 meq/Potassium Chloride 15 meq/ Potassium Phosphate 15 mmol/ Magnesium Sulfate 10 meq/Calcium Gluconate 15 meq/ Multivitamins 10 ml/Chromium/ Copper/Manganese/ Seleni/Zn 0.5 ml/ Total Parenteral Nutrition/Amino Acids/Dex trose/ Fat Emulsion Intravenous 1,400 ml @ 58.333 mls/ hr TPN CONT IV Last administered on 07/12/19at 22:17; Start 07/12/19 at 22:00; Stop 07/13/19 at 21:59; Status DC Cefepime HCl (Maxipime) 2 gm Q12HR IVP Last administered on 07/26/19at 20:56; Start 07/13/19 at 09:00; Stop 07/27/19 at 09:58; Status DC Daptomycin 500 mg/ Sodium Chloride 50 ml @ 100 mls/hr Q48H IV Last administ ered on 07/29/19at 09:57; Start 07/13/19 at 08:30; Stop 07/29/19 at 10:07; Status DC Lidocaine HCl (Buffered Lidocaine 1%) 3 ml 1X ONCE INJ Last administered on 07/13/19at 10:27; Start 07/13/19 at 10:30; Stop 07/13/19 at 10:31; Status DC Potassium Phosphate 20 mmol/ Sodium Chloride 106.6667 ml @ 51.667 m... 1X ONCE IV Last administered on 07/13/19at 12:51; Start 07/13/19 at 13:00; Stop 07/13/19 at 15:03; Status DC Sodium Chloride 90 meq/Potassium Chloride 15 meq/ Potassium Phosphate 18 mmol/ Magnesium Sulfate 8 meq/Calcium Gluconate 15 meq/ Multivitamins 10 ml/Chromium/ Copper/Manganese/ Seleni/Zn 0.5 ml/ Total Parenteral Nutrition/Amino Acids/Dextrose/ Fat Emulsion Intravenous 1,400 ml @ 58.333 mls/ hr TPN CONT IV Last administered on 07/13/19at 22:16; Start 07/13/19 at 22:00; Stop 07/14/19 at 21:59; Status DC Potassium Chloride 20 meq/ Bicarbonate Dialysis Soln w/ out KCl 5,010 ml @ 1,000 mls/hr Q5H1M IV Last administered on 07/17/19at 14:54; Start 07/13/19 at 16:00; Stop 07/17/19 at 19:59; Status DC Multi-Ingred Cream/Lotion/Oil/ Oint (Artificial Tears Eye Ointment) 1 ramu PRN Q1HR PRN OU DRY EYE, 2nd choice Last administered on 08/01/19at 08:19; Start 07/13/19 at 17:30 Sodium Chloride 90 meq/Potassium Chloride 15 meq/ Potassium Phosphate 18 mmol/ Magnesium Sulfate 8 meq/Calcium Gluconate 15 meq/ Multivitamins 10 ml/Chromium/ Copper/Manganese/ Seleni/Zn 0.5 ml/ Total Parenteral Nutrition/Amino Acids/Dextrose/ Fat Emulsion Intravenous 1,400 ml @ 58.333 mls/ hr TPN CONT IV Last administered on 07/14/19at 22:00; Start 07/14/19 at 22:00; Stop 07/15/19 at 21:59; Status DC Albumin Human 500 ml @ 125 mls/hr 1X ONCE IV ; Start 07/14/19 at 14:15; Stop 07/14/19 at 18:14; Status DC Sodium Chloride 90 meq/Potassium Chloride 15 meq/ Potassium Phosphate 18 mmol/ Magnesium Sulfate 8 meq/Calcium Gluconate 15 meq/ Multivitamins 10 ml/Chromium/ Copper/Manganese/ Seleni/Zn 0.5 ml/ Insulin Human Regular 10 unit/ Total Parenteral Nutrition/Amino Acids/Dextrose/ Fat Emulsion Intravenous 1,400 ml @ 58.333 mls/ hr TPN CONT IV Last administered on 07/15/19at 21:43; Start 07/15/19 at 22:00; Stop 07/16/19 at 21:59; Status DC Lidocaine HCl (Buffered Lidocaine 1%) 3 ml STK-MED ONCE .ROUTE ; Start 07/13/19 at 10:00; Stop 07/15/19 at 13:57; Status DC Midazolam HCl 100 mg/Sodium Chloride 100 ml @ 7 mls/hr CONT PRN IV SEE PROTOCOL Last administered on 07/27/19at 15:35; Start 07/16/19 at 16:00 Sodium Chloride 90 meq/Potassium Chloride 15 meq/ Potassium Phosphate 18 mmol/ Magnesium Sulfate 8 meq/Calcium Gluconate 15 meq/ Multivitamins 10 ml/Chromium/ Copper/Manganese/ Seleni/Zn 0.5 ml/ Insulin Human Regular 15 unit/ Total Parenteral Nutrition/Amino Acids/Dextrose/ Fat Emulsion Intravenous 1,400 ml @ 58.333 mls/ hr TPN CONT IV Last administered on 07/16/19at 20:34; Start 0 at 22:00; Stop 07/17/19 at 21:59; Status DC Info (Icu Electrolyte Protocol) 1 ea CONT PRN PRN MC PER PROTOCOL; Start 07/17/19 at 13:15 Sodium Chloride 90 meq/Potassium Chloride 15 meq/ Potassium Phosphate 18 mmol/ Magnesium Sulfate 8 meq/Calcium Gluconate 15 meq/ Multivitamins 10 ml/Chromium/ Copper/Manganese/ Seleni/Zn 0.5 ml/ Insulin Human Regular 15 unit/ Total Parenteral Nutrition/Amino Acids/Dextrose/ Fat Emulsion Intravenous 1,400 ml @ 58.333 mls/ hr TPN CONT IV Last administered on 07/17/19at 22:05; Start 07/17/19 at 22:00; Stop 07/18/19 at 21:59; Status DC Potassium Chloride 15 meq/ Bicarbonate Dialysis Soln w/ out KCl 5,007.5 ml @ 1,000 mls/ hr Q5H1M IV Last administered on 07/20/19at 18:14; Start 07/17/19 at 20:00; Stop 07/21/19 at 13:08; Status DC Potassium Chloride 15 meq/ Bicarbonate Dialysis Soln w/ out KCl 5,007.5 ml @ 1,000 mls/ hr Q5H1M IV Last administered on 07/20/19at 18:14; Start 07/17/19 at 20:00; Stop 07/21/19 at 13:08; Status DC Potassium Chloride 15 meq/ Bicarbonate Dialysis Soln w/ out KCl 5,007.5 ml @ 1,000 mls/ hr Q5H1M IV Last administered on 07/20/19at 18:14; Start 07/17/19 at 20:00; Stop 07/21/19 at 13:08; Status DC Iohexol (Omnipaque 240 Mg/ml) 30 ml 1X ONCE PO Last administered on 07/18/19at 11:30; Start 07/18/19 at 11:30; Stop 07/18/19 at 11:33; Status DC Info (CONTRAST GIVEN -- Rx MONITORING) 1 each PRN DAILY PRN MC SEE COMMENTS; Start 07/18/19 at 11:45; Stop 07/20/19 at 11:44; Status DC Sodium Chloride 90 meq/Potassium Chloride 15 meq/ Potassium Phosphate 18 mmol/ M agnesium Sulfate 8 meq/Calcium Gluconate 15 meq/ Multivitamins 10 ml/Chromium/ Copper/Manganese/ Seleni/Zn 0.5 ml/ Insulin Human Regular 15 unit/ Total Parenteral Nutrition/Amino Acids/Dextrose/ Fat Emulsion Intravenous 1,400 ml @ 58.333 mls/ hr TPN CONT IV Last administered on 07/18/19at 21:47; Start 07/18/19 at 22:00; Stop 07/19/19 at 21:59; Status DC Sodium Chloride 90 meq/Potassium Chloride 15 meq/ Potassium Phosphate 18 mmol/ Magnesium Sulfate 8 meq/Calcium Gluconate 15 meq/ Multivitamins 10 ml/Chromium/ Copper/Manganese/ Seleni/Zn 0.5 ml/ Insulin Human Regular 20 unit/ Total Parenteral Nutrition/Amino Acids/Dextrose/ Fat Emulsion Intravenous 1,400 ml @ 58.333 mls/ hr TPN CONT IV Last administered on 07/19/19at 21:36; Start 07/19/19 at 22:00; Stop 07/20/19 at 21:59; Status DC Alteplase, Recombinant (Cathflo For Central Catheter Clearance) 1 mg 1X ONCE INT CAT Last administered on 07/19/19at 20:03; Start 07/19/19 at 19:30; Stop 07/19/19 at 19:46; Status DC Alteplase, Recombinant (Cathflo For Central Catheter Clearance) 1 mg 1X ONCE INT CAT Last administered on 07/19/19at 22:05; Start 07/19/19 at 22:00; Stop 07/19/19 at 22:01; Status DC Sodium Chloride 90 meq/Potassium Chloride 15 meq/ Potassium Phosphate 18 mmol/ Magnesium Sulfate 8 meq/Calcium Gluconate 15 meq/ Multivitamins 10 ml/Chromium/ Copper/Manganese/ Seleni/Zn 0.5 ml/ Insulin Human Regular 20 unit/ Total Parenteral Nutrition/Amino Acids/Dextrose/ Fat Emulsion Intravenous 1,400 ml @ 58.333 mls/ hr TPN CONT IV Last administered on 07/20/19at 21:30; Start 07/20/19 at 22:00; Stop 07/21/19 at 21:59; Status DC Dexmedetomidine HCl 400 mcg/ Sodium Chloride 100 ml @ 0 mls/hr CONT PRN IV ANXIETY / AGITATION Last administered on 08/02/19at 05:07; Start 07/21/19 at 08:15 Sodium Chloride 500 ml @ 500 mls/hr 1X PRN PRN IV ELEVATED BP, SEE COMMENTS; Start 07/21/19 at 08:15 Atropine Sulfate (ATROPINE 0.5mg SYRINGE) 0.5 mg PRN Q5MIN PRN IV SEE COMMENTS; Start 07/21/19 at 08:15 Furosemide (Lasix) 20 mg 1X ONCE IVP Last administered on 07/21/19at 08:19; Start 07/21/19 at 08:15; Stop 07/21/19 at 08:16; Status DC Lidocaine HCl (Buffered Lidocaine 1%) 3 ml STK-MED ONCE .ROUTE ; Start 07/21/19 at 08:39; Stop 07/21/19 at 08:39; Status DC Lidocaine HCl (Buffered Lidocaine 1%) 6 ml 1X ONCE INJ Last administered on 07/21/19at 09:05; Start 07/21/19 at 09:00; Stop 07/21/19 at 09:06; Status DC Sodium Chloride 90 meq/Potassium Chloride 15 meq/ Potassium Phosphate 18 mmol/ Magnesium Sulfate 8 meq/Calcium Gluconate 15 meq/ Multivitamins 10 ml/Chromium/ Copper/Manganese/ Seleni/Zn 0.5 ml/ Insulin Human Regular 20 unit/ Total Parenteral Nutrition/Amino Acids/Dextrose/ Fat Emulsion Intravenous 1,400 ml @ 58.333 mls/ hr TPN CONT IV Last administered on 07/21/19at 22:45; Start 07/21/19 at 22:00; Stop 07/22/19 at 21:59; Status DC Sodium Chloride 1,000 ml @ 1,000 mls/hr Q1H PRN IV hypotension; Start 07/22/19 at 07:30; Stop 07/22/19 at 13:29; Status DC Albumin Human 200 ml @ 200 mls/hr 1X PRN PRN IV Hypotension Last administered on 07/22/19at 09:36; Start 07/22/19 at 07:30; Stop 07/22/19 at 13:29; Status DC Sodium Chloride (Normal Saline Flush) 10 ml 1X PRN PRN IV AP catheter pack; Start 07/22/19 at 07:30; Stop 07/22/19 at 21:29; Status DC Sodium Chloride (Normal Saline Flush) 10 ml 1X PRN PRN IV INSPECTOR TOYS catheter pack; Start 07/22/19 at 07:30; Stop 07/23/19 at 07:29; Status DC Sodium Chloride 1,000 ml @ 400 mls/hr Q2H30M PRN IV PATENCY; Start 07/22/19 at 07:30; Stop 07/22/19 at 19:29; Status DC Info (PHARMACY MONITORING -- do not chart) 1 each PRN DAILY PRN MC SEE COMMENTS; Start 07/22/19 at 07:30; Stop 07/22/19 at 13:02; Status DC Info (PHARMACY MONITORING -- do not chart) 1 each PRN DAILY PRN MC SEE COMMENTS; Start 07/22/19 at 07:30; Stop 07/24/19 at 12:45; Status DC Sodium Chloride 90 meq/Potassium Chloride 15 meq/ Potassium Phosphate 10 mmol/ Magnesium Sulfate 8 meq/Calcium Gluconate 15 meq/ Multivitamins 10 ml/Chromium/ Copper/Manganese/ Seleni/Zn 0.5 ml/ Insulin Human Regular 25 unit/ Total Parenteral Nutrition/Amino Acids/Dextrose/ Fat Emulsion Intravenous 1,400 ml @ 58.333 mls/ hr TPN CONT IV Last administered on 07/22/19at 22:19; Start 07/22/19 at 22:00; Stop 07/23/19 at 21:59; Status DC Heparin Sodium (Porcine) (Heparin Sodium) 5,000 unit Q12HR SQ Last administered on 08/02/19at 08:03; Start 07/22/19 at 21:00 Ondansetron HCl (Zofran) 4 mg PRN Q6HRS PRN IV NAUSEA/VOMITING; Start 07/25/19 at 07:00; Stop 07/26/19 at 06:59; Status DC Fentanyl Citrate (Fentanyl 2ml Vial) 25 mcg PRN Q5MIN PRN IV MILD PAIN 1-3; Start 07/25/19 at 07:00; Stop 07/26/19 at 06:59; Status DC Fentanyl Citrate (Fentanyl 2ml Vial) 50 mcg PRN Q5MIN PRN IV MODERATE TO SEVERE PAIN; Start 07/25/19 at 07:00; Stop 07/26/19 at 06:59; Status DC Ringer's Solution 1,000 ml @ 30 mls/hr Q24H IV ; Start 07/25/19 at 07:00; Stop 07/25/19 at 18:59; Status DC Lidocaine HCl (Xylocaine-Mpf 1% 2ml Vial) 2 ml PRN 1X PRN ID PRIOR TO IV START; Start 07/25/19 at 07:00; Stop 07/26/19 at 06:59; Status DC Prochlorperazine Edisylate (Compazine) 5 mg PACU PRN PRN IV NAUSEA, MRX1; Start 07/25/19 at 07:00; Stop 07/26/19 at 06:59; Status DC Sodium Chloride 1,000 ml @ 1,000 mls/hr Q1H PRN IV hypotension; Start 07/23/19 at 09:10; Stop 07/23/19 at 15:09; Status DC Albumin Human 200 ml @ 200 mls/hr 1X PRN PRN IV Hypotension Last administered on 07/23/19at 10:10; Start 07/23/19 at 09:15; Stop 07/23/19 at 15:14; Status DC Sodium Chloride 1,000 ml @ 400 mls/hr Q2H30M PRN IV PATENCY; Start 07/23/19 at 09:10; Stop 07/23/19 at 21:09; Status DC Info (PHARMACY MONITORING -- do not chart) 1 each PRN DAILY PRN MC SEE COMMENTS; Start 07/23/19 at 09:15; Stop 07/24/19 at 12:45; Status DC Info (PHARMACY MONITORING -- do not chart) 1 each PRN DAILY PRN MC SEE COMMENTS; Start 07/23/19 at 09:15; Stop 07/24/19 at 12:45; Status DC Sodium Chloride 90 meq/Potassium Chloride 15 meq/ Potassium Phosphate 10 mmol/ Magnesium Sulfate 8 meq/Calcium Gluconate 15 meq/ Multivitamins 10 ml/Chromium/ Copper/Manganese/ Seleni/Zn 0.5 ml/ Insulin Human Regular 25 unit/ Total Parenteral Nutrition/Amino Acids/Dextrose/ Fat Emulsion Intravenous 1,400 ml @ 58.333 mls/ hr TPN CONT IV Last administered on 07/23/19at 22:10; Start 07/23/19 at 22:00; Stop 07/24/19 at 21:59; Status DC Magnesium Sulfate 50 ml @ 25 mls/hr PRN DAILY PRN IV for Mag < 1.7 on am labs; Start 07/24/19 at 09:15 Sodium Chloride 90 meq/Potassium Chloride 15 meq/ Potassium Phosphate 10 mmol/ Magnesium Sulfate 8 meq/Calcium Gluconate 15 meq/ Multivitamins 10 ml/Chromium/ Copper/Manganese/ Seleni/Zn 0.5 ml/ Insulin Human Regular 25 unit/ Total Parenteral Nutrition/Amino Acids/Dextrose/ Fat Emulsion Intravenous 1,400 ml @ 58.333 mls/ hr TPN CONT IV Last administered on 07/24/19at 21:20; Start 07/24/19 at 22:00; Stop 07/25/19 at 21:59; Status DC Sodium Chloride 1,000 ml @ 1,000 mls/hr Q1H PRN IV hypotension; Start 07/24/19 at 12:23; Stop 07/24/19 at 18:22; Status DC Albumin Human 200 ml @ 200 mls/hr 1X ONCE IV Last administered on 07/24/19at 13:34; Start 07/24/19 at 12:30; Stop 07/24/19 at 13:29; Status DC Diphenhydramine HCl (Benadryl) 25 mg 1X PRN PRN IV ITCHING; Start 07/24/19 at 12:30; Stop 07/25/19 at 12:29; Status DC Diphenhydramine HCl (Benadryl) 25 mg 1X PRN PRN IV ITCHING; Start 07/24/19 at 12:30; Stop 07/25/19 at 12:29; Status DC Info (PHARMACY MONITORING -- do not chart) 1 each PRN DAILY PRN MC SEE COMMENTS; Start 07/24/19 at 12:30; Status Cancel Bupivacaine HCl/ Epinephrine Bitart (Sensorcain-Epi 0.5%-1:896003 Mpf) 30 ml STK-MED ONCE .ROUTE Last administered on 07/25/19at 11:44; Start 07/25/19 at 11:00; Stop 07/25/19 at 11:01; Status DC Cellulose (Surgicel Fibrillar 1x2) 1 each STK-MED ONCE .ROUTE ; Start 07/25/19 at 11:00; Stop 07/25/19 at 11:01; Status DC Sodium Chloride 90 meq/Potassium Chloride 15 meq/ Potassium Phosphate 10 mmol/ Magnesium Sulfate 12 meq/Calcium Gluconate 15 meq/ Multivitamins 10 ml/Chromium/ Copper/Manganese/ Seleni/Zn 0.5 ml/ Insulin Human Regular 25 unit/ Total Pare nteral Nutrition/Amino Acids/Dextrose/ Fat Emulsion Intravenous 1,400 ml @ 58.333 mls/ hr TPN CONT IV Last administered on 07/25/19at 22:24; Start 07/25/19 at 22:00; Stop 07/26/19 at 21:59; Status DC Propofol 20 ml @ As Directed STK-MED ONCE IV ; Start 07/25/19 at 11:07; Stop 07/25/19 at 11:07; Status DC Cellulose (Surgicel Hemostat 4x8) 1 each STK-MED ONCE .ROUTE Last administered on 07/25/19at 11:44; Start 07/25/19 at 11:55; Stop 07/25/19 at 11:56; Status DC Sevoflurane (Ultane) 60 ml STK-MED ONCE IH ; Start 07/25/19 at 12:46; Stop 07/25/19 at 12:46; Status DC Sodium Chloride 1,000 ml @ 1,000 mls/hr Q1H PRN IV hypotension; Start 07/25/19 at 13:51; Stop 07/25/19 at 19:50; Status DC Albumin Human 200 ml @ 200 mls/hr 1X PRN PRN IV Hypotension Last administered on 07/25/19at 14:51; Start 07/25/19 at 14:00; Stop 07/25/19 at 19:59; Status DC Diphenhydramine HCl (Benadryl) 25 mg 1X PRN PRN IV ITCHING; Start 07/25/19 at 14:00; Stop 07/26/19 at 13:59; Status DC Diphenhydramine HCl (Benadryl) 25 mg 1X PRN PRN IV ITCHING; Start 07/25/19 at 14:00; Stop 07/26/19 at 13:59; Status DC Sodium Chloride 1,000 ml @ 400 mls/hr Q2H30M PRN IV PATENCY; Start 07/25/19 at 13:51; Stop 07/26/19 at 01:50; Status DC Info (PHARMACY MONITORING -- do not chart) 1 each PRN DAILY PRN MC SEE COMME NTS; Start 07/25/19 at 14:00; Stop 07/28/19 at 08:16; Status DC Heparin Sodium (Porcine) (Hep Lock Adult) 500 unit STK-MED ONCE IVP ; Start 07/26/19 at 09:29; Stop 07/26/19 at 09:30; Status DC Sodium Chloride 1,000 ml @ 1,000 mls/hr Q1H PRN IV hypotension; Start 07/26/19 at 10:43; Stop 07/26/19 at 16:42; Status DC Sodium Chloride 1,000 ml @ 400 mls/hr Q2H30M PRN IV PATENCY; Start 07/26/19 at 10:43; Stop 07/26/19 at 22:42; Status DC Info (PHARMACY MONITORING -- do not chart) 1 each PRN DAILY PRN MC SEE PIPE TS; Start 07/26/19 at 10:45; Status UNV Info (PHARMACY MONITORING -- do not chart) 1 each PRN DAILY PRN MC SEE COMMENTS; Start 07/26/19 at 10:45; Status UNV Sodium Chloride 90 meq/Potassium Chloride 15 meq/ Magnesium Sulfate 12 meq/Calcium Gluconate 15 meq/ Multivitamins 10 ml/Chromium/ Copper/Manganese/ Seleni/Zn 0.5 ml/ Insulin Human Regular 25 unit/ Total Parenteral Nutrition/A jeb Acids/Dextrose/ Fat Emulsion Intravenous 1,400 ml @ 58.333 mls/ hr TPN CONT IV Last administered on 07/26/19at 22:13; Start 07/26/19 at 22:00; Stop 07/27/19 at 21:59; Status DC Sodium Chloride 1,000 ml @ 1,000 mls/hr Q1H PRN IV hypotension; Start 07/27/19 at 07:50; Stop 07/27/19 at 13:49; Status DC Albumin Human 200 ml @ 200 mls/hr 1X ONCE IV ; Start 07/27/19 at 08:00; Stop 07/27/19 at 08:53; Status DC Diphenhydramine HCl (Benadryl) 25 mg 1X PRN PRN IV ITCHING; Start 07/27/19 at 08:00; Stop 07/28/19 at 07:59; Status DC Diphenhydramine HCl (Benadryl) 25 mg 1X PRN PRN IV ITCHING; Start 07/27/19 at 08:00; Stop 07/28/19 at 07:59; Status DC Info (PHARMACY MONITORING -- do not chart) 1 each PRN DAILY PRN MC SEE COMMENTS; Start 07/27/19 at 08:00; Stop 07/28/19 at 08:16; Status DC Albumin Human 50 ml @ 50 mls/hr 1X ONCE IV ; Start 07/27/19 at 08:53; Stop 07/27/19 at 08:56; Status DC Albumin Human 200 ml @ 50 mls/hr PRN 1X PRN IV HYPOTENSION Last administered on 07/27/19at 09:09; Start 07/27/19 at 09:00 Meropenem 500 mg/ Sodium Chloride 50 ml @ 100 mls/hr Q12H IV Last administered on 08/01/19at 22:03; Start 07/27/19 at 10:00 Sodium Chloride 90 meq/Magnesium Sulfate 12 meq/ Calcium Gluconate 15 meq/ Multivitamins 10 ml/Chromium/ Copper/Manganese/ Seleni/Zn 0.5 ml/ Insulin Human Regular 25 unit/ Total Parenteral Nutrition/Amino Acids/Dextrose/ Fat Emulsion Intravenous 1,400 ml @ 58.333 mls/ hr TPN CONT IV Last administered on 07/27/19at 21:41; Start 07/27/19 at 22:00; Stop 07/28/19 at 21:59; Status DC Sodium Chloride 1,000 ml @ 1,000 mls/hr Q1H PRN IV hypotension; Start 07/28/19 at 07:58; Stop 07/28/19 at 13:57; Status DC Albumin Human 200 ml @ 200 mls/hr 1X PRN PRN IV Hypotension Last administered on 07/28/19at 09:30; Start 07/28/19 at 08:00; Stop 07/28/19 at 13:59; Status DC Sodium Chloride 1,000 ml @ 400 mls/hr Q2H30M PRN IV PATENCY; Start 07/28/19 at 07:58; Stop 07/28/19 at 19:57; Status DC Info (PHARMACY MONITORING -- do not chart) 1 each PRN DAILY PRN MC SEE COMMENTS; Start 07/28/19 at 08:00; Status Cancel Info (PHARMACY MONITORING -- do not chart) 1 each PRN DAILY PRN MC SEE COMMENTS; Start 07/28/19 at 08:15; Status UNV Sodium Chloride 90 meq/Potassium Phosphate 5 mmol/ Magnesium Sulfate 12 meq/Calcium Gluconate 15 meq/ Multivitamins 10 ml/Chromium/ Copper/Manganese/ Seleni/Zn 0.5 ml/ Insulin Human Regular 30 unit/ Total Parenteral Nutrition/Amino Acids/Dextrose/ Fat Emulsion Intravenous 1,400 ml @ 58.333 mls/ hr TPN CONT IV Last administered on 07/28/19at 22:08; Start 07/28/19 at 22:00; Stop 07/29/19 at 21:59; Status DC Linezolid/Dextrose 300 ml @ 300 mls/hr Q12HR IV Last administered on 08/01/19at 21:35; Start 07/29/19 at 11:00 Sodium Chloride 90 meq/Potassium Phosphate 15 mmol/ Magnesium Sulfate 12 meq/Calcium Gluconate 15 meq/ Multivitamins 10 ml/Chromium/ Copper/Manganese/ Seleni/Zn 0.5 ml/ Insulin Human Regular 30 unit/ Total Parenteral Nutrition/Amino Acids/Dextrose/ Fat Emulsion Intravenous 1,400 ml @ 58.333 mls/ hr TPN CONT IV Last administered on 07/29/19at 21:49; Start 07/29/19 at 22:00; Stop 07/30/19 at 21:59; Status DC Sodium Chloride 90 meq/Potassium Phosphate 15 mmol/ Magnesium Sulfate 12 meq/Calcium Gluconate 15 meq/ Multivitamins 10 ml/Chromium/ Copper/Manganese/ Seleni/Zn 0.5 ml/ Insulin Human Regular 40 unit/ Total Parenteral Nutrition/Amino Acids/Dextrose/ Fat Emulsion Intravenous 1,400 ml @ 58.333 mls/ hr TPN CONT IV Last administered on 07/30/19at 21:21; Start 07/30/19 at 22:00; Stop 07/31/19 at 21:59; Status DC Sodium Chloride 1,000 ml @ 1,000 mls/hr Q1H PRN IV hypotension; Start 07/30/19 at 13:26; Stop 07/30/19 at 19:25; Status DC Albumin Human 200 ml @ 200 mls/hr 1X PRN PRN IV Hypotension Last administered on 07/30/19at 15:00; Start 07/30/19 at 13:30; Stop 07/30/19 at 19:29; Status DC Sodium Chloride (Normal Saline Flush) 10 ml 1X PRN PRN IV AP catheter pack; Start 07/30/19 at 13:30; Stop 07/31/19 at 13:29; Status DC Sodium Chloride (Normal Saline Flush) 10 ml 1X PRN PRN IV INSPECTOR TOYS catheter pack; Start 07/30/19 at 13:30; Stop 07/31/19 at 13:29; Status DC Sodium Chloride 1,000 ml @ 400 mls/hr Q2H30M PRN IV PATENCY; Start 07/30/19 at 13:26; Stop 07/31/19 at 01:25; Status DC Info (PHARMACY MONITORING -- do not chart) 1 each PRN DAILY PRN MC SEE COMMENTS; Start 07/30/19 at 13:30; Stop 07/30/19 at 13:33; Status DC Info (PHARMACY MONITORING -- do not chart) 1 each PRN DAILY PRN MC SEE COMMENTS; Start 07/30/19 at 13:30; Stop 07/30/19 at 13:34; Status DC Sodium Chloride 90 meq/Potassium Phosphate 19 mmol/ Magnesium Sulfate 12 meq/Calcium Gluconate 15 meq/ Multivitamins 10 ml/Chromium/ Copper/Manganese/ Seleni/Zn 0.5 ml/ Insulin Human Regular 40 unit/ Total Parenteral Nutrition/Amino Acids/Dextrose/ Fat Emulsion Intravenous 1,400 ml @ 58.333 mls/ hr TPN CONT IV Last administered on 07/31/19at 21:54; Start 07/31/19 at 22:00; Stop 08/01/19 at 21:59; Status DC Sodium Chloride 1,000 ml @ 1,000 mls/hr Q1H PRN IV hypotension; Start 08/01/19 at 09:35; Stop 08/01/19 at 15:34; Status DC Albumin Human 200 ml @ 200 mls/hr 1X PRN PRN IV Hypotension; Start 08/01/19 at 09:45; Stop 08/01/19 at 15:44; Status DC Diphenhydramine HCl (Benadryl) 25 mg 1X PRN PRN IV ITCHING; Start 08/01/19 at 09:45; Stop 08/02/19 at 09:44 Diphenhydramine HCl (Benadryl) 25 mg 1X PRN PRN IV ITCHING; Start 08/01/19 at 09:45; Stop 08/02/19 at 09:44 Sodium Chloride 1,000 ml @ 400 mls/hr Q2H30M PRN IV PATENCY; Start 08/01/19 at 09:35; Stop 08/01/19 at 21:34; Status DC Info (PHARMACY MONITORING -- do not chart) 1 each PRN DAILY PRN MC SEE COMMENTS; Start 08/01/19 at 09:45 Sodium Chloride 100 meq/Potassium Phosphate 19 mmol/ Magnesium Sulfate 12 meq/Calcium Gluconate 15 meq/ Multivitamins 10 ml/Chromium/ Copper/Manganese/ Seleni/Zn 0.5 ml/ Insulin Human Regular 40 unit/ Potassium Chloride 20 meq/ Total Parenteral Nutrition/Amino Acids/Dextrose/ Fat Emulsion Intravenous 1,400 ml @ 58.333 mls/ hr TPN CONT IV Last administered on 08/01/19at 22:02; Start 08/01/19 at 22:00; Stop 08/02/19 at 21:59 Furosemide (Lasix) 40 mg 1X ONCE IVP Last administered on 08/01/19at 14:39; Start 08/01/19 at 14:30; Stop 08/01/19 at 14:31; Status DC Active Scripts Active Reported Bisoprolol Fumarate 5 Mg Tablet 10 Mg PO DAILY Vitals/I & O Vital Sign - Last 24 Hours 08/01/19 08/01/19 08/01/19 08/01/19 08:30 09:00 12:10 14:00 Pulse 109 Resp 25 B/P (MAP) 131/78 (95) Pulse Ox 100 98 100 O2 Delivery Ventilator Ventilator Ventilator Mechanical Ventilator 08/01/19 08/01/19 08/01/19 08/01/19 14:00 14:00 14:18 14:50 Temp 98.3 98.3 Pulse 110 Resp 28 29 34 B/P (MAP) 136/80 (98) Pulse Ox 99 100 97 O2 Delivery Ventilator Ventilator Ventilator Ventilator 08/01/19 08/01/19 08/01/19 08/01/19 15:00 15:40 16:00 16:20 Pulse 113 124 Resp 25 29 B/P (MAP) 150/86 (107) 167/86 (113) Pulse Ox 97 97 99 O2 Delivery Ventilator Mechanical Ventilator Ventilator Ventilator 08/01/19 08/01/19 08/01/19 08/01/19 17:00 18:00 19:00 19:48 Pulse 104 105 112 Resp 20 22 20 B/P (MAP) 135/74 (94) 132/77 (95) 146/78 (100) Pulse Ox 98 98 98 98 O2 Delivery Ventilator Ventilator Ventilator Ventilator 08/01/19 08/01/19 08/01/19 08/01/19 20:00 20:00 21:00 22:00 Temp 98.6 98.6 Pulse 106 120 108 Resp B/P (MAP) 149/78 (101) 161/78 (105) 147/84 (105) Pulse Ox 98 98 99 O2 Delivery Mechanical Ventilator Ventilator Ventilator Ventilator 08/01/19 08/01/19 08/02/19 08/02/19 23:00 23:20 00:00 00:04 Temp 98.2 98.2 Pulse 132 108 Resp B/P (MAP) 159/84 (109) 149/82 (104) Pulse Ox 98 100 99 O2 Delivery Ventilator Ventilator Ventilator Mechanical Ventilator 08/02/19 08/02/19 08/02/19 08/02/19 01:00 02:00 02:47 03:00 Pulse 114 112 124 Resp B/P (MAP) 160/99 (119) 144/82 (102) 158/87 (110) Pulse Ox 99 99 99 98 O2 Delivery Ventilator Ventilator Ventilator Ventilator 08/02/19 08/02/19 08/02/19 08/02/19 04:00 04:00 05:00 05:15 Temp 98.4 98.4 Pulse 120 118 Resp B/P (MAP) 161/86 (111) 132/94 (107) Pulse Ox 99 99 100 O2 Delivery Ventilator Mechanical Ventilator Ventilator Ventilator 08/02/19 08/02/19 08/02/19 08/02/19 06:00 07:00 07:37 07:44 Temp 100.2 100.2 Pulse 112 116 Resp B/P (MAP) 159/88 (111) 160/84 (109) Pulse Ox 99 99 100 O2 Delivery Ventilator Ventilator Ventilator Mechanical Ventilator 08/02/19 08:03 Resp 24 Pulse Ox 98 O2 Delivery Ventilator Intake and Output 08/01/19 08/01/19 08/02/19 15:00 23:00 07:00 Intake Total 50 ml 2272.8 ml 566 ml Output Total 99 ml 235 ml 390 ml Balance -49 ml 2037.8 ml 176 ml Hemodynamically unstable?: No Is patient in severe pain?: No Is NPO status required?: Yes DAVIN LANDEROS MD Aug 02, 2019 08:15
[2019-08-02 09:10] LABS: HEMATOCRIT 27.9 % (36.0-47.0); HEMOGLOBIN 9.2 g/dL (12.0-15.5); RED BLOOD COUNT 2.87 x10^6/uL (3.50-5.40); RED CELL DISTRIBUTION WIDTH 19.2 % (11.5-14.5); WHITE BLOOD COUNT 9.8 x10^3/uL (4.0-11.0)
[2019-08-02 09:14] LABS: CREATININE 1.7 mg/dL (0.6-1.0); GFR 31.9; POTASSIUM 3.7 mmol/L (3.5-5.1)
--- NOTE | 2019-08-02 09:19 | PDOC ---
Objective: Objective: D/w nurse - awake, rectal tube out - had some mucousy stool when removed. Lines not working this morning. Vital Signs: Vital Signs Date Time Temp Pulse Resp B/P (MAP) Pulse Ox O2 Delivery O2 Flow Rate FiO2 08/02/19 08:03 24 98 Ventilator 08/02/19 07:00 100.2 116 160/84 (109) 100.2 Labs: Laboratory Tests Test 08/01/19 14:11 08/01/19 15:00 08/01/19 18:26 08/02/19 01:07 Glucose (Fingerstick) 151 mg/dL 213 mg/dL 174 mg/dL O2 Saturation 94 % Arterial Blood pH 7.46 Arterial Blood pCO2 at Patient Temp 38 mmHg Arterial Blood pO2 at Patient Temp 74 mmHg Arterial Blood HCO3 26 mmol/L Arterial Blood Base Excess 2 mmol/L FiO2 35 Test 08/02/19 06:39 08/02/19 09:00 Glucose (Fingerstick) 157 mg/dL Sodium Level 137 mmol/L Potassium Level 3.7 mmol/L Chloride Level 98 mmol/L Carbon Dioxide Level 29 mmol/L Anion Gap 10 Blood Urea Nitrogen 64 mg/dL Creatinine 1.7 mg/dL Estimated GFR (Cockcroft-Gault) 31.9 Glucose Level 166 mg/dL Calcium Level 9.0 mg/dL Imaging: CXR 08/01 IMPRESSION: 1. Stable life support devices. 2. Stable moderate pleural effusions and bilateral hazy opacities. PE: GEN: looks uncomfortable LUNGS: trach/vent HEART: tachycardic ABD: quiet, distended (some better) NEURO/PSYCH: awake, makes eye contact A/P: Gallstone pancreatitis, MOSF, fever -- Continue same per GI. Hemodynamically unstable?: No Is patient in severe pain?: No Is NPO status required?: Yes CYNDEE FALCON Aug 02, 2019 09:19
--- NOTE | 2019-08-02 09:43 | PDOC ---
SURGICAL PROGRESS NOTE Subjective seen in dialysis trach in place Vital Signs Vital Signs Date Time Temp Pulse Resp B/P (MAP) Pulse Ox O2 Delivery O2 Flow Rate FiO2 08/02/19 08:03 24 98 Ventilator 08/02/19 07:00 100.2 116 160/84 (109) 100.2 I&O Intake and Output 08/02/19 07:00 Intake Total 2888.8 ml Output Total 724 ml Balance 2164.8 ml Intake Oral 0 ml IV Total 2888.8 ml Output Urine Total 424 ml Gastric Drainage Total 300 ml General: Cooperative, No acute distress HEENT: Other (trach intact) Abdomen: Other (distended ) Labs Laboratory Tests Test 07/31/19 12:00 07/31/19 12:42 07/31/19 17:53 08/01/19 00:02 Urine Collection Type Unknown Urine Color Brown Urine Clarity Cloudy Urine pH 5.0 (<5.0-8.0) Urine Specific Mcdonald >=1.030 (1.000-1.030) Urine Protein 100 mg/dL (NEG-TRACE) Urine Glucose (UA) 100 mg/dL (NEG) Urine Ketones (Stick) Trace mg/dL (NEG) Urine Blood Large (NEG) Urine Nitrite Positive (NEG) Urine Bilirubin Small (NEG) Urine Urobilinogen Dipstick 1.0 mg/dL (0.2 mg/dL) Urine Leukocyte Esterase Small (NEG) Urine RBC >40 /HPF (0-2) Urine WBC 1-4 /HPF (0-4) Urine Squamous Epithelial Cells Occ /LPF Urine Transitional Epithelial Cells Few /LPF Urine Amorphous Sediment Present /HPF Urine Bacteria Few /HPF (0-FEW) Urine Hyaline Casts Few /HPF Urine Mucus Slight /LPF Glucose (Fingerstick) 223 mg/dL (70-99) 166 mg/dL (70-99) 201 mg/dL (70-99) Test 08/01/19 06:09 08/01/19 06:10 08/01/19 14:11 08/01/19 15:00 Glucose (Fingerstick) 175 mg/dL (70-99) 151 mg/dL (70-99) White Blood Count 5.3 x10^3/uL (4.0-11.0) Red Blood Count 2.48 x10^6/uL (3.50-5.40) Hemoglobin 8.0 g/dL (12.0-15.5) Hematocrit 24.3 % (36.0-47.0) Mean Corpuscular Volume 98 fL (79-100) Mean Corpuscular Hemoglobin 32 pg (25-35) Mean Corpuscular Hemoglobin Concent 33 g/dL (31-37) Red Cell Distribution Width 19.3 % (11.5-14.5) Platelet Count 318 x10^3/uL (140-400) Neutrophils (%) (Auto) 76 % (31-73) Lymphocytes (%) (Auto) 10 % (24-48) Monocytes (%) (Auto) 12 % (0-9) Eosinophils (%) (Auto) 2 % (0-3) Basophils (%) (Auto) 0 % (0-3) Neutrophils # (Auto) 4.0 x10^3/uL (1.8-7.7) Lymphocytes # (Auto) 0.5 x10^3/uL (1.0-4.8) Monocytes # (Auto) 0.6 x10^3/uL (0.0-1.1) Eosinophils # (Auto) 0.1 x10^3/uL (0.0-0.7) Basophils # (Auto) 0.0 x10^3/uL (0.0-0.2) Sodium Level 135 mmol/L (136-145) Potassium Level 3.6 mmol/L (3.5-5.1) Chloride Level 98 mmol/L (98-107) Carbon Dioxide Level 23 mmol/L (21-32) Anion Gap 14 (6-14) Blood Urea Nitrogen 80 mg/dL (7-20) Creatinine 2.1 mg/dL (0.6-1.0) Estimated GFR (Cockcroft-Gault) 25.0 Glucose Level 167 mg/dL (70-99) Calcium Level 9.0 mg/dL (8.5-10.1) Magnesium Level 2.2 mg/dL (1.8-2.4) Triglycerides Level 245 mg/dL (0-150) O2 Saturation 94 % (92-99) Arterial Blood pH 7.46 (7.35-7.45) Arterial Blood pCO2 at Patient Temp 38 mmHg (35-46) Arterial Blood pO2 at Patient Temp 74 mmHg (75-108) Arterial Blood HCO3 26 mmol/L (21-28) Arterial Blood Base Excess 2 mmol/L (-3-3) FiO2 35 Test 08/01/19 18:26 08/02/19 01:07 08/02/19 06:39 08/02/19 09:00 Glucose (Fingerstick) 213 mg/dL (70-99) 174 mg/dL (70-99) 157 mg/dL (70-99) White Blood Count 9.8 x10^3/uL (4.0-11.0) Red Blood Count 2.87 x10^6/uL (3.50-5.40) Hemoglobin 9.2 g/dL (12.0-15.5) Hematocrit 27.9 % (36.0-47.0) Mean Corpuscular Volume 97 fL (79-100) Mean Corpuscular Hemoglobin 32 pg (25-35) Mean Corpuscular Hemoglobin Concent 33 g/dL (31-37) Red Cell Distribution Width 19.2 % (11.5-14.5) Platelet Count 380 x10^3/uL (140-400) Sodium Level 137 mmol/L (136-145) Potassium Level 3.7 mmol/L (3.5-5.1) Chloride Level 98 mmol/L (98-107) Carbon Dioxide Level 29 mmol/L (21-32) Anion Gap 10 (6-14) Blood Urea Nitrogen 64 mg/dL (7-20) Creatinine 1.7 mg/dL (0.6-1.0) Estimated GFR (Cockcroft-Gault) 31.9 Glucose Level 166 mg/dL (70-99) Calcium Level 9.0 mg/dL (8.5-10.1) Laboratory Tests Test 08/01/19 14:11 08/01/19 15:00 08/01/19 18:26 08/02/19 01:07 Glucose (Fingerstick) 151 mg/dL (70-99) 213 mg/dL (70-99) 174 mg/dL (70-99) O2 Saturation 94 % (92-99) Arterial Blood pH 7.46 (7.35-7.45) Arterial Blood pCO2 at Patient Temp 38 mmHg (35-46) Arterial Blood pO2 at Patient Temp 74 mmHg (75-108) Arterial Blood HCO3 26 mmol/L (21-28) Arterial Blood Base Excess 2 mmol/L (-3-3) FiO2 35 Test 08/02/19 06:39 08/02/19 09:00 Glucose (Fingerstick) 157 mg/dL (70-99) White Blood Count 9.8 x10^3/uL (4.0-11.0) Red Blood Count 2.87 x10^6/uL (3.50-5.40) Hemoglobin 9.2 g/dL (12.0-15.5) Hematocrit 27.9 % (36.0-47.0) Mean Corpuscular Volume 97 fL (79-100) Mean Corpuscular Hemoglobin 32 pg (25-35) Mean Corpuscular Hemoglobin Concent 33 g/dL (31-37) Red Cell Distribution Width 19.2 % (11.5-14.5) Platelet Count 380 x10^3/uL (140-400) Sodium Level 137 mmol/L (136-145) Potassium Level 3.7 mmol/L (3.5-5.1) Chloride Level 98 mmol/L (98-107) Carbon Dioxide Level 29 mmol/L (21-32) Anion Gap 10 (6-14) Blood Urea Nitrogen 64 mg/dL (7-20) Creatinine 1.7 mg/dL (0.6-1.0) Estimated GFR (Cockcroft-Gault) 31.9 Glucose Level 166 mg/dL (70-99) Calcium Level 9.0 mg/dL (8.5-10.1) Problem List Problems Medical Problems: (1) Acute pancreatitis Status: Acute (2) Cholelithiasis Status: Acute Assessment/Plan supportive care 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 APRN Aug 02, 2019 09:43
--- NOTE | 2019-08-02 11:00 | NUR ---
dr nelson attempted to replace left sc triple lumen catheter at bedside. unsuccessful. 1 set of blood cultures sent to lab from dialysis catheter.
[2019-08-02] MEDS ORDERED: DIALYSIS PATIENT. MC PRN ×2 (11:30)
[2019-08-02] MEDS: ALBUMIN HUMAN 25% 200 ML IV PRN (11:54)
--- NOTE | 2019-08-02 12:16 | PDOC ---
PULMONARY PROGRESS NOTES Subjective Patient intubated on 07/10 , s/p trach remained on assist control/ DOES NOT TOLERATE WEANING OFF FENTANYL RESTLESS TACHYCARDIC FEVER Vitals Vital Signs Date Time Temp Pulse Resp B/P (MAP) Pulse Ox O2 Delivery O2 Flow Rate FiO2 08/02/19 11:50 100 Ventilator 08/02/19 10:52 134 36 153/75 (101) 08/02/19 09:00 100.4 100.4 General: Lethargic Lungs: Other (dimished in BLL) Cardiovascular: S1, S2 Abdomen: Non-tender, Other (distended) Extremities: Other (+3 generalized edema ) Skin: Warm, Dry Labs Laboratory Tests Test 07/31/19 12:42 07/31/19 17:53 08/01/19 00:02 08/01/19 06:09 Glucose (Fingerstick) 223 mg/dL (70-99) 166 mg/dL (70-99) 201 mg/dL (70-99) 175 mg/dL (70-99) Test 08/01/19 06:10 08/01/19 14:11 08/01/19 15:00 08/01/19 18:26 White Blood Count 5.3 x10^3/uL (4.0-11.0) Red Blood Count 2.48 x10^6/uL (3.50-5.40) Hemoglobin 8.0 g/dL (12.0-15.5) Hematocrit 24.3 % (36.0-47.0) Mean Corpuscular Volume 98 fL (79-100) Mean Corpuscular Hemoglobin 32 pg (25-35) Mean Corpuscular Hemoglobin Concent 33 g/dL (31-37) Red Cell Distribution Width 19.3 % (11.5-14.5) Platelet Count 318 x10^3/uL (140-400) Neutrophils (%) (Auto) 76 % (31-73) Lymphocytes (%) (Auto) 10 % (24-48) Monocytes (%) (Auto) 12 % (0-9) Eosinophils (%) (Auto) 2 % (0-3) Basophils (%) (Auto) 0 % (0-3) Neutrophils # (Auto) 4.0 x10^3/uL (1.8-7.7) Lymphocytes # (Auto) 0.5 x10^3/uL (1.0-4.8) Monocytes # (Auto) 0.6 x10^3/uL (0.0-1.1) Eosinophils # (Auto) 0.1 x10^3/uL (0.0-0.7) Basophils # (Auto) 0.0 x10^3/uL (0.0-0.2) Sodium Level 135 mmol/L (136-145) Potassium Level 3.6 mmol/L (3.5-5.1) Chloride Level 98 mmol/L (98-107) Carbon Dioxide Level 23 mmol/L (21-32) Anion Gap 14 (6-14) Blood Urea Nitrogen 80 mg/dL (7-20) Creatinine 2.1 mg/dL (0.6-1.0) Estimated GFR (Cockcroft-Gault) 25.0 Glucose Level 167 mg/dL (70-99) Calcium Level 9.0 mg/dL (8.5-10.1) Magnesium Level 2.2 mg/dL (1.8-2.4) Triglycerides Level 245 mg/dL (0-150) Glucose (Fingerstick) 151 mg/dL (70-99) 213 mg/dL (70-99) O2 Saturation 94 % (92-99) Arterial Blood pH 7.46 (7.35-7.45) Arterial Blood pCO2 at Patient Temp 38 mmHg (35-46) Arterial Blood pO2 at Patient Temp 74 mmHg (75-108) Arterial Blood HCO3 26 mmol/L (21-28) Arterial Blood Base Excess 2 mmol/L (-3-3) FiO2 35 Test 08/02/19 01:07 08/02/19 06:39 08/02/19 09:00 Glucose (Fingerstick) 174 mg/dL (70-99) 157 mg/dL (70-99) White Blood Count 9.8 x10^3/uL (4.0-11.0) Red Blood Count 2.87 x10^6/uL (3.50-5.40) Hemoglobin 9.2 g/dL (12.0-15.5) Hematocrit 27.9 % (36.0-47.0) Mean Corpuscular Volume 97 fL (79-100) Mean Corpuscular Hemoglobin 32 pg (25-35) Mean Corpuscular Hemoglobin Concent 33 g/dL (31-37) Red Cell Distribution Width 19.2 % (11.5-14.5) Platelet Count 380 x10^3/uL (140-400) Sodium Level 137 mmol/L (136-145) Potassium Level 3.7 mmol/L (3.5-5.1) Chloride Level 98 mmol/L (98-107) Carbon Dioxide Level 29 mmol/L (21-32) Anion Gap 10 (6-14) Blood Urea Nitrogen 64 mg/dL (7-20) Creatinine 1.7 mg/dL (0.6-1.0) Estimated GFR (Cockcroft-Gault) 31.9 Glucose Level 166 mg/dL (70-99) Calcium Level 9.0 mg/dL (8.5-10.1) Laboratory Tests Test 08/01/19 14:11 08/01/19 15:00 08/01/19 18:26 08/02/19 01:07 Glucose (Fingerstick) 151 mg/dL (70-99) 213 mg/dL (70-99) 174 mg/dL (70-99) O2 Saturation 94 % (92-99) Arterial Blood pH 7.46 (7.35-7.45) Arterial Blood pCO2 at Patient Temp 38 mmHg (35-46) Arterial Blood pO2 at Patient Temp 74 mmHg (75-108) Arterial Blood HCO3 26 mmol/L (21-28) Arterial Blood Base Excess 2 mmol/L (-3-3) FiO2 35 Test 08/02/19 06:39 08/02/19 09:00 Glucose (Fingerstick) 157 mg/dL (70-99) White Blood Count 9.8 x10^3/uL (4.0-11.0) Red Blood Count 2.87 x10^6/uL (3.50-5.40) Hemoglobin 9.2 g/dL (12.0-15.5) Hematocrit 27.9 % (36.0-47.0) Mean Corpuscular Volume 97 fL (79-100) Mean Corpuscular Hemoglobin 32 pg (25-35) Mean Corpuscular Hemoglobin Concent 33 g/dL (31-37) Red Cell Distribution Width 19.2 % (11.5-14.5) Platelet Count 380 x10^3/uL (140-400) Sodium Level 137 mmol/L (136-145) Potassium Level 3.7 mmol/L (3.5-5.1) Chloride Level 98 mmol/L (98-107) Carbon Dioxide Level 29 mmol/L (21-32) Anion Gap 10 (6-14) Blood Urea Nitrogen 64 mg/dL (7-20) Creatinine 1.7 mg/dL (0.6-1.0) Estimated GFR (Cockcroft-Gault) 31.9 Glucose Level 166 mg/dL (70-99) Calcium Level 9.0 mg/dL (8.5-10.1) Medications Active Scripts Medications Dose Route/Sig Max Daily Dose Days Date Category Bisoprolol Fumarate 5 Mg Tablet 10 Mg PO DAILY 07/04/19 Reported Comments Chest x-ray reviewed 08/01 IMPRESSION: 1. moderate pleural effusions with associated atelectasis Impression . IMPRESSION: 1. Acute hypoxemic respiratory failure secondary to ARDS status post trach, 2. Gallstone pancreatitis.with NECROSIS, NOT A SURGICAL CANDIDATE 3. Severe metabolic acidosis.stable 4. Acute kidney injury-stable, ON HD 5. Acute gallstone pancreatitis. 6. Hypoalbuminemia. 7. Moderate persistent effusions 8. Fever, 9. Chronic anemia 10. Covid 19 testing negative 11. anemia 1 Plan . CPAP trial on hold today as very restless, tachycardic AC mode febrile, w/u per ID. new lines, ct chest/ abdomen Hold off on thoracentesis HD follow surgery and ID rec Discussed with RN and RT. Transfuse prn, check H/H -prn Antibiotics per ID, Follow nephrology recs Nutritional support with TPN off pressors Prognosis is guarded DVT/GI PPX d/w RN/RT CC time : 30 minutes reviewing labs, patient care and discussing will care team VINAYAK LANDRUM MD Aug 02, 2019 12:16
--- NOTE | 2019-08-02 12:17 | PDOC ---
Renal-Progress Notes Subjective Notes Notes NO NEW CHANGES History of Present Illness Hx of present illness STABLE Vitals Vitals Vital Signs Date Time Temp Pulse Resp B/P (MAP) Pulse Ox O2 Delivery O2 Flow Rate FiO2 08/02/19 11:50 100 Ventilator 08/02/19 10:52 134 36 153/75 (101) 08/02/19 09:00 100.4 100.4 Weight Weight [ ] I.O. Intake and Output Intake and Output 08/02/19 07:00 Intake Total 2888.8 ml Output Total 724 ml Balance 2164.8 ml Intake Oral 0 ml IV Total 2888.8 ml Output Urine Total 424 ml Gastric Drainage Total 300 ml Labs Labs Laboratory Tests Test 08/01/19 14:11 08/01/19 15:00 08/01/19 18:26 08/02/19 01:07 Glucose (Fingerstick) 151 mg/dL (70-99) 213 mg/dL (70-99) 174 mg/dL (70-99) O2 Saturation 94 % (92-99) Arterial Blood pH 7.46 (7.35-7.45) Arterial Blood pCO2 at Patient Temp 38 mmHg (35-46) Arterial Blood pO2 at Patient Temp 74 mmHg (75-108) Arterial Blood HCO3 26 mmol/L (21-28) Arterial Blood Base Excess 2 mmol/L (-3-3) FiO2 35 Test 08/02/19 06:39 08/02/19 09:00 Glucose (Fingerstick) 157 mg/dL (70-99) White Blood Count 9.8 x10^3/uL (4.0-11.0) Red Blood Count 2.87 x10^6/uL (3.50-5.40) Hemoglobin 9.2 g/dL (12.0-15.5) Hematocrit 27.9 % (36.0-47.0) Mean Corpuscular Volume 97 fL (79-100) Mean Corpuscular Hemoglobin 32 pg (25-35) Mean Corpuscular Hemoglobin Concent 33 g/dL (31-37) Red Cell Distribution Width 19.2 % (11.5-14.5) Platelet Count 380 x10^3/uL (140-400) Sodium Level 137 mmol/L (136-145) Potassium Level 3.7 mmol/L (3.5-5.1) Chloride Level 98 mmol/L (98-107) Carbon Dioxide Level 29 mmol/L (21-32) Anion Gap 10 (6-14) Blood Urea Nitrogen 64 mg/dL (7-20) Creatinine 1.7 mg/dL (0.6-1.0) Estimated GFR (Cockcroft-Gault) 31.9 Glucose Level 166 mg/dL (70-99) Calcium Level 9.0 mg/dL (8.5-10.1) Micro Micro Microbiology 07/29/19 Blood Culture - Preliminary, Resulted NO GROWTH AFTER 3 DAYS 07/23/19 Urine Culture - Final, Complete 07/23/19 Urine Culture Result 1 (ALEXANDRA) - Final, Complete Review of Systems Constitutional: yes: other (ON THE VENT) Physical Exam General Appearance: other (ON THE VENT) Skin: warm Respiratory: decreased breath sounds Heart: S1S2 Abdomen: soft, bowel sounds present Genitourinary: bladder flat Extremities: pulses present, edema Neurology: other (SEDATED) Assessment Assessment IMP [id number] CRRT ANEMIA LEUCOCYTOSIS-IMPROVING ANASARCA DUE TO 3RD SPACING HYPERKALEMIA-RESOLVED ACIDOSIS AND ACIDEMIA-CONTROLLED ACUTE REPS FAILURE ACUTE PANCREATITIS HYPOALBUMINEMIA HYPOCALCEMIA-FROM SAPONIFICATION-BETTER POOR HD CATHETER FUNCTION PLAN HD TODAY UF TO DW TPN TO CONTINUE NEEDED PRBC NEEDED TREAT LOW CA ONLY FOR ARRHYTHMIA OR SYMPTOMS CONT HIRAM VENT SUPPORT PRESSORS NEEDED ANTIBIOTICS WILL FOLLOW VERY POOR PROGNOSIS DONI GARCIA MD Aug 02, 2019 12:17
[2019-08-02] MEDS: MEROPENEM 500 MG in IV NORMAL SALINE 50ML 50 ML IV SCH ×2 (12:30→21:54)
[2019-08-02] MEDS: TPN PER PHARMACY MC PRN (12:34)
--- NOTE | 2019-08-02 12:36 | NUR ---
Pharmacy TPN Dosing Note S: SCOTT AVILA is a 48 year old F Currently receiving Central Continuous TPN started 07/06/19 B:Pertinent PMH: Necrotizing pancreatitis Height: 5 feet, 8 inches Weight: 106.0 kg Current diet: NPO LABS: Sodium: 137 Potassium: 3.7 Chloride: 98 Calcium: 9.0 Corrected Calcium: 9.88 Magnesium: 2.2 (07/31) CO2: 29 SCr: 1.7 Glucose: 151-213 Albumin: 2.9 AST: 47 (4/5) ALT: 20 (4/5) TPN FORMULA: TPN TYPE: Central Continuous AMINO ACIDS: 125 gm DEXTROSE: 225 gm LIPIDS: 20 gm SODIUM CHLORIDE: 100 mEq SODIUM ACETATE: -- mEq SODIUM PHOSPHATE: - mmol POTASSIUM CHLORIDE: 20 mEq POTASSIUM ACETATE: -- mEq POTASSIUM PHOSPHATE: 19 mmol MAGNESIUM: 12 mEq CALCIUM: 15 mEq INSULIN: 40 units MULTIPLE VITAMIN: 10 ml TRACE ELEMENTS: 0.5 ml(s) TPN PLAN: -Continues macros per apartment coordinator recommendations -Electrolytes within normal limits and patient to receive dialysis today. -CMP, Mag and Phos ordered for tomorrow. R: Continue same TPN with no additional adjustments at this time. Will monitor electrolytes, glucose, and tolerance to TPN. MARVIN RODNEY, [facility], 08/02/19 [id number]
[2019-08-02] MEDS: NOREPINEPHRINE VIAL 8 MG in IV DEXTROSE 5% 250 ML IV PRN (12:48)
--- NOTE | 2019-08-02 13:49 | RAD ---
CT chest without contrast, CT abdomen pelvis without contrast HISTORY: Fever, pancreatitis, ileus, trach CT CHEST: CT scan the chest was done without contrast. There is a tracheostomy tube in good position. There are large bilateral pleural effusions. There is atelectasis in both lung bases. There is no mediastinal adenopathy. Right arm PICC line extends to the superior vena cava. There is a temporary dialysis catheter extending to the vena cava near the atrium. IMPRESSION: 1. Large bilateral effusions. 2. Atelectasis of both lungs. End impression CT abdomen pelvis CT scan the abdomen pelvis was done following CT chest with contrast. NG tube extends into the stomach. Spleen is normal. There is no mass or hydronephrosis in the kidneys. There is a gallstone the gallbladder. A focal liver lesion is not identified. There is diffuse necrosis of the pancreas. There is peripancreatic fluid. The pattern is similar to the recent study. There is fluid in the paracolic gutters. There is retroperitoneal fluid surrounding the kidneys. Ascites extends into the pelvis. Ascites is similar to the prior study. There is no bowel obstruction. There is no free air. IMPRESSION: 1. Diffuse pancreatic necrosis. 2. A extensive retroperitoneal fluid and inflammation. 3. Cholelithiasis. 4. Moderate to large volume ascites with little change. PQRS Compliance Statement: One or more of the following individualized dose reduction techniques were utilized for this examination: 1. Automated exposure control 2. Adjustment of the mA and/or kV according to patient size 3. Use of iterative reconstruction technique Electronically signed by: Abe Mathias MD (08/02/2019 1:47 PM) [id number]
[2019-08-02] MEDS: MICAFUNGIN 100 MG in IV DEXTROSE 5% 100ML 100 ML IV SCH (14:00)
--- NOTE | 2019-08-02 14:00 | NUR ---
returned to room at 1330 after completing dialysis and ct of abdomen chest and pelvis. pt tolerated well. pt on levophed due to low bp in dialysis. interventional radiology at bedside placing left triple lumen catheter.
--- NOTE | 2019-08-02 14:53 | RAD ---
EXAM: CHEST AP ONLY INDICATION: Central line placement. TECHNIQUE: Single AP view COMPARISON: Earlier same day chest x-ray at 6:43 AM FINDINGS: Stable tracheostomy tube and right jugular approach dual-lumen central venous catheter as well as right PICC line. Enteric tube remains present passing below the diaphragms Patient's left jugular approach central venous catheter has been repositioned or replaced such that the tip better projects over the right atrium rather than over the azygos vein. The heart is obscured by bilateral pleural effusions. Great vessels show prominence of the aortic knob measuring up to 4.2 cm in maximum diameter. No hilar or mediastinal masses identified. Lungs show low lung volumes and bilateral basilar opacities compatible with atelectasis. No pneumothorax. Moderate bilateral pleural effusions remain present. There are no significant osseous abnormalities. IMPRESSION: Interval repositioning or replacement of a left jugular approach central venous catheter with tip projecting over the right atrium as described. No pneumothorax. Electronically signed by: Charan Dove MD (08/02/2019 2:50 PM) [id number]
[2019-08-02] MEDS ORDERED: 0.9 % SODIUM CHLORIDE 10 ML DISP.SYRIN. IV PRN ×3 (15:00)
--- NOTE | 2019-08-02 15:02 | RAD ---
Procedure: Ultrasound guided non-tunneled was internal jugular Central Venous Catheter Placement. The procedure, risk and complications to include bleeding, infection, pneumothorax and arrhythmia, were discussed at length with the patient's DPOA and they understood and wished to proceed. All questions were answered. Consent form signed. The left neck was prepped and draped using maximal sterile technique and a 1% Xylocaine was used for local anesthesia. Ultrasound-guided access: The neck was scanned by ultrasound and the left internal jugular vein is patent and compressible. An ultrasound image was saved and sent to PACS. Under ultrasound guidance, a single wall puncture was made into the vein followed by wire placement and tract dilation. A triple-lumen central venous catheter was advanced without resistance. Catheter was flushed and sutured to the skin. Sterile dressing was applied. Portable radiographic Image of the Chest: The central venous catheter tip is in the right atrium. Negative for pneumothorax. Complication: none Contrast: none Sedation: none The patient tolerated the procedure well and there were no immediate complications. Procedure was performed at bedside. Conclusion: Successful left internal jugular non-tunneled triple-lumen central venous catheter placement. Catheter is okay to use.
--- NOTE | 2019-08-02 15:46 | NUR ---
SS following up with discharge planning. SS discussed with RNEcho. No new changes. Pt remains on the vent with trach and TPN and hemodialysis. Pt's family working with [facility]CF[facility] to submit Medicaid application. SS will continue to follow for discharge planning.
--- NOTE | 2019-08-02 18:05 | NUR ---
trach care completed with new soft collar placed. picc line removed and catheter tip sent for culture. left ij triple lumen catheter ordered to use for blood draws, tpn and iv infusions. second blood culture set sent to lab via draw from new central line. levophed iv drip being titrated and weaning off of pt. louis catheter removed and new 16 kiswahili louis catheter placed without difficulty. pt calm and cooperative this afternoon. no bolus' of precedex required or another dose of ativan. one bolus of fentanyl given when placing new central line at bedside.
--- NOTE | 2019-08-02 20:35 | NUR ---
daughter called regarding results of today's CT scan. She was aware of the CT scan being worse. Daughter woul;d like to talk with providers regarding what to next. I spoke with Dr. Tillman. Per Lexa Villanueva is to talk with family in am
[2019-08-02] MEDS ORDERED: AMINO ACID IV SCH ×11 (22:00)
[2019-08-02] MEDS ORDERED: TOTAL PARENTERAL NUTRITION IV SCH ×11 (22:00)
[2019-08-02] MEDS ORDERED: [UNRECOGNIZED DRUG - OTHER] IV SCH ×11 (22:00)
[2019-08-02] MEDS ORDERED: DEXTROSE 70% IV SCH ×11 (22:00)
[2019-08-03] VITALS (23 sets, daily range): BP systolic 100–165; BP diastolic 54–91
[2019-08-03] MEDS: DEXMEDETOMIDINE 400 MCG in IV NORMAL SALINE 100ML 96 ML IV PRN ×9 (01:09→22:22)
[2019-08-03] MEDS: INSULIN LISPRO 300 UNITS/3 ML VIAL. SQ SCH ×4 (05:44→23:50)
[2019-08-03 06:06] LABS: BASO % 0 % (0-3); EOS % 1 % (0-3); HEMATOCRIT 25.2 % (36.0-47.0); HEMOGLOBIN 8.2 g/dL (12.0-15.5); LYMPH # 0.9 x10^3/uL (1.0-4.8); LYMPH % 16 % (24-48); MEAN CORPUSCULAR HEMOGLOBIN 32 pg (25-35); MEAN CORPUSCULAR HGB CONC 33 g/dL (31-37); MEAN CORPUSCULAR VOLUME 97 fL (79-100); MONO # 0.8 x10^3/uL (0.0-1.1); MONO % 13 % (0-9); NEUT % 70 % (31-73); PLATELET COUNT 433 x10^3/uL (140-400); RED BLOOD COUNT 2.61 x10^6/uL (3.50-5.40); RED CELL DISTRIBUTION WIDTH 18.6 % (11.5-14.5); WHITE BLOOD COUNT 5.8 x10^3/uL (4.0-11.0)
[2019-08-03 06:20] LABS: ALBUMIN 3.1 g/dL (3.4-5.0); CALCIUM 8.9 mg/dL (8.5-10.1); CREATININE 1.5 mg/dL (0.6-1.0); GFR 36.9; PHOSPHORUS 3.9 mg/dL (2.6-4.7); POTASSIUM 3.9 mmol/L (3.5-5.1); TOTAL BILIRUBIN 0.6 mg/dL (0.2-1.0); TOTAL PROTEIN 6.1 g/dL (6.4-8.2)
[2019-08-03] MEDS: PANTOPRAZOLE IV PUSH 40 MG VIAL. IVP SCH (07:38)
[2019-08-03] MEDS: HEPARIN for SUB-Q USE 5,000 UNIT/ML VIAL. SQ SCH ×2 (07:42→21:16)
--- NOTE | 2019-08-03 08:22 | PDOC ---
Infectious Disease Note Subjective Subjective Alert and asking questions Trach, vent FiO2 35 % PEEP 5 Now off levaphed less diarrhea TPN ROS ROS unable to assess Vital Sign Vital Signs Vital Signs Date Time Temp Pulse Resp B/P (MAP) Pulse Ox O2 Delivery O2 Flow Rate FiO2 08/03/19 08:13 16 99 Ventilator 08/03/19 06:00 82 116/66 (83) 08/03/19 03:59 99.0 99.0 08/03/19 01:42 6.0 Physical Exam PHYSICAL EXAM GENERAL: Alert and coop. mouthing words Appears comfortable has generalized anasarca HEENT: Pupils equal, + NGT, oral cavity dry NECK: Trach/vent LUNGS: Diminished aeration HEART: S1, S2, regular ABDOMEN: Distended, hypoactive BS, Rectal tube- out : Louis changed 08/01 EXTREMITIES: Generalized edema, no cyanosis, SCDs bilaterally DERMATOLOGIC: Warm and dry. No generalized rash. CENTRAL NERVOUS SYSTEM: Responsive and seems appropriate HDC, LIJ (08/01) and RUE-PICC removed 08/01 Labs Lab Laboratory Tests Test 08/02/19 09:00 08/02/19 14:37 08/02/19 17:27 08/02/19 23:34 White Blood Count 9.8 x10^3/uL (4.0-11.0) Red Blood Count 2.87 x10^6/uL (3.50-5.40) Hemoglobin 9.2 g/dL (12.0-15.5) Hematocrit 27.9 % (36.0-47.0) Mean Corpuscular Volume 97 fL (79-100) Mean Corpuscular Hemoglobin 32 pg (25-35) Mean Corpuscular Hemoglobin Concent 33 g/dL (31-37) Red Cell Distribution Width 19.2 % (11.5-14.5) Platelet Count 380 x10^3/uL (140-400) Sodium Level 137 mmol/L (136-145) Potassium Level 3.7 mmol/L (3.5-5.1) Chloride Level 98 mmol/L (98-107) Carbon Dioxide Level 29 mmol/L (21-32) Anion Gap 10 (6-14) Blood Urea Nitrogen 64 mg/dL (7-20) Creatinine 1.7 mg/dL (0.6-1.0) Estimated GFR (Cockcroft-Gault) 31.9 Glucose Level 166 mg/dL (70-99) Calcium Level 9.0 mg/dL (8.5-10.1) Glucose (Fingerstick) 153 mg/dL (70-99) 205 mg/dL (70-99) 167 mg/dL (70-99) Test 08/03/19 05:41 08/03/19 05:45 Glucose (Fingerstick) 130 mg/dL (70-99) White Blood Count 5.8 x10^3/uL (4.0-11.0) Red Blood Count 2.61 x10^6/uL (3.50-5.40) Hemoglobin 8.2 g/dL (12.0-15.5) Hematocrit 25.2 % (36.0-47.0) Mean Corpuscular Volume 97 fL (79-100) Mean Corpuscular Hemoglobin 32 pg (25-35) Mean Corpuscular Hemoglobin Concent 33 g/dL (31-37) Red Cell Distribution Width 18.6 % (11.5-14.5) Platelet Count 433 x10^3/uL (140-400) Neutrophils (%) (Auto) 70 % (31-73) Lymphocytes (%) (Auto) 16 % (24-48) Monocytes (%) (Auto) 13 % (0-9) Eosinophils (%) (Auto) 1 % (0-3) Basophils (%) (Auto) 0 % (0-3) Neutrophils # (Auto) 4.0 x10^3/uL (1.8-7.7) Lymphocytes # (Auto) 0.9 x10^3/uL (1.0-4.8) Monocytes # (Auto) 0.8 x10^3/uL (0.0-1.1) Eosinophils # (Auto) 0.0 x10^3/uL (0.0-0.7) Basophils # (Auto) 0.0 x10^3/uL (0.0-0.2) Sodium Level 138 mmol/L (136-145) Potassium Level 3.9 mmol/L (3.5-5.1) Chloride Level 101 mmol/L (98-107) Carbon Dioxide Level 29 mmol/L (21-32) Anion Gap 8 (6-14) Blood Urea Nitrogen 59 mg/dL (7-20) Creatinine 1.5 mg/dL (0.6-1.0) Estimated GFR (Cockcroft-Gault) 36.9 BUN/Creatinine Ratio 39 (6-20) Glucose Level 139 mg/dL (70-99) Calcium Level 8.9 mg/dL (8.5-10.1) Phosphorus Level 3.9 mg/dL (2.6-4.7) Magnesium Level 2.0 mg/dL (1.8-2.4) Total Bilirubin 0.6 mg/dL (0.2-1.0) Aspartate Amino Transf (AST/SGOT) 31 U/L (15-37) Alanine Aminotransferase (ALT/SGPT) 16 U/L (14-59) Alkaline Phosphatase 72 U/L (46-116) Total Protein 6.1 g/dL (6.4-8.2) Albumin 3.1 g/dL (3.4-5.0) Albumin/Globulin Ratio 1.0 (1.0-1.7) Micro CT Chest Abd/pelv 08/01 CT CHEST: CT scan the chest was done without contrast. There is a tracheostomy tube in good position. There are large bilateral pleural effusions. There is atelectasis in both lung bases. There is no mediastinal adenopathy. Right arm PICC line extends to the superior vena cava. There is a temporary dialysis catheter extending to the vena cava near the atrium. IMPRESSION: 1. Large bilateral effusions. 2. Atelectasis of both lungs. End impression CT abdomen pelvis CT scan the abdomen pelvis was done following CT chest with contrast. NG tube extends into the stomach. Spleen is normal. There is no mass or hydronephrosis in the kidneys. There is a gallstone the gallbladder. A focal liver lesion is not identified. There is diffuse necrosis of the pancreas. There is peripancreatic fluid. The pattern is similar to the recent study. There is fluid in the paracolic gutters. There is retroperitoneal fluid surrounding the kidneys. Ascites extends into the pelvis. Ascites is similar to the prior study. There is no bowel obstruction. There is no free air. IMPRESSION: 1. Diffuse pancreatic necrosis. 2. A extensive retroperitoneal fluid and inflammation. 3. Cholelithiasis. 4. Moderate to large volume ascites with little change. CT A/P, 07/27 IMPRESSION: 1. Increased ascites. 2. 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 Cholelithiasis with thickening of the gallbladder wall. 4. Persistent pleural effusions and atelectasis in the lung bases. 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 diff neg 07/10 Anemia - S/p PRBCs Plan Plan of Care F/u Blood cults 08/01 Change lines and louis today 08/01 ? Thoracentesis cont merrem (07/26) and Zyvox (07/28) and micafungin Add Flagyl 08/01 -previously on cefepime, flagyl & dapto Gen surgery following f/u BC from 07/27 neg to date Maintain aspiration precautions Anemia deferred to primary Critically ill D/w Dr. Villanueva D/w nursing WILLY BARAKAT MD Aug 03, 2019 08:22
--- NOTE | 2019-08-03 08:35 | PDOC ---
PROGRESS NOTES Chief Complaint Chief Complaint A/P: Respiratory failure requiring mechanical ventilation (on vent since 07/10) bilateral pleural effusions/pulm edema Sepsis Severe Acute gallstone pancreatitis (not a surgical candidate at this time) with necrosis Acute kidney failure now requiring dialysis Salpingitis Gallstones (Calculus of gallbladder with acute cholecystitis without obstruction) HTN Leukocytosis Hypoxia Uterine fibroid Intractable pain Intractable nausea Covid 19 negative. Acute on chronic anemia EEG: No seizure activity. ESRD on HD Hyperglycemia, persistently in 200s History of Present Illness History of Present Illness Ms Diaz is a 48yo F w/ PMHx HTN, prediabetes who presented to the emergency room with complaints of abdominal pain on 07/04/2019. Found with Lipase 35690, AST 401, ALT 249, Bilirubin 1.4. CT abdomen confirms pancreatic inflammation, peripancreatic fluid and inflammatory changes around the pancreas consistent with pancreatitis. Cholelithiasis and 1.4cm uterine fibroid as well as possible left salpingitis. Admitted for further care GI, General surgery, ID, Pulm consulted. 07/04: No urine output. Added dilaudid for pain, PICC placed per IR. Renal US negative.Seen bedside in ICU, given 2L additional NSS and albumin infusion. Still hypotensive, started on levophed. Repeat CT abdomen with necrosis. 07/05: O2 saturation 87% on nasal cannula oxygen. Dialysis catheter per nephrology 07/06: She is now on BiPAP appears more ill, now on dialysis 07/07: Seen on BiPAP. Her mother and another family member are present and seemed to be good support for her. Currently on dialysis. Appears critically ill 07/08: Overnight Tmax 101.7 , still on BiPAP FiO2 40%, still on low dose Levophed gtt, TPN initiated. On dialysis 07/24: Tracheostomy 07/30: S/p tracheostomy on vent spontaneous respirations with 5 of pressure support 35% FiO2, rectal tube and a Lind, off pressors 07/31: Off pressors. Seen on dialysis this morning. BUN 80. Tracking with her eyes. Still on vent via trach. 08/01: BUN 68, Cr 1.7. Temp 100.2F axillary. WBC 9.8. Still on vent via trach. Tracking reasonably well. In obvious discomfort. Removed PICC and CVC LIJ and replaced. Tips sent for culture. CT chest/abd/pelvis with bilateral pleural effusion and ascites. Renal function stable. Still on vent. More interactive today. Miming wish for food. Plan discussed for thoracentesis/paracentesis with daughters today. They were under impression patient was doing worse due to a miscommunication which has been clarified over the phone. Plan: Fungal cultures, removed PICC and IJ. D/w IR to replace left IJ Paracentesis/thoracentesis today Vitals Vitals Vital Signs Date Time Temp Pulse Resp B/P (MAP) Pulse Ox O2 Delivery O2 Flow Rate FiO2 08/03/19 08:13 16 99 Ventilator 08/03/19 06:00 82 116/66 (83) 08/03/19 03:59 99.0 99.0 08/03/19 01:42 6.0 Physical Exam Physical Exam GENERAL: Alert but not responsive/agitated some . Feels warm - has generalized anasarca HEENT: Pupils equal, + NGT, oral cavity dry NECK: Trach/vent LUNGS: Diminished aeration HEART: S1, S2, regular ABDOMEN: Distended, hypoactive BS, Rectal tube- out : Lind (07/04) EXTREMITIES: Generalized edema, no cyanosis, SCDs bilaterally DERMATOLOGIC: Warm and dry. No generalized rash. CENTRAL NERVOUS SYSTEM: Opens eyes HDC, LIJ(07/24) and RUE-PICC without signs of complications General: Cooperative, No acute distress Heart: Other (increased rate) Lungs: Other (dimished in BLL) Abdomen: Other (distended ) Extremities: No edema, Other (SOME CLUBBING ) Skin: Other (mottling noted to extremities ) Labs LABS Laboratory Tests Test 08/02/19 09:00 08/02/19 14:37 08/02/19 17:27 08/02/19 23:34 White Blood Count 9.8 x10^3/uL (4.0-11.0) Red Blood Count 2.87 x10^6/uL (3.50-5.40) Hemoglobin 9.2 g/dL (12.0-15.5) Hematocrit 27.9 % (36.0-47.0) Mean Corpuscular Volume 97 fL (79-100) Mean Corpuscular Hemoglobin 32 pg (25-35) Mean Corpuscular Hemoglobin Concent 33 g/dL (31-37) Red Cell Distribution Width 19.2 % (11.5-14.5) Platelet Count 380 x10^3/uL (140-400) Sodium Level 137 mmol/L (136-145) Potassium Level 3.7 mmol/L (3.5-5.1) Chloride Level 98 mmol/L (98-107) Carbon Dioxide Level 29 mmol/L (21-32) Anion Gap 10 (6-14) Blood Urea Nitrogen 64 mg/dL (7-20) Creatinine 1.7 mg/dL (0.6-1.0) Estimated GFR (Cockcroft-Gault) 31.9 Glucose Level 166 mg/dL (70-99) Calcium Level 9.0 mg/dL (8.5-10.1) Glucose (Fingerstick) 153 mg/dL (70-99) 205 mg/dL (70-99) 167 mg/dL (70-99) Test 08/03/19 05:41 08/03/19 05:45 Glucose (Fingerstick) 130 mg/dL (70-99) White Blood Count 5.8 x10^3/uL (4.0-11.0) Red Blood Count 2.61 x10^6/uL (3.50-5.40) Hemoglobin 8.2 g/dL (12.0-15.5) Hematocrit 25.2 % (36.0-47.0) Mean Corpuscular Volume 97 fL (79-100) Mean Corpuscular Hemoglobin 32 pg (25-35) Mean Corpuscular Hemoglobin Concent 33 g/dL (31-37) Red Cell Distribution Width 18.6 % (11.5-14.5) Platelet Count 433 x10^3/uL (140-400) Neutrophils (%) (Auto) 70 % (31-73) Lymphocytes (%) (Auto) 16 % (24-48) Monocytes (%) (Auto) 13 % (0-9) Eosinophils (%) (Auto) 1 % (0-3) Basophils (%) (Auto) 0 % (0-3) Neutrophils # (Auto) 4.0 x10^3/uL (1.8-7.7) Lymphocytes # (Auto) 0.9 x10^3/uL (1.0-4.8) Monocytes # (Auto) 0.8 x10^3/uL (0.0-1.1) Eosinophils # (Auto) 0.0 x10^3/uL (0.0-0.7) Basophils # (Auto) 0.0 x10^3/uL (0.0-0.2) Sodium Level 138 mmol/L (136-145) Potassium Level 3.9 mmol/L (3.5-5.1) Chloride Level 101 mmol/L (98-107) Carbon Dioxide Level 29 mmol/L (21-32) Anion Gap 8 (6-14) Blood Urea Nitrogen 59 mg/dL (7-20) Creatinine 1.5 mg/dL (0.6-1.0) Estimated GFR (Cockcroft-Gault) 36.9 BUN/Creatinine Ratio 39 (6-20) Glucose Level 139 mg/dL (70-99) Calcium Level 8.9 mg/dL (8.5-10.1) Phosphorus Level 3.9 mg/dL (2.6-4.7) Magnesium Level 2.0 mg/dL (1.8-2.4) Total Bilirubin 0.6 mg/dL (0.2-1.0) Aspartate Amino Transf (AST/SGOT) 31 U/L (15-37) Alanine Aminotransferase (ALT/SGPT) 16 U/L (14-59) Alkaline Phosphatase 72 U/L (46-116) Total Protein 6.1 g/dL (6.4-8.2) Albumin 3.1 g/dL (3.4-5.0) Albumin/Globulin Ratio 1.0 (1.0-1.7) Assessment and Plan Assessmemt and Plan Problems Medical Problems: (1) Acute pancreatitis Status: Acute (2) Cholelithiasis Status: Acute Comment Review of Relevant I have reviewed the following items kolby (where applicable) has been applied. Labs Laboratory Tests Test 08/01/19 14:11 08/01/19 15:00 08/01/19 18:26 08/02/19 01:07 Glucose (Fingerstick) 151 mg/dL (70-99) 213 mg/dL (70-99) 174 mg/dL (70-99) O2 Saturation 94 % (92-99) Arterial Blood pH 7.46 (7.35-7.45) Arterial Blood pCO2 at Patient Temp 38 mmHg (35-46) Arterial Blood pO2 at Patient Temp 74 mmHg (75-108) Arterial Blood HCO3 26 mmol/L (21-28) Arterial Blood Base Excess 2 mmol/L (-3-3) FiO2 35 Test 08/02/19 06:39 08/02/19 09:00 08/02/19 14:37 08/02/19 17:27 Glucose (Fingerstick) 157 mg/dL (70-99) 153 mg/dL (70-99) 205 mg/dL (70-99) White Blood Count 9.8 x10^3/uL (4.0-11.0) Red Blood Count 2.87 x10^6/uL (3.50-5.40) Hemoglobin 9.2 g/dL (12.0-15.5) Hematocrit 27.9 % (36.0-47.0) Mean Corpuscular Volume 97 fL (79-100) Mean Corpuscular Hemoglobin 32 pg (25-35) Mean Corpuscular Hemoglobin Concent 33 g/dL (31-37) Red Cell Distribution Width 19.2 % (11.5-14.5) Platelet Count 380 x10^3/uL (140-400) Sodium Level 137 mmol/L (136-145) Potassium Level 3.7 mmol/L (3.5-5.1) Chloride Level 98 mmol/L (98-107) Carbon Dioxide Level 29 mmol/L (21-32) Anion Gap 10 (6-14) Blood Urea Nitrogen 64 mg/dL (7-20) Creatinine 1.7 mg/dL (0.6-1.0) Estimated GFR (Cockcroft-Gault) 31.9 Glucose Level 166 mg/dL (70-99) Calcium Level 9.0 mg/dL (8.5-10.1) Test 08/02/19 23:34 08/03/19 05:41 08/03/19 05:45 Glucose (Fingerstick) 167 mg/dL (70-99) 130 mg/dL (70-99) White Blood Count 5.8 x10^3/uL (4.0-11.0) Red Blood Count 2.61 x10^6/uL (3.50-5.40) Hemoglobin 8.2 g/dL (12.0-15.5) Hematocrit 25.2 % (36.0-47.0) Mean Corpuscular Volume 97 fL (79-100) Mean Corpuscular Hemoglobin 32 pg (25-35) Mean Corpuscular Hemoglobin Concent 33 g/dL (31-37) Red Cell Distribution Width 18.6 % (11.5-14.5) Platelet Count 433 x10^3/uL (140-400) Neutrophils (%) (Auto) 70 % (31-73) Lymphocytes (%) (Auto) 16 % (24-48) Monocytes (%) (Auto) 13 % (0-9) Eosinophils (%) (Auto) 1 % (0-3) Basophils (%) (Auto) 0 % (0-3) Neutrophils # (Auto) 4.0 x10^3/uL (1.8-7.7) Lymphocytes # (Auto) 0.9 x10^3/uL (1.0-4.8) Monocytes # (Auto) 0.8 x10^3/uL (0.0-1.1) Eosinophils # (Auto) 0.0 x10^3/uL (0.0-0.7) Basophils # (Auto) 0.0 x10^3/uL (0.0-0.2) Sodium Level 138 mmol/L (136-145) Potassium Level 3.9 mmol/L (3.5-5.1) Chloride Level 101 mmol/L (98-107) Carbon Dioxide Level 29 mmol/L (21-32) Anion Gap 8 (6-14) Blood Urea Nitrogen 59 mg/dL (7-20) Creatinine 1.5 mg/dL (0.6-1.0) Estimated GFR (Cockcroft-Gault) 36.9 BUN/Creatinine Ratio 39 (6-20) Glucose Level 139 mg/dL (70-99) Calcium Level 8.9 mg/dL (8.5-10.1) Phosphorus Level 3.9 mg/dL (2.6-4.7) Magnesium Level 2.0 mg/dL (1.8-2.4) Total Bilirubin 0.6 mg/dL (0.2-1.0) Aspartate Amino Transf (AST/SGOT) 31 U/L (15-37) Alanine Aminotransferase (ALT/SGPT) 16 U/L (14-59) Alkaline Phosphatase 72 U/L (46-116) Total Protein 6.1 g/dL (6.4-8.2) Albumin 3.1 g/dL (3.4-5.0) Albumin/Globulin Ratio 1.0 (1.0-1.7) Laboratory Tests Test 08/02/19 09:00 08/02/19 14:37 08/02/19 17:27 08/02/19 23:34 White Blood Count 9.8 x10^3/uL (4.0-11.0) Red Blood Count 2.87 x10^6/uL (3.50-5.40) Hemoglobin 9.2 g/dL (12.0-15.5) Hematocrit 27.9 % (36.0-47.0) Mean Corpuscular Volume 97 fL (79-100) Mean Corpuscular Hemoglobin 32 pg (25-35) Mean Corpuscular Hemoglobin Concent 33 g/dL (31-37) Red Cell Distribution Width 19.2 % (11.5-14.5) Platelet Count 380 x10^3/uL (140-400) Sodium Level 137 mmol/L (136-145) Potassium Level 3.7 mmol/L (3.5-5.1) Chloride Level 98 mmol/L (98-107) Carbon Dioxide Level 29 mmol/L (21-32) Anion Gap 10 (6-14) Blood Urea Nitrogen 64 mg/dL (7-20) Creatinine 1.7 mg/dL (0.6-1.0) Estimated GFR (Cockcroft-Gault) 31.9 Glucose Level 166 mg/dL (70-99) Calcium Level 9.0 mg/dL (8.5-10.1) Glucose (Fingerstick) 153 mg/dL (70-99) 205 mg/dL (70-99) 167 mg/dL (70-99) Test 08/03/19 05:41 08/03/19 05:45 Glucose (Fingerstick) 130 mg/dL (70-99) White Blood Count 5.8 x10^3/uL (4.0-11.0) Red Blood Count 2.61 x10^6/uL (3.50-5.40) Hemoglobin 8.2 g/dL (12.0-15.5) Hematocrit 25.2 % (36.0-47.0) Mean Corpuscular Volume 97 fL (79-100) Mean Corpuscular Hemoglobin 32 pg (25-35) Mean Corpuscular Hemoglobin Concent 33 g/dL (31-37) Red Cell Distribution Width 18.6 % (11.5-14.5) Platelet Count 433 x10^3/uL (140-400) Neutrophils (%) (Auto) 70 % (31-73) Lymphocytes (%) (Auto) 16 % (24-48) Monocytes (%) (Auto) 13 % (0-9) Eosinophils (%) (Auto) 1 % (0-3) Basophils (%) (Auto) 0 % (0-3) Neutrophils # (Auto) 4.0 x10^3/uL (1.8-7.7) Lymphocytes # (Auto) 0.9 x10^3/uL (1.0-4.8) Monocytes # (Auto) 0.8 x10^3/uL (0.0-1.1) Eosinophils # (Auto) 0.0 x10^3/uL (0.0-0.7) Basophils # (Auto) 0.0 x10^3/uL (0.0-0.2) Sodium Level 138 mmol/L (136-145) Potassium Level 3.9 mmol/L (3.5-5.1) Chloride Level 101 mmol/L (98-107) Carbon Dioxide Level 29 mmol/L (21-32) Anion Gap 8 (6-14) Blood Urea Nitrogen 59 mg/dL (7-20) Creatinine 1.5 mg/dL (0.6-1.0) Estimated GFR (Cockcroft-Gault) 36.9 BUN/Creatinine Ratio 39 (6-20) Glucose Level 139 mg/dL (70-99) Calcium Level 8.9 mg/dL (8.5-10.1) Phosphorus Level 3.9 mg/dL (2.6-4.7) Magnesium Level 2.0 mg/dL (1.8-2.4) Total Bilirubin 0.6 mg/dL (0.2-1.0) Aspartate Amino Transf (AST/SGOT) 31 U/L (15-37) Alanine Aminotransferase (ALT/SGPT) 16 U/L (14-59) Alkaline Phosphatase 72 U/L (46-116) Total Protein 6.1 g/dL (6.4-8.2) Albumin 3.1 g/dL (3.4-5.0) Albumin/Globulin Ratio 1.0 (1.0-1.7) Microbiology 07/31/19 Urine Culture - Final, Complete 07/31/19 Urine Culture Result 1 (ALEXANDRA) - Final, Complete 07/29/19 Blood Culture - Preliminary, Resulted NO GROWTH AFTER 4 DAYS Medications Current Medications Sodium Chloride 1,000 ml @ 1,000 mls/hr Q1H IV Last administered on 07/04/19at 03:00; Start 07/04/19 at 03:00; Stop 07/04/19 at 03:59; Status DC Ondansetron HCl (Zofran) 4 mg 1X ONCE IVP Last administered on 07/04/19at 03:27; Start 07/04/19 at 03:00; Stop 07/04/19 at 03:01; Status DC Morphine Sulfate (Morphine Sulfate) 4 mg 1X ONCE IV ; Start 07/04/19 at 03:00; Stop 07/04/19 at 03:01; Status Cancel Ketorolac Tromethamine (Toradol 30mg Vial) 30 mg 1X ONCE IV Last administered on 07/04/19at 02:54; Start 07/04/19 at 03:00; Stop 07/04/19 at 03:01; Status DC Fentanyl Citrate (Fentanyl 2ml Vial) 25 mcg 1X ONCE IVP Last administered on 07/04/19at 03:23; Start 07/04/19 at 03:30; Stop 07/04/19 at 03:31; Status DC Fentanyl Citrate (Fentanyl 2ml Vial) 100 mcg STK-MED ONCE .ROUTE ; Start 07/04/19 at 03:18; Stop 07/04/19 at 03:18; Status DC Iohexol (Omnipaque 350 Mg/ml) 90 ml 1X ONCE IV Last administered on 07/04/19at 03:25; Start 07/04/19 at 03:30; Stop 07/04/19 at 03:31; Status DC Info (CONTRAST GIVEN -- Rx MONITORING) 1 each PRN DAILY PRN MC SEE COMMENTS; Start 07/04/19 at 03:30; Stop 07/06/19 at 03:29; Status DC Hydromorphone HCl (Dilaudid) 0.5 mg 1X ONCE IV Last administered on 07/04/19at 03:55; Start 07/04/19 at 04:30; Stop 07/04/19 at 04:32; Status DC Ondansetron HCl (Zofran) 4 mg PRN Q8HRS PRN IV NAUSEA/VOMITING 1ST CHOICE; Start 07/04/19 at 05:00; Stop 07/04/19 at 09:27; Status DC Morphine Sulfate (Morphine Sulfate) 2 mg PRN Q2HR PRN IV SEVERE PAIN 7-10 Last administered on 07/05/19at 12:26; Start 07/04/19 at 05:00; Stop 07/05/19 at 14:15; Status DC Sodium Chloride 1,000 ml @ 125 mls/hr Q8H IV Last administered on 07/04/19at 20:56; Start 07/04/19 at 05:00; Stop 07/05/19 at 04:59; Status DC Hydromorphone HCl (Dilaudid) 0.5 mg PRN Q3HRS PRN IV SEVERE PAIN 7-10 Last administered on 07/05/19at 10:06; Start 07/04/19 at 05:00; Stop 07/05/19 at 12:01; Status DC Piperacillin Sod/ Tazobactam Sod 4.5 gm/Sodium Chloride 100 ml @ 200 mls/hr 1X ONCE IV Last administered on 07/04/19at 05:44; Start 07/04/19 at 06:00; Stop 07/04/19 at 06:29; Status DC Ondansetron HCl (Zofran) 4 mg PRN Q4HRS PRN IV NAUSEA/VOMITING 1ST CHOICE Last administered on 07/31/19at 09:56; Start 07/04/19 at 09:30 Insulin Human Lispro (HumaLOG) 0-9 UNITS Q6HRS SQ Last administered on 08/02/19at 23:38; Start 07/04/19 at 09:30 Dextrose (Dextrose 50%-Water Syringe) 12.5 gm PRN Q15MIN PRN IV SEE COMMENTS; Start 07/04/19 at 09:30 Pantoprazole Sodium (PROTONIX VIAL for IV PUSH) 40 mg DAILYAC IVP Last administered on 08/03/19at 07:38; Start 07/04/19 at 11:30 Prochlorperazine Edisylate (Compazine) 10 mg PRN Q6HRS PRN IV NAUSEA/VOMITING, 2nd CHOICE Last administered on 07/05/19at 00:42; Start 07/04/19 at 17:45 Atenolol (Tenormin) 100 mg DAILY PO ; Start 07/05/19 at 09:00; Stop 07/04/19 at 20:08; Status DC Metoprolol Tartrate (Lopressor Vial) 2.5 mg Q6HRS IVP Last administered on 07/05/19at 05:51; Start 07/04/19 at 20:15; Stop 07/05/19 at 10:02; Status DC Metoprolol Tartrate (Lopressor Vial) 5 mg Q6HRS IVP Last administered on 07/14/19at 00:12; Start 07/05/19 at 10:15; Stop 07/16/19 at 08:48; Status DC Hydromorphone HCl (Dilaudid) 1 mg PRN Q3HRS PRN IV SEVERE PAIN 7-10 Last administered on 07/11/19at 05:13; Start 07/05/19 at 12:00; Stop 07/19/19 at 00:25; Status DC Lidocaine HCl (Buffered Lidocaine 1%) 3 ml STK-MED ONCE .ROUTE ; Start 07/05/19 at 12:55; Stop 07/05/19 at 12:56; Status DC Albumin Human 500 ml @ 125 mls/hr 1X ONCE IV Last administered on 07/05/19at 14:33; Start 07/05/19 at 14:30; Stop 07/05/19 at 18:32; Status DC Norepinephrine Bitartrate 8 mg/ Dextrose 258 ml @ 17.299 mls/ hr CONT PRN IV PER PROTOCOL Last administered on 08/02/19at 12:48; Start 07/05/19 at 15:30 Sodium Chloride 1,000 ml @ 125 mls/hr Q8H IV Last administered on 07/05/19at 21:04; Start 07/05/19 at 16:00; Stop 07/06/19 at 02:42; Status DC Albumin Human 500 ml @ 125 mls/hr PRN BID PRN IV After every 2L NSS & BP < 90mm Last administered on 07/20/19at 14:21; Start 07/05/19 at 16:00 Iohexol (Omnipaque 300 Mg/ml) 60 ml 1X ONCE IV Last administered on 07/05/19at 17:20; Start 07/05/19 at 17:00; Stop 07/05/19 at 17:01; Status DC Info (CONTRAST GIVEN -- Rx MONITORING) 1 each PRN DAILY PRN MC SEE COMMENTS; Start 07/05/19 at 17:00; Stop 07/07/19 at 16:59; Status DC Meropenem 1 gm/ Sodium Chloride 100 ml @ 200 mls/hr Q8HRS IV Last administered on 07/06/19at 05:45; Start 07/05/19 at 20:00; Stop 07/06/19 at 08:48; Status DC Furosemide (Lasix) 40 mg 1X ONCE IVP Last administered on 07/05/19at 22:12; Start 07/05/19 at 22:30; Stop 07/05/19 at 22:31; Status DC Calcium Chloride 1000 mg/Sodium Chloride 110 ml @ 220 mls/hr 1X ONCE IV Last administered on 07/05/19at 22:11; Start 07/05/19 at 22:30; Stop 07/05/19 at 22:59; Status DC Albuterol Sulfate (Ventolin Neb Soln) 2.5 mg 1X ONCE NEB Last administered on 07/06/19at 00:56; Start 07/05/19 at 22:30; Stop 07/05/19 at 22:31; Status DC Insulin Human Regular (HumuLIN R VIAL) 5 unit 1X ONCE IV Last administered on 07/05/19at 22:14; Start 07/05/19 at 22:30; Stop 07/05/19 at 22:31; Status DC Magnesium Sulfate 50 ml @ 25 mls/hr 1X ONCE IV Last administered on 07/06/19at 02:57; Start 07/06/19 at 03:00; Stop 07/06/19 at 04:59; Status DC Calcium Gluconate 1000 mg/Sodium Chloride 110 ml @ 220 mls/hr 1X ONCE IV Last administered on 07/06/19at 02:46; Start 07/06/19 at 03:00; Stop 07/06/19 at 03:29; Status DC Sodium Chloride 1,000 ml @ 200 mls/hr Q5H IV Last administered on 07/06/19at 02:46; Start 07/06/19 at 03:00; Stop 07/06/19 at 10:21; Status DC Calcium Gluconate 1000 mg/Sodium Chloride 110 ml @ 220 mls/hr 1X ONCE IV Last administered on 07/06/19at 03:21; Start 07/06/19 at 03:30; Stop 07/06/19 at 03:59; Status DC Sodium Bicarbonate 50 meq/Sodium Chloride 1,050 ml @ 75 mls/hr Q14H IV Last administered on 07/10/19at 21:10; Start 07/06/19 at 07:30; Stop 07/11/19 at 10:28; Status DC Calcium Gluconate 2000 mg/Sodium Chloride 120 ml @ 220 mls/hr 1X ONCE IV Last administered on 07/06/19at 09:05; Start 07/06/19 at 07:30; Stop 07/06/19 at 08:02; Status DC Lidocaine HCl (Xylocaine-Mpf 1% 2ml Vial) 2 ml STK-MED ONCE .ROUTE ; Start 07/06/19 at 08:47; Stop 07/06/19 at 08:47; Status DC Meropenem 500 mg/ Sodium Chloride 50 ml @ 100 mls/hr Q12HR IV Last administered on 07/11/19at 21:01; Start 07/06/19 at 18:00; Stop 07/12/19 at 07:58; Status DC Lidocaine HCl (Buffered Lidocaine 1%) 3 ml STK-MED ONCE .ROUTE ; Start 07/06/19 at 09:46; Stop 07/06/19 at 09:46; Status DC Lidocaine HCl (Buffered Lidocaine 1%) 6 ml 1X ONCE INJ Last administered on 07/06/19at 10:26; Start 07/06/19 at 10:15; Stop 07/06/19 at 10:16; Status DC Info (Tpn Per Pharmacy) 1 each PRN DAILY PRN MC SEE COMMENTS Last administered on 08/02/19at 12:34; Start 07/06/19 at 12:00 Sodium Chloride 1,000 ml @ 1,000 mls/hr Q1H PRN IV hypotension; Start 07/06/19 at 12:07; Stop 07/06/19 at 18:06; Status DC Diphenhydramine HCl (Benadryl) 25 mg 1X PRN PRN IV ITCHING; Start 07/06/19 at 12:15; Stop 07/07/19 at 12:14; Status DC Diphenhydramine HCl (Benadryl) 25 mg 1X PRN PRN IV ITCHING; Start 07/06/19 at 12:15; Stop 07/07/19 at 12:14; Status DC Sodium Chloride 1,000 ml @ 400 mls/hr Q2H30M PRN IV PATENCY; Start 07/06/19 at 12:07; Stop 07/07/19 at 00:06; Status DC Info (PHARMACY MONITORING -- do not chart) 1 each PRN DAILY PRN MC SEE COMMENTS; Start 07/06/19 at 12:15; Stop 07/08/19 at 08:13; Status DC Sodium Chloride 90 meq/Calcium Gluconate 10 meq/ Multivitamins 10 ml/Chromium/ Copper/Manganese/ Seleni/Zn 1 ml/ Total Parenteral Nutrition/Amino Acids/Dextrose/ Fat Emulsion Intravenous 55.005 ml @ 2.292 mls/hr TPN CONT IV ; Start 07/06/19 at 22:00; Stop 07/06/19 at 12:33; Status DC Info (Tpn Per Pharmacy) 1 each PRN DAILY PRN MC SEE COMMENTS; Start 07/06/19 at 12:30; Status UNV Sodium Chloride 90 meq/Calcium Gluconate 10 meq/ Multivitamins 10 ml/Chromium/ Copper/Manganese/ Seleni/Zn 0.5 ml/ Total Parenteral Nutrition/Amino Acids/Dextrose/ Fat Emulsion Intravenous 1,512 ml @ 63 mls/hr TPN CONT IV Last administered on 07/06/19at 22:06; Start 07/06/19 at 22:00; Stop 07/07/19 at 21:59; Status DC Calcium Carbonate/ Glycine (Tums) 500 mg PRN AFTMEALHC PRN PO INDIGESTION; Start 07/06/19 at 17:45 Calcium Gluconate (Calcium Gluconate) 2,000 mg 1X ONCE IVP Last administered on 07/07/19at 02:19; Start 07/07/19 at 02:15; Stop 07/07/19 at 02:16; Status DC Calcium Chloride 3000 mg/Sodium Chloride 1,030 ml @ 50 mls/hr [id number] IV Last administered on 07/09/19at 02:17; Start 07/07/19 at 08:00; Stop 07/09/19 at 15:23; Status DC Lorazepam (Ativan Inj) 1 mg PRN Q4HRS PRN IVP ANXIETY / AGITATION, 2nd choic Last administered on 08/02/19at 11:06; Start 07/07/19 at 09:00 Sodium Chloride 1,000 ml @ 1,000 mls/hr Q1H PRN IV hypotension; Start 07/07/19 at 08:56; Stop 07/07/19 at 14:55; Status DC Albumin Human 200 ml @ 200 mls/hr 1X PRN PRN IV Hypotension; Start 07/07/19 at 09:00; Stop 07/07/19 at 14:59; Status DC Diphenhydramine HCl (Benadryl) 25 mg 1X PRN PRN IV ITCHING; Start 07/07/19 at 09:00; Stop 07/08/19 at 08:59; Status DC Diphenhydramine HCl (Benadryl) 25 mg 1X PRN PRN IV ITCHING; Start 07/07/19 at 09:00; Stop 07/08/19 at 08:59; Status DC Sodium Chloride 1,000 ml @ 400 mls/hr Q2H30M PRN IV PATENCY; Start 07/07/19 at 08:56; Stop 07/07/19 at 20:55; Status DC Info (PHARMACY MONITORING -- do not chart) 1 each PRN DAILY PRN MC SEE COMMENTS; Start 07/07/19 at 09:00; Status UNV Info (PHARMACY MONITORING -- do not chart) 1 each PRN DAILY PRN MC SEE COMMENTS; Start 07/07/19 at 09:00; Stop 07/08/19 at 08:13; Status DC Digoxin (Lanoxin) 500 mcg 1X ONCE IV Last administered on 07/07/19at 10:04; Start 07/07/19 at 10:00; Stop 07/07/19 at 10:01; Status DC Digoxin (Lanoxin) 125 mcg 1X ONCE IV Last administered on 07/07/19at 17:10; Start 07/07/19 at 18:00; Stop 07/07/19 at 18:01; Status DC Magnesium Sulfate 100 ml @ 25 mls/hr 1X ONCE IV Last administered on 07/07/19at 12:48; Start 07/07/19 at 13:00; Stop 07/07/19 at 16:59; Status DC Sodium Chloride 90 meq/Magnesium Sulfate 10 meq/ Calcium Gluconate 20 meq/ Multivitamins 10 ml/Chromium/ Copper/Manganese/ Seleni/Zn 0.5 ml/ Total Parenteral Nutrition/Amino Acids/Dextrose/ Fat Emulsion Intravenous 1,512 ml @ 63 mls/hr TPN CONT IV Last administered on 07/07/19at 22:25; Start 07/07/19 at 22:00; Stop 07/08/19 at 21:59; Status DC Sodium Chloride 1,000 ml @ 1,000 mls/hr Q1H PRN IV hypotension; Start 07/08/19 at 08:05; Stop 07/08/19 at 14:04; Status DC Albumin Human 200 ml @ 200 mls/hr 1X ONCE IV Last administered on 07/08/19at 08:57; Start 07/08/19 at 08:15; Stop 07/08/19 at 09:14; Status DC Diphenhydramine HCl (Benadryl) 25 mg 1X PRN PRN IV ITCHING; Start 07/08/19 at 08:15; Stop 07/09/19 at 08:14; Status DC Diphenhydramine HCl (Benadryl) 25 mg 1X PRN PRN IV ITCHING; Start 07/08/19 at 08:15; Stop 07/09/19 at 08:14; Status DC Sodium Chloride 1,000 ml @ 400 mls/hr Q2H30M PRN IV PATENCY; Start 07/08/19 at 08:05; Stop 07/08/19 at 20:04; Status DC Info (PHARMACY MONITORING -- do not chart) 1 each PRN DAILY PRN MC SEE COMMENTS; Start 07/08/19 at 08:15; Stop 07/12/19 at 07:57; Status DC Sodium Chloride 90 meq/Potassium Chloride 15 meq/ Potassium Phosphate 10 mmol/ Magnesium Sulfate 10 meq/Calcium Gluconate 20 meq/ Multivitamins 10 ml/Chromium/ Copper/Manganese/ Seleni/Zn 0.5 ml/ Total Parenteral Nutrition/Amino Acids/Dextrose/ Fat Emulsion Intravenous 1,512 ml @ 63 mls/hr TPN CONT IV Last administered on 07/08/19at 21:01; Start 07/08/19 at 22:00; Stop 07/09/19 at 21:59; Status DC Potassium Chloride/Water 100 ml @ 100 mls/hr 1X ONCE IV Last administered on 07/08/19at 14:09; Start 07/08/19 at 14:00; Stop 07/08/19 at 14:59; Status DC Benzocaine (Hurricaine One) 1 spray 1X ONCE MM Last administered on 07/08/19at 16:38; Start 07/08/19 at 14:30; Stop 07/08/19 at 14:31; Status DC Lidocaine HCl (Glydo (Lidocaine) Jelly) 1 ramu 1X ONCE MM Last administered on 07/08/19at 16:38; Start 07/08/19 at 14:30; Stop 07/08/19 at 14:31; Status DC Linezolid/Dextrose 300 ml @ 300 mls/hr Q12HR IV Last administered on 07/14/19at 21:04; Start 07/08/19 at 20:00; Stop 07/15/19 at 07:50; Status DC Acetaminophen (Tylenol) 650 mg PRN Q6HRS PRN PO MILD PAIN / TEMP; Start 07/09/19 at 03:30; Stop 07/09/19 at 03:36; Status DC Acetaminophen (Tylenol) 650 mg PRN Q6HRS PRN PEG MILD PAIN / TEMP Last administered on 07/14/19at 07:35; Start 07/09/19 at 03:36 Sodium Chloride 1,000 ml @ 1,000 mls/hr Q1H PRN IV hypotension; Start 07/09/19 at 07:50; Stop 07/09/19 at 13:49; Status DC Albumin Human 200 ml @ 200 mls/hr 1X PRN PRN IV Hypotension; Start 07/09/19 at 08:00; Stop 07/09/19 at 13:59; Status DC Sodium Chloride (Normal Saline Flush) 10 ml 1X PRN PRN IV AP catheter pack; Start 07/09/19 at 08:00; Stop 07/10/19 at 07:59; Status DC Sodium Chloride (Normal Saline Flush) 10 ml 1X PRN PRN 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; Start 07/09/19 at 08:00; Stop 07/10/19 at 07:59; Status DC Sodium Chloride 1,000 ml @ 400 mls/hr Q2H30M PRN IV PATENCY; Start 07/09/19 at 07:50; Stop 07/09/19 at 19:49; Status DC Info (PHARMACY MONITORING -- do not chart) 1 each PRN DAILY PRN MC SEE COMMENTS; Start 07/09/19 at 08:00; Status UNV Info (PHARMACY MONITORING -- do not chart) 1 each PRN DAILY PRN MC SEE COMMENTS; Start 07/09/19 at 08:00; Stop 07/11/19 at 08:25; Status DC Sodium Chloride 90 meq/Potassium Chloride 15 meq/ Potassium Phosphate 10 mmol/ Magnesium Sulfate 10 meq/Calcium Gluconate 20 meq/ Multivitamins 10 ml/Chromium/ Copper/Manganese/ Seleni/Zn 0.5 ml/ Total Parenteral Nutrition/Amino Acids/Dextrose/ Fat Emulsion Intravenous 1,512 ml @ 63 mls/hr TPN CONT IV Last administered on 07/09/19at 20:57; Start 07/09/19 at 22:00; Stop 07/10/19 at 21:59; Status DC Sodium Chloride 90 meq/Potassium Chloride 15 meq/ Potassium Phosphate 15 mmol/ Magnesium Sulfate 10 meq/Calcium Gluconate 20 meq/ Multivitamins 10 ml/Chromium/ Copper/Manganese/ Seleni/Zn 0.5 ml/ Total Parenteral Nutrition/Amino Acids/Dextrose/ Fat Emulsion Intravenous 1,512 ml @ 63 mls/hr TPN CONT IV ; Start 07/10/19 at 22:00; Stop 07/10/19 at 14:16; Status DC Sodium Chloride 90 meq/Potassium Chloride 15 meq/ Potassium Phosphate 15 mmol/ Magnesium Sulfate 10 meq/Calcium Gluconate 20 meq/ Multivitamins 10 ml/Chromium/ Copper/Manganese/ Seleni/Zn 0.5 ml/ Total Parenteral Nutrition/Amino Acids/Dextrose/ Fat Emulsion Intravenous 1,200 ml @ 50 mls/hr TPN CONT IV ; Start 07/10/19 at 22:00; Stop 07/10/19 at 14:17; Status DC Sodium Chloride 90 meq/Potassium Chloride 15 meq/ Potassium Phosphate 10 mmol/ Magnesium Sulfate 10 meq/Calcium Gluconate 20 meq/ Multivitamins 10 ml/Chromium/ Copper/Manganese/ Seleni/Zn 0.5 ml/ Total Parenteral Nutrition/Amino Acid s/Dextrose/ Fat Emulsion Intravenous 1,200 ml @ 50 mls/hr TPN CONT IV Last administered on 07/10/19at 23:29; Start 07/10/19 at 22:00; Stop 07/11/19 at 21:59; Status DC Sodium Chloride 1,000 ml @ 1,000 mls/hr Q1H PRN IV hypotension; Start 07/11/19 at 07:28; Stop 07/11/19 at 13:27; Status DC Albumin Human 200 ml @ 200 mls/hr 1X ONCE IV Last administered on 07/11/19at 08:51; Start 07/11/19 at 07:30; Stop 07/11/19 at 08:29; Status DC Diphenhydramine HCl (Benadryl) 25 mg 1X PRN PRN IV ITCHING; Start 07/11/19 at 07:30; Stop 07/12/19 at 07:29; Status DC Diphenhydramine HCl (Benadryl) 25 mg 1X PRN PRN IV ITCHING; Start 07/11/19 at 07:30; Stop 07/12/19 at 07:29; Status DC Sodium Chloride 1,000 ml @ 400 mls/hr Q2H30M PRN IV PATENCY; Start 07/11/19 at 07:28; Stop 07/11/19 at 19:27; Status DC Info (PHARMACY MONITORING -- do not chart) 1 each PRN DAILY PRN MC SEE COMMENTS; Start 07/11/19 at 07:30; Stop 07/22/19 at 13:01; Status DC Metronidazole 100 ml @ 100 mls/hr Q6HRS IV Last administered on 07/27/19at 06 :26; Start 07/11/19 at 08:30; Stop 07/27/19 at 09:58; Status DC Micafungin Sodium 100 mg/Dextrose 100 ml @ 100 mls/hr Q24H IV Last administered on 08/02/19at 14:00; Start 07/11/19 at 09:00 Propofol 0 ml @ As Directed STK-MED ONCE IV ; Start 07/11/19 at 07:53; Stop 07/11/19 at 07:53; Status DC Etomidate (Amidate) 20 mg STK-MED ONCE IV ; Start 07/11/19 at 07:53; Stop 07/11/19 at 07:54; Status DC Midazolam HCl (Versed) 5 mg STK-MED ONCE .ROUTE ; Start 07/11/19 at 07:57; Stop 07/11/19 at 07:57; Status DC Fentanyl Citrate 30 ml @ 0 mls/hr CONT PRN IV SEE PROTOCOL Last administered on 08/03/19at 08:13; Start 07/11/19 at 08:15 Artificial Tears (Artificial Tears) 1 drop PRN Q1HR PRN OU DRY EYE, 1st choice; Start 07/11/19 at 08:15 Midazolam HCl 50 mg/Sodium Chloride 50 ml @ 0 mls/hr CONT PRN IV SEE PROTOCOL Last administered on 07/14/19at 22:39; Start 07/11/19 at 08:15; Stop 07/16/19 at 15:59; Status DC Etomidate (Amidate) 8 mg 1X ONCE IV Last administered on 07/11/19at 08:33; Start 07/11/19 at 08:30; Stop 07/11/19 at 08:31; Status DC Succinylcholine Chloride (Anectine) 120 mg 1X ONCE IV Last administered on 07/11/19at 08:34; Start 07/11/19 at 08:30; Stop 07/11/19 at 08:31; Status DC Midazolam HCl (Versed) 5 mg 1X ONCE IV ; Start 07/11/19 at 08:30; Stop 07/11/19 at 08:31; Status DC Potassium Chloride 15 meq/ Bicarbonate Dialysis Soln w/ out KCl 5,007.5 ml @ 1,000 mls/ hr Q5H1M IV Last administered on 07/12/19at 11:11; Start 07/11/19 at 12:00; Stop 07/12/19 at 11:15; Status DC Potassium Chloride 15 meq/ Bicarbonate Dialysis Soln w/ out KCl 5,007.5 ml @ 1,000 mls/ hr Q5H1M IV Last administered on 07/12/19at 11:12; Start 07/11/19 at 12:00; Stop 07/12/19 at 11:17; Status DC Potassium Chloride 15 meq/ Bicarbonate Dialysis Soln w/ out KCl 5,007.5 ml @ 1,000 mls/ hr Q5H1M IV Last administered on 07/12/19at 11:11; Start 07/11/19 at 12:00; Stop 07/12/19 at 11:19; Status DC Sodium Chloride 90 meq/Potassium Chloride 15 meq/ Potassium Phosphate 10 mmol/ Magnesium Sulfate 10 meq/Calcium Gluconate 20 meq/ Multivitamins 10 ml/Chromium/ Copper/Manganese/ Seleni/Zn 0.5 ml/ Total Parenteral Nutrition/Amino Acids/Dextrose/ Fat Emulsion Intravenous 1,400 ml @ 58.333 mls/ hr TPN CONT IV Last administered on 07/11/19at 21:42; Start 07/11/19 at 22:00; Stop 07/12/19 at 21:59; Status DC Heparin Sodium (Porcine) (Heparin Sodium) 5,000 unit Q8HRS SQ Last administered on 07/16/19at 05:55; Start 07/11/19 at 15:00; Stop 07/16/19 at 13:28; Status DC Meropenem 500 mg/ Sodium Chloride 50 ml @ 100 mls/hr Q6HRS IV Last administered on 07/13/19at 06:00; Start 07/12/19 at 09:00; Stop 07/13/19 at 07:29; Status DC Potassium Phosphate 20 mmol/ Sodium Chloride 106.6667 ml @ 51.667 m... 1X ONCE IV Last administered on 07/12/19at 11:22; Start 07/12/19 at 10:15; Stop 07/12/19 at 12:18; Status DC Acetaminophen (Tylenol Supp) 650 mg PRN Q6HRS PRN SD MILD PAIN / TEMP Last administered on 08/02/19at 08:01; Start 07/12/19 at 10:30 Potassium Chloride/Water 100 ml @ 100 mls/hr Q1H IV Last administered on 07/12/19at 12:12; Start 07/12/19 at 11:00; Stop 07/12/19 at 12:59; Status DC Potassium Chloride 20 meq/ Bicarbonate Dialysis Soln w/ out KCl 5,010 ml @ 1,000 mls/hr Q5H1M IV Last administered on 07/13/19at 08:48; Start 07/12/19 at 12:00; Stop 07/13/19 at 13:03; Status DC Potassium Chloride 20 meq/ Bicarbonate Dialysis Soln w/ out KCl 5,010 ml @ 1,000 mls/hr Q5H1M IV Last administered on 07/17/19at 14:52; Start 07/12/19 at 11:30; Stop 07/17/19 at 19:59; Status DC Potassium Chloride 20 meq/ Bicarbonate Dialysis Soln w/ out KCl 5,010 ml @ 1,000 mls/hr Q5H1M IV Last administered on 07/17/19at 14:53; Start 07/12/19 at 11:30; Stop 07/17/19 at 19:59; Status DC Sodium Chloride 90 meq/Potassium Chloride 15 meq/ Potassium Phosphate 15 mmol/ Magnesium Sulfate 10 meq/Calcium Gluconate 15 meq/ Multivitamins 10 ml/Chromium/ Copper/Manganese/ Seleni/Zn 0.5 ml/ Total Parenteral Nutrition/Amino Acids/Dextrose/ Fat Emulsion Intravenous 1,400 ml @ 58.333 mls/ hr TPN CONT IV Last administered on 07/12/19at 22:17; Start 07/12/19 at 22:00; Stop 07/13/19 at 21:59; Status DC Cefepime HCl (Maxipime) 2 gm Q12HR IVP Last administered on 07/26/19at 20:56; Start 07/13/19 at 09:00; Stop 07/27/19 at 09:58; Status DC Daptomycin 500 mg/ Sodium Chloride 50 ml @ 100 mls/hr Q48H IV Last administered on 07/29/19at 09:57; Start 07/13/19 at 08:30; Stop 07/29/19 at 10:07; Status DC Lidocaine HCl (Buffered Lidocaine 1%) 3 ml 1X ONCE INJ Last administered on 07/13/19at 10:27; Start 07/13/19 at 10:30; Stop 07/13/19 at 10:31; Status DC Potassium Phosphate 20 mmol/ Sodium Chloride 106.6667 ml @ 51.667 m... 1X ONCE IV Last administered on 07/13/19at 12:51; Start 07/13/19 at 13:00; Stop 07/13/19 at 15:03; Status DC Sodium Chloride 90 meq/Potassium Chloride 15 meq/ Potassium Phosphate 18 mmol/ Magnesium Sulfate 8 meq/Calcium Gluconate 15 meq/ Multivitamins 10 ml/Chromium/ Copper/Manganese/ Seleni/Zn 0.5 ml/ Total Parenteral Nutrition/Amino Acids/Dextrose/ Fat Emulsion Intravenous 1,400 ml @ 58.333 mls/ hr TPN CONT IV Last administered on 07/13/19at 22:16; Start 07/13/19 at 22:00; Stop 07/14/19 at 21:59; Status DC Potassium Chloride 20 meq/ Bicarbonate Dialysis Soln w/ out KCl 5,010 ml @ 1,000 mls/hr Q5H1M IV Last administered on 07/17/19at 14:54; Start 07/13/19 at 16:00; Stop 07/17/19 at 19:59; Status DC Multi-Ingred Cream/Lotion/Oil/ Oint (Artificial Tears Eye Ointment) 1 ramu PRN Q1HR PRN OU DRY EYE, 2nd choice Last administered on 08/01/19at 08:19; Start at 17:30 Sodium Chloride 90 meq/Potassium Chloride 15 meq/ Potassium Phosphate 18 mmol/ Magnesium Sulfate 8 meq/Calcium Gluconate 15 meq/ Multivitamins 10 ml/Chromium/ Copper/Manganese/ Seleni/Zn 0.5 ml/ Total Parenteral Nutrition/Amino Acids/Dextrose/ Fat Emulsion Intravenous 1,400 ml @ 58.333 mls/ hr TPN CONT IV Last administered on 07/14/19at 22:00; Start 07/14/19 at 22:00; Stop 07/15/19 at 21:59; Status DC Albumin Human 500 ml @ 125 mls/hr 1X ONCE IV ; Start 07/14/19 at 14:15; Stop 07/14/19 at 18:14; Status DC Sodium Chloride 90 meq/Potassium Chloride 15 meq/ Potassium Phosphate 18 mmol/ Magnesium Sulfate 8 meq/Calcium Gluconate 15 meq/ Multivitamins 10 ml/Chromium/ Copper/Manganese/ Seleni/Zn 0.5 ml/ Insulin Human Regular 10 unit/ Total Par enteral Nutrition/Amino Acids/Dextrose/ Fat Emulsion Intravenous 1,400 ml @ 58.333 mls/ hr TPN CONT IV Last administered on 07/15/19at 21:43; Start 07/15/19 at 22:00; Stop 07/16/19 at 21:59; Status DC Lidocaine HCl (Buffered Lidocaine 1%) 3 ml STK-MED ONCE .ROUTE ; Start 07/13/19 at 10:00; Stop 07/15/19 at 13:57; Status DC Midazolam HCl 100 mg/Sodium Chloride 100 ml @ 7 mls/hr CONT PRN IV SEE PROTOCOL Last administered on 07/27/19at 15:35; Start 07/16/19 at 16:00 Sodium Chloride 90 meq/Potassium Chloride 15 meq/ Potassium Phosphate 18 mmol/ Magnesium Sulfate 8 meq/Calcium Gluconate 15 meq/ Multivitamins 10 ml/Chromium/ Copper/Manganese/ Seleni/Zn 0.5 ml/ Insulin Human Regular 15 unit/ Total Parenteral Nutrition/Amino Acids/Dextrose/ Fat Emulsion Intravenous 1,400 ml @ 58.333 mls/ hr TPN CONT IV Last administered on 07/16/19at 20:34; Start 07/16/19 at 22:00; Stop 07/17/19 at 21:59; Status DC Info (Icu Electrolyte Protocol) 1 ea CONT PRN PRN MC PER PROTOCOL; Start 07/17/19 at 13:15 Sodium Chloride 90 meq/Potassium Chloride 15 meq/ Potassium Phosphate 18 mmol/ Magnesium Sulfate 8 meq/Calcium Gluconate 15 meq/ Multivitamins 10 ml/Chromium/ Copper/Manganese/ Seleni/Zn 0.5 ml/ Insulin Human Regular 15 unit/ Total Parenteral Nutrition/Amino Acids/Dextrose/ Fat Emulsion Intravenous 1,400 ml @ 58.333 mls/ hr TPN CONT IV Last administered on 07/17/19at 22:05; Start 07/17/19 at 22:00; Stop 07/18/19 at 21:59; Status DC Potassium Chloride 15 meq/ Bicarbonate Dialysis Soln w/ out KCl 5,007.5 ml @ 1,000 mls/ hr Q5H1M IV Last administered on 07/20/19at 18:14; Start 07/17/19 at 20:00; Stop 07/21/19 at 13:08; Status DC Potassium Chloride 15 meq/ Bicarbonate Dialysis Soln w/ out KCl 5,007.5 ml @ 1,000 mls/ hr Q5H1M IV Last administered on 07/20/19at 18:14; Start 07/17/19 at 20:00; Stop 07/21/19 at 13:08; Status DC Potassium Chloride 15 meq/ Bicarbonate Dialysis Soln w/ out KCl 5,007.5 ml @ 1,000 mls/ hr Q5H1M IV Last administered on 07/20/19at 18:14; Start 07/17/19 at 20:00; Stop 07/21/19 at 13:08; Status DC Iohexol (Omnipaque 240 Mg/ml) 30 ml 1X ONCE PO Last administered on 07/18/19at 11:30; Start 07/18/19 at 11:30; Stop 07/18/19 at 11:33; Status DC Info (CONTRAST GIVEN -- Rx MONITORING) 1 each PRN DAILY PRN MC SEE COMMENTS; Start 07/18/19 at 11:45; Stop 07/20/19 at 11:44; Status DC Sodium Chloride 90 meq/Potassium Chloride 15 meq/ Potassium Phosphate 18 mmol/ Magnesium Sulfate 8 meq/Calcium Gluconate 15 meq/ Multivitamins 10 ml/Chromium/ Copper/Manganese/ Seleni/Zn 0.5 ml/ Insulin Human Regular 15 unit/ Total Parenteral Nutrition/Amino Acids/Dextrose/ Fat Emulsion Intravenous 1,400 ml @ 58.333 mls/ hr TPN CONT IV Last administered on 07/18/19at 21:47; Start 07/18/19 at 22:00; Stop 07/19/19 at 21:59; Status DC Sodium Chloride 90 meq/Potassium Chloride 15 meq/ Potassium Phosphate 18 mmol/ Magnesium Sulfate 8 meq/Calcium Gluconate 15 meq/ Multivitamins 10 ml/Chromium/ Copper/Manganese/ Seleni/Zn 0.5 ml/ Insulin Human Regular 20 unit/ Total Parenteral Nutrition/Amino Acids/Dextrose/ Fat Emulsion Intravenous 1,400 ml @ 58.333 mls/ hr TPN CONT IV Last administered on 07/19/19at 21:36; Start 07/19/19 at 22:00; Stop 07/20/19 at 21:59; Status DC Alteplase, Recombinant (Cathflo For Central Catheter Clearance) 1 mg 1X ONCE INT CAT Last administered on 07/19/19at 20:03; Start 07/19/19 at 19:30; Stop 07/19/19 at 19:46; Status DC Alteplase, Recombinant (Cathflo For Central Catheter Clearance) 1 mg 1X ONCE INT CAT Last administered on 07/19/19at 22:05; Start 07/19/19 at 22:00; Stop 07/19/19 at 22:01; Status DC Sodium Chloride 90 meq/Potassium Chloride 15 meq/ Potassium Phosphate 18 mmol/ Magnesium Sulfate 8 meq/Calcium Gluconate 15 meq/ Multivitamins 10 ml/Chromium/ Copper/Manganese/ Seleni/Zn 0.5 ml/ Insulin Human Regular 20 unit/ Total Parenteral Nutrition/Amino Acids/Dextrose/ Fat Emulsion Intravenous 1,400 ml @ 58.333 mls/ hr TPN CONT IV Last administered on 07/20/19at 21:30; Start 07/20/19 at 22:00; Stop 07/21/19 at 21:59; Status DC Dexmedetomidine HCl 400 mcg/ Sodium Chloride 100 ml @ 0 mls/hr CONT PRN IV ANXIETY / AGITATION Last administered on 08/03/19at 08:05; Start 07/21/19 at 08:15 Sodium Chloride 500 ml @ 500 mls/hr 1X PRN PRN IV ELEVATED BP, SEE COMMENTS; Start 07/21/19 at 08:15 Atropine Sulfate (ATROPINE 0.5mg SYRINGE) 0.5 mg PRN Q5MIN PRN IV SEE COMMENTS; Start 07/21/19 at 08:15 Furosemide (Lasix) 20 mg 1X ONCE IVP Last administered on 07/21/19at 08:19; Start 07/21/19 at 08:15; Stop 07/21/19 at 08:16; Status DC Lidocaine HCl (Buffered Lidocaine 1%) 3 ml STK-MED ONCE .ROUTE ; Start 07/21/19 at 08:39; Stop 07/21/19 at 08:39; Status DC Lidocaine HCl (Buffered Lidocaine 1%) 6 ml 1X ONCE INJ Last administered on 07/21/19at 09:05; Start 07/21/19 at 09:00; Stop 07/21/19 at 09:06; Status DC Sodium Chloride 90 meq/Potassium Chloride 15 meq/ Potassium Phosphate 18 mmol/ Magnesium Sulfate 8 meq/Calcium Gluconate 15 meq/ Multivitamins 10 ml/Chromium/ Copper/Manganese/ Seleni/Zn 0.5 ml/ Insulin Human Regular 20 unit/ Total Parenteral Nutrition/Amino Acids/Dextrose/ Fat Emulsion Intravenous 1,400 ml @ 58.333 mls/ hr TPN CONT IV Last administered on 07/21/19at 22:45; Start 07/21/19 at 22:00; Stop 07/22/19 at 21:59; Status DC Sodium Chloride 1,000 ml @ 1,000 mls/hr Q1H PRN IV hypotension; Start 07/22/19 at 07:30; Stop 07/22/19 at 13:29; Status DC Albumin Human 200 ml @ 200 mls/hr 1X PRN PRN IV Hypotension Last administered on 07/22/19at 09:36; Start 07/22/19 at 07:30; Stop 07/22/19 at 13:29; Status DC Sodium Chloride (Normal Saline Flush) 10 ml 1X PRN PRN IV AP catheter pack; Start 07/22/19 at 07:30; Stop 07/22/19 at 21:29; Status DC Sodium Chloride (Normal Saline Flush) 10 ml 1X PRN PRN 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; Start 07/22/19 at 07:30; Stop 07/23/19 at 07:29; Status DC Sodium Chloride 1,000 ml @ 400 mls/hr Q2H30M PRN IV PATENCY; Start 07/22/19 at 07:30; Stop 07/22/19 at 19:29; Status DC Info (PHARMACY MONITORING -- do not chart) 1 each PRN DAILY PRN MC SEE COMMENTS; Start 07/22/19 at 07:30; Stop 07/22/19 at 13:02; Status DC Info (PHARMACY MONITORING -- do not chart) 1 each PRN DAILY PRN MC SEE COMMENTS; Start 07/22/19 at 07:30; Stop 07/24/19 at 12:45; Status DC Sodium Chloride 90 meq/Potassium Chloride 15 meq/ Potassium Phosphate 10 mmol/ Magnesium Sulfate 8 meq/Calcium Gluconate 15 meq/ Multivitamins 10 ml/Chromium/ Copper/Manganese/ Seleni/Zn 0.5 ml/ Insulin Human Regular 25 unit/ Total Parenteral Nutrition/Amino Acids/Dextrose/ Fat Emulsion Intravenous 1,400 ml @ 58.333 mls/ hr TPN CONT IV Last administered on 07/22/19at 22:19; Start 07/22/19 at 22:00; Stop 07/23/19 at 21:59; Status DC Heparin Sodium (Porcine) (Heparin Sodium) 5,000 unit Q12HR SQ Last administered on 08/03/19at 07:42; Start 07/22/19 at 21:00 Ondansetron HCl (Zofran) 4 mg PRN Q6HRS PRN IV NAUSEA/VOMITING; Start 07/25/19 at 07:00; Stop 07/26/19 at 06:59; Status DC Fentanyl Citrate (Fentanyl 2ml Vial) 25 mcg PRN Q5MIN PRN IV MILD PAIN 1-3; Start 07/25/19 at 07:00; Stop 07/26/19 at 06:59; Status DC Fentanyl Citrate (Fentanyl 2ml Vial) 50 mcg PRN Q5MIN PRN IV MODERATE TO SEVERE PAIN; Start 07/25/19 at 07:00; Stop 07/26/19 at 06:59; Status DC Ringer's Solution 1,000 ml @ 30 mls/hr Q24H IV ; Start 07/25/19 at 07:00; Stop 07/25/19 at 18:59; Status DC Lidocaine HCl (Xylocaine-Mpf 1% 2ml Vial) 2 ml PRN 1X PRN ID PRIOR TO IV START; Start 07/25/19 at 07:00; Stop 07/26/19 at 06:59; Status DC Prochlorperazine Edisylate (Compazine) 5 mg PACU PRN PRN IV NAUSEA, MRX1; Start 07/25/19 at 07:00; Stop 07/26/19 at 06:59; Status DC Sodium Chloride 1,000 ml @ 1,000 mls/hr Q1H PRN IV hypotension; Start 07/23/19 at 09:10; Stop 07/23/19 at 15:09; Status DC Albumin Human 200 ml @ 200 mls/hr 1X PRN PRN IV Hypotension Last administered on 07/23/19at 10:10; Start 07/23/19 at 09:15; Stop 07/23/19 at 15:14; Status DC Sodium Chloride 1,000 ml @ 400 mls/hr Q2H30M PRN IV PATENCY; Start 07/23/19 at 09:10; Stop 07/23/19 at 21:09; Status DC Info (PHARMACY MONITORING -- do not chart) 1 each PRN DAILY PRN MC SEE COMMENTS; Start 07/23/19 at 09:15; Stop 07/24/19 at 12:45; Status DC Info (PHARMACY MONITORING -- do not chart) 1 each PRN DAILY PRN MC SEE COMMENTS; Start 07/23/19 at 09:15; Stop 07/24/19 at 12:45; Status DC Sodium Chloride 90 meq/Potassium Chloride 15 meq/ Potassium Phosphate 10 mmol/ Magnesium Sulfate 8 meq/Calcium Gluconate 15 meq/ Multivitamins 10 ml/Chromium/ Copper/Manganese/ Seleni/Zn 0.5 ml/ Insulin Human Regular 25 unit/ Total Parenteral Nutrition/Amino Acids/Dextrose/ Fat Emulsion Intravenous 1,400 ml @ 58.333 mls/ hr TPN CONT IV Last administered on 07/23/19at 22:10; Start 07/23/19 at 22:00; Stop 07/24/19 at 21:59; Status DC Magnesium Sulfate 50 ml @ 25 mls/hr PRN DAILY PRN IV for Mag < 1.7 on am labs; Start 07/24/19 at 09:15 Sodium Chloride 90 meq/Potassium Chloride 15 meq/ Potassium Phosphate 10 mmol/ Magnesium Sulfate 8 meq/Calcium Gluconate 15 meq/ Multivitamins 10 ml/Chromium/ Copper/Manganese/ Seleni/Zn 0.5 ml/ Insulin Human Regular 25 unit/ Total Parent eral Nutrition/Amino Acids/Dextrose/ Fat Emulsion Intravenous 1,400 ml @ 58.333 mls/ hr TPN CONT IV Last administered on 07/24/19at 21:20; Start 07/24/19 at 22:00; Stop 07/25/19 at 21:59; Status DC Sodium Chloride 1,000 ml @ 1,000 mls/hr Q1H PRN IV hypotension; Start 07/24/19 at 12:23; Stop 07/24/19 at 18:22; Status DC Albumin Human 200 ml @ 200 mls/hr 1X ONCE IV Last administered on 07/24/19at 13:34; Start 07/24/19 at 12:30; Stop 07/24/19 at 13:29; Status DC Diphenhydramine HCl (Benadryl) 25 mg 1X PRN PRN IV ITCHING; Start 07/24/19 at 12:30; Stop 07/25/19 at 12:29; Status DC Diphenhydramine HCl (Benadryl) 25 mg 1X PRN PRN IV ITCHING; Start 07/24/19 at 12:30; Stop 07/25/19 at 12:29; Status DC Info (PHARMACY MONITORING -- do not chart) 1 each PRN DAILY PRN MC SEE COMMENTS; Start 07/24/19 at 12:30; Status Cancel Bupivacaine HCl/ Epinephrine Bitart (Sensorcain-Epi 0.5%-1:[id number] Mpf) 30 ml STK-MED ONCE .ROUTE Last administered on 07/25/19at 11:44; Start 07/25/19 at 11:00; Stop 07/25/19 at 11:01; Status DC Cellulose (Surgicel Fibrillar 1x2) 1 each STK-MED ONCE .ROUTE ; Start 07/25/19 at 11:00; Stop 4/6/20 at 11:01; Status DC Sodium Chloride 90 meq/Potassium Chloride 15 meq/ Potassium Phosphate 10 mmol/ Magnesium Sulfate 12 meq/Calcium Gluconate 15 meq/ Multivitamins 10 ml/Chromium/ Copper/Manganese/ Seleni/Zn 0.5 ml/ Insulin Human Regular 25 unit/ Total Parenteral Nutrition/Amino Acids/Dextrose/ Fat Emulsion Intravenous 1,400 ml @ 58.333 mls/ hr TPN CONT IV Last administered on 07/25/19at 22:24; Start 07/25/19 at 22:00; Stop 07/26/19 at 21:59; Status DC Propofol 20 ml @ As Directed STK-MED ONCE IV ; Start 07/25/19 at 11:07; Stop 07/25/19 at 11:07; Status DC Cellulose (Surgicel Hemostat 4x8) 1 each STK-MED ONCE .ROUTE Last administered on 07/25/19at 11:44; Start 07/25/19 at 11:55; Stop 07/25/19 at 11:56; Status DC Sevoflurane (Ultane) 60 ml STK-MED ONCE IH ; Start 07/25/19 at 12:46; Stop 07/25/19 at 12:46; Status DC Sodium Chloride 1,000 ml @ 1,000 mls/hr Q1H PRN IV hypotension; Start 07/25/19 at 13:51; Stop 07/25/19 at 19:50; Status DC Albumin Human 200 ml @ 200 mls/hr 1X PRN PRN IV Hypotension Last administered on 07/25/19at 14:51; Start 07/25/19 at 14:00; Stop 07/25/19 at 19:59; Status DC Diphenhydramine HCl (Benadryl) 25 mg 1X PRN PRN IV ITCHING; Start 07/25/19 at 14:00; Stop 07/26/19 at 13:59; Status DC Diphenhydramine HCl (Benadryl) 25 mg 1X PRN PRN IV ITCHING; Start 07/25/19 at 14:00; Stop 07/26/19 at 13:59; Status DC Sodium Chloride 1,000 ml @ 400 mls/hr Q2H30M PRN IV PATENCY; Start 07/25/19 at 13:51; Stop 07/26/19 at 01:50; Status DC Info (PHARMACY MONITORING -- do not chart) 1 each PRN DAILY PRN MC SEE COMMENTS; Start 07/25/19 at 14:00; Stop 07/28/19 at 08:16; Status DC Heparin Sodium (Porcine) (Hep Lock Adult) 500 unit STK-MED ONCE IVP ; Start 07/26/19 at 09:29; Stop 07/26/19 at 09:30; Status DC Sodium Chloride 1,000 ml @ 1,000 mls/hr Q1H PRN IV hypotension; Start 07/26/19 at 10:43; Stop 07/26/19 at 16:42; Status DC Sodium Chloride 1,000 ml @ 400 mls/hr Q2H30M PRN IV PATENCY; Start 07/26/19 at 10:43; Stop 07/26/19 at 22:42; Status DC Info (PHARMACY MONITORING -- do not chart) 1 each PRN DAILY PRN MC SEE COMMENTS; Start 07/26/19 at 10:45; Status UNV Info (PHARMACY MONITORING -- do not chart) 1 each PRN DAILY PRN MC SEE COMMENTS; Start 07/26/19 at 10:45; Status UNV Sodium Chloride 90 meq/Potassium Chloride 15 meq/ Magnesium Sulfate 12 meq/Calcium Gluconate 15 meq/ Multivitamins 10 ml/Chromium/ Copper/Manganese/ Seleni/Zn 0.5 ml/ Insulin Human Regular 25 unit/ Total Parenteral Nutrition/Amino Acids/Dextrose/ Fat Emulsion Intravenous 1,400 ml @ 58.333 mls/ hr TPN CONT IV Last administered on 07/26/19at 22:13; Start 07/26/19 at 22:00; Stop 07/27/19 at 21:59; Status DC Sodium Chloride 1,000 ml @ 1,000 mls/hr Q1H PRN IV hypotension; Start 07/27/19 at 07:50; Stop 07/27/19 at 13:49; Status DC Albumin Human 200 ml @ 200 mls/hr 1X ONCE IV ; Start 07/27/19 at 08:00; Stop 07/27/19 at 08:53; Status DC Diphenhydramine HCl (Benadryl) 25 mg 1X PRN PRN IV ITCHING; Start 07/27/19 at 08:00; Stop 07/28/19 at 07:59; Status DC Diphenhydramine HCl (Benadryl) 25 mg 1X PRN PRN IV ITCHING; Start 07/27/19 at 08:00; Stop 07/28/19 at 07:59; Status DC Info (PHARMACY MONITORING -- do not chart) 1 each PRN DAILY PRN MC SEE COMMENTS; Start 07/27/19 at 08:00; Stop 07/28/19 at 08:16; Status DC Albumin Human 50 ml @ 50 mls/hr 1X ONCE IV ; Start 07/27/19 at 08:53; Stop 07/27/19 at 08:56; Status DC Albumin Human 200 ml @ 50 mls/hr PRN 1X PRN IV HYPOTENSION Last administered on 08/02/19at 11:54; Start 07/27/19 at 09:00 Meropenem 500 mg/ Sodium Chloride 50 ml @ 100 mls/hr Q12H IV Last administered on 08/02/19at 21:54; Start 07/27/19 at 10:00 Sodium Chloride 90 meq/Magnesium Sulfate 12 meq/ Calcium Gluconate 15 meq/ Multivitamins 10 ml/Chromium/ Copper/Manganese/ Seleni/Zn 0.5 ml/ Insulin Human Regular 25 unit/ Total Parenteral Nutrition/Amino Acids/Dextrose/ Fat Emulsion Intravenous 1,400 ml @ 58.333 mls/ hr TPN CONT IV Last administered on 07/27/19at 21:41; Start 07/27/19 at 22:00; Stop 07/28/19 at 21:59; Status DC Sodium Chloride 1,000 ml @ 1,000 mls/hr Q1H PRN IV hypotension; Start 07/28/19 at 07:58; Stop 07/28/19 at 13:57; Status DC Albumin Human 200 ml @ 200 mls/hr 1X PRN PRN IV Hypotension Last administered on 07/28/19at 09:30; Start 07/28/19 at 08:00; Stop 07/28/19 at 13:59; Status DC Sodium Chloride 1,000 ml @ 400 mls/hr Q2H30M PRN IV PATENCY; Start 07/28/19 at 07:58; Stop 07/28/19 at 19:57; Status DC Info (PHARMACY MONITORING -- do not chart) 1 each PRN DAILY PRN MC SEE COMMENTS; Start 07/28/19 at 08:00; Status Cancel Info (PHARMACY MONITORING -- do not chart) 1 each PRN DAILY PRN MC SEE COMMENTS; Start 07/28/19 at 08:15; Status UNV Sodium Chloride 90 meq/Potassium Phosphate 5 mmol/ Magnesium Sulfate 12 meq/Calcium Gluconate 15 meq/ Multivitamins 10 ml/Chromium/ Copper/Manganese/ Seleni/Zn 0.5 ml/ Insulin Human Regular 30 unit/ Total Parenteral Nutrition/Amino Acids/Dextrose/ Fat Emulsion Intravenous 1,400 ml @ 58.333 mls/ hr TPN CONT IV Last administered on 07/28/19at 22:08; Start 07/28/19 at 22:00; Stop 07/29/19 at 21:59; Status DC Linezolid/Dextrose 300 ml @ 300 mls/hr Q12HR IV Last administered on 08/03/19at 07:38; Start 07/29/19 at 11:00 Sodium Chloride 90 meq/Potassium Phosphate 15 mmol/ Magnesium Sulfate 12 meq/Calcium Gluconate 15 meq/ Multivitamins 10 ml/Chromium/ Copper/Manganese/ Seleni/Zn 0.5 ml/ Insulin Human Regular 30 unit/ Total Parenteral Nutrition/Amino Acids/Dextrose/ Fat Emulsion Intravenous 1,400 ml @ 58.333 mls/ hr TPN CONT IV Last administered on 07/29/19at 21:49; Start 07/29/19 at 22:00; Stop 07/30/19 at 21:59; Status DC Sodium Chloride 90 meq/Potassium Phosphate 15 mmol/ Magnesium Sulfate 12 meq/Calcium Gluconate 15 meq/ Multivitamins 10 ml/Chromium/ Copper/Manganese/ Seleni/Zn 0.5 ml/ Insulin Human Regular 40 unit/ Total Parenteral Nutrition/Amino Acids/Dextrose/ Fat Emulsion Intravenous 1,400 ml @ 58.333 mls/ hr TPN CONT IV Last administered on 07/30/19at 21:21; Start 07/30/19 at 22:00; Stop 07/31/19 at 21:59; Status DC Sodium Chloride 1,000 ml @ 1,000 mls/hr Q1H PRN IV hypotension; Start 07/30/19 at 13:26; Stop 07/30/19 at 19:25; Status DC Albumin Human 200 ml @ 200 mls/hr 1X PRN PRN IV Hypotension Last administered on 07/30/19at 15:00; Start 07/30/19 at 13:30; Stop 07/30/19 at 19:29; Status DC Sodium Chloride (Normal Saline Flush) 10 ml 1X PRN PRN IV AP catheter pack; S tart 07/30/19 at 13:30; Stop 07/31/19 at 13:29; Status DC Sodium Chloride (Normal Saline Flush) 10 ml 1X PRN PRN 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; Start 07/30/19 at 13:30; Stop 07/31/19 at 13:29; Status DC Sodium Chloride 1,000 ml @ 400 mls/hr Q2H30M PRN IV PATENCY; Start 07/30/19 at 13:26; Stop 07/31/19 at 01:25; Status DC Info (PHARMACY MONITORING -- do not chart) 1 each PRN DAILY PRN MC SEE COMMENTS; Start 07/30/19 at 13:30; Stop 07/30/19 at 13:33; Status DC Info (PHARMACY MONITORING -- do not chart) 1 each PRN DAILY PRN MC SEE COMMENTS; Start 07/30/19 at 13:30; Stop 07/30/19 at 13:34; Status DC Sodium Chloride 90 meq/Potassium Phosphate 19 mmol/ Magnesium Sulfate 12 meq/Calcium Gluconate 15 meq/ Multivitamins 10 ml/Chromium/ Copper/Manganese/ Seleni/Zn 0.5 ml/ Insulin Human Regular 40 unit/ Total Parenteral Nutrition/Amino Acids/Dextrose/ Fat Emulsion Intravenous 1,400 ml @ 58.333 mls/ hr TPN CONT IV Last administered on 07/31/19at 21:54; Start 07/31/19 at 22:00; Stop 08/01/19 at 21:59; Status DC Sodium Chloride 1,000 ml @ 1,000 mls/hr Q1H PRN IV hypotension; Start 08/01/19 at 09:35; Stop 08/01/19 at 15:34; Status DC Albumin Human 200 ml @ 200 mls/hr 1X PRN PRN IV Hypotension; Start 08/01/19 at 09:45; Stop 08/01/19 at 15:44; Status DC Diphenhydramine HCl (Benadryl) 25 mg 1X PRN PRN IV ITCHING; Start 08/01/19 at 09:45; Stop 08/02/19 at 09:44; Status DC Diphenhydramine HCl (Benadryl) 25 mg 1X PRN PRN IV ITCHING; Start 08/01/19 at 09:45; Stop 08/02/19 at 09:44; Status DC Sodium Chloride 1,000 ml @ 400 mls/hr Q2H30M PRN IV PATENCY; Start 08/01/19 at 09:35; Stop 08/01/19 at 21:34; Status DC Info (PHARMACY MONITORING -- do not chart) 1 each PRN DAILY PRN MC SEE COMMENTS; Start 08/01/19 at 09:45; Status Cancel Sodium Chloride 100 meq/Potassium Phosphate 19 mmol/ Magnesium Sulfate 12 meq/Calcium Gluconate 15 meq/ Multivitamins 10 ml/Chromium/ Copper/Manganese/ Seleni/Zn 0.5 ml/ Insulin Human Regular 40 unit/ Potassium Chloride 20 meq/ Total Parenteral Nutrition/Amino Acids/Dextrose/ Fat Emulsion Intravenous 1,400 ml @ 58.333 mls/ hr TPN CONT IV Last administered on 08/01/19at 22:02; Start 08/01/19 at 22:00; Stop 08/02/19 at 21:59; Status DC Furosemide (Lasix) 40 mg 1X ONCE IVP Last administered on 08/01/19at 14:39; Start 08/01/19 at 14:30; Stop 08/01/19 at 14:31; Status DC Metronidazole 100 ml @ 100 mls/hr Q8HRS IV Last administered on 08/03/19at 05:43; Start 08/02/19 at 10:00 Sodium Chloride 1,000 ml @ 1,000 mls/hr Q1H PRN IV hypotension; Start 08/02/19 at 08:00; Stop 08/02/19 at 13:59; Status DC Albumin Human 200 ml @ 200 mls/hr 1X PRN PRN IV Hypotension; Start 08/02/19 at 08:00; Stop 08/02/19 at 13:59; Status DC Sodium Chloride 1,000 ml @ 400 mls/hr Q2H30M PRN IV PATENCY; Start 08/02/19 at 08:00; Stop 08/02/19 at 19:59; Status DC Info (PHARMACY MONITORING -- do not chart) 1 each PRN DAILY PRN MC SEE COMMENTS; Start 08/02/19 at 11:30; Status UNV Info (PHARMACY MONITORING -- do not chart) 1 each PRN DAILY PRN MC SEE COMMENTS; Start 08/02/19 at 11:30 Sodium Chloride 100 meq/Potassium Phosphate 19 mmol/ Magnesium Sulfate 12 meq/Calcium Gluconate 15 meq/ Multivitamins 10 ml/Chromium/ Copper/Manganese/ Seleni/Zn 0.5 ml/ Insulin Human Regular 40 unit/ Potassium Chloride 20 meq/ Total Parenteral Nutrition/Amino Acids/Dextrose/ Fat Emulsion Intravenous 1,400 ml @ 58.333 mls/ hr TPN CONT IV Last administered on 08/02/19at 21:52; Start 08/02/19 at 22:00; Stop 08/03/19 at 21:59 Sodium Chloride (Normal Saline Flush) 10 ml QSHIFT PRN IV AFTER MEDS AND BLOOD DRAWS; Start 08/02/19 at 15:00 Sodium Chloride (Normal Saline Flush) 10 ml PRN Q5MIN PRN IV AFTER MEDS AND BLOOD DRAWS; Start 08/02/19 at 15:00 Sodium Chloride (Normal Saline Flush) 20 ml PRN Q5MIN PRN IV AFTER MEDS AND BLOOD DRAWS; Start 08/02/19 at 15:00 Active Scripts Active Reported Bisoprolol Fumarate 5 Mg Tablet 10 Mg PO DAILY Vitals/I & O Vital Sign - Last 24 Hours 08/02/19 08/02/19 08/02/19 08/02/19 09:00 10:52 11:50 13:30 Temp 100.4 100.4 Pulse 115 134 Resp 30 36 B/P (MAP) 156/84 (108) 153/75 (101) Pulse Ox 99 99 100 O2 Delivery Ventilator Ventilator Ventilator Mechanical Ventilator 08/02/19 08/02/19 08/02/19 08/02/19 13:35 13:50 14:30 15:00 Temp 98.2 98.2 Pulse 126 124 122 92 Resp 31 32 30 18 B/P (MAP) 153/80 (104) 165/102 (123) 135/84 (101) 107/55 (72) Pulse Ox 100 100 100 99 O2 Delivery Ventilator Ventilator Ventilator Ventilator 08/02/19 08/02/19 08/02/19 08/02/19 15:16 16:00 16:07 16:20 Temp 98.6 98.6 Pulse 96 Resp 19 19 B/P (MAP) 101/61 (74) Pulse Ox 100 99 99 O2 Delivery Ventilator Ventilator Mechanical Ventilator Ventilator 08/02/19 08/02/19 08/02/19 08/02/19 16:50 17:00 18:00 19:00 Temp 98.9 98.9 Pulse 82 85 85 Resp 19 22 20 B/P (MAP) 104/59 (74) 112/70 (84) 118/65 (82) Pulse Ox 100 100 100 100 O2 Delivery Ventilator Ventilator Ventilator Ventilator 08/02/19 08/02/19 08/02/19 08/02/19 20:00 20:00 20:19 21:00 Pulse 85 99 Resp 23 B/P (MAP) 119/73 (88) 139/84 (102) Pulse Ox 100 100 100 O2 Delivery Mechanical Ventilator Ventilator Ventilator Ventilator 08/02/19 08/02/19 08/02/19 08/02/19 22:00 23:00 23:20 23:59 Pulse 103 98 Resp B/P (MAP) 142/78 (99) 165/88 (113) Pulse Ox 99 99 100 O2 Delivery Ventilator Ventilator Ventilator Mechanical Ventilator 08/02/19 08/03/19 08/03/19 08/03/19 23:59 01:00 01:11 01:42 Temp 99.5 99.5 Pulse 98 90 Resp B/P (MAP) 141/81 (101) 137/79 (98) Pulse Ox 99 100 99 99 O2 Delivery Ventilator Ventilator O2 Flow Rate 6.0 6.0 08/03/19 08/03/19 08/03/19 08/03/19 02:00 02:10 03:00 03:59 Temp 99.0 99.0 Pulse 85 82 82 Resp 21 B/P (MAP) 116/65 (82) 112/67 (82) 114/60 (78) Pulse Ox 100 100 100 100 O2 Delivery Ventilator Ventilator Ventilator Ventilator 08/03/19 08/03/19 08/03/19 08/03/19 04:00 04:05 05:00 06:00 Pulse 80 82 Resp 20 B/P (MAP) 114/60 (78) 116/66 (83) Pulse Ox 100 100 100 O2 Delivery Mechanical Ventilator Ventilator Ventilator Ventilator 08/03/19 08/03/19 08/03/19 07:34 08:00 08:13 Resp 16 Pulse Ox 99 99 O2 Delivery Ventilator Mechanical Ventilator Ventilator Intake and Output 08/02/19 08/02/19 08/03/19 15:00 23:00 07:00 Intake Total 350 ml 1395.28 ml 1670 ml Output Total 95 ml 120 ml 120 ml Balance 255 ml 1275.28 ml 1550 ml Hemodynamically unstable?: No Is patient in severe pain?: No Is NPO status required?: Yes DAVIN LANDEROS MD Aug 03, 2019 08:35
[2019-08-03] MEDS: MICAFUNGIN 100 MG in IV DEXTROSE 5% 100ML 100 ML IV SCH (08:54)
--- NOTE | 2019-08-03 09:32 | PDOC ---
SURGICAL PROGRESS NOTE Subjective Pt awakens to voice, has been interactive Vital Signs Vital Signs Date Time Temp Pulse Resp B/P (MAP) Pulse Ox O2 Delivery O2 Flow Rate FiO2 08/03/19 09:00 88 19 154/81 (105) 99 Ventilator 08/03/19 08:00 99.6 99.6 08/03/19 01:42 6.0 I&O Intake and Output 08/03/19 07:00 Intake Total 3415.28 ml Output Total 335 ml Balance 3080.28 ml Intake Oral 0 ml IV Total 3415.28 ml Output Urine Total 285 ml Gastric Drainage Total 50 ml General: Alert, Cooperative, No acute distress Abdomen: Soft, No tenderness Labs Laboratory Tests Test 08/01/19 14:11 08/01/19 15:00 08/01/19 18:26 08/02/19 01:07 Glucose (Fingerstick) 151 mg/dL (70-99) 213 mg/dL (70-99) 174 mg/dL (70-99) O2 Saturation 94 % (92-99) Arterial Blood pH 7.46 (7.35-7.45) Arterial Blood pCO2 at Patient Temp 38 mmHg (35-46) Arterial Blood pO2 at Patient Temp 74 mmHg (75-108) Arterial Blood HCO3 26 mmol/L (21-28) Arterial Blood Base Excess 2 mmol/L (-3-3) FiO2 35 Test 08/02/19 06:39 08/02/19 09:00 08/02/19 14:37 08/02/19 17:27 Glucose (Fingerstick) 157 mg/dL (70-99) 153 mg/dL (70-99) 205 mg/dL (70-99) White Blood Count 9.8 x10^3/uL (4.0-11.0) Red Blood Count 2.87 x10^6/uL (3.50-5.40) Hemoglobin 9.2 g/dL (12.0-15.5) Hematocrit 27.9 % (36.0-47.0) Mean Corpuscular Volume 97 fL (79-100) Mean Corpuscular Hemoglobin 32 pg (25-35) Mean Corpuscular Hemoglobin Concent 33 g/dL (31-37) Red Cell Distribution Width 19.2 % (11.5-14.5) Platelet Count 380 x10^3/uL (140-400) Sodium Level 137 mmol/L (136-145) Potassium Level 3.7 mmol/L (3.5-5.1) Chloride Level 98 mmol/L (98-107) Carbon Dioxide Level 29 mmol/L (21-32) Anion Gap 10 (6-14) Blood Urea Nitrogen 64 mg/dL (7-20) Creatinine 1.7 mg/dL (0.6-1.0) Estimated GFR (Cockcroft-Gault) 31.9 Glucose Level 166 mg/dL (70-99) Calcium Level 9.0 mg/dL (8.5-10.1) Test 08/02/19 23:34 08/03/19 05:41 08/03/19 05:45 Glucose (Fingerstick) 167 mg/dL (70-99) 130 mg/dL (70-99) White Blood Count 5.8 x10^3/uL (4.0-11.0) Red Blood Count 2.61 x10^6/uL (3.50-5.40) Hemoglobin 8.2 g/dL (12.0-15.5) Hematocrit 25.2 % (36.0-47.0) Mean Corpuscular Volume 97 fL (79-100) Mean Corpuscular Hemoglobin 32 pg (25-35) Mean Corpuscular Hemoglobin Concent 33 g/dL (31-37) Red Cell Distribution Width 18.6 % (11.5-14.5) Platelet Count 433 x10^3/uL (140-400) Neutrophils (%) (Auto) 70 % (31-73) Lymphocytes (%) (Auto) 16 % (24-48) Monocytes (%) (Auto) 13 % (0-9) Eosinophils (%) (Auto) 1 % (0-3) Basophils (%) (Auto) 0 % (0-3) Neutrophils # (Auto) 4.0 x10^3/uL (1.8-7.7) Lymphocytes # (Auto) 0.9 x10^3/uL (1.0-4.8) Monocytes # (Auto) 0.8 x10^3/uL (0.0-1.1) Eosinophils # (Auto) 0.0 x10^3/uL (0.0-0.7) Basophils # (Auto) 0.0 x10^3/uL (0.0-0.2) Sodium Level 138 mmol/L (136-145) Potassium Level 3.9 mmol/L (3.5-5.1) Chloride Level 101 mmol/L (98-107) Carbon Dioxide Level 29 mmol/L (21-32) Anion Gap 8 (6-14) Blood Urea Nitrogen 59 mg/dL (7-20) Creatinine 1.5 mg/dL (0.6-1.0) Estimated GFR (Cockcroft-Gault) 36.9 BUN/Creatinine Ratio 39 (6-20) Glucose Level 139 mg/dL (70-99) Calcium Level 8.9 mg/dL (8.5-10.1) Phosphorus Level 3.9 mg/dL (2.6-4.7) Magnesium Level 2.0 mg/dL (1.8-2.4) Total Bilirubin 0.6 mg/dL (0.2-1.0) Aspartate Amino Transf (AST/SGOT) 31 U/L (15-37) Alanine Aminotransferase (ALT/SGPT) 16 U/L (14-59) Alkaline Phosphatase 72 U/L (46-116) Total Protein 6.1 g/dL (6.4-8.2) Albumin 3.1 g/dL (3.4-5.0) Albumin/Globulin Ratio 1.0 (1.0-1.7) Hepatitis B Surface Antigen Nonreactive (Nonreactive) Laboratory Tests Test 08/02/19 14:37 08/02/19 17:27 08/02/19 23:34 08/03/19 05:41 Glucose (Fingerstick) 153 mg/dL (70-99) 205 mg/dL (70-99) 167 mg/dL (70-99) 130 mg/dL (70-99) Test 08/03/19 05:45 White Blood Count 5.8 x10^3/uL (4.0-11.0) Red Blood Count 2.61 x10^6/uL (3.50-5.40) Hemoglobin 8.2 g/dL (12.0-15.5) Hematocrit 25.2 % (36.0-47.0) Mean Corpuscular Volume 97 fL (79-100) Mean Corpuscular Hemoglobin 32 pg (25-35) Mean Corpuscular Hemoglobin Concent 33 g/dL (31-37) Red Cell Distribution Width 18.6 % (11.5-14.5) Platelet Count 433 x10^3/uL (140-400) Neutrophils (%) (Auto) 70 % (31-73) Lymphocytes (%) (Auto) 16 % (24-48) Monocytes (%) (Auto) 13 % (0-9) Eosinophils (%) (Auto) 1 % (0-3) Basophils (%) (Auto) 0 % (0-3) Neutrophils # (Auto) 4.0 x10^3/uL (1.8-7.7) Lymphocytes # (Auto) 0.9 x10^3/uL (1.0-4.8) Monocytes # (Auto) 0.8 x10^3/uL (0.0-1.1) Eosinophils # (Auto) 0.0 x10^3/uL (0.0-0.7) Basophils # (Auto) 0.0 x10^3/uL (0.0-0.2) Sodium Level 138 mmol/L (136-145) Potassium Level 3.9 mmol/L (3.5-5.1) Chloride Level 101 mmol/L (98-107) Carbon Dioxide Level 29 mmol/L (21-32) Anion Gap 8 (6-14) Blood Urea Nitrogen 59 mg/dL (7-20) Creatinine 1.5 mg/dL (0.6-1.0) Estimated GFR (Cockcroft-Gault) 36.9 BUN/Creatinine Ratio 39 (6-20) Glucose Level 139 mg/dL (70-99) Calcium Level 8.9 mg/dL (8.5-10.1) Phosphorus Level 3.9 mg/dL (2.6-4.7) Magnesium Level 2.0 mg/dL (1.8-2.4) Total Bilirubin 0.6 mg/dL (0.2-1.0) Aspartate Amino Transf (AST/SGOT) 31 U/L (15-37) Alanine Aminotransferase (ALT/SGPT) 16 U/L (14-59) Alkaline Phosphatase 72 U/L (46-116) Total Protein 6.1 g/dL (6.4-8.2) Albumin 3.1 g/dL (3.4-5.0) Albumin/Globulin Ratio 1.0 (1.0-1.7) Hepatitis B Surface Antigen Nonreactive (Nonreactive) Problem List Problems Medical Problems: (1) Acute pancreatitis Status: Acute (2) Cholelithiasis Status: Acute Assessment/Plan severe pancreatitis reviewed CT, essentially remains severe, but stable no surgical plans (except eventual cholecystectomy) cautiously hopeful for fci progress will ask speech to evaluate and ultimately consider some PO d/w hospitalist, d/w pt's daughter via phone. DAVON SIMMS MD Aug 03, 2019 09:32
--- NOTE | 2019-08-03 09:42 | PDOC ---
PROGRESS NOTES Assessment Problems Medical Problems: (1) Acute pancreatitis Status: Acute (2) Cholelithiasis Status: Acute Respiratory failure. Seizure. Metabolic encephalopathy. Fevers. Metabolic acidosis. Diffuse pulmonary infiltrate. Pleural effusion. Pancreatitis, necrotizing. Gallstone. Leukocytosis. Lymphopenia. Electrolytes imbalances. Hyperglycemia. DM. HTN. HLD. Anemia. Abnormal CXR. Obesity. Plan Keppra if she has further seizures. Treat medical diseases. Subjective None Objective Vital Signs Date Time Temp Pulse Resp B/P (MAP) Pulse Ox O2 Delivery O2 Flow Rate FiO2 08/03/19 09:00 88 19 154/81 (105) 99 Ventilator 08/03/19 08:00 99.6 99.6 08/03/19 01:42 6.0 Intake and Output 08/03/19 07:00 Intake Total 3415.28 ml Output Total 335 ml Balance 3080.28 ml Intake Oral 0 ml IV Total 3415.28 ml Output Urine Total 285 ml Gastric Drainage Total 50 ml PHYSICAL EXAM Alert. Tracheostomy in place. Mouths replies. Tracks with her eyes, moves extremities to commands PERRL. EOMI. CN: no focal findings. Muscle tone: normal. Muscle strength: Moves all extremities, no better than 2/5 strength DTR: 1+ Plantar reflex: Silent Gait: not examined in bed. Sensory exam: no abnormal findings. No cerebellar signs elicited. Review of Relevant I have reviewed the following items kolby (where applicable) has been applied. Labs Laboratory Tests Test 08/01/19 14:11 08/01/19 15:00 08/01/19 18:26 08/02/19 01:07 Glucose (Fingerstick) 151 mg/dL (70-99) 213 mg/dL (70-99) 174 mg/dL (70-99) O2 Saturation 94 % (92-99) Arterial Blood pH 7.46 (7.35-7.45) Arterial Blood pCO2 at Patient Temp 38 mmHg (35-46) Arterial Blood pO2 at Patient Temp 74 mmHg (75-108) Arterial Blood HCO3 26 mmol/L (21-28) Arterial Blood Base Excess 2 mmol/L (-3-3) FiO2 35 Test 08/02/19 06:39 08/02/19 09:00 08/02/19 14:37 08/02/19 17:27 Glucose (Fingerstick) 157 mg/dL (70-99) 153 mg/dL (70-99) 205 mg/dL (70-99) White Blood Count 9.8 x10^3/uL (4.0-11.0) Red Blood Count 2.87 x10^6/uL (3.50-5.40) Hemoglobin 9.2 g/dL (12.0-15.5) Hematocrit 27.9 % (36.0-47.0) Mean Corpuscular Volume 97 fL (79-100) Mean Corpuscular Hemoglobin 32 pg (25-35) Mean Corpuscular Hemoglobin Concent 33 g/dL (31-37) Red Cell Distribution Width 19.2 % (11.5-14.5) Platelet Count 380 x10^3/uL (140-400) Sodium Level 137 mmol/L (136-145) Potassium Level 3.7 mmol/L (3.5-5.1) Chloride Level 98 mmol/L (98-107) Carbon Dioxide Level 29 mmol/L (21-32) Anion Gap 10 (6-14) Blood Urea Nitrogen 64 mg/dL (7-20) Creatinine 1.7 mg/dL (0.6-1.0) Estimated GFR (Cockcroft-Gault) 31.9 Glucose Level 166 mg/dL (70-99) Calcium Level 9.0 mg/dL (8.5-10.1) Test 08/02/19 23:34 08/03/19 05:41 08/03/19 05:45 Glucose (Fingerstick) 167 mg/dL (70-99) 130 mg/dL (70-99) White Blood Count 5.8 x10^3/uL (4.0-11.0) Red Blood Count 2.61 x10^6/uL (3.50-5.40) Hemoglobin 8.2 g/dL (12.0-15.5) Hematocrit 25.2 % (36.0-47.0) Mean Corpuscular Volume 97 fL (79-100) Mean Corpuscular Hemoglobin 32 pg (25-35) Mean Corpuscular Hemoglobin Concent 33 g/dL (31-37) Red Cell Distribution Width 18.6 % (11.5-14.5) Platelet Count 433 x10^3/uL (140-400) Neutrophils (%) (Auto) 70 % (31-73) Lymphocytes (%) (Auto) 16 % (24-48) Monocytes (%) (Auto) 13 % (0-9) Eosinophils (%) (Auto) 1 % (0-3) Basophils (%) (Auto) 0 % (0-3) Neutrophils # (Auto) 4.0 x10^3/uL (1.8-7.7) Lymphocytes # (Auto) 0.9 x10^3/uL (1.0-4.8) Monocytes # (Auto) 0.8 x10^3/uL (0.0-1.1) Eosinophils # (Auto) 0.0 x10^3/uL (0.0-0.7) Basophils # (Auto) 0.0 x10^3/uL (0.0-0.2) Sodium Level 138 mmol/L (136-145) Potassium Level 3.9 mmol/L (3.5-5.1) Chloride Level 101 mmol/L (98-107) Carbon Dioxide Level 29 mmol/L (21-32) Anion Gap 8 (6-14) Blood Urea Nitrogen 59 mg/dL (7-20) Creatinine 1.5 mg/dL (0.6-1.0) Estimated GFR (Cockcroft-Gault) 36.9 BUN/Creatinine Ratio 39 (6-20) Glucose Level 139 mg/dL (70-99) Calcium Level 8.9 mg/dL (8.5-10.1) Phosphorus Level 3.9 mg/dL (2.6-4.7) Magnesium Level 2.0 mg/dL (1.8-2.4) Total Bilirubin 0.6 mg/dL (0.2-1.0) Aspartate Amino Transf (AST/SGOT) 31 U/L (15-37) Alanine Aminotransferase (ALT/SGPT) 16 U/L (14-59) Alkaline Phosphatase 72 U/L (46-116) Total Protein 6.1 g/dL (6.4-8.2) Albumin 3.1 g/dL (3.4-5.0) Albumin/Globulin Ratio 1.0 (1.0-1.7) Hepatitis B Surface Antigen Nonreactive (Nonreactive) Laboratory Tests Test 08/02/19 14:37 08/02/19 17:27 08/02/19 23:34 08/03/19 05:41 Glucose (Fingerstick) 153 mg/dL (70-99) 205 mg/dL (70-99) 167 mg/dL (70-99) 130 mg/dL (70-99) Test 08/03/19 05:45 White Blood Count 5.8 x10^3/uL (4.0-11.0) Red Blood Count 2.61 x10^6/uL (3.50-5.40) Hemoglobin 8.2 g/dL (12.0-15.5) Hematocrit 25.2 % (36.0-47.0) Mean Corpuscular Volume 97 fL (79-100) Mean Corpuscular Hemoglobin 32 pg (25-35) Mean Corpuscular Hemoglobin Concent 33 g/dL (31-37) Red Cell Distribution Width 18.6 % (11.5-14.5) Platelet Count 433 x10^3/uL (140-400) Neutrophils (%) (Auto) 70 % (31-73) Lymphocytes (%) (Auto) 16 % (24-48) Monocytes (%) (Auto) 13 % (0-9) Eosinophils (%) (Auto) 1 % (0-3) Basophils (%) (Auto) 0 % (0-3) Neutrophils # (Auto) 4.0 x10^3/uL (1.8-7.7) Lymphocytes # (Auto) 0.9 x10^3/uL (1.0-4.8) Monocytes # (Auto) 0.8 x10^3/uL (0.0-1.1) Eosinophils # (Auto) 0.0 x10^3/uL (0.0-0.7) Basophils # (Auto) 0.0 x10^3/uL (0.0-0.2) Sodium Level 138 mmol/L (136-145) Potassium Level 3.9 mmol/L (3.5-5.1) Chloride Level 101 mmol/L (98-107) Carbon Dioxide Level 29 mmol/L (21-32) Anion Gap 8 (6-14) Blood Urea Nitrogen 59 mg/dL (7-20) Creatinine 1.5 mg/dL (0.6-1.0) Estimated GFR (Cockcroft-Gault) 36.9 BUN/Creatinine Ratio 39 (6-20) Glucose Level 139 mg/dL (70-99) Calcium Level 8.9 mg/dL (8.5-10.1) Phosphorus Level 3.9 mg/dL (2.6-4.7) Magnesium Level 2.0 mg/dL (1.8-2.4) Total Bilirubin 0.6 mg/dL (0.2-1.0) Aspartate Amino Transf (AST/SGOT) 31 U/L (15-37) Alanine Aminotransferase (ALT/SGPT) 16 U/L (14-59) Alkaline Phosphatase 72 U/L (46-116) Total Protein 6.1 g/dL (6.4-8.2) Albumin 3.1 g/dL (3.4-5.0) Albumin/Globulin Ratio 1.0 (1.0-1.7) Hepatitis B Surface Antigen Nonreactive (Nonreactive) Microbiology 07/31/19 Urine Culture - Final, Complete 07/31/19 Urine Culture Result 1 (ALEXANDRA) - Final, Complete 07/29/19 Blood Culture - Preliminary, Resulted NO GROWTH AFTER 4 DAYS Medications Current Medications Sodium Chloride 1,000 ml @ 1,000 mls/hr Q1H IV Last administered on 07/04/19at 03:00; Start 07/04/19 at 03:00; Stop 07/04/19 at 03:59; Status DC Ondansetron HCl (Zofran) 4 mg 1X ONCE IVP Last administered on 07/04/19at 03:27; Start 07/04/19 at 03:00; Stop 07/04/19 at 03:01; Status DC Morphine Sulfate (Morphine Sulfate) 4 mg 1X ONCE IV ; Start 07/04/19 at 03:00; Stop 07/04/19 at 03:01; Status Cancel Ketorolac Tromethamine (Toradol 30mg Vial) 30 mg 1X ONCE IV Last administered on 07/04/19at 02:54; Start 07/04/19 at 03:00; Stop 07/04/19 at 03:01; Status DC Fentanyl Citrate (Fentanyl 2ml Vial) 25 mcg 1X ONCE IVP Last administered on 07/04/19at 03:23; Start 07/04/19 at 03:30; Stop 07/04/19 at 03:31; Status DC Fentanyl Citrate (Fentanyl 2ml Vial) 100 mcg STK-MED ONCE .ROUTE ; Start 07/04/19 at 03:18; Stop 07/04/19 at 03:18; Status DC Iohexol (Omnipaque 350 Mg/ml) 90 ml 1X ONCE IV Last administered on 07/04/19at 03:25; Start 07/04/19 at 03:30; Stop 07/04/19 at 03:31; Status DC Info (CONTRAST GIVEN -- Rx MONITORING) 1 each PRN DAILY PRN MC SEE COMMENTS; Start 07/04/19 at 03:30; Stop 07/06/19 at 03:29; Status DC Hydromorphone HCl (Dilaudid) 0.5 mg 1X ONCE IV Last administered on 07/04/19at 03:55; Start 07/04/19 at 04:30; Stop 07/04/19 at 04:32; Status DC Ondansetron HCl (Zofran) 4 mg PRN Q8HRS PRN IV NAUSEA/VOMITING 1ST CHOICE; Start 07/04/19 at 05:00; Stop 07/04/19 at 09:27; Status DC Morphine Sulfate (Morphine Sulfate) 2 mg PRN Q2HR PRN IV SEVERE PAIN 7-10 Last administered on 07/05/19at 12:26; Start 07/04/19 at 05:00; Stop 07/05/19 at 14:15; Status DC Sodium Chloride 1,000 ml @ 125 mls/hr Q8H IV Last administered on 07/04/19at 20:56; Start 07/04/19 at 05:00; Stop 07/05/19 at 04:59; Status DC Hydromorphone HCl (Dilaudid) 0.5 mg PRN Q3HRS PRN IV SEVERE PAIN 7-10 Last administered on 07/05/19at 10:06; Start 07/04/19 at 05:00; Stop 07/05/19 at 12:01; Status DC Piperacillin Sod/ Tazobactam Sod 4.5 gm/Sodium Chloride 100 ml @ 200 mls/hr 1X ONCE IV Last administered on 07/04/19at 05:44; Start 07/04/19 at 06:00; Stop 07/04/19 at 06:29; Status DC Ondansetron HCl (Zofran) 4 mg PRN Q4HRS PRN IV NAUSEA/VOMITING 1ST CHOICE Last administered on 07/31/19at 09:56; Start 07/04/19 at 09:30 Insulin Human Lispro (HumaLOG) 0-9 UNITS Q6HRS SQ Last administered on 08/02/19at 23:38; Start 07/04/19 at 09:30 Dextrose (Dextrose 50%-Water Syringe) 12.5 gm PRN Q15MIN PRN IV SEE COMMENTS; Start 07/04/19 at 09:30 Pantoprazole Sodium (PROTONIX VIAL for IV PUSH) 40 mg DAILYAC IVP Last administered on 08/03/19at 07:38; Start 07/04/19 at 11:30 Prochlorperazine Edisylate (Compazine) 10 mg PRN Q6HRS PRN IV NAUSEA/VOMITING, 2nd CHOICE Last administered on 07/05/19at 00:42; Start 07/04/19 at 17:45 Atenolol (Tenormin) 100 mg DAILY PO ; Start 07/05/19 at 09:00; Stop 07/04/19 at 20:08; Status DC Metoprolol Tartrate (Lopressor Vial) 2.5 mg Q6HRS IVP Last administered on 07/05/19at 05:51; Start 07/04/19 at 20:15; Stop 07/05/19 at 10:02; Status DC Metoprolol Tartrate (Lopressor Vial) 5 mg Q6HRS IVP Last administered on 07/14/19at 00:12; Start 07/05/19 at 10:15; Stop 07/16/19 at 08:48; Status DC Hydromorphone HCl (Dilaudid) 1 mg PRN Q3HRS PRN IV SEVERE PAIN 7-10 Last administered on 07/11/19at 05:13; Start 07/05/19 at 12:00; Stop 07/19/19 at 00:25; Status DC Lidocaine HCl (Buffered Lidocaine 1%) 3 ml STK-MED ONCE .ROUTE ; Start 07/05/19 at 12:55; Stop 07/05/19 at 12:56; Status DC Albumin Human 500 ml @ 125 mls/hr 1X ONCE IV Last administered on 07/05/19at 14:33; Start 07/05/19 at 14:30; Stop 07/05/19 at 18:32; Status DC Norepinephrine Bitartrate 8 mg/ Dextrose 258 ml @ 17.299 mls/ hr CONT PRN IV PER PROTOCOL Last administered on 08/02/19at 12:48; Start 07/05/19 at 15:30 Sodium Chloride 1,000 ml @ 125 mls/hr Q8H IV Last administered on 07/05/19at 21:04; Start 07/05/19 at 16:00; Stop 07/06/19 at 02:42; Status DC Albumin Human 500 ml @ 125 mls/hr PRN BID PRN IV After every 2L NSS & BP < 90mm Last administered on 07/20/19at 14:21; Start 07/05/19 at 16:00 Iohexol (Omnipaque 300 Mg/ml) 60 ml 1X ONCE IV Last administered on 07/05/19at 17:20; Start 07/05/19 at 17:00; Stop 07/05/19 at 17:01; Status DC Info (CONTRAST GIVEN -- Rx MONITORING) 1 each PRN DAILY PRN MC SEE COMMENTS; Start 07/05/19 at 17:00; Stop 07/07/19 at 16:59; Status DC Meropenem 1 gm/ Sodium Chloride 100 ml @ 200 mls/hr Q8HRS IV Last administered on 07/06/19at 05:45; Start 07/05/19 at 20:00; Stop 07/06/19 at 08:48; Status DC Furosemide (Lasix) 40 mg 1X ONCE IVP Last administered on 07/05/19at 22:12; Start 07/05/19 at 22:30; Stop 07/05/19 at 22:31; Status DC Calcium Chloride 1000 mg/Sodium Chloride 110 ml @ 220 mls/hr 1X ONCE IV Last administered on 07/05/19at 22:11; Start 07/05/19 at 22:30; Stop 07/05/19 at 22:59; Status DC Albuterol Sulfate (Ventolin Neb Soln) 2.5 mg 1X ONCE NEB Last administered on 07/06/19at 00:56; Start 07/05/19 at 22:30; Stop 07/05/19 at 22:31; Status DC Insulin Human Regular (HumuLIN R VIAL) 5 unit 1X ONCE IV Last administered on 07/05/19at 22:14; Start 07/05/19 at 22:30; Stop 07/05/19 at 22:31; Status DC Magnesium Sulfate 50 ml @ 25 mls/hr 1X ONCE IV Last administered on 07/06/19at 02:57; Start 07/06/19 at 03:00; Stop 07/06/19 at 04:59; Status DC Calcium Gluconate 1000 mg/Sodium Chloride 110 ml @ 220 mls/hr 1X ONCE IV Last administered on 07/06/19at 02:46; Start 07/06/19 at 03:00; Stop 07/06/19 at 03:29; Status DC Sodium Chloride 1,000 ml @ 200 mls/hr Q5H IV Last administered on 07/06/19at 02:46; Start 07/06/19 at 03:00; Stop 07/06/19 at 10:21; Status DC Calcium Gluconate 1000 mg/Sodium Chloride 110 ml @ 220 mls/hr 1X ONCE IV Last administered on 07/06/19at 03:21; Start 07/06/19 at 03:30; Stop 07/06/19 at 03:59; Status DC Sodium Bicarbonate 50 meq/Sodium Chloride 1,050 ml @ 75 mls/hr Q14H IV Last administered on 07/10/19at 21:10; Start 07/06/19 at 07:30; Stop 07/11/19 at 10:28; Status DC Calcium Gluconate 2000 mg/Sodium Chloride 120 ml @ 220 mls/hr 1X ONCE IV Last administered on 07/06/19at 09:05; Start 07/06/19 at 07:30; Stop 07/06/19 at 08:02; Status DC Lidocaine HCl (Xylocaine-Mpf 1% 2ml Vial) 2 ml STK-MED ONCE .ROUTE ; Start 07/06/19 at 08:47; Stop 07/06/19 at 08:47; Status DC Meropenem 500 mg/ Sodium Chloride 50 ml @ 100 mls/hr Q12HR IV Last administered on 07/11/19at 21:01; Start 07/06/19 at 18:00; Stop 07/12/19 at 07:58; Status DC Lidocaine HCl (Buffered Lidocaine 1%) 3 ml STK-MED ONCE .ROUTE ; Start 07/06/19 at 09:46; Stop 07/06/19 at 09:46; Status DC Lidocaine HCl (Buffered Lidocaine 1%) 6 ml 1X ONCE INJ Last administered on 07/06/19at 10:26; Start 07/06/19 at 10:15; Stop 07/06/19 at 10:16; Status DC Info (Tpn Per Pharmacy) 1 each PRN DAILY PRN MC SEE COMMENTS Last administered on 08/02/19at 12:34; Start 07/06/19 at 12:00 Sodium Chloride 1,000 ml @ 1,000 mls/hr Q1H PRN IV hypotension; Start 07/06/19 at 12:07; Stop 07/06/19 at 18:06; Status DC Diphenhydramine HCl (Benadryl) 25 mg 1X PRN PRN IV ITCHING; Start 07/06/19 at 12:15; Stop 07/07/19 at 12:14; Status DC Diphenhydramine HCl (Benadryl) 25 mg 1X PRN PRN IV ITCHING; Start 07/06/19 at 12:15; Stop 07/07/19 at 12:14; Status DC Sodium Chloride 1,000 ml @ 400 mls/hr Q2H30M PRN IV PATENCY; Start 07/06/19 at 12:07; Stop 07/07/19 at 00:06; Status DC Info (PHARMACY MONITORING -- do not chart) 1 each PRN DAILY PRN MC SEE COMMENTS; Start 07/06/19 at 12:15; Stop 07/08/19 at 08:13; Status DC Sodium Chloride 90 meq/Calcium Gluconate 10 meq/ Multivitamins 10 ml/Chromium/ Copper/Manganese/ Seleni/Zn 1 ml/ Total Parenteral Nutrition/Amino Acids/Dextrose/ Fat Emulsion Intravenous 55.005 ml @ 2.292 mls/hr TPN CONT IV ; Start 07/06/19 at 22:00; Stop 07/06/19 at 12:33; Status DC Info (Tpn Per Pharmacy) 1 each PRN DAILY PRN MC SEE COMMENTS; Start 07/06/19 at 12:30; Status UNV Sodium Chloride 90 meq/Calcium Gluconate 10 meq/ Multivitamins 10 ml/Chromium/ Copper/Manganese/ Seleni/Zn 0.5 ml/ Total Parenteral Nutrition/Amino Acids/Dextrose/ Fat Emulsion Intravenous 1,512 ml @ 63 mls/hr TPN CONT IV Last administered on 07/06/19at 22:06; Start 07/06/19 at 22:00; Stop 07/07/19 at 21:59; Status DC Calcium Carbonate/ Glycine (Tums) 500 mg PRN AFTMEALHC PRN PO INDIGESTION; Start 07/06/19 at 17:45 Calcium Gluconate (Calcium Gluconate) 2,000 mg 1X ONCE IVP Last administered on 07/07/19at 02:19; Start 07/07/19 at 02:15; Stop 07/07/19 at 02:16; Status DC Calcium Chloride 3000 mg/Sodium Chloride 1,030 ml @ 50 mls/hr [id number] IV Last administered on 07/09/19at 02:17; Start 07/07/19 at 08:00; Stop 07/09/19 at 15:23; Status DC Lorazepam (Ativan Inj) 1 mg PRN Q4HRS PRN IVP ANXIETY / AGITATION, 2nd choic Last administered on 08/02/19at 11:06; Start 07/07/19 at 09:00 Sodium Chloride 1,000 ml @ 1,000 mls/hr Q1H PRN IV hypotension; Start 07/07/19 at 08:56; Stop 07/07/19 at 14:55; Status DC Albumin Human 200 ml @ 200 mls/hr 1X PRN PRN IV Hypotension; Start 07/07/19 at 09:00; Stop 07/07/19 at 14:59; Status DC Diphenhydramine HCl (Benadryl) 25 mg 1X PRN PRN IV ITCHING; Start 07/07/19 at 09:00; Stop 07/08/19 at 08:59; Status DC Diphenhydramine HCl (Benadryl) 25 mg 1X PRN PRN IV ITCHING; Start 07/07/19 at 09:00; Stop 07/08/19 at 08:59; Status DC Sodium Chloride 1,000 ml @ 400 mls/hr Q2H30M PRN IV PATENCY; Start 07/07/19 at 08:56; Stop 07/07/19 at 20:55; Status DC Info (PHARMACY MONITORING -- do not chart) 1 each PRN DAILY PRN MC SEE COMMENTS; Start 07/07/19 at 09:00; Status UNV Info (PHARMACY MONITORING -- do not chart) 1 each PRN DAILY PRN MC SEE COMMENTS; Start 07/07/19 at 09:00; Stop 07/08/19 at 08:13; Status DC Digoxin (Lanoxin) 500 mcg 1X ONCE IV Last administered on 07/07/19at 10:04; Start 07/07/19 at 10:00; Stop 07/07/19 at 10:01; Status DC Digoxin (Lanoxin) 125 mcg 1X ONCE IV Last administered on 07/07/19at 17:10; Start 07/07/19 at 18:00; Stop 07/07/19 at 18:01; Status DC Magnesium Sulfate 100 ml @ 25 mls/hr 1X ONCE IV Last administered on 07/07/19at 12:48; Start 07/07/19 at 13:00; Stop 07/07/19 at 16:59; Status DC Sodium Chloride 90 meq/Magnesium Sulfate 10 meq/ Calcium Gluconate 20 meq/ Multivitamins 10 ml/Chromium/ Copper/Manganese/ Seleni/Zn 0.5 ml/ Total Parenteral Nutrition/Amino Acids/Dextrose/ Fat Emulsion Intravenous 1,512 ml @ 63 mls/hr TPN CONT IV Last administered on 07/07/19at 22:25; Start 07/07/19 at 22:00; Stop 07/08/19 at 21:59; Status DC Sodium Chloride 1,000 ml @ 1,000 mls/hr Q1H PRN IV hypotension; Start 07/08/19 at 08:05; Stop 07/08/19 at 14:04; Status DC Albumin Human 200 ml @ 200 mls/hr 1X ONCE IV Last administered on 07/08/19at 08:57; Start 07/08/19 at 08:15; Stop 07/08/19 at 09:14; Status DC Diphenhydramine HCl (Benadryl) 25 mg 1X PRN PRN IV ITCHING; Start 07/08/19 at 08:15; Stop 07/09/19 at 08:14; Status DC Diphenhydramine HCl (Benadryl) 25 mg 1X PRN PRN IV ITCHING; Start 07/08/19 at 08:15; Stop 07/09/19 at 08:14; Status DC Sodium Chloride 1,000 ml @ 400 mls/hr Q2H30M PRN IV PATENCY; Start 07/08/19 at 08:05; Stop 07/08/19 at 20:04; Status DC Info (PHARMACY MONITORING -- do not chart) 1 each PRN DAILY PRN MC SEE COMMENTS; Start 07/08/19 at 08:15; Stop 07/12/19 at 07:57; Status DC Sodium Chloride 90 meq/Potassium Chloride 15 meq/ Potassium Phosphate 10 mmol/ Magnesium Sulfate 10 meq/Calcium Gluconate 20 meq/ Multivitamins 10 ml/Chromium/ Copper/Manganese/ Seleni/Zn 0.5 ml/ Total Parenteral Nutrition/Amino Acids/Dextrose/ Fat Emulsion Intravenous 1,512 ml @ 63 mls/hr TPN CONT IV Last administered on 07/08/19at 21:01; Start 07/08/19 at 22:00; Stop 07/09/19 at 21:59; Status DC Potassium Chloride/Water 100 ml @ 100 mls/hr 1X ONCE IV Last administered on 07/08/19at 14:09; Start 07/08/19 at 14:00; Stop 07/08/19 at 14:59; Status DC Benzocaine (Hurricaine One) 1 spray 1X ONCE MM Last administered on 07/08/19at 16:38; Start 07/08/19 at 14:30; Stop 07/08/19 at 14:31; Status DC Lidocaine HCl (Glydo (Lidocaine) Jelly) 1 ramu 1X ONCE MM Last administered on 07/08/19at 16:38; Start 07/08/19 at 14:30; Stop 07/08/19 at 14:31; Status DC Linezolid/Dextrose 300 ml @ 300 mls/hr Q12HR IV Last administered on 07/14/19at 21:04; Start 07/08/19 at 20:00; Stop 07/15/19 at 07:50; Status DC Acetaminophen (Tylenol) 650 mg PRN Q6HRS PRN PO MILD PAIN / TEMP; Start 07/09/19 at 03:30; Stop 07/09/19 at 03:36; Status DC Acetaminophen (Tylenol) 650 mg PRN Q6HRS PRN PEG MILD PAIN / TEMP Last administered on 07/14/19at 07:35; Start 07/09/19 at 03:36 Sodium Chloride 1,000 ml @ 1,000 mls/hr Q1H PRN IV hypotension; Start 07/09/19 at 07:50; Stop 07/09/19 at 13:49; Status DC Albumin Human 200 ml @ 200 mls/hr 1X PRN PRN IV Hypotension; Start 07/09/19 at 08:00; Stop 07/09/19 at 13:59; Status DC Sodium Chloride (Normal Saline Flush) 10 ml 1X PRN PRN IV AP catheter pack; Start 07/09/19 at 08:00; Stop 07/10/19 at 07:59; Status DC Sodium Chloride (Normal Saline Flush) 10 ml 1X PRN PRN IV [employer]ISING [employer] catheter pack; Start 07/09/19 at 08:00; Stop 07/10/19 at 07:59; Status DC Sodium Chloride 1,000 ml @ 400 mls/hr Q2H30M PRN IV PATENCY; Start 07/09/19 at 07:50; Stop 07/09/19 at 19:49; Status DC Info (PHARMACY MONITORING -- do not chart) 1 each PRN DAILY PRN MC SEE COMMENTS; Start 07/09/19 at 08:00; Status UNV Info (PHARMACY MONITORING -- do not chart) 1 each PRN DAILY PRN MC SEE COMMENTS; Start 07/09/19 at 08:00; Stop 07/11/19 at 08:25; Status DC Sodium Chloride 90 meq/Potassium Chloride 15 meq/ Potassium Phosphate 10 mmol/ Magnesium Sulfate 10 meq/Calcium Gluconate 20 meq/ Multivitamins 10 ml/Chromium/ Copper/Manganese/ Seleni/Zn 0.5 ml/ Total Parenteral Nutrition/Amino Acids/Dextrose/ Fat Emulsion Intravenous 1,512 ml @ 63 mls/hr TPN CONT IV Last administered on 07/09/19at 20:57; Start 07/09/19 at 22:00; Stop 07/10/19 at 21:59; Status DC Sodium Chloride 90 meq/Potassium Chloride 15 meq/ Potassium Phosphate 15 mmol/ Magnesium Sulfate 10 meq/Calcium Gluconate 20 meq/ Multivitamins 10 ml/Chromium/ Copper/Manganese/ Seleni/Zn 0.5 ml/ Total Parenteral Nutrition/Amino Acids/D extrose/ Fat Emulsion Intravenous 1,512 ml @ 63 mls/hr TPN CONT IV ; Start 07/10/19 at 22:00; Stop 07/10/19 at 14:16; Status DC Sodium Chloride 90 meq/Potassium Chloride 15 meq/ Potassium Phosphate 15 mmol/ Magnesium Sulfate 10 meq/Calcium Gluconate 20 meq/ Multivitamins 10 ml/Chromium/ Copper/Manganese/ Seleni/Zn 0.5 ml/ Total Parenteral Nutrition/Amino Acids/Dextrose/ Fat Emulsion Intravenous 1,200 ml @ 50 mls/hr TPN CONT IV ; Start 07/10/19 at 22:00; Stop 07/10/19 at 14:17; Status DC Sodium Chloride 90 meq/Potassium Chloride 15 meq/ Potassium Phosphate 10 mmol/ Magnesium Sulfate 10 meq/Calcium Gluconate 20 meq/ Multivitamins 10 ml/Chromium/ Copper/Manganese/ Seleni/Zn 0.5 ml/ Total Parenteral Nutrition/Amino Acids/Dextrose/ Fat Emulsion Intravenous 1,200 ml @ 50 mls/hr TPN CONT IV Last administered on 07/10/19at 23:29; Start 07/10/19 at 22:00; Stop 07/11/19 at 21:59; Status DC Sodium Chloride 1,000 ml @ 1,000 mls/hr Q1H PRN IV hypotension; Start 07/11/19 at 07:28; Stop 07/11/19 at 13:27; Status DC Albumin Human 200 ml @ 200 mls/hr 1X ONCE IV Last administered on 07/11/19at 08:51; Start 07/11/19 at 07:30; Stop 07/11/19 at 08:29; Status DC Diphenhydramine HCl (Benadryl) 25 mg 1X PRN PRN IV ITCHING; Start 07/11/19 at 07:30; Stop 07/12/19 at 07:29; Status DC Diphenhydramine HCl (Benadryl) 25 mg 1X PRN PRN IV ITCHING; Start 07/11/19 at 07:30; Stop 07/12/19 at 07:29; Status DC Sodium Chloride 1,000 ml @ 400 mls/hr Q2H30M PRN IV PATENCY; Start 07/11/19 at 07:28; Stop 07/11/19 at 19:27; Status DC Info (PHARMACY MONITORING -- do not chart) 1 each PRN DAILY PRN MC SEE COMMENTS; Start 07/11/19 at 07:30; Stop 07/22/19 at 13:01; Status DC Metronidazole 100 ml @ 100 mls/hr Q6HRS IV Last administered on 07/27/19at 06:26; Start 07/11/19 at 08:30; Stop 07/27/19 at 09:58; Status DC Micafungin Sodium 100 mg/Dextrose 100 ml @ 100 mls/hr Q24H IV Last administered on 08/03/19at 08:54; Start 07/11/19 at 09:00 Propofol 0 ml @ As Directed STK-MED ONCE IV ; Start 07/11/19 at 07:53; Stop 07/11/19 at 07:53; Status DC Etomidate (Amidate) 20 mg STK-MED ONCE IV ; Start 07/11/19 at 07:53; Stop 07/11/19 at 07:54; Status DC Midazolam HCl (Versed) 5 mg STK-MED ONCE .ROUTE ; Start 07/11/19 at 07:57; Stop 07/11/19 at 07:57; Status DC Fentanyl Citrate 30 ml @ 0 mls/hr CONT PRN IV SEE PROTOCOL Last administered on 08/03/19at 08:13; Start 07/11/19 at 08:15 Artificial Tears (Artificial Tears) 1 drop PRN Q1HR PRN OU DRY EYE, 1st choice; Start 07/11/19 at 08:15 Midazolam HCl 50 mg/Sodium Chloride 50 ml @ 0 mls/hr CONT PRN IV SEE PROTOCOL Last administered on 07/14/19at 22:39; Start 07/11/19 at 08:15; Stop 07/16/19 at 15:59; Status DC Etomidate (Amidate) 8 mg 1X ONCE IV Last administered on 07/11/19at 08:33; Start 07/11/19 at 08:30; Stop 07/11/19 at 08:31; Status DC Succinylcholine Chloride (Anectine) 120 mg 1X ONCE IV Last administered on 07/11/19at 08:34; Start 07/11/19 at 08:30; Stop 07/11/19 at 08:31; Status DC Midazolam HCl (Versed) 5 mg 1X ONCE IV ; Start 07/11/19 at 08:30; Stop 07/11/19 at 08:31; Status DC Potassium Chloride 15 meq/ Bicarbonate Dialysis Soln w/ out KCl 5,007.5 ml @ 1,000 mls/ hr Q5H1M IV Last administered on 07/12/19at 11:11; Start 07/11/19 at 12:00; Stop 07/12/19 at 11:15; Status DC Potassium Chloride 15 meq/ Bicarbonate Dialysis Soln w/ out KCl 5,007.5 ml @ 1,000 mls/ hr Q5H1M IV Last administered on 07/12/19at 11:12; Start 07/11/19 at 12:00; Stop 07/12/19 at 11:17; Status DC Potassium Chloride 15 meq/ Bicarbonate Dialysis Soln w/ out KCl 5,007.5 ml @ 1,000 mls/ hr Q5H1M IV Last administered on 07/12/19at 11:11; Start 07/11/19 at 12:00; Stop 07/12/19 at 11:19; Status DC Sodium Chloride 90 meq/Potassium Chloride 15 meq/ Potassium Phosphate 10 mmol/ Magnesium Sulfate 10 meq/Calcium Gluconate 20 meq/ Multivitamins 10 ml/Chromium/ Copper/Manganese/ Seleni/Zn 0.5 ml/ Total Parenteral Nutrition/Amino Acids/Dextrose/ Fat Emulsion Intravenous 1,400 ml @ 58.333 mls/ hr TPN CONT IV Last administered on 07/11/19at 21:42; Start 07/11/19 at 22:00; Stop 07/12/19 at 21:59; Status DC Heparin Sodium (Porcine) (Heparin Sodium) 5,000 unit Q8HRS SQ Last administered on 07/16/19at 05:55; Start 07/11/19 at 15:00; Stop 07/16/19 at 13:28; Status DC Meropenem 500 mg/ Sodium Chloride 50 ml @ 100 mls/hr Q6HRS IV Last administered on 07/13/19at 06:00; Start 07/12/19 at 09:00; Stop 07/13/19 at 07:29; Status DC Potassium Phosphate 20 mmol/ Sodium Chloride 106.6667 ml @ 51.667 m... 1X ONCE IV Last administered on 07/12/19at 11:22; Start 07/12/19 at 10:15; Stop 07/12/19 at 12:18; Status DC Acetaminophen (Tylenol Supp) 650 mg PRN Q6HRS PRN CA MILD PAIN / TEMP Last administered on 08/02/19at 08:01; Start 07/12/19 at 10:30 Potassium Chloride/Water 100 ml @ 100 mls/hr Q1H IV Last administered on 07/12/19at 12:12; Start 07/12/19 at 11:00; Stop 07/12/19 at 12:59; Status DC Potassium Chloride 20 meq/ Bicarbonate Dialysis Soln w/ out KCl 5,010 ml @ 1,000 mls/hr Q5H1M IV Last administered on 07/13/19at 08:48; Start 07/12/19 at 12:00; Stop 07/13/19 at 13:03; Status DC Potassium Chloride 20 meq/ Bicarbonate Dialysis Soln w/ out KCl 5,010 ml @ 1,000 mls/hr Q5H1M IV Last administered on 07/17/19at 14:52; Start 07/12/19 at 11:30; Stop 07/17/19 at 19:59; Status DC Potassium Chloride 20 meq/ Bicarbonate Dialysis Soln w/ out KCl 5,010 ml @ 1,000 mls/hr Q5H1M IV Last administered on 07/17/19at 14:53; Start 07/12/19 at 11:30; Stop 07/17/19 at 19:59; Status DC Sodium Chloride 90 meq/Potassium Chloride 15 meq/ Potassium Phosphate 15 mmol/ Magnesium Sulfate 10 meq/Calcium Gluconate 15 meq/ Multivitamins 10 ml/Chromium/ Copper/Manganese/ Seleni/Zn 0.5 ml/ Total Parenteral Nutrition/Amino Acids/Dextrose/ Fat Emulsion Intravenous 1,400 ml @ 58.333 mls/ hr TPN CONT IV Last administered on 07/12/19at 22:17; Start 07/12/19 at 22:00; Stop 07/13/19 at 21:59; Status DC Cefepime HCl (Maxipime) 2 gm Q12HR IVP Last administered on 07/26/19at 20:56; Start 07/13/19 at 09:00; Stop 07/27/19 at 09:58; Status DC Daptomycin 500 mg/ Sodium Chloride 50 ml @ 100 mls/hr Q48H IV Last administered on 07/29/19at 09:57; Start 07/13/19 at 08:30; Stop 07/29/19 at 10: 07; Status DC Lidocaine HCl (Buffered Lidocaine 1%) 3 ml 1X ONCE INJ Last administered on 07/13/19at 10:27; Start 07/13/19 at 10:30; Stop 07/13/19 at 10:31; Status DC Potassium Phosphate 20 mmol/ Sodium Chloride 106.6667 ml @ 51.667 m... 1X ONCE IV Last administered on 07/13/19at 12:51; Start 07/13/19 at 13:00; Stop 07/13/19 at 15:03; Status DC Sodium Chloride 90 meq/Potassium Chloride 15 meq/ Potassium Phosphate 18 mmol/ Magnesium Sulfate 8 meq/Calcium Gluconate 15 meq/ Multivitamins 10 ml/Chromium/ Copper/Manganese/ Seleni/Zn 0.5 ml/ Total Parenteral Nutrition/Amino Acids/Dextrose/ Fat Emulsion Intravenous 1,400 ml @ 58.333 mls/ hr TPN CONT IV Last administered on 07/13/19at 22:16; Start 07/13/19 at 22:00; Stop 07/14/19 at 21:59; Status DC Potassium Chloride 20 meq/ Bicarbonate Dialysis Soln w/ out KCl 5,010 ml @ 1,000 mls/hr Q5H1M IV Last administered on 07/17/19at 14:54; Start 07/13/19 at 16:00; Stop 07/17/19 at 19:59; Status DC Multi-Ingred Cream/Lotion/Oil/ Oint (Artificial Tears Eye Ointment) 1 ramu PRN Q1HR PRN OU DRY EYE, 2nd choice Last administered on 08/01/19at 08:19; Start 07/13/19 at 17:30 Sodium Chloride 90 meq/Potassium Chloride 15 meq/ Potassium Phosphate 18 mmol/ Magnesium Sulfate 8 meq/Calcium Gluconate 15 meq/ Multivitamins 10 ml/Chromium/ Copper/Manganese/ Seleni/Zn 0.5 ml/ Total Parenteral Nutrition/Amino Acids/Dextrose/ Fat Emulsion Intravenous 1,400 ml @ 58.333 mls/ hr TPN CONT IV Last administered on 07/14/19at 22:00; Start 07/14/19 at 22:00; Stop 07/15/19 at 21:59; Status DC Albumin Human 500 ml @ 125 mls/hr 1X ONCE IV ; Start 07/14/19 at 14:15; Stop 07/14/19 at 18:14; Status DC Sodium Chloride 90 meq/Potassium Chloride 15 meq/ Potassium Phosphate 18 mmol/ Magnesium Sulfate 8 meq/Calcium Gluconate 15 meq/ Multivitamins 10 ml/Chromium/ Copper/Manganese/ Seleni/Zn 0.5 ml/ Insulin Human Regular 10 unit/ Total Parenteral Nutrition/Amino Acids/Dextrose/ Fat Emulsion Intravenous 1,400 ml @ 58.333 mls/ hr TPN CONT IV Last administered on 07/15/19at 21:43; Start 07/15/19 at 22:00; Stop 07/16/19 at 21:59; Status DC Lidocaine HCl (Buffered Lidocaine 1%) 3 ml STK-MED ONCE .ROUTE ; Start 07/13/19 at 10:00; Stop 07/15/19 at 13:57; Status DC Midazolam HCl 100 mg/Sodium Chloride 100 ml @ 7 mls/hr CONT PRN IV SEE PROTOCOL Last administered on 07/27/19at 15:35; Start 07/16/19 at 16:00 Sodium Chloride 90 meq/Potassium Chloride 15 meq/ Potassium Phosphate 18 mmol/ Magnesium Sulfate 8 meq/Calcium Gluconate 15 meq/ Multivitamins 10 ml/Chromium/ Copper/Manganese/ Seleni/Zn 0.5 ml/ Insulin Human Regular 15 unit/ Total Parenteral Nutrition/Amino Acids/Dextrose/ Fat Emulsion Intravenous 1,400 ml @ 58.333 mls/ hr TPN CONT IV Last administered on 07/16/19at 20:34; Start 07/16/19 at 22:00; Stop 07/17/19 at 21:59; Status DC Info (Icu Electrolyte Protocol) 1 ea CONT PRN PRN MC PER PROTOCOL; Start 07/17/19 at 13:15 Sodium Chloride 90 meq/Potassium Chloride 15 meq/ Potassium Phosphate 18 mmol/ Magnesium Sulfate 8 meq/Calcium Gluconate 15 meq/ Multivitamins 10 ml/Chromium/ Copper/Manganese/ Seleni/Zn 0.5 ml/ Insulin Human Regular 15 unit/ Total Parenteral Nutrition/Amino Acids/Dextrose/ Fat Emulsion Intravenous 1,400 ml @ 58.333 mls/ hr TPN CONT IV Last administered on 07/17/19at 22:05; Start 07/17/19 at 22:00; Stop 07/18/19 at 21:59; Status DC Potassium Chloride 15 meq/ Bicarbonate Dialysis Soln w/ out KCl 5,007.5 ml @ 1,000 mls/ hr Q5H1M IV Last administered on 07/20/19at 18:14; Start 07/17/19 at 20:00; Stop 07/21/19 at 13:08; Status DC Potassium Chloride 15 meq/ Bicarbonate Dialysis Soln w/ out KCl 5,007.5 ml @ 1,000 mls/ hr Q5H1M IV Last administered on 07/20/19at 18:14; Start 07/17/19 at 20:00; Stop 07/21/19 at 13:08; Status DC Potassium Chloride 15 meq/ Bicarbonate Dialysis Soln w/ out KCl 5,007.5 ml @ 1,000 mls/ hr Q5H1M IV Last administered on 07/20/19at 18:14; Start 07/17/19 at 20:00; Stop 07/21/19 at 13:08; Status DC Iohexol (Omnipaque 240 Mg/ml) 30 ml 1X ONCE PO Last administered on 07/18/19at 11:30; Start 07/18/19 at 11:30; Stop 07/18/19 at 11:33; Status DC Info (CONTRAST GIVEN -- Rx MONITORING) 1 each PRN DAILY PRN MC SEE COMMENTS; Start 07/18/19 at 11:45; Stop 07/20/19 at 11:44; Status DC Sodium Chloride 90 meq/Potassium Chloride 15 meq/ Potassium Phosphate 18 mmol/ Magnesium Sulfate 8 meq/Calcium Gluconate 15 meq/ Multivitamins 10 ml/Chromium/ Copper/Manganese/ Seleni/Zn 0.5 ml/ Insulin Human Regular 15 unit/ Total Parenteral Nutrition/Amino Acids/Dextrose/ Fat Emulsion Intravenous 1,400 ml @ 58.333 mls/ hr TPN CONT IV Last administered on 07/18/19at 21:47; Start 07/18/19 at 22:00; Stop 07/19/19 at 21:59; Status DC Sodium Chloride 90 meq/Potassium Chloride 15 meq/ Potassium Phosphate 18 mmol/ Magnesium Sulfate 8 meq/Calcium Gluconate 15 meq/ Multivitamins 10 ml/Chromium/ Copper/Manganese/ Seleni/Zn 0.5 ml/ Insulin Human Regular 20 unit/ Total Parenteral Nutrition/Amino Acids/Dextrose/ Fat Emulsion Intravenous 1,400 ml @ 58.333 mls/ hr TPN CONT IV Last administered on 07/19/19at 21:36; Start 07/19/19 at 22:00; Stop 07/20/19 at 21:59; Status DC Alteplase, Recombinant (Cathflo For Central Catheter Clearance) 1 mg 1X ONCE INT CAT Last administered on 07/19/19at 20:03; Start 07/19/19 at 19:30; Stop 07/19/19 at 19:46; Status DC Alteplase, Recombinant (Cathflo For Central Catheter Clearance) 1 mg 1X ONCE INT CAT Last administered on 07/19/19at 22:05; Start 07/19/19 at 22:00; Stop 07/19/19 at 22:01; Status DC Sodium Chloride 90 meq/Potassium Chloride 15 meq/ Potassium Phosphate 18 mmol/ Magnesium Sulfate 8 meq/Calcium Gluconate 15 meq/ Multivitamins 10 ml/Chromium/ Copper/Manganese/ Seleni/Zn 0.5 ml/ Insulin Human Regular 20 unit/ Total Parenteral Nutrition/Amino Acids/Dextrose/ Fat Emulsion Intravenous 1,400 ml @ 58.333 mls/ hr TPN CONT IV Last administered on 07/20/19at 21:30; Start 07/20/19 at 22:00; Stop 07/21/19 at 21:59; Status DC Dexmedetomidine HCl 400 mcg/ Sodium Chloride 100 ml @ 0 mls/hr CONT PRN IV ANXIETY / AGITATION Last administered on 08/03/19at 08:05; Start 07/21/19 at 08:15 Sodium Chloride 500 ml @ 500 mls/hr 1X PRN PRN IV ELEVATED BP, SEE COMMENTS; Start 07/21/19 at 08:15 Atropine Sulfate (ATROPINE 0.5mg SYRINGE) 0.5 mg PRN Q5MIN PRN IV SEE COMMENTS; Start 07/21/19 at 08:15 Furosemide (Lasix) 20 mg 1X ONCE IVP Last administered on 07/21/19at 08:19; Start 07/21/19 at 08:15; Stop 07/21/19 at 08:16; Status DC Lidocaine HCl (Buffered Lidocaine 1%) 3 ml STK-MED ONCE .ROUTE ; Start 07/21/19 at 08:39; Stop 07/21/19 at 08:39; Status DC Lidocaine HCl (Buffered Lidocaine 1%) 6 ml 1X ONCE INJ Last administered on 07/21/19at 09:05; Start 07/21/19 at 09:00; Stop 07/21/19 at 09:06; Status DC Sodium Chloride 90 meq/Potassium Chloride 15 meq/ Potassium Phosphate 18 mmol/ Magnesium Sulfate 8 meq/Calcium Gluconate 15 meq/ Multivitamins 10 ml/Chromium/ Copper/Manganese/ Seleni/Zn 0.5 ml/ Insulin Human Regular 20 unit/ Total Parenteral Nutrition/Amino Acids/Dextrose/ Fat Emulsion Intravenous 1,400 ml @ 58.333 mls/ hr TPN CONT IV Last administered on 07/21/19at 22:45; Start 07/21/19 at 22:00; Stop 07/22/19 at 21:59; Status DC Sodium Chloride 1,000 ml @ 1,000 mls/hr Q1H PRN IV hypotension; Start 07/22/19 at 07:30; Stop 07/22/19 at 13:29; Status DC Albumin Human 200 ml @ 200 mls/hr 1X PRN PRN IV Hypotension Last administered on 07/22/19at 09:36; Start 07/22/19 at 07:30; Stop 07/22/19 at 13:29; Status DC Sodium Chloride (Normal Saline Flush) 10 ml 1X PRN PRN IV AP catheter pack; Start 07/22/19 at 07:30; Stop 07/22/19 at 21:29; Status DC Sodium Chloride (Normal Saline Flush) 10 ml 1X PRN PRN IV ADVERTISING OPERATIONS MANAGER catheter pack; Start 07/22/19 at 07:30; Stop 07/23/19 at 07:29; Status DC Sodium Chloride 1,000 ml @ 400 mls/hr Q2H30M PRN IV PATENCY; Start 07/22/19 at 07:30; Stop 07/22/19 at 19:29; Status DC Info (PHARMACY MONITORING -- do not chart) 1 each PRN DAILY PRN MC SEE COMMENTS; Start 07/22/19 at 07:30; Stop 07/22/19 at 13:02; Status DC Info (PHARMACY MONITORING -- do not chart) 1 each PRN DAILY PRN MC SEE COMMENTS; Start 07/22/19 at 07:30; Stop 07/24/19 at 12:45; Status DC Sodium Chloride 90 meq/Potassium Chloride 15 meq/ Potassium Phosphate 10 mmol/ Magnesium Sulfate 8 meq/Calcium Gluconate 15 meq/ Multivitamins 10 ml/Chromium/ Copper/Manganese/ Seleni/Zn 0.5 ml/ Insulin Human Regular 25 unit/ Total Parenteral Nutrition/Amino Acids/Dextrose/ Fat Emulsion Intravenous 1,400 ml @ 58.333 mls/ hr TPN CONT IV Last administered on 07/22/19at 22:19; Start 07/22/19 at 22:00; Stop 07/23/19 at 21:59; Status DC Heparin Sodium (Porcine) (Heparin Sodium) 5,000 unit Q12HR SQ Last administered on 08/03/19at 07:42; Start 07/22/19 at 21:00 Ondansetron HCl (Zofran) 4 mg PRN Q6HRS PRN IV NAUSEA/VOMITING; Start 07/25/19 at 07:00; Stop 07/26/19 at 06:59; Status DC Fentanyl Citrate (Fentanyl 2ml Vial) 25 mcg PRN Q5MIN PRN IV MILD PAIN 1-3; Start 07/25/19 at 07:00; Stop 07/26/19 at 06:59; Status DC Fentanyl Citrate (Fentanyl 2ml Vial) 50 mcg PRN Q5MIN PRN IV MODERATE TO SEVERE PAIN; Start 07/25/19 at 07:00; Stop 07/26/19 at 06:59; Status DC Ringer's Solution 1,000 ml @ 30 mls/hr Q24H IV ; Start 07/25/19 at 07:00; Stop 07/25/19 at 18:59; Status DC Lidocaine HCl (Xylocaine-Mpf 1% 2ml Vial) 2 ml PRN 1X PRN ID PRIOR TO IV START; Start 07/25/19 at 07:00; Stop 07/26/19 at 06:59; Status DC Prochlorperazine Edisylate (Compazine) 5 mg PACU PRN PRN IV NAUSEA, MRX1; Start 07/25/19 at 07:00; Stop 07/26/19 at 06:59; Status DC Sodium Chloride 1,000 ml @ 1,000 mls/hr Q1H PRN IV hypotension; Start 07/23/19 at 09:10; Stop 07/23/19 at 15:09; Status DC Albumin Human 200 ml @ 200 mls/hr 1X PRN PRN IV Hypotension Last administered on 07/23/19at 10:10; Start 07/23/19 at 09:15; Stop 07/23/19 at 15:14; Status DC Sodium Chloride 1,000 ml @ 400 mls/hr Q2H30M PRN IV PATENCY; Start 07/23/19 at 09:10; Stop 07/23/19 at 21:09; Status DC Info (PHARMACY MONITORING -- do not chart) 1 each PRN DAILY PRN MC SEE COMMENTS; Start 07/23/19 at 09:15; Stop 07/24/19 at 12:45; Status DC Info (PHARMACY MONITORING -- do not chart) 1 each PRN DAILY PRN MC SEE COMMENTS; Start 07/23/19 at 09:15; Stop 07/24/19 at 12:45; Status DC Sodium Chloride 90 meq/Potassium Chloride 15 meq/ Potassium Phosphate 10 mmol/ Magnesium Sulfate 8 meq/Calcium Gluconate 15 meq/ Multivitamins 10 ml/Chromium/ Copper/Manganese/ Seleni/Zn 0.5 ml/ Insulin Human Regular 25 unit/ Total Parenteral Nutrition/Amino Acids/Dextrose/ Fat Emulsion Intravenous 1,400 ml @ 58.333 mls/ hr TPN CONT IV Last administered on 07/23/19at 22:10; Start 07/23/19 at 22:00; Stop 07/24/19 at 21:59; Status DC Magnesium Sulfate 50 ml @ 25 mls/hr PRN DAILY PRN IV for Mag < 1.7 on am labs; Start 07/24/19 at 09:15 Sodium Chloride 90 meq/Potassium Chloride 15 meq/ Potassium Phosphate 10 mmol/ Magnesium Sulfate 8 meq/Calcium Gluconate 15 meq/ Multivitamins 10 ml/Chromium/ Copper/Manganese/ Seleni/Zn 0.5 ml/ Insulin Human Regular 25 unit/ Total Parenteral Nutrition/Amino Acids/Dextrose/ Fat Emulsion Intravenous 1,400 ml @ 58.333 mls/ hr TPN CONT IV Last administered on 07/24/19at 21:20; Start 07/24/19 at 22:00; Stop 07/25/19 at 21:59; Status DC Sodium Chloride 1,000 ml @ 1,000 mls/hr Q1H PRN IV hypotension; Start 07/24/19 at 12:23; Stop 07/24/19 at 18:22; Status DC Albumin Human 200 ml @ 200 mls/hr 1X ONCE IV Last administered on 07/24/19at 13:34; Start 07/24/19 at 12:30; Stop 07/24/19 at 13:29; Status DC Diphenhydramine HCl (Benadryl) 25 mg 1X PRN PRN IV ITCHING; Start 07/24/19 at 12:30; Stop 07/25/19 at 12:29; Status DC Diphenhydramine HCl (Benadryl) 25 mg 1X PRN PRN IV ITCHING; Start 07/24/19 at 12:30; Stop 07/25/19 at 12:29; Status DC Info (PHARMACY MONITORING -- do not chart) 1 each PRN DAILY PRN MC SEE COMMENTS; Start 07/24/19 at 12:30; Status Cancel Bupivacaine HCl/ Epinephrine Bitart (Sensorcain-Epi 0.5%-1:126633 Mpf) 30 ml STK-MED ONCE .ROUTE Last administered on 07/25/19at 11:44; Start 07/25/19 at 11:00; Stop 07/25/19 at 11:01; Status DC Cellulose (Surgicel Fibrillar 1x2) 1 each STK-MED ONCE .ROUTE ; Start 07/25/19 at 11:00; Stop 07/25/19 at 11:01; Status DC Sodium Chloride 90 meq/Potassium Chloride 15 meq/ Potassium Phosphate 10 mmol/ Magnesium Sulfate 12 meq/Calcium Gluconate 15 meq/ Multivitamins 10 ml/Chromium/ Copper/Manganese/ Seleni/Zn 0.5 ml/ Insulin Human Regular 25 unit/ Total Parenteral Nutrition/Amino Acids/Dextrose/ Fat Emulsion Intravenous 1,400 ml @ 58.333 mls/ hr TPN CONT IV Last administered on 07/25/19at 22:24; Start 07/25/19 at 22:00; Stop 07/26/19 at 21:59; Status DC Propofol 20 ml @ As Directed STK-MED ONCE IV ; Start 07/25/19 at 11:07; Stop 07/25/19 at 11:07; Status DC Cellulose (Surgicel Hemostat 4x8) 1 each STK-MED ONCE .ROUTE Last administered on 07/25/19at 11:44; Start 07/25/19 at 11:55; Stop 07/25/19 at 11:56; Status DC Sevoflurane (Ultane) 60 ml STK-MED ONCE IH ; Start 07/25/19 at 12:46; Stop 07/25/19 at 12:46; Status DC Sodium Chloride 1,000 ml @ 1,000 mls/hr Q1H PRN IV hypotension; Start 07/25/19 at 13:51; Stop 07/25/19 at 19:50; Status DC Albumin Human 200 ml @ 200 mls/hr 1X PRN PRN IV Hypotension Last administered on 07/25/19at 14:51; Start 07/25/19 at 14:00; Stop 07/25/19 at 19:59; Status DC Diphenhydramine HCl (Benadryl) 25 mg 1X PRN PRN IV ITCHING; Start 07/25/19 at 14:00; Stop 07/26/19 at 13:59; Status DC Diphenhydramine HCl (Benadryl) 25 mg 1X PRN PRN IV ITCHING; Start 07/25/19 at 14:00; Stop 07/26/19 at 13:59; Status DC Sodium Chloride 1,000 ml @ 400 mls/hr Q2H30M PRN IV PATENCY; Start 07/25/19 at 13:51; Stop 07/26/19 at 01:50; Status DC Info (PHARMACY MONITORING -- do not chart) 1 each PRN DAILY PRN MC SEE COMMENTS; Start 07/25/19 at 14:00; Stop 07/28/19 at 08:16; Status DC Heparin Sodium (Porcine) (Hep Lock Adult) 500 unit STK-MED ONCE IVP ; Start 07/26/19 at 09:29; Stop 07/26/19 at 09:30; Status DC Sodium Chloride 1,000 ml @ 1,000 mls/hr Q1H PRN IV hypotension; Start 07/26/19 at 10:43; Stop 07/26/19 at 16:42; Status DC Sodium Chloride 1,000 ml @ 400 mls/hr Q2H30M PRN IV PATENCY; Start 07/26/19 at 10:43; Stop 07/26/19 at 22:42; Status DC Info (PHARMACY MONITORING -- do not chart) 1 each PRN DAILY PRN MC SEE COMMENTS; Start 07/26/19 at 10:45; Status UNV Info (PHARMACY MONITORING -- do not chart) 1 each PRN DAILY PRN MC SEE COMMENTS; Start 07/26/19 at 10:45; Status UNV Sodium Chloride 90 meq/Potassium Chloride 15 meq/ Magnesium Sulfate 12 meq/Calcium Gluconate 15 meq/ Multivitamins 10 ml/Chromium/ Copper/Manganese/ Seleni/Zn 0.5 ml/ Insulin Human Regular 25 unit/ Total Parenteral Nutrition/Amino Acids/Dextrose/ Fat Emulsion Intravenous 1,400 ml @ 58.333 mls/ hr TPN CONT IV Last administered on 07/26/19at 22:13; Start 07/26/19 at 22:00; Stop 07/27/19 at 21:59; Status DC Sodium Chloride 1,000 ml @ 1,000 mls/hr Q1H PRN IV hypotension; Start 07/27/19 at 07:50; Stop 07/27/19 at 13:49; Status DC Albumin Human 200 ml @ 200 mls/hr 1X ONCE IV ; Start 07/27/19 at 08:00; Stop 07/27/19 at 08:53; Status DC Diphenhydramine HCl (Benadryl) 25 mg 1X PRN PRN IV ITCHING; Start 07/27/19 at 08:00; Stop 07/28/19 at 07:59; Status DC Diphenhydramine HCl (Benadryl) 25 mg 1X PRN PRN IV ITCHING; Start 07/27/19 at 08:00; Stop 07/28/19 at 07:59; Status DC Info (PHARMACY MONITORING -- do not chart) 1 each PRN DAILY PRN MC SEE COMMENTS; Start 07/27/19 at 08:00; Stop 07/28/19 at 08:16; Status DC Albumin Human 50 ml @ 50 mls/hr 1X ONCE IV ; Start 07/27/19 at 08:53; Stop 07/27/19 at 08:56; Status DC Albumin Human 200 ml @ 50 mls/hr PRN 1X PRN IV HYPOTENSION Last administered on 08/02/19at 11:54; Start 07/27/19 at 09:00 Meropenem 500 mg/ Sodium Chloride 50 ml @ 100 mls/hr Q12H IV Last administered on 08/02/19at 21:54; Start 07/27/19 at 10:00 Sodium Chloride 90 meq/Magnesium Sulfate 12 meq/ Calcium Gluconate 15 meq/ Multivitamins 10 ml/Chromium/ Copper/Manganese/ Seleni/Zn 0.5 ml/ Insulin Human Regular 25 unit/ Total Parenteral Nutrition/Amino Acids/Dextrose/ Fat Emulsion Intravenous 1,400 ml @ 58.333 mls/ hr TPN CONT IV Last administered on 07/27/19at 21:41; Start 07/27/19 at 22:00; Stop 07/28/19 at 21:59; Status DC Sodium Chloride 1,000 ml @ 1,000 mls/hr Q1H PRN IV hypotension; Start 07/28/19 at 07:58; Stop 07/28/19 at 13:57; Status DC Albumin Human 200 ml @ 200 mls/hr 1X PRN PRN IV Hypotension Last administered on 07/28/19at 09:30; Start 07/28/19 at 08:00; Stop 07/28/19 at 13:59; Status DC Sodium Chloride 1,000 ml @ 400 mls/hr Q2H30M PRN IV PATENCY; Start 07/28/19 at 07:58; Stop 07/28/19 at 19:57; Status DC Info (PHARMACY MONITORING -- do not chart) 1 each PRN DAILY PRN MC SEE COMMENTS; Start 07/28/19 at 08:00; Status Cancel Info (PHARMACY MONITORING -- do not chart) 1 each PRN DAILY PRN MC SEE COM MENTS; Start 07/28/19 at 08:15; Status UNV Sodium Chloride 90 meq/Potassium Phosphate 5 mmol/ Magnesium Sulfate 12 meq/Calcium Gluconate 15 meq/ Multivitamins 10 ml/Chromium/ Copper/Manganese/ Seleni/Zn 0.5 ml/ Insulin Human Regular 30 unit/ Total Parenteral Nutrition/Amino Acids/Dextrose/ Fat Emulsion Intravenous 1,400 ml @ 58.333 mls/ hr TPN CONT IV Last administered on 07/28/19at 22:08; Start 07/28/19 at 22:00; Stop 07/29/19 at 21:59; Status DC Linezolid/Dextrose 300 ml @ 300 mls/hr Q12HR IV Last administered on 08/03/19at 07:38; Start 07/29/19 at 11:00 Sodium Chloride 90 meq/Potassium Phosphate 15 mmol/ Magnesium Sulfate 12 me q/Calcium Gluconate 15 meq/ Multivitamins 10 ml/Chromium/ Copper/Manganese/ Seleni/Zn 0.5 ml/ Insulin Human Regular 30 unit/ Total Parenteral Nutrition/Amino Acids/Dextrose/ Fat Emulsion Intravenous 1,400 ml @ 58.333 mls/ hr TPN CONT IV Last administered on 07/29/19at 21:49; Start 07/29/19 at 22:00; Stop 07/30/19 at 21:59; Status DC Sodium Chloride 90 meq/Potassium Phosphate 15 mmol/ Magnesium Sulfate 12 meq/Calcium Gluconate 15 meq/ Multivitamins 10 ml/Chromium/ Copper/Manganese/ Seleni/Zn 0.5 ml/ Insulin Human Regular 40 unit/ Total Parenteral Nutrition/Amino Acids/Dextrose/ Fat Emulsion Intravenous 1,400 ml @ 58.333 mls/ hr TPN CONT IV Last administered on 07/30/19at 21:21; Start 07/30/19 at 22:00; Stop 07/31/19 at 21:59; Status DC Sodium Chloride 1,000 ml @ 1,000 mls/hr Q1H PRN IV hypotension; Start 07/30/19 at 13:26; Stop 07/30/19 at 19:25; Status DC Albumin Human 200 ml @ 200 mls/hr 1X PRN PRN IV Hypotension Last administered on 07/30/19at 15:00; Start 07/30/19 at 13:30; Stop 07/30/19 at 19:29; Status DC Sodium Chloride (Normal Saline Flush) 10 ml 1X PRN PRN IV AP catheter pack; Start 07/30/19 at 13:30; Stop 07/31/19 at 13:29; Status DC Sodium Chloride (Normal Saline Flush) 10 ml 1X PRN PRN IV ADVERTISING OPERATIONS MANAGER catheter pack; Start 07/30/19 at 13:30; Stop 07/31/19 at 13:29; Status DC Sodium Chloride 1,000 ml @ 400 mls/hr Q2H30M PRN IV PATENCY; Start 07/30/19 at 13:26; Stop 07/31/19 at 01:25; Status DC Info (PHARMACY MONITORING -- do not chart) 1 each PRN DAILY PRN MC SEE COMMENTS; Start 07/30/19 at 13:30; Stop 07/30/19 at 13:33; Status DC Info (PHARMACY MONITORING -- do not chart) 1 each PRN DAILY PRN MC SEE COMMENTS; Start 07/30/19 at 13:30; Stop 07/30/19 at 13:34; Status DC Sodium Chloride 90 meq/Potassium Phosphate 19 mmol/ Magnesium Sulfate 12 meq /Calcium Gluconate 15 meq/ Multivitamins 10 ml/Chromium/ Copper/Manganese/ Seleni/Zn 0.5 ml/ Insulin Human Regular 40 unit/ Total Parenteral Nutrition/Amino Acids/Dextrose/ Fat Emulsion Intravenous 1,400 ml @ 58.333 mls/ hr TPN CONT IV Last administered on 07/31/19at 21:54; Start 07/31/19 at 22:00; Stop 08/01/19 at 21:59; Status DC Sodium Chloride 1,000 ml @ 1,000 mls/hr Q1H PRN IV hypotension; Start 08/01/19 at 09:35; Stop 08/01/19 at 15:34; Status DC Albumin Human 200 ml @ 200 mls/hr 1X PRN PRN IV Hypotension; Start 08/01/19 at 09:45; Stop 08/01/19 at 15:44; Status DC Diphenhydramine HCl (Benadryl) 25 mg 1X PRN PRN IV ITCHING; Start 08/01/19 at 09:45; Stop 08/02/19 at 09:44; Status DC Diphenhydramine HCl (Benadryl) 25 mg 1X PRN PRN IV ITCHING; Start 08/01/19 at 09:45; Stop 08/02/19 at 09:44; Status DC Sodium Chloride 1,000 ml @ 400 mls/hr Q2H30M PRN IV PATENCY; Start 08/01/19 at 09:35; Stop 08/01/19 at 21:34; Status DC Info (PHARMACY MONITORING -- do not chart) 1 each PRN DAILY PRN MC SEE COM MENTS; Start 08/01/19 at 09:45; Status Cancel Sodium Chloride 100 meq/Potassium Phosphate 19 mmol/ Magnesium Sulfate 12 meq/Calcium Gluconate 15 meq/ Multivitamins 10 ml/Chromium/ Copper/Manganese/ Seleni/Zn 0.5 ml/ Insulin Human Regular 40 unit/ Potassium Chloride 20 meq/ Total Parenteral Nutrition/Amino Acids/Dextrose/ Fat Emulsion Intravenous 1,400 ml @ 58.333 mls/ hr TPN CONT IV Last administered on 08/01/19at 22:02; Start 08/01/19 at 22:00; Stop 08/02/19 at 21:59; Status DC Furosemide (Lasix) 40 mg 1X ONCE IVP Last administered on 08/01/19at 14:39; Start 08/01/19 at 14:30; Stop 08/01/19 at 14:31; Status DC Metronidazole 100 ml @ 100 mls/hr Q8HRS IV Last administered on 08/03/19at 05:43; Start 08/02/19 at 10:00 Sodium Chloride 1,000 ml @ 1,000 mls/hr Q1H PRN IV hypotension; Start 08/02/19 at 08:00; Stop 08/02/19 at 13:59; Status DC Albumin Human 200 ml @ 200 mls/hr 1X PRN PRN IV Hypotension; Start 08/02/19 at 08:00; Stop 08/02/19 at 13:59; Status DC Sodium Chloride 1,000 ml @ 400 mls/hr Q2H30M PRN IV PATENCY; Start 08/02/19 at 08:00; Stop 08/02/19 at 19:59; Status DC Info (PHARMACY MONITORING -- do not chart) 1 each PRN DAILY PRN MC SEE COMMENTS; Start 08/02/19 at 11:30; Status UNV Info (PHARMACY MONITORING -- do not chart) 1 each PRN DAILY PRN MC SEE COMMENTS; Start 08/02/19 at 11:30 Sodium Chloride 100 meq/Potassium Phosphate 19 mmol/ Magnesium Sulfate 12 meq/Calcium Gluconate 15 meq/ Multivitamins 10 ml/Chromium/ Copper/Manganese/ Seleni/Zn 0.5 ml/ Insulin Human Regular 40 unit/ Potassium Chloride 20 meq/ Total Parenteral Nutrition/Amino Acids/Dextrose/ Fat Emulsion Intravenous 1,400 ml @ 58.333 mls/ hr TPN CONT IV Last administered on 08/02/19at 21:52; Start 08/02/19 at 22:00; Stop 08/03/19 at 21:59 Sodium Chloride (Normal Saline Flush) 10 ml QSHIFT PRN IV AFTER MEDS AND BLOOD DRAWS; Start 08/02/19 at 15:00 Sodium Chloride (Normal Saline Flush) 10 ml PRN Q5MIN PRN IV AFTER MEDS AND BLOOD DRAWS; Start 08/02/19 at 15:00 Sodium Chloride (Normal Saline Flush) 20 ml PRN Q5MIN PRN IV AFTER MEDS AND BLOOD DRAWS; Start 08/02/19 at 15:00 Active Scripts Active Reported Bisoprolol Fumarate 5 Mg Tablet 10 Mg PO DAILY Vitals/I & O Vital Sign - Last 24 Hours 08/02/19 08/02/19 08/02/19 08/02/19 10:52 11:50 13:30 13:35 Temp 98.2 98.2 Pulse 134 126 Resp 36 31 B/P (MAP) 153/75 (101) 153/80 (104) Pulse Ox 99 100 100 O2 Delivery Ventilator Ventilator Mechanical Ventilator Ventilator 08/02/19 08/02/19 08/02/19 08/02/19 13:50 14:30 15:00 15:16 Pulse 124 122 92 Resp 32 30 18 B/P (MAP) 165/102 (123) 135/84 (101) 107/55 (72) Pulse Ox 100 100 99 100 O2 Delivery Ventilator Ventilator Ventilator Ventilator 08/02/19 08/02/19 08/02/19 08/02/19 16:00 16:07 16:20 16:50 Temp 98.6 98.6 Pulse 96 Resp 19 19 19 B/P (MAP) 101/61 (74) Pulse Ox 99 99 100 O2 Delivery Ventilator Mechanical Ventilator Ventilator Ventilator 08/02/19 08/02/19 08/02/19 08/02/19 17:00 18:00 19:00 20:00 Temp 98.9 98.9 Pulse 82 85 85 Resp 20 B/P (MAP) 104/59 (74) 112/70 (84) 118/65 (82) Pulse Ox 100 100 100 O2 Delivery Ventilator Ventilator Ventilator Mechanical Ventilator 08/02/19 08/02/19 08/02/19 08/02/19 20:00 20:19 21:00 22:00 Pulse 85 99 103 Resp 22 23 22 B/P (MAP) 119/73 (88) 139/84 (102) 142/78 (99) Pulse Ox 100 100 100 99 O2 Delivery Ventilator Ventilator Ventilator Ventilator 08/02/19 08/02/19 08/02/19 08/02/19 23:00 23:20 23:59 23:59 Temp 99.5 99.5 Pulse 98 98 Resp 28 B/P (MAP) 165/88 (113) 141/81 (101) Pulse Ox 99 100 99 O2 Delivery Ventilator Ventilator Mechanical Ventilator Ventilator 08/03/19 08/03/19 08/03/19 08/03/19 01:00 01:11 01:42 02:00 Pulse 90 85 Resp 22 22 B/P (MAP) 137/79 (98) 116/65 (82) Pulse Ox 100 99 99 100 O2 Delivery Ventilator Ventilator O2 Flow Rate 6.0 6.0 08/03/19 08/03/19 08/03/19 08/03/19 02:10 03:00 03:59 04:00 Temp 99.0 99.0 Pulse 82 82 Resp 21 B/P (MAP) 112/67 (82) 114/60 (78) Pulse Ox 100 100 100 O2 Delivery Ventilator Ventilator Ventilator Mechanical Ventilator 08/03/19 08/03/19 08/03/19 08/03/19 04:05 05:00 06:00 07:00 Pulse 80 82 112 Resp 20 20 17 B/P (MAP) 114/60 (78) 116/66 (83) 165/91 (115) Pulse Ox 100 100 100 98 O2 Delivery Ventilator Ventilator Ventilator Ventilator 08/03/19 08/03/19 08/03/19 08/03/19 07:34 08:00 08:00 08:13 Temp 99.6 99.6 Pulse 93 Resp 23 16 B/P (MAP) 143/76 (98) Pulse Ox 99 100 99 O2 Delivery Ventilator Mechanical Ventilator Ventilator Ventilator 08/03/19 08/03/19 08:46 09:00 Pulse 88 Resp 23 19 B/P (MAP) 154/81 (105) Pulse Ox 99 99 O2 Delivery Ventilator Ventilator Intake and Output 08/02/19 08/02/19 08/03/19 15:00 23:00 07:00 Intake Total 350 ml 1395.28 ml 1670 ml Output Total 95 ml 120 ml 120 ml Balance 255 ml 1275.28 ml 1550 ml ABI AHN MD Aug 03, 2019 09:41
--- NOTE | 2019-08-03 09:45 | PDOC ---
Subjective: Subjective: Denies pain. Objective: Objective: D/w nurse - awake, messing w/ trach and NG sometimes. Vital Signs: Vital Signs Date Time Temp Pulse Resp B/P (MAP) Pulse Ox O2 Delivery O2 Flow Rate FiO2 08/03/19 09:00 88 19 154/81 (105) 99 Ventilator 08/03/19 08:00 99.6 99.6 08/03/19 01:42 6.0 Labs: Laboratory Tests Test 08/02/19 14:37 08/02/19 17:27 08/02/19 23:34 08/03/19 05:41 Glucose (Fingerstick) 153 mg/dL 205 mg/dL 167 mg/dL 130 mg/dL Test 08/03/19 05:45 White Blood Count 5.8 x10^3/uL Red Blood Count 2.61 x10^6/uL Hemoglobin 8.2 g/dL Hematocrit 25.2 % Mean Corpuscular Volume 97 fL Mean Corpuscular Hemoglobin 32 pg Mean Corpuscular Hemoglobin Concent 33 g/dL Red Cell Distribution Width 18.6 % Platelet Count 433 x10^3/uL Neutrophils (%) (Auto) 70 % Lymphocytes (%) (Auto) 16 % Monocytes (%) (Auto) 13 % Eosinophils (%) (Auto) 1 % Basophils (%) (Auto) 0 % Neutrophils # (Auto) 4.0 x10^3/uL Lymphocytes # (Auto) 0.9 x10^3/uL Monocytes # (Auto) 0.8 x10^3/uL Eosinophils # (Auto) 0.0 x10^3/uL Basophils # (Auto) 0.0 x10^3/uL Sodium Level 138 mmol/L Potassium Level 3.9 mmol/L Chloride Level 101 mmol/L Carbon Dioxide Level 29 mmol/L Anion Gap 8 Blood Urea Nitrogen 59 mg/dL Creatinine 1.5 mg/dL Estimated GFR (Cockcroft-Gault) 36.9 BUN/Creatinine Ratio 39 Glucose Level 139 mg/dL Calcium Level 8.9 mg/dL Phosphorus Level 3.9 mg/dL Magnesium Level 2.0 mg/dL Total Bilirubin 0.6 mg/dL Aspartate Amino Transf (AST/SGOT) 31 U/L Alanine Aminotransferase (ALT/SGPT) 16 U/L Alkaline Phosphatase 72 U/L Total Protein 6.1 g/dL Albumin 3.1 g/dL Albumin/Globulin Ratio 1.0 Hepatitis B Surface Antigen Nonreactive URINE CULTURE RES 1 Final No growth Imaging: C/A/P CT 08/01 IMPRESSION: 1. Large bilateral effusions. 2. Atelectasis of both lungs. IMPRESSION: 1. Diffuse pancreatic necrosis. 2. A extensive retroperitoneal fluid and inflammation. 3. Cholelithiasis. 4. Moderate to large volume ascites with little change. PE: GEN: NAD LUNGS: trach/vent, clear HEART: RRR ABD: distended, non-tender apparently, NG bilious NEURO/PSYCH: awake, makes eye contact A/P: Gallstone pancreatitis, MOSF -- Interval CT as above, note plans for speech eval. Hemodynamically unstable?: No Is patient in severe pain?: No Is NPO status required?: No CYNDEE FALCON Aug 03, 2019 09:45
[2019-08-03] MEDS: MEROPENEM 500 MG in IV NORMAL SALINE 50ML 50 ML IV SCH ×2 (09:58→22:21)
--- NOTE | 2019-08-03 10:11 | PDOC ---
PULMONARY PROGRESS NOTES Subjective Patient intubated on 07/10 , s/p trach more awake, tracking AC mode Vitals Vital Signs Date Time Temp Pulse Resp B/P (MAP) Pulse Ox O2 Delivery O2 Flow Rate FiO2 08/03/19 09:00 88 19 154/81 (105) 99 Ventilator 08/03/19 08:00 99.6 99.6 08/03/19 01:42 6.0 Lungs: Other (dimished in BLL) Cardiovascular: S1, S2 Abdomen: Non-tender, Other (distended) Extremities: Other (+3 generalized edema ) Skin: Warm, Dry Labs Laboratory Tests Test 08/01/19 14:11 08/01/19 15:00 08/01/19 18:26 08/02/19 01:07 Glucose (Fingerstick) 151 mg/dL (70-99) 213 mg/dL (70-99) 174 mg/dL (70-99) O2 Saturation 94 % (92-99) Arterial Blood pH 7.46 (7.35-7.45) Arterial Blood pCO2 at Patient Temp 38 mmHg (35-46) Arterial Blood pO2 at Patient Temp 74 mmHg (75-108) Arterial Blood HCO3 26 mmol/L (21-28) Arterial Blood Base Excess 2 mmol/L (-3-3) FiO2 35 Test 08/02/19 06:39 08/02/19 09:00 08/02/19 14:37 08/02/19 17:27 Glucose (Fingerstick) 157 mg/dL (70-99) 153 mg/dL (70-99) 205 mg/dL (70-99) White Blood Count 9.8 x10^3/uL (4.0-11.0) Red Blood Count 2.87 x10^6/uL (3.50-5.40) Hemoglobin 9.2 g/dL (12.0-15.5) Hematocrit 27.9 % (36.0-47.0) Mean Corpuscular Volume 97 fL (79-100) Mean Corpuscular Hemoglobin 32 pg (25-35) Mean Corpuscular Hemoglobin Concent 33 g/dL (31-37) Red Cell Distribution Width 19.2 % (11.5-14.5) Platelet Count 380 x10^3/uL (140-400) Sodium Level 137 mmol/L (136-145) Potassium Level 3.7 mmol/L (3.5-5.1) Chloride Level 98 mmol/L (98-107) Carbon Dioxide Level 29 mmol/L (21-32) Anion Gap 10 (6-14) Blood Urea Nitrogen 64 mg/dL (7-20) Creatinine 1.7 mg/dL (0.6-1.0) Estimated GFR (Cockcroft-Gault) 31.9 Glucose Level 166 mg/dL (70-99) Calcium Level 9.0 mg/dL (8.5-10.1) Test 08/02/19 23:34 08/03/19 05:41 08/03/19 05:45 Glucose (Fingerstick) 167 mg/dL (70-99) 130 mg/dL (70-99) White Blood Count 5.8 x10^3/uL (4.0-11.0) Red Blood Count 2.61 x10^6/uL (3.50-5.40) Hemoglobin 8.2 g/dL (12.0-15.5) Hematocrit 25.2 % (36.0-47.0) Mean Corpuscular Volume 97 fL (79-100) Mean Corpuscular Hemoglobin 32 pg (25-35) Mean Corpuscular Hemoglobin Concent 33 g/dL (31-37) Red Cell Distribution Width 18.6 % (11.5-14.5) Platelet Count 433 x10^3/uL (140-400) Neutrophils (%) (Auto) 70 % (31-73) Lymphocytes (%) (Auto) 16 % (24-48) Monocytes (%) (Auto) 13 % (0-9) Eosinophils (%) (Auto) 1 % (0-3) Basophils (%) (Auto) 0 % (0-3) Neutrophils # (Auto) 4.0 x10^3/uL (1.8-7.7) Lymphocytes # (Auto) 0.9 x10^3/uL (1.0-4.8) Monocytes # (Auto) 0.8 x10^3/uL (0.0-1.1) Eosinophils # (Auto) 0.0 x10^3/uL (0.0-0.7) Basophils # (Auto) 0.0 x10^3/uL (0.0-0.2) Sodium Level 138 mmol/L (136-145) Potassium Level 3.9 mmol/L (3.5-5.1) Chloride Level 101 mmol/L (98-107) Carbon Dioxide Level 29 mmol/L (21-32) Anion Gap 8 (6-14) Blood Urea Nitrogen 59 mg/dL (7-20) Creatinine 1.5 mg/dL (0.6-1.0) Estimated GFR (Cockcroft-Gault) 36.9 BUN/Creatinine Ratio 39 (6-20) Glucose Level 139 mg/dL (70-99) Calcium Level 8.9 mg/dL (8.5-10.1) Phosphorus Level 3.9 mg/dL (2.6-4.7) Magnesium Level 2.0 mg/dL (1.8-2.4) Total Bilirubin 0.6 mg/dL (0.2-1.0) Aspartate Amino Transf (AST/SGOT) 31 U/L (15-37) Alanine Aminotransferase (ALT/SGPT) 16 U/L (14-59) Alkaline Phosphatase 72 U/L (46-116) Total Protein 6.1 g/dL (6.4-8.2) Albumin 3.1 g/dL (3.4-5.0) Albumin/Globulin Ratio 1.0 (1.0-1.7) Hepatitis B Surface Antigen Nonreactive (Nonreactive) Laboratory Tests Test 08/02/19 14:37 08/02/19 17:27 08/02/19 23:34 08/03/19 05:41 Glucose (Fingerstick) 153 mg/dL (70-99) 205 mg/dL (70-99) 167 mg/dL (70-99) 130 mg/dL (70-99) Test 08/03/19 05:45 White Blood Count 5.8 x10^3/uL (4.0-11.0) Red Blood Count 2.61 x10^6/uL (3.50-5.40) Hemoglobin 8.2 g/dL (12.0-15.5) Hematocrit 25.2 % (36.0-47.0) Mean Corpuscular Volume 97 fL (79-100) Mean Corpuscular Hemoglobin 32 pg (25-35) Mean Corpuscular Hemoglobin Concent 33 g/dL (31-37) Red Cell Distribution Width 18.6 % (11.5-14.5) Platelet Count 433 x10^3/uL (140-400) Neutrophils (%) (Auto) 70 % (31-73) Lymphocytes (%) (Auto) 16 % (24-48) Monocytes (%) (Auto) 13 % (0-9) Eosinophils (%) (Auto) 1 % (0-3) Basophils (%) (Auto) 0 % (0-3) Neutrophils # (Auto) 4.0 x10^3/uL (1.8-7.7) Lymphocytes # (Auto) 0.9 x10^3/uL (1.0-4.8) Monocytes # (Auto) 0.8 x10^3/uL (0.0-1.1) Eosinophils # (Auto) 0.0 x10^3/uL (0.0-0.7) Basophils # (Auto) 0.0 x10^3/uL (0.0-0.2) Sodium Level 138 mmol/L (136-145) Potassium Level 3.9 mmol/L (3.5-5.1) Chloride Level 101 mmol/L (98-107) Carbon Dioxide Level 29 mmol/L (21-32) Anion Gap 8 (6-14) Blood Urea Nitrogen 59 mg/dL (7-20) Creatinine 1.5 mg/dL (0.6-1.0) Estimated GFR (Cockcroft-Gault) 36.9 BUN/Creatinine Ratio 39 (6-20) Glucose Level 139 mg/dL (70-99) Calcium Level 8.9 mg/dL (8.5-10.1) Phosphorus Level 3.9 mg/dL (2.6-4.7) Magnesium Level 2.0 mg/dL (1.8-2.4) Total Bilirubin 0.6 mg/dL (0.2-1.0) Aspartate Amino Transf (AST/SGOT) 31 U/L (15-37) Alanine Aminotransferase (ALT/SGPT) 16 U/L (14-59) Alkaline Phosphatase 72 U/L (46-116) Total Protein 6.1 g/dL (6.4-8.2) Albumin 3.1 g/dL (3.4-5.0) Albumin/Globulin Ratio 1.0 (1.0-1.7) Hepatitis B Surface Antigen Nonreactive (Nonreactive) Medications Active Scripts Medications Dose Route/Sig Max Daily Dose Days Date Category Bisoprolol Fumarate 5 Mg Tablet 10 Mg PO DAILY 07/04/19 Reported Comments Chest x-ray reviewed 08/01 IMPRESSION: 1. moderate pleural effusions with associated atelectasis ct chest 08/01 moderate effusions Impression . IMPRESSION: 1. Acute hypoxemic respiratory failure secondary to ARDS status post trach, 2. Gallstone pancreatitis.with NECROSIS, NOT A SURGICAL CANDIDATE 3. Severe metabolic acidosis.stable 4. Acute kidney injury-stable, ON HD 5. Acute gallstone pancreatitis. 6. Hypoalbuminemia. 7. Moderate persistent effusions 8. Fever,improved, lines changed 9. Chronic anemia 10. Covid 19 testing negative 11. Moderate to large ascites 1 Plan . More awake today will dc fentanyl and do CPAP trial AC mode qhs febrile, w/u per ID. new lines done, ct chest/ abdomen reviewed Hold off on thoracentesis Will benefit from paracentesis if ok with surgery HD follow surgery and ID rec Discussed with RN and RT. Transfuse prn, check H/H -prn Antibiotics per ID, Follow nephrology recs Nutritional support with TPN off pressors Prognosis is guarded DVT/GI PPX d/w RN/RT CC time : 30 minutes reviewing labs, patient care and discussing will care team d/w DR Mai. ok with paracentesis VINAYAK LANDRUM MD Aug 03, 2019 10:11
[2019-08-03] MEDS: TPN PER PHARMACY MC PRN (10:54)
--- NOTE | 2019-08-03 10:54 | NUR ---
Pharmacy TPN Dosing Note S: SCOTT AVILA is a 48 year old F Currently receiving Central Continuous TPN started 07/06/19 B:Pertinent PMH: Necrotizing pancreatitis Height: 5 feet, 8 inches Weight: 105.3 kg Current diet: NPO LABS: Sodium: 138 Potassium: 3.9 Chloride: 101 Calcium: 8.9 Corrected Calcium: 9.62 Magnesium: 2 CO2: 29 SCr: 1.5 Glucose: 167, 130, 139 Albumin: 3.1 AST: 31 ALT: 16 TPN FORMULA: TPN TYPE: Central Continuous AMINO ACIDS: 125 gm DEXTROSE: 225 gm LIPIDS: 20 gm SODIUM CHLORIDE: 100 mEq POTASSIUM CHLORIDE: 20 mEq POTASSIUM PHOSPHATE: 19 mmol MAGNESIUM: 12 mEq CALCIUM: 15 mEq INSULIN: 40 units MULTIPLE VITAMIN: 10 ml TRACE ELEMENTS: 0.5 ml TPN PLAN: -Electrolytes and triglycerides WNL and stable. Continue same TPN. -No labs needed tomorrow due to TPN stability. R: Continue TPN @ current rate and with above formula. Will monitor electrolytes, glucose, and tolerance to TPN. SHARON CHRISTIANSON [facility], 08/03/19 1609
--- NOTE | 2019-08-03 11:33 | PDOC ---
Renal-Progress Notes Subjective Notes Notes STARTING TO WAKE UP History of Present Illness Hx of present illness IMPROVED Vitals Vitals Vital Signs Date Time Temp Pulse Resp B/P (MAP) Pulse Ox O2 Delivery O2 Flow Rate FiO2 08/03/19 11:00 81 21 133/77 (95) 99 Ventilator 08/03/19 08:00 99.6 99.6 08/03/19 01:42 6.0 Weight Weight [ ] I.O. Intake and Output Intake and Output 08/03/19 07:00 Intake Total 3415.28 ml Output Total 335 ml Balance 3080.28 ml Intake Oral 0 ml IV Total 3415.28 ml Output Urine Total 285 ml Gastric Drainage Total 50 ml Labs Labs Laboratory Tests Test 08/02/19 14:37 08/02/19 17:27 08/02/19 23:34 08/03/19 05:41 Glucose (Fingerstick) 153 mg/dL (70-99) 205 mg/dL (70-99) 167 mg/dL (70-99) 130 mg/dL (70-99) Test 08/03/19 05:45 White Blood Count 5.8 x10^3/uL (4.0-11.0) Red Blood Count 2.61 x10^6/uL (3.50-5.40) Hemoglobin 8.2 g/dL (12.0-15.5) Hematocrit 25.2 % (36.0-47.0) Mean Corpuscular Volume 97 fL (79-100) Mean Corpuscular Hemoglobin 32 pg (25-35) Mean Corpuscular Hemoglobin Concent 33 g/dL (31-37) Red Cell Distribution Width 18.6 % (11.5-14.5) Platelet Count 433 x10^3/uL (140-400) Neutrophils (%) (Auto) 70 % (31-73) Lymphocytes (%) (Auto) 16 % (24-48) Monocytes (%) (Auto) 13 % (0-9) Eosinophils (%) (Auto) 1 % (0-3) Basophils (%) (Auto) 0 % (0-3) Neutrophils # (Auto) 4.0 x10^3/uL (1.8-7.7) Lymphocytes # (Auto) 0.9 x10^3/uL (1.0-4.8) Monocytes # (Auto) 0.8 x10^3/uL (0.0-1.1) Eosinophils # (Auto) 0.0 x10^3/uL (0.0-0.7) Basophils # (Auto) 0.0 x10^3/uL (0.0-0.2) Sodium Level 138 mmol/L (136-145) Potassium Level 3.9 mmol/L (3.5-5.1) Chloride Level 101 mmol/L (98-107) Carbon Dioxide Level 29 mmol/L (21-32) Anion Gap 8 (6-14) Blood Urea Nitrogen 59 mg/dL (7-20) Creatinine 1.5 mg/dL (0.6-1.0) Estimated GFR (Cockcroft-Gault) 36.9 BUN/Creatinine Ratio 39 (6-20) Glucose Level 139 mg/dL (70-99) Calcium Level 8.9 mg/dL (8.5-10.1) Phosphorus Level 3.9 mg/dL (2.6-4.7) Magnesium Level 2.0 mg/dL (1.8-2.4) Total Bilirubin 0.6 mg/dL (0.2-1.0) Aspartate Amino Transf (AST/SGOT) 31 U/L (15-37) Alanine Aminotransferase (ALT/SGPT) 16 U/L (14-59) Alkaline Phosphatase 72 U/L (46-116) Total Protein 6.1 g/dL (6.4-8.2) Albumin 3.1 g/dL (3.4-5.0) Albumin/Globulin Ratio 1.0 (1.0-1.7) Hepatitis B Surface Antigen Nonreactive (Nonreactive) Micro Micro Microbiology 08/02/19 Blood Culture - Preliminary, Resulted NO GROWTH AFTER 1 DAY 07/31/19 Urine Culture - Final, Complete 07/31/19 Urine Culture Result 1 (ALEXANDRA) - Final, Complete Review of Systems Constitutional: yes: other (ON THE VENT) Physical Exam General Appearance: other (ON THE VENT) Skin: warm Respiratory: decreased breath sounds Heart: S1S2 Abdomen: soft, bowel sounds present Genitourinary: bladder flat Extremities: pulses present, edema Neurology: other (SEDATED) Assessment Assessment IMP [id number]- ANEMIA LEUCOCYTOSIS-IMPROVING ANASARCA DUE TO 3RD SPACING HYPERKALEMIA-RESOLVED ACIDOSIS AND ACIDEMIA-CONTROLLED ACUTE REPS FAILURE ACUTE PANCREATITIS HYPOALBUMINEMIA HYPOCALCEMIA-FROM SAPONIFICATION-BETTER POOR HD CATHETER FUNCTION PLAN HD TOMORROW TPN TO CONTINUE NEEDED PRBC NEEDED CONT HIRAM VENT SUPPORT ANTIBIOTICS WILL FOLLOW DONI GARCIA MD Aug 03, 2019 11:33
--- NOTE | 2019-08-03 12:50 | NUR ---
SS following up with discharge planning. SS awaiting Medicaid application to be submitted. SS discussed with pt RN. Pt having Paracentesis today. Pt remains on vent with trach, hemodialysis, and TPN. Pt needing LTAC but is self pay pt. [facility] and [facility] not accepting self pay pt's at this time. SS will continue to follow for discharge planning.
[2019-08-03 12:54] LABS: PROTHROMBIN TIME PATIENT 15.6 SEC (11.7-14.0)
[2019-08-03] MEDS ORDERED: LIDOCAINE WITH 8.4% SOD BICARB 3 ML DISP.SYRIN. ONE (13:16)
[2019-08-03] MEDS ORDERED: LIDOCAINE WITH 8.4% SOD BICARB 3 ML DISP.SYRIN. INJ ONE (13:30)
--- NOTE | 2019-08-03 14:53 | NUR ---
Paracentesis complete-- 4.3 L removed from abdomen. Consent received from patient's daughters via phone. Dr. Villanueva and RN verified. Order received from Dr. Villanueva to give 37.5 gm Albumin 25%. Patient is currently awake and responding appropriately. See VS, assessments.
[2019-08-03] MEDS ORDERED: ALBUMIN HUMAN 25% 100 ML IV ONE (15:00)
[2019-08-03] MEDS ORDERED: ALBUMIN HUMAN 25% 50 ML IV ONE (15:00)
--- NOTE | 2019-08-03 15:10 | RAD ---
Procedure: Ultrasound guided paracentesis. Indication: Ascites, pancreatitis The procedure, risks, and complications, to include damage to hollow and solid abdominal viscera, bleeding, peritonitis and infection were explained to the patient and they understood same and wished to proceed. Consent form signed. The left upper quadrant was prepped and draped using maximal sterile technique and 1% Xylocaine used for local anesthesia. Ultrasound-guided paracentesis: Under ultrasound guidance, a large pocket of fluid was identified and an 18 gauge Yueh needle was inserted into the fluid and 4300 cc of thin, light brown fluid was removed. The catheter was removed and pressure placed. Sample of fluid was sent to the lab for testing. An ultrasound image was saved and sent to PACS. The patient tolerated the procedure well. Procedure was performed at bedside. IMPRESSION: Ultrasound-guided paracentesis.
[2019-08-03] MEDS ORDERED: DEXTROSE 70% IV SCH ×11 (22:00)
[2019-08-03] MEDS ORDERED: TOTAL PARENTERAL NUTRITION IV SCH ×11 (22:00)
[2019-08-03] MEDS ORDERED: AMINO ACID IV SCH ×11 (22:00)
[2019-08-03] MEDS ORDERED: [UNRECOGNIZED DRUG - OTHER] IV SCH ×11 (22:00)
[2019-08-04] VITALS (19 sets, daily range): BP systolic 77–168; BP diastolic 49–93
[2019-08-04] MEDS: DEXMEDETOMIDINE 400 MCG in IV NORMAL SALINE 100ML 96 ML IV PRN ×8 (01:38→22:08)
[2019-08-04] MEDS: INSULIN LISPRO 300 UNITS/3 ML VIAL. SQ SCH ×5 (06:00→23:58)
[2019-08-04 06:47] LABS: CALCIUM 9.1 mg/dL (8.5-10.1); CREATININE 1.8 mg/dL (0.6-1.0); GFR 29.9; PHOSPHORUS 5.1 mg/dL (2.6-4.7); POTASSIUM 3.9 mmol/L (3.5-5.1)
--- NOTE | 2019-08-04 07:44 | PDOC ---
Infectious Disease Note Subjective Subjective Alert and some better after paracentesis States ok after suctioning Trach, vent FiO2 35 % PEEP 5 TPN ROS ROS difficult to ascertain Vital Sign Vital Signs Vital Signs Date Time Temp Pulse Resp B/P (MAP) Pulse Ox O2 Delivery O2 Flow Rate FiO2 08/04/19 06:00 105 26 168/91 (116) 100 Ventilator 08/04/19 04:00 99.8 99.8 Physical Exam PHYSICAL EXAM GENERAL: Alert and coop. mouthing words Appears comfortable has generalized anasarca - s/p suctioning with RT. Feels warm HEENT: Pupils equal, + NGT, oral cavity dry NECK: Trach/vent LUNGS: Diminished aeration HEART: S1, S2, regular ABDOMEN: Less Distended, hypoactive BS, : Louis changed 08/01 EXTREMITIES: Generalized edema, no cyanosis, SCDs bilaterally DERMATOLOGIC: Warm and dry. No generalized rash. CENTRAL NERVOUS SYSTEM: Responsive and seems appropriate HDC, LIJ (08/01) and RUE-PICC removed 08/01 Labs Lab Laboratory Tests Test 08/03/19 11:57 08/03/19 12:35 08/03/19 23:48 08/04/19 06:15 Glucose (Fingerstick) 164 mg/dL (70-99) 158 mg/dL (70-99) Prothrombin Time 15.6 SEC (11.7-14.0) Prothromb Time International Ratio 1.3 (0.8-1.1) Sodium Level 139 mmol/L (136-145) Potassium Level 3.9 mmol/L (3.5-5.1) Chloride Level 102 mmol/L (98-107) Carbon Dioxide Level 25 mmol/L (21-32) Anion Gap 12 (6-14) Blood Urea Nitrogen 88 mg/dL (7-20) Creatinine 1.8 mg/dL (0.6-1.0) Estimated GFR (Cockcroft-Gault) 29.9 Glucose Level 120 mg/dL (70-99) Calcium Level 9.1 mg/dL (8.5-10.1) Phosphorus Level 5.1 mg/dL (2.6-4.7) Magnesium Level 2.0 mg/dL (1.8-2.4) Test 08/04/19 06:18 Glucose (Fingerstick) 106 mg/dL (70-99) Micro CT Chest Abd/pelv 08/01 CT CHEST: CT scan the chest was done without contrast. There is a tracheostomy tube in good position. There are large bilateral pleural effusions. There is atelectasis in both lung bases. There is no mediastinal adenopathy. Right arm PICC line extends to the superior vena cava. There is a temporary dialysis catheter extending to the vena cava near the atrium. IMPRESSION: 1. Large bilateral effusions. 2. Atelectasis of both lungs. End impression CT abdomen pelvis CT scan the abdomen pelvis was done following CT chest with contrast. NG tube extends into the stomach. Spleen is normal. There is no mass or hydronephrosis in the kidneys. There is a gallstone the gallbladder. A focal liver lesion is not identified. There is diffuse necrosis of the pancreas. There is peripancreatic fluid. The pattern is similar to the recent study. There is fluid in the paracolic gutters. There is retroperitoneal fluid surrounding the kidneys. Ascites extends into the pelvis. Ascites is similar to the prior study. There is no bowel obstruction. There is no free air. IMPRESSION: 1. Diffuse pancreatic necrosis. 2. A extensive retroperitoneal fluid and inflammation. 3. Cholelithiasis. 4. Moderate to large volume ascites with little change. CT A/P, 07/27 IMPRESSION: 1. Increased ascites. 2. 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 Cholelithiasis with thickening of the gallbladder wall. 4. Persistent pleural effusions and atelectasis in the lung bases. Objective Assessment Leukocytosis 07/28 -improved Fever - - better - ? pancreatitis. blood cults 07/28 neg.Urine - neg, New L IJ/Louis and PICC removed 08/01 S/p Paracentesis 08/02 - 4300 ml Severe acute gallstone pancreatitis with necrosis -CT 08/01 necrotizing pancreatitis with fluid and phlegmon at the pancreas Ascites Hypotension off levaphed Joseph Pleural effusions JUANA requiring HD - s/p RIJ temporary dialysis catheter replacement, 07/20 Vent dependent respiratory failure -s/p Trach placement -lung opacities, COVID-19 neg Anasarca - worse Anemia - S/p PRBC 07/13 Hypocalcemia Prediabetes HTN Diarrhea, C. diff neg 07/10 Anemia - S/p PRBCs Plan Plan of Care labs this am F/u Blood cults 08/01 Changed LIJ and pulled PICC line (HD not changed) and changed louis 08/01 cont merrem (07/26) and Zyvox (07/28) and micafungin Added Flagyl 08/01 -previously on cefepime, flagyl & dapto Gen surgery following f/u BC from 07/27 neg to date Maintain aspiration precautions Anemia deferred to primary Critically ill D/w Dr. Villanueva D/w nursing WILYL BARAKAT MD Aug 04, 2019 07:44
--- NOTE | 2019-08-04 08:17 | PDOC ---
PROGRESS NOTES Chief Complaint Chief Complaint A/P: Respiratory failure requiring mechanical ventilation (on vent since 07/10) bilateral pleural effusions/pulm edema Sepsis Severe Acute gallstone pancreatitis (not a surgical candidate at this time) with necrosis Acute kidney failure now requiring dialysis Salpingitis Gallstones (Calculus of gallbladder with acute cholecystitis without obstruction) HTN Leukocytosis Hypoxia Uterine fibroid Intractable pain Intractable nausea Covid 19 negative. Acute on chronic anemia EEG: No seizure activity. ESRD on HD Hyperglycemia, persistently in 200s History of Present Illness History of Present Illness Ms Diaz is a 48yo F w/ PMHx HTN, prediabetes who presented to the emergency room with complaints of abdominal pain on 07/04/2019. Found with Lipase 73793, AST 401, ALT 249, Bilirubin 1.4. CT abdomen confirms pancreatic inflammation, peripancreatic fluid and inflammatory changes around the pancreas consistent with pancreatitis. Cholelithiasis and 1.4cm uterine fibroid as well as possible left salpingitis. Admitted for further care GI, General surgery, ID, Pulm consulted. 07/04: No urine output. Added dilaudid for pain, PICC placed per IR. Renal US negative.Seen bedside in ICU, given 2L additional NSS and albumin infusion. Still hypotensive, started on levophed. Repeat CT abdomen with necrosis. 07/05: O2 saturation 87% on nasal cannula oxygen. Dialysis catheter per nephrology 07/06: She is now on BiPAP appears more ill, now on dialysis 07/07: Seen on BiPAP. Her mother and another family member are present and seemed to be good support for her. Currently on dialysis. Appears critically ill 07/08: Overnight Tmax 101.7 , still on BiPAP FiO2 40%, still on low dose Levophed gtt, TPN initiated. On dialysis 07/24: Tracheostomy 07/30: S/p tracheostomy on vent spontaneous respirations with 5 of pressure support 35% FiO2, rectal tube and a Lind, off pressors 07/31: Off pressors. Seen on dialysis this morning. BUN 80. Tracking with her eyes. Still on vent via trach. 08/01: BUN 68, Cr 1.7. Temp 100.2F axillary. WBC 9.8. Still on vent via trach. Tracking reasonably well. In obvious discomfort. Removed PICC and CVC LIJ and replaced. Tips sent for culture. CT chest/abd/pelvis with bilateral pleural effusion and ascites. 08/02: Renal function stable. Still on vent. More interactive today. Miming wish for food. Plan discussed for thoracentesis/paracentesis with daughters today. They were under impression patient was doing worse due to a miscommunication which has been clarified over the phone. 4.3L removed. BUN 88, Cr 1.8. Much more interactive today. Appears more comfortable today. Plan: Cont vent weaning, dialysis Vitals Vitals Vital Signs Date Time Temp Pulse Resp B/P (MAP) Pulse Ox O2 Delivery O2 Flow Rate FiO2 08/04/19 06:00 105 26 168/91 (116) 100 Ventilator 08/04/19 04:00 99.8 99.8 Physical Exam Physical Exam GENERAL: Alert and coop. mouthing words Appears comfortable has generalized anasarca HEENT: Pupils equal, + NGT, oral cavity dry NECK: Trach/vent LUNGS: Diminished aeration HEART: S1, S2, regular ABDOMEN: Distended, hypoactive BS, Rectal tube- out : Lind changed 08/01 EXTREMITIES: Generalized edema, no cyanosis, SCDs bilaterally DERMATOLOGIC: Warm and dry. No generalized rash. CENTRAL NERVOUS SYSTEM: Responsive and seems appropriate HDC, LIJ (08/01) and RUE-PICC removed 08/01 General: Alert, Cooperative, No acute distress Heart: Other (increased rate) Lungs: Other (dimished in BLL) Abdomen: Soft, No tenderness Extremities: No edema, Other (SOME CLUBBING ) Skin: Other (mottling noted to extremities ) Labs LABS Laboratory Tests Test 08/03/19 11:57 08/03/19 12:35 08/03/19 23:48 08/04/19 06:15 Glucose (Fingerstick) 164 mg/dL (70-99) 158 mg/dL (70-99) Prothrombin Time 15.6 SEC (11.7-14.0) Prothromb Time International Ratio 1.3 (0.8-1.1) Sodium Level 139 mmol/L (136-145) Potassium Level 3.9 mmol/L (3.5-5.1) Chloride Level 102 mmol/L (98-107) Carbon Dioxide Level 25 mmol/L (21-32) Anion Gap 12 (6-14) Blood Urea Nitrogen 88 mg/dL (7-20) Creatinine 1.8 mg/dL (0.6-1.0) Estimated GFR (Cockcroft-Gault) 29.9 Glucose Level 120 mg/dL (70-99) Calcium Level 9.1 mg/dL (8.5-10.1) Phosphorus Level 5.1 mg/dL (2.6-4.7) Magnesium Level 2.0 mg/dL (1.8-2.4) Test 08/04/19 06:18 Glucose (Fingerstick) 106 mg/dL (70-99) Assessment and Plan Assessmemt and Plan Problems Medical Problems: (1) Acute pancreatitis Status: Acute (2) Cholelithiasis Status: Acute Comment Review of Relevant I have reviewed the following items kolby (where applicable) has been applied. Labs Laboratory Tests Test 08/02/19 09:00 08/02/19 14:37 08/02/19 17:27 08/02/19 23:34 White Blood Count 9.8 x10^3/uL (4.0-11.0) Red Blood Count 2.87 x10^6/uL (3.50-5.40) Hemoglobin 9.2 g/dL (12.0-15.5) Hematocrit 27.9 % (36.0-47.0) Mean Corpuscular Volume 97 fL (79-100) Mean Corpuscular Hemoglobin 32 pg (25-35) Mean Corpuscular Hemoglobin Concent 33 g/dL (31-37) Red Cell Distribution Width 19.2 % (11.5-14.5) Platelet Count 380 x10^3/uL (140-400) Sodium Level 137 mmol/L (136-145) Potassium Level 3.7 mmol/L (3.5-5.1) Chloride Level 98 mmol/L (98-107) Carbon Dioxide Level 29 mmol/L (21-32) Anion Gap 10 (6-14) Blood Urea Nitrogen 64 mg/dL (7-20) Creatinine 1.7 mg/dL (0.6-1.0) Estimated GFR (Cockcroft-Gault) 31.9 Glucose Level 166 mg/dL (70-99) Calcium Level 9.0 mg/dL (8.5-10.1) Glucose (Fingerstick) 153 mg/dL (70-99) 205 mg/dL (70-99) 167 mg/dL (70-99) Test 08/03/19 05:41 08/03/19 05:45 08/03/19 11:57 08/03/19 12:35 Glucose (Fingerstick) 130 mg/dL (70-99) 164 mg/dL (70-99) White Blood Count 5.8 x10^3/uL (4.0-11.0) Red Blood Count 2.61 x10^6/uL (3.50-5.40) Hemoglobin 8.2 g/dL (12.0-15.5) Hematocrit 25.2 % (36.0-47.0) Mean Corpuscular Volume 97 fL (79-100) Mean Corpuscular Hemoglobin 32 pg (25-35) Mean Corpuscular Hemoglobin Concent 33 g/dL (31-37) Red Cell Distribution Width 18.6 % (11.5-14.5) Platelet Count 433 x10^3/uL (140-400) Neutrophils (%) (Auto) 70 % (31-73) Lymphocytes (%) (Auto) 16 % (24-48) Monocytes (%) (Auto) 13 % (0-9) Eosinophils (%) (Auto) 1 % (0-3) Basophils (%) (Auto) 0 % (0-3) Neutrophils # (Auto) 4.0 x10^3/uL (1.8-7.7) Lymphocytes # (Auto) 0.9 x10^3/uL (1.0-4.8) Monocytes # (Auto) 0.8 x10^3/uL (0.0-1.1) Eosinophils # (Auto) 0.0 x10^3/uL (0.0-0.7) Basophils # (Auto) 0.0 x10^3/uL (0.0-0.2) Sodium Level 138 mmol/L (136-145) Potassium Level 3.9 mmol/L (3.5-5.1) Chloride Level 101 mmol/L (98-107) Carbon Dioxide Level 29 mmol/L (21-32) Anion Gap 8 (6-14) Blood Urea Nitrogen 59 mg/dL (7-20) Creatinine 1.5 mg/dL (0.6-1.0) Estimated GFR (Cockcroft-Gault) 36.9 BUN/Creatinine Ratio 39 (6-20) Glucose Level 139 mg/dL (70-99) Calcium Level 8.9 mg/dL (8.5-10.1) Phosphorus Level 3.9 mg/dL (2.6-4.7) Magnesium Level 2.0 mg/dL (1.8-2.4) Total Bilirubin 0.6 mg/dL (0.2-1.0) Aspartate Amino Transf (AST/SGOT) 31 U/L (15-37) Alanine Aminotransferase (ALT/SGPT) 16 U/L (14-59) Alkaline Phosphatase 72 U/L (46-116) Total Protein 6.1 g/dL (6.4-8.2) Albumin 3.1 g/dL (3.4-5.0) Albumin/Globulin Ratio 1.0 (1.0-1.7) Hepatitis B Surface Antigen Nonreactive (Nonreactive) Prothrombin Time 15.6 SEC (11.7-14.0) Prothromb Time International Ratio 1.3 (0.8-1.1) Test 08/03/19 23:48 08/04/19 06:15 08/04/19 06:18 Glucose (Fingerstick) 158 mg/dL (70-99) 106 mg/dL (70-99) Sodium Level 139 mmol/L (136-145) Potassium Level 3.9 mmol/L (3.5-5.1) Chloride Level 102 mmol/L (98-107) Carbon Dioxide Level 25 mmol/L (21-32) Anion Gap 12 (6-14) Blood Urea Nitrogen 88 mg/dL (7-20) Creatinine 1.8 mg/dL (0.6-1.0) Estimated GFR (Cockcroft-Gault) 29.9 Glucose Level 120 mg/dL (70-99) Calcium Level 9.1 mg/dL (8.5-10.1) Phosphorus Level 5.1 mg/dL (2.6-4.7) Magnesium Level 2.0 mg/dL (1.8-2.4) Laboratory Tests Test 08/03/19 11:57 08/03/19 12:35 08/03/19 23:48 08/04/19 06:15 Glucose (Fingerstick) 164 mg/dL (70-99) 158 mg/dL (70-99) Prothrombin Time 15.6 SEC (11.7-14.0) Prothromb Time International Ratio 1.3 (0.8-1.1) Sodium Level 139 mmol/L (136-145) Potassium Level 3.9 mmol/L (3.5-5.1) Chloride Level 102 mmol/L (98-107) Carbon Dioxide Level 25 mmol/L (21-32) Anion Gap 12 (6-14) Blood Urea Nitrogen 88 mg/dL (7-20) Creatinine 1.8 mg/dL (0.6-1.0) Estimated GFR (Cockcroft-Gault) 29.9 Glucose Level 120 mg/dL (70-99) Calcium Level 9.1 mg/dL (8.5-10.1) Phosphorus Level 5.1 mg/dL (2.6-4.7) Magnesium Level 2.0 mg/dL (1.8-2.4) Test 08/04/19 06:18 Glucose (Fingerstick) 106 mg/dL (70-99) Microbiology 08/02/19 Blood Culture - Preliminary, Resulted NO GROWTH AFTER 1 DAY 07/31/19 Urine Culture - Final, Complete 07/31/19 Urine Culture Result 1 (ALEXANDRA) - Final, Complete Medications Current Medications Sodium Chloride 1,000 ml @ 1,000 mls/hr Q1H IV Last administered on 07/04/19at 03:00; Start 07/04/19 at 03:00; Stop 07/04/19 at 03:59; Status DC Ondansetron HCl (Zofran) 4 mg 1X ONCE IVP Last administered on 07/04/19at 03:27; Start 07/04/19 at 03:00; Stop 07/04/19 at 03:01; Status DC Morphine Sulfate (Morphine Sulfate) 4 mg 1X ONCE IV ; Start 07/04/19 at 03:00; Stop 07/04/19 at 03:01; Status Cancel Ketorolac Tromethamine (Toradol 30mg Vial) 30 mg 1X ONCE IV Last administered on 07/04/19at 02:54; Start 07/04/19 at 03:00; Stop 07/04/19 at 03:01; Status DC Fentanyl Citrate (Fentanyl 2ml Vial) 25 mcg 1X ONCE IVP Last administered on 07/04/19at 03:23; Start 07/04/19 at 03:30; Stop 07/04/19 at 03:31; Status DC Fentanyl Citrate (Fentanyl 2ml Vial) 100 mcg STK-MED ONCE .ROUTE ; Start 07/04/19 at 03:18; Stop 07/04/19 at 03:18; Status DC Iohexol (Omnipaque 350 Mg/ml) 90 ml 1X ONCE IV Last administered on 07/04/19at 03:25; Start 07/04/19 at 03:30; Stop 07/04/19 at 03:31; Status DC Info (CONTRAST GIVEN -- Rx MONITORING) 1 each PRN DAILY PRN MC SEE COMMENTS; Start 07/04/19 at 03:30; Stop 07/06/19 at 03:29; Status DC Hydromorphone HCl (Dilaudid) 0.5 mg 1X ONCE IV Last administered on 07/04/19at 03:55; Start 07/04/19 at 04:30; Stop 07/04/19 at 04:32; Status DC Ondansetron HCl (Zofran) 4 mg PRN Q8HRS PRN IV NAUSEA/VOMITING 1ST CHOICE; Start 07/04/19 at 05:00; Stop 07/04/19 at 09:27; Status DC Morphine Sulfate (Morphine Sulfate) 2 mg PRN Q2HR PRN IV SEVERE PAIN 7-10 Last administered on 07/05/19at 12:26; Start 07/04/19 at 05:00; Stop 07/05/19 at 14:15; Status DC Sodium Chloride 1,000 ml @ 125 mls/hr Q8H IV Last administered on 07/04/19at 20:56; Start 07/04/19 at 05:00; Stop 07/05/19 at 04:59; Status DC Hydromorphone HCl (Dilaudid) 0.5 mg PRN Q3HRS PRN IV SEVERE PAIN 7-10 Last administered on 07/05/19at 10:06; Start 07/04/19 at 05:00; Stop 07/05/19 at 12:01; Status DC Piperacillin Sod/ Tazobactam Sod 4.5 gm/Sodium Chloride 100 ml @ 200 mls/hr 1X ONCE IV Last administered on 07/04/19at 05:44; Start 07/04/19 at 06:00; Stop 07/04/19 at 06:29; Status DC Ondansetron HCl (Zofran) 4 mg PRN Q4HRS PRN IV NAUSEA/VOMITING 1ST CHOICE Last administered on 08/04/19at 00:00; Start 07/04/19 at 09:30 Insulin Human Lispro (HumaLOG) 0-9 UNITS Q6HRS SQ Last administered on 08/03/19at 23:50; Start 07/04/19 at 09:30 Dextrose (Dextrose 50%-Water Syringe) 12.5 gm PRN Q15MIN PRN IV SEE COMMENTS; Start 07/04/19 at 09:30 Pantoprazole Sodium (PROTONIX VIAL for IV PUSH) 40 mg DAILYAC IVP Last admin istered on 08/03/19at 07:38; Start 07/04/19 at 11:30 Prochlorperazine Edisylate (Compazine) 10 mg PRN Q6HRS PRN IV NAUSEA/VOMITING, 2nd CHOICE Last administered on 07/05/19at 00:42; Start 07/04/19 at 17:45 Atenolol (Tenormin) 100 mg DAILY PO ; Start 07/05/19 at 09:00; Stop 07/04/19 at 20:08; Status DC Metoprolol Tartrate (Lopressor Vial) 2.5 mg Q6HRS IVP Last administered on 07/05/19at 05:51; Start 07/04/19 at 20:15; Stop 07/05/19 at 10:02; Status DC Metoprolol Tartrate (Lopressor Vial) 5 mg Q6HRS IVP Last administered on 07/14/19at 00:12; Start 07/05/19 at 10:15; Stop 07/16/19 at 08:48; Status DC Hydromorphone HCl (Dilaudid) 1 mg PRN Q3HRS PRN IV SEVERE PAIN 7-10 Last administered on 07/11/19at 05:13; Start 07/05/19 at 12:00; Stop 07/19/19 at 00:25; Status DC Lidocaine HCl (Buffered Lidocaine 1%) 3 ml STK-MED ONCE .ROUTE ; Start 07/05/19 at 12:55; Stop 07/05/19 at 12:56; Status DC Albumin Human 500 ml @ 125 mls/hr 1X ONCE IV Last administered on 07/05/19at 14:33; Start 07/05/19 at 14:30; Stop 07/05/19 at 18:32; Status DC Norepinephrine Bitartrate 8 mg/ Dextrose 258 ml @ 17.299 mls/ hr CONT PRN IV PER PROTOCOL Last administered on 08/02/19at 12:48; Start 07/05/19 at 15:30 Sodium Chloride 1,000 ml @ 125 mls/hr Q8H IV Last administered on 07/05/19at 21:04; Start 07/05/19 at 16:00; Stop 07/06/19 at 02:42; Status DC Albumin Human 500 ml @ 125 mls/hr PRN BID PRN IV After every 2L NSS & BP < 90mm Last administered on 07/20/19at 14:21; Start 07/05/19 at 16:00 Iohexol (Omnipaque 300 Mg/ml) 60 ml 1X ONCE IV Last administered on 07/05/19at 17:20; Start 07/05/19 at 17:00; Stop 07/05/19 at 17:01; Status DC Info (CONTRAST GIVEN -- Rx MONITORING) 1 each PRN DAILY PRN MC SEE COMMENTS; Start 07/05/19 at 17:00; Stop 07/07/19 at 16:59; Status DC Meropenem 1 gm/ Sodium Chloride 100 ml @ 200 mls/hr Q8HRS IV Last administered on 07/06/19at 05:45; Start 07/05/19 at 20:00; Stop 07/06/19 at 08:48; Status DC Furosemide (Lasix) 40 mg 1X ONCE IVP Last administered on 07/05/19at 22:12; Start 07/05/19 at 22:30; Stop 07/05/19 at 22:31; Status DC Calcium Chloride 1000 mg/Sodium Chloride 110 ml @ 220 mls/hr 1X ONCE IV Last administered on 07/05/19at 22:11; Start 07/05/19 at 22:30; Stop 07/05/19 at 22:59; Status DC Albuterol Sulfate (Ventolin Neb Soln) 2.5 mg 1X ONCE NEB Last administered on 07/06/19at 00:56; Start 07/05/19 at 22:30; Stop 07/05/19 at 22:31; Status DC Insulin Human Regular (HumuLIN R VIAL) 5 unit 1X ONCE IV Last administered on 07/05/19at 22:14; Start 07/05/19 at 22:30; Stop 07/05/19 at 22:31; Status DC Magnesium Sulfate 50 ml @ 25 mls/hr 1X ONCE IV Last administered on 07/06/19at 02:57; Start 07/06/19 at 03:00; Stop 07/06/19 at 04:59; Status DC Calcium Gluconate 1000 mg/Sodium Chloride 110 ml @ 220 mls/hr 1X ONCE IV Last administered on 07/06/19at 02:46; Start 07/06/19 at 03:00; Stop 07/06/19 at 03:29; Status DC Sodium Chloride 1,000 ml @ 200 mls/hr Q5H IV Last administered on 07/06/19at 02:46; Start 07/06/19 at 03:00; Stop 07/06/19 at 10:21; Status DC Calcium Gluconate 1000 mg/Sodium Chloride 110 ml @ 220 mls/hr 1X ONCE IV Last administered on 07/06/19at 03:21; Start 07/06/19 at 03:30; Stop 07/06/19 at 03:59; Status DC Sodium Bicarbonate 50 meq/Sodium Chloride 1,050 ml @ 75 mls/hr Q14H IV Last administered on 07/10/19at 21:10; Start 07/06/19 at 07:30; Stop 07/11/19 at 10:28; Status DC Calcium Gluconate 2000 mg/Sodium Chloride 120 ml @ 220 mls/hr 1X ONCE IV Last administered on 07/06/19at 09:05; Start 07/06/19 at 07:30; Stop 07/06/19 at 08:02; Status DC Lidocaine HCl (Xylocaine-Mpf 1% 2ml Vial) 2 ml STK-MED ONCE .ROUTE ; Start 07/06/19 at 08:47; Stop 07/06/19 at 08:47; Status DC Meropenem 500 mg/ Sodium Chloride 50 ml @ 100 mls/hr Q12HR IV Last administered on 07/11/19at 21:01; Start 07/06/19 at 18:00; Stop 07/12/19 at 07:58; Status DC Lidocaine HCl (Buffered Lidocaine 1%) 3 ml STK-MED ONCE .ROUTE ; Start 07/06/19 at 09:46; Stop 07/06/19 at 09:46; Status DC Lidocaine HCl (Buffered Lidocaine 1%) 6 ml 1X ONCE INJ Last administered on 07/06/19at 10:26; Start 07/06/19 at 10:15; Stop 07/06/19 at 10:16; Status DC Info (Tpn Per Pharmacy) 1 each PRN DAILY PRN MC SEE COMMENTS Last administered on 08/03/19at 10:54; Start 07/06/19 at 12:00 Sodium Chloride 1,000 ml @ 1,000 mls/hr Q1H PRN IV hypotension; Start 07/06/19 at 12:07; Stop 07/06/19 at 18:06; Status DC Diphenhydramine HCl (Benadryl) 25 mg 1X PRN PRN IV ITCHING; Start 07/06/19 at 12:15; Stop 07/07/19 at 12:14; Status DC Diphenhydramine HCl (Benadryl) 25 mg 1X PRN PRN IV ITCHING; Start 07/06/19 at 12:15; Stop 07/07/19 at 12:14; Status DC Sodium Chloride 1,000 ml @ 400 mls/hr Q2H30M PRN IV PATENCY; Start 07/06/19 at 12:07; Stop 07/07/19 at 00:06; Status DC Info (PHARMACY MONITORING -- do not chart) 1 each PRN DAILY PRN MC SEE COMMENTS; Start 07/06/19 at 12:15; Stop 07/08/19 at 08:13; Status DC Sodium Chloride 90 meq/Calcium Gluconate 10 meq/ Multivitamins 10 ml/Chromium/ Copper/Manganese/ Seleni/Zn 1 ml/ Total Parenteral Nutrition/Amino Acids/Dextrose/ Fat Emulsion Intravenous 55.005 ml @ 2.292 mls/hr TPN CONT IV ; Start 07/06/19 at 22:00; Stop 07/06/19 at 12:33; Status DC Info (Tpn Per Pharmacy) 1 each PRN DAILY PRN MC SEE COMMENTS; Start 07/06/19 at 12:30; Status UNV Sodium Chloride 90 meq/Calcium Gluconate 10 meq/ Multivitamins 10 ml/Chromium/ Copper/Manganese/ Seleni/Zn 0.5 ml/ Total Parenteral Nutrition/Amino Acids/Dextrose/ Fat Emulsion Intravenous 1,512 ml @ 63 mls/hr TPN CONT IV Last administered on 07/06/19at 22:06; Start 07/06/19 at 22:00; Stop 07/07/19 at 21:59; Status DC Calcium Carbonate/ Glycine (Tums) 500 mg PRN AFTMEALHC PRN PO INDIGESTION; Start 07/06/19 at 17:45 Calcium Gluconate (Calcium Gluconate) 2,000 mg 1X ONCE IVP Last administered on 07/07/19at 02:19; Start 07/07/19 at 02:15; Stop 07/07/19 at 02:16; Status DC Calcium Chloride 3000 mg/Sodium Chloride 1,030 ml @ 50 mls/hr [id number] IV Last administered on 07/09/19at 02:17; Start 07/07/19 at 08:00; Stop 07/09/19 at 15:23; Status DC Lorazepam (Ativan Inj) 1 mg PRN Q4HRS PRN IVP ANXIETY / AGITATION, 2nd choic Last administered on 08/02/19at 11:06; Start 07/07/19 at 09:00 Sodium Chloride 1,000 ml @ 1,000 mls/hr Q1H PRN IV hypotension; Start 07/07/19 at 08:56; Stop 07/07/19 at 14:55; Status DC Albumin Human 200 ml @ 200 mls/hr 1X PRN PRN IV Hypotension; Start 07/07/19 at 09:00; Stop 07/07/19 at 14:59; Status DC Diphenhydramine HCl (Benadryl) 25 mg 1X PRN PRN IV ITCHING; Start 07/07/19 at 09:00; Stop 07/08/19 at 08:59; Status DC Diphenhydramine HCl (Benadryl) 25 mg 1X PRN PRN IV ITCHING; Start 07/07/19 at 09:00; Stop 07/08/19 at 08:59; Status DC Sodium Chloride 1,000 ml @ 400 mls/hr Q2H30M PRN IV PATENCY; Start 07/07/19 at 08:56; Stop 07/07/19 at 20:55; Status DC Info (PHARMACY MONITORING -- do not chart) 1 each PRN DAILY PRN MC SEE COMMENTS; Start 07/07/19 at 09:00; Status UNV Info (PHARMACY MONITORING -- do not chart) 1 each PRN DAILY PRN MC SEE COMMENTS; Start 07/07/19 at 09:00; Stop 07/08/19 at 08:13; Status DC Digoxin (Lanoxin) 500 mcg 1X ONCE IV Last administered on 07/07/19at 10:04; Start 07/07/19 at 10:00; Stop 07/07/19 at 10:01; Status DC Digoxin (Lanoxin) 125 mcg 1X ONCE IV Last administered on 07/07/19at 17:10; Start 07/07/19 at 18:00; Stop 07/07/19 at 18:01; Status DC Magnesium Sulfate 100 ml @ 25 mls/hr 1X ONCE IV Last administered on 07/07/19at 12:48; Start 07/07/19 at 13:00; Stop 07/07/19 at 16:59; Status DC Sodium Chloride 90 meq/Magnesium Sulfate 10 meq/ Calcium Gluconate 20 meq/ Multivitamins 10 ml/Chromium/ Copper/Manganese/ Seleni/Zn 0.5 ml/ Total Parenteral Nutrition/Amino Acids/Dextrose/ Fat Emulsion Intravenous 1,512 ml @ 63 mls/hr TPN CONT IV Last administered on 07/07/19at 22:25; Start 07/07/19 at 22:00; Stop 07/08/19 at 21:59; Status DC Sodium Chloride 1,000 ml @ 1,000 mls/hr Q1H PRN IV hypotension; Start 07/08/19 at 08:05; Stop 07/08/19 at 14:04; Status DC Albumin Human 200 ml @ 200 mls/hr 1X ONCE IV Last administered on 07/08/19at 08:57; Start 07/08/19 at 08:15; Stop 07/08/19 at 09:14; Status DC Diphenhydramine HCl (Benadryl) 25 mg 1X PRN PRN IV ITCHING; Start 07/08/19 at 08:15; Stop 07/09/19 at 08:14; Status DC Diphenhydramine HCl (Benadryl) 25 mg 1X PRN PRN IV ITCHING; Start 07/08/19 at 08:15; Stop 07/09/19 at 08:14; Status DC Sodium Chloride 1,000 ml @ 400 mls/hr Q2H30M PRN IV PATENCY; Start 07/08/19 at 08:05; Stop 07/08/19 at 20:04; Status DC Info (PHARMACY MONITORING -- do not chart) 1 each PRN DAILY PRN MC SEE COMMENTS; Start 07/08/19 at 08:15; Stop 07/12/19 at 07:57; Status DC Sodium Chloride 90 meq/Potassium Chloride 15 meq/ Potassium Phosphate 10 mmol/ Magnesium Sulfate 10 meq/Calcium Gluconate 20 meq/ Multivitamins 10 ml/Chromium/ Copper/Manganese/ Seleni/Zn 0.5 ml/ Total Parenteral Nutrition/Amino Acids/Dextrose/ Fat Emulsion Intravenous 1,512 ml @ 63 mls/hr TPN CONT IV Last administered on 07/08/19at 21:01; Start 07/08/19 at 22:00; Stop 07/09/19 at 21:59; Status DC Potassium Chloride/Water 100 ml @ 100 mls/hr 1X ONCE IV Last administered on 07/08/19at 14:09; Start 07/08/19 at 14:00; Stop 07/08/19 at 14:59; Status DC Benzocaine (Hurricaine One) 1 spray 1X ONCE MM Last administered on 07/08/19at 16:38; Start 07/08/19 at 14:30; Stop 07/08/19 at 14:31; Status DC Lidocaine HCl (Glydo (Lidocaine) Jelly) 1 ramu 1X ONCE MM Last administered on 07/08/19at 16:38; Start 07/08/19 at 14:30; Stop 07/08/19 at 14:31; Status DC Linezolid/Dextrose 300 ml @ 300 mls/hr Q12HR IV Last administered on 07/14/19at 21:04; Start 07/08/19 at 20:00; Stop 07/15/19 at 07:50; Status DC Acetaminophen (Tylenol) 650 mg PRN Q6HRS PRN PO MILD PAIN / TEMP; Start 07/09/19 at 03:30; Stop 07/09/19 at 03:36; Status DC Acetaminophen (Tylenol) 650 mg PRN Q6HRS PRN PEG MILD PAIN / TEMP Last administered on 07/14/19at 07:35; Start 07/09/19 at 03:36 Sodium Chloride 1,000 ml @ 1,000 mls/hr Q1H PRN IV hypotension; Start 07/09/19 at 07:50; Stop 07/09/19 at 13:49; Status DC Albumin Human 200 ml @ 200 mls/hr 1X PRN PRN IV Hypotension; Start 07/09/19 at 08:00; Stop 07/09/19 at 13:59; Status DC Sodium Chloride (Normal Saline Flush) 10 ml 1X PRN PRN IV AP catheter pack; Start 07/09/19 at 08:00; Stop 07/10/19 at 07:59; Status DC Sodium Chloride (Normal Saline Flush) 10 ml 1X PRN PRN IV [employer] catheter pack; Start 07/09/19 at 08:00; Stop 07/10/19 at 07:59; Status DC Sodium Chloride 1,000 ml @ 400 mls/hr Q2H30M PRN IV PATENCY; Start 07/09/19 at 07:50; Stop 07/09/19 at 19:49; Status DC Info (PHARMACY MONITORING -- do not chart) 1 each PRN DAILY PRN MC SEE COMMENTS; Start 07/09/19 at 08:00; Status UNV Info (PHARMACY MONITORING -- do not chart) 1 each PRN DAILY PRN MC SEE COMMENTS; Start 07/09/19 at 08:00; Stop 07/11/19 at 08:25; Status DC Sodium Chloride 90 meq/Potassium Chloride 15 meq/ Potassium Phosphate 10 mmol/ Magnesium Sulfate 10 meq/Calcium Gluconate 20 meq/ Multivitamins 10 ml/Chromium/ Copper/Manganese/ Seleni/Zn 0.5 ml/ Total Parenteral Nutrition/Amino Acids/Dextrose/ Fat Emulsion Intravenous 1,512 ml @ 63 mls/hr TPN CONT IV Last administered on 07/09/19at 20:57; Start 07/09/19 at 22:00; Stop 07/10/19 at 21:59; Status DC Sodium Chloride 90 meq/Potassium Chloride 15 meq/ Potassium Phosphate 15 mmol/ Magnesium Sulfate 10 meq/Calcium Gluconate 20 meq/ Multivitamins 10 ml/Chromium/ Copper/Manganese/ Seleni/Zn 0.5 ml/ Total Parenteral Nutrition/Amino Acids/Dextrose/ Fat Emulsion Intravenous 1,512 ml @ 63 mls/hr TPN CONT IV ; Start 07/10/19 at 22:00; Stop 07/10/19 at 14:16; Status DC Sodium Chloride 90 meq/Potassium Chloride 15 meq/ Potassium Phosphate 15 mmol/ Magnesium Sulfate 10 meq/Calcium Gluconate 20 meq/ Multivitamins 10 ml/Chromium/ Copper/Manganese/ Seleni/Zn 0.5 ml/ Total Parenteral Nutrition/Amino Acids/Dextrose/ Fat Emulsion Intravenous 1,200 ml @ 50 mls/hr TPN CONT IV ; Start 07/10/19 at 22:00; Stop 07/10/19 at 14:17; Status DC Sodium Chloride 90 meq/Potassium Chloride 15 meq/ Potassium Phosphate 10 mmol/ Magnesium Sulfate 10 meq/Calcium Gluconate 20 meq/ Multivitamins 10 ml/Chromium/ Copper/Manganese/ Seleni/Zn 0.5 ml/ Total Parenteral Nutrition/Amino Acids/Dextrose/ Fat Emulsion Intravenous 1,200 ml @ 50 mls/hr TPN CONT IV Last administered on 07/10/19at 23:29; Start 07/10/19 at 22:00; Stop 07/11/19 at 21:59; Status DC Sodium Chloride 1,000 ml @ 1,000 mls/hr Q1H PRN IV hypotension; Start 07/11/19 at 07:28; Stop 07/11/19 at 13:27; Status DC Albumin Human 200 ml @ 200 mls/hr 1X ONCE IV Last administered on 07/11/19at 08:51; Start 07/11/19 at 07:30; Stop 07/11/19 at 08:29; Status DC Diphenhydramine HCl (Benadryl) 25 mg 1X PRN PRN IV ITCHING; Start 07/11/19 at 07:30; Stop 07/12/19 at 07:29; Status DC Diphenhydramine HCl (Benadryl) 25 mg 1X PRN PRN IV ITCHING; Start 07/11/19 at 07:30; Stop 07/12/19 at 07:29; Status DC Sodium Chloride 1,000 ml @ 400 mls/hr Q2H30M PRN IV PATENCY; Start 07/11/19 at 07:28; Stop 07/11/19 at 19:27; Status DC Info (PHARMACY MONITORING -- do not chart) 1 each PRN DAILY PRN MC SEE COMMENTS; Start 07/11/19 at 07:30; Stop 07/22/19 at 13:01; Status DC Metronidazole 100 ml @ 100 mls/hr Q6HRS IV Last administered on 07/27/19at 06:26; Start 07/11/19 at 08:30; Stop 07/27/19 at 09:58; Status DC Micafungin Sodium 100 mg/Dextrose 100 ml @ 100 mls/hr Q24H IV Last administered on 08/03/19at 08:54; Start 07/11/19 at 09:00 Propofol 0 ml @ As Directed STK-MED ONCE IV ; Start 07/11/19 at 07:53; Stop 07/11/19 at 07:53; Status DC Etomidate (Amidate) 20 mg STK-MED ONCE IV ; Start 07/11/19 at 07:53; Stop 07/11/19 at 07:54; Status DC Midazolam HCl (Versed) 5 mg STK-MED ONCE .ROUTE ; Start 07/11/19 at 07:57; Stop 07/11/19 at 07:57; Status DC Fentanyl Citrate 30 ml @ 0 mls/hr CONT PRN IV SEE PROTOCOL Last administered on 08/04/19at 03:26; Start 07/11/19 at 08:15 Artificial Tears (Artificial Tears) 1 drop PRN Q1HR PRN OU DRY EYE, 1st choice; Start 07/11/19 at 08:15 Midazolam HCl 50 mg/Sodium Chloride 50 ml @ 0 mls/hr CONT PRN IV SEE PROTOCOL Last administered on 07/14/19at 22:39; Start 07/11/19 at 08:15; Stop 07/16/19 at 15:59; Status DC Etomidate (Amidate) 8 mg 1X ONCE IV Last administered on 07/11/19at 08:33; Start 07/11/19 at 08:30; Stop 07/11/19 at 08:31; Status DC Succinylcholine Chloride (Anectine) 120 mg 1X ONCE IV Last administered on 07/11/19at 08:34; Start 07/11/19 at 08:30; Stop 07/11/19 at 08:31; Status DC Midazolam HCl (Versed) 5 mg 1X ONCE IV ; Start 07/11/19 at 08:30; Stop 07/11/19 at 08:31; Status DC Potassium Chloride 15 meq/ Bicarbonate Dialysis Soln w/ out KCl 5,007.5 ml @ 1,000 mls/ hr Q5H1M IV Last administered on 07/12/19at 11:11; Start 07/11/19 at 12:00; Stop 07/12/19 at 11:15; Status DC Potassium Chloride 15 meq/ Bicarbonate Dialysis Soln w/ out KCl 5,007.5 ml @ 1,000 mls/ hr Q5H1M IV Last administered on 07/12/19at 11:12; Start 07/11/19 at 12:00; Stop 07/12/19 at 11:17; Status DC Potassium Chloride 15 meq/ Bicarbonate Dialysis Soln w/ out KCl 5,007.5 ml @ 1,000 mls/ hr Q5H1M IV Last administered on 07/12/19at 11:11; Start 07/11/19 at 12:00; Stop 07/12/19 at 11:19; Status DC Sodium Chloride 90 meq/Potassium Chloride 15 meq/ Potassium Phosphate 10 mmol/ Magnesium Sulfate 10 meq/Calcium Gluconate 20 meq/ Multivitamins 10 ml/Chromium/ Copper/Manganese/ Seleni/Zn 0.5 ml/ Total Parenteral Nutrition/Amino Acids/Dextrose/ Fat Emulsion Intravenous 1,400 ml @ 58.333 mls/ hr TPN CONT IV Last administered on 07/11/19at 21:42; Start 07/11/19 at 22:00; Stop 07/12/19 at 21:59; Status DC Heparin Sodium (Porcine) (Heparin Sodium) 5,000 unit Q8HRS SQ Last administered on 07/16/19at 05:55; Start 07/11/19 at 15:00; Stop 07/16/19 at 13:28; Status DC Meropenem 500 mg/ Sodium Chloride 50 ml @ 100 mls/hr Q6HRS IV Last administered on 07/13/19at 06:00; Start 07/12/19 at 09:00; Stop 07/13/19 at 07:29; Status DC Potassium Phosphate 20 mmol/ Sodium Chloride 106.6667 ml @ 51.667 m... 1X ONCE IV Last administered on 07/12/19at 11:22; Start 07/12/19 at 10:15; Stop 07/12/19 at 12:18; Status DC Acetaminophen (Tylenol Supp) 650 mg PRN Q6HRS PRN SD MILD PAIN / TEMP Last administered on 08/02/19at 08:01; Start 07/12/19 at 10:30 Potassium Chloride/Water 100 ml @ 100 mls/hr Q1H IV Last administered on 07/12/19at 12:12; Start 07/12/19 at 11:00; Stop 07/12/19 at 12:59; Status DC Potassium Chloride 20 meq/ Bicarbonate Dialysis Soln w/ out KCl 5,010 ml @ 1,000 mls/hr Q5H1M IV Last administered on 07/13/19at 08:48; Start 07/12/19 at 12:00; Stop 07/13/19 at 13:03; Status DC Potassium Chloride 20 meq/ Bicarbonate Dialysis Soln w/ out KCl 5,010 ml @ 1,000 mls/hr Q5H1M IV Last administered on 07/17/19at 14:52; Start 07/12/19 at 11:30; Stop 07/17/19 at 19:59; Status DC Potassium Chloride 20 meq/ Bicarbonate Dialysis Soln w/ out KCl 5,010 ml @ 1,000 mls/hr Q5H1M IV Last administered on 07/17/19at 14:53; Start 07/12/19 at 11:30; Stop 07/17/19 at 19:59; Status DC Sodium Chloride 90 meq/Potassium Chloride 15 meq/ Potassium Phosphate 15 mmol/ Magnesium Sulfate 10 meq/Calcium Gluconate 15 meq/ Multivitamins 10 ml/Chromium/ Copper/Manganese/ Seleni/Zn 0.5 ml/ Total Parenteral Nutrition/Amino Acids/Dextrose/ Fat Emulsion Intravenous 1,400 ml @ 58.333 mls/ hr TPN CONT IV Last administered on 07/12/19at 22:17; Start 07/12/19 at 22:00; Stop 07/13/19 at 21:59; Status DC Cefepime HCl (Maxipime) 2 gm Q12HR IVP Last administered on 07/26/19at 20:56; Start 07/13/19 at 09:00; Stop 07/27/19 at 09:58; Status DC Daptomycin 500 mg/ Sodium Chloride 50 ml @ 100 mls/hr Q48H IV Last administered on 07/29/19at 09:57; Start 07/13/19 at 08:30; Stop 07/29/19 at 10:07; Status DC Lidocaine HCl (Buffered Lidocaine 1%) 3 ml 1X ONCE INJ Last administered on 07/13/19at 10:27; Start 07/13/19 at 10:30; Stop 07/13/19 at 10:31; Status DC Potassium Phosphate 20 mmol/ Sodium Chloride 106.6667 ml @ 51.667 m... 1X ONCE IV Last administered on 07/13/19at 12:51; Start 07/13/19 at 13:00; Stop 07/13/19 at 15:03; Status DC Sodium Chloride 90 meq/Potassium Chloride 15 meq/ Potassium Phosphate 18 mmol/ Magnesium Sulfate 8 meq/Calcium Gluconate 15 meq/ Multivitamins 10 ml/Chromium/ Copper/Manganese/ Seleni/Zn 0.5 ml/ Total Parenteral Nutrition/Amino Acids/Dextrose/ Fat Emulsion Intravenous 1,400 ml @ 58.333 mls/ hr TPN CONT IV Last administered on 07/13/19at 22:16; Start 07/13/19 at 22:00; Stop 07/14/19 at 21:59; Status DC Potassium Chloride 20 meq/ Bicarbonate Dialysis Soln w/ out KCl 5,010 ml @ 1,000 mls/hr Q5H1M IV Last administered on 07/17/19at 14:54; Start 07/13/19 at 16:00; Stop 07/17/19 at 19:59; Status DC Multi-Ingred Cream/Lotion/Oil/ Oint (Artificial Tears Eye Ointment) 1 ramu PRN Q1HR PRN OU DRY EYE, 2nd choice Last administered on 08/01/19at 08:19; Start 07/13/19 at 17:30 Sodium Chloride 90 meq/Potassium Chloride 15 meq/ Potassium Phosphate 18 mmol/ Magnesium Sulfate 8 meq/Calcium Gluconate 15 meq/ Multivitamins 10 ml/Chromium/ Copper/Manganese/ Seleni/Zn 0.5 ml/ Total Parenteral Nutrition/Amino Acids/Dextrose/ Fat Emulsion Intravenous 1,400 ml @ 58.333 mls/ hr TPN CONT IV Last administered on 07/14/19at 22:00; Start 07/14/19 at 22:00; Stop 07/15/19 at 21:59; Status DC Albumin Human 500 ml @ 125 mls/hr 1X ONCE IV ; Start 07/14/19 at 14:15; Stop 07/14/19 at 18:14; Status DC Sodium Chloride 90 meq/Potassium Chloride 15 meq/ Potassium Phosphate 18 mmol/ Magnesium Sulfate 8 meq/Calcium Gluconate 15 meq/ Multivitamins 10 ml/Chromium/ Copper/Manganese/ Seleni/Zn 0.5 ml/ Insulin Human Regular 10 unit/ Total Parenteral Nutrition/Amino Acids/Dextrose/ Fat Emulsion Intravenous 1,400 ml @ 58.333 mls/ hr TPN CONT IV Last administered on 07/15/19at 21:43; Start 07/15/19 at 22:00; Stop 07/16/19 at 21:59; Status DC Lidocaine HCl (Buffered Lidocaine 1%) 3 ml STK-MED ONCE .ROUTE ; Start 07/13/19 at 10:00; Stop 07/15/19 at 13:57; Status DC Midazolam HCl 100 mg/Sodium Chloride 100 ml @ 7 mls/hr CONT PRN IV SEE PROTOCOL Last administered on 07/27/19at 15:35; Start 07/16/19 at 16:00 Sodium Chloride 90 meq/Potassium Chloride 15 meq/ Potassium Phosphate 18 mmol/ Magnesium Sulfate 8 meq/Calcium Gluconate 15 meq/ Multivitamins 10 ml/Chromium/ Copper/Manganese/ Seleni/Zn 0.5 ml/ Insulin Human Regular 15 unit/ Total Parenteral Nutrition/Amino Acids/Dextrose/ Fat Emulsion Intravenous 1,400 ml @ 58.333 mls/ hr TPN CONT IV Last administered on 07/16/19at 20:34; Start 07/16/19 at 22:00; Stop 07/17/19 at 21:59; Status DC Info (Icu Electrolyte Protocol) 1 ea CONT PRN PRN MC PER PROTOCOL; Start 07/17/19 at 13:15 Sodium Chloride 90 meq/Potassium Chloride 15 meq/ Potassium Phosphate 18 mmol/ Magnesium Sulfate 8 meq/Calcium Gluconate 15 meq/ Multivitamins 10 ml/Chromium/ Copper/Manganese/ Seleni/Zn 0.5 ml/ Insulin Human Regular 15 unit/ Total Parenteral Nutrition/Amino Acids/Dextrose/ Fat Emulsion Intravenous 1,400 ml @ 58.333 mls/ hr TPN CONT IV Last administered on 07/17/19at 22:05; Start 07/17/19 at 22:00; Stop 07/18/19 at 21:59; Status DC Potassium Chloride 15 meq/ Bicarbonate Dialysis Soln w/ out KCl 5,007.5 ml @ 1,000 mls/ hr Q5H1M IV Last administered on 07/20/19at 18:14; Start 07/17/19 at 20:00; Stop 07/21/19 at 13:08; Status DC Potassium Chloride 15 meq/ Bicarbonate Dialysis Soln w/ out KCl 5,007.5 ml @ 1,000 mls/ hr Q5H1M IV Last administered on 07/20/19at 18:14; Start 07/17/19 at 20:00; Stop 07/21/19 at 13:08; Status DC Potassium Chloride 15 meq/ Bicarbonate Dialysis Soln w/ out KCl 5,007.5 ml @ 1,000 mls/ hr Q5H1M IV Last administered on 07/20/19at 18:14; Start 07/17/19 at 20:00; Stop 07/21/19 at 13:08; Status DC Iohexol (Omnipaque 240 Mg/ml) 30 ml 1X ONCE PO Last administered on 07/18/19at 11:30; Start 07/18/19 at 11:30; Stop 07/18/19 at 11:33; Status DC Info (CONTRAST GIVEN -- Rx MONITORING) 1 each PRN DAILY PRN MC SEE COMMENTS; Start 07/18/19 at 11:45; Stop 07/20/19 at 11:44; Status DC Sodium Chloride 90 meq/Potassium Chloride 15 meq/ Potassium Phosphate 18 mmol/ Magnesium Sulfate 8 meq/Calcium Gluconate 15 meq/ Multivitamins 10 ml/Chromium/ Copper/Manganese/ Seleni/Zn 0.5 ml/ Insulin Human Regular 15 unit/ Total Parenteral Nutrition/Amino Acids/Dextrose/ Fat Emulsion Intravenous 1,400 ml @ 58.333 mls/ hr TPN CONT IV Last administered on 07/18/19at 21:47; Start 07/18/19 at 22:00; Stop 07/19/19 at 21:59; Status DC Sodium Chloride 90 meq/Potassium Chloride 15 meq/ Potassium Phosphate 18 mmol/ Magnesium Sulfate 8 meq/Calcium Gluconate 15 meq/ Multivitamins 10 ml/Chromium/ Copper/Manganese/ Seleni/Zn 0.5 ml/ Insulin Human Regular 20 unit/ Total Parenteral Nutrition/Amino Acids/Dextrose/ Fat Emulsion Intravenous 1,400 ml @ 58.333 mls/ hr TPN CONT IV Last administered on 07/19/19at 21:36; Start 07/19/19 at 22:00; Stop 07/20/19 at 21:59; Status DC Alteplase, Recombinant (Cathflo For Central Catheter Clearance) 1 mg 1X ONCE INT CAT Last administered on 07/19/19at 20:03; Start 07/19/19 at 19:30; Stop 07/19/19 at 19:46; Status DC Alteplase, Recombinant (Cathflo For Central Catheter Clearance) 1 mg 1X ONCE INT CAT Last administered on 07/19/19at 22:05; Start 07/19/19 at 22:00; Stop 07/19/19 at 22:01; Status DC Sodium Chloride 90 meq/Potassium Chloride 15 meq/ Potassium Phosphate 18 mmol/ Magnesium Sulfate 8 meq/Calcium Gluconate 15 meq/ Multivitamins 10 ml/Chromium/ Copper/Manganese/ Seleni/Zn 0.5 ml/ Insulin Human Regular 20 unit/ Total Parenteral Nutrition/Amino Acids/Dextrose/ Fat Emulsion Intravenous 1,400 ml @ 58.333 mls/ hr TPN CONT IV Last administered on 07/20/19at 21:30; Start 07/20/19 at 22:00; Stop 07/21/19 at 21:59; Status DC Dexmedetomidine HCl 400 mcg/ Sodium Chloride 100 ml @ 0 mls/hr CONT PRN IV ANXIETY / AGITATION Last administered on 08/04/19at 04:31; Start 07/21/19 at 08:15 Sodium Chloride 500 ml @ 500 mls/hr 1X PRN PRN IV ELEVATED BP, SEE COMMENTS; Start 07/21/19 at 08:15 Atropine Sulfate (ATROPINE 0.5mg SYRINGE) 0.5 mg PRN Q5MIN PRN IV SEE COMMENTS; Start 07/21/19 at 08:15 Furosemide (Lasix) 20 mg 1X ONCE IVP Last administered on 07/21/19at 08:19; Start 07/21/19 at 08:15; Stop 07/21/19 at 08:16; Status DC Lidocaine HCl (Buffered Lidocaine 1%) 3 ml STK-MED ONCE .ROUTE ; Start 07/21/19 at 08:39; Stop 07/21/19 at 08:39; Status DC Lidocaine HCl (Buffered Lidocaine 1%) 6 ml 1X ONCE INJ Last administered on 07/21/19at 09:05; Start 07/21/19 at 09:00; Stop 07/21/19 at 09:06; Status DC Sodium Chloride 90 meq/Potassium Chloride 15 meq/ Potassium Phosphate 18 mmol/ Magnesium Sulfate 8 meq/Calcium Gluconate 15 meq/ Multivitamins 10 ml/Chromium/ Copper/Manganese/ Seleni/Zn 0.5 ml/ Insulin Human Regular 20 unit/ Total Parenteral Nutrition/Amino Acids/Dextrose/ Fat Emulsion Intravenous 1,400 ml @ 58.333 mls/ hr TPN CONT IV Last administered on 07/21/19at 22:45; Start 07/21/19 at 22:00; Stop 07/22/19 at 21:59; Status DC Sodium Chloride 1,000 ml @ 1,000 mls/hr Q1H PRN IV hypotension; Start 07/22/19 a t 07:30; Stop 07/22/19 at 13:29; Status DC Albumin Human 200 ml @ 200 mls/hr 1X PRN PRN IV Hypotension Last administered on 07/22/19at 09:36; Start 07/22/19 at 07:30; Stop 07/22/19 at 13:29; Status DC Sodium Chloride (Normal Saline Flush) 10 ml 1X PRN PRN IV AP catheter pack; Start 07/22/19 at 07:30; Stop 07/22/19 at 21:29; Status DC Sodium Chloride (Normal Saline Flush) 10 ml 1X PRN PRN IV [employer] catheter pack; Start 07/22/19 at 07:30; Stop 07/23/19 at 07:29; Status DC Sodium Chloride 1,000 ml @ 400 mls/hr Q2H30M PRN IV PATENCY; Start 07/22/19 at 07:30; Stop 07/22/19 at 19:29; Status DC Info (PHARMACY MONITORING -- do not chart) 1 each PRN DAILY PRN MC SEE COMMENTS; Start 07/22/19 at 07:30; Stop 07/22/19 at 13:02; Status DC Info (PHARMACY MONITORING -- do not chart) 1 each PRN DAILY PRN MC SEE COMMENTS; Start 07/22/19 at 07:30; Stop 07/24/19 at 12:45; Status DC Sodium Chloride 90 meq/Potassium Chloride 15 meq/ Potassium Phosphate 10 mmol/ Magnesium Sulfate 8 meq/Calcium Gluconate 15 meq/ Multivitamins 10 ml/Chromium/ Copper/Manganese/ Seleni/Zn 0.5 ml/ Insulin Human Regular 25 unit/ Total Parenteral Nutrition/Amino Acids/Dextrose/ Fat Emulsion Intravenous 1,400 ml @ 58.333 mls/ hr TPN CONT IV Last administered on 07/22/19at 22:19; Start 07/22/19 at 22:00; Stop 07/23/19 at 21:59; Status DC Heparin Sodium (Porcine) (Heparin Sodium) 5,000 unit Q12HR SQ Last administered on 08/03/19at 21:16; Start 07/22/19 at 21:00 Ondansetron HCl (Zofran) 4 mg PRN Q6HRS PRN IV NAUSEA/VOMITING; Start 07/25/19 at 07:00; Stop 07/26/19 at 06:59; Status DC Fentanyl Citrate (Fentanyl 2ml Vial) 25 mcg PRN Q5MIN PRN IV MILD PAIN 1-3; Start 07/25/19 at 07:00; Stop 07/26/19 at 06:59; Status DC Fentanyl Citrate (Fentanyl 2ml Vial) 50 mcg PRN Q5MIN PRN IV MODERATE TO SEVERE PAIN; Start 07/25/19 at 07:00; Stop 07/26/19 at 06:59; Status DC Ringer's Solution 1,000 ml @ 30 mls/hr Q24H IV ; Start 07/25/19 at 07:00; Stop 07/25/19 at 18:59; Status DC Lidocaine HCl (Xylocaine-Mpf 1% 2ml Vial) 2 ml PRN 1X PRN ID PRIOR TO IV START; Start 07/25/19 at 07:00; Stop 07/26/19 at 06:59; Status DC Prochlorperazine Edisylate (Compazine) 5 mg PACU PRN PRN IV NAUSEA, MRX1; Start 07/25/19 at 07:00; Stop 07/26/19 at 06:59; Status DC Sodium Chloride 1,000 ml @ 1,000 mls/hr Q1H PRN IV hypotension; Start 07/23/19 at 09:10; Stop 07/23/19 at 15:09; Status DC Albumin Human 200 ml @ 200 mls/hr 1X PRN PRN IV Hypotension Last administered on 07/23/19at 10:10; Start 07/23/19 at 09:15; Stop 07/23/19 at 15:14; Status DC Sodium Chloride 1,000 ml @ 400 mls/hr Q2H30M PRN IV PATENCY; Start 07/23/19 at 09:10; Stop 07/23/19 at 21:09; Status DC Info (PHARMACY MONITORING -- do not chart) 1 each PRN DAILY PRN SEE [facility] MENTS; Start 07/23/19 at 09:15; Stop 07/24/19 at 12:45; Status DC Info (PHARMACY MONITORING -- do not chart) 1 each PRN DAILY PRN MC SEE COMMENTS; Start 07/23/19 at 09:15; Stop 07/24/19 at 12:45; Status DC Sodium Chloride 90 meq/Potassium Chloride 15 meq/ Potassium Phosphate 10 mmol/ Magnesium Sulfate 8 meq/Calcium Gluconate 15 meq/ Multivitamins 10 ml/Chromium/ Copper/Manganese/ Seleni/Zn 0.5 ml/ Insulin Human Regular 25 unit/ Total Parenteral Nutrition/Amino Acids/Dextrose/ Fat Emulsion Intravenous 1,400 ml @ 58.333 mls/ hr TPN CONT IV Last administered on 07/23/19at 22:10; Start 07/23/19 at 22:00; Stop 07/24/19 at 21:59; Status DC Magnesium Sulfate 50 ml @ 25 mls/hr PRN DAILY PRN IV for Mag < 1.7 on am labs; Start 07/24/19 at 09:15 Sodium Chloride 90 meq/Potassium Chloride 15 meq/ Potassium Phosphate 10 mmol/ Magnesium Sulfate 8 meq/Calcium Gluconate 15 meq/ Multivitamins 10 ml/Chromium/ Copper/Manganese/ Seleni/Zn 0.5 ml/ Insulin Human Regular 25 unit/ Total Parenteral Nutrition/Amino Acids/Dextrose/ Fat Emulsion Intravenous 1,400 ml @ 58.333 mls/ hr TPN CONT IV Last administered on 07/24/19at 21:20; Start 07/24/19 at 22:00; Stop 07/25/19 at 21:59; Status DC Sodium Chloride 1,000 ml @ 1,000 mls/hr Q1H PRN IV hypotension; Start 07/24/19 at 12:23; Stop 07/24/19 at 18:22; Status DC Albumin Human 200 ml @ 200 mls/hr 1X ONCE IV Last administered on 07/24/19at 13:34; Start 07/24/19 at 12:30; Stop 07/24/19 at 13:29; Status DC Diphenhydramine HCl (Benadryl) 25 mg 1X PRN PRN IV ITCHING; Start 07/24/19 at 12:30; Stop 07/25/19 at 12:29; Status DC Diphenhydramine HCl (Benadryl) 25 mg 1X PRN PRN IV ITCHING; Start 07/24/19 at 12:30; Stop 07/25/19 at 12:29; Status DC Info (PHARMACY MONITORING -- do not chart) 1 each PRN DAILY PRN MC SEE COMMENTS; Start 07/24/19 at 12:30; Status Cancel Bupivacaine HCl/ Epinephrine Bitart (Sensorcain-Epi 0.5%-1:[id number] Mpf) 30 ml STK-MED ONCE .ROUTE Last administered on 07/25/19at 11:44; Start 07/25/19 at 11:00; Stop 07/25/19 at 11:01; Status DC Cellulose (Surgicel Fibrillar 1x2) 1 each STK-MED ONCE .ROUTE ; Start 07/25/19 at 11:00; Stop 07/25/19 at 11:01; Status DC Sodium Chloride 90 meq/Potassium Chloride 15 meq/ Potassium Phosphate 10 mmol/ Magnesium Sulfate 12 meq/Calcium Gluconate 15 meq/ Multivitamins 10 ml/Chromium/ Copper/Manganese/ Seleni/Zn 0.5 ml/ Insulin Human Regular 25 unit/ Total Parenteral Nutrition/Amino Acids/Dextrose/ Fat Emulsion Intravenous 1,400 ml @ 58.333 mls/ hr TPN CONT IV Last administered on 07/25/19at 22:24; Start 07/25/19 at 22:00; Stop 07/26/19 at 21:59; Status DC Propofol 20 ml @ As Directed STK-MED ONCE IV ; Start 07/25/19 at 11:07; Stop 07/25/19 at 11:07; Status DC Cellulose (Surgicel Hemostat 4x8) 1 each STK-MED ONCE .ROUTE Last administered on 07/25/19at 11:44; Start 07/25/19 at 11:55; Stop 07/25/19 at 11:56; Status DC Sevoflurane (Ultane) 60 ml STK-MED ONCE IH ; Start 07/25/19 at 12:46; Stop 07/25/19 at 12:46; Status DC Sodium Chloride 1,000 ml @ 1,000 mls/hr Q1H PRN IV hypotension; Start 07/25/19 at 13:51; Stop 07/25/19 at 19:50; Status DC Albumin Human 200 ml @ 200 mls/hr 1X PRN PRN IV Hypotension Last administered on 07/25/19at 14:51; Start 07/25/19 at 14:00; Stop 07/25/19 at 19:59; Status DC Diphenhydramine HCl (Benadryl) 25 mg 1X PRN PRN IV ITCHING; Start 07/25/19 at 14:00; Stop 07/26/19 at 13:59; Status DC Diphenhydramine HCl (Benadryl) 25 mg 1X PRN PRN IV ITCHING; Start 07/25/19 at 14:00; Stop 07/26/19 at 13:59; Status DC Sodium Chloride 1,000 ml @ 400 mls/hr Q2H30M PRN IV PATENCY; Start 07/25/19 at 13:51; Stop 07/26/19 at 01:50; Status DC Info (PHARMACY MONITORING -- do not chart) 1 each PRN DAILY PRN MC SEE COMMENTS; Start 07/25/19 at 14:00; Stop 07/28/19 at 08:16; Status DC Heparin Sodium (Porcine) (Hep Lock Adult) 500 unit STK-MED ONCE IVP ; Start 07/26/19 at 09:29; Stop 07/26/19 at 09:30; Status DC Sodium Chloride 1,000 ml @ 1,000 mls/hr Q1H PRN IV hypotension; Start 07/26/19 at 10:43; Stop 07/26/19 at 16:42; Status DC Sodium Chloride 1,000 ml @ 400 mls/hr Q2H30M PRN IV PATENCY; Start 07/26/19 at 10:43; Stop 07/26/19 at 22:42; Status DC Info (PHARMACY MONITORING -- do not chart) 1 each PRN DAILY PRN MC SEE COMMENTS; Start 07/26/19 at 10:45; Status UNV Info (PHARMACY MONITORING -- do not chart) 1 each PRN DAILY PRN MC SEE COMMENTS; Start 07/26/19 at 10:45; Status UNV Sodium Chloride 90 meq/Potassium Chloride 15 meq/ Magnesium Sulfate 12 meq/Calcium Gluconate 15 meq/ Multivitamins 10 ml/Chromium/ Copper/Manganese/ Seleni/Zn 0.5 ml/ Insulin Human Regular 25 unit/ Total Parenteral Nutrition/Amino Acids/Dextrose/ Fat Emulsion Intravenous 1,400 ml @ 58.333 mls/ hr TPN CONT IV Last administered on 07/26/19at 22:13; Start 07/26/19 at 22:00; Stop 07/27/19 at 21:59; Status DC Sodium Chloride 1,000 ml @ 1,000 mls/hr Q1H PRN IV hypotension; Start 07/27/19 at 07:50; Stop 07/27/19 at 13:49; Status DC Albumin Human 200 ml @ 200 mls/hr 1X ONCE IV ; Start 07/27/19 at 08:00; Stop 07/27/19 at 08:53; Status DC Diphenhydramine HCl (Benadryl) 25 mg 1X PRN PRN IV ITCHING; Start 07/27/19 at 08:00; Stop 07/28/19 at 07:59; Status DC Diphenhydramine HCl (Benadryl) 25 mg 1X PRN PRN IV ITCHING; Start 07/27/19 at 08:00; Stop 07/28/19 at 07:59; Status DC Info (PHARMACY MONITORING -- do not chart) 1 each PRN DAILY PRN MC SEE COMMENTS; Start 07/27/19 at 08:00; Stop 07/28/19 at 08:16; Status DC Albumin Human 50 ml @ 50 mls/hr 1X ONCE IV ; Start 07/27/19 at 08:53; Stop 07/27/19 at 08:56; Status DC Albumin Human 200 ml @ 50 mls/hr PRN 1X PRN IV HYPOTENSION Last administered on 08/02/19at 11:54; Start 07/27/19 at 09:00 Meropenem 500 mg/ Sodium Chloride 50 ml @ 100 mls/hr Q12H IV Last administered on 08/03/19at 22:21; Start 07/27/19 at 10:00 Sodium Chloride 90 meq/Magnesium Sulfate 12 meq/ Calcium Gluconate 15 meq/ Multivitamins 10 ml/Chromium/ Copper/Manganese/ Seleni/Zn 0.5 ml/ Insulin Human Regular 25 unit/ Total Parenteral Nutrition/Amino Acids/Dextrose/ Fat Emulsion Intravenous 1,400 ml @ 58.333 mls/ hr TPN CONT IV Last administered on 07/27/19at 21:41; Start 07/27/19 at 22:00; Stop 07/28/19 at 21:59; Status DC Sodium Chloride 1,000 ml @ 1,000 mls/hr Q1H PRN IV hypotension; Start 07/28/19 at 07:58; Stop 07/28/19 at 13:57; Status DC Albumin Human 200 ml @ 200 mls/hr 1X PRN PRN IV Hypotension Last administered on 07/28/19at 09:30; Start 07/28/19 at 08:00; Stop 07/28/19 at 13:59; Status DC Sodium Chloride 1,000 ml @ 400 mls/hr Q2H30M PRN IV PATENCY; Start 07/28/19 at 07:58; Stop 07/28/19 at 19:57; Status DC Info (PHARMACY MONITORING -- do not chart) 1 each PRN DAILY PRN MC SEE C OMMENTS; Start 07/28/19 at 08:00; Status Cancel Info (PHARMACY MONITORING -- do not chart) 1 each PRN DAILY PRN MC SEE COMMENTS ; Start 07/28/19 at 08:15; Status UNV Sodium Chloride 90 meq/Potassium Phosphate 5 mmol/ Magnesium Sulfate 12 meq/Calcium Gluconate 15 meq/ Multivitamins 10 ml/Chromium/ Copper/Manganese/ Seleni/Zn 0.5 ml/ Insulin Human Regular 30 unit/ Total Parenteral Nu trition/Amino Acids/Dextrose/ Fat Emulsion Intravenous 1,400 ml @ 58.333 mls/ hr TPN CONT IV Last administered on 07/28/19at 22:08; Start 07/28/19 at 22:00; Stop 07/29/19 at 21:59; Status DC Linezolid/Dextrose 300 ml @ 300 mls/hr Q12HR IV Last administered on 08/03/19at 21:16; Start 07/29/19 at 11:00 Sodium Chloride 90 meq/Potassium Phosphate 15 mmol/ Magnesium Sulfate 12 meq/Zachariah cium Gluconate 15 meq/ Multivitamins 10 ml/Chromium/ Copper/Manganese/ Seleni/Zn 0.5 ml/ Insulin Human Regular 30 unit/ Total Parenteral Nutrition/Amino Acids/Dextrose/ Fat Emulsion Intravenous 1,400 ml @ 58.333 mls/ hr TPN CONT IV Last administered on 07/29/19at 21:49; Start 07/29/19 at 22:00; Stop 07/30/19 at 21:59; Status DC Sodium Chloride 90 meq/Potassium Phosphate 15 mmol/ Magnesium Sulfate 12 meq/Calcium Gluconate 15 meq/ Multivitamins 10 ml/Chromium/ Copper/Manganese/ Seleni/Zn 0.5 ml/ Insulin Human Regular 40 unit/ Total Parenteral Nutrition/Amino Acids/Dextrose/ Fat Emulsion Intravenous 1,400 ml @ 58.333 mls/ hr TPN CONT IV Last administered on 07/30/19at 21:21; Start 07/30/19 at 22:00; Stop 07/31/19 at 21:59; Status DC Sodium Chloride 1,000 ml @ 1,000 mls/hr Q1H PRN IV hypotension; Start 07/30/19 at 13:26; Stop 07/30/19 at 19:25; Status DC Albumin Human 200 ml @ 200 mls/hr 1X PRN PRN IV Hypotension Last administered on 07/30/19at 15:00; Start 07/30/19 at 13:30; Stop 07/30/19 at 19:29; Status DC Sodium Chloride (Normal Saline Flush) 10 ml 1X PRN PRN IV AP catheter pack; Start 07/30/19 at 13:30; Stop 07/31/19 at 13:29; Status DC Sodium Chloride (Normal Saline Flush) 10 ml 1X PRN PRN IV [employer] catheter pack; Start 07/30/19 at 13:30; Stop 07/31/19 at 13:29; Status DC Sodium Chloride 1,000 ml @ 400 mls/hr Q2H30M PRN IV PATENCY; Start 07/30/19 at 13:26; Stop 07/31/19 at 01:25; Status DC Info (PHARMACY MONITORING -- do not chart) 1 each PRN DAILY PRN MC SEE COMMENTS; Start 07/30/19 at 13:30; Stop 07/30/19 at 13:33; Status DC Info (PHARMACY MONITORING -- do not chart) 1 each PRN DAILY PRN MC SEE COMMENTS; Start 07/30/19 at 13:30; Stop 07/30/19 at 13:34; Status DC Sodium Chloride 90 meq/Potassium Phosphate 19 mmol/ Magnesium Sulfate 12 meq/Calcium Gluconate 15 meq/ Multivitamins 10 ml/Chromium/ Copper/Manganese/ Seleni/Zn 0.5 ml/ Insulin Human Regular 40 unit/ Total Parenteral Nutrition/Amino Acids/Dextrose/ Fat Emulsion Intravenous 1,400 ml @ 58.333 mls/ hr TPN CONT IV Last administered on 07/31/19at 21:54; Start 07/31/19 at 22:00; Stop 08/01/19 at 21:59; Status DC Sodium Chloride 1,000 ml @ 1,000 mls/hr Q1H PRN IV hypotension; Start 08/01/19 at 09:35; Stop 08/01/19 at 15:34; Status DC Albumin Human 200 ml @ 200 mls/hr 1X PRN PRN IV Hypotension; Start 08/01/19 at 09:45; Stop 08/01/19 at 15:44; Status DC Diphenhydramine HCl (Benadryl) 25 mg 1X PRN PRN IV ITCHING; Start 08/01/19 at 09:45; Stop 08/02/19 at 09:44; Status DC Diphenhydramine HCl (Benadryl) 25 mg 1X PRN PRN IV ITCHING; Start 08/01/19 at 09:45; Stop 08/02/19 at 09:44; Status DC Sodium Chloride 1,000 ml @ 400 mls/hr Q2H30M PRN IV PATENCY; Start 08/01/19 at 09:35; Stop 08/01/19 at 21:34; Status DC Info (PHARMACY MONITORING -- do not chart) 1 each PRN DAILY PRN MC SEE COMMENTS ; Start 08/01/19 at 09:45; Status Cancel Sodium Chloride 100 meq/Potassium Phosphate 19 mmol/ Magnesium Sulfate 12 meq/Calcium Gluconate 15 meq/ Multivitamins 10 ml/Chromium/ Copper/Manganese/ Seleni/Zn 0.5 ml/ Insulin Human Regular 40 unit/ Potassium Chloride 20 meq/ Total Parenteral Nutrition/Amino Acids/Dextrose/ Fat Emulsion Intravenous 1,400 ml @ 58.333 mls/ hr TPN CONT IV Last administered on 08/01/19at 22:02; Start 08/01/19 at 22:00; Stop 08/02/19 at 21:59; Status DC Furosemide (Lasix) 40 mg 1X ONCE IVP Last administered on 08/01/19at 14:39; Start 08/01/19 at 14:30; Stop 08/01/19 at 14:31; Status DC Metronidazole 100 ml @ 100 mls/hr Q8HRS IV Last administered on 08/04/19at 06:09; Start 08/02/19 at 10:00 Sodium Chloride 1,000 ml @ 1,000 mls/hr Q1H PRN IV hypotension; Start 08/02/19 at 08:00; Stop 08/02/19 at 13:59; Status DC Albumin Human 200 ml @ 200 mls/hr 1X PRN PRN IV Hypotension; Start 08/02/19 at 08:00; Stop 08/02/19 at 13:59; Status DC Sodium Chloride 1,000 ml @ 400 mls/hr Q2H30M PRN IV PATENCY; Start 08/02/19 at 08:00; Stop 08/02/19 at 19:59; Status DC Info (PHARMACY MONITORING -- do not chart) 1 each PRN DAILY PRN MC SEE COMMENTS; Start 08/02/19 at 11:30; Status UNV Info (PHARMACY MONITORING -- do not chart) 1 each PRN DAILY PRN MC SEE COMMENTS; Start 08/02/19 at 11:30 Sodium Chloride 100 meq/Potassium Phosphate 19 mmol/ Magnesium Sulfate 12 meq/Calcium Gluconate 15 meq/ Multivitamins 10 ml/Chromium/ Copper/Manganese/ Seleni/Zn 0.5 ml/ Insulin Human Regular 40 unit/ Potassium Chloride 20 meq/ Total Parenteral Nutrition/Amino Acids/Dextrose/ Fat Emulsion Intravenous 1,400 ml @ 58.333 mls/ hr TPN CONT IV Last administered on 08/02/19at 21:52; Start 08/02/19 at 22:00; Stop 08/03/19 at 21:59; Status DC Sodium Chloride (Normal Saline Flush) 10 ml QSHIFT PRN IV AFTER MEDS AND BLOOD DRAWS; Start 08/02/19 at 15:00 Sodium Chloride (Normal Saline Flush) 10 ml PRN Q5MIN PRN IV AFTER MEDS AND BLOOD DRAWS; Start 08/02/19 at 15:00 Sodium Chloride (Normal Saline Flush) 20 ml PRN Q5MIN PRN IV AFTER MEDS AND BLOOD DRAWS; Start 08/02/19 at 15:00 Sodium Chloride 100 meq/Potassium Phosphate 19 mmol/ Magnesium Sulfate 12 meq/Calcium Gluconate 15 meq/ Multivitamins 10 ml/Chromium/ Copper/Manganese/ Seleni/Zn 0.5 ml/ Insulin Human Regular 40 unit/ Potassium Chloride 20 meq/ Total Parenteral Nutrition/Amino Acids/Dextrose/ Fat Emulsion Intravenous 1,400 ml @ 58.333 mls/ hr TPN CONT IV Last administered on 08/03/19at 21:20; Start 08/03/19 at 22:00; Stop 08/04/19 at 21:59 Lidocaine HCl (Buffered Lidocaine 1%) 3 ml STK-MED ONCE .ROUTE ; Start 08/03/19 at 13:16; Stop 08/03/19 at 13:16; Status DC Lidocaine HCl (Buffered Lidocaine 1%) 6 ml 1X ONCE INJ Last administered on 08/03/19at 13:45; Start 08/03/19 at 13:30; Stop 08/03/19 at 13:31; Status DC Albumin Human 100 ml @ 100 mls/hr 1X ONCE IV Last administered on 08/03/19at 15:41; Start 08/03/19 at 15:00; Stop 08/03/19 at 15:59; Status DC Albumin Human 50 ml @ 50 mls/hr 1X ONCE IV Last administered on 08/03/19at 15:00; Start 08/03/19 at 15:00; Stop 08/03/19 at 15:59; Status DC Active Scripts Active Reported Bisoprolol Fumarate 5 Mg Tablet 10 Mg PO DAILY Vitals/I & O Vital Sign - Last 24 Hours 08/03/19 08/03/19 08/03/19 08/03/19 08:46 09:00 10:00 10:06 Pulse 88 88 Resp 23 19 26 B/P (MAP) 154/81 (105) 114/63 (80) Pulse Ox 99 99 100 100 O2 Delivery Ventilator Ventilator Ventilator Ventilator 08/03/19 08/03/19 08/03/19 08/03/19 11:00 11:36 12:00 12:00 Temp 99.5 99.5 Pulse 81 84 Resp 21 22 B/P (MAP) 133/77 (95) 137/74 (95) Pulse Ox 99 100 98 O2 Delivery Ventilator Ventilator Ventilator Mechanical Ventilator 08/03/19 08/03/19 08/03/19 08/03/19 12:50 13:00 14:00 14:20 Pulse 88 82 Resp 23 18 20 B/P (MAP) 147/84 (105) 140/85 (103) Pulse Ox 100 99 99 99 O2 Delivery Ventilator Ventilator Ventilator Ventilator 08/03/19 08/03/19 08/03/19 08/03/19 15:00 15:00 15:15 16:00 Pulse 76 Resp 16 18 B/P (MAP) 100/54 (69) Pulse Ox 99 97 100 O2 Delivery Ventilator Ventilator Mechanical Ventilator 08/03/19 08/03/19 08/03/19 08/03/19 16:00 17:00 18:00 19:00 Temp 99.2 99.2 Pulse 78 76 77 88 Resp 20 19 23 18 B/P (MAP) 138/75 (96) 108/70 (83) 114/75 (88) 124/75 (91) Pulse Ox 98 100 100 100 O2 Delivery Ventilator Ventilator Ventilator Ventilator 08/03/19 08/03/19 08/03/19 08/03/19 20:00 20:00 20:50 21:00 Temp 99.1 99.1 Pulse 76 79 Resp 19 19 B/P (MAP) 122/66 (84) 133/80 (97) Pulse Ox 100 100 100 O2 Delivery Mechanical Ventilator Ventilator Ventilator Ventilator 08/03/19 08/03/19 08/03/19 08/03/19 21:18 21:48 22:00 23:00 Pulse 77 77 Resp 18 18 18 22 B/P (MAP) 112/64 (80) 111/64 (80) Pulse Ox 100 100 100 100 O2 Delivery Ventilator Ventilator Ventilator Ventilator 08/03/19 08/04/19 08/04/19 08/04/19 23:43 00:00 00:00 01:00 Temp 100.0 100.0 Pulse 86 91 Resp 25 21 B/P (MAP) 163/90 (114) 160/89 (112) Pulse Ox 100 100 99 O2 Delivery Ventilator Ventilator Mechanical Ventilator Ventilator 08/04/19 08/04/19 08/04/19 08/04/19 02:00 03:00 03:26 04:00 Pulse 89 81 Resp 19 23 18 B/P (MAP) 159/93 (115) 112/70 (84) Pulse Ox 99 100 100 O2 Delivery Ventilator Ventilator Ventilator Mechanical Ventilator 08/04/19 08/04/19 08/04/19 08/04/19 04:00 04:00 05:00 06:00 Temp 99.8 99.8 Pulse 81 78 105 Resp 18 20 26 B/P (MAP) 116/69 (85) 112/75 (87) 168/91 (116) Pulse Ox 99 99 100 100 O2 Delivery Ventilator Ventilator Ventilator Ventilator Intake and Output 08/03/19 08/03/19 08/04/19 15:00 23:00 07:00 Intake Total 300 ml 1419.54 ml 1253 ml Output Total 4575 ml 290 ml 755 ml Balance -4275 ml 1129.54 ml 498 ml Hemodynamically unstable?: No Is patient in severe pain?: No Is NPO status required?: No DAVIN LANDEROS MD Aug 04, 2019 08:17
[2019-08-04 08:54] LABS: BASE EXCESS ABG -1 mmol/L (-3-3); CORRECTED PCO2 ABG 35 mmHg; CORRECTED PH ABG 7.43; CORRECTED PO2 ABG 114 mmHg; HCO3 ABG 22 mmol/L (21-28); PCO2 ABG 33 mmHg (35-46); PO2 ABG 103 mmHg (75-108); SAT O2 ABG 97 % (92-99)
[2019-08-04] MEDS: PANTOPRAZOLE IV PUSH 40 MG VIAL. IVP SCH (08:54)
[2019-08-04 09:00] LABS: FIO2 ABG 35% VENT
[2019-08-04] MEDS: HEPARIN for SUB-Q USE 5,000 UNIT/ML VIAL. SQ SCH ×2 (09:00→21:10)
--- NOTE | 2019-08-04 09:19 | PDOC ---
PULMONARY PROGRESS NOTES Subjective Patient intubated on 07/10 , s/p trach AC mode awake and alert today, S/P paracentisis with 4 liters removed on 08/03/19 Vitals Vital Signs Date Time Temp Pulse Resp B/P (MAP) Pulse Ox O2 Delivery O2 Flow Rate FiO2 08/04/19 07:57 99 Ventilator 08/04/19 06:00 105 26 168/91 (116) 08/04/19 04:00 99.8 99.8 Lungs: Other (dimished in BLL) Cardiovascular: S1, S2 Abdomen: Non-tender, Other (distended) Extremities: Other (+3 generalized edema ) Skin: Warm, Dry Labs Laboratory Tests Test 08/02/19 14:37 08/02/19 17:27 08/02/19 23:34 08/03/19 05:41 Glucose (Fingerstick) 153 mg/dL (70-99) 205 mg/dL (70-99) 167 mg/dL (70-99) 130 mg/dL (70-99) Test 08/03/19 05:45 08/03/19 11:57 08/03/19 12:35 08/03/19 23:48 White Blood Count 5.8 x10^3/uL (4.0-11.0) Red Blood Count 2.61 x10^6/uL (3.50-5.40) Hemoglobin 8.2 g/dL (12.0-15.5) Hematocrit 25.2 % (36.0-47.0) Mean Corpuscular Volume 97 fL (79-100) Mean Corpuscular Hemoglobin 32 pg (25-35) Mean Corpuscular Hemoglobin Concent 33 g/dL (31-37) Red Cell Distribution Width 18.6 % (11.5-14.5) Platelet Count 433 x10^3/uL (140-400) Neutrophils (%) (Auto) 70 % (31-73) Lymphocytes (%) (Auto) 16 % (24-48) Monocytes (%) (Auto) 13 % (0-9) Eosinophils (%) (Auto) 1 % (0-3) Basophils (%) (Auto) 0 % (0-3) Neutrophils # (Auto) 4.0 x10^3/uL (1.8-7.7) Lymphocytes # (Auto) 0.9 x10^3/uL (1.0-4.8) Monocytes # (Auto) 0.8 x10^3/uL (0.0-1.1) Eosinophils # (Auto) 0.0 x10^3/uL (0.0-0.7) Basophils # (Auto) 0.0 x10^3/uL (0.0-0.2) Sodium Level 138 mmol/L (136-145) Potassium Level 3.9 mmol/L (3.5-5.1) Chloride Level 101 mmol/L (98-107) Carbon Dioxide Level 29 mmol/L (21-32) Anion Gap 8 (6-14) Blood Urea Nitrogen 59 mg/dL (7-20) Creatinine 1.5 mg/dL (0.6-1.0) Estimated GFR (Cockcroft-Gault) 36.9 BUN/Creatinine Ratio 39 (6-20) Glucose Level 139 mg/dL (70-99) Calcium Level 8.9 mg/dL (8.5-10.1) Phosphorus Level 3.9 mg/dL (2.6-4.7) Magnesium Level 2.0 mg/dL (1.8-2.4) Total Bilirubin 0.6 mg/dL (0.2-1.0) Aspartate Amino Transf (AST/SGOT) 31 U/L (15-37) Alanine Aminotransferase (ALT/SGPT) 16 U/L (14-59) Alkaline Phosphatase 72 U/L (46-116) Total Protein 6.1 g/dL (6.4-8.2) Albumin 3.1 g/dL (3.4-5.0) Albumin/Globulin Ratio 1.0 (1.0-1.7) Hepatitis B Surface Antigen Nonreactive (Nonreactive) Glucose (Fingerstick) 164 mg/dL (70-99) 158 mg/dL (70-99) Prothrombin Time 15.6 SEC (11.7-14.0) Prothromb Time International Ratio 1.3 (0.8-1.1) Test 08/04/19 06:15 08/04/19 06:18 08/04/19 08:00 Sodium Level 139 mmol/L (136-145) Potassium Level 3.9 mmol/L (3.5-5.1) Chloride Level 102 mmol/L (98-107) Carbon Dioxide Level 25 mmol/L (21-32) Anion Gap 12 (6-14) Blood Urea Nitrogen 88 mg/dL (7-20) Creatinine 1.8 mg/dL (0.6-1.0) Estimated GFR (Cockcroft-Gault) 29.9 Glucose Level 120 mg/dL (70-99) Calcium Level 9.1 mg/dL (8.5-10.1) Phosphorus Level 5.1 mg/dL (2.6-4.7) Magnesium Level 2.0 mg/dL (1.8-2.4) Glucose (Fingerstick) 106 mg/dL (70-99) O2 Saturation 97 % (92-99) Arterial Blood pH 7.45 (7.35-7.45) Arterial Blood pH (Temp corrected) 7.43 Arterial Blood pCO2 at Patient Temp 33 mmHg (35-46) Arterial Blood pCO2 (Temp correct) 35 mmHg Arterial Blood pO2 at Patient Temp 103 mmHg (75-108) Arterial Blood pO2 (Temp corrected) 114 mmHg Arterial Blood HCO3 22 mmol/L (21-28) Arterial Blood Base Excess -1 mmol/L (-3-3) FiO2 35% vent Laboratory Tests Test 08/03/19 11:57 08/03/19 12:35 08/03/19 23:48 08/04/19 06:15 Glucose (Fingerstick) 164 mg/dL (70-99) 158 mg/dL (70-99) Prothrombin Time 15.6 SEC (11.7-14.0) Prothromb Time International Ratio 1.3 (0.8-1.1) Sodium Level 139 mmol/L (136-145) Potassium Level 3.9 mmol/L (3.5-5.1) Chloride Level 102 mmol/L (98-107) Carbon Dioxide Level 25 mmol/L (21-32) Anion Gap 12 (6-14) Blood Urea Nitrogen 88 mg/dL (7-20) Creatinine 1.8 mg/dL (0.6-1.0) Estimated GFR (Cockcroft-Gault) 29.9 Glucose Level 120 mg/dL (70-99) Calcium Level 9.1 mg/dL (8.5-10.1) Phosphorus Level 5.1 mg/dL (2.6-4.7) Magnesium Level 2.0 mg/dL (1.8-2.4) Test 08/04/19 06:18 08/04/19 08:00 Glucose (Fingerstick) 106 mg/dL (70-99) O2 Saturation 97 % (92-99) Arterial Blood pH 7.45 (7.35-7.45) Arterial Blood pH (Temp corrected) 7.43 Arterial Blood pCO2 at Patient Temp 33 mmHg (35-46) Arterial Blood pCO2 (Temp correct) 35 mmHg Arterial Blood pO2 at Patient Temp 103 mmHg (75-108) Arterial Blood pO2 (Temp corrected) 114 mmHg Arterial Blood HCO3 22 mmol/L (21-28) Arterial Blood Base Excess -1 mmol/L (-3-3) FiO2 35% vent Medications Active Scripts Medications Dose Route/Sig Max Daily Dose Days Date Category Bisoprolol Fumarate 5 Mg Tablet 10 Mg PO DAILY 07/04/19 Reported Comments Chest x-ray reviewed 08/01 IMPRESSION: 1. moderate pleural effusions with associated atelectasis ct chest 08/01 moderate effusions Impression . IMPRESSION: 1. Acute hypoxemic respiratory failure secondary to ARDS status post trach, 2. Gallstone pancreatitis.with NECROSIS, NOT A SURGICAL CANDIDATE 3. Severe metabolic acidosis.stable 4. Acute kidney injury-stable, ON HD 5. Acute gallstone pancreatitis. 6. Hypoalbuminemia. 7. Moderate persistent effusions 8. Fever,improved, lines changed 9. Chronic anemia 10. Covid 19 testing negative 11. Moderate to large ascites-S/P paracentisis 1 Plan . Cont. ventilatory support, ABD reviewed 35%/PEEP 5 D/C fentanyl and plan for CPAP trial after HD Place back on A/C mod at HS Follow surgery recs Follow ID rec Follow nephrology recs Tolerated paracentesis well removed 4 liters on . continue TPN for nutrition DVT/GI PPX d/w RN/RT CC time : 30 minutes reviewing labs, patient care and discussing will care team VINAYAK LANDRUM MD Aug 04, 2019 09:19
--- NOTE | 2019-08-04 09:29 | PDOC ---
Objective: Objective: D/w nurse. Vital Signs: Vital Signs Date Time Temp Pulse Resp B/P (MAP) Pulse Ox O2 Delivery O2 Flow Rate FiO2 08/04/19 07:57 99 Ventilator 08/04/19 06:00 105 26 168/91 (116) 08/04/19 04:00 99.8 99.8 Labs: Laboratory Tests Test 08/03/19 11:57 08/03/19 12:35 08/03/19 23:48 08/04/19 06:15 Glucose (Fingerstick) 164 mg/dL 158 mg/dL Prothrombin Time 15.6 SEC Prothromb Time International Ratio 1.3 Sodium Level 139 mmol/L Potassium Level 3.9 mmol/L Chloride Level 102 mmol/L Carbon Dioxide Level 25 mmol/L Anion Gap 12 Blood Urea Nitrogen 88 mg/dL Creatinine 1.8 mg/dL Estimated GFR (Cockcroft-Gault) 29.9 Glucose Level 120 mg/dL Calcium Level 9.1 mg/dL Phosphorus Level 5.1 mg/dL Magnesium Level 2.0 mg/dL Test 08/04/19 06:18 08/04/19 08:00 Glucose (Fingerstick) 106 mg/dL O2 Saturation 97 % Arterial Blood pH 7.45 Arterial Blood pH (Temp corrected) 7.43 Arterial Blood pCO2 at Patient Temp 33 mmHg Arterial Blood pCO2 (Temp correct) 35 mmHg Arterial Blood pO2 at Patient Temp 103 mmHg Arterial Blood pO2 (Temp corrected) 114 mmHg Arterial Blood HCO3 22 mmol/L Arterial Blood Base Excess -1 mmol/L FiO2 35% vent Imaging: Paracentesis 08/02 4300 cc of thin, light brown fluid was removed PE: GEN: NAD LUNGS: trach, RTs present HEART: tachycardic ABD: less distended NEURO/PSYCH: anxious, touching trach A/P: Gallstone pancreatitis, MOSF -- Continue support per GI. Hemodynamically unstable?: No Is patient in severe pain?: No Is NPO status required?: No CYNDEE FALCON Aug 04, 2019 09:29
--- NOTE | 2019-08-04 09:51 | NUR ---
Permits signed at this time and charted 0800 /call from prestressed concrete laborer, Will grain picker in approx 15 min for OR. Conversation w . Aware she will see him to procedure/ speak ida LEIJA then leave after conversation. To prestressed concrete laborer [id number] per bed. Addendum: 08/04/19 at 1006 by Harika Owens RN disregard above... WRONG PATIENT S Roman LE
--- NOTE | 2019-08-04 10:07 | NUR ---
[id number] AM meds on hold,dialysis nurse Lizzy preparing for run. RT in to assist transport-116 for dialysis. Patient "anxious" today. More aware as reported by others who have taken care of her past weeks. Short term memory noted . Reinforcement an hourly basis of events and POC while she has been hospitalized hospital
[2019-08-04 10:14] LABS: BASO % 1 % (0-3); EOS % 0 % (0-3); HEMATOCRIT 26.5 % (36.0-47.0); HEMOGLOBIN 8.9 g/dL (12.0-15.5); LYMPH % 21 % (24-48); MEAN CORPUSCULAR HEMOGLOBIN 32 pg (25-35); MEAN CORPUSCULAR HGB CONC 33 g/dL (31-37); MEAN CORPUSCULAR VOLUME 96 fL (79-100); MONO # 1.1 x10^3/uL (0.0-1.1); MONO % 12 % (0-9); NEUT # 6.1 x10^3/uL (1.8-7.7); NEUT % 66 % (31-73); PLATELET COUNT 530 x10^3/uL (140-400); RED BLOOD COUNT 2.76 x10^6/uL (3.50-5.40); RED CELL DISTRIBUTION WIDTH 18.9 % (11.5-14.5); WHITE BLOOD COUNT 9.2 x10^3/uL (4.0-11.0)
--- NOTE | 2019-08-04 10:54 | PDOC ---
SURGICAL PROGRESS NOTE Subjective seen in dialysis trying to communicate--frustrated with difficulty Vital Signs Vital Signs Date Time Temp Pulse Resp B/P (MAP) Pulse Ox O2 Delivery O2 Flow Rate FiO2 08/04/19 07:57 99 Ventilator 08/04/19 06:00 105 26 168/91 (116) 08/04/19 04:00 99.8 99.8 I&O Intake and Output 08/04/19 07:00 Intake Total 2972.54 ml Output Total 5620 ml Balance -2647.46 ml Intake Oral 0 ml IV Total 2972.54 ml Output Urine Total 920 ml Stool Total 0 ml Gastric Drainage Total 400 ml Drainage Total 4300 ml General: Alert, Cooperative HEENT: Other (trach intact) Abdomen: Soft, Other (distended ) Labs Laboratory Tests Test 08/02/19 14:37 08/02/19 17:27 08/02/19 23:34 08/03/19 05:41 Glucose (Fingerstick) 153 mg/dL (70-99) 205 mg/dL (70-99) 167 mg/dL (70-99) 130 mg/dL (70-99) Test 08/03/19 05:45 08/03/19 11:57 08/03/19 12:35 08/03/19 23:48 White Blood Count 5.8 x10^3/uL (4.0-11.0) Red Blood Count 2.61 x10^6/uL (3.50-5.40) Hemoglobin 8.2 g/dL (12.0-15.5) Hematocrit 25.2 % (36.0-47.0) Mean Corpuscular Volume 97 fL (79-100) Mean Corpuscular Hemoglobin 32 pg (25-35) Mean Corpuscular Hemoglobin Concent 33 g/dL (31-37) Red Cell Distribution Width 18.6 % (11.5-14.5) Platelet Count 433 x10^3/uL (140-400) Neutrophils (%) (Auto) 70 % (31-73) Lymphocytes (%) (Auto) 16 % (24-48) Monocytes (%) (Auto) 13 % (0-9) Eosinophils (%) (Auto) 1 % (0-3) Basophils (%) (Auto) 0 % (0-3) Neutrophils # (Auto) 4.0 x10^3/uL (1.8-7.7) Lymphocytes # (Auto) 0.9 x10^3/uL (1.0-4.8) Monocytes # (Auto) 0.8 x10^3/uL (0.0-1.1) Eosinophils # (Auto) 0.0 x10^3/uL (0.0-0.7) Basophils # (Auto) 0.0 x10^3/uL (0.0-0.2) Sodium Level 138 mmol/L (136-145) Potassium Level 3.9 mmol/L (3.5-5.1) Chloride Level 101 mmol/L (98-107) Carbon Dioxide Level 29 mmol/L (21-32) Anion Gap 8 (6-14) Blood Urea Nitrogen 59 mg/dL (7-20) Creatinine 1.5 mg/dL (0.6-1.0) Estimated GFR (Cockcroft-Gault) 36.9 BUN/Creatinine Ratio 39 (6-20) Glucose Level 139 mg/dL (70-99) Calcium Level 8.9 mg/dL (8.5-10.1) Phosphorus Level 3.9 mg/dL (2.6-4.7) Magnesium Level 2.0 mg/dL (1.8-2.4) Total Bilirubin 0.6 mg/dL (0.2-1.0) Aspartate Amino Transf (AST/SGOT) 31 U/L (15-37) Alanine Aminotransferase (ALT/SGPT) 16 U/L (14-59) Alkaline Phosphatase 72 U/L (46-116) Total Protein 6.1 g/dL (6.4-8.2) Albumin 3.1 g/dL (3.4-5.0) Albumin/Globulin Ratio 1.0 (1.0-1.7) Hepatitis B Surface Antigen Nonreactive (Nonreactive) Glucose (Fingerstick) 164 mg/dL (70-99) 158 mg/dL (70-99) Prothrombin Time 15.6 SEC (11.7-14.0) Prothromb Time International Ratio 1.3 (0.8-1.1) Test 08/04/19 06:15 08/04/19 06:18 08/04/19 08:00 08/04/19 10:00 Sodium Level 139 mmol/L (136-145) Potassium Level 3.9 mmol/L (3.5-5.1) Chloride Level 102 mmol/L (98-107) Carbon Dioxide Level 25 mmol/L (21-32) Anion Gap 12 (6-14) Blood Urea Nitrogen 88 mg/dL (7-20) Creatinine 1.8 mg/dL (0.6-1.0) Estimated GFR (Cockcroft-Gault) 29.9 Glucose Level 120 mg/dL (70-99) Calcium Level 9.1 mg/dL (8.5-10.1) Phosphorus Level 5.1 mg/dL (2.6-4.7) Magnesium Level 2.0 mg/dL (1.8-2.4) Glucose (Fingerstick) 106 mg/dL (70-99) O2 Saturation 97 % (92-99) Arterial Blood pH 7.45 (7.35-7.45) Arterial Blood pH (Temp corrected) 7.43 Arterial Blood pCO2 at Patient Temp 33 mmHg (35-46) Arterial Blood pCO2 (Temp correct) 35 mmHg Arterial Blood pO2 at Patient Temp 103 mmHg (75-108) Arterial Blood pO2 (Temp corrected) 114 mmHg Arterial Blood HCO3 22 mmol/L (21-28) Arterial Blood Base Excess -1 mmol/L (-3-3) FiO2 35% vent White Blood Count 9.2 x10^3/uL (4.0-11.0) Red Blood Count 2.76 x10^6/uL (3.50-5.40) Hemoglobin 8.9 g/dL (12.0-15.5) Hematocrit 26.5 % (36.0-47.0) Mean Corpuscular Volume 96 fL (79-100) Mean Corpuscular Hemoglobin 32 pg (25-35) Mean Corpuscular Hemoglobin Concent 33 g/dL (31-37) Red Cell Distribution Width 18.9 % (11.5-14.5) Platelet Count 530 x10^3/uL (140-400) Neutrophils (%) (Auto) 66 % (31-73) Lymphocytes (%) (Auto) 21 % (24-48) Monocytes (%) (Auto) 12 % (0-9) Eosinophils (%) (Auto) 0 % (0-3) Basophils (%) (Auto) 1 % (0-3) Neutrophils # (Auto) 6.1 x10^3/uL (1.8-7.7) Lymphocytes # (Auto) 2.0 x10^3/uL (1.0-4.8) Monocytes # (Auto) 1.1 x10^3/uL (0.0-1.1) Eosinophils # (Auto) 0.0 x10^3/uL (0.0-0.7) Basophils # (Auto) 0.0 x10^3/uL (0.0-0.2) Laboratory Tests Test 08/03/19 11:57 08/03/19 12:35 08/03/19 23:48 08/04/19 06:15 Glucose (Fingerstick) 164 mg/dL (70-99) 158 mg/dL (70-99) Prothrombin Time 15.6 SEC (11.7-14.0) Prothromb Time International Ratio 1.3 (0.8-1.1) Sodium Level 139 mmol/L (136-145) Potassium Level 3.9 mmol/L (3.5-5.1) Chloride Level 102 mmol/L (98-107) Carbon Dioxide Level 25 mmol/L (21-32) Anion Gap 12 (6-14) Blood Urea Nitrogen 88 mg/dL (7-20) Creatinine 1.8 mg/dL (0.6-1.0) Estimated GFR (Cockcroft-Gault) 29.9 Glucose Level 120 mg/dL (70-99) Calcium Level 9.1 mg/dL (8.5-10.1) Phosphorus Level 5.1 mg/dL (2.6-4.7) Magnesium Level 2.0 mg/dL (1.8-2.4) Test 08/04/19 06:18 08/04/19 08:00 08/04/19 10:00 Glucose (Fingerstick) 106 mg/dL (70-99) O2 Saturation 97 % (92-99) Arterial Blood pH 7.45 (7.35-7.45) Arterial Blood pH (Temp corrected) 7.43 Arterial Blood pCO2 at Patient Temp 33 mmHg (35-46) Arterial Blood pCO2 (Temp correct) 35 mmHg Arterial Blood pO2 at Patient Temp 103 mmHg (75-108) Arterial Blood pO2 (Temp corrected) 114 mmHg Arterial Blood HCO3 22 mmol/L (21-28) Arterial Blood Base Excess -1 mmol/L (-3-3) FiO2 35% vent White Blood Count 9.2 x10^3/uL (4.0-11.0) Red Blood Count 2.76 x10^6/uL (3.50-5.40) Hemoglobin 8.9 g/dL (12.0-15.5) Hematocrit 26.5 % (36.0-47.0) Mean Corpuscular Volume 96 fL (79-100) Mean Corpuscular Hemoglobin 32 pg (25-35) Mean Corpuscular Hemoglobin Concent 33 g/dL (31-37) Red Cell Distribution Width 18.9 % (11.5-14.5) Platelet Count 530 x10^3/uL (140-400) Neutrophils (%) (Auto) 66 % (31-73) Lymphocytes (%) (Auto) 21 % (24-48) Monocytes (%) (Auto) 12 % (0-9) Eosinophils (%) (Auto) 0 % (0-3) Basophils (%) (Auto) 1 % (0-3) Neutrophils # (Auto) 6.1 x10^3/uL (1.8-7.7) Lymphocytes # (Auto) 2.0 x10^3/uL (1.0-4.8) Monocytes # (Auto) 1.1 x10^3/uL (0.0-1.1) Eosinophils # (Auto) 0.0 x10^3/uL (0.0-0.7) Basophils # (Auto) 0.0 x10^3/uL (0.0-0.2) Problem List Problems Medical Problems: (1) Acute pancreatitis Status: Acute (2) Cholelithiasis Status: Acute Assessment/Plan supportive care 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 PHYSICIAN PRACTICE CONSULTANT Aug 04, 2019 10:54
[2019-08-04] MEDS ORDERED: DIALYSIS PATIENT. MC PRN ×2 (11:30)
--- NOTE | 2019-08-04 12:37 | PDOC ---
Renal-Progress Notes Subjective Notes Notes MORE AWAKE History of Present Illness Hx of present illness IMPROVED Vitals Vitals Vital Signs Date Time Temp Pulse Resp B/P (MAP) Pulse Ox O2 Delivery O2 Flow Rate FiO2 08/04/19 11:58 99 Ventilator 08/04/19 06:00 105 26 168/91 (116) 08/04/19 04:00 99.8 99.8 Weight Weight [ ] I.O. Intake and Output Intake and Output 08/04/19 07:00 Intake Total 2972.54 ml Output Total 5620 ml Balance -2647.46 ml Intake Oral 0 ml IV Total 2972.54 ml Output Urine Total 920 ml Stool Total 0 ml Gastric Drainage Total 400 ml Drainage Total 4300 ml Labs Labs Laboratory Tests Test 08/03/19 23:48 08/04/19 06:15 08/04/19 06:18 08/04/19 08:00 Glucose (Fingerstick) 158 mg/dL (70-99) 106 mg/dL (70-99) Sodium Level 139 mmol/L (136-145) Potassium Level 3.9 mmol/L (3.5-5.1) Chloride Level 102 mmol/L (98-107) Carbon Dioxide Level 25 mmol/L (21-32) Anion Gap 12 (6-14) Blood Urea Nitrogen 88 mg/dL (7-20) Creatinine 1.8 mg/dL (0.6-1.0) Estimated GFR (Cockcroft-Gault) 29.9 Glucose Level 120 mg/dL (70-99) Calcium Level 9.1 mg/dL (8.5-10.1) Phosphorus Level 5.1 mg/dL (2.6-4.7) Magnesium Level 2.0 mg/dL (1.8-2.4) O2 Saturation 97 % (92-99) Arterial Blood pH 7.45 (7.35-7.45) Arterial Blood pH (Temp corrected) 7.43 Arterial Blood pCO2 at Patient Temp 33 mmHg (35-46) Arterial Blood pCO2 (Temp correct) 35 mmHg Arterial Blood pO2 at Patient Temp 103 mmHg (75-108) Arterial Blood pO2 (Temp corrected) 114 mmHg Arterial Blood HCO3 22 mmol/L (21-28) Arterial Blood Base Excess -1 mmol/L (-3-3) FiO2 35% vent Test 08/04/19 10:00 White Blood Count 9.2 x10^3/uL (4.0-11.0) Red Blood Count 2.76 x10^6/uL (3.50-5.40) Hemoglobin 8.9 g/dL (12.0-15.5) Hematocrit 26.5 % (36.0-47.0) Mean Corpuscular Volume 96 fL (79-100) Mean Corpuscular Hemoglobin 32 pg (25-35) Mean Corpuscular Hemoglobin Concent 33 g/dL (31-37) Red Cell Distribution Width 18.9 % (11.5-14.5) Platelet Count 530 x10^3/uL (140-400) Neutrophils (%) (Auto) 66 % (31-73) Lymphocytes (%) (Auto) 21 % (24-48) Monocytes (%) (Auto) 12 % (0-9) Eosinophils (%) (Auto) 0 % (0-3) Basophils (%) (Auto) 1 % (0-3) Neutrophils # (Auto) 6.1 x10^3/uL (1.8-7.7) Lymphocytes # (Auto) 2.0 x10^3/uL (1.0-4.8) Monocytes # (Auto) 1.1 x10^3/uL (0.0-1.1) Eosinophils # (Auto) 0.0 x10^3/uL (0.0-0.7) Basophils # (Auto) 0.0 x10^3/uL (0.0-0.2) Micro Micro Microbiology 08/02/19 Blood Culture - Preliminary, Resulted NO GROWTH AFTER 1 DAY 07/31/19 Urine Culture - Final, Complete 07/31/19 Urine Culture Result 1 (ALEXANDRA) - Final, Complete Review of Systems Constitutional: yes: other (ON THE VENT) Physical Exam General Appearance: other (ON THE VENT) Skin: warm Respiratory: decreased breath sounds Heart: S1S2 Abdomen: soft, bowel sounds present Genitourinary: bladder flat Extremities: pulses present, edema Neurology: other (SEDATED) Assessment Assessment IMP [id number]- ANEMIA LEUCOCYTOSIS-IMPROVING ANASARCA DUE TO 3RD SPACING HYPERKALEMIA-RESOLVED ACIDOSIS AND ACIDEMIA-CONTROLLED ACUTE REPS FAILURE ACUTE PANCREATITIS HYPOALBUMINEMIA HYPOCALCEMIA-FROM SAPONIFICATION-BETTER POOR HD CATHETER FUNCTION PLAN HD TODAY UF TO DW AND CHALLENGE SPA PRIOR TO TX TPN TO CONTINUE NEEDED PRBC NEEDED CONT HIRAM VENT SUPPORT ANTIBIOTICS WILL FOLLOW DONI GARCIA MD Aug 04, 2019 12:37
--- NOTE | 2019-08-04 12:47 | NUR ---
1247 Remains in dialysis. Line issues being managed at this time. Necessary meds ordered and sent to 116 (sedation/antianxiety meds ) for use as needed.
[2019-08-04] MEDS: TPN PER PHARMACY MC PRN (13:19)
--- NOTE | 2019-08-04 13:21 | NUR ---
Pharmacy TPN Dosing Note S: SCOTT AVILA is a 48 year old F Currently receiving Central Continuous TPN started 07/06/19 B:Pertinent PMH: Necrotizing pancreatitis Height: 5 feet, 8 inches Weight: 105 kg Current diet: NPO LABS: Sodium: 139 Potassium: 3.9 Chloride: 102 Calcium: 9.1 Corrected Calcium: 9.82 Magnesium: 2 CO2: 25 SCr: 1.8 Glucose: 106-158 Albumin: 3.1 AST: 31 ALT: 16 TPN FORMULA: TPN TYPE: Central Continuous AMINO ACIDS: 125 gm DEXTROSE: 225 gm LIPIDS: 20 gm SODIUM CHLORIDE: 100 mEq POTASSIUM CHLORIDE: 20 mEq POTASSIUM PHOSPHATE: 10 mmol MAGNESIUM: 12 mEq CALCIUM: 15 mEq INSULIN: 35 units MULTIPLE VITAMIN: 10 ml TRACE ELEMENTS: 0.5 ml(s) TPN PLAN: Potassium phos and insulin reduced in TPN per labs. R: Change TPN per plan and ordered formula Will monitor electrolytes, glucose, and tolerance to TPN. Raeann Mcdonnell [facility], 08/04/19 [id number]
--- NOTE | 2019-08-04 14:12 | NUR ---
SS following up with discharge planning. SS reviewed pt chart and discussed with pt RN. Pt remains on the vent and trached. Pt has TPN and hemodialysis. SS left voicemail for [facility] in [facility], , for update on Medicaid application. SS will continue to follow for discharge planning.
[2019-08-04] MEDS: MICAFUNGIN 100 MG in IV DEXTROSE 5% 100ML 100 ML IV SCH (15:08)
[2019-08-04] MEDS: MEROPENEM 500 MG in IV NORMAL SALINE 50ML 50 ML IV SCH ×2 (15:41→23:04)
[2019-08-04] MEDS: ONDANSETRON PF 4 MG/2 ML VIAL. IV PRN ×2 (19:40)
[2019-08-04] MEDS: ACETAMINOPHEN 650 MG/20.3 ML SOLUTION. PEG PRN (19:56)
[2019-08-04] MEDS ORDERED: AMINO ACID IV SCH ×11 (22:00)
[2019-08-04] MEDS ORDERED: [UNRECOGNIZED DRUG - OTHER] IV SCH ×11 (22:00)
[2019-08-04] MEDS ORDERED: DEXTROSE 70% IV SCH ×11 (22:00)
[2019-08-04] MEDS ORDERED: TOTAL PARENTERAL NUTRITION IV SCH ×11 (22:00)
[2019-08-05] VITALS (24 sets, daily range): BP systolic 102–202; BP diastolic 59–111
[2019-08-05] MEDS: DEXMEDETOMIDINE 400 MCG in IV NORMAL SALINE 100ML 96 ML IV PRN ×6 (01:20→21:01)
[2019-08-05] MEDS: ONDANSETRON PF 4 MG/2 ML VIAL. IV PRN ×3 (03:51→18:01)
[2019-08-05] MEDS: INSULIN LISPRO 300 UNITS/3 ML VIAL. SQ SCH ×3 (06:00→17:09)
[2019-08-05 06:59] LABS: ALBUMIN 2.6 g/dL (3.4-5.0); ALBUMIN/GLOBULIN RATIO 1.1 (1.0-1.7); CALCIUM 8.4 mg/dL (8.5-10.1); CREATININE 1.6 mg/dL (0.6-1.0); GFR 34.3; PHOSPHORUS 5.2 mg/dL (2.6-4.7); POTASSIUM 3.7 mmol/L (3.5-5.1); TOTAL BILIRUBIN 0.4 mg/dL (0.2-1.0); TOTAL PROTEIN 4.9 g/dL (6.4-8.2)
[2019-08-05 07:06] LABS: BASO % 1 % (0-3); EOS % 1 % (0-3); HEMATOCRIT 22.8 % (36.0-47.0); HEMOGLOBIN 7.6 g/dL (12.0-15.5); LYMPH % 17 % (24-48); MEAN CORPUSCULAR HEMOGLOBIN 32 pg (25-35); MEAN CORPUSCULAR HGB CONC 33 g/dL (31-37); MEAN CORPUSCULAR VOLUME 95 fL (79-100); MONO # 0.8 x10^3/uL (0.0-1.1); MONO % 14 % (0-9); NEUT # 3.9 x10^3/uL (1.8-7.7); NEUT % 67 % (31-73); PLATELET COUNT 498 x10^3/uL (140-400); RED CELL DISTRIBUTION WIDTH 18.4 % (11.5-14.5); WHITE BLOOD COUNT 5.8 x10^3/uL (4.0-11.0)
--- NOTE | 2019-08-05 08:30 | PDOC ---
Infectious Disease Note Subjective Subjective Alert and some better Mild nausea and some discomfort Trach, vent FiO2 35 % PEEP 5 TPN ROS ROS difficult to really obtain Vital Sign Vital Signs Vital Signs Date Time Temp Pulse Resp B/P (MAP) Pulse Ox O2 Delivery O2 Flow Rate FiO2 08/05/19 06:00 80 18 174/82 (112) 100 Ventilator 08/05/19 04:00 98.1 98.1 Physical Exam PHYSICAL EXAM GENERAL: Alert and coop. mouthing words Appears comfortable has generalized anasarca - s/p suctioning with RT. Feels warm HEENT: Pupils equal, + NGT, oral cavity dry NECK: Trach/vent LUNGS: Diminished aeration HEART: S1, S2, regular ABDOMEN: Less Distended, hypoactive BS, : Louis changed 08/01 EXTREMITIES: Generalized edema, no cyanosis, SCDs bilaterally DERMATOLOGIC: Warm and dry. No generalized rash. CENTRAL NERVOUS SYSTEM: Responsive and seems appropriate HDC, LIJ (08/01) and RUE-PICC removed 08/01 Labs Lab Laboratory Tests Test 08/04/19 10:00 08/04/19 19:31 08/04/19 23:53 08/05/19 06:00 White Blood Count 9.2 x10^3/uL (4.0-11.0) Red Blood Count 2.76 x10^6/uL (3.50-5.40) Hemoglobin 8.9 g/dL (12.0-15.5) Hematocrit 26.5 % (36.0-47.0) Mean Corpuscular Volume 96 fL (79-100) Mean Corpuscular Hemoglobin 32 pg (25-35) Mean Corpuscular Hemoglobin Concent 33 g/dL (31-37) Red Cell Distribution Width 18.9 % (11.5-14.5) Platelet Count 530 x10^3/uL (140-400) Neutrophils (%) (Auto) 66 % (31-73) Lymphocytes (%) (Auto) 21 % (24-48) Monocytes (%) (Auto) 12 % (0-9) Eosinophils (%) (Auto) 0 % (0-3) Basophils (%) (Auto) 1 % (0-3) Neutrophils # (Auto) 6.1 x10^3/uL (1.8-7.7) Lymphocytes # (Auto) 2.0 x10^3/uL (1.0-4.8) Monocytes # (Auto) 1.1 x10^3/uL (0.0-1.1) Eosinophils # (Auto) 0.0 x10^3/uL (0.0-0.7) Basophils # (Auto) 0.0 x10^3/uL (0.0-0.2) Glucose (Fingerstick) 142 mg/dL (70-99) 145 mg/dL (70-99) Sodium Level 140 mmol/L (136-145) Potassium Level 3.7 mmol/L (3.5-5.1) Chloride Level 103 mmol/L (98-107) Carbon Dioxide Level 26 mmol/L (21-32) Anion Gap 11 (6-14) Blood Urea Nitrogen 80 mg/dL (7-20) Creatinine 1.6 mg/dL (0.6-1.0) Estimated GFR (Cockcroft-Gault) 34.3 BUN/Creatinine Ratio 50 (6-20) Glucose Level 130 mg/dL (70-99) Calcium Level 8.4 mg/dL (8.5-10.1) Phosphorus Level 5.2 mg/dL (2.6-4.7) Total Bilirubin 0.4 mg/dL (0.2-1.0) Aspartate Amino Transf (AST/SGOT) 23 U/L (15-37) Alanine Aminotransferase (ALT/SGPT) 12 U/L (14-59) Alkaline Phosphatase 52 U/L (46-116) Total Protein 4.9 g/dL (6.4-8.2) Albumin 2.6 g/dL (3.4-5.0) Albumin/Globulin Ratio 1.1 (1.0-1.7) Test 08/05/19 06:06 08/05/19 07:00 Glucose (Fingerstick) 129 mg/dL (70-99) White Blood Count 5.8 x10^3/uL (4.0-11.0) Red Blood Count 2.40 x10^6/uL (3.50-5.40) Hemoglobin 7.6 g/dL (12.0-15.5) Hematocrit 22.8 % (36.0-47.0) Mean Corpuscular Volume 95 fL (79-100) Mean Corpuscular Hemoglobin 32 pg (25-35) Mean Corpuscular Hemoglobin Concent 33 g/dL (31-37) Red Cell Distribution Width 18.4 % (11.5-14.5) Platelet Count 498 x10^3/uL (140-400) Neutrophils (%) (Auto) 67 % (31-73) Lymphocytes (%) (Auto) 17 % (24-48) Monocytes (%) (Auto) 14 % (0-9) Eosinophils (%) (Auto) 1 % (0-3) Basophils (%) (Auto) 1 % (0-3) Neutrophils # (Auto) 3.9 x10^3/uL (1.8-7.7) Lymphocytes # (Auto) 1.0 x10^3/uL (1.0-4.8) Monocytes # (Auto) 0.8 x10^3/uL (0.0-1.1) Eosinophils # (Auto) 0.0 x10^3/uL (0.0-0.7) Basophils # (Auto) 0.0 x10^3/uL (0.0-0.2) Micro CT Chest Abd/pelv 08/01 CT CHEST: CT scan the chest was done without contrast. There is a tracheostomy tube in good position. There are large bilateral pleural effusions. There is atelectasis in both lung bases. There is no mediastinal adenopathy. Right arm PICC line extends to the superior vena cava. There is a temporary dialysis catheter extending to the vena cava near the atrium. IMPRESSION: 1. Large bilateral effusions. 2. Atelectasis of both lungs. End impression CT abdomen pelvis CT scan the abdomen pelvis was done following CT chest with contrast. NG tube extends into the stomach. Spleen is normal. There is no mass or hydronephrosis in the kidneys. There is a gallstone the gallbladder. A focal liver lesion is not identified. There is diffuse necrosis of the pancreas. There is peripancreatic fluid. The pattern is similar to the recent study. There is fluid in the paracolic gutters. There is retroperitoneal fluid surrounding the kidneys. Ascites extends into the pelvis. Ascites is similar to the prior study. There is no bowel obstruction. There is no free air. IMPRESSION: 1. Diffuse pancreatic necrosis. 2. A extensive retroperitoneal fluid and inflammation. 3. Cholelithiasis. 4. Moderate to large volume ascites with little change. CT A/P, 07/27 IMPRESSION: 1. Increased ascites. 2. 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 Cholelithiasis with thickening of the gallbladder wall. 4. Persistent pleural effusions and atelectasis in the lung bases. Objective Assessment Leukocytosis 07/28 -improved Fever - - better - ? pancreatitis. blood cults 07/28 neg.Urine - neg, New L IJ/ Louis and PICC removed 08/01 S/p Paracentesis 08/02 - 4300 ml Severe acute gallstone pancreatitis with necrosis -CT 08/01 necrotizing pancreatitis with fluid and phlegmon at the pancreas Ascites Hypotension off levaphed Joseph Pleural effusions JUANA requiring HD - s/p RIJ temporary dialysis catheter replacement, 07/20 Vent dependent respiratory failure -s/p Trach placement -lung opacities, COVID-19 neg Anasarca - worse Anemia - S/p PRBC 07/13 Hypocalcemia Prediabetes HTN Diarrhea, C. diff neg 07/10 Anemia - S/p PRBCs Plan Plan of Care labs this am F/u Blood cults 08/01 Changed LIJ and pulled PICC line (HD not changed) and changed louis 08/01 cont merrem (07/26) and Zyvox (07/28) and micafungin Added Flagyl 08/01 -previously on cefepime, flagyl & dapto Gen surgery following f/u BC from 07/27 neg to date Maintain aspiration precautions Anemia deferred to primary Critically ill D/w Dr. Villanueva/Gareth and Alfonso D/w nursing WILLY BARAKAT MD Aug 05, 2019 08:30
[2019-08-05 08:50] LABS: BASE EXCESS ABG 0 mmol/L (-3-3); HCO3 ABG 24 mmol/L (21-28); PCO2 ABG 33 mmHg (35-46); PO2 ABG 136 mmHg (75-108); SAT O2 ABG 98 % (92-99)
[2019-08-05 09:01] LABS: FIO2 ABG 35
--- NOTE | 2019-08-05 09:04 | PDOC ---
PROGRESS NOTES Chief Complaint Chief Complaint A/P: Respiratory failure requiring mechanical ventilation (on vent since 07/10) bilateral pleural effusions/pulm edema Sepsis Severe Acute gallstone pancreatitis (not a surgical candidate at this time) with necrosis Acute kidney failure now requiring dialysis Salpingitis Gallstones (Calculus of gallbladder with acute cholecystitis without obstruction) HTN Leukocytosis Hypoxia Uterine fibroid Intractable pain Intractable nausea Covid 19 negative. Acute on chronic anemia EEG: No seizure activity. ESRD on HD Hyperglycemia, persistently in 200s History of Present Illness History of Present Illness Ms Diaz is a 48yo F w/ PMHx HTN, prediabetes who presented to the emergency room with complaints of abdominal pain on 07/04/2019. Found with Lipase 62168, AST 401, ALT 249, Bilirubin 1.4. CT abdomen confirms pancreatic inflammation, peripancreatic fluid and inflammatory changes around the pancreas consistent with pancreatitis. Cholelithiasis and 1.4cm uterine fibroid as well as possible left salpingitis. Admitted for further care GI, General surgery, ID, Pulm consulted. 07/04: No urine output. Added dilaudid for pain, PICC placed per IR. Renal US negative.Seen bedside in ICU, given 2L additional NSS and albumin infusion. Still hypotensive, started on levophed. Repeat CT abdomen with necrosis. 07/05: O2 saturation 87% on nasal cannula oxygen. Dialysis catheter per nephrology 07/06: She is now on BiPAP appears more ill, now on dialysis 07/07: Seen on BiPAP. Her mother and another family member are present and seemed to be good support for her. Currently on dialysis. Appears critically ill 07/08: Overnight Tmax 101.7 , still on BiPAP FiO2 40%, still on low dose Levophed gtt, TPN initiated. On dialysis 07/24: Tracheostomy 07/30: S/p tracheostomy on vent spontaneous respirations with 5 of pressure support 35% FiO2, rectal tube and a Lind, off pressors 07/31: Off pressors. Seen on dialysis this morning. BUN 80. Tracking with her eyes. Still on vent via trach. 08/01: BUN 68, Cr 1.7. Temp 100.2F axillary. WBC 9.8. Still on vent via trach. Tracking reasonably well. In obvious discomfort. Removed PICC and CVC LIJ and replaced. Tips sent for culture. CT chest/abd/pelvis with bilateral pleural effusion and ascites. 08/02: Renal function stable. Still on vent. More interactive today. Miming wish for food. Plan discussed for thoracentesis/paracentesis with daughters today. They were under impression patient was doing worse due to a miscommunication which has been clarified over the phone. 4.3L removed. 08/03: BUN 88, Cr 1.8. Much more interactive today. Appears more comfortable today. Febrile overnight 101.8F. More interactive, still on vent. Asking for ice by miming. Plan: Cont vent weaning, dialysis Vitals Vitals Vital Signs Date Time Temp Pulse Resp B/P (MAP) Pulse Ox O2 Delivery O2 Flow Rate FiO2 08/05/19 06:00 80 18 174/82 (112) 100 Ventilator 08/05/19 04:00 98.1 98.1 Physical Exam Physical Exam GENERAL: Alert and coop. mouthing words Appears comfortable has generalized anasarca - s/p suctioning with RT. Feels warm HEENT: Pupils equal, + NGT, oral cavity dry NECK: Trach/vent LUNGS: Diminished aeration HEART: S1, S2, regular ABDOMEN: Less Distended, hypoactive BS, : Lind changed 08/01 EXTREMITIES: Generalized edema, no cyanosis, SCDs bilaterally DERMATOLOGIC: Warm and dry. No generalized rash. CENTRAL NERVOUS SYSTEM: Responsive and seems appropriate HDC, LIJ (08/01) and RUE-PICC removed 08/01 General: Alert, Cooperative Heart: Other (increased rate) Lungs: Other (dimished in BLL) Abdomen: Soft, Other (distended ) Extremities: No edema, Other (SOME CLUBBING ) Skin: Other (mottling noted to extremities ) Labs LABS Laboratory Tests Test 08/04/19 10:00 08/04/19 19:31 08/04/19 23:53 08/05/19 06:00 White Blood Count 9.2 x10^3/uL (4.0-11.0) Red Blood Count 2.76 x10^6/uL (3.50-5.40) Hemoglobin 8.9 g/dL (12.0-15.5) Hematocrit 26.5 % (36.0-47.0) Mean Corpuscular Volume 96 fL (79-100) Mean Corpuscular Hemoglobin 32 pg (25-35) Mean Corpuscular Hemoglobin Concent 33 g/dL (31-37) Red Cell Distribution Width 18.9 % (11.5-14.5) Platelet Count 530 x10^3/uL (140-400) Neutrophils (%) (Auto) 66 % (31-73) Lymphocytes (%) (Auto) 21 % (24-48) Monocytes (%) (Auto) 12 % (0-9) Eosinophils (%) (Auto) 0 % (0-3) Basophils (%) (Auto) 1 % (0-3) Neutrophils # (Auto) 6.1 x10^3/uL (1.8-7.7) Lymphocytes # (Auto) 2.0 x10^3/uL (1.0-4.8) Monocytes # (Auto) 1.1 x10^3/uL (0.0-1.1) Eosinophils # (Auto) 0.0 x10^3/uL (0.0-0.7) Basophils # (Auto) 0.0 x10^3/uL (0.0-0.2) Glucose (Fingerstick) 142 mg/dL (70-99) 145 mg/dL (70-99) Sodium Level 140 mmol/L (136-145) Potassium Level 3.7 mmol/L (3.5-5.1) Chloride Level 103 mmol/L (98-107) Carbon Dioxide Level 26 mmol/L (21-32) Anion Gap 11 (6-14) Blood Urea Nitrogen 80 mg/dL (7-20) Creatinine 1.6 mg/dL (0.6-1.0) Estimated GFR (Cockcroft-Gault) 34.3 BUN/Creatinine Ratio 50 (6-20) Glucose Level 130 mg/dL (70-99) Calcium Level 8.4 mg/dL (8.5-10.1) Phosphorus Level 5.2 mg/dL (2.6-4.7) Total Bilirubin 0.4 mg/dL (0.2-1.0) Aspartate Amino Transf (AST/SGOT) 23 U/L (15-37) Alanine Aminotransferase (ALT/SGPT) 12 U/L (14-59) Alkaline Phosphatase 52 U/L (46-116) Total Protein 4.9 g/dL (6.4-8.2) Albumin 2.6 g/dL (3.4-5.0) Albumin/Globulin Ratio 1.1 (1.0-1.7) Test 08/05/19 06:06 08/05/19 07:00 Glucose (Fingerstick) 129 mg/dL (70-99) White Blood Count 5.8 x10^3/uL (4.0-11.0) Red Blood Count 2.40 x10^6/uL (3.50-5.40) Hemoglobin 7.6 g/dL (12.0-15.5) Hematocrit 22.8 % (36.0-47.0) Mean Corpuscular Volume 95 fL (79-100) Mean Corpuscular Hemoglobin 32 pg (25-35) Mean Corpuscular Hemoglobin Concent 33 g/dL (31-37) Red Cell Distribution Width 18.4 % (11.5-14.5) Platelet Count 498 x10^3/uL (140-400) Neutrophils (%) (Auto) 67 % (31-73) Lymphocytes (%) (Auto) 17 % (24-48) Monocytes (%) (Auto) 14 % (0-9) Eosinophils (%) (Auto) 1 % (0-3) Basophils (%) (Auto) 1 % (0-3) Neutrophils # (Auto) 3.9 x10^3/uL (1.8-7.7) Lymphocytes # (Auto) 1.0 x10^3/uL (1.0-4.8) Monocytes # (Auto) 0.8 x10^3/uL (0.0-1.1) Eosinophils # (Auto) 0.0 x10^3/uL (0.0-0.7) Basophils # (Auto) 0.0 x10^3/uL (0.0-0.2) Assessment and Plan Assessmemt and Plan Problems Medical Problems: (1) Acute pancreatitis Status: Acute (2) Cholelithiasis Status: Acute Comment Review of Relevant I have reviewed the following items kolby (where applicable) has been applied. Labs Laboratory Tests Test 08/03/19 11:57 08/03/19 12:35 08/03/19 23:48 08/04/19 06:15 Glucose (Fingerstick) 164 mg/dL (70-99) 158 mg/dL (70-99) Prothrombin Time 15.6 SEC (11.7-14.0) Prothromb Time International Ratio 1.3 (0.8-1.1) Sodium Level 139 mmol/L (136-145) Potassium Level 3.9 mmol/L (3.5-5.1) Chloride Level 102 mmol/L (98-107) Carbon Dioxide Level 25 mmol/L (21-32) Anion Gap 12 (6-14) Blood Urea Nitrogen 88 mg/dL (7-20) Creatinine 1.8 mg/dL (0.6-1.0) Estimated GFR (Cockcroft-Gault) 29.9 Glucose Level 120 mg/dL (70-99) Calcium Level 9.1 mg/dL (8.5-10.1) Phosphorus Level 5.1 mg/dL (2.6-4.7) Magnesium Level 2.0 mg/dL (1.8-2.4) Test 08/04/19 06:18 08/04/19 08:00 08/04/19 10:00 08/04/19 19:31 Glucose (Fingerstick) 106 mg/dL (70-99) 142 mg/dL (70-99) O2 Saturation 97 % (92-99) Arterial Blood pH 7.45 (7.35-7.45) Arterial Blood pH (Temp corrected) 7.43 Arterial Blood pCO2 at Patient Temp 33 mmHg (35-46) Arterial Blood pCO2 (Temp correct) 35 mmHg Arterial Blood pO2 at Patient Temp 103 mmHg (75-108) Arterial Blood pO2 (Temp corrected) 114 mmHg Arterial Blood HCO3 22 mmol/L (21-28) Arterial Blood Base Excess -1 mmol/L (-3-3) FiO2 35% vent White Blood Count 9.2 x10^3/uL (4.0-11.0) Red Blood Count 2.76 x10^6/uL (3.50-5.40) Hemoglobin 8.9 g/dL (12.0-15.5) Hematocrit 26.5 % (36.0-47.0) Mean Corpuscular Volume 96 fL (79-100) Mean Corpuscular Hemoglobin 32 pg (25-35) Mean Corpuscular Hemoglobin Concent 33 g/dL (31-37) Red Cell Distribution Width 18.9 % (11.5-14.5) Platelet Count 530 x10^3/uL (140-400) Neutrophils (%) (Auto) 66 % (31-73) Lymphocytes (%) (Auto) 21 % (24-48) Monocytes (%) (Auto) 12 % (0-9) Eosinophils (%) (Auto) 0 % (0-3) Basophils (%) (Auto) 1 % (0-3) Neutrophils # (Auto) 6.1 x10^3/uL (1.8-7.7) Lymphocytes # (Auto) 2.0 x10^3/uL (1.0-4.8) Monocytes # (Auto) 1.1 x10^3/uL (0.0-1.1) Eosinophils # (Auto) 0.0 x10^3/uL (0.0-0.7) Basophils # (Auto) 0.0 x10^3/uL (0.0-0.2) Test 08/04/19 23:53 08/05/19 06:00 08/05/19 06:06 08/05/19 07:00 Glucose (Fingerstick) 145 mg/dL (70-99) 129 mg/dL (70-99) Sodium Level 140 mmol/L (136-145) Potassium Level 3.7 mmol/L (3.5-5.1) Chloride Level 103 mmol/L (98-107) Carbon Dioxide Level 26 mmol/L (21-32) Anion Gap 11 (6-14) Blood Urea Nitrogen 80 mg/dL (7-20) Creatinine 1.6 mg/dL (0.6-1.0) Estimated GFR (Cockcroft-Gault) 34.3 BUN/Creatinine Ratio 50 (6-20) Glucose Level 130 mg/dL (70-99) Calcium Level 8.4 mg/dL (8.5-10.1) Phosphorus Level 5.2 mg/dL (2.6-4.7) Total Bilirubin 0.4 mg/dL (0.2-1.0) Aspartate Amino Transf (AST/SGOT) 23 U/L (15-37) Alanine Aminotransferase (ALT/SGPT) 12 U/L (14-59) Alkaline Phosphatase 52 U/L (46-116) Total Protein 4.9 g/dL (6.4-8.2) Albumin 2.6 g/dL (3.4-5.0) Albumin/Globulin Ratio 1.1 (1.0-1.7) White Blood Count 5.8 x10^3/uL (4.0-11.0) Red Blood Count 2.40 x10^6/uL (3.50-5.40) Hemoglobin 7.6 g/dL (12.0-15.5) Hematocrit 22.8 % (36.0-47.0) Mean Corpuscular Volume 95 fL (79-100) Mean Corpuscular Hemoglobin 32 pg (25-35) Mean Corpuscular Hemoglobin Concent 33 g/dL (31-37) Red Cell Distribution Width 18.4 % (11.5-14.5) Platelet Count 498 x10^3/uL (140-400) Neutrophils (%) (Auto) 67 % (31-73) Lymphocytes (%) (Auto) 17 % (24-48) Monocytes (%) (Auto) 14 % (0-9) Eosinophils (%) (Auto) 1 % (0-3) Basophils (%) (Auto) 1 % (0-3) Neutrophils # (Auto) 3.9 x10^3/uL (1.8-7.7) Lymphocytes # (Auto) 1.0 x10^3/uL (1.0-4.8) Monocytes # (Auto) 0.8 x10^3/uL (0.0-1.1) Eosinophils # (Auto) 0.0 x10^3/uL (0.0-0.7) Basophils # (Auto) 0.0 x10^3/uL (0.0-0.2) Laboratory Tests Test 08/04/19 10:00 08/04/19 19:31 08/04/19 23:53 08/05/19 06:00 White Blood Count 9.2 x10^3/uL (4.0-11.0) Red Blood Count 2.76 x10^6/uL (3.50-5.40) Hemoglobin 8.9 g/dL (12.0-15.5) Hematocrit 26.5 % (36.0-47.0) Mean Corpuscular Volume 96 fL (79-100) Mean Corpuscular Hemoglobin 32 pg (25-35) Mean Corpuscular Hemoglobin Concent 33 g/dL (31-37) Red Cell Distribution Width 18.9 % (11.5-14.5) Platelet Count 530 x10^3/uL (140-400) Neutrophils (%) (Auto) 66 % (31-73) Lymphocytes (%) (Auto) 21 % (24-48) Monocytes (%) (Auto) 12 % (0-9) Eosinophils (%) (Auto) 0 % (0-3) Basophils (%) (Auto) 1 % (0-3) Neutrophils # (Auto) 6.1 x10^3/uL (1.8-7.7) Lymphocytes # (Auto) 2.0 x10^3/uL (1.0-4.8) Monocytes # (Auto) 1.1 x10^3/uL (0.0-1.1) Eosinophils # (Auto) 0.0 x10^3/uL (0.0-0.7) Basophils # (Auto) 0.0 x10^3/uL (0.0-0.2) Glucose (Fingerstick) 142 mg/dL (70-99) 145 mg/dL (70-99) Sodium Level 140 mmol/L (136-145) Potassium Level 3.7 mmol/L (3.5-5.1) Chloride Level 103 mmol/L (98-107) Carbon Dioxide Level 26 mmol/L (21-32) Anion Gap 11 (6-14) Blood Urea Nitrogen 80 mg/dL (7-20) Creatinine 1.6 mg/dL (0.6-1.0) Estimated GFR (Cockcroft-Gault) 34.3 BUN/Creatinine Ratio 50 (6-20) Glucose Level 130 mg/dL (70-99) Calcium Level 8.4 mg/dL (8.5-10.1) Phosphorus Level 5.2 mg/dL (2.6-4.7) Total Bilirubin 0.4 mg/dL (0.2-1.0) Aspartate Amino Transf (AST/SGOT) 23 U/L (15-37) Alanine Aminotransferase (ALT/SGPT) 12 U/L (14-59) Alkaline Phosphatase 52 U/L (46-116) Total Protein 4.9 g/dL (6.4-8.2) Albumin 2.6 g/dL (3.4-5.0) Albumin/Globulin Ratio 1.1 (1.0-1.7) Test 08/05/19 06:06 08/05/19 07:00 Glucose (Fingerstick) 129 mg/dL (70-99) White Blood Count 5.8 x10^3/uL (4.0-11.0) Red Blood Count 2.40 x10^6/uL (3.50-5.40) Hemoglobin 7.6 g/dL (12.0-15.5) Hematocrit 22.8 % (36.0-47.0) Mean Corpuscular Volume 95 fL (79-100) Mean Corpuscular Hemoglobin 32 pg (25-35) Mean Corpuscular Hemoglobin Concent 33 g/dL (31-37) Red Cell Distribution Width 18.4 % (11.5-14.5) Platelet Count 498 x10^3/uL (140-400) Neutrophils (%) (Auto) 67 % (31-73) Lymphocytes (%) (Auto) 17 % (24-48) Monocytes (%) (Auto) 14 % (0-9) Eosinophils (%) (Auto) 1 % (0-3) Basophils (%) (Auto) 1 % (0-3) Neutrophils # (Auto) 3.9 x10^3/uL (1.8-7.7) Lymphocytes # (Auto) 1.0 x10^3/uL (1.0-4.8) Monocytes # (Auto) 0.8 x10^3/uL (0.0-1.1) Eosinophils # (Auto) 0.0 x10^3/uL (0.0-0.7) Basophils # (Auto) 0.0 x10^3/uL (0.0-0.2) Microbiology 08/02/19 Blood Culture - Preliminary, Resulted NO GROWTH AFTER 2 DAYS 07/31/19 Urine Culture - Final, Complete 07/31/19 Urine Culture Result 1 (ALEXANDRA) - Final, Complete Medications Current Medications Sodium Chloride 1,000 ml @ 1,000 mls/hr Q1H IV Last administered on 07/04/19at 03:00; Start 07/04/19 at 03:00; Stop 07/04/19 at 03:59; Status DC Ondansetron HCl (Zofran) 4 mg 1X ONCE IVP Last administered on 07/04/19at 03:27; Start 07/04/19 at 03:00; Stop 07/04/19 at 03:01; Status DC Morphine Sulfate (Morphine Sulfate) 4 mg 1X ONCE IV ; Start 07/04/19 at 03:00; Stop 07/04/19 at 03:01; Status Cancel Ketorolac Tromethamine (Toradol 30mg Vial) 30 mg 1X ONCE IV Last administered on 07/04/19at 02:54; Start 07/04/19 at 03:00; Stop 07/04/19 at 03:01; Status DC Fentanyl Citrate (Fentanyl 2ml Vial) 25 mcg 1X ONCE IVP Last administered on 07/04/19at 03:23; Start 07/04/19 at 03:30; Stop 07/04/19 at 03:31; Status DC Fentanyl Citrate (Fentanyl 2ml Vial) 100 mcg STK-MED ONCE .ROUTE ; Start 07/04/19 at 03:18; Stop 07/04/19 at 03:18; Status DC Iohexol (Omnipaque 350 Mg/ml) 90 ml 1X ONCE IV Last administered on 07/04/19at 03:25; Start 07/04/19 at 03:30; Stop 07/04/19 at 03:31; Status DC Info (CONTRAST GIVEN -- Rx MONITORING) 1 each PRN DAILY PRN MC SEE COMMENTS; Start 07/04/19 at 03:30; Stop 07/06/19 at 03:29; Status DC Hydromorphone HCl (Dilaudid) 0.5 mg 1X ONCE IV Last administered on 07/04/19at 03:55; Start 07/04/19 at 04:30; Stop 07/04/19 at 04:32; Status DC Ondansetron HCl (Zofran) 4 mg PRN Q8HRS PRN IV NAUSEA/VOMITING 1ST CHOICE; Start 07/04/19 at 05:00; Stop 07/04/19 at 09:27; Status DC Morphine Sulfate (Morphine Sulfate) 2 mg PRN Q2HR PRN IV SEVERE PAIN 7-10 Last administered on 07/05/19at 12:26; Start 07/04/19 at 05:00; Stop 07/05/19 at 14:15; Status DC Sodium Chloride 1,000 ml @ 125 mls/hr Q8H IV Last administered on 07/04/19at 20:56; Start 07/04/19 at 05:00; Stop 07/05/19 at 04:59; Status DC Hydromorphone HCl (Dilaudid) 0.5 mg PRN Q3HRS PRN IV SEVERE PAIN 7-10 Last administered on 07/05/19at 10:06; Start 07/04/19 at 05:00; Stop 07/05/19 at 12:01; Status DC Piperacillin Sod/ Tazobactam Sod 4.5 gm/Sodium Chloride 100 ml @ 200 mls/hr 1X ONCE IV Last administered on 07/04/19at 05:44; Start 07/04/19 at 06:00; Stop 07/04/19 at 06:29; Status DC Ondansetron HCl (Zofran) 4 mg PRN Q4HRS PRN IV NAUSEA/VOMITING 1ST CHOICE Last administered on 08/05/19at 03:51; Start 07/04/19 at 09:30 Insulin Human Lispro (HumaLOG) 0-9 UNITS Q6HRS SQ Last administered on 08/03/19at 23:50; Start 07/04/19 at 09:30 Dextrose (Dextrose 50%-Water Syringe) 12.5 gm PRN Q15MIN PRN IV SEE COMMENTS; Start 07/04/19 at 09:30 Pantoprazole Sodium (PROTONIX VIAL for IV PUSH) 40 mg DAILYAC IVP Last administered on 08/04/19at 08:54; Start 07/04/19 at 11:30 Prochlorperazine Edisylate (Compazine) 10 mg PRN Q6HRS PRN IV NAUSEA/VOMITING, 2nd CHOICE Last administered on 07/05/19at 00:42; Start 07/04/19 at 17:45 Atenolol (Tenormin) 100 mg DAILY PO ; Start 07/05/19 at 09:00; Stop 07/04/19 at 20:08; Status DC Metoprolol Tartrate (Lopressor Vial) 2.5 mg Q6HRS IVP Last administered on 07/05/19at 05:51; Start 07/04/19 at 20:15; Stop 07/05/19 at 10:02; Status DC Metoprolol Tartrate (Lopressor Vial) 5 mg Q6HRS IVP Last administered on 07/14/19at 00:12; Start 07/05/19 at 10:15; Stop 07/16/19 at 08:48; Status DC Hydromorphone HCl (Dilaudid) 1 mg PRN Q3HRS PRN IV SEVERE PAIN 7-10 Last administered on 07/11/19at 05:13; Start 07/05/19 at 12:00; Stop 07/19/19 at 00:25; Status DC Lidocaine HCl (Buffered Lidocaine 1%) 3 ml STK-MED ONCE .ROUTE ; Start 07/05/19 at 12:55; Stop 07/05/19 at 12:56; Status DC Albumin Human 500 ml @ 125 mls/hr 1X ONCE IV Last administered on 07/05/19at 14:33; Start 07/05/19 at 14:30; Stop 07/05/19 at 18:32; Status DC Norepinephrine Bitartrate 8 mg/ Dextrose 258 ml @ 17.299 mls/ hr CONT PRN IV PER PROTOCOL Last administered on 08/02/19at 12:48; Start 07/05/19 at 15:30 Sodium Chloride 1,000 ml @ 125 mls/hr Q8H IV Last administered on 07/05/19at 21:04; Start 07/05/19 at 16:00; Stop 07/06/19 at 02:42; Status DC Albumin Human 500 ml @ 125 mls/hr PRN BID PRN IV After every 2L NSS & BP < 90mm Last administered on 07/20/19at 14:21; Start 07/05/19 at 16:00 Iohexol (Omnipaque 300 Mg/ml) 60 ml 1X ONCE IV Last administered on 07/05/19at 17:20; Start 07/05/19 at 17:00; Stop 07/05/19 at 17:01; Status DC Info (CONTRAST GIVEN -- Rx MONITORING) 1 each PRN DAILY PRN MC SEE COMMENTS; Start 07/05/19 at 17:00; Stop 07/07/19 at 16:59; Status DC Meropenem 1 gm/ Sodium Chloride 100 ml @ 200 mls/hr Q8HRS IV Last administered on 07/06/19at 05:45; Start 07/05/19 at 20:00; Stop 07/06/19 at 08:48; Status DC Furosemide (Lasix) 40 mg 1X ONCE IVP Last administered on 07/05/19at 22:12; Start 07/05/19 at 22:30; Stop 07/05/19 at 22:31; Status DC Calcium Chloride 1000 mg/Sodium Chloride 110 ml @ 220 mls/hr 1X ONCE IV Last administered on 07/05/19at 22:11; Start 07/05/19 at 22:30; Stop 07/05/19 at 22:59; Status DC Albuterol Sulfate (Ventolin Neb Soln) 2.5 mg 1X ONCE NEB Last administered on 07/06/19at 00:56; Start 07/05/19 at 22:30; Stop 07/05/19 at 22:31; Status DC Insulin Human Regular (HumuLIN R VIAL) 5 unit 1X ONCE IV Last administered on 07/05/19at 22:14; Start 07/05/19 at 22:30; Stop 07/05/19 at 22:31; Status DC Magnesium Sulfate 50 ml @ 25 mls/hr 1X ONCE IV Last administered on 07/06/19at 02:57; Start 07/06/19 at 03:00; Stop 07/06/19 at 04:59; Status DC Calcium Gluconate 1000 mg/Sodium Chloride 110 ml @ 220 mls/hr 1X ONCE IV Last administered on 07/06/19at 02:46; Start 07/06/19 at 03:00; Stop 07/06/19 at 03:29; Status DC Sodium Chloride 1,000 ml @ 200 mls/hr Q5H IV Last administered on 07/06/19at 02:46; Start 07/06/19 at 03:00; Stop 07/06/19 at 10:21; Status DC Calcium Gluconate 1000 mg/Sodium Chloride 110 ml @ 220 mls/hr 1X ONCE IV Last administered on 07/06/19at 03:21; Start 07/06/19 at 03:30; Stop 07/06/19 at 03:59; Status DC Sodium Bicarbonate 50 meq/Sodium Chloride 1,050 ml @ 75 mls/hr Q14H IV Last administered on 07/10/19at 21:10; Start 07/06/19 at 07:30; Stop 07/11/19 at 10:28; Status DC Calcium Gluconate 2000 mg/Sodium Chloride 120 ml @ 220 mls/hr 1X ONCE IV Last administered on 07/06/19at 09:05; Start 07/06/19 at 07:30; Stop 07/06/19 at 08:02; Status DC Lidocaine HCl (Xylocaine-Mpf 1% 2ml Vial) 2 ml STK-MED ONCE .ROUTE ; Start 07/06/19 at 08:47; Stop 07/06/19 at 08:47; Status DC Meropenem 500 mg/ Sodium Chloride 50 ml @ 100 mls/hr Q12HR IV Last administered on 07/11/19at 21:01; Start 07/06/19 at 18:00; Stop 07/12/19 at 07:58; Status DC Lidocaine HCl (Buffered Lidocaine 1%) 3 ml STK-MED ONCE .ROUTE ; Start 07/06/19 at 09:46; Stop 07/06/19 at 09:46; Status DC Lidocaine HCl (Buffered Lidocaine 1%) 6 ml 1X ONCE INJ Last administered on 07/06/19at 10:26; Start 07/06/19 at 10:15; Stop 07/06/19 at 10:16; Status DC Info (Tpn Per Pharmacy) 1 each PRN DAILY PRN MC SEE COMMENTS Last administered on 08/04/19at 13:19; Start 07/06/19 at 12:00 Sodium Chloride 1,000 ml @ 1,000 mls/hr Q1H PRN IV hypotension; Start 07/06/19 at 12:07; Stop 07/06/19 at 18:06; Status DC Diphenhydramine HCl (Benadryl) 25 mg 1X PRN PRN IV ITCHING; Start 07/06/19 at 12:15; Stop 07/07/19 at 12:14; Status DC Diphenhydramine HCl (Benadryl) 25 mg 1X PRN PRN IV ITCHING; Start 07/06/19 at 12:15; Stop 07/07/19 at 12:14; Status DC Sodium Chloride 1,000 ml @ 400 mls/hr Q2H30M PRN IV PATENCY; Start 07/06/19 at 12:07; Stop 07/07/19 at 00:06; Status DC Info (PHARMACY MONITORING -- do not chart) 1 each PRN DAILY PRN MC SEE COMMENTS; Start 07/06/19 at 12:15; Stop 07/08/19 at 08:13; Status DC Sodium Chloride 90 meq/Calcium Gluconate 10 meq/ Multivitamins 10 ml/Chromium/ Copper/Manganese/ Seleni/Zn 1 ml/ Total Parenteral Nutrition/Amino Acids/Dextrose/ Fat Emulsion Intravenous 55.005 ml @ 2.292 mls/hr TPN CONT IV ; Start 07/06/19 at 22:00; Stop 07/06/19 at 12:33; Status DC Info (Tpn Per Pharmacy) 1 each PRN DAILY PRN MC SEE COMMENTS; Start 07/06/19 at 12:30; Status UNV Sodium Chloride 90 meq/Calcium Gluconate 10 meq/ Multivitamins 10 ml/Chromium/ Copper/Manganese/ Seleni/Zn 0.5 ml/ Total Parenteral Nutrition/Amino Acids/Dextrose/ Fat Emulsion Intravenous 1,512 ml @ 63 mls/hr TPN CONT IV Last administered on 07/06/19at 22:06; Start 07/06/19 at 22:00; Stop 07/07/19 at 21:59; Status DC Calcium Carbonate/ Glycine (Tums) 500 mg PRN AFTMEALHC PRN PO INDIGESTION; Start 07/06/19 at 17:45 Calcium Gluconate (Calcium Gluconate) 2,000 mg 1X ONCE IVP Last administered on 07/07/19at 02:19; Start 07/07/19 at 02:15; Stop 07/07/19 at 02:16; Status DC Calcium Chloride 3000 mg/Sodium Chloride 1,030 ml @ 50 mls/hr [id number] IV Last administered on 07/09/19at 02:17; Start 07/07/19 at 08:00; Stop 07/09/19 at 15:23; Status DC Lorazepam (Ativan Inj) 1 mg PRN Q4HRS PRN IVP ANXIETY / AGITATION, 2nd choic Last administered on 08/05/19at 03:51; Start 07/07/19 at 09:00 Sodium Chloride 1,000 ml @ 1,000 mls/hr Q1H PRN IV hypotension; Start 07/07/19 at 08:56; Stop 07/07/19 at 14:55; Status DC Albumin Human 200 ml @ 200 mls/hr 1X PRN PRN IV Hypotension; Start 07/07/19 at 09:00; Stop 07/07/19 at 14:59; Status DC Diphenhydramine HCl (Benadryl) 25 mg 1X PRN PRN IV ITCHING; Start 07/07/19 at 09:00; Stop 07/08/19 at 08:59; Status DC Diphenhydramine HCl (Benadryl) 25 mg 1X PRN PRN IV ITCHING; Start 07/07/19 at 09:00; Stop 07/08/19 at 08:59; Status DC Sodium Chloride 1,000 ml @ 400 mls/hr Q2H30M PRN IV PATENCY; Start 07/07/19 at 08:56; Stop 07/07/19 at 20:55; Status DC Info (PHARMACY MONITORING -- do not chart) 1 each PRN DAILY PRN MC SEE PIPE TS; Start 07/07/19 at 09:00; Status UNV Info (PHARMACY MONITORING -- do not chart) 1 each PRN DAILY PRN MC SEE COMMENTS; Start 07/07/19 at 09:00; Stop 07/08/19 at 08:13; Status DC Digoxin (Lanoxin) 500 mcg 1X ONCE IV Last administered on 07/07/19at 10:04; Start 07/07/19 at 10:00; Stop 07/07/19 at 10:01; Status DC Digoxin (Lanoxin) 125 mcg 1X ONCE IV Last administered on 07/07/19at 17:10; Start 07/07/19 at 18:00; Stop 07/07/19 at 18:01; Status DC Magnesium Sulfate 100 ml @ 25 mls/hr 1X ONCE IV Last administered on 07/07/19at 12:48; Start 07/07/19 at 13:00; Stop 07/07/19 at 16:59; Status DC Sodium Chloride 90 meq/Magnesium Sulfate 10 meq/ Calcium Gluconate 20 meq/ Multivitamins 10 ml/Chromium/ Copper/Manganese/ Seleni/Zn 0.5 ml/ Total Parenteral Nutrition/Amino Acids/Dextrose/ Fat Emulsion Intravenous 1,512 ml @ 63 mls/hr TPN CONT IV Last administered on 07/07/19at 22:25; Start 07/07/19 at 22:00; Stop 07/08/19 at 21:59; Status DC Sodium Chloride 1,000 ml @ 1,000 mls/hr Q1H PRN IV hypotension; Start 07/08/19 at 08:05; Stop 07/08/19 at 14:04; Status DC Albumin Human 200 ml @ 200 mls/hr 1X ONCE IV Last administered on 07/08/19at 08:57; Start 07/08/19 at 08:15; Stop 07/08/19 at 09:14; Status DC Diphenhydramine HCl (Benadryl) 25 mg 1X PRN PRN IV ITCHING; Start 07/08/19 at 08:15; Stop 07/09/19 at 08:14; Status DC Diphenhydramine HCl (Benadryl) 25 mg 1X PRN PRN IV ITCHING; Start 07/08/19 at 08:15; Stop 07/09/19 at 08:14; Status DC Sodium Chloride 1,000 ml @ 400 mls/hr Q2H30M PRN IV PATENCY; Start 07/08/19 at 08:05; Stop 07/08/19 at 20:04; Status DC Info (PHARMACY MONITORING -- do not chart) 1 each PRN DAILY PRN MC SEE CO MMENTS; Start 07/08/19 at 08:15; Stop 07/12/19 at 07:57; Status DC Sodium Chloride 90 meq/Potassium Chloride 15 meq/ Potassium Phosphate 10 mmol/ Magnesium Sulfate 10 meq/Calcium Gluconate 20 meq/ Multivitamins 10 ml/Chromium/ Copper/Manganese/ Seleni/Zn 0.5 ml/ Total Parenteral Nutrition/Amino Acids/Dextrose/ Fat Emulsion Intravenous 1,512 ml @ 63 mls/hr TPN CONT IV Last administered on 07/08/19at 21:01; Start 07/08/19 at 22:00; Stop 07/09/19 at 21:59; Status DC Potassium Chloride/Water 100 ml @ 100 mls/hr 1X ONCE IV Last administered on 07/08/19at 14:09; Start 07/08/19 at 14:00; Stop 07/08/19 at 14:59; Status DC Benzocaine (Hurricaine One) 1 spray 1X ONCE MM Last administered on 07/08/19at 16:38; Start 07/08/19 at 14:30; Stop 07/08/19 at 14:31; Status DC Lidocaine HCl (Glydo (Lidocaine) Jelly) 1 ramu 1X ONCE MM Last administered on 07/08/19at 16:38; Start 07/08/19 at 14:30; Stop 07/08/19 at 14:31; Status DC Linezolid/Dextrose 300 ml @ 300 mls/hr Q12HR IV Last administered on 07/14/19at 21:04; Start 07/08/19 at 20:00; Stop 07/15/19 at 07:50; Status DC Acetaminophen (Tylenol) 650 mg PRN Q6HRS PRN PO MILD PAIN / TEMP; Start 07/09/19 at 03:30; Stop 07/09/19 at 03:36; Status DC Acetaminophen (Tylenol) 650 mg PRN Q6HRS PRN PEG MILD PAIN / TEMP Last administered on 08/04/19at 19:56; Start 07/09/19 at 03:36 Sodium Chloride 1,000 ml @ 1,000 mls/hr Q1H PRN IV hypotension; Start 07/09/19 at 07:50; Stop 07/09/19 at 13:49; Status DC Albumin Human 200 ml @ 200 mls/hr 1X PRN PRN IV Hypotension; Start 07/09/19 at 08:00; Stop 07/09/19 at 13:59; Status DC Sodium Chloride (Normal Saline Flush) 10 ml 1X PRN PRN IV AP catheter pack; S tart 07/09/19 at 08:00; Stop 07/10/19 at 07:59; Status DC Sodium Chloride (Normal Saline Flush) 10 ml 1X PRN PRN IV CLINICAL SOCIOLOGIST catheter pack; Start 07/09/19 at 08:00; Stop 07/10/19 at 07:59; Status DC Sodium Chloride 1,000 ml @ 400 mls/hr Q2H30M PRN IV PATENCY; Start 07/09/19 at 07:50; Stop 07/09/19 at 19:49; Status DC Info (PHARMACY MONITORING -- do not chart) 1 each PRN DAILY PRN MC SEE COMMENTS; Start 07/09/19 at 08:00; Status UNV Info (PHARMACY MONITORING -- do not chart) 1 each PRN DAILY PRN MC SEE COMM ENTS; Start 07/09/19 at 08:00; Stop 07/11/19 at 08:25; Status DC Sodium Chloride 90 meq/Potassium Chloride 15 meq/ Potassium Phosphate 10 mmol/ Magnesium Sulfate 10 meq/Calcium Gluconate 20 meq/ Multivitamins 10 ml/Chromium/ Copper/Manganese/ Seleni/Zn 0.5 ml/ Total Parenteral Nutrition/Amino Acids/Dextrose/ Fat Emulsion Intravenous 1,512 ml @ 63 mls/hr TPN CONT IV Last administered on 07/09/19at 20:57; Start 07/09/19 at 22:00; Stop 07/10/19 at 21:59; Status DC Sodium Chloride 90 meq/Potassium Chloride 15 meq/ Potassium Phosphate 15 mmol/ Magnesium Sulfate 10 meq/Calcium Gluconate 20 meq/ Multivitamins 10 ml/Chromium/ Copper/Manganese/ Seleni/Zn 0.5 ml/ Total Parenteral Nutrition/Amino Acids/Dextrose/ Fat Emulsion Intravenous 1,512 ml @ 63 mls/hr TPN CONT IV ; Start 07/10/19 at 22:00; Stop 07/10/19 at 14:16; Status DC Sodium Chloride 90 meq/Potassium Chloride 15 meq/ Potassium Phosphate 15 mmol/ Magnesium Sulfate 10 meq/Calcium Gluconate 20 meq/ Multivitamins 10 ml/Chromium/ Copper/Manganese/ Seleni/Zn 0.5 ml/ Total Parenteral Nutrition/Amino Acids/Dextrose/ Fat Emulsion Intravenous 1,200 ml @ 50 mls/hr TPN CONT IV ; Start 07/10/19 at 22:00; Stop 07/10/19 at 14:17; Status DC Sodium Chloride 90 meq/Potassium Chloride 15 meq/ Potassium Phosphate 10 mmol/ Magnesium Sulfate 10 meq/Calcium Gluconate 20 meq/ Multivitamins 10 ml/Chromium/ Copper/Manganese/ Seleni/Zn 0.5 ml/ Total Parenteral Nutrition/Amino Acids/Dextrose/ Fat Emulsion Intravenous 1,200 ml @ 50 mls/hr TPN CONT IV Last administered on 07/10/19at 23:29; Start 07/10/19 at 22:00; Stop 07/11/19 at 21:59; Status DC Sodium Chloride 1,000 ml @ 1,000 mls/hr Q1H PRN IV hypotension; Start 07/11/19 at 07:28; Stop 07/11/19 at 13:27; Status DC Albumin Human 200 ml @ 200 mls/hr 1X ONCE IV Last administered on 07/11/19at 08:51; Start 07/11/19 at 07:30; Stop 07/11/19 at 08:29; Status DC Diphenhydramine HCl (Benadryl) 25 mg 1X PRN PRN IV ITCHING; Start 07/11/19 at 07:30; Stop 07/12/19 at 07:29; Status DC Diphenhydramine HCl (Benadryl) 25 mg 1X PRN PRN IV ITCHING; Start 07/11/19 at 07:30; Stop 07/12/19 at 07:29; Status DC Sodium Chloride 1,000 ml @ 400 mls/hr Q2H30M PRN IV PATENCY; Start 07/11/19 at 07:28; Stop 07/11/19 at 19:27; Status DC Info (PHARMACY MONITORING -- do not chart) 1 each PRN DAILY PRN MC SEE COMMENTS; Start 07/11/19 at 07:30; Stop 07/22/19 at 13:01; Status DC Metronidazole 100 ml @ 100 mls/hr Q6HRS IV Last administered on 07/27/19at 06:26; Start 07/11/19 at 08:30; Stop 07/27/19 at 09:58; Status DC Micafungin Sodium 100 mg/Dextrose 100 ml @ 100 mls/hr Q24H IV Last administered on 08/04/19at 15:08; Start 07/11/19 at 09:00 Propofol 0 ml @ As Directed STK-MED ONCE IV ; Start 07/11/19 at 07:53; Stop 07/11/19 at 07:53; Status DC Etomidate (Amidate) 20 mg STK-MED ONCE IV ; Start 07/11/19 at 07:53; Stop 07/11/19 at 07:54; Status DC Midazolam HCl (Versed) 5 mg STK-MED ONCE .ROUTE ; Start 07/11/19 at 07:57; Stop 07/11/19 at 07:57; Status DC Fentanyl Citrate 30 ml @ 0 mls/hr CONT PRN IV SEE PROTOCOL Last administered on 08/05/19at 06:12; Start 07/11/19 at 08:15 Artificial Tears (Artificial Tears) 1 drop PRN Q1HR PRN OU DRY EYE, 1st choice; Start 07/11/19 at 08:15 Midazolam HCl 50 mg/Sodium Chloride 50 ml @ 0 mls/hr CONT PRN IV SEE PROTOCOL Last administered on 07/14/19at 22:39; Start 07/11/19 at 08:15; Stop 07/16/19 at 15:59; Status DC Etomidate (Amidate) 8 mg 1X ONCE IV Last administered on 07/11/19at 08:33; Start 07/11/19 at 08:30; Stop 07/11/19 at 08:31; Status DC Succinylcholine Chloride (Anectine) 120 mg 1X ONCE IV Last administered on 07/11/19at 08:34; Start 07/11/19 at 08:30; Stop 07/11/19 at 08:31; Status DC Midazolam HCl (Versed) 5 mg 1X ONCE IV ; Start 07/11/19 at 08:30; Stop 07/11/19 at 08:31; Status DC Potassium Chloride 15 meq/ Bicarbonate Dialysis Soln w/ out KCl 5,007.5 ml @ 1,000 mls/ hr Q5H1M IV Last administered on 07/12/19at 11:11; Start 07/11/19 at 12:00; Stop 07/12/19 at 11:15; Status DC Potassium Chloride 15 meq/ Bicarbonate Dialysis Soln w/ out KCl 5,007.5 ml @ 1,000 mls/ hr Q5H1M IV Last administered on 07/12/19at 11:12; Start 07/11/19 at 12:00; Stop 07/12/19 at 11:17; Status DC Potassium Chloride 15 meq/ Bicarbonate Dialysis Soln w/ out KCl 5,007.5 ml @ 1,000 mls/ hr Q5H1M IV Last administered on 07/12/19at 11:11; Start 07/11/19 at 12:00; Stop 07/12/19 at 11:19; Status DC Sodium Chloride 90 meq/Potassium Chloride 15 meq/ Potassium Phosphate 10 mmol/ Magnesium Sulfate 10 meq/Calcium Gluconate 20 meq/ Multivitamins 10 ml/Chromium/ Copper/Manganese/ Seleni/Zn 0.5 ml/ Total Parenteral Nutrition/Amino Acids/Dextrose/ Fat Emulsion Intravenous 1,400 ml @ 58.333 mls/ hr TPN CONT IV Last administered on 07/11/19at 21:42; Start 07/11/19 at 22:00; Stop 07/12/19 at 21:59; Status DC Heparin Sodium (Porcine) (Heparin Sodium) 5,000 unit Q8HRS SQ Last administered on 07/16/19at 05:55; Start 07/11/19 at 15:00; Stop 07/16/19 at 13:28; Status DC Meropenem 500 mg/ Sodium Chloride 50 ml @ 100 mls/hr Q6HRS IV Last administered on 07/13/19at 06:00; Start 07/12/19 at 09:00; Stop 07/13/19 at 07:29; Status DC Potassium Phosphate 20 mmol/ Sodium Chloride 106.6667 ml @ 51.667 m... 1X ONCE IV Last administered on 07/12/19at 11:22; Start 07/12/19 at 10:15; Stop 07/12/19 at 12:18; Status DC Acetaminophen (Tylenol Supp) 650 mg PRN Q6HRS PRN [place] MILD PAIN / TEMP Last administered on 08/02/19at 08:01; Start 07/12/19 at 10:30 Potassium Chloride/Water 100 ml @ 100 mls/hr Q1H IV Last administered on 07/12/19at 12:12; Start 07/12/19 at 11:00; Stop 07/12/19 at 12:59; Status DC Potassium Chloride 20 meq/ Bicarbonate Dialysis Soln w/ out KCl 5,010 ml @ 1,000 mls/hr Q5H1M IV Last administered on 07/13/19at 08:48; Start 07/12/19 at 12:00; Stop 07/13/19 at 13:03; Status DC Potassium Chloride 20 meq/ Bicarbonate Dialysis Soln w/ out KCl 5,010 ml @ 1,000 mls/hr Q5H1M IV Last administered on 07/17/19at 14:52; Start 07/12/19 at 11:30; Stop 07/17/19 at 19:59; Status DC Potassium Chloride 20 meq/ Bicarbonate Dialysis Soln w/ out KCl 5,010 ml @ 1,000 mls/hr Q5H1M IV Last administered on 07/17/19at 14:53; Start 07/12/19 at 11:30; Stop 07/17/19 at 19:59; Status DC Sodium Chloride 90 meq/Potassium Chloride 15 meq/ Potassium Phosphate 15 mmol/ Magnesium Sulfate 10 meq/Calcium Gluconate 15 meq/ Multivitamins 10 ml/Chromium/ Copper/Manganese/ Seleni/Zn 0.5 ml/ Total Parenteral Nutrition/Amino Acids/Dextrose/ Fat Emulsion Intravenous 1,400 ml @ 58.333 mls/ hr TPN CONT IV Last administered on 07/12/19at 22:17; Start 07/12/19 at 22:00; Stop 07/13/19 at 21:59; Status DC Cefepime HCl (Maxipime) 2 gm Q12HR IVP Last administered on 07/26/19at 20:56; Start 07/13/19 at 09:00; Stop 07/27/19 at 09:58; Status DC Daptomycin 500 mg/ Sodium Chloride 50 ml @ 100 mls/hr Q48H IV Last administered on 07/29/19at 09:57; Start 07/13/19 at 08:30; Stop 07/29/19 at 10:07; Status DC Lidocaine HCl (Buffered Lidocaine 1%) 3 ml 1X ONCE INJ Last administered on 07/13/19at 10:27; Start 07/13/19 at 10:30; Stop 07/13/19 at 10:31; Status DC Potassium Phosphate 20 mmol/ Sodium Chloride 106.6667 ml @ 51.667 m... 1X ONCE IV Last administered on 07/13/19at 12:51; Start 07/13/19 at 13:00; Stop 07/13/19 at 15:03; Status DC Sodium Chloride 90 meq/Potassium Chloride 15 meq/ Potassium Phosphate 18 mmol/ Magnesium Sulfate 8 meq/Calcium Gluconate 15 meq/ Multivitamins 10 ml/Chromium/ Copper/Manganese/ Seleni/Zn 0.5 ml/ Total Parenteral Nutrition/Amino Acids/Dextrose/ Fat Emulsion Intravenous 1,400 ml @ 58.333 mls/ hr TPN CONT IV Last administered on 07/13/19at 22:16; Start 07/13/19 at 22:00; Stop 07/14/19 at 21:59; Status DC Potassium Chloride 20 meq/ Bicarbonate Dialysis Soln w/ out KCl 5,010 ml @ 1,000 mls/hr Q5H1M IV Last administered on 07/17/19at 14:54; Start 07/13/19 at 16:00; Stop 07/17/19 at 19:59; Status DC Multi-Ingred Cream/Lotion/Oil/ Oint (Artificial Tears Eye Ointment) 1 ramu PRN Q1HR PRN OU DRY EYE, 2nd choice Last administered on 08/01/19at 08:19; Start 07/13/19 at 17:30 Sodium Chloride 90 meq/Potassium Chloride 15 meq/ Potassium Phosphate 18 mmol/ Magnesium Sulfate 8 meq/Calcium Gluconate 15 meq/ Multivitamins 10 ml/Chromium/ Copper/Manganese/ Seleni/Zn 0.5 ml/ Total Parenteral Nutrition/Amino Acids/Dextrose/ Fat Emulsion Intravenous 1,400 ml @ 58.333 mls/ hr TPN CONT IV Last administered on 07/14/19at 22:00; Start 07/14/19 at 22:00; Stop 07/15/19 at 21:59; Status DC Albumin Human 500 ml @ 125 mls/hr 1X ONCE IV ; Start 07/14/19 at 14:15; Stop 07/14/19 at 18:14; Status DC Sodium Chloride 90 meq/Potassium Chloride 15 meq/ Potassium Phosphate 18 mmol/ Magnesium Sulfate 8 meq/Calcium Gluconate 15 meq/ Multivitamins 10 ml/Chromium/ Copper/Manganese/ Seleni/Zn 0.5 ml/ Insulin Human Regular 10 unit/ Total Parenteral Nutrition/Amino Acids/Dextrose/ Fat Emulsion Intravenous 1,400 ml @ 58.333 mls/ hr TPN CONT IV Last administered on 07/15/19at 21:43; Start 07/15/19 at 22:00; Stop 07/16/19 at 21:59; Status DC Lidocaine HCl (Buffered Lidocaine 1%) 3 ml STK-MED ONCE .ROUTE ; Start 07/13/19 at 10:00; Stop 07/15/19 at 13:57; Status DC Midazolam HCl 100 mg/Sodium Chloride 100 ml @ 7 mls/hr CONT PRN IV SEE PROTOCOL Last administered on 07/27/19at 15:35; Start 07/16/19 at 16:00 Sodium Chloride 90 meq/Potassium Chloride 15 meq/ Potassium Phosphate 18 mmol/ Magnesium Sulfate 8 meq/Calcium Gluconate 15 meq/ Multivitamins 10 ml/Chromium/ Copper/Manganese/ Seleni/Zn 0.5 ml/ Insulin Human Regular 15 unit/ Total Parenteral Nutrition/Amino Acids/Dextrose/ Fat Emulsion Intravenous 1,400 ml @ 58.333 mls/ hr TPN CONT IV Last administered on 07/16/19at 20:34; Start 07/16/19 at 22:00; Stop 07/17/19 at 21:59; Status DC Info (Icu Electrolyte Protocol) 1 ea CONT PRN PRN MC PER PROTOCOL; Start 07/17/19 at 13:15 Sodium Chloride 90 meq/Potassium Chloride 15 meq/ Potassium Phosphate 18 mmol/ Magnesium Sulfate 8 meq/Calcium Gluconate 15 meq/ Multivitamins 10 ml/Chromium/ Copper/Manganese/ Seleni/Zn 0.5 ml/ Insulin Human Regular 15 unit/ Total Parenteral Nutrition/Amino Acids/Dextrose/ Fat Emulsion Intravenous 1,400 ml @ 58.333 mls/ hr TPN CONT IV Last administered on 07/17/19at 22:05; Start 07/17/19 at 22:00; Stop 07/18/19 at 21:59; Status DC Potassium Chloride 15 meq/ Bicarbonate Dialysis Soln w/ out KCl 5,007.5 ml @ 1,000 mls/ hr Q5H1M IV Last administered on 07/20/19at 18:14; Start 07/17/19 at 20:00; Stop 07/21/19 at 13:08; Status DC Potassium Chloride 15 meq/ Bicarbonate Dialysis Soln w/ out KCl 5,007.5 ml @ 1,000 mls/ hr Q5H1M IV Last administered on 07/20/19at 18:14; Start 07/17/19 at 20:00; Stop 07/21/19 at 13:08; Status DC Potassium Chloride 15 meq/ Bicarbonate Dialysis Soln w/ out KCl 5,007.5 ml @ 1,000 mls/ hr Q5H1M IV Last administered on 07/20/19at 18:14; Start 07/17/19 at 20:00; Stop 07/21/19 at 13:08; Status DC Iohexol (Omnipaque 240 Mg/ml) 30 ml 1X ONCE PO Last administered on 07/18/19at 11:30; Start 07/18/19 at 11:30; Stop 07/18/19 at 11:33; Status DC Info (CONTRAST GIVEN -- Rx MONITORING) 1 each PRN DAILY PRN MC SEE COMMENTS; Start 07/18/19 at 11:45; Stop 07/20/19 at 11:44; Status DC Sodium Chloride 90 meq/Potassium Chloride 15 meq/ Potassium Phosphate 18 mmol/ Magnesium Sulfate 8 meq/Calcium Gluconate 15 meq/ Multivitamins 10 ml/Chromium/ Copper/Manganese/ Seleni/Zn 0.5 ml/ Insulin Human Regular 15 unit/ Total Parenteral Nutrition/Amino Acids/Dextrose/ Fat Emulsion Intravenous 1,400 ml @ 58.333 mls/ hr TPN CONT IV Last administered on 07/18/19at 21:47; Start 07/18/19 at 22:00; Stop 07/19/19 at 21:59; Status DC Sodium Chloride 90 meq/Potassium Chloride 15 meq/ Potassium Phosphate 18 mmol/ Magnesium Sulfate 8 meq/Calcium Gluconate 15 meq/ Multivitamins 10 ml/Chromium/ Copper/Manganese/ Seleni/Zn 0.5 ml/ Insulin Human Regular 20 unit/ Total Parenteral Nutrition/Amino Acids/Dextrose/ Fat Emulsion Intravenous 1,400 ml @ 58.333 mls/ hr TPN CONT IV Last administered on 07/19/19at 21:36; Start 07/19/19 at 22:00; Stop 07/20/19 at 21:59; Status DC Alteplase, Recombinant (Cathflo For Central Catheter Clearance) 1 mg 1X ONCE INT CAT Last administered on 07/19/19at 20:03; Start 07/19/19 at 19:30; Stop 07/19/19 at 19:46; Status DC Alteplase, Recombinant (Cathflo For Central Catheter Clearance) 1 mg 1X ONCE INT CAT Last administered on 07/19/19at 22:05; Start 07/19/19 at 22:00; Stop 07/19/19 at 22:01; Status DC Sodium Chloride 90 meq/Potassium Chloride 15 meq/ Potassium Phosphate 18 mmol/ Magnesium Sulfate 8 meq/Calcium Gluconate 15 meq/ Multivitamins 10 ml/Chromium/ Copper/Manganese/ Seleni/Zn 0.5 ml/ Insulin Human Regular 20 unit/ Total Parenteral Nutrition/Amino Acids/Dextrose/ Fat Emulsion Intravenous 1,400 ml @ 58.333 mls/ hr TPN CONT IV Last administered on 07/20/19at 21:30; Start 07/20/19 at 22:00; Stop 07/21/19 at 21:59; Status DC Dexmedetomidine HCl 400 mcg/ Sodium Chloride 100 ml @ 0 mls/hr CONT PRN IV ANXIETY / AGITATION Last administered on 08/05/19at 04:12; Start 07/21/19 at 08:15 Sodium Chloride 500 ml @ 500 mls/hr 1X PRN PRN IV ELEVATED BP, SEE COMMENTS; Start 07/21/19 at 08:15 Atropine Sulfate (ATROPINE 0.5mg SYRINGE) 0.5 mg PRN Q5MIN PRN IV SEE COMMENTS; Start 07/21/19 at 08:15 Furosemide (Lasix) 20 mg 1X ONCE IVP Last administered on 07/21/19at 08:19; Start 07/21/19 at 08:15; Stop 07/21/19 at 08:16; Status DC Lidocaine HCl (Buffered Lidocaine 1%) 3 ml STK-MED ONCE .ROUTE ; Start 07/21/19 a t 08:39; Stop 07/21/19 at 08:39; Status DC Lidocaine HCl (Buffered Lidocaine 1%) 6 ml 1X ONCE INJ Last administered on 07/21/19at 09:05; Start 07/21/19 at 09:00; Stop 07/21/19 at 09:06; Status DC Sodium Chloride 90 meq/Potassium Chloride 15 meq/ Potassium Phosphate 18 mmol/ Magnesium Sulfate 8 meq/Calcium Gluconate 15 meq/ Multivitamins 10 ml/Chromium/ Copper/Manganese/ Seleni/Zn 0.5 ml/ Insulin Human Regular 20 unit/ Total Parenteral Nutrition/Amino Acids/Dextrose/ Fat Emulsion Intravenous 1,400 ml @ 58.333 mls/ hr TPN CONT IV Last administered on 07/21/19at 22:45; Start 07/21/19 at 22:00; Stop 07/22/19 at 21:59; Status DC Sodium Chloride 1,000 ml @ 1,000 mls/hr Q1H PRN IV hypotension; Start 07/22/19 at 07:30; Stop 07/22/19 at 13:29; Status DC Albumin Human 200 ml @ 200 mls/hr 1X PRN PRN IV Hypotension Last administered on 07/22/19at 09:36; Start 07/22/19 at 07:30; Stop 07/22/19 at 13:29; Status DC Sodium Chloride (Normal Saline Flush) 10 ml 1X PRN PRN IV AP catheter pack; Start 07/22/19 at 07:30; Stop 07/22/19 at 21:29; Status DC Sodium Chloride (Normal Saline Flush) 10 ml 1X PRN PRN IV CLINICAL SOCIOLOGIST catheter pack; Start 07/22/19 at 07:30; Stop 07/23/19 at 07:29; Status DC Sodium Chloride 1,000 ml @ 400 mls/hr Q2H30M PRN IV PATENCY; Start 07/22/19 at 07:30; Stop 07/22/19 at 19:29; Status DC Info (PHARMACY MONITORING -- do not chart) 1 each PRN DAILY PRN MC SEE COMMENTS; Start 07/22/19 at 07:30; Stop 07/22/19 at 13:02; Status DC Info (PHARMACY MONITORING -- do not chart) 1 each PRN DAILY PRN MC SEE COMMENTS; Start 07/22/19 at 07:30; Stop 07/24/19 at 12:45; Status DC Sodium Chloride 90 meq/Potassium Chloride 15 meq/ Potassium Phosphate 10 mmol/ Magnesium Sulfate 8 meq/Calcium Gluconate 15 meq/ Multivitamins 10 ml/Chromium/ Copper/Manganese/ Seleni/Zn 0.5 ml/ Insulin Human Regular 25 unit/ Total Parenteral Nutrition/Amino Acids/Dextrose/ Fat Emulsion Intravenous 1,400 ml @ 58.333 mls/ hr TPN CONT IV Last administered on 07/22/19at 22:19; Start 07/22/19 at 22:00; Stop 07/23/19 at 21:59; Status DC Heparin Sodium (Porcine) (Heparin Sodium) 5,000 unit Q12HR SQ Last administered on 08/04/19at 21:10; Start 07/22/19 at 21:00 Ondansetron HCl (Zofran) 4 mg PRN Q6HRS PRN IV NAUSEA/VOMITING; Start 07/25/19 at 07:00; Stop 07/26/19 at 06:59; Status DC Fentanyl Citrate (Fentanyl 2ml Vial) 25 mcg PRN Q5MIN PRN IV MILD PAIN 1-3; Start 07/25/19 at 07:00; Stop 07/26/19 at 06:59; Status DC Fentanyl Citrate (Fentanyl 2ml Vial) 50 mcg PRN Q5MIN PRN IV MODERATE TO SEVERE PAIN; Start 07/25/19 at 07:00; Stop 07/26/19 at 06:59; Status DC Ringer's Solution 1,000 ml @ 30 mls/hr Q24H IV ; Start 07/25/19 at 07:00; Stop 07/25/19 at 18:59; Status DC Lidocaine HCl (Xylocaine-Mpf 1% 2ml Vial) 2 ml PRN 1X PRN ID PRIOR TO IV START; Start 07/25/19 at 07:00; Stop 07/26/19 at 06:59; Status DC Prochlorperazine Edisylate (Compazine) 5 mg PACU PRN PRN IV NAUSEA, MRX1; Start 07/25/19 at 07:00; Stop 07/26/19 at 06:59; Status DC Sodium Chloride 1,000 ml @ 1,000 mls/hr Q1H PRN IV hypotension; Start 07/23/19 at 09:10; Stop 07/23/19 at 15:09; Status DC Albumin Human 200 ml @ 200 mls/hr 1X PRN PRN IV Hypotension Last administered on 07/23/19at 10:10; Start 07/23/19 at 09:15; Stop 07/23/19 at 15:14; Status DC Sodium Chloride 1,000 ml @ 400 mls/hr Q2H30M PRN IV PATENCY; Start 07/23/19 at 09:10; Stop 07/23/19 at 21:09; Status DC Info (PHARMACY MONITORING -- do not chart) 1 each PRN DAILY PRN MC SEE COMMENTS; Start 07/23/19 at 09:15; Stop 07/24/19 at 12:45; Status DC Info (PHARMACY MONITORING -- do not chart) 1 each PRN DAILY PRN MC SEE COMMENTS; Start 07/23/19 at 09:15; Stop 07/24/19 at 12:45; Status DC Sodium Chloride 90 meq/Potassium Chloride 15 meq/ Potassium Phosphate 10 mmol/ Magnesium Sulfate 8 meq/Calcium Gluconate 15 meq/ Multivitamins 10 ml/Chromium/ Copper/Manganese/ Seleni/Zn 0.5 ml/ Insulin Human Regular 25 unit/ Total Pare nteral Nutrition/Amino Acids/Dextrose/ Fat Emulsion Intravenous 1,400 ml @ 58.333 mls/ hr TPN CONT IV Last administered on 07/23/19at 22:10; Start 07/23/19 at 22:00; Stop 07/24/19 at 21:59; Status DC Magnesium Sulfate 50 ml @ 25 mls/hr PRN DAILY PRN IV for Mag < 1.7 on am labs; Start 07/24/19 at 09:15 Sodium Chloride 90 meq/Potassium Chloride 15 meq/ Potassium Phosphate 10 mmol/ Magnesium Sulfate 8 meq/Calcium Gluconate 15 meq/ Multivitamins 10 ml/Chromium/ Copper/Manganese/ Seleni/Zn 0.5 ml/ Insulin Human Regular 25 unit/ Total Parenteral Nutrition/Amino Acids/Dextrose/ Fat Emulsion Intravenous 1,400 ml @ 58.333 mls/ hr TPN CONT IV Last administered on 07/24/19at 21:20; Start 07/24/19 at 22:00; Stop 07/25/19 at 21:59; Status DC Sodium Chloride 1,000 ml @ 1,000 mls/hr Q1H PRN IV hypotension; Start 07/24/19 at 12:23; Stop 07/24/19 at 18:22; Status DC Albumin Human 200 ml @ 200 mls/hr 1X ONCE IV Last administered on 07/24/19at 13:34; Start 07/24/19 at 12:30; Stop 07/24/19 at 13:29; Status DC Diphenhydramine HCl (Benadryl) 25 mg 1X PRN PRN IV ITCHING; Start 07/24/19 at 12:30; Stop 07/25/19 at 12:29; Status DC Diphenhydramine HCl (Benadryl) 25 mg 1X PRN PRN IV ITCHING; Start 07/24/19 at 12:30; Stop 07/25/19 at 12:29; Status DC Info (PHARMACY MONITORING -- do not chart) 1 each PRN DAILY PRN MC SEE COMMENTS; Start 07/24/19 at 12:30; Status Cancel Bupivacaine HCl/ Epinephrine Bitart (Sensorcain-Epi 0.5%-1:[id number] Mpf) 30 ml STK-MED ONCE .ROUTE Last administered on 07/25/19at 11:44; Start 07/25/19 at 11:00; Stop 07/25/19 at 11:01; Status DC Cellulose (Surgicel Fibrillar 1x2) 1 each STK-MED ONCE .ROUTE ; Start 07/25/19 at 11:00; Stop 07/25/19 at 11:01; Status DC Sodium Chloride 90 meq/Potassium Chloride 15 meq/ Potassium Phosphate 10 mmol/ Magnesium Sulfate 12 meq/Calcium Gluconate 15 meq/ Multivitamins 10 ml/Chromium/ Copper/Manganese/ Seleni/Zn 0.5 ml/ Insulin Human Regular 25 unit/ Total Parenteral Nutrition/Amino Acids/Dextrose/ Fat Emulsion Intravenous 1,400 ml @ 58.333 mls/ hr TPN CONT IV Last administered on 07/25/19at 22:24; Start 07/25/19 at 22:00; Stop 07/26/19 at 21:59; Status DC Propofol 20 ml @ As Directed STK-MED ONCE IV ; Start 07/25/19 at 11:07; Stop 07/25/19 at 11:07; Status DC Cellulose (Surgicel Hemostat 4x8) 1 each STK-MED ONCE .ROUTE Last administered on 07/25/19at 11:44; Start 07/25/19 at 11:55; Stop 07/25/19 at 11:56; Status DC Sevoflurane (Ultane) 60 ml STK-MED ONCE IH ; Start 07/25/19 at 12:46; Stop 07/25/19 at 12:46; Status DC Sodium Chloride 1,000 ml @ 1,000 mls/hr Q1H PRN IV hypotension; Start 07/25/19 at 13:51; Stop 07/25/19 at 19:50; Status DC Albumin Human 200 ml @ 200 mls/hr 1X PRN PRN IV Hypotension Last administered on 07/25/19at 14:51; Start 07/25/19 at 14:00; Stop 07/25/19 at 19:59; Status DC Diphenhydramine HCl (Benadryl) 25 mg 1X PRN PRN IV ITCHING; Start 07/25/19 at 14:00; Stop 07/26/19 at 13:59; Status DC Diphenhydramine HCl (Benadryl) 25 mg 1X PRN PRN IV ITCHING; Start 07/25/19 at 14:00; Stop 07/26/19 at 13:59; Status DC Sodium Chloride 1,000 ml @ 400 mls/hr Q2H30M PRN IV PATENCY; Start 07/25/19 at 13:51; Stop 07/26/19 at 01:50; Status DC Info (PHARMACY MONITORING -- do not chart) 1 each PRN DAILY PRN MC SEE COMMENTS; Start 07/25/19 at 14:00; Stop 07/28/19 at 08:16; Status DC Heparin Sodium (Porcine) (Hep Lock Adult) 500 unit STK-MED ONCE IVP ; Start 07/26/19 at 09:29; Stop 07/26/19 at 09:30; Status DC Sodium Chloride 1,000 ml @ 1,000 mls/hr Q1H PRN IV hypotension; Start 07/26/19 at 10:43; Stop 07/26/19 at 16:42; Status DC Sodium Chloride 1,000 ml @ 400 mls/hr Q2H30M PRN IV PATENCY; Start 07/26/19 at 10:43; Stop 07/26/19 at 22:42; Status DC Info (PHARMACY MONITORING -- do not chart) 1 each PRN DAILY PRN MC SEE COMMENTS; Start 07/26/19 at 10:45; Status UNV Info (PHARMACY MONITORING -- do not chart) 1 each PRN DAILY PRN MC SEE COMMENTS; Start 07/26/19 at 10:45; Status UNV Sodium Chloride 90 meq/Potassium Chloride 15 meq/ Magnesium Sulfate 12 meq/Calcium Gluconate 15 meq/ Multivitamins 10 ml/Chromium/ Copper/Manganese/ Seleni/Zn 0.5 ml/ Insulin Human Regular 25 unit/ Total Parenteral Nutrition/Amino Acids/Dextrose/ Fat Emulsion Intravenous 1,400 ml @ 58.333 mls/ hr TPN CONT IV Last administered on 07/26/19at 22:13; Start 07/26/19 at 22:00; Stop 07/27/19 at 21:59; Status DC Sodium Chloride 1,000 ml @ 1,000 mls/hr Q1H PRN IV hypotension; Start 07/27/19 at 07:50; Stop 07/27/19 at 13:49; Status DC Albumin Human 200 ml @ 200 mls/hr 1X ONCE IV ; Start 07/27/19 at 08:00; Stop 07/27/19 at 08:53; Status DC Diphenhydramine HCl (Benadryl) 25 mg 1X PRN PRN IV ITCHING; Start 07/27/19 at 08:00; Stop 07/28/19 at 07:59; Status DC Diphenhydramine HCl (Benadryl) 25 mg 1X PRN PRN IV ITCHING; Start 07/27/19 at 08:00; Stop 07/28/19 at 07:59; Status DC Info (PHARMACY MONITORING -- do not chart) 1 each PRN DAILY PRN MC SEE COMMENTS; Start 07/27/19 at 08:00; Stop 07/28/19 at 08:16; Status DC Albumin Human 50 ml @ 50 mls/hr 1X ONCE IV ; Start 07/27/19 at 08:53; Stop 07/27/19 at 08:56; Status DC Albumin Human 200 ml @ 50 mls/hr PRN 1X PRN IV HYPOTENSION Last administered on 08/02/19at 11:54; Start 07/27/19 at 09:00 Meropenem 500 mg/ Sodium Chloride 50 ml @ 100 mls/hr Q12H IV Last administered on 08/04/19at 23:04; Start 07/27/19 at 10:00 Sodium Chloride 90 meq/Magnesium Sulfate 12 meq/ Calcium Gluconate 15 meq/ Multivitamins 10 ml/Chromium/ Copper/Manganese/ Seleni/Zn 0.5 ml/ Insulin Human Regular 25 unit/ Total Parenteral Nutrition/Amino Acids/Dextrose/ Fat Emulsion Intravenous 1,400 ml @ 58.333 mls/ hr TPN CONT IV Last administered on 07/27/19at 21:41; Start 07/27/19 at 22:00; Stop 07/28/19 at 21:59; Status DC Sodium Chloride 1,000 ml @ 1,000 mls/hr Q1H PRN IV hypotension; Start 07/28/19 at 07:58; Stop 07/28/19 at 13:57; Status DC Albumin Human 200 ml @ 200 mls/hr 1X PRN PRN IV Hypotension Last administered on 07/28/19at 09:30; Start 07/28/19 at 08:00; Stop 07/28/19 at 13:59; Status DC Sodium Chloride 1,000 ml @ 400 mls/hr Q2H30M PRN IV PATENCY; Start 07/28/19 at 07:58; Stop 07/28/19 at 19:57; Status DC Info (PHARMACY MONITORING -- do not chart) 1 each PRN DAILY PRN MC SEE COMMENTS; Start 07/28/19 at 08:00; Status Cancel Info (PHARMACY MONITORING -- do not chart) 1 each PRN DAILY PRN MC SEE COMMENTS; Start 07/28/19 at 08:15; Status UNV Sodium Chloride 90 meq/Potassium Phosphate 5 mmol/ Magnesium Sulfate 12 meq/Calcium Gluconate 15 meq/ Multivitamins 10 ml/Chromium/ Copper/Manganese/ Seleni/Zn 0.5 ml/ Insulin Human Regular 30 unit/ Total Parenteral Nutrition/Amino Acids/Dextrose/ Fat Emulsion Intravenous 1,400 ml @ 58.333 mls/ hr TPN CONT IV Last administered on 07/28/19at 22:08; Start 07/28/19 at 22:00; Stop 07/29/19 at 21:59; Status DC Linezolid/Dextrose 300 ml @ 300 mls/hr Q12HR IV Last administered on 08/04/19at 21:09; Start 07/29/19 at 11:00 Sodium Chloride 90 meq/Potassium Phosphate 15 mmol/ Magnesium Sulfate 12 meq/Calcium Gluconate 15 meq/ Multivitamins 10 ml/Chromium/ Copper/Manganese/ Seleni/Zn 0.5 ml/ Insulin Human Regular 30 unit/ Total Parenteral Nutrition/Amino Acids/Dextrose/ Fat Emulsion Intravenous 1,400 ml @ 58.333 mls/ hr TPN CONT IV Last administered on 07/29/19at 21:49; Start 07/29/19 at 22:00; Stop 07/30/19 at 21:59; Status DC Sodium Chloride 90 meq/Potassium Phosphate 15 mmol/ Magnesium Sulfate 12 meq/Calcium Gluconate 15 meq/ Multivitamins 10 ml/Chromium/ Copper/Manganese/ Seleni/Zn 0.5 ml/ Insulin Human Regular 40 unit/ Total Parenteral Nutrition/Amino Acids/Dextrose/ Fat Emulsion Intravenous 1,400 ml @ 58.333 mls/ hr TPN CONT IV Last administered on 07/30/19at 21:21; Start 07/30/19 at 22:00; Stop 07/31/19 at 21:59; Status DC Sodium Chloride 1,000 ml @ 1,000 mls/hr Q1H PRN IV hypotension; Start 07/30/19 at 13:26; Stop 07/30/19 at 19:25; Status DC Albumin Human 200 ml @ 200 mls/hr 1X PRN PRN IV Hypotension Last administered on 07/30/19at 15:00; Start 07/30/19 at 13:30; Stop 07/30/19 at 19:29; Status DC Sodium Chloride (Normal Saline Flush) 10 ml 1X PRN PRN IV AP catheter pack; Start 07/30/19 at 13:30; Stop 07/31/19 at 13:29; Status DC Sodium Chloride (Normal Saline Flush) 10 ml 1X PRN PRN IV CLINICAL SOCIOLOGIST catheter pack; Start 07/30/19 at 13:30; Stop 07/31/19 at 13:29; Status DC Sodium Chloride 1,000 ml @ 400 mls/hr Q2H30M PRN IV PATENCY; Start 07/30/19 at 13:26; Stop 07/31/19 at 01:25; Status DC Info (PHARMACY MONITORING -- do not chart) 1 each PRN DAILY PRN MC SEE COMMENTS; Start 07/30/19 at 13:30; Stop 07/30/19 at 13:33; Status DC Info (PHARMACY MONITORING -- do not chart) 1 each PRN DAILY PRN MC SEE COMMENTS; Start 07/30/19 at 13:30; Stop 07/30/19 at 13:34; Status DC Sodium Chloride 90 meq/Potassium Phosphate 19 mmol/ Magnesium Sulfate 12 meq/Calcium Gluconate 15 meq/ Multivitamins 10 ml/Chromium/ Copper/Manganese/ Seleni/Zn 0.5 ml/ Insulin Human Regular 40 unit/ Total Parenteral Nutrition/Amino Acids/Dextrose/ Fat Emulsion Intravenous 1,400 ml @ 58.333 mls/ hr TPN CONT IV Last administered on 07/31/19at 21:54; Start 07/31/19 at 22:00; Stop 08/01/19 at 21:59; Status DC Sodium Chloride 1,000 ml @ 1,000 mls/hr Q1H PRN IV hypotension; Start 08/01/19 at 09:35; Stop 08/01/19 at 15:34; Status DC Albumin Human 200 ml @ 200 mls/hr 1X PRN PRN IV Hypotension; Start 08/01/19 at 09:45; Stop 08/01/19 at 15:44; Status DC Diphenhydramine HCl (Benadryl) 25 mg 1X PRN PRN IV ITCHING; Start 08/01/19 at 09:45; Stop 08/02/19 at 09:44; Status DC Diphenhydramine HCl (Benadryl) 25 mg 1X PRN PRN IV ITCHING; Start 08/01/19 at 09:45; Stop 08/02/19 at 09:44; Status DC Sodium Chloride 1,000 ml @ 400 mls/hr Q2H30M PRN IV PATENCY; Start 08/01/19 at 09:35; Stop 08/01/19 at 21:34; Status DC Info (PHARMACY MONITORING -- do not chart) 1 each PRN DAILY PRN MC SEE COMMENTS; Start 08/01/19 at 09:45; Status Cancel Sodium Chloride 100 meq/Potassium Phosphate 19 mmol/ Magnesium Sulfate 12 meq/Calcium Gluconate 15 meq/ Multivitamins 10 ml/Chromium/ Copper/Manganese/ Seleni/Zn 0.5 ml/ Insulin Human Regular 40 unit/ Potassium Chloride 20 meq/ Total Parenteral Nutrition/Amino Acids/Dextrose/ Fat Emulsion Intravenous 1,400 ml @ 58.333 mls/ hr TPN CONT IV Last administered on 08/01/19at 22:02; Start 08/01/19 at 22:00; Stop 08/02/19 at 21:59; Status DC Furosemide (Lasix) 40 mg 1X ONCE IVP Last administered on 08/01/19at 14:39; Start 08/01/19 at 14:30; Stop 08/01/19 at 14:31; Status DC Metronidazole 100 ml @ 100 mls/hr Q8HRS IV Last administered on 08/05/19at 0 6:07; Start 08/02/19 at 10:00 Sodium Chloride 1,000 ml @ 1,000 mls/hr Q1H PRN IV hypotension; Start 08/02/19 at 08:00; Stop 08/02/19 at 13:59; Status DC Albumin Human 200 ml @ 200 mls/hr 1X PRN PRN IV Hypotension; Start 08/02/19 at 08:00; Stop 08/02/19 at 13:59; Status DC Sodium Chloride 1,000 ml @ 400 mls/hr Q2H30M PRN IV PATENCY; Start 08/02/19 at 08:00; Stop 08/02/19 at 19:59; Status DC Info (PHARMACY MONITORING -- do not chart) 1 each PRN DAILY PRN MC SEE COMMENTS; Start 08/02/19 at 11:30; Status UNV Info (PHARMACY MONITORING -- do not chart) 1 each PRN DAILY PRN MC SEE COMMENTS; Start 08/02/19 at 11:30; Stop 08/04/19 at 12:13; Status DC Sodium Chloride 100 meq/Potassium Phosphate 19 mmol/ Magnesium Sulfate 12 meq/Calcium Gluconate 15 meq/ Multivitamins 10 ml/Chromium/ Copper/Manganese/ Seleni/Zn 0.5 ml/ Insulin Human Regular 40 unit/ Potassium Chloride 20 meq/ Total Parenteral Nutrition/Amino Acids/Dextrose/ Fat Emulsion Intravenous 1,400 ml @ 58.333 mls/ hr TPN CONT IV Last administered on 08/02/19at 21:52; Start 08/02/19 at 22:00; Stop 08/03/19 at 21:59; Status DC Sodium Chloride (Normal Saline Flush) 10 ml QSHIFT PRN IV AFTER MEDS AND BLOOD DRAWS; Start 08/02/19 at 15:00 Sodium Chloride (Normal Saline Flush) 10 ml PRN Q5MIN PRN IV AFTER MEDS AND BLOOD DRAWS; Start 08/02/19 at 15:00 Sodium Chloride (Normal Saline Flush) 20 ml PRN Q5MIN PRN IV AFTER MEDS AND BLOOD DRAWS; Start 08/02/19 at 15:00 Sodium Chloride 100 meq/Potassium Phosphate 19 mmol/ Magnesium Sulfate 12 meq/Calcium Gluconate 15 meq/ Multivitamins 10 ml/Chromium/ Copper/Manganese/ Seleni/Zn 0.5 ml/ Insulin Human Regular 40 unit/ Potassium Chloride 20 meq/ Total Parenteral Nutrition/Amino Acids/Dextrose/ Fat Emulsion Intravenous 1,400 ml @ 58.333 mls/ hr TPN CONT IV Last administered on 08/03/19at 21:20; Start 08/03/19 at 22:00; Stop 08/04/19 at 21:59; Status DC Lidocaine HCl (Buffered Lidocaine 1%) 3 ml STK-MED ONCE .ROUTE ; Start 08/03/19 at 13:16; Stop 08/03/19 at 13:16; Status DC Lidocaine HCl (Buffered Lidocaine 1%) 6 ml 1X ONCE INJ Last administered on 08/03/19at 13:45; Start 08/03/19 at 13:30; Stop 08/03/19 at 13:31; Status DC Albumin Human 100 ml @ 100 mls/hr 1X ONCE IV Last administered on 08/03/19at 15:41; Start 08/03/19 at 15:00; Stop 08/03/19 at 15:59; Status DC Albumin Human 50 ml @ 50 mls/hr 1X ONCE IV Last administered on 08/03/19at 15:00; Start 08/03/19 at 15:00; Stop 08/03/19 at 15:59; Status DC Info (PHARMACY MONITORING -- do not chart) 1 each PRN DAILY PRN MC SEE COMMENTS; Start 08/04/19 at 11:30 Info (PHARMACY MONITORING -- do not chart) 1 each PRN DAILY PRN MC SEE COMMENTS; Start 08/04/19 at 11:30; Status UNV Sodium Chloride 100 meq/Potassium Phosphate 10 mmol/ Magnesium Sulfate 12 meq/Calcium Gluconate 15 meq/ Multivitamins 10 ml/Chromium/ Copper/Manganese/ Seleni/Zn 0.5 ml/ Insulin Human Regular 35 unit/ Potassium Chloride 20 meq/ Total Parenteral Nutrition/Amino Acids/Dextrose/ Fat Emulsion Intravenous 1,400 ml @ 58.333 mls/ hr TPN CONT IV Last administered on 08/04/19at 22:10; Start 08/04/19 at 22:00; Stop 08/05/19 at 21:59 Active Scripts Active Reported Bisoprolol Fumarate 5 Mg Tablet 10 Mg PO DAILY Vitals/I & O Vital Sign - Last 24 Hours 08/04/19 08/04/19 08/04/19 08/04/19 09:00 11:58 13:07 14:15 Temp 100.8 100.8 Pulse 82 Resp 24 22 B/P (MAP) 154/81 (105) 140/85 (103) Pulse Ox 100 99 99 O2 Delivery Ventilator Ventilator Ventilator 08/04/19 08/04/19 08/04/19 08/04/19 15:00 15:30 15:49 16:00 Pulse 76 79 Resp 21 20 B/P (MAP) 100/54 (69) 77/49 (58) Pulse Ox 100 O2 Delivery Ventilator Ventilator Ventilator Mechanical Ventilator 08/04/19 08/04/19 08/04/19 08/04/19 16:00 16:00 17:00 19:00 Pulse 66 82 Resp 18 22 B/P (MAP) 113/66 (82) 114/64 (81) Pulse Ox 99 O2 Delivery Mechanical Ventilator Ventilator Ventilator Ventilator 08/04/19 08/04/19 08/04/19 08/04/19 20:00 20:00 20:00 21:00 Temp 101.8 101.8 Pulse 96 Resp 24 18 B/P (MAP) 141/81 (101) 91/49 (63) Pulse Ox 100 99 100 O2 Delivery Ventilator Mechanical Ventilator Ventilator Ventilator 08/04/19 08/04/19 08/04/19 08/05/19 22:00 22:05 23:01 00:00 Pulse 81 80 Resp 18 18 B/P (MAP) 115/68 (84) 101/58 (72) Pulse Ox 100 100 100 O2 Delivery Ventilator Ventilator Ventilator Mechanical Ventilator 08/05/19 08/05/19 08/05/19 08/05/19 00:00 01:00 01:40 02:00 Temp 100.9 100.9 Pulse 82 81 84 Resp 20 18 18 B/P (MAP) 102/71 (81) 104/67 (79) 115/63 (80) Pulse Ox 99 99 100 99 O2 Delivery Ventilator Ventilator Ventilator Ventilator 08/05/19 08/05/19 08/05/19 08/05/19 03:00 03:31 04:00 04:00 Temp 98.1 98.1 Pulse 88 91 Resp 18 18 B/P (MAP) 119/69 (86) 122/70 (87) Pulse Ox 99 100 99 O2 Delivery Ventilator Ventilator Mechanical Ventilator Ventilator 08/05/19 08/05/19 08/05/19 05:00 05:33 06:00 Pulse 83 80 Resp 18 18 B/P (MAP) 108/59 (75) 174/82 (112) Pulse Ox 100 100 100 O2 Delivery Ventilator Ventilator Ventilator Intake and Output 08/04/19 08/04/19 08/05/19 15:00 23:00 07:00 Intake Total 2202 ml 1102.2 ml Output Total 250 ml 485 ml 350 ml Balance -250 ml 1717 ml 752.2 ml Hemodynamically unstable?: No Is patient in severe pain?: No Is NPO status required?: No DAVIN LANDEROS MD Aug 05, 2019 09:04
--- NOTE | 2019-08-05 09:20 | PDOC ---
PULMONARY PROGRESS NOTES Subjective Patient intubated on 07/10 , s/p trach AC mode awake and alert today, S/P paracentisis with 4 liters removed on 08/03/19 Plan for PS today Vitals Vital Signs Date Time Temp Pulse Resp B/P (MAP) Pulse Ox O2 Delivery O2 Flow Rate FiO2 08/05/19 07:37 100 Ventilator 08/05/19 06:00 80 18 174/82 (112) 08/05/19 04:00 98.1 98.1 ROS: No Nausea, No Chest Pain, No Abdominal Pain, No Increase Cough General: Alert Lungs: Other (dimished in BLL) Cardiovascular: S1, S2 Abdomen: Non-tender, Other (distended) Extremities: Other (+3 generalized edema ) Skin: Warm, Dry Labs Laboratory Tests Test 08/03/19 11:57 08/03/19 12:35 08/03/19 23:48 08/04/19 06:15 Glucose (Fingerstick) 164 mg/dL (70-99) 158 mg/dL (70-99) Prothrombin Time 15.6 SEC (11.7-14.0) Prothromb Time International Ratio 1.3 (0.8-1.1) Sodium Level 139 mmol/L (136-145) Potassium Level 3.9 mmol/L (3.5-5.1) Chloride Level 102 mmol/L (98-107) Carbon Dioxide Level 25 mmol/L (21-32) Anion Gap 12 (6-14) Blood Urea Nitrogen 88 mg/dL (7-20) Creatinine 1.8 mg/dL (0.6-1.0) Estimated GFR (Cockcroft-Gault) 29.9 Glucose Level 120 mg/dL (70-99) Calcium Level 9.1 mg/dL (8.5-10.1) Phosphorus Level 5.1 mg/dL (2.6-4.7) Magnesium Level 2.0 mg/dL (1.8-2.4) Test 08/04/19 06:18 08/04/19 08:00 08/04/19 10:00 08/04/19 19:31 Glucose (Fingerstick) 106 mg/dL (70-99) 142 mg/dL (70-99) O2 Saturation 97 % (92-99) Arterial Blood pH 7.45 (7.35-7.45) Arterial Blood pH (Temp corrected) 7.43 Arterial Blood pCO2 at Patient Temp 33 mmHg (35-46) Arterial Blood pCO2 (Temp correct) 35 mmHg Arterial Blood pO2 at Patient Temp 103 mmHg (75-108) Arterial Blood pO2 (Temp corrected) 114 mmHg Arterial Blood HCO3 22 mmol/L (21-28) Arterial Blood Base Excess -1 mmol/L (-3-3) FiO2 35% vent White Blood Count 9.2 x10^3/uL (4.0-11.0) Red Blood Count 2.76 x10^6/uL (3.50-5.40) Hemoglobin 8.9 g/dL (12.0-15.5) Hematocrit 26.5 % (36.0-47.0) Mean Corpuscular Volume 96 fL (79-100) Mean Corpuscular Hemoglobin 32 pg (25-35) Mean Corpuscular Hemoglobin Concent 33 g/dL (31-37) Red Cell Distribution Width 18.9 % (11.5-14.5) Platelet Count 530 x10^3/uL (140-400) Neutrophils (%) (Auto) 66 % (31-73) Lymphocytes (%) (Auto) 21 % (24-48) Monocytes (%) (Auto) 12 % (0-9) Eosinophils (%) (Auto) 0 % (0-3) Basophils (%) (Auto) 1 % (0-3) Neutrophils # (Auto) 6.1 x10^3/uL (1.8-7.7) Lymphocytes # (Auto) 2.0 x10^3/uL (1.0-4.8) Monocytes # (Auto) 1.1 x10^3/uL (0.0-1.1) Eosinophils # (Auto) 0.0 x10^3/uL (0.0-0.7) Basophils # (Auto) 0.0 x10^3/uL (0.0-0.2) Test 08/04/19 23:53 08/05/19 06:00 08/05/19 06:06 08/05/19 07:00 Glucose (Fingerstick) 145 mg/dL (70-99) 129 mg/dL (70-99) Sodium Level 140 mmol/L (136-145) Potassium Level 3.7 mmol/L (3.5-5.1) Chloride Level 103 mmol/L (98-107) Carbon Dioxide Level 26 mmol/L (21-32) Anion Gap 11 (6-14) Blood Urea Nitrogen 80 mg/dL (7-20) Creatinine 1.6 mg/dL (0.6-1.0) Estimated GFR (Cockcroft-Gault) 34.3 BUN/Creatinine Ratio 50 (6-20) Glucose Level 130 mg/dL (70-99) Calcium Level 8.4 mg/dL (8.5-10.1) Phosphorus Level 5.2 mg/dL (2.6-4.7) Total Bilirubin 0.4 mg/dL (0.2-1.0) Aspartate Amino Transf (AST/SGOT) 23 U/L (15-37) Alanine Aminotransferase (ALT/SGPT) 12 U/L (14-59) Alkaline Phosphatase 52 U/L (46-116) Total Protein 4.9 g/dL (6.4-8.2) Albumin 2.6 g/dL (3.4-5.0) Albumin/Globulin Ratio 1.1 (1.0-1.7) White Blood Count 5.8 x10^3/uL (4.0-11.0) Red Blood Count 2.40 x10^6/uL (3.50-5.40) Hemoglobin 7.6 g/dL (12.0-15.5) Hematocrit 22.8 % (36.0-47.0) Mean Corpuscular Volume 95 fL (79-100) Mean Corpuscular Hemoglobin 32 pg (25-35) Mean Corpuscular Hemoglobin Concent 33 g/dL (31-37) Red Cell Distribution Width 18.4 % (11.5-14.5) Platelet Count 498 x10^3/uL (140-400) Neutrophils (%) (Auto) 67 % (31-73) Lymphocytes (%) (Auto) 17 % (24-48) Monocytes (%) (Auto) 14 % (0-9) Eosinophils (%) (Auto) 1 % (0-3) Basophils (%) (Auto) 1 % (0-3) Neutrophils # (Auto) 3.9 x10^3/uL (1.8-7.7) Lymphocytes # (Auto) 1.0 x10^3/uL (1.0-4.8) Monocytes # (Auto) 0.8 x10^3/uL (0.0-1.1) Eosinophils # (Auto) 0.0 x10^3/uL (0.0-0.7) Basophils # (Auto) 0.0 x10^3/uL (0.0-0.2) Test 08/05/19 08:00 O2 Saturation 98 % (92-99) Arterial Blood pH 7.47 (7.35-7.45) Arterial Blood pCO2 at Patient Temp 33 mmHg (35-46) Arterial Blood pO2 at Patient Temp 136 mmHg (75-108) Arterial Blood HCO3 24 mmol/L (21-28) Arterial Blood Base Excess 0 mmol/L (-3-3) FiO2 35 Laboratory Tests Test 08/04/19 10:00 08/04/19 19:31 08/04/19 23:53 08/05/19 06:00 White Blood Count 9.2 x10^3/uL (4.0-11.0) Red Blood Count 2.76 x10^6/uL (3.50-5.40) Hemoglobin 8.9 g/dL (12.0-15.5) Hematocrit 26.5 % (36.0-47.0) Mean Corpuscular Volume 96 fL (79-100) Mean Corpuscular Hemoglobin 32 pg (25-35) Mean Corpuscular Hemoglobin Concent 33 g/dL (31-37) Red Cell Distribution Width 18.9 % (11.5-14.5) Platelet Count 530 x10^3/uL (140-400) Neutrophils (%) (Auto) 66 % (31-73) Lymphocytes (%) (Auto) 21 % (24-48) Monocytes (%) (Auto) 12 % (0-9) Eosinophils (%) (Auto) 0 % (0-3) Basophils (%) (Auto) 1 % (0-3) Neutrophils # (Auto) 6.1 x10^3/uL (1.8-7.7) Lymphocytes # (Auto) 2.0 x10^3/uL (1.0-4.8) Monocytes # (Auto) 1.1 x10^3/uL (0.0-1.1) Eosinophils # (Auto) 0.0 x10^3/uL (0.0-0.7) Basophils # (Auto) 0.0 x10^3/uL (0.0-0.2) Glucose (Fingerstick) 142 mg/dL (70-99) 145 mg/dL (70-99) Sodium Level 140 mmol/L (136-145) Potassium Level 3.7 mmol/L (3.5-5.1) Chloride Level 103 mmol/L (98-107) Carbon Dioxide Level 26 mmol/L (21-32) Anion Gap 11 (6-14) Blood Urea Nitrogen 80 mg/dL (7-20) Creatinine 1.6 mg/dL (0.6-1.0) Estimated GFR (Cockcroft-Gault) 34.3 BUN/Creatinine Ratio 50 (6-20) Glucose Level 130 mg/dL (70-99) Calcium Level 8.4 mg/dL (8.5-10.1) Phosphorus Level 5.2 mg/dL (2.6-4.7) Total Bilirubin 0.4 mg/dL (0.2-1.0) Aspartate Amino Transf (AST/SGOT) 23 U/L (15-37) Alanine Aminotransferase (ALT/SGPT) 12 U/L (14-59) Alkaline Phosphatase 52 U/L (46-116) Total Protein 4.9 g/dL (6.4-8.2) Albumin 2.6 g/dL (3.4-5.0) Albumin/Globulin Ratio 1.1 (1.0-1.7) Test 08/05/19 06:06 08/05/19 07:00 08/05/19 08:00 Glucose (Fingerstick) 129 mg/dL (70-99) White Blood Count 5.8 x10^3/uL (4.0-11.0) Red Blood Count 2.40 x10^6/uL (3.50-5.40) Hemoglobin 7.6 g/dL (12.0-15.5) Hematocrit 22.8 % (36.0-47.0) Mean Corpuscular Volume 95 fL (79-100) Mean Corpuscular Hemoglobin 32 pg (25-35) Mean Corpuscular Hemoglobin Concent 33 g/dL (31-37) Red Cell Distribution Width 18.4 % (11.5-14.5) Platelet Count 498 x10^3/uL (140-400) Neutrophils (%) (Auto) 67 % (31-73) Lymphocytes (%) (Auto) 17 % (24-48) Monocytes (%) (Auto) 14 % (0-9) Eosinophils (%) (Auto) 1 % (0-3) Basophils (%) (Auto) 1 % (0-3) Neutrophils # (Auto) 3.9 x10^3/uL (1.8-7.7) Lymphocytes # (Auto) 1.0 x10^3/uL (1.0-4.8) Monocytes # (Auto) 0.8 x10^3/uL (0.0-1.1) Eosinophils # (Auto) 0.0 x10^3/uL (0.0-0.7) Basophils # (Auto) 0.0 x10^3/uL (0.0-0.2) O2 Saturation 98 % (92-99) Arterial Blood pH 7.47 (7.35-7.45) Arterial Blood pCO2 at Patient Temp 33 mmHg (35-46) Arterial Blood pO2 at Patient Temp 136 mmHg (75-108) Arterial Blood HCO3 24 mmol/L (21-28) Arterial Blood Base Excess 0 mmol/L (-3-3) FiO2 35 Medications Active Scripts Medications Dose Route/Sig Max Daily Dose Days Date Category Bisoprolol Fumarate 5 Mg Tablet 10 Mg PO DAILY 07/04/19 Reported Impression . IMPRESSION: 1. Acute hypoxemic respiratory failure secondary to ARDS status post trach, 2. Gallstone pancreatitis.with NECROSIS, NOT A SURGICAL CANDIDATE 3. Severe metabolic acidosis.stable 4. Acute kidney injury-stable, ON HD-- continue to improve 5. Acute gallstone pancreatitis. 6. Hypoalbuminemia. 7. Moderate persistent effusions 8. Fever-resolved 9. Chronic anemia 10. Covid 19 testing negative 11. Moderate to large ascites-S/P paracentisis 1 Plan . Cont. ventilatory support, ABG reviewed 35%/PEEP 5 CPAP trial today if tolerates attempt t-shield -- need aggressive vent weaning Place back on A/C mod at HS Follow surgery recs Follow ID rec Follow nephrology recs Tolerated paracentesis well removed 4 liters on 4. continue TPN for nutrition DVT/GI PPX d/w RN/RT CC time : 30 minutes reviewing labs, patient care and discussing will care team VINAYAK LANDRUM MD Aug 05, 2019 09:20
--- NOTE | 2019-08-05 09:43 | PDOC ---
PROGRESS NOTES Assessment Problems Medical Problems: (1) Acute pancreatitis Status: Acute (2) Cholelithiasis Status: Acute Respiratory failure. Seizure. Metabolic encephalopathy. Fevers. Metabolic acidosis. Diffuse pulmonary infiltrate. Pleural effusion. Pancreatitis, necrotizing. Gallstone. Leukocytosis. Lymphopenia. Electrolytes imbalances. Hyperglycemia. DM. HTN. HLD. Anemia. Abnormal CXR. Obesity. Ascites and pleural effusion Plan Keppra if she has further seizures. Treat medical diseases. Subjective NG tube is uncomfortable Objective Vital Signs Date Time Temp Pulse Resp B/P (MAP) Pulse Ox O2 Delivery O2 Flow Rate FiO2 08/05/19 07:37 100 Ventilator 08/05/19 06:00 80 18 174/82 (112) 08/05/19 04:00 98.1 98.1 Intake and Output 08/05/19 07:00 Intake Total 3304.2 ml Output Total 1085 ml Balance 2219.2 ml IV Total 3304.2 ml Output Urine Total 1085 ml PHYSICAL EXAM Alert. Tracheostomy in place. Mouths replies. Tracks with her eyes, moves extremities to commands PERRL. EOMI. CN: no focal findings. Muscle tone: normal. Muscle strength: Moves all extremities, 3/5 strength in arms, 2/5 and legs DTR: 1+ Plantar reflex: Silent Gait: not examined in bed. Sensory exam: no abnormal findings. No cerebellar signs elicited. Review of Relevant I have reviewed the following items kolby (where applicable) has been applied. Labs Laboratory Tests Test 08/03/19 11:57 08/03/19 12:35 08/03/19 23:48 08/04/19 06:15 Glucose (Fingerstick) 164 mg/dL (70-99) 158 mg/dL (70-99) Prothrombin Time 15.6 SEC (11.7-14.0) Prothromb Time International Ratio 1.3 (0.8-1.1) Sodium Level 139 mmol/L (136-145) Potassium Level 3.9 mmol/L (3.5-5.1) Chloride Level 102 mmol/L (98-107) Carbon Dioxide Level 25 mmol/L (21-32) Anion Gap 12 (6-14) Blood Urea Nitrogen 88 mg/dL (7-20) Creatinine 1.8 mg/dL (0.6-1.0) Estimated GFR (Cockcroft-Gault) 29.9 Glucose Level 120 mg/dL (70-99) Calcium Level 9.1 mg/dL (8.5-10.1) Phosphorus Level 5.1 mg/dL (2.6-4.7) Magnesium Level 2.0 mg/dL (1.8-2.4) Test 08/04/19 06:18 08/04/19 08:00 08/04/19 10:00 08/04/19 19:31 Glucose (Fingerstick) 106 mg/dL (70-99) 142 mg/dL (70-99) O2 Saturation 97 % (92-99) Arterial Blood pH 7.45 (7.35-7.45) Arterial Blood pH (Temp corrected) 7.43 Arterial Blood pCO2 at Patient Temp 33 mmHg (35-46) Arterial Blood pCO2 (Temp correct) 35 mmHg Arterial Blood pO2 at Patient Temp 103 mmHg (75-108) Arterial Blood pO2 (Temp corrected) 114 mmHg Arterial Blood HCO3 22 mmol/L (21-28) Arterial Blood Base Excess -1 mmol/L (-3-3) FiO2 35% vent White Blood Count 9.2 x10^3/uL (4.0-11.0) Red Blood Count 2.76 x10^6/uL (3.50-5.40) Hemoglobin 8.9 g/dL (12.0-15.5) Hematocrit 26.5 % (36.0-47.0) Mean Corpuscular Volume 96 fL (79-100) Mean Corpuscular Hemoglobin 32 pg (25-35) Mean Corpuscular Hemoglobin Concent 33 g/dL (31-37) Red Cell Distribution Width 18.9 % (11.5-14.5) Platelet Count 530 x10^3/uL (140-400) Neutrophils (%) (Auto) 66 % (31-73) Lymphocytes (%) (Auto) 21 % (24-48) Monocytes (%) (Auto) 12 % (0-9) Eosinophils (%) (Auto) 0 % (0-3) Basophils (%) (Auto) 1 % (0-3) Neutrophils # (Auto) 6.1 x10^3/uL (1.8-7.7) Lymphocytes # (Auto) 2.0 x10^3/uL (1.0-4.8) Monocytes # (Auto) 1.1 x10^3/uL (0.0-1.1) Eosinophils # (Auto) 0.0 x10^3/uL (0.0-0.7) Basophils # (Auto) 0.0 x10^3/uL (0.0-0.2) Test 08/04/19 23:53 08/05/19 06:00 08/05/19 06:06 08/05/19 07:00 Glucose (Fingerstick) 145 mg/dL (70-99) 129 mg/dL (70-99) Sodium Level 140 mmol/L (136-145) Potassium Level 3.7 mmol/L (3.5-5.1) Chloride Level 103 mmol/L (98-107) Carbon Dioxide Level 26 mmol/L (21-32) Anion Gap 11 (6-14) Blood Urea Nitrogen 80 mg/dL (7-20) Creatinine 1.6 mg/dL (0.6-1.0) Estimated GFR (Cockcroft-Gault) 34.3 BUN/Creatinine Ratio 50 (6-20) Glucose Level 130 mg/dL (70-99) Calcium Level 8.4 mg/dL (8.5-10.1) Phosphorus Level 5.2 mg/dL (2.6-4.7) Total Bilirubin 0.4 mg/dL (0.2-1.0) Aspartate Amino Transf (AST/SGOT) 23 U/L (15-37) Alanine Aminotransferase (ALT/SGPT) 12 U/L (14-59) Alkaline Phosphatase 52 U/L (46-116) Total Protein 4.9 g/dL (6.4-8.2) Albumin 2.6 g/dL (3.4-5.0) Albumin/Globulin Ratio 1.1 (1.0-1.7) White Blood Count 5.8 x10^3/uL (4.0-11.0) Red Blood Count 2.40 x10^6/uL (3.50-5.40) Hemoglobin 7.6 g/dL (12.0-15.5) Hematocrit 22.8 % (36.0-47.0) Mean Corpuscular Volume 95 fL (79-100) Mean Corpuscular Hemoglobin 32 pg (25-35) Mean Corpuscular Hemoglobin Concent 33 g/dL (31-37) Red Cell Distribution Width 18.4 % (11.5-14.5) Platelet Count 498 x10^3/uL (140-400) Neutrophils (%) (Auto) 67 % (31-73) Lymphocytes (%) (Auto) 17 % (24-48) Monocytes (%) (Auto) 14 % (0-9) Eosinophils (%) (Auto) 1 % (0-3) Basophils (%) (Auto) 1 % (0-3) Neutrophils # (Auto) 3.9 x10^3/uL (1.8-7.7) Lymphocytes # (Auto) 1.0 x10^3/uL (1.0-4.8) Monocytes # (Auto) 0.8 x10^3/uL (0.0-1.1) Eosinophils # (Auto) 0.0 x10^3/uL (0.0-0.7) Basophils # (Auto) 0.0 x10^3/uL (0.0-0.2) Test 08/05/19 08:00 O2 Saturation 98 % (92-99) Arterial Blood pH 7.47 (7.35-7.45) Arterial Blood pCO2 at Patient Temp 33 mmHg (35-46) Arterial Blood pO2 at Patient Temp 136 mmHg (75-108) Arterial Blood HCO3 24 mmol/L (21-28) Arterial Blood Base Excess 0 mmol/L (-3-3) FiO2 35 Laboratory Tests Test 08/04/19 10:00 08/04/19 19:31 08/04/19 23:53 08/05/19 06:00 White Blood Count 9.2 x10^3/uL (4.0-11.0) Red Blood Count 2.76 x10^6/uL (3.50-5.40) Hemoglobin 8.9 g/dL (12.0-15.5) Hematocrit 26.5 % (36.0-47.0) Mean Corpuscular Volume 96 fL (79-100) Mean Corpuscular Hemoglobin 32 pg (25-35) Mean Corpuscular Hemoglobin Concent 33 g/dL (31-37) Red Cell Distribution Width 18.9 % (11.5-14.5) Platelet Count 530 x10^3/uL (140-400) Neutrophils (%) (Auto) 66 % (31-73) Lymphocytes (%) (Auto) 21 % (24-48) Monocytes (%) (Auto) 12 % (0-9) Eosinophils (%) (Auto) 0 % (0-3) Basophils (%) (Auto) 1 % (0-3) Neutrophils # (Auto) 6.1 x10^3/uL (1.8-7.7) Lymphocytes # (Auto) 2.0 x10^3/uL (1.0-4.8) Monocytes # (Auto) 1.1 x10^3/uL (0.0-1.1) Eosinophils # (Auto) 0.0 x10^3/uL (0.0-0.7) Basophils # (Auto) 0.0 x10^3/uL (0.0-0.2) Glucose (Fingerstick) 142 mg/dL (70-99) 145 mg/dL (70-99) Sodium Level 140 mmol/L (136-145) Potassium Level 3.7 mmol/L (3.5-5.1) Chloride Level 103 mmol/L (98-107) Carbon Dioxide Level 26 mmol/L (21-32) Anion Gap 11 (6-14) Blood Urea Nitrogen 80 mg/dL (7-20) Creatinine 1.6 mg/dL (0.6-1.0) Estimated GFR (Cockcroft-Gault) 34.3 BUN/Creatinine Ratio 50 (6-20) Glucose Level 130 mg/dL (70-99) Calcium Level 8.4 mg/dL (8.5-10.1) Phosphorus Level 5.2 mg/dL (2.6-4.7) Total Bilirubin 0.4 mg/dL (0.2-1.0) Aspartate Amino Transf (AST/SGOT) 23 U/L (15-37) Alanine Aminotransferase (ALT/SGPT) 12 U/L (14-59) Alkaline Phosphatase 52 U/L (46-116) Total Protein 4.9 g/dL (6.4-8.2) Albumin 2.6 g/dL (3.4-5.0) Albumin/Globulin Ratio 1.1 (1.0-1.7) Test 08/05/19 06:06 08/05/19 07:00 08/05/19 08:00 Glucose (Fingerstick) 129 mg/dL (70-99) White Blood Count 5.8 x10^3/uL (4.0-11.0) Red Blood Count 2.40 x10^6/uL (3.50-5.40) Hemoglobin 7.6 g/dL (12.0-15.5) Hematocrit 22.8 % (36.0-47.0) Mean Corpuscular Volume 95 fL (79-100) Mean Corpuscular Hemoglobin 32 pg (25-35) Mean Corpuscular Hemoglobin Concent 33 g/dL (31-37) Red Cell Distribution Width 18.4 % (11.5-14.5) Platelet Count 498 x10^3/uL (140-400) Neutrophils (%) (Auto) 67 % (31-73) Lymphocytes (%) (Auto) 17 % (24-48) Monocytes (%) (Auto) 14 % (0-9) Eosinophils (%) (Auto) 1 % (0-3) Basophils (%) (Auto) 1 % (0-3) Neutrophils # (Auto) 3.9 x10^3/uL (1.8-7.7) Lymphocytes # (Auto) 1.0 x10^3/uL (1.0-4.8) Monocytes # (Auto) 0.8 x10^3/uL (0.0-1.1) Eosinophils # (Auto) 0.0 x10^3/uL (0.0-0.7) Basophils # (Auto) 0.0 x10^3/uL (0.0-0.2) O2 Saturation 98 % (92-99) Arterial Blood pH 7.47 (7.35-7.45) Arterial Blood pCO2 at Patient Temp 33 mmHg (35-46) Arterial Blood pO2 at Patient Temp 136 mmHg (75-108) Arterial Blood HCO3 24 mmol/L (21-28) Arterial Blood Base Excess 0 mmol/L (-3-3) FiO2 35 Microbiology 08/02/19 Blood Culture - Preliminary, Resulted NO GROWTH AFTER 2 DAYS 07/31/19 Urine Culture - Final, Complete 07/31/19 Urine Culture Result 1 (ALEXANDRA) - Final, Complete Medications Current Medications Sodium Chloride 1,000 ml @ 1,000 mls/hr Q1H IV Last administered on 07/04/19at 03:00; Start 07/04/19 at 03:00; Stop 07/04/19 at 03:59; Status DC Ondansetron HCl (Zofran) 4 mg 1X ONCE IVP Last administered on 07/04/19at 03:27; Start 07/04/19 at 03:00; Stop 07/04/19 at 03:01; Status DC Morphine Sulfate (Morphine Sulfate) 4 mg 1X ONCE IV ; Start 07/04/19 at 03:00; Stop 07/04/19 at 03:01; Status Cancel Ketorolac Tromethamine (Toradol 30mg Vial) 30 mg 1X ONCE IV Last administered on 07/04/19at 02:54; Start 07/04/19 at 03:00; Stop 07/04/19 at 03:01; Status DC Fentanyl Citrate (Fentanyl 2ml Vial) 25 mcg 1X ONCE IVP Last administered on 07/04/19at 03:23; Start 07/04/19 at 03:30; Stop 07/04/19 at 03:31; Status DC Fentanyl Citrate (Fentanyl 2ml Vial) 100 mcg STK-MED ONCE .ROUTE ; Start 07/04/19 at 03:18; Stop 07/04/19 at 03:18; Status DC Iohexol (Omnipaque 350 Mg/ml) 90 ml 1X ONCE IV Last administered on 07/04/19at 03:25; Start 07/04/19 at 03:30; Stop 07/04/19 at 03:31; Status DC Info (CONTRAST GIVEN -- Rx MONITORING) 1 each PRN DAILY PRN MC SEE COMMENTS; Start 07/04/19 at 03:30; Stop 07/06/19 at 03:29; Status DC Hydromorphone HCl (Dilaudid) 0.5 mg 1X ONCE IV Last administered on 07/04/19at 03:55; Start 07/04/19 at 04:30; Stop 07/04/19 at 04:32; Status DC Ondansetron HCl (Zofran) 4 mg PRN Q8HRS PRN IV NAUSEA/VOMITING 1ST CHOICE; Start 07/04/19 at 05:00; Stop 07/04/19 at 09:27; Status DC Morphine Sulfate (Morphine Sulfate) 2 mg PRN Q2HR PRN IV SEVERE PAIN 7-10 Last administered on 07/05/19at 12:26; Start 07/04/19 at 05:00; Stop 07/05/19 at 14:15; Status DC Sodium Chloride 1,000 ml @ 125 mls/hr Q8H IV Last administered on 07/04/19at 20:56; Start 07/04/19 at 05:00; Stop 07/05/19 at 04:59; Status DC Hydromorphone HCl (Dilaudid) 0.5 mg PRN Q3HRS PRN IV SEVERE PAIN 7-10 Last administered on 07/05/19at 10:06; Start 07/04/19 at 05:00; Stop 07/05/19 at 12:01; Status DC Piperacillin Sod/ Tazobactam Sod 4.5 gm/Sodium Chloride 100 ml @ 200 mls/hr 1X ONCE IV Last administered on 07/04/19at 05:44; Start 07/04/19 at 06:00; Stop 07/04/19 at 06:29; Status DC Ondansetron HCl (Zofran) 4 mg PRN Q4HRS PRN IV NAUSEA/VOMITING 1ST CHOICE Last administered on 08/05/19at 03:51; Start 07/04/19 at 09:30 Insulin Human Lispro (HumaLOG) 0-9 UNITS Q6HRS SQ Last administered on 08/03/19at 23:50; Start 07/04/19 at 09:30 Dextrose (Dextrose 50%-Water Syringe) 12.5 gm PRN Q15MIN PRN IV SEE COMMENTS; Start 07/04/19 at 09:30 Pantoprazole Sodium (PROTONIX VIAL for IV PUSH) 40 mg DAILYAC IVP Last adminis tered on 08/04/19at 08:54; Start 07/04/19 at 11:30 Prochlorperazine Edisylate (Compazine) 10 mg PRN Q6HRS PRN IV NAUSEA/VOMITING, 2nd CHOICE Last administered on 07/05/19at 00:42; Start 07/04/19 at 17:45 Atenolol (Tenormin) 100 mg DAILY PO ; Start 07/05/19 at 09:00; Stop 07/04/19 at 20:08; Status DC Metoprolol Tartrate (Lopressor Vial) 2.5 mg Q6HRS IVP Last administered on 07/05/19at 05:51; Start 07/04/19 at 20:15; Stop 07/05/19 at 10:02; Status DC Metoprolol Tartrate (Lopressor Vial) 5 mg Q6HRS IVP Last administered on 07/14/19at 00:12; Start 07/05/19 at 10:15; Stop 07/16/19 at 08:48; Status DC Hydromorphone HCl (Dilaudid) 1 mg PRN Q3HRS PRN IV SEVERE PAIN 7-10 Last administered on 07/11/19at 05:13; Start 07/05/19 at 12:00; Stop 07/19/19 at 00:25; Status DC Lidocaine HCl (Buffered Lidocaine 1%) 3 ml STK-MED ONCE .ROUTE ; Start 07/05/19 at 12:55; Stop 07/05/19 at 12:56; Status DC Albumin Human 500 ml @ 125 mls/hr 1X ONCE IV Last administered on 07/05/19at 14:33; Start 07/05/19 at 14:30; Stop 07/05/19 at 18:32; Status DC Norepinephrine Bitartrate 8 mg/ Dextrose 258 ml @ 17.299 mls/ hr CONT PRN IV PER PROTOCOL Last administered on 08/02/19at 12:48; Start 07/05/19 at 15:30; Stop 08/05/19 at 09:19; Status DC Sodium Chloride 1,000 ml @ 125 mls/hr Q8H IV Last administered on 07/05/19at 21:04; Start 07/05/19 at 16:00; Stop 07/06/19 at 02:42; Status DC Albumin Human 500 ml @ 125 mls/hr PRN BID PRN IV After every 2L NSS & BP < 90mm Last administered on 07/20/19at 14:21; Start 07/05/19 at 16:00 Iohexol (Omnipaque 300 Mg/ml) 60 ml 1X ONCE IV Last administered on 07/05/19at 17:20; Start 07/05/19 at 17:00; Stop 07/05/19 at 17:01; Status DC Info (CONTRAST GIVEN -- Rx MONITORING) 1 each PRN DAILY PRN MC SEE COMMENTS; Start 07/05/19 at 17:00; Stop 07/07/19 at 16:59; Status DC Meropenem 1 gm/ Sodium Chloride 100 ml @ 200 mls/hr Q8HRS IV Last administered on 07/06/19at 05:45; Start 07/05/19 at 20:00; Stop 07/06/19 at 08:48; Status DC Furosemide (Lasix) 40 mg 1X ONCE IVP Last administered on 07/05/19at 22:12; Start 07/05/19 at 22:30; Stop 07/05/19 at 22:31; Status DC Calcium Chloride 1000 mg/Sodium Chloride 110 ml @ 220 mls/hr 1X ONCE IV Last administered on 07/05/19at 22:11; Start 07/05/19 at 22:30; Stop 07/05/19 at 22:59; Status DC Albuterol Sulfate (Ventolin Neb Soln) 2.5 mg 1X ONCE NEB Last administered on 07/06/19at 00:56; Start 07/05/19 at 22:30; Stop 07/05/19 at 22:31; Status DC Insulin Human Regular (HumuLIN R VIAL) 5 unit 1X ONCE IV Last administered on 07/05/19at 22:14; Start 07/05/19 at 22:30; Stop 07/05/19 at 22:31; Status DC Magnesium Sulfate 50 ml @ 25 mls/hr 1X ONCE IV Last administered on 07/06/19at 02:57; Start 07/06/19 at 03:00; Stop 07/06/19 at 04:59; Status DC Calcium Gluconate 1000 mg/Sodium Chloride 110 ml @ 220 mls/hr 1X ONCE IV Last administered on 07/06/19at 02:46; Start 07/06/19 at 03:00; Stop 07/06/19 at 03:29; Status DC Sodium Chloride 1,000 ml @ 200 mls/hr Q5H IV Last administered on 07/06/19at 02:46; Start 07/06/19 at 03:00; Stop 07/06/19 at 10:21; Status DC Calcium Gluconate 1000 mg/Sodium Chloride 110 ml @ 220 mls/hr 1X ONCE IV Last administered on 07/06/19at 03:21; Start 07/06/19 at 03:30; Stop 07/06/19 at 03:59; Status DC Sodium Bicarbonate 50 meq/Sodium Chloride 1,050 ml @ 75 mls/hr Q14H IV Last administered on 07/10/19at 21:10; Start 07/06/19 at 07:30; Stop 07/11/19 at 10:28; Status DC Calcium Gluconate 2000 mg/Sodium Chloride 120 ml @ 220 mls/hr 1X ONCE IV Last administered on 07/06/19at 09:05; Start 07/06/19 at 07:30; Stop 07/06/19 at 08:02; Status DC Lidocaine HCl (Xylocaine-Mpf 1% 2ml Vial) 2 ml STK-MED ONCE .ROUTE ; Start 07/06/19 at 08:47; Stop 07/06/19 at 08:47; Status DC Meropenem 500 mg/ Sodium Chloride 50 ml @ 100 mls/hr Q12HR IV Last administered on 07/11/19at 21:01; Start 07/06/19 at 18:00; Stop 07/12/19 at 07:58; Status DC Lidocaine HCl (Buffered Lidocaine 1%) 3 ml STK-MED ONCE .ROUTE ; Start 07/06/19 at 09:46; Stop 07/06/19 at 09:46; Status DC Lidocaine HCl (Buffered Lidocaine 1%) 6 ml 1X ONCE INJ Last administered on 07/06/19at 10:26; Start 07/06/19 at 10:15; Stop 07/06/19 at 10:16; Status DC Info (Tpn Per Pharmacy) 1 each PRN DAILY PRN MC SEE COMMENTS Last administered on 08/04/19at 13:19; Start 07/06/19 at 12:00 Sodium Chloride 1,000 ml @ 1,000 mls/hr Q1H PRN IV hypotension; Start 07/06/19 at 12:07; Stop 07/06/19 at 18:06; Status DC Diphenhydramine HCl (Benadryl) 25 mg 1X PRN PRN IV ITCHING; Start 07/06/19 at 12:15; Stop 07/07/19 at 12:14; Status DC Diphenhydramine HCl (Benadryl) 25 mg 1X PRN PRN IV ITCHING; Start 07/06/19 at 12:15; Stop 07/07/19 at 12:14; Status DC Sodium Chloride 1,000 ml @ 400 mls/hr Q2H30M PRN IV PATENCY; Start 07/06/19 at 12:07; Stop 07/07/19 at 00:06; Status DC Info (PHARMACY MONITORING -- do not chart) 1 each PRN DAILY PRN MC SEE COMMENTS; Start 07/06/19 at 12:15; Stop 07/08/19 at 08:13; Status DC Sodium Chloride 90 meq/Calcium Gluconate 10 meq/ Multivitamins 10 ml/Chromium/ Copper/Manganese/ Seleni/Zn 1 ml/ Total Parenteral Nutrition/Amino Acids/Dextrose/ Fat Emulsion Intravenous 55.005 ml @ 2.292 mls/hr TPN CONT IV ; Start 07/06/19 at 22:00; Stop 07/06/19 at 12:33; Status DC Info (Tpn Per Pharmacy) 1 each PRN DAILY PRN MC SEE COMMENTS; Start 07/06/19 at 12:30; Status UNV Sodium Chloride 90 meq/Calcium Gluconate 10 meq/ Multivitamins 10 ml/Chromium/ Copper/Manganese/ Seleni/Zn 0.5 ml/ Total Parenteral Nutrition/Amino Acids/Dextrose/ Fat Emulsion Intravenous 1,512 ml @ 63 mls/hr TPN CONT IV Last administered on 07/06/19at 22:06; Start 07/06/19 at 22:00; Stop 07/07/19 at 21:59; Status DC Calcium Carbonate/ Glycine (Tums) 500 mg PRN AFTMEALHC PRN PO INDIGESTION; Start 07/06/19 at 17:45 Calcium Gluconate (Calcium Gluconate) 2,000 mg 1X ONCE IVP Last administered on 07/07/19at 02:19; Start 07/07/19 at 02:15; Stop 07/07/19 at 02:16; Status DC Calcium Chloride 3000 mg/Sodium Chloride 1,030 ml @ 50 mls/hr [id number] IV Last administered on 07/09/19at 02:17; Start 07/07/19 at 08:00; Stop 07/09/19 at 15:23; Status DC Lorazepam (Ativan Inj) 1 mg PRN Q4HRS PRN IVP ANXIETY / AGITATION, 2nd choic Last administered on 08/05/19at 03:51; Start 07/07/19 at 09:00; Stop 08/05/19 at 09:19; Status DC Sodium Chloride 1,000 ml @ 1,000 mls/hr Q1H PRN IV hypotension; Start 07/07/19 at 08:56; Stop 07/07/19 at 14:55; Status DC Albumin Human 200 ml @ 200 mls/hr 1X PRN PRN IV Hypotension; Start 07/07/19 at 09:00; Stop 07/07/19 at 14:59; Status DC Diphenhydramine HCl (Benadryl) 25 mg 1X PRN PRN IV ITCHING; Start 07/07/19 at 09:00; Stop 07/08/19 at 08:59; Status DC Diphenhydramine HCl (Benadryl) 25 mg 1X PRN PRN IV ITCHING; Start 07/07/19 at 09:00; Stop 07/08/19 at 08:59; Status DC Sodium Chloride 1,000 ml @ 400 mls/hr Q2H30M PRN IV PATENCY; Start 07/07/19 at 08:56; Stop 07/07/19 at 20:55; Status DC Info (PHARMACY MONITORING -- do not chart) 1 each PRN DAILY PRN MC SEE COMMENT S; Start 07/07/19 at 09:00; Status UNV Info (PHARMACY MONITORING -- do not chart) 1 each PRN DAILY PRN MC SEE COMMENTS; Start 07/07/19 at 09:00; Stop 07/08/19 at 08:13; Status DC Digoxin (Lanoxin) 500 mcg 1X ONCE IV Last administered on 07/07/19at 10:04; Start 07/07/19 at 10:00; Stop 07/07/19 at 10:01; Status DC Digoxin (Lanoxin) 125 mcg 1X ONCE IV Last administered on 07/07/19at 17:10; Start 07/07/19 at 18:00; Stop 07/07/19 at 18:01; Status DC Magnesium Sulfate 100 ml @ 25 mls/hr 1X ONCE IV Last administered on 07/07/19at 12:48; Start 07/07/19 at 13:00; Stop 07/07/19 at 16:59; Status DC Sodium Chloride 90 meq/Magnesium Sulfate 10 meq/ Calcium Gluconate 20 meq/ Multivitamins 10 ml/Chromium/ Copper/Manganese/ Seleni/Zn 0.5 ml/ Total Parenteral Nutrition/Amino Acids/Dextrose/ Fat Emulsion Intravenous 1,512 ml @ 63 mls/hr TPN CONT IV Last administered on 07/07/19at 22:25; Start 07/07/19 at 22:00; Stop 07/08/19 at 21:59; Status DC Sodium Chloride 1,000 ml @ 1,000 mls/hr Q1H PRN IV hypotension; Start 07/08/19 at 08:05; Stop 07/08/19 at 14:04; Status DC Albumin Human 200 ml @ 200 mls/hr 1X ONCE IV Last administered on 07/08/19at 08:57; Start 07/08/19 at 08:15; Stop 07/08/19 at 09:14; Status DC Diphenhydramine HCl (Benadryl) 25 mg 1X PRN PRN IV ITCHING; Start 07/08/19 at 08:15; Stop 07/09/19 at 08:14; Status DC Diphenhydramine HCl (Benadryl) 25 mg 1X PRN PRN IV ITCHING; Start 07/08/19 at 08:15; Stop 07/09/19 at 08:14; Status DC Sodium Chloride 1,000 ml @ 400 mls/hr Q2H30M PRN IV PATENCY; Start 07/08/19 at 08:05; Stop 07/08/19 at 20:04; Status DC Info (PHARMACY MONITORING -- do not chart) 1 each PRN DAILY PRN MC SEE COM MENTS; Start 07/08/19 at 08:15; Stop 07/12/19 at 07:57; Status DC Sodium Chloride 90 meq/Potassium Chloride 15 meq/ Potassium Phosphate 10 mmol/ Magnesium Sulfate 10 meq/Calcium Gluconate 20 meq/ Multivitamins 10 ml/Chromium/ Copper/Manganese/ Seleni/Zn 0.5 ml/ Total Parenteral Nutrition/Amino Acids/Dextrose/ Fat Emulsion Intravenous 1,512 ml @ 63 mls/hr TPN CONT IV Last administered on 07/08/19at 21:01; Start 07/08/19 at 22:00; Stop 07/09/19 at 21:59; Status DC Potassium Chloride/Water 100 ml @ 100 mls/hr 1X ONCE IV Last administered on 07/08/19at 14:09; Start 07/08/19 at 14:00; Stop 07/08/19 at 14:59; Status DC Benzocaine (Hurricaine One) 1 spray 1X ONCE MM Last administered on 07/08/19at 16:38; Start 07/08/19 at 14:30; Stop 07/08/19 at 14:31; Status DC Lidocaine HCl (Glydo (Lidocaine) Jelly) 1 ramu 1X ONCE MM Last administered on 07/08/19at 16:38; Start 07/08/19 at 14:30; Stop 07/08/19 at 14:31; Status DC Linezolid/Dextrose 300 ml @ 300 mls/hr Q12HR IV Last administered on 07/14/19at 21:04; Start 07/08/19 at 20:00; Stop 07/15/19 at 07:50; Status DC Acetaminophen (Tylenol) 650 mg PRN Q6HRS PRN PO MILD PAIN / TEMP; Start 07/09/19 at 03:30; Stop 07/09/19 at 03:36; Status DC Acetaminophen (Tylenol) 650 mg PRN Q6HRS PRN PEG MILD PAIN / TEMP Last a dministered on 08/04/19at 19:56; Start 07/09/19 at 03:36 Sodium Chloride 1,000 ml @ 1,000 mls/hr Q1H PRN IV hypotension; Start 07/09/19 at 07:50; Stop 07/09/19 at 13:49; Status DC Albumin Human 200 ml @ 200 mls/hr 1X PRN PRN IV Hypotension; Start 07/09/19 at 08:00; Stop 07/09/19 at 13:59; Status DC Sodium Chloride (Normal Saline Flush) 10 ml 1X PRN PRN IV AP catheter pack; St art 07/09/19 at 08:00; Stop 07/10/19 at 07:59; Status DC Sodium Chloride (Normal Saline Flush) 10 ml 1X PRN PRN IV [employer] catheter pack; Start 07/09/19 at 08:00; Stop 07/10/19 at 07:59; Status DC Sodium Chloride 1,000 ml @ 400 mls/hr Q2H30M PRN IV PATENCY; Start 07/09/19 at 07:50; Stop 07/09/19 at 19:49; Status DC Info (PHARMACY MONITORING -- do not chart) 1 each PRN DAILY PRN MC SEE COMMENTS; Start 07/09/19 at 08:00; Status UNV Info (PHARMACY MONITORING -- do not chart) 1 each PRN DAILY PRN MC SEE COMME NTS; Start 07/09/19 at 08:00; Stop 07/11/19 at 08:25; Status DC Sodium Chloride 90 meq/Potassium Chloride 15 meq/ Potassium Phosphate 10 mmol/ Magnesium Sulfate 10 meq/Calcium Gluconate 20 meq/ Multivitamins 10 ml/Chromium/ Copper/Manganese/ Seleni/Zn 0.5 ml/ Total Parenteral Nutrition/Amino Acids/Dextrose/ Fat Emulsion Intravenous 1,512 ml @ 63 mls/hr TPN CONT IV Last administered on 07/09/19at 20:57; Start 07/09/19 at 22:00; Stop 07/10/19 at 21:59; Status DC Sodium Chloride 90 meq/Potassium Chloride 15 meq/ Potassium Phosphate 15 mmol/ Magnesium Sulfate 10 meq/Calcium Gluconate 20 meq/ Multivitamins 10 ml/Chromium/ Copper/Manganese/ Seleni/Zn 0.5 ml/ Total Parenteral Nutrition/Amino Acids/Dextrose/ Fat Emulsion Intravenous 1,512 ml @ 63 mls/hr TPN CONT IV ; Start 07/10/19 at 22:00; Stop 07/10/19 at 14:16; Status DC Sodium Chloride 90 meq/Potassium Chloride 15 meq/ Potassium Phosphate 15 mmol/ Magnesium Sulfate 10 meq/Calcium Gluconate 20 meq/ Multivitamins 10 ml/Chromium/ Copper/Manganese/ Seleni/Zn 0.5 ml/ Total Parenteral Nutrition/Amino Acids/Dextrose/ Fat Emulsion Intravenous 1,200 ml @ 50 mls/hr TPN CONT IV ; Start 07/10/19 at 22:00; Stop 07/10/19 at 14:17; Status DC Sodium Chloride 90 meq/Potassium Chloride 15 meq/ Potassium Phosphate 10 mmol/ Magnesium Sulfate 10 meq/Calcium Gluconate 20 meq/ Multivitamins 10 ml/Chromium/ Copper/Manganese/ Seleni/Zn 0.5 ml/ Total Parenteral Nutrition/Amino Acids/Dextrose/ Fat Emulsion Intravenous 1,200 ml @ 50 mls/hr TPN CONT IV Last administered on 07/10/19at 23:29; Start 07/10/19 at 22:00; Stop 07/11/19 at 21:59; Status DC Sodium Chloride 1,000 ml @ 1,000 mls/hr Q1H PRN IV hypotension; Start 07/11/19 at 07:28; Stop 07/11/19 at 13:27; Status DC Albumin Human 200 ml @ 200 mls/hr 1X ONCE IV Last administered on 07/11/19at 08:51; Start 07/11/19 at 07:30; Stop 07/11/19 at 08:29; Status DC Diphenhydramine HCl (Benadryl) 25 mg 1X PRN PRN IV ITCHING; Start 07/11/19 at 07:30; Stop 07/12/19 at 07:29; Status DC Diphenhydramine HCl (Benadryl) 25 mg 1X PRN PRN IV ITCHING; Start 07/11/19 at 07:30; Stop 07/12/19 at 07:29; Status DC Sodium Chloride 1,000 ml @ 400 mls/hr Q2H30M PRN IV PATENCY; Start 07/11/19 at 07:28; Stop 07/11/19 at 19:27; Status DC Info (PHARMACY MONITORING -- do not chart) 1 each PRN DAILY PRN MC SEE COMMENTS; Start 07/11/19 at 07:30; Stop 07/22/19 at 13:01; Status DC Metronidazole 100 ml @ 100 mls/hr Q6HRS IV Last administered on 07/27/19at 06:26; Start 07/11/19 at 08:30; Stop 07/27/19 at 09:58; Status DC Micafungin Sodium 100 mg/Dextrose 100 ml @ 100 mls/hr Q24H IV Last administered on 08/04/19at 15:08; Start 07/11/19 at 09:00 Propofol 0 ml @ As Directed STK-MED ONCE IV ; Start 07/11/19 at 07:53; Stop 07/11/19 at 07:53; Status DC Etomidate (Amidate) 20 mg STK-MED ONCE IV ; Start 07/11/19 at 07:53; Stop 07/11/19 at 07:54; Status DC Midazolam HCl (Versed) 5 mg STK-MED ONCE .ROUTE ; Start 07/11/19 at 07:57; Stop 07/11/19 at 07:57; Status DC Fentanyl Citrate 30 ml @ 0 mls/hr CONT PRN IV SEE PROTOCOL Last administered on 08/05/19at 06:12; Start 07/11/19 at 08:15; Stop 08/05/19 at 09:19; Status DC Artificial Tears (Artificial Tears) 1 drop PRN Q1HR PRN OU DRY EYE, 1st choice; Start 07/11/19 at 08:15 Midazolam HCl 50 mg/Sodium Chloride 50 ml @ 0 mls/hr CONT PRN IV SEE PROTOCOL Last administered on 07/14/19at 22:39; Start 07/11/19 at 08:15; Stop 07/16/19 at 15:59; Status DC Etomidate (Amidate) 8 mg 1X ONCE IV Last administered on 07/11/19at 08:33; Start 07/11/19 at 08:30; Stop 07/11/19 at 08:31; Status DC Succinylcholine Chloride (Anectine) 120 mg 1X ONCE IV Last administered on 07/11/19at 08:34; Start 07/11/19 at 08:30; Stop 07/11/19 at 08:31; Status DC Midazolam HCl (Versed) 5 mg 1X ONCE IV ; Start 07/11/19 at 08:30; Stop 07/11/19 at 08:31; Status DC Potassium Chloride 15 meq/ Bicarbonate Dialysis Soln w/ out KCl 5,007.5 ml @ 1,000 mls/ hr Q5H1M IV Last administered on 07/12/19at 11:11; Start 07/11/19 at 12:00; Stop 07/12/19 at 11:15; Status DC Potassium Chloride 15 meq/ Bicarbonate Dialysis Soln w/ out KCl 5,007.5 ml @ 1,000 mls/ hr Q5H1M IV Last administered on 07/12/19at 11:12; Start 07/11/19 at 12:00; Stop 07/12/19 at 11:17; Status DC Potassium Chloride 15 meq/ Bicarbonate Dialysis Soln w/ out KCl 5,007.5 ml @ 1,000 mls/ hr Q5H1M IV Last administered on 07/12/19at 11:11; Start 07/11/19 at 12:00; Stop 07/12/19 at 11:19; Status DC Sodium Chloride 90 meq/Potassium Chloride 15 meq/ Potassium Phosphate 10 mmol/ Magnesium Sulfate 10 meq/Calcium Gluconate 20 meq/ Multivitamins 10 ml/Chromium/ Copper/Manganese/ Seleni/Zn 0.5 ml/ Total Parenteral Nutrition/Amino Acids/Dextrose/ Fat Emulsion Intravenous 1,400 ml @ 58.333 mls/ hr TPN CONT IV Last administered on 07/11/19at 21:42; Start 07/11/19 at 22:00; Stop 07/12/19 at 21:59; Status DC Heparin Sodium (Porcine) (Heparin Sodium) 5,000 unit Q8HRS SQ Last administered on 07/16/19at 05:55; Start 07/11/19 at 15:00; Stop 07/16/19 at 13:28; Status DC Meropenem 500 mg/ Sodium Chloride 50 ml @ 100 mls/hr Q6HRS IV Last administered on 07/13/19at 06:00; Start 07/12/19 at 09:00; Stop 07/13/19 at 07:2 9; Status DC Potassium Phosphate 20 mmol/ Sodium Chloride 106.6667 ml @ 51.667 m... 1X ONCE IV Last administered on 07/12/19at 11:22; Start 07/12/19 at 10:15; Stop 07/12/19 at 12:18; Status DC Acetaminophen (Tylenol Supp) 650 mg PRN Q6HRS PRN MT MILD PAIN / TEMP Last administered on 08/02/19at 08:01; Start 07/12/19 at 10:30 Potassium Chloride/Water 100 ml @ 100 mls/hr Q1H IV Last administered on 07/12/19at 12:12; Start 07/12/19 at 11:00; Stop 07/12/19 at 12:59; Status DC Potassium Chloride 20 meq/ Bicarbonate Dialysis Soln w/ out KCl 5,010 ml @ 1,000 mls/hr Q5H1M IV Last administered on 07/13/19at 08:48; Start 07/12/19 at 12:00; Stop 07/13/19 at 13:03; Status DC Potassium Chloride 20 meq/ Bicarbonate Dialysis Soln w/ out KCl 5,010 ml @ 1,000 mls/hr Q5H1M IV Last administered on 07/17/19at 14:52; Start 07/12/19 at 11:30; Stop 07/17/19 at 19:59; Status DC Potassium Chloride 20 meq/ Bicarbonate Dialysis Soln w/ out KCl 5,010 ml @ 1,000 mls/hr Q5H1M IV Last administered on 07/17/19at 14:53; Start 07/12/19 at 11:30; Stop 07/17/19 at 19:59; Status DC Sodium Chloride 90 meq/Potassium Chloride 15 meq/ Potassium Phosphate 15 mmol/ Magnesium Sulfate 10 meq/Calcium Gluconate 15 meq/ Multivitamins 10 ml/Chromium/ Copper/Manganese/ Seleni/Zn 0.5 ml/ Total Parenteral Nutrition/Amino Acids/Dextrose/ Fat Emulsion Intravenous 1,400 ml @ 58.333 mls/ hr TPN CONT IV Last administered on 07/12/19at 22:17; Start 07/12/19 at 22:00; Stop 07/13/19 at 21:59; Status DC Cefepime HCl (Maxipime) 2 gm Q12HR IVP Last administered on 07/26/19at 20:56; Start 07/13/19 at 09:00; Stop 07/27/19 at 09:58; Status DC Daptomycin 500 mg/ Sodium Chloride 50 ml @ 100 mls/hr Q48H IV Last administered on 07/29/19at 09:57; Start 07/13/19 at 08:30; Stop 07/29/19 at 10:07; Status DC Lidocaine HCl (Buffered Lidocaine 1%) 3 ml 1X ONCE INJ Last administered on 07/13/19at 10:27; Start 07/13/19 at 10:30; Stop 07/13/19 at 10:31; Status DC Potassium Phosphate 20 mmol/ Sodium Chloride 106.6667 ml @ 51.667 m... 1X ONCE IV Last administered on 07/13/19at 12:51; Start 07/13/19 at 13:00; Stop 07/13/19 at 15:03; Status DC Sodium Chloride 90 meq/Potassium Chloride 15 meq/ Potassium Phosphate 18 mmol/ Magnesium Sulfate 8 meq/Calcium Gluconate 15 meq/ Multivitamins 10 ml/Chromium/ Copper/Manganese/ Seleni/Zn 0.5 ml/ Total Parenteral Nutrition/Amino Acids/Dextrose/ Fat Emulsion Intravenous 1,400 ml @ 58.333 mls/ hr TPN CONT IV Last administered on 07/13/19at 22:16; Start 07/13/19 at 22:00; Stop 07/14/19 at 21:59; Status DC Potassium Chloride 20 meq/ Bicarbonate Dialysis Soln w/ out KCl 5,010 ml @ 1,000 mls/hr Q5H1M IV Last administered on 07/17/19at 14:54; Start 07/13/19 at 16:00; Stop 07/17/19 at 19:59; Status DC Multi-Ingred Cream/Lotion/Oil/ Oint (Artificial Tears Eye Ointment) 1 ramu PRN Q1HR PRN OU DRY EYE, 2nd choice Last administered on 08/01/19at 08:19; Start 07/13/19 at 17:30 Sodium Chloride 90 meq/Potassium Chloride 15 meq/ Potassium Phosphate 18 mmol/ Magnesium Sulfate 8 meq/Calcium Gluconate 15 meq/ Multivitamins 10 ml/Chromium/ Copper/Manganese/ Seleni/Zn 0.5 ml/ Total Parenteral Nutrition/Amino Acids/Dextrose/ Fat Emulsion Intravenous 1,400 ml @ 58.333 mls/ hr TPN CONT IV Last administered on 07/14/19at 22:00; Start 07/14/19 at 22:00; Stop 07/15/19 at 21:59; Status DC Albumin Human 500 ml @ 125 mls/hr 1X ONCE IV ; Start 07/14/19 at 14:15; Stop 07/14/19 at 18:14; Status DC Sodium Chloride 90 meq/Potassium Chloride 15 meq/ Potassium Phosphate 18 mmol/ Magnesium Sulfate 8 meq/Calcium Gluconate 15 meq/ Multivitamins 10 ml/Chromium/ Copper/Manganese/ Seleni/Zn 0.5 ml/ Insulin Human Regular 10 unit/ Total Parenteral Nutrition/Amino Acids/Dextrose/ Fat Emulsion Intravenous 1,400 ml @ 58.333 mls/ hr TPN CONT IV Last administered on 07/15/19at 21:43; Start 07/15/19 at 22:00; Stop 07/16/19 at 21:59; Status DC Lidocaine HCl (Buffered Lidocaine 1%) 3 ml STK-MED ONCE .ROUTE ; Start 07/13/19 at 10:00; Stop 07/15/19 at 13:57; Status DC Midazolam HCl 100 mg/Sodium Chloride 100 ml @ 7 mls/hr CONT PRN IV SEE PROTOCOL Last administered on 07/27/19at 15:35; Start 07/16/19 at 16:00 Sodium Chloride 90 meq/Potassium Chloride 15 meq/ Potassium Phosphate 18 mmol/ Magnesium Sulfate 8 meq/Calcium Gluconate 15 meq/ Multivitamins 10 ml/Chromium/ Copper/Manganese/ Seleni/Zn 0.5 ml/ Insulin Human Regular 15 unit/ Total P arenteral Nutrition/Amino Acids/Dextrose/ Fat Emulsion Intravenous 1,400 ml @ 58.333 mls/ hr TPN CONT IV Last administered on 07/16/19at 20:34; Start 07/16/19 at 22:00; Stop 07/17/19 at 21:59; Status DC Info (Icu Electrolyte Protocol) 1 ea CONT PRN PRN MC PER PROTOCOL; Start 07/17/19 at 13:15 Sodium Chloride 90 meq/Potassium Chloride 15 meq/ Potassium Phosphate 18 mmol/ Magnesium Sulfate 8 meq/Calcium Gluconate 15 meq/ Multivitamins 10 ml/Chromium/ Copper/Manganese/ Seleni/Zn 0.5 ml/ Insulin Human Regular 15 unit/ Total Parenteral Nutrition/Amino Acids/Dextrose/ Fat Emulsion Intravenous 1,400 ml @ 58.333 mls/ hr TPN CONT IV Last administered on 07/17/19at 22:05; Start 07/17/19 at 22:00; Stop 07/18/19 at 21:59; Status DC Potassium Chloride 15 meq/ Bicarbonate Dialysis Soln w/ out KCl 5,007.5 ml @ 1,000 mls/ hr Q5H1M IV Last administered on 07/20/19at 18:14; Start 07/17/19 at 20:00; Stop 07/21/19 at 13:08; Status DC Potassium Chloride 15 meq/ Bicarbonate Dialysis Soln w/ out KCl 5,007.5 ml @ 1,000 mls/ hr Q5H1M IV Last administered on 07/20/19at 18:14; Start 07/17/19 at 20:00; Stop 07/21/19 at 13:08; Status DC Potassium Chloride 15 meq/ Bicarbonate Dialysis Soln w/ out KCl 5,007.5 ml @ 1,000 mls/ hr Q5H1M IV Last administered on 07/20/19at 18:14; Start 07/17/19 at 20:00; Stop 07/21/19 at 13:08; Status DC Iohexol (Omnipaque 240 Mg/ml) 30 ml 1X ONCE PO Last administered on 07/18/19at 11:30; Start 07/18/19 at 11:30; Stop 07/18/19 at 11:33; Status DC Info (CONTRAST GIVEN -- Rx MONITORING) 1 each PRN DAILY PRN MC SEE COMMENTS; Start 07/18/19 at 11:45; Stop 07/20/19 at 11:44; Status DC Sodium Chloride 90 meq/Potassium Chloride 15 meq/ Potassium Phosphate 18 mmol/ Magnesium Sulfate 8 meq/Calcium Gluconate 15 meq/ Multivitamins 10 ml/Chromium/ Copper/Manganese/ Seleni/Zn 0.5 ml/ Insulin Human Regular 15 unit/ Total Parenteral Nutrition/Amino Acids/Dextrose/ Fat Emulsion Intravenous 1,400 ml @ 58.333 mls/ hr TPN CONT IV Last administered on 07/18/19at 21:47; Start 07/18/19 at 22:00; Stop 07/19/19 at 21:59; Status DC Sodium Chloride 90 meq/Potassium Chloride 15 meq/ Potassium Phosphate 18 mmol/ Magnesium Sulfate 8 meq/Calcium Gluconate 15 meq/ Multivitamins 10 ml/Chromium/ Copper/Manganese/ Seleni/Zn 0.5 ml/ Insulin Human Regular 20 unit/ Total Parenteral Nutrition/Amino Acids/Dextrose/ Fat Emulsion Intravenous 1,400 ml @ 58.333 mls/ hr TPN CONT IV Last administered on 07/19/19at 21:36; Start 07/19/19 at 22:00; Stop 07/20/19 at 21:59; Status DC Alteplase, Recombinant (Cathflo For Central Catheter Clearance) 1 mg 1X ONCE INT CAT Last administered on 07/19/19at 20:03; Start 07/19/19 at 19:30; Stop 07/19/19 at 19:46; Status DC Alteplase, Recombinant (Cathflo For Central Catheter Clearance) 1 mg 1X ONCE INT CAT Last administered on 07/19/19at 22:05; Start 07/19/19 at 22:00; Stop 07/19/19 at 22:01; Status DC Sodium Chloride 90 meq/Potassium Chloride 15 meq/ Potassium Phosphate 18 mmol/ Magnesium Sulfate 8 meq/Calcium Gluconate 15 meq/ Multivitamins 10 ml/Chromium/ Copper/Manganese/ Seleni/Zn 0.5 ml/ Insulin Human Regular 20 unit/ Total Parenteral Nutrition/Amino Acids/Dextrose/ Fat Emulsion Intravenous 1,400 ml @ 58.333 mls/ hr TPN CONT IV Last administered on 07/20/19at 21:30; Start 07/20/19 at 22:00; Stop 07/21/19 at 21:59; Status DC Dexmedetomidine HCl 400 mcg/ Sodium Chloride 100 ml @ 0 mls/hr CONT PRN IV ANXIETY / AGITATION Last administered on 08/05/19at 04:12; Start 07/21/19 at 08:15 Sodium Chloride 500 ml @ 500 mls/hr 1X PRN PRN IV ELEVATED BP, SEE COMMENTS; Start 07/21/19 at 08:15 Atropine Sulfate (ATROPINE 0.5mg SYRINGE) 0.5 mg PRN Q5MIN PRN IV SEE COMMENTS; Start 07/21/19 at 08:15 Furosemide (Lasix) 20 mg 1X ONCE IVP Last administered on 07/21/19at 08:19; Start 07/21/19 at 08:15; Stop 07/21/19 at 08:16; Status DC Lidocaine HCl (Buffered Lidocaine 1%) 3 ml STK-MED ONCE .ROUTE ; Start 07/21/19 at 08:39; Stop 07/21/19 at 08:39; Status DC Lidocaine HCl (Buffered Lidocaine 1%) 6 ml 1X ONCE INJ Last administered on 07/21/19at 09:05; Start 07/21/19 at 09:00; Stop 07/21/19 at 09:06; Status DC Sodium Chloride 90 meq/Potassium Chloride 15 meq/ Potassium Phosphate 18 mmol/ Magnesium Sulfate 8 meq/Calcium Gluconate 15 meq/ Multivitamins 10 ml/Chromium/ Copper/Manganese/ Seleni/Zn 0.5 ml/ Insulin Human Regular 20 unit/ Total Parenteral Nutrition/Amino Acids/Dextrose/ Fat Emulsion Intravenous 1,400 ml @ 58.333 mls/ hr TPN CONT IV Last administered on 07/21/19at 22:45; Start 07/21/19 at 22:00; Stop 07/22/19 at 21:59; Status DC Sodium Chloride 1,000 ml @ 1,000 mls/hr Q1H PRN IV hypotension; Start 07/22/19 at 07:30; Stop 07/22/19 at 13:29; Status DC Albumin Human 200 ml @ 200 mls/hr 1X PRN PRN IV Hypotension Last administered on 07/22/19at 09:36; Start 07/22/19 at 07:30; Stop 07/22/19 at 13:29; Status DC Sodium Chloride (Normal Saline Flush) 10 ml 1X PRN PRN IV AP catheter pack; Start 07/22/19 at 07:30; Stop 07/22/19 at 21:29; Status DC Sodium Chloride (Normal Saline Flush) 10 ml 1X PRN PRN IV GOAT [employer]IVER catheter pack; Start 07/22/19 at 07:30; Stop 07/23/19 at 07:29; Status DC Sodium Chloride 1,000 ml @ 400 mls/hr Q2H30M PRN IV PATENCY; Start 07/22/19 at 07:30; Stop 07/22/19 at 19:29; Status DC Info (PHARMACY MONITORING -- do not chart) 1 each PRN DAILY PRN MC SEE COMMENTS; Start 07/22/19 at 07:30; Stop 07/22/19 at 13:02; Status DC Info (PHARMACY MONITORING -- do not chart) 1 each PRN DAILY PRN MC SEE COMMENTS; Start 07/22/19 at 07:30; Stop 07/24/19 at 12:45; Status DC Sodium Chloride 90 meq/Potassium Chloride 15 meq/ Potassium Phosphate 10 mmol/ Magnesium Sulfate 8 meq/Calcium Gluconate 15 meq/ Multivitamins 10 ml/Chromium/ Copper/Manganese/ Seleni/Zn 0.5 ml/ Insulin Human Regular 25 unit/ Total Parenteral Nutrition/Amino Acids/Dextrose/ Fat Emulsion Intravenous 1,400 ml @ 58.333 mls/ hr TPN CONT IV Last administered on 07/22/19at 22:19; Start 07/22/19 at 22:00; Stop 07/23/19 at 21:59; Status DC Heparin Sodium (Porcine) (Heparin Sodium) 5,000 unit Q12HR SQ Last administered on 08/04/19at 21:10; Start 07/22/19 at 21:00 Ondansetron HCl (Zofran) 4 mg PRN Q6HRS PRN IV NAUSEA/VOMITING; Start 07/25/19 at 07:00; Stop 07/26/19 at 06:59; Status DC Fentanyl Citrate (Fentanyl 2ml Vial) 25 mcg PRN Q5MIN PRN IV MILD PAIN 1-3; Start 07/25/19 at 07:00; Stop 07/26/19 at 06:59; Status DC Fentanyl Citrate (Fentanyl 2ml Vial) 50 mcg PRN Q5MIN PRN IV MODERATE TO SEVERE PAIN; Start 07/25/19 at 07:00; Stop 07/26/19 at 06:59; Status DC Ringer's Solution 1,000 ml @ 30 mls/hr Q24H IV ; Start 07/25/19 at 07:00; Stop 07/25/19 at 18:59; Status DC Lidocaine HCl (Xylocaine-Mpf 1% 2ml Vial) 2 ml PRN 1X PRN ID PRIOR TO IV START; Start 07/25/19 at 07:00; Stop 07/26/19 at 06:59; Status DC Prochlorperazine Edisylate (Compazine) 5 mg PACU PRN PRN IV NAUSEA, MRX1; Start 07/25/19 at 07:00; Stop 07/26/19 at 06:59; Status DC Sodium Chloride 1,000 ml @ 1,000 mls/hr Q1H PRN IV hypotension; Start 07/23/19 at 09:10; Stop 07/23/19 at 15:09; Status DC Albumin Human 200 ml @ 200 mls/hr 1X PRN PRN IV Hypotension Last administered on 07/23/19at 10:10; Start 07/23/19 at 09:15; Stop 07/23/19 at 15:14; Status DC Sodium Chloride 1,000 ml @ 400 mls/hr Q2H30M PRN IV PATENCY; Start 07/23/19 at 09:10; Stop 07/23/19 at 21:09; Status DC Info (PHARMACY MONITORING -- do not chart) 1 each PRN DAILY PRN MC SEE COMMENTS; Start 07/23/19 at 09:15; Stop 07/24/19 at 12:45; Status DC Info (PHARMACY MONITORING -- do not chart) 1 each PRN DAILY PRN MC SEE COMMENTS; Start 07/23/19 at 09:15; Stop 07/24/19 at 12:45; Status DC Sodium Chloride 90 meq/Potassium Chloride 15 meq/ Potassium Phosphate 10 mmol/ Magnesium Sulfate 8 meq/Calcium Gluconate 15 meq/ Multivitamins 10 ml/Chromium/ Copper/Manganese/ Seleni/Zn 0.5 ml/ Insulin Human Regular 25 unit/ Total Parenteral Nutrition/Amino Acids/Dextrose/ Fat Emulsion Intravenous 1,400 ml @ 58.333 mls/ hr TPN CONT IV Last administered on 07/23/19at 22:10; Start 07/23/19 at 22:00; Stop 07/24/19 at 21:59; Status DC Magnesium Sulfate 50 ml @ 25 mls/hr PRN DAILY PRN IV for Mag < 1.7 on am labs; Start 07/24/19 at 09:15 Sodium Chloride 90 meq/Potassium Chloride 15 meq/ Potassium Phosphate 10 mmol/ Magnesium Sulfate 8 meq/Calcium Gluconate 15 meq/ Multivitamins 10 ml/Chromium/ Copper/Manganese/ Seleni/Zn 0.5 ml/ Insulin Human Regular 25 unit/ Total Parenteral Nutrition/Amino Acids/Dextrose/ Fat Emulsion Intravenous 1,400 ml @ 58.333 mls/ hr TPN CONT IV Last administered on 07/24/19at 21:20; Start 07/24/19 at 22:00; Stop 07/25/19 at 21:59; Status DC Sodium Chloride 1,000 ml @ 1,000 mls/hr Q1H PRN IV hypotension; Start 07/24/19 at 12:23; Stop 07/24/19 at 18:22; Status DC Albumin Human 200 ml @ 200 mls/hr 1X ONCE IV Last administered on 07/24/19at 13:34; Start 07/24/19 at 12:30; Stop 07/24/19 at 13:29; Status DC Diphenhydramine HCl (Benadryl) 25 mg 1X PRN PRN IV ITCHING; Start 07/24/19 at 12:30; Stop 07/25/19 at 12:29; Status DC Diphenhydramine HCl (Benadryl) 25 mg 1X PRN PRN IV ITCHING; Start 07/24/19 at 12:30; Stop 07/25/19 at 12:29; Status DC Info (PHARMACY MONITORING -- do not chart) 1 each PRN DAILY PRN MC SEE COMMENTS; Start 07/24/19 at 12:30; Status Cancel Bupivacaine HCl/ Epinephrine Bitart (Sensorcain-Epi 0.5%-1:[id number] Mpf) 30 ml STK-MED ONCE .ROUTE Last administered on 07/25/19at 11:44; Start 07/25/19 at 11:00; Stop 07/25/19 at 11:01; Status DC Cellulose (Surgicel Fibrillar 1x2) 1 each STK-MED ONCE .ROUTE ; Start 07/25/19 at 11:00; Stop 07/25/19 at 11:01; Status DC Sodium Chloride 90 meq/Potassium Chloride 15 meq/ Potassium Phosphate 10 mmol/ Magnesium Sulfate 12 meq/Calcium Gluconate 15 meq/ Multivitamins 10 ml/Chromium/ Copper/Manganese/ Seleni/Zn 0.5 ml/ Insulin Human Regular 25 unit/ Total Parenteral Nutrition/Amino Acids/Dextrose/ Fat Emulsion Intravenous 1,400 ml @ 58.333 mls/ hr TPN CONT IV Last administered on 07/25/19at 22:24; Start 07/25/19 at 22:00; Stop 07/26/19 at 21:59; Status DC Propofol 20 ml @ As Directed STK-MED ONCE IV ; Start 07/25/19 at 11:07; Stop 07/25/19 at 11:07; Status DC Cellulose (Surgicel Hemostat 4x8) 1 each STK-MED ONCE .ROUTE Last administered on 07/25/19at 11:44; Start 07/25/19 at 11:55; Stop 07/25/19 at 11:56; Status DC Sevoflurane (Ultane) 60 ml STK-MED ONCE IH ; Start 07/25/19 at 12:46; Stop 07/25/19 at 12:46; Status DC Sodium Chloride 1,000 ml @ 1,000 mls/hr Q1H PRN IV hypotension; Start 07/25/19 at 13:51; Stop 07/25/19 at 19:50; Status DC Albumin Human 200 ml @ 200 mls/hr 1X PRN PRN IV Hypotension Last administered on 07/25/19at 14:51; Start 07/25/19 at 14:00; Stop 07/25/19 at 19:59; Status DC Diphenhydramine HCl (Benadryl) 25 mg 1X PRN PRN IV ITCHING; Start 07/25/19 at 14:00; Stop 07/26/19 at 13:59; Status DC Diphenhydramine HCl (Benadryl) 25 mg 1X PRN PRN IV ITCHING; Start 07/25/19 at 14:00; Stop 07/26/19 at 13:59; Status DC Sodium Chloride 1,000 ml @ 400 mls/hr Q2H30M PRN IV PATENCY; Start 07/25/19 at 13:51; Stop 07/26/19 at 01:50; Status DC Info (PHARMACY MONITORING -- do not chart) 1 each PRN DAILY PRN MC SEE COMMENTS; Start 07/25/19 at 14:00; Stop 07/28/19 at 08:16; Status DC Heparin Sodium (Porcine) (Hep Lock Adult) 500 unit STK-MED ONCE IVP ; Start 07/26/19 at 09:29; Stop 07/26/19 at 09:30; Status DC Sodium Chloride 1,000 ml @ 1,000 mls/hr Q1H PRN IV hypotension; Start 07/26/19 at 10:43; Stop 07/26/19 at 16:42; Status DC Sodium Chloride 1,000 ml @ 400 mls/hr Q2H30M PRN IV PATENCY; Start 07/26/19 at 10:43; Stop 07/26/19 at 22:42; Status DC Info (PHARMACY MONITORING -- do not chart) 1 each PRN DAILY PRN MC SEE COMMENTS; Start 07/26/19 at 10:45; Status UNV Info (PHARMACY MONITORING -- do not chart) 1 each PRN DAILY PRN MC SEE COMMENTS; Start 07/26/19 at 10:45; Status UNV Sodium Chloride 90 meq/Potassium Chloride 15 meq/ Magnesium Sulfate 12 meq/Calcium Gluconate 15 meq/ Multivitamins 10 ml/Chromium/ Copper/Manganese/ Seleni/Zn 0.5 ml/ Insulin Human Regular 25 unit/ Total Parenteral Nutrition/Amino Acids/Dextrose/ Fat Emulsion Intravenous 1,400 ml @ 58.333 mls/ hr TPN CONT IV Last administered on 07/26/19at 22:13; Start 07/26/19 at 22:00; Stop 07/27/19 at 21:59; Status DC Sodium Chloride 1,000 ml @ 1,000 mls/hr Q1H PRN IV hypotension; Start 07/27/19 at 07:50; Stop 07/27/19 at 13:49; Status DC Albumin Human 200 ml @ 200 mls/hr 1X ONCE IV ; Start 07/27/19 at 08:00; Stop 07/27/19 at 08:53; Status DC Diphenhydramine HCl (Benadryl) 25 mg 1X PRN PRN IV ITCHING; Start 07/27/19 at 08:00; Stop 07/28/19 at 07:59; Status DC Diphenhydramine HCl (Benadryl) 25 mg 1X PRN PRN IV ITCHING; Start 07/27/19 at 08:00; Stop 07/28/19 at 07:59; Status DC Info (PHARMACY MONITORING -- do not chart) 1 each PRN DAILY PRN MC SEE COMMENTS; Start 07/27/19 at 08:00; Stop 07/28/19 at 08:16; Status DC Albumin Human 50 ml @ 50 mls/hr 1X ONCE IV ; Start 07/27/19 at 08:53; Stop 07/27/19 at 08:56; Status DC Albumin Human 200 ml @ 50 mls/hr PRN 1X PRN IV HYPOTENSION Last administered on 08/02/19at 11:54; Start 07/27/19 at 09:00 Meropenem 500 mg/ Sodium Chloride 50 ml @ 100 mls/hr Q12H IV Last administered on 08/04/19at 23:04; Start 07/27/19 at 10:00 Sodium Chloride 90 meq/Magnesium Sulfate 12 meq/ Calcium Gluconate 15 meq/ Multivitamins 10 ml/Chromium/ Copper/Manganese/ Seleni/Zn 0.5 ml/ Insulin Human Regular 25 unit/ Total Parenteral Nutrition/Amino Acids/Dextrose/ Fat Emulsion Intravenous 1,400 ml @ 58.333 mls/ hr TPN CONT IV Last administered on 07/27/19at 21:41; Start 07/27/19 at 22:00; Stop 07/28/19 at 21:59; Status DC Sodium Chloride 1,000 ml @ 1,000 mls/hr Q1H PRN IV hypotension; Start 07/28/19 at 07:58; Stop 07/28/19 at 13:57; Status DC Albumin Human 200 ml @ 200 mls/hr 1X PRN PRN IV Hypotension Last administered on 07/28/19at 09:30; Start 07/28/19 at 08:00; Stop 07/28/19 at 13:59; Status DC Sodium Chloride 1,000 ml @ 400 mls/hr Q2H30M PRN IV PATENCY; Start 07/28/19 at 07:58; Stop 07/28/19 at 19:57; Status DC Info (PHARMACY MONITORING -- do not chart) 1 each PRN DAILY PRN MC SEE COMMENTS; Start 07/28/19 at 08:00; Status Cancel Info (PHARMACY MONITORING -- do not chart) 1 each PRN DAILY PRN MC SEE COMMENTS; Start 07/28/19 at 08:15; Status UNV Sodium Chloride 90 meq/Potassium Phosphate 5 mmol/ Magnesium Sulfate 12 meq/Calcium Gluconate 15 meq/ Multivitamins 10 ml/Chromium/ Copper/Manganese/ Seleni/Zn 0.5 ml/ Insulin Human Regular 30 unit/ Total Parenteral Nutrition/Amino Acids/Dextrose/ Fat Emulsion Intravenous 1,400 ml @ 58.333 mls/ hr TPN CONT IV Last administered on 07/28/19at 22:08; Start 07/28/19 at 22:00; Stop 07/29/19 at 21:59; Status DC Linezolid/Dextrose 300 ml @ 300 mls/hr Q12HR IV Last administered on 08/04/19at 21:09; Start 07/29/19 at 11:00 Sodium Chloride 90 meq/Potassium Phosphate 15 mmol/ Magnesium Sulfate 12 meq/Calcium Gluconate 15 meq/ Multivitamins 10 ml/Chromium/ Copper/Manganese/ Seleni/Zn 0.5 ml/ Insulin Human Regular 30 unit/ Total Parenteral Nutrition/Ami no Acids/Dextrose/ Fat Emulsion Intravenous 1,400 ml @ 58.333 mls/ hr TPN CONT IV Last administered on 07/29/19at 21:49; Start 07/29/19 at 22:00; Stop 07/30/19 at 21:59; Status DC Sodium Chloride 90 meq/Potassium Phosphate 15 mmol/ Magnesium Sulfate 12 meq/Calcium Gluconate 15 meq/ Multivitamins 10 ml/Chromium/ Copper/Manganese/ Seleni/Zn 0.5 ml/ Insulin Human Regular 40 unit/ Total Parenteral Nutrition/Amino Acids/Dextrose/ Fat Emulsion Intravenous 1,400 ml @ 58.333 mls/ hr TPN CONT IV Last administered on 07/30/19at 21:21; Start 07/30/19 at 22:00; Stop 07/31/19 at 21:59; Status DC Sodium Chloride 1,000 ml @ 1,000 mls/hr Q1H PRN IV hypotension; Start 07/30/19 at 13:26; Stop 07/30/19 at 19:25; Status DC Albumin Human 200 ml @ 200 mls/hr 1X PRN PRN IV Hypotension Last administered on 07/30/19at 15:00; Start 07/30/19 at 13:30; Stop 07/30/19 at 19:29; Status DC Sodium Chloride (Normal Saline Flush) 10 ml 1X PRN PRN IV AP catheter pack; Start 07/30/19 at 13:30; Stop 07/31/19 at 13:29; Status DC Sodium Chloride (Normal Saline Flush) 10 ml 1X PRN PRN IV [employer]IVER catheter pack; Start 07/30/19 at 13:30; Stop 07/31/19 at 13:29; Status DC Sodium Chloride 1,000 ml @ 400 mls/hr Q2H30M PRN IV PATENCY; Start 07/30/19 at 13:26; Stop 07/31/19 at 01:25; Status DC Info (PHARMACY MONITORING -- do not chart) 1 each PRN DAILY PRN MC SEE COMMENTS; Start 07/30/19 at 13:30; Stop 07/30/19 at 13:33; Status DC Info (PHARMACY MONITORING -- do not chart) 1 each PRN DAILY PRN MC SEE COMMENTS; Start 07/30/19 at 13:30; Stop 07/30/19 at 13:34; Status DC Sodium Chloride 90 meq/Potassium Phosphate 19 mmol/ Magnesium Sulfate 12 meq/Calcium Gluconate 15 meq/ Multivitamins 10 ml/Chromium/ Copper/Manganese/ Seleni/Zn 0.5 ml/ Insulin Human Regular 40 unit/ Total Parenteral Nutrition/Alfaro o Acids/Dextrose/ Fat Emulsion Intravenous 1,400 ml @ 58.333 mls/ hr TPN CONT IV Last administered on 07/31/19at 21:54; Start 07/31/19 at 22:00; Stop 08/01/19 at 21:59; Status DC Sodium Chloride 1,000 ml @ 1,000 mls/hr Q1H PRN IV hypotension; Start 08/01/19 at 09:35; Stop 08/01/19 at 15:34; Status DC Albumin Human 200 ml @ 200 mls/hr 1X PRN PRN IV Hypotension; Start 08/01/19 at 09:45; Stop 08/01/19 at 15:44; Status DC Diphenhydramine HCl (Benadryl) 25 mg 1X PRN PRN IV ITCHING; Start 08/01/19 at 09:45; Stop 08/02/19 at 09:44; Status DC Diphenhydramine HCl (Benadryl) 25 mg 1X PRN PRN IV ITCHING; Start 08/01/19 at 09:45; Stop 08/02/19 at 09:44; Status DC Sodium Chloride 1,000 ml @ 400 mls/hr Q2H30M PRN IV PATENCY; Start 08/01/19 at 09:35; Stop 08/01/19 at 21:34; Status DC Info (PHARMACY MONITORING -- do not chart) 1 each PRN DAILY PRN MC SEE COMMENTS; Start 08/01/19 at 09:45; Status Cancel Sodium Chloride 100 meq/Potassium Phosphate 19 mmol/ Magnesium Sulfate 12 meq/Calcium Gluconate 15 meq/ Multivitamins 10 ml/Chromium/ Copper/Manganese/ Seleni/Zn 0.5 ml/ Insulin Human Regular 40 unit/ Potassium Chloride 20 meq/ Total Parenteral Nutrition/Amino Acids/Dextrose/ Fat Emulsion Intravenous 1,400 ml @ 58.333 mls/ hr TPN CONT IV Last administered on 08/01/19at 22:02; Start 08/01/19 at 22:00; Stop 08/02/19 at 21:59; Status DC Furosemide (Lasix) 40 mg 1X ONCE IVP Last administered on 08/01/19at 14:39; Start 08/01/19 at 14:30; Stop 08/01/19 at 14:31; Status DC Metronidazole 100 ml @ 100 mls/hr Q8HRS IV Last administered on 08/05/19at 06:07; Start 08/02/19 at 10:00 Sodium Chloride 1,000 ml @ 1,000 mls/hr Q1H PRN IV hypotension; Start 08/02/19 at 08:00; Stop 08/02/19 at 13:59; Status DC Albumin Human 200 ml @ 200 mls/hr 1X PRN PRN IV Hypotension; Start 08/02/19 at 08:00; Stop 08/02/19 at 13:59; Status DC Sodium Chloride 1,000 ml @ 400 mls/hr Q2H30M PRN IV PATENCY; Start 08/02/19 at 08:00; Stop 08/02/19 at 19:59; Status DC Info (PHARMACY MONITORING -- do not chart) 1 each PRN DAILY PRN MC SEE COMME NTS; Start 08/02/19 at 11:30; Status UNV Info (PHARMACY MONITORING -- do not chart) 1 each PRN DAILY PRN MC SEE COMMENTS; Start 08/02/19 at 11:30; Stop 08/04/19 at 12:13; Status DC Sodium Chloride 100 meq/Potassium Phosphate 19 mmol/ Magnesium Sulfate 12 meq/Calcium Gluconate 15 meq/ Multivitamins 10 ml/Chromium/ Copper/Manganese/ Seleni/Zn 0.5 ml/ Insulin Human Regular 40 unit/ Potassium Chloride 20 meq/ Total Parenteral Nutrition/Amino Acids/Dextrose/ Fat Emulsion Intravenous 1,400 ml @ 58.333 mls/ hr TPN CONT IV Last administered on 08/02/19at 21:52; Start 08/02/19 at 22:00; Stop 08/03/19 at 21:59; Status DC Sodium Chloride (Normal Saline Flush) 10 ml QSHIFT PRN IV AFTER MEDS AND BLOOD DRAWS; Start 08/02/19 at 15:00 Sodium Chloride (Normal Saline Flush) 10 ml PRN Q5MIN PRN IV AFTER MEDS AND BLOOD DRAWS; Start 08/02/19 at 15:00 Sodium Chloride (Normal Saline Flush) 20 ml PRN Q5MIN PRN IV AFTER MEDS AND BLOOD DRAWS; Start 08/02/19 at 15:00 Sodium Chloride 100 meq/Potassium Phosphate 19 mmol/ Magnesium Sulfate 12 meq/Calcium Gluconate 15 meq/ Multivitamins 10 ml/Chromium/ Copper/Manganese/ Seleni/Zn 0.5 ml/ Insulin Human Regular 40 unit/ Potassium Chloride 20 meq/ Total Parenteral Nutrition/Amino Acids/Dextrose/ Fat Emulsion Intravenous 1,400 ml @ 58.333 mls/ hr TPN CONT IV Last administered on 08/03/19at 21:20; Start 08/03/19 at 22:00; Stop 08/04/19 at 21:59; Status DC Lidocaine HCl (Buffered Lidocaine 1%) 3 ml STK-MED ONCE .ROUTE ; Start 08/03/19 at 13:16; Stop 08/03/19 at 13:16; Status DC Lidocaine HCl (Buffered Lidocaine 1%) 6 ml 1X ONCE INJ Last administered on 08/03/19at 13:45; Start 08/03/19 at 13:30; Stop 08/03/19 at 13:31; Status DC Albumin Human 100 ml @ 100 mls/hr 1X ONCE IV Last administered on 08/03/19at 15:41; Start 08/03/19 at 15:00; Stop 08/03/19 at 15:59; Status DC Albumin Human 50 ml @ 50 mls/hr 1X ONCE IV Last administered on 08/03/19at 15:00; Start 08/03/19 at 15:00; Stop 08/03/19 at 15:59; Status DC Info (PHARMACY MONITORING -- do not chart) 1 each PRN DAILY PRN MC SEE CO MMENTS; Start 08/04/19 at 11:30 Info (PHARMACY MONITORING -- do not chart) 1 each PRN DAILY PRN MC SEE COMMENTS; Start 08/04/19 at 11:30; Status UNV Sodium Chloride 100 meq/Potassium Phosphate 10 mmol/ Magnesium Sulfate 12 meq/Calcium Gluconate 15 meq/ Multivitamins 10 ml/Chromium/ Copper/Manganese/ Seleni/Zn 0.5 ml/ Insulin Human Regular 35 unit/ Potassium Chloride 20 meq/ Total Parenteral Nutrition/Amino Acids/Dextrose/ Fat Emulsion Intravenous 1,400 ml @ 58.333 mls/ hr TPN CONT IV Last administered on 08/04/19at 22:10; Start 08/04/19 at 22:00; Stop 08/05/19 at 21:59 Active Scripts Active Reported Bisoprolol Fumarate 5 Mg Tablet 10 Mg PO DAILY Vitals/I & O Vital Sign - Last 24 Hours 08/04/19 08/04/19 08/04/19 08/04/19 11:58 13:07 14:15 15:00 Temp 100.8 100.8 Pulse 82 76 Resp 22 21 B/P (MAP) 140/85 (103) 100/54 (69) Pulse Ox 99 99 O2 Delivery Ventilator Ventilator Ventilator 08/04/19 08/04/19 08/04/19 08/04/19 15:30 15:49 16:00 16:00 Pulse 79 Resp 20 B/P (MAP) 77/49 (58) Pulse Ox 100 O2 Delivery Ventilator Ventilator Mechanical Ventilator Mechanical Ventilator 08/04/19 08/04/19 08/04/19 08/04/19 16:00 17:00 19:00 20:00 Pulse 66 82 Resp 18 22 B/P (MAP) 113/66 (82) 114/64 (81) Pulse Ox 99 100 O2 Delivery Ventilator Ventilator Ventilator Ventilator 08/04/19 08/04/19 08/04/19 08/04/19 20:00 20:00 21:00 22:00 Temp 101.8 101.8 Pulse 96 81 Resp 24 18 18 B/P (MAP) 141/81 (101) 91/49 (63) 115/68 (84) Pulse Ox 99 100 100 O2 Delivery Mechanical Ventilator Ventilator Ventilator Ventilator 08/04/19 08/04/19 08/05/19 08/05/19 22:05 23:01 00:00 00:00 Temp 100.9 100.9 Pulse 80 82 Resp 18 20 B/P (MAP) 101/58 (72) 102/71 (81) Pulse Ox 100 100 99 O2 Delivery Ventilator Ventilator Mechanical Ventilator Ventilator 08/05/19 08/05/19 08/05/19 08/05/19 01:00 01:40 02:00 03:00 Pulse 81 84 88 Resp 18 18 18 B/P (MAP) 104/67 (79) 115/63 (80) 119/69 (86) Pulse Ox 99 100 99 99 O2 Delivery Ventilator Ventilator Ventilator Ventilator 08/05/19 08/05/19 08/05/19 08/05/19 03:31 04:00 04:00 05:00 Temp 98.1 98.1 Pulse 91 83 Resp 18 18 B/P (MAP) 122/70 (87) 108/59 (75) Pulse Ox 100 99 100 O2 Delivery Ventilator Mechanical Ventilator Ventilator Ventilator 08/05/19 08/05/19 08/05/19 05:33 06:00 07:37 Pulse 80 Resp 18 B/P (MAP) 174/82 (112) Pulse Ox 100 100 100 O2 Delivery Ventilator Ventilator Ventilator Intake and Output 08/04/19 08/04/19 08/05/19 15:00 23:00 07:00 Intake Total 2202 ml 1102.2 ml Output Total 250 ml 485 ml 350 ml Balance -250 ml 1717 ml 752.2 ml ABI AHN MD Aug 05, 2019 09:43
[2019-08-05] MEDS: PANTOPRAZOLE IV PUSH 40 MG VIAL. IVP SCH (09:49)
[2019-08-05] MEDS: MEROPENEM 500 MG in IV NORMAL SALINE 50ML 50 ML IV SCH ×2 (09:50→22:09)
[2019-08-05] MEDS: MICAFUNGIN 100 MG in IV DEXTROSE 5% 100ML 100 ML IV SCH (09:50)
[2019-08-05] MEDS: HEPARIN for SUB-Q USE 5,000 UNIT/ML VIAL. SQ SCH ×2 (09:57→22:09)
--- NOTE | 2019-08-05 10:03 | PDOC ---
SURGICAL PROGRESS NOTE Subjective Pt awake alert and responsive Vital Signs Vital Signs Date Time Temp Pulse Resp B/P (MAP) Pulse Ox O2 Delivery O2 Flow Rate FiO2 08/05/19 07:37 100 Ventilator 08/05/19 06:00 80 18 174/82 (112) 08/05/19 04:00 98.1 98.1 I&O Intake and Output 08/05/19 07:00 Intake Total 3304.2 ml Output Total 1085 ml Balance 2219.2 ml IV Total 3304.2 ml Output Urine Total 1085 ml General: Alert, No acute distress Abdomen: Soft, No tenderness Labs Laboratory Tests Test 08/03/19 11:57 08/03/19 12:35 08/03/19 23:48 08/04/19 06:15 Glucose (Fingerstick) 164 mg/dL (70-99) 158 mg/dL (70-99) Prothrombin Time 15.6 SEC (11.7-14.0) Prothromb Time International Ratio 1.3 (0.8-1.1) Sodium Level 139 mmol/L (136-145) Potassium Level 3.9 mmol/L (3.5-5.1) Chloride Level 102 mmol/L (98-107) Carbon Dioxide Level 25 mmol/L (21-32) Anion Gap 12 (6-14) Blood Urea Nitrogen 88 mg/dL (7-20) Creatinine 1.8 mg/dL (0.6-1.0) Estimated GFR (Cockcroft-Gault) 29.9 Glucose Level 120 mg/dL (70-99) Calcium Level 9.1 mg/dL (8.5-10.1) Phosphorus Level 5.1 mg/dL (2.6-4.7) Magnesium Level 2.0 mg/dL (1.8-2.4) Test 08/04/19 06:18 08/04/19 08:00 08/04/19 10:00 08/04/19 19:31 Glucose (Fingerstick) 106 mg/dL (70-99) 142 mg/dL (70-99) O2 Saturation 97 % (92-99) Arterial Blood pH 7.45 (7.35-7.45) Arterial Blood pH (Temp corrected) 7.43 Arterial Blood pCO2 at Patient Temp 33 mmHg (35-46) Arterial Blood pCO2 (Temp correct) 35 mmHg Arterial Blood pO2 at Patient Temp 103 mmHg (75-108) Arterial Blood pO2 (Temp corrected) 114 mmHg Arterial Blood HCO3 22 mmol/L (21-28) Arterial Blood Base Excess -1 mmol/L (-3-3) FiO2 35% vent White Blood Count 9.2 x10^3/uL (4.0-11.0) Red Blood Count 2.76 x10^6/uL (3.50-5.40) Hemoglobin 8.9 g/dL (12.0-15.5) Hematocrit 26.5 % (36.0-47.0) Mean Corpuscular Volume 96 fL (79-100) Mean Corpuscular Hemoglobin 32 pg (25-35) Mean Corpuscular Hemoglobin Concent 33 g/dL (31-37) Red Cell Distribution Width 18.9 % (11.5-14.5) Platelet Count 530 x10^3/uL (140-400) Neutrophils (%) (Auto) 66 % (31-73) Lymphocytes (%) (Auto) 21 % (24-48) Monocytes (%) (Auto) 12 % (0-9) Eosinophils (%) (Auto) 0 % (0-3) Basophils (%) (Auto) 1 % (0-3) Neutrophils # (Auto) 6.1 x10^3/uL (1.8-7.7) Lymphocytes # (Auto) 2.0 x10^3/uL (1.0-4.8) Monocytes # (Auto) 1.1 x10^3/uL (0.0-1.1) Eosinophils # (Auto) 0.0 x10^3/uL (0.0-0.7) Basophils # (Auto) 0.0 x10^3/uL (0.0-0.2) Test 08/04/19 23:53 08/05/19 06:00 08/05/19 06:06 08/05/19 07:00 Glucose (Fingerstick) 145 mg/dL (70-99) 129 mg/dL (70-99) Sodium Level 140 mmol/L (136-145) Potassium Level 3.7 mmol/L (3.5-5.1) Chloride Level 103 mmol/L (98-107) Carbon Dioxide Level 26 mmol/L (21-32) Anion Gap 11 (6-14) Blood Urea Nitrogen 80 mg/dL (7-20) Creatinine 1.6 mg/dL (0.6-1.0) Estimated GFR (Cockcroft-Gault) 34.3 BUN/Creatinine Ratio 50 (6-20) Glucose Level 130 mg/dL (70-99) Calcium Level 8.4 mg/dL (8.5-10.1) Phosphorus Level 5.2 mg/dL (2.6-4.7) Total Bilirubin 0.4 mg/dL (0.2-1.0) Aspartate Amino Transf (AST/SGOT) 23 U/L (15-37) Alanine Aminotransferase (ALT/SGPT) 12 U/L (14-59) Alkaline Phosphatase 52 U/L (46-116) Total Protein 4.9 g/dL (6.4-8.2) Albumin 2.6 g/dL (3.4-5.0) Albumin/Globulin Ratio 1.1 (1.0-1.7) White Blood Count 5.8 x10^3/uL (4.0-11.0) Red Blood Count 2.40 x10^6/uL (3.50-5.40) Hemoglobin 7.6 g/dL (12.0-15.5) Hematocrit 22.8 % (36.0-47.0) Mean Corpuscular Volume 95 fL (79-100) Mean Corpuscular Hemoglobin 32 pg (25-35) Mean Corpuscular Hemoglobin Concent 33 g/dL (31-37) Red Cell Distribution Width 18.4 % (11.5-14.5) Platelet Count 498 x10^3/uL (140-400) Neutrophils (%) (Auto) 67 % (31-73) Lymphocytes (%) (Auto) 17 % (24-48) Monocytes (%) (Auto) 14 % (0-9) Eosinophils (%) (Auto) 1 % (0-3) Basophils (%) (Auto) 1 % (0-3) Neutrophils # (Auto) 3.9 x10^3/uL (1.8-7.7) Lymphocytes # (Auto) 1.0 x10^3/uL (1.0-4.8) Monocytes # (Auto) 0.8 x10^3/uL (0.0-1.1) Eosinophils # (Auto) 0.0 x10^3/uL (0.0-0.7) Basophils # (Auto) 0.0 x10^3/uL (0.0-0.2) Test 08/05/19 08:00 O2 Saturation 98 % (92-99) Arterial Blood pH 7.47 (7.35-7.45) Arterial Blood pCO2 at Patient Temp 33 mmHg (35-46) Arterial Blood pO2 at Patient Temp 136 mmHg (75-108) Arterial Blood HCO3 24 mmol/L (21-28) Arterial Blood Base Excess 0 mmol/L (-3-3) FiO2 35 Laboratory Tests Test 08/04/19 19:31 08/04/19 23:53 08/05/19 06:00 08/05/19 06:06 Glucose (Fingerstick) 142 mg/dL (70-99) 145 mg/dL (70-99) 129 mg/dL (70-99) Sodium Level 140 mmol/L (136-145) Potassium Level 3.7 mmol/L (3.5-5.1) Chloride Level 103 mmol/L (98-107) Carbon Dioxide Level 26 mmol/L (21-32) Anion Gap 11 (6-14) Blood Urea Nitrogen 80 mg/dL (7-20) Creatinine 1.6 mg/dL (0.6-1.0) Estimated GFR (Cockcroft-Gault) 34.3 BUN/Creatinine Ratio 50 (6-20) Glucose Level 130 mg/dL (70-99) Calcium Level 8.4 mg/dL (8.5-10.1) Phosphorus Level 5.2 mg/dL (2.6-4.7) Total Bilirubin 0.4 mg/dL (0.2-1.0) Aspartate Amino Transf (AST/SGOT) 23 U/L (15-37) Alanine Aminotransferase (ALT/SGPT) 12 U/L (14-59) Alkaline Phosphatase 52 U/L (46-116) Total Protein 4.9 g/dL (6.4-8.2) Albumin 2.6 g/dL (3.4-5.0) Albumin/Globulin Ratio 1.1 (1.0-1.7) Test 08/05/19 07:00 08/05/19 08:00 White Blood Count 5.8 x10^3/uL (4.0-11.0) Red Blood Count 2.40 x10^6/uL (3.50-5.40) Hemoglobin 7.6 g/dL (12.0-15.5) Hematocrit 22.8 % (36.0-47.0) Mean Corpuscular Volume 95 fL (79-100) Mean Corpuscular Hemoglobin 32 pg (25-35) Mean Corpuscular Hemoglobin Concent 33 g/dL (31-37) Red Cell Distribution Width 18.4 % (11.5-14.5) Platelet Count 498 x10^3/uL (140-400) Neutrophils (%) (Auto) 67 % (31-73) Lymphocytes (%) (Auto) 17 % (24-48) Monocytes (%) (Auto) 14 % (0-9) Eosinophils (%) (Auto) 1 % (0-3) Basophils (%) (Auto) 1 % (0-3) Neutrophils # (Auto) 3.9 x10^3/uL (1.8-7.7) Lymphocytes # (Auto) 1.0 x10^3/uL (1.0-4.8) Monocytes # (Auto) 0.8 x10^3/uL (0.0-1.1) Eosinophils # (Auto) 0.0 x10^3/uL (0.0-0.7) Basophils # (Auto) 0.0 x10^3/uL (0.0-0.2) O2 Saturation 98 % (92-99) Arterial Blood pH 7.47 (7.35-7.45) Arterial Blood pCO2 at Patient Temp 33 mmHg (35-46) Arterial Blood pO2 at Patient Temp 136 mmHg (75-108) Arterial Blood HCO3 24 mmol/L (21-28) Arterial Blood Base Excess 0 mmol/L (-3-3) FiO2 35 Problem List Problems Medical Problems: (1) Acute pancreatitis Status: Acute (2) Cholelithiasis Status: Acute Assessment/Plan appears to be improving will clamp NGT and if tolerates work towards d/c plan speech eval pending this for swallowing and consideration of starting PO DAVON SIMMS MD Aug 05, 2019 10:03
[2019-08-05] MEDS: ACETAMINOPHEN 650 MG SUPP.RECT. PR PRN (10:25)
--- NOTE | 2019-08-05 11:31 | PDOC ---
Renal-Progress Notes Subjective Notes Notes NO NEW COMPLAINTS, STILL HAVING IRRITATION WITH ALL THE TUBES History of Present Illness Hx of present illness MORE AWAKE Vitals Vitals Vital Signs Date Time Temp Pulse Resp B/P (MAP) Pulse Ox O2 Delivery O2 Flow Rate FiO2 08/05/19 10:51 100 Ventilator 08/05/19 06:00 80 18 174/82 (112) 08/05/19 04:00 98.1 98.1 Weight Weight [ ] I.O. Intake and Output Intake and Output 08/05/19 07:00 Intake Total 3304.2 ml Output Total 1085 ml Balance 2219.2 ml IV Total 3304.2 ml Output Urine Total 1085 ml Labs Labs Laboratory Tests Test 08/04/19 19:31 08/04/19 23:53 08/05/19 06:00 08/05/19 06:06 Glucose (Fingerstick) 142 mg/dL (70-99) 145 mg/dL (70-99) 129 mg/dL (70-99) Sodium Level 140 mmol/L (136-145) Potassium Level 3.7 mmol/L (3.5-5.1) Chloride Level 103 mmol/L (98-107) Carbon Dioxide Level 26 mmol/L (21-32) Anion Gap 11 (6-14) Blood Urea Nitrogen 80 mg/dL (7-20) Creatinine 1.6 mg/dL (0.6-1.0) Estimated GFR (Cockcroft-Gault) 34.3 BUN/Creatinine Ratio 50 (6-20) Glucose Level 130 mg/dL (70-99) Calcium Level 8.4 mg/dL (8.5-10.1) Phosphorus Level 5.2 mg/dL (2.6-4.7) Total Bilirubin 0.4 mg/dL (0.2-1.0) Aspartate Amino Transf (AST/SGOT) 23 U/L (15-37) Alanine Aminotransferase (ALT/SGPT) 12 U/L (14-59) Alkaline Phosphatase 52 U/L (46-116) Total Protein 4.9 g/dL (6.4-8.2) Albumin 2.6 g/dL (3.4-5.0) Albumin/Globulin Ratio 1.1 (1.0-1.7) Test 08/05/19 07:00 08/05/19 08:00 White Blood Count 5.8 x10^3/uL (4.0-11.0) Red Blood Count 2.40 x10^6/uL (3.50-5.40) Hemoglobin 7.6 g/dL (12.0-15.5) Hematocrit 22.8 % (36.0-47.0) Mean Corpuscular Volume 95 fL (79-100) Mean Corpuscular Hemoglobin 32 pg (25-35) Mean Corpuscular Hemoglobin Concent 33 g/dL (31-37) Red Cell Distribution Width 18.4 % (11.5-14.5) Platelet Count 498 x10^3/uL (140-400) Neutrophils (%) (Auto) 67 % (31-73) Lymphocytes (%) (Auto) 17 % (24-48) Monocytes (%) (Auto) 14 % (0-9) Eosinophils (%) (Auto) 1 % (0-3) Basophils (%) (Auto) 1 % (0-3) Neutrophils # (Auto) 3.9 x10^3/uL (1.8-7.7) Lymphocytes # (Auto) 1.0 x10^3/uL (1.0-4.8) Monocytes # (Auto) 0.8 x10^3/uL (0.0-1.1) Eosinophils # (Auto) 0.0 x10^3/uL (0.0-0.7) Basophils # (Auto) 0.0 x10^3/uL (0.0-0.2) O2 Saturation 98 % (92-99) Arterial Blood pH 7.47 (7.35-7.45) Arterial Blood pCO2 at Patient Temp 33 mmHg (35-46) Arterial Blood pO2 at Patient Temp 136 mmHg (75-108) Arterial Blood HCO3 24 mmol/L (21-28) Arterial Blood Base Excess 0 mmol/L (-3-3) FiO2 35 Micro Micro Microbiology 08/02/19 Blood Culture - Preliminary, Resulted NO GROWTH AFTER 2 DAYS 07/31/19 Urine Culture - Final, Complete 07/31/19 Urine Culture Result 1 (ALEXANDRA) - Final, Complete Review of Systems Constitutional: yes: other (ON THE VENT) Physical Exam General Appearance: other (ON THE VENT) Skin: warm Respiratory: decreased breath sounds Heart: S1S2 Abdomen: soft, bowel sounds present Genitourinary: bladder flat Extremities: pulses present, edema Neurology: other (SEDATED) Assessment Assessment IMP [id number] ANEMIA LEUCOCYTOSIS-IMPROVING ANASARCA DUE TO 3RD SPACING HYPERKALEMIA-RESOLVED ACIDOSIS AND ACIDEMIA-CONTROLLED ACUTE REPS FAILURE ACUTE PANCREATITIS HYPOALBUMINEMIA HYPOCALCEMIA-FROM SAPONIFICATION-BETTER POOR HD CATHETER FUNCTION PLAN HD TOMORROW SPA PRIOR TO TX TPN TO CONTINUE NEEDED PRBC NEEDED CONT HIRAM VENT SUPPORT ANTIBIOTICS WILL NEED LTAC WILL FOLLOW DONI GARCIA MD Aug 05, 2019 11:31
[2019-08-05] MEDS: PROCHLORPERAZINE 10 MG/2 ML VIAL. IV PRN ×2 (12:56→20:45)
[2019-08-05] MEDS: TPN PER PHARMACY MC PRN (13:35)
--- NOTE | 2019-08-05 13:35 | NUR ---
Pharmacy TPN Dosing Note S: SCOTT AVILA is a 48 year old F Currently receiving Central Continuous TPN started 07/06/19 B:Pertinent PMH: Necrotizing pancreatitis Height: 5 feet, 8 inches Weight: 101.6 kg Current diet: NPO LABS: Sodium: 140 Potassium: 3.7 Chloride: 103 Calcium: 8.4 Corrected Calcium: 9.52 Magnesium: 2 CO2: 26 SCr: 1.6 Glucose: 129-181 Albumin: 2.6 AST: 23 ALT: 12 TPN FORMULA: TPN TYPE: Central Continuous AMINO ACIDS: 125 gm DEXTROSE: 225 gm LIPIDS: 20 gm SODIUM CHLORIDE: 100 mEq POTASSIUM CHLORIDE: 20 mEq POTASSIUM PHOSPHATE: 5 mmol MAGNESIUM: 12 mEq CALCIUM: 15 mEq INSULIN: 35 units MULTIPLE VITAMIN: 10 ml TRACE ELEMENTS: 0.5 ml(s) TPN PLAN: BG better today. Decreased Kphos in TPN. BMP, Phos and Mag in AM. R: Change TPN as noted above. Will monitor electrolytes, glucose, and tolerance to TPN. MIKAYLA CHU [facility], 08/05/19 [id number]
--- NOTE | 2019-08-05 14:18 | PDOC ---
G I PROGRESS NOTE Subjective Awake, alert. Can't vocalize and I don't read lips well. Know she has questions. Physical Exam Lungs clear anteriorly. RRR Abdomen soft, distended. Review of Relevant I have reviewed the following items kolby (where applicable) has been applied. Labs Laboratory Tests Test 08/03/19 23:48 08/04/19 06:15 08/04/19 06:18 08/04/19 08:00 Glucose (Fingerstick) 158 mg/dL (70-99) 106 mg/dL (70-99) Sodium Level 139 mmol/L (136-145) Potassium Level 3.9 mmol/L (3.5-5.1) Chloride Level 102 mmol/L (98-107) Carbon Dioxide Level 25 mmol/L (21-32) Anion Gap 12 (6-14) Blood Urea Nitrogen 88 mg/dL (7-20) Creatinine 1.8 mg/dL (0.6-1.0) Estimated GFR (Cockcroft-Gault) 29.9 Glucose Level 120 mg/dL (70-99) Calcium Level 9.1 mg/dL (8.5-10.1) Phosphorus Level 5.1 mg/dL (2.6-4.7) Magnesium Level 2.0 mg/dL (1.8-2.4) O2 Saturation 97 % (92-99) Arterial Blood pH 7.45 (7.35-7.45) Arterial Blood pH (Temp corrected) 7.43 Arterial Blood pCO2 at Patient Temp 33 mmHg (35-46) Arterial Blood pCO2 (Temp correct) 35 mmHg Arterial Blood pO2 at Patient Temp 103 mmHg (75-108) Arterial Blood pO2 (Temp corrected) 114 mmHg Arterial Blood HCO3 22 mmol/L (21-28) Arterial Blood Base Excess -1 mmol/L (-3-3) FiO2 35% vent Test 08/04/19 10:00 08/04/19 19:31 08/04/19 23:53 08/05/19 06:00 White Blood Count 9.2 x10^3/uL (4.0-11.0) Red Blood Count 2.76 x10^6/uL (3.50-5.40) Hemoglobin 8.9 g/dL (12.0-15.5) Hematocrit 26.5 % (36.0-47.0) Mean Corpuscular Volume 96 fL (79-100) Mean Corpuscular Hemoglobin 32 pg (25-35) Mean Corpuscular Hemoglobin Concent 33 g/dL (31-37) Red Cell Distribution Width 18.9 % (11.5-14.5) Platelet Count 530 x10^3/uL (140-400) Neutrophils (%) (Auto) 66 % (31-73) Lymphocytes (%) (Auto) 21 % (24-48) Monocytes (%) (Auto) 12 % (0-9) Eosinophils (%) (Auto) 0 % (0-3) Basophils (%) (Auto) 1 % (0-3) Neutrophils # (Auto) 6.1 x10^3/uL (1.8-7.7) Lymphocytes # (Auto) 2.0 x10^3/uL (1.0-4.8) Monocytes # (Auto) 1.1 x10^3/uL (0.0-1.1) Eosinophils # (Auto) 0.0 x10^3/uL (0.0-0.7) Basophils # (Auto) 0.0 x10^3/uL (0.0-0.2) Glucose (Fingerstick) 142 mg/dL (70-99) 145 mg/dL (70-99) Sodium Level 140 mmol/L (136-145) Potassium Level 3.7 mmol/L (3.5-5.1) Chloride Level 103 mmol/L (98-107) Carbon Dioxide Level 26 mmol/L (21-32) Anion Gap 11 (6-14) Blood Urea Nitrogen 80 mg/dL (7-20) Creatinine 1.6 mg/dL (0.6-1.0) Estimated GFR (Cockcroft-Gault) 34.3 BUN/Creatinine Ratio 50 (6-20) Glucose Level 130 mg/dL (70-99) Calcium Level 8.4 mg/dL (8.5-10.1) Phosphorus Level 5.2 mg/dL (2.6-4.7) Total Bilirubin 0.4 mg/dL (0.2-1.0) Aspartate Amino Transf (AST/SGOT) 23 U/L (15-37) Alanine Aminotransferase (ALT/SGPT) 12 U/L (14-59) Alkaline Phosphatase 52 U/L (46-116) Total Protein 4.9 g/dL (6.4-8.2) Albumin 2.6 g/dL (3.4-5.0) Albumin/Globulin Ratio 1.1 (1.0-1.7) Test 08/05/19 06:06 08/05/19 07:00 08/05/19 08:00 08/05/19 13:08 Glucose (Fingerstick) 129 mg/dL (70-99) 181 mg/dL (70-99) White Blood Count 5.8 x10^3/uL (4.0-11.0) Red Blood Count 2.40 x10^6/uL (3.50-5.40) Hemoglobin 7.6 g/dL (12.0-15.5) Hematocrit 22.8 % (36.0-47.0) Mean Corpuscular Volume 95 fL (79-100) Mean Corpuscular Hemoglobin 32 pg (25-35) Mean Corpuscular Hemoglobin Concent 33 g/dL (31-37) Red Cell Distribution Width 18.4 % (11.5-14.5) Platelet Count 498 x10^3/uL (140-400) Neutrophils (%) (Auto) 67 % (31-73) Lymphocytes (%) (Auto) 17 % (24-48) Monocytes (%) (Auto) 14 % (0-9) Eosinophils (%) (Auto) 1 % (0-3) Basophils (%) (Auto) 1 % (0-3) Neutrophils # (Auto) 3.9 x10^3/uL (1.8-7.7) Lymphocytes # (Auto) 1.0 x10^3/uL (1.0-4.8) Monocytes # (Auto) 0.8 x10^3/uL (0.0-1.1) Eosinophils # (Auto) 0.0 x10^3/uL (0.0-0.7) Basophils # (Auto) 0.0 x10^3/uL (0.0-0.2) O2 Saturation 98 % (92-99) Arterial Blood pH 7.47 (7.35-7.45) Arterial Blood pCO2 at Patient Temp 33 mmHg (35-46) Arterial Blood pO2 at Patient Temp 136 mmHg (75-108) Arterial Blood HCO3 24 mmol/L (21-28) Arterial Blood Base Excess 0 mmol/L (-3-3) FiO2 35 Laboratory Tests Test 08/04/19 19:31 08/04/19 23:53 08/05/19 06:00 08/05/19 06:06 Glucose (Fingerstick) 142 mg/dL (70-99) 145 mg/dL (70-99) 129 mg/dL (70-99) Sodium Level 140 mmol/L (136-145) Potassium Level 3.7 mmol/L (3.5-5.1) Chloride Level 103 mmol/L (98-107) Carbon Dioxide Level 26 mmol/L (21-32) Anion Gap 11 (6-14) Blood Urea Nitrogen 80 mg/dL (7-20) Creatinine 1.6 mg/dL (0.6-1.0) Estimated GFR (Cockcroft-Gault) 34.3 BUN/Creatinine Ratio 50 (6-20) Glucose Level 130 mg/dL (70-99) Calcium Level 8.4 mg/dL (8.5-10.1) Phosphorus Level 5.2 mg/dL (2.6-4.7) Total Bilirubin 0.4 mg/dL (0.2-1.0) Aspartate Amino Transf (AST/SGOT) 23 U/L (15-37) Alanine Aminotransferase (ALT/SGPT) 12 U/L (14-59) Alkaline Phosphatase 52 U/L (46-116) Total Protein 4.9 g/dL (6.4-8.2) Albumin 2.6 g/dL (3.4-5.0) Albumin/Globulin Ratio 1.1 (1.0-1.7) Test 08/05/19 07:00 08/05/19 08:00 08/05/19 13:08 White Blood Count 5.8 x10^3/uL (4.0-11.0) Red Blood Count 2.40 x10^6/uL (3.50-5.40) Hemoglobin 7.6 g/dL (12.0-15.5) Hematocrit 22.8 % (36.0-47.0) Mean Corpuscular Volume 95 fL (79-100) Mean Corpuscular Hemoglobin 32 pg (25-35) Mean Corpuscular Hemoglobin Concent 33 g/dL (31-37) Red Cell Distribution Width 18.4 % (11.5-14.5) Platelet Count 498 x10^3/uL (140-400) Neutrophils (%) (Auto) 67 % (31-73) Lymphocytes (%) (Auto) 17 % (24-48) Monocytes (%) (Auto) 14 % (0-9) Eosinophils (%) (Auto) 1 % (0-3) Basophils (%) (Auto) 1 % (0-3) Neutrophils # (Auto) 3.9 x10^3/uL (1.8-7.7) Lymphocytes # (Auto) 1.0 x10^3/uL (1.0-4.8) Monocytes # (Auto) 0.8 x10^3/uL (0.0-1.1) Eosinophils # (Auto) 0.0 x10^3/uL (0.0-0.7) Basophils # (Auto) 0.0 x10^3/uL (0.0-0.2) O2 Saturation 98 % (92-99) Arterial Blood pH 7.47 (7.35-7.45) Arterial Blood pCO2 at Patient Temp 33 mmHg (35-46) Arterial Blood pO2 at Patient Temp 136 mmHg (75-108) Arterial Blood HCO3 24 mmol/L (21-28) Arterial Blood Base Excess 0 mmol/L (-3-3) FiO2 35 Glucose (Fingerstick) 181 mg/dL (70-99) Microbiology 08/03/19 Aerobic and Anaerobic Culture, Resulted Pending 08/03/19 Anaerobic Culture Result 1 (ALEXANDRA), Resulted Pending 08/03/19 Aerobic Culture, Resulted Pending 08/03/19 Aerobic Culture Result 1 (ALEXANDRA), Resulted Pending 08/03/19 Gram Stain - Final, Resulted 08/03/19 Gram Stain Result 1 (ALEXANDRA) - Final, Resulted 08/03/19 Gram Stain Result 2 (ALEXANDRA) - Final, Resulted 08/02/19 Blood Culture - Preliminary, Resulted NO GROWTH AFTER 2 DAYS 07/31/19 Urine Culture - Final, Complete 07/31/19 Urine Culture Result 1 (ALEXANDRA) - Final, Complete Vitals/I & O Vital Sign - Last 24 Hours 08/04/19 08/04/19 08/04/19 08/04/19 14:15 15:00 15:30 15:49 Temp 100.8 100.8 Pulse 82 76 79 Resp 22 21 20 B/P (MAP) 140/85 (103) 100/54 (69) 77/49 (58) Pulse Ox 100 O2 Delivery Ventilator Ventilator Ventilator Ventilator 08/04/19 08/04/19 08/04/19 08/04/19 16:00 16:00 16:00 17:00 Pulse 66 Resp 18 B/P (MAP) 113/66 (82) O2 Delivery Mechanical Ventilator Mechanical Ventilator Ventilator Ventilator 08/04/19 08/04/19 08/04/19 08/04/19 19:00 20:00 20:00 20:00 Temp 101.8 101.8 Pulse 82 96 Resp 22 24 B/P (MAP) 114/64 (81) 141/81 (101) Pulse Ox 99 100 99 O2 Delivery Ventilator Ventilator Mechanical Ventilator Ventilator 08/04/19 08/04/19 08/04/19 08/04/19 21:00 22:00 22:05 23:01 Pulse 81 80 Resp 18 18 18 B/P (MAP) 91/49 (63) 115/68 (84) 101/58 (72) Pulse Ox 100 100 100 100 O2 Delivery Ventilator Ventilator Ventilator Ventilator 08/05/19 08/05/19 08/05/19 08/05/19 00:00 00:00 01:00 01:40 Temp 100.9 100.9 Pulse 82 81 Resp 20 18 B/P (MAP) 102/71 (81) 104/67 (79) Pulse Ox 99 99 100 O2 Delivery Mechanical Ventilator Ventilator Ventilator Ventilator 08/05/19 08/05/19 08/05/19 08/05/19 02:00 03:00 03:31 04:00 Pulse 84 88 Resp 18 18 B/P (MAP) 115/63 (80) 119/69 (86) Pulse Ox 99 99 100 O2 Delivery Ventilator Ventilator Ventilator Mechanical Ventilator 08/05/19 08/05/19 08/05/19 08/05/19 04:00 05:00 05:33 06:00 Temp 98.1 98.1 Pulse 91 83 80 Resp 18 18 18 B/P (MAP) 122/70 (87) 108/59 (75) 174/82 (112) Pulse Ox 99 100 100 100 O2 Delivery Ventilator Ventilator Ventilator Ventilator 4/17/20 4/17/20 4/17/20 4/17/20 07:37 08:00 10:51 12:00 Pulse Ox 100 100 O2 Delivery Ventilator Mechanical Ventilator Ventilator Mechanical Ventilator Intake and Output 08/04/19 08/04/19 08/05/19 15:00 23:00 07:00 Intake Total 2202 ml 1102.2 ml Output Total 250 ml 485 ml 350 ml Balance -250 ml 1717 ml 752.2 ml Has been making more urine. Problem List Problems Medical Problems: (1) Acute pancreatitis Status: Acute (2) Cholelithiasis Status: Acute Assessment Biliary pancreatitis, severe/necrotizing with MOSF. Some things seem some better as now making urine. Plan of Care Note Continue support. Off the weekend. Coverage available if needed. Hemodynamically unstable?: No Is patient in severe pain?: No Is NPO status required?: Yes MARY RIVAS MD Aug 05, 2019 14:18
--- NOTE | 2019-08-05 16:08 | NUR ---
SS following up with discharge planning. Pt remains on vent with trach, TPN, and HD. Pt needing LTAC but self pay pt. SS discussed with Kacy in [facility]. She reported that pt has no DPOA and they have been provided with no financial information for pt. She reported that pt's daughters are still awaiting court order to obtain financial information for pt. SS will continue to follow for discharge planning.
[2019-08-05] MEDS ORDERED: AMINO ACID IV SCH ×11 (22:00)
[2019-08-05] MEDS ORDERED: [UNRECOGNIZED DRUG - OTHER] IV SCH ×11 (22:00)
[2019-08-05] MEDS ORDERED: DEXTROSE 70% IV SCH ×11 (22:00)
[2019-08-05] MEDS ORDERED: TOTAL PARENTERAL NUTRITION IV SCH ×11 (22:00)
[2019-08-06] VITALS (24 sets, daily range): BP systolic 98–185; BP diastolic 53–98
[2019-08-06] MEDS: DEXMEDETOMIDINE 400 MCG in IV NORMAL SALINE 100ML 96 ML IV PRN ×7 (00:10→22:57)
[2019-08-06] MEDS: INSULIN LISPRO 300 UNITS/3 ML VIAL. SQ SCH ×4 (06:00→18:00)
[2019-08-06 07:02] LABS: ALBUMIN 2.6 g/dL (3.4-5.0); CALCIUM 8.6 mg/dL (8.5-10.1); CREATININE 1.9 mg/dL (0.6-1.0); GFR 28.1; MAGNESIUM 1.7 mg/dL (1.8-2.4); PHOSPHORUS 5.2 mg/dL (2.6-4.7); POTASSIUM 3.3 mmol/L (3.5-5.1); TOTAL BILIRUBIN 0.4 mg/dL (0.2-1.0); TOTAL PROTEIN 5.1 g/dL (6.4-8.2)
--- NOTE | 2019-08-06 07:17 | PDOC ---
PULMONARY PROGRESS NOTES Subjective Patient intubated on 07/10 , s/p trach 07/24, on AC mode, alert follow commands, on precedex. small ett secretion, tolerated ps 8 hrs yesterday S/P paracentisis with 4 liters removed on 08/03/19 Vitals Vital Signs Date Time Temp Pulse Resp B/P (MAP) Pulse Ox O2 Delivery O2 Flow Rate FiO2 08/06/19 06:00 90 18 136/71 (92) 100 Ventilator 08/06/19 04:00 99.5 99.5 ROS: No Nausea, No Chest Pain, No Abdominal Pain, No Increase Cough General: Alert Lungs: Other (dimished in BLL) Cardiovascular: S1, S2 Abdomen: Non-tender, Other (distended) Extremities: Other (+3 generalized edema ) Skin: Warm, Dry Labs Laboratory Tests Test 08/04/19 08:00 08/04/19 10:00 08/04/19 19:31 08/04/19 23:53 O2 Saturation 97 % (92-99) Arterial Blood pH 7.45 (7.35-7.45) Arterial Blood pH (Temp corrected) 7.43 Arterial Blood pCO2 at Patient Temp 33 mmHg (35-46) Arterial Blood pCO2 (Temp correct) 35 mmHg Arterial Blood pO2 at Patient Temp 103 mmHg (75-108) Arterial Blood pO2 (Temp corrected) 114 mmHg Arterial Blood HCO3 22 mmol/L (21-28) Arterial Blood Base Excess -1 mmol/L (-3-3) FiO2 35% vent White Blood Count 9.2 x10^3/uL (4.0-11.0) Red Blood Count 2.76 x10^6/uL (3.50-5.40) Hemoglobin 8.9 g/dL (12.0-15.5) Hematocrit 26.5 % (36.0-47.0) Mean Corpuscular Volume 96 fL (79-100) Mean Corpuscular Hemoglobin 32 pg (25-35) Mean Corpuscular Hemoglobin Concent 33 g/dL (31-37) Red Cell Distribution Width 18.9 % (11.5-14.5) Platelet Count 530 x10^3/uL (140-400) Neutrophils (%) (Auto) 66 % (31-73) Lymphocytes (%) (Auto) 21 % (24-48) Monocytes (%) (Auto) 12 % (0-9) Eosinophils (%) (Auto) 0 % (0-3) Basophils (%) (Auto) 1 % (0-3) Neutrophils # (Auto) 6.1 x10^3/uL (1.8-7.7) Lymphocytes # (Auto) 2.0 x10^3/uL (1.0-4.8) Monocytes # (Auto) 1.1 x10^3/uL (0.0-1.1) Eosinophils # (Auto) 0.0 x10^3/uL (0.0-0.7) Basophils # (Auto) 0.0 x10^3/uL (0.0-0.2) Glucose (Fingerstick) 142 mg/dL (70-99) 145 mg/dL (70-99) Test 08/05/19 06:00 08/05/19 06:06 08/05/19 07:00 08/05/19 08:00 Sodium Level 140 mmol/L (136-145) Potassium Level 3.7 mmol/L (3.5-5.1) Chloride Level 103 mmol/L (98-107) Carbon Dioxide Level 26 mmol/L (21-32) Anion Gap 11 (6-14) Blood Urea Nitrogen 80 mg/dL (7-20) Creatinine 1.6 mg/dL (0.6-1.0) Estimated GFR (Cockcroft-Gault) 34.3 BUN/Creatinine Ratio 50 (6-20) Glucose Level 130 mg/dL (70-99) Calcium Level 8.4 mg/dL (8.5-10.1) Phosphorus Level 5.2 mg/dL (2.6-4.7) Total Bilirubin 0.4 mg/dL (0.2-1.0) Aspartate Amino Transf (AST/SGOT) 23 U/L (15-37) Alanine Aminotransferase (ALT/SGPT) 12 U/L (14-59) Alkaline Phosphatase 52 U/L (46-116) Total Protein 4.9 g/dL (6.4-8.2) Albumin 2.6 g/dL (3.4-5.0) Albumin/Globulin Ratio 1.1 (1.0-1.7) Glucose (Fingerstick) 129 mg/dL (70-99) White Blood Count 5.8 x10^3/uL (4.0-11.0) Red Blood Count 2.40 x10^6/uL (3.50-5.40) Hemoglobin 7.6 g/dL (12.0-15.5) Hematocrit 22.8 % (36.0-47.0) Mean Corpuscular Volume 95 fL (79-100) Mean Corpuscular Hemoglobin 32 pg (25-35) Mean Corpuscular Hemoglobin Concent 33 g/dL (31-37) Red Cell Distribution Width 18.4 % (11.5-14.5) Platelet Count 498 x10^3/uL (140-400) Neutrophils (%) (Auto) 67 % (31-73) Lymphocytes (%) (Auto) 17 % (24-48) Monocytes (%) (Auto) 14 % (0-9) Eosinophils (%) (Auto) 1 % (0-3) Basophils (%) (Auto) 1 % (0-3) Neutrophils # (Auto) 3.9 x10^3/uL (1.8-7.7) Lymphocytes # (Auto) 1.0 x10^3/uL (1.0-4.8) Monocytes # (Auto) 0.8 x10^3/uL (0.0-1.1) Eosinophils # (Auto) 0.0 x10^3/uL (0.0-0.7) Basophils # (Auto) 0.0 x10^3/uL (0.0-0.2) O2 Saturation 98 % (92-99) Arterial Blood pH 7.47 (7.35-7.45) Arterial Blood pCO2 at Patient Temp 33 mmHg (35-46) Arterial Blood pO2 at Patient Temp 136 mmHg (75-108) Arterial Blood HCO3 24 mmol/L (21-28) Arterial Blood Base Excess 0 mmol/L (-3-3) FiO2 35 Test 08/05/19 13:08 08/05/19 17:06 08/06/19 06:10 Glucose (Fingerstick) 181 mg/dL (70-99) 146 mg/dL (70-99) Sodium Level 141 mmol/L (136-145) Potassium Level 3.3 mmol/L (3.5-5.1) Chloride Level 103 mmol/L (98-107) Carbon Dioxide Level 25 mmol/L (21-32) Anion Gap 13 (6-14) Blood Urea Nitrogen 92 mg/dL (7-20) Creatinine 1.9 mg/dL (0.6-1.0) Estimated GFR (Cockcroft-Gault) 28.1 BUN/Creatinine Ratio 48 (6-20) Glucose Level 152 mg/dL (70-99) Calcium Level 8.6 mg/dL (8.5-10.1) Phosphorus Level 5.2 mg/dL (2.6-4.7) Magnesium Level 1.7 mg/dL (1.8-2.4) Total Bilirubin 0.4 mg/dL (0.2-1.0) Aspartate Amino Transf (AST/SGOT) 23 U/L (15-37) Alanine Aminotransferase (ALT/SGPT) 11 U/L (14-59) Alkaline Phosphatase 49 U/L (46-116) Total Protein 5.1 g/dL (6.4-8.2) Albumin 2.6 g/dL (3.4-5.0) Albumin/Globulin Ratio 1.0 (1.0-1.7) Laboratory Tests Test 08/05/19 08:00 08/05/19 13:08 08/05/19 17:06 08/06/19 06:10 O2 Saturation 98 % (92-99) Arterial Blood pH 7.47 (7.35-7.45) Arterial Blood pCO2 at Patient Temp 33 mmHg (35-46) Arterial Blood pO2 at Patient Temp 136 mmHg (75-108) Arterial Blood HCO3 24 mmol/L (21-28) Arterial Blood Base Excess 0 mmol/L (-3-3) FiO2 35 Glucose (Fingerstick) 181 mg/dL (70-99) 146 mg/dL (70-99) Sodium Level 141 mmol/L (136-145) Potassium Level 3.3 mmol/L (3.5-5.1) Chloride Level 103 mmol/L (98-107) Carbon Dioxide Level 25 mmol/L (21-32) Anion Gap 13 (6-14) Blood Urea Nitrogen 92 mg/dL (7-20) Creatinine 1.9 mg/dL (0.6-1.0) Estimated GFR (Cockcroft-Gault) 28.1 BUN/Creatinine Ratio 48 (6-20) Glucose Level 152 mg/dL (70-99) Calcium Level 8.6 mg/dL (8.5-10.1) Phosphorus Level 5.2 mg/dL (2.6-4.7) Magnesium Level 1.7 mg/dL (1.8-2.4) Total Bilirubin 0.4 mg/dL (0.2-1.0) Aspartate Amino Transf (AST/SGOT) 23 U/L (15-37) Alanine Aminotransferase (ALT/SGPT) 11 U/L (14-59) Alkaline Phosphatase 49 U/L (46-116) Total Protein 5.1 g/dL (6.4-8.2) Albumin 2.6 g/dL (3.4-5.0) Albumin/Globulin Ratio 1.0 (1.0-1.7) Medications Active Scripts Medications Dose Route/Sig Max Daily Dose Days Date Category Bisoprolol Fumarate 5 Mg Tablet 10 Mg PO DAILY 07/04/19 Reported Impression . IMPRESSION: 1. Acute hypoxemic respiratory failure secondary to ARDS status post trach, 2. Gallstone pancreatitis.with NECROSIS, NOT A SURGICAL CANDIDATE 3. Severe metabolic acidosis.stable 4. Acute kidney injury-stable, ON HD-- continue to improve 5. Acute gallstone pancreatitis. 6. Hypoalbuminemia. 7. Moderate persistent effusions 8. Fever-resolved 9. Chronic anemia 10. Covid 19 testing negative 11. Moderate to large ascites-S/P paracentisis 1 Plan . Cont. ventilatory support, ABG reviewed 35%/PEEP 5, weaning as tolerated, monitor resp status closely, Place back on A/C mod at HS hep sq and protonix for prophylaxis Follow surgery recs Follow ID rec, abx per id Follow nephrology recs Tolerated paracentesis well removed 4 liters on continue TPN for nutrition DVT/GI PPX d/w RN/RT TEN WHITFIELD MD Aug 06, 2019 07:17
[2019-08-06 07:21] LABS: BASO % 0 % (0-3); EOS % 0 % (0-3); HEMATOCRIT 21.1 % (36.0-47.0); HEMOGLOBIN 7.1 g/dL (12.0-15.5); LYMPH # 0.7 x10^3/uL (1.0-4.8); LYMPH % 12 % (24-48); MEAN CORPUSCULAR HEMOGLOBIN 32 pg (25-35); MEAN CORPUSCULAR HGB CONC 33 g/dL (31-37); MEAN CORPUSCULAR VOLUME 95 fL (79-100); MONO # 0.9 x10^3/uL (0.0-1.1); MONO % 14 % (0-9); NEUT # 4.7 x10^3/uL (1.8-7.7); NEUT % 74 % (31-73); PLATELET COUNT 539 x10^3/uL (140-400); RED BLOOD COUNT 2.23 x10^6/uL (3.50-5.40); RED CELL DISTRIBUTION WIDTH 18.1 % (11.5-14.5); WHITE BLOOD COUNT 6.3 x10^3/uL (4.0-11.0)
--- NOTE | 2019-08-06 07:53 | PDOC ---
PROGRESS NOTES Chief Complaint Chief Complaint A/P: Respiratory failure requiring mechanical ventilation (on vent since 07/10) bilateral pleural effusions/pulm edema Sepsis Severe Acute gallstone pancreatitis (not a surgical candidate at this time) with necrosis Acute kidney failure now requiring dialysis Salpingitis Gallstones (Calculus of gallbladder with acute cholecystitis without obstruction) HTN Leukocytosis Hypoxia Uterine fibroid Intractable pain Intractable nausea Covid 19 negative. Acute on chronic anemia EEG: No seizure activity. ESRD on HD Hyperglycemia, persistently in 200s History of Present Illness History of Present Illness Ms Diaz is a 48yo F w/ PMHx HTN, prediabetes who presented to the emergency room with complaints of abdominal pain on 07/04/2019. Found with Lipase 59815, AST 401, ALT 249, Bilirubin 1.4. CT abdomen confirms pancreatic inflammation, peripancreatic fluid and inflammatory changes around the pancreas consistent with pancreatitis. Cholelithiasis and 1.4cm uterine fibroid as well as possible left salpingitis. Admitted for further care GI, General surgery, ID, Pulm consulted. 07/04: No urine output. Added dilaudid for pain, PICC placed per IR. Renal US negative.Seen bedside in ICU, given 2L additional NSS and albumin infusion. Still hypotensive, started on levophed. Repeat CT abdomen with necrosis. 07/05: O2 saturation 87% on nasal cannula oxygen. Dialysis catheter per nephrology 07/06: She is now on BiPAP appears more ill, now on dialysis 07/07: Seen on BiPAP. Her mother and another family member are present and seemed to be good support for her. Currently on dialysis. Appears critically ill 07/08: Overnight Tmax 101.7 , still on BiPAP FiO2 40%, still on low dose Levophed gtt, TPN initiated. On dialysis 07/24: Tracheostomy 07/30: S/p tracheostomy on vent spontaneous respirations with 5 of pressure support 35% FiO2, rectal tube and a Lind, off pressors 07/31: Off pressors. Seen on dialysis this morning. BUN 80. Tracking with her eyes. Still on vent via trach. 08/01: BUN 68, Cr 1.7. Temp 100.2F axillary. WBC 9.8. Still on vent via trach. Tracking reasonably well. In obvious discomfort. Removed PICC and CVC LIJ and replaced. Tips sent for culture. CT chest/abd/pelvis with bilateral pleural effusion and ascites. 08/02: Renal function stable. Still on vent. More interactive today. Miming wish for food. Plan discussed for thoracentesis/paracentesis with daughters today. They were under impression patient was doing worse due to a miscommunication which has been clarified over the phone. 4.3L removed. 08/03: BUN 88, Cr 1.8. Much more interactive today. Appears more comfortable today. 08/04: Febrile overnight 101.8F. More interactive, still on vent. Asking for ice by miming. Afebrile overnight. TMax last 24 hours 100.6F. Hb 7.1. Interactive when awake. Plan: Cont vent weaning, dialysis Trach shield during day if ok with pulm. Would recommend ABG after 4 hours to r/o CO2 retention, however and still vent overnight Vitals Vitals Vital Signs Date Time Temp Pulse Resp B/P (MAP) Pulse Ox O2 Delivery O2 Flow Rate FiO2 08/06/19 06:00 90 18 136/71 (92) 100 Ventilator 08/06/19 04:00 99.5 99.5 Physical Exam Physical Exam GENERAL: Alert and coop. mouthing words Appears comfortable has generalized anasarca - s/p suctioning with RT. Feels warm HEENT: Pupils equal, + NGT, oral cavity dry NECK: Trach/vent LUNGS: Diminished aeration HEART: S1, S2, regular ABDOMEN: Less Distended, hypoactive BS, : Lind changed 08/01 EXTREMITIES: Generalized edema, no cyanosis, SCDs bilaterally DERMATOLOGIC: Warm and dry. No generalized rash. CENTRAL NERVOUS SYSTEM: Responsive and seems appropriate HDC, LIJ (08/01) and RUE-PICC removed 08/01 General: Alert, No acute distress Heart: Other (increased rate) Lungs: Other (dimished in BLL) Abdomen: Soft, No tenderness Extremities: No edema, Other (SOME CLUBBING ) Skin: Other (mottling noted to extremities ) Labs LABS Laboratory Tests Test 08/05/19 08:00 08/05/19 13:08 08/05/19 17:06 08/06/19 06:10 O2 Saturation 98 % (92-99) Arterial Blood pH 7.47 (7.35-7.45) Arterial Blood pCO2 at Patient Temp 33 mmHg (35-46) Arterial Blood pO2 at Patient Temp 136 mmHg (75-108) Arterial Blood HCO3 24 mmol/L (21-28) Arterial Blood Base Excess 0 mmol/L (-3-3) FiO2 35 Glucose (Fingerstick) 181 mg/dL (70-99) 146 mg/dL (70-99) White Blood Count 6.3 x10^3/uL (4.0-11.0) Red Blood Count 2.23 x10^6/uL (3.50-5.40) Hemoglobin 7.1 g/dL (12.0-15.5) Hematocrit 21.1 % (36.0-47.0) Mean Corpuscular Volume 95 fL (79-100) Mean Corpuscular Hemoglobin 32 pg (25-35) Mean Corpuscular Hemoglobin Concent 33 g/dL (31-37) Red Cell Distribution Width 18.1 % (11.5-14.5) Platelet Count 539 x10^3/uL (140-400) Neutrophils (%) (Auto) 74 % (31-73) Lymphocytes (%) (Auto) 12 % (24-48) Monocytes (%) (Auto) 14 % (0-9) Eosinophils (%) (Auto) 0 % (0-3) Basophils (%) (Auto) 0 % (0-3) Neutrophils # (Auto) 4.7 x10^3/uL (1.8-7.7) Lymphocytes # (Auto) 0.7 x10^3/uL (1.0-4.8) Monocytes # (Auto) 0.9 x10^3/uL (0.0-1.1) Eosinophils # (Auto) 0.0 x10^3/uL (0.0-0.7) Basophils # (Auto) 0.0 x10^3/uL (0.0-0.2) Sodium Level 141 mmol/L (136-145) Potassium Level 3.3 mmol/L (3.5-5.1) Chloride Level 103 mmol/L (98-107) Carbon Dioxide Level 25 mmol/L (21-32) Anion Gap 13 (6-14) Blood Urea Nitrogen 92 mg/dL (7-20) Creatinine 1.9 mg/dL (0.6-1.0) Estimated GFR (Cockcroft-Gault) 28.1 BUN/Creatinine Ratio 48 (6-20) Glucose Level 152 mg/dL (70-99) Calcium Level 8.6 mg/dL (8.5-10.1) Phosphorus Level 5.2 mg/dL (2.6-4.7) Magnesium Level 1.7 mg/dL (1.8-2.4) Total Bilirubin 0.4 mg/dL (0.2-1.0) Aspartate Amino Transf (AST/SGOT) 23 U/L (15-37) Alanine Aminotransferase (ALT/SGPT) 11 U/L (14-59) Alkaline Phosphatase 49 U/L (46-116) Total Protein 5.1 g/dL (6.4-8.2) Albumin 2.6 g/dL (3.4-5.0) Albumin/Globulin Ratio 1.0 (1.0-1.7) Test 08/06/19 07:17 Glucose (Fingerstick) 137 mg/dL (70-99) Assessment and Plan Assessmemt and Plan Problems Medical Problems: (1) Acute pancreatitis Status: Acute (2) Cholelithiasis Status: Acute Comment Review of Relevant I have reviewed the following items kolby (where applicable) has been applied. Labs Laboratory Tests Test 08/04/19 08:00 08/04/19 10:00 08/04/19 19:31 08/04/19 23:53 O2 Saturation 97 % (92-99) Arterial Blood pH 7.45 (7.35-7.45) Arterial Blood pH (Temp corrected) 7.43 Arterial Blood pCO2 at Patient Temp 33 mmHg (35-46) Arterial Blood pCO2 (Temp correct) 35 mmHg Arterial Blood pO2 at Patient Temp 103 mmHg (75-108) Arterial Blood pO2 (Temp corrected) 114 mmHg Arterial Blood HCO3 22 mmol/L (21-28) Arterial Blood Base Excess -1 mmol/L (-3-3) FiO2 35% vent White Blood Count 9.2 x10^3/uL (4.0-11.0) Red Blood Count 2.76 x10^6/uL (3.50-5.40) Hemoglobin 8.9 g/dL (12.0-15.5) Hematocrit 26.5 % (36.0-47.0) Mean Corpuscular Volume 96 fL (79-100) Mean Corpuscular Hemoglobin 32 pg (25-35) Mean Corpuscular Hemoglobin Concent 33 g/dL (31-37) Red Cell Distribution Width 18.9 % (11.5-14.5) Platelet Count 530 x10^3/uL (140-400) Neutrophils (%) (Auto) 66 % (31-73) Lymphocytes (%) (Auto) 21 % (24-48) Monocytes (%) (Auto) 12 % (0-9) Eosinophils (%) (Auto) 0 % (0-3) Basophils (%) (Auto) 1 % (0-3) Neutrophils # (Auto) 6.1 x10^3/uL (1.8-7.7) Lymphocytes # (Auto) 2.0 x10^3/uL (1.0-4.8) Monocytes # (Auto) 1.1 x10^3/uL (0.0-1.1) Eosinophils # (Auto) 0.0 x10^3/uL (0.0-0.7) Basophils # (Auto) 0.0 x10^3/uL (0.0-0.2) Glucose (Fingerstick) 142 mg/dL (70-99) 145 mg/dL (70-99) Test 08/05/19 06:00 08/05/19 06:06 08/05/19 07:00 08/05/19 08:00 Sodium Level 140 mmol/L (136-145) Potassium Level 3.7 mmol/L (3.5-5.1) Chloride Level 103 mmol/L (98-107) Carbon Dioxide Level 26 mmol/L (21-32) Anion Gap 11 (6-14) Blood Urea Nitrogen 80 mg/dL (7-20) Creatinine 1.6 mg/dL (0.6-1.0) Estimated GFR (Cockcroft-Gault) 34.3 BUN/Creatinine Ratio 50 (6-20) Glucose Level 130 mg/dL (70-99) Calcium Level 8.4 mg/dL (8.5-10.1) Phosphorus Level 5.2 mg/dL (2.6-4.7) Total Bilirubin 0.4 mg/dL (0.2-1.0) Aspartate Amino Transf (AST/SGOT) 23 U/L (15-37) Alanine Aminotransferase (ALT/SGPT) 12 U/L (14-59) Alkaline Phosphatase 52 U/L (46-116) Total Protein 4.9 g/dL (6.4-8.2) Albumin 2.6 g/dL (3.4-5.0) Albumin/Globulin Ratio 1.1 (1.0-1.7) Glucose (Fingerstick) 129 mg/dL (70-99) White Blood Count 5.8 x10^3/uL (4.0-11.0) Red Blood Count 2.40 x10^6/uL (3.50-5.40) Hemoglobin 7.6 g/dL (12.0-15.5) Hematocrit 22.8 % (36.0-47.0) Mean Corpuscular Volume 95 fL (79-100) Mean Corpuscular Hemoglobin 32 pg (25-35) Mean Corpuscular Hemoglobin Concent 33 g/dL (31-37) Red Cell Distribution Width 18.4 % (11.5-14.5) Platelet Count 498 x10^3/uL (140-400) Neutrophils (%) (Auto) 67 % (31-73) Lymphocytes (%) (Auto) 17 % (24-48) Monocytes (%) (Auto) 14 % (0-9) Eosinophils (%) (Auto) 1 % (0-3) Basophils (%) (Auto) 1 % (0-3) Neutrophils # (Auto) 3.9 x10^3/uL (1.8-7.7) Lymphocytes # (Auto) 1.0 x10^3/uL (1.0-4.8) Monocytes # (Auto) 0.8 x10^3/uL (0.0-1.1) Eosinophils # (Auto) 0.0 x10^3/uL (0.0-0.7) Basophils # (Auto) 0.0 x10^3/uL (0.0-0.2) O2 Saturation 98 % (92-99) Arterial Blood pH 7.47 (7.35-7.45) Arterial Blood pCO2 at Patient Temp 33 mmHg (35-46) Arterial Blood pO2 at Patient Temp 136 mmHg (75-108) Arterial Blood HCO3 24 mmol/L (21-28) Arterial Blood Base Excess 0 mmol/L (-3-3) FiO2 35 Test 08/05/19 13:08 08/05/19 17:06 08/06/19 06:10 08/06/19 07:17 Glucose (Fingerstick) 181 mg/dL (70-99) 146 mg/dL (70-99) 137 mg/dL (70-99) White Blood Count 6.3 x10^3/uL (4.0-11.0) Red Blood Count 2.23 x10^6/uL (3.50-5.40) Hemoglobin 7.1 g/dL (12.0-15.5) Hematocrit 21.1 % (36.0-47.0) Mean Corpuscular Volume 95 fL (79-100) Mean Corpuscular Hemoglobin 32 pg (25-35) Mean Corpuscular Hemoglobin Concent 33 g/dL (31-37) Red Cell Distribution Width 18.1 % (11.5-14.5) Platelet Count 539 x10^3/uL (140-400) Neutrophils (%) (Auto) 74 % (31-73) Lymphocytes (%) (Auto) 12 % (24-48) Monocytes (%) (Auto) 14 % (0-9) Eosinophils (%) (Auto) 0 % (0-3) Basophils (%) (Auto) 0 % (0-3) Neutrophils # (Auto) 4.7 x10^3/uL (1.8-7.7) Lymphocytes # (Auto) 0.7 x10^3/uL (1.0-4.8) Monocytes # (Auto) 0.9 x10^3/uL (0.0-1.1) Eosinophils # (Auto) 0.0 x10^3/uL (0.0-0.7) Basophils # (Auto) 0.0 x10^3/uL (0.0-0.2) Sodium Level 141 mmol/L (136-145) Potassium Level 3.3 mmol/L (3.5-5.1) Chloride Level 103 mmol/L (98-107) Carbon Dioxide Level 25 mmol/L (21-32) Anion Gap 13 (6-14) Blood Urea Nitrogen 92 mg/dL (7-20) Creatinine 1.9 mg/dL (0.6-1.0) Estimated GFR (Cockcroft-Gault) 28.1 BUN/Creatinine Ratio 48 (6-20) Glucose Level 152 mg/dL (70-99) Calcium Level 8.6 mg/dL (8.5-10.1) Phosphorus Level 5.2 mg/dL (2.6-4.7) Magnesium Level 1.7 mg/dL (1.8-2.4) Total Bilirubin 0.4 mg/dL (0.2-1.0) Aspartate Amino Transf (AST/SGOT) 23 U/L (15-37) Alanine Aminotransferase (ALT/SGPT) 11 U/L (14-59) Alkaline Phosphatase 49 U/L (46-116) Total Protein 5.1 g/dL (6.4-8.2) Albumin 2.6 g/dL (3.4-5.0) Albumin/Globulin Ratio 1.0 (1.0-1.7) Laboratory Tests Test 08/05/19 08:00 08/05/19 13:08 08/05/19 17:06 08/06/19 06:10 O2 Saturation 98 % (92-99) Arterial Blood pH 7.47 (7.35-7.45) Arterial Blood pCO2 at Patient Temp 33 mmHg (35-46) Arterial Blood pO2 at Patient Temp 136 mmHg (75-108) Arterial Blood HCO3 24 mmol/L (21-28) Arterial Blood Base Excess 0 mmol/L (-3-3) FiO2 35 Glucose (Fingerstick) 181 mg/dL (70-99) 146 mg/dL (70-99) White Blood Count 6.3 x10^3/uL (4.0-11.0) Red Blood Count 2.23 x10^6/uL (3.50-5.40) Hemoglobin 7.1 g/dL (12.0-15.5) Hematocrit 21.1 % (36.0-47.0) Mean Corpuscular Volume 95 fL (79-100) Mean Corpuscular Hemoglobin 32 pg (25-35) Mean Corpuscular Hemoglobin Concent 33 g/dL (31-37) Red Cell Distribution Width 18.1 % (11.5-14.5) Platelet Count 539 x10^3/uL (140-400) Neutrophils (%) (Auto) 74 % (31-73) Lymphocytes (%) (Auto) 12 % (24-48) Monocytes (%) (Auto) 14 % (0-9) Eosinophils (%) (Auto) 0 % (0-3) Basophils (%) (Auto) 0 % (0-3) Neutrophils # (Auto) 4.7 x10^3/uL (1.8-7.7) Lymphocytes # (Auto) 0.7 x10^3/uL (1.0-4.8) Monocytes # (Auto) 0.9 x10^3/uL (0.0-1.1) Eosinophils # (Auto) 0.0 x10^3/uL (0.0-0.7) Basophils # (Auto) 0.0 x10^3/uL (0.0-0.2) Sodium Level 141 mmol/L (136-145) Potassium Level 3.3 mmol/L (3.5-5.1) Chloride Level 103 mmol/L (98-107) Carbon Dioxide Level 25 mmol/L (21-32) Anion Gap 13 (6-14) Blood Urea Nitrogen 92 mg/dL (7-20) Creatinine 1.9 mg/dL (0.6-1.0) Estimated GFR (Cockcroft-Gault) 28.1 BUN/Creatinine Ratio 48 (6-20) Glucose Level 152 mg/dL (70-99) Calcium Level 8.6 mg/dL (8.5-10.1) Phosphorus Level 5.2 mg/dL (2.6-4.7) Magnesium Level 1.7 mg/dL (1.8-2.4) Total Bilirubin 0.4 mg/dL (0.2-1.0) Aspartate Amino Transf (AST/SGOT) 23 U/L (15-37) Alanine Aminotransferase (ALT/SGPT) 11 U/L (14-59) Alkaline Phosphatase 49 U/L (46-116) Total Protein 5.1 g/dL (6.4-8.2) Albumin 2.6 g/dL (3.4-5.0) Albumin/Globulin Ratio 1.0 (1.0-1.7) Test 08/06/19 07:17 Glucose (Fingerstick) 137 mg/dL (70-99) Microbiology 08/03/19 Aerobic and Anaerobic Culture, Resulted Pending 08/03/19 Anaerobic Culture Result 1 (ALEXANDRA), Resulted Pending 08/03/19 Aerobic Culture, Resulted Pending 08/03/19 Aerobic Culture Result 1 (ALEXANDRA), Resulted Pending 08/03/19 Gram Stain - Final, Resulted 08/03/19 Gram Stain Result 1 (ALEXANDRA) - Final, Resulted 08/03/19 Gram Stain Result 2 (ALEXANDRA) - Final, Resulted 08/02/19 Blood Culture - Preliminary, Resulted NO GROWTH AFTER 3 DAYS 07/31/19 Urine Culture - Final, Complete 07/31/19 Urine Culture Result 1 (ALEXANDRA) - Final, Complete Medications Current Medications Sodium Chloride 1,000 ml @ 1,000 mls/hr Q1H IV Last administered on 07/04/19at 03:00; Start 07/04/19 at 03:00; Stop 07/04/19 at 03:59; Status DC Ondansetron HCl (Zofran) 4 mg 1X ONCE IVP Last administered on 07/04/19at 03:27; Start 07/04/19 at 03:00; Stop 07/04/19 at 03:01; Status DC Morphine Sulfate (Morphine Sulfate) 4 mg 1X ONCE IV ; Start 07/04/19 at 03:00; Stop 07/04/19 at 03:01; Status Cancel Ketorolac Tromethamine (Toradol 30mg Vial) 30 mg 1X ONCE IV Last administered on 07/04/19at 02:54; Start 07/04/19 at 03:00; Stop 07/04/19 at 03:01; Status DC Fentanyl Citrate (Fentanyl 2ml Vial) 25 mcg 1X ONCE IVP Last administered on 07/04/19at 03:23; Start 07/04/19 at 03:30; Stop 07/04/19 at 03:31; Status DC Fentanyl Citrate (Fentanyl 2ml Vial) 100 mcg STK-MED ONCE .ROUTE ; Start 07/04/19 at 03:18; Stop 07/04/19 at 03:18; Status DC Iohexol (Omnipaque 350 Mg/ml) 90 ml 1X ONCE IV Last administered on 07/04/19at 03:25; Start 07/04/19 at 03:30; Stop 07/04/19 at 03:31; Status DC Info (CONTRAST GIVEN -- Rx MONITORING) 1 each PRN DAILY PRN MC SEE COMMENTS; Start 07/04/19 at 03:30; Stop 07/06/19 at 03:29; Status DC Hydromorphone HCl (Dilaudid) 0.5 mg 1X ONCE IV Last administered on 07/04/19at 03:55; Start 07/04/19 at 04:30; Stop 07/04/19 at 04:32; Status DC Ondansetron HCl (Zofran) 4 mg PRN Q8HRS PRN IV NAUSEA/VOMITING 1ST CHOICE; Start 07/04/19 at 05:00; Stop 07/04/19 at 09:27; Status DC Morphine Sulfate (Morphine Sulfate) 2 mg PRN Q2HR PRN IV SEVERE PAIN 7-10 Last administered on 07/05/19at 12:26; Start 07/04/19 at 05:00; Stop 07/05/19 at 14:15; Status DC Sodium Chloride 1,000 ml @ 125 mls/hr Q8H IV Last administered on 07/04/19at 20:56; Start 07/04/19 at 05:00; Stop 07/05/19 at 04:59; Status DC Hydromorphone HCl (Dilaudid) 0.5 mg PRN Q3HRS PRN IV SEVERE PAIN 7-10 Last administered on 07/05/19at 10:06; Start 07/04/19 at 05:00; Stop 07/05/19 at 12:01; Status DC Piperacillin Sod/ Tazobactam Sod 4.5 gm/Sodium Chloride 100 ml @ 200 mls/hr 1X ONCE IV Last administered on 07/04/19at 05:44; Start 07/04/19 at 06:00; Stop 07/04/19 at 06:29; Status DC Ondansetron HCl (Zofran) 4 mg PRN Q4HRS PRN IV NAUSEA/VOMITING 1ST CHOICE Last administered on 08/05/19at 18:01; Start 07/04/19 at 09:30 Insulin Human Lispro (HumaLOG) 0-9 UNITS Q6HRS SQ Last administered on 08/05/19at 12:00; Start 07/04/19 at 09:30 Dextrose (Dextrose 50%-Water Syringe) 12.5 gm PRN Q15MIN PRN IV SEE COMMENTS; Start 07/04/19 at 09:30 Pantoprazole Sodium (PROTONIX VIAL for IV PUSH) 40 mg DAILYAC IVP Last administered on 08/05/19at 09:49; Start 07/04/19 at 11:30 Prochlorperazine Edisylate (Compazine) 10 mg PRN Q6HRS PRN IV NAUSEA/VOMITING, 2nd CHOICE Last administered on 08/05/19at 20:45; Start 07/04/19 at 17:45 Atenolol (Tenormin) 100 mg DAILY PO ; Start 07/05/19 at 09:00; Stop 07/04/19 at 20:08; Status DC Metoprolol Tartrate (Lopressor Vial) 2.5 mg Q6HRS IVP Last administered on 07/05/19at 05:51; Start 07/04/19 at 20:15; Stop 07/05/19 at 10:02; Status DC Metoprolol Tartrate (Lopressor Vial) 5 mg Q6HRS IVP Last administered on 07/14/19at 00:12; Start 07/05/19 at 10:15; Stop 07/16/19 at 08:48; Status DC Hydromorphone HCl (Dilaudid) 1 mg PRN Q3HRS PRN IV SEVERE PAIN 7-10 Last administered on 07/11/19at 05:13; Start 07/05/19 at 12:00; Stop 07/19/19 at 00:25; Status DC Lidocaine HCl (Buffered Lidocaine 1%) 3 ml STK-MED ONCE .ROUTE ; Start 07/05/19 at 12:55; Stop 07/05/19 at 12:56; Status DC Albumin Human 500 ml @ 125 mls/hr 1X ONCE IV Last administered on 07/05/19at 14:33; Start 07/05/19 at 14:30; Stop 07/05/19 at 18:32; Status DC Norepinephrine Bitartrate 8 mg/ Dextrose 258 ml @ 17.299 mls/ hr CONT PRN IV PER PROTOCOL Last administered on 08/02/19at 12:48; Start 07/05/19 at 15:30; Stop 08/05/19 at 09:19; Status DC Sodium Chloride 1,000 ml @ 125 mls/hr Q8H IV Last administered on 07/05/19at 21:04; Start 07/05/19 at 16:00; Stop 07/06/19 at 02:42; Status DC Albumin Human 500 ml @ 125 mls/hr PRN BID PRN IV After every 2L NSS & BP < 90mm Last administered on 07/20/19at 14:21; Start 07/05/19 at 16:00 Iohexol (Omnipaque 300 Mg/ml) 60 ml 1X ONCE IV Last administered on 07/05/19at 17:20; Start 07/05/19 at 17:00; Stop 07/05/19 at 17:01; Status DC Info (CONTRAST GIVEN -- Rx MONITORING) 1 each PRN DAILY PRN MC SEE COMMENTS; Start 07/05/19 at 17:00; Stop 07/07/19 at 16:59; Status DC Meropenem 1 gm/ Sodium Chloride 100 ml @ 200 mls/hr Q8HRS IV Last administered on 07/06/19at 05:45; Start 07/05/19 at 20:00; Stop 07/06/19 at 08:48; Status DC Furosemide (Lasix) 40 mg 1X ONCE IVP Last administered on 07/05/19at 22:12; Start 07/05/19 at 22:30; Stop 07/05/19 at 22:31; Status DC Calcium Chloride 1000 mg/Sodium Chloride 110 ml @ 220 mls/hr 1X ONCE IV Last administered on 07/05/19at 22:11; Start 07/05/19 at 22:30; Stop 07/05/19 at 22:59; Status DC Albuterol Sulfate (Ventolin Neb Soln) 2.5 mg 1X ONCE NEB Last administered on 07/06/19at 00:56; Start 07/05/19 at 22:30; Stop 07/05/19 at 22:31; Status DC Insulin Human Regular (HumuLIN R VIAL) 5 unit 1X ONCE IV Last administered on 07/05/19at 22:14; Start 07/05/19 at 22:30; Stop 07/05/19 at 22:31; Status DC Magnesium Sulfate 50 ml @ 25 mls/hr 1X ONCE IV Last administered on 07/06/19at 02:57; Start 07/06/19 at 03:00; Stop 07/06/19 at 04:59; Status DC Calcium Gluconate 1000 mg/Sodium Chloride 110 ml @ 220 mls/hr 1X ONCE IV Last administered on 07/06/19at 02:46; Start 07/06/19 at 03:00; Stop 07/06/19 at 03:29; Status DC Sodium Chloride 1,000 ml @ 200 mls/hr Q5H IV Last administered on 07/06/19at 02:46; Start 07/06/19 at 03:00; Stop 07/06/19 at 10:21; Status DC Calcium Gluconate 1000 mg/Sodium Chloride 110 ml @ 220 mls/hr 1X ONCE IV Last administered on 07/06/19at 03:21; Start 07/06/19 at 03:30; Stop 07/06/19 at 03:59; Status DC Sodium Bicarbonate 50 meq/Sodium Chloride 1,050 ml @ 75 mls/hr Q14H IV Last administered on 07/10/19at 21:10; Start 07/06/19 at 07:30; Stop 07/11/19 at 10:28; Status DC Calcium Gluconate 2000 mg/Sodium Chloride 120 ml @ 220 mls/hr 1X ONCE IV Last administered on 07/06/19at 09:05; Start 07/06/19 at 07:30; Stop 07/06/19 at 08:02; Status DC Lidocaine HCl (Xylocaine-Mpf 1% 2ml Vial) 2 ml STK-MED ONCE .ROUTE ; Start 06/18 12/07 at 08:47; Stop 07/06/19 at 08:47; Status DC Meropenem 500 mg/ Sodium Chloride 50 ml @ 100 mls/hr Q12HR IV Last administe red on 07/11/19at 21:01; Start 07/06/19 at 18:00; Stop 07/12/19 at 07:58; Status DC Lidocaine HCl (Buffered Lidocaine 1%) 3 ml STK-MED ONCE .ROUTE ; Start 07/06/19 at 09:46; Stop 07/06/19 at 09:46; Status DC Lidocaine HCl (Buffered Lidocaine 1%) 6 ml 1X ONCE INJ Last administered on 07/06/19at 10:26; Start 07/06/19 at 10:15; Stop 07/06/19 at 10:16; Status DC Info (Tpn Per Pharmacy) 1 each PRN DAILY PRN MC SEE COMMENTS Last administered on 08/05/19at 13:35; Start 07/06/19 at 12:00 Sodium Chloride 1,000 ml @ 1,000 mls/hr Q1H PRN IV hypotension; Start 07/06/19 at 12:07; Stop 07/06/19 at 18:06; Status DC Diphenhydramine HCl (Benadryl) 25 mg 1X PRN PRN IV ITCHING; Start 07/06/19 at 12:15; Stop 07/07/19 at 12:14; Status DC Diphenhydramine HCl (Benadryl) 25 mg 1X PRN PRN IV ITCHING; Start 07/06/19 at 12:15; Stop 07/07/19 at 12:14; Status DC Sodium Chloride 1,000 ml @ 400 mls/hr Q2H30M PRN IV PATENCY; Start 07/06/19 at 12:07; Stop 07/07/19 at 00:06; Status DC Info (PHARMACY MONITORING -- do not chart) 1 each PRN DAILY PRN MC SEE COMMENTS; Start 07/06/19 at 12:15; Stop 07/08/19 at 08:13; Status DC Sodium Chloride 90 meq/Calcium Gluconate 10 meq/ Multivitamins 10 ml/Chromium/ Copper/Manganese/ Seleni/Zn 1 ml/ Total Parenteral Nutrition/Amino Acids/Dextrose/ Fat Emulsion Intravenous 55.005 ml @ 2.292 mls/hr TPN CONT IV ; Start 07/06/19 at 22:00; Stop 07/06/19 at 12:33; Status DC Info (Tpn Per Pharmacy) 1 each PRN DAILY PRN MC SEE COMMENTS; Start 07/06/19 at 12:30; Status UNV Sodium Chloride 90 meq/Calcium Gluconate 10 meq/ Multivitamins 10 ml/Chromium/ Copper/Manganese/ Seleni/Zn 0.5 ml/ Total Parenteral Nutrition/Amino Acids/Dex trose/ Fat Emulsion Intravenous 1,512 ml @ 63 mls/hr TPN CONT IV Last administered on 07/06/19at 22:06; Start 07/06/19 at 22:00; Stop 07/07/19 at 21:59; Status DC Calcium Carbonate/ Glycine (Tums) 500 mg PRN AFTMEALHC PRN PO INDIGESTION; Start 07/06/19 at 17:45 Calcium Gluconate (Calcium Gluconate) 2,000 mg 1X ONCE IVP Last administered on 07/07/19at 02:19; Start 07/07/19 at 02:15; Stop 07/07/19 at 02:16; Status DC Calcium Chloride 3000 mg/Sodium Chloride 1,030 ml @ 50 mls/hr [id number] IV Last administered on 07/09/19at 02:17; Start 07/07/19 at 08:00; Stop 07/09/19 at 15:23; Status DC Lorazepam (Ativan Inj) 1 mg PRN Q4HRS PRN IVP ANXIETY / AGITATION, 2nd choic Last administered on 08/05/19at 03:51; Start 07/07/19 at 09:00; Stop 08/05/19 at 09:19; Status DC Sodium Chloride 1,000 ml @ 1,000 mls/hr Q1H PRN IV hypotension; Start 07/07/19 at 08:56; Stop 07/07/19 at 14:55; Status DC Albumin Human 200 ml @ 200 mls/hr 1X PRN PRN IV Hypotension; Start 07/07/19 at 09:00; Stop 07/07/19 at 14:59; Status DC Diphenhydramine HCl (Benadryl) 25 mg 1X PRN PRN IV ITCHING; Start 07/07/19 at 09:00; Stop 07/08/19 at 08:59; Status DC Diphenhydramine HCl (Benadryl) 25 mg 1X PRN PRN IV ITCHING; Start 07/07/19 at 09:00; Stop 07/08/19 at 08:59; Status DC Sodium Chloride 1,000 ml @ 400 mls/hr Q2H30M PRN IV PATENCY; Start 07/07/19 at 08:56; Stop 07/07/19 at 20:55; Status DC Info (PHARMACY MONITORING -- do not chart) 1 each PRN DAILY PRN MC SEE COMMENTS; Start 07/07/19 at 09:00; Status UNV Info (PHARMACY MONITORING -- do not chart) 1 each PRN DAILY PRN MC SEE COMMENTS; Start 07/07/19 at 09:00; Stop 07/08/19 at 08:13; Status DC Digoxin (Lanoxin) 500 mcg 1X ONCE IV Last administered on 07/07/19at 10:04; Start 07/07/19 at 10:00; Stop 07/07/19 at 10:01; Status DC Digoxin (Lanoxin) 125 mcg 1X ONCE IV Last administered on 07/07/19at 17:10; Start 07/07/19 at 18:00; Stop 07/07/19 at 18:01; Status DC Magnesium Sulfate 100 ml @ 25 mls/hr 1X ONCE IV Last administered on 07/07/19at 12:48; Start 07/07/19 at 13:00; Stop 07/07/19 at 16:59; Status DC Sodium Chloride 90 meq/Magnesium Sulfate 10 meq/ Calcium Gluconate 20 meq/ Multivitamins 10 ml/Chromium/ Copper/Manganese/ Seleni/Zn 0.5 ml/ Total Parenteral Nutrition/Amino Acids/Dextrose/ Fat Emulsion Intravenous 1,512 ml @ 63 mls/hr TPN CONT IV Last administered on 07/07/19at 22:25; Start 07/07/19 at 22:00; Stop 07/08/19 at 21:59; Status DC Sodium Chloride 1,000 ml @ 1,000 mls/hr Q1H PRN IV hypotension; Start 07/08/19 at 08:05; Stop 07/08/19 at 14:04; Status DC Albumin Human 200 ml @ 200 mls/hr 1X ONCE IV Last administered on 07/08/19at 08:57; Start 07/08/19 at 08:15; Stop 07/08/19 at 09:14; Status DC Diphenhydramine HCl (Benadryl) 25 mg 1X PRN PRN IV ITCHING; Start 07/08/19 at 08:15; Stop 07/09/19 at 08:14; Status DC Diphenhydramine HCl (Benadryl) 25 mg 1X PRN PRN IV ITCHING; Start 07/08/19 at 08:15; Stop 07/09/19 at 08:14; Status DC Sodium Chloride 1,000 ml @ 400 mls/hr Q2H30M PRN IV PATENCY; Start 07/08/19 at 08:05; Stop 07/08/19 at 20:04; Status DC Info (PHARMACY MONITORING -- do not chart) 1 each PRN DAILY PRN MC SEE COMMENTS; Start 07/08/19 at 08:15; Stop 07/12/19 at 07:57; Status DC Sodium Chloride 90 meq/Potassium Chloride 15 meq/ Potassium Phosphate 10 mmol/ Magnesium Sulfate 10 meq/Calcium Gluconate 20 meq/ Multivitamins 10 ml/Chromium/ Copper/Manganese/ Seleni/Zn 0.5 ml/ Total Parenteral Nutrition/Amino Acids/Dextrose/ Fat Emulsion Intravenous 1,512 ml @ 63 mls/hr TPN CONT IV Last administered on 07/08/19at 21:01; Start 07/08/19 at 22:00; Stop 07/09/19 at 21:59; Status DC Potassium Chloride/Water 100 ml @ 100 mls/hr 1X ONCE IV Last administered on 07/08/19at 14:09; Start 07/08/19 at 14:00; Stop 07/08/19 at 14:59; Status DC Benzocaine (Hurricaine One) 1 spray 1X ONCE MM Last administered on 07/08/19at 16:38; Start 07/08/19 at 14:30; Stop 07/08/19 at 14:31; Status DC Lidocaine HCl (Glydo (Lidocaine) Jelly) 1 ramu 1X ONCE MM Last administered on 07/08/19at 16:38; Start 07/08/19 at 14:30; Stop 07/08/19 at 14:31; Status DC Linezolid/Dextrose 300 ml @ 300 mls/hr Q12HR IV Last administered on 07/14/19at 21:04; Start 07/08/19 at 20:00; Stop 07/15/19 at 07:50; Status DC Acetaminophen (Tylenol) 650 mg PRN Q6HRS PRN PO MILD PAIN / TEMP; Start 07/09/19 at 03:30; Stop 07/09/19 at 03:36; Status DC Acetaminophen (Tylenol) 650 mg PRN Q6HRS PRN PEG MILD PAIN / TEMP Last administered on 08/04/19at 19:56; Start 07/09/19 at 03:36 Sodium Chloride 1,000 ml @ 1,000 mls/hr Q1H PRN IV hypotension; Start 07/09/19 at 07:50; Stop 07/09/19 at 13:49; Status DC Albumin Human 200 ml @ 200 mls/hr 1X PRN PRN IV Hypotension; Start 07/09/19 at 08:00; Stop 07/09/19 at 13:59; Status DC Sodium Chloride (Normal Saline Flush) 10 ml 1X PRN PRN IV AP catheter pack; Start 07/09/19 at 08:00; Stop 07/10/19 at 07:59; Status DC Sodium Chloride (Normal Saline Flush) 10 ml 1X PRN PRN IV RN ORTHO catheter pack; Start 07/09/19 at 08:00; Stop 07/10/19 at 07:59; Status DC Sodium Chloride 1,000 ml @ 400 mls/hr Q2H30M PRN IV PATENCY; Start 07/09/19 at 07:50; Stop 07/09/19 at 19:49; Status DC Info (PHARMACY MONITORING -- do not chart) 1 each PRN DAILY PRN MC SEE COMMENTS; Start 07/09/19 at 08:00; Status UNV Info (PHARMACY MONITORING -- do not chart) 1 each PRN DAILY PRN MC SEE COMMENTS; Start 07/09/19 at 08:00; Stop 07/11/19 at 08:25; Status DC Sodium Chloride 90 meq/Potassium Chloride 15 meq/ Potassium Phosphate 10 mmol/ Magnesium Sulfate 10 meq/Calcium Gluconate 20 meq/ Multivitamins 10 ml/Chromium/ Copper/Manganese/ Seleni/Zn 0.5 ml/ Total Parenteral Nutrition/Amino Acids/Dextrose/ Fat Emulsion Intravenous 1,512 ml @ 63 mls/hr TPN CONT IV Last administered on 07/09/19at 20:57; Start 07/09/19 at 22:00; Stop 07/10/19 at 21:59; Status DC Sodium Chloride 90 meq/Potassium Chloride 15 meq/ Potassium Phosphate 15 mmol/ Magnesium Sulfate 10 meq/Calcium Gluconate 20 meq/ Multivitamins 10 ml/Chromium/ Copper/Manganese/ Seleni/Zn 0.5 ml/ Total Parenteral Nutrition/Amino Acids/Dextrose/ Fat Emulsion Intravenous 1,512 ml @ 63 mls/hr TPN CONT IV ; Start 07/10/19 at 22:00; Stop 07/10/19 at 14:16; Status DC Sodium Chloride 90 meq/Potassium Chloride 15 meq/ Potassium Phosphate 15 mmol/ Magnesium Sulfate 10 meq/Calcium Gluconate 20 meq/ Multivitamins 10 ml/Chromium/ Copper/Manganese/ Seleni/Zn 0.5 ml/ Total Parenteral Nutrition/Amino Acids/Dextrose/ Fat Emulsion Intravenous 1,200 ml @ 50 mls/hr TPN CONT IV ; Start 07/10/19 at 22:00; Stop 07/10/19 at 14:17; Status DC Sodium Chloride 90 meq/Potassium Chloride 15 meq/ Potassium Phosphate 10 mmol/ Magnesium Sulfate 10 meq/Calcium Gluconate 20 meq/ Multivitamins 10 ml/Chromium/ Copper/Manganese/ Seleni/Zn 0.5 ml/ Total Parenteral Nutrition/Amino Acids/Dextrose/ Fat Emulsion Intravenous 1,200 ml @ 50 mls/hr TPN CONT IV Last administered on 07/10/19at 23:29; Start 07/10/19 at 22:00; Stop 07/11/19 at 21:59; Status DC Sodium Chloride 1,000 ml @ 1,000 mls/hr Q1H PRN IV hypotension; Start 07/11/19 at 07:28; Stop 07/11/19 at 13:27; Status DC Albumin Human 200 ml @ 200 mls/hr 1X ONCE IV Last administered on 07/11/19at 08:51; Start 07/11/19 at 07:30; Stop 07/11/19 at 08:29; Status DC Diphenhydramine HCl (Benadryl) 25 mg 1X PRN PRN IV ITCHING; Start 07/11/19 at 07:30; Stop 07/12/19 at 07:29; Status DC Diphenhydramine HCl (Benadryl) 25 mg 1X PRN PRN IV ITCHING; Start 07/11/19 at 07:30; Stop 07/12/19 at 07:29; Status DC Sodium Chloride 1,000 ml @ 400 mls/hr Q2H30M PRN IV PATENCY; Start 07/11/19 at 07:28; Stop 07/11/19 at 19:27; Status DC Info (PHARMACY MONITORING -- do not chart) 1 each PRN DAILY PRN MC SEE COMMENTS; Start 07/11/19 at 07:30; Stop 07/22/19 at 13:01; Status DC Metronidazole 100 ml @ 100 mls/hr Q6HRS IV Last administered on 07/27/19at 06:26; Start 07/11/19 at 08:30; Stop 07/27/19 at 09:58; Status DC Micafungin Sodium 100 mg/Dextrose 100 ml @ 100 mls/hr Q24H IV Last administered on 08/05/19at 09:50; Start 07/11/19 at 09:00 Propofol 0 ml @ As Directed STK-MED ONCE IV ; Start 07/11/19 at 07:53; Stop 07/11/19 at 07:53; Status DC Etomidate (Amidate) 20 mg STK-MED ONCE IV ; Start 07/11/19 at 07:53; Stop 07/11/19 at 07:54; Status DC Midazolam HCl (Versed) 5 mg STK-MED ONCE .ROUTE ; Start 07/11/19 at 07:57; Stop 07/11/19 at 07:57; Status DC Fentanyl Citrate 30 ml @ 0 mls/hr CONT PRN IV SEE PROTOCOL Last administered on 08/05/19at 06:12; Start 07/11/19 at 08:15; Stop 08/05/19 at 09:19; Status DC Artificial Tears (Artificial Tears) 1 drop PRN Q1HR PRN OU DRY EYE, 1st choice; Start 07/11/19 at 08:15 Midazolam HCl 50 mg/Sodium Chloride 50 ml @ 0 mls/hr CONT PRN IV SEE PROTOCOL Last administered on 07/14/19at 22:39; Start 07/11/19 at 08:15; Stop 07/16/19 at 15:59; Status DC Etomidate (Amidate) 8 mg 1X ONCE IV Last administered on 07/11/19at 08:33; Start 07/11/19 at 08:30; Stop 07/11/19 at 08:31; Status DC Succinylcholine Chloride (Anectine) 120 mg 1X ONCE IV Last administered on 07/11/19at 08:34; Start 07/11/19 at 08:30; Stop 07/11/19 at 08:31; Status DC Midazolam HCl (Versed) 5 mg 1X ONCE IV ; Start 07/11/19 at 08:30; Stop 07/11/19 at 08:31; Status DC Potassium Chloride 15 meq/ Bicarbonate Dialysis Soln w/ out KCl 5,007.5 ml @ 1,000 mls/ hr Q5H1M IV Last administered on 07/12/19at 11:11; Start 07/11/19 at 12:00; Stop 07/12/19 at 11:15; Status DC Potassium Chloride 15 meq/ Bicarbonate Dialysis Soln w/ out KCl 5,007.5 ml @ 1,000 mls/ hr Q5H1M IV Last administered on 07/12/19at 11:12; Start 07/11/19 at 12:00; Stop 07/12/19 at 11:17; Status DC Potassium Chloride 15 meq/ Bicarbonate Dialysis Soln w/ out KCl 5,007.5 ml @ 1,000 mls/ hr Q5H1M IV Last administered on 07/12/19at 11:11; Start 07/11/19 at 12:00; Stop 07/12/19 at 11:19; Status DC Sodium Chloride 90 meq/Potassium Chloride 15 meq/ Potassium Phosphate 10 mmol/ Magnesium Sulfate 10 meq/Calcium Gluconate 20 meq/ Multivitamins 10 ml/Chromium/ Copper/Manganese/ Seleni/Zn 0.5 ml/ Total Parenteral Nutrition/Amino Acids/Dextrose/ Fat Emulsion Intravenous 1,400 ml @ 58.333 mls/ hr TPN CONT IV Last administered on 07/11/19at 21:42; Start 07/11/19 at 22:00; Stop 07/12/19 at 21:59; Status DC Heparin Sodium (Porcine) (Heparin Sodium) 5,000 unit Q8HRS SQ Last administered on 07/16/19at 05:55; Start 07/11/19 at 15:00; Stop 07/16/19 at 13:28; Status DC Meropenem 500 mg/ Sodium Chloride 50 ml @ 100 mls/hr Q6HRS IV Last administered on 07/13/19at 06:00; Start 07/12/19 at 09:00; Stop 07/13/19 at 07:29; Status DC Potassium Phosphate 20 mmol/ Sodium Chloride 106.6667 ml @ 51.667 m... 1X ONCE IV Last administered on 07/12/19at 11:22; Start 07/12/19 at 10:15; Stop 07/12/19 at 12:18; Status DC Acetaminophen (Tylenol Supp) 650 mg PRN Q6HRS PRN WI MILD PAIN / TEMP Last administered on 08/05/19at 10:25; Start 07/12/19 at 10:30 Potassium Chloride/Water 100 ml @ 100 mls/hr Q1H IV Last administered on 07/12/19at 12:12; Start 07/12/19 at 11:00; Stop 07/12/19 at 12:59; Status DC Potassium Chloride 20 meq/ Bicarbonate Dialysis Soln w/ out KCl 5,010 ml @ 1,000 mls/hr Q5H1M IV Last administered on 07/13/19at 08:48; Start 07/12/19 at 12:00; Stop 07/13/19 at 13:03; Status DC Potassium Chloride 20 meq/ Bicarbonate Dialysis Soln w/ out KCl 5,010 ml @ 1,000 mls/hr Q5H1M IV Last administered on 07/17/19at 14:52; Start 07/12/19 at 11:30; Stop 07/17/19 at 19:59; Status DC Potassium Chloride 20 meq/ Bicarbonate Dialysis Soln w/ out KCl 5,010 ml @ 1,000 mls/hr Q5H1M IV Last administered on 07/17/19at 14:53; Start 07/12/19 at 11:30; Stop 07/17/19 at 19:59; Status DC Sodium Chloride 90 meq/Potassium Chloride 15 meq/ Potassium Phosphate 15 mmol/ Magnesium Sulfate 10 meq/Calcium Gluconate 15 meq/ Multivitamins 10 ml/Chromium/ Copper/Manganese/ Seleni/Zn 0.5 ml/ Total Parenteral Nutrition/Amino Acids/Dextrose/ Fat Emulsion Intravenous 1,400 ml @ 58.333 mls/ hr TPN CONT IV Last administered on 07/12/19at 22:17; Start 07/12/19 at 22:00; Stop 07/13/19 at 21:59; Status DC Cefepime HCl (Maxipime) 2 gm Q12HR IVP Last administered on 07/26/19at 20:56; Start 07/13/19 at 09:00; Stop 07/27/19 at 09:58; Status DC Daptomycin 500 mg/ Sodium Chloride 50 ml @ 100 mls/hr Q48H IV Last administered on 07/29/19at 09:57; Start 07/13/19 at 08:30; Stop 07/29/19 at 10:07; Status DC Lidocaine HCl (Buffered Lidocaine 1%) 3 ml 1X ONCE INJ Last administered on 07/13/19at 10:27; Start 07/13/19 at 10:30; Stop 07/13/19 at 10:31; Status DC Potassium Phosphate 20 mmol/ Sodium Chloride 106.6667 ml @ 51.667 m... 1X ONCE IV Last administered on 07/13/19at 12:51; Start 07/13/19 at 13:00; Stop 07/13/19 at 15:03; Status DC Sodium Chloride 90 meq/Potassium Chloride 15 meq/ Potassium Phosphate 18 mmol/ Magnesium Sulfate 8 meq/Calcium Gluconate 15 meq/ Multivitamins 10 ml/Chromium/ Copper/Manganese/ Seleni/Zn 0.5 ml/ Total Parenteral Nutrition/Amino Acids/Dextrose/ Fat Emulsion Intravenous 1,400 ml @ 58.333 mls/ hr TPN CONT IV Last administered on 07/13/19at 22:16; Start 07/13/19 at 22:00; Stop 07/14/19 at 21:59; Status DC Potassium Chloride 20 meq/ Bicarbonate Dialysis Soln w/ out KCl 5,010 ml @ 1,000 mls/hr Q5H1M IV Last administered on 07/17/19at 14:54; Start 07/13/19 at 16:00; Stop 07/17/19 at 19:59; Status DC Multi-Ingred Cream/Lotion/Oil/ Oint (Artificial Tears Eye Ointment) 1 ramu PRN Q1HR PRN OU DRY EYE, 2nd choice Last administered on 08/01/19at 08:19; Start 07/13/19 at 17:30 Sodium Chloride 90 meq/Potassium Chloride 15 meq/ Potassium Phosphate 18 mmol/ Magnesium Sulfate 8 meq/Calcium Gluconate 15 meq/ Multivitamins 10 ml/Chromium/ Copper/Manganese/ Seleni/Zn 0.5 ml/ Total Parenteral Nutrition/Amino Acids/Dextrose/ Fat Emulsion Intravenous 1,400 ml @ 58.333 mls/ hr TPN CONT IV Last administered on 07/14/19at 22:00; Start 07/14/19 at 22:00; Stop 07/15/19 at 21:59; Status DC Albumin Human 500 ml @ 125 mls/hr 1X ONCE IV ; Start 07/14/19 at 14:15; Stop 07/14/19 at 18:14; Status DC Sodium Chloride 90 meq/Potassium Chloride 15 meq/ Potassium Phosphate 18 mmol/ Magnesium Sulfate 8 meq/Calcium Gluconate 15 meq/ Multivitamins 10 ml/Chromium/ Copper/Manganese/ Seleni/Zn 0.5 ml/ Insulin Human Regular 10 unit/ Total Parenteral Nutrition/Amino Acids/Dextrose/ Fat Emulsion Intravenous 1,400 ml @ 58.333 mls/ hr TPN CONT IV Last administered on 07/15/19at 21:43; Start 07/15/19 at 22:00; Stop 07/16/19 at 21:59; Status DC Lidocaine HCl (Buffered Lidocaine 1%) 3 ml STK-MED ONCE .ROUTE ; Start 07/13/19 at 10:00; Stop 07/15/19 at 13:57; Status DC Midazolam HCl 100 mg/Sodium Chloride 100 ml @ 7 mls/hr CONT PRN IV SEE PROTOCOL Last administered on 07/27/19at 15:35; Start 07/16/19 at 16:00 Sodium Chloride 90 meq/Potassium Chloride 15 meq/ Potassium Phosphate 18 mmol/ Magnesium Sulfate 8 meq/Calcium Gluconate 15 meq/ Multivitamins 10 ml/Chromium/ Copper/Manganese/ Seleni/Zn 0.5 ml/ Insulin Human Regular 15 unit/ Total Parenteral Nutrition/Amino Acids/Dextrose/ Fat Emulsion Intravenous 1,400 ml @ 58.333 mls/ hr TPN CONT IV Last administered on 07/16/19at 20:34; Start 07/16/19 at 22:00; Stop 07/17/19 at 21:59; Status DC Info (Icu Electrolyte Protocol) 1 ea CONT PRN PRN MC PER PROTOCOL; Start 07/17/19 at 13:15 Sodium Chloride 90 meq/Potassium Chloride 15 meq/ Potassium Phosphate 18 mmol/ Magnesium Sulfate 8 meq/Calcium Gluconate 15 meq/ Multivitamins 10 ml/Chromium/ Copper/Manganese/ Seleni/Zn 0.5 ml/ Insulin Human Regular 15 unit/ Total Parenteral Nutrition/Amino Acids/Dextrose/ Fat Emulsion Intravenous 1,400 ml @ 58.333 mls/ hr TPN CONT IV Last administered on 07/17/19at 22:05; Start 07/17/19 at 22:00; Stop 07/18/19 at 21:59; Status DC Potassium Chloride 15 meq/ Bicarbonate Dialysis Soln w/ out KCl 5,007.5 ml @ 1,000 mls/ hr Q5H1M IV Last administered on 07/20/19at 18:14; Start 07/17/19 at 20:00; Stop 07/21/19 at 13:08; Status DC Potassium Chloride 15 meq/ Bicarbonate Dialysis Soln w/ out KCl 5,007.5 ml @ 1,000 mls/ hr Q5H1M IV Last administered on 07/20/19at 18:14; Start 07/17/19 at 20:00; Stop 07/21/19 at 13:08; Status DC Potassium Chloride 15 meq/ Bicarbonate Dialysis Soln w/ out KCl 5,007.5 ml @ 1,000 mls/ hr Q5H1M IV Last administered on 07/20/19at 18:14; Start 07/17/19 at 20:00; Stop 07/21/19 at 13:08; Status DC Iohexol (Omnipaque 240 Mg/ml) 30 ml 1X ONCE PO Last administered on 07/18/19at 11:30; Start 07/18/19 at 11:30; Stop 07/18/19 at 11:33; Status DC Info (CONTRAST GIVEN -- Rx MONITORING) 1 each PRN DAILY PRN MC SEE COMMENTS; Start 07/18/19 at 11:45; Stop 07/20/19 at 11:44; Status DC Sodium Chloride 90 meq/Potassium Chloride 15 meq/ Potassium Phosphate 18 mmol/ Magnesium Sulfate 8 meq/Calcium Gluconate 15 meq/ Multivitamins 10 ml/Chromium/ Copper/Manganese/ Seleni/Zn 0.5 ml/ Insulin Human Regular 15 unit/ Total Parenteral Nutrition/Amino Acids/Dextrose/ Fat Emulsion Intravenous 1,400 ml @ 58.333 mls/ hr TPN CONT IV Last administered on 07/18/19at 21:47; Start 07/18/19 at 22:00; Stop 07/19/19 at 21:59; Status DC Sodium Chloride 90 meq/Potassium Chloride 15 meq/ Potassium Phosphate 18 mmol/ Magnesium Sulfate 8 meq/Calcium Gluconate 15 meq/ Multivitamins 10 ml/Chromium/ Copper/Manganese/ Seleni/Zn 0.5 ml/ Insulin Human Regular 20 unit/ Total Parenteral Nutrition/Amino Acids/Dextrose/ Fat Emulsion Intravenous 1,400 ml @ 58.333 mls/ hr TPN CONT IV Last administered on 07/19/19at 21:36; Start 07/19/19 at 22:00; Stop 07/20/19 at 21:59; Status DC Alteplase, Recombinant (Cathflo For Central Catheter Clearance) 1 mg 1X ONCE INT CAT Last administered on 07/19/19at 20:03; Start 07/19/19 at 19:30; Stop 07/19/19 at 19:46; Status DC Alteplase, Recombinant (Cathflo For Central Catheter Clearance) 1 mg 1X ONCE INT CAT Last administered on 07/19/19at 22:05; Start 07/19/19 at 22:00; Stop 07/19/19 at 22:01; Status DC Sodium Chloride 90 meq/Potassium Chloride 15 meq/ Potassium Phosphate 18 mmol/ Magnesium Sulfate 8 meq/Calcium Gluconate 15 meq/ Multivitamins 10 ml/Chromium/ Copper/Manganese/ Seleni/Zn 0.5 ml/ Insulin Human Regular 20 unit/ Total Parenteral Nutrition/Amino Acids/Dextrose/ Fat Emulsion Intravenous 1,400 ml @ 58.333 mls/ hr TPN CONT IV Last administered on 07/20/19at 21:30; Start 07/20/19 at 22:00; Stop 07/21/19 at 21:59; Status DC Dexmedetomidine HCl 400 mcg/ Sodium Chloride 100 ml @ 0 mls/hr CONT PRN IV ANXIETY / AGITATION Last administered on 08/06/19at 03:43; Start 07/21/19 at 08:15 Sodium Chloride 500 ml @ 500 mls/hr 1X PRN PRN IV ELEVATED BP, SEE COMMENTS; Start 07/21/19 at 08:15 Atropine Sulfate (ATROPINE 0.5mg SYRINGE) 0.5 mg PRN Q5MIN PRN IV SEE COMMENTS; Start 07/21/19 at 08:15 Furosemide (Lasix) 20 mg 1X ONCE IVP Last administered on 07/21/19at 08:19; Start 07/21/19 at 08:15; Stop 07/21/19 at 08:16; Status DC Lidocaine HCl (Buffered Lidocaine 1%) 3 ml [place]-MED ONCE .ROUTE ; Start 07/21/19 at 08:39; Stop 07/21/19 at 08:39; Status DC Lidocaine HCl (Buffered Lidocaine 1%) 6 ml 1X ONCE INJ Last administered on 07/21/19at 09:05; Start 07/21/19 at 09:00; Stop 07/21/19 at 09:06; Status DC Sodium Chloride 90 meq/Potassium Chloride 15 meq/ Potassium Phosphate 18 mmol/ Magnesium Sulfate 8 meq/Calcium Gluconate 15 meq/ Multivitamins 10 ml/Chromium/ Copper/Manganese/ Seleni/Zn 0.5 ml/ Insulin Human Regular 20 unit/ Total Parenteral Nutrition/Amino Acids/Dextrose/ Fat Emulsion Intravenous 1,400 ml @ 58.333 mls/ hr TPN CONT IV Last administered on 07/21/19at 22:45; Start 07/21/19 at 22:00; Stop 07/22/19 at 21:59; Status DC Sodium Chloride 1,000 ml @ 1,000 mls/hr Q1H PRN IV hypotension; Start 07/22/19 at 07:30; Stop 07/22/19 at 13:29; Status DC Albumin Human 200 ml @ 200 mls/hr 1X PRN PRN IV Hypotension Last administered on 07/22/19at 09:36; Start 07/22/19 at 07:30; Stop 07/22/19 at 13:29; Status DC Sodium Chloride (Normal Saline Flush) 10 ml 1X PRN PRN IV AP catheter pack; Start 07/22/19 at 07:30; Stop 07/22/19 at 21:29; Status DC Sodium Chloride (Normal Saline Flush) 10 ml 1X PRN PRN IV RN ORTHO catheter pack; Start 07/22/19 at 07:30; Stop 07/23/19 at 07:29; Status DC Sodium Chloride 1,000 ml @ 400 mls/hr Q2H30M PRN IV PATENCY; Start 07/22/19 at 07:30; Stop 07/22/19 at 19:29; Status DC Info (PHARMACY MONITORING -- do not chart) 1 each PRN DAILY PRN MC SEE COMMENTS; Start 07/22/19 at 07:30; Stop 07/22/19 at 13:02; Status DC Info (PHARMACY MONITORING -- do not chart) 1 each PRN DAILY PRN MC SEE COMMENTS; Start 07/22/19 at 07:30; Stop 07/24/19 at 12:45; Status DC Sodium Chloride 90 meq/Potassium Chloride 15 meq/ Potassium Phosphate 10 mmol/ Magnesium Sulfate 8 meq/Calcium Gluconate 15 meq/ Multivitamins 10 ml/Chromium/ Copper/Manganese/ Seleni/Zn 0.5 ml/ Insulin Human Regular 25 unit/ Total Parenteral Nutrition/Amino Acids/Dextrose/ Fat Emulsion Intravenous 1,400 ml @ 58.333 mls/ hr TPN CONT IV Last administered on 07/22/19at 22:19; Start 07/22/19 at 22:00; Stop 07/23/19 at 21:59; Status DC Heparin Sodium (Porcine) (Heparin Sodium) 5,000 unit Q12HR SQ Last administered on 08/05/19at 22:09; Start 07/22/19 at 21:00 Ondansetron HCl (Zofran) 4 mg PRN Q6HRS PRN IV NAUSEA/VOMITING; Start 07/25/19 at 07:00; Stop 07/26/19 at 06:59; Status DC Fentanyl Citrate (Fentanyl 2ml Vial) 25 mcg PRN Q5MIN PRN IV MILD PAIN 1-3; Start 07/25/19 at 07:00; Stop 07/26/19 at 06:59; Status DC Fentanyl Citrate (Fentanyl 2ml Vial) 50 mcg PRN Q5MIN PRN IV MODERATE TO SEVERE PAIN; Start 07/25/19 at 07:00; Stop 07/26/19 at 06:59; Status DC Ringer's Solution 1,000 ml @ 30 mls/hr Q24H IV ; Start 07/25/19 at 07:00; Stop 07/25/19 at 18:59; Status DC Lidocaine HCl (Xylocaine-Mpf 1% 2ml Vial) 2 ml PRN 1X PRN ID PRIOR TO IV START; Start 07/25/19 at 07:00; Stop 07/26/19 at 06:59; Status DC Prochlorperazine Edisylate (Compazine) 5 mg PACU PRN PRN IV NAUSEA, MRX1; Start 07/25/19 at 07:00; Stop 07/26/19 at 06:59; Status DC Sodium Chloride 1,000 ml @ 1,000 mls/hr Q1H PRN IV hypotension; Start 07/23/19 at 09:10; Stop 07/23/19 at 15:09; Status DC Albumin Human 200 ml @ 200 mls/hr 1X PRN PRN IV Hypotension Last administered on 07/23/19at 10:10; Start 07/23/19 at 09:15; Stop 07/23/19 at 15:14; Status DC Sodium Chloride 1,000 ml @ 400 mls/hr Q2H30M PRN IV PATENCY; Start 07/23/19 at 09:10; Stop 07/23/19 at 21:09; Status DC Info (PHARMACY MONITORING -- do not chart) 1 each PRN DAILY PRN MC SEE COMMENTS; Start 07/23/19 at 09:15; Stop 07/24/19 at 12:45; Status DC Info (PHARMACY MONITORING -- do not chart) 1 each PRN DAILY PRN MC SEE COMMENTS; Start 07/23/19 at 09:15; Stop 07/24/19 at 12:45; Status DC Sodium Chloride 90 meq/Potassium Chloride 15 meq/ Potassium Phosphate 10 mmol/ Magnesium Sulfate 8 meq/Calcium Gluconate 15 meq/ Multivitamins 10 ml/Chromium/ Copper/Manganese/ Seleni/Zn 0.5 ml/ Insulin Human Regular 25 unit/ Total Parenteral Nutrition/Amino Acids/Dextrose/ Fat Emulsion Intravenous 1,400 ml @ 58.333 mls/ hr TPN CONT IV Last administered on 07/23/19at 22:10; Start 07/23/19 at 22:00; Stop 07/24/19 at 21:59; Status DC Magnesium Sulfate 50 ml @ 25 mls/hr PRN DAILY PRN IV for Mag < 1.7 on am labs; Start 07/24/19 at 09:15 Sodium Chloride 90 meq/Potassium Chloride 15 meq/ Potassium Phosphate 10 mmol/ Magnesium Sulfate 8 meq/Calcium Gluconate 15 meq/ Multivitamins 10 ml/Chromium/ Copper/Manganese/ Seleni/Zn 0.5 ml/ Insulin Human Regular 25 unit/ Total Parenteral Nutrition/Amino Acids/Dextrose/ Fat Emulsion Intravenous 1,400 ml @ 58.333 mls/ hr TPN CONT IV Last administered on 07/24/19at 21:20; Start 07/24/19 at 22:00; Stop 07/25/19 at 21:59; Status DC Sodium Chloride 1,000 ml @ 1,000 mls/hr Q1H PRN IV hypotension; Start 07/24/19 at 12:23; Stop 07/24/19 at 18:22; Status DC Albumin Human 200 ml @ 200 mls/hr 1X ONCE IV Last administered on 07/24/19at 13:34; Start 07/24/19 at 12:30; Stop 07/24/19 at 13:29; Status DC Diphenhydramine HCl (Benadryl) 25 mg 1X PRN PRN IV ITCHING; Start 07/24/19 at 12:30; Stop 07/25/19 at 12:29; Status DC Diphenhydramine HCl (Benadryl) 25 mg 1X PRN PRN IV ITCHING; Start 07/24/19 at 12:30; Stop 07/25/19 at 12:29; Status DC Info (PHARMACY MONITORING -- do not chart) 1 each PRN DAILY PRN MC SEE C OMMENTS; Start 07/24/19 at 12:30; Status Cancel Bupivacaine HCl/ Epinephrine Bitart (Sensorcain-Epi 0.5%-1:[id number] Mpf) 30 ml STK -MED ONCE .ROUTE Last administered on 07/25/19at 11:44; Start 07/25/19 at 11:00; Stop 07/25/19 at 11:01; Status DC Cellulose (Surgicel Fibrillar 1x2) 1 each STK-MED ONCE .ROUTE ; Start 07/25/19 at 11:00; Stop 07/25/19 at 11:01; Status DC Sodium Chloride 90 meq/Potassium Chloride 15 meq/ Potassium Phosphate 10 mmol/ Magnesium Sulfate 12 meq/Calcium Gluconate 15 meq/ Multivitamins 10 ml/Chromium/ Copper/Manganese/ Seleni/Zn 0.5 ml/ Insulin Human Regular 25 unit/ Total Parenteral Nutrition/Amino Acids/Dextrose/ Fat Emulsion Intravenous 1,400 ml @ 58.333 mls/ hr TPN CONT IV Last administered on 07/25/19at 22:24; Start 07/25/19 at 22:00; Stop 07/26/19 at 21:59; Status DC Propofol 20 ml @ As Directed STK-MED ONCE IV ; Start 07/25/19 at 11:07; Stop 07/25/19 at 11:07; Status DC Cellulose (Surgicel Hemostat 4x8) 1 each STK-MED ONCE .ROUTE Last administered on 07/25/19at 11:44; Start 07/25/19 at 11:55; Stop 07/25/19 at 11:56; Status DC Sevoflurane (Ultane) 60 ml STK-MED ONCE IH ; Start 07/25/19 at 12:46; Stop 07/25/19 at 12:46; Status DC Sodium Chloride 1,000 ml @ 1,000 mls/hr Q1H PRN IV hypotension; Start 07/25/19 at 13:51; Stop 07/25/19 at 19:50; Status DC Albumin Human 200 ml @ 200 mls/hr 1X PRN PRN IV Hypotension Last administered on 07/25/19at 14:51; Start 07/25/19 at 14:00; Stop 07/25/19 at 19:59; Status DC Diphenhydramine HCl (Benadryl) 25 mg 1X PRN PRN IV ITCHING; Start 07/25/19 at 14:00; Stop 07/26/19 at 13:59; Status DC Diphenhydramine HCl (Benadryl) 25 mg 1X PRN PRN IV ITCHING; Start 07/25/19 at 14:00; Stop 07/26/19 at 13:59; Status DC Sodium Chloride 1,000 ml @ 400 mls/hr Q2H30M PRN IV PATENCY; Start 07/25/19 at 13:51; Stop 07/26/19 at 01:50; Status DC Info (PHARMACY MONITORING -- do not chart) 1 each PRN DAILY PRN MC SEE COMMENTS; Start 07/25/19 at 14:00; Stop 07/28/19 at 08:16; Status DC Heparin Sodium (Porcine) (Hep Lock Adult) 500 unit STK-MED ONCE IVP ; Start 07/26/19 at 09:29; Stop 07/26/19 at 09:30; Status DC Sodium Chloride 1,000 ml @ 1,000 mls/hr Q1H PRN IV hypotension; Start 07/26/19 at 10:43; Stop 07/26/19 at 16:42; Status DC Sodium Chloride 1,000 ml @ 400 mls/hr Q2H30M PRN IV PATENCY; Start 07/26/19 at 10:43; Stop 07/26/19 at 22:42; Status DC Info (PHARMACY MONITORING -- do not chart) 1 each PRN DAILY PRN MC SEE COMMENTS; Start 07/26/19 at 10:45; Status UNV Info (PHARMACY MONITORING -- do not chart) 1 each PRN DAILY PRN MC SEE COMMENTS; Start 07/26/19 at 10:45; Status UNV Sodium Chloride 90 meq/Potassium Chloride 15 meq/ Magnesium Sulfate 12 meq/Calcium Gluconate 15 meq/ Multivitamins 10 ml/Chromium/ Copper/Manganese/ Seleni/Zn 0.5 ml/ Insulin Human Regular 25 unit/ Total Parenteral Nutrition/Amino Acids/Dextrose/ Fat Emulsion Intravenous 1,400 ml @ 58.333 mls/ hr TPN CONT IV Last administered on 07/26/19at 22:13; Start 07/26/19 at 22:00; Stop 07/27/19 at 21:59; Status DC Sodium Chloride 1,000 ml @ 1,000 mls/hr Q1H PRN IV hypotension; Start 07/27/19 at 07:50; Stop 07/27/19 at 13:49; Status DC Albumin Human 200 ml @ 200 mls/hr 1X ONCE IV ; Start 07/27/19 at 08:00; Stop 07/27/19 at 08:53; Status DC Diphenhydramine HCl (Benadryl) 25 mg 1X PRN PRN IV ITCHING; Start 07/27/19 at 08:00; Stop 07/28/19 at 07:59; Status DC Diphenhydramine HCl (Benadryl) 25 mg 1X PRN PRN IV ITCHING; Start 07/27/19 at 08:00; Stop 07/28/19 at 07:59; Status DC Info (PHARMACY MONITORING -- do not chart) 1 each PRN DAILY PRN MC SEE COMMENTS; Start 07/27/19 at 08:00; Stop 07/28/19 at 08:16; Status DC Albumin Human 50 ml @ 50 mls/hr 1X ONCE IV ; Start 07/27/19 at 08:53; Stop 07/27/19 at 08:56; Status DC Albumin Human 200 ml @ 50 mls/hr PRN 1X PRN IV HYPOTENSION Last administered on 08/02/19at 11:54; Start 07/27/19 at 09:00 Meropenem 500 mg/ Sodium Chloride 50 ml @ 100 mls/hr Q12H IV Last administered on 08/05/19at 22:09; Start 07/27/19 at 10:00 Sodium Chloride 90 meq/Magnesium Sulfate 12 meq/ Calcium Gluconate 15 meq/ Multivitamins 10 ml/Chromium/ Copper/Manganese/ Seleni/Zn 0.5 ml/ Insulin Human Regular 25 unit/ Total Parenteral Nutrition/Amino Acids/Dextrose/ Fat Emulsion Intravenous 1,400 ml @ 58.333 mls/ hr TPN CONT IV Last administered on 07/27/19at 21:41; Start 07/27/19 at 22:00; Stop 07/28/19 at 21:59; Status DC Sodium Chloride 1,000 ml @ 1,000 mls/hr Q1H PRN IV hypotension; Start 07/28/19 at 07:58; Stop 07/28/19 at 13:57; Status DC Albumin Human 200 ml @ 200 mls/hr 1X PRN PRN IV Hypotension Last administered on 07/28/19at 09:30; Start 07/28/19 at 08:00; Stop 07/28/19 at 13:59; Status DC Sodium Chloride 1,000 ml @ 400 mls/hr Q2H30M PRN IV PATENCY; Start 07/28/19 at 07:58; Stop 07/28/19 at 19:57; Status DC Info (PHARMACY MONITORING -- do not chart) 1 each PRN DAILY PRN MC SEE COMMENTS; Start 07/28/19 at 08:00; Status Cancel Info (PHARMACY MONITORING -- do not chart) 1 each PRN DAILY PRN MC SEE COMMENTS; Start 07/28/19 at 08:15; Status UNV Sodium Chloride 90 meq/Potassium Phosphate 5 mmol/ Magnesium Sulfate 12 meq/Calcium Gluconate 15 meq/ Multivitamins 10 ml/Chromium/ Copper/Manganese/ Seleni/Zn 0.5 ml/ Insulin Human Regular 30 unit/ Total Parenteral Nutrition/Amino Acids/Dextrose/ Fat Emulsion Intravenous 1,400 ml @ 58.333 mls/ hr TPN CONT IV Last administered on 07/28/19at 22:08; Start 07/28/19 at 22:00; Stop 07/29/19 at 21:59; Status DC Linezolid/Dextrose 300 ml @ 300 mls/hr Q12HR IV Last administered on 08/05/19at 20:46; Start 07/29/19 at 11:00 Sodium Chloride 90 meq/Potassium Phosphate 15 mmol/ Magnesium Sulfate 12 meq/Calcium Gluconate 15 meq/ Multivitamins 10 ml/Chromium/ Copper/Manganese/ Seleni/Zn 0.5 ml/ Insulin Human Regular 30 unit/ Total Parenteral Nutrition/Amino Acids/Dextrose/ Fat Emulsion Intravenous 1,400 ml @ 58.333 mls/ hr TPN CONT IV Last administered on 07/29/19at 21:49; Start 07/29/19 at 22:00; Stop 07/30/19 at 21:59; Status DC Sodium Chloride 90 meq/Potassium Phosphate 15 mmol/ Magnesium Sulfate 12 meq/Calcium Gluconate 15 meq/ Multivitamins 10 ml/Chromium/ Copper/Manganese/ Seleni/Zn 0.5 ml/ Insulin Human Regular 40 unit/ Total Parenteral Nutrition/Amino Acids/Dextrose/ Fat Emulsion Intravenous 1,400 ml @ 58.333 mls/ hr TPN CONT IV Last administered on 07/30/19at 21:21; Start 07/30/19 at 22:00; Stop 07/31/19 at 21:59; Status DC Sodium Chloride 1,000 ml @ 1,000 mls/hr Q1H PRN IV hypotension; Start 07/30/19 at 13:26; Stop 07/30/19 at 19:25; Status DC Albumin Human 200 ml @ 200 mls/hr 1X PRN PRN IV Hypotension Last administered on 07/30/19at 15:00; Start 07/30/19 at 13:30; Stop 07/30/19 at 19:29; Status DC Sodium Chloride (Normal Saline Flush) 10 ml 1X PRN PRN IV AP catheter pack; Start 07/30/19 at 13:30; Stop 07/31/19 at 13:29; Status DC Sodium Chloride (Normal Saline Flush) 10 ml 1X PRN PRN IV RN ORTHO catheter pack; Start 07/30/19 at 13:30; Stop 07/31/19 at 13:29; Status DC Sodium Chloride 1,000 ml @ 400 mls/hr Q2H30M PRN IV PATENCY; Start 07/30/19 at 13:26; Stop 07/31/19 at 01:25; Status DC Info (PHARMACY MONITORING -- do not chart) 1 each PRN DAILY PRN MC SEE CO MMENTS; Start 07/30/19 at 13:30; Stop 07/30/19 at 13:33; Status DC Info (PHARMACY MONITORING -- do not chart) 1 each PRN DAILY PRN MC SEE COMMENTS; Start 07/30/19 at 13:30; Stop 07/30/19 at 13:34; Status DC Sodium Chloride 90 meq/Potassium Phosphate 19 mmol/ Magnesium Sulfate 12 meq/Calcium Gluconate 15 meq/ Multivitamins 10 ml/Chromium/ Copper/Manganese/ Seleni/Zn 0.5 ml/ Insulin Human Regular 40 unit/ Total Parenteral Nutrition/Amino Acids/Dextrose/ Fat Emulsion Intravenous 1,400 ml @ 58.333 mls/ hr TPN CONT IV Last administered on 07/31/19at 21:54; Start 07/31/19 at 22:00; Stop 08/01/19 at 21:59; Status DC Sodium Chloride 1,000 ml @ 1,000 mls/hr Q1H PRN IV hypotension; Start 08/01/19 at 09:35; Stop 08/01/19 at 15:34; Status DC Albumin Human 200 ml @ 200 mls/hr 1X PRN PRN IV Hypotension; Start 08/01/19 at 09:45; Stop 08/01/19 at 15:44; Status DC Diphenhydramine HCl (Benadryl) 25 mg 1X PRN PRN IV ITCHING; Start 08/01/19 at 09:45; Stop 08/02/19 at 09:44; Status DC Diphenhydramine HCl (Benadryl) 25 mg 1X PRN PRN IV ITCHING; Start 08/01/19 at 09:45; Stop 08/02/19 at 09:44; Status DC Sodium Chloride 1,000 ml @ 400 mls/hr Q2H30M PRN IV PATENCY; Start 08/01/19 at 09:35; Stop 08/01/19 at 21:34; Status DC Info (PHARMACY MONITORING -- do not chart) 1 each PRN DAILY PRN MC SEE COMMENTS; Start 08/01/19 at 09:45; Status Cancel Sodium Chloride 100 meq/Potassium Phosphate 19 mmol/ Magnesium Sulfate 12 meq/Calcium Gluconate 15 meq/ Multivitamins 10 ml/Chromium/ Copper/Manganese/ Seleni/Zn 0.5 ml/ Insulin Human Regular 40 unit/ Potassium Chloride 20 meq/ Total Parenteral Nutrition/Amino Acids/Dextrose/ Fat Emulsion Intravenous 1,400 ml @ 58.333 mls/ hr TPN CONT IV Last administered on 08/01/19at 22:02; Start 08/01/19 at 22:00; Stop 08/02/19 at 21:59; Status DC Furosemide (Lasix) 40 mg 1X ONCE IVP Last administered on 08/01/19at 14:39; Start 08/01/19 at 14:30; Stop 08/01/19 at 14:31; Status DC Metronidazole 100 ml @ 100 mls/hr Q8HRS IV Last administered on 08/06/19at 06:21; Start 08/02/19 at 10:00 Sodium Chloride 1,000 ml @ 1,000 mls/hr Q1H PRN IV hypotension; Start 08/02/19 at 08:00; Stop 08/02/19 at 13:59; Status DC Albumin Human 200 ml @ 200 mls/hr 1X PRN PRN IV Hypotension; Start 08/02/19 at 08:00; Stop 08/02/19 at 13:59; Status DC Sodium Chloride 1,000 ml @ 400 mls/hr Q2H30M PRN IV PATENCY; Start 08/02/19 at 08:00; Stop 08/02/19 at 19:59; Status DC Info (PHARMACY MONITORING -- do not chart) 1 each PRN DAILY PRN MC SEE COMMENTS; Start 08/02/19 at 11:30; Status UNV Info (PHARMACY MONITORING -- do not chart) 1 each PRN DAILY PRN MC SEE COMMENTS; Start 08/02/19 at 11:30; Stop 08/04/19 at 12:13; Status DC Sodium Chloride 100 meq/Potassium Phosphate 19 mmol/ Magnesium Sulfate 12 meq/Calcium Gluconate 15 meq/ Multivitamins 10 ml/Chromium/ Copper/Manganese/ Seleni/Zn 0.5 ml/ Insulin Human Regular 40 unit/ Potassium Chloride 20 meq/ Total Parenteral Nutrition/Amino Acids/Dextrose/ Fat Emulsion Intravenous 1,400 ml @ 58.333 mls/ hr TPN CONT IV Last administered on 08/02/19at 21:52; Start 08/02/19 at 22:00; Stop 08/03/19 at 21:59; Status DC Sodium Chloride (Normal Saline Flush) 10 ml QSHIFT PRN IV AFTER MEDS AND BLOOD DRAWS; Start 08/02/19 at 15:00 Sodium Chloride (Normal Saline Flush) 10 ml PRN Q5MIN PRN IV AFTER MEDS AND BLOOD DRAWS; Start 08/02/19 at 15:00 Sodium Chloride (Normal Saline Flush) 20 ml PRN Q5MIN PRN IV AFTER MEDS AND BLOOD DRAWS; Start 08/02/19 at 15:00 Sodium Chloride 100 meq/Potassium Phosphate 19 mmol/ Magnesium Sulfate 12 meq/Calcium Gluconate 15 meq/ Multivitamins 10 ml/Chromium/ Copper/Manganese/ Seleni/Zn 0.5 ml/ Insulin Human Regular 40 unit/ Potassium Chloride 20 meq/ Total Parenteral Nutrition/Amino Acids/Dextrose/ Fat Emulsion Intravenous 1,400 ml @ 58.333 mls/ hr TPN CONT IV Last administered on 08/03/19at 21:20; Start 08/03/19 at 22:00; Stop 08/04/19 at 21:59; Status DC Lidocaine HCl (Buffered Lidocaine 1%) 3 ml STK-MED ONCE .ROUTE ; Start 08/03/19 at 13:16; Stop 08/03/19 at 13:16; Status DC Lidocaine HCl (Buffered Lidocaine 1%) 6 ml 1X ONCE INJ Last administered on 08/03/19at 13:45; Start 08/03/19 at 13:30; Stop 08/03/19 at 13:31; Status DC Albumin Human 100 ml @ 100 mls/hr 1X ONCE IV Last administered on 08/03/19at 15:41; Start 08/03/19 at 15:00; Stop 08/03/19 at 15:59; Status DC Albumin Human 50 ml @ 50 mls/hr 1X ONCE IV Last administered on 08/03/19at 15:00; Start 08/03/19 at 15:00; Stop 08/03/19 at 15:59; Status DC Info (PHARMACY MONITORING -- do not chart) 1 each PRN DAILY PRN MC SEE COMMENTS; Start 08/04/19 at 11:30 Info (PHARMACY MONITORING -- do not chart) 1 each PRN DAILY PRN MC SEE COMMENTS; Start 08/04/19 at 11:30; Status UNV Sodium Chloride 100 meq/Potassium Phosphate 10 mmol/ Magnesium Sulfate 12 meq/Calcium Gluconate 15 meq/ Multivitamins 10 ml/Chromium/ Copper/Manganese/ Seleni/Zn 0.5 ml/ Insulin Human Regular 35 unit/ Potassium Chloride 20 meq/ Total Parenteral Nutrition/Amino Acids/Dextrose/ Fat Emulsion Intravenous 1,400 ml @ 58.333 mls/ hr TPN CONT IV Last administered on 08/04/19at 22:10; Start 08/04/19 at 22:00; Stop 08/05/19 at 21:59; Status DC Sodium Chloride 100 meq/Potassium Phosphate 5 mmol/ Magnesium Sulfate 12 meq/Calcium Gluconate 15 meq/ Multivitamins 10 ml/Chromium/ Copper/Manganese/ Seleni/Zn 0.5 ml/ Insulin Human Regular 35 unit/ Potassium Chloride 20 meq/ Total Parenteral Nutrition/Amino Acids/Dextrose/ Fat Emulsion Intravenous 1,400 ml @ 58.333 mls/ hr TPN CONT IV Last administered on 08/05/19at 22:59; Start 08/05/19 at 22:00; Stop 08/06/19 at 21:59 Active Scripts Active Reported Bisoprolol Fumarate 5 Mg Tablet 10 Mg PO DAILY Vitals/I & O Vital Sign - Last 24 Hours 08/05/19 08/05/19 08/05/19 08/05/19 08:00 08:00 09:00 10:00 Temp 100.6 100.6 Pulse 92 94 106 Resp 18 18 29 B/P (MAP) 130/65 (86) 130/79 (96) 188/108 (134) Pulse Ox 99 100 100 O2 Delivery Mechanical Ventilator Ventilator Ventilator C-pap trial 08/05/19 08/05/19 08/05/19 08/05/19 10:51 11:00 12:00 12:00 Temp 99.6 99.6 Pulse 120 108 Resp 30 29 B/P (MAP) 202/111 (141) 149/82 (104) Pulse Ox 100 100 99 O2 Delivery Ventilator C-pap trial C-pap trial Mechanical Ventilator 08/05/19 08/05/19 08/05/19 08/05/19 12:55 13:00 14:00 15:00 Pulse 144 120 108 Resp 32 32 27 B/P (MAP) 133/90 (104) 158/101 (120) 185/102 (129) Pulse Ox 95 100 99 99 O2 Delivery Ventilator C-pap trial C-pap trial C-pap trial 08/05/19 08/05/19 08/05/19 08/05/19 15:41 16:00 16:00 17:00 Temp 99.2 99.2 Pulse 126 108 Resp 39 27 B/P (MAP) 200/109 (139) 159/84 (109) Pulse Ox 100 100 99 O2 Delivery Ventilator C-pap trial Mechanical Ventilator C-pap trial 08/05/19 08/05/19 08/05/19 08/05/19 18:00 18:40 19:00 20:00 Pulse 110 92 Resp 32 18 B/P (MAP) 175/106 (129) 162/92 (115) Pulse Ox 99 100 100 O2 Delivery C-pap trial Ventilator Ventilator Mechanical Ventilator 08/05/19 08/05/19 08/05/19 08/05/19 20:00 20:10 20:50 21:00 Temp 99.8 99.8 Pulse 117 128 Resp 24 30 B/P (MAP) 194/108 (136) 181/91 (121) Pulse Ox 100 100 100 100 O2 Delivery Ventilator Ventilator Ventilator 08/05/19 08/05/19 08/06/19 08/06/19 22:00 23:00 00:00 00:00 Temp 98.9 98.9 Pulse 111 91 82 Resp 20 19 20 B/P (MAP) 173/92 (119) 139/65 (89) 130/63 (85) Pulse Ox 100 100 100 O2 Delivery Ventilator Ventilator Ventilator Mechanical Ventilator 08/06/19 08/06/19 08/06/19 08/06/19 00:30 01:00 02:00 03:00 Pulse 86 114 105 Resp 18 18 28 B/P (MAP) 133/69 (90) 144/81 (102) 153/91 (111) Pulse Ox 100 100 100 100 O2 Delivery Ventilator Ventilator Ventilator Ventilator 08/06/19 08/06/19 08/06/19 08/06/19 04:00 04:00 04:15 05:00 Temp 99.5 99.5 Pulse 102 88 Resp 28 22 B/P (MAP) 160/81 (107) 170/96 (120) Pulse Ox 100 100 100 O2 Delivery Ventilator Mechanical Ventilator Ventilator Ventilator 08/06/19 06:00 Pulse 90 Resp 18 B/P (MAP) 136/71 (92) Pulse Ox 100 O2 Delivery Ventilator Intake and Output 08/05/19 08/05/19 08/06/19 15:00 23:00 07:00 Intake Total 450 ml 2344.2 ml 1313.96 ml Output Total 470 ml 1250 ml 825 ml Balance -20 ml 1094.2 ml 488.96 ml Hemodynamically unstable?: No Is patient in severe pain?: No Is NPO status required?: Yes DAVIN LANDEROS MD Aug 06, 2019 07:53
[2019-08-06] MEDS ORDERED: IV NORMAL SALINE 1000ML BAG 1,000 ML IV PRN ×2 (08:27)
[2019-08-06] MEDS ORDERED: ALBUMIN HUMAN 25% 200 ML IV PRN (08:30)
[2019-08-06] MEDS ORDERED: DIALYSIS PATIENT. MC PRN ×2 (08:30)
--- NOTE | 2019-08-06 11:15 | PDOC ---
SURGICAL PROGRESS NOTE Subjective seen during dialysis awake Vital Signs Vital Signs Date Time Temp Pulse Resp B/P (MAP) Pulse Ox O2 Delivery O2 Flow Rate FiO2 08/06/19 08:02 100 Ventilator 08/06/19 06:00 90 18 136/71 (92) 08/06/19 04:00 99.5 99.5 I&O Intake and Output 08/06/19 07:00 Intake Total 4108.16 ml Output Total 2605 ml Balance 1503.16 ml IV Total 4108.16 ml Output Urine Total 2205 ml Gastric Drainage Total 400 ml General: Cooperative, No acute distress HEENT: Other (trach intact) Abdomen: Soft, Other (distended) Labs Laboratory Tests Test 08/04/19 19:31 08/04/19 23:53 08/05/19 06:00 08/05/19 06:06 Glucose (Fingerstick) 142 mg/dL (70-99) 145 mg/dL (70-99) 129 mg/dL (70-99) Sodium Level 140 mmol/L (136-145) Potassium Level 3.7 mmol/L (3.5-5.1) Chloride Level 103 mmol/L (98-107) Carbon Dioxide Level 26 mmol/L (21-32) Anion Gap 11 (6-14) Blood Urea Nitrogen 80 mg/dL (7-20) Creatinine 1.6 mg/dL (0.6-1.0) Estimated GFR (Cockcroft-Gault) 34.3 BUN/Creatinine Ratio 50 (6-20) Glucose Level 130 mg/dL (70-99) Calcium Level 8.4 mg/dL (8.5-10.1) Phosphorus Level 5.2 mg/dL (2.6-4.7) Total Bilirubin 0.4 mg/dL (0.2-1.0) Aspartate Amino Transf (AST/SGOT) 23 U/L (15-37) Alanine Aminotransferase (ALT/SGPT) 12 U/L (14-59) Alkaline Phosphatase 52 U/L (46-116) Total Protein 4.9 g/dL (6.4-8.2) Albumin 2.6 g/dL (3.4-5.0) Albumin/Globulin Ratio 1.1 (1.0-1.7) Test 08/05/19 07:00 08/05/19 08:00 08/05/19 13:08 08/05/19 17:06 White Blood Count 5.8 x10^3/uL (4.0-11.0) Red Blood Count 2.40 x10^6/uL (3.50-5.40) Hemoglobin 7.6 g/dL (12.0-15.5) Hematocrit 22.8 % (36.0-47.0) Mean Corpuscular Volume 95 fL (79-100) Mean Corpuscular Hemoglobin 32 pg (25-35) Mean Corpuscular Hemoglobin Concent 33 g/dL (31-37) Red Cell Distribution Width 18.4 % (11.5-14.5) Platelet Count 498 x10^3/uL (140-400) Neutrophils (%) (Auto) 67 % (31-73) Lymphocytes (%) (Auto) 17 % (24-48) Monocytes (%) (Auto) 14 % (0-9) Eosinophils (%) (Auto) 1 % (0-3) Basophils (%) (Auto) 1 % (0-3) Neutrophils # (Auto) 3.9 x10^3/uL (1.8-7.7) Lymphocytes # (Auto) 1.0 x10^3/uL (1.0-4.8) Monocytes # (Auto) 0.8 x10^3/uL (0.0-1.1) Eosinophils # (Auto) 0.0 x10^3/uL (0.0-0.7) Basophils # (Auto) 0.0 x10^3/uL (0.0-0.2) O2 Saturation 98 % (92-99) Arterial Blood pH 7.47 (7.35-7.45) Arterial Blood pCO2 at Patient Temp 33 mmHg (35-46) Arterial Blood pO2 at Patient Temp 136 mmHg (75-108) Arterial Blood HCO3 24 mmol/L (21-28) Arterial Blood Base Excess 0 mmol/L (-3-3) FiO2 35 Glucose (Fingerstick) 181 mg/dL (70-99) 146 mg/dL (70-99) Test 08/06/19 06:10 08/06/19 07:17 White Blood Count 6.3 x10^3/uL (4.0-11.0) Red Blood Count 2.23 x10^6/uL (3.50-5.40) Hemoglobin 7.1 g/dL (12.0-15.5) Hematocrit 21.1 % (36.0-47.0) Mean Corpuscular Volume 95 fL (79-100) Mean Corpuscular Hemoglobin 32 pg (25-35) Mean Corpuscular Hemoglobin Concent 33 g/dL (31-37) Red Cell Distribution Width 18.1 % (11.5-14.5) Platelet Count 539 x10^3/uL (140-400) Neutrophils (%) (Auto) 74 % (31-73) Lymphocytes (%) (Auto) 12 % (24-48) Monocytes (%) (Auto) 14 % (0-9) Eosinophils (%) (Auto) 0 % (0-3) Basophils (%) (Auto) 0 % (0-3) Neutrophils # (Auto) 4.7 x10^3/uL (1.8-7.7) Lymphocytes # (Auto) 0.7 x10^3/uL (1.0-4.8) Monocytes # (Auto) 0.9 x10^3/uL (0.0-1.1) Eosinophils # (Auto) 0.0 x10^3/uL (0.0-0.7) Basophils # (Auto) 0.0 x10^3/uL (0.0-0.2) Sodium Level 141 mmol/L (136-145) Potassium Level 3.3 mmol/L (3.5-5.1) Chloride Level 103 mmol/L (98-107) Carbon Dioxide Level 25 mmol/L (21-32) Anion Gap 13 (6-14) Blood Urea Nitrogen 92 mg/dL (7-20) Creatinine 1.9 mg/dL (0.6-1.0) Estimated GFR (Cockcroft-Gault) 28.1 BUN/Creatinine Ratio 48 (6-20) Glucose Level 152 mg/dL (70-99) Calcium Level 8.6 mg/dL (8.5-10.1) Phosphorus Level 5.2 mg/dL (2.6-4.7) Magnesium Level 1.7 mg/dL (1.8-2.4) Total Bilirubin 0.4 mg/dL (0.2-1.0) Aspartate Amino Transf (AST/SGOT) 23 U/L (15-37) Alanine Aminotransferase (ALT/SGPT) 11 U/L (14-59) Alkaline Phosphatase 49 U/L (46-116) Total Protein 5.1 g/dL (6.4-8.2) Albumin 2.6 g/dL (3.4-5.0) Albumin/Globulin Ratio 1.0 (1.0-1.7) Glucose (Fingerstick) 137 mg/dL (70-99) Laboratory Tests Test 08/05/19 13:08 08/05/19 17:06 08/06/19 06:10 08/06/19 07:17 Glucose (Fingerstick) 181 mg/dL (70-99) 146 mg/dL (70-99) 137 mg/dL (70-99) White Blood Count 6.3 x10^3/uL (4.0-11.0) Red Blood Count 2.23 x10^6/uL (3.50-5.40) Hemoglobin 7.1 g/dL (12.0-15.5) Hematocrit 21.1 % (36.0-47.0) Mean Corpuscular Volume 95 fL (79-100) Mean Corpuscular Hemoglobin 32 pg (25-35) Mean Corpuscular Hemoglobin Concent 33 g/dL (31-37) Red Cell Distribution Width 18.1 % (11.5-14.5) Platelet Count 539 x10^3/uL (140-400) Neutrophils (%) (Auto) 74 % (31-73) Lymphocytes (%) (Auto) 12 % (24-48) Monocytes (%) (Auto) 14 % (0-9) Eosinophils (%) (Auto) 0 % (0-3) Basophils (%) (Auto) 0 % (0-3) Neutrophils # (Auto) 4.7 x10^3/uL (1.8-7.7) Lymphocytes # (Auto) 0.7 x10^3/uL (1.0-4.8) Monocytes # (Auto) 0.9 x10^3/uL (0.0-1.1) Eosinophils # (Auto) 0.0 x10^3/uL (0.0-0.7) Basophils # (Auto) 0.0 x10^3/uL (0.0-0.2) Sodium Level 141 mmol/L (136-145) Potassium Level 3.3 mmol/L (3.5-5.1) Chloride Level 103 mmol/L (98-107) Carbon Dioxide Level 25 mmol/L (21-32) Anion Gap 13 (6-14) Blood Urea Nitrogen 92 mg/dL (7-20) Creatinine 1.9 mg/dL (0.6-1.0) Estimated GFR (Cockcroft-Gault) 28.1 BUN/Creatinine Ratio 48 (6-20) Glucose Level 152 mg/dL (70-99) Calcium Level 8.6 mg/dL (8.5-10.1) Phosphorus Level 5.2 mg/dL (2.6-4.7) Magnesium Level 1.7 mg/dL (1.8-2.4) Total Bilirubin 0.4 mg/dL (0.2-1.0) Aspartate Amino Transf (AST/SGOT) 23 U/L (15-37) Alanine Aminotransferase (ALT/SGPT) 11 U/L (14-59) Alkaline Phosphatase 49 U/L (46-116) Total Protein 5.1 g/dL (6.4-8.2) Albumin 2.6 g/dL (3.4-5.0) Albumin/Globulin Ratio 1.0 (1.0-1.7) Problem List Problems Medical Problems: (1) Acute pancreatitis Status: Acute (2) Cholelithiasis Status: Acute Assessment/Plan stable no surgical plans will FU on thursday 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 APRN Aug 06, 2019 11:14
[2019-08-06] MEDS: TPN PER PHARMACY MC PRN (13:05)
--- NOTE | 2019-08-06 13:07 | NUR ---
Pharmacy TPN Dosing Note S: SCOTT AVILA is a 48 year old F Currently receiving Central Continuous TPN started 07/06/19 B:Pertinent PMH: Necrotizing pancreatitis Height: 5 feet, 8 inches Weight: 103.9 kg Current diet: NPO LABS: Sodium: 141 Potassium: 3.3 Chloride: 103 Calcium: 8.6 Corrected Calcium: 9.72 Magnesium: 1.7 CO2: 25 SCr: 1.9 Glucose: 129-181 Albumin: 2.6 AST: 23 ALT: 11 TPN FORMULA: TPN TYPE: Central Continuous AMINO ACIDS: 125 gm DEXTROSE: 225 gm LIPIDS: 20 gm SODIUM CHLORIDE: 100 mEq POTASSIUM CHLORIDE: 40 mEq MAGNESIUM: 15 mEq CALCIUM: 15 mEq INSULIN: 35 units MULTIPLE VITAMIN: 10 ml TRACE ELEMENTS: 0.5 ml(s) TPN PLAN: Kphos removed from TPN. KCl and magnesium increased R: Change TPN per plan and ordered formula Will monitor electrolytes, glucose, and tolerance to TPN. Raeann Mcdonnell [facility], 08/06/19 [id number]
--- NOTE | 2019-08-06 13:30 | NUR ---
Patient vomiting during dialysis, vomited after returning from dialysis approx 50ml out. Compazine given.
--- NOTE | 2019-08-06 13:53 | PDOC ---
PROGRESS NOTES Subjective Subjective SEEN IN FOLLOW UP OF RENAL FAILURE Objective Objective Vital Signs Date Time Temp Pulse Resp B/P (MAP) Pulse Ox O2 Delivery O2 Flow Rate FiO2 08/06/19 12:00 99.4 97 20 117/78 (91) 100 Ventilator 99.4 08/03/19 01:42 6.0 l Intake and Output 08/06/19 07:00 Intake Total 4108.16 ml Output Total 2605 ml Balance 1503.16 ml IV Total 4108.16 ml Output Urine Total 2205 ml Gastric Drainage Total 400 ml Physical Exam Abdomen: Other (DISTENDED) Extremities: Other (ANASARCA) General: Other (SOMNULENT) Lungs: Clear to auscultation, Normal air movement Psych/Mental Status: Other (SOMNULENT) Diagnosis RENAL FAILURE: Acute (Acute tubular necrosis) Other PANCREATITIS Assessment Assessment Problems Medical Problems: (1) Acute pancreatitis Status: Acute (2) Cholelithiasis Status: Acute Plan Plan of Care SEEN AND EVALUATED AT DIALYSIS. REQUIRED IV ALBUMIN FOR BP SUPPORT DUE TO THIRD SPACING OF FLUID. CONT ON TPN. NEXT DIALYSIS THURSDAY Comment Review of Relevant I have reviewed the following items kolby (where applicable) has been applied. Labs Laboratory Tests Test 08/04/19 19:31 08/04/19 23:53 08/05/19 06:00 08/05/19 06:06 Glucose (Fingerstick) 142 mg/dL (70-99) 145 mg/dL (70-99) 129 mg/dL (70-99) Sodium Level 140 mmol/L (136-145) Potassium Level 3.7 mmol/L (3.5-5.1) Chloride Level 103 mmol/L (98-107) Carbon Dioxide Level 26 mmol/L (21-32) Anion Gap 11 (6-14) Blood Urea Nitrogen 80 mg/dL (7-20) Creatinine 1.6 mg/dL (0.6-1.0) Estimated GFR (Cockcroft-Gault) 34.3 BUN/Creatinine Ratio 50 (6-20) Glucose Level 130 mg/dL (70-99) Calcium Level 8.4 mg/dL (8.5-10.1) Phosphorus Level 5.2 mg/dL (2.6-4.7) Total Bilirubin 0.4 mg/dL (0.2-1.0) Aspartate Amino Transf (AST/SGOT) 23 U/L (15-37) Alanine Aminotransferase (ALT/SGPT) 12 U/L (14-59) Alkaline Phosphatase 52 U/L (46-116) Total Protein 4.9 g/dL (6.4-8.2) Albumin 2.6 g/dL (3.4-5.0) Albumin/Globulin Ratio 1.1 (1.0-1.7) Test 08/05/19 07:00 08/05/19 08:00 08/05/19 13:08 08/05/19 17:06 White Blood Count 5.8 x10^3/uL (4.0-11.0) Red Blood Count 2.40 x10^6/uL (3.50-5.40) Hemoglobin 7.6 g/dL (12.0-15.5) Hematocrit 22.8 % (36.0-47.0) Mean Corpuscular Volume 95 fL (79-100) Mean Corpuscular Hemoglobin 32 pg (25-35) Mean Corpuscular Hemoglobin Concent 33 g/dL (31-37) Red Cell Distribution Width 18.4 % (11.5-14.5) Platelet Count 498 x10^3/uL (140-400) Neutrophils (%) (Auto) 67 % (31-73) Lymphocytes (%) (Auto) 17 % (24-48) Monocytes (%) (Auto) 14 % (0-9) Eosinophils (%) (Auto) 1 % (0-3) Basophils (%) (Auto) 1 % (0-3) Neutrophils # (Auto) 3.9 x10^3/uL (1.8-7.7) Lymphocytes # (Auto) 1.0 x10^3/uL (1.0-4.8) Monocytes # (Auto) 0.8 x10^3/uL (0.0-1.1) Eosinophils # (Auto) 0.0 x10^3/uL (0.0-0.7) Basophils # (Auto) 0.0 x10^3/uL (0.0-0.2) O2 Saturation 98 % (92-99) Arterial Blood pH 7.47 (7.35-7.45) Arterial Blood pCO2 at Patient Temp 33 mmHg (35-46) Arterial Blood pO2 at Patient Temp 136 mmHg (75-108) Arterial Blood HCO3 24 mmol/L (21-28) Arterial Blood Base Excess 0 mmol/L (-3-3) FiO2 35 Glucose (Fingerstick) 181 mg/dL (70-99) 146 mg/dL (70-99) Test 08/06/19 06:10 08/06/19 07:17 White Blood Count 6.3 x10^3/uL (4.0-11.0) Red Blood Count 2.23 x10^6/uL (3.50-5.40) Hemoglobin 7.1 g/dL (12.0-15.5) Hematocrit 21.1 % (36.0-47.0) Mean Corpuscular Volume 95 fL (79-100) Mean Corpuscular Hemoglobin 32 pg (25-35) Mean Corpuscular Hemoglobin Concent 33 g/dL (31-37) Red Cell Distribution Width 18.1 % (11.5-14.5) Platelet Count 539 x10^3/uL (140-400) Neutrophils (%) (Auto) 74 % (31-73) Lymphocytes (%) (Auto) 12 % (24-48) Monocytes (%) (Auto) 14 % (0-9) Eosinophils (%) (Auto) 0 % (0-3) Basophils (%) (Auto) 0 % (0-3) Neutrophils # (Auto) 4.7 x10^3/uL (1.8-7.7) Lymphocytes # (Auto) 0.7 x10^3/uL (1.0-4.8) Monocytes # (Auto) 0.9 x10^3/uL (0.0-1.1) Eosinophils # (Auto) 0.0 x10^3/uL (0.0-0.7) Basophils # (Auto) 0.0 x10^3/uL (0.0-0.2) Sodium Level 141 mmol/L (136-145) Potassium Level 3.3 mmol/L (3.5-5.1) Chloride Level 103 mmol/L (98-107) Carbon Dioxide Level 25 mmol/L (21-32) Anion Gap 13 (6-14) Blood Urea Nitrogen 92 mg/dL (7-20) Creatinine 1.9 mg/dL (0.6-1.0) Estimated GFR (Cockcroft-Gault) 28.1 BUN/Creatinine Ratio 48 (6-20) Glucose Level 152 mg/dL (70-99) Calcium Level 8.6 mg/dL (8.5-10.1) Phosphorus Level 5.2 mg/dL (2.6-4.7) Magnesium Level 1.7 mg/dL (1.8-2.4) Total Bilirubin 0.4 mg/dL (0.2-1.0) Aspartate Amino Transf (AST/SGOT) 23 U/L (15-37) Alanine Aminotransferase (ALT/SGPT) 11 U/L (14-59) Alkaline Phosphatase 49 U/L (46-116) Total Protein 5.1 g/dL (6.4-8.2) Albumin 2.6 g/dL (3.4-5.0) Albumin/Globulin Ratio 1.0 (1.0-1.7) Glucose (Fingerstick) 137 mg/dL (70-99) Laboratory Tests Test 08/05/19 17:06 08/06/19 06:10 08/06/19 07:17 Glucose (Fingerstick) 146 mg/dL (70-99) 137 mg/dL (70-99) White Blood Count 6.3 x10^3/uL (4.0-11.0) Red Blood Count 2.23 x10^6/uL (3.50-5.40) Hemoglobin 7.1 g/dL (12.0-15.5) Hematocrit 21.1 % (36.0-47.0) Mean Corpuscular Volume 95 fL (79-100) Mean Corpuscular Hemoglobin 32 pg (25-35) Mean Corpuscular Hemoglobin Concent 33 g/dL (31-37) Red Cell Distribution Width 18.1 % (11.5-14.5) Platelet Count 539 x10^3/uL (140-400) Neutrophils (%) (Auto) 74 % (31-73) Lymphocytes (%) (Auto) 12 % (24-48) Monocytes (%) (Auto) 14 % (0-9) Eosinophils (%) (Auto) 0 % (0-3) Basophils (%) (Auto) 0 % (0-3) Neutrophils # (Auto) 4.7 x10^3/uL (1.8-7.7) Lymphocytes # (Auto) 0.7 x10^3/uL (1.0-4.8) Monocytes # (Auto) 0.9 x10^3/uL (0.0-1.1) Eosinophils # (Auto) 0.0 x10^3/uL (0.0-0.7) Basophils # (Auto) 0.0 x10^3/uL (0.0-0.2) Sodium Level 141 mmol/L (136-145) Potassium Level 3.3 mmol/L (3.5-5.1) Chloride Level 103 mmol/L (98-107) Carbon Dioxide Level 25 mmol/L (21-32) Anion Gap 13 (6-14) Blood Urea Nitrogen 92 mg/dL (7-20) Creatinine 1.9 mg/dL (0.6-1.0) Estimated GFR (Cockcroft-Gault) 28.1 BUN/Creatinine Ratio 48 (6-20) Glucose Level 152 mg/dL (70-99) Calcium Level 8.6 mg/dL (8.5-10.1) Phosphorus Level 5.2 mg/dL (2.6-4.7) Magnesium Level 1.7 mg/dL (1.8-2.4) Total Bilirubin 0.4 mg/dL (0.2-1.0) Aspartate Amino Transf (AST/SGOT) 23 U/L (15-37) Alanine Aminotransferase (ALT/SGPT) 11 U/L (14-59) Alkaline Phosphatase 49 U/L (46-116) Total Protein 5.1 g/dL (6.4-8.2) Albumin 2.6 g/dL (3.4-5.0) Albumin/Globulin Ratio 1.0 (1.0-1.7) Microbiology 08/03/19 Aerobic and Anaerobic Culture, Resulted Pending 08/03/19 Anaerobic Culture Result 1 (ALEXANDRA), Resulted Pending 08/03/19 Aerobic Culture, Resulted Pending 08/03/19 Aerobic Culture Result 1 (ALEXANDRA), Resulted Pending 08/03/19 Gram Stain - Final, Resulted 08/03/19 Gram Stain Result 1 (ALEXANDRA) - Final, Resulted 08/03/19 Gram Stain Result 2 (ALEXANDRA) - Final, Resulted 08/02/19 Blood Culture - Preliminary, Resulted NO GROWTH AFTER 3 DAYS 07/31/19 Urine Culture - Final, Complete 07/31/19 Urine Culture Result 1 (ALEXANDRA) - Final, Complete Medications Current Medications Sodium Chloride 1,000 ml @ 1,000 mls/hr Q1H IV Last administered on 07/04/19at 03:00; Start 07/04/19 at 03:00; Stop 07/04/19 at 03:59; Status DC Ondansetron HCl (Zofran) 4 mg 1X ONCE IVP Last administered on 07/04/19at 03:27; Start 07/04/19 at 03:00; Stop 07/04/19 at 03:01; Status DC Morphine Sulfate (Morphine Sulfate) 4 mg 1X ONCE IV ; Start 07/04/19 at 03:00; Stop 07/04/19 at 03:01; Status Cancel Ketorolac Tromethamine (Toradol 30mg Vial) 30 mg 1X ONCE IV Last administered on 07/04/19at 02:54; Start 07/04/19 at 03:00; Stop 07/04/19 at 03:01; Status DC Fentanyl Citrate (Fentanyl 2ml Vial) 25 mcg 1X ONCE IVP Last administered on 07/04/19at 03:23; Start 07/04/19 at 03:30; Stop 07/04/19 at 03:31; Status DC Fentanyl Citrate (Fentanyl 2ml Vial) 100 mcg STK-MED ONCE .ROUTE ; Start 07/04/19 at 03:18; Stop 07/04/19 at 03:18; Status DC Iohexol (Omnipaque 350 Mg/ml) 90 ml 1X ONCE IV Last administered on 07/04/19at 03:25; Start 07/04/19 at 03:30; Stop 07/04/19 at 03:31; Status DC Info (CONTRAST GIVEN -- Rx MONITORING) 1 each PRN DAILY PRN MC SEE COMMENTS; Start 07/04/19 at 03:30; Stop 07/06/19 at 03:29; Status DC Hydromorphone HCl (Dilaudid) 0.5 mg 1X ONCE IV Last administered on 07/04/19at 03:55; Start 07/04/19 at 04:30; Stop 07/04/19 at 04:32; Status DC Ondansetron HCl (Zofran) 4 mg PRN Q8HRS PRN IV NAUSEA/VOMITING 1ST CHOICE; Start 07/04/19 at 05:00; Stop 07/04/19 at 09:27; Status DC Morphine Sulfate (Morphine Sulfate) 2 mg PRN Q2HR PRN IV SEVERE PAIN 7-10 Last administered on 07/05/19at 12:26; Start 07/04/19 at 05:00; Stop 07/05/19 at 14:15; Status DC Sodium Chloride 1,000 ml @ 125 mls/hr Q8H IV Last administered on 07/04/19at 20:56; Start 07/04/19 at 05:00; Stop 07/05/19 at 04:59; Status DC Hydromorphone HCl (Dilaudid) 0.5 mg PRN Q3HRS PRN IV SEVERE PAIN 7-10 Last administered on 07/05/19at 10:06; Start 07/04/19 at 05:00; Stop 07/05/19 at 12:01; Status DC Piperacillin Sod/ Tazobactam Sod 4.5 gm/Sodium Chloride 100 ml @ 200 mls/hr 1X ONCE IV Last administered on 07/04/19at 05:44; Start 07/04/19 at 06:00; Stop 07/04/19 at 06:29; Status DC Ondansetron HCl (Zofran) 4 mg PRN Q4HRS PRN IV NAUSEA/VOMITING 1ST CHOICE Last administered on 08/05/19at 18:01; Start 07/04/19 at 09:30 Insulin Human Lispro (HumaLOG) 0-9 UNITS Q6HRS SQ Last administered on 08/05/19at 12:00; Start 07/04/19 at 09:30 Dextrose (Dextrose 50%-Water Syringe) 12.5 gm PRN Q15MIN PRN IV SEE COMMENTS; Start 07/04/19 at 09:30 Pantoprazole Sodium (PROTONIX VIAL for IV PUSH) 40 mg DAILYAC IVP Last administered on 08/05/19at 09:49; Start 07/04/19 at 11:30 Prochlorperazine Edisylate (Compazine) 10 mg PRN Q6HRS PRN IV NAUSEA/VOMITING, 2nd CHOICE Last administered on 08/05/19at 20:45; Start 07/04/19 at 17:45 Atenolol (Tenormin) 100 mg DAILY PO ; Start 07/05/19 at 09:00; Stop 07/04/19 at 20:08; Status DC Metoprolol Tartrate (Lopressor Vial) 2.5 mg Q6HRS IVP Last administered on 07/05/19at 05:51; Start 07/04/19 at 20:15; Stop 07/05/19 at 10:02; Status DC Metoprolol Tartrate (Lopressor Vial) 5 mg Q6HRS IVP Last administered on 07/14/19at 00:12; Start 07/05/19 at 10:15; Stop 07/16/19 at 08:48; Status DC Hydromorphone HCl (Dilaudid) 1 mg PRN Q3HRS PRN IV SEVERE PAIN 7-10 Last administered on 07/11/19at 05:13; Start 07/05/19 at 12:00; Stop 07/19/19 at 00:25; Status DC Lidocaine HCl (Buffered Lidocaine 1%) 3 ml STK-MED ONCE .ROUTE ; Start 07/05/19 at 12:55; Stop 07/05/19 at 12:56; Status DC Albumin Human 500 ml @ 125 mls/hr 1X ONCE IV Last administered on 07/05/19at 14:33; Start 07/05/19 at 14:30; Stop 07/05/19 at 18:32; Status DC Norepinephrine Bitartrate 8 mg/ Dextrose 258 ml @ 17.299 mls/ hr CONT PRN IV PER PROTOCOL Last administered on 08/02/19at 12:48; Start 07/05/19 at 15:30; Stop 08/05/19 at 09:19; Status DC Sodium Chloride 1,000 ml @ 125 mls/hr Q8H IV Last administered on 07/05/19at 21:04; Start 07/05/19 at 16:00; Stop 07/06/19 at 02:42; Status DC Albumin Human 500 ml @ 125 mls/hr PRN BID PRN IV After every 2L NSS & BP < 90mm Last administered on 07/20/19at 14:21; Start 07/05/19 at 16:00 Iohexol (Omnipaque 300 Mg/ml) 60 ml 1X ONCE IV Last administered on 07/05/19at 17:20; Start 07/05/19 at 17:00; Stop 07/05/19 at 17:01; Status DC Info (CONTRAST GIVEN -- Rx MONITORING) 1 each PRN DAILY PRN MC SEE COMMENTS; Start 07/05/19 at 17:00; Stop 07/07/19 at 16:59; Status DC Meropenem 1 gm/ Sodium Chloride 100 ml @ 200 mls/hr Q8HRS IV Last administered on 07/06/19at 05:45; Start 07/05/19 at 20:00; Stop 07/06/19 at 08:48; Status DC Furosemide (Lasix) 40 mg 1X ONCE IVP Last administered on 07/05/19at 22:12; Start 07/05/19 at 22:30; Stop 07/05/19 at 22:31; Status DC Calcium Chloride 1000 mg/Sodium Chloride 110 ml @ 220 mls/hr 1X ONCE IV Last administered on 07/05/19at 22:11; Start 07/05/19 at 22:30; Stop 07/05/19 at 22:59; Status DC Albuterol Sulfate (Ventolin Neb Soln) 2.5 mg 1X ONCE NEB Last administered on 07/06/19at 00:56; Start 07/05/19 at 22:30; Stop 07/05/19 at 22:31; Status DC Insulin Human Regular (HumuLIN R VIAL) 5 unit 1X ONCE IV Last administered on 07/05/19at 22:14; Start 07/05/19 at 22:30; Stop 07/05/19 at 22:31; Status DC Magnesium Sulfate 50 ml @ 25 mls/hr 1X ONCE IV Last administered on 07/06/19at 02:57; Start 07/06/19 at 03:00; Stop 07/06/19 at 04:59; Status DC Calcium Gluconate 1000 mg/Sodium Chloride 110 ml @ 220 mls/hr 1X ONCE IV Last administered on 07/06/19at 02:46; Start 07/06/19 at 03:00; Stop 07/06/19 at 03:29; Status DC Sodium Chloride 1,000 ml @ 200 mls/hr Q5H IV Last administered on 07/06/19at 02:46; Start 07/06/19 at 03:00; Stop 07/06/19 at 10:21; Status DC Calcium Gluconate 1000 mg/Sodium Chloride 110 ml @ 220 mls/hr 1X ONCE IV Last administered on 07/06/19at 03:21; Start 07/06/19 at 03:30; Stop 07/06/19 at 03:59; Status DC Sodium Bicarbonate 50 meq/Sodium Chloride 1,050 ml @ 75 mls/hr Q14H IV Last administered on 07/10/19at 21:10; Start 07/06/19 at 07:30; Stop 07/11/19 at 10:28; Status DC Calcium Gluconate 2000 mg/Sodium Chloride 120 ml @ 220 mls/hr 1X ONCE IV Last administered on 07/06/19at 09:05; Start 07/06/19 at 07:30; Stop 07/06/19 at 08:02; Status DC Lidocaine HCl (Xylocaine-Mpf 1% 2ml Vial) 2 ml STK-MED ONCE .ROUTE ; Start 07/06/19 at 08:47; Stop 07/06/19 at 08:47; Status DC Meropenem 500 mg/ Sodium Chloride 50 ml @ 100 mls/hr Q12HR IV Last administered on 07/11/19at 21:01; Start 07/06/19 at 18:00; Stop 07/12/19 at 07:58; Status DC Lidocaine HCl (Buffered Lidocaine 1%) 3 ml STK-MED ONCE .ROUTE ; Start 07/06/19 at 09:46; Stop 07/06/19 at 09:46; Status DC Lidocaine HCl (Buffered Lidocaine 1%) 6 ml 1X ONCE INJ Last administered on 07/06/19at 10:26; Start 07/06/19 at 10:15; Stop 07/06/19 at 10:16; Status DC Info (Tpn Per Pharmacy) 1 each PRN DAILY PRN MC SEE COMMENTS Last administered on 08/06/19at 13:05; Start 07/06/19 at 12:00 Sodium Chloride 1,000 ml @ 1,000 mls/hr Q1H PRN IV hypotension; Start 07/06/19 at 12:07; Stop 07/06/19 at 18:06; Status DC Diphenhydramine HCl (Benadryl) 25 mg 1X PRN PRN IV ITCHING; Start 07/06/19 at 12:15; Stop 07/07/19 at 12:14; Status DC Diphenhydramine HCl (Benadryl) 25 mg 1X PRN PRN IV ITCHING; Start 07/06/19 at 12:15; Stop 07/07/19 at 12:14; Status DC Sodium Chloride 1,000 ml @ 400 mls/hr Q2H30M PRN IV PATENCY; Start 07/06/19 at 12:07; Stop 07/07/19 at 00:06; Status DC Info (PHARMACY MONITORING -- do not chart) 1 each PRN DAILY PRN MC SEE COMMENTS; Start 07/06/19 at 12:15; Stop 07/08/19 at 08:13; Status DC Sodium Chloride 90 meq/Calcium Gluconate 10 meq/ Multivitamins 10 ml/Chromium/ Copper/Manganese/ Seleni/Zn 1 ml/ Total Parenteral Nutrition/Amino Acids/Dextrose/ Fat Emulsion Intravenous 55.005 ml @ 2.292 mls/hr TPN CONT IV ; Start 07/06/19 at 22:00; Stop 07/06/19 at 12:33; Status DC Info (Tpn Per Pharmacy) 1 each PRN DAILY PRN MC SEE COMMENTS; Start 07/06/19 at 12:30; Status UNV Sodium Chloride 90 meq/Calcium Gluconate 10 meq/ Multivitamins 10 ml/Chromium/ Copper/Manganese/ Seleni/Zn 0.5 ml/ Total Parenteral Nutrition/Amino Acids/Dextrose/ Fat Emulsion Intravenous 1,512 ml @ 63 mls/hr TPN CONT IV Last administered on 07/06/19at 22:06; Start 07/06/19 at 22:00; Stop 07/07/19 at 21:59; Status DC Calcium Carbonate/ Glycine (Tums) 500 mg PRN AFTMEALHC PRN PO INDIGESTION; Start 07/06/19 at 17:45 Calcium Gluconate (Calcium Gluconate) 2,000 mg 1X ONCE IVP Last administered on 07/07/19at 02:19; Start 07/07/19 at 02:15; Stop 07/07/19 at 02:16; Status DC Calcium Chloride 3000 mg/Sodium Chloride 1,030 ml @ 50 mls/hr [id number] IV Last administered on 07/09/19at 02:17; Start 07/07/19 at 08:00; Stop 07/09/19 at 15:23; Status DC Lorazepam (Ativan Inj) 1 mg PRN Q4HRS PRN IVP ANXIETY / AGITATION, 2nd choic Last administered on 08/05/19at 03:51; Start 07/07/19 at 09:00; Stop 08/05/19 at 09:19; Status DC Sodium Chloride 1,000 ml @ 1,000 mls/hr Q1H PRN IV hypotension; Start 07/07/19 at 08:56; Stop 07/07/19 at 14:55; Status DC Albumin Human 200 ml @ 200 mls/hr 1X PRN PRN IV Hypotension; Start 07/07/19 at 09:00; Stop 07/07/19 at 14:59; Status DC Diphenhydramine HCl (Benadryl) 25 mg 1X PRN PRN IV ITCHING; Start 07/07/19 at 09:00; Stop 07/08/19 at 08:59; Status DC Diphenhydramine HCl (Benadryl) 25 mg 1X PRN PRN IV ITCHING; Start 07/07/19 at 09:00; Stop 07/08/19 at 08:59; Status DC Sodium Chloride 1,000 ml @ 400 mls/hr Q2H30M PRN IV PATENCY; Start 07/07/19 at 08:56; Stop 07/07/19 at 20:55; Status DC Info (PHARMACY MONITORING -- do not chart) 1 each PRN DAILY PRN MC SEE COMMENTS; Start 07/07/19 at 09:00; Status UNV Info (PHARMACY MONITORING -- do not chart) 1 each PRN DAILY PRN MC SEE COMMENTS; Start 07/07/19 at 09:00; Stop 07/08/19 at 08:13; Status DC Digoxin (Lanoxin) 500 mcg 1X ONCE IV Last administered on 07/07/19at 10:04; Start 07/07/19 at 10:00; Stop 07/07/19 at 10:01; Status DC Digoxin (Lanoxin) 125 mcg 1X ONCE IV Last administered on 07/07/19at 17:10; Start 07/07/19 at 18:00; Stop 07/07/19 at 18:01; Status DC Magnesium Sulfate 100 ml @ 25 mls/hr 1X ONCE IV Last administered on 07/07/19at 12:48; Start 07/07/19 at 13:00; Stop 07/07/19 at 16:59; Status DC Sodium Chloride 90 meq/Magnesium Sulfate 10 meq/ Calcium Gluconate 20 meq/ Multivitamins 10 ml/Chromium/ Copper/Manganese/ Seleni/Zn 0.5 ml/ Total Parenteral Nutrition/Amino Acids/Dextrose/ Fat Emulsion Intravenous 1,512 ml @ 63 mls/hr TPN CONT IV Last administered on 07/07/19at 22:25; Start 07/07/19 at 22:00; Stop 07/08/19 at 21:59; Status DC Sodium Chloride 1,000 ml @ 1,000 mls/hr Q1H PRN IV hypotension; Start 07/08/19 at 08:05; Stop 07/08/19 at 14:04; Status DC Albumin Human 200 ml @ 200 mls/hr 1X ONCE IV Last administered on 07/08/19at 08:57; Start 07/08/19 at 08:15; Stop 07/08/19 at 09:14; Status DC Diphenhydramine HCl (Benadryl) 25 mg 1X PRN PRN IV ITCHING; Start 07/08/19 at 08:15; Stop 07/09/19 at 08:14; Status DC Diphenhydramine HCl (Benadryl) 25 mg 1X PRN PRN IV ITCHING; Start 07/08/19 at 08:15; Stop 07/09/19 at 08:14; Status DC Sodium Chloride 1,000 ml @ 400 mls/hr Q2H30M PRN IV PATENCY; Start 07/08/19 at 08:05; Stop 07/08/19 at 20:04; Status DC Info (PHARMACY MONITORING -- do not chart) 1 each PRN DAILY PRN MC SEE COMMENTS; Start 07/08/19 at 08:15; Stop 07/12/19 at 07:57; Status DC Sodium Chloride 90 meq/Potassium Chloride 15 meq/ Potassium Phosphate 10 mmol/ Magnesium Sulfate 10 meq/Calcium Gluconate 20 meq/ Multivitamins 10 ml/Chromium/ Copper/Manganese/ Seleni/Zn 0.5 ml/ Total Parenteral Nutrition/Amino Acids/Dextrose/ Fat Emulsion Intravenous 1,512 ml @ 63 mls/hr TPN CONT IV Last administered on 07/08/19at 21:01; Start 07/08/19 at 22:00; Stop 07/09/19 at 21:59; Status DC Potassium Chloride/Water 100 ml @ 100 mls/hr 1X ONCE IV Last administered on 07/08/19at 14:09; Start 07/08/19 at 14:00; Stop 07/08/19 at 14:59; Status DC Benzocaine (Hurricaine One) 1 spray 1X ONCE MM Last administered on 07/08/19at 16:38; Start 07/08/19 at 14:30; Stop 07/08/19 at 14:31; Status DC Lidocaine HCl (Glydo (Lidocaine) Jelly) 1 ramu 1X ONCE MM Last administered on 07/08/19at 16:38; Start 07/08/19 at 14:30; Stop 07/08/19 at 14:31; Status DC Linezolid/Dextrose 300 ml @ 300 mls/hr Q12HR IV Last administered on 07/14/19at 21:04; Start 07/08/19 at 20:00; Stop 07/15/19 at 07:50; Status DC Acetaminophen (Tylenol) 650 mg PRN Q6HRS PRN PO MILD PAIN / TEMP; Start 07/09/19 at 03:30; Stop 07/09/19 at 03:36; Status DC Acetaminophen (Tylenol) 650 mg PRN Q6HRS PRN PEG MILD PAIN / TEMP Last administered on 08/04/19at 19:56; Start 07/09/19 at 03:36 Sodium Chloride 1,000 ml @ 1,000 mls/hr Q1H PRN IV hypotension; Start 07/09/19 at 07:50; Stop 07/09/19 at 13:49; Status DC Albumin Human 200 ml @ 200 mls/hr 1X PRN PRN IV Hypotension; Start 07/09/19 at 08:00; Stop 07/09/19 at 13:59; Status DC Sodium Chloride (Normal Saline Flush) 10 ml 1X PRN PRN IV AP catheter pack; Start 07/09/19 at 08:00; Stop 07/10/19 at 07:59; Status DC Sodium Chloride (Normal Saline Flush) 10 ml 1X PRN PRN IV [employer] PATH[employer] catheter pack; Start 07/09/19 at 08:00; Stop 07/10/19 at 07:59; Status DC Sodium Chloride 1,000 ml @ 400 mls/hr Q2H30M PRN IV PATENCY; Start 07/09/19 at 07:50; Stop 07/09/19 at 19:49; Status DC Info (PHARMACY MONITORING -- do not chart) 1 each PRN DAILY PRN MC SEE COMMENTS; Start 07/09/19 at 08:00; Status UNV Info (PHARMACY MONITORING -- do not chart) 1 each PRN DAILY PRN MC SEE COMMENTS; Start 07/09/19 at 08:00; Stop 07/11/19 at 08:25; Status DC Sodium Chloride 90 meq/Potassium Chloride 15 meq/ Potassium Phosphate 10 mmol/ Magnesium Sulfate 10 meq/Calcium Gluconate 20 meq/ Multivitamins 10 ml/Chromium/ Copper/Manganese/ Seleni/Zn 0.5 ml/ Total Parenteral Nutrition/Amino Acids/Dextrose/ Fat Emulsion Intravenous 1,512 ml @ 63 mls/hr TPN CONT IV Last administered on 07/09/19at 20:57; Start 07/09/19 at 22:00; Stop 07/10/19 at 21:59; Status DC Sodium Chloride 90 meq/Potassium Chloride 15 meq/ Potassium Phosphate 15 mmol/ Magnesium Sulfate 10 meq/Calcium Gluconate 20 meq/ Multivitamins 10 ml/Chromium/ Copper/Manganese/ Seleni/Zn 0.5 ml/ Total Parenteral Nutrition/Amino Acids/Dextrose/ Fat Emulsion Intravenous 1,512 ml @ 63 mls/hr TPN CONT IV ; Start 07/10/19 at 22:00; Stop 07/10/19 at 14:16; Status DC Sodium Chloride 90 meq/Potassium Chloride 15 meq/ Potassium Phosphate 15 mmol/ Magnesium Sulfate 10 meq/Calcium Gluconate 20 meq/ Multivitamins 10 ml/Chromium/ Copper/Manganese/ Seleni/Zn 0.5 ml/ Total Parenteral Nutrition/Amino Acids/Dextrose/ Fat Emulsion Intravenous 1,200 ml @ 50 mls/hr TPN CONT IV ; Start 07/10/19 at 22:00; Stop 07/10/19 at 14:17; Status DC Sodium Chloride 90 meq/Potassium Chloride 15 meq/ Potassium Phosphate 10 mmol/ Magnesium Sulfate 10 meq/Calcium Gluconate 20 meq/ Multivitamins 10 ml/Chromium/ Copper/Manganese/ Seleni/Zn 0.5 ml/ Total Parenteral Nutrition/Amino Acids/Dextrose/ Fat Emulsion Intravenous 1,200 ml @ 50 mls/hr TPN CONT IV Last administered on 07/10/19at 23:29; Start 07/10/19 at 22:00; Stop 07/11/19 at 21:59; Status DC Sodium Chloride 1,000 ml @ 1,000 mls/hr Q1H PRN IV hypotension; Start 07/11/19 at 07:28; Stop 07/11/19 at 13:27; Status DC Albumin Human 200 ml @ 200 mls/hr 1X ONCE IV Last administered on 07/11/19at 08:51; Start 07/11/19 at 07:30; Stop 07/11/19 at 08:29; Status DC Diphenhydramine HCl (Benadryl) 25 mg 1X PRN PRN IV ITCHING; Start 07/11/19 at 07:30; Stop 07/12/19 at 07:29; Status DC Diphenhydramine HCl (Benadryl) 25 mg 1X PRN PRN IV ITCHING; Start 07/11/19 at 07:30; Stop 07/12/19 at 07:29; Status DC Sodium Chloride 1,000 ml @ 400 mls/hr Q2H30M PRN IV PATENCY; Start 07/11/19 at 07:28; Stop 07/11/19 at 19:27; Status DC Info (PHARMACY MONITORING -- do not chart) 1 each PRN DAILY PRN MC SEE COMMENTS; Start 07/11/19 at 07:30; Stop 07/22/19 at 13:01; Status DC Metronidazole 100 ml @ 100 mls/hr Q6HRS IV Last administered on 07/27/19at 06:26; Start 07/11/19 at 08:30; Stop 07/27/19 at 09:58; Status DC Micafungin Sodium 100 mg/Dextrose 100 ml @ 100 mls/hr Q24H IV Last administered on 08/05/19at 09:50; Start 07/11/19 at 09:00 Propofol 0 ml @ As Directed STK-MED ONCE IV ; Start 07/11/19 at 07:53; Stop 07/11/19 at 07:53; Status DC Etomidate (Amidate) 20 mg STK-MED ONCE IV ; Start 07/11/19 at 07:53; Stop 07/11/19 at 07:54; Status DC Midazolam HCl (Versed) 5 mg STK-MED ONCE .ROUTE ; Start 07/11/19 at 07:57; Stop 07/11/19 at 07:57; Status DC Fentanyl Citrate 30 ml @ 0 mls/hr CONT PRN IV SEE PROTOCOL Last administered on 08/05/19at 06:12; Start 07/11/19 at 08:15; Stop 08/05/19 at 09:19; Status DC Artificial Tears (Artificial Tears) 1 drop PRN Q1HR PRN OU DRY EYE, 1st choice; Start 07/11/19 at 08:15 Midazolam HCl 50 mg/Sodium Chloride 50 ml @ 0 mls/hr CONT PRN IV SEE PROTOCOL Last administered on 07/14/19at 22:39; Start 07/11/19 at 08:15; Stop 07/16/19 at 15:59; Status DC Etomidate (Amidate) 8 mg 1X ONCE IV Last administered on 07/11/19at 08:33; Start 07/11/19 at 08:30; Stop 07/11/19 at 08:31; Status DC Succinylcholine Chloride (Anectine) 120 mg 1X ONCE IV Last administered on 07/11/19at 08:34; Start 07/11/19 at 08:30; Stop 07/11/19 at 08:31; Status DC Midazolam HCl (Versed) 5 mg 1X ONCE IV ; Start 07/11/19 at 08:30; Stop 07/11/19 at 08:31; Status DC Potassium Chloride 15 meq/ Bicarbonate Dialysis Soln w/ out KCl 5,007.5 ml @ 1,000 mls/ hr Q5H1M IV Last administered on 07/12/19at 11:11; Start 07/11/19 at 12:00; Stop 07/12/19 at 11:15; Status DC Potassium Chloride 15 meq/ Bicarbonate Dialysis Soln w/ out KCl 5,007.5 ml @ 1,000 mls/ hr Q5H1M IV Last administered on 07/12/19at 11:12; Start 07/11/19 at 12:00; Stop 07/12/19 at 11:17; Status DC Potassium Chloride 15 meq/ Bicarbonate Dialysis Soln w/ out KCl 5,007.5 ml @ 1,000 mls/ hr Q5H1M IV Last administered on 07/12/19at 11:11; Start 07/11/19 at 12:00; Stop 07/12/19 at 11:19; Status DC Sodium Chloride 90 meq/Potassium Chloride 15 meq/ Potassium Phosphate 10 mmol/ Magnesium Sulfate 10 meq/Calcium Gluconate 20 meq/ Multivitamins 10 ml/Chromium/ Copper/Manganese/ Seleni/Zn 0.5 ml/ Total Parenteral Nutrition/Amino Acids/Dextrose/ Fat Emulsion Intravenous 1,400 ml @ 58.333 mls/ hr TPN CONT IV Last administered on 07/11/19at 21:42; Start 07/11/19 at 22:00; Stop 07/12/19 at 21:59; Status DC Heparin Sodium (Porcine) (Heparin Sodium) 5,000 unit Q8HRS SQ Last administered on 07/16/19at 05:55; Start 07/11/19 at 15:00; Stop 07/16/19 at 13:28; Status DC Meropenem 500 mg/ Sodium Chloride 50 ml @ 100 mls/hr Q6HRS IV Last administered on 07/13/19at 06:00; Start 07/12/19 at 09:00; Stop 07/13/19 at 07:29; Status DC Potassium Phosphate 20 mmol/ Sodium Chloride 106.6667 ml @ 51.667 m... 1X ONCE IV Last administered on 07/12/19at 11:22; Start 07/12/19 at 10:15; Stop 07/12/19 at 12:18; Status DC Acetaminophen (Tylenol Supp) 650 mg PRN Q6HRS PRN WI MILD PAIN / TEMP Last administered on 08/05/19at 10:25; Start 07/12/19 at 10:30 Potassium Chloride/Water 100 ml @ 100 mls/hr Q1H IV Last administered on 07/12/19at 12:12; Start 07/12/19 at 11:00; Stop 07/12/19 at 12:59; Status DC Potassium Chloride 20 meq/ Bicarbonate Dialysis Soln w/ out KCl 5,010 ml @ 1,000 mls/hr Q5H1M IV Last administered on 07/13/19at 08:48; Start 07/12/19 at 12:00; Stop 07/13/19 at 13:03; Status DC Potassium Chloride 20 meq/ Bicarbonate Dialysis Soln w/ out KCl 5,010 ml @ 1,000 mls/hr Q5H1M IV Last administered on 07/17/19at 14:52; Start 07/12/19 at 11:30; Stop 07/17/19 at 19:59; Status DC Potassium Chloride 20 meq/ Bicarbonate Dialysis Soln w/ out KCl 5,010 ml @ 1,000 mls/hr Q5H1M IV Last administered on 07/17/19at 14:53; Start 07/12/19 at 11:30; Stop 07/17/19 at 19:59; Status DC Sodium Chloride 90 meq/Potassium Chloride 15 meq/ Potassium Phosphate 15 mmol/ Magnesium Sulfate 10 meq/Calcium Gluconate 15 meq/ Multivitamins 10 ml/Chromium/ Copper/Manganese/ Seleni/Zn 0.5 ml/ Total Parenteral Nutrition/Amino Acids/Dextrose/ Fat Emulsion Intravenous 1,400 ml @ 58.333 mls/ hr TPN CONT IV Last administered on 07/12/19at 22:17; Start 07/12/19 at 22:00; Stop 07/13/19 at 21:59; Status DC Cefepime HCl (Maxipime) 2 gm Q12HR IVP Last administered on 07/26/19at 20:56; Start 07/13/19 at 09:00; Stop 07/27/19 at 09:58; Status DC Daptomycin 500 mg/ Sodium Chloride 50 ml @ 100 mls/hr Q48H IV Last administered on 07/29/19at 09:57; Start 07/13/19 at 08:30; Stop 07/29/19 at 10:07; Status DC Lidocaine HCl (Buffered Lidocaine 1%) 3 ml 1X ONCE INJ Last administered on 07/13/19at 10:27; Start 07/13/19 at 10:30; Stop 07/13/19 at 10:31; Status DC Potassium Phosphate 20 mmol/ Sodium Chloride 106.6667 ml @ 51.667 m... 1X ONCE IV Last administered on 07/13/19at 12:51; Start 07/13/19 at 13:00; Stop 07/13/19 at 15:03; Status DC Sodium Chloride 90 meq/Potassium Chloride 15 meq/ Potassium Phosphate 18 mmol/ Magnesium Sulfate 8 meq/Calcium Gluconate 15 meq/ Multivitamins 10 ml/Chromium/ Copper/Manganese/ Seleni/Zn 0.5 ml/ Total Parenteral Nutrition/Amino Acids/Dextrose/ Fat Emulsion Intravenous 1,400 ml @ 58.333 mls/ hr TPN CONT IV Last administered on 07/13/19at 22:16; Start 07/13/19 at 22:00; Stop 07/14/19 at 21:59; Status DC Potassium Chloride 20 meq/ Bicarbonate Dialysis Soln w/ out KCl 5,010 ml @ 1,000 mls/hr Q5H1M IV Last administered on 07/17/19at 14:54; Start 07/13/19 at 16:00; Stop 07/17/19 at 19:59; Status DC Multi-Ingred Cream/Lotion/Oil/ Oint (Artificial Tears Eye Ointment) 1 ramu PRN Q1HR PRN OU DRY EYE, 2nd choice Last administered on 08/01/19at 08:19; Start 07/13/19 at 17:30 Sodium Chloride 90 meq/Potassium Chloride 15 meq/ Potassium Phosphate 18 mmol/ Magnesium Sulfate 8 meq/Calcium Gluconate 15 meq/ Multivitamins 10 ml/Chromium/ Copper/Manganese/ Seleni/Zn 0.5 ml/ Total Parenteral Nutrition/Amino Acids/Dextrose/ Fat Emulsion Intravenous 1,400 ml @ 58.333 mls/ hr TPN CONT IV Last administered on 07/14/19at 22:00; Start 07/14/19 at 22:00; Stop 07/15/19 at 21:59; Status DC Albumin Human 500 ml @ 125 mls/hr 1X ONCE IV ; Start 07/14/19 at 14:15; Stop 07/14/19 at 18:14; Status DC Sodium Chloride 90 meq/Potassium Chloride 15 meq/ Potassium Phosphate 18 mmol/ Magnesium Sulfate 8 meq/Calcium Gluconate 15 meq/ Multivitamins 10 ml/Chromium/ Copper/Manganese/ Seleni/Zn 0.5 ml/ Insulin Human Regular 10 unit/ Total Parenteral Nutrition/Amino Acids/Dextrose/ Fat Emulsion Intravenous 1,400 ml @ 58.333 mls/ hr TPN CONT IV Last administered on 07/15/19at 21:43; Start 07/15/19 at 22:00; Stop 07/16/19 at 21:59; Status DC Lidocaine HCl (Buffered Lidocaine 1%) 3 ml STK-MED ONCE .ROUTE ; Start 07/13/19 at 10:00; Stop 07/15/19 at 13:57; Status DC Midazolam HCl 100 mg/Sodium Chloride 100 ml @ 7 mls/hr CONT PRN IV SEE PROTOCOL Last administered on 07/27/19at 15:35; Start 07/16/19 at 16:00 Sodium Chloride 90 meq/Potassium Chloride 15 meq/ Potassium Phosphate 18 mmol/ Magnesium Sulfate 8 meq/Calcium Gluconate 15 meq/ Multivitamins 10 ml/Chromium/ Copper/Manganese/ Seleni/Zn 0.5 ml/ Insulin Human Regular 15 unit/ Total Parenteral Nutrition/Amino Acids/Dextrose/ Fat Emulsion Intravenous 1,400 ml @ 58.333 mls/ hr TPN CONT IV Last administered on 07/16/19at 20:34; Start 07/16/19 at 22:00; Stop 07/17/19 at 21:59; Status DC Info (Icu Electrolyte Protocol) 1 ea CONT PRN PRN MC PER PROTOCOL; Start 07/17/19 at 13:15 Sodium Chloride 90 meq/Potassium Chloride 15 meq/ Potassium Phosphate 18 mmol/ Magnesium Sulfate 8 meq/Calcium Gluconate 15 meq/ Multivitamins 10 ml/Chromium/ Copper/Manganese/ Seleni/Zn 0.5 ml/ Insulin Human Regular 15 unit/ Total Parenteral Nutrition/Amino Acids/Dextrose/ Fat Emulsion Intravenous 1,400 ml @ 58.333 mls/ hr TPN CONT IV Last administered on 07/17/19at 22:05; Start 07/17/19 at 22:00; Stop 07/18/19 at 21:59; Status DC Potassium Chloride 15 meq/ Bicarbonate Dialysis Soln w/ out KCl 5,007.5 ml @ 1,000 mls/ hr Q5H1M IV Last administered on 07/20/19at 18:14; Start 07/17/19 at 20:00; Stop 07/21/19 at 13:08; Status DC Potassium Chloride 15 meq/ Bicarbonate Dialysis Soln w/ out KCl 5,007.5 ml @ 1,000 mls/ hr Q5H1M IV Last administered on 07/20/19at 18:14; Start 07/17/19 at 20:00; Stop 07/21/19 at 13:08; Status DC Potassium Chloride 15 meq/ Bicarbonate Dialysis Soln w/ out KCl 5,007.5 ml @ 1,000 mls/ hr Q5H1M IV Last administered on 07/20/19at 18:14; Start 07/17/19 at 20:00; Stop 07/21/19 at 13:08; Status DC Iohexol (Omnipaque 240 Mg/ml) 30 ml 1X ONCE PO Last administered on 07/18/19at 11:30; Start 07/18/19 at 11:30; Stop 07/18/19 at 11:33; Status DC Info (CONTRAST GIVEN -- Rx MONITORING) 1 each PRN DAILY PRN MC SEE COMMENTS; Start 07/18/19 at 11:45; Stop 07/20/19 at 11:44; Status DC Sodium Chloride 90 meq/Potassium Chloride 15 meq/ Potassium Phosphate 18 mmol/ Magnesium Sulfate 8 meq/Calcium Gluconate 15 meq/ Multivitamins 10 ml/Chromium/ Copper/Manganese/ Seleni/Zn 0.5 ml/ Insulin Human Regular 15 unit/ Total Parenteral Nutrition/Amino Acids/Dextrose/ Fat Emulsion Intravenous 1,400 ml @ 58.333 mls/ hr TPN CONT IV Last administered on 07/18/19at 21:47; Start 07/18/19 at 22:00; Stop 07/19/19 at 21:59; Status DC Sodium Chloride 90 meq/Potassium Chloride 15 meq/ Potassium Phosphate 18 mmol/ Magnesium Sulfate 8 meq/Calcium Gluconate 15 meq/ Multivitamins 10 ml/Chromium/ Copper/Manganese/ Seleni/Zn 0.5 ml/ Insulin Human Regular 20 unit/ Total Parenteral Nutrition/Amino Acids/Dextrose/ Fat Emulsion Intravenous 1,400 ml @ 58.333 mls/ hr TPN CONT IV Last administered on 07/19/19at 21:36; Start 07/19/19 at 22:00; Stop 07/20/19 at 21:59; Status DC Alteplase, Recombinant (Cathflo For Central Catheter Clearance) 1 mg 1X ONCE INT CAT Last administered on 07/19/19at 20:03; Start 07/19/19 at 19:30; Stop 07/19/19 at 19:46; Status DC Alteplase, Recombinant (Cathflo For Central Catheter Clearance) 1 mg 1X ONCE INT CAT Last administered on 07/19/19at 22:05; Start 07/19/19 at 22:00; Stop 07/19/19 at 22:01; Status DC Sodium Chloride 90 meq/Potassium Chloride 15 meq/ Potassium Phosphate 18 mmol/ Magnesium Sulfate 8 meq/Calcium Gluconate 15 meq/ Multivitamins 10 ml/Chromium/ Copper/Manganese/ Seleni/Zn 0.5 ml/ Insulin Human Regular 20 unit/ Total Parenteral Nutrition/Amino Acids/Dextrose/ Fat Emulsion Intravenous 1,400 ml @ 58.333 mls/ hr TPN CONT IV Last administered on 07/20/19at 21:30; Start 07/20/19 at 22:00; Stop 07/21/19 at 21:59; Status DC Dexmedetomidine HCl 400 mcg/ Sodium Chloride 100 ml @ 0 mls/hr CONT PRN IV ANXIETY / AGITATION Last administered on 08/06/19at 11:16; Start 07/21/19 at 08:15 Sodium Chloride 500 ml @ 500 mls/hr 1X PRN PRN IV ELEVATED BP, SEE COMMENTS; Start 07/21/19 at 08:15 Atropine Sulfate (ATROPINE 0.5mg SYRINGE) 0.5 mg PRN Q5MIN PRN IV SEE COMMENTS; Start 07/21/19 at 08:15 Furosemide (Lasix) 20 mg 1X ONCE IVP Last administered on 07/21/19at 08:19; Start 07/21/19 at 08:15; Stop 07/21/19 at 08:16; Status DC Lidocaine HCl (Buffered Lidocaine 1%) 3 ml STK-MED ONCE .ROUTE ; Start 07/21/19 at 08:39; Stop 07/21/19 at 08:39; Status DC Lidocaine HCl (Buffered Lidocaine 1%) 6 ml 1X ONCE INJ Last administered on 07/21/19at 09:05; Start 07/21/19 at 09:00; Stop 07/21/19 at 09:06; Status DC Sodium Chloride 90 meq/Potassium Chloride 15 meq/ Potassium Phosphate 18 mmol/ Magnesium Sulfate 8 meq/Calcium Gluconate 15 meq/ Multivitamins 10 ml/Chromium/ Copper/Manganese/ Seleni/Zn 0.5 ml/ Insulin Human Regular 20 unit/ Total Parenteral Nutrition/Amino Acids/Dextrose/ Fat Emulsion Intravenous 1,400 ml @ 58.333 mls/ hr TPN CONT IV Last administered on 07/21/19at 22:45; Start 07/21/19 at 22:00; Stop 07/22/19 at 21:59; Status DC Sodium Chloride 1,000 ml @ 1,000 mls/hr Q1H PRN IV hypotension; Start 07/22/19 at 07:30; Stop 07/22/19 at 13:29; Status DC Albumin Human 200 ml @ 200 mls/hr 1X PRN PRN IV Hypotension Last administered on 07/22/19at 09:36; Start 07/22/19 at 07:30; Stop 07/22/19 at 13:29; Status DC Sodium Chloride (Normal Saline Flush) 10 ml 1X PRN PRN IV AP catheter pack; Start 07/22/19 at 07:30; Stop 07/22/19 at 21:29; Status DC Sodium Chloride (Normal Saline Flush) 10 ml 1X PRN PRN IV SPEECH PATHOLOGY TEACHER catheter pack; Start 07/22/19 at 07:30; Stop 07/23/19 at 07:29; Status DC Sodium Chloride 1,000 ml @ 400 mls/hr Q2H30M PRN IV PATENCY; Start 07/22/19 at 07:30; Stop 07/22/19 at 19:29; Status DC Info (PHARMACY MONITORING -- do not chart) 1 each PRN DAILY PRN MC SEE COMMENTS; Start 07/22/19 at 07:30; Stop 07/22/19 at 13:02; Status DC Info (PHARMACY MONITORING -- do not chart) 1 each PRN DAILY PRN MC SEE COMMENTS; Start 07/22/19 at 07:30; Stop 07/24/19 at 12:45; Status DC Sodium Chloride 90 meq/Potassium Chloride 15 meq/ Potassium Phosphate 10 mmol/ Magnesium Sulfate 8 meq/Calcium Gluconate 15 meq/ Multivitamins 10 ml/Chromium/ Copper/Manganese/ Seleni/Zn 0.5 ml/ Insulin Human Regular 25 unit/ Total Parenteral Nutrition/Amino Acids/Dextrose/ Fat Emulsion Intravenous 1,400 ml @ 58.333 mls/ hr TPN CONT IV Last administered on 07/22/19at 22:19; Start 07/22/19 at 22:00; Stop 07/23/19 at 21:59; Status DC Heparin Sodium (Porcine) (Heparin Sodium) 5,000 unit Q12HR SQ Last administered on 08/05/19at 22:09; Start 07/22/19 at 21:00 Ondansetron HCl (Zofran) 4 mg PRN Q6HRS PRN IV NAUSEA/VOMITING; Start 07/25/19 at 07:00; Stop 07/26/19 at 06:59; Status DC Fentanyl Citrate (Fentanyl 2ml Vial) 25 mcg PRN Q5MIN PRN IV MILD PAIN 1-3; Start 07/25/19 at 07:00; Stop 07/26/19 at 06:59; Status DC Fentanyl Citrate (Fentanyl 2ml Vial) 50 mcg PRN Q5MIN PRN IV MODERATE TO SEVERE PAIN; Start 07/25/19 at 07:00; Stop 07/26/19 at 06:59; Status DC Ringer's Solution 1,000 ml @ 30 mls/hr Q24H IV ; Start 07/25/19 at 07:00; Stop 07/25/19 at 18:59; Status DC Lidocaine HCl (Xylocaine-Mpf 1% 2ml Vial) 2 ml PRN 1X PRN ID PRIOR TO IV START; Start 07/25/19 at 07:00; Stop 07/26/19 at 06:59; Status DC Prochlorperazine Edisylate (Compazine) 5 mg PACU PRN PRN IV NAUSEA, MRX1; Start 07/25/19 at 07:00; Stop 07/26/19 at 06:59; Status DC Sodium Chloride 1,000 ml @ 1,000 mls/hr Q1H PRN IV hypotension; Start 07/23/19 at 09:10; Stop 07/23/19 at 15:09; Status DC Albumin Human 200 ml @ 200 mls/hr 1X PRN PRN IV Hypotension Last administered on 07/23/19at 10:10; Start 07/23/19 at 09:15; Stop 07/23/19 at 15:14; Status DC Sodium Chloride 1,000 ml @ 400 mls/hr Q2H30M PRN IV PATENCY; Start 07/23/19 at 09:10; Stop 07/23/19 at 21:09; Status DC Info (PHARMACY MONITORING -- do not chart) 1 each PRN DAILY PRN MC SEE COMMENTS; Start 07/23/19 at 09:15; Stop 07/24/19 at 12:45; Status DC Info (PHARMACY MONITORING -- do not chart) 1 each PRN DAILY PRN MC SEE COMMENTS; Start 07/23/19 at 09:15; Stop 07/24/19 at 12:45; Status DC Sodium Chloride 90 meq/Potassium Chloride 15 meq/ Potassium Phosphate 10 mmol/ Magnesium Sulfate 8 meq/Calcium Gluconate 15 meq/ Multivitamins 10 ml/Chromium/ Copper/Manganese/ Seleni/Zn 0.5 ml/ Insulin Human Regular 25 unit/ Total Parenteral Nutrition/Amino Acids/Dextrose/ Fat Emulsion Intravenous 1,400 ml @ 58.333 mls/ hr TPN CONT IV Last administered on 07/23/19at 22:10; Start 07/23/19 at 22:00; Stop 07/24/19 at 21:59; Status DC Magnesium Sulfate 50 ml @ 25 mls/hr PRN DAILY PRN IV for Mag < 1.7 on am labs; Start 07/24/19 at 09:15 Sodium Chloride 90 meq/Potassium Chloride 15 meq/ Potassium Phosphate 10 mmol/ Magnesium Sulfate 8 meq/Calcium Gluconate 15 meq/ Multivitamins 10 ml/Chromium/ Copper/Manganese/ Seleni/Zn 0.5 ml/ Insulin Human Regular 25 unit/ Total Parenteral Nutrition/Amino Acids/Dextrose/ Fat Emulsion Intravenous 1,400 ml @ 58.333 mls/ hr TPN CONT IV Last administered on 07/24/19at 21:20; Start 07/24/19 at 22:00; Stop 07/25/19 at 21:59; Status DC Sodium Chloride 1,000 ml @ 1,000 mls/hr Q1H PRN IV hypotension; Start 07/24/19 at 12:23; Stop 07/24/19 at 18:22; Status DC Albumin Human 200 ml @ 200 mls/hr 1X ONCE IV Last administered on 07/24/19at 13:34; Start 07/24/19 at 12:30; Stop 07/24/19 at 13:29; Status DC Diphenhydramine HCl (Benadryl) 25 mg 1X PRN PRN IV ITCHING; Start 07/24/19 at 12:30; Stop 07/25/19 at 12:29; Status DC Diphenhydramine HCl (Benadryl) 25 mg 1X PRN PRN IV ITCHING; Start 07/24/19 at 12:30; Stop 07/25/19 at 12:29; Status DC Info (PHARMACY MONITORING -- do not chart) 1 each PRN DAILY PRN MC SEE COMMENTS ; Start 07/24/19 at 12:30; Status Cancel Bupivacaine HCl/ Epinephrine Bitart (Sensorcain-Epi 0.5%-1:[id number] Mpf) 30 ml STK-MED ONCE .ROUTE Last administered on 07/25/19at 11:44; Start 07/25/19 at 11:00; Stop 07/25/19 at 11:01; Status DC Cellulose (Surgicel Fibrillar 1x2) 1 each STK-MED ONCE .ROUTE ; Start 07/25/19 at 11:00; Stop 07/25/19 at 11:01; Status DC Sodium Chloride 90 meq/Potassium Chloride 15 meq/ Potassium Phosphate 10 mmol/ Magnesium Sulfate 12 meq/Calcium Gluconate 15 meq/ Multivitamins 10 ml/Chromium/ Copper/Manganese/ Seleni/Zn 0.5 ml/ Insulin Human Regular 25 unit/ Total Parenteral Nutrition/Amino Acids/Dextrose/ Fat Emulsion Intravenous 1,400 ml @ 58.333 mls/ hr TPN CONT IV Last administered on 07/25/19at 22:24; Start 07/25/19 at 22:00; Stop 07/26/19 at 21:59; Status DC Propofol 20 ml @ As Directed STK-MED ONCE IV ; Start 07/25/19 at 11:07; Stop 07/25/19 at 11:07; Status DC Cellulose (Surgicel Hemostat 4x8) 1 each STK-MED ONCE .ROUTE Last administered on 07/25/19at 11:44; Start 07/25/19 at 11:55; Stop 07/25/19 at 11:56; Status DC Sevoflurane (Ultane) 60 ml STK-MED ONCE IH ; Start 07/25/19 at 12:46; Stop 07/25/19 at 12:46; Status DC Sodium Chloride 1,000 ml @ 1,000 mls/hr Q1H PRN IV hypotension; Start 07/25/19 at 13:51; Stop 07/25/19 at 19:50; Status DC Albumin Human 200 ml @ 200 mls/hr 1X PRN PRN IV Hypotension Last administered on 07/25/19at 14:51; Start 07/25/19 at 14:00; Stop 07/25/19 at 19:59; Status DC Diphenhydramine HCl (Benadryl) 25 mg 1X PRN PRN IV ITCHING; Start 07/25/19 at 14:00; Stop 07/26/19 at 13:59; Status DC Diphenhydramine HCl (Benadryl) 25 mg 1X PRN PRN IV ITCHING; Start 07/25/19 at 14:00; Stop 07/26/19 at 13:59; Status DC Sodium Chloride 1,000 ml @ 400 mls/hr Q2H30M PRN IV PATENCY; Start 07/25/19 at 13:51; Stop 07/26/19 at 01:50; Status DC Info (PHARMACY MONITORING -- do not chart) 1 each PRN DAILY PRN MC SEE COMMENTS; Start 07/25/19 at 14:00; Stop 07/28/19 at 08:16; Status DC Heparin Sodium (Porcine) (Hep Lock Adult) 500 unit STK-MED ONCE IVP ; Start 07/26/19 at 09:29; Stop 07/26/19 at 09:30; Status DC Sodium Chloride 1,000 ml @ 1,000 mls/hr Q1H PRN IV hypotension; Start 07/26/19 at 10:43; Stop 07/26/19 at 16:42; Status DC Sodium Chloride 1,000 ml @ 400 mls/hr Q2H30M PRN IV PATENCY; Start 07/26/19 at 10:43; Stop 07/26/19 at 22:42; Status DC Info (PHARMACY MONITORING -- do not chart) 1 each PRN DAILY PRN MC SEE COMMENTS; Start 07/26/19 at 10:45; Status UNV Info (PHARMACY MONITORING -- do not chart) 1 each PRN DAILY PRN MC SEE COMMENTS; Start 07/26/19 at 10:45; Status UNV Sodium Chloride 90 meq/Potassium Chloride 15 meq/ Magnesium Sulfate 12 meq/Calcium Gluconate 15 meq/ Multivitamins 10 ml/Chromium/ Copper/Manganese/ Seleni/Zn 0.5 ml/ Insulin Human Regular 25 unit/ Total Parenteral Nutrition/Amino Acids/Dextrose/ Fat Emulsion Intravenous 1,400 ml @ 58.333 mls/ hr TPN CONT IV Last administered on 07/26/19at 22:13; Start 07/26/19 at 22:00; Stop 07/27/19 at 21:59; Status DC Sodium Chloride 1,000 ml @ 1,000 mls/hr Q1H PRN IV hypotension; Start 07/27/19 at 07:50; Stop 07/27/19 at 13:49; Status DC Albumin Human 200 ml @ 200 mls/hr 1X ONCE IV ; Start 07/27/19 at 08:00; Stop 07/27/19 at 08:53; Status DC Diphenhydramine HCl (Benadryl) 25 mg 1X PRN PRN IV ITCHING; Start 07/27/19 at 08:00; Stop 07/28/19 at 07:59; Status DC Diphenhydramine HCl (Benadryl) 25 mg 1X PRN PRN IV ITCHING; Start 07/27/19 at 08:00; Stop 07/28/19 at 07:59; Status DC Info (PHARMACY MONITORING -- do not chart) 1 each PRN DAILY PRN MC SEE COMMENTS; Start 07/27/19 at 08:00; Stop 07/28/19 at 08:16; Status DC Albumin Human 50 ml @ 50 mls/hr 1X ONCE IV ; Start 07/27/19 at 08:53; Stop 07/27/19 at 08:56; Status DC Albumin Human 200 ml @ 50 mls/hr PRN 1X PRN IV HYPOTENSION Last administered on 08/02/19at 11:54; Start 07/27/19 at 09:00 Meropenem 500 mg/ Sodium Chloride 50 ml @ 100 mls/hr Q12H IV Last administered on 08/05/19at 22:09; Start 07/27/19 at 10:00 Sodium Chloride 90 meq/Magnesium Sulfate 12 meq/ Calcium Gluconate 15 meq/ Multivitamins 10 ml/Chromium/ Copper/Manganese/ Seleni/Zn 0.5 ml/ Insulin Human Regular 25 unit/ Total Parenteral Nutrition/Amino Acids/Dextrose/ Fat Emulsion Intravenous 1,400 ml @ 58.333 mls/ hr TPN CONT IV Last administered on 07/27/19at 21:41; Start 07/27/19 at 22:00; Stop 07/28/19 at 21:59; Status DC Sodium Chloride 1,000 ml @ 1,000 mls/hr Q1H PRN IV hypotension; Start 07/28/19 at 07:58; Stop 07/28/19 at 13:57; Status DC Albumin Human 200 ml @ 200 mls/hr 1X PRN PRN IV Hypotension Last administered on 07/28/19at 09:30; Start 07/28/19 at 08:00; Stop 07/28/19 at 13:59; Status DC Sodium Chloride 1,000 ml @ 400 mls/hr Q2H30M PRN IV PATENCY; Start 07/28/19 at 07:58; Stop 07/28/19 at 19:57; Status DC Info (PHARMACY MONITORING -- do not chart) 1 each PRN DAILY PRN MC SEE COMMENTS; Start 07/28/19 at 08:00; Status Cancel Info (PHARMACY MONITORING -- do not chart) 1 each PRN DAILY PRN MC SEE COMMENTS; Start 07/28/19 at 08:15; Status UNV Sodium Chloride 90 meq/Potassium Phosphate 5 mmol/ Magnesium Sulfate 12 meq/Calcium Gluconate 15 meq/ Multivitamins 10 ml/Chromium/ Copper/Manganese/ Seleni/Zn 0.5 ml/ Insulin Human Regular 30 unit/ Total Parenteral Nutrition/Amino Acids/Dextrose/ Fat Emulsion Intravenous 1,400 ml @ 58.333 mls/ hr TPN CONT IV Last administered on 07/28/19at 22:08; Start 07/28/19 at 22:00; Stop 07/29/19 at 21:59; Status DC Linezolid/Dextrose 300 ml @ 300 mls/hr Q12HR IV Last administered on 08/05/19at 20:46; Start 07/29/19 at 11:00 Sodium Chloride 90 meq/Potassium Phosphate 15 mmol/ Magnesium Sulfate 12 meq/Calcium Gluconate 15 meq/ Multivitamins 10 ml/Chromium/ Copper/Manganese/ Seleni/Zn 0.5 ml/ Insulin Human Regular 30 unit/ Total Parenteral Nutrition/Amino Acids/Dextrose/ Fat Emulsion Intravenous 1,400 ml @ 58.333 mls/ hr TPN CONT IV Last administered on 07/29/19at 21:49; Start 07/29/19 at 22:00; Stop 07/30/19 at 21:59; Status DC Sodium Chloride 90 meq/Potassium Phosphate 15 mmol/ Magnesium Sulfate 12 meq/Calcium Gluconate 15 meq/ Multivitamins 10 ml/Chromium/ Copper/Manganese/ Seleni/Zn 0.5 ml/ Insulin Human Regular 40 unit/ Total Parenteral Nutrition/Amino Acids/Dextrose/ Fat Emulsion Intravenous 1,400 ml @ 58.333 mls/ hr TPN CONT IV Last administered on 07/30/19at 21:21; Start 07/30/19 at 22:00; Stop 07/31/19 at 21:59; Status DC Sodium Chloride 1,000 ml @ 1,000 mls/hr Q1H PRN IV hypotension; Start 07/30/19 at 13:26; Stop 07/30/19 at 19:25; Status DC Albumin Human 200 ml @ 200 mls/hr 1X PRN PRN IV Hypotension Last administered on 07/30/19at 15:00; Start 07/30/19 at 13:30; Stop 07/30/19 at 19:29; Status DC Sodium Chloride (Normal Saline Flush) 10 ml 1X PRN PRN IV AP catheter pack; Start 07/30/19 at 13:30; Stop 07/31/19 at 13:29; Status DC Sodium Chloride (Normal Saline Flush) 10 ml 1X PRN PRN IV SPEECH PATHOLOGY TEACHER catheter 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; Start 07/30/19 at 13:30; Stop 07/31/19 at 13:29; Status DC Sodium Chloride 1,000 ml @ 400 mls/hr Q2H30M PRN IV PATENCY; Start 07/30/19 at 13:26; Stop 07/31/19 at 01:25; Status DC Info (PHARMACY MONITORING -- do not chart) 1 each PRN DAILY PRN MC SEE COMMENTS; Start 07/30/19 at 13:30; Stop 07/30/19 at 13:33; Status DC Info (PHARMACY MONITORING -- do not chart) 1 each PRN DAILY PRN MC SEE COMMENTS; Start 07/30/19 at 13:30; Stop 07/30/19 at 13:34; Status DC Sodium Chloride 90 meq/Potassium Phosphate 19 mmol/ Magnesium Sulfate 12 meq/Calcium Gluconate 15 meq/ Multivitamins 10 ml/Chromium/ Copper/Manganese/ Seleni/Zn 0.5 ml/ Insulin Human Regular 40 unit/ Total Parenteral Nutrition/Amino Acids/Dextrose/ Fat Emulsion Intravenous 1,400 ml @ 58.333 mls/ hr TPN CONT IV Last administered on 07/31/19at 21:54; Start 07/31/19 at 22:00; Stop 08/01/19 at 21:59; Status DC Sodium Chloride 1,000 ml @ 1,000 mls/hr Q1H PRN IV hypotension; Start 08/01/19 at 09:35; Stop 08/01/19 at 15:34; Status DC Albumin Human 200 ml @ 200 mls/hr 1X PRN PRN IV Hypotension; Start 08/01/19 at 09:45; Stop 08/01/19 at 15:44; Status DC Diphenhydramine HCl (Benadryl) 25 mg 1X PRN PRN IV ITCHING; Start 08/01/19 at 09:45; Stop 08/02/19 at 09:44; Status DC Diphenhydramine HCl (Benadryl) 25 mg 1X PRN PRN IV ITCHING; Start 08/01/19 at 09:45; Stop 08/02/19 at 09:44; Status DC Sodium Chloride 1,000 ml @ 400 mls/hr Q2H30M PRN IV PATENCY; Start 08/01/19 at 09:35; Stop 08/01/19 at 21:34; Status DC Info (PHARMACY MONITORING -- do not chart) 1 each PRN DAILY PRN MC SEE COMMENTS; Start 08/01/19 at 09:45; Status Cancel Sodium Chloride 100 meq/Potassium Phosphate 19 mmol/ Magnesium Sulfate 12 meq/Calcium Gluconate 15 meq/ Multivitamins 10 ml/Chromium/ Copper/Manganese/ Seleni/Zn 0.5 ml/ Insulin Human Regular 40 unit/ Potassium Chloride 20 meq/ Total Parenteral Nutrition/Amino Acids/Dextrose/ Fat Emulsion Intravenous 1,400 ml @ 58.333 mls/ hr TPN CONT IV Last administered on 08/01/19at 22:02; Start 08/01/19 at 22:00; Stop 08/02/19 at 21:59; Status DC Furosemide (Lasix) 40 mg 1X ONCE IVP Last administered on 08/01/19at 14:39; Start 08/01/19 at 14:30; Stop 08/01/19 at 14:31; Status DC Metronidazole 100 ml @ 100 mls/hr Q8HRS IV Last administered on 08/06/19at 06:21; Start 08/02/19 at 10:00 Sodium Chloride 1,000 ml @ 1,000 mls/hr Q1H PRN IV hypotension; Start 08/02/19 at 08:00; Stop 08/02/19 at 13:59; Status DC Albumin Human 200 ml @ 200 mls/hr 1X PRN PRN IV Hypotension; Start 08/02/19 at 08:00; Stop 08/02/19 at 13:59; Status DC Sodium Chloride 1,000 ml @ 400 mls/hr Q2H30M PRN IV PATENCY; Start 08/02/19 at 08:00; Stop 08/02/19 at 19:59; Status DC Info (PHARMACY MONITORING -- do not chart) 1 each PRN DAILY PRN MC SEE COMMENTS; Start 08/02/19 at 11:30; Status UNV Info (PHARMACY MONITORING -- do not chart) 1 each PRN DAILY PRN MC SEE COMMENTS; Start 08/02/19 at 11:30; Stop 08/04/19 at 12:13; Status DC Sodium Chloride 100 meq/Potassium Phosphate 19 mmol/ Magnesium Sulfate 12 meq/Calcium Gluconate 15 meq/ Multivitamins 10 ml/Chromium/ Copper/Manganese/ Seleni/Zn 0.5 ml/ Insulin Human Regular 40 unit/ Potassium Chloride 20 meq/ Total Parenteral Nutrition/Amino Acids/Dextrose/ Fat Emulsion Intravenous 1,400 ml @ 58.333 mls/ hr TPN CONT IV Last administered on 08/02/19at 21:52; Start 08/02/19 at 22:00; Stop 08/03/19 at 21:59; Status DC Sodium Chloride (Normal Saline Flush) 10 ml QSHIFT PRN IV AFTER MEDS AND BLOOD DRAWS; Start 08/02/19 at 15:00 Sodium Chloride (Normal Saline Flush) 10 ml PRN Q5MIN PRN IV AFTER MEDS AND BLOOD DRAWS; Start 08/02/19 at 15:00 Sodium Chloride (Normal Saline Flush) 20 ml PRN Q5MIN PRN IV AFTER MEDS AND BLOOD DRAWS; Start 08/02/19 at 15:00 Sodium Chloride 100 meq/Potassium Phosphate 19 mmol/ Magnesium Sulfate 12 meq/Calcium Gluconate 15 meq/ Multivitamins 10 ml/Chromium/ Copper/Manganese/ Seleni/Zn 0.5 ml/ Insulin Human Regular 40 unit/ Potassium Chloride 20 meq/ Total Parenteral Nutrition/Amino Acids/Dextrose/ Fat Emulsion Intravenous 1,400 ml @ 58.333 mls/ hr TPN CONT IV Last administered on 08/03/19at 21:20; Start 08/03/19 at 22:00; Stop 08/04/19 at 21:59; Status DC Lidocaine HCl (Buffered Lidocaine 1%) 3 ml STK-MED ONCE .ROUTE ; Start 08/03/19 at 13:16; Stop 08/03/19 at 13:16; Status DC Lidocaine HCl (Buffered Lidocaine 1%) 6 ml 1X ONCE INJ Last administered on 08/03/19at 13:45; Start 08/03/19 at 13:30; Stop 08/03/19 at 13:31; Status DC Albumin Human 100 ml @ 100 mls/hr 1X ONCE IV Last administered on 08/03/19at 15:41; Start 08/03/19 at 15:00; Stop 08/03/19 at 15:59; Status DC Albumin Human 50 ml @ 50 mls/hr 1X ONCE IV Last administered on 08/03/19at 15:00; Start 08/03/19 at 15:00; Stop 08/03/19 at 15:59; Status DC Info (PHARMACY MONITORING -- do not chart) 1 each PRN DAILY PRN MC SEE COMMENTS; Start 08/04/19 at 11:30; Status Cancel Info (PHARMACY MONITORING -- do not chart) 1 each PRN DAILY PRN MC SEE COMMENTS; Start 08/04/19 at 11:30; Status UNV Sodium Chloride 100 meq/Potassium Phosphate 10 mmol/ Magnesium Sulfate 12 meq/Calcium Gluconate 15 meq/ Multivitamins 10 ml/Chromium/ Copper/Manganese/ Seleni/Zn 0.5 ml/ Insulin Human Regular 35 unit/ Potassium Chloride 20 meq/ Total Parenteral Nutrition/Amino Acids/Dextrose/ Fat Emulsion Intravenous 1,400 ml @ 58.333 mls/ hr TPN CONT IV Last administered on 08/04/19at 22:10; Start 08/04/19 at 22:00; Stop 08/05/19 at 21:59; Status DC Sodium Chloride 100 meq/Potassium Phosphate 5 mmol/ Magnesium Sulfate 12 meq/Calcium Gluconate 15 meq/ Multivitamins 10 ml/Chromium/ Copper/Manganese/ Seleni/Zn 0.5 ml/ Insulin Human Regular 35 unit/ Potassium Chloride 20 meq/ Total Parenteral Nutrition/Amino Acids/Dextrose/ Fat Emulsion Intravenous 1,400 ml @ 58.333 mls/ hr TPN CONT IV Last administered on 08/05/19at 22:59; Start 08/05/19 at 22:00; Stop 08/06/19 at 21:59 Sodium Chloride 1,000 ml @ 1,000 mls/hr Q1H PRN IV hypotension; Start 08/06/19 at 08:27; Stop 08/06/19 at 14:26 Albumin Human 200 ml @ 200 mls/hr 1X PRN PRN IV Hypotension Last administered on 08/06/19at 09:18; Start 08/06/19 at 08:30; Stop 08/06/19 at 14:29 Sodium Chloride 1,000 ml @ 400 mls/hr Q2H30M PRN IV PATENCY; Start 08/06/19 at 08:27; Stop 08/06/19 at 20:26 Info (PHARMACY MONITORING -- do not chart) 1 each PRN DAILY PRN MC SEE COMMENT S; Start 08/06/19 at 08:30; Status Cancel Info (PHARMACY MONITORING -- do not chart) 1 each PRN DAILY PRN MC SEE COMMENTS; Start 08/06/19 at 08:30 Sodium Chloride 100 meq/Potassium Chloride 40 meq/ Magnesium Sulfate 15 meq/Calcium Gluconate 15 meq/ Multivitamins 10 ml/Chromium/ Copper/Manganese/ Seleni/Zn 0.5 ml/ Insulin Human Regular 35 unit/ Total Parenteral Nutrition/Amino Acids/Dextrose/ Fat Emulsion Intravenous 1,400 ml @ 58.333 mls/ hr TPN CONT IV ; Start 08/06/19 at 22:00; Stop 08/07/19 at 21:59 Active Scripts Active Reported Bisoprolol Fumarate 5 Mg Tablet 10 Mg PO DAILY Vitals/I & O Vital Sign - Last 24 Hours 08/05/19 08/05/19 08/05/19 08/05/19 14:00 15:00 15:41 16:00 Temp 99.2 99.2 Pulse 120 108 126 Resp 32 27 39 B/P (MAP) 158/101 (120) 185/102 (129) 200/109 (139) Pulse Ox 99 99 100 100 O2 Delivery C-pap trial C-pap trial Ventilator C-pap trial 08/05/19 08/05/19 08/05/19 08/05/19 16:00 17:00 18:00 18:40 Pulse 108 110 Resp 27 32 B/P (MAP) 159/84 (109) 175/106 (129) Pulse Ox 99 99 100 O2 Delivery Mechanical Ventilator C-pap trial C-pap trial Ventilator 08/05/19 08/05/19 08/05/19 08/05/19 19:00 20:00 20:00 20:10 Temp 99.8 99.8 Pulse 92 117 Resp 18 24 B/P (MAP) 162/92 (115) 194/108 (136) Pulse Ox 100 100 100 O2 Delivery Ventilator Mechanical Ventilator Ventilator Ventilator 08/05/19 08/05/19 08/05/19 08/05/19 20:50 21:00 22:00 23:00 Pulse 128 111 91 Resp 30 20 19 B/P (MAP) 181/91 (121) 173/92 (119) 139/65 (89) Pulse Ox 100 100 100 100 O2 Delivery Ventilator Ventilator Ventilator 08/06/19 08/06/19 08/06/19 08/06/19 00:00 00:00 00:30 01:00 Temp 98.9 98.9 Pulse 82 86 Resp 20 18 B/P (MAP) 130/63 (85) 133/69 (90) Pulse Ox 100 100 100 O2 Delivery Ventilator Mechanical Ventilator Ventilator Ventilator 08/06/19 08/06/19 08/06/19 08/06/19 02:00 03:00 04:00 04:00 Temp 99.5 99.5 Pulse 114 105 102 Resp 18 28 28 B/P (MAP) 144/81 (102) 153/91 (111) 160/81 (107) Pulse Ox 100 100 100 O2 Delivery Ventilator Ventilator Ventilator Mechanical Ventilator 08/06/19 08/06/19 08/06/19 08/06/19 04:15 05:00 06:00 07:00 Pulse 88 90 86 Resp 18 19 B/P (MAP) 170/96 (120) 136/71 (92) 133/69 (90) Pulse Ox 100 100 100 100 O2 Delivery Ventilator Ventilator Ventilator Ventilator 08/06/19 08/06/19 08/06/19 08/06/19 08:00 08:00 08:02 09:00 Pulse 100 154 Resp 25 26 B/P (MAP) 143/76 (98) 171/80 (110) Pulse Ox 100 100 100 O2 Delivery Mechanical Ventilator Ventilator Ventilator Ventilator 08/06/19 08/06/19 08/06/19 08/06/19 10:00 11:00 11:18 12:00 Temp 99.4 99.4 Pulse 166 146 97 Resp 30 24 20 B/P (MAP) 185/98 (127) 167/80 (109) 117/78 (91) Pulse Ox 100 100 99 100 O2 Delivery Ventilator Ventilator Trilogy Ventilator Intake and Output 08/05/19 08/05/19 08/06/19 15:00 23:00 07:00 Intake Total 450 ml 2344.2 ml 1313.96 ml Output Total 470 ml 1250 ml 885 ml Balance -20 ml 1094.2 ml 428.96 ml Hemodynamically unstable?: No Is patient in severe pain?: No Is NPO status required?: Yes MARY HILL MD Aug 06, 2019 13:53
[2019-08-06] MEDS: PANTOPRAZOLE IV PUSH 40 MG VIAL. IVP SCH (14:08)
[2019-08-06] MEDS: PROCHLORPERAZINE 10 MG/2 ML VIAL. IV PRN (14:08)
[2019-08-06] MEDS: HEPARIN for SUB-Q USE 5,000 UNIT/ML VIAL. SQ SCH ×2 (14:09→21:23)
[2019-08-06] MEDS: MEROPENEM 500 MG in IV NORMAL SALINE 50ML 50 ML IV SCH ×2 (14:23→21:58)
--- NOTE | 2019-08-06 14:23 | PDOC ---
Infectious Disease Note Subjective Subjective Mild nausea and some discomfort Remains on vent via trach, FiO2 35 % PEEP 5 SpO2 100% TPN No fevers last 24 hours Vital Sign Vital Signs Vital Signs Date Time Temp Pulse Resp B/P (MAP) Pulse Ox O2 Delivery O2 Flow Rate FiO2 08/06/19 13:51 98 Trilogy 08/06/19 12:00 99.4 97 20 117/78 (91) 99.4 Physical Exam PHYSICAL EXAM GENERAL: Propped up in bed, resting quietly, arouses to voice HEENT: Pupils equal, + NGT, oral cavity dry NECK: Trach/vent LUNGS: Diminished aeration HEART: S1, S2, regular ABDOMEN: Less distended, tender, hypoactive BS, : Lind changed 08/01 EXTREMITIES: Generalized edema, no cyanosis, SCDs bilaterally DERMATOLOGIC: Warm and dry. No generalized rash. CENTRAL NERVOUS SYSTEM: Nods appropriately to few questions, HDC & LIJ (08/01) clean Labs Lab Laboratory Tests Test 08/05/19 17:06 08/06/19 06:10 08/06/19 07:17 Glucose (Fingerstick) 146 mg/dL (70-99) 137 mg/dL (70-99) White Blood Count 6.3 x10^3/uL (4.0-11.0) Red Blood Count 2.23 x10^6/uL (3.50-5.40) Hemoglobin 7.1 g/dL (12.0-15.5) Hematocrit 21.1 % (36.0-47.0) Mean Corpuscular Volume 95 fL (79-100) Mean Corpuscular Hemoglobin 32 pg (25-35) Mean Corpuscular Hemoglobin Concent 33 g/dL (31-37) Red Cell Distribution Width 18.1 % (11.5-14.5) Platelet Count 539 x10^3/uL (140-400) Neutrophils (%) (Auto) 74 % (31-73) Lymphocytes (%) (Auto) 12 % (24-48) Monocytes (%) (Auto) 14 % (0-9) Eosinophils (%) (Auto) 0 % (0-3) Basophils (%) (Auto) 0 % (0-3) Neutrophils # (Auto) 4.7 x10^3/uL (1.8-7.7) Lymphocytes # (Auto) 0.7 x10^3/uL (1.0-4.8) Monocytes # (Auto) 0.9 x10^3/uL (0.0-1.1) Eosinophils # (Auto) 0.0 x10^3/uL (0.0-0.7) Basophils # (Auto) 0.0 x10^3/uL (0.0-0.2) Sodium Level 141 mmol/L (136-145) Potassium Level 3.3 mmol/L (3.5-5.1) Chloride Level 103 mmol/L (98-107) Carbon Dioxide Level 25 mmol/L (21-32) Anion Gap 13 (6-14) Blood Urea Nitrogen 92 mg/dL (7-20) Creatinine 1.9 mg/dL (0.6-1.0) Estimated GFR (Cockcroft-Gault) 28.1 BUN/Creatinine Ratio 48 (6-20) Glucose Level 152 mg/dL (70-99) Calcium Level 8.6 mg/dL (8.5-10.1) Phosphorus Level 5.2 mg/dL (2.6-4.7) Magnesium Level 1.7 mg/dL (1.8-2.4) Total Bilirubin 0.4 mg/dL (0.2-1.0) Aspartate Amino Transf (AST/SGOT) 23 U/L (15-37) Alanine Aminotransferase (ALT/SGPT) 11 U/L (14-59) Alkaline Phosphatase 49 U/L (46-116) Total Protein 5.1 g/dL (6.4-8.2) Albumin 2.6 g/dL (3.4-5.0) Albumin/Globulin Ratio 1.0 (1.0-1.7) Objective Assessment Leukocytosis 07/28 -improved Fever - - better - ? pancreatitis. blood cults 07/28 neg.Urine - neg, New L IJ/Lind and PICC removed 08/01 S/p Paracentesis 08/02 - 4300 ml Severe acute gallstone pancreatitis with necrosis -CT 08/01 necrotizing pancreatitis with fluid and phlegmon at the pancreas Ascites Hypotension off levaphed Joseph Pleural effusions JUANA requiring HD - s/p RIJ temporary dialysis catheter replacement, 07/20 Vent dependent respiratory failure -s/p Trach placement -lung opacities, COVID-19 neg Anasarca - worse Anemia - S/p PRBC 07/13 Hypocalcemia Prediabetes HTN Diarrhea, C. diff neg 07/10 Anemia - S/p PRBCs Plan Plan of Care didnt tolerate tube clamping Blood cults 08/01 neg to date cont merrem (07/26) and Zyvox (07/28),micafungin, Flagyl 08/01 -previously on cefepime, flagyl & dapto Gen surgery following Maintain aspiration precautions Anemia deferred to primary Critically ill D/w nursing post HD and mild Nausea. trouble with tube clamping D/w nursing Attending Co-Sign Attending Co-Sign The patient was seen and interviewed as well as examined at the bedside. The chart was reviewed. The case was discussed. Agree with the plan of care. FRANCA HOBSON SURFACE LAY OUT TECHNICIAN Aug 06, 2019 14:22 WILLY BARAKAT MD Aug 06, 2019 15:10
[2019-08-06] MEDS: MICAFUNGIN 100 MG in IV DEXTROSE 5% 100ML 100 ML IV SCH (14:39)
[2019-08-06] MEDS ORDERED: POTASSIUM CHLORIDE 20MEQ 100 ML IV ONE (14:45)
[2019-08-06] MEDS ORDERED: TOTAL PARENTERAL NUTRITION IV SCH ×10 (22:00)
[2019-08-06] MEDS ORDERED: AMINO ACID IV SCH ×10 (22:00)
[2019-08-06] MEDS ORDERED: [UNRECOGNIZED DRUG - OTHER] IV SCH ×10 (22:00)
[2019-08-06] MEDS ORDERED: DEXTROSE 70% IV SCH ×10 (22:00)
[2019-08-07] VITALS (24 sets, daily range): BP systolic 107–154; BP diastolic 61–94
[2019-08-07] MEDS: DEXMEDETOMIDINE 400 MCG in IV NORMAL SALINE 100ML 96 ML IV PRN ×9 (01:00→22:58)
[2019-08-07] MEDS: INSULIN LISPRO 300 UNITS/3 ML VIAL. SQ SCH ×4 (06:00→18:00)
--- NOTE | 2019-08-07 06:06 | PDOC ---
PULMONARY PROGRESS NOTES Subjective Patient intubated on 07/10 , s/p trach /, on AC mode, follows some commands, on precedex. small trach secretion, not much weaning yesterday, had HD and was febrile S/P paracentisis with 4 liters removed on 08/03/19 Vitals Vital Signs Date Time Temp Pulse Resp B/P (MAP) Pulse Ox O2 Delivery O2 Flow Rate FiO2 08/07/19 05:27 100 Ventilator 08/06/19 23:00 96 33 139/74 (95) 08/06/19 20:00 100.5 100.5 Comments ros unable to obtain on vent Lungs: Other (dimished in BLL nc at perrl nose clear neck trach site ok no lad no thyromegaly) Cardiovascular: S1, S2 Abdomen: Soft, Non-tender, Other (distended) Extremities: Other (+3 generalized edema ) Skin: Warm, Dry Labs Laboratory Tests Test 08/05/19 06:00 08/05/19 06:06 08/05/19 07:00 08/05/19 08:00 Sodium Level 140 mmol/L (136-145) Potassium Level 3.7 mmol/L (3.5-5.1) Chloride Level 103 mmol/L (98-107) Carbon Dioxide Level 26 mmol/L (21-32) Anion Gap 11 (6-14) Blood Urea Nitrogen 80 mg/dL (7-20) Creatinine 1.6 mg/dL (0.6-1.0) Estimated GFR (Cockcroft-Gault) 34.3 BUN/Creatinine Ratio 50 (6-20) Glucose Level 130 mg/dL (70-99) Calcium Level 8.4 mg/dL (8.5-10.1) Phosphorus Level 5.2 mg/dL (2.6-4.7) Total Bilirubin 0.4 mg/dL (0.2-1.0) Aspartate Amino Transf (AST/SGOT) 23 U/L (15-37) Alanine Aminotransferase (ALT/SGPT) 12 U/L (14-59) Alkaline Phosphatase 52 U/L (46-116) Total Protein 4.9 g/dL (6.4-8.2) Albumin 2.6 g/dL (3.4-5.0) Albumin/Globulin Ratio 1.1 (1.0-1.7) Glucose (Fingerstick) 129 mg/dL (70-99) White Blood Count 5.8 x10^3/uL (4.0-11.0) Red Blood Count 2.40 x10^6/uL (3.50-5.40) Hemoglobin 7.6 g/dL (12.0-15.5) Hematocrit 22.8 % (36.0-47.0) Mean Corpuscular Volume 95 fL (79-100) Mean Corpuscular Hemoglobin 32 pg (25-35) Mean Corpuscular Hemoglobin Concent 33 g/dL (31-37) Red Cell Distribution Width 18.4 % (11.5-14.5) Platelet Count 498 x10^3/uL (140-400) Neutrophils (%) (Auto) 67 % (31-73) Lymphocytes (%) (Auto) 17 % (24-48) Monocytes (%) (Auto) 14 % (0-9) Eosinophils (%) (Auto) 1 % (0-3) Basophils (%) (Auto) 1 % (0-3) Neutrophils # (Auto) 3.9 x10^3/uL (1.8-7.7) Lymphocytes # (Auto) 1.0 x10^3/uL (1.0-4.8) Monocytes # (Auto) 0.8 x10^3/uL (0.0-1.1) Eosinophils # (Auto) 0.0 x10^3/uL (0.0-0.7) Basophils # (Auto) 0.0 x10^3/uL (0.0-0.2) O2 Saturation 98 % (92-99) Arterial Blood pH 7.47 (7.35-7.45) Arterial Blood pCO2 at Patient Temp 33 mmHg (35-46) Arterial Blood pO2 at Patient Temp 136 mmHg (75-108) Arterial Blood HCO3 24 mmol/L (21-28) Arterial Blood Base Excess 0 mmol/L (-3-3) FiO2 35 Test 08/05/19 13:08 08/05/19 17:06 08/06/19 06:10 08/06/19 07:17 Glucose (Fingerstick) 181 mg/dL (70-99) 146 mg/dL (70-99) 137 mg/dL (70-99) White Blood Count 6.3 x10^3/uL (4.0-11.0) Red Blood Count 2.23 x10^6/uL (3.50-5.40) Hemoglobin 7.1 g/dL (12.0-15.5) Hematocrit 21.1 % (36.0-47.0) Mean Corpuscular Volume 95 fL (79-100) Mean Corpuscular Hemoglobin 32 pg (25-35) Mean Corpuscular Hemoglobin Concent 33 g/dL (31-37) Red Cell Distribution Width 18.1 % (11.5-14.5) Platelet Count 539 x10^3/uL (140-400) Neutrophils (%) (Auto) 74 % (31-73) Lymphocytes (%) (Auto) 12 % (24-48) Monocytes (%) (Auto) 14 % (0-9) Eosinophils (%) (Auto) 0 % (0-3) Basophils (%) (Auto) 0 % (0-3) Neutrophils # (Auto) 4.7 x10^3/uL (1.8-7.7) Lymphocytes # (Auto) 0.7 x10^3/uL (1.0-4.8) Monocytes # (Auto) 0.9 x10^3/uL (0.0-1.1) Eosinophils # (Auto) 0.0 x10^3/uL (0.0-0.7) Basophils # (Auto) 0.0 x10^3/uL (0.0-0.2) Sodium Level 141 mmol/L (136-145) Potassium Level 3.3 mmol/L (3.5-5.1) Chloride Level 103 mmol/L (98-107) Carbon Dioxide Level 25 mmol/L (21-32) Anion Gap 13 (6-14) Blood Urea Nitrogen 92 mg/dL (7-20) Creatinine 1.9 mg/dL (0.6-1.0) Estimated GFR (Cockcroft-Gault) 28.1 BUN/Creatinine Ratio 48 (6-20) Glucose Level 152 mg/dL (70-99) Calcium Level 8.6 mg/dL (8.5-10.1) Phosphorus Level 5.2 mg/dL (2.6-4.7) Magnesium Level 1.7 mg/dL (1.8-2.4) Total Bilirubin 0.4 mg/dL (0.2-1.0) Aspartate Amino Transf (AST/SGOT) 23 U/L (15-37) Alanine Aminotransferase (ALT/SGPT) 11 U/L (14-59) Alkaline Phosphatase 49 U/L (46-116) Total Protein 5.1 g/dL (6.4-8.2) Albumin 2.6 g/dL (3.4-5.0) Albumin/Globulin Ratio 1.0 (1.0-1.7) Test 08/06/19 14:41 08/06/19 18:13 08/07/19 00:57 Glucose (Fingerstick) 134 mg/dL (70-99) 135 mg/dL (70-99) 147 mg/dL (70-99) Laboratory Tests Test 08/06/19 06:10 08/06/19 07:17 08/06/19 14:41 08/06/19 18:13 White Blood Count 6.3 x10^3/uL (4.0-11.0) Red Blood Count 2.23 x10^6/uL (3.50-5.40) Hemoglobin 7.1 g/dL (12.0-15.5) Hematocrit 21.1 % (36.0-47.0) Mean Corpuscular Volume 95 fL (79-100) Mean Corpuscular Hemoglobin 32 pg (25-35) Mean Corpuscular Hemoglobin Concent 33 g/dL (31-37) Red Cell Distribution Width 18.1 % (11.5-14.5) Platelet Count 539 x10^3/uL (140-400) Neutrophils (%) (Auto) 74 % (31-73) Lymphocytes (%) (Auto) 12 % (24-48) Monocytes (%) (Auto) 14 % (0-9) Eosinophils (%) (Auto) 0 % (0-3) Basophils (%) (Auto) 0 % (0-3) Neutrophils # (Auto) 4.7 x10^3/uL (1.8-7.7) Lymphocytes # (Auto) 0.7 x10^3/uL (1.0-4.8) Monocytes # (Auto) 0.9 x10^3/uL (0.0-1.1) Eosinophils # (Auto) 0.0 x10^3/uL (0.0-0.7) Basophils # (Auto) 0.0 x10^3/uL (0.0-0.2) Sodium Level 141 mmol/L (136-145) Potassium Level 3.3 mmol/L (3.5-5.1) Chloride Level 103 mmol/L (98-107) Carbon Dioxide Level 25 mmol/L (21-32) Anion Gap 13 (6-14) Blood Urea Nitrogen 92 mg/dL (7-20) Creatinine 1.9 mg/dL (0.6-1.0) Estimated GFR (Cockcroft-Gault) 28.1 BUN/Creatinine Ratio 48 (6-20) Glucose Level 152 mg/dL (70-99) Calcium Level 8.6 mg/dL (8.5-10.1) Phosphorus Level 5.2 mg/dL (2.6-4.7) Magnesium Level 1.7 mg/dL (1.8-2.4) Total Bilirubin 0.4 mg/dL (0.2-1.0) Aspartate Amino Transf (AST/SGOT) 23 U/L (15-37) Alanine Aminotransferase (ALT/SGPT) 11 U/L (14-59) Alkaline Phosphatase 49 U/L (46-116) Total Protein 5.1 g/dL (6.4-8.2) Albumin 2.6 g/dL (3.4-5.0) Albumin/Globulin Ratio 1.0 (1.0-1.7) Glucose (Fingerstick) 137 mg/dL (70-99) 134 mg/dL (70-99) 135 mg/dL (70-99) Test 08/07/19 00:57 Glucose (Fingerstick) 147 mg/dL (70-99) Medications Active Scripts Medications Dose Route/Sig Max Daily Dose Days Date Category Bisoprolol Fumarate 5 Mg Tablet 10 Mg PO DAILY 07/04/19 Reported Impression . IMPRESSION: 1. Acute hypoxemic respiratory failure secondary to ARDS status post trach, 2. Gallstone pancreatitis.with NECROSIS, NOT A SURGICAL CANDIDATE 3. Severe metabolic acidosis.stable 4. Acute kidney injury-stable, ON HD-- continue to improve 5. Acute gallstone pancreatitis. 6. Hypoalbuminemia. 7. Moderate persistent effusions 8. Fever-resolved 9. Chronic anemia 10. Covid 19 testing negative 11. Moderate to large ascites-S/P paracentisis 1 Plan . Cont. ventilatory support, ABG reviewed 35%/PEEP 5, weaning as tolerated, monitor resp status closely, Place back on A/C mod at HS hep sq and protonix for prophylaxis Follow surgery recs Follow ID rec, abx per id Follow nephrology recs Tolerated paracentesis well removed 4 liters on continue TPN for nutrition DVT/GI PPX d/w RN/RT TEN WHITFIELD MD Aug 07, 2019 06:06
[2019-08-07 07:05] LABS: BASO % 0 % (0-3); EOS % 0 % (0-3); HEMATOCRIT 21.2 % (36.0-47.0); LYMPH # 0.8 x10^3/uL (1.0-4.8); LYMPH % 12 % (24-48); MEAN CORPUSCULAR HEMOGLOBIN 31 pg (25-35); MEAN CORPUSCULAR HGB CONC 33 g/dL (31-37); MEAN CORPUSCULAR VOLUME 93 fL (79-100); MONO # 0.8 x10^3/uL (0.0-1.1); MONO % 11 % (0-9); NEUT # 5.3 x10^3/uL (1.8-7.7); NEUT % 76 % (31-73); PLATELET COUNT 497 x10^3/uL (140-400); RED BLOOD COUNT 2.28 x10^6/uL (3.50-5.40); RED CELL DISTRIBUTION WIDTH 18.5 % (11.5-14.5); WHITE BLOOD COUNT 6.9 x10^3/uL (4.0-11.0)
[2019-08-07 07:15] LABS: ALBUMIN 2.8 g/dL (3.4-5.0); ALBUMIN/GLOBULIN RATIO 1.2 (1.0-1.7); CALCIUM 8.4 mg/dL (8.5-10.1); CREATININE 1.4 mg/dL (0.6-1.0); POTASSIUM 3.8 mmol/L (3.5-5.1); TOTAL BILIRUBIN 0.5 mg/dL (0.2-1.0); TOTAL PROTEIN 5.2 g/dL (6.4-8.2)
--- NOTE | 2019-08-07 08:07 | RAD ---
EXAM: PORTABLE CHEST 1V INDICATION: Tracheostomy patient on the ventilator.. TECHNIQUE: Single view COMPARISON: 08/02/2019 FINDINGS: Tracheostomy tube remains present with the tip 4.5 cm above the shawanda. Right jugular approach central venous catheter and left jugular approach central venous catheter remain present, essentially unchanged. Tubing overlying the right upper extremity resembling a PICC line is no longer seen. Enteric tube remains present passing below the diaphragms. The heart size is normal. The great vessels appear unremarkable. Both jair are obscured by perihilar airspace opacities. Lungs remain low in volume but also show interval marked atelectasis of the right middle lobe and ill-defined opacity developing in the left upper lobe. No pneumothorax is seen but moderate bilateral pleural effusions are present. There are no significant osseous abnormalities. IMPRESSION: Tracheostomy tube with no pneumothorax but bilateral pleural effusions and worsening bilateral atelectasis/airspace opacities. Electronically signed by: Charan Dove MD (08/07/2019 8:04 AM) [id number]
[2019-08-07] MEDS: PANTOPRAZOLE IV PUSH 40 MG VIAL. IVP SCH (08:15)
[2019-08-07] MEDS: MICAFUNGIN 100 MG in IV DEXTROSE 5% 100ML 100 ML IV SCH (08:15)
[2019-08-07] MEDS: HEPARIN for SUB-Q USE 5,000 UNIT/ML VIAL. SQ SCH ×2 (08:23→21:09)
--- NOTE | 2019-08-07 08:52 | PDOC ---
PROGRESS NOTES Chief Complaint Chief Complaint A/P: Respiratory failure requiring mechanical ventilation (on vent since 07/10) bilateral pleural effusions/pulm edema Sepsis Severe Acute gallstone pancreatitis (not a surgical candidate at this time) with necrosis Acute kidney failure now requiring dialysis Salpingitis Gallstones (Calculus of gallbladder with acute cholecystitis without obstruction) HTN Leukocytosis Hypoxia Uterine fibroid Intractable pain Intractable nausea Covid 19 negative. Acute on chronic anemia EEG: No seizure activity. ESRD on HD Hyperglycemia, persistently in 200s History of Present Illness History of Present Illness Ms Diaz is a 48yo F w/ PMHx HTN, prediabetes who presented to the emergency room with complaints of abdominal pain on 07/04/2019. Found with Lipase 72072, AST 401, ALT 249, Bilirubin 1.4. CT abdomen confirms pancreatic inflammation, peripancreatic fluid and inflammatory changes around the pancreas consistent with pancreatitis. Cholelithiasis and 1.4cm uterine fibroid as well as possible left salpingitis. Admitted for further care GI, General surgery, ID, Pulm consulted. 07/04: No urine output. Added dilaudid for pain, PICC placed per IR. Renal US negative.Seen bedside in ICU, given 2L additional NSS and albumin infusion. Still hypotensive, started on levophed. Repeat CT abdomen w/ necrosis. 07/05: O2 saturation 87% on nasal cannula oxygen. Dialysis catheter per nephrology 07/06: She is now on BiPAP appears more ill, now on dialysis 07/07: Seen on BiPAP. Her mother and another family member are present and seemed to be good support for her. Currently on dialysis. Appears critically ill 07/08: Overnight Tmax 101.7 , still on BiPAP FiO2 40%, still on low dose Levophed gtt, TPN initiated. On dialysis 07/24: Tracheostomy 07/30: S/p tracheostomy on vent spontaneous respirations with 5 of pressure support 35% FiO2, rectal tube and a Lind, off pressors 07/31: Off pressors. Seen on dialysis this morning. BUN 80. Tracking with her eyes. Still on vent via trach. 08/01: BUN 68, Cr 1.7. Temp 100.2F axillary. WBC 9.8. Still on vent via trach. Tracking reasonably well. In obvious discomfort. Removed PICC and CVC LIJ and replaced. Tips sent for culture. CT chest/abd/pelvis with bilateral pleural effusion and ascites. 08/02: Renal function stable. Still on vent. More interactive today. Miming wish for food. Plan discussed for thoracentesis/paracentesis with daughters today. They were under impression patient was doing worse due to a miscommunication which has been clarified over the phone. 4.3L removed. 08/03: BUN 88, Cr 1.8. Much more interactive today. Appears more comfortable today. 08/04: Febrile overnight 101.8F. More interactive, still on vent. Asking for ice by miming. 08/05: Afebrile overnight. TMax last 24 hours 100.6F. Hb 7.1. Interactive when awake. Afebrile. Hb 7. Not tolerating vent wean. Very interactive, on low dose precedex. Excellent UOP over the past 72 hours Plan: Cont vent weaning, dialysis Trach shield during day if ok with pulm. Would recommend ABG after 4 hours to r/o CO2 retention, however and still vent overnight Vitals Vitals Vital Signs Date Time Temp Pulse Resp B/P (MAP) Pulse Ox O2 Delivery O2 Flow Rate FiO2 08/07/19 08:00 Mechanical Ventilator 08/07/19 07:30 100 08/07/19 07:00 95 18 126/69 (88) 08/07/19 04:00 98.9 98.9 Physical Exam Physical Exam GENERAL: Propped up in bed, resting quietly, arouses to voice HEENT: Pupils equal, + NGT, oral cavity dry NECK: Trach/vent LUNGS: Diminished aeration HEART: S1, S2, regular ABDOMEN: Less distended, tender, hypoactive BS, : Lind changed 08/01 EXTREMITIES: Generalized edema, no cyanosis, SCDs bilaterally DERMATOLOGIC: Warm and dry. No generalized rash. CENTRAL NERVOUS SYSTEM: Nods appropriately to few questions, HDC & LIJ (08/01) clean General: Other (SOMNULENT) Heart: Other (increased rate) Lungs: Other (dimished in BLL) Abdomen: Other (DISTENDED) Extremities: Other (ANASARCA) Skin: Other (mottling noted to extremities ) Labs LABS Laboratory Tests Test 08/06/19 14:41 08/06/19 18:13 08/07/19 00:57 08/07/19 06:50 Glucose (Fingerstick) 134 mg/dL (70-99) 135 mg/dL (70-99) 147 mg/dL (70-99) White Blood Count 6.9 x10^3/uL (4.0-11.0) Red Blood Count 2.28 x10^6/uL (3.50-5.40) Hemoglobin 7.0 g/dL (12.0-15.5) Hematocrit 21.2 % (36.0-47.0) Mean Corpuscular Volume 93 fL (79-100) Mean Corpuscular Hemoglobin 31 pg (25-35) Mean Corpuscular Hemoglobin Concent 33 g/dL (31-37) Red Cell Distribution Width 18.5 % (11.5-14.5) Platelet Count 497 x10^3/uL (140-400) Neutrophils (%) (Auto) 76 % (31-73) Lymphocytes (%) (Auto) 12 % (24-48) Monocytes (%) (Auto) 11 % (0-9) Eosinophils (%) (Auto) 0 % (0-3) Basophils (%) (Auto) 0 % (0-3) Neutrophils # (Auto) 5.3 x10^3/uL (1.8-7.7) Lymphocytes # (Auto) 0.8 x10^3/uL (1.0-4.8) Monocytes # (Auto) 0.8 x10^3/uL (0.0-1.1) Eosinophils # (Auto) 0.0 x10^3/uL (0.0-0.7) Basophils # (Auto) 0.0 x10^3/uL (0.0-0.2) Sodium Level 140 mmol/L (136-145) Potassium Level 3.8 mmol/L (3.5-5.1) Chloride Level 103 mmol/L (98-107) Carbon Dioxide Level 27 mmol/L (21-32) Anion Gap 10 (6-14) Blood Urea Nitrogen 65 mg/dL (7-20) Creatinine 1.4 mg/dL (0.6-1.0) Estimated GFR (Cockcroft-Gault) 40.0 BUN/Creatinine Ratio 46 (6-20) Glucose Level 136 mg/dL (70-99) Calcium Level 8.4 mg/dL (8.5-10.1) Magnesium Level 1.8 mg/dL (1.8-2.4) Total Bilirubin 0.5 mg/dL (0.2-1.0) Aspartate Amino Transf (AST/SGOT) 21 U/L (15-37) Alanine Aminotransferase (ALT/SGPT) 11 U/L (14-59) Alkaline Phosphatase 47 U/L (46-116) Total Protein 5.2 g/dL (6.4-8.2) Albumin 2.8 g/dL (3.4-5.0) Albumin/Globulin Ratio 1.2 (1.0-1.7) Test 08/07/19 06:58 Glucose (Fingerstick) 126 mg/dL (70-99) Assessment and Plan Assessmemt and Plan Problems Medical Problems: (1) Acute pancreatitis Status: Acute (2) Cholelithiasis Status: Acute Comment Review of Relevant I have reviewed the following items kolby (where applicable) has been applied. Labs Laboratory Tests Test 08/05/19 13:08 08/05/19 17:06 08/06/19 06:10 08/06/19 07:17 Glucose (Fingerstick) 181 mg/dL (70-99) 146 mg/dL (70-99) 137 mg/dL (70-99) White Blood Count 6.3 x10^3/uL (4.0-11.0) Red Blood Count 2.23 x10^6/uL (3.50-5.40) Hemoglobin 7.1 g/dL (12.0-15.5) Hematocrit 21.1 % (36.0-47.0) Mean Corpuscular Volume 95 fL (79-100) Mean Corpuscular Hemoglobin 32 pg (25-35) Mean Corpuscular Hemoglobin Concent 33 g/dL (31-37) Red Cell Distribution Width 18.1 % (11.5-14.5) Platelet Count 539 x10^3/uL (140-400) Neutrophils (%) (Auto) 74 % (31-73) Lymphocytes (%) (Auto) 12 % (24-48) Monocytes (%) (Auto) 14 % (0-9) Eosinophils (%) (Auto) 0 % (0-3) Basophils (%) (Auto) 0 % (0-3) Neutrophils # (Auto) 4.7 x10^3/uL (1.8-7.7) Lymphocytes # (Auto) 0.7 x10^3/uL (1.0-4.8) Monocytes # (Auto) 0.9 x10^3/uL (0.0-1.1) Eosinophils # (Auto) 0.0 x10^3/uL (0.0-0.7) Basophils # (Auto) 0.0 x10^3/uL (0.0-0.2) Sodium Level 141 mmol/L (136-145) Potassium Level 3.3 mmol/L (3.5-5.1) Chloride Level 103 mmol/L (98-107) Carbon Dioxide Level 25 mmol/L (21-32) Anion Gap 13 (6-14) Blood Urea Nitrogen 92 mg/dL (7-20) Creatinine 1.9 mg/dL (0.6-1.0) Estimated GFR (Cockcroft-Gault) 28.1 BUN/Creatinine Ratio 48 (6-20) Glucose Level 152 mg/dL (70-99) Calcium Level 8.6 mg/dL (8.5-10.1) Phosphorus Level 5.2 mg/dL (2.6-4.7) Magnesium Level 1.7 mg/dL (1.8-2.4) Total Bilirubin 0.4 mg/dL (0.2-1.0) Aspartate Amino Transf (AST/SGOT) 23 U/L (15-37) Alanine Aminotransferase (ALT/SGPT) 11 U/L (14-59) Alkaline Phosphatase 49 U/L (46-116) Total Protein 5.1 g/dL (6.4-8.2) Albumin 2.6 g/dL (3.4-5.0) Albumin/Globulin Ratio 1.0 (1.0-1.7) Test 08/06/19 14:41 08/06/19 18:13 08/07/19 00:57 08/07/19 06:50 Glucose (Fingerstick) 134 mg/dL (70-99) 135 mg/dL (70-99) 147 mg/dL (70-99) White Blood Count 6.9 x10^3/uL (4.0-11.0) Red Blood Count 2.28 x10^6/uL (3.50-5.40) Hemoglobin 7.0 g/dL (12.0-15.5) Hematocrit 21.2 % (36.0-47.0) Mean Corpuscular Volume 93 fL (79-100) Mean Corpuscular Hemoglobin 31 pg (25-35) Mean Corpuscular Hemoglobin Concent 33 g/dL (31-37) Red Cell Distribution Width 18.5 % (11.5-14.5) Platelet Count 497 x10^3/uL (140-400) Neutrophils (%) (Auto) 76 % (31-73) Lymphocytes (%) (Auto) 12 % (24-48) Monocytes (%) (Auto) 11 % (0-9) Eosinophils (%) (Auto) 0 % (0-3) Basophils (%) (Auto) 0 % (0-3) Neutrophils # (Auto) 5.3 x10^3/uL (1.8-7.7) Lymphocytes # (Auto) 0.8 x10^3/uL (1.0-4.8) Monocytes # (Auto) 0.8 x10^3/uL (0.0-1.1) Eosinophils # (Auto) 0.0 x10^3/uL (0.0-0.7) Basophils # (Auto) 0.0 x10^3/uL (0.0-0.2) Sodium Level 140 mmol/L (136-145) Potassium Level 3.8 mmol/L (3.5-5.1) Chloride Level 103 mmol/L (98-107) Carbon Dioxide Level 27 mmol/L (21-32) Anion Gap 10 (6-14) Blood Urea Nitrogen 65 mg/dL (7-20) Creatinine 1.4 mg/dL (0.6-1.0) Estimated GFR (Cockcroft-Gault) 40.0 BUN/Creatinine Ratio 46 (6-20) Glucose Level 136 mg/dL (70-99) Calcium Level 8.4 mg/dL (8.5-10.1) Magnesium Level 1.8 mg/dL (1.8-2.4) Total Bilirubin 0.5 mg/dL (0.2-1.0) Aspartate Amino Transf (AST/SGOT) 21 U/L (15-37) Alanine Aminotransferase (ALT/SGPT) 11 U/L (14-59) Alkaline Phosphatase 47 U/L (46-116) Total Protein 5.2 g/dL (6.4-8.2) Albumin 2.8 g/dL (3.4-5.0) Albumin/Globulin Ratio 1.2 (1.0-1.7) Test 08/07/19 06:58 Glucose (Fingerstick) 126 mg/dL (70-99) Laboratory Tests Test 08/06/19 14:41 08/06/19 18:13 08/07/19 00:57 08/07/19 06:50 Glucose (Fingerstick) 134 mg/dL (70-99) 135 mg/dL (70-99) 147 mg/dL (70-99) White Blood Count 6.9 x10^3/uL (4.0-11.0) Red Blood Count 2.28 x10^6/uL (3.50-5.40) Hemoglobin 7.0 g/dL (12.0-15.5) Hematocrit 21.2 % (36.0-47.0) Mean Corpuscular Volume 93 fL (79-100) Mean Corpuscular Hemoglobin 31 pg (25-35) Mean Corpuscular Hemoglobin Concent 33 g/dL (31-37) Red Cell Distribution Width 18.5 % (11.5-14.5) Platelet Count 497 x10^3/uL (140-400) Neutrophils (%) (Auto) 76 % (31-73) Lymphocytes (%) (Auto) 12 % (24-48) Monocytes (%) (Auto) 11 % (0-9) Eosinophils (%) (Auto) 0 % (0-3) Basophils (%) (Auto) 0 % (0-3) Neutrophils # (Auto) 5.3 x10^3/uL (1.8-7.7) Lymphocytes # (Auto) 0.8 x10^3/uL (1.0-4.8) Monocytes # (Auto) 0.8 x10^3/uL (0.0-1.1) Eosinophils # (Auto) 0.0 x10^3/uL (0.0-0.7) Basophils # (Auto) 0.0 x10^3/uL (0.0-0.2) Sodium Level 140 mmol/L (136-145) Potassium Level 3.8 mmol/L (3.5-5.1) Chloride Level 103 mmol/L (98-107) Carbon Dioxide Level 27 mmol/L (21-32) Anion Gap 10 (6-14) Blood Urea Nitrogen 65 mg/dL (7-20) Creatinine 1.4 mg/dL (0.6-1.0) Estimated GFR (Cockcroft-Gault) 40.0 BUN/Creatinine Ratio 46 (6-20) Glucose Level 136 mg/dL (70-99) Calcium Level 8.4 mg/dL (8.5-10.1) Magnesium Level 1.8 mg/dL (1.8-2.4) Total Bilirubin 0.5 mg/dL (0.2-1.0) Aspartate Amino Transf (AST/SGOT) 21 U/L (15-37) Alanine Aminotransferase (ALT/SGPT) 11 U/L (14-59) Alkaline Phosphatase 47 U/L (46-116) Total Protein 5.2 g/dL (6.4-8.2) Albumin 2.8 g/dL (3.4-5.0) Albumin/Globulin Ratio 1.2 (1.0-1.7) Test 08/07/19 06:58 Glucose (Fingerstick) 126 mg/dL (70-99) Microbiology 08/03/19 Aerobic and Anaerobic Culture, Resulted Pending 08/03/19 Anaerobic Culture Result 1 (ALEXANDRA), Resulted Pending 08/03/19 Aerobic Culture - Preliminary, Resulted 08/03/19 Aerobic Culture Result 1 (ALEXANDRA) - Preliminary, Resulted 08/03/19 Gram Stain - Final, Resulted 08/03/19 Gram Stain Result 1 (ALEXANDRA) - Final, Resulted 08/03/19 Gram Stain Result 2 (ALEXANDRA) - Final, Resulted 08/02/19 Blood Culture - Preliminary, Resulted NO GROWTH AFTER 4 DAYS 07/31/19 Urine Culture - Final, Complete 07/31/19 Urine Culture Result 1 (ALEXANDRA) - Final, Complete Medications Current Medications Sodium Chloride 1,000 ml @ 1,000 mls/hr Q1H IV Last administered on 07/04/19at 03:00; Start 07/04/19 at 03:00; Stop 07/04/19 at 03:59; Status DC Ondansetron HCl (Zofran) 4 mg 1X ONCE IVP Last administered on 07/04/19at 03:27; Start 07/04/19 at 03:00; Stop 07/04/19 at 03:01; Status DC Morphine Sulfate (Morphine Sulfate) 4 mg 1X ONCE IV ; Start 07/04/19 at 03:00; Stop 07/04/19 at 03:01; Status Cancel Ketorolac Tromethamine (Toradol 30mg Vial) 30 mg 1X ONCE IV Last administered on 07/04/19at 02:54; Start 07/04/19 at 03:00; Stop 07/04/19 at 03:01; Status DC Fentanyl Citrate (Fentanyl 2ml Vial) 25 mcg 1X ONCE IVP Last administered on 07/04/19at 03:23; Start 07/04/19 at 03:30; Stop 07/04/19 at 03:31; Status DC Fentanyl Citrate (Fentanyl 2ml Vial) 100 mcg STK-MED ONCE .ROUTE ; Start 07/04/19 at 03:18; Stop 07/04/19 at 03:18; Status DC Iohexol (Omnipaque 350 Mg/ml) 90 ml 1X ONCE IV Last administered on 07/04/19at 03:25; Start 07/04/19 at 03:30; Stop 07/04/19 at 03:31; Status DC Info (CONTRAST GIVEN -- Rx MONITORING) 1 each PRN DAILY PRN MC SEE COMMENTS; Start 07/04/19 at 03:30; Stop 07/06/19 at 03:29; Status DC Hydromorphone HCl (Dilaudid) 0.5 mg 1X ONCE IV Last administered on 07/04/19at 03:55; Start 07/04/19 at 04:30; Stop 07/04/19 at 04:32; Status DC Ondansetron HCl (Zofran) 4 mg PRN Q8HRS PRN IV NAUSEA/VOMITING 1ST CHOICE; Start 07/04/19 at 05:00; Stop 07/04/19 at 09:27; Status DC Morphine Sulfate (Morphine Sulfate) 2 mg PRN Q2HR PRN IV SEVERE PAIN 7-10 Last administered on 07/05/19at 12:26; Start 07/04/19 at 05:00; Stop 07/05/19 at 14:15; Status DC Sodium Chloride 1,000 ml @ 125 mls/hr Q8H IV Last administered on 07/04/19at 20:56; Start 07/04/19 at 05:00; Stop 07/05/19 at 04:59; Status DC Hydromorphone HCl (Dilaudid) 0.5 mg PRN Q3HRS PRN IV SEVERE PAIN 7-10 Last administered on 07/05/19at 10:06; Start 07/04/19 at 05:00; Stop 07/05/19 at 12:01; Status DC Piperacillin Sod/ Tazobactam Sod 4.5 gm/Sodium Chloride 100 ml @ 200 mls/hr 1X ONCE IV Last administered on 07/04/19at 05:44; Start 07/04/19 at 06:00; Stop 07/04/19 at 06:29; Status DC Ondansetron HCl (Zofran) 4 mg PRN Q4HRS PRN IV NAUSEA/VOMITING 1ST CHOICE Last administered on 08/05/19at 18:01; Start 07/04/19 at 09:30 Insulin Human Lispro (HumaLOG) 0-9 UNITS Q6HRS SQ Last administered on 08/05/19at 12:00; Start 07/04/19 at 09:30 Dextrose (Dextrose 50%-Water Syringe) 12.5 gm PRN Q15MIN PRN IV SEE COMMENTS; Start 07/04/19 at 09:30 Pantoprazole Sodium (PROTONIX VIAL for IV PUSH) 40 mg DAILYAC IVP Last administered on 08/07/19at 08:15; Start 07/04/19 at 11:30 Prochlorperazine Edisylate (Compazine) 10 mg PRN Q6HRS PRN IV NAUSEA/VOMITING, 2nd CHOICE Last administered on 08/06/19at 14:08; Start 07/04/19 at 17:45 Atenolol (Tenormin) 100 mg DAILY PO ; Start 07/05/19 at 09:00; Stop 07/04/19 at 20:08; Status DC Metoprolol Tartrate (Lopressor Vial) 2.5 mg Q6HRS IVP Last administered on 07/05/19at 05:51; Start 07/04/19 at 20:15; Stop 07/05/19 at 10:02; Status DC Metoprolol Tartrate (Lopressor Vial) 5 mg Q6HRS IVP Last administered on 07/14/19at 00:12; Start 07/05/19 at 10:15; Stop 07/16/19 at 08:48; Status DC Hydromorphone HCl (Dilaudid) 1 mg PRN Q3HRS PRN IV SEVERE PAIN 7-10 Last administered on 07/11/19at 05:13; Start 07/05/19 at 12:00; Stop 07/19/19 at 00:25; Status DC Lidocaine HCl (Buffered Lidocaine 1%) 3 ml STK-MED ONCE .ROUTE ; Start 07/05/19 at 12:55; Stop 07/05/19 at 12:56; Status DC Albumin Human 500 ml @ 125 mls/hr 1X ONCE IV Last administered on 07/05/19at 14:33; Start 07/05/19 at 14:30; Stop 07/05/19 at 18:32; Status DC Norepinephrine Bitartrate 8 mg/ Dextrose 258 ml @ 17.299 mls/ hr CONT PRN IV PER PROTOCOL Last administered on 08/02/19at 12:48; Start 07/05/19 at 15:30; Sto p 08/05/19 at 09:19; Status DC Sodium Chloride 1,000 ml @ 125 mls/hr Q8H IV Last administered on 07/05/19at 21:04; Start 07/05/19 at 16:00; Stop 07/06/19 at 02:42; Status DC Albumin Human 500 ml @ 125 mls/hr PRN BID PRN IV After every 2L NSS & BP < 90m m Last administered on 07/20/19at 14:21; Start 07/05/19 at 16:00 Iohexol (Omnipaque 300 Mg/ml) 60 ml 1X ONCE IV Last administered on 07/05/19at 17:20; Start 07/05/19 at 17:00; Stop 07/05/19 at 17:01; Status DC Info (CONTRAST GIVEN -- Rx MONITORING) 1 each PRN DAILY PRN MC SEE COMMENTS; Start 07/05/19 at 17:00; Stop 07/07/19 at 16:59; Status DC Meropenem 1 gm/ Sodium Chloride 100 ml @ 200 mls/hr Q8HRS IV Last administered on 07/06/19at 05:45; Start 07/05/19 at 20:00; Stop 07/06/19 at 08:48; Status DC Furosemide (Lasix) 40 mg 1X ONCE IVP Last administered on 07/05/19at 22:12; Start 07/05/19 at 22:30; Stop 07/05/19 at 22:31; Status DC Calcium Chloride 1000 mg/Sodium Chloride 110 ml @ 220 mls/hr 1X ONCE IV Last administered on 07/05/19at 22:11; Start 07/05/19 at 22:30; Stop 07/05/19 at 22:59; Status DC Albuterol Sulfate (Ventolin Neb Soln) 2.5 mg 1X ONCE NEB Last administered on 07/06/19at 00:56; Start 07/05/19 at 22:30; Stop 07/05/19 at 22:31; Status DC Insulin Human Regular (HumuLIN R VIAL) 5 unit 1X ONCE IV Last administered on 07/05/19at 22:14; Start 07/05/19 at 22:30; Stop 07/05/19 at 22:31; Status DC Magnesium Sulfate 50 ml @ 25 mls/hr 1X ONCE IV Last administered on 07/06/19at 02:57; Start 07/06/19 at 03:00; Stop 07/06/19 at 04:59; Status DC Calcium Gluconate 1000 mg/Sodium Chloride 110 ml @ 220 mls/hr 1X ONCE IV Last administered on 07/06/19at 02:46; Start 07/06/19 at 03:00; Stop 07/06/19 at 03:29; Status DC Sodium Chloride 1,000 ml @ 200 mls/hr Q5H IV Last administered on 07/06/19at 02:46; Start 07/06/19 at 03:00; Stop 07/06/19 at 10:21; Status DC Calcium Gluconate 1000 mg/Sodium Chloride 110 ml @ 220 mls/hr 1X ONCE IV Last administered on 07/06/19at 03:21; Start 07/06/19 at 03:30; Stop 07/06/19 at 03:59; Status DC Sodium Bicarbonate 50 meq/Sodium Chloride 1,050 ml @ 75 mls/hr Q14H IV Last administered on 07/10/19at 21:10; Start 07/06/19 at 07:30; Stop 07/11/19 at 10:28; Status DC Calcium Gluconate 2000 mg/Sodium Chloride 120 ml @ 220 mls/hr 1X ONCE IV Last administered on 07/06/19at 09:05; Start 07/06/19 at 07:30; Stop 07/06/19 at 08:02; Status DC Lidocaine HCl (Xylocaine-Mpf 1% 2ml Vial) 2 ml STK-MED ONCE .ROUTE ; Start 07/06/19 at 08:47; Stop 07/06/19 at 08:47; Status DC Meropenem 500 mg/ Sodium Chloride 50 ml @ 100 mls/hr Q12HR IV Last administered on 07/11/19at 21:01; Start 07/06/19 at 18:00; Stop 07/12/19 at 07:58; Status DC Lidocaine HCl (Buffered Lidocaine 1%) 3 ml STK-MED ONCE .ROUTE ; Start 07/06/19 at 09:46; Stop 07/06/19 at 09:46; Status DC Lidocaine HCl (Buffered Lidocaine 1%) 6 ml 1X ONCE INJ Last administered on 07/06/19at 10:26; Start 07/06/19 at 10:15; Stop 07/06/19 at 10:16; Status DC Info (Tpn Per Pharmacy) 1 each PRN DAILY PRN MC SEE COMMENTS Last administered on 08/06/19at 13:05; Start 07/06/19 at 12:00 Sodium Chloride 1,000 ml @ 1,000 mls/hr Q1H PRN IV hypotension; Start 07/06/19 at 12:07; Stop 07/06/19 at 18:06; Status DC Diphenhydramine HCl (Benadryl) 25 mg 1X PRN PRN IV ITCHING; Start 07/06/19 at 12:15; Stop 07/07/19 at 12:14; Status DC Diphenhydramine HCl (Benadryl) 25 mg 1X PRN PRN IV ITCHING; Start 07/06/19 at 12:15; Stop 07/07/19 at 12:14; Status DC Sodium Chloride 1,000 ml @ 400 mls/hr Q2H30M PRN IV PATENCY; Start 07/06/19 at 12:07; Stop 07/07/19 at 00:06; Status DC Info (PHARMACY MONITORING -- do not chart) 1 each PRN DAILY PRN MC SEE COMMENTS; Start 07/06/19 at 12:15; Stop 07/08/19 at 08:13; Status DC Sodium Chloride 90 meq/Calcium Gluconate 10 meq/ Multivitamins 10 ml/Chromium/ Copper/Manganese/ Seleni/Zn 1 ml/ Total Parenteral Nutrition/Amino Acids/Dextrose/ Fat Emulsion Intravenous 55.005 ml @ 2.292 mls/hr TPN CONT IV ; Start 07/06/19 at 22:00; Stop 07/06/19 at 12:33; Status DC Info (Tpn Per Pharmacy) 1 each PRN DAILY PRN MC SEE COMMENTS; Start 07/06/19 at 12:30; Status UNV Sodium Chloride 90 meq/Calcium Gluconate 10 meq/ Multivitamins 10 ml/Chromium/ Copper/Manganese/ Seleni/Zn 0.5 ml/ Total Parenteral Nutrition/Amino Acids/Dextrose/ Fat Emulsion Intravenous 1,512 ml @ 63 mls/hr TPN CONT IV Last administered on 07/06/19at 22:06; Start 07/06/19 at 22:00; Stop 07/07/19 at 21:59; Status DC Calcium Carbonate/ Glycine (Tums) 500 mg PRN AFTMEALHC PRN PO INDIGESTION; Start 07/06/19 at 17:45 Calcium Gluconate (Calcium Gluconate) 2,000 mg 1X ONCE IVP Last administered on 07/07/19at 02:19; Start 07/07/19 at 02:15; Stop 07/07/19 at 02:16; Status DC Calcium Chloride 3000 mg/Sodium Chloride 1,030 ml @ 50 mls/hr [id number] IV Last administered on 07/09/19at 02:17; Start 07/07/19 at 08:00; Stop 07/09/19 at 15:23; Status DC Lorazepam (Ativan Inj) 1 mg PRN Q4HRS PRN IVP ANXIETY / AGITATION, 2nd choic Last administered on 08/05/19at 03:51; Start 07/07/19 at 09:00; Stop 08/05/19 at 09:19; Status DC Sodium Chloride 1,000 ml @ 1,000 mls/hr Q1H PRN IV hypotension; Start 07/07/19 at 08:56; Stop 07/07/19 at 14:55; Status DC Albumin Human 200 ml @ 200 mls/hr 1X PRN PRN IV Hypotension; Start 07/07/19 at 09:00; Stop 07/07/19 at 14:59; Status DC Diphenhydramine HCl (Benadryl) 25 mg 1X PRN PRN IV ITCHING; Start 07/07/19 at 09:00; Stop 07/08/19 at 08:59; Status DC Diphenhydramine HCl (Benadryl) 25 mg 1X PRN PRN IV ITCHING; Start 07/07/19 at 09:00; Stop 07/08/19 at 08:59; Status DC Sodium Chloride 1,000 ml @ 400 mls/hr Q2H30M PRN IV PATENCY; Start 07/07/19 at 08:56; Stop 07/07/19 at 20:55; Status DC Info (PHARMACY MONITORING -- do not chart) 1 each PRN DAILY PRN MC SEE COMMENTS; Start 07/07/19 at 09:00; Status UNV Info (PHARMACY MONITORING -- do not chart) 1 each PRN DAILY PRN MC SEE COMMENTS; Start 07/07/19 at 09:00; Stop 07/08/19 at 08:13; Status DC Digoxin (Lanoxin) 500 mcg 1X ONCE IV Last administered on 07/07/19at 10:04; Start 07/07/19 at 10:00; Stop 07/07/19 at 10:01; Status DC Digoxin (Lanoxin) 125 mcg 1X ONCE IV Last administered on 07/07/19at 17:10; Start 07/07/19 at 18:00; Stop 07/07/19 at 18:01; Status DC Magnesium Sulfate 100 ml @ 25 mls/hr 1X ONCE IV Last administered on 07/07/19at 12:48; Start 07/07/19 at 13:00; Stop 07/07/19 at 16:59; Status DC Sodium Chloride 90 meq/Magnesium Sulfate 10 meq/ Calcium Gluconate 20 meq/ Multivitamins 10 ml/Chromium/ Copper/Manganese/ Seleni/Zn 0.5 ml/ Total Parenteral Nutrition/Amino Acids/Dextrose/ Fat Emulsion Intravenous 1,512 ml @ 63 mls/hr TPN CONT IV Last administered on 07/07/19at 22:25; Start 07/07/19 at 22:00; Stop 07/08/19 at 21:59; Status DC Sodium Chloride 1,000 ml @ 1,000 mls/hr Q1H PRN IV hypotension; Start 07/08/19 at 08:05; Stop 07/08/19 at 14:04; Status DC Albumin Human 200 ml @ 200 mls/hr 1X ONCE IV Last administered on 07/08/19at 08:57; Start 07/08/19 at 08:15; Stop 07/08/19 at 09:14; Status DC Diphenhydramine HCl (Benadryl) 25 mg 1X PRN PRN IV ITCHING; Start 07/08/19 at 08:15; Stop 07/09/19 at 08:14; Status DC Diphenhydramine HCl (Benadryl) 25 mg 1X PRN PRN IV ITCHING; Start 07/08/19 at 08:15; Stop 07/09/19 at 08:14; Status DC Sodium Chloride 1,000 ml @ 400 mls/hr Q2H30M PRN IV PATENCY; Start 07/08/19 at 08:05; Stop 07/08/19 at 20:04; Status DC Info (PHARMACY MONITORING -- do not chart) 1 each PRN DAILY PRN MC SEE COMMENTS; Start 07/08/19 at 08:15; Stop 07/12/19 at 07:57; Status DC Sodium Chloride 90 meq/Potassium Chloride 15 meq/ Potassium Phosphate 10 mmol/ Magnesium Sulfate 10 meq/Calcium Gluconate 20 meq/ Multivitamins 10 ml/Chromium/ Copper/Manganese/ Seleni/Zn 0.5 ml/ Total Parenteral Nutrition/Amino Acids/Dext amarilis/ Fat Emulsion Intravenous 1,512 ml @ 63 mls/hr TPN CONT IV Last administered on 07/08/19at 21:01; Start 07/08/19 at 22:00; Stop 07/09/19 at 21:59; Status DC Potassium Chloride/Water 100 ml @ 100 mls/hr 1X ONCE IV Last administered on 07/08/19at 14:09; Start 07/08/19 at 14:00; Stop 07/08/19 at 14:59; Status DC Benzocaine (Hurricaine One) 1 spray 1X ONCE MM Last administered on 07/08/19at 16:38; Start 07/08/19 at 14:30; Stop 07/08/19 at 14:31; Status DC Lidocaine HCl (Glydo (Lidocaine) Jelly) 1 ramu 1X ONCE MM Last administered on 07/08/19at 16:38; Start 07/08/19 at 14:30; Stop 07/08/19 at 14:31; Status DC Linezolid/Dextrose 300 ml @ 300 mls/hr Q12HR IV Last administered on 07/14/19at 21:04; Start 07/08/19 at 20:00; Stop 07/15/19 at 07:50; Status DC Acetaminophen (Tylenol) 650 mg PRN Q6HRS PRN PO MILD PAIN / TEMP; Start 07/09/19 at 03:30; Stop 07/09/19 at 03:36; Status DC Acetaminophen (Tylenol) 650 mg PRN Q6HRS PRN PEG MILD PAIN / TEMP Last administered on 08/04/19at 19:56; Start 07/09/19 at 03:36 Sodium Chloride 1,000 ml @ 1,000 mls/hr Q1H PRN IV hypotension; Start 07/09/19 at 07:50; Stop 07/09/19 at 13:49; Status DC Albumin Human 200 ml @ 200 mls/hr 1X PRN PRN IV Hypotension; Start 07/09/19 at 08:00; Stop 07/09/19 at 13:59; Status DC Sodium Chloride (Normal Saline Flush) 10 ml 1X PRN PRN IV AP catheter pack; Start 07/09/19 at 08:00; Stop 07/10/19 at 07:59; Status DC Sodium Chloride (Normal Saline Flush) 10 ml 1X PRN PRN IV [employer] catheter pack; Start 07/09/19 at 08:00; Stop 07/10/19 at 07:59; Status DC Sodium Chloride 1,000 ml @ 400 mls/hr Q2H30M PRN IV PATENCY; Start 07/09/19 at 07:50; Stop 07/09/19 at 19:49; Status DC Info (PHARMACY MONITORING -- do not chart) 1 each PRN DAILY PRN MC SEE COMMENTS; Start 07/09/19 at 08:00; Status UNV Info (PHARMACY MONITORING -- do not chart) 1 each PRN DAILY PRN MC SEE COMMENTS; Start 07/09/19 at 08:00; Stop 07/11/19 at 08:25; Status DC Sodium Chloride 90 meq/Potassium Chloride 15 meq/ Potassium Phosphate 10 mmol/ Magnesium Sulfate 10 meq/Calcium Gluconate 20 meq/ Multivitamins 10 ml/Chromium/ Copper/Manganese/ Seleni/Zn 0.5 ml/ Total Parenteral Nutrition/Amino Acids/Dextrose/ Fat Emulsion Intravenous 1,512 ml @ 63 mls/hr TPN CONT IV Last administered on 07/09/19at 20:57; Start 07/09/19 at 22:00; Stop 07/10/19 at 21:59; Status DC Sodium Chloride 90 meq/Potassium Chloride 15 meq/ Potassium Phosphate 15 mmol/ Magnesium Sulfate 10 meq/Calcium Gluconate 20 meq/ Multivitamins 10 ml/Chromium/ Copper/Manganese/ Seleni/Zn 0.5 ml/ Total Parenteral Nutrition/Amino Acids/Dextrose/ Fat Emulsion Intravenous 1,512 ml @ 63 mls/hr TPN CONT IV ; Start 07/10/19 at 22:00; Stop 07/10/19 at 14:16; Status DC Sodium Chloride 90 meq/Potassium Chloride 15 meq/ Potassium Phosphate 15 mmol/ Magnesium Sulfate 10 meq/Calcium Gluconate 20 meq/ Multivitamins 10 ml/Chromium/ Copper/Manganese/ Seleni/Zn 0.5 ml/ Total Parenteral Nutrition/Amino Acids/Dex trose/ Fat Emulsion Intravenous 1,200 ml @ 50 mls/hr TPN CONT IV ; Start 07/10/19 at 22:00; Stop 07/10/19 at 14:17; Status DC Sodium Chloride 90 meq/Potassium Chloride 15 meq/ Potassium Phosphate 10 mmol/ Magnesium Sulfate 10 meq/Calcium Gluconate 20 meq/ Multivitamins 10 ml/Chromium/ Copper/Manganese/ Seleni/Zn 0.5 ml/ Total Parenteral Nutrition/Amino Acids/Dextrose/ Fat Emulsion Intravenous 1,200 ml @ 50 mls/hr TPN CONT IV Last administered on 07/10/19at 23:29; Start 07/10/19 at 22:00; Stop 07/11/19 at 21:59; Status DC Sodium Chloride 1,000 ml @ 1,000 mls/hr Q1H PRN IV hypotension; Start 07/11/19 at 07:28; Stop 07/11/19 at 13:27; Status DC Albumin Human 200 ml @ 200 mls/hr 1X ONCE IV Last administered on 07/11/19at 08:51; Start 07/11/19 at 07:30; Stop 07/11/19 at 08:29; Status DC Diphenhydramine HCl (Benadryl) 25 mg 1X PRN PRN IV ITCHING; Start 07/11/19 at 07:30; Stop 07/12/19 at 07:29; Status DC Diphenhydramine HCl (Benadryl) 25 mg 1X PRN PRN IV ITCHING; Start 07/11/19 at 07:30; Stop 07/12/19 at 07:29; Status DC Sodium Chloride 1,000 ml @ 400 mls/hr Q2H30M PRN IV PATENCY; Start 07/11/19 at 07:28; Stop 07/11/19 at 19:27; Status DC Info (PHARMACY MONITORING -- do not chart) 1 each PRN DAILY PRN MC SEE COMMENTS; Start 07/11/19 at 07:30; Stop 07/22/19 at 13:01; Status DC Metronidazole 100 ml @ 100 mls/hr Q6HRS IV Last administered on 07/27/19at 06:26; Start 07/11/19 at 08:30; Stop 07/27/19 at 09:58; Status DC Micafungin Sodium 100 mg/Dextrose 100 ml @ 100 mls/hr Q24H IV Last administered on 08/07/19at 08:15; Start 07/11/19 at 09:00 Propofol 0 ml @ As Directed STK-MED ONCE IV ; Start 07/11/19 at 07:53; Stop 07/11/19 at 07:53; Status DC Etomidate (Amidate) 20 mg STK-MED ONCE IV ; Start 07/11/19 at 07:53; Stop 07/11/19 at 07:54; Status DC Midazolam HCl (Versed) 5 mg STK-MED ONCE .ROUTE ; Start 07/11/19 at 07:57; Stop 07/11/19 at 07:57; Status DC Fentanyl Citrate 30 ml @ 0 mls/hr CONT PRN IV SEE PROTOCOL Last administered on 08/05/19at 06:12; Start 07/11/19 at 08:15; Stop 08/05/19 at 09:19; Status DC Artificial Tears (Artificial Tears) 1 drop PRN Q1HR PRN OU DRY EYE, 1st choice; Start 07/11/19 at 08:15 Midazolam HCl 50 mg/Sodium Chloride 50 ml @ 0 mls/hr CONT PRN IV SEE PROTOCOL Last administered on 07/14/19at 22:39; Start 07/11/19 at 08:15; Stop 07/16/19 at 15:59; Status DC Etomidate (Amidate) 8 mg 1X ONCE IV Last administered on 07/11/19at 08:33; Start 07/11/19 at 08:30; Stop 07/11/19 at 08:31; Status DC Succinylcholine Chloride (Anectine) 120 mg 1X ONCE IV Last administered on 07/11/19at 08:34; Start 07/11/19 at 08:30; Stop 07/11/19 at 08:31; Status DC Midazolam HCl (Versed) 5 mg 1X ONCE IV ; Start 07/11/19 at 08:30; Stop 07/11/19 at 08:31; Status DC Potassium Chloride 15 meq/ Bicarbonate Dialysis Soln w/ out KCl 5,007.5 ml @ 1,000 mls/ hr Q5H1M IV Last administered on 07/12/19at 11:11; Start 07/11/19 at 12:00; Stop 07/12/19 at 11:15; Status DC Potassium Chloride 15 meq/ Bicarbonate Dialysis Soln w/ out KCl 5,007.5 ml @ 1,000 mls/ hr Q5H1M IV Last administered on 07/12/19at 11:12; Start 07/11/19 at 12:00; Stop 07/12/19 at 11:17; Status DC Potassium Chloride 15 meq/ Bicarbonate Dialysis Soln w/ out KCl 5,007.5 ml @ 1,000 mls/ hr Q5H1M IV Last administered on 07/12/19at 11:11; Start 07/11/19 at 12:00; Stop 07/12/19 at 11:19; Status DC Sodium Chloride 90 meq/Potassium Chloride 15 meq/ Potassium Phosphate 10 mmol/ Magnesium Sulfate 10 meq/Calcium Gluconate 20 meq/ Multivitamins 10 ml/Chromium/ Copper/Manganese/ Seleni/Zn 0.5 ml/ Total Parenteral Nutrition/Amino Acids/Dextrose/ Fat Emulsion Intravenous 1,400 ml @ 58.333 mls/ hr TPN CONT IV Last administered on 07/11/19at 21:42; Start 07/11/19 at 22:00; Stop 07/12/19 at 21:59; Status DC Heparin Sodium (Porcine) (Heparin Sodium) 5,000 unit Q8HRS SQ Last administered on 07/16/19at 05:55; Start 07/11/19 at 15:00; Stop 07/16/19 at 13:28; Status DC Meropenem 500 mg/ Sodium Chloride 50 ml @ 100 mls/hr Q6HRS IV Last a dministered on 07/13/19at 06:00; Start 07/12/19 at 09:00; Stop 07/13/19 at 07:29; Status DC Potassium Phosphate 20 mmol/ Sodium Chloride 106.6667 ml @ 51.667 m... 1X ONCE IV Last administered on 07/12/19at 11:22; Start 07/12/19 at 10:15; Stop 07/12/19 at 12:18; Status DC Acetaminophen (Tylenol Supp) 650 mg PRN Q6HRS PRN OK MILD PAIN / TEMP Last administered on 08/05/19at 10:25; Start 07/12/19 at 10:30 Potassium Chloride/Water 100 ml @ 100 mls/hr Q1H IV Last administered on 07/12/19at 12:12; Start 07/12/19 at 11:00; Stop 07/12/19 at 12:59; Status DC Potassium Chloride 20 meq/ Bicarbonate Dialysis Soln w/ out KCl 5,010 ml @ 1,00 0 mls/hr Q5H1M IV Last administered on 07/13/19at 08:48; Start 07/12/19 at 12:00; Stop 07/13/19 at 13:03; Status DC Potassium Chloride 20 meq/ Bicarbonate Dialysis Soln w/ out KCl 5,010 ml @ 1,000 mls/hr Q5H1M IV Last administered on 07/17/19at 14:52; Start 07/12/19 at 11:30; Stop 07/17/19 at 19:59; Status DC Potassium Chloride 20 meq/ Bicarbonate Dialysis Soln w/ out KCl 5,010 ml @ 1,000 mls/hr Q5H1M IV Last administered on 07/17/19at 14:53; Start 07/12/19 at 11:30; Stop 07/17/19 at 19:59; Status DC Sodium Chloride 90 meq/Potassium Chloride 15 meq/ Potassium Phosphate 15 mmol/ Magnesium Sulfate 10 meq/Calcium Gluconate 15 meq/ Multivitamins 10 ml/Chromium/ Copper/Manganese/ Seleni/Zn 0.5 ml/ Total Parenteral Nutrition/Amino Acids/Dextrose/ Fat Emulsion Intravenous 1,400 ml @ 58.333 mls/ hr TPN CONT IV Last administered on 07/12/19at 22:17; Start 07/12/19 at 22:00; Stop 07/13/19 at 21:59; Status DC Cefepime HCl (Maxipime) 2 gm Q12HR IVP Last administered on 07/26/19at 20:56; Start 07/13/19 at 09:00; Stop 07/27/19 at 09:58; Status DC Daptomycin 500 mg/ Sodium Chloride 50 ml @ 100 mls/hr Q48H IV Last administered on 07/29/19at 09:57; Start 07/13/19 at 08:30; Stop 07/29/19 at 10:07; Status DC Lidocaine HCl (Buffered Lidocaine 1%) 3 ml 1X ONCE INJ Last administered on 07/13/19at 10:27; Start 07/13/19 at 10:30; Stop 07/13/19 at 10:31; Status DC Potassium Phosphate 20 mmol/ Sodium Chloride 106.6667 ml @ 51.667 m... 1X ONCE IV Last administered on 07/13/19at 12:51; Start 07/13/19 at 13:00; Stop 07/13/19 at 15:03; Status DC Sodium Chloride 90 meq/Potassium Chloride 15 meq/ Potassium Phosphate 18 mmol/ Magnesium Sulfate 8 meq/Calcium Gluconate 15 meq/ Multivitamins 10 ml/Chromium/ Copper/Manganese/ Seleni/Zn 0.5 ml/ Total Parenteral Nutrition/Amino Acids/De xtrose/ Fat Emulsion Intravenous 1,400 ml @ 58.333 mls/ hr TPN CONT IV Last administered on 07/13/19at 22:16; Start 07/13/19 at 22:00; Stop 07/14/19 at 21:59; Status DC Potassium Chloride 20 meq/ Bicarbonate Dialysis Soln w/ out KCl 5,010 ml @ 1,000 mls/hr Q5H1M IV Last administered on 07/17/19at 14:54; Start 07/13/19 at 16:00; Stop 07/17/19 at 19:59; Status DC Multi-Ingred Cream/Lotion/Oil/ Oint (Artificial Tears Eye Ointment) 1 ramu PRN Q1HR PRN OU DRY EYE, 2nd choice Last administered on 08/01/19at 08:19; Start 07/13/19 at 17:30 Sodium Chloride 90 meq/Potassium Chloride 15 meq/ Potassium Phosphate 18 mmol/ Magnesium Sulfate 8 meq/Calcium Gluconate 15 meq/ Multivitamins 10 ml/Chromium/ Copper/Manganese/ Seleni/Zn 0.5 ml/ Total Parenteral Nutrition/Amino Acids/Dextrose/ Fat Emulsion Intravenous 1,400 ml @ 58.333 mls/ hr TPN CONT IV Last administered on 07/14/19at 22:00; Start 07/14/19 at 22:00; Stop 07/15/19 at 21:59; Status DC Albumin Human 500 ml @ 125 mls/hr 1X ONCE IV ; Start 07/14/19 at 14:15; Stop 07/14/19 at 18:14; Status DC Sodium Chloride 90 meq/Potassium Chloride 15 meq/ Potassium Phosphate 18 mmol/ Magnesium Sulfate 8 meq/Calcium Gluconate 15 meq/ Multivitamins 10 ml/Chromium/ Copper/Manganese/ Seleni/Zn 0.5 ml/ Insulin Human Regular 10 unit/ Total Parenteral Nutrition/Amino Acids/Dextrose/ Fat Emulsion Intravenous 1,400 ml @ 58.333 mls/ hr TPN CONT IV Last administered on 07/15/19at 21:43; Start 07/15/19 at 22:00; Stop 07/16/19 at 21:59; Status DC Lidocaine HCl (Buffered Lidocaine 1%) 3 ml STK-MED ONCE .ROUTE ; Start 07/13/19 at 10:00; Stop 07/15/19 at 13:57; Status DC Midazolam HCl 100 mg/Sodium Chloride 100 ml @ 7 mls/hr CONT PRN IV SEE PROTOCOL Last administered on 07/27/19at 15:35; Start 07/16/19 at 16:00 Sodium Chloride 90 meq/Potassium Chloride 15 meq/ Potassium Phosphate 18 mmol/ Magnesium Sulfate 8 meq/Calcium Gluconate 15 meq/ Multivitamins 10 ml/Chromium/ Copper/Manganese/ Seleni/Zn 0.5 ml/ Insulin Human Regular 15 unit/ Total Parenteral Nutrition/Amino Acids/Dextrose/ Fat Emulsion Intravenous 1,400 ml @ 58.333 mls/ hr TPN CONT IV Last administered on 07/16/19at 20:34; Start 07/16/19 at 22:00; Stop 07/17/19 at 21:59; Status DC Info (Icu Electrolyte Protocol) 1 ea CONT PRN PRN MC PER PROTOCOL; Start 07/17/19 at 13:15 Sodium Chloride 90 meq/Potassium Chloride 15 meq/ Potassium Phosphate 18 mmol/ Magnesium Sulfate 8 meq/Calcium Gluconate 15 meq/ Multivitamins 10 ml/Chromium/ Copper/Manganese/ Seleni/Zn 0.5 ml/ Insulin Human Regular 15 unit/ Total Parenteral Nutrition/Amino Acids/Dextrose/ Fat Emulsion Intravenous 1,400 ml @ 58.333 mls/ hr TPN CONT IV Last administered on 07/17/19at 22:05; Start 0 at 22:00; Stop 07/18/19 at 21:59; Status DC Potassium Chloride 15 meq/ Bicarbonate Dialysis Soln w/ out KCl 5,007.5 ml @ 1,000 mls/ hr Q5H1M IV Last administered on 07/20/19at 18:14; Start 07/17/19 at 20:00; Stop 07/21/19 at 13:08; Status DC Potassium Chloride 15 meq/ Bicarbonate Dialysis Soln w/ out KCl 5,007.5 ml @ 1,000 mls/ hr Q5H1M IV Last administered on 07/20/19at 18:14; Start 07/17/19 at 20:00; Stop 07/21/19 at 13:08; Status DC Potassium Chloride 15 meq/ Bicarbonate Dialysis Soln w/ out KCl 5,007.5 ml @ 1,000 mls/ hr Q5H1M IV Last administered on 07/20/19at 18:14; Start 07/17/19 at 20:00; Stop 07/21/19 at 13:08; Status DC Iohexol (Omnipaque 240 Mg/ml) 30 ml 1X ONCE PO Last administered on 07/18/19at 11:30; Start 07/18/19 at 11:30; Stop 07/18/19 at 11:33; Status DC Info (CONTRAST GIVEN -- Rx MONITORING) 1 each PRN DAILY PRN MC SEE COMMENTS; Start 07/18/19 at 11:45; Stop 07/20/19 at 11:44; Status DC Sodium Chloride 90 meq/Potassium Chloride 15 meq/ Potassium Phosphate 18 mmol/ Magnesium Sulfate 8 meq/Calcium Gluconate 15 meq/ Multivitamins 10 ml/Chromium/ Copper/Manganese/ Seleni/Zn 0.5 ml/ Insulin Human Regular 15 unit/ Total Parenteral Nutrition/Amino Acids/Dextrose/ Fat Emulsion Intravenous 1,400 ml @ 58.333 mls/ hr TPN CONT IV Last administered on 07/18/19at 21:47; Start 07/18/19 at 22:00; Stop 07/19/19 at 21:59; Status DC Sodium Chloride 90 meq/Potassium Chloride 15 meq/ Potassium Phosphate 18 mmol/ Magnesium Sulfate 8 meq/Calcium Gluconate 15 meq/ Multivitamins 10 ml/Chromium/ Copper/Manganese/ Seleni/Zn 0.5 ml/ Insulin Human Regular 20 unit/ Total Parenteral Nutrition/Amino Acids/Dextrose/ Fat Emulsion Intravenous 1,400 ml @ 58.333 mls/ hr TPN CONT IV Last administered on 07/19/19at 21:36; Start 07/19/19 at 22:00; Stop 07/20/19 at 21:59; Status DC Alteplase, Recombinant (Cathflo For Central Catheter Clearance) 1 mg 1X ONCE INT CAT Last administered on 07/19/19at 20:03; Start 07/19/19 at 19:30; Stop 07/19/19 at 19:46; Status DC Alteplase, Recombinant (Cathflo For Central Catheter Clearance) 1 mg 1X ONCE INT CAT Last administered on 07/19/19at 22:05; Start 07/19/19 at 22:00; Stop 07/19/19 at 22:01; Status DC Sodium Chloride 90 meq/Potassium Chloride 15 meq/ Potassium Phosphate 18 mmol/ Magnesium Sulfate 8 meq/Calcium Gluconate 15 meq/ Multivitamins 10 ml/Chromium/ Copper/Manganese/ Seleni/Zn 0.5 ml/ Insulin Human Regular 20 unit/ Total Parenteral Nutrition/Amino Acids/Dextrose/ Fat Emulsion Intravenous 1,400 ml @ 58.333 mls/ hr TPN CONT IV Last administered on 07/20/19at 21:30; Start 07/20/19 at 22:00; Stop 07/21/19 at 21:59; Status DC Dexmedetomidine HCl 400 mcg/ Sodium Chloride 100 ml @ 0 mls/hr CONT PRN IV ANXI ETY / AGITATION Last administered on 08/07/19at 07:36; Start 07/21/19 at 08:15 Sodium Chloride 500 ml @ 500 mls/hr 1X PRN PRN IV ELEVATED BP, SEE COMMENTS; Start 07/21/19 at 08:15 Atropine Sulfate (ATROPINE 0.5mg SYRINGE) 0.5 mg PRN Q5MIN PRN IV SEE COMMENTS; Start 07/21/19 at 08:15 Furosemide (Lasix) 20 mg 1X ONCE IVP Last administered on 07/21/19at 08:19; Start 07/21/19 at 08:15; Stop 07/21/19 at 08:16; Status DC Lidocaine HCl (Buffered Lidocaine 1%) 3 ml STK-MED ONCE .ROUTE ; Start 07/21/19 at 08:39; Stop 07/21/19 at 08:39; Status DC Lidocaine HCl (Buffered Lidocaine 1%) 6 ml 1X ONCE INJ Last administered on 07/21/19at 09:05; Start 07/21/19 at 09:00; Stop 07/21/19 at 09:06; Status DC Sodium Chloride 90 meq/Potassium Chloride 15 meq/ Potassium Phosphate 18 mmol/ Magnesium Sulfate 8 meq/Calcium Gluconate 15 meq/ Multivitamins 10 ml/Chromium/ Copper/Manganese/ Seleni/Zn 0.5 ml/ Insulin Human Regular 20 unit/ Total Parenteral Nutrition/Amino Acids/Dextrose/ Fat Emulsion Intravenous 1,400 ml @ 58.333 mls/ hr TPN CONT IV Last administered on 07/21/19at 22:45; Start 07/21/19 at 22:00; Stop 07/22/19 at 21:59; Status DC Sodium Chloride 1,000 ml @ 1,000 mls/hr Q1H PRN IV hypotension; Start 07/22/19 at 07:30; Stop 07/22/19 at 13:29; Status DC Albumin Human 200 ml @ 200 mls/hr 1X PRN PRN IV Hypotension Last administered on 07/22/19at 09:36; Start 07/22/19 at 07:30; Stop 07/22/19 at 13:29; Status DC Sodium Chloride (Normal Saline Flush) 10 ml 1X PRN PRN IV AP catheter pack; Start 07/22/19 at 07:30; Stop 07/22/19 at 21:29; Status DC Sodium Chloride (Normal Saline Flush) 10 ml 1X PRN PRN IV [employer] catheter pack; Start 07/22/19 at 07:30; Stop 07/23/19 at 07:29; Status DC Sodium Chloride 1,000 ml @ 400 mls/hr Q2H30M PRN IV PATENCY; Start 07/22/19 at 07:30; Stop 07/22/19 at 19:29; Status DC Info (PHARMACY MONITORING -- do not chart) 1 each PRN DAILY PRN MC SEE COMMENTS; Start 07/22/19 at 07:30; Stop 07/22/19 at 13:02; Status DC Info (PHARMACY MONITORING -- do not chart) 1 each PRN DAILY PRN MC SEE COMMENTS; Start 07/22/19 at 07:30; Stop 07/24/19 at 12:45; Status DC Sodium Chloride 90 meq/Potassium Chloride 15 meq/ Potassium Phosphate 10 mmol/ Magnesium Sulfate 8 meq/Calcium Gluconate 15 meq/ Multivitamins 10 ml/Chromium/ Copper/Manganese/ Seleni/Zn 0.5 ml/ Insulin Human Regular 25 unit/ Total Parenteral Nutrition/Amino Acids/Dextrose/ Fat Emulsion Intravenous 1,400 ml @ 58.333 mls/ hr TPN CONT IV Last administered on 07/22/19at 22:19; Start 07/22/19 at 22:00; Stop 07/23/19 at 21:59; Status DC Heparin Sodium (Porcine) (Heparin Sodium) 5,000 unit Q12HR SQ Last administered on 08/07/19at 08:23; Start 07/22/19 at 21:00 Ondansetron HCl (Zofran) 4 mg PRN Q6HRS PRN IV NAUSEA/VOMITING; Start 07/25/19 at 07:00; Stop 07/26/19 at 06:59; Status DC Fentanyl Citrate (Fentanyl 2ml Vial) 25 mcg PRN Q5MIN PRN IV MILD PAIN 1-3; Start 07/25/19 at 07:00; Stop 07/26/19 at 06:59; Status DC Fentanyl Citrate (Fentanyl 2ml Vial) 50 mcg PRN Q5MIN PRN IV MODERATE TO SEVERE PAIN; Start 07/25/19 at 07:00; Stop 07/26/19 at 06:59; Status DC Ringer's Solution 1,000 ml @ 30 mls/hr Q24H IV ; Start 07/25/19 at 07:00; Stop 07/25/19 at 18:59; Status DC Lidocaine HCl (Xylocaine-Mpf 1% 2ml Vial) 2 ml PRN 1X PRN ID PRIOR TO IV START; Start 07/25/19 at 07:00; Stop 07/26/19 at 06:59; Status DC Prochlorperazine Edisylate (Compazine) 5 mg PACU PRN PRN IV NAUSEA, MRX1; Start 07/25/19 at 07:00; Stop 07/26/19 at 06:59; Status DC Sodium Chloride 1,000 ml @ 1,000 mls/hr Q1H PRN IV hypotension; Start 07/23/19 at 09:10; Stop 07/23/19 at 15:09; Status DC Albumin Human 200 ml @ 200 mls/hr 1X PRN PRN IV Hypotension Last administered on 07/23/19at 10:10; Start 07/23/19 at 09:15; Stop 07/23/19 at 15:14; Status DC Sodium Chloride 1,000 ml @ 400 mls/hr Q2H30M PRN IV PATENCY; Start 07/23/19 at 09:10; Stop 07/23/19 at 21:09; Status DC Info (PHARMACY MONITORING -- do not chart) 1 each PRN DAILY PRN MC SEE COMMENTS; Start 07/23/19 at 09:15; Stop 07/24/19 at 12:45; Status DC Info (PHARMACY MONITORING -- do not chart) 1 each PRN DAILY PRN MC SEE COMMENTS; Start 07/23/19 at 09:15; Stop 07/24/19 at 12:45; Status DC Sodium Chloride 90 meq/Potassium Chloride 15 meq/ Potassium Phosphate 10 mmol/ Magnesium Sulfate 8 meq/Calcium Gluconate 15 meq/ Multivitamins 10 ml/Chromium/ Copper/Manganese/ Seleni/Zn 0.5 ml/ Insulin Human Regular 25 unit/ Total Parenteral Nutrition/Amino Acids/Dextrose/ Fat Emulsion Intravenous 1,400 ml @ 58.333 mls/ hr TPN CONT IV Last administered on 07/23/19at 22:10; Start 07/23/19 at 22:00; Stop 07/24/19 at 21:59; Status DC Magnesium Sulfate 50 ml @ 25 mls/hr PRN DAILY PRN IV for Mag < 1.7 on am labs; Start 07/24/19 at 09:15 Sodium Chloride 90 meq/Potassium Chloride 15 meq/ Potassium Phosphate 10 mmol/ Magnesium Sulfate 8 meq/Calcium Gluconate 15 meq/ Multivitamins 10 ml/Chromium/ Copper/Manganese/ Seleni/Zn 0.5 ml/ Insulin Human Regular 25 unit/ Total Parenteral Nutrition/Amino Acids/Dextrose/ Fat Emulsion Intravenous 1,400 ml @ 58.333 mls/ hr TPN CONT IV Last administered on 07/24/19at 21:20; Start 07/24/19 at 22:00; Stop 07/25/19 at 21:59; Status DC Sodium Chloride 1,000 ml @ 1,000 mls/hr Q1H PRN IV hypotension; Start 07/24/19 at 12:23; Stop 07/24/19 at 18:22; Status DC Albumin Human 200 ml @ 200 mls/hr 1X ONCE IV Last administered on 07/24/19at 13:34; Start 07/24/19 at 12:30; Stop 07/24/19 at 13:29; Status DC Diphenhydramine HCl (Benadryl) 25 mg 1X PRN PRN IV ITCHING; Start 07/24/19 at 12:30; Stop 07/25/19 at 12:29; Status DC Diphenhydramine HCl (Benadryl) 25 mg 1X PRN PRN IV ITCHING; Start 07/24/19 at 12:30; Stop 07/25/19 at 12:29; Status DC Info (PHARMACY MONITORING -- do not chart) 1 each PRN DAILY PRN MC SEE COMMENTS; Start 07/24/19 at 12:30; Status Cancel Bupivacaine HCl/ Epinephrine Bitart (Sensorcain-Epi 0.5%-1:[id number] Mpf) 30 ml STK-MED ONCE .ROUTE Last administered on 07/25/19at 11:44; Start 07/25/19 at 11:00; Stop 07/25/19 at 11:01; Status DC Cellulose (Surgicel Fibrillar 1x2) 1 each STK-MED ONCE .ROUTE ; Start 07/25/19 at 11:00; Stop 07/25/19 at 11:01; Status DC Sodium Chloride 90 meq/Potassium Chloride 15 meq/ Potassium Phosphate 10 mmol/ Magnesium Sulfate 12 meq/Calcium Gluconate 15 meq/ Multivitamins 10 ml/Chromium/ Copper/Manganese/ Seleni/Zn 0.5 ml/ Insulin Human Regular 25 unit/ Total Parenteral Nutrition/Amino Acids/Dextrose/ Fat Emulsion Intravenous 1,400 ml @ 58.333 mls/ hr TPN CONT IV Last administered on 07/25/19at 22:24; Start 07/25/19 at 22:00; Stop 07/26/19 at 21:59; Status DC Propofol 20 ml @ As Directed STK-MED ONCE IV ; Start 07/25/19 at 11:07; Stop 07/25/19 at 11:07; Status DC Cellulose (Surgicel Hemostat 4x8) 1 each STK-MED ONCE .ROUTE Last administered on 07/25/19at 11:44; Start 07/25/19 at 11:55; Stop 07/25/19 at 11:56; Status DC Sevoflurane (Ultane) 60 ml STK-MED ONCE IH ; Start 07/25/19 at 12:46; Stop 07/25/19 at 12:46; Status DC Sodium Chloride 1,000 ml @ 1,000 mls/hr Q1H PRN IV hypotension; Start 07/25/19 at 13:51; Stop 07/25/19 at 19:50; Status DC Albumin Human 200 ml @ 200 mls/hr 1X PRN PRN IV Hypotension Last administered on 07/25/19at 14:51; Start 07/25/19 at 14:00; Stop 07/25/19 at 19:59; Status DC Diphenhydramine HCl (Benadryl) 25 mg 1X PRN PRN IV ITCHING; Start 07/25/19 at 14:00; Stop 07/26/19 at 13:59; Status DC Diphenhydramine HCl (Benadryl) 25 mg 1X PRN PRN IV ITCHING; Start 07/25/19 at 1 4:00; Stop 07/26/19 at 13:59; Status DC Sodium Chloride 1,000 ml @ 400 mls/hr Q2H30M PRN IV PATENCY; Start 07/25/19 at 13:51; Stop 07/26/19 at 01:50; Status DC Info (PHARMACY MONITORING -- do not chart) 1 each PRN DAILY PRN MC SEE COMMENTS; Start 07/25/19 at 14:00; Stop 07/28/19 at 08:16; Status DC Heparin Sodium (Porcine) (Hep Lock Adult) 500 unit STK-MED ONCE IVP ; Start 07/26/19 at 09:29; Stop 07/26/19 at 09:30; Status DC Sodium Chloride 1,000 ml @ 1,000 mls/hr Q1H PRN IV hypotension; Start 07/26/19 at 10:43; Stop 07/26/19 at 16:42; Status DC Sodium Chloride 1,000 ml @ 400 mls/hr Q2H30M PRN IV PATENCY; Start 07/26/19 at 10:43; Stop 07/26/19 at 22:42; Status DC Info (PHARMACY MONITORING -- do not chart) 1 each PRN DAILY PRN MC SEE COMMENTS; Start 07/26/19 at 10:45; Status UNV Info (PHARMACY MONITORING -- do not chart) 1 each PRN DAILY PRN MC SEE COMMENTS; Start 07/26/19 at 10:45; Status UNV Sodium Chloride 90 meq/Potassium Chloride 15 meq/ Magnesium Sulfate 12 meq/Calcium Gluconate 15 meq/ Multivitamins 10 ml/Chromium/ Copper/Manganese/ Seleni/Zn 0.5 ml/ Insulin Human Regular 25 unit/ Total Parenteral Nutrition/Amino Acids/Dextrose/ Fat Emulsion Intravenous 1,400 ml @ 58.333 mls/ hr TPN CONT IV Last administered on 07/26/19at 22:13; Start 07/26/19 at 22:00; Stop 07/27/19 at 21:59; Status DC Sodium Chloride 1,000 ml @ 1,000 mls/hr Q1H PRN IV hypotension; Start 07/27/19 at 07:50; Stop 07/27/19 at 13:49; Status DC Albumin Human 200 ml @ 200 mls/hr 1X ONCE IV ; Start 07/27/19 at 08:00; Stop 07/27/19 at 08:53; Status DC Diphenhydramine HCl (Benadryl) 25 mg 1X PRN PRN IV ITCHING; Start 07/27/19 at 08:00; Stop 07/28/19 at 07:59; Status DC Diphenhydramine HCl (Benadryl) 25 mg 1X PRN PRN IV ITCHING; Start 07/27/19 at 08:00; Stop 07/28/19 at 07:59; Status DC Info (PHARMACY MONITORING -- do not chart) 1 each PRN DAILY PRN MC SEE COMMENTS; Start 07/27/19 at 08:00; Stop 07/28/19 at 08:16; Status DC Albumin Human 50 ml @ 50 mls/hr 1X ONCE IV ; Start 07/27/19 at 08:53; Stop 07/27/19 at 08:56; Status DC Albumin Human 200 ml @ 50 mls/hr PRN 1X PRN IV HYPOTENSION Last administered on 08/02/19at 11:54; Start 07/27/19 at 09:00 Meropenem 500 mg/ Sodium Chloride 50 ml @ 100 mls/hr Q12H IV Last administered on 08/06/19at 21:58; Start 07/27/19 at 10:00 Sodium Chloride 90 meq/Magnesium Sulfate 12 meq/ Calcium Gluconate 15 meq/ Multivitamins 10 ml/Chromium/ Copper/Manganese/ Seleni/Zn 0.5 ml/ Insulin Human Regular 25 unit/ Total Parenteral Nutrition/Amino Acids/Dextrose/ Fat Emulsion Intravenous 1,400 ml @ 58.333 mls/ hr TPN CONT IV Last administered on 07/27/19at 21:41; Start 07/27/19 at 22:00; Stop 07/28/19 at 21:59; Status DC Sodium Chloride 1,000 ml @ 1,000 mls/hr Q1H PRN IV hypotension; Start 07/28/19 at 07:58; Stop 07/28/19 at 13:57; Status DC Albumin Human 200 ml @ 200 mls/hr 1X PRN PRN IV Hypotension Last administered on 07/28/19at 09:30; Start 07/28/19 at 08:00; Stop 07/28/19 at 13:59; Status DC Sodium Chloride 1,000 ml @ 400 mls/hr Q2H30M PRN IV PATENCY; Start 07/28/19 at 07:58; Stop 07/28/19 at 19:57; Status DC Info (PHARMACY MONITORING -- do not chart) 1 each PRN DAILY PRN MC SEE COMMENTS; Start 07/28/19 at 08:00; Status Cancel Info (PHARMACY MONITORING -- do not chart) 1 each PRN DAILY PRN MC SEE COMMENTS; Start 07/28/19 at 08:15; Status UNV Sodium Chloride 90 meq/Potassium Phosphate 5 mmol/ Magnesium Sulfate 12 meq/Calcium Gluconate 15 meq/ Multivitamins 10 ml/Chromium/ Copper/Manganese/ Seleni/Zn 0.5 ml/ Insulin Human Regular 30 unit/ Total Parenteral Nutrition/Amino Acids/Dextrose/ Fat Emulsion Intravenous 1,400 ml @ 58.333 mls/ hr TPN CONT IV Last administered on 07/28/19at 22:08; Start 07/28/19 at 22:00; Stop 07/29/19 at 21:59; Status DC Linezolid/Dextrose 300 ml @ 300 mls/hr Q12HR IV Last administered on 08/07/19at 08:12; Start 07/29/19 at 11:00 Sodium Chloride 90 meq/Potassium Phosphate 15 mmol/ Magnesium Sulfate 12 meq/Calcium Gluconate 15 meq/ Multivitamins 10 ml/Chromium/ Copper/Manganese/ S thien/Zn 0.5 ml/ Insulin Human Regular 30 unit/ Total Parenteral Nutrition/Amino Acids/Dextrose/ Fat Emulsion Intravenous 1,400 ml @ 58.333 mls/ hr TPN CONT IV Last administered on 07/29/19at 21:49; Start 07/29/19 at 22:00; Stop 07/30/19 at 21:59; Status DC Sodium Chloride 90 meq/Potassium Phosphate 15 mmol/ Magnesium Sulfate 12 meq/Calcium Gluconate 15 meq/ Multivitamins 10 ml/Chromium/ Copper/Manganese/ Seleni/Zn 0.5 ml/ Insulin Human Regular 40 unit/ Total Parenteral Nutrition/Amino Acids/Dextrose/ Fat Emulsion Intravenous 1,400 ml @ 58.333 mls/ hr TPN CONT IV Last administered on 07/30/19at 21:21; Start 07/30/19 at 22:00; Stop 07/31/19 at 21:59; Status DC Sodium Chloride 1,000 ml @ 1,000 mls/hr Q1H PRN IV hypotension; Start 07/30/19 at 13:26; Stop 07/30/19 at 19:25; Status DC Albumin Human 200 ml @ 200 mls/hr 1X PRN PRN IV Hypotension Last administered on 07/30/19at 15:00; Start 07/30/19 at 13:30; Stop 07/30/19 at 19:29; Status DC Sodium Chloride (Normal Saline Flush) 10 ml 1X PRN PRN IV AP catheter pack; Start 07/30/19 at 13:30; Stop 07/31/19 at 13:29; Status DC Sodium Chloride (Normal Saline Flush) 10 ml 1X PRN PRN IV [employer] catheter pack; Start 07/30/19 at 13:30; Stop 07/31/19 at 13:29; Status DC Sodium Chloride 1,000 ml @ 400 mls/hr Q2H30M PRN IV PATENCY; Start 07/30/19 at 13:26; Stop 07/31/19 at 01:25; Status DC Info (PHARMACY MONITORING -- do not chart) 1 each PRN DAILY PRN MC SEE COMMENTS; Start 07/30/19 at 13:30; Stop 07/30/19 at 13:33; Status DC Info (PHARMACY MONITORING -- do not chart) 1 each PRN DAILY PRN MC SEE COMMENTS; Start 07/30/19 at 13:30; Stop 07/30/19 at 13:34; Status DC Sodium Chloride 90 meq/Potassium Phosphate 19 mmol/ Magnesium Sulfate 12 meq/Calcium Gluconate 15 meq/ Multivitamins 10 ml/Chromium/ Copper/Manganese/ Se dinorah/Zn 0.5 ml/ Insulin Human Regular 40 unit/ Total Parenteral Nutrition/Amino Acids/Dextrose/ Fat Emulsion Intravenous 1,400 ml @ 58.333 mls/ hr TPN CONT IV Last administered on 07/31/19at 21:54; Start 07/31/19 at 22:00; Stop 08/01/19 at 21:59; Status DC Sodium Chloride 1,000 ml @ 1,000 mls/hr Q1H PRN IV hypotension; Start 08/01/19 at 09:35; Stop 08/01/19 at 15:34; Status DC Albumin Human 200 ml @ 200 mls/hr 1X PRN PRN IV Hypotension; Start 08/01/19 at 09:45; Stop 08/01/19 at 15:44; Status DC Diphenhydramine HCl (Benadryl) 25 mg 1X PRN PRN IV ITCHING; Start 08/01/19 at 09:45; Stop 08/02/19 at 09:44; Status DC Diphenhydramine HCl (Benadryl) 25 mg 1X PRN PRN IV ITCHING; Start 08/01/19 at 09:45; Stop 08/02/19 at 09:44; Status DC Sodium Chloride 1,000 ml @ 400 mls/hr Q2H30M PRN IV PATENCY; Start 08/01/19 at 09:35; Stop 08/01/19 at 21:34; Status DC Info (PHARMACY MONITORING -- do not chart) 1 each PRN DAILY PRN MC SEE COMMENTS; Start 08/01/19 at 09:45; Status Cancel Sodium Chloride 100 meq/Potassium Phosphate 19 mmol/ Magnesium Sulfate 12 meq/Calcium Gluconate 15 meq/ Multivitamins 10 ml/Chromium/ Copper/Manganese/ Seleni/Zn 0.5 ml/ Insulin Human Regular 40 unit/ Potassium Chloride 20 meq/ Total Parenteral Nutrition/Amino Acids/Dextrose/ Fat Emulsion Intravenous 1,400 ml @ 58.333 mls/ hr TPN CONT IV Last administered on 08/01/19at 22:02; Start 08/01/19 at 22:00; Stop 08/02/19 at 21:59; Status DC Furosemide (Lasix) 40 mg 1X ONCE IVP Last administered on 08/01/19at 14:39; Start 08/01/19 at 14:30; Stop 08/01/19 at 14:31; Status DC Metronidazole 100 ml @ 100 mls/hr Q8HRS IV Last administered on 08/07/19at 06:16; Start 08/02/19 at 10:00 Sodium Chloride 1,000 ml @ 1,000 mls/hr Q1H PRN IV hypotension; Start 08/02/19 at 08:00; Stop 08/02/19 at 13:59; Status DC Albumin Human 200 ml @ 200 mls/hr 1X PRN PRN IV Hypotension; Start 08/02/19 at 08:00; Stop 08/02/19 at 13:59; Status DC Sodium Chloride 1,000 ml @ 400 mls/hr Q2H30M PRN IV PATENCY; Start 08/02/19 at 08:00; Stop 08/02/19 at 19:59; Status DC Info (PHARMACY MONITORING -- do not chart) 1 each PRN DAILY PRN MC SEE COMMENTS; Start 08/02/19 at 11:30; Status UNV Info (PHARMACY MONITORING -- do not chart) 1 each PRN DAILY PRN MC SEE COMMENTS; Start 08/02/19 at 11:30; Stop 08/04/19 at 12:13; Status DC Sodium Chloride 100 meq/Potassium Phosphate 19 mmol/ Magnesium Sulfate 12 meq/Calcium Gluconate 15 meq/ Multivitamins 10 ml/Chromium/ Copper/Manganese/ Seleni/Zn 0.5 ml/ Insulin Human Regular 40 unit/ Potassium Chloride 20 meq/ Total Parenteral Nutrition/Amino Acids/Dextrose/ Fat Emulsion Intravenous 1,400 ml @ 58.333 mls/ hr TPN CONT IV Last administered on 08/02/19at 21:52; Start 08/02/19 at 22:00; Stop 08/03/19 at 21:59; Status DC Sodium Chloride (Normal Saline Flush) 10 ml QSHIFT PRN IV AFTER MEDS AND BLOOD DRAWS; Start 08/02/19 at 15:00 Sodium Chloride (Normal Saline Flush) 10 ml PRN Q5MIN PRN IV AFTER MEDS AND BLOOD DRAWS; Start 08/02/19 at 15:00 Sodium Chloride (Normal Saline Flush) 20 ml PRN Q5MIN PRN IV AFTER MEDS AND BLOOD DRAWS; Start 08/02/19 at 15:00 Sodium Chloride 100 meq/Potassium Phosphate 19 mmol/ Magnesium Sulfate 12 meq/Calcium Gluconate 15 meq/ Multivitamins 10 ml/Chromium/ Copper/Manganese/ Seleni/Zn 0.5 ml/ Insulin Human Regular 40 unit/ Potassium Chloride 20 meq/ Total Parenteral Nutrition/Amino Acids/Dextrose/ Fat Emulsion Intravenous 1,400 ml @ 58.333 mls/ hr TPN CONT IV Last administered on 08/03/19at 21:20; Start 08/03/19 at 22:00; Stop 08/04/19 at 21:59; Status DC Lidocaine HCl (Buffered Lidocaine 1%) 3 ml STK-MED ONCE .ROUTE ; Start 08/03/19 at 13:16; Stop 08/03/19 at 13:16; Status DC Lidocaine HCl (Buffered Lidocaine 1%) 6 ml 1X ONCE INJ Last administered on 08/03/19at 13:45; Start 08/03/19 at 13:30; Stop 08/03/19 at 13:31; Status DC Albumin Human 100 ml @ 100 mls/hr 1X ONCE IV Last administered on 08/03/19at 15:41; Start 08/03/19 at 15:00; Stop 08/03/19 at 15:59; Status DC Albumin Human 50 ml @ 50 mls/hr 1X ONCE IV Last administered on 08/03/19at 15:00; Start 08/03/19 at 15:00; Stop 08/03/19 at 15:59; Status DC Info (PHARMACY MONITORING -- do not chart) 1 each PRN DAILY PRN MC SEE COMMENTS; Start 08/04/19 at 11:30; Status Cancel Info (PHARMACY MONITORING -- do not chart) 1 each PRN DAILY PRN MC SEE COMMENTS; Start 08/04/19 at 11:30; Status UNV Sodium Chloride 100 meq/Potassium Phosphate 10 mmol/ Magnesium Sulfate 12 meq/Calcium Gluconate 15 meq/ Multivitamins 10 ml/Chromium/ Copper/Manganese/ Seleni/Zn 0.5 ml/ Insulin Human Regular 35 unit/ Potassium Chloride 20 meq/ Total Parenteral Nutrition/Amino Acids/Dextrose/ Fat Emulsion Intravenous 1,400 ml @ 58.333 mls/ hr TPN CONT IV Last administered on 08/04/19at 22:10; Start 08/04/19 at 22:00; Stop 08/05/19 at 21:59; Status DC Sodium Chloride 100 meq/Potassium Phosphate 5 mmol/ Magnesium Sulfate 12 meq/Calcium Gluconate 15 meq/ Multivitamins 10 ml/Chromium/ Copper/Manganese/ Seleni/Zn 0.5 ml/ Insulin Human Regular 35 unit/ Potassium Chloride 20 meq/ Total Parenteral Nutrition/Amino Acids/Dextrose/ Fat Emulsion Intravenous 1,400 ml @ 58.333 mls/ hr TPN CONT IV Last administered on 08/05/19at 22:59; Start 08/05/19 at 22:00; Stop 08/06/19 at 21:59; Status DC Sodium Chloride 1,000 ml @ 1,000 mls/hr Q1H PRN IV hypotension; Start 08/06/19 at 08:27; Stop 08/06/19 at 14:26; Status DC Albumin Human 200 ml @ 200 mls/hr 1X PRN PRN IV Hypotension Last administered on 08/06/19at 09:18; Start 08/06/19 at 08:30; Stop 08/06/19 at 14:29; Status DC Sodium Chloride 1,000 ml @ 400 mls/hr Q2H30M PRN IV PATENCY; Start 08/06/19 at 08:27; Stop 08/06/19 at 20:26; Status DC Info (PHARMACY MONITORING -- do not chart) 1 each PRN DAILY PRN MC SEE COMMENTS; Start 08/06/19 at 08:30; Status Cancel Info (PHARMACY MONITORING -- do not chart) 1 each PRN DAILY PRN MC SEE COMMENTS; Start 08/06/19 at 08:30 Sodium Chloride 100 meq/Potassium Chloride 40 meq/ Magnesium Sulfate 15 meq/Calcium Gluconate 15 meq/ Multivitamins 10 ml/Chromium/ Copper/Manganese/ Seleni/Zn 0.5 ml/ Insulin Human Regular 35 unit/ Total Parenteral Nutrition/Amino Acids/Dextrose/ Fat Emulsion Intravenous 1,400 ml @ 58.333 mls/ hr TPN CONT IV Last administered on 08/06/19at 22:00; Start 08/06/19 at 22:00; Stop 08/07/19 at 21:59 Potassium Chloride/Water 100 ml @ 100 mls/hr 1X ONCE IV Last administered on 08/06/19at 17:28; Start 08/06/19 at 14:45; Stop 08/06/19 at 15:44; Status DC Active Scripts Active Reported Bisoprolol Fumarate 5 Mg Tablet 10 Mg PO DAILY Vitals/I & O Vital Sign - Last 24 Hours 08/06/19 08/06/19 08/06/19 08/06/19 09:00 10:00 11:00 11:18 Pulse 154 166 146 Resp 30 24 B/P (MAP) 171/80 (110) 185/98 (127) 167/80 (109) Pulse Ox 100 100 100 99 O2 Delivery Ventilator Ventilator Ventilator [facility] 08/06/19 08/06/19 08/06/19 08/06/19 12:00 12:00 13:00 13:51 Temp 99.4 99.4 Pulse 97 86 Resp 20 26 B/P (MAP) 117/78 (91) 138/62 (87) Pulse Ox 100 100 98 O2 Delivery Ventilator Mechanical Ventilator Ventilator [facility] 08/06/19 08/06/19 08/06/19 08/06/19 14:00 15:00 15:55 16:00 Pulse 102 102 Resp 28 B/P (MAP) 122/68 (86) 98/59 (72) Pulse Ox 100 100 100 O2 Delivery Ventilator Ventilator Ventilator Mechanical Ventilator 08/06/19 08/06/19 08/06/19 08/06/19 16:00 17:00 18:00 19:00 Temp 99.6 99.6 Pulse 84 91 93 92 Resp 28 26 20 23 B/P (MAP) 110/63 (79) 134/75 (94) 106/56 (73) 98/56 (70) Pulse Ox 100 100 100 100 O2 Delivery Ventilator Ventilator Ventilator Ventilator 08/06/19 08/06/19 08/06/19 08/06/19 19:35 20:00 20:00 21:00 Temp 100.5 100.5 Pulse 88 88 Resp 20 20 B/P (MAP) 110/53 (72) 136/66 (89) Pulse Ox 100 100 100 O2 Delivery Ventilator Mechanical Ventilator Ventilator Ventilator 08/06/19 08/06/19 08/06/19 08/07/19 22:00 23:00 23:34 00:00 Temp 98.5 98.5 Pulse 104 96 96 Resp 36 33 35 B/P (MAP) 137/82 (100) 139/74 (95) 135/82 (99) Pulse Ox 100 99 100 99 O2 Delivery Ventilator Ventilator Ventilator Ventilator 08/07/19 08/07/19 08/07/19 08/07/19 00:00 01:00 02:00 02:59 Pulse 90 86 Resp 30 24 B/P (MAP) 133/74 (93) 122/74 (90) Pulse Ox 100 100 100 O2 Delivery Mechanical Ventilator Ventilator Ventilator Ventilator 08/07/19 08/07/19 08/07/19 08/07/19 03:00 04:00 04:00 05:00 Temp 98.9 98.9 Pulse 88 90 98 Resp 20 19 23 B/P (MAP) 153/82 (105) 119/68 (85) 141/78 (99) Pulse Ox 100 100 100 O2 Delivery Ventilator Ventilator Mechanical Ventilator Ventilator 08/07/19 08/07/19 08/07/19 08/07/19 05:27 06:00 07:00 07:30 Pulse 92 95 Resp 18 18 B/P (MAP) 129/78 (95) 126/69 (88) Pulse Ox 100 100 100 100 O2 Delivery Ventilator Ventilator Ventilator Ventilator 08/07/19 08/07/19 08/07/19 07:37 07:43 08:00 O2 Delivery Ventilator Ventilator Mechanical Ventilator Intake and Output 08/06/19 08/06/19 08/07/19 15:00 23:00 07:00 Intake Total 3319.84 ml 438 ml Output Total 340 ml 255 ml 565 ml Balance -340 ml 3064.84 ml -127 ml Hemodynamically unstable?: No Is patient in severe pain?: No Is NPO status required?: Yes DAVIN LANDEROS MD Aug 07, 2019 08:52
--- NOTE | 2019-08-07 08:58 | NUR ---
CPAP trial at 0800. Pressure support of 20/5, RR in 40's, Vt 250. Patient anxious, unable to calm down. Switched back to AC mode 0805. Will try again a little later. Will monitor.
[2019-08-07] MEDS: MEROPENEM 500 MG in IV NORMAL SALINE 50ML 50 ML IV SCH ×2 (09:11→22:33)
[2019-08-07] MEDS: TPN PER PHARMACY MC PRN (09:17)
--- NOTE | 2019-08-07 09:26 | NUR ---
Pharmacy TPN Dosing Note S: SCOTT AVILA is a 48 year old F Currently receiving Central Continuous TPN started 07/06/19 B:Pertinent PMH: Necrotizing pancreatitis Height: 5 feet, 8 inches Weight: 105.2 kg Current diet: NPO LABS: Sodium: 140 Potassium: 3.8 Chloride: 103 Calcium: 8.4 Corrected Calcium: 9.36 Magnesium: 1.8 CO2: 27 SCr: 1.4 Glucose: 126-147 Albumin: 2.8 AST: 23 ALT: 11 TPN FORMULA: TPN TYPE: Central Continuous AMINO ACIDS: 125 gm DEXTROSE: 225 gm LIPIDS: 20 gm SODIUM CHLORIDE: 100 mEq POTASSIUM CHLORIDE: 40 mEq MAGNESIUM: 15 mEq CALCIUM: 15 mEq INSULIN: 35 units MULTIPLE VITAMIN: 10 ml TRACE ELEMENTS: 0.5 ml(s) TPN PLAN: Continue same. R: Continue TPN Will monitor electrolytes, glucose, and tolerance to TPN. Raeann Mcdonnell RPH, 08/07/19 [id number]
--- NOTE | 2019-08-07 10:06 | PDOC ---
Infectious Disease Note Subjective Subjective Not feeling well Remains on vent via trach, FiO2 35 % PEEP 5 SpO2 100% TPN Fever 100.5 last evening ROS ROS per HPI Vital Sign Vital Signs Vital Signs Date Time Temp Pulse Resp B/P (MAP) Pulse Ox O2 Delivery O2 Flow Rate FiO2 08/07/19 08:00 99.0 85 24 110/61 (77) 100 Ventilator 99.0 Physical Exam PHYSICAL EXAM GENERAL: Propped up in bed, resting quietly, arouses to voice HEENT: Pupils equal, + NGT, oral cavity dry NECK: Trach/vent LUNGS: rhonchi HEART: S1, S2, regular ABDOMEN: Distended, tender, hypoactive BS, : Lind (08/01) EXTREMITIES: Generalized edema, no cyanosis, SCDs bilaterally DERMATOLOGIC: Warm and dry. No generalized rash. CENTRAL NERVOUS SYSTEM: Nods appropriately to few questions, HDC & LIJ (08/01) clean Labs Lab Laboratory Tests Test 08/06/19 14:41 08/06/19 18:13 08/07/19 00:57 08/07/19 06:50 Glucose (Fingerstick) 134 mg/dL (70-99) 135 mg/dL (70-99) 147 mg/dL (70-99) White Blood Count 6.9 x10^3/uL (4.0-11.0) Red Blood Count 2.28 x10^6/uL (3.50-5.40) Hemoglobin 7.0 g/dL (12.0-15.5) Hematocrit 21.2 % (36.0-47.0) Mean Corpuscular Volume 93 fL (79-100) Mean Corpuscular Hemoglobin 31 pg (25-35) Mean Corpuscular Hemoglobin Concent 33 g/dL (31-37) Red Cell Distribution Width 18.5 % (11.5-14.5) Platelet Count 497 x10^3/uL (140-400) Neutrophils (%) (Auto) 76 % (31-73) Lymphocytes (%) (Auto) 12 % (24-48) Monocytes (%) (Auto) 11 % (0-9) Eosinophils (%) (Auto) 0 % (0-3) Basophils (%) (Auto) 0 % (0-3) Neutrophils # (Auto) 5.3 x10^3/uL (1.8-7.7) Lymphocytes # (Auto) 0.8 x10^3/uL (1.0-4.8) Monocytes # (Auto) 0.8 x10^3/uL (0.0-1.1) Eosinophils # (Auto) 0.0 x10^3/uL (0.0-0.7) Basophils # (Auto) 0.0 x10^3/uL (0.0-0.2) Sodium Level 140 mmol/L (136-145) Potassium Level 3.8 mmol/L (3.5-5.1) Chloride Level 103 mmol/L (98-107) Carbon Dioxide Level 27 mmol/L (21-32) Anion Gap 10 (6-14) Blood Urea Nitrogen 65 mg/dL (7-20) Creatinine 1.4 mg/dL (0.6-1.0) Estimated GFR (Cockcroft-Gault) 40.0 BUN/Creatinine Ratio 46 (6-20) Glucose Level 136 mg/dL (70-99) Calcium Level 8.4 mg/dL (8.5-10.1) Magnesium Level 1.8 mg/dL (1.8-2.4) Total Bilirubin 0.5 mg/dL (0.2-1.0) Aspartate Amino Transf (AST/SGOT) 21 U/L (15-37) Alanine Aminotransferase (ALT/SGPT) 11 U/L (14-59) Alkaline Phosphatase 47 U/L (46-116) Total Protein 5.2 g/dL (6.4-8.2) Albumin 2.8 g/dL (3.4-5.0) Albumin/Globulin Ratio 1.2 (1.0-1.7) Test 08/07/19 06:58 Glucose (Fingerstick) 126 mg/dL (70-99) CXR, 08/06 Tracheostomy tube with no pneumothorax but bilateral pleural effusions and worsening bilateral atelectasis/airspace opacities. Micro Abdominal fluid, 08/02 ANAEROBIC RES 1 PENDING AEROBIC CULT Preliminary Preliminary report AEROBIC RES 1 Preliminary Comment No growth in 36 - 48 hours. Objective Assessment Leukocytosis 07/28 -improved Fever - New left IJ/Lind 08/01. PICC removed 08/01 -? pancreatitis. blood cults 07/28 neg. Urine - neg, Ascites s/p paracentesis 08/02 - 4300 ml. cultures neg to date Severe acute gallstone pancreatitis with necrosis -CT 08/01 necrotizing pancreatitis with fluid and phlegmon at the pancreas Hypotension off levaphed Joseph Pleural effusions JUANA requiring HD - s/p RIJ temporary dialysis catheter replacement, 07/20 Vent dependent respiratory failure -s/p Trach placement -lung opacities, COVID-19 neg Anasarca - worse Anemia - S/p PRBC 07/13 Hypocalcemia Prediabetes HTN Diarrhea, C. diff neg 07/10 Anemia - S/p PRBCs Plan Plan of Care cont merrem (07/26) and Zyvox (07/28),micafungin, Flagyl 08/01 -previously on cefepime, flagyl & dapto Gen surgery following Maintain aspiration precautions Anemia deferred to primary CBC in am Critically ill D/w mother - explained Fever likely sec to pancreatitis and or /Ileus - D/w Dr. Servin earlier in week. abd again a little more distended today. May need thoracentesis vs sec paracentesis. Await pulm and GI f/u labs in am D/w nursing Attending Co-Sign Attending Co-Sign The patient was seen and interviewed as well as examined at the bedside. The chart was reviewed. The case was discussed. Agree with the plan of care. FRANCA HOBSON APRN Aug 07, 2019 10:05 WILLY BARAKAT MD Aug 07, 2019 14:54
[2019-08-07] MEDS: PROCHLORPERAZINE 10 MG/2 ML VIAL. IV PRN (10:33)
[2019-08-07 12:17] LABS: BASE EXCESS ABG 1 mmol/L (-3-3); HCO3 ABG 25 mmol/L (21-28); PCO2 ABG 36 mmHg (35-46); PO2 ABG 88 mmHg (75-108); SAT O2 ABG 96 % (92-99)
[2019-08-07 12:19] LABS: FIO2 ABG 35%+5PEEP
[2019-08-07] MEDS: ACETAMINOPHEN 650 MG SUPP.RECT. PR PRN (21:16)
[2019-08-07] MEDS ORDERED: AMINO ACID IV SCH ×10 (22:00)
[2019-08-07] MEDS ORDERED: DEXTROSE 70% IV SCH ×10 (22:00)
[2019-08-07] MEDS ORDERED: [UNRECOGNIZED DRUG - OTHER] IV SCH ×10 (22:00)
[2019-08-07] MEDS ORDERED: TOTAL PARENTERAL NUTRITION IV SCH ×10 (22:00)
[2019-08-08] VITALS (24 sets, daily range): BP systolic 111–166; BP diastolic 58–86
[2019-08-08] MEDS: DEXMEDETOMIDINE 400 MCG in IV NORMAL SALINE 100ML 96 ML IV PRN ×8 (02:08→23:42)
[2019-08-08] MEDS: ONDANSETRON PF 4 MG/2 ML VIAL. IV PRN ×2 (03:11→17:34)
[2019-08-08] MEDS: INSULIN LISPRO 300 UNITS/3 ML VIAL. SQ SCH ×4 (06:00→18:00)
[2019-08-08 06:11] LABS: BASO % 0 % (0-3); EOS % 0 % (0-3); HEMATOCRIT 23.3 % (36.0-47.0); HEMOGLOBIN 7.7 g/dL (12.0-15.5); LYMPH # 1.6 x10^3/uL (1.0-4.8); LYMPH % 15 % (24-48); MEAN CORPUSCULAR HEMOGLOBIN 31 pg (25-35); MEAN CORPUSCULAR HGB CONC 33 g/dL (31-37); MEAN CORPUSCULAR VOLUME 93 fL (79-100); MONO % 10 % (0-9); NEUT # 7.8 x10^3/uL (1.8-7.7); NEUT % 75 % (31-73); PLATELET COUNT 545 x10^3/uL (140-400); RED CELL DISTRIBUTION WIDTH 18.1 % (11.5-14.5); WHITE BLOOD COUNT 10.4 x10^3/uL (4.0-11.0)
[2019-08-08 06:23] LABS: CALCIUM 8.8 mg/dL (8.5-10.1); CREATININE 1.6 mg/dL (0.6-1.0); GFR 34.3; MAGNESIUM 1.7 mg/dL (1.8-2.4); POTASSIUM 3.8 mmol/L (3.5-5.1)
--- NOTE | 2019-08-08 07:50 | NUR ---
Pt has been febrile most of the night and Tylenol was given. Got patient up to a chair at 0505 and she sat up until 0600. Tolerated the chair well. She was transferred to the Cardiac chair with assist of four. Resting comfortably now.
--- NOTE | 2019-08-08 08:55 | PDOC ---
Infectious Disease Note Subjective Subjective Not feeling well Remains on vent via trach, FiO2 35 % PEEP 5 SpO2 100% TPN Fever 100.5 last evening Vital Sign Vital Signs Vital Signs Date Time Temp Pulse Resp B/P (MAP) Pulse Ox O2 Delivery O2 Flow Rate FiO2 08/08/19 08:03 100 Ventilator 08/08/19 07:00 106 20 127/60 (82) 08/08/19 04:00 100.8 100.8 Physical Exam PHYSICAL EXAM GENERAL: Propped up in bed, resting quietly, arouses to voice HEENT: Pupils equal, + NGT, oral cavity dry NECK: Trach/vent LUNGS: rhonchi HEART: S1, S2, regular ABDOMEN: Distended, tender, hypoactive BS, : Lind (08/01) EXTREMITIES: Generalized edema, no cyanosis, SCDs bilaterally DERMATOLOGIC: Warm and dry. No generalized rash. CENTRAL NERVOUS SYSTEM: Nods appropriately to few questions, HDC & LIJ (08/01) clean Labs Lab Laboratory Tests Test 08/07/19 11:30 08/07/19 11:50 08/07/19 17:24 08/08/19 00:41 O2 Saturation 96 % (92-99) Arterial Blood pH 7.47 (7.35-7.45) Arterial Blood pCO2 at Patient Temp 36 mmHg (35-46) Arterial Blood pO2 at Patient Temp 88 mmHg (75-108) Arterial Blood HCO3 25 mmol/L (21-28) Arterial Blood Base Excess 1 mmol/L (-3-3) FiO2 35%+5peep Glucose (Fingerstick) 165 mg/dL (70-99) 117 mg/dL (70-99) 147 mg/dL (70-99) Test 08/08/19 05:50 08/08/19 06:37 White Blood Count 10.4 x10^3/uL (4.0-11.0) Red Blood Count 2.50 x10^6/uL (3.50-5.40) Hemoglobin 7.7 g/dL (12.0-15.5) Hematocrit 23.3 % (36.0-47.0) Mean Corpuscular Volume 93 fL (79-100) Mean Corpuscular Hemoglobin 31 pg (25-35) Mean Corpuscular Hemoglobin Concent 33 g/dL (31-37) Red Cell Distribution Width 18.1 % (11.5-14.5) Platelet Count 545 x10^3/uL (140-400) Neutrophils (%) (Auto) 75 % (31-73) Lymphocytes (%) (Auto) 15 % (24-48) Monocytes (%) (Auto) 10 % (0-9) Eosinophils (%) (Auto) 0 % (0-3) Basophils (%) (Auto) 0 % (0-3) Neutrophils # (Auto) 7.8 x10^3/uL (1.8-7.7) Lymphocytes # (Auto) 1.6 x10^3/uL (1.0-4.8) Monocytes # (Auto) 1.0 x10^3/uL (0.0-1.1) Eosinophils # (Auto) 0.0 x10^3/uL (0.0-0.7) Basophils # (Auto) 0.0 x10^3/uL (0.0-0.2) Sodium Level 141 mmol/L (136-145) Potassium Level 3.8 mmol/L (3.5-5.1) Chloride Level 104 mmol/L (98-107) Carbon Dioxide Level 25 mmol/L (21-32) Anion Gap 12 (6-14) Blood Urea Nitrogen 76 mg/dL (7-20) Creatinine 1.6 mg/dL (0.6-1.0) Estimated GFR (Cockcroft-Gault) 34.3 Glucose Level 133 mg/dL (70-99) Calcium Level 8.8 mg/dL (8.5-10.1) Phosphorus Level 4.0 mg/dL (2.6-4.7) Magnesium Level 1.7 mg/dL (1.8-2.4) Triglycerides Level 144 mg/dL (0-150) Glucose (Fingerstick) 136 mg/dL (70-99) Micro Microbiology 07/12/19 Blood Culture - Final, Complete NO GROWTH AFTER 5 DAYS Objective Assessment Leukocytosis 07/28 -improved Fever - New left IJ/Lind 08/01. PICC removed 08/01 -? pancreatitis. blood cults 07/28 neg. Urine - neg, Ascites s/p paracentesis 08/02 - 4300 ml. cultures neg to date Severe acute gallstone pancreatitis with necrosis -CT 08/01 necrotizing pancreatitis with fluid and phlegmon at the pancreas Hypotension off levaphed Joseph Pleural effusions JUANA requiring HD - s/p RIJ temporary dialysis catheter replacement, 4/ Vent dependent respiratory failure -s/p Trach placement -lung opacities, COVID-19 neg Anasarca - worse Anemia - S/p PRBC 07/13 Hypocalcemia Prediabetes HTN Diarrhea, C. diff neg 07/10 Anemia - S/p PRBCs Plan Plan of Care cont merrem (07/26) and Zyvox (07/28),micafungin, Flagyl 08/01 -previously on cefepime, flagyl & dapto Gen surgery following Maintain aspiration precautions Anemia deferred to primary CBC in am Critically ill D/w mother - explained Fever likely sec to pancreatitis and or /Ileus - D/w Dr. Servin earlier in week. abd again a little more distended today. May need thoracentesis vs sec paracentesis. Await pulm and GI f/u labs in am D/w nursing KIMMY JONES MD Aug 08, 2019 08:55
[2019-08-08] MEDS: PANTOPRAZOLE IV PUSH 40 MG VIAL. IVP SCH (09:16)
[2019-08-08] MEDS: MICAFUNGIN 100 MG in IV DEXTROSE 5% 100ML 100 ML IV SCH (09:16)
[2019-08-08] MEDS: MEROPENEM 500 MG in IV NORMAL SALINE 50ML 50 ML IV SCH ×2 (09:17→22:17)
[2019-08-08] MEDS: HEPARIN for SUB-Q USE 5,000 UNIT/ML VIAL. SQ SCH ×2 (09:21→21:30)
--- NOTE | 2019-08-08 09:22 | PDOC ---
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 CASHIER PAYMENTS RECEIVED 08/08/19 0922: SURGICAL PROGRESS NOTE Subjective awake on vent easily falls asleep Vital Signs Vital Signs Date Time Temp Pulse Resp B/P (MAP) Pulse Ox O2 Delivery O2 Flow Rate FiO2 08/08/19 08:03 100 Ventilator 08/08/19 07:00 106 20 127/60 (82) 08/08/19 04:00 100.8 100.8 I&O Intake and Output 08/08/19 07:00 Intake Total 3962.19 ml Output Total 1985 ml Balance 1977.19 ml Intake Oral 0 ml IV Total 3722.19 ml Other 240 ml Output Urine Total 1935 ml Gastric Drainage Total 50 ml General: No acute distress HEENT: Other (trach intact) Abdomen: Other (distended ) Labs Laboratory Tests Test 08/06/19 14:41 08/06/19 18:13 08/07/19 00:57 08/07/19 06:50 Glucose (Fingerstick) 134 mg/dL (70-99) 135 mg/dL (70-99) 147 mg/dL (70-99) White Blood Count 6.9 x10^3/uL (4.0-11.0) Red Blood Count 2.28 x10^6/uL (3.50-5.40) Hemoglobin 7.0 g/dL (12.0-15.5) Hematocrit 21.2 % (36.0-47.0) Mean Corpuscular Volume 93 fL (79-100) Mean Corpuscular Hemoglobin 31 pg (25-35) Mean Corpuscular Hemoglobin Concent 33 g/dL (31-37) Red Cell Distribution Width 18.5 % (11.5-14.5) Platelet Count 497 x10^3/uL (140-400) Neutrophils (%) (Auto) 76 % (31-73) Lymphocytes (%) (Auto) 12 % (24-48) Monocytes (%) (Auto) 11 % (0-9) Eosinophils (%) (Auto) 0 % (0-3) Basophils (%) (Auto) 0 % (0-3) Neutrophils # (Auto) 5.3 x10^3/uL (1.8-7.7) Lymphocytes # (Auto) 0.8 x10^3/uL (1.0-4.8) Monocytes # (Auto) 0.8 x10^3/uL (0.0-1.1) Eosinophils # (Auto) 0.0 x10^3/uL (0.0-0.7) Basophils # (Auto) 0.0 x10^3/uL (0.0-0.2) Sodium Level 140 mmol/L (136-145) Potassium Level 3.8 mmol/L (3.5-5.1) Chloride Level 103 mmol/L (98-107) Carbon Dioxide Level 27 mmol/L (21-32) Anion Gap 10 (6-14) Blood Urea Nitrogen 65 mg/dL (7-20) Creatinine 1.4 mg/dL (0.6-1.0) Estimated GFR (Cockcroft-Gault) 40.0 BUN/Creatinine Ratio 46 (6-20) Glucose Level 136 mg/dL (70-99) Calcium Level 8.4 mg/dL (8.5-10.1) Magnesium Level 1.8 mg/dL (1.8-2.4) Total Bilirubin 0.5 mg/dL (0.2-1.0) Aspartate Amino Transf (AST/SGOT) 21 U/L (15-37) Alanine Aminotransferase (ALT/SGPT) 11 U/L (14-59) Alkaline Phosphatase 47 U/L (46-116) Total Protein 5.2 g/dL (6.4-8.2) Albumin 2.8 g/dL (3.4-5.0) Albumin/Globulin Ratio 1.2 (1.0-1.7) Test 08/07/19 06:58 08/07/19 11:30 08/07/19 11:50 08/07/19 17:24 Glucose (Fingerstick) 126 mg/dL (70-99) 165 mg/dL (70-99) 117 mg/dL (70-99) O2 Saturation 96 % (92-99) Arterial Blood pH 7.47 (7.35-7.45) Arterial Blood pCO2 at Patient Temp 36 mmHg (35-46) Arterial Blood pO2 at Patient Temp 88 mmHg (75-108) Arterial Blood HCO3 25 mmol/L (21-28) Arterial Blood Base Excess 1 mmol/L (-3-3) FiO2 35%+5peep Test 08/08/19 00:41 08/08/19 05:50 08/08/19 06:37 Glucose (Fingerstick) 147 mg/dL (70-99) 136 mg/dL (70-99) White Blood Count 10.4 x10^3/uL (4.0-11.0) Red Blood Count 2.50 x10^6/uL (3.50-5.40) Hemoglobin 7.7 g/dL (12.0-15.5) Hematocrit 23.3 % (36.0-47.0) Mean Corpuscular Volume 93 fL (79-100) Mean Corpuscular Hemoglobin 31 pg (25-35) Mean Corpuscular Hemoglobin Concent 33 g/dL (31-37) Red Cell Distribution Width 18.1 % (11.5-14.5) Platelet Count 545 x10^3/uL (140-400) Neutrophils (%) (Auto) 75 % (31-73) Lymphocytes (%) (Auto) 15 % (24-48) Monocytes (%) (Auto) 10 % (0-9) Eosinophils (%) (Auto) 0 % (0-3) Basophils (%) (Auto) 0 % (0-3) Neutrophils # (Auto) 7.8 x10^3/uL (1.8-7.7) Lymphocytes # (Auto) 1.6 x10^3/uL (1.0-4.8) Monocytes # (Auto) 1.0 x10^3/uL (0.0-1.1) Eosinophils # (Auto) 0.0 x10^3/uL (0.0-0.7) Basophils # (Auto) 0.0 x10^3/uL (0.0-0.2) Sodium Level 141 mmol/L (136-145) Potassium Level 3.8 mmol/L (3.5-5.1) Chloride Level 104 mmol/L (98-107) Carbon Dioxide Level 25 mmol/L (21-32) Anion Gap 12 (6-14) Blood Urea Nitrogen 76 mg/dL (7-20) Creatinine 1.6 mg/dL (0.6-1.0) Estimated GFR (Cockcroft-Gault) 34.3 Glucose Level 133 mg/dL (70-99) Calcium Level 8.8 mg/dL (8.5-10.1) Phosphorus Level 4.0 mg/dL (2.6-4.7) Magnesium Level 1.7 mg/dL (1.8-2.4) Triglycerides Level 144 mg/dL (0-150) Laboratory Tests Test 08/07/19 11:30 08/07/19 11:50 08/07/19 17:24 08/08/19 00:41 O2 Saturation 96 % (92-99) Arterial Blood pH 7.47 (7.35-7.45) Arterial Blood pCO2 at Patient Temp 36 mmHg (35-46) Arterial Blood pO2 at Patient Temp 88 mmHg (75-108) Arterial Blood HCO3 25 mmol/L (21-28) Arterial Blood Base Excess 1 mmol/L (-3-3) FiO2 35%+5peep Glucose (Fingerstick) 165 mg/dL (70-99) 117 mg/dL (70-99) 147 mg/dL (70-99) Test 08/08/19 05:50 08/08/19 06:37 White Blood Count 10.4 x10^3/uL (4.0-11.0) Red Blood Count 2.50 x10^6/uL (3.50-5.40) Hemoglobin 7.7 g/dL (12.0-15.5) Hematocrit 23.3 % (36.0-47.0) Mean Corpuscular Volume 93 fL (79-100) Mean Corpuscular Hemoglobin 31 pg (25-35) Mean Corpuscular Hemoglobin Concent 33 g/dL (31-37) Red Cell Distribution Width 18.1 % (11.5-14.5) Platelet Count 545 x10^3/uL (140-400) Neutrophils (%) (Auto) 75 % (31-73) Lymphocytes (%) (Auto) 15 % (24-48) Monocytes (%) (Auto) 10 % (0-9) Eosinophils (%) (Auto) 0 % (0-3) Basophils (%) (Auto) 0 % (0-3) Neutrophils # (Auto) 7.8 x10^3/uL (1.8-7.7) Lymphocytes # (Auto) 1.6 x10^3/uL (1.0-4.8) Monocytes # (Auto) 1.0 x10^3/uL (0.0-1.1) Eosinophils # (Auto) 0.0 x10^3/uL (0.0-0.7) Basophils # (Auto) 0.0 x10^3/uL (0.0-0.2) Sodium Level 141 mmol/L (136-145) Potassium Level 3.8 mmol/L (3.5-5.1) Chloride Level 104 mmol/L (98-107) Carbon Dioxide Level 25 mmol/L (21-32) Anion Gap 12 (6-14) Blood Urea Nitrogen 76 mg/dL (7-20) Creatinine 1.6 mg/dL (0.6-1.0) Estimated GFR (Cockcroft-Gault) 34.3 Glucose Level 133 mg/dL (70-99) Calcium Level 8.8 mg/dL (8.5-10.1) Phosphorus Level 4.0 mg/dL (2.6-4.7) Magnesium Level 1.7 mg/dL (1.8-2.4) Triglycerides Level 144 mg/dL (0-150) Glucose (Fingerstick) 136 mg/dL (70-99) Problem List Problems Medical Problems: (1) Acute pancreatitis Status: Acute (2) Cholelithiasis Status: Acute Assessment/Plan supportive care MARV WYNNE MD 08/08/19 1148: SURGICAL PROGRESS NOTE Assessment/Plan Steven Servin pt seen sleeping some fevers last few days CXR from 08/06 seen as above no new surgical recs 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 CASHIER PAYMENTS RECEIVED Aug 08, 2019 09:22 MARV WYNNE MD Aug 08, 2019 11:48
--- NOTE | 2019-08-08 10:21 | PDOC ---
PULMONARY PROGRESS NOTES Subjective Patient intubated on 07/10 , s/p trach 07/24, Patient responding to verbal stimuli Vitals Vital Signs Date Time Temp Pulse Resp B/P (MAP) Pulse Ox O2 Delivery O2 Flow Rate FiO2 08/08/19 10:00 105 22 166/81 (109) 100 Ventilator 08/08/19 08:00 101.2 101.2 Comments ros unable to obtain on vent Lungs: Other (dimished in BLL nc at perrl nose clear neck trach site ok no lad no thyromegaly) Cardiovascular: S1, S2 Abdomen: Soft, Non-tender, Other (distended) Extremities: Other (+3 generalized edema ) Skin: Warm, Dry Labs Laboratory Tests Test 08/06/19 14:41 08/06/19 18:13 08/07/19 00:57 08/07/19 06:50 Glucose (Fingerstick) 134 mg/dL (70-99) 135 mg/dL (70-99) 147 mg/dL (70-99) White Blood Count 6.9 x10^3/uL (4.0-11.0) Red Blood Count 2.28 x10^6/uL (3.50-5.40) Hemoglobin 7.0 g/dL (12.0-15.5) Hematocrit 21.2 % (36.0-47.0) Mean Corpuscular Volume 93 fL (79-100) Mean Corpuscular Hemoglobin 31 pg (25-35) Mean Corpuscular Hemoglobin Concent 33 g/dL (31-37) Red Cell Distribution Width 18.5 % (11.5-14.5) Platelet Count 497 x10^3/uL (140-400) Neutrophils (%) (Auto) 76 % (31-73) Lymphocytes (%) (Auto) 12 % (24-48) Monocytes (%) (Auto) 11 % (0-9) Eosinophils (%) (Auto) 0 % (0-3) Basophils (%) (Auto) 0 % (0-3) Neutrophils # (Auto) 5.3 x10^3/uL (1.8-7.7) Lymphocytes # (Auto) 0.8 x10^3/uL (1.0-4.8) Monocytes # (Auto) 0.8 x10^3/uL (0.0-1.1) Eosinophils # (Auto) 0.0 x10^3/uL (0.0-0.7) Basophils # (Auto) 0.0 x10^3/uL (0.0-0.2) Sodium Level 140 mmol/L (136-145) Potassium Level 3.8 mmol/L (3.5-5.1) Chloride Level 103 mmol/L (98-107) Carbon Dioxide Level 27 mmol/L (21-32) Anion Gap 10 (6-14) Blood Urea Nitrogen 65 mg/dL (7-20) Creatinine 1.4 mg/dL (0.6-1.0) Estimated GFR (Cockcroft-Gault) 40.0 BUN/Creatinine Ratio 46 (6-20) Glucose Level 136 mg/dL (70-99) Calcium Level 8.4 mg/dL (8.5-10.1) Magnesium Level 1.8 mg/dL (1.8-2.4) Total Bilirubin 0.5 mg/dL (0.2-1.0) Aspartate Amino Transf (AST/SGOT) 21 U/L (15-37) Alanine Aminotransferase (ALT/SGPT) 11 U/L (14-59) Alkaline Phosphatase 47 U/L (46-116) Total Protein 5.2 g/dL (6.4-8.2) Albumin 2.8 g/dL (3.4-5.0) Albumin/Globulin Ratio 1.2 (1.0-1.7) Test 08/07/19 06:58 08/07/19 11:30 08/07/19 11:50 08/07/19 17:24 Glucose (Fingerstick) 126 mg/dL (70-99) 165 mg/dL (70-99) 117 mg/dL (70-99) O2 Saturation 96 % (92-99) Arterial Blood pH 7.47 (7.35-7.45) Arterial Blood pCO2 at Patient Temp 36 mmHg (35-46) Arterial Blood pO2 at Patient Temp 88 mmHg (75-108) Arterial Blood HCO3 25 mmol/L (21-28) Arterial Blood Base Excess 1 mmol/L (-3-3) FiO2 35%+5peep Test 08/08/19 00:41 08/08/19 05:50 08/08/19 06:37 Glucose (Fingerstick) 147 mg/dL (70-99) 136 mg/dL (70-99) White Blood Count 10.4 x10^3/uL (4.0-11.0) Red Blood Count 2.50 x10^6/uL (3.50-5.40) Hemoglobin 7.7 g/dL (12.0-15.5) Hematocrit 23.3 % (36.0-47.0) Mean Corpuscular Volume 93 fL (79-100) Mean Corpuscular Hemoglobin 31 pg (25-35) Mean Corpuscular Hemoglobin Concent 33 g/dL (31-37) Red Cell Distribution Width 18.1 % (11.5-14.5) Platelet Count 545 x10^3/uL (140-400) Neutrophils (%) (Auto) 75 % (31-73) Lymphocytes (%) (Auto) 15 % (24-48) Monocytes (%) (Auto) 10 % (0-9) Eosinophils (%) (Auto) 0 % (0-3) Basophils (%) (Auto) 0 % (0-3) Neutrophils # (Auto) 7.8 x10^3/uL (1.8-7.7) Lymphocytes # (Auto) 1.6 x10^3/uL (1.0-4.8) Monocytes # (Auto) 1.0 x10^3/uL (0.0-1.1) Eosinophils # (Auto) 0.0 x10^3/uL (0.0-0.7) Basophils # (Auto) 0.0 x10^3/uL (0.0-0.2) Sodium Level 141 mmol/L (136-145) Potassium Level 3.8 mmol/L (3.5-5.1) Chloride Level 104 mmol/L (98-107) Carbon Dioxide Level 25 mmol/L (21-32) Anion Gap 12 (6-14) Blood Urea Nitrogen 76 mg/dL (7-20) Creatinine 1.6 mg/dL (0.6-1.0) Estimated GFR (Cockcroft-Gault) 34.3 Glucose Level 133 mg/dL (70-99) Calcium Level 8.8 mg/dL (8.5-10.1) Phosphorus Level 4.0 mg/dL (2.6-4.7) Magnesium Level 1.7 mg/dL (1.8-2.4) Triglycerides Level 144 mg/dL (0-150) Laboratory Tests Test 08/07/19 11:30 08/07/19 11:50 08/07/19 17:24 08/08/19 00:41 O2 Saturation 96 % (92-99) Arterial Blood pH 7.47 (7.35-7.45) Arterial Blood pCO2 at Patient Temp 36 mmHg (35-46) Arterial Blood pO2 at Patient Temp 88 mmHg (75-108) Arterial Blood HCO3 25 mmol/L (21-28) Arterial Blood Base Excess 1 mmol/L (-3-3) FiO2 35%+5peep Glucose (Fingerstick) 165 mg/dL (70-99) 117 mg/dL (70-99) 147 mg/dL (70-99) Test 08/08/19 05:50 08/08/19 06:37 White Blood Count 10.4 x10^3/uL (4.0-11.0) Red Blood Count 2.50 x10^6/uL (3.50-5.40) Hemoglobin 7.7 g/dL (12.0-15.5) Hematocrit 23.3 % (36.0-47.0) Mean Corpuscular Volume 93 fL (79-100) Mean Corpuscular Hemoglobin 31 pg (25-35) Mean Corpuscular Hemoglobin Concent 33 g/dL (31-37) Red Cell Distribution Width 18.1 % (11.5-14.5) Platelet Count 545 x10^3/uL (140-400) Neutrophils (%) (Auto) 75 % (31-73) Lymphocytes (%) (Auto) 15 % (24-48) Monocytes (%) (Auto) 10 % (0-9) Eosinophils (%) (Auto) 0 % (0-3) Basophils (%) (Auto) 0 % (0-3) Neutrophils # (Auto) 7.8 x10^3/uL (1.8-7.7) Lymphocytes # (Auto) 1.6 x10^3/uL (1.0-4.8) Monocytes # (Auto) 1.0 x10^3/uL (0.0-1.1) Eosinophils # (Auto) 0.0 x10^3/uL (0.0-0.7) Basophils # (Auto) 0.0 x10^3/uL (0.0-0.2) Sodium Level 141 mmol/L (136-145) Potassium Level 3.8 mmol/L (3.5-5.1) Chloride Level 104 mmol/L (98-107) Carbon Dioxide Level 25 mmol/L (21-32) Anion Gap 12 (6-14) Blood Urea Nitrogen 76 mg/dL (7-20) Creatinine 1.6 mg/dL (0.6-1.0) Estimated GFR (Cockcroft-Gault) 34.3 Glucose Level 133 mg/dL (70-99) Calcium Level 8.8 mg/dL (8.5-10.1) Phosphorus Level 4.0 mg/dL (2.6-4.7) Magnesium Level 1.7 mg/dL (1.8-2.4) Triglycerides Level 144 mg/dL (0-150) Glucose (Fingerstick) 136 mg/dL (70-99) Medications Active Scripts Medications Dose Route/Sig Max Daily Dose Days Date Category Bisoprolol Fumarate 5 Mg Tablet 10 Mg PO DAILY 07/04/19 Reported Impression . IMPRESSION: 1. Acute hypoxemic respiratory failure secondary to ARDS status post trach, 2. Gallstone pancreatitis 3. Severe metabolic acidosis.stable 4. Acute kidney injury-stable, ON HD-- continue to improve 5. Acute gallstone pancreatitis. 6. Hypoalbuminemia. 7. Moderate persistent effusions 8. Fever- 9. Chronic anemia 10. Covid 19 testing negative 11. Moderate to large ascites-S/P paracentisis S/P paracentisis with 4 liters removed on 08/03/19 Plan . Case discussed with RT, try to wean with pressure support Nightly AC hep sq and protonix for prophylaxis Follow surgery recs Follow ID rec, abx per id Follow nephrology recs Nutritional support per surgery continue TPN for nutrition DVT/GI PPX d/w RN/RT HARMEET BEE MD Aug 08, 2019 10:21
--- NOTE | 2019-08-08 10:34 | PDOC ---
[facility] PROGRESS NOTE Chief Complaint Chief Complaint Respiratory failure requiring mechanical ventilation (on vent since 07/10) Tracheostomy bilateral pleural effusions/pulm edema Sepsis Severe Acute gallstone pancreatitis (not a surgical candidate at this time) with necrosis Acute kidney failure now requiring dialysis Salpingitis Gallstones (Calculus of gallbladder with acute cholecystitis without obstruction) HTN Leukocytosis Hypoxia Uterine fibroid Intractable pain Intractable nausea Covid 19 negative. Acute on chronic anemia EEG: No seizure activity. ESRD on HD Hyperglycemia, persistently in 200s History of Present Illness History of Present Illness 08-08-2019 patient seen and examined in the ICU She is on the vent via tracheostomy 50/35% Has IV TPN NG to suction Wearing mitts for patient safety Still seems encephalopathic Chart reviewed Discussed with RN She remains critically ill Ms Diaz is a 48yo F w/ PMHx HTN, prediabetes who presented to the emergency room with complaints of abdominal pain on 07/04/2019. Found with Lipase 21021, AST 401, ALT 249, Bilirubin 1.4. CT abdomen confirms pancreatic inflammation, peripancreatic fluid and inflammatory changes around the pancreas consistent with pancreatitis. Cholelithiasis and 1.4cm uterine fibroid as well as possible left salpingitis. A dmitted for further care GI, General surgery, ID, Pulm consulted. 07/04: No urine output. Added dilaudid for pain, PICC placed per IR. Renal US negative.Seen bedside in ICU, given 2L additional NSS and albumin infusion. Still hypotensive, started on levophed. Repeat CT abdomen w/ necrosis. 07/05: O2 saturation 87% on nasal cannula oxygen. Dialysis catheter per nephrology 07/06: She is now on BiPAP appears more ill, now on dialysis 07/07: Seen on BiPAP. Her mother and another family member are present and seemed to be good support for her. Currently on dialysis. Appears critically ill 07/08: Overnight Tmax 101.7 , still on BiPAP FiO2 40%, still on low dose Levophed gtt, TPN initiated. On dialysis 07/24: Tracheostomy 07/30: S/p tracheostomy on vent spontaneous respirations with 5 of pressure support 35% FiO2, rectal tube and a Lind, off pressors 07/31: Off pressors. Seen on dialysis this morning. BUN 80. Tracking with her eyes. Still on vent via trach. 08/01: BUN 68, Cr 1.7. Temp 100.2F axillary. WBC 9.8. Still on vent via trach. Tracking reasonably well. In obvious discomfort. Removed PICC and CVC LIJ and replaced. Tips sent for culture. CT chest/abd/pelvis with bilateral pleural effusion and ascites. 08/02: Renal function stable. Still on vent. More interactive today. Miming wish for food. Plan discussed for thoracentesis/paracentesis with daughters today. They were under impression patient was doing worse due to a miscommunication which has been clarified over the phone. 4.3L removed. 08/03: BUN 88, Cr 1.8. Much more interactive today. Appears more comfortable today. 08/04: Febrile overnight 101.8F. More interactive, still on vent. Asking for ice by miming. 08/05: Afebrile overnight. TMax last 24 hours 100.6F. Hb 7.1. Interactive when awake. Afebrile. Hb 7. Not tolerating vent wean. Very interactive, on low dose precedex. Excellent UOP over the past 72 hours Plan: Cont vent weaning, dialysis Trach shield during day if ok with pulm. Would recommend ABG after 4 hours to r/o CO2 retention, however and still vent overnight Vitals/I&O Vitals/I&O: Vital Signs Date Time Temp Pulse Resp B/P (MAP) Pulse Ox O2 Delivery O2 Flow Rate FiO2 08/08/19 10:00 105 22 166/81 (109) 100 Ventilator 08/08/19 08:00 101.2 101.2 I & O 08/07/19 08/07/19 08/08/19 15:00 23:00 07:00 Intake Total 540 ml 2345.19 ml 1077 ml Output Total 585 ml 630 ml 770 ml Balance -45 ml 1715.19 ml 307 ml Physical Exam Physical Exam: GENERAL: Propped up in bed, resting quietly, arouses to voice HEENT: Pupils equal, + NGT, oral cavity dry NECK: Trach/vent LUNGS: rhonchi HEART: S1, S2, regular ABDOMEN: Distended, tender, hypoactive BS, : Lind (08/01) EXTREMITIES: Generalized edema, no cyanosis, SCDs bilaterally DERMATOLOGIC: Warm and dry. No generalized rash. CENTRAL NERVOUS SYSTEM: Nods appropriately to few questions, HDC & LIJ (08/01) clean General: mild distress, Other (Seems confused) Heart: Regular rate, Normal S1, Other (increased rate) Lungs: Crackles, Other (dimished in BLL nc at perrl nose clear neck trach site ok no lad no thyromegaly) Abdomen: No tenderness, Other (distended ) Extremities: Other (ANASARCA) Skin: Other (mottling noted to extremities ) Labs Labs: Laboratory Tests Test 08/07/19 11:30 08/07/19 11:50 08/07/19 17:24 08/08/19 00:41 O2 Saturation 96 % (92-99) Arterial Blood pH 7.47 (7.35-7.45) Arterial Blood pCO2 at Patient Temp 36 mmHg (35-46) Arterial Blood pO2 at Patient Temp 88 mmHg (75-108) Arterial Blood HCO3 25 mmol/L (21-28) Arterial Blood Base Excess 1 mmol/L (-3-3) FiO2 35%+5peep Glucose (Fingerstick) 165 mg/dL (70-99) 117 mg/dL (70-99) 147 mg/dL (70-99) Test 08/08/19 05:50 08/08/19 06:37 White Blood Count 10.4 x10^3/uL (4.0-11.0) Red Blood Count 2.50 x10^6/uL (3.50-5.40) Hemoglobin 7.7 g/dL (12.0-15.5) Hematocrit 23.3 % (36.0-47.0) Mean Corpuscular Volume 93 fL (79-100) Mean Corpuscular Hemoglobin 31 pg (25-35) Mean Corpuscular Hemoglobin Concent 33 g/dL (31-37) Red Cell Distribution Width 18.1 % (11.5-14.5) Platelet Count 545 x10^3/uL (140-400) Neutrophils (%) (Auto) 75 % (31-73) Lymphocytes (%) (Auto) 15 % (24-48) Monocytes (%) (Auto) 10 % (0-9) Eosinophils (%) (Auto) 0 % (0-3) Basophils (%) (Auto) 0 % (0-3) Neutrophils # (Auto) 7.8 x10^3/uL (1.8-7.7) Lymphocytes # (Auto) 1.6 x10^3/uL (1.0-4.8) Monocytes # (Auto) 1.0 x10^3/uL (0.0-1.1) Eosinophils # (Auto) 0.0 x10^3/uL (0.0-0.7) Basophils # (Auto) 0.0 x10^3/uL (0.0-0.2) Sodium Level 141 mmol/L (136-145) Potassium Level 3.8 mmol/L (3.5-5.1) Chloride Level 104 mmol/L (98-107) Carbon Dioxide Level 25 mmol/L (21-32) Anion Gap 12 (6-14) Blood Urea Nitrogen 76 mg/dL (7-20) Creatinine 1.6 mg/dL (0.6-1.0) Estimated GFR (Cockcroft-Gault) 34.3 Glucose Level 133 mg/dL (70-99) Calcium Level 8.8 mg/dL (8.5-10.1) Phosphorus Level 4.0 mg/dL (2.6-4.7) Magnesium Level 1.7 mg/dL (1.8-2.4) Triglycerides Level 144 mg/dL (0-150) Glucose (Fingerstick) 136 mg/dL (70-99) Review of Systems Review of Systems: Unable to obtain Assessment and Plan Assessmemt and Plan Problems Medical Problems: (1) Acute pancreatitis Status: Acute (2) Cholelithiasis Status: Acute Respiratory failure requiring intubation Status post tracheostomy Severe Acute gallstone pancreatitis (she is not a surgical candidate as she is too ill) Acute kidney failure now requiring dialysis Salpingo--itis Gallstones (Calculus of gallbladder with acute cholecystitis without obstruction) HTN Leukocytosis Hypoxia Uterine fibroid Hypoxia with respiratory failure Intractable pain Intractable nausea Plan ICU monitoring Tracheostomy care NG suctioning Vent management per pulm. pressure support as tolerated Dialysis per nephro Merrem (07/26) and Zyvox (07/28) and micafungin Follow cultures Trach care Nutritional support When necessary levo fed Neuro following No plans for sx at present as she is to ill still Discharge disposition pending (? Eventual LTAC) She is still critically ill Prognosis very guarded Total time 33 min Comment Review of Relevant I have reviewed the following items kolby (where applicable) has been applied. Medications: Current Medications Medications (Trade) Dose Ordered Sig/Yvon Route PRN Reason Start Time Stop Time Status Last Admin Dose Admin Sodium Chloride 100 meq/Potassium Chloride 40 meq/ Magnesium Sulfate 15 meq/Calcium Gluconate 15 meq/ Multivitamins 10 ml/Chromium/ Copper/Manganese/ Seleni/Zn 0.5 ml/ Insulin Human Regular 35 unit/ Total Parenteral Nutrition/Amino Acids/Dextrose/ Fat Emulsion Intravenous 1,400 ml @ 58.333 mls/ hr TPN CONT IV 08/07/19 22:00 08/08/19 21:59 08/07/19 22:46 Hemodynamically unstable?: No Is patient in severe pain?: No Is NPO status required?: Yes BEBO KIRBY III DO Aug 08, 2019 10:34
--- NOTE | 2019-08-08 10:45 | PDOC ---
Subjective: Subjective: Indicates some abd pain. Objective: Objective: Reviewed other notes - ?repeat paracentesis Vital Signs: Vital Signs Date Time Temp Pulse Resp B/P (MAP) Pulse Ox O2 Delivery O2 Flow Rate FiO2 08/08/19 10:00 105 22 166/81 (109) 100 Ventilator 08/08/19 08:00 101.2 101.2 Labs: Laboratory Tests Test 08/07/19 11:30 08/07/19 11:50 08/07/19 17:24 08/08/19 00:41 O2 Saturation 96 % Arterial Blood pH 7.47 Arterial Blood pCO2 at Patient Temp 36 mmHg Arterial Blood pO2 at Patient Temp 88 mmHg Arterial Blood HCO3 25 mmol/L Arterial Blood Base Excess 1 mmol/L FiO2 35%+5peep Glucose (Fingerstick) 165 mg/dL 117 mg/dL 147 mg/dL Test 08/08/19 05:50 08/08/19 06:37 White Blood Count 10.4 x10^3/uL Red Blood Count 2.50 x10^6/uL Hemoglobin 7.7 g/dL Hematocrit 23.3 % Mean Corpuscular Volume 93 fL Mean Corpuscular Hemoglobin 31 pg Mean Corpuscular Hemoglobin Concent 33 g/dL Red Cell Distribution Width 18.1 % Platelet Count 545 x10^3/uL Neutrophils (%) (Auto) 75 % Lymphocytes (%) (Auto) 15 % Monocytes (%) (Auto) 10 % Eosinophils (%) (Auto) 0 % Basophils (%) (Auto) 0 % Neutrophils # (Auto) 7.8 x10^3/uL Lymphocytes # (Auto) 1.6 x10^3/uL Monocytes # (Auto) 1.0 x10^3/uL Eosinophils # (Auto) 0.0 x10^3/uL Basophils # (Auto) 0.0 x10^3/uL Sodium Level 141 mmol/L Potassium Level 3.8 mmol/L Chloride Level 104 mmol/L Carbon Dioxide Level 25 mmol/L Anion Gap 12 Blood Urea Nitrogen 76 mg/dL Creatinine 1.6 mg/dL Estimated GFR (Cockcroft-Gault) 34.3 Glucose Level 133 mg/dL Calcium Level 8.8 mg/dL Phosphorus Level 4.0 mg/dL Magnesium Level 1.7 mg/dL Triglycerides Level 144 mg/dL Glucose (Fingerstick) 136 mg/dL ANAEROBIC-AEROBIC CULTURE PENDING ANAEROBIC RES 1 PENDING AEROBIC CULT Final Final report AEROBIC RES 1 Final Comment No growth in 56 - 72 hours. GRAM STAIN Final Final report GRAM STAIN RES 1 Final Comment No white blood cells seen. GRAM STAIN RES 2 Final No organisms seen BLOOD CULTURE Final NO GROWTH AFTER 5 DAYS Imaging: CXR 08/06 IMPRESSION: Tracheostomy tube with no pneumothorax but bilateral pleural effusions and wor sening bilateral atelectasis/airspace opacities. Speech Path Referred for swallowing eval. Following for appropriate timing of eval as pt has con't on vent this week. Will hold swallow eval to allow opportunity for vent weaning. If vent use becomes long-term, could consider pursuing in-line PM Valve to optimize swallow function potential and address further assessment and tx when valve in place. (Currently have valves only for trachs, would need to special order in line valve for vent). Will f/u as indicated. PE: GEN: chronically ill HEENT:trach, NG bilious LUNGS: clear HEART: tachycardic ABD: distended, tender EXTREMITY: BLE edema NEURO/PSYCH: awake A/P: Gallstone pancreatitis w/ necrosis, MOSF, fever -- Will review w/ Dr. Weber. Hemodynamically unstable?: No Is patient in severe pain?: Yes Is NPO status required?: Yes CYNDEE FALCON Aug 08, 2019 10:45
[2019-08-08] MEDS: ACETAMINOPHEN 650 MG SUPP.RECT. PR PRN ×2 (12:33→20:33)
--- NOTE | 2019-08-08 13:15 | PDOC ---
SUBJECTIVE ROS stable OBJECTIVE Vital Signs Vital Signs Date Time Temp Pulse Resp B/P (MAP) Pulse Ox O2 Delivery O2 Flow Rate FiO2 08/08/19 13:00 116 22 141/70 (93) 100 Ventilator 08/08/19 12:00 101.2 101.2 I & 0 Intake and Output 08/08/19 07:00 Intake Total 3962.19 ml Output Total 1985 ml Balance 1977.19 ml Intake Oral 0 ml IV Total 3722.19 ml Other 240 ml Output Urine Total 1935 ml Gastric Drainage Total 50 ml PHYSICAL EXAM Physical Exam GENERAL: arouses to voice HEENT: + NGT, NECK: Trach/vent LUNGS: rhonchi HEART: S1, S2, regular ABDOMEN: Distended, tender, hypoactive BS, : Lind (08/01) EXTREMITIES: Generalized edema, no cyanosis, DERMATOLOGIC: No generalized rash. CENTRAL NERVOUS SYSTEM: Nods appropriately to few questions, HDC (08/01) DIAGNOSIS/ASSESSMENT Assessment & Plan ARF-- ATN, On HD currently , TTS schedule now , improved uop Monitor for renal recovery Anemia- Currently on HIRAM Anasarca due to 3rd spacing stable Hyperkalemia- resolved AC Pancreatitis, early developing necrosis No intervention per GS CT SCAN 07/27 -. 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 Acute hypoxic resp failure ,bilateral pleural effusion Has Trach, On Vent Persistent pleural effusions and atelectasis in the lung bases. hypocalcemia - stable HTN- Hypotensive , pressors as indicated COVID-19 neg, 07/13 COMMENT/RELEVANT DATA Meds Current Medications Medications (Trade) Dose Ordered Sig/Yvon Start Time Stop Time Status Last Admin Dose Admin Acetaminophen (Tylenol Supp) 650 mg PRN Q6HRS PRN 07/12/19 10:30 08/08/19 12:33 650 MG Acetaminophen (Tylenol) 650 mg PRN Q6HRS PRN 07/09/19 03:36 08/04/19 19:56 650 MG Albumin Human 200 ml @ 200 mls/hr 1X PRN PRN 08/06/19 08:30 08/06/19 14:29 DC 08/06/19 09:18 200 MLS/HR Albuterol Sulfate (Ventolin Neb Soln) 2.5 mg 1X ONCE 07/05/19 22:30 07/05/19 22:31 DC 07/06/19 00:56 2.5 MG Alteplase, Recombinant (Cathflo For Central Catheter Clearance) 1 mg 1X ONCE 07/19/19 22:00 07/19/19 22:01 DC 07/19/19 22:05 1 MG Artificial Tears (Artificial Tears) 1 drop PRN Q1HR PRN 07/11/19 08:15 Atenolol (Tenormin) 100 mg DAILY 07/05/19 09:00 07/04/19 20:08 DC Atropine Sulfate (ATROPINE 0.5mg SYRINGE) 0.5 mg PRN Q5MIN PRN 07/21/19 08:15 Benzocaine (Hurricaine One) 1 spray 1X ONCE 07/08/19 14:30 07/08/19 14:31 DC 07/08/19 16:38 1 SPRAY Bupivacaine HCl/ Epinephrine Bitart (Sensorcain-Epi 0.5%-1:988497 Mpf) 30 ml STK-MED ONCE 07/25/19 11:00 07/25/19 11:01 DC 07/25/19 11:44 1 ML Calcium Carbonate/ Glycine (Tums) 500 mg PRN AFTMEALHC PRN 07/06/19 17:45 Calcium Chloride 1000 mg/Sodium Chloride 110 ml @ 220 mls/hr 1X ONCE 07/05/19 22:30 07/05/19 22:59 DC 07/05/19 22:11 220 MLS/HR Calcium Chloride 3000 mg/Sodium Chloride 1,030 ml @ 50 mls/hr [id number] 07/07/19 08:00 07/09/19 15:23 DC 07/09/19 02:17 50 MLS/HR Calcium Gluconate (Calcium Gluconate) 2,000 mg 1X ONCE 07/07/19 02:15 07/07/19 02:16 DC 07/07/19 02:19 2,000 MG Calcium Gluconate 1000 mg/Sodium Chloride 110 ml @ 220 mls/hr 1X ONCE 07/06/19 03:30 07/06/19 03:59 DC 07/06/19 03:21 220 MLS/HR Calcium Gluconate 2000 mg/Sodium Chloride 120 ml @ 220 mls/hr 1X ONCE 07/06/19 07:30 07/06/19 08:02 DC 07/06/19 09:05 220 MLS/HR Cefepime HCl (Maxipime) 2 gm Q12HR 07/13/19 09:00 07/27/19 09:58 DC 07/26/19 20:56 2 GM Cellulose (Surgicel Fibrillar 1x2) 1 each STK-MED ONCE 07/25/19 11:00 07/25/19 11:01 DC Cellulose (Surgicel Hemostat 4x8) 1 each STK-MED ONCE 07/25/19 11:55 07/25/19 11:56 DC 07/25/19 11:44 1 EACH Daptomycin 500 mg/ Sodium Chloride 50 ml @ 100 mls/hr Q48H 07/13/19 08:30 07/29/19 10:07 DC 07/29/19 09:57 100 MLS/HR Dexmedetomidine HCl 400 mcg/ Sodium Chloride 100 ml @ 0 mls/hr CONT PRN 07/21/19 08:15 08/08/19 10:36 30.5 MLS/HR Dextrose (Dextrose 50%-Water Syringe) 12.5 gm PRN Q15MIN PRN 07/04/19 09:30 Digoxin (Lanoxin) 125 mcg 1X ONCE 07/07/19 18:00 07/07/19 18:01 DC 07/07/19 17:10 125 MCG Diphenhydramine HCl (Benadryl) 25 mg 1X PRN PRN 08/01/19 09:45 08/02/19 09:44 DC Etomidate (Amidate) 8 mg 1X ONCE 07/11/19 08:30 07/11/19 08:31 DC 07/11/19 08:33 8 MG Fentanyl Citrate (Fentanyl 2ml Vial) 50 mcg PRN Q5MIN PRN 07/25/19 07:00 07/26/19 06:59 DC Furosemide (Lasix) 40 mg 1X ONCE 08/01/19 14:30 08/01/19 14:31 DC 08/01/19 14:39 40 MG Heparin Sodium (Porcine) (Hep Lock Adult) 500 unit STK-MED ONCE 07/26/19 09:29 07/26/19 09:30 DC Heparin Sodium (Porcine) (Heparin Sodium) 5,000 unit Q12HR 07/22/19 21:00 08/08/19 09:21 5,000 UNIT Hydromorphone HCl (Dilaudid) 1 mg PRN Q3HRS PRN 07/05/19 12:00 07/19/19 00:25 DC 07/11/19 05:13 1 MG Info (CONTRAST GIVEN -- Rx MONITORING) 1 each PRN DAILY PRN 07/18/19 11:45 07/20/19 11:44 DC Info (Icu Electrolyte Protocol) 1 ea CONT PRN PRN 07/17/19 13:15 Info (PHARMACY MONITORING -- do not chart) 1 each PRN DAILY PRN 08/06/19 08:30 Info (Tpn Per Pharmacy) 1 each PRN DAILY PRN 07/06/19 12:30 UNV Insulin Human Lispro (HumaLOG) 0-9 UNITS Q6HRS 07/04/19 09:30 08/08/19 12:32 4 UNITS Insulin Human Regular (HumuLIN R VIAL) 5 unit 1X ONCE 07/05/19 22:30 07/05/19 22:31 DC 07/05/19 22:14 5 UNIT Iohexol (Omnipaque 240 Mg/ml) 30 ml 1X ONCE 07/18/19 11:30 07/18/19 11:33 DC 07/18/19 11:30 30 ML Iohexol (Omnipaque 300 Mg/ml) 60 ml 1X ONCE 07/05/19 17:00 07/05/19 17:01 DC 07/05/19 17:20 60 ML Iohexol (Omnipaque 350 Mg/ml) 90 ml 1X ONCE 07/04/19 03:30 07/04/19 03:31 DC 07/04/19 03:25 90 ML Ketorolac Tromethamine (Toradol 30mg Vial) 30 mg 1X ONCE 07/04/19 03:00 07/04/19 03:01 DC 07/04/19 02:54 30 MG Lidocaine HCl (Buffered Lidocaine 1%) 6 ml 1X ONCE 08/03/19 13:30 08/03/19 13:31 DC 08/03/19 13:45 9 ML Lidocaine HCl (Glydo (Lidocaine) Jelly) 1 ramu 1X ONCE 07/08/19 14:30 07/08/19 14:31 DC 07/08/19 16:38 1 RAMU Lidocaine HCl (Xylocaine-Mpf 1% 2ml Vial) 2 ml PRN 1X PRN 07/25/19 07:00 07/26/19 06:59 DC Linezolid/Dextrose 300 ml @ 300 mls/hr Q12HR 07/29/19 11:00 08/08/19 09:16 300 MLS/HR Lorazepam (Ativan Inj) 1 mg PRN Q4HRS PRN 07/07/19 09:00 08/05/19 09:19 DC 08/05/19 03:51 1 MG Magnesium Sulfate 50 ml @ 25 mls/hr PRN DAILY PRN 07/24/19 09:15 Meropenem 1 gm/ Sodium Chloride 100 ml @ 200 mls/hr Q8HRS 07/05/19 20:00 07/06/19 08:48 DC 07/06/19 05:45 200 MLS/HR Meropenem 500 mg/ Sodium Chloride 50 ml @ 100 mls/hr Q12H 07/27/19 10:00 08/08/19 09:17 100 MLS/HR Metoprolol Tartrate (Lopressor Vial) 5 mg Q6HRS 07/05/19 10:15 07/16/19 08:48 DC 07/14/19 00:12 5 MG Metronidazole 100 ml @ 100 mls/hr Q8HRS 08/02/19 10:00 08/08/19 06:41 100 MLS/HR Micafungin Sodium 100 mg/Dextrose 100 ml @ 100 mls/hr Q24H 07/11/19 09:00 08/08/19 09:16 100 MLS/HR Midazolam HCl (Versed) 5 mg 1X ONCE 07/11/19 08:30 07/11/19 08:31 DC Midazolam HCl 100 mg/Sodium Chloride 100 ml @ 7 mls/hr CONT PRN 07/16/19 16:00 07/27/19 15:35 7 MLS/HR Midazolam HCl 50 mg/Sodium Chloride 50 ml @ 0 mls/hr CONT PRN 07/11/19 08:15 07/16/19 15:59 DC 07/14/19 22:39 7 MLS/HR Morphine Sulfate (Morphine Sulfate) 2 mg PRN Q2HR PRN 07/04/19 05:00 07/05/19 14:15 DC 07/05/19 12:26 2 MG Multi-Ingred Cream/Lotion/Oil/ Oint (Artificial Tears Eye Ointment) 1 ramu PRN Q1HR PRN 07/13/19 17:30 08/01/19 08:19 1 RAMU Norepinephrine Bitartrate 8 mg/ Dextrose 258 ml @ 17.299 mls/ hr CONT PRN 07/05/19 15:30 08/05/19 09:19 DC 08/02/19 12:48 20.9 MLS/HR Ondansetron HCl (Zofran) 4 mg PRN Q6HRS PRN 07/25/19 07:00 07/26/19 06:59 DC Pantoprazole Sodium (PROTONIX VIAL for IV PUSH) 40 mg DAILYAC 07/04/19 11:30 08/08/19 09:16 40 MG Piperacillin Sod/ Tazobactam Sod 4.5 gm/Sodium Chloride 100 ml @ 200 mls/hr 1X ONCE 07/04/19 06:00 07/04/19 06:29 DC 07/04/19 05:44 200 MLS/HR Potassium Chloride 15 meq/ Bicarbonate Dialysis Soln w/ out KCl 5,007.5 ml @ 1,000 mls/ hr Q5H1M 07/17/19 20:00 07/21/19 13:08 DC 07/20/19 18:14 1,000 MLS/HR Potassium Chloride 20 meq/ Bicarbonate Dialysis Soln w/ out KCl 5,010 ml @ 1,000 mls/hr Q5H1M 07/13/19 16:00 07/17/19 19:59 DC 07/17/19 14:54 1,000 MLS/HR Potassium Chloride/Water 100 ml @ 100 mls/hr 1X ONCE 08/06/19 14:45 08/06/19 15:44 DC 08/06/19 17:28 100 MLS/HR Potassium Phosphate 20 mmol/ Sodium Chloride 106.6667 ml @ 51.667 m... 1X ONCE 07/13/19 13:00 07/13/19 15:03 DC 07/13/19 12:51 51.667 MLS/HR Prochlorperazine Edisylate (Compazine) 5 mg PACU PRN PRN 07/25/19 07:00 07/26/19 06:59 DC Propofol 20 ml @ As Directed STK-MED ONCE 07/25/19 11:07 07/25/19 11:07 DC Ringer's Solution 1,000 ml @ 30 mls/hr Q24H 07/25/19 07:00 07/25/19 18:59 DC Sevoflurane (Ultane) 60 ml STK-MED ONCE 07/25/19 12:46 07/25/19 12:46 DC Sodium Bicarbonate 50 meq/Sodium Chloride 1,050 ml @ 75 mls/hr Q14H 07/06/19 07:30 07/11/19 10:28 DC 07/10/19 21:10 75 MLS/HR Sodium Chloride (Normal Saline Flush) 20 ml PRN Q5MIN PRN 08/02/19 15:00 Sodium Chloride 90 meq/Calcium Gluconate 10 meq/ Multivitamins 10 ml/Chromium/ Copper/Manganese/ Seleni/Zn 0.5 ml/ Total Parenteral Nutrition/Amino Acids/Dextrose/ Fat Emulsion Intravenous 1,512 ml @ 63 mls/hr TPN CONT 07/06/19 22:00 07/07/19 21:59 DC 07/06/19 22:06 63 MLS/HR Sodium Chloride 90 meq/Calcium Gluconate 10 meq/ Multivitamins 10 ml/Chromium/ Copper/Manganese/ Seleni/Zn 1 ml/ Total Parenteral Nutrition/Amino Acids/Dextrose/ Fat Emulsion Intravenous 55.005 ml @ 2.292 mls/hr TPN CONT 07/06/19 22:00 07/06/19 12:33 DC Sodium Chloride 90 meq/Magnesium Sulfate 10 meq/ Calcium Gluconate 20 meq/ Multivitamins 10 ml/Chromium/ Copper/Manganese/ Seleni/Zn 0.5 ml/ Total Parenteral Nutrition/Amino Acids/Dextrose/ Fat Emulsion Intravenous 1,512 ml @ 63 mls/hr TPN CONT 07/07/19 22:00 07/08/19 21:59 DC 07/07/19 22:25 63 MLS/HR Sodium Chloride 90 meq/Magnesium Sulfate 12 meq/ Calcium Gluconate 15 meq/ Multivitamins 10 ml/Chromium/ Copper/Manganese/ Seleni/Zn 0.5 ml/ Insulin Human Regular 25 unit/ Total Parenteral Nutrition/Amino Acids/Dextrose/ Fat Emulsion Intravenous 1,400 ml @ 58.333 mls/ hr TPN CONT 07/27/19 22:00 07/28/19 21:59 DC 07/27/19 21:41 58.333 MLS/HR Sodium Chloride 90 meq/Potassium Chloride 15 meq/ Magnesium Sulfate 12 meq/Calcium Gluconate 15 meq/ Multivitamins 10 ml/Chromium/ Copper/Manganese/ Seleni/Zn 0.5 ml/ Insulin Human Regular 25 unit/ Total Parenteral Nutrition/Amino Acids/Dextrose/ Fat Emulsion Intravenous 1,400 ml @ 58.333 mls/ hr TPN CONT 07/26/19 22:00 07/27/19 21:59 DC 07/26/19 22:13 58.333 MLS/HR Sodium Chloride 90 meq/Potassium Chloride 15 meq/ Potassium Phosphate 10 mmol/ Magnesium Sulfate 8 meq/Calcium Gluconate 15 meq/ Multivitamins 10 ml/Chromium/ Copper/Manganese/ Seleni/Zn 0.5 ml/ Insulin Human Regular 25 unit/ Total Parenteral Nutrition/Amino Acids/Dextrose/ Fat Emulsion Intravenous 1,400 ml @ 58.333 mls/ hr TPN CONT 07/24/19 22:00 07/25/19 21:59 DC 07/24/19 21:20 58.333 MLS/HR Sodium Chloride 90 meq/Potassium Chloride 15 meq/ Potassium Phosphate 10 mmol/ Magnesium Sulfate 10 meq/Calcium Gluconate 20 meq/ Multivitamins 10 ml/Chromium/ Copper/Manganese/ Seleni/Zn 0.5 ml/ Total Parenteral Nutrition/Amino Acids/Dextrose/ Fat Emulsion Intravenous 1,400 ml @ 58.333 mls/ hr TPN CONT 07/11/19 22:00 07/12/19 21:59 DC 07/11/19 21:42 58.333 MLS/HR Sodium Chloride 90 meq/Potassium Chloride 15 meq/ Potassium Phosphate 10 mmol/ Magnesium Sulfate 12 meq/Calcium Gluconate 15 meq/ Multivitamins 10 ml/Chromium/ Copper/Manganese/ Seleni/Zn 0.5 ml/ Insulin Human Regular 25 unit/ Total Parenteral Nutrition/Amino Acids/Dextrose/ Fat Emulsion Intravenous 1,400 ml @ 58.333 mls/ hr TPN CONT 07/25/19 22:00 07/26/19 21:59 DC 07/25/19 22:24 58.333 MLS/HR Sodium Chloride 90 meq/Potassium Chloride 15 meq/ Potassium Phosphate 15 mmol/ Magnesium Sulfate 10 meq/Calcium Gluconate 15 meq/ Multivitamins 10 ml/Chromium/ Copper/Manganese/ Seleni/Zn 0.5 ml/ Total Parenteral Nutrition/Amino Acids/Dextrose/ Fat Emulsion Intravenous 1,400 ml @ 58.333 mls/ hr TPN CONT 07/12/19 22:00 07/13/19 21:59 DC 07/12/19 22:17 58.333 MLS/HR Sodium Chloride 90 meq/Potassium Chloride 15 meq/ Potassium Phosphate 15 mmol/ Magnesium Sulfate 10 meq/Calcium Gluconate 20 meq/ Multivitamins 10 ml/Chromium/ Copper/Manganese/ Seleni/Zn 0.5 ml/ Total Parenteral Nutrition/Amino Acids/Dextrose/ Fat Emulsion Intravenous 1,200 ml @ 50 mls/hr TPN CONT 07/10/19 22:00 07/10/19 14:17 DC Sodium Chloride 90 meq/Potassium Chloride 15 meq/ Potassium Phosphate 18 mmol/ Magnesium Sulfate 8 meq/Calcium Gluconate 15 meq/ Multivitamins 10 ml/Chromium/ Copper/Manganese/ Seleni/Zn 0.5 ml/ Insulin Human Regular 10 unit/ Total Parenteral Nutrition/Amino Acids/Dextrose/ Fat Emulsion Intravenous 1,400 ml @ 58.333 mls/ hr TPN CONT 07/15/19 22:00 07/16/19 21:59 DC 07/15/19 21:43 58.333 MLS/HR Sodium Chloride 90 meq/Potassium Chloride 15 meq/ Potassium Phosphate 18 mmol/ Magnesium Sulfate 8 meq/Calcium Gluconate 15 meq/ Multivitamins 10 ml/Chromium/ Copper/Manganese/ Seleni/Zn 0.5 ml/ Insulin Human Regular 15 unit/ Total Parenteral Nutrition/Amino Acids/Dextrose/ Fat Emulsion Intravenous 1,400 ml @ 58.333 mls/ hr TPN CONT 07/18/19 22:00 07/19/19 21:59 DC 07/18/19 21:47 58.333 MLS/HR Sodium Chloride 90 meq/Potassium Chloride 15 meq/ Potassium Phosphate 18 mmol/ Magnesium Sulfate 8 meq/Calcium Gluconate 15 meq/ Multivitamins 10 ml/Chromium/ Copper/Manganese/ Seleni/Zn 0.5 ml/ Insulin Human Regular 20 unit/ Total Parenteral Nutrition/Amino Acids/Dextrose/ Fat Emulsion Intravenous 1,400 ml @ 58.333 mls/ hr TPN CONT 07/21/19 22:00 07/22/19 21:59 DC 07/21/19 22:45 58.333 MLS/HR Sodium Chloride 90 meq/Potassium Chloride 15 meq/ Potassium Phosphate 18 mmol/ Magnesium Sulfate 8 meq/Calcium Gluconate 15 meq/ Multivitamins 10 ml/Chromium/ Copper/Manganese/ Seleni/Zn 0.5 ml/ Total Parenteral Nutrition/Amino Acids/Dextrose/ Fat Emulsion Intravenous 1,400 ml @ 58.333 mls/ hr TPN CONT 07/14/19 22:00 07/15/19 21:59 DC 07/14/19 22:00 58.333 MLS/HR Sodium Chloride 90 meq/Potassium Phosphate 15 mmol/ Magnesium Sulfate 12 meq/Calcium Gluconate 15 meq/ Multivitamins 10 ml/Chromium/ Copper/Manganese/ Seleni/Zn 0.5 ml/ Insulin Human Regular 30 unit/ Total Parenteral Nutrition/Amino Acids/Dextrose/ Fat Emulsion Intravenous 1,400 ml @ 58.333 mls/ hr TPN CONT 07/29/19 22:00 07/30/19 21:59 DC 07/29/19 21:49 58.333 MLS/HR Sodium Chloride 90 meq/Potassium Phosphate 15 mmol/ Magnesium Sulfate 12 meq/Calcium Gluconate 15 meq/ Multivitamins 10 ml/Chromium/ Copper/Manganese/ Seleni/Zn 0.5 ml/ Insulin Human Regular 40 unit/ Total Parenteral Nutrition/Amino Acids/Dextrose/ Fat Emulsion Intravenous 1,400 ml @ 58.333 mls/ hr TPN CONT 07/30/19 22:00 07/31/19 21:59 DC 07/30/19 21:21 58.333 MLS/HR Sodium Chloride 90 meq/Potassium Phosphate 19 mmol/ Magnesium Sulfate 12 meq/Calcium Gluconate 15 meq/ Multivitamins 10 ml/Chromium/ Copper/Manganese/ Seleni/Zn 0.5 ml/ Insulin Human Regular 40 unit/ Total Parenteral Nutrition/Amino Acids/Dextrose/ Fat Emulsion Intravenous 1,400 ml @ 58.333 mls/ hr TPN CONT 07/31/19 22:00 08/01/19 21:59 DC 07/31/19 21:54 58.333 MLS/HR Sodium Chloride 90 meq/Potassium Phosphate 5 mmol/ Magnesium Sulfate 12 meq/Calcium Gluconate 15 meq/ Multivitamins 10 ml/Chromium/ Copper/Manganese/ Seleni/Zn 0.5 ml/ Insulin Human Regular 30 unit/ Total Parenteral Nutrition/Amino Acids/Dextrose/ Fat Emulsion Intravenous 1,400 ml @ 58.333 mls/ hr TPN CONT 07/28/19 22:00 07/29/19 21:59 DC 07/28/19 22:08 58.333 MLS/HR Sodium Chloride 100 meq/Potassium Chloride 40 meq/ Magnesium Sulfate 15 meq/Calcium Gluconate 15 meq/ Multivitamins 10 ml/Chromium/ Copper/Manganese/ Seleni/Zn 0.5 ml/ Insulin Human Regular 35 unit/ Total Parenteral Nutrition/Amino Acids/Dextrose/ Fat Emulsion Intravenous 1,400 ml @ 58.333 mls/ hr TPN CONT 08/07/19 22:00 08/08/19 21:59 08/07/19 22:46 58.333 MLS/HR Sodium Chloride 100 meq/Potassium Phosphate 10 mmol/ Magnesium Sulfate 12 meq/Calcium Gluconate 15 meq/ Multivitamins 10 ml/Chromium/ Copper/Manganese/ Seleni/Zn 0.5 ml/ Insulin Human Regular 35 unit/ Potassium Chloride 20 meq/ Total Parenteral Nutrition/Amino Acids/Dextrose/ Fat Emulsion Intravenous 1,400 ml @ 58.333 mls/ hr TPN CONT 08/04/19 22:00 08/05/19 21:59 DC 08/04/19 22:10 58.333 MLS/HR Sodium Chloride 100 meq/Potassium Phosphate 19 mmol/ Magnesium Sulfate 12 meq/Calcium Gluconate 15 meq/ Multivitamins 10 ml/Chromium/ Copper/Manganese/ Seleni/Zn 0.5 ml/ Insulin Human Regular 40 unit/ Potassium Chloride 20 meq/ Total Parenteral Nutrition/Amino Acids/Dextrose/ Fat Emulsion Intravenous 1,400 ml @ 58.333 mls/ hr TPN CONT 08/03/19 22:00 08/04/19 21:59 DC 08/03/19 21:20 58.333 MLS/HR Sodium Chloride 100 meq/Potassium Phosphate 5 mmol/ Magnesium Sulfate 12 meq/Calcium Gluconate 15 meq/ Multivitamins 10 ml/Chromium/ Copper/Manganese/ Seleni/Zn 0.5 ml/ Insulin Human Regular 35 unit/ Potassium Chloride 20 meq/ Total Parenteral Nutrition/Amino Acids/Dextrose/ Fat Emulsion Intravenous 1,400 ml @ 58.333 mls/ hr TPN CONT 08/05/19 22:00 08/06/19 21:59 DC 08/05/19 22:59 58.333 MLS/HR Succinylcholine Chloride (Anectine) 120 mg 1X ONCE 07/11/19 08:30 07/11/19 08:31 DC 07/11/19 08:34 120 MG Lab Laboratory Tests Test 08/07/19 17:24 4/20/20 00:41 08/08/19 05:50 08/08/19 06:37 Glucose (Fingerstick) 117 mg/dL (70-99) 147 mg/dL (70-99) 136 mg/dL (70-99) White Blood Count 10.4 x10^3/uL (4.0-11.0) Red Blood Count 2.50 x10^6/uL (3.50-5.40) Hemoglobin 7.7 g/dL (12.0-15.5) Hematocrit 23.3 % (36.0-47.0) Mean Corpuscular Volume 93 fL (79-100) Mean Corpuscular Hemoglobin 31 pg (25-35) Mean Corpuscular Hemoglobin Concent 33 g/dL (31-37) Red Cell Distribution Width 18.1 % (11.5-14.5) Platelet Count 545 x10^3/uL (140-400) Neutrophils (%) (Auto) 75 % (31-73) Lymphocytes (%) (Auto) 15 % (24-48) Monocytes (%) (Auto) 10 % (0-9) Eosinophils (%) (Auto) 0 % (0-3) Basophils (%) (Auto) 0 % (0-3) Neutrophils # (Auto) 7.8 x10^3/uL (1.8-7.7) Lymphocytes # (Auto) 1.6 x10^3/uL (1.0-4.8) Monocytes # (Auto) 1.0 x10^3/uL (0.0-1.1) Eosinophils # (Auto) 0.0 x10^3/uL (0.0-0.7) Basophils # (Auto) 0.0 x10^3/uL (0.0-0.2) Sodium Level 141 mmol/L (136-145) Potassium Level 3.8 mmol/L (3.5-5.1) Chloride Level 104 mmol/L (98-107) Carbon Dioxide Level 25 mmol/L (21-32) Anion Gap 12 (6-14) Blood Urea Nitrogen 76 mg/dL (7-20) Creatinine 1.6 mg/dL (0.6-1.0) Estimated GFR (Cockcroft-Gault) 34.3 Glucose Level 133 mg/dL (70-99) Calcium Level 8.8 mg/dL (8.5-10.1) Phosphorus Level 4.0 mg/dL (2.6-4.7) Magnesium Level 1.7 mg/dL (1.8-2.4) Triglycerides Level 144 mg/dL (0-150) Test 08/08/19 12:23 Glucose (Fingerstick) 176 mg/dL (70-99) Results All relevant outside records, renal labs, imaging studies, telemetry/EKG's were reviewed. VERENA KENT MD Aug 08, 2019 13:15
--- NOTE | 2019-08-08 13:48 | PDOC ---
PROGRESS NOTES Assessment Assessment Respiratory failure. Seizure. Metabolic encephalopathy. Fever 102.7 degree, recurrent fever noted. Metabolic acidosis. Diffuse pulmonary infiltrate. Pleural effusion. Pancreatitis, necrotizing. Gallstone. Leukocytosis. Lymphopenia. Electrolytes imbalances. Hyperglycemia. DM. HTN. HLD. Anemia. Abnormal CXR. Obesity. Covid-19 still suspected. RECOMMENDATIONS/PLAN: Continue life support in CCU at the present time. Keppra if has further seizures. Treat medical diseases. OT/PT. EEG: No seizure activity. OBJECTIVE: 08/08/19: No seizures reported over night. Past Medical History Cardiovascular: HTN, Hyperlipidemia Endocrine: Diabetes Family History Unobtainable. Social HistoryU not obtainable Allergies Coded Allergies: Codeine (Verified Allergy, Intermediate, rash, 07/04/19) ROS Unobtainable. NEUROLOGICAL EXAMINATION: Eyes open from time to time. Not oriented to time, place and person. PERRL. EOMI. CN: no acute focal findings. Muscle tone: Decreased. Muscle strength: 3 UE, e LE. DTR: 1 UE, 2+ LE. Plantar reflex: Neutral response bilaterally Gait: not able to walk. Sensory exam: no response to stimuli.. Not able to access cerebellar signs. F-T-N test not performed due to decreased response. Patient examined in CCU. Objective Objective Vital Signs Date Time Temp Pulse Resp B/P (MAP) Pulse Ox O2 Delivery O2 Flow Rate FiO2 08/08/19 13:00 116 22 141/70 (93) 100 Ventilator 08/08/19 12:00 101.2 101.2 Intake and Output 08/08/19 07:00 Intake Total 3962.19 ml Output Total 1985 ml Balance 1977.19 ml Intake Oral 0 ml IV Total 3722.19 ml Other 240 ml Output Urine Total 1935 ml Gastric Drainage Total 50 ml Vitals Signs Vitals VS - Last 72 Hours, by Label Date Time Temp Pulse Resp B/P (MAP) Pulse Ox O2 Delivery O2 Flow Rate FiO2 08/08/19 13:00 116 22 141/70 (93) 100 Ventilator 08/08/19 12:00 101.2 107 29 128/82 (97) 100 Ventilator 101.2 08/08/19 12:00 100 Ventilator 08/08/19 12:00 Mechanical Ventilator 08/08/19 11:00 116 25 142/82 (102) 100 Ventilator 08/08/19 10:00 105 22 166/81 (109) 100 Ventilator 08/08/19 09:00 115 25 149/86 (107) 98 Ventilator 08/08/19 08:03 100 Ventilator 08/08/19 08:00 101.2 113 24 117/76 (90) 100 Ventilator 101.2 08/08/19 08:00 Mechanical Ventilator 08/08/19 07:00 106 20 127/60 (82) 99 Ventilator 08/08/19 06:00 116 23 157/79 (105) 99 Ventilator 08/08/19 05:36 100 Ventilator 08/08/19 05:00 108 39 100 Ventilator 08/08/19 04:11 Mechanical Ventilator 08/08/19 04:00 100.8 118 35 141/83 (102) 100 Ventilator 100.8 08/08/19 03:00 104 30 141/83 (102) 100 Ventilator 08/08/19 02:00 100.2 108 29 112/67 (82) 100 Ventilator 100.2 08/08/19 01:51 100 Ventilator 08/08/19 01:00 106 26 137/71 (93) 100 Ventilator 08/08/19 00:05 100 Ventilator 08/08/19 00:00 100.5 104 26 140/84 (102) 100 Ventilator 100.5 08/08/19 00:00 Mechanical Ventilator 08/07/19 23:00 112 28 154/80 (104) 99 Ventilator 08/07/19 22:12 100 Ventilator 08/07/19 22:00 112 25 152/85 (107) 100 Ventilator 08/07/19 21:00 101.5 100 30 154/92 (112) 100 Ventilator 101.5 08/07/19 20:35 100 Ventilator 08/07/19 20:00 Mechanical Ventilator 08/07/19 20:00 100.9 100 28 139/84 (102) 100 Ventilator 100.9 08/07/19 19:00 88 27 119/79 (92) 100 Ventilator 08/07/19 18:00 87 26 122/73 (89) 100 Ventilator 08/07/19 17:00 90 24 126/72 (90) 100 Ventilator 08/07/19 16:00 99.6 108 20 130/73 (92) 100 Ventilator 99.6 08/07/19 16:00 Mechanical Ventilator 08/07/19 15:53 99 Ventilator 08/07/19 15:00 98 24 141/94 (110) 100 Ventilator 08/07/19 14:00 100.1 86 22 121/75 (90) 100 Ventilator 100.1 08/07/19 13:00 83 20 107/63 (78) 100 Ventilator 08/07/19 12:00 101.0 75 19 152/85 (107) 100 Ventilator 101.0 08/07/19 12:00 Mechanical Ventilator 08/07/19 11:30 99 Ventilator 08/07/19 11:00 90 24 152/72 (98) 100 Ventilator 08/07/19 10:00 92 22 134/86 (102) 100 Ventilator 08/07/19 09:00 88 22 116/70 (85) 100 Ventilator 08/07/19 08:00 99.0 85 24 110/61 (77) 100 Ventilator 99.0 08/07/19 08:00 Mechanical Ventilator 08/07/19 07:43 Ventilator 08/07/19 07:37 Ventilator 08/07/19 07:30 100 Ventilator 08/07/19 07:00 95 18 126/69 (88) 100 Ventilator Laboratory Laboratory Laboratory Tests Test 08/07/19 17:24 08/08/19 00:41 08/08/19 05:50 08/08/19 06:37 Glucose (Fingerstick) 117 mg/dL (70-99) 147 mg/dL (70-99) 136 mg/dL (70-99) White Blood Count 10.4 x10^3/uL (4.0-11.0) Red Blood Count 2.50 x10^6/uL (3.50-5.40) Hemoglobin 7.7 g/dL (12.0-15.5) Hematocrit 23.3 % (36.0-47.0) Mean Corpuscular Volume 93 fL (79-100) Mean Corpuscular Hemoglobin 31 pg (25-35) Mean Corpuscular Hemoglobin Concent 33 g/dL (31-37) Red Cell Distribution Width 18.1 % (11.5-14.5) Platelet Count 545 x10^3/uL (140-400) Neutrophils (%) (Auto) 75 % (31-73) Lymphocytes (%) (Auto) 15 % (24-48) Monocytes (%) (Auto) 10 % (0-9) Eosinophils (%) (Auto) 0 % (0-3) Basophils (%) (Auto) 0 % (0-3) Neutrophils # (Auto) 7.8 x10^3/uL (1.8-7.7) Lymphocytes # (Auto) 1.6 x10^3/uL (1.0-4.8) Monocytes # (Auto) 1.0 x10^3/uL (0.0-1.1) Eosinophils # (Auto) 0.0 x10^3/uL (0.0-0.7) Basophils # (Auto) 0.0 x10^3/uL (0.0-0.2) Sodium Level 141 mmol/L (136-145) Potassium Level 3.8 mmol/L (3.5-5.1) Chloride Level 104 mmol/L (98-107) Carbon Dioxide Level 25 mmol/L (21-32) Anion Gap 12 (6-14) Blood Urea Nitrogen 76 mg/dL (7-20) Creatinine 1.6 mg/dL (0.6-1.0) Estimated GFR (Cockcroft-Gault) 34.3 Glucose Level 133 mg/dL (70-99) Calcium Level 8.8 mg/dL (8.5-10.1) Phosphorus Level 4.0 mg/dL (2.6-4.7) Magnesium Level 1.7 mg/dL (1.8-2.4) Triglycerides Level 144 mg/dL (0-150) Test 08/08/19 12:23 Glucose (Fingerstick) 176 mg/dL (70-99) Microbiology 08/03/19 Aerobic and Anaerobic Culture - Final, Complete 08/03/19 Anaerobic Culture Result 1 (ALEXANDRA) - Final, Complete 08/03/19 Aerobic Culture - Final, Complete 08/03/19 Aerobic Culture Result 1 (ALEXANDRA) - Final, Complete 08/03/19 Gram Stain - Final, Complete 08/03/19 Gram Stain Result 1 (ALEXANDRA) - Final, Complete 08/03/19 Gram Stain Result 2 (ALEXANDRA) - Final, Complete 08/02/19 Blood Culture - Final, Complete NO GROWTH AFTER 5 DAYS 07/31/19 Urine Culture - Final, Complete 07/31/19 Urine Culture Result 1 (ALEXANDRA) - Final, Complete Medication Medications Current Medications Sodium Chloride 100 meq/Potassium Chloride 40 meq/ Magnesium Sulfate 15 meq/Calcium Gluconate 15 meq/ Multivitamins 10 ml/Chromium/ Copper/Manganese/ Seleni/Zn 0.5 ml/ Insulin Human Regular 35 unit/ Total Parenteral Nutrition/Amino Acids/Dextrose/ Fat Emulsion Intravenous 1,400 ml @ 58.333 mls/ hr TPN CONT IV Last administered on 08/07/19at 22:46; Start 08/07/19 at 22:00; Stop 08/08/19 at 21:59 Comment Review of Relevant I have reviewed the following items kolby (where applicable) has been applied. ZANDER ZUÑIGA MD Aug 08, 2019 13:48
[2019-08-08] MEDS: TPN PER PHARMACY MC PRN (14:21)
--- NOTE | 2019-08-08 14:24 | NUR ---
Pharmacy TPN Dosing Note S: SCOTT AVILA is a 48 year old F Currently receiving Central Continuous TPN started 07/06/19 B:Pertinent PMH: Necrotizing pancreatitis Height: 5 feet, 8 inches Weight: 106.4 kg Current diet: NPO LABS: Sodium: 141 Potassium: 3.8 Chloride: 104 Calcium: 8.8 Corrected Calcium: 9.76 Magnesium: 1.7 CO2: 25 SCr: 1.6 Glucose: 133-176 Albumin: 2.8 AST: 23 ALT: 11 TPN FORMULA: TPN TYPE: Central Continuous AMINO ACIDS: 125 gm DEXTROSE: 225 gm LIPIDS: 20 gm SODIUM CHLORIDE: 100 mEq SODIUM ACETATE: -- mEq SODIUM PHOSPHATE: - mmol POTASSIUM CHLORIDE: 40 mEq POTASSIUM ACETATE: -- mEq POTASSIUM PHOSPHATE: - mmol MAGNESIUM: 20 mEq CALCIUM: 15 mEq INSULIN: 35 units MULTIPLE VITAMIN: 10 ml TRACE ELEMENTS: 0.5 ml(s) TPN PLAN: Magnesium low; added 5meq magnesium to bag. No other changes, lytes and BG stable. BMP/mag in AM. R: Continue TPN as above. Will monitor electrolytes, glucose, and tolerance to TPN. CHRISTIAN VALLEJO [facility] [place], 08/08/19 [id number]
--- NOTE | 2019-08-08 15:13 | NUR ---
SS following up with discharge planning. SS reviewed pt chart and discussed with pt RN. Pt remains on the vent, trach, TPN, IV abx. SS received phone call from [facility] reporting that they spoke with pt's daughters today and pt's daughters notified them that they no longer want to cooperate with medicaid application process. Pt's daughters still have not gotten court order to access pt's finances. Pt has no DPOA and no living will. Pt needing LTAC but is self pay pt. SS will continue to follow for discharge planning.
[2019-08-08] MEDS: MAGNESIUM SULFATE 2GM 50 ML IV PRN (17:27)
--- NOTE | 2019-08-08 20:30 | NUR ---
Patient febrile with temp 101.2, Tylenol Supp administered and Dr Neri paged. Dr Neri returned paged, notified of fever, reviewed all blood cultures results and UA results. Per Dr Neri, nursing to treat fever but no new orders at this time.
--- NOTE | 2019-08-08 20:40 | NUR ---
Patient shakes head 'yes' when asked if having pain with CPOT 3 but patient doesn't have any medication ordered for pain, Dr Gordillo paged. Dr Gordillo returned page, notified of CPOT and no pain meds; order received for Fentanyl 25-50MG [id number] IVP, see orders.
[2019-08-08] MEDS ORDERED: fentaNYL PF VIAL 100 MCG/2 ML VIAL IVP PRN (21:00)
[2019-08-08] MEDS ORDERED: AMINO AC 3%/ELECTROLYTE/GLYCER 1,000 ML IV SCH (21:15)
[2019-08-08] MEDS: fentaNYL PF VIAL 100 MCG/2 ML VIAL IVP PRN (21:27)
[2019-08-08] MEDS ORDERED: [UNRECOGNIZED DRUG - OTHER] IV SCH ×10 (22:00)
[2019-08-08] MEDS ORDERED: DEXTROSE 70% IV SCH ×10 (22:00)
[2019-08-08] MEDS ORDERED: AMINO ACID IV SCH ×10 (22:00)
[2019-08-08] MEDS ORDERED: TOTAL PARENTERAL NUTRITION IV SCH ×10 (22:00)
[2019-08-09] VITALS (20 sets, daily range): BP systolic 84–161; BP diastolic 46–98
[2019-08-09] MEDS: INSULIN LISPRO 300 UNITS/3 ML VIAL. SQ SCH ×5 (00:06→23:34)
[2019-08-09] MEDS: fentaNYL PF VIAL 100 MCG/2 ML VIAL IVP PRN ×2 (02:23→20:12)
[2019-08-09] MEDS: DEXMEDETOMIDINE 400 MCG in IV NORMAL SALINE 100ML 96 ML IV PRN ×7 (03:38→23:00)
[2019-08-09] MEDS: ACETAMINOPHEN 650 MG SUPP.RECT. PR PRN ×2 (06:00→16:12)
[2019-08-09 06:50] LABS: CALCIUM 8.9 mg/dL (8.5-10.1); CREATININE 1.6 mg/dL (0.6-1.0); GFR 34.3; MAGNESIUM 2.2 mg/dL (1.8-2.4); POTASSIUM 3.7 mmol/L (3.5-5.1)
[2019-08-09] MEDS ORDERED: IV NORMAL SALINE 1000ML BAG 1,000 ML IV PRN ×2 (07:56)
[2019-08-09] MEDS ORDERED: DIALYSIS PATIENT. MC PRN ×2 (08:00)
[2019-08-09] MEDS ORDERED: ALBUMIN HUMAN 25% 200 ML IV PRN (08:00)
--- NOTE | 2019-08-09 08:09 | PDOC ---
Infectious Disease Note Subjective Subjective Not feeling well, abd pain present Remains on vent via trach, FiO2 35 % PEEP 5 SpO2 100% TPN cont to be febrile ROS ROS no n/v/d Vital Sign Vital Signs Vital Signs Date Time Temp Pulse Resp B/P (MAP) Pulse Ox O2 Delivery O2 Flow Rate FiO2 08/09/19 07:42 100 Ventilator 08/09/19 06:00 102.2 124 28 158/98 (118) 102.2 Physical Exam PHYSICAL EXAM GENERAL: Propped up in bed, resting quietly, arouses to voice HEENT: Pupils equal, + NGT, oral cavity dry NECK: Trach/vent LUNGS: rhonchi HEART: S1, S2, regular ABDOMEN: Distended, tender, hypoactive BS, : Lind (08/01) EXTREMITIES: Generalized edema, no cyanosis, SCDs bilaterally DERMATOLOGIC: Warm and dry. No generalized rash. CENTRAL NERVOUS SYSTEM: Nods appropriately to few questions, HDC & LIJ (08/01) clean Labs Lab Laboratory Tests Test 08/08/19 12:23 08/08/19 18:27 08/09/19 00:01 08/09/19 05:45 Glucose (Fingerstick) 176 mg/dL (70-99) 145 mg/dL (70-99) 170 mg/dL (70-99) Sodium Level 142 mmol/L (136-145) Potassium Level 3.7 mmol/L (3.5-5.1) Chloride Level 105 mmol/L (98-107) Carbon Dioxide Level 23 mmol/L (21-32) Anion Gap 14 (6-14) Blood Urea Nitrogen 89 mg/dL (7-20) Creatinine 1.6 mg/dL (0.6-1.0) Estimated GFR (Cockcroft-Gault) 34.3 Glucose Level 141 mg/dL (70-99) Calcium Level 8.9 mg/dL (8.5-10.1) Magnesium Level 2.2 mg/dL (1.8-2.4) Test 08/09/19 06:04 Glucose (Fingerstick) 136 mg/dL (70-99) Micro BC neg Abd culture neg, cell count not done Objective Assessment Leukocytosis 07/28 -improved Fever - New left IJ/Lind 08/01. PICC removed 08/01 -? pancreatitis. blood cults 4/10 neg. Urine - neg, Ascites s/p paracentesis 08/02 - 4300 ml. cultures neg to date Severe acute gallstone pancreatitis with necrosis -CT 08/01 necrotizing pancreatitis with fluid and phlegmon at the pancreas Hypotension off levaphed Joseph Pleural effusions JUANA requiring HD - s/p RIJ temporary dialysis catheter replacement, 07/20 Vent dependent respiratory failure -s/p Trach placement -lung opacities, COVID-19 neg Anasarca - worse Anemia - S/p PRBC 07/13 Hypocalcemia Prediabetes HTN Diarrhea, C. diff neg 07/10 Anemia - S/p PRBCs Plan Plan of Care cont merrem (07/26) and ,micafungin, and dapto Gen surgery following Maintain aspiration precautions Anemia deferred to primary CBC in am Critically ill zyvox changed to dapto , to rule out serotonin sy causing fever, I think sec to cont fever, and broad coverage, need to consider pancreatic n ecrosectomy D/w nursing KIMMY JONES MD Aug 09, 2019 08:09
--- NOTE | 2019-08-09 08:35 | PDOC ---
PULMONARY PROGRESS NOTES Subjective Patient intubated on 07/10 , s/p trach 07/24, Patient responding to verbal stimuli Vitals Vital Signs Date Time Temp Pulse Resp B/P (MAP) Pulse Ox O2 Delivery O2 Flow Rate FiO2 08/09/19 07:42 100 Ventilator 08/09/19 06:00 102.2 124 28 158/98 (118) 102.2 Comments ros unable to obtain on vent Lungs: Crackles, Other (dimished in BLL nc at perrl nose clear neck trach site ok no lad no thyromegaly) Cardiovascular: S1, S2 Abdomen: Soft, Non-tender, Other (distended) Extremities: Other (+3 generalized edema ) Skin: Warm, Dry Labs Laboratory Tests Test 08/07/19 11:30 08/07/19 11:50 08/07/19 17:24 08/08/19 00:41 O2 Saturation 96 % (92-99) Arterial Blood pH 7.47 (7.35-7.45) Arterial Blood pCO2 at Patient Temp 36 mmHg (35-46) Arterial Blood pO2 at Patient Temp 88 mmHg (75-108) Arterial Blood HCO3 25 mmol/L (21-28) Arterial Blood Base Excess 1 mmol/L (-3-3) FiO2 35%+5peep Glucose (Fingerstick) 165 mg/dL (70-99) 117 mg/dL (70-99) 147 mg/dL (70-99) Test 08/08/19 05:50 08/08/19 06:37 08/08/19 12:23 08/08/19 18:27 White Blood Count 10.4 x10^3/uL (4.0-11.0) Red Blood Count 2.50 x10^6/uL (3.50-5.40) Hemoglobin 7.7 g/dL (12.0-15.5) Hematocrit 23.3 % (36.0-47.0) Mean Corpuscular Volume 93 fL (79-100) Mean Corpuscular Hemoglobin 31 pg (25-35) Mean Corpuscular Hemoglobin Concent 33 g/dL (31-37) Red Cell Distribution Width 18.1 % (11.5-14.5) Platelet Count 545 x10^3/uL (140-400) Neutrophils (%) (Auto) 75 % (31-73) Lymphocytes (%) (Auto) 15 % (24-48) Monocytes (%) (Auto) 10 % (0-9) Eosinophils (%) (Auto) 0 % (0-3) Basophils (%) (Auto) 0 % (0-3) Neutrophils # (Auto) 7.8 x10^3/uL (1.8-7.7) Lymphocytes # (Auto) 1.6 x10^3/uL (1.0-4.8) Monocytes # (Auto) 1.0 x10^3/uL (0.0-1.1) Eosinophils # (Auto) 0.0 x10^3/uL (0.0-0.7) Basophils # (Auto) 0.0 x10^3/uL (0.0-0.2) Sodium Level 141 mmol/L (136-145) Potassium Level 3.8 mmol/L (3.5-5.1) Chloride Level 104 mmol/L (98-107) Carbon Dioxide Level 25 mmol/L (21-32) Anion Gap 12 (6-14) Blood Urea Nitrogen 76 mg/dL (7-20) Creatinine 1.6 mg/dL (0.6-1.0) Estimated GFR (Cockcroft-Gault) 34.3 Glucose Level 133 mg/dL (70-99) Calcium Level 8.8 mg/dL (8.5-10.1) Phosphorus Level 4.0 mg/dL (2.6-4.7) Magnesium Level 1.7 mg/dL (1.8-2.4) Triglycerides Level 144 mg/dL (0-150) Glucose (Fingerstick) 136 mg/dL (70-99) 176 mg/dL (70-99) 145 mg/dL (70-99) Test 08/09/19 00:01 08/09/19 05:45 08/09/19 06:04 Glucose (Fingerstick) 170 mg/dL (70-99) 136 mg/dL (70-99) Sodium Level 142 mmol/L (136-145) Potassium Level 3.7 mmol/L (3.5-5.1) Chloride Level 105 mmol/L (98-107) Carbon Dioxide Level 23 mmol/L (21-32) Anion Gap 14 (6-14) Blood Urea Nitrogen 89 mg/dL (7-20) Creatinine 1.6 mg/dL (0.6-1.0) Estimated GFR (Cockcroft-Gault) 34.3 Glucose Level 141 mg/dL (70-99) Calcium Level 8.9 mg/dL (8.5-10.1) Magnesium Level 2.2 mg/dL (1.8-2.4) Laboratory Tests Test 08/08/19 12:23 08/08/19 18:27 08/09/19 00:01 08/09/19 05:45 Glucose (Fingerstick) 176 mg/dL (70-99) 145 mg/dL (70-99) 170 mg/dL (70-99) Sodium Level 142 mmol/L (136-145) Potassium Level 3.7 mmol/L (3.5-5.1) Chloride Level 105 mmol/L (98-107) Carbon Dioxide Level 23 mmol/L (21-32) Anion Gap 14 (6-14) Blood Urea Nitrogen 89 mg/dL (7-20) Creatinine 1.6 mg/dL (0.6-1.0) Estimated GFR (Cockcroft-Gault) 34.3 Glucose Level 141 mg/dL (70-99) Calcium Level 8.9 mg/dL (8.5-10.1) Magnesium Level 2.2 mg/dL (1.8-2.4) Test 08/09/19 06:04 Glucose (Fingerstick) 136 mg/dL (70-99) Medications Active Scripts Medications Dose Route/Sig Max Daily Dose Days Date Category Bisoprolol Fumarate 5 Mg Tablet 10 Mg PO DAILY 07/04/19 Reported Impression . IMPRESSION: 1. Acute hypoxemic respiratory failure secondary to ARDS status post trach, 2. Gallstone pancreatitis 3. Severe metabolic acidosis.stable 4. Acute kidney injury-stable, ON HD-- continue to improve 5. Acute gallstone pancreatitis. 6. Hypoalbuminemia. 7. Moderate persistent effusions 8. Fever-persist. Per ID, per surgery 9. Chronic anemia 10. Covid 19 testing negative 11. Moderate to large ascites-S/P paracentisis S/P paracentisis with 4 liters removed on 08/03/19 Plan . Not ready for weaning trials. hep sq and protonix for prophylaxis Follow surgery recs Follow ID rec, abx per id Follow nephrology recs Nutritional support per surgery continue TPN for nutrition DVT/GI PPX d/w RN/RT HARMEET BEE MD Aug 09, 2019 08:35
[2019-08-09] MEDS ORDERED: DAPTOmycin (GENERIC) IVPB 430 MG in IV NORMAL SALINE 50ML 50 ML IV SCH (09:00)
--- NOTE | 2019-08-09 09:47 | PDOC ---
SUBJECTIVE ROS stable , awake, Nods OBJECTIVE Vital Signs Vital Signs Date Time Temp Pulse Resp B/P (MAP) Pulse Ox O2 Delivery O2 Flow Rate FiO2 08/09/19 07:42 100 Ventilator 08/09/19 06:00 102.2 124 28 158/98 (118) 102.2 I & 0 Intake and Output 08/09/19 07:00 Intake Total 3489.1 ml Output Total 2855 ml Balance 634.1 ml IV Total 3489.1 ml Output Urine Total 2655 ml Gastric Drainage Total 200 ml PHYSICAL EXAM Physical Exam GENERAL: arouses to voice HEENT: + NGT, NECK: Trach/vent LUNGS: rhonchi HEART: S1, S2, regular ABDOMEN: Distended, tender, hypoactive BS, : Lind (08/01) EXTREMITIES: Generalized edema, no cyanosis, DERMATOLOGIC: No generalized rash. CENTRAL NERVOUS SYSTEM: Nods appropriately to few questions, HDC (08/01) DIAGNOSIS/ASSESSMENT Assessment & Plan ARF-- ATN,TTS schedule seen on HD , tolerating well, discussed and reviewed treatment plan with Boy UOP improved, Cr stable, BUN elevated ,Re-eval on for HD , Monitor for renal recovery Anemia- Currently on HIRAM Anasarca due to 3rd spacing stable Hyperkalemia- resolved AC Pancreatitis, early developing necrosis No intervention per GS CT SCAN 08/01 - Diffuse pancreatic necrosi,extensive retroperitoneal fluid and inflammation, Cholelithiasis. Moderate to large volume ascites with little change. Ascites - post paracentesis on 08/02- 4300 cc of thin, light brown fluid was removed Cholelithiasis with thickening of the gallbladder wall. Acute hypoxic resp failure ,bilateral pleural effusion Has Trach, On Vent Persistent pleural effusions and atelectasis in the lung bases. hypocalcemia - stable HTN- Hypotensive , pressors as indicated COVID-19 neg, 07/13 COMMENT/RELEVANT DATA Meds Current Medications Medications (Trade) Dose Ordered Sig/Yvon Start Time Stop Time Status Last Admin Dose Admin Acetaminophen (Tylenol Supp) 650 mg PRN Q6HRS PRN 07/12/19 10:30 08/09/19 06:00 650 MG Acetaminophen (Tylenol) 650 mg PRN Q6HRS PRN 07/09/19 03:36 08/04/19 19:56 650 MG Albumin Human 200 ml @ 200 mls/hr 1X PRN PRN 08/09/19 08:00 08/09/19 13:59 08/09/19 08:40 200 MLS/HR Albuterol Sulfate (Ventolin Neb Soln) 2.5 mg 1X ONCE 07/05/19 22:30 07/05/19 22:31 DC 07/06/19 00:56 2.5 MG Alteplase, Recombinant (Cathflo For Central Catheter Clearance) 1 mg 1X ONCE 07/19/19 22:00 07/19/19 22:01 DC 07/19/19 22:05 1 MG Amino Acids/ Glycerin/ Electrolytes 1,000 ml @ 75 mls/hr [id number] 08/08/19 21:15 UNV Artificial Tears (Artificial Tears) 1 drop PRN Q1HR PRN 07/11/19 08:15 Atenolol (Tenormin) 100 mg DAILY 07/05/19 09:00 07/04/19 20:08 DC Atropine Sulfate (ATROPINE 0.5mg SYRINGE) 0.5 mg PRN Q5MIN PRN 07/21/19 08:15 Benzocaine (Hurricaine One) 1 spray 1X ONCE 07/08/19 14:30 07/08/19 14:31 DC 07/08/19 16:38 1 SPRAY Bupivacaine HCl/ Epinephrine Bitart (Sensorcain-Epi 0.5%-1:[id number] Mpf) 30 ml STK-MED ONCE 07/25/19 11:00 07/25/19 11:01 DC 07/25/19 11:44 1 ML Calcium Carbonate/ Glycine (Tums) 500 mg PRN [id number] PRN 07/06/19 17:45 Calcium Chloride 1000 mg/Sodium Chloride 110 ml @ 220 mls/hr 1X ONCE 07/05/19 22:30 07/05/19 22:59 DC 07/05/19 22:11 220 MLS/HR Calcium Chloride 3000 mg/Sodium Chloride 1,030 ml @ 50 mls/hr [id number] 07/07/19 08:00 07/09/19 15:23 DC 07/09/19 02:17 50 MLS/HR Calcium Gluconate (Calcium Gluconate) 2,000 mg 1X ONCE 07/07/19 02:15 07/07/19 02:16 DC 3/19/20 02:19 2,000 MG Calcium Gluconate 1000 mg/Sodium Chloride 110 ml @ 220 mls/hr 1X ONCE 07/06/19 03:30 07/06/19 03:59 DC 07/06/19 03:21 220 MLS/HR Calcium Gluconate 2000 mg/Sodium Chloride 120 ml @ 220 mls/hr 1X ONCE 07/06/19 07:30 07/06/19 08:02 DC 07/06/19 09:05 220 MLS/HR Cefepime HCl (Maxipime) 2 gm Q12HR 07/13/19 09:00 07/27/19 09:58 DC 07/26/19 20:56 2 GM Cellulose (Surgicel Fibrillar 1x2) 1 each STK-MED ONCE 07/25/19 11:00 07/25/19 11:01 DC Cellulose (Surgicel Hemostat 4x8) 1 each STK-MED ONCE 07/25/19 11:55 07/25/19 11:56 DC 07/25/19 11:44 1 EACH Daptomycin 430 mg/ Sodium Chloride 50 ml @ 100 mls/hr Q24H 08/09/19 09:00 Daptomycin 500 mg/ Sodium Chloride 50 ml @ 100 mls/hr Q48H 07/13/19 08:30 07/29/19 10:07 DC 07/29/19 09:57 100 MLS/HR Dexmedetomidine HCl 400 mcg/ Sodium Chloride 100 ml @ 0 mls/hr CONT PRN 07/21/19 08:15 08/09/19 06:49 30.5 MLS/HR Dextrose (Dextrose 50%-Water Syringe) 12.5 gm PRN Q15MIN PRN 07/04/19 09:30 Digoxin (Lanoxin) 125 mcg 1X ONCE 07/07/19 18:00 07/07/19 18:01 DC 07/07/19 17:10 125 MCG Diphenhydramine HCl (Benadryl) 25 mg 1X PRN PRN 08/01/19 09:45 08/02/19 09:44 DC Enoxaparin Sodium (Lovenox 100mg Syringe) 100 mg Q12HR 08/09/19 21:00 UNV Etomidate (Amidate) 8 mg 1X ONCE 07/11/19 08:30 07/11/19 08:31 DC 07/11/19 08:33 8 MG Fentanyl Citrate (Fentanyl 2ml Vial) 25 mcg PRN Q2HR PRN 08/08/19 21:00 Furosemide (Lasix) 40 mg 1X ONCE 08/01/19 14:30 08/01/19 14:31 DC 08/01/19 14:39 40 MG Heparin Sodium (Porcine) (Hep Lock Adult) 500 unit STK-MED ONCE 07/26/19 09:29 07/26/19 09:30 DC Heparin Sodium (Porcine) (Heparin Sodium) 5,000 unit Q12HR 07/22/19 21:00 08/08/19 21:30 5,000 UNIT Hydromorphone HCl (Dilaudid) 1 mg PRN Q3HRS PRN 07/05/19 12:00 07/19/19 00:25 DC 07/11/19 05:13 1 MG Info (CONTRAST GIVEN -- Rx MONITORING) 1 each PRN DAILY PRN 07/18/19 11:45 07/20/19 11:44 DC Info (Icu Electrolyte Protocol) 1 ea CONT PRN PRN 07/17/19 13:15 Info (PHARMACY MONITORING -- do not chart) 1 each PRN DAILY PRN 08/09/19 08:00 UNV Info (Tpn Per Pharmacy) 1 each PRN DAILY PRN 07/06/19 12:30 UNV Insulin Human Lispro (HumaLOG) 0-9 UNITS Q6HRS 07/04/19 09:30 08/09/19 00:06 4 UNITS Insulin Human Regular (HumuLIN R VIAL) 5 unit 1X ONCE 07/05/19 22:30 07/05/19 22:31 DC 07/05/19 22:14 5 UNIT Iohexol (Omnipaque 240 Mg/ml) 30 ml 1X ONCE 07/18/19 11:30 07/18/19 11:33 DC 07/18/19 11:30 30 ML Iohexol (Omnipaque 300 Mg/ml) 60 ml 1X ONCE 07/05/19 17:00 07/05/19 17:01 DC 07/05/19 17:20 60 ML Iohexol (Omnipaque 350 Mg/ml) 90 ml 1X ONCE 07/04/19 03:30 07/04/19 03:31 DC 07/04/19 03:25 90 ML Ketorolac Tromethamine (Toradol 30mg Vial) 30 mg 1X ONCE 07/04/19 03:00 07/04/19 03:01 DC 07/04/19 02:54 30 MG Lidocaine HCl (Buffered Lidocaine 1%) 6 ml 1X ONCE 08/03/19 13:30 08/03/19 13:31 DC 08/03/19 13:45 9 ML Lidocaine HCl (Glydo (Lidocaine) Jelly) 1 ramu 1X ONCE 07/08/19 14:30 07/08/19 14:31 DC 07/08/19 16:38 1 RAMU Lidocaine HCl (Xylocaine-Mpf 1% 2ml Vial) 2 ml PRN 1X PRN 07/25/19 07:00 07/26/19 06:59 DC Linezolid/Dextrose 300 ml @ 300 mls/hr Q12HR 07/29/19 11:00 08/09/19 08:10 DC 08/08/19 20:40 300 MLS/HR Lorazepam (Ativan Inj) 1 mg PRN Q4HRS PRN 07/07/19 09:00 08/05/19 09:19 DC 08/05/19 03:51 1 MG Magnesium Sulfate 50 ml @ 25 mls/hr PRN DAILY PRN 07/24/19 09:15 08/08/19 17:27 25 MLS/HR Meropenem 1 gm/ Sodium Chloride 100 ml @ 200 mls/hr Q8HRS 07/05/19 20:00 07/06/19 08:48 DC 07/06/19 05:45 200 MLS/HR Meropenem 500 mg/ Sodium Chloride 50 ml @ 100 mls/hr Q12H 07/27/19 10:00 08/08/19 22:17 100 MLS/HR Metoprolol Tartrate (Lopressor Vial) 5 mg Q6HRS 07/05/19 10:15 07/16/19 08:48 DC 07/14/19 00:12 5 MG Metronidazole 100 ml @ 100 mls/hr Q8HRS 08/02/19 10:00 08/09/19 08:10 DC 08/09/19 06:04 100 MLS/HR Micafungin Sodium 100 mg/Dextrose 100 ml @ 100 mls/hr Q24H 07/11/19 09:00 08/08/19 09:16 100 MLS/HR Midazolam HCl (Versed) 5 mg 1X ONCE 07/11/19 08:30 07/11/19 08:31 DC Midazolam HCl 100 mg/Sodium Chloride 100 ml @ 7 mls/hr CONT PRN 07/16/19 16:00 07/27/19 15:35 7 MLS/HR Midazolam HCl 50 mg/Sodium Chloride 50 ml @ 0 mls/hr CONT PRN 07/11/19 08:15 07/16/19 15:59 DC 07/14/19 22:39 7 MLS/HR Morphine Sulfate (Morphine Sulfate) 2 mg PRN Q2HR PRN 07/04/19 05:00 07/05/19 14:15 DC 07/05/19 12:26 2 MG Multi-Ingred Cream/Lotion/Oil/ Oint (Artificial Tears Eye Ointment) 1 ramu PRN Q1HR PRN 07/13/19 17:30 08/01/19 08:19 1 RAMU Norepinephrine Bitartrate 8 mg/ Dextrose 258 ml @ 17.299 mls/ hr CONT PRN 07/05/19 15:30 08/05/19 09:19 DC 08/02/19 12:48 20.9 MLS/HR Ondansetron HCl (Zofran) 4 mg PRN Q6HRS PRN 07/25/19 07:00 07/26/19 06:59 DC Pantoprazole Sodium (PROTONIX VIAL for IV PUSH) 40 mg DAILYAC 07/04/19 11:30 08/08/19 09:16 40 MG Piperacillin Sod/ Tazobactam Sod 4.5 gm/Sodium Chloride 100 ml @ 200 mls/hr 1X ONCE 07/04/19 06:00 07/04/19 06:29 DC 07/04/19 05:44 200 MLS/HR Potassium Chloride 15 meq/ Bicarbonate Dialysis Soln w/ out KCl 5,007.5 ml @ 1,000 mls/ hr Q5H1M 07/17/19 20:00 07/21/19 13:08 DC 07/20/19 18:14 1,000 MLS/HR Potassium Chloride 20 meq/ Bicarbonate Dialysis Soln w/ out KCl 5,010 ml @ 1,000 mls/hr Q5H1M 07/13/19 16:00 07/17/19 19:59 DC 07/17/19 14:54 1,000 MLS/HR Potassium Chloride/Water 100 ml @ 100 mls/hr 1X ONCE 08/06/19 14:45 08/06/19 15:44 DC 08/06/19 17:28 100 MLS/HR Potassium Phosphate 20 mmol/ Sodium Chloride 106.6667 ml @ 51.667 m... 1X ONCE 07/13/19 13:00 07/13/19 15:03 DC 07/13/19 12:51 51.667 MLS/HR Prochlorperazine Edisylate (Compazine) 5 mg PACU PRN PRN 07/25/19 07:00 07/26/19 06:59 DC Propofol 20 ml @ As Directed STK-MED ONCE 07/25/19 11:07 07/25/19 11:07 DC Ringer's Solution 1,000 ml @ 30 mls/hr Q24H 07/25/19 07:00 07/25/19 18:59 DC Sevoflurane (Ultane) 60 ml STK-MED ONCE 07/25/19 12:46 07/25/19 12:46 DC Sodium Bicarbonate 50 meq/Sodium Chloride 1,050 ml @ 75 mls/hr Q14H 07/06/19 07:30 07/11/19 10:28 DC 07/10/19 21:10 75 MLS/HR Sodium Chloride 1,000 ml @ 400 mls/hr Q2H30M PRN 08/09/19 07:56 08/09/19 19:55 Sodium Chloride (Normal Saline Flush) 20 ml PRN Q5MIN PRN 08/02/19 15:00 Sodium Chloride 90 meq/Calcium Gluconate 10 meq/ Multivitamins 10 ml/Chromium/ Copper/Manganese/ Seleni/Zn 0.5 ml/ Total Parenteral Nutrition/Amino Acids/Dextrose/ Fat Emulsion Intravenous 1,512 ml @ 63 mls/hr TPN CONT 07/06/19 22:00 07/07/19 21:59 DC 07/06/19 22:06 63 MLS/HR Sodium Chloride 90 meq/Calcium Gluconate 10 meq/ Multivitamins 10 ml/Chromium/ Copper/Manganese/ Seleni/Zn 1 ml/ Total Parenteral Nutrition/Amino Acids/Dextrose/ Fat Emulsion Intravenous 55.005 ml @ 2.292 mls/hr TPN CONT 07/06/19 22:00 07/06/19 12:33 DC Sodium Chloride 90 meq/Magnesium Sulfate 10 meq/ Calcium Gluconate 20 meq/ Multivitamins 10 ml/Chromium/ Copper/Manganese/ Seleni/Zn 0.5 ml/ Total Parenteral Nutrition/Amino Acids/Dextrose/ Fat Emulsion Intravenous 1,512 ml @ 63 mls/hr TPN CONT 07/07/19 22:00 07/08/19 21:59 DC 07/07/19 22:25 63 MLS/HR Sodium Chloride 90 meq/Magnesium Sulfate 12 meq/ Calcium Gluconate 15 meq/ Multivitamins 10 ml/Chromium/ Copper/Manganese/ Seleni/Zn 0.5 ml/ Insulin Human Regular 25 unit/ Total Parenteral Nutrition/Amino Acids/Dextrose/ Fat Emulsion Intravenous 1,400 ml @ 58.333 mls/ hr TPN CONT 07/27/19 22:00 07/28/19 21:59 DC 07/27/19 21:41 58.333 MLS/HR Sodium Chloride 90 meq/Potassium Chloride 15 meq/ Magnesium Sulfate 12 meq/Calcium Gluconate 15 meq/ Multivitamins 10 ml/Chromium/ Copper/Manganese/ Seleni/Zn 0.5 ml/ Insulin Human Regular 25 unit/ Total Parenteral Nutrition/Amino Acids/Dextrose/ Fat Emulsion Intravenous 1,400 ml @ 58.333 mls/ hr TPN CONT 07/26/19 22:00 07/27/19 21:59 DC 07/26/19 22:13 58.333 MLS/HR Sodium Chloride 90 meq/Potassium Chloride 15 meq/ Potassium Phosphate 10 mmol/ Magnesium Sulfate 8 meq/Calcium Gluconate 15 meq/ Multivitamins 10 ml/Chromium/ Copper/Manganese/ Seleni/Zn 0.5 ml/ Insulin Human Regular 25 unit/ Total Parenteral Nutrition/Amino Acids/Dextrose/ Fat Emulsion Intravenous 1,400 ml @ 58.333 mls/ hr TPN CONT 07/24/19 22:00 07/25/19 21:59 DC 07/24/19 21:20 58.333 MLS/HR Sodium Chloride 90 meq/Potassium Chloride 15 meq/ Potassium Phosphate 10 mmol/ Magnesium Sulfate 10 meq/Calcium Gluconate 20 meq/ Multivitamins 10 ml/Chromium/ Copper/Manganese/ Seleni/Zn 0.5 ml/ Total Parenteral Nutrition/Amino Acids/Dextrose/ Fat Emulsion Intravenous 1,400 ml @ 58.333 mls/ hr TPN CONT 07/11/19 22:00 07/12/19 21:59 DC 07/11/19 21:42 58.333 MLS/HR Sodium Chloride 90 meq/Potassium Chloride 15 meq/ Potassium Phosphate 10 mmol/ Magnesium Sulfate 12 meq/Calcium Gluconate 15 meq/ Multivitamins 10 ml/Chromium/ Copper/Manganese/ Seleni/Zn 0.5 ml/ Insulin Human Regular 25 unit/ Total Parenteral Nutrition/Amino Acids/Dextrose/ Fat Emulsion Intravenous 1,400 ml @ 58.333 mls/ hr TPN CONT 07/25/19 22:00 07/26/19 21:59 DC 07/25/19 22:24 58.333 MLS/HR Sodium Chloride 90 meq/Potassium Chloride 15 meq/ Potassium Phosphate 15 mmol/ Magnesium Sulfate 10 meq/Calcium Gluconate 15 meq/ Multivitamins 10 ml/Chromium/ Copper/Manganese/ Seleni/Zn 0.5 ml/ Total Parenteral Nutrition/Amino Acids/Dextrose/ Fat Emulsion Intravenous 1,400 ml @ 58.333 mls/ hr TPN CONT 07/12/19 22:00 07/13/19 21:59 DC 07/12/19 22:17 58.333 MLS/HR Sodium Chloride 90 meq/Potassium Chloride 15 meq/ Potassium Phosphate 15 mmol/ Magnesium Sulfate 10 meq/Calcium Gluconate 20 meq/ Multivitamins 10 ml/Chromium/ Copper/Manganese/ Seleni/Zn 0.5 ml/ Total Parenteral Nutrition/Amino Acids/Dextrose/ Fat Emulsion Intravenous 1,200 ml @ 50 mls/hr TPN CONT 07/10/19 22:00 07/10/19 14:17 DC Sodium Chloride 90 meq/Potassium Chloride 15 meq/ Potassium Phosphate 18 mmol/ Magnesium Sulfate 8 meq/Calcium Gluconate 15 meq/ Multivitamins 10 ml/Chromium/ Copper/Manganese/ Seleni/Zn 0.5 ml/ Insulin Human Regular 10 unit/ Total Parenteral Nutrition/Amino Acids/Dextrose/ Fat Emulsion Intravenous 1,400 ml @ 58.333 mls/ hr TPN CONT 07/15/19 22:00 07/16/19 21:59 DC 07/15/19 21:43 58.333 MLS/HR Sodium Chloride 90 meq/Potassium Chloride 15 meq/ Potassium Phosphate 18 mmol/ Magnesium Sulfate 8 meq/Calcium Gluconate 15 meq/ Multivitamins 10 ml/Chromium/ Copper/Manganese/ Seleni/Zn 0.5 ml/ Insulin Human Regular 15 unit/ Total Parenteral Nutrition/Amino Acids/Dextrose/ Fat Emulsion Intravenous 1,400 ml @ 58.333 mls/ hr TPN CONT 07/18/19 22:00 07/19/19 21:59 DC 07/18/19 21:47 58.333 MLS/HR Sodium Chloride 90 meq/Potassium Chloride 15 meq/ Potassium Phosphate 18 mmol/ Magnesium Sulfate 8 meq/Calcium Gluconate 15 meq/ Multivitamins 10 ml/Chromium/ Copper/Manganese/ Seleni/Zn 0.5 ml/ Insulin Human Regular 20 unit/ Total Parenteral Nutrition/Amino Acids/Dextrose/ Fat Emulsion Intravenous 1,400 ml @ 58.333 mls/ hr TPN CONT 07/21/19 22:00 07/22/19 21:59 DC 07/21/19 22:45 58.333 MLS/HR Sodium Chloride 90 meq/Potassium Chloride 15 meq/ Potassium Phosphate 18 mmol/ Magnesium Sulfate 8 meq/Calcium Gluconate 15 meq/ Multivitamins 10 ml/Chromium/ Copper/Manganese/ Seleni/Zn 0.5 ml/ Total Parenteral Nutrition/Amino Acids/Dextrose/ Fat Emulsion Intravenous 1,400 ml @ 58.333 mls/ hr TPN CONT 07/14/19 22:00 07/15/19 21:59 DC 07/14/19 22:00 58.333 MLS/HR Sodium Chloride 90 meq/Potassium Phosphate 15 mmol/ Magnesium Sulfate 12 meq/Calcium Gluconate 15 meq/ Multivitamins 10 ml/Chromium/ Copper/Manganese/ Seleni/Zn 0.5 ml/ Insulin Human Regular 30 unit/ Total Parenteral Nutrition/Amino Acids/Dextrose/ Fat Emulsion Intravenous 1,400 ml @ 58.333 mls/ hr TPN CONT 07/29/19 22:00 07/30/19 21:59 DC 07/29/19 21:49 58.333 MLS/HR Sodium Chloride 90 meq/Potassium Phosphate 15 mmol/ Magnesium Sulfate 12 meq/Calcium Gluconate 15 meq/ Multivitamins 10 ml/Chromium/ Copper/Manganese/ Seleni/Zn 0.5 ml/ Insulin Human Regular 40 unit/ Total Parenteral Nutrition/Amino Acids/Dextrose/ Fat Emulsion Intravenous 1,400 ml @ 58.333 mls/ hr TPN CONT 07/30/19 22:00 07/31/19 21:59 DC 07/30/19 21:21 58.333 MLS/HR Sodium Chloride 90 meq/Potassium Phosphate 19 mmol/ Magnesium Sulfate 12 meq/Calcium Gluconate 15 meq/ Multivitamins 10 ml/Chromium/ Copper/Manganese/ Seleni/Zn 0.5 ml/ Insulin Human Regular 40 unit/ Total Parenteral Nutrition/Amino Acids/Dextrose/ Fat Emulsion Intravenous 1,400 ml @ 58.333 mls/ hr TPN CONT 07/31/19 22:00 08/01/19 21:59 DC 07/31/19 21:54 58.333 MLS/HR Sodium Chloride 90 meq/Potassium Phosphate 5 mmol/ Magnesium Sulfate 12 meq/Calcium Gluconate 15 meq/ Multivitamins 10 ml/Chromium/ Copper/Manganese/ Seleni/Zn 0.5 ml/ Insulin Human Regular 30 unit/ Total Parenteral Nutrition/Amino Acids/Dextrose/ Fat Emulsion Intravenous 1,400 ml @ 58.333 mls/ hr TPN CONT 07/28/19 22:00 07/29/19 21:59 DC 07/28/19 22:08 58.333 MLS/HR Sodium Chloride 100 meq/Potassium Chloride 40 meq/ Magnesium Sulfate 15 meq/Calcium Gluconate 15 meq/ Multivitamins 10 ml/Chromium/ Copper/Manganese/ Seleni/Zn 0.5 ml/ Insulin Human Regular 35 unit/ Total Parenteral Nutrition/Amino Acids/Dextrose/ Fat Emulsion Intravenous 1,400 ml @ 58.333 mls/ hr TPN CONT 08/07/19 22:00 08/08/19 21:59 DC 08/07/19 22:46 58.333 MLS/HR Sodium Chloride 100 meq/Potassium Chloride 40 meq/ Magnesium Sulfate 20 meq/Calcium Gluconate 15 meq/ Multivitamins 10 ml/Chromium/ Copper/Manganese/ Seleni/Zn 0.5 ml/ Insulin Human Regular 35 unit/ Total Parenteral Nutrition/Amino Acids/Dextrose/ Fat Emulsion Intravenous 1,400 ml @ 58.333 mls/ hr TPN CONT 08/08/19 22:00 08/09/19 21:59 08/08/19 22:31 58.333 MLS/HR Sodium Chloride 100 meq/Potassium Phosphate 10 mmol/ Magnesium Sulfate 12 meq/Calcium Gluconate 15 meq/ Multivitamins 10 ml/Chromium/ Copper/Manganese/ Seleni/Zn 0.5 ml/ Insulin Human Regular 35 unit/ Potassium Chloride 20 meq/ Total Parenteral Nutrition/Amino Acids/Dextrose/ Fat Emulsion Intravenous 1,400 ml @ 58.333 mls/ hr TPN CONT 08/04/19 22:00 08/05/19 21:59 DC 08/04/19 22:10 58.333 MLS/HR Sodium Chloride 100 meq/Potassium Phosphate 19 mmol/ Magnesium Sulfate 12 meq/Calcium Gluconate 15 meq/ Multivitamins 10 ml/Chromium/ Copper/Manganese/ Seleni/Zn 0.5 ml/ Insulin Human Regular 40 unit/ Potassium Chloride 20 meq/ Total Parenteral Nutrition/Amino Acids/Dextrose/ Fat Emulsion Intravenous 1,400 ml @ 58.333 mls/ hr TPN CONT 08/03/19 22:00 08/04/19 21:59 DC 08/03/19 21:20 58.333 MLS/HR Sodium Chloride 100 meq/Potassium Phosphate 5 mmol/ Magnesium Sulfate 12 meq/Calcium Gluconate 15 meq/ Multivitamins 10 ml/Chromium/ Copper/Manganese/ Seleni/Zn 0.5 ml/ Insulin Human Regular 35 unit/ Potassium Chloride 20 meq/ Total Parenteral Nutrition/Amino Acids/Dextrose/ Fat Emulsion Intravenous 1,400 ml @ 58.333 mls/ hr TPN CONT 08/05/19 22:00 08/06/19 21:59 DC 08/05/19 22:59 58.333 MLS/HR Succinylcholine Chloride (Anectine) 120 mg 1X ONCE 07/11/19 08:30 07/11/19 08:31 DC 07/11/19 08:34 120 MG Lab Laboratory Tests Test 08/08/19 12:23 08/08/19 18:27 08/09/19 00:01 08/09/19 05:45 Glucose (Fingerstick) 176 mg/dL (70-99) 145 mg/dL (70-99) 170 mg/dL (70-99) Sodium Level 142 mmol/L (136-145) Potassium Level 3.7 mmol/L (3.5-5.1) Chloride Level 105 mmol/L (98-107) Carbon Dioxide Level 23 mmol/L (21-32) Anion Gap 14 (6-14) Blood Urea Nitrogen 89 mg/dL (7-20) Creatinine 1.6 mg/dL (0.6-1.0) Estimated GFR (Cockcroft-Gault) 34.3 Glucose Level 141 mg/dL (70-99) Calcium Level 8.9 mg/dL (8.5-10.1) Magnesium Level 2.2 mg/dL (1.8-2.4) Test 08/09/19 06:04 Glucose (Fingerstick) 136 mg/dL (70-99) Results All relevant outside records, renal labs, imaging studies, telemetry/EKG's were reviewed. VERENA KENT MD Aug 09, 2019 09:47
--- NOTE | 2019-08-09 10:05 | PDOC ---
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 [employer] [employer] 08/09/19 1005: SURGICAL PROGRESS NOTE Subjective seen during dialysis fevers--d/w ID--asking about operative intervention Vital Signs Vital Signs Date Time Temp Pulse Resp B/P (MAP) Pulse Ox O2 Delivery O2 Flow Rate FiO2 08/09/19 07:42 100 Ventilator 08/09/19 06:00 102.2 124 28 158/98 (118) 102.2 I&O Intake and Output 08/09/19 07:00 Intake Total 3489.1 ml Output Total 2855 ml Balance 634.1 ml IV Total 3489.1 ml Output Urine Total 2655 ml Gastric Drainage Total 200 ml PATIENT HAS A ROSARIO: Yes General: Alert, Cooperative Abdomen: Other (distended ) Labs Laboratory Tests Test 08/07/19 11:30 08/07/19 11:50 08/07/19 17:24 08/08/19 00:41 O2 Saturation 96 % (92-99) Arterial Blood pH 7.47 (7.35-7.45) Arterial Blood pCO2 at Patient Temp 36 mmHg (35-46) Arterial Blood pO2 at Patient Temp 88 mmHg (75-108) Arterial Blood HCO3 25 mmol/L (21-28) Arterial Blood Base Excess 1 mmol/L (-3-3) FiO2 35%+5peep Glucose (Fingerstick) 165 mg/dL (70-99) 117 mg/dL (70-99) 147 mg/dL (70-99) Test 08/08/19 05:50 08/08/19 06:37 08/08/19 12:23 08/08/19 18:27 White Blood Count 10.4 x10^3/uL (4.0-11.0) Red Blood Count 2.50 x10^6/uL (3.50-5.40) Hemoglobin 7.7 g/dL (12.0-15.5) Hematocrit 23.3 % (36.0-47.0) Mean Corpuscular Volume 93 fL (79-100) Mean Corpuscular Hemoglobin 31 pg (25-35) Mean Corpuscular Hemoglobin Concent 33 g/dL (31-37) Red Cell Distribution Width 18.1 % (11.5-14.5) Platelet Count 545 x10^3/uL (140-400) Neutrophils (%) (Auto) 75 % (31-73) Lymphocytes (%) (Auto) 15 % (24-48) Monocytes (%) (Auto) 10 % (0-9) Eosinophils (%) (Auto) 0 % (0-3) Basophils (%) (Auto) 0 % (0-3) Neutrophils # (Auto) 7.8 x10^3/uL (1.8-7.7) Lymphocytes # (Auto) 1.6 x10^3/uL (1.0-4.8) Monocytes # (Auto) 1.0 x10^3/uL (0.0-1.1) Eosinophils # (Auto) 0.0 x10^3/uL (0.0-0.7) Basophils # (Auto) 0.0 x10^3/uL (0.0-0.2) Sodium Level 141 mmol/L (136-145) Potassium Level 3.8 mmol/L (3.5-5.1) Chloride Level 104 mmol/L (98-107) Carbon Dioxide Level 25 mmol/L (21-32) Anion Gap 12 (6-14) Blood Urea Nitrogen 76 mg/dL (7-20) Creatinine 1.6 mg/dL (0.6-1.0) Estimated GFR (Cockcroft-Gault) 34.3 Glucose Level 133 mg/dL (70-99) Calcium Level 8.8 mg/dL (8.5-10.1) Phosphorus Level 4.0 mg/dL (2.6-4.7) Magnesium Level 1.7 mg/dL (1.8-2.4) Triglycerides Level 144 mg/dL (0-150) Glucose (Fingerstick) 136 mg/dL (70-99) 176 mg/dL (70-99) 145 mg/dL (70-99) Test 08/09/19 00:01 08/09/19 05:45 08/09/19 06:04 Glucose (Fingerstick) 170 mg/dL (70-99) 136 mg/dL (70-99) Sodium Level 142 mmol/L (136-145) Potassium Level 3.7 mmol/L (3.5-5.1) Chloride Level 105 mmol/L (98-107) Carbon Dioxide Level 23 mmol/L (21-32) Anion Gap 14 (6-14) Blood Urea Nitrogen 89 mg/dL (7-20) Creatinine 1.6 mg/dL (0.6-1.0) Estimated GFR (Cockcroft-Gault) 34.3 Glucose Level 141 mg/dL (70-99) Calcium Level 8.9 mg/dL (8.5-10.1) Magnesium Level 2.2 mg/dL (1.8-2.4) Laboratory Tests Test 08/08/19 12:23 08/08/19 18:27 08/09/19 00:01 08/09/19 05:45 Glucose (Fingerstick) 176 mg/dL (70-99) 145 mg/dL (70-99) 170 mg/dL (70-99) Sodium Level 142 mmol/L (136-145) Potassium Level 3.7 mmol/L (3.5-5.1) Chloride Level 105 mmol/L (98-107) Carbon Dioxide Level 23 mmol/L (21-32) Anion Gap 14 (6-14) Blood Urea Nitrogen 89 mg/dL (7-20) Creatinine 1.6 mg/dL (0.6-1.0) Estimated GFR (Cockcroft-Gault) 34.3 Glucose Level 141 mg/dL (70-99) Calcium Level 8.9 mg/dL (8.5-10.1) Magnesium Level 2.2 mg/dL (1.8-2.4) Test 08/09/19 06:04 Glucose (Fingerstick) 136 mg/dL (70-99) Problem List Problems Medical Problems: (1) Acute pancreatitis Status: Acute (2) Cholelithiasis Status: Acute Assessment/Plan will have Dr Servin review tomorrow when he returns MARV WYNNE MD 08/09/19 1211: SURGICAL PROGRESS NOTE Assessment/Plan seen in dialysis awake tries to communicate ID note reviewed as above will d/w LISANDRO Ramires APRN Aug 09, 2019 10:05 MARV WYNNE MD Aug 09, 2019 12:11
--- NOTE | 2019-08-09 10:21 | NUR ---
SS following up with discharge planning. SS reviewed pt chart and discussed with pt RN. Pt remains on the vent, TPN, and IV abx at this time. No new changes. Pt requires LTAC but is self pay pt. HCFS attempting to work with family to obtain financial documents for Medicaid application. SS will continue to follow for discharge planning.
--- NOTE | 2019-08-09 10:59 | PDOC ---
Subjective: Subjective: I asked about pain, she pointed to tracheostomy. Objective: Vital Signs: Vital Signs Date Time Temp Pulse Resp B/P (MAP) Pulse Ox O2 Delivery O2 Flow Rate FiO2 08/09/19 08:00 98 18 118/64 (82) 100 Ventilator 08/09/19 07:00 99.9 99.9 Labs: Laboratory Tests Test 08/08/19 12:23 08/08/19 18:27 08/09/19 00:01 08/09/19 05:45 Glucose (Fingerstick) 176 mg/dL 145 mg/dL 170 mg/dL Sodium Level 142 mmol/L Potassium Level 3.7 mmol/L Chloride Level 105 mmol/L Carbon Dioxide Level 23 mmol/L Anion Gap 14 Blood Urea Nitrogen 89 mg/dL Creatinine 1.6 mg/dL Estimated GFR (Cockcroft-Gault) 34.3 Glucose Level 141 mg/dL Calcium Level 8.9 mg/dL Magnesium Level 2.2 mg/dL Test 08/09/19 06:04 Glucose (Fingerstick) 136 mg/dL PE: GEN: dialyzing in ICU LUNGS: clear/trach/vent HEART: mildly tachycardic ABD: softer? NEURO/PSYCH: awake A/P: Gallstone pancreatitis w/ necrosis, MOSF, fever -- Continue support. Hemodynamically unstable?: No Is patient in severe pain?: No Is NPO status required?: Yes CYNDEE FALCON Aug 09, 2019 10:59
[2019-08-09 11:08] LABS: BASO # 0.1 x10^3/uL (0.0-0.2); BASO % 1 % (0-3); EOS % 0 % (0-3); HEMATOCRIT 25.5 % (36.0-47.0); HEMOGLOBIN 8.2 g/dL (12.0-15.5); LYMPH # 2.1 x10^3/uL (1.0-4.8); LYMPH % 13 % (24-48); MEAN CORPUSCULAR HEMOGLOBIN 31 pg (25-35); MEAN CORPUSCULAR HGB CONC 32 g/dL (31-37); MEAN CORPUSCULAR VOLUME 95 fL (79-100); MONO # 1.2 x10^3/uL (0.0-1.1); MONO % 8 % (0-9); NEUT # 12.8 x10^3/uL (1.8-7.7); NEUT % 79 % (31-73); PLATELET COUNT 521 x10^3/uL (140-400); RED BLOOD COUNT 2.68 x10^6/uL (3.50-5.40); RED CELL DISTRIBUTION WIDTH 18.8 % (11.5-14.5); WHITE BLOOD COUNT 16.3 x10^3/uL (4.0-11.0)
--- NOTE | 2019-08-09 11:22 | PDOC ---
[facility] PROGRESS NOTE Chief Complaint Chief Complaint Respiratory failure requiring mechanical ventilation (on vent since 07/10) Tracheostomy bilateral pleural effusions/pulm edema Sepsis Severe Acute gallstone pancreatitis (not a surgical candidate at this time) with necrosis Acute kidney failure now requiring dialysis Salpingitis Gallstones (Calculus of gallbladder with acute cholecystitis without obstruction) HTN Leukocytosis Hypoxia Uterine fibroid Intractable pain Intractable nausea Covid 19 negative. Acute on chronic anemia EEG: No seizure activity. ESRD on HD Hyperglycemia, persistently in 200s History of Present Illness History of Present Illness 08-09-2019 Patient seen in ICU room 116 she is currently on dialysis Tridimitris to mumble is grabbing at her face with her left hand She is extremely weak cannot communicate well She is swollen Chart reviewed Discussed with RN Very critically ill 08-08-2019 patient seen and examined in the ICU She is on the vent via tracheostomy 50/35% Has IV TPN NG to suction Wearing mitts for patient safety Still seems encephalopathic Chart reviewed Discussed with RN She remains critically ill Ms Diaz is a 48yo F w/ PMHx HTN, prediabetes who presented to the emergency room with complaints of abdominal pain on 07/04/2019. Found with Lipase 94122, AST 401, ALT 249, Bilirubin 1.4. CT abdomen confirms pancreatic inflammation, peripancreatic fluid and inflammatory changes around the pancreas consistent with pancreatitis. Cholelithiasis and 1.4cm uterine fibroid as well as possible left salpingitis. Admitted for further care GI, General surgery, ID, Pulm consulted. 07/04: No urine output. Added dilaudid for pain, PICC placed per IR. Renal US negative.Seen bedside in ICU, given 2L additional NSS and albumin infusion. Still hypotensive, started on levophed. Repeat CT abdomen w/ necrosis. 07/05: O2 saturation 87% on nasal cannula oxygen. Dialysis catheter per nephrology 07/06: She is now on BiPAP appears more ill, now on dialysis 07/07: Seen on BiPAP. Her mother and another family member are present and seemed to be good support for her. Currently on dialysis. Appears critically ill 07/08: Overnight Tmax 101.7 , still on BiPAP FiO2 40%, still on low dose Levophed gtt, TPN initiated. On dialysis 07/24: Tracheostomy 07/30: S/p tracheostomy on vent spontaneous respirations with 5 of pressure support 35% FiO2, rectal tube and a Lind, off pressors 07/31: Off pressors. Seen on dialysis this morning. BUN 80. Tracking with her eyes. Still on vent via trach. 08/01: BUN 68, Cr 1.7. Temp 100.2F axillary. WBC 9.8. Still on vent via trach. Tracking reasonably well. In obvious discomfort. Removed PICC and CVC LIJ and replaced. Tips sent for culture. CT chest/abd/pelvis with bilateral pleural effusion and ascites. 08/02: Renal function stable. Still on vent. More interactive today. Miming wish for food. Plan discussed for thoracentesis/paracentesis with daughters today. They were under impression patient was doing worse due to a miscommunication which has been clarified over the phone. 4.3L removed. 08/03: BUN 88, Cr 1.8. Much more interactive today. Appears more comfortable today. 08/04: Febrile overnight 101.8F. More interactive, still on vent. Asking for ice by miming. 08/05: Afebrile overnight. TMax last 24 hours 100.6F. Hb 7.1. Interactive when awake. Afebrile. Hb 7. Not tolerating vent wean. Very interactive, on low dose precedex. Excellent UOP over the past 72 hours Plan: Cont vent weaning, dialysis Trach shield during day if ok with pulm. Would recommend ABG after 4 hours to r/o CO2 retention, however and still vent overnight Vitals/I&O Vitals/I&O: Vital Signs Date Time Temp Pulse Resp B/P (MAP) Pulse Ox O2 Delivery O2 Flow Rate FiO2 08/09/19 08:00 98 18 118/64 (82) 100 Ventilator 08/09/19 07:00 99.9 99.9 l I & O 08/08/19 08/08/19 08/09/19 14:59 22:59 06:59 Intake Total 100 ml 2434.1 ml 955 ml Output Total 875 ml 910 ml 1070 ml Balance -775 ml 1524.1 ml -115 ml Physical Exam Physical Exam: GENERAL: Currently on dialysis HEENT: Pupils equal, + NGT, oral cavity dry NECK: Trach/vent LUNGS: rhonchi HEART: S1, S2, regular ABDOMEN: Distended, tender, hypoactive BS, : Lind (08/01) EXTREMITIES: Generalized edema, no cyanosis, SCDs bilaterally DERMATOLOGIC: Warm and dry. No generalized rash. CENTRAL NERVOUS SYSTEM: Extremely weak trying to talk but unable to understand HDC & LIJ (08/01) clean General: Alert, Cooperative Heart: Regular rate, Normal S1, Other (increased rate) Lungs: Crackles, Other (dimished in BLL nc at perrl nose clear neck trach site ok no lad no thyromegaly) Abdomen: Other (distended ) Extremities: Other (ANASARCA) Skin: Other (mottling noted to extremities ) Labs Labs: Laboratory Tests Test 08/08/19 12:23 08/08/19 18:27 08/09/19 00:01 08/09/19 05:45 Glucose (Fingerstick) 176 mg/dL (70-99) 145 mg/dL (70-99) 170 mg/dL (70-99) White Blood Count 16.3 x10^3/uL (4.0-11.0) Red Blood Count 2.68 x10^6/uL (3.50-5.40) Hemoglobin 8.2 g/dL (12.0-15.5) Hematocrit 25.5 % (36.0-47.0) Mean Corpuscular Volume 95 fL (79-100) Mean Corpuscular Hemoglobin 31 pg (25-35) Mean Corpuscular Hemoglobin Concent 32 g/dL (31-37) Red Cell Distribution Width 18.8 % (11.5-14.5) Platelet Count 521 x10^3/uL (140-400) Neutrophils (%) (Auto) 79 % (31-73) Lymphocytes (%) (Auto) 13 % (24-48) Monocytes (%) (Auto) 8 % (0-9) Eosinophils (%) (Auto) 0 % (0-3) Basophils (%) (Auto) 1 % (0-3) Neutrophils # (Auto) 12.8 x10^3/uL (1.8-7.7) Lymphocytes # (Auto) 2.1 x10^3/uL (1.0-4.8) Monocytes # (Auto) 1.2 x10^3/uL (0.0-1.1) Eosinophils # (Auto) 0.0 x10^3/uL (0.0-0.7) Basophils # (Auto) 0.1 x10^3/uL (0.0-0.2) Sodium Level 142 mmol/L (136-145) Potassium Level 3.7 mmol/L (3.5-5.1) Chloride Level 105 mmol/L (98-107) Carbon Dioxide Level 23 mmol/L (21-32) Anion Gap 14 (6-14) Blood Urea Nitrogen 89 mg/dL (7-20) Creatinine 1.6 mg/dL (0.6-1.0) Estimated GFR (Cockcroft-Gault) 34.3 Glucose Level 141 mg/dL (70-99) Calcium Level 8.9 mg/dL (8.5-10.1) Magnesium Level 2.2 mg/dL (1.8-2.4) Test 08/09/19 06:04 Glucose (Fingerstick) 136 mg/dL (70-99) Review of Systems Review of Systems: Unable to obtain Assessment and Plan Assessmemt and Plan Problems Medical Problems: (1) Acute pancreatitis Status: Acute (2) Cholelithiasis Status: Acute Respiratory failure requiring intubation Status post tracheostomy Severe Acute gallstone pancreatitis (she is not a surgical candidate as she is too ill) Acute kidney failure now requiring dialysis Salpingo--itis Gallstones (Calculus of gallbladder with acute cholecystitis without obstruction) HTN Leukocytosis Hypoxia Uterine fibroid Hypoxia with respiratory failure Intractable pain Intractable nausea Plan ICU monitoring Tracheostomy care NG suctioning Vent management per pulm. pressure support as tolerated Dialysis per nephro Merrem (07/26) and Zyvox (07/28) and micafungin Follow cultures Trach care Nutritional support When necessary levo fed Neuro following No plans for sx at present as she is to ill still Discharge disposition pending (? Eventual LTAC) She is still critically ill Prognosis very guarded Total time 35 min Comment Review of Relevant I have reviewed the following items kolby (where applicable) has been applied. Medications: Current Medications Medications (Trade) Dose Ordered Sig/Yvon Route PRN Reason Start Time Stop Time Status Last Admin Dose Admin Sodium Chloride 100 meq/Potassium Chloride 40 meq/ Magnesium Sulfate 20 meq/Calcium Gluconate 15 meq/ Multivitamins 10 ml/Chromium/ Copper/Manganese/ Seleni/Zn 0.5 ml/ Insulin Human Regular 35 unit/ Total Parenteral Nutrition/Amino Acids/Dextrose/ Fat Emulsion Intravenous 1,400 ml @ 58.333 mls/ hr TPN CONT IV 08/08/19 22:00 08/09/19 21:59 08/08/19 22:31 Fentanyl Citrate (Fentanyl 2ml Vial) 50 mcg PRN Q2HR PRN IVP PAIN 08/08/19 21:00 08/09/19 02:23 Albumin Human 200 ml @ 200 mls/hr 1X PRN PRN IV Hypotension 08/09/19 08:00 08/09/19 13:59 08/09/19 08:40 Hemodynamically unstable?: No Is patient in severe pain?: No Is NPO status required?: Yes BEBO KIRBY III DO Aug 09, 2019 11:22
[2019-08-09 11:47] LABS: % BANDS 26 % (0-9); % LYMPHS 6 % (24-48); % MONOS 7 % (0-10); % SEGS 61 % (35-66)
[2019-08-09 11:49] LABS: ANISOCYTOSIS SLIGHT; HYPOCHROMIA SLIGHT; MICROCYTOSIS SLIGHT; PLT ESTIMATE INCREASED (ADEQUATE); TOXIC GRANULATION SLIGHT
[2019-08-09] MEDS: PANTOPRAZOLE IV PUSH 40 MG VIAL. IVP SCH (12:35)
[2019-08-09] MEDS: HEPARIN for SUB-Q USE 5,000 UNIT/ML VIAL. SQ SCH ×2 (12:36→21:25)
[2019-08-09] MEDS: MEROPENEM 500 MG in IV NORMAL SALINE 50ML 50 ML IV SCH ×2 (12:36→21:33)
[2019-08-09] MEDS: MICAFUNGIN 100 MG in IV DEXTROSE 5% 100ML 100 ML IV SCH (12:37)
[2019-08-09] MEDS: TPN PER PHARMACY MC PRN (12:44)
--- NOTE | 2019-08-09 12:44 | NUR ---
Pharmacy TPN Dosing Note S: SCOTT AVILA is a 48 year old F Currently receiving Central Continuous TPN started 07/06/19 B:Pertinent PMH: Necrotizing pancreatitis Height: 5 feet, 8 inches Weight: 108.1 kg Current diet: NPO LABS: Sodium: 142 Potassium: 3.7 Chloride: 105 Calcium: 8.9 Corrected Calcium: 9.86 Magnesium: 2.2 CO2: 25 SCr: 1.6 Glucose: 170, 141, 136 Albumin: 2.8 AST: 23 ALT: 11 TPN FORMULA: TPN TYPE: Central Continuous AMINO ACIDS: 125 gm DEXTROSE: 225 gm LIPIDS: 20 gm SODIUM CHLORIDE: 100 mEq POTASSIUM CHLORIDE: 40 mEq MAGNESIUM: 20 mEq CALCIUM: 15 mEq INSULIN: 35 units MULTIPLE VITAMIN: 10 ml TRACE ELEMENTS: 0.5 ml TPN PLAN: -Electrolytes and glucose stable today, no changes in TPN. -Renal panel tomorrow per nephrology. R: Continue TPN @ current rate and with above formula. Will monitor electrolytes, glucose, and tolerance to TPN. SHARON [facility], 08/09/19 [id number]
--- NOTE | 2019-08-09 13:35 | PDOC ---
PROGRESS NOTES Assessment Assessment Respiratory failure. Seizure. Metabolic encephalopathy. Fever 102.7 degree, recurrent fever noted. Metabolic acidosis. Diffuse pulmonary infiltrate. Pleural effusion. Pancreatitis, necrotizing. Gallstone. Leukocytosis. Lymphopenia. Electrolytes imbalances. Hyperglycemia. DM. HTN. HLD. Anemia. Abnormal CXR. Obesity. Covid-19 still suspected. RECOMMENDATIONS/PLAN: Continue life support in CCU at the present time. Keppra if has further seizures. Treat medical diseases. OT/PT. EEG: No seizure activity. OBJECTIVE: 08/09/19: No seizures reported over night. Past Medical History Cardiovascular: HTN, Hyperlipidemia Endocrine: Diabetes Family History Unobtainable. Social HistoryU not obtainable Allergies Coded Allergies: Codeine (Verified Allergy, Intermediate, rash, 07/04/19) ROS Unobtainable. NEUROLOGICAL EXAMINATION: Eyes open from time to time. Not oriented to time, place and person. PERRL. EOMI. CN: no acute focal findings. Muscle tone: Decreased. Muscle strength: 3 UE, 2+ LE. DTR: 1-2. Plantar reflex: Neutral response bilaterally Gait: not able to walk. Sensory exam: no response to stimuli.. Not able to access cerebellar signs. F-T-N test not performed. Patient examined in CCU. Objective Objective Vital Signs Date Time Temp Pulse Resp B/P (MAP) Pulse Ox O2 Delivery O2 Flow Rate FiO2 08/09/19 12:53 Mechanical Ventilator 08/09/19 12:51 100.1 106 18 90/46 (61) 100 100.1 Intake and Output 08/09/19 07:00 Intake Total 3489.1 ml Output Total 3005 ml Balance 484.1 ml IV Total 3489.1 ml Output Urine Total 2805 ml Gastric Drainage Total 200 ml Vitals Signs Vitals VS - Last 72 Hours, by Label Date Time Temp Pulse Resp B/P (MAP) Pulse Ox O2 Delivery O2 Flow Rate FiO2 08/09/19 12:53 Mechanical Ventilator 08/09/19 12:51 100.1 106 18 90/46 (61) 100 Ventilator 100.1 08/09/19 12:30 103 18 146/63 (90) 100 Ventilator 08/09/19 12:30 99 Ventilator 08/09/19 08:00 98 18 118/64 (82) 100 Ventilator 08/09/19 08:00 Mechanical Ventilator 08/09/19 07:42 100 Ventilator 08/09/19 07:00 99.9 116 18 133/71 (91) 100 Ventilator 99.9 08/09/19 06:00 102.2 124 28 158/98 (118) 100 Ventilator 102.2 08/09/19 05:00 97 20 113/62 (79) 100 Ventilator 08/09/19 04:00 Mechanical Ventilator 08/09/19 04:00 116 24 128/85 (99) 100 Ventilator 08/09/19 03:55 100 Ventilator 08/09/19 03:00 100.8 88 20 106/56 (73) 98 Ventilator 100.8 08/09/19 02:50 20 97 Ventilator 08/09/19 02:23 24 100 Ventilator 08/09/19 02:00 112 26 156/85 (108) 100 Ventilator 08/09/19 01:00 99 20 134/84 (101) 100 Ventilator 08/09/19 00:25 100 Ventilator 08/08/19 23:59 99.5 89 20 117/58 (77) 100 Ventilator 99.5 08/08/19 23:59 Mechanical Ventilator 08/08/19 23:00 100 24 152/86 (108) 100 Ventilator 08/08/19 22:00 102.1 106 20 147/82 (103) 100 Ventilator 102.1 08/08/19 21:55 20 100 Ventilator 08/08/19 21:27 24 100 Ventilator 08/08/19 21:00 112 24 148/82 (104) 100 Ventilator 08/08/19 20:46 100 Ventilator 08/08/19 20:00 101.2 115 22 132/78 (96) 100 Ventilator 101.2 08/08/19 20:00 Mechanical Ventilator 08/08/19 19:00 114 24 156/71 (99) 100 Ventilator 08/08/19 18:12 100 Ventilator 08/08/19 18:00 119 27 154/81 (105) 100 Ventilator 08/08/19 17:00 118 26 153/74 (100) 100 Ventilator 08/08/19 16:00 Mechanical Ventilator 08/08/19 16:00 100.5 105 20 156/84 (108) 100 Ventilator 100.5 08/08/19 15:42 100 Ventilator 08/08/19 15:00 95 23 111/61 (78) 100 Ventilator 08/08/19 14:00 99 17 144/81 (102) 100 Ventilator 08/08/19 13:00 116 22 141/70 (93) 100 Ventilator 08/08/19 12:00 101.2 107 29 128/82 (97) 100 Ventilator 101.2 08/08/19 12:00 100 Ventilator 08/08/19 12:00 Mechanical Ventilator 08/08/19 11:00 116 25 142/82 (102) 100 Ventilator 08/08/19 10:00 105 22 166/81 (109) 100 Ventilator 08/08/19 09:00 115 25 149/86 (107) 98 Ventilator 08/08/19 08:03 100 Ventilator 08/08/19 08:00 101.2 113 24 117/76 (90) 100 Ventilator 101.2 08/08/19 08:00 Mechanical Ventilator 08/08/19 07:00 106 20 127/60 (82) 99 Ventilator Laboratory Laboratory Laboratory Tests Test 08/08/19 18:27 08/09/19 00:01 08/09/19 05:45 08/09/19 06:04 Glucose (Fingerstick) 145 mg/dL (70-99) 170 mg/dL (70-99) 136 mg/dL (70-99) White Blood Count 16.3 x10^3/uL (4.0-11.0) Red Blood Count 2.68 x10^6/uL (3.50-5.40) Hemoglobin 8.2 g/dL (12.0-15.5) Hematocrit 25.5 % (36.0-47.0) Mean Corpuscular Volume 95 fL (79-100) Mean Corpuscular Hemoglobin 31 pg (25-35) Mean Corpuscular Hemoglobin Concent 32 g/dL (31-37) Red Cell Distribution Width 18.8 % (11.5-14.5) Platelet Count 521 x10^3/uL (140-400) Neutrophils (%) (Auto) 79 % (31-73) Lymphocytes (%) (Auto) 13 % (24-48) Monocytes (%) (Auto) 8 % (0-9) Eosinophils (%) (Auto) 0 % (0-3) Basophils (%) (Auto) 1 % (0-3) Neutrophils # (Auto) 12.8 x10^3/uL (1.8-7.7) Lymphocytes # (Auto) 2.1 x10^3/uL (1.0-4.8) Monocytes # (Auto) 1.2 x10^3/uL (0.0-1.1) Eosinophils # (Auto) 0.0 x10^3/uL (0.0-0.7) Basophils # (Auto) 0.1 x10^3/uL (0.0-0.2) Segmented Neutrophils % 61 % (35-66) Band Neutrophils % 26 % (0-9) Lymphocytes % 6 % (24-48) Monocytes % 7 % (0-10) Toxic Granulation Slight Platelet Estimate Increased (ADEQUATE) Hypochromasia Slight Anisocytosis Slight Microcytosis Slight Sodium Level 142 mmol/L (136-145) Potassium Level 3.7 mmol/L (3.5-5.1) Chloride Level 105 mmol/L (98-107) Carbon Dioxide Level 23 mmol/L (21-32) Anion Gap 14 (6-14) Blood Urea Nitrogen 89 mg/dL (7-20) Creatinine 1.6 mg/dL (0.6-1.0) Estimated GFR (Cockcroft-Gault) 34.3 Glucose Level 141 mg/dL (70-99) Calcium Level 8.9 mg/dL (8.5-10.1) Magnesium Level 2.2 mg/dL (1.8-2.4) Test 08/09/19 12:48 Glucose (Fingerstick) 157 mg/dL (70-99) Microbiology 08/03/19 Aerobic and Anaerobic Culture - Final, Complete 08/03/19 Anaerobic Culture Result 1 (ALEXANDRA) - Final, Complete 08/03/19 Aerobic Culture - Final, Complete 08/03/19 Aerobic Culture Result 1 (ALEXANDRA) - Final, Complete 08/03/19 Gram Stain - Final, Complete 08/03/19 Gram Stain Result 1 (ALEXANDRA) - Final, Complete 08/03/19 Gram Stain Result 2 (ALEXANDRA) - Final, Complete 08/02/19 Blood Culture - Final, Complete NO GROWTH AFTER 5 DAYS 07/31/19 Urine Culture - Final, Complete 07/31/19 Urine Culture Result 1 (ALEXANDRA) - Final, Complete Medication Medications Current Medications Albumin Human 200 ml @ 200 mls/hr 1X PRN PRN IV Hypotension Last administered on 08/09/19at 08:40; Start 08/09/19 at 08:00; Stop 08/09/19 at 13:59 Amino Acids/ Glycerin/ Electrolytes 1,000 ml @ 75 mls/hr [id number] IV ; Start 08/08/19 at 21:15; Status UNV Daptomycin 430 mg/ Sodium Chloride 50 ml @ 100 mls/hr Q24H IV Last administered on 08/09/19at 12:35; Start 08/09/19 at 09:00; Stop 08/09/19 at 12:49; Status DC Daptomycin 430 mg/ Sodium Chloride 50 ml @ 100 mls/hr Q48H IV ; Start 08/11/19 at 09:00 Enoxaparin Sodium (Lovenox 100mg Syringe) 100 mg Q12HR SQ ; Start 08/09/19 at 21:00; Status UNV Fentanyl Citrate (Fentanyl 2ml Vial) 25 mcg PRN Q2HR PRN IVP PAIN; Start 08/08/19 at 21:00 Fentanyl Citrate (Fentanyl 2ml Vial) 50 mcg PRN Q2HR PRN IVP PAIN Last administered on 08/09/19at 02:23; Start 08/08/19 at 21:00 Info (PHARMACY MONITORING -- do not chart) 1 each PRN DAILY PRN MC SEE COMMENTS; Start 08/09/19 at 08:00; Status UNV Info (PHARMACY MONITORING -- do not chart) 1 each PRN DAILY PRN MC SEE COMMENTS; Start 08/09/19 at 08:00; Status UNV Sodium Chloride 1,000 ml @ 400 mls/hr Q2H30M PRN IV PATENCY; Start 08/09/19 at 07:56; Stop 08/09/19 at 19:55 Sodium Chloride 1,000 ml @ 1,000 mls/hr Q1H PRN IV hypotension; Start 08/09/19 at 07:56; Stop 08/09/19 at 13:55 Sodium Chloride 100 meq/Potassium Chloride 40 meq/ Magnesium Sulfate 20 meq/Calcium Gluconate 15 meq/ Multivitamins 10 ml/Chromium/ Copper/Manganese/ Seleni/Zn 0.5 ml/ Insulin Human Regular 35 unit/ Total Parenteral Nutrition/Amino Acids/Dextrose/ Fat Emulsion Intravenous 1,400 ml @ 58.333 mls/ hr TPN CONT IV Last administered on 08/08/19at 22:31; Start 08/08/19 at 22:00; Stop 08/09/19 at 21:59 Sodium Chloride 100 meq/Potassium Chloride 40 meq/ Magnesium Sulfate 20 meq/Calcium Gluconate 15 meq/ Multivitamins 10 ml/Chromium/ Copper/Manganese/ Seleni/Zn 0.5 ml/ Insulin Human Regular 35 unit/ Total Parenteral Nutrition/Amino Acids/Dextrose/ Fat Emulsion Intravenous 1,400 ml @ 58.333 mls/ hr TPN CONT IV ; Start 08/09/19 at 22:00; Stop 08/10/19 at 21:59 Comment Review of Relevant I have reviewed the following items kolby (where applicable) has been applied. ZANDER ZUÑIGA MD Aug 09, 2019 13:35
[2019-08-09] MEDS ORDERED: TOTAL PARENTERAL NUTRITION IV SCH ×10 (22:00)
[2019-08-09] MEDS ORDERED: [UNRECOGNIZED DRUG - OTHER] IV SCH ×10 (22:00)
[2019-08-09] MEDS ORDERED: DEXTROSE 70% IV SCH ×10 (22:00)
[2019-08-09] MEDS ORDERED: AMINO ACID IV SCH ×10 (22:00)
[2019-08-10] VITALS (31 sets, daily range): BP systolic 97–196; BP diastolic 56–103
[2019-08-10] MEDS: DEXMEDETOMIDINE 400 MCG in IV NORMAL SALINE 100ML 96 ML IV PRN ×8 (02:11→22:57)
[2019-08-10] MEDS: fentaNYL PF VIAL 100 MCG/2 ML VIAL IVP PRN ×4 (03:26→22:51)
[2019-08-10] MEDS: ACETAMINOPHEN 650 MG SUPP.RECT. PR PRN ×2 (03:26→17:01)
[2019-08-10 05:45] LABS: BASO % 0 % (0-3); EOS # 0.1 x10^3/uL (0.0-0.7); EOS % 1 % (0-3); LYMPH # 1.2 x10^3/uL (1.0-4.8); LYMPH % 10 % (24-48); MEAN CORPUSCULAR HEMOGLOBIN 30 pg (25-35); MEAN CORPUSCULAR HGB CONC 32 g/dL (31-37); MEAN CORPUSCULAR VOLUME 93 fL (79-100); MONO # 0.9 x10^3/uL (0.0-1.1); MONO % 7 % (0-9); NEUT # 9.7 x10^3/uL (1.8-7.7); NEUT % 82 % (31-73); PLATELET COUNT 394 x10^3/uL (140-400); RED BLOOD COUNT 2.22 x10^6/uL (3.50-5.40); RED CELL DISTRIBUTION WIDTH 18.8 % (11.5-14.5); WHITE BLOOD COUNT 11.9 x10^3/uL (4.0-11.0)
[2019-08-10 05:54] LABS: HEMATOCRIT 20.6 % (36.0-47.0); HEMOGLOBIN 6.7 g/dL (12.0-15.5)
[2019-08-10 05:55] LABS: ALBUMIN 2.7 g/dL (3.4-5.0); CALCIUM 8.8 mg/dL (8.5-10.1); CREATININE 1.4 mg/dL (0.6-1.0); PHOSPHORUS 3.1 mg/dL (2.6-4.7); POTASSIUM 3.5 mmol/L (3.5-5.1)
[2019-08-10] MEDS: INSULIN LISPRO 300 UNITS/3 ML VIAL. SQ SCH ×3 (06:00→18:00)
[2019-08-10] MEDS: MEROPENEM 500 MG in IV NORMAL SALINE 50ML 50 ML IV SCH ×2 (08:28→21:27)
[2019-08-10] MEDS: PANTOPRAZOLE IV PUSH 40 MG VIAL. IVP SCH (08:28)
[2019-08-10] MEDS: MICAFUNGIN 100 MG in IV DEXTROSE 5% 100ML 100 ML IV SCH (08:29)
--- NOTE | 2019-08-10 08:32 | PDOC ---
Infectious Disease Note Subjective Subjective Not feeling well, abd pain present Remains on vent via trach, TPN cont to be febrile ROS ROS no n/v Vital Sign Vital Signs Vital Signs Date Time Temp Pulse Resp B/P (MAP) Pulse Ox O2 Delivery O2 Flow Rate FiO2 08/10/19 08:08 100 Ventilator 08/10/19 08:00 100.6 94 113/62 (79) 100.6 08/10/19 07:00 35 Physical Exam PHYSICAL EXAM GENERAL: awake on vent HEENT: Pupils equal, + NGT, oral cavity dry NECK: Trach/vent LUNGS: rhonchi HEART: S1, S2, regular ABDOMEN: Distended, tender, hypoactive BS, : Lind (08/01) EXTREMITIES: Generalized edema, no cyanosis, SCDs bilaterally DERMATOLOGIC: Warm and dry. No generalized rash. CENTRAL NERVOUS SYSTEM: Extremely weak trying to talk but unable to understand HDC & LIJ (08/01) clean Labs Lab Laboratory Tests Test 08/09/19 12:48 08/09/19 23:33 08/10/19 05:15 08/10/19 05:30 Glucose (Fingerstick) 157 mg/dL (70-99) 145 mg/dL (70-99) Magnesium Level 2.1 mg/dL (1.8-2.4) White Blood Count 11.9 x10^3/uL (4.0-11.0) Red Blood Count 2.22 x10^6/uL (3.50-5.40) Hemoglobin 6.7 g/dL (12.0-15.5) Hematocrit 20.6 % (36.0-47.0) Mean Corpuscular Volume 93 fL (79-100) Mean Corpuscular Hemoglobin 30 pg (25-35) Mean Corpuscular Hemoglobin Concent 32 g/dL (31-37) Red Cell Distribution Width 18.8 % (11.5-14.5) Platelet Count 394 x10^3/uL (140-400) Neutrophils (%) (Auto) 82 % (31-73) Lymphocytes (%) (Auto) 10 % (24-48) Monocytes (%) (Auto) 7 % (0-9) Eosinophils (%) (Auto) 1 % (0-3) Basophils (%) (Auto) 0 % (0-3) Neutrophils # (Auto) 9.7 x10^3/uL (1.8-7.7) Lymphocytes # (Auto) 1.2 x10^3/uL (1.0-4.8) Monocytes # (Auto) 0.9 x10^3/uL (0.0-1.1) Eosinophils # (Auto) 0.1 x10^3/uL (0.0-0.7) Basophils # (Auto) 0.0 x10^3/uL (0.0-0.2) Sodium Level 141 mmol/L (136-145) Potassium Level 3.5 mmol/L (3.5-5.1) Chloride Level 104 mmol/L (98-107) Carbon Dioxide Level 27 mmol/L (21-32) Anion Gap 10 (6-14) Blood Urea Nitrogen 67 mg/dL (7-20) Creatinine 1.4 mg/dL (0.6-1.0) Estimated GFR (Cockcroft-Gault) 40.0 Glucose Level 143 mg/dL (70-99) Calcium Level 8.8 mg/dL (8.5-10.1) Phosphorus Level 3.1 mg/dL (2.6-4.7) Albumin 2.7 g/dL (3.4-5.0) Test 08/10/19 05:59 Glucose (Fingerstick) 135 mg/dL (70-99) Micro BC neg Abd culture neg, cell count not done Objective Assessment Leukocytosis 07/28 -improved Fever - New left IJ/Lind 08/01. PICC removed 08/01 -? pancreatitis. blood cults 07/28 neg. Urine - neg, Ascites s/p paracentesis 08/02 - 4300 ml. cultures neg to date Severe acute gallstone pancreatitis with necrosis -CT 08/01 necrotizing pancreatitis with fluid and phlegmon at the pancreas Hypotension off levaphed Joseph Pleural effusions JUANA requiring HD - s/p RIJ temporary dialysis catheter replacement, 07/20 Vent dependent respiratory failure -s/p Trach placement -lung opacities, COVID-19 neg Anasarca - worse Anemia - S/p PRBC 07/13 Hypocalcemia Prediabetes HTN Diarrhea, C. diff neg 07/10 Anemia - S/p PRBCs Plan Plan of Care cont merrem (07/26) and ,micafungin, and dapto Gen surgery following Maintain aspiration precautions Anemia deferred to primary CBC in am Critically ill zyvox changed to dapto , to rule out serotonin sy causing fever, I think sec to cont fever, and broad coverage, need to consider pancreatic necrosectomy d/w surgery and GI D/w nursing KIMMY JONES MD Aug 10, 2019 08:32
[2019-08-10] MEDS: HEPARIN for SUB-Q USE 5,000 UNIT/ML VIAL. SQ SCH ×2 (08:43→21:24)
--- NOTE | 2019-08-10 09:28 | PDOC ---
SUBJECTIVE ROS stable OBJECTIVE Vital Signs Vital Signs Date Time Temp Pulse Resp B/P (MAP) Pulse Ox O2 Delivery O2 Flow Rate FiO2 08/10/19 08:08 100 Ventilator 08/10/19 08:00 100.6 94 113/62 (79) 100.6 08/10/19 07:00 35 I & 0 Intake and Output 08/10/19 07:00 Intake Total 2643 ml Output Total 1600 ml Balance 1043 ml IV Total 2643 ml Output Urine Total 1600 ml # Bowel Movements 1 PHYSICAL EXAM Physical Exam GENERAL: awake, alert HEENT: + NGT, NECK: Trach/vent LUNGS: rhonchi HEART: S1, S2, regular ABDOMEN: Distended, tender, hypoactive BS, : Lind (08/01) EXTREMITIES: Generalized edema, no cyanosis, DERMATOLOGIC: No generalized rash. 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 Moderate to large volume ascites with little change. Ascites - post paracentesis on 08/02- 4300 cc of thin, light brown fluid was removed Cholelithiasis with thickening of the gallbladder wall. Acute hypoxic resp failure ,bilateral pleural effusion Has Trach, On Vent Persistent pleural effusions and atelectasis in the lung bases. hypocalcemia - stable HTN- Hypotensive , pressors as indicated COVID-19 neg, 07/13 COMMENT/RELEVANT DATA Meds Current Medications Medications (Trade) Dose Ordered Sig/Yvon Start Time Stop Time Status Last Admin Dose Admin Acetaminophen (Tylenol Supp) 650 mg PRN Q6HRS PRN 07/12/19 10:30 08/10/19 03:26 650 MG Acetaminophen (Tylenol) 650 mg PRN Q6HRS PRN 07/09/19 03:36 08/04/19 19:56 650 MG Albumin Human 200 ml @ 200 mls/hr 1X PRN PRN 08/09/19 08:00 08/09/19 13:59 DC 08/09/19 08:40 200 MLS/HR Albuterol Sulfate (Ventolin Neb Soln) 2.5 mg 1X ONCE 07/05/19 22:30 07/05/19 22:31 DC 07/06/19 00:56 2.5 MG Alteplase, Recombinant (Cathflo For Central Catheter Clearance) 1 mg 1X ONCE 07/19/19 22:00 07/19/19 22:01 DC 07/19/19 22:05 1 MG Amino Acids/ Glycerin/ Electrolytes 1,000 ml @ 75 mls/hr [id number] 08/08/19 21:15 UNV Artificial Tears (Artificial Tears) 1 drop PRN Q1HR PRN 07/11/19 08:15 Atenolol (Tenormin) 100 mg DAILY 07/05/19 09:00 07/04/19 20:08 DC Atropine Sulfate (ATROPINE 0.5mg SYRINGE) 0.5 mg PRN Q5MIN PRN 07/21/19 08:15 Benzocaine (Hurricaine One) 1 spray 1X ONCE 07/08/19 14:30 07/08/19 14:31 DC 07/08/19 16:38 1 SPRAY Bupivacaine HCl/ Epinephrine Bitart (Sensorcain-Epi 0.5%-1:[id number] Mpf) 30 ml STK-MED ONCE 07/25/19 11:00 07/25/19 11:01 DC 07/25/19 11:44 1 ML Calcium Carbonate/ Glycine (Tums) 500 mg PRN AFTMEALHC PRN 07/06/19 17:45 Calcium Chloride 1000 mg/Sodium Chloride 110 ml @ 220 mls/hr 1X ONCE 07/05/19 22:30 07/05/19 22:59 DC 07/05/19 22:11 220 MLS/HR Calcium Chloride 3000 mg/Sodium Chloride 1,030 ml @ 50 mls/hr [id number] 07/07/19 08:00 07/09/19 15:23 DC 07/09/19 02:17 50 MLS/HR Calcium Gluconate (Calcium Gluconate) 2,000 mg 1X ONCE 07/07/19 02:15 07/07/19 02:16 DC 07/07/19 02:19 2,000 MG Calcium Gluconate 1000 mg/Sodium Chloride 110 ml @ 220 mls/hr 1X ONCE 07/06/19 03:30 07/06/19 03:59 DC 07/06/19 03:21 220 MLS/HR Calcium Gluconate 2000 mg/Sodium Chloride 120 ml @ 220 mls/hr 1X ONCE 07/06/19 07:30 07/06/19 08:02 DC 07/06/19 09:05 220 MLS/HR Cefepime HCl (Maxipime) 2 gm Q12HR 07/13/19 09:00 07/27/19 09:58 DC 07/26/19 20:56 2 GM Cellulose (Surgicel Fibrillar 1x2) 1 each STK-MED ONCE 07/25/19 11:00 07/25/19 11:01 DC Cellulose (Surgicel Hemostat 4x8) 1 each STK-MED ONCE 07/25/19 11:55 07/25/19 11:56 DC 07/25/19 11:44 1 EACH Daptomycin 430 mg/ Sodium Chloride 50 ml @ 100 mls/hr Q48H 08/11/19 09:00 Daptomycin 500 mg/ Sodium Chloride 50 ml @ 100 mls/hr Q48H 07/13/19 08:30 07/29/19 10:07 DC 07/29/19 09:57 100 MLS/HR Dexmedetomidine HCl 400 mcg/ Sodium Chloride 100 ml @ 0 mls/hr CONT PRN 07/21/19 08:15 08/10/19 08:21 30.5 MLS/HR Dextrose (Dextrose 50%-Water Syringe) 12.5 gm PRN Q15MIN PRN 07/04/19 09:30 Digoxin (Lanoxin) 125 mcg 1X ONCE 07/07/19 18:00 07/07/19 18:01 DC 07/07/19 17:10 125 MCG Diphenhydramine HCl (Benadryl) 25 mg 1X PRN PRN 08/01/19 09:45 08/02/19 09:44 DC Enoxaparin Sodium (Lovenox 100mg Syringe) 100 mg Q12HR 08/09/19 21:00 UNV Etomidate (Amidate) 8 mg 1X ONCE 07/11/19 08:30 07/11/19 08:31 DC 07/11/19 08:33 8 MG Fentanyl Citrate (Fentanyl 2ml Vial) 25 mcg PRN Q2HR PRN 08/08/19 21:00 Furosemide (Lasix) 40 mg 1X ONCE 08/01/19 14:30 08/01/19 14:31 DC 08/01/19 14:39 40 MG Heparin Sodium (Porcine) (Hep Lock Adult) 500 unit STK-MED ONCE 07/26/19 09:29 07/26/19 09:30 DC Heparin Sodium (Porcine) (Heparin Sodium) 5,000 unit Q12HR 07/22/19 21:00 08/10/19 08:43 5,000 UNIT Hydromorphone HCl (Dilaudid) 1 mg PRN Q3HRS PRN 07/05/19 12:00 07/19/19 00:25 DC 07/11/19 05:13 1 MG Info (CONTRAST GIVEN -- Rx MONITORING) 1 each PRN DAILY PRN 07/18/19 11:45 07/20/19 11:44 DC Info (Icu Electrolyte Protocol) 1 ea CONT PRN PRN 07/17/19 13:15 Info (PHARMACY MONITORING -- do not chart) 1 each PRN DAILY PRN 08/09/19 08:00 UNV Info (Tpn Per Pharmacy) 1 each PRN DAILY PRN 07/06/19 12:30 UNV Insulin Human Lispro (HumaLOG) 0-9 UNITS Q6HRS 07/04/19 09:30 08/09/19 00:06 4 UNITS Insulin Human Regular (HumuLIN R VIAL) 5 unit 1X ONCE 07/05/19 22:30 07/05/19 22:31 DC 07/05/19 22:14 5 UNIT Iohexol (Omnipaque 240 Mg/ml) 30 ml 1X ONCE 07/18/19 11:30 07/18/19 11:33 DC 07/18/19 11:30 30 ML Iohexol (Omnipaque 300 Mg/ml) 60 ml 1X ONCE 07/05/19 17:00 07/05/19 17:01 DC 07/05/19 17:20 60 ML Iohexol (Omnipaque 350 Mg/ml) 90 ml 1X ONCE 07/04/19 03:30 07/04/19 03:31 DC 07/04/19 03:25 90 ML Ketorolac Tromethamine (Toradol 30mg Vial) 30 mg 1X ONCE 07/04/19 03:00 07/04/19 03:01 DC 07/04/19 02:54 30 MG Lidocaine HCl (Buffered Lidocaine 1%) 6 ml 1X ONCE 08/03/19 13:30 08/03/19 13:31 DC 08/03/19 13:45 9 ML Lidocaine HCl (Glydo (Lidocaine) Jelly) 1 ramu 1X ONCE 07/08/19 14:30 07/08/19 14:31 DC 07/08/19 16:38 1 RAMU Lidocaine HCl (Xylocaine-Mpf 1% 2ml Vial) 2 ml PRN 1X PRN 07/25/19 07:00 07/26/19 06:59 DC Linezolid/Dextrose 300 ml @ 300 mls/hr Q12HR 07/29/19 11:00 08/09/19 08:10 DC 08/08/19 20:40 300 MLS/HR Lorazepam (Ativan Inj) 1 mg PRN Q4HRS PRN 07/07/19 09:00 08/05/19 09:19 DC 08/05/19 03:51 1 MG Magnesium Sulfate 50 ml @ 25 mls/hr PRN DAILY PRN 07/24/19 09:15 08/08/19 17:27 25 MLS/HR Meropenem 1 gm/ Sodium Chloride 100 ml @ 200 mls/hr Q8HRS 07/05/19 20:00 07/06/19 08:48 DC 07/06/19 05:45 200 MLS/HR Meropenem 500 mg/ Sodium Chloride 50 ml @ 100 mls/hr Q12H 07/27/19 10:00 08/10/19 08:28 100 MLS/HR Metoprolol Tartrate (Lopressor Vial) 5 mg Q6HRS 07/05/19 10:15 07/16/19 08:48 DC 07/14/19 00:12 5 MG Metronidazole 100 ml @ 100 mls/hr Q8HRS 08/02/19 10:00 08/09/19 08:10 DC 08/09/19 06:04 100 MLS/HR Micafungin Sodium 100 mg/Dextrose 100 ml @ 100 mls/hr Q24H 07/11/19 09:00 08/10/19 08:29 100 MLS/HR Midazolam HCl (Versed) 5 mg 1X ONCE 07/11/19 08:30 07/11/19 08:31 DC Midazolam HCl 100 mg/Sodium Chloride 100 ml @ 7 mls/hr CONT PRN 07/16/19 16:00 07/27/19 15:35 7 MLS/HR Midazolam HCl 50 mg/Sodium Chloride 50 ml @ 0 mls/hr CONT PRN 07/11/19 08:15 07/16/19 15:59 DC 07/14/19 22:39 7 MLS/HR Morphine Sulfate (Morphine Sulfate) 2 mg PRN Q2HR PRN 07/04/19 05:00 07/05/19 14:15 DC 07/05/19 12:26 2 MG Multi-Ingred Cream/Lotion/Oil/ Oint (Artificial Tears Eye Ointment) 1 ramu PRN Q1HR PRN 07/13/19 17:30 08/01/19 08:19 1 RAMU Norepinephrine Bitartrate 8 mg/ Dextrose 258 ml @ 17.299 mls/ hr CONT PRN 07/05/19 15:30 08/05/19 09:19 DC 08/02/19 12:48 20.9 MLS/HR Ondansetron HCl (Zofran) 4 mg PRN Q6HRS PRN 07/25/19 07:00 07/26/19 06:59 DC Pantoprazole Sodium (PROTONIX VIAL for IV PUSH) 40 mg DAILYAC 07/04/19 11:30 08/10/19 08:28 40 MG Piperacillin Sod/ Tazobactam Sod 4.5 gm/Sodium Chloride 100 ml @ 200 mls/hr 1X ONCE 07/04/19 06:00 07/04/19 06:29 DC 07/04/19 05:44 200 MLS/HR Potassium Chloride 15 meq/ Bicarbonate Dialysis Soln w/ out KCl 5,007.5 ml @ 1,000 mls/ hr Q5H1M 07/17/19 20:00 07/21/19 13:08 DC 07/20/19 18:14 1,000 MLS/HR Potassium Chloride 20 meq/ Bicarbonate Dialysis Soln w/ out KCl 5,010 ml @ 1,000 mls/hr Q5H1M 07/13/19 16:00 07/17/19 19:59 DC 07/17/19 14:54 1,000 MLS/HR Potassium Chloride/Water 100 ml @ 100 mls/hr 1X ONCE 08/06/19 14:45 08/06/19 15:44 DC 08/06/19 17:28 100 MLS/HR Potassium Phosphate 20 mmol/ Sodium Chloride 106.6667 ml @ 51.667 m... 1X ONCE 07/13/19 13:00 07/13/19 15:03 DC 07/13/19 12:51 51.667 MLS/HR Prochlorperazine Edisylate (Compazine) 5 mg PACU PRN PRN 07/25/19 07:00 07/26/19 06:59 DC Propofol 20 ml @ As Directed STK-MED ONCE 07/25/19 11:07 07/25/19 11:07 DC Ringer's Solution 1,000 ml @ 30 mls/hr Q24H 07/25/19 07:00 07/25/19 18:59 DC Sevoflurane (Ultane) 60 ml STK-MED ONCE 07/25/19 12:46 07/25/19 12:46 DC Sodium Bicarbonate 50 meq/Sodium Chloride 1,050 ml @ 75 mls/hr Q14H 07/06/19 07:30 07/11/19 10:28 DC 07/10/19 21:10 75 MLS/HR Sodium Chloride (Normal Saline Flush) 20 ml PRN Q5MIN PRN 08/02/19 15:00 Sodium Chloride 90 meq/Calcium Gluconate 10 meq/ Multivitamins 10 ml/Chromium/ Copper/Manganese/ Seleni/Zn 0.5 ml/ Total Parenteral Nutrition/Amino Acids/Dextrose/ Fat Emulsion Intravenous 1,512 ml @ 63 mls/hr TPN CONT 07/06/19 22:00 07/07/19 21:59 DC 07/06/19 22:06 63 MLS/HR Sodium Chloride 90 meq/Calcium Gluconate 10 meq/ Multivitamins 10 ml/Chromium/ Copper/Manganese/ Seleni/Zn 1 ml/ Total Parenteral Nutrition/Amino Acids/Dextrose/ Fat Emulsion Intravenous 55.005 ml @ 2.292 mls/hr TPN CONT 07/06/19 22:00 07/06/19 12:33 DC Sodium Chloride 90 meq/Magnesium Sulfate 10 meq/ Calcium Gluconate 20 meq/ Multivitamins 10 ml/Chromium/ Copper/Manganese/ Seleni/Zn 0.5 ml/ Total Parenteral Nutrition/Amino Acids/Dextrose/ Fat Emulsion Intravenous 1,512 ml @ 63 mls/hr TPN CONT 07/07/19 22:00 07/08/19 21:59 DC 07/07/19 22:25 63 MLS/HR Sodium Chloride 90 meq/Magnesium Sulfate 12 meq/ Calcium Gluconate 15 meq/ Multivitamins 10 ml/Chromium/ Copper/Manganese/ Seleni/Zn 0.5 ml/ Insulin Human Regular 25 unit/ Total Parenteral Nutrition/Amino Acids/Dextrose/ Fat Emulsion Intravenous 1,400 ml @ 58.333 mls/ hr TPN CONT 07/27/19 22:00 07/28/19 21:59 DC 07/27/19 21:41 58.333 MLS/HR Sodium Chloride 90 meq/Potassium Chloride 15 meq/ Magnesium Sulfate 12 meq/Calcium Gluconate 15 meq/ Multivitamins 10 ml/Chromium/ Copper/Manganese/ Seleni/Zn 0.5 ml/ Insulin Human Regular 25 unit/ Total Parenteral Nutrition/Amino Acids/Dextrose/ Fat Emulsion Intravenous 1,400 ml @ 58.333 mls/ hr TPN CONT 07/26/19 22:00 07/27/19 21:59 DC 07/26/19 22:13 58.333 MLS/HR Sodium Chloride 90 meq/Potassium Chloride 15 meq/ Potassium Phosphate 10 mmol/ Magnesium Sulfate 8 meq/Calcium Gluconate 15 meq/ Multivitamins 10 ml/Chromium/ Copper/Manganese/ Seleni/Zn 0.5 ml/ Insulin Human Regular 25 unit/ Total Parenteral Nutrition/Amino Acids/Dextrose/ Fat Emulsion Intravenous 1,400 ml @ 58.333 mls/ hr TPN CONT 07/24/19 22:00 07/25/19 21:59 DC 07/24/19 21:20 58.333 MLS/HR Sodium Chloride 90 meq/Potassium Chloride 15 meq/ Potassium Phosphate 10 mmol/ Magnesium Sulfate 10 meq/Calcium Gluconate 20 meq/ Multivitamins 10 ml/Chromium/ Copper/Manganese/ Seleni/Zn 0.5 ml/ Total Parenteral Nutrition/Amino Acids/Dextrose/ Fat Emulsion Intravenous 1,400 ml @ 58.333 mls/ hr TPN CONT 07/11/19 22:00 07/12/19 21:59 DC 07/11/19 21:42 58.333 MLS/HR Sodium Chloride 90 meq/Potassium Chloride 15 meq/ Potassium Phosphate 10 mmol/ Magnesium Sulfate 12 meq/Calcium Gluconate 15 meq/ Multivitamins 10 ml/Chromium/ Copper/Manganese/ Seleni/Zn 0.5 ml/ Insulin Human Regular 25 unit/ Total Parenteral Nutrition/Amino Acids/Dextrose/ Fat Emulsion Intravenous 1,400 ml @ 58.333 mls/ hr TPN CONT 07/25/19 22:00 07/26/19 21:59 DC 07/25/19 22:24 58.333 MLS/HR Sodium Chloride 90 meq/Potassium Chloride 15 meq/ Potassium Phosphate 15 mmol/ Magnesium Sulfate 10 meq/Calcium Gluconate 15 meq/ Multivitamins 10 ml/Chromium/ Copper/Manganese/ Seleni/Zn 0.5 ml/ Total Parenteral Nutrition/Amino Acids/Dextrose/ Fat Emulsion Intravenous 1,400 ml @ 58.333 mls/ hr TPN CONT 07/12/19 22:00 07/13/19 21:59 DC 07/12/19 22:17 58.333 MLS/HR Sodium Chloride 90 meq/Potassium Chloride 15 meq/ Potassium Phosphate 15 mmol/ Magnesium Sulfate 10 meq/Calcium Gluconate 20 meq/ Multivitamins 10 ml/Chromium/ Copper/Manganese/ Seleni/Zn 0.5 ml/ Total Parenteral Nutrition/Amino Acids/Dextrose/ Fat Emulsion Intravenous 1,200 ml @ 50 mls/hr TPN CONT 07/10/19 22:00 07/10/19 14:17 DC Sodium Chloride 90 meq/Potassium Chloride 15 meq/ Potassium Phosphate 18 mmol/ Magnesium Sulfate 8 meq/Calcium Gluconate 15 meq/ Multivitamins 10 ml/Chromium/ Copper/Manganese/ Seleni/Zn 0.5 ml/ Insulin Human Regular 10 unit/ Total Parenteral Nutrition/Amino Acids/Dextrose/ Fat Emulsion Intravenous 1,400 ml @ 58.333 mls/ hr TPN CONT 07/15/19 22:00 07/16/19 21:59 DC 07/15/19 21:43 58.333 MLS/HR Sodium Chloride 90 meq/Potassium Chloride 15 meq/ Potassium Phosphate 18 mmol/ Magnesium Sulfate 8 meq/Calcium Gluconate 15 meq/ Multivitamins 10 ml/Chromium/ Copper/Manganese/ Seleni/Zn 0.5 ml/ Insulin Human Regular 15 unit/ Total Parenteral Nutrition/Amino Acids/Dextrose/ Fat Emulsion Intravenous 1,400 ml @ 58.333 mls/ hr TPN CONT 07/18/19 22:00 07/19/19 21:59 DC 07/18/19 21:47 58.333 MLS/HR Sodium Chloride 90 meq/Potassium Chloride 15 meq/ Potassium Phosphate 18 mmol/ Magnesium Sulfate 8 meq/Calcium Gluconate 15 meq/ Multivitamins 10 ml/Chromium/ Copper/Manganese/ Seleni/Zn 0.5 ml/ Insulin Human Regular 20 unit/ Total Parenteral Nutrition/Amino Acids/Dextrose/ Fat Emulsion Intravenous 1,400 ml @ 58.333 mls/ hr TPN CONT 07/21/19 22:00 07/22/19 21:59 DC 07/21/19 22:45 58.333 MLS/HR Sodium Chloride 90 meq/Potassium Chloride 15 meq/ Potassium Phosphate 18 mmol/ Magnesium Sulfate 8 meq/Calcium Gluconate 15 meq/ Multivitamins 10 ml/Chromium/ Copper/Manganese/ Seleni/Zn 0.5 ml/ Total Parenteral Nutrition/Amino Acids/Dextrose/ Fat Emulsion Intravenous 1,400 ml @ 58.333 mls/ hr TPN CONT 07/14/19 22:00 07/15/19 21:59 DC 07/14/19 22:00 58.333 MLS/HR Sodium Chloride 90 meq/Potassium Phosphate 15 mmol/ Magnesium Sulfate 12 meq/Calcium Gluconate 15 meq/ Multivitamins 10 ml/Chromium/ Copper/Manganese/ Seleni/Zn 0.5 ml/ Insulin Human Regular 30 unit/ Total Parenteral Nutrition/Amino Acids/Dextrose/ Fat Emulsion Intravenous 1,400 ml @ 58.333 mls/ hr TPN CONT 07/29/19 22:00 07/30/19 21:59 DC 07/29/19 21:49 58.333 MLS/HR Sodium Chloride 90 meq/Potassium Phosphate 15 mmol/ Magnesium Sulfate 12 meq/Calcium Gluconate 15 meq/ Multivitamins 10 ml/Chromium/ Copper/Manganese/ Seleni/Zn 0.5 ml/ Insulin Human Regular 40 unit/ Total Parenteral Nutrition/Amino Acids/Dextrose/ Fat Emulsion Intravenous 1,400 ml @ 58.333 mls/ hr TPN CONT 07/30/19 22:00 07/31/19 21:59 DC 07/30/19 21:21 58.333 MLS/HR Sodium Chloride 90 meq/Potassium Phosphate 19 mmol/ Magnesium Sulfate 12 meq/Calcium Gluconate 15 meq/ Multivitamins 10 ml/Chromium/ Copper/Manganese/ Seleni/Zn 0.5 ml/ Insulin Human Regular 40 unit/ Total Parenteral Nutrition/Amino Acids/Dextrose/ Fat Emulsion Intravenous 1,400 ml @ 58.333 mls/ hr TPN CONT 07/31/19 22:00 08/01/19 21:59 DC 07/31/19 21:54 58.333 MLS/HR Sodium Chloride 90 meq/Potassium Phosphate 5 mmol/ Magnesium Sulfate 12 meq/Calcium Gluconate 15 meq/ Multivitamins 10 ml/Chromium/ Copper/Manganese/ Seleni/Zn 0.5 ml/ Insulin Human Regular 30 unit/ Total Parenteral Nutrition/Amino Acids/Dextrose/ Fat Emulsion Intravenous 1,400 ml @ 58.333 mls/ hr TPN CONT 07/28/19 22:00 07/29/19 21:59 DC 07/28/19 22:08 58.333 MLS/HR Sodium Chloride 100 meq/Potassium Chloride 40 meq/ Magnesium Sulfate 15 meq/Calcium Gluconate 15 meq/ Multivitamins 10 ml/Chromium/ Copper/Manganese/ Seleni/Zn 0.5 ml/ Insulin Human Regular 35 unit/ Total Parenteral Nutrition/Amino Acids/Dextrose/ Fat Emulsion Intravenous 1,400 ml @ 58.333 mls/ hr TPN CONT 08/07/19 22:00 08/08/19 21:59 DC 08/07/19 22:46 58.333 MLS/HR Sodium Chloride 100 meq/Potassium Chloride 40 meq/ Magnesium Sulfate 20 meq/Calcium Gluconate 15 meq/ Multivitamins 10 ml/Chromium/ Copper/Manganese/ Seleni/Zn 0.5 ml/ Insulin Human Regular 35 unit/ Total Parenteral Nutrition/Amino Acids/Dextrose/ Fat Emulsion Intravenous 1,400 ml @ 58.333 mls/ hr TPN CONT 08/09/19 22:00 08/10/19 21:59 08/09/19 21:26 58.333 MLS/HR Sodium Chloride 100 meq/Potassium Phosphate 10 mmol/ Magnesium Sulfate 12 meq/Calcium Gluconate 15 meq/ Multivitamins 10 ml/Chromium/ Copper/Manganese/ Seleni/Zn 0.5 ml/ Insulin Human Regular 35 unit/ Potassium Chloride 20 meq/ Total Parenteral Nutrition/Amino Acids/Dextrose/ Fat Emulsion Intravenous 1,400 ml @ 58.333 mls/ hr TPN CONT 08/04/19 22:00 08/05/19 21:59 DC 08/04/19 22:10 58.333 MLS/HR Sodium Chloride 100 meq/Potassium Phosphate 19 mmol/ Magnesium Sulfate 12 meq/Calcium Gluconate 15 meq/ Multivitamins 10 ml/Chromium/ Copper/Manganese/ Seleni/Zn 0.5 ml/ Insulin Human Regular 40 unit/ Potassium Chloride 20 meq/ Total Parenteral Nutrition/Amino Acids/Dextrose/ Fat Emulsion Intravenous 1,400 ml @ 58.333 mls/ hr TPN CONT 08/03/19 22:00 08/04/19 21:59 DC 08/03/19 21:20 58.333 MLS/HR Sodium Chloride 100 meq/Potassium Phosphate 5 mmol/ Magnesium Sulfate 12 meq/Calcium Gluconate 15 meq/ Multivitamins 10 ml/Chromium/ Copper/Manganese/ Seleni/Zn 0.5 ml/ Insulin Human Regular 35 unit/ Potassium Chloride 20 meq/ Total Parenteral Nutrition/Amino Acids/Dextrose/ Fat Emulsion Intravenous 1,400 ml @ 58.333 mls/ hr TPN CONT 08/05/19 22:00 08/06/19 21:59 DC 08/05/19 22:59 58.333 MLS/HR Succinylcholine Chloride (Anectine) 120 mg 1X ONCE 07/11/19 08:30 07/11/19 08:31 DC 07/11/19 08:34 120 MG Lab Laboratory Tests Test 08/09/19 12:48 08/09/19 23:33 08/10/19 05:15 08/10/19 05:30 Glucose (Fingerstick) 157 mg/dL (70-99) 145 mg/dL (70-99) Magnesium Level 2.1 mg/dL (1.8-2.4) White Blood Count 11.9 x10^3/uL (4.0-11.0) Red Blood Count 2.22 x10^6/uL (3.50-5.40) Hemoglobin 6.7 g/dL (12.0-15.5) Hematocrit 20.6 % (36.0-47.0) Mean Corpuscular Volume 93 fL (79-100) Mean Corpuscular Hemoglobin 30 pg (25-35) Mean Corpuscular Hemoglobin Concent 32 g/dL (31-37) Red Cell Distribution Width 18.8 % (11.5-14.5) Platelet Count 394 x10^3/uL (140-400) Neutrophils (%) (Auto) 82 % (31-73) Lymphocytes (%) (Auto) 10 % (24-48) Monocytes (%) (Auto) 7 % (0-9) Eosinophils (%) (Auto) 1 % (0-3) Basophils (%) (Auto) 0 % (0-3) Neutrophils # (Auto) 9.7 x10^3/uL (1.8-7.7) Lymphocytes # (Auto) 1.2 x10^3/uL (1.0-4.8) Monocytes # (Auto) 0.9 x10^3/uL (0.0-1.1) Eosinophils # (Auto) 0.1 x10^3/uL (0.0-0.7) Basophils # (Auto) 0.0 x10^3/uL (0.0-0.2) Sodium Level 141 mmol/L (136-145) Potassium Level 3.5 mmol/L (3.5-5.1) Chloride Level 104 mmol/L (98-107) Carbon Dioxide Level 27 mmol/L (21-32) Anion Gap 10 (6-14) Blood Urea Nitrogen 67 mg/dL (7-20) Creatinine 1.4 mg/dL (0.6-1.0) Estimated GFR (Cockcroft-Gault) 40.0 Glucose Level 143 mg/dL (70-99) Calcium Level 8.8 mg/dL (8.5-10.1) Phosphorus Level 3.1 mg/dL (2.6-4.7) Albumin 2.7 g/dL (3.4-5.0) Test 08/10/19 05:59 Glucose (Fingerstick) 135 mg/dL (70-99) Results All relevant outside records, renal labs, imaging studies, telemetry/EKG's were reviewed. VERENA KENT MD Aug 10, 2019 09:28
[2019-08-10] MEDS: ONDANSETRON PF 4 MG/2 ML VIAL. IV PRN (09:40)
--- NOTE | 2019-08-10 09:59 | PDOC ---
PULMONARY PROGRESS NOTES Subjective Patient intubated on 07/10 , s/p trach 07/24, Patient responding to verbal stimuli Vitals Vital Signs Date Time Temp Pulse Resp B/P (MAP) Pulse Ox O2 Delivery O2 Flow Rate FiO2 08/10/19 09:45 100.6 102 23 166/77 100.6 08/10/19 09:00 100 Ventilator Comments ros unable to obtain on vent Lungs: Crackles, Other (dimished in BLL nc at perrl nose clear neck trach site ok no lad no thyromegaly) Cardiovascular: S1, S2 Abdomen: Soft, Non-tender, Other (distended) Extremities: Other (+3 generalized edema ) Skin: Warm, Dry Labs Laboratory Tests Test 08/08/19 12:23 08/08/19 18:27 08/09/19 00:01 08/09/19 05:45 Glucose (Fingerstick) 176 mg/dL (70-99) 145 mg/dL (70-99) 170 mg/dL (70-99) White Blood Count 16.3 x10^3/uL (4.0-11.0) Red Blood Count 2.68 x10^6/uL (3.50-5.40) Hemoglobin 8.2 g/dL (12.0-15.5) Hematocrit 25.5 % (36.0-47.0) Mean Corpuscular Volume 95 fL (79-100) Mean Corpuscular Hemoglobin 31 pg (25-35) Mean Corpuscular Hemoglobin Concent 32 g/dL (31-37) Red Cell Distribution Width 18.8 % (11.5-14.5) Platelet Count 521 x10^3/uL (140-400) Neutrophils (%) (Auto) 79 % (31-73) Lymphocytes (%) (Auto) 13 % (24-48) Monocytes (%) (Auto) 8 % (0-9) Eosinophils (%) (Auto) 0 % (0-3) Basophils (%) (Auto) 1 % (0-3) Neutrophils # (Auto) 12.8 x10^3/uL (1.8-7.7) Lymphocytes # (Auto) 2.1 x10^3/uL (1.0-4.8) Monocytes # (Auto) 1.2 x10^3/uL (0.0-1.1) Eosinophils # (Auto) 0.0 x10^3/uL (0.0-0.7) Basophils # (Auto) 0.1 x10^3/uL (0.0-0.2) Segmented Neutrophils % 61 % (35-66) Band Neutrophils % 26 % (0-9) Lymphocytes % 6 % (24-48) Monocytes % 7 % (0-10) Toxic Granulation Slight Platelet Estimate Increased (ADEQUATE) Hypochromasia Slight Anisocytosis Slight Microcytosis Slight Sodium Level 142 mmol/L (136-145) Potassium Level 3.7 mmol/L (3.5-5.1) Chloride Level 105 mmol/L (98-107) Carbon Dioxide Level 23 mmol/L (21-32) Anion Gap 14 (6-14) Blood Urea Nitrogen 89 mg/dL (7-20) Creatinine 1.6 mg/dL (0.6-1.0) Estimated GFR (Cockcroft-Gault) 34.3 Glucose Level 141 mg/dL (70-99) Calcium Level 8.9 mg/dL (8.5-10.1) Magnesium Level 2.2 mg/dL (1.8-2.4) Test 08/09/19 06:04 08/09/19 12:48 08/09/19 23:33 08/10/19 05:15 Glucose (Fingerstick) 136 mg/dL (70-99) 157 mg/dL (70-99) 145 mg/dL (70-99) Magnesium Level 2.1 mg/dL (1.8-2.4) Test 08/10/19 05:30 08/10/19 05:59 White Blood Count 11.9 x10^3/uL (4.0-11.0) Red Blood Count 2.22 x10^6/uL (3.50-5.40) Hemoglobin 6.7 g/dL (12.0-15.5) Hematocrit 20.6 % (36.0-47.0) Mean Corpuscular Volume 93 fL (79-100) Mean Corpuscular Hemoglobin 30 pg (25-35) Mean Corpuscular Hemoglobin Concent 32 g/dL (31-37) Red Cell Distribution Width 18.8 % (11.5-14.5) Platelet Count 394 x10^3/uL (140-400) Neutrophils (%) (Auto) 82 % (31-73) Lymphocytes (%) (Auto) 10 % (24-48) Monocytes (%) (Auto) 7 % (0-9) Eosinophils (%) (Auto) 1 % (0-3) Basophils (%) (Auto) 0 % (0-3) Neutrophils # (Auto) 9.7 x10^3/uL (1.8-7.7) Lymphocytes # (Auto) 1.2 x10^3/uL (1.0-4.8) Monocytes # (Auto) 0.9 x10^3/uL (0.0-1.1) Eosinophils # (Auto) 0.1 x10^3/uL (0.0-0.7) Basophils # (Auto) 0.0 x10^3/uL (0.0-0.2) Sodium Level 141 mmol/L (136-145) Potassium Level 3.5 mmol/L (3.5-5.1) Chloride Level 104 mmol/L (98-107) Carbon Dioxide Level 27 mmol/L (21-32) Anion Gap 10 (6-14) Blood Urea Nitrogen 67 mg/dL (7-20) Creatinine 1.4 mg/dL (0.6-1.0) Estimated GFR (Cockcroft-Gault) 40.0 Glucose Level 143 mg/dL (70-99) Calcium Level 8.8 mg/dL (8.5-10.1) Phosphorus Level 3.1 mg/dL (2.6-4.7) Albumin 2.7 g/dL (3.4-5.0) Glucose (Fingerstick) 135 mg/dL (70-99) Laboratory Tests Test 08/09/19 12:48 08/09/19 23:33 08/10/19 05:15 08/10/19 05:30 Glucose (Fingerstick) 157 mg/dL (70-99) 145 mg/dL (70-99) Magnesium Level 2.1 mg/dL (1.8-2.4) White Blood Count 11.9 x10^3/uL (4.0-11.0) Red Blood Count 2.22 x10^6/uL (3.50-5.40) Hemoglobin 6.7 g/dL (12.0-15.5) Hematocrit 20.6 % (36.0-47.0) Mean Corpuscular Volume 93 fL (79-100) Mean Corpuscular Hemoglobin 30 pg (25-35) Mean Corpuscular Hemoglobin Concent 32 g/dL (31-37) Red Cell Distribution Width 18.8 % (11.5-14.5) Platelet Count 394 x10^3/uL (140-400) Neutrophils (%) (Auto) 82 % (31-73) Lymphocytes (%) (Auto) 10 % (24-48) Monocytes (%) (Auto) 7 % (0-9) Eosinophils (%) (Auto) 1 % (0-3) Basophils (%) (Auto) 0 % (0-3) Neutrophils # (Auto) 9.7 x10^3/uL (1.8-7.7) Lymphocytes # (Auto) 1.2 x10^3/uL (1.0-4.8) Monocytes # (Auto) 0.9 x10^3/uL (0.0-1.1) Eosinophils # (Auto) 0.1 x10^3/uL (0.0-0.7) Basophils # (Auto) 0.0 x10^3/uL (0.0-0.2) Sodium Level 141 mmol/L (136-145) Potassium Level 3.5 mmol/L (3.5-5.1) Chloride Level 104 mmol/L (98-107) Carbon Dioxide Level 27 mmol/L (21-32) Anion Gap 10 (6-14) Blood Urea Nitrogen 67 mg/dL (7-20) Creatinine 1.4 mg/dL (0.6-1.0) Estimated GFR (Cockcroft-Gault) 40.0 Glucose Level 143 mg/dL (70-99) Calcium Level 8.8 mg/dL (8.5-10.1) Phosphorus Level 3.1 mg/dL (2.6-4.7) Albumin 2.7 g/dL (3.4-5.0) Test 08/10/19 05:59 Glucose (Fingerstick) 135 mg/dL (70-99) Medications Active Scripts Medications Dose Route/Sig Max Daily Dose Days Date Category Bisoprolol Fumarate 5 Mg Tablet 10 Mg PO DAILY 07/04/19 Reported Impression . IMPRESSION: 1. Acute hypoxemic respiratory failure secondary to ARDS status post trach, 2. Gallstone pancreatitis 3. Severe metabolic acidosis.stable 4. Acute kidney injury-stable, ON HD-- continue to improve 5. Acute gallstone pancreatitis. 6. Hypoalbuminemia. 7. Moderate persistent effusions 8. Fever-persist. Per ID, per surgery 9. Chronic anemia 10. Covid 19 testing negative 11. Moderate to large ascites-S/P paracentisis S/P paracentisis with 4 liters removed on 08/03/19 Plan . Patient still febrile, will await surgery input Not ready for weaning trials. hep sq and protonix for prophylaxis Follow surgery recs Follow ID rec, abx per id Follow nephrology recs Nutritional support per surgery continue TPN for nutrition DVT/GI PPX d/w RN/RT HARMEET BEE MD Aug 10, 2019 09:59
--- NOTE | 2019-08-10 10:25 | PDOC ---
Objective: Objective: D/w nurse - no significant change. D/w ID, wondering about surgery. Tmax 102.5. Vital Signs: Vital Signs Date Time Temp Pulse Resp B/P (MAP) Pulse Ox O2 Delivery O2 Flow Rate FiO2 08/10/19 10:15 100.2 108 35 152/88 100.2 08/10/19 10:00 100 Ventilator Labs: Laboratory Tests Test 08/09/19 12:48 08/09/19 23:33 08/10/19 05:15 08/10/19 05:30 Glucose (Fingerstick) 157 mg/dL 145 mg/dL Magnesium Level 2.1 mg/dL White Blood Count 11.9 x10^3/uL Red Blood Count 2.22 x10^6/uL Hemoglobin 6.7 g/dL Hematocrit 20.6 % Mean Corpuscular Volume 93 fL Mean Corpuscular Hemoglobin 30 pg Mean Corpuscular Hemoglobin Concent 32 g/dL Red Cell Distribution Width 18.8 % Platelet Count 394 x10^3/uL Neutrophils (%) (Auto) 82 % Lymphocytes (%) (Auto) 10 % Monocytes (%) (Auto) 7 % Eosinophils (%) (Auto) 1 % Basophils (%) (Auto) 0 % Neutrophils # (Auto) 9.7 x10^3/uL Lymphocytes # (Auto) 1.2 x10^3/uL Monocytes # (Auto) 0.9 x10^3/uL Eosinophils # (Auto) 0.1 x10^3/uL Basophils # (Auto) 0.0 x10^3/uL Sodium Level 141 mmol/L Potassium Level 3.5 mmol/L Chloride Level 104 mmol/L Carbon Dioxide Level 27 mmol/L Anion Gap 10 Blood Urea Nitrogen 67 mg/dL Creatinine 1.4 mg/dL Estimated GFR (Cockcroft-Gault) 40.0 Glucose Level 143 mg/dL Calcium Level 8.8 mg/dL Phosphorus Level 3.1 mg/dL Albumin 2.7 g/dL Test 08/10/19 05:59 Glucose (Fingerstick) 135 mg/dL PE: GEN: ill LUNGS: trach/vent, clear HEART: RRR ABD: quiet, distended, NG bilious NEURO/PSYCH: opens eyes, tries to wave A/P: Gallstone pancreatitis w/ necrosis, MOSF, fever -- Will review w/ Dr. Weber. Hemodynamically unstable?: No Is patient in severe pain?: No Is NPO status required?: Yes CYNDEE FALCON Aug 10, 2019 10:25
[2019-08-10] MEDS: TPN PER PHARMACY MC PRN (11:51)
--- NOTE | 2019-08-10 11:51 | NUR ---
Pharmacy TPN Dosing Note S: SCOTT AVILA is a 48 year old F Currently receiving Central Continuous TPN started 07/06/19 B:Pertinent PMH: Necrotizing pancreatitis Height: 5 feet, 8 inches Weight: 109.4 kg Current diet: NPO LABS: Sodium: 141 Potassium: 3.5 Chloride: 104 Calcium: 8.8 Corrected Calcium: 9.84 Magnesium: 2.1 CO2: 27 SCr: 1.4 Glucose: 143, 135 Albumin: 2.7 AST: 23 ALT: 11 TPN FORMULA: TPN TYPE: Central Continuous AMINO ACIDS: 125 gm DEXTROSE: 225 gm LIPIDS: 20 gm SODIUM CHLORIDE: 100 mEq POTASSIUM CHLORIDE: 40 mEq MAGNESIUM: 20 mEq CALCIUM: 15 mEq INSULIN: 35 units MULTIPLE VITAMIN: 10 ml TRACE ELEMENTS: 0.5 ml TPN PLAN: -Electrolytes and glucose stable today, no changes in TPN. -BMP, phos, triglyceride tomorrow. R: Continue TPN @ current rate and above formula. Will monitor electrolytes, glucose, and tolerance to TPN. SHARON CHRISTIANSON [facility], 08/10/19 [id number]
--- NOTE | 2019-08-10 12:22 | PDOC ---
[employer] PROGRESS NOTE Chief Complaint Chief Complaint Respiratory failure requiring mechanical ventilation (on vent since 07/10) Tracheostomy bilateral pleural effusions/pulm edema Sepsis Severe Acute gallstone pancreatitis (not a surgical candidate at this time) with necrosis Acute kidney failure now requiring dialysis Salpingitis Gallstones (Calculus of gallbladder with acute cholecystitis without obstruction) HTN Leukocytosis Hypoxia Uterine fibroid Intractable pain Intractable nausea Covid 19 negative. Acute on chronic anemia EEG: No seizure activity. ESRD on HD Hyperglycemia, persistently in 200s History of Present Illness History of Present Illness 08-10-2019 Patient seen and examined in the ICU She has a tracheostomy AC/05/08 50/30% Chart reviewed Discussed with RN She remains extremely critically ill 08-09-2019 Patient seen in ICU room 116 she is currently on dialysis Tries to mumble is grabbing at her face with her left hand She is extremely weak cannot communicate well She is swollen Chart reviewed Discussed with RN Very critically ill 08-08-2019 patient seen and examined in the ICU She is on the vent via tracheostomy 50/35% Has IV TPN NG to suction Wearing mitts for patient safety Still seems encephalopathic Chart reviewed Discussed with RN She remains critically ill Ms Diaz is a 48yo F w/ PMHx HTN, prediabetes who presented to the emergency room with complaints of abdominal pain on 07/04/2019. Found with Lipase 98836, AST 401, ALT 249, Bilirubin 1.4. CT abdomen confirms pancreatic inflammation, peripancreatic fluid and inflam matory changes around the pancreas consistent with pancreatitis. Cholelithiasis and 1.4cm uterine fibroid as well as possible left salpingitis. Admitted for further care GI, General surgery, ID, Pulm consulted. 07/04: No urine output. Added dilaudid for pain, PICC placed per IR. Renal US negative.Seen bedside in ICU, given 2L additional NSS and albumin infusion. Still hypotensive, started on levophed. Repeat CT abdomen w/ necrosis. 07/05: O2 saturation 87% on nasal cannula oxygen. Dialysis catheter per neph rology 07/06: She is now on BiPAP appears more ill, now on dialysis 07/07: Seen on BiPAP. Her mother and another family member are present and seemed to be good support for her. Currently on dialysis. Appears critically ill 07/08: Overnight Tmax 101.7 , still on BiPAP FiO2 40%, still on low dose Levophed gtt, TPN initiated. On dialysis 07/24: Tracheostomy 07/30: S/p tracheostomy on vent spontaneous respirations with 5 of pressure support 35% FiO2, rectal tube and a Lind, off pressors 07/31: Off pressors. Seen on dialysis this morning. BUN 80. Tracking with her eyes. Still on vent via trach. 08/01: BUN 68, Cr 1.7. Temp 100.2F axillary. WBC 9.8. Still on vent via trach. Tracking reasonably well. In obvious discomfort. Removed PICC and CVC LIJ and replaced. Tips sent for culture. CT chest/abd/pelvis with bilateral pleural effusion and ascites. 08/02: Renal function stable. Still on vent. More interactive today. Miming wish for food. Plan discussed for thoracentesis/paracentesis with daughters today. They were under impression patient was doing worse due to a miscommunication which has been clarified over the phone. 4.3L removed. 08/03: BUN 88, Cr 1.8. Much more interactive today. Appears more comfortable today. 08/04: Febrile overnight 101.8F. More interactive, still on vent. Asking for ice by miming. 08/05: Afebrile overnight. TMax last 24 hours 100.6F. Hb 7.1. Interactive when awake. Afebrile. Hb 7. Not tolerating vent wean. Very interactive, on low dose precedex. Excellent UOP over the past 72 hours Plan: Cont vent weaning, dialysis Trach shield during day if ok with pulm. Would recommend ABG after 4 hours to r/o CO2 retention, however and still vent overnight Vitals/I&O Vitals/I&O: Vital Signs Date Time Temp Pulse Resp B/P (MAP) Pulse Ox O2 Delivery O2 Flow Rate FiO2 08/10/19 12:00 100.0 86 24 127/81 100.0 08/10/19 12:00 100 Ventilator I & O 08/09/19 08/09/19 08/10/19 15:00 23:00 07:00 Intake Total 100 ml 50 ml 2493 ml Output Total 350 ml 665 ml 585 ml Balance -250 ml -615 ml 1908 ml Physical Exam Physical Exam: GENERAL: Sleeping awakens barely on Precedex HEENT: Pupils equal, + NGT, oral cavity dry NECK: Trach/vent LUNGS: rhonchi HEART: S1, S2, regular ABDOMEN: Distended, tender, hypoactive BS, : Lind (08/01) EXTREMITIES: Generalized edema, no cyanosis, SCDs bilaterally DERMATOLOGIC: Warm and dry. No generalized rash. CENTRAL NERVOUS SYSTEM: Extremely weak trying to talk but unable to understand HDC & LIJ (08/01) clean General: Alert, Cooperative Heart: Regular rate, Normal S1, Other (increased rate) Lungs: Crackles, Other (dimished in BLL nc at perrl nose clear neck trach site ok no lad no thyromegaly) Abdomen: Other (distended ) Extremities: Other (ANASARCA) Skin: Other (mottling noted to extremities ) Labs Labs: Laboratory Tests Test 08/09/19 12:48 08/09/19 23:33 08/10/19 05:15 08/10/19 05:30 Glucose (Fingerstick) 157 mg/dL (70-99) 145 mg/dL (70-99) Magnesium Level 2.1 mg/dL (1.8-2.4) White Blood Count 11.9 x10^3/uL (4.0-11.0) Red Blood Count 2.22 x10^6/uL (3.50-5.40) Hemoglobin 6.7 g/dL (12.0-15.5) Hematocrit 20.6 % (36.0-47.0) Mean Corpuscular Volume 93 fL (79-100) Mean Corpuscular Hemoglobin 30 pg (25-35) Mean Corpuscular Hemoglobin Concent 32 g/dL (31-37) Red Cell Distribution Width 18.8 % (11.5-14.5) Platelet Count 394 x10^3/uL (140-400) Neutrophils (%) (Auto) 82 % (31-73) Lymphocytes (%) (Auto) 10 % (24-48) Monocytes (%) (Auto) 7 % (0-9) Eosinophils (%) (Auto) 1 % (0-3) Basophils (%) (Auto) 0 % (0-3) Neutrophils # (Auto) 9.7 x10^3/uL (1.8-7.7) Lymphocytes # (Auto) 1.2 x10^3/uL (1.0-4.8) Monocytes # (Auto) 0.9 x10^3/uL (0.0-1.1) Eosinophils # (Auto) 0.1 x10^3/uL (0.0-0.7) Basophils # (Auto) 0.0 x10^3/uL (0.0-0.2) Sodium Level 141 mmol/L (136-145) Potassium Level 3.5 mmol/L (3.5-5.1) Chloride Level 104 mmol/L (98-107) Carbon Dioxide Level 27 mmol/L (21-32) Anion Gap 10 (6-14) Blood Urea Nitrogen 67 mg/dL (7-20) Creatinine 1.4 mg/dL (0.6-1.0) Estimated GFR (Cockcroft-Gault) 40.0 Glucose Level 143 mg/dL (70-99) Calcium Level 8.8 mg/dL (8.5-10.1) Phosphorus Level 3.1 mg/dL (2.6-4.7) Albumin 2.7 g/dL (3.4-5.0) Test 08/10/19 05:59 Glucose (Fingerstick) 135 mg/dL (70-99) Review of Systems Review of Systems: Unable to obtain Assessment and Plan Assessmemt and Plan Problems Medical Problems: (1) Acute pancreatitis Status: Acute (2) Cholelithiasis Status: Acute Respiratory failure requiring intubation Status post tracheostomy Severe Acute gallstone pancreatitis (she is not a surgical candidate as she is too ill) Acute kidney failure now requiring dialysis Salpingo--itis Gallstones (Calculus of gallbladder with acute cholecystitis without obstruction) HTN Leukocytosis Hypoxia Uterine fibroid Hypoxia with respiratory failure Intractable pain Intractable nausea Plan ICU monitoring Tracheostomy care NG suctioning Vent management per pulm. pressure support as tolerated Dialysis per nephro Merrem (07/26) and Zyvox (07/28) and micafungin Follow cultures Trach care Nutritional support When necessary levo fed Neuro following No plans for sx at present as she is to ill still Discharge disposition pending (? Eventual LTAC) She is still critically ill Prognosis very guarded Total time 32 min Comment Review of Relevant I have reviewed the following items kolby (where applicable) has been applied. Medications: Current Medications Medications (Trade) Dose Ordered Sig/Yvon Route PRN Reason Start Time Stop Time Status Last Admin Dose Admin Sodium Chloride 100 meq/Potassium Chloride 40 meq/ Magnesium Sulfate 20 meq/Calcium Gluconate 15 meq/ Multivitamins 10 ml/Chromium/ Copper/Manganese/ Seleni/Zn 0.5 ml/ Insulin Human Regular 35 unit/ Total Parenteral Nutrition/Amino Acids/Dextrose/ Fat Emulsion Intravenous 1,400 ml @ 58.333 mls/ hr TPN CONT IV 08/09/19 22:00 08/10/19 21:59 08/09/19 21:26 Hemodynamically unstable?: No Is patient in severe pain?: No Is NPO status required?: Yes BEBO KIRBY III DO Aug 10, 2019 12:22
[2019-08-10] MEDS: DAPTOmycin (GENERIC) IVPB 430 MG in IV NORMAL SALINE 50ML 50 ML IV SCH (12:32)
--- NOTE | 2019-08-10 13:38 | PDOC ---
PROGRESS NOTES Assessment Assessment Respiratory failure. Seizure. Metabolic encephalopathy. Fever 102.7 degree, recurrent fever noted. Metabolic acidosis. Diffuse pulmonary infiltrate. Pleural effusion. Pancreatitis, necrotizing. Gallstone. Leukocytosis. Lymphopenia. Electrolytes imbalances. Hyperglycemia. DM. HTN. HLD. Anemia. Abnormal CXR. Obesity. Covid-19 still suspected. RECOMMENDATIONS/PLAN: Continue life support in CCU at the present time. Keppra if has further seizures. Treat medical diseases. OT/PT. EEG: No seizure activity. OBJECTIVE: 08/09/19: No seizures reported over night. Past Medical History Cardiovascular: HTN, Hyperlipidemia Endocrine: Diabetes Family History Unobtainable. Social HistoryU not obtainable Allergies Coded Allergies: Codeine (Verified Allergy, Intermediate, rash, 07/04/19) ROS Unobtainable. NEUROLOGICAL EXAMINATION: Sleeping. Not oriented to time, place and person. PERRL. EOMI not examined. CN: no acute focal findings. Muscle tone: Decreased. Muscle strength: 3 UE, 2+ LE. DTR: 1-2. Plantar reflex: Neutral response bilaterally Gait: not able to walk. Sensory exam: no response to stimuli.. Not able to access cerebellar signs. F-T-N test not performed. Patient examined in CCU. Objective Objective Vital Signs Date Time Temp Pulse Resp B/P (MAP) Pulse Ox O2 Delivery O2 Flow Rate FiO2 08/10/19 13:11 100.0 91 25 151/80 100.0 08/10/19 13:00 100 Ventilator Intake and Output 08/10/19 07:00 Intake Total 2643 ml Output Total 1600 ml Balance 1043 ml IV Total 2643 ml Output Urine Total 1600 ml # Bowel Movements 1 Vitals Signs Vitals VS - Last 72 Hours, by Label Date Time Temp Pulse Resp B/P (MAP) Pulse Ox O2 Delivery O2 Flow Rate FiO2 08/10/19 13:11 100.0 91 25 151/80 100.0 08/10/19 13:00 91 25 151/80 (103) 100 Ventilator 08/10/19 12:00 100.0 86 24 127/81 100.0 08/10/19 12:00 100.0 86 24 127/81 (96) 100 Ventilator 100.0 08/10/19 12:00 Mechanical Ventilator 08/10/19 11:37 100.9 98 35 149/92 100.9 08/10/19 11:27 100.9 103 23 126/57 100.9 08/10/19 11:00 97 23 160/80 (106) 100 Ventilator 08/10/19 10:38 100.2 109 35 180/91 100.2 08/10/19 10:15 100.2 108 35 152/88 100.2 08/10/19 10:00 100.3 108 32 153/73 100.3 08/10/19 10:00 100.3 108 32 153/73 (99) 100 Ventilator 100.3 08/10/19 09:45 100.6 102 23 166/77 100.6 08/10/19 09:36 100.6 106 31 156/67 100.6 08/10/19 09:00 106 31 156/67 (96) 100 Ventilator 08/10/19 08:08 100 Ventilator 08/10/19 08:00 Mechanical Ventilator 08/10/19 08:00 100.6 94 113/62 (79) 100 Ventilator 100.6 08/10/19 07:00 90 35 116/59 (78) 100 Ventilator 08/10/19 06:00 99.7 85 21 131/70 (90) 99 Ventilator 99.7 08/10/19 05:00 96 22 133/73 (93) 99 Ventilator 08/10/19 04:00 95 23 130/59 (82) 98 Ventilator 08/10/19 03:55 100 Ventilator 08/10/19 03:45 Mechanical Ventilator 08/10/19 03:00 102.5 103 22 165/99 (121) 99 Ventilator 102.5 08/10/19 02:00 95 24 130/72 (91) 100 Ventilator 08/10/19 01:00 98 24 138/69 (92) 100 Ventilator 08/10/19 00:00 100.6 90 24 97/56 (70) 100 Ventilator 100.6 08/10/19 00:00 Mechanical Ventilator 08/09/19 23:35 100 Ventilator 08/09/19 23:00 102 29 106/56 (73) 100 Ventilator 08/09/19 22:00 102 24 135/71 (92) 100 Ventilator 08/09/19 21:16 100 Ventilator 08/09/19 21:00 108 27 116/60 (78) 100 Ventilator 08/09/19 20:00 Mechanical Ventilator 4/21/20 20:00 100.6 114 24 126/93 (104) 100 Ventilator 100.6 08/09/19 19:23 100 Ventilator 08/09/19 19:00 104 25 144/91 (108) 100 Ventilator 08/09/19 18:03 110 24 143/64 (90) 98 Ventilator 08/09/19 17:41 118 24 161/88 (112) 100 Ventilator 08/09/19 16:27 Mechanical Ventilator 08/09/19 16:05 102.0 117 22 119/56 (77) 100 Ventilator 102.0 08/09/19 15:55 100 Ventilator 08/09/19 14:47 96 20 148/71 (96) 100 Ventilator 08/09/19 14:03 102 18 84/56 (65) 100 Ventilator 08/09/19 13:28 100 Ventilator 08/09/19 12:53 Mechanical Ventilator 08/09/19 12:51 100.1 106 18 90/46 (61) 100 Ventilator 100.1 08/09/19 12:30 103 18 146/63 (90) 100 Ventilator 08/09/19 12:30 99 Ventilator 08/09/19 08:00 98 18 118/64 (82) 100 Ventilator 08/09/19 08:00 Mechanical Ventilator 08/09/19 07:42 100 Ventilator 08/09/19 07:00 99.9 116 18 133/71 (91) 100 Ventilator 99.9 Laboratory Laboratory Laboratory Tests Test 08/09/19 23:33 08/10/19 05:15 08/10/19 05:30 08/10/19 05:59 Glucose (Fingerstick) 145 mg/dL (70-99) 135 mg/dL (70-99) Magnesium Level 2.1 mg/dL (1.8-2.4) White Blood Count 11.9 x10^3/uL (4.0-11.0) Red Blood Count 2.22 x10^6/uL (3.50-5.40) Hemoglobin 6.7 g/dL (12.0-15.5) Hematocrit 20.6 % (36.0-47.0) Mean Corpuscular Volume 93 fL (79-100) Mean Corpuscular Hemoglobin 30 pg (25-35) Mean Corpuscular Hemoglobin Concent 32 g/dL (31-37) Red Cell Distribution Width 18.8 % (11.5-14.5) Platelet Count 394 x10^3/uL (140-400) Neutrophils (%) (Auto) 82 % (31-73) Lymphocytes (%) (Auto) 10 % (24-48) Monocytes (%) (Auto) 7 % (0-9) Eosinophils (%) (Auto) 1 % (0-3) Basophils (%) (Auto) 0 % (0-3) Neutrophils # (Auto) 9.7 x10^3/uL (1.8-7.7) Lymphocytes # (Auto) 1.2 x10^3/uL (1.0-4.8) Monocytes # (Auto) 0.9 x10^3/uL (0.0-1.1) Eosinophils # (Auto) 0.1 x10^3/uL (0.0-0.7) Basophils # (Auto) 0.0 x10^3/uL (0.0-0.2) Sodium Level 141 mmol/L (136-145) Potassium Level 3.5 mmol/L (3.5-5.1) Chloride Level 104 mmol/L (98-107) Carbon Dioxide Level 27 mmol/L (21-32) Anion Gap 10 (6-14) Blood Urea Nitrogen 67 mg/dL (7-20) Creatinine 1.4 mg/dL (0.6-1.0) Estimated GFR (Cockcroft-Gault) 40.0 Glucose Level 143 mg/dL (70-99) Calcium Level 8.8 mg/dL (8.5-10.1) Phosphorus Level 3.1 mg/dL (2.6-4.7) Albumin 2.7 g/dL (3.4-5.0) Test 08/10/19 12:19 Glucose (Fingerstick) 146 mg/dL (70-99) Microbiology 08/03/19 Aerobic and Anaerobic Culture - Final, Complete 08/03/19 Anaerobic Culture Result 1 (ALEXANDRA) - Final, Complete 08/03/19 Aerobic Culture - Final, Complete 08/03/19 Aerobic Culture Result 1 (ALEXANDRA) - Final, Complete 08/03/19 Gram Stain - Final, Complete 08/03/19 Gram Stain Result 1 (ALEXANDRA) - Final, Complete 08/03/19 Gram Stain Result 2 (ALEXANDRA) - Final, Complete 08/02/19 Blood Culture - Final, Complete NO GROWTH AFTER 5 DAYS 07/31/19 Urine Culture - Final, Complete 07/31/19 Urine Culture Result 1 (ALEXANDRA) - Final, Complete Medication Medications Current Medications Daptomycin 430 mg/ Sodium Chloride 50 ml @ 100 mls/hr Q24H IV Last administered on 08/10/19at 12:32; Start 08/10/19 at 13:00 Daptomycin 430 mg/ Sodium Chloride 50 ml @ 100 mls/hr Q48H IV ; Start 08/11/19 at 09:00; Stop 08/10/19 at 11:55; Status DC Enoxaparin Sodium (Lovenox 100mg Syringe) 100 mg Q12HR SQ ; Start 08/09/19 at 21:00; Status UNV Sodium Chloride 100 meq/Potassium Chloride 40 meq/ Magnesium Sulfate 20 meq/Calcium Gluconate 15 meq/ Multivitamins 10 ml/Chromium/ Copper/Manganese/ Seleni/Zn 0.5 ml/ Insulin Human Regular 35 unit/ Total Parenteral Nutrition/Amino Acids/Dextrose/ Fat Emulsion Intravenous 1,400 ml @ 58.333 mls/ hr TPN CONT IV Last administered on 08/09/19at 21:26; Start 08/09/19 at 22:00; Stop 08/10/19 at 21:59 Sodium Chloride 100 meq/Potassium Chloride 40 meq/ Magnesium Sulfate 20 meq/Calcium Gluconate 15 meq/ Multivitamins 10 ml/Chromium/ Copper/Manganese/ Seleni/Zn 0.5 ml/ Insulin Human Regular 35 unit/ Total Parenteral Nutrition/Amino Acids/Dextrose/ Fat Emulsion Intravenous 1,400 ml @ 58.333 mls/ hr TPN CONT IV ; Start 08/10/19 at 22:00; Stop 08/11/19 at 21:59 Comment Review of Relevant I have reviewed the following items kolby (where applicable) has been applied. ZANDER ZUÑIGA MD Aug 10, 2019 13:38
--- NOTE | 2019-08-10 14:42 | RAD ---
CT ABDOMEN PELVIS WO CONTRAST Indication: Pancreatitis. Fever. Anemia. Exposure: One or more of the following individualized dose reduction techniques were utilized for this examination: 1. Automated exposure control 2. Adjustment of the mA and/or kV according to patient size 3. Use of iterative reconstruction technique. Comparison: 08/02/2019 Technique: No intravenous contrast given. No oral contrast per request. Findings: Evaluation of solid viscera, bowel and vasculature is compromised by the noncontrast technique. There is also image degradation due to the patient's arms which are at the side as well as body habitus. Moderate pleural effusions are identified may be slightly less than what was seen previously. Mild atelectasis/infiltrate in both lungs. No obvious abnormality of liver, spleen, adrenals or kidneys although visualization is very suboptimal due to the above-mentioned reasons. Small 15 mm hepatic lesion is seen, probably also identified previously, cannot be accurately characterize but may just represent a small cyst. There is diffuse enlargement and ill-definition of the pancreas with hypodensity, compatible with progressive pancreatitis and necrosis. Peripancreatic fluid and fatty stranding is again seen. Retroperitoneal fluid collection is again identified, measures slightly larger. On the right, this now measures about 4.1 cm AP diameter, compared with 3.1 cm AP diameter on prior study. This measures 49 Hounsfield units, compatible with complex content. Ascites within the abdomen and pelvis is again identified. NG tube is seen extending into the stomach. The gallbladder is contracted and thick-walled with a gallstone, also seen previously. The aorta demonstrates no obvious aneurysm, mildly calcified. No definite pathologic lymph node enlargement is seen. No significant small bowel or large bowel distention. The distal transverse, descending and sigmoid colons are difficult to evaluate given lack of distention. No definite pneumoperitoneum. Urinary bladder is not distended, cannot be evaluated. Vertebral body height and alignment appear stable in appearance. No evidence of aggressive bone destruction. Diffuse stranding and edema type density within the subcutaneous, retroperitoneal and peritoneal fat, slightly greater, compatible with generalized systemic edema or inflammation, or anasarca. IMPRESSION: 1. Pancreas again appears diffusely enlarged and hypodense compatible with diffuse pancreatitis and pancreatic necrosis. 2. Extensive retroperitoneal fluid collections are again identified, slightly larger in size. 3. Moderate to large volume of abdominal and pelvic ascites is again identified. Mild generalized increase in fatty inflammation or anasarca. 4. Cholelithiasis with possible cholecystitis. 5. Moderate pleural effusions, may be slightly improved. Infiltrate/atelectasis in both lung bases. 6. Small hepatic low-density lesion is too small to characterize, may represent a small cyst, likely unchanged. Electronically signed by: Nicolas Lea MD (08/10/2019 2:39 PM) [facility]
--- NOTE | 2019-08-10 15:00 | PDOC ---
SURGICAL PROGRESS NOTE Subjective Pt awake on vent/trach, does note abd pain Vital Signs Vital Signs Date Time Temp Pulse Resp B/P (MAP) Pulse Ox O2 Delivery O2 Flow Rate FiO2 08/10/19 14:20 44 94 08/10/19 14:00 171 196/103 (134) Ventilator 08/10/19 13:11 100.0 100.0 I&O Intake and Output 08/10/19 07:00 Intake Total 2643 ml Output Total 1600 ml Balance 1043 ml IV Total 2643 ml Output Urine Total 1600 ml # Bowel Movements 1 PATIENT HAS A ROSARIO: Yes (accurate i and os) General: Alert, Cooperative, mild distress Abdomen: Soft, Other (some diffuse TTP) Labs Laboratory Tests Test 08/08/19 18:27 08/09/19 00:01 08/09/19 05:45 08/09/19 06:04 Glucose (Fingerstick) 145 mg/dL (70-99) 170 mg/dL (70-99) 136 mg/dL (70-99) White Blood Count 16.3 x10^3/uL (4.0-11.0) Red Blood Count 2.68 x10^6/uL (3.50-5.40) Hemoglobin 8.2 g/dL (12.0-15.5) Hematocrit 25.5 % (36.0-47.0) Mean Corpuscular Volume 95 fL (79-100) Mean Corpuscular Hemoglobin 31 pg (25-35) Mean Corpuscular Hemoglobin Concent 32 g/dL (31-37) Red Cell Distribution Width 18.8 % (11.5-14.5) Platelet Count 521 x10^3/uL (140-400) Neutrophils (%) (Auto) 79 % (31-73) Lymphocytes (%) (Auto) 13 % (24-48) Monocytes (%) (Auto) 8 % (0-9) Eosinophils (%) (Auto) 0 % (0-3) Basophils (%) (Auto) 1 % (0-3) Neutrophils # (Auto) 12.8 x10^3/uL (1.8-7.7) Lymphocytes # (Auto) 2.1 x10^3/uL (1.0-4.8) Monocytes # (Auto) 1.2 x10^3/uL (0.0-1.1) Eosinophils # (Auto) 0.0 x10^3/uL (0.0-0.7) Basophils # (Auto) 0.1 x10^3/uL (0.0-0.2) Segmented Neutrophils % 61 % (35-66) Band Neutrophils % 26 % (0-9) Lymphocytes % 6 % (24-48) Monocytes % 7 % (0-10) Toxic Granulation Slight Platelet Estimate Increased (ADEQUATE) Hypochromasia Slight Anisocytosis Slight Microcytosis Slight Sodium Level 142 mmol/L (136-145) Potassium Level 3.7 mmol/L (3.5-5.1) Chloride Level 105 mmol/L (98-107) Carbon Dioxide Level 23 mmol/L (21-32) Anion Gap 14 (6-14) Blood Urea Nitrogen 89 mg/dL (7-20) Creatinine 1.6 mg/dL (0.6-1.0) Estimated GFR (Cockcroft-Gault) 34.3 Glucose Level 141 mg/dL (70-99) Calcium Level 8.9 mg/dL (8.5-10.1) Magnesium Level 2.2 mg/dL (1.8-2.4) Test 08/09/19 12:48 08/09/19 23:33 08/10/19 05:15 08/10/19 05:30 Glucose (Fingerstick) 157 mg/dL (70-99) 145 mg/dL (70-99) Magnesium Level 2.1 mg/dL (1.8-2.4) White Blood Count 11.9 x10^3/uL (4.0-11.0) Red Blood Count 2.22 x10^6/uL (3.50-5.40) Hemoglobin 6.7 g/dL (12.0-15.5) Hematocrit 20.6 % (36.0-47.0) Mean Corpuscular Volume 93 fL (79-100) Mean Corpuscular Hemoglobin 30 pg (25-35) Mean Corpuscular Hemoglobin Concent 32 g/dL (31-37) Red Cell Distribution Width 18.8 % (11.5-14.5) Platelet Count 394 x10^3/uL (140-400) Neutrophils (%) (Auto) 82 % (31-73) Lymphocytes (%) (Auto) 10 % (24-48) Monocytes (%) (Auto) 7 % (0-9) Eosinophils (%) (Auto) 1 % (0-3) Basophils (%) (Auto) 0 % (0-3) Neutrophils # (Auto) 9.7 x10^3/uL (1.8-7.7) Lymphocytes # (Auto) 1.2 x10^3/uL (1.0-4.8) Monocytes # (Auto) 0.9 x10^3/uL (0.0-1.1) Eosinophils # (Auto) 0.1 x10^3/uL (0.0-0.7) Basophils # (Auto) 0.0 x10^3/uL (0.0-0.2) Sodium Level 141 mmol/L (136-145) Potassium Level 3.5 mmol/L (3.5-5.1) Chloride Level 104 mmol/L (98-107) Carbon Dioxide Level 27 mmol/L (21-32) Anion Gap 10 (6-14) Blood Urea Nitrogen 67 mg/dL (7-20) Creatinine 1.4 mg/dL (0.6-1.0) Estimated GFR (Cockcroft-Gault) 40.0 Glucose Level 143 mg/dL (70-99) Calcium Level 8.8 mg/dL (8.5-10.1) Phosphorus Level 3.1 mg/dL (2.6-4.7) Albumin 2.7 g/dL (3.4-5.0) Test 08/10/19 05:59 08/10/19 12:19 Glucose (Fingerstick) 135 mg/dL (70-99) 146 mg/dL (70-99) Laboratory Tests Test 08/09/19 23:33 08/10/19 05:15 08/10/19 05:30 08/10/19 05:59 Glucose (Fingerstick) 145 mg/dL (70-99) 135 mg/dL (70-99) Magnesium Level 2.1 mg/dL (1.8-2.4) White Blood Count 11.9 x10^3/uL (4.0-11.0) Red Blood Count 2.22 x10^6/uL (3.50-5.40) Hemoglobin 6.7 g/dL (12.0-15.5) Hematocrit 20.6 % (36.0-47.0) Mean Corpuscular Volume 93 fL (79-100) Mean Corpuscular Hemoglobin 30 pg (25-35) Mean Corpuscular Hemoglobin Concent 32 g/dL (31-37) Red Cell Distribution Width 18.8 % (11.5-14.5) Platelet Count 394 x10^3/uL (140-400) Neutrophils (%) (Auto) 82 % (31-73) Lymphocytes (%) (Auto) 10 % (24-48) Monocytes (%) (Auto) 7 % (0-9) Eosinophils (%) (Auto) 1 % (0-3) Basophils (%) (Auto) 0 % (0-3) Neutrophils # (Auto) 9.7 x10^3/uL (1.8-7.7) Lymphocytes # (Auto) 1.2 x10^3/uL (1.0-4.8) Monocytes # (Auto) 0.9 x10^3/uL (0.0-1.1) Eosinophils # (Auto) 0.1 x10^3/uL (0.0-0.7) Basophils # (Auto) 0.0 x10^3/uL (0.0-0.2) Sodium Level 141 mmol/L (136-145) Potassium Level 3.5 mmol/L (3.5-5.1) Chloride Level 104 mmol/L (98-107) Carbon Dioxide Level 27 mmol/L (21-32) Anion Gap 10 (6-14) Blood Urea Nitrogen 67 mg/dL (7-20) Creatinine 1.4 mg/dL (0.6-1.0) Estimated GFR (Cockcroft-Gault) 40.0 Glucose Level 143 mg/dL (70-99) Calcium Level 8.8 mg/dL (8.5-10.1) Phosphorus Level 3.1 mg/dL (2.6-4.7) Albumin 2.7 g/dL (3.4-5.0) Test 08/10/19 12:19 Glucose (Fingerstick) 146 mg/dL (70-99) I have reviewed the following CT with persistent, unimproved, pancreatic necrosis Problem List Problems Medical Problems: (1) Acute pancreatitis Status: Acute (2) Cholelithiasis Status: Acute Assessment/Plan severe pancreatitis. Given severe persistent pancreatic necrosis and overall stability of other organ systems, will consider pancreatic necrosectomy and cholecystectomy. Ideally, will tentatively plan next week (6 weeks from initial insult). DAVON SIMMS MD Aug 10, 2019 15:00
--- NOTE | 2019-08-10 15:38 | NUR ---
SW following. Pt still on a vent, trach etc, not ready for discharge. Family working on getting guardianship. SW will continue to follow.
[2019-08-10] MEDS ORDERED: AMINO ACID IV SCH ×10 (22:00)
[2019-08-10] MEDS ORDERED: TOTAL PARENTERAL NUTRITION IV SCH ×10 (22:00)
[2019-08-10] MEDS ORDERED: [UNRECOGNIZED DRUG - OTHER] IV SCH ×10 (22:00)
[2019-08-10] MEDS ORDERED: DEXTROSE 70% IV SCH ×10 (22:00)
[2019-08-11] VITALS (24 sets, daily range): BP systolic 110–190; BP diastolic 56–146
[2019-08-11] MEDS: fentaNYL PF VIAL 100 MCG/2 ML VIAL IVP PRN ×3 (02:01→20:31)
[2019-08-11] MEDS: DEXMEDETOMIDINE 400 MCG in IV NORMAL SALINE 100ML 96 ML IV PRN ×8 (02:03→21:15)
--- NOTE | 2019-08-11 05:00 | NUR ---
Pt has slept for longer periods tonight. Has rubbed her stomach and nods yes to pain in abdomen. Fentanyl was give times 2 at patients request. All tubes patent but patient gets very anxious when Trach care is done or when NG placement is verified. Boyfriend, Jamaal, was here for about 1 hour last night and patient was awake and responding to him.
[2019-08-11] MEDS: INSULIN LISPRO 300 UNITS/3 ML VIAL. SQ SCH ×4 (06:00→18:00)
[2019-08-11 06:49] LABS: BASO % 0 % (0-3); EOS % 0 % (0-3); HEMATOCRIT 28.6 % (36.0-47.0); LYMPH # 1.5 x10^3/uL (1.0-4.8); LYMPH % 10 % (24-48); MEAN CORPUSCULAR HEMOGLOBIN 30 pg (25-35); MEAN CORPUSCULAR HGB CONC 33 g/dL (31-37); MEAN CORPUSCULAR VOLUME 90 fL (79-100); MONO # 1.3 x10^3/uL (0.0-1.1); MONO % 8 % (0-9); NEUT # 12.8 x10^3/uL (1.8-7.7); NEUT % 82 % (31-73); PLATELET COUNT 343 x10^3/uL (140-400); RED BLOOD COUNT 3.19 x10^6/uL (3.50-5.40); RED CELL DISTRIBUTION WIDTH 18.4 % (11.5-14.5); WHITE BLOOD COUNT 15.6 x10^3/uL (4.0-11.0)
[2019-08-11 06:57] LABS: HEMOGLOBIN 9.4 g/dL (12.0-15.5)
[2019-08-11 07:07] LABS: CALCIUM 9.4 mg/dL (8.5-10.1); CREATININE 1.4 mg/dL (0.6-1.0); PHOSPHORUS 3.8 mg/dL (2.6-4.7); POTASSIUM 3.6 mmol/L (3.5-5.1)
[2019-08-11] MEDS ORDERED: DAPTOmycin (GENERIC) IVPB 430 MG in IV NORMAL SALINE 50ML 50 ML IV SCH (09:00)
--- NOTE | 2019-08-11 09:02 | PDOC ---
SURGICAL PROGRESS NOTE Subjective awake no acute changes Vital Signs Vital Signs Date Time Temp Pulse Resp B/P (MAP) Pulse Ox O2 Delivery O2 Flow Rate FiO2 08/11/19 07:26 98 Ventilator 08/11/19 06:00 101.0 144 26 161/89 (113) 101.0 I&O Intake and Output 08/11/19 07:00 Intake Total 4517 ml Output Total 2565 ml Balance 1952 ml Intake Oral 0 ml IV Total 2502 ml Blood Product IV Normal Saline Flush 2015 ml Output Urine Total 2565 ml PATIENT HAS A ROSARIO: Yes General: Other (opens eyes on exam) HEENT: Other (trach intact) Abdomen: Other (distended, TTP on exam) Labs Laboratory Tests Test 08/09/19 12:48 08/09/19 23:33 08/10/19 05:15 08/10/19 05:30 Glucose (Fingerstick) 157 mg/dL (70-99) 145 mg/dL (70-99) Magnesium Level 2.1 mg/dL (1.8-2.4) White Blood Count 11.9 x10^3/uL (4.0-11.0) Red Blood Count 2.22 x10^6/uL (3.50-5.40) Hemoglobin 6.7 g/dL (12.0-15.5) Hematocrit 20.6 % (36.0-47.0) Mean Corpuscular Volume 93 fL (79-100) Mean Corpuscular Hemoglobin 30 pg (25-35) Mean Corpuscular Hemoglobin Concent 32 g/dL (31-37) Red Cell Distribution Width 18.8 % (11.5-14.5) Platelet Count 394 x10^3/uL (140-400) Neutrophils (%) (Auto) 82 % (31-73) Lymphocytes (%) (Auto) 10 % (24-48) Monocytes (%) (Auto) 7 % (0-9) Eosinophils (%) (Auto) 1 % (0-3) Basophils (%) (Auto) 0 % (0-3) Neutrophils # (Auto) 9.7 x10^3/uL (1.8-7.7) Lymphocytes # (Auto) 1.2 x10^3/uL (1.0-4.8) Monocytes # (Auto) 0.9 x10^3/uL (0.0-1.1) Eosinophils # (Auto) 0.1 x10^3/uL (0.0-0.7) Basophils # (Auto) 0.0 x10^3/uL (0.0-0.2) Sodium Level 141 mmol/L (136-145) Potassium Level 3.5 mmol/L (3.5-5.1) Chloride Level 104 mmol/L (98-107) Carbon Dioxide Level 27 mmol/L (21-32) Anion Gap 10 (6-14) Blood Urea Nitrogen 67 mg/dL (7-20) Creatinine 1.4 mg/dL (0.6-1.0) Estimated GFR (Cockcroft-Gault) 40.0 Glucose Level 143 mg/dL (70-99) Calcium Level 8.8 mg/dL (8.5-10.1) Phosphorus Level 3.1 mg/dL (2.6-4.7) Albumin 2.7 g/dL (3.4-5.0) Test 08/10/19 05:59 08/10/19 12:19 08/10/19 18:19 08/11/19 00:14 Glucose (Fingerstick) 135 mg/dL (70-99) 146 mg/dL (70-99) 146 mg/dL (70-99) 141 mg/dL (70-99) Test 08/11/19 06:20 08/11/19 06:23 08/11/19 06:35 Sodium Level 144 mmol/L (136-145) Potassium Level 3.6 mmol/L (3.5-5.1) Chloride Level 107 mmol/L (98-107) Carbon Dioxide Level 26 mmol/L (21-32) Anion Gap 11 (6-14) Blood Urea Nitrogen 78 mg/dL (7-20) Creatinine 1.4 mg/dL (0.6-1.0) Estimated GFR (Cockcroft-Gault) 40.0 Glucose Level 146 mg/dL (70-99) Calcium Level 9.4 mg/dL (8.5-10.1) Phosphorus Level 3.8 mg/dL (2.6-4.7) Triglycerides Level 148 mg/dL (0-150) Glucose (Fingerstick) 134 mg/dL (70-99) White Blood Count 15.6 x10^3/uL (4.0-11.0) Red Blood Count 3.19 x10^6/uL (3.50-5.40) Hemoglobin 9.4 g/dL (12.0-15.5) Hematocrit 28.6 % (36.0-47.0) Mean Corpuscular Volume 90 fL (79-100) Mean Corpuscular Hemoglobin 30 pg (25-35) Mean Corpuscular Hemoglobin Concent 33 g/dL (31-37) Red Cell Distribution Width 18.4 % (11.5-14.5) Platelet Count 343 x10^3/uL (140-400) Neutrophils (%) (Auto) 82 % (31-73) Lymphocytes (%) (Auto) 10 % (24-48) Monocytes (%) (Auto) 8 % (0-9) Eosinophils (%) (Auto) 0 % (0-3) Basophils (%) (Auto) 0 % (0-3) Neutrophils # (Auto) 12.8 x10^3/uL (1.8-7.7) Lymphocytes # (Auto) 1.5 x10^3/uL (1.0-4.8) Monocytes # (Auto) 1.3 x10^3/uL (0.0-1.1) Eosinophils # (Auto) 0.0 x10^3/uL (0.0-0.7) Basophils # (Auto) 0.0 x10^3/uL (0.0-0.2) Laboratory Tests Test 08/10/19 12:19 08/10/19 18:19 08/11/19 00:14 08/11/19 06:20 Glucose (Fingerstick) 146 mg/dL (70-99) 146 mg/dL (70-99) 141 mg/dL (70-99) Sodium Level 144 mmol/L (136-145) Potassium Level 3.6 mmol/L (3.5-5.1) Chloride Level 107 mmol/L (98-107) Carbon Dioxide Level 26 mmol/L (21-32) Anion Gap 11 (6-14) Blood Urea Nitrogen 78 mg/dL (7-20) Creatinine 1.4 mg/dL (0.6-1.0) Estimated GFR (Cockcroft-Gault) 40.0 Glucose Level 146 mg/dL (70-99) Calcium Level 9.4 mg/dL (8.5-10.1) Phosphorus Level 3.8 mg/dL (2.6-4.7) Triglycerides Level 148 mg/dL (0-150) Test 08/11/19 06:23 08/11/19 06:35 Glucose (Fingerstick) 134 mg/dL (70-99) White Blood Count 15.6 x10^3/uL (4.0-11.0) Red Blood Count 3.19 x10^6/uL (3.50-5.40) Hemoglobin 9.4 g/dL (12.0-15.5) Hematocrit 28.6 % (36.0-47.0) Mean Corpuscular Volume 90 fL (79-100) Mean Corpuscular Hemoglobin 30 pg (25-35) Mean Corpuscular Hemoglobin Concent 33 g/dL (31-37) Red Cell Distribution Width 18.4 % (11.5-14.5) Platelet Count 343 x10^3/uL (140-400) Neutrophils (%) (Auto) 82 % (31-73) Lymphocytes (%) (Auto) 10 % (24-48) Monocytes (%) (Auto) 8 % (0-9) Eosinophils (%) (Auto) 0 % (0-3) Basophils (%) (Auto) 0 % (0-3) Neutrophils # (Auto) 12.8 x10^3/uL (1.8-7.7) Lymphocytes # (Auto) 1.5 x10^3/uL (1.0-4.8) Monocytes # (Auto) 1.3 x10^3/uL (0.0-1.1) Eosinophils # (Auto) 0.0 x10^3/uL (0.0-0.7) Basophils # (Auto) 0.0 x10^3/uL (0.0-0.2) Problem List Problems Medical Problems: (1) Acute pancreatitis Status: Acute (2) Cholelithiasis Status: Acute Assessment/Plan surgery plans next week per LISANDRO Ramires APRN Aug 11, 2019 09:02
--- NOTE | 2019-08-11 09:15 | PDOC ---
Infectious Disease Note Subjective Subjective Not feeling well, abd pain present Remains on vent via trach, TPN cont to be febrile ROS ROS no n/v/d/ Vital Sign Vital Signs Vital Signs Date Time Temp Pulse Resp B/P (MAP) Pulse Ox O2 Delivery O2 Flow Rate FiO2 08/11/19 07:26 98 Ventilator 08/11/19 06:00 101.0 144 26 161/89 (113) 101.0 Physical Exam PHYSICAL EXAM GENERAL: Sleeping awakens barely on Precedex HEENT: Pupils equal, + NGT, oral cavity dry NECK: Trach/vent LUNGS: rhonchi HEART: S1, S2, regular ABDOMEN: Distended, tender, hypoactive BS, : Lind (08/01) EXTREMITIES: Generalized edema, no cyanosis, SCDs bilaterally DERMATOLOGIC: Warm and dry. No generalized rash. CENTRAL NERVOUS SYSTEM: Extremely weak trying to talk but unable to understand HDC & LIJ (08/01) clean Labs Lab Laboratory Tests Test 08/10/19 12:19 08/10/19 18:19 08/11/19 00:14 08/11/19 06:20 Glucose (Fingerstick) 146 mg/dL (70-99) 146 mg/dL (70-99) 141 mg/dL (70-99) Sodium Level 144 mmol/L (136-145) Potassium Level 3.6 mmol/L (3.5-5.1) Chloride Level 107 mmol/L (98-107) Carbon Dioxide Level 26 mmol/L (21-32) Anion Gap 11 (6-14) Blood Urea Nitrogen 78 mg/dL (7-20) Creatinine 1.4 mg/dL (0.6-1.0) Estimated GFR (Cockcroft-Gault) 40.0 Glucose Level 146 mg/dL (70-99) Calcium Level 9.4 mg/dL (8.5-10.1) Phosphorus Level 3.8 mg/dL (2.6-4.7) Triglycerides Level 148 mg/dL (0-150) Test 08/11/19 06:23 08/11/19 06:35 Glucose (Fingerstick) 134 mg/dL (70-99) White Blood Count 15.6 x10^3/uL (4.0-11.0) Red Blood Count 3.19 x10^6/uL (3.50-5.40) Hemoglobin 9.4 g/dL (12.0-15.5) Hematocrit 28.6 % (36.0-47.0) Mean Corpuscular Volume 90 fL (79-100) Mean Corpuscular Hemoglobin 30 pg (25-35) Mean Corpuscular Hemoglobin Concent 33 g/dL (31-37) Red Cell Distribution Width 18.4 % (11.5-14.5) Platelet Count 343 x10^3/uL (140-400) Neutrophils (%) (Auto) 82 % (31-73) Lymphocytes (%) (Auto) 10 % (24-48) Monocytes (%) (Auto) 8 % (0-9) Eosinophils (%) (Auto) 0 % (0-3) Basophils (%) (Auto) 0 % (0-3) Neutrophils # (Auto) 12.8 x10^3/uL (1.8-7.7) Lymphocytes # (Auto) 1.5 x10^3/uL (1.0-4.8) Monocytes # (Auto) 1.3 x10^3/uL (0.0-1.1) Eosinophils # (Auto) 0.0 x10^3/uL (0.0-0.7) Basophils # (Auto) 0.0 x10^3/uL (0.0-0.2) Micro BC neg Abd culture neg, cell count not done Objective Assessment Leukocytosis 07/28 -improved Fever - New left IJ/Lind 08/01. PICC removed 08/01 -? pancreatitis. blood cults 07/28 neg. Urine - neg, Ascites s/p paracentesis 08/02 - 4300 ml. cultures neg to date Severe acute gallstone pancreatitis with necrosis -CT 08/01 necrotizing pancreatitis with fluid and phlegmon at the pancreas Hypotension off levaphed Joseph Pleural effusions JUANA requiring HD - s/p RIJ temporary dialysis catheter replacement, 07/20 Vent dependent respiratory failure -s/p Trach placement -lung opacities, COVID-19 neg Anasarca - worse Anemia - S/p PRBC 07/13 Hypocalcemia Prediabetes HTN Diarrhea, C. diff neg 07/10 Anemia - S/p PRBCs Plan Plan of Care cont merrem (07/26) and ,micafungin, and dapto Gen surgery following Maintain aspiration precautions Anemia deferred to primary CBC in am Critically ill zyvox changed to dapto , to rule out serotonin sy causing fever, I think sec to cont fever, and broad coverage, need to consider pancreatic necrosectomy d/w surgery and GI repeat ct noted drug fever is possible , though less likely , no rash, no eosinophilia, and pt had beta lactam before D/w nursing KIMMY JONES MD Aug 11, 2019 09:15
[2019-08-11] MEDS: PANTOPRAZOLE IV PUSH 40 MG VIAL. IVP SCH (09:16)
[2019-08-11] MEDS: ONDANSETRON PF 4 MG/2 ML VIAL. IV PRN ×2 (09:17→18:00)
[2019-08-11] MEDS: MEROPENEM 500 MG in IV NORMAL SALINE 50ML 50 ML IV SCH ×2 (09:18→21:12)
[2019-08-11] MEDS: MICAFUNGIN 100 MG in IV DEXTROSE 5% 100ML 100 ML IV SCH (09:18)
--- NOTE | 2019-08-11 09:18 | PDOC ---
Subjective: Subjective: Indicates pain. Objective: Objective: D/w Dr. Neri. D/w nurse - no significant change though will not need to dialyze today. Vital Signs: Vital Signs Date Time Temp Pulse Resp B/P (MAP) Pulse Ox O2 Delivery O2 Flow Rate FiO2 08/11/19 07:26 98 Ventilator 08/11/19 06:00 101.0 144 26 161/89 (113) 101.0 Labs: Laboratory Tests Test 08/10/19 12:19 08/10/19 18:19 08/11/19 00:14 08/11/19 06:20 Glucose (Fingerstick) 146 mg/dL 146 mg/dL 141 mg/dL Sodium Level 144 mmol/L Potassium Level 3.6 mmol/L Chloride Level 107 mmol/L Carbon Dioxide Level 26 mmol/L Anion Gap 11 Blood Urea Nitrogen 78 mg/dL Creatinine 1.4 mg/dL Estimated GFR (Cockcroft-Gault) 40.0 Glucose Level 146 mg/dL Calcium Level 9.4 mg/dL Phosphorus Level 3.8 mg/dL Triglycerides Level 148 mg/dL Test 08/11/19 06:23 08/11/19 06:35 Glucose (Fingerstick) 134 mg/dL White Blood Count 15.6 x10^3/uL Red Blood Count 3.19 x10^6/uL Hemoglobin 9.4 g/dL Hematocrit 28.6 % Mean Corpuscular Volume 90 fL Mean Corpuscular Hemoglobin 30 pg Mean Corpuscular Hemoglobin Concent 33 g/dL Red Cell Distribution Width 18.4 % Platelet Count 343 x10^3/uL Neutrophils (%) (Auto) 82 % Lymphocytes (%) (Auto) 10 % Monocytes (%) (Auto) 8 % Eosinophils (%) (Auto) 0 % Basophils (%) (Auto) 0 % Neutrophils # (Auto) 12.8 x10^3/uL Lymphocytes # (Auto) 1.5 x10^3/uL Monocytes # (Auto) 1.3 x10^3/uL Eosinophils # (Auto) 0.0 x10^3/uL Basophils # (Auto) 0.0 x10^3/uL Imaging: CT A/P IMPRESSION: 1. Pancreas again appears diffusely enlarged and hypodense compatible with diffuse pancreatitis and pancreatic necrosis. 2. Extensive retroperitoneal fluid collections are again identified, slightly larger in size. 3. Moderate to large volume of abdominal and pelvic ascites is again identified. Mild generalized increase in fatty inflammation or anasarca. 4. Cholelithiasis with possible cholecystitis. 5. Moderate pleural effusions, may be slightly improved. Infiltrate/atelectasis in both lung bases. 6. Small hepatic low-density lesion is too small to characterize, may represent a small cyst, likely unchanged. PE: GEN: ill LUNGS: trach/vent, diminished HEART: tachycardic ABD: distended, uncomfortable NEURO/PSYCH: waves hello A/P: Gallstone pancreatitis w/ necrosis, MOSF, fever -- Interval CT as above. Tentatively plans for surgery next week. Hemodynamically unstable?: No Is patient in severe pain?: No Is NPO status required?: Yes CYNDEE FALCON Aug 11, 2019 09:18
--- NOTE | 2019-08-11 09:33 | PDOC ---
SUBJECTIVE ROS stable OBJECTIVE Vital Signs Vital Signs Date Time Temp Pulse Resp B/P (MAP) Pulse Ox O2 Delivery O2 Flow Rate FiO2 08/11/19 07:26 98 Ventilator 08/11/19 06:00 101.0 144 26 161/89 (113) 101.0 I & 0 Intake and Output 08/11/19 07:00 Intake Total 4517 ml Output Total 2565 ml Balance 1952 ml Intake Oral 0 ml IV Total 2502 ml Blood Product IV Normal Saline Flush 2015 ml Output Urine Total 2565 ml PHYSICAL EXAM Physical Exam GENERAL: awake, alert HEENT: + NGT, NECK: Trach/vent LUNGS: rhonchi HEART: S1, S2, regular ABDOMEN: Distended, tender, hypoactive BS, : Lind (08/01) EXTREMITIES: Generalized edema, no cyanosis, DERMATOLOGIC: No generalized rash. CENTRAL NERVOUS SYSTEM: Nods appropriately to few questions, HDC (08/01) DIAGNOSIS/ASSESSMENT Assessment & Plan ARF-- ATN,requiring CRRT and HD Switched from QD HD to TTS schedule Good UOP , Cr and e-lytes stable , currently on TPN , hold off HD today , re- eval in am Monitor for renal recovery , supportive care, avoid nephrotoxins Anemia- Currently on HIRAM Hgb dropped, s/p PRBC ,managed by primary/GI Recurrent fever Anasarca due to 3rd spacing stable Hyperkalemia- resolved AC Pancreatitis, early developing necrosis No intervention per GS CT SCAN 08/09 - Pancreas again appears diffusely enlarged and hypodense compatible with diffuse pancreatitis and pancreatic necrosis. Extensive retroperitoneal fluid collections slightly larger in size,Moderate to large volume of abdominal and pelvic ascites is again identified. Mild generalized increase in fatty inflammation or anasarca. Cholelithiasis with possible cholecystitis. Moderate pleural effusions, may be slightly improved. Infiltrate/atelectasis in both lung bases. Ascites - post paracentesis on 08/02- 4300 cc of thin, light brown fluid was removed Acute hypoxic resp failure ,bilateral pleural effusion Trach in place , On Vent HTN COVID-19 neg, 07/13 COMMENT/RELEVANT DATA Meds Current Medications Medications (Trade) Dose Ordered Sig/Vyon Start Time Stop Time Status Last Admin Dose Admin Acetaminophen (Tylenol Supp) 650 mg PRN Q6HRS PRN 07/12/19 10:30 08/10/19 17:01 650 MG Acetaminophen (Tylenol) 650 mg PRN Q6HRS PRN 07/09/19 03:36 08/04/19 19:56 650 MG Albumin Human 200 ml @ 200 mls/hr 1X PRN PRN 08/09/19 08:00 08/09/19 13:59 DC 08/09/19 08:40 200 MLS/HR Albuterol Sulfate (Ventolin Neb Soln) 2.5 mg 1X ONCE 07/05/19 22:30 07/05/19 22:31 DC 07/06/19 00:56 2.5 MG Alteplase, Recombinant (Cathflo For Central Catheter Clearance) 1 mg 1X ONCE 07/19/19 22:00 07/19/19 22:01 DC 07/19/19 22:05 1 MG Amino Acids/ Glycerin/ Electrolytes 1,000 ml @ 75 mls/hr [id number] 08/08/19 21:15 UNV Artificial Tears (Artificial Tears) 1 drop PRN Q1HR PRN 07/11/19 08:15 Atenolol (Tenormin) 100 mg DAILY 07/05/19 09:00 07/04/19 20:08 DC Atropine Sulfate (ATROPINE 0.5mg SYRINGE) 0.5 mg PRN Q5MIN PRN 07/21/19 08:15 Benzocaine (Hurricaine One) 1 spray 1X ONCE 07/08/19 14:30 07/08/19 14:31 DC 07/08/19 16:38 1 SPRAY Bupivacaine HCl/ Epinephrine Bitart (Sensorcain-Epi 0.5%-1:827844 Mpf) 30 ml STK-MED ONCE 07/25/19 11:00 07/25/19 11:01 DC 07/25/19 11:44 1 ML Calcium Carbonate/ Glycine (Tums) 500 mg PRN AFTMEALHC PRN 07/06/19 17:45 Calcium Chloride 1000 mg/Sodium Chloride 110 ml @ 220 mls/hr 1X ONCE 07/05/19 22:30 07/05/19 22:59 DC 07/05/19 22:11 220 MLS/HR Calcium Chloride 3000 mg/Sodium Chloride 1,030 ml @ 50 mls/hr [id number] 07/07/19 08:00 07/09/19 15:23 DC 07/09/19 02:17 50 MLS/HR Calcium Gluconate (Calcium Gluconate) 2,000 mg 1X ONCE 07/07/19 02:15 07/07/19 02:16 DC 07/07/19 02:19 2,000 MG Calcium Gluconate 1000 mg/Sodium Chloride 110 ml @ 220 mls/hr 1X ONCE 07/06/19 03:30 07/06/19 03:59 DC 07/06/19 03:21 220 MLS/HR Calcium Gluconate 2000 mg/Sodium Chloride 120 ml @ 220 mls/hr 1X ONCE 07/06/19 07:30 07/06/19 08:02 DC 07/06/19 09:05 220 MLS/HR Cefepime HCl (Maxipime) 2 gm Q12HR 07/13/19 09:00 07/27/19 09:58 DC 07/26/19 20:56 2 GM Cellulose (Surgicel Fibrillar 1x2) 1 each STK-MED ONCE 07/25/19 11:00 07/25/19 11:01 DC Cellulose (Surgicel Hemostat 4x8) 1 each STK-MED ONCE 07/25/19 11:55 07/25/19 11:56 DC 07/25/19 11:44 1 EACH Daptomycin 430 mg/ Sodium Chloride 50 ml @ 100 mls/hr Q24H 08/10/19 13:00 08/10/19 12:32 100 MLS/HR Daptomycin 500 mg/ Sodium Chloride 50 ml @ 100 mls/hr Q48H 07/13/19 08:30 07/29/19 10:07 DC 07/29/19 09:57 100 MLS/HR Dexmedetomidine HCl 400 mcg/ Sodium Chloride 100 ml @ 0 mls/hr CONT PRN 07/21/19 08:15 08/11/19 06:53 30.5 MLS/HR Dextrose (Dextrose 50%-Water Syringe) 12.5 gm PRN Q15MIN PRN 07/04/19 09:30 Digoxin (Lanoxin) 125 mcg 1X ONCE 07/07/19 18:00 07/07/19 18:01 DC 07/07/19 17:10 125 MCG Diphenhydramine HCl (Benadryl) 25 mg 1X PRN PRN 08/01/19 09:45 08/02/19 09:44 DC Enoxaparin Sodium (Lovenox 100mg Syringe) 100 mg Q12HR 08/09/19 21:00 UNV Etomidate (Amidate) 8 mg 1X ONCE 07/11/19 08:30 07/11/19 08:31 DC 07/11/19 08:33 8 MG Fentanyl Citrate (Fentanyl 2ml Vial) 25 mcg PRN Q2HR PRN 08/08/19 21:00 Furosemide (Lasix) 40 mg 1X ONCE 08/01/19 14:30 08/01/19 14:31 DC 08/01/19 14:39 40 MG Heparin Sodium (Porcine) (Hep Lock Adult) 500 unit STK-MED ONCE 07/26/19 09:29 07/26/19 09:30 DC Heparin Sodium (Porcine) (Heparin Sodium) 5,000 unit Q12HR 07/22/19 21:00 08/10/19 21:24 5,000 UNIT Hydromorphone HCl (Dilaudid) 1 mg PRN Q3HRS PRN 07/05/19 12:00 07/19/19 00:25 DC 07/11/19 05:13 1 MG Info (CONTRAST GIVEN -- Rx MONITORING) 1 each PRN DAILY PRN 07/18/19 11:45 07/20/19 11:44 DC Info (Icu Electrolyte Protocol) 1 ea CONT PRN PRN 07/17/19 13:15 Info (PHARMACY MONITORING -- do not chart) 1 each PRN DAILY PRN 08/09/19 08:00 UNV Info (Tpn Per Pharmacy) 1 each PRN DAILY PRN 07/06/19 12:30 UNV Insulin Human Lispro (HumaLOG) 0-9 UNITS Q6HRS 07/04/19 09:30 08/09/19 00:06 4 UNITS Insulin Human Regular (HumuLIN R VIAL) 5 unit 1X ONCE 07/05/19 22:30 07/05/19 22:31 DC 07/05/19 22:14 5 UNIT Iohexol (Omnipaque 240 Mg/ml) 30 ml 1X ONCE 07/18/19 11:30 07/18/19 11:33 DC 07/18/19 11:30 30 ML Iohexol (Omnipaque 300 Mg/ml) 60 ml 1X ONCE 07/05/19 17:00 07/05/19 17:01 DC 07/05/19 17:20 60 ML Iohexol (Omnipaque 350 Mg/ml) 90 ml 1X ONCE 07/04/19 03:30 07/04/19 03:31 DC 07/04/19 03:25 90 ML Ketorolac Tromethamine (Toradol 30mg Vial) 30 mg 1X ONCE 07/04/19 03:00 07/04/19 03:01 DC 07/04/19 02:54 30 MG Lidocaine HCl (Buffered Lidocaine 1%) 6 ml 1X ONCE 08/03/19 13:30 08/03/19 13:31 DC 08/03/19 13:45 9 ML Lidocaine HCl (Glydo (Lidocaine) Jelly) 1 ramu 1X ONCE 07/08/19 14:30 07/08/19 14:31 DC 07/08/19 16:38 1 RAMU Lidocaine HCl (Xylocaine-Mpf 1% 2ml Vial) 2 ml PRN 1X PRN 07/25/19 07:00 07/26/19 06:59 DC Linezolid/Dextrose 300 ml @ 300 mls/hr Q12HR 07/29/19 11:00 08/09/19 08:10 DC 08/08/19 20:40 300 MLS/HR Lorazepam (Ativan Inj) 1 mg PRN Q4HRS PRN 07/07/19 09:00 08/05/19 09:19 DC 08/05/19 03:51 1 MG Magnesium Sulfate 50 ml @ 25 mls/hr PRN DAILY PRN 07/24/19 09:15 08/08/19 17:27 25 MLS/HR Meropenem 1 gm/ Sodium Chloride 100 ml @ 200 mls/hr Q8HRS 07/05/19 20:00 07/06/19 08:48 DC 07/06/19 05:45 200 MLS/HR Meropenem 500 mg/ Sodium Chloride 50 ml @ 100 mls/hr Q12H 07/27/19 10:00 08/11/19 09:18 100 MLS/HR Metoprolol Tartrate (Lopressor Vial) 5 mg Q6HRS 07/05/19 10:15 07/16/19 08:48 DC 07/14/19 00:12 5 MG Metronidazole 100 ml @ 100 mls/hr Q8HRS 08/02/19 10:00 08/09/19 08:10 DC 08/09/19 06:04 100 MLS/HR Micafungin Sodium 100 mg/Dextrose 100 ml @ 100 mls/hr Q24H 07/11/19 09:00 08/11/19 09:18 100 MLS/HR Midazolam HCl (Versed) 5 mg 1X ONCE 07/11/19 08:30 07/11/19 08:31 DC Midazolam HCl 100 mg/Sodium Chloride 100 ml @ 7 mls/hr CONT PRN 07/16/19 16:00 07/27/19 15:35 7 MLS/HR Midazolam HCl 50 mg/Sodium Chloride 50 ml @ 0 mls/hr CONT PRN 07/11/19 08:15 07/16/19 15:59 DC 07/14/19 22:39 7 MLS/HR Morphine Sulfate (Morphine Sulfate) 2 mg PRN Q2HR PRN 07/04/19 05:00 07/05/19 14:15 DC 07/05/19 12:26 2 MG Multi-Ingred Cream/Lotion/Oil/ Oint (Artificial Tears Eye Ointment) 1 ramu PRN Q1HR PRN 07/13/19 17:30 08/01/19 08:19 1 RAMU Norepinephrine Bitartrate 8 mg/ Dextrose 258 ml @ 17.299 mls/ hr CONT PRN 07/05/19 15:30 08/05/19 09:19 DC 08/02/19 12:48 20.9 MLS/HR Ondansetron HCl (Zofran) 4 mg PRN Q6HRS PRN 07/25/19 07:00 07/26/19 06:59 DC Pantoprazole Sodium (PROTONIX VIAL for IV PUSH) 40 mg DAILYAC 07/04/19 11:30 08/11/19 09:16 40 MG Piperacillin Sod/ Tazobactam Sod 4.5 gm/Sodium Chloride 100 ml @ 200 mls/hr 1X ONCE 07/04/19 06:00 07/04/19 06:29 DC 07/04/19 05:44 200 MLS/HR Potassium Chloride 15 meq/ Bicarbonate Dialysis Soln w/ out KCl 5,007.5 ml @ 1,000 mls/ hr Q5H1M 07/17/19 20:00 07/21/19 13:08 DC 07/20/19 18:14 1,000 MLS/HR Potassium Chloride 20 meq/ Bicarbonate Dialysis Soln w/ out KCl 5,010 ml @ 1,000 mls/hr Q5H1M 07/13/19 16:00 07/17/19 19:59 DC 07/17/19 14:54 1,000 MLS/HR Potassium Chloride/Water 100 ml @ 100 mls/hr 1X ONCE 08/06/19 14:45 08/06/19 15:44 DC 08/06/19 17:28 100 MLS/HR Potassium Phosphate 20 mmol/ Sodium Chloride 106.6667 ml @ 51.667 m... 1X ONCE 07/13/19 13:00 07/13/19 15:03 DC 07/13/19 12:51 51.667 MLS/HR Prochlorperazine Edisylate (Compazine) 5 mg PACU PRN PRN 07/25/19 07:00 07/26/19 06:59 DC Propofol 20 ml @ As Directed STK-MED ONCE 07/25/19 11:07 07/25/19 11:07 DC Ringer's Solution 1,000 ml @ 30 mls/hr Q24H 07/25/19 07:00 07/25/19 18:59 DC Sevoflurane (Ultane) 60 ml STK-MED ONCE 07/25/19 12:46 07/25/19 12:46 DC Sodium Bicarbonate 50 meq/Sodium Chloride 1,050 ml @ 75 mls/hr Q14H 07/06/19 07:30 07/11/19 10:28 DC 07/10/19 21:10 75 MLS/HR Sodium Chloride (Normal Saline Flush) 20 ml PRN Q5MIN PRN 08/02/19 15:00 Sodium Chloride 90 meq/Calcium Gluconate 10 meq/ Multivitamins 10 ml/Chromium/ Copper/Manganese/ Seleni/Zn 0.5 ml/ Total Parenteral Nutrition/Amino Acids/Dextrose/ Fat Emulsion Intravenous 1,512 ml @ 63 mls/hr TPN CONT 07/06/19 22:00 07/07/19 21:59 DC 07/06/19 22:06 63 MLS/HR Sodium Chloride 90 meq/Calcium Gluconate 10 meq/ Multivitamins 10 ml/Chromium/ Copper/Manganese/ Seleni/Zn 1 ml/ Total Parenteral Nutrition/Amino Acids/Dextrose/ Fat Emulsion Intravenous 55.005 ml @ 2.292 mls/hr TPN CONT 07/06/19 22:00 07/06/19 12:33 DC Sodium Chloride 90 meq/Magnesium Sulfate 10 meq/ Calcium Gluconate 20 meq/ Multivitamins 10 ml/Chromium/ Copper/Manganese/ Seleni/Zn 0.5 ml/ Total Parenteral Nutrition/Amino Acids/Dextrose/ Fat Emulsion Intravenous 1,512 ml @ 63 mls/hr TPN CONT 07/07/19 22:00 07/08/19 21:59 DC 07/07/19 22:25 63 MLS/HR Sodium Chloride 90 meq/Magnesium Sulfate 12 meq/ Calcium Gluconate 15 meq/ Multivitamins 10 ml/Chromium/ Copper/Manganese/ Seleni/Zn 0.5 ml/ Insulin Human Regular 25 unit/ Total Parenteral Nutrition/Amino Acids/Dextrose/ Fat Emulsion Intravenous 1,400 ml @ 58.333 mls/ hr TPN CONT 07/27/19 22:00 07/28/19 21:59 DC 07/27/19 21:41 58.333 MLS/HR Sodium Chloride 90 meq/Potassium Chloride 15 meq/ Magnesium Sulfate 12 meq/Calcium Gluconate 15 meq/ Multivitamins 10 ml/Chromium/ Copper/Manganese/ Seleni/Zn 0.5 ml/ Insulin Human Regular 25 unit/ Total Parenteral Nutrition/Amino Acids/Dextrose/ Fat Emulsion Intravenous 1,400 ml @ 58.333 mls/ hr TPN CONT 07/26/19 22:00 07/27/19 21:59 DC 07/26/19 22:13 58.333 MLS/HR Sodium Chloride 90 meq/Potassium Chloride 15 meq/ Potassium Phosphate 10 mmol/ Magnesium Sulfate 8 meq/Calcium Gluconate 15 meq/ Multivitamins 10 ml/Chromium/ Copper/Manganese/ Seleni/Zn 0.5 ml/ Insulin Human Regular 25 unit/ Total Parenteral Nutrition/Amino Acids/Dextrose/ Fat Emulsion Intravenous 1,400 ml @ 58.333 mls/ hr TPN CONT 07/24/19 22:00 07/25/19 21:59 DC 07/24/19 21:20 58.333 MLS/HR Sodium Chloride 90 meq/Potassium Chloride 15 meq/ Potassium Phosphate 10 mmol/ Magnesium Sulfate 10 meq/Calcium Gluconate 20 meq/ Multivitamins 10 ml/Chromium/ Copper/Manganese/ Seleni/Zn 0.5 ml/ Total Parenteral Nutrition/Amino Acids/Dextrose/ Fat Emulsion Intravenous 1,400 ml @ 58.333 mls/ hr TPN CONT 07/11/19 22:00 07/12/19 21:59 DC 07/11/19 21:42 58.333 MLS/HR Sodium Chloride 90 meq/Potassium Chloride 15 meq/ Potassium Phosphate 10 mmol/ Magnesium Sulfate 12 meq/Calcium Gluconate 15 meq/ Multivitamins 10 ml/Chromium/ Copper/Manganese/ Seleni/Zn 0.5 ml/ Insulin Human Regular 25 unit/ Total Parenteral Nutrition/Amino Acids/Dextrose/ Fat Emulsion Intravenous 1,400 ml @ 58.333 mls/ hr TPN CONT 07/25/19 22:00 07/26/19 21:59 DC 07/25/19 22:24 58.333 MLS/HR Sodium Chloride 90 meq/Potassium Chloride 15 meq/ Potassium Phosphate 15 mmol/ Magnesium Sulfate 10 meq/Calcium Gluconate 15 meq/ Multivitamins 10 ml/Chromium/ Copper/Manganese/ Seleni/Zn 0.5 ml/ Total Parenteral Nutrition/Amino Acids/Dextrose/ Fat Emulsion Intravenous 1,400 ml @ 58.333 mls/ hr TPN CONT 07/12/19 22:00 07/13/19 21:59 DC 07/12/19 22:17 58.333 MLS/HR Sodium Chloride 90 meq/Potassium Chloride 15 meq/ Potassium Phosphate 15 mmol/ Magnesium Sulfate 10 meq/Calcium Gluconate 20 meq/ Multivitamins 10 ml/Chromium/ Copper/Manganese/ Seleni/Zn 0.5 ml/ Total Parenteral Nutrition/Amino Acids/Dextrose/ Fat Emulsion Intravenous 1,200 ml @ 50 mls/hr TPN CONT 07/10/19 22:00 07/10/19 14:17 DC Sodium Chloride 90 meq/Potassium Chloride 15 meq/ Potassium Phosphate 18 mmol/ Magnesium Sulfate 8 meq/Calcium Gluconate 15 meq/ Multivitamins 10 ml/Chromium/ Copper/Manganese/ Seleni/Zn 0.5 ml/ Insulin Human Regular 10 unit/ Total Parenteral Nutrition/Amino Acids/Dextrose/ Fat Emulsion Intravenous 1,400 ml @ 58.333 mls/ hr TPN CONT 07/15/19 22:00 07/16/19 21:59 DC 07/15/19 21:43 58.333 MLS/HR Sodium Chloride 90 meq/Potassium Chloride 15 meq/ Potassium Phosphate 18 mmol/ Magnesium Sulfate 8 meq/Calcium Gluconate 15 meq/ Multivitamins 10 ml/Chromium/ Copper/Manganese/ Seleni/Zn 0.5 ml/ Insulin Human Regular 15 unit/ Total Parenteral Nutrition/Amino Acids/Dextrose/ Fat Emulsion Intravenous 1,400 ml @ 58.333 mls/ hr TPN CONT 07/18/19 22:00 07/19/19 21:59 DC 07/18/19 21:47 58.333 MLS/HR Sodium Chloride 90 meq/Potassium Chloride 15 meq/ Potassium Phosphate 18 mmol/ Magnesium Sulfate 8 meq/Calcium Gluconate 15 meq/ Multivitamins 10 ml/Chromium/ Copper/Manganese/ Seleni/Zn 0.5 ml/ Insulin Human Regular 20 unit/ Total Parenteral Nutrition/Amino Acids/Dextrose/ Fat Emulsion Intravenous 1,400 ml @ 58.333 mls/ hr TPN CONT 07/21/19 22:00 07/22/19 21:59 DC 07/21/19 22:45 58.333 MLS/HR Sodium Chloride 90 meq/Potassium Chloride 15 meq/ Potassium Phosphate 18 mmol/ Magnesium Sulfate 8 meq/Calcium Gluconate 15 meq/ Multivitamins 10 ml/Chromium/ Copper/Manganese/ Seleni/Zn 0.5 ml/ Total Parenteral Nutrition/Amino Acids/Dextrose/ Fat Emulsion Intravenous 1,400 ml @ 58.333 mls/ hr TPN CONT 07/14/19 22:00 07/15/19 21:59 DC 07/14/19 22:00 58.333 MLS/HR Sodium Chloride 90 meq/Potassium Phosphate 15 mmol/ Magnesium Sulfate 12 meq/Calcium Gluconate 15 meq/ Multivitamins 10 ml/Chromium/ Copper/Manganese/ Seleni/Zn 0.5 ml/ Insulin Human Regular 30 unit/ Total Parenteral Nutrition/Amino Acids/Dextrose/ Fat Emulsion Intravenous 1,400 ml @ 58.333 mls/ hr TPN CONT 07/29/19 22:00 07/30/19 21:59 DC 07/29/19 21:49 58.333 MLS/HR Sodium Chloride 90 meq/Potassium Phosphate 15 mmol/ Magnesium Sulfate 12 meq/Calcium Gluconate 15 meq/ Multivitamins 10 ml/Chromium/ Copper/Manganese/ Seleni/Zn 0.5 ml/ Insulin Human Regular 40 unit/ Total Parenteral Nutrition/Amino Acids/Dextrose/ Fat Emulsion Intravenous 1,400 ml @ 58.333 mls/ hr TPN CONT 07/30/19 22:00 07/31/19 21:59 DC 07/30/19 21:21 58.333 MLS/HR Sodium Chloride 90 meq/Potassium Phosphate 19 mmol/ Magnesium Sulfate 12 meq/Calcium Gluconate 15 meq/ Multivitamins 10 ml/Chromium/ Copper/Manganese/ Seleni/Zn 0.5 ml/ Insulin Human Regular 40 unit/ Total Parenteral Nutrition/Amino Acids/Dextrose/ Fat Emulsion Intravenous 1,400 ml @ 58.333 mls/ hr TPN CONT 07/31/19 22:00 08/01/19 21:59 DC 07/31/19 21:54 58.333 MLS/HR Sodium Chloride 90 meq/Potassium Phosphate 5 mmol/ Magnesium Sulfate 12 meq/Calcium Gluconate 15 meq/ Multivitamins 10 ml/Chromium/ Copper/Manganese/ Seleni/Zn 0.5 ml/ Insulin Human Regular 30 unit/ Total Parenteral Nutrition/Amino Acids/Dextrose/ Fat Emulsion Intravenous 1,400 ml @ 58.333 mls/ hr TPN CONT 07/28/19 22:00 07/29/19 21:59 DC 07/28/19 22:08 58.333 MLS/HR Sodium Chloride 100 meq/Potassium Chloride 40 meq/ Magnesium Sulfate 15 meq/Calcium Gluconate 15 meq/ Multivitamins 10 ml/Chromium/ Copper/Manganese/ Seleni/Zn 0.5 ml/ Insulin Human Regular 35 unit/ Total Parenteral Nutrition/Amino Acids/Dextrose/ Fat Emulsion Intravenous 1,400 ml @ 58.333 mls/ hr TPN CONT 08/07/19 22:00 08/08/19 21:59 DC 08/07/19 22:46 58.333 MLS/HR Sodium Chloride 100 meq/Potassium Chloride 40 meq/ Magnesium Sulfate 20 meq/Calcium Gluconate 15 meq/ Multivitamins 10 ml/Chromium/ Copper/Manganese/ Seleni/Zn 0.5 ml/ Insulin Human Regular 35 unit/ Total Parenteral Nutrition/Amino Acids/Dextrose/ Fat Emulsion Intravenous 1,400 ml @ 58.333 mls/ hr TPN CONT 08/10/19 22:00 08/11/19 21:59 08/10/19 22:27 58.333 MLS/HR Sodium Chloride 100 meq/Potassium Phosphate 10 mmol/ Magnesium Sulfate 12 meq/Calcium Gluconate 15 meq/ Multivitamins 10 ml/Chromium/ Copper/Manganese/ Seleni/Zn 0.5 ml/ Insulin Human Regular 35 unit/ Potassium Chloride 20 meq/ Total Parenteral Nutrition/Amino Acids/Dextrose/ Fat Emulsion Intravenous 1,400 ml @ 58.333 mls/ hr TPN CONT 08/04/19 22:00 08/05/19 21:59 DC 08/04/19 22:10 58.333 MLS/HR Sodium Chloride 100 meq/Potassium Phosphate 19 mmol/ Magnesium Sulfate 12 meq/Calcium Gluconate 15 meq/ Multivitamins 10 ml/Chromium/ Copper/Manganese/ Seleni/Zn 0.5 ml/ Insulin Human Regular 40 unit/ Potassium Chloride 20 meq/ Total Parenteral Nutrition/Amino Acids/Dextrose/ Fat Emulsion Intravenous 1,400 ml @ 58.333 mls/ hr TPN CONT 08/03/19 22:00 08/04/19 21:59 DC 08/03/19 21:20 58.333 MLS/HR Sodium Chloride 100 meq/Potassium Phosphate 5 mmol/ Magnesium Sulfate 12 meq/Calcium Gluconate 15 meq/ Multivitamins 10 ml/Chromium/ Copper/Manganese/ Seleni/Zn 0.5 ml/ Insulin Human Regular 35 unit/ Potassium Chloride 20 meq/ Total Parenteral Nutrition/Amino Acids/Dextrose/ Fat Emulsion Intravenous 1,400 ml @ 58.333 mls/ hr TPN CONT 08/05/19 22:00 08/06/19 21:59 DC 08/05/19 22:59 58.333 MLS/HR Succinylcholine Chloride (Anectine) 120 mg 1X ONCE 07/11/19 08:30 07/11/19 08:31 DC 07/11/19 08:34 120 MG Lab Laboratory Tests Test 08/10/19 12:19 08/10/19 18:19 08/11/19 00:14 08/11/19 06:20 Glucose (Fingerstick) 146 mg/dL (70-99) 146 mg/dL (70-99) 141 mg/dL (70-99) Sodium Level 144 mmol/L (136-145) Potassium Level 3.6 mmol/L (3.5-5.1) Chloride Level 107 mmol/L (98-107) Carbon Dioxide Level 26 mmol/L (21-32) Anion Gap 11 (6-14) Blood Urea Nitrogen 78 mg/dL (7-20) Creatinine 1.4 mg/dL (0.6-1.0) Estimated GFR (Cockcroft-Gault) 40.0 Glucose Level 146 mg/dL (70-99) Calcium Level 9.4 mg/dL (8.5-10.1) Phosphorus Level 3.8 mg/dL (2.6-4.7) Triglycerides Level 148 mg/dL (0-150) Test 08/11/19 06:23 08/11/19 06:35 Glucose (Fingerstick) 134 mg/dL (70-99) White Blood Count 15.6 x10^3/uL (4.0-11.0) Red Blood Count 3.19 x10^6/uL (3.50-5.40) Hemoglobin 9.4 g/dL (12.0-15.5) Hematocrit 28.6 % (36.0-47.0) Mean Corpuscular Volume 90 fL (79-100) Mean Corpuscular Hemoglobin 30 pg (25-35) Mean Corpuscular Hemoglobin Concent 33 g/dL (31-37) Red Cell Distribution Width 18.4 % (11.5-14.5) Platelet Count 343 x10^3/uL (140-400) Neutrophils (%) (Auto) 82 % (31-73) Lymphocytes (%) (Auto) 10 % (24-48) Monocytes (%) (Auto) 8 % (0-9) Eosinophils (%) (Auto) 0 % (0-3) Basophils (%) (Auto) 0 % (0-3) Neutrophils # (Auto) 12.8 x10^3/uL (1.8-7.7) Lymphocytes # (Auto) 1.5 x10^3/uL (1.0-4.8) Monocytes # (Auto) 1.3 x10^3/uL (0.0-1.1) Eosinophils # (Auto) 0.0 x10^3/uL (0.0-0.7) Basophils # (Auto) 0.0 x10^3/uL (0.0-0.2) Results All relevant outside records, renal labs, imaging studies, telemetry/EKG's were reviewed. VERENA KENT MD Aug 11, 2019 09:33
[2019-08-11] MEDS: HEPARIN for SUB-Q USE 5,000 UNIT/ML VIAL. SQ SCH ×2 (09:35→21:11)
--- NOTE | 2019-08-11 11:30 | PDOC ---
[facility] PROGRESS NOTE Chief Complaint Chief Complaint Respiratory failure requiring mechanical ventilation (on vent since 07/10) Tracheostomy bilateral pleural effusions/pulm edema Sepsis Severe Acute gallstone pancreatitis (not a surgical candidate at this time) with necrosis Acute kidney failure now requiring dialysis Salpingitis Gallstones (Calculus of gallbladder with acute cholecystitis without obstruction) HTN Leukocytosis Hypoxia Uterine fibroid Intractable pain Intractable nausea Covid 19 negative. Acute on chronic anemia EEG: No seizure activity. ESRD on HD Hyperglycemia, persistently in 200s History of Present Illness History of Present Illness 08-11-2019 Patient seen and examined in the ICU She remains mechanically ventilated AC/05/08 50/30% FiO2 Chart reviewed Discussed with RN She is critically ill 08-10-2019 Patient seen and examined in the ICU She has a tracheostomy /05/08 50/30% Chart reviewed Discussed with RN She remains extremely critically ill 08-09-2019 Patient seen in ICU room 116 she is currently on dialysis Tries to mumble is grabbing at her face with her left hand She is extremely weak cannot communicate well She is swollen Chart reviewed Discussed with RN Very critically ill 08-08-2019 patient seen and examined in the ICU She is on the vent via tracheostomy AC 50/35% Has IV TPN NG to suction Wearing mitts for patient safety Still seems encephalopathic Chart reviewed Discussed with RN She remains critically ill Ms Diaz is a 48yo F w/ PMHx HTN, prediabetes who presented to the emergency room with complaints of abdominal pain on 07/04/2019. Found with Lipase 84632, AST 401, ALT 249, Bilirubin 1.4. CT abdomen confirms pancreatic inflammation, peripancreatic fluid and inflammatory changes around the pancreas consistent with pancreatitis. Cholelithiasis and 1.4cm uterine fibroid as well as possible left salpingitis. Admitted for further care GI, General surgery, ID, Pulm consulted. 07/04: No urine output. Added dilaudid for pain, PICC placed per IR. Renal US negative.Seen bedside in ICU, given 2L additional NSS and albumin infusion. Still hypotensive, started on levophed. Repeat CT abdomen w/ necrosis. 07/05: O2 saturation 87% on nasal cannula oxygen. Dialysis catheter per nephrology 07/06: She is now on BiPAP appears more ill, now on dialysis 07/07: Seen on BiPAP. Her mother and another family member are present and seemed to be good support for her. Currently on dialysis. Appears critically ill 07/08: Overnight Tmax 101.7 , still on BiPAP FiO2 40%, still on low dose Levophed gtt, TPN initiated. On dialysis 07/24: Tracheostomy 07/30: S/p tracheostomy on vent spontaneous respirations with 5 of pressure support 35% FiO2, rectal tube and a Lind, off pressors 07/31: Off pressors. Seen on dialysis this morning. BUN 80. Tracking with her eyes. Still on vent via trach. 08/01: BUN 68, Cr 1.7. Temp 100.2F axillary. WBC 9.8. Still on vent via trach. Tracking reasonably well. In obvious discomfort. Removed PICC and CVC LIJ and replaced. Tips sent for culture. CT chest/abd/pelvis with bilateral pleural effusion and ascites. 08/02: Renal function stable. Still on vent. More interactive today. Miming wish for food. Plan discussed for thoracentesis/paracentesis with daughters today. They were under impression patient was doing worse due to a miscommunication which has been clarified over the phone. 4.3L removed. 08/03: BUN 88, Cr 1.8. Much more interactive today. Appears more comfortable today. 08/04: Febrile overnight 101.8F. More interactive, still on vent. Asking for ice by miming. 08/05: Afebrile overnight. TMax last 24 hours 100.6F. Hb 7.1. Interactive when awake. Afebrile. Hb 7. Not tolerating vent wean. Very interactive, on low dose precedex. Excellent UOP over the past 72 hours Plan: Cont vent weaning, dialysis Trach shield during day if ok with pulm. Would recommend ABG after 4 hours to r/o CO2 retention, however and still vent overnight Vitals/I&O Vitals/I&O: Vital Signs Date Time Temp Pulse Resp B/P (MAP) Pulse Ox O2 Delivery O2 Flow Rate FiO2 08/11/19 10:00 108 21 152/89 (110) 100 Ventilator 08/11/19 09:00 101.2 101.2 I & O 08/10/19 08/10/19 08/11/19 15:00 23:00 07:00 Intake Total 2315 ml 1650 ml 552 ml Output Total 1065 ml 820 ml 680 ml Balance 1250 ml 830 ml -128 ml Physical Exam Physical Exam: GENERAL: Sleeping awakens barely on Precedex HEENT: Pupils equal, + NGT, oral cavity dry NECK: Trach/vent LUNGS: rhonchi HEART: S1, S2, regular ABDOMEN: Distended, tender, hypoactive BS, : Lind (08/01) EXTREMITIES: Generalized edema, no cyanosis, SCDs bilaterally DERMATOLOGIC: Warm and dry. No generalized rash. CENTRAL NERVOUS SYSTEM: Extremely weak trying to talk but unable to understand HDC & LIJ (08/01) clean General: Other (opens eyes on exam) Heart: Regular rate, Normal S1, Other (increased rate) Lungs: Crackles, Other (dimished in BLL nc at perrl nose clear neck trach site ok no lad no thyromegaly) Abdomen: Other (distended, TTP on exam) Extremities: Other (ANASARCA) Skin: Other (mottling noted to extremities ) Labs Labs: Laboratory Tests Test 08/10/19 12:19 08/10/19 18:19 08/11/19 00:14 08/11/19 06:20 Glucose (Fingerstick) 146 mg/dL (70-99) 146 mg/dL (70-99) 141 mg/dL (70-99) Sodium Level 144 mmol/L (136-145) Potassium Level 3.6 mmol/L (3.5-5.1) Chloride Level 107 mmol/L (98-107) Carbon Dioxide Level 26 mmol/L (21-32) Anion Gap 11 (6-14) Blood Urea Nitrogen 78 mg/dL (7-20) Creatinine 1.4 mg/dL (0.6-1.0) Estimated GFR (Cockcroft-Gault) 40.0 Glucose Level 146 mg/dL (70-99) Calcium Level 9.4 mg/dL (8.5-10.1) Phosphorus Level 3.8 mg/dL (2.6-4.7) Triglycerides Level 148 mg/dL (0-150) Test 08/11/19 06:23 08/11/19 06:35 Glucose (Fingerstick) 134 mg/dL (70-99) White Blood Count 15.6 x10^3/uL (4.0-11.0) Red Blood Count 3.19 x10^6/uL (3.50-5.40) Hemoglobin 9.4 g/dL (12.0-15.5) Hematocrit 28.6 % (36.0-47.0) Mean Corpuscular Volume 90 fL (79-100) Mean Corpuscular Hemoglobin 30 pg (25-35) Mean Corpuscular Hemoglobin Concent 33 g/dL (31-37) Red Cell Distribution Width 18.4 % (11.5-14.5) Platelet Count 343 x10^3/uL (140-400) Neutrophils (%) (Auto) 82 % (31-73) Lymphocytes (%) (Auto) 10 % (24-48) Monocytes (%) (Auto) 8 % (0-9) Eosinophils (%) (Auto) 0 % (0-3) Basophils (%) (Auto) 0 % (0-3) Neutrophils # (Auto) 12.8 x10^3/uL (1.8-7.7) Lymphocytes # (Auto) 1.5 x10^3/uL (1.0-4.8) Monocytes # (Auto) 1.3 x10^3/uL (0.0-1.1) Eosinophils # (Auto) 0.0 x10^3/uL (0.0-0.7) Basophils # (Auto) 0.0 x10^3/uL (0.0-0.2) Assessment and Plan Assessmemt and Plan Problems Medical Problems: (1) Acute pancreatitis Status: Acute (2) Cholelithiasis Status: Acute Respiratory failure requiring intubation Status post tracheostomy Severe Acute gallstone pancreatitis (she is not a surgical candidate as she is too ill) Acute kidney failure now requiring dialysis Salpingo--itis Gallstones (Calculus of gallbladder with acute cholecystitis without obstruction) HTN Leukocytosis Hypoxia Uterine fibroid Hypoxia with respiratory failure Intractable pain Intractable nausea Plan ICU monitoring Tracheostomy care NG suctioning Vent management per pulm. pressure support as tolerated Dialysis per nephro Merrem (07/26) and Zyvox (07/28) and micafungin Follow cultures Trach care Nutritional support When necessary levo fed Neuro following No plans for sx at present as she is to ill still Discharge disposition pending (? Eventual LTAC) She is still critically ill Prognosis very guarded Total time 34 min Comment Review of Relevant I have reviewed the following items kolby (where applicable) has been applied. Medications: Current Medications Medications (Trade) Dose Ordered Sig/Yvon Route PRN Reason Start Time Stop Time Status Last Admin Dose Admin Sodium Chloride 100 meq/Potassium Chloride 40 meq/ Magnesium Sulfate 20 meq/Calcium Gluconate 15 meq/ Multivitamins 10 ml/Chromium/ Copper/Manganese/ Seleni/Zn 0.5 ml/ Insulin Human Regular 35 unit/ Total Parenteral Nutrition/Amino Acids/Dextrose/ Fat Emulsion Intravenous 1,400 ml @ 58.333 mls/ hr TPN CONT IV 08/10/19 22:00 08/11/19 21:59 08/10/19 22:27 Daptomycin 430 mg/ Sodium Chloride 50 ml @ 100 mls/hr Q24H IV 08/10/19 13:00 08/10/19 12:32 Hemodynamically unstable?: No Is patient in severe pain?: No Is NPO status required?: Yes BEBO KIRBY III DO Aug 11, 2019 11:30
[2019-08-11] MEDS: TPN PER PHARMACY MC PRN (12:18)
[2019-08-11] MEDS: ACETAMINOPHEN 650 MG SUPP.RECT. PR PRN (12:18)
[2019-08-11] MEDS: DAPTOmycin (GENERIC) IVPB 430 MG in IV NORMAL SALINE 50ML 50 ML IV SCH (12:25)
--- NOTE | 2019-08-11 12:34 | PDOC ---
PROGRESS NOTES Assessment Assessment Respiratory failure. Seizure. Metabolic encephalopathy. Fever 102.7 degree, recurrent fever noted. Metabolic acidosis. Diffuse pulmonary infiltrate. Pleural effusion. Pancreatitis, necrotizing. Gallstone. Leukocytosis. Lymphopenia. Electrolytes imbalances. Hyperglycemia. DM. HTN. HLD. Anemia. Abnormal CXR. Obesity. Covid-19 still suspected though 1st test negative. RECOMMENDATIONS/PLAN: Continue life support in CCU at the present time. Keppra if has further seizures. Treat medical diseases. OT/PT. EEG: No seizure activity. OBJECTIVE: 08/11/19: No seizures reported over night. T: 101.2 degree. Past Medical History Cardiovascular: HTN, Hyperlipidemia Endocrine: Diabetes Family History Unobtainable. Social HistoryU not obtainable Allergies Coded Allergies: Codeine (Verified Allergy, Intermediate, rash, 07/04/19) ROS Unobtainable. NEUROLOGICAL EXAMINATION: Awake from time to time. Able to follow some commands. Not oriented to time, place and person. PERRL. EOMI not examined. CN: no acute focal findings. Muscle tone: Decreased. Muscle strength: 3+ UE, 2+ LE. DTR: 1-2. Plantar reflex: Neutral response bilaterally Gait: not able to walk. Sensory exam: no response to stimuli.. Not able to access cerebellar signs. F-T-N test not performed. Patient examined in CCU. Objective Objective Vital Signs Date Time Temp Pulse Resp B/P (MAP) Pulse Ox O2 Delivery O2 Flow Rate FiO2 08/11/19 12:01 100 6.0 08/11/19 11:38 Ventilator 08/11/19 10:00 108 21 152/89 (110) 08/11/19 09:00 101.2 101.2 Intake and Output 08/11/19 07:00 Intake Total 4517 ml Output Total 2565 ml Balance 1952 ml Intake Oral 0 ml IV Total 2502 ml Blood Product IV Normal Saline Flush 2015 ml Output Urine Total 2565 ml Vitals Signs Vitals VS - Last 72 Hours, by Label Date Time Temp Pulse Resp B/P (MAP) Pulse Ox O2 Delivery O2 Flow Rate FiO2 08/11/19 12:01 100 6.0 08/11/19 11:38 100 Ventilator 08/11/19 10:00 108 21 152/89 (110) 100 Ventilator 08/11/19 09:44 98 Ventilator 08/11/19 09:00 101.2 100 21 170/90 (116) 100 Ventilator 101.2 08/11/19 08:00 84 22 123/66 (85) 98 Ventilator 08/11/19 08:00 Mechanical Ventilator 08/11/19 07:26 98 Ventilator 08/11/19 07:00 100 24 145/82 (103) 98 Ventilator 08/11/19 06:00 101.0 144 26 161/89 (113) 97 Ventilator 101.0 08/11/19 05:42 98 Ventilator 08/11/19 05:00 86 24 152/86 (108) 100 Ventilator 08/11/19 04:00 100.0 82 25 130/71 (90) 98 Ventilator 100.0 08/11/19 04:00 Mechanical Ventilator 08/11/19 03:38 98 Ventilator 08/11/19 03:00 84 23 114/63 (80) 97 Ventilator 08/11/19 02:01 25 99 Ventilator 08/11/19 02:00 89 24 158/87 (110) 98 Ventilator 08/11/19 01:00 100 22 137/88 (104) 100 Ventilator 08/11/19 00:23 98 Ventilator 08/11/19 00:00 100.2 82 22 110/59 (76) 98 Ventilator 100.2 08/11/19 00:00 Mechanical Ventilator 08/10/19 23:00 96 22 138/81 (100) 99 Ventilator 08/10/19 22:32 98 Ventilator 08/10/19 22:00 99.6 104 24 154/79 (104) 100 Ventilator 99.6 08/10/19 21:00 82 21 111/63 (79) 98 Ventilator 08/10/19 20:00 100.3 96 25 123/73 (90) 98 Ventilator 100.3 08/10/19 20:00 Mechanical Ventilator 08/10/19 19:55 98 Ventilator 08/10/19 19:00 105 22 154/81 (105) 98 Ventilator 08/10/19 18:00 102 24 133/66 (88) 99 Ventilator 08/10/19 17:58 99 Ventilator 08/10/19 17:00 127 27 173/102 (125) 100 Ventilator 08/10/19 16:00 101.5 90 27 120/62 (81) 98 Ventilator 101.5 08/10/19 16:00 Mechanical Ventilator 4/22/20 15:46 97 Ventilator 08/10/19 15:00 110 23 178/92 (120) 97 Ventilator 08/10/19 14:53 35 100 Ventilator 08/10/19 14:20 44 94 08/10/19 14:00 171 48 196/103 (134) 94 Ventilator 08/10/19 13:36 98 Ventilator 08/10/19 13:11 100.0 91 25 151/80 100.0 08/10/19 13:00 91 25 151/80 (103) 100 Ventilator 08/10/19 12:00 100.0 86 24 127/81 100.0 08/10/19 12:00 100.0 86 24 127/81 (96) 100 Ventilator 100.0 08/10/19 12:00 Mechanical Ventilator 08/10/19 11:38 98 Ventilator 08/10/19 11:37 100.9 98 35 149/92 100.9 08/10/19 11:27 100.9 103 23 126/57 100.9 08/10/19 11:00 97 23 160/80 (106) 100 Ventilator 08/10/19 10:38 100.2 109 35 180/91 100.2 08/10/19 10:15 100.2 108 35 152/88 100.2 08/10/19 10:00 100.3 108 32 153/73 100.3 08/10/19 10:00 100.3 108 32 153/73 (99) 100 Ventilator 100.3 08/10/19 09:45 100.6 102 23 166/77 100.6 08/10/19 09:36 100.6 106 31 156/67 100.6 08/10/19 09:00 106 31 156/67 (96) 100 Ventilator 08/10/19 08:08 100 Ventilator 08/10/19 08:00 Mechanical Ventilator 08/10/19 08:00 100.6 94 113/62 (79) 100 Ventilator 100.6 08/10/19 07:00 90 35 116/59 (78) 100 Ventilator Laboratory Laboratory Laboratory Tests Test 08/10/19 18:19 08/11/19 00:14 08/11/19 06:20 08/11/19 06:23 Glucose (Fingerstick) 146 mg/dL (70-99) 141 mg/dL (70-99) 134 mg/dL (70-99) Sodium Level 144 mmol/L (136-145) Potassium Level 3.6 mmol/L (3.5-5.1) Chloride Level 107 mmol/L (98-107) Carbon Dioxide Level 26 mmol/L (21-32) Anion Gap 11 (6-14) Blood Urea Nitrogen 78 mg/dL (7-20) Creatinine 1.4 mg/dL (0.6-1.0) Estimated GFR (Cockcroft-Gault) 40.0 Glucose Level 146 mg/dL (70-99) Calcium Level 9.4 mg/dL (8.5-10.1) Phosphorus Level 3.8 mg/dL (2.6-4.7) Triglycerides Level 148 mg/dL (0-150) Test 08/11/19 06:35 White Blood Count 15.6 x10^3/uL (4.0-11.0) Red Blood Count 3.19 x10^6/uL (3.50-5.40) Hemoglobin 9.4 g/dL (12.0-15.5) Hematocrit 28.6 % (36.0-47.0) Mean Corpuscular Volume 90 fL (79-100) Mean Corpuscular Hemoglobin 30 pg (25-35) Mean Corpuscular Hemoglobin Concent 33 g/dL (31-37) Red Cell Distribution Width 18.4 % (11.5-14.5) Platelet Count 343 x10^3/uL (140-400) Neutrophils (%) (Auto) 82 % (31-73) Lymphocytes (%) (Auto) 10 % (24-48) Monocytes (%) (Auto) 8 % (0-9) Eosinophils (%) (Auto) 0 % (0-3) Basophils (%) (Auto) 0 % (0-3) Neutrophils # (Auto) 12.8 x10^3/uL (1.8-7.7) Lymphocytes # (Auto) 1.5 x10^3/uL (1.0-4.8) Monocytes # (Auto) 1.3 x10^3/uL (0.0-1.1) Eosinophils # (Auto) 0.0 x10^3/uL (0.0-0.7) Basophils # (Auto) 0.0 x10^3/uL (0.0-0.2) Microbiology 08/03/19 Aerobic and Anaerobic Culture - Final, Complete 08/03/19 Anaerobic Culture Result 1 (ALEXANDRA) - Final, Complete 08/03/19 Aerobic Culture - Final, Complete 08/03/19 Aerobic Culture Result 1 (ALEXANDRA) - Final, Complete 08/03/19 Gram Stain - Final, Complete 08/03/19 Gram Stain Result 1 (ALEXANDRA) - Final, Complete 08/03/19 Gram Stain Result 2 (ALEXANDRA) - Final, Complete 08/02/19 Blood Culture - Final, Complete NO GROWTH AFTER 5 DAYS 07/31/19 Urine Culture - Final, Complete 07/31/19 Urine Culture Result 1 (ALEXANDRA) - Final, Complete Medication Medications Current Medications Daptomycin 430 mg/ Sodium Chloride 50 ml @ 100 mls/hr Q24H IV Last administered on 08/11/19at 12:25; Start 08/10/19 at 13:00 Daptomycin 430 mg/ Sodium Chloride 50 ml @ 100 mls/hr Q48H IV ; Start 08/11/19 at 09:00; Stop 08/10/19 at 11:55; Status DC Sodium Chloride 100 meq/Potassium Chloride 40 meq/ Magnesium Sulfate 20 meq/Calcium Gluconate 10 meq/ Multivitamins 10 ml/Chromium/ Copper/Manganese/ Seleni/Zn 0.5 ml/ Insulin Human Regular 35 unit/ Total Parenteral Nutrition/Amino Acids/Dextrose/ Fat Emulsion Intravenous 1,400 ml @ 58.333 mls/ hr TPN CONT IV ; Start 08/11/19 at 22:00; Stop 08/12/19 at 21:59 Sodium Chloride 100 meq/Potassium Chloride 40 meq/ Magnesium Sulfate 20 meq/Calcium Gluconate 15 meq/ Multivitamins 10 ml/Chromium/ Copper/Manganese/ Seleni/Zn 0.5 ml/ Insulin Human Regular 35 unit/ Total Parenteral Nutrition/Amino Acids/Dextrose/ Fat Emulsion Intravenous 1,400 ml @ 58.333 mls/ hr TPN CONT IV Last administered on 08/10/19at 22:27; Start 08/10/19 at 22:00; Stop 08/11/19 at 21:59 Comment Review of Relevant I have reviewed the following items kolby (where applicable) has been applied. ZANDER ZUÑIGA MD Aug 11, 2019 12:34
--- NOTE | 2019-08-11 13:52 | NUR ---
SS following up with discharge planning. SS reviewed pt chart and discussed with HCFS and pt's RN. Pt remains on vent, trach, TPN, and IV Daptomycin. Pt tentatively scheduled for surgery next week for pancreatic necrosectomy and cholecystectomy. HCFS reported that family is no longer cooperating but were able to get some financial information from pt's daughters. They reported that pt has several assets and is over income and will not qualify for Medicaid. They reported that they are closing there case. Pt remains self pay. SS will continue to follow for discharge planning.
[2019-08-11] MEDS: PROCHLORPERAZINE 10 MG/2 ML VIAL. IV PRN (14:11)
--- NOTE | 2019-08-11 16:44 | PDOC ---
PULMONARY PROGRESS NOTES Subjective Patient intubated on 07/10 , s/p trach 07/24, Patient responding to verbal stimuli Vitals Vital Signs Date Time Temp Pulse Resp B/P (MAP) Pulse Ox O2 Delivery O2 Flow Rate FiO2 08/11/19 16:00 100.1 80 26 116/56 (76) 98 C-pap trial 100.1 08/11/19 12:31 6.0 Comments ros unable to obtain on vent Lungs: Crackles, Other (dimished in BLL nc at perrl nose clear neck trach site ok no lad no thyromegaly) Cardiovascular: S1, S2 Abdomen: Soft, Non-tender, Other (distended) Extremities: Other (+3 generalized edema ) Skin: Warm, Dry Labs Laboratory Tests Test 08/09/19 23:33 08/10/19 05:15 08/10/19 05:30 08/10/19 05:59 Glucose (Fingerstick) 145 mg/dL (70-99) 135 mg/dL (70-99) Magnesium Level 2.1 mg/dL (1.8-2.4) White Blood Count 11.9 x10^3/uL (4.0-11.0) Red Blood Count 2.22 x10^6/uL (3.50-5.40) Hemoglobin 6.7 g/dL (12.0-15.5) Hematocrit 20.6 % (36.0-47.0) Mean Corpuscular Volume 93 fL (79-100) Mean Corpuscular Hemoglobin 30 pg (25-35) Mean Corpuscular Hemoglobin Concent 32 g/dL (31-37) Red Cell Distribution Width 18.8 % (11.5-14.5) Platelet Count 394 x10^3/uL (140-400) Neutrophils (%) (Auto) 82 % (31-73) Lymphocytes (%) (Auto) 10 % (24-48) Monocytes (%) (Auto) 7 % (0-9) Eosinophils (%) (Auto) 1 % (0-3) Basophils (%) (Auto) 0 % (0-3) Neutrophils # (Auto) 9.7 x10^3/uL (1.8-7.7) Lymphocytes # (Auto) 1.2 x10^3/uL (1.0-4.8) Monocytes # (Auto) 0.9 x10^3/uL (0.0-1.1) Eosinophils # (Auto) 0.1 x10^3/uL (0.0-0.7) Basophils # (Auto) 0.0 x10^3/uL (0.0-0.2) Sodium Level 141 mmol/L (136-145) Potassium Level 3.5 mmol/L (3.5-5.1) Chloride Level 104 mmol/L (98-107) Carbon Dioxide Level 27 mmol/L (21-32) Anion Gap 10 (6-14) Blood Urea Nitrogen 67 mg/dL (7-20) Creatinine 1.4 mg/dL (0.6-1.0) Estimated GFR (Cockcroft-Gault) 40.0 Glucose Level 143 mg/dL (70-99) Calcium Level 8.8 mg/dL (8.5-10.1) Phosphorus Level 3.1 mg/dL (2.6-4.7) Albumin 2.7 g/dL (3.4-5.0) Test 08/10/19 12:19 08/10/19 18:19 08/11/19 00:14 08/11/19 06:20 Glucose (Fingerstick) 146 mg/dL (70-99) 146 mg/dL (70-99) 141 mg/dL (70-99) Sodium Level 144 mmol/L (136-145) Potassium Level 3.6 mmol/L (3.5-5.1) Chloride Level 107 mmol/L (98-107) Carbon Dioxide Level 26 mmol/L (21-32) Anion Gap 11 (6-14) Blood Urea Nitrogen 78 mg/dL (7-20) Creatinine 1.4 mg/dL (0.6-1.0) Estimated GFR (Cockcroft-Gault) 40.0 Glucose Level 146 mg/dL (70-99) Calcium Level 9.4 mg/dL (8.5-10.1) Phosphorus Level 3.8 mg/dL (2.6-4.7) Triglycerides Level 148 mg/dL (0-150) Test 08/11/19 06:23 08/11/19 06:35 08/11/19 12:21 Glucose (Fingerstick) 134 mg/dL (70-99) 146 mg/dL (70-99) White Blood Count 15.6 x10^3/uL (4.0-11.0) Red Blood Count 3.19 x10^6/uL (3.50-5.40) Hemoglobin 9.4 g/dL (12.0-15.5) Hematocrit 28.6 % (36.0-47.0) Mean Corpuscular Volume 90 fL (79-100) Mean Corpuscular Hemoglobin 30 pg (25-35) Mean Corpuscular Hemoglobin Concent 33 g/dL (31-37) Red Cell Distribution Width 18.4 % (11.5-14.5) Platelet Count 343 x10^3/uL (140-400) Neutrophils (%) (Auto) 82 % (31-73) Lymphocytes (%) (Auto) 10 % (24-48) Monocytes (%) (Auto) 8 % (0-9) Eosinophils (%) (Auto) 0 % (0-3) Basophils (%) (Auto) 0 % (0-3) Neutrophils # (Auto) 12.8 x10^3/uL (1.8-7.7) Lymphocytes # (Auto) 1.5 x10^3/uL (1.0-4.8) Monocytes # (Auto) 1.3 x10^3/uL (0.0-1.1) Eosinophils # (Auto) 0.0 x10^3/uL (0.0-0.7) Basophils # (Auto) 0.0 x10^3/uL (0.0-0.2) Laboratory Tests Test 08/10/19 18:19 08/11/19 00:14 08/11/19 06:20 08/11/19 06:23 Glucose (Fingerstick) 146 mg/dL (70-99) 141 mg/dL (70-99) 134 mg/dL (70-99) Sodium Level 144 mmol/L (136-145) Potassium Level 3.6 mmol/L (3.5-5.1) Chloride Level 107 mmol/L (98-107) Carbon Dioxide Level 26 mmol/L (21-32) Anion Gap 11 (6-14) Blood Urea Nitrogen 78 mg/dL (7-20) Creatinine 1.4 mg/dL (0.6-1.0) Estimated GFR (Cockcroft-Gault) 40.0 Glucose Level 146 mg/dL (70-99) Calcium Level 9.4 mg/dL (8.5-10.1) Phosphorus Level 3.8 mg/dL (2.6-4.7) Triglycerides Level 148 mg/dL (0-150) Test 08/11/19 06:35 08/11/19 12:21 White Blood Count 15.6 x10^3/uL (4.0-11.0) Red Blood Count 3.19 x10^6/uL (3.50-5.40) Hemoglobin 9.4 g/dL (12.0-15.5) Hematocrit 28.6 % (36.0-47.0) Mean Corpuscular Volume 90 fL (79-100) Mean Corpuscular Hemoglobin 30 pg (25-35) Mean Corpuscular Hemoglobin Concent 33 g/dL (31-37) Red Cell Distribution Width 18.4 % (11.5-14.5) Platelet Count 343 x10^3/uL (140-400) Neutrophils (%) (Auto) 82 % (31-73) Lymphocytes (%) (Auto) 10 % (24-48) Monocytes (%) (Auto) 8 % (0-9) Eosinophils (%) (Auto) 0 % (0-3) Basophils (%) (Auto) 0 % (0-3) Neutrophils # (Auto) 12.8 x10^3/uL (1.8-7.7) Lymphocytes # (Auto) 1.5 x10^3/uL (1.0-4.8) Monocytes # (Auto) 1.3 x10^3/uL (0.0-1.1) Eosinophils # (Auto) 0.0 x10^3/uL (0.0-0.7) Basophils # (Auto) 0.0 x10^3/uL (0.0-0.2) Glucose (Fingerstick) 146 mg/dL (70-99) Medications Active Scripts Medications Dose Route/Sig Max Daily Dose Days Date Category Bisoprolol Fumarate 5 Mg Tablet 10 Mg PO DAILY 07/04/19 Reported Impression . IMPRESSION: 1. Acute hypoxemic respiratory failure secondary to ARDS status post trach, 2. Gallstone pancreatitis 3. Severe metabolic acidosis.stable 4. Acute kidney injury-stable, ON HD-- continue to improve 5. Acute gallstone pancreatitis. 6. Hypoalbuminemia. 7. Moderate persistent effusions 8. Fever-persist. Per ID, per surgery 9. Chronic anemia 10. Covid 19 testing negative 11. Moderate to large ascites-S/P paracentisis S/P paracentisis with 4 liters removed on 08/03/19 Plan . Patient still febrile, will continue same, apparently she may undergo surgery next week Pressure support trials as tolerated PT hep sq and protonix for prophylaxis Follow surgery recs Follow ID rec, abx per id Follow nephrology recs Nutritional support per surgery continue TPN for nutrition DVT/GI PPX d/w RN/RT HARMEET BEE MD Aug 11, 2019 16:43
[2019-08-11] MEDS ORDERED: AMINO ACID IV SCH ×10 (22:00)
[2019-08-11] MEDS ORDERED: [UNRECOGNIZED DRUG - OTHER] IV SCH ×10 (22:00)
[2019-08-11] MEDS ORDERED: TOTAL PARENTERAL NUTRITION IV SCH ×10 (22:00)
[2019-08-11] MEDS ORDERED: DEXTROSE 70% IV SCH ×10 (22:00)
[2019-08-12] VITALS (22 sets, daily range): BP systolic 98–184; BP diastolic 50–142
[2019-08-12] MEDS: DEXMEDETOMIDINE 400 MCG in IV NORMAL SALINE 100ML 96 ML IV PRN ×8 (00:04→22:45)
[2019-08-12] MEDS: fentaNYL PF VIAL 100 MCG/2 ML VIAL IVP PRN ×2 (03:20→13:35)
[2019-08-12] MEDS: ONDANSETRON PF 4 MG/2 ML VIAL. IV PRN ×2 (05:28→11:01)
[2019-08-12] MEDS: INSULIN LISPRO 300 UNITS/3 ML VIAL. SQ SCH ×3 (06:25→13:19)
[2019-08-12 07:01] LABS: CALCIUM 8.9 mg/dL (8.5-10.1); CREATININE 1.3 mg/dL (0.6-1.0); GFR 43.5; POTASSIUM 3.4 mmol/L (3.5-5.1)
[2019-08-12 07:55] LABS: BASO % 0 % (0-3); EOS % 0 % (0-3); HEMOGLOBIN 8.2 g/dL (12.0-15.5); LYMPH # 0.9 x10^3/uL (1.0-4.8); LYMPH % 8 % (24-48); MEAN CORPUSCULAR HEMOGLOBIN 30 pg (25-35); MEAN CORPUSCULAR HGB CONC 33 g/dL (31-37); MEAN CORPUSCULAR VOLUME 91 fL (79-100); MONO # 0.9 x10^3/uL (0.0-1.1); MONO % 8 % (0-9); NEUT # 9.5 x10^3/uL (1.8-7.7); NEUT % 83 % (31-73); PLATELET COUNT 287 x10^3/uL (140-400); RED BLOOD COUNT 2.75 x10^6/uL (3.50-5.40); RED CELL DISTRIBUTION WIDTH 18.6 % (11.5-14.5); WHITE BLOOD COUNT 11.5 x10^3/uL (4.0-11.0)
--- NOTE | 2019-08-12 08:09 | PDOC ---
Infectious Disease Note Subjective Subjective Not feeling well, abd pain present Remains on vent via trach, TPN cont to be febrile ROS ROS no n/v/d/ Vital Sign Vital Signs Vital Signs Date Time Temp Pulse Resp B/P (MAP) Pulse Ox O2 Delivery O2 Flow Rate FiO2 08/12/19 07:28 100 Ventilator 08/12/19 06:00 98.0 106 141/77 (98) 98.0 08/12/19 03:20 23 6.0 Physical Exam PHYSICAL EXAM GENERAL: Sleeping awakens barely on Precedex HEENT: Pupils equal, + NGT, oral cavity dry NECK: Trach/vent LUNGS: rhonchi HEART: S1, S2, regular ABDOMEN: Distended, tender, hypoactive BS, : Lind (08/01) EXTREMITIES: Generalized edema, no cyanosis, SCDs bilaterally DERMATOLOGIC: Warm and dry. No generalized rash. CENTRAL NERVOUS SYSTEM: Extremely weak trying to talk but unable to understand HDC & LIJ (08/01) clean Labs Lab Laboratory Tests Test 08/11/19 12:21 08/11/19 17:25 08/12/19 00:11 08/12/19 06:20 Glucose (Fingerstick) 146 mg/dL (70-99) 130 mg/dL (70-99) 137 mg/dL (70-99) White Blood Count 11.5 x10^3/uL (4.0-11.0) Red Blood Count 2.75 x10^6/uL (3.50-5.40) Hemoglobin 8.2 g/dL (12.0-15.5) Hematocrit 25.0 % (36.0-47.0) Mean Corpuscular Volume 91 fL (79-100) Mean Corpuscular Hemoglobin 30 pg (25-35) Mean Corpuscular Hemoglobin Concent 33 g/dL (31-37) Red Cell Distribution Width 18.6 % (11.5-14.5) Platelet Count 287 x10^3/uL (140-400) Neutrophils (%) (Auto) 83 % (31-73) Lymphocytes (%) (Auto) 8 % (24-48) Monocytes (%) (Auto) 8 % (0-9) Eosinophils (%) (Auto) 0 % (0-3) Basophils (%) (Auto) 0 % (0-3) Neutrophils # (Auto) 9.5 x10^3/uL (1.8-7.7) Lymphocytes # (Auto) 0.9 x10^3/uL (1.0-4.8) Monocytes # (Auto) 0.9 x10^3/uL (0.0-1.1) Eosinophils # (Auto) 0.0 x10^3/uL (0.0-0.7) Basophils # (Auto) 0.0 x10^3/uL (0.0-0.2) Sodium Level 151 mmol/L (136-145) Potassium Level 3.4 mmol/L (3.5-5.1) Chloride Level 115 mmol/L (98-107) Carbon Dioxide Level 24 mmol/L (21-32) Anion Gap 12 (6-14) Blood Urea Nitrogen 83 mg/dL (7-20) Creatinine 1.3 mg/dL (0.6-1.0) Estimated GFR (Cockcroft-Gault) 43.5 Glucose Level 142 mg/dL (70-99) Calcium Level 8.9 mg/dL (8.5-10.1) Test 08/12/19 06:36 Glucose (Fingerstick) 121 mg/dL (70-99) Micro BC neg Abd culture neg, cell count not done Objective Assessment Leukocytosis 07/28 -improved Fever - New left IJ/Lind 08/01. PICC removed 08/01 -? pancreatitis. blood cults 07/28 neg. Urine - neg, Ascites s/p paracentesis 08/02 - 4300 ml. cultures neg to date Severe acute gallstone pancreatitis with necrosis -CT 08/01 necrotizing pancreatitis with fluid and phlegmon at the pancreas Hypotension off levaphed Joseph Pleural effusions JUANA requiring HD - s/p RIJ temporary dialysis catheter replacement, 07/20 Vent dependent respiratory failure -s/p Trach placement -lung opacities, COVID-19 neg Anasarca - worse Anemia - S/p PRBC 07/13 Hypocalcemia Prediabetes HTN Diarrhea, C. diff neg 07/10 Anemia - S/p PRBCs Plan Plan of Care cont merrem (07/26) and ,micafungin, and dapto Gen surgery following Maintain aspiration precautions Anemia deferred to primary CBC in am Critically ill zyvox changed to dapto , to rule out serotonin sy causing fever, I think sec to cont fever, and broad coverage, need to consider pancreatic necrosectomy d/w surgery and GI repeat ct noted surgery planned for Thursday d/w dr Tovar D/w nursing KIMMY JONES MD Aug 12, 2019 08:09
[2019-08-12] MEDS: PROCHLORPERAZINE 10 MG/2 ML VIAL. IV PRN (08:42)
[2019-08-12] MEDS: MICAFUNGIN 100 MG in IV DEXTROSE 5% 100ML 100 ML IV SCH (08:42)
[2019-08-12] MEDS: PANTOPRAZOLE IV PUSH 40 MG VIAL. IVP SCH (08:42)
[2019-08-12] MEDS: MEROPENEM 500 MG in IV NORMAL SALINE 50ML 50 ML IV SCH ×2 (08:43→22:45)
[2019-08-12] MEDS: HEPARIN for SUB-Q USE 5,000 UNIT/ML VIAL. SQ SCH ×2 (08:46→22:37)
--- NOTE | 2019-08-12 09:13 | PDOC ---
SUBJECTIVE ROS stable , sitting up , PT with pt OBJECTIVE Vital Signs Vital Signs Date Time Temp Pulse Resp B/P (MAP) Pulse Ox O2 Delivery O2 Flow Rate FiO2 08/12/19 07:28 100 Ventilator 08/12/19 06:00 98.0 106 141/77 (98) 98.0 08/12/19 03:20 23 6.0 I & 0 Intake and Output 08/12/19 07:00 Intake Total 2067 ml Output Total 2950 ml Balance -883 ml Intake Oral 0 ml IV Total 1163 ml Blood Product IV Normal Saline Flush 904 ml Output Urine Total 2825 ml Gastric Drainage Total 125 ml PHYSICAL EXAM Physical Exam GENERAL: awake, alert HEENT: + NGT, NECK: Trach/vent LUNGS: rhonchi HEART: S1, S2, regular ABDOMEN: Distended, tender, hypoactive BS, : Lind (08/01) EXTREMITIES: Generalized edema, no cyanosis, DERMATOLOGIC: No generalized rash. 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 Extensive retroperitoneal fluid collections slightly larger in size,Moderate to large volume of abdominal and pelvic ascites is again identified. Mild generalized increase in fatty inflammation or anasarca. Plan for surgery on Thursday Cholelithiasis with possible cholecystitis. Moderate pleural effusions, may be slightly improved. Infiltrate/atelectasis in both lung bases. Ascites - post paracentesis on 08/02- 4300 cc of thin, light brown fluid was removed Acute hypoxic resp failure ,bilateral pleural effusion Trach in place , On Vent HTN COVID-19 neg, 07/13 COMMENT/RELEVANT DATA Meds Current Medications Medications (Trade) Dose Ordered Sig/Yvon Start Time Stop Time Status Last Admin Dose Admin Acetaminophen (Tylenol Supp) 650 mg PRN Q6HRS PRN 07/12/19 10:30 08/11/19 12:18 650 MG Acetaminophen (Tylenol) 650 mg PRN Q6HRS PRN 07/09/19 03:36 08/04/19 19:56 650 MG Albumin Human 200 ml @ 200 mls/hr 1X PRN PRN 08/09/19 08:00 08/09/19 13:59 DC 08/09/19 08:40 200 MLS/HR Albuterol Sulfate (Ventolin Neb Soln) 2.5 mg 1X ONCE 07/05/19 22:30 07/05/19 22:31 DC 07/06/19 00:56 2.5 MG Alteplase, Recombinant (Cathflo For Central Catheter Clearance) 1 mg 1X ONCE 07/19/19 22:00 07/19/19 22:01 DC 07/19/19 22:05 1 MG Amino Acids/ Glycerin/ Electrolytes 1,000 ml @ 75 mls/hr [id number] 08/08/19 21:15 UNV Artificial Tears (Artificial Tears) 1 drop PRN Q1HR PRN 07/11/19 08:15 Atenolol (Tenormin) 100 mg DAILY 07/05/19 09:00 07/04/19 20:08 DC Atropine Sulfate (ATROPINE 0.5mg SYRINGE) 0.5 mg PRN Q5MIN PRN 07/21/19 08:15 Benzocaine (Hurricaine One) 1 spray 1X ONCE 07/08/19 14:30 07/08/19 14:31 DC 07/08/19 16:38 1 SPRAY Bupivacaine HCl/ Epinephrine Bitart (Sensorcain-Epi 0.5%-1:992208 Mpf) 30 ml STK-MED ONCE 07/25/19 11:00 07/25/19 11:01 DC 07/25/19 11:44 1 ML Calcium Carbonate/ Glycine (Tums) 500 mg PRN [id number] PRN 07/06/19 17:45 Calcium Chloride 1000 mg/Sodium Chloride 110 ml @ 220 mls/hr 1X ONCE 07/05/19 22:30 07/05/19 22:59 DC 07/05/19 22:11 220 MLS/HR Calcium Chloride 3000 mg/Sodium Chloride 1,030 ml @ 50 mls/hr [id number] 07/07/19 08:00 07/09/19 15:23 DC 07/09/19 02:17 50 MLS/HR Calcium Gluconate (Calcium Gluconate) 2,000 mg 1X ONCE 07/07/19 02:15 07/07/19 02:16 DC 07/07/19 02:19 2,000 MG Calcium Gluconate 1000 mg/Sodium Chloride 110 ml @ 220 mls/hr 1X ONCE 07/06/19 03:30 07/06/19 03:59 DC 07/06/19 03:21 220 MLS/HR Calcium Gluconate 2000 mg/Sodium Chloride 120 ml @ 220 mls/hr 1X ONCE 07/06/19 07:30 07/06/19 08:02 DC 07/06/19 09:05 220 MLS/HR Cefepime HCl (Maxipime) 2 gm Q12HR 07/13/19 09:00 07/27/19 09:58 DC 07/26/19 20:56 2 GM Cellulose (Surgicel Fibrillar 1x2) 1 each STK-MED ONCE 07/25/19 11:00 07/25/19 11:01 DC Cellulose (Surgicel Hemostat 4x8) 1 each STK-MED ONCE 07/25/19 11:55 07/25/19 11:56 DC 07/25/19 11:44 1 EACH Daptomycin 430 mg/ Sodium Chloride 50 ml @ 100 mls/hr Q24H 08/10/19 13:00 08/11/19 12:25 100 MLS/HR Daptomycin 500 mg/ Sodium Chloride 50 ml @ 100 mls/hr Q48H 07/13/19 08:30 07/29/19 10:07 DC 07/29/19 09:57 100 MLS/HR Dexmedetomidine HCl 400 mcg/ Sodium Chloride 100 ml @ 0 mls/hr CONT PRN 07/21/19 08:15 08/12/19 05:49 38 MLS/HR Dextrose (Dextrose 50%-Water Syringe) 12.5 gm PRN Q15MIN PRN 07/04/19 09:30 Digoxin (Lanoxin) 125 mcg 1X ONCE 07/07/19 18:00 07/07/19 18:01 DC 07/07/19 17:10 125 MCG Diphenhydramine HCl (Benadryl) 25 mg 1X PRN PRN 08/01/19 09:45 08/02/19 09:44 DC Enoxaparin Sodium (Lovenox 100mg Syringe) 100 mg Q12HR 08/09/19 21:00 UNV Etomidate (Amidate) 8 mg 1X ONCE 07/11/19 08:30 07/11/19 08:31 DC 07/11/19 08:33 8 MG Fentanyl Citrate (Fentanyl 2ml Vial) 25 mcg PRN Q2HR PRN 08/08/19 21:00 Furosemide (Lasix) 40 mg 1X ONCE 08/01/19 14:30 08/01/19 14:31 DC 08/01/19 14:39 40 MG Heparin Sodium (Porcine) (Hep Lock Adult) 500 unit STK-MED ONCE 07/26/19 09:29 07/26/19 09:30 DC Heparin Sodium (Porcine) (Heparin Sodium) 5,000 unit Q12HR 07/22/19 21:00 08/12/19 08:46 5,000 UNIT Hydromorphone HCl (Dilaudid) 1 mg PRN Q3HRS PRN 07/05/19 12:00 07/19/19 00:25 DC 07/11/19 05:13 1 MG Info (CONTRAST GIVEN -- Rx MONITORING) 1 each PRN DAILY PRN 07/18/19 11:45 07/20/19 11:44 DC Info (Icu Electrolyte Protocol) 1 ea CONT PRN PRN 07/17/19 13:15 Info (PHARMACY MONITORING -- do not chart) 1 each PRN DAILY PRN 08/09/19 08:00 UNV Info (Tpn Per Pharmacy) 1 each PRN DAILY PRN 07/06/19 12:30 UNV Insulin Human Lispro (HumaLOG) 0-9 UNITS Q6HRS 07/04/19 09:30 08/09/19 00:06 4 UNITS Insulin Human Regular (HumuLIN R VIAL) 5 unit 1X ONCE 07/05/19 22:30 07/05/19 22:31 DC 07/05/19 22:14 5 UNIT Iohexol (Omnipaque 240 Mg/ml) 30 ml 1X ONCE 07/18/19 11:30 07/18/19 11:33 DC 07/18/19 11:30 30 ML Iohexol (Omnipaque 300 Mg/ml) 60 ml 1X ONCE 07/05/19 17:00 07/05/19 17:01 DC 07/05/19 17:20 60 ML Iohexol (Omnipaque 350 Mg/ml) 90 ml 1X ONCE 07/04/19 03:30 07/04/19 03:31 DC 07/04/19 03:25 90 ML Ketorolac Tromethamine (Toradol 30mg Vial) 30 mg 1X ONCE 07/04/19 03:00 07/04/19 03:01 DC 07/04/19 02:54 30 MG Lidocaine HCl (Buffered Lidocaine 1%) 6 ml 1X ONCE 08/03/19 13:30 08/03/19 13:31 DC 08/03/19 13:45 9 ML Lidocaine HCl (Glydo (Lidocaine) Jelly) 1 ramu 1X ONCE 07/08/19 14:30 07/08/19 14:31 DC 07/08/19 16:38 1 RAMU Lidocaine HCl (Xylocaine-Mpf 1% 2ml Vial) 2 ml PRN 1X PRN 07/25/19 07:00 07/26/19 06:59 DC Linezolid/Dextrose 300 ml @ 300 mls/hr Q12HR 07/29/19 11:00 08/09/19 08:10 DC 08/08/19 20:40 300 MLS/HR Lorazepam (Ativan Inj) 1 mg PRN Q4HRS PRN 07/07/19 09:00 08/05/19 09:19 DC 08/05/19 03:51 1 MG Magnesium Sulfate 50 ml @ 25 mls/hr PRN DAILY PRN 07/24/19 09:15 08/08/19 17:27 25 MLS/HR Meropenem 1 gm/ Sodium Chloride 100 ml @ 200 mls/hr Q8HRS 07/05/19 20:00 07/06/19 08:48 DC 07/06/19 05:45 200 MLS/HR Meropenem 500 mg/ Sodium Chloride 50 ml @ 100 mls/hr Q12H 07/27/19 10:00 08/12/19 08:43 100 MLS/HR Metoprolol Tartrate (Lopressor Vial) 5 mg Q6HRS 07/05/19 10:15 07/16/19 08:48 DC 07/14/19 00:12 5 MG Metronidazole 100 ml @ 100 mls/hr Q8HRS 08/02/19 10:00 08/09/19 08:10 DC 08/09/19 06:04 100 MLS/HR Micafungin Sodium 100 mg/Dextrose 100 ml @ 100 mls/hr Q24H 07/11/19 09:00 08/12/19 08:42 100 MLS/HR Midazolam HCl (Versed) 5 mg 1X ONCE 07/11/19 08:30 07/11/19 08:31 DC Midazolam HCl 100 mg/Sodium Chloride 100 ml @ 7 mls/hr CONT PRN 07/16/19 16:00 07/27/19 15:35 7 MLS/HR Midazolam HCl 50 mg/Sodium Chloride 50 ml @ 0 mls/hr CONT PRN 07/11/19 08:15 07/16/19 15:59 DC 07/14/19 22:39 7 MLS/HR Morphine Sulfate (Morphine Sulfate) 2 mg PRN Q2HR PRN 07/04/19 05:00 07/05/19 14:15 DC 07/05/19 12:26 2 MG Multi-Ingred Cream/Lotion/Oil/ Oint (Artificial Tears Eye Ointment) 1 ramu PRN Q1HR PRN 07/13/19 17:30 08/01/19 08:19 1 RAMU Norepinephrine Bitartrate 8 mg/ Dextrose 258 ml @ 17.299 mls/ hr CONT PRN 07/05/19 15:30 08/05/19 09:19 DC 08/02/19 12:48 20.9 MLS/HR Ondansetron HCl (Zofran) 4 mg PRN Q6HRS PRN 07/25/19 07:00 07/26/19 06:59 DC Pantoprazole Sodium (PROTONIX VIAL for IV PUSH) 40 mg DAILYAC 07/04/19 11:30 08/12/19 08:42 40 MG Piperacillin Sod/ Tazobactam Sod 4.5 gm/Sodium Chloride 100 ml @ 200 mls/hr 1X ONCE 07/04/19 06:00 07/04/19 06:29 DC 07/04/19 05:44 200 MLS/HR Potassium Chloride 15 meq/ Bicarbonate Dialysis Soln w/ out KCl 5,007.5 ml @ 1,000 mls/ hr Q5H1M 07/17/19 20:00 07/21/19 13:08 DC 07/20/19 18:14 1,000 MLS/HR Potassium Chloride 20 meq/ Bicarbonate Dialysis Soln w/ out KCl 5,010 ml @ 1,000 mls/hr Q5H1M 07/13/19 16:00 07/17/19 19:59 DC 07/17/19 14:54 1,000 MLS/HR Potassium Chloride/Water 100 ml @ 100 mls/hr 1X ONCE 08/06/19 14:45 08/06/19 15:44 DC 08/06/19 17:28 100 MLS/HR Potassium Phosphate 20 mmol/ Sodium Chloride 106.6667 ml @ 51.667 m... 1X ONCE 07/13/19 13:00 07/13/19 15:03 DC 07/13/19 12:51 51.667 MLS/HR Prochlorperazine Edisylate (Compazine) 5 mg PACU PRN PRN 07/25/19 07:00 07/26/19 06:59 DC Propofol 20 ml @ As Directed STK-MED ONCE 07/25/19 11:07 07/25/19 11:07 DC Ringer's Solution 1,000 ml @ 30 mls/hr Q24H 07/25/19 07:00 07/25/19 18:59 DC Sevoflurane (Ultane) 60 ml STK-MED ONCE 07/25/19 12:46 07/25/19 12:46 DC Sodium Bicarbonate 50 meq/Sodium Chloride 1,050 ml @ 75 mls/hr Q14H 07/06/19 07:30 07/11/19 10:28 DC 07/10/19 21:10 75 MLS/HR Sodium Chloride (Normal Saline Flush) 20 ml PRN Q5MIN PRN 08/02/19 15:00 Sodium Chloride 90 meq/Calcium Gluconate 10 meq/ Multivitamins 10 ml/Chromium/ Copper/Manganese/ Seleni/Zn 0.5 ml/ Total Parenteral Nutrition/Amino Acids/Dextrose/ Fat Emulsion Intravenous 1,512 ml @ 63 mls/hr TPN CONT 07/06/19 22:00 07/07/19 21:59 DC 07/06/19 22:06 63 MLS/HR Sodium Chloride 90 meq/Calcium Gluconate 10 meq/ Multivitamins 10 ml/Chromium/ Copper/Manganese/ Seleni/Zn 1 ml/ Total Parenteral Nutrition/Amino Acids/Dextrose/ Fat Emulsion Intravenous 55.005 ml @ 2.292 mls/hr TPN CONT 07/06/19 22:00 07/06/19 12:33 DC Sodium Chloride 90 meq/Magnesium Sulfate 10 meq/ Calcium Gluconate 20 meq/ Multivitamins 10 ml/Chromium/ Copper/Manganese/ Seleni/Zn 0.5 ml/ Total Parenteral Nutrition/Amino Acids/Dextrose/ Fat Emulsion Intravenous 1,512 ml @ 63 mls/hr TPN CONT 07/07/19 22:00 07/08/19 21:59 DC 07/07/19 22:25 63 MLS/HR Sodium Chloride 90 meq/Magnesium Sulfate 12 meq/ Calcium Gluconate 15 meq/ Multivitamins 10 ml/Chromium/ Copper/Manganese/ Seleni/Zn 0.5 ml/ Insulin Human Regular 25 unit/ Total Parenteral Nutrition/Amino Acids/Dextrose/ Fat Emulsion Intravenous 1,400 ml @ 58.333 mls/ hr TPN CONT 07/27/19 22:00 07/28/19 21:59 DC 07/27/19 21:41 58.333 MLS/HR Sodium Chloride 90 meq/Potassium Chloride 15 meq/ Magnesium Sulfate 12 meq/Calcium Gluconate 15 meq/ Multivitamins 10 ml/Chromium/ Copper/Manganese/ Seleni/Zn 0.5 ml/ Insulin Human Regular 25 unit/ Total Parenteral Nutrition/Amino Acids/Dextrose/ Fat Emulsion Intravenous 1,400 ml @ 58.333 mls/ hr TPN CONT 07/26/19 22:00 07/27/19 21:59 DC 07/26/19 22:13 58.333 MLS/HR Sodium Chloride 90 meq/Potassium Chloride 15 meq/ Potassium Phosphate 10 mmol/ Magnesium Sulfate 8 meq/Calcium Gluconate 15 meq/ Multivitamins 10 ml/Chromium/ Copper/Manganese/ Seleni/Zn 0.5 ml/ Insulin Human Regular 25 unit/ Total Parenteral Nutrition/Amino Acids/Dextrose/ Fat Emulsion Intravenous 1,400 ml @ 58.333 mls/ hr TPN CONT 07/24/19 22:00 07/25/19 21:59 DC 07/24/19 21:20 58.333 MLS/HR Sodium Chloride 90 meq/Potassium Chloride 15 meq/ Potassium Phosphate 10 mmol/ Magnesium Sulfate 10 meq/Calcium Gluconate 20 meq/ Multivitamins 10 ml/Chromium/ Copper/Manganese/ Seleni/Zn 0.5 ml/ Total Parenteral Nutrition/Amino Acids/Dextrose/ Fat Emulsion Intravenous 1,400 ml @ 58.333 mls/ hr TPN CONT 07/11/19 22:00 07/12/19 21:59 DC 07/11/19 21:42 58.333 MLS/HR Sodium Chloride 90 meq/Potassium Chloride 15 meq/ Potassium Phosphate 10 mmol/ Magnesium Sulfate 12 meq/Calcium Gluconate 15 meq/ Multivitamins 10 ml/Chromium/ Copper/Manganese/ Seleni/Zn 0.5 ml/ Insulin Human Regular 25 unit/ Total Parenteral Nutrition/Amino Acids/Dextrose/ Fat Emulsion Intravenous 1,400 ml @ 58.333 mls/ hr TPN CONT 07/25/19 22:00 07/26/19 21:59 DC 07/25/19 22:24 58.333 MLS/HR Sodium Chloride 90 meq/Potassium Chloride 15 meq/ Potassium Phosphate 15 mmol/ Magnesium Sulfate 10 meq/Calcium Gluconate 15 meq/ Multivitamins 10 ml/Chromium/ Copper/Manganese/ Seleni/Zn 0.5 ml/ Total Parenteral Nutrition/Amino Acids/Dextrose/ Fat Emulsion Intravenous 1,400 ml @ 58.333 mls/ hr TPN CONT 07/12/19 22:00 07/13/19 21:59 DC 07/12/19 22:17 58.333 MLS/HR Sodium Chloride 90 meq/Potassium Chloride 15 meq/ Potassium Phosphate 15 mmol/ Magnesium Sulfate 10 meq/Calcium Gluconate 20 meq/ Multivitamins 10 ml/Chromium/ Copper/Manganese/ Seleni/Zn 0.5 ml/ Total Parenteral Nutrition/Amino Acids/Dextrose/ Fat Emulsion Intravenous 1,200 ml @ 50 mls/hr TPN CONT 07/10/19 22:00 07/10/19 14:17 DC Sodium Chloride 90 meq/Potassium Chloride 15 meq/ Potassium Phosphate 18 mmol/ Magnesium Sulfate 8 meq/Calcium Gluconate 15 meq/ Multivitamins 10 ml/Chromium/ Copper/Manganese/ Seleni/Zn 0.5 ml/ Insulin Human Regular 10 unit/ Total Parenteral Nutrition/Amino Acids/Dextrose/ Fat Emulsion Intravenous 1,400 ml @ 58.333 mls/ hr TPN CONT 07/15/19 22:00 07/16/19 21:59 DC 07/15/19 21:43 58.333 MLS/HR Sodium Chloride 90 meq/Potassium Chloride 15 meq/ Potassium Phosphate 18 mmol/ Magnesium Sulfate 8 meq/Calcium Gluconate 15 meq/ Multivitamins 10 ml/Chromium/ Copper/Manganese/ Seleni/Zn 0.5 ml/ Insulin Human Regular 15 unit/ Total Parenteral Nutrition/Amino Acids/Dextrose/ Fat Emulsion Intravenous 1,400 ml @ 58.333 mls/ hr TPN CONT 07/18/19 22:00 07/19/19 21:59 DC 07/18/19 21:47 58.333 MLS/HR Sodium Chloride 90 meq/Potassium Chloride 15 meq/ Potassium Phosphate 18 mmol/ Magnesium Sulfate 8 meq/Calcium Gluconate 15 meq/ Multivitamins 10 ml/Chromium/ Copper/Manganese/ Seleni/Zn 0.5 ml/ Insulin Human Regular 20 unit/ Total Parenteral Nutrition/Amino Acids/Dextrose/ Fat Emulsion Intravenous 1,400 ml @ 58.333 mls/ hr TPN CONT 07/21/19 22:00 07/22/19 21:59 DC 07/21/19 22:45 58.333 MLS/HR Sodium Chloride 90 meq/Potassium Chloride 15 meq/ Potassium Phosphate 18 mmol/ Magnesium Sulfate 8 meq/Calcium Gluconate 15 meq/ Multivitamins 10 ml/Chromium/ Copper/Manganese/ Seleni/Zn 0.5 ml/ Total Parenteral Nutrition/Amino Acids/Dextrose/ Fat Emulsion Intravenous 1,400 ml @ 58.333 mls/ hr TPN CONT 07/14/19 22:00 07/15/19 21:59 DC 07/14/19 22:00 58.333 MLS/HR Sodium Chloride 90 meq/Potassium Phosphate 15 mmol/ Magnesium Sulfate 12 meq/Calcium Gluconate 15 meq/ Multivitamins 10 ml/Chromium/ Copper/Manganese/ Seleni/Zn 0.5 ml/ Insulin Human Regular 30 unit/ Total Parenteral Nutrition/Amino Acids/Dextrose/ Fat Emulsion Intravenous 1,400 ml @ 58.333 mls/ hr TPN CONT 07/29/19 22:00 07/30/19 21:59 DC 07/29/19 21:49 58.333 MLS/HR Sodium Chloride 90 meq/Potassium Phosphate 15 mmol/ Magnesium Sulfate 12 meq/Calcium Gluconate 15 meq/ Multivitamins 10 ml/Chromium/ Copper/Manganese/ Seleni/Zn 0.5 ml/ Insulin Human Regular 40 unit/ Total Parenteral Nutrition/Amino Acids/Dextrose/ Fat Emulsion Intravenous 1,400 ml @ 58.333 mls/ hr TPN CONT 07/30/19 22:00 07/31/19 21:59 DC 07/30/19 21:21 58.333 MLS/HR Sodium Chloride 90 meq/Potassium Phosphate 19 mmol/ Magnesium Sulfate 12 meq/Calcium Gluconate 15 meq/ Multivitamins 10 ml/Chromium/ Copper/Manganese/ Seleni/Zn 0.5 ml/ Insulin Human Regular 40 unit/ Total Parenteral Nutrition/Amino Acids/Dextrose/ Fat Emulsion Intravenous 1,400 ml @ 58.333 mls/ hr TPN CONT 07/31/19 22:00 08/01/19 21:59 DC 07/31/19 21:54 58.333 MLS/HR Sodium Chloride 90 meq/Potassium Phosphate 5 mmol/ Magnesium Sulfate 12 meq/Calcium Gluconate 15 meq/ Multivitamins 10 ml/Chromium/ Copper/Manganese/ Seleni/Zn 0.5 ml/ Insulin Human Regular 30 unit/ Total Parenteral Nutrition/Amino Acids/Dextrose/ Fat Emulsion Intravenous 1,400 ml @ 58.333 mls/ hr TPN CONT 07/28/19 22:00 07/29/19 21:59 DC 07/28/19 22:08 58.333 MLS/HR Sodium Chloride 100 meq/Potassium Chloride 40 meq/ Magnesium Sulfate 15 meq/Calcium Gluconate 15 meq/ Multivitamins 10 ml/Chromium/ Copper/Manganese/ Seleni/Zn 0.5 ml/ Insulin Human Regular 35 unit/ Total Parenteral Nutrition/Amino Acids/Dextrose/ Fat Emulsion Intravenous 1,400 ml @ 58.333 mls/ hr TPN CONT 08/07/19 22:00 08/08/19 21:59 DC 08/07/19 22:46 58.333 MLS/HR Sodium Chloride 100 meq/Potassium Chloride 40 meq/ Magnesium Sulfate 20 meq/Calcium Gluconate 10 meq/ Multivitamins 10 ml/Chromium/ Copper/Manganese/ Seleni/Zn 0.5 ml/ Insulin Human Regular 35 unit/ Total Parenteral Nutrition/Amino Acids/Dextrose/ Fat Emulsion Intravenous 1,400 ml @ 58.333 mls/ hr TPN CONT 08/11/19 22:00 08/12/19 21:59 08/12/19 00:06 58.333 MLS/HR Sodium Chloride 100 meq/Potassium Chloride 40 meq/ Magnesium Sulfate 20 meq/Calcium Gluconate 15 meq/ Multivitamins 10 ml/Chromium/ Copper/Manganese/ Seleni/Zn 0.5 ml/ Insulin Human Regular 35 unit/ Total Parenteral Nutrition/Amino Acids/Dextrose/ Fat Emulsion Intravenous 1,400 ml @ 58.333 mls/ hr TPN CONT 08/10/19 22:00 08/11/19 21:59 DC 08/10/19 22:27 58.333 MLS/HR Sodium Chloride 100 meq/Potassium Phosphate 10 mmol/ Magnesium Sulfate 12 meq/Calcium Gluconate 15 meq/ Multivitamins 10 ml/Chromium/ Copper/Manganese/ Seleni/Zn 0.5 ml/ Insulin Human Regular 35 unit/ Potassium Chloride 20 meq/ Total Parenteral Nutrition/Amino Acids/Dextrose/ Fat Emulsion Intravenous 1,400 ml @ 58.333 mls/ hr TPN CONT 08/04/19 22:00 08/05/19 21:59 DC 08/04/19 22:10 58.333 MLS/HR Sodium Chloride 100 meq/Potassium Phosphate 19 mmol/ Magnesium Sulfate 12 meq/Calcium Gluconate 15 meq/ Multivitamins 10 ml/Chromium/ Copper/Manganese/ Seleni/Zn 0.5 ml/ Insulin Human Regular 40 unit/ Potassium Chloride 20 meq/ Total Parenteral Nutrition/Amino Acids/Dextrose/ Fat Emulsion Intravenous 1,400 ml @ 58.333 mls/ hr TPN CONT 08/03/19 22:00 08/04/19 21:59 DC 08/03/19 21:20 58.333 MLS/HR Sodium Chloride 100 meq/Potassium Phosphate 5 mmol/ Magnesium Sulfate 12 meq/Calcium Gluconate 15 meq/ Multivitamins 10 ml/Chromium/ Copper/Manganese/ Seleni/Zn 0.5 ml/ Insulin Human Regular 35 unit/ Potassium Chloride 20 meq/ Total Parenteral Nutrition/Amino Acids/Dextrose/ Fat Emulsion Intravenous 1,400 ml @ 58.333 mls/ hr TPN CONT 08/05/19 22:00 08/06/19 21:59 DC 08/05/19 22:59 58.333 MLS/HR Succinylcholine Chloride (Anectine) 120 mg 1X ONCE 07/11/19 08:30 07/11/19 08:31 DC 07/11/19 08:34 120 MG Lab Laboratory Tests Test 08/11/19 12:21 08/11/19 17:25 08/12/19 00:11 08/12/19 06:20 Glucose (Fingerstick) 146 mg/dL (70-99) 130 mg/dL (70-99) 137 mg/dL (70-99) White Blood Count 11.5 x10^3/uL (4.0-11.0) Red Blood Count 2.75 x10^6/uL (3.50-5.40) Hemoglobin 8.2 g/dL (12.0-15.5) Hematocrit 25.0 % (36.0-47.0) Mean Corpuscular Volume 91 fL (79-100) Mean Corpuscular Hemoglobin 30 pg (25-35) Mean Corpuscular Hemoglobin Concent 33 g/dL (31-37) Red Cell Distribution Width 18.6 % (11.5-14.5) Platelet Count 287 x10^3/uL (140-400) Neutrophils (%) (Auto) 83 % (31-73) Lymphocytes (%) (Auto) 8 % (24-48) Monocytes (%) (Auto) 8 % (0-9) Eosinophils (%) (Auto) 0 % (0-3) Basophils (%) (Auto) 0 % (0-3) Neutrophils # (Auto) 9.5 x10^3/uL (1.8-7.7) Lymphocytes # (Auto) 0.9 x10^3/uL (1.0-4.8) Monocytes # (Auto) 0.9 x10^3/uL (0.0-1.1) Eosinophils # (Auto) 0.0 x10^3/uL (0.0-0.7) Basophils # (Auto) 0.0 x10^3/uL (0.0-0.2) Sodium Level 151 mmol/L (136-145) Potassium Level 3.4 mmol/L (3.5-5.1) Chloride Level 115 mmol/L (98-107) Carbon Dioxide Level 24 mmol/L (21-32) Anion Gap 12 (6-14) Blood Urea Nitrogen 83 mg/dL (7-20) Creatinine 1.3 mg/dL (0.6-1.0) Estimated GFR (Cockcroft-Gault) 43.5 Glucose Level 142 mg/dL (70-99) Calcium Level 8.9 mg/dL (8.5-10.1) Test 08/12/19 06:36 Glucose (Fingerstick) 121 mg/dL (70-99) Results All relevant outside records, renal labs, imaging studies, telemetry/EKG's were reviewed. VERENA KENT MD Aug 12, 2019 09:13
--- NOTE | 2019-08-12 09:25 | PDOC ---
PULMONARY PROGRESS NOTES Subjective Patient intubated on 07/10 , s/p trach 07/24, Patient responding to verbal stimuli Vitals Vital Signs Date Time Temp Pulse Resp B/P (MAP) Pulse Ox O2 Delivery O2 Flow Rate FiO2 08/12/19 07:28 100 Ventilator 08/12/19 06:00 98.0 106 141/77 (98) 98.0 08/12/19 03:20 23 6.0 Comments ros unable to obtain on vent Lungs: Crackles, Other (dimished in BLL nc at perrl nose clear neck trach site ok no lad no thyromegaly) Cardiovascular: S1, S2 Abdomen: Soft, Non-tender, Other (distended) Extremities: Other (+3 generalized edema ) Skin: Warm, Dry Labs Laboratory Tests Test 08/10/19 12:19 08/10/19 18:19 08/11/19 00:14 08/11/19 06:20 Glucose (Fingerstick) 146 mg/dL (70-99) 146 mg/dL (70-99) 141 mg/dL (70-99) Sodium Level 144 mmol/L (136-145) Potassium Level 3.6 mmol/L (3.5-5.1) Chloride Level 107 mmol/L (98-107) Carbon Dioxide Level 26 mmol/L (21-32) Anion Gap 11 (6-14) Blood Urea Nitrogen 78 mg/dL (7-20) Creatinine 1.4 mg/dL (0.6-1.0) Estimated GFR (Cockcroft-Gault) 40.0 Glucose Level 146 mg/dL (70-99) Calcium Level 9.4 mg/dL (8.5-10.1) Phosphorus Level 3.8 mg/dL (2.6-4.7) Triglycerides Level 148 mg/dL (0-150) Test 08/11/19 06:23 08/11/19 06:35 08/11/19 12:21 08/11/19 17:25 Glucose (Fingerstick) 134 mg/dL (70-99) 146 mg/dL (70-99) 130 mg/dL (70-99) White Blood Count 15.6 x10^3/uL (4.0-11.0) Red Blood Count 3.19 x10^6/uL (3.50-5.40) Hemoglobin 9.4 g/dL (12.0-15.5) Hematocrit 28.6 % (36.0-47.0) Mean Corpuscular Volume 90 fL (79-100) Mean Corpuscular Hemoglobin 30 pg (25-35) Mean Corpuscular Hemoglobin Concent 33 g/dL (31-37) Red Cell Distribution Width 18.4 % (11.5-14.5) Platelet Count 343 x10^3/uL (140-400) Neutrophils (%) (Auto) 82 % (31-73) Lymphocytes (%) (Auto) 10 % (24-48) Monocytes (%) (Auto) 8 % (0-9) Eosinophils (%) (Auto) 0 % (0-3) Basophils (%) (Auto) 0 % (0-3) Neutrophils # (Auto) 12.8 x10^3/uL (1.8-7.7) Lymphocytes # (Auto) 1.5 x10^3/uL (1.0-4.8) Monocytes # (Auto) 1.3 x10^3/uL (0.0-1.1) Eosinophils # (Auto) 0.0 x10^3/uL (0.0-0.7) Basophils # (Auto) 0.0 x10^3/uL (0.0-0.2) Test 08/12/19 00:11 08/12/19 06:20 08/12/19 06:36 Glucose (Fingerstick) 137 mg/dL (70-99) 121 mg/dL (70-99) White Blood Count 11.5 x10^3/uL (4.0-11.0) Red Blood Count 2.75 x10^6/uL (3.50-5.40) Hemoglobin 8.2 g/dL (12.0-15.5) Hematocrit 25.0 % (36.0-47.0) Mean Corpuscular Volume 91 fL (79-100) Mean Corpuscular Hemoglobin 30 pg (25-35) Mean Corpuscular Hemoglobin Concent 33 g/dL (31-37) Red Cell Distribution Width 18.6 % (11.5-14.5) Platelet Count 287 x10^3/uL (140-400) Neutrophils (%) (Auto) 83 % (31-73) Lymphocytes (%) (Auto) 8 % (24-48) Monocytes (%) (Auto) 8 % (0-9) Eosinophils (%) (Auto) 0 % (0-3) Basophils (%) (Auto) 0 % (0-3) Neutrophils # (Auto) 9.5 x10^3/uL (1.8-7.7) Lymphocytes # (Auto) 0.9 x10^3/uL (1.0-4.8) Monocytes # (Auto) 0.9 x10^3/uL (0.0-1.1) Eosinophils # (Auto) 0.0 x10^3/uL (0.0-0.7) Basophils # (Auto) 0.0 x10^3/uL (0.0-0.2) Sodium Level 151 mmol/L (136-145) Potassium Level 3.4 mmol/L (3.5-5.1) Chloride Level 115 mmol/L (98-107) Carbon Dioxide Level 24 mmol/L (21-32) Anion Gap 12 (6-14) Blood Urea Nitrogen 83 mg/dL (7-20) Creatinine 1.3 mg/dL (0.6-1.0) Estimated GFR (Cockcroft-Gault) 43.5 Glucose Level 142 mg/dL (70-99) Calcium Level 8.9 mg/dL (8.5-10.1) Laboratory Tests Test 08/11/19 12:21 08/11/19 17:25 08/12/19 00:11 08/12/19 06:20 Glucose (Fingerstick) 146 mg/dL (70-99) 130 mg/dL (70-99) 137 mg/dL (70-99) White Blood Count 11.5 x10^3/uL (4.0-11.0) Red Blood Count 2.75 x10^6/uL (3.50-5.40) Hemoglobin 8.2 g/dL (12.0-15.5) Hematocrit 25.0 % (36.0-47.0) Mean Corpuscular Volume 91 fL (79-100) Mean Corpuscular Hemoglobin 30 pg (25-35) Mean Corpuscular Hemoglobin Concent 33 g/dL (31-37) Red Cell Distribution Width 18.6 % (11.5-14.5) Platelet Count 287 x10^3/uL (140-400) Neutrophils (%) (Auto) 83 % (31-73) Lymphocytes (%) (Auto) 8 % (24-48) Monocytes (%) (Auto) 8 % (0-9) Eosinophils (%) (Auto) 0 % (0-3) Basophils (%) (Auto) 0 % (0-3) Neutrophils # (Auto) 9.5 x10^3/uL (1.8-7.7) Lymphocytes # (Auto) 0.9 x10^3/uL (1.0-4.8) Monocytes # (Auto) 0.9 x10^3/uL (0.0-1.1) Eosinophils # (Auto) 0.0 x10^3/uL (0.0-0.7) Basophils # (Auto) 0.0 x10^3/uL (0.0-0.2) Sodium Level 151 mmol/L (136-145) Potassium Level 3.4 mmol/L (3.5-5.1) Chloride Level 115 mmol/L (98-107) Carbon Dioxide Level 24 mmol/L (21-32) Anion Gap 12 (6-14) Blood Urea Nitrogen 83 mg/dL (7-20) Creatinine 1.3 mg/dL (0.6-1.0) Estimated GFR (Cockcroft-Gault) 43.5 Glucose Level 142 mg/dL (70-99) Calcium Level 8.9 mg/dL (8.5-10.1) Test 08/12/19 06:36 Glucose (Fingerstick) 121 mg/dL (70-99) Medications Active Scripts Medications Dose Route/Sig Max Daily Dose Days Date Category Bisoprolol Fumarate 5 Mg Tablet 10 Mg PO DAILY 07/04/19 Reported Impression . IMPRESSION: 1. Acute hypoxemic respiratory failure secondary to ARDS status post trach, 2. Gallstone pancreatitis 3. Severe metabolic acidosis.stable 4. Acute kidney injury-stable, ON HD-- continue to improve 5. Acute gallstone pancreatitis. 6. Hypoalbuminemia. 7. Moderate persistent effusions 8. Fever-persist. Per ID, per surgery 9. Chronic anemia 10. Covid 19 testing negative 11. Moderate to large ascites-S/P paracentisis S/P paracentisis with 4 liters removed on 08/03/19 Plan . Nothing new to add Patient still febrile, will continue same, apparently she may undergo surgery next week Pressure support trials as tolerated PT hep sq and protonix for prophylaxis Follow surgery recs Follow ID rec, abx per id Follow nephrology recs Nutritional support per surgery continue TPN for nutrition DVT/GI PPX d/w RN/RT HARMEET BEE MD Aug 12, 2019 09:25
--- NOTE | 2019-08-12 10:35 | PDOC ---
Subjective: Subjective: Indicates discomfort. Objective: Objective: D/w Dr. Neri. D/w nurse - c/o pain, has been anxious, on CPAP, says Dr. Servin discussed surgery w/ her. Vital Signs: Vital Signs Date Time Temp Pulse Resp B/P (MAP) Pulse Ox O2 Delivery O2 Flow Rate FiO2 08/12/19 09:24 95 Ventilator 08/12/19 06:00 98.0 106 141/77 (98) 98.0 08/12/19 03:20 23 6.0 Labs: Laboratory Tests Test 08/11/19 12:21 08/11/19 17:25 08/12/19 00:11 08/12/19 06:20 Glucose (Fingerstick) 146 mg/dL 130 mg/dL 137 mg/dL White Blood Count 11.5 x10^3/uL Red Blood Count 2.75 x10^6/uL Hemoglobin 8.2 g/dL Hematocrit 25.0 % Mean Corpuscular Volume 91 fL Mean Corpuscular Hemoglobin 30 pg Mean Corpuscular Hemoglobin Concent 33 g/dL Red Cell Distribution Width 18.6 % Platelet Count 287 x10^3/uL Neutrophils (%) (Auto) 83 % Lymphocytes (%) (Auto) 8 % Monocytes (%) (Auto) 8 % Eosinophils (%) (Auto) 0 % Basophils (%) (Auto) 0 % Neutrophils # (Auto) 9.5 x10^3/uL Lymphocytes # (Auto) 0.9 x10^3/uL Monocytes # (Auto) 0.9 x10^3/uL Eosinophils # (Auto) 0.0 x10^3/uL Basophils # (Auto) 0.0 x10^3/uL Sodium Level 151 mmol/L Potassium Level 3.4 mmol/L Chloride Level 115 mmol/L Carbon Dioxide Level 24 mmol/L Anion Gap 12 Blood Urea Nitrogen 83 mg/dL Creatinine 1.3 mg/dL Estimated GFR (Cockcroft-Gault) 43.5 Glucose Level 142 mg/dL Calcium Level 8.9 mg/dL Test 08/12/19 06:36 Glucose (Fingerstick) 121 mg/dL PE: GEN: chronically ill LUNGS: trach/CPAP HEART: mildly tachycardic ABD: distended EXTREMITY: hands and feet a bit tremulous NEURO/PSYCH: awake, waves hello A/P: Gallstone pancreatitis w/ necrosis, MOSF Hypernatremia -- Plans for OR next week, will follow. Hemodynamically unstable?: No Is patient in severe pain?: No Is NPO status required?: Yes CYNDEE FALCON Aug 12, 2019 10:35
[2019-08-12] MEDS ORDERED: ALTEPLASE 1MG SYRINGE. INT CAT ONE (10:45)
--- NOTE | 2019-08-12 11:14 | PDOC ---
[facility] PROGRESS NOTE Chief Complaint Chief Complaint Respiratory failure requiring mechanical ventilation (on vent since 07/10) Tracheostomy bilateral pleural effusions/pulm edema Sepsis Severe Acute gallstone pancreatitis (not a surgical candidate at this time) with necrosis Acute kidney failure now requiring dialysis Salpingitis Gallstones (Calculus of gallbladder with acute cholecystitis without obstruction) HTN Leukocytosis Hypoxia Uterine fibroid Intractable pain Intractable nausea Covid 19 negative. Acute on chronic anemia EEG: No seizure activity. ESRD on HD Hyperglycemia, persistently in 200s History of Present Illness History of Present Illness 08-12-2019 Patient seen and examined in the ICU She remains mechanically ventilated Spontaneous respirations with 25 of pressure support 30% FiO2 NG to suction She is on TPN She is sedated with Precedex Discussed with RN Chart reviewed She remains critically ill 08-11-2019 Patient seen and examined in the ICU She remains mechanically ventilated AC/18/ 50/30% FiO2 Chart reviewed Discussed with RN She is critically ill 08-10-2019 Patient seen and examined in the ICU She has a tracheostomy AC/05/08 50/30% Chart reviewed Discussed with RN She remains extremely critically ill 08-09-2019 Patient seen in ICU room 116 she is currently on dialysis Tries to mumble is grabbing at her face with her left hand She is extremely weak cannot communicate well She is swollen Chart reviewed Discussed with RN Very critically ill 08-08-2019 patient seen and examined in the ICU She is on the vent via tracheostomy AC//4 50/35% Has IV TPN NG to suction Wearing mitts for patient safety Still seems encephalopathic Chart reviewed Discussed with RN She remains critically ill Ms Diaz is a 48yo F w/ PMHx HTN, prediabetes who presented to the emergency room with complaints of abdominal pain on 07/04/2019. Found with Lipase 76392, AST 401, ALT 249, Bilirubin 1.4. CT abdomen confirms pancreatic inflammation, peripancreatic fluid and inflammatory changes around the pancreas consistent with pancreatitis. Cholelithiasis and 1.4cm uterine fibroid as well as possible left salpingitis. Admitted for further care GI, General surgery, ID, Pulm consulted. 07/04: No urine output. Added dilaudid for pain, PICC placed per IR. Renal US negative.Seen bedside in ICU, given 2L additional NSS and albumin infusion. Still hypotensive, started on levophed. Repeat CT abdomen w/ necrosis. 07/05: O2 saturation 87% on nasal cannula oxygen. Dialysis catheter per nephrology 07/06: She is now on BiPAP appears more ill, now on dialysis 07/07: Seen on BiPAP. Her mother and another family member are present and seemed to be good support for her. Currently on dialysis. Appears critically ill 07/08: Overnight Tmax 101.7 , still on BiPAP FiO2 40%, still on low dose Levophed gtt, TPN initiated. On dialysis 07/24: Tracheostomy 07/30: S/p tracheostomy on vent spontaneous respirations with 5 of pressure support 35% FiO2, rectal tube and a Lind, off pressors 07/31: Off pressors. Seen on dialysis this morning. BUN 80. Tracking with her eyes. Still on vent via trach. 08/01: BUN 68, Cr 1.7. Temp 100.2F axillary. WBC 9.8. Still on vent via trach. Tracking reasonably well. In obvious discomfort. Removed PICC and CVC LIJ and replaced. Tips sent for culture. CT chest/abd/pelvis with bilateral pleural effusion and ascites. 08/02: Renal function stable. Still on vent. More interactive today. Miming wish for food. Plan discussed for thoracentesis/paracentesis with daughters today. They were under impression patient was doing worse due to a miscommunication which has been clarified over the phone. 4.3L removed. 08/03: BUN 88, Cr 1.8. Much more interactive today. Appears more comfortable today. 08/04: Febrile overnight 101.8F. More interactive, still on vent. Asking for ice by miming. 08/05: Afebrile overnight. TMax last 24 hours 100.6F. Hb 7.1. Interactive when awake. Afebrile. Hb 7. Not tolerating vent wean. Very interactive, on low dose precedex. Excellent UOP over the past 72 hours Plan: Cont vent weaning, dialysis Trach shield during day if ok with pulm. Would recommend ABG after 4 hours to r/o CO2 retention, however and still vent overnight Vitals/I&O Vitals/I&O: Vital Signs Date Time Temp Pulse Resp B/P (MAP) Pulse Ox O2 Delivery O2 Flow Rate FiO2 08/12/19 09:24 95 Ventilator 08/12/19 06:00 98.0 106 141/77 (98) 98.0 08/12/19 03:20 23 6.0 I & O 08/11/19 08/11/19 08/12/19 15:00 23:00 07:00 Intake Total 200 ml 963 ml 904 ml Output Total 850 ml 1250 ml 850 ml Balance -650 ml -287 ml 54 ml Physical Exam Physical Exam: GENERAL: Sleeping awakens barely on Precedex HEENT: Pupils equal, + NGT, oral cavity dry NECK: Trach/vent LUNGS: rhonchi HEART: S1, S2, regular ABDOMEN: Distended, tender, hypoactive BS, : Lind (08/01) EXTREMITIES: Generalized edema, no cyanosis, SCDs bilaterally DERMATOLOGIC: Warm and dry. No generalized rash. CENTRAL NERVOUS SYSTEM: Extremely weak trying to talk but unable to understand HDC & LIJ (08/01) clean General: Other (opens eyes on exam) Heart: Regular rate, Normal S1, Other (increased rate) Lungs: Crackles, Other (dimished in BLL nc at perrl nose clear neck trach site ok no lad no thyromegaly) Abdomen: Other (distended, TTP on exam) Extremities: Other (ANASARCA) Skin: Other (mottling noted to extremities ) Labs Labs: Laboratory Tests Test 08/11/19 12:21 08/11/19 17:25 08/12/19 00:11 08/12/19 06:20 Glucose (Fingerstick) 146 mg/dL (70-99) 130 mg/dL (70-99) 137 mg/dL (70-99) White Blood Count 11.5 x10^3/uL (4.0-11.0) Red Blood Count 2.75 x10^6/uL (3.50-5.40) Hemoglobin 8.2 g/dL (12.0-15.5) Hematocrit 25.0 % (36.0-47.0) Mean Corpuscular Volume 91 fL (79-100) Mean Corpuscular Hemoglobin 30 pg (25-35) Mean Corpuscular Hemoglobin Concent 33 g/dL (31-37) Red Cell Distribution Width 18.6 % (11.5-14.5) Platelet Count 287 x10^3/uL (140-400) Neutrophils (%) (Auto) 83 % (31-73) Lymphocytes (%) (Auto) 8 % (24-48) Monocytes (%) (Auto) 8 % (0-9) Eosinophils (%) (Auto) 0 % (0-3) Basophils (%) (Auto) 0 % (0-3) Neutrophils # (Auto) 9.5 x10^3/uL (1.8-7.7) Lymphocytes # (Auto) 0.9 x10^3/uL (1.0-4.8) Monocytes # (Auto) 0.9 x10^3/uL (0.0-1.1) Eosinophils # (Auto) 0.0 x10^3/uL (0.0-0.7) Basophils # (Auto) 0.0 x10^3/uL (0.0-0.2) Sodium Level 151 mmol/L (136-145) Potassium Level 3.4 mmol/L (3.5-5.1) Chloride Level 115 mmol/L (98-107) Carbon Dioxide Level 24 mmol/L (21-32) Anion Gap 12 (6-14) Blood Urea Nitrogen 83 mg/dL (7-20) Creatinine 1.3 mg/dL (0.6-1.0) Estimated GFR (Cockcroft-Gault) 43.5 Glucose Level 142 mg/dL (70-99) Calcium Level 8.9 mg/dL (8.5-10.1) Test 08/12/19 06:36 Glucose (Fingerstick) 121 mg/dL (70-99) Assessment and Plan Assessmemt and Plan Problems Medical Problems: (1) Acute pancreatitis Status: Acute (2) Cholelithiasis Status: Acute Respiratory failure requiring intubation Status post tracheostomy Severe Acute gallstone pancreatitis (she is not a surgical candidate as she is too ill) Acute kidney failure now requiring dialysis Salpingo--itis Gallstones (Calculus of gallbladder with acute cholecystitis without obstruction) HTN Leukocytosis Hypoxia Uterine fibroid Hypoxia with respiratory failure Intractable pain Intractable nausea Plan ICU monitoring Tracheostomy care NG suctioning Vent management per pulm. pressure support as tolerated Dialysis per nephro Merrem (07/26) and Zyvox (07/28) and micafungin Follow cultures Trach care Nutritional support When necessary levo fed Neuro following No plans for sx at present as she is to ill still Discharge disposition pending (? Eventual LTAC) She is still critically ill Prognosis very guarded Total time 31 min Comment Review of Relevant I have reviewed the following items kolby (where applicable) has been applied. Medications: Current Medications Medications (Trade) Dose Ordered Sig/Yvon Route PRN Reason Start Time Stop Time Status Last Admin Dose Admin Sodium Chloride 100 meq/Potassium Chloride 40 meq/ Magnesium Sulfate 20 meq/Calcium Gluconate 10 meq/ Multivitamins 10 ml/Chromium/ Copper/Manganese/ Seleni/Zn 0.5 ml/ Insulin Human Regular 35 unit/ Total Parenteral Nutrition/Amino Acids/Dextrose/ Fat Emulsion Intravenous 1,400 ml @ 58.333 mls/ hr TPN CONT IV 08/11/19 22:00 08/12/19 21:59 08/12/19 00:06 Hemodynamically unstable?: No Is patient in severe pain?: No Is NPO status required?: Yes BEBO KIRBY III DO Aug 12, 2019 11:14
[2019-08-12 11:45] LABS: MAGNESIUM 2.1 mg/dL (1.8-2.4); PHOSPHORUS 3.9 mg/dL (2.6-4.7)
[2019-08-12] MEDS: TPN PER PHARMACY MC PRN (12:16)
--- NOTE | 2019-08-12 12:16 | NUR ---
Pharmacy TPN Dosing Note S: SCOTT AVILA is a 48 year old F Currently receiving Central Continuous TPN started 07/06/19 B:Pertinent PMH: Necrotizing pancreatitis Height: 5 feet, 8 inches Weight: 109.8 kg Current diet: NPO LABS: Sodium: 151 Potassium: 3.4 Chloride: 115 Calcium: 8.9 Corrected Calcium: 9.94 Magnesium: 2.1 CO2: 24 SCr: 1.3 Glucose: 142, 121 Albumin: 2.7 AST: 23 ALT: 11 TPN FORMULA: TPN TYPE: Central Continuous AMINO ACIDS: 125 gm DEXTROSE: 225 gm LIPIDS: 20 gm SODIUM ACETATE: 50 mEq POTASSIUM ACETATE: 55 mEq MAGNESIUM: 20 mEq CALCIUM: 10 mEq INSULIN: 35 units MULTIPLE VITAMIN: 10 ml TRACE ELEMENTS: 0.5 ml TPN PLAN: -Change chloride salt forms to acetate. -Serum sodium trending up, reduce NaAC to 50 mEq/day. -Serum potassium low, increase KAC to 55 mE/day. -Other electrolytes and blood glucose appear WNL and stable. -BMP tomorrow. R: Continue TPN @ current rate and with above formula. Will monitor electrolytes, glucose, and tolerance to TPN. ALYSE LOCO RPH, 08/12/19 1216 Addendum: 08/12/19 at 1419 by ALYSE LOCO RPH PHA Per instructions from nephrology, increased TPN rate to provide additional free water intake to treat hypernatremia. Alyse Loco PharmMaryD.
--- NOTE | 2019-08-12 13:09 | PDOC ---
PROGRESS NOTES Assessment Assessment Respiratory failure. Seizure. Metabolic encephalopathy. Fever, recurrent. Metabolic acidosis. Diffuse pulmonary infiltrate. Pleural effusion. Pancreatitis, necrotizing. Gallstone. Leukocytosis. Lymphopenia. Electrolytes imbalances. Hyperglycemia. DM. HTN. HLD. Anemia. Abnormal CXR. Obesity. Covid-19 still suspected though 1st test negative. RECOMMENDATIONS/PLAN: Continue life support in CCU at the present time. Keppra if has further seizures. Treat medical diseases. OT/PT. EEG: No seizure activity. OBJECTIVE: 08/12/19: No seizures reported over night. Past Medical History Cardiovascular: HTN, Hyperlipidemia Endocrine: Diabetes Family History Unobtainable. Social HistoryU not obtainable Allergies Coded Allergies: Codeine (Verified Allergy, Intermediate, rash, 07/04/19) ROS Unobtainable. NEUROLOGICAL EXAMINATION: Sleeping. Sitting in chair. Not oriented to time, place and person. PERRL. EOMI not examined. CN: no acute focal findings. Muscle tone: Decreased. Muscle strength: 3+ UE, 2+ LE. DTR: 1-2 Plantar reflex: Neutral response bilaterally Gait: not able to walk. Sensory exam: no response to stimuli.. Not able to access cerebellar signs. F-T-N test not performed. Patient seen in CCU. Objective Objective Vital Signs Date Time Temp Pulse Resp B/P (MAP) Pulse Ox O2 Delivery O2 Flow Rate FiO2 08/12/19 11:29 98 Ventilator 08/12/19 06:00 98.0 106 141/77 (98) 98.0 08/12/19 03:20 23 6.0 Intake and Output 08/12/19 07:00 Intake Total 2067 ml Output Total 2950 ml Balance -883 ml Intake Oral 0 ml IV Total 1163 ml Blood Product IV Normal Saline Flush 904 ml Output Urine Total 2825 ml Gastric Drainage Total 125 ml Vitals Signs Vitals VS - Last 72 Hours, by Label Date Time Temp Pulse Resp B/P (MAP) Pulse Ox O2 Delivery O2 Flow Rate FiO2 08/12/19 11:29 98 Ventilator 08/12/19 09:24 95 Ventilator 08/12/19 08:00 Mechanical Ventilator 08/12/19 07:28 100 Ventilator 08/12/19 06:00 98.0 106 141/77 (98) 98 Ventilator 98.0 08/12/19 05:27 100 08/12/19 05:00 86 124/71 (88) 100 Ventilator 08/12/19 04:00 Mechanical Ventilator 08/12/19 04:00 78 103/54 (70) 99 Ventilator 08/12/19 03:50 100 Ventilator 08/12/19 03:28 99 Ventilator 08/12/19 03:20 23 100 Ventilator 6.0 08/12/19 03:00 84 21 117/66 (83) 100 Ventilator 08/12/19 02:00 76 21 111/56 (74) 100 Ventilator 08/12/19 01:00 78 21 112/55 (74) 99 Ventilator 08/12/19 00:45 100 Ventilator 08/12/19 00:00 Mechanical Ventilator 08/12/19 00:00 98.8 78 21 102/50 (67) 100 Ventilator 98.8 08/11/19 23:00 102 27 157/79 (105) 100 Ventilator 08/11/19 22:00 92 20 156/78 (104) 100 Ventilator 08/11/19 21:00 98 28 153/79 (103) 100 Ventilator 08/11/19 21:00 99 Ventilator 08/11/19 20:31 99 6.0 08/11/19 20:10 99 Ventilator 08/11/19 20:00 99.2 110 36 165/79 (107) 100 Ventilator 99.2 08/11/19 20:00 Mechanical Ventilator 08/11/19 19:00 90 24 140/69 (92) 99 Ventilator 08/11/19 18:00 95 29 144/74 (97) 100 C-pap trial 08/11/19 17:54 100 Ventilator 08/11/19 17:00 92 30 142/80 (100) 100 C-pap trial 08/11/19 16:00 100.1 80 26 116/56 (76) 98 C-pap trial 100.1 08/11/19 16:00 Mechanical Ventilator 08/11/19 15:42 98 Ventilator 08/11/19 15:00 128 30 171/82 (111) 100 C-pap trial 08/11/19 14:13 98 Ventilator 08/11/19 14:00 100.7 108 28 161/92 (115) 100 C-pap trial 100.7 08/11/19 13:00 94 29 149/59 (89) 98 C-pap trial 08/11/19 12:31 100 6.0 08/11/19 12:01 100 6.0 08/11/19 12:00 101.0 128 40 190/146 (161) 98 Ventilator 101.0 08/11/19 12:00 Mechanical Ventilator 08/11/19 11:38 100 Ventilator 08/11/19 11:00 86 25 117/63 (81) 99 Ventilator 08/11/19 10:00 108 21 152/89 (110) 100 Ventilator 08/11/19 09:44 98 Ventilator 08/11/19 09:00 101.2 100 21 170/90 (116) 100 Ventilator 101.2 08/11/19 08:00 84 22 123/66 (85) 98 Ventilator 08/11/19 08:00 Mechanical Ventilator 08/11/19 07:26 98 Ventilator 08/11/19 07:00 100 24 145/82 (103) 98 Ventilator Laboratory Laboratory Laboratory Tests Test 08/11/19 17:25 08/12/19 00:11 08/12/19 06:20 08/12/19 06:36 Glucose (Fingerstick) 130 mg/dL (70-99) 137 mg/dL (70-99) 121 mg/dL (70-99) White Blood Count 11.5 x10^3/uL (4.0-11.0) Red Blood Count 2.75 x10^6/uL (3.50-5.40) Hemoglobin 8.2 g/dL (12.0-15.5) Hematocrit 25.0 % (36.0-47.0) Mean Corpuscular Volume 91 fL (79-100) Mean Corpuscular Hemoglobin 30 pg (25-35) Mean Corpuscular Hemoglobin Concent 33 g/dL (31-37) Red Cell Distribution Width 18.6 % (11.5-14.5) Platelet Count 287 x10^3/uL (140-400) Neutrophils (%) (Auto) 83 % (31-73) Lymphocytes (%) (Auto) 8 % (24-48) Monocytes (%) (Auto) 8 % (0-9) Eosinophils (%) (Auto) 0 % (0-3) Basophils (%) (Auto) 0 % (0-3) Neutrophils # (Auto) 9.5 x10^3/uL (1.8-7.7) Lymphocytes # (Auto) 0.9 x10^3/uL (1.0-4.8) Monocytes # (Auto) 0.9 x10^3/uL (0.0-1.1) Eosinophils # (Auto) 0.0 x10^3/uL (0.0-0.7) Basophils # (Auto) 0.0 x10^3/uL (0.0-0.2) Sodium Level 151 mmol/L (136-145) Potassium Level 3.4 mmol/L (3.5-5.1) Chloride Level 115 mmol/L (98-107) Carbon Dioxide Level 24 mmol/L (21-32) Anion Gap 12 (6-14) Blood Urea Nitrogen 83 mg/dL (7-20) Creatinine 1.3 mg/dL (0.6-1.0) Estimated GFR (Cockcroft-Gault) 43.5 Glucose Level 142 mg/dL (70-99) Calcium Level 8.9 mg/dL (8.5-10.1) Phosphorus Level 3.9 mg/dL (2.6-4.7) Magnesium Level 2.1 mg/dL (1.8-2.4) Microbiology 08/03/19 Aerobic and Anaerobic Culture - Final, Complete 08/03/19 Anaerobic Culture Result 1 (AELXANDRA) - Final, Complete 08/03/19 Aerobic Culture - Final, Complete 08/03/19 Aerobic Culture Result 1 (ALEXANDRA) - Final, Complete 08/03/19 Gram Stain - Final, Complete 08/03/19 Gram Stain Result 1 (ALEXANDRA) - Final, Complete 08/03/19 Gram Stain Result 2 (ALEXANDRA) - Final, Complete 08/02/19 Blood Culture - Final, Complete NO GROWTH AFTER 5 DAYS 07/31/19 Urine Culture - Final, Complete 07/31/19 Urine Culture Result 1 (ALEXANDRA) - Final, Complete Medication Medications Current Medications Alteplase, Recombinant (Cathflo For Central Catheter Clearance) 1 mg 1X ONCE INT CAT Last administered on 08/12/19at 11:44; Start 08/12/19 at 10:45; Stop 08/12/19 at 10:46; Status DC Fentanyl Citrate (Fentanyl 2ml Vial) 25 mcg PRN Q5MIN PRN IV MILD PAIN 1-3; Start 08/15/19 at 07:00; Stop 08/16/19 at 06:59 Fentanyl Citrate (Fentanyl 2ml Vial) 50 mcg PRN Q5MIN PRN IV MODERATE TO SEVERE PAIN; Start 08/15/19 at 07:00; Stop 08/16/19 at 06:59 Lidocaine HCl (Xylocaine-Mpf 1% 2ml Vial) 2 ml PRN 1X PRN ID PRIOR TO IV START; Start 08/15/19 at 07:00; Stop 08/16/19 at 06:59 Ondansetron HCl (Zofran) 4 mg PRN Q6HRS PRN IV NAUSEA/VOMITING; Start 08/15/19 at 07:00; Stop 08/16/19 at 06:59 Prochlorperazine Edisylate (Compazine) 5 mg PACU PRN PRN IV NAUSEA, MRX1; Start 08/15/19 at 07:00; Stop 08/16/19 at 06:59 Ringer's Solution 1,000 ml @ 30 mls/hr Q24H IV ; Start 08/15/19 at 07:00; Stop 08/15/19 at 18:59 Sodium Acetate 50 meq/Potassium Acetate 55 meq/ Magnesium Sulfate 20 meq/Calcium Gluconate 10 meq/ Multivitamins 10 ml/Chromium/ Copper/Manganese/ Seleni/Zn 0.5 ml/ Insulin Human Regular 35 unit/ Total Parenteral Nutrition/Amino Acids/Dextrose/ Fat Emulsion Intravenous 1,400 ml @ 58.333 mls/ hr TPN CONT IV ; Start 08/12/19 at 22:00; Stop 08/13/19 at 21:59 Sodium Chloride 100 meq/Potassium Chloride 40 meq/ Magnesium Sulfate 20 meq/Calcium Gluconate 10 meq/ Multivitamins 10 ml/Chromium/ Copper/Manganese/ Seleni/Zn 0.5 ml/ Insulin Human Regular 35 unit/ Total Parenteral Nutrition/Amino Acids/Dextrose/ Fat Emulsion Intravenous 1,400 ml @ 58.333 mls/ hr TPN CONT IV Last administered on 08/12/19at 00:06; Start 08/11/19 at 22:00; Stop 08/12/19 at 21:59 Comment Review of Relevant I have reviewed the following items kolby (where applicable) has been applied. ZANDER ZUÑIGA MD Aug 12, 2019 13:09
[2019-08-12] MEDS: DAPTOmycin (GENERIC) IVPB 430 MG in IV NORMAL SALINE 50ML 50 ML IV SCH ×2 (13:46→15:07)
--- NOTE | 2019-08-12 14:34 | PDOC ---
SURGICAL PROGRESS NOTE Subjective Pt sitting up in chair on vent, responsive Vital Signs Vital Signs Date Time Temp Pulse Resp B/P (MAP) Pulse Ox O2 Delivery O2 Flow Rate FiO2 08/12/19 11:29 98 Ventilator 08/12/19 06:00 98.0 106 141/77 (98) 98.0 08/12/19 03:20 23 6.0 I&O Intake and Output 08/12/19 07:00 Intake Total 2067 ml Output Total 2950 ml Balance -883 ml Intake Oral 0 ml IV Total 1163 ml Blood Product IV Normal Saline Flush 904 ml Output Urine Total 2825 ml Gastric Drainage Total 125 ml General: Alert, No acute distress Abdomen: Soft, Other (mild TTP) Labs Laboratory Tests Test 08/10/19 18:19 08/11/19 00:14 08/11/19 06:20 08/11/19 06:23 Glucose (Fingerstick) 146 mg/dL (70-99) 141 mg/dL (70-99) 134 mg/dL (70-99) Sodium Level 144 mmol/L (136-145) Potassium Level 3.6 mmol/L (3.5-5.1) Chloride Level 107 mmol/L (98-107) Carbon Dioxide Level 26 mmol/L (21-32) Anion Gap 11 (6-14) Blood Urea Nitrogen 78 mg/dL (7-20) Creatinine 1.4 mg/dL (0.6-1.0) Estimated GFR (Cockcroft-Gault) 40.0 Glucose Level 146 mg/dL (70-99) Calcium Level 9.4 mg/dL (8.5-10.1) Phosphorus Level 3.8 mg/dL (2.6-4.7) Triglycerides Level 148 mg/dL (0-150) Test 08/11/19 06:35 08/11/19 12:21 08/11/19 17:25 08/12/19 00:11 White Blood Count 15.6 x10^3/uL (4.0-11.0) Red Blood Count 3.19 x10^6/uL (3.50-5.40) Hemoglobin 9.4 g/dL (12.0-15.5) Hematocrit 28.6 % (36.0-47.0) Mean Corpuscular Volume 90 fL (79-100) Mean Corpuscular Hemoglobin 30 pg (25-35) Mean Corpuscular Hemoglobin Concent 33 g/dL (31-37) Red Cell Distribution Width 18.4 % (11.5-14.5) Platelet Count 343 x10^3/uL (140-400) Neutrophils (%) (Auto) 82 % (31-73) Lymphocytes (%) (Auto) 10 % (24-48) Monocytes (%) (Auto) 8 % (0-9) Eosinophils (%) (Auto) 0 % (0-3) Basophils (%) (Auto) 0 % (0-3) Neutrophils # (Auto) 12.8 x10^3/uL (1.8-7.7) Lymphocytes # (Auto) 1.5 x10^3/uL (1.0-4.8) Monocytes # (Auto) 1.3 x10^3/uL (0.0-1.1) Eosinophils # (Auto) 0.0 x10^3/uL (0.0-0.7) Basophils # (Auto) 0.0 x10^3/uL (0.0-0.2) Glucose (Fingerstick) 146 mg/dL (70-99) 130 mg/dL (70-99) 137 mg/dL (70-99) Test 08/12/19 06:20 08/12/19 06:36 08/12/19 13:11 White Blood Count 11.5 x10^3/uL (4.0-11.0) Red Blood Count 2.75 x10^6/uL (3.50-5.40) Hemoglobin 8.2 g/dL (12.0-15.5) Hematocrit 25.0 % (36.0-47.0) Mean Corpuscular Volume 91 fL (79-100) Mean Corpuscular Hemoglobin 30 pg (25-35) Mean Corpuscular Hemoglobin Concent 33 g/dL (31-37) Red Cell Distribution Width 18.6 % (11.5-14.5) Platelet Count 287 x10^3/uL (140-400) Neutrophils (%) (Auto) 83 % (31-73) Lymphocytes (%) (Auto) 8 % (24-48) Monocytes (%) (Auto) 8 % (0-9) Eosinophils (%) (Auto) 0 % (0-3) Basophils (%) (Auto) 0 % (0-3) Neutrophils # (Auto) 9.5 x10^3/uL (1.8-7.7) Lymphocytes # (Auto) 0.9 x10^3/uL (1.0-4.8) Monocytes # (Auto) 0.9 x10^3/uL (0.0-1.1) Eosinophils # (Auto) 0.0 x10^3/uL (0.0-0.7) Basophils # (Auto) 0.0 x10^3/uL (0.0-0.2) Sodium Level 151 mmol/L (136-145) Potassium Level 3.4 mmol/L (3.5-5.1) Chloride Level 115 mmol/L (98-107) Carbon Dioxide Level 24 mmol/L (21-32) Anion Gap 12 (6-14) Blood Urea Nitrogen 83 mg/dL (7-20) Creatinine 1.3 mg/dL (0.6-1.0) Estimated GFR (Cockcroft-Gault) 43.5 Glucose Level 142 mg/dL (70-99) Calcium Level 8.9 mg/dL (8.5-10.1) Phosphorus Level 3.9 mg/dL (2.6-4.7) Magnesium Level 2.1 mg/dL (1.8-2.4) Glucose (Fingerstick) 121 mg/dL (70-99) 163 mg/dL (70-99) Laboratory Tests Test 08/11/19 17:25 08/12/19 00:11 08/12/19 06:20 08/12/19 06:36 Glucose (Fingerstick) 130 mg/dL (70-99) 137 mg/dL (70-99) 121 mg/dL (70-99) White Blood Count 11.5 x10^3/uL (4.0-11.0) Red Blood Count 2.75 x10^6/uL (3.50-5.40) Hemoglobin 8.2 g/dL (12.0-15.5) Hematocrit 25.0 % (36.0-47.0) Mean Corpuscular Volume 91 fL (79-100) Mean Corpuscular Hemoglobin 30 pg (25-35) Mean Corpuscular Hemoglobin Concent 33 g/dL (31-37) Red Cell Distribution Width 18.6 % (11.5-14.5) Platelet Count 287 x10^3/uL (140-400) Neutrophils (%) (Auto) 83 % (31-73) Lymphocytes (%) (Auto) 8 % (24-48) Monocytes (%) (Auto) 8 % (0-9) Eosinophils (%) (Auto) 0 % (0-3) Basophils (%) (Auto) 0 % (0-3) Neutrophils # (Auto) 9.5 x10^3/uL (1.8-7.7) Lymphocytes # (Auto) 0.9 x10^3/uL (1.0-4.8) Monocytes # (Auto) 0.9 x10^3/uL (0.0-1.1) Eosinophils # (Auto) 0.0 x10^3/uL (0.0-0.7) Basophils # (Auto) 0.0 x10^3/uL (0.0-0.2) Sodium Level 151 mmol/L (136-145) Potassium Level 3.4 mmol/L (3.5-5.1) Chloride Level 115 mmol/L (98-107) Carbon Dioxide Level 24 mmol/L (21-32) Anion Gap 12 (6-14) Blood Urea Nitrogen 83 mg/dL (7-20) Creatinine 1.3 mg/dL (0.6-1.0) Estimated GFR (Cockcroft-Gault) 43.5 Glucose Level 142 mg/dL (70-99) Calcium Level 8.9 mg/dL (8.5-10.1) Phosphorus Level 3.9 mg/dL (2.6-4.7) Magnesium Level 2.1 mg/dL (1.8-2.4) Test 08/12/19 13:11 Glucose (Fingerstick) 163 mg/dL (70-99) Problem List Problems Medical Problems: (1) Acute pancreatitis Status: Acute (2) Cholelithiasis Status: Acute Assessment/Plan will plan laparoscopic versus open cholecystectomy with cholangiogram and pancreatic necrosectomy on 08/14 R/R/B/A d/w pt and pt's daughter via phone extensively. Other systems appeared to be stabilized d/w ID DAVON SIMMS MD Aug 12, 2019 14:34
[2019-08-12] MEDS ORDERED: IV NORMAL SALINE 1000ML BAG 1,000 ML IV PRN ×2 (15:31)
[2019-08-12] MEDS ORDERED: DIALYSIS PATIENT. MC PRN (15:45)
[2019-08-12] MEDS ORDERED: diphenhydrAMINE 50 MG/ML VIAL IV PRN ×2 (15:45)
--- NOTE | 2019-08-12 19:20 | NUR ---
Pt back from dialysis. Is awake and responsive but mouths that she is very tired. VSS.
[2019-08-12] MEDS ORDERED: [UNRECOGNIZED DRUG - OTHER] IV SCH ×10 (22:00)
[2019-08-12] MEDS ORDERED: AMINO ACID IV SCH ×20 (22:00)
[2019-08-12] MEDS ORDERED: [UNRECOGNIZED DRUG - OTHER] IV SCH ×10 (22:00)
[2019-08-12] MEDS ORDERED: TOTAL PARENTERAL NUTRITION IV SCH ×20 (22:00)
[2019-08-12] MEDS ORDERED: DEXTROSE 70% IV SCH ×20 (22:00)
[2019-08-13] VITALS (24 sets, daily range): BP systolic 96–196; BP diastolic 54–96
[2019-08-13] MEDS: DEXMEDETOMIDINE 400 MCG in IV NORMAL SALINE 100ML 96 ML IV PRN ×8 (00:51→20:58)
[2019-08-13] MEDS: fentaNYL PF VIAL 100 MCG/2 ML VIAL IVP PRN ×5 (01:15→22:21)
[2019-08-13] MEDS: INSULIN LISPRO 300 UNITS/3 ML VIAL. SQ SCH ×4 (05:42→17:54)
[2019-08-13 06:18] LABS: BASO % 0 % (0-3); EOS # 0.1 x10^3/uL (0.0-0.7); EOS % 1 % (0-3); HEMATOCRIT 31.7 % (36.0-47.0); HEMOGLOBIN 10.8 g/dL (12.0-15.5); LYMPH # 1.2 x10^3/uL (1.0-4.8); LYMPH % 13 % (24-48); MEAN CORPUSCULAR HEMOGLOBIN 31 pg (25-35); MEAN CORPUSCULAR HGB CONC 34 g/dL (31-37); MEAN CORPUSCULAR VOLUME 91 fL (79-100); MONO # 0.7 x10^3/uL (0.0-1.1); MONO % 8 % (0-9); NEUT # 7.2 x10^3/uL (1.8-7.7); NEUT % 78 % (31-73); PLATELET COUNT 237 x10^3/uL (140-400); RED CELL DISTRIBUTION WIDTH 18.2 % (11.5-14.5); WHITE BLOOD COUNT 9.2 x10^3/uL (4.0-11.0)
[2019-08-13] MEDS: PANTOPRAZOLE IV PUSH 40 MG VIAL. IVP SCH (07:43)
[2019-08-13] MEDS: MICAFUNGIN 100 MG in IV DEXTROSE 5% 100ML 100 ML IV SCH (08:34)
[2019-08-13] MEDS: HEPARIN for SUB-Q USE 5,000 UNIT/ML VIAL. SQ SCH ×2 (08:35→20:58)
--- NOTE | 2019-08-13 09:28 | NUR ---
Per phone conversation between REY Duarte and Liat Monahan RN, TDC is to be pulled today, and if new dialysis cath should be needed they will place during surgery on Thursday morning.
[2019-08-13] MEDS: MEROPENEM 500 MG in IV NORMAL SALINE 50ML 50 ML IV SCH ×2 (09:41→21:33)
--- NOTE | 2019-08-13 10:49 | PDOC ---
PULMONARY PROGRESS NOTES Subjective Patient intubated on 07/10 , s/p trach 4/6, on vent tolerated ps for 8 hrs yesterday, on predecex, small trach secretion, t max 101 Vitals Vital Signs Date Time Temp Pulse Resp B/P (MAP) Pulse Ox O2 Delivery O2 Flow Rate FiO2 08/13/19 09:00 79 26 108/65 (79) 98 Ventilator 08/13/19 08:00 101.0 101.0 08/12/19 14:05 6.0 Comments ros unable to obtain on vent General: Alert HEENT: Other (nc at perrl nose clear nech trach site ok no lad no thyromegaly) Lungs: Crackles, Other (dimished in BLL nc at perrl nose clear neck trach site ok no lad no thyromegaly) Cardiovascular: S1, S2 Abdomen: Soft, Non-tender, Other (distended) Neuro Exam: Alert Extremities: Other (+3 generalized edema ) Skin: Warm, Dry Labs Laboratory Tests Test 08/11/19 12:21 08/11/19 17:25 08/12/19 00:11 08/12/19 06:20 Glucose (Fingerstick) 146 mg/dL (70-99) 130 mg/dL (70-99) 137 mg/dL (70-99) White Blood Count 11.5 x10^3/uL (4.0-11.0) Red Blood Count 2.75 x10^6/uL (3.50-5.40) Hemoglobin 8.2 g/dL (12.0-15.5) Hematocrit 25.0 % (36.0-47.0) Mean Corpuscular Volume 91 fL (79-100) Mean Corpuscular Hemoglobin 30 pg (25-35) Mean Corpuscular Hemoglobin Concent 33 g/dL (31-37) Red Cell Distribution Width 18.6 % (11.5-14.5) Platelet Count 287 x10^3/uL (140-400) Neutrophils (%) (Auto) 83 % (31-73) Lymphocytes (%) (Auto) 8 % (24-48) Monocytes (%) (Auto) 8 % (0-9) Eosinophils (%) (Auto) 0 % (0-3) Basophils (%) (Auto) 0 % (0-3) Neutrophils # (Auto) 9.5 x10^3/uL (1.8-7.7) Lymphocytes # (Auto) 0.9 x10^3/uL (1.0-4.8) Monocytes # (Auto) 0.9 x10^3/uL (0.0-1.1) Eosinophils # (Auto) 0.0 x10^3/uL (0.0-0.7) Basophils # (Auto) 0.0 x10^3/uL (0.0-0.2) Sodium Level 151 mmol/L (136-145) Potassium Level 3.4 mmol/L (3.5-5.1) Chloride Level 115 mmol/L (98-107) Carbon Dioxide Level 24 mmol/L (21-32) Anion Gap 12 (6-14) Blood Urea Nitrogen 83 mg/dL (7-20) Creatinine 1.3 mg/dL (0.6-1.0) Estimated GFR (Cockcroft-Gault) 43.5 Glucose Level 142 mg/dL (70-99) Calcium Level 8.9 mg/dL (8.5-10.1) Phosphorus Level 3.9 mg/dL (2.6-4.7) Magnesium Level 2.1 mg/dL (1.8-2.4) Test 08/12/19 06:36 08/12/19 13:11 08/13/19 00:54 08/13/19 05:37 Glucose (Fingerstick) 121 mg/dL (70-99) 163 mg/dL (70-99) 121 mg/dL (70-99) 123 mg/dL (70-99) Test 08/13/19 06:00 White Blood Count 9.2 x10^3/uL (4.0-11.0) Red Blood Count 3.50 x10^6/uL (3.50-5.40) Hemoglobin 10.8 g/dL (12.0-15.5) Hematocrit 31.7 % (36.0-47.0) Mean Corpuscular Volume 91 fL (79-100) Mean Corpuscular Hemoglobin 31 pg (25-35) Mean Corpuscular Hemoglobin Concent 34 g/dL (31-37) Red Cell Distribution Width 18.2 % (11.5-14.5) Platelet Count 237 x10^3/uL (140-400) Neutrophils (%) (Auto) 78 % (31-73) Lymphocytes (%) (Auto) 13 % (24-48) Monocytes (%) (Auto) 8 % (0-9) Eosinophils (%) (Auto) 1 % (0-3) Basophils (%) (Auto) 0 % (0-3) Neutrophils # (Auto) 7.2 x10^3/uL (1.8-7.7) Lymphocytes # (Auto) 1.2 x10^3/uL (1.0-4.8) Monocytes # (Auto) 0.7 x10^3/uL (0.0-1.1) Eosinophils # (Auto) 0.1 x10^3/uL (0.0-0.7) Basophils # (Auto) 0.0 x10^3/uL (0.0-0.2) Laboratory Tests Test 08/12/19 13:11 08/13/19 00:54 08/13/19 05:37 08/13/19 06:00 Glucose (Fingerstick) 163 mg/dL (70-99) 121 mg/dL (70-99) 123 mg/dL (70-99) White Blood Count 9.2 x10^3/uL (4.0-11.0) Red Blood Count 3.50 x10^6/uL (3.50-5.40) Hemoglobin 10.8 g/dL (12.0-15.5) Hematocrit 31.7 % (36.0-47.0) Mean Corpuscular Volume 91 fL (79-100) Mean Corpuscular Hemoglobin 31 pg (25-35) Mean Corpuscular Hemoglobin Concent 34 g/dL (31-37) Red Cell Distribution Width 18.2 % (11.5-14.5) Platelet Count 237 x10^3/uL (140-400) Neutrophils (%) (Auto) 78 % (31-73) Lymphocytes (%) (Auto) 13 % (24-48) Monocytes (%) (Auto) 8 % (0-9) Eosinophils (%) (Auto) 1 % (0-3) Basophils (%) (Auto) 0 % (0-3) Neutrophils # (Auto) 7.2 x10^3/uL (1.8-7.7) Lymphocytes # (Auto) 1.2 x10^3/uL (1.0-4.8) Monocytes # (Auto) 0.7 x10^3/uL (0.0-1.1) Eosinophils # (Auto) 0.1 x10^3/uL (0.0-0.7) Basophils # (Auto) 0.0 x10^3/uL (0.0-0.2) Medications Active Scripts Medications Dose Route/Sig Max Daily Dose Days Date Category Bisoprolol Fumarate 5 Mg Tablet 10 Mg PO DAILY 07/04/19 Reported Comments cxr reviewed. Impression . IMPRESSION: 1. Acute hypoxemic respiratory failure secondary to ARDS status post trach, 2. Gallstone pancreatitis 3. Severe metabolic acidosis.stable 4. Acute kidney injury-stable, ON HD-- continue to improve 5. Acute gallstone pancreatitis. 6. Hypoalbuminemia. 7. Moderate persistent effusions 8. Fever-persist. Per ID, per surgery 9. Chronic anemia 10. Covid 19 testing negative 11. Moderate to large ascites-S/P paracentisis S/P paracentisis with 4 liters removed on 08/03/19 Plan . cont vent support, setting reviewed. weaning as tolerated Patient still febrile, surgery next week PT hep sq and protonix for prophylaxis Follow surgery recs Follow ID rec, abx per id Follow nephrology recs Nutritional support per surgery continue TPN for nutrition HD catheter to be removed today DVT/GI PPX d/w RN/RT TEN WHITFIELD MD Aug 13, 2019 10:49
--- NOTE | 2019-08-13 10:49 | PDOC ---
PULMONARY PROGRESS NOTES Subjective disregard this note Patient intubated on 07/10 , s/p trach /, on vent tolerated ps for 8 hrs yesterday, on predecex, small trach secretion Vitals Vital Signs Date Time Temp Pulse Resp B/P (MAP) Pulse Ox O2 Delivery O2 Flow Rate FiO2 08/13/19 09:00 79 26 108/65 (79) 98 Ventilator 08/13/19 08:00 101.0 101.0 08/12/19 14:05 6.0 Comments ros unable to obtain on vent Lungs: Crackles, Other (dimished in BLL nc at perrl nose clear neck trach site ok no lad no thyromegaly) Cardiovascular: S1, S2 Abdomen: Soft, Non-tender, Other (distended) Extremities: Other (+3 generalized edema ) Skin: Warm, Dry Labs Laboratory Tests Test 08/11/19 12:21 08/11/19 17:25 08/12/19 00:11 08/12/19 06:20 Glucose (Fingerstick) 146 mg/dL (70-99) 130 mg/dL (70-99) 137 mg/dL (70-99) White Blood Count 11.5 x10^3/uL (4.0-11.0) Red Blood Count 2.75 x10^6/uL (3.50-5.40) Hemoglobin 8.2 g/dL (12.0-15.5) Hematocrit 25.0 % (36.0-47.0) Mean Corpuscular Volume 91 fL (79-100) Mean Corpuscular Hemoglobin 30 pg (25-35) Mean Corpuscular Hemoglobin Concent 33 g/dL (31-37) Red Cell Distribution Width 18.6 % (11.5-14.5) Platelet Count 287 x10^3/uL (140-400) Neutrophils (%) (Auto) 83 % (31-73) Lymphocytes (%) (Auto) 8 % (24-48) Monocytes (%) (Auto) 8 % (0-9) Eosinophils (%) (Auto) 0 % (0-3) Basophils (%) (Auto) 0 % (0-3) Neutrophils # (Auto) 9.5 x10^3/uL (1.8-7.7) Lymphocytes # (Auto) 0.9 x10^3/uL (1.0-4.8) Monocytes # (Auto) 0.9 x10^3/uL (0.0-1.1) Eosinophils # (Auto) 0.0 x10^3/uL (0.0-0.7) Basophils # (Auto) 0.0 x10^3/uL (0.0-0.2) Sodium Level 151 mmol/L (136-145) Potassium Level 3.4 mmol/L (3.5-5.1) Chloride Level 115 mmol/L (98-107) Carbon Dioxide Level 24 mmol/L (21-32) Anion Gap 12 (6-14) Blood Urea Nitrogen 83 mg/dL (7-20) Creatinine 1.3 mg/dL (0.6-1.0) Estimated GFR (Cockcroft-Gault) 43.5 Glucose Level 142 mg/dL (70-99) Calcium Level 8.9 mg/dL (8.5-10.1) Phosphorus Level 3.9 mg/dL (2.6-4.7) Magnesium Level 2.1 mg/dL (1.8-2.4) Test 08/12/19 06:36 08/12/19 13:11 08/13/19 00:54 08/13/19 05:37 Glucose (Fingerstick) 121 mg/dL (70-99) 163 mg/dL (70-99) 121 mg/dL (70-99) 123 mg/dL (70-99) Test 08/13/19 06:00 White Blood Count 9.2 x10^3/uL (4.0-11.0) Red Blood Count 3.50 x10^6/uL (3.50-5.40) Hemoglobin 10.8 g/dL (12.0-15.5) Hematocrit 31.7 % (36.0-47.0) Mean Corpuscular Volume 91 fL (79-100) Mean Corpuscular Hemoglobin 31 pg (25-35) Mean Corpuscular Hemoglobin Concent 34 g/dL (31-37) Red Cell Distribution Width 18.2 % (11.5-14.5) Platelet Count 237 x10^3/uL (140-400) Neutrophils (%) (Auto) 78 % (31-73) Lymphocytes (%) (Auto) 13 % (24-48) Monocytes (%) (Auto) 8 % (0-9) Eosinophils (%) (Auto) 1 % (0-3) Basophils (%) (Auto) 0 % (0-3) Neutrophils # (Auto) 7.2 x10^3/uL (1.8-7.7) Lymphocytes # (Auto) 1.2 x10^3/uL (1.0-4.8) Monocytes # (Auto) 0.7 x10^3/uL (0.0-1.1) Eosinophils # (Auto) 0.1 x10^3/uL (0.0-0.7) Basophils # (Auto) 0.0 x10^3/uL (0.0-0.2) Laboratory Tests Test 08/12/19 13:11 08/13/19 00:54 08/13/19 05:37 08/13/19 06:00 Glucose (Fingerstick) 163 mg/dL (70-99) 121 mg/dL (70-99) 123 mg/dL (70-99) White Blood Count 9.2 x10^3/uL (4.0-11.0) Red Blood Count 3.50 x10^6/uL (3.50-5.40) Hemoglobin 10.8 g/dL (12.0-15.5) Hematocrit 31.7 % (36.0-47.0) Mean Corpuscular Volume 91 fL (79-100) Mean Corpuscular Hemoglobin 31 pg (25-35) Mean Corpuscular Hemoglobin Concent 34 g/dL (31-37) Red Cell Distribution Width 18.2 % (11.5-14.5) Platelet Count 237 x10^3/uL (140-400) Neutrophils (%) (Auto) 78 % (31-73) Lymphocytes (%) (Auto) 13 % (24-48) Monocytes (%) (Auto) 8 % (0-9) Eosinophils (%) (Auto) 1 % (0-3) Basophils (%) (Auto) 0 % (0-3) Neutrophils # (Auto) 7.2 x10^3/uL (1.8-7.7) Lymphocytes # (Auto) 1.2 x10^3/uL (1.0-4.8) Monocytes # (Auto) 0.7 x10^3/uL (0.0-1.1) Eosinophils # (Auto) 0.1 x10^3/uL (0.0-0.7) Basophils # (Auto) 0.0 x10^3/uL (0.0-0.2) Medications Active Scripts Medications Dose Route/Sig Max Daily Dose Days Date Category Bisoprolol Fumarate 5 Mg Tablet 10 Mg PO DAILY 07/04/19 Reported Impression . IMPRESSION: 1. Acute hypoxemic respiratory failure secondary to ARDS status post trach, 2. Gallstone pancreatitis 3. Severe metabolic acidosis.stable 4. Acute kidney injury-stable, ON HD-- continue to improve 5. Acute gallstone pancreatitis. 6. Hypoalbuminemia. 7. Moderate persistent effusions 8. Fever-persist. Per ID, per surgery 9. Chronic anemia 10. Covid 19 testing negative 11. Moderate to large ascites-S/P paracentisis S/P paracentisis with 4 liters removed on 08/03/19 Plan . Nothing new to add Patient still febrile, will continue same, apparently she may undergo surgery next week Pressure support trials as tolerated PT hep sq and protonix for prophylaxis Follow surgery recs Follow ID rec, abx per id Follow nephrology recs Nutritional support per surgery continue TPN for nutrition DVT/GI PPX d/w RN/RT TEN WHITFIELD MD Aug 13, 2019 10:49
--- NOTE | 2019-08-13 11:17 | PDOC ---
SURGICAL PROGRESS NOTE Subjective Pt awake on vent Vital Signs Vital Signs Date Time Temp Pulse Resp B/P (MAP) Pulse Ox O2 Delivery O2 Flow Rate FiO2 08/13/19 10:47 30 99 Ventilator 08/13/19 09:00 79 108/65 (79) 08/13/19 08:00 101.0 101.0 08/12/19 14:05 6.0 I&O Intake and Output 08/13/19 07:00 Intake Total 726 ml Output Total 2075 ml Balance -1349 ml Intake Oral 0 ml IV Total 726 ml Output Urine Total 2075 ml General: Alert, mild distress Abdomen: Soft, Other (mild TTP) Labs Laboratory Tests Test 08/11/19 12:21 08/11/19 17:25 08/12/19 00:11 08/12/19 06:20 Glucose (Fingerstick) 146 mg/dL (70-99) 130 mg/dL (70-99) 137 mg/dL (70-99) White Blood Count 11.5 x10^3/uL (4.0-11.0) Red Blood Count 2.75 x10^6/uL (3.50-5.40) Hemoglobin 8.2 g/dL (12.0-15.5) Hematocrit 25.0 % (36.0-47.0) Mean Corpuscular Volume 91 fL (79-100) Mean Corpuscular Hemoglobin 30 pg (25-35) Mean Corpuscular Hemoglobin Concent 33 g/dL (31-37) Red Cell Distribution Width 18.6 % (11.5-14.5) Platelet Count 287 x10^3/uL (140-400) Neutrophils (%) (Auto) 83 % (31-73) Lymphocytes (%) (Auto) 8 % (24-48) Monocytes (%) (Auto) 8 % (0-9) Eosinophils (%) (Auto) 0 % (0-3) Basophils (%) (Auto) 0 % (0-3) Neutrophils # (Auto) 9.5 x10^3/uL (1.8-7.7) Lymphocytes # (Auto) 0.9 x10^3/uL (1.0-4.8) Monocytes # (Auto) 0.9 x10^3/uL (0.0-1.1) Eosinophils # (Auto) 0.0 x10^3/uL (0.0-0.7) Basophils # (Auto) 0.0 x10^3/uL (0.0-0.2) Sodium Level 151 mmol/L (136-145) Potassium Level 3.4 mmol/L (3.5-5.1) Chloride Level 115 mmol/L (98-107) Carbon Dioxide Level 24 mmol/L (21-32) Anion Gap 12 (6-14) Blood Urea Nitrogen 83 mg/dL (7-20) Creatinine 1.3 mg/dL (0.6-1.0) Estimated GFR (Cockcroft-Gault) 43.5 Glucose Level 142 mg/dL (70-99) Calcium Level 8.9 mg/dL (8.5-10.1) Phosphorus Level 3.9 mg/dL (2.6-4.7) Magnesium Level 2.1 mg/dL (1.8-2.4) Test 08/12/19 06:36 08/12/19 13:11 08/13/19 00:54 08/13/19 05:37 Glucose (Fingerstick) 121 mg/dL (70-99) 163 mg/dL (70-99) 121 mg/dL (70-99) 123 mg/dL (70-99) Test 08/13/19 06:00 White Blood Count 9.2 x10^3/uL (4.0-11.0) Red Blood Count 3.50 x10^6/uL (3.50-5.40) Hemoglobin 10.8 g/dL (12.0-15.5) Hematocrit 31.7 % (36.0-47.0) Mean Corpuscular Volume 91 fL (79-100) Mean Corpuscular Hemoglobin 31 pg (25-35) Mean Corpuscular Hemoglobin Concent 34 g/dL (31-37) Red Cell Distribution Width 18.2 % (11.5-14.5) Platelet Count 237 x10^3/uL (140-400) Neutrophils (%) (Auto) 78 % (31-73) Lymphocytes (%) (Auto) 13 % (24-48) Monocytes (%) (Auto) 8 % (0-9) Eosinophils (%) (Auto) 1 % (0-3) Basophils (%) (Auto) 0 % (0-3) Neutrophils # (Auto) 7.2 x10^3/uL (1.8-7.7) Lymphocytes # (Auto) 1.2 x10^3/uL (1.0-4.8) Monocytes # (Auto) 0.7 x10^3/uL (0.0-1.1) Eosinophils # (Auto) 0.1 x10^3/uL (0.0-0.7) Basophils # (Auto) 0.0 x10^3/uL (0.0-0.2) Laboratory Tests Test 08/12/19 13:11 08/13/19 00:54 08/13/19 05:37 08/13/19 06:00 Glucose (Fingerstick) 163 mg/dL (70-99) 121 mg/dL (70-99) 123 mg/dL (70-99) White Blood Count 9.2 x10^3/uL (4.0-11.0) Red Blood Count 3.50 x10^6/uL (3.50-5.40) Hemoglobin 10.8 g/dL (12.0-15.5) Hematocrit 31.7 % (36.0-47.0) Mean Corpuscular Volume 91 fL (79-100) Mean Corpuscular Hemoglobin 31 pg (25-35) Mean Corpuscular Hemoglobin Concent 34 g/dL (31-37) Red Cell Distribution Width 18.2 % (11.5-14.5) Platelet Count 237 x10^3/uL (140-400) Neutrophils (%) (Auto) 78 % (31-73) Lymphocytes (%) (Auto) 13 % (24-48) Monocytes (%) (Auto) 8 % (0-9) Eosinophils (%) (Auto) 1 % (0-3) Basophils (%) (Auto) 0 % (0-3) Neutrophils # (Auto) 7.2 x10^3/uL (1.8-7.7) Lymphocytes # (Auto) 1.2 x10^3/uL (1.0-4.8) Monocytes # (Auto) 0.7 x10^3/uL (0.0-1.1) Eosinophils # (Auto) 0.1 x10^3/uL (0.0-0.7) Basophils # (Auto) 0.0 x10^3/uL (0.0-0.2) Problem List Problems Medical Problems: (1) Acute pancreatitis Status: Acute (2) Cholelithiasis Status: Acute Assessment/Plan severe pancreatitis. plan OR on 08/14 DAVON SIMMS MD Aug 13, 2019 11:17
--- NOTE | 2019-08-13 11:21 | PDOC ---
[facility] [facility] PROGRESS NOTE Chief Complaint Chief Complaint Respiratory failure requiring mechanical ventilation (on vent since 07/10) Tracheostomy bilateral pleural effusions/pulm edema Sepsis Severe Acute gallstone pancreatitis (not a surgical candidate at this time) with necrosis Acute kidney failure now requiring dialysis Salpingitis Gallstones (Calculus of gallbladder with acute cholecystitis without obstruction) HTN Leukocytosis Hypoxia Uterine fibroid Intractable pain Intractable nausea Covid 19 negative. Acute on chronic anemia EEG: No seizure activity. ESRD on HD Hyperglycemia, persistently in 200s History of Present Illness History of Present Illness 08-13-2019 Patient seen and examined in the ICU She remains mechanically ventilated via tracheostomy AC/18/4 50/30% She is on IV TPN IV Precedex Antibiotics include meropenem and micafungin Chart reviewed Discussed with RN room She remains critically ill 08-12-2019 Patient seen and examined in the ICU She remains mechanically ventilated Spontaneous respirations with 25 of pressure support 30% FiO2 NG to suction She is on TPN She is sedated with Precedex Discussed with RN Chart reviewed She remains critically ill 08-11-2019 Patient seen and examined in the ICU She remains mechanically ventilated AC/18/4 50/30% FiO2 Chart reviewed Discussed with RN She is critically ill 08-10-2019 Patient seen and examined in the ICU She has a tracheostomy AC/18/4 50/30% Chart reviewed Discussed with RN She remains extremely critically ill 08-09-2019 Patient seen in ICU room 116 she is currently on dialysis Tries to mumble is grabbing at her face with her left hand She is extremely weak cannot communicate well She is swollen Chart reviewed Discussed with RN Very critically ill 08-08-2019 patient seen and examined in the ICU She is on the vent via tracheostomy AC/14/4 50/35% Has IV TPN NG to suction Wearing mitts for patient safety Still seems encephalopathic Chart reviewed Discussed with RN She remains critically ill Ms Diaz is a 48yo F w/ PMHx HTN, prediabetes who presented to the emergency room with complaints of abdominal pain on 07/04/2019. Found with Lipase 69307, AST 401, ALT 249, Bilirubin 1.4. CT abdomen confirms pancreatic inflammation, peripancreatic fluid and inflammatory changes around the pancreas consistent with pancreatitis. Cholelithiasis and 1.4cm uterine fibroid as well as possible left salpingitis. Admitted for further care GI, General surgery, ID, Pulm consulted. 07/04: No urine output. Added dilaudid for pain, PICC placed per IR. Renal US negative.Seen bedside in ICU, given 2L additional NSS and albumin infusion. Still hypotensive, started on levophed. Repeat CT abdomen w/ necrosis. 07/05: O2 saturation 87% on nasal cannula oxygen. Dialysis catheter per nephrology 07/06: She is now on BiPAP appears more ill, now on dialysis 07/07: Seen on BiPAP. Her mother and another family member are present and seemed to be good support for her. Currently on dialysis. Appears critically ill 07/08: Overnight Tmax 101.7 , still on BiPAP FiO2 40%, still on low dose Levophed gtt, TPN initiated. On dialysis 07/24: Tracheostomy 07/30: S/p tracheostomy on vent spontaneous respirations with 5 of pressure support 35% FiO2, rectal tube and a Lind, off pressors 07/31: Off pressors. Seen on dialysis this morning. BUN 80. Tracking with her eyes. Still on vent via trach. 08/01: BUN 68, Cr 1.7. Temp 100.2F axillary. WBC 9.8. Still on vent via trach. Tracking reasonably well. In obvious discomfort. Removed PICC and CVC LIJ and replaced. Tips sent for culture. CT chest/abd/pelvis with bilateral pleural effusion and ascites. 08/02: Renal function stable. Still on vent. More interactive today. Miming wish for food. Plan discussed for thoracentesis/paracentesis with daughters today. They were under impression patient was doing worse due to a miscommunication which has been clarified over the phone. 4.3L removed. 08/03: BUN 88, Cr 1.8. Much more interactive today. Appears more comfortable today. 08/04: Febrile overnight 101.8F. More interactive, still on vent. Asking for ice by miming. 08/05: Afebrile overnight. TMax last 24 hours 100.6F. Hb 7.1. Interactive when awake. Afebrile. Hb 7. Not tolerating vent wean. Very interactive, on low dose precedex. Excellent UOP over the past 72 hours Plan: Cont vent weaning, dialysis Trach shield during day if ok with pulm. Would recommend ABG after 4 hours to r/o CO2 retention, however and still vent overnight Vitals/I&O Vitals/I&O: Vital Signs Date Time Temp Pulse Resp B/P (MAP) Pulse Ox O2 Delivery O2 Flow Rate FiO2 08/13/19 10:47 30 99 Ventilator 08/13/19 09:00 79 108/65 (79) 08/13/19 08:00 101.0 101.0 08/12/19 14:05 6.0 I & O 08/12/19 08/12/19 08/13/19 15:00 23:00 07:00 Intake Total 150 ml 576 ml Output Total 925 ml 545 ml 605 ml Balance -925 ml -395 ml -29 ml Physical Exam Physical Exam: GENERAL: Sleeping awakens barely on Precedex HEENT: Pupils equal, + NGT, oral cavity dry NECK: Trach/vent LUNGS: rhonchi HEART: S1, S2, regular ABDOMEN: Distended, tender, hypoactive BS, : Lind (08/01) EXTREMITIES: Generalized edema, no cyanosis, SCDs bilaterally DERMATOLOGIC: Warm and dry. No generalized rash. CENTRAL NERVOUS SYSTEM: Extremely weak trying to talk but unable to understand HDC & LIJ (08/01) clean General: Alert, mild distress Heart: Regular rate, Normal S1, Other (increased rate) Lungs: Crackles, Other (dimished in BLL nc at perrl nose clear neck trach site ok no lad no thyromegaly) Abdomen: Soft, Other (mild TTP) Extremities: Other (ANASARCA) Skin: Other (mottling noted to extremities ) Labs Labs: Laboratory Tests Test 08/12/19 13:11 08/13/19 00:54 08/13/19 05:37 08/13/19 06:00 Glucose (Fingerstick) 163 mg/dL (70-99) 121 mg/dL (70-99) 123 mg/dL (70-99) White Blood Count 9.2 x10^3/uL (4.0-11.0) Red Blood Count 3.50 x10^6/uL (3.50-5.40) Hemoglobin 10.8 g/dL (12.0-15.5) Hematocrit 31.7 % (36.0-47.0) Mean Corpuscular Volume 91 fL (79-100) Mean Corpuscular Hemoglobin 31 pg (25-35) Mean Corpuscular Hemoglobin Concent 34 g/dL (31-37) Red Cell Distribution Width 18.2 % (11.5-14.5) Platelet Count 237 x10^3/uL (140-400) Neutrophils (%) (Auto) 78 % (31-73) Lymphocytes (%) (Auto) 13 % (24-48) Monocytes (%) (Auto) 8 % (0-9) Eosinophils (%) (Auto) 1 % (0-3) Basophils (%) (Auto) 0 % (0-3) Neutrophils # (Auto) 7.2 x10^3/uL (1.8-7.7) Lymphocytes # (Auto) 1.2 x10^3/uL (1.0-4.8) Monocytes # (Auto) 0.7 x10^3/uL (0.0-1.1) Eosinophils # (Auto) 0.1 x10^3/uL (0.0-0.7) Basophils # (Auto) 0.0 x10^3/uL (0.0-0.2) Assessment and Plan Assessmemt and Plan Problems Medical Problems: (1) Acute pancreatitis Status: Acute (2) Cholelithiasis Status: Acute Respiratory failure requiring intubation Status post tracheostomy Severe Acute gallstone pancreatitis (she is not a surgical candidate as she is too ill) Acute kidney failure now requiring dialysis Salpingo--itis Gallstones (Calculus of gallbladder with acute cholecystitis without obstruction) HTN Leukocytosis Hypoxia Uterine fibroid Hypoxia with respiratory failure Intractable pain Intractable nausea Plan ICU monitoring Tracheostomy care NG suctioning Vent management per pulm. pressure support as tolerated Dialysis per nephro Merrem (07/26) and Zyvox (07/28) and micafungin Follow cultures Trach care Nutritional support When necessary levo fed Neuro following No plans for sx at present as she is to ill still Discharge disposition pending (? Eventual LTAC) She is still critically ill Prognosis very guarded but very very slowly improving? Total time 33 min Comment Review of Relevant I have reviewed the following items kolby (where applicable) has been applied. Medications: Current Medications Medications (Trade) Dose Ordered Sig/Yvon Route PRN Reason Start Time Stop Time Status Last Admin Dose Admin Sodium Acetate 50 meq/Potassium Acetate 55 meq/ Magnesium Sulfate 20 meq/Calcium Gluconate 10 meq/ Multivitamins 10 ml/Chromium/ Copper/Manganese/ Seleni/Zn 0.5 ml/ Insulin Human Regular 35 unit/ Total Parenteral Nutrition/Amino Acids/Dextrose/ Fat Emulsion Intravenous 1,800 ml @ 75 mls/hr TPN CONT IV 08/12/19 22:00 08/13/19 21:59 08/12/19 22:38 Hemodynamically unstable?: No Is patient in severe pain?: No Is NPO status required?: Yes BEBO KIRBY III DO Aug 13, 2019 11:21
--- NOTE | 2019-08-13 12:24 | PDOC ---
Infectious Disease Note Subjective Subjective Ongoing fever,101.0 Not feeling well, abd pain present Remains on vent via trach, TPN cont to be febrile ROS ROS unobtainable Vital Sign Vital Signs Vital Signs Date Time Temp Pulse Resp B/P (MAP) Pulse Ox O2 Delivery O2 Flow Rate FiO2 08/13/19 11:31 97 Ventilator 08/13/19 11:20 27 08/13/19 11:00 100 169/96 (120) 08/13/19 08:00 101.0 101.0 08/12/19 14:05 6.0 Physical Exam PHYSICAL EXAM GENERAL: Propped up in bed, weak appearing HEENT: Pupils equal, + NGT, oral cavity dry NECK: Trach/vent LUNGS: rhonchi HEART: S1, S2, regular ABDOMEN: Distended, tender, hypoactive BS, : Lind (08/01) EXTREMITIES: Generalized edema, no cyanosis, SCDs bilaterally DERMATOLOGIC: Warm and dry. No generalized rash. CENTRAL NERVOUS SYSTEM: Extremely weak trying to talk but unable to understand HDC & LIJ (08/01) clean Labs Lab Laboratory Tests Test 08/12/19 13:11 08/13/19 00:54 08/13/19 05:37 08/13/19 06:00 Glucose (Fingerstick) 163 mg/dL (70-99) 121 mg/dL (70-99) 123 mg/dL (70-99) White Blood Count 9.2 x10^3/uL (4.0-11.0) Red Blood Count 3.50 x10^6/uL (3.50-5.40) Hemoglobin 10.8 g/dL (12.0-15.5) Hematocrit 31.7 % (36.0-47.0) Mean Corpuscular Volume 91 fL (79-100) Mean Corpuscular Hemoglobin 31 pg (25-35) Mean Corpuscular Hemoglobin Concent 34 g/dL (31-37) Red Cell Distribution Width 18.2 % (11.5-14.5) Platelet Count 237 x10^3/uL (140-400) Neutrophils (%) (Auto) 78 % (31-73) Lymphocytes (%) (Auto) 13 % (24-48) Monocytes (%) (Auto) 8 % (0-9) Eosinophils (%) (Auto) 1 % (0-3) Basophils (%) (Auto) 0 % (0-3) Neutrophils # (Auto) 7.2 x10^3/uL (1.8-7.7) Lymphocytes # (Auto) 1.2 x10^3/uL (1.0-4.8) Monocytes # (Auto) 0.7 x10^3/uL (0.0-1.1) Eosinophils # (Auto) 0.1 x10^3/uL (0.0-0.7) Basophils # (Auto) 0.0 x10^3/uL (0.0-0.2) Test 08/13/19 12:02 Glucose (Fingerstick) 142 mg/dL (70-99) Micro CT A/P, 08/09 IMPRESSION: 1. Pancreas again appears diffusely enlarged and hypodense compatible with diffuse pancreatitis and pancreatic necrosis. 2. Extensive retroperitoneal fluid collections are again identified, slightly larger in size. 3. Moderate to large volume of abdominal and pelvic ascites is again identified. Mild generalized increase in fatty inflammation or anasarca. 4. Cholelithiasis with possible cholecystitis. 5. Moderate pleural effusions, may be slightly improved. Infiltrate/atelectasis in both lung bases. 6. Small hepatic low-density lesion is too small to characterize, may represent a small cyst, likely unchanged. Objective Assessment Leukocytosis 07/28 -improved Fever - New left IJ/Lind 08/01. PICC removed 08/01 -? pancreatitis. blood cults 07/28 neg. Urine - neg, Ascites s/p paracentesis 08/02 - 4300 ml. cultures neg Severe acute gallstone pancreatitis with necrosis -CT 08/01 necrotizing pancreatitis with fluid and phlegmon at the pancreas Hypotension off levaphed Joseph Pleural effusions JUANA requiring HD - s/p RIJ temporary dialysis catheter replacement, 07/20 Vent dependent respiratory failure -s/p Trach placement -lung opacities, COVID-19 neg Anasarca - worse Anemia - S/p PRBC 07/13 Hypocalcemia Prediabetes HTN Diarrhea, C. diff neg 07/10 Anemia - S/p PRBCs Plan Plan of Care cont merrem (07/26), micafungin, and dapto zyvox changed to dapto (08/09), to rule out serotonin sy causing fever Maintain aspiration precautions Removal of HDC underway Surgery on Thursday, 08/14 planned D/w nursing Critically ill Attending Co-Sign The patient was seen and interviewed as well as examined at the bedside. The chart was reviewed. The case was discussed. Agree with the plan of care. FRANCA HOBSON APRN Aug 13, 2019 12:24 KIMMY JONES MD Aug 13, 2019 12:34
[2019-08-13] MEDS: TPN PER PHARMACY MC PRN (12:39)
--- NOTE | 2019-08-13 12:43 | NUR ---
Pharmacy TPN Dosing Note S: SCOTT AVILA is a 48 year old F Currently receiving Central Continuous TPN started 07/06/19 B:Pertinent PMH: Necrotizing pancreatitis Height: 5 feet, 8 inches Weight: 108.9 kg Current diet: NPO LABS: Sodium: 151 Potassium: 3.4 Chloride: 115 Calcium: 8.9 Corrected Calcium: 9.94 Magnesium: 2.1 CO2: 24 SCr: 1.3 Glucose: 121-142 Albumin: 2.7 AST: 23 ALT: 11 TPN FORMULA: TPN TYPE: Central Continuous AMINO ACIDS: 125 gm DEXTROSE: 225 gm LIPIDS: 20 gm SODIUM CHLORIDE: - mEq SODIUM ACETATE: 50 mEq SODIUM PHOSPHATE: - mmol POTASSIUM CHLORIDE: - mEq POTASSIUM ACETATE: 55 mEq POTASSIUM PHOSPHATE: - mmol MAGNESIUM: 20 mEq CALCIUM: 10 mEq INSULIN: 35 units MULTIPLE VITAMIN: 10 ml TRACE ELEMENTS: 0.5 ml(s) TPN PLAN: No labs drawn today. No changes to TPN. BMP in AM. R: Continue TPN ABOVE. Will monitor electrolytes, glucose, and tolerance to TPN. CHRISTIAN VALLEJO [facility], 08/13/19 [id number]
[2019-08-13] MEDS: DAPTOmycin (GENERIC) IVPB 430 MG in IV NORMAL SALINE 50ML 50 ML IV SCH (13:17)
--- NOTE | 2019-08-13 16:46 | PDOC ---
PROGRESS NOTES Assessment Assessment Respiratory failure. Seizure. Metabolic encephalopathy. Fever, recurrent. Metabolic acidosis. Diffuse pulmonary infiltrate. Pleural effusion. Pancreatitis, necrotizing. Gallstone. Leukocytosis. Lymphopenia. Electrolytes imbalances. Hyperglycemia. DM. HTN. HLD. Anemia. Abnormal CXR. Obesity. Covid-19 1st test negative. RECOMMENDATIONS/PLAN: Continue life support in CCU at the present time. Keppra if has further seizures. Treat medical diseases. OT/PT. EEG: No seizure activity. OBJECTIVE: 08/13/19: No seizures reported over night. Past Medical History Cardiovascular: HTN, Hyperlipidemia Endocrine: Diabetes Family History Unobtainable. Social HistoryU not obtainable Allergies Coded Allergies: Codeine (Verified Allergy, Intermediate, rash, 07/04/19) ROS Unobtainable. NEUROLOGICAL EXAMINATION: Sleepiness but arousable. Not fully oriented to time, place and person. PERRL. EOMI not examined. CN: no acute focal findings. Muscle tone: Decreased. Muscle strength: 3- UE, 2 LE. DTR: 1-2 Plantar reflex: Neutral response bilaterally Gait: not able to walk. Sensory exam: no response to stimuli.. Not able to access cerebellar signs. F-T-N test not performed. Patient seen in CCU. Objective Objective Vital Signs Date Time Temp Pulse Resp B/P (MAP) Pulse Ox O2 Delivery O2 Flow Rate FiO2 08/13/19 15:53 100 Ventilator 08/13/19 15:42 32 08/13/19 15:00 95 145/78 (100) 08/13/19 12:00 101.3 101.3 08/12/19 14:05 6.0 Intake and Output 08/13/19 07:00 Intake Total 726 ml Output Total 2075 ml Balance -1349 ml Intake Oral 0 ml IV Total 726 ml Output Urine Total 2075 ml Vitals Signs Vitals VS - Last 72 Hours, by Label Date Time Temp Pulse Resp B/P (MAP) Pulse Ox O2 Delivery O2 Flow Rate FiO2 08/13/19 15:53 100 Ventilator 08/13/19 15:42 32 99 Ventilator 08/13/19 15:00 95 22 145/78 (100) 100 CPAP Trial 08/13/19 14:00 85 21 124/66 (85) 98 CPAP Trial 08/13/19 13:00 93 25 156/68 (97) 99 CPAP Trial 08/13/19 12:00 Mechanical Ventilator 08/13/19 12:00 101.3 124 34 196/90 (125) 97 CPAP Trial 101.3 08/13/19 11:31 97 Ventilator 08/13/19 11:20 27 98 Ventilator 08/13/19 11:00 100 29 169/96 (120) 97 Ventilator 08/13/19 10:47 30 99 Ventilator 08/13/19 10:00 78 27 112/72 (85) 98 Ventilator 08/13/19 09:00 79 26 108/65 (79) 98 Ventilator 08/13/19 08:00 101.0 82 28 109/67 (81) 97 Ventilator 101.0 08/13/19 08:00 Mechanical Ventilator 08/13/19 07:52 98 Ventilator 08/13/19 07:00 81 28 104/55 (71) 97 Ventilator 08/13/19 06:00 82 30 101/59 (73) 97 Ventilator 08/13/19 05:00 80 29 96/57 (70) 97 Ventilator 08/13/19 04:00 100.0 86 22 107/54 (71) 97 Ventilator 100.0 08/13/19 04:00 Mechanical Ventilator 08/13/19 03:00 80 27 96/57 (70) 96 Ventilator 08/13/19 02:00 86 30 111/55 (73) 97 Ventilator 08/13/19 01:15 22 97 Ventilator 08/13/19 01:00 86 30 119/58 (78) 96 Ventilator 08/13/19 00:40 99 Ventilator 08/13/19 00:03 100.0 82 22 107/57 (74) 98 Ventilator 100.0 08/13/19 00:00 Mechanical Ventilator 08/12/19 23:00 80 25 98/57 (71) 97 Ventilator 08/12/19 22:00 82 26 131/73 (92) 97 Ventilator 08/12/19 21:00 76 23 96 Ventilator 08/12/19 20:47 96 08/12/19 20:00 99.5 98 27 122/60 (80) 96 Ventilator 99.5 08/12/19 20:00 Mechanical Ventilator 08/12/19 19:00 88 24 131/66 (87) 100 Ventilator 08/12/19 18:11 100 TRILOGY 08/12/19 18:00 74 18 99/62 (74) 100 Ventilator 08/12/19 17:00 76 18 98/57 (71) 100 Ventilator 08/12/19 16:02 98 Ventilator 08/12/19 16:00 82 18 100/65 (77) 100 Ventilator 08/12/19 15:00 108 17 184/84 (117) 100 C-pap with PS 08/12/19 15:00 Mechanical Ventilator 08/12/19 14:05 100 6.0 08/12/19 14:00 98.9 112 30 139/78 (98) 100 C-pap with PS 98.9 08/12/19 12:00 100.2 90 21 134/75 (94) 98 C-pap with PS 100.2 08/12/19 12:00 Mechanical Ventilator 08/12/19 11:29 98 Ventilator 08/12/19 11:00 146 28 152/142 (145) 97 C-pap with PS 08/12/19 10:00 88 32 122/61 (81) 99 C-pap with PS 08/12/19 09:24 95 Ventilator 08/12/19 09:00 96 20 142/98 (113) 100 C-pap with PS 08/12/19 08:00 99.9 76 22 113/68 (83) 100 Ventilator 99.9 08/12/19 08:00 Mechanical Ventilator 08/12/19 07:28 100 Ventilator 08/12/19 07:00 90 20 140/71 (94) 100 Ventilator Laboratory Laboratory Laboratory Tests Test 08/13/19 00:54 08/13/19 05:37 08/13/19 06:00 08/13/19 12:02 Glucose (Fingerstick) 121 mg/dL (70-99) 123 mg/dL (70-99) 142 mg/dL (70-99) White Blood Count 9.2 x10^3/uL (4.0-11.0) Red Blood Count 3.50 x10^6/uL (3.50-5.40) Hemoglobin 10.8 g/dL (12.0-15.5) Hematocrit 31.7 % (36.0-47.0) Mean Corpuscular Volume 91 fL (79-100) Mean Corpuscular Hemoglobin 31 pg (25-35) Mean Corpuscular Hemoglobin Concent 34 g/dL (31-37) Red Cell Distribution Width 18.2 % (11.5-14.5) Platelet Count 237 x10^3/uL (140-400) Neutrophils (%) (Auto) 78 % (31-73) Lymphocytes (%) (Auto) 13 % (24-48) Monocytes (%) (Auto) 8 % (0-9) Eosinophils (%) (Auto) 1 % (0-3) Basophils (%) (Auto) 0 % (0-3) Neutrophils # (Auto) 7.2 x10^3/uL (1.8-7.7) Lymphocytes # (Auto) 1.2 x10^3/uL (1.0-4.8) Monocytes # (Auto) 0.7 x10^3/uL (0.0-1.1) Eosinophils # (Auto) 0.1 x10^3/uL (0.0-0.7) Basophils # (Auto) 0.0 x10^3/uL (0.0-0.2) Microbiology 08/03/19 Aerobic and Anaerobic Culture - Final, Complete 08/03/19 Anaerobic Culture Result 1 (ALEXANDRA) - Final, Complete 08/03/19 Aerobic Culture - Final, Complete 08/03/19 Aerobic Culture Result 1 (ALEXANDRA) - Final, Complete 08/03/19 Gram Stain - Final, Complete 08/03/19 Gram Stain Result 1 (ALEXANDRA) - Final, Complete 08/03/19 Gram Stain Result 2 (ALEXANDRA) - Final, Complete 08/02/19 Blood Culture - Final, Complete NO GROWTH AFTER 5 DAYS 07/31/19 Urine Culture - Final, Complete 07/31/19 Urine Culture Result 1 (ALEXANDRA) - Final, Complete Medication Medications Current Medications Daptomycin 430 mg/ Sodium Chloride 50 ml @ 100 mls/hr Q24H IV Last administered on 08/13/19at 13:17; Start 08/13/19 at 13:00 Fentanyl Citrate (Fentanyl 2ml Vial) 25 mcg PRN Q5MIN PRN IV MILD PAIN 1-3; Start 08/15/19 at 07:00; Stop 08/16/19 at 06:59 Fentanyl Citrate (Fentanyl 2ml Vial) 50 mcg PRN Q5MIN PRN IV MODERATE TO SEVERE PAIN; Start 08/15/19 at 07:00; Stop 08/16/19 at 06:59 Lidocaine HCl (Xylocaine-Mpf 1% 2ml Vial) 2 ml PRN 1X PRN ID PRIOR TO IV START; Start 08/15/19 at 07:00; Stop 08/16/19 at 06:59 Ondansetron HCl (Zofran) 4 mg PRN Q6HRS PRN IV NAUSEA/VOMITING; Start 08/15/19 at 07:00; Stop 08/16/19 at 06:59 Prochlorperazine Edisylate (Compazine) 5 mg PACU PRN PRN IV NAUSEA, MRX1; Start 08/15/19 at 07:00; Stop 08/16/19 at 06:59 Ringer's Solution 1,000 ml @ 30 mls/hr Q24H IV ; Start 08/15/19 at 07:00; Stop 08/15/19 at 18:59 Sodium Acetate 50 meq/Potassium Acetate 55 meq/ Magnesium Sulfate 20 meq/Calcium Gluconate 10 meq/ Multivitamins 10 ml/Chromium/ Copper/Manganese/ Seleni/Zn 0.5 ml/ Insulin Human Regular 35 unit/ Total Parenteral Nutrition/Amino Acids/Dextrose/ Fat Emulsion Intravenous 1,400 ml @ 58.333 mls/ hr TPN CONT IV ; Start 08/12/19 at 22:00; Stop 08/12/19 at 14:15; Status DC Sodium Acetate 50 meq/Potassium Acetate 55 meq/ Magnesium Sulfate 20 meq/Calcium Gluconate 10 meq/ Multivitamins 10 ml/Chromium/ Copper/Manganese/ Seleni/Zn 0.5 ml/ Insulin Human Regular 35 unit/ Total Parenteral Nutrition/Amino Acids/Dextrose/ Fat Emulsion Intravenous 1,800 ml @ 75 mls/hr TPN CONT IV Last administered on 08/12/19at 22:38; Start 08/12/19 at 22:00; Stop 08/13/19 at 21:59 Sodium Acetate 50 meq/Potassium Acetate 55 meq/ Magnesium Sulfate 20 meq/Calcium Gluconate 10 meq/ Multivitamins 10 ml/Chromium/ Copper/Manganese/ Seleni/Zn 0.5 ml/ Insulin Human Regular 35 unit/ Total Parenteral Nutrition/Amino Acids/Dextrose/ Fat Emulsion Intravenous 1,800 ml @ 75 mls/hr TPN CONT IV ; Start 08/13/19 at 22:00; Stop 08/14/19 at 21:59 Comment Review of Relevant I have reviewed the following items kolby (where applicable) has been applied. ZANDER ZUÑIGA MD Aug 13, 2019 16:46
[2019-08-13] MEDS ORDERED: [UNRECOGNIZED DRUG - OTHER] IV SCH ×10 (22:00)
[2019-08-13] MEDS ORDERED: AMINO ACID IV SCH ×10 (22:00)
[2019-08-13] MEDS ORDERED: DEXTROSE 70% IV SCH ×10 (22:00)
[2019-08-13] MEDS ORDERED: TOTAL PARENTERAL NUTRITION IV SCH ×10 (22:00)
[2019-08-14] VITALS (24 sets, daily range): BP systolic 99–168; BP diastolic 57–93
[2019-08-14] MEDS: DEXMEDETOMIDINE 400 MCG in IV NORMAL SALINE 100ML 96 ML IV PRN ×8 (00:29→22:10)
[2019-08-14] MEDS: INSULIN LISPRO 300 UNITS/3 ML VIAL. SQ SCH ×4 (05:47→17:29)
[2019-08-14 06:21] LABS: BASO % 0 % (0-3); EOS # 0.1 x10^3/uL (0.0-0.7); EOS % 1 % (0-3); HEMATOCRIT 23.6 % (36.0-47.0); HEMOGLOBIN 7.7 g/dL (12.0-15.5); LYMPH # 1.2 x10^3/uL (1.0-4.8); LYMPH % 14 % (24-48); MEAN CORPUSCULAR HEMOGLOBIN 30 pg (25-35); MEAN CORPUSCULAR HGB CONC 33 g/dL (31-37); MEAN CORPUSCULAR VOLUME 91 fL (79-100); MONO # 0.6 x10^3/uL (0.0-1.1); MONO % 6 % (0-9); NEUT # 7.4 x10^3/uL (1.8-7.7); NEUT % 79 % (31-73); PLATELET COUNT 286 x10^3/uL (140-400); RED CELL DISTRIBUTION WIDTH 18.3 % (11.5-14.5); WHITE BLOOD COUNT 9.3 x10^3/uL (4.0-11.0)
[2019-08-14 06:36] LABS: CALCIUM 8.6 mg/dL (8.5-10.1); GFR 58.9; POTASSIUM 3.5 mmol/L (3.5-5.1)
[2019-08-14] MEDS: PANTOPRAZOLE IV PUSH 40 MG VIAL. IVP SCH (07:24)
[2019-08-14] MEDS: fentaNYL PF VIAL 100 MCG/2 ML VIAL IVP PRN ×5 (07:51→22:49)
--- NOTE | 2019-08-14 08:52 | PDOC ---
Infectious Disease Note Subjective Subjective + abdominal pain Ongoing fevers Remains on vent via trach, FiO2 30% TPN Vital Sign Vital Signs Vital Signs Date Time Temp Pulse Resp B/P (MAP) Pulse Ox O2 Delivery O2 Flow Rate FiO2 08/14/19 08:00 100.5 76 18 123/62 (82) 99 Ventilator 100.5 Physical Exam PHYSICAL EXAM GENERAL: Propped up in bed, awake, weak appearing HEENT: Pupils equal, + NGT, oral cavity dry NECK: Trach/vent LUNGS: rhonchi HEART: S1, S2, regular ABDOMEN: Distended, tender, hypoactive BS, : Lind (08/01) EXTREMITIES: Generalized edema, no cyanosis, SCDs bilaterally DERMATOLOGIC: Warm and dry. No generalized rash. CENTRAL NERVOUS SYSTEM: Extremely weak, nods to few simple questions HDC has been removed NATALIYA (08/01) clean Labs Lab Laboratory Tests Test 08/13/19 12:02 08/13/19 17:54 08/14/19 00:25 08/14/19 05:45 Glucose (Fingerstick) 142 mg/dL (70-99) 128 mg/dL (70-99) 129 mg/dL (70-99) 137 mg/dL (70-99) Test 08/14/19 06:00 White Blood Count 9.3 x10^3/uL (4.0-11.0) Red Blood Count 2.60 x10^6/uL (3.50-5.40) Hemoglobin 7.7 g/dL (12.0-15.5) Hematocrit 23.6 % (36.0-47.0) Mean Corpuscular Volume 91 fL (79-100) Mean Corpuscular Hemoglobin 30 pg (25-35) Mean Corpuscular Hemoglobin Concent 33 g/dL (31-37) Red Cell Distribution Width 18.3 % (11.5-14.5) Platelet Count 286 x10^3/uL (140-400) Neutrophils (%) (Auto) 79 % (31-73) Lymphocytes (%) (Auto) 14 % (24-48) Monocytes (%) (Auto) 6 % (0-9) Eosinophils (%) (Auto) 1 % (0-3) Basophils (%) (Auto) 0 % (0-3) Neutrophils # (Auto) 7.4 x10^3/uL (1.8-7.7) Lymphocytes # (Auto) 1.2 x10^3/uL (1.0-4.8) Monocytes # (Auto) 0.6 x10^3/uL (0.0-1.1) Eosinophils # (Auto) 0.1 x10^3/uL (0.0-0.7) Basophils # (Auto) 0.0 x10^3/uL (0.0-0.2) Sodium Level 149 mmol/L (136-145) Potassium Level 3.5 mmol/L (3.5-5.1) Chloride Level 110 mmol/L (98-107) Carbon Dioxide Level 28 mmol/L (21-32) Anion Gap 11 (6-14) Blood Urea Nitrogen 60 mg/dL (7-20) Creatinine 1.0 mg/dL (0.6-1.0) Estimated GFR (Cockcroft-Gault) 58.9 Glucose Level 142 mg/dL (70-99) Calcium Level 8.6 mg/dL (8.5-10.1) Micro CT A/P, 08/09 IMPRESSION: 1. Pancreas again appears diffusely enlarged and hypodense compatible with diffuse pancreatitis and pancreatic necrosis. 2. Extensive retroperitoneal fluid collections are again identified, slightly larger in size. 3. Moderate to large volume of abdominal and pelvic ascites is again identified. Mild generalized increase in fatty inflammation or anasarca. 4. Cholelithiasis with possible cholecystitis. 5. Moderate pleural effusions, may be slightly improved. Infiltrate/atelectasis in both lung bases. 6. Small hepatic low-density lesion is too small to characterize, may represent a small cyst, likely unchanged. Objective Assessment Persistent fever - New left IJ/Lind 08/01. PICC removed 08/01. HDC removed -? pancreatitis. blood cults 07/28 neg. Urine - neg, Leukocytosis 07/28 -improved Ascites s/p paracentesis 08/02 - 4300 ml. cultures neg Severe acute gallstone pancreatitis with necrosis -CT 08/01 necrotizing pancreatitis with fluid and phlegmon at the pancreas Hypotension off levaphed Joseph Pleural effusions JUANA requiring HD - s/p RIJ temporary dialysis catheter replacement, 07/20 Vent dependent respiratory failure -s/p Trach placement -lung opacities, COVID-19 neg Anasarca - worse Anemia - S/p PRBC 07/13 Hypocalcemia Prediabetes HTN Diarrhea, C. diff neg 07/10 Anemia - S/p PRBCs Plan Plan of Care cont merrem (07/26), micafungin, and dapto Monitor for abx toxicities. CK in am zyvox changed to dapto (08/09), to rule out serotonin sy causing fever Maintain aspiration precautions Surgery on Thursday, 08/14 planned D/w nursing Critically ill Attending Co-Sign The patient was seen and interviewed as well as examined at the bedside. The lucy quinteros was reviewed. The case was discussed. Agree with the plan of care. FRANCA HOBSON APRN Aug 14, 2019 08:52 KIMMY JONES MD Aug 14, 2019 10:31
[2019-08-14] MEDS: MICAFUNGIN 100 MG in IV DEXTROSE 5% 100ML 100 ML IV SCH (08:58)
[2019-08-14] MEDS: HEPARIN for SUB-Q USE 5,000 UNIT/ML VIAL. SQ SCH (08:59)
[2019-08-14] MEDS: MEROPENEM 500 MG in IV NORMAL SALINE 50ML 50 ML IV SCH ×2 (09:54→22:11)
--- NOTE | 2019-08-14 10:53 | PDOC ---
PULMONARY PROGRESS NOTES Subjective Patient intubated on 07/10 , s/p trach /, on vent tolerated ps for 9 hrs yesterday, on predecex, mod trach secretion, febrile Vitals Vital Signs Date Time Temp Pulse Resp B/P (MAP) Pulse Ox O2 Delivery O2 Flow Rate FiO2 08/14/19 10:17 26 99 Ventilator 08/14/19 10:00 81 137/83 (101) 08/14/19 08:00 100.5 100.5 Comments ros unable to obtain on vent General: Alert HEENT: Other (nc at perrl nose clear nech trach site ok no lad no thyromegaly) Lungs: Crackles, Other (dimished in BLL nc at perrl nose clear neck trach site ok no lad no thyromegaly) Cardiovascular: S1, S2 Abdomen: Soft, Non-tender, Other (distended) Neuro Exam: Alert Extremities: Other (+3 generalized edema ) Skin: Warm, Dry Labs Laboratory Tests Test 08/12/19 13:11 08/13/19 00:54 08/13/19 05:37 08/13/19 06:00 Glucose (Fingerstick) 163 mg/dL (70-99) 121 mg/dL (70-99) 123 mg/dL (70-99) White Blood Count 9.2 x10^3/uL (4.0-11.0) Red Blood Count 3.50 x10^6/uL (3.50-5.40) Hemoglobin 10.8 g/dL (12.0-15.5) Hematocrit 31.7 % (36.0-47.0) Mean Corpuscular Volume 91 fL (79-100) Mean Corpuscular Hemoglobin 31 pg (25-35) Mean Corpuscular Hemoglobin Concent 34 g/dL (31-37) Red Cell Distribution Width 18.2 % (11.5-14.5) Platelet Count 237 x10^3/uL (140-400) Neutrophils (%) (Auto) 78 % (31-73) Lymphocytes (%) (Auto) 13 % (24-48) Monocytes (%) (Auto) 8 % (0-9) Eosinophils (%) (Auto) 1 % (0-3) Basophils (%) (Auto) 0 % (0-3) Neutrophils # (Auto) 7.2 x10^3/uL (1.8-7.7) Lymphocytes # (Auto) 1.2 x10^3/uL (1.0-4.8) Monocytes # (Auto) 0.7 x10^3/uL (0.0-1.1) Eosinophils # (Auto) 0.1 x10^3/uL (0.0-0.7) Basophils # (Auto) 0.0 x10^3/uL (0.0-0.2) Test 08/13/19 12:02 08/13/19 17:54 08/14/19 00:25 08/14/19 05:45 Glucose (Fingerstick) 142 mg/dL (70-99) 128 mg/dL (70-99) 129 mg/dL (70-99) 137 mg/dL (70-99) Test 08/14/19 06:00 White Blood Count 9.3 x10^3/uL (4.0-11.0) Red Blood Count 2.60 x10^6/uL (3.50-5.40) Hemoglobin 7.7 g/dL (12.0-15.5) Hematocrit 23.6 % (36.0-47.0) Mean Corpuscular Volume 91 fL (79-100) Mean Corpuscular Hemoglobin 30 pg (25-35) Mean Corpuscular Hemoglobin Concent 33 g/dL (31-37) Red Cell Distribution Width 18.3 % (11.5-14.5) Platelet Count 286 x10^3/uL (140-400) Neutrophils (%) (Auto) 79 % (31-73) Lymphocytes (%) (Auto) 14 % (24-48) Monocytes (%) (Auto) 6 % (0-9) Eosinophils (%) (Auto) 1 % (0-3) Basophils (%) (Auto) 0 % (0-3) Neutrophils # (Auto) 7.4 x10^3/uL (1.8-7.7) Lymphocytes # (Auto) 1.2 x10^3/uL (1.0-4.8) Monocytes # (Auto) 0.6 x10^3/uL (0.0-1.1) Eosinophils # (Auto) 0.1 x10^3/uL (0.0-0.7) Basophils # (Auto) 0.0 x10^3/uL (0.0-0.2) Sodium Level 149 mmol/L (136-145) Potassium Level 3.5 mmol/L (3.5-5.1) Chloride Level 110 mmol/L (98-107) Carbon Dioxide Level 28 mmol/L (21-32) Anion Gap 11 (6-14) Blood Urea Nitrogen 60 mg/dL (7-20) Creatinine 1.0 mg/dL (0.6-1.0) Estimated GFR (Cockcroft-Gault) 58.9 Glucose Level 142 mg/dL (70-99) Calcium Level 8.6 mg/dL (8.5-10.1) Laboratory Tests Test 08/13/19 12:02 08/13/19 17:54 08/14/19 00:25 08/14/19 05:45 Glucose (Fingerstick) 142 mg/dL (70-99) 128 mg/dL (70-99) 129 mg/dL (70-99) 137 mg/dL (70-99) Test 08/14/19 06:00 White Blood Count 9.3 x10^3/uL (4.0-11.0) Red Blood Count 2.60 x10^6/uL (3.50-5.40) Hemoglobin 7.7 g/dL (12.0-15.5) Hematocrit 23.6 % (36.0-47.0) Mean Corpuscular Volume 91 fL (79-100) Mean Corpuscular Hemoglobin 30 pg (25-35) Mean Corpuscular Hemoglobin Concent 33 g/dL (31-37) Red Cell Distribution Width 18.3 % (11.5-14.5) Platelet Count 286 x10^3/uL (140-400) Neutrophils (%) (Auto) 79 % (31-73) Lymphocytes (%) (Auto) 14 % (24-48) Monocytes (%) (Auto) 6 % (0-9) Eosinophils (%) (Auto) 1 % (0-3) Basophils (%) (Auto) 0 % (0-3) Neutrophils # (Auto) 7.4 x10^3/uL (1.8-7.7) Lymphocytes # (Auto) 1.2 x10^3/uL (1.0-4.8) Monocytes # (Auto) 0.6 x10^3/uL (0.0-1.1) Eosinophils # (Auto) 0.1 x10^3/uL (0.0-0.7) Basophils # (Auto) 0.0 x10^3/uL (0.0-0.2) Sodium Level 149 mmol/L (136-145) Potassium Level 3.5 mmol/L (3.5-5.1) Chloride Level 110 mmol/L (98-107) Carbon Dioxide Level 28 mmol/L (21-32) Anion Gap 11 (6-14) Blood Urea Nitrogen 60 mg/dL (7-20) Creatinine 1.0 mg/dL (0.6-1.0) Estimated GFR (Cockcroft-Gault) 58.9 Glucose Level 142 mg/dL (70-99) Calcium Level 8.6 mg/dL (8.5-10.1) Medications Active Scripts Medications Dose Route/Sig Max Daily Dose Days Date Category Bisoprolol Fumarate 5 Mg Tablet 10 Mg PO DAILY 07/04/19 Reported Comments cxr reviewed. Impression . IMPRESSION: 1. Acute hypoxemic respiratory failure secondary to ARDS status post trach, 2. Gallstone pancreatitis 3. Severe metabolic acidosis.stable 4. Acute kidney injury-stable, ON HD-- continue to improve 5. Acute gallstone pancreatitis. 6. Hypoalbuminemia. 7. Moderate persistent effusions 8. Fever-persist. Per ID, per surgery 9. Chronic anemia 10. Covid 19 testing negative 11. Moderate to large ascites-S/P paracentisis S/P paracentisis with 4 liters removed on 08/03/19 Plan . cont vent support, setting reviewed. weaning as tolerated Patient still febrile, fu cxs, surgery on thursday PT hep sq and protonix for prophylaxis Follow surgery recs Follow ID rec, abx per id Follow nephrology recs Nutritional support per surgery continue TPN for nutrition HD catheter to be removed today DVT/GI PPX am cxr d/w RN/RT TEN WHITFIELD MD Aug 14, 2019 10:53
--- NOTE | 2019-08-14 13:00 | PDOC ---
[facility] PROGRESS NOTE Chief Complaint Chief Complaint Respiratory failure requiring mechanical ventilation (on vent since 07/10) Tracheostomy bilateral pleural effusions/pulm edema Sepsis Severe Acute gallstone pancreatitis (not a surgical candidate at this time) with necrosis Acute kidney failure now requiring dialysis Salpingitis Gallstones (Calculus of gallbladder with acute cholecystitis without obstruction) HTN Leukocytosis Hypoxia Uterine fibroid Intractable pain Intractable nausea Covid 19 negative. Acute on chronic anemia EEG: No seizure activity. ESRD on HD Hyperglycemia, persistently in 200s History of Present Illness History of Present Illness 08-14-2019 Patient seen and examined in the ICU Chart reviewed Discussed with RN She is scheduled for surgery tomorrow morning (lap/open [place] with possible partial pancreatectomy) Patient is still mechanically ventilated SIMV/04/06 of pressure support 30% FiO2 On IV TPN and Precedex 08-13-2019 Patient seen and examined in the ICU She remains mechanically ventilated via tracheostomy AC/18/4 50/30% She is on IV TPN IV Precedex Antibiotics include meropenem and micafungin Chart reviewed Discussed with RN room She remains critically ill 08-12-2019 Patient seen and examined in the ICU She remains mechanically ventilated Spontaneous respirations with 25 of pressure support 30% FiO2 NG to suction She is on TPN She is sedated with Precedex Discussed with RN Chart reviewed She remains critically ill 08-11-2019 Patient seen and examined in the ICU She remains mechanically ventilated AC/18/4 50/30% FiO2 Chart reviewed Discussed with RN She is critically ill 08-10-2019 Patient seen and examined in the ICU She has a tracheostomy AC/18/4 50/30% Chart reviewed Discussed with RN She remains extremely critically ill 08-09-2019 Patient seen in ICU room 116 she is currently on dialysis Tries to mumble is grabbing at her face with her left hand She is extremely weak cannot communicate well She is swollen Chart reviewed Discussed with RN Very critically ill 08-08-2019 patient seen and examined in the ICU She is on the vent via tracheostomy AC//4 50/35% Has IV TPN NG to suction Wearing mitts for patient safety Still seems encephalopathic Chart reviewed Discussed with RN She remains critically ill Ms Diaz is a 48yo F w/ PMHx HTN, prediabetes who presented to the emergency room with complaints of abdominal pain on 07/04/2019. Found with Lipase 96215, AST 401, ALT 249, Bilirubin 1.4. CT abdomen confirms pancreatic inflammation, peripancreatic fluid and inflammatory changes around the pancreas consistent with pancreatitis. Cholelithiasis and 1.4cm uterine fibroid as well as possible left salpingitis. Admitted for further care GI, General surgery, ID, Pulm consulted. 07/04: No urine output. Added dilaudid for pain, PICC placed per IR. Renal US negative.Seen bedside in ICU, given 2L additional NSS and albumin infusion. Still hypotensive, started on levophed. Repeat CT abdomen w/ necrosis. 07/05: O2 saturation 87% on nasal cannula oxygen. Dialysis catheter per nephrology 07/06: She is now on BiPAP appears more ill, now on dialysis 07/07: Seen on BiPAP. Her mother and another family member are present and seemed to be good support for her. Currently on dialysis. Appears critically ill 07/08: Overnight Tmax 101.7 , still on BiPAP FiO2 40%, still on low dose Levophed gtt, TPN initiated. On dialysis 07/24: Tracheostomy 07/30: S/p tracheostomy on vent spontaneous respirations with 5 of pressure support 35% FiO2, rectal tube and a Lind, off pressors 07/31: Off pressors. Seen on dialysis this morning. BUN 80. Tracking with her eyes. Still on vent via trach. 08/01: BUN 68, Cr 1.7. Temp 100.2F axillary. WBC 9.8. Still on vent via trach. Tracking reasonably well. In obvious discomfort. Removed PICC and CVC LIJ and replaced. Tips sent for culture. CT chest/abd/pelvis with bilateral pleural effusion and ascites. 08/02: Renal function stable. Still on vent. More interactive today. Miming wish for food. Plan discussed for thoracentesis/paracentesis with daughters today. They were under impression patient was doing worse due to a miscommunication which has been clarified over the phone. 4.3L removed. 08/03: BUN 88, Cr 1.8. Much more interactive today. Appears more comfortable today. 08/04: Febrile overnight 101.8F. More interactive, still on vent. Asking for ice by miming. 08/05: Afebrile overnight. TMax last 24 hours 100.6F. Hb 7.1. Interactive when awake. Afebrile. Hb 7. Not tolerating vent wean. Very interactive, on low dose precedex. Excellent UOP over the past 72 hours Plan: Cont vent weaning, dialysis Trach shield during day if ok with pulm. Would recommend ABG after 4 hours to r/o CO2 retention, however and still vent overnight Vitals/I&O Vitals/I&O: Vital Signs Date Time Temp Pulse Resp B/P (MAP) Pulse Ox O2 Delivery O2 Flow Rate FiO2 08/14/19 12:00 100.3 90 36 128/68 (88) 99 Ventilator 100.3 I & O 08/13/19 08/13/19 08/14/19 15:00 23:00 07:00 Intake Total 150 ml 1404 ml 1360 ml Output Total 530 ml 990 ml 475 ml Balance -380 ml 414 ml 885 ml Physical Exam Physical Exam: GENERAL: Propped up in bed, awake, weak appearing HEENT: Pupils equal, + NGT, oral cavity dry NECK: Trach/vent LUNGS: rhonchi HEART: S1, S2, regular ABDOMEN: Distended, tender, hypoactive BS, : Lind (08/01) EXTREMITIES: Generalized edema, no cyanosis, SCDs bilaterally DERMATOLOGIC: Warm and dry. No generalized rash. CENTRAL NERVOUS SYSTEM: Extremely weak, nods to few simple questions HDC has been removed LI (08/01) clean General: Alert, mild distress Heart: Regular rate, Normal S1, Other (increased rate) Lungs: Crackles, Other (dimished in BLL nc at perrl nose clear neck trach site ok no lad no thyromegaly) Abdomen: Soft, Other (mild TTP) Extremities: Other (ANASARCA) Skin: Other (mottling noted to extremities ) Labs Labs: Laboratory Tests Test 08/13/19 17:54 08/14/19 00:25 08/14/19 05:45 08/14/19 06:00 Glucose (Fingerstick) 128 mg/dL (70-99) 129 mg/dL (70-99) 137 mg/dL (70-99) White Blood Count 9.3 x10^3/uL (4.0-11.0) Red Blood Count 2.60 x10^6/uL (3.50-5.40) Hemoglobin 7.7 g/dL (12.0-15.5) Hematocrit 23.6 % (36.0-47.0) Mean Corpuscular Volume 91 fL (79-100) Mean Corpuscular Hemoglobin 30 pg (25-35) Mean Corpuscular Hemoglobin Concent 33 g/dL (31-37) Red Cell Distribution Width 18.3 % (11.5-14.5) Platelet Count 286 x10^3/uL (140-400) Neutrophils (%) (Auto) 79 % (31-73) Lymphocytes (%) (Auto) 14 % (24-48) Monocytes (%) (Auto) 6 % (0-9) Eosinophils (%) (Auto) 1 % (0-3) Basophils (%) (Auto) 0 % (0-3) Neutrophils # (Auto) 7.4 x10^3/uL (1.8-7.7) Lymphocytes # (Auto) 1.2 x10^3/uL (1.0-4.8) Monocytes # (Auto) 0.6 x10^3/uL (0.0-1.1) Eosinophils # (Auto) 0.1 x10^3/uL (0.0-0.7) Basophils # (Auto) 0.0 x10^3/uL (0.0-0.2) Sodium Level 149 mmol/L (136-145) Potassium Level 3.5 mmol/L (3.5-5.1) Chloride Level 110 mmol/L (98-107) Carbon Dioxide Level 28 mmol/L (21-32) Anion Gap 11 (6-14) Blood Urea Nitrogen 60 mg/dL (7-20) Creatinine 1.0 mg/dL (0.6-1.0) Estimated GFR (Cockcroft-Gault) 58.9 Glucose Level 142 mg/dL (70-99) Calcium Level 8.6 mg/dL (8.5-10.1) Test 08/14/19 12:09 Glucose (Fingerstick) 148 mg/dL (70-99) Assessment and Plan Assessmemt and Plan Problems Medical Problems: (1) Acute pancreatitis Status: Acute (2) Cholelithiasis Status: Acute Respiratory failure requiring intubation Status post tracheostomy Severe Acute gallstone pancreatitis (she is not a surgical candidate as she is too ill) Acute kidney failure now requiring dialysis Salpingo--itis Gallstones (Calculus of gallbladder with acute cholecystitis without obstruction) HTN Leukocytosis Hypoxia Uterine fibroid Hypoxia with respiratory failure Intractable pain Intractable nausea Plan Going to the OR in the a.m. for cholecystectomy and possible partial p ancreatectomy ICU monitoring Tracheostomy care NG suctioning Vent management per pulm. pressure support as tolerated Dialysis per nephro Merrem (07/26) and Zyvox (07/28) and micafungin Follow cultures Trach care Nutritional support When necessary levo fed Neuro following No plans for sx at present as she is to ill still Discharge disposition pending (? Eventual LTAC) She is still critically ill Prognosis very guarded but very very slowly improving? Total time 32 min Comment Review of Relevant I have reviewed the following items kolby (where applicable) has been applied. Medications: Current Medications Medications (Trade) Dose Ordered Sig/Yvon Route PRN Reason Start Time Stop Time Status Last Admin Dose Admin Sodium Acetate 50 meq/Potassium Acetate 55 meq/ Magnesium Sulfate 20 meq/Calcium Gluconate 10 meq/ Multivitamins 10 ml/Chromium/ Copper/Manganese/ Seleni/Zn 0.5 ml/ Insulin Human Regular 35 unit/ Total Parenteral Nutrition/Amino Acids/Dextrose/ Fat Emulsion Intravenous 1,800 ml @ 75 mls/hr TPN CONT IV 08/13/19 22:00 08/14/19 21:59 08/13/19 22:03 Daptomycin 430 mg/ Sodium Chloride 50 ml @ 100 mls/hr Q24H IV 08/13/19 13:00 08/13/19 13:17 Hemodynamically unstable?: No Is patient in severe pain?: No Is NPO status required?: Yes BEBO KIRBY III DO Aug 14, 2019 13:00
--- NOTE | 2019-08-14 13:14 | PDOC ---
SURGICAL PROGRESS NOTE Subjective Pt awake on vent Vital Signs Vital Signs Date Time Temp Pulse Resp B/P (MAP) Pulse Ox O2 Delivery O2 Flow Rate FiO2 08/14/19 12:00 100.3 90 36 128/68 (88) 99 Ventilator 100.3 I&O Intake and Output 08/14/19 07:00 Intake Total 2914 ml Output Total 1995 ml Balance 919 ml Intake Oral 0 ml IV Total 2914 ml Output Urine Total 1995 ml General: Alert, Cooperative, No acute distress Abdomen: Soft, Other (mild TTP) Labs Laboratory Tests Test 08/13/19 00:54 08/13/19 05:37 08/13/19 06:00 08/13/19 12:02 Glucose (Fingerstick) 121 mg/dL (70-99) 123 mg/dL (70-99) 142 mg/dL (70-99) White Blood Count 9.2 x10^3/uL (4.0-11.0) Red Blood Count 3.50 x10^6/uL (3.50-5.40) Hemoglobin 10.8 g/dL (12.0-15.5) Hematocrit 31.7 % (36.0-47.0) Mean Corpuscular Volume 91 fL (79-100) Mean Corpuscular Hemoglobin 31 pg (25-35) Mean Corpuscular Hemoglobin Concent 34 g/dL (31-37) Red Cell Distribution Width 18.2 % (11.5-14.5) Platelet Count 237 x10^3/uL (140-400) Neutrophils (%) (Auto) 78 % (31-73) Lymphocytes (%) (Auto) 13 % (24-48) Monocytes (%) (Auto) 8 % (0-9) Eosinophils (%) (Auto) 1 % (0-3) Basophils (%) (Auto) 0 % (0-3) Neutrophils # (Auto) 7.2 x10^3/uL (1.8-7.7) Lymphocytes # (Auto) 1.2 x10^3/uL (1.0-4.8) Monocytes # (Auto) 0.7 x10^3/uL (0.0-1.1) Eosinophils # (Auto) 0.1 x10^3/uL (0.0-0.7) Basophils # (Auto) 0.0 x10^3/uL (0.0-0.2) Test 08/13/19 17:54 08/14/19 00:25 08/14/19 05:45 08/14/19 06:00 Glucose (Fingerstick) 128 mg/dL (70-99) 129 mg/dL (70-99) 137 mg/dL (70-99) White Blood Count 9.3 x10^3/uL (4.0-11.0) Red Blood Count 2.60 x10^6/uL (3.50-5.40) Hemoglobin 7.7 g/dL (12.0-15.5) Hematocrit 23.6 % (36.0-47.0) Mean Corpuscular Volume 91 fL (79-100) Mean Corpuscular Hemoglobin 30 pg (25-35) Mean Corpuscular Hemoglobin Concent 33 g/dL (31-37) Red Cell Distribution Width 18.3 % (11.5-14.5) Platelet Count 286 x10^3/uL (140-400) Neutrophils (%) (Auto) 79 % (31-73) Lymphocytes (%) (Auto) 14 % (24-48) Monocytes (%) (Auto) 6 % (0-9) Eosinophils (%) (Auto) 1 % (0-3) Basophils (%) (Auto) 0 % (0-3) Neutrophils # (Auto) 7.4 x10^3/uL (1.8-7.7) Lymphocytes # (Auto) 1.2 x10^3/uL (1.0-4.8) Monocytes # (Auto) 0.6 x10^3/uL (0.0-1.1) Eosinophils # (Auto) 0.1 x10^3/uL (0.0-0.7) Basophils # (Auto) 0.0 x10^3/uL (0.0-0.2) Sodium Level 149 mmol/L (136-145) Potassium Level 3.5 mmol/L (3.5-5.1) Chloride Level 110 mmol/L (98-107) Carbon Dioxide Level 28 mmol/L (21-32) Anion Gap 11 (6-14) Blood Urea Nitrogen 60 mg/dL (7-20) Creatinine 1.0 mg/dL (0.6-1.0) Estimated GFR (Cockcroft-Gault) 58.9 Glucose Level 142 mg/dL (70-99) Calcium Level 8.6 mg/dL (8.5-10.1) Test 08/14/19 12:09 Glucose (Fingerstick) 148 mg/dL (70-99) Laboratory Tests Test 08/13/19 17:54 08/14/19 00:25 08/14/19 05:45 08/14/19 06:00 Glucose (Fingerstick) 128 mg/dL (70-99) 129 mg/dL (70-99) 137 mg/dL (70-99) White Blood Count 9.3 x10^3/uL (4.0-11.0) Red Blood Count 2.60 x10^6/uL (3.50-5.40) Hemoglobin 7.7 g/dL (12.0-15.5) Hematocrit 23.6 % (36.0-47.0) Mean Corpuscular Volume 91 fL (79-100) Mean Corpuscular Hemoglobin 30 pg (25-35) Mean Corpuscular Hemoglobin Concent 33 g/dL (31-37) Red Cell Distribution Width 18.3 % (11.5-14.5) Platelet Count 286 x10^3/uL (140-400) Neutrophils (%) (Auto) 79 % (31-73) Lymphocytes (%) (Auto) 14 % (24-48) Monocytes (%) (Auto) 6 % (0-9) Eosinophils (%) (Auto) 1 % (0-3) Basophils (%) (Auto) 0 % (0-3) Neutrophils # (Auto) 7.4 x10^3/uL (1.8-7.7) Lymphocytes # (Auto) 1.2 x10^3/uL (1.0-4.8) Monocytes # (Auto) 0.6 x10^3/uL (0.0-1.1) Eosinophils # (Auto) 0.1 x10^3/uL (0.0-0.7) Basophils # (Auto) 0.0 x10^3/uL (0.0-0.2) Sodium Level 149 mmol/L (136-145) Potassium Level 3.5 mmol/L (3.5-5.1) Chloride Level 110 mmol/L (98-107) Carbon Dioxide Level 28 mmol/L (21-32) Anion Gap 11 (6-14) Blood Urea Nitrogen 60 mg/dL (7-20) Creatinine 1.0 mg/dL (0.6-1.0) Estimated GFR (Cockcroft-Gault) 58.9 Glucose Level 142 mg/dL (70-99) Calcium Level 8.6 mg/dL (8.5-10.1) Test 08/14/19 12:09 Glucose (Fingerstick) 148 mg/dL (70-99) Problem List Problems Medical Problems: (1) Acute pancreatitis Status: Acute (2) Cholelithiasis Status: Acute Assessment/Plan severe pancreatitis TO OR in AM for laparoscopic versus open cholecystectomy with cholangiogram, pancreatic necrosectomy DAVON SIMMS MD Aug 14, 2019 13:14
[2019-08-14] MEDS: TPN PER PHARMACY MC PRN (13:34)
--- NOTE | 2019-08-14 13:36 | NUR ---
Pharmacy TPN Dosing Note S: SCOTT AVILA is a 48 year old F Currently receiving Central Continuous TPN started 07/06/19 B:Pertinent PMH: Necrotizing pancreatitis Height: 5 feet, 8 inches Weight: 110.2 kg Current diet: NPO LABS: Sodium: 149 Potassium: 3.5 Chloride: 110 Calcium: 8.6 Corrected Calcium: 9.64 Magnesium: 2.1 CO2: 28 SCr: 1.0 Glucose: 129-148 Albumin: 2.7 AST: 23 ALT: 11 TPN FORMULA: TPN TYPE: Central Continuous AMINO ACIDS: 125 gm DEXTROSE: 225 gm LIPIDS: 20 gm SODIUM CHLORIDE: - mEq SODIUM ACETATE: - mEq SODIUM PHOSPHATE: - mmol POTASSIUM CHLORIDE: - mEq POTASSIUM ACETATE: 55 mEq POTASSIUM PHOSPHATE: - mmol MAGNESIUM: 20 mEq CALCIUM: 10 mEq INSULIN: 35 units MULTIPLE VITAMIN: 10 ml TRACE ELEMENTS: 0.5 ml(s) TPN PLAN: Na trending down but remains elevated; will remove remaining 50 meq Na acetate in TPN and increase volume from 1800 to 1920 ml. BMP in AM. R: Continue TPN ABOVE. Will monitor electrolytes, glucose, and tolerance to TPN. CHRISTIAN VALLEJO [facility], 08/14/19 2251
[2019-08-14] MEDS: DAPTOmycin (GENERIC) IVPB 430 MG in IV NORMAL SALINE 50ML 50 ML IV SCH (14:13)
--- NOTE | 2019-08-14 16:19 | PDOC ---
PROGRESS NOTES Assessment Assessment Respiratory failure. Seizure. Metabolic encephalopathy. Fever, recurrent, T100.5 degree on 08/14/19. Metabolic acidosis. Diffuse pulmonary infiltrate. Pleural effusion. Pancreatitis, necrotizing. Gallstone. Leukocytosis. Lymphopenia. Electrolytes imbalances. Hyperglycemia. DM. HTN. HLD. Anemia. Abnormal CXR. Obesity. RECOMMENDATIONS/PLAN: Continue life support in CCU at the present time. Keppra if has further seizures. Treat medical diseases. OT/PT. EEG: No seizure activity. OBJECTIVE: 08/14/19: No seizures reported over night. Past Medical History Cardiovascular: HTN, Hyperlipidemia Endocrine: Diabetes Family History Unobtainable. Social HistoryU not obtainable Allergies Coded Allergies: Codeine (Verified Allergy, Intermediate, rash, 07/04/19) ROS Unobtainable. NEUROLOGICAL EXAMINATION: Sleepiness but arousable. Not fully oriented to time, place and person. PERRL. EOMI not examined. CN: no acute focal findings. Muscle tone: Decreased. Muscle strength: 2-3 UE, 2 LE distal. DTR: 1-2 Plantar reflex: Neutral response bilaterally Gait: not able to walk. Sensory exam: no response to stimuli.. Not able to access cerebellar signs. F-T-N test not performed. Patient seen in CCU. Objective Objective Vital Signs Date Time Temp Pulse Resp B/P (MAP) Pulse Ox O2 Delivery O2 Flow Rate FiO2 08/14/19 15:40 99 Ventilator 08/14/19 15:00 93 32 162/93 (116) 08/14/19 12:00 100.3 100.3 Intake and Output 08/14/19 07:00 Intake Total 2914 ml Output Total 1995 ml Balance 919 ml Intake Oral 0 ml IV Total 2914 ml Output Urine Total 1995 ml Vitals Signs Vitals VS - Last 72 Hours, by Label Date Time Temp Pulse Resp B/P (MAP) Pulse Ox O2 Delivery O2 Flow Rate FiO2 08/14/19 15:40 99 Ventilator 08/14/19 15:00 93 32 162/93 (116) 99 Ventilator 08/14/19 14:00 99 37 140/83 (102) 100 Ventilator 08/14/19 13:56 27 100 Ventilator 08/14/19 13:36 99 Ventilator 08/14/19 13:00 80 25 117/69 (85) 99 Ventilator 08/14/19 12:00 Mechanical Ventilator 08/14/19 12:00 100.3 90 36 128/68 (88) 99 Ventilator 100.3 08/14/19 11:41 98 Ventilator 08/14/19 11:00 84 33 140/71 (94) 99 Ventilator 08/14/19 10:17 26 99 Ventilator 08/14/19 10:00 81 29 137/83 (101) 99 Ventilator 08/14/19 09:00 79 21 122/67 (85) 98 Ventilator 08/14/19 09:00 Ventilator 08/14/19 08:21 18 99 Ventilator 08/14/19 08:00 100.5 76 18 123/62 (82) 99 Ventilator 100.5 08/14/19 08:00 Mechanical Ventilator 08/14/19 07:51 34 100 Ventilator 08/14/19 07:35 98 Ventilator 08/14/19 07:00 75 25 118/62 (80) 98 Ventilator 08/14/19 06:00 76 20 118/70 (86) 100 Ventilator 08/14/19 05:00 76 20 99/64 (76) 98 Ventilator 08/14/19 04:15 100 Ventilator 08/14/19 04:00 99.5 83 24 137/64 (88) 100 Ventilator 99.5 08/14/19 04:00 Mechanical Ventilator 08/14/19 03:00 75 21 116/62 (80) 98 Ventilator 08/14/19 02:00 75 21 106/59 (75) 97 Ventilator 08/14/19 01:00 76 20 102/58 (73) 98 Ventilator 08/14/19 00:26 98 Ventilator 08/14/19 00:00 100.9 81 20 154/79 (104) 98 Ventilator 100.9 08/14/19 00:00 Mechanical Ventilator 08/13/19 23:00 86 18 144/71 (95) 100 Ventilator 08/13/19 22:51 18 100 Ventilator 08/13/19 22:21 18 100 Ventilator 08/13/19 22:00 84 22 124/72 (89) 98 Ventilator 08/13/19 21:00 79 19 119/66 (83) 98 Ventilator 08/13/19 20:25 98 Ventilator 08/13/19 20:25 18 98 Ventilator 08/13/19 20:00 99.9 87 28 133/80 (97) 99 Ventilator 99.9 4/25/20 19:55 18 99 Ventilator 08/13/19 19:45 Mechanical Ventilator 08/13/19 19:00 87 25 129/81 (97) 100 CPAP Trial 08/13/19 18:00 101 28 144/79 (100) 98 CPAP Trial 08/13/19 17:00 85 24 146/73 (97) 96 CPAP Trial 08/13/19 16:12 22 98 Ventilator 08/13/19 16:00 Mechanical Ventilator 08/13/19 16:00 99.3 82 22 149/77 (101) 98 CPAP Trial 99.3 08/13/19 15:53 100 Ventilator 08/13/19 15:42 32 99 Ventilator 08/13/19 15:00 95 22 145/78 (100) 100 CPAP Trial 08/13/19 14:00 85 21 124/66 (85) 98 CPAP Trial 08/13/19 13:00 93 25 156/68 (97) 99 CPAP Trial 08/13/19 12:00 Mechanical Ventilator 08/13/19 12:00 101.3 124 34 196/90 (125) 97 CPAP Trial 101.3 08/13/19 11:31 97 Ventilator 08/13/19 11:20 27 98 Ventilator 08/13/19 11:00 100 29 169/96 (120) 97 Ventilator 08/13/19 10:47 30 99 Ventilator 08/13/19 10:00 78 27 112/72 (85) 98 Ventilator 08/13/19 09:00 79 26 108/65 (79) 98 Ventilator 08/13/19 08:00 101.0 82 28 109/67 (81) 97 Ventilator 101.0 08/13/19 08:00 Mechanical Ventilator 08/13/19 07:52 98 Ventilator 08/13/19 07:00 81 28 104/55 (71) 97 Ventilator Laboratory Laboratory Laboratory Tests Test 08/13/19 17:54 08/14/19 00:25 08/14/19 05:45 08/14/19 06:00 Glucose (Fingerstick) 128 mg/dL (70-99) 129 mg/dL (70-99) 137 mg/dL (70-99) White Blood Count 9.3 x10^3/uL (4.0-11.0) Red Blood Count 2.60 x10^6/uL (3.50-5.40) Hemoglobin 7.7 g/dL (12.0-15.5) Hematocrit 23.6 % (36.0-47.0) Mean Corpuscular Volume 91 fL (79-100) Mean Corpuscular Hemoglobin 30 pg (25-35) Mean Corpuscular Hemoglobin Concent 33 g/dL (31-37) Red Cell Distribution Width 18.3 % (11.5-14.5) Platelet Count 286 x10^3/uL (140-400) Neutrophils (%) (Auto) 79 % (31-73) Lymphocytes (%) (Auto) 14 % (24-48) Monocytes (%) (Auto) 6 % (0-9) Eosinophils (%) (Auto) 1 % (0-3) Basophils (%) (Auto) 0 % (0-3) Neutrophils # (Auto) 7.4 x10^3/uL (1.8-7.7) Lymphocytes # (Auto) 1.2 x10^3/uL (1.0-4.8) Monocytes # (Auto) 0.6 x10^3/uL (0.0-1.1) Eosinophils # (Auto) 0.1 x10^3/uL (0.0-0.7) Basophils # (Auto) 0.0 x10^3/uL (0.0-0.2) Sodium Level 149 mmol/L (136-145) Potassium Level 3.5 mmol/L (3.5-5.1) Chloride Level 110 mmol/L (98-107) Carbon Dioxide Level 28 mmol/L (21-32) Anion Gap 11 (6-14) Blood Urea Nitrogen 60 mg/dL (7-20) Creatinine 1.0 mg/dL (0.6-1.0) Estimated GFR (Cockcroft-Gault) 58.9 Glucose Level 142 mg/dL (70-99) Calcium Level 8.6 mg/dL (8.5-10.1) Test 08/14/19 12:09 Glucose (Fingerstick) 148 mg/dL (70-99) Microbiology 08/03/19 Aerobic and Anaerobic Culture - Final, Complete 08/03/19 Anaerobic Culture Result 1 (ALEXANDRA) - Final, Complete 08/03/19 Aerobic Culture - Final, Complete 08/03/19 Aerobic Culture Result 1 (ALEXANDRA) - Final, Complete 08/03/19 Gram Stain - Final, Complete 08/03/19 Gram Stain Result 1 (ALEXANDRA) - Final, Complete 08/03/19 Gram Stain Result 2 (ALEXANDRA) - Final, Complete 08/02/19 Blood Culture - Final, Complete NO GROWTH AFTER 5 DAYS 07/31/19 Urine Culture - Final, Complete 07/31/19 Urine Culture Result 1 (ALEXANDRA) - Final, Complete Medication Medications Current Medications Fentanyl Citrate (Fentanyl 2ml Vial) 25 mcg PRN Q5MIN PRN IV MILD PAIN 1-3; Start 08/15/19 at 07:00; Stop 08/16/19 at 06:59 Fentanyl Citrate (Fentanyl 2ml Vial) 50 mcg PRN Q5MIN PRN IV MODERATE TO SEVERE PAIN; Start 08/15/19 at 07:00; Stop 08/16/19 at 06:59 Heparin Sodium (Porcine) 1000 unit/Sodium Chloride 1,001 ml @ 1,001 mls/hr 1X ONCE IRR ; Start 08/15/19 at 06:00; Stop 08/15/19 at 06:59 Lidocaine HCl (Xylocaine-Mpf 1% 2ml Vial) 2 ml PRN 1X PRN ID PRIOR TO IV START; Start 08/15/19 at 07:00; Stop 08/16/19 at 06:59 Ondansetron HCl (Zofran) 4 mg PRN Q6HRS PRN IV NAUSEA/VOMITING; Start 08/15/19 at 07:00; Stop 08/16/19 at 06:59 Potassium Acetate 55 meq/Magnesium Sulfate 20 meq/ Calcium Gluconate 10 meq/ Multivitamins 10 ml/Chromium/ Copper/Manganese/ Seleni/Zn 0.5 ml/ Insulin Human Regular 35 unit/ Total Parenteral Nutrition/Amino Acids/Dextrose/ Fat Emulsion Intravenous 1,920 ml @ 80 mls/hr TPN CONT IV ; Start 08/14/19 at 22:00; Stop 08/15/19 at 21:59 Prochlorperazine Edisylate (Compazine) 5 mg PACU PRN PRN IV NAUSEA, MRX1; Start 08/15/19 at 07:00; Stop 08/16/19 at 06:59 Ringer's Solution 1,000 ml @ 30 mls/hr Q24H IV ; Start 08/15/19 at 07:00; Stop 08/15/19 at 18:59 Sodium Acetate 50 meq/Potassium Acetate 55 meq/ Magnesium Sulfate 20 meq/Calcium Gluconate 10 meq/ Multivitamins 10 ml/Chromium/ Copper/Manganese/ Seleni/Zn 0.5 ml/ Insulin Human Regular 35 unit/ Total Parenteral Nutrition/Amino Acids/Dextrose/ Fat Emulsion Intravenous 1,800 ml @ 75 mls/hr TPN CONT IV Last administered on 08/13/19at 22:03; Start 08/13/19 at 22:00; Stop 08/14/19 at 21:59 Comment Review of Relevant I have reviewed the following items kolby (where applicable) has been applied. ZANDER ZUÑIGA MD Aug 14, 2019 16:19
[2019-08-14] MEDS ORDERED: TOTAL PARENTERAL NUTRITION IV SCH ×9 (22:00)
[2019-08-14] MEDS ORDERED: AMINO ACID IV SCH ×9 (22:00)
[2019-08-14] MEDS ORDERED: DEXTROSE 70% IV SCH ×9 (22:00)
[2019-08-14] MEDS ORDERED: [UNRECOGNIZED DRUG - OTHER] IV SCH ×9 (22:00)
[2019-08-15] VITALS (23 sets, daily range): BP systolic 97–155; BP diastolic 58–87
[2019-08-15] MEDS: ACETAMINOPHEN 650 MG SUPP.RECT. PR PRN (00:32)
[2019-08-15] MEDS: DEXMEDETOMIDINE 400 MCG in IV NORMAL SALINE 100ML 96 ML IV PRN ×7 (00:37→22:00)
[2019-08-15] MEDS: fentaNYL PF VIAL 100 MCG/2 ML VIAL IVP PRN ×2 (01:56→13:32)
[2019-08-15 04:44] LABS: BASO % 0 % (0-3); EOS # 0.1 x10^3/uL (0.0-0.7); EOS % 1 % (0-3); HEMATOCRIT 24.6 % (36.0-47.0); HEMOGLOBIN 8.2 g/dL (12.0-15.5); LYMPH # 1.4 x10^3/uL (1.0-4.8); LYMPH % 15 % (24-48); MEAN CORPUSCULAR HEMOGLOBIN 30 pg (25-35); MEAN CORPUSCULAR HGB CONC 33 g/dL (31-37); MEAN CORPUSCULAR VOLUME 90 fL (79-100); MONO # 0.5 x10^3/uL (0.0-1.1); MONO % 6 % (0-9); NEUT # 7.1 x10^3/uL (1.8-7.7); NEUT % 78 % (31-73); PLATELET COUNT 323 x10^3/uL (140-400); RED BLOOD COUNT 2.72 x10^6/uL (3.50-5.40); RED CELL DISTRIBUTION WIDTH 18.4 % (11.5-14.5); WHITE BLOOD COUNT 9.2 x10^3/uL (4.0-11.0)
[2019-08-15 05:58] LABS: CALCIUM 8.5 mg/dL (8.5-10.1); CREATININE 1.1 mg/dL (0.6-1.0); GFR 52.8; POTASSIUM 3.6 mmol/L (3.5-5.1)
[2019-08-15] MEDS: INSULIN LISPRO 300 UNITS/3 ML VIAL. SQ SCH ×4 (06:00→18:06)
[2019-08-15] MEDS ORDERED: HEPARIN 1,000 UNIT in IV NORMAL SALINE 1,000 ML for SURG PERIOP IRR ONE ×2 (06:00→12:00)
[2019-08-15] MEDS ORDERED: ONDANSETRON PF 4 MG/2 ML VIAL. IV PRN (07:00)
[2019-08-15] MEDS ORDERED: LIDOCAINE 1% PF 2 ML VIAL. ID PRN (07:00)
[2019-08-15] MEDS ORDERED: PROCHLORPERAZINE 10 MG/2 ML VIAL. IV PRN (07:00)
[2019-08-15] MEDS ORDERED: fentaNYL PF VIAL 100 MCG/2 ML VIAL IV PRN ×2 (07:00)
[2019-08-15] MEDS ORDERED: IV RINGERS,LACTATED 1000ML 1,000 ML IV SCH (07:00)
--- NOTE | 2019-08-15 07:50 | RAD ---
EXAM: CHEST ONE VIEW. HISTORY: Ventilated, respiratory failure. COMPARISON: 08/07/2019. FINDINGS: A frontal view of the chest is obtained. A tracheostomy appliance is in expected position. A nasogastric tube has its tip below the inferior margin of the view. The inspiration is small. Bibasilar opacities indicate small to moderate bilateral pleural effusions along with atelectasis or infiltrate. There is no pneumothorax. The heart is not enlarged. IMPRESSION: 1. Small inspiration with stable small moderate bilateral pleural effusions and associated atelectasis or infiltrate. Electronically signed by: Enzo Perera MD (08/15/2019 7:47 AM) [id number]
[2019-08-15] MEDS: PANTOPRAZOLE IV PUSH 40 MG VIAL. IVP SCH (08:08)
[2019-08-15] MEDS: MICAFUNGIN 100 MG in IV DEXTROSE 5% 100ML 100 ML IV SCH (08:09)
--- NOTE | 2019-08-15 08:53 | PDOC ---
PROGRESS NOTES Chief Complaint Chief Complaint Respiratory failure requiring mechanical ventilation (on vent since 07/10) Tracheostomy bilateral pleural effusions/pulm edema Sepsis Severe Acute gallstone pancreatitis (not a surgical candidate at this time) with necrosis Acute kidney failure now requiring dialysis Salpingitis Gallstones (Calculus of gallbladder with acute cholecystitis without obstruction) HTN Leukocytosis Hypoxia Uterine fibroid Intractable pain Intractable nausea Covid 19 negative. Acute on chronic anemia EEG: No seizure activity ESRD on HD Hyperglycemia History of Present Illness History of Present Illness Ms Diaz is a 48yo F w/ PMHx HTN, prediabetes who presented to the emergency room with complaints of abdominal pain on 07/04/2019. Found with Lipase 96703, AST 401, ALT 249, Bilirubin 1.4. CT abdomen confirms pancreatic inflammation, peripancreatic fluid and inflammatory changes around the pancreas consistent with pancreatitis. Cholelithiasis and 1.4cm uterine fibroid as well as possible left salpingitis. Admitted for further care GI, General surgery, ID, Pulm consulted. 07/04: PICC placed per IR. Renal US negative. Started on levophed. Repeat CT abdomen w/ necrosis; 07/05: Dialysis catheter per nephrology; 07/06: On BiPAP; 07/07: BiPAP, dialysis; 07/08: Overnight Tmax 101.7 , still on BiPAP FiO2 40%, still on low dose Levophed gtt, TPN initiated. On dialysis 07/24: Tracheostomy; 07/30: S/p tracheostomy on vent spontaneous respirations with 5 of pressure support 35% FiO2, rectal tube and a Lind, off pressors; 08/01:Still on vent via trach. Removed PICC and CVC [facility] and replaced. CT chest/abd/pelvis with bilateral pleural effusion and ascites. 08/02: Renal function stable. Still on vent. More interactive today. Miming wish for food. Plan discussed for thoracentesis/paracentesis with daughters today. They were under impression patient was doing worse due to a miscommunication which has been clarified over the phone. 4.3L removed. 08/04: Febrile overnight 101.8F. More interactive, still on vent. Asking for ice by miming; 08/05: Afebrile overnight. TMax last 24 hours 100.6F. Hb 7.1. Interactive when awake. 08/09: Transfusion 1u PRBC (6U total since admit) 08/10-08/13: TPN and precedex, vent. Tmax 101F overnight. Hb 8.2. HD cath out since 08/11. Alert. On vent SIMV 35% FiO2. Surgery today planned lap ronel with cholangiogram and pancreatic necrosectomy. Plan: Cont vent weaning, dialysis - will need replacement catheter tomorrow Surgery today Trach shield during day if ok with pulm. Would recommend ABG after 4 hours to r/o CO2 retention, however and still vent overnight Vitals Vitals Vital Signs Date Time Temp Pulse Resp B/P (MAP) Pulse Ox O2 Delivery O2 Flow Rate FiO2 08/15/19 07:48 100 Ventilator 08/15/19 06:00 74 18 130/68 (88) 08/15/19 04:00 100.2 100.2 Physical Exam Physical Exam GENERAL: Propped up in bed, awake, weak appearing HEENT: Pupils equal, + NGT, oral cavity dry NECK: Trach/vent LUNGS: rhonchi HEART: S1, S2, regular ABDOMEN: Distended, tender, hypoactive BS, : Lind (08/01) EXTREMITIES: Generalized edema, no cyanosis, SCDs bilaterally DERMATOLOGIC: Warm and dry. No generalized rash. CENTRAL NERVOUS SYSTEM: Extremely weak, nods to few simple questions HDC has been removed [facility]J (08/01) clean General: Alert, Cooperative, No acute distress Heart: Regular rate, Normal S1, Other (increased rate) Lungs: Crackles, Other (dimished in BLL nc at perrl nose clear neck trach site ok no lad no thyromegaly) Abdomen: Soft, Other (mild TTP) Extremities: Other (ANASARCA) Skin: Other (mottling noted to extremities ) Labs LABS Laboratory Tests Test 08/14/19 12:09 08/14/19 17:28 08/15/19 00:41 08/15/19 04:30 Glucose (Fingerstick) 148 mg/dL (70-99) 144 mg/dL (70-99) 134 mg/dL (70-99) White Blood Count 9.2 x10^3/uL (4.0-11.0) Red Blood Count 2.72 x10^6/uL (3.50-5.40) Hemoglobin 8.2 g/dL (12.0-15.5) Hematocrit 24.6 % (36.0-47.0) Mean Corpuscular Volume 90 fL (79-100) Mean Corpuscular Hemoglobin 30 pg (25-35) Mean Corpuscular Hemoglobin Concent 33 g/dL (31-37) Red Cell Distribution Width 18.4 % (11.5-14.5) Platelet Count 323 x10^3/uL (140-400) Neutrophils (%) (Auto) 78 % (31-73) Lymphocytes (%) (Auto) 15 % (24-48) Monocytes (%) (Auto) 6 % (0-9) Eosinophils (%) (Auto) 1 % (0-3) Basophils (%) (Auto) 0 % (0-3) Neutrophils # (Auto) 7.1 x10^3/uL (1.8-7.7) Lymphocytes # (Auto) 1.4 x10^3/uL (1.0-4.8) Monocytes # (Auto) 0.5 x10^3/uL (0.0-1.1) Eosinophils # (Auto) 0.1 x10^3/uL (0.0-0.7) Basophils # (Auto) 0.0 x10^3/uL (0.0-0.2) Sodium Level 149 mmol/L (136-145) Potassium Level 3.6 mmol/L (3.5-5.1) Chloride Level 111 mmol/L (98-107) Carbon Dioxide Level 30 mmol/L (21-32) Anion Gap 8 (6-14) Blood Urea Nitrogen 57 mg/dL (7-20) Creatinine 1.1 mg/dL (0.6-1.0) Estimated GFR (Cockcroft-Gault) 52.8 Glucose Level 123 mg/dL (70-99) Calcium Level 8.5 mg/dL (8.5-10.1) Creatine Kinase 24 U/L (26-192) Assessment and Plan Assessmemt and Plan Problems Medical Problems: (1) Acute pancreatitis Status: Acute (2) Cholelithiasis Status: Acute Comment Review of Relevant I have reviewed the following items kolby (where applicable) has been applied. Labs Laboratory Tests Test 08/13/19 12:02 08/13/19 17:54 08/14/19 00:25 08/14/19 05:45 Glucose (Fingerstick) 142 mg/dL (70-99) 128 mg/dL (70-99) 129 mg/dL (70-99) 137 mg/dL (70-99) Test 08/14/19 06:00 08/14/19 12:09 08/14/19 17:28 08/15/19 00:41 White Blood Count 9.3 x10^3/uL (4.0-11.0) Red Blood Count 2.60 x10^6/uL (3.50-5.40) Hemoglobin 7.7 g/dL (12.0-15.5) Hematocrit 23.6 % (36.0-47.0) Mean Corpuscular Volume 91 fL (79-100) Mean Corpuscular Hemoglobin 30 pg (25-35) Mean Corpuscular Hemoglobin Concent 33 g/dL (31-37) Red Cell Distribution Width 18.3 % (11.5-14.5) Platelet Count 286 x10^3/uL (140-400) Neutrophils (%) (Auto) 79 % (31-73) Lymphocytes (%) (Auto) 14 % (24-48) Monocytes (%) (Auto) 6 % (0-9) Eosinophils (%) (Auto) 1 % (0-3) Basophils (%) (Auto) 0 % (0-3) Neutrophils # (Auto) 7.4 x10^3/uL (1.8-7.7) Lymphocytes # (Auto) 1.2 x10^3/uL (1.0-4.8) Monocytes # (Auto) 0.6 x10^3/uL (0.0-1.1) Eosinophils # (Auto) 0.1 x10^3/uL (0.0-0.7) Basophils # (Auto) 0.0 x10^3/uL (0.0-0.2) Sodium Level 149 mmol/L (136-145) Potassium Level 3.5 mmol/L (3.5-5.1) Chloride Level 110 mmol/L (98-107) Carbon Dioxide Level 28 mmol/L (21-32) Anion Gap 11 (6-14) Blood Urea Nitrogen 60 mg/dL (7-20) Creatinine 1.0 mg/dL (0.6-1.0) Estimated GFR (Cockcroft-Gault) 58.9 Glucose Level 142 mg/dL (70-99) Calcium Level 8.6 mg/dL (8.5-10.1) Glucose (Fingerstick) 148 mg/dL (70-99) 144 mg/dL (70-99) 134 mg/dL (70-99) Test 08/15/19 04:30 White Blood Count 9.2 x10^3/uL (4.0-11.0) Red Blood Count 2.72 x10^6/uL (3.50-5.40) Hemoglobin 8.2 g/dL (12.0-15.5) Hematocrit 24.6 % (36.0-47.0) Mean Corpuscular Volume 90 fL (79-100) Mean Corpuscular Hemoglobin 30 pg (25-35) Mean Corpuscular Hemoglobin Concent 33 g/dL (31-37) Red Cell Distribution Width 18.4 % (11.5-14.5) Platelet Count 323 x10^3/uL (140-400) Neutrophils (%) (Auto) 78 % (31-73) Lymphocytes (%) (Auto) 15 % (24-48) Monocytes (%) (Auto) 6 % (0-9) Eosinophils (%) (Auto) 1 % (0-3) Basophils (%) (Auto) 0 % (0-3) Neutrophils # (Auto) 7.1 x10^3/uL (1.8-7.7) Lymphocytes # (Auto) 1.4 x10^3/uL (1.0-4.8) Monocytes # (Auto) 0.5 x10^3/uL (0.0-1.1) Eosinophils # (Auto) 0.1 x10^3/uL (0.0-0.7) Basophils # (Auto) 0.0 x10^3/uL (0.0-0.2) Sodium Level 149 mmol/L (136-145) Potassium Level 3.6 mmol/L (3.5-5.1) Chloride Level 111 mmol/L (98-107) Carbon Dioxide Level 30 mmol/L (21-32) Anion Gap 8 (6-14) Blood Urea Nitrogen 57 mg/dL (7-20) Creatinine 1.1 mg/dL (0.6-1.0) Estimated GFR (Cockcroft-Gault) 52.8 Glucose Level 123 mg/dL (70-99) Calcium Level 8.5 mg/dL (8.5-10.1) Creatine Kinase 24 U/L (26-192) Laboratory Tests Test 08/14/19 12:09 08/14/19 17:28 08/15/19 00:41 08/15/19 04:30 Glucose (Fingerstick) 148 mg/dL (70-99) 144 mg/dL (70-99) 134 mg/dL (70-99) White Blood Count 9.2 x10^3/uL (4.0-11.0) Red Blood Count 2.72 x10^6/uL (3.50-5.40) Hemoglobin 8.2 g/dL (12.0-15.5) Hematocrit 24.6 % (36.0-47.0) Mean Corpuscular Volume 90 fL (79-100) Mean Corpuscular Hemoglobin 30 pg (25-35) Mean Corpuscular Hemoglobin Concent 33 g/dL (31-37) Red Cell Distribution Width 18.4 % (11.5-14.5) Platelet Count 323 x10^3/uL (140-400) Neutrophils (%) (Auto) 78 % (31-73) Lymphocytes (%) (Auto) 15 % (24-48) Monocytes (%) (Auto) 6 % (0-9) Eosinophils (%) (Auto) 1 % (0-3) Basophils (%) (Auto) 0 % (0-3) Neutrophils # (Auto) 7.1 x10^3/uL (1.8-7.7) Lymphocytes # (Auto) 1.4 x10^3/uL (1.0-4.8) Monocytes # (Auto) 0.5 x10^3/uL (0.0-1.1) Eosinophils # (Auto) 0.1 x10^3/uL (0.0-0.7) Basophils # (Auto) 0.0 x10^3/uL (0.0-0.2) Sodium Level 149 mmol/L (136-145) Potassium Level 3.6 mmol/L (3.5-5.1) Chloride Level 111 mmol/L (98-107) Carbon Dioxide Level 30 mmol/L (21-32) Anion Gap 8 (6-14) Blood Urea Nitrogen 57 mg/dL (7-20) Creatinine 1.1 mg/dL (0.6-1.0) Estimated GFR (Cockcroft-Gault) 52.8 Glucose Level 123 mg/dL (70-99) Calcium Level 8.5 mg/dL (8.5-10.1) Creatine Kinase 24 U/L (26-192) Microbiology 08/03/19 Aerobic and Anaerobic Culture - Final, Complete 08/03/19 Anaerobic Culture Result 1 (ALEXANDRA) - Final, Complete 08/03/19 Aerobic Culture - Final, Complete 08/03/19 Aerobic Culture Result 1 (ALEXANDRA) - Final, Complete 08/03/19 Gram Stain - Final, Complete 08/03/19 Gram Stain Result 1 (ALEXANDRA) - Final, Complete 08/03/19 Gram Stain Result 2 (ALEXANDRA) - Final, Complete 08/02/19 Blood Culture - Final, Complete NO GROWTH AFTER 5 DAYS 07/31/19 Urine Culture - Final, Complete 07/31/19 Urine Culture Result 1 (ALEXANDRA) - Final, Complete Medications Current Medications Sodium Chloride 1,000 ml @ 1,000 mls/hr Q1H IV Last administered on 07/04/19at 03:00; Start 07/04/19 at 03:00; Stop 07/04/19 at 03:59; Status DC Ondansetron HCl (Zofran) 4 mg 1X ONCE IVP Last administered on 07/04/19at 03:27; Start 07/04/19 at 03:00; Stop 07/04/19 at 03:01; Status DC Morphine Sulfate (Morphine Sulfate) 4 mg 1X ONCE IV ; Start 07/04/19 at 03:00; Stop 07/04/19 at 03:01; Status Cancel Ketorolac Tromethamine (Toradol 30mg Vial) 30 mg 1X ONCE IV Last administered on 07/04/19at 02:54; Start 07/04/19 at 03:00; Stop 07/04/19 at 03:01; Status DC Fentanyl Citrate (Fentanyl 2ml Vial) 25 mcg 1X ONCE IVP Last administered on 07/04/19at 03:23; Start 07/04/19 at 03:30; Stop 07/04/19 at 03:31; Status DC Fentanyl Citrate (Fentanyl 2ml Vial) 100 mcg STK-MED ONCE .ROUTE ; Start 07/04/19 at 03:18; Stop 07/04/19 at 03:18; Status DC Iohexol (Omnipaque 350 Mg/ml) 90 ml 1X ONCE IV Last administered on 07/04/19at 03:25; Start 07/04/19 at 03:30; Stop 07/04/19 at 03:31; Status DC Info (CONTRAST GIVEN -- Rx MONITORING) 1 each PRN DAILY PRN MC SEE COMMENTS; Start 07/04/19 at 03:30; Stop 07/06/19 at 03:29; Status DC Hydromorphone HCl (Dilaudid) 0.5 mg 1X ONCE IV Last administered on 07/04/19at 03:55; Start 07/04/19 at 04:30; Stop 07/04/19 at 04:32; Status DC Ondansetron HCl (Zofran) 4 mg PRN Q8HRS PRN IV NAUSEA/VOMITING 1ST CHOICE; Start 07/04/19 at 05:00; Stop 07/04/19 at 09:27; Status DC Morphine Sulfate (Morphine Sulfate) 2 mg PRN Q2HR PRN IV SEVERE PAIN 7-10 Last administered on 07/05/19at 12:26; Start 07/04/19 at 05:00; Stop 07/05/19 at 14:15; Status DC Sodium Chloride 1,000 ml @ 125 mls/hr Q8H IV Last administered on 07/04/19at 20:56; Start 07/04/19 at 05:00; Stop 07/05/19 at 04:59; Status DC Hydromorphone HCl (Dilaudid) 0.5 mg PRN Q3HRS PRN IV SEVERE PAIN 7-10 Last administered on 07/05/19at 10:06; Start 07/04/19 at 05:00; Stop 07/05/19 at 12:01; Status DC Piperacillin Sod/ Tazobactam Sod 4.5 gm/Sodium Chloride 100 ml @ 200 mls/hr 1X ONCE IV Last administered on 07/04/19at 05:44; Start 07/04/19 at 06:00; Stop 07/04/19 at 06:29; Status DC Ondansetron HCl (Zofran) 4 mg PRN Q4HRS PRN IV NAUSEA/VOMITING 1ST CHOICE Last administered on 08/12/19at 11:01; Start 07/04/19 at 09:30 Insulin Human Lispro (HumaLOG) 0-9 UNITS Q6HRS SQ Last administered on 08/12/19at 13:19; Start 07/04/19 at 09:30 Dextrose (Dextrose 50%-Water Syringe) 12.5 gm PRN Q15MIN PRN IV SEE COMMENTS; Start 07/04/19 at 09:30 Pantoprazole Sodium (PROTONIX VIAL for IV PUSH) 40 mg DAILYAC IVP Last administered on 08/15/19at 08:08; Start 07/04/19 at 11:30 Prochlorperazine Edisylate (Compazine) 10 mg PRN Q6HRS PRN IV NAUSEA/VOMITING, 2nd CHOICE Last administered on 08/12/19at 08:42; Start 07/04/19 at 17:45 Atenolol (Tenormin) 100 mg DAILY PO ; Start 07/05/19 at 09:00; Stop 07/04/19 at 20:08; Status DC Metoprolol Tartrate (Lopressor Vial) 2.5 mg Q6HRS IVP Last administered on 07/05/19at 05:51; Start 07/04/19 at 20:15; Stop 07/05/19 at 10:02; Status DC Metoprolol Tartrate (Lopressor Vial) 5 mg Q6HRS IVP Last administered on 07/14/19at 00:12; Start 07/05/19 at 10:15; Stop 07/16/19 at 08:48; Status DC Hydromorphone HCl (Dilaudid) 1 mg PRN Q3HRS PRN IV SEVERE PAIN 7-10 Last administered on 07/11/19at 05:13; Start 07/05/19 at 12:00; Stop 07/19/19 at 00:25; Status DC Lidocaine HCl (Buffered Lidocaine 1%) 3 ml STK-MED ONCE .ROUTE ; Start 07/05/19 at 12:55; Stop 07/05/19 at 12:56; Status DC Albumin Human 500 ml @ 125 mls/hr 1X ONCE IV Last administered on 07/05/19at 14:33; Start 07/05/19 at 14:30; Stop 07/05/19 at 18:32; Status DC Norepinephrine Bitartrate 8 mg/ Dextrose 258 ml @ 17.299 mls/ hr CONT PRN IV PER PROTOCOL Last administered on 08/02/19at 12:48; Start 07/05/19 at 15:30; Stop 08/05/19 at 09:19; Status DC Sodium Chloride 1,000 ml @ 125 mls/hr Q8H IV Last administered on 07/05/19at 21:04; Start 07/05/19 at 16:00; Stop 07/06/19 at 02:42; Status DC Albumin Human 500 ml @ 125 mls/hr PRN BID PRN IV After every 2L NSS & BP < 90mm Last administered on 07/20/19at 14:21; Start 07/05/19 at 16:00 Iohexol (Omnipaque 300 Mg/ml) 60 ml 1X ONCE IV Last administered on 07/05/19at 17:20; Start 07/05/19 at 17:00; Stop 07/05/19 at 17:01; Status DC Info (CONTRAST GIVEN -- Rx MONITORING) 1 each PRN DAILY PRN MC SEE COMMENTS; Start 07/05/19 at 17:00; Stop 07/07/19 at 16:59; Status DC Meropenem 1 gm/ Sodium Chloride 100 ml @ 200 mls/hr Q8HRS IV Last administered on 07/06/19at 05:45; Start 07/05/19 at 20:00; Stop 07/06/19 at 08:48; Status DC Furosemide (Lasix) 40 mg 1X ONCE IVP Last administered on 07/05/19at 22:12; Start 07/05/19 at 22:30; Stop 07/05/19 at 22:31; Status DC Calcium Chloride 1000 mg/Sodium Chloride 110 ml @ 220 mls/hr 1X ONCE IV Last administered on 07/05/19at 22:11; Start 07/05/19 at 22:30; Stop 07/05/19 at 22:59; Status DC Albuterol Sulfate (Ventolin Neb Soln) 2.5 mg 1X ONCE NEB Last administered on 07/06/19at 00:56; Start 07/05/19 at 22:30; Stop 07/05/19 at 22:31; Status DC Insulin Human Regular (HumuLIN R VIAL) 5 unit 1X ONCE IV Last administered on 07/05/19at 22:14; Start 07/05/19 at 22:30; Stop 07/05/19 at 22:31; Status DC Magnesium Sulfate 50 ml @ 25 mls/hr 1X ONCE IV Last administered on 07/06/19at 02:57; Start 07/06/19 at 03:00; Stop 07/06/19 at 04:59; Status DC Calcium Gluconate 1000 mg/Sodium Chloride 110 ml @ 220 mls/hr 1X ONCE IV Last administered on 07/06/19at 02:46; Start 07/06/19 at 03:00; Stop 07/06/19 at 03:29; Status DC Sodium Chloride 1,000 ml @ 200 mls/hr Q5H IV Last administered on 07/06/19at 02:46; Start 07/06/19 at 03:00; Stop 07/06/19 at 10:21; Status DC Calcium Gluconate 1000 mg/Sodium Chloride 110 ml @ 220 mls/hr 1X ONCE IV Last administered on 07/06/19at 03:21; Start 07/06/19 at 03:30; Stop 07/06/19 at 03:59; Status DC Sodium Bicarbonate 50 meq/Sodium Chloride 1,050 ml @ 75 mls/hr Q14H IV Last administered on 07/10/19at 21:10; Start 07/06/19 at 07:30; Stop 07/11/19 at 10:28; Status DC Calcium Gluconate 2000 mg/Sodium Chloride 120 ml @ 220 mls/hr 1X ONCE IV Last administered on 07/06/19at 09:05; Start 07/06/19 at 07:30; Stop 07/06/19 at 08:02; Status DC Lidocaine HCl (Xylocaine-Mpf 1% 2ml Vial) 2 ml STK-MED ONCE .ROUTE ; Start 07/06/19 at 08:47; Stop 07/06/19 at 08:47; Status DC Meropenem 500 mg/ Sodium Chloride 50 ml @ 100 mls/hr Q12HR IV Last administered on 07/11/19at 21:01; Start 07/06/19 at 18:00; Stop 07/12/19 at 07:58; Status DC Lidocaine HCl (Buffered Lidocaine 1%) 3 ml STK-MED ONCE .ROUTE ; Start 07/06/19 at 09:46; Stop 07/06/19 at 09:46; Status DC Lidocaine HCl (Buffered Lidocaine 1%) 6 ml 1X ONCE INJ Last administered on 07/06/19at 10:26; Start 07/06/19 at 10:15; Stop 07/06/19 at 10:16; Status DC Info (Tpn Per Pharmacy) 1 each PRN DAILY PRN MC SEE COMMENTS Last administered on 08/14/19at 13:34; Start 07/06/19 at 12:00 Sodium Chloride 1,000 ml @ 1,000 mls/hr Q1H PRN IV hypotension; Start 07/06/19 at 12:07; Stop 07/06/19 at 18:06; Status DC Diphenhydramine HCl (Benadryl) 25 mg 1X PRN PRN IV ITCHING; Start 07/06/19 at 12:15; Stop 07/07/19 at 12:14; Status DC Diphenhydramine HCl (Benadryl) 25 mg 1X PRN PRN IV ITCHING; Start 07/06/19 at 12:15; Stop 07/07/19 at 12:14; Status DC Sodium Chloride 1,000 ml @ 400 mls/hr Q2H30M PRN IV PATENCY; Start 07/06/19 at 12:07; Stop 07/07/19 at 00:06; Status DC Info (PHARMACY MONITORING -- do not chart) 1 each PRN DAILY PRN MC SEE COMMENTS; Start 07/06/19 at 12:15; Stop 07/08/19 at 08:13; Status DC Sodium Chloride 90 meq/Calcium Gluconate 10 meq/ Multivitamins 10 ml/Chromium/ Copper/Manganese/ Seleni/Zn 1 ml/ Total Parenteral Nutrition/Amino Acids/ Dextrose/ Fat Emulsion Intravenous 55.005 ml @ 2.292 mls/hr TPN CONT IV ; Start 07/06/19 at 22:00; Stop 07/06/19 at 12:33; Status DC Info (Tpn Per Pharmacy) 1 each PRN DAILY PRN MC SEE COMMENTS; Start 07/06/19 at 12:30; Status UNV Sodium Chloride 90 meq/Calcium Gluconate 10 meq/ Multivitamins 10 ml/Chromium/ Copper/Manganese/ Seleni/Zn 0.5 ml/ Total Parenteral Nutrition/Amino Acids/Dextrose/ Fat Emulsion Intravenous 1,512 ml @ 63 mls/hr TPN CONT IV Last administered on 07/06/19at 22:06; Start 07/06/19 at 22:00; Stop 07/07/19 at 21:59; Status DC Calcium Carbonate/ Glycine (Tums) 500 mg PRN AFTMEALHC PRN PO INDIGESTION; Start 07/06/19 at 17:45 Calcium Gluconate (Calcium Gluconate) 2,000 mg 1X ONCE IVP Last administered on 07/07/19at 02:19; Start 07/07/19 at 02:15; Stop 07/07/19 at 02:16; Status DC Calcium Chloride 3000 mg/Sodium Chloride 1,030 ml @ 50 mls/hr [id number] IV Last administered on 07/09/19at 02:17; Start 07/07/19 at 08:00; Stop 07/09/19 at 15:23; Status DC Lorazepam (Ativan Inj) 1 mg PRN Q4HRS PRN IVP ANXIETY / AGITATION, 2nd choic Last administered on 08/05/19at 03:51; Start 07/07/19 at 09:00; Stop 08/05/19 at 09:19; Status DC Sodium Chloride 1,000 ml @ 1,000 mls/hr Q1H PRN IV hypotension; Start 07/07/19 at 08:56; Stop 07/07/19 at 14:55; Status DC Albumin Human 200 ml @ 200 mls/hr 1X PRN PRN IV Hypotension; Start 07/07/19 at 09:00; Stop 07/07/19 at 14:59; Status DC Diphenhydramine HCl (Benadryl) 25 mg 1X PRN PRN IV ITCHING; Start 07/07/19 at 09:00; Stop 07/08/19 at 08:59; Status DC Diphenhydramine HCl (Benadryl) 25 mg 1X PRN PRN IV ITCHING; Start 07/07/19 at 09:00; Stop 07/08/19 at 08:59; Status DC Sodium Chloride 1,000 ml @ 400 mls/hr Q2H30M PRN IV PATENCY; Start 07/07/19 at 08:56; Stop 07/07/19 at 20:55; Status DC Info (PHARMACY MONITORING -- do not chart) 1 each PRN DAILY PRN MC SEE COMMENTS; Start 07/07/19 at 09:00; Status UNV Info (PHARMACY MONITORING -- do not chart) 1 each PRN DAILY PRN MC SEE COMMENTS; Start 07/07/19 at 09:00; Stop 07/08/19 at 08:13; Status DC Digoxin (Lanoxin) 500 mcg 1X ONCE IV Last administered on 07/07/19at 10:04; Start 07/07/19 at 10:00; Stop 07/07/19 at 10:01; Status DC Digoxin (Lanoxin) 125 mcg 1X ONCE IV Last administered on 07/07/19at 17:10; Start 07/07/19 at 18:00; Stop 07/07/19 at 18:01; Status DC Magnesium Sulfate 100 ml @ 25 mls/hr 1X ONCE IV Last administered on 07/07/19at 12:48; Start 07/07/19 at 13:00; Stop 07/07/19 at 16:59; Status DC Sodium Chloride 90 meq/Magnesium Sulfate 10 meq/ Calcium Gluconate 20 meq/ Multivitamins 10 ml/Chromium/ Copper/Manganese/ Seleni/Zn 0.5 ml/ Total Parenteral Nutrition/Amino Acids/Dextrose/ Fat Emulsion Intravenous 1,512 ml @ 63 mls/hr TPN CONT IV Last administered on 07/07/19at 22:25; Start 07/07/19 at 22:00; Stop 07/08/19 at 21:59; Status DC Sodium Chloride 1,000 ml @ 1,000 mls/hr Q1H PRN IV hypotension; Start 07/08/19 at 08:05; Stop 07/08/19 at 14:04; Status DC Albumin Human 200 ml @ 200 mls/hr 1X ONCE IV Last administered on 07/08/19at 08:57; Start 07/08/19 at 08:15; Stop 07/08/19 at 09:14; Status DC Diphenhydramine HCl (Benadryl) 25 mg 1X PRN PRN IV ITCHING; Start 07/08/19 at 08:15; Stop 07/09/19 at 08:14; Status DC Diphenhydramine HCl (Benadryl) 25 mg 1X PRN PRN IV ITCHING; Start 07/08/19 at 08:15; Stop 07/09/19 at 08:14; Status DC Sodium Chloride 1,000 ml @ 400 mls/hr Q2H30M PRN IV PATENCY; Start 07/08/19 at 08:05; Stop 07/08/19 at 20:04; Status DC Info (PHARMACY MONITORING -- do not chart) 1 each PRN DAILY PRN MC SEE COMMENTS; Start 07/08/19 at 08:15; Stop 07/12/19 at 07:57; Status DC Sodium Chloride 90 meq/Potassium Chloride 15 meq/ Potassium Phosphate 10 mmol/ Magnesium Sulfate 10 meq/Calcium Gluconate 20 meq/ Multivitamins 10 ml/Chromium/ Copper/Manganese/ Seleni/Zn 0.5 ml/ Total Parenteral Nutrition/Amino Acids/Dextrose/ Fat Emulsion Intravenous 1,512 ml @ 63 mls/hr TPN CONT IV Last administered on 07/08/19at 21:01; Start 07/08/19 at 22:00; Stop 07/09/19 at 21:59; Status DC Potassium Chloride/Water 100 ml @ 100 mls/hr 1X ONCE IV Last administered on 07/08/19at 14:09; Start 07/08/19 at 14:00; Stop 07/08/19 at 14:59; Status DC Benzocaine (Hurricaine One) 1 spray 1X ONCE MM Last administered on 07/08/19at 16:38; Start 07/08/19 at 14:30; Stop 07/08/19 at 14:31; Status DC Lidocaine HCl (Glydo (Lidocaine) Jelly) 1 ramu 1X ONCE MM Last administered on 07/08/19at 16:38; Start 07/08/19 at 14:30; Stop 07/08/19 at 14:31; Status DC Linezolid/Dextrose 300 ml @ 300 mls/hr Q12HR IV Last administered on 07/14/19at 21:04; Start 07/08/19 at 20:00; Stop 07/15/19 at 07:50; Status DC Acetaminophen (Tylenol) 650 mg PRN Q6HRS PRN PO MILD PAIN / TEMP; Start 07/09/19 at 03:30; Stop 07/09/19 at 03:36; Status DC Acetaminophen (Tylenol) 650 mg PRN Q6HRS PRN PEG MILD PAIN / TEMP Last administered on 08/04/19at 19:56; Start 07/09/19 at 03:36 Sodium Chloride 1,000 ml @ 1,000 mls/hr Q1H PRN IV hypotension; Start 07/09/19 at 07:50; Stop 07/09/19 at 13:49; Status DC Albumin Human 200 ml @ 200 mls/hr 1X PRN PRN IV Hypotension; Start 07/09/19 at 08:00; Stop 07/09/19 at 13:59; Status DC Sodium Chloride (Normal Saline Flush) 10 ml 1X PRN PRN IV AP catheter pack; Start 07/09/19 at 08:00; Stop 07/10/19 at 07:59; Status DC Sodium Chloride (Normal Saline Flush) 10 ml 1X PRN PRN IV [employer] catheter pack; Start 07/09/19 at 08:00; Stop 07/10/19 at 07:59; Status DC Sodium Chloride 1,000 ml @ 400 mls/hr Q2H30M PRN IV PATENCY; Start 07/09/19 at 07:50; Stop 07/09/19 at 19:49; Status DC Info (PHARMACY MONITORING -- do not chart) 1 each PRN DAILY PRN MC SEE COMMENTS; Start 07/09/19 at 08:00; Status UNV Info (PHARMACY MONITORING -- do not chart) 1 each PRN DAILY PRN MC SEE COMMENTS; Start 07/09/19 at 08:00; Stop 07/11/19 at 08:25; Status DC Sodium Chloride 90 meq/Potassium Chloride 15 meq/ Potassium Phosphate 10 mmol/ Magnesium Sulfate 10 meq/Calcium Gluconate 20 meq/ Multivitamins 10 ml/Chromium/ Copper/Manganese/ Seleni/Zn 0.5 ml/ Total Parenteral Nutrition/Amino Acids/Dextrose/ Fat Emulsion Intravenous 1,512 ml @ 63 mls/hr TPN CONT IV Last administered on 07/09/19at 20:57; Start 07/09/19 at 22:00; Stop 07/10/19 at 21:59; Status DC Sodium Chloride 90 meq/Potassium Chloride 15 meq/ Potassium Phosphate 15 mmol/ Magnesium Sulfate 10 meq/Calcium Gluconate 20 meq/ Multivitamins 10 ml/Chromium/ Copper/Manganese/ Seleni/Zn 0.5 ml/ Total Parenteral Nutrition/Amino Acid s/Dextrose/ Fat Emulsion Intravenous 1,512 ml @ 63 mls/hr TPN CONT IV ; Start 07/10/19 at 22:00; Stop 07/10/19 at 14:16; Status DC Sodium Chloride 90 meq/Potassium Chloride 15 meq/ Potassium Phosphate 15 mmol/ Magnesium Sulfate 10 meq/Calcium Gluconate 20 meq/ Multivitamins 10 ml/Chromium/ Copper/Manganese/ Seleni/Zn 0.5 ml/ Total Parenteral Nutrition/Amino Acids/Dextrose/ Fat Emulsion Intravenous 1,200 ml @ 50 mls/hr TPN CONT IV ; Start 07/10/19 at 22:00; Stop 07/10/19 at 14:17; Status DC Sodium Chloride 90 meq/Potassium Chloride 15 meq/ Potassium Phosphate 10 mmol/ Magnesium Sulfate 10 meq/Calcium Gluconate 20 meq/ Multivitamins 10 ml/Chromium/ Copper/Manganese/ Seleni/Zn 0.5 ml/ Total Parenteral Nutrition/Amino Acids/Dextrose/ Fat Emulsion Intravenous 1,200 ml @ 50 mls/hr TPN CONT IV Last administered on 07/10/19at 23:29; Start 07/10/19 at 22:00; Stop 07/11/19 at 21:59; Status DC Sodium Chloride 1,000 ml @ 1,000 mls/hr Q1H PRN IV hypotension; Start 07/11/19 at 07:28; Stop 07/11/19 at 13:27; Status DC Albumin Human 200 ml @ 200 mls/hr 1X ONCE IV Last administered on 07/11/19at 08:51; Start 07/11/19 at 07:30; Stop 07/11/19 at 08:29; Status DC Diphenhydramine HCl (Benadryl) 25 mg 1X PRN PRN IV ITCHING; Start 07/11/19 at 07:30; Stop 07/12/19 at 07:29; Status DC Diphenhydramine HCl (Benadryl) 25 mg 1X PRN PRN IV ITCHING; Start 07/11/19 at 07:30; Stop 07/12/19 at 07:29; Status DC Sodium Chloride 1,000 ml @ 400 mls/hr Q2H30M PRN IV PATENCY; Start 07/11/19 at 07:28; Stop 07/11/19 at 19:27; Status DC Info (PHARMACY MONITORING -- do not chart) 1 each PRN DAILY PRN MC SEE COMMENTS; Start 07/11/19 at 07:30; Stop 07/22/19 at 13:01; Status DC Metronidazole 100 ml @ 100 mls/hr Q6HRS IV Last administered on 07/27/19at 06:26; Start 07/11/19 at 08:30; Stop 07/27/19 at 09:58; Status DC Micafungin Sodium 100 mg/Dextrose 100 ml @ 100 mls/hr Q24H IV Last administered on 08/15/19at 08:09; Start 07/11/19 at 09:00 Propofol 0 ml @ As Directed STK-MED ONCE IV ; Start 07/11/19 at 07:53; Stop 07/11/19 at 07:53; Status DC Etomidate (Amidate) 20 mg STK-MED ONCE IV ; Start 07/11/19 at 07:53; Stop 07/11/19 at 07:54; Status DC Midazolam HCl (Versed) 5 mg STK-MED ONCE .ROUTE ; Start 07/11/19 at 07:57; Stop 07/11/19 at 07:57; Status DC Fentanyl Citrate 30 ml @ 0 mls/hr CONT PRN IV SEE PROTOCOL Last administered on 08/05/19at 06:12; Start 07/11/19 at 08:15; Stop 08/05/19 at 09:19; Status DC Artificial Tears (Artificial Tears) 1 drop PRN Q1HR PRN OU DRY EYE, 1st choice; Start 07/11/19 at 08:15 Midazolam HCl 50 mg/Sodium Chloride 50 ml @ 0 mls/hr CONT PRN IV SEE PROTOCOL Last administered on 07/14/19at 22:39; Start 07/11/19 at 08:15; Stop 07/16/19 at 15:59; Status DC Etomidate (Amidate) 8 mg 1X ONCE IV Last administered on 07/11/19at 08:33; Start 07/11/19 at 08:30; Stop 07/11/19 at 08:31; Status DC Succinylcholine Chloride (Anectine) 120 mg 1X ONCE IV Last administered on 07/11/19at 08:34; Start 07/11/19 at 08:30; Stop 07/11/19 at 08:31; Status DC Midazolam HCl (Versed) 5 mg 1X ONCE IV ; Start 07/11/19 at 08:30; Stop 07/11/19 at 08:31; Status DC Potassium Chloride 15 meq/ Bicarbonate Dialysis Soln w/ out KCl 5,007.5 ml @ 1,000 mls/ hr Q5H1M IV Last administered on 07/12/19at 11:11; Start 07/11/19 at 12:00; Stop 07/12/19 at 11:15; Status DC Potassium Chloride 15 meq/ Bicarbonate Dialysis Soln w/ out KCl 5,007.5 ml @ 1,000 mls/ hr Q5H1M IV Last administered on 07/12/19at 11:12; Start 07/11/19 at 12:00; Stop 07/12/19 at 11:17; Status DC Potassium Chloride 15 meq/ Bicarbonate Dialysis Soln w/ out KCl 5,007.5 ml @ 1,000 mls/ hr Q5H1M IV Last administered on 07/12/19at 11:11; Start 07/11/19 at 12:00; Stop 07/12/19 at 11:19; Status DC Sodium Chloride 90 meq/Potassium Chloride 15 meq/ Potassium Phosphate 10 mmol/ Magnesium Sulfate 10 meq/Calcium Gluconate 20 meq/ Multivitamins 10 ml/Chromium/ Copper/Manganese/ Seleni/Zn 0.5 ml/ Total Parenteral Nutrition/Amino Acids/Dextrose/ Fat Emulsion Intravenous 1,400 ml @ 58.333 mls/ hr TPN CONT IV Last administered on 07/11/19at 21:42; Start 07/11/19 at 22:00; Stop 07/12/19 at 21:59; Status DC Heparin Sodium (Porcine) (Heparin Sodium) 5,000 unit Q8HRS SQ Last administered on 07/16/19at 05:55; Start 07/11/19 at 15:00; Stop 07/16/19 at 13:28; Status DC Meropenem 500 mg/ Sodium Chloride 50 ml @ 100 mls/hr Q6HRS IV Last administered on 07/13/19at 06:00; Start 07/12/19 at 09:00; Stop 07/13/19 at 07:29; Status DC Potassium Phosphate 20 mmol/ Sodium Chloride 106.6667 ml @ 51.667 m... 1X ONCE IV Last administered on 07/12/19at 11:22; Start 07/12/19 at 10:15; Stop 07/12/19 at 12:18; Status DC Acetaminophen (Tylenol Supp) 650 mg PRN Q6HRS PRN [place] MILD PAIN / TEMP > 100.3'F Last administered on 08/15/19at 00:32; Start 07/12/19 at 10:30 Potassium Chloride/Water 100 ml @ 100 mls/hr Q1H IV Last administered on 07/12/19at 12:12; Start 07/12/19 at 11:00; Stop 07/12/19 at 12:59; Status DC Potassium Chloride 20 meq/ Bicarbonate Dialysis Soln w/ out KCl 5,010 ml @ 1,000 mls/hr Q5H1M IV Last administered on 07/13/19at 08:48; Start 07/12/19 at 12:00; Stop 07/13/19 at 13:03; Status DC Potassium Chloride 20 meq/ Bicarbonate Dialysis Soln w/ out KCl 5,010 ml @ 1,000 mls/hr Q5H1M IV Last administered on 07/17/19at 14:52; Start 07/12/19 at 11:30; Stop 07/17/19 at 19:59; Status DC Potassium Chloride 20 meq/ Bicarbonate Dialysis Soln w/ out KCl 5,010 ml @ 1,000 mls/hr Q5H1M IV Last administered on 07/17/19at 14:53; Start 07/12/19 at 11:30; Stop 07/17/19 at 19:59; Status DC Sodium Chloride 90 meq/Potassium Chloride 15 meq/ Potassium Phosphate 15 mmol/ Magnesium Sulfate 10 meq/Calcium Gluconate 15 meq/ Multivitamins 10 ml/Chromium/ Copper/Manganese/ Seleni/Zn 0.5 ml/ Total Parenteral Nutrition/Amino Acids/Dextrose/ Fat Emulsion Intravenous 1,400 ml @ 58.333 mls/ hr TPN CONT IV Last administered on 07/12/19at 22:17; Start 07/12/19 at 22:00; Stop 07/13/19 at 21:59; Status DC Cefepime HCl (Maxipime) 2 gm Q12HR IVP Last administered on 07/26/19at 20:56; Start 07/13/19 at 09:00; Stop 07/27/19 at 09:58; Status DC Daptomycin 500 mg/ Sodium Chloride 50 ml @ 100 mls/hr Q48H IV Last administered on 07/29/19at 09:57; Start 07/13/19 at 08:30; Stop 07/29/19 at 10:07; Status DC Lidocaine HCl (Buffered Lidocaine 1%) 3 ml 1X ONCE INJ Last administered on 07/13/19at 10:27; Start 07/13/19 at 10:30; Stop 07/13/19 at 10:31; Status DC Potassium Phosphate 20 mmol/ Sodium Chloride 106.6667 ml @ 51.667 m... 1X ONCE IV Last administered on 07/13/19at 12:51; Start 07/13/19 at 13:00; Stop 07/13/19 at 15:03; Status DC Sodium Chloride 90 meq/Potassium Chloride 15 meq/ Potassium Phosphate 18 mmol/ Magnesium Sulfate 8 meq/Calcium Gluconate 15 meq/ Multivitamins 10 ml/Chromium/ Copper/Manganese/ Seleni/Zn 0.5 ml/ Total Parenteral Nutrition/Amino Acids/Dext amarilis/ Fat Emulsion Intravenous 1,400 ml @ 58.333 mls/ hr TPN CONT IV Last administered on 07/13/19at 22:16; Start 07/13/19 at 22:00; Stop 07/14/19 at 21:59; Status DC Potassium Chloride 20 meq/ Bicarbonate Dialysis Soln w/ out KCl 5,010 ml @ 1,000 mls/hr Q5H1M IV Last administered on 07/17/19at 14:54; Start 07/13/19 at 16:00; Stop 07/17/19 at 19:59; Status DC Multi-Ingred Cream/Lotion/Oil/ Oint (Artificial Tears Eye Ointment) 1 ramu PRN Q1HR PRN OU DRY EYE, 2nd choice Last administered on 08/01/19at 08:19; Start 07/13/19 at 17:30 Sodium Chloride 90 meq/Potassium Chloride 15 meq/ Potassium Phosphate 18 mmol/ Magnesium Sulfate 8 meq/Calcium Gluconate 15 meq/ Multivitamins 10 ml/Chromium/ Copper/Manganese/ Seleni/Zn 0.5 ml/ Total Parenteral Nutrition/Amino Acids/Dextrose/ Fat Emulsion Intravenous 1,400 ml @ 58.333 mls/ hr TPN CONT IV Last administered on 07/14/19at 22:00; Start 07/14/19 at 22:00; Stop 07/15/19 at 21:59; Status DC Albumin Human 500 ml @ 125 mls/hr 1X ONCE IV ; Start 07/14/19 at 14:15; Stop 07/14/19 at 18:14; Status DC Sodium Chloride 90 meq/Potassium Chloride 15 meq/ Potassium Phosphate 18 mmol/ Magnesium Sulfate 8 meq/Calcium Gluconate 15 meq/ Multivitamins 10 ml/Chromium/ Copper/Manganese/ Seleni/Zn 0.5 ml/ Insulin Human Regular 10 unit/ Total Parenteral Nutrition/Amino Acids/Dextrose/ Fat Emulsion Intravenous 1,400 ml @ 58.333 mls/ hr TPN CONT IV Last administered on 07/15/19at 21:43; Start 07/15/19 at 22:00; Stop 07/16/19 at 21:59; Status DC Lidocaine HCl (Buffered Lidocaine 1%) 3 ml STK-MED ONCE .ROUTE ; Start 07/13/19 at 10:00; Stop 07/15/19 at 13:57; Status DC Midazolam HCl 100 mg/Sodium Chloride 100 ml @ 7 mls/hr CONT PRN IV SEE PROTOCOL Last administered on 07/27/19at 15:35; Start 07/16/19 at 16:00 Sodium Chloride 90 meq/Potassium Chloride 15 meq/ Potassium Phosphate 18 mmol/ Magnesium Sulfate 8 meq/Calcium Gluconate 15 meq/ Multivitamins 10 ml/Chromium/ Copper/Manganese/ Seleni/Zn 0.5 ml/ Insulin Human Regular 15 unit/ Total Parenteral Nutrition/Amino Acids/Dextrose/ Fat Emulsion Intravenous 1,400 ml @ 58.333 mls/ hr TPN CONT IV Last administered on 07/16/19at 20:34; Start 07/16/19 at 22:00; Stop 07/17/19 at 21:59; Status DC Info (Icu Electrolyte Protocol) 1 ea CONT PRN PRN MC PER PROTOCOL; Start 07/17/19 at 13:15 Sodium Chloride 90 meq/Potassium Chloride 15 meq/ Potassium Phosphate 18 mmol/ Magnesium Sulfate 8 meq/Calcium Gluconate 15 meq/ Multivitamins 10 ml/Chromium/ Copper/Manganese/ Seleni/Zn 0.5 ml/ Insulin Human Regular 15 unit/ Total Parenteral Nutrition/Amino Acids/Dextrose/ Fat Emulsion Intravenous 1,400 ml @ 58.333 mls/ hr TPN CONT IV Last administered on 07/17/19at 22:05; Start 07/17/19 at 22:00; Stop 07/18/19 at 21:59; Status DC Potassium Chloride 15 meq/ Bicarbonate Dialysis Soln w/ out KCl 5,007.5 ml @ 1,000 mls/ hr Q5H1M IV Last administered on 07/20/19at 18:14; Start 07/17/19 at 20:00; Stop 07/21/19 at 13:08; Status DC Potassium Chloride 15 meq/ Bicarbonate Dialysis Soln w/ out KCl 5,007.5 ml @ 1,000 mls/ hr Q5H1M IV Last administered on 07/20/19at 18:14; Start 07/17/19 at 20:00; Stop 07/21/19 at 13:08; Status DC Potassium Chloride 15 meq/ Bicarbonate Dialysis Soln w/ out KCl 5,007.5 ml @ 1,000 mls/ hr Q5H1M IV Last administered on 07/20/19at 18:14; Start 07/17/19 at 20:00; Stop 07/21/19 at 13:08; Status DC Iohexol (Omnipaque 240 Mg/ml) 30 ml 1X ONCE PO Last administered on 07/18/19at 11:30; Start 07/18/19 at 11:30; Stop 07/18/19 at 11:33; Status DC Info (CONTRAST GIVEN -- Rx MONITORING) 1 each PRN DAILY PRN MC SEE COMMENTS; Start 07/18/19 at 11:45; Stop 07/20/19 at 11:44; Status DC Sodium Chloride 90 meq/Potassium Chloride 15 meq/ Potassium Phosphate 18 mmol/ Magnesium Sulfate 8 meq/Calcium Gluconate 15 meq/ Multivitamins 10 ml/Chromium/ Copper/Manganese/ Seleni/Zn 0.5 ml/ Insulin Human Regular 15 unit/ Total Parenteral Nutrition/Amino Acids/Dextrose/ Fat Emulsion Intravenous 1,400 ml @ 58.333 mls/ hr TPN CONT IV Last administered on 07/18/19at 21:47; Start 07/18/19 at 22:00; Stop 07/19/19 at 21:59; Status DC Sodium Chloride 90 meq/Potassium Chloride 15 meq/ Potassium Phosphate 18 mmol/ Magnesium Sulfate 8 meq/Calcium Gluconate 15 meq/ Multivitamins 10 ml/Chromium/ Copper/Manganese/ Seleni/Zn 0.5 ml/ Insulin Human Regular 20 unit/ Total Parenteral Nutrition/Amino Acids/Dextrose/ Fat Emulsion Intravenous 1,400 ml @ 58.333 mls/ hr TPN CONT IV Last administered on 07/19/19at 21:36; Start 07/19/19 at 22:00; Stop 07/20/19 at 21:59; Status DC Alteplase, Recombinant (Cathflo For Central Catheter Clearance) 1 mg 1X ONCE INT CAT Last administered on 07/19/19at 20:03; Start 07/19/19 at 19:30; Stop 07/19/19 at 19:46; Status DC Alteplase, Recombinant (Cathflo For Central Catheter Clearance) 1 mg 1X ONCE INT CAT Last administered on 07/19/19at 22:05; Start 07/19/19 at 22:00; Stop 07/19/19 at 22:01; Status DC Sodium Chloride 90 meq/Potassium Chloride 15 meq/ Potassium Phosphate 18 mmol/ Magnesium Sulfate 8 meq/Calcium Gluconate 15 meq/ Multivitamins 10 ml/Chromium/ Copper/Manganese/ Seleni/Zn 0.5 ml/ Insulin Human Regular 20 unit/ Total Parenteral Nutrition/Amino Acids/Dextrose/ Fat Emulsion Intravenous 1,400 ml @ 58.333 mls/ hr TPN CONT IV Last administered on 07/20/19at 21:30; Start 07/20/19 at 22:00; Stop 07/21/19 at 21:59; Status DC Dexmedetomidine HCl 400 mcg/ Sodium Chloride 100 ml @ 0 mls/hr CONT PRN IV ANXIETY / AGITATION Last administered on 08/15/19at 08:19; Start 07/21/19 at 08:15 Sodium Chloride 500 ml @ 500 mls/hr 1X PRN PRN IV ELEVATED BP, SEE COMMENTS; Start 07/21/19 at 08:15 Atropine Sulfate (ATROPINE 0.5mg SYRINGE) 0.5 mg PRN Q5MIN PRN IV SEE COMMENTS; Start 07/21/19 at 08:15 Furosemide (Lasix) 20 mg 1X ONCE IVP Last administered on 07/21/19at 08:19; Start 07/21/19 at 08:15; Stop 07/21/19 at 08:16; Status DC Lidocaine HCl (Buffered Lidocaine 1%) 3 ml STK-MED ONCE .ROUTE ; Start 07/21/19 at 08:39; Stop 07/21/19 at 08:39; Status DC Lidocaine HCl (Buffered Lidocaine 1%) 6 ml 1X ONCE INJ Last administered on 07/21/19at 09:05; Start 07/21/19 at 09:00; Stop 07/21/19 at 09:06; Status DC Sodium Chloride 90 meq/Potassium Chloride 15 meq/ Potassium Phosphate 18 mmol/ Magnesium Sulfate 8 meq/Calcium Gluconate 15 meq/ Multivitamins 10 ml/Chromium/ Copper/Manganese/ Seleni/Zn 0.5 ml/ Insulin Human Regular 20 unit/ Total Parenteral Nutrition/Amino Acids/Dextrose/ Fat Emulsion Intravenous 1,400 ml @ 58.333 mls/ hr TPN CONT IV Last administered on 07/21/19at 22:45; Start 07/21/19 at 22:00; Stop 07/22/19 at 21:59; Status DC Sodium Chloride 1,000 ml @ 1,000 mls/hr Q1H PRN IV hypotension; Start 07/22/19 at 07:30; Stop 07/22/19 at 13:29; Status DC Albumin Human 200 ml @ 200 mls/hr 1X PRN PRN IV Hypotension Last administered on 07/22/19at 09:36; Start 07/22/19 at 07:30; Stop 07/22/19 at 13:29; Status DC Sodium Chloride (Normal Saline Flush) 10 ml 1X PRN PRN IV AP catheter pack; Start 07/22/19 at 07:30; Stop 07/22/19 at 21:29; Status DC Sodium Chloride (Normal Saline Flush) 10 ml 1X PRN PRN IV ASH [employer] catheter pack; Start 07/22/19 at 07:30; Stop 07/23/19 at 07:29; Status DC Sodium Chloride 1,000 ml @ 400 mls/hr Q2H30M PRN IV PATENCY; Start 07/22/19 at 07:30; Stop 07/22/19 at 19:29; Status DC Info (PHARMACY MONITORING -- do not chart) 1 each PRN DAILY PRN MC SEE COMMENTS; Start 07/22/19 at 07:30; Stop 07/22/19 at 13:02; Status DC Info (PHARMACY MONITORING -- do not chart) 1 each PRN DAILY PRN MC SEE COMMENTS; Start 07/22/19 at 07:30; Stop 07/24/19 at 12:45; Status DC Sodium Chloride 90 meq/Potassium Chloride 15 meq/ Potassium Phosphate 10 mmol/ Magnesium Sulfate 8 meq/Calcium Gluconate 15 meq/ Multivitamins 10 ml/Chromium/ Copper/Manganese/ Seleni/Zn 0.5 ml/ Insulin Human Regular 25 unit/ Total Parenteral Nutrition/Amino Acids/Dextrose/ Fat Emulsion Intravenous 1,400 ml @ 58.333 mls/ hr TPN CONT IV Last administered on 07/22/19at 22:19; Start 07/22/19 at 22:00; Stop 07/23/19 at 21:59; Status DC Heparin Sodium (Porcine) (Heparin Sodium) 5,000 unit Q12HR SQ Last administered on 08/14/19at 08:59; Start 07/22/19 at 21:00; Stop 08/14/19 at 10:05; Status DC Ondansetron HCl (Zofran) 4 mg PRN Q6HRS PRN IV NAUSEA/VOMITING; Start 07/25/19 at 07:00; Stop 07/26/19 at 06:59; Status DC Fentanyl Citrate (Fentanyl 2ml Vial) 25 mcg PRN Q5MIN PRN IV MILD PAIN 1-3; Start 07/25/19 at 07:00; Stop 07/26/19 at 06:59; Status DC Fentanyl Citrate (Fentanyl 2ml Vial) 50 mcg PRN Q5MIN PRN IV MODERATE TO SEVERE PAIN; Start 07/25/19 at 07:00; Stop 07/26/19 at 06:59; Status DC Ringer's Solution 1,000 ml @ 30 mls/hr Q24H IV ; Start 07/25/19 at 07:00; Stop 07/25/19 at 18:59; Status DC Lidocaine HCl (Xylocaine-Mpf 1% 2ml Vial) 2 ml PRN 1X PRN ID PRIOR TO IV START; Start 07/25/19 at 07:00; Stop 07/26/19 at 06:59; Status DC Prochlorperazine Edisylate (Compazine) 5 mg PACU PRN PRN IV NAUSEA, MRX1; Start 07/25/19 at 07:00; Stop 07/26/19 at 06:59; Status DC Sodium Chloride 1,000 ml @ 1,000 mls/hr Q1H PRN IV hypotension; Start 07/23/19 at 09:10; Stop 07/23/19 at 15:09; Status DC Albumin Human 200 ml @ 200 mls/hr 1X PRN PRN IV Hypotension Last administered on 07/23/19at 10:10; Start 07/23/19 at 09:15; Stop 07/23/19 at 15:14; Status DC Sodium Chloride 1,000 ml @ 400 mls/hr Q2H30M PRN IV PATENCY; Start 07/23/19 at 09:10; Stop 07/23/19 at 21:09; Status DC Info (PHARMACY MONITORING -- do not chart) 1 each PRN DAILY PRN MC SEE COMMENTS; Start 07/23/19 at 09:15; Stop 07/24/19 at 12:45; Status DC Info (PHARMACY MONITORING -- do not chart) 1 each PRN DAILY PRN MC SEE COMMENTS; Start 07/23/19 at 09:15; Stop 07/24/19 at 12:45; Status DC Sodium Chloride 90 meq/Potassium Chloride 15 meq/ Potassium Phosphate 10 mmol/ Magnesium Sulfate 8 meq/Calcium Gluconate 15 meq/ Multivitamins 10 ml/Chromium/ Copper/Manganese/ Seleni/Zn 0.5 ml/ Insulin Human Regular 25 unit/ Total Parenteral Nutrition/Amino Acids/Dextrose/ Fat Emulsion Intravenous 1,400 ml @ 58.333 mls/ hr TPN CONT IV Last administered on 07/23/19at 22:10; Start 07/23/19 at 22:00; Stop 07/24/19 at 21:59; Status DC Magnesium Sulfate 50 ml @ 25 mls/hr PRN DAILY PRN IV for Mag < 1.7 on am labs Last administered on 08/08/19at 17:27; Start 07/24/19 at 09:15 Sodium Chloride 90 meq/Potassium Chloride 15 meq/ Potassium Phosphate 10 mmol/ Magnesium Sulfate 8 meq/Calcium Gluconate 15 meq/ Multivitamins 10 ml/Chromium/ Copper/Manganese/ Seleni/Zn 0.5 ml/ Insulin Human Regular 25 unit/ Total Parenteral Nutrition/Amino Acids/Dextrose/ Fat Emulsion Intravenous 1,400 ml @ 58.333 mls/ hr TPN CONT IV Last administered on 07/24/19at 21:20; Start 07/24/19 at 22:00; Stop 07/25/19 at 21:59; Status DC Sodium Chloride 1,000 ml @ 1,000 mls/hr Q1H PRN IV hypotension; Start 07/24/19 at 12:23; Stop 07/24/19 at 18:22; Status DC Albumin Human 200 ml @ 200 mls/hr 1X ONCE IV Last administered on 07/24/19at 13:34; Start 07/24/19 at 12:30; Stop 07/24/19 at 13:29; Status DC Diphenhydramine HCl (Benadryl) 25 mg 1X PRN PRN IV ITCHING; Start 07/24/19 at 12:30; Stop 07/25/19 at 12:29; Status DC Diphenhydramine HCl (Benadryl) 25 mg 1X PRN PRN IV ITCHING; Start 07/24/19 at 12:30; Stop 07/25/19 at 12:29; Status DC Info (PHARMACY MONITORING -- do not chart) 1 each PRN DAILY PRN MC SEE COMMENTS; Start 07/24/19 at 12:30; Status Cancel Bupivacaine HCl/ Epinephrine Bitart (Sensorcain-Epi 0.5%-1:[id number] Mpf) 30 ml STK-MED ONCE .ROUTE Last administered on 07/25/19at 11:44; Start 07/25/19 at 11:00; Stop 07/25/19 at 11:01; Status DC Cellulose (Surgicel Fibrillar 1x2) 1 each STK-MED ONCE .ROUTE ; Start 07/25/19 at 11:00; Stop 07/25/19 at 11:01; Status DC Sodium Chloride 90 meq/Potassium Chloride 15 meq/ Potassium Phosphate 10 mmol/ Magnesium Sulfate 12 meq/Calcium Gluconate 15 meq/ Multivitamins 10 ml/Chromium/ Copper/Manganese/ Seleni/Zn 0.5 ml/ Insulin Human Regular 25 unit/ Total Parenteral Nutrition/Amino Acids/Dextrose/ Fat Emulsion Intravenous 1,400 ml @ 58.333 mls/ hr TPN CONT IV Last administered on 07/25/19at 22:24; Start 07/25/19 at 22:00; Stop 07/26/19 at 21:59; Status DC Propofol 20 ml @ As Directed STK-MED ONCE IV ; Start 07/25/19 at 11:07; Stop 07/25/19 at 11:07; Status DC Cellulose (Surgicel Hemostat 4x8) 1 each STK-MED ONCE .ROUTE Last administered on 07/25/19at 11:44; Start 07/25/19 at 11:55; Stop 07/25/19 at 11:56; Status DC Sevoflurane (Ultane) 60 ml STK-MED ONCE IH ; Start 07/25/19 at 12:46; Stop 07/25/19 at 12:46; Status DC Sodium Chloride 1,000 ml @ 1,000 mls/hr Q1H PRN IV hypotension; Start 07/25/19 at 13:51; Stop 07/25/19 at 19:50; Status DC Albumin Human 200 ml @ 200 mls/hr 1X PRN PRN IV Hypotension Last administered on 07/25/19at 14:51; Start 07/25/19 at 14:00; Stop 07/25/19 at 19:59; Status DC Diphenhydramine HCl (Benadryl) 25 mg 1X PRN PRN IV ITCHING; Start 07/25/19 at 14:00; Stop 07/26/19 at 13:59; Status DC Diphenhydramine HCl (Benadryl) 25 mg 1X PRN PRN IV ITCHING; Start 07/25/19 at 14:00; Stop 07/26/19 at 13:59; Status DC Sodium Chloride 1,000 ml @ 400 mls/hr Q2H30M PRN IV PATENCY; Start 07/25/19 at 13:51; Stop 07/26/19 at 01:50; Status DC Info (PHARMACY MONITORING -- do not chart) 1 each PRN DAILY PRN MC SEE COMMENTS; Start 07/25/19 at 14:00; Stop 07/28/19 at 08:16; Status DC Heparin Sodium (Porcine) (Hep Lock Adult) 500 unit STK-MED ONCE IVP ; Start 07/26/19 at 09:29; Stop 07/26/19 at 09:30; Status DC Sodium Chloride 1,000 ml @ 1,000 mls/hr Q1H PRN IV hypotension; Start 07/26/19 at 10:43; Stop 07/26/19 at 16:42; Status DC Sodium Chloride 1,000 ml @ 400 mls/hr Q2H30M PRN IV PATENCY; Start 07/26/19 at 10:43; Stop 07/26/19 at 22:42; Status DC Info (PHARMACY MONITORING -- do not chart) 1 each PRN DAILY PRN MC SEE COMMENTS; Start 07/26/19 at 10:45; Status UNV Info (PHARMACY MONITORING -- do not chart) 1 each PRN DAILY PRN MC SEE COMMENTS; Start 07/26/19 at 10:45; Status UNV Sodium Chloride 90 meq/Potassium Chloride 15 meq/ Magnesium Sulfate 12 meq/Calcium Gluconate 15 meq/ Multivitamins 10 ml/Chromium/ Copper/Manganese/ Seleni/Zn 0.5 ml/ Insulin Human Regular 25 unit/ Total Parenteral Nutrition/Amino Acids/Dextrose/ Fat Emulsion Intravenous 1,400 ml @ 58.333 mls/ hr TPN CONT IV Last administered on 07/26/19at 22:13; Start 07/26/19 at 22:00; Stop 07/27/19 at 21:59; Status DC Sodium Chloride 1,000 ml @ 1,000 mls/hr Q1H PRN IV hypotension; Start 07/27/19 at 07:50; Stop 07/27/19 at 13:49; Status DC Albumin Human 200 ml @ 200 mls/hr 1X ONCE IV ; Start 07/27/19 at 08:00; Stop 07/27/19 at 08:53; Status DC Diphenhydramine HCl (Benadryl) 25 mg 1X PRN PRN IV ITCHING; Start 07/27/19 at 08:00; Stop 07/28/19 at 07:59; Status DC Diphenhydramine HCl (Benadryl) 25 mg 1X PRN PRN IV ITCHING; Start 07/27/19 at 08:00; Stop 07/28/19 at 07:59; Status DC Info (PHARMACY MONITORING -- do not chart) 1 each PRN DAILY PRN MC SEE COMMENTS; Start 07/27/19 at 08:00; Stop 07/28/19 at 08:16; Status DC Albumin Human 50 ml @ 50 mls/hr 1X ONCE IV ; Start 07/27/19 at 08:53; Stop 07/27/19 at 08:56; Status DC Albumin Human 200 ml @ 50 mls/hr PRN 1X PRN IV HYPOTENSION Last administered on 08/02/19at 11:54; Start 07/27/19 at 09:00 Meropenem 500 mg/ Sodium Chloride 50 ml @ 100 mls/hr Q12H IV Last administered on 08/14/19at 22:11; Start 07/27/19 at 10:00 Sodium Chloride 90 meq/Magnesium Sulfate 12 meq/ Calcium Gluconate 15 meq/ Multivitamins 10 ml/Chromium/ Copper/Manganese/ Seleni/Zn 0.5 ml/ Insulin Human Regular 25 unit/ Total Parenteral Nutrition/Amino Acids/Dextrose/ Fat Emulsion Intravenous 1,400 ml @ 58.333 mls/ hr TPN CONT IV Last administered on 07/27/19at 21:41; Start 07/27/19 at 22:00; Stop 07/28/19 at 21:59; Status DC Sodium Chloride 1,000 ml @ 1,000 mls/hr Q1H PRN IV hypotension; Start 07/28/19 at 07:58; Stop 07/28/19 at 13:57; Status DC Albumin Human 200 ml @ 200 mls/hr 1X PRN PRN IV Hypotension Last administered on 07/28/19at 09:30; Start 07/28/19 at 08:00; Stop 07/28/19 at 13:59; Status DC Sodium Chloride 1,000 ml @ 400 mls/hr Q2H30M PRN IV PATENCY; Start 07/28/19 at 07:58; Stop 07/28/19 at 19:57; Status DC Info (PHARMACY MONITORING -- do not chart) 1 each PRN DAILY PRN MC SEE CO MMENTS; Start 07/28/19 at 08:00; Status Cancel Info (PHARMACY MONITORING -- do not chart) 1 each PRN DAILY PRN MC SEE COMMENTS; Start 07/28/19 at 08:15; Status UNV Sodium Chloride 90 meq/Potassium Phosphate 5 mmol/ Magnesium Sulfate 12 meq/Calcium Gluconate 15 meq/ Multivitamins 10 ml/Chromium/ Copper/Manganese/ Seleni/Zn 0.5 ml/ Insulin Human Regular 30 unit/ Total Parenteral Nut rition/Amino Acids/Dextrose/ Fat Emulsion Intravenous 1,400 ml @ 58.333 mls/ hr TPN CONT IV Last administered on 07/28/19at 22:08; Start 07/28/19 at 22:00; Stop 07/29/19 at 21:59; Status DC Linezolid/Dextrose 300 ml @ 300 mls/hr Q12HR IV Last administered on 08/08/19at 20:40; Start 07/29/19 at 11:00; Stop 08/09/19 at 08:10; Status DC Sodium Chloride 90 meq/Potassium Phosphate 15 mmol/ Magnesium Sulfate 12 meq/Calcium Gluconate 15 meq/ Multivitamins 10 ml/Chromium/ Copper/Manganese/ Seleni/Zn 0.5 ml/ Insulin Human Regular 30 unit/ Total Parenteral Nutrition/Amino Acids/Dextrose/ Fat Emulsion Intravenous 1,400 ml @ 58.333 mls/ hr TPN CONT IV Last administered on 07/29/19at 21:49; Start 07/29/19 at 22:00; Stop 07/30/19 at 21:59; Status DC Sodium Chloride 90 meq/Potassium Phosphate 15 mmol/ Magnesium Sulfate 12 meq/Calcium Gluconate 15 meq/ Multivitamins 10 ml/Chromium/ Copper/Manganese/ Seleni/Zn 0.5 ml/ Insulin Human Regular 40 unit/ Total Parenteral Nutrition/Amino Acids/Dextrose/ Fat Emulsion Intravenous 1,400 ml @ 58.333 mls/ hr TPN CONT IV Last administered on 07/30/19at 21:21; Start 07/30/19 at 22:00; Stop 07/31/19 at 21:59; Status DC Sodium Chloride 1,000 ml @ 1,000 mls/hr Q1H PRN IV hypotension; Start 07/30/19 at 13:26; Stop 07/30/19 at 19:25; Status DC Albumin Human 200 ml @ 200 mls/hr 1X PRN PRN IV Hypotension Last administered on 07/30/19at 15:00; Start 07/30/19 at 13:30; Stop 07/30/19 at 19:29; Status DC Sodium Chloride (Normal Saline Flush) 10 ml 1X PRN PRN IV AP catheter pack; Start 07/30/19 at 13:30; Stop 07/31/19 at 13:29; Status DC Sodium Chloride (Normal Saline Flush) 10 ml 1X PRN PRN IV [employer] catheter pack; Start 07/30/19 at 13:30; Stop 07/31/19 at 13:29; Status DC Sodium Chloride 1,000 ml @ 400 mls/hr Q2H30M PRN IV PATENCY; Start 07/30/19 at 13:26; Stop 07/31/19 at 01:25; Status DC Info (PHARMACY MONITORING -- do not chart) 1 each PRN DAILY PRN MC SEE CO MMENTS; Start 07/30/19 at 13:30; Stop 07/30/19 at 13:33; Status DC Info (PHARMACY MONITORING -- do not chart) 1 each PRN DAILY PRN MC SEE COMMENTS; Start 07/30/19 at 13:30; Stop 07/30/19 at 13:34; Status DC Sodium Chloride 90 meq/Potassium Phosphate 19 mmol/ Magnesium Sulfate 12 meq/Calcium Gluconate 15 meq/ Multivitamins 10 ml/Chromium/ Copper/Manganese/ Seleni/Zn 0.5 ml/ Insulin Human Regular 40 unit/ Total Parenteral Nutrition/Amino Acids/Dextrose/ Fat Emulsion Intravenous 1,400 ml @ 58.333 mls/ hr TPN CONT IV Last administered on 07/31/19at 21:54; Start 07/31/19 at 22:00; Stop 08/01/19 at 21:59; Status DC Sodium Chloride 1,000 ml @ 1,000 mls/hr Q1H PRN IV hypotension; Start 08/01/19 at 09:35; Stop 08/01/19 at 15:34; Status DC Albumin Human 200 ml @ 200 mls/hr 1X PRN PRN IV Hypotension; Start 08/01/19 at 09:45; Stop 08/01/19 at 15:44; Status DC Diphenhydramine HCl (Benadryl) 25 mg 1X PRN PRN IV ITCHING; Start 08/01/19 at 09:45; Stop 08/02/19 at 09:44; Status DC Diphenhydramine HCl (Benadryl) 25 mg 1X PRN PRN IV ITCHING; Start 08/01/19 at 09:45; Stop 08/02/19 at 09:44; Status DC Sodium Chloride 1,000 ml @ 400 mls/hr Q2H30M PRN IV PATENCY; Start 08/01/19 at 09:35; Stop 08/01/19 at 21:34; Status DC Info (PHARMACY MONITORING -- do not chart) 1 each PRN DAILY PRN MC SEE COMMENTS; Start 08/01/19 at 09:45; Status Cancel Sodium Chloride 100 meq/Potassium Phosphate 19 mmol/ Magnesium Sulfate 12 meq/Calcium Gluconate 15 meq/ Multivitamins 10 ml/Chromium/ Copper/Manganese/ Seleni/Zn 0.5 ml/ Insulin Human Regular 40 unit/ Potassium Chloride 20 meq/ Total Parenteral Nutrition/Amino Acids/Dextrose/ Fat Emulsion Intravenous 1,400 ml @ 58.333 mls/ hr TPN CONT IV Last administered on 08/01/19at 22:02; Start 08/01/19 at 22:00; Stop 08/02/19 at 21:59; Status DC Furosemide (Lasix) 40 mg 1X ONCE IVP Last administered on 08/01/19at 14:39; Start 08/01/19 at 14:30; Stop 08/01/19 at 14:31; Status DC Metronidazole 100 ml @ 100 mls/hr Q8HRS IV Last administered on 08/09/19at 06:04; Start 08/02/19 at 10:00; Stop 08/09/19 at 08:10; Status DC Sodium Chloride 1,000 ml @ 1,000 mls/hr Q1H PRN IV hypotension; Start 08/02/19 at 08:00; Stop 08/02/19 at 13:59; Status DC Albumin Human 200 ml @ 200 mls/hr 1X PRN PRN IV Hypotension; Start 08/02/19 at 08:00; Stop 08/02/19 at 13:59; Status DC Sodium Chloride 1,000 ml @ 400 mls/hr Q2H30M PRN IV PATENCY; Start 08/02/19 at 08:00; Stop 08/02/19 at 19:59; Status DC Info (PHARMACY MONITORING -- do not chart) 1 each PRN DAILY PRN MC SEE COMMENTS; Start 08/02/19 at 11:30; Status UNV Info (PHARMACY MONITORING -- do not chart) 1 each PRN DAILY PRN MC SEE COMMENTS; Start 08/02/19 at 11:30; Stop 08/04/19 at 12:13; Status DC Sodium Chloride 100 meq/Potassium Phosphate 19 mmol/ Magnesium Sulfate 12 meq/Calcium Gluconate 15 meq/ Multivitamins 10 ml/Chromium/ Copper/Manganese/ Seleni/Zn 0.5 ml/ Insulin Human Regular 40 unit/ Potassium Chloride 20 meq/ Total Parenteral Nutrition/Amino Acids/Dextrose/ Fat Emulsion Intravenous 1,400 ml @ 58.333 mls/ hr TPN CONT IV Last administered on 08/02/19at 21:52; Start 08/02/19 at 22:00; Stop 08/03/19 at 21:59; Status DC Sodium Chloride (Normal Saline Flush) 10 ml QSHIFT PRN IV AFTER MEDS AND BLOOD DRAWS; Start 08/02/19 at 15:00 Sodium Chloride (Normal Saline Flush) 10 ml PRN Q5MIN PRN IV AFTER MEDS AND BLOOD DRAWS; Start 08/02/19 at 15:00 Sodium Chloride (Normal Saline Flush) 20 ml PRN Q5MIN PRN IV AFTER MEDS AND BLOOD DRAWS; Start 08/02/19 at 15:00 Sodium Chloride 100 meq/Potassium Phosphate 19 mmol/ Magnesium Sulfate 12 meq/Calcium Gluconate 15 meq/ Multivitamins 10 ml/Chromium/ Copper/Manganese/ Seleni/Zn 0.5 ml/ Insulin Human Regular 40 unit/ Potassium Chloride 20 meq/ Total Parenteral Nutrition/Amino Acids/Dextrose/ Fat Emulsion Intravenous 1,400 ml @ 58.333 mls/ hr TPN CONT IV Last administered on 08/03/19at 21:20; Start 08/03/19 at 22:00; Stop 08/04/19 at 21:59; Status DC Lidocaine HCl (Buffered Lidocaine 1%) 3 ml STK-MED ONCE .ROUTE ; Start 08/03/19 at 13:16; Stop 08/03/19 at 13:16; Status DC Lidocaine HCl (Buffered Lidocaine 1%) 6 ml 1X ONCE INJ Last administered on 08/03/19at 13:45; Start 08/03/19 at 13:30; Stop 08/03/19 at 13:31; Status DC Albumin Human 100 ml @ 100 mls/hr 1X ONCE IV Last administered on 08/03/19at 15:41; Start 08/03/19 at 15:00; Stop 08/03/19 at 15:59; Status DC Albumin Human 50 ml @ 50 mls/hr 1X ONCE IV Last administered on 08/03/19at 15:00; Start 08/03/19 at 15:00; Stop 08/03/19 at 15:59; Status DC Info (PHARMACY MONITORING -- do not chart) 1 each PRN DAILY PRN MC SEE COMMENTS; Start 08/04/19 at 11:30; Status Cancel Info (PHARMACY MONITORING -- do not chart) 1 each PRN DAILY PRN MC SEE COMMENTS; Start 08/04/19 at 11:30; Status UNV Sodium Chloride 100 meq/Potassium Phosphate 10 mmol/ Magnesium Sulfate 12 meq/Calcium Gluconate 15 meq/ Multivitamins 10 ml/Chromium/ Copper/Manganese/ Seleni/Zn 0.5 ml/ Insulin Human Regular 35 unit/ Potassium Chloride 20 meq/ Total Parenteral Nutrition/Amino Acids/Dextrose/ Fat Emulsion Intravenous 1,400 ml @ 58.333 mls/ hr TPN CONT IV Last administered on 08/04/19at 22:10; Start 08/04/19 at 22:00; Stop 08/05/19 at 21:59; Status DC Sodium Chloride 100 meq/Potassium Phosphate 5 mmol/ Magnesium Sulfate 12 meq/Calcium Gluconate 15 meq/ Multivitamins 10 ml/Chromium/ Copper/Manganese/ Seleni/Zn 0.5 ml/ Insulin Human Regular 35 unit/ Potassium Chloride 20 meq/ Total Parenteral Nutrition/Amino Acids/Dextrose/ Fat Emulsion Intravenous 1,400 ml @ 58.333 mls/ hr TPN CONT IV Last administered on 08/05/19at 22:59; Start 08/05/19 at 22:00; Stop 08/06/19 at 21:59; Status DC Sodium Chloride 1,000 ml @ 1,000 mls/hr Q1H PRN IV hypotension; Start 08/06/19 at 08:27; Stop 08/06/19 at 14:26; Status DC Albumin Human 200 ml @ 200 mls/hr 1X PRN PRN IV Hypotension Last administered on 08/06/19at 09:18; Start 08/06/19 at 08:30; Stop 08/06/19 at 14:29; Status DC Sodium Chloride 1,000 ml @ 400 mls/hr Q2H30M PRN IV PATENCY; Start 08/06/19 at 08:27; Stop 08/06/19 at 20:26; Status DC Info (PHARMACY MONITORING -- do not chart) 1 each PRN DAILY PRN MC SEE COMMENTS; Start 08/06/19 at 08:30; Status Cancel Info (PHARMACY MONITORING -- do not chart) 1 each PRN DAILY PRN MC SEE COMMENTS; Start 08/06/19 at 08:30; Stop 08/14/19 at 13:10; Status DC Sodium Chloride 100 meq/Potassium Chloride 40 meq/ Magnesium Sulfate 15 meq/Calcium Gluconate 15 meq/ Multivitamins 10 ml/Chromium/ Copper/Manganese/ Seleni/Zn 0.5 ml/ Insulin Human Regular 35 unit/ Total Parenteral Nutrition/Amino Acids/Dextrose/ Fat Emulsion Intravenous 1,400 ml @ 58.333 mls/ hr TPN CONT IV Last administered on 08/06/19at 22:00; Start 08/06/19 at 22:00; Stop 08/07/19 at 21:59; Status DC Potassium Chloride/Water 100 ml @ 100 mls/hr 1X ONCE IV Last administered on 08/06/19at 17:28; Start 08/06/19 at 14:45; Stop 08/06/19 at 15:44; Status DC Sodium Chloride 100 meq/Potassium Chloride 40 meq/ Magnesium Sulfate 15 meq/Calcium Gluconate 15 meq/ Multivitamins 10 ml/Chromium/ Copper/Manganese/ Seleni/Zn 0.5 ml/ Insulin Human Regular 35 unit/ Total Parenteral Nutrition/Amino Acids/Dextrose/ Fat Emulsion Intravenous 1,400 ml @ 58.333 mls/ hr TPN CONT IV Last administered on 08/07/19at 22:46; Start 08/07/19 at 22:00; Stop 08/08/19 at 21:59; Status DC Sodium Chloride 100 meq/Potassium Chloride 40 meq/ Magnesium Sulfate 20 meq/Calcium Gluconate 15 meq/ Multivitamins 10 ml/Chromium/ Copper/Manganese/ S thien/Zn 0.5 ml/ Insulin Human Regular 35 unit/ Total Parenteral Nutrition/Amino Acids/Dextrose/ Fat Emulsion Intravenous 1,400 ml @ 58.333 mls/ hr TPN CONT IV Last administered on 08/08/19at 22:31; Start 08/08/19 at 22:00; Stop 08/09/19 at 21:59; Status DC Fentanyl Citrate (Fentanyl 2ml Vial) 50 mcg PRN Q2HR PRN IVP PAIN Last administered on 08/15/19at 01:56; Start 08/08/19 at 21:00 Fentanyl Citrate (Fentanyl 2ml Vial) 25 mcg PRN Q2HR PRN IVP PAIN; Start 08/08/19 at 21:00 Enoxaparin Sodium (Lovenox 100mg Syringe) 100 mg Q12HR SQ ; Start 08/09/19 at 21:00; Status UNV Amino Acids/ Glycerin/ Electrolytes 1,000 ml @ 75 mls/hr [id number] IV ; Start 08/08/19 at 21:15; Status UNV Sodium Chloride 1,000 ml @ 1,000 mls/hr Q1H PRN IV hypotension; Start 08/09/19 at 07:56; Stop 08/09/19 at 13:55; Status DC Albumin Human 200 ml @ 200 mls/hr 1X PRN PRN IV Hypotension Last administered on 08/09/19at 08:40; Start 08/09/19 at 08:00; Stop 08/09/19 at 13:59; Status DC Sodium Chloride 1,000 ml @ 400 mls/hr Q2H30M PRN IV PATENCY; Start 08/09/19 at 07:56; Stop 08/09/19 at 19:55; Status DC Info (PHARMACY MONITORING -- do not chart) 1 each PRN DAILY PRN MC SEE COMMENTS; Start 08/09/19 at 08:00; Status UNV Info (PHARMACY MONITORING -- do not chart) 1 each PRN DAILY PRN MC SEE COMMENTS; Start 08/09/19 at 08:00; Status UNV Daptomycin 430 mg/ Sodium Chloride 50 ml @ 100 mls/hr Q24H IV Last adminis tered on 08/09/19at 12:35; Start 08/09/19 at 09:00; Stop 08/09/19 at 12:49; Status DC Sodium Chloride 100 meq/Potassium Chloride 40 meq/ Magnesium Sulfate 20 meq/Calcium Gluconate 15 meq/ Multivitamins 10 ml/Chromium/ Copper/Manganese/ Seleni/Zn 0.5 ml/ Insulin Human Regular 35 unit/ Total Parenteral Nutrition/Amino Acids/Dextrose/ Fat Emulsion Intravenous 1,400 ml @ 58.333 mls/ hr TPN CONT IV Last administered on 08/09/19at 21:26; Start 08/09/19 at 22:00; Stop 08/10/19 at 21:59; Status DC Daptomycin 430 mg/ Sodium Chloride 50 ml @ 100 mls/hr Q48H IV ; Start 08/11/19 at 09:00; Stop 08/10/19 at 11:55; Status DC Sodium Chloride 100 meq/Potassium Chloride 40 meq/ Magnesium Sulfate 20 meq/Calcium Gluconate 15 meq/ Multivitamins 10 ml/Chromium/ Copper/Manganese/ Seleni/Zn 0.5 ml/ Insulin Human Regular 35 unit/ Total Parenteral Nutrition/Amino Acids/Dextrose/ Fat Emulsion Intravenous 1,400 ml @ 58.333 mls/ hr TPN CONT IV Last administered on 08/10/19at 22:27; Start 08/10/19 at 22:00; Stop 08/11/19 at 21:59; Status DC Daptomycin 430 mg/ Sodium Chloride 50 ml @ 100 mls/hr Q24H IV Last administered on 08/12/19at 15:07; Start 08/10/19 at 13:00; Stop 08/13/19 at 13:15; Status DC Sodium Chloride 100 meq/Potassium Chloride 40 meq/ Magnesium Sulfate 20 meq/Calcium Gluconate 10 meq/ Multivitamins 10 ml/Chromium/ Copper/Manganese/ Seleni/Zn 0.5 ml/ Insulin Human Regular 35 unit/ Total Parenteral Nutrition/Amino Acids/Dextrose/ Fat Emulsion Intravenous 1,400 ml @ 58.333 mls/ hr TPN CONT IV Last administered on 08/12/19at 00:06; Start 08/11/19 at 22:00; Stop 08/12/19 at 21:59; Status DC Alteplase, Recombinant (Cathflo For Central Catheter Clearance) 1 mg 1X ONCE INT CAT Last administered on 08/12/19at 11:44; Start 08/12/19 at 10:45; Stop 08/12/19 at 10:46; Status DC Ondansetron HCl (Zofran) 4 mg PRN Q6HRS PRN IV NAUSEA/VOMITING; Start 08/15/19 at 07:00; Stop 08/16/19 at 06:59 Fentanyl Citrate (Fentanyl 2ml Vial) 25 mcg PRN Q5MIN PRN IV MILD PAIN 1-3; Start 08/15/19 at 07:00; Stop 08/16/19 at 06:59 Fentanyl Citrate (Fentanyl 2ml Vial) 50 mcg PRN Q5MIN PRN IV MODERATE TO SEVERE PAIN; Start 08/15/19 at 07:00; Stop 08/16/19 at 06:59 Ringer's Solution 1,000 ml @ 30 mls/hr Q24H IV ; Start 08/15/19 at 07:00; Stop 08/15/19 at 18:59 Lidocaine HCl (Xylocaine-Mpf 1% 2ml Vial) 2 ml PRN 1X PRN ID PRIOR TO IV START; Start 08/15/19 at 07:00; Stop 08/16/19 at 06:59 Prochlorperazine Edisylate (Compazine) 5 mg PACU PRN PRN IV NAUSEA, MRX1; Start 08/15/19 at 07:00; Stop 08/16/19 at 06:59 Sodium Acetate 50 meq/Potassium Acetate 55 meq/ Magnesium Sulfate 20 meq/Calcium Gluconate 10 meq/ Multivitamins 10 ml/Chromium/ Copper/Manganese/ Seleni/Zn 0.5 ml/ Insulin Human Regular 35 unit/ Total Parenteral Nutrition/Amino Acids/Dextrose/ Fat Emulsion Intravenous 1,400 ml @ 58.333 mls/ hr TPN CONT IV ; Start 08/12/19 at 22:00; Stop 08/12/19 at 14:15; Status DC Sodium Acetate 50 meq/Potassium Acetate 55 meq/ Magnesium Sulfate 20 meq/Calcium Gluconate 10 meq/ Multivitamins 10 ml/Chromium/ Copper/Manganese/ Seleni/Zn 0.5 ml/ Insulin Human Regular 35 unit/ Total Parenteral Nutrition/Amino Acids/Dextrose/ Fat Emulsion Intravenous 1,800 ml @ 75 mls/hr TPN CONT IV Last administered on 08/12/19at 22:38; Start 08/12/19 at 22:00; Stop 08/13/19 at 21:59; Status DC Sodium Chloride 1,000 ml @ 1,000 mls/hr Q1H PRN IV hypotension; Start 08/12/19 at 15:31; Stop 08/12/19 at 21:30; Status DC Diphenhydramine HCl (Benadryl) 25 mg 1X PRN PRN IV ITCHING; Start 08/12/19 at 15:45; Stop 08/13/19 at 15:44; Status DC Diphenhydramine HCl (Benadryl) 25 mg 1X PRN PRN IV ITCHING; Start 08/12/19 at 15:45; Stop 08/13/19 at 15:44; Status DC Sodium Chloride 1,000 ml @ 400 mls/hr Q2H30M PRN IV PATENCY; Start 08/12/19 at 15:31; Stop 08/13/19 at 03:30; Status DC Info (PHARMACY MONITORING -- do not chart) 1 each PRN DAILY PRN MC SEE COMMENTS; Start 08/12/19 at 15:45 Sodium Acetate 50 meq/Potassium Acetate 55 meq/ Magnesium Sulfate 20 meq/Calcium Gluconate 10 meq/ Multivitamins 10 ml/Chromium/ Copper/Manganese/ Seleni/Zn 0.5 ml/ Insulin Human Regular 35 unit/ Total Parenteral Nutrition/Amino Acids/Dextrose/ Fat Emulsion Intravenous 1,800 ml @ 75 mls/hr TPN CONT IV Last administered on 08/13/19at 22:03; Start 08/13/19 at 22:00; Stop 08/14/19 at 21:59; Status DC Daptomycin 430 mg/ Sodium Chloride 50 ml @ 100 mls/hr Q24H IV Last administered on 08/14/19at 14:13; Start 08/13/19 at 13:00 Heparin Sodium (Porcine) 1000 unit/Sodium Chloride 1,001 ml @ 1,001 mls/hr 1X ONCE IRR ; Start 08/15/19 at 06:00; Stop 08/15/19 at 06:59; Status DC Potassium Acetate 55 meq/Magnesium Sulfate 20 meq/ Calcium Gluconate 10 meq/ Multivitamins 10 ml/Chromium/ Copper/Manganese/ Seleni/Zn 0.5 ml/ Insulin Human Regular 35 unit/ Total Parenteral Nutrition/Amino Acids/Dextrose/ Fat Emulsion Intravenous 1,920 ml @ 80 mls/hr TPN CONT IV Last administered on 08/14/19at 22:10; Start 08/14/19 at 22:00; Stop 08/15/19 at 21:59 Active Scripts Active Reported Bisoprolol Fumarate 5 Mg Tablet 10 Mg PO DAILY Vitals/I & O Vital Sign - Last 24 Hours 08/14/19 08/14/19 08/14/19 08/14/19 09:00 09:00 10:00 10:17 Pulse 79 81 Resp 21 29 26 B/P (MAP) 122/67 (85) 137/83 (101) Pulse Ox 98 99 99 O2 Delivery Ventilator Ventilator Ventilator Ventilator 08/14/19 08/14/19 08/14/19 08/14/19 10:47 11:00 11:41 12:00 Temp 100.3 100.3 Pulse 84 90 Resp 33 33 36 B/P (MAP) 140/71 (94) 128/68 (88) Pulse Ox 99 99 98 99 O2 Delivery Ventilator Ventilator Ventilator Ventilator 08/14/19 08/14/19 08/14/19 08/14/19 12:00 13:00 13:36 13:56 Pulse 80 Resp 25 27 B/P (MAP) 117/69 (85) Pulse Ox 99 99 100 O2 Delivery Mechanical Ventilator Ventilator Ventilator Ventilator 08/14/19 08/14/19 08/14/19 08/14/19 14:00 14:26 15:00 15:40 Pulse 99 93 Resp 37 29 32 B/P (MAP) 140/83 (102) 162/93 (116) Pulse Ox 100 99 99 99 O2 Delivery Ventilator Ventilator Ventilator Ventilator 08/14/19 08/14/19 08/14/19 08/14/19 16:00 16:00 16:29 16:59 Temp 101.1 101.1 Pulse 92 Resp 33 31 B/P (MAP) 148/84 (105) Pulse Ox 100 100 99 O2 Delivery Mechanical Ventilator Ventilator Ventilator Ventilator 08/14/19 08/14/19 08/14/19 08/14/19 17:00 17:29 18:00 19:00 Pulse 113 96 92 Resp 36 29 29 B/P (MAP) 168/91 (116) 168/92 (117) 140/74 (96) Pulse Ox 98 98 96 98 O2 Delivery Ventilator Ventilator Ventilator Ventilator 08/14/19 08/14/19 08/14/19 08/14/19 20:00 20:00 20:23 21:00 Temp 100.1 100.1 Pulse 86 80 Resp 34 23 B/P (MAP) 120/69 (86) 111/57 (75) Pulse Ox 97 97 97 O2 Delivery Ventilator Mechanical Ventilator Ventilator Ventilator 08/14/19 08/14/19 08/14/19 08/14/19 22:00 22:49 23:00 23:41 Pulse 86 108 Resp 31 26 29 B/P (MAP) 119/79 (92) 131/63 (85) Pulse Ox 99 99 97 97 O2 Delivery Ventilator Ventilator Ventilator Ventilator 08/15/19 08/15/19 08/15/19 08/15/19 00:00 00:08 01:00 01:56 Temp 101.1 101.1 Pulse 108 84 Resp 40 22 18 B/P (MAP) 133/83 (100) 117/64 (81) Pulse Ox 97 97 O2 Delivery Ventilator Mechanical Ventilator Ventilator Ventilator 08/15/19 08/15/19 08/15/19 08/15/19 02:00 02:30 03:00 04:00 Temp 100.5 100.2 100.5 100.2 Pulse 80 78 78 Resp 18 22 28 B/P (MAP) 121/73 (89) 147/75 (99) 130/80 (97) Pulse Ox 96 97 98 97 O2 Delivery Ventilator Ventilator Ventilator Ventilator 08/15/19 08/15/19 08/15/19 08/15/19 04:00 04:54 05:00 06:00 Pulse 80 74 Resp 18 18 B/P (MAP) 124/72 (89) 130/68 (88) Pulse Ox 97 98 97 O2 Delivery Mechanical Ventilator Ventilator Ventilator Ventilator 08/15/19 07:48 Pulse Ox 100 O2 Delivery Ventilator Intake and Output 08/14/19 08/14/19 08/15/19 15:00 23:00 07:00 Intake Total 150 ml 1446 ml 1154 ml Output Total 975 ml 1185 ml 915 ml Balance -825 ml 261 ml 239 ml Hemodynamically unstable?: No Is patient in severe pain?: No Is NPO status required?: Yes DAVIN LANDEROS MD Aug 15, 2019 08:53
[2019-08-15] MEDS: MEROPENEM 500 MG in IV NORMAL SALINE 50ML 50 ML IV SCH ×2 (09:24→22:00)
--- NOTE | 2019-08-15 09:35 | PDOC ---
PULMONARY PROGRESS NOTES Subjective Patient intubated on 07/10 , s/p trach 07/24, on vent Taken to the OR earlier today. She has a drains in place Vitals Vital Signs Date Time Temp Pulse Resp B/P (MAP) Pulse Ox O2 Delivery O2 Flow Rate FiO2 08/15/19 09:00 88 23 120/73 (89) 98 Ventilator 08/15/19 08:00 100.2 100.2 Comments ros unable to obtain on vent General: Alert HEENT: Other (nc at perrl nose clear nech trach site ok no lad no thyromegaly) Lungs: Crackles, Other (dimished in BLL nc at perrl nose clear neck trach site ok no lad no thyromegaly) Cardiovascular: S1, S2 Abdomen: Soft, Non-tender, Other (distended) Neuro Exam: Alert Extremities: Other (+3 generalized edema ) Skin: Warm, Dry Labs Laboratory Tests Test 08/13/19 12:02 08/13/19 17:54 08/14/19 00:25 08/14/19 05:45 Glucose (Fingerstick) 142 mg/dL (70-99) 128 mg/dL (70-99) 129 mg/dL (70-99) 137 mg/dL (70-99) Test 08/14/19 06:00 08/14/19 12:09 08/14/19 17:28 08/15/19 00:41 White Blood Count 9.3 x10^3/uL (4.0-11.0) Red Blood Count 2.60 x10^6/uL (3.50-5.40) Hemoglobin 7.7 g/dL (12.0-15.5) Hematocrit 23.6 % (36.0-47.0) Mean Corpuscular Volume 91 fL (79-100) Mean Corpuscular Hemoglobin 30 pg (25-35) Mean Corpuscular Hemoglobin Concent 33 g/dL (31-37) Red Cell Distribution Width 18.3 % (11.5-14.5) Platelet Count 286 x10^3/uL (140-400) Neutrophils (%) (Auto) 79 % (31-73) Lymphocytes (%) (Auto) 14 % (24-48) Monocytes (%) (Auto) 6 % (0-9) Eosinophils (%) (Auto) 1 % (0-3) Basophils (%) (Auto) 0 % (0-3) Neutrophils # (Auto) 7.4 x10^3/uL (1.8-7.7) Lymphocytes # (Auto) 1.2 x10^3/uL (1.0-4.8) Monocytes # (Auto) 0.6 x10^3/uL (0.0-1.1) Eosinophils # (Auto) 0.1 x10^3/uL (0.0-0.7) Basophils # (Auto) 0.0 x10^3/uL (0.0-0.2) Sodium Level 149 mmol/L (136-145) Potassium Level 3.5 mmol/L (3.5-5.1) Chloride Level 110 mmol/L (98-107) Carbon Dioxide Level 28 mmol/L (21-32) Anion Gap 11 (6-14) Blood Urea Nitrogen 60 mg/dL (7-20) Creatinine 1.0 mg/dL (0.6-1.0) Estimated GFR (Cockcroft-Gault) 58.9 Glucose Level 142 mg/dL (70-99) Calcium Level 8.6 mg/dL (8.5-10.1) Glucose (Fingerstick) 148 mg/dL (70-99) 144 mg/dL (70-99) 134 mg/dL (70-99) Test 08/15/19 04:30 White Blood Count 9.2 x10^3/uL (4.0-11.0) Red Blood Count 2.72 x10^6/uL (3.50-5.40) Hemoglobin 8.2 g/dL (12.0-15.5) Hematocrit 24.6 % (36.0-47.0) Mean Corpuscular Volume 90 fL (79-100) Mean Corpuscular Hemoglobin 30 pg (25-35) Mean Corpuscular Hemoglobin Concent 33 g/dL (31-37) Red Cell Distribution Width 18.4 % (11.5-14.5) Platelet Count 323 x10^3/uL (140-400) Neutrophils (%) (Auto) 78 % (31-73) Lymphocytes (%) (Auto) 15 % (24-48) Monocytes (%) (Auto) 6 % (0-9) Eosinophils (%) (Auto) 1 % (0-3) Basophils (%) (Auto) 0 % (0-3) Neutrophils # (Auto) 7.1 x10^3/uL (1.8-7.7) Lymphocytes # (Auto) 1.4 x10^3/uL (1.0-4.8) Monocytes # (Auto) 0.5 x10^3/uL (0.0-1.1) Eosinophils # (Auto) 0.1 x10^3/uL (0.0-0.7) Basophils # (Auto) 0.0 x10^3/uL (0.0-0.2) Sodium Level 149 mmol/L (136-145) Potassium Level 3.6 mmol/L (3.5-5.1) Chloride Level 111 mmol/L (98-107) Carbon Dioxide Level 30 mmol/L (21-32) Anion Gap 8 (6-14) Blood Urea Nitrogen 57 mg/dL (7-20) Creatinine 1.1 mg/dL (0.6-1.0) Estimated GFR (Cockcroft-Gault) 52.8 Glucose Level 123 mg/dL (70-99) Calcium Level 8.5 mg/dL (8.5-10.1) Creatine Kinase 24 U/L (26-192) Laboratory Tests Test 08/14/19 12:09 08/14/19 17:28 08/15/19 00:41 08/15/19 04:30 Glucose (Fingerstick) 148 mg/dL (70-99) 144 mg/dL (70-99) 134 mg/dL (70-99) White Blood Count 9.2 x10^3/uL (4.0-11.0) Red Blood Count 2.72 x10^6/uL (3.50-5.40) Hemoglobin 8.2 g/dL (12.0-15.5) Hematocrit 24.6 % (36.0-47.0) Mean Corpuscular Volume 90 fL (79-100) Mean Corpuscular Hemoglobin 30 pg (25-35) Mean Corpuscular Hemoglobin Concent 33 g/dL (31-37) Red Cell Distribution Width 18.4 % (11.5-14.5) Platelet Count 323 x10^3/uL (140-400) Neutrophils (%) (Auto) 78 % (31-73) Lymphocytes (%) (Auto) 15 % (24-48) Monocytes (%) (Auto) 6 % (0-9) Eosinophils (%) (Auto) 1 % (0-3) Basophils (%) (Auto) 0 % (0-3) Neutrophils # (Auto) 7.1 x10^3/uL (1.8-7.7) Lymphocytes # (Auto) 1.4 x10^3/uL (1.0-4.8) Monocytes # (Auto) 0.5 x10^3/uL (0.0-1.1) Eosinophils # (Auto) 0.1 x10^3/uL (0.0-0.7) Basophils # (Auto) 0.0 x10^3/uL (0.0-0.2) Sodium Level 149 mmol/L (136-145) Potassium Level 3.6 mmol/L (3.5-5.1) Chloride Level 111 mmol/L (98-107) Carbon Dioxide Level 30 mmol/L (21-32) Anion Gap 8 (6-14) Blood Urea Nitrogen 57 mg/dL (7-20) Creatinine 1.1 mg/dL (0.6-1.0) Estimated GFR (Cockcroft-Gault) 52.8 Glucose Level 123 mg/dL (70-99) Calcium Level 8.5 mg/dL (8.5-10.1) Creatine Kinase 24 U/L (26-192) Medications Active Scripts Medications Dose Route/Sig Max Daily Dose Days Date Category Bisoprolol Fumarate 5 Mg Tablet 10 Mg PO DAILY 07/04/19 Reported Comments cxr reviewed. Impression . IMPRESSION: 1. Acute hypoxemic respiratory failure secondary to ARDS status post trach, 2. Gallstone pancreatitis 3. Severe metabolic acidosis.stable 4. Acute kidney injury-stable, ON HD-- continue to improve 5. Acute gallstone pancreatitis. 6. Hypoalbuminemia. 7. Moderate persistent effusions 8. Fever-persist. Per ID, per surgery 9. Chronic anemia 10. Covid 19 testing negative 11. Moderate to large ascites-S/P paracentisis S/P paracentisis with 4 liters removed on 08/03/19 Surgery note Operative Note: After obtaining informed consent, patient was taken to OR, induced under GETA and prepped in the usual fashion. 5 mm port placed umbilical and right mid abdomen, all under laparoscopic guidance. Large amount of ascites encountered and aspirated off. Fluid was clear with some whitish debris. Viscera was completely locked in with obliteration of all planes, preventing any significant exploration. Copious irrigation. Given patient's overall clinical improvement, favor against open procedure and attempt at cholecystectomy and/or necrosectomy, given high risk of complications. Cholecystectomy will need to be performed, but favor waiting 3 months. 19 KAYLIN drain placed and secured with 3 0 nylon. Skin repaired with 4 0 monocryl. Dressing placed. Patient tolerated procedure well and sent to PACU in stable condition. All counts correct. Wound class is 4. Plan . We will continue our efforts at weaning Follow surgery input hep sq and protonix for prophylaxis Follow ID rec, abx per id Follow nephrology recs Nutritional support per surgery continue TPN for nutrition DVT/GI PPX am cxr d/w RN/RT HARMEET BEE MD Aug 15, 2019 09:35
--- NOTE | 2019-08-15 10:50 | PDOC ---
Objective: Objective: D/w nurse - to go to OR shortly. Mom allowed to come visit. Vital Signs: Vital Signs Date Time Temp Pulse Resp B/P (MAP) Pulse Ox O2 Delivery O2 Flow Rate FiO2 08/15/19 10:17 99 Ventilator 08/15/19 10:00 94 27 151/82 (105) 08/15/19 08:00 100.2 100.2 Labs: Laboratory Tests Test 08/14/19 12:09 08/14/19 17:28 08/15/19 00:41 08/15/19 04:30 Glucose (Fingerstick) 148 mg/dL 144 mg/dL 134 mg/dL White Blood Count 9.2 x10^3/uL Red Blood Count 2.72 x10^6/uL Hemoglobin 8.2 g/dL Hematocrit 24.6 % Mean Corpuscular Volume 90 fL Mean Corpuscular Hemoglobin 30 pg Mean Corpuscular Hemoglobin Concent 33 g/dL Red Cell Distribution Width 18.4 % Platelet Count 323 x10^3/uL Neutrophils (%) (Auto) 78 % Lymphocytes (%) (Auto) 15 % Monocytes (%) (Auto) 6 % Eosinophils (%) (Auto) 1 % Basophils (%) (Auto) 0 % Neutrophils # (Auto) 7.1 x10^3/uL Lymphocytes # (Auto) 1.4 x10^3/uL Monocytes # (Auto) 0.5 x10^3/uL Eosinophils # (Auto) 0.1 x10^3/uL Basophils # (Auto) 0.0 x10^3/uL Sodium Level 149 mmol/L Potassium Level 3.6 mmol/L Chloride Level 111 mmol/L Carbon Dioxide Level 30 mmol/L Anion Gap 8 Blood Urea Nitrogen 57 mg/dL Creatinine 1.1 mg/dL Estimated GFR (Cockcroft-Gault) 52.8 Glucose Level 123 mg/dL Calcium Level 8.5 mg/dL Creatine Kinase 24 U/L PE: GEN: NAD - family present, did not disturb LUNGS: trach/vent NEURO/PSYCH: awake A/P: Gallstone pancreatitis w/ necrosis, MOSF -- To OR, will follow. Hemodynamically unstable?: No Is patient in severe pain?: No Is NPO status required?: Yes CYNDEE FALCON Aug 15, 2019 10:50
[2019-08-15] MEDS ORDERED: DEXAMETHASONE SOD PHOS 4 MG/ML VIAL ONE (10:56)
[2019-08-15] MEDS ORDERED: ROCURONIUM 50 MG/5 ML VIAL. ONE (10:56)
[2019-08-15] MEDS ORDERED: ONDANSETRON PF 4 MG/2 ML VIAL. ONE (10:56)
[2019-08-15] MEDS ORDERED: fentaNYL PF VIAL 100 MCG/2 ML VIAL ONE (10:56)
[2019-08-15] MEDS ORDERED: IOHEXOL 300 MG/ML 50 ML VIAL. ONE (10:58)
[2019-08-15] MEDS ORDERED: SURGICEL HEMOSTAT 4X8 EACH. ONE (10:58)
[2019-08-15] MEDS ORDERED: SURGICEL HEMOSTAT 2X14 EACH. ONE (10:58)
[2019-08-15] MEDS ORDERED: BUPIVACAINE-EPI 0.5%-1:200000 MPF 30 ML VIAL. ONE (10:58)
[2019-08-15] MEDS ORDERED: BISACODYL 10 MG SUPP.RECT. ONE (10:59)
[2019-08-15] MEDS ORDERED: SEVOFLURANE > 120 MINUTES. IH ONE (11:05)
[2019-08-15] MEDS ORDERED: PROPOFOL 20 ML IV ONE ×2 (11:05→12:26)
--- NOTE | 2019-08-15 11:30 | NUR ---
Pt to the OR with anesthesia, RNx2. Mother at bedside.
--- NOTE | 2019-08-15 11:30 | PDOC ---
SURGICAL PROGRESS NOTE Subjective Pre-Op Note 48 yo F with severe pancreatitis. TO OR for laparoscopic versus open cholecystectomy with cholangiogram, pancreatic necrosectomy. R/R/B/A d/w pt and pt's mother. Vital Signs Vital Signs Date Time Temp Pulse Resp B/P (MAP) Pulse Ox O2 Delivery O2 Flow Rate FiO2 08/15/19 11:00 76 24 155/76 (102) 99 Ventilator 08/15/19 08:00 100.2 100.2 I&O Intake and Output 08/15/19 07:00 Intake Total 2750 ml Output Total 3075 ml Balance -325 ml Intake Oral 0 ml IV Total 2750 ml Output Urine Total 3075 ml Labs Laboratory Tests Test 08/13/19 12:02 08/13/19 17:54 08/14/19 00:25 08/14/19 05:45 Glucose (Fingerstick) 142 mg/dL (70-99) 128 mg/dL (70-99) 129 mg/dL (70-99) 137 mg/dL (70-99) Test 08/14/19 06:00 08/14/19 12:09 08/14/19 17:28 08/15/19 00:41 White Blood Count 9.3 x10^3/uL (4.0-11.0) Red Blood Count 2.60 x10^6/uL (3.50-5.40) Hemoglobin 7.7 g/dL (12.0-15.5) Hematocrit 23.6 % (36.0-47.0) Mean Corpuscular Volume 91 fL (79-100) Mean Corpuscular Hemoglobin 30 pg (25-35) Mean Corpuscular Hemoglobin Concent 33 g/dL (31-37) Red Cell Distribution Width 18.3 % (11.5-14.5) Platelet Count 286 x10^3/uL (140-400) Neutrophils (%) (Auto) 79 % (31-73) Lymphocytes (%) (Auto) 14 % (24-48) Monocytes (%) (Auto) 6 % (0-9) Eosinophils (%) (Auto) 1 % (0-3) Basophils (%) (Auto) 0 % (0-3) Neutrophils # (Auto) 7.4 x10^3/uL (1.8-7.7) Lymphocytes # (Auto) 1.2 x10^3/uL (1.0-4.8) Monocytes # (Auto) 0.6 x10^3/uL (0.0-1.1) Eosinophils # (Auto) 0.1 x10^3/uL (0.0-0.7) Basophils # (Auto) 0.0 x10^3/uL (0.0-0.2) Sodium Level 149 mmol/L (136-145) Potassium Level 3.5 mmol/L (3.5-5.1) Chloride Level 110 mmol/L (98-107) Carbon Dioxide Level 28 mmol/L (21-32) Anion Gap 11 (6-14) Blood Urea Nitrogen 60 mg/dL (7-20) Creatinine 1.0 mg/dL (0.6-1.0) Estimated GFR (Cockcroft-Gault) 58.9 Glucose Level 142 mg/dL (70-99) Calcium Level 8.6 mg/dL (8.5-10.1) Glucose (Fingerstick) 148 mg/dL (70-99) 144 mg/dL (70-99) 134 mg/dL (70-99) Test 08/15/19 04:30 White Blood Count 9.2 x10^3/uL (4.0-11.0) Red Blood Count 2.72 x10^6/uL (3.50-5.40) Hemoglobin 8.2 g/dL (12.0-15.5) Hematocrit 24.6 % (36.0-47.0) Mean Corpuscular Volume 90 fL (79-100) Mean Corpuscular Hemoglobin 30 pg (25-35) Mean Corpuscular Hemoglobin Concent 33 g/dL (31-37) Red Cell Distribution Width 18.4 % (11.5-14.5) Platelet Count 323 x10^3/uL (140-400) Neutrophils (%) (Auto) 78 % (31-73) Lymphocytes (%) (Auto) 15 % (24-48) Monocytes (%) (Auto) 6 % (0-9) Eosinophils (%) (Auto) 1 % (0-3) Basophils (%) (Auto) 0 % (0-3) Neutrophils # (Auto) 7.1 x10^3/uL (1.8-7.7) Lymphocytes # (Auto) 1.4 x10^3/uL (1.0-4.8) Monocytes # (Auto) 0.5 x10^3/uL (0.0-1.1) Eosinophils # (Auto) 0.1 x10^3/uL (0.0-0.7) Basophils # (Auto) 0.0 x10^3/uL (0.0-0.2) Sodium Level 149 mmol/L (136-145) Potassium Level 3.6 mmol/L (3.5-5.1) Chloride Level 111 mmol/L (98-107) Carbon Dioxide Level 30 mmol/L (21-32) Anion Gap 8 (6-14) Blood Urea Nitrogen 57 mg/dL (7-20) Creatinine 1.1 mg/dL (0.6-1.0) Estimated GFR (Cockcroft-Gault) 52.8 Glucose Level 123 mg/dL (70-99) Calcium Level 8.5 mg/dL (8.5-10.1) Creatine Kinase 24 U/L (26-192) Laboratory Tests Test 08/14/19 12:09 08/14/19 17:28 08/15/19 00:41 08/15/19 04:30 Glucose (Fingerstick) 148 mg/dL (70-99) 144 mg/dL (70-99) 134 mg/dL (70-99) White Blood Count 9.2 x10^3/uL (4.0-11.0) Red Blood Count 2.72 x10^6/uL (3.50-5.40) Hemoglobin 8.2 g/dL (12.0-15.5) Hematocrit 24.6 % (36.0-47.0) Mean Corpuscular Volume 90 fL (79-100) Mean Corpuscular Hemoglobin 30 pg (25-35) Mean Corpuscular Hemoglobin Concent 33 g/dL (31-37) Red Cell Distribution Width 18.4 % (11.5-14.5) Platelet Count 323 x10^3/uL (140-400) Neutrophils (%) (Auto) 78 % (31-73) Lymphocytes (%) (Auto) 15 % (24-48) Monocytes (%) (Auto) 6 % (0-9) Eosinophils (%) (Auto) 1 % (0-3) Basophils (%) (Auto) 0 % (0-3) Neutrophils # (Auto) 7.1 x10^3/uL (1.8-7.7) Lymphocytes # (Auto) 1.4 x10^3/uL (1.0-4.8) Monocytes # (Auto) 0.5 x10^3/uL (0.0-1.1) Eosinophils # (Auto) 0.1 x10^3/uL (0.0-0.7) Basophils # (Auto) 0.0 x10^3/uL (0.0-0.2) Sodium Level 149 mmol/L (136-145) Potassium Level 3.6 mmol/L (3.5-5.1) Chloride Level 111 mmol/L (98-107) Carbon Dioxide Level 30 mmol/L (21-32) Anion Gap 8 (6-14) Blood Urea Nitrogen 57 mg/dL (7-20) Creatinine 1.1 mg/dL (0.6-1.0) Estimated GFR (Cockcroft-Gault) 52.8 Glucose Level 123 mg/dL (70-99) Calcium Level 8.5 mg/dL (8.5-10.1) Creatine Kinase 24 U/L (26-192) Problem List Problems Medical Problems: (1) Acute pancreatitis Status: Acute (2) Cholelithiasis Status: Acute DAVON SIMMS MD Aug 15, 2019 11:30
--- NOTE | 2019-08-15 11:35 | PDOC ---
PROGRESS NOTES Assessment Problems Medical Problems: (1) Acute pancreatitis Status: Acute (2) Cholelithiasis Status: Acute Respiratory failure. Seizure. Metabolic encephalopathy. Fevers. Metabolic acidosis. Diffuse pulmonary infiltrate. Pleural effusion. Pancreatitis, necrotizing. Gallstone. Leukocytosis. Lymphopenia. Electrolytes imbalances. Hyperglycemia. DM. HTN. HLD. Anemia. Abnormal CXR. Obesity. Ascites and pleural effusion Going to surgery today Plan Keppra if she has further seizures. Treat medical diseases. Subjective none Objective Vital Signs Date Time Temp Pulse Resp B/P (MAP) Pulse Ox O2 Delivery O2 Flow Rate FiO2 08/15/19 11:00 76 24 155/76 (102) 99 Ventilator 08/15/19 08:00 100.2 100.2 Intake and Output 08/15/19 07:00 Intake Total 2750 ml Output Total 3075 ml Balance -325 ml Intake Oral 0 ml IV Total 2750 ml Output Urine Total 3075 ml PHYSICAL EXAM Alert. Tracheostomy in place. Mouths replies. Tracks with her eyes, moves extremities to commands PERRL. EOMI. CN: no focal findings. Muscle tone: normal. Muscle strength: Moves all extremities, 3/5 strength in arms, 2/5 and legs DTR: 1+ Plantar reflex: Silent Gait: not examined in bed. Sensory exam: no abnormal findings. No cerebellar signs elicited. Review of Relevant I have reviewed the following items kolby (where applicable) has been applied. Labs Laboratory Tests Test 08/13/19 12:02 08/13/19 17:54 08/14/19 00:25 08/14/19 05:45 Glucose (Fingerstick) 142 mg/dL (70-99) 128 mg/dL (70-99) 129 mg/dL (70-99) 137 mg/dL (70-99) Test 08/14/19 06:00 08/14/19 12:09 08/14/19 17:28 08/15/19 00:41 White Blood Count 9.3 x10^3/uL (4.0-11.0) Red Blood Count 2.60 x10^6/uL (3.50-5.40) Hemoglobin 7.7 g/dL (12.0-15.5) Hematocrit 23.6 % (36.0-47.0) Mean Corpuscular Volume 91 fL (79-100) Mean Corpuscular Hemoglobin 30 pg (25-35) Mean Corpuscular Hemoglobin Concent 33 g/dL (31-37) Red Cell Distribution Width 18.3 % (11.5-14.5) Platelet Count 286 x10^3/uL (140-400) Neutrophils (%) (Auto) 79 % (31-73) Lymphocytes (%) (Auto) 14 % (24-48) Monocytes (%) (Auto) 6 % (0-9) Eosinophils (%) (Auto) 1 % (0-3) Basophils (%) (Auto) 0 % (0-3) Neutrophils # (Auto) 7.4 x10^3/uL (1.8-7.7) Lymphocytes # (Auto) 1.2 x10^3/uL (1.0-4.8) Monocytes # (Auto) 0.6 x10^3/uL (0.0-1.1) Eosinophils # (Auto) 0.1 x10^3/uL (0.0-0.7) Basophils # (Auto) 0.0 x10^3/uL (0.0-0.2) Sodium Level 149 mmol/L (136-145) Potassium Level 3.5 mmol/L (3.5-5.1) Chloride Level 110 mmol/L (98-107) Carbon Dioxide Level 28 mmol/L (21-32) Anion Gap 11 (6-14) Blood Urea Nitrogen 60 mg/dL (7-20) Creatinine 1.0 mg/dL (0.6-1.0) Estimated GFR (Cockcroft-Gault) 58.9 Glucose Level 142 mg/dL (70-99) Calcium Level 8.6 mg/dL (8.5-10.1) Glucose (Fingerstick) 148 mg/dL (70-99) 144 mg/dL (70-99) 134 mg/dL (70-99) Test 08/15/19 04:30 White Blood Count 9.2 x10^3/uL (4.0-11.0) Red Blood Count 2.72 x10^6/uL (3.50-5.40) Hemoglobin 8.2 g/dL (12.0-15.5) Hematocrit 24.6 % (36.0-47.0) Mean Corpuscular Volume 90 fL (79-100) Mean Corpuscular Hemoglobin 30 pg (25-35) Mean Corpuscular Hemoglobin Concent 33 g/dL (31-37) Red Cell Distribution Width 18.4 % (11.5-14.5) Platelet Count 323 x10^3/uL (140-400) Neutrophils (%) (Auto) 78 % (31-73) Lymphocytes (%) (Auto) 15 % (24-48) Monocytes (%) (Auto) 6 % (0-9) Eosinophils (%) (Auto) 1 % (0-3) Basophils (%) (Auto) 0 % (0-3) Neutrophils # (Auto) 7.1 x10^3/uL (1.8-7.7) Lymphocytes # (Auto) 1.4 x10^3/uL (1.0-4.8) Monocytes # (Auto) 0.5 x10^3/uL (0.0-1.1) Eosinophils # (Auto) 0.1 x10^3/uL (0.0-0.7) Basophils # (Auto) 0.0 x10^3/uL (0.0-0.2) Sodium Level 149 mmol/L (136-145) Potassium Level 3.6 mmol/L (3.5-5.1) Chloride Level 111 mmol/L (98-107) Carbon Dioxide Level 30 mmol/L (21-32) Anion Gap 8 (6-14) Blood Urea Nitrogen 57 mg/dL (7-20) Creatinine 1.1 mg/dL (0.6-1.0) Estimated GFR (Cockcroft-Gault) 52.8 Glucose Level 123 mg/dL (70-99) Calcium Level 8.5 mg/dL (8.5-10.1) Creatine Kinase 24 U/L (26-192) Laboratory Tests Test 08/14/19 12:09 08/14/19 17:28 08/15/19 00:41 08/15/19 04:30 Glucose (Fingerstick) 148 mg/dL (70-99) 144 mg/dL (70-99) 134 mg/dL (70-99) White Blood Count 9.2 x10^3/uL (4.0-11.0) Red Blood Count 2.72 x10^6/uL (3.50-5.40) Hemoglobin 8.2 g/dL (12.0-15.5) Hematocrit 24.6 % (36.0-47.0) Mean Corpuscular Volume 90 fL (79-100) Mean Corpuscular Hemoglobin 30 pg (25-35) Mean Corpuscular Hemoglobin Concent 33 g/dL (31-37) Red Cell Distribution Width 18.4 % (11.5-14.5) Platelet Count 323 x10^3/uL (140-400) Neutrophils (%) (Auto) 78 % (31-73) Lymphocytes (%) (Auto) 15 % (24-48) Monocytes (%) (Auto) 6 % (0-9) Eosinophils (%) (Auto) 1 % (0-3) Basophils (%) (Auto) 0 % (0-3) Neutrophils # (Auto) 7.1 x10^3/uL (1.8-7.7) Lymphocytes # (Auto) 1.4 x10^3/uL (1.0-4.8) Monocytes # (Auto) 0.5 x10^3/uL (0.0-1.1) Eosinophils # (Auto) 0.1 x10^3/uL (0.0-0.7) Basophils # (Auto) 0.0 x10^3/uL (0.0-0.2) Sodium Level 149 mmol/L (136-145) Potassium Level 3.6 mmol/L (3.5-5.1) Chloride Level 111 mmol/L (98-107) Carbon Dioxide Level 30 mmol/L (21-32) Anion Gap 8 (6-14) Blood Urea Nitrogen 57 mg/dL (7-20) Creatinine 1.1 mg/dL (0.6-1.0) Estimated GFR (Cockcroft-Gault) 52.8 Glucose Level 123 mg/dL (70-99) Calcium Level 8.5 mg/dL (8.5-10.1) Creatine Kinase 24 U/L (26-192) Microbiology 08/03/19 Aerobic and Anaerobic Culture - Final, Complete 08/03/19 Anaerobic Culture Result 1 (ALEXANDRA) - Final, Complete 08/03/19 Aerobic Culture - Final, Complete 08/03/19 Aerobic Culture Result 1 (ALEXANDRA) - Final, Complete 08/03/19 Gram Stain - Final, Complete 08/03/19 Gram Stain Result 1 (ALEXANDRA) - Final, Complete 08/03/19 Gram Stain Result 2 (ALEXANDRA) - Final, Complete 08/02/19 Blood Culture - Final, Complete NO GROWTH AFTER 5 DAYS 07/31/19 Urine Culture - Final, Complete 07/31/19 Urine Culture Result 1 (ALEXANDRA) - Final, Complete Medications Current Medications Sodium Chloride 1,000 ml @ 1,000 mls/hr Q1H IV Last administered on 07/04/19at 03:00; Start 07/04/19 at 03:00; Stop 07/04/19 at 03:59; Status DC Ondansetron HCl (Zofran) 4 mg 1X ONCE IVP Last administered on 07/04/19at 03:2 7; Start 07/04/19 at 03:00; Stop 07/04/19 at 03:01; Status DC Morphine Sulfate (Morphine Sulfate) 4 mg 1X ONCE IV ; Start 07/04/19 at 03:00; Stop 07/04/19 at 03:01; Status Cancel Ketorolac Tromethamine (Toradol 30mg Vial) 30 mg 1X ONCE IV Last administered on 07/04/19at 02:54; Start 07/04/19 at 03:00; Stop 07/04/19 at 03:01; Status DC Fentanyl Citrate (Fentanyl 2ml Vial) 25 mcg 1X ONCE IVP Last administered on 07/04/19at 03:23; Start 07/04/19 at 03:30; Stop 07/04/19 at 03:31; Status DC Fentanyl Citrate (Fentanyl 2ml Vial) 100 mcg STK-MED ONCE .ROUTE ; Start 07/04/19 at 03:18; Stop 07/04/19 at 03:18; Status DC Iohexol (Omnipaque 350 Mg/ml) 90 ml 1X ONCE IV Last administered on 07/04/19at 03:25; Start 07/04/19 at 03:30; Stop 07/04/19 at 03:31; Status DC Info (CONTRAST GIVEN -- Rx MONITORING) 1 each PRN DAILY PRN MC SEE COMMENTS; Start 07/04/19 at 03:30; Stop 07/06/19 at 03:29; Status DC Hydromorphone HCl (Dilaudid) 0.5 mg 1X ONCE IV Last administered on 07/04/19at 03:55; Start 07/04/19 at 04:30; Stop 07/04/19 at 04:32; Status DC Ondansetron HCl (Zofran) 4 mg PRN Q8HRS PRN IV NAUSEA/VOMITING 1ST CHOICE; Start 07/04/19 at 05:00; Stop 07/04/19 at 09:27; Status DC Morphine Sulfate (Morphine Sulfate) 2 mg PRN Q2HR PRN IV SEVERE PAIN 7-10 Last administered on 07/05/19at 12:26; Start 07/04/19 at 05:00; Stop 07/05/19 at 14:15; Status DC Sodium Chloride 1,000 ml @ 125 mls/hr Q8H IV Last administered on 07/04/19at 20:56; Start 07/04/19 at 05:00; Stop 07/05/19 at 04:59; Status DC Hydromorphone HCl (Dilaudid) 0.5 mg PRN Q3HRS PRN IV SEVERE PAIN 7-10 Last administered on 07/05/19at 10:06; Start 07/04/19 at 05:00; Stop 07/05/19 at 12 :01; Status DC Piperacillin Sod/ Tazobactam Sod 4.5 gm/Sodium Chloride 100 ml @ 200 mls/hr 1X ONCE IV Last administered on 07/04/19at 05:44; Start 07/04/19 at 06:00; Stop 07/04/19 at 06:29; Status DC Ondansetron HCl (Zofran) 4 mg PRN Q4HRS PRN IV NAUSEA/VOMITING 1ST CHOICE Last administered on 08/12/19at 11:01; Start 07/04/19 at 09:30 Insulin Human Lispro (HumaLOG) 0-9 UNITS Q6HRS SQ Last administered on 08/12/19at 13:19; Start 07/04/19 at 09:30 Dextrose (Dextrose 50%-Water Syringe) 12.5 gm PRN Q15MIN PRN IV SEE COMMENTS; Start 07/04/19 at 09:30 Pantoprazole Sodium (PROTONIX VIAL for IV PUSH) 40 mg DAILYAC IVP Last administered on 08/15/19at 08:08; Start 07/04/19 at 11:30 Prochlorperazine Edisylate (Compazine) 10 mg PRN Q6HRS PRN IV NAUSEA/VOMITING, 2nd CHOICE Last administered on 08/12/19at 08:42; Start 07/04/19 at 17:45 Atenolol (Tenormin) 100 mg DAILY PO ; Start 07/05/19 at 09:00; Stop 07/04/19 at 20:08; Status DC Metoprolol Tartrate (Lopressor Vial) 2.5 mg Q6HRS IVP Last administered on 07/05/19at 05:51; Start 07/04/19 at 20:15; Stop 07/05/19 at 10:02; Status DC Metoprolol Tartrate (Lopressor Vial) 5 mg Q6HRS IVP Last administered on 07/14/19at 00:12; Start 07/05/19 at 10:15; Stop 07/16/19 at 08:48; Status DC Hydromorphone HCl (Dilaudid) 1 mg PRN Q3HRS PRN IV SEVERE PAIN 7-10 Last administered on 07/11/19at 05:13; Start 07/05/19 at 12:00; Stop 07/19/19 at 00:25; Status DC Lidocaine HCl (Buffered Lidocaine 1%) 3 ml STK-MED ONCE .ROUTE ; Start 07/05/19 at 12:55; Stop 07/05/19 at 12:56; Status DC Albumin Human 500 ml @ 125 mls/hr 1X ONCE IV Last administered on 07/05/19at 14:33; Start 07/05/19 at 14:30; Stop 07/05/19 at 18:32; Status DC Norepinephrine Bitartrate 8 mg/ Dextrose 258 ml @ 17.299 mls/ hr CONT PRN IV PER PROTOCOL Last administered on 08/02/19at 12:48; Start 07/05/19 at 15:30; Stop 08/05/19 at 09:19; Status DC Sodium Chloride 1,000 ml @ 125 mls/hr Q8H IV Last administered on 07/05/19at 21:04; Start 07/05/19 at 16:00; Stop 07/06/19 at 02:42; Status DC Albumin Human 500 ml @ 125 mls/hr PRN BID PRN IV After every 2L NSS & BP < 90mm Last administered on 07/20/19at 14:21; Start 07/05/19 at 16:00 Iohexol (Omnipaque 300 Mg/ml) 60 ml 1X ONCE IV Last administered on 07/05/19at 17:20; Start 07/05/19 at 17:00; Stop 07/05/19 at 17:01; Status DC Info (CONTRAST GIVEN -- Rx MONITORING) 1 each PRN DAILY PRN MC SEE COMMENTS; Start 07/05/19 at 17:00; Stop 07/07/19 at 16:59; Status DC Meropenem 1 gm/ Sodium Chloride 100 ml @ 200 mls/hr Q8HRS IV Last administered on 07/06/19at 05:45; Start 07/05/19 at 20:00; Stop 07/06/19 at 08:48; Status DC Furosemide (Lasix) 40 mg 1X ONCE IVP Last administered on 07/05/19at 22:12; Start 07/05/19 at 22:30; Stop 07/05/19 at 22:31; Status DC Calcium Chloride 1000 mg/Sodium Chloride 110 ml @ 220 mls/hr 1X ONCE IV Last administered on 07/05/19at 22:11; Start 07/05/19 at 22:30; Stop 07/05/19 at 22:59; Status DC Albuterol Sulfate (Ventolin Neb Soln) 2.5 mg 1X ONCE NEB Last administered on 07/06/19at 00:56; Start 07/05/19 at 22:30; Stop 07/05/19 at 22:31; Status DC Insulin Human Regular (HumuLIN R VIAL) 5 unit 1X ONCE IV Last administered on 07/05/19at 22:14; Start 07/05/19 at 22:30; Stop 07/05/19 at 22:31; Status DC Magnesium Sulfate 50 ml @ 25 mls/hr 1X ONCE IV Last administered on 07/06/19at 02:57; Start 07/06/19 at 03:00; Stop 07/06/19 at 04:59; Status DC Calcium Gluconate 1000 mg/Sodium Chloride 110 ml @ 220 mls/hr 1X ONCE IV Last administered on 07/06/19at 02:46; Start 07/06/19 at 03:00; Stop 07/06/19 at 03:29; Status DC Sodium Chloride 1,000 ml @ 200 mls/hr Q5H IV Last administered on 07/06/19at 02:46; Start 3/18/20 at 03:00; Stop 07/06/19 at 10:21; Status DC Calcium Gluconate 1000 mg/Sodium Chloride 110 ml @ 220 mls/hr 1X ONCE IV Last administered on 07/06/19at 03:21; Start 07/06/19 at 03:30; Stop 07/06/19 at 03:59; Status DC Sodium Bicarbonate 50 meq/Sodium Chloride 1,050 ml @ 75 mls/hr Q14H IV Last administered on 07/10/19at 21:10; Start 07/06/19 at 07:30; Stop 07/11/19 at 10:28; Status DC Calcium Gluconate 2000 mg/Sodium Chloride 120 ml @ 220 mls/hr 1X ONCE IV Last administered on 07/06/19at 09:05; Start 07/06/19 at 07:30; Stop 07/06/19 at 08:02; Status DC Lidocaine HCl (Xylocaine-Mpf 1% 2ml Vial) 2 ml STK-MED ONCE .ROUTE ; Start 07/06/19 at 08:47; Stop 07/06/19 at 08:47; Status DC Meropenem 500 mg/ Sodium Chloride 50 ml @ 100 mls/hr Q12HR IV Last administered on 07/11/19at 21:01; Start 07/06/19 at 18:00; Stop 07/12/19 at 07:58; Status DC Lidocaine HCl (Buffered Lidocaine 1%) 3 ml STK-MED ONCE .ROUTE ; Start 07/06/19 at 09:46; Stop 07/06/19 at 09:46; Status DC Lidocaine HCl (Buffered Lidocaine 1%) 6 ml 1X ONCE INJ Last administered on 07/06/19at 10:26; Start 07/06/19 at 10:15; Stop 07/06/19 at 10:16; Status DC Info (Tpn Per Pharmacy) 1 each PRN DAILY PRN MC SEE COMMENTS Last administered on 08/14/19at 13:34; Start 07/06/19 at 12:00 Sodium Chloride 1,000 ml @ 1,000 mls/hr Q1H PRN IV hypotension; Start 07/06/19 at 12:07; Stop 07/06/19 at 18:06; Status DC Diphenhydramine HCl (Benadryl) 25 mg 1X PRN PRN IV ITCHING; Start 07/06/19 at 12:15; Stop 07/07/19 at 12:14; Status DC Diphenhydramine HCl (Benadryl) 25 mg 1X PRN PRN IV ITCHING; Start 07/06/19 at 12:15; Stop 07/07/19 at 12:14; Status DC Sodium Chloride 1,000 ml @ 400 mls/hr Q2H30M PRN IV PATENCY; Start 07/06/19 at 12:07; Stop 07/07/19 at 00:06; Status DC Info (PHARMACY MONITORING -- do not chart) 1 each PRN DAILY PRN MC SEE COMMENTS; Start 07/06/19 at 12:15; Stop 07/08/19 at 08:13; Status DC Sodium Chloride 90 meq/Calcium Gluconate 10 meq/ Multivitamins 10 ml/Chromium/ Copper/Manganese/ Seleni/Zn 1 ml/ Total Parenteral Nutrition/Amino Acids/Dextrose/ Fat Emulsion Intravenous 55.005 ml @ 2.292 mls/hr TPN CONT IV ; Start 07/06/19 at 22:00; Stop 07/06/19 at 12:33; Status DC Info (Tpn Per Pharmacy) 1 each PRN DAILY PRN MC SEE COMMENTS; Start 07/06/19 at 12:30; Status UNV Sodium Chloride 90 meq/Calcium Gluconate 10 meq/ Multivitamins 10 ml/Chromium/ Copper/Manganese/ Seleni/Zn 0.5 ml/ Total Parenteral Nutrition/Amino Acids/Dextrose/ Fat Emulsion Intravenous 1,512 ml @ 63 mls/hr TPN CONT IV Last administered on 07/06/19at 22:06; Start 07/06/19 at 22:00; Stop 07/07/19 at 21:59; Status DC Calcium Carbonate/ Glycine (Tums) 500 mg PRN AFTMEALHC PRN PO INDIGESTION; Start 07/06/19 at 17:45 Calcium Gluconate (Calcium Gluconate) 2,000 mg 1X ONCE IVP Last administered on 07/07/19at 02:19; Start 07/07/19 at 02:15; Stop 07/07/19 at 02:16; Status DC Calcium Chloride 3000 mg/Sodium Chloride 1,030 ml @ 50 mls/hr [id number] IV Last administered on 07/09/19at 02:17; Start 07/07/19 at 08:00; Stop 07/09/19 at 15:23; Status DC Lorazepam (Ativan Inj) 1 mg PRN Q4HRS PRN IVP ANXIETY / AGITATION, 2nd choic Last administered on 08/05/19at 03:51; Start 07/07/19 at 09:00; Stop 08/05/19 at 09:19; Status DC Sodium Chloride 1,000 ml @ 1,000 mls/hr Q1H PRN IV hypotension; Start 07/07/19 at 08:56; Stop 07/07/19 at 14:55; Status DC Albumin Human 200 ml @ 200 mls/hr 1X PRN PRN IV Hypotension; Start 07/07/19 at 09:00; Stop 07/07/19 at 14:59; Status DC Diphenhydramine HCl (Benadryl) 25 mg 1X PRN PRN IV ITCHING; Start 07/07/19 at 09:00; Stop 07/08/19 at 08:59; Status DC Diphenhydramine HCl (Benadryl) 25 mg 1X PRN PRN IV ITCHING; Start 07/07/19 at 09:00; Stop 07/08/19 at 08:59; Status DC Sodium Chloride 1,000 ml @ 400 mls/hr Q2H30M PRN IV PATENCY; Start 07/07/19 at 08:56; Stop 07/07/19 at 20:55; Status DC Info (PHARMACY MONITORING -- do not chart) 1 each PRN DAILY PRN MC SEE COMMENTS; Start 07/07/19 at 09:00; Status UNV Info (PHARMACY MONITORING -- do not chart) 1 each PRN DAILY PRN MC SEE COMMENTS; Start 07/07/19 at 09:00; Stop 07/08/19 at 08:13; Status DC Digoxin (Lanoxin) 500 mcg 1X ONCE IV Last administered on 07/07/19at 10:04; Start 07/07/19 at 10:00; Stop 07/07/19 at 10:01; Status DC Digoxin (Lanoxin) 125 mcg 1X ONCE IV Last administered on 07/07/19at 17:10; Start 07/07/19 at 18:00; Stop 07/07/19 at 18:01; Status DC Magnesium Sulfate 100 ml @ 25 mls/hr 1X ONCE IV Last administered on 07/07/19at 12:48; Start 07/07/19 at 13:00; Stop 07/07/19 at 16:59; Status DC Sodium Chloride 90 meq/Magnesium Sulfate 10 meq/ Calcium Gluconate 20 meq/ Multivitamins 10 ml/Chromium/ Copper/Manganese/ Seleni/Zn 0.5 ml/ Total Parenteral Nutrition/Amino Acids/Dextrose/ Fat Emulsion Intravenous 1,512 ml @ 63 mls/hr TPN CONT IV Last administered on 07/07/19at 22:25; Start 07/07/19 at 22:00; Stop 07/08/19 at 21:59; Status DC Sodium Chloride 1,000 ml @ 1,000 mls/hr Q1H PRN IV hypotension; Start 07/08/19 at 08:05; Stop 07/08/19 at 14:04; Status DC Albumin Human 200 ml @ 200 mls/hr 1X ONCE IV Last administered on 07/08/19at 08:57; Start 07/08/19 at 08:15; Stop 07/08/19 at 09:14; Status DC Diphenhydramine HCl (Benadryl) 25 mg 1X PRN PRN IV ITCHING; Start 07/08/19 at 08:15; Stop 07/09/19 at 08:14; Status DC Diphenhydramine HCl (Benadryl) 25 mg 1X PRN PRN IV ITCHING; Start 07/08/19 at 08:15; Stop 07/09/19 at 08:14; Status DC Sodium Chloride 1,000 ml @ 400 mls/hr Q2H30M PRN IV PATENCY; Start 07/08/19 at 08:05; Stop 07/08/19 at 20:04; Status DC Info (PHARMACY MONITORING -- do not chart) 1 each PRN DAILY PRN MC SEE COMMENT S; Start 07/08/19 at 08:15; Stop 07/12/19 at 07:57; Status DC Sodium Chloride 90 meq/Potassium Chloride 15 meq/ Potassium Phosphate 10 mmol/ Magnesium Sulfate 10 meq/Calcium Gluconate 20 meq/ Multivitamins 10 ml/Chromium/ Copper/Manganese/ Seleni/Zn 0.5 ml/ Total Parenteral Nutrition/Amino Acids/Dextrose/ Fat Emulsion Intravenous 1,512 ml @ 63 mls/hr TPN CONT IV Last administered on 07/08/19at 21:01; Start 07/08/19 at 22:00; Stop 07/09/19 at 21:59; Status DC Potassium Chloride/Water 100 ml @ 100 mls/hr 1X ONCE IV Last administered on 07/08/19at 14:09; Start 07/08/19 at 14:00; Stop 07/08/19 at 14:59; Status DC Benzocaine (Hurricaine One) 1 spray 1X ONCE MM Last administered on 07/08/19at 16:38; Start 07/08/19 at 14:30; Stop 07/08/19 at 14:31; Status DC Lidocaine HCl (Glydo (Lidocaine) Jelly) 1 ramu 1X ONCE MM Last administered on 07/08/19at 16:38; Start 07/08/19 at 14:30; Stop 07/08/19 at 14:31; Status DC Linezolid/Dextrose 300 ml @ 300 mls/hr Q12HR IV Last administered on 07/14/19at 21:04; Start 07/08/19 at 20:00; Stop 07/15/19 at 07:50; Status DC Acetaminophen (Tylenol) 650 mg PRN Q6HRS PRN PO MILD PAIN / TEMP; Start at 03:30; Stop 07/09/19 at 03:36; Status DC Acetaminophen (Tylenol) 650 mg PRN Q6HRS PRN PEG MILD PAIN / TEMP Last admin istered on 08/04/19at 19:56; Start 07/09/19 at 03:36 Sodium Chloride 1,000 ml @ 1,000 mls/hr Q1H PRN IV hypotension; Start 07/09/19 at 07:50; Stop 07/09/19 at 13:49; Status DC Albumin Human 200 ml @ 200 mls/hr 1X PRN PRN IV Hypotension; Start 07/09/19 at 08:00; Stop 07/09/19 at 13:59; Status DC Sodium Chloride (Normal Saline Flush) 10 ml 1X PRN PRN IV AP catheter pack; Start 07/09/19 at 08:00; Stop 07/10/19 at 07:59; Status DC Sodium Chloride (Normal Saline Flush) 10 ml 1X PRN PRN IV USED CAR LOT PORTER catheter pack; Start 07/09/19 at 08:00; Stop 07/10/19 at 07:59; Status DC Sodium Chloride 1,000 ml @ 400 mls/hr Q2H30M PRN IV PATENCY; Start 07/09/19 at 07:50; Stop 07/09/19 at 19:49; Status DC Info (PHARMACY MONITORING -- do not chart) 1 each PRN DAILY PRN MC SEE COMMENTS; Start 07/09/19 at 08:00; Status UNV Info (PHARMACY MONITORING -- do not chart) 1 each PRN DAILY PRN MC SEE COMMENTS; Start 07/09/19 at 08:00; Stop 07/11/19 at 08:25; Status DC Sodium Chloride 90 meq/Potassium Chloride 15 meq/ Potassium Phosphate 10 mmol/ Magnesium Sulfate 10 meq/Calcium Gluconate 20 meq/ Multivitamins 10 ml/Chromium/ Copper/Manganese/ Seleni/Zn 0.5 ml/ Total Parenteral Nutrition/Amino Acids/Dextrose/ Fat Emulsion Intravenous 1,512 ml @ 63 mls/hr TPN CONT IV Last administered on 07/09/19at 20:57; Start 07/09/19 at 22:00; Stop 07/10/19 at 21:59; Status DC Sodium Chloride 90 meq/Potassium Chloride 15 meq/ Potassium Phosphate 15 mmol/ Magnesium Sulfate 10 meq/Calcium Gluconate 20 meq/ Multivitamins 10 ml/Chromium/ Copper/Manganese/ Seleni/Zn 0.5 ml/ Total Parenteral Nutrition/Amino Acids/Dextrose/ Fat Emulsion Intravenous 1,512 ml @ 63 mls/hr TPN CONT IV ; Start 07/10/19 at 22:00; Stop 07/10/19 at 14:16; Status DC Sodium Chloride 90 meq/Potassium Chloride 15 meq/ Potassium Phosphate 15 mmol/ Magnesium Sulfate 10 meq/Calcium Gluconate 20 meq/ Multivitamins 10 ml/Chromium/ Copper/Manganese/ Seleni/Zn 0.5 ml/ Total Parenteral Nutrition/Amino Acids/Dextrose/ Fat Emulsion Intravenous 1,200 ml @ 50 mls/hr TPN CONT IV ; Start 07/10/19 at 22:00; Stop 07/10/19 at 14:17; Status DC Sodium Chloride 90 meq/Potassium Chloride 15 meq/ Potassium Phosphate 10 mmol/ Magnesium Sulfate 10 meq/Calcium Gluconate 20 meq/ Multivitamins 10 ml/Chromium/ Copper/Manganese/ Seleni/Zn 0.5 ml/ Total Parenteral Nutrition/Amino Acids/Dextrose/ Fat Emulsion Intravenous 1,200 ml @ 50 mls/hr TPN CONT IV Last administered on 07/10/19at 23:29; Start 07/10/19 at 22:00; Stop 07/11/19 at 21:59; Status DC Sodium Chloride 1,000 ml @ 1,000 mls/hr Q1H PRN IV hypotension; Start 07/11/19 at 07:28; Stop 07/11/19 at 13:27; Status DC Albumin Human 200 ml @ 200 mls/hr 1X ONCE IV Last administered on 07/11/19at 08:51; Start 07/11/19 at 07:30; Stop 07/11/19 at 08:29; Status DC Diphenhydramine HCl (Benadryl) 25 mg 1X PRN PRN IV ITCHING; Start 07/11/19 at 07:30; Stop 07/12/19 at 07:29; Status DC Diphenhydramine HCl (Benadryl) 25 mg 1X PRN PRN IV ITCHING; Start 07/11/19 at 07:30; Stop 07/12/19 at 07:29; Status DC Sodium Chloride 1,000 ml @ 400 mls/hr Q2H30M PRN IV PATENCY; Start 07/11/19 at 07:28; Stop 07/11/19 at 19:27; Status DC Info (PHARMACY MONITORING -- do not chart) 1 each PRN DAILY PRN MC SEE COMMENTS; Start 07/11/19 at 07:30; Stop 07/22/19 at 13:01; Status DC Metronidazole 100 ml @ 100 mls/hr Q6HRS IV Last administered on 07/27/19at 06:26; Start 07/11/19 at 08:30; Stop 07/27/19 at 09:58; Status DC Micafungin Sodium 100 mg/Dextrose 100 ml @ 100 mls/hr Q24H IV Last administered on 08/15/19at 08:09; Start 07/11/19 at 09:00 Propofol 0 ml @ As Directed STK-MED ONCE IV ; Start 07/11/19 at 07:53; Stop 07/11/19 at 07:53; Status DC Etomidate (Amidate) 20 mg STK-MED ONCE IV ; Start 07/11/19 at 07:53; Stop 07/11/19 at 07:54; Status DC Midazolam HCl (Versed) 5 mg STK-MED ONCE .ROUTE ; Start 07/11/19 at 07:57; Stop 07/11/19 at 07:57; Status DC Fentanyl Citrate 30 ml @ 0 mls/hr CONT PRN IV SEE PROTOCOL Last administered on 08/05/19at 06:12; Start 07/11/19 at 08:15; Stop 08/05/19 at 09:19; Status DC Artificial Tears (Artificial Tears) 1 drop PRN Q1HR PRN OU DRY EYE, 1st choice; Start 07/11/19 at 08:15 Midazolam HCl 50 mg/Sodium Chloride 50 ml @ 0 mls/hr CONT PRN IV SEE PROTOCOL Last administered on 07/14/19at 22:39; Start 07/11/19 at 08:15; Stop 07/16/19 at 15:59; Status DC Etomidate (Amidate) 8 mg 1X ONCE IV Last administered on 07/11/19at 08:33; Start 07/11/19 at 08:30; Stop 07/11/19 at 08:31; Status DC Succinylcholine Chloride (Anectine) 120 mg 1X ONCE IV Last administered on 07/11/19at 08:34; Start 07/11/19 at 08:30; Stop 07/11/19 at 08:31; Status DC Midazolam HCl (Versed) 5 mg 1X ONCE IV ; Start 07/11/19 at 08:30; Stop 07/11/19 at 08:31; Status DC Potassium Chloride 15 meq/ Bicarbonate Dialysis Soln w/ out KCl 5,007.5 ml @ 1,000 mls/ hr Q5H1M IV Last administered on 07/12/19at 11:11; Start 07/11/19 at 12:00; Stop 07/12/19 at 11:15; Status DC Potassium Chloride 15 meq/ Bicarbonate Dialysis Soln w/ out KCl 5,007.5 ml @ 1,000 mls/ hr Q5H1M IV Last administered on 07/12/19at 11:12; Start 07/11/19 at 12:00; Stop 07/12/19 at 11:17; Status DC Potassium Chloride 15 meq/ Bicarbonate Dialysis Soln w/ out KCl 5,007.5 ml @ 1,000 mls/ hr Q5H1M IV Last administered on 07/12/19at 11:11; Start 07/11/19 at 12:00; Stop 07/12/19 at 11:19; Status DC Sodium Chloride 90 meq/Potassium Chloride 15 meq/ Potassium Phosphate 10 mmol/ Magnesium Sulfate 10 meq/Calcium Gluconate 20 meq/ Multivitamins 10 ml/Chromium/ Copper/Manganese/ Seleni/Zn 0.5 ml/ Total Parenteral Nutrition/Amino Acids/Dextrose/ Fat Emulsion Intravenous 1,400 ml @ 58.333 mls/ hr TPN CONT IV Last administered on 07/11/19at 21:42; Start 07/11/19 at 22:00; Stop 07/12/19 at 21:59; Status DC Heparin Sodium (Porcine) (Heparin Sodium) 5,000 unit Q8HRS SQ Last administered on 07/16/19at 05:55; Start 07/11/19 at 15:00; Stop 07/16/19 at 13:28; Status DC Meropenem 500 mg/ Sodium Chloride 50 ml @ 100 mls/hr Q6HRS IV Last administered on 07/13/19at 06:00; Start 07/12/19 at 09:00; Stop 07/13/19 at 07:29; Status DC Potassium Phosphate 20 mmol/ Sodium Chloride 106.6667 ml @ 51.667 m... 1X ONCE IV Last administered on 07/12/19at 11:22; Start 07/12/19 at 10:15; Stop 07/12/19 at 12:18; Status DC Acetaminophen (Tylenol Supp) 650 mg PRN Q6HRS PRN HI MILD PAIN / TEMP > 100.3'F Last administered on 08/15/19at 00:32; Start 07/12/19 at 10:30 Potassium Chloride/Water 100 ml @ 100 mls/hr Q1H IV Last administered on 07/12/19at 12:12; Start 07/12/19 at 11:00; Stop 07/12/19 at 12:59; Status DC Potassium Chloride 20 meq/ Bicarbonate Dialysis Soln w/ out KCl 5,010 ml @ 1,000 mls/hr Q5H1M IV Last administered on 07/13/19at 08:48; Start 07/12/19 at 12:00; Stop 07/13/19 at 13:03; Status DC Potassium Chloride 20 meq/ Bicarbonate Dialysis Soln w/ out KCl 5,010 ml @ 1,000 mls/hr Q5H1M IV Last administered on 07/17/19at 14:52; Start 07/12/19 at 11:30; Stop 07/17/19 at 19:59; Status DC Potassium Chloride 20 meq/ Bicarbonate Dialysis Soln w/ out KCl 5,010 ml @ 1,000 mls/hr Q5H1M IV Last administered on 07/17/19at 14:53; Start 07/12/19 at 11:30; Stop 07/17/19 at 19:59; Status DC Sodium Chloride 90 meq/Potassium Chloride 15 meq/ Potassium Phosphate 15 mmol/ Magnesium Sulfate 10 meq/Calcium Gluconate 15 meq/ Multivitamins 10 ml/Chromium/ Copper/Manganese/ Seleni/Zn 0.5 ml/ Total Parenteral Nutrition/Amino Acids/Dextrose/ Fat Emulsion Intravenous 1,400 ml @ 58.333 mls/ hr TPN CONT IV Last administered on 07/12/19at 22:17; Start 07/12/19 at 22:00; Stop 07/13/19 at 21:59; Status DC Cefepime HCl (Maxipime) 2 gm Q12HR IVP Last administered on 07/26/19at 20:56; Start 07/13/19 at 09:00; Stop 07/27/19 at 09:58; Status DC Daptomycin 500 mg/ Sodium Chloride 50 ml @ 100 mls/hr Q48H IV Last administered on 07/29/19at 09:57; Start 07/13/19 at 08:30; Stop 07/29/19 at 10:07; Status DC Lidocaine HCl (Buffered Lidocaine 1%) 3 ml 1X ONCE INJ Last administered on 07/13/19at 10:27; Start 07/13/19 at 10:30; Stop 07/13/19 at 10:31; Status DC Potassium Phosphate 20 mmol/ Sodium Chloride 106.6667 ml @ 51.667 m... 1X ONCE IV Last administered on 07/13/19at 12:51; Start 07/13/19 at 13:00; Stop 07/13/19 at 15:03; Status DC Sodium Chloride 90 meq/Potassium Chloride 15 meq/ Potassium Phosphate 18 mmol/ Magnesium Sulfate 8 meq/Calcium Gluconate 15 meq/ Multivitamins 10 ml/Chromium/ Copper/Manganese/ Seleni/Zn 0.5 ml/ Total Parenteral Nutrition/Amino Acids/Dextrose/ Fat Emulsion Intravenous 1,400 ml @ 58.333 mls/ hr TPN CONT IV Last administered on 07/13/19at 22:16; Start 07/13/19 at 22:00; Stop 07/14/19 at 21:59; Status DC Potassium Chloride 20 meq/ Bicarbonate Dialysis Soln w/ out KCl 5,010 ml @ 1,000 mls/hr Q5H1M IV Last administered on 07/17/19at 14:54; Start 07/13/19 at 1 6:00; Stop 07/17/19 at 19:59; Status DC Multi-Ingred Cream/Lotion/Oil/ Oint (Artificial Tears Eye Ointment) 1 ramu PRN Q1HR PRN OU DRY EYE, 2nd choice Last administered on 08/01/19at 08:19; Start 07/13/19 at 17:30 Sodium Chloride 90 meq/Potassium Chloride 15 meq/ Potassium Phosphate 18 mmol/ Magnesium Sulfate 8 meq/Calcium Gluconate 15 meq/ Multivitamins 10 ml/Chromium/ Copper/Manganese/ Seleni/Zn 0.5 ml/ Total Parenteral Nutrition/Amino Acids/Dextrose/ Fat Emulsion Intravenous 1,400 ml @ 58.333 mls/ hr TPN CONT IV Last administered on 07/14/19at 22:00; Start 07/14/19 at 22:00; Stop 07/15/19 at 21:59; Status DC Albumin Human 500 ml @ 125 mls/hr 1X ONCE IV ; Start 07/14/19 at 14:15; Stop 07/14/19 at 18:14; Status DC Sodium Chloride 90 meq/Potassium Chloride 15 meq/ Potassium Phosphate 18 mmol/ Magnesium Sulfate 8 meq/Calcium Gluconate 15 meq/ Multivitamins 10 ml/Chromium/ Copper/Manganese/ Seleni/Zn 0.5 ml/ Insulin Human Regular 10 unit/ Total Parenteral Nutrition/Amino Acids/Dextrose/ Fat Emulsion Intravenous 1,400 ml @ 58.333 mls/ hr TPN CONT IV Last administered on 07/15/19at 21:43; Start 07/15/19 at 22:00; Stop 07/16/19 at 21:59; Status DC Lidocaine HCl (Buffered Lidocaine 1%) 3 ml STK-MED ONCE .ROUTE ; Start 07/13/19 at 10:00; Stop 07/15/19 at 13:57; Status DC Midazolam HCl 100 mg/Sodium Chloride 100 ml @ 7 mls/hr CONT PRN IV SEE PROTOCOL Last administered on 07/27/19at 15:35; Start 07/16/19 at 16:00 Sodium Chloride 90 meq/Potassium Chloride 15 meq/ Potassium Phosphate 18 mmol/ Magnesium Sulfate 8 meq/Calcium Gluconate 15 meq/ Multivitamins 10 ml/Chromium/ Copper/Manganese/ Seleni/Zn 0.5 ml/ Insulin Human Regular 15 unit/ Total Parenteral Nutrition/Amino Acids/Dextrose/ Fat Emulsion Intravenous 1,400 ml @ 58.333 mls/ hr TPN CONT IV Last administered on 07/16/19at 20:34; Start 07/16/19 at 22:00; Stop 07/17/19 at 21:59; Status DC Info (Icu Electrolyte Protocol) 1 ea CONT PRN PRN MC PER PROTOCOL; Start 07/17/19 at 13:15 Sodium Chloride 90 meq/Potassium Chloride 15 meq/ Potassium Phosphate 18 mmol/ M agnesium Sulfate 8 meq/Calcium Gluconate 15 meq/ Multivitamins 10 ml/Chromium/ Copper/Manganese/ Seleni/Zn 0.5 ml/ Insulin Human Regular 15 unit/ Total Parenteral Nutrition/Amino Acids/Dextrose/ Fat Emulsion Intravenous 1,400 ml @ 58.333 mls/ hr TPN CONT IV Last administered on 07/17/19at 22:05; Start 07/17/19 at 22:00; Stop 07/18/19 at 21:59; Status DC Potassium Chloride 15 meq/ Bicarbonate Dialysis Soln w/ out KCl 5,007.5 ml @ 1,000 mls/ hr Q5H1M IV Last administered on 07/20/19at 18:14; Start 07/17/19 at 20:00; Stop 07/21/19 at 13:08; Status DC Potassium Chloride 15 meq/ Bicarbonate Dialysis Soln w/ out KCl 5,007.5 ml @ 1,000 mls/ hr Q5H1M IV Last administered on 07/20/19at 18:14; Start 07/17/19 at 20:00; Stop 07/21/19 at 13:08; Status DC Potassium Chloride 15 meq/ Bicarbonate Dialysis Soln w/ out KCl 5,007.5 ml @ 1,000 mls/ hr Q5H1M IV Last administered on 07/20/19at 18:14; Start 07/17/19 at 20:00; Stop 07/21/19 at 13:08; Status DC Iohexol (Omnipaque 240 Mg/ml) 30 ml 1X ONCE PO Last administered on 07/18/19at 11:30; Start 07/18/19 at 11:30; Stop 07/18/19 at 11:33; Status DC Info (CONTRAST GIVEN -- Rx MONITORING) 1 each PRN DAILY PRN MC SEE COMMENTS; Start 07/18/19 at 11:45; Stop 07/20/19 at 11:44; Status DC Sodium Chloride 90 meq/Potassium Chloride 15 meq/ Potassium Phosphate 18 mmol/ Magnesium Sulfate 8 meq/Calcium Gluconate 15 meq/ Multivitamins 10 ml/Chromium/ Copper/Manganese/ Seleni/Zn 0.5 ml/ Insulin Human Regular 15 unit/ Total Parenteral Nutrition/Amino Acids/Dextrose/ Fat Emulsion Intravenous 1,400 ml @ 58.333 mls/ hr TPN CONT IV Last administered on 07/18/19at 21:47; Start 07/18/19 at 22:00; Stop 07/19/19 at 21:59; Status DC Sodium Chloride 90 meq/Potassium Chloride 15 meq/ Potassium Phosphate 18 mmol/ Magnesium Sulfate 8 meq/Calcium Gluconate 15 meq/ Multivitamins 10 ml/Chromium/ Copper/Manganese/ Seleni/Zn 0.5 ml/ Insulin Human Regular 20 unit/ Total Parenteral Nutrition/Amino Acids/Dextrose/ Fat Emulsion Intravenous 1,400 ml @ 58.333 mls/ hr TPN CONT IV Last administered on 07/19/19at 21:36; Start 07/19/19 at 22:00; Stop 07/20/19 at 21:59; Status DC Alteplase, Recombinant (Cathflo For Central Catheter Clearance) 1 mg 1X ONCE INT CAT Last administered on 07/19/19at 20:03; Start 07/19/19 at 19:30; Stop 07/19/19 at 19:46; Status DC Alteplase, Recombinant (Cathflo For Central Catheter Clearance) 1 mg 1X ONCE INT CAT Last administered on 07/19/19at 22:05; Start 07/19/19 at 22:00; Stop 07/19/19 at 22:01; Status DC Sodium Chloride 90 meq/Potassium Chloride 15 meq/ Potassium Phosphate 18 mmol/ Magnesium Sulfate 8 meq/Calcium Gluconate 15 meq/ Multivitamins 10 ml/Chromium/ Copper/Manganese/ Seleni/Zn 0.5 ml/ Insulin Human Regular 20 unit/ Total Parenteral Nutrition/Amino Acids/Dextrose/ Fat Emulsion Intravenous 1,400 ml @ 58.333 mls/ hr TPN CONT IV Last administered on 07/20/19at 21:30; Start 07/20/19 at 22:00; Stop 07/21/19 at 21:59; Status DC Dexmedetomidine HCl 400 mcg/ Sodium Chloride 100 ml @ 0 mls/hr CONT PRN IV ANXIETY / AGITATION Last administered on 08/15/19at 10:18; Start 07/21/19 at 08:15 Sodium Chloride 500 ml @ 500 mls/hr 1X PRN PRN IV ELEVATED BP, SEE COMMENTS; Start 07/21/19 at 08:15 Atropine Sulfate (ATROPINE 0.5mg SYRINGE) 0.5 mg PRN Q5MIN PRN IV SEE COMMENTS; Start 07/21/19 at 08:15 Furosemide (Lasix) 20 mg 1X ONCE IVP Last administered on 07/21/19at 08:19; Start 07/21/19 at 08:15; Stop 07/21/19 at 08:16; Status DC Lidocaine HCl (Buffered Lidocaine 1%) 3 ml STK-MED ONCE .ROUTE ; Start 07/21/19 at 08:39; Stop 07/21/19 at 08:39; Status DC Lidocaine HCl (Buffered Lidocaine 1%) 6 ml 1X ONCE INJ Last administered on 07/21/19at 09:05; Start 07/21/19 at 09:00; Stop 07/21/19 at 09:06; Status DC Sodium Chloride 90 meq/Potassium Chloride 15 meq/ Potassium Phosphate 18 mmol/ Magnesium Sulfate 8 meq/Calcium Gluconate 15 meq/ Multivitamins 10 ml/Chromium/ Copper/Manganese/ Seleni/Zn 0.5 ml/ Insulin Human Regular 20 unit/ Total Parenteral Nutrition/Amino Acids/Dextrose/ Fat Emulsion Intravenous 1,400 ml @ 58.333 mls/ hr TPN CONT IV Last administered on 07/21/19at 22:45; Start 07/21/19 at 22:00; Stop 07/22/19 at 21:59; Status DC Sodium Chloride 1,000 ml @ 1,000 mls/hr Q1H PRN IV hypotension; Start 07/22/19 at 07:30; Stop 07/22/19 at 13:29; Status DC Albumin Human 200 ml @ 200 mls/hr 1X PRN PRN IV Hypotension Last administered on 07/22/19at 09:36; Start 07/22/19 at 07:30; Stop 07/22/19 at 13:29; Status DC Sodium Chloride (Normal Saline Flush) 10 ml 1X PRN PRN IV AP catheter pack; Start 07/22/19 at 07:30; Stop 07/22/19 at 21:29; Status DC Sodium Chloride (Normal Saline Flush) 10 ml 1X PRN PRN IV USED CAR LOT PORTER catheter pack; Start 07/22/19 at 07:30; Stop 07/23/19 at 07:29; Status DC Sodium Chloride 1,000 ml @ 400 mls/hr Q2H30M PRN IV PATENCY; Start 07/22/19 at 07:30; Stop 07/22/19 at 19:29; Status DC Info (PHARMACY MONITORING -- do not chart) 1 each PRN DAILY PRN MC SEE COMMENTS; Start 07/22/19 at 07:30; Stop 07/22/19 at 13:02; Status DC Info (PHARMACY MONITORING -- do not chart) 1 each PRN DAILY PRN MC SEE COMMENTS; Start 07/22/19 at 07:30; Stop 07/24/19 at 12:45; Status DC Sodium Chloride 90 meq/Potassium Chloride 15 meq/ Potassium Phosphate 10 mmol/ Magnesium Sulfate 8 meq/Calcium Gluconate 15 meq/ Multivitamins 10 ml/Chromium/ Copper/Manganese/ Seleni/Zn 0.5 ml/ Insulin Human Regular 25 unit/ Total Parenteral Nutrition/Amino Acids/Dextrose/ Fat Emulsion Intravenous 1,400 ml @ 58.333 mls/ hr TPN CONT IV Last administered on 07/22/19at 22:19; Start 07/22/19 at 22:00; Stop 07/23/19 at 21:59; Status DC Heparin Sodium (Porcine) (Heparin Sodium) 5,000 unit Q12HR SQ Last administered on 08/14/19at 08:59; Start 07/22/19 at 21:00; Stop 08/14/19 at 10:05; Status DC Ondansetron HCl (Zofran) 4 mg PRN Q6HRS PRN IV NAUSEA/VOMITING; Start 07/25/19 at 07:00; Stop 07/26/19 at 06:59; Status DC Fentanyl Citrate (Fentanyl 2ml Vial) 25 mcg PRN Q5MIN PRN IV MILD PAIN 1-3; Start 07/25/19 at 07:00; Stop 07/26/19 at 06:59; Status DC Fentanyl Citrate (Fentanyl 2ml Vial) 50 mcg PRN Q5MIN PRN IV MODERATE TO SEVERE PAIN; Start 07/25/19 at 07:00; Stop 07/26/19 at 06:59; Status DC Ringer's Solution 1,000 ml @ 30 mls/hr Q24H IV ; Start 07/25/19 at 07:00; Stop 07/25/19 at 18:59; Status DC Lidocaine HCl (Xylocaine-Mpf 1% 2ml Vial) 2 ml PRN 1X PRN ID PRIOR TO IV START; Start 07/25/19 at 07:00; Stop 07/26/19 at 06:59; Status DC Prochlorperazine Edisylate (Compazine) 5 mg PACU PRN PRN IV NAUSEA, MRX1; Start 07/25/19 at 07:00; Stop 07/26/19 at 06:59; Status DC Sodium Chloride 1,000 ml @ 1,000 mls/hr Q1H PRN IV hypotension; Start 07/23/19 at 09:10; Stop 07/23/19 at 15:09; Status DC Albumin Human 200 ml @ 200 mls/hr 1X PRN PRN IV Hypotension Last administered on 07/23/19at 10:10; Start 07/23/19 at 09:15; Stop 07/23/19 at 15:14; Status DC Sodium Chloride 1,000 ml @ 400 mls/hr Q2H30M PRN IV PATENCY; Start 07/23/19 at 09:10; Stop 07/23/19 at 21:09; Status DC Info (PHARMACY MONITORING -- do not chart) 1 each PRN DAILY PRN MC SEE COMMENTS; Start 07/23/19 at 09:15; Stop 07/24/19 at 12:45; Status DC Info (PHARMACY MONITORING -- do not chart) 1 each PRN DAILY PRN MC SEE COMMENTS; Start 07/23/19 at 09:15; Stop 07/24/19 at 12:45; Status DC Sodium Chloride 90 meq/Potassium Chloride 15 meq/ Potassium Phosphate 10 mmol/ Magnesium Sulfate 8 meq/Calcium Gluconate 15 meq/ Multivitamins 10 ml/Chromium/ Copper/Manganese/ Seleni/Zn 0.5 ml/ Insulin Human Regular 25 unit/ Total Parenteral Nutrition/Amino Acids/Dextrose/ Fat Emulsion Intravenous 1,400 ml @ 58.333 mls/ hr TPN CONT IV Last administered on 07/23/19at 22:10; Start 07/23/19 at 22:00; Stop 07/24/19 at 21:59; Status DC Magnesium Sulfate 50 ml @ 25 mls/hr PRN DAILY PRN IV for Mag < 1.7 on am labs Last administered on 08/08/19at 17:27; Start 07/24/19 at 09:15 Sodium Chloride 90 meq/Potassium Chloride 15 meq/ Potassium Phosphate 10 mmol/ Magnesium Sulfate 8 meq/Calcium Gluconate 15 meq/ Multivitamins 10 ml/Chromium/ Copper/Manganese/ Seleni/Zn 0.5 ml/ Insulin Human Regular 25 unit/ Total Parenteral Nutrition/Amino Acids/Dextrose/ Fat Emulsion Intravenous 1,400 ml @ 58.333 mls/ hr TPN CONT IV Last administered on 07/24/19at 21:20; Start 07/24/19 at 22:00; Stop 07/25/19 at 21:59; Status DC Sodium Chloride 1,000 ml @ 1,000 mls/hr Q1H PRN IV hypotension; Start 07/24/19 at 12:23; Stop 07/24/19 at 18:22; Status DC Albumin Human 200 ml @ 200 mls/hr 1X ONCE IV Last administered on 07/24/19at 13:34; Start 07/24/19 at 12:30; Stop 07/24/19 at 13:29; Status DC Diphenhydramine HCl (Benadryl) 25 mg 1X PRN PRN IV ITCHING; Start 07/24/19 at 12:30; Stop 07/25/19 at 12:29; Status DC Diphenhydramine HCl (Benadryl) 25 mg 1X PRN PRN IV ITCHING; Start 07/24/19 at 12:30; Stop 07/25/19 at 12:29; Status DC Info (PHARMACY MONITORING -- do not chart) 1 each PRN DAILY PRN MC SEE COMMENTS; Start 07/24/19 at 12:30; Status Cancel Bupivacaine HCl/ Epinephrine Bitart (Sensorcain-Epi 0.5%-1:[id number] Mpf) 30 ml STK-MED ONCE .ROUTE Last administered on 07/25/19at 11:44; Start 07/25/19 at 11:00; Stop 07/25/19 at 11:01; Status DC Cellulose (Surgicel Fibrillar 1x2) 1 each STK-MED ONCE .ROUTE ; Start 07/25/19 at 11:00; Stop 07/25/19 at 11:01; Status DC Sodium Chloride 90 meq/Potassium Chloride 15 meq/ Potassium Phosphate 10 mmol/ Magnesium Sulfate 12 meq/Calcium Gluconate 15 meq/ Multivitamins 10 ml/Chromium/ Copper/Manganese/ Seleni/Zn 0.5 ml/ Insulin Human Regular 25 unit/ Total Parenteral Nutrition/Amino Acids/Dextrose/ Fat Emulsion Intravenous 1,400 ml @ 58.333 mls/ hr TPN CONT IV Last administered on 07/25/19at 22:24; Start 07/25/19 at 22:00; Stop 07/26/19 at 21:59; Status DC Propofol 20 ml @ As Directed STK-MED ONCE IV ; Start 07/25/19 at 11:07; Stop 07/25/19 at 11:07; Status DC Cellulose (Surgicel Hemostat 4x8) 1 each STK-MED ONCE .ROUTE Last administered on 07/25/19at 11:44; Start 07/25/19 at 11:55; Stop 07/25/19 at 11:56; Status DC Sevoflurane (Ultane) 60 ml STK-MED ONCE IH ; Start 07/25/19 at 12:46; Stop 07/25/19 at 12:46; Status DC Sodium Chloride 1,000 ml @ 1,000 mls/hr Q1H PRN IV hypotension; Start 07/25/19 at 13:51; Stop 07/25/19 at 19:50; Status DC Albumin Human 200 ml @ 200 mls/hr 1X PRN PRN IV Hypotension Last administered on 07/25/19at 14:51; Start 07/25/19 at 14:00; Stop 07/25/19 at 19:59; Status DC Diphenhydramine HCl (Benadryl) 25 mg 1X PRN PRN IV ITCHING; Start 07/25/19 at 14:00; Stop 07/26/19 at 13:59; Status DC Diphenhydramine HCl (Benadryl) 25 mg 1X PRN PRN IV ITCHING; Start 07/25/19 at 14:00; Stop 07/26/19 at 13:59; Status DC Sodium Chloride 1,000 ml @ 400 mls/hr Q2H30M PRN IV PATENCY; Start 07/25/19 at 13:51; Stop 07/26/19 at 01:50; Status DC Info (PHARMACY MONITORING -- do not chart) 1 each PRN DAILY PRN MC SEE COMMENTS; Start 07/25/19 at 14:00; Stop 07/28/19 at 08:16; Status DC Heparin Sodium (Porcine) (Hep Lock Adult) 500 unit STK-MED ONCE IVP ; Start 07/26/19 at 09:29; Stop 07/26/19 at 09:30; Status DC Sodium Chloride 1,000 ml @ 1,000 mls/hr Q1H PRN IV hypotension; Start 07/26/19 at 10:43; Stop 07/26/19 at 16:42; Status DC Sodium Chloride 1,000 ml @ 400 mls/hr Q2H30M PRN IV PATENCY; Start 07/26/19 at 10:43; Stop 07/26/19 at 22:42; Status DC Info (PHARMACY MONITORING -- do not chart) 1 each PRN DAILY PRN MC SEE COMMENTS; Start 07/26/19 at 10:45; Status UNV Info (PHARMACY MONITORING -- do not chart) 1 each PRN DAILY PRN MC SEE COMMENTS; Start 07/26/19 at 10:45; Status UNV Sodium Chloride 90 meq/Potassium Chloride 15 meq/ Magnesium Sulfate 12 meq/Calcium Gluconate 15 meq/ Multivitamins 10 ml/Chromium/ Copper/Manganese/ Seleni/Zn 0.5 ml/ Insulin Human Regular 25 unit/ Total Parenteral Nutrition/Amino Acids/Dextrose/ Fat Emulsion Intravenous 1,400 ml @ 58.333 mls/ hr TPN CONT IV Last administered on 07/26/19at 22:13; Start 07/26/19 at 22:00; Stop 07/27/19 at 21:59; Status DC Sodium Chloride 1,000 ml @ 1,000 mls/hr Q1H PRN IV hypotension; Start 07/27/19 at 07:50; Stop 07/27/19 at 13:49; Status DC Albumin Human 200 ml @ 200 mls/hr 1X ONCE IV ; Start 07/27/19 at 08:00; Stop 07/27/19 at 08:53; Status DC Diphenhydramine HCl (Benadryl) 25 mg 1X PRN PRN IV ITCHING; Start 07/27/19 at 08:00; Stop 07/28/19 at 07:59; Status DC Diphenhydramine HCl (Benadryl) 25 mg 1X PRN PRN IV ITCHING; Start 07/27/19 at 08:00; Stop 07/28/19 at 07:59; Status DC Info (PHARMACY MONITORING -- do not chart) 1 each PRN DAILY PRN MC SEE COMMENTS; Start 07/27/19 at 08:00; Stop 07/28/19 at 08:16; Status DC Albumin Human 50 ml @ 50 mls/hr 1X ONCE IV ; Start 07/27/19 at 08:53; Stop 07/27/19 at 08:56; Status DC Albumin Human 200 ml @ 50 mls/hr PRN 1X PRN IV HYPOTENSION Last administered on 08/02/19at 11:54; Start 07/27/19 at 09:00 Meropenem 500 mg/ Sodium Chloride 50 ml @ 100 mls/hr Q12H IV Last administered on 08/15/19at 09:24; Start 07/27/19 at 10:00 Sodium Chloride 90 meq/Magnesium Sulfate 12 meq/ Calcium Gluconate 15 meq/ Multivitamins 10 ml/Chromium/ Copper/Manganese/ Seleni/Zn 0.5 ml/ Insulin Human Regular 25 unit/ Total Parenteral Nutrition/Amino Acids/Dextrose/ Fat Emulsion Intravenous 1,400 ml @ 58.333 mls/ hr TPN CONT IV Last administered on 07/27/19at 21:41; Start 07/27/19 at 22:00; Stop 07/28/19 at 21:59; Status DC Sodium Chloride 1,000 ml @ 1,000 mls/hr Q1H PRN IV hypotension; Start 07/28/19 at 07:58; Stop 07/28/19 at 13:57; Status DC Albumin Human 200 ml @ 200 mls/hr 1X PRN PRN IV Hypotension Last administered on 07/28/19at 09:30; Start 07/28/19 at 08:00; Stop 07/28/19 at 13:59; Status DC Sodium Chloride 1,000 ml @ 400 mls/hr Q2H30M PRN IV PATENCY; Start 07/28/19 at 07:58; Stop 07/28/19 at 19:57; Status DC Info (PHARMACY MONITORING -- do not chart) 1 each PRN DAILY PRN MC SEE COMMENTS; Start 07/28/19 at 08:00; Status Cancel Info (PHARMACY MONITORING -- do not chart) 1 each PRN DAILY PRN MC SEE COMMENTS; Start 07/28/19 at 08:15; Status UNV Sodium Chloride 90 meq/Potassium Phosphate 5 mmol/ Magnesium Sulfate 12 meq/Calcium Gluconate 15 meq/ Multivitamins 10 ml/Chromium/ Copper/Manganese/ Seleni/Zn 0.5 ml/ Insulin Human Regular 30 unit/ Total Parenteral Nutrition/Amino Acids/Dextrose/ Fat Emulsion Intravenous 1,400 ml @ 58.333 mls/ hr TPN CONT IV Last administered on 07/28/19at 22:08; Start 07/28/19 at 22:00; Stop 07/29/19 at 21:59; Status DC Linezolid/Dextrose 300 ml @ 300 mls/hr Q12HR IV Last administered on 08/08/19at 20:40; Start 07/29/19 at 11:00; Stop 08/09/19 at 08:10; Status DC Sodium Chloride 90 meq/Potassium Phosphate 15 mmol/ Magnesium Sulfate 12 meq/Calcium Gluconate 15 meq/ Multivitamins 10 ml/Chromium/ Copper/Manganese/ Seleni/Zn 0.5 ml/ Insulin Human Regular 30 unit/ Total Parenteral Nutrition/Amino Acids/Dextrose/ Fat Emulsion Intravenous 1,400 ml @ 58.333 mls/ hr TPN CONT IV Last administered on 07/29/19at 21:49; Start 07/29/19 at 22:00; Stop 07/30/19 at 21:59; Status DC Sodium Chloride 90 meq/Potassium Phosphate 15 mmol/ Magnesium Sulfate 12 meq/Calcium Gluconate 15 meq/ Multivitamins 10 ml/Chromium/ Copper/Manganese/ Seleni/Zn 0.5 ml/ Insulin Human Regular 40 unit/ Total Parenteral Nutrition/Amino Acids/Dextrose/ Fat Emulsion Intravenous 1,400 ml @ 58.333 mls/ hr TPN CONT IV Last administered on 07/30/19at 21:21; Start 07/30/19 at 22:00; Stop 07/31/19 at 21:59; Status DC Sodium Chloride 1,000 ml @ 1,000 mls/hr Q1H PRN IV hypotension; Start 07/30/19 at 13:26; Stop 07/30/19 at 19:25; Status DC Albumin Human 200 ml @ 200 mls/hr 1X PRN PRN IV Hypotension Last administered on 07/30/19at 15:00; Start 07/30/19 at 13:30; Stop 07/30/19 at 19:29; Status DC Sodium Chloride (Normal Saline Flush) 10 ml 1X PRN PRN IV AP catheter pack; Start 07/30/19 at 13:30; Stop 07/31/19 at 13:29; Status DC Sodium Chloride (Normal Saline Flush) 10 ml 1X PRN PRN IV USED CAR LOT PORTER catheter pack; Start 07/30/19 at 13:30; Stop 07/31/19 at 13:29; Status DC Sodium Chloride 1,000 ml @ 400 mls/hr Q2H30M PRN IV PATENCY; Start 07/30/19 at 13:26; Stop 07/31/19 at 01:25; Status DC Info (PHARMACY MONITORING -- do not chart) 1 each PRN DAILY PRN MC SEE COMMENTS; Start 07/30/19 at 13:30; Stop 07/30/19 at 13:33; Status DC Info (PHARMACY MONITORING -- do not chart) 1 each PRN DAILY PRN MC SEE COMMENTS; Start 07/30/19 at 13:30; Stop 07/30/19 at 13:34; Status DC Sodium Chloride 90 meq/Potassium Phosphate 19 mmol/ Magnesium Sulfate 12 meq/Calcium Gluconate 15 meq/ Multivitamins 10 ml/Chromium/ Copper/Manganese/ Seleni/Zn 0.5 ml/ Insulin Human Regular 40 unit/ Total Parenteral Nutrition/Amino Acids/Dextrose/ Fat Emulsion Intravenous 1,400 ml @ 58.333 mls/ hr TPN CONT IV Last administered on 07/31/19at 21:54; Start 07/31/19 at 22:00; Stop 08/01/19 at 21:59; Status DC Sodium Chloride 1,000 ml @ 1,000 mls/hr Q1H PRN IV hypotension; Start 08/01/19 at 09:35; Stop 08/01/19 at 15:34; Status DC Albumin Human 200 ml @ 200 mls/hr 1X PRN PRN IV Hypotension; Start 08/01/19 at 09:45; Stop 08/01/19 at 15:44; Status DC Diphenhydramine HCl (Benadryl) 25 mg 1X PRN PRN IV ITCHING; Start 08/01/19 at 09:45; Stop 08/02/19 at 09:44; Status DC Diphenhydramine HCl (Benadryl) 25 mg 1X PRN PRN IV ITCHING; Start 08/01/19 at 09:45; Stop 08/02/19 at 09:44; Status DC Sodium Chloride 1,000 ml @ 400 mls/hr Q2H30M PRN IV PATENCY; Start 08/01/19 at 09:35; Stop 08/01/19 at 21:34; Status DC Info (PHARMACY MONITORING -- do not chart) 1 each PRN DAILY PRN MC SEE COMMENTS; Start 08/01/19 at 09:45; Status Cancel Sodium Chloride 100 meq/Potassium Phosphate 19 mmol/ Magnesium Sulfate 12 meq/Calcium Gluconate 15 meq/ Multivitamins 10 ml/Chromium/ Copper/Manganese/ Seleni/Zn 0.5 ml/ Insulin Human Regular 40 unit/ Potassium Chloride 20 meq/ Total Parenteral Nutrition/Amino Acids/Dextrose/ Fat Emulsion Intravenous 1,400 ml @ 58.333 mls/ hr TPN CONT IV Last administered on 08/01/19at 22:02; Start 08/01/19 at 22:00; Stop 08/02/19 at 21:59; Status DC Furosemide (Lasix) 40 mg 1X ONCE IVP Last administered on 08/01/19at 14:39; Start 08/01/19 at 14:30; Stop 08/01/19 at 14:31; Status DC Metronidazole 100 ml @ 100 mls/hr Q8HRS IV Last administered on 08/09/19at 06:04; Start 08/02/19 at 10:00; Stop 08/09/19 at 08:10; Status DC Sodium Chloride 1,000 ml @ 1,000 mls/hr Q1H PRN IV hypotension; Start 08/02/19 at 08:00; Stop 08/02/19 at 13:59; Status DC Albumin Human 200 ml @ 200 mls/hr 1X PRN PRN IV Hypotension; Start 08/02/19 at 08:00; Stop 08/02/19 at 13:59; Status DC Sodium Chloride 1,000 ml @ 400 mls/hr Q2H30M PRN IV PATENCY; Start 08/02/19 at 08:00; Stop 08/02/19 at 19:59; Status DC Info (PHARMACY MONITORING -- do not chart) 1 each PRN DAILY PRN MC SEE COMMENTS; Start 08/02/19 at 11:30; Status UNV Info (PHARMACY MONITORING -- do not chart) 1 each PRN DAILY PRN MC SEE COMMENTS; Start 08/02/19 at 11:30; Stop 08/04/19 at 12:13; Status DC Sodium Chloride 100 meq/Potassium Phosphate 19 mmol/ Magnesium Sulfate 12 meq/Calcium Gluconate 15 meq/ Multivitamins 10 ml/Chromium/ Copper/Manganese/ Seleni/Zn 0.5 ml/ Insulin Human Regular 40 unit/ Potassium Chloride 20 meq/ Total Parenteral Nutrition/Amino Acids/Dextrose/ Fat Emulsion Intravenous 1,400 ml @ 58.333 mls/ hr TPN CONT IV Last administered on 08/02/19at 21:52; Start 08/02/19 at 22:00; Stop 08/03/19 at 21:59; Status DC Sodium Chloride (Normal Saline Flush) 10 ml QSHIFT PRN IV AFTER MEDS AND BLOOD DRAWS; Start 08/02/19 at 15:00 Sodium Chloride (Normal Saline Flush) 10 ml PRN Q5MIN PRN IV AFTER MEDS AND BLOOD DRAWS; Start 08/02/19 at 15:00 Sodium Chloride (Normal Saline Flush) 20 ml PRN Q5MIN PRN IV AFTER MEDS AND BLOOD DRAWS; Start 08/02/19 at 15:00 Sodium Chloride 100 meq/Potassium Phosphate 19 mmol/ Magnesium Sulfate 12 meq/Calcium Gluconate 15 meq/ Multivitamins 10 ml/Chromium/ Copper/Manganese/ Seleni/Zn 0.5 ml/ Insulin Human Regular 40 unit/ Potassium Chloride 20 meq/ Total Parenteral Nutrition/Amino Acids/Dextrose/ Fat Emulsion Intravenous 1,400 ml @ 58.333 mls/ hr TPN CONT IV Last administered on 08/03/19at 21:20; Start 08/03/19 at 22:00; Stop 08/04/19 at 21:59; Status DC Lidocaine HCl (Buffered Lidocaine 1%) 3 ml STK-MED ONCE .ROUTE ; Start 08/03/19 at 13:16; Stop 08/03/19 at 13:16; Status DC Lidocaine HCl (Buffered Lidocaine 1%) 6 ml 1X ONCE INJ Last administered on 08/03/19at 13:45; Start 08/03/19 at 13:30; Stop 08/03/19 at 13:31; Status DC Albumin Human 100 ml @ 100 mls/hr 1X ONCE IV Last administered on 08/03/19at 15:41; Start 08/03/19 at 15:00; Stop 08/03/19 at 15:59; Status DC Albumin Human 50 ml @ 50 mls/hr 1X ONCE IV Last administered on 08/03/19at 15:00; Start 08/03/19 at 15:00; Stop 08/03/19 at 15:59; Status DC Info (PHARMACY MONITORING -- do not chart) 1 each PRN DAILY PRN MC SEE COMMENTS; Start 08/04/19 at 11:30; Status Cancel Info (PHARMACY MONITORING -- do not chart) 1 each PRN DAILY PRN MC SEE COMMENTS; Start 08/04/19 at 11:30; Status UNV Sodium Chloride 100 meq/Potassium Phosphate 10 mmol/ Magnesium Sulfate 12 meq/Calcium Gluconate 15 meq/ Multivitamins 10 ml/Chromium/ Copper/Manganese/ Seleni/Zn 0.5 ml/ Insulin Human Regular 35 unit/ Potassium Chloride 20 meq/ Total Parenteral Nutrition/Amino Acids/Dextrose/ Fat Emulsion Intravenous 1,400 ml @ 58.333 mls/ hr TPN CONT IV Last administered on 08/04/19at 22:10; Start 08/04/19 at 22:00; Stop 08/05/19 at 21:59; Status DC Sodium Chloride 100 meq/Potassium Phosphate 5 mmol/ Magnesium Sulfate 12 meq/Calcium Gluconate 15 meq/ Multivitamins 10 ml/Chromium/ Copper/Manganese/ Seleni/Zn 0.5 ml/ Insulin Human Regular 35 unit/ Potassium Chloride 20 meq/ Total Parenteral Nutrition/Amino Acids/Dextrose/ Fat Emulsion Intravenous 1,400 ml @ 58.333 mls/ hr TPN CONT IV Last administered on 08/05/19at 22:59; Start 08/05/19 at 22:00; Stop 08/06/19 at 21:59; Status DC Sodium Chloride 1,000 ml @ 1,000 mls/hr Q1H PRN IV hypotension; Start 08/06/19 at 08:27; Stop 08/06/19 at 14:26; Status DC Albumin Human 200 ml @ 200 mls/hr 1X PRN PRN IV Hypotension Last administered on 08/06/19at 09:18; Start 08/06/19 at 08:30; Stop 08/06/19 at 14:29; Status DC Sodium Chloride 1,000 ml @ 400 mls/hr Q2H30M PRN IV PATENCY; Start 08/06/19 at 08:27; Stop 08/06/19 at 20:26; Status DC Info (PHARMACY MONITORING -- do not chart) 1 each PRN DAILY PRN MC SEE COMMENTS; Start 08/06/19 at 08:30; Status Cancel Info (PHARMACY MONITORING -- do not chart) 1 each PRN DAILY PRN MC SEE COMMENTS; Start 08/06/19 at 08:30; Stop 08/14/19 at 13:10; Status DC Sodium Chloride 100 meq/Potassium Chloride 40 meq/ Magnesium Sulfate 15 meq/Calcium Gluconate 15 meq/ Multivitamins 10 ml/Chromium/ Copper/Manganese/ Seleni/Zn 0.5 ml/ Insulin Human Regular 35 unit/ Total Parenteral Nutrition/Amino Acids/Dextrose/ Fat Emulsion Intravenous 1,400 ml @ 58.333 mls/ hr TPN CONT IV Last administered on 08/06/19at 22:00; Start 08/06/19 at 22:00; Stop 08/07/19 at 21:59; Status DC Potassium Chloride/Water 100 ml @ 100 mls/hr 1X ONCE IV Last administered on 08/06/19at 17:28; Start 08/06/19 at 14:45; Stop 08/06/19 at 15:44; Status DC Sodium Chloride 100 meq/Potassium Chloride 40 meq/ Magnesium Sulfate 15 meq/Calcium Gluconate 15 meq/ Multivitamins 10 ml/Chromium/ Copper/Manganese/ Seleni/Zn 0.5 ml/ Insulin Human Regular 35 unit/ Total Parenteral Nutrition/Amino Acids/Dextrose/ Fat Emulsion Intravenous 1,400 ml @ 58.333 mls/ hr TPN CONT IV Last administered on 08/07/19at 22:46; Start 08/07/19 at 22:00; Stop 08/08/19 at 21:59; Status DC Sodium Chloride 100 meq/Potassium Chloride 40 meq/ Magnesium Sulfate 20 meq/Calcium Gluconate 15 meq/ Multivitamins 10 ml/Chromium/ Copper/Manganese/ Seleni/Zn 0.5 ml/ Insulin Human Regular 35 unit/ Total Parenteral Nutri tion/Amino Acids/Dextrose/ Fat Emulsion Intravenous 1,400 ml @ 58.333 mls/ hr TPN CONT IV Last administered on 08/08/19at 22:31; Start 08/08/19 at 22:00; Stop 08/09/19 at 21:59; Status DC Fentanyl Citrate (Fentanyl 2ml Vial) 50 mcg PRN Q2HR PRN IVP PAIN Last administered on 08/15/19at 01:56; Start 08/08/19 at 21:00 Fentanyl Citrate (Fentanyl 2ml Vial) 25 mcg PRN Q2HR PRN IVP PAIN; Start 08/08/19 at 21:00 Enoxaparin Sodium (Lovenox 100mg Syringe) 100 mg Q12HR SQ ; Start 08/09/19 at 21:00; Status UNV Amino Acids/ Glycerin/ Electrolytes 1,000 ml @ 75 mls/hr [id number] IV ; Start 08/08/19 at 21:15; Status UNV Sodium Chloride 1,000 ml @ 1,000 mls/hr Q1H PRN IV hypotension; Start 08/09/19 at 07:56; Stop 08/09/19 at 13:55; Status DC Albumin Human 200 ml @ 200 mls/hr 1X PRN PRN IV Hypotension Last administered on 08/09/19at 08:40; Start 08/09/19 at 08:00; Stop 08/09/19 at 13:59; Status DC Sodium Chloride 1,000 ml @ 400 mls/hr Q2H30M PRN IV PATENCY; Start 08/09/19 at 07:56; Stop 08/09/19 at 19:55; Status DC Info (PHARMACY MONITORING -- do not chart) 1 each PRN DAILY PRN MC SEE COMMENTS; Start 08/09/19 at 08:00; Status UNV Info (PHARMACY MONITORING -- do not chart) 1 each PRN DAILY PRN MC SEE COMMENTS; Start 08/09/19 at 08:00; Status UNV Daptomycin 430 mg/ Sodium Chloride 50 ml @ 100 mls/hr Q24H IV Last administered on 08/09/19at 12:35; Start 08/09/19 at 09:00; Stop 08/09/19 at 12 :49; Status DC Sodium Chloride 100 meq/Potassium Chloride 40 meq/ Magnesium Sulfate 20 meq/Calcium Gluconate 15 meq/ Multivitamins 10 ml/Chromium/ Copper/Manganese/ Seleni/Zn 0.5 ml/ Insulin Human Regular 35 unit/ Total Parenteral Nutrition/Amino Acids/Dextrose/ Fat Emulsion Intravenous 1,400 ml @ 58.333 mls/ hr TPN CONT IV Last administered on 08/09/19at 21:26; Start 08/09/19 at 22:00; Stop 08/10/19 at 21:59; Status DC Daptomycin 430 mg/ Sodium Chloride 50 ml @ 100 mls/hr Q48H IV ; Start 08/11/19 at 09:00; Stop 08/10/19 at 11:55; Status DC Sodium Chloride 100 meq/Potassium Chloride 40 meq/ Magnesium Sulfate 20 meq/Calcium Gluconate 15 meq/ Multivitamins 10 ml/Chromium/ Copper/Manganese/ Seleni/Zn 0.5 ml/ Insulin Human Regular 35 unit/ Total Parenteral Nutrition/Amino Acids/Dextrose/ Fat Emulsion Intravenous 1,400 ml @ 58.333 mls/ hr TPN CONT IV Last administered on 08/10/19at 22:27; Start 08/10/19 at 22:00; Stop 08/11/19 at 21:59; Status DC Daptomycin 430 mg/ Sodium Chloride 50 ml @ 100 mls/hr Q24H IV Last administered on 08/12/19at 15:07; Start 08/10/19 at 13:00; Stop 08/13/19 at 13:15; Status DC Sodium Chloride 100 meq/Potassium Chloride 40 meq/ Magnesium Sulfate 20 meq/Calcium Gluconate 10 meq/ Multivitamins 10 ml/Chromium/ Copper/Manganese/ Seleni/Zn 0.5 ml/ Insulin Human Regular 35 unit/ Total Parenteral Nutrition/Amino Acids/Dextrose/ Fat Emulsion Intravenous 1,400 ml @ 58.333 mls/ hr TPN CONT IV Last administered on 08/12/19at 00:06; Start 08/11/19 at 22:00; Stop 08/12/19 at 21:59; Status DC Alteplase, Recombinant (Cathflo For Central Catheter Clearance) 1 mg 1X ONCE INT CAT Last administered on 08/12/19at 11:44; Start 08/12/19 at 10:45; Stop 08/12/19 at 10:46; Status DC Ondansetron HCl (Zofran) 4 mg PRN Q6HRS PRN IV NAUSEA/VOMITING; Start 08/15/19 at 07:00; Stop 08/16/19 at 06:59 Fentanyl Citrate (Fentanyl 2ml Vial) 25 mcg PRN Q5MIN PRN IV MILD PAIN 1-3; Start 08/15/19 at 07:00; Stop 08/16/19 at 06:59 Fentanyl Citrate (Fentanyl 2ml Vial) 50 mcg PRN Q5MIN PRN IV MODERATE TO SEVERE PAIN Last administered on 08/15/19at 10:17; Start 08/15/19 at 07:00; Stop 08/16/19 at 06:59 Ringer's Solution 1,000 ml @ 30 mls/hr Q24H IV ; Start 08/15/19 at 07:00; Stop 08/15/19 at 18:59 Lidocaine HCl (Xylocaine-Mpf 1% 2ml Vial) 2 ml PRN 1X PRN ID PRIOR TO IV START; Start 08/15/19 at 07:00; Stop 08/16/19 at 06:59 Prochlorperazine Edisylate (Compazine) 5 mg PACU PRN PRN IV NAUSEA, MRX1; Start 08/15/19 at 07:00; Stop 08/16/19 at 06:59 Sodium Acetate 50 meq/Potassium Acetate 55 meq/ Magnesium Sulfate 20 meq/Calcium Gluconate 10 meq/ Multivitamins 10 ml/Chromium/ Copper/Manganese/ Seleni/Zn 0.5 ml/ Insulin Human Regular 35 unit/ Total Parenteral Nutrition/Amino Acids/Dextrose/ Fat Emulsion Intravenous 1,400 ml @ 58.333 mls/ hr TPN CONT IV ; Start 08/12/19 at 22:00; Stop 08/12/19 at 14:15; Status DC Sodium Acetate 50 meq/Potassium Acetate 55 meq/ Magnesium Sulfate 20 meq/Calcium Gluconate 10 meq/ Multivitamins 10 ml/Chromium/ Copper/Manganese/ Seleni/Zn 0.5 ml/ Insulin Human Regular 35 unit/ Total Parenteral Nutrition/Amino Acids/Dextrose/ Fat Emulsion Intravenous 1,800 ml @ 75 mls/hr TPN CONT IV Last administered on 08/12/19at 22:38; Start 08/12/19 at 22:00; Stop 08/13/19 at 21:59; Status DC Sodium Chloride 1,000 ml @ 1,000 mls/hr Q1H PRN IV hypotension; Start 08/12/19 at 15:31; Stop 08/12/19 at 21:30; Status DC Diphenhydramine HCl (Benadryl) 25 mg 1X PRN PRN IV ITCHING; Start 08/12/19 at 15:45; Stop 08/13/19 at 15:44; Status DC Diphenhydramine HCl (Benadryl) 25 mg 1X PRN PRN IV ITCHING; Start 08/12/19 at 15:45; Stop 08/13/19 at 15:44; Status DC Sodium Chloride 1,000 ml @ 400 mls/hr Q2H30M PRN IV PATENCY; Start 08/12/19 at 15:31; Stop 08/13/19 at 03:30; Status DC Info (PHARMACY MONITORING -- do not chart) 1 each PRN DAILY PRN MC SEE COMMENTS; Start 08/12/19 at 15:45 Sodium Acetate 50 meq/Potassium Acetate 55 meq/ Magnesium Sulfate 20 meq/Calcium Gluconate 10 meq/ Multivitamins 10 ml/Chromium/ Copper/Manganese/ Seleni/Zn 0.5 ml/ Insulin Human Regular 35 unit/ Total Parenteral Nutrition/Amino Acids/Dextro se/ Fat Emulsion Intravenous 1,800 ml @ 75 mls/hr TPN CONT IV Last administered on 08/13/19at 22:03; Start 08/13/19 at 22:00; Stop 08/14/19 at 21:59; Status DC Daptomycin 430 mg/ Sodium Chloride 50 ml @ 100 mls/hr Q24H IV Last administered on 08/14/19at 14:13; Start 08/13/19 at 13:00 Heparin Sodium (Porcine) 1000 unit/Sodium Chloride 1,001 ml @ 1,001 mls/hr 1X ONCE IRR ; Start 08/15/19 at 06:00; Stop 08/15/19 at 06:59; Status DC Potassium Acetate 55 meq/Magnesium Sulfate 20 meq/ Calcium Gluconate 10 meq/ Multivitamins 10 ml/Chromium/ Copper/Manganese/ Seleni/Zn 0.5 ml/ Insulin Human Regular 35 unit/ Total Parenteral Nutrition/Amino Acids/Dextrose/ Fat Emulsion Intravenous 1,920 ml @ 80 mls/hr TPN CONT IV Last administered on 08/14/19at 22:10; Start 08/14/19 at 22:00; Stop 08/15/19 at 21:59 Dexamethasone Sodium Phosphate (Decadron) 4 mg STK-MED ONCE .ROUTE ; Start 08/15/19 at 10:56; Stop 08/15/19 at 10:57; Status DC Ondansetron HCl (Zofran) 4 mg STK-MED ONCE .ROUTE ; Start 08/15/19 at 10:56; Stop 08/15/19 at 10:57; Status DC Rocuronium [place] (Zemuron) 50 mg STK-MED ONCE .ROUTE ; Start 08/15/19 at 10:56; Stop 08/15/19 at 10:57; Status DC Fentanyl Citrate (Fentanyl 2ml Vial) 100 mcg STK-MED ONCE .ROUTE ; Start 08/15/19 at 10:56; Stop 08/15/19 at 10:57; Status DC Bupivacaine HCl/ Epinephrine Bitart (Sensorcain-Epi 0.5%-1:525153 Mpf) 30 ml STK-MED ONCE .ROUTE ; Start 08/15/19 at 10:58; Stop 08/15/19 at 10:58; Status DC Cellulose (Surgicel Hemostat 2x14) 1 each STK-MED ONCE .ROUTE ; Start 08/15/19 at 10:58; Stop 08/15/19 at 10:59; Status DC Iohexol (Omnipaque 300 Mg/ml) 50 ml STK-MED ONCE .ROUTE ; Start 08/15/19 at 10:58; Stop 08/15/19 at 10:59; Status DC Cellulose (Surgicel Hemostat 4x8) 1 each STK-MED ONCE .ROUTE ; Start 08/15/19 at 10:58; Stop 08/15/19 at 10:59; Status DC Bisacodyl (Dulcolax Supp) 10 mg STK-MED ONCE .ROUTE ; Start 08/15/19 at 10:59; Stop 08/15/19 at 10:59; Status DC Heparin Sodium (Porcine) 1000 unit/Sodium Chloride 1,001 ml @ 1,001 mls/hr 1X ONCE IRR ; Start 08/15/19 at 12:00; Stop 08/15/19 at 12:59 Propofol 20 ml @ As Directed STK-MED ONCE IV ; Start 08/15/19 at 11:05; Stop 08/15/19 at 11:05; Status DC Sevoflurane (Ultane) 90 ml STK-MED ONCE IH ; Start 08/15/19 at 11:05; Stop 08/15/19 at 11:05; Status DC Active Scripts Active Reported Bisoprolol Fumarate 5 Mg Tablet 10 Mg PO DAILY Vitals/I & O Vital Sign - Last 24 Hours 08/14/19 08/14/19 08/14/19 08/14/19 11:41 12:00 12:00 13:00 Temp 100.3 100.3 Pulse 90 80 Resp 36 25 B/P (MAP) 128/68 (88) 117/69 (85) Pulse Ox 98 99 99 O2 Delivery Ventilator Ventilator Mechanical Ventilator Ventilator 08/14/19 08/14/19 08/14/19 08/14/19 13:36 13:56 14:00 14:26 Pulse 99 Resp 27 37 29 B/P (MAP) 140/83 (102) Pulse Ox 99 100 100 99 O2 Delivery Ventilator Ventilator Ventilator Ventilator 08/14/19 08/14/19 08/14/19 08/14/19 15:00 15:40 16:00 16:00 Temp 101.1 101.1 Pulse 93 92 Resp 32 B/P (MAP) 162/93 (116) 148/84 (105) Pulse Ox 99 99 100 O2 Delivery Ventilator Ventilator Mechanical Ventilator Ventilator 08/14/19 08/14/19 08/14/19 08/14/19 16:29 16:59 17:00 17:29 Pulse 113 Resp 33 31 36 B/P (MAP) 168/91 (116) Pulse Ox 100 99 98 98 O2 Delivery Ventilator Ventilator Ventilator Ventilator 08/14/19 08/14/19 08/14/19 08/14/19 18:00 19:00 20:00 20:00 Temp 100.1 100.1 Pulse 96 92 86 Resp 29 29 34 B/P (MAP) 168/92 (117) 140/74 (96) 120/69 (86) Pulse Ox 96 98 97 O2 Delivery Ventilator Ventilator Ventilator Mechanical Ventilator 08/14/19 08/14/19 08/14/19 08/14/19 20:23 21:00 22:00 22:49 Pulse 80 86 Resp 23 31 26 B/P (MAP) 111/57 (75) 119/79 (92) Pulse Ox 97 97 99 99 O2 Delivery Ventilator Ventilator Ventilator Ventilator 08/14/19 08/14/19 08/15/19 08/15/19 23:00 23:41 00:00 00:08 Temp 101.1 101.1 Pulse 108 108 Resp 29 40 B/P (MAP) 131/63 (85) 133/83 (100) Pulse Ox 97 97 97 O2 Delivery Ventilator Ventilator Ventilator Mechanical Ventilator 08/15/19 08/15/19 08/15/19 08/15/19 01:00 01:56 02:00 02:30 Temp 100.5 100.5 Pulse 84 80 Resp 22 18 18 B/P (MAP) 117/64 (81) 121/73 (89) Pulse Ox 97 96 97 O2 Delivery Ventilator Ventilator Ventilator Ventilator 08/15/19 08/15/19 08/15/19 08/15/19 03:00 04:00 04:00 04:54 Temp 100.2 100.2 Pulse 78 78 Resp 22 28 B/P (MAP) 147/75 (99) 130/80 (97) Pulse Ox 98 97 97 O2 Delivery Ventilator Ventilator Mechanical Ventilator Ventilator 08/15/19 08/15/19 08/15/19 08/15/19 05:00 06:00 07:00 07:48 Pulse 80 74 90 Resp 18 18 28 B/P (MAP) 124/72 (89) 130/68 (88) 132/83 (99) Pulse Ox 98 97 100 100 O2 Delivery Ventilator Ventilator Ventilator Ventilator 08/15/19 08/15/19 08/15/19 08/15/19 07:55 08:00 08:00 09:00 Temp 100.2 100.2 Pulse 88 88 Resp 35 23 B/P (MAP) 104/81 (89) 120/73 (89) Pulse Ox 99 98 O2 Delivery Ventilator Ventilator Mechanical Ventilator Ventilator 08/15/19 08/15/19 08/15/19 08/15/19 09:40 10:00 10:17 10:47 Pulse 94 Resp 27 B/P (MAP) 151/82 (105) Pulse Ox 100 100 99 99 O2 Delivery Ventilator Ventilator Ventilator Ventilator 08/15/19 11:00 Pulse 76 Resp 24 B/P (MAP) 155/76 (102) Pulse Ox 99 O2 Delivery Ventilator Intake and Output 08/14/19 08/14/19 08/15/19 15:00 23:00 07:00 Intake Total 150 ml 1446 ml 1154 ml Output Total 975 ml 1185 ml 915 ml Balance -825 ml 261 ml 239 ml ABI AHN MD Aug 15, 2019 11:35
--- NOTE | 2019-08-15 12:01 | PDOC ---
Renal-Progress Notes Subjective Notes Notes AWAKE ALERT AND TALKING History of Present Illness Hx of present illness MUCH IMPROVED Vitals Vitals Vital Signs Date Time Temp Pulse Resp B/P (MAP) Pulse Ox O2 Delivery O2 Flow Rate FiO2 08/15/19 11:09 99 Ventilator 08/15/19 11:00 76 24 155/76 (102) 08/15/19 08:00 100.2 100.2 Weight Weight [ ] I.O. Intake and Output Intake and Output 08/15/19 07:00 Intake Total 2750 ml Output Total 3075 ml Balance -325 ml Intake Oral 0 ml IV Total 2750 ml Output Urine Total 3075 ml Labs Labs Laboratory Tests Test 08/14/19 12:09 08/14/19 17:28 08/15/19 00:41 08/15/19 04:30 Glucose (Fingerstick) 148 mg/dL (70-99) 144 mg/dL (70-99) 134 mg/dL (70-99) White Blood Count 9.2 x10^3/uL (4.0-11.0) Red Blood Count 2.72 x10^6/uL (3.50-5.40) Hemoglobin 8.2 g/dL (12.0-15.5) Hematocrit 24.6 % (36.0-47.0) Mean Corpuscular Volume 90 fL (79-100) Mean Corpuscular Hemoglobin 30 pg (25-35) Mean Corpuscular Hemoglobin Concent 33 g/dL (31-37) Red Cell Distribution Width 18.4 % (11.5-14.5) Platelet Count 323 x10^3/uL (140-400) Neutrophils (%) (Auto) 78 % (31-73) Lymphocytes (%) (Auto) 15 % (24-48) Monocytes (%) (Auto) 6 % (0-9) Eosinophils (%) (Auto) 1 % (0-3) Basophils (%) (Auto) 0 % (0-3) Neutrophils # (Auto) 7.1 x10^3/uL (1.8-7.7) Lymphocytes # (Auto) 1.4 x10^3/uL (1.0-4.8) Monocytes # (Auto) 0.5 x10^3/uL (0.0-1.1) Eosinophils # (Auto) 0.1 x10^3/uL (0.0-0.7) Basophils # (Auto) 0.0 x10^3/uL (0.0-0.2) Sodium Level 149 mmol/L (136-145) Potassium Level 3.6 mmol/L (3.5-5.1) Chloride Level 111 mmol/L (98-107) Carbon Dioxide Level 30 mmol/L (21-32) Anion Gap 8 (6-14) Blood Urea Nitrogen 57 mg/dL (7-20) Creatinine 1.1 mg/dL (0.6-1.0) Estimated GFR (Cockcroft-Gault) 52.8 Glucose Level 123 mg/dL (70-99) Calcium Level 8.5 mg/dL (8.5-10.1) Creatine Kinase 24 U/L (26-192) Micro Micro Microbiology 08/03/19 Aerobic and Anaerobic Culture - Final, Complete 08/03/19 Anaerobic Culture Result 1 (ALEXANDRA) - Final, Complete 08/03/19 Aerobic Culture - Final, Complete 08/03/19 Aerobic Culture Result 1 (ALEXANDRA) - Final, Complete 08/03/19 Gram Stain - Final, Complete 08/03/19 Gram Stain Result 1 (ALEXANDRA) - Final, Complete 08/03/19 Gram Stain Result 2 (ALEXANDRA) - Final, Complete 08/02/19 Blood Culture - Final, Complete NO GROWTH AFTER 5 DAYS 07/31/19 Urine Culture - Final, Complete 07/31/19 Urine Culture Result 1 (ALEXANDRA) - Final, Complete Review of Systems Constitutional: yes: other (ON THE VENT) Physical Exam General Appearance: other (ON THE VENT, TRACH) Skin: warm Respiratory: decreased breath sounds Heart: S1S2 Abdomen: soft, bowel sounds present Genitourinary: bladder flat Extremities: pulses present, edema Neurology: alert, oriented, other Assessment Assessment IMP [id number] IMPROVED AND OFF HD FOR NOW ANEMIA LEUCOCYTOSIS-RESOLVED ANASARCA DUE TO 3RD SPACING HYPERKALEMIA-RESOLVED ACIDOSIS AND ACIDEMIA-RESOLVED ACUTE REPS FAILURE-TRACH ACUTE PANCREATITIS HYPOALBUMINEMIA PLAN NO HD FOR NOW TPN TO CONTINUE NEEDED PRBC NEEDED CHECK IRON STORES START HIRAM IF NEEDED VENT SUPPORT ANTIBIOTICS WILL NEED LTAC UPDATED FAMILY WILL FOLLOW DONI GARCIA MD Aug 15, 2019 12:01
[2019-08-15] MEDS ORDERED: SEVOFLURANE 61 TO 120 MINUTES. IH ONE (12:26)
[2019-08-15] MEDS ORDERED: PHENYLEPHRINE in 0.9% NACL PF 1 MG/10 ML SYRINGE. IV ONE (12:34)
--- NOTE | 2019-08-15 13:07 | PDOC ---
Infectious Disease Note Subjective: Subjective Patient back from surgery Underwent drain placement T-max 101 Remains on vent via trach, TPN Vital Signs: Vital Signs Vital Signs Date Time Temp Pulse Resp B/P (MAP) Pulse Ox O2 Delivery O2 Flow Rate FiO2 08/15/19 12:59 93 Ventilator 08/15/19 11:00 76 24 155/76 (102) 08/15/19 08:00 100.2 100.2 Physical Exam: PHYSICAL EXAM GENERAL: Propped up in bed, sedated weak appearing HEENT: Pupils equal, + NGT, oral cavity dry NECK: Trach/vent LUNGS: rhonchi HEART: S1, S2, regular ABDOMEN: Distended, tender, hypoactive BS, drain placement (427 ) : [facility] (08/01) EXTREMITIES: Generalized edema, no cyanosis, SCDs bilaterally DERMATOLOGIC: Warm and dry. No generalized rash. CENTRAL NERVOUS SYSTEM: Extremely weak, nods to few simple questions HDC has been removed [facility] (08/01) clean Medications: Inpatient Meds: Current Medications Medications (Trade) Dose Ordered Sig/Yvon Start Time Stop Time Status Last Admin Dose Admin Acetaminophen (Tylenol Supp) 650 mg PRN Q6HRS PRN 07/12/19 10:30 08/15/19 00:32 650 MG Acetaminophen (Tylenol) 650 mg PRN Q6HRS PRN 07/09/19 03:36 08/04/19 19:56 650 MG Albumin Human 200 ml @ 200 mls/hr 1X PRN PRN 08/09/19 08:00 08/09/19 13:59 DC 08/09/19 08:40 200 MLS/HR Albuterol Sulfate (Ventolin Neb Soln) 2.5 mg 1X ONCE 07/05/19 22:30 07/05/19 22:31 DC 07/06/19 00:56 2.5 MG Alteplase, Recombinant (Cathflo For Central Catheter Clearance) 1 mg 1X ONCE 08/12/19 10:45 08/12/19 10:46 DC 08/12/19 11:44 1 MG Amino Acids/ Glycerin/ Electrolytes 1,000 ml @ 75 mls/hr [id number] 08/08/19 21:15 UNV Artificial Tears (Artificial Tears) 1 drop PRN Q1HR PRN 07/11/19 08:15 Atenolol (Tenormin) 100 mg DAILY 07/05/19 09:00 07/04/19 20:08 DC Atropine Sulfate (ATROPINE 0.5mg SYRINGE) 0.5 mg PRN Q5MIN PRN 07/21/19 08:15 Benzocaine (Hurricaine One) 1 spray 1X ONCE 07/08/19 14:30 07/08/19 14:31 DC 07/08/19 16:38 1 SPRAY Bisacodyl (Dulcolax Supp) 10 mg STK-MED ONCE 08/15/19 10:59 08/15/19 10:59 DC Bupivacaine HCl/ Epinephrine Bitart (Sensorcain-Epi 0.5%-1:[id number] Mpf) 30 ml STK-MED ONCE 08/15/19 10:58 08/15/19 10:58 DC 08/15/19 12:01 7 ML Calcium Carbonate/ Glycine (Tums) 500 mg PRN [id number] PRN 07/06/19 17:45 Calcium Chloride 1000 mg/Sodium Chloride 110 ml @ 220 mls/hr 1X ONCE 07/05/19 22:30 07/05/19 22:59 DC 07/05/19 22:11 220 MLS/HR Calcium Chloride 3000 mg/Sodium Chloride 1,030 ml @ 50 mls/hr [id number] 07/07/19 08:00 07/09/19 15:23 DC 07/09/19 02:17 50 MLS/HR Calcium Gluconate (Calcium Gluconate) 2,000 mg 1X ONCE 07/07/19 02:15 07/07/19 02:16 DC 07/07/19 02:19 2,000 MG Calcium Gluconate 1000 mg/Sodium Chloride 110 ml @ 220 mls/hr 1X ONCE 07/06/19 03:30 07/06/19 03:59 DC 07/06/19 03:21 220 MLS/HR Calcium Gluconate 2000 mg/Sodium Chloride 120 ml @ 220 mls/hr 1X ONCE 07/06/19 07:30 07/06/19 08:02 DC 07/06/19 09:05 220 MLS/HR Cefepime HCl (Maxipime) 2 gm Q12HR 07/13/19 09:00 07/27/19 09:58 DC 07/26/19 20:56 2 GM Cellulose (Surgicel Fibrillar 1x2) 1 each STK-MED ONCE 07/25/19 11:00 07/25/19 11:01 DC Cellulose (Surgicel Hemostat 2x14) 1 each STK-MED ONCE 08/15/19 10:58 08/15/19 10:59 DC Cellulose (Surgicel Hemostat 4x8) 1 each STK-MED ONCE 08/15/19 10:58 08/15/19 10:59 DC Daptomycin 430 mg/ Sodium Chloride 50 ml @ 100 mls/hr Q24H 08/13/19 13:00 08/14/19 14:13 100 MLS/HR Daptomycin 500 mg/ Sodium Chloride 50 ml @ 100 mls/hr Q48H 07/13/19 08:30 07/29/19 10:07 DC 07/29/19 09:57 100 MLS/HR Dexamethasone Sodium Phosphate (Decadron) 4 mg STK-MED ONCE 08/15/19 10:56 08/15/19 10:57 DC Dexmedetomidine HCl 400 mcg/ Sodium Chloride 100 ml @ 0 mls/hr CONT PRN 07/21/19 08:15 08/15/19 10:18 33 MLS/HR Dextrose (Dextrose 50%-Water Syringe) 12.5 gm PRN Q15MIN PRN 07/04/19 09:30 Digoxin (Lanoxin) 125 mcg 1X ONCE 07/07/19 18:00 07/07/19 18:01 DC 07/07/19 17:10 125 MCG Diphenhydramine HCl (Benadryl) 25 mg 1X PRN PRN 08/12/19 15:45 08/13/19 15:44 DC Enoxaparin Sodium (Lovenox 100mg Syringe) 100 mg Q12HR 08/09/19 21:00 UNV Etomidate (Amidate) 8 mg 1X ONCE 07/11/19 08:30 07/11/19 08:31 DC 07/11/19 08:33 8 MG Fentanyl Citrate (Fentanyl 2ml Vial) 100 mcg STK-MED ONCE 08/15/19 10:56 08/15/19 10:57 DC Furosemide (Lasix) 40 mg 1X ONCE 08/01/19 14:30 08/01/19 14:31 DC 08/01/19 14:39 40 MG Heparin Sodium (Porcine) (Hep Lock Adult) 500 unit STK-MED ONCE 07/26/19 09:29 07/26/19 09:30 DC Heparin Sodium (Porcine) (Heparin Sodium) 5,000 unit Q12HR 07/22/19 21:00 08/14/19 10:05 DC 08/14/19 08:59 5,000 UNIT Heparin Sodium (Porcine) 1000 unit/Sodium Chloride 1,001 ml @ 1,001 mls/hr 1X ONCE 08/15/19 12:00 08/15/19 12:59 DC Hydromorphone HCl (Dilaudid) 1 mg PRN Q3HRS PRN 07/05/19 12:00 07/19/19 00:25 DC 07/11/19 05:13 1 MG Info (CONTRAST GIVEN -- Rx MONITORING) 1 each PRN DAILY PRN 07/18/19 11:45 07/20/19 11:44 DC Info (Icu Electrolyte Protocol) 1 ea CONT PRN PRN 07/17/19 13:15 Info (PHARMACY MONITORING -- do not chart) 1 each PRN DAILY PRN 08/12/19 15:45 Info (Tpn Per Pharmacy) 1 each PRN DAILY PRN 07/06/19 12:30 UNV Insulin Human Lispro (HumaLOG) 0-9 UNITS Q6HRS 07/04/19 09:30 08/12/19 13:19 4 UNITS Insulin Human Regular (HumuLIN R VIAL) 5 unit 1X ONCE 07/05/19 22:30 07/05/19 22:31 DC 07/05/19 22:14 5 UNIT Iohexol (Omnipaque 240 Mg/ml) 30 ml 1X ONCE 07/18/19 11:30 07/18/19 11:33 DC 07/18/19 11:30 30 ML Iohexol (Omnipaque 300 Mg/ml) 50 ml STK-MED ONCE 08/15/19 10:58 08/15/19 10:59 DC Iohexol (Omnipaque 350 Mg/ml) 90 ml 1X ONCE 07/04/19 03:30 07/04/19 03:31 DC 07/04/19 03:25 90 ML Ketorolac Tromethamine (Toradol 30mg Vial) 30 mg 1X ONCE 07/04/19 03:00 07/04/19 03:01 DC 07/04/19 02:54 30 MG Lidocaine HCl (Buffered Lidocaine 1%) 6 ml 1X ONCE 08/03/19 13:30 08/03/19 13:31 DC 08/03/19 13:45 9 ML Lidocaine HCl (Glydo (Lidocaine) Jelly) 1 ramu 1X ONCE 07/08/19 14:30 07/08/19 14:31 DC 07/08/19 16:38 1 RAMU Lidocaine HCl (Xylocaine-Mpf 1% 2ml Vial) 2 ml PRN 1X PRN 08/15/19 07:00 08/16/19 06:59 Linezolid/Dextrose 300 ml @ 300 mls/hr Q12HR 07/29/19 11:00 08/09/19 08:10 DC 08/08/19 20:40 300 MLS/HR Lorazepam (Ativan Inj) 1 mg PRN Q4HRS PRN 07/07/19 09:00 08/05/19 09:19 DC 08/05/19 03:51 1 MG Magnesium Sulfate 50 ml @ 25 mls/hr PRN DAILY PRN 07/24/19 09:15 08/08/19 17:27 25 MLS/HR Meropenem 1 gm/ Sodium Chloride 100 ml @ 200 mls/hr Q8HRS 07/05/19 20:00 07/06/19 08:48 DC 07/06/19 05:45 200 MLS/HR Meropenem 500 mg/ Sodium Chloride 50 ml @ 100 mls/hr Q12H 07/27/19 10:00 08/15/19 09:24 100 MLS/HR Metoprolol Tartrate (Lopressor Vial) 5 mg Q6HRS 07/05/19 10:15 07/16/19 08:48 DC 07/14/19 00:12 5 MG Metronidazole 100 ml @ 100 mls/hr Q8HRS 08/02/19 10:00 08/09/19 08:10 DC 08/09/19 06:04 100 MLS/HR Micafungin Sodium 100 mg/Dextrose 100 ml @ 100 mls/hr Q24H 07/11/19 09:00 08/15/19 08:09 100 MLS/HR Midazolam HCl (Versed) 5 mg 1X ONCE 07/11/19 08:30 07/11/19 08:31 DC Midazolam HCl 100 mg/Sodium Chloride 100 ml @ 7 mls/hr CONT PRN 07/16/19 16:00 07/27/19 15:35 7 MLS/HR Midazolam HCl 50 mg/Sodium Chloride 50 ml @ 0 mls/hr CONT PRN 07/11/19 08:15 07/16/19 15:59 DC 07/14/19 22:39 7 MLS/HR Morphine Sulfate (Morphine Sulfate) 2 mg PRN Q2HR PRN 07/04/19 05:00 07/05/19 14:15 DC 07/05/19 12:26 2 MG Multi-Ingred Cream/Lotion/Oil/ Oint (Artificial Tears Eye Ointment) 1 ramu PRN Q1HR PRN 07/13/19 17:30 08/01/19 08:19 1 RAMU Norepinephrine Bitartrate 8 mg/ Dextrose 258 ml @ 17.299 mls/ hr CONT PRN 07/05/19 15:30 08/05/19 09:19 DC 08/02/19 12:48 20.9 MLS/HR Ondansetron HCl (Zofran) 4 mg STK-MED ONCE 08/15/19 10:56 08/15/19 10:57 DC Pantoprazole Sodium (PROTONIX VIAL for IV PUSH) 40 mg DAILYAC 07/04/19 11:30 08/15/19 08:08 40 MG Phenylephrine HCl (PHENYLEPHRINE in 0.9% NACL PF) 1 mg STK-MED ONCE 08/15/19 12:34 08/15/19 12:34 DC Piperacillin Sod/ Tazobactam Sod 4.5 gm/Sodium Chloride 100 ml @ 200 mls/hr 1X ONCE 07/04/19 06:00 07/04/19 06:29 DC 07/04/19 05:44 200 MLS/HR Potassium Chloride 15 meq/ Bicarbonate Dialysis Soln w/ out KCl 5,007.5 ml @ 1,000 mls/ hr Q5H1M 07/17/19 20:00 07/21/19 13:08 DC 07/20/19 18:14 1,000 MLS/HR Potassium Chloride 20 meq/ Bicarbonate Dialysis Soln w/ out KCl 5,010 ml @ 1,000 mls/hr Q5H1M 07/13/19 16:00 07/17/19 19:59 DC 07/17/19 14:54 1,000 MLS/HR Potassium Chloride/Water 100 ml @ 100 mls/hr 1X ONCE 08/06/19 14:45 08/06/19 15:44 DC 08/06/19 17:28 100 MLS/HR Potassium Phosphate 20 mmol/ Sodium Chloride 106.6667 ml @ 51.667 m... 1X ONCE 07/13/19 13:00 07/13/19 15:03 DC 07/13/19 12:51 51.667 MLS/HR Potassium Acetate 55 meq/Magnesium Sulfate 20 meq/ Calcium Gluconate 10 meq/ Multivitamins 10 ml/Chromium/ Copper/Manganese/ Seleni/Zn 0.5 ml/ Insulin Human Regular 35 unit/ Total Parenteral Nutrition/Amino Acids/Dextrose/ Fat Emulsion Intravenous 1,920 ml @ 80 mls/hr TPN CONT 08/14/19 22:00 08/15/19 21:59 08/14/19 22:10 80 MLS/HR Prochlorperazine Edisylate (Compazine) 5 mg PACU PRN PRN 08/15/19 07:00 08/16/19 06:59 Propofol 20 ml @ As Directed STK-MED ONCE 08/15/19 12:26 08/15/19 12:27 DC Ringer's Solution 1,000 ml @ 30 mls/hr Q24H 08/15/19 07:00 08/15/19 18:59 Rocuronium Paradox (Zemuron) 50 mg STK-MED ONCE 08/15/19 10:56 08/15/19 10:57 DC Sevoflurane (Ultane) 60 ml STK-MED ONCE 08/15/19 12:26 08/15/19 12:27 DC Sodium Bicarbonate 50 meq/Sodium Chloride 1,050 ml @ 75 mls/hr Q14H 07/06/19 07:30 07/11/19 10:28 DC 07/10/19 21:10 75 MLS/HR Sodium Acetate 50 meq/Potassium Acetate 55 meq/ Magnesium Sulfate 20 meq/Calcium Gluconate 10 meq/ Multivitamins 10 ml/Chromium/ Copper/Manganese/ Seleni/Zn 0.5 ml/ Insulin Human Regular 35 unit/ Total Parenteral Nutrition/Amino Acids/Dextrose/ Fat Emulsion Intravenous 1,800 ml @ 75 mls/hr TPN CONT 08/13/19 22:00 08/14/19 21:59 DC 08/13/19 22:03 75 MLS/HR Sodium Chloride 1,000 ml @ 400 mls/hr Q2H30M PRN 08/12/19 15:31 08/13/19 03:30 DC Sodium Chloride (Normal Saline Flush) 20 ml PRN Q5MIN PRN 08/02/19 15:00 Sodium Chloride 90 meq/Calcium Gluconate 10 meq/ Multivitamins 10 ml/Chromium/ Copper/Manganese/ Seleni/Zn 0.5 ml/ Total Parenteral Nutrition/Amino Acids/Dextrose/ Fat Emulsion Intravenous 1,512 ml @ 63 mls/hr TPN CONT 07/06/19 22:00 07/07/19 21:59 DC 07/06/19 22:06 63 MLS/HR Sodium Chloride 90 meq/Calcium Gluconate 10 meq/ Multivitamins 10 ml/Chromium/ Copper/Manganese/ Seleni/Zn 1 ml/ Total Parenteral Nutrition/Amino Acids/Dextrose/ Fat Emulsion Intravenous 55.005 ml @ 2.292 mls/hr TPN CONT 07/06/19 22:00 07/06/19 12:33 DC Sodium Chloride 90 meq/Magnesium Sulfate 10 meq/ Calcium Gluconate 20 meq/ Multivitamins 10 ml/Chromium/ Copper/Manganese/ Seleni/Zn 0.5 ml/ Total Parenteral Nutrition/Amino Acids/Dextrose/ Fat Emulsion Intravenous 1,512 ml @ 63 mls/hr TPN CONT 07/07/19 22:00 07/08/19 21:59 DC 07/07/19 22:25 63 MLS/HR Sodium Chloride 90 meq/Magnesium Sulfate 12 meq/ Calcium Gluconate 15 meq/ Multivitamins 10 ml/Chromium/ Copper/Manganese/ Seleni/Zn 0.5 ml/ Insulin Human Regular 25 unit/ Total Parenteral Nutrition/Amino Acids/Dextrose/ Fat Emulsion Intravenous 1,400 ml @ 58.333 mls/ hr TPN CONT 07/27/19 22:00 07/28/19 21:59 DC 07/27/19 21:41 58.333 MLS/HR Sodium Chloride 90 meq/Potassium Chloride 15 meq/ Magnesium Sulfate 12 meq/Calcium Gluconate 15 meq/ Multivitamins 10 ml/Chromium/ Copper/Manganese/ Seleni/Zn 0.5 ml/ Insulin Human Regular 25 unit/ Total Parenteral Nutrition/Amino Acids/Dextrose/ Fat Emulsion Intravenous 1,400 ml @ 58.333 mls/ hr TPN CONT 07/26/19 22:00 07/27/19 21:59 DC 07/26/19 22:13 58.333 MLS/HR Sodium Chloride 90 meq/Potassium Chloride 15 meq/ Potassium Phosphate 10 mmol/ Magnesium Sulfate 8 meq/Calcium Gluconate 15 meq/ Multivitamins 10 ml/Chromium/ Copper/Manganese/ Seleni/Zn 0.5 ml/ Insulin Human Regular 25 unit/ Total Parenteral Nutrition/Amino Acids/Dextrose/ Fat Emulsion Intravenous 1,400 ml @ 58.333 mls/ hr TPN CONT 07/24/19 22:00 07/25/19 21:59 DC 07/24/19 21:20 58.333 MLS/HR Sodium Chloride 90 meq/Potassium Chloride 15 meq/ Potassium Phosphate 10 mmol/ Magnesium Sulfate 10 meq/Calcium Gluconate 20 meq/ Multivitamins 10 ml/Chromium/ Copper/Manganese/ Seleni/Zn 0.5 ml/ Total Parenteral Nutrition/Amino Acids/Dextrose/ Fat Emulsion Intravenous 1,400 ml @ 58.333 mls/ hr TPN CONT 07/11/19 22:00 07/12/19 21:59 DC 07/11/19 21:42 58.333 MLS/HR Sodium Chloride 90 meq/Potassium Chloride 15 meq/ Potassium Phosphate 10 mmol/ Magnesium Sulfate 12 meq/Calcium Gluconate 15 meq/ Multivitamins 10 ml/Chromium/ Copper/Manganese/ Seleni/Zn 0.5 ml/ Insulin Human Regular 25 unit/ Total Parenteral Nutrition/Amino Acids/Dextrose/ Fat Emulsion Intravenous 1,400 ml @ 58.333 mls/ hr TPN CONT 07/25/19 22:00 07/26/19 21:59 DC 07/25/19 22:24 58.333 MLS/HR Sodium Chloride 90 meq/Potassium Chloride 15 meq/ Potassium Phosphate 15 mmol/ Magnesium Sulfate 10 meq/Calcium Gluconate 15 meq/ Multivitamins 10 ml/Chromium/ Copper/Manganese/ Seleni/Zn 0.5 ml/ Total Parenteral Nutrition/Amino Acids/Dextrose/ Fat Emulsion Intravenous 1,400 ml @ 58.333 mls/ hr TPN CONT 07/12/19 22:00 07/13/19 21:59 DC 07/12/19 22:17 58.333 MLS/HR Sodium Chloride 90 meq/Potassium Chloride 15 meq/ Potassium Phosphate 15 mmol/ Magnesium Sulfate 10 meq/Calcium Gluconate 20 meq/ Multivitamins 10 ml/Chromium/ Copper/Manganese/ Seleni/Zn 0.5 ml/ Total Parenteral Nutrition/Amino Acids/Dextrose/ Fat Emulsion Intravenous 1,200 ml @ 50 mls/hr TPN CONT 07/10/19 22:00 07/10/19 14:17 DC Sodium Chloride 90 meq/Potassium Chloride 15 meq/ Potassium Phosphate 18 mmol/ Magnesium Sulfate 8 meq/Calcium Gluconate 15 meq/ Multivitamins 10 ml/Chromium/ Copper/Manganese/ Seleni/Zn 0.5 ml/ Insulin Human Regular 10 unit/ Total Parenteral Nutrition/Amino Acids/Dextrose/ Fat Emulsion Intravenous 1,400 ml @ 58.333 mls/ hr TPN CONT 07/15/19 22:00 07/16/19 21:59 DC 07/15/19 21:43 58.333 MLS/HR Sodium Chloride 90 meq/Potassium Chloride 15 meq/ Potassium Phosphate 18 mmol/ Magnesium Sulfate 8 meq/Calcium Gluconate 15 meq/ Multivitamins 10 ml/Chromium/ Copper/Manganese/ Seleni/Zn 0.5 ml/ Insulin Human Regular 15 unit/ Total Parenteral Nutrition/Amino Acids/Dextrose/ Fat Emulsion Intravenous 1,400 ml @ 58.333 mls/ hr TPN CONT 07/18/19 22:00 07/19/19 21:59 DC 07/18/19 21:47 58.333 MLS/HR Sodium Chloride 90 meq/Potassium Chloride 15 meq/ Potassium Phosphate 18 mmol/ Magnesium Sulfate 8 meq/Calcium Gluconate 15 meq/ Multivitamins 10 ml/Chromium/ Copper/Manganese/ Seleni/Zn 0.5 ml/ Insulin Human Regular 20 unit/ Total Parenteral Nutrition/Amino Acids/Dextrose/ Fat Emulsion Intravenous 1,400 ml @ 58.333 mls/ hr TPN CONT 07/21/19 22:00 07/22/19 21:59 DC 07/21/19 22:45 58.333 MLS/HR Sodium Chloride 90 meq/Potassium Chloride 15 meq/ Potassium Phosphate 18 mmol/ Magnesium Sulfate 8 meq/Calcium Gluconate 15 meq/ Multivitamins 10 ml/Chromium/ Copper/Manganese/ Seleni/Zn 0.5 ml/ Total Parenteral Nutrition/Amino Acids/Dextrose/ Fat Emulsion Intravenous 1,400 ml @ 58.333 mls/ hr TPN CONT 07/14/19 22:00 07/15/19 21:59 DC 07/14/19 22:00 58.333 MLS/HR Sodium Chloride 90 meq/Potassium Phosphate 15 mmol/ Magnesium Sulfate 12 meq/Calcium Gluconate 15 meq/ Multivitamins 10 ml/Chromium/ Copper/Manganese/ Seleni/Zn 0.5 ml/ Insulin Human Regular 30 unit/ Total Parenteral Nutrition/Amino Acids/Dextrose/ Fat Emulsion Intravenous 1,400 ml @ 58.333 mls/ hr TPN CONT 07/29/19 22:00 07/30/19 21:59 DC 07/29/19 21:49 58.333 MLS/HR Sodium Chloride 90 meq/Potassium Phosphate 15 mmol/ Magnesium Sulfate 12 meq/Calcium Gluconate 15 meq/ Multivitamins 10 ml/Chromium/ Copper/Manganese/ Seleni/Zn 0.5 ml/ Insulin Human Regular 40 unit/ Total Parenteral Nutrition/Amino Acids/Dextrose/ Fat Emulsion Intravenous 1,400 ml @ 58.333 mls/ hr TPN CONT 07/30/19 22:00 07/31/19 21:59 DC 07/30/19 21:21 58.333 MLS/HR Sodium Chloride 90 meq/Potassium Phosphate 19 mmol/ Magnesium Sulfate 12 meq/Calcium Gluconate 15 meq/ Multivitamins 10 ml/Chromium/ Copper/Manganese/ Seleni/Zn 0.5 ml/ Insulin Human Regular 40 unit/ Total Parenteral Nutrition/Amino Acids/Dextrose/ Fat Emulsion Intravenous 1,400 ml @ 58.333 mls/ hr TPN CONT 07/31/19 22:00 08/01/19 21:59 DC 07/31/19 21:54 58.333 MLS/HR Sodium Chloride 90 meq/Potassium Phosphate 5 mmol/ Magnesium Sulfate 12 meq/Calcium Gluconate 15 meq/ Multivitamins 10 ml/Chromium/ Copper/Manganese/ Seleni/Zn 0.5 ml/ Insulin Human Regular 30 unit/ Total Parenteral Nutrition/Amino Acids/Dextrose/ Fat Emulsion Intravenous 1,400 ml @ 58.333 mls/ hr TPN CONT 07/28/19 22:00 07/29/19 21:59 DC 07/28/19 22:08 58.333 MLS/HR Sodium Chloride 100 meq/Potassium Chloride 40 meq/ Magnesium Sulfate 15 meq/Calcium Gluconate 15 meq/ Multivitamins 10 ml/Chromium/ Copper/Manganese/ Seleni/Zn 0.5 ml/ Insulin Human Regular 35 unit/ Total Parenteral Nutrition/Amino Acids/Dextrose/ Fat Emulsion Intravenous 1,400 ml @ 58.333 mls/ hr TPN CONT 08/07/19 22:00 08/08/19 21:59 DC 08/07/19 22:46 58.333 MLS/HR Sodium Chloride 100 meq/Potassium Chloride 40 meq/ Magnesium Sulfate 20 meq/Calcium Gluconate 10 meq/ Multivitamins 10 ml/Chromium/ Copper/Manganese/ Seleni/Zn 0.5 ml/ Insulin Human Regular 35 unit/ Total Parenteral Nutrition/Amino Acids/Dextrose/ Fat Emulsion Intravenous 1,400 ml @ 58.333 mls/ hr TPN CONT 08/11/19 22:00 08/12/19 21:59 DC 08/12/19 00:06 58.333 MLS/HR Sodium Chloride 100 meq/Potassium Chloride 40 meq/ Magnesium Sulfate 20 meq/Calcium Gluconate 15 meq/ Multivitamins 10 ml/Chromium/ Copper/Manganese/ Seleni/Zn 0.5 ml/ Insulin Human Regular 35 unit/ Total Parenteral Nutrition/Amino Acids/Dextrose/ Fat Emulsion Intravenous 1,400 ml @ 58.333 mls/ hr TPN CONT 08/10/19 22:00 08/11/19 21:59 DC 08/10/19 22:27 58.333 MLS/HR Sodium Chloride 100 meq/Potassium Phosphate 10 mmol/ Magnesium Sulfate 12 meq/Calcium Gluconate 15 meq/ Multivitamins 10 ml/Chromium/ Copper/Manganese/ Seleni/Zn 0.5 ml/ Insulin Human Regular 35 unit/ Potassium Chloride 20 meq/ Total Parenteral Nutrition/Amino Acids/Dextrose/ Fat Emulsion Intravenous 1,400 ml @ 58.333 mls/ hr TPN CONT 08/04/19 22:00 08/05/19 21:59 DC 08/04/19 22:10 58.333 MLS/HR Sodium Chloride 100 meq/Potassium Phosphate 19 mmol/ Magnesium Sulfate 12 meq/Calcium Gluconate 15 meq/ Multivitamins 10 ml/Chromium/ Copper/Manganese/ Seleni/Zn 0.5 ml/ Insulin Human Regular 40 unit/ Potassium Chloride 20 meq/ Total Parenteral Nutrition/Amino Acids/Dextrose/ Fat Emulsion Intravenous 1,400 ml @ 58.333 mls/ hr TPN CONT 08/03/19 22:00 08/04/19 21:59 DC 08/03/19 21:20 58.333 MLS/HR Sodium Chloride 100 meq/Potassium Phosphate 5 mmol/ Magnesium Sulfate 12 meq/Calcium Gluconate 15 meq/ Multivitamins 10 ml/Chromium/ Copper/Manganese/ Seleni/Zn 0.5 ml/ Insulin Human Regular 35 unit/ Potassium Chloride 20 meq/ Total Parenteral Nutrition/Amino Acids/Dextrose/ Fat Emulsion Intravenous 1,400 ml @ 58.333 mls/ hr TPN CONT 08/05/19 22:00 08/06/19 21:59 DC 08/05/19 22:59 58.333 MLS/HR Succinylcholine Chloride (Anectine) 120 mg 1X ONCE 07/11/19 08:30 07/11/19 08:31 DC 07/11/19 08:34 120 MG Labs: Lab Laboratory Tests Test 08/14/19 17:28 08/15/19 00:41 08/15/19 04:30 Glucose (Fingerstick) 144 mg/dL (70-99) 134 mg/dL (70-99) White Blood Count 9.2 x10^3/uL (4.0-11.0) Red Blood Count 2.72 x10^6/uL (3.50-5.40) Hemoglobin 8.2 g/dL (12.0-15.5) Hematocrit 24.6 % (36.0-47.0) Mean Corpuscular Volume 90 fL (79-100) Mean Corpuscular Hemoglobin 30 pg (25-35) Mean Corpuscular Hemoglobin Concent 33 g/dL (31-37) Red Cell Distribution Width 18.4 % (11.5-14.5) Platelet Count 323 x10^3/uL (140-400) Neutrophils (%) (Auto) 78 % (31-73) Lymphocytes (%) (Auto) 15 % (24-48) Monocytes (%) (Auto) 6 % (0-9) Eosinophils (%) (Auto) 1 % (0-3) Basophils (%) (Auto) 0 % (0-3) Neutrophils # (Auto) 7.1 x10^3/uL (1.8-7.7) Lymphocytes # (Auto) 1.4 x10^3/uL (1.0-4.8) Monocytes # (Auto) 0.5 x10^3/uL (0.0-1.1) Eosinophils # (Auto) 0.1 x10^3/uL (0.0-0.7) Basophils # (Auto) 0.0 x10^3/uL (0.0-0.2) Sodium Level 149 mmol/L (136-145) Potassium Level 3.6 mmol/L (3.5-5.1) Chloride Level 111 mmol/L (98-107) Carbon Dioxide Level 30 mmol/L (21-32) Anion Gap 8 (6-14) Blood Urea Nitrogen 57 mg/dL (7-20) Creatinine 1.1 mg/dL (0.6-1.0) Estimated GFR (Cockcroft-Gault) 52.8 Glucose Level 123 mg/dL (70-99) Calcium Level 8.5 mg/dL (8.5-10.1) Creatine Kinase 24 U/L (26-192) Objective: Assessment: FEVER again Acute pancreatitis with persistent necrosis CT a/p 07/27 Increased ascites. 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 Leucocytosis improving JUANA,Hyperkalemia, Metabolic acidosis on HD Acute hypoxic resp failure ,bilateral pleural effusion and atelectasis hypocalcemia Prediabetes HTN s/p trach Plan: Plan of Care cont merrem (07/26), micafungin, and dapto Monitor for abx toxicities. zyvox changed to dapto (08/09), to rule out serotonin sy causing fever Maintain aspiration precautions D/w nursing Critically ill YUNIOR JONES MD Aug 15, 2019 13:07
[2019-08-15] MEDS: IV NORMAL SALINE 1000ML BAG 1,000 ML IV SCH (13:37)
[2019-08-15] MEDS: DAPTOmycin (GENERIC) IVPB 430 MG in IV NORMAL SALINE 50ML 50 ML IV SCH (13:41)
[2019-08-15] MEDS ORDERED: NALOXONE 0.4 MG/ML VIAL. IV PRN ×2 (13:45→14:30)
[2019-08-15] MEDS ORDERED: 0.9 % SODIUM CHLORIDE 10 ML DISP.SYRIN. IV PRN (13:45)
--- NOTE | 2019-08-15 13:45 | PDOC4 ---
OPERATIVE NOTE Date: Date: Aug 15, 2019 Pre-Op Diagnosis: Necrotizing pancreatitis Post-Op Diagnosis: same Procedure Performed: laparoscopic exploration Surgeon: Renzo Simms Asst: Dr. Arturo Harris Anesthesia Type: GETA plus local Blood Loss: 50 Specimans Obtained: cultures, debris Findings: 1000 cc ascites suctioned off, cultures sent, diffuse debris, obliteration of surgical planes preventing any meaningful exploration Complications: none Operative Note: After obtaining informed consent, patient was taken to OR, induced under GETA and prepped in the usual fashion. 5 mm port placed umbilical and right mid abdomen, all under laparoscopic guidance. Large amount of ascites encountered and aspirated off. Fluid was clear with some whitish debris. Viscera was completely locked in with obliteration of all planes, preventing any significant exploration. Copious irrigation. Given patient's overall clinical improvement, favor against open procedure and attempt at cholecystectomy and/or necrosectomy, given high risk of complications. Cholecystectomy will need to be performed, but favor waiting 3 months. 19 KAYLIN drain placed and secured with 3 0 nylon. Skin repaired with 4 0 monocryl. Dressing placed. Patient tolerated procedure well and sent to PACU in stable condition. All counts correct. Wound class is 4. DAVON SIMMS MD Aug 15, 2019 13:45
[2019-08-15] MEDS: PROCHLORPERAZINE 10 MG/2 ML VIAL. IV PRN (13:59)
[2019-08-15] MEDS: TPN PER PHARMACY MC PRN (14:03)
[2019-08-15] MEDS ORDERED: IV NORMAL SALINE 1000ML BAG 1,000 ML IV SCH (14:30)
[2019-08-15] MEDS ORDERED: HYDROmorphone STANDARD PCA 12 MG/30 ML SYRINGE. IV ONE (14:35)
[2019-08-15] MEDS: HYDROmorphone 12mg/30ml PCA 30 ML IV PRN (15:25)
[2019-08-15] MEDS ORDERED: [UNRECOGNIZED DRUG - OTHER] IV SCH ×9 (22:00)
[2019-08-15] MEDS ORDERED: DEXTROSE 70% IV SCH ×9 (22:00)
[2019-08-15] MEDS ORDERED: TOTAL PARENTERAL NUTRITION IV SCH ×9 (22:00)
[2019-08-15] MEDS ORDERED: AMINO ACID IV SCH ×9 (22:00)
[2019-08-15] MEDS: HEPARIN for SUB-Q USE 5,000 UNIT/ML VIAL. SQ SCH (22:02)
[2019-08-16] VITALS (24 sets, daily range): BP systolic 83–194; BP diastolic 43–101
[2019-08-16] MEDS: INSULIN LISPRO 300 UNITS/3 ML VIAL. SQ SCH ×5 (01:01→23:40)
[2019-08-16] MEDS: DEXMEDETOMIDINE 400 MCG in IV NORMAL SALINE 100ML 96 ML IV PRN ×7 (01:37→23:34)
[2019-08-16 07:12] LABS: BASO % 0 % (0-3); EOS % 0 % (0-3); HEMATOCRIT 37.5 % (36.0-47.0); HEMOGLOBIN 12.1 g/dL (12.0-15.5); LYMPH # 1.3 x10^3/uL (1.0-4.8); LYMPH % 20 % (24-48); MEAN CORPUSCULAR HEMOGLOBIN 29 pg (25-35); MEAN CORPUSCULAR HGB CONC 32 g/dL (31-37); MEAN CORPUSCULAR VOLUME 91 fL (79-100); MONO # 0.3 x10^3/uL (0.0-1.1); MONO % 5 % (0-9); NEUT # 4.7 x10^3/uL (1.8-7.7); NEUT % 74 % (31-73); PLATELET COUNT 267 x10^3/uL (140-400); RED BLOOD COUNT 4.12 x10^6/uL (3.50-5.40); RED CELL DISTRIBUTION WIDTH 18.3 % (11.5-14.5); WHITE BLOOD COUNT 6.3 x10^3/uL (4.0-11.0)
[2019-08-16 07:22] LABS: CALCIUM 8.8 mg/dL (8.5-10.1); CREATININE 0.9 mg/dL (0.6-1.0); GFR 66.5; POTASSIUM 3.9 mmol/L (3.5-5.1)
--- NOTE | 2019-08-16 08:05 | PDOC ---
PROGRESS NOTES Chief Complaint Chief Complaint Acute hypoxic Respiratory failure requiring mechanical ventilation (on vent since 07/10) Tracheostomy bilateral pleural effusions/pulm edema Sepsis Severe Acute gallstone pancreatitis (not a surgical candidate at this time) with necrosis Acute kidney failure now requiring dialysis Salpingitis Gallstones (Calculus of gallbladder with acute cholecystitis without obstruction) HTN Leukocytosis Hypoxia Uterine fibroid Intractable pain Intractable nausea Covid 19 negative. Acute on chronic anemia EEG: No seizure activity ESRD on HD Hyperglycemia History of Present Illness History of Present Illness Ms Diaz is a 48yo F w/ PMHx HTN, prediabetes who presented to the emergency room with complaints of abdominal pain on 07/04/2019. Found with Lipase 46996, AST 401, ALT 249, Bilirubin 1.4. CT abdomen confirms pancreatic inflammation, peripancreatic fluid and inflammatory changes around the pancreas consistent with pancreatitis. Cholelithiasis and 1.4cm uterine fibroid as well as possible left salpingitis. Admitted for further care GI, General surgery, ID, Pulm consulted. 07/04: PICC placed per IR. Renal US negative. Started on levophed. Repeat CT abdomen w/ necrosis; 07/05: Dialysis catheter per nephrology; 07/06: On BiPAP; 07/07: BiPAP, dialysis; 07/08: Overnight Tmax 101.7 , still on BiPAP FiO2 40%, still on low dose Levophed gtt, TPN initiated. On dialysis 07/24: Tracheostomy; 07/30: S/p tracheostomy on vent spontaneous respirations with 5 of pressure support 35% FiO2, rectal tube and a Lind, off pressors; 08/01:Still on vent via trach. Removed PICC and CVC LIJ and replaced. CT chest/abd/pelvis with bilateral pleural effusion and ascites. 08/02: Renal function stable. Still on vent. More interactive today. Miming wish for food. Plan discussed for thoracentesis/paracentesis with daughters today. They were under impression patient was doing worse due to a miscommunication which has been clarified over the phone. 4.3L removed. 08/04: Febrile overnight 101.8F. More interactive, still on vent. Asking for ice by miming; 08/05: Afebrile overnight. TMax last 24 hours 100.6F. Hb 7.1. Interactive when awake. 08/09: Transfusion 1u PRBC (6U total since admit) 08/10-08/13: TPN and precedex, vent. 08/14: Tmax 101F overnight. Hb 8.2. HD cath out since 08/11. Alert. On vent SIMV 35% FiO2. Surgery: ex-lap, no ronel or pancreatic necrosectomy 2/2 profound inflammation. Seen POD #1. Afebrile overnight. BUN 62. CBC WNL today.Remains on vent via trach, TPN. Able to point today and indicate she wishes her daughters and Jamaal to be involved in her care. Plan: Cont vent weaning, dialysis - will need replacement catheter Trach shield during day if ok with pulm. Would recommend ABG after 4 hours to r/o CO2 retention, however and still vent overnight Vitals Vitals Vital Signs Date Time Temp Pulse Resp B/P (MAP) Pulse Ox O2 Delivery O2 Flow Rate FiO2 08/16/19 07:42 98 Ventilator 08/16/19 04:00 98.7 76 18 119/76 (90) 98.7 Physical Exam Physical Exam GENERAL: Propped up in bed, sedated weak appearing HEENT: Pupils equal, + NGT, oral cavity dry NECK: Trach/vent LUNGS: rhonchi HEART: S1, S2, regular ABDOMEN: Distended, tender, hypoactive BS, drain placement (427 ) : Lind (08/01) EXTREMITIES: Generalized edema, no cyanosis, SCDs bilaterally DERMATOLOGIC: Warm and dry. No generalized rash. CENTRAL NERVOUS SYSTEM: Extremely weak, nods to few simple questions HDC has been removed LI (08/01) clean General: Alert, Cooperative, No acute distress Heart: Regular rate, Normal S1, Other (increased rate) Lungs: Crackles, Other (dimished in BLL nc at perrl nose clear neck trach site ok no lad no thyromegaly) Abdomen: Soft, Other (mild TTP) Extremities: Other (ANASARCA) Skin: Other (mottling noted to extremities ) Labs LABS Laboratory Tests Test 08/15/19 13:40 08/15/19 18:04 08/16/19 00:57 08/16/19 07:00 Glucose (Fingerstick) 163 mg/dL (70-99) 208 mg/dL (70-99) 208 mg/dL (70-99) White Blood Count 6.3 x10^3/uL (4.0-11.0) Red Blood Count 4.12 x10^6/uL (3.50-5.40) Hemoglobin 12.1 g/dL (12.0-15.5) Hematocrit 37.5 % (36.0-47.0) Mean Corpuscular Volume 91 fL (79-100) Mean Corpuscular Hemoglobin 29 pg (25-35) Mean Corpuscular Hemoglobin Concent 32 g/dL (31-37) Red Cell Distribution Width 18.3 % (11.5-14.5) Platelet Count 267 x10^3/uL (140-400) Neutrophils (%) (Auto) 74 % (31-73) Lymphocytes (%) (Auto) 20 % (24-48) Monocytes (%) (Auto) 5 % (0-9) Eosinophils (%) (Auto) 0 % (0-3) Basophils (%) (Auto) 0 % (0-3) Neutrophils # (Auto) 4.7 x10^3/uL (1.8-7.7) Lymphocytes # (Auto) 1.3 x10^3/uL (1.0-4.8) Monocytes # (Auto) 0.3 x10^3/uL (0.0-1.1) Eosinophils # (Auto) 0.0 x10^3/uL (0.0-0.7) Basophils # (Auto) 0.0 x10^3/uL (0.0-0.2) Sodium Level 150 mmol/L (136-145) Potassium Level 3.9 mmol/L (3.5-5.1) Chloride Level 111 mmol/L (98-107) Carbon Dioxide Level 28 mmol/L (21-32) Anion Gap 11 (6-14) Blood Urea Nitrogen 63 mg/dL (7-20) Creatinine 0.9 mg/dL (0.6-1.0) Estimated GFR (Cockcroft-Gault) 66.5 Glucose Level 162 mg/dL (70-99) Calcium Level 8.8 mg/dL (8.5-10.1) Iron Level 23 ug/dL (50-170) Total Iron Binding Capacity 76 ug/dL (250-450) Iron Saturation 30 % (15-34) Assessment and Plan Assessmemt and Plan Problems Medical Problems: (1) Acute pancreatitis Status: Acute (2) Cholelithiasis Status: Acute Comment Review of Relevant I have reviewed the following items kolby (where applicable) has been applied. Labs Laboratory Tests Test 08/14/19 12:09 08/14/19 17:28 08/15/19 00:41 08/15/19 04:30 Glucose (Fingerstick) 148 mg/dL (70-99) 144 mg/dL (70-99) 134 mg/dL (70-99) White Blood Count 9.2 x10^3/uL (4.0-11.0) Red Blood Count 2.72 x10^6/uL (3.50-5.40) Hemoglobin 8.2 g/dL (12.0-15.5) Hematocrit 24.6 % (36.0-47.0) Mean Corpuscular Volume 90 fL (79-100) Mean Corpuscular Hemoglobin 30 pg (25-35) Mean Corpuscular Hemoglobin Concent 33 g/dL (31-37) Red Cell Distribution Width 18.4 % (11.5-14.5) Platelet Count 323 x10^3/uL (140-400) Neutrophils (%) (Auto) 78 % (31-73) Lymphocytes (%) (Auto) 15 % (24-48) Monocytes (%) (Auto) 6 % (0-9) Eosinophils (%) (Auto) 1 % (0-3) Basophils (%) (Auto) 0 % (0-3) Neutrophils # (Auto) 7.1 x10^3/uL (1.8-7.7) Lymphocytes # (Auto) 1.4 x10^3/uL (1.0-4.8) Monocytes # (Auto) 0.5 x10^3/uL (0.0-1.1) Eosinophils # (Auto) 0.1 x10^3/uL (0.0-0.7) Basophils # (Auto) 0.0 x10^3/uL (0.0-0.2) Sodium Level 149 mmol/L (136-145) Potassium Level 3.6 mmol/L (3.5-5.1) Chloride Level 111 mmol/L (98-107) Carbon Dioxide Level 30 mmol/L (21-32) Anion Gap 8 (6-14) Blood Urea Nitrogen 57 mg/dL (7-20) Creatinine 1.1 mg/dL (0.6-1.0) Estimated GFR (Cockcroft-Gault) 52.8 Glucose Level 123 mg/dL (70-99) Calcium Level 8.5 mg/dL (8.5-10.1) Creatine Kinase 24 U/L (26-192) Test 08/15/19 13:40 08/15/19 18:04 08/16/19 00:57 08/16/19 07:00 Glucose (Fingerstick) 163 mg/dL (70-99) 208 mg/dL (70-99) 208 mg/dL (70-99) White Blood Count 6.3 x10^3/uL (4.0-11.0) Red Blood Count 4.12 x10^6/uL (3.50-5.40) Hemoglobin 12.1 g/dL (12.0-15.5) Hematocrit 37.5 % (36.0-47.0) Mean Corpuscular Volume 91 fL (79-100) Mean Corpuscular Hemoglobin 29 pg (25-35) Mean Corpuscular Hemoglobin Concent 32 g/dL (31-37) Red Cell Distribution Width 18.3 % (11.5-14.5) Platelet Count 267 x10^3/uL (140-400) Neutrophils (%) (Auto) 74 % (31-73) Lymphocytes (%) (Auto) 20 % (24-48) Monocytes (%) (Auto) 5 % (0-9) Eosinophils (%) (Auto) 0 % (0-3) Basophils (%) (Auto) 0 % (0-3) Neutrophils # (Auto) 4.7 x10^3/uL (1.8-7.7) Lymphocytes # (Auto) 1.3 x10^3/uL (1.0-4.8) Monocytes # (Auto) 0.3 x10^3/uL (0.0-1.1) Eosinophils # (Auto) 0.0 x10^3/uL (0.0-0.7) Basophils # (Auto) 0.0 x10^3/uL (0.0-0.2) Sodium Level 150 mmol/L (136-145) Potassium Level 3.9 mmol/L (3.5-5.1) Chloride Level 111 mmol/L (98-107) Carbon Dioxide Level 28 mmol/L (21-32) Anion Gap 11 (6-14) Blood Urea Nitrogen 63 mg/dL (7-20) Creatinine 0.9 mg/dL (0.6-1.0) Estimated GFR (Cockcroft-Gault) 66.5 Glucose Level 162 mg/dL (70-99) Calcium Level 8.8 mg/dL (8.5-10.1) Iron Level 23 ug/dL (50-170) Total Iron Binding Capacity 76 ug/dL (250-450) Iron Saturation 30 % (15-34) Laboratory Tests Test 08/15/19 13:40 08/15/19 18:04 08/16/19 00:57 08/16/19 07:00 Glucose (Fingerstick) 163 mg/dL (70-99) 208 mg/dL (70-99) 208 mg/dL (70-99) White Blood Count 6.3 x10^3/uL (4.0-11.0) Red Blood Count 4.12 x10^6/uL (3.50-5.40) Hemoglobin 12.1 g/dL (12.0-15.5) Hematocrit 37.5 % (36.0-47.0) Mean Corpuscular Volume 91 fL (79-100) Mean Corpuscular Hemoglobin 29 pg (25-35) Mean Corpuscular Hemoglobin Concent 32 g/dL (31-37) Red Cell Distribution Width 18.3 % (11.5-14.5) Platelet Count 267 x10^3/uL (140-400) Neutrophils (%) (Auto) 74 % (31-73) Lymphocytes (%) (Auto) 20 % (24-48) Monocytes (%) (Auto) 5 % (0-9) Eosinophils (%) (Auto) 0 % (0-3) Basophils (%) (Auto) 0 % (0-3) Neutrophils # (Auto) 4.7 x10^3/uL (1.8-7.7) Lymphocytes # (Auto) 1.3 x10^3/uL (1.0-4.8) Monocytes # (Auto) 0.3 x10^3/uL (0.0-1.1) Eosinophils # (Auto) 0.0 x10^3/uL (0.0-0.7) Basophils # (Auto) 0.0 x10^3/uL (0.0-0.2) Sodium Level 150 mmol/L (136-145) Potassium Level 3.9 mmol/L (3.5-5.1) Chloride Level 111 mmol/L (98-107) Carbon Dioxide Level 28 mmol/L (21-32) Anion Gap 11 (6-14) Blood Urea Nitrogen 63 mg/dL (7-20) Creatinine 0.9 mg/dL (0.6-1.0) Estimated GFR (Cockcroft-Gault) 66.5 Glucose Level 162 mg/dL (70-99) Calcium Level 8.8 mg/dL (8.5-10.1) Iron Level 23 ug/dL (50-170) Total Iron Binding Capacity 76 ug/dL (250-450) Iron Saturation 30 % (15-34) Microbiology 08/03/19 Aerobic and Anaerobic Culture - Final, Complete 08/03/19 Anaerobic Culture Result 1 (ALEXANDRA) - Final, Complete 08/03/19 Aerobic Culture - Final, Complete 08/03/19 Aerobic Culture Result 1 (ALEXANDRA) - Final, Complete 08/03/19 Gram Stain - Final, Complete 08/03/19 Gram Stain Result 1 (ALEXANDRA) - Final, Complete 08/03/19 Gram Stain Result 2 (ALEXANDRA) - Final, Complete 08/02/19 Blood Culture - Final, Complete NO GROWTH AFTER 5 DAYS 07/31/19 Urine Culture - Final, Complete 07/31/19 Urine Culture Result 1 (ALEXANDRA) - Final, Complete Medications Current Medications Sodium Chloride 1,000 ml @ 1,000 mls/hr Q1H IV Last administered on 07/04/19at 03:00; Start 07/04/19 at 03:00; Stop 07/04/19 at 03:59; Status DC Ondansetron HCl (Zofran) 4 mg 1X ONCE IVP Last administered on 07/04/19at 03:27; Start 07/04/19 at 03:00; Stop 07/04/19 at 03:01; Status DC Morphine Sulfate (Morphine Sulfate) 4 mg 1X ONCE IV ; Start 07/04/19 at 03:00; Stop 07/04/19 at 03:01; Status Cancel Ketorolac Tromethamine (Toradol 30mg Vial) 30 mg 1X ONCE IV Last administered on 07/04/19at 02:54; Start 07/04/19 at 03:00; Stop 07/04/19 at 03:01; Status DC Fentanyl Citrate (Fentanyl 2ml Vial) 25 mcg 1X ONCE IVP Last administered on 07/04/19at 03:23; Start 07/04/19 at 03:30; Stop 07/04/19 at 03:31; Status DC Fentanyl Citrate (Fentanyl 2ml Vial) 100 mcg STK-MED ONCE .ROUTE ; Start 07/04/19 at 03:18; Stop 07/04/19 at 03:18; Status DC Iohexol (Omnipaque 350 Mg/ml) 90 ml 1X ONCE IV Last administered on 07/04/19at 03:25; Start 07/04/19 at 03:30; Stop 07/04/19 at 03:31; Status DC Info (CONTRAST GIVEN -- Rx MONITORING) 1 each PRN DAILY PRN MC SEE COMMENTS; Start 07/04/19 at 03:30; Stop 07/06/19 at 03:29; Status DC Hydromorphone HCl (Dilaudid) 0.5 mg 1X ONCE IV Last administered on 07/04/19at 03:55; Start 07/04/19 at 04:30; Stop 07/04/19 at 04:32; Status DC Ondansetron HCl (Zofran) 4 mg PRN Q8HRS PRN IV NAUSEA/VOMITING 1ST CHOICE; Start 07/04/19 at 05:00; Stop 07/04/19 at 09:27; Status DC Morphine Sulfate (Morphine Sulfate) 2 mg PRN Q2HR PRN IV SEVERE PAIN 7-10 Last administered on 07/05/19at 12:26; Start 07/04/19 at 05:00; Stop 07/05/19 at 14:15; Status DC Sodium Chloride 1,000 ml @ 125 mls/hr Q8H IV Last administered on 07/04/19at 20:56; Start 07/04/19 at 05:00; Stop 07/05/19 at 04:59; Status DC Hydromorphone HCl (Dilaudid) 0.5 mg PRN Q3HRS PRN IV SEVERE PAIN 7-10 Last administered on 07/05/19at 10:06; Start 07/04/19 at 05:00; Stop 07/05/19 at 12:0 1; Status DC Piperacillin Sod/ Tazobactam Sod 4.5 gm/Sodium Chloride 100 ml @ 200 mls/hr 1X ONCE IV Last administered on 07/04/19at 05:44; Start 07/04/19 at 06:00; Stop 07/04/19 at 06:29; Status DC Ondansetron HCl (Zofran) 4 mg PRN Q4HRS PRN IV NAUSEA/VOMITING 1ST CHOICE Last administered on 08/12/19at 11:01; Start 07/04/19 at 09:30 Insulin Human Lispro (HumaLOG) 0-9 UNITS Q6HRS SQ Last administered on 08/16/19at 01:01; Start 07/04/19 at 09:30 Dextrose (Dextrose 50%-Water Syringe) 12.5 gm PRN Q15MIN PRN IV SEE COMMENTS; Start 07/04/19 at 09:30 Pantoprazole Sodium (PROTONIX VIAL for IV PUSH) 40 mg DAILYAC IVP Last administered on 08/15/19at 08:08; Start 07/04/19 at 11:30 Prochlorperazine Edisylate (Compazine) 10 mg PRN Q6HRS PRN IV NAUSEA/VOMITING, 2nd CHOICE Last administered on 08/15/19at 13:59; Start 07/04/19 at 17:45 Atenolol (Tenormin) 100 mg DAILY PO ; Start 07/05/19 at 09:00; Stop 07/04/19 at 20:08; Status DC Metoprolol Tartrate (Lopressor Vial) 2.5 mg Q6HRS IVP Last administered on 07/05/19at 05:51; Start 07/04/19 at 20:15; Stop 07/05/19 at 10:02; Status DC Metoprolol Tartrate (Lopressor Vial) 5 mg Q6HRS IVP Last administered on 07/14/19at 00:12; Start 07/05/19 at 10:15; Stop 07/16/19 at 08:48; Status DC Hydromorphone HCl (Dilaudid) 1 mg PRN Q3HRS PRN IV SEVERE PAIN 7-10 Last administered on 07/11/19at 05:13; Start 07/05/19 at 12:00; Stop 07/19/19 at 00:25; Status DC Lidocaine HCl (Buffered Lidocaine 1%) 3 ml STK-MED ONCE .ROUTE ; Start 07/05/19 at 12:55; Stop 07/05/19 at 12:56; Status DC Albumin Human 500 ml @ 125 mls/hr 1X ONCE IV Last administered on 07/05/19at 14:33; Start 07/05/19 at 14:30; Stop 07/05/19 at 18:32; Status DC Norepinephrine Bitartrate 8 mg/ Dextrose 258 ml @ 17.299 mls/ hr CONT PRN IV PER PROTOCOL Last administered on 08/02/19at 12:48; Start 07/05/19 at 15:30; Stop 08/05/19 at 09:19; Status DC Sodium Chloride 1,000 ml @ 125 mls/hr Q8H IV Last administered on 07/05/19at 21:04; Start 07/05/19 at 16:00; Stop 07/06/19 at 02:42; Status DC Albumin Human 500 ml @ 125 mls/hr PRN BID PRN IV After every 2L NSS & BP < 90mm Last administered on 07/20/19at 14:21; Start 07/05/19 at 16:00 Iohexol (Omnipaque 300 Mg/ml) 60 ml 1X ONCE IV Last administered on 07/05/19at 17:20; Start 07/05/19 at 17:00; Stop 07/05/19 at 17:01; Status DC Info (CONTRAST GIVEN -- Rx MONITORING) 1 each PRN DAILY PRN MC SEE COMMENTS; Start 07/05/19 at 17:00; Stop 07/07/19 at 16:59; Status DC Meropenem 1 gm/ Sodium Chloride 100 ml @ 200 mls/hr Q8HRS IV Last administered on 07/06/19at 05:45; Start 07/05/19 at 20:00; Stop 07/06/19 at 08:48; Status DC Furosemide (Lasix) 40 mg 1X ONCE IVP Last administered on 07/05/19at 22:12; Start 07/05/19 at 22:30; Stop 07/05/19 at 22:31; Status DC Calcium Chloride 1000 mg/Sodium Chloride 110 ml @ 220 mls/hr 1X ONCE IV Last administered on 07/05/19at 22:11; Start 07/05/19 at 22:30; Stop 07/05/19 at 22:59; Status DC Albuterol Sulfate (Ventolin Neb Soln) 2.5 mg 1X ONCE NEB Last administered on 07/06/19at 00:56; Start 07/05/19 at 22:30; Stop 07/05/19 at 22:31; Status DC Insulin Human Regular (HumuLIN R VIAL) 5 unit 1X ONCE IV Last administered on 07/05/19at 22:14; Start 07/05/19 at 22:30; Stop 07/05/19 at 22:31; Status DC Magnesium Sulfate 50 ml @ 25 mls/hr 1X ONCE IV Last administered on 07/06/19at 02:57; Start 07/06/19 at 03:00; Stop 07/06/19 at 04:59; Status DC Calcium Gluconate 1000 mg/Sodium Chloride 110 ml @ 220 mls/hr 1X ONCE IV Last administered on 07/06/19at 02:46; Start 07/06/19 at 03:00; Stop 07/06/19 at 03:29; Status DC Sodium Chloride 1,000 ml @ 200 mls/hr Q5H IV Last administered on 07/06/19at 02:46; Start 07/06/19 at 03:00; Stop 07/06/19 at 10:21; Status DC Calcium Gluconate 1000 mg/Sodium Chloride 110 ml @ 220 mls/hr 1X ONCE IV Last administered on 07/06/19at 03:21; Start 07/06/19 at 03:30; Stop 07/06/19 at 03:59; Status DC Sodium Bicarbonate 50 meq/Sodium Chloride 1,050 ml @ 75 mls/hr Q14H IV Last administered on 07/10/19at 21:10; Start 07/06/19 at 07:30; Stop 07/11/19 at 10:28; Status DC Calcium Gluconate 2000 mg/Sodium Chloride 120 ml @ 220 mls/hr 1X ONCE IV Last administered on 07/06/19at 09:05; Start 07/06/19 at 07:30; Stop 07/06/19 at 08:02; Status DC Lidocaine HCl (Xylocaine-Mpf 1% 2ml Vial) 2 ml STK-MED ONCE .ROUTE ; Start 07/06/19 at 08:47; Stop 07/06/19 at 08:47; Status DC Meropenem 500 mg/ Sodium Chloride 50 ml @ 100 mls/hr Q12HR IV Last administered on 07/11/19at 21:01; Start 07/06/19 at 18:00; Stop 07/12/19 at 07:58; Status DC Lidocaine HCl (Buffered Lidocaine 1%) 3 ml STK-MED ONCE .ROUTE ; Start 07/06/19 at 09:46; Stop 07/06/19 at 09:46; Status DC Lidocaine HCl (Buffered Lidocaine 1%) 6 ml 1X ONCE INJ Last administered on 07/06/19at 10:26; Start 07/06/19 at 10:15; Stop 07/06/19 at 10:16; Status DC Info (Tpn Per Pharmacy) 1 each PRN DAILY PRN MC SEE COMMENTS Last administered on 08/15/19at 14:03; Start 07/06/19 at 12:00 Sodium Chloride 1,000 ml @ 1,000 mls/hr Q1H PRN IV hypotension; Start 07/06/19 at 12:07; Stop 07/06/19 at 18:06; Status DC Diphenhydramine HCl (Benadryl) 25 mg 1X PRN PRN IV ITCHING; Start 07/06/19 at 12:15; Stop 07/07/19 at 12:14; Status DC Diphenhydramine HCl (Benadryl) 25 mg 1X PRN PRN IV ITCHING; Start 07/06/19 at 12:15; Stop 07/07/19 at 12:14; Status DC Sodium Chloride 1,000 ml @ 400 mls/hr Q2H30M PRN IV PATENCY; Start 07/06/19 at 12:07; Stop 07/07/19 at 00:06; Status DC Info (PHARMACY MONITORING -- do not chart) 1 each PRN DAILY PRN MC SEE COMMENTS; Start 07/06/19 at 12:15; Stop 07/08/19 at 08:13; Status DC Sodium Chloride 90 meq/Calcium Gluconate 10 meq/ Multivitamins 10 ml/Chromium/ Copper/Manganese/ Seleni/Zn 1 ml/ Total Parenteral Nutrition/Amino Acids/Dextrose/ Fat Emulsion Intravenous 55.005 ml @ 2.292 mls/hr TPN CONT IV ; Start 07/06/19 at 22:00; Stop 07/06/19 at 12:33; Status DC Info (Tpn Per Pharmacy) 1 each PRN DAILY PRN MC SEE COMMENTS; Start 07/06/19 at 12:30; Status UNV Sodium Chloride 90 meq/Calcium Gluconate 10 meq/ Multivitamins 10 ml/Chromium/ Copper/Manganese/ Seleni/Zn 0.5 ml/ Total Parenteral Nutrition/Amino Acids/Dextrose/ Fat Emulsion Intravenous 1,512 ml @ 63 mls/hr TPN CONT IV Last administered on 07/06/19at 22:06; Start 07/06/19 at 22:00; Stop 07/07/19 at 21:59; Status DC Calcium Carbonate/ Glycine (Tums) 500 mg PRN AFTMEALHC PRN PO INDIGESTION; Start 07/06/19 at 17:45 Calcium Gluconate (Calcium Gluconate) 2,000 mg 1X ONCE IVP Last administered on 07/07/19at 02:19; Start 07/07/19 at 02:15; Stop 07/07/19 at 02:16; Status DC Calcium Chloride 3000 mg/Sodium Chloride 1,030 ml @ 50 mls/hr [id number] IV Last administered on 07/09/19at 02:17; Start 07/07/19 at 08:00; Stop 07/09/19 at 15:23; Status DC Lorazepam (Ativan Inj) 1 mg PRN Q4HRS PRN IVP ANXIETY / AGITATION, 2nd choic Last administered on 08/05/19at 03:51; Start 07/07/19 at 09:00; Stop 08/05/19 at 09:19; Status DC Sodium Chloride 1,000 ml @ 1,000 mls/hr Q1H PRN IV hypotension; Start 07/07/19 at 08:56; Stop 07/07/19 at 14:55; Status DC Albumin Human 200 ml @ 200 mls/hr 1X PRN PRN IV Hypotension; Start 07/07/19 at 09:00; Stop 07/07/19 at 14:59; Status DC Diphenhydramine HCl (Benadryl) 25 mg 1X PRN PRN IV ITCHING; Start 07/07/19 at 09:00; Stop 07/08/19 at 08:59; Status DC Diphenhydramine HCl (Benadryl) 25 mg 1X PRN PRN IV ITCHING; Start 07/07/19 at 09:00; Stop 07/08/19 at 08:59; Status DC Sodium Chloride 1,000 ml @ 400 mls/hr Q2H30M PRN IV PATENCY; Start 07/07/19 at 08:56; Stop 07/07/19 at 20:55; Status DC Info (PHARMACY MONITORING -- do not chart) 1 each PRN DAILY PRN MC SEE COMMENTS; Start 07/07/19 at 09:00; Status UNV Info (PHARMACY MONITORING -- do not chart) 1 each PRN DAILY PRN MC SEE COMMENTS; Start 07/07/19 at 09:00; Stop 07/08/19 at 08:13; Status DC Digoxin (Lanoxin) 500 mcg 1X ONCE IV Last administered on 07/07/19at 10:04; St art 07/07/19 at 10:00; Stop 07/07/19 at 10:01; Status DC Digoxin (Lanoxin) 125 mcg 1X ONCE IV Last administered on 07/07/19at 17:10; Start 07/07/19 at 18:00; Stop 07/07/19 at 18:01; Status DC Magnesium Sulfate 100 ml @ 25 mls/hr 1X ONCE IV Last administered on 07/07/19at 12:48; Start 07/07/19 at 13:00; Stop 07/07/19 at 16:59; Status DC Sodium Chloride 90 meq/Magnesium Sulfate 10 meq/ Calcium Gluconate 20 meq/ Multivitamins 10 ml/Chromium/ Copper/Manganese/ Seleni/Zn 0.5 ml/ Total Parenteral Nutrition/Amino Acids/Dextrose/ Fat Emulsion Intravenous 1,512 ml @ 63 mls/hr TPN CONT IV Last administered on 07/07/19at 22:25; Start 07/07/19 at 22:00; Stop 07/08/19 at 21:59; Status DC Sodium Chloride 1,000 ml @ 1,000 mls/hr Q1H PRN IV hypotension; Start 07/08/19 at 08:05; Stop 07/08/19 at 14:04; Status DC Albumin Human 200 ml @ 200 mls/hr 1X ONCE IV Last administered on 07/08/19at 08:57; Start 07/08/19 at 08:15; Stop 07/08/19 at 09:14; Status DC Diphenhydramine HCl (Benadryl) 25 mg 1X PRN PRN IV ITCHING; Start 07/08/19 at 08:15; Stop 07/09/19 at 08:14; Status DC Diphenhydramine HCl (Benadryl) 25 mg 1X PRN PRN IV ITCHING; Start 07/08/19 at 08:15; Stop 07/09/19 at 08:14; Status DC Sodium Chloride 1,000 ml @ 400 mls/hr Q2H30M PRN IV PATENCY; Start 07/08/19 at 08:05; Stop 07/08/19 at 20:04; Status DC Info (PHARMACY MONITORING -- do not chart) 1 each PRN DAILY PRN MC SEE COMMENTS; Start 07/08/19 at 08:15; Stop 07/12/19 at 07:57; Status DC Sodium Chloride 90 meq/Potassium Chloride 15 meq/ Potassium Phosphate 10 mmol/ Magnesium Sulfate 10 meq/Calcium Gluconate 20 meq/ Multivitamins 10 ml/Chromium/ Copper/Manganese/ Seleni/Zn 0.5 ml/ Total Parenteral Nutrition/Amino Acids/Dextrose/ Fat Emulsion Intravenous 1,512 ml @ 63 mls/hr TPN CONT IV Last administered on 07/08/19at 21:01; Start 07/08/19 at 22:00; Stop 07/09/19 at 21:59; Status DC Potassium Chloride/Water 100 ml @ 100 mls/hr 1X ONCE IV Last administered on 07/08/19at 14:09; Start 07/08/19 at 14:00; Stop 07/08/19 at 14:59; Status DC Benzocaine (Hurricaine One) 1 spray 1X ONCE MM Last administered on 07/08/19at 16:38; Start 07/08/19 at 14:30; Stop 07/08/19 at 14:31; Status DC Lidocaine HCl (Glydo (Lidocaine) Jelly) 1 ramu 1X ONCE MM Last administered on 07/08/19at 16:38; Start 07/08/19 at 14:30; Stop 07/08/19 at 14:31; Status DC Linezolid/Dextrose 300 ml @ 300 mls/hr Q12HR IV Last administered on 07/14/19at 21:04; Start 07/08/19 at 20:00; Stop 07/15/19 at 07:50; Status DC Acetaminophen (Tylenol) 650 mg PRN Q6HRS PRN PO MILD PAIN / TEMP; Start 07/08 at 03:30; Stop 07/09/19 at 03:36; Status DC Acetaminophen (Tylenol) 650 mg PRN Q6HRS PRN PEG MILD PAIN / TEMP Last adminis tered on 08/04/19at 19:56; Start 07/09/19 at 03:36 Sodium Chloride 1,000 ml @ 1,000 mls/hr Q1H PRN IV hypotension; Start 07/09/19 at 07:50; Stop 07/09/19 at 13:49; Status DC Albumin Human 200 ml @ 200 mls/hr 1X PRN PRN IV Hypotension; Start 07/09/19 at 08:00; Stop 07/09/19 at 13:59; Status DC Sodium Chloride (Normal Saline Flush) 10 ml 1X PRN PRN IV AP catheter pack; Start 07/09/19 at 08:00; Stop 07/10/19 at 07:59; Status DC Sodium Chloride (Normal Saline Flush) 10 ml 1X PRN PRN IV [employer] catheter pack; Start 07/09/19 at 08:00; Stop 07/10/19 at 07:59; Status DC Sodium Chloride 1,000 ml @ 400 mls/hr Q2H30M PRN IV PATENCY; Start 07/09/19 at 07:50; Stop 07/09/19 at 19:49; Status DC Info (PHARMACY MONITORING -- do not chart) 1 each PRN DAILY PRN MC SEE CO MMENTS; Start 07/09/19 at 08:00; Status UNV Info (PHARMACY MONITORING -- do not chart) 1 each PRN DAILY PRN MC SEE COMMENTS; Start 07/09/19 at 08:00; Stop 07/11/19 at 08:25; Status DC Sodium Chloride 90 meq/Potassium Chloride 15 meq/ Potassium Phosphate 10 mmol/ Magnesium Sulfate 10 meq/Calcium Gluconate 20 meq/ Multivitamins 10 ml/Chromium/ Copper/Manganese/ Seleni/Zn 0.5 ml/ Total Parenteral Nutrition/Amino Acids/Dextrose/ Fat Emulsion Intravenous 1,512 ml @ 63 mls/hr TPN CONT IV Last administered on 07/09/19at 20:57; Start 07/09/19 at 22:00; Stop 07/10/19 at 21:59; Status DC Sodium Chloride 90 meq/Potassium Chloride 15 meq/ Potassium Phosphate 15 mmol/ Magnesium Sulfate 10 meq/Calcium Gluconate 20 meq/ Multivitamins 10 ml/Chromium/ Copper/Manganese/ Seleni/Zn 0.5 ml/ Total Parenteral Nutrition/Amino Acids/Dextrose/ Fat Emulsion Intravenous 1,512 ml @ 63 mls/hr TPN CONT IV ; Start 07/10/19 at 22:00; Stop 07/10/19 at 14:16; Status DC Sodium Chloride 90 meq/Potassium Chloride 15 meq/ Potassium Phosphate 15 mmol/ Magnesium Sulfate 10 meq/Calcium Gluconate 20 meq/ Multivitamins 10 ml/Chromium/ Copper/Manganese/ Seleni/Zn 0.5 ml/ Total Parenteral Nutrition/Amino Acids/Dextrose/ Fat Emulsion Intravenous 1,200 ml @ 50 mls/hr TPN CONT IV ; Start 07/10/19 at 22:00; Stop 07/10/19 at 14:17; Status DC Sodium Chloride 90 meq/Potassium Chloride 15 meq/ Potassium Phosphate 10 mmol/ Magnesium Sulfate 10 meq/Calcium Gluconate 20 meq/ Multivitamins 10 ml/Chromium/ Copper/Manganese/ Seleni/Zn 0.5 ml/ Total Parenteral Nutrition/Amino Acids/Dextrose/ Fat Emulsion Intravenous 1,200 ml @ 50 mls/hr TPN CONT IV Last administered on 07/10/19at 23:29; Start 07/10/19 at 22:00; Stop 07/11/19 at 21:59; Status DC Sodium Chloride 1,000 ml @ 1,000 mls/hr Q1H PRN IV hypotension; Start 07/11/19 at 07:28; Stop 07/11/19 at 13:27; Status DC Albumin Human 200 ml @ 200 mls/hr 1X ONCE IV Last administered on 07/11/19at 08:51; Start 07/11/19 at 07:30; Stop 07/11/19 at 08:29; Status DC Diphenhydramine HCl (Benadryl) 25 mg 1X PRN PRN IV ITCHING; Start 07/11/19 at 07:30; Stop 07/12/19 at 07:29; Status DC Diphenhydramine HCl (Benadryl) 25 mg 1X PRN PRN IV ITCHING; Start 07/11/19 at 07:30; Stop 07/12/19 at 07:29; Status DC Sodium Chloride 1,000 ml @ 400 mls/hr Q2H30M PRN IV PATENCY; Start 07/11/19 at 07:28; Stop 07/11/19 at 19:27; Status DC Info (PHARMACY MONITORING -- do not chart) 1 each PRN DAILY PRN MC SEE COMMENTS; Start 07/11/19 at 07:30; Stop 07/22/19 at 13:01; Status DC Metronidazole 100 ml @ 100 mls/hr Q6HRS IV Last administered on 07/27/19at 06:26; Start 07/11/19 at 08:30; Stop 07/27/19 at 09:58; Status DC Micafungin Sodium 100 mg/Dextrose 100 ml @ 100 mls/hr Q24H IV Last administered on 08/15/19at 08:09; Start 07/11/19 at 09:00 Propofol 0 ml @ As Directed STK-MED ONCE IV ; Start 07/11/19 at 07:53; Stop 07/11/19 at 07:53; Status DC Etomidate (Amidate) 20 mg STK-MED ONCE IV ; Start 07/11/19 at 07:53; Stop 07/11/19 at 07:54; Status DC Midazolam HCl (Versed) 5 mg STK-MED ONCE .ROUTE ; Start 07/11/19 at 07:57; Stop 07/11/19 at 07:57; Status DC Fentanyl Citrate 30 ml @ 0 mls/hr CONT PRN IV SEE PROTOCOL Last administered on 08/05/19at 06:12; Start 07/11/19 at 08:15; Stop 08/05/19 at 09:19; Status DC Artificial Tears (Artificial Tears) 1 drop PRN Q1HR PRN OU DRY EYE, 1st choice; Start 07/11/19 at 08:15 Midazolam HCl 50 mg/Sodium Chloride 50 ml @ 0 mls/hr CONT PRN IV SEE PROTOCOL Last administered on 07/14/19at 22:39; Start 07/11/19 at 08:15; Stop 07/16/19 at 15:59; Status DC Etomidate (Amidate) 8 mg 1X ONCE IV Last administered on 07/11/19at 08:33; Start 07/11/19 at 08:30; Stop 07/11/19 at 08:31; Status DC Succinylcholine Chloride (Anectine) 120 mg 1X ONCE IV Last administered on 07/11/19at 08:34; Start 07/11/19 at 08:30; Stop 07/11/19 at 08:31; Status DC Midazolam HCl (Versed) 5 mg 1X ONCE IV ; Start 07/11/19 at 08:30; Stop 07/11/19 at 08:31; Status DC Potassium Chloride 15 meq/ Bicarbonate Dialysis Soln w/ out KCl 5,007.5 ml @ 1,000 mls/ hr Q5H1M IV Last administered on 07/12/19at 11:11; Start 07/11/19 at 12:00; Stop 07/12/19 at 11:15; Status DC Potassium Chloride 15 meq/ Bicarbonate Dialysis Soln w/ out KCl 5,007.5 ml @ 1,000 mls/ hr Q5H1M IV Last administered on 07/12/19at 11:12; Start 07/11/19 at 12:00; Stop 07/12/19 at 11:17; Status DC Potassium Chloride 15 meq/ Bicarbonate Dialysis Soln w/ out KCl 5,007.5 ml @ 1,000 mls/ hr Q5H1M IV Last administered on 07/12/19at 11:11; Start 07/11/19 at 12:00; Stop 07/12/19 at 11:19; Status DC Sodium Chloride 90 meq/Potassium Chloride 15 meq/ Potassium Phosphate 10 mmol/ Magnesium Sulfate 10 meq/Calcium Gluconate 20 meq/ Multivitamins 10 ml/Chromium/ Copper/Manganese/ Seleni/Zn 0.5 ml/ Total Parenteral Nutrition/Amino Acids/Dextrose/ Fat Emulsion Intravenous 1,400 ml @ 58.333 mls/ hr TPN CONT IV Last administered on 07/11/19at 21:42; Start 07/11/19 at 22:00; Stop 07/12/19 at 21:59; Status DC Heparin Sodium (Porcine) (Heparin Sodium) 5,000 unit Q8HRS SQ Last administered on 07/16/19at 05:55; Start 07/11/19 at 15:00; Stop 07/16/19 at 13:28; Status DC Meropenem 500 mg/ Sodium Chloride 50 ml @ 100 mls/hr Q6HRS IV Last administered on 07/13/19at 06:00; Start 07/12/19 at 09:00; Stop 07/13/19 at 07:29; Status DC Potassium Phosphate 20 mmol/ Sodium Chloride 106.6667 ml @ 51.667 m... 1X ONCE IV Last administered on 07/12/19at 11:22; Start 07/12/19 at 10:15; Stop 07/12/19 at 12:18; Status DC Acetaminophen (Tylenol Supp) 650 mg PRN Q6HRS PRN [place] MILD PAIN / TEMP > 100.3'F Last administered on 08/15/19at 00:32; Start 07/12/19 at 10:30 Potassium Chloride/Water 100 ml @ 100 mls/hr Q1H IV Last administered on 07/12/19at 12:12; Start 07/12/19 at 11:00; Stop 07/12/19 at 12:59; Status DC Potassium Chloride 20 meq/ Bicarbonate Dialysis Soln w/ out KCl 5,010 ml @ 1,000 mls/hr Q5H1M IV Last administered on 07/13/19at 08:48; Start 07/12/19 at 12:00; Stop 07/13/19 at 13:03; Status DC Potassium Chloride 20 meq/ Bicarbonate Dialysis Soln w/ out KCl 5,010 ml @ 1,000 mls/hr Q5H1M IV Last administered on 07/17/19at 14:52; Start 07/12/19 at 11:30; Stop 07/17/19 at 19:59; Status DC Potassium Chloride 20 meq/ Bicarbonate Dialysis Soln w/ out KCl 5,010 ml @ 1,000 mls/hr Q5H1M IV Last administered on 07/17/19at 14:53; Start 07/12/19 at 11:30; Stop 07/17/19 at 19:59; Status DC Sodium Chloride 90 meq/Potassium Chloride 15 meq/ Potassium Phosphate 15 mmol/ Magnesium Sulfate 10 meq/Calcium Gluconate 15 meq/ Multivitamins 10 ml/Chromium/ Copper/Manganese/ Seleni/Zn 0.5 ml/ Total Parenteral Nutrition/Amino Acids/Dextrose/ Fat Emulsion Intravenous 1,400 ml @ 58.333 mls/ hr TPN CONT IV Last administered on 07/12/19at 22:17; Start 07/12/19 at 22:00; Stop 07/13/19 at 21:59; Status DC Cefepime HCl (Maxipime) 2 gm Q12HR IVP Last administered on 07/26/19at 20:56; Start 07/13/19 at 09:00; Stop 07/27/19 at 09:58; Status DC Daptomycin 500 mg/ Sodium Chloride 50 ml @ 100 mls/hr Q48H IV Last administered on 07/29/19at 09:57; Start 07/13/19 at 08:30; Stop 07/29/19 at 10:07; Status DC Lidocaine HCl (Buffered Lidocaine 1%) 3 ml 1X ONCE INJ Last administered on 07/13/19at 10:27; Start 07/13/19 at 10:30; Stop 07/13/19 at 10:31; Status DC Potassium Phosphate 20 mmol/ Sodium Chloride 106.6667 ml @ 51.667 m... 1X ONCE IV Last administered on 07/13/19at 12:51; Start 07/13/19 at 13:00; Stop 07/13/19 at 15:03; Status DC Sodium Chloride 90 meq/Potassium Chloride 15 meq/ Potassium Phosphate 18 mmol/ Magnesium Sulfate 8 meq/Calcium Gluconate 15 meq/ Multivitamins 10 ml/Chromium/ Copper/Manganese/ Seleni/Zn 0.5 ml/ Total Parenteral Nutrition/Amino Acids/Dextrose/ Fat Emulsion Intravenous 1,400 ml @ 58.333 mls/ hr TPN CONT IV Last administered on 07/13/19at 22:16; Start 07/13/19 at 22:00; Stop 07/14/19 at 21:59; Status DC Potassium Chloride 20 meq/ Bicarbonate Dialysis Soln w/ out KCl 5,010 ml @ 1,000 mls/hr Q5H1M IV Last administered on 07/17/19at 14:54; Start 07/13/19 at 16:00; Stop 07/17/19 at 19:59; Status DC Multi-Ingred Cream/Lotion/Oil/ Oint (Artificial Tears Eye Ointment) 1 ramu PRN Q1HR PRN OU DRY EYE, 2nd choice Last administered on 08/01/19at 08:19; Start 07/13/19 at 17:30 Sodium Chloride 90 meq/Potassium Chloride 15 meq/ Potassium Phosphate 18 mmol/ Magnesium Sulfate 8 meq/Calcium Gluconate 15 meq/ Multivitamins 10 ml/Chromium/ Copper/Manganese/ Seleni/Zn 0.5 ml/ Total Parenteral Nutrition/Amino Acids/Dextrose/ Fat Emulsion Intravenous 1,400 ml @ 58.333 mls/ hr TPN CONT IV Last administered on 07/14/19at 22:00; Start 07/14/19 at 22:00; Stop 07/15/19 at 21:59; Status DC Albumin Human 500 ml @ 125 mls/hr 1X ONCE IV ; Start 07/14/19 at 14:15; Stop 07/14/19 at 18:14; Status DC Sodium Chloride 90 meq/Potassium Chloride 15 meq/ Potassium Phosphate 18 mmol/ Magnesium Sulfate 8 meq/Calcium Gluconate 15 meq/ Multivitamins 10 ml/Chromium/ Copper/Manganese/ Seleni/Zn 0.5 ml/ Insulin Human Regular 10 unit/ Total Parenteral Nutrition/Amino Acids/Dextrose/ Fat Emulsion Intravenous 1,400 ml @ 58.333 mls/ hr TPN CONT IV Last administered on 07/15/19at 21:43; Start 07/15/19 at 22:00; Stop 07/16/19 at 21:59; Status DC Lidocaine HCl (Buffered Lidocaine 1%) 3 ml STK-MED ONCE .ROUTE ; Start 07/13/19 at 10:00; Stop 07/15/19 at 13:57; Status DC Midazolam HCl 100 mg/Sodium Chloride 100 ml @ 7 mls/hr CONT PRN IV SEE PROTOCOL Last administered on 07/27/19at 15:35; Start 07/16/19 at 16:00 Sodium Chloride 90 meq/Potassium Chloride 15 meq/ Potassium Phosphate 18 mmol/ Magnesium Sulfate 8 meq/Calcium Gluconate 15 meq/ Multivitamins 10 ml/Chromium/ Copper/Manganese/ Seleni/Zn 0.5 ml/ Insulin Human Regular 15 unit/ Total Parenteral Nutrition/Amino Acids/Dextrose/ Fat Emulsion Intravenous 1,400 ml @ 58.333 mls/ hr TPN CONT IV Last administered on 07/16/19at 20:34; Start 07/16/19 at 22:00; Stop 07/17/19 at 21:59; Status DC Info (Icu Electrolyte Protocol) 1 ea CONT PRN PRN MC PER PROTOCOL; Start 07/17/19 at 13:15 Sodium Chloride 90 meq/Potassium Chloride 15 meq/ Potassium Phosphate 18 mmol/ Magnesium Sulfate 8 meq/Calcium Gluconate 15 meq/ Multivitamins 10 ml/Chromium/ Copper/Manganese/ Seleni/Zn 0.5 ml/ Insulin Human Regular 15 unit/ Total Parenteral Nutrition/Amino Acids/Dextrose/ Fat Emulsion Intravenous 1,400 ml @ 58.333 mls/ hr TPN CONT IV Last administered on 07/17/19at 22:05; Start 07/17/19 at 22:00; Stop 07/18/19 at 21:59; Status DC Potassium Chloride 15 meq/ Bicarbonate Dialysis Soln w/ out KCl 5,007.5 ml @ 1,000 mls/ hr Q5H1M IV Last administered on 07/20/19at 18:14; Start 07/17/19 at 20:00; Stop 07/21/19 at 13:08; Status DC Potassium Chloride 15 meq/ Bicarbonate Dialysis Soln w/ out KCl 5,007.5 ml @ 1,000 mls/ hr Q5H1M IV Last administered on 07/20/19at 18:14; Start 07/17/19 at 20:00; Stop 07/21/19 at 13:08; Status DC Potassium Chloride 15 meq/ Bicarbonate Dialysis Soln w/ out KCl 5,007.5 ml @ 1,000 mls/ hr Q5H1M IV Last administered on 07/20/19at 18:14; Start 07/17/19 at 20:00; Stop 07/21/19 at 13:08; Status DC Iohexol (Omnipaque 240 Mg/ml) 30 ml 1X ONCE PO Last administered on 07/18/19at 11:30; Start 07/18/19 at 11:30; Stop 07/18/19 at 11:33; Status DC Info (CONTRAST GIVEN -- Rx MONITORING) 1 each PRN DAILY PRN MC SEE COMMENTS; Start 07/18/19 at 11:45; Stop 07/20/19 at 11:44; Status DC Sodium Chloride 90 meq/Potassium Chloride 15 meq/ Potassium Phosphate 18 mmol/ Magnesium Sulfate 8 meq/Calcium Gluconate 15 meq/ Multivitamins 10 ml/Chromium/ Copper/Manganese/ Seleni/Zn 0.5 ml/ Insulin Human Regular 15 unit/ Total Parenteral Nutrition/Amino Acids/Dextrose/ Fat Emulsion Intravenous 1,400 ml @ 58.333 mls/ hr TPN CONT IV Last administered on 07/18/19at 21:47; Start 07/18/19 at 22:00; Stop 07/19/19 at 21:59; Status DC Sodium Chloride 90 meq/Potassium Chloride 15 meq/ Potassium Phosphate 18 mmol/ Magnesium Sulfate 8 meq/Calcium Gluconate 15 meq/ Multivitamins 10 ml/Chromium/ Copper/Manganese/ Seleni/Zn 0.5 ml/ Insulin Human Regular 20 unit/ Total Parenteral Nutrition/Amino Acids/Dextrose/ Fat Emulsion Intravenous 1,400 ml @ 58.333 mls/ hr TPN CONT IV Last administered on 07/19/19at 21:36; Start 07/19/19 at 22:00; Stop 07/20/19 at 21:59; Status DC Alteplase, Recombinant (Cathflo For Central Catheter Clearance) 1 mg 1X ONCE INT CAT Last administered on 07/19/19at 20:03; Start 07/19/19 at 19:30; Stop 07/19/19 at 19:46; Status DC Alteplase, Recombinant (Cathflo For Central Catheter Clearance) 1 mg 1X ONCE INT CAT Last administered on 07/19/19at 22:05; Start 07/19/19 at 22:00; Stop 07/19/19 at 22:01; Status DC Sodium Chloride 90 meq/Potassium Chloride 15 meq/ Potassium Phosphate 18 mmol/ Magnesium Sulfate 8 meq/Calcium Gluconate 15 meq/ Multivitamins 10 ml/Chromium/ Copper/Manganese/ Seleni/Zn 0.5 ml/ Insulin Human Regular 20 unit/ Total Parenteral Nutrition/Amino Acids/Dextrose/ Fat Emulsion Intravenous 1,400 ml @ 58.333 mls/ hr TPN CONT IV Last administered on 07/20/19at 21:30; Start 07/20/19 at 22:00; Stop 07/21/19 at 21:59; Status DC Dexmedetomidine HCl 400 mcg/ Sodium Chloride 100 ml @ 0 mls/hr CONT PRN IV ANXIETY / AGITATION Last administered on 08/16/19at 05:27; Start 07/21/19 at 08:15 Sodium Chloride 500 ml @ 500 mls/hr 1X PRN PRN IV ELEVATED BP, SEE COMMENTS; Start 07/21/19 at 08:15 Atropine Sulfate (ATROPINE 0.5mg SYRINGE) 0.5 mg PRN Q5MIN PRN IV SEE COMMENTS; Start 07/21/19 at 08:15 Furosemide (Lasix) 20 mg 1X ONCE IVP Last administered on 07/21/19at 08:19; Start 07/21/19 at 08:15; Stop 07/21/19 at 08:16; Status DC Lidocaine HCl (Buffered Lidocaine 1%) 3 ml STK-MED ONCE .ROUTE ; Start 07/21/19 at 08:39; Stop 07/21/19 at 08:39; Status DC Lidocaine HCl (Buffered Lidocaine 1%) 6 ml 1X ONCE INJ Last administered on 07/21/19at 09:05; Start 07/21/19 at 09:00; Stop 07/21/19 at 09:06; Status DC Sodium Chloride 90 meq/Potassium Chloride 15 meq/ Potassium Phosphate 18 mmol/ Magnesium Sulfate 8 meq/Calcium Gluconate 15 meq/ Multivitamins 10 ml/Chromium/ Copper/Manganese/ Seleni/Zn 0.5 ml/ Insulin Human Regular 20 unit/ Total Parenteral Nutrition/Amino Acids/Dextrose/ Fat Emulsion Intravenous 1,400 ml @ 58.333 mls/ hr TPN CONT IV Last administered on 07/21/19at 22:45; Start 07/21/19 at 22:00; Stop 07/22/19 at 21:59; Status DC Sodium Chloride 1,000 ml @ 1,000 mls/hr Q1H PRN IV hypotension; Start 07/22/19 at 07:30; Stop 07/22/19 at 13:29; Status DC Albumin Human 200 ml @ 200 mls/hr 1X PRN PRN IV Hypotension Last administered on 07/22/19at 09:36; Start 07/22/19 at 07:30; Stop 07/22/19 at 13:29; Status DC Sodium Chloride (Normal Saline Flush) 10 ml 1X PRN PRN IV AP catheter pack; Start 07/22/19 at 07:30; Stop 07/22/19 at 21:29; Status DC Sodium Chloride (Normal Saline Flush) 10 ml 1X PRN PRN IV [employer] catheter pack; Start 07/22/19 at 07:30; Stop 07/23/19 at 07:29; Status DC Sodium Chloride 1,000 ml @ 400 mls/hr Q2H30M PRN IV PATENCY; Start 07/22/19 at 07:30; Stop 07/22/19 at 19:29; Status DC Info (PHARMACY MONITORING -- do not chart) 1 each PRN DAILY PRN MC SEE COMMENTS; Start 07/22/19 at 07:30; Stop 07/22/19 at 13:02; Status DC Info (PHARMACY MONITORING -- do not chart) 1 each PRN DAILY PRN MC SEE COMMENTS; Start 07/22/19 at 07:30; Stop 07/24/19 at 12:45; Status DC Sodium Chloride 90 meq/Potassium Chloride 15 meq/ Potassium Phosphate 10 mmol/ Magnesium Sulfate 8 meq/Calcium Gluconate 15 meq/ Multivitamins 10 ml/Chromium/ Copper/Manganese/ Seleni/Zn 0.5 ml/ Insulin Human Regular 25 unit/ Total Parenteral Nutrition/Amino Acids/Dextrose/ Fat Emulsion Intravenous 1,400 ml @ 58.333 mls/ hr TPN CONT IV Last administered on 07/22/19at 22:19; Start 07/22/19 at 22:00; Stop 07/23/19 at 21:59; Status DC Heparin Sodium (Porcine) (Heparin Sodium) 5,000 unit Q12HR SQ Last administered on 08/14/19at 08:59; Start 07/22/19 at 21:00; Stop 08/14/19 at 10:05; Status DC Ondansetron HCl (Zofran) 4 mg PRN Q6HRS PRN IV NAUSEA/VOMITING; Start 07/25/19 at 07:00; Stop 07/26/19 at 06:59; Status DC Fentanyl Citrate (Fentanyl 2ml Vial) 25 mcg PRN Q5MIN PRN IV MILD PAIN 1-3; Start 07/25/19 at 07:00; Stop 07/26/19 at 06:59; Status DC Fentanyl Citrate (Fentanyl 2ml Vial) 50 mcg PRN Q5MIN PRN IV MODERATE TO SEVERE PAIN; Start 07/25/19 at 07:00; Stop 07/26/19 at 06:59; Status DC Ringer's Solution 1,000 ml @ 30 mls/hr Q24H IV ; Start 07/25/19 at 07:00; Stop 07/25/19 at 18:59; Status DC Lidocaine HCl (Xylocaine-Mpf 1% 2ml Vial) 2 ml PRN 1X PRN ID PRIOR TO IV START; Start 07/25/19 at 07:00; Stop 07/26/19 at 06:59; Status DC Prochlorperazine Edisylate (Compazine) 5 mg PACU PRN PRN IV NAUSEA, MRX1; St art 07/25/19 at 07:00; Stop 07/26/19 at 06:59; Status DC Sodium Chloride 1,000 ml @ 1,000 mls/hr Q1H PRN IV hypotension; Start 07/23/19 at 09:10; Stop 07/23/19 at 15:09; Status DC Albumin Human 200 ml @ 200 mls/hr 1X PRN PRN IV Hypotension Last administered on 07/23/19at 10:10; Start 07/23/19 at 09:15; Stop 07/23/19 at 15:14; Status DC Sodium Chloride 1,000 ml @ 400 mls/hr Q2H30M PRN IV PATENCY; Start 07/23/19 at 09:10; Stop 07/23/19 at 21:09; Status DC Info (PHARMACY MONITORING -- do not chart) 1 each PRN DAILY PRN MC SEE COMMENTS; Start 07/23/19 at 09:15; Stop 07/24/19 at 12:45; Status DC Info (PHARMACY MONITORING -- do not chart) 1 each PRN DAILY PRN MC SEE COMMENTS; Start 07/23/19 at 09:15; Stop 07/24/19 at 12:45; Status DC Sodium Chloride 90 meq/Potassium Chloride 15 meq/ Potassium Phosphate 10 mmol/ Magnesium Sulfate 8 meq/Calcium Gluconate 15 meq/ Multivitamins 10 ml/Chromium/ Copper/Manganese/ Seleni/Zn 0.5 ml/ Insulin Human Regular 25 unit/ Total Parenteral Nutrition/Amino Acids/Dextrose/ Fat Emulsion Intravenous 1,400 ml @ 58.333 mls/ hr TPN CONT IV Last administered on 07/23/19at 22:10; Start 07/23/19 at 22:00; Stop 07/24/19 at 21:59; Status DC Magnesium Sulfate 50 ml @ 25 mls/hr PRN DAILY PRN IV for Mag < 1.7 on am labs Last administered on 08/08/19at 17:27; Start 07/24/19 at 09:15 Sodium Chloride 90 meq/Potassium Chloride 15 meq/ Potassium Phosphate 10 mmol/ Magnesium Sulfate 8 meq/Calcium Gluconate 15 meq/ Multivitamins 10 ml/Chromium/ Copper/Manganese/ Seleni/Zn 0.5 ml/ Insulin Human Regular 25 unit/ Total Parenteral Nutrition/Amino Acids/Dextrose/ Fat Emulsion Intravenous 1,400 ml @ 58.333 mls/ hr TPN CONT IV Last administered on 07/24/19at 21:20; Start 07/24/19 at 22:00; Stop 07/25/19 at 21:59; Status DC Sodium Chloride 1,000 ml @ 1,000 mls/hr Q1H PRN IV hypotension; Start 07/24/19 at 12:23; Stop 07/24/19 at 18:22; Status DC Albumin Human 200 ml @ 200 mls/hr 1X ONCE IV Last administered on 07/24/19at 13:34; Start 07/24/19 at 12:30; Stop 07/24/19 at 13:29; Status DC Diphenhydramine HCl (Benadryl) 25 mg 1X PRN PRN IV ITCHING; Start 07/24/19 at 12:30; Stop 07/25/19 at 12:29; Status DC Diphenhydramine HCl (Benadryl) 25 mg 1X PRN PRN IV ITCHING; Start 07/24/19 at 12:30; Stop 07/25/19 at 12:29; Status DC Info (PHARMACY MONITORING -- do not chart) 1 each PRN DAILY PRN MC SEE COMMENTS; Start 07/24/19 at 12:30; Status Cancel Bupivacaine HCl/ Epinephrine Bitart (Sensorcain-Epi 0.5%-1:[id number] Mpf) 30 ml STK-MED ONCE .ROUTE Last administered on 07/25/19at 11:44; Start 07/25/19 at 11:00; Stop 07/25/19 at 11:01; Status DC Cellulose (Surgicel Fibrillar 1x2) 1 each STK-MED ONCE .ROUTE ; Start 07/25/19 at 11:00; Stop 07/25/19 at 11:01; Status DC Sodium Chloride 90 meq/Potassium Chloride 15 meq/ Potassium Phosphate 10 mmol/ Magnesium Sulfate 12 meq/Calcium Gluconate 15 meq/ Multivitamins 10 ml/Chromium/ Copper/Manganese/ Seleni/Zn 0.5 ml/ Insulin Human Regular 25 unit/ Total Parenteral Nutrition/Amino Acids/Dextrose/ Fat Emulsion Intravenous 1,400 ml @ 58.333 mls/ hr TPN CONT IV Last administered on 07/25/19at 22:24; Start 07/25/19 at 22:00; Stop 07/26/19 at 21:59; Status DC Propofol 20 ml @ As Directed STK-MED ONCE IV ; Start 07/25/19 at 11:07; Stop 07/25/19 at 11:07; Status DC Cellulose (Surgicel Hemostat 4x8) 1 each STK-MED ONCE .ROUTE Last administered on 07/25/19at 11:44; Start 07/25/19 at 11:55; Stop 07/25/19 at 11:56; Status DC Sevoflurane (Ultane) 60 ml STK-MED ONCE IH ; Start 07/25/19 at 12:46; Stop 07/25/19 at 12:46; Status DC Sodium Chloride 1,000 ml @ 1,000 mls/hr Q1H PRN IV hypotension; Start 07/25/19 at 13:51; Stop 07/25/19 at 19:50; Status DC Albumin Human 200 ml @ 200 mls/hr 1X PRN PRN IV Hypotension Last administered on 07/25/19at 14:51; Start 07/25/19 at 14:00; Stop 07/25/19 at 19:59; Status DC Diphenhydramine HCl (Benadryl) 25 mg 1X PRN PRN IV ITCHING; Start 07/25/19 at 14:00; Stop 07/26/19 at 13:59; Status DC Diphenhydramine HCl (Benadryl) 25 mg 1X PRN PRN IV ITCHING; Start 07/25/19 at 14 :00; Stop 07/26/19 at 13:59; Status DC Sodium Chloride 1,000 ml @ 400 mls/hr Q2H30M PRN IV PATENCY; Start 07/25/19 at 13:51; Stop 07/26/19 at 01:50; Status DC Info (PHARMACY MONITORING -- do not chart) 1 each PRN DAILY PRN MC SEE COMMENTS; Start 07/25/19 at 14:00; Stop 07/28/19 at 08:16; Status DC Heparin Sodium (Porcine) (Hep Lock Adult) 500 unit STK-MED ONCE IVP ; Start 07/26/19 at 09:29; Stop 07/26/19 at 09:30; Status DC Sodium Chloride 1,000 ml @ 1,000 mls/hr Q1H PRN IV hypotension; Start 07/26/19 at 10:43; Stop 07/26/19 at 16:42; Status DC Sodium Chloride 1,000 ml @ 400 mls/hr Q2H30M PRN IV PATENCY; Start 07/26/19 at 10:43; Stop 07/26/19 at 22:42; Status DC Info (PHARMACY MONITORING -- do not chart) 1 each PRN DAILY PRN MC SEE COMMENTS; Start 07/26/19 at 10:45; Status UNV Info (PHARMACY MONITORING -- do not chart) 1 each PRN DAILY PRN MC SEE COMMENTS; Start 07/26/19 at 10:45; Status UNV Sodium Chloride 90 meq/Potassium Chloride 15 meq/ Magnesium Sulfate 12 meq/Calcium Gluconate 15 meq/ Multivitamins 10 ml/Chromium/ Copper/Manganese/ Seleni/Zn 0.5 ml/ Insulin Human Regular 25 unit/ Total Parenteral Nutrition/Amino Acids/Dextrose/ Fat Emulsion Intravenous 1,400 ml @ 58.333 mls/ hr TPN CONT IV Last administered on 07/26/19at 22:13; Start 07/26/19 at 22:00; Stop 07/27/19 at 21:59; Status DC Sodium Chloride 1,000 ml @ 1,000 mls/hr Q1H PRN IV hypotension; Start 07/27/19 at 07:50; Stop 07/27/19 at 13:49; Status DC Albumin Human 200 ml @ 200 mls/hr 1X ONCE IV ; Start 07/27/19 at 08:00; Stop 07/27/19 at 08:53; Status DC Diphenhydramine HCl (Benadryl) 25 mg 1X PRN PRN IV ITCHING; Start 07/27/19 at 08:00; Stop 07/28/19 at 07:59; Status DC Diphenhydramine HCl (Benadryl) 25 mg 1X PRN PRN IV ITCHING; Start 07/27/19 at 08:00; Stop 07/28/19 at 07:59; Status DC Info (PHARMACY MONITORING -- do not chart) 1 each PRN DAILY PRN MC SEE COMMENTS; Start 07/27/19 at 08:00; Stop 07/28/19 at 08:16; Status DC Albumin Human 50 ml @ 50 mls/hr 1X ONCE IV ; Start 07/27/19 at 08:53; Stop 07/27/19 at 08:56; Status DC Albumin Human 200 ml @ 50 mls/hr PRN 1X PRN IV HYPOTENSION Last administered on 08/02/19at 11:54; Start 07/27/19 at 09:00 Meropenem 500 mg/ Sodium Chloride 50 ml @ 100 mls/hr Q12H IV Last administered on 08/15/19at 22:00; Start 07/27/19 at 10:00 Sodium Chloride 90 meq/Magnesium Sulfate 12 meq/ Calcium Gluconate 15 meq/ Multivitamins 10 ml/Chromium/ Copper/Manganese/ Seleni/Zn 0.5 ml/ Insulin Human Regular 25 unit/ Total Parenteral Nutrition/Amino Acids/Dextrose/ Fat Emulsion Intravenous 1,400 ml @ 58.333 mls/ hr TPN CONT IV Last administered on 07/27/19at 21:41; Start 07/27/19 at 22:00; Stop 07/28/19 at 21:59; Status DC Sodium Chloride 1,000 ml @ 1,000 mls/hr Q1H PRN IV hypotension; Start 07/28/19 at 07:58; Stop 07/28/19 at 13:57; Status DC Albumin Human 200 ml @ 200 mls/hr 1X PRN PRN IV Hypotension Last administered on 07/28/19at 09:30; Start 07/28/19 at 08:00; Stop 07/28/19 at 13:59; Status DC Sodium Chloride 1,000 ml @ 400 mls/hr Q2H30M PRN IV PATENCY; Start 07/28/19 at 07:58; Stop 07/28/19 at 19:57; Status DC Info (PHARMACY MONITORING -- do not chart) 1 each PRN DAILY PRN [facility] SEE COMMENTS; Start 07/28/19 at 08:00; Status Cancel Info (PHARMACY MONITORING -- do not chart) 1 each PRN DAILY PRN [facility] SEE COMMENTS; Start 07/28/19 at 08:15; Status UNV Sodium Chloride 90 meq/Potassium Phosphate 5 mmol/ Magnesium Sulfate 12 meq/Calcium Gluconate 15 meq/ Multivitamins 10 ml/Chromium/ Copper/Manganese/ Seleni/Zn 0.5 ml/ Insulin Human Regular 30 unit/ Total Parenteral Nutrition/Amino Acids/Dextrose/ Fat Emulsion Intravenous 1,400 ml @ 58.333 mls/ hr TPN CONT IV Last administered on 07/28/19at 22:08; Start 07/28/19 at 22:00; Stop 07/29/19 at 21:59; Status DC Linezolid/Dextrose 300 ml @ 300 mls/hr Q12HR IV Last administered on 08/08/19at 20:40; Start 07/29/19 at 11:00; Stop 08/09/19 at 08:10; Status DC Sodium Chloride 90 meq/Potassium Phosphate 15 mmol/ Magnesium Sulfate 12 meq/Calcium Gluconate 15 meq/ Multivitamins 10 ml/Chromium/ Copper/Manganese/ Seleni/Zn 0.5 ml/ Insulin Human Regular 30 unit/ Total Parenteral Nutrition/Amino Acids/Dextrose/ Fat Emulsion Intravenous 1,400 ml @ 58.333 mls/ hr TPN CONT IV Last administered on 07/29/19at 21:49; Start 07/29/19 at 22:00; Stop 07/30/19 at 21:59; Status DC Sodium Chloride 90 meq/Potassium Phosphate 15 mmol/ Magnesium Sulfate 12 meq/Calcium Gluconate 15 meq/ Multivitamins 10 ml/Chromium/ Copper/Manganese/ Seleni/Zn 0.5 ml/ Insulin Human Regular 40 unit/ Total Parenteral Nutrition/Amino Acids/Dextrose/ Fat Emulsion Intravenous 1,400 ml @ 58.333 mls/ hr TPN CONT IV Last administered on 07/30/19at 21:21; Start 07/30/19 at 22:00; Stop 07/31/19 at 21:59; Status DC Sodium Chloride 1,000 ml @ 1,000 mls/hr Q1H PRN IV hypotension; Start 07/30/19 at 13:26; Stop 07/30/19 at 19:25; Status DC Albumin Human 200 ml @ 200 mls/hr 1X PRN PRN IV Hypotension Last administered on 07/30/19at 15:00; Start 07/30/19 at 13:30; Stop 07/30/19 at 19:29; Status DC Sodium Chloride (Normal Saline Flush) 10 ml 1X PRN PRN IV AP catheter pack; Start 07/30/19 at 13:30; Stop 07/31/19 at 13:29; Status DC Sodium Chloride (Normal Saline Flush) 10 ml 1X PRN PRN IV [employer] catheter pack; Start 07/30/19 at 13:30; Stop 07/31/19 at 13:29; Status DC Sodium Chloride 1,000 ml @ 400 mls/hr Q2H30M PRN IV PATENCY; Start 07/30/19 at 13:26; Stop 07/31/19 at 01:25; Status DC Info (PHARMACY MONITORING -- do not chart) 1 each PRN DAILY PRN MC SEE COMMENTS; Start 07/30/19 at 13:30; Stop 07/30/19 at 13:33; Status DC Info (PHARMACY MONITORING -- do not chart) 1 each PRN DAILY PRN MC SEE COMMENTS; Start 07/30/19 at 13:30; Stop 07/30/19 at 13:34; Status DC Sodium Chloride 90 meq/Potassium Phosphate 19 mmol/ Magnesium Sulfate 12 meq/Calcium Gluconate 15 meq/ Multivitamins 10 ml/Chromium/ Copper/Manganese/ Seleni/Zn 0.5 ml/ Insulin Human Regular 40 unit/ Total Parenteral Nutrition/Amino Acids/Dextrose/ Fat Emulsion Intravenous 1,400 ml @ 58.333 mls/ hr TPN CONT IV Last administered on 07/31/19at 21:54; Start 07/31/19 at 22:00; Stop 08/01/19 at 21:59; Status DC Sodium Chloride 1,000 ml @ 1,000 mls/hr Q1H PRN IV hypotension; Start 08/01/19 at 09:35; Stop 08/01/19 at 15:34; Status DC Albumin Human 200 ml @ 200 mls/hr 1X PRN PRN IV Hypotension; Start 08/01/19 at 09:45; Stop 08/01/19 at 15:44; Status DC Diphenhydramine HCl (Benadryl) 25 mg 1X PRN PRN IV ITCHING; Start 08/01/19 at 09:45; Stop 08/02/19 at 09:44; Status DC Diphenhydramine HCl (Benadryl) 25 mg 1X PRN PRN IV ITCHING; Start 08/01/19 at 09:45; Stop 08/02/19 at 09:44; Status DC Sodium Chloride 1,000 ml @ 400 mls/hr Q2H30M PRN IV PATENCY; Start 08/01/19 at 09:35; Stop 08/01/19 at 21:34; Status DC Info (PHARMACY MONITORING -- do not chart) 1 each PRN DAILY PRN MC SEE COMMENTS; Start 08/01/19 at 09:45; Status Cancel Sodium Chloride 100 meq/Potassium Phosphate 19 mmol/ Magnesium Sulfate 12 meq/Calcium Gluconate 15 meq/ Multivitamins 10 ml/Chromium/ Copper/Manganese/ Seleni/Zn 0.5 ml/ Insulin Human Regular 40 unit/ Potassium Chloride 20 meq/ Total Parenteral Nutrition/Amino Acids/Dextrose/ Fat Emulsion Intravenous 1,400 ml @ 58.333 mls/ hr TPN CONT IV Last administered on 08/01/19at 22:02; Start 08/01/19 at 22:00; Stop 08/02/19 at 21:59; Status DC Furosemide (Lasix) 40 mg 1X ONCE IVP Last administered on 08/01/19at 14:39; Start 08/01/19 at 14:30; Stop 08/01/19 at 14:31; Status DC Metronidazole 100 ml @ 100 mls/hr Q8HRS IV Last administered on 08/09/19at 06:04; Start 08/02/19 at 10:00; Stop 08/09/19 at 08:10; Status DC Sodium Chloride 1,000 ml @ 1,000 mls/hr Q1H PRN IV hypotension; Start 08/02/19 at 08:00; Stop 08/02/19 at 13:59; Status DC Albumin Human 200 ml @ 200 mls/hr 1X PRN PRN IV Hypotension; Start 08/02/19 at 08:00; Stop 08/02/19 at 13:59; Status DC Sodium Chloride 1,000 ml @ 400 mls/hr Q2H30M PRN IV PATENCY; Start 08/02/19 at 08:00; Stop 08/02/19 at 19:59; Status DC Info (PHARMACY MONITORING -- do not chart) 1 each PRN DAILY PRN MC SEE COMMENTS; Start 08/02/19 at 11:30; Status UNV Info (PHARMACY MONITORING -- do not chart) 1 each PRN DAILY PRN MC SEE COMMENTS; Start 08/02/19 at 11:30; Stop 08/04/19 at 12:13; Status DC Sodium Chloride 100 meq/Potassium Phosphate 19 mmol/ Magnesium Sulfate 12 meq/Calcium Gluconate 15 meq/ Multivitamins 10 ml/Chromium/ Copper/Manganese/ Seleni/Zn 0.5 ml/ Insulin Human Regular 40 unit/ Potassium Chloride 20 meq/ Total Parenteral Nutrition/Amino Acids/Dextrose/ Fat Emulsion Intravenous 1,400 ml @ 58.333 mls/ hr TPN CONT IV Last administered on 08/02/19at 21:52; Start 08/02/19 at 22:00; Stop 08/03/19 at 21:59; Status DC Sodium Chloride (Normal Saline Flush) 10 ml QSHIFT PRN IV AFTER MEDS AND BLOOD DRAWS; Start 08/02/19 at 15:00 Sodium Chloride (Normal Saline Flush) 10 ml PRN Q5MIN PRN IV AFTER MEDS AND BLOOD DRAWS; Start 08/02/19 at 15:00 Sodium Chloride (Normal Saline Flush) 20 ml PRN Q5MIN PRN IV AFTER MEDS AND BLOOD DRAWS; Start 08/02/19 at 15:00 Sodium Chloride 100 meq/Potassium Phosphate 19 mmol/ Magnesium Sulfate 12 meq/Calcium Gluconate 15 meq/ Multivitamins 10 ml/Chromium/ Copper/Manganese/ Seleni/Zn 0.5 ml/ Insulin Human Regular 40 unit/ Potassium Chloride 20 meq/ Total Parenteral Nutrition/Amino Acids/Dextrose/ Fat Emulsion Intravenous 1,400 ml @ 58.333 mls/ hr TPN CONT IV Last administered on 08/03/19at 21:20; Start 08/03/19 at 22:00; Stop 08/04/19 at 21:59; Status DC Lidocaine HCl (Buffered Lidocaine 1%) 3 ml STK-MED ONCE .ROUTE ; Start 08/03/19 at 13:16; Stop 08/03/19 at 13:16; Status DC Lidocaine HCl (Buffered Lidocaine 1%) 6 ml 1X ONCE INJ Last administered on 08/03/19at 13:45; Start 08/03/19 at 13:30; Stop 08/03/19 at 13:31; Status DC Albumin Human 100 ml @ 100 mls/hr 1X ONCE IV Last administered on 08/03/19at 15:41; Start 08/03/19 at 15:00; Stop 08/03/19 at 15:59; Status DC Albumin Human 50 ml @ 50 mls/hr 1X ONCE IV Last administered on 08/03/19at 15:00; Start 08/03/19 at 15:00; Stop 08/03/19 at 15:59; Status DC Info (PHARMACY MONITORING -- do not chart) 1 each PRN DAILY PRN MC SEE COMMENTS; Start 08/04/19 at 11:30; Status Cancel Info (PHARMACY MONITORING -- do not chart) 1 each PRN DAILY PRN MC SEE COMMENTS; Start 08/04/19 at 11:30; Status UNV Sodium Chloride 100 meq/Potassium Phosphate 10 mmol/ Magnesium Sulfate 12 meq/Calcium Gluconate 15 meq/ Multivitamins 10 ml/Chromium/ Copper/Manganese/ Seleni/Zn 0.5 ml/ Insulin Human Regular 35 unit/ Potassium Chloride 20 meq/ Total Parenteral Nutrition/Amino Acids/Dextrose/ Fat Emulsion Intravenous 1,400 ml @ 58.333 mls/ hr TPN CONT IV Last administered on 08/04/19at 22:10; Start 08/04/19 at 22:00; Stop 08/05/19 at 21:59; Status DC Sodium Chloride 100 meq/Potassium Phosphate 5 mmol/ Magnesium Sulfate 12 meq/Calcium Gluconate 15 meq/ Multivitamins 10 ml/Chromium/ Copper/Manganese/ Seleni/Zn 0.5 ml/ Insulin Human Regular 35 unit/ Potassium Chloride 20 meq/ Total Parenteral Nutrition/Amino Acids/Dextrose/ Fat Emulsion Intravenous 1,400 ml @ 58.333 mls/ hr TPN CONT IV Last administered on 08/05/19at 22:59; Start 08/05/19 at 22:00; Stop 08/06/19 at 21:59; Status DC Sodium Chloride 1,000 ml @ 1,000 mls/hr Q1H PRN IV hypotension; Start 08/06/19 at 08:27; Stop 08/06/19 at 14:26; Status DC Albumin Human 200 ml @ 200 mls/hr 1X PRN PRN IV Hypotension Last administered on 08/06/19at 09:18; Start 08/06/19 at 08:30; Stop 08/06/19 at 14:29; Status DC Sodium Chloride 1,000 ml @ 400 mls/hr Q2H30M PRN IV PATENCY; Start 08/06/19 at 08:27; Stop 08/06/19 at 20:26; Status DC Info (PHARMACY MONITORING -- do not chart) 1 each PRN DAILY PRN MC SEE COMMENTS; Start 08/06/19 at 08:30; Status Cancel Info (PHARMACY MONITORING -- do not chart) 1 each PRN DAILY PRN MC SEE COMMENTS; Start 08/06/19 at 08:30; Stop 08/14/19 at 13:10; Status DC Sodium Chloride 100 meq/Potassium Chloride 40 meq/ Magnesium Sulfate 15 meq/Calcium Gluconate 15 meq/ Multivitamins 10 ml/Chromium/ Copper/Manganese/ Seleni/Zn 0.5 ml/ Insulin Human Regular 35 unit/ Total Parenteral Nutrition/Amino Acids/Dextrose/ Fat Emulsion Intravenous 1,400 ml @ 58.333 mls/ hr TPN CONT IV Last administered on 08/06/19at 22:00; Start 08/06/19 at 22:00; Stop 08/07/19 at 21:59; Status DC Potassium Chloride/Water 100 ml @ 100 mls/hr 1X ONCE IV Last administered on 08/06/19at 17:28; Start 08/06/19 at 14:45; Stop 08/06/19 at 15:44; Status DC Sodium Chloride 100 meq/Potassium Chloride 40 meq/ Magnesium Sulfate 15 meq/Calcium Gluconate 15 meq/ Multivitamins 10 ml/Chromium/ Copper/Manganese/ Seleni/Zn 0.5 ml/ Insulin Human Regular 35 unit/ Total Parenteral Nutrition/Amino Acids/Dextrose/ Fat Emulsion Intravenous 1,400 ml @ 58.333 mls/ hr TPN CONT IV Last administered on 08/07/19at 22:46; Start 08/07/19 at 22:00; Stop 08/08/19 at 21:59; Status DC Sodium Chloride 100 meq/Potassium Chloride 40 meq/ Magnesium Sulfate 20 meq/Calcium Gluconate 15 meq/ Multivitamins 10 ml/Chromium/ Copper/Manganese/ Seleni/Zn 0.5 ml/ Insulin Human Regular 35 unit/ Total Parenteral Nutriti on/Amino Acids/Dextrose/ Fat Emulsion Intravenous 1,400 ml @ 58.333 mls/ hr TPN CONT IV Last administered on 08/08/19at 22:31; Start 08/08/19 at 22:00; Stop 08/09/19 at 21:59; Status DC Fentanyl Citrate (Fentanyl 2ml Vial) 50 mcg PRN Q2HR PRN IVP PAIN Last administered on 08/15/19at 13:32; Start 08/08/19 at 21:00 Fentanyl Citrate (Fentanyl 2ml Vial) 25 mcg PRN Q2HR PRN IVP PAIN; Start 08/08/19 at 21:00 Enoxaparin Sodium (Lovenox 100mg Syringe) 100 mg Q12HR SQ ; Start 08/09/19 at 21:00; Status UNV Amino Acids/ Glycerin/ Electrolytes 1,000 ml @ 75 mls/hr [id number] IV ; Start 08/08/19 at 21:15; Status UNV Sodium Chloride 1,000 ml @ 1,000 mls/hr Q1H PRN IV hypotension; Start 08/09/19 at 07:56; Stop 08/09/19 at 13:55; Status DC Albumin Human 200 ml @ 200 mls/hr 1X PRN PRN IV Hypotension Last administered on 08/09/19at 08:40; Start 08/09/19 at 08:00; Stop 08/09/19 at 13:59; Status DC Sodium Chloride 1,000 ml @ 400 mls/hr Q2H30M PRN IV PATENCY; Start 08/09/19 at 07:56; Stop 08/09/19 at 19:55; Status DC Info (PHARMACY MONITORING -- do not chart) 1 each PRN DAILY PRN MC SEE COMMENTS; Start 08/09/19 at 08:00; Status UNV Info (PHARMACY MONITORING -- do not chart) 1 each PRN DAILY PRN MC SEE COMMENTS; Start 08/09/19 at 08:00; Status UNV Daptomycin 430 mg/ Sodium Chloride 50 ml @ 100 mls/hr Q24H IV Last administered on 08/09/19at 12:35; Start 08/09/19 at 09:00; Stop 08/09/19 at 12:4 9; Status DC Sodium Chloride 100 meq/Potassium Chloride 40 meq/ Magnesium Sulfate 20 meq/Calcium Gluconate 15 meq/ Multivitamins 10 ml/Chromium/ Copper/Manganese/ Seleni/Zn 0.5 ml/ Insulin Human Regular 35 unit/ Total Parenteral Nutrition/Amino Acids/Dextrose/ Fat Emulsion Intravenous 1,400 ml @ 58.333 mls/ hr TPN CONT IV Last administered on 08/09/19at 21:26; Start 08/09/19 at 22:00; Stop 08/10/19 at 21:59; Status DC Daptomycin 430 mg/ Sodium Chloride 50 ml @ 100 mls/hr Q48H IV ; Start 08/11/19 at 09:00; Stop 08/10/19 at 11:55; Status DC Sodium Chloride 100 meq/Potassium Chloride 40 meq/ Magnesium Sulfate 20 meq/Calcium Gluconate 15 meq/ Multivitamins 10 ml/Chromium/ Copper/Manganese/ Seleni/Zn 0.5 ml/ Insulin Human Regular 35 unit/ Total Parenteral N utrition/Amino Acids/Dextrose/ Fat Emulsion Intravenous 1,400 ml @ 58.333 mls/ hr TPN CONT IV Last administered on 08/10/19at 22:27; Start 08/10/19 at 22:00; Stop 08/11/19 at 21:59; Status DC Daptomycin 430 mg/ Sodium Chloride 50 ml @ 100 mls/hr Q24H IV Last administered on 08/12/19at 15:07; Start 08/10/19 at 13:00; Stop 08/13/19 at 13:15; Status DC Sodium Chloride 100 meq/Potassium Chloride 40 meq/ Magnesium Sulfate 20 meq/Calcium Gluconate 10 meq/ Multivitamins 10 ml/Chromium/ Copper/Manganese/ Seleni/Zn 0.5 ml/ Insulin Human Regular 35 unit/ Total Parenteral Nutrition/Amino Acids/Dextrose/ Fat Emulsion Intravenous 1,400 ml @ 58.333 mls/ hr TPN CONT IV Last administered on 08/12/19at 00:06; Start 08/11/19 at 22:00; Stop 08/12/19 at 21:59; Status DC Alteplase, Recombinant (Cathflo For Central Catheter Clearance) 1 mg 1X ONCE INT CAT Last administered on 08/12/19at 11:44; Start 08/12/19 at 10:45; Stop 08/12/19 at 10:46; Status DC Ondansetron HCl (Zofran) 4 mg PRN Q6HRS PRN IV NAUSEA/VOMITING; Start 08/15/19 at 07:00; Stop 08/16/19 at 06:59; Status DC Fentanyl Citrate (Fentanyl 2ml Vial) 25 mcg PRN Q5MIN PRN IV MILD PAIN 1-3; Start 08/15/19 at 07:00; Stop 08/16/19 at 06:59; Status DC Fentanyl Citrate (Fentanyl 2ml Vial) 50 mcg PRN Q5MIN PRN IV MODERATE TO SEVERE PAIN Last administered on 08/15/19at 10:17; Start 08/15/19 at 07:00; Stop 08/16/19 at 06:59; Status DC Ringer's Solution 1,000 ml @ 30 mls/hr Q24H IV ; Start 08/15/19 at 07:00; Stop 08/15/19 at 18:59; Status DC Lidocaine HCl (Xylocaine-Mpf 1% 2ml Vial) 2 ml PRN 1X PRN ID PRIOR TO IV START; Start 08/15/19 at 07:00; Stop 08/16/19 at 06:59; Status DC Prochlorperazine Edisylate (Compazine) 5 mg PACU PRN PRN IV NAUSEA, MRX1; Start 08/15/19 at 07:00; Stop 08/16/19 at 06:59; Status DC Sodium Acetate 50 meq/Potassium Acetate 55 meq/ Magnesium Sulfate 20 meq/Calcium Gluconate 10 meq/ Multivitamins 10 ml/Chromium/ Copper/Manganese/ Seleni/Zn 0.5 ml/ Insulin Human Regular 35 unit/ Total Parenteral Nutrition/Amino Acids/Dextrose/ Fat Emulsion Intravenous 1,400 ml @ 58.333 mls/ hr TPN CONT IV ; Start 08/12/19 at 22:00; Stop 08/12/19 at 14:15; Status DC Sodium Acetate 50 meq/Potassium Acetate 55 meq/ Magnesium Sulfate 20 meq/Calcium Gluconate 10 meq/ Multivitamins 10 ml/Chromium/ Copper/Manganese/ Seleni/Zn 0.5 ml/ Insulin Human Regular 35 unit/ Total Parenteral Nutrition/Amino Acids/Dextrose/ Fat Emulsion Intravenous 1,800 ml @ 75 mls/hr TPN CONT IV Last administered on 08/12/19at 22:38; Start 08/12/19 at 22:00; Stop 08/13/19 at 21:59; Status DC Sodium Chloride 1,000 ml @ 1,000 mls/hr Q1H PRN IV hypotension; Start 08/12/19 at 15:31; Stop 08/12/19 at 21:30; Status DC Diphenhydramine HCl (Benadryl) 25 mg 1X PRN PRN IV ITCHING; Start 08/12/19 at 15:45; Stop 08/13/19 at 15:44; Status DC Diphenhydramine HCl (Benadryl) 25 mg 1X PRN PRN IV ITCHING; Start 08/12/19 at 15:45; Stop 08/13/19 at 15:44; Status DC Sodium Chloride 1,000 ml @ 400 mls/hr Q2H30M PRN IV PATENCY; Start 08/12/19 at 15:31; Stop 08/13/19 at 03:30; Status DC Info (PHARMACY MONITORING -- do not chart) 1 each PRN DAILY PRN MC SEE COMMENTS; Start 08/12/19 at 15:45 Sodium Acetate 50 meq/Potassium Acetate 55 meq/ Magnesium Sulfate 20 meq/Calcium Gluconate 10 meq/ Multivitamins 10 ml/Chromium/ Copper/Manganese/ Seleni/Zn 0.5 ml/ Insulin Human Regular 35 unit/ Total Parenteral Nutrition/Amino Acids/Dextrose/ Fat Emulsion Intravenous 1,800 ml @ 75 mls/hr TPN CONT IV Last administered on 08/13/19at 22:03; Start 08/13/19 at 22:00; Stop 08/14/19 at 21:59; Status DC Daptomycin 430 mg/ Sodium Chloride 50 ml @ 100 mls/hr Q24H IV Last administered on 08/15/19at 13:41; Start 08/13/19 at 13:00 Heparin Sodium (Porcine) 1000 unit/Sodium Chloride 1,001 ml @ 1,001 mls/hr 1X ONCE IRR ; Start 08/15/19 at 06:00; Stop 08/15/19 at 06:59; Status DC Potassium Acetate 55 meq/Magnesium Sulfate 20 meq/ Calcium Gluconate 10 meq/ Multivitamins 10 ml/Chromium/ Copper/Manganese/ Seleni/Zn 0.5 ml/ Insulin Human Regular 35 unit/ Total Parenteral Nutrition/Amino Acids/Dextrose/ Fat Emulsion Intravenous 1,920 ml @ 80 mls/hr TPN CONT IV Last administered on 08/14/19at 22:10; Start 08/14/19 at 22:00; Stop 08/15/19 at 21:59; Status DC Dexamethasone Sodium Phosphate (Decadron) 4 mg STK-MED ONCE .ROUTE ; Start 08/15/19 at 10:56; Stop 08/15/19 at 10:57; Status DC Ondansetron HCl (Zofran) 4 mg STK-MED ONCE .ROUTE ; Start 08/15/19 at 10:56; Stop 08/15/19 at 10:57; Status DC Rocuronium [facility] (Zemuron) 50 mg STK-MED ONCE .ROUTE ; Start 08/15/19 at 10:56; Stop 08/15/19 at 10:57; Status DC Fentanyl Citrate (Fentanyl 2ml Vial) 100 mcg STK-MED ONCE .ROUTE ; Start 08/15/19 at 10:56; Stop 08/15/19 at 10:57; Status DC Bupivacaine HCl/ Epinephrine Bitart (Sensorcain-Epi 0.5%-1:[id number] Mpf) 30 ml STK-MED ONCE .ROUTE Last administered on 08/15/19at 12:01; Start 08/15/19 at 10:58; Stop 08/15/19 at 10:58; Status DC Cellulose (Surgicel Hemostat 2x14) 1 each STK-MED ONCE .ROUTE ; Start 08/15/19 at 10:58; Stop 08/15/19 at 10:59; Status DC Iohexol (Omnipaque 300 Mg/ml) 50 ml STK-MED ONCE .ROUTE ; Start 08/15/19 at 10:58; Stop 08/15/19 at 10:59; Status DC Cellulose (Surgicel Hemostat 4x8) 1 each STK-MED ONCE .ROUTE ; Start 08/15/19 at 10:58; Stop 08/15/19 at 10:59; Status DC Bisacodyl (Dulcolax Supp) 10 mg STK-MED ONCE .ROUTE ; Start 08/15/19 at 10:59; Stop 08/15/19 at 10:59; Status DC Heparin Sodium (Porcine) 1000 unit/Sodium Chloride 1,001 ml @ 1,001 mls/hr 1X ONCE IRR ; Start 08/15/19 at 12:00; Stop 08/15/19 at 12:59; Status DC Propofol 20 ml @ As Directed STK-MED ONCE IV ; Start 08/15/19 at 11:05; Stop 08/15/19 at 11:05; Status DC Sevoflurane (Ultane) 90 ml STK-MED ONCE IH ; Start 08/15/19 at 11:05; Stop 08/15/19 at 11:05; Status DC Sevoflurane (Ultane) 60 ml STK-MED ONCE IH ; Start 08/15/19 at 12:26; Stop 08/15/19 at 12:27; Status DC Propofol 20 ml @ As Directed STK-MED ONCE IV ; Start 08/15/19 at 12:26; Stop 08/15/19 at 12:27; Status DC Phenylephrine HCl (PHENYLEPHRINE in 0.9% NACL PF) 1 mg STK-MED ONCE IV ; Start 08/15/19 at 12:34; Stop 08/15/19 at 12:34; Status DC Heparin Sodium (Porcine) (Heparin Sodium) 5,000 unit Q12HR SQ Last administered on 08/15/19at 22:02; Start 08/15/19 at 21:00 Sodium Chloride (Normal Saline Flush) 3 ml QSHIFT PRN IV AFTER MEDS AND BLOOD DRAWS; Start 08/15/19 at 13:45 Naloxone HCl (Narcan) 0.4 mg PRN Q2MIN PRN IV SEE INSTRUCTIONS; Start 08/15/19 at 13:45 Sodium Chloride 1,000 ml @ 25 mls/hr Q24H IV Last administered on 08/15/19at 13:37; Start 08/15/19 at 13:37 Naloxone HCl (Narcan) 0.4 mg PRN Q2MIN PRN IV SEE INSTRUCTIONS; Start 08/15/19 at 14:30; Status UNV Sodium Chloride 1,000 ml @ 25 mls/hr Q24H IV ; Start 08/15/19 at 14:30; Status UNV Hydromorphone HCl 30 ml @ 0 mls/hr CONT PRN PRN IV PER PROTOCOL Last admini stered on 08/15/19at 15:25; Start 08/15/19 at 14:30 Potassium Acetate 55 meq/Magnesium Sulfate 20 meq/ Calcium Gluconate 10 meq/ Multivitamins 10 ml/Chromium/ Copper/Manganese/ Seleni/Zn 0.5 ml/ Insulin Human Regular 35 unit/ Total Parenteral Nutrition/Amino Acids/Dextrose/ Fat Emulsion Intravenous 1,920 ml @ 80 mls/hr TPN CONT IV Last administered on 08/15/19at 22:01; Start 08/15/19 at 22:00; Stop 08/16/19 at 21:59 Active Scripts Active Reported Bisoprolol Fumarate 5 Mg Tablet 10 Mg PO DAILY Vitals/I & O Vital Sign - Last 24 Hours 08/15/19 08/15/19 08/15/19 08/15/19 09:00 09:40 10:00 10:17 Pulse 88 94 Resp 23 27 B/P (MAP) 120/73 (89) 151/82 (105) Pulse Ox 98 100 100 99 O2 Delivery Ventilator Ventilator Ventilator Ventilator 08/15/19 08/15/19 08/15/19 08/15/19 10:47 11:00 11:09 12:59 Pulse 76 Resp 24 B/P (MAP) 155/76 (102) Pulse Ox 99 99 99 93 O2 Delivery Ventilator Ventilator Ventilator Ventilator 08/15/19 08/15/19 08/15/19 08/15/19 13:00 13:00 13:32 14:00 Temp 98.6 98.6 Pulse 103 100 Resp 17 21 19 B/P (MAP) 151/87 (108) 154/76 (102) Pulse Ox 95 94 97 O2 Delivery Mechanical Ventilator Ventilator Ventilator Ventilator 08/15/19 08/15/19 08/15/19 08/15/19 15:00 15:25 15:48 16:00 Pulse 74 Resp 18 B/P (MAP) 97/60 (72) Pulse Ox 96 98 100 O2 Delivery Ventilator Ventilator Ventilator Mechanical Ventilator 08/15/19 08/15/19 08/15/19 08/15/19 16:00 17:00 17:31 18:00 Temp 98.8 98.8 Pulse 72 80 73 Resp 18 17 17 B/P (MAP) 114/66 (82) 153/86 (108) 107/58 (74) Pulse Ox 97 97 98 97 O2 Delivery Ventilator Ventilator Ventilator Ventilator 08/15/19 08/15/19 08/15/19 08/15/19 19:00 20:00 20:00 20:21 Temp 97.9 97.9 Pulse 76 76 Resp 20 18 B/P (MAP) 115/69 (84) 133/81 (98) Pulse Ox 98 97 97 O2 Delivery Ventilator Ventilator Mechanical Ventilator Ventilator 08/15/19 08/15/19 08/15/19 08/15/19 21:00 22:00 23:00 23:53 Pulse 82 72 72 Resp 18 18 18 B/P (MAP) 129/75 (93) 116/60 (78) 118/81 (93) Pulse Ox 96 97 98 98 O2 Delivery Ventilator Ventilator Ventilator Ventilator 08/16/19 08/16/19 08/16/19 08/16/19 00:00 00:00 01:00 02:00 Temp 98.5 98.5 Pulse 70 70 70 Resp 18 21 19 B/P (MAP) 123/71 (88) 113/67 (82) 131/75 (93) Pulse Ox 98 98 98 O2 Delivery Ventilator Mechanical Ventilator Ventilator Ventilator 08/16/19 08/16/19 08/16/19 08/16/19 03:00 03:51 04:00 04:00 Temp 98.7 98.7 Pulse 68 76 Resp 18 18 B/P (MAP) 119/78 (92) 119/76 (90) Pulse Ox 98 98 98 O2 Delivery Ventilator Ventilator Ventilator Mechanical Ventilator 08/16/19 07:42 Pulse Ox 98 O2 Delivery Ventilator Intake and Output 08/15/19 08/15/19 08/16/19 15:00 23:00 07:00 Intake Total 200 ml 2728 ml 542 ml Output Total 985 ml 1175 ml 825 ml Balance -785 ml 1553 ml -283 ml Hemodynamically unstable?: No Is patient in severe pain?: No Is NPO status required?: Yes DAVIN LANDEROS MD Aug 16, 2019 08:05
[2019-08-16] MEDS: PANTOPRAZOLE IV PUSH 40 MG VIAL. IVP SCH (08:39)
[2019-08-16] MEDS: MICAFUNGIN 100 MG in IV DEXTROSE 5% 100ML 100 ML IV SCH (08:39)
[2019-08-16] MEDS: HEPARIN for SUB-Q USE 5,000 UNIT/ML VIAL. SQ SCH ×2 (08:45→22:03)
--- NOTE | 2019-08-16 09:25 | PDOC ---
Infectious Disease Note Subjective: Subjective Patient alert awake Still weak No fevers last 24-hour Remains on vent via trach, TPN Vital Signs: Vital Signs Vital Signs Date Time Temp Pulse Resp B/P (MAP) Pulse Ox O2 Delivery O2 Flow Rate FiO2 08/16/19 07:42 98 Ventilator 08/16/19 06:00 72 18 131/76 (94) 08/16/19 04:00 98.7 98.7 Physical Exam: PHYSICAL EXAM GENERAL: Propped up in bed, sedated weak appearing HEENT: Pupils equal, + NGT, oral cavity dry NECK: Trach/vent LUNGS: rhonchi HEART: S1, S2, regular ABDOMEN: Distended, hypoactive BS, drain placement (08/14 ) : Lind (08/01) EXTREMITIES: Generalized edema, no cyanosis, SCDs bilaterally DERMATOLOGIC: Warm and dry. No generalized rash. CENTRAL NERVOUS SYSTEM: Extremely weak, nods to few simple questions HDC has been removed [facility] (08/01) clean Medications: Inpatient Meds: Current Medications Medications (Trade) Dose Ordered Sig/Yvon Start Time Stop Time Status Last Admin Dose Admin Acetaminophen (Tylenol Supp) 650 mg PRN Q6HRS PRN 07/12/19 10:30 08/15/19 00:32 650 MG Acetaminophen (Tylenol) 650 mg PRN Q6HRS PRN 07/09/19 03:36 08/04/19 19:56 650 MG Albumin Human 200 ml @ 200 mls/hr 1X PRN PRN 08/09/19 08:00 08/09/19 13:59 DC 08/09/19 08:40 200 MLS/HR Albuterol Sulfate (Ventolin Neb Soln) 2.5 mg 1X ONCE 07/05/19 22:30 07/05/19 22:31 DC 07/06/19 00:56 2.5 MG Alteplase, Recombinant (Cathflo For Central Catheter Clearance) 1 mg 1X ONCE 08/12/19 10:45 08/12/19 10:46 DC 08/12/19 11:44 1 MG Amino Acids/ Glycerin/ Electrolytes 1,000 ml @ 75 mls/hr [id number] 08/08/19 21:15 UNV Artificial Tears (Artificial Tears) 1 drop PRN Q1HR PRN 07/11/19 08:15 Atenolol (Tenormin) 100 mg DAILY 07/05/19 09:00 07/04/19 20:08 DC Atropine Sulfate (ATROPINE 0.5mg SYRINGE) 0.5 mg PRN Q5MIN PRN 07/21/19 08:15 Benzocaine (Hurricaine One) 1 spray 1X ONCE 07/08/19 14:30 07/08/19 14:31 DC 07/08/19 16:38 1 SPRAY Bisacodyl (Dulcolax Supp) 10 mg STK-MED ONCE 08/15/19 10:59 08/15/19 10:59 DC Bupivacaine HCl/ Epinephrine Bitart (Sensorcain-Epi 0.5%-1:814530 Mpf) 30 ml STK-MED ONCE 08/15/19 10:58 08/15/19 10:58 DC 08/15/19 12:01 7 ML Calcium Carbonate/ Glycine (Tums) 500 mg PRN [id number] PRN 07/06/19 17:45 Calcium Chloride 1000 mg/Sodium Chloride 110 ml @ 220 mls/hr 1X ONCE 07/05/19 22:30 07/05/19 22:59 DC 07/05/19 22:11 220 MLS/HR Calcium Chloride 3000 mg/Sodium Chloride 1,030 ml @ 50 mls/hr [id number] 07/07/19 08:00 07/09/19 15:23 DC 07/09/19 02:17 50 MLS/HR Calcium Gluconate (Calcium Gluconate) 2,000 mg 1X ONCE 07/07/19 02:15 07/07/19 02:16 DC 07/07/19 02:19 2,000 MG Calcium Gluconate 1000 mg/Sodium Chloride 110 ml @ 220 mls/hr 1X ONCE 07/06/19 03:30 07/06/19 03:59 DC 07/06/19 03:21 220 MLS/HR Calcium Gluconate 2000 mg/Sodium Chloride 120 ml @ 220 mls/hr 1X ONCE 07/06/19 07:30 07/06/19 08:02 DC 07/06/19 09:05 220 MLS/HR Cefepime HCl (Maxipime) 2 gm Q12HR 07/13/19 09:00 07/27/19 09:58 DC 07/26/19 20:56 2 GM Cellulose (Surgicel Fibrillar 1x2) 1 each STK-MED ONCE 07/25/19 11:00 07/25/19 11:01 DC Cellulose (Surgicel Hemostat 2x14) 1 each STK-MED ONCE 08/15/19 10:58 08/15/19 10:59 DC Cellulose (Surgicel Hemostat 4x8) 1 each STK-MED ONCE 08/15/19 10:58 08/15/19 10:59 DC Daptomycin 430 mg/ Sodium Chloride 50 ml @ 100 mls/hr Q24H 08/13/19 13:00 08/15/19 13:41 100 MLS/HR Daptomycin 500 mg/ Sodium Chloride 50 ml @ 100 mls/hr Q48H 07/13/19 08:30 07/29/19 10:07 DC 07/29/19 09:57 100 MLS/HR Dexamethasone Sodium Phosphate (Decadron) 4 mg STK-MED ONCE 08/15/19 10:56 08/15/19 10:57 DC Dexmedetomidine HCl 400 mcg/ Sodium Chloride 100 ml @ 0 mls/hr CONT PRN 07/21/19 08:15 08/16/19 08:47 33 MLS/HR Dextrose (Dextrose 50%-Water Syringe) 12.5 gm PRN Q15MIN PRN 07/04/19 09:30 Digoxin (Lanoxin) 125 mcg 1X ONCE 07/07/19 18:00 07/07/19 18:01 DC 07/07/19 17:10 125 MCG Diphenhydramine HCl (Benadryl) 25 mg 1X PRN PRN 08/12/19 15:45 08/13/19 15:44 DC Enoxaparin Sodium (Lovenox 100mg Syringe) 100 mg Q12HR 08/09/19 21:00 UNV Etomidate (Amidate) 8 mg 1X ONCE 07/11/19 08:30 07/11/19 08:31 DC 07/11/19 08:33 8 MG Fentanyl Citrate (Fentanyl 2ml Vial) 100 mcg STK-MED ONCE 08/15/19 10:56 08/15/19 10:57 DC Furosemide (Lasix) 40 mg 1X ONCE 08/01/19 14:30 08/01/19 14:31 DC 08/01/19 14:39 40 MG Heparin Sodium (Porcine) (Hep Lock Adult) 500 unit STK-MED ONCE 07/26/19 09:29 07/26/19 09:30 DC Heparin Sodium (Porcine) (Heparin Sodium) 5,000 unit Q12HR 08/15/19 21:00 08/16/19 08:45 5,000 UNIT Heparin Sodium (Porcine) 1000 unit/Sodium Chloride 1,001 ml @ 1,001 mls/hr 1X ONCE 08/15/19 12:00 08/15/19 12:59 DC Hydromorphone HCl 30 ml @ 0 mls/hr CONT PRN PRN 08/15/19 14:30 08/15/19 15:25 0 MLS/HR Hydromorphone HCl (Dilaudid) 1 mg PRN Q3HRS PRN 07/05/19 12:00 07/19/19 00:25 DC 07/11/19 05:13 1 MG Info (CONTRAST GIVEN -- Rx MONITORING) 1 each PRN DAILY PRN 07/18/19 11:45 07/20/19 11:44 DC Info (Icu Electrolyte Protocol) 1 ea CONT PRN PRN 07/17/19 13:15 Info (PHARMACY MONITORING -- do not chart) 1 each PRN DAILY PRN 08/12/19 15:45 Info (Tpn Per Pharmacy) 1 each PRN DAILY PRN 07/06/19 12:30 UNV Insulin Human Lispro (HumaLOG) 0-9 UNITS Q6HRS 07/04/19 09:30 08/16/19 08:42 4 UNITS Insulin Human Regular (HumuLIN R VIAL) 5 unit 1X ONCE 07/05/19 22:30 07/05/19 22:31 DC 07/05/19 22:14 5 UNIT Iohexol (Omnipaque 240 Mg/ml) 30 ml 1X ONCE 07/18/19 11:30 07/18/19 11:33 DC 07/18/19 11:30 30 ML Iohexol (Omnipaque 300 Mg/ml) 50 ml STK-MED ONCE 08/15/19 10:58 08/15/19 10:59 DC Iohexol (Omnipaque 350 Mg/ml) 90 ml 1X ONCE 07/04/19 03:30 07/04/19 03:31 DC 07/04/19 03:25 90 ML Ketorolac Tromethamine (Toradol 30mg Vial) 30 mg 1X ONCE 07/04/19 03:00 07/04/19 03:01 DC 07/04/19 02:54 30 MG Lidocaine HCl (Buffered Lidocaine 1%) 6 ml 1X ONCE 08/03/19 13:30 08/03/19 13:31 DC 08/03/19 13:45 9 ML Lidocaine HCl (Glydo (Lidocaine) Jelly) 1 ramu 1X ONCE 07/08/19 14:30 07/08/19 14:31 DC 07/08/19 16:38 1 RAMU Lidocaine HCl (Xylocaine-Mpf 1% 2ml Vial) 2 ml PRN 1X PRN 08/15/19 07:00 08/16/19 06:59 DC Linezolid/Dextrose 300 ml @ 300 mls/hr Q12HR 07/29/19 11:00 08/09/19 08:10 DC 08/08/19 20:40 300 MLS/HR Lorazepam (Ativan Inj) 1 mg PRN Q4HRS PRN 07/07/19 09:00 08/05/19 09:19 DC 08/05/19 03:51 1 MG Magnesium Sulfate 50 ml @ 25 mls/hr PRN DAILY PRN 07/24/19 09:15 08/08/19 17:27 25 MLS/HR Meropenem 1 gm/ Sodium Chloride 100 ml @ 200 mls/hr Q8HRS 07/05/19 20:00 07/06/19 08:48 DC 07/06/19 05:45 200 MLS/HR Meropenem 500 mg/ Sodium Chloride 50 ml @ 100 mls/hr Q12H 07/27/19 10:00 08/15/19 22:00 100 MLS/HR Metoprolol Tartrate (Lopressor Vial) 5 mg Q6HRS 07/05/19 10:15 07/16/19 08:48 DC 07/14/19 00:12 5 MG Metronidazole 100 ml @ 100 mls/hr Q8HRS 08/02/19 10:00 08/09/19 08:10 DC 08/09/19 06:04 100 MLS/HR Micafungin Sodium 100 mg/Dextrose 100 ml @ 100 mls/hr Q24H 07/11/19 09:00 08/16/19 08:39 100 MLS/HR Midazolam HCl (Versed) 5 mg 1X ONCE 07/11/19 08:30 07/11/19 08:31 DC Midazolam HCl 100 mg/Sodium Chloride 100 ml @ 7 mls/hr CONT PRN 07/16/19 16:00 07/27/19 15:35 7 MLS/HR Midazolam HCl 50 mg/Sodium Chloride 50 ml @ 0 mls/hr CONT PRN 07/11/19 08:15 07/16/19 15:59 DC 07/14/19 22:39 7 MLS/HR Morphine Sulfate (Morphine Sulfate) 2 mg PRN Q2HR PRN 07/04/19 05:00 07/05/19 14:15 DC 07/05/19 12:26 2 MG Multi-Ingred Cream/Lotion/Oil/ Oint (Artificial Tears Eye Ointment) 1 ramu PRN Q1HR PRN 07/13/19 17:30 08/01/19 08:19 1 RAMU Naloxone HCl (Narcan) 0.4 mg PRN Q2MIN PRN 08/15/19 14:30 UNV Norepinephrine Bitartrate 8 mg/ Dextrose 258 ml @ 17.299 mls/ hr CONT PRN 07/05/19 15:30 08/05/19 09:19 DC 08/02/19 12:48 20.9 MLS/HR Ondansetron HCl (Zofran) 4 mg STK-MED ONCE 08/15/19 10:56 08/15/19 10:57 DC Pantoprazole Sodium (PROTONIX VIAL for IV PUSH) 40 mg DAILYAC 07/04/19 11:30 08/16/19 08:39 40 MG Phenylephrine HCl (PHENYLEPHRINE in 0.9% NACL PF) 1 mg STK-MED ONCE 08/15/19 12:34 08/15/19 12:34 DC Piperacillin Sod/ Tazobactam Sod 4.5 gm/Sodium Chloride 100 ml @ 200 mls/hr 1X ONCE 07/04/19 06:00 07/04/19 06:29 DC 07/04/19 05:44 200 MLS/HR Potassium Chloride 15 meq/ Bicarbonate Dialysis Soln w/ out KCl 5,007.5 ml @ 1,000 mls/ hr Q5H1M 07/17/19 20:00 07/21/19 13:08 DC 07/20/19 18:14 1,000 MLS/HR Potassium Chloride 20 meq/ Bicarbonate Dialysis Soln w/ out KCl 5,010 ml @ 1,000 mls/hr Q5H1M 07/13/19 16:00 07/17/19 19:59 DC 07/17/19 14:54 1,000 MLS/HR Potassium Chloride/Water 100 ml @ 100 mls/hr 1X ONCE 08/06/19 14:45 08/06/19 15:44 DC 08/06/19 17:28 100 MLS/HR Potassium Phosphate 20 mmol/ Sodium Chloride 106.6667 ml @ 51.667 m... 1X ONCE 07/13/19 13:00 07/13/19 15:03 DC 07/13/19 12:51 51.667 MLS/HR Potassium Acetate 55 meq/Magnesium Sulfate 20 meq/ Calcium Gluconate 10 meq/ Multivitamins 10 ml/Chromium/ Copper/Manganese/ Seleni/Zn 0.5 ml/ Insulin Human Regular 35 unit/ Total Parenteral Nutrition/Amino Acids/Dextrose/ Fat Emulsion Intravenous 1,920 ml @ 80 mls/hr TPN CONT 08/15/19 22:00 08/16/19 21:59 08/15/19 22:01 80 MLS/HR Prochlorperazine Edisylate (Compazine) 5 mg PACU PRN PRN 08/15/19 07:00 08/16/19 06:59 DC Propofol 20 ml @ As Directed STK-MED ONCE 08/15/19 12:26 08/15/19 12:27 DC Ringer's Solution 1,000 ml @ 30 mls/hr Q24H 08/15/19 07:00 08/15/19 18:59 DC Rocuronium [place] (Zemuron) 50 mg STK-MED ONCE 08/15/19 10:56 08/15/19 10:57 DC Sevoflurane (Ultane) 60 ml STK-MED ONCE 08/15/19 12:26 08/15/19 12:27 DC Sodium Bicarbonate 50 meq/Sodium Chloride 1,050 ml @ 75 mls/hr Q14H 07/06/19 07:30 07/11/19 10:28 DC 07/10/19 21:10 75 MLS/HR Sodium Acetate 50 meq/Potassium Acetate 55 meq/ Magnesium Sulfate 20 meq/Calcium Gluconate 10 meq/ Multivitamins 10 ml/Chromium/ Copper/Manganese/ Seleni/Zn 0.5 ml/ Insulin Human Regular 35 unit/ Total Parenteral Nutrition/Amino Acids/Dextrose/ Fat Emulsion Intravenous 1,800 ml @ 75 mls/hr TPN CONT 08/13/19 22:00 08/14/19 21:59 DC 08/13/19 22:03 75 MLS/HR Sodium Chloride 1,000 ml @ 25 mls/hr Q24H 08/15/19 14:30 UNV Sodium Chloride (Normal Saline Flush) 3 ml QSHIFT PRN 08/15/19 13:45 Sodium Chloride 90 meq/Calcium Gluconate 10 meq/ Multivitamins 10 ml/Chromium/ Copper/Manganese/ Seleni/Zn 0.5 ml/ Total Parenteral Nutrition/Amino Acids/Dextrose/ Fat Emulsion Intravenous 1,512 ml @ 63 mls/hr TPN CONT 07/06/19 22:00 07/07/19 21:59 DC 07/06/19 22:06 63 MLS/HR Sodium Chloride 90 meq/Calcium Gluconate 10 meq/ Multivitamins 10 ml/Chromium/ Copper/Manganese/ Seleni/Zn 1 ml/ Total Parenteral Nutrition/Amino Acids/Dextrose/ Fat Emulsion Intravenous 55.005 ml @ 2.292 mls/hr TPN CONT 07/06/19 22:00 07/06/19 12:33 DC Sodium Chloride 90 meq/Magnesium Sulfate 10 meq/ Calcium Gluconate 20 meq/ Multivitamins 10 ml/Chromium/ Copper/Manganese/ Seleni/Zn 0.5 ml/ Total Parenteral Nutrition/Amino Acids/Dextrose/ Fat Emulsion Intravenous 1,512 ml @ 63 mls/hr TPN CONT 07/07/19 22:00 07/08/19 21:59 DC 07/07/19 22:25 63 MLS/HR Sodium Chloride 90 meq/Magnesium Sulfate 12 meq/ Calcium Gluconate 15 meq/ Multivitamins 10 ml/Chromium/ Copper/Manganese/ Seleni/Zn 0.5 ml/ Insulin Human Regular 25 unit/ Total Parenteral Nutrition/Amino Acids/Dextrose/ Fat Emulsion Intravenous 1,400 ml @ 58.333 mls/ hr TPN CONT 07/27/19 22:00 07/28/19 21:59 DC 07/27/19 21:41 58.333 MLS/HR Sodium Chloride 90 meq/Potassium Chloride 15 meq/ Magnesium Sulfate 12 meq/Calcium Gluconate 15 meq/ Multivitamins 10 ml/Chromium/ Copper/Manganese/ Seleni/Zn 0.5 ml/ Insulin Human Regular 25 unit/ Total Parenteral Nutrition/Amino Acids/Dextrose/ Fat Emulsion Intravenous 1,400 ml @ 58.333 mls/ hr TPN CONT 07/26/19 22:00 07/27/19 21:59 DC 07/26/19 22:13 58.333 MLS/HR Sodium Chloride 90 meq/Potassium Chloride 15 meq/ Potassium Phosphate 10 mmol/ Magnesium Sulfate 8 meq/Calcium Gluconate 15 meq/ Multivitamins 10 ml/Chromium/ Copper/Manganese/ Seleni/Zn 0.5 ml/ Insulin Human Regular 25 unit/ Total Parenteral Nutrition/Amino Acids/Dextrose/ Fat Emulsion Intravenous 1,400 ml @ 58.333 mls/ hr TPN CONT 07/24/19 22:00 07/25/19 21:59 DC 07/24/19 21:20 58.333 MLS/HR Sodium Chloride 90 meq/Potassium Chloride 15 meq/ Potassium Phosphate 10 mmol/ Magnesium Sulfate 10 meq/Calcium Gluconate 20 meq/ Multivitamins 10 ml/Chromium/ Copper/Manganese/ Seleni/Zn 0.5 ml/ Total Parenteral Nutrition/Amino Acids/Dextrose/ Fat Emulsion Intravenous 1,400 ml @ 58.333 mls/ hr TPN CONT 07/11/19 22:00 07/12/19 21:59 DC 07/11/19 21:42 58.333 MLS/HR Sodium Chloride 90 meq/Potassium Chloride 15 meq/ Potassium Phosphate 10 mmol/ Magnesium Sulfate 12 meq/Calcium Gluconate 15 meq/ Multivitamins 10 ml/Chromium/ Copper/Manganese/ Seleni/Zn 0.5 ml/ Insulin Human Regular 25 unit/ Total Parenteral Nutrition/Amino Acids/Dextrose/ Fat Emulsion Intravenous 1,400 ml @ 58.333 mls/ hr TPN CONT 07/25/19 22:00 07/26/19 21:59 DC 07/25/19 22:24 58.333 MLS/HR Sodium Chloride 90 meq/Potassium Chloride 15 meq/ Potassium Phosphate 15 mmol/ Magnesium Sulfate 10 meq/Calcium Gluconate 15 meq/ Multivitamins 10 ml/Chromium/ Copper/Manganese/ Seleni/Zn 0.5 ml/ Total Parenteral Nutrition/Amino Acids/Dextrose/ Fat Emulsion Intravenous 1,400 ml @ 58.333 mls/ hr TPN CONT 07/12/19 22:00 07/13/19 21:59 DC 07/12/19 22:17 58.333 MLS/HR Sodium Chloride 90 meq/Potassium Chloride 15 meq/ Potassium Phosphate 15 mmol/ Magnesium Sulfate 10 meq/Calcium Gluconate 20 meq/ Multivitamins 10 ml/Chromium/ Copper/Manganese/ Seleni/Zn 0.5 ml/ Total Parenteral Nutrition/Amino Acids/Dextrose/ Fat Emulsion Intravenous 1,200 ml @ 50 mls/hr TPN CONT 07/10/19 22:00 07/10/19 14:17 DC Sodium Chloride 90 meq/Potassium Chloride 15 meq/ Potassium Phosphate 18 mmol/ Magnesium Sulfate 8 meq/Calcium Gluconate 15 meq/ Multivitamins 10 ml/Chromium/ Copper/Manganese/ Seleni/Zn 0.5 ml/ Insulin Human Regular 10 unit/ Total Parenteral Nutrition/Amino Acids/Dextrose/ Fat Emulsion Intravenous 1,400 ml @ 58.333 mls/ hr TPN CONT 07/15/19 22:00 07/16/19 21:59 DC 07/15/19 21:43 58.333 MLS/HR Sodium Chloride 90 meq/Potassium Chloride 15 meq/ Potassium Phosphate 18 mmol/ Magnesium Sulfate 8 meq/Calcium Gluconate 15 meq/ Multivitamins 10 ml/Chromium/ Copper/Manganese/ Seleni/Zn 0.5 ml/ Insulin Human Regular 15 unit/ Total Parenteral Nutrition/Amino Acids/Dextrose/ Fat Emulsion Intravenous 1,400 ml @ 58.333 mls/ hr TPN CONT 07/18/19 22:00 07/19/19 21:59 DC 07/18/19 21:47 58.333 MLS/HR Sodium Chloride 90 meq/Potassium Chloride 15 meq/ Potassium Phosphate 18 mmol/ Magnesium Sulfate 8 meq/Calcium Gluconate 15 meq/ Multivitamins 10 ml/Chromium/ Copper/Manganese/ Seleni/Zn 0.5 ml/ Insulin Human Regular 20 unit/ Total Parenteral Nutrition/Amino Acids/Dextrose/ Fat Emulsion Intravenous 1,400 ml @ 58.333 mls/ hr TPN CONT 07/21/19 22:00 07/22/19 21:59 DC 07/21/19 22:45 58.333 MLS/HR Sodium Chloride 90 meq/Potassium Chloride 15 meq/ Potassium Phosphate 18 mmol/ Magnesium Sulfate 8 meq/Calcium Gluconate 15 meq/ Multivitamins 10 ml/Chromium/ Copper/Manganese/ Seleni/Zn 0.5 ml/ Total Parenteral Nutrition/Amino Acids/Dextrose/ Fat Emulsion Intravenous 1,400 ml @ 58.333 mls/ hr TPN CONT 07/14/19 22:00 07/15/19 21:59 DC 07/14/19 22:00 58.333 MLS/HR Sodium Chloride 90 meq/Potassium Phosphate 15 mmol/ Magnesium Sulfate 12 meq/Calcium Gluconate 15 meq/ Multivitamins 10 ml/Chromium/ Copper/Manganese/ Seleni/Zn 0.5 ml/ Insulin Human Regular 30 unit/ Total Parenteral Nutrition/Amino Acids/Dextrose/ Fat Emulsion Intravenous 1,400 ml @ 58.333 mls/ hr TPN CONT 07/29/19 22:00 07/30/19 21:59 DC 07/29/19 21:49 58.333 MLS/HR Sodium Chloride 90 meq/Potassium Phosphate 15 mmol/ Magnesium Sulfate 12 meq/Calcium Gluconate 15 meq/ Multivitamins 10 ml/Chromium/ Copper/Manganese/ Seleni/Zn 0.5 ml/ Insulin Human Regular 40 unit/ Total Parenteral Nutrition/Amino Acids/Dextrose/ Fat Emulsion Intravenous 1,400 ml @ 58.333 mls/ hr TPN CONT 07/30/19 22:00 07/31/19 21:59 DC 07/30/19 21:21 58.333 MLS/HR Sodium Chloride 90 meq/Potassium Phosphate 19 mmol/ Magnesium Sulfate 12 meq/Calcium Gluconate 15 meq/ Multivitamins 10 ml/Chromium/ Copper/Manganese/ Seleni/Zn 0.5 ml/ Insulin Human Regular 40 unit/ Total Parenteral Nutrition/Amino Acids/Dextrose/ Fat Emulsion Intravenous 1,400 ml @ 58.333 mls/ hr TPN CONT 07/31/19 22:00 08/01/19 21:59 DC 07/31/19 21:54 58.333 MLS/HR Sodium Chloride 90 meq/Potassium Phosphate 5 mmol/ Magnesium Sulfate 12 meq/Calcium Gluconate 15 meq/ Multivitamins 10 ml/Chromium/ Copper/Manganese/ Seleni/Zn 0.5 ml/ Insulin Human Regular 30 unit/ Total Parenteral Nutrition/Amino Acids/Dextrose/ Fat Emulsion Intravenous 1,400 ml @ 58.333 mls/ hr TPN CONT 07/28/19 22:00 07/29/19 21:59 DC 07/28/19 22:08 58.333 MLS/HR Sodium Chloride 100 meq/Potassium Chloride 40 meq/ Magnesium Sulfate 15 meq/Calcium Gluconate 15 meq/ Multivitamins 10 ml/Chromium/ Copper/Manganese/ Seleni/Zn 0.5 ml/ Insulin Human Regular 35 unit/ Total Parenteral Nutrition/Amino Acids/Dextrose/ Fat Emulsion Intravenous 1,400 ml @ 58.333 mls/ hr TPN CONT 08/07/19 22:00 08/08/19 21:59 DC 08/07/19 22:46 58.333 MLS/HR Sodium Chloride 100 meq/Potassium Chloride 40 meq/ Magnesium Sulfate 20 meq/Calcium Gluconate 10 meq/ Multivitamins 10 ml/Chromium/ Copper/Manganese/ Seleni/Zn 0.5 ml/ Insulin Human Regular 35 unit/ Total Parenteral Nutrition/Amino Acids/Dextrose/ Fat Emulsion Intravenous 1,400 ml @ 58.333 mls/ hr TPN CONT 08/11/19 22:00 08/12/19 21:59 DC 08/12/19 00:06 58.333 MLS/HR Sodium Chloride 100 meq/Potassium Chloride 40 meq/ Magnesium Sulfate 20 meq/Calcium Gluconate 15 meq/ Multivitamins 10 ml/Chromium/ Copper/Manganese/ Seleni/Zn 0.5 ml/ Insulin Human Regular 35 unit/ Total Parenteral Nutrition/Amino Acids/Dextrose/ Fat Emulsion Intravenous 1,400 ml @ 58.333 mls/ hr TPN CONT 08/10/19 22:00 08/11/19 21:59 DC 08/10/19 22:27 58.333 MLS/HR Sodium Chloride 100 meq/Potassium Phosphate 10 mmol/ Magnesium Sulfate 12 meq/Calcium Gluconate 15 meq/ Multivitamins 10 ml/Chromium/ Copper/Manganese/ Seleni/Zn 0.5 ml/ Insulin Human Regular 35 unit/ Potassium Chloride 20 meq/ Total Parenteral Nutrition/Amino Acids/Dextrose/ Fat Emulsion Intravenous 1,400 ml @ 58.333 mls/ hr TPN CONT 08/04/19 22:00 08/05/19 21:59 DC 08/04/19 22:10 58.333 MLS/HR Sodium Chloride 100 meq/Potassium Phosphate 19 mmol/ Magnesium Sulfate 12 meq/Calcium Gluconate 15 meq/ Multivitamins 10 ml/Chromium/ Copper/Manganese/ Seleni/Zn 0.5 ml/ Insulin Human Regular 40 unit/ Potassium Chloride 20 meq/ Total Parenteral Nutrition/Amino Acids/Dextrose/ Fat Emulsion Intravenous 1,400 ml @ 58.333 mls/ hr TPN CONT 08/03/19 22:00 08/04/19 21:59 DC 08/03/19 21:20 58.333 MLS/HR Sodium Chloride 100 meq/Potassium Phosphate 5 mmol/ Magnesium Sulfate 12 meq/Calcium Gluconate 15 meq/ Multivitamins 10 ml/Chromium/ Copper/Manganese/ Seleni/Zn 0.5 ml/ Insulin Human Regular 35 unit/ Potassium Chloride 20 meq/ Total Parenteral Nutrition/Amino Acids/Dextrose/ Fat Emulsion Intravenous 1,400 ml @ 58.333 mls/ hr TPN CONT 08/05/19 22:00 08/06/19 21:59 DC 08/05/19 22:59 58.333 MLS/HR Succinylcholine Chloride (Anectine) 120 mg 1X ONCE 07/11/19 08:30 07/11/19 08:31 DC 07/11/19 08:34 120 MG Labs: Lab Laboratory Tests Test 08/15/19 13:40 08/15/19 18:04 08/16/19 00:57 08/16/19 07:00 Glucose (Fingerstick) 163 mg/dL (70-99) 208 mg/dL (70-99) 208 mg/dL (70-99) White Blood Count 6.3 x10^3/uL (4.0-11.0) Red Blood Count 4.12 x10^6/uL (3.50-5.40) Hemoglobin 12.1 g/dL (12.0-15.5) Hematocrit 37.5 % (36.0-47.0) Mean Corpuscular Volume 91 fL (79-100) Mean Corpuscular Hemoglobin 29 pg (25-35) Mean Corpuscular Hemoglobin Concent 32 g/dL (31-37) Red Cell Distribution Width 18.3 % (11.5-14.5) Platelet Count 267 x10^3/uL (140-400) Neutrophils (%) (Auto) 74 % (31-73) Lymphocytes (%) (Auto) 20 % (24-48) Monocytes (%) (Auto) 5 % (0-9) Eosinophils (%) (Auto) 0 % (0-3) Basophils (%) (Auto) 0 % (0-3) Neutrophils # (Auto) 4.7 x10^3/uL (1.8-7.7) Lymphocytes # (Auto) 1.3 x10^3/uL (1.0-4.8) Monocytes # (Auto) 0.3 x10^3/uL (0.0-1.1) Eosinophils # (Auto) 0.0 x10^3/uL (0.0-0.7) Basophils # (Auto) 0.0 x10^3/uL (0.0-0.2) Sodium Level 150 mmol/L (136-145) Potassium Level 3.9 mmol/L (3.5-5.1) Chloride Level 111 mmol/L (98-107) Carbon Dioxide Level 28 mmol/L (21-32) Anion Gap 11 (6-14) Blood Urea Nitrogen 63 mg/dL (7-20) Creatinine 0.9 mg/dL (0.6-1.0) Estimated GFR (Cockcroft-Gault) 66.5 Glucose Level 162 mg/dL (70-99) Calcium Level 8.8 mg/dL (8.5-10.1) Iron Level 23 ug/dL (50-170) Total Iron Binding Capacity 76 ug/dL (250-450) Iron Saturation 30 % (15-34) Objective: Assessment: Fever resolving Acute pancreatitis with persistent necrosis CT a/p 07/27 Increased ascites. 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 Leucocytosis improving JUANA,Hyperkalemia, Metabolic acidosis off dialysis Acute hypoxic resp failure ,bilateral pleural effusion and atelectasis hypocalcemia Prediabetes HTN s/p trach Plan: Plan of Care cont merrem (07/26), micafungin, daptomycin (zyvox changed to dapto (08/09), to rule out serotonin sy causing fever) Monitor for abx toxicities. Maintain aspiration precautions PT and OT as tolerated D/w nursing Critically ill YUNIOR JONES MD Aug 16, 2019 09:25
--- NOTE | 2019-08-16 09:27 | PDOC ---
Subjective: Subjective: Indicates feeling "so-so." Asks when she can drink. Objective: Objective: Nurse present - more alert today, no fever, hasn't stooled in a couple days. Vital Signs: Vital Signs Date Time Temp Pulse Resp B/P (MAP) Pulse Ox O2 Delivery O2 Flow Rate FiO2 08/16/19 07:42 98 Ventilator 08/16/19 06:00 72 18 131/76 (94) 08/16/19 04:00 98.7 98.7 Labs: Laboratory Tests Test 08/15/19 13:40 08/15/19 18:04 08/16/19 00:57 08/16/19 07:00 Glucose (Fingerstick) 163 mg/dL 208 mg/dL 208 mg/dL White Blood Count 6.3 x10^3/uL Red Blood Count 4.12 x10^6/uL Hemoglobin 12.1 g/dL Hematocrit 37.5 % Mean Corpuscular Volume 91 fL Mean Corpuscular Hemoglobin 29 pg Mean Corpuscular Hemoglobin Concent 32 g/dL Red Cell Distribution Width 18.3 % Platelet Count 267 x10^3/uL Neutrophils (%) (Auto) 74 % Lymphocytes (%) (Auto) 20 % Monocytes (%) (Auto) 5 % Eosinophils (%) (Auto) 0 % Basophils (%) (Auto) 0 % Neutrophils # (Auto) 4.7 x10^3/uL Lymphocytes # (Auto) 1.3 x10^3/uL Monocytes # (Auto) 0.3 x10^3/uL Eosinophils # (Auto) 0.0 x10^3/uL Basophils # (Auto) 0.0 x10^3/uL Sodium Level 150 mmol/L Potassium Level 3.9 mmol/L Chloride Level 111 mmol/L Carbon Dioxide Level 28 mmol/L Anion Gap 11 Blood Urea Nitrogen 63 mg/dL Creatinine 0.9 mg/dL Estimated GFR (Cockcroft-Gault) 66.5 Glucose Level 162 mg/dL Calcium Level 8.8 mg/dL Iron Level 23 ug/dL Total Iron Binding Capacity 76 ug/dL Iron Saturation 30 % PE: GEN: NAD LUNGS: trach/vent HEART: RRR ABD: occasional groan, distended (less?) NEURO/PSYCH: much more alert A/P: Necrotizing pancreatitis s/p laparoscopic exploration - reviewed OR note: 1000 cc ascites suctioned off, cultures sent, diffuse debris, obliteration of surgical planes preventing any meaningful exploration -- More alert today, asking about PO intake. Hemodynamically unstable?: No Is patient in severe pain?: No Is NPO status required?: Yes CYNDEE FALCON Aug 16, 2019 09:27
--- NOTE | 2019-08-16 10:23 | NUR ---
SS following up with discharge planning. SS, life care planner, Karla, and RN, Echo, met with pt to discuss discharge planning. As observed, Geri, is nonverbal but is able to understand and is able to point. SS discussed discharge planning with Geri and notified Geri that at this time she is over income for Medicaid and will need to discharge to home with family when stable for discharge. Geri nodded in understanding. capacity planner and SS provided Geri with a list of names of all of her family members and when asked who she wanted to live with she acknowledged that she wants her and her son to live with Marce. When asked who she wants to make decisions for her she acknowledged that she wants daughters, Norma and Marce, to be 50% decision makers. She also acknowledged that she wants her boyfriend Jamaal to be allowed to visit with her. SS left voicemail for Marce this morning to discuss discharge planning. SS and life care planner will continue to reach out to Marce and communicate with Geri. Pt's RN present during visit and notified.
[2019-08-16] MEDS: MEROPENEM 500 MG in IV NORMAL SALINE 50ML 50 ML IV SCH (10:45)
--- NOTE | 2019-08-16 11:13 | PDOC ---
PULMONARY PROGRESS NOTES Subjective Patient intubated on 07/10 , s/p trach 07/24, on vent Taken to the OR 08/14, NO SURGERY DONE / NOT A CANDIDATE Vitals Vital Signs Date Time Temp Pulse Resp B/P (MAP) Pulse Ox O2 Delivery O2 Flow Rate FiO2 08/16/19 10:49 97 Ventilator 08/16/19 06:00 72 18 131/76 (94) 08/16/19 04:00 98.7 98.7 Comments ros unable to obtain on vent General: Alert HEENT: Other (nc at perrl nose clear nech trach site ok no lad no thyromegaly) Lungs: Crackles, Other (dimished in BLL nc at perrl nose clear neck trach site ok no lad no thyromegaly) Cardiovascular: S1, S2 Abdomen: Soft, Non-tender, Other (distended) Neuro Exam: Alert Extremities: Other (+3 generalized edema ) Skin: Warm, Dry Labs Laboratory Tests Test 08/14/19 12:09 08/14/19 17:28 08/15/19 00:41 08/15/19 04:30 Glucose (Fingerstick) 148 mg/dL (70-99) 144 mg/dL (70-99) 134 mg/dL (70-99) White Blood Count 9.2 x10^3/uL (4.0-11.0) Red Blood Count 2.72 x10^6/uL (3.50-5.40) Hemoglobin 8.2 g/dL (12.0-15.5) Hematocrit 24.6 % (36.0-47.0) Mean Corpuscular Volume 90 fL (79-100) Mean Corpuscular Hemoglobin 30 pg (25-35) Mean Corpuscular Hemoglobin Concent 33 g/dL (31-37) Red Cell Distribution Width 18.4 % (11.5-14.5) Platelet Count 323 x10^3/uL (140-400) Neutrophils (%) (Auto) 78 % (31-73) Lymphocytes (%) (Auto) 15 % (24-48) Monocytes (%) (Auto) 6 % (0-9) Eosinophils (%) (Auto) 1 % (0-3) Basophils (%) (Auto) 0 % (0-3) Neutrophils # (Auto) 7.1 x10^3/uL (1.8-7.7) Lymphocytes # (Auto) 1.4 x10^3/uL (1.0-4.8) Monocytes # (Auto) 0.5 x10^3/uL (0.0-1.1) Eosinophils # (Auto) 0.1 x10^3/uL (0.0-0.7) Basophils # (Auto) 0.0 x10^3/uL (0.0-0.2) Sodium Level 149 mmol/L (136-145) Potassium Level 3.6 mmol/L (3.5-5.1) Chloride Level 111 mmol/L (98-107) Carbon Dioxide Level 30 mmol/L (21-32) Anion Gap 8 (6-14) Blood Urea Nitrogen 57 mg/dL (7-20) Creatinine 1.1 mg/dL (0.6-1.0) Estimated GFR (Cockcroft-Gault) 52.8 Glucose Level 123 mg/dL (70-99) Calcium Level 8.5 mg/dL (8.5-10.1) Creatine Kinase 24 U/L (26-192) Test 08/15/19 13:40 08/15/19 18:04 08/16/19 00:57 08/16/19 07:00 Glucose (Fingerstick) 163 mg/dL (70-99) 208 mg/dL (70-99) 208 mg/dL (70-99) White Blood Count 6.3 x10^3/uL (4.0-11.0) Red Blood Count 4.12 x10^6/uL (3.50-5.40) Hemoglobin 12.1 g/dL (12.0-15.5) Hematocrit 37.5 % (36.0-47.0) Mean Corpuscular Volume 91 fL (79-100) Mean Corpuscular Hemoglobin 29 pg (25-35) Mean Corpuscular Hemoglobin Concent 32 g/dL (31-37) Red Cell Distribution Width 18.3 % (11.5-14.5) Platelet Count 267 x10^3/uL (140-400) Neutrophils (%) (Auto) 74 % (31-73) Lymphocytes (%) (Auto) 20 % (24-48) Monocytes (%) (Auto) 5 % (0-9) Eosinophils (%) (Auto) 0 % (0-3) Basophils (%) (Auto) 0 % (0-3) Neutrophils # (Auto) 4.7 x10^3/uL (1.8-7.7) Lymphocytes # (Auto) 1.3 x10^3/uL (1.0-4.8) Monocytes # (Auto) 0.3 x10^3/uL (0.0-1.1) Eosinophils # (Auto) 0.0 x10^3/uL (0.0-0.7) Basophils # (Auto) 0.0 x10^3/uL (0.0-0.2) Sodium Level 150 mmol/L (136-145) Potassium Level 3.9 mmol/L (3.5-5.1) Chloride Level 111 mmol/L (98-107) Carbon Dioxide Level 28 mmol/L (21-32) Anion Gap 11 (6-14) Blood Urea Nitrogen 63 mg/dL (7-20) Creatinine 0.9 mg/dL (0.6-1.0) Estimated GFR (Cockcroft-Gault) 66.5 Glucose Level 162 mg/dL (70-99) Calcium Level 8.8 mg/dL (8.5-10.1) Iron Level 23 ug/dL (50-170) Total Iron Binding Capacity 76 ug/dL (250-450) Iron Saturation 30 % (15-34) Laboratory Tests Test 08/15/19 13:40 08/15/19 18:04 08/16/19 00:57 08/16/19 07:00 Glucose (Fingerstick) 163 mg/dL (70-99) 208 mg/dL (70-99) 208 mg/dL (70-99) White Blood Count 6.3 x10^3/uL (4.0-11.0) Red Blood Count 4.12 x10^6/uL (3.50-5.40) Hemoglobin 12.1 g/dL (12.0-15.5) Hematocrit 37.5 % (36.0-47.0) Mean Corpuscular Volume 91 fL (79-100) Mean Corpuscular Hemoglobin 29 pg (25-35) Mean Corpuscular Hemoglobin Concent 32 g/dL (31-37) Red Cell Distribution Width 18.3 % (11.5-14.5) Platelet Count 267 x10^3/uL (140-400) Neutrophils (%) (Auto) 74 % (31-73) Lymphocytes (%) (Auto) 20 % (24-48) Monocytes (%) (Auto) 5 % (0-9) Eosinophils (%) (Auto) 0 % (0-3) Basophils (%) (Auto) 0 % (0-3) Neutrophils # (Auto) 4.7 x10^3/uL (1.8-7.7) Lymphocytes # (Auto) 1.3 x10^3/uL (1.0-4.8) Monocytes # (Auto) 0.3 x10^3/uL (0.0-1.1) Eosinophils # (Auto) 0.0 x10^3/uL (0.0-0.7) Basophils # (Auto) 0.0 x10^3/uL (0.0-0.2) Sodium Level 150 mmol/L (136-145) Potassium Level 3.9 mmol/L (3.5-5.1) Chloride Level 111 mmol/L (98-107) Carbon Dioxide Level 28 mmol/L (21-32) Anion Gap 11 (6-14) Blood Urea Nitrogen 63 mg/dL (7-20) Creatinine 0.9 mg/dL (0.6-1.0) Estimated GFR (Cockcroft-Gault) 66.5 Glucose Level 162 mg/dL (70-99) Calcium Level 8.8 mg/dL (8.5-10.1) Iron Level 23 ug/dL (50-170) Total Iron Binding Capacity 76 ug/dL (250-450) Iron Saturation 30 % (15-34) Medications Active Scripts Medications Dose Route/Sig Max Daily Dose Days Date Category Bisoprolol Fumarate 5 Mg Tablet 10 Mg PO DAILY 07/04/19 Reported Comments cxr reviewed. Impression . IMPRESSION: 1. Acute hypoxemic respiratory failure secondary to ARDS status post trach, 2. Gallstone pancreatitis 3. Severe metabolic acidosis.stable 4. Acute kidney injury-stable, ON HD-- continue to improve 5. Acute gallstone pancreatitis. 6. Hypoalbuminemia. 7. Moderate persistent effusions 8. Fever-persist. Per ID, per surgery 9. Chronic anemia 10. Covid 19 testing negative 11. Moderate to large ascites-S/P paracentisis S/P paracentisis with 4 liters removed on 08/03/19 Surgery note Operative Note: After obtaining informed consent, patient was taken to OR, induced under GETA and prepped in the usual fashion. 5 mm port placed umbilical and right mid abdomen, all under laparoscopic guidance. Large amount of ascites encountered and aspirated off. Fluid was clear with some whitish debris. Viscera was completely locked in with obliteration of all planes, preventing any significant exploration. Copious irrigation. Given patient's overall clinical improvement, favor against open procedure and attempt at cholecystectomy and/or necrosectomy, given high risk of complications. Cholecystectomy will need to be performed, but favor waiting 3 months. 19 KAYLIN drain placed and secured with 3 0 nylon. Skin repaired with 4 0 monocryl. Dressing placed. Patient tolerated procedure well and sent to PACU in stable condition. All counts correct. Wound class is 4. Plan . We will continue our efforts at weaning CPAP TRIAL/ ANXIETY PERSISTENT/ ON PRECEDEX MAY GO FOR TS SOON Follow surgery input hep sq and protonix for prophylaxis Follow ID rec, abx per id Follow nephrology recs Nutritional support per surgery continue TPN for nutrition DVT/GI PPX am cxr d/w RN/RT VINAYAK LANDRUM MD Aug 16, 2019 11:13
[2019-08-16 11:48] LABS: PHOSPHORUS 4.7 mg/dL (2.6-4.7)
[2019-08-16] MEDS ORDERED: HYDROmorphone STANDARD PCA 12 MG/30 ML SYRINGE. IV ONE (12:05)
--- NOTE | 2019-08-16 12:09 | PDOC ---
Renal-Progress Notes Subjective Notes Notes AWAKE ALERT History of Present Illness Hx of present illness STABLE Vitals Vitals Vital Signs Date Time Temp Pulse Resp B/P (MAP) Pulse Ox O2 Delivery O2 Flow Rate FiO2 08/16/19 10:49 97 Ventilator 08/16/19 06:00 72 18 131/76 (94) 08/16/19 04:00 98.7 98.7 Weight Weight [ ] I.O. Intake and Output Intake and Output 08/16/19 07:00 Intake Total 3470 ml Output Total 2985 ml Balance 485 ml Intake Oral 0 ml IV Total 3470 ml Output Urine Total 2785 ml Drainage Total 200 ml Labs Labs Laboratory Tests Test 08/15/19 13:40 08/15/19 18:04 08/16/19 00:57 08/16/19 07:00 Glucose (Fingerstick) 163 mg/dL (70-99) 208 mg/dL (70-99) 208 mg/dL (70-99) White Blood Count 6.3 x10^3/uL (4.0-11.0) Red Blood Count 4.12 x10^6/uL (3.50-5.40) Hemoglobin 12.1 g/dL (12.0-15.5) Hematocrit 37.5 % (36.0-47.0) Mean Corpuscular Volume 91 fL (79-100) Mean Corpuscular Hemoglobin 29 pg (25-35) Mean Corpuscular Hemoglobin Concent 32 g/dL (31-37) Red Cell Distribution Width 18.3 % (11.5-14.5) Platelet Count 267 x10^3/uL (140-400) Neutrophils (%) (Auto) 74 % (31-73) Lymphocytes (%) (Auto) 20 % (24-48) Monocytes (%) (Auto) 5 % (0-9) Eosinophils (%) (Auto) 0 % (0-3) Basophils (%) (Auto) 0 % (0-3) Neutrophils # (Auto) 4.7 x10^3/uL (1.8-7.7) Lymphocytes # (Auto) 1.3 x10^3/uL (1.0-4.8) Monocytes # (Auto) 0.3 x10^3/uL (0.0-1.1) Eosinophils # (Auto) 0.0 x10^3/uL (0.0-0.7) Basophils # (Auto) 0.0 x10^3/uL (0.0-0.2) Sodium Level 150 mmol/L (136-145) Potassium Level 3.9 mmol/L (3.5-5.1) Chloride Level 111 mmol/L (98-107) Carbon Dioxide Level 28 mmol/L (21-32) Anion Gap 11 (6-14) Blood Urea Nitrogen 63 mg/dL (7-20) Creatinine 0.9 mg/dL (0.6-1.0) Estimated GFR (Cockcroft-Gault) 66.5 Glucose Level 162 mg/dL (70-99) Calcium Level 8.8 mg/dL (8.5-10.1) Phosphorus Level 4.7 mg/dL (2.6-4.7) Magnesium Level 2.0 mg/dL (1.8-2.4) Iron Level 23 ug/dL (50-170) Total Iron Binding Capacity 76 ug/dL (250-450) Iron Saturation 30 % (15-34) Micro Micro Microbiology 08/03/19 Aerobic and Anaerobic Culture - Final, Complete 08/03/19 Anaerobic Culture Result 1 (ALEXANDRA) - Final, Complete 08/03/19 Aerobic Culture - Final, Complete 08/03/19 Aerobic Culture Result 1 (ALEXANDRA) - Final, Complete 08/03/19 Gram Stain - Final, Complete 08/03/19 Gram Stain Result 1 (ALEXANDRA) - Final, Complete 08/03/19 Gram Stain Result 2 (ALEXANDRA) - Final, Complete 08/02/19 Blood Culture - Final, Complete NO GROWTH AFTER 5 DAYS 07/31/19 Urine Culture - Final, Complete 07/31/19 Urine Culture Result 1 (ALEXANDRA) - Final, Complete Review of Systems Constitutional: yes: other (ON THE VENT) Physical Exam General Appearance: other (ON THE VENT, TRACH) Skin: warm Respiratory: decreased breath sounds Heart: S1S2 Abdomen: soft, bowel sounds present Genitourinary: bladder flat Extremities: pulses present, edema Neurology: alert, oriented, other Assessment Assessment IMP HYPERNATREMIA QON-[id number] IMPROVED AND OFF HD FOR NOW ANEMIA LEUCOCYTOSIS-RESOLVED ANASARCA DUE TO 3RD SPACING HYPERKALEMIA-RESOLVED ACIDOSIS AND ACIDEMIA-RESOLVED ACUTE REPS FAILURE-TRACH ACUTE PANCREATITIS HYPOALBUMINEMIA PLAN NO HD FOR NOW TPN TO CONTINUE NEEDED PRBC NEEDED IV VENOFER START HIRAM IF NEEDED VENT SUPPORT IV LASIX ANTIBIOTICS WILL NEED LTAC UPDATED FAMILY WILL FOLLOW DONI GARCIA MD Aug 16, 2019 12:09
[2019-08-16] MEDS: HYDROmorphone 12mg/30ml PCA 30 ML IV PRN (12:27)
[2019-08-16] MEDS: TPN PER PHARMACY MC PRN (12:51)
--- NOTE | 2019-08-16 12:51 | NUR ---
Pharmacy TPN Dosing Note S: SCOTT AVILA is a 48 year old F Currently receiving Central Continuous TPN started 07/06/19 B:Pertinent PMH: Necrotizing pancreatitis Height: 5 feet, 8 inches Weight: 108.5 kg Current diet: NPO LABS: Sodium: 150 Potassium: 3.9 Chloride: 111 Calcium: 8.8 Corrected Calcium: 9.84 Magnesium: 2 CO2: 28 SCr: 0.9 Glucose: 162, 148 Albumin: 2.7 AST: 23 ALT: 11 TPN FORMULA: TPN TYPE: Central Continuous AMINO ACIDS: 125 gm DEXTROSE: 225 gm LIPIDS: 20 gm POTASSIUM ACETATE: 55 mEq MAGNESIUM: 20 mEq CALCIUM: 10 mEq INSULIN: 35 units MULTIPLE VITAMIN: 10 ml TRACE ELEMENTS: 0.5 ml TPN PLAN: -Serum sodium still elevated, however hesitant to increase TPN rate as pt has anasarca due to 3rd spacing and requiring IV Bumex.No changes in rate. -Other electrolytes and blood glucose appear WNL and stable. -BMP tomorrow per renal. R: Continue TPN @ current rate and with above formula. Will monitor electrolytes, glucose, and tolerance to TPN. SHARON CHRISTIANSON [facility] [place], 08/16/19 0950
[2019-08-16] MEDS: IV NORMAL SALINE 1000ML BAG 1,000 ML IV SCH (13:37)
[2019-08-16] MEDS: DAPTOmycin (GENERIC) IVPB 430 MG in IV NORMAL SALINE 50ML 50 ML IV SCH (14:32)
--- NOTE | 2019-08-16 16:21 | PDOC ---
SURGICAL PROGRESS NOTE Subjective Pt sitting up in chair on vent, alert Vital Signs Vital Signs Date Time Temp Pulse Resp B/P (MAP) Pulse Ox O2 Delivery O2 Flow Rate FiO2 08/16/19 16:00 Trach Collar 08/16/19 14:50 99 8.0 08/16/19 13:00 21 08/16/19 06:00 72 131/76 (94) 08/16/19 04:00 98.7 98.7 I&O Intake and Output 08/16/19 07:00 Intake Total 3470 ml Output Total 2985 ml Balance 485 ml Intake Oral 0 ml IV Total 3470 ml Output Urine Total 2785 ml Drainage Total 200 ml General: Alert, No acute distress Abdomen: Soft, Other (KAYLIN serous) Labs Laboratory Tests Test 08/14/19 17:28 08/15/19 00:41 08/15/19 04:30 08/15/19 13:40 Glucose (Fingerstick) 144 mg/dL (70-99) 134 mg/dL (70-99) 163 mg/dL (70-99) White Blood Count 9.2 x10^3/uL (4.0-11.0) Red Blood Count 2.72 x10^6/uL (3.50-5.40) Hemoglobin 8.2 g/dL (12.0-15.5) Hematocrit 24.6 % (36.0-47.0) Mean Corpuscular Volume 90 fL (79-100) Mean Corpuscular Hemoglobin 30 pg (25-35) Mean Corpuscular Hemoglobin Concent 33 g/dL (31-37) Red Cell Distribution Width 18.4 % (11.5-14.5) Platelet Count 323 x10^3/uL (140-400) Neutrophils (%) (Auto) 78 % (31-73) Lymphocytes (%) (Auto) 15 % (24-48) Monocytes (%) (Auto) 6 % (0-9) Eosinophils (%) (Auto) 1 % (0-3) Basophils (%) (Auto) 0 % (0-3) Neutrophils # (Auto) 7.1 x10^3/uL (1.8-7.7) Lymphocytes # (Auto) 1.4 x10^3/uL (1.0-4.8) Monocytes # (Auto) 0.5 x10^3/uL (0.0-1.1) Eosinophils # (Auto) 0.1 x10^3/uL (0.0-0.7) Basophils # (Auto) 0.0 x10^3/uL (0.0-0.2) Sodium Level 149 mmol/L (136-145) Potassium Level 3.6 mmol/L (3.5-5.1) Chloride Level 111 mmol/L (98-107) Carbon Dioxide Level 30 mmol/L (21-32) Anion Gap 8 (6-14) Blood Urea Nitrogen 57 mg/dL (7-20) Creatinine 1.1 mg/dL (0.6-1.0) Estimated GFR (Cockcroft-Gault) 52.8 Glucose Level 123 mg/dL (70-99) Calcium Level 8.5 mg/dL (8.5-10.1) Creatine Kinase 24 U/L (26-192) Test 08/15/19 18:04 08/16/19 00:57 08/16/19 07:00 08/16/19 12:08 Glucose (Fingerstick) 208 mg/dL (70-99) 208 mg/dL (70-99) 148 mg/dL (70-99) White Blood Count 6.3 x10^3/uL (4.0-11.0) Red Blood Count 4.12 x10^6/uL (3.50-5.40) Hemoglobin 12.1 g/dL (12.0-15.5) Hematocrit 37.5 % (36.0-47.0) Mean Corpuscular Volume 91 fL (79-100) Mean Corpuscular Hemoglobin 29 pg (25-35) Mean Corpuscular Hemoglobin Concent 32 g/dL (31-37) Red Cell Distribution Width 18.3 % (11.5-14.5) Platelet Count 267 x10^3/uL (140-400) Neutrophils (%) (Auto) 74 % (31-73) Lymphocytes (%) (Auto) 20 % (24-48) Monocytes (%) (Auto) 5 % (0-9) Eosinophils (%) (Auto) 0 % (0-3) Basophils (%) (Auto) 0 % (0-3) Neutrophils # (Auto) 4.7 x10^3/uL (1.8-7.7) Lymphocytes # (Auto) 1.3 x10^3/uL (1.0-4.8) Monocytes # (Auto) 0.3 x10^3/uL (0.0-1.1) Eosinophils # (Auto) 0.0 x10^3/uL (0.0-0.7) Basophils # (Auto) 0.0 x10^3/uL (0.0-0.2) Sodium Level 150 mmol/L (136-145) Potassium Level 3.9 mmol/L (3.5-5.1) Chloride Level 111 mmol/L (98-107) Carbon Dioxide Level 28 mmol/L (21-32) Anion Gap 11 (6-14) Blood Urea Nitrogen 63 mg/dL (7-20) Creatinine 0.9 mg/dL (0.6-1.0) Estimated GFR (Cockcroft-Gault) 66.5 Glucose Level 162 mg/dL (70-99) Calcium Level 8.8 mg/dL (8.5-10.1) Phosphorus Level 4.7 mg/dL (2.6-4.7) Magnesium Level 2.0 mg/dL (1.8-2.4) Iron Level 23 ug/dL (50-170) Total Iron Binding Capacity 76 ug/dL (250-450) Iron Saturation 30 % (15-34) Laboratory Tests Test 08/15/19 18:04 08/16/19 00:57 08/16/19 07:00 08/16/19 12:08 Glucose (Fingerstick) 208 mg/dL (70-99) 208 mg/dL (70-99) 148 mg/dL (70-99) White Blood Count 6.3 x10^3/uL (4.0-11.0) Red Blood Count 4.12 x10^6/uL (3.50-5.40) Hemoglobin 12.1 g/dL (12.0-15.5) Hematocrit 37.5 % (36.0-47.0) Mean Corpuscular Volume 91 fL (79-100) Mean Corpuscular Hemoglobin 29 pg (25-35) Mean Corpuscular Hemoglobin Concent 32 g/dL (31-37) Red Cell Distribution Width 18.3 % (11.5-14.5) Platelet Count 267 x10^3/uL (140-400) Neutrophils (%) (Auto) 74 % (31-73) Lymphocytes (%) (Auto) 20 % (24-48) Monocytes (%) (Auto) 5 % (0-9) Eosinophils (%) (Auto) 0 % (0-3) Basophils (%) (Auto) 0 % (0-3) Neutrophils # (Auto) 4.7 x10^3/uL (1.8-7.7) Lymphocytes # (Auto) 1.3 x10^3/uL (1.0-4.8) Monocytes # (Auto) 0.3 x10^3/uL (0.0-1.1) Eosinophils # (Auto) 0.0 x10^3/uL (0.0-0.7) Basophils # (Auto) 0.0 x10^3/uL (0.0-0.2) Sodium Level 150 mmol/L (136-145) Potassium Level 3.9 mmol/L (3.5-5.1) Chloride Level 111 mmol/L (98-107) Carbon Dioxide Level 28 mmol/L (21-32) Anion Gap 11 (6-14) Blood Urea Nitrogen 63 mg/dL (7-20) Creatinine 0.9 mg/dL (0.6-1.0) Estimated GFR (Cockcroft-Gault) 66.5 Glucose Level 162 mg/dL (70-99) Calcium Level 8.8 mg/dL (8.5-10.1) Phosphorus Level 4.7 mg/dL (2.6-4.7) Magnesium Level 2.0 mg/dL (1.8-2.4) Iron Level 23 ug/dL (50-170) Total Iron Binding Capacity 76 ug/dL (250-450) Iron Saturation 30 % (15-34) Problem List Problems Medical Problems: (1) Acute pancreatitis Status: Acute (2) Cholelithiasis Status: Acute Assessment/Plan s/p lap exploration cont supportive care cholecystectomy in 3 months. DAVON SIMMS MD Aug 16, 2019 16:21
[2019-08-16] MEDS: BUMETANIDE 1 MG/4 ML VIAL. IV SCH (16:45)
[2019-08-16] MEDS: MEROPENEM 1 GM in IV NORMAL SALINE 100ML 100 ML IV SCH ×2 (16:45→22:01)
[2019-08-16] MEDS ORDERED: TOTAL PARENTERAL NUTRITION IV SCH ×9 (22:00)
[2019-08-16] MEDS ORDERED: AMINO ACID IV SCH ×9 (22:00)
[2019-08-16] MEDS ORDERED: [UNRECOGNIZED DRUG - OTHER] IV SCH ×9 (22:00)
[2019-08-16] MEDS ORDERED: DEXTROSE 70% IV SCH ×9 (22:00)
[2019-08-17] VITALS (25 sets, daily range): BP systolic 90–197; BP diastolic 46–86
[2019-08-17] MEDS: DEXMEDETOMIDINE 400 MCG in IV NORMAL SALINE 100ML 96 ML IV PRN ×7 (01:52→21:45)
[2019-08-17] MEDS: MEROPENEM 1 GM in IV NORMAL SALINE 100ML 100 ML IV SCH ×3 (05:23→22:22)
[2019-08-17] MEDS: INSULIN LISPRO 300 UNITS/3 ML VIAL. SQ SCH ×3 (06:00→17:52)
[2019-08-17 06:43] LABS: CALCIUM 8.2 mg/dL (8.5-10.1); GFR 58.9; POTASSIUM 3.6 mmol/L (3.5-5.1)
[2019-08-17 06:49] LABS: HEMATOCRIT 22.9 % (36.0-47.0); RED BLOOD COUNT 2.51 x10^6/uL (3.50-5.40); RED CELL DISTRIBUTION WIDTH 18.4 % (11.5-14.5); WHITE BLOOD COUNT 10.4 x10^3/uL (4.0-11.0)
[2019-08-17 07:11] LABS: HEMOGLOBIN 7.4 g/dL (12.0-15.5)
[2019-08-17] MEDS: PANTOPRAZOLE IV PUSH 40 MG VIAL. IVP SCH (07:39)
[2019-08-17] MEDS: PROCHLORPERAZINE 10 MG/2 ML VIAL. IV PRN ×2 (07:40→14:59)
[2019-08-17 08:31] LABS: HEMATOCRIT 26.9 % (36.0-47.0); HEMOGLOBIN 8.5 g/dL (12.0-15.5); RED BLOOD COUNT 2.89 x10^6/uL (3.50-5.40); RED CELL DISTRIBUTION WIDTH 18.5 % (11.5-14.5); WHITE BLOOD COUNT 14.5 x10^3/uL (4.0-11.0)
--- NOTE | 2019-08-17 08:34 | PDOC ---
PROGRESS NOTES Chief Complaint Chief Complaint Acute hypoxic Respiratory failure requiring mechanical ventilation (on vent since 07/10) Tracheostomy bilateral pleural effusions/pulm edema Sepsis Severe Acute gallstone pancreatitis (not a surgical candidate at this time) with necrosis Acute kidney failure now requiring dialysis Salpingitis Gallstones (Calculus of gallbladder with acute cholecystitis without obstruction) HTN Leukocytosis Hypoxia Uterine fibroid Intractable pain Intractable nausea Covid 19 negative. Acute on chronic anemia EEG: No seizure activity ESRD on HD Hyperglycemia History of Present Illness History of Present Illness Ms Diaz is a 48yo F w/ PMHx HTN, prediabetes who presented to the emergency room with complaints of abdominal pain on 07/04/2019. Found with Lipase 51257, AST 401, ALT 249, Bilirubin 1.4. CT abdomen confirms pancreatic inflammation, peripancreatic fluid and inflammatory changes around the pancreas consistent with pancreatitis. Cholelithiasis and 1.4cm uterine fibroid as well as possible left salpingitis. Admitted for further care GI, General surgery, ID, Pulm consulted. 07/04: PICC placed per IR. Renal US negative. Started on levophed. Repeat CT abdomen w/ necrosis; 07/05: Dialysis catheter per nephrology; 07/06: On BiPAP; 07/07: BiPAP, dialysis; 07/08: Overnight Tmax 101.7 , still on BiPAP FiO2 40%, still on low dose Levophed gtt, TPN initiated. On dialysis 07/24: Tracheostomy; 07/30: S/p tracheostomy on vent spontaneous respirations with 5 of pressure support 35% FiO2, rectal tube and a Lind, off pressors; 08/01:Still on vent via trach. Removed PICC and CVC LIJ and replaced. CT chest/abd/pelvis with bilateral pleural effusion and ascites. 08/02: Renal function stable. Still on vent. More interactive today. Miming wish for food. Plan discussed for thoracentesis/paracentesis with daughters today. They were under impression patient was doing worse due to a miscommunication which has been clarified over the phone. 4.3L removed. 08/04: Febrile overnight 101.8F. More interactive, still on vent. Asking for ice by miming; 08/05: Afebrile overnight. TMax last 24 hours 100.6F. Hb 7.1. Interactive when awake. 08/09: Transfusion 1u PRBC (6U total since admit) 08/10-08/13: TPN and precedex, vent. 08/14: Tmax 101F overnight. Hb 8.2. HD cath out since 08/11. Alert. On vent SIMV 35% FiO2. Surgery: ex-lap, no ronel or pancreatic necrosectomy 2/2 profound inflammation. 08/15: Seen POD #1. Afebrile overnight. BUN 62. CBC WNL today.Remains on vent via trach, TPN. Able to point today and indicate she wishes her daughters and Jamaal to be involved in her care. Hb 7.4, Na 151. More relaxed today. Remains on vent via trach, TPN. off HD for now. Plan: Cont vent weaning Trach shield during day if ok with pulm. Would recommend ABG after 4 hours to r/o CO2 retention, however and still vent overnight Vitals Vitals Vital Signs Date Time Temp Pulse Resp B/P (MAP) Pulse Ox O2 Delivery O2 Flow Rate FiO2 08/17/19 08:00 Mechanical Ventilator 08/17/19 08:00 99.3 86 17 140/86 (104) 98 99.3 08/16/19 14:50 8.0 Physical Exam Physical Exam GENERAL: Propped up in bed, sedated weak appearing HEENT: Pupils equal, + NGT, oral cavity dry NECK: Trach/vent LUNGS: rhonchi HEART: S1, S2, regular ABDOMEN: Distended, hypoactive BS, drain placement (08/14 ) : Lind (08/01) EXTREMITIES: Generalized edema, no cyanosis, SCDs bilaterally DERMATOLOGIC: Warm and dry. No generalized rash. CENTRAL NERVOUS SYSTEM: Extremely weak, nods to few simple questions HDC has been removed LIJ (08/01) clean General: Alert, No acute distress Heart: Regular rate, Normal S1, Other (increased rate) Lungs: Crackles, Other (dimished in BLL nc at perrl nose clear neck trach site ok no lad no thyromegaly) Abdomen: Soft, Other (KAYLIN serous) Extremities: Other (ANASARCA) Skin: Other (mottling noted to extremities ) Labs LABS Laboratory Tests Test 08/16/19 12:08 08/16/19 18:44 08/16/19 23:40 08/17/19 06:10 Glucose (Fingerstick) 148 mg/dL (70-99) 116 mg/dL (70-99) 94 mg/dL (70-99) White Blood Count 10.4 x10^3/uL (4.0-11.0) Red Blood Count 2.51 x10^6/uL (3.50-5.40) Hemoglobin 7.4 g/dL (12.0-15.5) Hematocrit 22.9 % (36.0-47.0) Mean Corpuscular Volume 91 fL (79-100) Mean Corpuscular Hemoglobin 29 pg (25-35) Mean Corpuscular Hemoglobin Concent 32 g/dL (31-37) Red Cell Distribution Width 18.4 % (11.5-14.5) Platelet Count 439 x10^3/uL (140-400) Sodium Level 151 mmol/L (136-145) Potassium Level 3.6 mmol/L (3.5-5.1) Chloride Level 114 mmol/L (98-107) Carbon Dioxide Level 29 mmol/L (21-32) Anion Gap 8 (6-14) Blood Urea Nitrogen 58 mg/dL (7-20) Creatinine 1.0 mg/dL (0.6-1.0) Estimated GFR (Cockcroft-Gault) 58.9 Glucose Level 104 mg/dL (70-99) Calcium Level 8.2 mg/dL (8.5-10.1) Test 08/17/19 06:14 Glucose (Fingerstick) 87 mg/dL (70-99) Assessment and Plan Assessmemt and Plan Problems Medical Problems: (1) Acute pancreatitis Status: Acute (2) Cholelithiasis Status: Acute Comment Review of Relevant I have reviewed the following items kolby (where applicable) has been applied. Labs Laboratory Tests Test 08/15/19 13:40 08/15/19 18:04 08/16/19 00:57 08/16/19 07:00 Glucose (Fingerstick) 163 mg/dL (70-99) 208 mg/dL (70-99) 208 mg/dL (70-99) White Blood Count 6.3 x10^3/uL (4.0-11.0) Red Blood Count 4.12 x10^6/uL (3.50-5.40) Hemoglobin 12.1 g/dL (12.0-15.5) Hematocrit 37.5 % (36.0-47.0) Mean Corpuscular Volume 91 fL (79-100) Mean Corpuscular Hemoglobin 29 pg (25-35) Mean Corpuscular Hemoglobin Concent 32 g/dL (31-37) Red Cell Distribution Width 18.3 % (11.5-14.5) Platelet Count 267 x10^3/uL (140-400) Neutrophils (%) (Auto) 74 % (31-73) Lymphocytes (%) (Auto) 20 % (24-48) Monocytes (%) (Auto) 5 % (0-9) Eosinophils (%) (Auto) 0 % (0-3) Basophils (%) (Auto) 0 % (0-3) Neutrophils # (Auto) 4.7 x10^3/uL (1.8-7.7) Lymphocytes # (Auto) 1.3 x10^3/uL (1.0-4.8) Monocytes # (Auto) 0.3 x10^3/uL (0.0-1.1) Eosinophils # (Auto) 0.0 x10^3/uL (0.0-0.7) Basophils # (Auto) 0.0 x10^3/uL (0.0-0.2) Sodium Level 150 mmol/L (136-145) Potassium Level 3.9 mmol/L (3.5-5.1) Chloride Level 111 mmol/L (98-107) Carbon Dioxide Level 28 mmol/L (21-32) Anion Gap 11 (6-14) Blood Urea Nitrogen 63 mg/dL (7-20) Creatinine 0.9 mg/dL (0.6-1.0) Estimated GFR (Cockcroft-Gault) 66.5 Glucose Level 162 mg/dL (70-99) Calcium Level 8.8 mg/dL (8.5-10.1) Phosphorus Level 4.7 mg/dL (2.6-4.7) Magnesium Level 2.0 mg/dL (1.8-2.4) Iron Level 23 ug/dL (50-170) Total Iron Binding Capacity 76 ug/dL (250-450) Iron Saturation 30 % (15-34) Test 08/16/19 12:08 08/16/19 18:44 08/16/19 23:40 08/17/19 06:10 Glucose (Fingerstick) 148 mg/dL (70-99) 116 mg/dL (70-99) 94 mg/dL (70-99) White Blood Count 10.4 x10^3/uL (4.0-11.0) Red Blood Count 2.51 x10^6/uL (3.50-5.40) Hemoglobin 7.4 g/dL (12.0-15.5) Hematocrit 22.9 % (36.0-47.0) Mean Corpuscular Volume 91 fL (79-100) Mean Corpuscular Hemoglobin 29 pg (25-35) Mean Corpuscular Hemoglobin Concent 32 g/dL (31-37) Red Cell Distribution Width 18.4 % (11.5-14.5) Platelet Count 439 x10^3/uL (140-400) Sodium Level 151 mmol/L (136-145) Potassium Level 3.6 mmol/L (3.5-5.1) Chloride Level 114 mmol/L (98-107) Carbon Dioxide Level 29 mmol/L (21-32) Anion Gap 8 (6-14) Blood Urea Nitrogen 58 mg/dL (7-20) Creatinine 1.0 mg/dL (0.6-1.0) Estimated GFR (Cockcroft-Gault) 58.9 Glucose Level 104 mg/dL (70-99) Calcium Level 8.2 mg/dL (8.5-10.1) Test 08/17/19 06:14 Glucose (Fingerstick) 87 mg/dL (70-99) Laboratory Tests Test 08/16/19 12:08 08/16/19 18:44 08/16/19 23:40 08/17/19 06:10 Glucose (Fingerstick) 148 mg/dL (70-99) 116 mg/dL (70-99) 94 mg/dL (70-99) White Blood Count 10.4 x10^3/uL (4.0-11.0) Red Blood Count 2.51 x10^6/uL (3.50-5.40) Hemoglobin 7.4 g/dL (12.0-15.5) Hematocrit 22.9 % (36.0-47.0) Mean Corpuscular Volume 91 fL (79-100) Mean Corpuscular Hemoglobin 29 pg (25-35) Mean Corpuscular Hemoglobin Concent 32 g/dL (31-37) Red Cell Distribution Width 18.4 % (11.5-14.5) Platelet Count 439 x10^3/uL (140-400) Sodium Level 151 mmol/L (136-145) Potassium Level 3.6 mmol/L (3.5-5.1) Chloride Level 114 mmol/L (98-107) Carbon Dioxide Level 29 mmol/L (21-32) Anion Gap 8 (6-14) Blood Urea Nitrogen 58 mg/dL (7-20) Creatinine 1.0 mg/dL (0.6-1.0) Estimated GFR (Cockcroft-Gault) 58.9 Glucose Level 104 mg/dL (70-99) Calcium Level 8.2 mg/dL (8.5-10.1) Test 08/17/19 06:14 Glucose (Fingerstick) 87 mg/dL (70-99) Microbiology 08/03/19 Aerobic and Anaerobic Culture - Final, Complete 08/03/19 Anaerobic Culture Result 1 (ALEXANDRA) - Final, Complete 08/03/19 Aerobic Culture - Final, Complete 08/03/19 Aerobic Culture Result 1 (ALEXANDRA) - Final, Complete 08/03/19 Gram Stain - Final, Complete 08/03/19 Gram Stain Result 1 (ALEXANDRA) - Final, Complete 08/03/19 Gram Stain Result 2 (ALEXANDRA) - Final, Complete 08/02/19 Blood Culture - Final, Complete NO GROWTH AFTER 5 DAYS 07/31/19 Urine Culture - Final, Complete 07/31/19 Urine Culture Result 1 (ALEXANDRA) - Final, Complete Medications Current Medications Sodium Chloride 1,000 ml @ 1,000 mls/hr Q1H IV Last administered on 07/04/19at 03:00; Start 07/04/19 at 03:00; Stop 07/04/19 at 03:59; Status DC Ondansetron HCl (Zofran) 4 mg 1X ONCE IVP Last administered on 07/04/19at 03:27; Start 07/04/19 at 03:00; Stop 07/04/19 at 03:01; Status DC Morphine Sulfate (Morphine Sulfate) 4 mg 1X ONCE IV ; Start 07/04/19 at 03:00; Stop 07/04/19 at 03:01; Status Cancel Ketorolac Tromethamine (Toradol 30mg Vial) 30 mg 1X ONCE IV Last administered on 07/04/19at 02:54; Start 07/04/19 at 03:00; Stop 07/04/19 at 03:01; Status DC Fentanyl Citrate (Fentanyl 2ml Vial) 25 mcg 1X ONCE IVP Last administered on 07/04/19at 03:23; Start 07/04/19 at 03:30; Stop 07/04/19 at 03:31; Status DC Fentanyl Citrate (Fentanyl 2ml Vial) 100 mcg STK-MED ONCE .ROUTE ; Start 07/04/19 at 03:18; Stop 07/04/19 at 03:18; Status DC Iohexol (Omnipaque 350 Mg/ml) 90 ml 1X ONCE IV Last administered on 07/04/19at 03:25; Start 07/04/19 at 03:30; Stop 07/04/19 at 03:31; Status DC Info (CONTRAST GIVEN -- Rx MONITORING) 1 each PRN DAILY PRN MC SEE COMMENTS; Start 07/04/19 at 03:30; Stop 07/06/19 at 03:29; Status DC Hydromorphone HCl (Dilaudid) 0.5 mg 1X ONCE IV Last administered on 07/04/19at 03:55; Start 07/04/19 at 04:30; Stop 07/04/19 at 04:32; Status DC Ondansetron HCl (Zofran) 4 mg PRN Q8HRS PRN IV NAUSEA/VOMITING 1ST CHOICE; Start 07/04/19 at 05:00; Stop 07/04/19 at 09:27; Status DC Morphine Sulfate (Morphine Sulfate) 2 mg PRN Q2HR PRN IV SEVERE PAIN 7-10 Last administered on 07/05/19at 12:26; Start 07/04/19 at 05:00; Stop 07/05/19 at 14:15; Status DC Sodium Chloride 1,000 ml @ 125 mls/hr Q8H IV Last administered on 07/04/19at 20:56; Start 07/04/19 at 05:00; Stop 07/05/19 at 04:59; Status DC Hydromorphone HCl (Dilaudid) 0.5 mg PRN Q3HRS PRN IV SEVERE PAIN 7-10 Last administered on 07/05/19at 10:06; Start 07/04/19 at 05:00; Stop 07/05/19 at 12:01; Status DC Piperacillin Sod/ Tazobactam Sod 4.5 gm/Sodium Chloride 100 ml @ 200 mls/hr 1X ONCE IV Last administered on 07/04/19at 05:44; Start 07/04/19 at 06:00; Stop 07/04/19 at 06:29; Status DC Ondansetron HCl (Zofran) 4 mg PRN Q4HRS PRN IV NAUSEA/VOMITING 1ST CHOICE Last administered on 08/12/19at 11:01; Start 07/04/19 at 09:30 Insulin Human Lispro (HumaLOG) 0-9 UNITS Q6HRS SQ Last administered on 08/16/19at 08:42; Start 07/04/19 at 09:30 Dextrose (Dextrose 50%-Water Syringe) 12.5 gm PRN Q15MIN PRN IV SEE COMMENTS; Start 07/04/19 at 09:30 Pantoprazole Sodium (PROTONIX VIAL for IV PUSH) 40 mg DAILYAC IVP Last administered on 08/17/19at 07:39; Start 07/04/19 at 11:30 Prochlorperazine Edisylate (Compazine) 10 mg PRN Q6HRS PRN IV NAUSEA/VOMITING, 2nd CHOICE Last administered on 08/17/19at 07:40; Start 07/04/19 at 17:45 Atenolol (Tenormin) 100 mg DAILY PO ; Start 07/05/19 at 09:00; Stop 07/04/19 at 20:08; Status DC Metoprolol Tartrate (Lopressor Vial) 2.5 mg Q6HRS IVP Last administered on 07/05/19at 05:51; Start 07/04/19 at 20:15; Stop 07/05/19 at 10:02; Status DC Metoprolol Tartrate (Lopressor Vial) 5 mg Q6HRS IVP Last administered on at 00:12; Start 07/05/19 at 10:15; Stop 07/16/19 at 08:48; Status DC Hydromorphone HCl (Dilaudid) 1 mg PRN Q3HRS PRN IV SEVERE PAIN 7-10 Last administered on 07/11/19at 05:13; Start 07/05/19 at 12:00; Stop 07/19/19 at 00:25; Status DC Lidocaine HCl (Buffered Lidocaine 1%) 3 ml STK-MED ONCE .ROUTE ; Start 07/05/19 at 12:55; Stop 07/05/19 at 12:56; Status DC Albumin Human 500 ml @ 125 mls/hr 1X ONCE IV Last administered on 07/05/19at 14:33; Start 07/05/19 at 14:30; Stop 07/05/19 at 18:32; Status DC Norepinephrine Bitartrate 8 mg/ Dextrose 258 ml @ 17.299 mls/ hr CONT PRN IV PER PROTOCOL Last administered on 08/02/19at 12:48; Start 07/05/19 at 15:30; Stop 08/05/19 at 09:19; Status DC Sodium Chloride 1,000 ml @ 125 mls/hr Q8H IV Last administered on 07/05/19at 21:04; Start 07/05/19 at 16:00; Stop 07/06/19 at 02:42; Status DC Albumin Human 500 ml @ 125 mls/hr PRN BID PRN IV After every 2L NSS & BP < 90mm Last administered on 07/20/19at 14:21; Start 07/05/19 at 16:00 Iohexol (Omnipaque 300 Mg/ml) 60 ml 1X ONCE IV Last administered on 07/05/19at 17:20; Start 07/05/19 at 17:00; Stop 07/05/19 at 17:01; Status DC Info (CONTRAST GIVEN -- Rx MONITORING) 1 each PRN DAILY PRN MC SEE COMMENTS; Start 07/05/19 at 17:00; Stop 07/07/19 at 16:59; Status DC Meropenem 1 gm/ Sodium Chloride 100 ml @ 200 mls/hr Q8HRS IV Last administered on 07/06/19at 05:45; Start 07/05/19 at 20:00; Stop 07/06/19 at 08:48; Status DC Furosemide (Lasix) 40 mg 1X ONCE IVP Last administered on 07/05/19at 22:12; Start 07/05/19 at 22:30; Stop 07/05/19 at 22:31; Status DC Calcium Chloride 1000 mg/Sodium Chloride 110 ml @ 220 mls/hr 1X ONCE IV Last administered on 07/05/19at 22:11; Start 07/05/19 at 22:30; Stop 07/05/19 at 22:59; Status DC Albuterol Sulfate (Ventolin Neb Soln) 2.5 mg 1X ONCE NEB Last administered on 07/06/19at 00:56; Start 07/05/19 at 22:30; Stop 07/05/19 at 22:31; Status DC Insulin Human Regular (HumuLIN R VIAL) 5 unit 1X ONCE IV Last administered on 07/05/19at 22:14; Start 07/05/19 at 22:30; Stop 07/05/19 at 22:31; Status DC Magnesium Sulfate 50 ml @ 25 mls/hr 1X ONCE IV Last administered on 07/06/19at 02:57; Start 07/06/19 at 03:00; Stop 07/06/19 at 04:59; Status DC Calcium Gluconate 1000 mg/Sodium Chloride 110 ml @ 220 mls/hr 1X ONCE IV Last administered on 07/06/19at 02:46; Start 07/06/19 at 03:00; Stop 07/06/19 at 03:29; Status DC Sodium Chloride 1,000 ml @ 200 mls/hr Q5H IV Last administered on 07/06/19at 02:46; Start 07/06/19 at 03:00; Stop 07/06/19 at 10:21; Status DC Calcium Gluconate 1000 mg/Sodium Chloride 110 ml @ 220 mls/hr 1X ONCE IV Last administered on 07/06/19at 03:21; Start 07/06/19 at 03:30; Stop 07/06/19 at 03:5 9; Status DC Sodium Bicarbonate 50 meq/Sodium Chloride 1,050 ml @ 75 mls/hr Q14H IV Last administered on 07/10/19at 21:10; Start 07/06/19 at 07:30; Stop 07/11/19 at 10:28; Status DC Calcium Gluconate 2000 mg/Sodium Chloride 120 ml @ 220 mls/hr 1X ONCE IV Last administered on 07/06/19at 09:05; Start 07/06/19 at 07:30; Stop 07/06/19 at 08:02; Status DC Lidocaine HCl (Xylocaine-Mpf 1% 2ml Vial) 2 ml STK-MED ONCE .ROUTE ; Start 07/06/19 at 08:47; Stop 07/06/19 at 08:47; Status DC Meropenem 500 mg/ Sodium Chloride 50 ml @ 100 mls/hr Q12HR IV Last administered on 07/11/19at 21:01; Start 07/06/19 at 18:00; Stop 07/12/19 at 07:58; Status DC Lidocaine HCl (Buffered Lidocaine 1%) 3 ml STK-MED ONCE .ROUTE ; Start 07/06/19 at 09:46; Stop 07/06/19 at 09:46; Status DC Lidocaine HCl (Buffered Lidocaine 1%) 6 ml 1X ONCE INJ Last administered on 07/06/19at 10:26; Start 07/06/19 at 10:15; Stop 07/06/19 at 10:16; Status DC Info (Tpn Per Pharmacy) 1 each PRN DAILY PRN MC SEE COMMENTS Last administered on 08/16/19at 12:51; Start 07/06/19 at 12:00 Sodium Chloride 1,000 ml @ 1,000 mls/hr Q1H PRN IV hypotension; Start 07/06/19 at 12:07; Stop 07/06/19 at 18:06; Status DC Diphenhydramine HCl (Benadryl) 25 mg 1X PRN PRN IV ITCHING; Start 07/06/19 at 12:15; Stop 07/07/19 at 12:14; Status DC Diphenhydramine HCl (Benadryl) 25 mg 1X PRN PRN IV ITCHING; Start 07/06/19 at 12:15; Stop 07/07/19 at 12:14; Status DC Sodium Chloride 1,000 ml @ 400 mls/hr Q2H30M PRN IV PATENCY; Start 07/06/19 at 12:07; Stop 07/07/19 at 00:06; Status DC Info (PHARMACY MONITORING -- do not chart) 1 each PRN DAILY PRN MC SEE COMMENTS; Start 07/06/19 at 12:15; Stop 07/08/19 at 08:13; Status DC Sodium Chloride 90 meq/Calcium Gluconate 10 meq/ Multivitamins 10 ml/Chromium/ Copper/Manganese/ Seleni/Zn 1 ml/ Total Parenteral Nutrition/Amino Acids/Dextrose/ Fat Emulsion Intravenous 55.005 ml @ 2.292 mls/hr TPN CONT IV ; Start 07/06/19 at 22:00; Stop 07/06/19 at 12:33; Status DC Info (Tpn Per Pharmacy) 1 each PRN DAILY PRN MC SEE COMMENTS; Start 07/06/19 at 12:30; Status UNV Sodium Chloride 90 meq/Calcium Gluconate 10 meq/ Multivitamins 10 ml/Chromium/ Copper/Manganese/ Seleni/Zn 0.5 ml/ Total Parenteral Nutrition/Amino Acids/Dextrose/ Fat Emulsion Intravenous 1,512 ml @ 63 mls/hr TPN CONT IV Last administered on 07/06/19at 22:06; Start 07/06/19 at 22:00; Stop 07/07/19 at 21:59; Status DC Calcium Carbonate/ Glycine (Tums) 500 mg PRN AFTMEALHC PRN PO INDIGESTION; Start 07/06/19 at 17:45 Calcium Gluconate (Calcium Gluconate) 2,000 mg 1X ONCE IVP Last administered on 07/07/19at 02:19; Start 07/07/19 at 02:15; Stop 07/07/19 at 02:16; Status DC Calcium Chloride 3000 mg/Sodium Chloride 1,030 ml @ 50 mls/hr [id number] IV Last administered on 07/09/19at 02:17; Start 07/07/19 at 08:00; Stop 07/09/19 at 15:23; Status DC Lorazepam (Ativan Inj) 1 mg PRN Q4HRS PRN IVP ANXIETY / AGITATION, 2nd choic Last administered on 08/05/19at 03:51; Start 07/07/19 at 09:00; Stop 08/05/19 at 09:19; Status DC Sodium Chloride 1,000 ml @ 1,000 mls/hr Q1H PRN IV hypotension; Start 07/07/19 at 08:56; Stop 07/07/19 at 14:55; Status DC Albumin Human 200 ml @ 200 mls/hr 1X PRN PRN IV Hypotension; Start 07/07/19 at 09:00; Stop 07/07/19 at 14:59; Status DC Diphenhydramine HCl (Benadryl) 25 mg 1X PRN PRN IV ITCHING; Start 07/07/19 at 09:00; Stop 07/08/19 at 08:59; Status DC Diphenhydramine HCl (Benadryl) 25 mg 1X PRN PRN IV ITCHING; Start 07/07/19 at 09:00; Stop 07/08/19 at 08:59; Status DC Sodium Chloride 1,000 ml @ 400 mls/hr Q2H30M PRN IV PATENCY; Start 07/07/19 at 08:56; Stop 07/07/19 at 20:55; Status DC Info (PHARMACY MONITORING -- do not chart) 1 each PRN DAILY PRN MC SEE COMMENTS; Start 07/07/19 at 09:00; Status UNV Info (PHARMACY MONITORING -- do not chart) 1 each PRN DAILY PRN MC SEE COMMENTS; Start 07/07/19 at 09:00; Stop 07/08/19 at 08:13; Status DC Digoxin (Lanoxin) 500 mcg 1X ONCE IV Last administered on 07/07/19at 10:04; Start 07/07/19 at 10:00; Stop 07/07/19 at 10:01; Status DC Digoxin (Lanoxin) 125 mcg 1X ONCE IV Last administered on 07/07/19at 17:10; Start 07/07/19 at 18:00; Stop 07/07/19 at 18:01; Status DC Magnesium Sulfate 100 ml @ 25 mls/hr 1X ONCE IV Last administered on at 12:48; Start 07/07/19 at 13:00; Stop 07/07/19 at 16:59; Status DC Sodium Chloride 90 meq/Magnesium Sulfate 10 meq/ Calcium Gluconate 20 meq/ Multivitamins 10 ml/Chromium/ Copper/Manganese/ Seleni/Zn 0.5 ml/ Total Parenteral Nutrition/Amino Acids/Dextrose/ Fat Emulsion Intravenous 1,512 ml @ 63 mls/hr TPN CONT IV Last administered on 07/07/19at 22:25; Start 07/07/19 at 22:00; Stop 07/08/19 at 21:59; Status DC Sodium Chloride 1,000 ml @ 1,000 mls/hr Q1H PRN IV hypotension; Start 07/08/19 at 08:05; Stop 07/08/19 at 14:04; Status DC Albumin Human 200 ml @ 200 mls/hr 1X ONCE IV Last administered on 07/08/19at 08:57; Start 07/08/19 at 08:15; Stop 07/08/19 at 09:14; Status DC Diphenhydramine HCl (Benadryl) 25 mg 1X PRN PRN IV ITCHING; Start 07/08/19 at 08:15; Stop 07/09/19 at 08:14; Status DC Diphenhydramine HCl (Benadryl) 25 mg 1X PRN PRN IV ITCHING; Start 07/08/19 at 08:15; Stop 07/09/19 at 08:14; Status DC Sodium Chloride 1,000 ml @ 400 mls/hr Q2H30M PRN IV PATENCY; Start 07/08/19 at 08:05; Stop 07/08/19 at 20:04; Status DC Info (PHARMACY MONITORING -- do not chart) 1 each PRN DAILY PRN MC SEE COMMENTS; Start 07/08/19 at 08:15; Stop 07/12/19 at 07:57; Status DC Sodium Chloride 90 meq/Potassium Chloride 15 meq/ Potassium Phosphate 10 mmol/ Magnesium Sulfate 10 meq/Calcium Gluconate 20 meq/ Multivitamins 10 ml/Chromium/ Copper/Manganese/ Seleni/Zn 0.5 ml/ Total Parenteral Nutrition/Amino Acids/Dextrose/ Fat Emulsion Intravenous 1,512 ml @ 63 mls/hr TPN CONT IV Last administered on 07/08/19at 21:01; Start 07/08/19 at 22:00; Stop 07/09/19 at 21:59; Status DC Potassium Chloride/Water 100 ml @ 100 mls/hr 1X ONCE IV Last administered on 07/08/19at 14:09; Start 07/08/19 at 14:00; Stop 07/08/19 at 14:59; Status DC Benzocaine (Hurricaine One) 1 spray 1X ONCE MM Last administered on 07/08/19at 16:38; Start 07/08/19 at 14:30; Stop 07/08/19 at 14:31; Status DC Lidocaine HCl (Glydo (Lidocaine) Jelly) 1 ramu 1X ONCE MM Last administered on 07/08/19at 16:38; Start 07/08/19 at 14:30; Stop 07/08/19 at 14:31; Status DC Linezolid/Dextrose 300 ml @ 300 mls/hr Q12HR IV Last administered on 07/14/19at 21:04; Start 07/08/19 at 20:00; Stop 07/15/19 at 07:50; Status DC Acetaminophen (Tylenol) 650 mg PRN Q6HRS PRN PO MILD PAIN / TEMP; Start 07/09/19 at 03:30; Stop 07/09/19 at 03:36; Status DC Acetaminophen (Tylenol) 650 mg PRN Q6HRS PRN PEG MILD PAIN / TEMP Last administered on 08/04/19at 19:56; Start 07/09/19 at 03:36 Sodium Chloride 1,000 ml @ 1,000 mls/hr Q1H PRN IV hypotension; Start 07/09/19 at 07:50; Stop 07/09/19 at 13:49; Status DC Albumin Human 200 ml @ 200 mls/hr 1X PRN PRN IV Hypotension; Start 07/09/19 at 08:00; Stop 07/09/19 at 13:59; Status DC Sodium Chloride (Normal Saline Flush) 10 ml 1X PRN PRN IV AP catheter pack; Start 07/09/19 at 08:00; Stop 07/10/19 at 07:59; Status DC Sodium Chloride (Normal Saline Flush) 10 ml 1X PRN PRN IV [employer]ERR[employer]PER[employer] catheter pack; Start 07/09/19 at 08:00; Stop 07/10/19 at 07:59; Status DC Sodium Chloride 1,000 ml @ 400 mls/hr Q2H30M PRN IV PATENCY; Start 07/09/19 at 07:50; Stop 07/09/19 at 19:49; Status DC Info (PHARMACY MONITORING -- do not chart) 1 each PRN DAILY PRN MC SEE COMMENTS; Start 07/09/19 at 08:00; Status UNV Info (PHARMACY MONITORING -- do not chart) 1 each PRN DAILY PRN MC SEE COMMENTS; Start 07/09/19 at 08:00; Stop 07/11/19 at 08:25; Status DC Sodium Chloride 90 meq/Potassium Chloride 15 meq/ Potassium Phosphate 10 mmol/ M agnesium Sulfate 10 meq/Calcium Gluconate 20 meq/ Multivitamins 10 ml/Chromium/ Copper/Manganese/ Seleni/Zn 0.5 ml/ Total Parenteral Nutrition/Amino Acids/Dextrose/ Fat Emulsion Intravenous 1,512 ml @ 63 mls/hr TPN CONT IV Last administered on 07/09/19at 20:57; Start 07/09/19 at 22:00; Stop 07/10/19 at 21:59; Status DC Sodium Chloride 90 meq/Potassium Chloride 15 meq/ Potassium Phosphate 15 mmol/ Magnesium Sulfate 10 meq/Calcium Gluconate 20 meq/ Multivitamins 10 ml/Chromium/ Copper/Manganese/ Seleni/Zn 0.5 ml/ Total Parenteral Nutrition/Amino Acids/Dextrose/ Fat Emulsion Intravenous 1,512 ml @ 63 mls/hr TPN CONT IV ; Start 07/10/19 at 22:00; Stop 07/10/19 at 14:16; Status DC Sodium Chloride 90 meq/Potassium Chloride 15 meq/ Potassium Phosphate 15 mmol/ Magnesium Sulfate 10 meq/Calcium Gluconate 20 meq/ Multivitamins 10 ml/Chromium/ Copper/Manganese/ Seleni/Zn 0.5 ml/ Total Parenteral Nutrition/Amino Acids/Dextrose/ Fat Emulsion Intravenous 1,200 ml @ 50 mls/hr TPN CONT IV ; Start 07/10/19 at 22:00; Stop 07/10/19 at 14:17; Status DC Sodium Chloride 90 meq/Potassium Chloride 15 meq/ Potassium Phosphate 10 mmol/ Magnesium Sulfate 10 meq/Calcium Gluconate 20 meq/ Multivitamins 10 ml/Chromium/ Copper/Manganese/ Seleni/Zn 0.5 ml/ Total Parenteral Nutrition/Amino Acids/Dextrose/ Fat Emulsion Intravenous 1,200 ml @ 50 mls/hr TPN CONT IV Last administered on 07/10/19at 23:29; Start 07/10/19 at 22:00; Stop 07/11/19 at 21:59; Status DC Sodium Chloride 1,000 ml @ 1,000 mls/hr Q1H PRN IV hypotension; Start 07/11/19 at 07:28; Stop 07/11/19 at 13:27; Status DC Albumin Human 200 ml @ 200 mls/hr 1X ONCE IV Last administered on 07/11/19at 08:51; Start 07/11/19 at 07:30; Stop 07/11/19 at 08:29; Status DC Diphenhydramine HCl (Benadryl) 25 mg 1X PRN PRN IV ITCHING; Start 07/11/19 at 07:30; Stop 07/12/19 at 07:29; Status DC Diphenhydramine HCl (Benadryl) 25 mg 1X PRN PRN IV ITCHING; Start 07/11/19 at 07:30; Stop 07/12/19 at 07:29; Status DC Sodium Chloride 1,000 ml @ 400 mls/hr Q2H30M PRN IV PATENCY; Start 07/11/19 at 07:28; Stop 07/11/19 at 19:27; Status DC Info (PHARMACY MONITORING -- do not chart) 1 each PRN DAILY PRN MC SEE COMMENT S; Start 07/11/19 at 07:30; Stop 07/22/19 at 13:01; Status DC Metronidazole 100 ml @ 100 mls/hr Q6HRS IV Last administered on 07/27/19at 06:26; Start 07/11/19 at 08:30; Stop 07/27/19 at 09:58; Status DC Micafungin Sodium 100 mg/Dextrose 100 ml @ 100 mls/hr Q24H IV Last administered on 08/16/19at 08:39; Start 07/11/19 at 09:00 Propofol 0 ml @ As Directed STK-MED ONCE IV ; Start 07/11/19 at 07:53; Stop 07/11/19 at 07:53; Status DC Etomidate (Amidate) 20 mg STK-MED ONCE IV ; Start 07/11/19 at 07:53; Stop at 07:54; Status DC Midazolam HCl (Versed) 5 mg STK-MED ONCE .ROUTE ; Start 07/11/19 at 07:57; Stop 07/11/19 at 07:57; Status DC Fentanyl Citrate 30 ml @ 0 mls/hr CONT PRN IV SEE PROTOCOL Last administered on 08/05/19at 06:12; Start 07/11/19 at 08:15; Stop 08/05/19 at 09:19; Status DC Artificial Tears (Artificial Tears) 1 drop PRN Q1HR PRN OU DRY EYE, 1st choice; Start 07/11/19 at 08:15; Stop 08/17/19 at 05:31; Status DC Midazolam HCl 50 mg/Sodium Chloride 50 ml @ 0 mls/hr CONT PRN IV SEE PROTOCOL Last administered on 07/14/19at 22:39; Start 07/11/19 at 08:15; Stop 07/16/19 at 15:59; Status DC Etomidate (Amidate) 8 mg 1X ONCE IV Last administered on 07/11/19at 08:33; Start 07/11/19 at 08:30; Stop 07/11/19 at 08:31; Status DC Succinylcholine Chloride (Anectine) 120 mg 1X ONCE IV Last administered on 07/11/19at 08:34; Start 07/11/19 at 08:30; Stop 07/11/19 at 08:31; Status DC Midazolam HCl (Versed) 5 mg 1X ONCE IV ; Start 07/11/19 at 08:30; Stop 07/11/19 at 08:31; Status DC Potassium Chloride 15 meq/ Bicarbonate Dialysis Soln w/ out KCl 5,007.5 ml @ 1,000 mls/ hr Q5H1M IV Last administered on 07/12/19at 11:11; Start 07/11/19 at 12:00; Stop 07/12/19 at 11:15; Status DC Potassium Chloride 15 meq/ Bicarbonate Dialysis Soln w/ out KCl 5,007.5 ml @ 1,000 mls/ hr Q5H1M IV Last administered on 07/12/19at 11:12; Start 07/11/19 at 12:00; Stop 07/12/19 at 11:17; Status DC Potassium Chloride 15 meq/ Bicarbonate Dialysis Soln w/ out KCl 5,007.5 ml @ 1,000 mls/ hr Q5H1M IV Last administered on 07/12/19at 11:11; Start 07/11/19 at 12:00; Stop 07/12/19 at 11:19; Status DC Sodium Chloride 90 meq/Potassium Chloride 15 meq/ Potassium Phosphate 10 mmol/ Magnesium Sulfate 10 meq/Calcium Gluconate 20 meq/ Multivitamins 10 ml/Chromium/ Copper/Manganese/ Seleni/Zn 0.5 ml/ Total Parenteral Nutrition/Amino Acids/Dextrose/ Fat Emulsion Intravenous 1,400 ml @ 58.333 mls/ hr TPN CONT IV Last administered on 07/11/19at 21:42; Start 07/11/19 at 22:00; Stop 07/12/19 at 21:59; Status DC Heparin Sodium (Porcine) (Heparin Sodium) 5,000 unit Q8HRS SQ Last administered on 07/16/19at 05:55; Start 07/11/19 at 15:00; Stop 07/16/19 at 13:28; Status DC Meropenem 500 mg/ Sodium Chloride 50 ml @ 100 mls/hr Q6HRS IV Last administered on 07/13/19at 06:00; Start 07/12/19 at 09:00; Stop 07/13/19 at 07:29; Status DC Potassium Phosphate 20 mmol/ Sodium Chloride 106.6667 ml @ 51.667 m... 1X ONCE IV Last administered on 07/12/19at 11:22; Start 07/12/19 at 10:15; Stop 07/12/19 at 12:18; Status DC Acetaminophen (Tylenol Supp) 650 mg PRN Q6HRS PRN NV MILD PAIN / TEMP > 100.3'F Last administered on 08/15/19at 00:32; Start 07/12/19 at 10:30 Potassium Chloride/Water 100 ml @ 100 mls/hr Q1H IV Last administered on 07/12/19at 12:12; Start 07/12/19 at 11:00; Stop 07/12/19 at 12:59; Status DC Potassium Chloride 20 meq/ Bicarbonate Dialysis Soln w/ out KCl 5,010 ml @ 1,000 mls/hr Q5H1M IV Last administered on 07/13/19at 08:48; Start 07/12/19 at 12:00; Stop 07/13/19 at 13:03; Status DC Potassium Chloride 20 meq/ Bicarbonate Dialysis Soln w/ out KCl 5,010 ml @ 1,000 mls/hr Q5H1M IV Last administered on 07/17/19at 14:52; Start 07/12/19 at 11:30; Stop 07/17/19 at 19:59; Status DC Potassium Chloride 20 meq/ Bicarbonate Dialysis Soln w/ out KCl 5,010 ml @ 1,000 mls/hr Q5H1M IV Last administered on 07/17/19at 14:53; Start 07/12/19 at 11:30; Stop 07/17/19 at 19:59; Status DC Sodium Chloride 90 meq/Potassium Chloride 15 meq/ Potassium Phosphate 15 mmol/ Magnesium Sulfate 10 meq/Calcium Gluconate 15 meq/ Multivitamins 10 ml/Chromium/ Copper/Manganese/ Seleni/Zn 0.5 ml/ Total Parenteral Nutrition/Amino Acids/Dextrose/ Fat Emulsion Intravenous 1,400 ml @ 58.333 mls/ hr TPN CONT IV Last administered on 07/12/19at 22:17; Start 07/12/19 at 22:00; Stop 07/13/19 at 21:59; Status DC Cefepime HCl (Maxipime) 2 gm Q12HR IVP Last administered on 07/26/19at 20:56; Start 07/13/19 at 09:00; Stop 07/27/19 at 09:58; Status DC Daptomycin 500 mg/ Sodium Chloride 50 ml @ 100 mls/hr Q48H IV Last administered on 07/29/19at 09:57; Start 07/13/19 at 08:30; Stop 07/29/19 at 1 0:07; Status DC Lidocaine HCl (Buffered Lidocaine 1%) 3 ml 1X ONCE INJ Last administered on 07/13/19at 10:27; Start 07/13/19 at 10:30; Stop 07/13/19 at 10:31; Status DC Potassium Phosphate 20 mmol/ Sodium Chloride 106.6667 ml @ 51.667 m... 1X ONCE IV Last administered on 07/13/19at 12:51; Start 07/13/19 at 13:00; Stop 07/13/19 at 15:03; Status DC Sodium Chloride 90 meq/Potassium Chloride 15 meq/ Potassium Phosphate 18 mmol/ Magnesium Sulfate 8 meq/Calcium Gluconate 15 meq/ Multivitamins 10 ml/Chromium/ Copper/Manganese/ Seleni/Zn 0.5 ml/ Total Parenteral Nutrition/Amino Acids/Dextrose/ Fat Emulsion Intravenous 1,400 ml @ 58.333 mls/ hr TPN CONT IV Last administered on 07/13/19at 22:16; Start 07/13/19 at 22:00; Stop 07/14/19 at 21:59; Status DC Potassium Chloride 20 meq/ Bicarbonate Dialysis Soln w/ out KCl 5,010 ml @ 1,000 mls/hr Q5H1M IV Last administered on 07/17/19at 14:54; Start 07/13/19 at 16:00; Stop 07/17/19 at 19:59; Status DC Multi-Ingred Cream/Lotion/Oil/ Oint (Artificial Tears Eye Ointment) 1 ramu PRN Q1HR PRN OU DRY EYE, 2nd choice Last administered on 08/01/19at 08:19; Start 07/13/19 at 17:30 Sodium Chloride 90 meq/Potassium Chloride 15 meq/ Potassium Phosphate 18 mmol/ Magnesium Sulfate 8 meq/Calcium Gluconate 15 meq/ Multivitamins 10 ml/Chromium/ Copper/Manganese/ Seleni/Zn 0.5 ml/ Total Parenteral Nutrition/Amino Acids/Dextrose/ Fat Emulsion Intravenous 1,400 ml @ 58.333 mls/ hr TPN CONT IV Last administered on 07/14/19at 22:00; Start 07/14/19 at 22:00; Stop 07/15/19 at 21:59; Status DC Albumin Human 500 ml @ 125 mls/hr 1X ONCE IV ; Start 07/14/19 at 14:15; Stop 07/14/19 at 18:14; Status DC Sodium Chloride 90 meq/Potassium Chloride 15 meq/ Potassium Phosphate 18 mmol/ Magnesium Sulfate 8 meq/Calcium Gluconate 15 meq/ Multivitamins 10 ml/Chromium/ Copper/Manganese/ Seleni/Zn 0.5 ml/ Insulin Human Regular 10 unit/ Total Parenteral Nutrition/Amino Acids/Dextrose/ Fat Emulsion Intravenous 1,400 ml @ 58.333 mls/ hr TPN CONT IV Last administered on 07/15/19at 21:43; Start 07/15/19 at 22:00; Stop 07/16/19 at 21:59; Status DC Lidocaine HCl (Buffered Lidocaine 1%) 3 ml STK-MED ONCE .ROUTE ; Start 07/13/19 at 10:00; Stop 07/15/19 at 13:57; Status DC Midazolam HCl 100 mg/Sodium Chloride 100 ml @ 7 mls/hr CONT PRN IV SEE PROTOCOL Last administered on 07/27/19at 15:35; Start 07/16/19 at 16:00 Sodium Chloride 90 meq/Potassium Chloride 15 meq/ Potassium Phosphate 18 mmol/ Magnesium Sulfate 8 meq/Calcium Gluconate 15 meq/ Multivitamins 10 ml/Chromium/ Copper/Manganese/ Seleni/Zn 0.5 ml/ Insulin Human Regular 15 unit/ Total Parenteral Nutrition/Amino Acids/Dextrose/ Fat Emulsion Intravenous 1,400 ml @ 58.333 mls/ hr TPN CONT IV Last administered on 07/16/19at 20:34; Start 07/16/19 at 22:00; Stop 07/17/19 at 21:59; Status DC Info (Icu Electrolyte Protocol) 1 ea CONT PRN PRN MC PER PROTOCOL; Start 07/17/19 at 13:15 Sodium Chloride 90 meq/Potassium Chloride 15 meq/ Potassium Phosphate 18 mmol/ Magnesium Sulfate 8 meq/Calcium Gluconate 15 meq/ Multivitamins 10 ml/Chromium/ Copper/Manganese/ Seleni/Zn 0.5 ml/ Insulin Human Regular 15 unit/ Total Parenteral Nutrition/Amino Acids/Dextrose/ Fat Emulsion Intravenous 1,400 ml @ 58.333 mls/ hr TPN CONT IV Last administered on 07/17/19at 22:05; Start 07/17/19 at 22:00; Stop 07/18/19 at 21:59; Status DC Potassium Chloride 15 meq/ Bicarbonate Dialysis Soln w/ out KCl 5,007.5 ml @ 1,000 mls/ hr Q5H1M IV Last administered on 07/20/19at 18:14; Start 07/17/19 at 20:00; Stop 07/21/19 at 13:08; Status DC Potassium Chloride 15 meq/ Bicarbonate Dialysis Soln w/ out KCl 5,007.5 ml @ 1,000 mls/ hr Q5H1M IV Last administered on 07/20/19at 18:14; Start 07/17/19 at 20:00; Stop 07/21/19 at 13:08; Status DC Potassium Chloride 15 meq/ Bicarbonate Dialysis Soln w/ out KCl 5,007.5 ml @ 1,000 mls/ hr Q5H1M IV Last administered on 07/20/19at 18:14; Start 07/17/19 at 20:00; Stop 07/21/19 at 13:08; Status DC Iohexol (Omnipaque 240 Mg/ml) 30 ml 1X ONCE PO Last administered on 07/18/19at 11:30; Start 07/18/19 at 11:30; Stop 07/18/19 at 11:33; Status DC Info (CONTRAST GIVEN -- Rx MONITORING) 1 each PRN DAILY PRN MC SEE COMMENTS; Start 07/18/19 at 11:45; Stop 07/20/19 at 11:44; Status DC Sodium Chloride 90 meq/Potassium Chloride 15 meq/ Potassium Phosphate 18 mmol/ Magnesium Sulfate 8 meq/Calcium Gluconate 15 meq/ Multivitamins 10 ml/Chromium/ Copper/Manganese/ Seleni/Zn 0.5 ml/ Insulin Human Regular 15 unit/ Total Parenteral Nutrition/Amino Acids/Dextrose/ Fat Emulsion Intravenous 1,400 ml @ 58.333 mls/ hr TPN CONT IV Last administered on 07/18/19at 21:47; Start 07/18/19 at 22:00; Stop 07/19/19 at 21:59; Status DC Sodium Chloride 90 meq/Potassium Chloride 15 meq/ Potassium Phosphate 18 mmol/ Magnesium Sulfate 8 meq/Calcium Gluconate 15 meq/ Multivitamins 10 ml/Chromium/ Copper/Manganese/ Seleni/Zn 0.5 ml/ Insulin Human Regular 20 unit/ Total Parenteral Nutrition/Amino Acids/Dextrose/ Fat Emulsion Intravenous 1,400 ml @ 58.333 mls/ hr TPN CONT IV Last administered on 07/19/19at 21:36; Start 07/19/19 at 22:00; Stop 07/20/19 at 21:59; Status DC Alteplase, Recombinant (Cathflo For Central Catheter Clearance) 1 mg 1X ONCE INT CAT Last administered on 07/19/19at 20:03; Start 07/19/19 at 19:30; Stop 07/19/19 at 19:46; Status DC Alteplase, Recombinant (Cathflo For Central Catheter Clearance) 1 mg 1X ONCE INT CAT Last administered on 07/19/19at 22:05; Start 07/19/19 at 22:00; Stop 07/19/19 at 22:01; Status DC Sodium Chloride 90 meq/Potassium Chloride 15 meq/ Potassium Phosphate 18 mmol/ Magnesium Sulfate 8 meq/Calcium Gluconate 15 meq/ Multivitamins 10 ml/Chromium/ Copper/Manganese/ Seleni/Zn 0.5 ml/ Insulin Human Regular 20 unit/ Total Parenteral Nutrition/Amino Acids/Dextrose/ Fat Emulsion Intravenous 1,400 ml @ 58.333 mls/ hr TPN CONT IV Last administered on 07/20/19at 21:30; Start 07/20/19 at 22:00; Stop 07/21/19 at 21:59; Status DC Dexmedetomidine HCl 400 mcg/ Sodium Chloride 100 ml @ 0 mls/hr CONT PRN IV ANXIETY / AGITATION Last administered on 08/17/19at 05:56; Start 07/21/19 at 08:15 Sodium Chloride 500 ml @ 500 mls/hr 1X PRN PRN IV ELEVATED BP, SEE COMMENTS; Start 07/21/19 at 08:15 Atropine Sulfate (ATROPINE 0.5mg SYRINGE) 0.5 mg PRN Q5MIN PRN IV SEE COMMENTS; Start 07/21/19 at 08:15 Furosemide (Lasix) 20 mg 1X ONCE IVP Last administered on 07/21/19at 08:19; Start 07/21/19 at 08:15; Stop 07/21/19 at 08:16; Status DC Lidocaine HCl (Buffered Lidocaine 1%) 3 ml STK-MED ONCE .ROUTE ; Start 07/21/19 at 08:39; Stop 07/21/19 at 08:39; Status DC Lidocaine HCl (Buffered Lidocaine 1%) 6 ml 1X ONCE INJ Last administered on 07/21/19at 09:05; Start 07/21/19 at 09:00; Stop 07/21/19 at 09:06; Status DC Sodium Chloride 90 meq/Potassium Chloride 15 meq/ Potassium Phosphate 18 mmol/ Magnesium Sulfate 8 meq/Calcium Gluconate 15 meq/ Multivitamins 10 ml/Chromium/ Copper/Manganese/ Seleni/Zn 0.5 ml/ Insulin Human Regular 20 unit/ Total Parenteral Nutrition/Amino Acids/Dextrose/ Fat Emulsion Intravenous 1,400 ml @ 58.333 mls/ hr TPN CONT IV Last administered on 07/21/19at 22:45; Start 07/21/19 at 22:00; Stop 07/22/19 at 21:59; Status DC Sodium Chloride 1,000 ml @ 1,000 mls/hr Q1H PRN IV hypotension; Start 07/22/19 at 07:30; Stop 07/22/19 at 13:29; Status DC Albumin Human 200 ml @ 200 mls/hr 1X PRN PRN IV Hypotension Last administered on 07/22/19at 09:36; Start 07/22/19 at 07:30; Stop 07/22/19 at 13:29; Status DC Sodium Chloride (Normal Saline Flush) 10 ml 1X PRN PRN IV AP catheter pack; Start 07/22/19 at 07:30; Stop 07/22/19 at 21:29; Status DC Sodium Chloride (Normal Saline Flush) 10 ml 1X PRN PRN IV [employer] catheter pack; Start 07/22/19 at 07:30; Stop 07/23/19 at 07:29; Status DC Sodium Chloride 1,000 ml @ 400 mls/hr Q2H30M PRN IV PATENCY; Start 07/22/19 at 07:30; Stop 07/22/19 at 19:29; Status DC Info (PHARMACY MONITORING -- do not chart) 1 each PRN DAILY PRN MC SEE COMMENTS; Start 07/22/19 at 07:30; Stop 07/22/19 at 13:02; Status DC Info (PHARMACY MONITORING -- do not chart) 1 each PRN DAILY PRN MC SEE COMMENTS; Start 07/22/19 at 07:30; Stop 07/24/19 at 12:45; Status DC Sodium Chloride 90 meq/Potassium Chloride 15 meq/ Potassium Phosphate 10 mmol/ Magnesium Sulfate 8 meq/Calcium Gluconate 15 meq/ Multivitamins 10 ml/Chromium/ Copper/Manganese/ Seleni/Zn 0.5 ml/ Insulin Human Regular 25 unit/ Total Parenteral Nutrition/Amino Acids/Dextrose/ Fat Emulsion Intravenous 1,400 ml @ 58.333 mls/ hr TPN CONT IV Last administered on 07/22/19at 22:19; Start 07/22/19 at 22:00; Stop 07/23/19 at 21:59; Status DC Heparin Sodium (Porcine) (Heparin Sodium) 5,000 unit Q12HR SQ Last administered on 08/14/19at 08:59; Start 07/22/19 at 21:00; Stop 08/14/19 at 10:05; Status DC Ondansetron HCl (Zofran) 4 mg PRN Q6HRS PRN IV NAUSEA/VOMITING; Start 07/25/19 at 07:00; Stop 07/26/19 at 06:59; Status DC Fentanyl Citrate (Fentanyl 2ml Vial) 25 mcg PRN Q5MIN PRN IV MILD PAIN 1-3; Start 07/25/19 at 07:00; Stop 07/26/19 at 06:59; Status DC Fentanyl Citrate (Fentanyl 2ml Vial) 50 mcg PRN Q5MIN PRN IV MODERATE TO SEVERE PAIN; Start 07/25/19 at 07:00; Stop 07/26/19 at 06:59; Status DC Ringer's Solution 1,000 ml @ 30 mls/hr Q24H IV ; Start 07/25/19 at 07:00; Stop 07/25/19 at 18:59; Status DC Lidocaine HCl (Xylocaine-Mpf 1% 2ml Vial) 2 ml PRN 1X PRN ID PRIOR TO IV START; Start 07/25/19 at 07:00; Stop 07/26/19 at 06:59; Status DC Prochlorperazine Edisylate (Compazine) 5 mg PACU PRN PRN IV NAUSEA, MRX1; Start 07/25/19 at 07:00; Stop 07/26/19 at 06:59; Status DC Sodium Chloride 1,000 ml @ 1,000 mls/hr Q1H PRN IV hypotension; Start 07/23/19 at 09:10; Stop 07/23/19 at 15:09; Status DC Albumin Human 200 ml @ 200 mls/hr 1X PRN PRN IV Hypotension Last administered on 07/23/19at 10:10; Start 07/23/19 at 09:15; Stop 07/23/19 at 15:14; Status DC Sodium Chloride 1,000 ml @ 400 mls/hr Q2H30M PRN IV PATENCY; Start 07/23/19 at 09:10; Stop 07/23/19 at 21:09; Status DC Info (PHARMACY MONITORING -- do not chart) 1 each PRN DAILY PRN MC SEE COMMENTS; Start 07/23/19 at 09:15; Stop 07/24/19 at 12:45; Status DC Info (PHARMACY MONITORING -- do not chart) 1 each PRN DAILY PRN MC SEE COMMENTS; Start 07/23/19 at 09:15; Stop 07/24/19 at 12:45; Status DC Sodium Chloride 90 meq/Potassium Chloride 15 meq/ Potassium Phosphate 10 mmol/ Magnesium Sulfate 8 meq/Calcium Gluconate 15 meq/ Multivitamins 10 ml/Chromium/ Copper/Manganese/ Seleni/Zn 0.5 ml/ Insulin Human Regular 25 unit/ Total Parenteral Nutrition/Amino Acids/Dextrose/ Fat Emulsion Intravenous 1,400 ml @ 58.333 mls/ hr TPN CONT IV Last administered on 07/23/19at 22:10; Start 07/23/19 at 22:00; Stop 07/24/19 at 21:59; Status DC Magnesium Sulfate 50 ml @ 25 mls/hr PRN DAILY PRN IV for Mag < 1.7 on am labs Last administered on 08/08/19at 17:27; Start 07/24/19 at 09:15 Sodium Chloride 90 meq/Potassium Chloride 15 meq/ Potassium Phosphate 10 mmol/ Magnesium Sulfate 8 meq/Calcium Gluconate 15 meq/ Multivitamins 10 ml/Chromium/ Copper/Manganese/ Seleni/Zn 0.5 ml/ Insulin Human Regular 25 unit/ Total Parenteral Nutrition/Amino Acids/Dextrose/ Fat Emulsion Intravenous 1,400 ml @ 58.333 mls/ hr TPN CONT IV Last administered on 07/24/19at 21:20; Start 07/24/19 at 22:00; Stop 07/25/19 at 21:59; Status DC Sodium Chloride 1,000 ml @ 1,000 mls/hr Q1H PRN IV hypotension; Start 07/24/19 at 12:23; Stop 07/24/19 at 18:22; Status DC Albumin Human 200 ml @ 200 mls/hr 1X ONCE IV Last administered on 07/24/19at 13:34; Start 07/24/19 at 12:30; Stop 07/24/19 at 13:29; Status DC Diphenhydramine HCl (Benadryl) 25 mg 1X PRN PRN IV ITCHING; Start 07/24/19 at 12:30; Stop 07/25/19 at 12:29; Status DC Diphenhydramine HCl (Benadryl) 25 mg 1X PRN PRN IV ITCHING; Start 07/24/19 at 12:30; Stop 07/25/19 at 12:29; Status DC Info (PHARMACY MONITORING -- do not chart) 1 each PRN DAILY PRN MC SEE COMMENTS; Start 07/24/19 at 12:30; Status Cancel Bupivacaine HCl/ Epinephrine Bitart (Sensorcain-Epi 0.5%-1:[id number] Mpf) 30 ml STK-MED ONCE .ROUTE Last administered on 07/25/19at 11:44; Start 07/25/19 at 11:00; Stop 07/25/19 at 11:01; Status DC Cellulose (Surgicel Fibrillar 1x2) 1 each STK-MED ONCE .ROUTE ; Start 07/25/19 at 11:00; Stop 07/25/19 at 11:01; Status DC Sodium Chloride 90 meq/Potassium Chloride 15 meq/ Potassium Phosphate 10 mmol/ Magnesium Sulfate 12 meq/Calcium Gluconate 15 meq/ Multivitamins 10 ml/Chromium/ Copper/Manganese/ Seleni/Zn 0.5 ml/ Insulin Human Regular 25 unit/ Total Parenteral Nutrition/Amino Acids/Dextrose/ Fat Emulsion Intravenous 1,400 ml @ 58.333 mls/ hr TPN CONT IV Last administered on 07/25/19at 22:24; Start 07/25/19 at 22:00; Stop 07/26/19 at 21:59; Status DC Propofol 20 ml @ As Directed STK-MED ONCE IV ; Start 07/25/19 at 11:07; Stop 07/25/19 at 11:07; Status DC Cellulose (Surgicel Hemostat 4x8) 1 each STK-MED ONCE .ROUTE Last administered on 07/25/19at 11:44; Start 07/25/19 at 11:55; Stop 07/25/19 at 11:56; Status DC Sevoflurane (Ultane) 60 ml STK-MED ONCE IH ; Start 07/25/19 at 12:46; Stop 07/25/19 at 12:46; Status DC Sodium Chloride 1,000 ml @ 1,000 mls/hr Q1H PRN IV hypotension; Start 07/25/19 at 13:51; Stop 07/25/19 at 19:50; Status DC Albumin Human 200 ml @ 200 mls/hr 1X PRN PRN IV Hypotension Last administered on 07/25/19at 14:51; Start 07/25/19 at 14:00; Stop 07/25/19 at 19:59; Status DC Diphenhydramine HCl (Benadryl) 25 mg 1X PRN PRN IV ITCHING; Start 07/25/19 at 14:00; Stop 07/26/19 at 13:59; Status DC Diphenhydramine HCl (Benadryl) 25 mg 1X PRN PRN IV ITCHING; Start 07/25/19 at 14:00; Stop 07/26/19 at 13:59; Status DC Sodium Chloride 1,000 ml @ 400 mls/hr Q2H30M PRN IV PATENCY; Start 07/25/19 at 13:51; Stop 07/26/19 at 01:50; Status DC Info (PHARMACY MONITORING -- do not chart) 1 each PRN DAILY PRN MC SEE COMMENTS; Start 07/25/19 at 14:00; Stop 07/28/19 at 08:16; Status DC Heparin Sodium (Porcine) (Hep Lock Adult) 500 unit STK-MED ONCE IVP ; Start 07/26/19 at 09:29; Stop 07/26/19 at 09:30; Status DC Sodium Chloride 1,000 ml @ 1,000 mls/hr Q1H PRN IV hypotension; Start 07/26/19 at 10:43; Stop 07/26/19 at 16:42; Status DC Sodium Chloride 1,000 ml @ 400 mls/hr Q2H30M PRN IV PATENCY; Start 07/26/19 at 10:43; Stop 07/26/19 at 22:42; Status DC Info (PHARMACY MONITORING -- do not chart) 1 each PRN DAILY PRN MC SEE [employer] CORONEL; Start 07/26/19 at 10:45; Status UNV Info (PHARMACY MONITORING -- do not chart) 1 each PRN DAILY PRN MC SEE COMMENTS; Start 07/26/19 at 10:45; Status UNV Sodium Chloride 90 meq/Potassium Chloride 15 meq/ Magnesium Sulfate 12 meq/Calcium Gluconate 15 meq/ Multivitamins 10 ml/Chromium/ Copper/Manganese/ Seleni/Zn 0.5 ml/ Insulin Human Regular 25 unit/ Total Parenteral Nutrit ion/Amino Acids/Dextrose/ Fat Emulsion Intravenous 1,400 ml @ 58.333 mls/ hr TPN CONT IV Last administered on 07/26/19at 22:13; Start 07/26/19 at 22:00; Stop 07/27/19 at 21:59; Status DC Sodium Chloride 1,000 ml @ 1,000 mls/hr Q1H PRN IV hypotension; Start 07/27/19 at 07:50; Stop 07/27/19 at 13:49; Status DC Albumin Human 200 ml @ 200 mls/hr 1X ONCE IV ; Start 07/27/19 at 08:00; Stop 07/27/19 at 08:53; Status DC Diphenhydramine HCl (Benadryl) 25 mg 1X PRN PRN IV ITCHING; Start 07/27/19 at 08:00; Stop 07/28/19 at 07:59; Status DC Diphenhydramine HCl (Benadryl) 25 mg 1X PRN PRN IV ITCHING; Start 07/27/19 at 08:00; Stop 07/28/19 at 07:59; Status DC Info (PHARMACY MONITORING -- do not chart) 1 each PRN DAILY PRN MC SEE COMMENTS; Start 07/27/19 at 08:00; Stop 07/28/19 at 08:16; Status DC Albumin Human 50 ml @ 50 mls/hr 1X ONCE IV ; Start 07/27/19 at 08:53; Stop 07/27/19 at 08:56; Status DC Albumin Human 200 ml @ 50 mls/hr PRN 1X PRN IV HYPOTENSION Last administered on 08/02/19at 11:54; Start 07/27/19 at 09:00 Meropenem 500 mg/ Sodium Chloride 50 ml @ 100 mls/hr Q12H IV Last administered on 08/16/19at 10:45; Start 07/27/19 at 10:00; Stop 08/16/19 at 12:37; Status DC Sodium Chloride 90 meq/Magnesium Sulfate 12 meq/ Calcium Gluconate 15 meq/ Multivitamins 10 ml/Chromium/ Copper/Manganese/ Seleni/Zn 0.5 ml/ Insulin Human Regular 25 unit/ Total Parenteral Nutrition/Amino Acids/Dextrose/ Fat Emulsion Intravenous 1,400 ml @ 58.333 mls/ hr TPN CONT IV Last administered on 07/27/19at 21:41; Start 07/27/19 at 22:00; Stop 07/28/19 at 21:59; Status DC Sodium Chloride 1,000 ml @ 1,000 mls/hr Q1H PRN IV hypotension; Start 07/28/19 at 07:58; Stop 07/28/19 at 13:57; Status DC Albumin Human 200 ml @ 200 mls/hr 1X PRN PRN IV Hypotension Last administered on 07/28/19at 09:30; Start 07/28/19 at 08:00; Stop 07/28/19 at 13:59; Status DC Sodium Chloride 1,000 ml @ 400 mls/hr Q2H30M PRN IV PATENCY; Start 07/28/19 at 07:58; Stop 07/28/19 at 19:57; Status DC Info (PHARMACY MONITORING -- do not chart) 1 each PRN DAILY PRN MC SEE COMMENTS; Start 07/28/19 at 08:00; Status Cancel Info (PHARMACY MONITORING -- do not chart) 1 each PRN DAILY PRN MC SEE COMMENTS; Start 07/28/19 at 08:15; Status UNV Sodium Chloride 90 meq/Potassium Phosphate 5 mmol/ Magnesium Sulfate 12 meq/Calcium Gluconate 15 meq/ Multivitamins 10 ml/Chromium/ Copper/Manganese/ Seleni/Zn 0.5 ml/ Insulin Human Regular 30 unit/ Total Parenteral Nutrition/Alfaro o Acids/Dextrose/ Fat Emulsion Intravenous 1,400 ml @ 58.333 mls/ hr TPN CONT IV Last administered on 07/28/19at 22:08; Start 07/28/19 at 22:00; Stop 07/29/19 at 21:59; Status DC Linezolid/Dextrose 300 ml @ 300 mls/hr Q12HR IV Last administered on 08/08/19at 20:40; Start 07/29/19 at 11:00; Stop 08/09/19 at 08:10; Status DC Sodium Chloride 90 meq/Potassium Phosphate 15 mmol/ Magnesium Sulfate 12 meq/Calcium Gluconate 15 meq/ Multivitamins 10 ml/Chromium/ Copper/Manganese/ Seleni/Zn 0.5 ml/ Insulin Human Regular 30 unit/ Total Parenteral Nutrition/Amino Acids/Dextrose/ Fat Emulsion Intravenous 1,400 ml @ 58.333 mls/ hr TPN CONT IV Last administered on 07/29/19at 21:49; Start 07/29/19 at 22:00; Stop 07/30/19 at 21:59; Status DC Sodium Chloride 90 meq/Potassium Phosphate 15 mmol/ Magnesium Sulfate 12 meq/Calcium Gluconate 15 meq/ Multivitamins 10 ml/Chromium/ Copper/Manganese/ Seleni/Zn 0.5 ml/ Insulin Human Regular 40 unit/ Total Parenteral Nutrition/Amino Acids/Dextrose/ Fat Emulsion Intravenous 1,400 ml @ 58.333 mls/ hr TPN CONT IV Last administered on 07/30/19at 21:21; Start 07/30/19 at 22:00; Stop 07/31/19 at 21:59; Status DC Sodium Chloride 1,000 ml @ 1,000 mls/hr Q1H PRN IV hypotension; Start 07/30/19 at 13:26; Stop 07/30/19 at 19:25; Status DC Albumin Human 200 ml @ 200 mls/hr 1X PRN PRN IV Hypotension Last administered on 07/30/19at 15:00; Start 07/30/19 at 13:30; Stop 07/30/19 at 19:29; Status DC Sodium Chloride (Normal Saline Flush) 10 ml 1X PRN PRN IV AP catheter pack; Start 07/30/19 at 13:30; Stop 07/31/19 at 13:29; Status DC Sodium Chloride (Normal Saline Flush) 10 ml 1X PRN PRN IV [employer] catheter pack; Start 07/30/19 at 13:30; Stop 07/31/19 at 13:29; Status DC Sodium Chloride 1,000 ml @ 400 mls/hr Q2H30M PRN IV PATENCY; Start 07/30/19 at 13:26; Stop 07/31/19 at 01:25; Status DC Info (PHARMACY MONITORING -- do not chart) 1 each PRN DAILY PRN MC SEE COMMENTS; Start 07/30/19 at 13:30; Stop 07/30/19 at 13:33; Status DC Info (PHARMACY MONITORING -- do not chart) 1 each PRN DAILY PRN MC SEE COMMENTS; Start 07/30/19 at 13:30; Stop 07/30/19 at 13:34; Status DC Sodium Chloride 90 meq/Potassium Phosphate 19 mmol/ Magnesium Sulfate 12 meq/Calcium Gluconate 15 meq/ Multivitamins 10 ml/Chromium/ Copper/Manganese/ Seleni/Zn 0.5 ml/ Insulin Human Regular 40 unit/ Total Parenteral Nutrition/Amino Acids/Dextrose/ Fat Emulsion Intravenous 1,400 ml @ 58.333 mls/ hr TPN CONT IV Last administered on 07/31/19at 21:54; Start 07/31/19 at 22:00; Stop 08/01/19 at 21:59; Status DC Sodium Chloride 1,000 ml @ 1,000 mls/hr Q1H PRN IV hypotension; Start 08/01/19 at 09:35; Stop 08/01/19 at 15:34; Status DC Albumin Human 200 ml @ 200 mls/hr 1X PRN PRN IV Hypotension; Start 08/01/19 at 09:45; Stop 08/01/19 at 15:44; Status DC Diphenhydramine HCl (Benadryl) 25 mg 1X PRN PRN IV ITCHING; Start 08/01/19 at 09:45; Stop 08/02/19 at 09:44; Status DC Diphenhydramine HCl (Benadryl) 25 mg 1X PRN PRN IV ITCHING; Start 08/01/19 at 09:45; Stop 08/02/19 at 09:44; Status DC Sodium Chloride 1,000 ml @ 400 mls/hr Q2H30M PRN IV PATENCY; Start 08/01/19 at 09:35; Stop 08/01/19 at 21:34; Status DC Info (PHARMACY MONITORING -- do not chart) 1 each PRN DAILY PRN MC SEE COMMENTS; Start 08/01/19 at 09:45; Status Cancel Sodium Chloride 100 meq/Potassium Phosphate 19 mmol/ Magnesium Sulfate 12 meq/Calcium Gluconate 15 meq/ Multivitamins 10 ml/Chromium/ Copper/Manganese/ Seleni/Zn 0.5 ml/ Insulin Human Regular 40 unit/ Potassium Chloride 20 meq/ Total Parenteral Nutrition/Amino Acids/Dextrose/ Fat Emulsion Intravenous 1,400 ml @ 58.333 mls/ hr TPN CONT IV Last administered on 08/01/19at 22:02; Start 08/01/19 at 22:00; Stop 08/02/19 at 21:59; Status DC Furosemide (Lasix) 40 mg 1X ONCE IVP Last administered on 08/01/19at 14:39; Start 08/01/19 at 14:30; Stop 08/01/19 at 14:31; Status DC Metronidazole 100 ml @ 100 mls/hr Q8HRS IV Last administered on 08/09/19at 06:04; Start 08/02/19 at 10:00; Stop 08/09/19 at 08:10; Status DC Sodium Chloride 1,000 ml @ 1,000 mls/hr Q1H PRN IV hypotension; Start 08/02/19 at 08:00; Stop 08/02/19 at 13:59; Status DC Albumin Human 200 ml @ 200 mls/hr 1X PRN PRN IV Hypotension; Start 08/02/19 at 08:00; Stop 08/02/19 at 13:59; Status DC Sodium Chloride 1,000 ml @ 400 mls/hr Q2H30M PRN IV PATENCY; Start 08/02/19 at 08:00; Stop 08/02/19 at 19:59; Status DC Info (PHARMACY MONITORING -- do not chart) 1 each PRN DAILY PRN MC SEE COMMENTS; Start 08/02/19 at 11:30; Status UNV Info (PHARMACY MONITORING -- do not chart) 1 each PRN DAILY PRN MC SEE COMMENTS; Start 08/02/19 at 11:30; Stop 08/04/19 at 12:13; Status DC Sodium Chloride 100 meq/Potassium Phosphate 19 mmol/ Magnesium Sulfate 12 meq/Calcium Gluconate 15 meq/ Multivitamins 10 ml/Chromium/ Copper/Manganese/ Seleni/Zn 0.5 ml/ Insulin Human Regular 40 unit/ Potassium Chloride 20 meq/ Total Parenteral Nutrition/Amino Acids/Dextrose/ Fat Emulsion Intravenous 1,400 ml @ 58.333 mls/ hr TPN CONT IV Last administered on 08/02/19at 21:52; Start 08/02/19 at 22:00; Stop 08/03/19 at 21:59; Status DC Sodium Chloride (Normal Saline Flush) 10 ml QSHIFT PRN IV AFTER MEDS AND BLOOD DRAWS; Start 08/02/19 at 15:00 Sodium Chloride (Normal Saline Flush) 10 ml PRN Q5MIN PRN IV AFTER MEDS AND B LOOD DRAWS; Start 08/02/19 at 15:00 Sodium Chloride (Normal Saline Flush) 20 ml PRN Q5MIN PRN IV AFTER MEDS AND BLOOD DRAWS; Start 08/02/19 at 15:00 Sodium Chloride 100 meq/Potassium Phosphate 19 mmol/ Magnesium Sulfate 12 meq/Calcium Gluconate 15 meq/ Multivitamins 10 ml/Chromium/ Copper/Manganese/ Seleni/Zn 0.5 ml/ Insulin Human Regular 40 unit/ Potassium Chloride 20 meq/ Total Parenteral Nutrition/Amino Acids/Dextrose/ Fat Emulsion Intravenous 1,400 ml @ 58.333 mls/ hr TPN CONT IV Last administered on 08/03/19at 21:20; Start 08/03/19 at 22:00; Stop 08/04/19 at 21:59; Status DC Lidocaine HCl (Buffered Lidocaine 1%) 3 ml STK-MED ONCE .ROUTE ; Start 08/03/19 at 13:16; Stop 08/03/19 at 13:16; Status DC Lidocaine HCl (Buffered Lidocaine 1%) 6 ml 1X ONCE INJ Last administered on 08/03/19at 13:45; Start 08/03/19 at 13:30; Stop 08/03/19 at 13:31; Status DC Albumin Human 100 ml @ 100 mls/hr 1X ONCE IV Last administered on 08/03/19at 15:41; Start 08/03/19 at 15:00; Stop 08/03/19 at 15:59; Status DC Albumin Human 50 ml @ 50 mls/hr 1X ONCE IV Last administered on 08/03/19at 15:00; Start 08/03/19 at 15:00; Stop 08/03/19 at 15:59; Status DC Info (PHARMACY MONITORING -- do not chart) 1 each PRN DAILY PRN MC SEE COMMENTS; Start 08/04/19 at 11:30; Status Cancel Info (PHARMACY MONITORING -- do not chart) 1 each PRN DAILY PRN MC SEE COMMENTS; Start 08/04/19 at 11:30; Status UNV Sodium Chloride 100 meq/Potassium Phosphate 10 mmol/ Magnesium Sulfate 12 meq/Calcium Gluconate 15 meq/ Multivitamins 10 ml/Chromium/ Copper/Manganese/ Seleni/Zn 0.5 ml/ Insulin Human Regular 35 unit/ Potassium Chloride 20 meq/ Total Parenteral Nutrition/Amino Acids/Dextrose/ Fat Emulsion Intravenous 1,400 ml @ 58.333 mls/ hr TPN CONT IV Last administered on 08/04/19at 22:10; Start 08/04/19 at 22:00; Stop 08/05/19 at 21:59; Status DC Sodium Chloride 100 meq/Potassium Phosphate 5 mmol/ Magnesium Sulfate 12 meq/C alcium Gluconate 15 meq/ Multivitamins 10 ml/Chromium/ Copper/Manganese/ Seleni/Zn 0.5 ml/ Insulin Human Regular 35 unit/ Potassium Chloride 20 meq/ Total Parenteral Nutrition/Amino Acids/Dextrose/ Fat Emulsion Intravenous 1,400 ml @ 58.333 mls/ hr TPN CONT IV Last administered on 08/05/19at 22:59; Start 08/05/19 at 22:00; Stop 08/06/19 at 21:59; Status DC Sodium Chloride 1,000 ml @ 1,000 mls/hr Q1H PRN IV hypotension; Start 08/06/19 at 08:27; Stop 08/06/19 at 14:26; Status DC Albumin Human 200 ml @ 200 mls/hr 1X PRN PRN IV Hypotension Last administered on 08/06/19at 09:18; Start 08/06/19 at 08:30; Stop 08/06/19 at 14:29; Status DC Sodium Chloride 1,000 ml @ 400 mls/hr Q2H30M PRN IV PATENCY; Start 08/06/19 at 08:27; Stop 08/06/19 at 20:26; Status DC Info (PHARMACY MONITORING -- do not chart) 1 each PRN DAILY PRN MC SEE COMMENTS; Start 08/06/19 at 08:30; Status Cancel Info (PHARMACY MONITORING -- do not chart) 1 each PRN DAILY PRN MC SEE COMMENTS; Start 08/06/19 at 08:30; Stop 08/14/19 at 13:10; Status DC Sodium Chloride 100 meq/Potassium Chloride 40 meq/ Magnesium Sulfate 15 meq/Calcium Gluconate 15 meq/ Multivitamins 10 ml/Chromium/ Copper/Manganese/ Seleni/Zn 0.5 ml/ Insulin Human Regular 35 unit/ Total Parenteral Nutrition/Amino Acids/Dextrose/ Fat Emulsion Intravenous 1,400 ml @ 58.333 mls/ hr TPN CONT IV Last administered on 08/06/19at 22:00; Start 08/06/19 at 22:00; Stop 08/07/19 at 21:59; Status DC Potassium Chloride/Water 100 ml @ 100 mls/hr 1X ONCE IV Last administered on 08/06/19at 17:28; Start 08/06/19 at 14:45; Stop 08/06/19 at 15:44; Status DC Sodium Chloride 100 meq/Potassium Chloride 40 meq/ Magnesium Sulfate 15 meq/Calcium Gluconate 15 meq/ Multivitamins 10 ml/Chromium/ Copper/Manganese/ Seleni/Zn 0.5 ml/ Insulin Human Regular 35 unit/ Total Parenteral Nutrition/Amino Acids/Dextrose/ Fat Emulsion Intravenous 1,400 ml @ 58.333 mls/ hr TPN CONT IV Last administered on 08/07/19at 22:46; Start 08/07/19 at 22:00; Stop 08/08/19 at 21:59; Status DC Sodium Chloride 100 meq/Potassium Chloride 40 meq/ Magnesium Sulfate 20 meq/Calcium Gluconate 15 meq/ Multivitamins 10 ml/Chromium/ Copper/Manganese/ Seleni/Zn 0.5 ml/ Insulin Human Regular 35 unit/ Total Parenteral Nutrition/Amino Acids/Dextrose/ Fat Emulsion Intravenous 1,400 ml @ 58.333 mls/ hr TPN CONT IV Last administered on 08/08/19at 22:31; Start 08/08/19 at 22:00; Stop 08/09/19 at 21:59; Status DC Fentanyl Citrate (Fentanyl 2ml Vial) 50 mcg PRN Q2HR PRN IVP PAIN Last administered on 08/15/19at 13:32; Start 08/08/19 at 21:00; Stop 08/16/19 at 12:53; Status DC Fentanyl Citrate (Fentanyl 2ml Vial) 25 mcg PRN Q2HR PRN IVP PAIN; Start 08/08/19 at 21:00; Stop 08/16/19 at 12:54; Status DC Enoxaparin Sodium (Lovenox 100mg Syringe) 100 mg Q12HR SQ ; Start 08/09/19 at 21:00; Status UNV Amino Acids/ Glycerin/ Electrolytes 1,000 ml @ 75 mls/hr [id number] IV ; Start 08/08/19 at 21:15; Status UNV Sodium Chloride 1,000 ml @ 1,000 mls/hr Q1H PRN IV hypotension; Start 08/09/19 at 07:56; Stop 08/09/19 at 13:55; Status DC Albumin Human 200 ml @ 200 mls/hr 1X PRN PRN IV Hypotension Last administered on 08/09/19at 08:40; Start 08/09/19 at 08:00; Stop 08/09/19 at 13:59; Status DC Sodium Chloride 1,000 ml @ 400 mls/hr Q2H30M PRN IV PATENCY; Start 08/09/19 at 07:56; Stop 08/09/19 at 19:55; Status DC Info (PHARMACY MONITORING -- do not chart) 1 each PRN DAILY PRN MC SEE COMMENTS; Start 08/09/19 at 08:00; Status UNV Info (PHARMACY MONITORING -- do not chart) 1 each PRN DAILY PRN MC SEE COMMENTS; Start 08/09/19 at 08:00; Status UNV Daptomycin 430 mg/ Sodium Chloride 50 ml @ 100 mls/hr Q24H IV Last administered on 08/09/19at 12:35; Start 08/09/19 at 09:00; Stop 08/09/19 at 12:49; Status DC Sodium Chloride 100 meq/Potassium Chloride 40 meq/ Magnesium Sulfate 20 meq/Calcium Gluconate 15 meq/ Multivitamins 10 ml/Chromium/ Copper/Manganese/ Seleni/Zn 0.5 ml/ Insulin Human Regular 35 unit/ Total Parenteral Nutrition/Amino Acids/Dextrose/ Fat Emulsion Intravenous 1,400 ml @ 58.333 mls/ hr TPN CONT IV Last administered on 08/09/19at 21:26; Start 08/09/19 at 22:00; Stop 08/10/19 at 21:59; Status DC Daptomycin 430 mg/ Sodium Chloride 50 ml @ 100 mls/hr Q48H IV ; Start 08/11/19 at 09:00; Stop 08/10/19 at 11:55; Status DC Sodium Chloride 100 meq/Potassium Chloride 40 meq/ Magnesium Sulfate 20 meq/Calcium Gluconate 15 meq/ Multivitamins 10 ml/Chromium/ Copper/Manganese/ Seleni/Zn 0.5 ml/ Insulin Human Regular 35 unit/ Total Parenteral Nutrition/Amino Acids/Dextrose/ Fat Emulsion Intravenous 1,400 ml @ 58.333 mls/ hr TPN CONT IV Last administered on 08/10/19at 22:27; Start 08/10/19 at 22:00; Stop 08/11/19 at 21:59; Status DC Daptomycin 430 mg/ Sodium Chloride 50 ml @ 100 mls/hr Q24H IV Last administered on 08/12/19at 15:07; Start 08/10/19 at 13:00; Stop 08/13/19 at 13:15; Status DC Sodium Chloride 100 meq/Potassium Chloride 40 meq/ Magnesium Sulfate 20 meq/Calcium Gluconate 10 meq/ Multivitamins 10 ml/Chromium/ Copper/Manganese/ Seleni/Zn 0.5 ml/ Insulin Human Regular 35 unit/ Total Parenteral Nutrition/Amino Acids/Dextrose/ Fat Emulsion Intravenous 1,400 ml @ 58.333 mls/ hr TPN CONT IV Last administered on 08/12/19at 00:06; Start 08/11/19 at 22:00; Stop 08/12/19 at 21:59; Status DC Alteplase, Recombinant (Cathflo For Central Catheter Clearance) 1 mg 1X ONCE INT CAT Last administered on 08/12/19at 11:44; Start 08/12/19 at 10:45; Stop 08/12/19 at 10:46; Status DC Ondansetron HCl (Zofran) 4 mg PRN Q6HRS PRN IV NAUSEA/VOMITING; Start 08/15/19 at 07:00; Stop 08/16/19 at 06:59; Status DC Fentanyl Citrate (Fentanyl 2ml Vial) 25 mcg PRN Q5MIN PRN IV MILD PAIN 1-3; Start 08/15/19 at 07:00; Stop 08/16/19 at 06:59; Status DC Fentanyl Citrate (Fentanyl 2ml Vial) 50 mcg PRN Q5MIN PRN IV MODERATE TO SEVERE PAIN Last administered on 08/15/19at 10:17; Start 08/15/19 at 07:00; Stop 08/16/19 at 06:59; Status DC Ringer's Solution 1,000 ml @ 30 mls/hr Q24H IV ; Start 08/15/19 at 07:00; Stop 08/15/19 at 18:59; Status DC Lidocaine HCl (Xylocaine-Mpf 1% 2ml Vial) 2 ml PRN 1X PRN ID PRIOR TO IV START; Start 08/15/19 at 07:00; Stop 08/16/19 at 06:59; Status DC Prochlorperazine Edisylate (Compazine) 5 mg PACU PRN PRN IV NAUSEA, MRX1; Start 08/15/19 at 07:00; Stop 08/16/19 at 06:59; Status DC Sodium Acetate 50 meq/Potassium Acetate 55 meq/ Magnesium Sulfate 20 meq/Calcium Gluconate 10 meq/ Multivitamins 10 ml/Chromium/ Copper/Manganese/ Seleni/Zn 0.5 ml/ Insulin Human Regular 35 unit/ Total Parenteral Nutrition/Amino Acids/Dextrose/ Fat Emulsion Intravenous 1,400 ml @ 58.333 mls/ hr TPN CONT IV ; Start 08/12/19 at 22:00; Stop 08/12/19 at 14:15; Status DC Sodium Acetate 50 meq/Potassium Acetate 55 meq/ Magnesium Sulfate 20 meq/Calcium Gluconate 10 meq/ Multivitamins 10 ml/Chromium/ Copper/Manganese/ Seleni/Zn 0.5 ml/ Insulin Human Regular 35 unit/ Total Parenteral Nutrition/Amino Acids/Dextrose/ Fat Emulsion Intravenous 1,800 ml @ 75 mls/hr TPN CONT IV Last administered on 08/12/19at 22:38; Start 08/12/19 at 22:00; Stop 08/13/19 at 21:59; Status DC Sodium Chloride 1,000 ml @ 1,000 mls/hr Q1H PRN IV hypotension; Start 08/12/19 at 15:31; Stop 08/12/19 at 21:30; Status DC Diphenhydramine HCl (Benadryl) 25 mg 1X PRN PRN IV ITCHING; Start 08/12/19 at 15:45; Stop 08/13/19 at 15:44; Status DC Diphenhydramine HCl (Benadryl) 25 mg 1X PRN PRN IV ITCHING; Start 08/12/19 at 15:45; Stop 08/13/19 at 15:44; Status DC Sodium Chloride 1,000 ml @ 400 mls/hr Q2H30M PRN IV PATENCY; Start 08/12/19 at 15:31; Stop 08/13/19 at 03:30; Status DC Info (PHARMACY MONITORING -- do not chart) 1 each PRN DAILY PRN MC SEE COMMENTS; Start 08/12/19 at 15:45 Sodium Acetate 50 meq/Potassium Acetate 55 meq/ Magnesium Sulfate 20 meq/Calcium Gluconate 10 meq/ Multivitamins 10 ml/Chromium/ Copper/Manganese/ Seleni/Zn 0.5 ml/ Insulin Human Regular 35 unit/ Total Parenteral Nutrition/Amino Acids/Dextrose/ Fat Emulsion Intravenous 1,800 ml @ 75 mls/hr TPN CONT IV Last administered on 08/13/19at 22:03; Start 08/13/19 at 22:00; Stop 08/14/19 at 21:59; Status DC Daptomycin 430 mg/ Sodium Chloride 50 ml @ 100 mls/hr Q24H IV Last administered on 08/16/19at 14:32; Start 08/13/19 at 13:00 Heparin Sodium (Porcine) 1000 unit/Sodium Chloride 1,001 ml @ 1,001 mls/hr 1X ONCE IRR ; Start 08/15/19 at 06:00; Stop 08/15/19 at 06:59; Status DC Potassium Acetate 55 meq/Magnesium Sulfate 20 meq/ Calcium Gluconate 10 meq/ Multivitamins 10 ml/Chromium/ Copper/Manganese/ Seleni/Zn 0.5 ml/ Insulin Human Regular 35 unit/ Total Parenteral Nutrition/Amino Acids/Dextrose/ Fat Emulsion Intravenous 1,920 ml @ 80 mls/hr TPN CONT IV Last administered on 08/14/19at 22:10; Start 08/14/19 at 22:00; Stop 08/15/19 at 21:59; Status DC Dexamethasone Sodium Phosphate (Decadron) 4 mg STK-MED ONCE .ROUTE ; Start 08/15/19 at 10:56; Stop 08/15/19 at 10:57; Status DC Ondansetron HCl (Zofran) 4 mg STK-MED ONCE .ROUTE ; Start 08/15/19 at 10:56; Stop 08/15/19 at 10:57; Status DC Rocuronium [place] (Zemuron) 50 mg STK-MED ONCE .ROUTE ; Start 08/15/19 at 10:56; Stop 08/15/19 at 10:57; Status DC Fentanyl Citrate (Fentanyl 2ml Vial) 100 mcg STK-MED ONCE .ROUTE ; Start 08/15/19 at 10:56; Stop 08/15/19 at 10:57; Status DC Bupivacaine HCl/ Epinephrine Bitart (Sensorcain-Epi 0.5%-1:650602 Mpf) 30 ml STK-MED ONCE .ROUTE Last administered on 08/15/19at 12:01; Start 08/15/19 at 10:58; Stop 08/15/19 at 10:58; Status DC Cellulose (Surgicel Hemostat 2x14) 1 each STK-MED ONCE .ROUTE ; Start 08/15/19 at 10:58; Stop 08/15/19 at 10:59; Status DC Iohexol (Omnipaque 300 Mg/ml) 50 ml STK-MED ONCE .ROUTE ; Start 08/15/19 at 10:58; Stop 08/15/19 at 10:59; Status DC Cellulose (Surgicel Hemostat 4x8) 1 each STK-MED ONCE .ROUTE ; Start 08/15/19 at 10:58; Stop 08/15/19 at 10:59; Status DC Bisacodyl (Dulcolax Supp) 10 mg STK-MED ONCE .ROUTE ; Start 08/15/19 at 10:59; Stop 08/15/19 at 10:59; Status DC Heparin Sodium (Porcine) 1000 unit/Sodium Chloride 1,001 ml @ 1,001 mls/hr 1X ONCE IRR ; Start 08/15/19 at 12:00; Stop 08/15/19 at 12:59; Status DC Propofol 20 ml @ As Directed STK-MED ONCE IV ; Start 08/15/19 at 11:05; Stop 08/15/19 at 11:05; Status DC Sevoflurane (Ultane) 90 ml STK-MED ONCE IH ; Start 08/15/19 at 11:05; Stop 08/15/19 at 11:05; Status DC Sevoflurane (Ultane) 60 ml STK-MED ONCE IH ; Start 08/15/19 at 12:26; Stop 08/15/19 at 12:27; Status DC Propofol 20 ml @ As Directed STK-MED ONCE IV ; Start 08/15/19 at 12:26; Stop 08/15/19 at 12:27; Status DC Phenylephrine HCl (PHENYLEPHRINE in 0.9% NACL PF) 1 mg STK-MED ONCE IV ; Start 08/15/19 at 12:34; Stop 08/15/19 at 12:34; Status DC Heparin Sodium (Porcine) (Heparin Sodium) 5,000 unit Q12HR SQ Last administered on 08/16/19at 22:03; Start 08/15/19 at 21:00 Sodium Chloride (Normal Saline Flush) 3 ml QSHIFT PRN IV AFTER MEDS AND BLOOD DRAWS; Start 08/15/19 at 13:45 Naloxone HCl (Narcan) 0.4 mg PRN Q2MIN PRN IV SEE INSTRUCTIONS; Start 08/15/19 at 13:45 Sodium Chloride 1,000 ml @ 25 mls/hr Q24H IV Last administered on 08/16/19at 13:37; Start 08/15/19 at 13:37 Naloxone HCl (Narcan) 0.4 mg PRN Q2MIN PRN IV SEE INSTRUCTIONS; Start 08/15/19 at 14:30; Status UNV Sodium Chloride 1,000 ml @ 25 mls/hr Q24H IV ; Start 08/15/19 at 14:30; Status UNV Hydromorphone HCl 30 ml @ 0 mls/hr CONT PRN PRN IV PER PROTOCOL Last a dministered on 08/16/19at 12:27; Start 08/15/19 at 14:30 Potassium Acetate 55 meq/Magnesium Sulfate 20 meq/ Calcium Gluconate 10 meq/ Multivitamins 10 ml/Chromium/ Copper/Manganese/ Seleni/Zn 0.5 ml/ Insulin Human Regular 35 unit/ Total Parenteral Nutrition/Amino Acids/Dextrose/ Fat Emulsion Intravenous 1,920 ml @ 80 mls/hr TPN CONT IV Last administered on 08/15/19at 22:01; Start 08/15/19 at 22:00; Stop 08/16/19 at 21:59; Status DC Bumetanide (Bumex) 2 mg [id number] IV Last administered on 08/16/19at 16:45; Start 08/16/19 at 14:00 Meropenem 1 gm/ Sodium Chloride 100 ml @ 200 mls/hr Q8HRS IV Last administered on 08/17/19at 05:23; Start 08/16/19 at 14:00 Potassium Acetate 55 meq/Magnesium Sulfate 20 meq/ Calcium Gluconate 10 meq/ Multivitamins 10 ml/Chromium/ Copper/Manganese/ Seleni/Zn 0.5 ml/ Insulin Human Regular 35 unit/ Total Parenteral Nutrition/Amino Acids/Dextrose/ Fat Emulsion I ntravenous 1,920 ml @ 80 mls/hr TPN CONT IV Last administered on 08/16/19at 22:02; Start 08/16/19 at 22:00; Stop 08/17/19 at 21:59 Hydromorphone HCl (Dilaudid Standard CAST SHELL GRINDER) 12 mg STK-MED ONCE IV ; Start 08/15/19 at 14:35; Stop 08/16/19 at 13:53; Status DC Artificial Tears (Artificial Tears) 1 drop PRN Q15MIN PRN OU DRY EYE; Start 08/17/19 at 05:30 Active Scripts Active Reported Bisoprolol Fumarate 5 Mg Tablet 10 Mg PO DAILY Vitals/I & O Vital Sign - Last 24 Hours 08/16/19 08/16/19 08/16/19 08/16/19 09:00 09:24 10:00 10:49 Pulse 86 106 Resp 20 21 B/P (MAP) 92/65 (74) 108/87 (94) Pulse Ox 98 99 100 97 O2 Delivery Ventilator Ventilator Ventilator Ventilator 08/16/19 08/16/19 08/16/19 08/16/19 11:00 12:00 12:00 12:27 Temp 100.3 100.3 Pulse 92 140 Resp 18 26 19 B/P (MAP) 140/63 (88) 153/101 (118) Pulse Ox 98 99 98 O2 Delivery Ventilator Ventilator Mechanical Ventilator BiPAP/CPAP 08/16/19 08/16/19 08/16/19 08/16/19 13:00 13:00 13:13 14:00 Pulse 94 96 Resp 21 19 22 B/P (MAP) 154/81 (105) 117/73 (88) Pulse Ox 100 97 97 99 O2 Delivery Ventilator Ventilator Ventilator Ventilator 08/16/19 08/16/19 08/16/19 08/16/19 14:50 15:00 16:00 16:00 Pulse 126 96 Resp 17 18 B/P (MAP) 194/88 (123) 127/90 (102) Pulse Ox 99 96 98 O2 Delivery T-Tube Tracheal Collar Tracheal Collar Trach Collar O2 Flow Rate 8.0 08/16/19 08/16/19 08/16/19 08/16/19 17:00 18:00 19:00 19:50 Temp 99.5 99.5 Pulse 148 80 148 Resp 20 17 18 B/P (MAP) 184/87 (119) 94/47 (63) 98/57 (71) Pulse Ox 95 99 98 98 O2 Delivery Tracheal Collar Ventilator Ventilator Ventilator 08/16/19 08/16/19 08/16/19 08/16/19 20:00 20:00 21:00 22:00 Temp 99.6 99.6 Pulse 111 88 86 Resp 20 18 18 B/P (MAP) 118/63 (81) 94/47 (63) 86/45 (59) Pulse Ox 99 98 97 O2 Delivery Ventilator Trach Collar Ventilator Ventilator 08/16/19 08/17/19 08/17/19 08/17/19 23:00 00:00 00:00 00:13 Temp 99.2 99.2 Pulse 92 106 Resp 18 18 B/P (MAP) 83/43 (56) 137/85 (102) Pulse Ox 96 97 98 O2 Delivery Ventilator Trach Collar Ventilator Ventilator 08/17/19 08/17/19 08/17/19 08/17/19 01:00 02:00 03:00 03:19 Pulse 91 83 83 Resp 18 18 18 B/P (MAP) 107/56 (73) 95/52 (66) 105/52 (69) Pulse Ox 98 98 98 98 O2 Delivery Ventilator Ventilator Ventilator 08/17/19 08/17/19 08/17/19 08/17/19 04:00 04:00 05:00 06:00 Temp 100.6 100.6 Pulse 100 88 85 Resp 22 18 18 B/P (MAP) 91/53 (66) 113/56 (75) 118/59 (78) Pulse Ox 98 98 95 O2 Delivery Trach Collar Ventilator Ventilator Ventilator 08/17/19 08/17/19 08/17/19 08/17/19 07:00 07:57 08:00 08:00 Temp 99.3 99.3 Pulse 80 86 Resp 17 17 B/P (MAP) 98/46 (63) 140/86 (104) Pulse Ox 98 98 98 O2 Delivery Ventilator Ventilator Ventilator Mechanical Ventilator Intake and Output 08/16/19 08/16/19 08/17/19 14:59 22:59 06:59 Intake Total 100 ml 1565 ml 1640.5 ml Output Total 965 ml 1115 ml 985 ml Balance -865 ml 450 ml 655.5 ml Hemodynamically unstable?: No Is patient in severe pain?: No Is NPO status required?: Yes DAVIN LANDEROS MD Aug 17, 2019 08:34
[2019-08-17] MEDS: BUMETANIDE 1 MG/4 ML VIAL. IV SCH ×2 (08:42→14:53)
[2019-08-17] MEDS: MICAFUNGIN 100 MG in IV DEXTROSE 5% 100ML 100 ML IV SCH (08:43)
[2019-08-17] MEDS: HEPARIN for SUB-Q USE 5,000 UNIT/ML VIAL. SQ SCH ×2 (08:44→22:20)
--- NOTE | 2019-08-17 09:19 | PDOC ---
G I PROGRESS NOTE Subjective Awake, alert, on ventilator/trached. No new complaints. Appears in reasonably good spirits. Objective Hemoglobin down; no overt bleeding noted by staff. Physical Exam Lungs clear. RRR Abdomen somewhat distended, but softer since laparoscopy. Review of Relevant I have reviewed the following items kolby (where applicable) has been applied. Labs Laboratory Tests Test 08/15/19 13:40 08/15/19 18:04 08/16/19 00:57 08/16/19 07:00 Glucose (Fingerstick) 163 mg/dL (70-99) 208 mg/dL (70-99) 208 mg/dL (70-99) White Blood Count 6.3 x10^3/uL (4.0-11.0) Red Blood Count 4.12 x10^6/uL (3.50-5.40) Hemoglobin 12.1 g/dL (12.0-15.5) Hematocrit 37.5 % (36.0-47.0) Mean Corpuscular Volume 91 fL (79-100) Mean Corpuscular Hemoglobin 29 pg (25-35) Mean Corpuscular Hemoglobin Concent 32 g/dL (31-37) Red Cell Distribution Width 18.3 % (11.5-14.5) Platelet Count 267 x10^3/uL (140-400) Neutrophils (%) (Auto) 74 % (31-73) Lymphocytes (%) (Auto) 20 % (24-48) Monocytes (%) (Auto) 5 % (0-9) Eosinophils (%) (Auto) 0 % (0-3) Basophils (%) (Auto) 0 % (0-3) Neutrophils # (Auto) 4.7 x10^3/uL (1.8-7.7) Lymphocytes # (Auto) 1.3 x10^3/uL (1.0-4.8) Monocytes # (Auto) 0.3 x10^3/uL (0.0-1.1) Eosinophils # (Auto) 0.0 x10^3/uL (0.0-0.7) Basophils # (Auto) 0.0 x10^3/uL (0.0-0.2) Sodium Level 150 mmol/L (136-145) Potassium Level 3.9 mmol/L (3.5-5.1) Chloride Level 111 mmol/L (98-107) Carbon Dioxide Level 28 mmol/L (21-32) Anion Gap 11 (6-14) Blood Urea Nitrogen 63 mg/dL (7-20) Creatinine 0.9 mg/dL (0.6-1.0) Estimated GFR (Cockcroft-Gault) 66.5 Glucose Level 162 mg/dL (70-99) Calcium Level 8.8 mg/dL (8.5-10.1) Phosphorus Level 4.7 mg/dL (2.6-4.7) Magnesium Level 2.0 mg/dL (1.8-2.4) Iron Level 23 ug/dL (50-170) Total Iron Binding Capacity 76 ug/dL (250-450) Iron Saturation 30 % (15-34) Test 08/16/19 12:08 08/16/19 18:44 08/16/19 23:40 08/17/19 06:10 Glucose (Fingerstick) 148 mg/dL (70-99) 116 mg/dL (70-99) 94 mg/dL (70-99) White Blood Count 10.4 x10^3/uL (4.0-11.0) Red Blood Count 2.51 x10^6/uL (3.50-5.40) Hemoglobin 7.4 g/dL (12.0-15.5) Hematocrit 22.9 % (36.0-47.0) Mean Corpuscular Volume 91 fL (79-100) Mean Corpuscular Hemoglobin 29 pg (25-35) Mean Corpuscular Hemoglobin Concent 32 g/dL (31-37) Red Cell Distribution Width 18.4 % (11.5-14.5) Platelet Count 439 x10^3/uL (140-400) Sodium Level 151 mmol/L (136-145) Potassium Level 3.6 mmol/L (3.5-5.1) Chloride Level 114 mmol/L (98-107) Carbon Dioxide Level 29 mmol/L (21-32) Anion Gap 8 (6-14) Blood Urea Nitrogen 58 mg/dL (7-20) Creatinine 1.0 mg/dL (0.6-1.0) Estimated GFR (Cockcroft-Gault) 58.9 Glucose Level 104 mg/dL (70-99) Calcium Level 8.2 mg/dL (8.5-10.1) Test 08/17/19 06:14 08/17/19 08:00 Glucose (Fingerstick) 87 mg/dL (70-99) White Blood Count 14.5 x10^3/uL (4.0-11.0) Red Blood Count 2.89 x10^6/uL (3.50-5.40) Hemoglobin 8.5 g/dL (12.0-15.5) Hematocrit 26.9 % (36.0-47.0) Mean Corpuscular Volume 93 fL (79-100) Mean Corpuscular Hemoglobin 29 pg (25-35) Mean Corpuscular Hemoglobin Concent 32 g/dL (31-37) Red Cell Distribution Width 18.5 % (11.5-14.5) Platelet Count 446 x10^3/uL (140-400) Laboratory Tests Test 08/16/19 12:08 08/16/19 18:44 08/16/19 23:40 08/17/19 06:10 Glucose (Fingerstick) 148 mg/dL (70-99) 116 mg/dL (70-99) 94 mg/dL (70-99) White Blood Count 10.4 x10^3/uL (4.0-11.0) Red Blood Count 2.51 x10^6/uL (3.50-5.40) Hemoglobin 7.4 g/dL (12.0-15.5) Hematocrit 22.9 % (36.0-47.0) Mean Corpuscular Volume 91 fL (79-100) Mean Corpuscular Hemoglobin 29 pg (25-35) Mean Corpuscular Hemoglobin Concent 32 g/dL (31-37) Red Cell Distribution Width 18.4 % (11.5-14.5) Platelet Count 439 x10^3/uL (140-400) Sodium Level 151 mmol/L (136-145) Potassium Level 3.6 mmol/L (3.5-5.1) Chloride Level 114 mmol/L (98-107) Carbon Dioxide Level 29 mmol/L (21-32) Anion Gap 8 (6-14) Blood Urea Nitrogen 58 mg/dL (7-20) Creatinine 1.0 mg/dL (0.6-1.0) Estimated GFR (Cockcroft-Gault) 58.9 Glucose Level 104 mg/dL (70-99) Calcium Level 8.2 mg/dL (8.5-10.1) Test 08/17/19 06:14 08/17/19 08:00 Glucose (Fingerstick) 87 mg/dL (70-99) White Blood Count 14.5 x10^3/uL (4.0-11.0) Red Blood Count 2.89 x10^6/uL (3.50-5.40) Hemoglobin 8.5 g/dL (12.0-15.5) Hematocrit 26.9 % (36.0-47.0) Mean Corpuscular Volume 93 fL (79-100) Mean Corpuscular Hemoglobin 29 pg (25-35) Mean Corpuscular Hemoglobin Concent 32 g/dL (31-37) Red Cell Distribution Width 18.5 % (11.5-14.5) Platelet Count 446 x10^3/uL (140-400) Microbiology 08/03/19 Aerobic and Anaerobic Culture - Final, Complete 08/03/19 Anaerobic Culture Result 1 (ALEXANDRA) - Final, Complete 08/03/19 Aerobic Culture - Final, Complete 08/03/19 Aerobic Culture Result 1 (ALEXANDRA) - Final, Complete 08/03/19 Gram Stain - Final, Complete 08/03/19 Gram Stain Result 1 (ALEXANDRA) - Final, Complete 08/03/19 Gram Stain Result 2 (ALEXANDRA) - Final, Complete 08/02/19 Blood Culture - Final, Complete NO GROWTH AFTER 5 DAYS 07/31/19 Urine Culture - Final, Complete 07/31/19 Urine Culture Result 1 (ALEXANDRA) - Final, Complete Medications Current Medications Sodium Chloride 1,000 ml @ 1,000 mls/hr Q1H IV Last administered on 07/04/19at 03:00; Start 07/04/19 at 03:00; Stop 07/04/19 at 03:59; Status DC Ondansetron HCl (Zofran) 4 mg 1X ONCE IVP Last administered on 07/04/19at 03:27; Start 07/04/19 at 03:00; Stop 07/04/19 at 03:01; Status DC Morphine Sulfate (Morphine Sulfate) 4 mg 1X ONCE IV ; Start 07/04/19 at 03:00; Stop 07/04/19 at 03:01; Status Cancel Ketorolac Tromethamine (Toradol 30mg Vial) 30 mg 1X ONCE IV Last administered on 07/04/19at 02:54; Start 07/04/19 at 03:00; Stop 07/04/19 at 03:01; Status DC Fentanyl Citrate (Fentanyl 2ml Vial) 25 mcg 1X ONCE IVP Last administered on 07/04/19at 03:23; Start 07/04/19 at 03:30; Stop 07/04/19 at 03:31; Status DC Fentanyl Citrate (Fentanyl 2ml Vial) 100 mcg STK-MED ONCE .ROUTE ; Start 07/03 at 03:18; Stop 07/04/19 at 03:18; Status DC Iohexol (Omnipaque 350 Mg/ml) 90 ml 1X ONCE IV Last administered on 07/04/19at 03:25; Start 07/04/19 at 03:30; Stop 07/04/19 at 03:31; Status DC Info (CONTRAST GIVEN -- Rx MONITORING) 1 each PRN DAILY PRN MC SEE COMMENTS; Start 07/04/19 at 03:30; Stop 07/06/19 at 03:29; Status DC Hydromorphone HCl (Dilaudid) 0.5 mg 1X ONCE IV Last administered on 07/04/19at 03:55; Start 07/04/19 at 04:30; Stop 07/04/19 at 04:32; Status DC Ondansetron HCl (Zofran) 4 mg PRN Q8HRS PRN IV NAUSEA/VOMITING 1ST CHOICE; Start 07/04/19 at 05:00; Stop 07/04/19 at 09:27; Status DC Morphine Sulfate (Morphine Sulfate) 2 mg PRN Q2HR PRN IV SEVERE PAIN 7-10 Last administered on 07/05/19at 12:26; Start 07/04/19 at 05:00; Stop 07/05/19 at 14:15; Status DC Sodium Chloride 1,000 ml @ 125 mls/hr Q8H IV Last administered on 07/04/19at 20:56; Start 07/04/19 at 05:00; Stop 07/05/19 at 04:59; Status DC Hydromorphone HCl (Dilaudid) 0.5 mg PRN Q3HRS PRN IV SEVERE PAIN 7-10 Last administered on 07/05/19at 10:06; Start 07/04/19 at 05:00; Stop 07/05/19 at 12:01; Status DC Piperacillin Sod/ Tazobactam Sod 4.5 gm/Sodium Chloride 100 ml @ 200 mls/hr 1X ONCE IV Last administered on 07/04/19at 05:44; Start 07/04/19 at 06:00; Stop 07/04/19 at 06:29; Status DC Ondansetron HCl (Zofran) 4 mg PRN Q4HRS PRN IV NAUSEA/VOMITING 1ST CHOICE Last administered on 08/12/19at 11:01; Start 07/04/19 at 09:30 Insulin Human Lispro (HumaLOG) 0-9 UNITS Q6HRS SQ Last administered on 08/16/19at 08:42; Start 07/04/19 at 09:30 Dextrose (Dextrose 50%-Water Syringe) 12.5 gm PRN Q15MIN PRN IV SEE COMMENTS; Start 07/04/19 at 09:30 Pantoprazole Sodium (PROTONIX VIAL for IV PUSH) 40 mg DAILYAC IVP Last administered on 08/17/19at 07:39; Start 07/04/19 at 11:30 Prochlorperazine Edisylate (Compazine) 10 mg PRN Q6HRS PRN IV NAUSEA/VOMITING, 2nd CHOICE Last administered on 08/17/19at 07:40; Start 07/04/19 at 17:45 Atenolol (Tenormin) 100 mg DAILY PO ; Start 07/05/19 at 09:00; Stop 07/04/19 at 20:08; Status DC Metoprolol Tartrate (Lopressor Vial) 2.5 mg Q6HRS IVP Last administered on 07/05/19at 05:51; Start 07/04/19 at 20:15; Stop 07/05/19 at 10:02; Status DC Metoprolol Tartrate (Lopressor Vial) 5 mg Q6HRS IVP Last administered on 07/14/19at 00:12; Start 07/05/19 at 10:15; Stop 07/16/19 at 08:48; Status DC Hydromorphone HCl (Dilaudid) 1 mg PRN Q3HRS PRN IV SEVERE PAIN 7-10 Last administered on 07/11/19at 05:13; Start 07/05/19 at 12:00; Stop 07/19/19 at 00:25; Status DC Lidocaine HCl (Buffered Lidocaine 1%) 3 ml STK-MED ONCE .ROUTE ; Start 07/05/19 at 12:55; Stop 07/05/19 at 12:56; Status DC Albumin Human 500 ml @ 125 mls/hr 1X ONCE IV Last administered on 07/05/19at 14:33; Start 07/05/19 at 14:30; Stop 07/05/19 at 18:32; Status DC Norepinephrine Bitartrate 8 mg/ Dextrose 258 ml @ 17.299 mls/ hr CONT PRN IV PER PROTOCOL Last administered on 08/02/19at 12:48; Start 07/05/19 at 15:30; Stop 08/05/19 at 09:19; Status DC Sodium Chloride 1,000 ml @ 125 mls/hr Q8H IV Last administered on 07/05/19at 21:04; Start 07/05/19 at 16:00; Stop 07/06/19 at 02:42; Status DC Albumin Human 500 ml @ 125 mls/hr PRN BID PRN IV After every 2L NSS & BP < 90mm Last administered on 07/20/19at 14:21; Start 07/05/19 at 16:00 Iohexol (Omnipaque 300 Mg/ml) 60 ml 1X ONCE IV Last administered on 07/05/19at 17:20; Start 07/05/19 at 17:00; Stop 07/05/19 at 17:01; Status DC Info (CONTRAST GIVEN -- Rx MONITORING) 1 each PRN DAILY PRN MC SEE COMMENTS; Start 07/05/19 at 17:00; Stop 07/07/19 at 16:59; Status DC Meropenem 1 gm/ Sodium Chloride 100 ml @ 200 mls/hr Q8HRS IV Last administered on 07/06/19at 05:45; Start 07/05/19 at 20:00; Stop 07/06/19 at 08:48; Status DC Furosemide (Lasix) 40 mg 1X ONCE IVP Last administered on 07/05/19at 22:12; Start 07/05/19 at 22:30; Stop 07/05/19 at 22:31; Status DC Calcium Chloride 1000 mg/Sodium Chloride 110 ml @ 220 mls/hr 1X ONCE IV Last administered on 07/05/19at 22:11; Start 07/05/19 at 22:30; Stop 07/05/19 at 22:59; Status DC Albuterol Sulfate (Ventolin Neb Soln) 2.5 mg 1X ONCE NEB Last administered on 07/06/19at 00:56; Start 07/05/19 at 22:30; Stop 07/05/19 at 22:31; Status DC Insulin Human Regular (HumuLIN R VIAL) 5 unit 1X ONCE IV Last administered on 07/05/19at 22:14; Start 07/05/19 at 22:30; Stop 07/05/19 at 22:31; Status DC Magnesium Sulfate 50 ml @ 25 mls/hr 1X ONCE IV Last administered on 07/06/19at 02:57; Start 07/06/19 at 03:00; Stop 07/06/19 at 04:59; Status DC Calcium Gluconate 1000 mg/Sodium Chloride 110 ml @ 220 mls/hr 1X ONCE IV Last administered on 07/06/19at 02:46; Start 07/06/19 at 03:00; Stop 07/06/19 at 03:29; Status DC Sodium Chloride 1,000 ml @ 200 mls/hr Q5H IV Last administered on 07/06/19at 02:46; Start 07/06/19 at 03:00; Stop 07/06/19 at 10:21; Status DC Calcium Gluconate 1000 mg/Sodium Chloride 110 ml @ 220 mls/hr 1X ONCE IV Last administered on 07/06/19at 03:21; Start 07/06/19 at 03:30; Stop 07/06/19 at 03:59; Status DC Sodium Bicarbonate 50 meq/Sodium Chloride 1,050 ml @ 75 mls/hr Q14H IV Last administered on 07/10/19at 21:10; Start 07/06/19 at 07:30; Stop 07/11/19 at 10:28; Status DC Calcium Gluconate 2000 mg/Sodium Chloride 120 ml @ 220 mls/hr 1X ONCE IV Last administered on 07/06/19at 09:05; Start 07/06/19 at 07:30; Stop 07/06/19 at 08:02; Status DC Lidocaine HCl (Xylocaine-Mpf 1% 2ml Vial) 2 ml STK-MED ONCE .ROUTE ; Start 07/06/19 at 08:47; Stop 07/06/19 at 08:47; Status DC Meropenem 500 mg/ Sodium Chloride 50 ml @ 100 mls/hr Q12HR IV Last admini stered on 07/11/19at 21:01; Start 07/06/19 at 18:00; Stop 07/12/19 at 07:58; Status DC Lidocaine HCl (Buffered Lidocaine 1%) 3 ml STK-MED ONCE .ROUTE ; Start 07/06/19 at 09:46; Stop 07/06/19 at 09:46; Status DC Lidocaine HCl (Buffered Lidocaine 1%) 6 ml 1X ONCE INJ Last administered on 07/06/19at 10:26; Start 07/06/19 at 10:15; Stop 07/06/19 at 10:16; Status DC Info (Tpn Per Pharmacy) 1 each PRN DAILY PRN MC SEE COMMENTS Last administered on 08/16/19at 12:51; Start 07/06/19 at 12:00 Sodium Chloride 1,000 ml @ 1,000 mls/hr Q1H PRN IV hypotension; Start 07/06/19 at 12:07; Stop 07/06/19 at 18:06; Status DC Diphenhydramine HCl (Benadryl) 25 mg 1X PRN PRN IV ITCHING; Start 07/06/19 at 12:15; Stop 07/07/19 at 12:14; Status DC Diphenhydramine HCl (Benadryl) 25 mg 1X PRN PRN IV ITCHING; Start 07/06/19 at 12:15; Stop 07/07/19 at 12:14; Status DC Sodium Chloride 1,000 ml @ 400 mls/hr Q2H30M PRN IV PATENCY; Start 07/06/19 at 12:07; Stop 07/07/19 at 00:06; Status DC Info (PHARMACY MONITORING -- do not chart) 1 each PRN DAILY PRN MC SEE COMMENTS; Start 07/06/19 at 12:15; Stop 07/08/19 at 08:13; Status DC Sodium Chloride 90 meq/Calcium Gluconate 10 meq/ Multivitamins 10 ml/Chromium/ Copper/Manganese/ Seleni/Zn 1 ml/ Total Parenteral Nutrition/Amino Acids/Dextro se/ Fat Emulsion Intravenous 55.005 ml @ 2.292 mls/hr TPN CONT IV ; Start 07/06/19 at 22:00; Stop 07/06/19 at 12:33; Status DC Info (Tpn Per Pharmacy) 1 each PRN DAILY PRN MC SEE COMMENTS; Start 07/06/19 at 12:30; Status UNV Sodium Chloride 90 meq/Calcium Gluconate 10 meq/ Multivitamins 10 ml/Chromium/ Copper/Manganese/ Seleni/Zn 0.5 ml/ Total Parenteral Nutrition/Amino Acids/ Dextrose/ Fat Emulsion Intravenous 1,512 ml @ 63 mls/hr TPN CONT IV Last administered on 07/06/19at 22:06; Start 07/06/19 at 22:00; Stop 07/07/19 at 21:59; Status DC Calcium Carbonate/ Glycine (Tums) 500 mg PRN AFTMEALHC PRN PO INDIGESTION; Start 07/06/19 at 17:45 Calcium Gluconate (Calcium Gluconate) 2,000 mg 1X ONCE IVP Last administered on 07/07/19at 02:19; Start 07/07/19 at 02:15; Stop 07/07/19 at 02:16; Status DC Calcium Chloride 3000 mg/Sodium Chloride 1,030 ml @ 50 mls/hr [id number] IV Last administered on 07/09/19at 02:17; Start 07/07/19 at 08:00; Stop 07/09/19 at 15:23; Status DC Lorazepam (Ativan Inj) 1 mg PRN Q4HRS PRN IVP ANXIETY / AGITATION, 2nd choic Last administered on 08/05/19at 03:51; Start 07/07/19 at 09:00; Stop 08/05/19 at 09:19; Status DC Sodium Chloride 1,000 ml @ 1,000 mls/hr Q1H PRN IV hypotension; Start 07/07/19 at 08:56; Stop 07/07/19 at 14:55; Status DC Albumin Human 200 ml @ 200 mls/hr 1X PRN PRN IV Hypotension; Start 07/07/19 at 09:00; Stop 07/07/19 at 14:59; Status DC Diphenhydramine HCl (Benadryl) 25 mg 1X PRN PRN IV ITCHING; Start 07/07/19 at 09:00; Stop 07/08/19 at 08:59; Status DC Diphenhydramine HCl (Benadryl) 25 mg 1X PRN PRN IV ITCHING; Start 07/07/19 at 09:00; Stop 07/08/19 at 08:59; Status DC Sodium Chloride 1,000 ml @ 400 mls/hr Q2H30M PRN IV PATENCY; Start 07/07/19 at 08:56; Stop 07/07/19 at 20:55; Status DC Info (PHARMACY MONITORING -- do not chart) 1 each PRN DAILY PRN MC SEE COMMENTS; Start 07/07/19 at 09:00; Status UNV Info (PHARMACY MONITORING -- do not chart) 1 each PRN DAILY PRN MC SEE COMMENTS; Start 07/07/19 at 09:00; Stop 07/08/19 at 08:13; Status DC Digoxin (Lanoxin) 500 mcg 1X ONCE IV Last administered on 07/07/19at 10:04; Start 07/07/19 at 10:00; Stop 07/07/19 at 10:01; Status DC Digoxin (Lanoxin) 125 mcg 1X ONCE IV Last administered on 07/07/19at 17:10; Start 07/07/19 at 18:00; Stop 07/07/19 at 18:01; Status DC Magnesium Sulfate 100 ml @ 25 mls/hr 1X ONCE IV Last administered on 07/07/19at 12:48; Start 07/07/19 at 13:00; Stop 07/07/19 at 16:59; Status DC Sodium Chloride 90 meq/Magnesium Sulfate 10 meq/ Calcium Gluconate 20 meq/ Multivitamins 10 ml/Chromium/ Copper/Manganese/ Seleni/Zn 0.5 ml/ Total Parenteral Nutrition/Amino Acids/Dextrose/ Fat Emulsion Intravenous 1,512 ml @ 63 mls/hr TPN CONT IV Last administered on 07/07/19at 22:25; Start 07/07/19 at 22:00; Stop 07/08/19 at 21:59; Status DC Sodium Chloride 1,000 ml @ 1,000 mls/hr Q1H PRN IV hypotension; Start 07/08/19 at 08:05; Stop 07/08/19 at 14:04; Status DC Albumin Human 200 ml @ 200 mls/hr 1X ONCE IV Last administered on 07/08/19at 08:57; Start 07/08/19 at 08:15; Stop 07/08/19 at 09:14; Status DC Diphenhydramine HCl (Benadryl) 25 mg 1X PRN PRN IV ITCHING; Start 07/08/19 at 08:15; Stop 07/09/19 at 08:14; Status DC Diphenhydramine HCl (Benadryl) 25 mg 1X PRN PRN IV ITCHING; Start 07/08/19 at 08:15; Stop 07/09/19 at 08:14; Status DC Sodium Chloride 1,000 ml @ 400 mls/hr Q2H30M PRN IV PATENCY; Start 07/08/19 at 08:05; Stop 07/08/19 at 20:04; Status DC Info (PHARMACY MONITORING -- do not chart) 1 each PRN DAILY PRN MC SEE COMMENTS; Start 07/08/19 at 08:15; Stop 07/12/19 at 07:57; Status DC Sodium Chloride 90 meq/Potassium Chloride 15 meq/ Potassium Phosphate 10 mmol/ Magnesium Sulfate 10 meq/Calcium Gluconate 20 meq/ Multivitamins 10 ml/Chromium/ Copper/Manganese/ Seleni/Zn 0.5 ml/ Total Parenteral Nutrition/Amino Acids/Dextrose/ Fat Emulsion Intravenous 1,512 ml @ 63 mls/hr TPN CONT IV Last administered on 07/08/19at 21:01; Start 07/08/19 at 22:00; Stop 07/09/19 at 21:59; Status DC Potassium Chloride/Water 100 ml @ 100 mls/hr 1X ONCE IV Last administered on 07/08/19at 14:09; Start 07/08/19 at 14:00; Stop 07/08/19 at 14:59; Status DC Benzocaine (Hurricaine One) 1 spray 1X ONCE MM Last administered on 07/08/19at 16:38; Start 07/08/19 at 14:30; Stop 07/08/19 at 14:31; Status DC Lidocaine HCl (Glydo (Lidocaine) Jelly) 1 ramu 1X ONCE MM Last administered on 07/08/19at 16:38; Start 07/08/19 at 14:30; Stop 07/08/19 at 14:31; Status DC Linezolid/Dextrose 300 ml @ 300 mls/hr Q12HR IV Last administered on 07/14/19at 21:04; Start 07/08/19 at 20:00; Stop 07/15/19 at 07:50; Status DC Acetaminophen (Tylenol) 650 mg PRN Q6HRS PRN PO MILD PAIN / TEMP; Start 07/09/19 at 03:30; Stop 07/09/19 at 03:36; Status DC Acetaminophen (Tylenol) 650 mg PRN Q6HRS PRN PEG MILD PAIN / TEMP Last administered on 08/04/19at 19:56; Start 07/09/19 at 03:36 Sodium Chloride 1,000 ml @ 1,000 mls/hr Q1H PRN IV hypotension; Start 07/09/19 at 07:50; Stop 07/09/19 at 13:49; Status DC Albumin Human 200 ml @ 200 mls/hr 1X PRN PRN IV Hypotension; Start 07/09/19 at 08:00; Stop 07/09/19 at 13:59; Status DC Sodium Chloride (Normal Saline Flush) 10 ml 1X PRN PRN IV AP catheter pack; Start 07/09/19 at 08:00; Stop 07/10/19 at 07:59; Status DC Sodium Chloride (Normal Saline Flush) 10 ml 1X PRN PRN IV MARKER HAND catheter pack; Start 07/09/19 at 08:00; Stop 07/10/19 at 07:59; Status DC Sodium Chloride 1,000 ml @ 400 mls/hr Q2H30M PRN IV PATENCY; Start 07/09/19 at 07:50; Stop 07/09/19 at 19:49; Status DC Info (PHARMACY MONITORING -- do not chart) 1 each PRN DAILY PRN MC SEE COMMENTS; Start 07/09/19 at 08:00; Status UNV Info (PHARMACY MONITORING -- do not chart) 1 each PRN DAILY PRN MC SEE COMMENTS; Start 07/09/19 at 08:00; Stop 07/11/19 at 08:25; Status DC Sodium Chloride 90 meq/Potassium Chloride 15 meq/ Potassium Phosphate 10 mmol/ Magnesium Sulfate 10 meq/Calcium Gluconate 20 meq/ Multivitamins 10 ml/Chromium/ Copper/Manganese/ Seleni/Zn 0.5 ml/ Total Parenteral Nutrition/Amino Acids/Dextrose/ Fat Emulsion Intravenous 1,512 ml @ 63 mls/hr TPN CONT IV Last administered on 07/09/19at 20:57; Start 07/09/19 at 22:00; Stop 07/10/19 at 21:59; Status DC Sodium Chloride 90 meq/Potassium Chloride 15 meq/ Potassium Phosphate 15 mmol/ Magnesium Sulfate 10 meq/Calcium Gluconate 20 meq/ Multivitamins 10 ml/Chromium/ Copper/Manganese/ Seleni/Zn 0.5 ml/ Total Parenteral Nutrition/Amino Acids/Dext amarilis/ Fat Emulsion Intravenous 1,512 ml @ 63 mls/hr TPN CONT IV ; Start 07/10/19 at 22:00; Stop 07/10/19 at 14:16; Status DC Sodium Chloride 90 meq/Potassium Chloride 15 meq/ Potassium Phosphate 15 mmol/ Magnesium Sulfate 10 meq/Calcium Gluconate 20 meq/ Multivitamins 10 ml/Chromium/ Copper/Manganese/ Seleni/Zn 0.5 ml/ Total Parenteral Nutrition/Amino Acids/Dextrose/ Fat Emulsion Intravenous 1,200 ml @ 50 mls/hr TPN CONT IV ; Start 07/10/19 at 22:00; Stop 07/10/19 at 14:17; Status DC Sodium Chloride 90 meq/Potassium Chloride 15 meq/ Potassium Phosphate 10 mmol/ Magnesium Sulfate 10 meq/Calcium Gluconate 20 meq/ Multivitamins 10 ml/Chromium/ Copper/Manganese/ Seleni/Zn 0.5 ml/ Total Parenteral Nutrition/Amino Acids/Dextrose/ Fat Emulsion Intravenous 1,200 ml @ 50 mls/hr TPN CONT IV Last administered on 07/10/19at 23:29; Start 07/10/19 at 22:00; Stop 07/11/19 at 21:59; Status DC Sodium Chloride 1,000 ml @ 1,000 mls/hr Q1H PRN IV hypotension; Start 07/11/19 at 07:28; Stop 07/11/19 at 13:27; Status DC Albumin Human 200 ml @ 200 mls/hr 1X ONCE IV Last administered on 07/11/19at 08:51; Start 07/11/19 at 07:30; Stop 07/11/19 at 08:29; Status DC Diphenhydramine HCl (Benadryl) 25 mg 1X PRN PRN IV ITCHING; Start 07/11/19 at 07:30; Stop 07/12/19 at 07:29; Status DC Diphenhydramine HCl (Benadryl) 25 mg 1X PRN PRN IV ITCHING; Start 07/11/19 at 07:30; Stop 07/12/19 at 07:29; Status DC Sodium Chloride 1,000 ml @ 400 mls/hr Q2H30M PRN IV PATENCY; Start 07/11/19 at 07:28; Stop 07/11/19 at 19:27; Status DC Info (PHARMACY MONITORING -- do not chart) 1 each PRN DAILY PRN MC SEE COMMENTS; Start 07/11/19 at 07:30; Stop 07/22/19 at 13:01; Status DC Metronidazole 100 ml @ 100 mls/hr Q6HRS IV Last administered on 07/27/19at 06:26; Start 07/11/19 at 08:30; Stop 07/27/19 at 09:58; Status DC Micafungin Sodium 100 mg/Dextrose 100 ml @ 100 mls/hr Q24H IV Last administered on 08/17/19at 08:43; Start 07/11/19 at 09:00 Propofol 0 ml @ As Directed STK-MED ONCE IV ; Start 07/11/19 at 07:53; Stop 07/11/19 at 07:53; Status DC Etomidate (Amidate) 20 mg STK-MED ONCE IV ; Start 07/11/19 at 07:53; Stop 07/11/19 at 07:54; Status DC Midazolam HCl (Versed) 5 mg STK-MED ONCE .ROUTE ; Start 07/11/19 at 07:57; Stop 07/11/19 at 07:57; Status DC Fentanyl Citrate 30 ml @ 0 mls/hr CONT PRN IV SEE PROTOCOL Last administered on 08/05/19at 06:12; Start 07/11/19 at 08:15; Stop 08/05/19 at 09:19; Status DC Artificial Tears (Artificial Tears) 1 drop PRN Q1HR PRN OU DRY EYE, 1st choice; Start 07/11/19 at 08:15; Stop 08/17/19 at 05:31; Status DC Midazolam HCl 50 mg/Sodium Chloride 50 ml @ 0 mls/hr CONT PRN IV SEE PROTOCOL Last administered on 07/14/19at 22:39; Start 07/11/19 at 08:15; Stop 07/16/19 at 15:59; Status DC Etomidate (Amidate) 8 mg 1X ONCE IV Last administered on 07/11/19at 08:33; S tart 07/11/19 at 08:30; Stop 07/11/19 at 08:31; Status DC Succinylcholine Chloride (Anectine) 120 mg 1X ONCE IV Last administered on 07/11/19at 08:34; Start 07/11/19 at 08:30; Stop 07/11/19 at 08:31; Status DC Midazolam HCl (Versed) 5 mg 1X ONCE IV ; Start 07/11/19 at 08:30; Stop 07/11/19 at 08:31; Status DC Potassium Chloride 15 meq/ Bicarbonate Dialysis Soln w/ out KCl 5,007.5 ml @ 1,000 mls/ hr Q5H1M IV Last administered on 07/12/19at 11:11; Start 07/11/19 at 12:00; Stop 07/12/19 at 11:15; Status DC Potassium Chloride 15 meq/ Bicarbonate Dialysis Soln w/ out KCl 5,007.5 ml @ 1,000 mls/ hr Q5H1M IV Last administered on 07/12/19at 11:12; Start 07/11/19 at 12:00; Stop 07/12/19 at 11:17; Status DC Potassium Chloride 15 meq/ Bicarbonate Dialysis Soln w/ out KCl 5,007.5 ml @ 1,000 mls/ hr Q5H1M IV Last administered on 07/12/19at 11:11; Start 07/11/19 at 12:00; Stop 07/12/19 at 11:19; Status DC Sodium Chloride 90 meq/Potassium Chloride 15 meq/ Potassium Phosphate 10 mmol/ Magnesium Sulfate 10 meq/Calcium Gluconate 20 meq/ Multivitamins 10 ml/Chromium/ Copper/Manganese/ Seleni/Zn 0.5 ml/ Total Parenteral Nutrition/Amino Acids/Dex trose/ Fat Emulsion Intravenous 1,400 ml @ 58.333 mls/ hr TPN CONT IV Last administered on 07/11/19at 21:42; Start 07/11/19 at 22:00; Stop 07/12/19 at 21:59; Status DC Heparin Sodium (Porcine) (Heparin Sodium) 5,000 unit Q8HRS SQ Last administered on 07/16/19at 05:55; Start 07/11/19 at 15:00; Stop 07/16/19 at 13:28; Status DC Meropenem 500 mg/ Sodium Chloride 50 ml @ 100 mls/hr Q6HRS IV Last administered on 07/13/19at 06:00; Start 07/12/19 at 09:00; Stop 07/13/19 at 07:29; Status DC Potassium Phosphate 20 mmol/ Sodium Chloride 106.6667 ml @ 51.667 m... 1X ONCE IV Last administered on 07/12/19at 11:22; Start 07/12/19 at 10:15; Stop 07/12/19 at 12:18; Status DC Acetaminophen (Tylenol Supp) 650 mg PRN Q6HRS PRN [place] MILD PAIN / TEMP > 100.3'F Last administered on 08/15/19at 00:32; Start 07/12/19 at 10:30 Potassium Chloride/Water 100 ml @ 100 mls/hr Q1H IV Last administered on at 12:12; Start 07/12/19 at 11:00; Stop 07/12/19 at 12:59; Status DC Potassium Chloride 20 meq/ Bicarbonate Dialysis Soln w/ out KCl 5,010 ml @ 1,000 mls/hr Q5H1M IV Last administered on 07/13/19at 08:48; Start 07/12/19 at 12:00; Stop 07/13/19 at 13:03; Status DC Potassium Chloride 20 meq/ Bicarbonate Dialysis Soln w/ out KCl 5,010 ml @ 1,000 mls/hr Q5H1M IV Last administered on 07/17/19at 14:52; Start 07/12/19 at 11:30; Stop 07/17/19 at 19:59; Status DC Potassium Chloride 20 meq/ Bicarbonate Dialysis Soln w/ out KCl 5,010 ml @ 1,000 mls/hr Q5H1M IV Last administered on 07/17/19at 14:53; Start 07/12/19 at 11:30; Stop 07/17/19 at 19:59; Status DC Sodium Chloride 90 meq/Potassium Chloride 15 meq/ Potassium Phosphate 15 mmol/ Magnesium Sulfate 10 meq/Calcium Gluconate 15 meq/ Multivitamins 10 ml/Chromium/ Copper/Manganese/ Seleni/Zn 0.5 ml/ Total Parenteral Nutrition/Amino Acids/Dextrose/ Fat Emulsion Intravenous 1,400 ml @ 58.333 mls/ hr TPN CONT IV Last administered on 07/12/19at 22:17; Start 07/12/19 at 22:00; Stop 07/13/19 at 21:59; Status DC Cefepime HCl (Maxipime) 2 gm Q12HR IVP Last administered on 07/26/19at 20:56; Start 07/13/19 at 09:00; Stop 07/27/19 at 09:58; Status DC Daptomycin 500 mg/ Sodium Chloride 50 ml @ 100 mls/hr Q48H IV Last administered on 07/29/19at 09:57; Start 07/13/19 at 08:30; Stop 07/29/19 at 10:07; Status DC Lidocaine HCl (Buffered Lidocaine 1%) 3 ml 1X ONCE INJ Last administered on 07/13/19at 10:27; Start 07/13/19 at 10:30; Stop 07/13/19 at 10:31; Status DC Potassium Phosphate 20 mmol/ Sodium Chloride 106.6667 ml @ 51.667 m... 1X ONCE IV Last administered on 07/13/19at 12:51; Start 07/13/19 at 13:00; Stop 07/13/19 at 15:03; Status DC Sodium Chloride 90 meq/Potassium Chloride 15 meq/ Potassium Phosphate 18 mmol/ M agnesium Sulfate 8 meq/Calcium Gluconate 15 meq/ Multivitamins 10 ml/Chromium/ Copper/Manganese/ Seleni/Zn 0.5 ml/ Total Parenteral Nutrition/Amino Acids/Dextrose/ Fat Emulsion Intravenous 1,400 ml @ 58.333 mls/ hr TPN CONT IV Last administered on 07/13/19at 22:16; Start 07/13/19 at 22:00; Stop 07/14/19 at 21:59; Status DC Potassium Chloride 20 meq/ Bicarbonate Dialysis Soln w/ out KCl 5,010 ml @ 1,000 mls/hr Q5H1M IV Last administered on 07/17/19at 14:54; Start 07/13/19 at 16:00; Stop 07/17/19 at 19:59; Status DC Multi-Ingred Cream/Lotion/Oil/ Oint (Artificial Tears Eye Ointment) 1 ramu PRN Q1HR PRN OU DRY EYE, 2nd choice Last administered on 08/01/19at 08:19; Start 07/13/19 at 17:30 Sodium Chloride 90 meq/Potassium Chloride 15 meq/ Potassium Phosphate 18 mmol/ Magnesium Sulfate 8 meq/Calcium Gluconate 15 meq/ Multivitamins 10 ml/Chromium/ Copper/Manganese/ Seleni/Zn 0.5 ml/ Total Parenteral Nutrition/Amino Acids/Dextrose/ Fat Emulsion Intravenous 1,400 ml @ 58.333 mls/ hr TPN CONT IV Last administered on 07/14/19at 22:00; Start 07/14/19 at 22:00; Stop 07/15/19 at 21:59; Status DC Albumin Human 500 ml @ 125 mls/hr 1X ONCE IV ; Start 07/14/19 at 14:15; Stop 07/14/19 at 18:14; Status DC Sodium Chloride 90 meq/Potassium Chloride 15 meq/ Potassium Phosphate 18 mmol/ Magnesium Sulfate 8 meq/Calcium Gluconate 15 meq/ Multivitamins 10 ml/Chromium/ Copper/Manganese/ Seleni/Zn 0.5 ml/ Insulin Human Regular 10 unit/ Total Parenteral Nutrition/Amino Acids/Dextrose/ Fat Emulsion Intravenous 1,400 ml @ 58.333 mls/ hr TPN CONT IV Last administered on 07/15/19at 21:43; Start 07/15/19 at 22:00; Stop 07/16/19 at 21:59; Status DC Lidocaine HCl (Buffered Lidocaine 1%) 3 ml STK-MED ONCE .ROUTE ; Start 07/13/19 at 10:00; Stop 07/15/19 at 13:57; Status DC Midazolam HCl 100 mg/Sodium Chloride 100 ml @ 7 mls/hr CONT PRN IV SEE PROTOCOL Last administered on 07/27/19at 15:35; Start 07/16/19 at 16:00 Sodium Chloride 90 meq/Potassium Chloride 15 meq/ Potassium Phosphate 18 mmol/ Magnesium Sulfate 8 meq/Calcium Gluconate 15 meq/ Multivitamins 10 ml/Chromium/ Copper/Manganese/ Seleni/Zn 0.5 ml/ Insulin Human Regular 15 unit/ Total Parenteral Nutrition/Amino Acids/Dextrose/ Fat Emulsion Intravenous 1,400 ml @ 58.333 mls/ hr TPN CONT IV Last administered on 07/16/19at 20:34; Start 07/16/19 at 22:00; Stop 07/17/19 at 21:59; Status DC Info (Icu Electrolyte Protocol) 1 ea CONT PRN PRN MC PER PROTOCOL; Start 07/17/19 at 13:15 Sodium Chloride 90 meq/Potassium Chloride 15 meq/ Potassium Phosphate 18 mmol/ Magnesium Sulfate 8 meq/Calcium Gluconate 15 meq/ Multivitamins 10 ml/Chromium/ Copper/Manganese/ Seleni/Zn 0.5 ml/ Insulin Human Regular 15 unit/ Total Pare nteral Nutrition/Amino Acids/Dextrose/ Fat Emulsion Intravenous 1,400 ml @ 58.333 mls/ hr TPN CONT IV Last administered on 07/17/19at 22:05; Start 07/17/19 at 22:00; Stop 07/18/19 at 21:59; Status DC Potassium Chloride 15 meq/ Bicarbonate Dialysis Soln w/ out KCl 5,007.5 ml @ 1,000 mls/ hr Q5H1M IV Last administered on 07/20/19at 18:14; Start 07/17/19 at 20:00; Stop 07/21/19 at 13:08; Status DC Potassium Chloride 15 meq/ Bicarbonate Dialysis Soln w/ out KCl 5,007.5 ml @ 1,000 mls/ hr Q5H1M IV Last administered on 07/20/19at 18:14; Start 07/17/19 at 20:00; Stop 07/21/19 at 13:08; Status DC Potassium Chloride 15 meq/ Bicarbonate Dialysis Soln w/ out KCl 5,007.5 ml @ 1,000 mls/ hr Q5H1M IV Last administered on 07/20/19at 18:14; Start 07/17/19 at 20:00; Stop 07/21/19 at 13:08; Status DC Iohexol (Omnipaque 240 Mg/ml) 30 ml 1X ONCE PO Last administered on 07/18/19at 11:30; Start 07/18/19 at 11:30; Stop 07/18/19 at 11:33; Status DC Info (CONTRAST GIVEN -- Rx MONITORING) 1 each PRN DAILY PRN MC SEE COMMENTS; S tart 07/18/19 at 11:45; Stop 07/20/19 at 11:44; Status DC Sodium Chloride 90 meq/Potassium Chloride 15 meq/ Potassium Phosphate 18 mmol/ Magnesium Sulfate 8 meq/Calcium Gluconate 15 meq/ Multivitamins 10 ml/Chromium/ Copper/Manganese/ Seleni/Zn 0.5 ml/ Insulin Human Regular 15 unit/ Total Parenteral Nutrition/Amino Acids/Dextrose/ Fat Emulsion Intravenous 1,400 ml @ 58.333 mls/ hr TPN CONT IV Last administered on 07/18/19at 21:47; Start 07/18/19 at 22:00; Stop 07/19/19 at 21:59; Status DC Sodium Chloride 90 meq/Potassium Chloride 15 meq/ Potassium Phosphate 18 mmol/ Magnesium Sulfate 8 meq/Calcium Gluconate 15 meq/ Multivitamins 10 ml/Chromium/ Copper/Manganese/ Seleni/Zn 0.5 ml/ Insulin Human Regular 20 unit/ Total Parenteral Nutrition/Amino Acids/Dextrose/ Fat Emulsion Intravenous 1,400 ml @ 58.333 mls/ hr TPN CONT IV Last administered on 07/19/19at 21:36; Start 07/19/19 at 22:00; Stop 07/20/19 at 21:59; Status DC Alteplase, Recombinant (Cathflo For Central Catheter Clearance) 1 mg 1X ONCE INT CAT Last administered on 07/19/19at 20:03; Start 07/19/19 at 19:30; Stop 07/19/19 at 19:46; Status DC Alteplase, Recombinant (Cathflo For Central Catheter Clearance) 1 mg 1X ONCE INT CAT Last administered on 07/19/19at 22:05; Start 07/19/19 at 22:00; Stop 07/19/19 at 22:01; Status DC Sodium Chloride 90 meq/Potassium Chloride 15 meq/ Potassium Phosphate 18 mmol/ Magnesium Sulfate 8 meq/Calcium Gluconate 15 meq/ Multivitamins 10 ml/Chromium/ Copper/Manganese/ Seleni/Zn 0.5 ml/ Insulin Human Regular 20 unit/ Total Parenteral Nutrition/Amino Acids/Dextrose/ Fat Emulsion Intravenous 1,400 ml @ 58.333 mls/ hr TPN CONT IV Last administered on 07/20/19at 21:30; Start 07/20/19 at 22:00; Stop 07/21/19 at 21:59; Status DC Dexmedetomidine HCl 400 mcg/ Sodium Chloride 100 ml @ 0 mls/hr CONT PRN IV ANXIETY / AGITATION Last administered on 08/17/19at 05:56; Start 07/21/19 at 08:15 Sodium Chloride 500 ml @ 500 mls/hr 1X PRN PRN IV ELEVATED BP, SEE COMMENTS; Start 07/21/19 at 08:15 Atropine Sulfate (ATROPINE 0.5mg SYRINGE) 0.5 mg PRN Q5MIN PRN IV SEE COMMENTS; Start 07/21/19 at 08:15 Furosemide (Lasix) 20 mg 1X ONCE IVP Last administered on 07/21/19at 08:19; Start 07/21/19 at 08:15; Stop 07/21/19 at 08:16; Status DC Lidocaine HCl (Buffered Lidocaine 1%) 3 ml STK-MED ONCE .ROUTE ; Start 07/21/19 at 08:39; Stop 07/21/19 at 08:39; Status DC Lidocaine HCl (Buffered Lidocaine 1%) 6 ml 1X ONCE INJ Last administered on 07/21/19at 09:05; Start 07/21/19 at 09:00; Stop 07/21/19 at 09:06; Status DC Sodium Chloride 90 meq/Potassium Chloride 15 meq/ Potassium Phosphate 18 mmol/ Magnesium Sulfate 8 meq/Calcium Gluconate 15 meq/ Multivitamins 10 ml/Chromium/ Copper/Manganese/ Seleni/Zn 0.5 ml/ Insulin Human Regular 20 unit/ Total Parenteral Nutrition/Amino Acids/Dextrose/ Fat Emulsion Intravenous 1,400 ml @ 58.333 mls/ hr TPN CONT IV Last administered on 07/21/19at 22:45; Start 07/21/19 at 22:00; Stop 07/22/19 at 21:59; Status DC Sodium Chloride 1,000 ml @ 1,000 mls/hr Q1H PRN IV hypotension; Start 07/22/19 at 07:30; Stop 07/22/19 at 13:29; Status DC Albumin Human 200 ml @ 200 mls/hr 1X PRN PRN IV Hypotension Last administered on 07/22/19at 09:36; Start 07/22/19 at 07:30; Stop 07/22/19 at 13:29; Status DC Sodium Chloride (Normal Saline Flush) 10 ml 1X PRN PRN IV AP catheter pack; Start 07/22/19 at 07:30; Stop 07/22/19 at 21:29; Status DC Sodium Chloride (Normal Saline Flush) 10 ml 1X PRN PRN IV MARKER HAND catheter pack; Start 07/22/19 at 07:30; Stop 07/23/19 at 07:29; Status DC Sodium Chloride 1,000 ml @ 400 mls/hr Q2H30M PRN IV PATENCY; Start 07/22/19 at 07:30; Stop 07/22/19 at 19:29; Status DC Info (PHARMACY MONITORING -- do not chart) 1 each PRN DAILY PRN MC SEE COMMENTS; Start 07/22/19 at 07:30; Stop 07/22/19 at 13:02; Status DC Info (PHARMACY MONITORING -- do not chart) 1 each PRN DAILY PRN MC SEE COMMENTS; Start 07/22/19 at 07:30; Stop 07/24/19 at 12:45; Status DC Sodium Chloride 90 meq/Potassium Chloride 15 meq/ Potassium Phosphate 10 mmol/ Magnesium Sulfate 8 meq/Calcium Gluconate 15 meq/ Multivitamins 10 ml/Chromium/ Copper/Manganese/ Seleni/Zn 0.5 ml/ Insulin Human Regular 25 unit/ Total Parenteral Nutrition/Amino Acids/Dextrose/ Fat Emulsion Intravenous 1,400 ml @ 58.333 mls/ hr TPN CONT IV Last administered on 07/22/19at 22:19; Start 07/22/19 at 22:00; Stop 07/23/19 at 21:59; Status DC Heparin Sodium (Porcine) (Heparin Sodium) 5,000 unit Q12HR SQ Last administered on 08/14/19at 08:59; Start 07/22/19 at 21:00; Stop 08/14/19 at 10:05; Status DC Ondansetron HCl (Zofran) 4 mg PRN Q6HRS PRN IV NAUSEA/VOMITING; Start 07/25/19 at 07:00; Stop 07/26/19 at 06:59; Status DC Fentanyl Citrate (Fentanyl 2ml Vial) 25 mcg PRN Q5MIN PRN IV MILD PAIN 1-3; Start 07/25/19 at 07:00; Stop 07/26/19 at 06:59; Status DC Fentanyl Citrate (Fentanyl 2ml Vial) 50 mcg PRN Q5MIN PRN IV MODERATE TO SEVERE PAIN; Start 07/25/19 at 07:00; Stop 07/26/19 at 06:59; Status DC Ringer's Solution 1,000 ml @ 30 mls/hr Q24H IV ; Start 07/25/19 at 07:00; Stop 07/25/19 at 18:59; Status DC Lidocaine HCl (Xylocaine-Mpf 1% 2ml Vial) 2 ml PRN 1X PRN ID PRIOR TO IV START; Start 07/25/19 at 07:00; Stop 07/26/19 at 06:59; Status DC Prochlorperazine Edisylate (Compazine) 5 mg PACU PRN PRN IV NAUSEA, MRX1; Start 07/25/19 at 07:00; Stop 07/26/19 at 06:59; Status DC Sodium Chloride 1,000 ml @ 1,000 mls/hr Q1H PRN IV hypotension; Start 07/23/19 at 09:10; Stop 07/23/19 at 15:09; Status DC Albumin Human 200 ml @ 200 mls/hr 1X PRN PRN IV Hypotension Last administered on 07/23/19at 10:10; Start 07/23/19 at 09:15; Stop 07/23/19 at 15:14; Status DC Sodium Chloride 1,000 ml @ 400 mls/hr Q2H30M PRN IV PATENCY; Start 07/23/19 at 09:10; Stop 07/23/19 at 21:09; Status DC Info (PHARMACY MONITORING -- do not chart) 1 each PRN DAILY PRN MC SEE COMMENTS; Start 07/23/19 at 09:15; Stop 07/24/19 at 12:45; Status DC Info (PHARMACY MONITORING -- do not chart) 1 each PRN DAILY PRN MC SEE COMMENTS; Start 07/23/19 at 09:15; Stop 07/24/19 at 12:45; Status DC Sodium Chloride 90 meq/Potassium Chloride 15 meq/ Potassium Phosphate 10 mmol/ Magnesium Sulfate 8 meq/Calcium Gluconate 15 meq/ Multivitamins 10 ml/Chromium/ Copper/Manganese/ Seleni/Zn 0.5 ml/ Insulin Human Regular 25 unit/ Total Parenteral Nutrition/Amino Acids/Dextrose/ Fat Emulsion Intravenous 1,400 ml @ 58.333 mls/ hr TPN CONT IV Last administered on 07/23/19at 22:10; Start 07/23/19 at 22:00; Stop 07/24/19 at 21:59; Status DC Magnesium Sulfate 50 ml @ 25 mls/hr PRN DAILY PRN IV for Mag < 1.7 on am labs Last administered on 08/08/19at 17:27; Start 07/24/19 at 09:15 Sodium Chloride 90 meq/Potassium Chloride 15 meq/ Potassium Phosphate 10 mmol/ Magnesium Sulfate 8 meq/Calcium Gluconate 15 meq/ Multivitamins 10 ml/Chromium/ Copper/Manganese/ Seleni/Zn 0.5 ml/ Insulin Human Regular 25 unit/ Total Parenteral Nutrition/Amino Acids/Dextrose/ Fat Emulsion Intravenous 1,400 ml @ 58.333 mls/ hr TPN CONT IV Last administered on 07/24/19at 21:20; Start 07/24/19 at 22:00; Stop 07/25/19 at 21:59; Status DC Sodium Chloride 1,000 ml @ 1,000 mls/hr Q1H PRN IV hypotension; Start 07/24/19 at 12:23; Stop 07/24/19 at 18:22; Status DC Albumin Human 200 ml @ 200 mls/hr 1X ONCE IV Last administered on 07/24/19at 13:34; Start 07/24/19 at 12:30; Stop 07/24/19 at 13:29; Status DC Diphenhydramine HCl (Benadryl) 25 mg 1X PRN PRN IV ITCHING; Start 07/24/19 at 12:30; Stop 07/25/19 at 12:29; Status DC Diphenhydramine HCl (Benadryl) 25 mg 1X PRN PRN IV ITCHING; Start 07/24/19 at 12:30; Stop 07/25/19 at 12:29; Status DC Info (PHARMACY MONITORING -- do not chart) 1 each PRN DAILY PRN MC SEE COMMENT S; Start 07/24/19 at 12:30; Status Cancel Bupivacaine HCl/ Epinephrine Bitart (Sensorcain-Epi 0.5%-1:[id number] Mpf) 30 ml STK-MED ONCE .ROUTE Last administered on 07/25/19at 11:44; Start 07/25/19 at 11:00; Stop 07/25/19 at 11:01; Status DC Cellulose (Surgicel Fibrillar 1x2) 1 each STK-MED ONCE .ROUTE ; Start 07/25/19 at 11:00; Stop 07/25/19 at 11:01; Status DC Sodium Chloride 90 meq/Potassium Chloride 15 meq/ Potassium Phosphate 10 mmol/ Magnesium Sulfate 12 meq/Calcium Gluconate 15 meq/ Multivitamins 10 ml/Chromium/ Copper/Manganese/ Seleni/Zn 0.5 ml/ Insulin Human Regular 25 unit/ Total Parenteral Nutrition/Amino Acids/Dextrose/ Fat Emulsion Intravenous 1,400 ml @ 58.333 mls/ hr TPN CONT IV Last administered on 07/25/19at 22:24; Start 07/25/19 at 22:00; Stop 07/26/19 at 21:59; Status DC Propofol 20 ml @ As Directed STK-MED ONCE IV ; Start 07/25/19 at 11:07; Stop 07/25/19 at 11:07; Status DC Cellulose (Surgicel Hemostat 4x8) 1 each STK-MED ONCE .ROUTE Last administered on 07/25/19at 11:44; Start 07/25/19 at 11:55; Stop 07/25/19 at 11:56; Status DC Sevoflurane (Ultane) 60 ml STK-MED ONCE IH ; Start 07/25/19 at 12:46; Stop 07/25/19 at 12:46; Status DC Sodium Chloride 1,000 ml @ 1,000 mls/hr Q1H PRN IV hypotension; Start 07/25/19 at 13:51; Stop 07/25/19 at 19:50; Status DC Albumin Human 200 ml @ 200 mls/hr 1X PRN PRN IV Hypotension Last administered on 07/25/19at 14:51; Start 07/25/19 at 14:00; Stop 07/25/19 at 19:59; Status DC Diphenhydramine HCl (Benadryl) 25 mg 1X PRN PRN IV ITCHING; Start 07/25/19 at 14:00; Stop 07/26/19 at 13:59; Status DC Diphenhydramine HCl (Benadryl) 25 mg 1X PRN PRN IV ITCHING; Start 07/25/19 at 14:00; Stop 07/26/19 at 13:59; Status DC Sodium Chloride 1,000 ml @ 400 mls/hr Q2H30M PRN IV PATENCY; Start 07/25/19 at 13:51; Stop 07/26/19 at 01:50; Status DC Info (PHARMACY MONITORING -- do not chart) 1 each PRN DAILY PRN MC SEE COMMENTS; Start 07/25/19 at 14:00; Stop 07/28/19 at 08:16; Status DC Heparin Sodium (Porcine) (Hep Lock Adult) 500 unit STK-MED ONCE IVP ; Start 07/26/19 at 09:29; Stop 07/26/19 at 09:30; Status DC Sodium Chloride 1,000 ml @ 1,000 mls/hr Q1H PRN IV hypotension; Start 07/26/19 at 10:43; Stop 07/26/19 at 16:42; Status DC Sodium Chloride 1,000 ml @ 400 mls/hr Q2H30M PRN IV PATENCY; Start 07/26/19 at 10:43; Stop 07/26/19 at 22:42; Status DC Info (PHARMACY MONITORING -- do not chart) 1 each PRN DAILY PRN MC SEE COMMENTS; Start 07/26/19 at 10:45; Status UNV Info (PHARMACY MONITORING -- do not chart) 1 each PRN DAILY PRN MC SEE COMMENTS; Start 07/26/19 at 10:45; Status UNV Sodium Chloride 90 meq/Potassium Chloride 15 meq/ Magnesium Sulfate 12 meq/Calcium Gluconate 15 meq/ Multivitamins 10 ml/Chromium/ Copper/Manganese/ Seleni/Zn 0.5 ml/ Insulin Human Regular 25 unit/ Total Parenteral Nutrition/Amino Acids/Dextrose/ Fat Emulsion Intravenous 1,400 ml @ 58.333 mls/ hr TPN CONT IV Last administered on 07/26/19at 22:13; Start 07/26/19 at 22:00; Stop 07/27/19 at 21:59; Status DC Sodium Chloride 1,000 ml @ 1,000 mls/hr Q1H PRN IV hypotension; Start 07/27/19 at 07:50; Stop 07/27/19 at 13:49; Status DC Albumin Human 200 ml @ 200 mls/hr 1X ONCE IV ; Start 07/27/19 at 08:00; Stop 07/27/19 at 08:53; Status DC Diphenhydramine HCl (Benadryl) 25 mg 1X PRN PRN IV ITCHING; Start 07/27/19 at 08:00; Stop 07/28/19 at 07:59; Status DC Diphenhydramine HCl (Benadryl) 25 mg 1X PRN PRN IV ITCHING; Start 07/27/19 at 08:00; Stop 07/28/19 at 07:59; Status DC Info (PHARMACY MONITORING -- do not chart) 1 each PRN DAILY PRN MC SEE COMMENTS; Start 07/27/19 at 08:00; Stop 07/28/19 at 08:16; Status DC Albumin Human 50 ml @ 50 mls/hr 1X ONCE IV ; Start 07/27/19 at 08:53; Stop 07/27/19 at 08:56; Status DC Albumin Human 200 ml @ 50 mls/hr PRN 1X PRN IV HYPOTENSION Last administered on 08/02/19at 11:54; Start 07/27/19 at 09:00 Meropenem 500 mg/ Sodium Chloride 50 ml @ 100 mls/hr Q12H IV Last administered on 08/16/19at 10:45; Start 07/27/19 at 10:00; Stop 08/16/19 at 12:37; Status DC Sodium Chloride 90 meq/Magnesium Sulfate 12 meq/ Calcium Gluconate 15 meq/ Multivitamins 10 ml/Chromium/ Copper/Manganese/ Seleni/Zn 0.5 ml/ Insulin Human Regular 25 unit/ Total Parenteral Nutrition/Amino Acids/Dextrose/ Fat Emulsion Intravenous 1,400 ml @ 58.333 mls/ hr TPN CONT IV Last administered on 07/27/19at 21:41; Start 07/27/19 at 22:00; Stop 07/28/19 at 21:59; Status DC Sodium Chloride 1,000 ml @ 1,000 mls/hr Q1H PRN IV hypotension; Start 07/28/19 at 07:58; Stop 07/28/19 at 13:57; Status DC Albumin Human 200 ml @ 200 mls/hr 1X PRN PRN IV Hypotension Last administered on 07/28/19at 09:30; Start 07/28/19 at 08:00; Stop 07/28/19 at 13:59; Status DC Sodium Chloride 1,000 ml @ 400 mls/hr Q2H30M PRN IV PATENCY; Start 07/28/19 at 07:58; Stop 07/28/19 at 19:57; Status DC Info (PHARMACY MONITORING -- do not chart) 1 each PRN DAILY PRN MC SEE COMMENTS; Start 07/28/19 at 08:00; Status Cancel Info (PHARMACY MONITORING -- do not chart) 1 each PRN DAILY PRN MC SEE COMMENTS; Start 07/28/19 at 08:15; Status UNV Sodium Chloride 90 meq/Potassium Phosphate 5 mmol/ Magnesium Sulfate 12 meq/Calcium Gluconate 15 meq/ Multivitamins 10 ml/Chromium/ Copper/Manganese/ Seleni/Zn 0.5 ml/ Insulin Human Regular 30 unit/ Total Parenteral Nutrition/Amino Acids/Dextrose/ Fat Emulsion Intravenous 1,400 ml @ 58.333 mls/ hr TPN CONT IV Last administered on 07/28/19at 22:08; Start 07/28/19 at 22:00; Stop 07/29/19 at 21:59; Status DC Linezolid/Dextrose 300 ml @ 300 mls/hr Q12HR IV Last administered on 08/08/19at 20:40; Start 07/29/19 at 11:00; Stop 08/09/19 at 08:10; Status DC Sodium Chloride 90 meq/Potassium Phosphate 15 mmol/ Magnesium Sulfate 12 meq/Calcium Gluconate 15 meq/ Multivitamins 10 ml/Chromium/ Copper/Manganese/ Seleni/Zn 0.5 ml/ Insulin Human Regular 30 unit/ Total Parenteral Nutrition/Amino Acids/Dextrose/ Fat Emulsion Intravenous 1,400 ml @ 58.333 mls/ hr TPN CONT IV Last administered on 07/29/19at 21:49; Start 07/29/19 at 22:00; Stop 07/30/19 at 21:59; Status DC Sodium Chloride 90 meq/Potassium Phosphate 15 mmol/ Magnesium Sulfate 12 meq/C alcium Gluconate 15 meq/ Multivitamins 10 ml/Chromium/ Copper/Manganese/ Seleni/Zn 0.5 ml/ Insulin Human Regular 40 unit/ Total Parenteral Nutrition/Amino Acids/Dextrose/ Fat Emulsion Intravenous 1,400 ml @ 58.333 mls/ hr TPN CONT IV Last administered on 07/30/19at 21:21; Start 07/30/19 at 22:00; Stop 07/31/19 at 21:59; Status DC Sodium Chloride 1,000 ml @ 1,000 mls/hr Q1H PRN IV hypotension; Start 07/30/19 at 13:26; Stop 07/30/19 at 19:25; Status DC Albumin Human 200 ml @ 200 mls/hr 1X PRN PRN IV Hypotension Last administered on 07/30/19at 15:00; Start 07/30/19 at 13:30; Stop 07/30/19 at 19:29; Status DC Sodium Chloride (Normal Saline Flush) 10 ml 1X PRN PRN IV AP catheter pack; Start 07/30/19 at 13:30; Stop 07/31/19 at 13:29; Status DC Sodium Chloride (Normal Saline Flush) 10 ml 1X PRN PRN IV MARKER HAND catheter pack; Start 07/30/19 at 13:30; Stop 07/31/19 at 13:29; Status DC Sodium Chloride 1,000 ml @ 400 mls/hr Q2H30M PRN IV PATENCY; Start 07/30/19 at 13:26; Stop 07/31/19 at 01:25; Status DC Info (PHARMACY MONITORING -- do not chart) 1 each PRN DAILY PRN MC SEE COMMENTS; Start 07/30/19 at 13:30; Stop 07/30/19 at 13:33; Status DC Info (PHARMACY MONITORING -- do not chart) 1 each PRN DAILY PRN MC SEE COMMENTS; Start 07/30/19 at 13:30; Stop 07/30/19 at 13:34; Status DC Sodium Chloride 90 meq/Potassium Phosphate 19 mmol/ Magnesium Sulfate 12 meq/Calcium Gluconate 15 meq/ Multivitamins 10 ml/Chromium/ Copper/Manganese/ Seleni/Zn 0.5 ml/ Insulin Human Regular 40 unit/ Total Parenteral Nutrition/Amino Acids/Dextrose/ Fat Emulsion Intravenous 1,400 ml @ 58.333 mls/ hr TPN CONT IV Last administered on 07/31/19at 21:54; Start 07/31/19 at 22:00; Stop 08/01/19 at 21:59; Status DC Sodium Chloride 1,000 ml @ 1,000 mls/hr Q1H PRN IV hypotension; Start 08/01/19 at 09:35; Stop 08/01/19 at 15:34; Status DC Albumin Human 200 ml @ 200 mls/hr 1X PRN PRN IV Hypotension; Start 08/01/19 at 09:45; Stop 08/01/19 at 15:44; Status DC Diphenhydramine HCl (Benadryl) 25 mg 1X PRN PRN IV ITCHING; Start 08/01/19 at 09:45; Stop 08/02/19 at 09:44; Status DC Diphenhydramine HCl (Benadryl) 25 mg 1X PRN PRN IV ITCHING; Start 08/01/19 at 09:45; Stop 08/02/19 at 09:44; Status DC Sodium Chloride 1,000 ml @ 400 mls/hr Q2H30M PRN IV PATENCY; Start 08/01/19 at 09:35; Stop 08/01/19 at 21:34; Status DC Info (PHARMACY MONITORING -- do not chart) 1 each PRN DAILY PRN MC SEE COMMENTS; Start 08/01/19 at 09:45; Status Cancel Sodium Chloride 100 meq/Potassium Phosphate 19 mmol/ Magnesium Sulfate 12 meq/Calcium Gluconate 15 meq/ Multivitamins 10 ml/Chromium/ Copper/Manganese/ Seleni/Zn 0.5 ml/ Insulin Human Regular 40 unit/ Potassium Chloride 20 meq/ Total Parenteral Nutrition/Amino Acids/Dextrose/ Fat Emulsion Intravenous 1,400 ml @ 58.333 mls/ hr TPN CONT IV Last administered on 08/01/19at 22:02; Start 08/01/19 at 22:00; Stop 08/02/19 at 21:59; Status DC Furosemide (Lasix) 40 mg 1X ONCE IVP Last administered on 08/01/19at 14:39; Start 08/01/19 at 14:30; Stop 08/01/19 at 14:31; Status DC Metronidazole 100 ml @ 100 mls/hr Q8HRS IV Last administered on 08/09/19at 06:04; Start 08/02/19 at 10:00; Stop 08/09/19 at 08:10; Status DC Sodium Chloride 1,000 ml @ 1,000 mls/hr Q1H PRN IV hypotension; Start 08/02/19 at 08:00; Stop 08/02/19 at 13:59; Status DC Albumin Human 200 ml @ 200 mls/hr 1X PRN PRN IV Hypotension; Start 08/02/19 at 08:00; Stop 08/02/19 at 13:59; Status DC Sodium Chloride 1,000 ml @ 400 mls/hr Q2H30M PRN IV PATENCY; Start 08/02/19 at 08:00; Stop 08/02/19 at 19:59; Status DC Info (PHARMACY MONITORING -- do not chart) 1 each PRN DAILY PRN MC SEE COMMENTS; Start 08/02/19 at 11:30; Status UNV Info (PHARMACY MONITORING -- do not chart) 1 each PRN DAILY PRN MC SEE COMMENTS; Start 08/02/19 at 11:30; Stop 08/04/19 at 12:13; Status DC Sodium Chloride 100 meq/Potassium Phosphate 19 mmol/ Magnesium Sulfate 12 meq/Calcium Gluconate 15 meq/ Multivitamins 10 ml/Chromium/ Copper/Manganese/ Seleni/Zn 0.5 ml/ Insulin Human Regular 40 unit/ Potassium Chloride 20 meq/ Total Parenteral Nutrition/Amino Acids/Dextrose/ Fat Emulsion Intravenous 1,400 ml @ 58.333 mls/ hr TPN CONT IV Last administered on 08/02/19at 21:52; Start 08/02/19 at 22:00; Stop 08/03/19 at 21:59; Status DC Sodium Chloride (Normal Saline Flush) 10 ml QSHIFT PRN IV AFTER MEDS AND BLOOD DRAWS; Start 08/02/19 at 15:00 Sodium Chloride (Normal Saline Flush) 10 ml PRN Q5MIN PRN IV AFTER MEDS AND BLOOD DRAWS; Start 08/02/19 at 15:00 Sodium Chloride (Normal Saline Flush) 20 ml PRN Q5MIN PRN IV AFTER MEDS AND BLOOD DRAWS; Start 08/02/19 at 15:00 Sodium Chloride 100 meq/Potassium Phosphate 19 mmol/ Magnesium Sulfate 12 meq/Calcium Gluconate 15 meq/ Multivitamins 10 ml/Chromium/ Copper/Manganese/ Seleni/Zn 0.5 ml/ Insulin Human Regular 40 unit/ Potassium Chloride 20 meq/ Total Parenteral Nutrition/Amino Acids/Dextrose/ Fat Emulsion Intravenous 1,400 ml @ 58.333 mls/ hr TPN CONT IV Last administered on 08/03/19at 21:20; Start 08/03/19 at 22:00; Stop 08/04/19 at 21:59; Status DC Lidocaine HCl (Buffered Lidocaine 1%) 3 ml STK-MED ONCE .ROUTE ; Start 08/03/19 at 13:16; Stop 08/03/19 at 13:16; Status DC Lidocaine HCl (Buffered Lidocaine 1%) 6 ml 1X ONCE INJ Last administered on 08/03/19at 13:45; Start 08/03/19 at 13:30; Stop 08/03/19 at 13:31; Status DC Albumin Human 100 ml @ 100 mls/hr 1X ONCE IV Last administered on 08/03/19at 15:41; Start 08/03/19 at 15:00; Stop 08/03/19 at 15:59; Status DC Albumin Human 50 ml @ 50 mls/hr 1X ONCE IV Last administered on 08/03/19at 15:00; Start 08/03/19 at 15:00; Stop 08/03/19 at 15:59; Status DC Info (PHARMACY MONITORING -- do not chart) 1 each PRN DAILY PRN MC SEE COMMENTS; Start 08/04/19 at 11:30; Status Cancel Info (PHARMACY MONITORING -- do not chart) 1 each PRN DAILY PRN MC SEE COMMENTS; Start 08/04/19 at 11:30; Status UNV Sodium Chloride 100 meq/Potassium Phosphate 10 mmol/ Magnesium Sulfate 12 meq/Calcium Gluconate 15 meq/ Multivitamins 10 ml/Chromium/ Copper/Manganese/ Seleni/Zn 0.5 ml/ Insulin Human Regular 35 unit/ Potassium Chloride 20 meq/ Total Parenteral Nutrition/Amino Acids/Dextrose/ Fat Emulsion Intravenous 1,400 ml @ 58.333 mls/ hr TPN CONT IV Last administered on 08/04/19at 22:10; Start 08/04/19 at 22:00; Stop 08/05/19 at 21:59; Status DC Sodium Chloride 100 meq/Potassium Phosphate 5 mmol/ Magnesium Sulfate 12 meq/Calcium Gluconate 15 meq/ Multivitamins 10 ml/Chromium/ Copper/Manganese/ Seleni/Zn 0.5 ml/ Insulin Human Regular 35 unit/ Potassium Chloride 20 meq/ Total Parenteral Nutrition/Amino Acids/Dextrose/ Fat Emulsion Intravenous 1,400 ml @ 58.333 mls/ hr TPN CONT IV Last administered on 08/05/19at 22:59; Start 08/05/19 at 22:00; Stop 08/06/19 at 21:59; Status DC Sodium Chloride 1,000 ml @ 1,000 mls/hr Q1H PRN IV hypotension; Start 08/06/19 at 08:27; Stop 08/06/19 at 14:26; Status DC Albumin Human 200 ml @ 200 mls/hr 1X PRN PRN IV Hypotension Last administered on 08/06/19at 09:18; Start 08/06/19 at 08:30; Stop 08/06/19 at 14:29; Status DC Sodium Chloride 1,000 ml @ 400 mls/hr Q2H30M PRN IV PATENCY; Start 08/06/19 at 08:27; Stop 08/06/19 at 20:26; Status DC Info (PHARMACY MONITORING -- do not chart) 1 each PRN DAILY PRN MC SEE COMMENTS; Start 08/06/19 at 08:30; Status Cancel Info (PHARMACY MONITORING -- do not chart) 1 each PRN DAILY PRN MC SEE COMMENTS; Start 08/06/19 at 08:30; Stop 08/14/19 at 13:10; Status DC Sodium Chloride 100 meq/Potassium Chloride 40 meq/ Magnesium Sulfate 15 meq/Calcium Gluconate 15 meq/ Multivitamins 10 ml/Chromium/ Copper/Manganese/ Seleni/Zn 0.5 ml/ Insulin Human Regular 35 unit/ Total Parenteral Nutrition/Amino Acids/Dextrose/ Fat Emulsion Intravenous 1,400 ml @ 58.333 mls/ hr TPN CONT IV Last administered on 08/06/19at 22:00; Start 08/06/19 at 22:00; Stop 08/07/19 at 21:59; Status DC Potassium Chloride/Water 100 ml @ 100 mls/hr 1X ONCE IV Last administered on 08/06/19at 17:28; Start 08/06/19 at 14:45; Stop 08/06/19 at 15:44; Status DC Sodium Chloride 100 meq/Potassium Chloride 40 meq/ Magnesium Sulfate 15 meq/Calcium Gluconate 15 meq/ Multivitamins 10 ml/Chromium/ Copper/Manganese/ Seleni/Zn 0.5 ml/ Insulin Human Regular 35 unit/ Total Parenteral Nutrition/Amino Acids/Dextrose/ Fat Emulsion Intravenous 1,400 ml @ 58.333 mls/ hr TPN CONT IV Last administered on 08/07/19at 22:46; Start 08/07/19 at 22:00; Stop 08/08/19 at 21:59; Status DC Sodium Chloride 100 meq/Potassium Chloride 40 meq/ Magnesium Sulfate 20 meq/Calcium Gluconate 15 meq/ Multivitamins 10 ml/Chromium/ Copper/Manganese/ Seleni/Zn 0.5 ml/ Insulin Human Regular 35 unit/ Total Parenteral Nutrition/Amino Acids/Dextrose/ Fat Emulsion Intravenous 1,400 ml @ 58.333 mls/ hr TPN CONT IV Last administered on 08/08/19at 22:31; Start 08/08/19 at 22:00; Stop 08/09/19 at 21:59; Status DC Fentanyl Citrate (Fentanyl 2ml Vial) 50 mcg PRN Q2HR PRN IVP PAIN Last administered on 08/15/19at 13:32; Start 08/08/19 at 21:00; Stop 08/16/19 at 12:53; Status DC Fentanyl Citrate (Fentanyl 2ml Vial) 25 mcg PRN Q2HR PRN IVP PAIN; Start 08/08/19 at 21:00; Stop 08/16/19 at 12:54; Status DC Enoxaparin Sodium (Lovenox 100mg Syringe) 100 mg Q12HR SQ ; Start 08/09/19 at 21:00; Status UNV Amino Acids/ Glycerin/ Electrolytes 1,000 ml @ 75 mls/hr [id number] IV ; Start 08/08/19 at 21:15; Status UNV Sodium Chloride 1,000 ml @ 1,000 mls/hr Q1H PRN IV hypotension; Start 08/09/19 at 07:56; Stop 08/09/19 at 13:55; Status DC Albumin Human 200 ml @ 200 mls/hr 1X PRN PRN IV Hypotension Last administered on 08/09/19at 08:40; Start 08/09/19 at 08:00; Stop 08/09/19 at 13:59; Status DC Sodium Chloride 1,000 ml @ 400 mls/hr Q2H30M PRN IV PATENCY; Start 08/09/19 at 07:56; Stop 08/09/19 at 19:55; Status DC Info (PHARMACY MONITORING -- do not chart) 1 each PRN DAILY PRN MC SEE COMMENTS; Start 08/09/19 at 08:00; Status UNV Info (PHARMACY MONITORING -- do not chart) 1 each PRN DAILY PRN MC SEE COMMENTS; Start 08/09/19 at 08:00; Status UNV Daptomycin 430 mg/ Sodium Chloride 50 ml @ 100 mls/hr Q24H IV Last administered on 08/09/19at 12:35; Start 08/09/19 at 09:00; Stop 08/09/19 at 12:49; Status DC Sodium Chloride 100 meq/Potassium Chloride 40 meq/ Magnesium Sulfate 20 meq/Calcium Gluconate 15 meq/ Multivitamins 10 ml/Chromium/ Copper/Manganese/ Seleni/Zn 0.5 ml/ Insulin Human Regular 35 unit/ Total Parenteral Nutrition/Amino Acids/Dextrose/ Fat Emulsion Intravenous 1,400 ml @ 58.333 mls/ hr TPN CONT IV Last administered on 08/09/19at 21:26; Start 08/09/19 at 22:00; Stop 08/10/19 at 21:59; Status DC Daptomycin 430 mg/ Sodium Chloride 50 ml @ 100 mls/hr Q48H IV ; Start 08/11/19 at 09:00; Stop 08/10/19 at 11:55; Status DC Sodium Chloride 100 meq/Potassium Chloride 40 meq/ Magnesium Sulfate 20 meq/Calcium Gluconate 15 meq/ Multivitamins 10 ml/Chromium/ Copper/Manganese/ Seleni/Zn 0.5 ml/ Insulin Human Regular 35 unit/ Total Parenteral Nutrition/Amino Acids/Dextrose/ Fat Emulsion Intravenous 1,400 ml @ 58.333 mls/ hr TPN CONT IV Last administered on 08/10/19at 22:27; Start 08/10/19 at 22:00; Stop 08/11/19 at 21:59; Status DC Daptomycin 430 mg/ Sodium Chloride 50 ml @ 100 mls/hr Q24H IV Last administered on 08/12/19at 15:07; Start 08/10/19 at 13:00; Stop 08/13/19 at 13:15; Status DC Sodium Chloride 100 meq/Potassium Chloride 40 meq/ Magnesium Sulfate 20 m eq/Calcium Gluconate 10 meq/ Multivitamins 10 ml/Chromium/ Copper/Manganese/ Seleni/Zn 0.5 ml/ Insulin Human Regular 35 unit/ Total Parenteral Nutrition/Amino Acids/Dextrose/ Fat Emulsion Intravenous 1,400 ml @ 58.333 mls/ hr TPN CONT IV Last administered on 08/12/19at 00:06; Start 08/11/19 at 22:00; Stop 08/12/19 at 21:59; Status DC Alteplase, Recombinant (Cathflo For Central Catheter Clearance) 1 mg 1X ONCE INT CAT Last administered on 08/12/19at 11:44; Start 08/12/19 at 10:45; Stop 08/12/19 at 10:46; Status DC Ondansetron HCl (Zofran) 4 mg PRN Q6HRS PRN IV NAUSEA/VOMITING; Start 08/15/19 at 07:00; Stop 08/16/19 at 06:59; Status DC Fentanyl Citrate (Fentanyl 2ml Vial) 25 mcg PRN Q5MIN PRN IV MILD PAIN 1-3; Start 08/15/19 at 07:00; Stop 08/16/19 at 06:59; Status DC Fentanyl Citrate (Fentanyl 2ml Vial) 50 mcg PRN Q5MIN PRN IV MODERATE TO SEVERE PAIN Last administered on 08/15/19at 10:17; Start 08/15/19 at 07:00; Stop 08/16/19 at 06:59; Status DC Ringer's Solution 1,000 ml @ 30 mls/hr Q24H IV ; Start 08/15/19 at 07:00; Stop 08/15/19 at 18:59; Status DC Lidocaine HCl (Xylocaine-Mpf 1% 2ml Vial) 2 ml PRN 1X PRN ID PRIOR TO IV START; Start 08/15/19 at 07:00; Stop 08/16/19 at 06:59; Status DC Prochlorperazine Edisylate (Compazine) 5 mg PACU PRN PRN IV NAUSEA, MRX1; Start 08/15/19 at 07:00; Stop 08/16/19 at 06:59; Status DC Sodium Acetate 50 meq/Potassium Acetate 55 meq/ Magnesium Sulfate 20 meq/Calcium Gluconate 10 meq/ Multivitamins 10 ml/Chromium/ Copper/Manganese/ Seleni/Zn 0.5 ml/ Insulin Human Regular 35 unit/ Total Parenteral Nutrition/Amino Acids/Dextrose/ Fat Emulsion Intravenous 1,400 ml @ 58.333 mls/ hr TPN CONT IV ; Start 08/12/19 at 22:00; Stop 08/12/19 at 14:15; Status DC Sodium Acetate 50 meq/Potassium Acetate 55 meq/ Magnesium Sulfate 20 meq/Calcium Gluconate 10 meq/ Multivitamins 10 ml/Chromium/ Copper/Manganese/ Seleni/Zn 0.5 ml/ Insulin Human Regular 35 unit/ Total Parenteral Nutrition/Amino Acids/Dextrose/ Fat Emulsion Intravenous 1,800 ml @ 75 mls/hr TPN CONT IV Last administered on 08/12/19at 22:38; Start 08/12/19 at 22:00; Stop 08/13/19 at 21:59; Status DC Sodium Chloride 1,000 ml @ 1,000 mls/hr Q1H PRN IV hypotension; Start 08/12/19 at 15:31; Stop 08/12/19 at 21:30; Status DC Diphenhydramine HCl (Benadryl) 25 mg 1X PRN PRN IV ITCHING; Start 08/12/19 at 15:45; Stop 08/13/19 at 15:44; Status DC Diphenhydramine HCl (Benadryl) 25 mg 1X PRN PRN IV ITCHING; Start 08/12/19 at 15:45; Stop 08/13/19 at 15:44; Status DC Sodium Chloride 1,000 ml @ 400 mls/hr Q2H30M PRN IV PATENCY; Start 08/12/19 at 15:31; Stop 08/13/19 at 03:30; Status DC Info (PHARMACY MONITORING -- do not chart) 1 each PRN DAILY PRN MC SEE COMMENTS; Start 08/12/19 at 15:45 Sodium Acetate 50 meq/Potassium Acetate 55 meq/ Magnesium Sulfate 20 meq/Calcium Gluconate 10 meq/ Multivitamins 10 ml/Chromium/ Copper/Manganese/ Seleni/Zn 0.5 ml/ Insulin Human Regular 35 unit/ Total Parenteral Nutrition/Amino Acids/Dextrose/ Fat Emulsion Intravenous 1,800 ml @ 75 mls/hr TPN CONT IV Last administered on 08/13/19at 22:03; Start 08/13/19 at 22:00; Stop 08/14/19 at 21:59; Status DC Daptomycin 430 mg/ Sodium Chloride 50 ml @ 100 mls/hr Q24H IV Last administered on 08/16/19at 14:32; Start 08/13/19 at 13:00 Heparin Sodium (Porcine) 1000 unit/Sodium Chloride 1,001 ml @ 1,001 mls/hr 1X ONCE IRR ; Start 08/15/19 at 06:00; Stop 08/15/19 at 06:59; Status DC Potassium Acetate 55 meq/Magnesium Sulfate 20 meq/ Calcium Gluconate 10 meq/ Multivitamins 10 ml/Chromium/ Copper/Manganese/ Seleni/Zn 0.5 ml/ Insulin Human Regular 35 unit/ Total Parenteral Nutrition/Amino Acids/Dextrose/ Fat Emulsion Intravenous 1,920 ml @ 80 mls/hr TPN CONT IV Last administered on 08/14/19at 22:10; Start 08/14/19 at 22:00; Stop 08/15/19 at 21:59; Status DC Dexamethasone Sodium Phosphate (Decadron) 4 mg STK-MED ONCE .ROUTE ; Start 08/15/19 at 10:56; Stop 08/15/19 at 10:57; Status DC Ondansetron HCl (Zofran) 4 mg STK-MED ONCE .ROUTE ; Start 08/15/19 at 10:56; Stop 08/15/19 at 10:57; Status DC Rocuronium [place] (Zemuron) 50 mg STK-MED ONCE .ROUTE ; Start 08/15/19 at 10:56; Stop 08/15/19 at 10:57; Status DC Fentanyl Citrate (Fentanyl 2ml Vial) 100 mcg STK-MED ONCE .ROUTE ; Start at 10:56; Stop 08/15/19 at 10:57; Status DC Bupivacaine HCl/ Epinephrine Bitart (Sensorcain-Epi 0.5%-1:088414 Mpf) 30 ml STK-MED ONCE .ROUTE Last administered on 08/15/19at 12:01; Start 08/15/19 at 10:58; Stop 08/15/19 at 10:58; Status DC Cellulose (Surgicel Hemostat 2x14) 1 each STK-MED ONCE .ROUTE ; Start 08/15/19 at 10:58; Stop 08/15/19 at 10:59; Status DC Iohexol (Omnipaque 300 Mg/ml) 50 ml STK-MED ONCE .ROUTE ; Start 08/15/19 at 10:58; Stop 08/15/19 at 10:59; Status DC Cellulose (Surgicel Hemostat 4x8) 1 each STK-MED ONCE .ROUTE ; Start 08/15/19 at 10:58; Stop 08/15/19 at 10:59; Status DC Bisacodyl (Dulcolax Supp) 10 mg STK-MED ONCE .ROUTE ; Start 08/15/19 at 10:59; Stop 08/15/19 at 10:59; Status DC Heparin Sodium (Porcine) 1000 unit/Sodium Chloride 1,001 ml @ 1,001 mls/hr 1X ONCE IRR ; Start 08/15/19 at 12:00; Stop 08/15/19 at 12:59; Status DC Propofol 20 ml @ As Directed STK-MED ONCE IV ; Start 08/15/19 at 11:05; Stop 08/15/19 at 11:05; Status DC Sevoflurane (Ultane) 90 ml STK-MED ONCE IH ; Start 08/15/19 at 11:05; Stop 08/15/19 at 11:05; Status DC Sevoflurane (Ultane) 60 ml STK-MED ONCE IH ; Start 08/15/19 at 12:26; Stop 08/15/19 at 12:27; Status DC Propofol 20 ml @ As Directed STK-MED ONCE IV ; Start 08/15/19 at 12:26; Stop 08/15/19 at 12:27; Status DC Phenylephrine HCl (PHENYLEPHRINE in 0.9% NACL PF) 1 mg STK-MED ONCE IV ; Start 08/15/19 at 12:34; Stop 08/15/19 at 12:34; Status DC Heparin Sodium (Porcine) (Heparin Sodium) 5,000 unit Q12HR SQ Last administered on 08/17/19at 08:44; Start 08/15/19 at 21:00 Sodium Chloride (Normal Saline Flush) 3 ml QSHIFT PRN IV AFTER MEDS AND BLOOD DRAWS; Start 08/15/19 at 13:45 Naloxone HCl (Narcan) 0.4 mg PRN Q2MIN PRN IV SEE INSTRUCTIONS; Start 08/15/19 at 13:45 Sodium Chloride 1,000 ml @ 25 mls/hr Q24H IV Last administered on 08/16/19at 13:37; Start 08/15/19 at 13:37 Naloxone HCl (Narcan) 0.4 mg PRN Q2MIN PRN IV SEE INSTRUCTIONS; Start 08/15/19 at 14:30; Status UNV Sodium Chloride 1,000 ml @ 25 mls/hr Q24H IV ; Start 08/15/19 at 14:30; Status UNV Hydromorphone HCl 30 ml @ 0 mls/hr CONT PRN PRN IV PER PROTOCOL Last administered on 08/16/19at 12:27; Start 08/15/19 at 14:30 Potassium Acetate 55 meq/Magnesium Sulfate 20 meq/ Calcium Gluconate 10 meq/ Multivitamins 10 ml/Chromium/ Copper/Manganese/ Seleni/Zn 0.5 ml/ Insulin Human Regular 35 unit/ Total Parenteral Nutrition/Amino Acids/Dextrose/ Fat Emulsion Intravenous 1,920 ml @ 80 mls/hr TPN CONT IV Last administered on 08/15/19at 22:01; Start 08/15/19 at 22:00; Stop 08/16/19 at 21:59; Status DC Bumetanide (Bumex) 2 mg [id number] IV Last administered on 08/17/19at 08:42; Start 08/16/19 at 14:00 Meropenem 1 gm/ Sodium Chloride 100 ml @ 200 mls/hr Q8HRS IV Last administered on 08/17/19at 05:23; Start 08/16/19 at 14:00 Potassium Acetate 55 meq/Magnesium Sulfate 20 meq/ Calcium Gluconate 10 meq/ Multivitamins 10 ml/Chromium/ Copper/Manganese/ Seleni/Zn 0.5 ml/ Insulin Human Regular 35 unit/ Total Parenteral Nutrition/Amino Acids/Dextrose/ Fat Emulsion Intravenous 1,920 ml @ 80 mls/hr TPN CONT IV Last administered on 08/16/19at 22:02; Start 08/16/19 at 22:00; Stop 08/17/19 at 21:59 Hydromorphone HCl (Dilaudid Standard CHAIR [employer] ATTENDANT) 12 mg STK-MED ONCE IV ; Start 08/15/19 at 14:35; Stop 08/16/19 at 13:53; Status DC Artificial Tears (Artificial Tears) 1 drop PRN Q15MIN PRN OU DRY EYE; Start 08/17/19 at 05:30 Active Scripts Active Reported Bisoprolol Fumarate 5 Mg Tablet 10 Mg PO DAILY Vitals/I & O Vital Sign - Last 24 Hours 08/16/19 08/16/19 08/16/19 08/16/19 09:24 10:00 10:49 11:00 Pulse 106 92 Resp 21 18 B/P (MAP) 108/87 (94) 140/63 (88) Pulse Ox 99 100 97 98 O2 Delivery Ventilator Ventilator Ventilator Ventilator 08/16/19 08/16/19 08/16/19 08/16/19 12:00 12:00 12:27 13:00 Temp 100.3 100.3 Pulse 140 Resp 26 19 21 B/P (MAP) 153/101 (118) Pulse Ox 99 98 100 O2 Delivery Ventilator Mechanical Ventilator BiPAP/CPAP Ventilator 08/16/19 08/16/19 08/16/19 08/16/19 13:00 13:13 14:00 14:50 Pulse 94 96 Resp 19 22 B/P (MAP) 154/81 (105) 117/73 (88) Pulse Ox 97 97 99 99 O2 Delivery Ventilator Ventilator Ventilator T-Tube O2 Flow Rate 8.0 08/16/19 08/16/19 08/16/19 08/16/19 15:00 16:00 16:00 17:00 Temp 99.5 99.5 Pulse 126 96 148 Resp 17 18 20 B/P (MAP) 194/88 (123) 127/90 (102) 184/87 (119) Pulse Ox 96 98 95 O2 Delivery Tracheal Collar Tracheal Collar Trach Collar Tracheal Collar 08/16/19 08/16/19 08/16/19 08/16/19 18:00 19:00 19:50 20:00 Temp 99.6 99.6 Pulse 80 148 111 Resp 17 18 20 B/P (MAP) 94/47 (63) 98/57 (71) 118/63 (81) Pulse Ox 99 98 98 99 O2 Delivery Ventilator Ventilator Ventilator Ventilator 08/16/19 08/16/19 08/16/19 08/16/19 20:00 21:00 22:00 23:00 Pulse 88 86 92 Resp 18 18 18 B/P (MAP) 94/47 (63) 86/45 (59) 83/43 (56) Pulse Ox 98 97 96 O2 Delivery Trach Collar Ventilator Ventilator Ventilator 08/17/19 08/17/19 08/17/19 08/17/19 00:00 00:00 00:13 01:00 Temp 99.2 99.2 Pulse 106 91 Resp 18 18 B/P (MAP) 137/85 (102) 107/56 (73) Pulse Ox 97 98 98 O2 Delivery Trach Collar Ventilator Ventilator Ventilator 08/17/19 08/17/19 08/17/19 08/17/19 02:00 03:00 03:19 04:00 Pulse 83 83 Resp 18 18 B/P (MAP) 95/52 (66) 105/52 (69) Pulse Ox 98 98 98 O2 Delivery Ventilator Ventilator Trach Collar 08/17/19 08/17/19 08/17/19 08/17/19 04:00 05:00 06:00 07:00 Temp 100.6 100.6 Pulse 100 88 85 80 Resp 22 18 18 17 B/P (MAP) 91/53 (66) 113/56 (75) 118/59 (78) 98/46 (63) Pulse Ox 98 98 95 98 O2 Delivery Ventilator Ventilator Ventilator Ventilator 08/17/19 08/17/19 08/17/19 07:57 08:00 08:00 Temp 99.3 99.3 Pulse 86 Resp 17 B/P (MAP) 140/86 (104) Pulse Ox 98 98 O2 Delivery Ventilator Ventilator Mechanical Ventilator Intake and Output 08/16/19 08/16/19 08/17/19 15:00 23:00 07:00 Intake Total 100 ml 1565 ml 1640.5 ml Output Total 1015 ml 1190 ml 860 ml Balance -915 ml 375 ml 780.5 ml Problem List Problems Medical Problems: (1) Acute pancreatitis Status: Acute (2) Cholelithiasis Status: Acute Assessment Acute, severe, biliary pancreatitis with MOSF; some parts of her are better. Continues with intermittent fever; no clear site of infection. Plan of Care Note Continue support. Antibiotic holiday? Allow any infection to be identified? Hemodynamically unstable?: No Is patient in severe pain?: No Is NPO status required?: Yes MARY RIVAS MD Aug 17, 2019 09:19
--- NOTE | 2019-08-17 10:07 | PDOC ---
PULMONARY PROGRESS NOTES Subjective Patient intubated on 07/10 , s/p trach 07/24, on vent Taken to the OR 08/14, NO SURGERY DONE / NOT A CANDIDATE DID TS FOR 2 HRS YESTERDAY Vitals Vital Signs Date Time Temp Pulse Resp B/P (MAP) Pulse Ox O2 Delivery O2 Flow Rate FiO2 08/17/19 08:00 Mechanical Ventilator 08/17/19 08:00 99.3 86 17 140/86 (104) 98 99.3 08/16/19 14:50 8.0 Comments ros unable to obtain on vent General: Alert HEENT: Other (nc at perrl nose clear nech trach site ok no lad no thyromegaly) Lungs: Crackles, Other (dimished in BLL nc at perrl nose clear neck trach site ok no lad no thyromegaly) Cardiovascular: S1, S2 Abdomen: Soft, Non-tender, Other (distended) Neuro Exam: Alert Extremities: Other (+3 generalized edema ) Skin: Warm, Dry Labs Laboratory Tests Test 08/15/19 13:40 08/15/19 18:04 08/16/19 00:57 08/16/19 07:00 Glucose (Fingerstick) 163 mg/dL (70-99) 208 mg/dL (70-99) 208 mg/dL (70-99) White Blood Count 6.3 x10^3/uL (4.0-11.0) Red Blood Count 4.12 x10^6/uL (3.50-5.40) Hemoglobin 12.1 g/dL (12.0-15.5) Hematocrit 37.5 % (36.0-47.0) Mean Corpuscular Volume 91 fL (79-100) Mean Corpuscular Hemoglobin 29 pg (25-35) Mean Corpuscular Hemoglobin Concent 32 g/dL (31-37) Red Cell Distribution Width 18.3 % (11.5-14.5) Platelet Count 267 x10^3/uL (140-400) Neutrophils (%) (Auto) 74 % (31-73) Lymphocytes (%) (Auto) 20 % (24-48) Monocytes (%) (Auto) 5 % (0-9) Eosinophils (%) (Auto) 0 % (0-3) Basophils (%) (Auto) 0 % (0-3) Neutrophils # (Auto) 4.7 x10^3/uL (1.8-7.7) Lymphocytes # (Auto) 1.3 x10^3/uL (1.0-4.8) Monocytes # (Auto) 0.3 x10^3/uL (0.0-1.1) Eosinophils # (Auto) 0.0 x10^3/uL (0.0-0.7) Basophils # (Auto) 0.0 x10^3/uL (0.0-0.2) Sodium Level 150 mmol/L (136-145) Potassium Level 3.9 mmol/L (3.5-5.1) Chloride Level 111 mmol/L (98-107) Carbon Dioxide Level 28 mmol/L (21-32) Anion Gap 11 (6-14) Blood Urea Nitrogen 63 mg/dL (7-20) Creatinine 0.9 mg/dL (0.6-1.0) Estimated GFR (Cockcroft-Gault) 66.5 Glucose Level 162 mg/dL (70-99) Calcium Level 8.8 mg/dL (8.5-10.1) Phosphorus Level 4.7 mg/dL (2.6-4.7) Magnesium Level 2.0 mg/dL (1.8-2.4) Iron Level 23 ug/dL (50-170) Total Iron Binding Capacity 76 ug/dL (250-450) Iron Saturation 30 % (15-34) Test 08/16/19 12:08 08/16/19 18:44 08/16/19 23:40 08/17/19 06:10 Glucose (Fingerstick) 148 mg/dL (70-99) 116 mg/dL (70-99) 94 mg/dL (70-99) White Blood Count 10.4 x10^3/uL (4.0-11.0) Red Blood Count 2.51 x10^6/uL (3.50-5.40) Hemoglobin 7.4 g/dL (12.0-15.5) Hematocrit 22.9 % (36.0-47.0) Mean Corpuscular Volume 91 fL (79-100) Mean Corpuscular Hemoglobin 29 pg (25-35) Mean Corpuscular Hemoglobin Concent 32 g/dL (31-37) Red Cell Distribution Width 18.4 % (11.5-14.5) Platelet Count 439 x10^3/uL (140-400) Sodium Level 151 mmol/L (136-145) Potassium Level 3.6 mmol/L (3.5-5.1) Chloride Level 114 mmol/L (98-107) Carbon Dioxide Level 29 mmol/L (21-32) Anion Gap 8 (6-14) Blood Urea Nitrogen 58 mg/dL (7-20) Creatinine 1.0 mg/dL (0.6-1.0) Estimated GFR (Cockcroft-Gault) 58.9 Glucose Level 104 mg/dL (70-99) Calcium Level 8.2 mg/dL (8.5-10.1) Test 08/17/19 06:14 08/17/19 08:00 Glucose (Fingerstick) 87 mg/dL (70-99) White Blood Count 14.5 x10^3/uL (4.0-11.0) Red Blood Count 2.89 x10^6/uL (3.50-5.40) Hemoglobin 8.5 g/dL (12.0-15.5) Hematocrit 26.9 % (36.0-47.0) Mean Corpuscular Volume 93 fL (79-100) Mean Corpuscular Hemoglobin 29 pg (25-35) Mean Corpuscular Hemoglobin Concent 32 g/dL (31-37) Red Cell Distribution Width 18.5 % (11.5-14.5) Platelet Count 446 x10^3/uL (140-400) Laboratory Tests Test 08/16/19 12:08 08/16/19 18:44 08/16/19 23:40 08/17/19 06:10 Glucose (Fingerstick) 148 mg/dL (70-99) 116 mg/dL (70-99) 94 mg/dL (70-99) White Blood Count 10.4 x10^3/uL (4.0-11.0) Red Blood Count 2.51 x10^6/uL (3.50-5.40) Hemoglobin 7.4 g/dL (12.0-15.5) Hematocrit 22.9 % (36.0-47.0) Mean Corpuscular Volume 91 fL (79-100) Mean Corpuscular Hemoglobin 29 pg (25-35) Mean Corpuscular Hemoglobin Concent 32 g/dL (31-37) Red Cell Distribution Width 18.4 % (11.5-14.5) Platelet Count 439 x10^3/uL (140-400) Sodium Level 151 mmol/L (136-145) Potassium Level 3.6 mmol/L (3.5-5.1) Chloride Level 114 mmol/L (98-107) Carbon Dioxide Level 29 mmol/L (21-32) Anion Gap 8 (6-14) Blood Urea Nitrogen 58 mg/dL (7-20) Creatinine 1.0 mg/dL (0.6-1.0) Estimated GFR (Cockcroft-Gault) 58.9 Glucose Level 104 mg/dL (70-99) Calcium Level 8.2 mg/dL (8.5-10.1) Test 08/17/19 06:14 08/17/19 08:00 Glucose (Fingerstick) 87 mg/dL (70-99) White Blood Count 14.5 x10^3/uL (4.0-11.0) Red Blood Count 2.89 x10^6/uL (3.50-5.40) Hemoglobin 8.5 g/dL (12.0-15.5) Hematocrit 26.9 % (36.0-47.0) Mean Corpuscular Volume 93 fL (79-100) Mean Corpuscular Hemoglobin 29 pg (25-35) Mean Corpuscular Hemoglobin Concent 32 g/dL (31-37) Red Cell Distribution Width 18.5 % (11.5-14.5) Platelet Count 446 x10^3/uL (140-400) Medications Active Scripts Medications Dose Route/Sig Max Daily Dose Days Date Category Bisoprolol Fumarate 5 Mg Tablet 10 Mg PO DAILY 07/04/19 Reported Comments cxr reviewed. Impression . IMPRESSION: 1. Acute hypoxemic respiratory failure secondary to ARDS status post trach, 2. Gallstone pancreatitis 3. Severe metabolic acidosis.stable 4. Acute kidney injury-stable, ON HD-- continue to improve 5. Acute gallstone pancreatitis. 6. Hypoalbuminemia. 7. Moderate persistent effusions 8. Fever- Per ID, per surgery 9. Chronic anemia 10. Covid 19 testing negative 11. Moderate to large ascites-S/P paracentisis S/P paracentisis with 4 liters removed on 08/03/19 Surgery note Operative Note: After obtaining informed consent, patient was taken to OR, induced under GETA and prepped in the usual fashion. 5 mm port placed umbilical and right mid abdomen, all under laparoscopic guidance. Large amount of ascites encountered and aspirated off. Fluid was clear with some whitish debris. Viscera was completely locked in with obliteration of all planes, preventing any significant exploration. Copious irrigation. Given patient's overall clinical improvement, favor against open procedure and attempt at cholecystectomy and/or necrosectomy, given high risk of com plications. Cholecystectomy will need to be performed, but favor waiting 3 months. 19 KAYLIN drain placed and secured with 3 0 nylon. Skin repaired with 4 0 monocryl. Dressing placed. Patient tolerated procedure well and sent to PACU in stable condition. All counts correct. Wound class is 4. Plan . We will continue our efforts at weaning Resume TS trials, extend duration precedex for anxiety Follow surgery input hep sq and protonix for prophylaxis Follow ID rec, abx per id Follow nephrology recs Nutritional support per surgery continue TPN for nutrition DVT/GI PPX d/w RN/RT VINAYAK LANDRUM MD Aug 17, 2019 10:07
[2019-08-17] MEDS ORDERED: HYDROmorphone STANDARD PCA 12 MG/30 ML SYRINGE. IV ONE (10:50)
--- NOTE | 2019-08-17 11:06 | PATHOLOGY ---
[facility] Accession Number: [id number] . 01 Material submitted: . abdomen - ABDOMINAL DEBRIDEMENT . 01 Clinical history: . Acute pancreatitis, cholecystitis . 02 Diagnosis: Abdominal debridement: - Segments of fibrinous and necrotic debris with focal acute inflammation. See comment. (JPM:jerardo; 08/16/2019) QMS 08/16/2019 1403 Local . 02 Comment: Sections of the abdominal debridement reveal segments of fibrinous and necrotic debris with focal acue inflammation. There appear to be focal clusters of small yeast within the debris. A properly controlled GMS stain for yeast/fungi is obtained and yields the following results: . GMS for yeast/fungi (A1): Clusters of small yeast confirmed within debris. (JPM:jerardo; 08/16/2019) . . Special stain performed: GMS for yeast-fungi . 02 Electronically signed: . Sascha Gomez MD, Pathologist NPI- [id number] . 01 Gross description: . The specimen is received in formalin, labeled "Marisel Diaz, abdominal debridement" and consists of necrotic gonzalez-brown tissue measuring 2.8 x 1.1 x 0.5 cm which is entirely submitted in A1. (SDY; 08/15/2019) SYU/SYU 08/15/2019 1657 Local . 02 Pathologist provided ICD-10: K85.90, K81.1 . 02 CPT . 646915, [id number] Specimen Comment: A courtesy copy of this report has been sent to [phone], [phone] Specimen Comment: [phone], Specimen Comment: Report sent to ,DR KIRBY / DR BOWEN Performed at: [address] [place] [id number] [facility] [address], [place], [place] [id number] MD Ryan Martinez MD Phone: [phone] Performed at: [address] [id number] MD Sascha Gomez MD Phone: [phone]
--- NOTE | 2019-08-17 11:11 | PDOC ---
SURGICAL PROGRESS NOTE Subjective Pt awake on vent Vital Signs Vital Signs Date Time Temp Pulse Resp B/P (MAP) Pulse Ox O2 Delivery O2 Flow Rate FiO2 08/17/19 10:00 122 21 105/51 (69) 99 Ventilator 08/17/19 08:00 99.3 99.3 08/16/19 14:50 8.0 I&O Intake and Output 08/17/19 07:00 Intake Total 3305.5 ml Output Total 3065 ml Balance 240.5 ml IV Total 3305.5 ml Output Urine Total 2960 ml Drainage Total 105 ml General: Alert, Cooperative, No acute distress Abdomen: Soft, No tenderness, Other (KAYLIN serous) Labs Laboratory Tests Test 08/15/19 13:40 08/15/19 18:04 08/16/19 00:57 08/16/19 07:00 Glucose (Fingerstick) 163 mg/dL (70-99) 208 mg/dL (70-99) 208 mg/dL (70-99) White Blood Count 6.3 x10^3/uL (4.0-11.0) Red Blood Count 4.12 x10^6/uL (3.50-5.40) Hemoglobin 12.1 g/dL (12.0-15.5) Hematocrit 37.5 % (36.0-47.0) Mean Corpuscular Volume 91 fL (79-100) Mean Corpuscular Hemoglobin 29 pg (25-35) Mean Corpuscular Hemoglobin Concent 32 g/dL (31-37) Red Cell Distribution Width 18.3 % (11.5-14.5) Platelet Count 267 x10^3/uL (140-400) Neutrophils (%) (Auto) 74 % (31-73) Lymphocytes (%) (Auto) 20 % (24-48) Monocytes (%) (Auto) 5 % (0-9) Eosinophils (%) (Auto) 0 % (0-3) Basophils (%) (Auto) 0 % (0-3) Neutrophils # (Auto) 4.7 x10^3/uL (1.8-7.7) Lymphocytes # (Auto) 1.3 x10^3/uL (1.0-4.8) Monocytes # (Auto) 0.3 x10^3/uL (0.0-1.1) Eosinophils # (Auto) 0.0 x10^3/uL (0.0-0.7) Basophils # (Auto) 0.0 x10^3/uL (0.0-0.2) Sodium Level 150 mmol/L (136-145) Potassium Level 3.9 mmol/L (3.5-5.1) Chloride Level 111 mmol/L (98-107) Carbon Dioxide Level 28 mmol/L (21-32) Anion Gap 11 (6-14) Blood Urea Nitrogen 63 mg/dL (7-20) Creatinine 0.9 mg/dL (0.6-1.0) Estimated GFR (Cockcroft-Gault) 66.5 Glucose Level 162 mg/dL (70-99) Calcium Level 8.8 mg/dL (8.5-10.1) Phosphorus Level 4.7 mg/dL (2.6-4.7) Magnesium Level 2.0 mg/dL (1.8-2.4) Iron Level 23 ug/dL (50-170) Total Iron Binding Capacity 76 ug/dL (250-450) Iron Saturation 30 % (15-34) Test 08/16/19 12:08 08/16/19 18:44 08/16/19 23:40 08/17/19 06:10 Glucose (Fingerstick) 148 mg/dL (70-99) 116 mg/dL (70-99) 94 mg/dL (70-99) White Blood Count 10.4 x10^3/uL (4.0-11.0) Red Blood Count 2.51 x10^6/uL (3.50-5.40) Hemoglobin 7.4 g/dL (12.0-15.5) Hematocrit 22.9 % (36.0-47.0) Mean Corpuscular Volume 91 fL (79-100) Mean Corpuscular Hemoglobin 29 pg (25-35) Mean Corpuscular Hemoglobin Concent 32 g/dL (31-37) Red Cell Distribution Width 18.4 % (11.5-14.5) Platelet Count 439 x10^3/uL (140-400) Sodium Level 151 mmol/L (136-145) Potassium Level 3.6 mmol/L (3.5-5.1) Chloride Level 114 mmol/L (98-107) Carbon Dioxide Level 29 mmol/L (21-32) Anion Gap 8 (6-14) Blood Urea Nitrogen 58 mg/dL (7-20) Creatinine 1.0 mg/dL (0.6-1.0) Estimated GFR (Cockcroft-Gault) 58.9 Glucose Level 104 mg/dL (70-99) Calcium Level 8.2 mg/dL (8.5-10.1) Test 08/17/19 06:14 08/17/19 08:00 Glucose (Fingerstick) 87 mg/dL (70-99) White Blood Count 14.5 x10^3/uL (4.0-11.0) Red Blood Count 2.89 x10^6/uL (3.50-5.40) Hemoglobin 8.5 g/dL (12.0-15.5) Hematocrit 26.9 % (36.0-47.0) Mean Corpuscular Volume 93 fL (79-100) Mean Corpuscular Hemoglobin 29 pg (25-35) Mean Corpuscular Hemoglobin Concent 32 g/dL (31-37) Red Cell Distribution Width 18.5 % (11.5-14.5) Platelet Count 446 x10^3/uL (140-400) Laboratory Tests Test 08/16/19 12:08 08/16/19 18:44 08/16/19 23:40 08/17/19 06:10 Glucose (Fingerstick) 148 mg/dL (70-99) 116 mg/dL (70-99) 94 mg/dL (70-99) White Blood Count 10.4 x10^3/uL (4.0-11.0) Red Blood Count 2.51 x10^6/uL (3.50-5.40) Hemoglobin 7.4 g/dL (12.0-15.5) Hematocrit 22.9 % (36.0-47.0) Mean Corpuscular Volume 91 fL (79-100) Mean Corpuscular Hemoglobin 29 pg (25-35) Mean Corpuscular Hemoglobin Concent 32 g/dL (31-37) Red Cell Distribution Width 18.4 % (11.5-14.5) Platelet Count 439 x10^3/uL (140-400) Sodium Level 151 mmol/L (136-145) Potassium Level 3.6 mmol/L (3.5-5.1) Chloride Level 114 mmol/L (98-107) Carbon Dioxide Level 29 mmol/L (21-32) Anion Gap 8 (6-14) Blood Urea Nitrogen 58 mg/dL (7-20) Creatinine 1.0 mg/dL (0.6-1.0) Estimated GFR (Cockcroft-Gault) 58.9 Glucose Level 104 mg/dL (70-99) Calcium Level 8.2 mg/dL (8.5-10.1) Test 08/17/19 06:14 08/17/19 08:00 Glucose (Fingerstick) 87 mg/dL (70-99) White Blood Count 14.5 x10^3/uL (4.0-11.0) Red Blood Count 2.89 x10^6/uL (3.50-5.40) Hemoglobin 8.5 g/dL (12.0-15.5) Hematocrit 26.9 % (36.0-47.0) Mean Corpuscular Volume 93 fL (79-100) Mean Corpuscular Hemoglobin 29 pg (25-35) Mean Corpuscular Hemoglobin Concent 32 g/dL (31-37) Red Cell Distribution Width 18.5 % (11.5-14.5) Platelet Count 446 x10^3/uL (140-400) Problem List Problems Medical Problems: (1) Acute pancreatitis Status: Acute (2) Cholelithiasis Status: Acute Assessment/Plan s/p lap exp cont drain and supportive care cholecystectomy in 3 months. DAVON SIMMS MD Aug 17, 2019 11:11
[2019-08-17] MEDS: HYDROmorphone 12mg/30ml PCA 30 ML IV PRN (11:28)
--- NOTE | 2019-08-17 11:39 | PDOC ---
Infectious Disease Note Subjective: Subjective Patient alert awake Still weak Patient had fever of 100.6 earlier this a.m. Remains on vent via trach, TPN Vital Signs: Vital Signs Vital Signs Date Time Temp Pulse Resp B/P (MAP) Pulse Ox O2 Delivery O2 Flow Rate FiO2 08/17/19 11:28 97 Ventilator 08/17/19 11:00 83 18 90/61 (71) 08/17/19 08:00 99.3 99.3 08/16/19 14:50 8.0 Physical Exam: PHYSICAL EXAM GENERAL: Propped up in bed, sedated weak appearing HEENT: Pupils equal, + NGT, oral cavity dry NECK: Trach/vent LUNGS: rhonchi HEART: S1, S2, regular ABDOMEN: Distended, hypoactive BS, drain placement (08/14 ) : Lind (08/01) EXTREMITIES: Generalized edema, no cyanosis, SCDs bilaterally DERMATOLOGIC: Warm and dry. No generalized rash. CENTRAL NERVOUS SYSTEM: Extremely weak, nods to few simple questions HDC has been removed [facility] (08/01) clean Medications: Inpatient Meds: Current Medications Medications (Trade) Dose Ordered Sig/Yvon Start Time Stop Time Status Last Admin Dose Admin Acetaminophen (Tylenol Supp) 650 mg PRN Q6HRS PRN 07/12/19 10:30 08/15/19 00:32 650 MG Acetaminophen (Tylenol) 650 mg PRN Q6HRS PRN 07/09/19 03:36 08/04/19 19:56 650 MG Albumin Human 200 ml @ 200 mls/hr 1X PRN PRN 08/09/19 08:00 08/09/19 13:59 DC 08/09/19 08:40 200 MLS/HR Albuterol Sulfate (Ventolin Neb Soln) 2.5 mg 1X ONCE 07/05/19 22:30 07/05/19 22:31 DC 07/06/19 00:56 2.5 MG Alteplase, Recombinant (Cathflo For Central Catheter Clearance) 1 mg 1X ONCE 08/12/19 10:45 08/12/19 10:46 DC 08/12/19 11:44 1 MG Amino Acids/ Glycerin/ Electrolytes 1,000 ml @ 75 mls/hr [id number] 08/08/19 21:15 UNV Artificial Tears (Artificial Tears) 1 drop PRN Q15MIN PRN 08/17/19 05:30 Atenolol (Tenormin) 100 mg DAILY 07/05/19 09:00 07/04/19 20:08 DC Atropine Sulfate (ATROPINE 0.5mg SYRINGE) 0.5 mg PRN Q5MIN PRN 07/21/19 08:15 Benzocaine (Hurricaine One) 1 spray 1X ONCE 07/08/19 14:30 07/08/19 14:31 DC 07/08/19 16:38 1 SPRAY Bisacodyl (Dulcolax Supp) 10 mg STK-MED ONCE 08/15/19 10:59 08/15/19 10:59 DC Bumetanide (Bumex) 2 mg [id number] 08/16/19 14:00 08/17/19 08:42 2 MG Bupivacaine HCl/ Epinephrine Bitart (Sensorcain-Epi 0.5%-1:[id number] Mpf) 30 ml STK-MED ONCE 08/15/19 10:58 08/15/19 10:58 DC 08/15/19 12:01 7 ML Calcium Carbonate/ Glycine (Tums) 500 mg PRN [id number] PRN 07/06/19 17:45 Calcium Chloride 1000 mg/Sodium Chloride 110 ml @ 220 mls/hr 1X ONCE 07/05/19 22:30 07/05/19 22:59 DC 07/05/19 22:11 220 MLS/HR Calcium Chloride 3000 mg/Sodium Chloride 1,030 ml @ 50 mls/hr [id number] 07/07/19 08:00 07/09/19 15:23 DC 07/09/19 02:17 50 MLS/HR Calcium Gluconate (Calcium Gluconate) 2,000 mg 1X ONCE 07/07/19 02:15 07/07/19 02:16 DC 07/07/19 02:19 2,000 MG Calcium Gluconate 1000 mg/Sodium Chloride 110 ml @ 220 mls/hr 1X ONCE 07/06/19 03:30 07/06/19 03:59 DC 07/06/19 03:21 220 MLS/HR Calcium Gluconate 2000 mg/Sodium Chloride 120 ml @ 220 mls/hr 1X ONCE 07/06/19 07:30 07/06/19 08:02 DC 07/06/19 09:05 220 MLS/HR Cefepime HCl (Maxipime) 2 gm Q12HR 07/13/19 09:00 07/27/19 09:58 DC 07/26/19 20:56 2 GM Cellulose (Surgicel Fibrillar 1x2) 1 each STK-MED ONCE 07/25/19 11:00 07/25/19 11:01 DC Cellulose (Surgicel Hemostat 2x14) 1 each STK-MED ONCE 08/15/19 10:58 08/15/19 10:59 DC Cellulose (Surgicel Hemostat 4x8) 1 each STK-MED ONCE 08/15/19 10:58 08/15/19 10:59 DC Daptomycin 430 mg/ Sodium Chloride 50 ml @ 100 mls/hr Q24H 08/13/19 13:00 08/16/19 14:32 100 MLS/HR Daptomycin 500 mg/ Sodium Chloride 50 ml @ 100 mls/hr Q48H 07/13/19 08:30 07/29/19 10:07 DC 07/29/19 09:57 100 MLS/HR Dexamethasone Sodium Phosphate (Decadron) 4 mg STK-MED ONCE 08/15/19 10:56 08/15/19 10:57 DC Dexmedetomidine HCl 400 mcg/ Sodium Chloride 100 ml @ 0 mls/hr CONT PRN 07/21/19 08:15 08/17/19 09:22 33 MLS/HR Dextrose (Dextrose 50%-Water Syringe) 12.5 gm PRN Q15MIN PRN 07/04/19 09:30 Digoxin (Lanoxin) 125 mcg 1X ONCE 07/07/19 18:00 07/07/19 18:01 DC 07/07/19 17:10 125 MCG Diphenhydramine HCl (Benadryl) 25 mg 1X PRN PRN 08/12/19 15:45 08/13/19 15:44 DC Enoxaparin Sodium (Lovenox 100mg Syringe) 100 mg Q12HR 08/09/19 21:00 UNV Etomidate (Amidate) 8 mg 1X ONCE 07/11/19 08:30 07/11/19 08:31 DC 07/11/19 08:33 8 MG Fentanyl Citrate (Fentanyl 2ml Vial) 100 mcg STK-MED ONCE 08/15/19 10:56 08/15/19 10:57 DC Furosemide (Lasix) 40 mg 1X ONCE 08/01/19 14:30 08/01/19 14:31 DC 08/01/19 14:39 40 MG Heparin Sodium (Porcine) (Hep Lock Adult) 500 unit STK-MED ONCE 07/26/19 09:29 07/26/19 09:30 DC Heparin Sodium (Porcine) (Heparin Sodium) 5,000 unit Q12HR 08/15/19 21:00 08/17/19 08:44 5,000 UNIT Heparin Sodium (Porcine) 1000 unit/Sodium Chloride 1,001 ml @ 1,001 mls/hr 1X ONCE 08/15/19 12:00 08/15/19 12:59 DC Hydromorphone HCl (Dilaudid Standard FIRST ASSISTANT) 12 mg STK-MED ONCE 08/16/19 12:05 08/17/19 09:15 DC Hydromorphone HCl (Dilaudid) 1 mg PRN Q3HRS PRN 07/05/19 12:00 07/19/19 00:25 DC 07/11/19 05:13 1 MG Info (CONTRAST GIVEN -- Rx MONITORING) 1 each PRN DAILY PRN 07/18/19 11:45 07/20/19 11:44 DC Info (Icu Electrolyte Protocol) 1 ea CONT PRN PRN 07/17/19 13:15 Info (PHARMACY MONITORING -- do not chart) 1 each PRN DAILY PRN 08/12/19 15:45 Info (Tpn Per Pharmacy) 1 each PRN DAILY PRN 07/06/19 12:30 UNV Insulin Human Lispro (HumaLOG) 0-9 UNITS Q6HRS 07/04/19 09:30 08/16/19 08:42 4 UNITS Insulin Human Regular (HumuLIN R VIAL) 5 unit 1X ONCE 07/05/19 22:30 07/05/19 22:31 DC 07/05/19 22:14 5 UNIT Iohexol (Omnipaque 240 Mg/ml) 30 ml 1X ONCE 07/18/19 11:30 07/18/19 11:33 DC 07/18/19 11:30 30 ML Iohexol (Omnipaque 300 Mg/ml) 50 ml STK-MED ONCE 08/15/19 10:58 08/15/19 10:59 DC Iohexol (Omnipaque 350 Mg/ml) 90 ml 1X ONCE 07/04/19 03:30 07/04/19 03:31 DC 07/04/19 03:25 90 ML Ketorolac Tromethamine (Toradol 30mg Vial) 30 mg 1X ONCE 07/04/19 03:00 07/04/19 03:01 DC 07/04/19 02:54 30 MG Lidocaine HCl (Buffered Lidocaine 1%) 6 ml 1X ONCE 08/03/19 13:30 08/03/19 13:31 DC 08/03/19 13:45 9 ML Lidocaine HCl (Glydo (Lidocaine) Jelly) 1 ramu 1X ONCE 07/08/19 14:30 07/08/19 14:31 DC 07/08/19 16:38 1 RAMU Lidocaine HCl (Xylocaine-Mpf 1% 2ml Vial) 2 ml PRN 1X PRN 08/15/19 07:00 08/16/19 06:59 DC Linezolid/Dextrose 300 ml @ 300 mls/hr Q12HR 07/29/19 11:00 08/09/19 08:10 DC 08/08/19 20:40 300 MLS/HR Lorazepam (Ativan Inj) 1 mg PRN Q4HRS PRN 07/07/19 09:00 08/05/19 09:19 DC 08/05/19 03:51 1 MG Magnesium Sulfate 50 ml @ 25 mls/hr PRN DAILY PRN 07/24/19 09:15 08/08/19 17:27 25 MLS/HR Meropenem 1 gm/ Sodium Chloride 100 ml @ 200 mls/hr Q8HRS 08/16/19 14:00 08/17/19 05:23 200 MLS/HR Meropenem 500 mg/ Sodium Chloride 50 ml @ 100 mls/hr Q12H 07/27/19 10:00 08/16/19 12:37 DC 08/16/19 10:45 100 MLS/HR Metoprolol Tartrate (Lopressor Vial) 5 mg Q6HRS 07/05/19 10:15 07/16/19 08:48 DC 07/14/19 00:12 5 MG Metronidazole 100 ml @ 100 mls/hr Q8HRS 08/02/19 10:00 08/09/19 08:10 DC 08/09/19 06:04 100 MLS/HR Micafungin Sodium 100 mg/Dextrose 100 ml @ 100 mls/hr Q24H 07/11/19 09:00 08/17/19 08:43 100 MLS/HR Midazolam HCl (Versed) 5 mg 1X ONCE 07/11/19 08:30 07/11/19 08:31 DC Midazolam HCl 100 mg/Sodium Chloride 100 ml @ 7 mls/hr CONT PRN 07/16/19 16:00 07/27/19 15:35 7 MLS/HR Midazolam HCl 50 mg/Sodium Chloride 50 ml @ 0 mls/hr CONT PRN 07/11/19 08:15 07/16/19 15:59 DC 07/14/19 22:39 7 MLS/HR Morphine Sulfate (Morphine Sulfate) 2 mg PRN Q2HR PRN 07/04/19 05:00 07/05/19 14:15 DC 07/05/19 12:26 2 MG Multi-Ingred Cream/Lotion/Oil/ Oint (Artificial Tears Eye Ointment) 1 ramu PRN Q1HR PRN 07/13/19 17:30 08/01/19 08:19 1 RAMU Naloxone HCl (Narcan) 0.4 mg PRN Q2MIN PRN 08/15/19 14:30 UNV Norepinephrine Bitartrate 8 mg/ Dextrose 258 ml @ 17.299 mls/ hr CONT PRN 07/05/19 15:30 08/05/19 09:19 DC 08/02/19 12:48 20.9 MLS/HR Ondansetron HCl (Zofran) 4 mg STK-MED ONCE 08/15/19 10:56 08/15/19 10:57 DC Pantoprazole Sodium (PROTONIX VIAL for IV PUSH) 40 mg DAILYAC 07/04/19 11:30 08/17/19 07:39 40 MG Phenylephrine HCl (PHENYLEPHRINE in 0.9% NACL PF) 1 mg STK-MED ONCE 08/15/19 12:34 08/15/19 12:34 DC Piperacillin Sod/ Tazobactam Sod 4.5 gm/Sodium Chloride 100 ml @ 200 mls/hr 1X ONCE 07/04/19 06:00 07/04/19 06:29 DC 07/04/19 05:44 200 MLS/HR Potassium Chloride 15 meq/ Bicarbonate Dialysis Soln w/ out KCl 5,007.5 ml @ 1,000 mls/ hr Q5H1M 07/17/19 20:00 07/21/19 13:08 DC 07/20/19 18:14 1,000 MLS/HR Potassium Chloride 20 meq/ Bicarbonate Dialysis Soln w/ out KCl 5,010 ml @ 1,000 mls/hr Q5H1M 07/13/19 16:00 07/17/19 19:59 DC 07/17/19 14:54 1,000 MLS/HR Potassium Chloride/Water 100 ml @ 100 mls/hr 1X ONCE 08/06/19 14:45 08/06/19 15:44 DC 08/06/19 17:28 100 MLS/HR Potassium Phosphate 20 mmol/ Sodium Chloride 106.6667 ml @ 51.667 m... 1X ONCE 07/13/19 13:00 07/13/19 15:03 DC 07/13/19 12:51 51.667 MLS/HR Potassium Acetate 55 meq/Magnesium Sulfate 20 meq/ Calcium Gluconate 10 meq/ Multivitamins 10 ml/Chromium/ Copper/Manganese/ Seleni/Zn 0.5 ml/ Insulin Human Regular 35 unit/ Total Parenteral Nutrition/Amino Acids/Dextrose/ Fat Emulsion Intravenous 1,920 ml @ 80 mls/hr TPN CONT 08/16/19 22:00 08/17/19 21:59 08/16/19 22:02 80 MLS/HR Prochlorperazine Edisylate (Compazine) 5 mg PACU PRN PRN 08/15/19 07:00 08/16/19 06:59 DC Propofol 20 ml @ As Directed STK-MED ONCE 08/15/19 12:26 08/15/19 12:27 DC Ringer's Solution 1,000 ml @ 30 mls/hr Q24H 08/15/19 07:00 08/15/19 18:59 DC Rocuronium [place] (Zemuron) 50 mg STK-MED ONCE 08/15/19 10:56 08/15/19 10:57 DC Sevoflurane (Ultane) 60 ml STK-MED ONCE 08/15/19 12:26 08/15/19 12:27 DC Sodium Bicarbonate 50 meq/Sodium Chloride 1,050 ml @ 75 mls/hr Q14H 07/06/19 07:30 07/11/19 10:28 DC 07/10/19 21:10 75 MLS/HR Sodium Acetate 50 meq/Potassium Acetate 55 meq/ Magnesium Sulfate 20 meq/Calcium Gluconate 10 meq/ Multivitamins 10 ml/Chromium/ Copper/Manganese/ Seleni/Zn 0.5 ml/ Insulin Human Regular 35 unit/ Total Parenteral Nutrition/Amino Acids/Dextrose/ Fat Emulsion Intravenous 1,800 ml @ 75 mls/hr TPN CONT 08/13/19 22:00 08/14/19 21:59 DC 08/13/19 22:03 75 MLS/HR Sodium Chloride 1,000 ml @ 25 mls/hr Q24H 08/15/19 14:30 UNV Sodium Chloride (Normal Saline Flush) 3 ml QSHIFT PRN 08/15/19 13:45 Sodium Chloride 90 meq/Calcium Gluconate 10 meq/ Multivitamins 10 ml/Chromium/ Copper/Manganese/ Seleni/Zn 0.5 ml/ Total Parenteral Nutrition/Amino Acids/Dextrose/ Fat Emulsion Intravenous 1,512 ml @ 63 mls/hr TPN CONT 07/06/19 22:00 07/07/19 21:59 DC 07/06/19 22:06 63 MLS/HR Sodium Chloride 90 meq/Calcium Gluconate 10 meq/ Multivitamins 10 ml/Chromium/ Copper/Manganese/ Seleni/Zn 1 ml/ Total Parenteral Nutrition/Amino Acids/Dextrose/ Fat Emulsion Intravenous 55.005 ml @ 2.292 mls/hr TPN CONT 07/06/19 22:00 07/06/19 12:33 DC Sodium Chloride 90 meq/Magnesium Sulfate 10 meq/ Calcium Gluconate 20 meq/ Multivitamins 10 ml/Chromium/ Copper/Manganese/ Seleni/Zn 0.5 ml/ Total Parenteral Nutrition/Amino Acids/Dextrose/ Fat Emulsion Intravenous 1,512 ml @ 63 mls/hr TPN CONT 07/07/19 22:00 07/08/19 21:59 DC 07/07/19 22:25 63 MLS/HR Sodium Chloride 90 meq/Magnesium Sulfate 12 meq/ Calcium Gluconate 15 meq/ Multivitamins 10 ml/Chromium/ Copper/Manganese/ Seleni/Zn 0.5 ml/ Insulin Human Regular 25 unit/ Total Parenteral Nutrition/Amino Acids/Dextrose/ Fat Emulsion Intravenous 1,400 ml @ 58.333 mls/ hr TPN CONT 07/27/19 22:00 07/28/19 21:59 DC 07/27/19 21:41 58.333 MLS/HR Sodium Chloride 90 meq/Potassium Chloride 15 meq/ Magnesium Sulfate 12 meq/Calcium Gluconate 15 meq/ Multivitamins 10 ml/Chromium/ Copper/Manganese/ Seleni/Zn 0.5 ml/ Insulin Human Regular 25 unit/ Total Parenteral Nutrition/Amino Acids/Dextrose/ Fat Emulsion Intravenous 1,400 ml @ 58.333 mls/ hr TPN CONT 07/26/19 22:00 07/27/19 21:59 DC 07/26/19 22:13 58.333 MLS/HR Sodium Chloride 90 meq/Potassium Chloride 15 meq/ Potassium Phosphate 10 mmol/ Magnesium Sulfate 8 meq/Calcium Gluconate 15 meq/ Multivitamins 10 ml/Chromium/ Copper/Manganese/ Seleni/Zn 0.5 ml/ Insulin Human Regular 25 unit/ Total Parenteral Nutrition/Amino Acids/Dextrose/ Fat Emulsion Intravenous 1,400 ml @ 58.333 mls/ hr TPN CONT 07/24/19 22:00 07/25/19 21:59 DC 07/24/19 21:20 58.333 MLS/HR Sodium Chloride 90 meq/Potassium Chloride 15 meq/ Potassium Phosphate 10 mmol/ Magnesium Sulfate 10 meq/Calcium Gluconate 20 meq/ Multivitamins 10 ml/Chromium/ Copper/Manganese/ Seleni/Zn 0.5 ml/ Total Parenteral Nutrition/Amino Acids/Dextrose/ Fat Emulsion Intravenous 1,400 ml @ 58.333 mls/ hr TPN CONT 07/11/19 22:00 07/12/19 21:59 DC 07/11/19 21:42 58.333 MLS/HR Sodium Chloride 90 meq/Potassium Chloride 15 meq/ Potassium Phosphate 10 mmol/ Magnesium Sulfate 12 meq/Calcium Gluconate 15 meq/ Multivitamins 10 ml/Chromium/ Copper/Manganese/ Seleni/Zn 0.5 ml/ Insulin Human Regular 25 unit/ Total Parenteral Nutrition/Amino Acids/Dextrose/ Fat Emulsion Intravenous 1,400 ml @ 58.333 mls/ hr TPN CONT 07/25/19 22:00 07/26/19 21:59 DC 07/25/19 22:24 58.333 MLS/HR Sodium Chloride 90 meq/Potassium Chloride 15 meq/ Potassium Phosphate 15 mmol/ Magnesium Sulfate 10 meq/Calcium Gluconate 15 meq/ Multivitamins 10 ml/Chromium/ Copper/Manganese/ Seleni/Zn 0.5 ml/ Total Parenteral Nutrition/Amino Acids/Dextrose/ Fat Emulsion Intravenous 1,400 ml @ 58.333 mls/ hr TPN CONT 07/12/19 22:00 07/13/19 21:59 DC 07/12/19 22:17 58.333 MLS/HR Sodium Chloride 90 meq/Potassium Chloride 15 meq/ Potassium Phosphate 15 mmol/ Magnesium Sulfate 10 meq/Calcium Gluconate 20 meq/ Multivitamins 10 ml/Chromium/ Copper/Manganese/ Seleni/Zn 0.5 ml/ Total Parenteral Nutrition/Amino Acids/Dextrose/ Fat Emulsion Intravenous 1,200 ml @ 50 mls/hr TPN CONT 07/10/19 22:00 07/10/19 14:17 DC Sodium Chloride 90 meq/Potassium Chloride 15 meq/ Potassium Phosphate 18 mmol/ Magnesium Sulfate 8 meq/Calcium Gluconate 15 meq/ Multivitamins 10 ml/Chromium/ Copper/Manganese/ Seleni/Zn 0.5 ml/ Insulin Human Regular 10 unit/ Total Parenteral Nutrition/Amino Acids/Dextrose/ Fat Emulsion Intravenous 1,400 ml @ 58.333 mls/ hr TPN CONT 07/15/19 22:00 07/16/19 21:59 DC 07/15/19 21:43 58.333 MLS/HR Sodium Chloride 90 meq/Potassium Chloride 15 meq/ Potassium Phosphate 18 mmol/ Magnesium Sulfate 8 meq/Calcium Gluconate 15 meq/ Multivitamins 10 ml/Chromium/ Copper/Manganese/ Seleni/Zn 0.5 ml/ Insulin Human Regular 15 unit/ Total Parenteral Nutrition/Amino Acids/Dextrose/ Fat Emulsion Intravenous 1,400 ml @ 58.333 mls/ hr TPN CONT 07/18/19 22:00 07/19/19 21:59 DC 07/18/19 21:47 58.333 MLS/HR Sodium Chloride 90 meq/Potassium Chloride 15 meq/ Potassium Phosphate 18 mmol/ Magnesium Sulfate 8 meq/Calcium Gluconate 15 meq/ Multivitamins 10 ml/Chromium/ Copper/Manganese/ Seleni/Zn 0.5 ml/ Insulin Human Regular 20 unit/ Total Parenteral Nutrition/Amino Acids/Dextrose/ Fat Emulsion Intravenous 1,400 ml @ 58.333 mls/ hr TPN CONT 07/21/19 22:00 07/22/19 21:59 DC 07/21/19 22:45 58.333 MLS/HR Sodium Chloride 90 meq/Potassium Chloride 15 meq/ Potassium Phosphate 18 mmol/ Magnesium Sulfate 8 meq/Calcium Gluconate 15 meq/ Multivitamins 10 ml/Chromium/ Copper/Manganese/ Seleni/Zn 0.5 ml/ Total Parenteral Nutrition/Amino Acids/Dextrose/ Fat Emulsion Intravenous 1,400 ml @ 58.333 mls/ hr TPN CONT 07/14/19 22:00 07/15/19 21:59 DC 07/14/19 22:00 58.333 MLS/HR Sodium Chloride 90 meq/Potassium Phosphate 15 mmol/ Magnesium Sulfate 12 meq/Calcium Gluconate 15 meq/ Multivitamins 10 ml/Chromium/ Copper/Manganese/ Seleni/Zn 0.5 ml/ Insulin Human Regular 30 unit/ Total Parenteral Nutrition/Amino Acids/Dextrose/ Fat Emulsion Intravenous 1,400 ml @ 58.333 mls/ hr TPN CONT 07/29/19 22:00 07/30/19 21:59 DC 07/29/19 21:49 58.333 MLS/HR Sodium Chloride 90 meq/Potassium Phosphate 15 mmol/ Magnesium Sulfate 12 meq/Calcium Gluconate 15 meq/ Multivitamins 10 ml/Chromium/ Copper/Manganese/ Seleni/Zn 0.5 ml/ Insulin Human Regular 40 unit/ Total Parenteral Nutrition/Amino Acids/Dextrose/ Fat Emulsion Intravenous 1,400 ml @ 58.333 mls/ hr TPN CONT 07/30/19 22:00 07/31/19 21:59 DC 07/30/19 21:21 58.333 MLS/HR Sodium Chloride 90 meq/Potassium Phosphate 19 mmol/ Magnesium Sulfate 12 meq/Calcium Gluconate 15 meq/ Multivitamins 10 ml/Chromium/ Copper/Manganese/ Seleni/Zn 0.5 ml/ Insulin Human Regular 40 unit/ Total Parenteral Nutrition/Amino Acids/Dextrose/ Fat Emulsion Intravenous 1,400 ml @ 58.333 mls/ hr TPN CONT 07/31/19 22:00 08/01/19 21:59 DC 07/31/19 21:54 58.333 MLS/HR Sodium Chloride 90 meq/Potassium Phosphate 5 mmol/ Magnesium Sulfate 12 meq/Calcium Gluconate 15 meq/ Multivitamins 10 ml/Chromium/ Copper/Manganese/ Seleni/Zn 0.5 ml/ Insulin Human Regular 30 unit/ Total Parenteral Nutrition/Amino Acids/Dextrose/ Fat Emulsion Intravenous 1,400 ml @ 58.333 mls/ hr TPN CONT 07/28/19 22:00 07/29/19 21:59 DC 07/28/19 22:08 58.333 MLS/HR Sodium Chloride 100 meq/Potassium Chloride 40 meq/ Magnesium Sulfate 15 meq/Calcium Gluconate 15 meq/ Multivitamins 10 ml/Chromium/ Copper/Manganese/ Seleni/Zn 0.5 ml/ Insulin Human Regular 35 unit/ Total Parenteral Nutrition/Amino Acids/Dextrose/ Fat Emulsion Intravenous 1,400 ml @ 58.333 mls/ hr TPN CONT 08/07/19 22:00 08/08/19 21:59 DC 08/07/19 22:46 58.333 MLS/HR Sodium Chloride 100 meq/Potassium Chloride 40 meq/ Magnesium Sulfate 20 meq/Calcium Gluconate 10 meq/ Multivitamins 10 ml/Chromium/ Copper/Manganese/ Seleni/Zn 0.5 ml/ Insulin Human Regular 35 unit/ Total Parenteral Nutrition/Amino Acids/Dextrose/ Fat Emulsion Intravenous 1,400 ml @ 58.333 mls/ hr TPN CONT 08/11/19 22:00 08/12/19 21:59 DC 08/12/19 00:06 58.333 MLS/HR Sodium Chloride 100 meq/Potassium Chloride 40 meq/ Magnesium Sulfate 20 meq/Calcium Gluconate 15 meq/ Multivitamins 10 ml/Chromium/ Copper/Manganese/ Seleni/Zn 0.5 ml/ Insulin Human Regular 35 unit/ Total Parenteral Nutrition/Amino Acids/Dextrose/ Fat Emulsion Intravenous 1,400 ml @ 58.333 mls/ hr TPN CONT 08/10/19 22:00 08/11/19 21:59 DC 08/10/19 22:27 58.333 MLS/HR Sodium Chloride 100 meq/Potassium Phosphate 10 mmol/ Magnesium Sulfate 12 meq/Calcium Gluconate 15 meq/ Multivitamins 10 ml/Chromium/ Copper/Manganese/ Seleni/Zn 0.5 ml/ Insulin Human Regular 35 unit/ Potassium Chloride 20 meq/ Total Parenteral Nutrition/Amino Acids/Dextrose/ Fat Emulsion Intravenous 1,400 ml @ 58.333 mls/ hr TPN CONT 08/04/19 22:00 08/05/19 21:59 DC 08/04/19 22:10 58.333 MLS/HR Sodium Chloride 100 meq/Potassium Phosphate 19 mmol/ Magnesium Sulfate 12 meq/Calcium Gluconate 15 meq/ Multivitamins 10 ml/Chromium/ Copper/Manganese/ Seleni/Zn 0.5 ml/ Insulin Human Regular 40 unit/ Potassium Chloride 20 meq/ Total Parenteral Nutrition/Amino Acids/Dextrose/ Fat Emulsion Intravenous 1,400 ml @ 58.333 mls/ hr TPN CONT 08/03/19 22:00 08/04/19 21:59 DC 08/03/19 21:20 58.333 MLS/HR Sodium Chloride 100 meq/Potassium Phosphate 5 mmol/ Magnesium Sulfate 12 meq/Calcium Gluconate 15 meq/ Multivitamins 10 ml/Chromium/ Copper/Manganese/ Seleni/Zn 0.5 ml/ Insulin Human Regular 35 unit/ Potassium Chloride 20 meq/ Total Parenteral Nutrition/Amino Acids/Dextrose/ Fat Emulsion Intravenous 1,400 ml @ 58.333 mls/ hr TPN CONT 08/05/19 22:00 08/06/19 21:59 DC 08/05/19 22:59 58.333 MLS/HR Succinylcholine Chloride (Anectine) 120 mg 1X ONCE 07/11/19 08:30 07/11/19 08:31 DC 07/11/19 08:34 120 MG Labs: Lab Laboratory Tests Test 08/16/19 12:08 08/16/19 18:44 08/16/19 23:40 08/17/19 06:10 Glucose (Fingerstick) 148 mg/dL (70-99) 116 mg/dL (70-99) 94 mg/dL (70-99) White Blood Count 10.4 x10^3/uL (4.0-11.0) Red Blood Count 2.51 x10^6/uL (3.50-5.40) Hemoglobin 7.4 g/dL (12.0-15.5) Hematocrit 22.9 % (36.0-47.0) Mean Corpuscular Volume 91 fL (79-100) Mean Corpuscular Hemoglobin 29 pg (25-35) Mean Corpuscular Hemoglobin Concent 32 g/dL (31-37) Red Cell Distribution Width 18.4 % (11.5-14.5) Platelet Count 439 x10^3/uL (140-400) Sodium Level 151 mmol/L (136-145) Potassium Level 3.6 mmol/L (3.5-5.1) Chloride Level 114 mmol/L (98-107) Carbon Dioxide Level 29 mmol/L (21-32) Anion Gap 8 (6-14) Blood Urea Nitrogen 58 mg/dL (7-20) Creatinine 1.0 mg/dL (0.6-1.0) Estimated GFR (Cockcroft-Gault) 58.9 Glucose Level 104 mg/dL (70-99) Calcium Level 8.2 mg/dL (8.5-10.1) Test 08/17/19 06:14 08/17/19 08:00 Glucose (Fingerstick) 87 mg/dL (70-99) White Blood Count 14.5 x10^3/uL (4.0-11.0) Red Blood Count 2.89 x10^6/uL (3.50-5.40) Hemoglobin 8.5 g/dL (12.0-15.5) Hematocrit 26.9 % (36.0-47.0) Mean Corpuscular Volume 93 fL (79-100) Mean Corpuscular Hemoglobin 29 pg (25-35) Mean Corpuscular Hemoglobin Concent 32 g/dL (31-37) Red Cell Distribution Width 18.5 % (11.5-14.5) Platelet Count 446 x10^3/uL (140-400) Objective: Assessment: Fever resolving Acute pancreatitis with persistent necrosis CT a/p 07/27 Increased ascites. 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 Leucocytosis improving JUANA,Hyperkalemia, Metabolic acidosis off dialysis Acute hypoxic resp failure ,bilateral pleural effusion and atelectasis hypocalcemia Prediabetes HTN s/p trach Plan: Plan of Care cont merrem (07/26), micafungin, daptomycin (zyvox changed to dapto (08/09), to rule out serotonin sy causing fever) Bilateral upper extremity Doppler ultrasound to rule out DVT If negative for DVT ,DC central line and place PICC line Monitor for abx toxicities. Maintain aspiration precautions PT and OT as tolerated D/w nursing Critically ill YUNIOR JONES MD Aug 17, 2019 11:39
[2019-08-17] MEDS: DAPTOmycin (GENERIC) IVPB 430 MG in IV NORMAL SALINE 50ML 50 ML IV SCH (12:26)
--- NOTE | 2019-08-17 12:37 | NUR ---
This AM, Bonnie Neri ordered a Bilateral UE US to rule out any infection/DVT. This RN notified Dr. Neri that the central line is due to be changed (15 [address]). [address] Neri said that if the US comes back negative then we can put a PICC line in her. Dr. Zarco rounded around noon and this RN asked about a PICC line. Dr. Zarco agreed to us placing a PICC line. Dr. Zarco also ordered blood culture x2 due b/c pt spiked fever again at noon 100.0. Still awaiting for pt to receive US. US notified.
--- NOTE | 2019-08-17 13:44 | RAD ---
INDICATION: Bilateral arm swelling COMPARISON: None. TECHNIQUE: Grayscale, color and doppler ultrasound images were obtained of the bilateral upper extremity venous vasculature. No thrombus identified in the internal jugular, subclavian, axillary, brachial, basilic, cephalic, radial or ulnar veins. Edema of soft tissues. IMPRESSION: 1. No thrombus identified in deep venous system of bilateral upper extremity. Electronically signed by: Dionte Case MD (08/17/2019 1:41 PM) [id number]
--- NOTE | 2019-08-17 13:45 | PDOC ---
Renal-Progress Notes Subjective Notes Notes SITTING UP History of Present Illness Hx of present illness FEVER TODAY Vitals Vitals Vital Signs Date Time Temp Pulse Resp B/P (MAP) Pulse Ox O2 Delivery O2 Flow Rate FiO2 08/17/19 12:21 98 Ventilator 08/17/19 12:00 100.0 141 38 159/68 (98) 100.0 08/16/19 14:50 8.0 Weight Weight [ ] I.O. Intake and Output Intake and Output 08/17/19 07:00 Intake Total 3305.5 ml Output Total 3065 ml Balance 240.5 ml IV Total 3305.5 ml Output Urine Total 2960 ml Drainage Total 105 ml Labs Labs Laboratory Tests Test 08/16/19 18:44 08/16/19 23:40 08/17/19 06:10 08/17/19 06:14 Glucose (Fingerstick) 116 mg/dL (70-99) 94 mg/dL (70-99) 87 mg/dL (70-99) White Blood Count 10.4 x10^3/uL (4.0-11.0) Red Blood Count 2.51 x10^6/uL (3.50-5.40) Hemoglobin 7.4 g/dL (12.0-15.5) Hematocrit 22.9 % (36.0-47.0) Mean Corpuscular Volume 91 fL (79-100) Mean Corpuscular Hemoglobin 29 pg (25-35) Mean Corpuscular Hemoglobin Concent 32 g/dL (31-37) Red Cell Distribution Width 18.4 % (11.5-14.5) Platelet Count 439 x10^3/uL (140-400) Sodium Level 151 mmol/L (136-145) Potassium Level 3.6 mmol/L (3.5-5.1) Chloride Level 114 mmol/L (98-107) Carbon Dioxide Level 29 mmol/L (21-32) Anion Gap 8 (6-14) Blood Urea Nitrogen 58 mg/dL (7-20) Creatinine 1.0 mg/dL (0.6-1.0) Estimated GFR (Cockcroft-Gault) 58.9 Glucose Level 104 mg/dL (70-99) Calcium Level 8.2 mg/dL (8.5-10.1) Test 08/17/19 08:00 08/17/19 12:25 White Blood Count 14.5 x10^3/uL (4.0-11.0) Red Blood Count 2.89 x10^6/uL (3.50-5.40) Hemoglobin 8.5 g/dL (12.0-15.5) Hematocrit 26.9 % (36.0-47.0) Mean Corpuscular Volume 93 fL (79-100) Mean Corpuscular Hemoglobin 29 pg (25-35) Mean Corpuscular Hemoglobin Concent 32 g/dL (31-37) Red Cell Distribution Width 18.5 % (11.5-14.5) Platelet Count 446 x10^3/uL (140-400) Glucose (Fingerstick) 125 mg/dL (70-99) Micro Micro Microbiology 08/03/19 Aerobic and Anaerobic Culture - Final, Complete 08/03/19 Anaerobic Culture Result 1 (ALEXANDRA) - Final, Complete 08/03/19 Aerobic Culture - Final, Complete 08/03/19 Aerobic Culture Result 1 (ALEXANDRA) - Final, Complete 08/03/19 Gram Stain - Final, Complete 08/03/19 Gram Stain Result 1 (ALEXANDRA) - Final, Complete 08/03/19 Gram Stain Result 2 (ALEXANDRA) - Final, Complete 08/02/19 Blood Culture - Final, Complete NO GROWTH AFTER 5 DAYS 07/31/19 Urine Culture - Final, Complete 07/31/19 Urine Culture Result 1 (ALEXANDRA) - Final, Complete Review of Systems Constitutional: yes: other (ON THE VENT) Physical Exam General Appearance: other (ON THE VENT, TRACH) Skin: warm Respiratory: decreased breath sounds Heart: S1S2 Abdomen: soft, bowel sounds present Genitourinary: bladder flat Extremities: pulses present, edema Neurology: alert, oriented, other Assessment Assessment IMP FEVER AND LEUCOCYTOSIS-?SEPSIS HYPERNATREMIA [id number] IMPROVED AND OFF HD FOR NOW ANEMIA ANASARCA DUE TO 3RD SPACING HYPERKALEMIA-RESOLVED ACIDOSIS AND ACIDEMIA-RESOLVED ACUTE REPS FAILURE-TRACH ACUTE PANCREATITIS MALNUTRITION PLAN CONT TO HOLD HD FOR NOW TPN TO CONTINUE NEEDED PRBC NEEDED START HIRAM IF NEEDED VENT SUPPORT CONT IV LASIX ANTIBIOTICS-ID EVAL AND TX WILL NEED LTAC UPDATED FAMILY WILL FOLLOW DONI GARCIA MD Aug 17, 2019 13:45
[2019-08-17] MEDS: TPN PER PHARMACY MC PRN (13:50)
--- NOTE | 2019-08-17 16:15 | NUR ---
SS following up with discharge planning. SS reviewed pt chart and discussed with pt RN. SS has made attempts to contact pt's daughters. SS received no response from [employer]. SS received phone contact from pt's daughter, Norma. She reported that [employer] has asked her to communicate with SS. Norma reported that she can be reached at her work number, . Norma reported that they have Courtship and Guardianship papers now for pt. She reported that she would e-mail documents to SS. SS discussed pt being over income for Medicaid. Pt's daughter reported understanding that without insurance pt cannot be placed in a facility. Pt's daughter requesting that hospital assist them with applying for disability. SS discussed with Dr. Taylor and he is willing to complete physicians statement. SS discussed with [facility]. SS was notified that they will staff with there director as they are unsure if she has a qualifying diagnosis. SS will continue to follow for discharge planning.
[2019-08-17] MEDS ORDERED: TOTAL PARENTERAL NUTRITION IV SCH ×9 (22:00)
[2019-08-17] MEDS ORDERED: [UNRECOGNIZED DRUG - OTHER] IV SCH ×9 (22:00)
[2019-08-17] MEDS ORDERED: AMINO ACID IV SCH ×9 (22:00)
[2019-08-17] MEDS ORDERED: DEXTROSE 70% IV SCH ×9 (22:00)
[2019-08-18] VITALS (24 sets, daily range): BP systolic 87–171; BP diastolic 42–89
--- NOTE | 2019-08-18 00:30 | NUR ---
Pt has been on cpap trial since noon and is now back on vent settings for the night. Tolerated the cpap trial well.
[2019-08-18] MEDS: POLYVINYL ALCOHOL 1.4% OPHTH SOLUTION 15ML BOTTLE. OU PRN ×2 (01:04→08:16)
[2019-08-18] MEDS: IV NORMAL SALINE 1000ML BAG 1,000 ML IV SCH ×2 (01:06→13:01)
[2019-08-18] MEDS: DEXMEDETOMIDINE 400 MCG in IV NORMAL SALINE 100ML 96 ML IV PRN ×6 (01:07→21:17)
[2019-08-18] MEDS: INSULIN LISPRO 300 UNITS/3 ML VIAL. SQ SCH ×4 (06:00→17:29)
[2019-08-18] MEDS: MEROPENEM 1 GM in IV NORMAL SALINE 100ML 100 ML IV SCH ×3 (06:23→21:33)
--- NOTE | 2019-08-18 07:15 | NUR ---
REY Dodge and I discussed pulling the central line and inserting a PICC this morning. Patient mouthed several questions and then stated she would like the PICC put in. She is aware that some pain is involved but she said that the pain would only be temporary. Verbal consent given. Patient has been very appropriate in her questions and answers all shift.
--- NOTE | 2019-08-18 07:52 | PDOC ---
PROGRESS NOTES Chief Complaint Chief Complaint Acute hypoxic Respiratory failure requiring mechanical ventilation (on vent since 07/10) Tracheostomy bilateral pleural effusions/pulm edema Sepsis Severe Acute gallstone pancreatitis (not a surgical candidate at this time) with necrosis Acute kidney failure now requiring dialysis Salpingitis Gallstones (Calculus of gallbladder with acute cholecystitis without obstruction) HTN Leukocytosis Hypoxia Uterine fibroid Intractable pain Intractable nausea Covid 19 negative. Acute on chronic anemia EEG: No seizure activity ESRD on HD Hyperglycemia History of Present Illness History of Present Illness Ms Diaz is a 48yo F w/ PMHx HTN, prediabetes who presented to the emergency room with complaints of abdominal pain on 07/04/2019. Found with Lipase 78641, AST 401, ALT 249, Bilirubin 1.4. CT abdomen confirms pancreatic inflammation, peripancreatic fluid and inflammatory changes around the pancreas consistent with pancreatitis. Cholelithiasis and 1.4cm uterine fibroid as well as possible left salpingitis. Admitted for further care GI, General surgery, ID, Pulm consulted. 07/04: PICC placed per IR. Renal US negative. Started on levophed. Repeat CT abdomen w/ necrosis; 07/05: Dialysis catheter per nephrology; 07/06: On BiPAP; 07/07: BiPAP, dialysis; 07/08: Overnight Tmax 101.7 , still on BiPAP FiO2 40%, still on low dose Levophed gtt, TPN initiated. On dialysis 07/24: Tracheostomy; 07/30: S/p tracheostomy on vent spontaneous respirations with 5 of pressure support 35% FiO2, rectal tube and a Lind, off pressors; 08/01:Still on vent via trach. Removed PICC and CVC LIJ and replaced. CT chest/abd/pelvis with bilateral pleural effusion and ascites. 08/02: Renal function stable. Still on vent. More interactive today. Miming wish for food. Plan discussed for thoracentesis/paracentesis with daughters today. They were under impression patient was doing worse due to a miscommunication which has been clarified over the phone. 4.3L removed. 08/04: Febrile overnight 101.8F. More interactive, still on vent. Asking for ice by miming; 08/05: Afebrile overnight. TMax last 24 hours 100.6F. Hb 7.1. Interactive when awake. 08/09: Transfusion 1u PRBC (6U total since admit) 08/10-08/13: TPN and precedex, vent. 08/14: Tmax 101F overnight. Hb 8.2. HD cath out since 08/11. Alert. On vent SIMV 35% FiO2. Surgery: ex-lap, no ronel or pancreatic necrosectomy 2/2 profound inflammation. 08/15: Seen POD #1. Afebrile overnight. BUN 62. CBC WNL today.Remains on vent via trach, TPN. Able to point today and indicate she wishes her daughters and Jamaal to be involved in her care. 08/16: Hb 7.4, Na 151. Remains on vent via trach, TPN. off HD for now. Not tolerating trach shield well. Negative US for UE DVT. More relaxed today. Has some increase in UOP. Tolerating vent well. She is requesting to eat and drink via writing. T max 100F 24 hours ago. Right PICC placed Plan: Cont vent weaning Trach shield during day if ok with pulm. Would recommend ABG after 4 hours to r/o CO2 retention, however and still vent overnight Remove IJ. Vitals Vitals Vital Signs Date Time Temp Pulse Resp B/P (MAP) Pulse Ox O2 Delivery O2 Flow Rate FiO2 08/18/19 07:00 78 19 87/49 (62) 98 Ventilator 08/18/19 04:00 97.6 97.6 Physical Exam Physical Exam GENERAL: Propped up in bed, sedated weak appearing HEENT: Pupils equal, + NGT, oral cavity dry NECK: Trach/vent LUNGS: rhonchi HEART: S1, S2, regular ABDOMEN: Distended, hypoactive BS, drain placement (08/14 ) : Lind (08/01) EXTREMITIES: Generalized edema, no cyanosis, SCDs bilaterally DERMATOLOGIC: Warm and dry. No generalized rash. CENTRAL NERVOUS SYSTEM: Extremely weak, nods to few simple questions HDC has been removed LIJ (08/01) clean General: Alert, Cooperative, No acute distress Heart: Regular rate, Normal S1, Other (increased rate) Lungs: Crackles, Other (dimished in BLL nc at perrl nose clear neck trach site ok no lad no thyromegaly) Abdomen: Soft, No tenderness, Other (KAYLIN serous) Extremities: Other (ANASARCA) Skin: Other (mottling noted to extremities ) Labs LABS Laboratory Tests Test 08/17/19 08:00 08/17/19 12:25 08/17/19 17:07 08/18/19 00:34 White Blood Count 14.5 x10^3/uL (4.0-11.0) Red Blood Count 2.89 x10^6/uL (3.50-5.40) Hemoglobin 8.5 g/dL (12.0-15.5) Hematocrit 26.9 % (36.0-47.0) Mean Corpuscular Volume 93 fL (79-100) Mean Corpuscular Hemoglobin 29 pg (25-35) Mean Corpuscular Hemoglobin Concent 32 g/dL (31-37) Red Cell Distribution Width 18.5 % (11.5-14.5) Platelet Count 446 x10^3/uL (140-400) Glucose (Fingerstick) 125 mg/dL (70-99) 133 mg/dL (70-99) 112 mg/dL (70-99) Assessment and Plan Assessmemt and Plan Problems Medical Problems: (1) Acute pancreatitis Status: Acute (2) Cholelithiasis Status: Acute Comment Review of Relevant I have reviewed the following items kolby (where applicable) has been applied. Labs Laboratory Tests Test 08/16/19 12:08 08/16/19 18:44 08/16/19 23:40 08/17/19 06:10 Glucose (Fingerstick) 148 mg/dL (70-99) 116 mg/dL (70-99) 94 mg/dL (70-99) White Blood Count 10.4 x10^3/uL (4.0-11.0) Red Blood Count 2.51 x10^6/uL (3.50-5.40) Hemoglobin 7.4 g/dL (12.0-15.5) Hematocrit 22.9 % (36.0-47.0) Mean Corpuscular Volume 91 fL (79-100) Mean Corpuscular Hemoglobin 29 pg (25-35) Mean Corpuscular Hemoglobin Concent 32 g/dL (31-37) Red Cell Distribution Width 18.4 % (11.5-14.5) Platelet Count 439 x10^3/uL (140-400) Sodium Level 151 mmol/L (136-145) Potassium Level 3.6 mmol/L (3.5-5.1) Chloride Level 114 mmol/L (98-107) Carbon Dioxide Level 29 mmol/L (21-32) Anion Gap 8 (6-14) Blood Urea Nitrogen 58 mg/dL (7-20) Creatinine 1.0 mg/dL (0.6-1.0) Estimated GFR (Cockcroft-Gault) 58.9 Glucose Level 104 mg/dL (70-99) Calcium Level 8.2 mg/dL (8.5-10.1) Test 08/17/19 06:14 08/17/19 08:00 08/17/19 12:25 08/17/19 17:07 Glucose (Fingerstick) 87 mg/dL (70-99) 125 mg/dL (70-99) 133 mg/dL (70-99) White Blood Count 14.5 x10^3/uL (4.0-11.0) Red Blood Count 2.89 x10^6/uL (3.50-5.40) Hemoglobin 8.5 g/dL (12.0-15.5) Hematocrit 26.9 % (36.0-47.0) Mean Corpuscular Volume 93 fL (79-100) Mean Corpuscular Hemoglobin 29 pg (25-35) Mean Corpuscular Hemoglobin Concent 32 g/dL (31-37) Red Cell Distribution Width 18.5 % (11.5-14.5) Platelet Count 446 x10^3/uL (140-400) Test 08/18/19 00:34 Glucose (Fingerstick) 112 mg/dL (70-99) Laboratory Tests Test 08/17/19 08:00 08/17/19 12:25 08/17/19 17:07 08/18/19 00:34 White Blood Count 14.5 x10^3/uL (4.0-11.0) Red Blood Count 2.89 x10^6/uL (3.50-5.40) Hemoglobin 8.5 g/dL (12.0-15.5) Hematocrit 26.9 % (36.0-47.0) Mean Corpuscular Volume 93 fL (79-100) Mean Corpuscular Hemoglobin 29 pg (25-35) Mean Corpuscular Hemoglobin Concent 32 g/dL (31-37) Red Cell Distribution Width 18.5 % (11.5-14.5) Platelet Count 446 x10^3/uL (140-400) Glucose (Fingerstick) 125 mg/dL (70-99) 133 mg/dL (70-99) 112 mg/dL (70-99) Microbiology 08/03/19 Aerobic and Anaerobic Culture - Final, Complete 08/03/19 Anaerobic Culture Result 1 (ALEXANDRA) - Final, Complete 08/03/19 Aerobic Culture - Final, Complete 08/03/19 Aerobic Culture Result 1 (ALEXANDRA) - Final, Complete 08/03/19 Gram Stain - Final, Complete 08/03/19 Gram Stain Result 1 (ALEXANDRA) - Final, Complete 08/03/19 Gram Stain Result 2 (ALEXANDRA) - Final, Complete 08/02/19 Blood Culture - Final, Complete NO GROWTH AFTER 5 DAYS 07/31/19 Urine Culture - Final, Complete 07/31/19 Urine Culture Result 1 (ALEXANDRA) - Final, Complete Medications Current Medications Sodium Chloride 1,000 ml @ 1,000 mls/hr Q1H IV Last administered on 07/04/19at 03:00; Start 07/04/19 at 03:00; Stop 07/04/19 at 03:59; Status DC Ondansetron HCl (Zofran) 4 mg 1X ONCE IVP Last administered on 07/04/19at 03:27; Start 07/04/19 at 03:00; Stop 07/04/19 at 03:01; Status DC Morphine Sulfate (Morphine Sulfate) 4 mg 1X ONCE IV ; Start 07/04/19 at 03:00; Stop 07/04/19 at 03:01; Status Cancel Ketorolac Tromethamine (Toradol 30mg Vial) 30 mg 1X ONCE IV Last administered on 07/04/19at 02:54; Start 07/04/19 at 03:00; Stop 07/04/19 at 03:01; Status DC Fentanyl Citrate (Fentanyl 2ml Vial) 25 mcg 1X ONCE IVP Last administered on 07/04/19at 03:23; Start 07/04/19 at 03:30; Stop 07/04/19 at 03:31; Status DC Fentanyl Citrate (Fentanyl 2ml Vial) 100 mcg STK-MED ONCE .ROUTE ; Start 07/04/19 at 03:18; Stop 07/04/19 at 03:18; Status DC Iohexol (Omnipaque 350 Mg/ml) 90 ml 1X ONCE IV Last administered on 07/04/19at 03:25; Start 07/04/19 at 03:30; Stop 07/04/19 at 03:31; Status DC Info (CONTRAST GIVEN -- Rx MONITORING) 1 each PRN DAILY PRN MC SEE COMMENTS; Start 07/04/19 at 03:30; Stop 07/06/19 at 03:29; Status DC Hydromorphone HCl (Dilaudid) 0.5 mg 1X ONCE IV Last administered on 07/04/19at 03:55; Start 07/04/19 at 04:30; Stop 07/04/19 at 04:32; Status DC Ondansetron HCl (Zofran) 4 mg PRN Q8HRS PRN IV NAUSEA/VOMITING 1ST CHOICE; Start 07/04/19 at 05:00; Stop 07/04/19 at 09:27; Status DC Morphine Sulfate (Morphine Sulfate) 2 mg PRN Q2HR PRN IV SEVERE PAIN 7-10 Last administered on 07/05/19at 12:26; Start 07/04/19 at 05:00; Stop 07/05/19 at 14:15; Status DC Sodium Chloride 1,000 ml @ 125 mls/hr Q8H IV Last administered on 07/04/19at 20:56; Start 07/04/19 at 05:00; Stop 07/05/19 at 04:59; Status DC Hydromorphone HCl (Dilaudid) 0.5 mg PRN Q3HRS PRN IV SEVERE PAIN 7-10 Last administered on 07/05/19at 10:06; Start 07/04/19 at 05:00; Stop 07/05/19 at 12:01; Status DC Piperacillin Sod/ Tazobactam Sod 4.5 gm/Sodium Chloride 100 ml @ 200 mls/hr 1X ONCE IV Last administered on 07/04/19at 05:44; Start 07/04/19 at 06:00; Stop 07/04/19 at 06:29; Status DC Ondansetron HCl (Zofran) 4 mg PRN Q4HRS PRN IV NAUSEA/VOMITING 1ST CHOICE Last administered on 08/12/19at 11:01; Start 07/04/19 at 09:30 Insulin Human Lispro (HumaLOG) 0-9 UNITS Q6HRS SQ Last administered on 08/16/19at 08:42; Start 07/04/19 at 09:30 Dextrose (Dextrose 50%-Water Syringe) 12.5 gm PRN Q15MIN PRN IV SEE COMMENTS; Start 07/04/19 at 09:30 Pantoprazole Sodium (PROTONIX VIAL for IV PUSH) 40 mg DAILYAC IVP Last administered on 08/17/19at 07:39; Start 07/04/19 at 11:30 Prochlorperazine Edisylate (Compazine) 10 mg PRN Q6HRS PRN IV NAUSEA/VOMITING, 2nd CHOICE Last administered on 08/17/19at 14:59; Start 07/04/19 at 17:45 Atenolol (Tenormin) 100 mg DAILY PO ; Start 07/05/19 at 09:00; Stop 07/04/19 at 20:08; Status DC Metoprolol Tartrate (Lopressor Vial) 2.5 mg Q6HRS IVP Last administered on 07/05/19at 05:51; Start 07/04/19 at 20:15; Stop 07/05/19 at 10:02; Status DC Metoprolol Tartrate (Lopressor Vial) 5 mg Q6HRS IVP Last administered on 07/14/19at 00:12; Start 07/05/19 at 10:15; Stop 07/16/19 at 08:48; Status DC Hydromorphone HCl (Dilaudid) 1 mg PRN Q3HRS PRN IV SEVERE PAIN 7-10 Last administered on 07/11/19at 05:13; Start 07/05/19 at 12:00; Stop 07/19/19 at 00:25; Status DC Lidocaine HCl (Buffered Lidocaine 1%) 3 ml STK-MED ONCE .ROUTE ; Start 07/05/19 at 12:55; Stop 07/05/19 at 12:56; Status DC Albumin Human 500 ml @ 125 mls/hr 1X ONCE IV Last administered on 07/05/19at 14:33; Start 07/05/19 at 14:30; Stop 07/05/19 at 18:32; Status DC Norepinephrine Bitartrate 8 mg/ Dextrose 258 ml @ 17.299 mls/ hr CONT PRN IV PER PROTOCOL Last administered on 08/02/19at 12:48; Start 07/05/19 at 15:30; Stop 08/05/19 at 09:19; Status DC Sodium Chloride 1,000 ml @ 125 mls/hr Q8H IV Last administered on 07/05/19at 21:04; Start 07/05/19 at 16:00; Stop 07/06/19 at 02:42; Status DC Albumin Human 500 ml @ 125 mls/hr PRN BID PRN IV After every 2L NSS & BP < 90mm Last administered on 07/20/19at 14:21; Start 07/05/19 at 16:00 Iohexol (Omnipaque 300 Mg/ml) 60 ml 1X ONCE IV Last administered on 07/05/19at 17:20; Start 07/05/19 at 17:00; Stop 07/05/19 at 17:01; Status DC Info (CONTRAST GIVEN -- Rx MONITORING) 1 each PRN DAILY PRN MC SEE COMMENTS; Start 07/05/19 at 17:00; Stop 07/07/19 at 16:59; Status DC Meropenem 1 gm/ Sodium Chloride 100 ml @ 200 mls/hr Q8HRS IV Last administered on 07/06/19at 05:45; Start 07/05/19 at 20:00; Stop 07/06/19 at 08:48; Status DC Furosemide (Lasix) 40 mg 1X ONCE IVP Last administered on 07/05/19at 22:12; Start 07/05/19 at 22:30; Stop 07/05/19 at 22:31; Status DC Calcium Chloride 1000 mg/Sodium Chloride 110 ml @ 220 mls/hr 1X ONCE IV Last administered on 07/05/19at 22:11; Start 07/05/19 at 22:30; Stop 07/05/19 at 22:59; Status DC Albuterol Sulfate (Ventolin Neb Soln) 2.5 mg 1X ONCE NEB Last administered on 07/06/19at 00:56; Start 07/05/19 at 22:30; Stop 07/05/19 at 22:31; Status DC Insulin Human Regular (HumuLIN R VIAL) 5 unit 1X ONCE IV Last administered on 07/05/19at 22:14; Start 07/05/19 at 22:30; Stop 07/05/19 at 22:31; Status DC Magnesium Sulfate 50 ml @ 25 mls/hr 1X ONCE IV Last administered on 07/06/19at 02:57; Start 07/06/19 at 03:00; Stop 07/06/19 at 04:59; Status DC Calcium Gluconate 1000 mg/Sodium Chloride 110 ml @ 220 mls/hr 1X ONCE IV Last administered on 07/06/19at 02:46; Start 07/06/19 at 03:00; Stop 07/06/19 at 03:29; Status DC Sodium Chloride 1,000 ml @ 200 mls/hr Q5H IV Last administered on 07/06/19at 02:46; Start 07/06/19 at 03:00; Stop 07/06/19 at 10:21; Status DC Calcium Gluconate 1000 mg/Sodium Chloride 110 ml @ 220 mls/hr 1X ONCE IV Last administered on 07/06/19at 03:21; Start 07/06/19 at 03:30; Stop 07/06/19 at 03:59; Status DC Sodium Bicarbonate 50 meq/Sodium Chloride 1,050 ml @ 75 mls/hr Q14H IV Last administered on 07/10/19at 21:10; Start 07/06/19 at 07:30; Stop 07/11/19 at 10:28; Status DC Calcium Gluconate 2000 mg/Sodium Chloride 120 ml @ 220 mls/hr 1X ONCE IV Last administered on 07/06/19at 09:05; Start 07/06/19 at 07:30; Stop 07/06/19 at 08:02; Status DC Lidocaine HCl (Xylocaine-Mpf 1% 2ml Vial) 2 ml STK-MED ONCE .ROUTE ; Start 07/06/19 at 08:47; Stop 07/06/19 at 08:47; Status DC Meropenem 500 mg/ Sodium Chloride 50 ml @ 100 mls/hr Q12HR IV Last administered on 07/11/19at 21:01; Start 07/06/19 at 18:00; Stop 07/12/19 at 07:58; Status DC Lidocaine HCl (Buffered Lidocaine 1%) 3 ml STK-MED ONCE .ROUTE ; Start 07/06/19 at 09:46; Stop 07/06/19 at 09:46; Status DC Lidocaine HCl (Buffered Lidocaine 1%) 6 ml 1X ONCE INJ Last administered on 07/06/19at 10:26; Start 07/06/19 at 10:15; Stop 07/06/19 at 10:16; Status DC Info (Tpn Per Pharmacy) 1 each PRN DAILY PRN MC SEE COMMENTS Last administered on 08/17/19at 13:50; Start 07/06/19 at 12:00 Sodium Chloride 1,000 ml @ 1,000 mls/hr Q1H PRN IV hypotension; Start 07/06/19 at 12:07; Stop 07/06/19 at 18:06; Status DC Diphenhydramine HCl (Benadryl) 25 mg 1X PRN PRN IV ITCHING; Start 07/06/19 at 12:15; Stop 07/07/19 at 12:14; Status DC Diphenhydramine HCl (Benadryl) 25 mg 1X PRN PRN IV ITCHING; Start 07/06/19 at 12:15; Stop 07/07/19 at 12:14; Status DC Sodium Chloride 1,000 ml @ 400 mls/hr Q2H30M PRN IV PATENCY; Start 07/06/19 at 12:07; Stop 07/07/19 at 00:06; Status DC Info (PHARMACY MONITORING -- do not chart) 1 each PRN DAILY PRN MC SEE COMMENTS; Start 07/06/19 at 12:15; Stop 07/08/19 at 08:13; Status DC Sodium Chloride 90 meq/Calcium Gluconate 10 meq/ Multivitamins 10 ml/Chromium/ Copper/Manganese/ Seleni/Zn 1 ml/ Total Parenteral Nutrition/Amino Acids/Dextrose/ Fat Emulsion Intravenous 55.005 ml @ 2.292 mls/hr TPN CONT IV ; Start 07/06/19 at 22:00; Stop 07/06/19 at 12:33; Status DC Info (Tpn Per Pharmacy) 1 each PRN DAILY PRN MC SEE COMMENTS; Start 07/06/19 at 12:30; Status UNV Sodium Chloride 90 meq/Calcium Gluconate 10 meq/ Multivitamins 10 ml/Chromium/ Copper/Manganese/ Seleni/Zn 0.5 ml/ Total Parenteral Nutrition/Amino Acids/Dextrose/ Fat Emulsion Intravenous 1,512 ml @ 63 mls/hr TPN CONT IV Last administered on 07/06/19at 22:06; Start 07/06/19 at 22:00; Stop 07/07/19 at 21:59; Status DC Calcium Carbonate/ Glycine (Tums) 500 mg PRN AFTMEALHC PRN PO INDIGESTION; Start 07/06/19 at 17:45 Calcium Gluconate (Calcium Gluconate) 2,000 mg 1X ONCE IVP Last administered on 07/07/19at 02:19; Start 07/07/19 at 02:15; Stop 07/07/19 at 02:16; Status DC Calcium Chloride 3000 mg/Sodium Chloride 1,030 ml @ 50 mls/hr [id number] IV Last administered on 07/09/19at 02:17; Start 07/07/19 at 08:00; Stop 07/09/19 at 15:23; Status DC Lorazepam (Ativan Inj) 1 mg PRN Q4HRS PRN IVP ANXIETY / AGITATION, 2nd choic Last administered on 08/05/19at 03:51; Start 07/07/19 at 09:00; Stop 08/05/19 at 09:19; Status DC Sodium Chloride 1,000 ml @ 1,000 mls/hr Q1H PRN IV hypotension; Start 07/07/19 at 08:56; Stop 07/07/19 at 14:55; Status DC Albumin Human 200 ml @ 200 mls/hr 1X PRN PRN IV Hypotension; Start 07/07/19 at 09:00; Stop 07/07/19 at 14:59; Status DC Diphenhydramine HCl (Benadryl) 25 mg 1X PRN PRN IV ITCHING; Start 07/07/19 at 09:00; Stop 07/08/19 at 08:59; Status DC Diphenhydramine HCl (Benadryl) 25 mg 1X PRN PRN IV ITCHING; Start 07/07/19 at 09:00; Stop 07/08/19 at 08:59; Status DC Sodium Chloride 1,000 ml @ 400 mls/hr Q2H30M PRN IV PATENCY; Start 07/07/19 at 08:56; Stop 07/07/19 at 20:55; Status DC Info (PHARMACY MONITORING -- do not chart) 1 each PRN DAILY PRN MC SEE COMMENTS; Start 07/07/19 at 09:00; Status UNV Info (PHARMACY MONITORING -- do not chart) 1 each PRN DAILY PRN MC SEE COMMENTS; Start 07/07/19 at 09:00; Stop 07/08/19 at 08:13; Status DC Digoxin (Lanoxin) 500 mcg 1X ONCE IV Last administered on 07/07/19at 10:04; Start 07/07/19 at 10:00; Stop 07/07/19 at 10:01; Status DC Digoxin (Lanoxin) 125 mcg 1X ONCE IV Last administered on 07/07/19at 17:10; Start 07/07/19 at 18:00; Stop 07/07/19 at 18:01; Status DC Magnesium Sulfate 100 ml @ 25 mls/hr 1X ONCE IV Last administered on 07/07/19at 12:48; Start 07/07/19 at 13:00; Stop 07/07/19 at 16:59; Status DC Sodium Chloride 90 meq/Magnesium Sulfate 10 meq/ Calcium Gluconate 20 meq/ Multivitamins 10 ml/Chromium/ Copper/Manganese/ Seleni/Zn 0.5 ml/ Total Parenteral Nutrition/Amino Acids/Dextrose/ Fat Emulsion Intravenous 1,512 ml @ 63 mls/hr TPN CONT IV Last administered on 07/07/19at 22:25; Start 07/07/19 at 22:00; Stop 07/08/19 at 21:59; Status DC Sodium Chloride 1,000 ml @ 1,000 mls/hr Q1H PRN IV hypotension; Start 07/08/19 at 08:05; Stop 07/08/19 at 14:04; Status DC Albumin Human 200 ml @ 200 mls/hr 1X ONCE IV Last administered on 07/08/19at 08:57; Start 07/08/19 at 08:15; Stop 07/08/19 at 09:14; Status DC Diphenhydramine HCl (Benadryl) 25 mg 1X PRN PRN IV ITCHING; Start 07/08/19 at 08:15; Stop 07/09/19 at 08:14; Status DC Diphenhydramine HCl (Benadryl) 25 mg 1X PRN PRN IV ITCHING; Start 07/08/19 at 08:15; Stop 07/09/19 at 08:14; Status DC Sodium Chloride 1,000 ml @ 400 mls/hr Q2H30M PRN IV PATENCY; Start 07/08/19 at 08:05; Stop 07/08/19 at 20:04; Status DC Info (PHARMACY MONITORING -- do not chart) 1 each PRN DAILY PRN MC SEE COMMENTS; Start 07/08/19 at 08:15; Stop 07/12/19 at 07:57; Status DC Sodium Chloride 90 meq/Potassium Chloride 15 meq/ Potassium Phosphate 10 mmol/ Magnesium Sulfate 10 meq/Calcium Gluconate 20 meq/ Multivitamins 10 ml/Chromium/ Copper/Manganese/ Seleni/Zn 0.5 ml/ Total Parenteral Nutrition/Amino Acids/Dextrose/ Fat Emulsion Intravenous 1,512 ml @ 63 mls/hr TPN CONT IV Last administered on 07/08/19at 21:01; Start 07/08/19 at 22:00; Stop 07/09/19 at 21:59; Status DC Potassium Chloride/Water 100 ml @ 100 mls/hr 1X ONCE IV Last administered on 07/08/19at 14:09; Start 07/08/19 at 14:00; Stop 07/08/19 at 14:59; Status DC Benzocaine (Hurricaine One) 1 spray 1X ONCE MM Last administered on 07/08/19at 16:38; Start 07/08/19 at 14:30; Stop 07/08/19 at 14:31; Status DC Lidocaine HCl (Glydo (Lidocaine) Jelly) 1 ramu 1X ONCE MM Last administered on 07/08/19at 16:38; Start 07/08/19 at 14:30; Stop 07/08/19 at 14:31; Status DC Linezolid/Dextrose 300 ml @ 300 mls/hr Q12HR IV Last administered on 07/14/19at 21:04; Start 07/08/19 at 20:00; Stop 07/15/19 at 07:50; Status DC Acetaminophen (Tylenol) 650 mg PRN Q6HRS PRN PO MILD PAIN / TEMP; Start 07/09/19 at 03:30; Stop 07/09/19 at 03:36; Status DC Acetaminophen (Tylenol) 650 mg PRN Q6HRS PRN PEG MILD PAIN / TEMP Last administered on 08/04/19at 19:56; Start 07/09/19 at 03:36 Sodium Chloride 1,000 ml @ 1,000 mls/hr Q1H PRN IV hypotension; Start 07/09/19 at 07:50; Stop 07/09/19 at 13:49; Status DC Albumin Human 200 ml @ 200 mls/hr 1X PRN PRN IV Hypotension; Start 07/09/19 at 08:00; Stop 07/09/19 at 13:59; Status DC Sodium Chloride (Normal Saline Flush) 10 ml 1X PRN PRN IV AP catheter pack; Start 07/09/19 at 08:00; Stop 07/10/19 at 07:59; Status DC Sodium Chloride (Normal Saline Flush) 10 ml 1X PRN PRN IV SCR[employer] CR[employer]PERATOR catheter pack; Start 07/09/19 at 08:00; Stop 07/10/19 at 07:59; Status DC Sodium Chloride 1,000 ml @ 400 mls/hr Q2H30M PRN IV PATENCY; Start 07/09/19 at 07:50; Stop 07/09/19 at 19:49; Status DC Info (PHARMACY MONITORING -- do not chart) 1 each PRN DAILY PRN MC SEE COMMENTS; Start 07/09/19 at 08:00; Status UNV Info (PHARMACY MONITORING -- do not chart) 1 each PRN DAILY PRN MC SEE COMMENTS; Start 07/09/19 at 08:00; Stop 07/11/19 at 08:25; Status DC Sodium Chloride 90 meq/Potassium Chloride 15 meq/ Potassium Phosphate 10 mmol/ Magnesium Sulfate 10 meq/Calcium Gluconate 20 meq/ Multivitamins 10 ml/Chromium/ Copper/Manganese/ Seleni/Zn 0.5 ml/ Total Parenteral Nutrition/Amino Acids/Dextrose/ Fat Emulsion Intravenous 1,512 ml @ 63 mls/hr TPN CONT IV Last administered on 07/09/19at 20:57; Start 07/09/19 at 22:00; Stop 07/10/19 at 21:59; Status DC Sodium Chloride 90 meq/Potassium Chloride 15 meq/ Potassium Phosphate 15 mmol/ Magnesium Sulfate 10 meq/Calcium Gluconate 20 meq/ Multivitamins 10 ml/Chromium/ Copper/Manganese/ Seleni/Zn 0.5 ml/ Total Parenteral Nutrition/Amino Acids/Dextrose/ Fat Emulsion Intravenous 1,512 ml @ 63 mls/hr TPN CONT IV ; Start 07/10/19 at 22:00; Stop 07/10/19 at 14:16; Status DC Sodium Chloride 90 meq/Potassium Chloride 15 meq/ Potassium Phosphate 15 mmol/ Magnesium Sulfate 10 meq/Calcium Gluconate 20 meq/ Multivitamins 10 ml/Chromium/ Copper/Manganese/ Seleni/Zn 0.5 ml/ Total Parenteral Nutrition/Amino Acids/Dextrose/ Fat Emulsion Intravenous 1,200 ml @ 50 mls/hr TPN CONT IV ; S tart 07/10/19 at 22:00; Stop 07/10/19 at 14:17; Status DC Sodium Chloride 90 meq/Potassium Chloride 15 meq/ Potassium Phosphate 10 mmol/ Magnesium Sulfate 10 meq/Calcium Gluconate 20 meq/ Multivitamins 10 ml/Chromium/ Copper/Manganese/ Seleni/Zn 0.5 ml/ Total Parenteral Nutrition/Amino Acids/Dextrose/ Fat Emulsion Intravenous 1,200 ml @ 50 mls/hr TPN CONT IV Last administered on 07/10/19at 23:29; Start 07/10/19 at 22:00; Stop 07/11/19 at 21:59; Status DC Sodium Chloride 1,000 ml @ 1,000 mls/hr Q1H PRN IV hypotension; Start 07/11/19 at 07:28; Stop 07/11/19 at 13:27; Status DC Albumin Human 200 ml @ 200 mls/hr 1X ONCE IV Last administered on 07/11/19at 08:51; Start 07/11/19 at 07:30; Stop 07/11/19 at 08:29; Status DC Diphenhydramine HCl (Benadryl) 25 mg 1X PRN PRN IV ITCHING; Start 07/11/19 at 07:30; Stop 07/12/19 at 07:29; Status DC Diphenhydramine HCl (Benadryl) 25 mg 1X PRN PRN IV ITCHING; Start 07/11/19 at 07:30; Stop 07/12/19 at 07:29; Status DC Sodium Chloride 1,000 ml @ 400 mls/hr Q2H30M PRN IV PATENCY; Start 07/11/19 at 07:28; Stop 07/11/19 at 19:27; Status DC Info (PHARMACY MONITORING -- do not chart) 1 each PRN DAILY PRN MC SEE COMMENTS; Start 07/11/19 at 07:30; Stop 07/22/19 at 13:01; Status DC Metronidazole 100 ml @ 100 mls/hr Q6HRS IV Last administered on 07/27/19at 06:26; Start 07/11/19 at 08:30; Stop 07/27/19 at 09:58; Status DC Micafungin Sodium 100 mg/Dextrose 100 ml @ 100 mls/hr Q24H IV Last administered on 08/17/19at 08:43; Start 07/11/19 at 09:00 Propofol 0 ml @ As Directed STK-MED ONCE IV ; Start 07/11/19 at 07:53; Stop 07/11/19 at 07:53; Status DC Etomidate (Amidate) 20 mg STK-MED ONCE IV ; Start 07/11/19 at 07:53; Stop 07/11/19 at 07:54; Status DC Midazolam HCl (Versed) 5 mg STK-MED ONCE .ROUTE ; Start 07/11/19 at 07:57; Stop 07/11/19 at 07:57; Status DC Fentanyl Citrate 30 ml @ 0 mls/hr CONT PRN IV SEE PROTOCOL Last administered on 08/05/19at 06:12; Start 07/11/19 at 08:15; Stop 08/05/19 at 09:19; Status DC Artificial Tears (Artificial Tears) 1 drop PRN Q1HR PRN OU DRY EYE, 1st choice; Start 07/11/19 at 08:15; Stop 08/17/19 at 05:31; Status DC Midazolam HCl 50 mg/Sodium Chloride 50 ml @ 0 mls/hr CONT PRN IV SEE PROTOCOL Last administered on 07/14/19at 22:39; Start 07/11/19 at 08:15; Stop 07/16/19 at 15:59; Status DC Etomidate (Amidate) 8 mg 1X ONCE IV Last administered on 07/11/19at 08:33; Start 07/11/19 at 08:30; Stop 07/11/19 at 08:31; Status DC Succinylcholine Chloride (Anectine) 120 mg 1X ONCE IV Last administered on 07/11/19at 08:34; Start 07/11/19 at 08:30; Stop 07/11/19 at 08:31; Status DC Midazolam HCl (Versed) 5 mg 1X ONCE IV ; Start 07/11/19 at 08:30; Stop 07/11/19 at 08:31; Status DC Potassium Chloride 15 meq/ Bicarbonate Dialysis Soln w/ out KCl 5,007.5 ml @ 1,000 mls/ hr Q5H1M IV Last administered on 07/12/19at 11:11; Start 07/11/19 at 12:00; Stop 07/12/19 at 11:15; Status DC Potassium Chloride 15 meq/ Bicarbonate Dialysis Soln w/ out KCl 5,007.5 ml @ 1,000 mls/ hr Q5H1M IV Last administered on 07/12/19at 11:12; Start 07/11/19 at 12:00; Stop 07/12/19 at 11:17; Status DC Potassium Chloride 15 meq/ Bicarbonate Dialysis Soln w/ out KCl 5,007.5 ml @ 1,000 mls/ hr Q5H1M IV Last administered on 07/12/19at 11:11; Start 07/11/19 at 12:00; Stop 07/12/19 at 11:19; Status DC Sodium Chloride 90 meq/Potassium Chloride 15 meq/ Potassium Phosphate 10 mmol/ Magnesium Sulfate 10 meq/Calcium Gluconate 20 meq/ Multivitamins 10 ml/Chromium/ Copper/Manganese/ Seleni/Zn 0.5 ml/ Total Parenteral Nutrition/Amino Acids/Dextrose/ Fat Emulsion Intravenous 1,400 ml @ 58.333 mls/ hr TPN CONT IV Last administered on 07/11/19at 21:42; Start 07/11/19 at 22:00; Stop 07/12/19 at 21:59; Status DC Heparin Sodium (Porcine) (Heparin Sodium) 5,000 unit Q8HRS SQ Last administered on 07/16/19at 05:55; Start 07/11/19 at 15:00; Stop 07/16/19 at 13:28; Status DC Meropenem 500 mg/ Sodium Chloride 50 ml @ 100 mls/hr Q6HRS IV Last administered on 07/13/19at 06:00; Start 07/12/19 at 09:00; Stop 07/13/19 at 07:29; Status DC Potassium Phosphate 20 mmol/ Sodium Chloride 106.6667 ml @ 51.667 m... 1X ONCE IV Last administered on 07/12/19at 11:22; Start 07/12/19 at 10:15; Stop 07/12/19 at 12:18; Status DC Acetaminophen (Tylenol Supp) 650 mg PRN Q6HRS PRN VT MILD PAIN / TEMP > 100.3'F Last administered on 08/15/19at 00:32; Start 07/12/19 at 10:30 Potassium Chloride/Water 100 ml @ 100 mls/hr Q1H IV Last administered on 07/12/19at 12:12; Start 07/12/19 at 11:00; Stop 07/12/19 at 12:59; Status DC Potassium Chloride 20 meq/ Bicarbonate Dialysis Soln w/ out KCl 5,010 ml @ 1,000 mls/hr Q5H1M IV Last administered on 07/13/19at 08:48; Start 07/12/19 at 12:00; Stop 07/13/19 at 13:03; Status DC Potassium Chloride 20 meq/ Bicarbonate Dialysis Soln w/ out KCl 5,010 ml @ 1,000 mls/hr Q5H1M IV Last administered on 07/17/19at 14:52; Start 07/12/19 at 11:30; Stop 07/17/19 at 19:59; Status DC Potassium Chloride 20 meq/ Bicarbonate Dialysis Soln w/ out KCl 5,010 ml @ 1,000 mls/hr Q5H1M IV Last administered on 07/17/19at 14:53; Start 07/12/19 at 11:30; Stop 07/17/19 at 19:59; Status DC Sodium Chloride 90 meq/Potassium Chloride 15 meq/ Potassium Phosphate 15 mmol/ Magnesium Sulfate 10 meq/Calcium Gluconate 15 meq/ Multivitamins 10 ml/Chromium/ Copper/Manganese/ Seleni/Zn 0.5 ml/ Total Parenteral Nutrition/Amino Acids/Dextrose/ Fat Emulsion Intravenous 1,400 ml @ 58.333 mls/ hr TPN CONT IV Last administered on 07/12/19at 22:17; Start 07/12/19 at 22:00; Stop 07/13/19 at 21:59; Status DC Cefepime HCl (Maxipime) 2 gm Q12HR IVP Last administered on 07/26/19at 20:56; Start 07/13/19 at 09:00; Stop 07/27/19 at 09:58; Status DC Daptomycin 500 mg/ Sodium Chloride 50 ml @ 100 mls/hr Q48H IV Last administered on 07/29/19at 09:57; Start 07/13/19 at 08:30; Stop 07/29/19 at 10:07; Status DC Lidocaine HCl (Buffered Lidocaine 1%) 3 ml 1X ONCE INJ Last administered on 07/13/19at 10:27; Start 07/13/19 at 10:30; Stop 07/13/19 at 10:31; Status DC Potassium Phosphate 20 mmol/ Sodium Chloride 106.6667 ml @ 51.667 m... 1X ONCE IV Last administered on 07/13/19at 12:51; Start 07/13/19 at 13:00; Stop 07/13/19 at 15:03; Status DC Sodium Chloride 90 meq/Potassium Chloride 15 meq/ Potassium Phosphate 18 mmol/ Magnesium Sulfate 8 meq/Calcium Gluconate 15 meq/ Multivitamins 10 ml/Chromium/ Copper/Manganese/ Seleni/Zn 0.5 ml/ Total Parenteral Nutrition/Amino Acids/Dextrose/ Fat Emulsion Intravenous 1,400 ml @ 58.333 mls/ hr TPN CONT IV Last administered on 07/13/19at 22:16; Start 07/13/19 at 22:00; Stop 07/14/19 at 21:59; Status DC Potassium Chloride 20 meq/ Bicarbonate Dialysis Soln w/ out KCl 5,010 ml @ 1,000 mls/hr Q5H1M IV Last administered on 07/17/19at 14:54; Start 07/13/19 at 16:00; Stop 07/17/19 at 19:59; Status DC Multi-Ingred Cream/Lotion/Oil/ Oint (Artificial Tears Eye Ointment) 1 ramu PRN Q1HR PRN OU DRY EYE, 2nd choice Last administered on 08/01/19at 08:19; Start 07/13/19 at 17:30 Sodium Chloride 90 meq/Potassium Chloride 15 meq/ Potassium Phosphate 18 mmol/ Magnesium Sulfate 8 meq/Calcium Gluconate 15 meq/ Multivitamins 10 ml/Chromium/ Copper/Manganese/ Seleni/Zn 0.5 ml/ Total Parenteral Nutrition/Amino Acids/Dextrose/ Fat Emulsion Intravenous 1,400 ml @ 58.333 mls/ hr TPN CONT IV Last administered on 07/14/19at 22:00; Start 07/14/19 at 22:00; Stop 07/15/19 at 21:59; Status DC Albumin Human 500 ml @ 125 mls/hr 1X ONCE IV ; Start 07/14/19 at 14:15; Stop 07/14/19 at 18:14; Status DC Sodium Chloride 90 meq/Potassium Chloride 15 meq/ Potassium Phosphate 18 mmol/ Magnesium Sulfate 8 meq/Calcium Gluconate 15 meq/ Multivitamins 10 ml/Chromium/ Copper/Manganese/ Seleni/Zn 0.5 ml/ Insulin Human Regular 10 unit/ Total Parenteral Nutrition/Amino Acids/Dextrose/ Fat Emulsion Intravenous 1,400 ml @ 58.333 mls/ hr TPN CONT IV Last administered on 07/15/19at 21:43; Start 07/15/19 at 22:00; Stop 07/16/19 at 21:59; Status DC Lidocaine HCl (Buffered Lidocaine 1%) 3 ml STK-MED ONCE .ROUTE ; Start 07/13/19 at 10:00; Stop 07/15/19 at 13:57; Status DC Midazolam HCl 100 mg/Sodium Chloride 100 ml @ 7 mls/hr CONT PRN IV SEE PROTOCOL Last administered on 07/27/19at 15:35; Start 07/16/19 at 16:00 Sodium Chloride 90 meq/Potassium Chloride 15 meq/ Potassium Phosphate 18 mmol/ Magnesium Sulfate 8 meq/Calcium Gluconate 15 meq/ Multivitamins 10 ml/Chromium/ Copper/Manganese/ Seleni/Zn 0.5 ml/ Insulin Human Regular 15 unit/ Total Parenteral Nutrition/Amino Acids/Dextrose/ Fat Emulsion Intravenous 1,400 ml @ 58.333 mls/ hr TPN CONT IV Last administered on 07/16/19at 20:34; Start 07/16/19 at 22:00; Stop 07/17/19 at 21:59; Status DC Info (Icu Electrolyte Protocol) 1 ea CONT PRN PRN MC PER PROTOCOL; Start 07/17/19 at 13:15 Sodium Chloride 90 meq/Potassium Chloride 15 meq/ Potassium Phosphate 18 mmol/ Magnesium Sulfate 8 meq/Calcium Gluconate 15 meq/ Multivitamins 10 ml/Chromium/ Copper/Manganese/ Seleni/Zn 0.5 ml/ Insulin Human Regular 15 unit/ Total Parenteral Nutrition/Amino Acids/Dextrose/ Fat Emulsion Intravenous 1,400 ml @ 58.333 mls/ hr TPN CONT IV Last administered on 07/17/19at 22:05; Start 07/17/19 at 22:00; Stop 07/18/19 at 21:59; Status DC Potassium Chloride 15 meq/ Bicarbonate Dialysis Soln w/ out KCl 5,007.5 ml @ 1,000 mls/ hr Q5H1M IV Last administered on 07/20/19at 18:14; Start 07/17/19 at 20:00; Stop 07/21/19 at 13:08; Status DC Potassium Chloride 15 meq/ Bicarbonate Dialysis Soln w/ out KCl 5,007.5 ml @ 1,000 mls/ hr Q5H1M IV Last administered on 07/20/19at 18:14; Start 07/17/19 at 20:00; Stop 07/21/19 at 13:08; Status DC Potassium Chloride 15 meq/ Bicarbonate Dialysis Soln w/ out KCl 5,007.5 ml @ 1,000 mls/ hr Q5H1M IV Last administered on 07/20/19at 18:14; Start 07/17/19 at 20:00; Stop 07/21/19 at 13:08; Status DC Iohexol (Omnipaque 240 Mg/ml) 30 ml 1X ONCE PO Last administered on 07/18/19at 11:30; Start 07/18/19 at 11:30; Stop 07/18/19 at 11:33; Status DC Info (CONTRAST GIVEN -- Rx MONITORING) 1 each PRN DAILY PRN MC SEE COMMENTS; Start 07/18/19 at 11:45; Stop 07/20/19 at 11:44; Status DC Sodium Chloride 90 meq/Potassium Chloride 15 meq/ Potassium Phosphate 18 mmol/ Magnesium Sulfate 8 meq/Calcium Gluconate 15 meq/ Multivitamins 10 ml/Chromium/ Copper/Manganese/ Seleni/Zn 0.5 ml/ Insulin Human Regular 15 unit/ Total Parenteral Nutrition/Amino Acids/Dextrose/ Fat Emulsion Intravenous 1,400 ml @ 58.333 mls/ hr TPN CONT IV Last administered on 07/18/19at 21:47; Start 07/18/19 at 22:00; Stop 07/19/19 at 21:59; Status DC Sodium Chloride 90 meq/Potassium Chloride 15 meq/ Potassium Phosphate 18 mmol/ Magnesium Sulfate 8 meq/Calcium Gluconate 15 meq/ Multivitamins 10 ml/Chromium/ Copper/Manganese/ Seleni/Zn 0.5 ml/ Insulin Human Regular 20 unit/ Total Parenteral Nutrition/Amino Acids/Dextrose/ Fat Emulsion Intravenous 1,400 ml @ 58.333 mls/ hr TPN CONT IV Last administered on 07/19/19at 21:36; Start 07/19/19 at 22:00; Stop 07/20/19 at 21:59; Status DC Alteplase, Recombinant (Cathflo For Central Catheter Clearance) 1 mg 1X ONCE INT CAT Last administered on 07/19/19at 20:03; Start 07/19/19 at 19:30; Stop 07/19/19 at 19:46; Status DC Alteplase, Recombinant (Cathflo For Central Catheter Clearance) 1 mg 1X ONCE INT CAT Last administered on 07/19/19at 22:05; Start 07/19/19 at 22:00; Stop 07/19/19 at 22:01; Status DC Sodium Chloride 90 meq/Potassium Chloride 15 meq/ Potassium Phosphate 18 mmol/ Magnesium Sulfate 8 meq/Calcium Gluconate 15 meq/ Multivitamins 10 ml/Chromium/ Copper/Manganese/ Seleni/Zn 0.5 ml/ Insulin Human Regular 20 unit/ Total Parenteral Nutrition/Amino Acids/Dextrose/ Fat Emulsion Intravenous 1,400 ml @ 58.333 mls/ hr TPN CONT IV Last administered on 07/20/19at 21:30; Start 07/20/19 at 22:00; Stop 07/21/19 at 21:59; Status DC Dexmedetomidine HCl 400 mcg/ Sodium Chloride 100 ml @ 0 mls/hr CONT PRN IV ANXIETY / AGITATION Last administered on 08/18/19at 04:38; Start 07/21/19 at 08:15 Sodium Chloride 500 ml @ 500 mls/hr 1X PRN PRN IV ELEVATED BP, SEE COMMENTS; Start 07/21/19 at 08:15 Atropine Sulfate (ATROPINE 0.5mg SYRINGE) 0.5 mg PRN Q5MIN PRN IV SEE COMMENTS; Start 07/21/19 at 08:15 Furosemide (Lasix) 20 mg 1X ONCE IVP Last administered on 07/21/19at 08:19; Start 07/21/19 at 08:15; Stop 07/21/19 at 08:16; Status DC Lidocaine HCl (Buffered Lidocaine 1%) 3 ml STK-MED ONCE .ROUTE ; Start 07/21/19 at 08:39; Stop 07/21/19 at 08:39; Status DC Lidocaine HCl (Buffered Lidocaine 1%) 6 ml 1X ONCE INJ Last administered on 07/21/19at 09:05; Start 07/21/19 at 09:00; Stop 07/21/19 at 09:06; Status DC Sodium Chloride 90 meq/Potassium Chloride 15 meq/ Potassium Phosphate 18 mmol/ Magnesium Sulfate 8 meq/Calcium Gluconate 15 meq/ Multivitamins 10 ml/Chromium/ Copper/Manganese/ Seleni/Zn 0.5 ml/ Insulin Human Regular 20 unit/ Total Parenteral Nutrition/Amino Acids/Dextrose/ Fat Emulsion Intravenous 1,400 ml @ 58.333 mls/ hr TPN CONT IV Last administered on 07/21/19at 22:45; Start 07/21/19 at 22:00; Stop 07/22/19 at 21:59; Status DC Sodium Chloride 1,000 ml @ 1,000 mls/hr Q1H PRN IV hypotension; Start 07/22/19 at 07:30; Stop 07/22/19 at 13:29; Status DC Albumin Human 200 ml @ 200 mls/hr 1X PRN PRN IV Hypotension Last administered on 07/22/19at 09:36; Start 07/22/19 at 07:30; Stop 07/22/19 at 13:29; Status DC Sodium Chloride (Normal Saline Flush) 10 ml 1X PRN PRN IV AP catheter pack; Start 07/22/19 at 07:30; Stop 07/22/19 at 21:29; Status DC Sodium Chloride (Normal Saline Flush) 10 ml 1X PRN PRN IV SCRAP CRANE OPERATOR catheter pack; Start 07/22/19 at 07:30; Stop 07/23/19 at 07:29; Status DC Sodium Chloride 1,000 ml @ 400 mls/hr Q2H30M PRN IV PATENCY; Start 07/22/19 at 07:30; Stop 07/22/19 at 19:29; Status DC Info (PHARMACY MONITORING -- do not chart) 1 each PRN DAILY PRN MC SEE COMMENTS; Start 07/22/19 at 07:30; Stop 07/22/19 at 13:02; Status DC Info (PHARMACY MONITORING -- do not chart) 1 each PRN DAILY PRN MC SEE COMMENTS; Start 07/22/19 at 07:30; Stop 07/24/19 at 12:45; Status DC Sodium Chloride 90 meq/Potassium Chloride 15 meq/ Potassium Phosphate 10 mmol/ Magnesium Sulfate 8 meq/Calcium Gluconate 15 meq/ Multivitamins 10 ml/Chromium/ Copper/Manganese/ Seleni/Zn 0.5 ml/ Insulin Human Regular 25 unit/ Total Parenteral Nutrition/Amino Acids/Dextrose/ Fat Emulsion Intravenous 1,400 ml @ 58.333 mls/ hr TPN CONT IV Last administered on 07/22/19at 22:19; Start 07/22/19 at 22:00; Stop 07/23/19 at 21:59; Status DC Heparin Sodium (Porcine) (Heparin Sodium) 5,000 unit Q12HR SQ Last administered on 08/14/19at 08:59; Start 07/22/19 at 21:00; Stop 08/14/19 at 10:05; Status DC Ondansetron HCl (Zofran) 4 mg PRN Q6HRS PRN IV NAUSEA/VOMITING; Start 07/25/19 at 07:00; Stop 07/26/19 at 06:59; Status DC Fentanyl Citrate (Fentanyl 2ml Vial) 25 mcg PRN Q5MIN PRN IV MILD PAIN 1-3; Start 07/25/19 at 07:00; Stop 07/26/19 at 06:59; Status DC Fentanyl Citrate (Fentanyl 2ml Vial) 50 mcg PRN Q5MIN PRN IV MODERATE TO SEVERE PAIN; Start 07/25/19 at 07:00; Stop 07/26/19 at 06:59; Status DC Ringer's Solution 1,000 ml @ 30 mls/hr Q24H IV ; Start 07/25/19 at 07:00; Stop 07/25/19 at 18:59; Status DC Lidocaine HCl (Xylocaine-Mpf 1% 2ml Vial) 2 ml PRN 1X PRN ID PRIOR TO IV START; Start 07/25/19 at 07:00; Stop 07/26/19 at 06:59; Status DC Prochlorperazine Edisylate (Compazine) 5 mg PACU PRN PRN IV NAUSEA, MRX1; Start 07/25/19 at 07:00; Stop 07/26/19 at 06:59; Status DC Sodium Chloride 1,000 ml @ 1,000 mls/hr Q1H PRN IV hypotension; Start 07/23/19 at 09:10; Stop 07/23/19 at 15:09; Status DC Albumin Human 200 ml @ 200 mls/hr 1X PRN PRN IV Hypotension Last administered on 07/23/19at 10:10; Start 07/23/19 at 09:15; Stop 07/23/19 at 15:14; Status DC Sodium Chloride 1,000 ml @ 400 mls/hr Q2H30M PRN IV PATENCY; Start 07/23/19 at 09:10; Stop 07/23/19 at 21:09; Status DC Info (PHARMACY MONITORING -- do not chart) 1 each PRN DAILY PRN MC SEE COMMENTS; Start 07/23/19 at 09:15; Stop 07/24/19 at 12:45; Status DC Info (PHARMACY MONITORING -- do not chart) 1 each PRN DAILY PRN MC SEE COMMENTS; Start 07/23/19 at 09:15; Stop 07/24/19 at 12:45; Status DC Sodium Chloride 90 meq/Potassium Chloride 15 meq/ Potassium Phosphate 10 mmol/ Magnesium Sulfate 8 meq/Calcium Gluconate 15 meq/ Multivitamins 10 ml/Chromium/ Copper/Manganese/ Seleni/Zn 0.5 ml/ Insulin Human Regular 25 unit/ Total Parenteral Nutrition/Amino Acids/Dextrose/ Fat Emulsion Intravenous 1,400 ml @ 58.333 mls/ hr TPN CONT IV Last administered on 07/23/19at 22:10; Start 07/23/19 at 22:00; Stop 07/24/19 at 21:59; Status DC Magnesium Sulfate 50 ml @ 25 mls/hr PRN DAILY PRN IV for Mag < 1.7 on am labs Last administered on 08/08/19at 17:27; Start 07/24/19 at 09:15 Sodium Chloride 90 meq/Potassium Chloride 15 meq/ Potassium Phosphate 10 mmol/ Magnesium Sulfate 8 meq/Calcium Gluconate 15 meq/ Multivitamins 10 ml/Chromium/ Copper/Manganese/ Seleni/Zn 0.5 ml/ Insulin Human Regular 25 unit/ Total Parenteral Nutrition/Amino Acids/Dextrose/ Fat Emulsion Intravenous 1,400 ml @ 58.333 mls/ hr TPN CONT IV Last administered on 07/24/19at 21:20; Start 07/24/19 at 22:00; Stop 07/25/19 at 21:59; Status DC Sodium Chloride 1,000 ml @ 1,000 mls/hr Q1H PRN IV hypotension; Start 07/24/19 at 12:23; Stop 07/24/19 at 18:22; Status DC Albumin Human 200 ml @ 200 mls/hr 1X ONCE IV Last administered on 07/24/19at 13:34; Start 07/24/19 at 12:30; Stop 07/24/19 at 13:29; Status DC Diphenhydramine HCl (Benadryl) 25 mg 1X PRN PRN IV ITCHING; Start 07/24/19 at 12:30; Stop 07/25/19 at 12:29; Status DC Diphenhydramine HCl (Benadryl) 25 mg 1X PRN PRN IV ITCHING; Start 07/24/19 at 12:30; Stop 07/25/19 at 12:29; Status DC Info (PHARMACY MONITORING -- do not chart) 1 each PRN DAILY PRN MC SEE COMMENTS; Start 07/24/19 at 12:30; Status Cancel Bupivacaine HCl/ Epinephrine Bitart (Sensorcain-Epi 0.5%-1:[id number] Mpf) 30 ml STK-MED ONCE .ROUTE Last administered on 07/25/19at 11:44; Start 07/25/19 at 11:00; Stop 07/25/19 at 11:01; Status DC Cellulose (Surgicel Fibrillar 1x2) 1 each STK-MED ONCE .ROUTE ; Start 07/25/19 at 11:00; Stop 07/25/19 at 11:01; Status DC Sodium Chloride 90 meq/Potassium Chloride 15 meq/ Potassium Phosphate 10 mmol/ M agnesium Sulfate 12 meq/Calcium Gluconate 15 meq/ Multivitamins 10 ml/Chromium/ Copper/Manganese/ Seleni/Zn 0.5 ml/ Insulin Human Regular 25 unit/ Total Parenteral Nutrition/Amino Acids/Dextrose/ Fat Emulsion Intravenous 1,400 ml @ 58.333 mls/ hr TPN CONT IV Last administered on 07/25/19at 22:24; Start 07/25/19 at 22:00; Stop 07/26/19 at 21:59; Status DC Propofol 20 ml @ As Directed STK-MED ONCE IV ; Start 07/25/19 at 11:07; Stop 07/25/19 at 11:07; Status DC Cellulose (Surgicel Hemostat 4x8) 1 each STK-MED ONCE .ROUTE Last administered on 07/25/19at 11:44; Start 07/25/19 at 11:55; Stop 07/25/19 at 11:56; Status DC Sevoflurane (Ultane) 60 ml STK-MED ONCE IH ; Start 07/25/19 at 12:46; Stop 07/25/19 at 12:46; Status DC Sodium Chloride 1,000 ml @ 1,000 mls/hr Q1H PRN IV hypotension; Start 07/25/19 at 13:51; Stop 07/25/19 at 19:50; Status DC Albumin Human 200 ml @ 200 mls/hr 1X PRN PRN IV Hypotension Last administered on 07/25/19at 14:51; Start 07/25/19 at 14:00; Stop 07/25/19 at 19:59; Status DC Diphenhydramine HCl (Benadryl) 25 mg 1X PRN PRN IV ITCHING; Start 07/25/19 at 14:00; Stop 07/26/19 at 13:59; Status DC Diphenhydramine HCl (Benadryl) 25 mg 1X PRN PRN IV ITCHING; Start 07/25/19 at 14:00; Stop 07/26/19 at 13:59; Status DC Sodium Chloride 1,000 ml @ 400 mls/hr Q2H30M PRN IV PATENCY; Start 07/25/19 at 13:51; Stop 07/26/19 at 01:50; Status DC Info (PHARMACY MONITORING -- do not chart) 1 each PRN DAILY PRN MC SEE COMMENTS; Start 07/25/19 at 14:00; Stop 07/28/19 at 08:16; Status DC Heparin Sodium (Porcine) (Hep Lock Adult) 500 unit STK-MED ONCE IVP ; Start 07/26/19 at 09:29; Stop 07/26/19 at 09:30; Status DC Sodium Chloride 1,000 ml @ 1,000 mls/hr Q1H PRN IV hypotension; Start 07/26/19 at 10:43; Stop 07/26/19 at 16:42; Status DC Sodium Chloride 1,000 ml @ 400 mls/hr Q2H30M PRN IV PATENCY; Start 07/26/19 at 10:43; Stop 07/26/19 at 22:42; Status DC Info (PHARMACY MONITORING -- do not chart) 1 each PRN DAILY PRN MC SEE COMMENTS; Start 07/26/19 at 10:45; Status UNV Info (PHARMACY MONITORING -- do not chart) 1 each PRN DAILY PRN MC SEE COMMENTS; Start 07/26/19 at 10:45; Status UNV Sodium Chloride 90 meq/Potassium Chloride 15 meq/ Magnesium Sulfate 12 meq/Calcium Gluconate 15 meq/ Multivitamins 10 ml/Chromium/ Copper/Manganese/ Seleni/Zn 0.5 ml/ Insulin Human Regular 25 unit/ Total Parenteral Nutrition/Amino Acids/Dextrose/ Fat Emulsion Intravenous 1,400 ml @ 58.333 mls/ hr TPN CONT IV Last administered on 07/26/19at 22:13; Start 07/26/19 at 22:00; Stop 07/27/19 at 21:59; Status DC Sodium Chloride 1,000 ml @ 1,000 mls/hr Q1H PRN IV hypotension; Start 07/27/19 at 07:50; Stop 07/27/19 at 13:49; Status DC Albumin Human 200 ml @ 200 mls/hr 1X ONCE IV ; Start 07/27/19 at 08:00; Stop 07/27/19 at 08:53; Status DC Diphenhydramine HCl (Benadryl) 25 mg 1X PRN PRN IV ITCHING; Start 07/27/19 at 08:00; Stop 07/28/19 at 07:59; Status DC Diphenhydramine HCl (Benadryl) 25 mg 1X PRN PRN IV ITCHING; Start 07/27/19 at 08 :00; Stop 07/28/19 at 07:59; Status DC Info (PHARMACY MONITORING -- do not chart) 1 each PRN DAILY PRN MC SEE COMMENTS; Start 07/27/19 at 08:00; Stop 07/28/19 at 08:16; Status DC Albumin Human 50 ml @ 50 mls/hr 1X ONCE IV ; Start 07/27/19 at 08:53; Stop at 08:56; Status DC Albumin Human 200 ml @ 50 mls/hr PRN 1X PRN IV HYPOTENSION Last administered on 08/02/19at 11:54; Start 07/27/19 at 09:00 Meropenem 500 mg/ Sodium Chloride 50 ml @ 100 mls/hr Q12H IV Last administered on 08/16/19at 10:45; Start 07/27/19 at 10:00; Stop 08/16/19 at 12:37; Status DC Sodium Chloride 90 meq/Magnesium Sulfate 12 meq/ Calcium Gluconate 15 meq/ Multivitamins 10 ml/Chromium/ Copper/Manganese/ Seleni/Zn 0.5 ml/ Insulin Human Regular 25 unit/ Total Parenteral Nutrition/Amino Acids/Dextrose/ Fat Emulsion Intravenous 1,400 ml @ 58.333 mls/ hr TPN CONT IV Last administered on 07/27/19at 21:41; Start 07/27/19 at 22:00; Stop 07/28/19 at 21:59; Status DC Sodium Chloride 1,000 ml @ 1,000 mls/hr Q1H PRN IV hypotension; Start 07/28/19 at 07:58; Stop 07/28/19 at 13:57; Status DC Albumin Human 200 ml @ 200 mls/hr 1X PRN PRN IV Hypotension Last administered on 07/28/19at 09:30; Start 07/28/19 at 08:00; Stop 07/28/19 at 13:59; Status DC Sodium Chloride 1,000 ml @ 400 mls/hr Q2H30M PRN IV PATENCY; Start 07/28/19 at 07:58; Stop 07/28/19 at 19:57; Status DC Info (PHARMACY MONITORING -- do not chart) 1 each PRN DAILY PRN MC SEE COMMENTS; Start 07/28/19 at 08:00; Status Cancel Info (PHARMACY MONITORING -- do not chart) 1 each PRN DAILY PRN MC SEE COMMENTS; Start 07/28/19 at 08:15; Status UNV Sodium Chloride 90 meq/Potassium Phosphate 5 mmol/ Magnesium Sulfate 12 meq/Ca lcium Gluconate 15 meq/ Multivitamins 10 ml/Chromium/ Copper/Manganese/ Seleni/Zn 0.5 ml/ Insulin Human Regular 30 unit/ Total Parenteral Nutrition/Amino Acids/Dextrose/ Fat Emulsion Intravenous 1,400 ml @ 58.333 mls/ hr TPN CONT IV Last administered on 07/28/19at 22:08; Start 07/28/19 at 22:00; Stop 07/29/19 at 21:59; Status DC Linezolid/Dextrose 300 ml @ 300 mls/hr Q12HR IV Last administered on 08/08/19at 20:40; Start 07/29/19 at 11:00; Stop 08/09/19 at 08:10; Status DC Sodium Chloride 90 meq/Potassium Phosphate 15 mmol/ Magnesium Sulfate 12 meq/Calcium Gluconate 15 meq/ Multivitamins 10 ml/Chromium/ Copper/Manganese/ Seleni/Zn 0.5 ml/ Insulin Human Regular 30 unit/ Total Parenteral Nutrition/Amino Acids/Dextrose/ Fat Emulsion Intravenous 1,400 ml @ 58.333 mls/ hr TPN CONT IV Last administered on 07/29/19at 21:49; Start 07/29/19 at 22:00; Stop 07/30/19 at 21:59; Status DC Sodium Chloride 90 meq/Potassium Phosphate 15 mmol/ Magnesium Sulfate 12 meq/Calcium Gluconate 15 meq/ Multivitamins 10 ml/Chromium/ Copper/Manganese/ Seleni/Zn 0.5 ml/ Insulin Human Regular 40 unit/ Total Parenteral Nutrition/Amino Acids/Dextrose/ Fat Emulsion Intravenous 1,400 ml @ 58.333 mls/ hr TPN CONT IV Last administered on 07/30/19at 21:21; Start 07/30/19 at 22:00; Stop 07/31/19 at 21:59; Status DC Sodium Chloride 1,000 ml @ 1,000 mls/hr Q1H PRN IV hypotension; Start 07/30/19 at 13:26; Stop 07/30/19 at 19:25; Status DC Albumin Human 200 ml @ 200 mls/hr 1X PRN PRN IV Hypotension Last administered on 07/30/19at 15:00; Start 07/30/19 at 13:30; Stop 07/30/19 at 19:29; Status DC Sodium Chloride (Normal Saline Flush) 10 ml 1X PRN PRN IV AP catheter pack; Start 07/30/19 at 13:30; Stop 07/31/19 at 13:29; Status DC Sodium Chloride (Normal Saline Flush) 10 ml 1X PRN PRN IV [employer] catheter pack; Start 07/30/19 at 13:30; Stop 07/31/19 at 13:29; Status DC Sodium Chloride 1,000 ml @ 400 mls/hr Q2H30M PRN IV PATENCY; Start 07/30/19 at 13:26; Stop 07/31/19 at 01:25; Status DC Info (PHARMACY MONITORING -- do not chart) 1 each PRN DAILY PRN MC SEE COMMENTS; Start 07/30/19 at 13:30; Stop 07/30/19 at 13:33; Status DC Info (PHARMACY MONITORING -- do not chart) 1 each PRN DAILY PRN MC SEE COMMENTS; Start 07/30/19 at 13:30; Stop 07/30/19 at 13:34; Status DC Sodium Chloride 90 meq/Potassium Phosphate 19 mmol/ Magnesium Sulfate 12 meq/Calcium Gluconate 15 meq/ Multivitamins 10 ml/Chromium/ Copper/Manganese/ Seleni/Zn 0.5 ml/ Insulin Human Regular 40 unit/ Total Parenteral Nutrition/Amino Acids/Dextrose/ Fat Emulsion Intravenous 1,400 ml @ 58.333 mls/ hr TPN CONT IV Last administered on 07/31/19at 21:54; Start 07/31/19 at 22:00; Stop 08/01/19 at 21:59; Status DC Sodium Chloride 1,000 ml @ 1,000 mls/hr Q1H PRN IV hypotension; Start 08/01/19 at 09:35; Stop 08/01/19 at 15:34; Status DC Albumin Human 200 ml @ 200 mls/hr 1X PRN PRN IV Hypotension; Start 08/01/19 at 09:45; Stop 08/01/19 at 15:44; Status DC Diphenhydramine HCl (Benadryl) 25 mg 1X PRN PRN IV ITCHING; Start 08/01/19 at 09:45; Stop 08/02/19 at 09:44; Status DC Diphenhydramine HCl (Benadryl) 25 mg 1X PRN PRN IV ITCHING; Start 08/01/19 at 09:45; Stop 08/02/19 at 09:44; Status DC Sodium Chloride 1,000 ml @ 400 mls/hr Q2H30M PRN IV PATENCY; Start 08/01/19 at 09:35; Stop 08/01/19 at 21:34; Status DC Info (PHARMACY MONITORING -- do not chart) 1 each PRN DAILY PRN MC SEE COMMENTS; Start 08/01/19 at 09:45; Status Cancel Sodium Chloride 100 meq/Potassium Phosphate 19 mmol/ Magnesium Sulfate 12 meq/Calcium Gluconate 15 meq/ Multivitamins 10 ml/Chromium/ Copper/Manganese/ Seleni/Zn 0.5 ml/ Insulin Human Regular 40 unit/ Potassium Chloride 20 meq/ Total Parenteral Nutrition/Amino Acids/Dextrose/ Fat Emulsion Intravenous 1,400 ml @ 58.333 mls/ hr TPN CONT IV Last administered on 08/01/19at 22:02; Start 08/01/19 at 22:00; Stop 08/02/19 at 21:59; Status DC Furosemide (Lasix) 40 mg 1X ONCE IVP Last administered on 08/01/19at 14:39; Start 08/01/19 at 14:30; Stop 08/01/19 at 14:31; Status DC Metronidazole 100 ml @ 100 mls/hr Q8HRS IV Last administered on 08/09/19at 06:04; Start 08/02/19 at 10:00; Stop 08/09/19 at 08:10; Status DC Sodium Chloride 1,000 ml @ 1,000 mls/hr Q1H PRN IV hypotension; Start 08/02/19 at 08:00; Stop 08/02/19 at 13:59; Status DC Albumin Human 200 ml @ 200 mls/hr 1X PRN PRN IV Hypotension; Start 08/02/19 at 08:00; Stop 08/02/19 at 13:59; Status DC Sodium Chloride 1,000 ml @ 400 mls/hr Q2H30M PRN IV PATENCY; Start 08/02/19 at 08:00; Stop 08/02/19 at 19:59; Status DC Info (PHARMACY MONITORING -- do not chart) 1 each PRN DAILY PRN MC SEE COMMENTS; Start 08/02/19 at 11:30; Status UNV Info (PHARMACY MONITORING -- do not chart) 1 each PRN DAILY PRN MC SEE COMMENTS; Start 08/02/19 at 11:30; Stop 08/04/19 at 12:13; Status DC Sodium Chloride 100 meq/Potassium Phosphate 19 mmol/ Magnesium Sulfate 12 meq/Calcium Gluconate 15 meq/ Multivitamins 10 ml/Chromium/ Copper/Manganese/ Seleni/Zn 0.5 ml/ Insulin Human Regular 40 unit/ Potassium Chloride 20 meq/ Total Parenteral Nutrition/Amino Acids/Dextrose/ Fat Emulsion Intravenous 1,400 ml @ 58.333 mls/ hr TPN CONT IV Last administered on 08/02/19at 21:52; Start 08/02/19 at 22:00; Stop 08/03/19 at 21:59; Status DC Sodium Chloride (Normal Saline Flush) 10 ml QSHIFT PRN IV AFTER MEDS AND BLOOD DRAWS; Start 08/02/19 at 15:00 Sodium Chloride (Normal Saline Flush) 10 ml PRN Q5MIN PRN IV AFTER MEDS AND BLOOD DRAWS; Start 08/02/19 at 15:00 Sodium Chloride (Normal Saline Flush) 20 ml PRN Q5MIN PRN IV AFTER MEDS AND BLOOD DRAWS; Start 08/02/19 at 15:00 Sodium Chloride 100 meq/Potassium Phosphate 19 mmol/ Magnesium Sulfate 12 meq/Calcium Gluconate 15 meq/ Multivitamins 10 ml/Chromium/ Copper/Manganese/ Seleni/Zn 0.5 ml/ Insulin Human Regular 40 unit/ Potassium Chloride 20 meq/ Total Parenteral Nutrition/Amino Acids/Dextrose/ Fat Emulsion Intravenous 1,400 ml @ 58.333 mls/ hr TPN CONT IV Last administered on 08/03/19at 21:20; Start 08/03/19 at 22:00; Stop 08/04/19 at 21:59; Status DC Lidocaine HCl (Buffered Lidocaine 1%) 3 ml STK-MED ONCE .ROUTE ; Start 08/03/19 at 13:16; Stop 08/03/19 at 13:16; Status DC Lidocaine HCl (Buffered Lidocaine 1%) 6 ml 1X ONCE INJ Last administered on 08/03/19at 13:45; Start 08/03/19 at 13:30; Stop 08/03/19 at 13:31; Status DC Albumin Human 100 ml @ 100 mls/hr 1X ONCE IV Last administered on 08/03/19at 15:41; Start 08/03/19 at 15:00; Stop 08/03/19 at 15:59; Status DC Albumin Human 50 ml @ 50 mls/hr 1X ONCE IV Last administered on 08/03/19at 15:00; Start 08/03/19 at 15:00; Stop 08/03/19 at 15:59; Status DC Info (PHARMACY MONITORING -- do not chart) 1 each PRN DAILY PRN MC SEE COMMENTS; Start 08/04/19 at 11:30; Status Cancel Info (PHARMACY MONITORING -- do not chart) 1 each PRN DAILY PRN MC SEE COMMENTS; Start 08/04/19 at 11:30; Status UNV Sodium Chloride 100 meq/Potassium Phosphate 10 mmol/ Magnesium Sulfate 12 meq/Calcium Gluconate 15 meq/ Multivitamins 10 ml/Chromium/ Copper/Manganese/ Seleni/Zn 0.5 ml/ Insulin Human Regular 35 unit/ Potassium Chloride 20 meq/ Total Parenteral Nutrition/Amino Acids/Dextrose/ Fat Emulsion Intravenous 1,400 ml @ 58.333 mls/ hr TPN CONT IV Last administered on 08/04/19at 22:10; Start 08/04/19 at 22:00; Stop 08/05/19 at 21:59; Status DC Sodium Chloride 100 meq/Potassium Phosphate 5 mmol/ Magnesium Sulfate 12 meq/Calcium Gluconate 15 meq/ Multivitamins 10 ml/Chromium/ Copper/Manganese/ Seleni/Zn 0.5 ml/ Insulin Human Regular 35 unit/ Potassium Chloride 20 meq/ Total Parenteral Nutrition/Amino Acids/Dextrose/ Fat Emulsion Intravenous 1,400 ml @ 58.333 mls/ hr TPN CONT IV Last administered on 08/05/19at 22:59; Start 08/05/19 at 22:00; Stop 08/06/19 at 21:59; Status DC Sodium Chloride 1,000 ml @ 1,000 mls/hr Q1H PRN IV hypotension; Start 08/06/19 at 08:27; Stop 08/06/19 at 14:26; Status DC Albumin Human 200 ml @ 200 mls/hr 1X PRN PRN IV Hypotension Last administered on 08/06/19at 09:18; Start 08/06/19 at 08:30; Stop 08/06/19 at 14:29; Status DC Sodium Chloride 1,000 ml @ 400 mls/hr Q2H30M PRN IV PATENCY; Start 08/06/19 at 08:27; Stop 08/06/19 at 20:26; Status DC Info (PHARMACY MONITORING -- do not chart) 1 each PRN DAILY PRN MC SEE COMMENTS; Start 08/06/19 at 08:30; Status Cancel Info (PHARMACY MONITORING -- do not chart) 1 each PRN DAILY PRN MC SEE COMMENTS; Start 08/06/19 at 08:30; Stop 08/14/19 at 13:10; Status DC Sodium Chloride 100 meq/Potassium Chloride 40 meq/ Magnesium Sulfate 15 meq/Calcium Gluconate 15 meq/ Multivitamins 10 ml/Chromium/ Copper/Manganese/ Seleni/Zn 0.5 ml/ Insulin Human Regular 35 unit/ Total Parenteral Nutriti on/Amino Acids/Dextrose/ Fat Emulsion Intravenous 1,400 ml @ 58.333 mls/ hr TPN CONT IV Last administered on 08/06/19at 22:00; Start 08/06/19 at 22:00; Stop 08/07/19 at 21:59; Status DC Potassium Chloride/Water 100 ml @ 100 mls/hr 1X ONCE IV Last administered on 08/06/19at 17:28; Start 08/06/19 at 14:45; Stop 08/06/19 at 15:44; Status DC Sodium Chloride 100 meq/Potassium Chloride 40 meq/ Magnesium Sulfate 15 meq/Calcium Gluconate 15 meq/ Multivitamins 10 ml/Chromium/ Copper/Manganese/ Seleni/Zn 0.5 ml/ Insulin Human Regular 35 unit/ Total Parenteral Nutrition/Amino Acids/Dextrose/ Fat Emulsion Intravenous 1,400 ml @ 58.333 mls/ hr TPN CONT IV Last administered on 08/07/19at 22:46; Start 08/07/19 at 22:00; Stop 08/08/19 at 21:59; Status DC Sodium Chloride 100 meq/Potassium Chloride 40 meq/ Magnesium Sulfate 20 meq/Calcium Gluconate 15 meq/ Multivitamins 10 ml/Chromium/ Copper/Manganese/ Seleni/Zn 0.5 ml/ Insulin Human Regular 35 unit/ Total Parenteral Nutrition/Amino Acids/Dextrose/ Fat Emulsion Intravenous 1,400 ml @ 58.333 mls/ hr TPN CONT IV Last administered on 08/08/19at 22:31; Start 08/08/19 at 22:00; Stop 08/09/19 at 21:59; Status DC Fentanyl Citrate (Fentanyl 2ml Vial) 50 mcg PRN Q2HR PRN IVP PAIN Last administered on 08/15/19at 13:32; Start 08/08/19 at 21:00; Stop 08/16/19 at 12:53; Status DC Fentanyl Citrate (Fentanyl 2ml Vial) 25 mcg PRN Q2HR PRN IVP PAIN; Start 08/08/19 at 21:00; Stop 08/16/19 at 12:54; Status DC Enoxaparin Sodium (Lovenox 100mg Syringe) 100 mg Q12HR SQ ; Start 08/09/19 at 21:00; Status UNV Amino Acids/ Glycerin/ Electrolytes 1,000 ml @ 75 mls/hr [id number] IV ; Start 08/08/19 at 21:15; Status UNV Sodium Chloride 1,000 ml @ 1,000 mls/hr Q1H PRN IV hypotension; Start 08/09/19 at 07:56; Stop 08/09/19 at 13:55; Status DC Albumin Human 200 ml @ 200 mls/hr 1X PRN PRN IV Hypotension Last administered on 08/09/19at 08:40; Start 08/09/19 at 08:00; Stop 08/09/19 at 13:59; Status DC Sodium Chloride 1,000 ml @ 400 mls/hr Q2H30M PRN IV PATENCY; Start 08/09/19 at 07:56; Stop 08/09/19 at 19:55; Status DC Info (PHARMACY MONITORING -- do not chart) 1 each PRN DAILY PRN MC SEE COMMENTS; Start 08/09/19 at 08:00; Status UNV Info (PHARMACY MONITORING -- do not chart) 1 each PRN DAILY PRN MC SEE COMMENTS; Start 08/09/19 at 08:00; Status UNV Daptomycin 430 mg/ Sodium Chloride 50 ml @ 100 mls/hr Q24H IV Last administered on 08/09/19at 12:35; Start 08/09/19 at 09:00; Stop 08/09/19 at 12:49; Status DC Sodium Chloride 100 meq/Potassium Chloride 40 meq/ Magnesium Sulfate 20 meq/Calcium Gluconate 15 meq/ Multivitamins 10 ml/Chromium/ Copper/Manganese/ Seleni/Zn 0.5 ml/ Insulin Human Regular 35 unit/ Total Parenteral Nutrition/Amino Acids/Dextrose/ Fat Emulsion Intravenous 1,400 ml @ 58.333 mls/ hr TPN CONT IV Last administered on 08/09/19at 21:26; Start 08/09/19 at 22:00; Stop 08/10/19 at 21:59; Status DC Daptomycin 430 mg/ Sodium Chloride 50 ml @ 100 mls/hr Q48H IV ; Start 08/11/19 at 09:00; Stop 08/10/19 at 11:55; Status DC Sodium Chloride 100 meq/Potassium Chloride 40 meq/ Magnesium Sulfate 20 meq/Calcium Gluconate 15 meq/ Multivitamins 10 ml/Chromium/ Copper/Manganese/ Seleni/Zn 0.5 ml/ Insulin Human Regular 35 unit/ Total Parenteral Nutrition/Amino Acids/Dextrose/ Fat Emulsion Intravenous 1,400 ml @ 58.333 mls/ hr TPN CONT IV Last administered on 08/10/19at 22:27; Start 08/10/19 at 22:00; Stop 08/11/19 at 21:59; Status DC Daptomycin 430 mg/ Sodium Chloride 50 ml @ 100 mls/hr Q24H IV Last administered on 08/12/19at 15:07; Start 08/10/19 at 13:00; Stop 08/13/19 at 13:15; Status DC Sodium Chloride 100 meq/Potassium Chloride 40 meq/ Magnesium Sulfate 20 meq/Calcium Gluconate 10 meq/ Multivitamins 10 ml/Chromium/ Copper/Manganese/ Seleni/Zn 0.5 ml/ Insulin Human Regular 35 unit/ Total Parenteral Nutrition/Amino Acids/Dextrose/ Fat Emulsion Intravenous 1,400 ml @ 58.333 mls/ hr TPN CONT IV Last administered on 08/12/19at 00:06; Start 08/11/19 at 22:00; Stop 08/12/19 at 21:59; Status DC Alteplase, Recombinant (Cathflo For Central Catheter Clearance) 1 mg 1X ONCE INT CAT Last administered on 08/12/19at 11:44; Start 08/12/19 at 10:45; Stop 08/12/19 at 10:46; Status DC Ondansetron HCl (Zofran) 4 mg PRN Q6HRS PRN IV NAUSEA/VOMITING; Start 08/15/19 at 07:00; Stop 08/16/19 at 06:59; Status DC Fentanyl Citrate (Fentanyl 2ml Vial) 25 mcg PRN Q5MIN PRN IV MILD PAIN 1-3; Start 08/15/19 at 07:00; Stop 08/16/19 at 06:59; Status DC Fentanyl Citrate (Fentanyl 2ml Vial) 50 mcg PRN Q5MIN PRN IV MODERATE TO SEVERE PAIN Last administered on 08/15/19at 10:17; Start 08/15/19 at 07:00; Stop 08/16/19 at 06:59; Status DC Ringer's Solution 1,000 ml @ 30 mls/hr Q24H IV ; Start 08/15/19 at 07:00; Stop 08/15/19 at 18:59; Status DC Lidocaine HCl (Xylocaine-Mpf 1% 2ml Vial) 2 ml PRN 1X PRN ID PRIOR TO IV START; Start 08/15/19 at 07:00; Stop 08/16/19 at 06:59; Status DC Prochlorperazine Edisylate (Compazine) 5 mg PACU PRN PRN IV NAUSEA, MRX1; Start 08/15/19 at 07:00; Stop 08/16/19 at 06:59; Status DC Sodium Acetate 50 meq/Potassium Acetate 55 meq/ Magnesium Sulfate 20 meq/Calcium Gluconate 10 meq/ Multivitamins 10 ml/Chromium/ Copper/Manganese/ Seleni/Zn 0.5 ml/ Insulin Human Regular 35 unit/ Total Parenteral Nutrition/Amino Acid s/Dextrose/ Fat Emulsion Intravenous 1,400 ml @ 58.333 mls/ hr TPN CONT IV ; Start 08/12/19 at 22:00; Stop 08/12/19 at 14:15; Status DC Sodium Acetate 50 meq/Potassium Acetate 55 meq/ Magnesium Sulfate 20 meq/Calcium Gluconate 10 meq/ Multivitamins 10 ml/Chromium/ Copper/Manganese/ Seleni/Zn 0.5 ml/ Insulin Human Regular 35 unit/ Total Parenteral Nutrition/Amino Acids/Dextrose/ Fat Emulsion Intravenous 1,800 ml @ 75 mls/hr TPN CONT IV Last administered on 08/12/19at 22:38; Start 08/12/19 at 22:00; Stop 08/13/19 at 21:59; Status DC Sodium Chloride 1,000 ml @ 1,000 mls/hr Q1H PRN IV hypotension; Start 08/12/19 at 15:31; Stop 08/12/19 at 21:30; Status DC Diphenhydramine HCl (Benadryl) 25 mg 1X PRN PRN IV ITCHING; Start 08/12/19 at 15:45; Stop 08/13/19 at 15:44; Status DC Diphenhydramine HCl (Benadryl) 25 mg 1X PRN PRN IV ITCHING; Start 08/12/19 at 15:45; Stop 08/13/19 at 15:44; Status DC Sodium Chloride 1,000 ml @ 400 mls/hr Q2H30M PRN IV PATENCY; Start 08/12/19 at 15:31; Stop 08/13/19 at 03:30; Status DC Info (PHARMACY MONITORING -- do not chart) 1 each PRN DAILY PRN MC SEE COMMENTS; Start 08/12/19 at 15:45 Sodium Acetate 50 meq/Potassium Acetate 55 meq/ Magnesium Sulfate 20 meq/Calcium Gluconate 10 meq/ Multivitamins 10 ml/Chromium/ Copper/Manganese/ Seleni/Zn 0.5 ml/ Insulin Human Regular 35 unit/ Total Parenteral Nutrition/Amino Acids/Dextrose/ Fat Emulsion Intravenous 1,800 ml @ 75 mls/hr TPN CONT IV Last administered on 08/13/19at 22:03; Start 08/13/19 at 22:00; Stop 08/14/19 at 21:59; Status DC Daptomycin 430 mg/ Sodium Chloride 50 ml @ 100 mls/hr Q24H IV Last administered on 08/17/19at 12:26; Start 08/13/19 at 13:00 Heparin Sodium (Porcine) 1000 unit/Sodium Chloride 1,001 ml @ 1,001 mls/hr 1X ONCE IRR ; Start 08/15/19 at 06:00; Stop 08/15/19 at 06:59; Status DC Potassium Acetate 55 meq/Magnesium Sulfate 20 meq/ Calcium Gluconate 10 meq/ Multivitamins 10 ml/Chromium/ Copper/Manganese/ Seleni/Zn 0.5 ml/ Insulin Human Regular 35 unit/ Total Parenteral Nutrition/Amino Acids/Dextrose/ Fat Emulsion Intravenous 1,920 ml @ 80 mls/hr TPN CONT IV Last administered on 08/14/19at 22:10; Start 08/14/19 at 22:00; Stop 08/15/19 at 21:59; Status DC Dexamethasone Sodium Phosphate (Decadron) 4 mg STK-MED ONCE .ROUTE ; Start 08/15/19 at 10:56; Stop 08/15/19 at 10:57; Status DC Ondansetron HCl (Zofran) 4 mg STK-MED ONCE .ROUTE ; Start 08/15/19 at 10:56; Stop 08/15/19 at 10:57; Status DC Rocuronium Blaine (Zemuron) 50 mg STK-MED ONCE .ROUTE ; Start 08/15/19 at 10:56; Stop 08/15/19 at 10:57; Status DC Fentanyl Citrate (Fentanyl 2ml Vial) 100 mcg STK-MED ONCE .ROUTE ; Start 08/15/19 at 10:56; Stop 08/15/19 at 10:57; Status DC Bupivacaine HCl/ Epinephrine Bitart (Sensorcain-Epi 0.5%-1:019301 Mpf) 30 ml STK-MED ONCE .ROUTE Last administered on 08/15/19at 12:01; Start 08/15/19 at 10:58; Stop 08/15/19 at 10:58; Status DC Cellulose (Surgicel Hemostat 2x14) 1 each STK-MED ONCE .ROUTE ; Start 08/15/19 at 10:58; Stop 08/15/19 at 10:59; Status DC Iohexol (Omnipaque 300 Mg/ml) 50 ml STK-MED ONCE .ROUTE ; Start 08/15/19 at 10:58; Stop 08/15/19 at 10:59; Status DC Cellulose (Surgicel Hemostat 4x8) 1 each STK-MED ONCE .ROUTE ; Start 08/15/19 at 10:58; Stop 08/15/19 at 10:59; Status DC Bisacodyl (Dulcolax Supp) 10 mg STK-MED ONCE .ROUTE ; Start 08/15/19 at 10:59; Stop 08/15/19 at 10:59; Status DC Heparin Sodium (Porcine) 1000 unit/Sodium Chloride 1,001 ml @ 1,001 mls/hr 1X ONCE IRR ; Start 08/15/19 at 12:00; Stop 08/15/19 at 12:59; Status DC Propofol 20 ml @ As Directed STK-MED ONCE IV ; Start 08/15/19 at 11:05; Stop 08/15/19 at 11:05; Status DC Sevoflurane (Ultane) 90 ml STK-MED ONCE IH ; Start 08/15/19 at 11:05; Stop 08/15/19 at 11:05; Status DC Sevoflurane (Ultane) 60 ml STK-MED ONCE IH ; Start 08/15/19 at 12:26; Stop 08/15/19 at 12:27; Status DC Propofol 20 ml @ As Directed STK-MED ONCE IV ; Start 08/15/19 at 12:26; Stop 08/15/19 at 12:27; Status DC Phenylephrine HCl (PHENYLEPHRINE in 0.9% NACL PF) 1 mg STK-MED ONCE IV ; Start 08/15/19 at 12:34; Stop 08/15/19 at 12:34; Status DC Heparin Sodium (Porcine) (Heparin Sodium) 5,000 unit Q12HR SQ Last administered on 08/17/19at 22:20; Start 08/15/19 at 21:00 Sodium Chloride (Normal Saline Flush) 3 ml QSHIFT PRN IV AFTER MEDS AND BLOOD DRAWS; Start 08/15/19 at 13:45 Naloxone HCl (Narcan) 0.4 mg PRN Q2MIN PRN IV SEE INSTRUCTIONS; Start 08/15/19 at 13:45 Sodium Chloride 1,000 ml @ 25 mls/hr Q24H IV Last administered on 08/18/19at 01:06; Start 08/15/19 at 13:37 Naloxone HCl (Narcan) 0.4 mg PRN Q2MIN PRN IV SEE INSTRUCTIONS; Start 08/15/19 at 14:30; Status UNV Sodium Chloride 1,000 ml @ 25 mls/hr Q24H IV ; Start 08/15/19 at 14:30; Status UNV Hydromorphone HCl 30 ml @ 0 mls/hr CONT PRN PRN IV PER PROTOCOL Last administered on 08/17/19at 11:28; Start 08/15/19 at 14:30 Potassium Acetate 55 meq/Magnesium Sulfate 20 meq/ Calcium Gluconate 10 meq/ Multivitamins 10 ml/Chromium/ Copper/Manganese/ Seleni/Zn 0.5 ml/ Insulin Human Regular 35 unit/ Total Parenteral Nutrition/Amino Acids/Dextrose/ Fat Emulsion Intravenous 1,920 ml @ 80 mls/hr TPN CONT IV Last administered on 08/15/19at 22:01; Start 08/15/19 at 22:00; Stop 08/16/19 at 21:59; Status DC Bumetanide (Bumex) 2 mg [id number] IV Last administered on 08/17/19at 14:53; Start 08/16/19 at 14:00 Meropenem 1 gm/ Sodium Chloride 100 ml @ 200 mls/hr Q8HRS IV Last administered on 08/18/19at 06:23; Start 08/16/19 at 14:00 Potassium Acetate 55 meq/Magnesium Sulfate 20 meq/ Calcium Gluconate 10 meq/ Multivitamins 10 ml/Chromium/ Copper/Manganese/ Seleni/Zn 0.5 ml/ Insulin Human Regular 35 unit/ Total Parenteral Nutrition/Amino Acids/Dextrose/ Fat Emulsion Intravenous 1,920 ml @ 80 mls/hr TPN CONT IV Last administered on 08/16/19at 22:02; Start 08/16/19 at 22:00; Stop 08/17/19 at 21:59; Status DC Hydromorphone HCl (Dilaudid Standard [employer]) 12 mg STK-MED ONCE IV ; Start 08/15/19 at 14:35; Stop 08/16/19 at 13:53; Status DC Artificial Tears (Artificial Tears) 1 drop PRN Q15MIN PRN OU DRY EYE Last administered on 08/18/19at 01:04; Start 08/17/19 at 05:30 Hydromorphone HCl (Dilaudid Standard [employer]) 12 mg STK-MED ONCE IV ; Start 08/16/19 at 12:05; Stop 08/17/19 at 09:15; Status DC Potassium Acetate 65 meq/Magnesium Sulfate 20 meq/ Calcium Gluconate 10 meq/ Multivitamins 10 ml/Chromium/ Copper/Manganese/ Seleni/Zn 0.5 ml/ Insulin Human Regular 30 unit/ Total Parenteral Nutrition/Amino Acids/Dextrose/ Fat Emulsion Intravenous 1,920 ml @ 80 mls/hr TPN CONT IV Last administered on 08/17/19at 22:22; Start 08/17/19 at 22:00; Stop 08/18/19 at 21:59 Active Scripts Active Reported Bisoprolol Fumarate 5 Mg Tablet 10 Mg PO DAILY Vitals/I & O Vital Sign - Last 24 Hours 08/17/19 08/17/19 08/17/19 08/17/19 07:57 08:00 08:00 09:00 Temp 99.3 99.3 Pulse 86 104 Resp 17 19 B/P (MAP) 140/86 (104) 155/74 (101) Pulse Ox 98 98 99 O2 Delivery Ventilator Ventilator Mechanical Ventilator Ventilator 08/17/19 08/17/19 08/17/19 08/17/19 10:00 11:00 11:28 11:34 Pulse 122 83 Resp 21 18 B/P (MAP) 105/51 (69) 90/61 (71) Pulse Ox 99 98 97 98 O2 Delivery Ventilator Ventilator Ventilator Ventilator 08/17/19 08/17/19 08/17/19 08/17/19 11:58 12:00 12:00 12:21 Temp 100.0 100.0 Pulse 141 Resp 38 B/P (MAP) 159/68 (98) Pulse Ox 100 100 98 O2 Delivery Ventilator Mechanical Ventilator Ventilator Ventilator 08/17/19 08/17/19 08/17/19 08/17/19 13:00 14:00 14:35 15:00 Pulse 100 90 138 Resp 25 40 46 B/P (MAP) 105/56 (72) 130/70 (90) 197/67 (110) Pulse Ox 96 98 96 95 O2 Delivery Ventilator Ventilator Tracheal Collar Tracheal Collar 08/17/19 08/17/19 08/17/19 08/17/19 15:32 15:35 16:00 16:00 Temp 98.4 98.4 Pulse 133 90 Resp B/P (MAP) 137/67 (90) 101/56 (71) Pulse Ox 97 98 98 O2 Delivery Ventilator Ventilator Mechanical Ventilator Ventilator 08/17/19 08/17/19 08/17/19 08/17/19 17:00 18:00 19:00 20:00 Pulse 88 88 110 Resp 26 18 18 B/P (MAP) 99/55 (70) 101/59 (73) 119/50 (73) Pulse Ox 100 100 99 O2 Delivery Ventilator Ventilator cpap trial Mechanical Ventilator 08/17/19 08/17/19 08/17/19 08/17/19 20:00 20:29 21:00 22:00 Temp 99.1 99.1 Pulse 98 94 84 Resp 20 20 B/P (MAP) 126/57 (80) 123/65 (84) 123/54 (77) Pulse Ox 99 97 99 100 O2 Delivery cpap trial Ventilator cpap trial cpap trial 08/17/19 08/18/19 08/18/19 08/18/19 23:00 00:00 00:00 00:30 Temp 99.4 99.4 Pulse 78 80 Resp 18 23 B/P (MAP) 109/54 (72) 105/55 (72) Pulse Ox 99 100 99 O2 Delivery cpap trial Mechanical Ventilator cpap trial Ventilator 08/18/19 08/18/19 08/18/19 08/18/19 00:31 01:00 02:00 03:00 Pulse 82 80 80 Resp 18 19 19 B/P (MAP) 110/57 (74) 98/47 (64) 100/52 (68) Pulse Ox 100 100 99 100 O2 Delivery Ventilator Ventilator Ventilator Ventilator 08/18/19 08/18/19 08/18/19 08/18/19 04:00 04:00 04:21 05:00 Temp 97.6 97.6 Pulse 80 80 Resp 18 18 B/P (MAP) 108/61 (77) 99/56 (70) Pulse Ox 100 99 98 O2 Delivery Mechanical Ventilator Ventilator Ventilator Ventilator 08/18/19 08/18/19 06:00 07:00 Pulse 80 78 Resp 18 19 B/P (MAP) 99/54 (69) 87/49 (62) Pulse Ox 99 98 O2 Delivery Ventilator Ventilator Intake and Output 08/17/19 08/17/19 08/18/19 15:00 23:00 07:00 Intake Total 50 ml 1444 ml 0 ml Output Total 2550 ml 1670 ml 1390 ml Balance -2500 ml -226 ml -1390 ml Hemodynamically unstable?: No Is patient in severe pain?: No Is NPO status required?: Yes DAVIN LANDEROS MD Aug 18, 2019 07:52
[2019-08-18] MEDS: BUMETANIDE 1 MG/4 ML VIAL. IV SCH ×2 (08:17→13:01)
[2019-08-18] MEDS: PANTOPRAZOLE IV PUSH 40 MG VIAL. IVP SCH (08:17)
[2019-08-18] MEDS: MICAFUNGIN 100 MG in IV DEXTROSE 5% 100ML 100 ML IV SCH (08:18)
[2019-08-18] MEDS: HEPARIN for SUB-Q USE 5,000 UNIT/ML VIAL. SQ SCH ×2 (08:20→21:22)
[2019-08-18 08:39] LABS: CALCIUM 8.5 mg/dL (8.5-10.1); CREATININE 1.1 mg/dL (0.6-1.0); GFR 52.8; POTASSIUM 3.6 mmol/L (3.5-5.1)
--- NOTE | 2019-08-18 09:15 | NUR ---
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
--- NOTE | 2019-08-18 09:30 | NUR ---
Procedure: Following complete explanation of the PICC procedure including the indications, risks, and potential complications, informed consent was obtained.The possibility for infection was discussed along with signs, symptoms, and prevention. All the questions were answered. Written and verbal patient education was provided. Hand hygiene performed. Standardized central line checklist was utilized. The patient was placed in the supine position, the arm was prepped with chlorhexidine and patient draped with maximum sterile barrier. 5 mL 1% lidocaine was infiltrated into the skin to provide local anesthesia. A thorough assessment of Right upper extremity completed. Using real-time ultrasound guidance and standardized micro puncture set, the Basilic vein was punctured and a peel away sheath was placed using the modified Seldinger technique. A tip location device was used to ensure adequate catheter placement. The catheter was secured using a securement device and an antimicrobial patch was applied directly on the insertion site followed by a transparent dressing. All ports withdraw blood and flush without resistance. Patient tolerated the procedure without apparent complication(s). Triple Lumen Power PICC placement successful and uncomplicated. Placement verified by EKG tip confirmation system. Tip located in the Cavoatrial Junciton. Complications: None Catheter timed to 47CM and inserted to 2CM Addendum: 08/18/19 at 0945 by DARIA DEL ROSARIO RN Amended: Links added.
--- NOTE | 2019-08-18 10:10 | PDOC ---
Infectious Disease Note Subjective: Subjective Patient is doing much better Sitting upright in chair Edema is improving Awaiting central line removal later today On TPN Vital Signs: Vital Signs Vital Signs Date Time Temp Pulse Resp B/P (MAP) Pulse Ox O2 Delivery O2 Flow Rate FiO2 08/18/19 08:25 98 Ventilator 08/18/19 07:00 78 19 87/49 (62) 08/18/19 04:00 97.6 97.6 Physical Exam: PHYSICAL EXAM GENERAL: Propped up in bed, sedated weak appearing HEENT: Pupils equal, + NGT, oral cavity dry NECK: Trach/vent LUNGS: rhonchi HEART: S1, S2, regular ABDOMEN: Distended, hypoactive BS, drain placement (08/14 ) : Lind (08/01) EXTREMITIES: Generalized edema, no cyanosis, SCDs bilaterally DERMATOLOGIC: Warm and dry. No generalized rash. CENTRAL NERVOUS SYSTEM: Extremely weak, nods to few simple questions HDC has been removed [facility] (08/01) clean Medications: Inpatient Meds: Current Medications Medications (Trade) Dose Ordered Sig/Yvon Start Time Stop Time Status Last Admin Dose Admin Acetaminophen (Tylenol Supp) 650 mg PRN Q6HRS PRN 07/12/19 10:30 08/15/19 00:32 650 MG Acetaminophen (Tylenol) 650 mg PRN Q6HRS PRN 07/09/19 03:36 08/04/19 19:56 650 MG Albumin Human 200 ml @ 200 mls/hr 1X PRN PRN 08/09/19 08:00 08/09/19 13:59 DC 08/09/19 08:40 200 MLS/HR Albuterol Sulfate (Ventolin Neb Soln) 2.5 mg 1X ONCE 07/05/19 22:30 07/05/19 22:31 DC 07/06/19 00:56 2.5 MG Alteplase, Recombinant (Cathflo For Central Catheter Clearance) 1 mg 1X ONCE 08/12/19 10:45 08/12/19 10:46 DC 08/12/19 11:44 1 MG Amino Acids/ Glycerin/ Electrolytes 1,000 ml @ 75 mls/hr [id number] 08/08/19 21:15 UNV Artificial Tears (Artificial Tears) 1 drop PRN Q15MIN PRN 08/17/19 05:30 08/18/19 08:16 1 DROP Atenolol (Tenormin) 100 mg DAILY 07/05/19 09:00 07/04/19 20:08 DC Atropine Sulfate (ATROPINE 0.5mg SYRINGE) 0.5 mg PRN Q5MIN PRN 07/21/19 08:15 Benzocaine (Hurricaine One) 1 spray 1X ONCE 07/08/19 14:30 07/08/19 14:31 DC 07/08/19 16:38 1 SPRAY Bisacodyl (Dulcolax Supp) 10 mg STK-MED ONCE 08/15/19 10:59 08/15/19 10:59 DC Bumetanide (Bumex) 2 mg [id number] 08/16/19 14:00 08/18/19 08:17 2 MG Bupivacaine HCl/ Epinephrine Bitart (Sensorcain-Epi 0.5%-1:[id number] Mpf) 30 ml STK-MED ONCE 08/15/19 10:58 08/15/19 10:58 DC 08/15/19 12:01 7 ML Calcium Carbonate/ Glycine (Tums) 500 mg PRN [id number] PRN 07/06/19 17:45 Calcium Chloride 1000 mg/Sodium Chloride 110 ml @ 220 mls/hr 1X ONCE 07/05/19 22:30 07/05/19 22:59 DC 07/05/19 22:11 220 MLS/HR Calcium Chloride 3000 mg/Sodium Chloride 1,030 ml @ 50 mls/hr [id number] 07/07/19 08:00 07/09/19 15:23 DC 07/09/19 02:17 50 MLS/HR Calcium Gluconate (Calcium Gluconate) 2,000 mg 1X ONCE 07/07/19 02:15 07/07/19 02:16 DC 07/07/19 02:19 2,000 MG Calcium Gluconate 1000 mg/Sodium Chloride 110 ml @ 220 mls/hr 1X ONCE 07/06/19 03:30 07/06/19 03:59 DC 07/06/19 03:21 220 MLS/HR Calcium Gluconate 2000 mg/Sodium Chloride 120 ml @ 220 mls/hr 1X ONCE 07/06/19 07:30 07/06/19 08:02 DC 07/06/19 09:05 220 MLS/HR Cefepime HCl (Maxipime) 2 gm Q12HR 07/13/19 09:00 07/27/19 09:58 DC 07/26/19 20:56 2 GM Cellulose (Surgicel Fibrillar 1x2) 1 each STK-MED ONCE 07/25/19 11:00 07/25/19 11:01 DC Cellulose (Surgicel Hemostat 2x14) 1 each STK-MED ONCE 08/15/19 10:58 08/15/19 10:59 DC Cellulose (Surgicel Hemostat 4x8) 1 each STK-MED ONCE 08/15/19 10:58 08/15/19 10:59 DC Daptomycin 430 mg/ Sodium Chloride 50 ml @ 100 mls/hr Q24H 08/13/19 13:00 08/17/19 12:26 100 MLS/HR Daptomycin 500 mg/ Sodium Chloride 50 ml @ 100 mls/hr Q48H 07/13/19 08:30 07/29/19 10:07 DC 07/29/19 09:57 100 MLS/HR Dexamethasone Sodium Phosphate (Decadron) 4 mg STK-MED ONCE 08/15/19 10:56 08/15/19 10:57 DC Dexmedetomidine HCl 400 mcg/ Sodium Chloride 100 ml @ 0 mls/hr CONT PRN 07/21/19 08:15 08/18/19 08:19 30.5 MLS/HR Dextrose (Dextrose 50%-Water Syringe) 12.5 gm PRN Q15MIN PRN 07/04/19 09:30 Digoxin (Lanoxin) 125 mcg 1X ONCE 07/07/19 18:00 07/07/19 18:01 DC 07/07/19 17:10 125 MCG Diphenhydramine HCl (Benadryl) 25 mg 1X PRN PRN 08/12/19 15:45 08/13/19 15:44 DC Enoxaparin Sodium (Lovenox 100mg Syringe) 100 mg Q12HR 08/09/19 21:00 UNV Etomidate (Amidate) 8 mg 1X ONCE 07/11/19 08:30 07/11/19 08:31 DC 07/11/19 08:33 8 MG Fentanyl Citrate (Fentanyl 2ml Vial) 100 mcg STK-MED ONCE 08/15/19 10:56 08/15/19 10:57 DC Furosemide (Lasix) 40 mg 1X ONCE 08/01/19 14:30 08/01/19 14:31 DC 08/01/19 14:39 40 MG Heparin Sodium (Porcine) (Hep Lock Adult) 500 unit STK-MED ONCE 07/26/19 09:29 07/26/19 09:30 DC Heparin Sodium (Porcine) (Heparin Sodium) 5,000 unit Q12HR 08/15/19 21:00 08/18/19 08:20 5,000 UNIT Heparin Sodium (Porcine) 1000 unit/Sodium Chloride 1,001 ml @ 1,001 mls/hr 1X ONCE 08/15/19 12:00 08/15/19 12:59 DC Hydromorphone HCl (Dilaudid Standard [employer]) 12 mg STK-MED ONCE 08/16/19 12:05 08/17/19 09:15 DC Hydromorphone HCl (Dilaudid) 1 mg PRN Q3HRS PRN 07/05/19 12:00 07/19/19 00:25 DC 07/11/19 05:13 1 MG Info (CONTRAST GIVEN -- Rx MONITORING) 1 each PRN DAILY PRN 07/18/19 11:45 07/20/19 11:44 DC Info (Icu Electrolyte Protocol) 1 ea CONT PRN PRN 07/17/19 13:15 Info (PHARMACY MONITORING -- do not chart) 1 each PRN DAILY PRN 08/12/19 15:45 Info (Tpn Per Pharmacy) 1 each PRN DAILY PRN 07/06/19 12:30 UNV Insulin Human Lispro (HumaLOG) 0-9 UNITS Q6HRS 07/04/19 09:30 08/16/19 08:42 4 UNITS Insulin Human Regular (HumuLIN R VIAL) 5 unit 1X ONCE 07/05/19 22:30 07/05/19 22:31 DC 07/05/19 22:14 5 UNIT Iohexol (Omnipaque 240 Mg/ml) 30 ml 1X ONCE 07/18/19 11:30 07/18/19 11:33 DC 07/18/19 11:30 30 ML Iohexol (Omnipaque 300 Mg/ml) 50 ml STK-MED ONCE 08/15/19 10:58 08/15/19 10:59 DC Iohexol (Omnipaque 350 Mg/ml) 90 ml 1X ONCE 07/04/19 03:30 3/16/20 03:31 DC 07/04/19 03:25 90 ML Ketorolac Tromethamine (Toradol 30mg Vial) 30 mg 1X ONCE 07/04/19 03:00 07/04/19 03:01 DC 07/04/19 02:54 30 MG Lidocaine HCl (Buffered Lidocaine 1%) 6 ml 1X ONCE 08/03/19 13:30 08/03/19 13:31 DC 08/03/19 13:45 9 ML Lidocaine HCl (Glydo (Lidocaine) Jelly) 1 ramu 1X ONCE 07/08/19 14:30 07/08/19 14:31 DC 07/08/19 16:38 1 RAMU Lidocaine HCl (Xylocaine-Mpf 1% 2ml Vial) 2 ml PRN 1X PRN 08/15/19 07:00 08/16/19 06:59 DC Linezolid/Dextrose 300 ml @ 300 mls/hr Q12HR 07/29/19 11:00 08/09/19 08:10 DC 08/08/19 20:40 300 MLS/HR Lorazepam (Ativan Inj) 1 mg PRN Q4HRS PRN 07/07/19 09:00 08/05/19 09:19 DC 08/05/19 03:51 1 MG Magnesium Sulfate 50 ml @ 25 mls/hr PRN DAILY PRN 07/24/19 09:15 08/08/19 17:27 25 MLS/HR Meropenem 1 gm/ Sodium Chloride 100 ml @ 200 mls/hr Q8HRS 08/16/19 14:00 08/18/19 06:23 200 MLS/HR Meropenem 500 mg/ Sodium Chloride 50 ml @ 100 mls/hr Q12H 07/27/19 10:00 08/16/19 12:37 DC 08/16/19 10:45 100 MLS/HR Metoprolol Tartrate (Lopressor Vial) 5 mg Q6HRS 07/05/19 10:15 07/16/19 08:48 DC 07/14/19 00:12 5 MG Metronidazole 100 ml @ 100 mls/hr Q8HRS 08/02/19 10:00 08/09/19 08:10 DC 08/09/19 06:04 100 MLS/HR Micafungin Sodium 100 mg/Dextrose 100 ml @ 100 mls/hr Q24H 07/11/19 09:00 08/18/19 08:18 100 MLS/HR Midazolam HCl (Versed) 5 mg 1X ONCE 07/11/19 08:30 07/11/19 08:31 DC Midazolam HCl 100 mg/Sodium Chloride 100 ml @ 7 mls/hr CONT PRN 07/16/19 16:00 07/27/19 15:35 7 MLS/HR Midazolam HCl 50 mg/Sodium Chloride 50 ml @ 0 mls/hr CONT PRN 07/11/19 08:15 07/16/19 15:59 DC 07/14/19 22:39 7 MLS/HR Morphine Sulfate (Morphine Sulfate) 2 mg PRN Q2HR PRN 07/04/19 05:00 07/05/19 14:15 DC 07/05/19 12:26 2 MG Multi-Ingred Cream/Lotion/Oil/ Oint (Artificial Tears Eye Ointment) 1 ramu PRN Q1HR PRN 07/13/19 17:30 08/01/19 08:19 1 RAMU Naloxone HCl (Narcan) 0.4 mg PRN Q2MIN PRN 08/15/19 14:30 UNV Norepinephrine Bitartrate 8 mg/ Dextrose 258 ml @ 17.299 mls/ hr CONT PRN 07/05/19 15:30 08/05/19 09:19 DC 08/02/19 12:48 20.9 MLS/HR Ondansetron HCl (Zofran) 4 mg STK-MED ONCE 08/15/19 10:56 08/15/19 10:57 DC Pantoprazole Sodium (PROTONIX VIAL for IV PUSH) 40 mg DAILYAC 07/04/19 11:30 08/18/19 08:17 40 MG Phenylephrine HCl (PHENYLEPHRINE in 0.9% NACL PF) 1 mg STK-MED ONCE 08/15/19 12:34 08/15/19 12:34 DC Piperacillin Sod/ Tazobactam Sod 4.5 gm/Sodium Chloride 100 ml @ 200 mls/hr 1X ONCE 07/04/19 06:00 07/04/19 06:29 DC 07/04/19 05:44 200 MLS/HR Potassium Chloride 15 meq/ Bicarbonate Dialysis Soln w/ out KCl 5,007.5 ml @ 1,000 mls/ hr Q5H1M 07/17/19 20:00 07/21/19 13:08 DC 07/20/19 18:14 1,000 MLS/HR Potassium Chloride 20 meq/ Bicarbonate Dialysis Soln w/ out KCl 5,010 ml @ 1,000 mls/hr Q5H1M 07/13/19 16:00 07/17/19 19:59 DC 07/17/19 14:54 1,000 MLS/HR Potassium Chloride/Water 100 ml @ 100 mls/hr 1X ONCE 08/06/19 14:45 08/06/19 15:44 DC 08/06/19 17:28 100 MLS/HR Potassium Phosphate 20 mmol/ Sodium Chloride 106.6667 ml @ 51.667 m... 1X ONCE 07/13/19 13:00 07/13/19 15:03 DC 07/13/19 12:51 51.667 MLS/HR Potassium Acetate 55 meq/Magnesium Sulfate 20 meq/ Calcium Gluconate 10 meq/ Multivitamins 10 ml/Chromium/ Copper/Manganese/ Seleni/Zn 0.5 ml/ Insulin Human Regular 35 unit/ Total Parenteral Nutrition/Amino Acids/Dextrose/ Fat Emulsion Intravenous 1,920 ml @ 80 mls/hr TPN CONT 08/16/19 22:00 08/17/19 21:59 DC 08/16/19 22:02 80 MLS/HR Potassium Acetate 65 meq/Magnesium Sulfate 20 meq/ Calcium Gluconate 10 meq/ Multivitamins 10 ml/Chromium/ Copper/Manganese/ Seleni/Zn 0.5 ml/ Insulin Human Regular 30 unit/ Total Parenteral Nutrition/Amino Acids/Dextrose/ Fat Emulsion Intravenous 1,920 ml @ 80 mls/hr TPN CONT 08/17/19 22:00 08/18/19 21:59 08/17/19 22:22 80 MLS/HR Prochlorperazine Edisylate (Compazine) 5 mg PACU PRN PRN 08/15/19 07:00 08/16/19 06:59 DC Propofol 20 ml @ As Directed STK-MED ONCE 08/15/19 12:26 08/15/19 12:27 DC Ringer's Solution 1,000 ml @ 30 mls/hr Q24H 08/15/19 07:00 08/15/19 18:59 DC Rocuronium [place] (Zemuron) 50 mg STK-MED ONCE 08/15/19 10:56 08/15/19 10:57 DC Sevoflurane (Ultane) 60 ml STK-MED ONCE 08/15/19 12:26 08/15/19 12:27 DC Sodium Bicarbonate 50 meq/Sodium Chloride 1,050 ml @ 75 mls/hr Q14H 07/06/19 07:30 07/11/19 10:28 DC 07/10/19 21:10 75 MLS/HR Sodium Acetate 50 meq/Potassium Acetate 55 meq/ Magnesium Sulfate 20 meq/Calcium Gluconate 10 meq/ Multivitamins 10 ml/Chromium/ Copper/Manganese/ Seleni/Zn 0.5 ml/ Insulin Human Regular 35 unit/ Total Parenteral Nutrition/Amino Acids/Dextrose/ Fat Emulsion Intravenous 1,800 ml @ 75 mls/hr TPN CONT 08/13/19 22:00 08/14/19 21:59 DC 08/13/19 22:03 75 MLS/HR Sodium Chloride 1,000 ml @ 25 mls/hr Q24H 08/15/19 14:30 UNV Sodium Chloride (Normal Saline Flush) 3 ml QSHIFT PRN 08/15/19 13:45 Sodium Chloride 90 meq/Calcium Gluconate 10 meq/ Multivitamins 10 ml/Chromium/ Copper/Manganese/ Seleni/Zn 0.5 ml/ Total Parenteral Nutrition/Amino Acids/Dextrose/ Fat Emulsion Intravenous 1,512 ml @ 63 mls/hr TPN CONT 07/06/19 22:00 07/07/19 21:59 DC 07/06/19 22:06 63 MLS/HR Sodium Chloride 90 meq/Calcium Gluconate 10 meq/ Multivitamins 10 ml/Chromium/ Copper/Manganese/ Seleni/Zn 1 ml/ Total Parenteral Nutrition/Amino Acids/Dextrose/ Fat Emulsion Intravenous 55.005 ml @ 2.292 mls/hr TPN CONT 07/06/19 22:00 07/06/19 12:33 DC Sodium Chloride 90 meq/Magnesium Sulfate 10 meq/ Calcium Gluconate 20 meq/ Multivitamins 10 ml/Chromium/ Copper/Manganese/ Seleni/Zn 0.5 ml/ Total Parenteral Nutrition/Amino Acids/Dextrose/ Fat Emulsion Intravenous 1,512 ml @ 63 mls/hr TPN CONT 07/07/19 22:00 07/08/19 21:59 DC 07/07/19 22:25 63 MLS/HR Sodium Chloride 90 meq/Magnesium Sulfate 12 meq/ Calcium Gluconate 15 meq/ Multivitamins 10 ml/Chromium/ Copper/Manganese/ Seleni/Zn 0.5 ml/ Insulin Human Regular 25 unit/ Total Parenteral Nutrition/Amino Acids/Dextrose/ Fat Emulsion Intravenous 1,400 ml @ 58.333 mls/ hr TPN CONT 07/27/19 22:00 07/28/19 21:59 DC 07/27/19 21:41 58.333 MLS/HR Sodium Chloride 90 meq/Potassium Chloride 15 meq/ Magnesium Sulfate 12 meq/Calcium Gluconate 15 meq/ Multivitamins 10 ml/Chromium/ Copper/Manganese/ Seleni/Zn 0.5 ml/ Insulin Human Regular 25 unit/ Total Parenteral Nutrition/Amino Acids/Dextrose/ Fat Emulsion Intravenous 1,400 ml @ 58.333 mls/ hr TPN CONT 07/26/19 22:00 07/27/19 21:59 DC 07/26/19 22:13 58.333 MLS/HR Sodium Chloride 90 meq/Potassium Chloride 15 meq/ Potassium Phosphate 10 mmol/ Magnesium Sulfate 8 meq/Calcium Gluconate 15 meq/ Multivitamins 10 ml/Chromium/ Copper/Manganese/ Seleni/Zn 0.5 ml/ Insulin Human Regular 25 unit/ Total Parenteral Nutrition/Amino Acids/Dextrose/ Fat Emulsion Intravenous 1,400 ml @ 58.333 mls/ hr TPN CONT 07/24/19 22:00 07/25/19 21:59 DC 07/24/19 21:20 58.333 MLS/HR Sodium Chloride 90 meq/Potassium Chloride 15 meq/ Potassium Phosphate 10 mmol/ Magnesium Sulfate 10 meq/Calcium Gluconate 20 meq/ Multivitamins 10 ml/Chromium/ Copper/Manganese/ Seleni/Zn 0.5 ml/ Total Parenteral Nutrition/Amino Acids/Dextrose/ Fat Emulsion Intravenous 1,400 ml @ 58.333 mls/ hr TPN CONT 07/11/19 22:00 07/12/19 21:59 DC 07/11/19 21:42 58.333 MLS/HR Sodium Chloride 90 meq/Potassium Chloride 15 meq/ Potassium Phosphate 10 mmol/ Magnesium Sulfate 12 meq/Calcium Gluconate 15 meq/ Multivitamins 10 ml/Chromium/ Copper/Manganese/ Seleni/Zn 0.5 ml/ Insulin Human Regular 25 unit/ Total Parenteral Nutrition/Amino Acids/Dextrose/ Fat Emulsion Intravenous 1,400 ml @ 58.333 mls/ hr TPN CONT 07/25/19 22:00 07/26/19 21:59 DC 07/25/19 22:24 58.333 MLS/HR Sodium Chloride 90 meq/Potassium Chloride 15 meq/ Potassium Phosphate 15 mmol/ Magnesium Sulfate 10 meq/Calcium Gluconate 15 meq/ Multivitamins 10 ml/Chromium/ Copper/Manganese/ Seleni/Zn 0.5 ml/ Total Parenteral Nutrition/Amino Acids/Dextrose/ Fat Emulsion Intravenous 1,400 ml @ 58.333 mls/ hr TPN CONT 07/12/19 22:00 07/13/19 21:59 DC 07/12/19 22:17 58.333 MLS/HR Sodium Chloride 90 meq/Potassium Chloride 15 meq/ Potassium Phosphate 15 mmol/ Magnesium Sulfate 10 meq/Calcium Gluconate 20 meq/ Multivitamins 10 ml/Chromium/ Copper/Manganese/ Seleni/Zn 0.5 ml/ Total Parenteral Nutrition/Amino Acids/Dextrose/ Fat Emulsion Intravenous 1,200 ml @ 50 mls/hr TPN CONT 07/10/19 22:00 07/10/19 14:17 DC Sodium Chloride 90 meq/Potassium Chloride 15 meq/ Potassium Phosphate 18 mmol/ Magnesium Sulfate 8 meq/Calcium Gluconate 15 meq/ Multivitamins 10 ml/Chromium/ Copper/Manganese/ Seleni/Zn 0.5 ml/ Insulin Human Regular 10 unit/ Total Parenteral Nutrition/Amino Acids/Dextrose/ Fat Emulsion Intravenous 1,400 ml @ 58.333 mls/ hr TPN CONT 07/15/19 22:00 07/16/19 21:59 DC 07/15/19 21:43 58.333 MLS/HR Sodium Chloride 90 meq/Potassium Chloride 15 meq/ Potassium Phosphate 18 mmol/ Magnesium Sulfate 8 meq/Calcium Gluconate 15 meq/ Multivitamins 10 ml/Chromium/ Copper/Manganese/ Seleni/Zn 0.5 ml/ Insulin Human Regular 15 unit/ Total Parenteral Nutrition/Amino Acids/Dextrose/ Fat Emulsion Intravenous 1,400 ml @ 58.333 mls/ hr TPN CONT 07/18/19 22:00 07/19/19 21:59 DC 07/18/19 21:47 58.333 MLS/HR Sodium Chloride 90 meq/Potassium Chloride 15 meq/ Potassium Phosphate 18 mmol/ Magnesium Sulfate 8 meq/Calcium Gluconate 15 meq/ Multivitamins 10 ml/Chromium/ Copper/Manganese/ Seleni/Zn 0.5 ml/ Insulin Human Regular 20 unit/ Total Parenteral Nutrition/Amino Acids/Dextrose/ Fat Emulsion Intravenous 1,400 ml @ 58.333 mls/ hr TPN CONT 07/21/19 22:00 07/22/19 21:59 DC 07/21/19 22:45 58.333 MLS/HR Sodium Chloride 90 meq/Potassium Chloride 15 meq/ Potassium Phosphate 18 mmol/ Magnesium Sulfate 8 meq/Calcium Gluconate 15 meq/ Multivitamins 10 ml/Chromium/ Copper/Manganese/ Seleni/Zn 0.5 ml/ Total Parenteral Nutrition/Amino Acids/Dextrose/ Fat Emulsion Intravenous 1,400 ml @ 58.333 mls/ hr TPN CONT 07/14/19 22:00 07/15/19 21:59 DC 07/14/19 22:00 58.333 MLS/HR Sodium Chloride 90 meq/Potassium Phosphate 15 mmol/ Magnesium Sulfate 12 meq/Calcium Gluconate 15 meq/ Multivitamins 10 ml/Chromium/ Copper/Manganese/ Seleni/Zn 0.5 ml/ Insulin Human Regular 30 unit/ Total Parenteral Nutrition/Amino Acids/Dextrose/ Fat Emulsion Intravenous 1,400 ml @ 58.333 mls/ hr TPN CONT 07/29/19 22:00 07/30/19 21:59 DC 07/29/19 21:49 58.333 MLS/HR Sodium Chloride 90 meq/Potassium Phosphate 15 mmol/ Magnesium Sulfate 12 meq/Calcium Gluconate 15 meq/ Multivitamins 10 ml/Chromium/ Copper/Manganese/ Seleni/Zn 0.5 ml/ Insulin Human Regular 40 unit/ Total Parenteral Nutrition/Amino Acids/Dextrose/ Fat Emulsion Intravenous 1,400 ml @ 58.333 mls/ hr TPN CONT 07/30/19 22:00 07/31/19 21:59 DC 07/30/19 21:21 58.333 MLS/HR Sodium Chloride 90 meq/Potassium Phosphate 19 mmol/ Magnesium Sulfate 12 meq/Calcium Gluconate 15 meq/ Multivitamins 10 ml/Chromium/ Copper/Manganese/ Seleni/Zn 0.5 ml/ Insulin Human Regular 40 unit/ Total Parenteral Nutrition/Amino Acids/Dextrose/ Fat Emulsion Intravenous 1,400 ml @ 58.333 mls/ hr TPN CONT 07/31/19 22:00 08/01/19 21:59 DC 07/31/19 21:54 58.333 MLS/HR Sodium Chloride 90 meq/Potassium Phosphate 5 mmol/ Magnesium Sulfate 12 meq/Calcium Gluconate 15 meq/ Multivitamins 10 ml/Chromium/ Copper/Manganese/ Seleni/Zn 0.5 ml/ Insulin Human Regular 30 unit/ Total Parenteral Nutrition/Amino Acids/Dextrose/ Fat Emulsion Intravenous 1,400 ml @ 58.333 mls/ hr TPN CONT 07/28/19 22:00 07/29/19 21:59 DC 07/28/19 22:08 58.333 MLS/HR Sodium Chloride 100 meq/Potassium Chloride 40 meq/ Magnesium Sulfate 15 meq/Calcium Gluconate 15 meq/ Multivitamins 10 ml/Chromium/ Copper/Manganese/ Seleni/Zn 0.5 ml/ Insulin Human Regular 35 unit/ Total Parenteral Nutrition/Amino Acids/Dextrose/ Fat Emulsion Intravenous 1,400 ml @ 58.333 mls/ hr TPN CONT 08/07/19 22:00 08/08/19 21:59 DC 08/07/19 22:46 58.333 MLS/HR Sodium Chloride 100 meq/Potassium Chloride 40 meq/ Magnesium Sulfate 20 meq/Calcium Gluconate 10 meq/ Multivitamins 10 ml/Chromium/ Copper/Manganese/ Seleni/Zn 0.5 ml/ Insulin Human Regular 35 unit/ Total Parenteral Nutrition/Amino Acids/Dextrose/ Fat Emulsion Intravenous 1,400 ml @ 58.333 mls/ hr TPN CONT 08/11/19 22:00 08/12/19 21:59 DC 08/12/19 00:06 58.333 MLS/HR Sodium Chloride 100 meq/Potassium Chloride 40 meq/ Magnesium Sulfate 20 meq/Calcium Gluconate 15 meq/ Multivitamins 10 ml/Chromium/ Copper/Manganese/ Seleni/Zn 0.5 ml/ Insulin Human Regular 35 unit/ Total Parenteral Nutrition/Amino Acids/Dextrose/ Fat Emulsion Intravenous 1,400 ml @ 58.333 mls/ hr TPN CONT 08/10/19 22:00 08/11/19 21:59 DC 08/10/19 22:27 58.333 MLS/HR Sodium Chloride 100 meq/Potassium Phosphate 10 mmol/ Magnesium Sulfate 12 meq/Calcium Gluconate 15 meq/ Multivitamins 10 ml/Chromium/ Copper/Manganese/ Seleni/Zn 0.5 ml/ Insulin Human Regular 35 unit/ Potassium Chloride 20 meq/ Total Parenteral Nutrition/Amino Acids/Dextrose/ Fat Emulsion Intravenous 1,400 ml @ 58.333 mls/ hr TPN CONT 08/04/19 22:00 08/05/19 21:59 DC 08/04/19 22:10 58.333 MLS/HR Sodium Chloride 100 meq/Potassium Phosphate 19 mmol/ Magnesium Sulfate 12 meq/Calcium Gluconate 15 meq/ Multivitamins 10 ml/Chromium/ Copper/Manganese/ Seleni/Zn 0.5 ml/ Insulin Human Regular 40 unit/ Potassium Chloride 20 meq/ Total Parenteral Nutrition/Amino Acids/Dextrose/ Fat Emulsion Intravenous 1,400 ml @ 58.333 mls/ hr TPN CONT 08/03/19 22:00 08/04/19 21:59 DC 08/03/19 21:20 58.333 MLS/HR Sodium Chloride 100 meq/Potassium Phosphate 5 mmol/ Magnesium Sulfate 12 meq/Calcium Gluconate 15 meq/ Multivitamins 10 ml/Chromium/ Copper/Manganese/ Seleni/Zn 0.5 ml/ Insulin Human Regular 35 unit/ Potassium Chloride 20 meq/ Total Parenteral Nutrition/Amino Acids/Dextrose/ Fat Emulsion Intravenous 1,400 ml @ 58.333 mls/ hr TPN CONT 08/05/19 22:00 08/06/19 21:59 DC 08/05/19 22:59 58.333 MLS/HR Succinylcholine Chloride (Anectine) 120 mg 1X ONCE 07/11/19 08:30 07/11/19 08:31 DC 07/11/19 08:34 120 MG Labs: Lab Laboratory Tests Test 08/17/19 12:25 08/17/19 17:07 08/18/19 00:34 08/18/19 08:20 Glucose (Fingerstick) 125 mg/dL (70-99) 133 mg/dL (70-99) 112 mg/dL (70-99) Sodium Level 152 mmol/L (136-145) Potassium Level 3.6 mmol/L (3.5-5.1) Chloride Level 113 mmol/L (98-107) Carbon Dioxide Level 33 mmol/L (21-32) Anion Gap 6 (6-14) Blood Urea Nitrogen 51 mg/dL (7-20) Creatinine 1.1 mg/dL (0.6-1.0) Estimated GFR (Cockcroft-Gault) 52.8 Glucose Level 119 mg/dL (70-99) Calcium Level 8.5 mg/dL (8.5-10.1) Objective: Assessment: Fever resolving Acute pancreatitis with persistent necrosis CT a/p 07/27 Increased ascites. 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 Leucocytosis improving JUANA,Hyperkalemia, Metabolic acidosis off dialysis Acute hypoxic resp failure ,bilateral pleural effusion and atelectasis hypocalcemia Prediabetes HTN s/p trach Plan: Plan of Care cont merrem (07/26), DC micafungin and daptomycin Central line to be removed today Bilateral upper extremity Doppler ultrasound neg for DVT Follow-up cultures and lab Monitor for abx toxicities. Maintain aspiration precautions PT and OT as tolerated D/w nursing YUNIOR JONES MD Aug 18, 2019 10:10
--- NOTE | 2019-08-18 10:24 | PDOC ---
Objective: Objective: Nurse reports ongoing improvement. Vital Signs: Vital Signs Date Time Temp Pulse Resp B/P (MAP) Pulse Ox O2 Delivery O2 Flow Rate FiO2 08/18/19 08:25 98 Ventilator 08/18/19 07:00 78 19 87/49 (62) 08/18/19 04:00 97.6 97.6 Labs: Laboratory Tests Test 08/17/19 12:25 08/17/19 17:07 08/18/19 00:34 08/18/19 08:20 Glucose (Fingerstick) 125 mg/dL 133 mg/dL 112 mg/dL Sodium Level 152 mmol/L Potassium Level 3.6 mmol/L Chloride Level 113 mmol/L Carbon Dioxide Level 33 mmol/L Anion Gap 6 Blood Urea Nitrogen 51 mg/dL Creatinine 1.1 mg/dL Estimated GFR (Cockcroft-Gault) 52.8 Glucose Level 119 mg/dL Calcium Level 8.5 mg/dL Imaging: UE US 08/16 IMPRESSION: 1. No thrombus identified in deep venous system of bilateral upper extremity. PE: GEN: NAD - she waved NEURO/PSYCH: A & O 3 A/P: Necrotizing pancreatitis -- Preparing for PICC placement when I saw, will follow-up later. Hemodynamically unstable?: No Is patient in severe pain?: No Is NPO status required?: Yes CYNDEE FALCON Aug 18, 2019 10:24
--- NOTE | 2019-08-18 10:30 | PDOC ---
PULMONARY PROGRESS NOTES Subjective Patient intubated on 07/10 , s/p trach 07/24, on vent Taken to the OR 08/14, NO SURGERY DONE / NOT A CANDIDATE DID TS FOR 1-2 HRS YESTERDAY Vitals Vital Signs Date Time Temp Pulse Resp B/P (MAP) Pulse Ox O2 Delivery O2 Flow Rate FiO2 08/18/19 08:25 98 Ventilator 08/18/19 07:00 78 19 87/49 (62) 08/18/19 04:00 97.6 97.6 Comments ros unable to obtain on vent General: Alert HEENT: Other (nc at perrl nose clear nech trach site ok no lad no thyromegaly) Lungs: Crackles Cardiovascular: S1, S2 Abdomen: Soft, Non-tender, Other (distended) Neuro Exam: Alert Extremities: Other (+3 generalized edema ) Skin: Warm, Dry Labs Laboratory Tests Test 08/16/19 12:08 08/16/19 18:44 08/16/19 23:40 08/17/19 06:10 Glucose (Fingerstick) 148 mg/dL (70-99) 116 mg/dL (70-99) 94 mg/dL (70-99) White Blood Count 10.4 x10^3/uL (4.0-11.0) Red Blood Count 2.51 x10^6/uL (3.50-5.40) Hemoglobin 7.4 g/dL (12.0-15.5) Hematocrit 22.9 % (36.0-47.0) Mean Corpuscular Volume 91 fL (79-100) Mean Corpuscular Hemoglobin 29 pg (25-35) Mean Corpuscular Hemoglobin Concent 32 g/dL (31-37) Red Cell Distribution Width 18.4 % (11.5-14.5) Platelet Count 439 x10^3/uL (140-400) Sodium Level 151 mmol/L (136-145) Potassium Level 3.6 mmol/L (3.5-5.1) Chloride Level 114 mmol/L (98-107) Carbon Dioxide Level 29 mmol/L (21-32) Anion Gap 8 (6-14) Blood Urea Nitrogen 58 mg/dL (7-20) Creatinine 1.0 mg/dL (0.6-1.0) Estimated GFR (Cockcroft-Gault) 58.9 Glucose Level 104 mg/dL (70-99) Calcium Level 8.2 mg/dL (8.5-10.1) Test 08/17/19 06:14 08/17/19 08:00 08/17/19 12:25 08/17/19 17:07 Glucose (Fingerstick) 87 mg/dL (70-99) 125 mg/dL (70-99) 133 mg/dL (70-99) White Blood Count 14.5 x10^3/uL (4.0-11.0) Red Blood Count 2.89 x10^6/uL (3.50-5.40) Hemoglobin 8.5 g/dL (12.0-15.5) Hematocrit 26.9 % (36.0-47.0) Mean Corpuscular Volume 93 fL (79-100) Mean Corpuscular Hemoglobin 29 pg (25-35) Mean Corpuscular Hemoglobin Concent 32 g/dL (31-37) Red Cell Distribution Width 18.5 % (11.5-14.5) Platelet Count 446 x10^3/uL (140-400) Test 08/18/19 00:34 08/18/19 08:20 Glucose (Fingerstick) 112 mg/dL (70-99) Sodium Level 152 mmol/L (136-145) Potassium Level 3.6 mmol/L (3.5-5.1) Chloride Level 113 mmol/L (98-107) Carbon Dioxide Level 33 mmol/L (21-32) Anion Gap 6 (6-14) Blood Urea Nitrogen 51 mg/dL (7-20) Creatinine 1.1 mg/dL (0.6-1.0) Estimated GFR (Cockcroft-Gault) 52.8 Glucose Level 119 mg/dL (70-99) Calcium Level 8.5 mg/dL (8.5-10.1) Laboratory Tests Test 08/17/19 12:25 08/17/19 17:07 08/18/19 00:34 08/18/19 08:20 Glucose (Fingerstick) 125 mg/dL (70-99) 133 mg/dL (70-99) 112 mg/dL (70-99) Sodium Level 152 mmol/L (136-145) Potassium Level 3.6 mmol/L (3.5-5.1) Chloride Level 113 mmol/L (98-107) Carbon Dioxide Level 33 mmol/L (21-32) Anion Gap 6 (6-14) Blood Urea Nitrogen 51 mg/dL (7-20) Creatinine 1.1 mg/dL (0.6-1.0) Estimated GFR (Cockcroft-Gault) 52.8 Glucose Level 119 mg/dL (70-99) Calcium Level 8.5 mg/dL (8.5-10.1) Medications Active Scripts Medications Dose Route/Sig Max Daily Dose Days Date Category Bisoprolol Fumarate 5 Mg Tablet 10 Mg PO DAILY 07/04/19 Reported Comments cxr reviewed. Impression . IMPRESSION: 1. Acute hypoxemic respiratory failure secondary to ARDS status post trach, 2. Gallstone pancreatitis 3. Severe metabolic acidosis.stable 4. Acute kidney injury-stable, ON HD-- continue to improve 5. Acute gallstone pancreatitis. 6. Hypoalbuminemia. 7. Moderate persistent effusions 8. Fever- Per ID, per surgery 9. Chronic anemia 10. Covid 19 testing negative 11. Moderate to large ascites-S/P paracentisis S/P paracentisis with 4 liters removed on 08/03/19 Surgery note Operative Note: After obtaining informed consent, patient was taken to OR, induced under GETA a nd prepped in the usual fashion. 5 mm port placed umbilical and right mid abdomen, all under laparoscopic guidance. Large amount of ascites encountered and aspirated off. Fluid was clear with some whitish debris. Viscera was completely locked in with obliteration of all planes, preventing any significant exploration. Copious irrigation. Given patient's overall clinical improvement, favor against open procedure and attempt at cholecystectomy and/or necrosectomy, given high risk of complications. Cholecystectomy will need to be performed, but favor waiting 3 months. 19 KAYLIN drain placed and secured with 3 0 nylon. Skin repaired with 4 0 monocryl. Dressing placed. Patient tolerated procedure well and sent to PACU in stable condition. All counts correct. Wound class is 4. Plan . We will continue our efforts at weaning Resume TS trials, extend duration precedex for anxiety Follow surgery input hep sq and protonix for prophylaxis Follow ID rec, abx per id Follow nephrology recs Nutritional support per surgery continue TPN for nutrition DVT/GI PPX d/w RN/RT VINAYAK LANDRUM MD Aug 18, 2019 10:30
[2019-08-18] MEDS: TPN PER PHARMACY MC PRN (10:51)
--- NOTE | 2019-08-18 11:05 | NUR ---
Pharmacy TPN Dosing Note S: SCOTT AVILA is a 48 year old F Currently receiving Central Continuous TPN started 07/06/19 B:Pertinent PMH: Necrotizing pancreatitis Height: 5 feet, 8 inches Weight: 110.5 kg Current diet: NPO LABS: Sodium: 152 Potassium: 3.6 Chloride: 113 Calcium: 8.5 Corrected Calcium: 9.54 Magnesium: 2 CO2: 33 SCr: 1.1 Glucose: 119 Albumin: 2.7 AST: 23 ALT: 11 TPN FORMULA: TPN TYPE: Central Continuous AMINO ACIDS: 125 gm DEXTROSE: 225 gm LIPIDS: 20 gm SODIUM CHLORIDE: - mEq SODIUM ACETATE: - mEq SODIUM PHOSPHATE: - mmol POTASSIUM CHLORIDE: - mEq POTASSIUM ACETATE: 55 mEq POTASSIUM PHOSPHATE: - mmol MAGNESIUM: 20 mEq CALCIUM: 10 mEq INSULIN: 30 units MULTIPLE VITAMIN: 10 ml TRACE ELEMENTS: 0.5 ml(s) TPN PLAN: decrease kacetate to 55 meq/bag. R: Continue TPN at 80 ml/hr Will monitor electrolytes, glucose, and tolerance to TPN. KRISTIAN APODACA RPH, 08/18/19 1106Pharmacy TPN Dosing Note S: SCOTT AVILA is a 48 year old F Currently receiving Central Continuous TPN started 07/06/19 B:Pertinent PMH: Necrotizing pancreatitis Height: 5 feet, 8 inches Weight: 110.5 kg Current diet: NPO LABS: Sodium: 152 Potassium: 3.6 Chloride: 113 Calcium: 8.5 Corrected Calcium: 9.54 Magnesium: 2 CO2: 33 SCr: 1.1 Glucose: 119 Albumin: 2.7 AST: 23 ALT: 11 TPN FORMULA: TPN TYPE: Central Continuous AMINO ACIDS: 125 gm DEXTROSE: 225 gm LIPIDS: 20 gm SODIUM CHLORIDE: - mEq SODIUM ACETATE: - mEq SODIUM PHOSPHATE: - mmol POTASSIUM CHLORIDE: - mEq POTASSIUM ACETATE: 55 mEq POTASSIUM PHOSPHATE: - mmol MAGNESIUM: 20 mEq CALCIUM: 10 mEq INSULIN: 30 units MULTIPLE VITAMIN: 10 ml TRACE ELEMENTS: 0.5 ml(s) TPN PLAN: decrease kacetate to 55 meq/bag. R: [g RX.ACTION] TPN [] Will monitor electrolytes, glucose, and tolerance to TPN. KRISTIAN APODACA RPH, 08/18/19 1106
--- NOTE | 2019-08-18 11:37 | PDOC ---
SURGICAL PROGRESS NOTE Subjective Pt awake on vent, responsive Vital Signs Vital Signs Date Time Temp Pulse Resp B/P (MAP) Pulse Ox O2 Delivery O2 Flow Rate FiO2 08/18/19 11:17 97 Tracheal Collar 10.0 08/18/19 07:00 78 19 87/49 (62) 08/18/19 04:00 97.6 97.6 I&O Intake and Output 08/18/19 07:00 Intake Total 2946.0 ml Output Total 5610 ml Balance -2664.0 ml Intake Oral 0 ml IV Total 2946.0 ml Output Urine Total 5540 ml Drainage Total 70 ml General: Alert, Cooperative, No acute distress Abdomen: Soft, No tenderness Labs Laboratory Tests Test 08/16/19 12:08 08/16/19 18:44 08/16/19 23:40 08/17/19 06:10 Glucose (Fingerstick) 148 mg/dL (70-99) 116 mg/dL (70-99) 94 mg/dL (70-99) White Blood Count 10.4 x10^3/uL (4.0-11.0) Red Blood Count 2.51 x10^6/uL (3.50-5.40) Hemoglobin 7.4 g/dL (12.0-15.5) Hematocrit 22.9 % (36.0-47.0) Mean Corpuscular Volume 91 fL (79-100) Mean Corpuscular Hemoglobin 29 pg (25-35) Mean Corpuscular Hemoglobin Concent 32 g/dL (31-37) Red Cell Distribution Width 18.4 % (11.5-14.5) Platelet Count 439 x10^3/uL (140-400) Sodium Level 151 mmol/L (136-145) Potassium Level 3.6 mmol/L (3.5-5.1) Chloride Level 114 mmol/L (98-107) Carbon Dioxide Level 29 mmol/L (21-32) Anion Gap 8 (6-14) Blood Urea Nitrogen 58 mg/dL (7-20) Creatinine 1.0 mg/dL (0.6-1.0) Estimated GFR (Cockcroft-Gault) 58.9 Glucose Level 104 mg/dL (70-99) Calcium Level 8.2 mg/dL (8.5-10.1) Test 08/17/19 06:14 08/17/19 08:00 08/17/19 12:25 08/17/19 17:07 Glucose (Fingerstick) 87 mg/dL (70-99) 125 mg/dL (70-99) 133 mg/dL (70-99) White Blood Count 14.5 x10^3/uL (4.0-11.0) Red Blood Count 2.89 x10^6/uL (3.50-5.40) Hemoglobin 8.5 g/dL (12.0-15.5) Hematocrit 26.9 % (36.0-47.0) Mean Corpuscular Volume 93 fL (79-100) Mean Corpuscular Hemoglobin 29 pg (25-35) Mean Corpuscular Hemoglobin Concent 32 g/dL (31-37) Red Cell Distribution Width 18.5 % (11.5-14.5) Platelet Count 446 x10^3/uL (140-400) Test 08/18/19 00:34 08/18/19 08:20 Glucose (Fingerstick) 112 mg/dL (70-99) Sodium Level 152 mmol/L (136-145) Potassium Level 3.6 mmol/L (3.5-5.1) Chloride Level 113 mmol/L (98-107) Carbon Dioxide Level 33 mmol/L (21-32) Anion Gap 6 (6-14) Blood Urea Nitrogen 51 mg/dL (7-20) Creatinine 1.1 mg/dL (0.6-1.0) Estimated GFR (Cockcroft-Gault) 52.8 Glucose Level 119 mg/dL (70-99) Calcium Level 8.5 mg/dL (8.5-10.1) Laboratory Tests Test 08/17/19 12:25 08/17/19 17:07 08/18/19 00:34 08/18/19 08:20 Glucose (Fingerstick) 125 mg/dL (70-99) 133 mg/dL (70-99) 112 mg/dL (70-99) Sodium Level 152 mmol/L (136-145) Potassium Level 3.6 mmol/L (3.5-5.1) Chloride Level 113 mmol/L (98-107) Carbon Dioxide Level 33 mmol/L (21-32) Anion Gap 6 (6-14) Blood Urea Nitrogen 51 mg/dL (7-20) Creatinine 1.1 mg/dL (0.6-1.0) Estimated GFR (Cockcroft-Gault) 52.8 Glucose Level 119 mg/dL (70-99) Calcium Level 8.5 mg/dL (8.5-10.1) Problem List Problems Medical Problems: (1) Acute pancreatitis Status: Acute (2) Cholelithiasis Status: Acute Assessment/Plan s/p lap exp continues to improve will clamp NGT and work towards removal will ask speech to eval and consider work towards PO intake. DAVON SIMMS MD Aug 18, 2019 11:37
[2019-08-18 12:17] LABS: HEMATOCRIT 24.5 % (36.0-47.0); HEMOGLOBIN 7.7 g/dL (12.0-15.5); RED BLOOD COUNT 2.66 x10^6/uL (3.50-5.40); RED CELL DISTRIBUTION WIDTH 18.6 % (11.5-14.5); WHITE BLOOD COUNT 11.3 x10^3/uL (4.0-11.0)
[2019-08-18] MEDS ORDERED: MAGNESIUM SULFATE 2GM 50 ML IV ONE (12:45)
--- NOTE | 2019-08-18 12:47 | PDOC ---
Renal-Progress Notes Subjective Notes Notes SITTING UP History of Present Illness Hx of present illness STABLE Vitals Vitals Vital Signs Date Time Temp Pulse Resp B/P (MAP) Pulse Ox O2 Delivery O2 Flow Rate FiO2 08/18/19 12:00 101.0 98 22 139/64 (89) 98 Tracheal Collar 101.0 08/18/19 11:17 10.0 Weight Weight [ ] I.O. Intake and Output Intake and Output 08/18/19 07:00 Intake Total 2946.0 ml Output Total 5610 ml Balance -2664.0 ml Intake Oral 0 ml IV Total 2946.0 ml Output Urine Total 5540 ml Drainage Total 70 ml Labs Labs Laboratory Tests Test 08/17/19 17:07 08/18/19 00:34 08/18/19 08:20 08/18/19 12:10 Glucose (Fingerstick) 133 mg/dL (70-99) 112 mg/dL (70-99) 169 mg/dL (70-99) White Blood Count 11.3 x10^3/uL (4.0-11.0) Red Blood Count 2.66 x10^6/uL (3.50-5.40) Hemoglobin 7.7 g/dL (12.0-15.5) Hematocrit 24.5 % (36.0-47.0) Mean Corpuscular Volume 92 fL (79-100) Mean Corpuscular Hemoglobin 29 pg (25-35) Mean Corpuscular Hemoglobin Concent 32 g/dL (31-37) Red Cell Distribution Width 18.6 % (11.5-14.5) Platelet Count 411 x10^3/uL (140-400) Sodium Level 152 mmol/L (136-145) Potassium Level 3.6 mmol/L (3.5-5.1) Chloride Level 113 mmol/L (98-107) Carbon Dioxide Level 33 mmol/L (21-32) Anion Gap 6 (6-14) Blood Urea Nitrogen 51 mg/dL (7-20) Creatinine 1.1 mg/dL (0.6-1.0) Estimated GFR (Cockcroft-Gault) 52.8 Glucose Level 119 mg/dL (70-99) Calcium Level 8.5 mg/dL (8.5-10.1) Magnesium Level 1.7 mg/dL (1.8-2.4) Micro Micro Microbiology 08/03/19 Aerobic and Anaerobic Culture - Final, Complete 08/03/19 Anaerobic Culture Result 1 (ALEXANDRA) - Final, Complete 08/03/19 Aerobic Culture - Final, Complete 08/03/19 Aerobic Culture Result 1 (ALEXANDRA) - Final, Complete 08/03/19 Gram Stain - Final, Complete 08/03/19 Gram Stain Result 1 (ALEXANDRA) - Final, Complete 08/03/19 Gram Stain Result 2 (ALEXANDRA) - Final, Complete 08/02/19 Blood Culture - Final, Complete NO GROWTH AFTER 5 DAYS 07/31/19 Urine Culture - Final, Complete 07/31/19 Urine Culture Result 1 (ALEXANDRA) - Final, Complete Review of Systems Constitutional: yes: other (ON THE VENT) Physical Exam General Appearance: other (ON THE VENT, TRACH) Skin: warm Respiratory: decreased breath sounds Heart: S1S2 Abdomen: soft, bowel sounds present Genitourinary: bladder flat Extremities: pulses present, edema Neurology: alert, oriented, other Assessment Assessment IMP FEVER AND LEUCOCYTOSIS-?SEPSIS HYPERNATREMIA [id number] IMPROVED AND OFF HD FOR NOW ANEMIA ANASARCA DUE TO 3RD SPACING HYPERKALEMIA-RESOLVED ACIDOSIS AND ACIDEMIA-RESOLVED ACUTE REPS FAILURE-TRACH ACUTE PANCREATITIS MALNUTRITION PLAN CONT TO HOLD HD FOR NOW TPN TO CONTINUE NEEDED PRBC NEEDED START HIRAM IF NEEDED VENT SUPPORT CONT IV LASIX ANTIBIOTICS-ID EVAL AND TX WILL NEED LTAC UPDATED FAMILY WILL FOLLOW HAS GOOD NEG FLUID BALANCE LAST COUPLE DAYS WILL CONT WITH DIURESIS REHAB SOON DONI GARCIA MD Aug 18, 2019 12:47
[2019-08-18] MEDS: DAPTOmycin (GENERIC) IVPB 430 MG in IV NORMAL SALINE 50ML 50 ML IV SCH (13:00)
--- NOTE | 2019-08-18 13:05 | NUR ---
Order received from Dr. Hamilton to place patient on speaking valve. Patient tolerating trach shield well since 1100, SpO2 97%. ST stated she would work with patient when tolerating speaking valve well. Anxiety is well controlled today, RN able to decrease Precedex gtt. Patient is currently sitting in chair. Was able to stand for short moment w/ walker, PT. Patient's daughter, Marce, is at bedside. Brought patient her cell phone, shampoo.
[2019-08-18] MEDS ORDERED: HYDROmorphone STANDARD PCA 12 MG/30 ML SYRINGE. IV ONE (13:47)
--- NOTE | 2019-08-18 15:53 | NUR ---
SS following up with discharge planning. Pt's daughter, Marce, in room. SS met with pt and pt's daughter in room. Pt's daughter forwarded court documents to SS. Documents sent to [facility] and case management consulting. Copies placed in chart. Pt's daughter understanding that pt does not qualify for Medicaid and cannot get to rehab facility as self pay pt. Pt's daughter understanding she may need to take pt home when medically stable. SS communicated with [facility] and they are working to complete disability application. Dr. Taylor completing physician statement. Pt on IV antibiotics and TPN. Pt has trach. Not medically stable for discharge to home per physician. SS will continue to follow for discharge planning.
[2019-08-18] MEDS: HYDROmorphone 12mg/30ml PCA 30 ML IV PRN (17:20)
--- NOTE | 2019-08-18 18:53 | NUR ---
Patient on trach shield since 1100. Tolerating well. Verified with Dr. Hamilton that patient is fine to remain on trach shield through night if patient continues to tolerate well. NG has been clamped since 1130. Order received from Dr. Villanueva to give 2gm Mg IV. Patient transferred back to bed. Tolerated well. Currently sleeping. LIJ sent to lab for culture. MATTEO PICC working appropriately, placement verified by Parris LE.
[2019-08-18] MEDS ORDERED: TOTAL PARENTERAL NUTRITION IV SCH ×9 (22:00)
[2019-08-18] MEDS ORDERED: AMINO ACID IV SCH ×9 (22:00)
[2019-08-18] MEDS ORDERED: [UNRECOGNIZED DRUG - OTHER] IV SCH ×9 (22:00)
[2019-08-18] MEDS ORDERED: DEXTROSE 70% IV SCH ×9 (22:00)
[2019-08-19] VITALS (24 sets, daily range): BP systolic 90–198; BP diastolic 48–111
[2019-08-19] MEDS: DEXMEDETOMIDINE 400 MCG in IV NORMAL SALINE 100ML 96 ML IV PRN ×6 (00:56→20:37)
[2019-08-19] MEDS: MEROPENEM 1 GM in IV NORMAL SALINE 100ML 100 ML IV SCH ×3 (05:11→21:39)
[2019-08-19] MEDS: INSULIN LISPRO 300 UNITS/3 ML VIAL. SQ SCH ×4 (06:00→17:32)
[2019-08-19 06:42] LABS: BASO % 0 % (0-3); EOS # 0.1 x10^3/uL (0.0-0.7); EOS % 1 % (0-3); HEMATOCRIT 25.3 % (36.0-47.0); HEMOGLOBIN 8.1 g/dL (12.0-15.5); LYMPH # 2.2 x10^3/uL (1.0-4.8); LYMPH % 15 % (24-48); MEAN CORPUSCULAR HEMOGLOBIN 29 pg (25-35); MEAN CORPUSCULAR HGB CONC 32 g/dL (31-37); MEAN CORPUSCULAR VOLUME 91 fL (79-100); MONO # 0.5 x10^3/uL (0.0-1.1); MONO % 4 % (0-9); NEUT # 11.7 x10^3/uL (1.8-7.7); NEUT % 80 % (31-73); PLATELET COUNT 442 x10^3/uL (140-400); RED BLOOD COUNT 2.78 x10^6/uL (3.50-5.40); RED CELL DISTRIBUTION WIDTH 18.7 % (11.5-14.5); WHITE BLOOD COUNT 14.7 x10^3/uL (4.0-11.0)
[2019-08-19 07:00] LABS: CALCIUM 8.7 mg/dL (8.5-10.1); CREATININE 0.9 mg/dL (0.6-1.0); GFR 66.5; POTASSIUM 3.3 mmol/L (3.5-5.1)
[2019-08-19 07:05] LABS: MAGNESIUM 1.8 mg/dL (1.8-2.4); PHOSPHORUS 4.6 mg/dL (2.6-4.7)
--- NOTE | 2019-08-19 07:43 | PDOC ---
Infectious Disease Note Subjective: Subjective Pt feels better Had temp of 101 yesterday, came down without any antipyretic on trach with vent On TPN Vital Signs: Vital Signs Vital Signs Date Time Temp Pulse Resp B/P (MAP) Pulse Ox O2 Delivery O2 Flow Rate FiO2 08/19/19 07:05 98 Tracheal Collar 10.0 08/19/19 06:00 98.3 130 40 154/79 (104) 98.3 Physical Exam: PHYSICAL EXAM GENERAL: Propped up in bed, sedated weak appearing HEENT: Pupils equal, + NGT, oral cavity dry NECK: Trach/vent LUNGS: rhonchi HEART: S1, S2, regular ABDOMEN: Distended, hypoactive BS, drain placement (08/14 ) : Lind (08/01) EXTREMITIES: Generalized edema, no cyanosis, SCDs bilaterally DERMATOLOGIC: Warm and dry. No generalized rash. CENTRAL NERVOUS SYSTEM: Extremely weak, nods to few simple questions PICC line in place August 18, 2019 clean HDC has been removed LIJ removed Medications: Inpatient Meds: Current Medications Medications (Trade) Dose Ordered Sig/Yvon Start Time Stop Time Status Last Admin Dose Admin Acetaminophen (Tylenol Supp) 650 mg PRN Q6HRS PRN 07/12/19 10:30 08/15/19 00:32 650 MG Acetaminophen (Tylenol) 650 mg PRN Q6HRS PRN 07/09/19 03:36 08/04/19 19:56 650 MG Albumin Human 200 ml @ 200 mls/hr 1X PRN PRN 08/09/19 08:00 08/09/19 13:59 DC 08/09/19 08:40 200 MLS/HR Albuterol Sulfate (Ventolin Neb Soln) 2.5 mg 1X ONCE 07/05/19 22:30 07/05/19 22:31 DC 07/06/19 00:56 2.5 MG Alteplase, Recombinant (Cathflo For Central Catheter Clearance) 1 mg 1X ONCE 08/12/19 10:45 08/12/19 10:46 DC 08/12/19 11:44 1 MG Amino Acids/ Glycerin/ Electrolytes 1,000 ml @ 75 mls/hr [id number] 08/08/19 21:15 UNV Artificial Tears (Artificial Tears) 1 drop PRN Q15MIN PRN 08/17/19 05:30 08/18/19 08:16 1 DROP Atenolol (Tenormin) 100 mg DAILY 07/05/19 09:00 07/04/19 20:08 DC Atropine Sulfate (ATROPINE 0.5mg SYRINGE) 0.5 mg PRN Q5MIN PRN 07/21/19 08:15 Benzocaine (Hurricaine One) 1 spray 1X ONCE 07/08/19 14:30 07/08/19 14:31 DC 07/08/19 16:38 1 SPRAY Bisacodyl (Dulcolax Supp) 10 mg STK-MED ONCE 08/15/19 10:59 08/15/19 10:59 DC Bumetanide (Bumex) 2 mg [id number] 08/16/19 14:00 08/18/19 13:01 2 MG Bupivacaine HCl/ Epinephrine Bitart (Sensorcain-Epi 0.5%-1:037222 Mpf) 30 ml STK-MED ONCE 08/15/19 10:58 08/15/19 10:58 DC 08/15/19 12:01 7 ML Calcium Carbonate/ Glycine (Tums) 500 mg PRN [id number] PRN 07/06/19 17:45 Calcium Chloride 1000 mg/Sodium Chloride 110 ml @ 220 mls/hr 1X ONCE 07/05/19 22:30 07/05/19 22:59 DC 07/05/19 22:11 220 MLS/HR Calcium Chloride 3000 mg/Sodium Chloride 1,030 ml @ 50 mls/hr [id number] 07/07/19 08:00 07/09/19 15:23 DC 07/09/19 02:17 50 MLS/HR Calcium Gluconate (Calcium Gluconate) 2,000 mg 1X ONCE 07/07/19 02:15 07/07/19 02:16 DC 07/07/19 02:19 2,000 MG Calcium Gluconate 1000 mg/Sodium Chloride 110 ml @ 220 mls/hr 1X ONCE 07/06/19 03:30 07/06/19 03:59 DC 07/06/19 03:21 220 MLS/HR Calcium Gluconate 2000 mg/Sodium Chloride 120 ml @ 220 mls/hr 1X ONCE 07/06/19 07:30 07/06/19 08:02 DC 07/06/19 09:05 220 MLS/HR Cefepime HCl (Maxipime) 2 gm Q12HR 07/13/19 09:00 07/27/19 09:58 DC 07/26/19 20:56 2 GM Cellulose (Surgicel Fibrillar 1x2) 1 each STK-MED ONCE 07/25/19 11:00 07/25/19 11:01 DC Cellulose (Surgicel Hemostat 2x14) 1 each STK-MED ONCE 08/15/19 10:58 08/15/19 10:59 DC Cellulose (Surgicel Hemostat 4x8) 1 each STK-MED ONCE 08/15/19 10:58 08/15/19 10:59 DC Cyclobenzaprine HCl (Flexeril) 10 mg PRN Q6HRS PRN 08/18/19 10:45 Daptomycin 430 mg/ Sodium Chloride 50 ml @ 100 mls/hr Q24H 08/13/19 13:00 08/18/19 20:58 DC 08/18/19 13:00 100 MLS/HR Daptomycin 500 mg/ Sodium Chloride 50 ml @ 100 mls/hr Q48H 07/13/19 08:30 07/29/19 10:07 DC 07/29/19 09:57 100 MLS/HR Dexamethasone Sodium Phosphate (Decadron) 4 mg STK-MED ONCE 08/15/19 10:56 08/15/19 10:57 DC Dexmedetomidine HCl 400 mcg/ Sodium Chloride 100 ml @ 0 mls/hr CONT PRN 07/21/19 08:15 08/19/19 05:10 22.2 MLS/HR Dextrose (Dextrose 50%-Water Syringe) 12.5 gm PRN Q15MIN PRN 07/04/19 09:30 Digoxin (Lanoxin) 125 mcg 1X ONCE 07/07/19 18:00 07/07/19 18:01 DC 07/07/19 17:10 125 MCG Diphenhydramine HCl (Benadryl) 25 mg 1X PRN PRN 08/12/19 15:45 08/13/19 15:44 DC Enoxaparin Sodium (Lovenox 100mg Syringe) 100 mg Q12HR 08/09/19 21:00 UNV Etomidate (Amidate) 8 mg 1X ONCE 07/11/19 08:30 07/11/19 08:31 DC 07/11/19 08:33 8 MG Fentanyl Citrate (Fentanyl 2ml Vial) 100 mcg STK-MED ONCE 08/15/19 10:56 08/15/19 10:57 DC Furosemide (Lasix) 40 mg 1X ONCE 08/01/19 14:30 08/01/19 14:31 DC 08/01/19 14:39 40 MG Heparin Sodium (Porcine) (Hep Lock Adult) 500 unit STK-MED ONCE 07/26/19 09:29 07/26/19 09:30 DC Heparin Sodium (Porcine) (Heparin Sodium) 5,000 unit Q12HR 08/15/19 21:00 08/18/19 21:22 5,000 UNIT Heparin Sodium (Porcine) 1000 unit/Sodium Chloride 1,001 ml @ 1,001 mls/hr 1X ONCE 08/15/19 12:00 08/15/19 12:59 DC Hydromorphone HCl (Dilaudid Standard [employer]) 12 mg STK-MED ONCE 08/16/19 12:05 08/17/19 09:15 DC Hydromorphone HCl (Dilaudid) 1 mg PRN Q3HRS PRN 07/05/19 12:00 07/19/19 00:25 DC 07/11/19 05:13 1 MG Info (CONTRAST GIVEN -- Rx MONITORING) 1 each PRN DAILY PRN 07/18/19 11:45 07/20/19 11:44 DC Info (Icu Electrolyte Protocol) 1 ea CONT PRN PRN 07/17/19 13:15 Info (PHARMACY MONITORING -- do not chart) 1 each PRN DAILY PRN 08/12/19 15:45 Info (Tpn Per Pharmacy) 1 each PRN DAILY PRN 07/06/19 12:30 UNV Insulin Human Lispro (HumaLOG) 0-9 UNITS Q6HRS 07/04/19 09:30 08/18/19 17:29 4 UNITS Insulin Human Regular (HumuLIN R VIAL) 5 unit 1X ONCE 07/05/19 22:30 07/05/19 22:31 DC 07/05/19 22:14 5 UNIT Iohexol (Omnipaque 240 Mg/ml) 30 ml 1X ONCE 07/18/19 11:30 07/18/19 11:33 DC 07/18/19 11:30 30 ML Iohexol (Omnipaque 300 Mg/ml) 50 ml STK-MED ONCE 08/15/19 10:58 08/15/19 10:59 DC Iohexol (Omnipaque 350 Mg/ml) 90 ml 1X ONCE 07/04/19 03:30 07/04/19 03:31 DC 07/04/19 03:25 90 ML Ketorolac Tromethamine (Toradol 30mg Vial) 30 mg 1X ONCE 07/04/19 03:00 07/04/19 03:01 DC 07/04/19 02:54 30 MG Lidocaine HCl (Buffered Lidocaine 1%) 6 ml 1X ONCE 08/03/19 13:30 08/03/19 13:31 DC 08/03/19 13:45 9 ML Lidocaine HCl (Glydo (Lidocaine) Jelly) 1 ramu 1X ONCE 07/08/19 14:30 07/08/19 14:31 DC 07/08/19 16:38 1 RAMU Lidocaine HCl (Xylocaine-Mpf 1% 2ml Vial) 2 ml PRN 1X PRN 08/15/19 07:00 08/16/19 06:59 DC Linezolid/Dextrose 300 ml @ 300 mls/hr Q12HR 07/29/19 11:00 08/09/19 08:10 DC 08/08/19 20:40 300 MLS/HR Lorazepam (Ativan Inj) 1 mg PRN Q4HRS PRN 07/07/19 09:00 08/05/19 09:19 DC 08/05/19 03:51 1 MG Magnesium Sulfate 50 ml @ 25 mls/hr 1X ONCE 08/18/19 12:45 08/18/19 14:44 DC 08/18/19 17:18 25 MLS/HR Meropenem 1 gm/ Sodium Chloride 100 ml @ 200 mls/hr Q8HRS 08/16/19 14:00 08/19/19 05:11 200 MLS/HR Meropenem 500 mg/ Sodium Chloride 50 ml @ 100 mls/hr Q12H 07/27/19 10:00 08/16/19 12:37 DC 08/16/19 10:45 100 MLS/HR Metoprolol Tartrate (Lopressor Vial) 5 mg Q6HRS 07/05/19 10:15 07/16/19 08:48 DC 07/14/19 00:12 5 MG Metronidazole 100 ml @ 100 mls/hr Q8HRS 08/02/19 10:00 08/09/19 08:10 DC 08/09/19 06:04 100 MLS/HR Micafungin Sodium 100 mg/Dextrose 100 ml @ 100 mls/hr Q24H 07/11/19 09:00 08/18/19 20:58 DC 08/18/19 08:18 100 MLS/HR Midazolam HCl (Versed) 5 mg 1X ONCE 07/11/19 08:30 07/11/19 08:31 DC Midazolam HCl 100 mg/Sodium Chloride 100 ml @ 7 mls/hr CONT PRN 07/16/19 16:00 07/27/19 15:35 7 MLS/HR Midazolam HCl 50 mg/Sodium Chloride 50 ml @ 0 mls/hr CONT PRN 07/11/19 08:15 07/16/19 15:59 DC 07/14/19 22:39 7 MLS/HR Morphine Sulfate (Morphine Sulfate) 2 mg PRN Q2HR PRN 07/04/19 05:00 07/05/19 14:15 DC 07/05/19 12:26 2 MG Multi-Ingred Cream/Lotion/Oil/ Oint (Artificial Tears Eye Ointment) 1 ramu PRN Q1HR PRN 07/13/19 17:30 08/01/19 08:19 1 RAMU Naloxone HCl (Narcan) 0.4 mg PRN Q2MIN PRN 08/15/19 14:30 UNV Norepinephrine Bitartrate 8 mg/ Dextrose 258 ml @ 17.299 mls/ hr CONT PRN 07/05/19 15:30 08/05/19 09:19 DC 08/02/19 12:48 20.9 MLS/HR Ondansetron HCl (Zofran) 4 mg STK-MED ONCE 08/15/19 10:56 08/15/19 10:57 DC Pantoprazole Sodium (PROTONIX VIAL for IV PUSH) 40 mg DAILYAC 07/04/19 11:30 08/18/19 08:17 40 MG Phenylephrine HCl (PHENYLEPHRINE in 0.9% NACL PF) 1 mg STK-MED ONCE 08/15/19 12:34 08/15/19 12:34 DC Piperacillin Sod/ Tazobactam Sod 4.5 gm/Sodium Chloride 100 ml @ 200 mls/hr 1X ONCE 07/04/19 06:00 07/04/19 06:29 DC 07/04/19 05:44 200 MLS/HR Potassium Chloride 15 meq/ Bicarbonate Dialysis Soln w/ out KCl 5,007.5 ml @ 1,000 mls/ hr Q5H1M 07/17/19 20:00 07/21/19 13:08 DC 07/20/19 18:14 1,000 MLS/HR Potassium Chloride 20 meq/ Bicarbonate Dialysis Soln w/ out KCl 5,010 ml @ 1,000 mls/hr Q5H1M 07/13/19 16:00 07/17/19 19:59 DC 07/17/19 14:54 1,000 MLS/HR Potassium Chloride/Water 100 ml @ 100 mls/hr 1X ONCE 08/06/19 14:45 08/06/19 15:44 DC 08/06/19 17:28 100 MLS/HR Potassium Phosphate 20 mmol/ Sodium Chloride 106.6667 ml @ 51.667 m... 1X ONCE 07/13/19 13:00 07/13/19 15:03 DC 07/13/19 12:51 51.667 MLS/HR Potassium Acetate 55 meq/Magnesium Sulfate 20 meq/ Calcium Gluconate 10 meq/ Multivitamins 10 ml/Chromium/ Copper/Manganese/ Seleni/Zn 0.5 ml/ Insulin Human Regular 30 unit/ Total Parenteral Nutrition/Amino Acids/Dextrose/ Fat Emulsion Intravenous 1,920 ml @ 80 mls/hr TPN CONT 08/18/19 22:00 08/19/19 21:59 08/19/19 01:00 80 MLS/HR Potassium Acetate 55 meq/Magnesium Sulfate 20 meq/ Calcium Gluconate 10 meq/ Multivitamins 10 ml/Chromium/ Copper/Manganese/ Seleni/Zn 0.5 ml/ Insulin Human Regular 35 unit/ Total Parenteral Nutrition/Amino Acids/Dextrose/ Fat Emulsion Intravenous 1,920 ml @ 80 mls/hr TPN CONT 08/16/19 22:00 08/17/19 21:59 DC 08/16/19 22:02 80 MLS/HR Potassium Acetate 65 meq/Magnesium Sulfate 20 meq/ Calcium Gluconate 10 meq/ Multivitamins 10 ml/Chromium/ Copper/Manganese/ Seleni/Zn 0.5 ml/ Insulin Human Regular 30 unit/ Total Parenteral Nutrition/Amino Acids/Dextrose/ Fat Emulsion Intravenous 1,920 ml @ 80 mls/hr TPN CONT 08/17/19 22:00 08/18/19 21:59 DC 08/17/19 22:22 80 MLS/HR Prochlorperazine Edisylate (Compazine) 5 mg PACU PRN PRN 08/15/19 07:00 08/16/19 06:59 DC Propofol 20 ml @ As Directed STK-MED ONCE 08/15/19 12:26 08/15/19 12:27 DC Ringer's Solution 1,000 ml @ 30 mls/hr Q24H 08/15/19 07:00 08/15/19 18:59 DC Rocuronium [place] (Zemuron) 50 mg STK-MED ONCE 08/15/19 10:56 08/15/19 10:57 DC Sevoflurane (Ultane) 60 ml STK-MED ONCE 08/15/19 12:26 08/15/19 12:27 DC Sodium Bicarbonate 50 meq/Sodium Chloride 1,050 ml @ 75 mls/hr Q14H 07/06/19 07:30 07/11/19 10:28 DC 07/10/19 21:10 75 MLS/HR Sodium Acetate 50 meq/Potassium Acetate 55 meq/ Magnesium Sulfate 20 meq/Calcium Gluconate 10 meq/ Multivitamins 10 ml/Chromium/ Copper/Manganese/ Seleni/Zn 0.5 ml/ Insulin Human Regular 35 unit/ Total Parenteral Nutrition/Amino Acids/Dextrose/ Fat Emulsion Intravenous 1,800 ml @ 75 mls/hr TPN CONT 08/13/19 22:00 08/14/19 21:59 DC 08/13/19 22:03 75 MLS/HR Sodium Chloride 1,000 ml @ 25 mls/hr Q24H 08/15/19 14:30 UNV Sodium Chloride (Normal Saline Flush) 3 ml QSHIFT PRN 08/15/19 13:45 Sodium Chloride 90 meq/Calcium Gluconate 10 meq/ Multivitamins 10 ml/Chromium/ Copper/Manganese/ Seleni/Zn 0.5 ml/ Total Parenteral Nutrition/Amino Acids/Dextrose/ Fat Emulsion Intravenous 1,512 ml @ 63 mls/hr TPN CONT 07/06/19 22:00 07/07/19 21:59 DC 07/06/19 22:06 63 MLS/HR Sodium Chloride 90 meq/Calcium Gluconate 10 meq/ Multivitamins 10 ml/Chromium/ Copper/Manganese/ Seleni/Zn 1 ml/ Total Parenteral Nutrition/Amino Acids/Dextrose/ Fat Emulsion Intravenous 55.005 ml @ 2.292 mls/hr TPN CONT 07/06/19 22:00 07/06/19 12:33 DC Sodium Chloride 90 meq/Magnesium Sulfate 10 meq/ Calcium Gluconate 20 meq/ Multivitamins 10 ml/Chromium/ Copper/Manganese/ Seleni/Zn 0.5 ml/ Total Parenteral Nutrition/Amino Acids/Dextrose/ Fat Emulsion Intravenous 1,512 ml @ 63 mls/hr TPN CONT 07/07/19 22:00 07/08/19 21:59 DC 07/07/19 22:25 63 MLS/HR Sodium Chloride 90 meq/Magnesium Sulfate 12 meq/ Calcium Gluconate 15 meq/ Multivitamins 10 ml/Chromium/ Copper/Manganese/ Seleni/Zn 0.5 ml/ Insulin Human Regular 25 unit/ Total Parenteral Nutrition/Amino Acids/Dextrose/ Fat Emulsion Intravenous 1,400 ml @ 58.333 mls/ hr TPN CONT 07/27/19 22:00 07/28/19 21:59 DC 07/27/19 21:41 58.333 MLS/HR Sodium Chloride 90 meq/Potassium Chloride 15 meq/ Magnesium Sulfate 12 meq/Calcium Gluconate 15 meq/ Multivitamins 10 ml/Chromium/ Copper/Manganese/ Seleni/Zn 0.5 ml/ Insulin Human Regular 25 unit/ Total Parenteral Nutrition/Amino Acids/Dextrose/ Fat Emulsion Intravenous 1,400 ml @ 58.333 mls/ hr TPN CONT 07/26/19 22:00 07/27/19 21:59 DC 07/26/19 22:13 58.333 MLS/HR Sodium Chloride 90 meq/Potassium Chloride 15 meq/ Potassium Phosphate 10 mmol/ Magnesium Sulfate 8 meq/Calcium Gluconate 15 meq/ Multivitamins 10 ml/Chromium/ Copper/Manganese/ Seleni/Zn 0.5 ml/ Insulin Human Regular 25 unit/ Total Parenteral Nutrition/Amino Acids/Dextrose/ Fat Emulsion Intravenous 1,400 ml @ 58.333 mls/ hr TPN CONT 07/24/19 22:00 07/25/19 21:59 DC 07/24/19 21:20 58.333 MLS/HR Sodium Chloride 90 meq/Potassium Chloride 15 meq/ Potassium Phosphate 10 mmol/ Magnesium Sulfate 10 meq/Calcium Gluconate 20 meq/ Multivitamins 10 ml/Chromium/ Copper/Manganese/ Seleni/Zn 0.5 ml/ Total Parenteral Nutrition/Amino Acids/Dextrose/ Fat Emulsion Intravenous 1,400 ml @ 58.333 mls/ hr TPN CONT 07/11/19 22:00 07/12/19 21:59 DC 07/11/19 21:42 58.333 MLS/HR Sodium Chloride 90 meq/Potassium Chloride 15 meq/ Potassium Phosphate 10 mmol/ Magnesium Sulfate 12 meq/Calcium Gluconate 15 meq/ Multivitamins 10 ml/Chromium/ Copper/Manganese/ Seleni/Zn 0.5 ml/ Insulin Human Regular 25 unit/ Total Parenteral Nutrition/Amino Acids/Dextrose/ Fat Emulsion Intravenous 1,400 ml @ 58.333 mls/ hr TPN CONT 07/25/19 22:00 07/26/19 21:59 DC 07/25/19 22:24 58.333 MLS/HR Sodium Chloride 90 meq/Potassium Chloride 15 meq/ Potassium Phosphate 15 mmol/ Magnesium Sulfate 10 meq/Calcium Gluconate 15 meq/ Multivitamins 10 ml/Chromium/ Copper/Manganese/ Seleni/Zn 0.5 ml/ Total Parenteral Nutrition/Amino Acids/Dextrose/ Fat Emulsion Intravenous 1,400 ml @ 58.333 mls/ hr TPN CONT 07/12/19 22:00 07/13/19 21:59 DC 07/12/19 22:17 58.333 MLS/HR Sodium Chloride 90 meq/Potassium Chloride 15 meq/ Potassium Phosphate 15 mmol/ Magnesium Sulfate 10 meq/Calcium Gluconate 20 meq/ Multivitamins 10 ml/Chromium/ Copper/Manganese/ Seleni/Zn 0.5 ml/ Total Parenteral Nutrition/Amino Acids/Dextrose/ Fat Emulsion Intravenous 1,200 ml @ 50 mls/hr TPN CONT 07/10/19 22:00 07/10/19 14:17 DC Sodium Chloride 90 meq/Potassium Chloride 15 meq/ Potassium Phosphate 18 mmol/ Magnesium Sulfate 8 meq/Calcium Gluconate 15 meq/ Multivitamins 10 ml/Chromium/ Copper/Manganese/ Seleni/Zn 0.5 ml/ Insulin Human Regular 10 unit/ Total Parenteral Nutrition/Amino Acids/Dextrose/ Fat Emulsion Intravenous 1,400 ml @ 58.333 mls/ hr TPN CONT 07/15/19 22:00 07/16/19 21:59 DC 07/15/19 21:43 58.333 MLS/HR Sodium Chloride 90 meq/Potassium Chloride 15 meq/ Potassium Phosphate 18 mmol/ Magnesium Sulfate 8 meq/Calcium Gluconate 15 meq/ Multivitamins 10 ml/Chromium/ Copper/Manganese/ Seleni/Zn 0.5 ml/ Insulin Human Regular 15 unit/ Total Parenteral Nutrition/Amino Acids/Dextrose/ Fat Emulsion Intravenous 1,400 ml @ 58.333 mls/ hr TPN CONT 07/18/19 22:00 07/19/19 21:59 DC 07/18/19 21:47 58.333 MLS/HR Sodium Chloride 90 meq/Potassium Chloride 15 meq/ Potassium Phosphate 18 mmol/ Magnesium Sulfate 8 meq/Calcium Gluconate 15 meq/ Multivitamins 10 ml/Chromium/ Copper/Manganese/ Seleni/Zn 0.5 ml/ Insulin Human Regular 20 unit/ Total Parenteral Nutrition/Amino Acids/Dextrose/ Fat Emulsion Intravenous 1,400 ml @ 58.333 mls/ hr TPN CONT 07/21/19 22:00 07/22/19 21:59 DC 07/21/19 22:45 58.333 MLS/HR Sodium Chloride 90 meq/Potassium Chloride 15 meq/ Potassium Phosphate 18 mmol/ Magnesium Sulfate 8 meq/Calcium Gluconate 15 meq/ Multivitamins 10 ml/Chromium/ Copper/Manganese/ Seleni/Zn 0.5 ml/ Total Parenteral Nutrition/Amino Acids/Dextrose/ Fat Emulsion Intravenous 1,400 ml @ 58.333 mls/ hr TPN CONT 07/14/19 22:00 07/15/19 21:59 DC 07/14/19 22:00 58.333 MLS/HR Sodium Chloride 90 meq/Potassium Phosphate 15 mmol/ Magnesium Sulfate 12 meq/Calcium Gluconate 15 meq/ Multivitamins 10 ml/Chromium/ Copper/Manganese/ Seleni/Zn 0.5 ml/ Insulin Human Regular 30 unit/ Total Parenteral Nutrition/Amino Acids/Dextrose/ Fat Emulsion Intravenous 1,400 ml @ 58.333 mls/ hr TPN CONT 07/29/19 22:00 07/30/19 21:59 DC 07/29/19 21:49 58.333 MLS/HR Sodium Chloride 90 meq/Potassium Phosphate 15 mmol/ Magnesium Sulfate 12 meq/Calcium Gluconate 15 meq/ Multivitamins 10 ml/Chromium/ Copper/Manganese/ Seleni/Zn 0.5 ml/ Insulin Human Regular 40 unit/ Total Parenteral Nutrition/Amino Acids/Dextrose/ Fat Emulsion Intravenous 1,400 ml @ 58.333 mls/ hr TPN CONT 07/30/19 22:00 07/31/19 21:59 DC 07/30/19 21:21 58.333 MLS/HR Sodium Chloride 90 meq/Potassium Phosphate 19 mmol/ Magnesium Sulfate 12 meq/Calcium Gluconate 15 meq/ Multivitamins 10 ml/Chromium/ Copper/Manganese/ Seleni/Zn 0.5 ml/ Insulin Human Regular 40 unit/ Total Parenteral Nutrition/Amino Acids/Dextrose/ Fat Emulsion Intravenous 1,400 ml @ 58.333 mls/ hr TPN CONT 07/31/19 22:00 08/01/19 21:59 DC 07/31/19 21:54 58.333 MLS/HR Sodium Chloride 90 meq/Potassium Phosphate 5 mmol/ Magnesium Sulfate 12 meq/Calcium Gluconate 15 meq/ Multivitamins 10 ml/Chromium/ Copper/Manganese/ Seleni/Zn 0.5 ml/ Insulin Human Regular 30 unit/ Total Parenteral Nutrition/Amino Acids/Dextrose/ Fat Emulsion Intravenous 1,400 ml @ 58.333 mls/ hr TPN CONT 07/28/19 22:00 07/29/19 21:59 DC 07/28/19 22:08 58.333 MLS/HR Sodium Chloride 100 meq/Potassium Chloride 40 meq/ Magnesium Sulfate 15 meq/Calcium Gluconate 15 meq/ Multivitamins 10 ml/Chromium/ Copper/Manganese/ Seleni/Zn 0.5 ml/ Insulin Human Regular 35 unit/ Total Parenteral Nutrition/Amino Acids/Dextrose/ Fat Emulsion Intravenous 1,400 ml @ 58.333 mls/ hr TPN CONT 08/07/19 22:00 08/08/19 21:59 DC 08/07/19 22:46 58.333 MLS/HR Sodium Chloride 100 meq/Potassium Chloride 40 meq/ Magnesium Sulfate 20 meq/Calcium Gluconate 10 meq/ Multivitamins 10 ml/Chromium/ Copper/Manganese/ Seleni/Zn 0.5 ml/ Insulin Human Regular 35 unit/ Total Parenteral Nutrition/Amino Acids/Dextrose/ Fat Emulsion Intravenous 1,400 ml @ 58.333 mls/ hr TPN CONT 08/11/19 22:00 08/12/19 21:59 DC 08/12/19 00:06 58.333 MLS/HR Sodium Chloride 100 meq/Potassium Chloride 40 meq/ Magnesium Sulfate 20 meq/Calcium Gluconate 15 meq/ Multivitamins 10 ml/Chromium/ Copper/Manganese/ Seleni/Zn 0.5 ml/ Insulin Human Regular 35 unit/ Total Parenteral Nutrition/Amino Acids/Dextrose/ Fat Emulsion Intravenous 1,400 ml @ 58.333 mls/ hr TPN CONT 08/10/19 22:00 08/11/19 21:59 DC 08/10/19 22:27 58.333 MLS/HR Sodium Chloride 100 meq/Potassium Phosphate 10 mmol/ Magnesium Sulfate 12 meq/Calcium Gluconate 15 meq/ Multivitamins 10 ml/Chromium/ Copper/Manganese/ Seleni/Zn 0.5 ml/ Insulin Human Regular 35 unit/ Potassium Chloride 20 meq/ Total Parenteral Nutrition/Amino Acids/Dextrose/ Fat Emulsion Intravenous 1,400 ml @ 58.333 mls/ hr TPN CONT 08/04/19 22:00 08/05/19 21:59 DC 08/04/19 22:10 58.333 MLS/HR Sodium Chloride 100 meq/Potassium Phosphate 19 mmol/ Magnesium Sulfate 12 meq/Calcium Gluconate 15 meq/ Multivitamins 10 ml/Chromium/ Copper/Manganese/ Seleni/Zn 0.5 ml/ Insulin Human Regular 40 unit/ Potassium Chloride 20 meq/ Total Parenteral Nutrition/Amino Acids/Dextrose/ Fat Emulsion Intravenous 1,400 ml @ 58.333 mls/ hr TPN CONT 08/03/19 22:00 08/04/19 21:59 DC 08/03/19 21:20 58.333 MLS/HR Sodium Chloride 100 meq/Potassium Phosphate 5 mmol/ Magnesium Sulfate 12 meq/Calcium Gluconate 15 meq/ Multivitamins 10 ml/Chromium/ Copper/Manganese/ Seleni/Zn 0.5 ml/ Insulin Human Regular 35 unit/ Potassium Chloride 20 meq/ Total Parenteral Nutrition/Amino Acids/Dextrose/ Fat Emulsion Intravenous 1,400 ml @ 58.333 mls/ hr TPN CONT 08/05/19 22:00 08/06/19 21:59 DC 08/05/19 22:59 58.333 MLS/HR Succinylcholine Chloride (Anectine) 120 mg 1X ONCE 07/11/19 08:30 07/11/19 08:31 DC 07/11/19 08:34 120 MG Labs: Lab Laboratory Tests Test 08/18/19 08:20 08/18/19 12:10 08/18/19 17:26 08/19/19 00:59 White Blood Count 11.3 x10^3/uL (4.0-11.0) Red Blood Count 2.66 x10^6/uL (3.50-5.40) Hemoglobin 7.7 g/dL (12.0-15.5) Hematocrit 24.5 % (36.0-47.0) Mean Corpuscular Volume 92 fL (79-100) Mean Corpuscular Hemoglobin 29 pg (25-35) Mean Corpuscular Hemoglobin Concent 32 g/dL (31-37) Red Cell Distribution Width 18.6 % (11.5-14.5) Platelet Count 411 x10^3/uL (140-400) Sodium Level 152 mmol/L (136-145) Potassium Level 3.6 mmol/L (3.5-5.1) Chloride Level 113 mmol/L (98-107) Carbon Dioxide Level 33 mmol/L (21-32) Anion Gap 6 (6-14) Blood Urea Nitrogen 51 mg/dL (7-20) Creatinine 1.1 mg/dL (0.6-1.0) Estimated GFR (Cockcroft-Gault) 52.8 Glucose Level 119 mg/dL (70-99) Calcium Level 8.5 mg/dL (8.5-10.1) Magnesium Level 1.7 mg/dL (1.8-2.4) Glucose (Fingerstick) 169 mg/dL (70-99) 152 mg/dL (70-99) 152 mg/dL (70-99) Test 08/19/19 06:27 08/19/19 06:30 Glucose (Fingerstick) 139 mg/dL (70-99) White Blood Count 14.7 x10^3/uL (4.0-11.0) Red Blood Count 2.78 x10^6/uL (3.50-5.40) Hemoglobin 8.1 g/dL (12.0-15.5) Hematocrit 25.3 % (36.0-47.0) Mean Corpuscular Volume 91 fL (79-100) Mean Corpuscular Hemoglobin 29 pg (25-35) Mean Corpuscular Hemoglobin Concent 32 g/dL (31-37) Red Cell Distribution Width 18.7 % (11.5-14.5) Platelet Count 442 x10^3/uL (140-400) Neutrophils (%) (Auto) 80 % (31-73) Lymphocytes (%) (Auto) 15 % (24-48) Monocytes (%) (Auto) 4 % (0-9) Eosinophils (%) (Auto) 1 % (0-3) Basophils (%) (Auto) 0 % (0-3) Neutrophils # (Auto) 11.7 x10^3/uL (1.8-7.7) Lymphocytes # (Auto) 2.2 x10^3/uL (1.0-4.8) Monocytes # (Auto) 0.5 x10^3/uL (0.0-1.1) Eosinophils # (Auto) 0.1 x10^3/uL (0.0-0.7) Basophils # (Auto) 0.0 x10^3/uL (0.0-0.2) Sodium Level 153 mmol/L (136-145) Potassium Level 3.3 mmol/L (3.5-5.1) Chloride Level 111 mmol/L (98-107) Carbon Dioxide Level 33 mmol/L (21-32) Anion Gap 9 (6-14) Blood Urea Nitrogen 47 mg/dL (7-20) Creatinine 0.9 mg/dL (0.6-1.0) Estimated GFR (Cockcroft-Gault) 66.5 Glucose Level 150 mg/dL (70-99) Calcium Level 8.7 mg/dL (8.5-10.1) Phosphorus Level 4.6 mg/dL (2.6-4.7) Magnesium Level 1.8 mg/dL (1.8-2.4) Objective: Assessment: Fever intermittent could be from underlying pancreatitis Acute pancreatitis with persistent necrosis CT a/p 07/27 Increased ascites. 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 Leucocytosis improving JUANA,Hyperkalemia, Metabolic acidosis off dialysis Acute hypoxic resp failure ,bilateral pleural effusion and atelectasis hypocalcemia Prediabetes HTN s/p trach Plan: Plan of Care fever could be from underlying pancreatitis cont merrem (07/26), off micafungin and daptomycin 08/17 Patient has been on empiric broad-spectrum antibiotics since admission Low threshold to restart above antibiotics if patient has any hemodynamic instability or recurrence of fever Central line has been removed Bilateral upper extremity Doppler ultrasound neg for DVT Follow-up cultures and lab Monitor for abx toxicities. Maintain aspiration precautions PT and OT as tolerated Patient remains critically ill D/w nursing YUNIOR JONES MD August 19, 2019 07:43
--- NOTE | 2019-08-19 08:47 | PDOC ---
SURGICAL PROGRESS NOTE Subjective Pt reportedly didn't sleep well last night and currently asleep, appears comfortable Vital Signs Vital Signs Date Time Temp Pulse Resp B/P (MAP) Pulse Ox O2 Delivery O2 Flow Rate FiO2 08/19/19 07:05 98 Tracheal Collar 10.0 08/19/19 06:00 98.3 130 40 154/79 (104) 98.3 I&O Intake and Output 08/19/19 07:00 Intake Total 2526 ml Output Total 6785 ml Balance -4259 ml Intake Oral 0 ml IV Total 2526 ml Output Urine Total 6740 ml Drainage Total 45 ml PATIENT HAS A ROSARIO: Yes (accurate i and os) General: No acute distress Labs Laboratory Tests Test 08/17/19 12:25 08/17/19 17:07 08/18/19 00:34 08/18/19 08:20 Glucose (Fingerstick) 125 mg/dL (70-99) 133 mg/dL (70-99) 112 mg/dL (70-99) White Blood Count 11.3 x10^3/uL (4.0-11.0) Red Blood Count 2.66 x10^6/uL (3.50-5.40) Hemoglobin 7.7 g/dL (12.0-15.5) Hematocrit 24.5 % (36.0-47.0) Mean Corpuscular Volume 92 fL (79-100) Mean Corpuscular Hemoglobin 29 pg (25-35) Mean Corpuscular Hemoglobin Concent 32 g/dL (31-37) Red Cell Distribution Width 18.6 % (11.5-14.5) Platelet Count 411 x10^3/uL (140-400) Sodium Level 152 mmol/L (136-145) Potassium Level 3.6 mmol/L (3.5-5.1) Chloride Level 113 mmol/L (98-107) Carbon Dioxide Level 33 mmol/L (21-32) Anion Gap 6 (6-14) Blood Urea Nitrogen 51 mg/dL (7-20) Creatinine 1.1 mg/dL (0.6-1.0) Estimated GFR (Cockcroft-Gault) 52.8 Glucose Level 119 mg/dL (70-99) Calcium Level 8.5 mg/dL (8.5-10.1) Magnesium Level 1.7 mg/dL (1.8-2.4) Test 4/30/20 12:10 08/18/19 17:26 08/19/19 00:59 08/19/19 06:27 Glucose (Fingerstick) 169 mg/dL (70-99) 152 mg/dL (70-99) 152 mg/dL (70-99) 139 mg/dL (70-99) Test 08/19/19 06:30 White Blood Count 14.7 x10^3/uL (4.0-11.0) Red Blood Count 2.78 x10^6/uL (3.50-5.40) Hemoglobin 8.1 g/dL (12.0-15.5) Hematocrit 25.3 % (36.0-47.0) Mean Corpuscular Volume 91 fL (79-100) Mean Corpuscular Hemoglobin 29 pg (25-35) Mean Corpuscular Hemoglobin Concent 32 g/dL (31-37) Red Cell Distribution Width 18.7 % (11.5-14.5) Platelet Count 442 x10^3/uL (140-400) Neutrophils (%) (Auto) 80 % (31-73) Lymphocytes (%) (Auto) 15 % (24-48) Monocytes (%) (Auto) 4 % (0-9) Eosinophils (%) (Auto) 1 % (0-3) Basophils (%) (Auto) 0 % (0-3) Neutrophils # (Auto) 11.7 x10^3/uL (1.8-7.7) Lymphocytes # (Auto) 2.2 x10^3/uL (1.0-4.8) Monocytes # (Auto) 0.5 x10^3/uL (0.0-1.1) Eosinophils # (Auto) 0.1 x10^3/uL (0.0-0.7) Basophils # (Auto) 0.0 x10^3/uL (0.0-0.2) Sodium Level 153 mmol/L (136-145) Potassium Level 3.3 mmol/L (3.5-5.1) Chloride Level 111 mmol/L (98-107) Carbon Dioxide Level 33 mmol/L (21-32) Anion Gap 9 (6-14) Blood Urea Nitrogen 47 mg/dL (7-20) Creatinine 0.9 mg/dL (0.6-1.0) Estimated GFR (Cockcroft-Gault) 66.5 Glucose Level 150 mg/dL (70-99) Calcium Level 8.7 mg/dL (8.5-10.1) Phosphorus Level 4.6 mg/dL (2.6-4.7) Magnesium Level 1.8 mg/dL (1.8-2.4) Laboratory Tests Test 08/18/19 12:10 08/18/19 17:26 08/19/19 00:59 08/19/19 06:27 Glucose (Fingerstick) 169 mg/dL (70-99) 152 mg/dL (70-99) 152 mg/dL (70-99) 139 mg/dL (70-99) Test 08/19/19 06:30 White Blood Count 14.7 x10^3/uL (4.0-11.0) Red Blood Count 2.78 x10^6/uL (3.50-5.40) Hemoglobin 8.1 g/dL (12.0-15.5) Hematocrit 25.3 % (36.0-47.0) Mean Corpuscular Volume 91 fL (79-100) Mean Corpuscular Hemoglobin 29 pg (25-35) Mean Corpuscular Hemoglobin Concent 32 g/dL (31-37) Red Cell Distribution Width 18.7 % (11.5-14.5) Platelet Count 442 x10^3/uL (140-400) Neutrophils (%) (Auto) 80 % (31-73) Lymphocytes (%) (Auto) 15 % (24-48) Monocytes (%) (Auto) 4 % (0-9) Eosinophils (%) (Auto) 1 % (0-3) Basophils (%) (Auto) 0 % (0-3) Neutrophils # (Auto) 11.7 x10^3/uL (1.8-7.7) Lymphocytes # (Auto) 2.2 x10^3/uL (1.0-4.8) Monocytes # (Auto) 0.5 x10^3/uL (0.0-1.1) Eosinophils # (Auto) 0.1 x10^3/uL (0.0-0.7) Basophils # (Auto) 0.0 x10^3/uL (0.0-0.2) Sodium Level 153 mmol/L (136-145) Potassium Level 3.3 mmol/L (3.5-5.1) Chloride Level 111 mmol/L (98-107) Carbon Dioxide Level 33 mmol/L (21-32) Anion Gap 9 (6-14) Blood Urea Nitrogen 47 mg/dL (7-20) Creatinine 0.9 mg/dL (0.6-1.0) Estimated GFR (Cockcroft-Gault) 66.5 Glucose Level 150 mg/dL (70-99) Calcium Level 8.7 mg/dL (8.5-10.1) Phosphorus Level 4.6 mg/dL (2.6-4.7) Magnesium Level 1.8 mg/dL (1.8-2.4) Problem List Problems Medical Problems: (1) Acute pancreatitis Status: Acute (2) Cholelithiasis Status: Acute Assessment/Plan s/p lap exp cont supportive care once awake and interactive, will consider d/c NGT and trial of PO per speech. DAVON SIMMS MD August 19, 2019 08:47
--- NOTE | 2019-08-19 09:04 | PDOC ---
PROGRESS NOTES Chief Complaint Chief Complaint Acute hypoxic Respiratory failure requiring mechanical ventilation (on vent since 07/10) Tracheostomy bilateral pleural effusions/pulm edema Sepsis Severe Acute gallstone pancreatitis (not a surgical candidate at this time) with necrosis Acute kidney failure now requiring dialysis Salpingitis Gallstones (Calculus of gallbladder with acute cholecystitis without obstruction) HTN Leukocytosis Hypoxia Uterine fibroid Intractable pain Intractable nausea Covid 19 negative. Acute on chronic anemia EEG: No seizure activity ESRD on HD Hyperglycemia History of Present Illness History of Present Illness Ms Diaz is a 48yo F w/ PMHx HTN, prediabetes who presented to the emergency room with complaints of abdominal pain on 07/04/2019. Found with Lipase 52578, AST 401, ALT 249, Bilirubin 1.4. CT abdomen confirms pancreatic inflammation, peripancreatic fluid and inflammatory changes around the pancreas consistent with pancreatitis. Cholelithiasis and 1.4cm uterine fibroid as well as possible left salpingitis. Admitted for further care GI, General surgery, ID, Pulm consulted. 07/04: PICC placed per IR. Renal US negative. Started on levophed. Repeat CT abdomen w/ necrosis; 07/05: Dialysis catheter per nephrology; 07/06: On BiPAP; 07/07: BiPAP, dialysis; 07/08: Overnight Tmax 101.7 , still on BiPAP FiO2 40%, still on low dose Levophed gtt, TPN initiated. On dialysis 07/24: Tracheostomy; 07/30: S/p tracheostomy on vent spontaneous respirations with 5 of pressure support 35% FiO2, rectal tube and a Lind, off pressors; 08/01:Still on vent via trach. Removed PICC and CVC LIJ and replaced. CT chest/abd/pelvis with bilateral pleural effusion and ascites. 08/02: Renal function stable. Still on vent. More interactive today. Miming wish for food. Plan discussed for thoracentesis/paracentesis with daughters today. They were under impression patient was doing worse due to a miscommunication which has been clarified over the phone. 4.3L removed. 08/04: Febrile overnight 101.8F. More interactive, still on vent. Asking for ice by miming; 08/05: Afebrile overnight. TMax last 24 hours 100.6F. Hb 7.1. Interactive when awake. 08/09: Transfusion 1u PRBC (6U total since admit) 08/10-08/13: TPN and precedex, vent. 08/14: Tmax 101F overnight. Hb 8.2. HD cath out since 08/11. Alert. On vent SIMV 35% FiO2. Surgery: ex-lap, no rnoel or pancreatic necrosectomy 2/2 profound inflammation. 08/15: Seen POD #1. Afebrile overnight. BUN 62. CBC WNL today.Remains on vent via trach, TPN. Able to point today and indicate she wishes her daughters and Jamaal to be involved in her care. 08/16: Hb 7.4, Na 151. Remains on vent via trach, TPN. off HD for now. Not tolerating trach shield well. 08/17: Negative US for UE DVT. More relaxed today. Has some increase in UOP. Tolerating vent well. She is requesting to eat and drink via writing. T max 100F 24 hours ago, but 101F at 1200. Right PICC placed. Speaking valve for half the day in [facility] Na 153 today. Good UOP. Tmax 101F at 1200 on 08/17. She becomes a bit anxious and did not sleep much last night, wishes to try to sleep this morning Plan: Cont vent weaning Trach shield and speaking valve during day when awake. Would recommend ABG after 4 hours to r/o CO2 retention, however and still vent overnight Monitor fever curve, no obvious source of infection, possibly some aspiration events, atelectasis Vitals Vitals Vital Signs Date Time Temp Pulse Resp B/P (MAP) Pulse Ox O2 Delivery O2 Flow Rate FiO2 08/19/19 07:05 98 Tracheal Collar 10.0 08/19/19 06:00 98.3 130 40 154/79 (104) 98.3 Physical Exam Physical Exam GENERAL: Propped up in bed, sedated weak appearing HEENT: Pupils equal, + NGT, oral cavity dry NECK: Trach/vent LUNGS: rhonchi HEART: S1, S2, regular ABDOMEN: Distended, hypoactive BS, drain placement (08/14 ) : Lind (08/01) EXTREMITIES: Generalized edema, no cyanosis, SCDs bilaterally DERMATOLOGIC: Warm and dry. No generalized rash. CENTRAL NERVOUS SYSTEM: Extremely weak, nods to few simple questions PICC line in place August 18, 2019 clean HDC has been removed LIJ removed General: No acute distress Heart: Regular rate, Normal S1, Other (increased rate) Lungs: Crackles Abdomen: Soft, No tenderness Extremities: Other (ANASARCA) Skin: Other (mottling noted to extremities ) Labs LABS Laboratory Tests Test 08/18/19 12:10 08/18/19 17:26 08/19/19 00:59 08/19/19 06:27 Glucose (Fingerstick) 169 mg/dL (70-99) 152 mg/dL (70-99) 152 mg/dL (70-99) 139 mg/dL (70-99) Test 08/19/19 06:30 White Blood Count 14.7 x10^3/uL (4.0-11.0) Red Blood Count 2.78 x10^6/uL (3.50-5.40) Hemoglobin 8.1 g/dL (12.0-15.5) Hematocrit 25.3 % (36.0-47.0) Mean Corpuscular Volume 91 fL (79-100) Mean Corpuscular Hemoglobin 29 pg (25-35) Mean Corpuscular Hemoglobin Concent 32 g/dL (31-37) Red Cell Distribution Width 18.7 % (11.5-14.5) Platelet Count 442 x10^3/uL (140-400) Neutrophils (%) (Auto) 80 % (31-73) Lymphocytes (%) (Auto) 15 % (24-48) Monocytes (%) (Auto) 4 % (0-9) Eosinophils (%) (Auto) 1 % (0-3) Basophils (%) (Auto) 0 % (0-3) Neutrophils # (Auto) 11.7 x10^3/uL (1.8-7.7) Lymphocytes # (Auto) 2.2 x10^3/uL (1.0-4.8) Monocytes # (Auto) 0.5 x10^3/uL (0.0-1.1) Eosinophils # (Auto) 0.1 x10^3/uL (0.0-0.7) Basophils # (Auto) 0.0 x10^3/uL (0.0-0.2) Sodium Level 153 mmol/L (136-145) Potassium Level 3.3 mmol/L (3.5-5.1) Chloride Level 111 mmol/L (98-107) Carbon Dioxide Level 33 mmol/L (21-32) Anion Gap 9 (6-14) Blood Urea Nitrogen 47 mg/dL (7-20) Creatinine 0.9 mg/dL (0.6-1.0) Estimated GFR (Cockcroft-Gault) 66.5 Glucose Level 150 mg/dL (70-99) Calcium Level 8.7 mg/dL (8.5-10.1) Phosphorus Level 4.6 mg/dL (2.6-4.7) Magnesium Level 1.8 mg/dL (1.8-2.4) Assessment and Plan Assessmemt and Plan Problems Medical Problems: (1) Acute pancreatitis Status: Acute (2) Cholelithiasis Status: Acute Comment Review of Relevant I have reviewed the following items kolby (where applicable) has been applied. Labs Laboratory Tests Test 08/17/19 12:25 08/17/19 17:07 08/18/19 00:34 08/18/19 08:20 Glucose (Fingerstick) 125 mg/dL (70-99) 133 mg/dL (70-99) 112 mg/dL (70-99) White Blood Count 11.3 x10^3/uL (4.0-11.0) Red Blood Count 2.66 x10^6/uL (3.50-5.40) Hemoglobin 7.7 g/dL (12.0-15.5) Hematocrit 24.5 % (36.0-47.0) Mean Corpuscular Volume 92 fL (79-100) Mean Corpuscular Hemoglobin 29 pg (25-35) Mean Corpuscular Hemoglobin Concent 32 g/dL (31-37) Red Cell Distribution Width 18.6 % (11.5-14.5) Platelet Count 411 x10^3/uL (140-400) Sodium Level 152 mmol/L (136-145) Potassium Level 3.6 mmol/L (3.5-5.1) Chloride Level 113 mmol/L (98-107) Carbon Dioxide Level 33 mmol/L (21-32) Anion Gap 6 (6-14) Blood Urea Nitrogen 51 mg/dL (7-20) Creatinine 1.1 mg/dL (0.6-1.0) Estimated GFR (Cockcroft-Gault) 52.8 Glucose Level 119 mg/dL (70-99) Calcium Level 8.5 mg/dL (8.5-10.1) Magnesium Level 1.7 mg/dL (1.8-2.4) Test 08/18/19 12:10 08/18/19 17:26 08/19/19 00:59 08/19/19 06:27 Glucose (Fingerstick) 169 mg/dL (70-99) 152 mg/dL (70-99) 152 mg/dL (70-99) 139 mg/dL (70-99) Test 08/19/19 06:30 White Blood Count 14.7 x10^3/uL (4.0-11.0) Red Blood Count 2.78 x10^6/uL (3.50-5.40) Hemoglobin 8.1 g/dL (12.0-15.5) Hematocrit 25.3 % (36.0-47.0) Mean Corpuscular Volume 91 fL (79-100) Mean Corpuscular Hemoglobin 29 pg (25-35) Mean Corpuscular Hemoglobin Concent 32 g/dL (31-37) Red Cell Distribution Width 18.7 % (11.5-14.5) Platelet Count 442 x10^3/uL (140-400) Neutrophils (%) (Auto) 80 % (31-73) Lymphocytes (%) (Auto) 15 % (24-48) Monocytes (%) (Auto) 4 % (0-9) Eosinophils (%) (Auto) 1 % (0-3) Basophils (%) (Auto) 0 % (0-3) Neutrophils # (Auto) 11.7 x10^3/uL (1.8-7.7) Lymphocytes # (Auto) 2.2 x10^3/uL (1.0-4.8) Monocytes # (Auto) 0.5 x10^3/uL (0.0-1.1) Eosinophils # (Auto) 0.1 x10^3/uL (0.0-0.7) Basophils # (Auto) 0.0 x10^3/uL (0.0-0.2) Sodium Level 153 mmol/L (136-145) Potassium Level 3.3 mmol/L (3.5-5.1) Chloride Level 111 mmol/L (98-107) Carbon Dioxide Level 33 mmol/L (21-32) Anion Gap 9 (6-14) Blood Urea Nitrogen 47 mg/dL (7-20) Creatinine 0.9 mg/dL (0.6-1.0) Estimated GFR (Cockcroft-Gault) 66.5 Glucose Level 150 mg/dL (70-99) Calcium Level 8.7 mg/dL (8.5-10.1) Phosphorus Level 4.6 mg/dL (2.6-4.7) Magnesium Level 1.8 mg/dL (1.8-2.4) Laboratory Tests Test 08/18/19 12:10 08/18/19 17:26 08/19/19 00:59 08/19/19 06:27 Glucose (Fingerstick) 169 mg/dL (70-99) 152 mg/dL (70-99) 152 mg/dL (70-99) 139 mg/dL (70-99) Test 08/19/19 06:30 White Blood Count 14.7 x10^3/uL (4.0-11.0) Red Blood Count 2.78 x10^6/uL (3.50-5.40) Hemoglobin 8.1 g/dL (12.0-15.5) Hematocrit 25.3 % (36.0-47.0) Mean Corpuscular Volume 91 fL (79-100) Mean Corpuscular Hemoglobin 29 pg (25-35) Mean Corpuscular Hemoglobin Concent 32 g/dL (31-37) Red Cell Distribution Width 18.7 % (11.5-14.5) Platelet Count 442 x10^3/uL (140-400) Neutrophils (%) (Auto) 80 % (31-73) Lymphocytes (%) (Auto) 15 % (24-48) Monocytes (%) (Auto) 4 % (0-9) Eosinophils (%) (Auto) 1 % (0-3) Basophils (%) (Auto) 0 % (0-3) Neutrophils # (Auto) 11.7 x10^3/uL (1.8-7.7) Lymphocytes # (Auto) 2.2 x10^3/uL (1.0-4.8) Monocytes # (Auto) 0.5 x10^3/uL (0.0-1.1) Eosinophils # (Auto) 0.1 x10^3/uL (0.0-0.7) Basophils # (Auto) 0.0 x10^3/uL (0.0-0.2) Sodium Level 153 mmol/L (136-145) Potassium Level 3.3 mmol/L (3.5-5.1) Chloride Level 111 mmol/L (98-107) Carbon Dioxide Level 33 mmol/L (21-32) Anion Gap 9 (6-14) Blood Urea Nitrogen 47 mg/dL (7-20) Creatinine 0.9 mg/dL (0.6-1.0) Estimated GFR (Cockcroft-Gault) 66.5 Glucose Level 150 mg/dL (70-99) Calcium Level 8.7 mg/dL (8.5-10.1) Phosphorus Level 4.6 mg/dL (2.6-4.7) Magnesium Level 1.8 mg/dL (1.8-2.4) Microbiology 08/17/19 Blood Culture - Preliminary, Resulted NO GROWTH AFTER 1 DAY 08/15/19 Aerobic and Anaerobic Culture, Resulted Pending 08/15/19 Anaerobic Culture Result 1 (ALEXANDRA), Resulted Pending 08/15/19 Aerobic Culture, Resulted Pending 08/15/19 Aerobic Culture Result 1 (ALEXANDRA), Resulted Pending 08/15/19 Gram Stain - Final, Resulted 08/15/19 Gram Stain Result 1 (ALEXANDRA) - Final, Resulted 08/15/19 Gram Stain Result 2 (ALEXANDRA) - Final, Resulted 07/31/19 Urine Culture - Final, Complete 07/31/19 Urine Culture Result 1 (ALEXANDRA) - Final, Complete Medications Current Medications Sodium Chloride 1,000 ml @ 1,000 mls/hr Q1H IV Last administered on 07/04/19at 03:00; Start 07/04/19 at 03:00; Stop 07/04/19 at 03:59; Status DC Ondansetron HCl (Zofran) 4 mg 1X ONCE IVP Last administered on 07/04/19at 03:27; Start 07/04/19 at 03:00; Stop 07/04/19 at 03:01; Status DC Morphine Sulfate (Morphine Sulfate) 4 mg 1X ONCE IV ; Start 07/04/19 at 03:00; Stop 07/04/19 at 03:01; Status Cancel Ketorolac Tromethamine (Toradol 30mg Vial) 30 mg 1X ONCE IV Last administered on 07/04/19at 02:54; Start 07/04/19 at 03:00; Stop 07/04/19 at 03:01; Status DC Fentanyl Citrate (Fentanyl 2ml Vial) 25 mcg 1X ONCE IVP Last administered on 07/04/19at 03:23; Start 07/04/19 at 03:30; Stop 07/04/19 at 03:31; Status DC Fentanyl Citrate (Fentanyl 2ml Vial) 100 mcg STK-MED ONCE .ROUTE ; Start 07/04/19 at 03:18; Stop 07/04/19 at 03:18; Status DC Iohexol (Omnipaque 350 Mg/ml) 90 ml 1X ONCE IV Last administered on 07/04/19at 03:25; Start 07/04/19 at 03:30; Stop 07/04/19 at 03:31; Status DC Info (CONTRAST GIVEN -- Rx MONITORING) 1 each PRN DAILY PRN MC SEE COMMENTS; Start 07/04/19 at 03:30; Stop 07/06/19 at 03:29; Status DC Hydromorphone HCl (Dilaudid) 0.5 mg 1X ONCE IV Last administered on 07/04/19at 03:55; Start 07/04/19 at 04:30; Stop 07/04/19 at 04:32; Status DC Ondansetron HCl (Zofran) 4 mg PRN Q8HRS PRN IV NAUSEA/VOMITING 1ST CHOICE; Start 07/04/19 at 05:00; Stop 07/04/19 at 09:27; Status DC Morphine Sulfate (Morphine Sulfate) 2 mg PRN Q2HR PRN IV SEVERE PAIN 7-10 Last administered on 07/05/19at 12:26; Start 07/04/19 at 05:00; Stop 07/05/19 at 14:15; Status DC Sodium Chloride 1,000 ml @ 125 mls/hr Q8H IV Last administered on 07/04/19at 20:56; Start 07/04/19 at 05:00; Stop 07/05/19 at 04:59; Status DC Hydromorphone HCl (Dilaudid) 0.5 mg PRN Q3HRS PRN IV SEVERE PAIN 7-10 Last administered on 07/05/19at 10:06; Start 07/04/19 at 05:00; Stop 07/05/19 at 12:01; Status DC Piperacillin Sod/ Tazobactam Sod 4.5 gm/Sodium Chloride 100 ml @ 200 mls/hr 1X ONCE IV Last administered on 07/04/19at 05:44; Start 07/04/19 at 06:00; Stop 07/04/19 at 06:29; Status DC Ondansetron HCl (Zofran) 4 mg PRN Q4HRS PRN IV NAUSEA/VOMITING 1ST CHOICE Last administered on 08/12/19at 11:01; Start 07/04/19 at 09:30 Insulin Human Lispro (HumaLOG) 0-9 UNITS Q6HRS SQ Last administered on 08/18/19at 17:29; Start 07/04/19 at 09:30 Dextrose (Dextrose 50%-Water Syringe) 12.5 gm PRN Q15MIN PRN IV SEE COMMENTS; Start 07/04/19 at 09:30 Pantoprazole Sodium (PROTONIX VIAL for IV PUSH) 40 mg DAILYAC IVP Last administered on 08/18/19at 08:17; Start 07/04/19 at 11:30 Prochlorperazine Edisylate (Compazine) 10 mg PRN Q6HRS PRN IV NAUSEA/VOMITING, 2nd CHOICE Last administered on 08/17/19at 14:59; Start 07/04/19 at 17:45 Atenolol (Tenormin) 100 mg DAILY PO ; Start 07/05/19 at 09:00; Stop 07/04/19 at 20:08; Status DC Metoprolol Tartrate (Lopressor Vial) 2.5 mg Q6HRS IVP Last administered on 07/05/19at 05:51; Start 07/04/19 at 20:15; Stop 07/05/19 at 10:02; Status DC Metoprolol Tartrate (Lopressor Vial) 5 mg Q6HRS IVP Last administered on 07/14/19at 00:12; Start 07/05/19 at 10:15; Stop 07/16/19 at 08:48; Status DC Hydromorphone HCl (Dilaudid) 1 mg PRN Q3HRS PRN IV SEVERE PAIN 7-10 Last administered on 07/11/19at 05:13; Start 07/05/19 at 12:00; Stop 07/19/19 at 00:25; Status DC Lidocaine HCl (Buffered Lidocaine 1%) 3 ml STK-MED ONCE .ROUTE ; Start 07/05/19 at 12:55; Stop 07/05/19 at 12:56; Status DC Albumin Human 500 ml @ 125 mls/hr 1X ONCE IV Last administered on 07/05/19at 14:33; Start 07/05/19 at 14:30; Stop 07/05/19 at 18:32; Status DC Norepinephrine Bitartrate 8 mg/ Dextrose 258 ml @ 17.299 mls/ hr CONT PRN IV PER PROTOCOL Last administered on 08/02/19at 12:48; Start 07/05/19 at 15:30; Stop 08/05/19 at 09:19; Status DC Sodium Chloride 1,000 ml @ 125 mls/hr Q8H IV Last administered on 07/05/19at 21:04; Start 07/05/19 at 16:00; Stop 07/06/19 at 02:42; Status DC Albumin Human 500 ml @ 125 mls/hr PRN BID PRN IV After every 2L NSS & BP < 90mm Last administered on 07/20/19at 14:21; Start 07/05/19 at 16:00 Iohexol (Omnipaque 300 Mg/ml) 60 ml 1X ONCE IV Last administered on 07/05/19at 17:20; Start 07/05/19 at 17:00; Stop 07/05/19 at 17:01; Status DC Info (CONTRAST GIVEN -- Rx MONITORING) 1 each PRN DAILY PRN MC SEE COMMENTS; Start 07/05/19 at 17:00; Stop 07/07/19 at 16:59; Status DC Meropenem 1 gm/ Sodium Chloride 100 ml @ 200 mls/hr Q8HRS IV Last administered on 07/06/19at 05:45; Start 07/05/19 at 20:00; Stop 07/06/19 at 08:48; Status DC Furosemide (Lasix) 40 mg 1X ONCE IVP Last administered on 07/05/19at 22:12; Start 07/05/19 at 22:30; Stop 07/05/19 at 22:31; Status DC Calcium Chloride 1000 mg/Sodium Chloride 110 ml @ 220 mls/hr 1X ONCE IV Last administered on 07/05/19at 22:11; Start 07/05/19 at 22:30; Stop 07/05/19 at 22:59; Status DC Albuterol Sulfate (Ventolin Neb Soln) 2.5 mg 1X ONCE NEB Last administered on 07/06/19at 00:56; Start 07/05/19 at 22:30; Stop 07/05/19 at 22:31; Status DC Insulin Human Regular (HumuLIN R VIAL) 5 unit 1X ONCE IV Last administered on 07/05/19at 22:14; Start 07/05/19 at 22:30; Stop 07/05/19 at 22:31; Status DC Magnesium Sulfate 50 ml @ 25 mls/hr 1X ONCE IV Last administered on 07/06/19at 02:57; Start 07/06/19 at 03:00; Stop 07/06/19 at 04:59; Status DC Calcium Gluconate 1000 mg/Sodium Chloride 110 ml @ 220 mls/hr 1X ONCE IV Last administered on 07/06/19at 02:46; Start 07/06/19 at 03:00; Stop 07/06/19 at 03:2 9; Status DC Sodium Chloride 1,000 ml @ 200 mls/hr Q5H IV Last administered on 07/06/19at 02:46; Start 07/06/19 at 03:00; Stop 07/06/19 at 10:21; Status DC Calcium Gluconate 1000 mg/Sodium Chloride 110 ml @ 220 mls/hr 1X ONCE IV Last administered on 07/06/19at 03:21; Start 07/06/19 at 03:30; Stop 07/06/19 at 03:59; Status DC Sodium Bicarbonate 50 meq/Sodium Chloride 1,050 ml @ 75 mls/hr Q14H IV Last administered on 07/10/19at 21:10; Start 07/06/19 at 07:30; Stop 07/11/19 at 10:28; Status DC Calcium Gluconate 2000 mg/Sodium Chloride 120 ml @ 220 mls/hr 1X ONCE IV Last administered on 07/06/19at 09:05; Start 07/06/19 at 07:30; Stop 07/06/19 at 08:02; Status DC Lidocaine HCl (Xylocaine-Mpf 1% 2ml Vial) 2 ml STK-MED ONCE .ROUTE ; Start 07/06/19 at 08:47; Stop 07/06/19 at 08:47; Status DC Meropenem 500 mg/ Sodium Chloride 50 ml @ 100 mls/hr Q12HR IV Last administered on 07/11/19at 21:01; Start 07/06/19 at 18:00; Stop 07/12/19 at 07:58; Status DC Lidocaine HCl (Buffered Lidocaine 1%) 3 ml STK-MED ONCE .ROUTE ; Start 07/06/19 at 09:46; Stop 07/06/19 at 09:46; Status DC Lidocaine HCl (Buffered Lidocaine 1%) 6 ml 1X ONCE INJ Last administered on 07/06/19at 10:26; Start 07/06/19 at 10:15; Stop 07/06/19 at 10:16; Status DC Info (Tpn Per Pharmacy) 1 each PRN DAILY PRN MC SEE COMMENTS Last administered on 08/18/19at 10:51; Start 07/06/19 at 12:00 Sodium Chloride 1,000 ml @ 1,000 mls/hr Q1H PRN IV hypotension; Start 07/06/19 at 12:07; Stop 07/06/19 at 18:06; Status DC Diphenhydramine HCl (Benadryl) 25 mg 1X PRN PRN IV ITCHING; Start 07/06/19 at 12:15; Stop 07/07/19 at 12:14; Status DC Diphenhydramine HCl (Benadryl) 25 mg 1X PRN PRN IV ITCHING; Start 07/06/19 at 12:15; Stop 07/07/19 at 12:14; Status DC Sodium Chloride 1,000 ml @ 400 mls/hr Q2H30M PRN IV PATENCY; Start 07/06/19 at 12:07; Stop 07/07/19 at 00:06; Status DC Info (PHARMACY MONITORING -- do not chart) 1 each PRN DAILY PRN MC SEE COMMENTS; Start 07/06/19 at 12:15; Stop 07/08/19 at 08:13; Status DC Sodium Chloride 90 meq/Calcium Gluconate 10 meq/ Multivitamins 10 ml/Chromium/ Copper/Manganese/ Seleni/Zn 1 ml/ Total Parenteral Nutrition/Amino Acids/Dextrose/ Fat Emulsion Intravenous 55.005 ml @ 2.292 mls/hr TPN CONT IV ; Start 07/06/19 at 22:00; Stop 07/06/19 at 12:33; Status DC Info (Tpn Per Pharmacy) 1 each PRN DAILY PRN MC SEE COMMENTS; Start 07/06/19 at 12:30; Status UNV Sodium Chloride 90 meq/Calcium Gluconate 10 meq/ Multivitamins 10 ml/Chromium/ Copper/Manganese/ Seleni/Zn 0.5 ml/ Total Parenteral Nutrition/Amino Acids/Dextrose/ Fat Emulsion Intravenous 1,512 ml @ 63 mls/hr TPN CONT IV Last administered on 07/06/19at 22:06; Start 07/06/19 at 22:00; Stop 07/07/19 at 21:59; Status DC Calcium Carbonate/ Glycine (Tums) 500 mg PRN AFTMEALHC PRN PO INDIGESTION; Start 07/06/19 at 17:45 Calcium Gluconate (Calcium Gluconate) 2,000 mg 1X ONCE IVP Last administered on 07/07/19at 02:19; Start 07/07/19 at 02:15; Stop 07/07/19 at 02:16; Status DC Calcium Chloride 3000 mg/Sodium Chloride 1,030 ml @ 50 mls/hr [id number] IV Last administered on 07/09/19at 02:17; Start 07/07/19 at 08:00; Stop 07/09/19 at 15:23; Status DC Lorazepam (Ativan Inj) 1 mg PRN Q4HRS PRN IVP ANXIETY / AGITATION, 2nd choic Last administered on 08/05/19at 03:51; Start 07/07/19 at 09:00; Stop 08/05/19 at 09:19; Status DC Sodium Chloride 1,000 ml @ 1,000 mls/hr Q1H PRN IV hypotension; Start 07/07/19 at 08:56; Stop 07/07/19 at 14:55; Status DC Albumin Human 200 ml @ 200 mls/hr 1X PRN PRN IV Hypotension; Start 07/07/19 at 09:00; Stop 07/07/19 at 14:59; Status DC Diphenhydramine HCl (Benadryl) 25 mg 1X PRN PRN IV ITCHING; Start 07/07/19 at 09:00; Stop 07/08/19 at 08:59; Status DC Diphenhydramine HCl (Benadryl) 25 mg 1X PRN PRN IV ITCHING; Start 07/07/19 at 09:00; Stop 07/08/19 at 08:59; Status DC Sodium Chloride 1,000 ml @ 400 mls/hr Q2H30M PRN IV PATENCY; Start 07/07/19 at 08:56; Stop 07/07/19 at 20:55; Status DC Info (PHARMACY MONITORING -- do not chart) 1 each PRN DAILY PRN MC SEE COMMENTS; Start 07/07/19 at 09:00; Status UNV Info (PHARMACY MONITORING -- do not chart) 1 each PRN DAILY PRN MC SEE COMMENTS; Start 07/07/19 at 09:00; Stop 07/08/19 at 08:13; Status DC Digoxin (Lanoxin) 500 mcg 1X ONCE IV Last administered on 07/07/19at 10:04; Start 07/07/19 at 10:00; Stop 07/07/19 at 10:01; Status DC Digoxin (Lanoxin) 125 mcg 1X ONCE IV Last administered on 07/07/19at 17:10; Start 07/07/19 at 18:00; Stop 07/07/19 at 18:01; Status DC Magnesium Sulfate 100 ml @ 25 mls/hr 1X ONCE IV Last administered on 07/07/19at 12:48; Start 07/07/19 at 13:00; Stop 07/07/19 at 16:59; Status DC Sodium Chloride 90 meq/Magnesium Sulfate 10 meq/ Calcium Gluconate 20 meq/ Multivitamins 10 ml/Chromium/ Copper/Manganese/ Seleni/Zn 0.5 ml/ Total Parenteral Nutrition/Amino Acids/Dextrose/ Fat Emulsion Intravenous 1,512 ml @ 63 mls/hr TPN CONT IV Last administered on 07/07/19at 22:25; Start 07/07/19 at 22:00; Stop 07/08/19 at 21:59; Status DC Sodium Chloride 1,000 ml @ 1,000 mls/hr Q1H PRN IV hypotension; Start 07/08/19 at 08:05; Stop 07/08/19 at 14:04; Status DC Albumin Human 200 ml @ 200 mls/hr 1X ONCE IV Last administered on 07/08/19at 08:57; Start 07/08/19 at 08:15; Stop 07/08/19 at 09:14; Status DC Diphenhydramine HCl (Benadryl) 25 mg 1X PRN PRN IV ITCHING; Start 07/08/19 at 08:15; Stop 07/09/19 at 08:14; Status DC Diphenhydramine HCl (Benadryl) 25 mg 1X PRN PRN IV ITCHING; Start 07/08/19 at 08:15; Stop 07/09/19 at 08:14; Status DC Sodium Chloride 1,000 ml @ 400 mls/hr Q2H30M PRN IV PATENCY; Start 07/08/19 at 08:05; Stop 07/08/19 at 20:04; Status DC Info (PHARMACY MONITORING -- do not chart) 1 each PRN DAILY PRN MC SEE COMMENTS; Start 07/08/19 at 08:15; Stop 07/12/19 at 07:57; Status DC Sodium Chloride 90 meq/Potassium Chloride 15 meq/ Potassium Phosphate 10 mmol/ Magnesium Sulfate 10 meq/Calcium Gluconate 20 meq/ Multivitamins 10 ml/Chromium/ Copper/Manganese/ Seleni/Zn 0.5 ml/ Total Parenteral Nutrition/Amino Acids/Dextrose/ Fat Emulsion Intravenous 1,512 ml @ 63 mls/hr TPN CONT IV Last administered on 07/08/19at 21:01; Start 07/08/19 at 22:00; Stop 07/09/19 at 21:59; Status DC Potassium Chloride/Water 100 ml @ 100 mls/hr 1X ONCE IV Last administered on 07/08/19at 14:09; Start 07/08/19 at 14:00; Stop 07/08/19 at 14:59; Status DC Benzocaine (Hurricaine One) 1 spray 1X ONCE MM Last administered on 07/08/19at 16:38; Start 07/08/19 at 14:30; Stop 07/08/19 at 14:31; Status DC Lidocaine HCl (Glydo (Lidocaine) Jelly) 1 ramu 1X ONCE MM Last administered on 07/08/19at 16:38; Start 07/08/19 at 14:30; Stop 07/08/19 at 14:31; Status DC Linezolid/Dextrose 300 ml @ 300 mls/hr Q12HR IV Last administered on 07/14/19at 21:04; Start 07/08/19 at 20:00; Stop 07/15/19 at 07:50; Status DC Acetaminophen (Tylenol) 650 mg PRN Q6HRS PRN PO MILD PAIN / TEMP; Start 07/09/19 at 03:30; Stop 07/09/19 at 03:36; Status DC Acetaminophen (Tylenol) 650 mg PRN Q6HRS PRN PEG MILD PAIN / TEMP Last administered on 08/04/19at 19:56; Start 07/09/19 at 03:36 Sodium Chloride 1,000 ml @ 1,000 mls/hr Q1H PRN IV hypotension; Start 07/09/19 at 07:50; Stop 07/09/19 at 13:49; Status DC Albumin Human 200 ml @ 200 mls/hr 1X PRN PRN IV Hypotension; Start 07/09/19 at 08:00; Stop 07/09/19 at 13:59; Status DC Sodium Chloride (Normal Saline Flush) 10 ml 1X PRN PRN IV AP catheter pack; Start 07/09/19 at 08:00; Stop 07/10/19 at 07:59; Status DC Sodium Chloride (Normal Saline Flush) 10 ml 1X PRN PRN IV SPLICING TECHNICIAN catheter pack; Start 07/09/19 at 08:00; Stop 07/10/19 at 07:59; Status DC Sodium Chloride 1,000 ml @ 400 mls/hr Q2H30M PRN IV PATENCY; Start 07/09/19 at 07:50; Stop 07/09/19 at 19:49; Status DC Info (PHARMACY MONITORING -- do not chart) 1 each PRN DAILY PRN MC SEE COMMENTS; Start 07/09/19 at 08:00; Status UNV Info (PHARMACY MONITORING -- do not chart) 1 each PRN DAILY PRN MC SEE COMMENTS; Start 07/09/19 at 08:00; Stop 07/11/19 at 08:25; Status DC Sodium Chloride 90 meq/Potassium Chloride 15 meq/ Potassium Phosphate 10 mmol/ Magnesium Sulfate 10 meq/Calcium Gluconate 20 meq/ Multivitamins 10 ml/Chromium/ Copper/Manganese/ Seleni/Zn 0.5 ml/ Total Parenteral Nutrition/Amino Acids/Dextrose/ Fat Emulsion Intravenous 1,512 ml @ 63 mls/hr TPN CONT IV Last administered on 07/09/19at 20:57; Start 07/09/19 at 22:00; Stop 07/10/19 at 21:59; Status DC Sodium Chloride 90 meq/Potassium Chloride 15 meq/ Potassium Phosphate 15 mmol/ Magnesium Sulfate 10 meq/Calcium Gluconate 20 meq/ Multivitamins 10 ml/Chromium/ Copper/Manganese/ Seleni/Zn 0.5 ml/ Total Parenteral Nutrition/Amino Acids/Dextrose/ Fat Emulsion Intravenous 1,512 ml @ 63 mls/hr TPN CONT IV ; Start 07/10/19 at 22:00; Stop 07/10/19 at 14:16; Status DC Sodium Chloride 90 meq/Potassium Chloride 15 meq/ Potassium Phosphate 15 mmol/ Magnesium Sulfate 10 meq/Calcium Gluconate 20 meq/ Multivitamins 10 ml/Chromium/ Copper/Manganese/ Seleni/Zn 0.5 ml/ Total Parenteral Nutrition/Amino Acids/Dextrose/ Fat Emulsion Intravenous 1,200 ml @ 50 mls/hr TPN CONT IV ; Start 07/10/19 at 22:00; Stop 07/10/19 at 14:17; Status DC Sodium Chloride 90 meq/Potassium Chloride 15 meq/ Potassium Phosphate 10 mmol/ Magnesium Sulfate 10 meq/Calcium Gluconate 20 meq/ Multivitamins 10 ml/Chromium/ Copper/Manganese/ Seleni/Zn 0.5 ml/ Total Parenteral Nutrition/Amino Acids/Dextrose/ Fat Emulsion Intravenous 1,200 ml @ 50 mls/hr TPN CONT IV Last administered on 07/10/19at 23:29; Start 07/10/19 at 22:00; Stop 07/11/19 at 21:59; Status DC Sodium Chloride 1,000 ml @ 1,000 mls/hr Q1H PRN IV hypotension; Start 07/11/19 at 07:28; Stop 07/11/19 at 13:27; Status DC Albumin Human 200 ml @ 200 mls/hr 1X ONCE IV Last administered on 07/11/19at 08:51; Start 07/11/19 at 07:30; Stop 07/11/19 at 08:29; Status DC Diphenhydramine HCl (Benadryl) 25 mg 1X PRN PRN IV ITCHING; Start 07/11/19 at 07:30; Stop 07/12/19 at 07:29; Status DC Diphenhydramine HCl (Benadryl) 25 mg 1X PRN PRN IV ITCHING; Start 07/11/19 at 07:30; Stop 07/12/19 at 07:29; Status DC Sodium Chloride 1,000 ml @ 400 mls/hr Q2H30M PRN IV PATENCY; Start 07/11/19 at 07:28; Stop 07/11/19 at 19:27; Status DC Info (PHARMACY MONITORING -- do not chart) 1 each PRN DAILY PRN MC SEE COMMENTS; Start 07/11/19 at 07:30; Stop 07/22/19 at 13:01; Status DC Metronidazole 100 ml @ 100 mls/hr Q6HRS IV Last administered on 07/27/19at 06:26; Start 07/11/19 at 08:30; Stop 07/27/19 at 09:58; Status DC Micafungin Sodium 100 mg/Dextrose 100 ml @ 100 mls/hr Q24H IV Last administered on 08/18/19at 08:18; Start 07/11/19 at 09:00; Stop 08/18/19 at 20:58; Status DC Propofol 0 ml @ As Directed STK-MED ONCE IV ; Start 07/11/19 at 07:53; Stop 07/11/19 at 07:53; Status DC Etomidate (Amidate) 20 mg STK-MED ONCE IV ; Start 07/11/19 at 07:53; Stop 07/11/19 at 07:54; Status DC Midazolam HCl (Versed) 5 mg STK-MED ONCE .ROUTE ; Start 07/11/19 at 07:57; Stop 07/11/19 at 07:57; Status DC Fentanyl Citrate 30 ml @ 0 mls/hr CONT PRN IV SEE PROTOCOL Last administered on 08/05/19at 06:12; Start 07/11/19 at 08:15; Stop 08/05/19 at 09:19; Status DC Artificial Tears (Artificial Tears) 1 drop PRN Q1HR PRN OU DRY EYE, 1st choice; Start 07/11/19 at 08:15; Stop 08/17/19 at 05:31; Status DC Midazolam HCl 50 mg/Sodium Chloride 50 ml @ 0 mls/hr CONT PRN IV SEE PROTOCOL Last administered on 07/14/19at 22:39; Start 07/11/19 at 08:15; Stop 07/16/19 at 15:59; Status DC Etomidate (Amidate) 8 mg 1X ONCE IV Last administered on 07/11/19at 08:33; Start 07/11/19 at 08:30; Stop 07/11/19 at 08:31; Status DC Succinylcholine Chloride (Anectine) 120 mg 1X ONCE IV Last administered on 07/11/19at 08:34; Start 07/11/19 at 08:30; Stop 07/11/19 at 08:31; Status DC Midazolam HCl (Versed) 5 mg 1X ONCE IV ; Start 07/11/19 at 08:30; Stop 07/11/19 at 08:31; Status DC Potassium Chloride 15 meq/ Bicarbonate Dialysis Soln w/ out KCl 5,007.5 ml @ 1,000 mls/ hr Q5H1M IV Last administered on 07/12/19at 11:11; Start 07/11/19 at 12:00; Stop 07/12/19 at 11:15; Status DC Potassium Chloride 15 meq/ Bicarbonate Dialysis Soln w/ out KCl 5,007.5 ml @ 1,000 mls/ hr Q5H1M IV Last administered on 07/12/19at 11:12; Start 07/11/19 at 12:00; Stop 07/12/19 at 11:17; Status DC Potassium Chloride 15 meq/ Bicarbonate Dialysis Soln w/ out KCl 5,007.5 ml @ 1,000 mls/ hr Q5H1M IV Last administered on 07/12/19at 11:11; Start 07/11/19 at 12:00; Stop 07/12/19 at 11:19; Status DC Sodium Chloride 90 meq/Potassium Chloride 15 meq/ Potassium Phosphate 10 mmol/ Magnesium Sulfate 10 meq/Calcium Gluconate 20 meq/ Multivitamins 10 ml/Chromium/ Copper/Manganese/ Seleni/Zn 0.5 ml/ Total Parenteral Nutrition/Amino Acids/Dextrose/ Fat Emulsion Intravenous 1,400 ml @ 58.333 mls/ hr TPN CONT IV Last administered on 07/11/19at 21:42; Start 07/11/19 at 22:00; Stop 07/12/19 at 21:59; Status DC Heparin Sodium (Porcine) (Heparin Sodium) 5,000 unit Q8HRS SQ Last administered on 07/16/19at 05:55; Start 07/11/19 at 15:00; Stop 07/16/19 at 13:28; Status DC Meropenem 500 mg/ Sodium Chloride 50 ml @ 100 mls/hr Q6HRS IV Last administered on 07/13/19at 06:00; Start 07/12/19 at 09:00; Stop 07/13/19 at 07:29; Status DC Potassium Phosphate 20 mmol/ Sodium Chloride 106.6667 ml @ 51.667 m... 1X ONCE IV Last administered on 07/12/19at 11:22; Start 07/12/19 at 10:15; Stop 07/12/19 at 12:18; Status DC Acetaminophen (Tylenol Supp) 650 mg PRN Q6HRS PRN MI MILD PAIN / TEMP > 100.3'F Last administered on 08/15/19at 00:32; Start 07/12/19 at 10:30 Potassium Chloride/Water 100 ml @ 100 mls/hr Q1H IV Last administered on 07/12/19at 12:12; Start 07/12/19 at 11:00; Stop 07/12/19 at 12:59; Status DC Potassium Chloride 20 meq/ Bicarbonate Dialysis Soln w/ out KCl 5,010 ml @ 1,000 mls/hr Q5H1M IV Last administered on 07/13/19at 08:48; Start 07/12/19 at 12:00; Stop 07/13/19 at 13:03; Status DC Potassium Chloride 20 meq/ Bicarbonate Dialysis Soln w/ out KCl 5,010 ml @ 1,000 mls/hr Q5H1M IV Last administered on 07/17/19at 14:52; Start 07/12/19 at 11:30; Stop 07/17/19 at 19:59; Status DC Potassium Chloride 20 meq/ Bicarbonate Dialysis Soln w/ out KCl 5,010 ml @ 1,000 mls/hr Q5H1M IV Last administered on 07/17/19at 14:53; Start 07/12/19 at 11:30; Stop 07/17/19 at 19:59; Status DC Sodium Chloride 90 meq/Potassium Chloride 15 meq/ Potassium Phosphate 15 mmol/ Magnesium Sulfate 10 meq/Calcium Gluconate 15 meq/ Multivitamins 10 ml/Chromium/ Copper/Manganese/ Seleni/Zn 0.5 ml/ Total Parenteral Nutrition/Amino Acids/Dextrose/ Fat Emulsion Intravenous 1,400 ml @ 58.333 mls/ hr TPN CONT IV Last administered on 07/12/19at 22:17; Start 07/12/19 at 22:00; Stop 07/13/19 at 21:59; Status DC Cefepime HCl (Maxipime) 2 gm Q12HR IVP Last administered on 07/26/19at 20:56; Start 07/13/19 at 09:00; Stop 07/27/19 at 09:58; Status DC Daptomycin 500 mg/ Sodium Chloride 50 ml @ 100 mls/hr Q48H IV Last administered on 07/29/19at 09:57; Start 07/13/19 at 08:30; Stop 07/29/19 at 10:07; Status DC Lidocaine HCl (Buffered Lidocaine 1%) 3 ml 1X ONCE INJ Last administered on 07/13/19at 10:27; Start 07/13/19 at 10:30; Stop 07/13/19 at 10:31; Status DC Potassium Phosphate 20 mmol/ Sodium Chloride 106.6667 ml @ 51.667 m... 1X ONCE IV Last administered on 07/13/19at 12:51; Start 07/13/19 at 13:00; Stop 07/13/19 at 15:03; Status DC Sodium Chloride 90 meq/Potassium Chloride 15 meq/ Potassium Phosphate 18 mmol/ Magnesium Sulfate 8 meq/Calcium Gluconate 15 meq/ Multivitamins 10 ml/Chromium/ Copper/Manganese/ Seleni/Zn 0.5 ml/ Total Parenteral Nutrition/Amino Acids/Dextrose/ Fat Emulsion Intravenous 1,400 ml @ 58.333 mls/ hr TPN CONT IV Last administered on 07/13/19at 22:16; Start 07/13/19 at 22:00; Stop 07/14/19 at 21:59; Status DC Potassium Chloride 20 meq/ Bicarbonate Dialysis Soln w/ out KCl 5,010 ml @ 1,000 mls/hr Q5H1M IV Last administered on 07/17/19at 14:54; Start 07/13/19 at 16:00; Stop 07/17/19 at 19:59; Status DC Multi-Ingred Cream/Lotion/Oil/ Oint (Artificial Tears Eye Ointment) 1 ramu PRN Q1HR PRN OU DRY EYE, 2nd choice Last administered on 08/01/19at 08:19; Start 07/13/19 at 17:30 Sodium Chloride 90 meq/Potassium Chloride 15 meq/ Potassium Phosphate 18 mmol/ Magnesium Sulfate 8 meq/Calcium Gluconate 15 meq/ Multivitamins 10 ml/Chromium/ Copper/Manganese/ Seleni/Zn 0.5 ml/ Total Parenteral Nutrition/Amino Acids/Dextrose/ Fat Emulsion Intravenous 1,400 ml @ 58.333 mls/ hr TPN CONT IV Last administered on 07/14/19at 22:00; Start 07/14/19 at 22:00; Stop 07/15/19 at 21:59; Status DC Albumin Human 500 ml @ 125 mls/hr 1X ONCE IV ; Start 07/14/19 at 14:15; Stop 07/14/19 at 18:14; Status DC Sodium Chloride 90 meq/Potassium Chloride 15 meq/ Potassium Phosphate 18 mmol/ Magnesium Sulfate 8 meq/Calcium Gluconate 15 meq/ Multivitamins 10 ml/Chromium/ Copper/Manganese/ Seleni/Zn 0.5 ml/ Insulin Human Regular 10 unit/ Total Parenteral Nutrition/Amino Acids/Dextrose/ Fat Emulsion Intravenous 1,400 ml @ 58.333 mls/ hr TPN CONT IV Last administered on 07/15/19at 21:43; Start 07/15/19 at 22:00; Stop 07/16/19 at 21:59; Status DC Lidocaine HCl (Buffered Lidocaine 1%) 3 ml STK-MED ONCE .ROUTE ; Start 07/13/19 at 10:00; Stop 07/15/19 at 13:57; Status DC Midazolam HCl 100 mg/Sodium Chloride 100 ml @ 7 mls/hr CONT PRN IV SEE PROTOCOL Last administered on 07/27/19at 15:35; Start 07/16/19 at 16:00 Sodium Chloride 90 meq/Potassium Chloride 15 meq/ Potassium Phosphate 18 mmol/ Magnesium Sulfate 8 meq/Calcium Gluconate 15 meq/ Multivitamins 10 ml/Chromium/ Copper/Manganese/ Seleni/Zn 0.5 ml/ Insulin Human Regular 15 unit/ Total P arenteral Nutrition/Amino Acids/Dextrose/ Fat Emulsion Intravenous 1,400 ml @ 58.333 mls/ hr TPN CONT IV Last administered on 07/16/19at 20:34; Start 07/16/19 at 22:00; Stop 07/17/19 at 21:59; Status DC Info (Icu Electrolyte Protocol) 1 ea CONT PRN PRN MC PER PROTOCOL; Start 07/17/19 at 13:15 Sodium Chloride 90 meq/Potassium Chloride 15 meq/ Potassium Phosphate 18 mmol/ Magnesium Sulfate 8 meq/Calcium Gluconate 15 meq/ Multivitamins 10 ml/Chromium/ Copper/Manganese/ Seleni/Zn 0.5 ml/ Insulin Human Regular 15 unit/ Total Parenteral Nutrition/Amino Acids/Dextrose/ Fat Emulsion Intravenous 1,400 ml @ 58.333 mls/ hr TPN CONT IV Last administered on 07/17/19at 22:05; Start 07/17/19 at 22:00; Stop 07/18/19 at 21:59; Status DC Potassium Chloride 15 meq/ Bicarbonate Dialysis Soln w/ out KCl 5,007.5 ml @ 1,000 mls/ hr Q5H1M IV Last administered on 07/20/19at 18:14; Start 07/17/19 at 20:00; Stop 07/21/19 at 13:08; Status DC Potassium Chloride 15 meq/ Bicarbonate Dialysis Soln w/ out KCl 5,007.5 ml @ 1,000 mls/ hr Q5H1M IV Last administered on 07/20/19at 18:14; Start 07/17/19 at 20:00; Stop 07/21/19 at 13:08; Status DC Potassium Chloride 15 meq/ Bicarbonate Dialysis Soln w/ out KCl 5,007.5 ml @ 1,000 mls/ hr Q5H1M IV Last administered on 07/20/19at 18:14; Start 07/17/19 at 20:00; Stop 07/21/19 at 13:08; Status DC Iohexol (Omnipaque 240 Mg/ml) 30 ml 1X ONCE PO Last administered on 07/18/19at 11:30; Start 07/18/19 at 11:30; Stop 07/18/19 at 11:33; Status DC Info (CONTRAST GIVEN -- Rx MONITORING) 1 each PRN DAILY PRN MC SEE COMMENTS; Start 07/18/19 at 11:45; Stop 07/20/19 at 11:44; Status DC Sodium Chloride 90 meq/Potassium Chloride 15 meq/ Potassium Phosphate 18 mmol/ Magnesium Sulfate 8 meq/Calcium Gluconate 15 meq/ Multivitamins 10 ml/Chromium/ Copper/Manganese/ Seleni/Zn 0.5 ml/ Insulin Human Regular 15 unit/ Total Parenteral Nutrition/Amino Acids/Dextrose/ Fat Emulsion Intravenous 1,400 ml @ 58.333 mls/ hr TPN CONT IV Last administered on 07/18/19at 21:47; Start 07/18/19 at 22:00; Stop 07/19/19 at 21:59; Status DC Sodium Chloride 90 meq/Potassium Chloride 15 meq/ Potassium Phosphate 18 mmol/ Magnesium Sulfate 8 meq/Calcium Gluconate 15 meq/ Multivitamins 10 ml/Chromium/ Copper/Manganese/ Seleni/Zn 0.5 ml/ Insulin Human Regular 20 unit/ Total Parenteral Nutrition/Amino Acids/Dextrose/ Fat Emulsion Intravenous 1,400 ml @ 58.333 mls/ hr TPN CONT IV Last administered on 07/19/19at 21:36; Start 07/19/19 at 22:00; Stop 07/20/19 at 21:59; Status DC Alteplase, Recombinant (Cathflo For Central Catheter Clearance) 1 mg 1X ONCE INT CAT Last administered on 07/19/19at 20:03; Start 07/19/19 at 19:30; Stop 07/19/19 at 19:46; Status DC Alteplase, Recombinant (Cathflo For Central Catheter Clearance) 1 mg 1X ONCE INT CAT Last administered on 07/19/19at 22:05; Start 07/19/19 at 22:00; Stop 07/19/19 at 22:01; Status DC Sodium Chloride 90 meq/Potassium Chloride 15 meq/ Potassium Phosphate 18 mmol/ Magnesium Sulfate 8 meq/Calcium Gluconate 15 meq/ Multivitamins 10 ml/Chromium/ Copper/Manganese/ Seleni/Zn 0.5 ml/ Insulin Human Regular 20 unit/ Total Parenteral Nutrition/Amino Acids/Dextrose/ Fat Emulsion Intravenous 1,400 ml @ 58.333 mls/ hr TPN CONT IV Last administered on 07/20/19at 21:30; Start 07/20/19 at 22:00; Stop 07/21/19 at 21:59; Status DC Dexmedetomidine HCl 400 mcg/ Sodium Chloride 100 ml @ 0 mls/hr CONT PRN IV ANXIETY / AGITATION Last administered on 08/19/19at 05:10; Start 07/21/19 at 08:15 Sodium Chloride 500 ml @ 500 mls/hr 1X PRN PRN IV ELEVATED BP, SEE COMMENTS; Start 07/21/19 at 08:15 Atropine Sulfate (ATROPINE 0.5mg SYRINGE) 0.5 mg PRN Q5MIN PRN IV SEE COMMENTS; Start 07/21/19 at 08:15 Furosemide (Lasix) 20 mg 1X ONCE IVP Last administered on 07/21/19at 08:19; Start 07/21/19 at 08:15; Stop 07/21/19 at 08:16; Status DC Lidocaine HCl (Buffered Lidocaine 1%) 3 ml STK-MED ONCE .ROUTE ; Start 07/21/19 at 08:39; Stop 07/21/19 at 08:39; Status DC Lidocaine HCl (Buffered Lidocaine 1%) 6 ml 1X ONCE INJ Last administered on 07/21/19at 09:05; Start 07/21/19 at 09:00; Stop 07/21/19 at 09:06; Status DC Sodium Chloride 90 meq/Potassium Chloride 15 meq/ Potassium Phosphate 18 mmol/ Magnesium Sulfate 8 meq/Calcium Gluconate 15 meq/ Multivitamins 10 ml/Chromium/ Copper/Manganese/ Seleni/Zn 0.5 ml/ Insulin Human Regular 20 unit/ Total Parenteral Nutrition/Amino Acids/Dextrose/ Fat Emulsion Intravenous 1,400 ml @ 58.333 mls/ hr TPN CONT IV Last administered on 07/21/19at 22:45; Start 07/21/19 at 22:00; Stop 07/22/19 at 21:59; Status DC Sodium Chloride 1,000 ml @ 1,000 mls/hr Q1H PRN IV hypotension; Start 07/22/19 at 07:30; Stop 07/22/19 at 13:29; Status DC Albumin Human 200 ml @ 200 mls/hr 1X PRN PRN IV Hypotension Last administered on 07/22/19at 09:36; Start 07/22/19 at 07:30; Stop 07/22/19 at 13:29; Status DC Sodium Chloride (Normal Saline Flush) 10 ml 1X PRN PRN IV AP catheter pack; S tart 07/22/19 at 07:30; Stop 07/22/19 at 21:29; Status DC Sodium Chloride (Normal Saline Flush) 10 ml 1X PRN PRN IV SPLICING TECHNICIAN catheter pack; Start 07/22/19 at 07:30; Stop 07/23/19 at 07:29; Status DC Sodium Chloride 1,000 ml @ 400 mls/hr Q2H30M PRN IV PATENCY; Start 07/22/19 at 07:30; Stop 07/22/19 at 19:29; Status DC Info (PHARMACY MONITORING -- do not chart) 1 each PRN DAILY PRN MC SEE C OMMENTS; Start 07/22/19 at 07:30; Stop 07/22/19 at 13:02; Status DC Info (PHARMACY MONITORING -- do not chart) 1 each PRN DAILY PRN MC SEE COMMENTS; Start 07/22/19 at 07:30; Stop 07/24/19 at 12:45; Status DC Sodium Chloride 90 meq/Potassium Chloride 15 meq/ Potassium Phosphate 10 mmol/ Magnesium Sulfate 8 meq/Calcium Gluconate 15 meq/ Multivitamins 10 ml/Chromium/ Copper/Manganese/ Seleni/Zn 0.5 ml/ Insulin Human Regular 25 unit/ Total Parenteral Nutrition/Amino Acids/Dextrose/ Fat Emulsion Intravenous 1,400 ml @ 58.333 mls/ hr TPN CONT IV Last administered on 07/22/19at 22:19; Start 07/22/19 at 22:00; Stop 07/23/19 at 21:59; Status DC Heparin Sodium (Porcine) (Heparin Sodium) 5,000 unit Q12HR SQ Last administered on 08/14/19at 08:59; Start 07/22/19 at 21:00; Stop 08/14/19 at 10:05; Status DC Ondansetron HCl (Zofran) 4 mg PRN Q6HRS PRN IV NAUSEA/VOMITING; Start 07/25/19 at 07:00; Stop 07/26/19 at 06:59; Status DC Fentanyl Citrate (Fentanyl 2ml Vial) 25 mcg PRN Q5MIN PRN IV MILD PAIN 1-3; Start 07/25/19 at 07:00; Stop 07/26/19 at 06:59; Status DC Fentanyl Citrate (Fentanyl 2ml Vial) 50 mcg PRN Q5MIN PRN IV MODERATE TO SEVERE PAIN; Start 07/25/19 at 07:00; Stop 07/26/19 at 06:59; Status DC Ringer's Solution 1,000 ml @ 30 mls/hr Q24H IV ; Start 07/25/19 at 07:00; Stop 07/25/19 at 18:59; Status DC Lidocaine HCl (Xylocaine-Mpf 1% 2ml Vial) 2 ml PRN 1X PRN ID PRIOR TO IV START; Start 07/25/19 at 07:00; Stop 07/26/19 at 06:59; Status DC Prochlorperazine Edisylate (Compazine) 5 mg PACU PRN PRN IV NAUSEA, MRX1; Start 07/25/19 at 07:00; Stop 07/26/19 at 06:59; Status DC Sodium Chloride 1,000 ml @ 1,000 mls/hr Q1H PRN IV hypotension; Start 07/23/19 at 09:10; Stop 07/23/19 at 15:09; Status DC Albumin Human 200 ml @ 200 mls/hr 1X PRN PRN IV Hypotension Last administered on 07/23/19at 10:10; Start 07/23/19 at 09:15; Stop 07/23/19 at 15:14; Status DC Sodium Chloride 1,000 ml @ 400 mls/hr Q2H30M PRN IV PATENCY; Start 07/23/19 at 09:10; Stop 07/23/19 at 21:09; Status DC Info (PHARMACY MONITORING -- do not chart) 1 each PRN DAILY PRN MC SEE COMMENTS; Start 07/23/19 at 09:15; Stop 07/24/19 at 12:45; Status DC Info (PHARMACY MONITORING -- do not chart) 1 each PRN DAILY PRN MC SEE COMMENTS; Start 07/23/19 at 09:15; Stop 07/24/19 at 12:45; Status DC Sodium Chloride 90 meq/Potassium Chloride 15 meq/ Potassium Phosphate 10 mmol/ Magnesium Sulfate 8 meq/Calcium Gluconate 15 meq/ Multivitamins 10 ml/Chromium/ Copper/Manganese/ Seleni/Zn 0.5 ml/ Insulin Human Regular 25 unit/ Total Parenteral Nutrition/Amino Acids/Dextrose/ Fat Emulsion Intravenous 1,400 ml @ 58.333 mls/ hr TPN CONT IV Last administered on 07/23/19at 22:10; Start 07/23/19 at 22:00; Stop 07/24/19 at 21:59; Status DC Magnesium Sulfate 50 ml @ 25 mls/hr PRN DAILY PRN IV for Mag < 1.7 on am labs Last administered on 08/08/19at 17:27; Start 07/24/19 at 09:15 Sodium Chloride 90 meq/Potassium Chloride 15 meq/ Potassium Phosphate 10 mmol/ Magnesium Sulfate 8 meq/Calcium Gluconate 15 meq/ Multivitamins 10 ml/Chromium/ Copper/Manganese/ Seleni/Zn 0.5 ml/ Insulin Human Regular 25 unit/ Total Parenteral Nutrition/Amino Acids/Dextrose/ Fat Emulsion Intravenous 1,400 ml @ 58.333 mls/ hr TPN CONT IV Last administered on 07/24/19at 21:20; Start 07/24/19 at 22:00; Stop 07/25/19 at 21:59; Status DC Sodium Chloride 1,000 ml @ 1,000 mls/hr Q1H PRN IV hypotension; Start 07/24/19 at 12:23; Stop 07/24/19 at 18:22; Status DC Albumin Human 200 ml @ 200 mls/hr 1X ONCE IV Last administered on 07/24/19at 13:34; Start 07/24/19 at 12:30; Stop 07/24/19 at 13:29; Status DC Diphenhydramine HCl (Benadryl) 25 mg 1X PRN PRN IV ITCHING; Start 07/24/19 at 12:30; Stop 07/25/19 at 12:29; Status DC Diphenhydramine HCl (Benadryl) 25 mg 1X PRN PRN IV ITCHING; Start 07/24/19 at 12:30; Stop 07/25/19 at 12:29; Status DC Info (PHARMACY MONITORING -- do not chart) 1 each PRN DAILY PRN MC SEE COMMENTS; Start 07/24/19 at 12:30; Status Cancel Bupivacaine HCl/ Epinephrine Bitart (Sensorcain-Epi 0.5%-1:[id number] Mpf) 30 ml STK-MED ONCE .ROUTE Last administered on 07/25/19at 11:44; Start 07/25/19 at 11:00; Stop 07/25/19 at 11:01; Status DC Cellulose (Surgicel Fibrillar 1x2) 1 each STK-MED ONCE .ROUTE ; Start 07/25/19 at 11:00; Stop 07/25/19 at 11:01; Status DC Sodium Chloride 90 meq/Potassium Chloride 15 meq/ Potassium Phosphate 10 mmol/ Magnesium Sulfate 12 meq/Calcium Gluconate 15 meq/ Multivitamins 10 ml/Chromium/ Copper/Manganese/ Seleni/Zn 0.5 ml/ Insulin Human Regular 25 unit/ Total Parenteral Nutrition/Amino Acids/Dextrose/ Fat Emulsion Intravenous 1,400 ml @ 58.333 mls/ hr TPN CONT IV Last administered on 07/25/19at 22:24; Start 07/25/19 at 22:00; Stop 07/26/19 at 21:59; Status DC Propofol 20 ml @ As Directed STK-MED ONCE IV ; Start 07/25/19 at 11:07; Stop 07/25/19 at 11:07; Status DC Cellulose (Surgicel Hemostat 4x8) 1 each STK-MED ONCE .ROUTE Last administered on 07/25/19at 11:44; Start 07/25/19 at 11:55; Stop 07/25/19 at 11:56; Status DC Sevoflurane (Ultane) 60 ml STK-MED ONCE IH ; Start 07/25/19 at 12:46; Stop 07/25/19 at 12:46; Status DC Sodium Chloride 1,000 ml @ 1,000 mls/hr Q1H PRN IV hypotension; Start 07/25/19 at 13:51; Stop 07/25/19 at 19:50; Status DC Albumin Human 200 ml @ 200 mls/hr 1X PRN PRN IV Hypotension Last administered on 07/25/19at 14:51; Start 07/25/19 at 14:00; Stop 07/25/19 at 19:59; Status DC Diphenhydramine HCl (Benadryl) 25 mg 1X PRN PRN IV ITCHING; Start 07/25/19 at 14:00; Stop 07/26/19 at 13:59; Status DC Diphenhydramine HCl (Benadryl) 25 mg 1X PRN PRN IV ITCHING; Start 07/25/19 at 14:00; Stop 07/26/19 at 13:59; Status DC Sodium Chloride 1,000 ml @ 400 mls/hr Q2H30M PRN IV PATENCY; Start 07/25/19 at 13:51; Stop 07/26/19 at 01:50; Status DC Info (PHARMACY MONITORING -- do not chart) 1 each PRN DAILY PRN MC SEE COMMENTS; Start 07/25/19 at 14:00; Stop 07/28/19 at 08:16; Status DC Heparin Sodium (Porcine) (Hep Lock Adult) 500 unit STK-MED ONCE IVP ; Start 07/26/19 at 09:29; Stop 07/26/19 at 09:30; Status DC Sodium Chloride 1,000 ml @ 1,000 mls/hr Q1H PRN IV hypotension; Start 07/26/19 at 10:43; Stop 07/26/19 at 16:42; Status DC Sodium Chloride 1,000 ml @ 400 mls/hr Q2H30M PRN IV PATENCY; Start 07/26/19 at 10:43; Stop 07/26/19 at 22:42; Status DC Info (PHARMACY MONITORING -- do not chart) 1 each PRN DAILY PRN MC SEE COMMENTS; Start 07/26/19 at 10:45; Status UNV Info (PHARMACY MONITORING -- do not chart) 1 each PRN DAILY PRN MC SEE COMMENTS; Start 07/26/19 at 10:45; Status UNV Sodium Chloride 90 meq/Potassium Chloride 15 meq/ Magnesium Sulfate 12 meq/Calcium Gluconate 15 meq/ Multivitamins 10 ml/Chromium/ Copper/Manganese/ Seleni/Zn 0.5 ml/ Insulin Human Regular 25 unit/ Total Parenteral Nutrition/Amino Acids/Dextrose/ Fat Emulsion Intravenous 1,400 ml @ 58.333 mls/ hr TPN CONT IV Last administered on 07/26/19at 22:13; Start 07/26/19 at 22:00; Stop 07/27/19 at 21:59; Status DC Sodium Chloride 1,000 ml @ 1,000 mls/hr Q1H PRN IV hypotension; Start 07/27/19 at 07:50; Stop 07/27/19 at 13:49; Status DC Albumin Human 200 ml @ 200 mls/hr 1X ONCE IV ; Start 07/27/19 at 08:00; Stop 07/27/19 at 08:53; Status DC Diphenhydramine HCl (Benadryl) 25 mg 1X PRN PRN IV ITCHING; Start 07/27/19 at 08:00; Stop 07/28/19 at 07:59; Status DC Diphenhydramine HCl (Benadryl) 25 mg 1X PRN PRN IV ITCHING; Start 07/27/19 at 08:00; Stop 07/28/19 at 07:59; Status DC Info (PHARMACY MONITORING -- do not chart) 1 each PRN DAILY PRN MC SEE COMMENTS; Start 07/27/19 at 08:00; Stop 07/28/19 at 08:16; Status DC Albumin Human 50 ml @ 50 mls/hr 1X ONCE IV ; Start 07/27/19 at 08:53; Stop 07/27/19 at 08:56; Status DC Albumin Human 200 ml @ 50 mls/hr PRN 1X PRN IV HYPOTENSION Last administered on 08/02/19at 11:54; Start 07/27/19 at 09:00 Meropenem 500 mg/ Sodium Chloride 50 ml @ 100 mls/hr Q12H IV Last administered on 08/16/19at 10:45; Start 07/27/19 at 10:00; Stop 08/16/19 at 12:37; Status DC Sodium Chloride 90 meq/Magnesium Sulfate 12 meq/ Calcium Gluconate 15 meq/ Multivitamins 10 ml/Chromium/ Copper/Manganese/ Seleni/Zn 0.5 ml/ Insulin Human Regular 25 unit/ Total Parenteral Nutrition/Amino Acids/Dextrose/ Fat Emulsion Intravenous 1,400 ml @ 58.333 mls/ hr TPN CONT IV Last administered on 07/27/19at 21:41; Start 07/27/19 at 22:00; Stop 07/28/19 at 21:59; Status DC Sodium Chloride 1,000 ml @ 1,000 mls/hr Q1H PRN IV hypotension; Start 07/28/19 at 07:58; Stop 07/28/19 at 13:57; Status DC Albumin Human 200 ml @ 200 mls/hr 1X PRN PRN IV Hypotension Last administered on 07/28/19at 09:30; Start 07/28/19 at 08:00; Stop 07/28/19 at 13:59; Status DC Sodium Chloride 1,000 ml @ 400 mls/hr Q2H30M PRN IV PATENCY; Start 07/28/19 at 07:58; Stop 07/28/19 at 19:57; Status DC Info (PHARMACY MONITORING -- do not chart) 1 each PRN DAILY PRN MC SEE COMMENTS; Start 07/28/19 at 08:00; Status Cancel Info (PHARMACY MONITORING -- do not chart) 1 each PRN DAILY PRN MC SEE COMMENTS; Start 07/28/19 at 08:15; Status UNV Sodium Chloride 90 meq/Potassium Phosphate 5 mmol/ Magnesium Sulfate 12 meq/Calcium Gluconate 15 meq/ Multivitamins 10 ml/Chromium/ Copper/Manganese/ Seleni/Zn 0.5 ml/ Insulin Human Regular 30 unit/ Total Parenteral Nutrition/Amino Acids/Dextrose/ Fat Emulsion Intravenous 1,400 ml @ 58.333 mls/ hr TPN CONT IV Last administered on 07/28/19at 22:08; Start 07/28/19 at 22:00; Stop 07/29/19 at 21:59; Status DC Linezolid/Dextrose 300 ml @ 300 mls/hr Q12HR IV Last administered on 08/08/19at 20:40; Start 07/29/19 at 11:00; Stop 08/09/19 at 08:10; Status DC Sodium Chloride 90 meq/Potassium Phosphate 15 mmol/ Magnesium Sulfate 12 meq/Calcium Gluconate 15 meq/ Multivitamins 10 ml/Chromium/ Copper/Manganese/ Seleni/Zn 0.5 ml/ Insulin Human Regular 30 unit/ Total Parenteral Nutrition/Amino Acids/Dextrose/ Fat Emulsion Intravenous 1,400 ml @ 58.333 mls/ hr TPN CONT IV Last administered on 07/29/19at 21:49; Start 07/29/19 at 22:00; Stop 07/30/19 at 21:59; Status DC Sodium Chloride 90 meq/Potassium Phosphate 15 mmol/ Magnesium Sulfate 12 meq/Calcium Gluconate 15 meq/ Multivitamins 10 ml/Chromium/ Copper/Manganese/ Seleni/Zn 0.5 ml/ Insulin Human Regular 40 unit/ Total Parenteral Nutrition/Amino Acids/Dextrose/ Fat Emulsion Intravenous 1,400 ml @ 58.333 mls/ hr TPN CONT IV Last administered on 07/30/19at 21:21; Start 07/30/19 at 22:00; Stop 07/31/19 at 21:59; Status DC Sodium Chloride 1,000 ml @ 1,000 mls/hr Q1H PRN IV hypotension; Start 07/30/19 at 13:26; Stop 07/30/19 at 19:25; Status DC Albumin Human 200 ml @ 200 mls/hr 1X PRN PRN IV Hypotension Last administered on 07/30/19at 15:00; Start 07/30/19 at 13:30; Stop 07/30/19 at 19:29; Status DC Sodium Chloride (Normal Saline Flush) 10 ml 1X PRN PRN IV AP catheter pack; Start 07/30/19 at 13:30; Stop 07/31/19 at 13:29; Status DC Sodium Chloride (Normal Saline Flush) 10 ml 1X PRN PRN IV SPLICING TECHNICIAN catheter pack; Start 07/30/19 at 13:30; Stop 07/31/19 at 13:29; Status DC Sodium Chloride 1,000 ml @ 400 mls/hr Q2H30M PRN IV PATENCY; Start 07/30/19 at 13:26; Stop 07/31/19 at 01:25; Status DC Info (PHARMACY MONITORING -- do not chart) 1 each PRN DAILY PRN MC SEE COMMENTS; Start 07/30/19 at 13:30; Stop 07/30/19 at 13:33; Status DC Info (PHARMACY MONITORING -- do not chart) 1 each PRN DAILY PRN MC SEE COMMENTS; Start 07/30/19 at 13:30; Stop 07/30/19 at 13:34; Status DC Sodium Chloride 90 meq/Potassium Phosphate 19 mmol/ Magnesium Sulfate 12 meq/Calcium Gluconate 15 meq/ Multivitamins 10 ml/Chromium/ Copper/Manganese/ Seleni/Zn 0.5 ml/ Insulin Human Regular 40 unit/ Total Parenteral Nutrition/Amino Acids/Dextrose/ Fat Emulsion Intravenous 1,400 ml @ 58.333 mls/ hr TPN CONT IV Last administered on 07/31/19at 21:54; Start 07/31/19 at 22:00; Stop 08/01/19 at 21:59; Status DC Sodium Chloride 1,000 ml @ 1,000 mls/hr Q1H PRN IV hypotension; Start 08/01/19 at 09:35; Stop 08/01/19 at 15:34; Status DC Albumin Human 200 ml @ 200 mls/hr 1X PRN PRN IV Hypotension; Start 08/01/19 at 09:45; Stop 08/01/19 at 15:44; Status DC Diphenhydramine HCl (Benadryl) 25 mg 1X PRN PRN IV ITCHING; Start 08/01/19 at 09:45; Stop 08/02/19 at 09:44; Status DC Diphenhydramine HCl (Benadryl) 25 mg 1X PRN PRN IV ITCHING; Start 08/01/19 at 09:45; Stop 08/02/19 at 09:44; Status DC Sodium Chloride 1,000 ml @ 400 mls/hr Q2H30M PRN IV PATENCY; Start 08/01/19 at 09:35; Stop 08/01/19 at 21:34; Status DC Info (PHARMACY MONITORING -- do not chart) 1 each PRN DAILY PRN MC SEE COMMENTS; Start 08/01/19 at 09:45; Status Cancel Sodium Chloride 100 meq/Potassium Phosphate 19 mmol/ Magnesium Sulfate 12 meq/Calcium Gluconate 15 meq/ Multivitamins 10 ml/Chromium/ Copper/Manganese/ Seleni/Zn 0.5 ml/ Insulin Human Regular 40 unit/ Potassium Chloride 20 meq/ Total Parenteral Nutrition/Amino Acids/Dextrose/ Fat Emulsion Intravenous 1,400 ml @ 58.333 mls/ hr TPN CONT IV Last administered on 08/01/19at 22:02; Start 08/01/19 at 22:00; Stop 08/02/19 at 21:59; Status DC Furosemide (Lasix) 40 mg 1X ONCE IVP Last administered on 08/01/19at 14:39; Start 08/01/19 at 14:30; Stop 08/01/19 at 14:31; Status DC Metronidazole 100 ml @ 100 mls/hr Q8HRS IV Last administered on 08/09/19at 06:04; Start 08/02/19 at 10:00; Stop 08/09/19 at 08:10; Status DC Sodium Chloride 1,000 ml @ 1,000 mls/hr Q1H PRN IV hypotension; Start 08/02/19 at 08:00; Stop 08/02/19 at 13:59; Status DC Albumin Human 200 ml @ 200 mls/hr 1X PRN PRN IV Hypotension; Start 08/02/19 at 08:00; Stop 08/02/19 at 13:59; Status DC Sodium Chloride 1,000 ml @ 400 mls/hr Q2H30M PRN IV PATENCY; Start 08/02/19 at 08:00; Stop 08/02/19 at 19:59; Status DC Info (PHARMACY MONITORING -- do not chart) 1 each PRN DAILY PRN MC SEE COMMENTS; Start 08/02/19 at 11:30; Status UNV Info (PHARMACY MONITORING -- do not chart) 1 each PRN DAILY PRN MC SEE COMMENTS; Start 08/02/19 at 11:30; Stop 08/04/19 at 12:13; Status DC Sodium Chloride 100 meq/Potassium Phosphate 19 mmol/ Magnesium Sulfate 12 meq/Calcium Gluconate 15 meq/ Multivitamins 10 ml/Chromium/ Copper/Manganese/ Seleni/Zn 0.5 ml/ Insulin Human Regular 40 unit/ Potassium Chloride 20 meq/ Total Parenteral Nutrition/Amino Acids/Dextrose/ Fat Emulsion Intravenous 1,400 ml @ 58.333 mls/ hr TPN CONT IV Last administered on 08/02/19at 21:52; Start 08/02/19 at 22:00; Stop 08/03/19 at 21:59; Status DC Sodium Chloride (Normal Saline Flush) 10 ml QSHIFT PRN IV AFTER MEDS AND BLOOD DRAWS; Start 08/02/19 at 15:00 Sodium Chloride (Normal Saline Flush) 10 ml PRN Q5MIN PRN IV AFTER MEDS AND BLOOD DRAWS; Start 08/02/19 at 15:00 Sodium Chloride (Normal Saline Flush) 20 ml PRN Q5MIN PRN IV AFTER MEDS AND BLOOD DRAWS; Start 08/02/19 at 15:00 Sodium Chloride 100 meq/Potassium Phosphate 19 mmol/ Magnesium Sulfate 12 meq/Calcium Gluconate 15 meq/ Multivitamins 10 ml/Chromium/ Copper/Manganese/ Seleni/Zn 0.5 ml/ Insulin Human Regular 40 unit/ Potassium Chloride 20 meq/ Total Parenteral Nutrition/Amino Acids/Dextrose/ Fat Emulsion Intravenous 1,400 ml @ 58.333 mls/ hr TPN CONT IV Last administered on 08/03/19at 21:20; Start 08/03/19 at 22:00; Stop 08/04/19 at 21:59; Status DC Lidocaine HCl (Buffered Lidocaine 1%) 3 ml STK-MED ONCE .ROUTE ; Start 08/03/19 at 13:16; Stop 08/03/19 at 13:16; Status DC Lidocaine HCl (Buffered Lidocaine 1%) 6 ml 1X ONCE INJ Last administered on 08/03/19at 13:45; Start 08/03/19 at 13:30; Stop 08/03/19 at 13:31; Status DC Albumin Human 100 ml @ 100 mls/hr 1X ONCE IV Last administered on 08/03/19at 15:41; Start 08/03/19 at 15:00; Stop 08/03/19 at 15:59; Status DC Albumin Human 50 ml @ 50 mls/hr 1X ONCE IV Last administered on 08/03/19at 15:00; Start 08/03/19 at 15:00; Stop 08/03/19 at 15:59; Status DC Info (PHARMACY MONITORING -- do not chart) 1 each PRN DAILY PRN MC SEE COMMENTS; Start 08/04/19 at 11:30; Status Cancel Info (PHARMACY MONITORING -- do not chart) 1 each PRN DAILY PRN MC SEE COMMENTS; Start 08/04/19 at 11:30; Status UNV Sodium Chloride 100 meq/Potassium Phosphate 10 mmol/ Magnesium Sulfate 12 meq/Calcium Gluconate 15 meq/ Multivitamins 10 ml/Chromium/ Copper/Manganese/ Seleni/Zn 0.5 ml/ Insulin Human Regular 35 unit/ Potassium Chloride 20 meq/ Total Parenteral Nutrition/Amino Acids/Dextrose/ Fat Emulsion Intravenous 1,400 ml @ 58.333 mls/ hr TPN CONT IV Last administered on 08/04/19at 22:10; Start 08/04/19 at 22:00; Stop 08/05/19 at 21:59; Status DC Sodium Chloride 100 meq/Potassium Phosphate 5 mmol/ Magnesium Sulfate 12 meq/Calcium Gluconate 15 meq/ Multivitamins 10 ml/Chromium/ Copper/Manganese/ Seleni/Zn 0.5 ml/ Insulin Human Regular 35 unit/ Potassium Chloride 20 meq/ Total Parenteral Nutrition/Amino Acids/Dextrose/ Fat Emulsion Intravenous 1,400 ml @ 58.333 mls/ hr TPN CONT IV Last administered on 08/05/19at 22:59; Start 08/05/19 at 22:00; Stop 08/06/19 at 21:59; Status DC Sodium Chloride 1,000 ml @ 1,000 mls/hr Q1H PRN IV hypotension; Start 08/06/19 at 08:27; Stop 08/06/19 at 14:26; Status DC Albumin Human 200 ml @ 200 mls/hr 1X PRN PRN IV Hypotension Last administered on 08/06/19at 09:18; Start 08/06/19 at 08:30; Stop 08/06/19 at 14:29; Status DC Sodium Chloride 1,000 ml @ 400 mls/hr Q2H30M PRN IV PATENCY; Start 08/06/19 at 08:27; Stop 08/06/19 at 20:26; Status DC Info (PHARMACY MONITORING -- do not chart) 1 each PRN DAILY PRN MC SEE COMMENTS; Start 08/06/19 at 08:30; Status Cancel Info (PHARMACY MONITORING -- do not chart) 1 each PRN DAILY PRN MC SEE COMMENTS; Start 08/06/19 at 08:30; Stop 08/14/19 at 13:10; Status DC Sodium Chloride 100 meq/Potassium Chloride 40 meq/ Magnesium Sulfate 15 meq/Calcium Gluconate 15 meq/ Multivitamins 10 ml/Chromium/ Copper/Manganese/ Seleni/Zn 0.5 ml/ Insulin Human Regular 35 unit/ Total Parenteral Nutrition/Amino Acids/Dextrose/ Fat Emulsion Intravenous 1,400 ml @ 58.333 mls/ hr TPN CONT IV Last administered on 08/06/19at 22:00; Start 08/06/19 at 22:00; Stop 08/07/19 at 21:59; Status DC Potassium Chloride/Water 100 ml @ 100 mls/hr 1X ONCE IV Last administered on 08/06/19at 17:28; Start 08/06/19 at 14:45; Stop 08/06/19 at 15:44; Status DC Sodium Chloride 100 meq/Potassium Chloride 40 meq/ Magnesium Sulfate 15 meq/Calcium Gluconate 15 meq/ Multivitamins 10 ml/Chromium/ Copper/Manganese/ Seleni/Zn 0.5 ml/ Insulin Human Regular 35 unit/ Total Parenteral Nutr ition/Amino Acids/Dextrose/ Fat Emulsion Intravenous 1,400 ml @ 58.333 mls/ hr TPN CONT IV Last administered on 08/07/19at 22:46; Start 08/07/19 at 22:00; Stop 08/08/19 at 21:59; Status DC Sodium Chloride 100 meq/Potassium Chloride 40 meq/ Magnesium Sulfate 20 meq/Calcium Gluconate 15 meq/ Multivitamins 10 ml/Chromium/ Copper/Manganese/ Seleni/Zn 0.5 ml/ Insulin Human Regular 35 unit/ Total Parenteral Nutrition/Amino Acids/Dextrose/ Fat Emulsion Intravenous 1,400 ml @ 58.333 mls/ hr TPN CONT IV Last administered on 08/08/19at 22:31; Start 08/08/19 at 22:00; Stop 08/09/19 at 21:59; Status DC Fentanyl Citrate (Fentanyl 2ml Vial) 50 mcg PRN Q2HR PRN IVP PAIN Last administered on 08/15/19at 13:32; Start 08/08/19 at 21:00; Stop 08/16/19 at 12:53; Status DC Fentanyl Citrate (Fentanyl 2ml Vial) 25 mcg PRN Q2HR PRN IVP PAIN; Start 08/08/19 at 21:00; Stop 08/16/19 at 12:54; Status DC Enoxaparin Sodium (Lovenox 100mg Syringe) 100 mg Q12HR SQ ; Start 08/09/19 at 21:00; Status UNV Amino Acids/ Glycerin/ Electrolytes 1,000 ml @ 75 mls/hr [id number] IV ; Start 08/08/19 at 21:15; Status UNV Sodium Chloride 1,000 ml @ 1,000 mls/hr Q1H PRN IV hypotension; Start 08/09/19 at 07:56; Stop 08/09/19 at 13:55; Status DC Albumin Human 200 ml @ 200 mls/hr 1X PRN PRN IV Hypotension Last administered on 08/09/19at 08:40; Start 08/09/19 at 08:00; Stop 08/09/19 at 13:59; Status DC Sodium Chloride 1,000 ml @ 400 mls/hr Q2H30M PRN IV PATENCY; Start 08/09/19 at 07:56; Stop 08/09/19 at 19:55; Status DC Info (PHARMACY MONITORING -- do not chart) 1 each PRN DAILY PRN MC SEE COMMENTS; Start 08/09/19 at 08:00; Status UNV Info (PHARMACY MONITORING -- do not chart) 1 each PRN DAILY PRN MC SEE COMMENTS; Start 08/09/19 at 08:00; Status UNV Daptomycin 430 mg/ Sodium Chloride 50 ml @ 100 mls/hr Q24H IV Last administered on 08/09/19at 12:35; Start 08/09/19 at 09:00; Stop 08/09/19 at 12:49; Status DC Sodium Chloride 100 meq/Potassium Chloride 40 meq/ Magnesium Sulfate 20 meq/Calcium Gluconate 15 meq/ Multivitamins 10 ml/Chromium/ Copper/Manganese/ Seleni/Zn 0.5 ml/ Insulin Human Regular 35 unit/ Total Parenteral Nutrition/Amino Acids/Dextrose/ Fat Emulsion Intravenous 1,400 ml @ 58.333 mls/ hr TPN CONT IV Last administered on 08/09/19at 21:26; Start 08/09/19 at 22:00; Stop 08/10/19 at 21:59; Status DC Daptomycin 430 mg/ Sodium Chloride 50 ml @ 100 mls/hr Q48H IV ; Start 08/11/19 at 09:00; Stop 08/10/19 at 11:55; Status DC Sodium Chloride 100 meq/Potassium Chloride 40 meq/ Magnesium Sulfate 20 meq/Calcium Gluconate 15 meq/ Multivitamins 10 ml/Chromium/ Copper/Manganese/ Seleni/Zn 0.5 ml/ Insulin Human Regular 35 unit/ Total Parenteral Nutrition/Amino Acids/Dextrose/ Fat Emulsion Intravenous 1,400 ml @ 58.333 mls/ hr TPN CONT IV Last administered on 08/10/19at 22:27; Start 08/10/19 at 22:00; Stop 08/11/19 at 21:59; Status DC Daptomycin 430 mg/ Sodium Chloride 50 ml @ 100 mls/hr Q24H IV Last administered on 08/12/19at 15:07; Start 08/10/19 at 13:00; Stop 08/13/19 at 13:15; Status DC Sodium Chloride 100 meq/Potassium Chloride 40 meq/ Magnesium Sulfate 20 meq/Calcium Gluconate 10 meq/ Multivitamins 10 ml/Chromium/ Copper/Manganese/ Seleni/Zn 0.5 ml/ Insulin Human Regular 35 unit/ Total Parenteral Nutrition/Amino Acids/Dextrose/ Fat Emulsion Intravenous 1,400 ml @ 58.333 mls/ hr TPN CONT IV Last administered on 08/12/19at 00:06; Start 08/11/19 at 22:00; Stop 08/12/19 at 21:59; Status DC Alteplase, Recombinant (Cathflo For Central Catheter Clearance) 1 mg 1X ONCE INT CAT Last administered on 08/12/19at 11:44; Start 08/12/19 at 10:45; Stop 08/12/19 at 10:46; Status DC Ondansetron HCl (Zofran) 4 mg PRN Q6HRS PRN IV NAUSEA/VOMITING; Start 08/15/19 at 07:00; Stop 08/16/19 at 06:59; Status DC Fentanyl Citrate (Fentanyl 2ml Vial) 25 mcg PRN Q5MIN PRN IV MILD PAIN 1-3; Start 08/15/19 at 07:00; Stop 08/16/19 at 06:59; Status DC Fentanyl Citrate (Fentanyl 2ml Vial) 50 mcg PRN Q5MIN PRN IV MODERATE TO SEVERE PAIN Last administered on 08/15/19at 10:17; Start 08/15/19 at 07:00; Stop 08/16/19 at 06:59; Status DC Ringer's Solution 1,000 ml @ 30 mls/hr Q24H IV ; Start 08/15/19 at 07:00; Stop 08/15/19 at 18:59; Status DC Lidocaine HCl (Xylocaine-Mpf 1% 2ml Vial) 2 ml PRN 1X PRN ID PRIOR TO IV START; Start 08/15/19 at 07:00; Stop 08/16/19 at 06:59; Status DC Prochlorperazine Edisylate (Compazine) 5 mg PACU PRN PRN IV NAUSEA, MRX1; Start 08/15/19 at 07:00; Stop 08/16/19 at 06:59; Status DC Sodium Acetate 50 meq/Potassium Acetate 55 meq/ Magnesium Sulfate 20 meq/Calcium Gluconate 10 meq/ Multivitamins 10 ml/Chromium/ Copper/Manganese/ Seleni/Zn 0.5 ml/ Insulin Human Regular 35 unit/ Total Parenteral Nutrition/Amino Acids/Dextrose/ Fat Emulsion Intravenous 1,400 ml @ 58.333 mls/ hr TPN CONT IV ; Start 08/12/19 at 22:00; Stop 08/12/19 at 14:15; Status DC Sodium Acetate 50 meq/Potassium Acetate 55 meq/ Magnesium Sulfate 20 meq/Calcium Gluconate 10 meq/ Multivitamins 10 ml/Chromium/ Copper/Manganese/ Seleni/Zn 0.5 ml/ Insulin Human Regular 35 unit/ Total Parenteral Nutrition/Amino Acids/Dextrose/ Fat Emulsion Intravenous 1,800 ml @ 75 mls/hr TPN CONT IV Last administered on 08/12/19at 22:38; Start 08/12/19 at 22:00; Stop 08/13/19 at 21:59; Status DC Sodium Chloride 1,000 ml @ 1,000 mls/hr Q1H PRN IV hypotension; Start 08/12/19 at 15:31; Stop 08/12/19 at 21:30; Status DC Diphenhydramine HCl (Benadryl) 25 mg 1X PRN PRN IV ITCHING; Start 08/12/19 at 15:45; Stop 08/13/19 at 15:44; Status DC Diphenhydramine HCl (Benadryl) 25 mg 1X PRN PRN IV ITCHING; Start 08/12/19 at 15:45; Stop 08/13/19 at 15:44; Status DC Sodium Chloride 1,000 ml @ 400 mls/hr Q2H30M PRN IV PATENCY; Start 08/12/19 at 15:31; Stop 08/13/19 at 03:30; Status DC Info (PHARMACY MONITORING -- do not chart) 1 each PRN DAILY PRN MC SEE COMMENTS; Start 08/12/19 at 15:45 Sodium Acetate 50 meq/Potassium Acetate 55 meq/ Magnesium Sulfate 20 meq/Calcium Gluconate 10 meq/ Multivitamins 10 ml/Chromium/ Copper/Manganese/ Seleni/Zn 0.5 ml/ Insulin Human Regular 35 unit/ Total Parenteral Nutrition/Amino Acids/Dextrose/ Fat Emulsion Intravenous 1,800 ml @ 75 mls/hr TPN CONT IV Last administered on 08/13/19at 22:03; Start 08/13/19 at 22:00; Stop 08/14/19 at 21:59; Status DC Daptomycin 430 mg/ Sodium Chloride 50 ml @ 100 mls/hr Q24H IV Last administered on 08/18/19at 13:00; Start 08/13/19 at 13:00; Stop 08/18/19 at 20:58; Status DC Heparin Sodium (Porcine) 1000 unit/Sodium Chloride 1,001 ml @ 1,001 mls/hr 1X ONCE IRR ; Start 08/15/19 at 06:00; Stop 08/15/19 at 06:59; Status DC Potassium Acetate 55 meq/Magnesium Sulfate 20 meq/ Calcium Gluconate 10 meq/ Multivitamins 10 ml/Chromium/ Copper/Manganese/ Seleni/Zn 0.5 ml/ Insulin Human Regular 35 unit/ Total Parenteral Nutrition/Amino Acids/Dextrose/ Fat Emulsion Intravenous 1,920 ml @ 80 mls/hr TPN CONT IV Last administered on 08/14/19at 22:10; Start 08/14/19 at 22:00; Stop 08/15/19 at 21:59; Status DC Dexamethasone Sodium Phosphate (Decadron) 4 mg STK-MED ONCE .ROUTE ; Start 08/15/19 at 10:56; Stop 08/15/19 at 10:57; Status DC Ondansetron HCl (Zofran) 4 mg STK-MED ONCE .ROUTE ; Start 08/15/19 at 10:56; Stop 08/15/19 at 10:57; Status DC Rocuronium [place] (Zemuron) 50 mg STK-MED ONCE .ROUTE ; Start 08/15/19 at 10:56; Stop 08/15/19 at 10:57; Status DC Fentanyl Citrate (Fentanyl 2ml Vial) 100 mcg STK-MED ONCE .ROUTE ; Start 08/15/19 at 10:56; Stop 08/15/19 at 10:57; Status DC Bupivacaine HCl/ Epinephrine Bitart (Sensorcain-Epi 0.5%-1:[id number] Mpf) 30 ml STK-MED ONCE .ROUTE Last administered on 08/15/19at 12:01; Start 08/15/19 at 10:58; Stop 08/15/19 at 10:58; Status DC Cellulose (Surgicel Hemostat 2x14) 1 each STK-MED ONCE .ROUTE ; Start 08/15/19 a t 10:58; Stop 08/15/19 at 10:59; Status DC Iohexol (Omnipaque 300 Mg/ml) 50 ml STK-MED ONCE .ROUTE ; Start 08/15/19 at 10:58; Stop 08/15/19 at 10:59; Status DC Cellulose (Surgicel Hemostat 4x8) 1 each STK-MED ONCE .ROUTE ; Start 08/15/19 at 10:58; Stop 08/15/19 at 10:59; Status DC Bisacodyl (Dulcolax Supp) 10 mg STK-MED ONCE .ROUTE ; Start 08/15/19 at 10:59; Stop 08/15/19 at 10:59; Status DC Heparin Sodium (Porcine) 1000 unit/Sodium Chloride 1,001 ml @ 1,001 mls/hr 1X ONCE IRR ; Start 08/15/19 at 12:00; Stop 08/15/19 at 12:59; Status DC Propofol 20 ml @ As Directed STK-MED ONCE IV ; Start 08/15/19 at 11:05; Stop 08/15/19 at 11:05; Status DC Sevoflurane (Ultane) 90 ml STK-MED ONCE IH ; Start 08/15/19 at 11:05; Stop 08/15/19 at 11:05; Status DC Sevoflurane (Ultane) 60 ml STK-MED ONCE IH ; Start 08/15/19 at 12:26; Stop 08/15/19 at 12:27; Status DC Propofol 20 ml @ As Directed STK-MED ONCE IV ; Start 08/15/19 at 12:26; Stop 08/15/19 at 12:27; Status DC Phenylephrine HCl (PHENYLEPHRINE in 0.9% NACL PF) 1 mg STK-MED ONCE IV ; Start 08/15/19 at 12:34; Stop 08/15/19 at 12:34; Status DC Heparin Sodium (Porcine) (Heparin Sodium) 5,000 unit Q12HR SQ Last administered on 08/18/19at 21:22; Start 08/15/19 at 21:00 Sodium Chloride (Normal Saline Flush) 3 ml QSHIFT PRN IV AFTER MEDS AND BLOOD DRAWS; Start 08/15/19 at 13:45 Naloxone HCl (Narcan) 0.4 mg PRN Q2MIN PRN IV SEE INSTRUCTIONS; Start 08/15/19 at 13:45 Sodium Chloride 1,000 ml @ 25 mls/hr Q24H IV Last administered on 08/18/19at 13:01; Start 08/15/19 at 13:37 Naloxone HCl (Narcan) 0.4 mg PRN Q2MIN PRN IV SEE INSTRUCTIONS; Start 08/15/19 at 14:30; Status UNV Sodium Chloride 1,000 ml @ 25 mls/hr Q24H IV ; Start 08/15/19 at 14:30; Status UNV Hydromorphone HCl 30 ml @ 0 mls/hr CONT PRN PRN IV PER PROTOCOL Last administered on 08/18/19at 17:20; Start 08/15/19 at 14:30 Potassium Acetate 55 meq/Magnesium Sulfate 20 meq/ Calcium Gluconate 10 meq/ Multivitamins 10 ml/Chromium/ Copper/Manganese/ Seleni/Zn 0.5 ml/ Insulin Human Regular 35 unit/ Total Parenteral Nutrition/Amino Acids/Dextrose/ Fat Emulsion Intravenous 1,920 ml @ 80 mls/hr TPN CONT IV Last administered on 08/15/19at 22:01; Start 08/15/19 at 22:00; Stop 08/16/19 at 21:59; Status DC Bumetanide (Bumex) 2 mg [id number] IV Last administered on 08/18/19at 13:01; Start 08/16/19 at 14:00 Meropenem 1 gm/ Sodium Chloride 100 ml @ 200 mls/hr Q8HRS IV Last administered on 08/19/19at 05:11; Start 08/16/19 at 14:00 Potassium Acetate 55 meq/Magnesium Sulfate 20 meq/ Calcium Gluconate 10 meq/ Multivitamins 10 ml/Chromium/ Copper/Manganese/ Seleni/Zn 0.5 ml/ Insulin Human Regular 35 unit/ Total Parenteral Nutrition/Amino Acids/Dextrose/ Fat Emulsion Intravenous 1,920 ml @ 80 mls/hr TPN CONT IV Last administered on 08/16/19at 22:02; Start 08/16/19 at 22:00; Stop 08/17/19 at 21:59; Status DC Hydromorphone HCl (Dilaudid Standard SLAB LIFTING ENGINEER) 12 mg STK-MED ONCE IV ; Start 08/15/19 at 14:35; Stop 08/16/19 at 13:53; Status DC Artificial Tears (Artificial Tears) 1 drop PRN Q15MIN PRN OU DRY EYE Last administered on 08/18/19at 08:16; Start 08/17/19 at 05:30 Hydromorphone HCl (Dilaudid Standard SLAB LIFTING ENGINEER) 12 mg STK-MED ONCE IV ; Start 08/16/19 at 12:05; Stop 08/17/19 at 09:15; Status DC Potassium Acetate 65 meq/Magnesium Sulfate 20 meq/ Calcium Gluconate 10 meq/ Multivitamins 10 ml/Chromium/ Copper/Manganese/ Seleni/Zn 0.5 ml/ Insulin Human Regular 30 unit/ Total Parenteral Nutrition/Amino Acids/Dextrose/ Fat Emulsion Intravenous 1,920 ml @ 80 mls/hr TPN CONT IV Last administered on 08/17/19at 22:22; Start 08/17/19 at 22:00; Stop 08/18/19 at 21:59; Status DC Cyclobenzaprine HCl (Flexeril) 10 mg PRN Q6HRS PRN PO MUSCLE SPASMS; Start 08/18/19 at 10:45 Potassium Acetate 55 meq/Magnesium Sulfate 20 meq/ Calcium Gluconate 10 meq/ Multivitamins 10 ml/Chromium/ Copper/Manganese/ Seleni/Zn 0.5 ml/ Insulin Human Regular 30 unit/ Total Parenteral Nutrition/Amino Acids/Dextrose/ Fat Emulsion Intravenous 1,920 ml @ 80 mls/hr TPN CONT IV Last administered on 08/19/19at 01:00; Start 08/18/19 at 22:00; Stop 08/19/19 at 21:59 Magnesium Sulfate 50 ml @ 25 mls/hr 1X ONCE IV Last administered on 4/30/20at 17:18; Start 08/18/19 at 12:45; Stop 08/18/19 at 14:44; Status DC Active Scripts Active Reported Bisoprolol Fumarate 5 Mg Tablet 10 Mg PO DAILY Vitals/I & O Vital Sign - Last 24 Hours 08/18/19 08/18/19 08/18/19 08/18/19 09:00 10:00 11:00 11:17 Pulse 80 104 90 Resp 22 20 B/P (MAP) 91/59 (70) 100/64 (76) 138/71 (93) Pulse Ox 98 99 97 97 O2 Delivery Ventilator Ventilator Tracheal Collar Tracheal Collar O2 Flow Rate 10.0 08/18/19 08/18/19 08/18/19 08/18/19 11:59 12:00 13:00 14:00 Temp 101.0 101.0 Pulse 98 117 116 Resp 21 24 B/P (MAP) 139/64 (89) 139/64 (89) 169/89 (115) Pulse Ox 98 97 99 O2 Delivery Mechanical Ventilator Tracheal Collar Tracheal Collar Tracheal Collar 08/18/19 08/18/19 08/18/19 08/18/19 15:00 16:00 16:00 17:00 Temp 99.5 99.5 Pulse 125 130 114 Resp 22 29 B/P (MAP) 152/63 (92) 125/66 (85) 102/62 (75) Pulse Ox 98 98 97 O2 Delivery Tracheal Collar Tracheal Collar Trach Collar Tracheal Collar 08/18/19 08/18/19 08/18/19 08/18/19 17:20 17:50 18:00 19:00 Temp 98.8 98.8 98.8 98.8 Pulse 108 110 Resp 27 24 27 B/P (MAP) 129/70 (89) 158/77 (104) Pulse Ox 97 97 97 98 O2 Delivery Tracheal Collar Tracheal Collar Tracheal Collar Tracheal Collar O2 Flow Rate 9.0 08/18/19 08/18/19 08/18/19 08/18/19 20:00 20:00 21:00 22:00 Temp 99.0 99.0 99.4 99.0 99.0 99.4 Pulse 114 108 122 Resp 34 35 36 B/P (MAP) 150/82 (104) 154/76 (102) 171/88 (115) Pulse Ox 96 97 98 O2 Delivery Trach Collar Tracheal Collar Tracheal Collar O2 Flow Rate 10.0 9.0 9.0 08/18/19 08/19/19 08/19/19 08/19/19 23:00 00:00 00:00 01:00 Temp 99.5 99.5 99.6 99.5 99.5 99.6 Pulse 104 134 106 Resp 30 30 33 B/P (MAP) 134/67 (89) 130/66 (87) 138/63 (88) Pulse Ox 96 96 98 O2 Delivery Tracheal Collar Trach Collar Tracheal Collar Tracheal Collar O2 Flow Rate 9.0 9.0 9.0 9.0 08/19/19 08/19/19 08/19/19 08/19/19 02:00 03:00 04:00 04:00 Temp 99.6 99.0 99.6 99.6 99.0 99.6 Pulse 106 124 118 Resp 31 40 B/P (MAP) 181/83 (115) 142/71 (94) 176/79 (111) Pulse Ox 98 96 96 O2 Delivery Tracheal Collar Tracheal Collar Trach Collar Tracheal Collar O2 Flow Rate 9.0 9.0 9.0 9.0 08/19/19 08/19/19 08/19/19 05:00 06:00 07:05 Temp 98.3 98.3 Pulse 128 130 Resp 38 40 B/P (MAP) 156/82 (106) 154/79 (104) Pulse Ox 96 96 98 O2 Delivery Tracheal Collar Tracheal Collar Tracheal Collar O2 Flow Rate 9.0 9.0 10.0 Intake and Output 08/18/19 08/18/19 08/19/19 15:00 23:00 07:00 Intake Total 150 ml 1262 ml 1114 ml Output Total 2840 ml 945 ml 3000 ml Balance -2690 ml 317 ml -1886 ml Hemodynamically unstable?: No Is patient in severe pain?: No Is NPO status required?: Yes DAVIN LANDEROS MD August 19, 2019 09:03
--- NOTE | 2019-08-19 10:30 | PDOC ---
Objective: Objective: D/w nurse - doing much better though had some anxiety this morning. Vital Signs: Vital Signs Date Time Temp Pulse Resp B/P (MAP) Pulse Ox O2 Delivery O2 Flow Rate FiO2 08/19/19 09:00 92 29 91/48 (62) 96 Tracheal Collar 08/19/19 08:00 98.6 98.6 08/19/19 07:05 10.0 Labs: Laboratory Tests Test 08/18/19 12:10 08/18/19 17:26 08/19/19 00:59 08/19/19 06:27 Glucose (Fingerstick) 169 mg/dL 152 mg/dL 152 mg/dL 139 mg/dL Test 08/19/19 06:30 White Blood Count 14.7 x10^3/uL Red Blood Count 2.78 x10^6/uL Hemoglobin 8.1 g/dL Hematocrit 25.3 % Mean Corpuscular Volume 91 fL Mean Corpuscular Hemoglobin 29 pg Mean Corpuscular Hemoglobin Concent 32 g/dL Red Cell Distribution Width 18.7 % Platelet Count 442 x10^3/uL Neutrophils (%) (Auto) 80 % Lymphocytes (%) (Auto) 15 % Monocytes (%) (Auto) 4 % Eosinophils (%) (Auto) 1 % Basophils (%) (Auto) 0 % Neutrophils # (Auto) 11.7 x10^3/uL Lymphocytes # (Auto) 2.2 x10^3/uL Monocytes # (Auto) 0.5 x10^3/uL Eosinophils # (Auto) 0.1 x10^3/uL Basophils # (Auto) 0.0 x10^3/uL Sodium Level 153 mmol/L Potassium Level 3.3 mmol/L Chloride Level 111 mmol/L Carbon Dioxide Level 33 mmol/L Anion Gap 9 Blood Urea Nitrogen 47 mg/dL Creatinine 0.9 mg/dL Estimated GFR (Cockcroft-Gault) 66.5 Glucose Level 150 mg/dL Calcium Level 8.7 mg/dL Phosphorus Level 4.6 mg/dL Magnesium Level 1.8 mg/dL ORDERED: SHAJI/MICHOACANO/PRETTY COMMENTS: ASCITES Procedure Result ANAEROBIC-AEROBIC CULTURE PENDING ANAEROBIC RES 1 PENDING AEROBIC CULT PENDING AEROBIC RES 1 PENDING GRAM STAIN Final Final report GRAM STAIN RES 1 Final Comment No white blood cells seen. GRAM STAIN RES 2 Final No organisms seen BLOOD CULTURE Preliminary NO GROWTH AFTER 1 DAY Imaging: Speech Path Pt now tolerating trach shield for longer periods of time (ie, hours) and NG is being clamped. ED Dodge that swallow function would be best assessed when pt can tolerate wearing PM Valve. RN called Dr Hamilton and d/w him w/this BUSINESS EDUCATION PROFESSOR present. RN stated Dr Hamilton was in agreement w/pt tolerating PM Valve use prior to swallow assessment. PLAN: 1. Obtain PM Valve from RT and initiate usage. 2. Swallow eval when pt ab le to manny wearing valve and when cleared by GI and surgery for po intake. PE: GEN: NAD - sleeping, did not awaken A/P: Necrotizing pancreatitis -- Improving. ?try PO soon Hemodynamically unstable?: No Is patient in severe pain?: No Is NPO status required?: No CYNDEE FALCON August 19, 2019 10:30
--- NOTE | 2019-08-19 11:02 | NUR ---
SS following up with discharge planing. SS discussed with RN, Echo. Pt is on TPN, IV antibiotic, and trach shield. Pt is two person assist and unable to stand at this time. [facility], [place], [id number], was able to contact pt's daughters and spoke with Norma. Appointment to complete disability packet scheduled with [facility] on , 08/25/2019, at 1500. Norma reported that she has a list of documents that she needs to bring and will be present for the meeting. Physician statement completed and signed by pt's daughter. Court documents for guardianship in chart. SS will continue to follow for discharge planning.
[2019-08-19] MEDS: BUMETANIDE 1 MG/4 ML VIAL. IV SCH ×2 (11:21→13:50)
[2019-08-19] MEDS: PANTOPRAZOLE IV PUSH 40 MG VIAL. IVP SCH (11:22)
[2019-08-19] MEDS: HEPARIN for SUB-Q USE 5,000 UNIT/ML VIAL. SQ SCH ×2 (11:24→21:41)
[2019-08-19] MEDS ORDERED: POTASSIUM CHLORIDE 20MEQ 100 ML IV ONE (12:00)
[2019-08-19] MEDS: POLYVINYL ALCOHOL 1.4% OPHTH SOLUTION 15ML BOTTLE. OU PRN (12:34)
[2019-08-19] MEDS: IV NORMAL SALINE 1000ML BAG 1,000 ML IV SCH (12:35)
--- NOTE | 2019-08-19 12:36 | PDOC ---
Renal-Progress Notes Subjective Notes Notes ABLE TO TALK SOME History of Present Illness Hx of present illness SLOWLY IMPROVING Vitals Vitals Vital Signs Date Time Temp Pulse Resp B/P (MAP) Pulse Ox O2 Delivery O2 Flow Rate FiO2 08/19/19 12:00 Trach Collar 08/19/19 12:00 120 26 129/62 (84) 08/19/19 11:33 99 08/19/19 08:00 98.6 98.6 08/19/19 07:05 10.0 Weight Weight [ ] I.O. Intake and Output Intake and Output 08/19/19 07:00 Intake Total 2526 ml Output Total 6785 ml Balance -4259 ml Intake Oral 0 ml IV Total 2526 ml Output Urine Total 6740 ml Drainage Total 45 ml Labs Labs Laboratory Tests Test 08/18/19 17:26 08/19/19 00:59 08/19/19 06:27 08/19/19 06:30 Glucose (Fingerstick) 152 mg/dL (70-99) 152 mg/dL (70-99) 139 mg/dL (70-99) White Blood Count 14.7 x10^3/uL (4.0-11.0) Red Blood Count 2.78 x10^6/uL (3.50-5.40) Hemoglobin 8.1 g/dL (12.0-15.5) Hematocrit 25.3 % (36.0-47.0) Mean Corpuscular Volume 91 fL (79-100) Mean Corpuscular Hemoglobin 29 pg (25-35) Mean Corpuscular Hemoglobin Concent 32 g/dL (31-37) Red Cell Distribution Width 18.7 % (11.5-14.5) Platelet Count 442 x10^3/uL (140-400) Neutrophils (%) (Auto) 80 % (31-73) Lymphocytes (%) (Auto) 15 % (24-48) Monocytes (%) (Auto) 4 % (0-9) Eosinophils (%) (Auto) 1 % (0-3) Basophils (%) (Auto) 0 % (0-3) Neutrophils # (Auto) 11.7 x10^3/uL (1.8-7.7) Lymphocytes # (Auto) 2.2 x10^3/uL (1.0-4.8) Monocytes # (Auto) 0.5 x10^3/uL (0.0-1.1) Eosinophils # (Auto) 0.1 x10^3/uL (0.0-0.7) Basophils # (Auto) 0.0 x10^3/uL (0.0-0.2) Sodium Level 153 mmol/L (136-145) Potassium Level 3.3 mmol/L (3.5-5.1) Chloride Level 111 mmol/L (98-107) Carbon Dioxide Level 33 mmol/L (21-32) Anion Gap 9 (6-14) Blood Urea Nitrogen 47 mg/dL (7-20) Creatinine 0.9 mg/dL (0.6-1.0) Estimated GFR (Cockcroft-Gault) 66.5 Glucose Level 150 mg/dL (70-99) Calcium Level 8.7 mg/dL (8.5-10.1) Phosphorus Level 4.6 mg/dL (2.6-4.7) Magnesium Level 1.8 mg/dL (1.8-2.4) Test 08/19/19 12:20 Glucose (Fingerstick) 147 mg/dL (70-99) Micro Micro Microbiology 08/17/19 Blood Culture - Preliminary, Resulted NO GROWTH AFTER 1 DAY 08/15/19 Aerobic and Anaerobic Culture, Resulted Pending 08/15/19 Anaerobic Culture Result 1 (ALEXANDRA), Resulted Pending 08/15/19 Aerobic Culture, Resulted Pending 08/15/19 Aerobic Culture Result 1 (ALEXANDRA), Resulted Pending 08/15/19 Gram Stain - Final, Resulted 08/15/19 Gram Stain Result 1 (ALEXANDRA) - Final, Resulted 08/15/19 Gram Stain Result 2 (ALEXANDRA) - Final, Resulted 07/31/19 Urine Culture - Final, Complete 07/31/19 Urine Culture Result 1 (ALEXANDRA) - Final, Complete Review of Systems Constitutional: yes: other (DIFFICULT FOR HER TO TALK) Physical Exam General Appearance: other (ON THE VENT, TRACH) Skin: warm Respiratory: decreased breath sounds Heart: S1S2 Abdomen: soft, bowel sounds present Genitourinary: bladder flat Extremities: pulses present, edema Neurology: alert, oriented, other Assessment Assessment IMP FEVER AND LEUCOCYTOSIS-?SEPSIS HYPERNATREMIA-STABLE [id number] IMPROVED AND OFF HD FOR NOW ANEMIA ANASARCA DUE TO 3RD SPACING HYPERKALEMIA-RESOLVED ACIDOSIS AND ACIDEMIA-RESOLVED ACUTE REPS FAILURE-TRACH ACUTE PANCREATITIS MALNUTRITION PLAN CONT TO HOLD HD FOR NOW TPN TO CONTINUE NEEDED PRBC NEEDED START HIRAM IF NEEDED VENT SUPPORT CONT IV LASIX ANTIBIOTICS-ID EVAL AND TX WILL NEED LTAC WILL FOLLOW DONI GARCIA MD August 19, 2019 12:36
--- NOTE | 2019-08-19 12:57 | PDOC ---
PULMONARY PROGRESS NOTES Subjective Patient intubated on 07/10 , s/p trach 07/24, on vent Taken to the OR 08/14, NO SURGERY DONE / NOT A CANDIDATE DID TS ALL NIGHT YESTERDAY/ PM VALVE Vitals Vital Signs Date Time Temp Pulse Resp B/P (MAP) Pulse Ox O2 Delivery O2 Flow Rate FiO2 08/19/19 12:00 Trach Collar 08/19/19 12:00 99.5 120 26 129/62 (84) 99.5 08/19/19 11:33 99 08/19/19 07:05 10.0 Comments ros unable to obtain on vent General: Alert HEENT: Other (nc at perrl nose clear nech trach site ok no lad no thyromegaly) Lungs: Crackles Cardiovascular: S1, S2 Abdomen: Soft, Non-tender, Other (distended) Neuro Exam: Alert Extremities: Other (+3 generalized edema ) Skin: Warm, Dry Labs Laboratory Tests Test 08/17/19 17:07 08/18/19 00:34 08/18/19 08:20 08/18/19 12:10 Glucose (Fingerstick) 133 mg/dL (70-99) 112 mg/dL (70-99) 169 mg/dL (70-99) White Blood Count 11.3 x10^3/uL (4.0-11.0) Red Blood Count 2.66 x10^6/uL (3.50-5.40) Hemoglobin 7.7 g/dL (12.0-15.5) Hematocrit 24.5 % (36.0-47.0) Mean Corpuscular Volume 92 fL (79-100) Mean Corpuscular Hemoglobin 29 pg (25-35) Mean Corpuscular Hemoglobin Concent 32 g/dL (31-37) Red Cell Distribution Width 18.6 % (11.5-14.5) Platelet Count 411 x10^3/uL (140-400) Sodium Level 152 mmol/L (136-145) Potassium Level 3.6 mmol/L (3.5-5.1) Chloride Level 113 mmol/L (98-107) Carbon Dioxide Level 33 mmol/L (21-32) Anion Gap 6 (6-14) Blood Urea Nitrogen 51 mg/dL (7-20) Creatinine 1.1 mg/dL (0.6-1.0) Estimated GFR (Cockcroft-Gault) 52.8 Glucose Level 119 mg/dL (70-99) Calcium Level 8.5 mg/dL (8.5-10.1) Magnesium Level 1.7 mg/dL (1.8-2.4) Test 08/18/19 17:26 08/19/19 00:59 08/19/19 06:27 08/19/19 06:30 Glucose (Fingerstick) 152 mg/dL (70-99) 152 mg/dL (70-99) 139 mg/dL (70-99) White Blood Count 14.7 x10^3/uL (4.0-11.0) Red Blood Count 2.78 x10^6/uL (3.50-5.40) Hemoglobin 8.1 g/dL (12.0-15.5) Hematocrit 25.3 % (36.0-47.0) Mean Corpuscular Volume 91 fL (79-100) Mean Corpuscular Hemoglobin 29 pg (25-35) Mean Corpuscular Hemoglobin Concent 32 g/dL (31-37) Red Cell Distribution Width 18.7 % (11.5-14.5) Platelet Count 442 x10^3/uL (140-400) Neutrophils (%) (Auto) 80 % (31-73) Lymphocytes (%) (Auto) 15 % (24-48) Monocytes (%) (Auto) 4 % (0-9) Eosinophils (%) (Auto) 1 % (0-3) Basophils (%) (Auto) 0 % (0-3) Neutrophils # (Auto) 11.7 x10^3/uL (1.8-7.7) Lymphocytes # (Auto) 2.2 x10^3/uL (1.0-4.8) Monocytes # (Auto) 0.5 x10^3/uL (0.0-1.1) Eosinophils # (Auto) 0.1 x10^3/uL (0.0-0.7) Basophils # (Auto) 0.0 x10^3/uL (0.0-0.2) Sodium Level 153 mmol/L (136-145) Potassium Level 3.3 mmol/L (3.5-5.1) Chloride Level 111 mmol/L (98-107) Carbon Dioxide Level 33 mmol/L (21-32) Anion Gap 9 (6-14) Blood Urea Nitrogen 47 mg/dL (7-20) Creatinine 0.9 mg/dL (0.6-1.0) Estimated GFR (Cockcroft-Gault) 66.5 Glucose Level 150 mg/dL (70-99) Calcium Level 8.7 mg/dL (8.5-10.1) Phosphorus Level 4.6 mg/dL (2.6-4.7) Magnesium Level 1.8 mg/dL (1.8-2.4) Test 08/19/19 12:20 Glucose (Fingerstick) 147 mg/dL (70-99) Laboratory Tests Test 08/18/19 17:26 08/19/19 00:59 08/19/19 06:27 08/19/19 06:30 Glucose (Fingerstick) 152 mg/dL (70-99) 152 mg/dL (70-99) 139 mg/dL (70-99) White Blood Count 14.7 x10^3/uL (4.0-11.0) Red Blood Count 2.78 x10^6/uL (3.50-5.40) Hemoglobin 8.1 g/dL (12.0-15.5) Hematocrit 25.3 % (36.0-47.0) Mean Corpuscular Volume 91 fL (79-100) Mean Corpuscular Hemoglobin 29 pg (25-35) Mean Corpuscular Hemoglobin Concent 32 g/dL (31-37) Red Cell Distribution Width 18.7 % (11.5-14.5) Platelet Count 442 x10^3/uL (140-400) Neutrophils (%) (Auto) 80 % (31-73) Lymphocytes (%) (Auto) 15 % (24-48) Monocytes (%) (Auto) 4 % (0-9) Eosinophils (%) (Auto) 1 % (0-3) Basophils (%) (Auto) 0 % (0-3) Neutrophils # (Auto) 11.7 x10^3/uL (1.8-7.7) Lymphocytes # (Auto) 2.2 x10^3/uL (1.0-4.8) Monocytes # (Auto) 0.5 x10^3/uL (0.0-1.1) Eosinophils # (Auto) 0.1 x10^3/uL (0.0-0.7) Basophils # (Auto) 0.0 x10^3/uL (0.0-0.2) Sodium Level 153 mmol/L (136-145) Potassium Level 3.3 mmol/L (3.5-5.1) Chloride Level 111 mmol/L (98-107) Carbon Dioxide Level 33 mmol/L (21-32) Anion Gap 9 (6-14) Blood Urea Nitrogen 47 mg/dL (7-20) Creatinine 0.9 mg/dL (0.6-1.0) Estimated GFR (Cockcroft-Gault) 66.5 Glucose Level 150 mg/dL (70-99) Calcium Level 8.7 mg/dL (8.5-10.1) Phosphorus Level 4.6 mg/dL (2.6-4.7) Magnesium Level 1.8 mg/dL (1.8-2.4) Test 08/19/19 12:20 Glucose (Fingerstick) 147 mg/dL (70-99) Medications Active Scripts Medications Dose Route/Sig Max Daily Dose Days Date Category Bisoprolol Fumarate 5 Mg Tablet 10 Mg PO DAILY 07/04/19 Reported Comments cxr reviewed. Impression . IMPRESSION: 1. Acute hypoxemic respiratory failure secondary to ARDS status post trach, 2. Gallstone pancreatitis 3. Severe metabolic acidosis.stable 4. Acute kidney injury-stable, ON HD-- continue to improve 5. Acute gallstone pancreatitis. 6. Hypoalbuminemia. 7. Moderate persistent effusions 8. Fever- Per ID, per surgery 9. Chronic anemia 10. Covid 19 testing negative 11. Moderate to large ascites-S/P paracentisis S/P paracentisis with 4 liters removed on 08/03/19 Surgery note Operative Note: After obtaining informed consent, patient was taken to OR, induced under GETA and prepped in the usual fashion. 5 mm port placed umbilical and right mid abdomen, all under laparoscopic guidance. Large amount of ascites encountered and aspirated off. Fluid was clear with some whitish debris. Viscera was completely locked in with obliteration of all planes, preventing any significant exploration. Copious irrigation. Given patient's overall clinical improvement, favor against open procedure and attempt at cholecystectomy and/or necrosectomy, given high risk of compl ications. Cholecystectomy will need to be performed, but favor waiting 3 months. 19 KAYLIN drain placed and secured with 3 0 nylon. Skin repaired with 4 0 monocryl. Dressing placed. Patient tolerated procedure well and sent to PACU in stable condition. All counts correct. Wound class is 4. Plan . We will continue our efforts at weaning TS trials, 24 hrs as tolerated/ PM valve precedex for anxiety, lower dose Follow surgery input hep sq and protonix for prophylaxis Follow ID rec, abx per id Follow nephrology recs Nutritional support per surgery continue TPN for nutrition DVT/GI PPX d/w RN/RT VINAYAK LANDRUM MD August 19, 2019 12:57
[2019-08-19] MEDS: TPN PER PHARMACY MC PRN (13:25)
--- NOTE | 2019-08-19 13:25 | NUR ---
Pharmacy TPN Dosing Note S: SCOTT AVILA is a 48 year old F Currently receiving Central Continuous TPN started 07/06/19 B:Pertinent PMH: Necrotizing pancreatitis Height: 5 feet, 8 inches Weight: 105.0 kg Current diet: NPO LABS: Sodium: 153 Potassium: 3.3 Chloride: 111 Calcium: 8.7 Corrected Calcium: 9.74 Magnesium: 1.8 CO2: 33 SCr: 0.9 Glucose: 139-152 Albumin: 2.7 AST: 21 ALT: 11 TPN FORMULA: TPN TYPE: Central Continuous AMINO ACIDS: 90 gm DEXTROSE: 225 gm LIPIDS: 30 gm POTASSIUM CHLORIDE: 30 mEq POTASSIUM ACETATE: 30 mEq MAGNESIUM: 20 mEq CALCIUM: 10 mEq INSULIN: 30 units MULTIPLE VITAMIN: 10 ml TRACE ELEMENTS: 0.5 ml(s) TPN PLAN: TCO2 is elevated. Will change Potassium in TPN to 30 meq KCl and 30 meq KAcetate. Replaced K of 3.3 with 20 meq KCl IVPB x 1 dose today. Adjusted macros per RD recommendations. Still receiving bumex IVP BID. -BMP in AM. R: Change TPN as noted above. Will monitor electrolytes, glucose, and tolerance to TPN. MIKAYLA CHU [facility], 08/19/19 [id number]
[2019-08-19] MEDS ORDERED: HYDROmorphone STANDARD PCA 12 MG/30 ML SYRINGE. IV ONE (15:50)
--- NOTE | 2019-08-19 15:57 | NUR ---
Patient on Trach Shield 35% since yesterday. SpO2 >95%. Tolerating well. Anxiety controlled. Worked with PT/OT- currently sitting in chair. Will transfer back to bed before end of shift. Patient's mother came to visit for ~[address] assessed patient. See note. Tolerating trach shield with minimal anxiety when awake. See assessments, VS.
[2019-08-19] MEDS: HYDROmorphone 12mg/30ml PCA 30 ML IV PRN (16:15)
--- NOTE | 2019-08-19 21:20 | NUR ---
Pt very anxious, gasping for air. Pt suctioned several times and moderated amount of thick white secretions removed. O2 sats in the 80's and pt pointed at vent. Pt placed back on vent with CPAP settings, 15/5 30%. O2 sats increased to 98% quickly.
[2019-08-19] MEDS ORDERED: DEXTROSE 70% IV SCH ×10 (22:00)
[2019-08-19] MEDS ORDERED: [UNRECOGNIZED DRUG - OTHER] IV SCH ×10 (22:00)
[2019-08-19] MEDS ORDERED: TOTAL PARENTERAL NUTRITION IV SCH ×10 (22:00)
[2019-08-19] MEDS ORDERED: AMINO ACID IV SCH ×10 (22:00)
[2019-08-20] VITALS (24 sets, daily range): BP systolic 91–177; BP diastolic 47–85
[2019-08-20] MEDS: DEXMEDETOMIDINE 400 MCG in IV NORMAL SALINE 100ML 96 ML IV PRN ×6 (02:05→23:22)
[2019-08-20] MEDS: MEROPENEM 1 GM in IV NORMAL SALINE 100ML 100 ML IV SCH ×3 (05:42→23:23)
[2019-08-20] MEDS: INSULIN LISPRO 300 UNITS/3 ML VIAL. SQ SCH ×4 (05:48→18:00)
[2019-08-20 06:09] LABS: BASO % 0 % (0-3); EOS # 0.2 x10^3/uL (0.0-0.7); EOS % 2 % (0-3); HEMATOCRIT 22.4 % (36.0-47.0); HEMOGLOBIN 7.2 g/dL (12.0-15.5); LYMPH # 1.5 x10^3/uL (1.0-4.8); LYMPH % 16 % (24-48); MEAN CORPUSCULAR HEMOGLOBIN 29 pg (25-35); MEAN CORPUSCULAR HGB CONC 32 g/dL (31-37); MEAN CORPUSCULAR VOLUME 91 fL (79-100); MONO # 0.4 x10^3/uL (0.0-1.1); MONO % 5 % (0-9); NEUT # 7.4 x10^3/uL (1.8-7.7); NEUT % 77 % (31-73); PLATELET COUNT 419 x10^3/uL (140-400); RED BLOOD COUNT 2.46 x10^6/uL (3.50-5.40); RED CELL DISTRIBUTION WIDTH 18.1 % (11.5-14.5); WHITE BLOOD COUNT 9.7 x10^3/uL (4.0-11.0)
[2019-08-20 06:18] LABS: CALCIUM 8.6 mg/dL (8.5-10.1); GFR 58.9
[2019-08-20 06:22] LABS: POTASSIUM 2.9 mmol/L (3.5-5.1)
[2019-08-20 06:23] LABS: MAGNESIUM 1.8 mg/dL (1.8-2.4); PHOSPHORUS 3.6 mg/dL (2.6-4.7)
[2019-08-20] MEDS: POTASSIUM CHLORIDE 20MEQ 100 ML IV SCH ×4 (07:29→13:05)
[2019-08-20] MEDS: PANTOPRAZOLE IV PUSH 40 MG VIAL. IVP SCH (08:20)
--- NOTE | 2019-08-20 08:48 | PDOC ---
SURGICAL PROGRESS NOTE Subjective Patient awake and alert able to answer questions somewhat confused denies any abdominal pain Vital Signs Vital Signs Date Time Temp Pulse Resp B/P (MAP) Pulse Ox O2 Delivery O2 Flow Rate FiO2 08/20/19 07:33 97 Ventilator 08/20/19 06:00 86 25 104/52 (69) 08/20/19 04:00 99.6 99.6 08/20/19 00:00 I&O Intake and Output 08/20/19 07:00 Intake Total 3127.0 ml Output Total 4170 ml Balance -1043.0 ml IV Total 3127.0 ml Output Urine Total 4085 ml Drainage Total 85 ml PATIENT HAS A ROSARIO: Yes General: Alert, Cooperative, mild distress Lungs: Clear to auscultation Heart: Regular rate, No murmurs Abdomen: Normal bowel sounds, Soft, Other (Mildly tender in epigastrium no peritoneal signs) Extremities: No edema Labs Laboratory Tests Test 08/18/19 12:10 08/18/19 17:26 08/19/19 00:59 08/19/19 06:27 Glucose (Fingerstick) 169 mg/dL (70-99) 152 mg/dL (70-99) 152 mg/dL (70-99) 139 mg/dL (70-99) Test 08/19/19 06:30 08/19/19 12:20 08/19/19 17:31 08/19/19 23:34 White Blood Count 14.7 x10^3/uL (4.0-11.0) Red Blood Count 2.78 x10^6/uL (3.50-5.40) Hemoglobin 8.1 g/dL (12.0-15.5) Hematocrit 25.3 % (36.0-47.0) Mean Corpuscular Volume 91 fL (79-100) Mean Corpuscular Hemoglobin 29 pg (25-35) Mean Corpuscular Hemoglobin Concent 32 g/dL (31-37) Red Cell Distribution Width 18.7 % (11.5-14.5) Platelet Count 442 x10^3/uL (140-400) Neutrophils (%) (Auto) 80 % (31-73) Lymphocytes (%) (Auto) 15 % (24-48) Monocytes (%) (Auto) 4 % (0-9) Eosinophils (%) (Auto) 1 % (0-3) Basophils (%) (Auto) 0 % (0-3) Neutrophils # (Auto) 11.7 x10^3/uL (1.8-7.7) Lymphocytes # (Auto) 2.2 x10^3/uL (1.0-4.8) Monocytes # (Auto) 0.5 x10^3/uL (0.0-1.1) Eosinophils # (Auto) 0.1 x10^3/uL (0.0-0.7) Basophils # (Auto) 0.0 x10^3/uL (0.0-0.2) Sodium Level 153 mmol/L (136-145) Potassium Level 3.3 mmol/L (3.5-5.1) Chloride Level 111 mmol/L (98-107) Carbon Dioxide Level 33 mmol/L (21-32) Anion Gap 9 (6-14) Blood Urea Nitrogen 47 mg/dL (7-20) Creatinine 0.9 mg/dL (0.6-1.0) Estimated GFR (Cockcroft-Gault) 66.5 Glucose Level 150 mg/dL (70-99) Calcium Level 8.7 mg/dL (8.5-10.1) Phosphorus Level 4.6 mg/dL (2.6-4.7) Magnesium Level 1.8 mg/dL (1.8-2.4) Glucose (Fingerstick) 147 mg/dL (70-99) 140 mg/dL (70-99) 134 mg/dL (70-99) Test 08/20/19 05:45 08/20/19 05:48 White Blood Count 9.7 x10^3/uL (4.0-11.0) Red Blood Count 2.46 x10^6/uL (3.50-5.40) Hemoglobin 7.2 g/dL (12.0-15.5) Hematocrit 22.4 % (36.0-47.0) Mean Corpuscular Volume 91 fL (79-100) Mean Corpuscular Hemoglobin 29 pg (25-35) Mean Corpuscular Hemoglobin Concent 32 g/dL (31-37) Red Cell Distribution Width 18.1 % (11.5-14.5) Platelet Count 419 x10^3/uL (140-400) Neutrophils (%) (Auto) 77 % (31-73) Lymphocytes (%) (Auto) 16 % (24-48) Monocytes (%) (Auto) 5 % (0-9) Eosinophils (%) (Auto) 2 % (0-3) Basophils (%) (Auto) 0 % (0-3) Neutrophils # (Auto) 7.4 x10^3/uL (1.8-7.7) Lymphocytes # (Auto) 1.5 x10^3/uL (1.0-4.8) Monocytes # (Auto) 0.4 x10^3/uL (0.0-1.1) Eosinophils # (Auto) 0.2 x10^3/uL (0.0-0.7) Basophils # (Auto) 0.0 x10^3/uL (0.0-0.2) Sodium Level 154 mmol/L (136-145) Potassium Level 2.9 mmol/L (3.5-5.1) Chloride Level 111 mmol/L (98-107) Carbon Dioxide Level 34 mmol/L (21-32) Anion Gap 9 (6-14) Blood Urea Nitrogen 45 mg/dL (7-20) Creatinine 1.0 mg/dL (0.6-1.0) Estimated GFR (Cockcroft-Gault) 58.9 Glucose Level 153 mg/dL (70-99) Calcium Level 8.6 mg/dL (8.5-10.1) Phosphorus Level 3.6 mg/dL (2.6-4.7) Magnesium Level 1.8 mg/dL (1.8-2.4) Glucose (Fingerstick) 149 mg/dL (70-99) Laboratory Tests Test 08/19/19 12:20 08/19/19 17:31 08/19/19 23:34 08/20/19 05:45 Glucose (Fingerstick) 147 mg/dL (70-99) 140 mg/dL (70-99) 134 mg/dL (70-99) White Blood Count 9.7 x10^3/uL (4.0-11.0) Red Blood Count 2.46 x10^6/uL (3.50-5.40) Hemoglobin 7.2 g/dL (12.0-15.5) Hematocrit 22.4 % (36.0-47.0) Mean Corpuscular Volume 91 fL (79-100) Mean Corpuscular Hemoglobin 29 pg (25-35) Mean Corpuscular Hemoglobin Concent 32 g/dL (31-37) Red Cell Distribution Width 18.1 % (11.5-14.5) Platelet Count 419 x10^3/uL (140-400) Neutrophils (%) (Auto) 77 % (31-73) Lymphocytes (%) (Auto) 16 % (24-48) Monocytes (%) (Auto) 5 % (0-9) Eosinophils (%) (Auto) 2 % (0-3) Basophils (%) (Auto) 0 % (0-3) Neutrophils # (Auto) 7.4 x10^3/uL (1.8-7.7) Lymphocytes # (Auto) 1.5 x10^3/uL (1.0-4.8) Monocytes # (Auto) 0.4 x10^3/uL (0.0-1.1) Eosinophils # (Auto) 0.2 x10^3/uL (0.0-0.7) Basophils # (Auto) 0.0 x10^3/uL (0.0-0.2) Sodium Level 154 mmol/L (136-145) Potassium Level 2.9 mmol/L (3.5-5.1) Chloride Level 111 mmol/L (98-107) Carbon Dioxide Level 34 mmol/L (21-32) Anion Gap 9 (6-14) Blood Urea Nitrogen 45 mg/dL (7-20) Creatinine 1.0 mg/dL (0.6-1.0) Estimated GFR (Cockcroft-Gault) 58.9 Glucose Level 153 mg/dL (70-99) Calcium Level 8.6 mg/dL (8.5-10.1) Phosphorus Level 3.6 mg/dL (2.6-4.7) Magnesium Level 1.8 mg/dL (1.8-2.4) Test 08/20/19 05:48 Glucose (Fingerstick) 149 mg/dL (70-99) Problem List Problems Medical Problems: (1) Acute pancreatitis Status: Acute (2) Cholelithiasis Status: Acute Assessment/Plan Pancreatitis, continue conservative therapy TPN We will remove NG tube CARIN MALDONADO MD August 20, 2019 08:48
[2019-08-20] MEDS: BUMETANIDE 1 MG/4 ML VIAL. IV SCH (09:00)
--- NOTE | 2019-08-20 09:55 | PDOC ---
PULMONARY PROGRESS NOTES Subjective Patient intubated on 07/10 , s/p trach 07/24, on vent Taken to the OR 08/14, NO SURGERY DONE / NOT A CANDIDATE DID TS/ PM VALVE all day Vitals Vital Signs Date Time Temp Pulse Resp B/P (MAP) Pulse Ox O2 Delivery O2 Flow Rate FiO2 08/20/19 07:33 97 Ventilator 08/20/19 06:00 86 25 104/52 (69) 08/20/19 04:00 99.6 99.6 08/20/19 00:00 General: Alert HEENT: Other (nc at perrl nose clear nech trach site ok no lad no thyromegaly) Lungs: Crackles Cardiovascular: S1, S2 Abdomen: Soft, Non-tender, Other (distended) Neuro Exam: Alert Extremities: Other (+3 generalized edema ) Skin: Warm, Dry Labs Laboratory Tests Test 08/18/19 12:10 08/18/19 17:26 08/19/19 00:59 08/19/19 06:27 Glucose (Fingerstick) 169 mg/dL (70-99) 152 mg/dL (70-99) 152 mg/dL (70-99) 139 mg/dL (70-99) Test 08/19/19 06:30 08/19/19 12:20 08/19/19 17:31 08/19/19 23:34 White Blood Count 14.7 x10^3/uL (4.0-11.0) Red Blood Count 2.78 x10^6/uL (3.50-5.40) Hemoglobin 8.1 g/dL (12.0-15.5) Hematocrit 25.3 % (36.0-47.0) Mean Corpuscular Volume 91 fL (79-100) Mean Corpuscular Hemoglobin 29 pg (25-35) Mean Corpuscular Hemoglobin Concent 32 g/dL (31-37) Red Cell Distribution Width 18.7 % (11.5-14.5) Platelet Count 442 x10^3/uL (140-400) Neutrophils (%) (Auto) 80 % (31-73) Lymphocytes (%) (Auto) 15 % (24-48) Monocytes (%) (Auto) 4 % (0-9) Eosinophils (%) (Auto) 1 % (0-3) Basophils (%) (Auto) 0 % (0-3) Neutrophils # (Auto) 11.7 x10^3/uL (1.8-7.7) Lymphocytes # (Auto) 2.2 x10^3/uL (1.0-4.8) Monocytes # (Auto) 0.5 x10^3/uL (0.0-1.1) Eosinophils # (Auto) 0.1 x10^3/uL (0.0-0.7) Basophils # (Auto) 0.0 x10^3/uL (0.0-0.2) Sodium Level 153 mmol/L (136-145) Potassium Level 3.3 mmol/L (3.5-5.1) Chloride Level 111 mmol/L (98-107) Carbon Dioxide Level 33 mmol/L (21-32) Anion Gap 9 (6-14) Blood Urea Nitrogen 47 mg/dL (7-20) Creatinine 0.9 mg/dL (0.6-1.0) Estimated GFR (Cockcroft-Gault) 66.5 Glucose Level 150 mg/dL (70-99) Calcium Level 8.7 mg/dL (8.5-10.1) Phosphorus Level 4.6 mg/dL (2.6-4.7) Magnesium Level 1.8 mg/dL (1.8-2.4) Glucose (Fingerstick) 147 mg/dL (70-99) 140 mg/dL (70-99) 134 mg/dL (70-99) Test 08/20/19 05:45 08/20/19 05:48 White Blood Count 9.7 x10^3/uL (4.0-11.0) Red Blood Count 2.46 x10^6/uL (3.50-5.40) Hemoglobin 7.2 g/dL (12.0-15.5) Hematocrit 22.4 % (36.0-47.0) Mean Corpuscular Volume 91 fL (79-100) Mean Corpuscular Hemoglobin 29 pg (25-35) Mean Corpuscular Hemoglobin Concent 32 g/dL (31-37) Red Cell Distribution Width 18.1 % (11.5-14.5) Platelet Count 419 x10^3/uL (140-400) Neutrophils (%) (Auto) 77 % (31-73) Lymphocytes (%) (Auto) 16 % (24-48) Monocytes (%) (Auto) 5 % (0-9) Eosinophils (%) (Auto) 2 % (0-3) Basophils (%) (Auto) 0 % (0-3) Neutrophils # (Auto) 7.4 x10^3/uL (1.8-7.7) Lymphocytes # (Auto) 1.5 x10^3/uL (1.0-4.8) Monocytes # (Auto) 0.4 x10^3/uL (0.0-1.1) Eosinophils # (Auto) 0.2 x10^3/uL (0.0-0.7) Basophils # (Auto) 0.0 x10^3/uL (0.0-0.2) Sodium Level 154 mmol/L (136-145) Potassium Level 2.9 mmol/L (3.5-5.1) Chloride Level 111 mmol/L (98-107) Carbon Dioxide Level 34 mmol/L (21-32) Anion Gap 9 (6-14) Blood Urea Nitrogen 45 mg/dL (7-20) Creatinine 1.0 mg/dL (0.6-1.0) Estimated GFR (Cockcroft-Gault) 58.9 Glucose Level 153 mg/dL (70-99) Calcium Level 8.6 mg/dL (8.5-10.1) Phosphorus Level 3.6 mg/dL (2.6-4.7) Magnesium Level 1.8 mg/dL (1.8-2.4) Glucose (Fingerstick) 149 mg/dL (70-99) Laboratory Tests Test 08/19/19 12:20 08/19/19 17:31 08/19/19 23:34 08/20/19 05:45 Glucose (Fingerstick) 147 mg/dL (70-99) 140 mg/dL (70-99) 134 mg/dL (70-99) White Blood Count 9.7 x10^3/uL (4.0-11.0) Red Blood Count 2.46 x10^6/uL (3.50-5.40) Hemoglobin 7.2 g/dL (12.0-15.5) Hematocrit 22.4 % (36.0-47.0) Mean Corpuscular Volume 91 fL (79-100) Mean Corpuscular Hemoglobin 29 pg (25-35) Mean Corpuscular Hemoglobin Concent 32 g/dL (31-37) Red Cell Distribution Width 18.1 % (11.5-14.5) Platelet Count 419 x10^3/uL (140-400) Neutrophils (%) (Auto) 77 % (31-73) Lymphocytes (%) (Auto) 16 % (24-48) Monocytes (%) (Auto) 5 % (0-9) Eosinophils (%) (Auto) 2 % (0-3) Basophils (%) (Auto) 0 % (0-3) Neutrophils # (Auto) 7.4 x10^3/uL (1.8-7.7) Lymphocytes # (Auto) 1.5 x10^3/uL (1.0-4.8) Monocytes # (Auto) 0.4 x10^3/uL (0.0-1.1) Eosinophils # (Auto) 0.2 x10^3/uL (0.0-0.7) Basophils # (Auto) 0.0 x10^3/uL (0.0-0.2) Sodium Level 154 mmol/L (136-145) Potassium Level 2.9 mmol/L (3.5-5.1) Chloride Level 111 mmol/L (98-107) Carbon Dioxide Level 34 mmol/L (21-32) Anion Gap 9 (6-14) Blood Urea Nitrogen 45 mg/dL (7-20) Creatinine 1.0 mg/dL (0.6-1.0) Estimated GFR (Cockcroft-Gault) 58.9 Glucose Level 153 mg/dL (70-99) Calcium Level 8.6 mg/dL (8.5-10.1) Phosphorus Level 3.6 mg/dL (2.6-4.7) Magnesium Level 1.8 mg/dL (1.8-2.4) Test 08/20/19 05:48 Glucose (Fingerstick) 149 mg/dL (70-99) Medications Active Scripts Medications Dose Route/Sig Max Daily Dose Days Date Category Bisoprolol Fumarate 5 Mg Tablet 10 Mg PO DAILY 07/04/19 Reported Comments cxr reviewed. Impression . IMPRESSION: 1. Acute hypoxemic respiratory failure secondary to ARDS status post trach, 2. Gallstone pancreatitis 3. Severe metabolic acidosis.stable 4. Acute kidney injury-stable, ON HD-- continue to improve 5. Acute gallstone pancreatitis. 6. Hypoalbuminemia. 7. Moderate persistent effusions 8. Fever- Per ID, per surgery 9. Chronic anemia 10. Covid 19 testing negative 11. Moderate to large ascites-S/P paracentisis S/P paracentisis with 4 liters removed on 08/03/19 Surgery note Operative Note: After obtaining informed consent, patient was taken to OR, induced under GETA and prepped in the usual fashion. 5 mm port placed umbilical and right mid abdomen, all under laparoscopic guidance. Large amount of ascites encountered and aspirated off. Fluid was clear with some whitish debris. Viscera was completely locked in with obliteration of all planes, preventing any significant exploration. Copious irrigation. Given patient's overall clinical improvement, favor against open procedure and attempt at cholecystectomy and/or necrosectomy, given high risk of complications. Cholecystectomy will need to be performed, but favor waiting 3 months. 19 KAYLIN drain placed and secured with 3 0 nylon. Skin repaired with 4 0 monocryl. Dressing placed. Patient tolerated procedure well and sent to PACU in stable condition. All counts correct. Wound class is 4. Plan . We will continue our efforts at weaning TS trials, 24 hrs as tolerated/ PM valve precedex for anxiety, prn Follow surgery input hep sq and protonix for prophylaxis Follow ID rec, abx per id Follow nephrology recs Nutritional support per surgery continue TPN for nutrition DVT/GI PPX d/w RN/RT VINAYAK LANDRUM MD August 20, 2019 09:55
--- NOTE | 2019-08-20 10:06 | PDOC ---
PROGRESS NOTES Chief Complaint Chief Complaint Acute hypoxic Respiratory failure requiring mechanical ventilation (on vent since 07/10) Tracheostomy bilateral pleural effusions/pulm edema Sepsis Severe Acute gallstone pancreatitis (not a surgical candidate at this time) with necrosis Acute kidney failure now requiring dialysis Salpingitis Gallstones (Calculus of gallbladder with acute cholecystitis without obstruction) HTN Leukocytosis Hypoxia Uterine fibroid Intractable pain Intractable nausea Covid 19 negative. Acute on chronic anemia EEG: No seizure activity ESRD on HD Hyperglycemia History of Present Illness History of Present Illness Ms Diaz is a 48yo F w/ PMHx HTN, prediabetes who presented to the emergency room with complaints of abdominal pain on 07/04/2019. Found with Lipase 63902, AST 401, ALT 249, Bilirubin 1.4. CT abdomen confirms pancreatic inflammation, peripancreatic fluid and inflammatory changes around the pancreas consistent with pancreatitis. Cholelithiasis and 1.4cm uterine fibroid as well as possible left salpingitis. Admitted for further care GI, General surgery, ID, Pulm consulted. 07/04: PICC placed per IR. Renal US negative. Started on levophed. Repeat CT abdomen w/ necrosis; 07/05: Dialysis catheter per nephrology; 07/06: On BiPAP; 07/07: BiPAP, dialysis; 07/08: Overnight Tmax 101.7 , still on BiPAP FiO2 40%, still on low dose Levophed gtt, TPN initiated. On dialysis 07/24: Tracheostomy; 07/30: S/p tracheostomy on vent spontaneous respirations with 5 of pressure support 35% FiO2, rectal tube and a Lind, off pressors; 08/01:Still on vent via trach. Removed PICC and CVC LIJ and replaced. CT chest/abd/pelvis with bilateral pleural effusion and ascites. 08/02: Renal function stable. Still on vent. More interactive today. Miming wish for food. Plan discussed for thoracentesis/paracentesis with daughters today. They were under impression patient was doing worse due to a miscommunication which has been clarified over the phone. 4.3L removed. 08/04: Febrile overnight 101.8F. More interactive, still on vent. Asking for ice by miming; 08/05: Afebrile overnight. TMax last 24 hours 100.6F. Hb 7.1. Interactive when awake. 08/09: Transfusion 1u PRBC (6U total since admit) 08/10-08/13: TPN and precedex, vent. 08/14: Tmax 101F overnight. Hb 8.2. HD cath out since 08/11. Alert. On vent SIMV 35% FiO2. Surgery: ex-lap, no ronel or pancreatic necrosectomy 2/2 profound inflammation. 08/15: Seen POD #1. Afebrile overnight. BUN 62. CBC WNL today.Remains on vent via trach, TPN. Able to point today and indicate she wishes her daughters and Jamaal to be involved in her care. 08/16: Hb 7.4, Na 151. Remains on vent via trach, TPN. off HD for now. Not tolerating trach shield well. 08/17: Negative US for UE DVT. More relaxed today. Has some increase in UOP. Tolerating vent well. She is requesting to eat and drink via writing. T max 100F 24 hours ago, but 101F at 1200. Right PICC placed. Speaking valve for half the day in [facility] 08/18: Na 153 today. Good UOP. Tmax 101F at 1200 on 08/17. She becomes a bit anxious and did not sleep much last night, wishes to try to sleep this morning Able to speak well with speaking valve today. Na 153, K2.9, Mg 1.8, Cr 1. 100.4F axillary temp overnight. Asking for food. Plan: Cont vent weaning Trach shield and speaking valve during day when awake. Would recommend ABG after 4 hours to r/o CO2 retention, however and still vent overnight Monitor fever curve, no obvious source of infection, possibly some aspiration events, atelectasis Vitals Vitals Vital Signs Date Time Temp Pulse Resp B/P (MAP) Pulse Ox O2 Delivery O2 Flow Rate FiO2 08/20/19 07:33 97 Ventilator 08/20/19 06:00 86 25 104/52 (69) 08/20/19 04:00 99.6 99.6 08/20/19 00:00 Physical Exam Physical Exam GENERAL: Propped up in bed, sedated weak appearing HEENT: Pupils equal, + NGT, oral cavity dry NECK: Trach/vent LUNGS: rhonchi HEART: S1, S2, regular ABDOMEN: Distended, hypoactive BS, drain placement (08/14 ) : Lind (08/01) EXTREMITIES: Generalized edema, no cyanosis, SCDs bilaterally DERMATOLOGIC: Warm and dry. No generalized rash. CENTRAL NERVOUS SYSTEM: Extremely weak, nods to few simple questions PICC line in place August 18, 2019 clean HDC has been removed LIJ removed General: Alert, Cooperative, mild distress Heart: Regular rate, No murmurs Lungs: Crackles Abdomen: Normal bowel sounds, Soft, Other (Mildly tender in epigastrium no peritoneal signs) Extremities: No edema Skin: Other (mottling noted to extremities ) Labs LABS Laboratory Tests Test 08/19/19 12:20 08/19/19 17:31 08/19/19 23:34 08/20/19 05:45 Glucose (Fingerstick) 147 mg/dL (70-99) 140 mg/dL (70-99) 134 mg/dL (70-99) White Blood Count 9.7 x10^3/uL (4.0-11.0) Red Blood Count 2.46 x10^6/uL (3.50-5.40) Hemoglobin 7.2 g/dL (12.0-15.5) Hematocrit 22.4 % (36.0-47.0) Mean Corpuscular Volume 91 fL (79-100) Mean Corpuscular Hemoglobin 29 pg (25-35) Mean Corpuscular Hemoglobin Concent 32 g/dL (31-37) Red Cell Distribution Width 18.1 % (11.5-14.5) Platelet Count 419 x10^3/uL (140-400) Neutrophils (%) (Auto) 77 % (31-73) Lymphocytes (%) (Auto) 16 % (24-48) Monocytes (%) (Auto) 5 % (0-9) Eosinophils (%) (Auto) 2 % (0-3) Basophils (%) (Auto) 0 % (0-3) Neutrophils # (Auto) 7.4 x10^3/uL (1.8-7.7) Lymphocytes # (Auto) 1.5 x10^3/uL (1.0-4.8) Monocytes # (Auto) 0.4 x10^3/uL (0.0-1.1) Eosinophils # (Auto) 0.2 x10^3/uL (0.0-0.7) Basophils # (Auto) 0.0 x10^3/uL (0.0-0.2) Sodium Level 154 mmol/L (136-145) Potassium Level 2.9 mmol/L (3.5-5.1) Chloride Level 111 mmol/L (98-107) Carbon Dioxide Level 34 mmol/L (21-32) Anion Gap 9 (6-14) Blood Urea Nitrogen 45 mg/dL (7-20) Creatinine 1.0 mg/dL (0.6-1.0) Estimated GFR (Cockcroft-Gault) 58.9 Glucose Level 153 mg/dL (70-99) Calcium Level 8.6 mg/dL (8.5-10.1) Phosphorus Level 3.6 mg/dL (2.6-4.7) Magnesium Level 1.8 mg/dL (1.8-2.4) Test 08/20/19 05:48 Glucose (Fingerstick) 149 mg/dL (70-99) Assessment and Plan Assessmemt and Plan Problems Medical Problems: (1) Acute pancreatitis Status: Acute (2) Cholelithiasis Status: Acute Comment Review of Relevant I have reviewed the following items kolby (where applicable) has been applied. Labs Laboratory Tests Test 08/18/19 12:10 08/18/19 17:26 08/19/19 00:59 08/19/19 06:27 Glucose (Fingerstick) 169 mg/dL (70-99) 152 mg/dL (70-99) 152 mg/dL (70-99) 139 mg/dL (70-99) Test 08/19/19 06:30 08/19/19 12:20 08/19/19 17:31 08/19/19 23:34 White Blood Count 14.7 x10^3/uL (4.0-11.0) Red Blood Count 2.78 x10^6/uL (3.50-5.40) Hemoglobin 8.1 g/dL (12.0-15.5) Hematocrit 25.3 % (36.0-47.0) Mean Corpuscular Volume 91 fL (79-100) Mean Corpuscular Hemoglobin 29 pg (25-35) Mean Corpuscular Hemoglobin Concent 32 g/dL (31-37) Red Cell Distribution Width 18.7 % (11.5-14.5) Platelet Count 442 x10^3/uL (140-400) Neutrophils (%) (Auto) 80 % (31-73) Lymphocytes (%) (Auto) 15 % (24-48) Monocytes (%) (Auto) 4 % (0-9) Eosinophils (%) (Auto) 1 % (0-3) Basophils (%) (Auto) 0 % (0-3) Neutrophils # (Auto) 11.7 x10^3/uL (1.8-7.7) Lymphocytes # (Auto) 2.2 x10^3/uL (1.0-4.8) Monocytes # (Auto) 0.5 x10^3/uL (0.0-1.1) Eosinophils # (Auto) 0.1 x10^3/uL (0.0-0.7) Basophils # (Auto) 0.0 x10^3/uL (0.0-0.2) Sodium Level 153 mmol/L (136-145) Potassium Level 3.3 mmol/L (3.5-5.1) Chloride Level 111 mmol/L (98-107) Carbon Dioxide Level 33 mmol/L (21-32) Anion Gap 9 (6-14) Blood Urea Nitrogen 47 mg/dL (7-20) Creatinine 0.9 mg/dL (0.6-1.0) Estimated GFR (Cockcroft-Gault) 66.5 Glucose Level 150 mg/dL (70-99) Calcium Level 8.7 mg/dL (8.5-10.1) Phosphorus Level 4.6 mg/dL (2.6-4.7) Magnesium Level 1.8 mg/dL (1.8-2.4) Glucose (Fingerstick) 147 mg/dL (70-99) 140 mg/dL (70-99) 134 mg/dL (70-99) Test 08/20/19 05:45 08/20/19 05:48 White Blood Count 9.7 x10^3/uL (4.0-11.0) Red Blood Count 2.46 x10^6/uL (3.50-5.40) Hemoglobin 7.2 g/dL (12.0-15.5) Hematocrit 22.4 % (36.0-47.0) Mean Corpuscular Volume 91 fL (79-100) Mean Corpuscular Hemoglobin 29 pg (25-35) Mean Corpuscular Hemoglobin Concent 32 g/dL (31-37) Red Cell Distribution Width 18.1 % (11.5-14.5) Platelet Count 419 x10^3/uL (140-400) Neutrophils (%) (Auto) 77 % (31-73) Lymphocytes (%) (Auto) 16 % (24-48) Monocytes (%) (Auto) 5 % (0-9) Eosinophils (%) (Auto) 2 % (0-3) Basophils (%) (Auto) 0 % (0-3) Neutrophils # (Auto) 7.4 x10^3/uL (1.8-7.7) Lymphocytes # (Auto) 1.5 x10^3/uL (1.0-4.8) Monocytes # (Auto) 0.4 x10^3/uL (0.0-1.1) Eosinophils # (Auto) 0.2 x10^3/uL (0.0-0.7) Basophils # (Auto) 0.0 x10^3/uL (0.0-0.2) Sodium Level 154 mmol/L (136-145) Potassium Level 2.9 mmol/L (3.5-5.1) Chloride Level 111 mmol/L (98-107) Carbon Dioxide Level 34 mmol/L (21-32) Anion Gap 9 (6-14) Blood Urea Nitrogen 45 mg/dL (7-20) Creatinine 1.0 mg/dL (0.6-1.0) Estimated GFR (Cockcroft-Gault) 58.9 Glucose Level 153 mg/dL (70-99) Calcium Level 8.6 mg/dL (8.5-10.1) Phosphorus Level 3.6 mg/dL (2.6-4.7) Magnesium Level 1.8 mg/dL (1.8-2.4) Glucose (Fingerstick) 149 mg/dL (70-99) Laboratory Tests Test 08/19/19 12:20 08/19/19 17:31 08/19/19 23:34 08/20/19 05:45 Glucose (Fingerstick) 147 mg/dL (70-99) 140 mg/dL (70-99) 134 mg/dL (70-99) White Blood Count 9.7 x10^3/uL (4.0-11.0) Red Blood Count 2.46 x10^6/uL (3.50-5.40) Hemoglobin 7.2 g/dL (12.0-15.5) Hematocrit 22.4 % (36.0-47.0) Mean Corpuscular Volume 91 fL (79-100) Mean Corpuscular Hemoglobin 29 pg (25-35) Mean Corpuscular Hemoglobin Concent 32 g/dL (31-37) Red Cell Distribution Width 18.1 % (11.5-14.5) Platelet Count 419 x10^3/uL (140-400) Neutrophils (%) (Auto) 77 % (31-73) Lymphocytes (%) (Auto) 16 % (24-48) Monocytes (%) (Auto) 5 % (0-9) Eosinophils (%) (Auto) 2 % (0-3) Basophils (%) (Auto) 0 % (0-3) Neutrophils # (Auto) 7.4 x10^3/uL (1.8-7.7) Lymphocytes # (Auto) 1.5 x10^3/uL (1.0-4.8) Monocytes # (Auto) 0.4 x10^3/uL (0.0-1.1) Eosinophils # (Auto) 0.2 x10^3/uL (0.0-0.7) Basophils # (Auto) 0.0 x10^3/uL (0.0-0.2) Sodium Level 154 mmol/L (136-145) Potassium Level 2.9 mmol/L (3.5-5.1) Chloride Level 111 mmol/L (98-107) Carbon Dioxide Level 34 mmol/L (21-32) Anion Gap 9 (6-14) Blood Urea Nitrogen 45 mg/dL (7-20) Creatinine 1.0 mg/dL (0.6-1.0) Estimated GFR (Cockcroft-Gault) 58.9 Glucose Level 153 mg/dL (70-99) Calcium Level 8.6 mg/dL (8.5-10.1) Phosphorus Level 3.6 mg/dL (2.6-4.7) Magnesium Level 1.8 mg/dL (1.8-2.4) Test 08/20/19 05:48 Glucose (Fingerstick) 149 mg/dL (70-99) Microbiology 08/17/19 Blood Culture - Preliminary, Resulted NO GROWTH AFTER 2 DAYS 08/15/19 Aerobic and Anaerobic Culture, Resulted Pending 08/15/19 Anaerobic Culture Result 1 (ALEXANDRA), Resulted Pending 08/15/19 Aerobic Culture - Preliminary, Resulted 08/15/19 Aerobic Culture Result 1 (ALEXANDRA) - Preliminary, Resulted 08/15/19 Gram Stain - Final, Resulted 08/15/19 Gram Stain Result 1 (ALEXANDRA) - Final, Resulted 08/15/19 Gram Stain Result 2 (ALEXANDRA) - Final, Resulted 07/31/19 Urine Culture - Final, Complete 07/31/19 Urine Culture Result 1 (ALEXANDRA) - Final, Complete Medications Current Medications Sodium Chloride 1,000 ml @ 1,000 mls/hr Q1H IV Last administered on 07/04/19at 03:00; Start 07/04/19 at 03:00; Stop 07/04/19 at 03:59; Status DC Ondansetron HCl (Zofran) 4 mg 1X ONCE IVP Last administered on 07/04/19at 03:27; Start 07/04/19 at 03:00; Stop 07/04/19 at 03:01; Status DC Morphine Sulfate (Morphine Sulfate) 4 mg 1X ONCE IV ; Start 07/04/19 at 03:00; Stop 07/04/19 at 03:01; Status Cancel Ketorolac Tromethamine (Toradol 30mg Vial) 30 mg 1X ONCE IV Last administered on 07/04/19at 02:54; Start 07/04/19 at 03:00; Stop 07/04/19 at 03:01; Status DC Fentanyl Citrate (Fentanyl 2ml Vial) 25 mcg 1X ONCE IVP Last administered on 07/04/19at 03:23; Start 07/04/19 at 03:30; Stop 07/04/19 at 03:31; Status DC Fentanyl Citrate (Fentanyl 2ml Vial) 100 mcg STK-MED ONCE .ROUTE ; Start 07/04/19 at 03:18; Stop 07/04/19 at 03:18; Status DC Iohexol (Omnipaque 350 Mg/ml) 90 ml 1X ONCE IV Last administered on 07/04/19at 03:25; Start 07/04/19 at 03:30; Stop 07/04/19 at 03:31; Status DC Info (CONTRAST GIVEN -- Rx MONITORING) 1 each PRN DAILY PRN MC SEE COMMENTS; Start 07/04/19 at 03:30; Stop 07/06/19 at 03:29; Status DC Hydromorphone HCl (Dilaudid) 0.5 mg 1X ONCE IV Last administered on 07/04/19at 03:55; Start 07/04/19 at 04:30; Stop 07/04/19 at 04:32; Status DC Ondansetron HCl (Zofran) 4 mg PRN Q8HRS PRN IV NAUSEA/VOMITING 1ST CHOICE; Start 07/04/19 at 05:00; Stop 07/04/19 at 09:27; Status DC Morphine Sulfate (Morphine Sulfate) 2 mg PRN Q2HR PRN IV SEVERE PAIN 7-10 Last administered on 07/05/19at 12:26; Start 07/04/19 at 05:00; Stop 07/05/19 at 14:15; Status DC Sodium Chloride 1,000 ml @ 125 mls/hr Q8H IV Last administered on 07/04/19at 20:56; Start 07/04/19 at 05:00; Stop 07/05/19 at 04:59; Status DC Hydromorphone HCl (Dilaudid) 0.5 mg PRN Q3HRS PRN IV SEVERE PAIN 7-10 Last administered on 07/05/19at 10:06; Start 07/04/19 at 05:00; Stop 07/05/19 at 12:0 1; Status DC Piperacillin Sod/ Tazobactam Sod 4.5 gm/Sodium Chloride 100 ml @ 200 mls/hr 1X ONCE IV Last administered on 07/04/19at 05:44; Start 07/04/19 at 06:00; Stop 07/04/19 at 06:29; Status DC Ondansetron HCl (Zofran) 4 mg PRN Q4HRS PRN IV NAUSEA/VOMITING 1ST CHOICE Last administered on 08/12/19at 11:01; Start 07/04/19 at 09:30 Insulin Human Lispro (HumaLOG) 0-9 UNITS Q6HRS SQ Last administered on 08/18/19at 17:29; Start 07/04/19 at 09:30 Dextrose (Dextrose 50%-Water Syringe) 12.5 gm PRN Q15MIN PRN IV SEE COMMENTS; Start 07/04/19 at 09:30 Pantoprazole Sodium (PROTONIX VIAL for IV PUSH) 40 mg DAILYAC IVP Last administered on 08/20/19at 08:20; Start 07/04/19 at 11:30 Prochlorperazine Edisylate (Compazine) 10 mg PRN Q6HRS PRN IV NAUSEA/VOMITING, 2nd CHOICE Last administered on 08/17/19at 14:59; Start 07/04/19 at 17:45 Atenolol (Tenormin) 100 mg DAILY PO ; Start 07/05/19 at 09:00; Stop 07/04/19 at 20:08; Status DC Metoprolol Tartrate (Lopressor Vial) 2.5 mg Q6HRS IVP Last administered on 07/05/19at 05:51; Start 07/04/19 at 20:15; Stop 07/05/19 at 10:02; Status DC Metoprolol Tartrate (Lopressor Vial) 5 mg Q6HRS IVP Last administered on 07/14/19at 00:12; Start 07/05/19 at 10:15; Stop 07/16/19 at 08:48; Status DC Hydromorphone HCl (Dilaudid) 1 mg PRN Q3HRS PRN IV SEVERE PAIN 7-10 Last administered on 07/11/19at 05:13; Start 07/05/19 at 12:00; Stop 07/19/19 at 00:25; Status DC Lidocaine HCl (Buffered Lidocaine 1%) 3 ml STK-MED ONCE .ROUTE ; Start 07/05/19 at 12:55; Stop 07/05/19 at 12:56; Status DC Albumin Human 500 ml @ 125 mls/hr 1X ONCE IV Last administered on 07/05/19at 14:33; Start 07/05/19 at 14:30; Stop 07/05/19 at 18:32; Status DC Norepinephrine Bitartrate 8 mg/ Dextrose 258 ml @ 17.299 mls/ hr CONT PRN IV PER PROTOCOL Last administered on 08/02/19at 12:48; Start 07/05/19 at 15:30; Stop 08/05/19 at 09:19; Status DC Sodium Chloride 1,000 ml @ 125 mls/hr Q8H IV Last administered on 07/05/19at 21:04; Start 07/05/19 at 16:00; Stop 07/06/19 at 02:42; Status DC Albumin Human 500 ml @ 125 mls/hr PRN BID PRN IV After every 2L NSS & BP < 90mm Last administered on 07/20/19at 14:21; Start 07/05/19 at 16:00 Iohexol (Omnipaque 300 Mg/ml) 60 ml 1X ONCE IV Last administered on 07/05/19at 17:20; Start 07/05/19 at 17:00; Stop 07/05/19 at 17:01; Status DC Info (CONTRAST GIVEN -- Rx MONITORING) 1 each PRN DAILY PRN MC SEE COMMENTS; Start 07/05/19 at 17:00; Stop 07/07/19 at 16:59; Status DC Meropenem 1 gm/ Sodium Chloride 100 ml @ 200 mls/hr Q8HRS IV Last administered on 07/06/19at 05:45; Start 07/05/19 at 20:00; Stop 07/06/19 at 08:48; Status DC Furosemide (Lasix) 40 mg 1X ONCE IVP Last administered on 07/05/19at 22:12; Start 07/05/19 at 22:30; Stop 07/05/19 at 22:31; Status DC Calcium Chloride 1000 mg/Sodium Chloride 110 ml @ 220 mls/hr 1X ONCE IV Last administered on 07/05/19at 22:11; Start 07/05/19 at 22:30; Stop 07/05/19 at 22:59; Status DC Albuterol Sulfate (Ventolin Neb Soln) 2.5 mg 1X ONCE NEB Last administered on 07/06/19at 00:56; Start 07/05/19 at 22:30; Stop 07/05/19 at 22:31; Status DC Insulin Human Regular (HumuLIN R VIAL) 5 unit 1X ONCE IV Last administered on 07/05/19at 22:14; Start 07/05/19 at 22:30; Stop 07/05/19 at 22:31; Status DC Magnesium Sulfate 50 ml @ 25 mls/hr 1X ONCE IV Last administered on 07/06/19at 02:57; Start 07/06/19 at 03:00; Stop 07/06/19 at 04:59; Status DC Calcium Gluconate 1000 mg/Sodium Chloride 110 ml @ 220 mls/hr 1X ONCE IV Last administered on 07/06/19at 02:46; Start 07/06/19 at 03:00; Stop 07/06/19 at 03:29; Status DC Sodium Chloride 1,000 ml @ 200 mls/hr Q5H IV Last administered on 07/06/19at 02:46; Start 07/06/19 at 03:00; Stop 07/06/19 at 10:21; Status DC Calcium Gluconate 1000 mg/Sodium Chloride 110 ml @ 220 mls/hr 1X ONCE IV Last administered on 07/06/19at 03:21; Start 07/06/19 at 03:30; Stop 07/06/19 at 03:59; Status DC Sodium Bicarbonate 50 meq/Sodium Chloride 1,050 ml @ 75 mls/hr Q14H IV Last administered on 07/10/19at 21:10; Start 07/06/19 at 07:30; Stop 07/11/19 at 10:28; Status DC Calcium Gluconate 2000 mg/Sodium Chloride 120 ml @ 220 mls/hr 1X ONCE IV Last administered on 07/06/19at 09:05; Start 07/06/19 at 07:30; Stop 07/06/19 at 08:02; Status DC Lidocaine HCl (Xylocaine-Mpf 1% 2ml Vial) 2 ml STK-MED ONCE .ROUTE ; Start 07/06/19 at 08:47; Stop 07/06/19 at 08:47; Status DC Meropenem 500 mg/ Sodium Chloride 50 ml @ 100 mls/hr Q12HR IV Last administered on 07/11/19at 21:01; Start 07/06/19 at 18:00; Stop 07/12/19 at 07:58; Status DC Lidocaine HCl (Buffered Lidocaine 1%) 3 ml STK-MED ONCE .ROUTE ; Start 07/06/19 at 09:46; Stop 07/06/19 at 09:46; Status DC Lidocaine HCl (Buffered Lidocaine 1%) 6 ml 1X ONCE INJ Last administered on 07/06/19at 10:26; Start 07/06/19 at 10:15; Stop 07/06/19 at 10:16; Status DC Info (Tpn Per Pharmacy) 1 each PRN DAILY PRN MC SEE COMMENTS Last administered on 08/19/19at 13:25; Start 07/06/19 at 12:00 Sodium Chloride 1,000 ml @ 1,000 mls/hr Q1H PRN IV hypotension; Start 07/06/19 at 12:07; Stop 07/06/19 at 18:06; Status DC Diphenhydramine HCl (Benadryl) 25 mg 1X PRN PRN IV ITCHING; Start 07/06/19 at 12:15; Stop 07/07/19 at 12:14; Status DC Diphenhydramine HCl (Benadryl) 25 mg 1X PRN PRN IV ITCHING; Start 07/06/19 at 12:15; Stop 07/07/19 at 12:14; Status DC Sodium Chloride 1,000 ml @ 400 mls/hr Q2H30M PRN IV PATENCY; Start 07/06/19 at 12:07; Stop 07/07/19 at 00:06; Status DC Info (PHARMACY MONITORING -- do not chart) 1 each PRN DAILY PRN MC SEE COMMENTS; Start 07/06/19 at 12:15; Stop 07/08/19 at 08:13; Status DC Sodium Chloride 90 meq/Calcium Gluconate 10 meq/ Multivitamins 10 ml/Chromium/ Copper/Manganese/ Seleni/Zn 1 ml/ Total Parenteral Nutrition/Amino Acids/Dextrose/ Fat Emulsion Intravenous 55.005 ml @ 2.292 mls/hr TPN CONT IV ; Start 07/06/19 at 22:00; Stop 07/06/19 at 12:33; Status DC Info (Tpn Per Pharmacy) 1 each PRN DAILY PRN MC SEE COMMENTS; Start 07/06/19 at 12:30; Status UNV Sodium Chloride 90 meq/Calcium Gluconate 10 meq/ Multivitamins 10 ml/Chromium/ Copper/Manganese/ Seleni/Zn 0.5 ml/ Total Parenteral Nutrition/Amino Acids/Dextrose/ Fat Emulsion Intravenous 1,512 ml @ 63 mls/hr TPN CONT IV Last administered on 07/06/19at 22:06; Start 07/06/19 at 22:00; Stop 07/07/19 at 21:59; Status DC Calcium Carbonate/ Glycine (Tums) 500 mg PRN AFTMEALHC PRN PO INDIGESTION; Start 07/06/19 at 17:45 Calcium Gluconate (Calcium Gluconate) 2,000 mg 1X ONCE IVP Last administered on 07/07/19at 02:19; Start 07/07/19 at 02:15; Stop 07/07/19 at 02:16; Status DC Calcium Chloride 3000 mg/Sodium Chloride 1,030 ml @ 50 mls/hr [id number] IV Last administered on 07/09/19at 02:17; Start 07/07/19 at 08:00; Stop 07/09/19 at 15:23; Status DC Lorazepam (Ativan Inj) 1 mg PRN Q4HRS PRN IVP ANXIETY / AGITATION, 2nd choic Last administered on 08/05/19at 03:51; Start 07/07/19 at 09:00; Stop 08/05/19 at 09:19; Status DC Sodium Chloride 1,000 ml @ 1,000 mls/hr Q1H PRN IV hypotension; Start 07/07/19 at 08:56; Stop 07/07/19 at 14:55; Status DC Albumin Human 200 ml @ 200 mls/hr 1X PRN PRN IV Hypotension; Start 07/07/19 at 09:00; Stop 07/07/19 at 14:59; Status DC Diphenhydramine HCl (Benadryl) 25 mg 1X PRN PRN IV ITCHING; Start 07/07/19 at 09:00; Stop 07/08/19 at 08:59; Status DC Diphenhydramine HCl (Benadryl) 25 mg 1X PRN PRN IV ITCHING; Start 07/07/19 at 09:00; Stop 07/08/19 at 08:59; Status DC Sodium Chloride 1,000 ml @ 400 mls/hr Q2H30M PRN IV PATENCY; Start 07/07/19 at 08:56; Stop 07/07/19 at 20:55; Status DC Info (PHARMACY MONITORING -- do not chart) 1 each PRN DAILY PRN MC SEE COMMENTS; Start 07/07/19 at 09:00; Status UNV Info (PHARMACY MONITORING -- do not chart) 1 each PRN DAILY PRN MC SEE COMMENTS; Start 07/07/19 at 09:00; Stop 07/08/19 at 08:13; Status DC Digoxin (Lanoxin) 500 mcg 1X ONCE IV Last administered on 07/07/19at 10:04; Start 07/07/19 at 10:00; Stop 07/07/19 at 10:01; Status DC Digoxin (Lanoxin) 125 mcg 1X ONCE IV Last administered on 07/07/19at 17:10; Start 07/07/19 at 18:00; Stop 07/07/19 at 18:01; Status DC Magnesium Sulfate 100 ml @ 25 mls/hr 1X ONCE IV Last administered on 07/07/19at 12:48; Start 07/07/19 at 13:00; Stop 07/07/19 at 16:59; Status DC Sodium Chloride 90 meq/Magnesium Sulfate 10 meq/ Calcium Gluconate 20 meq/ Multivitamins 10 ml/Chromium/ Copper/Manganese/ Seleni/Zn 0.5 ml/ Total Parenteral Nutrition/Amino Acids/Dextrose/ Fat Emulsion Intravenous 1,512 ml @ 63 mls/hr TPN CONT IV Last administered on 07/07/19at 22:25; Start 07/07/19 at 22:00; Stop 07/08/19 at 21:59; Status DC Sodium Chloride 1,000 ml @ 1,000 mls/hr Q1H PRN IV hypotension; Start 07/08/19 at 08:05; Stop 07/08/19 at 14:04; Status DC Albumin Human 200 ml @ 200 mls/hr 1X ONCE IV Last administered on 07/08/19at 08:57; Start 07/08/19 at 08:15; Stop 07/08/19 at 09:14; Status DC Diphenhydramine HCl (Benadryl) 25 mg 1X PRN PRN IV ITCHING; Start 07/08/19 at 08:15; Stop 07/09/19 at 08:14; Status DC Diphenhydramine HCl (Benadryl) 25 mg 1X PRN PRN IV ITCHING; Start 07/08/19 at 08:15; Stop 07/09/19 at 08:14; Status DC Sodium Chloride 1,000 ml @ 400 mls/hr Q2H30M PRN IV PATENCY; Start 07/08/19 at 08:05; Stop 07/08/19 at 20:04; Status DC Info (PHARMACY MONITORING -- do not chart) 1 each PRN DAILY PRN MC SEE COMMENTS; Start 07/08/19 at 08:15; Stop 07/12/19 at 07:57; Status DC Sodium Chloride 90 meq/Potassium Chloride 15 meq/ Potassium Phosphate 10 mmol/ Magnesium Sulfate 10 meq/Calcium Gluconate 20 meq/ Multivitamins 10 ml/Chromium/ Copper/Manganese/ Seleni/Zn 0.5 ml/ Total Parenteral Nutrition/Amino Acids/Dextrose/ Fat Emulsion Intravenous 1,512 ml @ 63 mls/hr TPN CONT IV Last administered on 07/08/19at 21:01; Start 07/08/19 at 22:00; Stop 07/09/19 at 21:59; Status DC Potassium Chloride/Water 100 ml @ 100 mls/hr 1X ONCE IV Last administered on 07/08/19at 14:09; Start 07/08/19 at 14:00; Stop 07/08/19 at 14:59; Status DC Benzocaine (Hurricaine One) 1 spray 1X ONCE MM Last administered on 07/08/19at 16:38; Start 07/08/19 at 14:30; Stop 07/08/19 at 14:31; Status DC Lidocaine HCl (Glydo (Lidocaine) Jelly) 1 ramu 1X ONCE MM Last administered on 07/08/19at 16:38; Start 07/08/19 at 14:30; Stop 07/08/19 at 14:31; Status DC Linezolid/Dextrose 300 ml @ 300 mls/hr Q12HR IV Last administered on 07/14/19at 21:04; Start 07/08/19 at 20:00; Stop 07/15/19 at 07:50; Status DC Acetaminophen (Tylenol) 650 mg PRN Q6HRS PRN PO MILD PAIN / TEMP; Start 0 at 03:30; Stop 07/09/19 at 03:36; Status DC Acetaminophen (Tylenol) 650 mg PRN Q6HRS PRN PEG MILD PAIN / TEMP Last administered on 08/04/19at 19:56; Start 07/09/19 at 03:36 Sodium Chloride 1,000 ml @ 1,000 mls/hr Q1H PRN IV hypotension; Start 07/09/19 at 07:50; Stop 07/09/19 at 13:49; Status DC Albumin Human 200 ml @ 200 mls/hr 1X PRN PRN IV Hypotension; Start 07/09/19 at 08:00; Stop 07/09/19 at 13:59; Status DC Sodium Chloride (Normal Saline Flush) 10 ml 1X PRN PRN IV AP catheter pack; Start 07/09/19 at 08:00; Stop 07/10/19 at 07:59; Status DC Sodium Chloride (Normal Saline Flush) 10 ml 1X PRN PRN IV [employer] catheter pack; S tart 07/09/19 at 08:00; Stop 07/10/19 at 07:59; Status DC Sodium Chloride 1,000 ml @ 400 mls/hr Q2H30M PRN IV PATENCY; Start 07/09/19 at 07:50; Stop 07/09/19 at 19:49; Status DC Info (PHARMACY MONITORING -- do not chart) 1 each PRN DAILY PRN MC SEE COMM ENTS; Start 07/09/19 at 08:00; Status UNV Info (PHARMACY MONITORING -- do not chart) 1 each PRN DAILY PRN MC SEE COMMENTS; Start 07/09/19 at 08:00; Stop 07/11/19 at 08:25; Status DC Sodium Chloride 90 meq/Potassium Chloride 15 meq/ Potassium Phosphate 10 mmol/ Magnesium Sulfate 10 meq/Calcium Gluconate 20 meq/ Multivitamins 10 ml/Chromium/ Copper/Manganese/ Seleni/Zn 0.5 ml/ Total Parenteral Nutrition/Amino Acids/Dextrose/ Fat Emulsion Intravenous 1,512 ml @ 63 mls/hr TPN CONT IV Last administered on 07/09/19at 20:57; Start 07/09/19 at 22:00; Stop 07/10/19 at 21:59; Status DC Sodium Chloride 90 meq/Potassium Chloride 15 meq/ Potassium Phosphate 15 mmol/ Magnesium Sulfate 10 meq/Calcium Gluconate 20 meq/ Multivitamins 10 ml/Chromium/ Copper/Manganese/ Seleni/Zn 0.5 ml/ Total Parenteral Nutrition/Amino Acids/Dextrose/ Fat Emulsion Intravenous 1,512 ml @ 63 mls/hr TPN CONT IV ; Start 07/10/19 at 22:00; Stop 07/10/19 at 14:16; Status DC Sodium Chloride 90 meq/Potassium Chloride 15 meq/ Potassium Phosphate 15 mmol/ Magnesium Sulfate 10 meq/Calcium Gluconate 20 meq/ Multivitamins 10 ml/Chromium/ Copper/Manganese/ Seleni/Zn 0.5 ml/ Total Parenteral Nutrition/Amino Acids/Dextrose/ Fat Emulsion Intravenous 1,200 ml @ 50 mls/hr TPN CONT IV ; Start 07/10/19 at 22:00; Stop 07/10/19 at 14:17; Status DC Sodium Chloride 90 meq/Potassium Chloride 15 meq/ Potassium Phosphate 10 mmol/ Magnesium Sulfate 10 meq/Calcium Gluconate 20 meq/ Multivitamins 10 ml/Chromium/ Copper/Manganese/ Seleni/Zn 0.5 ml/ Total Parenteral Nutrition/Amino Acids/Dextrose/ Fat Emulsion Intravenous 1,200 ml @ 50 mls/hr TPN CONT IV Last administered on 07/10/19at 23:29; Start 07/10/19 at 22:00; Stop 07/11/19 at 21:59; Status DC Sodium Chloride 1,000 ml @ 1,000 mls/hr Q1H PRN IV hypotension; Start 07/11/19 at 07:28; Stop 07/11/19 at 13:27; Status DC Albumin Human 200 ml @ 200 mls/hr 1X ONCE IV Last administered on 07/11/19at 08:51; Start 07/11/19 at 07:30; Stop 07/11/19 at 08:29; Status DC Diphenhydramine HCl (Benadryl) 25 mg 1X PRN PRN IV ITCHING; Start 07/11/19 at 07:30; Stop 07/12/19 at 07:29; Status DC Diphenhydramine HCl (Benadryl) 25 mg 1X PRN PRN IV ITCHING; Start 07/11/19 at 07:30; Stop 07/12/19 at 07:29; Status DC Sodium Chloride 1,000 ml @ 400 mls/hr Q2H30M PRN IV PATENCY; Start 07/11/19 at 07:28; Stop 07/11/19 at 19:27; Status DC Info (PHARMACY MONITORING -- do not chart) 1 each PRN DAILY PRN MC SEE COMMENTS; Start 07/11/19 at 07:30; Stop 07/22/19 at 13:01; Status DC Metronidazole 100 ml @ 100 mls/hr Q6HRS IV Last administered on 07/27/19at 06:26; Start 07/11/19 at 08:30; Stop 07/27/19 at 09:58; Status DC Micafungin Sodium 100 mg/Dextrose 100 ml @ 100 mls/hr Q24H IV Last administered on 08/18/19at 08:18; Start 07/11/19 at 09:00; Stop 08/18/19 at 20:58; Status DC Propofol 0 ml @ As Directed STK-MED ONCE IV ; Start 07/11/19 at 07:53; Stop 07/11/19 at 07:53; Status DC Etomidate (Amidate) 20 mg STK-MED ONCE IV ; Start 07/11/19 at 07:53; Stop 07/11/19 at 07:54; Status DC Midazolam HCl (Versed) 5 mg STK-MED ONCE .ROUTE ; Start 07/11/19 at 07:57; Stop 07/11/19 at 07:57; Status DC Fentanyl Citrate 30 ml @ 0 mls/hr CONT PRN IV SEE PROTOCOL Last administered on 08/05/19at 06:12; Start 07/11/19 at 08:15; Stop 08/05/19 at 09:19; Status DC Artificial Tears (Artificial Tears) 1 drop PRN Q1HR PRN OU DRY EYE, 1st choice; Start 07/11/19 at 08:15; Stop 08/17/19 at 05:31; Status DC Midazolam HCl 50 mg/Sodium Chloride 50 ml @ 0 mls/hr CONT PRN IV SEE PROTOCOL Last administered on 07/14/19at 22:39; Start 07/11/19 at 08:15; Stop 07/16/19 at 15:59; Status DC Etomidate (Amidate) 8 mg 1X ONCE IV Last administered on 07/11/19at 08:33; Start 07/11/19 at 08:30; Stop 07/11/19 at 08:31; Status DC Succinylcholine Chloride (Anectine) 120 mg 1X ONCE IV Last administered on 07/11/19at 08:34; Start 07/11/19 at 08:30; Stop 07/11/19 at 08:31; Status DC Midazolam HCl (Versed) 5 mg 1X ONCE IV ; Start 07/11/19 at 08:30; Stop 07/11/19 at 08:31; Status DC Potassium Chloride 15 meq/ Bicarbonate Dialysis Soln w/ out KCl 5,007.5 ml @ 1,000 mls/ hr Q5H1M IV Last administered on 07/12/19at 11:11; Start 07/11/19 at 12:00; Stop 07/12/19 at 11:15; Status DC Potassium Chloride 15 meq/ Bicarbonate Dialysis Soln w/ out KCl 5,007.5 ml @ 1,000 mls/ hr Q5H1M IV Last administered on 07/12/19at 11:12; Start 07/11/19 at 12:00; Stop 07/12/19 at 11:17; Status DC Potassium Chloride 15 meq/ Bicarbonate Dialysis Soln w/ out KCl 5,007.5 ml @ 1,000 mls/ hr Q5H1M IV Last administered on 07/12/19at 11:11; Start 07/11/19 at 12:00; Stop 07/12/19 at 11:19; Status DC Sodium Chloride 90 meq/Potassium Chloride 15 meq/ Potassium Phosphate 10 mmol/ Magnesium Sulfate 10 meq/Calcium Gluconate 20 meq/ Multivitamins 10 ml/Chromium/ Copper/Manganese/ Seleni/Zn 0.5 ml/ Total Parenteral Nutrition/Amino Acids/Dextrose/ Fat Emulsion Intravenous 1,400 ml @ 58.333 mls/ hr TPN CONT IV Last administered on 07/11/19at 21:42; Start 07/11/19 at 22:00; Stop 07/12/19 at 21:59; Status DC Heparin Sodium (Porcine) (Heparin Sodium) 5,000 unit Q8HRS SQ Last administered on 07/16/19at 05:55; Start 07/11/19 at 15:00; Stop 07/16/19 at 13:28; Status DC Meropenem 500 mg/ Sodium Chloride 50 ml @ 100 mls/hr Q6HRS IV Last administered on 07/13/19at 06:00; Start 07/12/19 at 09:00; Stop 07/13/19 at 07:29; Status DC Potassium Phosphate 20 mmol/ Sodium Chloride 106.6667 ml @ 51.667 m... 1X ONCE IV Last administered on 07/12/19at 11:22; Start 07/12/19 at 10:15; Stop 07/12/19 at 12:18; Status DC Acetaminophen (Tylenol Supp) 650 mg PRN Q6HRS PRN [place] MILD PAIN / TEMP > 100.3'F Last administered on 08/15/19at 00:32; Start 07/12/19 at 10:30 Potassium Chloride/Water 100 ml @ 100 mls/hr Q1H IV Last administered on 07/12/19at 12:12; Start 07/12/19 at 11:00; Stop 07/12/19 at 12:59; Status DC Potassium Chloride 20 meq/ Bicarbonate Dialysis Soln w/ out KCl 5,010 ml @ 1,000 mls/hr Q5H1M IV Last administered on 07/13/19at 08:48; Start 07/12/19 at 12:00; Stop 07/13/19 at 13:03; Status DC Potassium Chloride 20 meq/ Bicarbonate Dialysis Soln w/ out KCl 5,010 ml @ 1,000 mls/hr Q5H1M IV Last administered on 07/17/19at 14:52; Start 07/12/19 at 11:30; Stop 07/17/19 at 19:59; Status DC Potassium Chloride 20 meq/ Bicarbonate Dialysis Soln w/ out KCl 5,010 ml @ 1,000 mls/hr Q5H1M IV Last administered on 07/17/19at 14:53; Start 07/12/19 at 11:30; Stop 07/17/19 at 19:59; Status DC Sodium Chloride 90 meq/Potassium Chloride 15 meq/ Potassium Phosphate 15 mmol/ Magnesium Sulfate 10 meq/Calcium Gluconate 15 meq/ Multivitamins 10 ml/Chromium/ Copper/Manganese/ Seleni/Zn 0.5 ml/ Total Parenteral Nutrition/Amino Acids/Dextrose/ Fat Emulsion Intravenous 1,400 ml @ 58.333 mls/ hr TPN CONT IV Last administered on 07/12/19at 22:17; Start 07/12/19 at 22:00; Stop 07/13/19 at 21:59; Status DC Cefepime HCl (Maxipime) 2 gm Q12HR IVP Last administered on 07/26/19at 20:56; Start 07/13/19 at 09:00; Stop 07/27/19 at 09:58; Status DC Daptomycin 500 mg/ Sodium Chloride 50 ml @ 100 mls/hr Q48H IV Last administered on 07/29/19at 09:57; Start 07/13/19 at 08:30; Stop 07/29/19 at 10:07; Status DC Lidocaine HCl (Buffered Lidocaine 1%) 3 ml 1X ONCE INJ Last administered on 07/13/19at 10:27; Start 07/13/19 at 10:30; Stop 07/13/19 at 10:31; Status DC Potassium Phosphate 20 mmol/ Sodium Chloride 106.6667 ml @ 51.667 m... 1X ONCE IV Last administered on 07/13/19at 12:51; Start 07/13/19 at 13:00; Stop 07/13/19 at 15:03; Status DC Sodium Chloride 90 meq/Potassium Chloride 15 meq/ Potassium Phosphate 18 mmol/ Magnesium Sulfate 8 meq/Calcium Gluconate 15 meq/ Multivitamins 10 ml/Chromium/ Copper/Manganese/ Seleni/Zn 0.5 ml/ Total Parenteral Nutrition/Amino Acids/Dextrose/ Fat Emulsion Intravenous 1,400 ml @ 58.333 mls/ hr TPN CONT IV Last administered on 07/13/19at 22:16; Start 07/13/19 at 22:00; Stop 07/14/19 at 21:59; Status DC Potassium Chloride 20 meq/ Bicarbonate Dialysis Soln w/ out KCl 5,010 ml @ 1,000 mls/hr Q5H1M IV Last administered on 07/17/19at 14:54; Start 07/13/19 at 16:00; Stop 07/17/19 at 19:59; Status DC Multi-Ingred Cream/Lotion/Oil/ Oint (Artificial Tears Eye Ointment) 1 ramu PRN Q1HR PRN OU DRY EYE, 2nd choice Last administered on 08/01/19at 08:19; Start 07/13/19 at 17:30 Sodium Chloride 90 meq/Potassium Chloride 15 meq/ Potassium Phosphate 18 mmol/ Magnesium Sulfate 8 meq/Calcium Gluconate 15 meq/ Multivitamins 10 ml/Chromium/ Copper/Manganese/ Seleni/Zn 0.5 ml/ Total Parenteral Nutrition/Amino Ac ids/Dextrose/ Fat Emulsion Intravenous 1,400 ml @ 58.333 mls/ hr TPN CONT IV Last administered on 07/14/19at 22:00; Start 07/14/19 at 22:00; Stop 07/15/19 at 21:59; Status DC Albumin Human 500 ml @ 125 mls/hr 1X ONCE IV ; Start 07/14/19 at 14:15; Stop 07/14/19 at 18:14; Status DC Sodium Chloride 90 meq/Potassium Chloride 15 meq/ Potassium Phosphate 18 mmol/ Magnesium Sulfate 8 meq/Calcium Gluconate 15 meq/ Multivitamins 10 ml/Chromium/ Copper/Manganese/ Seleni/Zn 0.5 ml/ Insulin Human Regular 10 unit/ Total Parenteral Nutrition/Amino Acids/Dextrose/ Fat Emulsion Intravenous 1,400 ml @ 58.333 mls/ hr TPN CONT IV Last administered on 07/15/19at 21:43; Start 07/15/19 at 22:00; Stop 07/16/19 at 21:59; Status DC Lidocaine HCl (Buffered Lidocaine 1%) 3 ml STK-MED ONCE .ROUTE ; Start 07/13/19 at 10:00; Stop 07/15/19 at 13:57; Status DC Midazolam HCl 100 mg/Sodium Chloride 100 ml @ 7 mls/hr CONT PRN IV SEE PROTOCOL Last administered on 07/27/19at 15:35; Start 07/16/19 at 16:00 Sodium Chloride 90 meq/Potassium Chloride 15 meq/ Potassium Phosphate 18 mmol/ Magnesium Sulfate 8 meq/Calcium Gluconate 15 meq/ Multivitamins 10 ml/Chromium/ Copper/Manganese/ Seleni/Zn 0.5 ml/ Insulin Human Regular 15 unit/ Total Parenteral Nutrition/Amino Acids/Dextrose/ Fat Emulsion Intravenous 1,400 ml @ 58.333 mls/ hr TPN CONT IV Last administered on 07/16/19at 20:34; Start 07/16/19 at 22:00; Stop 07/17/19 at 21:59; Status DC Info (Icu Electrolyte Protocol) 1 ea CONT PRN PRN MC PER PROTOCOL; Start 07/17/19 at 13:15 Sodium Chloride 90 meq/Potassium Chloride 15 meq/ Potassium Phosphate 18 mmol/ Magnesium Sulfate 8 meq/Calcium Gluconate 15 meq/ Multivitamins 10 ml/Chromium/ Copper/Manganese/ Seleni/Zn 0.5 ml/ Insulin Human Regular 15 unit/ Total Parenteral Nutrition/Amino Acids/Dextrose/ Fat Emulsion Intravenous 1,400 ml @ 58.333 mls/ hr TPN CONT IV Last administered on 07/17/19at 22:05; Start 07/17/19 at 22:00; Stop 07/18/19 at 21:59; Status DC Potassium Chloride 15 meq/ Bicarbonate Dialysis Soln w/ out KCl 5,007.5 ml @ 1,000 mls/ hr Q5H1M IV Last administered on 07/20/19at 18:14; Start 07/17/19 at 20:00; Stop 07/21/19 at 13:08; Status DC Potassium Chloride 15 meq/ Bicarbonate Dialysis Soln w/ out KCl 5,007.5 ml @ 1,000 mls/ hr Q5H1M IV Last administered on 07/20/19at 18:14; Start 07/17/19 at 20:00; Stop 07/21/19 at 13:08; Status DC Potassium Chloride 15 meq/ Bicarbonate Dialysis Soln w/ out KCl 5,007.5 ml @ 1,000 mls/ hr Q5H1M IV Last administered on 07/20/19at 18:14; Start 07/17/19 at 20:00; Stop 07/21/19 at 13:08; Status DC Iohexol (Omnipaque 240 Mg/ml) 30 ml 1X ONCE PO Last administered on 07/18/19at 11:30; Start 07/18/19 at 11:30; Stop 07/18/19 at 11:33; Status DC Info (CONTRAST GIVEN -- Rx MONITORING) 1 each PRN DAILY PRN MC SEE COMMENTS; Start 07/18/19 at 11:45; Stop 07/20/19 at 11:44; Status DC Sodium Chloride 90 meq/Potassium Chloride 15 meq/ Potassium Phosphate 18 mmol/ Magnesium Sulfate 8 meq/Calcium Gluconate 15 meq/ Multivitamins 10 ml/Chromium/ Copper/Manganese/ Seleni/Zn 0.5 ml/ Insulin Human Regular 15 unit/ Total Parenteral Nutrition/Amino Acids/Dextrose/ Fat Emulsion Intravenous 1,400 ml @ 58.333 mls/ hr TPN CONT IV Last administered on 07/18/19at 21:47; Start 07/18/19 at 22:00; Stop 07/19/19 at 21:59; Status DC Sodium Chloride 90 meq/Potassium Chloride 15 meq/ Potassium Phosphate 18 mmol/ Magnesium Sulfate 8 meq/Calcium Gluconate 15 meq/ Multivitamins 10 ml/Chromium/ Copper/Manganese/ Seleni/Zn 0.5 ml/ Insulin Human Regular 20 unit/ Total Parenteral Nutrition/Amino Acids/Dextrose/ Fat Emulsion Intravenous 1,400 ml @ 58.333 mls/ hr TPN CONT IV Last administered on 07/19/19at 21:36; Start 07/19/19 at 22:00; Stop 07/20/19 at 21:59; Status DC Alteplase, Recombinant (Cathflo For Central Catheter Clearance) 1 mg 1X ONCE INT CAT Last administered on 07/19/19at 20:03; Start 07/19/19 at 19:30; Stop 07/19/19 at 19:46; Status DC Alteplase, Recombinant (Cathflo For Central Catheter Clearance) 1 mg 1X ONCE INT CAT Last administered on 07/19/19at 22:05; Start 07/19/19 at 22:00; Stop 07/19/19 at 22:01; Status DC Sodium Chloride 90 meq/Potassium Chloride 15 meq/ Potassium Phosphate 18 mmol/ Magnesium Sulfate 8 meq/Calcium Gluconate 15 meq/ Multivitamins 10 ml/Chromium/ Copper/Manganese/ Seleni/Zn 0.5 ml/ Insulin Human Regular 20 unit/ Total Parenteral Nutrition/Amino Acids/Dextrose/ Fat Emulsion Intravenous 1,400 ml @ 58.333 mls/ hr TPN CONT IV Last administered on 07/20/19at 21:30; Start 07/20/19 at 22:00; Stop 07/21/19 at 21:59; Status DC Dexmedetomidine HCl 400 mcg/ Sodium Chloride 100 ml @ 0 mls/hr CONT PRN IV ANXIETY / AGITATION Last administered on 08/20/19at 05:41; Start 07/21/19 at 08:15 Sodium Chloride 500 ml @ 500 mls/hr 1X PRN PRN IV ELEVATED BP, SEE COMMENTS; Start 07/21/19 at 08:15 Atropine Sulfate (ATROPINE 0.5mg SYRINGE) 0.5 mg PRN Q5MIN PRN IV SEE COMMENTS; Start 07/21/19 at 08:15 Furosemide (Lasix) 20 mg 1X ONCE IVP Last administered on 07/21/19at 08:19; Start 07/21/19 at 08:15; Stop 07/21/19 at 08:16; Status DC Lidocaine HCl (Buffered Lidocaine 1%) 3 ml STK-MED ONCE .ROUTE ; Start 07/21/19 at 08:39; Stop 07/21/19 at 08:39; Status DC Lidocaine HCl (Buffered Lidocaine 1%) 6 ml 1X ONCE INJ Last administered on 07/21/19at 09:05; Start 07/21/19 at 09:00; Stop 07/21/19 at 09:06; Status DC Sodium Chloride 90 meq/Potassium Chloride 15 meq/ Potassium Phosphate 18 mmol/ Magnesium Sulfate 8 meq/Calcium Gluconate 15 meq/ Multivitamins 10 ml/Chromium/ Copper/Manganese/ Seleni/Zn 0.5 ml/ Insulin Human Regular 20 unit/ Total Parenteral Nutrition/Amino Acids/Dextrose/ Fat Emulsion Intravenous 1,400 ml @ 58.333 mls/ hr TPN CONT IV Last administered on 07/21/19at 22:45; Start 07/21/19 at 22:00; Stop 07/22/19 at 21:59; Status DC Sodium Chloride 1,000 ml @ 1,000 mls/hr Q1H PRN IV hypotension; Start 07/22/19 at 07:30; Stop 07/22/19 at 13:29; Status DC Albumin Human 200 ml @ 200 mls/hr 1X PRN PRN IV Hypotension Last administered on 07/22/19at 09:36; Start 07/22/19 at 07:30; Stop 07/22/19 at 13:29; Status DC Sodium Chloride (Normal Saline Flush) 10 ml 1X PRN PRN IV AP catheter pack; Start 07/22/19 at 07:30; Stop 07/22/19 at 21:29; Status DC Sodium Chloride (Normal Saline Flush) 10 ml 1X PRN PRN IV [employer] catheter pack; Start 07/22/19 at 07:30; Stop 07/23/19 at 07:29; Status DC Sodium Chloride 1,000 ml @ 400 mls/hr Q2H30M PRN IV PATENCY; Start 07/22/19 at 07:30; Stop 07/22/19 at 19:29; Status DC Info (PHARMACY MONITORING -- do not chart) 1 each PRN DAILY PRN MC SEE COMMENTS; Start 07/22/19 at 07:30; Stop 07/22/19 at 13:02; Status DC Info (PHARMACY MONITORING -- do not chart) 1 each PRN DAILY PRN MC SEE COMMENTS; Start 07/22/19 at 07:30; Stop 07/24/19 at 12:45; Status DC Sodium Chloride 90 meq/Potassium Chloride 15 meq/ Potassium Phosphate 10 mmol/ Magnesium Sulfate 8 meq/Calcium Gluconate 15 meq/ Multivitamins 10 ml/Chromium/ Copper/Manganese/ Seleni/Zn 0.5 ml/ Insulin Human Regular 25 unit/ Total Parenteral Nutrition/Amino Acids/Dextrose/ Fat Emulsion Intravenous 1,400 ml @ 58.333 mls/ hr TPN CONT IV Last administered on 07/22/19at 22:19; Start 07/22/19 at 22:00; Stop 07/23/19 at 21:59; Status DC Heparin Sodium (Porcine) (Heparin Sodium) 5,000 unit Q12HR SQ Last administered on 08/14/19at 08:59; Start 07/22/19 at 21:00; Stop 08/14/19 at 10:05; Status DC Ondansetron HCl (Zofran) 4 mg PRN Q6HRS PRN IV NAUSEA/VOMITING; Start 07/25/19 at 07:00; Stop 07/26/19 at 06:59; Status DC Fentanyl Citrate (Fentanyl 2ml Vial) 25 mcg PRN Q5MIN PRN IV MILD PAIN 1-3; Start 07/25/19 at 07:00; Stop 07/26/19 at 06:59; Status DC Fentanyl Citrate (Fentanyl 2ml Vial) 50 mcg PRN Q5MIN PRN IV MODERATE TO SEVERE PAIN; Start 07/25/19 at 07:00; Stop 07/26/19 at 06:59; Status DC Ringer's Solution 1,000 ml @ 30 mls/hr Q24H IV ; Start 07/25/19 at 07:00; Stop 07/25/19 at 18:59; Status DC Lidocaine HCl (Xylocaine-Mpf 1% 2ml Vial) 2 ml PRN 1X PRN ID PRIOR TO IV START; Start 07/25/19 at 07:00; Stop 07/26/19 at 06:59; Status DC Prochlorperazine Edisylate (Compazine) 5 mg PACU PRN PRN IV NAUSEA, MRX1; Start 07/25/19 at 07:00; Stop 07/26/19 at 06:59; Status DC Sodium Chloride 1,000 ml @ 1,000 mls/hr Q1H PRN IV hypotension; Start 07/23/19 at 09:10; Stop 07/23/19 at 15:09; Status DC Albumin Human 200 ml @ 200 mls/hr 1X PRN PRN IV Hypotension Last administered on 07/23/19at 10:10; Start 07/23/19 at 09:15; Stop 07/23/19 at 15:14; Status DC Sodium Chloride 1,000 ml @ 400 mls/hr Q2H30M PRN IV PATENCY; Start 07/23/19 at 09:10; Stop 07/23/19 at 21:09; Status DC Info (PHARMACY MONITORING -- do not chart) 1 each PRN DAILY PRN MC SEE COMMENTS; Start 07/23/19 at 09:15; Stop 07/24/19 at 12:45; Status DC Info (PHARMACY MONITORING -- do not chart) 1 each PRN DAILY PRN MC SEE COMMENTS; Start 07/23/19 at 09:15; Stop 07/24/19 at 12:45; Status DC Sodium Chloride 90 meq/Potassium Chloride 15 meq/ Potassium Phosphate 10 mmol/ Magnesium Sulfate 8 meq/Calcium Gluconate 15 meq/ Multivitamins 10 ml/Chromium/ Copper/Manganese/ Seleni/Zn 0.5 ml/ Insulin Human Regular 25 unit/ Total Parenteral Nutrition/Amino Acids/Dextrose/ Fat Emulsion Intravenous 1,400 ml @ 58.333 mls/ hr TPN CONT IV Last administered on 07/23/19at 22:10; Start 07/23/19 at 22:00; Stop 07/24/19 at 21:59; Status DC Magnesium Sulfate 50 ml @ 25 mls/hr PRN DAILY PRN IV for Mag < 1.7 on am labs Last administered on 08/08/19at 17:27; Start 07/24/19 at 09:15 Sodium Chloride 90 meq/Potassium Chloride 15 meq/ Potassium Phosphate 10 mmol/ Magnesium Sulfate 8 meq/Calcium Gluconate 15 meq/ Multivitamins 10 ml/Chromium/ Copper/Manganese/ Seleni/Zn 0.5 ml/ Insulin Human Regular 25 unit/ Total Parenteral Nutrition/Amino Acids/Dextrose/ Fat Emulsion Intravenous 1,400 ml @ 58.333 mls/ hr TPN CONT IV Last administered on 07/24/19at 21:20; Start 07/24/19 at 22:00; Stop 07/25/19 at 21:59; Status DC Sodium Chloride 1,000 ml @ 1,000 mls/hr Q1H PRN IV hypotension; Start 07/24/19 at 12:23; Stop 07/24/19 at 18:22; Status DC Albumin Human 200 ml @ 200 mls/hr 1X ONCE IV Last administered on 07/24/19at 13:34; Start 07/24/19 at 12:30; Stop 07/24/19 at 13:29; Status DC Diphenhydramine HCl (Benadryl) 25 mg 1X PRN PRN IV ITCHING; Start 07/24/19 at 12:30; Stop 07/25/19 at 12:29; Status DC Diphenhydramine HCl (Benadryl) 25 mg 1X PRN PRN IV ITCHING; Start 07/24/19 at 12:30; Stop 07/25/19 at 12:29; Status DC Info (PHARMACY MONITORING -- do not chart) 1 each PRN DAILY PRN MC SEE COMMENTS; Start 07/24/19 at 12:30; Status Cancel Bupivacaine HCl/ Epinephrine Bitart (Sensorcain-Epi 0.5%-1:[id number] Mpf) 30 ml STK-MED ONCE .ROUTE Last administered on 07/25/19at 11:44; Start 07/25/19 at 11:00; Stop 07/25/19 at 11:01; Status DC Cellulose (Surgicel Fibrillar 1x2) 1 each STK-MED ONCE .ROUTE ; Start 07/25/19 at 11:00; Stop 07/25/19 at 11:01; Status DC Sodium Chloride 90 meq/Potassium Chloride 15 meq/ Potassium Phosphate 10 mmol/ Magnesium Sulfate 12 meq/Calcium Gluconate 15 meq/ Multivitamins 10 ml/Chromium/ Copper/Manganese/ Seleni/Zn 0.5 ml/ Insulin Human Regular 25 unit/ Total Parenteral Nutrition/Amino Acids/Dextrose/ Fat Emulsion Intravenous 1,400 ml @ 58.333 mls/ hr TPN CONT IV Last administered on 07/25/19at 22:24; Start 07/25/19 at 22:00; Stop 07/26/19 at 21:59; Status DC Propofol 20 ml @ As Directed STK-MED ONCE IV ; Start 07/25/19 at 11:07; Stop 07/25/19 at 11:07; Status DC Cellulose (Surgicel Hemostat 4x8) 1 each STK-MED ONCE .ROUTE Last administered on 07/25/19at 11:44; Start 07/25/19 at 11:55; Stop 07/25/19 at 11:56; Status DC Sevoflurane (Ultane) 60 ml STK-MED ONCE IH ; Start 07/25/19 at 12:46; Stop 07/25/19 at 12:46; Status DC Sodium Chloride 1,000 ml @ 1,000 mls/hr Q1H PRN IV hypotension; Start 07/25/19 at 13:51; Stop 07/25/19 at 19:50; Status DC Albumin Human 200 ml @ 200 mls/hr 1X PRN PRN IV Hypotension Last administered on 07/25/19at 14:51; Start 07/25/19 at 14:00; Stop 07/25/19 at 19:59; Status DC Diphenhydramine HCl (Benadryl) 25 mg 1X PRN PRN IV ITCHING; Start 07/25/19 at 14:00; Stop 07/26/19 at 13:59; Status DC Diphenhydramine HCl (Benadryl) 25 mg 1X PRN PRN IV ITCHING; Start 07/25/19 at 14:00; Stop 07/26/19 at 13:59; Status DC Sodium Chloride 1,000 ml @ 400 mls/hr Q2H30M PRN IV PATENCY; Start 07/25/19 at 13:51; Stop 07/26/19 at 01:50; Status DC Info (PHARMACY MONITORING -- do not chart) 1 each PRN DAILY PRN MC SEE COMMENTS; Start 07/25/19 at 14:00; Stop 07/28/19 at 08:16; Status DC Heparin Sodium (Porcine) (Hep Lock Adult) 500 unit STK-MED ONCE IVP ; Start 07/26/19 at 09:29; Stop 07/26/19 at 09:30; Status DC Sodium Chloride 1,000 ml @ 1,000 mls/hr Q1H PRN IV hypotension; Start 07/26/19 at 10:43; Stop 07/26/19 at 16:42; Status DC Sodium Chloride 1,000 ml @ 400 mls/hr Q2H30M PRN IV PATENCY; Start 07/26/19 at 10:43; Stop 07/26/19 at 22:42; Status DC Info (PHARMACY MONITORING -- do not chart) 1 each PRN DAILY PRN MC SEE COMMENTS; Start 07/26/19 at 10:45; Status UNV Info (PHARMACY MONITORING -- do not chart) 1 each PRN DAILY PRN MC SEE COMMENTS; Start 07/26/19 at 10:45; Status UNV Sodium Chloride 90 meq/Potassium Chloride 15 meq/ Magnesium Sulfate 12 meq/Calcium Gluconate 15 meq/ Multivitamins 10 ml/Chromium/ Copper/Manganese/ Seleni/Zn 0.5 ml/ Insulin Human Regular 25 unit/ Total Parenteral Nutrition/Amino Acids/Dextrose/ Fat Emulsion Intravenous 1,400 ml @ 58.333 mls/ hr TPN CONT IV Last administered on 07/26/19at 22:13; Start 07/26/19 at 22:00; Stop 07/27/19 at 21:59; Status DC Sodium Chloride 1,000 ml @ 1,000 mls/hr Q1H PRN IV hypotension; Start 07/27/19 at 07:50; Stop 07/27/19 at 13:49; Status DC Albumin Human 200 ml @ 200 mls/hr 1X ONCE IV ; Start 07/27/19 at 08:00; Stop 07/27/19 at 08:53; Status DC Diphenhydramine HCl (Benadryl) 25 mg 1X PRN PRN IV ITCHING; Start 07/27/19 at 08:00; Stop 07/28/19 at 07:59; Status DC Diphenhydramine HCl (Benadryl) 25 mg 1X PRN PRN IV ITCHING; Start 07/27/19 at 08:00; Stop 07/28/19 at 07:59; Status DC Info (PHARMACY MONITORING -- do not chart) 1 each PRN DAILY PRN MC SEE COMMENTS; Start 07/27/19 at 08:00; Stop 07/28/19 at 08:16; Status DC Albumin Human 50 ml @ 50 mls/hr 1X ONCE IV ; Start 07/27/19 at 08:53; Stop 07/27/19 at 08:56; Status DC Albumin Human 200 ml @ 50 mls/hr PRN 1X PRN IV HYPOTENSION Last administered on 08/02/19at 11:54; Start 07/27/19 at 09:00 Meropenem 500 mg/ Sodium Chloride 50 ml @ 100 mls/hr Q12H IV Last administered on 08/16/19at 10:45; Start 07/27/19 at 10:00; Stop 08/16/19 at 12:37; Status DC Sodium Chloride 90 meq/Magnesium Sulfate 12 meq/ Calcium Gluconate 15 meq/ Multivitamins 10 ml/Chromium/ Copper/Manganese/ Seleni/Zn 0.5 ml/ Insulin Human Regular 25 unit/ Total Parenteral Nutrition/Amino Acids/Dextrose/ Fat Emulsion Intravenous 1,400 ml @ 58.333 mls/ hr TPN CONT IV Last administered on 07/26at 21:41; Start 07/27/19 at 22:00; Stop 07/28/19 at 21:59; Status DC Sodium Chloride 1,000 ml @ 1,000 mls/hr Q1H PRN IV hypotension; Start 07/28/19 at 07:58; Stop 07/28/19 at 13:57; Status DC Albumin Human 200 ml @ 200 mls/hr 1X PRN PRN IV Hypotension Last administered on 07/28/19at 09:30; Start 07/28/19 at 08:00; Stop 07/28/19 at 13:59; Status DC Sodium Chloride 1,000 ml @ 400 mls/hr Q2H30M PRN IV PATENCY; Start 07/28/19 at 07:58; Stop 07/28/19 at 19:57; Status DC Info (PHARMACY MONITORING -- do not chart) 1 each PRN DAILY PRN MC SEE COMMENTS; Start 07/28/19 at 08:00; Status Cancel Info (PHARMACY MONITORING -- do not chart) 1 each PRN DAILY PRN MC SEE COMMENTS; Start 07/28/19 at 08:15; Status UNV Sodium Chloride 90 meq/Potassium Phosphate 5 mmol/ Magnesium Sulfate 12 meq/Calcium Gluconate 15 meq/ Multivitamins 10 ml/Chromium/ Copper/Manganese/ Seleni/Zn 0.5 ml/ Insulin Human Regular 30 unit/ Total Parenteral Nutrition/Amino Acids/Dextrose/ Fat Emulsion Intravenous 1,400 ml @ 58.333 mls/ hr TPN CONT IV Last administered on 07/28/19at 22:08; Start 07/28/19 at 22:00; Stop 07/29/19 at 21:59; Status DC Linezolid/Dextrose 300 ml @ 300 mls/hr Q12HR IV Last administered on 08/08/19at 20:40; Start 07/29/19 at 11:00; Stop 08/09/19 at 08:10; Status DC Sodium Chloride 90 meq/Potassium Phosphate 15 mmol/ Magnesium Sulfate 12 meq/Calcium Gluconate 15 meq/ Multivitamins 10 ml/Chromium/ Copper/Manganese/ Seleni/Zn 0.5 ml/ Insulin Human Regular 30 unit/ Total Parenteral Nutrition/Amino Acids/Dextrose/ Fat Emulsion Intravenous 1,400 ml @ 58.333 mls/ hr TPN CONT IV Last administered on 07/29/19at 21:49; Start 07/29/19 at 22:00; Stop 07/30/19 at 21:59; Status DC Sodium Chloride 90 meq/Potassium Phosphate 15 mmol/ Magnesium Sulfate 12 meq/Calcium Gluconate 15 meq/ Multivitamins 10 ml/Chromium/ Copper/Manganese/ Seleni/Zn 0.5 ml/ Insulin Human Regular 40 unit/ Total Parenteral Nutrition/Amino Acids/Dextrose/ Fat Emulsion Intravenous 1,400 ml @ 58.333 mls/ hr TPN CONT IV Last administered on 07/30/19at 21:21; Start 07/30/19 at 22:00; Stop 07/31/19 at 21:59; Status DC Sodium Chloride 1,000 ml @ 1,000 mls/hr Q1H PRN IV hypotension; Start 07/30/19 at 13:26; Stop 07/30/19 at 19:25; Status DC Albumin Human 200 ml @ 200 mls/hr 1X PRN PRN IV Hypotension Last administered on 07/30/19at 15:00; Start 07/30/19 at 13:30; Stop 07/30/19 at 19:29; Status DC Sodium Chloride (Normal Saline Flush) 10 ml 1X PRN PRN IV AP catheter pack; Start 07/30/19 at 13:30; Stop 07/31/19 at 13:29; Status DC Sodium Chloride (Normal Saline Flush) 10 ml 1X PRN PRN IV [employer] catheter pack; Start 07/30/19 at 13:30; Stop 07/31/19 at 13:29; Status DC Sodium Chloride 1,000 ml @ 400 mls/hr Q2H30M PRN IV PATENCY; Start 07/30/19 at 13:26; Stop 07/31/19 at 01:25; Status DC Info (PHARMACY MONITORING -- do not chart) 1 each PRN DAILY PRN MC SEE COMMENTS; Start 07/30/19 at 13:30; Stop 07/30/19 at 13:33; Status DC Info (PHARMACY MONITORING -- do not chart) 1 each PRN DAILY PRN MC SEE COMMENTS; Start 07/30/19 at 13:30; Stop 07/30/19 at 13:34; Status DC Sodium Chloride 90 meq/Potassium Phosphate 19 mmol/ Magnesium Sulfate 12 meq/Calcium Gluconate 15 meq/ Multivitamins 10 ml/Chromium/ Copper/Manganese/ Seleni/Zn 0.5 ml/ Insulin Human Regular 40 unit/ Total Parenteral Nutrition/Amino Acids/Dextrose/ Fat Emulsion Intravenous 1,400 ml @ 58.333 mls/ hr TPN CONT IV Last administered on 07/31/19at 21:54; Start 07/31/19 at 22:00; Stop 08/01/19 at 21:59; Status DC Sodium Chloride 1,000 ml @ 1,000 mls/hr Q1H PRN IV hypotension; Start 08/01/19 at 09:35; Stop 08/01/19 at 15:34; Status DC Albumin Human 200 ml @ 200 mls/hr 1X PRN PRN IV Hypotension; Start 08/01/19 at 09:45; Stop 08/01/19 at 15:44; Status DC Diphenhydramine HCl (Benadryl) 25 mg 1X PRN PRN IV ITCHING; Start 08/01/19 at 09:45; Stop 08/02/19 at 09:44; Status DC Diphenhydramine HCl (Benadryl) 25 mg 1X PRN PRN IV ITCHING; Start 08/01/19 at 09:45; Stop 08/02/19 at 09:44; Status DC Sodium Chloride 1,000 ml @ 400 mls/hr Q2H30M PRN IV PATENCY; Start 08/01/19 at 09:35; Stop 08/01/19 at 21:34; Status DC Info (PHARMACY MONITORING -- do not chart) 1 each PRN DAILY PRN MC SEE COMMENTS; Start 08/01/19 at 09:45; Status Cancel Sodium Chloride 100 meq/Potassium Phosphate 19 mmol/ Magnesium Sulfate 12 meq/Calcium Gluconate 15 meq/ Multivitamins 10 ml/Chromium/ Copper/Manganese/ Seleni/Zn 0.5 ml/ Insulin Human Regular 40 unit/ Potassium Chloride 20 meq/ Total Parenteral Nutrition/Amino Acids/Dextrose/ Fat Emulsion Intravenous 1,400 ml @ 58.333 mls/ hr TPN CONT IV Last administered on 08/01/19at 22:02; Start 08/01/19 at 22:00; Stop 08/02/19 at 21:59; Status DC Furosemide (Lasix) 40 mg 1X ONCE IVP Last administered on 08/01/19at 14:39; Start 08/01/19 at 14:30; Stop 08/01/19 at 14:31; Status DC Metronidazole 100 ml @ 100 mls/hr Q8HRS IV Last administered on 08/09/19at 06:0 4; Start 08/02/19 at 10:00; Stop 08/09/19 at 08:10; Status DC Sodium Chloride 1,000 ml @ 1,000 mls/hr Q1H PRN IV hypotension; Start 08/02/19 at 08:00; Stop 08/02/19 at 13:59; Status DC Albumin Human 200 ml @ 200 mls/hr 1X PRN PRN IV Hypotension; Start 08/02/19 at 08:00; Stop 08/02/19 at 13:59; Status DC Sodium Chloride 1,000 ml @ 400 mls/hr Q2H30M PRN IV PATENCY; Start 08/02/19 at 08:00; Stop 08/02/19 at 19:59; Status DC Info (PHARMACY MONITORING -- do not chart) 1 each PRN DAILY PRN MC SEE COMMENT S; Start 08/02/19 at 11:30; Status UNV Info (PHARMACY MONITORING -- do not chart) 1 each PRN DAILY PRN MC SEE COMMENTS; Start 08/02/19 at 11:30; Stop 08/04/19 at 12:13; Status DC Sodium Chloride 100 meq/Potassium Phosphate 19 mmol/ Magnesium Sulfate 12 meq/Calcium Gluconate 15 meq/ Multivitamins 10 ml/Chromium/ Copper/Manganese/ Seleni/Zn 0.5 ml/ Insulin Human Regular 40 unit/ Potassium Chloride 20 meq/ Total Parenteral Nutrition/Amino Acids/Dextrose/ Fat Emulsion Intravenous 1,400 ml @ 58.333 mls/ hr TPN CONT IV Last administered on 08/02/19at 21:52; Start 08/02/19 at 22:00; Stop 08/03/19 at 21:59; Status DC Sodium Chloride (Normal Saline Flush) 10 ml QSHIFT PRN IV AFTER MEDS AND BLOOD DRAWS; Start 08/02/19 at 15:00 Sodium Chloride (Normal Saline Flush) 10 ml PRN Q5MIN PRN IV AFTER MEDS AND BLOOD DRAWS; Start 08/02/19 at 15:00 Sodium Chloride (Normal Saline Flush) 20 ml PRN Q5MIN PRN IV AFTER MEDS AND BLOOD DRAWS; Start 08/02/19 at 15:00 Sodium Chloride 100 meq/Potassium Phosphate 19 mmol/ Magnesium Sulfate 12 meq/Calcium Gluconate 15 meq/ Multivitamins 10 ml/Chromium/ Copper/Manganese/ Seleni/Zn 0.5 ml/ Insulin Human Regular 40 unit/ Potassium Chloride 20 meq/ Total Parenteral Nutrition/Amino Acids/Dextrose/ Fat Emulsion Intravenous 1,400 ml @ 58.333 mls/ hr TPN CONT IV Last administered on 08/03/19at 21:20; Start 08/03/19 at 22:00; Stop 08/04/19 at 21:59; Status DC Lidocaine HCl (Buffered Lidocaine 1%) 3 ml STK-MED ONCE .ROUTE ; Start 08/03/19 at 13:16; Stop 08/03/19 at 13:16; Status DC Lidocaine HCl (Buffered Lidocaine 1%) 6 ml 1X ONCE INJ Last administered on 08/03/19at 13:45; Start 08/03/19 at 13:30; Stop 08/03/19 at 13:31; Status DC Albumin Human 100 ml @ 100 mls/hr 1X ONCE IV Last administered on 08/03/19at 15:41; Start 08/03/19 at 15:00; Stop 08/03/19 at 15:59; Status DC Albumin Human 50 ml @ 50 mls/hr 1X ONCE IV Last administered on 08/03/19at 15:00; Start 08/03/19 at 15:00; Stop 08/03/19 at 15:59; Status DC Info (PHARMACY MONITORING -- do not chart) 1 each PRN DAILY PRN MC SEE COMM ENTS; Start 08/04/19 at 11:30; Status Cancel Info (PHARMACY MONITORING -- do not chart) 1 each PRN DAILY PRN MC SEE COMMENTS; Start 08/04/19 at 11:30; Status UNV Sodium Chloride 100 meq/Potassium Phosphate 10 mmol/ Magnesium Sulfate 12 meq/Calcium Gluconate 15 meq/ Multivitamins 10 ml/Chromium/ Copper/Manganese/ Seleni/Zn 0.5 ml/ Insulin Human Regular 35 unit/ Potassium Chloride 20 meq/ Total Parenteral Nutrition/Amino Acids/Dextrose/ Fat Emulsion Intravenous 1,400 ml @ 58.333 mls/ hr TPN CONT IV Last administered on 08/04/19at 22:10; Start 08/04/19 at 22:00; Stop 08/05/19 at 21:59; Status DC Sodium Chloride 100 meq/Potassium Phosphate 5 mmol/ Magnesium Sulfate 12 meq/Calcium Gluconate 15 meq/ Multivitamins 10 ml/Chromium/ Copper/Manganese/ Seleni/Zn 0.5 ml/ Insulin Human Regular 35 unit/ Potassium Chloride 20 meq/ Total Parenteral Nutrition/Amino Acids/Dextrose/ Fat Emulsion Intravenous 1,400 ml @ 58.333 mls/ hr TPN CONT IV Last administered on 08/05/19at 22:59; Start 08/05/19 at 22:00; Stop 08/06/19 at 21:59; Status DC Sodium Chloride 1,000 ml @ 1,000 mls/hr Q1H PRN IV hypotension; Start 08/06/19 at 08:27; Stop 08/06/19 at 14:26; Status DC Albumin Human 200 ml @ 200 mls/hr 1X PRN PRN IV Hypotension Last administered on 08/06/19at 09:18; Start 08/06/19 at 08:30; Stop 08/06/19 at 14:29; Status DC Sodium Chloride 1,000 ml @ 400 mls/hr Q2H30M PRN IV PATENCY; Start 08/06/19 at 08:27; Stop 08/06/19 at 20:26; Status DC Info (PHARMACY MONITORING -- do not chart) 1 each PRN DAILY PRN MC SEE COMMENTS; Start 08/06/19 at 08:30; Status Cancel Info (PHARMACY MONITORING -- do not chart) 1 each PRN DAILY PRN MC SEE COMMENTS; Start 08/06/19 at 08:30; Stop 08/14/19 at 13:10; Status DC Sodium Chloride 100 meq/Potassium Chloride 40 meq/ Magnesium Sulfate 15 meq /Calcium Gluconate 15 meq/ Multivitamins 10 ml/Chromium/ Copper/Manganese/ Seleni/Zn 0.5 ml/ Insulin Human Regular 35 unit/ Total Parenteral Nutrition/Amino Acids/Dextrose/ Fat Emulsion Intravenous 1,400 ml @ 58.333 mls/ hr TPN CONT IV Last administered on 08/06/19at 22:00; Start 08/06/19 at 22:00; Stop 08/07/19 at 21:59; Status DC Potassium Chloride/Water 100 ml @ 100 mls/hr 1X ONCE IV Last administered on 08/06/19at 17:28; Start 08/06/19 at 14:45; Stop 08/06/19 at 15:44; Status DC Sodium Chloride 100 meq/Potassium Chloride 40 meq/ Magnesium Sulfate 15 meq/Calcium Gluconate 15 meq/ Multivitamins 10 ml/Chromium/ Copper/Manganese/ Seleni/Zn 0.5 ml/ Insulin Human Regular 35 unit/ Total Parenteral Nutrition/Amino Acids/Dextrose/ Fat Emulsion Intravenous 1,400 ml @ 58.333 mls/ hr TPN CONT IV Last administered on 08/07/19at 22:46; Start 08/07/19 at 22:00; Stop 08/08/19 at 21:59; Status DC Sodium Chloride 100 meq/Potassium Chloride 40 meq/ Magnesium Sulfate 20 meq/Calcium Gluconate 15 meq/ Multivitamins 10 ml/Chromium/ Copper/Manganese/ Seleni/Zn 0.5 ml/ Insulin Human Regular 35 unit/ Total Parenteral Nutrition/Amino Acids/Dextrose/ Fat Emulsion Intravenous 1,400 ml @ 58.333 mls/ hr TPN CONT IV Last administered on 08/08/19at 22:31; Start 08/08/19 at 22:00; Stop 08/09/19 at 21:59; Status DC Fentanyl Citrate (Fentanyl 2ml Vial) 50 mcg PRN Q2HR PRN IVP PAIN Last administered on 08/15/19at 13:32; Start 08/08/19 at 21:00; Stop 08/16/19 at 12:53; Status DC Fentanyl Citrate (Fentanyl 2ml Vial) 25 mcg PRN Q2HR PRN IVP PAIN; Start 08/08/19 at 21:00; Stop 08/16/19 at 12:54; Status DC Enoxaparin Sodium (Lovenox 100mg Syringe) 100 mg Q12HR SQ ; Start 08/09/19 at 21:00; Status UNV Amino Acids/ Glycerin/ Electrolytes 1,000 ml @ 75 mls/hr [id number] IV ; Start 08/08/19 at 21:15; Status UNV Sodium Chloride 1,000 ml @ 1,000 mls/hr Q1H PRN IV hypotension; Start 08/09/19 at 07:56; Stop 08/09/19 at 13:55; Status DC Albumin Human 200 ml @ 200 mls/hr 1X PRN PRN IV Hypotension Last administered on 08/09/19at 08:40; Start 08/09/19 at 08:00; Stop 08/09/19 at 13:59; Status DC Sodium Chloride 1,000 ml @ 400 mls/hr Q2H30M PRN IV PATENCY; Start 08/09/19 at 07:56; Stop 08/09/19 at 19:55; Status DC Info (PHARMACY MONITORING -- do not chart) 1 each PRN DAILY PRN MC SEE COMMENTS; Start 08/09/19 at 08:00; Status UNV Info (PHARMACY MONITORING -- do not chart) 1 each PRN DAILY PRN MC SEE COMMENTS; Start 08/09/19 at 08:00; Status UNV Daptomycin 430 mg/ Sodium Chloride 50 ml @ 100 mls/hr Q24H IV Last administered on 08/09/19at 12:35; Start 08/09/19 at 09:00; Stop 08/09/19 at 12:49; Status DC Sodium Chloride 100 meq/Potassium Chloride 40 meq/ Magnesium Sulfate 20 meq/Calcium Gluconate 15 meq/ Multivitamins 10 ml/Chromium/ Copper/Manganese/ Seleni/Zn 0.5 ml/ Insulin Human Regular 35 unit/ Total Parenteral Nutrition/Amino Acids/Dextrose/ Fat Emulsion Intravenous 1,400 ml @ 58.333 mls/ hr TPN CONT IV Last administered on 08/09/19at 21:26; Start 08/09/19 at 22:00; Stop 08/10/19 at 21:59; Status DC Daptomycin 430 mg/ Sodium Chloride 50 ml @ 100 mls/hr Q48H IV ; Start 08/11/19 at 09:00; Stop 08/10/19 at 11:55; Status DC Sodium Chloride 100 meq/Potassium Chloride 40 meq/ Magnesium Sulfate 20 meq/Calcium Gluconate 15 meq/ Multivitamins 10 ml/Chromium/ Copper/Manganese/ Seleni/Zn 0.5 ml/ Insulin Human Regular 35 unit/ Total Parenteral Nutrition/Amino Acids/Dextrose/ Fat Emulsion Intravenous 1,400 ml @ 58.333 mls/ hr TPN CONT IV Last administered on 08/10/19at 22:27; Start 08/10/19 at 22:00; Stop 08/11/19 at 21:59; Status DC Daptomycin 430 mg/ Sodium Chloride 50 ml @ 100 mls/hr Q24H IV Last administered on 08/12/19at 15:07; Start 08/10/19 at 13:00; Stop 08/13/19 at 13:15; Status DC Sodium Chloride 100 meq/Potassium Chloride 40 meq/ Magnesium Sulfate 20 meq/Calcium Gluconate 10 meq/ Multivitamins 10 ml/Chromium/ Copper/Manganese/ Seleni/Zn 0.5 ml/ Insulin Human Regular 35 unit/ Total Parenteral Nutrition/Amino Acids/Dextrose/ Fat Emulsion Intravenous 1,400 ml @ 58.333 mls/ hr TPN CONT IV Last administered on 08/12/19at 00:06; Start 08/11/19 at 22:00; Stop 08/12/19 at 21:59; Status DC Alteplase, Recombinant (Cathflo For Central Catheter Clearance) 1 mg 1X ONCE INT CAT Last administered on 08/12/19at 11:44; Start 08/12/19 at 10:45; Stop 08/12/19 at 10:46; Status DC Ondansetron HCl (Zofran) 4 mg PRN Q6HRS PRN IV NAUSEA/VOMITING; Start 08/15/19 at 07:00; Stop 08/16/19 at 06:59; Status DC Fentanyl Citrate (Fentanyl 2ml Vial) 25 mcg PRN Q5MIN PRN IV MILD PAIN 1-3; Start 08/15/19 at 07:00; Stop 08/16/19 at 06:59; Status DC Fentanyl Citrate (Fentanyl 2ml Vial) 50 mcg PRN Q5MIN PRN IV MODERATE TO SEVERE PAIN Last administered on 08/15/19at 10:17; Start 08/15/19 at 07:00; Stop 08/16/19 at 06:59; Status DC Ringer's Solution 1,000 ml @ 30 mls/hr Q24H IV ; Start 08/15/19 at 07:00; Stop 08/15/19 at 18:59; Status DC Lidocaine HCl (Xylocaine-Mpf 1% 2ml Vial) 2 ml PRN 1X PRN ID PRIOR TO IV START; Start 08/15/19 at 07:00; Stop 08/16/19 at 06:59; Status DC Prochlorperazine Edisylate (Compazine) 5 mg PACU PRN PRN IV NAUSEA, MRX1; Start 08/15/19 at 07:00; Stop 08/16/19 at 06:59; Status DC Sodium Acetate 50 meq/Potassium Acetate 55 meq/ Magnesium Sulfate 20 meq/Calcium Gluconate 10 meq/ Multivitamins 10 ml/Chromium/ Copper/Manganese/ Seleni/Zn 0.5 ml/ Insulin Human Regular 35 unit/ Total Parenteral Nutrition/Amino Acids/Dextrose/ Fat Emulsion Intravenous 1,400 ml @ 58.333 mls/ hr TPN CONT IV ; Start 08/12/19 at 22:00; Stop 08/12/19 at 14:15; Status DC Sodium Acetate 50 meq/Potassium Acetate 55 meq/ Magnesium Sulfate 20 meq/Calcium Gluconate 10 meq/ Multivitamins 10 ml/Chromium/ Copper/Manganese/ Seleni/Zn 0.5 ml/ Insulin Human Regular 35 unit/ Total Parenteral Nutrition/Amino Acids/Dextrose/ Fat Emulsion Intravenous 1,800 ml @ 75 mls/hr TPN CONT IV Last administered on 08/12/19at 22:38; Start 08/12/19 at 22:00; Stop 08/13/19 at 21:59; Status DC Sodium Chloride 1,000 ml @ 1,000 mls/hr Q1H PRN IV hypotension; Start 08/12/19 at 15:31; Stop 08/12/19 at 21:30; Status DC Diphenhydramine HCl (Benadryl) 25 mg 1X PRN PRN IV ITCHING; Start 08/12/19 at 1 5:45; Stop 08/13/19 at 15:44; Status DC Diphenhydramine HCl (Benadryl) 25 mg 1X PRN PRN IV ITCHING; Start 08/12/19 at 15:45; Stop 08/13/19 at 15:44; Status DC Sodium Chloride 1,000 ml @ 400 mls/hr Q2H30M PRN IV PATENCY; Start 08/12/19 at 15:31; Stop 08/13/19 at 03:30; Status DC Info (PHARMACY MONITORING -- do not chart) 1 each PRN DAILY PRN MC SEE COMMENTS; Start 08/12/19 at 15:45 Sodium Acetate 50 meq/Potassium Acetate 55 meq/ Magnesium Sulfate 20 meq/Calcium Gluconate 10 meq/ Multivitamins 10 ml/Chromium/ Copper/Manganese/ Seleni/Zn 0.5 ml/ Insulin Human Regular 35 unit/ Total Parenteral Nutrition/Amino Acids/Dextrose/ Fat Emulsion Intravenous 1,800 ml @ 75 mls/hr TPN CONT IV Last administered on 08/13/19at 22:03; Start 08/13/19 at 22:00; Stop 08/14/19 at 21:59; Status DC Daptomycin 430 mg/ Sodium Chloride 50 ml @ 100 mls/hr Q24H IV Last administered on 08/18/19at 13:00; Start 08/13/19 at 13:00; Stop 08/18/19 at 20:58; Status DC Heparin Sodium (Porcine) 1000 unit/Sodium Chloride 1,001 ml @ 1,001 mls/hr 1X ONCE IRR ; Start 08/15/19 at 06:00; Stop 08/15/19 at 06:59; Status DC Potassium Acetate 55 meq/Magnesium Sulfate 20 meq/ Calcium Gluconate 10 meq/ Multivitamins 10 ml/Chromium/ Copper/Manganese/ Seleni/Zn 0.5 ml/ Insulin Human Regular 35 unit/ Total Parenteral Nutrition/Amino Acids/Dextrose/ Fat Emulsion Intravenous 1,920 ml @ 80 mls/hr TPN CONT IV Last administered on 08/14/19at 22:10; Start 08/14/19 at 22:00; Stop 08/15/19 at 21:59; Status DC Dexamethasone Sodium Phosphate (Decadron) 4 mg STK-MED ONCE .ROUTE ; Start 08/15/19 at 10:56; Stop 08/15/19 at 10:57; Status DC Ondansetron HCl (Zofran) 4 mg STK-MED ONCE .ROUTE ; Start 08/15/19 at 10:56; Stop 08/15/19 at 10:57; Status DC Rocuronium [place] (Zemuron) 50 mg STK-MED ONCE .ROUTE ; Start 08/15/19 at 10:56; Stop 08/15/19 at 10:57; Status DC Fentanyl Citrate (Fentanyl 2ml Vial) 100 mcg STK-MED ONCE .ROUTE ; Start 08/15/19 at 10:56; Stop 08/15/19 at 10:57; Status DC Bupivacaine HCl/ Epinephrine Bitart (Sensorcain-Epi 0.5%-1:[id number] Mpf) 30 ml STK-MED ONCE .ROUTE Last administered on 08/15/19at 12:01; Start 08/15/19 at 10:58; Stop 08/15/19 at 10:58; Status DC Cellulose (Surgicel Hemostat 2x14) 1 each STK-MED ONCE .ROUTE ; Start 08/15/19 at 10:58; Stop 08/15/19 at 10:59; Status DC Iohexol (Omnipaque 300 Mg/ml) 50 ml STK-MED ONCE .ROUTE ; Start 08/15/19 at 10:58; Stop 08/15/19 at 10:59; Status DC Cellulose (Surgicel Hemostat 4x8) 1 each STK-MED ONCE .ROUTE ; Start 08/15/19 at 10:58; Stop 08/15/19 at 10:59; Status DC Bisacodyl (Dulcolax Supp) 10 mg STK-MED ONCE .ROUTE ; Start 08/15/19 at 10:59; Stop 08/15/19 at 10:59; Status DC Heparin Sodium (Porcine) 1000 unit/Sodium Chloride 1,001 ml @ 1,001 mls/hr 1X ONCE IRR ; Start 08/15/19 at 12:00; Stop 08/15/19 at 12:59; Status DC Propofol 20 ml @ As Directed STK-MED ONCE IV ; Start 08/15/19 at 11:05; Stop 08/15/19 at 11:05; Status DC Sevoflurane (Ultane) 90 ml STK-MED ONCE IH ; Start 08/15/19 at 11:05; Stop 08/15/19 at 11:05; Status DC Sevoflurane (Ultane) 60 ml STK-MED ONCE IH ; Start 08/15/19 at 12:26; Stop 08/15/19 at 12:27; Status DC Propofol 20 ml @ As Directed STK-MED ONCE IV ; Start 08/15/19 at 12:26; Stop 08/15/19 at 12:27; Status DC Phenylephrine HCl (PHENYLEPHRINE in 0.9% NACL PF) 1 mg STK-MED ONCE IV ; Start 08/15/19 at 12:34; Stop 08/15/19 at 12:34; Status DC Heparin Sodium (Porcine) (Heparin Sodium) 5,000 unit Q12HR SQ Last administered on 08/19/19at 21:41; Start 08/15/19 at 21:00 Sodium Chloride (Normal Saline Flush) 3 ml QSHIFT PRN IV AFTER MEDS AND BLOOD DRAWS; Start 08/15/19 at 13:45 Naloxone HCl (Narcan) 0.4 mg PRN Q2MIN PRN IV SEE INSTRUCTIONS; Start 08/15/19 at 13:45 Sodium Chloride 1,000 ml @ 25 mls/hr Q24H IV Last administered on 08/19/19at 12:35; Start 08/15/19 at 13:37 Naloxone HCl (Narcan) 0.4 mg PRN Q2MIN PRN IV SEE INSTRUCTIONS; Start 08/15/19 at 14:30; Status UNV Sodium Chloride 1,000 ml @ 25 mls/hr Q24H IV ; Start 08/15/19 at 14:30; Status UNV Hydromorphone HCl 30 ml @ 0 mls/hr CONT PRN PRN IV PER PROTOCOL Last administered on 08/19/19at 16:15; Start 08/15/19 at 14:30 Potassium Acetate 55 meq/Magnesium Sulfate 20 meq/ Calcium Gluconate 10 meq/ Multivitamins 10 ml/Chromium/ Copper/Manganese/ Seleni/Zn 0.5 ml/ Insulin Human Regular 35 unit/ Total Parenteral Nutrition/Amino Acids/Dextrose/ Fat Emulsion Intravenous 1,920 ml @ 80 mls/hr TPN CONT IV Last administered on 08/15/19at 22:01; Start 08/15/19 at 22:00; Stop 08/16/19 at 21:59; Status DC Bumetanide (Bumex) 2 mg [id number] IV Last administered on 08/19/19at 13:50; Start 08/16/19 at 14:00 Meropenem 1 gm/ Sodium Chloride 100 ml @ 200 mls/hr Q8HRS IV Last administered on 08/20/19at 05:42; Start 08/16/19 at 14:00 Potassium Acetate 55 meq/Magnesium Sulfate 20 meq/ Calcium Gluconate 10 meq/ Multivitamins 10 ml/Chromium/ Copper/Manganese/ Seleni/Zn 0.5 ml/ Insulin Human Regular 35 unit/ Total Parenteral Nutrition/Amino Acids/Dextrose/ Fat Emulsion Intravenous 1,920 ml @ 80 mls/hr TPN CONT IV Last administered on 08/16/19at 22:02; Start 08/16/19 at 22:00; Stop 08/17/19 at 21:59; Status DC Hydromorphone HCl (Dilaudid Standard PATTERN MAKER PROGRAMER) 12 mg STK-MED ONCE IV ; Start 08/15/19 at 14:35; Stop 08/16/19 at 13:53; Status DC Artificial Tears (Artificial Tears) 1 drop PRN Q15MIN PRN OU DRY EYE Last administered on 08/19/19at 12:34; Start 08/17/19 at 05:30 Hydromorphone HCl (Dilaudid Standard PATTERN MAKER PROGRAMER) 12 mg STK-MED ONCE IV ; Start 08/16/19 at 12:05; Stop 08/17/19 at 09:15; Status DC Potassium Acetate 65 meq/Magnesium Sulfate 20 meq/ Calcium Gluconate 10 meq/ Multivitamins 10 ml/Chromium/ Copper/Manganese/ Seleni/Zn 0.5 ml/ Insulin Human Regular 30 unit/ Total Parenteral Nutrition/Amino Acids/Dextrose/ Fat Emulsion Intravenous 1,920 ml @ 80 mls/hr TPN CONT IV Last administered on 08/17/19at 22:22; Start 08/17/19 at 22:00; Stop 08/18/19 at 21:59; Status DC Cyclobenzaprine HCl (Flexeril) 10 mg PRN Q6HRS PRN PO MUSCLE SPASMS; Start 08/18/19 at 10:45 Potassium Acetate 55 meq/Magnesium Sulfate 20 meq/ Calcium Gluconate 10 meq/ Multivitamins 10 ml/Chromium/ Copper/Manganese/ Seleni/Zn 0.5 ml/ Insulin Human Regular 30 unit/ Total Parenteral Nutrition/Amino Acids/Dextrose/ Fat Emulsion Intravenous 1,920 ml @ 80 mls/hr TPN CONT IV Last administered on 08/19/19at 01:00; Start 08/18/19 at 22:00; Stop 08/19/19 at 21:59; Status DC Magnesium Sulfate 50 ml @ 25 mls/hr 1X ONCE IV Last administered on 08/18/19at 17:18; Start 08/18/19 at 12:45; Stop 08/18/19 at 14:44; Status DC Potassium Chloride/Water 100 ml @ 100 mls/hr 1X ONCE IV Last administered on 08/19/19at 11:27; Start 08/19/19 at 12:00; Stop 08/19/19 at 12:59; Status DC Hydromorphone HCl (Dilaudid Standard PATTERN MAKER PROGRAMER) 12 mg STK-MED ONCE IV ; Start 08/17/19 at 10:50; Stop 08/19/19 at 11:02; Status DC Hydromorphone HCl (Dilaudid Standard PATTERN MAKER PROGRAMER) 12 mg STK-MED ONCE IV ; Start 08/18/19 at 13:47; Stop 08/19/19 at 11:03; Status DC Potassium Acetate 30 meq/Magnesium Sulfate 20 meq/ Calcium Gluconate 10 meq/ Multivitamins 10 ml/Chromium/ Copper/Manganese/ Seleni/Zn 0.5 ml/ Insulin Human Regular 30 unit/ Potassium Chloride 30 meq/ Total Parenteral Nutrition/Amino Acids/Dextrose/ Fat Emulsion Intravenous 1,920 ml @ 80 mls/hr TPN CONT IV Last administered on 08/19/19at 22:34; Start 08/19/19 at 22:00; Stop 08/20/19 at 21:59 Potassium Chloride/Water 100 ml @ 100 mls/hr Q1H IV Last administered on 08/20/19at 09:59; Start 08/20/19 at 07:00; Stop 08/20/19 at 10:59 Active Scripts Active Reported Bisoprolol Fumarate 5 Mg Tablet 10 Mg PO DAILY Vitals/I & O Vital Sign - Last 24 Hours 08/19/19 08/19/19 08/19/19 08/19/19 11:00 11:33 12:00 12:00 Temp 99.5 99.5 Pulse 156 120 Resp 27 26 B/P (MAP) 188/111 (136) 129/62 (84) Pulse Ox 96 99 O2 Delivery Tracheal Collar Tracheal Collar Tracheal Collar Trach Collar 08/19/19 08/19/19 08/19/19 08/19/19 12:55 13:53 15:00 15:46 Pulse 110 105 115 Resp 20 25 26 B/P (MAP) 128/52 (77) 146/69 (94) 128/67 (87) Pulse Ox 97 99 99 O2 Delivery Tracheal Collar Tracheal Collar Tracheal Collar Trach Collar 08/19/19 08/19/19 08/19/19 08/19/19 16:00 16:15 16:50 17:00 Temp 98.9 98.9 Pulse 113 116 Resp 28 26 31 29 B/P (MAP) 135/76 (95) 140/92 (108) Pulse Ox 99 97 99 98 O2 Delivery Tracheal Collar Tracheal Collar Tracheal Collar Tracheal Collar 08/19/19 08/19/19 08/19/19 08/19/19 18:00 19:00 20:00 20:00 Temp 100.4 100.4 Pulse 120 121 109 Resp 30 18 28 B/P (MAP) 152/76 (101) 155/81 (105) 198/91 (126) Pulse Ox 97 98 99 O2 Delivery Tracheal Collar Tracheal Collar Trach Collar Tracheal Collar O2 Flow Rate 10.0 08/19/19 08/19/19 08/19/19 08/19/19 20:18 21:00 22:00 23:00 Pulse 117 93 86 Resp 26 22 28 B/P (MAP) 162/74 (103) 110/58 (75) 90/49 (63) Pulse Ox 99 95 98 99 O2 Delivery Tracheal Collar Tracheal Collar Ventilator Ventilator O2 Flow Rate 10.0 08/19/19 08/20/19 08/20/19 08/20/19 23:00 00:00 00:00 00:15 Temp 99.4 99.4 Pulse 103 Resp 27 B/P (MAP) 109/78 (88) Pulse Ox 97 99 97 O2 Delivery Ventilator Mechanical Ventilator Ventilator Ventilator O2 Flow Rate 08/20/19 08/20/19 08/20/19 08/20/19 01:00 02:00 02:21 03:00 Pulse 97 104 96 Resp 24 25 25 B/P (MAP) 116/47 (70) 110/67 (81) 110/63 (79) Pulse Ox 98 97 97 97 O2 Delivery Ventilator Ventilator Ventilator Ventilator 08/20/19 08/20/19 08/20/19 08/20/19 04:00 04:00 04:36 05:00 Temp 99.6 99.6 Pulse 98 87 Resp 25 25 B/P (MAP) 100/67 (78) 97/56 (70) Pulse Ox 98 97 97 O2 Delivery Ventilator Mechanical Ventilator Ventilator Ventilator 08/20/19 08/20/19 06:00 07:33 Pulse 86 Resp 25 B/P (MAP) 104/52 (69) Pulse Ox 97 97 O2 Delivery Ventilator Ventilator Intake and Output 08/19/19 08/19/19 08/20/19 15:00 23:00 07:00 Intake Total 100 ml 1551.5 ml 1475.5 ml Output Total 1525 ml 1645 ml 1000 ml Balance -1425 ml -93.5 ml 475.5 ml Hemodynamically unstable?: No Is patient in severe pain?: No Is NPO status required?: No DAVIN LANDEROS MD August 20, 2019 10:06
[2019-08-20] MEDS: HEPARIN for SUB-Q USE 5,000 UNIT/ML VIAL. SQ SCH ×2 (10:09→21:54)
[2019-08-20] MEDS ORDERED: MAGNESIUM SULFATE 2GM 50 ML IV ONE (10:30)
[2019-08-20] MEDS: TPN PER PHARMACY MC PRN (11:09)
--- NOTE | 2019-08-20 11:10 | NUR ---
Pharmacy TPN Dosing Note S: SCOTT AVILA is a 48 year old F Currently receiving Central Continuous TPN started 07/06/19 B:Pertinent PMH: Necrotizing pancreatitis Height: 5 feet, 8 inches Weight: 106.1 kg Current diet: NPO LABS: Sodium: 154 Potassium: 2.9 Chloride: 111 Calcium: 8.6 Corrected Calcium: 9.64 Magnesium: 1.8 CO2: 34 SCr: 1 Glucose: 149-153 Albumin: 2.7 AST: 21 ALT: 11 TPN FORMULA: TPN TYPE: Central Continuous AMINO ACIDS: 90 gm DEXTROSE: 225 gm LIPIDS: 30 gm POTASSIUM CHLORIDE: 75 mEq MAGNESIUM: 20 mEq CALCIUM: 10 mEq INSULIN: 30 units MULTIPLE VITAMIN: 10 ml TRACE ELEMENTS: 0.5 ml TPN PLAN: -Change KAC to KCl - increase to 75 mEq/day for low potassium. Receiving IVPB replacement per primary. -Serum Na still elevated, hesitant to increase rate further due to pt requiring IV Bumex due to anasarca with 3rd spacing. -BMP tomorrow. R: Continue TPN @ current rate and with above formula. Will monitor electrolytes, glucose, and tolerance to TPN. SHARON [facility], 08/20/19 111
--- NOTE | 2019-08-20 11:48 | PDOC ---
Infectious Disease Note Subjective: Subjective Pt feels better Asking for water Fever pattern improving on trach with vent Still has some abdominal discomfort Vital Signs: Vital Signs Vital Signs Date Time Temp Pulse Resp B/P (MAP) Pulse Ox O2 Delivery O2 Flow Rate FiO2 08/20/19 10:00 136 32 163/76 (105) 100 Tracheal Collar 08/20/19 08:00 99.9 99.9 08/20/19 00:00 Physical Exam: PHYSICAL EXAM GENERAL: Propped up in bed, sedated weak appearing HEENT: Pupils equal, + NGT, oral cavity dry NECK: Trach/vent LUNGS: rhonchi HEART: S1, S2, regular ABDOMEN: Distended, hypoactive BS, drain placement (08/14 ) : Lind (08/01) EXTREMITIES: Generalized edema, no cyanosis, SCDs bilaterally DERMATOLOGIC: Warm and dry. No generalized rash. CENTRAL NERVOUS SYSTEM: Extremely weak, nods to few simple questions PICC line in place August 18, 2019 clean HDC has been removed LIJ removed Medications: Inpatient Meds: Current Medications Medications (Trade) Dose Ordered Sig/Yvon Start Time Stop Time Status Last Admin Dose Admin Acetaminophen (Tylenol Supp) 650 mg PRN Q6HRS PRN 07/12/19 10:30 08/15/19 00:32 650 MG Acetaminophen (Tylenol) 650 mg PRN Q6HRS PRN 07/09/19 03:36 08/04/19 19:56 650 MG Albumin Human 200 ml @ 200 mls/hr 1X PRN PRN 08/09/19 08:00 08/09/19 13:59 DC 08/09/19 08:40 200 MLS/HR Albuterol Sulfate (Ventolin Neb Soln) 2.5 mg 1X ONCE 07/05/19 22:30 07/05/19 22:31 DC 07/06/19 00:56 2.5 MG Alteplase, Recombinant (Cathflo For Central Catheter Clearance) 1 mg 1X ONCE 08/12/19 10:45 08/12/19 10:46 DC 08/12/19 11:44 1 MG Amino Acids/ Glycerin/ Electrolytes 1,000 ml @ 75 mls/hr [id number] 08/08/19 21:15 UNV Artificial Tears (Artificial Tears) 1 drop PRN Q15MIN PRN 4/29/20 05:30 08/19/19 12:34 1 DROP Atenolol (Tenormin) 100 mg DAILY 07/05/19 09:00 07/04/19 20:08 DC Atropine Sulfate (ATROPINE 0.5mg SYRINGE) 0.5 mg PRN Q5MIN PRN 07/21/19 08:15 Benzocaine (Hurricaine One) 1 spray 1X ONCE 07/08/19 14:30 07/08/19 14:31 DC 07/08/19 16:38 1 SPRAY Bisacodyl (Dulcolax Supp) 10 mg STK-MED ONCE 08/15/19 10:59 08/15/19 10:59 DC Bumetanide (Bumex) 2 mg [id number] 08/16/19 14:00 08/19/19 13:50 2 MG Bupivacaine HCl/ Epinephrine Bitart (Sensorcain-Epi 0.5%-1:248307 Mpf) 30 ml STK-MED ONCE 08/15/19 10:58 08/15/19 10:58 DC 08/15/19 12:01 7 ML Calcium Carbonate/ Glycine (Tums) 500 mg PRN [id number] PRN 07/06/19 17:45 Calcium Chloride 1000 mg/Sodium Chloride 110 ml @ 220 mls/hr 1X ONCE 07/05/19 22:30 07/05/19 22:59 DC 07/05/19 22:11 220 MLS/HR Calcium Chloride 3000 mg/Sodium Chloride 1,030 ml @ 50 mls/hr [id number] 07/07/19 08:00 07/09/19 15:23 DC 07/09/19 02:17 50 MLS/HR Calcium Gluconate (Calcium Gluconate) 2,000 mg 1X ONCE 07/07/19 02:15 07/07/19 02:16 DC 07/07/19 02:19 2,000 MG Calcium Gluconate 1000 mg/Sodium Chloride 110 ml @ 220 mls/hr 1X ONCE 07/06/19 03:30 07/06/19 03:59 DC 07/06/19 03:21 220 MLS/HR Calcium Gluconate 2000 mg/Sodium Chloride 120 ml @ 220 mls/hr 1X ONCE 07/06/19 07:30 07/06/19 08:02 DC 07/06/19 09:05 220 MLS/HR Cefepime HCl (Maxipime) 2 gm Q12HR 07/13/19 09:00 07/27/19 09:58 DC 07/26/19 20:56 2 GM Cellulose (Surgicel Fibrillar 1x2) 1 each STK-MED ONCE 07/25/19 11:00 07/25/19 11:01 DC Cellulose (Surgicel Hemostat 2x14) 1 each STK-MED ONCE 08/15/19 10:58 08/15/19 10:59 DC Cellulose (Surgicel Hemostat 4x8) 1 each STK-MED ONCE 08/15/19 10:58 08/15/19 10:59 DC Cyclobenzaprine HCl (Flexeril) 10 mg PRN Q6HRS PRN 08/18/19 10:45 Daptomycin 430 mg/ Sodium Chloride 50 ml @ 100 mls/hr Q24H 08/13/19 13:00 08/18/19 20:58 DC 08/18/19 13:00 100 MLS/HR Daptomycin 500 mg/ Sodium Chloride 50 ml @ 100 mls/hr Q48H 07/13/19 08:30 07/29/19 10:07 DC 07/29/19 09:57 100 MLS/HR Dexamethasone Sodium Phosphate (Decadron) 4 mg STK-MED ONCE 08/15/19 10:56 08/15/19 10:57 DC Dexmedetomidine HCl 400 mcg/ Sodium Chloride 100 ml @ 0 mls/hr CONT PRN 07/21/19 08:15 08/20/19 10:10 16.7 MLS/HR Dextrose (Dextrose 50%-Water Syringe) 12.5 gm PRN Q15MIN PRN 07/04/19 09:30 Digoxin (Lanoxin) 125 mcg 1X ONCE 07/07/19 18:00 07/07/19 18:01 DC 07/07/19 17:10 125 MCG Diphenhydramine HCl (Benadryl) 25 mg 1X PRN PRN 08/12/19 15:45 08/13/19 15:44 DC Enoxaparin Sodium (Lovenox 100mg Syringe) 100 mg Q12HR 08/09/19 21:00 UNV Etomidate (Amidate) 8 mg 1X ONCE 07/11/19 08:30 07/11/19 08:31 DC 3/23/20 08:33 8 MG Fentanyl Citrate (Fentanyl 2ml Vial) 100 mcg STK-MED ONCE 08/15/19 10:56 08/15/19 10:57 DC Furosemide (Lasix) 40 mg 1X ONCE 08/01/19 14:30 08/01/19 14:31 DC 08/01/19 14:39 40 MG Heparin Sodium (Porcine) (Hep Lock Adult) 500 unit STK-MED ONCE 07/26/19 09:29 07/26/19 09:30 DC Heparin Sodium (Porcine) (Heparin Sodium) 5,000 unit Q12HR 08/15/19 21:00 08/20/19 10:09 5,000 UNIT Heparin Sodium (Porcine) 1000 unit/Sodium Chloride 1,001 ml @ 1,001 mls/hr 1X ONCE 08/15/19 12:00 08/15/19 12:59 DC Hydromorphone HCl (Dilaudid Standard PLANS EXAMINER) 12 mg STK-MED ONCE 08/18/19 13:47 08/19/19 11:03 DC Hydromorphone HCl (Dilaudid) 1 mg PRN Q3HRS PRN 07/05/19 12:00 07/19/19 00:25 DC 07/11/19 05:13 1 MG Info (CONTRAST GIVEN -- Rx MONITORING) 1 each PRN DAILY PRN 07/18/19 11:45 07/20/19 11:44 DC Info (Icu Electrolyte Protocol) 1 ea CONT PRN PRN 07/17/19 13:15 Info (PHARMACY MONITORING -- do not chart) 1 each PRN DAILY PRN 08/12/19 15:45 Info (Tpn Per Pharmacy) 1 each PRN DAILY PRN 07/06/19 12:30 UNV Insulin Human Lispro (HumaLOG) 0-9 UNITS Q6HRS 07/04/19 09:30 08/18/19 17:29 4 UNITS Insulin Human Regular (HumuLIN R VIAL) 5 unit 1X ONCE 07/05/19 22:30 07/05/19 22:31 DC 07/05/19 22:14 5 UNIT Iohexol (Omnipaque 240 Mg/ml) 30 ml 1X ONCE 07/18/19 11:30 07/18/19 11:33 DC 07/18/19 11:30 30 ML Iohexol (Omnipaque 300 Mg/ml) 50 ml STK-MED ONCE 08/15/19 10:58 08/15/19 10:59 DC Iohexol (Omnipaque 350 Mg/ml) 90 ml 1X ONCE 07/04/19 03:30 07/04/19 03:31 DC 07/04/19 03:25 90 ML Ketorolac Tromethamine (Toradol 30mg Vial) 30 mg 1X ONCE 07/04/19 03:00 07/04/19 03:01 DC 07/04/19 02:54 30 MG Lidocaine HCl (Buffered Lidocaine 1%) 6 ml 1X ONCE 08/03/19 13:30 08/03/19 13:31 DC 08/03/19 13:45 9 ML Lidocaine HCl (Glydo (Lidocaine) Jelly) 1 ramu 1X ONCE 07/08/19 14:30 07/08/19 14:31 DC 07/08/19 16:38 1 RAMU Lidocaine HCl (Xylocaine-Mpf 1% 2ml Vial) 2 ml PRN 1X PRN 08/15/19 07:00 08/16/19 06:59 DC Linezolid/Dextrose 300 ml @ 300 mls/hr Q12HR 07/29/19 11:00 08/09/19 08:10 DC 08/08/19 20:40 300 MLS/HR Lorazepam (Ativan Inj) 1 mg PRN Q4HRS PRN 07/07/19 09:00 08/05/19 09:19 DC 08/05/19 03:51 1 MG Magnesium Sulfate 50 ml @ 25 mls/hr 1X ONCE 08/20/19 10:30 08/20/19 12:29 08/20/19 10:34 25 MLS/HR Meropenem 1 gm/ Sodium Chloride 100 ml @ 200 mls/hr Q8HRS 08/16/19 14:00 08/20/19 05:42 200 MLS/HR Meropenem 500 mg/ Sodium Chloride 50 ml @ 100 mls/hr Q12H 07/27/19 10:00 08/16/19 12:37 DC 08/16/19 10:45 100 MLS/HR Metoprolol Tartrate (Lopressor Vial) 5 mg Q6HRS 07/05/19 10:15 07/16/19 08:48 DC 07/14/19 00:12 5 MG Metronidazole 100 ml @ 100 mls/hr Q8HRS 08/02/19 10:00 08/09/19 08:10 DC 08/09/19 06:04 100 MLS/HR Micafungin Sodium 100 mg/Dextrose 100 ml @ 100 mls/hr Q24H 07/11/19 09:00 08/18/19 20:58 DC 08/18/19 08:18 100 MLS/HR Midazolam HCl (Versed) 5 mg 1X ONCE 07/11/19 08:30 07/11/19 08:31 DC Midazolam HCl 100 mg/Sodium Chloride 100 ml @ 7 mls/hr CONT PRN 07/16/19 16:00 07/27/19 15:35 7 MLS/HR Midazolam HCl 50 mg/Sodium Chloride 50 ml @ 0 mls/hr CONT PRN 07/11/19 08:15 07/16/19 15:59 DC 07/14/19 22:39 7 MLS/HR Morphine Sulfate (Morphine Sulfate) 2 mg PRN Q2HR PRN 07/04/19 05:00 07/05/19 14:15 DC 07/05/19 12:26 2 MG Multi-Ingred Cream/Lotion/Oil/ Oint (Artificial Tears Eye Ointment) 1 ramu PRN Q1HR PRN 07/13/19 17:30 08/01/19 08:19 1 RAMU Naloxone HCl (Narcan) 0.4 mg PRN Q2MIN PRN 08/15/19 14:30 UNV Norepinephrine Bitartrate 8 mg/ Dextrose 258 ml @ 17.299 mls/ hr CONT PRN 07/05/19 15:30 08/05/19 09:19 DC 08/02/19 12:48 20.9 MLS/HR Ondansetron HCl (Zofran) 4 mg STK-MED ONCE 08/15/19 10:56 08/15/19 10:57 DC Pantoprazole Sodium (PROTONIX VIAL for IV PUSH) 40 mg DAILYAC 07/04/19 11:30 08/20/19 08:20 40 MG Phenylephrine HCl (PHENYLEPHRINE in 0.9% NACL PF) 1 mg STK-MED ONCE 08/15/19 12:34 08/15/19 12:34 DC Piperacillin Sod/ Tazobactam Sod 4.5 gm/Sodium Chloride 100 ml @ 200 mls/hr 1X ONCE 07/04/19 06:00 07/04/19 06:29 DC 07/04/19 05:44 200 MLS/HR Potassium Chloride 15 meq/ Bicarbonate Dialysis Soln w/ out KCl 5,007.5 ml @ 1,000 mls/ hr Q5H1M 07/17/19 20:00 07/21/19 13:08 DC 07/20/19 18:14 1,000 MLS/HR Potassium Chloride 20 meq/ Bicarbonate Dialysis Soln w/ out KCl 5,010 ml @ 1,000 mls/hr Q5H1M 07/13/19 16:00 07/17/19 19:59 DC 07/17/19 14:54 1,000 MLS/HR Potassium Chloride 75 meq/ Magnesium Sulfate 20 meq/Calcium Gluconate 10 meq/ Multivitamins 10 ml/Chromium/ Copper/Manganese/ Seleni/Zn 0.5 ml/ Insulin Human Regular 30 unit/ Total Parenteral Nutrition/Amino Acids/Dextrose/ Fat Emulsion Intravenous 1,920 ml @ 80 mls/hr TPN CONT 08/20/19 22:00 08/21/19 21:59 Potassium Chloride/Water 100 ml @ 100 mls/hr Q1H 08/20/19 07:00 08/20/19 10:59 DC 08/20/19 09:59 100 MLS/HR Potassium Phosphate 20 mmol/ Sodium Chloride 106.6667 ml @ 51.667 m... 1X ONCE 07/13/19 13:00 07/13/19 15:03 DC 07/13/19 12:51 51.667 MLS/HR Potassium Acetate 30 meq/Magnesium Sulfate 20 meq/ Calcium Gluconate 10 meq/ Multivitamins 10 ml/Chromium/ Copper/Manganese/ Seleni/Zn 0.5 ml/ Insulin Human Regular 30 unit/ Potassium Chloride 30 meq/ Total Parenteral Nutrition/Amino Acids/Dextrose/ Fat Emulsion Intravenous 1,920 ml @ 80 mls/hr TPN CONT 08/19/19 22:00 08/20/19 21:59 08/19/19 22:34 80 MLS/HR Potassium Acetate 55 meq/Magnesium Sulfate 20 meq/ Calcium Gluconate 10 meq/ Multivitamins 10 ml/Chromium/ Copper/Manganese/ Seleni/Zn 0.5 ml/ Insulin Human Regular 30 unit/ Total Parenteral Nutrition/Amino Acids/Dextrose/ Fat Emulsion Intravenous 1,920 ml @ 80 mls/hr TPN CONT 08/18/19 22:00 08/19/19 21:59 DC 08/19/19 01:00 80 MLS/HR Potassium Acetate 55 meq/Magnesium Sulfate 20 meq/ Calcium Gluconate 10 meq/ Multivitamins 10 ml/Chromium/ Copper/Manganese/ Seleni/Zn 0.5 ml/ Insulin Human Regular 35 unit/ Total Parenteral Nutrition/Amino Acids/Dextrose/ Fat Emulsion Intravenous 1,920 ml @ 80 mls/hr TPN CONT 08/16/19 22:00 08/17/19 21:59 DC 08/16/19 22:02 80 MLS/HR Potassium Acetate 65 meq/Magnesium Sulfate 20 meq/ Calcium Gluconate 10 meq/ Multivitamins 10 ml/Chromium/ Copper/Manganese/ Seleni/Zn 0.5 ml/ Insulin Human Regular 30 unit/ Total Parenteral Nutrition/Amino Acids/Dextrose/ Fat Emulsion Intravenous 1,920 ml @ 80 mls/hr TPN CONT 08/17/19 22:00 08/18/19 21:59 DC 08/17/19 22:22 80 MLS/HR Prochlorperazine Edisylate (Compazine) 5 mg PACU PRN PRN 08/15/19 07:00 08/16/19 06:59 DC Propofol 20 ml @ As Directed STK-MED ONCE 08/15/19 12:26 08/15/19 12:27 DC Ringer's Solution 1,000 ml @ 30 mls/hr Q24H 08/15/19 07:00 08/15/19 18:59 DC Rocuronium [place] (Zemuron) 50 mg STK-MED ONCE 08/15/19 10:56 08/15/19 10:57 DC Sevoflurane (Ultane) 60 ml STK-MED ONCE 08/15/19 12:26 08/15/19 12:27 DC Sodium Bicarbonate 50 meq/Sodium Chloride 1,050 ml @ 75 mls/hr Q14H 07/06/19 07:30 07/11/19 10:28 DC 07/10/19 21:10 75 MLS/HR Sodium Acetate 50 meq/Potassium Acetate 55 meq/ Magnesium Sulfate 20 meq/Calcium Gluconate 10 meq/ Multivitamins 10 ml/Chromium/ Copper/Manganese/ Seleni/Zn 0.5 ml/ Insulin Human Regular 35 unit/ Total Parenteral Nutrition/Amino Acids/Dextrose/ Fat Emulsion Intravenous 1,800 ml @ 75 mls/hr TPN CONT 08/13/19 22:00 08/14/19 21:59 DC 08/13/19 22:03 75 MLS/HR Sodium Chloride 1,000 ml @ 25 mls/hr Q24H 08/15/19 14:30 UNV Sodium Chloride (Normal Saline Flush) 3 ml QSHIFT PRN 08/15/19 13:45 Sodium Chloride 90 meq/Calcium Gluconate 10 meq/ Multivitamins 10 ml/Chromium/ Copper/Manganese/ Seleni/Zn 0.5 ml/ Total Parenteral Nutrition/Amino Acids/Dextrose/ Fat Emulsion Intravenous 1,512 ml @ 63 mls/hr TPN CONT 07/06/19 22:00 07/07/19 21:59 DC 07/06/19 22:06 63 MLS/HR Sodium Chloride 90 meq/Calcium Gluconate 10 meq/ Multivitamins 10 ml/Chromium/ Copper/Manganese/ Seleni/Zn 1 ml/ Total Parenteral Nutrition/Amino Acids/Dextrose/ Fat Emulsion Intravenous 55.005 ml @ 2.292 mls/hr TPN CONT 07/06/19 22:00 07/06/19 12:33 DC Sodium Chloride 90 meq/Magnesium Sulfate 10 meq/ Calcium Gluconate 20 meq/ Multivitamins 10 ml/Chromium/ Copper/Manganese/ Seleni/Zn 0.5 ml/ Total Parenteral Nutrition/Amino Acids/Dextrose/ Fat Emulsion Intravenous 1,512 ml @ 63 mls/hr TPN CONT 07/07/19 22:00 07/08/19 21:59 DC 07/07/19 22:25 63 MLS/HR Sodium Chloride 90 meq/Magnesium Sulfate 12 meq/ Calcium Gluconate 15 meq/ Multivitamins 10 ml/Chromium/ Copper/Manganese/ Seleni/Zn 0.5 ml/ Insulin Human Regular 25 unit/ Total Parenteral Nutrition/Amino Acids/Dextrose/ Fat Emulsion Intravenous 1,400 ml @ 58.333 mls/ hr TPN CONT 07/27/19 22:00 07/28/19 21:59 DC 07/27/19 21:41 58.333 MLS/HR Sodium Chloride 90 meq/Potassium Chloride 15 meq/ Magnesium Sulfate 12 meq/Calcium Gluconate 15 meq/ Multivitamins 10 ml/Chromium/ Copper/Manganese/ Seleni/Zn 0.5 ml/ Insulin Human Regular 25 unit/ Total Parenteral Nutrition/Amino Acids/Dextrose/ Fat Emulsion Intravenous 1,400 ml @ 58.333 mls/ hr TPN CONT 07/26/19 22:00 07/27/19 21:59 DC 07/26/19 22:13 58.333 MLS/HR Sodium Chloride 90 meq/Potassium Chloride 15 meq/ Potassium Phosphate 10 mmol/ Magnesium Sulfate 8 meq/Calcium Gluconate 15 meq/ Multivitamins 10 ml/Chromium/ Copper/Manganese/ Seleni/Zn 0.5 ml/ Insulin Human Regular 25 unit/ Total Parenteral Nutrition/Amino Acids/Dextrose/ Fat Emulsion Intravenous 1,400 ml @ 58.333 mls/ hr TPN CONT 07/24/19 22:00 07/25/19 21:59 DC 07/24/19 21:20 58.333 MLS/HR Sodium Chloride 90 meq/Potassium Chloride 15 meq/ Potassium Phosphate 10 mmol/ Magnesium Sulfate 10 meq/Calcium Gluconate 20 meq/ Multivitamins 10 ml/Chromium/ Copper/Manganese/ Seleni/Zn 0.5 ml/ Total Parenteral Nutrition/Amino Acids/Dextrose/ Fat Emulsion Intravenous 1,400 ml @ 58.333 mls/ hr TPN CONT 07/11/19 22:00 07/12/19 21:59 DC 07/11/19 21:42 58.333 MLS/HR Sodium Chloride 90 meq/Potassium Chloride 15 meq/ Potassium Phosphate 10 mmol/ Magnesium Sulfate 12 meq/Calcium Gluconate 15 meq/ Multivitamins 10 ml/Chromium/ Copper/Manganese/ Seleni/Zn 0.5 ml/ Insulin Human Regular 25 unit/ Total Parenteral Nutrition/Amino Acids/Dextrose/ Fat Emulsion Intravenous 1,400 ml @ 58.333 mls/ hr TPN CONT 07/25/19 22:00 07/26/19 21:59 DC 07/25/19 22:24 58.333 MLS/HR Sodium Chloride 90 meq/Potassium Chloride 15 meq/ Potassium Phosphate 15 mmol/ Magnesium Sulfate 10 meq/Calcium Gluconate 15 meq/ Multivitamins 10 ml/Chromium/ Copper/Manganese/ Seleni/Zn 0.5 ml/ Total Parenteral Nutrition/Amino Acids/Dextrose/ Fat Emulsion Intravenous 1,400 ml @ 58.333 mls/ hr TPN CONT 07/12/19 22:00 07/13/19 21:59 DC 07/12/19 22:17 58.333 MLS/HR Sodium Chloride 90 meq/Potassium Chloride 15 meq/ Potassium Phosphate 15 mmol/ Magnesium Sulfate 10 meq/Calcium Gluconate 20 meq/ Multivitamins 10 ml/Chromium/ Copper/Manganese/ Seleni/Zn 0.5 ml/ Total Parenteral Nutrition/Amino Acids/Dextrose/ Fat Emulsion Intravenous 1,200 ml @ 50 mls/hr TPN CONT 07/10/19 22:00 07/10/19 14:17 DC Sodium Chloride 90 meq/Potassium Chloride 15 meq/ Potassium Phosphate 18 mmol/ Magnesium Sulfate 8 meq/Calcium Gluconate 15 meq/ Multivitamins 10 ml/Chromium/ Copper/Manganese/ Seleni/Zn 0.5 ml/ Insulin Human Regular 10 unit/ Total Parenteral Nutrition/Amino Acids/Dextrose/ Fat Emulsion Intravenous 1,400 ml @ 58.333 mls/ hr TPN CONT 07/15/19 22:00 07/16/19 21:59 DC 07/15/19 21:43 58.333 MLS/HR Sodium Chloride 90 meq/Potassium Chloride 15 meq/ Potassium Phosphate 18 mmol/ Magnesium Sulfate 8 meq/Calcium Gluconate 15 meq/ Multivitamins 10 ml/Chromium/ Copper/Manganese/ Seleni/Zn 0.5 ml/ Insulin Human Regular 15 unit/ Total Parenteral Nutrition/Amino Acids/Dextrose/ Fat Emulsion Intravenous 1,400 ml @ 58.333 mls/ hr TPN CONT 07/18/19 22:00 07/19/19 21:59 DC 07/18/19 21:47 58.333 MLS/HR Sodium Chloride 90 meq/Potassium Chloride 15 meq/ Potassium Phosphate 18 mmol/ Magnesium Sulfate 8 meq/Calcium Gluconate 15 meq/ Multivitamins 10 ml/Chromium/ Copper/Manganese/ Seleni/Zn 0.5 ml/ Insulin Human Regular 20 unit/ Total Parenteral Nutrition/Amino Acids/Dextrose/ Fat Emulsion Intravenous 1,400 ml @ 58.333 mls/ hr TPN CONT 07/21/19 22:00 07/22/19 21:59 DC 07/21/19 22:45 58.333 MLS/HR Sodium Chloride 90 meq/Potassium Chloride 15 meq/ Potassium Phosphate 18 mmol/ Magnesium Sulfate 8 meq/Calcium Gluconate 15 meq/ Multivitamins 10 ml/Chromium/ Copper/Manganese/ Seleni/Zn 0.5 ml/ Total Parenteral Nutrition/Amino Acids/Dextrose/ Fat Emulsion Intravenous 1,400 ml @ 58.333 mls/ hr TPN CONT 07/14/19 22:00 07/15/19 21:59 DC 07/14/19 22:00 58.333 MLS/HR Sodium Chloride 90 meq/Potassium Phosphate 15 mmol/ Magnesium Sulfate 12 meq/Calcium Gluconate 15 meq/ Multivitamins 10 ml/Chromium/ Copper/Manganese/ Seleni/Zn 0.5 ml/ Insulin Human Regular 30 unit/ Total Parenteral Nutrition/Amino Acids/Dextrose/ Fat Emulsion Intravenous 1,400 ml @ 58.333 mls/ hr TPN CONT 07/29/19 22:00 07/30/19 21:59 DC 07/29/19 21:49 58.333 MLS/HR Sodium Chloride 90 meq/Potassium Phosphate 15 mmol/ Magnesium Sulfate 12 meq/Calcium Gluconate 15 meq/ Multivitamins 10 ml/Chromium/ Copper/Manganese/ Seleni/Zn 0.5 ml/ Insulin Human Regular 40 unit/ Total Parenteral Nutrition/Amino Acids/Dextrose/ Fat Emulsion Intravenous 1,400 ml @ 58.333 mls/ hr TPN CONT 07/30/19 22:00 07/31/19 21:59 DC 07/30/19 21:21 58.333 MLS/HR Sodium Chloride 90 meq/Potassium Phosphate 19 mmol/ Magnesium Sulfate 12 meq/Calcium Gluconate 15 meq/ Multivitamins 10 ml/Chromium/ Copper/Manganese/ Seleni/Zn 0.5 ml/ Insulin Human Regular 40 unit/ Total Parenteral Nutrition/Amino Acids/Dextrose/ Fat Emulsion Intravenous 1,400 ml @ 58.333 mls/ hr TPN CONT 07/31/19 22:00 08/01/19 21:59 DC 07/31/19 21:54 58.333 MLS/HR Sodium Chloride 90 meq/Potassium Phosphate 5 mmol/ Magnesium Sulfate 12 meq/Calcium Gluconate 15 meq/ Multivitamins 10 ml/Chromium/ Copper/Manganese/ Seleni/Zn 0.5 ml/ Insulin Human Regular 30 unit/ Total Parenteral Nutrition/Amino Acids/Dextrose/ Fat Emulsion Intravenous 1,400 ml @ 58.333 mls/ hr TPN CONT 07/28/19 22:00 07/29/19 21:59 DC 07/28/19 22:08 58.333 MLS/HR Sodium Chloride 100 meq/Potassium Chloride 40 meq/ Magnesium Sulfate 15 meq/Calcium Gluconate 15 meq/ Multivitamins 10 ml/Chromium/ Copper/Manganese/ Seleni/Zn 0.5 ml/ Insulin Human Regular 35 unit/ Total Parenteral Nutrition/Amino Acids/Dextrose/ Fat Emulsion Intravenous 1,400 ml @ 58.333 mls/ hr TPN CONT 08/07/19 22:00 08/08/19 21:59 DC 08/07/19 22:46 58.333 MLS/HR Sodium Chloride 100 meq/Potassium Chloride 40 meq/ Magnesium Sulfate 20 meq/Calcium Gluconate 10 meq/ Multivitamins 10 ml/Chromium/ Copper/Manganese/ Seleni/Zn 0.5 ml/ Insulin Human Regular 35 unit/ Total Parenteral Nutrition/Amino Acids/Dextrose/ Fat Emulsion Intravenous 1,400 ml @ 58.333 mls/ hr TPN CONT 08/11/19 22:00 08/12/19 21:59 DC 08/12/19 00:06 58.333 MLS/HR Sodium Chloride 100 meq/Potassium Chloride 40 meq/ Magnesium Sulfate 20 meq/Calcium Gluconate 15 meq/ Multivitamins 10 ml/Chromium/ Copper/Manganese/ Seleni/Zn 0.5 ml/ Insulin Human Regular 35 unit/ Total Parenteral Nutrition/Amino Acids/Dextrose/ Fat Emulsion Intravenous 1,400 ml @ 58.333 mls/ hr TPN CONT 08/10/19 22:00 08/11/19 21:59 DC 08/10/19 22:27 58.333 MLS/HR Sodium Chloride 100 meq/Potassium Phosphate 10 mmol/ Magnesium Sulfate 12 meq/Calcium Gluconate 15 meq/ Multivitamins 10 ml/Chromium/ Copper/Manganese/ Seleni/Zn 0.5 ml/ Insulin Human Regular 35 unit/ Potassium Chloride 20 meq/ Total Parenteral Nutrition/Amino Acids/Dextrose/ Fat Emulsion Intravenous 1,400 ml @ 58.333 mls/ hr TPN CONT 08/04/19 22:00 08/05/19 21:59 DC 08/04/19 22:10 58.333 MLS/HR Sodium Chloride 100 meq/Potassium Phosphate 19 mmol/ Magnesium Sulfate 12 meq/Calcium Gluconate 15 meq/ Multivitamins 10 ml/Chromium/ Copper/Manganese/ Seleni/Zn 0.5 ml/ Insulin Human Regular 40 unit/ Potassium Chloride 20 meq/ Total Parenteral Nutrition/Amino Acids/Dextrose/ Fat Emulsion Intravenous 1,400 ml @ 58.333 mls/ hr TPN CONT 08/03/19 22:00 08/04/19 21:59 DC 08/03/19 21:20 58.333 MLS/HR Sodium Chloride 100 meq/Potassium Phosphate 5 mmol/ Magnesium Sulfate 12 meq/Calcium Gluconate 15 meq/ Multivitamins 10 ml/Chromium/ Copper/Manganese/ Seleni/Zn 0.5 ml/ Insulin Human Regular 35 unit/ Potassium Chloride 20 meq/ Total Parenteral Nutrition/Amino Acids/Dextrose/ Fat Emulsion Intravenous 1,400 ml @ 58.333 mls/ hr TPN CONT 08/05/19 22:00 08/06/19 21:59 DC 08/05/19 22:59 58.333 MLS/HR Succinylcholine Chloride (Anectine) 120 mg 1X ONCE 07/11/19 08:30 07/11/19 08:31 DC 07/11/19 08:34 120 MG Labs: Lab Laboratory Tests Test 08/19/19 12:20 08/19/19 17:31 08/19/19 23:34 08/20/19 05:45 Glucose (Fingerstick) 147 mg/dL (70-99) 140 mg/dL (70-99) 134 mg/dL (70-99) White Blood Count 9.7 x10^3/uL (4.0-11.0) Red Blood Count 2.46 x10^6/uL (3.50-5.40) Hemoglobin 7.2 g/dL (12.0-15.5) Hematocrit 22.4 % (36.0-47.0) Mean Corpuscular Volume 91 fL (79-100) Mean Corpuscular Hemoglobin 29 pg (25-35) Mean Corpuscular Hemoglobin Concent 32 g/dL (31-37) Red Cell Distribution Width 18.1 % (11.5-14.5) Platelet Count 419 x10^3/uL (140-400) Neutrophils (%) (Auto) 77 % (31-73) Lymphocytes (%) (Auto) 16 % (24-48) Monocytes (%) (Auto) 5 % (0-9) Eosinophils (%) (Auto) 2 % (0-3) Basophils (%) (Auto) 0 % (0-3) Neutrophils # (Auto) 7.4 x10^3/uL (1.8-7.7) Lymphocytes # (Auto) 1.5 x10^3/uL (1.0-4.8) Monocytes # (Auto) 0.4 x10^3/uL (0.0-1.1) Eosinophils # (Auto) 0.2 x10^3/uL (0.0-0.7) Basophils # (Auto) 0.0 x10^3/uL (0.0-0.2) Sodium Level 154 mmol/L (136-145) Potassium Level 2.9 mmol/L (3.5-5.1) Chloride Level 111 mmol/L (98-107) Carbon Dioxide Level 34 mmol/L (21-32) Anion Gap 9 (6-14) Blood Urea Nitrogen 45 mg/dL (7-20) Creatinine 1.0 mg/dL (0.6-1.0) Estimated GFR (Cockcroft-Gault) 58.9 Glucose Level 153 mg/dL (70-99) Calcium Level 8.6 mg/dL (8.5-10.1) Phosphorus Level 3.6 mg/dL (2.6-4.7) Magnesium Level 1.8 mg/dL (1.8-2.4) Test 08/20/19 05:48 Glucose (Fingerstick) 149 mg/dL (70-99) Objective: Assessment: Fever intermittent could be from underlying pancreatitis Acute pancreatitis with persistent necrosis CT a/p 07/27 Increased ascites. 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 Leucocytosis improving JUANA,Hyperkalemia, Metabolic acidosis off dialysis Acute hypoxic resp failure ,bilateral pleural effusion and atelectasis hypocalcemia Prediabetes HTN s/p trach Plan: Plan of Care cont merrem (07/26), off micafungin and daptomycin 08/17 Central line has been removed Follow-up cultures and lab Monitor for abx toxicities. Maintain aspiration precautions PT and OT as tolerated YUNIOR JONES MD August 20, 2019 11:48
--- NOTE | 2019-08-20 12:04 | PDOC ---
SUBJECTIVE ROS stable , sitting up in bed , states she is feeling thirsty OBJECTIVE Vital Signs Vital Signs Date Time Temp Pulse Resp B/P (MAP) Pulse Ox O2 Delivery O2 Flow Rate FiO2 08/20/19 10:00 136 32 163/76 (105) 100 Tracheal Collar 08/20/19 08:00 99.9 99.9 08/20/19 00:00 I & 0 Intake and Output 08/20/19 06:59 Intake Total 3127.0 ml Output Total 4170 ml Balance -1043.0 ml IV Total 3127.0 ml Output Urine Total 4085 ml Drainage Total 85 ml PHYSICAL EXAM Physical Exam GENERAL: Propped up in bed, HEENT: oral cavity dry NECK: Trach/vent LUNGS: Non labored HEART: S1, S2, regular ABDOMEN: Distended, hypoactive BS, drain placement (08/14 ) : Lind (08/01) EXTREMITIES: Generalized edema, DERMATOLOGIC: Warm and dry. No generalized rash. DIAGNOSIS/ASSESSMENT Assessment & Plan ARF-- ATN,requiring CRRT and HD Has been Off HD, HDC removed Stable renal function, Excellent UOP-? 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 Moderate pleural effusions, may be slightly improved. Infiltrate/atelectasis in both lung bases. Ascites - post paracentesis on 08/02- 4300 cc of thin, light brown fluid was removed Acute hypoxic resp failure ,bilateral pleural effusion Trach in place , On Vent HTN COVID-19 neg, 07/13 COMMENT/RELEVANT DATA Meds Current Medications Medications (Trade) Dose Ordered Sig/Yvon Start Time Stop Time Status Last Admin Dose Admin Acetaminophen (Tylenol Supp) 650 mg PRN Q6HRS PRN 07/12/19 10:30 08/15/19 00:32 650 MG Acetaminophen (Tylenol) 650 mg PRN Q6HRS PRN 07/09/19 03:36 08/04/19 19:56 650 MG Albumin Human 200 ml @ 200 mls/hr 1X PRN PRN 08/09/19 08:00 08/09/19 13:59 DC 08/09/19 08:40 200 MLS/HR Albuterol Sulfate (Ventolin Neb Soln) 2.5 mg 1X ONCE 07/05/19 22:30 07/05/19 22:31 DC 07/06/19 00:56 2.5 MG Alteplase, Recombinant (Cathflo For Central Catheter Clearance) 1 mg 1X ONCE 08/12/19 10:45 08/12/19 10:46 DC 08/12/19 11:44 1 MG Amino Acids/ Glycerin/ Electrolytes 1,000 ml @ 75 mls/hr [id number] 08/08/19 21:15 UNV Artificial Tears (Artificial Tears) 1 drop PRN Q15MIN PRN 08/17/19 05:30 08/19/19 12:34 1 DROP Atenolol (Tenormin) 100 mg DAILY 07/05/19 09:00 07/04/19 20:08 DC Atropine Sulfate (ATROPINE 0.5mg SYRINGE) 0.5 mg PRN Q5MIN PRN 07/21/19 08:15 Benzocaine (Hurricaine One) 1 spray 1X ONCE 07/08/19 14:30 07/08/19 14:31 DC 07/08/19 16:38 1 SPRAY Bisacodyl (Dulcolax Supp) 10 mg STK-MED ONCE 08/15/19 10:59 08/15/19 10:59 DC Bumetanide (Bumex) 2 mg [id number] 08/16/19 14:00 08/19/19 13:50 2 MG Bupivacaine HCl/ Epinephrine Bitart (Sensorcain-Epi 0.5%-1:[id number] Mpf) 30 ml STK-MED ONCE 08/15/19 10:58 08/15/19 10:58 DC 08/15/19 12:01 7 ML Calcium Carbonate/ Glycine (Tums) 500 mg PRN [id number] PRN 07/06/19 17:45 Calcium Chloride 1000 mg/Sodium Chloride 110 ml @ 220 mls/hr 1X ONCE 07/05/19 22:30 07/05/19 22:59 DC 07/05/19 22:11 220 MLS/HR Calcium Chloride 3000 mg/Sodium Chloride 1,030 ml @ 50 mls/hr [id number] 07/07/19 08:00 07/09/19 15:23 DC 07/09/19 02:17 50 MLS/HR Calcium Gluconate (Calcium Gluconate) 2,000 mg 1X ONCE 07/07/19 02:15 07/07/19 02:16 DC 07/07/19 02:19 2,000 MG Calcium Gluconate 1000 mg/Sodium Chloride 110 ml @ 220 mls/hr 1X ONCE 07/06/19 03:30 07/06/19 03:59 DC 07/06/19 03:21 220 MLS/HR Calcium Gluconate 2000 mg/Sodium Chloride 120 ml @ 220 mls/hr 1X ONCE 07/06/19 07:30 07/06/19 08:02 DC 07/06/19 09:05 220 MLS/HR Cefepime HCl (Maxipime) 2 gm Q12HR 07/13/19 09:00 07/27/19 09:58 DC 07/26/19 20:56 2 GM Cellulose (Surgicel Fibrillar 1x2) 1 each STK-MED ONCE 07/25/19 11:00 07/25/19 11:01 DC Cellulose (Surgicel Hemostat 2x14) 1 each STK-MED ONCE 08/15/19 10:58 08/15/19 10:59 DC Cellulose (Surgicel Hemostat 4x8) 1 each STK-MED ONCE 08/15/19 10:58 08/15/19 10:59 DC Cyclobenzaprine HCl (Flexeril) 10 mg PRN Q6HRS PRN 08/18/19 10:45 Daptomycin 430 mg/ Sodium Chloride 50 ml @ 100 mls/hr Q24H 08/13/19 13:00 08/18/19 20:58 DC 08/18/19 13:00 100 MLS/HR Daptomycin 500 mg/ Sodium Chloride 50 ml @ 100 mls/hr Q48H 07/13/19 08:30 07/29/19 10:07 DC 07/29/19 09:57 100 MLS/HR Dexamethasone Sodium Phosphate (Decadron) 4 mg STK-MED ONCE 08/15/19 10:56 08/15/19 10:57 DC Dexmedetomidine HCl 400 mcg/ Sodium Chloride 100 ml @ 0 mls/hr CONT PRN 07/21/19 08:15 08/20/19 10:10 16.7 MLS/HR Dextrose (Dextrose 50%-Water Syringe) 12.5 gm PRN Q15MIN PRN 07/04/19 09:30 Digoxin (Lanoxin) 125 mcg 1X ONCE 07/07/19 18:00 07/07/19 18:01 DC 07/07/19 17:10 125 MCG Diphenhydramine HCl (Benadryl) 25 mg 1X PRN PRN 08/12/19 15:45 08/13/19 15:44 DC Enoxaparin Sodium (Lovenox 100mg Syringe) 100 mg Q12HR 08/09/19 21:00 UNV Etomidate (Amidate) 8 mg 1X ONCE 07/11/19 08:30 07/11/19 08:31 DC 07/11/19 08:33 8 MG Fentanyl Citrate (Fentanyl 2ml Vial) 100 mcg STK-MED ONCE 08/15/19 10:56 08/15/19 10:57 DC Furosemide (Lasix) 40 mg 1X ONCE 08/01/19 14:30 08/01/19 14:31 DC 08/01/19 14:39 40 MG Heparin Sodium (Porcine) (Hep Lock Adult) 500 unit STK-MED ONCE 07/26/19 09:29 07/26/19 09:30 DC Heparin Sodium (Porcine) (Heparin Sodium) 5,000 unit Q12HR 08/15/19 21:00 08/20/19 10:09 5,000 UNIT Heparin Sodium (Porcine) 1000 unit/Sodium Chloride 1,001 ml @ 1,001 mls/hr 1X ONCE 08/15/19 12:00 08/15/19 12:59 DC Hydromorphone HCl (Dilaudid Standard [employer]) 12 mg STK-MED ONCE 08/18/19 13:47 08/19/19 11:03 DC Hydromorphone HCl (Dilaudid) 1 mg PRN Q3HRS PRN 07/05/19 12:00 07/19/19 00:25 DC 07/11/19 05:13 1 MG Info (CONTRAST GIVEN -- Rx MONITORING) 1 each PRN DAILY PRN 07/18/19 11:45 07/20/19 11:44 DC Info (Icu Electrolyte Protocol) 1 ea CONT PRN PRN 07/17/19 13:15 Info (PHARMACY MONITORING -- do not chart) 1 each PRN DAILY PRN 08/12/19 15:45 Info (Tpn Per Pharmacy) 1 each PRN DAILY PRN 07/06/19 12:30 UNV Insulin Human Lispro (HumaLOG) 0-9 UNITS Q6HRS 07/04/19 09:30 08/18/19 17:29 4 UNITS Insulin Human Regular (HumuLIN R VIAL) 5 unit 1X ONCE 07/05/19 22:30 07/05/19 22:31 DC 07/05/19 22:14 5 UNIT Iohexol (Omnipaque 240 Mg/ml) 30 ml 1X ONCE 07/18/19 11:30 07/18/19 11:33 DC 07/18/19 11:30 30 ML Iohexol (Omnipaque 300 Mg/ml) 50 ml STK-MED ONCE 08/15/19 10:58 08/15/19 10:59 DC Iohexol (Omnipaque 350 Mg/ml) 90 ml 1X ONCE 07/04/19 03:30 07/04/19 03:31 DC 07/04/19 03:25 90 ML Ketorolac Tromethamine (Toradol 30mg Vial) 30 mg 1X ONCE 07/04/19 03:00 07/04/19 03:01 DC 07/04/19 02:54 30 MG Lidocaine HCl (Buffered Lidocaine 1%) 6 ml 1X ONCE 08/03/19 13:30 08/03/19 13:31 DC 08/03/19 13:45 9 ML Lidocaine HCl (Glydo (Lidocaine) Jelly) 1 ramu 1X ONCE 07/08/19 14:30 07/08/19 14:31 DC 07/08/19 16:38 1 RAMU Lidocaine HCl (Xylocaine-Mpf 1% 2ml Vial) 2 ml PRN 1X PRN 08/15/19 07:00 08/16/19 06:59 DC Linezolid/Dextrose 300 ml @ 300 mls/hr Q12HR 07/29/19 11:00 08/09/19 08:10 DC 08/08/19 20:40 300 MLS/HR Lorazepam (Ativan Inj) 1 mg PRN Q4HRS PRN 07/07/19 09:00 08/05/19 09:19 DC 08/05/19 03:51 1 MG Magnesium Sulfate 50 ml @ 25 mls/hr 1X ONCE 08/20/19 10:30 08/20/19 12:29 08/20/19 10:34 25 MLS/HR Meropenem 1 gm/ Sodium Chloride 100 ml @ 200 mls/hr Q8HRS 08/16/19 14:00 08/20/19 05:42 200 MLS/HR Meropenem 500 mg/ Sodium Chloride 50 ml @ 100 mls/hr Q12H 07/27/19 10:00 08/16/19 12:37 DC 08/16/19 10:45 100 MLS/HR Metoprolol Tartrate (Lopressor Vial) 5 mg Q6HRS 07/05/19 10:15 07/16/19 08:48 DC 07/14/19 00:12 5 MG Metronidazole 100 ml @ 100 mls/hr Q8HRS 08/02/19 10:00 08/09/19 08:10 DC 08/09/19 06:04 100 MLS/HR Micafungin Sodium 100 mg/Dextrose 100 ml @ 100 mls/hr Q24H 07/11/19 09:00 08/18/19 20:58 DC 08/18/19 08:18 100 MLS/HR Midazolam HCl (Versed) 5 mg 1X ONCE 07/11/19 08:30 07/11/19 08:31 DC Midazolam HCl 100 mg/Sodium Chloride 100 ml @ 7 mls/hr CONT PRN 07/16/19 16:00 07/27/19 15:35 7 MLS/HR Midazolam HCl 50 mg/Sodium Chloride 50 ml @ 0 mls/hr CONT PRN 07/11/19 08:15 07/16/19 15:59 DC 07/14/19 22:39 7 MLS/HR Morphine Sulfate (Morphine Sulfate) 2 mg PRN Q2HR PRN 07/04/19 05:00 07/05/19 14:15 DC 07/05/19 12:26 2 MG Multi-Ingred Cream/Lotion/Oil/ Oint (Artificial Tears Eye Ointment) 1 ramu PRN Q1HR PRN 07/13/19 17:30 08/01/19 08:19 1 RAMU Naloxone HCl (Narcan) 0.4 mg PRN Q2MIN PRN 08/15/19 14:30 UNV Norepinephrine Bitartrate 8 mg/ Dextrose 258 ml @ 17.299 mls/ hr CONT PRN 07/05/19 15:30 08/05/19 09:19 DC 08/02/19 12:48 20.9 MLS/HR Ondansetron HCl (Zofran) 4 mg STK-MED ONCE 08/15/19 10:56 08/15/19 10:57 DC Pantoprazole Sodium (PROTONIX VIAL for IV PUSH) 40 mg DAILYAC 07/04/19 11:30 08/20/19 08:20 40 MG Phenylephrine HCl (PHENYLEPHRINE in 0.9% NACL PF) 1 mg STK-MED ONCE 08/15/19 12:34 08/15/19 12:34 DC Piperacillin Sod/ Tazobactam Sod 4.5 gm/Sodium Chloride 100 ml @ 200 mls/hr 1X ONCE 07/04/19 06:00 07/04/19 06:29 DC 07/04/19 05:44 200 MLS/HR Potassium Chloride 15 meq/ Bicarbonate Dialysis Soln w/ out KCl 5,007.5 ml @ 1,000 mls/ hr Q5H1M 07/17/19 20:00 07/21/19 13:08 DC 07/20/19 18:14 1,000 MLS/HR Potassium Chloride 20 meq/ Bicarbonate Dialysis Soln w/ out KCl 5,010 ml @ 1,000 mls/hr Q5H1M 07/13/19 16:00 07/17/19 19:59 DC 07/17/19 14:54 1,000 MLS/HR Potassium Chloride 75 meq/ Magnesium Sulfate 20 meq/Calcium Gluconate 10 meq/ Multivitamins 10 ml/Chromium/ Copper/Manganese/ Seleni/Zn 0.5 ml/ Insulin Human Regular 30 unit/ Total Parenteral Nutrition/Amino Acids/Dextrose/ Fat Emulsion Intravenous 1,920 ml @ 80 mls/hr TPN CONT 08/20/19 22:00 08/21/19 21:59 Potassium Chloride/Water 100 ml @ 100 mls/hr Q1H 08/20/19 07:00 08/20/19 10:59 DC 08/20/19 09:59 100 MLS/HR Potassium Phosphate 20 mmol/ Sodium Chloride 106.6667 ml @ 51.667 m... 1X ONCE 07/13/19 13:00 07/13/19 15:03 DC 07/13/19 12:51 51.667 MLS/HR Potassium Acetate 30 meq/Magnesium Sulfate 20 meq/ Calcium Gluconate 10 meq/ Multivitamins 10 ml/Chromium/ Copper/Manganese/ Seleni/Zn 0.5 ml/ Insulin Human Regular 30 unit/ Potassium Chloride 30 meq/ Total Parenteral Nutrition/Amino Acids/Dextrose/ Fat Emulsion Intravenous 1,920 ml @ 80 mls/hr TPN CONT 08/19/19 22:00 08/20/19 21:59 08/19/19 22:34 80 MLS/HR Potassium Acetate 55 meq/Magnesium Sulfate 20 meq/ Calcium Gluconate 10 meq/ Multivitamins 10 ml/Chromium/ Copper/Manganese/ Seleni/Zn 0.5 ml/ Insulin Human Regular 30 unit/ Total Parenteral Nutrition/Amino Acids/Dextrose/ Fat Emulsion Intravenous 1,920 ml @ 80 mls/hr TPN CONT 08/18/19 22:00 08/19/19 21:59 DC 08/19/19 01:00 80 MLS/HR Potassium Acetate 55 meq/Magnesium Sulfate 20 meq/ Calcium Gluconate 10 meq/ Multivitamins 10 ml/Chromium/ Copper/Manganese/ Seleni/Zn 0.5 ml/ Insulin Human Regular 35 unit/ Total Parenteral Nutrition/Amino Acids/Dextrose/ Fat Emulsion Intravenous 1,920 ml @ 80 mls/hr TPN CONT 08/16/19 22:00 08/17/19 21:59 DC 08/16/19 22:02 80 MLS/HR Potassium Acetate 65 meq/Magnesium Sulfate 20 meq/ Calcium Gluconate 10 meq/ Multivitamins 10 ml/Chromium/ Copper/Manganese/ Seleni/Zn 0.5 ml/ Insulin Human Regular 30 unit/ Total Parenteral Nutrition/Amino Acids/Dextrose/ Fat Emulsion Intravenous 1,920 ml @ 80 mls/hr TPN CONT 08/17/19 22:00 08/18/19 21:59 DC 08/17/19 22:22 80 MLS/HR Prochlorperazine Edisylate (Compazine) 5 mg PACU PRN PRN 08/15/19 07:00 08/16/19 06:59 DC Propofol 20 ml @ As Directed STK-MED ONCE 08/15/19 12:26 08/15/19 12:27 DC Ringer's Solution 1,000 ml @ 30 mls/hr Q24H 08/15/19 07:00 08/15/19 18:59 DC Rocuronium [place] (Zemuron) 50 mg STK-MED ONCE 08/15/19 10:56 08/15/19 10:57 DC Sevoflurane (Ultane) 60 ml STK-MED ONCE 08/15/19 12:26 08/15/19 12:27 DC Sodium Bicarbonate 50 meq/Sodium Chloride 1,050 ml @ 75 mls/hr Q14H 07/06/19 07:30 07/11/19 10:28 DC 07/10/19 21:10 75 MLS/HR Sodium Acetate 50 meq/Potassium Acetate 55 meq/ Magnesium Sulfate 20 meq/Calcium Gluconate 10 meq/ Multivitamins 10 ml/Chromium/ Copper/Manganese/ Seleni/Zn 0.5 ml/ Insulin Human Regular 35 unit/ Total Parenteral Nutrition/Amino Acids/Dextrose/ Fat Emulsion Intravenous 1,800 ml @ 75 mls/hr TPN CONT 08/13/19 22:00 08/14/19 21:59 DC 08/13/19 22:03 75 MLS/HR Sodium Chloride 1,000 ml @ 25 mls/hr Q24H 08/15/19 14:30 UNV Sodium Chloride (Normal Saline Flush) 3 ml QSHIFT PRN 08/15/19 13:45 Sodium Chloride 90 meq/Calcium Gluconate 10 meq/ Multivitamins 10 ml/Chromium/ Copper/Manganese/ Seleni/Zn 0.5 ml/ Total Parenteral Nutrition/Amino Acids/Dextrose/ Fat Emulsion Intravenous 1,512 ml @ 63 mls/hr TPN CONT 07/06/19 22:00 07/07/19 21:59 DC 07/06/19 22:06 63 MLS/HR Sodium Chloride 90 meq/Calcium Gluconate 10 meq/ Multivitamins 10 ml/Chromium/ Copper/Manganese/ Seleni/Zn 1 ml/ Total Parenteral Nutrition/Amino Acids/Dextrose/ Fat Emulsion Intravenous 55.005 ml @ 2.292 mls/hr TPN CONT 07/06/19 22:00 07/06/19 12:33 DC Sodium Chloride 90 meq/Magnesium Sulfate 10 meq/ Calcium Gluconate 20 meq/ Multivitamins 10 ml/Chromium/ Copper/Manganese/ Seleni/Zn 0.5 ml/ Total Parenteral Nutrition/Amino Acids/Dextrose/ Fat Emulsion Intravenous 1,512 ml @ 63 mls/hr TPN CONT 07/07/19 22:00 07/08/19 21:59 DC 07/07/19 22:25 63 MLS/HR Sodium Chloride 90 meq/Magnesium Sulfate 12 meq/ Calcium Gluconate 15 meq/ Multivitamins 10 ml/Chromium/ Copper/Manganese/ Seleni/Zn 0.5 ml/ Insulin Human Regular 25 unit/ Total Parenteral Nutrition/Amino Acids/Dextrose/ Fat Emulsion Intravenous 1,400 ml @ 58.333 mls/ hr TPN CONT 07/27/19 22:00 07/28/19 21:59 DC 07/27/19 21:41 58.333 MLS/HR Sodium Chloride 90 meq/Potassium Chloride 15 meq/ Magnesium Sulfate 12 meq/Calcium Gluconate 15 meq/ Multivitamins 10 ml/Chromium/ Copper/Manganese/ Seleni/Zn 0.5 ml/ Insulin Human Regular 25 unit/ Total Parenteral Nutrition/Amino Acids/Dextrose/ Fat Emulsion Intravenous 1,400 ml @ 58.333 mls/ hr TPN CONT 07/26/19 22:00 07/27/19 21:59 DC 07/26/19 22:13 58.333 MLS/HR Sodium Chloride 90 meq/Potassium Chloride 15 meq/ Potassium Phosphate 10 mmol/ Magnesium Sulfate 8 meq/Calcium Gluconate 15 meq/ Multivitamins 10 ml/Chromium/ Copper/Manganese/ Seleni/Zn 0.5 ml/ Insulin Human Regular 25 unit/ Total Parenteral Nutrition/Amino Acids/Dextrose/ Fat Emulsion Intravenous 1,400 ml @ 58.333 mls/ hr TPN CONT 07/24/19 22:00 07/25/19 21:59 DC 07/24/19 21:20 58.333 MLS/HR Sodium Chloride 90 meq/Potassium Chloride 15 meq/ Potassium Phosphate 10 mmol/ Magnesium Sulfate 10 meq/Calcium Gluconate 20 meq/ Multivitamins 10 ml/Chromium/ Copper/Manganese/ Seleni/Zn 0.5 ml/ Total Parenteral Nutrition/Amino Acids/Dextrose/ Fat Emulsion Intravenous 1,400 ml @ 58.333 mls/ hr TPN CONT 07/11/19 22:00 07/12/19 21:59 DC 07/11/19 21:42 58.333 MLS/HR Sodium Chloride 90 meq/Potassium Chloride 15 meq/ Potassium Phosphate 10 mmol/ Magnesium Sulfate 12 meq/Calcium Gluconate 15 meq/ Multivitamins 10 ml/Chromium/ Copper/Manganese/ Seleni/Zn 0.5 ml/ Insulin Human Regular 25 unit/ Total Parenteral Nutrition/Amino Acids/Dextrose/ Fat Emulsion Intravenous 1,400 ml @ 58.333 mls/ hr TPN CONT 07/25/19 22:00 07/26/19 21:59 DC 07/25/19 22:24 58.333 MLS/HR Sodium Chloride 90 meq/Potassium Chloride 15 meq/ Potassium Phosphate 15 mmol/ Magnesium Sulfate 10 meq/Calcium Gluconate 15 meq/ Multivitamins 10 ml/Chromium/ Copper/Manganese/ Seleni/Zn 0.5 ml/ Total Parenteral Nutrition/Amino Acids/Dextrose/ Fat Emulsion Intravenous 1,400 ml @ 58.333 mls/ hr TPN CONT 07/12/19 22:00 07/13/19 21:59 DC 07/12/19 22:17 58.333 MLS/HR Sodium Chloride 90 meq/Potassium Chloride 15 meq/ Potassium Phosphate 15 mmol/ Magnesium Sulfate 10 meq/Calcium Gluconate 20 meq/ Multivitamins 10 ml/Chromium/ Copper/Manganese/ Seleni/Zn 0.5 ml/ Total Parenteral Nutrition/Amino Acids/Dextrose/ Fat Emulsion Intravenous 1,200 ml @ 50 mls/hr TPN CONT 07/10/19 22:00 07/10/19 14:17 DC Sodium Chloride 90 meq/Potassium Chloride 15 meq/ Potassium Phosphate 18 mmol/ Magnesium Sulfate 8 meq/Calcium Gluconate 15 meq/ Multivitamins 10 ml/Chromium/ Copper/Manganese/ Seleni/Zn 0.5 ml/ Insulin Human Regular 10 unit/ Total Parenteral Nutrition/Amino Acids/Dextrose/ Fat Emulsion Intravenous 1,400 ml @ 58.333 mls/ hr TPN CONT 07/15/19 22:00 07/16/19 21:59 DC 07/15/19 21:43 58.333 MLS/HR Sodium Chloride 90 meq/Potassium Chloride 15 meq/ Potassium Phosphate 18 mmol/ Magnesium Sulfate 8 meq/Calcium Gluconate 15 meq/ Multivitamins 10 ml/Chromium/ Copper/Manganese/ Seleni/Zn 0.5 ml/ Insulin Human Regular 15 unit/ Total Parenteral Nutrition/Amino Acids/Dextrose/ Fat Emulsion Intravenous 1,400 ml @ 58.333 mls/ hr TPN CONT 07/18/19 22:00 07/19/19 21:59 DC 07/18/19 21:47 58.333 MLS/HR Sodium Chloride 90 meq/Potassium Chloride 15 meq/ Potassium Phosphate 18 mmol/ Magnesium Sulfate 8 meq/Calcium Gluconate 15 meq/ Multivitamins 10 ml/Chromium/ Copper/Manganese/ Seleni/Zn 0.5 ml/ Insulin Human Regular 20 unit/ Total Parenteral Nutrition/Amino Acids/Dextrose/ Fat Emulsion Intravenous 1,400 ml @ 58.333 mls/ hr TPN CONT 07/21/19 22:00 07/22/19 21:59 DC 07/21/19 22:45 58.333 MLS/HR Sodium Chloride 90 meq/Potassium Chloride 15 meq/ Potassium Phosphate 18 mmol/ Magnesium Sulfate 8 meq/Calcium Gluconate 15 meq/ Multivitamins 10 ml/Chromium/ Copper/Manganese/ Seleni/Zn 0.5 ml/ Total Parenteral Nutrition/Amino Acids/Dextrose/ Fat Emulsion Intravenous 1,400 ml @ 58.333 mls/ hr TPN CONT 07/14/19 22:00 07/15/19 21:59 DC 07/14/19 22:00 58.333 MLS/HR Sodium Chloride 90 meq/Potassium Phosphate 15 mmol/ Magnesium Sulfate 12 meq/Calcium Gluconate 15 meq/ Multivitamins 10 ml/Chromium/ Copper/Manganese/ Seleni/Zn 0.5 ml/ Insulin Human Regular 30 unit/ Total Parenteral Nutrition/Amino Acids/Dextrose/ Fat Emulsion Intravenous 1,400 ml @ 58.333 mls/ hr TPN CONT 07/29/19 22:00 07/30/19 21:59 DC 07/29/19 21:49 58.333 MLS/HR Sodium Chloride 90 meq/Potassium Phosphate 15 mmol/ Magnesium Sulfate 12 meq/Calcium Gluconate 15 meq/ Multivitamins 10 ml/Chromium/ Copper/Manganese/ Seleni/Zn 0.5 ml/ Insulin Human Regular 40 unit/ Total Parenteral Nutrition/Amino Acids/Dextrose/ Fat Emulsion Intravenous 1,400 ml @ 58.333 mls/ hr TPN CONT 07/30/19 22:00 07/31/19 21:59 DC 07/30/19 21:21 58.333 MLS/HR Sodium Chloride 90 meq/Potassium Phosphate 19 mmol/ Magnesium Sulfate 12 meq/Calcium Gluconate 15 meq/ Multivitamins 10 ml/Chromium/ Copper/Manganese/ Seleni/Zn 0.5 ml/ Insulin Human Regular 40 unit/ Total Parenteral Nutrition/Amino Acids/Dextrose/ Fat Emulsion Intravenous 1,400 ml @ 58.333 mls/ hr TPN CONT 07/31/19 22:00 08/01/19 21:59 DC 07/31/19 21:54 58.333 MLS/HR Sodium Chloride 90 meq/Potassium Phosphate 5 mmol/ Magnesium Sulfate 12 meq/Calcium Gluconate 15 meq/ Multivitamins 10 ml/Chromium/ Copper/Manganese/ Seleni/Zn 0.5 ml/ Insulin Human Regular 30 unit/ Total Parenteral Nutrition/Amino Acids/Dextrose/ Fat Emulsion Intravenous 1,400 ml @ 58.333 mls/ hr TPN CONT 07/28/19 22:00 07/29/19 21:59 DC 07/28/19 22:08 58.333 MLS/HR Sodium Chloride 100 meq/Potassium Chloride 40 meq/ Magnesium Sulfate 15 meq/Calcium Gluconate 15 meq/ Multivitamins 10 ml/Chromium/ Copper/Manganese/ Seleni/Zn 0.5 ml/ Insulin Human Regular 35 unit/ Total Parenteral Nutrition/Amino Acids/Dextrose/ Fat Emulsion Intravenous 1,400 ml @ 58.333 mls/ hr TPN CONT 08/07/19 22:00 08/08/19 21:59 DC 08/07/19 22:46 58.333 MLS/HR Sodium Chloride 100 meq/Potassium Chloride 40 meq/ Magnesium Sulfate 20 meq/Calcium Gluconate 10 meq/ Multivitamins 10 ml/Chromium/ Copper/Manganese/ Seleni/Zn 0.5 ml/ Insulin Human Regular 35 unit/ Total Parenteral Nutrition/Amino Acids/Dextrose/ Fat Emulsion Intravenous 1,400 ml @ 58.333 mls/ hr TPN CONT 08/11/19 22:00 08/12/19 21:59 DC 08/12/19 00:06 58.333 MLS/HR Sodium Chloride 100 meq/Potassium Chloride 40 meq/ Magnesium Sulfate 20 meq/Calcium Gluconate 15 meq/ Multivitamins 10 ml/Chromium/ Copper/Manganese/ Seleni/Zn 0.5 ml/ Insulin Human Regular 35 unit/ Total Parenteral Nutrition/Amino Acids/Dextrose/ Fat Emulsion Intravenous 1,400 ml @ 58.333 mls/ hr TPN CONT 08/10/19 22:00 08/11/19 21:59 DC 08/10/19 22:27 58.333 MLS/HR Sodium Chloride 100 meq/Potassium Phosphate 10 mmol/ Magnesium Sulfate 12 meq/Calcium Gluconate 15 meq/ Multivitamins 10 ml/Chromium/ Copper/Manganese/ Seleni/Zn 0.5 ml/ Insulin Human Regular 35 unit/ Potassium Chloride 20 meq/ Total Parenteral Nutrition/Amino Acids/Dextrose/ Fat Emulsion Intravenous 1,400 ml @ 58.333 mls/ hr TPN CONT 08/04/19 22:00 08/05/19 21:59 DC 08/04/19 22:10 58.333 MLS/HR Sodium Chloride 100 meq/Potassium Phosphate 19 mmol/ Magnesium Sulfate 12 meq/Calcium Gluconate 15 meq/ Multivitamins 10 ml/Chromium/ Copper/Manganese/ Seleni/Zn 0.5 ml/ Insulin Human Regular 40 unit/ Potassium Chloride 20 meq/ Total Parenteral Nutrition/Amino Acids/Dextrose/ Fat Emulsion Intravenous 1,400 ml @ 58.333 mls/ hr TPN CONT 08/03/19 22:00 08/04/19 21:59 DC 08/03/19 21:20 58.333 MLS/HR Sodium Chloride 100 meq/Potassium Phosphate 5 mmol/ Magnesium Sulfate 12 meq/Calcium Gluconate 15 meq/ Multivitamins 10 ml/Chromium/ Copper/Manganese/ Seleni/Zn 0.5 ml/ Insulin Human Regular 35 unit/ Potassium Chloride 20 meq/ Total Parenteral Nutrition/Amino Acids/Dextrose/ Fat Emulsion Intravenous 1,400 ml @ 58.333 mls/ hr TPN CONT 08/05/19 22:00 08/06/19 21:59 DC 08/05/19 22:59 58.333 MLS/HR Succinylcholine Chloride (Anectine) 120 mg 1X ONCE 07/11/19 08:30 07/11/19 08:31 DC 07/11/19 08:34 120 MG Lab Laboratory Tests Test 08/19/19 12:20 08/19/19 17:31 08/19/19 23:34 08/20/19 05:45 Glucose (Fingerstick) 147 mg/dL (70-99) 140 mg/dL (70-99) 134 mg/dL (70-99) White Blood Count 9.7 x10^3/uL (4.0-11.0) Red Blood Count 2.46 x10^6/uL (3.50-5.40) Hemoglobin 7.2 g/dL (12.0-15.5) Hematocrit 22.4 % (36.0-47.0) Mean Corpuscular Volume 91 fL (79-100) Mean Corpuscular Hemoglobin 29 pg (25-35) Mean Corpuscular Hemoglobin Concent 32 g/dL (31-37) Red Cell Distribution Width 18.1 % (11.5-14.5) Platelet Count 419 x10^3/uL (140-400) Neutrophils (%) (Auto) 77 % (31-73) Lymphocytes (%) (Auto) 16 % (24-48) Monocytes (%) (Auto) 5 % (0-9) Eosinophils (%) (Auto) 2 % (0-3) Basophils (%) (Auto) 0 % (0-3) Neutrophils # (Auto) 7.4 x10^3/uL (1.8-7.7) Lymphocytes # (Auto) 1.5 x10^3/uL (1.0-4.8) Monocytes # (Auto) 0.4 x10^3/uL (0.0-1.1) Eosinophils # (Auto) 0.2 x10^3/uL (0.0-0.7) Basophils # (Auto) 0.0 x10^3/uL (0.0-0.2) Sodium Level 154 mmol/L (136-145) Potassium Level 2.9 mmol/L (3.5-5.1) Chloride Level 111 mmol/L (98-107) Carbon Dioxide Level 34 mmol/L (21-32) Anion Gap 9 (6-14) Blood Urea Nitrogen 45 mg/dL (7-20) Creatinine 1.0 mg/dL (0.6-1.0) Estimated GFR (Cockcroft-Gault) 58.9 Glucose Level 153 mg/dL (70-99) Calcium Level 8.6 mg/dL (8.5-10.1) Phosphorus Level 3.6 mg/dL (2.6-4.7) Magnesium Level 1.8 mg/dL (1.8-2.4) Test 08/20/19 05:48 Glucose (Fingerstick) 149 mg/dL (70-99) Results All relevant outside records, renal labs, imaging studies, telemetry/EKG's were reviewed. VERENA KENT MD August 20, 2019 12:04
[2019-08-20] MEDS: ONDANSETRON PF 4 MG/2 ML VIAL. IV PRN (13:05)
[2019-08-20] MEDS: HYDROmorphone 12mg/30ml PCA 30 ML IV PRN (16:08)
[2019-08-20] MEDS ORDERED: [UNRECOGNIZED DRUG - OTHER] IV SCH ×9 (22:00)
[2019-08-20] MEDS ORDERED: AMINO ACID IV SCH ×9 (22:00)
[2019-08-20] MEDS ORDERED: TOTAL PARENTERAL NUTRITION IV SCH ×9 (22:00)
[2019-08-20] MEDS ORDERED: DEXTROSE 70% IV SCH ×9 (22:00)
[2019-08-21] VITALS (20 sets, daily range): BP systolic 75–181; BP diastolic 36–85
[2019-08-21] MEDS: DEXMEDETOMIDINE 400 MCG in IV NORMAL SALINE 100ML 96 ML IV PRN ×4 (02:25→20:15)
[2019-08-21] MEDS: INSULIN LISPRO 300 UNITS/3 ML VIAL. SQ SCH ×4 (05:27→18:00)
[2019-08-21] MEDS: MEROPENEM 1 GM in IV NORMAL SALINE 100ML 100 ML IV SCH ×3 (05:27→21:30)
[2019-08-21 05:46] LABS: BASO % 0 % (0-3); EOS # 0.2 x10^3/uL (0.0-0.7); EOS % 2 % (0-3); HEMATOCRIT 22.8 % (36.0-47.0); HEMOGLOBIN 7.1 g/dL (12.0-15.5); LYMPH # 1.4 x10^3/uL (1.0-4.8); LYMPH % 14 % (24-48); MEAN CORPUSCULAR HEMOGLOBIN 29 pg (25-35); MEAN CORPUSCULAR HGB CONC 31 g/dL (31-37); MEAN CORPUSCULAR VOLUME 93 fL (79-100); MONO # 0.5 x10^3/uL (0.0-1.1); MONO % 5 % (0-9); NEUT # 7.7 x10^3/uL (1.8-7.7); NEUT % 79 % (31-73); PLATELET COUNT 408 x10^3/uL (140-400); RED BLOOD COUNT 2.44 x10^6/uL (3.50-5.40); RED CELL DISTRIBUTION WIDTH 18.1 % (11.5-14.5); WHITE BLOOD COUNT 9.7 x10^3/uL (4.0-11.0)
[2019-08-21 05:54] LABS: CALCIUM 8.7 mg/dL (8.5-10.1); GFR 58.9; POTASSIUM 4.3 mmol/L (3.5-5.1)
--- NOTE | 2019-08-21 06:56 | PDOC ---
Infectious Disease Note Subjective: Subjective Patient resting comfortably No fever last 24-hour on trach with vent Discussed with RN Vital Signs: Vital Signs Vital Signs Date Time Temp Pulse Resp B/P (MAP) Pulse Ox O2 Delivery O2 Flow Rate FiO2 08/21/19 06:00 103 25 115/65 (82) 100 Tracheal Collar 08/21/19 04:00 97.7 97.7 08/20/19 16:38 10.0 Physical Exam: PHYSICAL EXAM GENERAL: Propped up in bed, sedated weak appearing HEENT: Pupils equal, + NGT, oral cavity dry NECK: Trach/vent LUNGS: rhonchi HEART: S1, S2, regular ABDOMEN: Distended, hypoactive BS, drain placement (08/14 ) : Lind (08/01) EXTREMITIES: Generalized edema, no cyanosis, SCDs bilaterally DERMATOLOGIC: Warm and dry. No generalized rash. CENTRAL NERVOUS SYSTEM: Extremely weak, nods to few simple questions PICC line in place August 18, 2019 clean HDC has been removed LIJ removed Medications: Inpatient Meds: Current Medications Medications (Trade) Dose Ordered Sig/Yvon Start Time Stop Time Status Last Admin Dose Admin Acetaminophen (Tylenol Supp) 650 mg PRN Q6HRS PRN 07/12/19 10:30 08/15/19 00:32 650 MG Acetaminophen (Tylenol) 650 mg PRN Q6HRS PRN 07/09/19 03:36 08/04/19 19:56 650 MG Albumin Human 200 ml @ 200 mls/hr 1X PRN PRN 08/09/19 08:00 08/09/19 13:59 DC 08/09/19 08:40 200 MLS/HR Albuterol Sulfate (Ventolin Neb Soln) 2.5 mg 1X ONCE 07/05/19 22:30 07/05/19 22:31 DC 07/06/19 00:56 2.5 MG Alteplase, Recombinant (Cathflo For Central Catheter Clearance) 1 mg 1X ONCE 08/12/19 10:45 08/12/19 10:46 DC 08/12/19 11:44 1 MG Amino Acids/ Glycerin/ Electrolytes 1,000 ml @ 75 mls/hr [id number] 08/08/19 21:15 UNV Artificial Tears (Artificial Tears) 1 drop PRN Q15MIN PRN 08/17/19 05:30 08/19/19 12:34 1 DROP Atenolol (Tenormin) 100 mg DAILY 07/05/19 09:00 07/04/19 20:08 DC Atropine Sulfate (ATROPINE 0.5mg SYRINGE) 0.5 mg PRN Q5MIN PRN 07/21/19 08:15 Benzocaine (Hurricaine One) 1 spray 1X ONCE 07/08/19 14:30 07/08/19 14:31 DC 07/08/19 16:38 1 SPRAY Bisacodyl (Dulcolax Supp) 10 mg STK-MED ONCE 08/15/19 10:59 08/15/19 10:59 DC Bumetanide (Bumex) 2 mg [id number] 08/16/19 14:00 08/20/19 14:10 DC 08/19/19 13:50 2 MG Bupivacaine HCl/ Epinephrine Bitart (Sensorcain-Epi 0.5%-1:580790 Mpf) 30 ml STK-MED ONCE 08/15/19 10:58 08/15/19 10:58 DC 08/15/19 12:01 7 ML Calcium Carbonate/ Glycine (Tums) 500 mg PRN [id number] PRN 07/06/19 17:45 Calcium Chloride 1000 mg/Sodium Chloride 110 ml @ 220 mls/hr 1X ONCE 07/05/19 22:30 07/05/19 22:59 DC 07/05/19 22:11 220 MLS/HR Calcium Chloride 3000 mg/Sodium Chloride 1,030 ml @ 50 mls/hr [id number] 07/07/19 08:00 07/09/19 15:23 DC 07/09/19 02:17 50 MLS/HR Calcium Gluconate (Calcium Gluconate) 2,000 mg 1X ONCE 07/07/19 02:15 07/07/19 02:16 DC 07/07/19 02:19 2,000 MG Calcium Gluconate 1000 mg/Sodium Chloride 110 ml @ 220 mls/hr 1X ONCE 07/06/19 03:30 07/06/19 03:59 DC 07/06/19 03:21 220 MLS/HR Calcium Gluconate 2000 mg/Sodium Chloride 120 ml @ 220 mls/hr 1X ONCE 07/06/19 07:30 07/06/19 08:02 DC 07/06/19 09:05 220 MLS/HR Cefepime HCl (Maxipime) 2 gm Q12HR 07/13/19 09:00 07/27/19 09:58 DC 07/26/19 20:56 2 GM Cellulose (Surgicel Fibrillar 1x2) 1 each STK-MED ONCE 07/25/19 11:00 07/25/19 11:01 DC Cellulose (Surgicel Hemostat 2x14) 1 each STK-MED ONCE 08/15/19 10:58 08/15/19 10:59 DC Cellulose (Surgicel Hemostat 4x8) 1 each STK-MED ONCE 08/15/19 10:58 08/15/19 10:59 DC Cyclobenzaprine HCl (Flexeril) 10 mg PRN Q6HRS PRN 08/18/19 10:45 Daptomycin 430 mg/ Sodium Chloride 50 ml @ 100 mls/hr Q24H 08/13/19 13:00 08/18/19 20:58 DC 08/18/19 13:00 100 MLS/HR Daptomycin 500 mg/ Sodium Chloride 50 ml @ 100 mls/hr Q48H 07/13/19 08:30 07/29/19 10:07 DC 07/29/19 09:57 100 MLS/HR Dexamethasone Sodium Phosphate (Decadron) 4 mg STK-MED ONCE 08/15/19 10:56 08/15/19 10:57 DC Dexmedetomidine HCl 400 mcg/ Sodium Chloride 100 ml @ 0 mls/hr CONT PRN 07/21/19 08:15 08/21/19 05:29 16.7 MLS/HR Dextrose (Dextrose 50%-Water Syringe) 12.5 gm PRN Q15MIN PRN 07/04/19 09:30 Digoxin (Lanoxin) 125 mcg 1X ONCE 07/07/19 18:00 07/07/19 18:01 DC 07/07/19 17:10 125 MCG Diphenhydramine HCl (Benadryl) 25 mg 1X PRN PRN 08/12/19 15:45 08/13/19 15:44 DC Enoxaparin Sodium (Lovenox 100mg Syringe) 100 mg Q12HR 08/09/19 21:00 UNV Etomidate (Amidate) 8 mg 1X ONCE 07/11/19 08:30 07/11/19 08:31 DC 07/11/19 08:33 8 MG Fentanyl Citrate (Fentanyl 2ml Vial) 100 mcg STK-MED ONCE 08/15/19 10:56 08/15/19 10:57 DC Furosemide (Lasix) 40 mg 1X ONCE 08/01/19 14:30 08/01/19 14:31 DC 08/01/19 14:39 40 MG Heparin Sodium (Porcine) (Hep Lock Adult) 500 unit STK-MED ONCE 07/26/19 09:29 07/26/19 09:30 DC Heparin Sodium (Porcine) (Heparin Sodium) 5,000 unit Q12HR 08/15/19 21:00 08/20/19 21:54 5,000 UNIT Heparin Sodium (Porcine) 1000 unit/Sodium Chloride 1,001 ml @ 1,001 mls/hr 1X ONCE 08/15/19 12:00 08/15/19 12:59 DC Hydromorphone HCl (Dilaudid Standard FOUNDRY HAND) 12 mg STK-MED ONCE 08/18/19 13:47 08/19/19 11:03 DC Hydromorphone HCl (Dilaudid) 1 mg PRN Q3HRS PRN 07/05/19 12:00 07/19/19 00:25 DC 07/11/19 05:13 1 MG Info (CONTRAST GIVEN -- Rx MONITORING) 1 each PRN DAILY PRN 07/18/19 11:45 07/20/19 11:44 DC Info (Icu Electrolyte Protocol) 1 ea CONT PRN PRN 07/17/19 13:15 Info (PHARMACY MONITORING -- do not chart) 1 each PRN DAILY PRN 08/12/19 15:45 Info (Tpn Per Pharmacy) 1 each PRN DAILY PRN 07/06/19 12:30 UNV Insulin Human Lispro (HumaLOG) 0-9 UNITS Q6HRS 07/04/19 09:30 08/18/19 17:29 4 UNITS Insulin Human Regular (HumuLIN R VIAL) 5 unit 1X ONCE 07/05/19 22:30 07/05/19 22:31 DC 07/05/19 22:14 5 UNIT Iohexol (Omnipaque 240 Mg/ml) 30 ml 1X ONCE 07/18/19 11:30 07/18/19 11:33 DC 07/18/19 11:30 30 ML Iohexol (Omnipaque 300 Mg/ml) 50 ml STK-MED ONCE 08/15/19 10:58 08/15/19 10:59 DC Iohexol (Omnipaque 350 Mg/ml) 90 ml 1X ONCE 07/04/19 03:30 07/04/19 03:31 DC 07/04/19 03:25 90 ML Ketorolac Tromethamine (Toradol 30mg Vial) 30 mg 1X ONCE 07/04/19 03:00 07/04/19 03:01 DC 07/04/19 02:54 30 MG Lidocaine HCl (Buffered Lidocaine 1%) 6 ml 1X ONCE 08/03/19 13:30 08/03/19 13:31 DC 08/03/19 13:45 9 ML Lidocaine HCl (Glydo (Lidocaine) Jelly) 1 ramu 1X ONCE 07/08/19 14:30 07/08/19 14:31 DC 07/08/19 16:38 1 RAMU Lidocaine HCl (Xylocaine-Mpf 1% 2ml Vial) 2 ml PRN 1X PRN 08/15/19 07:00 08/16/19 06:59 DC Linezolid/Dextrose 300 ml @ 300 mls/hr Q12HR 07/29/19 11:00 08/09/19 08:10 DC 08/08/19 20:40 300 MLS/HR Lorazepam (Ativan Inj) 1 mg PRN Q4HRS PRN 07/07/19 09:00 08/05/19 09:19 DC 08/05/19 03:51 1 MG Magnesium Sulfate 50 ml @ 25 mls/hr 1X ONCE 08/20/19 10:30 08/20/19 12:29 DC 08/20/19 10:34 25 MLS/HR Meropenem 1 gm/ Sodium Chloride 100 ml @ 200 mls/hr Q8HRS 08/16/19 14:00 08/21/19 05:27 200 MLS/HR Meropenem 500 mg/ Sodium Chloride 50 ml @ 100 mls/hr Q12H 07/27/19 10:00 08/16/19 12:37 DC 08/16/19 10:45 100 MLS/HR Metoprolol Tartrate (Lopressor Vial) 5 mg Q6HRS 07/05/19 10:15 07/16/19 08:48 DC 07/14/19 00:12 5 MG Metronidazole 100 ml @ 100 mls/hr Q8HRS 08/02/19 10:00 08/09/19 08:10 DC 08/09/19 06:04 100 MLS/HR Micafungin Sodium 100 mg/Dextrose 100 ml @ 100 mls/hr Q24H 07/11/19 09:00 08/18/19 20:58 DC 08/18/19 08:18 100 MLS/HR Midazolam HCl (Versed) 5 mg 1X ONCE 07/11/19 08:30 07/11/19 08:31 DC Midazolam HCl 100 mg/Sodium Chloride 100 ml @ 7 mls/hr CONT PRN 07/16/19 16:00 07/27/19 15:35 7 MLS/HR Midazolam HCl 50 mg/Sodium Chloride 50 ml @ 0 mls/hr CONT PRN 07/11/19 08:15 07/16/19 15:59 DC 07/14/19 22:39 7 MLS/HR Morphine Sulfate (Morphine Sulfate) 2 mg PRN Q2HR PRN 07/04/19 05:00 07/05/19 14:15 DC 07/05/19 12:26 2 MG Multi-Ingred Cream/Lotion/Oil/ Oint (Artificial Tears Eye Ointment) 1 ramu PRN Q1HR PRN 07/13/19 17:30 08/01/19 08:19 1 RAMU Naloxone HCl (Narcan) 0.4 mg PRN Q2MIN PRN 08/15/19 14:30 UNV Norepinephrine Bitartrate 8 mg/ Dextrose 258 ml @ 17.299 mls/ hr CONT PRN 07/05/19 15:30 08/05/19 09:19 DC 08/02/19 12:48 20.9 MLS/HR Ondansetron HCl (Zofran) 4 mg STK-MED ONCE 08/15/19 10:56 08/15/19 10:57 DC Pantoprazole Sodium (PROTONIX VIAL for IV PUSH) 40 mg DAILYAC 07/04/19 11:30 08/20/19 08:20 40 MG Phenylephrine HCl (PHENYLEPHRINE in 0.9% NACL PF) 1 mg STK-MED ONCE 08/15/19 12:34 08/15/19 12:34 DC Piperacillin Sod/ Tazobactam Sod 4.5 gm/Sodium Chloride 100 ml @ 200 mls/hr 1X ONCE 07/04/19 06:00 07/04/19 06:29 DC 07/04/19 05:44 200 MLS/HR Potassium Chloride 15 meq/ Bicarbonate Dialysis Soln w/ out KCl 5,007.5 ml @ 1,000 mls/ hr Q5H1M 07/17/19 20:00 07/21/19 13:08 DC 07/20/19 18:14 1,000 MLS/HR Potassium Chloride 20 meq/ Bicarbonate Dialysis Soln w/ out KCl 5,010 ml @ 1,000 mls/hr Q5H1M 07/13/19 16:00 07/17/19 19:59 DC 07/17/19 14:54 1,000 MLS/HR Potassium Chloride 75 meq/ Magnesium Sulfate 20 meq/Calcium Gluconate 10 meq/ Multivitamins 10 ml/Chromium/ Copper/Manganese/ Seleni/Zn 0.5 ml/ Insulin Human Regular 30 unit/ Total Parenteral Nutrition/Amino Acids/Dextrose/ Fat Emulsion Intravenous 1,920 ml @ 80 mls/hr TPN CONT 08/20/19 22:00 08/21/19 21:59 08/20/19 21:51 80 MLS/HR Potassium Chloride/Water 100 ml @ 100 mls/hr Q1H 08/20/19 07:00 08/20/19 10:59 DC 08/20/19 13:05 100 MLS/HR Potassium Phosphate 20 mmol/ Sodium Chloride 106.6667 ml @ 51.667 m... 1X ONCE 07/13/19 13:00 07/13/19 15:03 DC 07/13/19 12:51 51.667 MLS/HR Potassium Acetate 30 meq/Magnesium Sulfate 20 meq/ Calcium Gluconate 10 meq/ Multivitamins 10 ml/Chromium/ Copper/Manganese/ Seleni/Zn 0.5 ml/ Insulin Human Regular 30 unit/ Potassium Chloride 30 meq/ Total Parenteral Nutrition/Amino Acids/Dextrose/ Fat Emulsion Intravenous 1,920 ml @ 80 mls/hr TPN CONT 08/19/19 22:00 08/20/19 21:59 DC 08/19/19 22:34 80 MLS/HR Potassium Acetate 55 meq/Magnesium Sulfate 20 meq/ Calcium Gluconate 10 meq/ Multivitamins 10 ml/Chromium/ Copper/Manganese/ Seleni/Zn 0.5 ml/ Insulin Human Regular 30 unit/ Total Parenteral Nutrition/Amino Acids/Dextrose/ Fat Emulsion Intravenous 1,920 ml @ 80 mls/hr TPN CONT 08/18/19 22:00 08/19/19 21:59 DC 08/19/19 01:00 80 MLS/HR Potassium Acetate 55 meq/Magnesium Sulfate 20 meq/ Calcium Gluconate 10 meq/ Multivitamins 10 ml/Chromium/ Copper/Manganese/ Seleni/Zn 0.5 ml/ Insulin Human Regular 35 unit/ Total Parenteral Nutrition/Amino Acids/Dextrose/ Fat Emulsion Intravenous 1,920 ml @ 80 mls/hr TPN CONT 08/16/19 22:00 08/17/19 21:59 DC 08/16/19 22:02 80 MLS/HR Potassium Acetate 65 meq/Magnesium Sulfate 20 meq/ Calcium Gluconate 10 meq/ Multivitamins 10 ml/Chromium/ Copper/Manganese/ Seleni/Zn 0.5 ml/ Insulin Human Regular 30 unit/ Total Parenteral Nutrition/Amino Acids/Dextrose/ Fat Emulsion Intravenous 1,920 ml @ 80 mls/hr TPN CONT 08/17/19 22:00 08/18/19 21:59 DC 08/17/19 22:22 80 MLS/HR Prochlorperazine Edisylate (Compazine) 5 mg PACU PRN PRN 08/15/19 07:00 08/16/19 06:59 DC Propofol 20 ml @ As Directed STK-MED ONCE 08/15/19 12:26 08/15/19 12:27 DC Ringer's Solution 1,000 ml @ 30 mls/hr Q24H 08/15/19 07:00 08/15/19 18:59 DC Rocuronium Tolstoy (Zemuron) 50 mg STK-MED ONCE 08/15/19 10:56 08/15/19 10:57 DC Sevoflurane (Ultane) 60 ml STK-MED ONCE 08/15/19 12:26 08/15/19 12:27 DC Sodium Bicarbonate 50 meq/Sodium Chloride 1,050 ml @ 75 mls/hr Q14H 07/06/19 07:30 07/11/19 10:28 DC 07/10/19 21:10 75 MLS/HR Sodium Acetate 50 meq/Potassium Acetate 55 meq/ Magnesium Sulfate 20 meq/Calcium Gluconate 10 meq/ Multivitamins 10 ml/Chromium/ Copper/Manganese/ Seleni/Zn 0.5 ml/ Insulin Human Regular 35 unit/ Total Parenteral Nutrition/Amino Acids/Dextrose/ Fat Emulsion Intravenous 1,800 ml @ 75 mls/hr TPN CONT 08/13/19 22:00 08/14/19 21:59 DC 08/13/19 22:03 75 MLS/HR Sodium Chloride 1,000 ml @ 25 mls/hr Q24H 08/15/19 14:30 UNV Sodium Chloride (Normal Saline Flush) 3 ml QSHIFT PRN 08/15/19 13:45 Sodium Chloride 90 meq/Calcium Gluconate 10 meq/ Multivitamins 10 ml/Chromium/ Copper/Manganese/ Seleni/Zn 0.5 ml/ Total Parenteral Nutrition/Amino Acids/Dextrose/ Fat Emulsion Intravenous 1,512 ml @ 63 mls/hr TPN CONT 07/06/19 22:00 07/07/19 21:59 DC 07/06/19 22:06 63 MLS/HR Sodium Chloride 90 meq/Calcium Gluconate 10 meq/ Multivitamins 10 ml/Chromium/ Copper/Manganese/ Seleni/Zn 1 ml/ Total Parenteral Nutrition/Amino Acids/Dextrose/ Fat Emulsion Intravenous 55.005 ml @ 2.292 mls/hr TPN CONT 07/06/19 22:00 07/06/19 12:33 DC Sodium Chloride 90 meq/Magnesium Sulfate 10 meq/ Calcium Gluconate 20 meq/ Multivitamins 10 ml/Chromium/ Copper/Manganese/ Seleni/Zn 0.5 ml/ Total Parenteral Nutrition/Amino Acids/Dextrose/ Fat Emulsion Intravenous 1,512 ml @ 63 mls/hr TPN CONT 07/07/19 22:00 07/08/19 21:59 DC 07/07/19 22:25 63 MLS/HR Sodium Chloride 90 meq/Magnesium Sulfate 12 meq/ Calcium Gluconate 15 meq/ Multivitamins 10 ml/Chromium/ Copper/Manganese/ Seleni/Zn 0.5 ml/ Insulin Human Regular 25 unit/ Total Parenteral Nutrition/Amino Acids/Dextrose/ Fat Emulsion Intravenous 1,400 ml @ 58.333 mls/ hr TPN CONT 07/27/19 22:00 07/28/19 21:59 DC 07/27/19 21:41 58.333 MLS/HR Sodium Chloride 90 meq/Potassium Chloride 15 meq/ Magnesium Sulfate 12 meq/Calcium Gluconate 15 meq/ Multivitamins 10 ml/Chromium/ Copper/Manganese/ Seleni/Zn 0.5 ml/ Insulin Human Regular 25 unit/ Total Parenteral Nutrition/Amino Acids/Dextrose/ Fat Emulsion Intravenous 1,400 ml @ 58.333 mls/ hr TPN CONT 07/26/19 22:00 07/27/19 21:59 DC 07/26/19 22:13 58.333 MLS/HR Sodium Chloride 90 meq/Potassium Chloride 15 meq/ Potassium Phosphate 10 mmol/ Magnesium Sulfate 8 meq/Calcium Gluconate 15 meq/ Multivitamins 10 ml/Chromium/ Copper/Manganese/ Seleni/Zn 0.5 ml/ Insulin Human Regular 25 unit/ Total Parenteral Nutrition/Amino Acids/Dextrose/ Fat Emulsion Intravenous 1,400 ml @ 58.333 mls/ hr TPN CONT 07/24/19 22:00 07/25/19 21:59 DC 07/24/19 21:20 58.333 MLS/HR Sodium Chloride 90 meq/Potassium Chloride 15 meq/ Potassium Phosphate 10 mmol/ Magnesium Sulfate 10 meq/Calcium Gluconate 20 meq/ Multivitamins 10 ml/Chromium/ Copper/Manganese/ Seleni/Zn 0.5 ml/ Total Parenteral Nutrition/Amino Acids/Dextrose/ Fat Emulsion Intravenous 1,400 ml @ 58.333 mls/ hr TPN CONT 07/11/19 22:00 07/12/19 21:59 DC 07/11/19 21:42 58.333 MLS/HR Sodium Chloride 90 meq/Potassium Chloride 15 meq/ Potassium Phosphate 10 mmol/ Magnesium Sulfate 12 meq/Calcium Gluconate 15 meq/ Multivitamins 10 ml/Chromium/ Copper/Manganese/ Seleni/Zn 0.5 ml/ Insulin Human Regular 25 unit/ Total Parenteral Nutrition/Amino Acids/Dextrose/ Fat Emulsion Intravenous 1,400 ml @ 58.333 mls/ hr TPN CONT 07/25/19 22:00 07/26/19 21:59 DC 07/25/19 22:24 58.333 MLS/HR Sodium Chloride 90 meq/Potassium Chloride 15 meq/ Potassium Phosphate 15 mmol/ Magnesium Sulfate 10 meq/Calcium Gluconate 15 meq/ Multivitamins 10 ml/Chromium/ Copper/Manganese/ Seleni/Zn 0.5 ml/ Total Parenteral Nutrition/Amino Acids/Dextrose/ Fat Emulsion Intravenous 1,400 ml @ 58.333 mls/ hr TPN CONT 07/12/19 22:00 07/13/19 21:59 DC 07/12/19 22:17 58.333 MLS/HR Sodium Chloride 90 meq/Potassium Chloride 15 meq/ Potassium Phosphate 15 mmol/ Magnesium Sulfate 10 meq/Calcium Gluconate 20 meq/ Multivitamins 10 ml/Chromium/ Copper/Manganese/ Seleni/Zn 0.5 ml/ Total Parenteral Nutrition/Amino Acids/Dextrose/ Fat Emulsion Intravenous 1,200 ml @ 50 mls/hr TPN CONT 07/10/19 22:00 07/10/19 14:17 DC Sodium Chloride 90 meq/Potassium Chloride 15 meq/ Potassium Phosphate 18 mmol/ Magnesium Sulfate 8 meq/Calcium Gluconate 15 meq/ Multivitamins 10 ml/Chromium/ Copper/Manganese/ Seleni/Zn 0.5 ml/ Insulin Human Regular 10 unit/ Total Parenteral Nutrition/Amino Acids/Dextrose/ Fat Emulsion Intravenous 1,400 ml @ 58.333 mls/ hr TPN CONT 07/15/19 22:00 07/16/19 21:59 DC 07/15/19 21:43 58.333 MLS/HR Sodium Chloride 90 meq/Potassium Chloride 15 meq/ Potassium Phosphate 18 mmol/ Magnesium Sulfate 8 meq/Calcium Gluconate 15 meq/ Multivitamins 10 ml/Chromium/ Copper/Manganese/ Seleni/Zn 0.5 ml/ Insulin Human Regular 15 unit/ Total Parenteral Nutrition/Amino Acids/Dextrose/ Fat Emulsion Intravenous 1,400 ml @ 58.333 mls/ hr TPN CONT 07/18/19 22:00 07/19/19 21:59 DC 07/18/19 21:47 58.333 MLS/HR Sodium Chloride 90 meq/Potassium Chloride 15 meq/ Potassium Phosphate 18 mmol/ Magnesium Sulfate 8 meq/Calcium Gluconate 15 meq/ Multivitamins 10 ml/Chromium/ Copper/Manganese/ Seleni/Zn 0.5 ml/ Insulin Human Regular 20 unit/ Total Parenteral Nutrition/Amino Acids/Dextrose/ Fat Emulsion Intravenous 1,400 ml @ 58.333 mls/ hr TPN CONT 07/21/19 22:00 07/22/19 21:59 DC 07/21/19 22:45 58.333 MLS/HR Sodium Chloride 90 meq/Potassium Chloride 15 meq/ Potassium Phosphate 18 mmol/ Magnesium Sulfate 8 meq/Calcium Gluconate 15 meq/ Multivitamins 10 ml/Chromium/ Copper/Manganese/ Seleni/Zn 0.5 ml/ Total Parenteral Nutrition/Amino Acids/Dextrose/ Fat Emulsion Intravenous 1,400 ml @ 58.333 mls/ hr TPN CONT 07/14/19 22:00 07/15/19 21:59 DC 07/14/19 22:00 58.333 MLS/HR Sodium Chloride 90 meq/Potassium Phosphate 15 mmol/ Magnesium Sulfate 12 meq/Calcium Gluconate 15 meq/ Multivitamins 10 ml/Chromium/ Copper/Manganese/ Seleni/Zn 0.5 ml/ Insulin Human Regular 30 unit/ Total Parenteral Nutrition/Amino Acids/Dextrose/ Fat Emulsion Intravenous 1,400 ml @ 58.333 mls/ hr TPN CONT 07/29/19 22:00 07/30/19 21:59 DC 07/29/19 21:49 58.333 MLS/HR Sodium Chloride 90 meq/Potassium Phosphate 15 mmol/ Magnesium Sulfate 12 meq/Calcium Gluconate 15 meq/ Multivitamins 10 ml/Chromium/ Copper/Manganese/ Seleni/Zn 0.5 ml/ Insulin Human Regular 40 unit/ Total Parenteral Nutrition/Amino Acids/Dextrose/ Fat Emulsion Intravenous 1,400 ml @ 58.333 mls/ hr TPN CONT 07/30/19 22:00 07/31/19 21:59 DC 07/30/19 21:21 58.333 MLS/HR Sodium Chloride 90 meq/Potassium Phosphate 19 mmol/ Magnesium Sulfate 12 meq/Calcium Gluconate 15 meq/ Multivitamins 10 ml/Chromium/ Copper/Manganese/ Seleni/Zn 0.5 ml/ Insulin Human Regular 40 unit/ Total Parenteral Nutrition/Amino Acids/Dextrose/ Fat Emulsion Intravenous 1,400 ml @ 58.333 mls/ hr TPN CONT 07/31/19 22:00 08/01/19 21:59 DC 07/31/19 21:54 58.333 MLS/HR Sodium Chloride 90 meq/Potassium Phosphate 5 mmol/ Magnesium Sulfate 12 meq/Calcium Gluconate 15 meq/ Multivitamins 10 ml/Chromium/ Copper/Manganese/ Seleni/Zn 0.5 ml/ Insulin Human Regular 30 unit/ Total Parenteral Nutrition/Amino Acids/Dextrose/ Fat Emulsion Intravenous 1,400 ml @ 58.333 mls/ hr TPN CONT 07/28/19 22:00 07/29/19 21:59 DC 07/28/19 22:08 58.333 MLS/HR Sodium Chloride 100 meq/Potassium Chloride 40 meq/ Magnesium Sulfate 15 meq/Calcium Gluconate 15 meq/ Multivitamins 10 ml/Chromium/ Copper/Manganese/ Seleni/Zn 0.5 ml/ Insulin Human Regular 35 unit/ Total Parenteral Nutrition/Amino Acids/Dextrose/ Fat Emulsion Intravenous 1,400 ml @ 58.333 mls/ hr TPN CONT 08/07/19 22:00 08/08/19 21:59 DC 08/07/19 22:46 58.333 MLS/HR Sodium Chloride 100 meq/Potassium Chloride 40 meq/ Magnesium Sulfate 20 meq/Calcium Gluconate 10 meq/ Multivitamins 10 ml/Chromium/ Copper/Manganese/ Seleni/Zn 0.5 ml/ Insulin Human Regular 35 unit/ Total Parenteral Nutrition/Amino Acids/Dextrose/ Fat Emulsion Intravenous 1,400 ml @ 58.333 mls/ hr TPN CONT 08/11/19 22:00 08/12/19 21:59 DC 08/12/19 00:06 58.333 MLS/HR Sodium Chloride 100 meq/Potassium Chloride 40 meq/ Magnesium Sulfate 20 meq/Calcium Gluconate 15 meq/ Multivitamins 10 ml/Chromium/ Copper/Manganese/ Seleni/Zn 0.5 ml/ Insulin Human Regular 35 unit/ Total Parenteral Nutrition/Amino Acids/Dextrose/ Fat Emulsion Intravenous 1,400 ml @ 58.333 mls/ hr TPN CONT 08/10/19 22:00 08/11/19 21:59 DC 08/10/19 22:27 58.333 MLS/HR Sodium Chloride 100 meq/Potassium Phosphate 10 mmol/ Magnesium Sulfate 12 meq/Calcium Gluconate 15 meq/ Multivitamins 10 ml/Chromium/ Copper/Manganese/ Seleni/Zn 0.5 ml/ Insulin Human Regular 35 unit/ Potassium Chloride 20 meq/ Total Parenteral Nutrition/Amino Acids/Dextrose/ Fat Emulsion Intravenous 1,400 ml @ 58.333 mls/ hr TPN CONT 08/04/19 22:00 08/05/19 21:59 DC 08/04/19 22:10 58.333 MLS/HR Sodium Chloride 100 meq/Potassium Phosphate 19 mmol/ Magnesium Sulfate 12 meq/Calcium Gluconate 15 meq/ Multivitamins 10 ml/Chromium/ Copper/Manganese/ Seleni/Zn 0.5 ml/ Insulin Human Regular 40 unit/ Potassium Chloride 20 meq/ Total Parenteral Nutrition/Amino Acids/Dextrose/ Fat Emulsion Intravenous 1,400 ml @ 58.333 mls/ hr TPN CONT 08/03/19 22:00 08/04/19 21:59 DC 08/03/19 21:20 58.333 MLS/HR Sodium Chloride 100 meq/Potassium Phosphate 5 mmol/ Magnesium Sulfate 12 meq/Calcium Gluconate 15 meq/ Multivitamins 10 ml/Chromium/ Copper/Manganese/ Seleni/Zn 0.5 ml/ Insulin Human Regular 35 unit/ Potassium Chloride 20 meq/ Total Parenteral Nutrition/Amino Acids/Dextrose/ Fat Emulsion Intravenous 1,400 ml @ 58.333 mls/ hr TPN CONT 08/05/19 22:00 08/06/19 21:59 DC 08/05/19 22:59 58.333 MLS/HR Succinylcholine Chloride (Anectine) 120 mg 1X ONCE 07/11/19 08:30 07/11/19 08:31 DC 07/11/19 08:34 120 MG Labs: Lab Laboratory Tests Test 08/20/19 13:34 08/20/19 18:06 08/21/19 00:03 08/21/19 05:25 Glucose (Fingerstick) 146 mg/dL (70-99) 135 mg/dL (70-99) 122 mg/dL (70-99) 113 mg/dL (70-99) Test 08/21/19 05:30 White Blood Count 9.7 x10^3/uL (4.0-11.0) Red Blood Count 2.44 x10^6/uL (3.50-5.40) Hemoglobin 7.1 g/dL (12.0-15.5) Hematocrit 22.8 % (36.0-47.0) Mean Corpuscular Volume 93 fL (79-100) Mean Corpuscular Hemoglobin 29 pg (25-35) Mean Corpuscular Hemoglobin Concent 31 g/dL (31-37) Red Cell Distribution Width 18.1 % (11.5-14.5) Platelet Count 408 x10^3/uL (140-400) Neutrophils (%) (Auto) 79 % (31-73) Lymphocytes (%) (Auto) 14 % (24-48) Monocytes (%) (Auto) 5 % (0-9) Eosinophils (%) (Auto) 2 % (0-3) Basophils (%) (Auto) 0 % (0-3) Neutrophils # (Auto) 7.7 x10^3/uL (1.8-7.7) Lymphocytes # (Auto) 1.4 x10^3/uL (1.0-4.8) Monocytes # (Auto) 0.5 x10^3/uL (0.0-1.1) Eosinophils # (Auto) 0.2 x10^3/uL (0.0-0.7) Basophils # (Auto) 0.0 x10^3/uL (0.0-0.2) Sodium Level 153 mmol/L (136-145) Potassium Level 4.3 mmol/L (3.5-5.1) Chloride Level 114 mmol/L (98-107) Carbon Dioxide Level 38 mmol/L (21-32) Anion Gap 1 (6-14) Blood Urea Nitrogen 47 mg/dL (7-20) Creatinine 1.0 mg/dL (0.6-1.0) Estimated GFR (Cockcroft-Gault) 58.9 Glucose Level 125 mg/dL (70-99) Calcium Level 8.7 mg/dL (8.5-10.1) Objective: Assessment: Fever intermittent could be from underlying pancreatitis, pattern improving Acute pancreatitis with persistent necrosis CT a/p 07/27 Increased ascites. 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 Leucocytosis improving JUANA,Hyperkalemia, Metabolic acidosis off dialysis Acute hypoxic resp failure ,bilateral pleural effusion and atelectasis hypocalcemia Prediabetes HTN s/p trach Plan: Plan of Care cont merrem (07/26), off micafungin and daptomycin Follow-up Intra-Op cultures and lab Maintain aspiration precaution PT and OT as tolerated Continue supportive care YUNIOR JONES MD August 21, 2019 06:56
--- NOTE | 2019-08-21 07:45 | PDOC ---
PULMONARY PROGRESS NOTES Subjective Patient intubated on 07/10 , s/p trach 4/6, remained off vent on PMV with trach shield. Appears in mild distress this am. ABG with worsening hypercapnia/ on RAYON CONER dilaudid Vitals Vital Signs Date Time Temp Pulse Resp B/P (MAP) Pulse Ox O2 Delivery O2 Flow Rate FiO2 08/21/19 06:00 103 25 115/65 (82) 100 Tracheal Collar 08/21/19 04:00 97.7 97.7 08/20/19 16:38 10.0 ROS: No Nausea, No Chest Pain, No Abdominal Pain, No Increase Cough General: Alert, Oriented X4, No acute distress HEENT: Other (nc at perrl nose clear nech trach site ok no lad no thyrom egaly) Lungs: Crackles Cardiovascular: S1, S2 Abdomen: Soft, Non-tender, Other (firm) Neuro Exam: Alert Extremities: Other (+3 generalized edema ) Skin: Warm, Dry Labs Laboratory Tests Test 08/19/19 12:20 08/19/19 17:31 08/19/19 23:34 08/20/19 05:45 Glucose (Fingerstick) 147 mg/dL (70-99) 140 mg/dL (70-99) 134 mg/dL (70-99) White Blood Count 9.7 x10^3/uL (4.0-11.0) Red Blood Count 2.46 x10^6/uL (3.50-5.40) Hemoglobin 7.2 g/dL (12.0-15.5) Hematocrit 22.4 % (36.0-47.0) Mean Corpuscular Volume 91 fL (79-100) Mean Corpuscular Hemoglobin 29 pg (25-35) Mean Corpuscular Hemoglobin Concent 32 g/dL (31-37) Red Cell Distribution Width 18.1 % (11.5-14.5) Platelet Count 419 x10^3/uL (140-400) Neutrophils (%) (Auto) 77 % (31-73) Lymphocytes (%) (Auto) 16 % (24-48) Monocytes (%) (Auto) 5 % (0-9) Eosinophils (%) (Auto) 2 % (0-3) Basophils (%) (Auto) 0 % (0-3) Neutrophils # (Auto) 7.4 x10^3/uL (1.8-7.7) Lymphocytes # (Auto) 1.5 x10^3/uL (1.0-4.8) Monocytes # (Auto) 0.4 x10^3/uL (0.0-1.1) Eosinophils # (Auto) 0.2 x10^3/uL (0.0-0.7) Basophils # (Auto) 0.0 x10^3/uL (0.0-0.2) Sodium Level 154 mmol/L (136-145) Potassium Level 2.9 mmol/L (3.5-5.1) Chloride Level 111 mmol/L (98-107) Carbon Dioxide Level 34 mmol/L (21-32) Anion Gap 9 (6-14) Blood Urea Nitrogen 45 mg/dL (7-20) Creatinine 1.0 mg/dL (0.6-1.0) Estimated GFR (Cockcroft-Gault) 58.9 Glucose Level 153 mg/dL (70-99) Calcium Level 8.6 mg/dL (8.5-10.1) Phosphorus Level 3.6 mg/dL (2.6-4.7) Magnesium Level 1.8 mg/dL (1.8-2.4) Test 08/20/19 05:48 08/20/19 13:34 08/20/19 18:06 08/21/19 00:03 Glucose (Fingerstick) 149 mg/dL (70-99) 146 mg/dL (70-99) 135 mg/dL (70-99) 122 mg/dL (70-99) Test 08/21/19 05:25 08/21/19 05:30 Glucose (Fingerstick) 113 mg/dL (70-99) White Blood Count 9.7 x10^3/uL (4.0-11.0) Red Blood Count 2.44 x10^6/uL (3.50-5.40) Hemoglobin 7.1 g/dL (12.0-15.5) Hematocrit 22.8 % (36.0-47.0) Mean Corpuscular Volume 93 fL (79-100) Mean Corpuscular Hemoglobin 29 pg (25-35) Mean Corpuscular Hemoglobin Concent 31 g/dL (31-37) Red Cell Distribution Width 18.1 % (11.5-14.5) Platelet Count 408 x10^3/uL (140-400) Neutrophils (%) (Auto) 79 % (31-73) Lymphocytes (%) (Auto) 14 % (24-48) Monocytes (%) (Auto) 5 % (0-9) Eosinophils (%) (Auto) 2 % (0-3) Basophils (%) (Auto) 0 % (0-3) Neutrophils # (Auto) 7.7 x10^3/uL (1.8-7.7) Lymphocytes # (Auto) 1.4 x10^3/uL (1.0-4.8) Monocytes # (Auto) 0.5 x10^3/uL (0.0-1.1) Eosinophils # (Auto) 0.2 x10^3/uL (0.0-0.7) Basophils # (Auto) 0.0 x10^3/uL (0.0-0.2) Sodium Level 153 mmol/L (136-145) Potassium Level 4.3 mmol/L (3.5-5.1) Chloride Level 114 mmol/L (98-107) Carbon Dioxide Level 38 mmol/L (21-32) Anion Gap 1 (6-14) Blood Urea Nitrogen 47 mg/dL (7-20) Creatinine 1.0 mg/dL (0.6-1.0) Estimated GFR (Cockcroft-Gault) 58.9 Glucose Level 125 mg/dL (70-99) Calcium Level 8.7 mg/dL (8.5-10.1) Laboratory Tests Test 08/20/19 13:34 08/20/19 18:06 08/21/19 00:03 08/21/19 05:25 Glucose (Fingerstick) 146 mg/dL (70-99) 135 mg/dL (70-99) 122 mg/dL (70-99) 113 mg/dL (70-99) Test 08/21/19 05:30 White Blood Count 9.7 x10^3/uL (4.0-11.0) Red Blood Count 2.44 x10^6/uL (3.50-5.40) Hemoglobin 7.1 g/dL (12.0-15.5) Hematocrit 22.8 % (36.0-47.0) Mean Corpuscular Volume 93 fL (79-100) Mean Corpuscular Hemoglobin 29 pg (25-35) Mean Corpuscular Hemoglobin Concent 31 g/dL (31-37) Red Cell Distribution Width 18.1 % (11.5-14.5) Platelet Count 408 x10^3/uL (140-400) Neutrophils (%) (Auto) 79 % (31-73) Lymphocytes (%) (Auto) 14 % (24-48) Monocytes (%) (Auto) 5 % (0-9) Eosinophils (%) (Auto) 2 % (0-3) Basophils (%) (Auto) 0 % (0-3) Neutrophils # (Auto) 7.7 x10^3/uL (1.8-7.7) Lymphocytes # (Auto) 1.4 x10^3/uL (1.0-4.8) Monocytes # (Auto) 0.5 x10^3/uL (0.0-1.1) Eosinophils # (Auto) 0.2 x10^3/uL (0.0-0.7) Basophils # (Auto) 0.0 x10^3/uL (0.0-0.2) Sodium Level 153 mmol/L (136-145) Potassium Level 4.3 mmol/L (3.5-5.1) Chloride Level 114 mmol/L (98-107) Carbon Dioxide Level 38 mmol/L (21-32) Anion Gap 1 (6-14) Blood Urea Nitrogen 47 mg/dL (7-20) Creatinine 1.0 mg/dL (0.6-1.0) Estimated GFR (Cockcroft-Gault) 58.9 Glucose Level 125 mg/dL (70-99) Calcium Level 8.7 mg/dL (8.5-10.1) Medications Active Scripts Medications Dose Route/Sig Max Daily Dose Days Date Category Bisoprolol Fumarate 5 Mg Tablet 10 Mg PO DAILY 07/04/19 Reported Impression . IMPRESSION: 1. Acute hypoxemic respiratory failure secondary to ARDS status post trach, 2. Gallstone pancreatitis 3. Severe metabolic acidosis.stable 4. Acute kidney injury-stable, ON HD-- continue to improve 5. Acute gallstone pancreatitis. 6. Hypoalbuminemia. 7. Moderate persistent effusions 8. Fever- Per ID, per surgery 9. Chronic anemia 10. Covid 19 testing negative 11. Moderate to large ascites-S/P paracentisis 12.S/P paracentisis with 4 liters removed on 08/03/19 Surgery note Operative Note: After obtaining informed consent, patient was taken to OR, induced under GETA and prepped in the usual fashion. 5 mm port placed umbilical and right mid abdomen, all under laparoscopic guidance. Large amount of ascites encountered and aspirated off. Fluid was clear with some whitish debris. Viscera was completely locked in with obliteration of all planes, preventing any significant exploration. Copious irrigation. Given patient's overall clinical improvement, favor against open procedure and a ttempt at cholecystectomy and/or necrosectomy, given high risk of complications. Cholecystectomy will need to be performed, but favor waiting 3 months. 19 KAYLIN drain placed and secured with 3 0 nylon. Skin repaired with 4 0 monocryl. Dressing placed. Patient tolerated procedure well and sent to PACU in stable condition. All counts correct. Wound class is 4. Plan . We will continue our efforts at weaning, Developed worsening hypercapnia this am due to dilaudid RAYON CONER. d/w RN / RT.resting on AC. reduce dilaudid RAYON CONER dose. re- start TS with PM . TS trials, 24 hrs as tolerated/ PM valve after reducing dilaudid dose precedex for anxiety, prn Follow surgery input Follow ID rec, abx per id Follow nephrology recs Nutritional support per surgery: continue TPN for nutrition DVT/GI PPX : heparin Sq/ protonix d/w RN/RT CODE:FULL VINAYAK LANDRUM MD August 21, 2019 07:44
[2019-08-21 08:00] LABS: BASE EXCESS COOX 6 mmol/L (-3-3); HCO3 COOX 34 mmol/L (21-28); METHEMOGLOBIN 0.5 % (0.0-1.9); OXYHEMOGLOBIN 96.8 %; PO2 COOX 123 mmHg (75-108); SAT O2 COOX 97 % (92-99)
[2019-08-21 08:01] LABS: PCO2 COOX 75 mmHg (35-46)
--- NOTE | 2019-08-21 09:00 | PDOC ---
PROGRESS NOTES Chief Complaint Chief Complaint Acute hypoxic Respiratory failure requiring mechanical ventilation (on vent since 07/10) Tracheostomy bilateral pleural effusions/pulm edema Sepsis Severe Acute gallstone pancreatitis (not a surgical candidate at this time) with necrosis Acute kidney failure now requiring dialysis Salpingitis Gallstones (Calculus of gallbladder with acute cholecystitis without obstruction) HTN Leukocytosis Hypoxia Uterine fibroid Intractable pain Intractable nausea Covid 19 negative. Acute on chronic anemia EEG: No seizure activity ESRD on HD Hyperglycemia History of Present Illness History of Present Illness Ms Diaz is a 48yo F w/ PMHx HTN, prediabetes who presented to the emergency room with complaints of abdominal pain on 07/04/2019. Found with Lipase 11189, AST 401, ALT 249, Bilirubin 1.4. CT abdomen confirms pancreatic inflammation, peripancreatic fluid and inflammatory changes around the pancreas consistent with pancreatitis. Cholelithiasis and 1.4cm uterine fibroid as well as possible left salpingitis. Admitted for further care GI, General surgery, ID, Pulm consulted. 07/04: PICC placed per IR. Renal US negative. Started on levophed. Repeat CT abdomen w/ necrosis; 07/05: Dialysis catheter per nephrology; 07/06: On BiPAP; 07/07: BiPAP, dialysis; 07/08: Overnight Tmax 101.7 , still on BiPAP FiO2 40%, still on low dose Levophed gtt, TPN initiated. On dialysis 07/24: Tracheostomy; 07/30: S/p tracheostomy on vent spontaneous respirations with 5 of pressure support 35% FiO2, rectal tube and a Lind, off pressors; 08/01:Still on vent via trach. Removed PICC and CVC LIJ and replaced. CT chest/abd/pelvis with bilateral pleural effusion and ascites. 08/02: Renal function stable. Still on vent. More interactive today. Miming wish for food. Plan discussed for thoracentesis/paracentesis with daughters today. They were under impression patient was doing worse due to a miscommunication which has been clarified over the phone. 4.3L removed. 08/04: Febrile overnight 101.8F. More interactive, still on vent. Asking for ice by miming; 08/05: Afebrile overnight. TMax last 24 hours 100.6F. Hb 7.1. Interactive when awake. 08/09: Transfusion 1u PRBC (6U total since admit) 08/10-08/13: TPN and precedex, vent. 08/14: Tmax 101F overnight. Hb 8.2. HD cath out since 08/11. Alert. On vent SIMV 35% FiO2. Surgery: ex-lap, no ronel or pancreatic necrosectomy 2/2 profound inflammation. 08/15: Seen POD #1. Afebrile overnight. BUN 62. CBC WNL today.Remains on vent via trach, TPN. Able to point today and indicate she wishes her daughters and Jamaal to be involved in her care. 08/16: Hb 7.4, Na 151. Remains on vent via trach, TPN. off HD for now. Not tolerating trach shield well. 08/17: Negative US for UE DVT. More relaxed today. Has some increase in UOP. Tolerating vent well. She is requesting to eat and drink via writing. T max 100F 24 hours ago, but 101F at 1200. Right PICC placed. Speaking valve for half the day in [facility] 08/18: Na 153 today. Good UOP. Tmax 101F at 1200 on 08/17. She becomes a bit anxious and did not sleep much last night, wishes to try to sleep this morning 08/19: Able to speak well with speaking valve today. Na 153, K2.9, Mg 1.8, Cr 1. 100.4F axillary temp overnight. Asking for food. Afebrile overnight. ABG with pH 7.27/75/123. Hb 7.1. Na 153. TUBE REPAIRER settings decreased Plan: Cont vent weaning. will need BIPAP Decrease opioids, may need to d/c TUBE REPAIRER. Would favor long active basal fentanyl patch 12.5mg and Q3hr prn dilaudid 1mg, will d/w general surgery. Trach shield and speaking valve during day when awake. Would recommend ABG after 4 hours to r/o CO2 retention, however and still vent overnight Monitor fever curve, no obvious source of infection, possibly some aspiration ev ents, atelectasis Vitals Vitals Vital Signs Date Time Temp Pulse Resp B/P (MAP) Pulse Ox O2 Delivery O2 Flow Rate FiO2 08/21/19 08:08 95 Ventilator 08/21/19 06:00 103 25 115/65 (82) 08/21/19 04:00 97.7 97.7 08/20/19 16:38 10.0 Physical Exam Physical Exam GENERAL: Propped up in bed, sedated weak appearing HEENT: Pupils equal, + NGT, oral cavity dry NECK: Trach/vent LUNGS: rhonchi HEART: S1, S2, regular ABDOMEN: Distended, hypoactive BS, drain placement (08/14 ) : Lind (08/01) EXTREMITIES: Generalized edema, no cyanosis, SCDs bilaterally DERMATOLOGIC: Warm and dry. No generalized rash. CENTRAL NERVOUS SYSTEM: Extremely weak, nods to few simple questions PICC line in place August 18, 2019 clean HDC has been removed LIJ removed General: Alert, Cooperative, mild distress Heart: Regular rate, No murmurs Lungs: Crackles Abdomen: Normal bowel sounds, Soft, Other (Mildly tender in epigastrium no peritoneal signs) Extremities: No edema Skin: Other (mottling noted to extremities ) Labs LABS Laboratory Tests Test 08/20/19 13:34 08/20/19 18:06 08/21/19 00:03 08/21/19 05:25 Glucose (Fingerstick) 146 mg/dL (70-99) 135 mg/dL (70-99) 122 mg/dL (70-99) 113 mg/dL (70-99) Test 08/21/19 05:30 08/21/19 07:55 White Blood Count 9.7 x10^3/uL (4.0-11.0) Red Blood Count 2.44 x10^6/uL (3.50-5.40) Hemoglobin 7.1 g/dL (12.0-15.5) Hematocrit 22.8 % (36.0-47.0) Mean Corpuscular Volume 93 fL (79-100) Mean Corpuscular Hemoglobin 29 pg (25-35) Mean Corpuscular Hemoglobin Concent 31 g/dL (31-37) Red Cell Distribution Width 18.1 % (11.5-14.5) Platelet Count 408 x10^3/uL (140-400) Neutrophils (%) (Auto) 79 % (31-73) Lymphocytes (%) (Auto) 14 % (24-48) Monocytes (%) (Auto) 5 % (0-9) Eosinophils (%) (Auto) 2 % (0-3) Basophils (%) (Auto) 0 % (0-3) Neutrophils # (Auto) 7.7 x10^3/uL (1.8-7.7) Lymphocytes # (Auto) 1.4 x10^3/uL (1.0-4.8) Monocytes # (Auto) 0.5 x10^3/uL (0.0-1.1) Eosinophils # (Auto) 0.2 x10^3/uL (0.0-0.7) Basophils # (Auto) 0.0 x10^3/uL (0.0-0.2) Sodium Level 153 mmol/L (136-145) Potassium Level 4.3 mmol/L (3.5-5.1) Chloride Level 114 mmol/L (98-107) Carbon Dioxide Level 38 mmol/L (21-32) Anion Gap 1 (6-14) Blood Urea Nitrogen 47 mg/dL (7-20) Creatinine 1.0 mg/dL (0.6-1.0) Estimated GFR (Cockcroft-Gault) 58.9 Glucose Level 125 mg/dL (70-99) Calcium Level 8.7 mg/dL (8.5-10.1) O2 Saturation 97 % (92-99) Arterial Blood pH 7.27 (7.35-7.45) Arterial Blood pCO2 at Patient Temp 75 mmHg (35-46) Arterial Blood pO2 at Patient Temp 123 mmHg (75-108) Arterial Blood HCO3 34 mmol/L (21-28) Arterial Blood Base Excess 6 mmol/L (-3-3) Oxyhemoglobin 96.8 % Methemoglobin 0.5 % (0.0-1.9) Carbon Monoxide, Quantitative 0.1 % (0.0-1.9) FiO2 40 Assessment and Plan Assessmemt and Plan Problems Medical Problems: (1) Acute pancreatitis Status: Acute (2) Cholelithiasis Status: Acute Comment Review of Relevant I have reviewed the following items kolby (where applicable) has been applied. Labs Laboratory Tests Test 08/19/19 12:20 08/19/19 17:31 08/19/19 23:34 08/20/19 05:45 Glucose (Fingerstick) 147 mg/dL (70-99) 140 mg/dL (70-99) 134 mg/dL (70-99) White Blood Count 9.7 x10^3/uL (4.0-11.0) Red Blood Count 2.46 x10^6/uL (3.50-5.40) Hemoglobin 7.2 g/dL (12.0-15.5) Hematocrit 22.4 % (36.0-47.0) Mean Corpuscular Volume 91 fL (79-100) Mean Corpuscular Hemoglobin 29 pg (25-35) Mean Corpuscular Hemoglobin Concent 32 g/dL (31-37) Red Cell Distribution Width 18.1 % (11.5-14.5) Platelet Count 419 x10^3/uL (140-400) Neutrophils (%) (Auto) 77 % (31-73) Lymphocytes (%) (Auto) 16 % (24-48) Monocytes (%) (Auto) 5 % (0-9) Eosinophils (%) (Auto) 2 % (0-3) Basophils (%) (Auto) 0 % (0-3) Neutrophils # (Auto) 7.4 x10^3/uL (1.8-7.7) Lymphocytes # (Auto) 1.5 x10^3/uL (1.0-4.8) Monocytes # (Auto) 0.4 x10^3/uL (0.0-1.1) Eosinophils # (Auto) 0.2 x10^3/uL (0.0-0.7) Basophils # (Auto) 0.0 x10^3/uL (0.0-0.2) Sodium Level 154 mmol/L (136-145) Potassium Level 2.9 mmol/L (3.5-5.1) Chloride Level 111 mmol/L (98-107) Carbon Dioxide Level 34 mmol/L (21-32) Anion Gap 9 (6-14) Blood Urea Nitrogen 45 mg/dL (7-20) Creatinine 1.0 mg/dL (0.6-1.0) Estimated GFR (Cockcroft-Gault) 58.9 Glucose Level 153 mg/dL (70-99) Calcium Level 8.6 mg/dL (8.5-10.1) Phosphorus Level 3.6 mg/dL (2.6-4.7) Magnesium Level 1.8 mg/dL (1.8-2.4) Test 08/20/19 05:48 08/20/19 13:34 08/20/19 18:06 08/21/19 00:03 Glucose (Fingerstick) 149 mg/dL (70-99) 146 mg/dL (70-99) 135 mg/dL (70-99) 122 mg/dL (70-99) Test 08/21/19 05:25 08/21/19 05:30 08/21/19 07:55 Glucose (Fingerstick) 113 mg/dL (70-99) White Blood Count 9.7 x10^3/uL (4.0-11.0) Red Blood Count 2.44 x10^6/uL (3.50-5.40) Hemoglobin 7.1 g/dL (12.0-15.5) Hematocrit 22.8 % (36.0-47.0) Mean Corpuscular Volume 93 fL (79-100) Mean Corpuscular Hemoglobin 29 pg (25-35) Mean Corpuscular Hemoglobin Concent 31 g/dL (31-37) Red Cell Distribution Width 18.1 % (11.5-14.5) Platelet Count 408 x10^3/uL (140-400) Neutrophils (%) (Auto) 79 % (31-73) Lymphocytes (%) (Auto) 14 % (24-48) Monocytes (%) (Auto) 5 % (0-9) Eosinophils (%) (Auto) 2 % (0-3) Basophils (%) (Auto) 0 % (0-3) Neutrophils # (Auto) 7.7 x10^3/uL (1.8-7.7) Lymphocytes # (Auto) 1.4 x10^3/uL (1.0-4.8) Monocytes # (Auto) 0.5 x10^3/uL (0.0-1.1) Eosinophils # (Auto) 0.2 x10^3/uL (0.0-0.7) Basophils # (Auto) 0.0 x10^3/uL (0.0-0.2) Sodium Level 153 mmol/L (136-145) Potassium Level 4.3 mmol/L (3.5-5.1) Chloride Level 114 mmol/L (98-107) Carbon Dioxide Level 38 mmol/L (21-32) Anion Gap 1 (6-14) Blood Urea Nitrogen 47 mg/dL (7-20) Creatinine 1.0 mg/dL (0.6-1.0) Estimated GFR (Cockcroft-Gault) 58.9 Glucose Level 125 mg/dL (70-99) Calcium Level 8.7 mg/dL (8.5-10.1) O2 Saturation 97 % (92-99) Arterial Blood pH 7.27 (7.35-7.45) Arterial Blood pCO2 at Patient Temp 75 mmHg (35-46) Arterial Blood pO2 at Patient Temp 123 mmHg (75-108) Arterial Blood HCO3 34 mmol/L (21-28) Arterial Blood Base Excess 6 mmol/L (-3-3) Oxyhemoglobin 96.8 % Methemoglobin 0.5 % (0.0-1.9) Carbon Monoxide, Quantitative 0.1 % (0.0-1.9) FiO2 40 Laboratory Tests Test 08/20/19 13:34 08/20/19 18:06 08/21/19 00:03 08/21/19 05:25 Glucose (Fingerstick) 146 mg/dL (70-99) 135 mg/dL (70-99) 122 mg/dL (70-99) 113 mg/dL (70-99) Test 08/21/19 05:30 08/21/19 07:55 White Blood Count 9.7 x10^3/uL (4.0-11.0) Red Blood Count 2.44 x10^6/uL (3.50-5.40) Hemoglobin 7.1 g/dL (12.0-15.5) Hematocrit 22.8 % (36.0-47.0) Mean Corpuscular Volume 93 fL (79-100) Mean Corpuscular Hemoglobin 29 pg (25-35) Mean Corpuscular Hemoglobin Concent 31 g/dL (31-37) Red Cell Distribution Width 18.1 % (11.5-14.5) Platelet Count 408 x10^3/uL (140-400) Neutrophils (%) (Auto) 79 % (31-73) Lymphocytes (%) (Auto) 14 % (24-48) Monocytes (%) (Auto) 5 % (0-9) Eosinophils (%) (Auto) 2 % (0-3) Basophils (%) (Auto) 0 % (0-3) Neutrophils # (Auto) 7.7 x10^3/uL (1.8-7.7) Lymphocytes # (Auto) 1.4 x10^3/uL (1.0-4.8) Monocytes # (Auto) 0.5 x10^3/uL (0.0-1.1) Eosinophils # (Auto) 0.2 x10^3/uL (0.0-0.7) Basophils # (Auto) 0.0 x10^3/uL (0.0-0.2) Sodium Level 153 mmol/L (136-145) Potassium Level 4.3 mmol/L (3.5-5.1) Chloride Level 114 mmol/L (98-107) Carbon Dioxide Level 38 mmol/L (21-32) Anion Gap 1 (6-14) Blood Urea Nitrogen 47 mg/dL (7-20) Creatinine 1.0 mg/dL (0.6-1.0) Estimated GFR (Cockcroft-Gault) 58.9 Glucose Level 125 mg/dL (70-99) Calcium Level 8.7 mg/dL (8.5-10.1) O2 Saturation 97 % (92-99) Arterial Blood pH 7.27 (7.35-7.45) Arterial Blood pCO2 at Patient Temp 75 mmHg (35-46) Arterial Blood pO2 at Patient Temp 123 mmHg (75-108) Arterial Blood HCO3 34 mmol/L (21-28) Arterial Blood Base Excess 6 mmol/L (-3-3) Oxyhemoglobin 96.8 % Methemoglobin 0.5 % (0.0-1.9) Carbon Monoxide, Quantitative 0.1 % (0.0-1.9) FiO2 40 Microbiology 08/18/19 Aerobic Culture, Resulted Pending 08/18/19 Aerobic Culture Result 1 (ALEXANDRA), Resulted Pending 08/18/19 Gram Stain - Final, Resulted 08/18/19 Gram Stain Result 1 (ALEXANDRA) - Final, Resulted 08/18/19 Gram Stain Result 2 (ALEXANDRA) - Final, Resulted 08/17/19 Blood Culture - Preliminary, Resulted NO GROWTH AFTER 3 DAYS 08/15/19 Aerobic and Anaerobic Culture - Preliminary, Resulted 08/15/19 Anaerobic Culture Result 1 (ALEXANDRA) - Preliminary, Resulted 08/15/19 Aerobic Culture - Final, Resulted 08/15/19 Aerobic Culture Result 1 (ALEXANDRA) - Final, Resulted 08/15/19 Gram Stain - Final, Resulted 08/15/19 Gram Stain Result 1 (ALEXANDRA) - Final, Resulted 08/15/19 Gram Stain Result 2 (ALEXANDRA) - Final, Resulted 07/31/19 Urine Culture - Final, Complete 07/31/19 Urine Culture Result 1 (ALEXANDRA) - Final, Complete Medications Current Medications Sodium Chloride 1,000 ml @ 1,000 mls/hr Q1H IV Last administered on 07/04/19at 03:00; Start 07/04/19 at 03:00; Stop 07/04/19 at 03:59; Status DC Ondansetron HCl (Zofran) 4 mg 1X ONCE IVP Last administered on 07/04/19at 03:27; Start 07/04/19 at 03:00; Stop 07/04/19 at 03:01; Status DC Morphine Sulfate (Morphine Sulfate) 4 mg 1X ONCE IV ; Start 07/04/19 at 03:00; Stop 07/04/19 at 03:01; Status Cancel Ketorolac Tromethamine (Toradol 30mg Vial) 30 mg 1X ONCE IV Last administered on 07/04/19at 02:54; Start 07/04/19 at 03:00; Stop 07/04/19 at 03:01; Status DC Fentanyl Citrate (Fentanyl 2ml Vial) 25 mcg 1X ONCE IVP Last administered on 07/04/19at 03:23; Start 07/04/19 at 03:30; Stop 07/04/19 at 03:31; Status DC Fentanyl Citrate (Fentanyl 2ml Vial) 100 mcg STK-MED ONCE .ROUTE ; Start 07/04/19 at 03:18; Stop 07/04/19 at 03:18; Status DC Iohexol (Omnipaque 350 Mg/ml) 90 ml 1X ONCE IV Last administered on 07/04/19at 03:25; Start 07/04/19 at 03:30; Stop 07/04/19 at 03:31; Status DC Info (CONTRAST GIVEN -- Rx MONITORING) 1 each PRN DAILY PRN MC SEE COMMENTS; Start 07/04/19 at 03:30; Stop 07/06/19 at 03:29; Status DC Hydromorphone HCl (Dilaudid) 0.5 mg 1X ONCE IV Last administered on 07/04/19at 03:55; Start 07/04/19 at 04:30; Stop 07/04/19 at 04:32; Status DC Ondansetron HCl (Zofran) 4 mg PRN Q8HRS PRN IV NAUSEA/VOMITING 1ST CHOICE; Start 07/04/19 at 05:00; Stop 07/04/19 at 09:27; Status DC Morphine Sulfate (Morphine Sulfate) 2 mg PRN Q2HR PRN IV SEVERE PAIN 7-10 Last administered on 07/05/19at 12:26; Start 07/04/19 at 05:00; Stop 07/05/19 at 14:15; Status DC Sodium Chloride 1,000 ml @ 125 mls/hr Q8H IV Last administered on 07/04/19at 20:56; Start 07/04/19 at 05:00; Stop 07/05/19 at 04:59; Status DC Hydromorphone HCl (Dilaudid) 0.5 mg PRN Q3HRS PRN IV SEVERE PAIN 7-10 Last administered on 07/05/19at 10:06; Start 07/04/19 at 05:00; Stop 07/05/19 at 12:0 1; Status DC Piperacillin Sod/ Tazobactam Sod 4.5 gm/Sodium Chloride 100 ml @ 200 mls/hr 1X ONCE IV Last administered on 07/04/19at 05:44; Start 07/04/19 at 06:00; Stop 07/04/19 at 06:29; Status DC Ondansetron HCl (Zofran) 4 mg PRN Q4HRS PRN IV NAUSEA/VOMITING 1ST CHOICE Last administered on 08/20/19at 13:05; Start 07/04/19 at 09:30 Insulin Human Lispro (HumaLOG) 0-9 UNITS Q6HRS SQ Last administered on 08/18/19at 17:29; Start 07/04/19 at 09:30 Dextrose (Dextrose 50%-Water Syringe) 12.5 gm PRN Q15MIN PRN IV SEE COMMENTS; Start 07/04/19 at 09:30 Pantoprazole Sodium (PROTONIX VIAL for IV PUSH) 40 mg DAILYAC IVP Last administered on 08/20/19at 08:20; Start 07/04/19 at 11:30 Prochlorperazine Edisylate (Compazine) 10 mg PRN Q6HRS PRN IV NAUSEA/VOMITING, 2nd CHOICE Last administered on 08/17/19at 14:59; Start 07/04/19 at 17:45 Atenolol (Tenormin) 100 mg DAILY PO ; Start 07/05/19 at 09:00; Stop 07/04/19 at 20:08; Status DC Metoprolol Tartrate (Lopressor Vial) 2.5 mg Q6HRS IVP Last administered on 07/05/19at 05:51; Start 07/04/19 at 20:15; Stop 07/05/19 at 10:02; Status DC Metoprolol Tartrate (Lopressor Vial) 5 mg Q6HRS IVP Last administered on 07/14/19at 00:12; Start 07/05/19 at 10:15; Stop 07/16/19 at 08:48; Status DC Hydromorphone HCl (Dilaudid) 1 mg PRN Q3HRS PRN IV SEVERE PAIN 7-10 Last administered on 07/11/19at 05:13; Start 07/05/19 at 12:00; Stop 07/19/19 at 00:25; Status DC Lidocaine HCl (Buffered Lidocaine 1%) 3 ml STK-MED ONCE .ROUTE ; Start 07/05/19 at 12:55; Stop 07/05/19 at 12:56; Status DC Albumin Human 500 ml @ 125 mls/hr 1X ONCE IV Last administered on 07/05/19at 14:33; Start 07/05/19 at 14:30; Stop 07/05/19 at 18:32; Status DC Norepinephrine Bitartrate 8 mg/ Dextrose 258 ml @ 17.299 mls/ hr CONT PRN IV PER PROTOCOL Last administered on 08/02/19at 12:48; Start 07/05/19 at 15:30; Stop 08/05/19 at 09:19; Status DC Sodium Chloride 1,000 ml @ 125 mls/hr Q8H IV Last administered on 07/05/19at 21:04; Start 07/05/19 at 16:00; Stop 07/06/19 at 02:42; Status DC Albumin Human 500 ml @ 125 mls/hr PRN BID PRN IV After every 2L NSS & BP < 90mm Last administered on 07/20/19at 14:21; Start 07/05/19 at 16:00 Iohexol (Omnipaque 300 Mg/ml) 60 ml 1X ONCE IV Last administered on 07/05/19at 17:20; Start 07/05/19 at 17:00; Stop 07/05/19 at 17:01; Status DC Info (CONTRAST GIVEN -- Rx MONITORING) 1 each PRN DAILY PRN MC SEE COMMENTS; Start 07/05/19 at 17:00; Stop 07/07/19 at 16:59; Status DC Meropenem 1 gm/ Sodium Chloride 100 ml @ 200 mls/hr Q8HRS IV Last administered on 07/06/19at 05:45; Start 07/05/19 at 20:00; Stop 07/06/19 at 08:48; Status DC Furosemide (Lasix) 40 mg 1X ONCE IVP Last administered on 07/05/19at 22:12; Start 07/05/19 at 22:30; Stop 07/05/19 at 22:31; Status DC Calcium Chloride 1000 mg/Sodium Chloride 110 ml @ 220 mls/hr 1X ONCE IV Last administered on 07/05/19at 22:11; Start 07/05/19 at 22:30; Stop 07/05/19 at 22:59; Status DC Albuterol Sulfate (Ventolin Neb Soln) 2.5 mg 1X ONCE NEB Last administered on 07/06/19at 00:56; Start 07/05/19 at 22:30; Stop 07/05/19 at 22:31; Status DC Insulin Human Regular (HumuLIN R VIAL) 5 unit 1X ONCE IV Last administered on 07/05/19at 22:14; Start 07/05/19 at 22:30; Stop 07/05/19 at 22:31; Status DC Magnesium Sulfate 50 ml @ 25 mls/hr 1X ONCE IV Last administered on 07/06/19at 02:57; Start 07/06/19 at 03:00; Stop 07/06/19 at 04:59; Status DC Calcium Gluconate 1000 mg/Sodium Chloride 110 ml @ 220 mls/hr 1X ONCE IV Last administered on 07/06/19at 02:46; Start 07/06/19 at 03:00; Stop 07/06/19 at 03:29; Status DC Sodium Chloride 1,000 ml @ 200 mls/hr Q5H IV Last administered on 07/06/19at 02:46; Start 07/06/19 at 03:00; Stop 07/06/19 at 10:21; Status DC Calcium Gluconate 1000 mg/Sodium Chloride 110 ml @ 220 mls/hr 1X ONCE IV Last administered on 07/06/19at 03:21; Start 07/06/19 at 03:30; Stop 07/06/19 at 03:59; Status DC Sodium Bicarbonate 50 meq/Sodium Chloride 1,050 ml @ 75 mls/hr Q14H IV Last administered on 07/10/19at 21:10; Start 07/06/19 at 07:30; Stop 07/11/19 at 10:28; Status DC Calcium Gluconate 2000 mg/Sodium Chloride 120 ml @ 220 mls/hr 1X ONCE IV Last administered on 07/06/19at 09:05; Start 07/06/19 at 07:30; Stop 07/06/19 at 08:02; Status DC Lidocaine HCl (Xylocaine-Mpf 1% 2ml Vial) 2 ml STK-MED ONCE .ROUTE ; Start 07/06/19 at 08:47; Stop 07/06/19 at 08:47; Status DC Meropenem 500 mg/ Sodium Chloride 50 ml @ 100 mls/hr Q12HR IV Last administered on 07/11/19at 21:01; Start 07/06/19 at 18:00; Stop 07/12/19 at 07:58; Status DC Lidocaine HCl (Buffered Lidocaine 1%) 3 ml STK-MED ONCE .ROUTE ; Start 07/06/19 at 09:46; Stop 07/06/19 at 09:46; Status DC Lidocaine HCl (Buffered Lidocaine 1%) 6 ml 1X ONCE INJ Last administered on 07/06/19at 10:26; Start 07/06/19 at 10:15; Stop 07/06/19 at 10:16; Status DC Info (Tpn Per Pharmacy) 1 each PRN DAILY PRN MC SEE COMMENTS Last administered on 08/20/19at 11:09; Start 07/06/19 at 12:00 Sodium Chloride 1,000 ml @ 1,000 mls/hr Q1H PRN IV hypotension; Start 07/06/19 at 12:07; Stop 07/06/19 at 18:06; Status DC Diphenhydramine HCl (Benadryl) 25 mg 1X PRN PRN IV ITCHING; Start 07/06/19 at 12:15; Stop 07/07/19 at 12:14; Status DC Diphenhydramine HCl (Benadryl) 25 mg 1X PRN PRN IV ITCHING; Start 07/06/19 at 12:15; Stop 07/07/19 at 12:14; Status DC Sodium Chloride 1,000 ml @ 400 mls/hr Q2H30M PRN IV PATENCY; Start 07/06/19 at 12:07; Stop 07/07/19 at 00:06; Status DC Info (PHARMACY MONITORING -- do not chart) 1 each PRN DAILY PRN MC SEE COMMENTS; Start 07/06/19 at 12:15; Stop 07/08/19 at 08:13; Status DC Sodium Chloride 90 meq/Calcium Gluconate 10 meq/ Multivitamins 10 ml/Chromium/ Copper/Manganese/ Seleni/Zn 1 ml/ Total Parenteral Nutrition/Amino Acids/Dextrose/ Fat Emulsion Intravenous 55.005 ml @ 2.292 mls/hr TPN CONT IV ; Start 07/06/19 at 22:00; Stop 07/06/19 at 12:33; Status DC Info (Tpn Per Pharmacy) 1 each PRN DAILY PRN MC SEE COMMENTS; Start 07/06/19 at 12:30; Status UNV Sodium Chloride 90 meq/Calcium Gluconate 10 meq/ Multivitamins 10 ml/Chromium/ Copper/Manganese/ Seleni/Zn 0.5 ml/ Total Parenteral Nutrition/Amino Acids/Dextrose/ Fat Emulsion Intravenous 1,512 ml @ 63 mls/hr TPN CONT IV Last administered on 07/06/19at 22:06; Start 07/06/19 at 22:00; Stop 07/07/19 at 21:59; Status DC Calcium Carbonate/ Glycine (Tums) 500 mg PRN AFTMEALHC PRN PO INDIGESTION; Start 07/06/19 at 17:45 Calcium Gluconate (Calcium Gluconate) 2,000 mg 1X ONCE IVP Last administered on 07/07/19at 02:19; Start 07/07/19 at 02:15; Stop 07/07/19 at 02:16; Status DC Calcium Chloride 3000 mg/Sodium Chloride 1,030 ml @ 50 mls/hr [id number] IV Last administered on 07/09/19at 02:17; Start 07/07/19 at 08:00; Stop 07/09/19 at 15:23; Status DC Lorazepam (Ativan Inj) 1 mg PRN Q4HRS PRN IVP ANXIETY / AGITATION, 2nd choic Last administered on 08/05/19at 03:51; Start 07/07/19 at 09:00; Stop 08/05/19 at 09:19; Status DC Sodium Chloride 1,000 ml @ 1,000 mls/hr Q1H PRN IV hypotension; Start 07/07/19 at 08:56; Stop 07/07/19 at 14:55; Status DC Albumin Human 200 ml @ 200 mls/hr 1X PRN PRN IV Hypotension; Start 07/07/19 at 09:00; Stop 07/07/19 at 14:59; Status DC Diphenhydramine HCl (Benadryl) 25 mg 1X PRN PRN IV ITCHING; Start 07/07/19 at 09:00; Stop 07/08/19 at 08:59; Status DC Diphenhydramine HCl (Benadryl) 25 mg 1X PRN PRN IV ITCHING; Start 07/07/19 at 09:00; Stop 07/08/19 at 08:59; Status DC Sodium Chloride 1,000 ml @ 400 mls/hr Q2H30M PRN IV PATENCY; Start 07/07/19 at 08:56; Stop 07/07/19 at 20:55; Status DC Info (PHARMACY MONITORING -- do not chart) 1 each PRN DAILY PRN MC SEE COMMENTS; Start 07/07/19 at 09:00; Status UNV Info (PHARMACY MONITORING -- do not chart) 1 each PRN DAILY PRN MC SEE COMMENTS; Start 07/07/19 at 09:00; Stop 07/08/19 at 08:13; Status DC Digoxin (Lanoxin) 500 mcg 1X ONCE IV Last administered on 07/07/19at 10:04; Start 07/07/19 at 10:00; Stop 07/07/19 at 10:01; Status DC Digoxin (Lanoxin) 125 mcg 1X ONCE IV Last administered on 07/07/19at 17:10; Start 07/07/19 at 18:00; Stop 07/07/19 at 18:01; Status DC Magnesium Sulfate 100 ml @ 25 mls/hr 1X ONCE IV Last administered on 07/07/19at 12:48; Start 07/07/19 at 13:00; Stop 07/07/19 at 16:59; Status DC Sodium Chloride 90 meq/Magnesium Sulfate 10 meq/ Calcium Gluconate 20 meq/ Multivitamins 10 ml/Chromium/ Copper/Manganese/ Seleni/Zn 0.5 ml/ Total Parenteral Nutrition/Amino Acids/Dextrose/ Fat Emulsion Intravenous 1,512 ml @ 63 mls/hr TPN CONT IV Last administered on 07/07/19at 22:25; Start 07/07/19 at 22:00; Stop 07/08/19 at 21:59; Status DC Sodium Chloride 1,000 ml @ 1,000 mls/hr Q1H PRN IV hypotension; Start 07/08/19 at 08:05; Stop 07/08/19 at 14:04; Status DC Albumin Human 200 ml @ 200 mls/hr 1X ONCE IV Last administered on 07/08/19at 08:57; Start 07/08/19 at 08:15; Stop 07/08/19 at 09:14; Status DC Diphenhydramine HCl (Benadryl) 25 mg 1X PRN PRN IV ITCHING; Start 07/08/19 at 08:15; Stop 07/09/19 at 08:14; Status DC Diphenhydramine HCl (Benadryl) 25 mg 1X PRN PRN IV ITCHING; Start 07/08/19 at 08:15; Stop 07/09/19 at 08:14; Status DC Sodium Chloride 1,000 ml @ 400 mls/hr Q2H30M PRN IV PATENCY; Start 07/08/19 at 08:05; Stop 07/08/19 at 20:04; Status DC Info (PHARMACY MONITORING -- do not chart) 1 each PRN DAILY PRN MC SEE COMMENTS; Start 07/08/19 at 08:15; Stop 07/12/19 at 07:57; Status DC Sodium Chloride 90 meq/Potassium Chloride 15 meq/ Potassium Phosphate 10 mmol/ Magnesium Sulfate 10 meq/Calcium Gluconate 20 meq/ Multivitamins 10 ml/Chromium/ Copper/Manganese/ Seleni/Zn 0.5 ml/ Total Parenteral Nutrition/Amino Acids/Dextrose/ Fat Emulsion Intravenous 1,512 ml @ 63 mls/hr TPN CONT IV Last administered on 07/08/19at 21:01; Start 07/08/19 at 22:00; Stop 07/09/19 at 21:59; Status DC Potassium Chloride/Water 100 ml @ 100 mls/hr 1X ONCE IV Last administered on 07/08/19at 14:09; Start 07/08/19 at 14:00; Stop 07/08/19 at 14:59; Status DC Benzocaine (Hurricaine One) 1 spray 1X ONCE MM Last administered on 07/08/19at 16:38; Start 07/08/19 at 14:30; Stop 07/08/19 at 14:31; Status DC Lidocaine HCl (Glydo (Lidocaine) Jelly) 1 ramu 1X ONCE MM Last administered on 07/08/19at 16:38; Start 07/08/19 at 14:30; Stop 07/08/19 at 14:31; Status DC Linezolid/Dextrose 300 ml @ 300 mls/hr Q12HR IV Last administered on 07/14/19at 21:04; Start 07/08/19 at 20:00; Stop 07/15/19 at 07:50; Status DC Acetaminophen (Tylenol) 650 mg PRN Q6HRS PRN PO MILD PAIN / TEMP; Start 07/09/19 at 03:30; Stop 07/09/19 at 03:36; Status DC Acetaminophen (Tylenol) 650 mg PRN Q6HRS PRN PEG MILD PAIN / TEMP Last administered on 08/04/19at 19:56; Start 07/09/19 at 03:36 Sodium Chloride 1,000 ml @ 1,000 mls/hr Q1H PRN IV hypotension; Start 07/09/19 at 07:50; Stop 07/09/19 at 13:49; Status DC Albumin Human 200 ml @ 200 mls/hr 1X PRN PRN IV Hypotension; Start 07/09/19 at 08:00; Stop 07/09/19 at 13:59; Status DC Sodium Chloride (Normal Saline Flush) 10 ml 1X PRN PRN IV AP catheter pack; Start 07/09/19 at 08:00; Stop 07/10/19 at 07:59; Status DC Sodium Chloride (Normal Saline Flush) 10 ml 1X PRN PRN IV [employer] LE[employer]ING MA[employer]GER catheter pack; St art 07/09/19 at 08:00; Stop 07/10/19 at 07:59; Status DC Sodium Chloride 1,000 ml @ 400 mls/hr Q2H30M PRN IV PATENCY; Start 07/09/19 at 07:50; Stop 07/09/19 at 19:49; Status DC Info (PHARMACY MONITORING -- do not chart) 1 each PRN DAILY PRN MC SEE COMME NTS; Start 07/09/19 at 08:00; Status UNV Info (PHARMACY MONITORING -- do not chart) 1 each PRN DAILY PRN MC SEE COMMENTS; Start 07/09/19 at 08:00; Stop 07/11/19 at 08:25; Status DC Sodium Chloride 90 meq/Potassium Chloride 15 meq/ Potassium Phosphate 10 mmol/ Magnesium Sulfate 10 meq/Calcium Gluconate 20 meq/ Multivitamins 10 ml/Chromium/ Copper/Manganese/ Seleni/Zn 0.5 ml/ Total Parenteral Nutrition/Amino Acids/Dextrose/ Fat Emulsion Intravenous 1,512 ml @ 63 mls/hr TPN CONT IV Last administered on 07/09/19at 20:57; Start 07/09/19 at 22:00; Stop 07/10/19 at 21:59; Status DC Sodium Chloride 90 meq/Potassium Chloride 15 meq/ Potassium Phosphate 15 mmol/ Magnesium Sulfate 10 meq/Calcium Gluconate 20 meq/ Multivitamins 10 ml/Chromium/ Copper/Manganese/ Seleni/Zn 0.5 ml/ Total Parenteral Nutrition/Amino Acids/Dextrose/ Fat Emulsion Intravenous 1,512 ml @ 63 mls/hr TPN CONT IV ; Start 07/10/19 at 22:00; Stop 07/10/19 at 14:16; Status DC Sodium Chloride 90 meq/Potassium Chloride 15 meq/ Potassium Phosphate 15 mmol/ Magnesium Sulfate 10 meq/Calcium Gluconate 20 meq/ Multivitamins 10 ml/Chromium/ Copper/Manganese/ Seleni/Zn 0.5 ml/ Total Parenteral Nutrition/Amino Acids/Dextrose/ Fat Emulsion Intravenous 1,200 ml @ 50 mls/hr TPN CONT IV ; Start 07/10/19 at 22:00; Stop 07/10/19 at 14:17; Status DC Sodium Chloride 90 meq/Potassium Chloride 15 meq/ Potassium Phosphate 10 mmol/ Magnesium Sulfate 10 meq/Calcium Gluconate 20 meq/ Multivitamins 10 ml/Chromium/ Copper/Manganese/ Seleni/Zn 0.5 ml/ Total Parenteral Nutrition/Amino Acids/Dextrose/ Fat Emulsion Intravenous 1,200 ml @ 50 mls/hr TPN CONT IV Last administered on 07/10/19at 23:29; Start 07/10/19 at 22:00; Stop 07/11/19 at 21:59; Status DC Sodium Chloride 1,000 ml @ 1,000 mls/hr Q1H PRN IV hypotension; Start 07/11/19 at 07:28; Stop 07/11/19 at 13:27; Status DC Albumin Human 200 ml @ 200 mls/hr 1X ONCE IV Last administered on 07/11/19at 08:51; Start 07/11/19 at 07:30; Stop 07/11/19 at 08:29; Status DC Diphenhydramine HCl (Benadryl) 25 mg 1X PRN PRN IV ITCHING; Start 07/11/19 at 07:30; Stop 07/12/19 at 07:29; Status DC Diphenhydramine HCl (Benadryl) 25 mg 1X PRN PRN IV ITCHING; Start 07/11/19 at 07:30; Stop 07/12/19 at 07:29; Status DC Sodium Chloride 1,000 ml @ 400 mls/hr Q2H30M PRN IV PATENCY; Start 07/11/19 at 07:28; Stop 07/11/19 at 19:27; Status DC Info (PHARMACY MONITORING -- do not chart) 1 each PRN DAILY PRN MC SEE COMMENTS; Start 07/11/19 at 07:30; Stop 07/22/19 at 13:01; Status DC Metronidazole 100 ml @ 100 mls/hr Q6HRS IV Last administered on 07/27/19at 06:26; Start 07/11/19 at 08:30; Stop 07/27/19 at 09:58; Status DC Micafungin Sodium 100 mg/Dextrose 100 ml @ 100 mls/hr Q24H IV Last administered on 08/18/19at 08:18; Start 07/11/19 at 09:00; Stop 08/18/19 at 20:58; Status DC Propofol 0 ml @ As Directed STK-MED ONCE IV ; Start 07/11/19 at 07:53; Stop 07/11/19 at 07:53; Status DC Etomidate (Amidate) 20 mg STK-MED ONCE IV ; Start 07/11/19 at 07:53; Stop 07/11/19 at 07:54; Status DC Midazolam HCl (Versed) 5 mg STK-MED ONCE .ROUTE ; Start 07/11/19 at 07:57; Stop 07/11/19 at 07:57; Status DC Fentanyl Citrate 30 ml @ 0 mls/hr CONT PRN IV SEE PROTOCOL Last administered on 08/05/19at 06:12; Start 07/11/19 at 08:15; Stop 08/05/19 at 09:19; Status DC Artificial Tears (Artificial Tears) 1 drop PRN Q1HR PRN OU DRY EYE, 1st choice; Start 07/11/19 at 08:15; Stop 08/17/19 at 05:31; Status DC Midazolam HCl 50 mg/Sodium Chloride 50 ml @ 0 mls/hr CONT PRN IV SEE PROTOCOL Last administered on 07/14/19at 22:39; Start 07/11/19 at 08:15; Stop 07/16/19 at 15:59; Status DC Etomidate (Amidate) 8 mg 1X ONCE IV Last administered on 07/11/19at 08:33; Start 07/11/19 at 08:30; Stop 07/11/19 at 08:31; Status DC Succinylcholine Chloride (Anectine) 120 mg 1X ONCE IV Last administered on 07/11/19at 08:34; Start 07/11/19 at 08:30; Stop 07/11/19 at 08:31; Status DC Midazolam HCl (Versed) 5 mg 1X ONCE IV ; Start 07/11/19 at 08:30; Stop 07/11/19 at 08:31; Status DC Potassium Chloride 15 meq/ Bicarbonate Dialysis Soln w/ out KCl 5,007.5 ml @ 1,000 mls/ hr Q5H1M IV Last administered on 07/12/19at 11:11; Start 07/11/19 at 12:00; Stop 07/12/19 at 11:15; Status DC Potassium Chloride 15 meq/ Bicarbonate Dialysis Soln w/ out KCl 5,007.5 ml @ 1,000 mls/ hr Q5H1M IV Last administered on 07/12/19at 11:12; Start 07/11/19 at 12:00; Stop 07/12/19 at 11:17; Status DC Potassium Chloride 15 meq/ Bicarbonate Dialysis Soln w/ out KCl 5,007.5 ml @ 1,000 mls/ hr Q5H1M IV Last administered on 07/12/19at 11:11; Start 07/11/19 at 12:00; Stop 07/12/19 at 11:19; Status DC Sodium Chloride 90 meq/Potassium Chloride 15 meq/ Potassium Phosphate 10 mmol/ Magnesium Sulfate 10 meq/Calcium Gluconate 20 meq/ Multivitamins 10 ml/Chromium/ Copper/Manganese/ Seleni/Zn 0.5 ml/ Total Parenteral Nutrition/Amino Acids/Dextrose/ Fat Emulsion Intravenous 1,400 ml @ 58.333 mls/ hr TPN CONT IV Last administered on 07/11/19at 21:42; Start 07/11/19 at 22:00; Stop 07/12/19 at 21:59; Status DC Heparin Sodium (Porcine) (Heparin Sodium) 5,000 unit Q8HRS SQ Last administered on 07/16/19at 05:55; Start 07/11/19 at 15:00; Stop 07/16/19 at 13:28; Status DC Meropenem 500 mg/ Sodium Chloride 50 ml @ 100 mls/hr Q6HRS IV Last administered on 07/13/19at 06:00; Start 07/12/19 at 09:00; Stop 07/13/19 at 07:29; Status DC Potassium Phosphate 20 mmol/ Sodium Chloride 106.6667 ml @ 51.667 m... 1X ONCE IV Last administered on 07/12/19at 11:22; Start 07/12/19 at 10:15; Stop 07/12/19 at 12:18; Status DC Acetaminophen (Tylenol Supp) 650 mg PRN Q6HRS PRN [place] MILD PAIN / TEMP > 100.3'F Last administered on 08/15/19at 00:32; Start 07/12/19 at 10:30 Potassium Chloride/Water 100 ml @ 100 mls/hr Q1H IV Last administered on 07/12/19at 12:12; Start 07/12/19 at 11:00; Stop 07/12/19 at 12:59; Status DC Potassium Chloride 20 meq/ Bicarbonate Dialysis Soln w/ out KCl 5,010 ml @ 1,000 mls/hr Q5H1M IV Last administered on 07/13/19at 08:48; Start 07/12/19 at 12:00; Stop 07/13/19 at 13:03; Status DC Potassium Chloride 20 meq/ Bicarbonate Dialysis Soln w/ out KCl 5,010 ml @ 1,000 mls/hr Q5H1M IV Last administered on 07/17/19at 14:52; Start 07/12/19 at 11:30; Stop 07/17/19 at 19:59; Status DC Potassium Chloride 20 meq/ Bicarbonate Dialysis Soln w/ out KCl 5,010 ml @ 1,000 mls/hr Q5H1M IV Last administered on 07/17/19at 14:53; Start 07/12/19 at 11:30; Stop 07/17/19 at 19:59; Status DC Sodium Chloride 90 meq/Potassium Chloride 15 meq/ Potassium Phosphate 15 mmol/ Magnesium Sulfate 10 meq/Calcium Gluconate 15 meq/ Multivitamins 10 ml/Chromium/ Copper/Manganese/ Seleni/Zn 0.5 ml/ Total Parenteral Nutrition/Amino Acids/Dextrose/ Fat Emulsion Intravenous 1,400 ml @ 58.333 mls/ hr TPN CONT IV Last administered on 07/12/19at 22:17; Start 07/12/19 at 22:00; Stop 07/13/19 at 21:59; Status DC Cefepime HCl (Maxipime) 2 gm Q12HR IVP Last administered on 07/26/19at 20:56; Start 07/13/19 at 09:00; Stop 07/27/19 at 09:58; Status DC Daptomycin 500 mg/ Sodium Chloride 50 ml @ 100 mls/hr Q48H IV Last administered on 07/29/19at 09:57; Start 07/13/19 at 08:30; Stop 07/29/19 at 10:07; Status DC Lidocaine HCl (Buffered Lidocaine 1%) 3 ml 1X ONCE INJ Last administered on 07/13/19at 10:27; Start 07/13/19 at 10:30; Stop 07/13/19 at 10:31; Status DC Potassium Phosphate 20 mmol/ Sodium Chloride 106.6667 ml @ 51.667 m... 1X ONCE IV Last administered on 07/13/19at 12:51; Start 07/13/19 at 13:00; Stop 07/13/19 at 15:03; Status DC Sodium Chloride 90 meq/Potassium Chloride 15 meq/ Potassium Phosphate 18 mmol/ Magnesium Sulfate 8 meq/Calcium Gluconate 15 meq/ Multivitamins 10 ml/Chromium/ Copper/Manganese/ Seleni/Zn 0.5 ml/ Total Parenteral Nutrition/Amino Acids/Dextrose/ Fat Emulsion Intravenous 1,400 ml @ 58.333 mls/ hr TPN CONT IV Last administered on 07/13/19at 22:16; Start 07/13/19 at 22:00; Stop 07/14/19 at 21:59; Status DC Potassium Chloride 20 meq/ Bicarbonate Dialysis Soln w/ out KCl 5,010 ml @ 1,000 mls/hr Q5H1M IV Last administered on 07/17/19at 14:54; Start 07/13/19 at 16:00; Stop 07/17/19 at 19:59; Status DC Multi-Ingred Cream/Lotion/Oil/ Oint (Artificial Tears Eye Ointment) 1 ramu PRN Q1HR PRN OU DRY EYE, 2nd choice Last administered on 08/01/19at 08:19; Start 07/13/19 at 17:30 Sodium Chloride 90 meq/Potassium Chloride 15 meq/ Potassium Phosphate 18 mmol/ Magnesium Sulfate 8 meq/Calcium Gluconate 15 meq/ Multivitamins 10 ml/Chromium/ Copper/Manganese/ Seleni/Zn 0.5 ml/ Total Parenteral Nutrition/Amino Aci ds/Dextrose/ Fat Emulsion Intravenous 1,400 ml @ 58.333 mls/ hr TPN CONT IV Last administered on 07/14/19at 22:00; Start 07/14/19 at 22:00; Stop 07/15/19 at 21:59; Status DC Albumin Human 500 ml @ 125 mls/hr 1X ONCE IV ; Start 07/14/19 at 14:15; Stop 07/14/19 at 18:14; Status DC Sodium Chloride 90 meq/Potassium Chloride 15 meq/ Potassium Phosphate 18 mmol/ Magnesium Sulfate 8 meq/Calcium Gluconate 15 meq/ Multivitamins 10 ml/Chromium/ Copper/Manganese/ Seleni/Zn 0.5 ml/ Insulin Human Regular 10 unit/ Total Parenteral Nutrition/Amino Acids/Dextrose/ Fat Emulsion Intravenous 1,400 ml @ 58.333 mls/ hr TPN CONT IV Last administered on 07/15/19at 21:43; Start 07/15/19 at 22:00; Stop 07/16/19 at 21:59; Status DC Lidocaine HCl (Buffered Lidocaine 1%) 3 ml STK-MED ONCE .ROUTE ; Start 07/13/19 at 10:00; Stop 07/15/19 at 13:57; Status DC Midazolam HCl 100 mg/Sodium Chloride 100 ml @ 7 mls/hr CONT PRN IV SEE PROTOCOL Last administered on 07/27/19at 15:35; Start 07/16/19 at 16:00 Sodium Chloride 90 meq/Potassium Chloride 15 meq/ Potassium Phosphate 18 mmol/ Magnesium Sulfate 8 meq/Calcium Gluconate 15 meq/ Multivitamins 10 ml/Chromium/ Copper/Manganese/ Seleni/Zn 0.5 ml/ Insulin Human Regular 15 unit/ Total Parenteral Nutrition/Amino Acids/Dextrose/ Fat Emulsion Intravenous 1,400 ml @ 58.333 mls/ hr TPN CONT IV Last administered on 07/16/19at 20:34; Start 07/16/19 at 22:00; Stop 07/17/19 at 21:59; Status DC Info (Icu Electrolyte Protocol) 1 ea CONT PRN PRN MC PER PROTOCOL; Start 07/17/19 at 13:15 Sodium Chloride 90 meq/Potassium Chloride 15 meq/ Potassium Phosphate 18 mmol/ Magnesium Sulfate 8 meq/Calcium Gluconate 15 meq/ Multivitamins 10 ml/Chromium/ Copper/Manganese/ Seleni/Zn 0.5 ml/ Insulin Human Regular 15 unit/ Total Parenteral Nutrition/Amino Acids/Dextrose/ Fat Emulsion Intravenous 1,400 ml @ 58.333 mls/ hr TPN CONT IV Last administered on 07/17/19at 22:05; Start 07/17/19 at 22:00; Stop 07/18/19 at 21:59; Status DC Potassium Chloride 15 meq/ Bicarbonate Dialysis Soln w/ out KCl 5,007.5 ml @ 1,000 mls/ hr Q5H1M IV Last administered on 07/20/19at 18:14; Start 07/17/19 at 20:00; Stop 07/21/19 at 13:08; Status DC Potassium Chloride 15 meq/ Bicarbonate Dialysis Soln w/ out KCl 5,007.5 ml @ 1,000 mls/ hr Q5H1M IV Last administered on 07/20/19at 18:14; Start 07/17/19 at 20:00; Stop 07/21/19 at 13:08; Status DC Potassium Chloride 15 meq/ Bicarbonate Dialysis Soln w/ out KCl 5,007.5 ml @ 1,000 mls/ hr Q5H1M IV Last administered on 07/20/19at 18:14; Start 07/17/19 at 20:00; Stop 07/21/19 at 13:08; Status DC Iohexol (Omnipaque 240 Mg/ml) 30 ml 1X ONCE PO Last administered on 07/18/19at 11:30; Start 07/18/19 at 11:30; Stop 07/18/19 at 11:33; Status DC Info (CONTRAST GIVEN -- Rx MONITORING) 1 each PRN DAILY PRN MC SEE COMMENTS; Start 07/18/19 at 11:45; Stop 07/20/19 at 11:44; Status DC Sodium Chloride 90 meq/Potassium Chloride 15 meq/ Potassium Phosphate 18 mmol/ Magnesium Sulfate 8 meq/Calcium Gluconate 15 meq/ Multivitamins 10 ml/Chromium/ Copper/Manganese/ Seleni/Zn 0.5 ml/ Insulin Human Regular 15 unit/ Total Parenteral Nutrition/Amino Acids/Dextrose/ Fat Emulsion Intravenous 1,400 ml @ 58.333 mls/ hr TPN CONT IV Last administered on 07/18/19at 21:47; Start 07/18/19 at 22:00; Stop 07/19/19 at 21:59; Status DC Sodium Chloride 90 meq/Potassium Chloride 15 meq/ Potassium Phosphate 18 mmol/ Magnesium Sulfate 8 meq/Calcium Gluconate 15 meq/ Multivitamins 10 ml/Chromium/ Copper/Manganese/ Seleni/Zn 0.5 ml/ Insulin Human Regular 20 unit/ Total Parenteral Nutrition/Amino Acids/Dextrose/ Fat Emulsion Intravenous 1,400 ml @ 58.333 mls/ hr TPN CONT IV Last administered on 07/19/19at 21:36; Start 07/19/19 at 22:00; Stop 07/20/19 at 21:59; Status DC Alteplase, Recombinant (Cathflo For Central Catheter Clearance) 1 mg 1X ONCE INT CAT Last administered on 07/19/19at 20:03; Start 07/19/19 at 19:30; Stop 07/19/19 at 19:46; Status DC Alteplase, Recombinant (Cathflo For Central Catheter Clearance) 1 mg 1X ONCE INT CAT Last administered on 07/19/19at 22:05; Start 07/19/19 at 22:00; Stop 07/19/19 at 22:01; Status DC Sodium Chloride 90 meq/Potassium Chloride 15 meq/ Potassium Phosphate 18 mmol/ Magnesium Sulfate 8 meq/Calcium Gluconate 15 meq/ Multivitamins 10 ml/Chromium/ Copper/Manganese/ Seleni/Zn 0.5 ml/ Insulin Human Regular 20 unit/ Total Parenteral Nutrition/Amino Acids/Dextrose/ Fat Emulsion Intravenous 1,400 ml @ 58.333 mls/ hr TPN CONT IV Last administered on 07/20/19at 21:30; Start 07/20/19 at 22:00; Stop 07/21/19 at 21:59; Status DC Dexmedetomidine HCl 400 mcg/ Sodium Chloride 100 ml @ 0 mls/hr CONT PRN IV ANXIETY / AGITATION Last administered on 08/21/19at 05:29; Start 07/21/19 at 08:15 Sodium Chloride 500 ml @ 500 mls/hr 1X PRN PRN IV ELEVATED BP, SEE COMMENTS; Start 07/21/19 at 08:15 Atropine Sulfate (ATROPINE 0.5mg SYRINGE) 0.5 mg PRN Q5MIN PRN IV SEE COMMENTS; Start 07/21/19 at 08:15 Furosemide (Lasix) 20 mg 1X ONCE IVP Last administered on 07/21/19at 08:19; Start 07/21/19 at 08:15; Stop 07/21/19 at 08:16; Status DC Lidocaine HCl (Buffered Lidocaine 1%) 3 ml STK-MED ONCE .ROUTE ; Start 07/21/19 at 08:39; Stop 07/21/19 at 08:39; Status DC Lidocaine HCl (Buffered Lidocaine 1%) 6 ml 1X ONCE INJ Last administered on 07/21/19at 09:05; Start 07/21/19 at 09:00; Stop 07/21/19 at 09:06; Status DC Sodium Chloride 90 meq/Potassium Chloride 15 meq/ Potassium Phosphate 18 mmol/ Magnesium Sulfate 8 meq/Calcium Gluconate 15 meq/ Multivitamins 10 ml/Chromium/ Copper/Manganese/ Seleni/Zn 0.5 ml/ Insulin Human Regular 20 unit/ Total Parenteral Nutrition/Amino Acids/Dextrose/ Fat Emulsion Intravenous 1,400 ml @ 58.333 mls/ hr TPN CONT IV Last administered on 07/21/19at 22:45; Start 07/21/19 at 22:00; Stop 07/22/19 at 21:59; Status DC Sodium Chloride 1,000 ml @ 1,000 mls/hr Q1H PRN IV hypotension; Start 07/22/19 at 07:30; Stop 07/22/19 at 13:29; Status DC Albumin Human 200 ml @ 200 mls/hr 1X PRN PRN IV Hypotension Last administered on 07/22/19at 09:36; Start 07/22/19 at 07:30; Stop 07/22/19 at 13:29; Status DC Sodium Chloride (Normal Saline Flush) 10 ml 1X PRN PRN IV AP catheter pack; Start 07/22/19 at 07:30; Stop 07/22/19 at 21:29; Status DC Sodium Chloride (Normal Saline Flush) 10 ml 1X PRN PRN IV [employer]ING [employer]GER catheter pack; Start 07/22/19 at 07:30; Stop 07/23/19 at 07:29; Status DC Sodium Chloride 1,000 ml @ 400 mls/hr Q2H30M PRN IV PATENCY; Start 07/22/19 at 07:30; Stop 07/22/19 at 19:29; Status DC Info (PHARMACY MONITORING -- do not chart) 1 each PRN DAILY PRN MC SEE COMMENTS; Start 07/22/19 at 07:30; Stop 07/22/19 at 13:02; Status DC Info (PHARMACY MONITORING -- do not chart) 1 each PRN DAILY PRN MC SEE COMMENTS; Start 07/22/19 at 07:30; Stop 07/24/19 at 12:45; Status DC Sodium Chloride 90 meq/Potassium Chloride 15 meq/ Potassium Phosphate 10 mmol/ Magnesium Sulfate 8 meq/Calcium Gluconate 15 meq/ Multivitamins 10 ml/Chromium/ Copper/Manganese/ Seleni/Zn 0.5 ml/ Insulin Human Regular 25 unit/ Total Parenteral Nutrition/Amino Acids/Dextrose/ Fat Emulsion Intravenous 1,400 ml @ 58.333 mls/ hr TPN CONT IV Last administered on 07/22/19at 22:19; Start 07/22/19 at 22:00; Stop 07/23/19 at 21:59; Status DC Heparin Sodium (Porcine) (Heparin Sodium) 5,000 unit Q12HR SQ Last administered on 08/14/19at 08:59; Start 07/22/19 at 21:00; Stop 08/14/19 at 10:05; Status DC Ondansetron HCl (Zofran) 4 mg PRN Q6HRS PRN IV NAUSEA/VOMITING; Start 07/25/19 at 07:00; Stop 07/26/19 at 06:59; Status DC Fentanyl Citrate (Fentanyl 2ml Vial) 25 mcg PRN Q5MIN PRN IV MILD PAIN 1-3; Start 07/25/19 at 07:00; Stop 07/26/19 at 06:59; Status DC Fentanyl Citrate (Fentanyl 2ml Vial) 50 mcg PRN Q5MIN PRN IV MODERATE TO SEVERE PAIN; Start 07/25/19 at 07:00; Stop 07/26/19 at 06:59; Status DC Ringer's Solution 1,000 ml @ 30 mls/hr Q24H IV ; Start 07/25/19 at 07:00; Stop 07/25/19 at 18:59; Status DC Lidocaine HCl (Xylocaine-Mpf 1% 2ml Vial) 2 ml PRN 1X PRN ID PRIOR TO IV START; Start 07/25/19 at 07:00; Stop 07/26/19 at 06:59; Status DC Prochlorperazine Edisylate (Compazine) 5 mg PACU PRN PRN IV NAUSEA, MRX1; Start 07/25/19 at 07:00; Stop 07/26/19 at 06:59; Status DC Sodium Chloride 1,000 ml @ 1,000 mls/hr Q1H PRN IV hypotension; Start 07/23/19 at 09:10; Stop 07/23/19 at 15:09; Status DC Albumin Human 200 ml @ 200 mls/hr 1X PRN PRN IV Hypotension Last administered on 07/23/19at 10:10; Start 07/23/19 at 09:15; Stop 07/23/19 at 15:14; Status DC Sodium Chloride 1,000 ml @ 400 mls/hr Q2H30M PRN IV PATENCY; Start 07/23/19 at 09:10; Stop 07/23/19 at 21:09; Status DC Info (PHARMACY MONITORING -- do not chart) 1 each PRN DAILY PRN MC SEE COMMENTS; Start 07/23/19 at 09:15; Stop 07/24/19 at 12:45; Status DC Info (PHARMACY MONITORING -- do not chart) 1 each PRN DAILY PRN MC SEE COMMENTS; Start 07/23/19 at 09:15; Stop 07/24/19 at 12:45; Status DC Sodium Chloride 90 meq/Potassium Chloride 15 meq/ Potassium Phosphate 10 mmol/ Magnesium Sulfate 8 meq/Calcium Gluconate 15 meq/ Multivitamins 10 ml/Chromium/ Copper/Manganese/ Seleni/Zn 0.5 ml/ Insulin Human Regular 25 unit/ Total Parenteral Nutrition/Amino Acids/Dextrose/ Fat Emulsion Intravenous 1,400 ml @ 58.333 mls/ hr TPN CONT IV Last administered on 07/23/19at 22:10; Start 07/23/19 at 22:00; Stop 07/24/19 at 21:59; Status DC Magnesium Sulfate 50 ml @ 25 mls/hr PRN DAILY PRN IV for Mag < 1.7 on am labs Last administered on 08/08/19at 17:27; Start 07/24/19 at 09:15 Sodium Chloride 90 meq/Potassium Chloride 15 meq/ Potassium Phosphate 10 mmol/ Magnesium Sulfate 8 meq/Calcium Gluconate 15 meq/ Multivitamins 10 ml/Chromium/ Copper/Manganese/ Seleni/Zn 0.5 ml/ Insulin Human Regular 25 unit/ Total Parenteral Nutrition/Amino Acids/Dextrose/ Fat Emulsion Intravenous 1,400 ml @ 58.333 mls/ hr TPN CONT IV Last administered on 07/24/19at 21:20; Start 07/24/19 at 22:00; Stop 07/25/19 at 21:59; Status DC Sodium Chloride 1,000 ml @ 1,000 mls/hr Q1H PRN IV hypotension; Start 07/24/19 at 12:23; Stop 07/24/19 at 18:22; Status DC Albumin Human 200 ml @ 200 mls/hr 1X ONCE IV Last administered on 07/24/19at 13:34; Start 07/24/19 at 12:30; Stop 07/24/19 at 13:29; Status DC Diphenhydramine HCl (Benadryl) 25 mg 1X PRN PRN IV ITCHING; Start 07/24/19 at 12:30; Stop 07/25/19 at 12:29; Status DC Diphenhydramine HCl (Benadryl) 25 mg 1X PRN PRN IV ITCHING; Start 07/24/19 at 12:30; Stop 07/25/19 at 12:29; Status DC Info (PHARMACY MONITORING -- do not chart) 1 each PRN DAILY PRN MC SEE COMMENTS; Start 07/24/19 at 12:30; Status Cancel Bupivacaine HCl/ Epinephrine Bitart (Sensorcain-Epi 0.5%-1:[id number] Mpf) 30 ml STK-MED ONCE .ROUTE Last administered on 07/25/19at 11:44; Start 07/25/19 at 11:00; Stop 07/25/19 at 11:01; Status DC Cellulose (Surgicel Fibrillar 1x2) 1 each STK-MED ONCE .ROUTE ; Start 07/25/19 at 11:00; Stop 07/25/19 at 11:01; Status DC Sodium Chloride 90 meq/Potassium Chloride 15 meq/ Potassium Phosphate 10 mmol/ Magnesium Sulfate 12 meq/Calcium Gluconate 15 meq/ Multivitamins 10 ml/Chromium/ Copper/Manganese/ Seleni/Zn 0.5 ml/ Insulin Human Regular 25 unit/ Total Parenteral Nutrition/Amino Acids/Dextrose/ Fat Emulsion Intravenous 1,400 ml @ 58.333 mls/ hr TPN CONT IV Last administered on 07/25/19at 22:24; Start 07/25/19 at 22:00; Stop 07/26/19 at 21:59; Status DC Propofol 20 ml @ As Directed STK-MED ONCE IV ; Start 07/25/19 at 11:07; Stop 07/25/19 at 11:07; Status DC Cellulose (Surgicel Hemostat 4x8) 1 each STK-MED ONCE .ROUTE Last administered on 07/25/19at 11:44; Start 07/25/19 at 11:55; Stop 07/25/19 at 11:56; Status DC Sevoflurane (Ultane) 60 ml STK-MED ONCE IH ; Start 07/25/19 at 12:46; Stop 07/25/19 at 12:46; Status DC Sodium Chloride 1,000 ml @ 1,000 mls/hr Q1H PRN IV hypotension; Start 07/25/19 at 13:51; Stop 07/25/19 at 19:50; Status DC Albumin Human 200 ml @ 200 mls/hr 1X PRN PRN IV Hypotension Last administered on 07/25/19at 14:51; Start 07/25/19 at 14:00; Stop 07/25/19 at 19:59; Status DC Diphenhydramine HCl (Benadryl) 25 mg 1X PRN PRN IV ITCHING; Start 07/25/19 at 14:00; Stop 07/26/19 at 13:59; Status DC Diphenhydramine HCl (Benadryl) 25 mg 1X PRN PRN IV ITCHING; Start 07/25/19 at 14:00; Stop 07/26/19 at 13:59; Status DC Sodium Chloride 1,000 ml @ 400 mls/hr Q2H30M PRN IV PATENCY; Start 07/25/19 at 13:51; Stop 07/26/19 at 01:50; Status DC Info (PHARMACY MONITORING -- do not chart) 1 each PRN DAILY PRN MC SEE COMMENTS; Start 07/25/19 at 14:00; Stop 07/28/19 at 08:16; Status DC Heparin Sodium (Porcine) (Hep Lock Adult) 500 unit STK-MED ONCE IVP ; Start 07/26/19 at 09:29; Stop 07/26/19 at 09:30; Status DC Sodium Chloride 1,000 ml @ 1,000 mls/hr Q1H PRN IV hypotension; Start 07/26/19 at 10:43; Stop 07/26/19 at 16:42; Status DC Sodium Chloride 1,000 ml @ 400 mls/hr Q2H30M PRN IV PATENCY; Start 07/26/19 at 10:43; Stop 07/26/19 at 22:42; Status DC Info (PHARMACY MONITORING -- do not chart) 1 each PRN DAILY PRN MC SEE COMMENTS; Start 07/26/19 at 10:45; Status UNV Info (PHARMACY MONITORING -- do not chart) 1 each PRN DAILY PRN MC SEE COMMENTS; Start 07/26/19 at 10:45; Status UNV Sodium Chloride 90 meq/Potassium Chloride 15 meq/ Magnesium Sulfate 12 meq/Calcium Gluconate 15 meq/ Multivitamins 10 ml/Chromium/ Copper/Manganese/ Seleni/Zn 0.5 ml/ Insulin Human Regular 25 unit/ Total Parenteral Nutrition/Amino Acids/Dextrose/ Fat Emulsion Intravenous 1,400 ml @ 58.333 mls/ hr TPN CONT IV Last administered on 07/26/19at 22:13; Start 07/26/19 at 22:00; Stop 07/27/19 at 21:59; Status DC Sodium Chloride 1,000 ml @ 1,000 mls/hr Q1H PRN IV hypotension; Start 07/27/19 at 07:50; Stop 07/27/19 at 13:49; Status DC Albumin Human 200 ml @ 200 mls/hr 1X ONCE IV ; Start 07/27/19 at 08:00; Stop 07/27/19 at 08:53; Status DC Diphenhydramine HCl (Benadryl) 25 mg 1X PRN PRN IV ITCHING; Start 07/27/19 at 08:00; Stop 07/28/19 at 07:59; Status DC Diphenhydramine HCl (Benadryl) 25 mg 1X PRN PRN IV ITCHING; Start 07/27/19 at 08:00; Stop 07/28/19 at 07:59; Status DC Info (PHARMACY MONITORING -- do not chart) 1 each PRN DAILY PRN MC SEE COMMENTS; Start 07/27/19 at 08:00; Stop 07/28/19 at 08:16; Status DC Albumin Human 50 ml @ 50 mls/hr 1X ONCE IV ; Start 07/27/19 at 08:53; Stop 07/27/19 at 08:56; Status DC Albumin Human 200 ml @ 50 mls/hr PRN 1X PRN IV HYPOTENSION Last administered on 08/02/19at 11:54; Start 07/27/19 at 09:00 Meropenem 500 mg/ Sodium Chloride 50 ml @ 100 mls/hr Q12H IV Last administered on 08/16/19at 10:45; Start 07/27/19 at 10:00; Stop 08/16/19 at 12:37; Status DC Sodium Chloride 90 meq/Magnesium Sulfate 12 meq/ Calcium Gluconate 15 meq/ Multivitamins 10 ml/Chromium/ Copper/Manganese/ Seleni/Zn 0.5 ml/ Insulin Human Regular 25 unit/ Total Parenteral Nutrition/Amino Acids/Dextrose/ Fat Emulsion Intravenous 1,400 ml @ 58.333 mls/ hr TPN CONT IV Last administered on at 21:41; Start 07/27/19 at 22:00; Stop 07/28/19 at 21:59; Status DC Sodium Chloride 1,000 ml @ 1,000 mls/hr Q1H PRN IV hypotension; Start 07/28/19 at 07:58; Stop 07/28/19 at 13:57; Status DC Albumin Human 200 ml @ 200 mls/hr 1X PRN PRN IV Hypotension Last administered on 07/28/19at 09:30; Start 07/28/19 at 08:00; Stop 07/28/19 at 13:59; Status DC Sodium Chloride 1,000 ml @ 400 mls/hr Q2H30M PRN IV PATENCY; Start 07/28/19 at 07:58; Stop 07/28/19 at 19:57; Status DC Info (PHARMACY MONITORING -- do not chart) 1 each PRN DAILY PRN MC SEE COMMENTS; Start 07/28/19 at 08:00; Status Cancel Info (PHARMACY MONITORING -- do not chart) 1 each PRN DAILY PRN MC SEE COMMENTS; Start 07/28/19 at 08:15; Status UNV Sodium Chloride 90 meq/Potassium Phosphate 5 mmol/ Magnesium Sulfate 12 meq/Calcium Gluconate 15 meq/ Multivitamins 10 ml/Chromium/ Copper/Manganese/ Seleni/Zn 0.5 ml/ Insulin Human Regular 30 unit/ Total Parenteral Nutrition/Amino Acids/Dextrose/ Fat Emulsion Intravenous 1,400 ml @ 58.333 mls/ hr TPN CONT IV Last administered on 07/28/19at 22:08; Start 07/28/19 at 22:00; Stop 07/29/19 at 21:59; Status DC Linezolid/Dextrose 300 ml @ 300 mls/hr Q12HR IV Last administered on 08/08/19at 20:40; Start 07/29/19 at 11:00; Stop 08/09/19 at 08:10; Status DC Sodium Chloride 90 meq/Potassium Phosphate 15 mmol/ Magnesium Sulfate 12 meq/Calcium Gluconate 15 meq/ Multivitamins 10 ml/Chromium/ Copper/Manganese/ Seleni/Zn 0.5 ml/ Insulin Human Regular 30 unit/ Total Parenteral Nutrition/Amino Acids/Dextrose/ Fat Emulsion Intravenous 1,400 ml @ 58.333 mls/ hr TPN CONT IV Last administered on 07/29/19at 21:49; Start 07/29/19 at 22:00; Stop 07/30/19 at 21:59; Status DC Sodium Chloride 90 meq/Potassium Phosphate 15 mmol/ Magnesium Sulfate 12 meq/Calcium Gluconate 15 meq/ Multivitamins 10 ml/Chromium/ Copper/Manganese/ Seleni/Zn 0.5 ml/ Insulin Human Regular 40 unit/ Total Parenteral Nutrition/Amino Acids/Dextrose/ Fat Emulsion Intravenous 1,400 ml @ 58.333 mls/ hr TPN CONT IV Last administered on 07/30/19at 21:21; Start 07/30/19 at 22:00; Stop 07/31/19 at 21:59; Status DC Sodium Chloride 1,000 ml @ 1,000 mls/hr Q1H PRN IV hypotension; Start 07/30/19 at 13:26; Stop 07/30/19 at 19:25; Status DC Albumin Human 200 ml @ 200 mls/hr 1X PRN PRN IV Hypotension Last administered on 07/30/19at 15:00; Start 07/30/19 at 13:30; Stop 07/30/19 at 19:29; Status DC Sodium Chloride (Normal Saline Flush) 10 ml 1X PRN PRN IV AP catheter pack; Start 07/30/19 at 13:30; Stop 07/31/19 at 13:29; Status DC Sodium Chloride (Normal Saline Flush) 10 ml 1X PRN PRN IV COMMERCIAL LEASING MANAGER catheter pack; Start 07/30/19 at 13:30; Stop 07/31/19 at 13:29; Status DC Sodium Chloride 1,000 ml @ 400 mls/hr Q2H30M PRN IV PATENCY; Start 07/30/19 at 13:26; Stop 07/31/19 at 01:25; Status DC Info (PHARMACY MONITORING -- do not chart) 1 each PRN DAILY PRN MC SEE COMMENTS; Start 07/30/19 at 13:30; Stop 07/30/19 at 13:33; Status DC Info (PHARMACY MONITORING -- do not chart) 1 each PRN DAILY PRN MC SEE COMMENTS; Start 07/30/19 at 13:30; Stop 07/30/19 at 13:34; Status DC Sodium Chloride 90 meq/Potassium Phosphate 19 mmol/ Magnesium Sulfate 12 meq/Calcium Gluconate 15 meq/ Multivitamins 10 ml/Chromium/ Copper/Manganese/ Seleni/Zn 0.5 ml/ Insulin Human Regular 40 unit/ Total Parenteral Nutrition/Amino Acids/Dextrose/ Fat Emulsion Intravenous 1,400 ml @ 58.333 mls/ hr TPN CONT IV Last administered on 07/31/19at 21:54; Start 07/31/19 at 22:00; Stop 08/01/19 at 21:59; Status DC Sodium Chloride 1,000 ml @ 1,000 mls/hr Q1H PRN IV hypotension; Start 08/01/19 at 09:35; Stop 08/01/19 at 15:34; Status DC Albumin Human 200 ml @ 200 mls/hr 1X PRN PRN IV Hypotension; Start 08/01/19 at 09:45; Stop 08/01/19 at 15:44; Status DC Diphenhydramine HCl (Benadryl) 25 mg 1X PRN PRN IV ITCHING; Start 08/01/19 at 09:45; Stop 08/02/19 at 09:44; Status DC Diphenhydramine HCl (Benadryl) 25 mg 1X PRN PRN IV ITCHING; Start 08/01/19 at 09:45; Stop 08/02/19 at 09:44; Status DC Sodium Chloride 1,000 ml @ 400 mls/hr Q2H30M PRN IV PATENCY; Start 08/01/19 at 09:35; Stop 08/01/19 at 21:34; Status DC Info (PHARMACY MONITORING -- do not chart) 1 each PRN DAILY PRN MC SEE COMMENTS; Start 08/01/19 at 09:45; Status Cancel Sodium Chloride 100 meq/Potassium Phosphate 19 mmol/ Magnesium Sulfate 12 meq/Calcium Gluconate 15 meq/ Multivitamins 10 ml/Chromium/ Copper/Manganese/ Seleni/Zn 0.5 ml/ Insulin Human Regular 40 unit/ Potassium Chloride 20 meq/ Total Parenteral Nutrition/Amino Acids/Dextrose/ Fat Emulsion Intravenous 1,400 ml @ 58.333 mls/ hr TPN CONT IV Last administered on 08/01/19at 22:02; Start 08/01/19 at 22:00; Stop 08/02/19 at 21:59; Status DC Furosemide (Lasix) 40 mg 1X ONCE IVP Last administered on 08/01/19at 14:39; Start 08/01/19 at 14:30; Stop 08/01/19 at 14:31; Status DC Metronidazole 100 ml @ 100 mls/hr Q8HRS IV Last administered on 08/09/19at 06:04; Start 08/02/19 at 10:00; Stop 08/09/19 at 08:10; Status DC Sodium Chloride 1,000 ml @ 1,000 mls/hr Q1H PRN IV hypotension; Start 08/02/19 at 08:00; Stop 08/02/19 at 13:59; Status DC Albumin Human 200 ml @ 200 mls/hr 1X PRN PRN IV Hypotension; Start 08/02/19 at 08:00; Stop 08/02/19 at 13:59; Status DC Sodium Chloride 1,000 ml @ 400 mls/hr Q2H30M PRN IV PATENCY; Start 08/02/19 at 08:00; Stop 08/02/19 at 19:59; Status DC Info (PHARMACY MONITORING -- do not chart) 1 each PRN DAILY PRN MC SEE COMMENTS ; Start 08/02/19 at 11:30; Status UNV Info (PHARMACY MONITORING -- do not chart) 1 each PRN DAILY PRN MC SEE COMMENTS; Start 08/02/19 at 11:30; Stop 08/04/19 at 12:13; Status DC Sodium Chloride 100 meq/Potassium Phosphate 19 mmol/ Magnesium Sulfate 12 m eq/Calcium Gluconate 15 meq/ Multivitamins 10 ml/Chromium/ Copper/Manganese/ Seleni/Zn 0.5 ml/ Insulin Human Regular 40 unit/ Potassium Chloride 20 meq/ Total Parenteral Nutrition/Amino Acids/Dextrose/ Fat Emulsion Intravenous 1,400 ml @ 58.333 mls/ hr TPN CONT IV Last administered on 08/02/19at 21:52; Start 08/02/19 at 22:00; Stop 08/03/19 at 21:59; Status DC Sodium Chloride (Normal Saline Flush) 10 ml QSHIFT PRN IV AFTER MEDS AND BLOOD DRAWS; Start 08/02/19 at 15:00 Sodium Chloride (Normal Saline Flush) 10 ml PRN Q5MIN PRN IV AFTER MEDS AND BLOOD DRAWS; Start 08/02/19 at 15:00 Sodium Chloride (Normal Saline Flush) 20 ml PRN Q5MIN PRN IV AFTER MEDS AND BLOOD DRAWS; Start 08/02/19 at 15:00 Sodium Chloride 100 meq/Potassium Phosphate 19 mmol/ Magnesium Sulfate 12 meq/Calcium Gluconate 15 meq/ Multivitamins 10 ml/Chromium/ Copper/Manganese/ Seleni/Zn 0.5 ml/ Insulin Human Regular 40 unit/ Potassium Chloride 20 meq/ Total Parenteral Nutrition/Amino Acids/Dextrose/ Fat Emulsion Intravenous 1,400 ml @ 58.333 mls/ hr TPN CONT IV Last administered on 08/03/19at 21:20; Start 08/03/19 at 22:00; Stop 08/04/19 at 21:59; Status DC Lidocaine HCl (Buffered Lidocaine 1%) 3 ml STK-MED ONCE .ROUTE ; Start 08/03/19 at 13:16; Stop 08/03/19 at 13:16; Status DC Lidocaine HCl (Buffered Lidocaine 1%) 6 ml 1X ONCE INJ Last administered on 08/03/19at 13:45; Start 08/03/19 at 13:30; Stop 08/03/19 at 13:31; Status DC Albumin Human 100 ml @ 100 mls/hr 1X ONCE IV Last administered on 08/03/19at 15:41; Start 08/03/19 at 15:00; Stop 08/03/19 at 15:59; Status DC Albumin Human 50 ml @ 50 mls/hr 1X ONCE IV Last administered on 08/03/19at 15:00; Start 08/03/19 at 15:00; Stop 08/03/19 at 15:59; Status DC Info (PHARMACY MONITORING -- do not chart) 1 each PRN DAILY PRN MC SEE COMME NTS; Start 08/04/19 at 11:30; Status Cancel Info (PHARMACY MONITORING -- do not chart) 1 each PRN DAILY PRN MC SEE COMMENTS; Start 08/04/19 at 11:30; Status UNV Sodium Chloride 100 meq/Potassium Phosphate 10 mmol/ Magnesium Sulfate 12 meq/Calcium Gluconate 15 meq/ Multivitamins 10 ml/Chromium/ Copper/Manganese/ Seleni/Zn 0.5 ml/ Insulin Human Regular 35 unit/ Potassium Chloride 20 meq/ Total Parenteral Nutrition/Amino Acids/Dextrose/ Fat Emulsion Intravenous 1,400 ml @ 58.333 mls/ hr TPN CONT IV Last administered on 08/04/19at 22:10; Start 08/04/19 at 22:00; Stop 08/05/19 at 21:59; Status DC Sodium Chloride 100 meq/Potassium Phosphate 5 mmol/ Magnesium Sulfate 12 meq/Calcium Gluconate 15 meq/ Multivitamins 10 ml/Chromium/ Copper/Manganese/ Seleni/Zn 0.5 ml/ Insulin Human Regular 35 unit/ Potassium Chloride 20 meq/ Total Parenteral Nutrition/Amino Acids/Dextrose/ Fat Emulsion Intravenous 1,400 ml @ 58.333 mls/ hr TPN CONT IV Last administered on 08/05/19at 22:59; Start 08/05/19 at 22:00; Stop 08/06/19 at 21:59; Status DC Sodium Chloride 1,000 ml @ 1,000 mls/hr Q1H PRN IV hypotension; Start 08/06/19 at 08:27; Stop 08/06/19 at 14:26; Status DC Albumin Human 200 ml @ 200 mls/hr 1X PRN PRN IV Hypotension Last administered on 08/06/19at 09:18; Start 08/06/19 at 08:30; Stop 08/06/19 at 14:29; Status DC Sodium Chloride 1,000 ml @ 400 mls/hr Q2H30M PRN IV PATENCY; Start 08/06/19 at 08:27; Stop 08/06/19 at 20:26; Status DC Info (PHARMACY MONITORING -- do not chart) 1 each PRN DAILY PRN MC SEE COMMENTS; Start 08/06/19 at 08:30; Status Cancel Info (PHARMACY MONITORING -- do not chart) 1 each PRN DAILY PRN MC SEE COMMENTS; Start 08/06/19 at 08:30; Stop 08/14/19 at 13:10; Status DC Sodium Chloride 100 meq/Potassium Chloride 40 meq/ Magnesium Sulfate 15 meq/ Calcium Gluconate 15 meq/ Multivitamins 10 ml/Chromium/ Copper/Manganese/ Seleni/Zn 0.5 ml/ Insulin Human Regular 35 unit/ Total Parenteral Nutrition/Amino Acids/Dextrose/ Fat Emulsion Intravenous 1,400 ml @ 58.333 mls/ hr TPN CONT IV Last administered on 08/06/19at 22:00; Start 08/06/19 at 22:00; Stop 08/07/19 at 21:59; Status DC Potassium Chloride/Water 100 ml @ 100 mls/hr 1X ONCE IV Last administered on 08/06/19at 17:28; Start 08/06/19 at 14:45; Stop 08/06/19 at 15:44; Status DC Sodium Chloride 100 meq/Potassium Chloride 40 meq/ Magnesium Sulfate 15 meq/Calcium Gluconate 15 meq/ Multivitamins 10 ml/Chromium/ Copper/Manganese/ Seleni/Zn 0.5 ml/ Insulin Human Regular 35 unit/ Total Parenteral Nutrition/Amino Acids/Dextrose/ Fat Emulsion Intravenous 1,400 ml @ 58.333 mls/ hr TPN CONT IV Last administered on 08/07/19at 22:46; Start 08/07/19 at 22:00; Stop 08/08/19 at 21:59; Status DC Sodium Chloride 100 meq/Potassium Chloride 40 meq/ Magnesium Sulfate 20 meq/Calcium Gluconate 15 meq/ Multivitamins 10 ml/Chromium/ Copper/Manganese/ Seleni/Zn 0.5 ml/ Insulin Human Regular 35 unit/ Total Parenteral Nutrition/Amino Acids/Dextrose/ Fat Emulsion Intravenous 1,400 ml @ 58.333 mls/ hr TPN CONT IV Last administered on 08/08/19at 22:31; Start 08/08/19 at 22:00; Stop 08/09/19 at 21:59; Status DC Fentanyl Citrate (Fentanyl 2ml Vial) 50 mcg PRN Q2HR PRN IVP PAIN Last administered on 08/15/19at 13:32; Start 08/08/19 at 21:00; Stop 08/16/19 at 12:53; Status DC Fentanyl Citrate (Fentanyl 2ml Vial) 25 mcg PRN Q2HR PRN IVP PAIN; Start 08/08/19 at 21:00; Stop 08/16/19 at 12:54; Status DC Enoxaparin Sodium (Lovenox 100mg Syringe) 100 mg Q12HR SQ ; Start 08/09/19 at 21:00; Status UNV Amino Acids/ Glycerin/ Electrolytes 1,000 ml @ 75 mls/hr [id number] IV ; Start 08/08/19 at 21:15; Status UNV Sodium Chloride 1,000 ml @ 1,000 mls/hr Q1H PRN IV hypotension; Start 08/09/19 at 07:56; Stop 08/09/19 at 13:55; Status DC Albumin Human 200 ml @ 200 mls/hr 1X PRN PRN IV Hypotension Last administered on 08/09/19at 08:40; Start 08/09/19 at 08:00; Stop 08/09/19 at 13:59; Status DC Sodium Chloride 1,000 ml @ 400 mls/hr Q2H30M PRN IV PATENCY; Start 08/09/19 at 07:56; Stop 08/09/19 at 19:55; Status DC Info (PHARMACY MONITORING -- do not chart) 1 each PRN DAILY PRN MC SEE COMMENTS; Start 08/09/19 at 08:00; Status UNV Info (PHARMACY MONITORING -- do not chart) 1 each PRN DAILY PRN MC SEE COMMENTS; Start 08/09/19 at 08:00; Status UNV Daptomycin 430 mg/ Sodium Chloride 50 ml @ 100 mls/hr Q24H IV Last administered on 08/09/19at 12:35; Start 08/09/19 at 09:00; Stop 08/09/19 at 12:49; Status DC Sodium Chloride 100 meq/Potassium Chloride 40 meq/ Magnesium Sulfate 20 meq/Calcium Gluconate 15 meq/ Multivitamins 10 ml/Chromium/ Copper/Manganese/ Seleni/Zn 0.5 ml/ Insulin Human Regular 35 unit/ Total Parenteral Nutrition/Amino Acids/Dextrose/ Fat Emulsion Intravenous 1,400 ml @ 58.333 mls/ hr TPN CONT IV Last administered on 08/09/19at 21:26; Start 08/09/19 at 22:00; Stop 08/10/19 at 21:59; Status DC Daptomycin 430 mg/ Sodium Chloride 50 ml @ 100 mls/hr Q48H IV ; Start 08/11/19 at 09:00; Stop 08/10/19 at 11:55; Status DC Sodium Chloride 100 meq/Potassium Chloride 40 meq/ Magnesium Sulfate 20 meq/Calcium Gluconate 15 meq/ Multivitamins 10 ml/Chromium/ Copper/Manganese/ Seleni/Zn 0.5 ml/ Insulin Human Regular 35 unit/ Total Parenteral Nutrition/Amino Acids/Dextrose/ Fat Emulsion Intravenous 1,400 ml @ 58.333 mls/ hr TPN CONT IV Last administered on 08/10/19at 22:27; Start 08/10/19 at 22:00; Stop 08/11/19 at 21:59; Status DC Daptomycin 430 mg/ Sodium Chloride 50 ml @ 100 mls/hr Q24H IV Last administered on 08/12/19at 15:07; Start 08/10/19 at 13:00; Stop 08/13/19 at 13:15; Status DC Sodium Chloride 100 meq/Potassium Chloride 40 meq/ Magnesium Sulfate 20 meq/Calcium Gluconate 10 meq/ Multivitamins 10 ml/Chromium/ Copper/Manganese/ Seleni/Zn 0.5 ml/ Insulin Human Regular 35 unit/ Total Parenteral Nutrition/Amino Acids/Dextrose/ Fat Emulsion Intravenous 1,400 ml @ 58.333 mls/ hr TPN CONT IV Last administered on 08/12/19at 00:06; Start 08/11/19 at 22:00; Stop 08/12/19 at 21:59; Status DC Alteplase, Recombinant (Cathflo For Central Catheter Clearance) 1 mg 1X ONCE I NT CAT Last administered on 08/12/19at 11:44; Start 08/12/19 at 10:45; Stop 08/12/19 at 10:46; Status DC Ondansetron HCl (Zofran) 4 mg PRN Q6HRS PRN IV NAUSEA/VOMITING; Start 08/15/19 at 07:00; Stop 08/16/19 at 06:59; Status DC Fentanyl Citrate (Fentanyl 2ml Vial) 25 mcg PRN Q5MIN PRN IV MILD PAIN 1-3; Start 08/15/19 at 07:00; Stop 08/16/19 at 06:59; Status DC Fentanyl Citrate (Fentanyl 2ml Vial) 50 mcg PRN Q5MIN PRN IV MODERATE TO SEVERE PAIN Last administered on 08/15/19at 10:17; Start 08/15/19 at 07:00; Stop 08/16/19 at 06:59; Status DC Ringer's Solution 1,000 ml @ 30 mls/hr Q24H IV ; Start 08/15/19 at 07:00; Stop 08/15/19 at 18:59; Status DC Lidocaine HCl (Xylocaine-Mpf 1% 2ml Vial) 2 ml PRN 1X PRN ID PRIOR TO IV START; Start 08/15/19 at 07:00; Stop 08/16/19 at 06:59; Status DC Prochlorperazine Edisylate (Compazine) 5 mg PACU PRN PRN IV NAUSEA, MRX1; Start 08/15/19 at 07:00; Stop 08/16/19 at 06:59; Status DC Sodium Acetate 50 meq/Potassium Acetate 55 meq/ Magnesium Sulfate 20 meq/Calcium Gluconate 10 meq/ Multivitamins 10 ml/Chromium/ Copper/Manganese/ Seleni/Zn 0.5 ml/ Insulin Human Regular 35 unit/ Total Parenteral Nutrition/Amino Acids/Dextrose/ Fat Emulsion Intravenous 1,400 ml @ 58.333 mls/ hr TPN CONT IV ; Start 08/12/19 at 22:00; Stop 08/12/19 at 14:15; Status DC Sodium Acetate 50 meq/Potassium Acetate 55 meq/ Magnesium Sulfate 20 meq/Calcium Gluconate 10 meq/ Multivitamins 10 ml/Chromium/ Copper/Manganese/ Seleni/Zn 0.5 ml/ Insulin Human Regular 35 unit/ Total Parenteral Nutrition/Amino Acids/Dextrose/ Fat Emulsion Intravenous 1,800 ml @ 75 mls/hr TPN CONT IV Last administered on 08/12/19at 22:38; Start 08/12/19 at 22:00; Stop 08/13/19 at 21:59; Status DC Sodium Chloride 1,000 ml @ 1,000 mls/hr Q1H PRN IV hypotension; Start 08/12/19 at 15:31; Stop 08/12/19 at 21:30; Status DC Diphenhydramine HCl (Benadryl) 25 mg 1X PRN PRN IV ITCHING; Start 08/12/19 at 15:45; Stop 08/13/19 at 15:44; Status DC Diphenhydramine HCl (Benadryl) 25 mg 1X PRN PRN IV ITCHING; Start 08/12/19 at 15:45; Stop 08/13/19 at 15:44; Status DC Sodium Chloride 1,000 ml @ 400 mls/hr Q2H30M PRN IV PATENCY; Start 08/12/19 at 15:31; Stop 08/13/19 at 03:30; Status DC Info (PHARMACY MONITORING -- do not chart) 1 each PRN DAILY PRN MC SEE COMMENTS; Start 08/12/19 at 15:45 Sodium Acetate 50 meq/Potassium Acetate 55 meq/ Magnesium Sulfate 20 meq/Calcium Gluconate 10 meq/ Multivitamins 10 ml/Chromium/ Copper/Manganese/ Seleni/Zn 0.5 ml/ Insulin Human Regular 35 unit/ Total Parenteral Nutrition/Amino Acids/Dextrose/ Fat Emulsion Intravenous 1,800 ml @ 75 mls/hr TPN CONT IV Last administered on 08/13/19at 22:03; Start 08/13/19 at 22:00; Stop 08/14/19 at 21:59; Status DC Daptomycin 430 mg/ Sodium Chloride 50 ml @ 100 mls/hr Q24H IV Last administered on 08/18/19at 13:00; Start 08/13/19 at 13:00; Stop 08/18/19 at 20:58; Status DC Heparin Sodium (Porcine) 1000 unit/Sodium Chloride 1,001 ml @ 1,001 mls/hr 1X ONCE IRR ; Start 08/15/19 at 06:00; Stop 08/15/19 at 06:59; Status DC Potassium Acetate 55 meq/Magnesium Sulfate 20 meq/ Calcium Gluconate 10 meq/ Multivitamins 10 ml/Chromium/ Copper/Manganese/ Seleni/Zn 0.5 ml/ Insulin Human Regular 35 unit/ Total Parenteral Nutrition/Amino Acids/Dextrose/ Fat Emulsion Intravenous 1,920 ml @ 80 mls/hr TPN CONT IV Last administered on 08/14/19at 22:10; Start 08/14/19 at 22:00; Stop 08/15/19 at 21:59; Status DC Dexamethasone Sodium Phosphate (Decadron) 4 mg STK-MED ONCE .ROUTE ; Start 08/15/19 at 10:56; Stop 08/15/19 at 10:57; Status DC Ondansetron HCl (Zofran) 4 mg STK-MED ONCE .ROUTE ; Start 08/15/19 at 10:56; Stop 08/15/19 at 10:57; Status DC Rocuronium Lovely (Zemuron) 50 mg STK-MED ONCE .ROUTE ; Start 08/15/19 at 10:56; Stop 08/15/19 at 10:57; Status DC Fentanyl Citrate (Fentanyl 2ml Vial) 100 mcg STK-MED ONCE .ROUTE ; Start 08/15/19 at 10:56; Stop 08/15/19 at 10:57; Status DC Bupivacaine HCl/ Epinephrine Bitart (Sensorcain-Epi 0.5%-1:[id number] Mpf) 30 ml STK-MED ONCE .ROUTE Last administered on 08/15/19at 12:01; Start 08/15/19 at 10:58; Stop 08/15/19 at 10:58; Status DC Cellulose (Surgicel Hemostat 2x14) 1 each STK-MED ONCE .ROUTE ; Start 08/15/19 at 10:58; Stop 08/15/19 at 10:59; Status DC Iohexol (Omnipaque 300 Mg/ml) 50 ml STK-MED ONCE .ROUTE ; Start 08/15/19 at 10:58; Stop 08/15/19 at 10:59; Status DC Cellulose (Surgicel Hemostat 4x8) 1 each STK-MED ONCE .ROUTE ; Start 08/15/19 at 10:58; Stop 08/15/19 at 10:59; Status DC Bisacodyl (Dulcolax Supp) 10 mg STK-MED ONCE .ROUTE ; Start 08/15/19 at 10:59; Stop 08/15/19 at 10:59; Status DC Heparin Sodium (Porcine) 1000 unit/Sodium Chloride 1,001 ml @ 1,001 mls/hr 1X ONCE IRR ; Start 08/15/19 at 12:00; Stop 08/15/19 at 12:59; Status DC Propofol 20 ml @ As Directed STK-MED ONCE IV ; Start 08/15/19 at 11:05; Stop 08/15/19 at 11:05; Status DC Sevoflurane (Ultane) 90 ml STK-MED ONCE IH ; Start 08/15/19 at 11:05; Stop 08/15/19 at 11:05; Status DC Sevoflurane (Ultane) 60 ml STK-MED ONCE IH ; Start 08/15/19 at 12:26; Stop 08/15/19 at 12:27; Status DC Propofol 20 ml @ As Directed STK-MED ONCE IV ; Start 08/15/19 at 12:26; Stop 08/15/19 at 12:27; Status DC Phenylephrine HCl (PHENYLEPHRINE in 0.9% NACL PF) 1 mg STK-MED ONCE IV ; Start 08/15/19 at 12:34; Stop 08/15/19 at 12:34; Status DC Heparin Sodium (Porcine) (Heparin Sodium) 5,000 unit Q12HR SQ Last administered on 08/20/19at 21:54; Start 08/15/19 at 21:00 Sodium Chloride (Normal Saline Flush) 3 ml QSHIFT PRN IV AFTER MEDS AND BLOOD DRAWS; Start 08/15/19 at 13:45 Naloxone HCl (Narcan) 0.4 mg PRN Q2MIN PRN IV SEE INSTRUCTIONS; Start 08/15/19 at 13:45 Sodium Chloride 1,000 ml @ 25 mls/hr Q24H IV Last administered on 08/19/19at 12:35; Start 08/15/19 at 13:37 Naloxone HCl (Narcan) 0.4 mg PRN Q2MIN PRN IV SEE INSTRUCTIONS; Start 08/15/19 at 14:30; Status UNV Sodium Chloride 1,000 ml @ 25 mls/hr Q24H IV ; Start 08/15/19 at 14:30; Status UNV Hydromorphone HCl 30 ml @ 0 mls/hr CONT PRN PRN IV PER PROTOCOL Last administered on 08/20/19at 16:08; Start 08/15/19 at 14:30 Potassium Acetate 55 meq/Magnesium Sulfate 20 meq/ Calcium Gluconate 10 meq/ Multivitamins 10 ml/Chromium/ Copper/Manganese/ Seleni/Zn 0.5 ml/ Insulin Human Regular 35 unit/ Total Parenteral Nutrition/Amino Acids/Dextrose/ Fat Emulsion Intravenous 1,920 ml @ 80 mls/hr TPN CONT IV Last administered on 08/15/19at 22:01; Start 08/15/19 at 22:00; Stop 08/16/19 at 21:59; Status DC Bumetanide (Bumex) 2 mg [id number] IV Last administered on 08/19/19at 13:50; Start 08/16/19 at 14:00; Stop 08/20/19 at 14:10; Status DC Meropenem 1 gm/ Sodium Chloride 100 ml @ 200 mls/hr Q8HRS IV Last administered on 08/21/19at 05:27; Start 08/16/19 at 14:00 Potassium Acetate 55 meq/Magnesium Sulfate 20 meq/ Calcium Gluconate 10 meq/ Multivitamins 10 ml/Chromium/ Copper/Manganese/ Seleni/Zn 0.5 ml/ Insulin Human Regular 35 unit/ Total Parenteral Nutrition/Amino Acids/Dextrose/ Fat Emulsion Intravenous 1,920 ml @ 80 mls/hr TPN CONT IV Last administered on 08/16/19at 22:02; Start 08/16/19 at 22:00; Stop 08/17/19 at 21:59; Status DC Hydromorphone HCl (Dilaudid Standard TUBE REPAIRER) 12 mg STK-MED ONCE IV ; Start 08/15/19 at 14:35; Stop 08/16/19 at 13:53; Status DC Artificial Tears (Artificial Tears) 1 drop PRN Q15MIN PRN OU DRY EYE Last administered on 08/19/19at 12:34; Start 08/17/19 at 05:30 Hydromorphone HCl (Dilaudid Standard TUBE REPAIRER) 12 mg STK-MED ONCE IV ; Start 08/16/19 at 12:05; Stop 08/17/19 at 09:15; Status DC Potassium Acetate 65 meq/Magnesium Sulfate 20 meq/ Calcium Gluconate 10 meq/ Multivitamins 10 ml/Chromium/ Copper/Manganese/ Seleni/Zn 0.5 ml/ Insulin Human Regular 30 unit/ Total Parenteral Nutrition/Amino Acids/Dextrose/ Fat Emulsion Intravenous 1,920 ml @ 80 mls/hr TPN CONT IV Last administered on 08/17/19at 22:22; Start 08/17/19 at 22:00; Stop 08/18/19 at 21:59; Status DC Cyclobenzaprine HCl (Flexeril) 10 mg PRN Q6HRS PRN PO MUSCLE SPASMS; Start 08/18/19 at 10:45 Potassium Acetate 55 meq/Magnesium Sulfate 20 meq/ Calcium Gluconate 10 meq/ Multivitamins 10 ml/Chromium/ Copper/Manganese/ Seleni/Zn 0.5 ml/ Insulin Human Regular 30 unit/ Total Parenteral Nutrition/Amino Acids/Dextrose/ Fat Emulsion Intravenous 1,920 ml @ 80 mls/hr TPN CONT IV Last administered on 08/19/19at 01:00; Start 08/18/19 at 22:00; Stop 08/19/19 at 21:59; Status DC Magnesium Sulfate 50 ml @ 25 mls/hr 1X ONCE IV Last administered on 08/18/19at 17:18; Start 08/18/19 at 12:45; Stop 08/18/19 at 14:44; Status DC Potassium Chloride/Water 100 ml @ 100 mls/hr 1X ONCE IV Last administered on 08/19/19at 11:27; Start 08/19/19 at 12:00; Stop 08/19/19 at 12:59; Status DC Hydromorphone HCl (Dilaudid Standard TUBE REPAIRER) 12 mg STK-MED ONCE IV ; Start 08/17/19 at 10:50; Stop 08/19/19 at 11:02; Status DC Hydromorphone HCl (Dilaudid Standard TUBE REPAIRER) 12 mg STK-MED ONCE IV ; Start 08/18/19 at 13:47; Stop 08/19/19 at 11:03; Status DC Potassium Acetate 30 meq/Magnesium Sulfate 20 meq/ Calcium Gluconate 10 meq/ Multivitamins 10 ml/Chromium/ Copper/Manganese/ Seleni/Zn 0.5 ml/ Insulin Human Regular 30 unit/ Potassium Chloride 30 meq/ Total Parenteral Nutrition/Amino Acids/Dextrose/ Fat Emulsion Intravenous 1,920 ml @ 80 mls/hr TPN CONT IV Last administered on 08/19/19at 22:34; Start 08/19/19 at 22:00; Stop 08/20/19 at 21:59; Status DC Potassium Chloride/Water 100 ml @ 100 mls/hr Q1H IV Last administered on 08/20/19at 13:05; Start 08/20/19 at 07:00; Stop 08/20/19 at 10:59; Status DC Magnesium Sulfate 50 ml @ 25 mls/hr 1X ONCE IV Last administered on 08/20/19at 10:34; Start 08/20/19 at 10:30; Stop 08/20/19 at 12:29; Status DC Potassium Chloride 75 meq/ Magnesium Sulfate 20 meq/Calcium Gluconate 10 meq/ Multivitamins 10 ml/Chromium/ Copper/Manganese/ Seleni/Zn 0.5 ml/ Insulin Human Regular 30 unit/ Total Parenteral Nutrition/Amino Acids/Dextrose/ Fat Emulsion Intravenous 1,920 ml @ 80 mls/hr TPN CONT IV Last administered on 08/20/19at 21:51; Start 08/20/19 at 22:00; Stop 08/21/19 at 21:59 Active Scripts Active Reported Bisoprolol Fumarate 5 Mg Tablet 10 Mg PO DAILY Vitals/I & O Vital Sign - Last 24 Hours 08/20/19 08/20/19 08/20/19 08/20/19 09:00 10:00 11:00 12:00 Pulse 136 136 126 Resp 38 32 29 B/P (MAP) 173/85 (114) 163/76 (105) 113/64 (80) Pulse Ox 100 100 100 O2 Delivery Tracheal Collar Tracheal Collar Tracheal Collar Trach Collar 08/20/19 08/20/19 08/20/19 08/20/19 12:00 13:00 14:00 15:00 Temp 98.5 98.5 Pulse 138 126 112 102 Resp 36 36 28 34 B/P (MAP) 144/77 (99) 91/59 (70) 118/59 (78) 104/62 (76) Pulse Ox 100 100 100 100 O2 Delivery Tracheal Collar Tracheal Collar Tracheal Collar Tracheal Collar 08/20/19 08/20/19 08/20/19 08/20/19 16:00 16:00 16:00 16:38 Temp 98.6 98.6 Pulse 142 Resp 32 B/P (MAP) 134/80 (98) Pulse Ox 100 100 O2 Delivery Trach Collar Trach Collar Tracheal Collar O2 Flow Rate 10.0 08/20/19 08/20/19 08/20/19 08/20/19 17:00 18:00 19:00 20:00 Pulse 114 124 113 Resp 32 33 28 B/P (MAP) 132/77 (95) 132/77 (95) 118/70 (86) Pulse Ox 100 100 99 O2 Delivery Tracheal Collar Tracheal Collar Tracheal Collar Mechanical Ventilator 08/20/19 08/20/19 08/20/19 08/20/19 20:00 21:00 22:00 23:00 Temp 97.7 97.7 Pulse 107 120 92 86 Resp 25 26 25 25 B/P (MAP) 112/61 (78) 141/56 (84) 95/54 (68) 95/47 (63) Pulse Ox 97 98 100 100 O2 Delivery Tracheal Collar Tracheal Collar Tracheal Collar Tracheal Collar 08/21/19 08/21/19 08/21/19 08/21/19 00:00 00:00 01:00 02:00 Temp 97.4 97.4 Pulse 92 74 132 Resp 25 25 B/P (MAP) 99/59 (72) 89/39 (56) 166/78 (107) Pulse Ox 100 100 90 O2 Delivery Tracheal Collar Mechanical Ventilator Tracheal Collar Tracheal Collar 08/21/19 08/21/19 08/21/19 08/21/19 03:00 04:00 04:00 05:00 Temp 97.7 97.7 Pulse 100 78 78 Resp 25 25 25 B/P (MAP) 95/49 (64) 84/44 (57) 99/48 (65) Pulse Ox 97 99 99 O2 Delivery Tracheal Collar Mechanical Ventilator Tracheal Collar Tracheal Collar 08/21/19 08/21/19 06:00 08:08 Pulse 103 Resp 25 B/P (MAP) 115/65 (82) Pulse Ox 100 95 O2 Delivery Tracheal Collar Ventilator Intake and Output 08/20/19 08/20/19 08/21/19 15:00 23:00 07:00 Intake Total 350 ml 1774 ml 1628.5 ml Output Total 775 ml 1045 ml 765 ml Balance -425 ml 729 ml 863.5 ml Hemodynamically unstable?: No Is patient in severe pain?: No Is NPO status required?: No DAVIN LANDEROS MD August 21, 2019 09:00
[2019-08-21] MEDS: PANTOPRAZOLE IV PUSH 40 MG VIAL. IVP SCH (09:19)
[2019-08-21] MEDS: ONDANSETRON PF 4 MG/2 ML VIAL. IV PRN ×3 (09:20→20:18)
--- NOTE | 2019-08-21 12:06 | PDOC ---
SUBJECTIVE ROS stable OBJECTIVE Vital Signs Vital Signs Date Time Temp Pulse Resp B/P (MAP) Pulse Ox O2 Delivery O2 Flow Rate FiO2 08/21/19 08:08 95 Ventilator 08/21/19 06:00 103 25 115/65 (82) 08/21/19 04:00 97.7 97.7 08/20/19 16:38 10.0 I & 0 Intake and Output 08/21/19 07:00 Intake Total 3752.5 ml Output Total 2585 ml Balance 1167.5 ml IV Total 3752.5 ml Output Urine Total 2565 ml Drainage Total 20 ml PHYSICAL EXAM Physical Exam GENERAL: Propped up in bed, HEENT: oral cavity dry NECK: Trach/vent LUNGS: Non labored HEART: S1, S2, regular ABDOMEN: Distended, hypoactive BS, drain placement (08/14 ) : Lind (08/01) EXTREMITIES: Generalized edema, DERMATOLOGIC: Warm and dry. No generalized rash. 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 Moderate pleural effusions, may be slightly improved. Infiltrate/atelectasis in both lung bases. Ascites - post paracentesis on 08/02- 4300 cc of thin, light brown fluid was removed Acute hypoxic resp failure ,bilateral pleural effusion Trach in place , On Vent HTN COVID-19 neg, 07/13 COMMENT/RELEVANT DATA Meds Current Medications Medications (Trade) Dose Ordered Sig/Yvon Start Time Stop Time Status Last Admin Dose Admin Acetaminophen (Tylenol Supp) 650 mg PRN Q6HRS PRN 07/12/19 10:30 08/15/19 00:32 650 MG Acetaminophen (Tylenol) 650 mg PRN Q6HRS PRN 07/09/19 03:36 08/04/19 19:56 650 MG Albumin Human 200 ml @ 200 mls/hr 1X PRN PRN 08/09/19 08:00 08/09/19 13:59 DC 08/09/19 08:40 200 MLS/HR Albuterol Sulfate (Ventolin Neb Soln) 2.5 mg 1X ONCE 07/05/19 22:30 07/05/19 22:31 DC 07/06/19 00:56 2.5 MG Alteplase, Recombinant (Cathflo For Central Catheter Clearance) 1 mg 1X ONCE 08/12/19 10:45 08/12/19 10:46 DC 08/12/19 11:44 1 MG Amino Acids/ Glycerin/ Electrolytes 1,000 ml @ 75 mls/hr [id number] 08/08/19 21:15 UNV Artificial Tears (Artificial Tears) 1 drop PRN Q15MIN PRN 08/17/19 05:30 08/19/19 12:34 1 DROP Atenolol (Tenormin) 100 mg DAILY 07/05/19 09:00 07/04/19 20:08 DC Atropine Sulfate (ATROPINE 0.5mg SYRINGE) 0.5 mg PRN Q5MIN PRN 07/21/19 08:15 Benzocaine (Hurricaine One) 1 spray 1X ONCE 07/08/19 14:30 07/08/19 14:31 DC 07/08/19 16:38 1 SPRAY Bisacodyl (Dulcolax Supp) 10 mg STK-MED ONCE 08/15/19 10:59 08/15/19 10:59 DC Bumetanide (Bumex) 2 mg [id number] 08/16/19 14:00 08/20/19 14:10 DC 08/19/19 13:50 2 MG Bupivacaine HCl/ Epinephrine Bitart (Sensorcain-Epi 0.5%-1:010942 Mpf) 30 ml STK-MED ONCE 08/15/19 10:58 08/15/19 10:58 DC 08/15/19 12:01 7 ML Calcium Carbonate/ Glycine (Tums) 500 mg PRN [id number] PRN 07/06/19 17:45 Calcium Chloride 1000 mg/Sodium Chloride 110 ml @ 220 mls/hr 1X ONCE 07/05/19 22:30 07/05/19 22:59 DC 07/05/19 22:11 220 MLS/HR Calcium Chloride 3000 mg/Sodium Chloride 1,030 ml @ 50 mls/hr [id number] 07/07/19 08:00 07/09/19 15:23 DC 07/09/19 02:17 50 MLS/HR Calcium Gluconate (Calcium Gluconate) 2,000 mg 1X ONCE 07/07/19 02:15 07/07/19 02:16 DC 07/07/19 02:19 2,000 MG Calcium Gluconate 1000 mg/Sodium Chloride 110 ml @ 220 mls/hr 1X ONCE 07/06/19 03:30 07/06/19 03:59 DC 07/06/19 03:21 220 MLS/HR Calcium Gluconate 2000 mg/Sodium Chloride 120 ml @ 220 mls/hr 1X ONCE 07/06/19 07:30 07/06/19 08:02 DC 07/06/19 09:05 220 MLS/HR Cefepime HCl (Maxipime) 2 gm Q12HR 07/13/19 09:00 07/27/19 09:58 DC 07/26/19 20:56 2 GM Cellulose (Surgicel Fibrillar 1x2) 1 each STK-MED ONCE 07/25/19 11:00 07/25/19 11:01 DC Cellulose (Surgicel Hemostat 2x14) 1 each STK-MED ONCE 08/15/19 10:58 08/15/19 10:59 DC Cellulose (Surgicel Hemostat 4x8) 1 each STK-MED ONCE 08/15/19 10:58 08/15/19 10:59 DC Cyclobenzaprine HCl (Flexeril) 10 mg PRN Q6HRS PRN 08/18/19 10:45 Daptomycin 430 mg/ Sodium Chloride 50 ml @ 100 mls/hr Q24H 08/13/19 13:00 08/18/19 20:58 DC 08/18/19 13:00 100 MLS/HR Daptomycin 500 mg/ Sodium Chloride 50 ml @ 100 mls/hr Q48H 07/13/19 08:30 07/29/19 10:07 DC 07/29/19 09:57 100 MLS/HR Dexamethasone Sodium Phosphate (Decadron) 4 mg STK-MED ONCE 08/15/19 10:56 08/15/19 10:57 DC Dexmedetomidine HCl 400 mcg/ Sodium Chloride 100 ml @ 0 mls/hr CONT PRN 07/21/19 08:15 08/21/19 05:29 16.7 MLS/HR Dextrose (Dextrose 50%-Water Syringe) 12.5 gm PRN Q15MIN PRN 07/04/19 09:30 Digoxin (Lanoxin) 125 mcg 1X ONCE 07/07/19 18:00 07/07/19 18:01 DC 07/07/19 17:10 125 MCG Diphenhydramine HCl (Benadryl) 25 mg 1X PRN PRN 08/12/19 15:45 08/13/19 15:44 DC Enoxaparin Sodium (Lovenox 100mg Syringe) 100 mg Q12HR 08/09/19 21:00 UNV Etomidate (Amidate) 8 mg 1X ONCE 07/11/19 08:30 07/11/19 08:31 DC 07/11/19 08:33 8 MG Fentanyl Citrate (Fentanyl 2ml Vial) 100 mcg STK-MED ONCE 08/15/19 10:56 08/15/19 10:57 DC Furosemide (Lasix) 40 mg 1X ONCE 08/01/19 14:30 08/01/19 14:31 DC 08/01/19 14:39 40 MG Heparin Sodium (Porcine) (Hep Lock Adult) 500 unit STK-MED ONCE 07/26/19 09:29 07/26/19 09:30 DC Heparin Sodium (Porcine) (Heparin Sodium) 5,000 unit Q12HR 08/15/19 21:00 08/20/19 21:54 5,000 UNIT Heparin Sodium (Porcine) 1000 unit/Sodium Chloride 1,001 ml @ 1,001 mls/hr 1X ONCE 08/15/19 12:00 08/15/19 12:59 DC Hydromorphone HCl (Dilaudid Standard STREETSWEEPER OPERATOR) 12 mg STK-MED ONCE 08/18/19 13:47 08/19/19 11:03 DC Hydromorphone HCl (Dilaudid) 1 mg PRN Q3HRS PRN 07/05/19 12:00 07/19/19 00:25 DC 07/11/19 05:13 1 MG Info (CONTRAST GIVEN -- Rx MONITORING) 1 each PRN DAILY PRN 07/18/19 11:45 07/20/19 11:44 DC Info (Icu Electrolyte Protocol) 1 ea CONT PRN PRN 07/17/19 13:15 Info (PHARMACY MONITORING -- do not chart) 1 each PRN DAILY PRN 08/12/19 15:45 Info (Tpn Per Pharmacy) 1 each PRN DAILY PRN 07/06/19 12:30 UNV Insulin Human Lispro (HumaLOG) 0-9 UNITS Q6HRS 07/04/19 09:30 08/18/19 17:29 4 UNITS Insulin Human Regular (HumuLIN R VIAL) 5 unit 1X ONCE 07/05/19 22:30 07/05/19 22:31 DC 07/05/19 22:14 5 UNIT Iohexol (Omnipaque 240 Mg/ml) 30 ml 1X ONCE 07/18/19 11:30 07/18/19 11:33 DC 07/18/19 11:30 30 ML Iohexol (Omnipaque 300 Mg/ml) 50 ml STK-MED ONCE 08/15/19 10:58 08/15/19 10:59 DC Iohexol (Omnipaque 350 Mg/ml) 90 ml 1X ONCE 07/04/19 03:30 07/04/19 03:31 DC 07/04/19 03:25 90 ML Ketorolac Tromethamine (Toradol 30mg Vial) 30 mg 1X ONCE 07/04/19 03:00 07/04/19 03:01 DC 07/04/19 02:54 30 MG Lidocaine HCl (Buffered Lidocaine 1%) 6 ml 1X ONCE 08/03/19 13:30 08/03/19 13:31 DC 08/03/19 13:45 9 ML Lidocaine HCl (Glydo (Lidocaine) Jelly) 1 ramu 1X ONCE 07/08/19 14:30 07/08/19 14:31 DC 07/08/19 16:38 1 RAMU Lidocaine HCl (Xylocaine-Mpf 1% 2ml Vial) 2 ml PRN 1X PRN 08/15/19 07:00 08/16/19 06:59 DC Linezolid/Dextrose 300 ml @ 300 mls/hr Q12HR 07/29/19 11:00 08/09/19 08:10 DC 08/08/19 20:40 300 MLS/HR Lorazepam (Ativan Inj) 1 mg PRN Q4HRS PRN 07/07/19 09:00 08/05/19 09:19 DC 08/05/19 03:51 1 MG Magnesium Sulfate 50 ml @ 25 mls/hr 1X ONCE 08/20/19 10:30 08/20/19 12:29 DC 08/20/19 10:34 25 MLS/HR Meropenem 1 gm/ Sodium Chloride 100 ml @ 200 mls/hr Q8HRS 08/16/19 14:00 08/21/19 05:27 200 MLS/HR Meropenem 500 mg/ Sodium Chloride 50 ml @ 100 mls/hr Q12H 07/27/19 10:00 08/16/19 12:37 DC 08/16/19 10:45 100 MLS/HR Metoprolol Tartrate (Lopressor Vial) 5 mg Q6HRS 07/05/19 10:15 07/16/19 08:48 DC 07/14/19 00:12 5 MG Metronidazole 100 ml @ 100 mls/hr Q8HRS 08/02/19 10:00 08/09/19 08:10 DC 08/09/19 06:04 100 MLS/HR Micafungin Sodium 100 mg/Dextrose 100 ml @ 100 mls/hr Q24H 07/11/19 09:00 08/18/19 20:58 DC 08/18/19 08:18 100 MLS/HR Midazolam HCl (Versed) 5 mg 1X ONCE 07/11/19 08:30 07/11/19 08:31 DC Midazolam HCl 100 mg/Sodium Chloride 100 ml @ 7 mls/hr CONT PRN 07/16/19 16:00 07/27/19 15:35 7 MLS/HR Midazolam HCl 50 mg/Sodium Chloride 50 ml @ 0 mls/hr CONT PRN 07/11/19 08:15 07/16/19 15:59 DC 07/14/19 22:39 7 MLS/HR Morphine Sulfate (Morphine Sulfate) 2 mg PRN Q2HR PRN 07/04/19 05:00 07/05/19 14:15 DC 07/05/19 12:26 2 MG Multi-Ingred Cream/Lotion/Oil/ Oint (Artificial Tears Eye Ointment) 1 ramu PRN Q1HR PRN 07/13/19 17:30 08/01/19 08:19 1 RAMU Naloxone HCl (Narcan) 0.4 mg PRN Q2MIN PRN 08/15/19 14:30 UNV Norepinephrine Bitartrate 8 mg/ Dextrose 258 ml @ 17.299 mls/ hr CONT PRN 07/05/19 15:30 08/05/19 09:19 DC 08/02/19 12:48 20.9 MLS/HR Ondansetron HCl (Zofran) 4 mg STK-MED ONCE 08/15/19 10:56 08/15/19 10:57 DC Pantoprazole Sodium (PROTONIX VIAL for IV PUSH) 40 mg DAILYAC 07/04/19 11:30 08/21/19 09:19 40 MG Phenylephrine HCl (PHENYLEPHRINE in 0.9% NACL PF) 1 mg STK-MED ONCE 08/15/19 12:34 08/15/19 12:34 DC Piperacillin Sod/ Tazobactam Sod 4.5 gm/Sodium Chloride 100 ml @ 200 mls/hr 1X ONCE 07/04/19 06:00 07/04/19 06:29 DC 07/04/19 05:44 200 MLS/HR Potassium Chloride 15 meq/ Bicarbonate Dialysis Soln w/ out KCl 5,007.5 ml @ 1,000 mls/ hr Q5H1M 07/17/19 20:00 07/21/19 13:08 DC 07/20/19 18:14 1,000 MLS/HR Potassium Chloride 20 meq/ Bicarbonate Dialysis Soln w/ out KCl 5,010 ml @ 1,000 mls/hr Q5H1M 07/13/19 16:00 07/17/19 19:59 DC 07/17/19 14:54 1,000 MLS/HR Potassium Chloride 75 meq/ Magnesium Sulfate 20 meq/Calcium Gluconate 10 meq/ Multivitamins 10 ml/Chromium/ Copper/Manganese/ Seleni/Zn 0.5 ml/ Insulin Human Regular 30 unit/ Total Parenteral Nutrition/Amino Acids/Dextrose/ Fat Emulsion Intravenous 1,920 ml @ 80 mls/hr TPN CONT 08/20/19 22:00 08/21/19 21:59 08/20/19 21:51 80 MLS/HR Potassium Chloride/Water 100 ml @ 100 mls/hr Q1H 08/20/19 07:00 08/20/19 10:59 DC 08/20/19 13:05 100 MLS/HR Potassium Phosphate 20 mmol/ Sodium Chloride 106.6667 ml @ 51.667 m... 1X ONCE 07/13/19 13:00 07/13/19 15:03 DC 07/13/19 12:51 51.667 MLS/HR Potassium Acetate 30 meq/Magnesium Sulfate 20 meq/ Calcium Gluconate 10 meq/ Multivitamins 10 ml/Chromium/ Copper/Manganese/ Seleni/Zn 0.5 ml/ Insulin Human Regular 30 unit/ Potassium Chloride 30 meq/ Total Parenteral Nutrition/Amino Acids/Dextrose/ Fat Emulsion Intravenous 1,920 ml @ 80 mls/hr TPN CONT 08/19/19 22:00 08/20/19 21:59 DC 08/19/19 22:34 80 MLS/HR Potassium Acetate 55 meq/Magnesium Sulfate 20 meq/ Calcium Gluconate 10 meq/ Multivitamins 10 ml/Chromium/ Copper/Manganese/ Seleni/Zn 0.5 ml/ Insulin Human Regular 30 unit/ Total Parenteral Nutrition/Amino Acids/Dextrose/ Fat Emulsion Intravenous 1,920 ml @ 80 mls/hr TPN CONT 08/18/19 22:00 08/19/19 21:59 DC 08/19/19 01:00 80 MLS/HR Potassium Acetate 55 meq/Magnesium Sulfate 20 meq/ Calcium Gluconate 10 meq/ Multivitamins 10 ml/Chromium/ Copper/Manganese/ Seleni/Zn 0.5 ml/ Insulin Human Regular 35 unit/ Total Parenteral Nutrition/Amino Acids/Dextrose/ Fat Emulsion Intravenous 1,920 ml @ 80 mls/hr TPN CONT 08/16/19 22:00 08/17/19 21:59 DC 08/16/19 22:02 80 MLS/HR Potassium Acetate 65 meq/Magnesium Sulfate 20 meq/ Calcium Gluconate 10 meq/ Multivitamins 10 ml/Chromium/ Copper/Manganese/ Seleni/Zn 0.5 ml/ Insulin Human Regular 30 unit/ Total Parenteral Nutrition/Amino Acids/Dextrose/ Fat Emulsion Intravenous 1,920 ml @ 80 mls/hr TPN CONT 08/17/19 22:00 08/18/19 21:59 DC 08/17/19 22:22 80 MLS/HR Prochlorperazine Edisylate (Compazine) 5 mg PACU PRN PRN 08/15/19 07:00 08/16/19 06:59 DC Propofol 20 ml @ As Directed STK-MED ONCE 08/15/19 12:26 08/15/19 12:27 DC Ringer's Solution 1,000 ml @ 30 mls/hr Q24H 08/15/19 07:00 08/15/19 18:59 DC Rocuronium [place] (Zemuron) 50 mg STK-MED ONCE 08/15/19 10:56 08/15/19 10:57 DC Sevoflurane (Ultane) 60 ml STK-MED ONCE 08/15/19 12:26 08/15/19 12:27 DC Sodium Bicarbonate 50 meq/Sodium Chloride 1,050 ml @ 75 mls/hr Q14H 07/06/19 07:30 07/11/19 10:28 DC 07/10/19 21:10 75 MLS/HR Sodium Acetate 50 meq/Potassium Acetate 55 meq/ Magnesium Sulfate 20 meq/Calcium Gluconate 10 meq/ Multivitamins 10 ml/Chromium/ Copper/Manganese/ Seleni/Zn 0.5 ml/ Insulin Human Regular 35 unit/ Total Parenteral Nutrition/Amino Acids/Dextrose/ Fat Emulsion Intravenous 1,800 ml @ 75 mls/hr TPN CONT 08/13/19 22:00 08/14/19 21:59 DC 08/13/19 22:03 75 MLS/HR Sodium Chloride 1,000 ml @ 25 mls/hr Q24H 08/15/19 14:30 UNV Sodium Chloride (Normal Saline Flush) 3 ml QSHIFT PRN 08/15/19 13:45 Sodium Chloride 90 meq/Calcium Gluconate 10 meq/ Multivitamins 10 ml/Chromium/ Copper/Manganese/ Seleni/Zn 0.5 ml/ Total Parenteral Nutrition/Amino Acids/Dextrose/ Fat Emulsion Intravenous 1,512 ml @ 63 mls/hr TPN CONT 07/06/19 22:00 07/07/19 21:59 DC 07/06/19 22:06 63 MLS/HR Sodium Chloride 90 meq/Calcium Gluconate 10 meq/ Multivitamins 10 ml/Chromium/ Copper/Manganese/ Seleni/Zn 1 ml/ Total Parenteral Nutrition/Amino Acids/Dextrose/ Fat Emulsion Intravenous 55.005 ml @ 2.292 mls/hr TPN CONT 07/06/19 22:00 07/06/19 12:33 DC Sodium Chloride 90 meq/Magnesium Sulfate 10 meq/ Calcium Gluconate 20 meq/ Multivitamins 10 ml/Chromium/ Copper/Manganese/ Seleni/Zn 0.5 ml/ Total Parenteral Nutrition/Amino Acids/Dextrose/ Fat Emulsion Intravenous 1,512 ml @ 63 mls/hr TPN CONT 07/07/19 22:00 07/08/19 21:59 DC 07/07/19 22:25 63 MLS/HR Sodium Chloride 90 meq/Magnesium Sulfate 12 meq/ Calcium Gluconate 15 meq/ Multivitamins 10 ml/Chromium/ Copper/Manganese/ Seleni/Zn 0.5 ml/ Insulin Human Regular 25 unit/ Total Parenteral Nutrition/Amino Acids/Dextrose/ Fat Emulsion Intravenous 1,400 ml @ 58.333 mls/ hr TPN CONT 07/27/19 22:00 07/28/19 21:59 DC 07/27/19 21:41 58.333 MLS/HR Sodium Chloride 90 meq/Potassium Chloride 15 meq/ Magnesium Sulfate 12 meq/Calcium Gluconate 15 meq/ Multivitamins 10 ml/Chromium/ Copper/Manganese/ Seleni/Zn 0.5 ml/ Insulin Human Regular 25 unit/ Total Parenteral Nutrition/Amino Acids/Dextrose/ Fat Emulsion Intravenous 1,400 ml @ 58.333 mls/ hr TPN CONT 07/26/19 22:00 07/27/19 21:59 DC 07/26/19 22:13 58.333 MLS/HR Sodium Chloride 90 meq/Potassium Chloride 15 meq/ Potassium Phosphate 10 mmol/ Magnesium Sulfate 8 meq/Calcium Gluconate 15 meq/ Multivitamins 10 ml/Chromium/ Copper/Manganese/ Seleni/Zn 0.5 ml/ Insulin Human Regular 25 unit/ Total Parenteral Nutrition/Amino Acids/Dextrose/ Fat Emulsion Intravenous 1,400 ml @ 58.333 mls/ hr TPN CONT 07/24/19 22:00 07/25/19 21:59 DC 07/24/19 21:20 58.333 MLS/HR Sodium Chloride 90 meq/Potassium Chloride 15 meq/ Potassium Phosphate 10 mmol/ Magnesium Sulfate 10 meq/Calcium Gluconate 20 meq/ Multivitamins 10 ml/Chromium/ Copper/Manganese/ Seleni/Zn 0.5 ml/ Total Parenteral Nutrition/Amino Acids/Dextrose/ Fat Emulsion Intravenous 1,400 ml @ 58.333 mls/ hr TPN CONT 07/11/19 22:00 07/12/19 21:59 DC 07/11/19 21:42 58.333 MLS/HR Sodium Chloride 90 meq/Potassium Chloride 15 meq/ Potassium Phosphate 10 mmol/ Magnesium Sulfate 12 meq/Calcium Gluconate 15 meq/ Multivitamins 10 ml/Chromium/ Copper/Manganese/ Seleni/Zn 0.5 ml/ Insulin Human Regular 25 unit/ Total Parenteral Nutrition/Amino Acids/Dextrose/ Fat Emulsion Intravenous 1,400 ml @ 58.333 mls/ hr TPN CONT 07/25/19 22:00 07/26/19 21:59 DC 07/25/19 22:24 58.333 MLS/HR Sodium Chloride 90 meq/Potassium Chloride 15 meq/ Potassium Phosphate 15 mmol/ Magnesium Sulfate 10 meq/Calcium Gluconate 15 meq/ Multivitamins 10 ml/Chromium/ Copper/Manganese/ Seleni/Zn 0.5 ml/ Total Parenteral Nutrition/Amino Acids/Dextrose/ Fat Emulsion Intravenous 1,400 ml @ 58.333 mls/ hr TPN CONT 07/12/19 22:00 07/13/19 21:59 DC 07/12/19 22:17 58.333 MLS/HR Sodium Chloride 90 meq/Potassium Chloride 15 meq/ Potassium Phosphate 15 mmol/ Magnesium Sulfate 10 meq/Calcium Gluconate 20 meq/ Multivitamins 10 ml/Chromium/ Copper/Manganese/ Seleni/Zn 0.5 ml/ Total Parenteral Nutrition/Amino Acids/Dextrose/ Fat Emulsion Intravenous 1,200 ml @ 50 mls/hr TPN CONT 07/10/19 22:00 07/10/19 14:17 DC Sodium Chloride 90 meq/Potassium Chloride 15 meq/ Potassium Phosphate 18 mmol/ Magnesium Sulfate 8 meq/Calcium Gluconate 15 meq/ Multivitamins 10 ml/Chromium/ Copper/Manganese/ Seleni/Zn 0.5 ml/ Insulin Human Regular 10 unit/ Total Parenteral Nutrition/Amino Acids/Dextrose/ Fat Emulsion Intravenous 1,400 ml @ 58.333 mls/ hr TPN CONT 07/15/19 22:00 07/16/19 21:59 DC 07/15/19 21:43 58.333 MLS/HR Sodium Chloride 90 meq/Potassium Chloride 15 meq/ Potassium Phosphate 18 mmol/ Magnesium Sulfate 8 meq/Calcium Gluconate 15 meq/ Multivitamins 10 ml/Chromium/ Copper/Manganese/ Seleni/Zn 0.5 ml/ Insulin Human Regular 15 unit/ Total Parenteral Nutrition/Amino Acids/Dextrose/ Fat Emulsion Intravenous 1,400 ml @ 58.333 mls/ hr TPN CONT 07/18/19 22:00 07/19/19 21:59 DC 07/18/19 21:47 58.333 MLS/HR Sodium Chloride 90 meq/Potassium Chloride 15 meq/ Potassium Phosphate 18 mmol/ Magnesium Sulfate 8 meq/Calcium Gluconate 15 meq/ Multivitamins 10 ml/Chromium/ Copper/Manganese/ Seleni/Zn 0.5 ml/ Insulin Human Regular 20 unit/ Total Parenteral Nutrition/Amino Acids/Dextrose/ Fat Emulsion Intravenous 1,400 ml @ 58.333 mls/ hr TPN CONT 07/21/19 22:00 07/22/19 21:59 DC 07/21/19 22:45 58.333 MLS/HR Sodium Chloride 90 meq/Potassium Chloride 15 meq/ Potassium Phosphate 18 mmol/ Magnesium Sulfate 8 meq/Calcium Gluconate 15 meq/ Multivitamins 10 ml/Chromium/ Copper/Manganese/ Seleni/Zn 0.5 ml/ Total Parenteral Nutrition/Amino Acids/Dextrose/ Fat Emulsion Intravenous 1,400 ml @ 58.333 mls/ hr TPN CONT 07/14/19 22:00 07/15/19 21:59 DC 07/14/19 22:00 58.333 MLS/HR Sodium Chloride 90 meq/Potassium Phosphate 15 mmol/ Magnesium Sulfate 12 meq/Calcium Gluconate 15 meq/ Multivitamins 10 ml/Chromium/ Copper/Manganese/ Seleni/Zn 0.5 ml/ Insulin Human Regular 30 unit/ Total Parenteral Nutrition/Amino Acids/Dextrose/ Fat Emulsion Intravenous 1,400 ml @ 58.333 mls/ hr TPN CONT 07/29/19 22:00 07/30/19 21:59 DC 07/29/19 21:49 58.333 MLS/HR Sodium Chloride 90 meq/Potassium Phosphate 15 mmol/ Magnesium Sulfate 12 meq/Calcium Gluconate 15 meq/ Multivitamins 10 ml/Chromium/ Copper/Manganese/ Seleni/Zn 0.5 ml/ Insulin Human Regular 40 unit/ Total Parenteral Nutrition/Amino Acids/Dextrose/ Fat Emulsion Intravenous 1,400 ml @ 58.333 mls/ hr TPN CONT 07/30/19 22:00 07/31/19 21:59 DC 07/30/19 21:21 58.333 MLS/HR Sodium Chloride 90 meq/Potassium Phosphate 19 mmol/ Magnesium Sulfate 12 meq/Calcium Gluconate 15 meq/ Multivitamins 10 ml/Chromium/ Copper/Manganese/ Seleni/Zn 0.5 ml/ Insulin Human Regular 40 unit/ Total Parenteral Nutrition/Amino Acids/Dextrose/ Fat Emulsion Intravenous 1,400 ml @ 58.333 mls/ hr TPN CONT 07/31/19 22:00 08/01/19 21:59 DC 07/31/19 21:54 58.333 MLS/HR Sodium Chloride 90 meq/Potassium Phosphate 5 mmol/ Magnesium Sulfate 12 meq/Calcium Gluconate 15 meq/ Multivitamins 10 ml/Chromium/ Copper/Manganese/ Seleni/Zn 0.5 ml/ Insulin Human Regular 30 unit/ Total Parenteral Nutrition/Amino Acids/Dextrose/ Fat Emulsion Intravenous 1,400 ml @ 58.333 mls/ hr TPN CONT 07/28/19 22:00 07/29/19 21:59 DC 07/28/19 22:08 58.333 MLS/HR Sodium Chloride 100 meq/Potassium Chloride 40 meq/ Magnesium Sulfate 15 meq/Calcium Gluconate 15 meq/ Multivitamins 10 ml/Chromium/ Copper/Manganese/ Seleni/Zn 0.5 ml/ Insulin Human Regular 35 unit/ Total Parenteral Nutrition/Amino Acids/Dextrose/ Fat Emulsion Intravenous 1,400 ml @ 58.333 mls/ hr TPN CONT 08/07/19 22:00 08/08/19 21:59 DC 08/07/19 22:46 58.333 MLS/HR Sodium Chloride 100 meq/Potassium Chloride 40 meq/ Magnesium Sulfate 20 meq/Calcium Gluconate 10 meq/ Multivitamins 10 ml/Chromium/ Copper/Manganese/ Seleni/Zn 0.5 ml/ Insulin Human Regular 35 unit/ Total Parenteral Nutrition/Amino Acids/Dextrose/ Fat Emulsion Intravenous 1,400 ml @ 58.333 mls/ hr TPN CONT 08/11/19 22:00 08/12/19 21:59 DC 08/12/19 00:06 58.333 MLS/HR Sodium Chloride 100 meq/Potassium Chloride 40 meq/ Magnesium Sulfate 20 meq/Calcium Gluconate 15 meq/ Multivitamins 10 ml/Chromium/ Copper/Manganese/ Seleni/Zn 0.5 ml/ Insulin Human Regular 35 unit/ Total Parenteral Nutrition/Amino Acids/Dextrose/ Fat Emulsion Intravenous 1,400 ml @ 58.333 mls/ hr TPN CONT 08/10/19 22:00 08/11/19 21:59 DC 08/10/19 22:27 58.333 MLS/HR Sodium Chloride 100 meq/Potassium Phosphate 10 mmol/ Magnesium Sulfate 12 meq/Calcium Gluconate 15 meq/ Multivitamins 10 ml/Chromium/ Copper/Manganese/ Seleni/Zn 0.5 ml/ Insulin Human Regular 35 unit/ Potassium Chloride 20 meq/ Total Parenteral Nutrition/Amino Acids/Dextrose/ Fat Emulsion Intravenous 1,400 ml @ 58.333 mls/ hr TPN CONT 08/04/19 22:00 08/05/19 21:59 DC 08/04/19 22:10 58.333 MLS/HR Sodium Chloride 100 meq/Potassium Phosphate 19 mmol/ Magnesium Sulfate 12 meq/Calcium Gluconate 15 meq/ Multivitamins 10 ml/Chromium/ Copper/Manganese/ Seleni/Zn 0.5 ml/ Insulin Human Regular 40 unit/ Potassium Chloride 20 meq/ Total Parenteral Nutrition/Amino Acids/Dextrose/ Fat Emulsion Intravenous 1,400 ml @ 58.333 mls/ hr TPN CONT 08/03/19 22:00 08/04/19 21:59 DC 08/03/19 21:20 58.333 MLS/HR Sodium Chloride 100 meq/Potassium Phosphate 5 mmol/ Magnesium Sulfate 12 meq/Calcium Gluconate 15 meq/ Multivitamins 10 ml/Chromium/ Copper/Manganese/ Seleni/Zn 0.5 ml/ Insulin Human Regular 35 unit/ Potassium Chloride 20 meq/ Total Parenteral Nutrition/Amino Acids/Dextrose/ Fat Emulsion Intravenous 1,400 ml @ 58.333 mls/ hr TPN CONT 08/05/19 22:00 08/06/19 21:59 DC 08/05/19 22:59 58.333 MLS/HR Succinylcholine Chloride (Anectine) 120 mg 1X ONCE 07/11/19 08:30 07/11/19 08:31 DC 07/11/19 08:34 120 MG Lab Laboratory Tests Test 08/20/19 13:34 08/20/19 18:06 08/21/19 00:03 08/21/19 05:25 Glucose (Fingerstick) 146 mg/dL (70-99) 135 mg/dL (70-99) 122 mg/dL (70-99) 113 mg/dL (70-99) Test 08/21/19 05:30 08/21/19 07:55 White Blood Count 9.7 x10^3/uL (4.0-11.0) Red Blood Count 2.44 x10^6/uL (3.50-5.40) Hemoglobin 7.1 g/dL (12.0-15.5) Hematocrit 22.8 % (36.0-47.0) Mean Corpuscular Volume 93 fL (79-100) Mean Corpuscular Hemoglobin 29 pg (25-35) Mean Corpuscular Hemoglobin Concent 31 g/dL (31-37) Red Cell Distribution Width 18.1 % (11.5-14.5) Platelet Count 408 x10^3/uL (140-400) Neutrophils (%) (Auto) 79 % (31-73) Lymphocytes (%) (Auto) 14 % (24-48) Monocytes (%) (Auto) 5 % (0-9) Eosinophils (%) (Auto) 2 % (0-3) Basophils (%) (Auto) 0 % (0-3) Neutrophils # (Auto) 7.7 x10^3/uL (1.8-7.7) Lymphocytes # (Auto) 1.4 x10^3/uL (1.0-4.8) Monocytes # (Auto) 0.5 x10^3/uL (0.0-1.1) Eosinophils # (Auto) 0.2 x10^3/uL (0.0-0.7) Basophils # (Auto) 0.0 x10^3/uL (0.0-0.2) Sodium Level 153 mmol/L (136-145) Potassium Level 4.3 mmol/L (3.5-5.1) Chloride Level 114 mmol/L (98-107) Carbon Dioxide Level 38 mmol/L (21-32) Anion Gap 1 (6-14) Blood Urea Nitrogen 47 mg/dL (7-20) Creatinine 1.0 mg/dL (0.6-1.0) Estimated GFR (Cockcroft-Gault) 58.9 Glucose Level 125 mg/dL (70-99) Calcium Level 8.7 mg/dL (8.5-10.1) O2 Saturation 97 % (92-99) Arterial Blood pH 7.27 (7.35-7.45) Arterial Blood pCO2 at Patient Temp 75 mmHg (35-46) Arterial Blood pO2 at Patient Temp 123 mmHg (75-108) Arterial Blood HCO3 34 mmol/L (21-28) Arterial Blood Base Excess 6 mmol/L (-3-3) Oxyhemoglobin 96.8 % Methemoglobin 0.5 % (0.0-1.9) Carbon Monoxide, Quantitative 0.1 % (0.0-1.9) FiO2 40 Results All relevant outside records, renal labs, imaging studies, telemetry/EKG's were reviewed. VERENA KENT MD August 21, 2019 12:06
--- NOTE | 2019-08-21 12:27 | PDOC ---
G I PROGRESS NOTE Subjective Awake, alert. Would love to be off ventilator. Objective Became hypercapnic on increased narcotic. Physical Exam Lungs clear anteriorly. RRR Abdomen somewhat distended. Do hear occasional bowel sounds. Review of Relevant I have reviewed the following items kolby (where applicable) has been applied. Labs Laboratory Tests Test 08/19/19 17:31 08/19/19 23:34 08/20/19 05:45 08/20/19 05:48 Glucose (Fingerstick) 140 mg/dL (70-99) 134 mg/dL (70-99) 149 mg/dL (70-99) White Blood Count 9.7 x10^3/uL (4.0-11.0) Red Blood Count 2.46 x10^6/uL (3.50-5.40) Hemoglobin 7.2 g/dL (12.0-15.5) Hematocrit 22.4 % (36.0-47.0) Mean Corpuscular Volume 91 fL (79-100) Mean Corpuscular Hemoglobin 29 pg (25-35) Mean Corpuscular Hemoglobin Concent 32 g/dL (31-37) Red Cell Distribution Width 18.1 % (11.5-14.5) Platelet Count 419 x10^3/uL (140-400) Neutrophils (%) (Auto) 77 % (31-73) Lymphocytes (%) (Auto) 16 % (24-48) Monocytes (%) (Auto) 5 % (0-9) Eosinophils (%) (Auto) 2 % (0-3) Basophils (%) (Auto) 0 % (0-3) Neutrophils # (Auto) 7.4 x10^3/uL (1.8-7.7) Lymphocytes # (Auto) 1.5 x10^3/uL (1.0-4.8) Monocytes # (Auto) 0.4 x10^3/uL (0.0-1.1) Eosinophils # (Auto) 0.2 x10^3/uL (0.0-0.7) Basophils # (Auto) 0.0 x10^3/uL (0.0-0.2) Sodium Level 154 mmol/L (136-145) Potassium Level 2.9 mmol/L (3.5-5.1) Chloride Level 111 mmol/L (98-107) Carbon Dioxide Level 34 mmol/L (21-32) Anion Gap 9 (6-14) Blood Urea Nitrogen 45 mg/dL (7-20) Creatinine 1.0 mg/dL (0.6-1.0) Estimated GFR (Cockcroft-Gault) 58.9 Glucose Level 153 mg/dL (70-99) Calcium Level 8.6 mg/dL (8.5-10.1) Phosphorus Level 3.6 mg/dL (2.6-4.7) Magnesium Level 1.8 mg/dL (1.8-2.4) Test 08/20/19 13:34 08/20/19 18:06 08/21/19 00:03 08/21/19 05:25 Glucose (Fingerstick) 146 mg/dL (70-99) 135 mg/dL (70-99) 122 mg/dL (70-99) 113 mg/dL (70-99) Test 08/21/19 05:30 08/21/19 07:55 White Blood Count 9.7 x10^3/uL (4.0-11.0) Red Blood Count 2.44 x10^6/uL (3.50-5.40) Hemoglobin 7.1 g/dL (12.0-15.5) Hematocrit 22.8 % (36.0-47.0) Mean Corpuscular Volume 93 fL (79-100) Mean Corpuscular Hemoglobin 29 pg (25-35) Mean Corpuscular Hemoglobin Concent 31 g/dL (31-37) Red Cell Distribution Width 18.1 % (11.5-14.5) Platelet Count 408 x10^3/uL (140-400) Neutrophils (%) (Auto) 79 % (31-73) Lymphocytes (%) (Auto) 14 % (24-48) Monocytes (%) (Auto) 5 % (0-9) Eosinophils (%) (Auto) 2 % (0-3) Basophils (%) (Auto) 0 % (0-3) Neutrophils # (Auto) 7.7 x10^3/uL (1.8-7.7) Lymphocytes # (Auto) 1.4 x10^3/uL (1.0-4.8) Monocytes # (Auto) 0.5 x10^3/uL (0.0-1.1) Eosinophils # (Auto) 0.2 x10^3/uL (0.0-0.7) Basophils # (Auto) 0.0 x10^3/uL (0.0-0.2) Sodium Level 153 mmol/L (136-145) Potassium Level 4.3 mmol/L (3.5-5.1) Chloride Level 114 mmol/L (98-107) Carbon Dioxide Level 38 mmol/L (21-32) Anion Gap 1 (6-14) Blood Urea Nitrogen 47 mg/dL (7-20) Creatinine 1.0 mg/dL (0.6-1.0) Estimated GFR (Cockcroft-Gault) 58.9 Glucose Level 125 mg/dL (70-99) Calcium Level 8.7 mg/dL (8.5-10.1) O2 Saturation 97 % (92-99) Arterial Blood pH 7.27 (7.35-7.45) Arterial Blood pCO2 at Patient Temp 75 mmHg (35-46) Arterial Blood pO2 at Patient Temp 123 mmHg (75-108) Arterial Blood HCO3 34 mmol/L (21-28) Arterial Blood Base Excess 6 mmol/L (-3-3) Oxyhemoglobin 96.8 % Methemoglobin 0.5 % (0.0-1.9) Carbon Monoxide, Quantitative 0.1 % (0.0-1.9) FiO2 40 Laboratory Tests Test 08/20/19 13:34 08/20/19 18:06 08/21/19 00:03 08/21/19 05:25 Glucose (Fingerstick) 146 mg/dL (70-99) 135 mg/dL (70-99) 122 mg/dL (70-99) 113 mg/dL (70-99) Test 08/21/19 05:30 08/21/19 07:55 White Blood Count 9.7 x10^3/uL (4.0-11.0) Red Blood Count 2.44 x10^6/uL (3.50-5.40) Hemoglobin 7.1 g/dL (12.0-15.5) Hematocrit 22.8 % (36.0-47.0) Mean Corpuscular Volume 93 fL (79-100) Mean Corpuscular Hemoglobin 29 pg (25-35) Mean Corpuscular Hemoglobin Concent 31 g/dL (31-37) Red Cell Distribution Width 18.1 % (11.5-14.5) Platelet Count 408 x10^3/uL (140-400) Neutrophils (%) (Auto) 79 % (31-73) Lymphocytes (%) (Auto) 14 % (24-48) Monocytes (%) (Auto) 5 % (0-9) Eosinophils (%) (Auto) 2 % (0-3) Basophils (%) (Auto) 0 % (0-3) Neutrophils # (Auto) 7.7 x10^3/uL (1.8-7.7) Lymphocytes # (Auto) 1.4 x10^3/uL (1.0-4.8) Monocytes # (Auto) 0.5 x10^3/uL (0.0-1.1) Eosinophils # (Auto) 0.2 x10^3/uL (0.0-0.7) Basophils # (Auto) 0.0 x10^3/uL (0.0-0.2) Sodium Level 153 mmol/L (136-145) Potassium Level 4.3 mmol/L (3.5-5.1) Chloride Level 114 mmol/L (98-107) Carbon Dioxide Level 38 mmol/L (21-32) Anion Gap 1 (6-14) Blood Urea Nitrogen 47 mg/dL (7-20) Creatinine 1.0 mg/dL (0.6-1.0) Estimated GFR (Cockcroft-Gault) 58.9 Glucose Level 125 mg/dL (70-99) Calcium Level 8.7 mg/dL (8.5-10.1) O2 Saturation 97 % (92-99) Arterial Blood pH 7.27 (7.35-7.45) Arterial Blood pCO2 at Patient Temp 75 mmHg (35-46) Arterial Blood pO2 at Patient Temp 123 mmHg (75-108) Arterial Blood HCO3 34 mmol/L (21-28) Arterial Blood Base Excess 6 mmol/L (-3-3) Oxyhemoglobin 96.8 % Methemoglobin 0.5 % (0.0-1.9) Carbon Monoxide, Quantitative 0.1 % (0.0-1.9) FiO2 40 Microbiology 08/18/19 Aerobic Culture, Resulted Pending 08/18/19 Aerobic Culture Result 1 (ALEXANDRA), Resulted Pending 08/18/19 Gram Stain - Final, Resulted 08/18/19 Gram Stain Result 1 (ALEXANDRA) - Final, Resulted 08/18/19 Gram Stain Result 2 (ALEXANDRA) - Final, Resulted 08/17/19 Blood Culture - Preliminary, Resulted NO GROWTH AFTER 3 DAYS 08/15/19 Aerobic and Anaerobic Culture - Preliminary, Resulted 08/15/19 Anaerobic Culture Result 1 (ALEXANDRA) - Preliminary, Resulted 08/15/19 Aerobic Culture - Final, Resulted 08/15/19 Aerobic Culture Result 1 (ALEXANDRA) - Final, Resulted 08/15/19 Gram Stain - Final, Resulted 08/15/19 Gram Stain Result 1 (ALEXANDRA) - Final, Resulted 08/15/19 Gram Stain Result 2 (ALEXANDRA) - Final, Resulted 07/31/19 Urine Culture - Final, Complete 07/31/19 Urine Culture Result 1 (ALEXANDRA) - Final, Complete Vitals/I & O Vital Sign - Last 24 Hours 08/20/19 08/20/19 08/20/19 08/20/19 13:00 14:00 15:00 16:00 Pulse 126 112 102 Resp 36 28 34 B/P (MAP) 91/59 (70) 118/59 (78) 104/62 (76) Pulse Ox 100 100 100 O2 Delivery Tracheal Collar Tracheal Collar Tracheal Collar Trach Collar 08/20/19 08/20/19 08/20/19 08/20/19 16:00 16:00 16:38 17:00 Temp 98.6 98.6 Pulse 142 114 Resp 32 32 B/P (MAP) 134/80 (98) 132/77 (95) Pulse Ox 100 100 100 O2 Delivery Trach Collar Tracheal Collar Tracheal Collar O2 Flow Rate 10.0 08/20/19 08/20/19 08/20/19 08/20/19 18:00 19:00 20:00 20:00 Temp 97.7 97.7 Pulse 124 113 107 Resp 33 28 25 B/P (MAP) 132/77 (95) 118/70 (86) 112/61 (78) Pulse Ox 100 99 97 O2 Delivery Tracheal Collar Tracheal Collar Mechanical Ventilator Tracheal Collar 08/20/19 08/20/19 08/20/19 08/21/19 21:00 22:00 23:00 00:00 Temp 97.4 97.4 Pulse 120 92 86 92 Resp 26 25 25 26 B/P (MAP) 141/56 (84) 95/54 (68) 95/47 (63) 99/59 (72) Pulse Ox 98 100 100 100 O2 Delivery Tracheal Collar Tracheal Collar Tracheal Collar Tracheal Collar 08/21/19 08/21/19 08/21/19 08/21/19 00:00 01:00 02:00 03:00 Pulse 74 132 100 Resp 25 25 25 B/P (MAP) 89/39 (56) 166/78 (107) 95/49 (64) Pulse Ox 100 90 97 O2 Delivery Mechanical Ventilator Tracheal Collar Tracheal Collar Tracheal Collar 08/21/19 08/21/19 08/21/19 08/21/19 04:00 04:00 05:00 06:00 Temp 97.7 97.7 Pulse 78 78 103 Resp 25 25 25 B/P (MAP) 84/44 (57) 99/48 (65) 115/65 (82) Pulse Ox 99 99 100 O2 Delivery Mechanical Ventilator Tracheal Collar Tracheal Collar Tracheal Collar 08/21/19 08/21/19 08:08 12:17 Pulse Ox 95 96 O2 Delivery Ventilator Ventilator Intake and Output0 08/20/19 08/20/19 08/21/19 15:00 23:00 07:00 Intake Total 350 ml 1774 ml 1628.5 ml Output Total 775 ml 1045 ml 765 ml Balance -425 ml 729 ml 863.5 ml Problem List Problems Medical Problems: (1) Acute pancreatitis Status: Acute (2) Cholelithiasis Status: Acute Assessment Biliary pancreatitis with MOSF. Plan of Care Note Continue weaning attempts, other. Hemodynamically unstable?: No Is patient in severe pain?: No Is NPO status required?: Yes MARY RIVAS MD August 21, 2019 12:27
[2019-08-21] MEDS: HEPARIN for SUB-Q USE 5,000 UNIT/ML VIAL. SQ SCH ×2 (12:41→21:12)
[2019-08-21] MEDS: TPN PER PHARMACY MC PRN (12:44)
--- NOTE | 2019-08-21 12:44 | NUR ---
Pharmacy TPN Dosing Note S: SCOTT AVILA is a 48 year old F Currently receiving Central Continuous TPN started 07/06/19 B:Pertinent PMH: Necrotizing pancreatitis Height: 5 feet, 8 inches Weight: 103.1 kg Current diet: NPO LABS: Sodium: 153 Potassium: 4.3 Chloride: 114 Calcium: 8.7 Corrected Calcium: 9.74 Magnesium: 1.8 CO2: 38 SCr: 1.0 Glucose: 113-125 Albumin: 2.7 AST: 21 ALT: 11 TPN FORMULA: TPN TYPE: Central Continuous AMINO ACIDS: 90 gm DEXTROSE: 225 gm LIPIDS: 30 gm POTASSIUM CHLORIDE: 75 mEq MAGNESIUM: 20 mEq CALCIUM: 10 mEq INSULIN: 25 units MULTIPLE VITAMIN: 10 ml TRACE ELEMENTS: 0.5 ml TPN PLAN: -Electrolytes WNL - continue same lytes in TPN. -Blood glucose below goal range of 140-180 for ICU patients. Reduce TPN regular insulin to 25 units/day. -CMP, mag, phos, triglycerides tomorrow. R: Continue TPN @ current rate and above formula. Will monitor electrolytes, glucose, and tolerance to TPN. SHARON CHRISTIANSON [facility], 08/21/19 1926
[2019-08-21] MEDS: PROCHLORPERAZINE 10 MG/2 ML VIAL. IV PRN ×2 (13:01→18:13)
[2019-08-21] MEDS: IV NORMAL SALINE 1000ML BAG 1,000 ML IV SCH ×2 (13:37→19:49)
[2019-08-21 16:08] LABS: BASE EXCESS COOX 10 mmol/L (-3-3); HCO3 COOX 35 mmol/L (21-28); METHEMOGLOBIN 0.4 % (0.0-1.9); OXYHEMOGLOBIN 92.7 %; PCO2 COOX 49 mmHg (35-46); PO2 COOX 73 mmHg (75-108); SAT O2 COOX 93 % (92-99)
[2019-08-21] MEDS ORDERED: DEXTROSE 70% IV SCH ×9 (22:00)
[2019-08-21] MEDS ORDERED: [UNRECOGNIZED DRUG - OTHER] IV SCH ×9 (22:00)
[2019-08-21] MEDS ORDERED: AMINO ACID IV SCH ×9 (22:00)
[2019-08-21] MEDS ORDERED: TOTAL PARENTERAL NUTRITION IV SCH ×9 (22:00)
[2019-08-21] MEDS: ACETAMINOPHEN 650 MG SUPP.RECT. PR PRN (23:26)
[2019-08-22] VITALS (23 sets, daily range): BP systolic 104–184; BP diastolic 58–97
[2019-08-22] MEDS: PROCHLORPERAZINE 10 MG/2 ML VIAL. IV PRN ×2 (00:15→06:06)
[2019-08-22] MEDS: ONDANSETRON PF 4 MG/2 ML VIAL. IV PRN ×3 (02:11→21:18)
[2019-08-22] MEDS: DEXMEDETOMIDINE 400 MCG in IV NORMAL SALINE 100ML 96 ML IV PRN ×3 (05:52→18:21)
[2019-08-22] MEDS: INSULIN LISPRO 300 UNITS/3 ML VIAL. SQ SCH ×4 (06:00→18:00)
[2019-08-22] MEDS: MEROPENEM 1 GM in IV NORMAL SALINE 100ML 100 ML IV SCH ×3 (06:06→23:06)
[2019-08-22 06:46] LABS: ALBUMIN 1.8 g/dL (3.4-5.0); ALBUMIN/GLOBULIN RATIO 0.5 (1.0-1.7); CALCIUM 8.8 mg/dL (8.5-10.1); CREATININE 0.9 mg/dL (0.6-1.0); GFR 66.5; MAGNESIUM 2.2 mg/dL (1.8-2.4); PHOSPHORUS 3.4 mg/dL (2.6-4.7); TOTAL BILIRUBIN 0.5 mg/dL (0.2-1.0); TOTAL PROTEIN 5.6 g/dL (6.4-8.2)
[2019-08-22] MEDS ORDERED: HYDROmorphone 2 MG/ML VIAL IVP PRN (09:00)
--- NOTE | 2019-08-22 09:15 | PDOC ---
PULMONARY PROGRESS NOTES Subjective Patient intubated on 07/10 , s/p trach 07/24, Has tolerated PM valve well until 08/20 on CPAP, awake. ABG with worsening hypercapnia 08/20 ,[employer] dilaudid, dose reduced Vitals Vital Signs Date Time Temp Pulse Resp B/P (MAP) Pulse Ox O2 Delivery O2 Flow Rate FiO2 08/22/19 08:00 97 Ventilator 08/22/19 06:00 106 41 120/63 (82) 08/22/19 04:00 100.3 100.3 ROS: No Nausea, No Chest Pain, No Abdominal Pain, No Increase Cough General: Alert, Oriented X4, No acute distress HEENT: Other (nc at perrl nose clear nech trach site ok no lad no thyromegaly) Lungs: Crackles Cardiovascular: S1, S2 Abdomen: Soft, Non-tender, Other (firm) Neuro Exam: Alert Extremities: Other (+3 generalized edema ) Skin: Warm, Dry Labs Laboratory Tests Test 08/20/19 13:34 08/20/19 18:06 08/21/19 00:03 08/21/19 05:25 Glucose (Fingerstick) 146 mg/dL (70-99) 135 mg/dL (70-99) 122 mg/dL (70-99) 113 mg/dL (70-99) Test 08/21/19 05:30 08/21/19 07:55 08/21/19 12:47 08/21/19 16:09 White Blood Count 9.7 x10^3/uL (4.0-11.0) Red Blood Count 2.44 x10^6/uL (3.50-5.40) Hemoglobin 7.1 g/dL (12.0-15.5) Hematocrit 22.8 % (36.0-47.0) Mean Corpuscular Volume 93 fL (79-100) Mean Corpuscular Hemoglobin 29 pg (25-35) Mean Corpuscular Hemoglobin Concent 31 g/dL (31-37) Red Cell Distribution Width 18.1 % (11.5-14.5) Platelet Count 408 x10^3/uL (140-400) Neutrophils (%) (Auto) 79 % (31-73) Lymphocytes (%) (Auto) 14 % (24-48) Monocytes (%) (Auto) 5 % (0-9) Eosinophils (%) (Auto) 2 % (0-3) Basophils (%) (Auto) 0 % (0-3) Neutrophils # (Auto) 7.7 x10^3/uL (1.8-7.7) Lymphocytes # (Auto) 1.4 x10^3/uL (1.0-4.8) Monocytes # (Auto) 0.5 x10^3/uL (0.0-1.1) Eosinophils # (Auto) 0.2 x10^3/uL (0.0-0.7) Basophils # (Auto) 0.0 x10^3/uL (0.0-0.2) Sodium Level 153 mmol/L (136-145) Potassium Level 4.3 mmol/L (3.5-5.1) Chloride Level 114 mmol/L (98-107) Carbon Dioxide Level 38 mmol/L (21-32) Anion Gap 1 (6-14) Blood Urea Nitrogen 47 mg/dL (7-20) Creatinine 1.0 mg/dL (0.6-1.0) Estimated GFR (Cockcroft-Gault) 58.9 Glucose Level 125 mg/dL (70-99) Calcium Level 8.7 mg/dL (8.5-10.1) O2 Saturation 97 % (92-99) 93 % (92-99) Arterial Blood pH 7.27 (7.35-7.45) 7.47 (7.35-7.45) Arterial Blood pCO2 at Patient Temp 75 mmHg (35-46) 49 mmHg (35-46) Arterial Blood pO2 at Patient Temp 123 mmHg (75-108) 73 mmHg (75-108) Arterial Blood HCO3 34 mmol/L (21-28) 35 mmol/L (21-28) Arterial Blood Base Excess 6 mmol/L (-3-3) 10 mmol/L (-3-3) Oxyhemoglobin 96.8 % 92.7 % Methemoglobin 0.5 % (0.0-1.9) 0.4 % (0.0-1.9) Carbon Monoxide, Quantitative 0.1 % (0.0-1.9) 0.3 % (0.0-1.9) FiO2 40 30 Glucose (Fingerstick) 126 mg/dL (70-99) Test 08/21/19 17:57 08/22/19 06:10 08/22/19 06:15 Glucose (Fingerstick) 148 mg/dL (70-99) 153 mg/dL (70-99) Sodium Level 154 mmol/L (136-145) Potassium Level 4.0 mmol/L (3.5-5.1) Chloride Level 114 mmol/L (98-107) Carbon Dioxide Level 33 mmol/L (21-32) Anion Gap 7 (6-14) Blood Urea Nitrogen 45 mg/dL (7-20) Creatinine 0.9 mg/dL (0.6-1.0) Estimated GFR (Cockcroft-Gault) 66.5 BUN/Creatinine Ratio 50 (6-20) Glucose Level 164 mg/dL (70-99) Calcium Level 8.8 mg/dL (8.5-10.1) Phosphorus Level 3.4 mg/dL (2.6-4.7) Magnesium Level 2.2 mg/dL (1.8-2.4) Total Bilirubin 0.5 mg/dL (0.2-1.0) Aspartate Amino Transf (AST/SGOT) 39 U/L (15-37) Alanine Aminotransferase (ALT/SGPT) 36 U/L (14-59) Alkaline Phosphatase 127 U/L (46-116) Total Protein 5.6 g/dL (6.4-8.2) Albumin 1.8 g/dL (3.4-5.0) Albumin/Globulin Ratio 0.5 (1.0-1.7) Triglycerides Level 174 mg/dL (0-150) Laboratory Tests Test 08/21/19 12:47 08/21/19 16:09 08/21/19 17:57 08/22/19 06:10 Glucose (Fingerstick) 126 mg/dL (70-99) 148 mg/dL (70-99) O2 Saturation 93 % (92-99) Arterial Blood pH 7.47 (7.35-7.45) Arterial Blood pCO2 at Patient Temp 49 mmHg (35-46) Arterial Blood pO2 at Patient Temp 73 mmHg (75-108) Arterial Blood HCO3 35 mmol/L (21-28) Arterial Blood Base Excess 10 mmol/L (-3-3) Oxyhemoglobin 92.7 % Methemoglobin 0.4 % (0.0-1.9) Carbon Monoxide, Quantitative 0.3 % (0.0-1.9) FiO2 30 Sodium Level 154 mmol/L (136-145) Potassium Level 4.0 mmol/L (3.5-5.1) Chloride Level 114 mmol/L (98-107) Carbon Dioxide Level 33 mmol/L (21-32) Anion Gap 7 (6-14) Blood Urea Nitrogen 45 mg/dL (7-20) Creatinine 0.9 mg/dL (0.6-1.0) Estimated GFR (Cockcroft-Gault) 66.5 BUN/Creatinine Ratio 50 (6-20) Glucose Level 164 mg/dL (70-99) Calcium Level 8.8 mg/dL (8.5-10.1) Phosphorus Level 3.4 mg/dL (2.6-4.7) Magnesium Level 2.2 mg/dL (1.8-2.4) Total Bilirubin 0.5 mg/dL (0.2-1.0) Aspartate Amino Transf (AST/SGOT) 39 U/L (15-37) Alanine Aminotransferase (ALT/SGPT) 36 U/L (14-59) Alkaline Phosphatase 127 U/L (46-116) Total Protein 5.6 g/dL (6.4-8.2) Albumin 1.8 g/dL (3.4-5.0) Albumin/Globulin Ratio 0.5 (1.0-1.7) Triglycerides Level 174 mg/dL (0-150) Test 08/22/19 06:15 Glucose (Fingerstick) 153 mg/dL (70-99) Medications Active Scripts Medications Dose Route/Sig Max Daily Dose Days Date Category Bisoprolol Fumarate 5 Mg Tablet 10 Mg PO DAILY 07/04/19 Reported Impression . IMPRESSION: 1. Acute hypoxemic respiratory failure secondary to ARDS status post trach, 2. Gallstone pancreatitis 3. Severe metabolic acidosis.stable 4. Acute kidney injury-stable, ON HD-- continue to improve 5. Acute gallstone pancreatitis. 6. Hypoalbuminemia. 7. Moderate persistent effusions 8. Fever- Per ID, per surgery 9. Chronic anemia 10. Covid 19 testing negative 11. Moderate to large ascites-S/P paracentisis 12.S/P paracentisis with 4 liters removed on 08/03/19 Surgery note Operative Note: After obtaining informed consent, patient was taken to OR, induced under GETA and prepped in the usual fashion. 5 mm port placed umbilical and right mid abdomen, all under laparoscopic guidance. Large amount of ascites encountered and aspirated off. Fluid was clear with some whitish debris. Viscera was completely locked in with obliteration of all planes, preventing any significant exploration. Copious irrigation. Given patient's overall clinical improvement, favor against open procedure and attempt at cholecystectomy and/or necrosectomy, given high risk of complications. Cholecystectomy will need to be performed, but favor waiting 3 months. 19 KAYLIN drain placed and secured with 3 0 nylon. Skin repaired with 4 0 monocryl. Dressing placed. Patient tolerated procedure well and sent to PACU in stable condition. All counts correct. Wound class is 4. Plan . We will continue our efforts at weaning, Developed worsening hypercapnia 5/4 due to dilaudid [employer]. d/w RN / RT..dc dilaudid [employer] dose. re-start TS with PM .again today. ABG compensated TS trials, 24 hrs as tolerated/ PM valve after dc dilaudid precedex for anxiety, prn Follow surgery input Follow ID rec, abx per id Follow nephrology recs Nutritional support per surgery: continue TPN for nutrition DVT/GI PPX : heparin Sq/ protonix d/w RN/RT CODE:FULL VINAYAK LANDRUM MD August 22, 2019 09:15
--- NOTE | 2019-08-22 09:31 | PDOC ---
SUBJECTIVE ROS Abdomen distended, Vomiting + , fever + OBJECTIVE Vital Signs Vital Signs Date Time Temp Pulse Resp B/P (MAP) Pulse Ox O2 Delivery O2 Flow Rate FiO2 08/22/19 08:00 97 Ventilator 08/22/19 06:00 106 41 120/63 (82) 08/22/19 04:00 100.3 100.3 I & 0 Intake and Output 08/22/19 07:00 Intake Total 2805.8 ml Output Total 2355 ml Balance 450.8 ml IV Total 2805.8 ml Output Urine Total 2340 ml Drainage Total 15 ml PHYSICAL EXAM Physical Exam GENERAL: NAD HEENT: oral cavity dry NECK: Trach/vent LUNGS: Non labored HEART: S1, S2, regular ABDOMEN: Distended, hypoactive BS, drain placement (08/14 ) : Lind (08/01) EXTREMITIES: Generalized edema, DERMATOLOGIC: Warm and dry. No generalized rash. 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 Moderate pleural effusions, may be slightly improved. Infiltrate/atelectasis in both lung bases. Ascites - post paracentesis in the past US this am, abdomen appears distended Acute hypoxic resp failure ,bilateral pleural effusion Trach in place , On Vent HTN COVID-19 neg, 07/13 COMMENT/RELEVANT DATA Meds Current Medications Medications (Trade) Dose Ordered Sig/Yvon Start Time Stop Time Status Last Admin Dose Admin Acetaminophen (Tylenol Supp) 650 mg PRN Q6HRS PRN 07/12/19 10:30 08/21/19 23:26 650 MG Acetaminophen (Tylenol) 650 mg PRN Q6HRS PRN 07/09/19 03:36 08/04/19 19:56 650 MG Albumin Human 200 ml @ 200 mls/hr 1X PRN PRN 08/09/19 08:00 08/09/19 13:59 DC 08/09/19 08:40 200 MLS/HR Albuterol Sulfate (Ventolin Neb Soln) 2.5 mg 1X ONCE 07/05/19 22:30 07/05/19 22:31 DC 07/06/19 00:56 2.5 MG Alteplase, Recombinant (Cathflo For Central Catheter Clearance) 1 mg 1X ONCE 08/12/19 10:45 08/12/19 10:46 DC 08/12/19 11:44 1 MG Amino Acids/ Glycerin/ Electrolytes 1,000 ml @ 75 mls/hr [id number] 08/08/19 21:15 UNV Artificial Tears (Artificial Tears) 1 drop PRN Q15MIN PRN 08/17/19 05:30 08/19/19 12:34 1 DROP Atenolol (Tenormin) 100 mg DAILY 07/05/19 09:00 07/04/19 20:08 DC Atropine Sulfate (ATROPINE 0.5mg SYRINGE) 0.5 mg PRN Q5MIN PRN 07/21/19 08:15 Benzocaine (Hurricaine One) 1 spray 1X ONCE 07/08/19 14:30 07/08/19 14:31 DC 07/08/19 16:38 1 SPRAY Bisacodyl (Dulcolax Supp) 10 mg STK-MED ONCE 08/15/19 10:59 08/15/19 10:59 DC Bumetanide (Bumex) 2 mg [id number] 08/16/19 14:00 08/20/19 14:10 DC 08/19/19 13:50 2 MG Bupivacaine HCl/ Epinephrine Bitart (Sensorcain-Epi 0.5%-1:[id number] Mpf) 30 ml STK-MED ONCE 08/15/19 10:58 08/15/19 10:58 DC 08/15/19 12:01 7 ML Calcium Carbonate/ Glycine (Tums) 500 mg PRN [id number] PRN 07/06/19 17:45 Calcium Chloride 1000 mg/Sodium Chloride 110 ml @ 220 mls/hr 1X ONCE 07/05/19 22:30 07/05/19 22:59 DC 07/05/19 22:11 220 MLS/HR Calcium Chloride 3000 mg/Sodium Chloride 1,030 ml @ 50 mls/hr [id number] 07/07/19 08:00 07/09/19 15:23 DC 07/09/19 02:17 50 MLS/HR Calcium Gluconate (Calcium Gluconate) 2,000 mg 1X ONCE 07/07/19 02:15 07/07/19 02:16 DC 07/07/19 02:19 2,000 MG Calcium Gluconate 1000 mg/Sodium Chloride 110 ml @ 220 mls/hr 1X ONCE 07/06/19 03:30 07/06/19 03:59 DC 07/06/19 03:21 220 MLS/HR Calcium Gluconate 2000 mg/Sodium Chloride 120 ml @ 220 mls/hr 1X ONCE 07/06/19 07:30 07/06/19 08:02 DC 07/06/19 09:05 220 MLS/HR Cefepime HCl (Maxipime) 2 gm Q12HR 07/13/19 09:00 07/27/19 09:58 DC 07/26/19 20:56 2 GM Cellulose (Surgicel Fibrillar 1x2) 1 each STK-MED ONCE 07/25/19 11:00 07/25/19 11:01 DC Cellulose (Surgicel Hemostat 2x14) 1 each STK-MED ONCE 08/15/19 10:58 08/15/19 10:59 DC Cellulose (Surgicel Hemostat 4x8) 1 each STK-MED ONCE 08/15/19 10:58 08/15/19 10:59 DC Cyclobenzaprine HCl (Flexeril) 10 mg PRN Q6HRS PRN 08/18/19 10:45 Daptomycin 430 mg/ Sodium Chloride 50 ml @ 100 mls/hr Q24H 08/13/19 13:00 08/18/19 20:58 DC 08/18/19 13:00 100 MLS/HR Daptomycin 500 mg/ Sodium Chloride 50 ml @ 100 mls/hr Q48H 07/13/19 08:30 07/29/19 10:07 DC 07/29/19 09:57 100 MLS/HR Dexamethasone Sodium Phosphate (Decadron) 4 mg STK-MED ONCE 08/15/19 10:56 08/15/19 10:57 DC Dexmedetomidine HCl 400 mcg/ Sodium Chloride 100 ml @ 0 mls/hr CONT PRN 07/21/19 08:15 08/22/19 05:52 8.3 MLS/HR Dextrose (Dextrose 50%-Water Syringe) 12.5 gm PRN Q15MIN PRN 07/04/19 09:30 Digoxin (Lanoxin) 125 mcg 1X ONCE 07/07/19 18:00 07/07/19 18:01 DC 07/07/19 17:10 125 MCG Diphenhydramine HCl (Benadryl) 25 mg 1X PRN PRN 08/12/19 15:45 08/13/19 15:44 DC Enoxaparin Sodium (Lovenox 100mg Syringe) 100 mg Q12HR 08/09/19 21:00 UNV Etomidate (Amidate) 8 mg 1X ONCE 07/11/19 08:30 07/11/19 08:31 DC 07/11/19 08:33 8 MG Fentanyl Citrate (Fentanyl 2ml Vial) 100 mcg STK-MED ONCE 08/15/19 10:56 08/15/19 10:57 DC Furosemide (Lasix) 40 mg 1X ONCE 08/01/19 14:30 08/01/19 14:31 DC 08/01/19 14:39 40 MG Heparin Sodium (Porcine) (Hep Lock Adult) 500 unit STK-MED ONCE 07/26/19 09:29 07/26/19 09:30 DC Heparin Sodium (Porcine) (Heparin Sodium) 5,000 unit Q12HR 08/15/19 21:00 08/21/19 21:12 5,000 UNIT Heparin Sodium (Porcine) 1000 unit/Sodium Chloride 1,001 ml @ 1,001 mls/hr 1X ONCE 08/15/19 12:00 08/15/19 12:59 DC Hydromorphone HCl (Dilaudid Standard J[employer]IOR [employer]OUNTANT) 12 mg STK-MED ONCE 08/18/19 13:47 08/19/19 11:03 DC Hydromorphone HCl (Dilaudid) 0.4 mg PRN Q4HRS PRN 08/22/19 09:00 Info (CONTRAST GIVEN -- Rx MONITORING) 1 each PRN DAILY PRN 07/18/19 11:45 07/20/19 11:44 DC Info (Icu Electrolyte Protocol) 1 ea CONT PRN PRN 07/17/19 13:15 Info (PHARMACY MONITORING -- do not chart) 1 each PRN DAILY PRN 08/12/19 15:45 Info (Tpn Per Pharmacy) 1 each PRN DAILY PRN 07/06/19 12:30 UNV Insulin Human Lispro (HumaLOG) 0-9 UNITS Q6HRS 07/04/19 09:30 08/18/19 17:29 4 UNITS Insulin Human Regular (HumuLIN R VIAL) 5 unit 1X ONCE 07/05/19 22:30 07/05/19 22:31 DC 07/05/19 22:14 5 UNIT Iohexol (Omnipaque 240 Mg/ml) 30 ml 1X ONCE 07/18/19 11:30 07/18/19 11:33 DC 07/18/19 11:30 30 ML Iohexol (Omnipaque 300 Mg/ml) 50 ml STK-MED ONCE 08/15/19 10:58 08/15/19 10:59 DC Iohexol (Omnipaque 350 Mg/ml) 90 ml 1X ONCE 07/04/19 03:30 07/04/19 03:31 DC 07/04/19 03:25 90 ML Ketorolac Tromethamine (Toradol 30mg Vial) 30 mg 1X ONCE 07/04/19 03:00 07/04/19 03:01 DC 07/04/19 02:54 30 MG Lidocaine HCl (Buffered Lidocaine 1%) 6 ml 1X ONCE 08/03/19 13:30 08/03/19 13:31 DC 08/03/19 13:45 9 ML Lidocaine HCl (Glydo (Lidocaine) Jelly) 1 ramu 1X ONCE 07/08/19 14:30 07/08/19 14:31 DC 07/08/19 16:38 1 RAMU Lidocaine HCl (Xylocaine-Mpf 1% 2ml Vial) 2 ml PRN 1X PRN 08/15/19 07:00 08/16/19 06:59 DC Linezolid/Dextrose 300 ml @ 300 mls/hr Q12HR 07/29/19 11:00 08/09/19 08:10 DC 08/08/19 20:40 300 MLS/HR Lorazepam (Ativan Inj) 1 mg PRN Q4HRS PRN 07/07/19 09:00 08/05/19 09:19 DC 08/05/19 03:51 1 MG Magnesium Sulfate 50 ml @ 25 mls/hr 1X ONCE 08/20/19 10:30 08/20/19 12:29 DC 08/20/19 10:34 25 MLS/HR Meropenem 1 gm/ Sodium Chloride 100 ml @ 200 mls/hr Q8HRS 08/16/19 14:00 08/22/19 06:06 200 MLS/HR Meropenem 500 mg/ Sodium Chloride 50 ml @ 100 mls/hr Q12H 07/27/19 10:00 08/16/19 12:37 DC 08/16/19 10:45 100 MLS/HR Metoprolol Tartrate (Lopressor Vial) 5 mg Q6HRS 07/05/19 10:15 07/16/19 08:48 DC 07/14/19 00:12 5 MG Metronidazole 100 ml @ 100 mls/hr Q8HRS 08/02/19 10:00 08/09/19 08:10 DC 08/09/19 06:04 100 MLS/HR Micafungin Sodium 100 mg/Dextrose 100 ml @ 100 mls/hr Q24H 07/11/19 09:00 08/18/19 20:58 DC 08/18/19 08:18 100 MLS/HR Midazolam HCl (Versed) 5 mg 1X ONCE 07/11/19 08:30 07/11/19 08:31 DC Midazolam HCl 100 mg/Sodium Chloride 100 ml @ 7 mls/hr CONT PRN 07/16/19 16:00 07/27/19 15:35 7 MLS/HR Midazolam HCl 50 mg/Sodium Chloride 50 ml @ 0 mls/hr CONT PRN 07/11/19 08:15 07/16/19 15:59 DC 07/14/19 22:39 7 MLS/HR Morphine Sulfate (Morphine Sulfate) 2 mg PRN Q2HR PRN 07/04/19 05:00 07/05/19 14:15 DC 07/05/19 12:26 2 MG Multi-Ingred Cream/Lotion/Oil/ Oint (Artificial Tears Eye Ointment) 1 ramu PRN Q1HR PRN 07/13/19 17:30 08/01/19 08:19 1 RAMU Naloxone HCl (Narcan) 0.4 mg PRN Q2MIN PRN 08/15/19 14:30 UNV Norepinephrine Bitartrate 8 mg/ Dextrose 258 ml @ 17.299 mls/ hr CONT PRN 07/05/19 15:30 08/05/19 09:19 DC 08/02/19 12:48 20.9 MLS/HR Ondansetron HCl (Zofran) 4 mg STK-MED ONCE 08/15/19 10:56 08/15/19 10:57 DC Pantoprazole Sodium (PROTONIX VIAL for IV PUSH) 40 mg DAILYAC 07/04/19 11:30 08/21/19 09:19 40 MG Phenylephrine HCl (PHENYLEPHRINE in 0.9% NACL PF) 1 mg STK-MED ONCE 08/15/19 12:34 08/15/19 12:34 DC Piperacillin Sod/ Tazobactam Sod 4.5 gm/Sodium Chloride 100 ml @ 200 mls/hr 1X ONCE 07/04/19 06:00 07/04/19 06:29 DC 07/04/19 05:44 200 MLS/HR Potassium Chloride 15 meq/ Bicarbonate Dialysis Soln w/ out KCl 5,007.5 ml @ 1,000 mls/ hr Q5H1M 07/17/19 20:00 07/21/19 13:08 DC 07/20/19 18:14 1,000 MLS/HR Potassium Chloride 20 meq/ Bicarbonate Dialysis Soln w/ out KCl 5,010 ml @ 1,000 mls/hr Q5H1M 07/13/19 16:00 07/17/19 19:59 DC 07/17/19 14:54 1,000 MLS/HR Potassium Chloride 75 meq/ Magnesium Sulfate 20 meq/Calcium Gluconate 10 meq/ Multivitamins 10 ml/Chromium/ Copper/Manganese/ Seleni/Zn 0.5 ml/ Insulin Human Regular 25 unit/ Total Parenteral Nutrition/Amino Acids/Dextrose/ Fat Emulsion Intravenous 1,920 ml @ 80 mls/hr TPN CONT 08/21/19 22:00 08/22/19 21:59 08/21/19 22:04 80 MLS/HR Potassium Chloride 75 meq/ Magnesium Sulfate 20 meq/Calcium Gluconate 10 meq/ Multivitamins 10 ml/Chromium/ Copper/Manganese/ Seleni/Zn 0.5 ml/ Insulin Human Regular 30 unit/ Total Parenteral Nutrition/Amino Acids/Dextrose/ Fat Emulsion Intravenous 1,920 ml @ 80 mls/hr TPN CONT 08/20/19 22:00 08/21/19 22:00 DC 08/20/19 21:51 80 MLS/HR Potassium Chloride/Water 100 ml @ 100 mls/hr Q1H 08/20/19 07:00 08/20/19 10:59 DC 08/20/19 13:05 100 MLS/HR Potassium Phosphate 20 mmol/ Sodium Chloride 106.6667 ml @ 51.667 m... 1X ONCE 07/13/19 13:00 07/13/19 15:03 DC 07/13/19 12:51 51.667 MLS/HR Potassium Acetate 30 meq/Magnesium Sulfate 20 meq/ Calcium Gluconate 10 meq/ Multivitamins 10 ml/Chromium/ Copper/Manganese/ Seleni/Zn 0.5 ml/ Insulin Human Regular 30 unit/ Potassium Chloride 30 meq/ Total Parenteral Nutrition/Amino Acids/Dextrose/ Fat Emulsion Intravenous 1,920 ml @ 80 mls/hr TPN CONT 08/19/19 22:00 08/20/19 21:59 DC 08/19/19 22:34 80 MLS/HR Potassium Acetate 55 meq/Magnesium Sulfate 20 meq/ Calcium Gluconate 10 meq/ Multivitamins 10 ml/Chromium/ Copper/Manganese/ Seleni/Zn 0.5 ml/ Insulin Human Regular 30 unit/ Total Parenteral Nutrition/Amino Acids/Dextrose/ Fat Emulsion Intravenous 1,920 ml @ 80 mls/hr TPN CONT 08/18/19 22:00 08/19/19 21:59 DC 08/19/19 01:00 80 MLS/HR Potassium Acetate 55 meq/Magnesium Sulfate 20 meq/ Calcium Gluconate 10 meq/ Multivitamins 10 ml/Chromium/ Copper/Manganese/ Seleni/Zn 0.5 ml/ Insulin Human Regular 35 unit/ Total Parenteral Nutrition/Amino Acids/Dextrose/ Fat Emulsion Intravenous 1,920 ml @ 80 mls/hr TPN CONT 08/16/19 22:00 08/17/19 21:59 DC 08/16/19 22:02 80 MLS/HR Potassium Acetate 65 meq/Magnesium Sulfate 20 meq/ Calcium Gluconate 10 meq/ Multivitamins 10 ml/Chromium/ Copper/Manganese/ Seleni/Zn 0.5 ml/ Insulin Human Regular 30 unit/ Total Parenteral Nutrition/Amino Acids/Dextrose/ Fat Emulsion Intravenous 1,920 ml @ 80 mls/hr TPN CONT 08/17/19 22:00 08/18/19 21:59 DC 08/17/19 22:22 80 MLS/HR Prochlorperazine Edisylate (Compazine) 5 mg PACU PRN PRN 08/15/19 07:00 08/16/19 06:59 DC Propofol 20 ml @ As Directed STK-MED ONCE 08/15/19 12:26 08/15/19 12:27 DC Ringer's Solution 1,000 ml @ 30 mls/hr Q24H 08/15/19 07:00 08/15/19 18:59 DC Rocuronium [place] (Zemuron) 50 mg STK-MED ONCE 08/15/19 10:56 08/15/19 10:57 DC Sevoflurane (Ultane) 60 ml STK-MED ONCE 08/15/19 12:26 08/15/19 12:27 DC Sodium Bicarbonate 50 meq/Sodium Chloride 1,050 ml @ 75 mls/hr Q14H 07/06/19 07:30 07/11/19 10:28 DC 07/10/19 21:10 75 MLS/HR Sodium Acetate 50 meq/Potassium Acetate 55 meq/ Magnesium Sulfate 20 meq/Calcium Gluconate 10 meq/ Multivitamins 10 ml/Chromium/ Copper/Manganese/ Seleni/Zn 0.5 ml/ Insulin Human Regular 35 unit/ Total Parenteral Nutrition/Amino Acids/Dextrose/ Fat Emulsion Intravenous 1,800 ml @ 75 mls/hr TPN CONT 08/13/19 22:00 08/14/19 21:59 DC 08/13/19 22:03 75 MLS/HR Sodium Chloride 1,000 ml @ 25 mls/hr Q24H 08/15/19 14:30 UNV Sodium Chloride (Normal Saline Flush) 3 ml QSHIFT PRN 08/15/19 13:45 Sodium Chloride 90 meq/Calcium Gluconate 10 meq/ Multivitamins 10 ml/Chromium/ Copper/Manganese/ Seleni/Zn 0.5 ml/ Total Parenteral Nutrition/Amino Acids/Dextrose/ Fat Emulsion Intravenous 1,512 ml @ 63 mls/hr TPN CONT 07/06/19 22:00 07/07/19 21:59 DC 07/06/19 22:06 63 MLS/HR Sodium Chloride 90 meq/Calcium Gluconate 10 meq/ Multivitamins 10 ml/Chromium/ Copper/Manganese/ Seleni/Zn 1 ml/ Total Parenteral Nutrition/Amino Acids/Dextrose/ Fat Emulsion Intravenous 55.005 ml @ 2.292 mls/hr TPN CONT 07/06/19 22:00 07/06/19 12:33 DC Sodium Chloride 90 meq/Magnesium Sulfate 10 meq/ Calcium Gluconate 20 meq/ Multivitamins 10 ml/Chromium/ Copper/Manganese/ Seleni/Zn 0.5 ml/ Total Parenteral Nutrition/Amino Acids/Dextrose/ Fat Emulsion Intravenous 1,512 ml @ 63 mls/hr TPN CONT 07/07/19 22:00 07/08/19 21:59 DC 07/07/19 22:25 63 MLS/HR Sodium Chloride 90 meq/Magnesium Sulfate 12 meq/ Calcium Gluconate 15 meq/ Multivitamins 10 ml/Chromium/ Copper/Manganese/ Seleni/Zn 0.5 ml/ Insulin Human Regular 25 unit/ Total Parenteral Nutrition/Amino Acids/Dextrose/ Fat Emulsion Intravenous 1,400 ml @ 58.333 mls/ hr TPN CONT 07/27/19 22:00 07/28/19 21:59 DC 07/27/19 21:41 58.333 MLS/HR Sodium Chloride 90 meq/Potassium Chloride 15 meq/ Magnesium Sulfate 12 meq/Calcium Gluconate 15 meq/ Multivitamins 10 ml/Chromium/ Copper/Manganese/ Seleni/Zn 0.5 ml/ Insulin Human Regular 25 unit/ Total Parenteral Nutrition/Amino Acids/Dextrose/ Fat Emulsion Intravenous 1,400 ml @ 58.333 mls/ hr TPN CONT 07/26/19 22:00 07/27/19 21:59 DC 07/26/19 22:13 58.333 MLS/HR Sodium Chloride 90 meq/Potassium Chloride 15 meq/ Potassium Phosphate 10 mmol/ Magnesium Sulfate 8 meq/Calcium Gluconate 15 meq/ Multivitamins 10 ml/Chromium/ Copper/Manganese/ Seleni/Zn 0.5 ml/ Insulin Human Regular 25 unit/ Total Parenteral Nutrition/Amino Acids/Dextrose/ Fat Emulsion Intravenous 1,400 ml @ 58.333 mls/ hr TPN CONT 07/24/19 22:00 07/25/19 21:59 DC 07/24/19 21:20 58.333 MLS/HR Sodium Chloride 90 meq/Potassium Chloride 15 meq/ Potassium Phosphate 10 mmol/ Magnesium Sulfate 10 meq/Calcium Gluconate 20 meq/ Multivitamins 10 ml/Chromium/ Copper/Manganese/ Seleni/Zn 0.5 ml/ Total Parenteral Nutrition/Amino Acids/Dextrose/ Fat Emulsion Intravenous 1,400 ml @ 58.333 mls/ hr TPN CONT 07/11/19 22:00 07/12/19 21:59 DC 07/11/19 21:42 58.333 MLS/HR Sodium Chloride 90 meq/Potassium Chloride 15 meq/ Potassium Phosphate 10 mmol/ Magnesium Sulfate 12 meq/Calcium Gluconate 15 meq/ Multivitamins 10 ml/Chromium/ Copper/Manganese/ Seleni/Zn 0.5 ml/ Insulin Human Regular 25 unit/ Total Parenteral Nutrition/Amino Acids/Dextrose/ Fat Emulsion Intravenous 1,400 ml @ 58.333 mls/ hr TPN CONT 07/25/19 22:00 07/26/19 21:59 DC 07/25/19 22:24 58.333 MLS/HR Sodium Chloride 90 meq/Potassium Chloride 15 meq/ Potassium Phosphate 15 mmol/ Magnesium Sulfate 10 meq/Calcium Gluconate 15 meq/ Multivitamins 10 ml/Chromium/ Copper/Manganese/ Seleni/Zn 0.5 ml/ Total Parenteral Nutrition/Amino Acids/Dextrose/ Fat Emulsion Intravenous 1,400 ml @ 58.333 mls/ hr TPN CONT 07/12/19 22:00 07/13/19 21:59 DC 07/12/19 22:17 58.333 MLS/HR Sodium Chloride 90 meq/Potassium Chloride 15 meq/ Potassium Phosphate 15 mmol/ Magnesium Sulfate 10 meq/Calcium Gluconate 20 meq/ Multivitamins 10 ml/Chromium/ Copper/Manganese/ Seleni/Zn 0.5 ml/ Total Parenteral Nutrition/Amino Acids/Dextrose/ Fat Emulsion Intravenous 1,200 ml @ 50 mls/hr TPN CONT 07/10/19 22:00 07/10/19 14:17 DC Sodium Chloride 90 meq/Potassium Chloride 15 meq/ Potassium Phosphate 18 mmol/ Magnesium Sulfate 8 meq/Calcium Gluconate 15 meq/ Multivitamins 10 ml/Chromium/ Copper/Manganese/ Seleni/Zn 0.5 ml/ Insulin Human Regular 10 unit/ Total Parenteral Nutrition/Amino Acids/Dextrose/ Fat Emulsion Intravenous 1,400 ml @ 58.333 mls/ hr TPN CONT 07/15/19 22:00 07/16/19 21:59 DC 07/15/19 21:43 58.333 MLS/HR Sodium Chloride 90 meq/Potassium Chloride 15 meq/ Potassium Phosphate 18 mmol/ Magnesium Sulfate 8 meq/Calcium Gluconate 15 meq/ Multivitamins 10 ml/Chromium/ Copper/Manganese/ Seleni/Zn 0.5 ml/ Insulin Human Regular 15 unit/ Total Parenteral Nutrition/Amino Acids/Dextrose/ Fat Emulsion Intravenous 1,400 ml @ 58.333 mls/ hr TPN CONT 07/18/19 22:00 07/19/19 21:59 DC 07/18/19 21:47 58.333 MLS/HR Sodium Chloride 90 meq/Potassium Chloride 15 meq/ Potassium Phosphate 18 mmol/ Magnesium Sulfate 8 meq/Calcium Gluconate 15 meq/ Multivitamins 10 ml/Chromium/ Copper/Manganese/ Seleni/Zn 0.5 ml/ Insulin Human Regular 20 unit/ Total Parenteral Nutrition/Amino Acids/Dextrose/ Fat Emulsion Intravenous 1,400 ml @ 58.333 mls/ hr TPN CONT 07/21/19 22:00 07/22/19 21:59 DC 07/21/19 22:45 58.333 MLS/HR Sodium Chloride 90 meq/Potassium Chloride 15 meq/ Potassium Phosphate 18 mmol/ Magnesium Sulfate 8 meq/Calcium Gluconate 15 meq/ Multivitamins 10 ml/Chromium/ Copper/Manganese/ Seleni/Zn 0.5 ml/ Total Parenteral Nutrition/Amino Acids/Dextrose/ Fat Emulsion Intravenous 1,400 ml @ 58.333 mls/ hr TPN CONT 07/14/19 22:00 07/15/19 21:59 DC 07/14/19 22:00 58.333 MLS/HR Sodium Chloride 90 meq/Potassium Phosphate 15 mmol/ Magnesium Sulfate 12 meq/Calcium Gluconate 15 meq/ Multivitamins 10 ml/Chromium/ Copper/Manganese/ Seleni/Zn 0.5 ml/ Insulin Human Regular 30 unit/ Total Parenteral Nutrition/Amino Acids/Dextrose/ Fat Emulsion Intravenous 1,400 ml @ 58.333 mls/ hr TPN CONT 07/29/19 22:00 07/30/19 21:59 DC 07/29/19 21:49 58.333 MLS/HR Sodium Chloride 90 meq/Potassium Phosphate 15 mmol/ Magnesium Sulfate 12 meq/Calcium Gluconate 15 meq/ Multivitamins 10 ml/Chromium/ Copper/Manganese/ Seleni/Zn 0.5 ml/ Insulin Human Regular 40 unit/ Total Parenteral Nutrition/Amino Acids/Dextrose/ Fat Emulsion Intravenous 1,400 ml @ 58.333 mls/ hr TPN CONT 07/30/19 22:00 4/12/20 21:59 DC 07/30/19 21:21 58.333 MLS/HR Sodium Chloride 90 meq/Potassium Phosphate 19 mmol/ Magnesium Sulfate 12 meq/Calcium Gluconate 15 meq/ Multivitamins 10 ml/Chromium/ Copper/Manganese/ Seleni/Zn 0.5 ml/ Insulin Human Regular 40 unit/ Total Parenteral Nutrition/Amino Acids/Dextrose/ Fat Emulsion Intravenous 1,400 ml @ 58.333 mls/ hr TPN CONT 07/31/19 22:00 08/01/19 21:59 DC 07/31/19 21:54 58.333 MLS/HR Sodium Chloride 90 meq/Potassium Phosphate 5 mmol/ Magnesium Sulfate 12 meq/Calcium Gluconate 15 meq/ Multivitamins 10 ml/Chromium/ Copper/Manganese/ Seleni/Zn 0.5 ml/ Insulin Human Regular 30 unit/ Total Parenteral Nutrition/Amino Acids/Dextrose/ Fat Emulsion Intravenous 1,400 ml @ 58.333 mls/ hr TPN CONT 07/28/19 22:00 07/29/19 21:59 DC 07/28/19 22:08 58.333 MLS/HR Sodium Chloride 100 meq/Potassium Chloride 40 meq/ Magnesium Sulfate 15 meq/Calcium Gluconate 15 meq/ Multivitamins 10 ml/Chromium/ Copper/Manganese/ Seleni/Zn 0.5 ml/ Insulin Human Regular 35 unit/ Total Parenteral Nutrition/Amino Acids/Dextrose/ Fat Emulsion Intravenous 1,400 ml @ 58.333 mls/ hr TPN CONT 08/07/19 22:00 08/08/19 21:59 DC 08/07/19 22:46 58.333 MLS/HR Sodium Chloride 100 meq/Potassium Chloride 40 meq/ Magnesium Sulfate 20 meq/Calcium Gluconate 10 meq/ Multivitamins 10 ml/Chromium/ Copper/Manganese/ Seleni/Zn 0.5 ml/ Insulin Human Regular 35 unit/ Total Parenteral Nutrition/Amino Acids/Dextrose/ Fat Emulsion Intravenous 1,400 ml @ 58.333 mls/ hr TPN CONT 08/11/19 22:00 08/12/19 21:59 DC 08/12/19 00:06 58.333 MLS/HR Sodium Chloride 100 meq/Potassium Chloride 40 meq/ Magnesium Sulfate 20 meq/Calcium Gluconate 15 meq/ Multivitamins 10 ml/Chromium/ Copper/Manganese/ Seleni/Zn 0.5 ml/ Insulin Human Regular 35 unit/ Total Parenteral Nutrition/Amino Acids/Dextrose/ Fat Emulsion Intravenous 1,400 ml @ 58.333 mls/ hr TPN CONT 08/10/19 22:00 08/11/19 21:59 DC 08/10/19 22:27 58.333 MLS/HR Sodium Chloride 100 meq/Potassium Phosphate 10 mmol/ Magnesium Sulfate 12 meq/Calcium Gluconate 15 meq/ Multivitamins 10 ml/Chromium/ Copper/Manganese/ Seleni/Zn 0.5 ml/ Insulin Human Regular 35 unit/ Potassium Chloride 20 meq/ Total Parenteral Nutrition/Amino Acids/Dextrose/ Fat Emulsion Intravenous 1,400 ml @ 58.333 mls/ hr TPN CONT 08/04/19 22:00 08/05/19 21:59 DC 08/04/19 22:10 58.333 MLS/HR Sodium Chloride 100 meq/Potassium Phosphate 19 mmol/ Magnesium Sulfate 12 meq/Calcium Gluconate 15 meq/ Multivitamins 10 ml/Chromium/ Copper/Manganese/ Seleni/Zn 0.5 ml/ Insulin Human Regular 40 unit/ Potassium Chloride 20 meq/ Total Parenteral Nutrition/Amino Acids/Dextrose/ Fat Emulsion Intravenous 1,400 ml @ 58.333 mls/ hr TPN CONT 08/03/19 22:00 08/04/19 21:59 DC 08/03/19 21:20 58.333 MLS/HR Sodium Chloride 100 meq/Potassium Phosphate 5 mmol/ Magnesium Sulfate 12 meq/Calcium Gluconate 15 meq/ Multivitamins 10 ml/Chromium/ Copper/Manganese/ Seleni/Zn 0.5 ml/ Insulin Human Regular 35 unit/ Potassium Chloride 20 meq/ Total Parenteral Nutrition/Amino Acids/Dextrose/ Fat Emulsion Intravenous 1,400 ml @ 58.333 mls/ hr TPN CONT 08/05/19 22:00 08/06/19 21:59 DC 08/05/19 22:59 58.333 MLS/HR Succinylcholine Chloride (Anectine) 120 mg 1X ONCE 07/11/19 08:30 07/11/19 08:31 DC 07/11/19 08:34 120 MG Lab Laboratory Tests Test 08/21/19 12:47 08/21/19 16:09 08/21/19 17:57 08/22/19 06:10 Glucose (Fingerstick) 126 mg/dL (70-99) 148 mg/dL (70-99) O2 Saturation 93 % (92-99) Arterial Blood pH 7.47 (7.35-7.45) Arterial Blood pCO2 at Patient Temp 49 mmHg (35-46) Arterial Blood pO2 at Patient Temp 73 mmHg (75-108) Arterial Blood HCO3 35 mmol/L (21-28) Arterial Blood Base Excess 10 mmol/L (-3-3) Oxyhemoglobin 92.7 % Methemoglobin 0.4 % (0.0-1.9) Carbon Monoxide, Quantitative 0.3 % (0.0-1.9) FiO2 30 Sodium Level 154 mmol/L (136-145) Potassium Level 4.0 mmol/L (3.5-5.1) Chloride Level 114 mmol/L (98-107) Carbon Dioxide Level 33 mmol/L (21-32) Anion Gap 7 (6-14) Blood Urea Nitrogen 45 mg/dL (7-20) Creatinine 0.9 mg/dL (0.6-1.0) Estimated GFR (Cockcroft-Gault) 66.5 BUN/Creatinine Ratio 50 (6-20) Glucose Level 164 mg/dL (70-99) Calcium Level 8.8 mg/dL (8.5-10.1) Phosphorus Level 3.4 mg/dL (2.6-4.7) Magnesium Level 2.2 mg/dL (1.8-2.4) Total Bilirubin 0.5 mg/dL (0.2-1.0) Aspartate Amino Transf (AST/SGOT) 39 U/L (15-37) Alanine Aminotransferase (ALT/SGPT) 36 U/L (14-59) Alkaline Phosphatase 127 U/L (46-116) Total Protein 5.6 g/dL (6.4-8.2) Albumin 1.8 g/dL (3.4-5.0) Albumin/Globulin Ratio 0.5 (1.0-1.7) Triglycerides Level 174 mg/dL (0-150) Test 08/22/19 06:15 Glucose (Fingerstick) 153 mg/dL (70-99) Results All relevant outside records, renal labs, imaging studies, telemetry/EKG's were reviewed. VERENA KENT MD August 22, 2019 09:31
--- NOTE | 2019-08-22 09:34 | PDOC ---
PROGRESS NOTES Assessment Problems Medical Problems: (1) Acute pancreatitis Status: Acute (2) Cholelithiasis Status: Acute Respiratory failure. Seizure. Metabolic encephalopathy. Fevers. Metabolic acidosis. Diffuse pulmonary infiltrate. Pleural effusion. Pancreatitis, necrotizing. Gallstone. Leukocytosis. Lymphopenia. Electrolytes imbalances. Hyperglycemia. DM. HTN. HLD. Anemia. Abnormal CXR. Obesity. Ascites and pleural effusion Plan Keppra if she has further seizures. Treat medical diseases. Subjective none Objective Vital Signs Date Time Temp Pulse Resp B/P (MAP) Pulse Ox O2 Delivery O2 Flow Rate FiO2 08/22/19 08:00 97 Ventilator 08/22/19 06:00 106 41 120/63 (82) 08/22/19 04:00 100.3 100.3 Intake and Output 08/22/19 07:00 Intake Total 2805.8 ml Output Total 2355 ml Balance 450.8 ml IV Total 2805.8 ml Output Urine Total 2340 ml Drainage Total 15 ml PHYSICAL EXAM Alert. Tracheostomy in place. Mouths replies. Tracks with her eyes, moves extremities to commands PERRL. EOMI. CN: no focal findings. Muscle tone: normal. Muscle strength: Moves all extremities, 3/5 strength in arms, 2/5 and legs DTR: 1+ Plantar reflex: Silent Gait: not examined in bed. Sensory exam: no abnormal findings. No cerebellar signs elicited. Review of Relevant I have reviewed the following items kolby (where applicable) has been applied. Labs Laboratory Tests Test 08/20/19 13:34 08/20/19 18:06 08/21/19 00:03 08/21/19 05:25 Glucose (Fingerstick) 146 mg/dL (70-99) 135 mg/dL (70-99) 122 mg/dL (70-99) 113 mg/dL (70-99) Test 08/21/19 05:30 08/21/19 07:55 08/21/19 12:47 08/21/19 16:09 White Blood Count 9.7 x10^3/uL (4.0-11.0) Red Blood Count 2.44 x10^6/uL (3.50-5.40) Hemoglobin 7.1 g/dL (12.0-15.5) Hematocrit 22.8 % (36.0-47.0) Mean Corpuscular Volume 93 fL (79-100) Mean Corpuscular Hemoglobin 29 pg (25-35) Mean Corpuscular Hemoglobin Concent 31 g/dL (31-37) Red Cell Distribution Width 18.1 % (11.5-14.5) Platelet Count 408 x10^3/uL (140-400) Neutrophils (%) (Auto) 79 % (31-73) Lymphocytes (%) (Auto) 14 % (24-48) Monocytes (%) (Auto) 5 % (0-9) Eosinophils (%) (Auto) 2 % (0-3) Basophils (%) (Auto) 0 % (0-3) Neutrophils # (Auto) 7.7 x10^3/uL (1.8-7.7) Lymphocytes # (Auto) 1.4 x10^3/uL (1.0-4.8) Monocytes # (Auto) 0.5 x10^3/uL (0.0-1.1) Eosinophils # (Auto) 0.2 x10^3/uL (0.0-0.7) Basophils # (Auto) 0.0 x10^3/uL (0.0-0.2) Sodium Level 153 mmol/L (136-145) Potassium Level 4.3 mmol/L (3.5-5.1) Chloride Level 114 mmol/L (98-107) Carbon Dioxide Level 38 mmol/L (21-32) Anion Gap 1 (6-14) Blood Urea Nitrogen 47 mg/dL (7-20) Creatinine 1.0 mg/dL (0.6-1.0) Estimated GFR (Cockcroft-Gault) 58.9 Glucose Level 125 mg/dL (70-99) Calcium Level 8.7 mg/dL (8.5-10.1) O2 Saturation 97 % (92-99) 93 % (92-99) Arterial Blood pH 7.27 (7.35-7.45) 7.47 (7.35-7.45) Arterial Blood pCO2 at Patient Temp 75 mmHg (35-46) 49 mmHg (35-46) Arterial Blood pO2 at Patient Temp 123 mmHg (75-108) 73 mmHg (75-108) Arterial Blood HCO3 34 mmol/L (21-28) 35 mmol/L (21-28) Arterial Blood Base Excess 6 mmol/L (-3-3) 10 mmol/L (-3-3) Oxyhemoglobin 96.8 % 92.7 % Methemoglobin 0.5 % (0.0-1.9) 0.4 % (0.0-1.9) Carbon Monoxide, Quantitative 0.1 % (0.0-1.9) 0.3 % (0.0-1.9) FiO2 40 30 Glucose (Fingerstick) 126 mg/dL (70-99) Test 08/21/19 17:57 08/22/19 06:10 08/22/19 06:15 Glucose (Fingerstick) 148 mg/dL (70-99) 153 mg/dL (70-99) Sodium Level 154 mmol/L (136-145) Potassium Level 4.0 mmol/L (3.5-5.1) Chloride Level 114 mmol/L (98-107) Carbon Dioxide Level 33 mmol/L (21-32) Anion Gap 7 (6-14) Blood Urea Nitrogen 45 mg/dL (7-20) Creatinine 0.9 mg/dL (0.6-1.0) Estimated GFR (Cockcroft-Gault) 66.5 BUN/Creatinine Ratio 50 (6-20) Glucose Level 164 mg/dL (70-99) Calcium Level 8.8 mg/dL (8.5-10.1) Phosphorus Level 3.4 mg/dL (2.6-4.7) Magnesium Level 2.2 mg/dL (1.8-2.4) Total Bilirubin 0.5 mg/dL (0.2-1.0) Aspartate Amino Transf (AST/SGOT) 39 U/L (15-37) Alanine Aminotransferase (ALT/SGPT) 36 U/L (14-59) Alkaline Phosphatase 127 U/L (46-116) Total Protein 5.6 g/dL (6.4-8.2) Albumin 1.8 g/dL (3.4-5.0) Albumin/Globulin Ratio 0.5 (1.0-1.7) Triglycerides Level 174 mg/dL (0-150) Laboratory Tests Test 08/21/19 12:47 08/21/19 16:09 08/21/19 17:57 08/22/19 06:10 Glucose (Fingerstick) 126 mg/dL (70-99) 148 mg/dL (70-99) O2 Saturation 93 % (92-99) Arterial Blood pH 7.47 (7.35-7.45) Arterial Blood pCO2 at Patient Temp 49 mmHg (35-46) Arterial Blood pO2 at Patient Temp 73 mmHg (75-108) Arterial Blood HCO3 35 mmol/L (21-28) Arterial Blood Base Excess 10 mmol/L (-3-3) Oxyhemoglobin 92.7 % Methemoglobin 0.4 % (0.0-1.9) Carbon Monoxide, Quantitative 0.3 % (0.0-1.9) FiO2 30 Sodium Level 154 mmol/L (136-145) Potassium Level 4.0 mmol/L (3.5-5.1) Chloride Level 114 mmol/L (98-107) Carbon Dioxide Level 33 mmol/L (21-32) Anion Gap 7 (6-14) Blood Urea Nitrogen 45 mg/dL (7-20) Creatinine 0.9 mg/dL (0.6-1.0) Estimated GFR (Cockcroft-Gault) 66.5 BUN/Creatinine Ratio 50 (6-20) Glucose Level 164 mg/dL (70-99) Calcium Level 8.8 mg/dL (8.5-10.1) Phosphorus Level 3.4 mg/dL (2.6-4.7) Magnesium Level 2.2 mg/dL (1.8-2.4) Total Bilirubin 0.5 mg/dL (0.2-1.0) Aspartate Amino Transf (AST/SGOT) 39 U/L (15-37) Alanine Aminotransferase (ALT/SGPT) 36 U/L (14-59) Alkaline Phosphatase 127 U/L (46-116) Total Protein 5.6 g/dL (6.4-8.2) Albumin 1.8 g/dL (3.4-5.0) Albumin/Globulin Ratio 0.5 (1.0-1.7) Triglycerides Level 174 mg/dL (0-150) Test 08/22/19 06:15 Glucose (Fingerstick) 153 mg/dL (70-99) Microbiology 08/18/19 Aerobic Culture - Preliminary, Resulted 08/18/19 Aerobic Culture Result 1 (ALEXANDRA) - Preliminary, Resulted 08/18/19 Gram Stain - Final, Resulted 08/18/19 Gram Stain Result 1 (ALEXANDRA) - Final, Resulted 08/18/19 Gram Stain Result 2 (ALEXANDRA) - Final, Resulted 08/17/19 Blood Culture - Preliminary, Resulted NO GROWTH AFTER 4 DAYS 08/15/19 Aerobic and Anaerobic Culture - Final, Complete 08/15/19 Anaerobic Culture Result 1 (ALEXANDRA) - Final, Complete 08/15/19 Aerobic Culture - Final, Complete 08/15/19 Aerobic Culture Result 1 (ALEXANDRA) - Final, Complete 08/15/19 Gram Stain - Final, Complete 08/15/19 Gram Stain Result 1 (ALEXANDRA) - Final, Complete 08/15/19 Gram Stain Result 2 (ALEXANDRA) - Final, Complete 07/31/19 Urine Culture - Final, Complete 07/31/19 Urine Culture Result 1 (ALEXANDRA) - Final, Complete Medications Current Medications Sodium Chloride 1,000 ml @ 1,000 mls/hr Q1H IV Last administered on 07/04/19at 03:00; Start 07/04/19 at 03:00; Stop 07/04/19 at 03:59; Status DC Ondansetron HCl (Zofran) 4 mg 1X ONCE IVP Last administered on 07/04/19at 03:27; Start 07/04/19 at 03:00; Stop 07/04/19 at 03:01; Status DC Morphine Sulfate (Morphine Sulfate) 4 mg 1X ONCE IV ; Start 07/04/19 at 03:00; Stop 07/04/19 at 03:01; Status Cancel Ketorolac Tromethamine (Toradol 30mg Vial) 30 mg 1X ONCE IV Last administered on 07/04/19at 02:54; Start 07/04/19 at 03:00; Stop 07/04/19 at 03:01; Status DC Fentanyl Citrate (Fentanyl 2ml Vial) 25 mcg 1X ONCE IVP Last administered on 07/04/19at 03:23; Start 07/04/19 at 03:30; Stop 07/04/19 at 03:31; Status DC Fentanyl Citrate (Fentanyl 2ml Vial) 100 mcg STK-MED ONCE .ROUTE ; Start 07/04/19 at 03:18; Stop 07/04/19 at 03:18; Status DC Iohexol (Omnipaque 350 Mg/ml) 90 ml 1X ONCE IV Last administered on 07/04/19at 03:25; Start 07/04/19 at 03:30; Stop 07/04/19 at 03:31; Status DC Info (CONTRAST GIVEN -- Rx MONITORING) 1 each PRN DAILY PRN MC SEE COMMENTS; Start 07/04/19 at 03:30; Stop 07/06/19 at 03:29; Status DC Hydromorphone HCl (Dilaudid) 0.5 mg 1X ONCE IV Last administered on 07/04/19at 03:55; Start 07/04/19 at 04:30; Stop 07/04/19 at 04:32; Status DC Ondansetron HCl (Zofran) 4 mg PRN Q8HRS PRN IV NAUSEA/VOMITING 1ST CHOICE; Start 07/04/19 at 05:00; Stop 07/04/19 at 09:27; Status DC Morphine Sulfate (Morphine Sulfate) 2 mg PRN Q2HR PRN IV SEVERE PAIN 7-10 Last administered on 07/05/19at 12:26; Start 07/04/19 at 05:00; Stop 07/05/19 at 14:15; Status DC Sodium Chloride 1,000 ml @ 125 mls/hr Q8H IV Last administered on 07/04/19at 20:56; Start 07/04/19 at 05:00; Stop 07/05/19 at 04:59; Status DC Hydromorphone HCl (Dilaudid) 0.5 mg PRN Q3HRS PRN IV SEVERE PAIN 7-10 Last administered on 07/05/19at 10:06; Start 07/04/19 at 05:00; Stop 07/05/19 at 12:01; Status DC Piperacillin Sod/ Tazobactam Sod 4.5 gm/Sodium Chloride 100 ml @ 200 mls/hr 1X ONCE IV Last administered on 07/04/19at 05:44; Start 07/04/19 at 06:00; Stop 07/04/19 at 06:29; Status DC Ondansetron HCl (Zofran) 4 mg PRN Q4HRS PRN IV NAUSEA/VOMITING 1ST CHOICE Last administered on 08/22/19at 02:11; Start 07/04/19 at 09:30 Insulin Human Lispro (HumaLOG) 0-9 UNITS Q6HRS SQ Last administered on 08/18/19at 17:29; Start 07/04/19 at 09:30 Dextrose (Dextrose 50%-Water Syringe) 12.5 gm PRN Q15MIN PRN IV SEE COMMENTS; Start 07/04/19 at 09:30 Pantoprazole Sodium (PROTONIX VIAL for IV PUSH) 40 mg DAILYAC IVP Last administered on 08/21/19at 09:19; Start 07/04/19 at 11:30 Prochlorperazine Edisylate (Compazine) 10 mg PRN Q6HRS PRN IV NAUSEA/VOMITING, 2nd CHOICE Last administered on 08/22/19at 06:06; Start 07/04/19 at 17:45 Atenolol (Tenormin) 100 mg DAILY PO ; Start 07/05/19 at 09:00; Stop 07/04/19 at 20:08; Status DC Metoprolol Tartrate (Lopressor Vial) 2.5 mg Q6HRS IVP Last administered on 07/05/19at 05:51; Start 07/04/19 at 20:15; Stop 07/05/19 at 10:02; Status DC Metoprolol Tartrate (Lopressor Vial) 5 mg Q6HRS IVP Last administered on 07/14/19at 00:12; Start 07/05/19 at 10:15; Stop 07/16/19 at 08:48; Status DC Hydromorphone HCl (Dilaudid) 1 mg PRN Q3HRS PRN IV SEVERE PAIN 7-10 Last administered on 07/11/19at 05:13; Start 07/05/19 at 12:00; Stop 07/19/19 at 00:25; Status DC Lidocaine HCl (Buffered Lidocaine 1%) 3 ml STK-MED ONCE .ROUTE ; Start 07/05/19 at 12:55; Stop 07/05/19 at 12:56; Status DC Albumin Human 500 ml @ 125 mls/hr 1X ONCE IV Last administered on 07/05/19at 14:33; Start 07/05/19 at 14:30; Stop 07/05/19 at 18:32; Status DC Norepinephrine Bitartrate 8 mg/ Dextrose 258 ml @ 17.299 mls/ hr CONT PRN IV PER PROTOCOL Last administered on 08/02/19at 12:48; Start 07/05/19 at 15:30; Stop 08/05/19 at 09:19; Status DC Sodium Chloride 1,000 ml @ 125 mls/hr Q8H IV Last administered on 07/05/19at 21:04; Start 07/05/19 at 16:00; Stop 07/06/19 at 02:42; Status DC Albumin Human 500 ml @ 125 mls/hr PRN BID PRN IV After every 2L NSS & BP < 90mm Last administered on 07/20/19at 14:21; Start 07/05/19 at 16:00 Iohexol (Omnipaque 300 Mg/ml) 60 ml 1X ONCE IV Last administered on 07/05/19at 17:20; Start 07/05/19 at 17:00; Stop 07/05/19 at 17:01; Status DC Info (CONTRAST GIVEN -- Rx MONITORING) 1 each PRN DAILY PRN MC SEE COMMENTS; Start 07/05/19 at 17:00; Stop 07/07/19 at 16:59; Status DC Meropenem 1 gm/ Sodium Chloride 100 ml @ 200 mls/hr Q8HRS IV Last administered on 07/06/19at 05:45; Start 07/05/19 at 20:00; Stop 07/06/19 at 08:48; Status DC Furosemide (Lasix) 40 mg 1X ONCE IVP Last administered on 07/05/19at 22:12; Start 07/05/19 at 22:30; Stop 07/05/19 at 22:31; Status DC Calcium Chloride 1000 mg/Sodium Chloride 110 ml @ 220 mls/hr 1X ONCE IV Last administered on 07/05/19at 22:11; Start 07/05/19 at 22:30; Stop 07/05/19 at 22:59; Status DC Albuterol Sulfate (Ventolin Neb Soln) 2.5 mg 1X ONCE NEB Last administered on 07/06/19at 00:56; Start 07/05/19 at 22:30; Stop 07/05/19 at 22:31; Status DC Insulin Human Regular (HumuLIN R VIAL) 5 unit 1X ONCE IV Last administered on 07/05/19at 22:14; Start 07/05/19 at 22:30; Stop 07/05/19 at 22:31; Status DC Magnesium Sulfate 50 ml @ 25 mls/hr 1X ONCE IV Last administered on 07/06/19at 02:57; Start 07/06/19 at 03:00; Stop 07/06/19 at 04:59; Status DC Calcium Gluconate 1000 mg/Sodium Chloride 110 ml @ 220 mls/hr 1X ONCE IV Last administered on 07/06/19at 02:46; Start 07/06/19 at 03:00; Stop 07/06/19 at 03:29; Status DC Sodium Chloride 1,000 ml @ 200 mls/hr Q5H IV Last administered on 07/06/19at 02:46; Start 07/06/19 at 03:00; Stop 07/06/19 at 10:21; Status DC Calcium Gluconate 1000 mg/Sodium Chloride 110 ml @ 220 mls/hr 1X ONCE IV Last administered on 07/06/19at 03:21; Start 07/06/19 at 03:30; Stop 07/06/19 at 03:59; Status DC Sodium Bicarbonate 50 meq/Sodium Chloride 1,050 ml @ 75 mls/hr Q14H IV Last administered on 07/10/19at 21:10; Start 07/06/19 at 07:30; Stop 07/11/19 at 10:28; Status DC Calcium Gluconate 2000 mg/Sodium Chloride 120 ml @ 220 mls/hr 1X ONCE IV Last administered on 07/06/19at 09:05; Start 07/06/19 at 07:30; Stop 07/06/19 at 08:02; Status DC Lidocaine HCl (Xylocaine-Mpf 1% 2ml Vial) 2 ml STK-MED ONCE .ROUTE ; Start 07/06/19 at 08:47; Stop 07/06/19 at 08:47; Status DC Meropenem 500 mg/ Sodium Chloride 50 ml @ 100 mls/hr Q12HR IV Last administered on 07/11/19at 21:01; Start 07/06/19 at 18:00; Stop 07/12/19 at 07:58; Status DC Lidocaine HCl (Buffered Lidocaine 1%) 3 ml STK-MED ONCE .ROUTE ; Start 07/06/19 at 09:46; Stop 07/06/19 at 09:46; Status DC Lidocaine HCl (Buffered Lidocaine 1%) 6 ml 1X ONCE INJ Last administered on 07/06/19at 10:26; Start 07/06/19 at 10:15; Stop 07/06/19 at 10:16; Status DC Info (Tpn Per Pharmacy) 1 each PRN DAILY PRN MC SEE COMMENTS Last administered on 08/21/19at 12:44; Start 07/06/19 at 12:00 Sodium Chloride 1,000 ml @ 1,000 mls/hr Q1H PRN IV hypotension; Start 07/06/19 at 12:07; Stop 07/06/19 at 18:06; Status DC Diphenhydramine HCl (Benadryl) 25 mg 1X PRN PRN IV ITCHING; Start 07/06/19 at 12:15; Stop 07/07/19 at 12:14; Status DC Diphenhydramine HCl (Benadryl) 25 mg 1X PRN PRN IV ITCHING; Start 07/06/19 at 12:15; Stop 07/07/19 at 12:14; Status DC Sodium Chloride 1,000 ml @ 400 mls/hr Q2H30M PRN IV PATENCY; Start 07/06/19 at 12:07; Stop 07/07/19 at 00:06; Status DC Info (PHARMACY MONITORING -- do not chart) 1 each PRN DAILY PRN MC SEE C OMMENTS; Start 07/06/19 at 12:15; Stop 07/08/19 at 08:13; Status DC Sodium Chloride 90 meq/Calcium Gluconate 10 meq/ Multivitamins 10 ml/Chromium/ Copper/Manganese/ Seleni/Zn 1 ml/ Total Parenteral Nutrition/Amino Acids/Dextrose/ Fat Emulsion Intravenous 55.005 ml @ 2.292 mls/hr TPN CONT IV ; Start 07/06/19 at 22:00; Stop 07/06/19 at 12:33; Status DC Info (Tpn Per Pharmacy) 1 each PRN DAILY PRN MC SEE COMMENTS; Start 07/06/19 at 12:30; Status UNV Sodium Chloride 90 meq/Calcium Gluconate 10 meq/ Multivitamins 10 ml/Chromium/ Copper/Manganese/ Seleni/Zn 0.5 ml/ Total Parenteral Nutrition/Amino Acids/Dextrose/ Fat Emulsion Intravenous 1,512 ml @ 63 mls/hr TPN CONT IV Last administered on 07/06/19at 22:06; Start 07/06/19 at 22:00; Stop 07/07/19 at 21:59; Status DC Calcium Carbonate/ Glycine (Tums) 500 mg PRN AFTMEALHC PRN PO INDIGESTION; Start 07/06/19 at 17:45 Calcium Gluconate (Calcium Gluconate) 2,000 mg 1X ONCE IVP Last administered on 07/07/19at 02:19; Start 07/07/19 at 02:15; Stop 07/07/19 at 02:16; Status DC Calcium Chloride 3000 mg/Sodium Chloride 1,030 ml @ 50 mls/hr [id number] IV Last administered on 07/09/19at 02:17; Start 07/07/19 at 08:00; Stop 07/09/19 at 15:23; Status DC Lorazepam (Ativan Inj) 1 mg PRN Q4HRS PRN IVP ANXIETY / AGITATION, 2nd choic Last administered on 08/05/19at 03:51; Start 07/07/19 at 09:00; Stop 08/05/19 at 09:19; Status DC Sodium Chloride 1,000 ml @ 1,000 mls/hr Q1H PRN IV hypotension; Start 07/07/19 at 08:56; Stop 07/07/19 at 14:55; Status DC Albumin Human 200 ml @ 200 mls/hr 1X PRN PRN IV Hypotension; Start 07/07/19 at 09:00; Stop 07/07/19 at 14:59; Status DC Diphenhydramine HCl (Benadryl) 25 mg 1X PRN PRN IV ITCHING; Start 07/07/19 at 09:00; Stop 07/08/19 at 08:59; Status DC Diphenhydramine HCl (Benadryl) 25 mg 1X PRN PRN IV ITCHING; Start 07/07/19 at 09:00; Stop 07/08/19 at 08:59; Status DC Sodium Chloride 1,000 ml @ 400 mls/hr Q2H30M PRN IV PATENCY; Start 07/07/19 at 08:56; Stop 07/07/19 at 20:55; Status DC Info (PHARMACY MONITORING -- do not chart) 1 each PRN DAILY PRN MC SEE COMMENTS; Start 07/07/19 at 09:00; Status UNV Info (PHARMACY MONITORING -- do not chart) 1 each PRN DAILY PRN MC SEE COMMENTS; Start 07/07/19 at 09:00; Stop 07/08/19 at 08:13; Status DC Digoxin (Lanoxin) 500 mcg 1X ONCE IV Last administered on 07/07/19at 10:04; Start 07/07/19 at 10:00; Stop 07/07/19 at 10:01; Status DC Digoxin (Lanoxin) 125 mcg 1X ONCE IV Last administered on 07/07/19at 17:10; Start 07/07/19 at 18:00; Stop 07/07/19 at 18:01; Status DC Magnesium Sulfate 100 ml @ 25 mls/hr 1X ONCE IV Last administered on 07/07/19at 12:48; Start 07/07/19 at 13:00; Stop 07/07/19 at 16:59; Status DC Sodium Chloride 90 meq/Magnesium Sulfate 10 meq/ Calcium Gluconate 20 meq/ Multivitamins 10 ml/Chromium/ Copper/Manganese/ Seleni/Zn 0.5 ml/ Total Parenteral Nutrition/Amino Acids/Dextrose/ Fat Emulsion Intravenous 1,512 ml @ 63 mls/hr TPN CONT IV Last administered on 07/07/19at 22:25; Start 07/07/19 at 22:00; Stop 07/08/19 at 21:59; Status DC Sodium Chloride 1,000 ml @ 1,000 mls/hr Q1H PRN IV hypotension; Start 07/08/19 at 08:05; Stop 07/08/19 at 14:04; Status DC Albumin Human 200 ml @ 200 mls/hr 1X ONCE IV Last administered on 07/08/19at 08:57; Start 07/08/19 at 08:15; Stop 07/08/19 at 09:14; Status DC Diphenhydramine HCl (Benadryl) 25 mg 1X PRN PRN IV ITCHING; Start 07/08/19 at 08:15; Stop 07/09/19 at 08:14; Status DC Diphenhydramine HCl (Benadryl) 25 mg 1X PRN PRN IV ITCHING; Start 07/08/19 at 08:15; Stop 07/09/19 at 08:14; Status DC Sodium Chloride 1,000 ml @ 400 mls/hr Q2H30M PRN IV PATENCY; Start 07/08/19 at 08:05; Stop 07/08/19 at 20:04; Status DC Info (PHARMACY MONITORING -- do not chart) 1 each PRN DAILY PRN MC SEE COMMENTS; Start 07/08/19 at 08:15; Stop 07/12/19 at 07:57; Status DC Sodium Chloride 90 meq/Potassium Chloride 15 meq/ Potassium Phosphate 10 mmol/ Magnesium Sulfate 10 meq/Calcium Gluconate 20 meq/ Multivitamins 10 ml/Chromium/ Copper/Manganese/ Seleni/Zn 0.5 ml/ Total Parenteral Nutrition/Amino Acids/Dextrose/ Fat Emulsion Intravenous 1,512 ml @ 63 mls/hr TPN CONT IV Last administered on 07/08/19at 21:01; Start 07/08/19 at 22:00; Stop 07/09/19 at 21:59; Status DC Potassium Chloride/Water 100 ml @ 100 mls/hr 1X ONCE IV Last administered on 07/08/19at 14:09; Start 07/08/19 at 14:00; Stop 07/08/19 at 14:59; Status DC Benzocaine (Hurricaine One) 1 spray 1X ONCE MM Last administered on 07/08/19at 16:38; Start 07/08/19 at 14:30; Stop 07/08/19 at 14:31; Status DC Lidocaine HCl (Glydo (Lidocaine) Jelly) 1 ramu 1X ONCE MM Last administered on 07/08/19at 16:38; Start 07/08/19 at 14:30; Stop 07/08/19 at 14:31; Status DC Linezolid/Dextrose 300 ml @ 300 mls/hr Q12HR IV Last administered on 07/14/19at 21:04; Start 07/08/19 at 20:00; Stop 07/15/19 at 07:50; Status DC Acetaminophen (Tylenol) 650 mg PRN Q6HRS PRN PO MILD PAIN / TEMP; Start 07/09/19 at 03:30; Stop 07/09/19 at 03:36; Status DC Acetaminophen (Tylenol) 650 mg PRN Q6HRS PRN PEG MILD PAIN / TEMP Last administered on 08/04/19at 19:56; Start 07/09/19 at 03:36 Sodium Chloride 1,000 ml @ 1,000 mls/hr Q1H PRN IV hypotension; Start 07/09/19 at 07:50; Stop 07/09/19 at 13:49; Status DC Albumin Human 200 ml @ 200 mls/hr 1X PRN PRN IV Hypotension; Start 07/09/19 at 08:00; Stop 07/09/19 at 13:59; Status DC Sodium Chloride (Normal Saline Flush) 10 ml 1X PRN PRN IV AP catheter pack; Start 07/09/19 at 08:00; Stop 07/10/19 at 07:59; Status DC Sodium Chloride (Normal Saline Flush) 10 ml 1X PRN PRN IV ACID ADJUSTER catheter pack; Start 07/09/19 at 08:00; Stop 07/10/19 at 07:59; Status DC Sodium Chloride 1,000 ml @ 400 mls/hr Q2H30M PRN IV PATENCY; Start 07/09/19 at 07:50; Stop 07/09/19 at 19:49; Status DC Info (PHARMACY MONITORING -- do not chart) 1 each PRN DAILY PRN MC SEE COMMENTS; Start 07/09/19 at 08:00; Status UNV Info (PHARMACY MONITORING -- do not chart) 1 each PRN DAILY PRN MC SEE COMMENTS; Start 07/09/19 at 08:00; Stop 07/11/19 at 08:25; Status DC Sodium Chloride 90 meq/Potassium Chloride 15 meq/ Potassium Phosphate 10 mmol/ Magnesium Sulfate 10 meq/Calcium Gluconate 20 meq/ Multivitamins 10 ml/Chromium/ Copper/Manganese/ Seleni/Zn 0.5 ml/ Total Parenteral Nutrition/Amino Acids/Dextrose/ Fat Emulsion Intravenous 1,512 ml @ 63 mls/hr TPN CONT IV Last administered on 07/09/19at 20:57; Start 07/09/19 at 22:00; Stop 07/10/19 at 21:59; Status DC Sodium Chloride 90 meq/Potassium Chloride 15 meq/ Potassium Phosphate 15 mmol/ Magnesium Sulfate 10 meq/Calcium Gluconate 20 meq/ Multivitamins 10 ml/Chromium/ Copper/Manganese/ Seleni/Zn 0.5 ml/ Total Parenteral Nutrition/Amino Acids/Dextrose/ Fat Emulsion Intravenous 1,512 ml @ 63 mls/hr TPN CONT IV ; Start 07/10/19 at 22:00; Stop 07/10/19 at 14:16; Status DC Sodium Chloride 90 meq/Potassium Chloride 15 meq/ Potassium Phosphate 15 mmol/ Magnesium Sulfate 10 meq/Calcium Gluconate 20 meq/ Multivitamins 10 ml/Chromium/ Copper/Manganese/ Seleni/Zn 0.5 ml/ Total Parenteral Nutrition/Amino Acids/Dextrose/ Fat Emulsion Intravenous 1,200 ml @ 50 mls/hr TPN CONT IV ; Start 07/10/19 at 22:00; Stop 07/10/19 at 14:17; Status DC Sodium Chloride 90 meq/Potassium Chloride 15 meq/ Potassium Phosphate 10 mmol/ Magnesium Sulfate 10 meq/Calcium Gluconate 20 meq/ Multivitamins 10 ml/Chromium/ Copper/Manganese/ Seleni/Zn 0.5 ml/ Total Parenteral Nutrition/Amino Acids/Dextrose/ Fat Emulsion Intravenous 1,200 ml @ 50 mls/hr TPN CONT IV Last administered on 07/10/19at 23:29; Start 07/10/19 at 22:00; Stop 07/11/19 at 21:59; Status DC Sodium Chloride 1,000 ml @ 1,000 mls/hr Q1H PRN IV hypotension; Start 07/11/19 at 07:28; Stop 07/11/19 at 13:27; Status DC Albumin Human 200 ml @ 200 mls/hr 1X ONCE IV Last administered on 07/11/19at 08:51; Start 07/11/19 at 07:30; Stop 07/11/19 at 08:29; Status DC Diphenhydramine HCl (Benadryl) 25 mg 1X PRN PRN IV ITCHING; Start 07/11/19 at 07:30; Stop 07/12/19 at 07:29; Status DC Diphenhydramine HCl (Benadryl) 25 mg 1X PRN PRN IV ITCHING; Start 07/11/19 at 07:30; Stop 07/12/19 at 07:29; Status DC Sodium Chloride 1,000 ml @ 400 mls/hr Q2H30M PRN IV PATENCY; Start 07/11/19 at 07:28; Stop 07/11/19 at 19:27; Status DC Info (PHARMACY MONITORING -- do not chart) 1 each PRN DAILY PRN MC SEE COMMENTS; Start 07/11/19 at 07:30; Stop 07/22/19 at 13:01; Status DC Metronidazole 100 ml @ 100 mls/hr Q6HRS IV Last administered on 07/27/19at 06:26; Start 07/11/19 at 08:30; Stop 07/27/19 at 09:58; Status DC Micafungin Sodium 100 mg/Dextrose 100 ml @ 100 mls/hr Q24H IV Last administered on 08/18/19at 08:18; Start 07/11/19 at 09:00; Stop 08/18/19 at 20:58; Status DC Propofol 0 ml @ As Directed STK-MED ONCE IV ; Start 07/11/19 at 07:53; Stop 07/11/19 at 07:53; Status DC Etomidate (Amidate) 20 mg STK-MED ONCE IV ; Start 07/11/19 at 07:53; Stop 07/11/19 at 07:54; Status DC Midazolam HCl (Versed) 5 mg STK-MED ONCE .ROUTE ; Start 07/11/19 at 07:57; Stop 07/11/19 at 07:57; Status DC Fentanyl Citrate 30 ml @ 0 mls/hr CONT PRN IV SEE PROTOCOL Last administered on 08/05/19at 06:12; Start 07/11/19 at 08:15; Stop 08/05/19 at 09:19; Status DC Artificial Tears (Artificial Tears) 1 drop PRN Q1HR PRN OU DRY EYE, 1st choice; Start 07/11/19 at 08:15; Stop 08/17/19 at 05:31; Status DC Midazolam HCl 50 mg/Sodium Chloride 50 ml @ 0 mls/hr CONT PRN IV SEE PROTOCOL Last administered on 07/14/19at 22:39; Start 07/11/19 at 08:15; Stop 07/16/19 at 15:59; Status DC Etomidate (Amidate) 8 mg 1X ONCE IV Last administered on 07/11/19at 08:33; Start 07/11/19 at 08:30; Stop 07/11/19 at 08:31; Status DC Succinylcholine Chloride (Anectine) 120 mg 1X ONCE IV Last administered on 07/11/19at 08:34; Start 07/11/19 at 08:30; Stop 07/11/19 at 08:31; Status DC Midazolam HCl (Versed) 5 mg 1X ONCE IV ; Start 07/11/19 at 08:30; Stop 07/11/19 at 08:31; Status DC Potassium Chloride 15 meq/ Bicarbonate Dialysis Soln w/ out KCl 5,007.5 ml @ 1,000 mls/ hr Q5H1M IV Last administered on 07/12/19at 11:11; Start 07/11/19 at 12:00; Stop 07/12/19 at 11:15; Status DC Potassium Chloride 15 meq/ Bicarbonate Dialysis Soln w/ out KCl 5,007.5 ml @ 1,000 mls/ hr Q5H1M IV Last administered on 07/12/19at 11:12; Start 07/11/19 at 12:00; Stop 07/12/19 at 11:17; Status DC Potassium Chloride 15 meq/ Bicarbonate Dialysis Soln w/ out KCl 5,007.5 ml @ 1,000 mls/ hr Q5H1M IV Last administered on 07/12/19at 11:11; Start 07/11/19 at 12:00; Stop 07/12/19 at 11:19; Status DC Sodium Chloride 90 meq/Potassium Chloride 15 meq/ Potassium Phosphate 10 mmol/ Magnesium Sulfate 10 meq/Calcium Gluconate 20 meq/ Multivitamins 10 ml/Chromium/ Copper/Manganese/ Seleni/Zn 0.5 ml/ Total Parenteral Nutrition/Amino Ac ids/Dextrose/ Fat Emulsion Intravenous 1,400 ml @ 58.333 mls/ hr TPN CONT IV Last administered on 07/11/19at 21:42; Start 07/11/19 at 22:00; Stop 07/12/19 at 21:59; Status DC Heparin Sodium (Porcine) (Heparin Sodium) 5,000 unit Q8HRS SQ Last administered on 07/16/19at 05:55; Start 07/11/19 at 15:00; Stop 07/16/19 at 13:28; Status DC Meropenem 500 mg/ Sodium Chloride 50 ml @ 100 mls/hr Q6HRS IV Last administered on 07/13/19at 06:00; Start 07/12/19 at 09:00; Stop 07/13/19 at 07:29; Status DC Potassium Phosphate 20 mmol/ Sodium Chloride 106.6667 ml @ 51.667 m... 1X ONCE IV Last administered on 07/12/19at 11:22; Start 07/12/19 at 10:15; Stop 07/12/19 at 12:18; Status DC Acetaminophen (Tylenol Supp) 650 mg PRN Q6HRS PRN IA MILD PAIN / TEMP > 100.3'F Last administered on 08/21/19at 23:26; Start 07/12/19 at 10:30 Potassium Chloride/Water 100 ml @ 100 mls/hr Q1H IV Last administered on 07/12/19at 12:12; Start 07/12/19 at 11:00; Stop 07/12/19 at 12:59; Status DC Potassium Chloride 20 meq/ Bicarbonate Dialysis Soln w/ out KCl 5,010 ml @ 1,000 mls/hr Q5H1M IV Last administered on 07/13/19at 08:48; Start 07/12/19 at 12:00; Stop 07/13/19 at 13:03; Status DC Potassium Chloride 20 meq/ Bicarbonate Dialysis Soln w/ out KCl 5,010 ml @ 1,000 mls/hr Q5H1M IV Last administered on 07/17/19at 14:52; Start 07/12/19 at 11:30; Stop 07/17/19 at 19:59; Status DC Potassium Chloride 20 meq/ Bicarbonate Dialysis Soln w/ out KCl 5,010 ml @ 1,000 mls/hr Q5H1M IV Last administered on 07/17/19at 14:53; Start 07/12/19 at 11:30; Stop 07/17/19 at 19:59; Status DC Sodium Chloride 90 meq/Potassium Chloride 15 meq/ Potassium Phosphate 15 mmol/ Magnesium Sulfate 10 meq/Calcium Gluconate 15 meq/ Multivitamins 10 ml/Chromium/ Copper/Manganese/ Seleni/Zn 0.5 ml/ Total Parenteral Nutrition/Amino Acids/Dextrose/ Fat Emulsion Intravenous 1,400 ml @ 58.333 mls/ hr TPN CONT IV Last administered on 07/12/19at 22:17; Start 07/12/19 at 22:00; Stop 07/13/19 at 21:59; Status DC Cefepime HCl (Maxipime) 2 gm Q12HR IVP Last administered on 07/26/19at 20:56; Start 07/13/19 at 09:00; Stop 07/27/19 at 09:58; Status DC Daptomycin 500 mg/ Sodium Chloride 50 ml @ 100 mls/hr Q48H IV Last administered on 07/29/19at 09:57; Start 07/13/19 at 08:30; Stop 07/29/19 at 10:07; Status DC Lidocaine HCl (Buffered Lidocaine 1%) 3 ml 1X ONCE INJ Last administered on 07/13/19at 10:27; Start 07/13/19 at 10:30; Stop 07/13/19 at 10:31; Status DC Potassium Phosphate 20 mmol/ Sodium Chloride 106.6667 ml @ 51.667 m... 1X ONCE IV Last administered on 07/13/19at 12:51; Start 07/13/19 at 13:00; Stop 07/13/19 at 15:03; Status DC Sodium Chloride 90 meq/Potassium Chloride 15 meq/ Potassium Phosphate 18 mmol/ Magnesium Sulfate 8 meq/Calcium Gluconate 15 meq/ Multivitamins 10 ml/Chromium/ Copper/Manganese/ Seleni/Zn 0.5 ml/ Total Parenteral Nutrition/Amino Acids/Dextrose/ Fat Emulsion Intravenous 1,400 ml @ 58.333 mls/ hr TPN CONT IV Last administered on 07/13/19at 22:16; Start 07/13/19 at 22:00; Stop 07/14/19 at 21:59; Status DC Potassium Chloride 20 meq/ Bicarbonate Dialysis Soln w/ out KCl 5,010 ml @ 1,000 mls/hr Q5H1M IV Last administered on 07/17/19at 14:54; Start 07/13/19 at 16:00; Stop 07/17/19 at 19:59; Status DC Multi-Ingred Cream/Lotion/Oil/ Oint (Artificial Tears Eye Ointment) 1 ramu PRN Q1HR PRN OU DRY EYE, 2nd choice Last administered on 08/01/19at 08:19; Start 07/13/19 at 17:30 Sodium Chloride 90 meq/Potassium Chloride 15 meq/ Potassium Phosphate 18 mmol/ Magnesium Sulfate 8 meq/Calcium Gluconate 15 meq/ Multivitamins 10 ml/Chromium/ Copper/Manganese/ Seleni/Zn 0.5 ml/ Total Parenteral Nutrition/Amino Acids/Dextrose/ Fat Emulsion Intravenous 1,400 ml @ 58.333 mls/ hr TPN CONT IV Last administered on 07/14/19at 22:00; Start 07/14/19 at 22:00; Stop 07/15/19 at 21:59; Status DC Albumin Human 500 ml @ 125 mls/hr 1X ONCE IV ; Start 07/14/19 at 14:15; Stop 07/14/19 at 18:14; Status DC Sodium Chloride 90 meq/Potassium Chloride 15 meq/ Potassium Phosphate 18 mmol/ Magnesium Sulfate 8 meq/Calcium Gluconate 15 meq/ Multivitamins 10 ml/Chromium/ Copper/Manganese/ Seleni/Zn 0.5 ml/ Insulin Human Regular 10 unit/ Total Parenteral Nutrition/Amino Acids/Dextrose/ Fat Emulsion Intravenous 1,400 ml @ 58.333 mls/ hr TPN CONT IV Last administered on 07/15/19at 21:43; Start 07/15/19 at 22:00; Stop 07/16/19 at 21:59; Status DC Lidocaine HCl (Buffered Lidocaine 1%) 3 ml STK-MED ONCE .ROUTE ; Start 07/13/19 at 10:00; Stop 07/15/19 at 13:57; Status DC Midazolam HCl 100 mg/Sodium Chloride 100 ml @ 7 mls/hr CONT PRN IV SEE PROTOCOL Last administered on 07/27/19at 15:35; Start 07/16/19 at 16:00 Sodium Chloride 90 meq/Potassium Chloride 15 meq/ Potassium Phosphate 18 mmol/ Magnesium Sulfate 8 meq/Calcium Gluconate 15 meq/ Multivitamins 10 ml/Chromium/ Copper/Manganese/ Seleni/Zn 0.5 ml/ Insulin Human Regular 15 unit/ Total Parenteral Nutrition/Amino Acids/Dextrose/ Fat Emulsion Intravenous 1,400 ml @ 58.333 mls/ hr TPN CONT IV Last administered on 07/16/19at 20:34; Start 07/16/19 at 22:00; Stop 07/17/19 at 21:59; Status DC Info (Icu Electrolyte Protocol) 1 ea CONT PRN PRN MC PER PROTOCOL; Start 07/17/19 at 13:15 Sodium Chloride 90 meq/Potassium Chloride 15 meq/ Potassium Phosphate 18 mmol/ Magnesium Sulfate 8 meq/Calcium Gluconate 15 meq/ Multivitamins 10 ml/Chromium/ Copper/Manganese/ Seleni/Zn 0.5 ml/ Insulin Human Regular 15 unit/ Total Parenteral Nutrition/Amino Acids/Dextrose/ Fat Emulsion Intravenous 1,400 ml @ 58.333 mls/ hr TPN CONT IV Last administered on 07/17/19at 22:05; Start 07/17/19 at 22:00; Stop 07/18/19 at 21:59; Status DC Potassium Chloride 15 meq/ Bicarbonate Dialysis Soln w/ out KCl 5,007.5 ml @ 1,000 mls/ hr Q5H1M IV Last administered on 07/20/19at 18:14; Start 07/17/19 at 20:00; Stop 07/21/19 at 13:08; Status DC Potassium Chloride 15 meq/ Bicarbonate Dialysis Soln w/ out KCl 5,007.5 ml @ 1,000 mls/ hr Q5H1M IV Last administered on 07/20/19at 18:14; Start 07/17/19 at 20:00; Stop 07/21/19 at 13:08; Status DC Potassium Chloride 15 meq/ Bicarbonate Dialysis Soln w/ out KCl 5,007.5 ml @ 1,000 mls/ hr Q5H1M IV Last administered on 07/20/19at 18:14; Start 07/17/19 at 20:00; Stop 07/21/19 at 13:08; Status DC Iohexol (Omnipaque 240 Mg/ml) 30 ml 1X ONCE PO Last administered on 07/18/19at 11:30; Start 07/18/19 at 11:30; Stop 07/18/19 at 11:33; Status DC Info (CONTRAST GIVEN -- Rx MONITORING) 1 each PRN DAILY PRN MC SEE COMMENTS; Start 07/18/19 at 11:45; Stop 07/20/19 at 11:44; Status DC Sodium Chloride 90 meq/Potassium Chloride 15 meq/ Potassium Phosphate 18 mmol/ Magnesium Sulfate 8 meq/Calcium Gluconate 15 meq/ Multivitamins 10 ml/Chromium/ Copper/Manganese/ Seleni/Zn 0.5 ml/ Insulin Human Regular 15 unit/ Total Parenteral Nutrition/Amino Acids/Dextrose/ Fat Emulsion Intravenous 1,400 ml @ 58.333 mls/ hr TPN CONT IV Last administered on 07/18/19at 21:47; Start 07/18/19 at 22:00; Stop 07/19/19 at 21:59; Status DC Sodium Chloride 90 meq/Potassium Chloride 15 meq/ Potassium Phosphate 18 mmol/ Magnesium Sulfate 8 meq/Calcium Gluconate 15 meq/ Multivitamins 10 ml/Chromium/ Copper/Manganese/ Seleni/Zn 0.5 ml/ Insulin Human Regular 20 unit/ Total Parenteral Nutrition/Amino Acids/Dextrose/ Fat Emulsion Intravenous 1,400 ml @ 58.333 mls/ hr TPN CONT IV Last administered on 07/19/19at 21:36; Start 07/19/19 at 22:00; Stop 07/20/19 at 21:59; Status DC Alteplase, Recombinant (Cathflo For Central Catheter Clearance) 1 mg 1X ONCE INT CAT Last administered on 07/19/19at 20:03; Start 07/19/19 at 19:30; Stop 07/19/19 at 19:46; Status DC Alteplase, Recombinant (Cathflo For Central Catheter Clearance) 1 mg 1X ONCE INT CAT Last administered on 07/19/19at 22:05; Start 07/19/19 at 22:00; Stop 07/19/19 at 22:01; Status DC Sodium Chloride 90 meq/Potassium Chloride 15 meq/ Potassium Phosphate 18 mmol/ Magnesium Sulfate 8 meq/Calcium Gluconate 15 meq/ Multivitamins 10 ml/Chromium/ Copper/Manganese/ Seleni/Zn 0.5 ml/ Insulin Human Regular 20 unit/ Total Parenteral Nutrition/Amino Acids/Dextrose/ Fat Emulsion Intravenous 1,400 ml @ 58.333 mls/ hr TPN CONT IV Last administered on 07/20/19at 21:30; Start 07/20/19 at 22:00; Stop 07/21/19 at 21:59; Status DC Dexmedetomidine HCl 400 mcg/ Sodium Chloride 100 ml @ 0 mls/hr CONT PRN IV ANXIETY / AGITATION Last administered on 08/22/19at 05:52; Start 07/21/19 at 08:15 Sodium Chloride 500 ml @ 500 mls/hr 1X PRN PRN IV ELEVATED BP, SEE COMMENTS; Start 07/21/19 at 08:15 Atropine Sulfate (ATROPINE 0.5mg SYRINGE) 0.5 mg PRN Q5MIN PRN IV SEE COMMENTS; Start 07/21/19 at 08:15 Furosemide (Lasix) 20 mg 1X ONCE IVP Last administered on 07/21/19at 08:19; Start 07/21/19 at 08:15; Stop 07/21/19 at 08:16; Status DC Lidocaine HCl (Buffered Lidocaine 1%) 3 ml STK-MED ONCE .ROUTE ; Start 07/21/19 at 08:39; Stop 07/21/19 at 08:39; Status DC Lidocaine HCl (Buffered Lidocaine 1%) 6 ml 1X ONCE INJ Last administered on 07/21/19at 09:05; Start 07/21/19 at 09:00; Stop 07/21/19 at 09:06; Status DC Sodium Chloride 90 meq/Potassium Chloride 15 meq/ Potassium Phosphate 18 mmol/ Magnesium Sulfate 8 meq/Calcium Gluconate 15 meq/ Multivitamins 10 ml/Chromium/ Copper/Manganese/ Seleni/Zn 0.5 ml/ Insulin Human Regular 20 unit/ Total Parenteral Nutrition/Amino Acids/Dextrose/ Fat Emulsion Intravenous 1,400 ml @ 58.333 mls/ hr TPN CONT IV Last administered on 07/21/19at 22:45; Start 07/21/19 at 22:00; Stop 07/22/19 at 21:59; Status DC Sodium Chloride 1,000 ml @ 1,000 mls/hr Q1H PRN IV hypotension; Start 07/22/19 at 07:30; Stop 07/22/19 at 13:29; Status DC Albumin Human 200 ml @ 200 mls/hr 1X PRN PRN IV Hypotension Last administered on 07/22/19at 09:36; Start 07/22/19 at 07:30; Stop 07/22/19 at 13:29; Status DC Sodium Chloride (Normal Saline Flush) 10 ml 1X PRN PRN IV AP catheter pack; Start 07/22/19 at 07:30; Stop 07/22/19 at 21:29; Status DC Sodium Chloride (Normal Saline Flush) 10 ml 1X PRN PRN IV ACID ADJUSTER catheter pack; Start 07/22/19 at 07:30; Stop 07/23/19 at 07:29; Status DC Sodium Chloride 1,000 ml @ 400 mls/hr Q2H30M PRN IV PATENCY; Start 07/22/19 at 07:30; Stop 07/22/19 at 19:29; Status DC Info (PHARMACY MONITORING -- do not chart) 1 each PRN DAILY PRN MC SEE COMMENTS; Start 07/22/19 at 07:30; Stop 07/22/19 at 13:02; Status DC Info (PHARMACY MONITORING -- do not chart) 1 each PRN DAILY PRN MC SEE COMME NTS; Start 07/22/19 at 07:30; Stop 07/24/19 at 12:45; Status DC Sodium Chloride 90 meq/Potassium Chloride 15 meq/ Potassium Phosphate 10 mmol/ Magnesium Sulfate 8 meq/Calcium Gluconate 15 meq/ Multivitamins 10 ml/Chromium/ Copper/Manganese/ Seleni/Zn 0.5 ml/ Insulin Human Regular 25 unit/ Total Parenteral Nutrition/Amino Acids/Dextrose/ Fat Emulsion Intravenous 1,400 ml @ 58.333 mls/ hr TPN CONT IV Last administered on 07/22/19at 22:19; Start 07/22/19 at 22:00; Stop 07/23/19 at 21:59; Status DC Heparin Sodium (Porcine) (Heparin Sodium) 5,000 unit Q12HR SQ Last administered on 08/14/19at 08:59; Start 07/22/19 at 21:00; Stop 08/14/19 at 10:05; Status DC Ondansetron HCl (Zofran) 4 mg PRN Q6HRS PRN IV NAUSEA/VOMITING; Start 07/25/19 at 07:00; Stop 07/26/19 at 06:59; Status DC Fentanyl Citrate (Fentanyl 2ml Vial) 25 mcg PRN Q5MIN PRN IV MILD PAIN 1-3; Start 07/25/19 at 07:00; Stop 07/26/19 at 06:59; Status DC Fentanyl Citrate (Fentanyl 2ml Vial) 50 mcg PRN Q5MIN PRN IV MODERATE TO SEVERE PAIN; Start 07/25/19 at 07:00; Stop 07/26/19 at 06:59; Status DC Ringer's Solution 1,000 ml @ 30 mls/hr Q24H IV ; Start 07/25/19 at 07:00; Stop 07/25/19 at 18:59; Status DC Lidocaine HCl (Xylocaine-Mpf 1% 2ml Vial) 2 ml PRN 1X PRN ID PRIOR TO IV START; Start 07/25/19 at 07:00; Stop 07/26/19 at 06:59; Status DC Prochlorperazine Edisylate (Compazine) 5 mg PACU PRN PRN IV NAUSEA, MRX1; Start 07/25/19 at 07:00; Stop 07/26/19 at 06:59; Status DC Sodium Chloride 1,000 ml @ 1,000 mls/hr Q1H PRN IV hypotension; Start 07/23/19 at 09:10; Stop 07/23/19 at 15:09; Status DC Albumin Human 200 ml @ 200 mls/hr 1X PRN PRN IV Hypotension Last administered on 07/23/19at 10:10; Start 07/23/19 at 09:15; Stop 07/23/19 at 15:14; Status DC Sodium Chloride 1,000 ml @ 400 mls/hr Q2H30M PRN IV PATENCY; Start 07/23/19 at 09:10; Stop 07/23/19 at 21:09; Status DC Info (PHARMACY MONITORING -- do not chart) 1 each PRN DAILY PRN MC SEE PIPE TS; Start 07/23/19 at 09:15; Stop 07/24/19 at 12:45; Status DC Info (PHARMACY MONITORING -- do not chart) 1 each PRN DAILY PRN MC SEE COMMENTS; Start 07/23/19 at 09:15; Stop 07/24/19 at 12:45; Status DC Sodium Chloride 90 meq/Potassium Chloride 15 meq/ Potassium Phosphate 10 mmol/ Magnesium Sulfate 8 meq/Calcium Gluconate 15 meq/ Multivitamins 10 ml/Chromium/ Copper/Manganese/ Seleni/Zn 0.5 ml/ Insulin Human Regular 25 unit/ Total Parenteral Nutrition/Amino Acids/Dextrose/ Fat Emulsion Intravenous 1,400 ml @ 58.333 mls/ hr TPN CONT IV Last administered on 07/23/19at 22:10; Start 07/23/19 at 22:00; Stop 07/24/19 at 21:59; Status DC Magnesium Sulfate 50 ml @ 25 mls/hr PRN DAILY PRN IV for Mag < 1.7 on am labs Last administered on 08/08/19at 17:27; Start 07/24/19 at 09:15 Sodium Chloride 90 meq/Potassium Chloride 15 meq/ Potassium Phosphate 10 mmol/ Magnesium Sulfate 8 meq/Calcium Gluconate 15 meq/ Multivitamins 10 ml/Chromium/ Copper/Manganese/ Seleni/Zn 0.5 ml/ Insulin Human Regular 25 unit/ Total Parenteral Nutrition/Amino Acids/Dextrose/ Fat Emulsion Intravenous 1,400 ml @ 58.333 mls/ hr TPN CONT IV Last administered on 07/24/19at 21:20; Start 07/24/19 at 22:00; Stop 07/25/19 at 21:59; Status DC Sodium Chloride 1,000 ml @ 1,000 mls/hr Q1H PRN IV hypotension; Start 07/24/19 at 12:23; Stop 07/24/19 at 18:22; Status DC Albumin Human 200 ml @ 200 mls/hr 1X ONCE IV Last administered on 07/24/19at 13:34; Start 07/24/19 at 12:30; Stop 07/24/19 at 13:29; Status DC Diphenhydramine HCl (Benadryl) 25 mg 1X PRN PRN IV ITCHING; Start 07/24/19 at 12:30; Stop 07/25/19 at 12:29; Status DC Diphenhydramine HCl (Benadryl) 25 mg 1X PRN PRN IV ITCHING; Start 07/24/19 at 12:30; Stop 07/25/19 at 12:29; Status DC Info (PHARMACY MONITORING -- do not chart) 1 each PRN DAILY PRN MC SEE CO MMENTS; Start 07/24/19 at 12:30; Status Cancel Bupivacaine HCl/ Epinephrine Bitart (Sensorcain-Epi 0.5%-1:[id number] Mpf) 30 ml STK-MED ONCE .ROUTE Last administered on 07/25/19at 11:44; Start 07/25/19 at 11:00; Stop 07/25/19 at 11:01; Status DC Cellulose (Surgicel Fibrillar 1x2) 1 each STK-MED ONCE .ROUTE ; Start 07/25/19 at 11:00; Stop 07/25/19 at 11:01; Status DC Sodium Chloride 90 meq/Potassium Chloride 15 meq/ Potassium Phosphate 10 mmol/ Magnesium Sulfate 12 meq/Calcium Gluconate 15 meq/ Multivitamins 10 ml/Chromium/ Copper/Manganese/ Seleni/Zn 0.5 ml/ Insulin Human Regular 25 unit/ Total Parenteral Nutrition/Amino Acids/Dextrose/ Fat Emulsion Intravenous 1,400 ml @ 58.333 mls/ hr TPN CONT IV Last administered on 07/25/19at 22:24; Start 07/25/19 at 22:00; Stop 07/26/19 at 21:59; Status DC Propofol 20 ml @ As Directed STK-MED ONCE IV ; Start 07/25/19 at 11:07; Stop 07/25/19 at 11:07; Status DC Cellulose (Surgicel Hemostat 4x8) 1 each STK-MED ONCE .ROUTE Last administered on 07/25/19at 11:44; Start 07/25/19 at 11:55; Stop 07/25/19 at 11:56; Status DC Sevoflurane (Ultane) 60 ml STK-MED ONCE IH ; Start 07/25/19 at 12:46; Stop 07/25/19 at 12:46; Status DC Sodium Chloride 1,000 ml @ 1,000 mls/hr Q1H PRN IV hypotension; Start 07/25/19 at 13:51; Stop 07/25/19 at 19:50; Status DC Albumin Human 200 ml @ 200 mls/hr 1X PRN PRN IV Hypotension Last administered on 07/25/19at 14:51; Start 07/25/19 at 14:00; Stop 07/25/19 at 19:59; Status DC Diphenhydramine HCl (Benadryl) 25 mg 1X PRN PRN IV ITCHING; Start 07/25/19 at 14:00; Stop 07/26/19 at 13:59; Status DC Diphenhydramine HCl (Benadryl) 25 mg 1X PRN PRN IV ITCHING; Start 07/25/19 at 14:00; Stop 07/26/19 at 13:59; Status DC Sodium Chloride 1,000 ml @ 400 mls/hr Q2H30M PRN IV PATENCY; Start 07/25/19 at 13:51; Stop 07/26/19 at 01:50; Status DC Info (PHARMACY MONITORING -- do not chart) 1 each PRN DAILY PRN MC SEE COMMENTS; Start 07/25/19 at 14:00; Stop 07/28/19 at 08:16; Status DC Heparin Sodium (Porcine) (Hep Lock Adult) 500 unit STK-MED ONCE IVP ; Start 07/26/19 at 09:29; Stop 07/26/19 at 09:30; Status DC Sodium Chloride 1,000 ml @ 1,000 mls/hr Q1H PRN IV hypotension; Start 07/26/19 at 10:43; Stop 07/26/19 at 16:42; Status DC Sodium Chloride 1,000 ml @ 400 mls/hr Q2H30M PRN IV PATENCY; Start 07/26/19 at 10:43; Stop 07/26/19 at 22:42; Status DC Info (PHARMACY MONITORING -- do not chart) 1 each PRN DAILY PRN MC SEE COMMENTS; Start 07/26/19 at 10:45; Status UNV Info (PHARMACY MONITORING -- do not chart) 1 each PRN DAILY PRN MC SEE COMMENTS; Start 07/26/19 at 10:45; Status UNV Sodium Chloride 90 meq/Potassium Chloride 15 meq/ Magnesium Sulfate 12 meq/Calcium Gluconate 15 meq/ Multivitamins 10 ml/Chromium/ Copper/Manganese/ Seleni/Zn 0.5 ml/ Insulin Human Regular 25 unit/ Total Parenteral Nutrition/Amino Acids/Dextrose/ Fat Emulsion Intravenous 1,400 ml @ 58.333 mls/ hr TPN CONT IV Last administered on 07/26/19at 22:13; Start 07/26/19 at 22:00; Stop 07/27/19 at 21:59; Status DC Sodium Chloride 1,000 ml @ 1,000 mls/hr Q1H PRN IV hypotension; Start 07/27/19 at 07:50; Stop 07/27/19 at 13:49; Status DC Albumin Human 200 ml @ 200 mls/hr 1X ONCE IV ; Start 07/27/19 at 08:00; Stop 07/27/19 at 08:53; Status DC Diphenhydramine HCl (Benadryl) 25 mg 1X PRN PRN IV ITCHING; Start 07/27/19 at 08:00; Stop 07/28/19 at 07:59; Status DC Diphenhydramine HCl (Benadryl) 25 mg 1X PRN PRN IV ITCHING; Start 07/27/19 at 08:00; Stop 07/28/19 at 07:59; Status DC Info (PHARMACY MONITORING -- do not chart) 1 each PRN DAILY PRN MC SEE COMMENTS; Start 07/27/19 at 08:00; Stop 07/28/19 at 08:16; Status DC Albumin Human 50 ml @ 50 mls/hr 1X ONCE IV ; Start 07/27/19 at 08:53; Stop 07/27/19 at 08:56; Status DC Albumin Human 200 ml @ 50 mls/hr PRN 1X PRN IV HYPOTENSION Last administered on 08/02/19at 11:54; Start 07/27/19 at 09:00 Meropenem 500 mg/ Sodium Chloride 50 ml @ 100 mls/hr Q12H IV Last administered on 08/16/19at 10:45; Start 07/27/19 at 10:00; Stop 08/16/19 at 12:37; Status DC Sodium Chloride 90 meq/Magnesium Sulfate 12 meq/ Calcium Gluconate 15 meq/ Multivitamins 10 ml/Chromium/ Copper/Manganese/ Seleni/Zn 0.5 ml/ Insulin Human Regular 25 unit/ Total Parenteral Nutrition/Amino Acids/Dextrose/ Fat Emulsion Intravenous 1,400 ml @ 58.333 mls/ hr TPN CONT IV Last administered on 07/27/19at 21:41; Start 07/27/19 at 22:00; Stop 07/28/19 at 21:59; Status DC Sodium Chloride 1,000 ml @ 1,000 mls/hr Q1H PRN IV hypotension; Start 07/28/19 at 07:58; Stop 07/28/19 at 13:57; Status DC Albumin Human 200 ml @ 200 mls/hr 1X PRN PRN IV Hypotension Last administered on 07/28/19at 09:30; Start 07/28/19 at 08:00; Stop 07/28/19 at 13:59; Status DC Sodium Chloride 1,000 ml @ 400 mls/hr Q2H30M PRN IV PATENCY; Start 07/28/19 at 07:58; Stop 07/28/19 at 19:57; Status DC Info (PHARMACY MONITORING -- do not chart) 1 each PRN DAILY PRN MC SEE COMMENTS; Start 07/28/19 at 08:00; Status Cancel Info (PHARMACY MONITORING -- do not chart) 1 each PRN DAILY PRN MC SEE COMMENTS; Start 07/28/19 at 08:15; Status UNV Sodium Chloride 90 meq/Potassium Phosphate 5 mmol/ Magnesium Sulfate 12 meq/Calcium Gluconate 15 meq/ Multivitamins 10 ml/Chromium/ Copper/Manganese/ Seleni/Zn 0.5 ml/ Insulin Human Regular 30 unit/ Total Parenteral Nutrition/Amino Acids/Dextrose/ Fat Emulsion Intravenous 1,400 ml @ 58.333 mls/ hr TPN CONT IV Last administered on 07/28/19at 22:08; Start 07/28/19 at 22:00; Stop 07/29/19 at 21:59; Status DC Linezolid/Dextrose 300 ml @ 300 mls/hr Q12HR IV Last administered on 08/08/19at 20:40; Start 07/29/19 at 11:00; Stop 08/09/19 at 08:10; Status DC Sodium Chloride 90 meq/Potassium Phosphate 15 mmol/ Magnesium Sulfate 12 meq/Calcium Gluconate 15 meq/ Multivitamins 10 ml/Chromium/ Copper/Manganese/ Seleni/Zn 0.5 ml/ Insulin Human Regular 30 unit/ Total Parenteral Nutrition/Ami no Acids/Dextrose/ Fat Emulsion Intravenous 1,400 ml @ 58.333 mls/ hr TPN CONT IV Last administered on 07/29/19at 21:49; Start 07/29/19 at 22:00; Stop 07/30/19 at 21:59; Status DC Sodium Chloride 90 meq/Potassium Phosphate 15 mmol/ Magnesium Sulfate 12 meq/Calcium Gluconate 15 meq/ Multivitamins 10 ml/Chromium/ Copper/Manganese/ Seleni/Zn 0.5 ml/ Insulin Human Regular 40 unit/ Total Parenteral Nutrition/Amino Acids/Dextrose/ Fat Emulsion Intravenous 1,400 ml @ 58.333 mls/ hr TPN CONT IV Last administered on 07/30/19at 21:21; Start 07/30/19 at 22:00; Stop 07/31/19 at 21:59; Status DC Sodium Chloride 1,000 ml @ 1,000 mls/hr Q1H PRN IV hypotension; Start 07/30/19 at 13:26; Stop 07/30/19 at 19:25; Status DC Albumin Human 200 ml @ 200 mls/hr 1X PRN PRN IV Hypotension Last administered on 07/30/19at 15:00; Start 07/30/19 at 13:30; Stop 07/30/19 at 19:29; Status DC Sodium Chloride (Normal Saline Flush) 10 ml 1X PRN PRN IV AP catheter pack; Start 07/30/19 at 13:30; Stop 07/31/19 at 13:29; Status DC Sodium Chloride (Normal Saline Flush) 10 ml 1X PRN PRN IV ACID ADJUSTER catheter pack; Start 07/30/19 at 13:30; Stop 07/31/19 at 13:29; Status DC Sodium Chloride 1,000 ml @ 400 mls/hr Q2H30M PRN IV PATENCY; Start 07/30/19 at 13:26; Stop 07/31/19 at 01:25; Status DC Info (PHARMACY MONITORING -- do not chart) 1 each PRN DAILY PRN MC SEE COMMENTS; Start 07/30/19 at 13:30; Stop 07/30/19 at 13:33; Status DC Info (PHARMACY MONITORING -- do not chart) 1 each PRN DAILY PRN MC SEE COMMENTS; Start 07/30/19 at 13:30; Stop 07/30/19 at 13:34; Status DC Sodium Chloride 90 meq/Potassium Phosphate 19 mmol/ Magnesium Sulfate 12 meq/Calcium Gluconate 15 meq/ Multivitamins 10 ml/Chromium/ Copper/Manganese/ Seleni/Zn 0.5 ml/ Insulin Human Regular 40 unit/ Total Parenteral Nutrition/Alfaro o Acids/Dextrose/ Fat Emulsion Intravenous 1,400 ml @ 58.333 mls/ hr TPN CONT IV Last administered on 07/31/19at 21:54; Start 07/31/19 at 22:00; Stop 08/01/19 at 21:59; Status DC Sodium Chloride 1,000 ml @ 1,000 mls/hr Q1H PRN IV hypotension; Start 08/01/19 at 09:35; Stop 08/01/19 at 15:34; Status DC Albumin Human 200 ml @ 200 mls/hr 1X PRN PRN IV Hypotension; Start 08/01/19 at 09:45; Stop 08/01/19 at 15:44; Status DC Diphenhydramine HCl (Benadryl) 25 mg 1X PRN PRN IV ITCHING; Start 08/01/19 at 09:45; Stop 08/02/19 at 09:44; Status DC Diphenhydramine HCl (Benadryl) 25 mg 1X PRN PRN IV ITCHING; Start 08/01/19 at 09:45; Stop 08/02/19 at 09:44; Status DC Sodium Chloride 1,000 ml @ 400 mls/hr Q2H30M PRN IV PATENCY; Start 08/01/19 at 09:35; Stop 08/01/19 at 21:34; Status DC Info (PHARMACY MONITORING -- do not chart) 1 each PRN DAILY PRN MC SEE COMMENTS; Start 08/01/19 at 09:45; Status Cancel Sodium Chloride 100 meq/Potassium Phosphate 19 mmol/ Magnesium Sulfate 12 meq/Calcium Gluconate 15 meq/ Multivitamins 10 ml/Chromium/ Copper/Manganese/ Seleni/Zn 0.5 ml/ Insulin Human Regular 40 unit/ Potassium Chloride 20 meq/ Total Parenteral Nutrition/Amino Acids/Dextrose/ Fat Emulsion Intravenous 1,400 ml @ 58.333 mls/ hr TPN CONT IV Last administered on 08/01/19at 22:02; Start 08/01/19 at 22:00; Stop 08/02/19 at 21:59; Status DC Furosemide (Lasix) 40 mg 1X ONCE IVP Last administered on 08/01/19at 14:39; Start 08/01/19 at 14:30; Stop 08/01/19 at 14:31; Status DC Metronidazole 100 ml @ 100 mls/hr Q8HRS IV Last administered on 4/21/20at 06:04; Start 08/02/19 at 10:00; Stop 08/09/19 at 08:10; Status DC Sodium Chloride 1,000 ml @ 1,000 mls/hr Q1H PRN IV hypotension; Start 08/02/19 at 08:00; Stop 08/02/19 at 13:59; Status DC Albumin Human 200 ml @ 200 mls/hr 1X PRN PRN IV Hypotension; Start 08/02/19 at 08:00; Stop 08/02/19 at 13:59; Status DC Sodium Chloride 1,000 ml @ 400 mls/hr Q2H30M PRN IV PATENCY; Start 08/02/19 at 08:00; Stop 08/02/19 at 19:59; Status DC Info (PHARMACY MONITORING -- do not chart) 1 each PRN DAILY PRN MC SEE COMMENTS; Start 08/02/19 at 11:30; Status UNV Info (PHARMACY MONITORING -- do not chart) 1 each PRN DAILY PRN MC SEE COMMENTS; Start 08/02/19 at 11:30; Stop 08/04/19 at 12:13; Status DC Sodium Chloride 100 meq/Potassium Phosphate 19 mmol/ Magnesium Sulfate 12 meq/Calcium Gluconate 15 meq/ Multivitamins 10 ml/Chromium/ Copper/Manganese/ Seleni/Zn 0.5 ml/ Insulin Human Regular 40 unit/ Potassium Chloride 20 meq/ Total Parenteral Nutrition/Amino Acids/Dextrose/ Fat Emulsion Intravenous 1,400 ml @ 58.333 mls/ hr TPN CONT IV Last administered on 08/02/19at 21:52; Start 08/02/19 at 22:00; Stop 08/03/19 at 21:59; Status DC Sodium Chloride (Normal Saline Flush) 10 ml QSHIFT PRN IV AFTER MEDS AND BLOOD DRAWS; Start 08/02/19 at 15:00 Sodium Chloride (Normal Saline Flush) 10 ml PRN Q5MIN PRN IV AFTER MEDS AND BLOOD DRAWS; Start 08/02/19 at 15:00 Sodium Chloride (Normal Saline Flush) 20 ml PRN Q5MIN PRN IV AFTER MEDS AND BLOOD DRAWS; Start 08/02/19 at 15:00 Sodium Chloride 100 meq/Potassium Phosphate 19 mmol/ Magnesium Sulfate 12 meq/Calcium Gluconate 15 meq/ Multivitamins 10 ml/Chromium/ Copper/Manganese/ Seleni/Zn 0.5 ml/ Insulin Human Regular 40 unit/ Potassium Chloride 20 meq/ Total Parenteral Nutrition/Amino Acids/Dextrose/ Fat Emulsion Intravenous 1,400 ml @ 58.333 mls/ hr TPN CONT IV Last administered on 08/03/19at 21:20; Start 08/03/19 at 22:00; Stop 08/04/19 at 21:59; Status DC Lidocaine HCl (Buffered Lidocaine 1%) 3 ml STK-MED ONCE .ROUTE ; Start 08/03/19 at 13:16; Stop 08/03/19 at 13:16; Status DC Lidocaine HCl (Buffered Lidocaine 1%) 6 ml 1X ONCE INJ Last administered on 08/03/19at 13:45; Start 08/03/19 at 13:30; Stop 08/03/19 at 13:31; Status DC Albumin Human 100 ml @ 100 mls/hr 1X ONCE IV Last administered on 08/03/19at 15:41; Start 08/03/19 at 15:00; Stop 08/03/19 at 15:59; Status DC Albumin Human 50 ml @ 50 mls/hr 1X ONCE IV Last administered on 08/03/19at 15:00; Start 08/03/19 at 15:00; Stop 08/03/19 at 15:59; Status DC Info (PHARMACY MONITORING -- do not chart) 1 each PRN DAILY PRN MC SEE COMMENTS; Start 08/04/19 at 11:30; Status Cancel Info (PHARMACY MONITORING -- do not chart) 1 each PRN DAILY PRN MC SEE COMMENTS; Start 08/04/19 at 11:30; Status UNV Sodium Chloride 100 meq/Potassium Phosphate 10 mmol/ Magnesium Sulfate 12 meq/Calcium Gluconate 15 meq/ Multivitamins 10 ml/Chromium/ Copper/Manganese/ Seleni/Zn 0.5 ml/ Insulin Human Regular 35 unit/ Potassium Chloride 20 meq/ Total Parenteral Nutrition/Amino Acids/Dextrose/ Fat Emulsion Intravenous 1,400 ml @ 58.333 mls/ hr TPN CONT IV Last administered on 08/04/19at 22:10; Start 08/04/19 at 22:00; Stop 08/05/19 at 21:59; Status DC Sodium Chloride 100 meq/Potassium Phosphate 5 mmol/ Magnesium Sulfate 12 meq/Calcium Gluconate 15 meq/ Multivitamins 10 ml/Chromium/ Copper/Manganese/ Seleni/Zn 0.5 ml/ Insulin Human Regular 35 unit/ Potassium Chloride 20 meq/ Total Parenteral Nutrition/Amino Acids/Dextrose/ Fat Emulsion Intravenous 1,400 ml @ 58.333 mls/ hr TPN CONT IV Last administered on 08/05/19at 22:59; Start 08/05/19 at 22:00; Stop 08/06/19 at 21:59; Status DC Sodium Chloride 1,000 ml @ 1,000 mls/hr Q1H PRN IV hypotension; Start 08/06/19 at 08:27; Stop 08/06/19 at 14:26; Status DC Albumin Human 200 ml @ 200 mls/hr 1X PRN PRN IV Hypotension Last administered on 08/06/19at 09:18; Start 08/06/19 at 08:30; Stop 08/06/19 at 14:29; Status DC Sodium Chloride 1,000 ml @ 400 mls/hr Q2H30M PRN IV PATENCY; Start 08/06/19 at 08:27; Stop 08/06/19 at 20:26; Status DC Info (PHARMACY MONITORING -- do not chart) 1 each PRN DAILY PRN MC SEE COMMENTS; Start 08/06/19 at 08:30; Status Cancel Info (PHARMACY MONITORING -- do not chart) 1 each PRN DAILY PRN MC SEE COMMENTS; Start 08/06/19 at 08:30; Stop 08/14/19 at 13:10; Status DC Sodium Chloride 100 meq/Potassium Chloride 40 meq/ Magnesium Sulfate 15 meq/Calcium Gluconate 15 meq/ Multivitamins 10 ml/Chromium/ Copper/Manganese/ Seleni/Zn 0.5 ml/ Insulin Human Regular 35 unit/ Total Parenteral Nutrition/Amino Acids/Dextrose/ Fat Emulsion Intravenous 1,400 ml @ 58.333 mls/ hr TPN CONT IV Last administered on 08/06/19at 22:00; Start 08/06/19 at 22:00; Stop 08/07/19 at 21:59; Status DC Potassium Chloride/Water 100 ml @ 100 mls/hr 1X ONCE IV Last administered on 08/06/19at 17:28; Start 08/06/19 at 14:45; Stop 08/06/19 at 15:44; Status DC Sodium Chloride 100 meq/Potassium Chloride 40 meq/ Magnesium Sulfate 15 meq/Calcium Gluconate 15 meq/ Multivitamins 10 ml/Chromium/ Copper/Manganese/ Seleni/Zn 0.5 ml/ Insulin Human Regular 35 unit/ Total Parenteral Nutrition/Amino Acids/Dextrose/ Fat Emulsion Intravenous 1,400 ml @ 58.333 mls/ hr TPN CONT IV Last administered on 08/07/19at 22:46; Start 08/07/19 at 22:00; Stop 08/08/19 at 21:59; Status DC Sodium Chloride 100 meq/Potassium Chloride 40 meq/ Magnesium Sulfate 20 meq/Calc ium Gluconate 15 meq/ Multivitamins 10 ml/Chromium/ Copper/Manganese/ Seleni/Zn 0.5 ml/ Insulin Human Regular 35 unit/ Total Parenteral Nutrition/Amino Acids/Dextrose/ Fat Emulsion Intravenous 1,400 ml @ 58.333 mls/ hr TPN CONT IV Last administered on 08/08/19at 22:31; Start 08/08/19 at 22:00; Stop 08/09/19 at 21:59; Status DC Fentanyl Citrate (Fentanyl 2ml Vial) 50 mcg PRN Q2HR PRN IVP PAIN Last administered on 08/15/19at 13:32; Start 08/08/19 at 21:00; Stop 08/16/19 at 12:53; Status DC Fentanyl Citrate (Fentanyl 2ml Vial) 25 mcg PRN Q2HR PRN IVP PAIN; Start 08/08/19 at 21:00; Stop 08/16/19 at 12:54; Status DC Enoxaparin Sodium (Lovenox 100mg Syringe) 100 mg Q12HR SQ ; Start 08/09/19 at 21:00; Status UNV Amino Acids/ Glycerin/ Electrolytes 1,000 ml @ 75 mls/hr [id number] IV ; Start 08/08/19 at 21:15; Status UNV Sodium Chloride 1,000 ml @ 1,000 mls/hr Q1H PRN IV hypotension; Start 08/09/19 at 07:56; Stop 08/09/19 at 13:55; Status DC Albumin Human 200 ml @ 200 mls/hr 1X PRN PRN IV Hypotension Last administered on 08/09/19at 08:40; Start 08/09/19 at 08:00; Stop 08/09/19 at 13:59; Status DC Sodium Chloride 1,000 ml @ 400 mls/hr Q2H30M PRN IV PATENCY; Start 08/09/19 at 07:56; Stop 08/09/19 at 19:55; Status DC Info (PHARMACY MONITORING -- do not chart) 1 each PRN DAILY PRN MC SEE COMMENTS; Start 08/09/19 at 08:00; Status UNV Info (PHARMACY MONITORING -- do not chart) 1 each PRN DAILY PRN MC SEE COMMENTS; Start 08/09/19 at 08:00; Status UNV Daptomycin 430 mg/ Sodium Chloride 50 ml @ 100 mls/hr Q24H IV Last administered on 08/09/19at 12:35; Start 08/09/19 at 09:00; Stop 08/09/19 at 12:49; Status DC Sodium Chloride 100 meq/Potassium Chloride 40 meq/ Magnesium Sulfate 20 meq/Calcium Gluconate 15 meq/ Multivitamins 10 ml/Chromium/ Copper/Manganese/ Seleni/Zn 0.5 ml/ Insulin Human Regular 35 unit/ Total Parenteral Nutrition/Amino Acids/Dextrose/ Fat Emulsion Intravenous 1,400 ml @ 58.333 mls/ hr TPN CONT IV Last administered on 08/09/19at 21:26; Start 08/09/19 at 22:00; Stop 08/10/19 at 21:59; Status DC Daptomycin 430 mg/ Sodium Chloride 50 ml @ 100 mls/hr Q48H IV ; Start 08/11/19 at 09:00; Stop 08/10/19 at 11:55; Status DC Sodium Chloride 100 meq/Potassium Chloride 40 meq/ Magnesium Sulfate 20 meq/Calcium Gluconate 15 meq/ Multivitamins 10 ml/Chromium/ Copper/Manganese/ Seleni/Zn 0.5 ml/ Insulin Human Regular 35 unit/ Total Parenteral Nutrition/Amino Acids/Dextrose/ Fat Emulsion Intravenous 1,400 ml @ 58.333 mls/ hr TPN CONT IV Last administered on 08/10/19at 22:27; Start 08/10/19 at 22:00; Stop 08/11/19 at 21:59; Status DC Daptomycin 430 mg/ Sodium Chloride 50 ml @ 100 mls/hr Q24H IV Last administered on 08/12/19at 15:07; Start 08/10/19 at 13:00; Stop 08/13/19 at 13:15; Status DC Sodium Chloride 100 meq/Potassium Chloride 40 meq/ Magnesium Sulfate 20 meq/Calcium Gluconate 10 meq/ Multivitamins 10 ml/Chromium/ Copper/Manganese/ Seleni/Zn 0.5 ml/ Insulin Human Regular 35 unit/ Total Parenteral Nutrition/Amino Acids/Dextrose/ Fat Emulsion Intravenous 1,400 ml @ 58.333 mls/ hr TPN CONT IV Last administered on 08/12/19at 00:06; Start 08/11/19 at 22:00; Stop 08/12/19 at 21:59; Status DC Alteplase, Recombinant (Cathflo For Central Catheter Clearance) 1 mg 1X ONCE INT CAT Last administered on 08/12/19at 11:44; Start 08/12/19 at 10:45; Stop 08/12/19 at 10:46; Status DC Ondansetron HCl (Zofran) 4 mg PRN Q6HRS PRN IV NAUSEA/VOMITING; Start 08/15/19 at 07:00; Stop 08/16/19 at 06:59; Status DC Fentanyl Citrate (Fentanyl 2ml Vial) 25 mcg PRN Q5MIN PRN IV MILD PAIN 1-3; Start 08/15/19 at 07:00; Stop 08/16/19 at 06:59; Status DC Fentanyl Citrate (Fentanyl 2ml Vial) 50 mcg PRN Q5MIN PRN IV MODERATE TO SEVERE PAIN Last administered on 08/15/19at 10:17; Start 08/15/19 at 07:00; Stop 08/16/19 at 06:59; Status DC Ringer's Solution 1,000 ml @ 30 mls/hr Q24H IV ; Start 08/15/19 at 07:00; Stop 08/15/19 at 18:59; Status DC Lidocaine HCl (Xylocaine-Mpf 1% 2ml Vial) 2 ml PRN 1X PRN ID PRIOR TO IV START; Start 08/15/19 at 07:00; Stop 08/16/19 at 06:59; Status DC Prochlorperazine Edisylate (Compazine) 5 mg PACU PRN PRN IV NAUSEA, MRX1; Start 08/15/19 at 07:00; Stop 08/16/19 at 06:59; Status DC Sodium Acetate 50 meq/Potassium Acetate 55 meq/ Magnesium Sulfate 20 meq/Calcium Gluconate 10 meq/ Multivitamins 10 ml/Chromium/ Copper/Manganese/ Seleni/Zn 0.5 ml/ Insulin Human Regular 35 unit/ Total Parenteral Nutrition/Amino Acids/Dextrose/ Fat Emulsion Intravenous 1,400 ml @ 58.333 mls/ hr TPN CONT IV ; Start 08/12/19 at 22:00; Stop 08/12/19 at 14:15; Status DC Sodium Acetate 50 meq/Potassium Acetate 55 meq/ Magnesium Sulfate 20 meq/Calcium Gluconate 10 meq/ Multivitamins 10 ml/Chromium/ Copper/Manganese/ Seleni/Zn 0.5 ml/ Insulin Human Regular 35 unit/ Total Parenteral Nutrition/Amino Acids/Dextrose/ Fat Emulsion Intravenous 1,800 ml @ 75 mls/hr TPN CONT IV Last administered on 08/12/19at 22:38; Start 08/12/19 at 22:00; Stop 08/13/19 at 21:59; Status DC Sodium Chloride 1,000 ml @ 1,000 mls/hr Q1H PRN IV hypotension; Start 08/12/19 at 15:31; Stop 08/12/19 at 21:30; Status DC Diphenhydramine HCl (Benadryl) 25 mg 1X PRN PRN IV ITCHING; Start 08/12/19 at 15:45; Stop 08/13/19 at 15:44; Status DC Diphenhydramine HCl (Benadryl) 25 mg 1X PRN PRN IV ITCHING; Start 08/12/19 at 15:45; Stop 08/13/19 at 15:44; Status DC Sodium Chloride 1,000 ml @ 400 mls/hr Q2H30M PRN IV PATENCY; Start 08/12/19 at 15:31; Stop 08/13/19 at 03:30; Status DC Info (PHARMACY MONITORING -- do not chart) 1 each PRN DAILY PRN MC SEE COMMENTS; Start 08/12/19 at 15:45 Sodium Acetate 50 meq/Potassium Acetate 55 meq/ Magnesium Sulfate 20 meq/Calcium Gluconate 10 meq/ Multivitamins 10 ml/Chromium/ Copper/Manganese/ Seleni/Zn 0.5 ml/ Insulin Human Regular 35 unit/ Total Parenteral Nutrition/Amino Acids/Dextrose/ Fat Emulsion Intravenous 1,800 ml @ 75 mls/hr TPN CONT IV Last administered on 08/13/19at 22:03; Start 08/13/19 at 22:00; Stop 08/14/19 at 21:59; Status DC Daptomycin 430 mg/ Sodium Chloride 50 ml @ 100 mls/hr Q24H IV Last administered on 08/18/19at 13:00; Start 08/13/19 at 13:00; Stop 08/18/19 at 20:58; Status DC Heparin Sodium (Porcine) 1000 unit/Sodium Chloride 1,001 ml @ 1,001 mls/hr 1X ONCE IRR ; Start 08/15/19 at 06:00; Stop 08/15/19 at 06:59; Status DC Potassium Acetate 55 meq/Magnesium Sulfate 20 meq/ Calcium Gluconate 10 meq/ Multivitamins 10 ml/Chromium/ Copper/Manganese/ Seleni/Zn 0.5 ml/ Insulin Human Regular 35 unit/ Total Parenteral Nutrition/Amino Acids/Dextrose/ Fat Emulsion Intravenous 1,920 ml @ 80 mls/hr TPN CONT IV Last administered on 08/14/19at 22:10; Start 08/14/19 at 22:00; Stop 08/15/19 at 21:59; Status DC Dexamethasone Sodium Phosphate (Decadron) 4 mg STK-MED ONCE .ROUTE ; Start 08/15/19 at 10:56; Stop 08/15/19 at 10:57; Status DC Ondansetron HCl (Zofran) 4 mg STK-MED ONCE .ROUTE ; Start 08/15/19 at 10:56; Stop 08/15/19 at 10:57; Status DC Rocuronium [place] (Zemuron) 50 mg STK-MED ONCE .ROUTE ; Start 08/15/19 at 10:56; Stop 08/15/19 at 10:57; Status DC Fentanyl Citrate (Fentanyl 2ml Vial) 100 mcg STK-MED ONCE .ROUTE ; Start 08/15/19 at 10:56; Stop 08/15/19 at 10:57; Status DC Bupivacaine HCl/ Epinephrine Bitart (Sensorcain-Epi 0.5%-1:180497 Mpf) 30 ml STK-MED ONCE .ROUTE Last administered on 08/15/19at 12:01; Start 08/15/19 at 10:58; Stop 08/15/19 at 10:58; Status DC Cellulose (Surgicel Hemostat 2x14) 1 each STK-MED ONCE .ROUTE ; Start 08/15/19 at 10:58; Stop 08/15/19 at 10:59; Status DC Iohexol (Omnipaque 300 Mg/ml) 50 ml STK-MED ONCE .ROUTE ; Start 08/15/19 at 10:58; Stop 08/15/19 at 10:59; Status DC Cellulose (Surgicel Hemostat 4x8) 1 each STK-MED ONCE .ROUTE ; Start 08/15/19 at 10:58; Stop 08/15/19 at 10:59; Status DC Bisacodyl (Dulcolax Supp) 10 mg STK-MED ONCE .ROUTE ; Start 08/15/19 at 10:59; Stop 08/15/19 at 10:59; Status DC Heparin Sodium (Porcine) 1000 unit/Sodium Chloride 1,001 ml @ 1,001 mls/hr 1X ONCE IRR ; Start 08/15/19 at 12:00; Stop 08/15/19 at 12:59; Status DC Propofol 20 ml @ As Directed STK-MED ONCE IV ; Start 08/15/19 at 11:05; Stop 08/15/19 at 11:05; Status DC Sevoflurane (Ultane) 90 ml STK-MED ONCE IH ; Start 08/15/19 at 11:05; Stop 08/15/19 at 11:05; Status DC Sevoflurane (Ultane) 60 ml STK-MED ONCE IH ; Start 08/15/19 at 12:26; Stop 08/15/19 at 12:27; Status DC Propofol 20 ml @ As Directed STK-MED ONCE IV ; Start 08/15/19 at 12:26; Stop 08/15/19 at 12:27; Status DC Phenylephrine HCl (PHENYLEPHRINE in 0.9% NACL PF) 1 mg STK-MED ONCE IV ; Start 08/15/19 at 12:34; Stop 08/15/19 at 12:34; Status DC Heparin Sodium (Porcine) (Heparin Sodium) 5,000 unit Q12HR SQ Last administered on 08/21/19at 21:12; Start 08/15/19 at 21:00 Sodium Chloride (Normal Saline Flush) 3 ml QSHIFT PRN IV AFTER MEDS AND BLOOD DRAWS; Start 08/15/19 at 13:45 Naloxone HCl (Narcan) 0.4 mg PRN Q2MIN PRN IV SEE INSTRUCTIONS; Start 08/15/19 at 13:45 Sodium Chloride 1,000 ml @ 25 mls/hr Q24H IV Last administered on 08/21/19at 19:49; Start 08/15/19 at 13:37 Naloxone HCl (Narcan) 0.4 mg PRN Q2MIN PRN IV SEE INSTRUCTIONS; Start 08/15/19 at 14:30; Status UNV Sodium Chloride 1,000 ml @ 25 mls/hr Q24H IV ; Start 08/15/19 at 14:30; Status UNV Hydromorphone HCl 30 ml @ 0 mls/hr CONT PRN PRN IV PER PROTOCOL Last administered on 08/20/19at 16:08; Start 08/15/19 at 14:30; Stop 08/22/19 at 08:55; Status DC Potassium Acetate 55 meq/Magnesium Sulfate 20 meq/ Calcium Gluconate 10 meq/ Multivitamins 10 ml/Chromium/ Copper/Manganese/ Seleni/Zn 0.5 ml/ Insulin Human Regular 35 unit/ Total Parenteral Nutrition/Amino Acids/Dextrose/ Fat Emulsion Intravenous 1,920 ml @ 80 mls/hr TPN CONT IV Last administered on 08/15/19at 22:01; Start 08/15/19 at 22:00; Stop 08/16/19 at 21:59; Status DC Bumetanide (Bumex) 2 mg [id number] IV Last administered on 08/19/19at 13:50; Start 08/16/19 at 14:00; Stop 08/20/19 at 14:10; Status DC Meropenem 1 gm/ Sodium Chloride 100 ml @ 200 mls/hr Q8HRS IV Last administered on 08/22/19at 06:06; Start 08/16/19 at 14:00 Potassium Acetate 55 meq/Magnesium Sulfate 20 meq/ Calcium Gluconate 10 meq/ Multivitamins 10 ml/Chromium/ Copper/Manganese/ Seleni/Zn 0.5 ml/ Insulin Human Regular 35 unit/ Total Parenteral Nutrition/Amino Acids/Dextrose/ Fat Emulsion Intravenous 1,920 ml @ 80 mls/hr TPN CONT IV Last administered on 08/16/19at 22:02; Start 08/16/19 at 22:00; Stop 08/17/19 at 21:59; Status DC Hydromorphone HCl (Dilaudid Standard [employer]) 12 mg STK-MED ONCE IV ; Start 08/15/19 at 14:35; Stop 08/16/19 at 13:53; Status DC Artificial Tears (Artificial Tears) 1 drop PRN Q15MIN PRN OU DRY EYE Last administered on 08/19/19at 12:34; Start 08/17/19 at 05:30 Hydromorphone HCl (Dilaudid Standard [employer]) 12 mg STK-MED ONCE IV ; Start 08/16/19 at 12:05; Stop 08/17/19 at 09:15; Status DC Potassium Acetate 65 meq/Magnesium Sulfate 20 meq/ Calcium Gluconate 10 meq/ Multivitamins 10 ml/Chromium/ Copper/Manganese/ Seleni/Zn 0.5 ml/ Insulin Human Regular 30 unit/ Total Parenteral Nutrition/Amino Acids/Dextrose/ Fat Emulsion Intravenous 1,920 ml @ 80 mls/hr TPN CONT IV Last administered on 08/17/19at 22:22; Start 08/17/19 at 22:00; Stop 08/18/19 at 21:59; Status DC Cyclobenzaprine HCl (Flexeril) 10 mg PRN Q6HRS PRN PO MUSCLE SPASMS; Start 08/18/19 at 10:45 Potassium Acetate 55 meq/Magnesium Sulfate 20 meq/ Calcium Gluconate 10 meq/ Multivitamins 10 ml/Chromium/ Copper/Manganese/ Seleni/Zn 0.5 ml/ Insulin Human Regular 30 unit/ Total Parenteral Nutrition/Amino Acids/Dextrose/ Fat Emulsion Intravenous 1,920 ml @ 80 mls/hr TPN CONT IV Last administered on 08/19/19at 01:00; Start 08/18/19 at 22:00; Stop 08/19/19 at 21:59; Status DC Magnesium Sulfate 50 ml @ 25 mls/hr 1X ONCE IV Last administered on 08/18/19at 17:18; Start 08/18/19 at 12:45; Stop 08/18/19 at 14:44; Status DC Potassium Chloride/Water 100 ml @ 100 mls/hr 1X ONCE IV Last administered on 08/19/19at 11:27; Start 08/19/19 at 12:00; Stop 08/19/19 at 12:59; Status DC Hydromorphone HCl (Dilaudid Standard [employer]) 12 mg STK-MED ONCE IV ; Start 08/17/19 at 10:50; Stop 08/19/19 at 11:02; Status DC Hydromorphone HCl (Dilaudid Standard [employer]) 12 mg STK-MED ONCE IV ; Start 08/18/19 at 13:47; Stop 08/19/19 at 11:03; Status DC Potassium Acetate 30 meq/Magnesium Sulfate 20 meq/ Calcium Gluconate 10 meq/ Multivitamins 10 ml/Chromium/ Copper/Manganese/ Seleni/Zn 0.5 ml/ Insulin Human Regular 30 unit/ Potassium Chloride 30 meq/ Total Parenteral Nutrition/Amino Acids/Dextrose/ Fat Emulsion Intravenous 1,920 ml @ 80 mls/hr TPN CONT IV Las t administered on 08/19/19at 22:34; Start 08/19/19 at 22:00; Stop 08/20/19 at 21:59; Status DC Potassium Chloride/Water 100 ml @ 100 mls/hr Q1H IV Last administered on 08/20/19at 13:05; Start 08/20/19 at 07:00; Stop 08/20/19 at 10:59; Status DC Magnesium Sulfate 50 ml @ 25 mls/hr 1X ONCE IV Last administered on 08/20/19at 10:34; Start 08/20/19 at 10:30; Stop 08/20/19 at 12:29; Status DC Potassium Chloride 75 meq/ Magnesium Sulfate 20 meq/Calcium Gluconate 10 meq/ Multivitamins 10 ml/Chromium/ Copper/Manganese/ Seleni/Zn 0.5 ml/ Insulin Human Regular 30 unit/ Total Parenteral Nutrition/Amino Acids/Dextrose/ Fat Emulsion Intravenous 1,920 ml @ 80 mls/hr TPN CONT IV Last administered on 08/20/19at 21:51; Start 08/20/19 at 22:00; Stop 08/21/19 at 22:00; Status DC Potassium Chloride 75 meq/ Magnesium Sulfate 20 meq/Calcium Gluconate 10 meq/ Multivitamins 10 ml/Chromium/ Copper/Manganese/ Seleni/Zn 0.5 ml/ Insulin Human Regular 25 unit/ Total Parenteral Nutrition/Amino Acids/Dextrose/ Fat Emulsion Intravenous 1,920 ml @ 80 mls/hr TPN CONT IV Last administered on 08/21/19at 22:04; Start 08/21/19 at 22:00; Stop 08/22/19 at 21:59 Hydromorphone HCl (Dilaudid) 0.4 mg PRN Q4HRS PRN IVP PAIN; Start 08/22/19 at 09:00 Active Scripts Active Reported Bisoprolol Fumarate 5 Mg Tablet 10 Mg PO DAILY Vitals/I & O Vital Sign - Last 24 Hours 5/308/21/19 08/21/19 08/21/19 10:00 12:00 12:00 12:17 Temp 100.0 100.0 Pulse 108 114 Resp 20 44 B/P (MAP) 115/65 (82) 112/56 (74) Pulse Ox 100 100 96 O2 Delivery Ventilator Mechanical Ventilator C-pap 5peep/10PS Ventilator 08/21/19 08/21/19 08/21/19 08/21/19 14:00 15:26 16:00 16:00 Temp 99.0 99.0 Pulse 110 116 Resp 38 40 B/P (MAP) 119/56 (77) 134/74 (94) Pulse Ox 100 95 98 O2 Delivery C-pap 5peep/10PS Ventilator C-pap 5peep/10PS Mechanical Ventilator 08/21/19 08/21/19 08/21/19 08/21/19 17:00 18:00 19:00 20:00 Temp 101.0 101.0 Pulse 122 120 113 123 Resp 38 36 23 32 B/P (MAP) 152/78 (102) 172/74 (106) 157/75 (102) 137/69 (91) Pulse Ox 98 96 96 97 O2 Delivery C-pap 5peep/10PS C-pap 5peep/10PS C-pap 5peep/10PS C-pap 5peep/10PS 08/21/19 08/21/19 08/21/19 08/21/19 20:00 20:23 21:00 21:51 Pulse 119 Resp 28 B/P (MAP) 181/85 (117) Pulse Ox 96 96 96 O2 Delivery Mechanical Ventilator Ventilator C-pap 5peep/10PS Ventilator 08/21/19 08/21/19 08/21/19 08/22/19 22:00 23:00 23:18 00:00 Temp 100.6 100.6 Pulse 113 130 Resp 30 42 B/P (MAP) 140/71 (94) 153/81 (105) Pulse Ox 96 97 96 O2 Delivery C-pap 5peep/10PS C-pap 5peep/10PS Ventilator Mechanical Ventilator 08/22/19 08/22/19 08/22/19 08/22/19 00:00 01:00 01:01 02:00 Temp 100.9 100.3 100.9 100.3 Pulse 118 110 113 Resp 31 30 34 B/P (MAP) 130/69 (89) 117/60 (79) 133/65 (87) Pulse Ox 98 98 96 97 O2 Delivery C-pap 5peep/10PS C-pap 5peep/10PS Ventilator C-pap 5peep/10PS 08/22/19 08/22/19 08/22/19 08/22/19 03:00 04:00 04:00 04:20 Temp 100.3 100.3 Pulse 100 104 Resp 28 32 B/P (MAP) 143/78 (99) 116/60 (78) Pulse Ox 95 98 97 O2 Delivery C-pap 5peep/10PS C-pap 5peep/10PS Mechanical Ventilator Ventilator 08/22/19 08/22/19 08/22/19 05:00 06:00 08:00 Pulse 100 106 Resp 35 41 B/P (MAP) 115/68 (84) 120/63 (82) Pulse Ox 98 96 97 O2 Delivery C-pap 5peep/10PS C-pap 5peep/10PS Ventilator Intake and Output 08/21/19 08/21/19 08/22/19 15:00 23:00 07:00 Intake Total 341 ml 2464.8 ml Output Total 550 ml 1080 ml 725 ml Balance -550 ml -739 ml 1739.8 ml ABI AHN MD August 22, 2019 09:34
--- NOTE | 2019-08-22 10:04 | PDOC ---
Infectious Disease Note Subjective Subjective Uncomfortable in abd Feels distended on trach with vent Discussed with RN Vital Sign Vital Signs Vital Signs Date Time Temp Pulse Resp B/P (MAP) Pulse Ox O2 Delivery O2 Flow Rate FiO2 08/22/19 08:00 97 Ventilator 08/22/19 06:00 106 41 120/63 (82) 08/22/19 04:00 100.3 100.3 Physical Exam PHYSICAL EXAM GENERAL: Propped up in bed, Alert. weak appearing but not toxic HEENT: Pupils equal, + NGT, oral cavity dry NECK: Trach/vent LUNGS: rhonchi HEART: S1, S2, regular ABDOMEN: Distended, hypoactive BS, drain placement (08/14 - serous fluid) : Lind (08/01) EXTREMITIES: Generalized edema, no cyanosis, SCDs bilaterally DERMATOLOGIC: Warm and dry. No generalized rash. CENTRAL NERVOUS SYSTEM: Extremely weak, mouthing words to simple questions PICC line in place August 18, 2019 clean HDC has been removed LIJ removed Labs Lab Laboratory Tests Test 08/21/19 12:47 08/21/19 16:09 08/21/19 17:57 08/22/19 06:10 Glucose (Fingerstick) 126 mg/dL (70-99) 148 mg/dL (70-99) O2 Saturation 93 % (92-99) Arterial Blood pH 7.47 (7.35-7.45) Arterial Blood pCO2 at Patient Temp 49 mmHg (35-46) Arterial Blood pO2 at Patient Temp 73 mmHg (75-108) Arterial Blood HCO3 35 mmol/L (21-28) Arterial Blood Base Excess 10 mmol/L (-3-3) Oxyhemoglobin 92.7 % Methemoglobin 0.4 % (0.0-1.9) Carbon Monoxide, Quantitative 0.3 % (0.0-1.9) FiO2 30 Sodium Level 154 mmol/L (136-145) Potassium Level 4.0 mmol/L (3.5-5.1) Chloride Level 114 mmol/L (98-107) Carbon Dioxide Level 33 mmol/L (21-32) Anion Gap 7 (6-14) Blood Urea Nitrogen 45 mg/dL (7-20) Creatinine 0.9 mg/dL (0.6-1.0) Estimated GFR (Cockcroft-Gault) 66.5 BUN/Creatinine Ratio 50 (6-20) Glucose Level 164 mg/dL (70-99) Calcium Level 8.8 mg/dL (8.5-10.1) Phosphorus Level 3.4 mg/dL (2.6-4.7) Magnesium Level 2.2 mg/dL (1.8-2.4) Total Bilirubin 0.5 mg/dL (0.2-1.0) Aspartate Amino Transf (AST/SGOT) 39 U/L (15-37) Alanine Aminotransferase (ALT/SGPT) 36 U/L (14-59) Alkaline Phosphatase 127 U/L (46-116) Total Protein 5.6 g/dL (6.4-8.2) Albumin 1.8 g/dL (3.4-5.0) Albumin/Globulin Ratio 0.5 (1.0-1.7) Triglycerides Level 174 mg/dL (0-150) Test 08/22/19 06:15 Glucose (Fingerstick) 153 mg/dL (70-99) Micro 08/14 Operative Note: After obtaining informed consent, patient was taken to OR, induced under GETA and prepped in the usual fashion. 5 mm port placed umbilical and right mid abdomen, all under laparoscopic guidance. Large amount of ascites encountered and aspirated off. Fluid was clear with some whitish debris. Viscera was completely locked in with obliteration of all planes, preventing any significant exploration. Copious irrigation. Given patient's overall clinical improvement, favor against open procedure and attempt at cholecystectomy and/or necrosectomy, given high risk of complications. Cholecystectomy will need to be performed, but favor waiting 3 months. 19 KAYLIN drain placed and secured with 3 0 nylon. Skin repaired with 4 0 monocryl. Dressing placed. Patient tolerated procedure well and sent to PACU in stable condition. All counts correct. Wound class is 4. CT Chest Abd/pelv 08/01 CT CHEST: CT scan the chest was done without contrast. There is a tracheostomy tube in good position. There are large bilateral pleural effusions. There is atelectasis in both lung bases. There is no mediastinal adenopathy. Right arm PICC line extends to the superior vena cava. There is a temporary dialysis catheter extending to the vena cava near the atrium. IMPRESSION: 1. Large bilateral effusions. 2. Atelectasis of both lungs. End impression CT abdomen pelvis CT scan the abdomen pelvis was done following CT chest with contrast. NG tube extends into the stomach. Spleen is normal. There is no mass or hydronephrosis in the kidneys. There is a gallstone the gallbladder. A focal liver lesion is not identified. There is diffuse necrosis of the pancreas. There is peripancreatic fluid. The pattern is similar to the recent study. There is fluid in the paracolic gutters. There is retroperitoneal fluid surrounding the kidneys. Ascites extends into the pelvis. Ascites is similar to the prior study. There is no bowel obstruction. There is no free air. IMPRESSION: 1. Diffuse pancreatic necrosis. 2. A extensive retroperitoneal fluid and inflammation. 3. Cholelithiasis. 4. Moderate to large volume ascites with little change. CT A/P, 07/27 IMPRESSION: 1. Increased ascites. 2. 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 Cholelithiasis with thickening of the gallbladder wall. 4. Persistent pleural effusions and atelectasis in the lung bases. Objective Assessment Fever - up today intermittent could be from underlying pancreatitis Abd distention Acute pancreatitis with persistent necrosis CT a/p 07/27 Increased ascites. 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 Leucocytosis improving JUANA,Hyperkalemia, Metabolic acidosis off dialysis Acute hypoxic resp failure ,bilateral pleural effusion and atelectasis hypocalcemia Prediabetes HTN s/p trach Plan Plan of Care Abd U/S - may need paracentesis Blood cult times 2 Add Micafungin with yeast from 08/14 abd cult Dose Dapto CBC this am and in am cont merrem (07/26), Electrolytes per primary Anemia per primary Follow-up Intra-Op cultures and lab Maintain aspiration precaution PT and OT as tolerated Continue supportive care D/w nursing WILLY BARAKAT MD August 22, 2019 10:04
--- NOTE | 2019-08-22 10:44 | PDOC ---
Subjective: Subjective: Abdomen is more painful ("a little"), asks for mouth swabs. Objective: Objective: D/w nurse - vomiting yesterday, complaints of constant nausea, on vent w/ low grade fever, wonders about NGT replacement. Strict NPO (no swabs), concern for aspiration. Since I have seen, abd US ordered re: ascites. Vital Signs: Vital Signs Date Time Temp Pulse Resp B/P (MAP) Pulse Ox O2 Delivery O2 Flow Rate FiO2 08/22/19 08:00 97 Ventilator 08/22/19 06:00 106 41 120/63 (82) 08/22/19 04:00 100.3 100.3 Labs: Laboratory Tests Test 08/21/19 12:47 08/21/19 16:09 08/21/19 17:57 08/22/19 06:10 Glucose (Fingerstick) 126 mg/dL 148 mg/dL O2 Saturation 93 % Arterial Blood pH 7.47 Arterial Blood pCO2 at Patient Temp 49 mmHg Arterial Blood pO2 at Patient Temp 73 mmHg Arterial Blood HCO3 35 mmol/L Arterial Blood Base Excess 10 mmol/L Oxyhemoglobin 92.7 % Methemoglobin 0.4 % Carbon Monoxide, Quantitative 0.3 % FiO2 30 Sodium Level 154 mmol/L Potassium Level 4.0 mmol/L Chloride Level 114 mmol/L Carbon Dioxide Level 33 mmol/L Anion Gap 7 Blood Urea Nitrogen 45 mg/dL Creatinine 0.9 mg/dL Estimated GFR (Cockcroft-Gault) 66.5 BUN/Creatinine Ratio 50 Glucose Level 164 mg/dL Calcium Level 8.8 mg/dL Phosphorus Level 3.4 mg/dL Magnesium Level 2.2 mg/dL Total Bilirubin 0.5 mg/dL Aspartate Amino Transf (AST/SGOT) 39 U/L Alanine Aminotransferase (ALT/SGPT) 36 U/L Alkaline Phosphatase 127 U/L Total Protein 5.6 g/dL Albumin 1.8 g/dL Albumin/Globulin Ratio 0.5 Triglycerides Level 174 mg/dL Test 08/22/19 06:15 Glucose (Fingerstick) 153 mg/dL COMMENTS: CATH TIP CENTRAL LINE Procedure Result AEROBIC CULTURE Preliminary Preliminary report AEROBIC RES 1 Preliminary Comment No growth in 36 - 48 hours. Performed at: [facility], [place], [place] [id number] Training Intern: JEMAL Herrmann MD, Phone: [phone] GRAM STAIN Final Final report GRAM STAIN RESULT 1 Final Comment No white blood cells seen. GRAM STAIN RESULT 2 Final No organisms seen BLOOD CULTURE Preliminary NO GROWTH AFTER 4 DAYS COMMENTS: ASCITES Procedure Result ANAEROBIC-AEROBIC CULTURE Final Final report ANAEROBIC RES 1 Final Comment No anaerobic growth in 72 hours. AEROBIC CULT Final Final report AEROBIC RES 1 Final Yeast isolated. 1+ Request for further identification must be made within 1 week. GRAM STAIN Final Final report GRAM STAIN RES 1 Final Comment No white blood cells seen. GRAM STAIN RES 2 Final No organisms seen PE: GEN: NAD LUNGS: trach/vent, diminished HEART: mildly tachycardic ABD: distended, quiet, tender NEURO/PSYCH: A & O 3 A/P: Gallstone pancreatitis, MOSF N/v, abd pain -- Reviewed w/ Dr. Weber - seems NG might be a good idea. Hemodynamically unstable?: No Is patient in severe pain?: Yes Is NPO status required?: Yes CYNDEE FALCON August 22, 2019 10:44
[2019-08-22] MEDS: PANTOPRAZOLE IV PUSH 40 MG VIAL. IVP SCH (10:48)
[2019-08-22] MEDS: MICAFUNGIN 100 MG in IV DEXTROSE 5% 100ML 100 ML IV SCH (10:48)
[2019-08-22] MEDS: HEPARIN for SUB-Q USE 5,000 UNIT/ML VIAL. SQ SCH ×2 (10:52→21:23)
[2019-08-22 10:53] LABS: BASO % 0 % (0-3); EOS # 0.1 x10^3/uL (0.0-0.7); EOS % 2 % (0-3); HEMATOCRIT 22.7 % (36.0-47.0); HEMOGLOBIN 7.1 g/dL (12.0-15.5); LYMPH # 1.9 x10^3/uL (1.0-4.8); LYMPH % 19 % (24-48); MEAN CORPUSCULAR HEMOGLOBIN 29 pg (25-35); MEAN CORPUSCULAR HGB CONC 31 g/dL (31-37); MEAN CORPUSCULAR VOLUME 91 fL (79-100); MONO # 0.5 x10^3/uL (0.0-1.1); MONO % 5 % (0-9); NEUT # 7.3 x10^3/uL (1.8-7.7); NEUT % 74 % (31-73); PLATELET COUNT 458 x10^3/uL (140-400); RED BLOOD COUNT 2.49 x10^6/uL (3.50-5.40); RED CELL DISTRIBUTION WIDTH 18.9 % (11.5-14.5); WHITE BLOOD COUNT 9.9 x10^3/uL (4.0-11.0)
--- NOTE | 2019-08-22 10:55 | RAD ---
EXAM: Abdomen sonogram. HISTORY: Fever and pain. Ascites check. TECHNIQUE: Sonographic imaging of the abdomen was performed. COMPARISON: CT dated 08/10/2019. FINDINGS: There is a small amount of complex fluid within the right and lower quadrants. The larger fluid collection is within the left lower quadrant and measures approximately 12 cm in maximum dimension. IMPRESSION: Complex fluid collections within the right and lower quadrants. The abdominal visceral and vascular structures are not formally assessed on this exam. Electronically signed by: Sherlyn Martinez MD (08/22/2019 10:52 AM) [id number]
[2019-08-22] MEDS: DAPTOMYCIN IV SCH (11:59)
[2019-08-22] MEDS: NORMAL SALINE IV SCH (11:59)
[2019-08-22] MEDS: IV NORMAL SALINE 1000ML BAG 1,000 ML IV SCH (13:37)
[2019-08-22] MEDS: TPN PER PHARMACY MC PRN ×2 (13:42→13:52)
--- NOTE | 2019-08-22 14:10 | NUR ---
Pharmacy TPN Dosing Note S: SCOTT AVILA is a 48 year old F Currently receiving Central Continuous TPN started 07/06/19 B:Pertinent PMH: Necrotizing pancreatitis Height: 5 feet, 8 inches Weight: 106.3 kg Current diet: NPO LABS: Sodium: 154 Potassium: 4.0 Chloride: 114 Calcium: 8.8 Corrected Calcium: 10.56 Magnesium: 2.2 CO2: 33 SCr: 1.0 Glucose: 164 Albumin: 1.8 AST: 21 ALT: 11 TPN FORMULA: TPN TYPE: Central Continuous AMINO ACIDS: 90 gm DEXTROSE: 225 gm LIPIDS: 30 gm SODIUM CHLORIDE: - mEq SODIUM ACETATE: - mEq SODIUM PHOSPHATE: - mmol POTASSIUM CHLORIDE: 75 mEq POTASSIUM ACETATE: - mEq POTASSIUM PHOSPHATE: - mmol MAGNESIUM: 15 mEq CALCIUM: 8 mEq INSULIN: 25 units MULTIPLE VITAMIN: 10 ml TRACE ELEMENTS: 0.5 ml(s) TPN PLAN: DECREASE MAGSO4 TO 15 MEQ, CALCIUM GLUCONTATE TO 8 MEQ. R: Continue TPN at same rate Will monitor electrolytes, glucose, and tolerance to TPN. KRISTIAN APODACA [facility], 08/22/19 [id number]
[2019-08-22] MEDS ORDERED: HALOPERIDOL LACTATE 5 MG/ML VIAL. IVP ONE (14:30)
--- NOTE | 2019-08-22 15:36 | NUR ---
SS following up with discharge planning. SS discussed with pt RN. Pt's daughter, Norma, has appointment with [facility] on 08/25/2019 at 1500 to complete disability packet. Pt is self pay pt. Pt has trach shield, TPN, and IV antibiotic. Pt able to sit up in chair. PT/OT working with pt. SS will continue to follow for discharge planning.
--- NOTE | 2019-08-22 16:41 | PDOC ---
SURGICAL PROGRESS NOTE Subjective Pt out of room will f/u in AM. Vital Signs Vital Signs Date Time Temp Pulse Resp B/P (MAP) Pulse Ox O2 Delivery O2 Flow Rate FiO2 08/22/19 15:40 99 Tracheal Collar 10.0 08/22/19 15:00 118 25 118/97 (104) 08/22/19 12:00 99.4 99.4 I&O Intake and Output 08/22/19 07:00 Intake Total 2805.8 ml Output Total 2455 ml Balance 350.8 ml IV Total 2805.8 ml Output Urine Total 2440 ml Drainage Total 15 ml Labs Laboratory Tests Test 08/20/19 18:06 08/21/19 00:03 08/21/19 05:25 08/21/19 05:30 Glucose (Fingerstick) 135 mg/dL (70-99) 122 mg/dL (70-99) 113 mg/dL (70-99) White Blood Count 9.7 x10^3/uL (4.0-11.0) Red Blood Count 2.44 x10^6/uL (3.50-5.40) Hemoglobin 7.1 g/dL (12.0-15.5) Hematocrit 22.8 % (36.0-47.0) Mean Corpuscular Volume 93 fL (79-100) Mean Corpuscular Hemoglobin 29 pg (25-35) Mean Corpuscular Hemoglobin Concent 31 g/dL (31-37) Red Cell Distribution Width 18.1 % (11.5-14.5) Platelet Count 408 x10^3/uL (140-400) Neutrophils (%) (Auto) 79 % (31-73) Lymphocytes (%) (Auto) 14 % (24-48) Monocytes (%) (Auto) 5 % (0-9) Eosinophils (%) (Auto) 2 % (0-3) Basophils (%) (Auto) 0 % (0-3) Neutrophils # (Auto) 7.7 x10^3/uL (1.8-7.7) Lymphocytes # (Auto) 1.4 x10^3/uL (1.0-4.8) Monocytes # (Auto) 0.5 x10^3/uL (0.0-1.1) Eosinophils # (Auto) 0.2 x10^3/uL (0.0-0.7) Basophils # (Auto) 0.0 x10^3/uL (0.0-0.2) Sodium Level 153 mmol/L (136-145) Potassium Level 4.3 mmol/L (3.5-5.1) Chloride Level 114 mmol/L (98-107) Carbon Dioxide Level 38 mmol/L (21-32) Anion Gap 1 (6-14) Blood Urea Nitrogen 47 mg/dL (7-20) Creatinine 1.0 mg/dL (0.6-1.0) Estimated GFR (Cockcroft-Gault) 58.9 Glucose Level 125 mg/dL (70-99) Calcium Level 8.7 mg/dL (8.5-10.1) Test 08/21/19 07:55 08/21/19 12:47 08/21/19 16:09 08/21/19 17:57 O2 Saturation 97 % (92-99) 93 % (92-99) Arterial Blood pH 7.27 (7.35-7.45) 7.47 (7.35-7.45) Arterial Blood pCO2 at Patient Temp 75 mmHg (35-46) 49 mmHg (35-46) Arterial Blood pO2 at Patient Temp 123 mmHg (75-108) 73 mmHg (75-108) Arterial Blood HCO3 34 mmol/L (21-28) 35 mmol/L (21-28) Arterial Blood Base Excess 6 mmol/L (-3-3) 10 mmol/L (-3-3) Oxyhemoglobin 96.8 % 92.7 % Methemoglobin 0.5 % (0.0-1.9) 0.4 % (0.0-1.9) Carbon Monoxide, Quantitative 0.1 % (0.0-1.9) 0.3 % (0.0-1.9) FiO2 40 30 Glucose (Fingerstick) 126 mg/dL (70-99) 148 mg/dL (70-99) Test 08/22/19 06:10 08/22/19 06:15 08/22/19 10:30 08/22/19 11:58 Sodium Level 154 mmol/L (136-145) Potassium Level 4.0 mmol/L (3.5-5.1) Chloride Level 114 mmol/L (98-107) Carbon Dioxide Level 33 mmol/L (21-32) Anion Gap 7 (6-14) Blood Urea Nitrogen 45 mg/dL (7-20) Creatinine 0.9 mg/dL (0.6-1.0) Estimated GFR (Cockcroft-Gault) 66.5 BUN/Creatinine Ratio 50 (6-20) Glucose Level 164 mg/dL (70-99) Calcium Level 8.8 mg/dL (8.5-10.1) Phosphorus Level 3.4 mg/dL (2.6-4.7) Magnesium Level 2.2 mg/dL (1.8-2.4) Total Bilirubin 0.5 mg/dL (0.2-1.0) Aspartate Amino Transf (AST/SGOT) 39 U/L (15-37) Alanine Aminotransferase (ALT/SGPT) 36 U/L (14-59) Alkaline Phosphatase 127 U/L (46-116) Total Protein 5.6 g/dL (6.4-8.2) Albumin 1.8 g/dL (3.4-5.0) Albumin/Globulin Ratio 0.5 (1.0-1.7) Triglycerides Level 174 mg/dL (0-150) Glucose (Fingerstick) 153 mg/dL (70-99) 182 mg/dL (70-99) White Blood Count 9.9 x10^3/uL (4.0-11.0) Red Blood Count 2.49 x10^6/uL (3.50-5.40) Hemoglobin 7.1 g/dL (12.0-15.5) Hematocrit 22.7 % (36.0-47.0) Mean Corpuscular Volume 91 fL (79-100) Mean Corpuscular Hemoglobin 29 pg (25-35) Mean Corpuscular Hemoglobin Concent 31 g/dL (31-37) Red Cell Distribution Width 18.9 % (11.5-14.5) Platelet Count 458 x10^3/uL (140-400) Neutrophils (%) (Auto) 74 % (31-73) Lymphocytes (%) (Auto) 19 % (24-48) Monocytes (%) (Auto) 5 % (0-9) Eosinophils (%) (Auto) 2 % (0-3) Basophils (%) (Auto) 0 % (0-3) Neutrophils # (Auto) 7.3 x10^3/uL (1.8-7.7) Lymphocytes # (Auto) 1.9 x10^3/uL (1.0-4.8) Monocytes # (Auto) 0.5 x10^3/uL (0.0-1.1) Eosinophils # (Auto) 0.1 x10^3/uL (0.0-0.7) Basophils # (Auto) 0.0 x10^3/uL (0.0-0.2) Laboratory Tests Test 08/21/19 17:57 08/22/19 06:10 08/22/19 06:15 08/22/19 10:30 Glucose (Fingerstick) 148 mg/dL (70-99) 153 mg/dL (70-99) Sodium Level 154 mmol/L (136-145) Potassium Level 4.0 mmol/L (3.5-5.1) Chloride Level 114 mmol/L (98-107) Carbon Dioxide Level 33 mmol/L (21-32) Anion Gap 7 (6-14) Blood Urea Nitrogen 45 mg/dL (7-20) Creatinine 0.9 mg/dL (0.6-1.0) Estimated GFR (Cockcroft-Gault) 66.5 BUN/Creatinine Ratio 50 (6-20) Glucose Level 164 mg/dL (70-99) Calcium Level 8.8 mg/dL (8.5-10.1) Phosphorus Level 3.4 mg/dL (2.6-4.7) Magnesium Level 2.2 mg/dL (1.8-2.4) Total Bilirubin 0.5 mg/dL (0.2-1.0) Aspartate Amino Transf (AST/SGOT) 39 U/L (15-37) Alanine Aminotransferase (ALT/SGPT) 36 U/L (14-59) Alkaline Phosphatase 127 U/L (46-116) Total Protein 5.6 g/dL (6.4-8.2) Albumin 1.8 g/dL (3.4-5.0) Albumin/Globulin Ratio 0.5 (1.0-1.7) Triglycerides Level 174 mg/dL (0-150) White Blood Count 9.9 x10^3/uL (4.0-11.0) Red Blood Count 2.49 x10^6/uL (3.50-5.40) Hemoglobin 7.1 g/dL (12.0-15.5) Hematocrit 22.7 % (36.0-47.0) Mean Corpuscular Volume 91 fL (79-100) Mean Corpuscular Hemoglobin 29 pg (25-35) Mean Corpuscular Hemoglobin Concent 31 g/dL (31-37) Red Cell Distribution Width 18.9 % (11.5-14.5) Platelet Count 458 x10^3/uL (140-400) Neutrophils (%) (Auto) 74 % (31-73) Lymphocytes (%) (Auto) 19 % (24-48) Monocytes (%) (Auto) 5 % (0-9) Eosinophils (%) (Auto) 2 % (0-3) Basophils (%) (Auto) 0 % (0-3) Neutrophils # (Auto) 7.3 x10^3/uL (1.8-7.7) Lymphocytes # (Auto) 1.9 x10^3/uL (1.0-4.8) Monocytes # (Auto) 0.5 x10^3/uL (0.0-1.1) Eosinophils # (Auto) 0.1 x10^3/uL (0.0-0.7) Basophils # (Auto) 0.0 x10^3/uL (0.0-0.2) Test 08/22/19 11:58 Glucose (Fingerstick) 182 mg/dL (70-99) Problem List Problems Medical Problems: (1) Acute pancreatitis Status: Acute (2) Cholelithiasis Status: Acute DAVON SIMMS MD August 22, 2019 16:40
--- NOTE | 2019-08-22 16:58 | RAD ---
EXAM: CT Abdomen and Pelvis without IV contrast INDICATION: Follow-up necrotizing pancreatitis TECHNIQUE: Multi-detector row CT images were acquired from the lung bases through the abdomen and pelvis without the use of IV contrast. Sagittal and coronal images were acquired from the transaxial data. All CT scans performed at this facility utilize dose optimization techniques as appropriate to the exam, including the following: Automated exposure control and adjustment of the mA and/or KV according to patient size (this includes techniques or standardized protocols for targeted exams where dose is indication/reason for exam). ORAL CONTRAST: None COMPARISON: Abdomen and pelvis CT without IV contrast of August 10, 2019 FINDINGS: The absence of IV contrast limits evaluation of soft tissue pathology. LOWER CHEST: Large bilateral pleural effusions with associated bibasilar atelectasis. Partially imaged central venous catheter with the tip near the cavoatrial junction. Bilateral breast prostheses. Coronary calcifications. LIVER: Unremarkable BILIARY SYSTEM: Gallbladder contains a gallstone and is partly contracted. Bile ducts are not dilated. PANCREAS: Obscured by large peripancreatic fluid collection with internal debris which has increased in size in the interval, now measuring 24 x 8 cm on axial image 34 series 2 this exam compared with 17 x 6 cm at the comparable level on the prior examination (image 43 of series 2 that exam). SPLEEN: Unremarkable ADRENALS: Unremarkable KIDNEYS & URETERS: Developing right great 2 hydronephrosis. No radiopaque stones. BLADDER: Obscured by large ascites REPRODUCTIVE ORGANS: Unremarkable GASTROINTESTINAL: No findings of bowel obstruction, perforation or acute inflammation. Bowel contents show increased density and large bowel that could reflect dilute blood or residual of previous enteric contrast ingestion. The appendix is normal. MESENTERY/PERITONEUM/RETROPERITONEUM: Trace drain has been placed within the ventral abdominal wall, with successful evacuation near completion of the previously evident ventral abdominal wall fluid collection. There remains a large, irregular fluid collection in the mesentery and right extraperitoneal soft tissues superficial to the right psoas muscle that appears slightly larger in the interval there is also slightly greater extraperitoneal fluid between the peritoneum and the left flank musculature. VASCULAR: Unremarkable LYMPH NODES: No adenopathy OSSEOUS & SOFT TISSUES: Unremarkable IMPRESSION: 1. Findings consistent with sequelae of severe acute pancreatitis with enlarging peripancreatic and intra-abdominal fluid collections as described 2. Interval placement of a drain in the ventral abdominal wall with and partial evacuation of the ventral extraperitoneal fluid collection previously evident. Electronically signed by: Charan Dove MD (08/22/2019 4:54 PM) [id number]
--- NOTE | 2019-08-22 18:36 | PDOC ---
PROGRESS NOTES Chief Complaint Chief Complaint Acute hypoxic Respiratory failure requiring mechanical ventilation (on vent since 07/10) Tracheostomy bilateral pleural effusions/pulm edema Sepsis Severe Acute gallstone pancreatitis (not a surgical candidate at this time) with necrosis Acute kidney failure now requiring dialysis Salpingitis Gallstones (Calculus of gallbladder with acute cholecystitis without obstruction) HTN Leukocytosis Hypoxia Uterine fibroid Intractable pain Intractable nausea Covid 19 negative. Acute on chronic anemia EEG: No seizure activity ESRD on HD Hyperglycemia Plan: supportive measures grim prognosis History of Present Illness History of Present Illness Ms Diaz is a 48yo F w/ PMHx HTN, prediabetes who presented to the emergency room with complaints of abdominal pain on 07/04/2019. Found with Lipase 03557, AST 401, ALT 249, Bilirubin 1.4. CT abdomen confirms pancreatic inflammation, peripancreatic fluid and inflammatory changes around the pancreas consistent with pancreatitis. Cholelithiasis and 1.4cm uterine fibroid as well as possible left salpingitis. Admitted for further care GI, General surgery, ID, Pulm consulted. 07/04: PICC placed per IR. Renal US negative. Started on levophed. Repeat CT abdomen w/ necrosis; 07/05: Dialysis catheter per nephrology; 07/06: On BiPAP; 07/07: BiPAP, dialysis; 07/08: Overnight Tmax 101.7 , still on BiPAP FiO2 40%, still on low dose Levophed gtt, TPN initiated. On dialysis 07/24: Tracheostomy; 07/30: S/p tracheostomy on vent spontaneous respirations with 5 of pressure support 35% FiO2, rectal tube and a Lind, off pressors; 08/01:Still on vent via trach. Removed PICC and CVC LIJ and replaced. CT chest/abd/pelvis with bilateral pleural effusion and ascites. 08/02: Renal function stable. Still on vent. More interactive today. Miming wish for food. Plan discussed for thoracentesis/paracentesis with daughters today. They were under impression patient was doing worse due to a miscommunication which has been clarified over the phone. 4.3L removed. 08/04: Febrile overnight 101.8F. More interactive, still on vent. Asking for ice by miming; 08/05: Afebrile overnight. TMax last 24 hours 100.6F. Hb 7.1. Interactive when awake. 08/09: Transfusion 1u PRBC (6U total since admit) 08/10-08/13: TPN and precedex, vent. 08/14: Tmax 101F overnight. Hb 8.2. HD cath out since 08/11. Alert. On vent SIMV 35% FiO2. Surgery: ex-lap, no ronel or pancreatic necrosectomy 2/2 profound inflammation. 08/15: Seen POD #1. Afebrile overnight. BUN 62. CBC WNL today.Remains on vent via trach, TPN. Able to point today and indicate she wishes her daughters and Jamaal to be involved in her care. 08/16: Hb 7.4, Na 151. Remains on vent via trach, TPN. off HD for now. Not tolerating trach shield well. 08/17: Negative US for UE DVT. More relaxed today. Has some increase in UOP. Tolerating vent well. She is requesting to eat and drink via writing. T max 100F 24 hours ago, but 101F at 1200. Right PICC placed. Speaking valve for half the day in [facility] 08/18: Na 153 today. Good UOP. Tmax 101F at 1200 on 08/17. She becomes a bit anxious and did not sleep much last night, wishes to try to sleep this morning 08/19: Able to speak well with speaking valve today. Na 153, K2.9, Mg 1.8, Cr 1. 100.4F axillary temp overnight. Asking for food. 08/20: Afebrile overnight. ABG with pH 7.27/75/123. Hb 7.1. Na 153. BRICKMASON settings decreased 08/21: No acute events reported overnight, case discussed with nursing staff patient in no acute distress no complaints during my visit Plan: Cont vent weaning. will need BIPAP Decrease opioids, may need to d/c BRICKMASON. Would favor long active basal fentanyl patch 12.5mg and Q3hr prn dilaudid 1mg, will d/w general surgery. Trach shield and speaking valve during day when awake. Would recommend ABG after 4 hours to r/o CO2 retention, however and still vent overnight Monitor fever curve, no obvious source of infection, possibly some aspiration events, atelectasis Vitals Vitals Vital Signs Date Time Temp Pulse Resp B/P (MAP) Pulse Ox O2 Delivery O2 Flow Rate FiO2 5/4/20 18:00 115 32 140/67 (91) 100 Tracheal Collar 10.0 08/22/19 16:00 97.0 97.0 Physical Exam Physical Exam GENERAL: Propped up in bed, Alert. weak appearing but not toxic HEENT: Pupils equal, + NGT, oral cavity dry NECK: Trach/vent LUNGS: rhonchi HEART: S1, S2, regular ABDOMEN: Distended, hypoactive BS, drain placement (08/14 - serous fluid) : Lind (08/01) EXTREMITIES: Generalized edema, no cyanosis, SCDs bilaterally DERMATOLOGIC: Warm and dry. No generalized rash. CENTRAL NERVOUS SYSTEM: Extremely weak, mouthing words to simple questions PICC line in place August 18, 2019 clean HDC has been removed LIJ removed General: Alert, Cooperative, mild distress Heart: Regular rate, No murmurs Lungs: Crackles Abdomen: Normal bowel sounds, Soft, Other (Mildly tender in epigastrium no peritoneal signs) Extremities: No edema Skin: Other (mottling noted to extremities ) Labs LABS Laboratory Tests Test 08/22/19 06:10 08/22/19 06:15 08/22/19 10:30 08/22/19 11:58 Sodium Level 154 mmol/L (136-145) Potassium Level 4.0 mmol/L (3.5-5.1) Chloride Level 114 mmol/L (98-107) Carbon Dioxide Level 33 mmol/L (21-32) Anion Gap 7 (6-14) Blood Urea Nitrogen 45 mg/dL (7-20) Creatinine 0.9 mg/dL (0.6-1.0) Estimated GFR (Cockcroft-Gault) 66.5 BUN/Creatinine Ratio 50 (6-20) Glucose Level 164 mg/dL (70-99) Calcium Level 8.8 mg/dL (8.5-10.1) Phosphorus Level 3.4 mg/dL (2.6-4.7) Magnesium Level 2.2 mg/dL (1.8-2.4) Total Bilirubin 0.5 mg/dL (0.2-1.0) Aspartate Amino Transf (AST/SGOT) 39 U/L (15-37) Alanine Aminotransferase (ALT/SGPT) 36 U/L (14-59) Alkaline Phosphatase 127 U/L (46-116) Total Protein 5.6 g/dL (6.4-8.2) Albumin 1.8 g/dL (3.4-5.0) Albumin/Globulin Ratio 0.5 (1.0-1.7) Triglycerides Level 174 mg/dL (0-150) Glucose (Fingerstick) 153 mg/dL (70-99) 182 mg/dL (70-99) White Blood Count 9.9 x10^3/uL (4.0-11.0) Red Blood Count 2.49 x10^6/uL (3.50-5.40) Hemoglobin 7.1 g/dL (12.0-15.5) Hematocrit 22.7 % (36.0-47.0) Mean Corpuscular Volume 91 fL (79-100) Mean Corpuscular Hemoglobin 29 pg (25-35) Mean Corpuscular Hemoglobin Concent 31 g/dL (31-37) Red Cell Distribution Width 18.9 % (11.5-14.5) Platelet Count 458 x10^3/uL (140-400) Neutrophils (%) (Auto) 74 % (31-73) Lymphocytes (%) (Auto) 19 % (24-48) Monocytes (%) (Auto) 5 % (0-9) Eosinophils (%) (Auto) 2 % (0-3) Basophils (%) (Auto) 0 % (0-3) Neutrophils # (Auto) 7.3 x10^3/uL (1.8-7.7) Lymphocytes # (Auto) 1.9 x10^3/uL (1.0-4.8) Monocytes # (Auto) 0.5 x10^3/uL (0.0-1.1) Eosinophils # (Auto) 0.1 x10^3/uL (0.0-0.7) Basophils # (Auto) 0.0 x10^3/uL (0.0-0.2) Test 08/22/19 18:17 Glucose (Fingerstick) 145 mg/dL (70-99) Assessment and Plan Assessmemt and Plan Problems Medical Problems: (1) Acute pancreatitis Status: Acute (2) Cholelithiasis Status: Acute Comment Review of Relevant I have reviewed the following items kolby (where applicable) has been applied. Labs Laboratory Tests Test 5/3/20 00:03 08/21/19 05:25 08/21/19 05:30 08/21/19 07:55 Glucose (Fingerstick) 122 mg/dL (70-99) 113 mg/dL (70-99) White Blood Count 9.7 x10^3/uL (4.0-11.0) Red Blood Count 2.44 x10^6/uL (3.50-5.40) Hemoglobin 7.1 g/dL (12.0-15.5) Hematocrit 22.8 % (36.0-47.0) Mean Corpuscular Volume 93 fL (79-100) Mean Corpuscular Hemoglobin 29 pg (25-35) Mean Corpuscular Hemoglobin Concent 31 g/dL (31-37) Red Cell Distribution Width 18.1 % (11.5-14.5) Platelet Count 408 x10^3/uL (140-400) Neutrophils (%) (Auto) 79 % (31-73) Lymphocytes (%) (Auto) 14 % (24-48) Monocytes (%) (Auto) 5 % (0-9) Eosinophils (%) (Auto) 2 % (0-3) Basophils (%) (Auto) 0 % (0-3) Neutrophils # (Auto) 7.7 x10^3/uL (1.8-7.7) Lymphocytes # (Auto) 1.4 x10^3/uL (1.0-4.8) Monocytes # (Auto) 0.5 x10^3/uL (0.0-1.1) Eosinophils # (Auto) 0.2 x10^3/uL (0.0-0.7) Basophils # (Auto) 0.0 x10^3/uL (0.0-0.2) Sodium Level 153 mmol/L (136-145) Potassium Level 4.3 mmol/L (3.5-5.1) Chloride Level 114 mmol/L (98-107) Carbon Dioxide Level 38 mmol/L (21-32) Anion Gap 1 (6-14) Blood Urea Nitrogen 47 mg/dL (7-20) Creatinine 1.0 mg/dL (0.6-1.0) Estimated GFR (Cockcroft-Gault) 58.9 Glucose Level 125 mg/dL (70-99) Calcium Level 8.7 mg/dL (8.5-10.1) O2 Saturation 97 % (92-99) Arterial Blood pH 7.27 (7.35-7.45) Arterial Blood pCO2 at Patient Temp 75 mmHg (35-46) Arterial Blood pO2 at Patient Temp 123 mmHg (75-108) Arterial Blood HCO3 34 mmol/L (21-28) Arterial Blood Base Excess 6 mmol/L (-3-3) Oxyhemoglobin 96.8 % Methemoglobin 0.5 % (0.0-1.9) Carbon Monoxide, Quantitative 0.1 % (0.0-1.9) FiO2 40 Test 08/21/19 12:47 08/21/19 16:09 08/21/19 17:57 08/22/19 06:10 Glucose (Fingerstick) 126 mg/dL (70-99) 148 mg/dL (70-99) O2 Saturation 93 % (92-99) Arterial Blood pH 7.47 (7.35-7.45) Arterial Blood pCO2 at Patient Temp 49 mmHg (35-46) Arterial Blood pO2 at Patient Temp 73 mmHg (75-108) Arterial Blood HCO3 35 mmol/L (21-28) Arterial Blood Base Excess 10 mmol/L (-3-3) Oxyhemoglobin 92.7 % Methemoglobin 0.4 % (0.0-1.9) Carbon Monoxide, Quantitative 0.3 % (0.0-1.9) FiO2 30 Sodium Level 154 mmol/L (136-145) Potassium Level 4.0 mmol/L (3.5-5.1) Chloride Level 114 mmol/L (98-107) Carbon Dioxide Level 33 mmol/L (21-32) Anion Gap 7 (6-14) Blood Urea Nitrogen 45 mg/dL (7-20) Creatinine 0.9 mg/dL (0.6-1.0) Estimated GFR (Cockcroft-Gault) 66.5 BUN/Creatinine Ratio 50 (6-20) Glucose Level 164 mg/dL (70-99) Calcium Level 8.8 mg/dL (8.5-10.1) Phosphorus Level 3.4 mg/dL (2.6-4.7) Magnesium Level 2.2 mg/dL (1.8-2.4) Total Bilirubin 0.5 mg/dL (0.2-1.0) Aspartate Amino Transf (AST/SGOT) 39 U/L (15-37) Alanine Aminotransferase (ALT/SGPT) 36 U/L (14-59) Alkaline Phosphatase 127 U/L (46-116) Total Protein 5.6 g/dL (6.4-8.2) Albumin 1.8 g/dL (3.4-5.0) Albumin/Globulin Ratio 0.5 (1.0-1.7) Triglycerides Level 174 mg/dL (0-150) Test 08/22/19 06:15 08/22/19 10:30 08/22/19 11:58 08/22/19 18:17 Glucose (Fingerstick) 153 mg/dL (70-99) 182 mg/dL (70-99) 145 mg/dL (70-99) White Blood Count 9.9 x10^3/uL (4.0-11.0) Red Blood Count 2.49 x10^6/uL (3.50-5.40) Hemoglobin 7.1 g/dL (12.0-15.5) Hematocrit 22.7 % (36.0-47.0) Mean Corpuscular Volume 91 fL (79-100) Mean Corpuscular Hemoglobin 29 pg (25-35) Mean Corpuscular Hemoglobin Concent 31 g/dL (31-37) Red Cell Distribution Width 18.9 % (11.5-14.5) Platelet Count 458 x10^3/uL (140-400) Neutrophils (%) (Auto) 74 % (31-73) Lymphocytes (%) (Auto) 19 % (24-48) Monocytes (%) (Auto) 5 % (0-9) Eosinophils (%) (Auto) 2 % (0-3) Basophils (%) (Auto) 0 % (0-3) Neutrophils # (Auto) 7.3 x10^3/uL (1.8-7.7) Lymphocytes # (Auto) 1.9 x10^3/uL (1.0-4.8) Monocytes # (Auto) 0.5 x10^3/uL (0.0-1.1) Eosinophils # (Auto) 0.1 x10^3/uL (0.0-0.7) Basophils # (Auto) 0.0 x10^3/uL (0.0-0.2) Laboratory Tests Test 08/22/19 06:10 08/22/19 06:15 08/22/19 10:30 08/22/19 11:58 Sodium Level 154 mmol/L (136-145) Potassium Level 4.0 mmol/L (3.5-5.1) Chloride Level 114 mmol/L (98-107) Carbon Dioxide Level 33 mmol/L (21-32) Anion Gap 7 (6-14) Blood Urea Nitrogen 45 mg/dL (7-20) Creatinine 0.9 mg/dL (0.6-1.0) Estimated GFR (Cockcroft-Gault) 66.5 BUN/Creatinine Ratio 50 (6-20) Glucose Level 164 mg/dL (70-99) Calcium Level 8.8 mg/dL (8.5-10.1) Phosphorus Level 3.4 mg/dL (2.6-4.7) Magnesium Level 2.2 mg/dL (1.8-2.4) Total Bilirubin 0.5 mg/dL (0.2-1.0) Aspartate Amino Transf (AST/SGOT) 39 U/L (15-37) Alanine Aminotransferase (ALT/SGPT) 36 U/L (14-59) Alkaline Phosphatase 127 U/L (46-116) Total Protein 5.6 g/dL (6.4-8.2) Albumin 1.8 g/dL (3.4-5.0) Albumin/Globulin Ratio 0.5 (1.0-1.7) Triglycerides Level 174 mg/dL (0-150) Glucose (Fingerstick) 153 mg/dL (70-99) 182 mg/dL (70-99) White Blood Count 9.9 x10^3/uL (4.0-11.0) Red Blood Count 2.49 x10^6/uL (3.50-5.40) Hemoglobin 7.1 g/dL (12.0-15.5) Hematocrit 22.7 % (36.0-47.0) Mean Corpuscular Volume 91 fL (79-100) Mean Corpuscular Hemoglobin 29 pg (25-35) Mean Corpuscular Hemoglobin Concent 31 g/dL (31-37) Red Cell Distribution Width 18.9 % (11.5-14.5) Platelet Count 458 x10^3/uL (140-400) Neutrophils (%) (Auto) 74 % (31-73) Lymphocytes (%) (Auto) 19 % (24-48) Monocytes (%) (Auto) 5 % (0-9) Eosinophils (%) (Auto) 2 % (0-3) Basophils (%) (Auto) 0 % (0-3) Neutrophils # (Auto) 7.3 x10^3/uL (1.8-7.7) Lymphocytes # (Auto) 1.9 x10^3/uL (1.0-4.8) Monocytes # (Auto) 0.5 x10^3/uL (0.0-1.1) Eosinophils # (Auto) 0.1 x10^3/uL (0.0-0.7) Basophils # (Auto) 0.0 x10^3/uL (0.0-0.2) Test 08/22/19 18:17 Glucose (Fingerstick) 145 mg/dL (70-99) Microbiology 08/18/19 Aerobic Culture - Final, Complete 08/18/19 Aerobic Culture Result 1 (ALEXANDRA) - Final, Complete 08/18/19 Gram Stain - Final, Complete 08/18/19 Gram Stain Result 1 (ALEXANDRA) - Final, Complete 08/18/19 Gram Stain Result 2 (ALEXANDRA) - Final, Complete 08/17/19 Blood Culture - Final, Complete NO GROWTH AFTER 5 DAYS 08/15/19 Aerobic and Anaerobic Culture - Final, Complete 08/15/19 Anaerobic Culture Result 1 (ALEXANDRA) - Final, Complete 08/15/19 Aerobic Culture - Final, Complete 08/15/19 Aerobic Culture Result 1 (ALEXANDRA) - Final, Complete 08/15/19 Gram Stain - Final, Complete 08/15/19 Gram Stain Result 1 (ALEXANDRA) - Final, Complete 08/15/19 Gram Stain Result 2 (ALEXANDRA) - Final, Complete 07/31/19 Urine Culture - Final, Complete 07/31/19 Urine Culture Result 1 (ALEXANDRA) - Final, Complete Medications Current Medications Sodium Chloride 1,000 ml @ 1,000 mls/hr Q1H IV Last administered on 07/04/19at 03:00; Start 07/04/19 at 03:00; Stop 07/04/19 at 03:59; Status DC Ondansetron HCl (Zofran) 4 mg 1X ONCE IVP Last administered on 07/04/19at 03:27; Start 07/04/19 at 03:00; Stop 07/04/19 at 03:01; Status DC Morphine Sulfate (Morphine Sulfate) 4 mg 1X ONCE IV ; Start 07/04/19 at 03:00; Stop 07/04/19 at 03:01; Status Cancel Ketorolac Tromethamine (Toradol 30mg Vial) 30 mg 1X ONCE IV Last administered on 07/04/19at 02:54; Start 07/04/19 at 03:00; Stop 07/04/19 at 03:01; Status DC Fentanyl Citrate (Fentanyl 2ml Vial) 25 mcg 1X ONCE IVP Last administered on 07/04/19at 03:23; Start 07/04/19 at 03:30; Stop 07/04/19 at 03:31; Status DC Fentanyl Citrate (Fentanyl 2ml Vial) 100 mcg STK-MED ONCE .ROUTE ; Start 07/04/19 at 03:18; Stop 07/04/19 at 03:18; Status DC Iohexol (Omnipaque 350 Mg/ml) 90 ml 1X ONCE IV Last administered on 07/04/19at 03:25; Start 07/04/19 at 03:30; Stop 07/04/19 at 03:31; Status DC Info (CONTRAST GIVEN -- Rx MONITORING) 1 each PRN DAILY PRN MC SEE COMMENTS; Start 07/04/19 at 03:30; Stop 07/06/19 at 03:29; Status DC Hydromorphone HCl (Dilaudid) 0.5 mg 1X ONCE IV Last administered on 07/04/19at 03:55; Start 07/04/19 at 04:30; Stop 07/04/19 at 04:32; Status DC Ondansetron HCl (Zofran) 4 mg PRN Q8HRS PRN IV NAUSEA/VOMITING 1ST CHOICE; Start 07/04/19 at 05:00; Stop 07/04/19 at 09:27; Status DC Morphine Sulfate (Morphine Sulfate) 2 mg PRN Q2HR PRN IV SEVERE PAIN 7-10 Last administered on 07/05/19at 12:26; Start 07/04/19 at 05:00; Stop 07/05/19 at 14:15; Status DC Sodium Chloride 1,000 ml @ 125 mls/hr Q8H IV Last administered on 07/04/19at 20:56; Start 07/04/19 at 05:00; Stop 07/05/19 at 04:59; Status DC Hydromorphone HCl (Dilaudid) 0.5 mg PRN Q3HRS PRN IV SEVERE PAIN 7-10 Last administered on 07/05/19at 10:06; Start 07/04/19 at 05:00; Stop 07/05/19 at 12:01; Status DC Piperacillin Sod/ Tazobactam Sod 4.5 gm/Sodium Chloride 100 ml @ 200 mls/hr 1X ONCE IV Last administered on 07/04/19at 05:44; Start 07/04/19 at 06:00; Stop 07/04/19 at 06:29; Status DC Ondansetron HCl (Zofran) 4 mg PRN Q4HRS PRN IV NAUSEA/VOMITING 1ST CHOICE Last administered on 08/22/19at 11:59; Start 07/04/19 at 09:30 Insulin Human Lispro (HumaLOG) 0-9 UNITS Q6HRS SQ Last administered on 08/18/19at 17:29; Start 07/04/19 at 09:30 Dextrose (Dextrose 50%-Water Syringe) 12.5 gm PRN Q15MIN PRN IV SEE COMMENTS; Start 07/04/19 at 09:30 Pantoprazole Sodium (PROTONIX VIAL for IV PUSH) 40 mg DAILYAC IVP Last ad ministered on 08/22/19at 10:48; Start 07/04/19 at 11:30 Prochlorperazine Edisylate (Compazine) 10 mg PRN Q6HRS PRN IV NAUSEA/VOMITING, 2nd CHOICE Last administered on 08/22/19 06:06; Start 07/04/19 at 17:45 Atenolol (Tenormin) 100 mg DAILY PO ; Start 07/05/19 at 09:00; Stop 07/04/19 at 20:08; Status DC Metoprolol Tartrate (Lopressor Vial) 2.5 mg Q6HRS IVP Last administered on 07/04at 05:51; Start 07/04/19 at 20:15; Stop 07/05/19 at 10:02; Status DC Metoprolol Tartrate (Lopressor Vial) 5 mg Q6HRS IVP Last administered on 07/14/19at 00:12; Start 07/05/19 at 10:15; Stop 07/16/19 at 08:48; Status DC Hydromorphone HCl (Dilaudid) 1 mg PRN Q3HRS PRN IV SEVERE PAIN 7-10 Last administered on 07/11/19at 05:13; Start 07/05/19 at 12:00; Stop 07/19/19 at 00:25; Status DC Lidocaine HCl (Buffered Lidocaine 1%) 3 ml STK-MED ONCE .ROUTE ; Start 07/05/19 at 12:55; Stop 07/05/19 at 12:56; Status DC Albumin Human 500 ml @ 125 mls/hr 1X ONCE IV Last administered on 07/05/19at 14:33; Start 07/05/19 at 14:30; Stop 07/05/19 at 18:32; Status DC Norepinephrine Bitartrate 8 mg/ Dextrose 258 ml @ 17.299 mls/ hr CONT PRN IV PER PROTOCOL Last administered on 08/02/19at 12:48; Start 07/05/19 at 15:30; Stop 08/05/19 at 09:19; Status DC Sodium Chloride 1,000 ml @ 125 mls/hr Q8H IV Last administered on 07/05/19at 21:04; Start 07/05/19 at 16:00; Stop 07/06/19 at 02:42; Status DC Albumin Human 500 ml @ 125 mls/hr PRN BID PRN IV After every 2L NSS & BP < 90mm Last administered on 07/20/19at 14:21; Start 07/05/19 at 16:00 Iohexol (Omnipaque 300 Mg/ml) 60 ml 1X ONCE IV Last administered on 07/05/19at 17:20; Start 07/05/19 at 17:00; Stop 07/05/19 at 17:01; Status DC Info (CONTRAST GIVEN -- Rx MONITORING) 1 each PRN DAILY PRN MC SEE COMMENTS; Start 07/05/19 at 17:00; Stop 07/07/19 at 16:59; Status DC Meropenem 1 gm/ Sodium Chloride 100 ml @ 200 mls/hr Q8HRS IV Last administered on 07/06/19at 05:45; Start 07/05/19 at 20:00; Stop 3/18/20 at 08:48; Status DC Furosemide (Lasix) 40 mg 1X ONCE IVP Last administered on 07/05/19at 22:12; Start 07/05/19 at 22:30; Stop 07/05/19 at 22:31; Status DC Calcium Chloride 1000 mg/Sodium Chloride 110 ml @ 220 mls/hr 1X ONCE IV Last administered on 07/05/19at 22:11; Start 07/05/19 at 22:30; Stop 07/05/19 at 22:59; Status DC Albuterol Sulfate (Ventolin Neb Soln) 2.5 mg 1X ONCE NEB Last administered on 07/06/19at 00:56; Start 07/05/19 at 22:30; Stop 07/05/19 at 22:31; Status DC Insulin Human Regular (HumuLIN R VIAL) 5 unit 1X ONCE IV Last administered on 07/05/19at 22:14; Start 07/05/19 at 22:30; Stop 07/05/19 at 22:31; Status DC Magnesium Sulfate 50 ml @ 25 mls/hr 1X ONCE IV Last administered on 07/06/19at 02:57; Start 07/06/19 at 03:00; Stop 07/06/19 at 04:59; Status DC Calcium Gluconate 1000 mg/Sodium Chloride 110 ml @ 220 mls/hr 1X ONCE IV Last administered on 07/06/19at 02:46; Start 07/06/19 at 03:00; Stop 07/06/19 at 03:29; Status DC Sodium Chloride 1,000 ml @ 200 mls/hr Q5H IV Last administered on 07/06/19at 02:46; Start 07/06/19 at 03:00; Stop 07/06/19 at 10:21; Status DC Calcium Gluconate 1000 mg/Sodium Chloride 110 ml @ 220 mls/hr 1X ONCE IV Last administered on 07/06/19at 03:21; Start 07/06/19 at 03:30; Stop 07/06/19 at 03:59; Status DC Sodium Bicarbonate 50 meq/Sodium Chloride 1,050 ml @ 75 mls/hr Q14H IV Last administered on 07/10/19at 21:10; Start 07/06/19 at 07:30; Stop 07/11/19 at 10:28; Status DC Calcium Gluconate 2000 mg/Sodium Chloride 120 ml @ 220 mls/hr 1X ONCE IV Last administered on 07/06/19at 09:05; Start 07/06/19 at 07:30; Stop 07/06/19 at 08:02; Status DC Lidocaine HCl (Xylocaine-Mpf 1% 2ml Vial) 2 ml STK-MED ONCE .ROUTE ; Start 07/06/19 at 08:47; Stop 07/06/19 at 08:47; Status DC Meropenem 500 mg/ Sodium Chloride 50 ml @ 100 mls/hr Q12HR IV Last administered on 07/11/19at 21:01; Start 07/06/19 at 18:00; Stop 07/12/19 at 07:58; Status DC Lidocaine HCl (Buffered Lidocaine 1%) 3 ml STK-MED ONCE .ROUTE ; Start 07/06/19 at 09:46; Stop 07/06/19 at 09:46; Status DC Lidocaine HCl (Buffered Lidocaine 1%) 6 ml 1X ONCE INJ Last administered on 07/06/19at 10:26; Start 07/06/19 at 10:15; Stop 07/06/19 at 10:16; Status DC Info (Tpn Per Pharmacy) 1 each PRN DAILY PRN MC SEE COMMENTS Last administered on 08/22/19at 13:52; Start 07/06/19 at 12:00 Sodium Chloride 1,000 ml @ 1,000 mls/hr Q1H PRN IV hypotension; Start 07/06/19 at 12:07; Stop 07/06/19 at 18:06; Status DC Diphenhydramine HCl (Benadryl) 25 mg 1X PRN PRN IV ITCHING; Start 07/06/19 at 12:15; Stop 07/07/19 at 12:14; Status DC Diphenhydramine HCl (Benadryl) 25 mg 1X PRN PRN IV ITCHING; Start 07/06/19 at 12:15; Stop 07/07/19 at 12:14; Status DC Sodium Chloride 1,000 ml @ 400 mls/hr Q2H30M PRN IV PATENCY; Start 07/06/19 at 12:07; Stop 07/07/19 at 00:06; Status DC Info (PHARMACY MONITORING -- do not chart) 1 each PRN DAILY PRN MC SEE COMMENTS; Start 07/06/19 at 12:15; Stop 07/08/19 at 08:13; Status DC Sodium Chloride 90 meq/Calcium Gluconate 10 meq/ Multivitamins 10 ml/Chromium/ Copper/Manganese/ Seleni/Zn 1 ml/ Total Parenteral Nutrition/Amino Acids/Dextrose/ Fat Emulsion Intravenous 55.005 ml @ 2.292 mls/hr TPN CONT IV ; Start 07/06/19 at 22:00; Stop 07/06/19 at 12:33; Status DC Info (Tpn Per Pharmacy) 1 each PRN DAILY PRN MC SEE COMMENTS; Start 07/06/19 at 12:30; Status UNV Sodium Chloride 90 meq/Calcium Gluconate 10 meq/ Multivitamins 10 ml/Chromium/ Copper/Manganese/ Seleni/Zn 0.5 ml/ Total Parenteral Nutrition/Amino Acids/Dextrose/ Fat Emulsion Intravenous 1,512 ml @ 63 mls/hr TPN CONT IV Last administered on 07/06/19at 22:06; Start 07/06/19 at 22:00; Stop 07/07/19 at 21:59; Status DC Calcium Carbonate/ Glycine (Tums) 500 mg PRN AFTMEALHC PRN PO INDIGESTION; Start 07/06/19 at 17:45 Calcium Gluconate (Calcium Gluconate) 2,000 mg 1X ONCE IVP Last administered on 07/07/19at 02:19; Start 07/07/19 at 02:15; Stop 07/07/19 at 02:16; Status DC Calcium Chloride 3000 mg/Sodium Chloride 1,030 ml @ 50 mls/hr [id number] IV Last administered on 07/09/19at 02:17; Start 07/07/19 at 08:00; Stop 07/09/19 at 15:23; Status DC Lorazepam (Ativan Inj) 1 mg PRN Q4HRS PRN IVP ANXIETY / AGITATION, 2nd choic Last administered on 08/05/19at 03:51; Start 07/07/19 at 09:00; Stop 08/05/19 at 09:19; Status DC Sodium Chloride 1,000 ml @ 1,000 mls/hr Q1H PRN IV hypotension; Start 07/07/19 at 08:56; Stop 07/07/19 at 14:55; Status DC Albumin Human 200 ml @ 200 mls/hr 1X PRN PRN IV Hypotension; Start 07/07/19 at 09:00; Stop 07/07/19 at 14:59; Status DC Diphenhydramine HCl (Benadryl) 25 mg 1X PRN PRN IV ITCHING; Start 07/07/19 at 09:00; Stop 07/08/19 at 08:59; Status DC Diphenhydramine HCl (Benadryl) 25 mg 1X PRN PRN IV ITCHING; Start 07/07/19 at 09:00; Stop 07/08/19 at 08:59; Status DC Sodium Chloride 1,000 ml @ 400 mls/hr Q2H30M PRN IV PATENCY; Start 07/07/19 at 08:56; Stop 07/07/19 at 20:55; Status DC Info (PHARMACY MONITORING -- do not chart) 1 each PRN DAILY PRN MC SEE COMME NTS; Start 07/07/19 at 09:00; Status UNV Info (PHARMACY MONITORING -- do not chart) 1 each PRN DAILY PRN MC SEE COMMENTS; Start 07/07/19 at 09:00; Stop 07/08/19 at 08:13; Status DC Digoxin (Lanoxin) 500 mcg 1X ONCE IV Last administered on 07/07/19at 10:04; Start 07/07/19 at 10:00; Stop 07/07/19 at 10:01; Status DC Digoxin (Lanoxin) 125 mcg 1X ONCE IV Last administered on 07/07/19at 17:10; Start 07/07/19 at 18:00; Stop 07/07/19 at 18:01; Status DC Magnesium Sulfate 100 ml @ 25 mls/hr 1X ONCE IV Last administered on 07/07/19at 12:48; Start 07/07/19 at 13:00; Stop 07/07/19 at 16:59; Status DC Sodium Chloride 90 meq/Magnesium Sulfate 10 meq/ Calcium Gluconate 20 meq/ Multivitamins 10 ml/Chromium/ Copper/Manganese/ Seleni/Zn 0.5 ml/ Total Parenteral Nutrition/Amino Acids/Dextrose/ Fat Emulsion Intravenous 1,512 ml @ 63 mls/hr TPN CONT IV Last administered on 07/07/19at 22:25; Start 07/07/19 at 22:00; Stop 07/08/19 at 21:59; Status DC Sodium Chloride 1,000 ml @ 1,000 mls/hr Q1H PRN IV hypotension; Start 07/08/19 at 08:05; Stop 07/08/19 at 14:04; Status DC Albumin Human 200 ml @ 200 mls/hr 1X ONCE IV Last administered on 07/08/19at 08:57; Start 07/08/19 at 08:15; Stop 07/08/19 at 09:14; Status DC Diphenhydramine HCl (Benadryl) 25 mg 1X PRN PRN IV ITCHING; Start 07/08/19 at 08:15; Stop 07/09/19 at 08:14; Status DC Diphenhydramine HCl (Benadryl) 25 mg 1X PRN PRN IV ITCHING; Start 07/08/19 at 08:15; Stop 07/09/19 at 08:14; Status DC Sodium Chloride 1,000 ml @ 400 mls/hr Q2H30M PRN IV PATENCY; Start 07/08/19 at 08:05; Stop 07/08/19 at 20:04; Status DC Info (PHARMACY MONITORING -- do not chart) 1 each PRN DAILY PRN MC JOAQUIN Cardoza OMMENTS; Start 07/08/19 at 08:15; Stop 07/12/19 at 07:57; Status DC Sodium Chloride 90 meq/Potassium Chloride 15 meq/ Potassium Phosphate 10 mmol/ Magnesium Sulfate 10 meq/Calcium Gluconate 20 meq/ Multivitamins 10 ml/Chromium/ Copper/Manganese/ Seleni/Zn 0.5 ml/ Total Parenteral Nutrition/Amino Acids/Dextrose/ Fat Emulsion Intravenous 1,512 ml @ 63 mls/hr TPN CONT IV Last administered on 07/08/19at 21:01; Start 07/08/19 at 22:00; Stop 07/09/19 at 21:59; Status DC Potassium Chloride/Water 100 ml @ 100 mls/hr 1X ONCE IV Last administered on 07/08/19at 14:09; Start 07/08/19 at 14:00; Stop 07/08/19 at 14:59; Status DC Benzocaine (Hurricaine One) 1 spray 1X ONCE MM Last administered on 07/08/19at 16:38; Start 07/08/19 at 14:30; Stop 07/08/19 at 14:31; Status DC Lidocaine HCl (Glydo (Lidocaine) Jelly) 1 ramu 1X ONCE MM Last administered on 07/08/19at 16:38; Start 07/08/19 at 14:30; Stop 07/08/19 at 14:31; Status DC Linezolid/Dextrose 300 ml @ 300 mls/hr Q12HR IV Last administered on 07/14/19at 21:04; Start 07/08/19 at 20:00; Stop 07/15/19 at 07:50; Status DC Acetaminophen (Tylenol) 650 mg PRN Q6HRS PRN PO MILD PAIN / TEMP; Start 07/09/19 at 03:30; Stop 07/09/19 at 03:36; Status DC Acetaminophen (Tylenol) 650 mg PRN Q6HRS PRN PEG MILD PAIN / TEMP Last administered on 08/04/19at 19:56; Start 07/09/19 at 03:36 Sodium Chloride 1,000 ml @ 1,000 mls/hr Q1H PRN IV hypotension; Start 07/09/19 at 07:50; Stop 07/09/19 at 13:49; Status DC Albumin Human 200 ml @ 200 mls/hr 1X PRN PRN IV Hypotension; Start 07/09/19 at 08:00; Stop 07/09/19 at 13:59; Status DC Sodium Chloride (Normal Saline Flush) 10 ml 1X PRN PRN IV AP catheter pack; Start 07/09/19 at 08:00; Stop 07/10/19 at 07:59; Status DC Sodium Chloride (Normal Saline Flush) 10 ml 1X PRN PRN IV FURNITURE CRATER catheter pack; Start 07/09/19 at 08:00; Stop 07/10/19 at 07:59; Status DC Sodium Chloride 1,000 ml @ 400 mls/hr Q2H30M PRN IV PATENCY; Start 07/09/19 at 07:50; Stop 07/09/19 at 19:49; Status DC Info (PHARMACY MONITORING -- do not chart) 1 each PRN DAILY PRN MC SEE COMMENTS; Start 07/09/19 at 08:00; Status UNV Info (PHARMACY MONITORING -- do not chart) 1 each PRN DAILY PRN MC SEE COM MENTS; Start 07/09/19 at 08:00; Stop 07/11/19 at 08:25; Status DC Sodium Chloride 90 meq/Potassium Chloride 15 meq/ Potassium Phosphate 10 mmol/ Magnesium Sulfate 10 meq/Calcium Gluconate 20 meq/ Multivitamins 10 ml/Chromium/ Copper/Manganese/ Seleni/Zn 0.5 ml/ Total Parenteral Nutrition/Amino Acids/Dextrose/ Fat Emulsion Intravenous 1,512 ml @ 63 mls/hr TPN CONT IV Last administered on 07/09/19at 20:57; Start 07/09/19 at 22:00; Stop 07/10/19 at 21:59; Status DC Sodium Chloride 90 meq/Potassium Chloride 15 meq/ Potassium Phosphate 15 mmol/ Magnesium Sulfate 10 meq/Calcium Gluconate 20 meq/ Multivitamins 10 ml/Chromium/ Copper/Manganese/ Seleni/Zn 0.5 ml/ Total Parenteral Nutrition/Amino Acids/Dextrose/ Fat Emulsion Intravenous 1,512 ml @ 63 mls/hr TPN CONT IV ; Start 07/10/19 at 22:00; Stop 07/10/19 at 14:16; Status DC Sodium Chloride 90 meq/Potassium Chloride 15 meq/ Potassium Phosphate 15 mmol/ Magnesium Sulfate 10 meq/Calcium Gluconate 20 meq/ Multivitamins 10 ml/Chromium/ Copper/Manganese/ Seleni/Zn 0.5 ml/ Total Parenteral Nutrition/Amino Acids/Dextrose/ Fat Emulsion Intravenous 1,200 ml @ 50 mls/hr TPN CONT IV ; Start 07/10/19 at 22:00; Stop 07/10/19 at 14:17; Status DC Sodium Chloride 90 meq/Potassium Chloride 15 meq/ Potassium Phosphate 10 mmol/ Magnesium Sulfate 10 meq/Calcium Gluconate 20 meq/ Multivitamins 10 ml/Chromium/ Copper/Manganese/ Seleni/Zn 0.5 ml/ Total Parenteral Nutrition/Amino Acids/Dextrose/ Fat Emulsion Intravenous 1,200 ml @ 50 mls/hr TPN CONT IV Last administered on 07/10/19at 23:29; Start 07/10/19 at 22:00; Stop 07/11/19 at 21:59; Status DC Sodium Chloride 1,000 ml @ 1,000 mls/hr Q1H PRN IV hypotension; Start 07/11/19 at 07:28; Stop 07/11/19 at 13:27; Status DC Albumin Human 200 ml @ 200 mls/hr 1X ONCE IV Last administered on 07/11/19at 08:51; Start 07/11/19 at 07:30; Stop 07/11/19 at 08:29; Status DC Diphenhydramine HCl (Benadryl) 25 mg 1X PRN PRN IV ITCHING; Start 07/11/19 at 07:30; Stop 07/12/19 at 07:29; Status DC Diphenhydramine HCl (Benadryl) 25 mg 1X PRN PRN IV ITCHING; Start 07/11/19 at 07:30; Stop 07/12/19 at 07:29; Status DC Sodium Chloride 1,000 ml @ 400 mls/hr Q2H30M PRN IV PATENCY; Start 07/11/19 at 07:28; Stop 07/11/19 at 19:27; Status DC Info (PHARMACY MONITORING -- do not chart) 1 each PRN DAILY PRN MC SEE COMMENTS; Start 07/11/19 at 07:30; Stop 07/22/19 at 13:01; Status DC Metronidazole 100 ml @ 100 mls/hr Q6HRS IV Last administered on 07/27/19at 06:26; Start 07/11/19 at 08:30; Stop 07/27/19 at 09:58; Status DC Micafungin Sodium 100 mg/Dextrose 100 ml @ 100 mls/hr Q24H IV Last administered on 08/18/19at 08:18; Start 07/11/19 at 09:00; Stop 08/18/19 at 20:58; Status DC Propofol 0 ml @ As Directed STK-MED ONCE IV ; Start 07/11/19 at 07:53; Stop 07/11/19 at 07:53; Status DC Etomidate (Amidate) 20 mg STK-MED ONCE IV ; Start 07/11/19 at 07:53; Stop 07/11/19 at 07:54; Status DC Midazolam HCl (Versed) 5 mg STK-MED ONCE .ROUTE ; Start 07/11/19 at 07:57; Stop 07/11/19 at 07:57; Status DC Fentanyl Citrate 30 ml @ 0 mls/hr CONT PRN IV SEE PROTOCOL Last administered on 08/05/19at 06:12; Start 07/11/19 at 08:15; Stop 08/05/19 at 09:19; Status DC Artificial Tears (Artificial Tears) 1 drop PRN Q1HR PRN OU DRY EYE, 1st choice; Start 07/11/19 at 08:15; Stop 08/17/19 at 05:31; Status DC Midazolam HCl 50 mg/Sodium Chloride 50 ml @ 0 mls/hr CONT PRN IV SEE PROTOCOL Last administered on 07/14/19at 22:39; Start 07/11/19 at 08:15; Stop 07/16/19 at 15:59; Status DC Etomidate (Amidate) 8 mg 1X ONCE IV Last administered on 07/11/19at 08:33; Start 07/11/19 at 08:30; Stop 07/11/19 at 08:31; Status DC Succinylcholine Chloride (Anectine) 120 mg 1X ONCE IV Last administered on 07/11/19at 08:34; Start 07/11/19 at 08:30; Stop 07/11/19 at 08:31; Status DC Midazolam HCl (Versed) 5 mg 1X ONCE IV ; Start 07/11/19 at 08:30; Stop 07/11/19 at 08:31; Status DC Potassium Chloride 15 meq/ Bicarbonate Dialysis Soln w/ out KCl 5,007.5 ml @ 1,000 mls/ hr Q5H1M IV Last administered on 07/12/19at 11:11; Start 07/11/19 at 12:00; Stop 07/12/19 at 11:15; Status DC Potassium Chloride 15 meq/ Bicarbonate Dialysis Soln w/ out KCl 5,007.5 ml @ 1,000 mls/ hr Q5H1M IV Last administered on 07/12/19at 11:12; Start 07/11/19 at 12:00; Stop 07/12/19 at 11:17; Status DC Potassium Chloride 15 meq/ Bicarbonate Dialysis Soln w/ out KCl 5,007.5 ml @ 1,000 mls/ hr Q5H1M IV Last administered on 07/12/19at 11:11; Start 07/11/19 at 12:00; Stop 07/12/19 at 11:19; Status DC Sodium Chloride 90 meq/Potassium Chloride 15 meq/ Potassium Phosphate 10 mmol/ Magnesium Sulfate 10 meq/Calcium Gluconate 20 meq/ Multivitamins 10 ml/Chromium/ Copper/Manganese/ Seleni/Zn 0.5 ml/ Total Parenteral Nutrition/Amino Acids/Dextrose/ Fat Emulsion Intravenous 1,400 ml @ 58.333 mls/ hr TPN CONT IV Last administered on 07/11/19at 21:42; Start 07/11/19 at 22:00; Stop 07/12/19 at 21:59; Status DC Heparin Sodium (Porcine) (Heparin Sodium) 5,000 unit Q8HRS SQ Last administered on 07/16/19at 05:55; Start 07/11/19 at 15:00; Stop 07/16/19 at 13:28; Status DC Meropenem 500 mg/ Sodium Chloride 50 ml @ 100 mls/hr Q6HRS IV Last admin istered on 07/13/19at 06:00; Start 07/12/19 at 09:00; Stop 07/13/19 at 07:29; Status DC Potassium Phosphate 20 mmol/ Sodium Chloride 106.6667 ml @ 51.667 m... 1X ONCE IV Last administered on 07/12/19at 11:22; Start 07/12/19 at 10:15; Stop 07/12/19 at 12:18; Status DC Acetaminophen (Tylenol Supp) 650 mg PRN Q6HRS PRN [place] MILD PAIN / TEMP > 100.3'F Last administered on 08/21/19at 23:26; Start 07/12/19 at 10:30 Potassium Chloride/Water 100 ml @ 100 mls/hr Q1H IV Last administered on 07/12/19at 12:12; Start 07/12/19 at 11:00; Stop 07/12/19 at 12:59; Status DC Potassium Chloride 20 meq/ Bicarbonate Dialysis Soln w/ out KCl 5,010 ml @ 1,000 mls/hr Q5H1M IV Last administered on 07/13/19at 08:48; Start 07/12/19 at 12:00; Stop 07/13/19 at 13:03; Status DC Potassium Chloride 20 meq/ Bicarbonate Dialysis Soln w/ out KCl 5,010 ml @ 1,000 mls/hr Q5H1M IV Last administered on 07/17/19at 14:52; Start 07/12/19 at 11:30; Stop 07/17/19 at 19:59; Status DC Potassium Chloride 20 meq/ Bicarbonate Dialysis Soln w/ out KCl 5,010 ml @ 1,000 mls/hr Q5H1M IV Last administered on 07/17/19at 14:53; Start 07/12/19 at 11:30; Stop 07/17/19 at 19:59; Status DC Sodium Chloride 90 meq/Potassium Chloride 15 meq/ Potassium Phosphate 15 mmol/ Magnesium Sulfate 10 meq/Calcium Gluconate 15 meq/ Multivitamins 10 ml/Chromium/ Copper/Manganese/ Seleni/Zn 0.5 ml/ Total Parenteral Nutrition/Amino Acids/Dextrose/ Fat Emulsion Intravenous 1,400 ml @ 58.333 mls/ hr TPN CONT IV Last administered on 07/12/19at 22:17; Start 07/12/19 at 22:00; Stop 07/13/19 at 21:59; Status DC Cefepime HCl (Maxipime) 2 gm Q12HR IVP Last administered on 07/26/19at 20:56; Start 07/13/19 at 09:00; Stop 07/27/19 at 09:58; Status DC Daptomycin 500 mg/ Sodium Chloride 50 ml @ 100 mls/hr Q48H IV Last administered on 07/29/19at 09:57; Start 07/13/19 at 08:30; Stop 07/29/19 at 10:07; Status DC Lidocaine HCl (Buffered Lidocaine 1%) 3 ml 1X ONCE INJ Last administered on 07/13/19at 10:27; Start 07/13/19 at 10:30; Stop 07/13/19 at 10:31; Status DC Potassium Phosphate 20 mmol/ Sodium Chloride 106.6667 ml @ 51.667 m... 1X ONCE IV Last administered on 07/13/19at 12:51; Start 07/13/19 at 13:00; Stop 07/13/19 at 15:03; Status DC Sodium Chloride 90 meq/Potassium Chloride 15 meq/ Potassium Phosphate 18 mmol/ Magnesium Sulfate 8 meq/Calcium Gluconate 15 meq/ Multivitamins 10 ml/Chromium/ Copper/Manganese/ Seleni/Zn 0.5 ml/ Total Parenteral Nutrition/Amino Aci ds/Dextrose/ Fat Emulsion Intravenous 1,400 ml @ 58.333 mls/ hr TPN CONT IV Last administered on 07/13/19at 22:16; Start 07/13/19 at 22:00; Stop 07/14/19 at 21:59; Status DC Potassium Chloride 20 meq/ Bicarbonate Dialysis Soln w/ out KCl 5,010 ml @ 1,0 00 mls/hr Q5H1M IV Last administered on 07/17/19at 14:54; Start 07/13/19 at 16:00; Stop 07/17/19 at 19:59; Status DC Multi-Ingred Cream/Lotion/Oil/ Oint (Artificial Tears Eye Ointment) 1 ramu PRN Q1HR PRN OU DRY EYE, 2nd choice Last administered on 08/01/19at 08:19; Start 07/13/19 at 17:30 Sodium Chloride 90 meq/Potassium Chloride 15 meq/ Potassium Phosphate 18 mmol/ Magnesium Sulfate 8 meq/Calcium Gluconate 15 meq/ Multivitamins 10 ml/Chromium/ Copper/Manganese/ Seleni/Zn 0.5 ml/ Total Parenteral Nutrition/Amino Acids/Dextrose/ Fat Emulsion Intravenous 1,400 ml @ 58.333 mls/ hr TPN CONT IV Last administered on 07/14/19at 22:00; Start 07/14/19 at 22:00; Stop 07/15/19 at 21:59; Status DC Albumin Human 500 ml @ 125 mls/hr 1X ONCE IV ; Start 07/14/19 at 14:15; Stop 07/14/19 at 18:14; Status DC Sodium Chloride 90 meq/Potassium Chloride 15 meq/ Potassium Phosphate 18 mmol/ Magnesium Sulfate 8 meq/Calcium Gluconate 15 meq/ Multivitamins 10 ml/Chromium/ Copper/Manganese/ Seleni/Zn 0.5 ml/ Insulin Human Regular 10 unit/ Total Parenteral Nutrition/Amino Acids/Dextrose/ Fat Emulsion Intravenous 1,400 ml @ 58.333 mls/ hr TPN CONT IV Last administered on 07/15/19at 21:43; Start 07/15/19 at 22:00; Stop 07/16/19 at 21:59; Status DC Lidocaine HCl (Buffered Lidocaine 1%) 3 ml STK-MED ONCE .ROUTE ; Start 07/13/19 at 10:00; Stop 07/15/19 at 13:57; Status DC Midazolam HCl 100 mg/Sodium Chloride 100 ml @ 7 mls/hr CONT PRN IV SEE PROTOCOL Last administered on 07/27/19at 15:35; Start 07/16/19 at 16:00 Sodium Chloride 90 meq/Potassium Chloride 15 meq/ Potassium Phosphate 18 mmol/ Magnesium Sulfate 8 meq/Calcium Gluconate 15 meq/ Multivitamins 10 ml/Chromium/ Copper/Manganese/ Seleni/Zn 0.5 ml/ Insulin Human Regular 15 unit/ Total Parenteral Nutrition/Amino Acids/Dextrose/ Fat Emulsion Intravenous 1,400 ml @ 58.333 mls/ hr TPN CONT IV Last administered on 07/16/19at 20:34; Start 07/16/19 at 22:00; Stop 07/17/19 at 21:59; Status DC Info (Icu Electrolyte Protocol) 1 ea CONT PRN PRN MC PER PROTOCOL; Start 07/17/19 at 13:15 Sodium Chloride 90 meq/Potassium Chloride 15 meq/ Potassium Phosphate 18 mmol/ Magnesium Sulfate 8 meq/Calcium Gluconate 15 meq/ Multivitamins 10 ml/Chromium/ Copper/Manganese/ Seleni/Zn 0.5 ml/ Insulin Human Regular 15 unit/ Total Parenteral Nutrition/Amino Acids/Dextrose/ Fat Emulsion Intravenous 1,400 ml @ 58.333 mls/ hr TPN CONT IV Last administered on 07/17/19at 22:05; Start at 22:00; Stop 07/18/19 at 21:59; Status DC Potassium Chloride 15 meq/ Bicarbonate Dialysis Soln w/ out KCl 5,007.5 ml @ 1,000 mls/ hr Q5H1M IV Last administered on 07/20/19at 18:14; Start 07/17/19 at 20:00; Stop 07/21/19 at 13:08; Status DC Potassium Chloride 15 meq/ Bicarbonate Dialysis Soln w/ out KCl 5,007.5 ml @ 1,000 mls/ hr Q5H1M IV Last administered on 07/20/19at 18:14; Start 07/17/19 at 20:00; Stop 07/21/19 at 13:08; Status DC Potassium Chloride 15 meq/ Bicarbonate Dialysis Soln w/ out KCl 5,007.5 ml @ 1,000 mls/ hr Q5H1M IV Last administered on 07/20/19at 18:14; Start 07/17/19 at 20:00; Stop 07/21/19 at 13:08; Status DC Iohexol (Omnipaque 240 Mg/ml) 30 ml 1X ONCE PO Last administered on 07/18/19at 11:30; Start 07/18/19 at 11:30; Stop 07/18/19 at 11:33; Status DC Info (CONTRAST GIVEN -- Rx MONITORING) 1 each PRN DAILY PRN MC SEE COMMENTS; Start 07/18/19 at 11:45; Stop 07/20/19 at 11:44; Status DC Sodium Chloride 90 meq/Potassium Chloride 15 meq/ Potassium Phosphate 18 mmol/ Magnesium Sulfate 8 meq/Calcium Gluconate 15 meq/ Multivitamins 10 ml/Chromium/ Copper/Manganese/ Seleni/Zn 0.5 ml/ Insulin Human Regular 15 unit/ Total Parenteral Nutrition/Amino Acids/Dextrose/ Fat Emulsion Intravenous 1,400 ml @ 58.333 mls/ hr TPN CONT IV Last administered on 07/18/19at 21:47; Start 07/18/19 at 22:00; Stop 07/19/19 at 21:59; Status DC Sodium Chloride 90 meq/Potassium Chloride 15 meq/ Potassium Phosphate 18 mmol/ Magnesium Sulfate 8 meq/Calcium Gluconate 15 meq/ Multivitamins 10 ml/Chromium/ Copper/Manganese/ Seleni/Zn 0.5 ml/ Insulin Human Regular 20 unit/ Total Parenteral Nutrition/Amino Acids/Dextrose/ Fat Emulsion Intravenous 1,400 ml @ 58.333 mls/ hr TPN CONT IV Last administered on 07/19/19at 21:36; Start 07/19/19 at 22:00; Stop 07/20/19 at 21:59; Status DC Alteplase, Recombinant (Cathflo For Central Catheter Clearance) 1 mg 1X ONCE INT CAT Last administered on 07/19/19at 20:03; Start 07/19/19 at 19:30; Stop 07/19/19 at 19:46; Status DC Alteplase, Recombinant (Cathflo For Central Catheter Clearance) 1 mg 1X ONCE INT CAT Last administered on 07/19/19at 22:05; Start 07/19/19 at 22:00; Stop 07/19/19 at 22:01; Status DC Sodium Chloride 90 meq/Potassium Chloride 15 meq/ Potassium Phosphate 18 mmol/ Magnesium Sulfate 8 meq/Calcium Gluconate 15 meq/ Multivitamins 10 ml/Chromium/ Copper/Manganese/ Seleni/Zn 0.5 ml/ Insulin Human Regular 20 unit/ Total Parenteral Nutrition/Amino Acids/Dextrose/ Fat Emulsion Intravenous 1,400 ml @ 58.333 mls/ hr TPN CONT IV Last administered on 07/20/19at 21:30; Start 07/20/19 at 22:00; Stop 07/21/19 at 21:59; Status DC Dexmedetomidine HCl 400 mcg/ Sodium Chloride 100 ml @ 0 mls/hr CONT PRN IV ANXIETY / AGITATION Last administered on 08/22/19at 18:21; Start 07/21/19 at 08:15 Sodium Chloride 500 ml @ 500 mls/hr 1X PRN PRN IV ELEVATED BP, SEE COMMENTS; Start 07/21/19 at 08:15 Atropine Sulfate (ATROPINE 0.5mg SYRINGE) 0.5 mg PRN Q5MIN PRN IV SEE COMMENTS; Start 07/21/19 at 08:15 Furosemide (Lasix) 20 mg 1X ONCE IVP Last administered on 07/21/19at 08:19; Start 07/21/19 at 08:15; Stop 07/21/19 at 08:16; Status DC Lidocaine HCl (Buffered Lidocaine 1%) 3 ml STK-MED ONCE .ROUTE ; Start 07/21/19 at 08:39; Stop 07/21/19 at 08:39; Status DC Lidocaine HCl (Buffered Lidocaine 1%) 6 ml 1X ONCE INJ Last administered on 07/21/19at 09:05; Start 07/21/19 at 09:00; Stop 07/21/19 at 09:06; Status DC Sodium Chloride 90 meq/Potassium Chloride 15 meq/ Potassium Phosphate 18 mmol/ Magnesium Sulfate 8 meq/Calcium Gluconate 15 meq/ Multivitamins 10 ml/Chromium/ Copper/Manganese/ Seleni/Zn 0.5 ml/ Insulin Human Regular 20 unit/ Total Parenteral Nutrition/Amino Acids/Dextrose/ Fat Emulsion Intravenous 1,400 ml @ 58.333 mls/ hr TPN CONT IV Last administered on 07/21/19at 22:45; Start 07/21/19 at 22:00; Stop 07/22/19 at 21:59; Status DC Sodium Chloride 1,000 ml @ 1,000 mls/hr Q1H PRN IV hypotension; Start 07/22/19 at 07:30; Stop 07/22/19 at 13:29; Status DC Albumin Human 200 ml @ 200 mls/hr 1X PRN PRN IV Hypotension Last administered on 07/22/19at 09:36; Start 07/22/19 at 07:30; Stop 07/22/19 at 13:29; Status DC Sodium Chloride (Normal Saline Flush) 10 ml 1X PRN PRN IV AP catheter pack; Start 07/22/19 at 07:30; Stop 07/22/19 at 21:29; Status DC Sodium Chloride (Normal Saline Flush) 10 ml 1X PRN PRN IV FURNITURE CRATER catheter pack; Start 07/22/19 at 07:30; Stop 07/23/19 at 07:29; Status DC Sodium Chloride 1,000 ml @ 400 mls/hr Q2H30M PRN IV PATENCY; Start 07/22/19 at 07:30; Stop 07/22/19 at 19:29; Status DC Info (PHARMACY MONITORING -- do not chart) 1 each PRN DAILY PRN MC SEE COMMENTS; Start 07/22/19 at 07:30; Stop 07/22/19 at 13:02; Status DC Info (PHARMACY MONITORING -- do not chart) 1 each PRN DAILY PRN MC SEE COMMENTS; Start 07/22/19 at 07:30; Stop 07/24/19 at 12:45; Status DC Sodium Chloride 90 meq/Potassium Chloride 15 meq/ Potassium Phosphate 10 mmol/ Magnesium Sulfate 8 meq/Calcium Gluconate 15 meq/ Multivitamins 10 ml/Chromium/ Copper/Manganese/ Seleni/Zn 0.5 ml/ Insulin Human Regular 25 unit/ Total Parenteral Nutrition/Amino Acids/Dextrose/ Fat Emulsion Intravenous 1,400 ml @ 58.333 mls/ hr TPN CONT IV Last administered on 07/22/19at 22:19; Start 07/22/19 at 22:00; Stop 07/23/19 at 21:59; Status DC Heparin Sodium (Porcine) (Heparin Sodium) 5,000 unit Q12HR SQ Last administered on 08/14/19at 08:59; Start 07/22/19 at 21:00; Stop 08/14/19 at 10:05; Status DC Ondansetron HCl (Zofran) 4 mg PRN Q6HRS PRN IV NAUSEA/VOMITING; Start 07/25/19 at 07:00; Stop 07/26/19 at 06:59; Status DC Fentanyl Citrate (Fentanyl 2ml Vial) 25 mcg PRN Q5MIN PRN IV MILD PAIN 1-3; Start 07/25/19 at 07:00; Stop 07/26/19 at 06:59; Status DC Fentanyl Citrate (Fentanyl 2ml Vial) 50 mcg PRN Q5MIN PRN IV MODERATE TO SEVERE PAIN; Start 07/25/19 at 07:00; Stop 07/26/19 at 06:59; Status DC Ringer's Solution 1,000 ml @ 30 mls/hr Q24H IV ; Start 07/25/19 at 07:00; Stop 07/25/19 at 18:59; Status DC Lidocaine HCl (Xylocaine-Mpf 1% 2ml Vial) 2 ml PRN 1X PRN ID PRIOR TO IV START; Start 07/25/19 at 07:00; Stop 07/26/19 at 06:59; Status DC Prochlorperazine Edisylate (Compazine) 5 mg PACU PRN PRN IV NAUSEA, MRX1; Start 07/25/19 at 07:00; Stop 07/26/19 at 06:59; Status DC Sodium Chloride 1,000 ml @ 1,000 mls/hr Q1H PRN IV hypotension; Start 07/23/19 at 09:10; Stop 07/23/19 at 15:09; Status DC Albumin Human 200 ml @ 200 mls/hr 1X PRN PRN IV Hypotension Last administered on 07/23/19at 10:10; Start 07/23/19 at 09:15; Stop 07/23/19 at 15:14; Status DC Sodium Chloride 1,000 ml @ 400 mls/hr Q2H30M PRN IV PATENCY; Start 07/23/19 at 09:10; Stop 07/23/19 at 21:09; Status DC Info (PHARMACY MONITORING -- do not chart) 1 each PRN DAILY PRN MC SEE COMMENTS; Start 07/23/19 at 09:15; Stop 07/24/19 at 12:45; Status DC Info (PHARMACY MONITORING -- do not chart) 1 each PRN DAILY PRN MC SEE COMMENTS; Start 07/23/19 at 09:15; Stop 07/24/19 at 12:45; Status DC Sodium Chloride 90 meq/Potassium Chloride 15 meq/ Potassium Phosphate 10 mmol/ Magnesium Sulfate 8 meq/Calcium Gluconate 15 meq/ Multivitamins 10 ml/Chromium/ Copper/Manganese/ Seleni/Zn 0.5 ml/ Insulin Human Regular 25 unit/ Total Parenteral Nutrition/Amino Acids/Dextrose/ Fat Emulsion Intravenous 1,400 ml @ 58.333 mls/ hr TPN CONT IV Last administered on 07/23/19at 22:10; Start 07/23/19 at 22:00; Stop 07/24/19 at 21:59; Status DC Magnesium Sulfate 50 ml @ 25 mls/hr PRN DAILY PRN IV for Mag < 1.7 on am labs Last administered on 08/08/19at 17:27; Start 07/24/19 at 09:15 Sodium Chloride 90 meq/Potassium Chloride 15 meq/ Potassium Phosphate 10 mmol/ Magnesium Sulfate 8 meq/Calcium Gluconate 15 meq/ Multivitamins 10 ml/Chromium/ Copper/Manganese/ Seleni/Zn 0.5 ml/ Insulin Human Regular 25 unit/ Total Parenteral Nutrition/Amino Acids/Dextrose/ Fat Emulsion Intravenous 1,400 ml @ 58.333 mls/ hr TPN CONT IV Last administered on 07/24/19at 21:20; Start 07/24/19 at 22:00; Stop 07/25/19 at 21:59; Status DC Sodium Chloride 1,000 ml @ 1,000 mls/hr Q1H PRN IV hypotension; Start 07/24/19 at 12:23; Stop 07/24/19 at 18:22; Status DC Albumin Human 200 ml @ 200 mls/hr 1X ONCE IV Last administered on 07/24/19at 13:34; Start 07/24/19 at 12:30; Stop 07/24/19 at 13:29; Status DC Diphenhydramine HCl (Benadryl) 25 mg 1X PRN PRN IV ITCHING; Start 07/24/19 at 12:30; Stop 07/25/19 at 12:29; Status DC Diphenhydramine HCl (Benadryl) 25 mg 1X PRN PRN IV ITCHING; Start 07/24/19 at 12:30; Stop 07/25/19 at 12:29; Status DC Info (PHARMACY MONITORING -- do not chart) 1 each PRN DAILY PRN MC SEE COMMENTS; Start 07/24/19 at 12:30; Status Cancel Bupivacaine HCl/ Epinephrine Bitart (Sensorcain-Epi 0.5%-1:[id number] Mpf) 30 ml STK-MED ONCE .ROUTE Last administered on 07/25/19at 11:44; Start 07/25/19 at 11:00; Stop 07/25/19 at 11:01; Status DC Cellulose (Surgicel Fibrillar 1x2) 1 each STK-MED ONCE .ROUTE ; Start 07/25/19 at 11:00; Stop 07/25/19 at 11:01; Status DC Sodium Chloride 90 meq/Potassium Chloride 15 meq/ Potassium Phosphate 10 mmol/ Magnesium Sulfate 12 meq/Calcium Gluconate 15 meq/ Multivitamins 10 ml/Chromium/ Copper/Manganese/ Seleni/Zn 0.5 ml/ Insulin Human Regular 25 unit/ Total Parenteral Nutrition/Amino Acids/Dextrose/ Fat Emulsion Intravenous 1,400 ml @ 58.333 mls/ hr TPN CONT IV Last administered on 07/25/19at 22:24; Start 07/25/19 at 22:00; Stop 07/26/19 at 21:59; Status DC Propofol 20 ml @ As Directed STK-MED ONCE IV ; Start 07/25/19 at 11:07; Stop 07/25/19 at 11:07; Status DC Cellulose (Surgicel Hemostat 4x8) 1 each STK-MED ONCE .ROUTE Last administered on 07/25/19at 11:44; Start 07/25/19 at 11:55; Stop 07/25/19 at 11:56; Status DC Sevoflurane (Ultane) 60 ml STK-MED ONCE IH ; Start 07/25/19 at 12:46; Stop 07/25/19 at 12:46; Status DC Sodium Chloride 1,000 ml @ 1,000 mls/hr Q1H PRN IV hypotension; Start 07/25/19 at 13:51; Stop 07/25/19 at 19:50; Status DC Albumin Human 200 ml @ 200 mls/hr 1X PRN PRN IV Hypotension Last administered on 07/25/19at 14:51; Start 07/25/19 at 14:00; Stop 07/25/19 at 19:59; Status DC Diphenhydramine HCl (Benadryl) 25 mg 1X PRN PRN IV ITCHING; Start 07/25/19 at 14:00; Stop 07/26/19 at 13:59; Status DC Diphenhydramine HCl (Benadryl) 25 mg 1X PRN PRN IV ITCHING; Start 07/25/19 at 14:00; Stop 07/26/19 at 13:59; Status DC Sodium Chloride 1,000 ml @ 400 mls/hr Q2H30M PRN IV PATENCY; Start 07/25/19 at 13:51; Stop 07/26/19 at 01:50; Status DC Info (PHARMACY MONITORING -- do not chart) 1 each PRN DAILY PRN MC SEE COMMENTS; Start 07/25/19 at 14:00; Stop 07/28/19 at 08:16; Status DC Heparin Sodium (Porcine) (Hep Lock Adult) 500 unit STK-MED ONCE IVP ; Start 07/26/19 at 09:29; Stop 07/26/19 at 09:30; Status DC Sodium Chloride 1,000 ml @ 1,000 mls/hr Q1H PRN IV hypotension; Start 07/26/19 at 10:43; Stop 07/26/19 at 16:42; Status DC Sodium Chloride 1,000 ml @ 400 mls/hr Q2H30M PRN IV PATENCY; Start 07/26/19 at 10:43; Stop 07/26/19 at 22:42; Status DC Info (PHARMACY MONITORING -- do not chart) 1 each PRN DAILY PRN MC SEE COMMENTS; Start 07/26/19 at 10:45; Status UNV Info (PHARMACY MONITORING -- do not chart) 1 each PRN DAILY PRN MC SEE COMMENTS; Start 07/26/19 at 10:45; Status UNV Sodium Chloride 90 meq/Potassium Chloride 15 meq/ Magnesium Sulfate 12 meq/Calcium Gluconate 15 meq/ Multivitamins 10 ml/Chromium/ Copper/Manganese/ Seleni/Zn 0.5 ml/ Insulin Human Regular 25 unit/ Total Parenteral Nutrition/Amino Acids/Dextrose/ Fat Emulsion Intravenous 1,400 ml @ 58.333 mls/ hr TPN CONT IV Last administered on 07/26/19at 22:13; Start 07/26/19 at 22:00; Stop 07/27/19 at 21:59; Status DC Sodium Chloride 1,000 ml @ 1,000 mls/hr Q1H PRN IV hypotension; Start 07/27/19 at 07:50; Stop 07/27/19 at 13:49; Status DC Albumin Human 200 ml @ 200 mls/hr 1X ONCE IV ; Start 07/27/19 at 08:00; Stop 07/27/19 at 08:53; Status DC Diphenhydramine HCl (Benadryl) 25 mg 1X PRN PRN IV ITCHING; Start 07/27/19 at 08:00; Stop 07/28/19 at 07:59; Status DC Diphenhydramine HCl (Benadryl) 25 mg 1X PRN PRN IV ITCHING; Start 07/27/19 at 08:00; Stop 07/28/19 at 07:59; Status DC Info (PHARMACY MONITORING -- do not chart) 1 each PRN DAILY PRN MC SEE COMMENTS; Start 07/27/19 at 08:00; Stop 07/28/19 at 08:16; Status DC Albumin Human 50 ml @ 50 mls/hr 1X ONCE IV ; Start 07/27/19 at 08:53; Stop 07/27/19 at 08:56; Status DC Albumin Human 200 ml @ 50 mls/hr PRN 1X PRN IV HYPOTENSION Last administered on 08/02/19at 11:54; Start 07/27/19 at 09:00 Meropenem 500 mg/ Sodium Chloride 50 ml @ 100 mls/hr Q12H IV Last administered on 08/16/19at 10:45; Start 07/27/19 at 10:00; Stop 08/16/19 at 12:37; Status DC Sodium Chloride 90 meq/Magnesium Sulfate 12 meq/ Calcium Gluconate 15 meq/ Multivitamins 10 ml/Chromium/ Copper/Manganese/ Seleni/Zn 0.5 ml/ Insulin Human Regular 25 unit/ Total Parenteral Nutrition/Amino Acids/Dextrose/ Fat Emulsion Intravenous 1,400 ml @ 58.333 mls/ hr TPN CONT IV Last administered on 07/27/19at 21:41; Start 07/27/19 at 22:00; Stop 07/28/19 at 21:59; Status DC Sodium Chloride 1,000 ml @ 1,000 mls/hr Q1H PRN IV hypotension; Start 07/28/19 at 07:58; Stop 07/28/19 at 13:57; Status DC Albumin Human 200 ml @ 200 mls/hr 1X PRN PRN IV Hypotension Last administered on 07/28/19at 09:30; Start 07/28/19 at 08:00; Stop 07/28/19 at 13:59; Status DC Sodium Chloride 1,000 ml @ 400 mls/hr Q2H30M PRN IV PATENCY; Start 07/28/19 at 07:58; Stop 07/28/19 at 19:57; Status DC Info (PHARMACY MONITORING -- do not chart) 1 each PRN DAILY PRN MC SEE COMMENTS; Start 07/28/19 at 08:00; Status Cancel Info (PHARMACY MONITORING -- do not chart) 1 each PRN DAILY PRN MC SEE COMMENTS; Start 07/28/19 at 08:15; Status UNV Sodium Chloride 90 meq/Potassium Phosphate 5 mmol/ Magnesium Sulfate 12 meq/Calcium Gluconate 15 meq/ Multivitamins 10 ml/Chromium/ Copper/Manganese/ Seleni/Zn 0.5 ml/ Insulin Human Regular 30 unit/ Total Parenteral Nutrition/Amino Acids/Dextrose/ Fat Emulsion Intravenous 1,400 ml @ 58.333 mls/ hr TPN CONT IV Last administered on 07/28/19at 22:08; Start 07/28/19 at 22:00; Stop 07/29/19 at 21:59; Status DC Linezolid/Dextrose 300 ml @ 300 mls/hr Q12HR IV Last administered on 08/08/19at 20:40; Start 07/29/19 at 11:00; Stop 08/09/19 at 08:10; Status DC Sodium Chloride 90 meq/Potassium Phosphate 15 mmol/ Magnesium Sulfate 12 meq/Calcium Gluconate 15 meq/ Multivitamins 10 ml/Chromium/ Copper/Manganese/ Seleni/Zn 0.5 ml/ Insulin Human Regular 30 unit/ Total Parenteral Nutrition/Amino Acids/Dextrose/ Fat Emulsion Intravenous 1,400 ml @ 58.333 mls/ hr TPN CONT IV Last administered on 07/29/19at 21:49; Start 07/29/19 at 22:00; Stop 07/30/19 at 21:59; Status DC Sodium Chloride 90 meq/Potassium Phosphate 15 mmol/ Magnesium Sulfate 12 meq/Calcium Gluconate 15 meq/ Multivitamins 10 ml/Chromium/ Copper/Manganese/ Seleni/Zn 0.5 ml/ Insulin Human Regular 40 unit/ Total Parenteral Nutrition/Ami no Acids/Dextrose/ Fat Emulsion Intravenous 1,400 ml @ 58.333 mls/ hr TPN CONT IV Last administered on 07/30/19at 21:21; Start 07/30/19 at 22:00; Stop 07/31/19 at 21:59; Status DC Sodium Chloride 1,000 ml @ 1,000 mls/hr Q1H PRN IV hypotension; Start 07/30/19 at 13:26; Stop 07/30/19 at 19:25; Status DC Albumin Human 200 ml @ 200 mls/hr 1X PRN PRN IV Hypotension Last administered on 07/30/19at 15:00; Start 07/30/19 at 13:30; Stop 07/30/19 at 19:29; Status DC Sodium Chloride (Normal Saline Flush) 10 ml 1X PRN PRN IV AP catheter pack; Start 07/30/19 at 13:30; Stop 07/31/19 at 13:29; Status DC Sodium Chloride (Normal Saline Flush) 10 ml 1X PRN PRN IV FURNITURE CRATER catheter pack; Start 07/30/19 at 13:30; Stop 07/31/19 at 13:29; Status DC Sodium Chloride 1,000 ml @ 400 mls/hr Q2H30M PRN IV PATENCY; Start 07/30/19 at 13:26; Stop 07/31/19 at 01:25; Status DC Info (PHARMACY MONITORING -- do not chart) 1 each PRN DAILY PRN MC SEE COMMENTS; Start 07/30/19 at 13:30; Stop 07/30/19 at 13:33; Status DC Info (PHARMACY MONITORING -- do not chart) 1 each PRN DAILY PRN MC SEE COMMENTS; Start 07/30/19 at 13:30; Stop 07/30/19 at 13:34; Status DC Sodium Chloride 90 meq/Potassium Phosphate 19 mmol/ Magnesium Sulfate 12 meq/Calcium Gluconate 15 meq/ Multivitamins 10 ml/Chromium/ Copper/Manganese/ Seleni/Zn 0.5 ml/ Insulin Human Regular 40 unit/ Total Parenteral Nutrition/Amino Acids/Dextrose/ Fat Emulsion Intravenous 1,400 ml @ 58.333 mls/ hr TPN CONT IV Last administered on 07/31/19at 21:54; Start 07/31/19 at 22:00; Stop 08/01/19 at 21:59; Status DC Sodium Chloride 1,000 ml @ 1,000 mls/hr Q1H PRN IV hypotension; Start 08/01/19 at 09:35; Stop 08/01/19 at 15:34; Status DC Albumin Human 200 ml @ 200 mls/hr 1X PRN PRN IV Hypotension; Start 08/01/19 at 09:45; Stop 08/01/19 at 15:44; Status DC Diphenhydramine HCl (Benadryl) 25 mg 1X PRN PRN IV ITCHING; Start 08/01/19 at 09:45; Stop 08/02/19 at 09:44; Status DC Diphenhydramine HCl (Benadryl) 25 mg 1X PRN PRN IV ITCHING; Start 08/01/19 at 09:45; Stop 08/02/19 at 09:44; Status DC Sodium Chloride 1,000 ml @ 400 mls/hr Q2H30M PRN IV PATENCY; Start 08/01/19 at 09:35; Stop 08/01/19 at 21:34; Status DC Info (PHARMACY MONITORING -- do not chart) 1 each PRN DAILY PRN MC SEE COMMENTS; Start 08/01/19 at 09:45; Status Cancel Sodium Chloride 100 meq/Potassium Phosphate 19 mmol/ Magnesium Sulfate 12 meq/Calcium Gluconate 15 meq/ Multivitamins 10 ml/Chromium/ Copper/Manganese/ Seleni/Zn 0.5 ml/ Insulin Human Regular 40 unit/ Potassium Chloride 20 meq/ Total Parenteral Nutrition/Amino Acids/Dextrose/ Fat Emulsion Intravenous 1,400 ml @ 58.333 mls/ hr TPN CONT IV Last administered on 08/01/19at 22:02; Start 08/01/19 at 22:00; Stop 08/02/19 at 21:59; Status DC Furosemide (Lasix) 40 mg 1X ONCE IVP Last administered on 08/01/19at 14:39; St art 08/01/19 at 14:30; Stop 08/01/19 at 14:31; Status DC Metronidazole 100 ml @ 100 mls/hr Q8HRS IV Last administered on 08/09/19at 06:04; Start 08/02/19 at 10:00; Stop 08/09/19 at 08:10; Status DC Sodium Chloride 1,000 ml @ 1,000 mls/hr Q1H PRN IV hypotension; Start 08/02/19 at 08:00; Stop 08/02/19 at 13:59; Status DC Albumin Human 200 ml @ 200 mls/hr 1X PRN PRN IV Hypotension; Start 08/02/19 at 08:00; Stop 08/02/19 at 13:59; Status DC Sodium Chloride 1,000 ml @ 400 mls/hr Q2H30M PRN IV PATENCY; Start 08/02/19 at 08:00; Stop 08/02/19 at 19:59; Status DC Info (PHARMACY MONITORING -- do not chart) 1 each PRN DAILY PRN MC SEE COMMENTS; Start 08/02/19 at 11:30; Status UNV Info (PHARMACY MONITORING -- do not chart) 1 each PRN DAILY PRN MC SEE COMMENT S; Start 08/02/19 at 11:30; Stop 08/04/19 at 12:13; Status DC Sodium Chloride 100 meq/Potassium Phosphate 19 mmol/ Magnesium Sulfate 12 meq/Calcium Gluconate 15 meq/ Multivitamins 10 ml/Chromium/ Copper/Manganese/ Seleni/Zn 0.5 ml/ Insulin Human Regular 40 unit/ Potassium Chloride 20 meq/ Total Parenteral Nutrition/Amino Acids/Dextrose/ Fat Emulsion Intravenous 1,400 ml @ 58.333 mls/ hr TPN CONT IV Last administered on 08/02/19at 21:52; Start 08/02/19 at 22:00; Stop 08/03/19 at 21:59; Status DC Sodium Chloride (Normal Saline Flush) 10 ml QSHIFT PRN IV AFTER MEDS AND BLOOD DRAWS; Start 08/02/19 at 15:00 Sodium Chloride (Normal Saline Flush) 10 ml PRN Q5MIN PRN IV AFTER MEDS AND BLOOD DRAWS; Start 08/02/19 at 15:00 Sodium Chloride (Normal Saline Flush) 20 ml PRN Q5MIN PRN IV AFTER MEDS AND BLOOD DRAWS; Start 08/02/19 at 15:00 Sodium Chloride 100 meq/Potassium Phosphate 19 mmol/ Magnesium Sulfate 12 meq/Calcium Gluconate 15 meq/ Multivitamins 10 ml/Chromium/ Copper/Manganese/ Seleni/Zn 0.5 ml/ Insulin Human Regular 40 unit/ Potassium Chloride 20 meq/ Total Parenteral Nutrition/Amino Acids/Dextrose/ Fat Emulsion Intravenous 1,400 ml @ 58.333 mls/ hr TPN CONT IV Last administered on 08/03/19at 21:20; Start 08/03/19 at 22:00; Stop 08/04/19 at 21:59; Status DC Lidocaine HCl (Buffered Lidocaine 1%) 3 ml STK-MED ONCE .ROUTE ; Start 08/03/19 at 13:16; Stop 08/03/19 at 13:16; Status DC Lidocaine HCl (Buffered Lidocaine 1%) 6 ml 1X ONCE INJ Last administered on 08/03/19at 13:45; Start 08/03/19 at 13:30; Stop 08/03/19 at 13:31; Status DC Albumin Human 100 ml @ 100 mls/hr 1X ONCE IV Last administered on 08/03/19at 15:41; Start 08/03/19 at 15:00; Stop 08/03/19 at 15:59; Status DC Albumin Human 50 ml @ 50 mls/hr 1X ONCE IV Last administered on 08/03/19at 15:00; Start 08/03/19 at 15:00; Stop 08/03/19 at 15:59; Status DC Info (PHARMACY MONITORING -- do not chart) 1 each PRN DAILY PRN MC SEE COMMENTS; Start 08/04/19 at 11:30; Status Cancel Info (PHARMACY MONITORING -- do not chart) 1 each PRN DAILY PRN MC SEE C OMMENTS; Start 08/04/19 at 11:30; Status UNV Sodium Chloride 100 meq/Potassium Phosphate 10 mmol/ Magnesium Sulfate 12 meq/Calcium Gluconate 15 meq/ Multivitamins 10 ml/Chromium/ Copper/Manganese/ Seleni/Zn 0.5 ml/ Insulin Human Regular 35 unit/ Potassium Chloride 20 meq/ Total Parenteral Nutrition/Amino Acids/Dextrose/ Fat Emulsion Intravenous 1,400 ml @ 58.333 mls/ hr TPN CONT IV Last administered on 08/04/19at 22:10; Start 08/04/19 at 22:00; Stop 08/05/19 at 21:59; Status DC Sodium Chloride 100 meq/Potassium Phosphate 5 mmol/ Magnesium Sulfate 12 meq/Calcium Gluconate 15 meq/ Multivitamins 10 ml/Chromium/ Copper/Manganese/ Se dinorah/Zn 0.5 ml/ Insulin Human Regular 35 unit/ Potassium Chloride 20 meq/ Total Parenteral Nutrition/Amino Acids/Dextrose/ Fat Emulsion Intravenous 1,400 ml @ 58.333 mls/ hr TPN CONT IV Last administered on 08/05/19at 22:59; Start 08/05/19 at 22:00; Stop 08/06/19 at 21:59; Status DC Sodium Chloride 1,000 ml @ 1,000 mls/hr Q1H PRN IV hypotension; Start 08/06/19 at 08:27; Stop 08/06/19 at 14:26; Status DC Albumin Human 200 ml @ 200 mls/hr 1X PRN PRN IV Hypotension Last administered on 08/06/19at 09:18; Start 08/06/19 at 08:30; Stop 08/06/19 at 14:29; Status DC Sodium Chloride 1,000 ml @ 400 mls/hr Q2H30M PRN IV PATENCY; Start 08/06/19 at 08:27; Stop 08/06/19 at 20:26; Status DC Info (PHARMACY MONITORING -- do not chart) 1 each PRN DAILY PRN MC SEE CO MMENTS; Start 08/06/19 at 08:30; Status Cancel Info (PHARMACY MONITORING -- do not chart) 1 each PRN DAILY PRN MC SEE COMMENTS ; Start 08/06/19 at 08:30; Stop 08/14/19 at 13:10; Status DC Sodium Chloride 100 meq/Potassium Chloride 40 meq/ Magnesium Sulfate 15 meq/Calcium Gluconate 15 meq/ Multivitamins 10 ml/Chromium/ Copper/Manganese/ Seleni/Zn 0.5 ml/ Insulin Human Regular 35 unit/ Total Parenteral Nutrition/Amino Acids/Dextrose/ Fat Emulsion Intravenous 1,400 ml @ 58.333 mls/ hr TPN CONT IV Last administered on 08/06/19at 22:00; Start 08/06/19 at 22:00; Stop 08/07/19 at 21:59; Status DC Potassium Chloride/Water 100 ml @ 100 mls/hr 1X ONCE IV Last administered on 08/06/19at 17:28; Start 08/06/19 at 14:45; Stop 08/06/19 at 15:44; Status DC Sodium Chloride 100 meq/Potassium Chloride 40 meq/ Magnesium Sulfate 15 meq/Calcium Gluconate 15 meq/ Multivitamins 10 ml/Chromium/ Copper/Manganese/ Seleni/Zn 0.5 ml/ Insulin Human Regular 35 unit/ Total Parenteral Nutrition/Amino Acids/Dextrose/ Fat Emulsion Intravenous 1,400 ml @ 58.333 mls/ hr TPN CONT IV Last administered on 08/07/19at 22:46; Start 08/07/19 at 22:00; Stop 08/08/19 at 21:59; Status DC Sodium Chloride 100 meq/Potassium Chloride 40 meq/ Magnesium Sulfate 20 meq/Calcium Gluconate 15 meq/ Multivitamins 10 ml/Chromium/ Copper/Manganese/ Seleni/Zn 0.5 ml/ Insulin Human Regular 35 unit/ Total Parenteral Nutrition/Amino Acids/Dextrose/ Fat Emulsion Intravenous 1,400 ml @ 58.333 mls/ hr TPN CONT IV Last administered on 08/08/19at 22:31; Start 08/08/19 at 22:00; Stop 08/09/19 at 21:59; Status DC Fentanyl Citrate (Fentanyl 2ml Vial) 50 mcg PRN Q2HR PRN IVP PAIN Last administered on 08/15/19at 13:32; Start 08/08/19 at 21:00; Stop 08/16/19 at 12:53; Status DC Fentanyl Citrate (Fentanyl 2ml Vial) 25 mcg PRN Q2HR PRN IVP PAIN; Start 08/08/19 at 21:00; Stop 08/16/19 at 12:54; Status DC Enoxaparin Sodium (Lovenox 100mg Syringe) 100 mg Q12HR SQ ; Start 08/09/19 at 21:00; Status UNV Amino Acids/ Glycerin/ Electrolytes 1,000 ml @ 75 mls/hr [id number] IV ; Start 08/08/19 at 21:15; Status UNV Sodium Chloride 1,000 ml @ 1,000 mls/hr Q1H PRN IV hypotension; Start 08/09/19 at 07:56; Stop 08/09/19 at 13:55; Status DC Albumin Human 200 ml @ 200 mls/hr 1X PRN PRN IV Hypotension Last administered on 08/09/19at 08:40; Start 08/09/19 at 08:00; Stop 08/09/19 at 13:59; Status DC Sodium Chloride 1,000 ml @ 400 mls/hr Q2H30M PRN IV PATENCY; Start 08/09/19 at 07:56; Stop 08/09/19 at 19:55; Status DC Info (PHARMACY MONITORING -- do not chart) 1 each PRN DAILY PRN MC SEE COMMENTS; Start 08/09/19 at 08:00; Status UNV Info (PHARMACY MONITORING -- do not chart) 1 each PRN DAILY PRN MC SEE COMMENTS; Start 08/09/19 at 08:00; Status UNV Daptomycin 430 mg/ Sodium Chloride 50 ml @ 100 mls/hr Q24H IV Last administered on 08/09/19at 12:35; Start 08/09/19 at 09:00; Stop 08/09/19 at 12:49; Status DC Sodium Chloride 100 meq/Potassium Chloride 40 meq/ Magnesium Sulfate 20 meq/Calcium Gluconate 15 meq/ Multivitamins 10 ml/Chromium/ Copper/Manganese/ Seleni/Zn 0.5 ml/ Insulin Human Regular 35 unit/ Total Parenteral Nutrition/Amino Acids/Dextrose/ Fat Emulsion Intravenous 1,400 ml @ 58.333 mls/ hr TPN CONT IV Last administered on 08/09/19at 21:26; Start 08/09/19 at 22:00; Stop 08/10/19 at 21:59; Status DC Daptomycin 430 mg/ Sodium Chloride 50 ml @ 100 mls/hr Q48H IV ; Start 08/11/19 at 09:00; Stop 08/10/19 at 11:55; Status DC Sodium Chloride 100 meq/Potassium Chloride 40 meq/ Magnesium Sulfate 20 meq/Calcium Gluconate 15 meq/ Multivitamins 10 ml/Chromium/ Copper/Manganese/ Seleni/Zn 0.5 ml/ Insulin Human Regular 35 unit/ Total Parenteral Nutrition/Amino Acids/Dextrose/ Fat Emulsion Intravenous 1,400 ml @ 58.333 mls/ hr TPN CONT IV Last administered on 08/10/19at 22:27; Start 08/10/19 at 22:00; Stop 08/11/19 at 21:59; Status DC Daptomycin 430 mg/ Sodium Chloride 50 ml @ 100 mls/hr Q24H IV Last administered on 08/12/19at 15:07; Start 08/10/19 at 13:00; Stop 08/13/19 at 13:15; Status DC Sodium Chloride 100 meq/Potassium Chloride 40 meq/ Magnesium Sulfate 20 meq/Calcium Gluconate 10 meq/ Multivitamins 10 ml/Chromium/ Copper/Manganese/ Seleni/Zn 0.5 ml/ Insulin Human Regular 35 unit/ Total Parenteral Nutrition /Amino Acids/Dextrose/ Fat Emulsion Intravenous 1,400 ml @ 58.333 mls/ hr TPN CONT IV Last administered on 08/12/19at 00:06; Start 08/11/19 at 22:00; Stop 08/12/19 at 21:59; Status DC Alteplase, Recombinant (Cathflo For Central Catheter Clearance) 1 mg 1X ONCE INT CAT Last administered on 08/12/19at 11:44; Start 08/12/19 at 10:45; Stop 08/12/19 at 10:46; Status DC Ondansetron HCl (Zofran) 4 mg PRN Q6HRS PRN IV NAUSEA/VOMITING; Start 08/15/19 at 07:00; Stop 08/16/19 at 06:59; Status DC Fentanyl Citrate (Fentanyl 2ml Vial) 25 mcg PRN Q5MIN PRN IV MILD PAIN 1-3; Start 08/15/19 at 07:00; Stop 08/16/19 at 06:59; Status DC Fentanyl Citrate (Fentanyl 2ml Vial) 50 mcg PRN Q5MIN PRN IV MODERATE TO SEVERE PAIN Last administered on 08/15/19at 10:17; Start 08/15/19 at 07:00; Stop 08/16/19 at 06:59; Status DC Ringer's Solution 1,000 ml @ 30 mls/hr Q24H IV ; Start 08/15/19 at 07:00; Stop 08/15/19 at 18:59; Status DC Lidocaine HCl (Xylocaine-Mpf 1% 2ml Vial) 2 ml PRN 1X PRN ID PRIOR TO IV START; Start 08/15/19 at 07:00; Stop 08/16/19 at 06:59; Status DC Prochlorperazine Edisylate (Compazine) 5 mg PACU PRN PRN IV NAUSEA, MRX1; Start 08/15/19 at 07:00; Stop 08/16/19 at 06:59; Status DC Sodium Acetate 50 meq/Potassium Acetate 55 meq/ Magnesium Sulfate 20 meq/Calcium Gluconate 10 meq/ Multivitamins 10 ml/Chromium/ Copper/Manganese/ Seleni/Zn 0.5 ml/ Insulin Human Regular 35 unit/ Total Parenteral Nutrition/Amino Acids/Dextrose/ Fat Emulsion Intravenous 1,400 ml @ 58.333 mls/ hr TPN CONT IV ; Start 08/12/19 at 22:00; Stop 08/12/19 at 14:15; Status DC Sodium Acetate 50 meq/Potassium Acetate 55 meq/ Magnesium Sulfate 20 meq/Calcium Gluconate 10 meq/ Multivitamins 10 ml/Chromium/ Copper/Manganese/ Seleni/Zn 0.5 ml/ Insulin Human Regular 35 unit/ Total Parenteral Nutrition/Amino Acids/Dextrose/ Fat Emulsion Intravenous 1,800 ml @ 75 mls/hr TPN CONT IV Last administered on 08/12/19at 22:38; Start 08/12/19 at 22:00; Stop 08/13/19 at 21:59; Status DC Sodium Chloride 1,000 ml @ 1,000 mls/hr Q1H PRN IV hypotension; Start 08/12/19 at 15:31; Stop 08/12/19 at 21:30; Status DC Diphenhydramine HCl (Benadryl) 25 mg 1X PRN PRN IV ITCHING; Start 08/12/19 at 15:45; Stop 08/13/19 at 15:44; Status DC Diphenhydramine HCl (Benadryl) 25 mg 1X PRN PRN IV ITCHING; Start 08/12/19 at 15:45; Stop 08/13/19 at 15:44; Status DC Sodium Chloride 1,000 ml @ 400 mls/hr Q2H30M PRN IV PATENCY; Start 08/12/19 at 15:31; Stop 08/13/19 at 03:30; Status DC Info (PHARMACY MONITORING -- do not chart) 1 each PRN DAILY PRN MC SEE COMMENTS; Start 08/12/19 at 15:45 Sodium Acetate 50 meq/Potassium Acetate 55 meq/ Magnesium Sulfate 20 meq/Calcium Gluconate 10 meq/ Multivitamins 10 ml/Chromium/ Copper/Manganese/ Seleni/Zn 0.5 ml/ Insulin Human Regular 35 unit/ Total Parenteral Nutrition/Amino Acids/Dextro se/ Fat Emulsion Intravenous 1,800 ml @ 75 mls/hr TPN CONT IV Last administered on 08/13/19at 22:03; Start 08/13/19 at 22:00; Stop 08/14/19 at 21:59; Status DC Daptomycin 430 mg/ Sodium Chloride 50 ml @ 100 mls/hr Q24H IV Last administered on 08/18/19at 13:00; Start 08/13/19 at 13:00; Stop 08/18/19 at 20:58; Status DC Heparin Sodium (Porcine) 1000 unit/Sodium Chloride 1,001 ml @ 1,001 mls/hr 1X ONCE IRR ; Start 08/15/19 at 06:00; Stop 08/15/19 at 06:59; Status DC Potassium Acetate 55 meq/Magnesium Sulfate 20 meq/ Calcium Gluconate 10 meq/ Multivitamins 10 ml/Chromium/ Copper/Manganese/ Seleni/Zn 0.5 ml/ Insulin Human Regular 35 unit/ Total Parenteral Nutrition/Amino Acids/Dextrose/ Fat Emulsion Intravenous 1,920 ml @ 80 mls/hr TPN CONT IV Last administered on 08/14/19at 22:10; Start 08/14/19 at 22:00; Stop 08/15/19 at 21:59; Status DC Dexamethasone Sodium Phosphate (Decadron) 4 mg STK-MED ONCE .ROUTE ; Start 08/15/19 at 10:56; Stop 08/15/19 at 10:57; Status DC Ondansetron HCl (Zofran) 4 mg STK-MED ONCE .ROUTE ; Start 08/15/19 at 10:56; Stop 08/15/19 at 10:57; Status DC Rocuronium Coy (Zemuron) 50 mg STK-MED ONCE .ROUTE ; Start 08/15/19 at 10:56; Stop 08/15/19 at 10:57; Status DC Fentanyl Citrate (Fentanyl 2ml Vial) 100 mcg STK-MED ONCE .ROUTE ; Start 08/15/19 at 10:56; Stop 08/15/19 at 10:57; Status DC Bupivacaine HCl/ Epinephrine Bitart (Sensorcain-Epi 0.5%-1:[id number] Mpf) 30 ml STK-MED ONCE .ROUTE Last administered on 08/15/19at 12:01; Start 08/15/19 at 10:58; Stop 08/15/19 at 10:58; Status DC Cellulose (Surgicel Hemostat 2x14) 1 each STK-MED ONCE .ROUTE ; Start 08/15/19 at 10:58; Stop 08/15/19 at 10:59; Status DC Iohexol (Omnipaque 300 Mg/ml) 50 ml STK-MED ONCE .ROUTE ; Start 08/15/19 at 10:58; Stop 08/15/19 at 10:59; Status DC Cellulose (Surgicel Hemostat 4x8) 1 each STK-MED ONCE .ROUTE ; Start 08/15/19 at 10:58; Stop 08/15/19 at 10:59; Status DC Bisacodyl (Dulcolax Supp) 10 mg STK-MED ONCE .ROUTE ; Start 08/15/19 at 10:59; Stop 08/15/19 at 10:59; Status DC Heparin Sodium (Porcine) 1000 unit/Sodium Chloride 1,001 ml @ 1,001 mls/hr 1X ONCE IRR ; Start 08/15/19 at 12:00; Stop 08/15/19 at 12:59; Status DC Propofol 20 ml @ As Directed STK-MED ONCE IV ; Start 08/15/19 at 11:05; Stop 08/15/19 at 11:05; Status DC Sevoflurane (Ultane) 90 ml STK-MED ONCE IH ; Start 08/15/19 at 11:05; Stop 08/15/19 at 11:05; Status DC Sevoflurane (Ultane) 60 ml STK-MED ONCE IH ; Start 08/15/19 at 12:26; Stop 08/15/19 at 12:27; Status DC Propofol 20 ml @ As Directed STK-MED ONCE IV ; Start 08/15/19 at 12:26; Stop 08/15/19 at 12:27; Status DC Phenylephrine HCl (PHENYLEPHRINE in 0.9% NACL PF) 1 mg STK-MED ONCE IV ; Start 08/15/19 at 12:34; Stop 08/15/19 at 12:34; Status DC Heparin Sodium (Porcine) (Heparin Sodium) 5,000 unit Q12HR SQ Last administered on 08/22/19at 10:52; Start 08/15/19 at 21:00 Sodium Chloride (Normal Saline Flush) 3 ml QSHIFT PRN IV AFTER MEDS AND BLOOD DRAWS; Start 08/15/19 at 13:45 Naloxone HCl (Narcan) 0.4 mg PRN Q2MIN PRN IV SEE INSTRUCTIONS; Start 08/15/19 at 13:45 Sodium Chloride 1,000 ml @ 25 mls/hr Q24H IV Last administered on 08/21/19at 19:49; Start 08/15/19 at 13:37 Naloxone HCl (Narcan) 0.4 mg PRN Q2MIN PRN IV SEE INSTRUCTIONS; Start 08/15/19 at 14:30; Status UNV Sodium Chloride 1,000 ml @ 25 mls/hr Q24H IV ; Start 08/15/19 at 14:30; Status UNV Hydromorphone HCl 30 ml @ 0 mls/hr CONT PRN PRN IV PER PROTOCOL Last administered on 08/20/19at 16:08; Start 08/15/19 at 14:30; Stop 08/22/19 at 08:55; Status DC Potassium Acetate 55 meq/Magnesium Sulfate 20 meq/ Calcium Gluconate 10 meq/ Mu ltivitamins 10 ml/Chromium/ Copper/Manganese/ Seleni/Zn 0.5 ml/ Insulin Human Regular 35 unit/ Total Parenteral Nutrition/Amino Acids/Dextrose/ Fat Emulsion Intravenous 1,920 ml @ 80 mls/hr TPN CONT IV Last administered on 08/15/19at 22:01; Start 08/15/19 at 22:00; Stop 08/16/19 at 21:59; Status DC Bumetanide (Bumex) 2 mg [id number] IV Last administered on 08/19/19at 13:50; Start 08/16/19 at 14:00; Stop 08/20/19 at 14:10; Status DC Meropenem 1 gm/ Sodium Chloride 100 ml @ 200 mls/hr Q8HRS IV Last administered on 08/22/19at 14:38; Start 08/16/19 at 14:00 Potassium Acetate 55 meq/Magnesium Sulfate 20 meq/ Calcium Gluconate 10 meq/ Multivitamins 10 ml/Chromium/ Copper/Manganese/ Seleni/Zn 0.5 ml/ Insulin Human Regular 35 unit/ Total Parenteral Nutrition/Amino Acids/Dextrose/ Fat Emulsion Intravenous 1,920 ml @ 80 mls/hr TPN CONT IV Last administered on 08/16/19at 22:02; Start 08/16/19 at 22:00; Stop 08/17/19 at 21:59; Status DC Hydromorphone HCl (Dilaudid Standard BRICKMASON) 12 mg STK-MED ONCE IV ; Start 08/15/19 at 14:35; Stop 08/16/19 at 13:53; Status DC Artificial Tears (Artificial Tears) 1 drop PRN Q15MIN PRN OU DRY EYE Last administered on 08/19/19at 12:34; Start 08/17/19 at 05:30 Hydromorphone HCl (Dilaudid Standard BRICKMASON) 12 mg STK-MED ONCE IV ; Start 08/16/19 at 12:05; Stop 08/17/19 at 09:15; Status DC Potassium Acetate 65 meq/Magnesium Sulfate 20 meq/ Calcium Gluconate 10 meq/ Multivitamins 10 ml/Chromium/ Copper/Manganese/ Seleni/Zn 0.5 ml/ Insulin Human Regular 30 unit/ Total Parenteral Nutrition/Amino Acids/Dextrose/ Fat Emulsion Intravenous 1,920 ml @ 80 mls/hr TPN CONT IV Last administered on 08/17/19at 22:22; Start 08/17/19 at 22:00; Stop 08/18/19 at 21:59; Status DC Cyclobenzaprine HCl (Flexeril) 10 mg PRN Q6HRS PRN PO MUSCLE SPASMS; Start 08/18/19 at 10:45 Potassium Acetate 55 meq/Magnesium Sulfate 20 meq/ Calcium Gluconate 10 meq/ Multivitamins 10 ml/Chromium/ Copper/Manganese/ Seleni/Zn 0.5 ml/ Insulin Human Regular 30 unit/ Total Parenteral Nutrition/Amino Acids/Dextrose/ Fat Emulsion Intravenous 1,920 ml @ 80 mls/hr TPN CONT IV Last administered on 08/19/19at 01:00; Start 08/18/19 at 22:00; Stop 08/19/19 at 21:59; Status DC Magnesium Sulfate 50 ml @ 25 mls/hr 1X ONCE IV Last administered on 08/18/19at 17:18; Start 08/18/19 at 12:45; Stop 08/18/19 at 14:44; Status DC Potassium Chloride/Water 100 ml @ 100 mls/hr 1X ONCE IV Last administered on 08/19/19at 11:27; Start 08/19/19 at 12:00; Stop 08/19/19 at 12:59; Status DC Hydromorphone HCl (Dilaudid Standard BRICKMASON) 12 mg STK-MED ONCE IV ; Start 08/17/19 at 10:50; Stop 08/19/19 at 11:02; Status DC Hydromorphone HCl (Dilaudid Standard BRICKMASON) 12 mg STK-MED ONCE IV ; Start 08/18/19 at 13:47; Stop 08/19/19 at 11:03; Status DC Potassium Acetate 30 meq/Magnesium Sulfate 20 meq/ Calcium Gluconate 10 meq/ Multivitamins 10 ml/Chromium/ Copper/Manganese/ Seleni/Zn 0.5 ml/ Insulin Human Regular 30 unit/ Potassium Chloride 30 meq/ Total Parenteral Nutrition/Amino Acids/Dextrose/ Fat Emulsion Intravenous 1,920 ml @ 80 mls/hr TPN CONT IV Last administered on 08/19/19at 22:34; Start 08/19/19 at 22:00; Stop 08/20/19 at 21:59; Status DC Potassium Chloride/Water 100 ml @ 100 mls/hr Q1H IV Last administered on 08/20/19at 13:05; Start 08/20/19 at 07:00; Stop 08/20/19 at 10:59; Status DC Magnesium Sulfate 50 ml @ 25 mls/hr 1X ONCE IV Last administered on 08/20/19at 10:34; Start 08/20/19 at 10:30; Stop 08/20/19 at 12:29; Status DC Potassium Chloride 75 meq/ Magnesium Sulfate 20 meq/Calcium Gluconate 10 meq/ Multivitamins 10 ml/Chromium/ Copper/Manganese/ Seleni/Zn 0.5 ml/ Insulin Human Regular 30 unit/ Total Parenteral Nutrition/Amino Acids/Dextrose/ Fat Emulsion Intravenous 1,920 ml @ 80 mls/hr TPN CONT IV Last administered on 08/20/19at 21:51; Start 08/20/19 at 22:00; Stop 08/21/19 at 22:00; Status DC Potassium Chloride 75 meq/ Magnesium Sulfate 20 meq/Calcium Gluconate 10 meq/ Multivitamins 10 ml/Chromium/ Copper/Manganese/ Seleni/Zn 0.5 ml/ Insulin Human Regular 25 unit/ Total Parenteral Nutrition/Amino Acids/Dextrose/ Fat Emulsion Intravenous 1,920 ml @ 80 mls/hr TPN CONT IV Last administered on 08/21/19at 22:04; Start 08/21/19 at 22:00; Stop 08/22/19 at 21:59 Hydromorphone HCl (Dilaudid) 0.4 mg PRN Q4HRS PRN IVP PAIN Last administered on 08/22/19at 10:57; Start 08/22/19 at 09:00 Micafungin Sodium 100 mg/Dextrose 100 ml @ 100 mls/hr Q24H IV Last administered on 08/22/19at 10:48; Start 08/22/19 at 11:00 Daptomycin 485 mg/ Sodium Chloride 50 ml @ 100 mls/hr Q24H IV Last administered on 08/22/19at 11:59; Start 08/22/19 at 11:00 Potassium Chloride 75 meq/ Magnesium Sulfate 15 meq/Calcium Gluconate 8 meq/ Multivitamins 10 ml/Chromium/ Copper/Manganese/ Seleni/Zn 0.5 ml/ Insulin Human Regular 25 unit/ Total Parenteral Nutrition/Amino Acids/Dextrose/ Fat Emulsion Intravenous 1,920 ml @ 80 mls/hr TPN CONT IV ; Start 08/22/19 at 22:00; Stop 08/23/19 at 21:59 Haloperidol Lactate (Haldol Inj) 3 mg 1X ONCE IVP Last administered on 08/22/19at 14:37; Start 08/22/19 at 14:30; Stop 08/22/19 at 14:31; Status DC Active Scripts Active Reported Bisoprolol Fumarate 5 Mg Tablet 10 Mg PO DAILY Vitals/I & O Vital Sign - Last 24 Hours 08/21/19 08/21/19 08/21/19 08/21/19 19:00 20:00 20:00 20:23 Temp 101.0 101.0 Pulse 113 123 Resp 23 32 B/P (MAP) 157/75 (102) 137/69 (91) Pulse Ox 96 97 96 O2 Delivery C-pap 5peep/10PS C-pap 5peep/10PS Mechanical Ventilator Ventilator 08/21/19 08/21/19 08/21/19 08/21/19 21:00 21:51 22:00 23:00 Temp 100.6 100.6 Pulse 119 113 130 Resp 28 30 42 B/P (MAP) 181/85 (117) 140/71 (94) 153/81 (105) Pulse Ox 96 96 96 97 O2 Delivery C-pap 5peep/10PS Ventilator C-pap 5peep/10PS C-pap 5peep/10PS 08/21/19 08/22/19 08/22/19 08/22/19 23:18 00:00 00:00 01:00 Temp 100.9 100.9 Pulse 118 110 Resp 31 30 B/P (MAP) 130/69 (89) 117/60 (79) Pulse Ox 96 98 98 O2 Delivery Ventilator Mechanical Ventilator C-pap 5peep/10PS C-pap 5peep/10PS 08/22/19 08/22/19 08/22/19 08/22/19 01:01 02:00 03:00 04:00 Temp 100.3 100.3 100.3 100.3 Pulse 113 100 104 Resp 34 28 32 B/P (MAP) 133/65 (87) 143/78 (99) 116/60 (78) Pulse Ox 96 97 95 98 O2 Delivery Ventilator C-pap 5peep/10PS C-pap 5peep/10PS C-pap 5peep/10PS 08/22/19 08/22/19 08/22/19 08/22/19 04:00 04:20 05:00 06:00 Pulse 100 106 Resp 35 41 B/P (MAP) 115/68 (84) 120/63 (82) Pulse Ox 97 98 96 O2 Delivery Mechanical Ventilator Ventilator C-pap 5peep/10PS C-pap 5peep/10PS 08/22/19 08/22/19 08/22/19 08/22/19 07:00 08:00 08:00 08:00 Temp 98.3 98.3 Pulse 102 100 Resp 31 29 B/P (MAP) 175/84 (114) 104/60 (75) Pulse Ox 96 97 98 O2 Delivery Ventilator Mechanical Ventilator Ventilator Ventilator 08/22/19 08/22/19 08/22/19 08/22/19 09:00 10:00 10:57 11:00 Pulse 110 104 114 Resp 36 26 45 32 B/P (MAP) 123/77 (92) 138/79 (98) Pulse Ox 98 98 98 99 O2 Delivery Ventilator Ventilator Ventilator Ventilator 08/22/19 08/22/19 08/22/19 08/22/19 11:27 12:00 12:00 12:11 Temp 99.4 99.4 Pulse 140 Resp 31 B/P (MAP) 153/85 (107) Pulse Ox 100 100 99 O2 Delivery Ventilator Mechanical Ventilator Ventilator Tracheal Collar O2 Flow Rate 10.0 08/22/19 08/22/19 08/22/19 08/22/19 13:00 14:00 15:00 15:40 Pulse 145 138 118 Resp 40 36 25 B/P (MAP) 184/95 (124) 138/65 (89) 118/97 (104) Pulse Ox 99 94 97 99 O2 Delivery Tracheal Collar Tracheal Collar Tracheal Collar Tracheal Collar O2 Flow Rate 10.0 10.0 10.0 10.0 08/22/19 08/22/19 08/22/19 08/22/19 16:00 16:00 17:00 18:00 Temp 97.0 97.0 Pulse 111 106 115 Resp 30 27 32 B/P (MAP) 117/65 (82) 113/58 (76) 140/67 (91) Pulse Ox 99 98 100 O2 Delivery Trach Collar Tracheal Collar Tracheal Collar Tracheal Collar O2 Flow Rate 10.0 10.0 10.0 10.0 Intake and Output 08/21/19 08/21/19 08/22/19 15:00 23:00 07:00 Intake Total 341 ml 2464.8 ml Output Total 550 ml 1080 ml 825 ml Balance -550 ml -739 ml 1639.8 ml Hemodynamically unstable?: No Is patient in severe pain?: Yes Is NPO status required?: Yes NIELS MCGILL MD August 22, 2019 18:36
[2019-08-22] MEDS: HYDROmorphone 2 MG/ML VIAL IVP PRN (21:12)
--- NOTE | 2019-08-22 21:20 | NUR ---
Patient c/o pain in abd, rated it a 9. States she just doesn't feel good now. c/o "some nausea". Dilaudid was given at 2111 and Zofran was given at this time. Turned patient and replaced the cool cloth on her forehead.
[2019-08-22] MEDS ORDERED: [UNRECOGNIZED DRUG - OTHER] IV SCH ×9 (22:00)
[2019-08-22] MEDS ORDERED: DEXTROSE 70% IV SCH ×9 (22:00)
[2019-08-22] MEDS ORDERED: TOTAL PARENTERAL NUTRITION IV SCH ×9 (22:00)
[2019-08-22] MEDS ORDERED: AMINO ACID IV SCH ×9 (22:00)
[2019-08-23] VITALS (24 sets, daily range): BP systolic 89–172; BP diastolic 48–96
--- NOTE | 2019-08-23 00:01 | NUR ---
Patient requested to go back on vent at PS settings.
[2019-08-23] MEDS: DEXMEDETOMIDINE 400 MCG in IV NORMAL SALINE 100ML 96 ML IV PRN ×5 (00:13→20:19)
[2019-08-23] MEDS: HYDROmorphone 2 MG/ML VIAL IVP PRN ×4 (02:32→19:38)
[2019-08-23] MEDS: INSULIN LISPRO 300 UNITS/3 ML VIAL. SQ SCH ×4 (06:00→18:00)
[2019-08-23] MEDS: MEROPENEM 1 GM in IV NORMAL SALINE 100ML 100 ML IV SCH ×3 (06:10→22:02)
[2019-08-23 06:43] LABS: BASO % 1 % (0-3); EOS # 0.2 x10^3/uL (0.0-0.7); EOS % 3 % (0-3); HEMATOCRIT 23.2 % (36.0-47.0); HEMOGLOBIN 7.3 g/dL (12.0-15.5); LYMPH # 1.2 x10^3/uL (1.0-4.8); LYMPH % 17 % (24-48); MEAN CORPUSCULAR HEMOGLOBIN 29 pg (25-35); MEAN CORPUSCULAR HGB CONC 32 g/dL (31-37); MEAN CORPUSCULAR VOLUME 91 fL (79-100); MONO # 0.4 x10^3/uL (0.0-1.1); MONO % 5 % (0-9); NEUT # 5.5 x10^3/uL (1.8-7.7); NEUT % 75 % (31-73); PLATELET COUNT 370 x10^3/uL (140-400); RED BLOOD COUNT 2.55 x10^6/uL (3.50-5.40); RED CELL DISTRIBUTION WIDTH 18.5 % (11.5-14.5); WHITE BLOOD COUNT 7.3 x10^3/uL (4.0-11.0)
[2019-08-23 06:57] LABS: CALCIUM 8.6 mg/dL (8.5-10.1); CREATININE 0.9 mg/dL (0.6-1.0); GFR 66.5; PHOSPHORUS 3.2 mg/dL (2.6-4.7); POTASSIUM 4.1 mmol/L (3.5-5.1)
--- NOTE | 2019-08-23 08:25 | PDOC ---
PULMONARY PROGRESS NOTES Subjective Patient intubated on 07/10 , s/p trach /, awake alert follows commands Vitals Vital Signs Date Time Temp Pulse Resp B/P (MAP) Pulse Ox O2 Delivery O2 Flow Rate FiO2 08/23/19 07:46 97 Ventilator 08/23/19 06:00 91 18 94/56 (69) 08/23/19 04:00 97.5 97.5 08/22/19 23:00 8.0 ROS: No Nausea, No Chest Pain, No Abdominal Pain, No Increase Cough General: Alert, No acute distress HEENT: Other (nc at perrl nose clear [facility] trach site ok no lad no thyromegaly) Lungs: Crackles Cardiovascular: S1, S2 Abdomen: Soft, Non-tender, Other (firm) Neuro Exam: Alert Extremities: Other (+3 generalized edema ) Skin: Warm, Dry Labs Laboratory Tests Test 08/21/19 12:47 08/21/19 16:09 08/21/19 17:57 08/22/19 06:10 Glucose (Fingerstick) 126 mg/dL (70-99) 148 mg/dL (70-99) O2 Saturation 93 % (92-99) Arterial Blood pH 7.47 (7.35-7.45) Arterial Blood pCO2 at Patient Temp 49 mmHg (35-46) Arterial Blood pO2 at Patient Temp 73 mmHg (75-108) Arterial Blood HCO3 35 mmol/L (21-28) Arterial Blood Base Excess 10 mmol/L (-3-3) Oxyhemoglobin 92.7 % Methemoglobin 0.4 % (0.0-1.9) Carbon Monoxide, Quantitative 0.3 % (0.0-1.9) FiO2 30 Sodium Level 154 mmol/L (136-145) Potassium Level 4.0 mmol/L (3.5-5.1) Chloride Level 114 mmol/L (98-107) Carbon Dioxide Level 33 mmol/L (21-32) Anion Gap 7 (6-14) Blood Urea Nitrogen 45 mg/dL (7-20) Creatinine 0.9 mg/dL (0.6-1.0) Estimated GFR (Cockcroft-Gault) 66.5 BUN/Creatinine Ratio 50 (6-20) Glucose Level 164 mg/dL (70-99) Calcium Level 8.8 mg/dL (8.5-10.1) Phosphorus Level 3.4 mg/dL (2.6-4.7) Magnesium Level 2.2 mg/dL (1.8-2.4) Total Bilirubin 0.5 mg/dL (0.2-1.0) Aspartate Amino Transf (AST/SGOT) 39 U/L (15-37) Alanine Aminotransferase (ALT/SGPT) 36 U/L (14-59) Alkaline Phosphatase 127 U/L (46-116) Total Protein 5.6 g/dL (6.4-8.2) Albumin 1.8 g/dL (3.4-5.0) Albumin/Globulin Ratio 0.5 (1.0-1.7) Triglycerides Level 174 mg/dL (0-150) Test 08/22/19 06:15 08/22/19 10:30 08/22/19 11:58 08/22/19 18:17 Glucose (Fingerstick) 153 mg/dL (70-99) 182 mg/dL (70-99) 145 mg/dL (70-99) White Blood Count 9.9 x10^3/uL (4.0-11.0) Red Blood Count 2.49 x10^6/uL (3.50-5.40) Hemoglobin 7.1 g/dL (12.0-15.5) Hematocrit 22.7 % (36.0-47.0) Mean Corpuscular Volume 91 fL (79-100) Mean Corpuscular Hemoglobin 29 pg (25-35) Mean Corpuscular Hemoglobin Concent 31 g/dL (31-37) Red Cell Distribution Width 18.9 % (11.5-14.5) Platelet Count 458 x10^3/uL (140-400) Neutrophils (%) (Auto) 74 % (31-73) Lymphocytes (%) (Auto) 19 % (24-48) Monocytes (%) (Auto) 5 % (0-9) Eosinophils (%) (Auto) 2 % (0-3) Basophils (%) (Auto) 0 % (0-3) Neutrophils # (Auto) 7.3 x10^3/uL (1.8-7.7) Lymphocytes # (Auto) 1.9 x10^3/uL (1.0-4.8) Monocytes # (Auto) 0.5 x10^3/uL (0.0-1.1) Eosinophils # (Auto) 0.1 x10^3/uL (0.0-0.7) Basophils # (Auto) 0.0 x10^3/uL (0.0-0.2) Test 08/23/19 00:21 08/23/19 06:35 08/23/19 06:38 Glucose (Fingerstick) 153 mg/dL (70-99) 102 mg/dL (70-99) White Blood Count 7.3 x10^3/uL (4.0-11.0) Red Blood Count 2.55 x10^6/uL (3.50-5.40) Hemoglobin 7.3 g/dL (12.0-15.5) Hematocrit 23.2 % (36.0-47.0) Mean Corpuscular Volume 91 fL (79-100) Mean Corpuscular Hemoglobin 29 pg (25-35) Mean Corpuscular Hemoglobin Concent 32 g/dL (31-37) Red Cell Distribution Width 18.5 % (11.5-14.5) Platelet Count 370 x10^3/uL (140-400) Neutrophils (%) (Auto) 75 % (31-73) Lymphocytes (%) (Auto) 17 % (24-48) Monocytes (%) (Auto) 5 % (0-9) Eosinophils (%) (Auto) 3 % (0-3) Basophils (%) (Auto) 1 % (0-3) Neutrophils # (Auto) 5.5 x10^3/uL (1.8-7.7) Lymphocytes # (Auto) 1.2 x10^3/uL (1.0-4.8) Monocytes # (Auto) 0.4 x10^3/uL (0.0-1.1) Eosinophils # (Auto) 0.2 x10^3/uL (0.0-0.7) Basophils # (Auto) 0.0 x10^3/uL (0.0-0.2) Sodium Level 153 mmol/L (136-145) Potassium Level 4.1 mmol/L (3.5-5.1) Chloride Level 114 mmol/L (98-107) Carbon Dioxide Level 33 mmol/L (21-32) Anion Gap 6 (6-14) Blood Urea Nitrogen 41 mg/dL (7-20) Creatinine 0.9 mg/dL (0.6-1.0) Estimated GFR (Cockcroft-Gault) 66.5 Glucose Level 104 mg/dL (70-99) Calcium Level 8.6 mg/dL (8.5-10.1) Phosphorus Level 3.2 mg/dL (2.6-4.7) Magnesium Level 2.0 mg/dL (1.8-2.4) Laboratory Tests Test 08/22/19 10:30 08/22/19 11:58 08/22/19 18:17 08/23/19 00:21 White Blood Count 9.9 x10^3/uL (4.0-11.0) Red Blood Count 2.49 x10^6/uL (3.50-5.40) Hemoglobin 7.1 g/dL (12.0-15.5) Hematocrit 22.7 % (36.0-47.0) Mean Corpuscular Volume 91 fL (79-100) Mean Corpuscular Hemoglobin 29 pg (25-35) Mean Corpuscular Hemoglobin Concent 31 g/dL (31-37) Red Cell Distribution Width 18.9 % (11.5-14.5) Platelet Count 458 x10^3/uL (140-400) Neutrophils (%) (Auto) 74 % (31-73) Lymphocytes (%) (Auto) 19 % (24-48) Monocytes (%) (Auto) 5 % (0-9) Eosinophils (%) (Auto) 2 % (0-3) Basophils (%) (Auto) 0 % (0-3) Neutrophils # (Auto) 7.3 x10^3/uL (1.8-7.7) Lymphocytes # (Auto) 1.9 x10^3/uL (1.0-4.8) Monocytes # (Auto) 0.5 x10^3/uL (0.0-1.1) Eosinophils # (Auto) 0.1 x10^3/uL (0.0-0.7) Basophils # (Auto) 0.0 x10^3/uL (0.0-0.2) Glucose (Fingerstick) 182 mg/dL (70-99) 145 mg/dL (70-99) 153 mg/dL (70-99) Test 08/23/19 06:35 08/23/19 06:38 White Blood Count 7.3 x10^3/uL (4.0-11.0) Red Blood Count 2.55 x10^6/uL (3.50-5.40) Hemoglobin 7.3 g/dL (12.0-15.5) Hematocrit 23.2 % (36.0-47.0) Mean Corpuscular Volume 91 fL (79-100) Mean Corpuscular Hemoglobin 29 pg (25-35) Mean Corpuscular Hemoglobin Concent 32 g/dL (31-37) Red Cell Distribution Width 18.5 % (11.5-14.5) Platelet Count 370 x10^3/uL (140-400) Neutrophils (%) (Auto) 75 % (31-73) Lymphocytes (%) (Auto) 17 % (24-48) Monocytes (%) (Auto) 5 % (0-9) Eosinophils (%) (Auto) 3 % (0-3) Basophils (%) (Auto) 1 % (0-3) Neutrophils # (Auto) 5.5 x10^3/uL (1.8-7.7) Lymphocytes # (Auto) 1.2 x10^3/uL (1.0-4.8) Monocytes # (Auto) 0.4 x10^3/uL (0.0-1.1) Eosinophils # (Auto) 0.2 x10^3/uL (0.0-0.7) Basophils # (Auto) 0.0 x10^3/uL (0.0-0.2) Sodium Level 153 mmol/L (136-145) Potassium Level 4.1 mmol/L (3.5-5.1) Chloride Level 114 mmol/L (98-107) Carbon Dioxide Level 33 mmol/L (21-32) Anion Gap 6 (6-14) Blood Urea Nitrogen 41 mg/dL (7-20) Creatinine 0.9 mg/dL (0.6-1.0) Estimated GFR (Cockcroft-Gault) 66.5 Glucose Level 104 mg/dL (70-99) Calcium Level 8.6 mg/dL (8.5-10.1) Phosphorus Level 3.2 mg/dL (2.6-4.7) Magnesium Level 2.0 mg/dL (1.8-2.4) Glucose (Fingerstick) 102 mg/dL (70-99) Medications Active Scripts Medications Dose Route/Sig Max Daily Dose Days Date Category Bisoprolol Fumarate 5 Mg Tablet 10 Mg PO DAILY 07/04/19 Reported Impression . IMPRESSION: 1. Acute hypoxemic respiratory failure secondary to ARDS status post trach, 2. Gallstone pancreatitis 3. Severe metabolic acidosis.stable 4. Acute kidney injury-stable, ON HD-- continue to improve 5. Acute gallstone pancreatitis. 6. Hypoalbuminemia. 7. Moderate persistent effusions 8. Fever- Per ID, per surgery 9. Chronic anemia 10. Covid 19 testing negative 11. Moderate to large ascites-S/P paracentisis 12.S/P paracentisis with 4 liters removed on 08/03/19 Surgery note Operative Note: After obtaining informed consent, patient was taken to OR, induced under GETA and prepped in the usual fashion. 5 mm port placed umbilical and right mid abdomen, all under laparoscopic guidance. Large amount of ascites encountered and aspirated off. Fluid was clear with some whitish debris. Viscera was completely locked in with obliteration of all planes, preventing any significant exploration. Copious irrigation. Given patient's overall clinical improvement, favor against open procedure and attempt at cholecystectomy and/or necrosectomy, given high risk of complications. Cholecystectomy will need to be performed, but favor waiting 3 months. 19 KAYLIN drain placed and secured with 3 0 nylon. Skin repaired with 4 0 monocryl. Dressing placed. Patient tolerated procedure well and sent to PACU in stable condition. All counts correct. Wound class is 4. Plan . Continue off mechanical support Trach shield precedex for anxiety, prn, avoid excessive sedation Follow surgery input Follow ID rec, abx per id Follow nephrology recs Nutritional support per surgery: continue TPN for nutrition DVT/GI PPX : heparin Sq/ protonix d/w RN/RT CODE:FULL HARMEET BEE MD August 23, 2019 08:25
[2019-08-23] MEDS: POLYVINYL ALCOHOL 1.4% OPHTH SOLUTION 15ML BOTTLE. OU PRN (09:10)
[2019-08-23] MEDS: PANTOPRAZOLE IV PUSH 40 MG VIAL. IVP SCH (09:11)
[2019-08-23] MEDS: ACETAMINOPHEN 650 MG SUPP.RECT. PR PRN (09:12)
[2019-08-23] MEDS: HEPARIN for SUB-Q USE 5,000 UNIT/ML VIAL. SQ SCH ×2 (09:12→22:04)
--- NOTE | 2019-08-23 09:12 | PDOC ---
SURGICAL PROGRESS NOTE Subjective Pt awake on vent Vital Signs Vital Signs Date Time Temp Pulse Resp B/P (MAP) Pulse Ox O2 Delivery O2 Flow Rate FiO2 08/23/19 07:46 97 Ventilator 08/23/19 06:00 91 18 94/56 (69) 08/23/19 04:00 97.5 97.5 08/22/19 23:00 8.0 I&O Intake and Output 08/23/19 07:00 Intake Total 3052 ml Output Total 1940 ml Balance 1112 ml Intake Oral 0 ml IV Total 3052 ml Output Urine Total 1900 ml Drainage Total 40 ml General: Alert, mild distress Abdomen: Soft, Other (mild TTP, drain with serous output) Labs Laboratory Tests Test 08/21/19 12:47 08/21/19 16:09 08/21/19 17:57 08/22/19 06:10 Glucose (Fingerstick) 126 mg/dL (70-99) 148 mg/dL (70-99) O2 Saturation 93 % (92-99) Arterial Blood pH 7.47 (7.35-7.45) Arterial Blood pCO2 at Patient Temp 49 mmHg (35-46) Arterial Blood pO2 at Patient Temp 73 mmHg (75-108) Arterial Blood HCO3 35 mmol/L (21-28) Arterial Blood Base Excess 10 mmol/L (-3-3) Oxyhemoglobin 92.7 % Methemoglobin 0.4 % (0.0-1.9) Carbon Monoxide, Quantitative 0.3 % (0.0-1.9) FiO2 30 Sodium Level 154 mmol/L (136-145) Potassium Level 4.0 mmol/L (3.5-5.1) Chloride Level 114 mmol/L (98-107) Carbon Dioxide Level 33 mmol/L (21-32) Anion Gap 7 (6-14) Blood Urea Nitrogen 45 mg/dL (7-20) Creatinine 0.9 mg/dL (0.6-1.0) Estimated GFR (Cockcroft-Gault) 66.5 BUN/Creatinine Ratio 50 (6-20) Glucose Level 164 mg/dL (70-99) Calcium Level 8.8 mg/dL (8.5-10.1) Phosphorus Level 3.4 mg/dL (2.6-4.7) Magnesium Level 2.2 mg/dL (1.8-2.4) Total Bilirubin 0.5 mg/dL (0.2-1.0) Aspartate Amino Transf (AST/SGOT) 39 U/L (15-37) Alanine Aminotransferase (ALT/SGPT) 36 U/L (14-59) Alkaline Phosphatase 127 U/L (46-116) Total Protein 5.6 g/dL (6.4-8.2) Albumin 1.8 g/dL (3.4-5.0) Albumin/Globulin Ratio 0.5 (1.0-1.7) Triglycerides Level 174 mg/dL (0-150) Test 08/22/19 06:15 08/22/19 10:30 08/22/19 11:58 08/22/19 18:17 Glucose (Fingerstick) 153 mg/dL (70-99) 182 mg/dL (70-99) 145 mg/dL (70-99) White Blood Count 9.9 x10^3/uL (4.0-11.0) Red Blood Count 2.49 x10^6/uL (3.50-5.40) Hemoglobin 7.1 g/dL (12.0-15.5) Hematocrit 22.7 % (36.0-47.0) Mean Corpuscular Volume 91 fL (79-100) Mean Corpuscular Hemoglobin 29 pg (25-35) Mean Corpuscular Hemoglobin Concent 31 g/dL (31-37) Red Cell Distribution Width 18.9 % (11.5-14.5) Platelet Count 458 x10^3/uL (140-400) Neutrophils (%) (Auto) 74 % (31-73) Lymphocytes (%) (Auto) 19 % (24-48) Monocytes (%) (Auto) 5 % (0-9) Eosinophils (%) (Auto) 2 % (0-3) Basophils (%) (Auto) 0 % (0-3) Neutrophils # (Auto) 7.3 x10^3/uL (1.8-7.7) Lymphocytes # (Auto) 1.9 x10^3/uL (1.0-4.8) Monocytes # (Auto) 0.5 x10^3/uL (0.0-1.1) Eosinophils # (Auto) 0.1 x10^3/uL (0.0-0.7) Basophils # (Auto) 0.0 x10^3/uL (0.0-0.2) Test 08/23/19 00:21 08/23/19 06:35 08/23/19 06:38 Glucose (Fingerstick) 153 mg/dL (70-99) 102 mg/dL (70-99) White Blood Count 7.3 x10^3/uL (4.0-11.0) Red Blood Count 2.55 x10^6/uL (3.50-5.40) Hemoglobin 7.3 g/dL (12.0-15.5) Hematocrit 23.2 % (36.0-47.0) Mean Corpuscular Volume 91 fL (79-100) Mean Corpuscular Hemoglobin 29 pg (25-35) Mean Corpuscular Hemoglobin Concent 32 g/dL (31-37) Red Cell Distribution Width 18.5 % (11.5-14.5) Platelet Count 370 x10^3/uL (140-400) Neutrophils (%) (Auto) 75 % (31-73) Lymphocytes (%) (Auto) 17 % (24-48) Monocytes (%) (Auto) 5 % (0-9) Eosinophils (%) (Auto) 3 % (0-3) Basophils (%) (Auto) 1 % (0-3) Neutrophils # (Auto) 5.5 x10^3/uL (1.8-7.7) Lymphocytes # (Auto) 1.2 x10^3/uL (1.0-4.8) Monocytes # (Auto) 0.4 x10^3/uL (0.0-1.1) Eosinophils # (Auto) 0.2 x10^3/uL (0.0-0.7) Basophils # (Auto) 0.0 x10^3/uL (0.0-0.2) Sodium Level 153 mmol/L (136-145) Potassium Level 4.1 mmol/L (3.5-5.1) Chloride Level 114 mmol/L (98-107) Carbon Dioxide Level 33 mmol/L (21-32) Anion Gap 6 (6-14) Blood Urea Nitrogen 41 mg/dL (7-20) Creatinine 0.9 mg/dL (0.6-1.0) Estimated GFR (Cockcroft-Gault) 66.5 Glucose Level 104 mg/dL (70-99) Calcium Level 8.6 mg/dL (8.5-10.1) Phosphorus Level 3.2 mg/dL (2.6-4.7) Magnesium Level 2.0 mg/dL (1.8-2.4) Laboratory Tests Test 08/22/19 10:30 08/22/19 11:58 08/22/19 18:17 08/23/19 00:21 White Blood Count 9.9 x10^3/uL (4.0-11.0) Red Blood Count 2.49 x10^6/uL (3.50-5.40) Hemoglobin 7.1 g/dL (12.0-15.5) Hematocrit 22.7 % (36.0-47.0) Mean Corpuscular Volume 91 fL (79-100) Mean Corpuscular Hemoglobin 29 pg (25-35) Mean Corpuscular Hemoglobin Concent 31 g/dL (31-37) Red Cell Distribution Width 18.9 % (11.5-14.5) Platelet Count 458 x10^3/uL (140-400) Neutrophils (%) (Auto) 74 % (31-73) Lymphocytes (%) (Auto) 19 % (24-48) Monocytes (%) (Auto) 5 % (0-9) Eosinophils (%) (Auto) 2 % (0-3) Basophils (%) (Auto) 0 % (0-3) Neutrophils # (Auto) 7.3 x10^3/uL (1.8-7.7) Lymphocytes # (Auto) 1.9 x10^3/uL (1.0-4.8) Monocytes # (Auto) 0.5 x10^3/uL (0.0-1.1) Eosinophils # (Auto) 0.1 x10^3/uL (0.0-0.7) Basophils # (Auto) 0.0 x10^3/uL (0.0-0.2) Glucose (Fingerstick) 182 mg/dL (70-99) 145 mg/dL (70-99) 153 mg/dL (70-99) Test 08/23/19 06:35 08/23/19 06:38 White Blood Count 7.3 x10^3/uL (4.0-11.0) Red Blood Count 2.55 x10^6/uL (3.50-5.40) Hemoglobin 7.3 g/dL (12.0-15.5) Hematocrit 23.2 % (36.0-47.0) Mean Corpuscular Volume 91 fL (79-100) Mean Corpuscular Hemoglobin 29 pg (25-35) Mean Corpuscular Hemoglobin Concent 32 g/dL (31-37) Red Cell Distribution Width 18.5 % (11.5-14.5) Platelet Count 370 x10^3/uL (140-400) Neutrophils (%) (Auto) 75 % (31-73) Lymphocytes (%) (Auto) 17 % (24-48) Monocytes (%) (Auto) 5 % (0-9) Eosinophils (%) (Auto) 3 % (0-3) Basophils (%) (Auto) 1 % (0-3) Neutrophils # (Auto) 5.5 x10^3/uL (1.8-7.7) Lymphocytes # (Auto) 1.2 x10^3/uL (1.0-4.8) Monocytes # (Auto) 0.4 x10^3/uL (0.0-1.1) Eosinophils # (Auto) 0.2 x10^3/uL (0.0-0.7) Basophils # (Auto) 0.0 x10^3/uL (0.0-0.2) Sodium Level 153 mmol/L (136-145) Potassium Level 4.1 mmol/L (3.5-5.1) Chloride Level 114 mmol/L (98-107) Carbon Dioxide Level 33 mmol/L (21-32) Anion Gap 6 (6-14) Blood Urea Nitrogen 41 mg/dL (7-20) Creatinine 0.9 mg/dL (0.6-1.0) Estimated GFR (Cockcroft-Gault) 66.5 Glucose Level 104 mg/dL (70-99) Calcium Level 8.6 mg/dL (8.5-10.1) Phosphorus Level 3.2 mg/dL (2.6-4.7) Magnesium Level 2.0 mg/dL (1.8-2.4) Glucose (Fingerstick) 102 mg/dL (70-99) I have reviewed the following CT with severe pancreatitis Problem List Problems Medical Problems: (1) Acute pancreatitis Status: Acute (2) Cholelithiasis Status: Acute Assessment/Plan pancreatitis cont supportive care, no surgical plans. DAVON SIMMS MD August 23, 2019 09:12
--- NOTE | 2019-08-23 09:16 | PDOC ---
Infectious Disease Note Subjective Subjective Uncomfortable in abd ? less mild nausea Feels distended still on trach with vent Discussed with RN Vital Sign Vital Signs Vital Signs Date Time Temp Pulse Resp B/P (MAP) Pulse Ox O2 Delivery O2 Flow Rate FiO2 08/23/19 07:46 97 Ventilator 08/23/19 06:00 91 18 94/56 (69) 08/23/19 04:00 97.5 97.5 08/22/19 23:00 8.0 Physical Exam PHYSICAL EXAM GENERAL: Propped up in bed, Alert. weak appearing but not toxic HEENT: Pupils equal, + NGT, oral cavity dry NECK: Trach/vent LUNGS: rhonchi HEART: S1, S2, regular ABDOMEN: Distended, hypoactive BS, drain placement (08/14 - serous fluid) : Lind (08/01) EXTREMITIES: Generalized edema, no cyanosis, SCDs bilaterally DERMATOLOGIC: Warm and dry. No generalized rash. CENTRAL NERVOUS SYSTEM: Extremely weak, mouthing words to simple questions PICC line in place August 18, 2019 clean HDC has been removed LIJ removed Labs Lab Laboratory Tests Test 08/22/19 10:30 08/22/19 11:58 08/22/19 18:17 08/23/19 00:21 White Blood Count 9.9 x10^3/uL (4.0-11.0) Red Blood Count 2.49 x10^6/uL (3.50-5.40) Hemoglobin 7.1 g/dL (12.0-15.5) Hematocrit 22.7 % (36.0-47.0) Mean Corpuscular Volume 91 fL (79-100) Mean Corpuscular Hemoglobin 29 pg (25-35) Mean Corpuscular Hemoglobin Concent 31 g/dL (31-37) Red Cell Distribution Width 18.9 % (11.5-14.5) Platelet Count 458 x10^3/uL (140-400) Neutrophils (%) (Auto) 74 % (31-73) Lymphocytes (%) (Auto) 19 % (24-48) Monocytes (%) (Auto) 5 % (0-9) Eosinophils (%) (Auto) 2 % (0-3) Basophils (%) (Auto) 0 % (0-3) Neutrophils # (Auto) 7.3 x10^3/uL (1.8-7.7) Lymphocytes # (Auto) 1.9 x10^3/uL (1.0-4.8) Monocytes # (Auto) 0.5 x10^3/uL (0.0-1.1) Eosinophils # (Auto) 0.1 x10^3/uL (0.0-0.7) Basophils # (Auto) 0.0 x10^3/uL (0.0-0.2) Glucose (Fingerstick) 182 mg/dL (70-99) 145 mg/dL (70-99) 153 mg/dL (70-99) Test 08/23/19 06:35 08/23/19 06:38 White Blood Count 7.3 x10^3/uL (4.0-11.0) Red Blood Count 2.55 x10^6/uL (3.50-5.40) Hemoglobin 7.3 g/dL (12.0-15.5) Hematocrit 23.2 % (36.0-47.0) Mean Corpuscular Volume 91 fL (79-100) Mean Corpuscular Hemoglobin 29 pg (25-35) Mean Corpuscular Hemoglobin Concent 32 g/dL (31-37) Red Cell Distribution Width 18.5 % (11.5-14.5) Platelet Count 370 x10^3/uL (140-400) Neutrophils (%) (Auto) 75 % (31-73) Lymphocytes (%) (Auto) 17 % (24-48) Monocytes (%) (Auto) 5 % (0-9) Eosinophils (%) (Auto) 3 % (0-3) Basophils (%) (Auto) 1 % (0-3) Neutrophils # (Auto) 5.5 x10^3/uL (1.8-7.7) Lymphocytes # (Auto) 1.2 x10^3/uL (1.0-4.8) Monocytes # (Auto) 0.4 x10^3/uL (0.0-1.1) Eosinophils # (Auto) 0.2 x10^3/uL (0.0-0.7) Basophils # (Auto) 0.0 x10^3/uL (0.0-0.2) Sodium Level 153 mmol/L (136-145) Potassium Level 4.1 mmol/L (3.5-5.1) Chloride Level 114 mmol/L (98-107) Carbon Dioxide Level 33 mmol/L (21-32) Anion Gap 6 (6-14) Blood Urea Nitrogen 41 mg/dL (7-20) Creatinine 0.9 mg/dL (0.6-1.0) Estimated GFR (Cockcroft-Gault) 66.5 Glucose Level 104 mg/dL (70-99) Calcium Level 8.6 mg/dL (8.5-10.1) Phosphorus Level 3.2 mg/dL (2.6-4.7) Magnesium Level 2.0 mg/dL (1.8-2.4) Glucose (Fingerstick) 102 mg/dL (70-99) Micro U/S 08/21 IMPRESSION: Complex fluid collections within the right and lower quadrants. The abdominal visceral and vascular structures are not formally assessed on this exam. CT Scan 08/21 IMPRESSION: 1. Findings consistent with sequelae of severe acute pancreatitis with enlarging peripancreatic and intra-abdominal fluid collections as described 2. Interval placement of a drain in the ventral abdominal wall with and partial evacuation of the ventral extraperitoneal fluid collection previously evident. 08/14 Operative Note: After obtaining informed consent, patient was taken to OR, induced under GETA and prepped in the usual fashion. 5 mm port placed umbilical and right mid abdomen, all under laparoscopic guidance. Large amount of ascites encountered and aspirated off. Fluid was clear with some whitish debris. Viscera was completely locked in with obliteration of all planes, preventing any significant exploration. Copious irrigation. Given patient's overall clinical improvement, favor against open procedure and attempt at cholecystectomy and/or necrosectomy, given high risk of complications. Cholecystectomy will need to be performed, but favor waiting 3 months. 19 KAYLIN drain placed and secured with 3 0 nylon. Skin repaired with 4 0 monocryl. Dressing placed. Patient tolerated procedure well and sent to PACU in stable condition. All counts correct. Wound class is 4. CT Chest Abd/pelv 08/01 CT CHEST: CT scan the chest was done without contrast. There is a tracheostomy tube in good position. There are large bilateral pleural effusions. There is atelectasis in both lung bases. There is no mediastinal adenopathy. Right arm PICC line extends to the superior vena cava. There is a temporary dialysis catheter extending to the vena cava near the atrium. IMPRESSION: 1. Large bilateral effusions. 2. Atelectasis of both lungs. End impression CT abdomen pelvis CT scan the abdomen pelvis was done following CT chest with contrast. NG tube extends into the stomach. Spleen is normal. There is no mass or hydronephrosis in the kidneys. There is a gallstone the gallbladder. A focal liver lesion is not identified. There is diffuse necrosis of the pancreas. There is peripancreatic fluid. The pattern is similar to the recent study. There is fluid in the paracolic gutters. There is retroperitoneal fluid surrounding the kidneys. Ascites extends into the pelvis. Ascites is similar to the prior study. There is no bowel obstruction. There is no free air. IMPRESSION: 1. Diffuse pancreatic necrosis. 2. A extensive retroperitoneal fluid and inflammation. 3. Cholelithiasis. 4. Moderate to large volume ascites with little change. CT A/P, 07/27 IMPRESSION: 1. Increased ascites. 2. 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 Cholelithiasis with thickening of the gallbladder wall. 4. Persistent pleural effusions and atelectasis in the lung bases. Objective Assessment Fever - better - intermittent could be from underlying pancreatitis Abd distention - U/S and CT reviewed Acute pancreatitis with persistent necrosis CT a/p 07/27 Increased ascites. Persistent evidence of necrotizing pancreatitis with fluid and phlegmon at the pancreas 08/14 status post KAYLIN drain placement - yeast on cult; Cult line tip 08/17 - neg Anemia Cholelithiasis with thickening of the gallbladder wall. Leucocytosis improving JUANA,Hyperkalemia, Metabolic acidosis off dialysis Acute hypoxic resp failure ,bilateral pleural effusion and atelectasis hypocalcemia Prediabetes HTN s/p trach Plan Plan of Care Uncertain if may benefit from drainage of fluid pockets but they appear to be increasing in size on CT. Await GI f/u. Gen surgery note reviewed from today - no mention of needing drainage Blood cult times 2 08/21 pending Add Micafungin 08/21 with yeast from 08/14 abd cult will have it worked up and sensitivity Dose Dapto / CBC this am and in am cont merrem (07/26), Electrolytes per primary Anemia per primary Follow-up Intra-Op cultures and lab Maintain aspiration precaution PT and OT as tolerated Continue supportive care D/w nursing WILLY BARAKAT MD August 23, 2019 09:16
--- NOTE | 2019-08-23 09:32 | PDOC ---
Subjective: Subjective: Abdomen hurts. Nausea w/o vomiting. Objective: Vital Signs: Vital Signs Date Time Temp Pulse Resp B/P (MAP) Pulse Ox O2 Delivery O2 Flow Rate FiO2 08/23/19 09:11 35 95 Tracheal Collar 10.0 08/23/19 06:00 91 94/56 (69) 08/23/19 04:00 97.5 97.5 Labs: Laboratory Tests Test 08/22/19 11:58 08/22/19 18:17 08/23/19 00:21 08/23/19 06:38 Glucose (Fingerstick) 182 mg/dL (70-99) 145 mg/dL (70-99) 153 mg/dL (70-99) 102 mg/dL (70-99) Imaging: Abd US IMPRESSION: Complex fluid collections within the right and lower quadrants. The abdominal visceral and vascular structures are not formally assessed on this ex am. CT A/P IMPRESSION: 1. Findings consistent with sequelae of severe acute pancreatitis with enlarging peripancreatic and intra-abdominal fluid collections as described 2. Interval placement of a drain in the ventral abdominal wall with and partial evacuation of the ventral extraperitoneal fluid collection previously evident. PE: GEN: NAD - nurses present adjusting pt in bed LUNGS: trach/vent HEART: tachycardic ABD: distended, uncomfortable, quiet, KAYLIN w/ minimal serous fluid NEURO/PSYCH: A & O 3 A/P: Gallstone pancreatitis, MOSF Nausea, abd discomfort -- Will review interval CT w/ Dr. Weber. Hemodynamically unstable?: No Is patient in severe pain?: Yes Is NPO status required?: Yes CYNDEE FALCON August 23, 2019 09:32
--- NOTE | 2019-08-23 10:35 | PDOC ---
SUBJECTIVE ROS stable OBJECTIVE Vital Signs Vital Signs Date Time Temp Pulse Resp B/P (MAP) Pulse Ox O2 Delivery O2 Flow Rate FiO2 08/23/19 09:11 35 95 Tracheal Collar 10.0 08/23/19 06:00 91 94/56 (69) 08/23/19 04:00 97.5 97.5 I & 0 Intake and Output 08/23/19 07:00 Intake Total 3052 ml Output Total 1940 ml Balance 1112 ml Intake Oral 0 ml IV Total 3052 ml Output Urine Total 1900 ml Drainage Total 40 ml PHYSICAL EXAM Physical Exam GENERAL: NAD HEENT: oral cavity dry NECK: Trach/vent LUNGS: Non labored HEART: S1, S2, regular ABDOMEN: Distended, hypoactive BS, drain placement (08/14 ) : Lind (08/01) EXTREMITIES: Generalized edema, DERMATOLOGIC: Warm and dry. No generalized rash. DIAGNOSIS/ASSESSMENT Assessment & Plan ARF-- ATN,requiring CRRT and HD Off HD, renal function improved Excellent UOP, dced IV Diuretics on 08/19 currently on TPN,, avoid nephrotoxins CT 08/21-? Developing right great 2 hydronephrosis. 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 Moderate pleural effusions, may be slightly improved. Infiltrate/atelectasis in both lung bases. Ascites - post paracentesis in the past US this am, abdomen appears distended Acute hypoxic resp failure ,bilateral pleural effusion Trach in place , On Vent HTN COVID-19 neg, 07/13 COMMENT/RELEVANT DATA Meds Current Medications Medications (Trade) Dose Ordered Sig/Yvon Start Time Stop Time Status Last Admin Dose Admin Acetaminophen (Tylenol Supp) 650 mg PRN Q6HRS PRN 07/12/19 10:30 08/23/19 09:12 650 MG Acetaminophen (Tylenol) 650 mg PRN Q6HRS PRN 07/09/19 03:36 08/04/19 19:56 650 MG Albumin Human 200 ml @ 200 mls/hr 1X PRN PRN 08/09/19 08:00 08/09/19 13:59 DC 08/09/19 08:40 200 MLS/HR Albuterol Sulfate (Ventolin Neb Soln) 2.5 mg 1X ONCE 07/05/19 22:30 07/05/19 22:31 DC 07/06/19 00:56 2.5 MG Alteplase, Recombinant (Cathflo For Central Catheter Clearance) 1 mg 1X ONCE 08/12/19 10:45 08/12/19 10:46 DC 08/12/19 11:44 1 MG Amino Acids/ Glycerin/ Electrolytes 1,000 ml @ 75 mls/hr [id number] 08/08/19 21:15 UNV Artificial Tears (Artificial Tears) 1 drop PRN Q15MIN PRN 08/17/19 05:30 08/23/19 09:10 1 DROP Atenolol (Tenormin) 100 mg DAILY 07/05/19 09:00 07/04/19 20:08 DC Atropine Sulfate (ATROPINE 0.5mg SYRINGE) 0.5 mg PRN Q5MIN PRN 07/21/19 08:15 Benzocaine (Hurricaine One) 1 spray 1X ONCE 07/08/19 14:30 07/08/19 14:31 DC 07/08/19 16:38 1 SPRAY Bisacodyl (Dulcolax Supp) 10 mg STK-MED ONCE 08/15/19 10:59 08/15/19 10:59 DC Bumetanide (Bumex) 2 mg [id number] 08/16/19 14:00 08/20/19 14:10 DC 08/19/19 13:50 2 MG Bupivacaine HCl/ Epinephrine Bitart (Sensorcain-Epi 0.5%-1:521101 Mpf) 30 ml STK-MED ONCE 08/15/19 10:58 08/15/19 10:58 DC 08/15/19 12:01 7 ML Calcium Carbonate/ Glycine (Tums) 500 mg PRN [id number] PRN 07/06/19 17:45 Calcium Chloride 1000 mg/Sodium Chloride 110 ml @ 220 mls/hr 1X ONCE 07/05/19 22:30 07/05/19 22:59 DC 07/05/19 22:11 220 MLS/HR Calcium Chloride 3000 mg/Sodium Chloride 1,030 ml @ 50 mls/hr [id number] 07/07/19 08:00 07/09/19 15:23 DC 07/09/19 02:17 50 MLS/HR Calcium Gluconate (Calcium Gluconate) 2,000 mg 1X ONCE 07/07/19 02:15 07/07/19 02:16 DC 07/07/19 02:19 2,000 MG Calcium Gluconate 1000 mg/Sodium Chloride 110 ml @ 220 mls/hr 1X ONCE 07/06/19 03:30 07/06/19 03:59 DC 07/06/19 03:21 220 MLS/HR Calcium Gluconate 2000 mg/Sodium Chloride 120 ml @ 220 mls/hr 1X ONCE 07/06/19 07:30 07/06/19 08:02 DC 07/06/19 09:05 220 MLS/HR Cefepime HCl (Maxipime) 2 gm Q12HR 07/13/19 09:00 07/27/19 09:58 DC 07/26/19 20:56 2 GM Cellulose (Surgicel Fibrillar 1x2) 1 each STK-MED ONCE 07/25/19 11:00 07/25/19 11:01 DC Cellulose (Surgicel Hemostat 2x14) 1 each STK-MED ONCE 08/15/19 10:58 08/15/19 10:59 DC Cellulose (Surgicel Hemostat 4x8) 1 each STK-MED ONCE 08/15/19 10:58 08/15/19 10:59 DC Cyclobenzaprine HCl (Flexeril) 10 mg PRN Q6HRS PRN 08/18/19 10:45 Daptomycin 430 mg/ Sodium Chloride 50 ml @ 100 mls/hr Q24H 08/13/19 13:00 08/18/19 20:58 DC 08/18/19 13:00 100 MLS/HR Daptomycin 485 mg/ Sodium Chloride 50 ml @ 100 mls/hr Q24H 08/22/19 11:00 08/22/19 11:59 100 MLS/HR Daptomycin 500 mg/ Sodium Chloride 50 ml @ 100 mls/hr Q48H 07/13/19 08:30 07/29/19 10:07 DC 07/29/19 09:57 100 MLS/HR Dexamethasone Sodium Phosphate (Decadron) 4 mg STK-MED ONCE 08/15/19 10:56 08/15/19 10:57 DC Dexmedetomidine HCl 400 mcg/ Sodium Chloride 100 ml @ 0 mls/hr CONT PRN 07/21/19 08:15 08/23/19 06:46 16.7 MLS/HR Dextrose (Dextrose 50%-Water Syringe) 12.5 gm PRN Q15MIN PRN 07/04/19 09:30 Digoxin (Lanoxin) 125 mcg 1X ONCE 07/07/19 18:00 07/07/19 18:01 DC 07/07/19 17:10 125 MCG Diphenhydramine HCl (Benadryl) 25 mg 1X PRN PRN 08/12/19 15:45 08/13/19 15:44 DC Enoxaparin Sodium (Lovenox 100mg Syringe) 100 mg Q12HR 08/09/19 21:00 UNV Etomidate (Amidate) 8 mg 1X ONCE 07/11/19 08:30 07/11/19 08:31 DC 07/11/19 08:33 8 MG Fentanyl Citrate (Fentanyl 2ml Vial) 100 mcg STK-MED ONCE 08/15/19 10:56 08/15/19 10:57 DC Furosemide (Lasix) 40 mg 1X ONCE 08/01/19 14:30 08/01/19 14:31 DC 08/01/19 14:39 40 MG Haloperidol Lactate (Haldol Inj) 3 mg 1X ONCE 08/22/19 14:30 08/22/19 14:31 DC 08/22/19 14:37 3 MG Heparin Sodium (Porcine) (Hep Lock Adult) 500 unit STK-MED ONCE 07/26/19 09:29 07/26/19 09:30 DC Heparin Sodium (Porcine) (Heparin Sodium) 5,000 unit Q12HR 08/15/19 21:00 08/23/19 09:12 5,000 UNIT Heparin Sodium (Porcine) 1000 unit/Sodium Chloride 1,001 ml @ 1,001 mls/hr 1X ONCE 08/15/19 12:00 08/15/19 12:59 DC Hydromorphone HCl (Dilaudid Standard DATABASE TECHNICIAN) 12 mg STK-MED ONCE 08/18/19 13:47 08/19/19 11:03 DC Hydromorphone HCl (Dilaudid) 1 mg PRN Q4HRS PRN 08/22/19 19:00 08/23/19 09:11 1 MG Info (CONTRAST GIVEN -- Rx MONITORING) 1 each PRN DAILY PRN 07/18/19 11:45 07/20/19 11:44 DC Info (Icu Electrolyte Protocol) 1 ea CONT PRN PRN 07/17/19 13:15 Info (PHARMACY MONITORING -- do not chart) 1 each PRN DAILY PRN 08/12/19 15:45 Info (Tpn Per Pharmacy) 1 each PRN DAILY PRN 07/06/19 12:30 UNV Insulin Human Lispro (HumaLOG) 0-9 UNITS Q6HRS 07/04/19 09:30 08/23/19 00:00 4 UNITS Insulin Human Regular (HumuLIN R VIAL) 5 unit 1X ONCE 07/05/19 22:30 07/05/19 22:31 DC 07/05/19 22:14 5 UNIT Iohexol (Omnipaque 240 Mg/ml) 30 ml 1X ONCE 07/18/19 11:30 07/18/19 11:33 DC 07/18/19 11:30 30 ML Iohexol (Omnipaque 300 Mg/ml) 50 ml STK-MED ONCE 08/15/19 10:58 08/15/19 10:59 DC Iohexol (Omnipaque 350 Mg/ml) 90 ml 1X ONCE 07/04/19 03:30 07/04/19 03:31 DC 07/04/19 03:25 90 ML Ketorolac Tromethamine (Toradol 30mg Vial) 30 mg 1X ONCE 07/04/19 03:00 07/04/19 03:01 DC 07/04/19 02:54 30 MG Lidocaine HCl (Buffered Lidocaine 1%) 6 ml 1X ONCE 08/03/19 13:30 08/03/19 13:31 DC 08/03/19 13:45 9 ML Lidocaine HCl (Glydo (Lidocaine) Jelly) 1 ramu 1X ONCE 07/08/19 14:30 07/08/19 14:31 DC 07/08/19 16:38 1 RAMU Lidocaine HCl (Xylocaine-Mpf 1% 2ml Vial) 2 ml PRN 1X PRN 08/15/19 07:00 08/16/19 06:59 DC Linezolid/Dextrose 300 ml @ 300 mls/hr Q12HR 07/29/19 11:00 08/09/19 08:10 DC 08/08/19 20:40 300 MLS/HR Lorazepam (Ativan Inj) 1 mg PRN Q4HRS PRN 07/07/19 09:00 08/05/19 09:19 DC 08/05/19 03:51 1 MG Magnesium Sulfate 50 ml @ 25 mls/hr 1X ONCE 08/20/19 10:30 08/20/19 12:29 DC 08/20/19 10:34 25 MLS/HR Meropenem 1 gm/ Sodium Chloride 100 ml @ 200 mls/hr Q8HRS 08/16/19 14:00 08/23/19 06:10 200 MLS/HR Meropenem 500 mg/ Sodium Chloride 50 ml @ 100 mls/hr Q12H 07/27/19 10:00 08/16/19 12:37 DC 08/16/19 10:45 100 MLS/HR Metoprolol Tartrate (Lopressor Vial) 5 mg Q6HRS 07/05/19 10:15 07/16/19 08:48 DC 07/14/19 00:12 5 MG Metronidazole 100 ml @ 100 mls/hr Q8HRS 08/02/19 10:00 08/09/19 08:10 DC 08/09/19 06:04 100 MLS/HR Micafungin Sodium 100 mg/Dextrose 100 ml @ 100 mls/hr Q24H 08/22/19 11:00 08/22/19 10:48 100 MLS/HR Midazolam HCl (Versed) 5 mg 1X ONCE 07/11/19 08:30 07/11/19 08:31 DC Midazolam HCl 100 mg/Sodium Chloride 100 ml @ 7 mls/hr CONT PRN 07/16/19 16:00 07/27/19 15:35 7 MLS/HR Midazolam HCl 50 mg/Sodium Chloride 50 ml @ 0 mls/hr CONT PRN 07/11/19 08:15 07/16/19 15:59 DC 07/14/19 22:39 7 MLS/HR Morphine Sulfate (Morphine Sulfate) 2 mg PRN Q2HR PRN 07/04/19 05:00 07/05/19 14:15 DC 07/05/19 12:26 2 MG Multi-Ingred Cream/Lotion/Oil/ Oint (Artificial Tears Eye Ointment) 1 ramu PRN Q1HR PRN 07/13/19 17:30 08/01/19 08:19 1 RAMU Naloxone HCl (Narcan) 0.4 mg PRN Q2MIN PRN 08/15/19 14:30 UNV Norepinephrine Bitartrate 8 mg/ Dextrose 258 ml @ 17.299 mls/ hr CONT PRN 07/05/19 15:30 08/05/19 09:19 DC 08/02/19 12:48 20.9 MLS/HR Ondansetron HCl (Zofran) 4 mg STK-MED ONCE 08/15/19 10:56 08/15/19 10:57 DC Pantoprazole Sodium (PROTONIX VIAL for IV PUSH) 40 mg DAILYAC 07/04/19 11:30 08/23/19 09:11 40 MG Phenylephrine HCl (PHENYLEPHRINE in 0.9% NACL PF) 1 mg STK-MED ONCE 08/15/19 12:34 08/15/19 12:34 DC Piperacillin Sod/ Tazobactam Sod 4.5 gm/Sodium Chloride 100 ml @ 200 mls/hr 1X ONCE 07/04/19 06:00 07/04/19 06:29 DC 07/04/19 05:44 200 MLS/HR Potassium Chloride 15 meq/ Bicarbonate Dialysis Soln w/ out KCl 5,007.5 ml @ 1,000 mls/ hr Q5H1M 07/17/19 20:00 07/21/19 13:08 DC 07/20/19 18:14 1,000 MLS/HR Potassium Chloride 20 meq/ Bicarbonate Dialysis Soln w/ out KCl 5,010 ml @ 1,000 mls/hr Q5H1M 07/13/19 16:00 07/17/19 19:59 DC 07/17/19 14:54 1,000 MLS/HR Potassium Chloride 75 meq/ Magnesium Sulfate 15 meq/Calcium Gluconate 8 meq/ Multivitamins 10 ml/Chromium/ Copper/Manganese/ Seleni/Zn 0.5 ml/ Insulin Human Regular 25 unit/ Total Parenteral Nutrition/Amino Acids/Dextrose/ Fat Emulsion Intravenous 1,920 ml @ 80 mls/hr TPN CONT 08/22/19 22:00 08/23/19 21:59 08/22/19 23:08 80 MLS/HR Potassium Chloride 75 meq/ Magnesium Sulfate 20 meq/Calcium Gluconate 10 meq/ Multivitamins 10 ml/Chromium/ Copper/Manganese/ Seleni/Zn 0.5 ml/ Insulin Human Regular 25 unit/ Total Parenteral Nutrition/Amino Acids/Dextrose/ Fat Emulsion Intravenous 1,920 ml @ 80 mls/hr TPN CONT 08/21/19 22:00 08/22/19 21:59 DC 08/21/19 22:04 80 MLS/HR Potassium Chloride 75 meq/ Magnesium Sulfate 20 meq/Calcium Gluconate 10 meq/ Multivitamins 10 ml/Chromium/ Copper/Manganese/ Seleni/Zn 0.5 ml/ Insulin Human Regular 30 unit/ Total Parenteral Nutrition/Amino Acids/Dextrose/ Fat Emulsion Intravenous 1,920 ml @ 80 mls/hr TPN CONT 08/20/19 22:00 08/21/19 22:00 DC 08/20/19 21:51 80 MLS/HR Potassium Chloride/Water 100 ml @ 100 mls/hr Q1H 08/20/19 07:00 08/20/19 10:59 DC 08/20/19 13:05 100 MLS/HR Potassium Phosphate 20 mmol/ Sodium Chloride 106.6667 ml @ 51.667 m... 1X ONCE 07/13/19 13:00 07/13/19 15:03 DC 07/13/19 12:51 51.667 MLS/HR Potassium Acetate 30 meq/Magnesium Sulfate 20 meq/ Calcium Gluconate 10 meq/ Multivitamins 10 ml/Chromium/ Copper/Manganese/ Seleni/Zn 0.5 ml/ Insulin Human Regular 30 unit/ Potassium Chloride 30 meq/ Total Parenteral Nutrition/Amino Acids/Dextrose/ Fat Emulsion Intravenous 1,920 ml @ 80 mls/hr TPN CONT 08/19/19 22:00 08/20/19 21:59 DC 08/19/19 22:34 80 MLS/HR Potassium Acetate 55 meq/Magnesium Sulfate 20 meq/ Calcium Gluconate 10 meq/ Multivitamins 10 ml/Chromium/ Copper/Manganese/ Seleni/Zn 0.5 ml/ Insulin Human Regular 30 unit/ Total Parenteral Nutrition/Amino Acids/Dextrose/ Fat Emulsion Intravenous 1,920 ml @ 80 mls/hr TPN CONT 08/18/19 22:00 08/19/19 21:59 DC 08/19/19 01:00 80 MLS/HR Potassium Acetate 55 meq/Magnesium Sulfate 20 meq/ Calcium Gluconate 10 meq/ Multivitamins 10 ml/Chromium/ Copper/Manganese/ Seleni/Zn 0.5 ml/ Insulin Human Regular 35 unit/ Total Parenteral Nutrition/Amino Acids/Dextrose/ Fat Emulsion Intravenous 1,920 ml @ 80 mls/hr TPN CONT 08/16/19 22:00 08/17/19 21:59 DC 08/16/19 22:02 80 MLS/HR Potassium Acetate 65 meq/Magnesium Sulfate 20 meq/ Calcium Gluconate 10 meq/ Multivitamins 10 ml/Chromium/ Copper/Manganese/ Seleni/Zn 0.5 ml/ Insulin Human Regular 30 unit/ Total Parenteral Nutrition/Amino Acids/Dextrose/ Fat Emulsion Intravenous 1,920 ml @ 80 mls/hr TPN CONT 08/17/19 22:00 08/18/19 21:59 DC 08/17/19 22:22 80 MLS/HR Prochlorperazine Edisylate (Compazine) 5 mg PACU PRN PRN 08/15/19 07:00 08/16/19 06:59 DC Propofol 20 ml @ As Directed STK-MED ONCE 08/15/19 12:26 08/15/19 12:27 DC Ringer's Solution 1,000 ml @ 30 mls/hr Q24H 08/15/19 07:00 08/15/19 18:59 DC Rocuronium [place] (Zemuron) 50 mg STK-MED ONCE 08/15/19 10:56 08/15/19 10:57 DC Sevoflurane (Ultane) 60 ml STK-MED ONCE 08/15/19 12:26 08/15/19 12:27 DC Sodium Bicarbonate 50 meq/Sodium Chloride 1,050 ml @ 75 mls/hr Q14H 07/06/19 07:30 07/11/19 10:28 DC 07/10/19 21:10 75 MLS/HR Sodium Acetate 50 meq/Potassium Acetate 55 meq/ Magnesium Sulfate 20 meq/Calcium Gluconate 10 meq/ Multivitamins 10 ml/Chromium/ Copper/Manganese/ Seleni/Zn 0.5 ml/ Insulin Human Regular 35 unit/ Total Parenteral Nutrition/Amino Acids/Dextrose/ Fat Emulsion Intravenous 1,800 ml @ 75 mls/hr TPN CONT 08/13/19 22:00 08/14/19 21:59 DC 08/13/19 22:03 75 MLS/HR Sodium Chloride 1,000 ml @ 25 mls/hr Q24H 08/15/19 14:30 UNV Sodium Chloride (Normal Saline Flush) 3 ml QSHIFT PRN 08/15/19 13:45 Sodium Chloride 90 meq/Calcium Gluconate 10 meq/ Multivitamins 10 ml/Chromium/ Copper/Manganese/ Seleni/Zn 0.5 ml/ Total Parenteral Nutrition/Amino Acids/Dextrose/ Fat Emulsion Intravenous 1,512 ml @ 63 mls/hr TPN CONT 07/06/19 22:00 07/07/19 21:59 DC 07/06/19 22:06 63 MLS/HR Sodium Chloride 90 meq/Calcium Gluconate 10 meq/ Multivitamins 10 ml/Chromium/ Copper/Manganese/ Seleni/Zn 1 ml/ Total Parenteral Nutrition/Amino Acids/Dextrose/ Fat Emulsion Intravenous 55.005 ml @ 2.292 mls/hr TPN CONT 07/06/19 22:00 07/06/19 12:33 DC Sodium Chloride 90 meq/Magnesium Sulfate 10 meq/ Calcium Gluconate 20 meq/ Multivitamins 10 ml/Chromium/ Copper/Manganese/ Seleni/Zn 0.5 ml/ Total Parenteral Nutrition/Amino Acids/Dextrose/ Fat Emulsion Intravenous 1,512 ml @ 63 mls/hr TPN CONT 07/07/19 22:00 07/08/19 21:59 DC 07/07/19 22:25 63 MLS/HR Sodium Chloride 90 meq/Magnesium Sulfate 12 meq/ Calcium Gluconate 15 meq/ Multivitamins 10 ml/Chromium/ Copper/Manganese/ Seleni/Zn 0.5 ml/ Insulin Human Regular 25 unit/ Total Parenteral Nutrition/Amino Acids/Dextrose/ Fat Emulsion Intravenous 1,400 ml @ 58.333 mls/ hr TPN CONT 07/27/19 22:00 07/28/19 21:59 DC 07/27/19 21:41 58.333 MLS/HR Sodium Chloride 90 meq/Potassium Chloride 15 meq/ Magnesium Sulfate 12 meq/Calcium Gluconate 15 meq/ Multivitamins 10 ml/Chromium/ Copper/Manganese/ Seleni/Zn 0.5 ml/ Insulin Human Regular 25 unit/ Total Parenteral Nutrition/Amino Acids/Dextrose/ Fat Emulsion Intravenous 1,400 ml @ 58.333 mls/ hr TPN CONT 07/26/19 22:00 4/8/20 21:59 DC 07/26/19 22:13 58.333 MLS/HR Sodium Chloride 90 meq/Potassium Chloride 15 meq/ Potassium Phosphate 10 mmol/ Magnesium Sulfate 8 meq/Calcium Gluconate 15 meq/ Multivitamins 10 ml/Chromium/ Copper/Manganese/ Seleni/Zn 0.5 ml/ Insulin Human Regular 25 unit/ Total Parenteral Nutrition/Amino Acids/Dextrose/ Fat Emulsion Intravenous 1,400 ml @ 58.333 mls/ hr TPN CONT 07/24/19 22:00 07/25/19 21:59 DC 07/24/19 21:20 58.333 MLS/HR Sodium Chloride 90 meq/Potassium Chloride 15 meq/ Potassium Phosphate 10 mmol/ Magnesium Sulfate 10 meq/Calcium Gluconate 20 meq/ Multivitamins 10 ml/Chromium/ Copper/Manganese/ Seleni/Zn 0.5 ml/ Total Parenteral Nutrition/Amino Acids/Dextrose/ Fat Emulsion Intravenous 1,400 ml @ 58.333 mls/ hr TPN CONT 07/11/19 22:00 07/12/19 21:59 DC 07/11/19 21:42 58.333 MLS/HR Sodium Chloride 90 meq/Potassium Chloride 15 meq/ Potassium Phosphate 10 mmol/ Magnesium Sulfate 12 meq/Calcium Gluconate 15 meq/ Multivitamins 10 ml/Chromium/ Copper/Manganese/ Seleni/Zn 0.5 ml/ Insulin Human Regular 25 unit/ Total Parenteral Nutrition/Amino Acids/Dextrose/ Fat Emulsion Intravenous 1,400 ml @ 58.333 mls/ hr TPN CONT 07/25/19 22:00 07/26/19 21:59 DC 07/25/19 22:24 58.333 MLS/HR Sodium Chloride 90 meq/Potassium Chloride 15 meq/ Potassium Phosphate 15 mmol/ Magnesium Sulfate 10 meq/Calcium Gluconate 15 meq/ Multivitamins 10 ml/Chromium/ Copper/Manganese/ Seleni/Zn 0.5 ml/ Total Parenteral Nutrition/Amino Acids/Dextrose/ Fat Emulsion Intravenous 1,400 ml @ 58.333 mls/ hr TPN CONT 07/12/19 22:00 07/13/19 21:59 DC 07/12/19 22:17 58.333 MLS/HR Sodium Chloride 90 meq/Potassium Chloride 15 meq/ Potassium Phosphate 15 mmol/ Magnesium Sulfate 10 meq/Calcium Gluconate 20 meq/ Multivitamins 10 ml/Chromium/ Copper/Manganese/ Seleni/Zn 0.5 ml/ Total Parenteral Nutrition/Amino Acids/Dextrose/ Fat Emulsion Intravenous 1,200 ml @ 50 mls/hr TPN CONT 07/10/19 22:00 07/10/19 14:17 DC Sodium Chloride 90 meq/Potassium Chloride 15 meq/ Potassium Phosphate 18 mmol/ Magnesium Sulfate 8 meq/Calcium Gluconate 15 meq/ Multivitamins 10 ml/Chromium/ Copper/Manganese/ Seleni/Zn 0.5 ml/ Insulin Human Regular 10 unit/ Total Parenteral Nutrition/Amino Acids/Dextrose/ Fat Emulsion Intravenous 1,400 ml @ 58.333 mls/ hr TPN CONT 07/15/19 22:00 07/16/19 21:59 DC 07/15/19 21:43 58.333 MLS/HR Sodium Chloride 90 meq/Potassium Chloride 15 meq/ Potassium Phosphate 18 mmol/ Magnesium Sulfate 8 meq/Calcium Gluconate 15 meq/ Multivitamins 10 ml/Chromium/ Copper/Manganese/ Seleni/Zn 0.5 ml/ Insulin Human Regular 15 unit/ Total Parenteral Nutrition/Amino Acids/Dextrose/ Fat Emulsion Intravenous 1,400 ml @ 58.333 mls/ hr TPN CONT 07/18/19 22:00 07/19/19 21:59 DC 07/18/19 21:47 58.333 MLS/HR Sodium Chloride 90 meq/Potassium Chloride 15 meq/ Potassium Phosphate 18 mmol/ Magnesium Sulfate 8 meq/Calcium Gluconate 15 meq/ Multivitamins 10 ml/Chromium/ Copper/Manganese/ Seleni/Zn 0.5 ml/ Insulin Human Regular 20 unit/ Total Parenteral Nutrition/Amino Acids/Dextrose/ Fat Emulsion Intravenous 1,400 ml @ 58.333 mls/ hr TPN CONT 07/21/19 22:00 07/22/19 21:59 DC 07/21/19 22:45 58.333 MLS/HR Sodium Chloride 90 meq/Potassium Chloride 15 meq/ Potassium Phosphate 18 mmol/ Magnesium Sulfate 8 meq/Calcium Gluconate 15 meq/ Multivitamins 10 ml/Chromium/ Copper/Manganese/ Seleni/Zn 0.5 ml/ Total Parenteral Nutrition/Amino Acids/Dextrose/ Fat Emulsion Intravenous 1,400 ml @ 58.333 mls/ hr TPN CONT 07/14/19 22:00 07/15/19 21:59 DC 07/14/19 22:00 58.333 MLS/HR Sodium Chloride 90 meq/Potassium Phosphate 15 mmol/ Magnesium Sulfate 12 meq/Calcium Gluconate 15 meq/ Multivitamins 10 ml/Chromium/ Copper/Manganese/ Seleni/Zn 0.5 ml/ Insulin Human Regular 30 unit/ Total Parenteral Nutrition/Amino Acids/Dextrose/ Fat Emulsion Intravenous 1,400 ml @ 58.333 mls/ hr TPN CONT 07/29/19 22:00 07/30/19 21:59 DC 07/29/19 21:49 58.333 MLS/HR Sodium Chloride 90 meq/Potassium Phosphate 15 mmol/ Magnesium Sulfate 12 meq/Calcium Gluconate 15 meq/ Multivitamins 10 ml/Chromium/ Copper/Manganese/ Seleni/Zn 0.5 ml/ Insulin Human Regular 40 unit/ Total Parenteral Nutrition/Amino Acids/Dextrose/ Fat Emulsion Intravenous 1,400 ml @ 58.333 mls/ hr TPN CONT 07/30/19 22:00 07/31/19 21:59 DC 07/30/19 21:21 58.333 MLS/HR Sodium Chloride 90 meq/Potassium Phosphate 19 mmol/ Magnesium Sulfate 12 meq/Calcium Gluconate 15 meq/ Multivitamins 10 ml/Chromium/ Copper/Manganese/ Seleni/Zn 0.5 ml/ Insulin Human Regular 40 unit/ Total Parenteral Nutrition/Amino Acids/Dextrose/ Fat Emulsion Intravenous 1,400 ml @ 58.333 mls/ hr TPN CONT 07/31/19 22:00 08/01/19 21:59 DC 07/31/19 21:54 58.333 MLS/HR Sodium Chloride 90 meq/Potassium Phosphate 5 mmol/ Magnesium Sulfate 12 meq/Calcium Gluconate 15 meq/ Multivitamins 10 ml/Chromium/ Copper/Manganese/ Seleni/Zn 0.5 ml/ Insulin Human Regular 30 unit/ Total Parenteral Nutrition/Amino Acids/Dextrose/ Fat Emulsion Intravenous 1,400 ml @ 58.333 mls/ hr TPN CONT 07/28/19 22:00 07/29/19 21:59 DC 07/28/19 22:08 58.333 MLS/HR Sodium Chloride 100 meq/Potassium Chloride 40 meq/ Magnesium Sulfate 15 meq/Calcium Gluconate 15 meq/ Multivitamins 10 ml/Chromium/ Copper/Manganese/ Seleni/Zn 0.5 ml/ Insulin Human Regular 35 unit/ Total Parenteral Nutrition/Amino Acids/Dextrose/ Fat Emulsion Intravenous 1,400 ml @ 58.333 mls/ hr TPN CONT 08/07/19 22:00 08/08/19 21:59 DC 08/07/19 22:46 58.333 MLS/HR Sodium Chloride 100 meq/Potassium Chloride 40 meq/ Magnesium Sulfate 20 meq/Calcium Gluconate 10 meq/ Multivitamins 10 ml/Chromium/ Copper/Manganese/ Seleni/Zn 0.5 ml/ Insulin Human Regular 35 unit/ Total Parenteral Nutrition/Amino Acids/Dextrose/ Fat Emulsion Intravenous 1,400 ml @ 58.333 mls/ hr TPN CONT 08/11/19 22:00 08/12/19 21:59 DC 08/12/19 00:06 58.333 MLS/HR Sodium Chloride 100 meq/Potassium Chloride 40 meq/ Magnesium Sulfate 20 meq/Calcium Gluconate 15 meq/ Multivitamins 10 ml/Chromium/ Copper/Manganese/ Seleni/Zn 0.5 ml/ Insulin Human Regular 35 unit/ Total Parenteral Nutrition/Amino Acids/Dextrose/ Fat Emulsion Intravenous 1,400 ml @ 58.333 mls/ hr TPN CONT 08/10/19 22:00 08/11/19 21:59 DC 08/10/19 22:27 58.333 MLS/HR Sodium Chloride 100 meq/Potassium Phosphate 10 mmol/ Magnesium Sulfate 12 meq/Calcium Gluconate 15 meq/ Multivitamins 10 ml/Chromium/ Copper/Manganese/ Seleni/Zn 0.5 ml/ Insulin Human Regular 35 unit/ Potassium Chloride 20 meq/ Total Parenteral Nutrition/Amino Acids/Dextrose/ Fat Emulsion Intravenous 1,400 ml @ 58.333 mls/ hr TPN CONT 08/04/19 22:00 08/05/19 21:59 DC 08/04/19 22:10 58.333 MLS/HR Sodium Chloride 100 meq/Potassium Phosphate 19 mmol/ Magnesium Sulfate 12 meq/Calcium Gluconate 15 meq/ Multivitamins 10 ml/Chromium/ Copper/Manganese/ Seleni/Zn 0.5 ml/ Insulin Human Regular 40 unit/ Potassium Chloride 20 meq/ Total Parenteral Nutrition/Amino Acids/Dextrose/ Fat Emulsion Intravenous 1,400 ml @ 58.333 mls/ hr TPN CONT 08/03/19 22:00 08/04/19 21:59 DC 08/03/19 21:20 58.333 MLS/HR Sodium Chloride 100 meq/Potassium Phosphate 5 mmol/ Magnesium Sulfate 12 meq/Calcium Gluconate 15 meq/ Multivitamins 10 ml/Chromium/ Copper/Manganese/ Seleni/Zn 0.5 ml/ Insulin Human Regular 35 unit/ Potassium Chloride 20 meq/ Total Parenteral Nutrition/Amino Acids/Dextrose/ Fat Emulsion Intravenous 1,400 ml @ 58.333 mls/ hr TPN CONT 08/05/19 22:00 08/06/19 21:59 DC 08/05/19 22:59 58.333 MLS/HR Succinylcholine Chloride (Anectine) 120 mg 1X ONCE 07/11/19 08:30 07/11/19 08:31 DC 07/11/19 08:34 120 MG Lab Laboratory Tests Test 08/22/19 11:58 08/22/19 18:17 08/23/19 00:21 08/23/19 06:35 Glucose (Fingerstick) 182 mg/dL (70-99) 145 mg/dL (70-99) 153 mg/dL (70-99) White Blood Count 7.3 x10^3/uL (4.0-11.0) Red Blood Count 2.55 x10^6/uL (3.50-5.40) Hemoglobin 7.3 g/dL (12.0-15.5) Hematocrit 23.2 % (36.0-47.0) Mean Corpuscular Volume 91 fL (79-100) Mean Corpuscular Hemoglobin 29 pg (25-35) Mean Corpuscular Hemoglobin Concent 32 g/dL (31-37) Red Cell Distribution Width 18.5 % (11.5-14.5) Platelet Count 370 x10^3/uL (140-400) Neutrophils (%) (Auto) 75 % (31-73) Lymphocytes (%) (Auto) 17 % (24-48) Monocytes (%) (Auto) 5 % (0-9) Eosinophils (%) (Auto) 3 % (0-3) Basophils (%) (Auto) 1 % (0-3) Neutrophils # (Auto) 5.5 x10^3/uL (1.8-7.7) Lymphocytes # (Auto) 1.2 x10^3/uL (1.0-4.8) Monocytes # (Auto) 0.4 x10^3/uL (0.0-1.1) Eosinophils # (Auto) 0.2 x10^3/uL (0.0-0.7) Basophils # (Auto) 0.0 x10^3/uL (0.0-0.2) Sodium Level 153 mmol/L (136-145) Potassium Level 4.1 mmol/L (3.5-5.1) Chloride Level 114 mmol/L (98-107) Carbon Dioxide Level 33 mmol/L (21-32) Anion Gap 6 (6-14) Blood Urea Nitrogen 41 mg/dL (7-20) Creatinine 0.9 mg/dL (0.6-1.0) Estimated GFR (Cockcroft-Gault) 66.5 Glucose Level 104 mg/dL (70-99) Calcium Level 8.6 mg/dL (8.5-10.1) Phosphorus Level 3.2 mg/dL (2.6-4.7) Magnesium Level 2.0 mg/dL (1.8-2.4) Test 08/23/19 06:38 Glucose (Fingerstick) 102 mg/dL (70-99) Results All relevant outside records, renal labs, imaging studies, telemetry/EKG's were reviewed. Other CT abdomen 08/21 KIDNEYS & URETERS: Developing right great 2 hydronephrosis. No radiopaque stones. BLADDER: Obscured by large ascites REPRODUCTIVE ORGANS: Unremarkable GASTROINTESTINAL: No findings of bowel obstruction, perforation or acute inflammation. Bowel contents show increased density and large bowel that could reflect dilute blood or residual of previous enteric contrast ingestion. The appendix is normal. MESENTERY/PERITONEUM/RETROPERITONEUM: Trace drain has been placed within the ventral abdominal wall, with successful evacuation near completion of the previously evident ventral abdominal wall fluid collection. There remains a large, irregular fluid collection in the mesentery and right extraperitoneal soft tissues superficial to the right psoas muscle that appears slightly larger in the interval there is also slightly greater extraperitoneal fluid between the peritoneum and the left flank musculature. VASCULAR: Unremarkable LYMPH NODES: No adenopathy OSSEOUS & SOFT TISSUES: Unremarkable IMPRESSION: 1. Findings consistent with sequelae of severe acute pancreatitis with enlarging peripancreatic and intra-abdominal fluid collections as described 2. Interval placement of a drain in the ventral abdominal wall with and partial evacuation of the ventral extraperitoneal fluid collection previously evident. VERENA KENT MD August 23, 2019 10:35
[2019-08-23] MEDS: DAPTOMYCIN IV SCH (11:28)
[2019-08-23] MEDS: NORMAL SALINE IV SCH (11:28)
[2019-08-23] MEDS: TPN PER PHARMACY MC PRN (11:41)
--- NOTE | 2019-08-23 11:43 | NUR ---
Pharmacy TPN Dosing Note S: SCOTT AVILA is a 48 year old F Currently receiving Central Continuous TPN started 07/06/19 B:Pertinent PMH: Necrotizing pancreatitis Height: 5 feet, 8 inches Weight: 106.306414 kg Current diet: NPO LABS: Sodium: 153 Potassium: 4.1 Chloride: 114 Calcium: 8.6 Corrected Calcium: 10.36 Magnesium: 2 CO2: 33 SCr: 0.9 Glucose: 102-153 Albumin: 1.8 AST: 21 ALT: 11 TPN FORMULA: TPN TYPE: Central Continuous AMINO ACIDS: 90 gm DEXTROSE: 225 gm LIPIDS: 30 gm POTASSIUM CHLORIDE: 75 mEq MAGNESIUM: 15 mEq CALCIUM: 8 mEq INSULIN: 20 units MULTIPLE VITAMIN: 10 ml TRACE ELEMENTS: 0.5 ml(s) TPN PLAN: Decrease insulin to 20 units in the TPN as BG was low this AM. R: Change TPN as noted above. Will monitor electrolytes, glucose, and tolerance to TPN. MIKAYLA CHU Katya, 08/23/19 1144
[2019-08-23] MEDS: MICAFUNGIN 100 MG in IV DEXTROSE 5% 100ML 100 ML IV SCH (12:21)
[2019-08-23] MEDS: IV NORMAL SALINE 1000ML BAG 1,000 ML IV SCH (13:37)
--- NOTE | 2019-08-23 14:04 | PDOC ---
PROGRESS NOTES Chief Complaint Chief Complaint Acute hypoxic Respiratory failure requiring mechanical ventilation (on vent since 07/10) Tracheostomy bilateral pleural effusions/pulm edema Sepsis Severe Acute gallstone pancreatitis (not a surgical candidate at this time) with necrosis Acute kidney failure now requiring dialysis Salpingitis Gallstones (Calculus of gallbladder with acute cholecystitis without obstruction) HTN Leukocytosis Hypoxia Uterine fibroid Intractable pain Intractable nausea Covid 19 negative. Acute on chronic anemia EEG: No seizure activity ESRD on HD Hyperglycemia Plan: Continue with supportive measures No surgical plans as of yet We will continue to follow History of Present Illness History of Present Illness Ms Diaz is a 48yo F w/ PMHx HTN, prediabetes who presented to the emergency room with complaints of abdominal pain on 07/04/2019. Found with Lipase 91481, AST 401, ALT 249, Bilirubin 1.4. CT abdomen confirms pancreatic inflammation, peripancreatic fluid and inflammatory changes around the pancreas consistent with pancreatitis. Cholelithiasis and 1.4cm uterine fibroid as well as possible left salpingitis. Admitted for further care GI, General surgery, ID, Pulm consulted. 07/04: PICC placed per IR. Renal US negative. Started on levophed. Repeat CT abdomen w/ necrosis; 07/05: Dialysis catheter per nephrology; 07/06: On BiPAP; 07/07: BiPAP, dialysis; 07/08: Overnight Tmax 101.7 , still on BiPAP FiO2 40%, sti ll on low dose Levophed gtt, TPN initiated. On dialysis 07/24: Tracheostomy; 07/30: S/p tracheostomy on vent spontaneous respirations with 5 of pressure support 35% FiO2, rectal tube and a Lind, off pressors; 08/01:Still on vent via trach. Removed PICC and CVC LIJ and replaced. CT chest/abd/pelvis with bilateral pleural effusion and ascites. 08/02: Renal function stable. Still on vent. More interactive today. Miming wish for food. Plan discussed for thoracentesis/paracentesis with daughters today. They were under impression patient was doing worse due to a miscommunication which has been clarified over the phone. 4.3L removed. 08/04: Febrile overnight 101.8F. More interactive, still on vent. Asking for ice by miming; 08/05: Afebrile overnight. TMax last 24 hours 100.6F. Hb 7.1. Interactive when awake. 08/09: Transfusion 1u PRBC (6U total since admit) 08/10-08/13: TPN and precedex, vent. 08/14: Tmax 101F overnight. Hb 8.2. HD cath out since 08/11. Alert. On vent SIMV 35% FiO2. Surgery: ex-lap, no ronel or pancreatic necrosectomy 2/2 profound inflammation. 08/15: Seen POD #1. Afebrile overnight. BUN 62. CBC WNL today.Remains on vent via trach, TPN. Able to point today and indicate she wishes her daughters and Jamaal to be involved in her care. 08/16: Hb 7.4, Na 151. Remains on vent via trach, TPN. off HD for now. Not tolerating trach shield well. 08/17: Negative US for UE DVT. More relaxed today. Has some increase in UOP. Tolerating vent well. She is requesting to eat and drink via writing. T max 100F 24 hours ago, but 101F at 1200. Right PICC placed. Speaking valve for half the day in [facility] 08/18: Na 153 today. Good UOP. Tmax 101F at 1200 on 08/17. She becomes a bit anxious and did not sleep much last night, wishes to try to sleep this morning 08/19: Able to speak well with speaking valve today. Na 153, K2.9, Mg 1.8, Cr 1. 100.4F axillary temp overnight. Asking for food. 08/20: Afebrile overnight. ABG with pH 7.27/75/123. Hb 7.1. Na 153. ECMO SPECIALIST settings decreased 08/21: No acute events reported overnight, case discussed with nursing staff patient in no acute distress no complaints during my visit 08/22: Patient responding to verbal stimuli. She is saturating well and not requiring ventilation support, no acute events reported overnight seems to be slowly improving Plan: Cont vent weaning. will need BIPAP Decrease opioids, may need to d/c ECMO SPECIALIST. Would favor long active basal fentanyl patch 12.5mg and Q3hr prn dilaudid 1mg, will d/w general surgery. Trach shield and speaking valve during day when awake. Would recommend ABG after 4 hours to r/o CO2 retention, however and still vent overnight Monitor fever curve, no obvious source of infection, possibly some aspiration events, atelectasis Vitals Vitals Vital Signs Date Time Temp Pulse Resp B/P (MAP) Pulse Ox O2 Delivery O2 Flow Rate FiO2 08/23/19 13:16 96 30 117/60 (79) 99 Tracheal Collar 08/23/19 12:00 10.0 08/23/19 12:00 98.5 98.5 Physical Exam Physical Exam GENERAL: Propped up in bed, Alert. weak appearing but not toxic HEENT: Pupils equal, + NGT, oral cavity dry NECK: Trach/vent LUNGS: rhonchi HEART: S1, S2, regular ABDOMEN: Distended, hypoactive BS, drain placement (08/14 - serous fluid) : Lind (08/01) EXTREMITIES: Generalized edema, no cyanosis, SCDs bilaterally DERMATOLOGIC: Warm and dry. No generalized rash. CENTRAL NERVOUS SYSTEM: Extremely weak, mouthing words to simple questions PICC line in place August 18, 2019 clean HDC has been removed LIJ removed General: Alert, mild distress Heart: Regular rate, No murmurs Lungs: Crackles Abdomen: Soft, Other (mild TTP, drain with serous output) Extremities: No edema Skin: Other (mottling noted to extremities ) Labs LABS Laboratory Tests Test 08/22/19 18:17 08/23/19 00:21 08/23/19 06:35 08/23/19 06:38 Glucose (Fingerstick) 145 mg/dL (70-99) 153 mg/dL (70-99) 102 mg/dL (70-99) White Blood Count 7.3 x10^3/uL (4.0-11.0) Red Blood Count 2.55 x10^6/uL (3.50-5.40) Hemoglobin 7.3 g/dL (12.0-15.5) Hematocrit 23.2 % (36.0-47.0) Mean Corpuscular Volume 91 fL (79-100) Mean Corpuscular Hemoglobin 29 pg (25-35) Mean Corpuscular Hemoglobin Concent 32 g/dL (31-37) Red Cell Distribution Width 18.5 % (11.5-14.5) Platelet Count 370 x10^3/uL (140-400) Neutrophils (%) (Auto) 75 % (31-73) Lymphocytes (%) (Auto) 17 % (24-48) Monocytes (%) (Auto) 5 % (0-9) Eosinophils (%) (Auto) 3 % (0-3) Basophils (%) (Auto) 1 % (0-3) Neutrophils # (Auto) 5.5 x10^3/uL (1.8-7.7) Lymphocytes # (Auto) 1.2 x10^3/uL (1.0-4.8) Monocytes # (Auto) 0.4 x10^3/uL (0.0-1.1) Eosinophils # (Auto) 0.2 x10^3/uL (0.0-0.7) Basophils # (Auto) 0.0 x10^3/uL (0.0-0.2) Sodium Level 153 mmol/L (136-145) Potassium Level 4.1 mmol/L (3.5-5.1) Chloride Level 114 mmol/L (98-107) Carbon Dioxide Level 33 mmol/L (21-32) Anion Gap 6 (6-14) Blood Urea Nitrogen 41 mg/dL (7-20) Creatinine 0.9 mg/dL (0.6-1.0) Estimated GFR (Cockcroft-Gault) 66.5 Glucose Level 104 mg/dL (70-99) Calcium Level 8.6 mg/dL (8.5-10.1) Phosphorus Level 3.2 mg/dL (2.6-4.7) Magnesium Level 2.0 mg/dL (1.8-2.4) Test 08/23/19 12:18 Glucose (Fingerstick) 147 mg/dL (70-99) Assessment and Plan Assessmemt and Plan Problems Medical Problems: (1) Acute pancreatitis Status: Acute (2) Cholelithiasis Status: Acute Comment Review of Relevant I have reviewed the following items kolby (where applicable) has been applied. Labs Laboratory Tests Test 08/21/19 16:09 08/21/19 17:57 08/22/19 06:10 08/22/19 06:15 O2 Saturation 93 % (92-99) Arterial Blood pH 7.47 (7.35-7.45) Arterial Blood pCO2 at Patient Temp 49 mmHg (35-46) Arterial Blood pO2 at Patient Temp 73 mmHg (75-108) Arterial Blood HCO3 35 mmol/L (21-28) Arterial Blood Base Excess 10 mmol/L (-3-3) Oxyhemoglobin 92.7 % Methemoglobin 0.4 % (0.0-1.9) Carbon Monoxide, Quantitative 0.3 % (0.0-1.9) FiO2 30 Glucose (Fingerstick) 148 mg/dL (70-99) 153 mg/dL (70-99) Sodium Level 154 mmol/L (136-145) Potassium Level 4.0 mmol/L (3.5-5.1) Chloride Level 114 mmol/L (98-107) Carbon Dioxide Level 33 mmol/L (21-32) Anion Gap 7 (6-14) Blood Urea Nitrogen 45 mg/dL (7-20) Creatinine 0.9 mg/dL (0.6-1.0) Estimated GFR (Cockcroft-Gault) 66.5 BUN/Creatinine Ratio 50 (6-20) Glucose Level 164 mg/dL (70-99) Calcium Level 8.8 mg/dL (8.5-10.1) Phosphorus Level 3.4 mg/dL (2.6-4.7) Magnesium Level 2.2 mg/dL (1.8-2.4) Total Bilirubin 0.5 mg/dL (0.2-1.0) Aspartate Amino Transf (AST/SGOT) 39 U/L (15-37) Alanine Aminotransferase (ALT/SGPT) 36 U/L (14-59) Alkaline Phosphatase 127 U/L (46-116) Total Protein 5.6 g/dL (6.4-8.2) Albumin 1.8 g/dL (3.4-5.0) Albumin/Globulin Ratio 0.5 (1.0-1.7) Triglycerides Level 174 mg/dL (0-150) Test 08/22/19 10:30 08/22/19 11:58 08/22/19 18:17 08/23/19 00:21 White Blood Count 9.9 x10^3/uL (4.0-11.0) Red Blood Count 2.49 x10^6/uL (3.50-5.40) Hemoglobin 7.1 g/dL (12.0-15.5) Hematocrit 22.7 % (36.0-47.0) Mean Corpuscular Volume 91 fL (79-100) Mean Corpuscular Hemoglobin 29 pg (25-35) Mean Corpuscular Hemoglobin Concent 31 g/dL (31-37) Red Cell Distribution Width 18.9 % (11.5-14.5) Platelet Count 458 x10^3/uL (140-400) Neutrophils (%) (Auto) 74 % (31-73) Lymphocytes (%) (Auto) 19 % (24-48) Monocytes (%) (Auto) 5 % (0-9) Eosinophils (%) (Auto) 2 % (0-3) Basophils (%) (Auto) 0 % (0-3) Neutrophils # (Auto) 7.3 x10^3/uL (1.8-7.7) Lymphocytes # (Auto) 1.9 x10^3/uL (1.0-4.8) Monocytes # (Auto) 0.5 x10^3/uL (0.0-1.1) Eosinophils # (Auto) 0.1 x10^3/uL (0.0-0.7) Basophils # (Auto) 0.0 x10^3/uL (0.0-0.2) Glucose (Fingerstick) 182 mg/dL (70-99) 145 mg/dL (70-99) 153 mg/dL (70-99) Test 08/23/19 06:35 08/23/19 06:38 08/23/19 12:18 White Blood Count 7.3 x10^3/uL (4.0-11.0) Red Blood Count 2.55 x10^6/uL (3.50-5.40) Hemoglobin 7.3 g/dL (12.0-15.5) Hematocrit 23.2 % (36.0-47.0) Mean Corpuscular Volume 91 fL (79-100) Mean Corpuscular Hemoglobin 29 pg (25-35) Mean Corpuscular Hemoglobin Concent 32 g/dL (31-37) Red Cell Distribution Width 18.5 % (11.5-14.5) Platelet Count 370 x10^3/uL (140-400) Neutrophils (%) (Auto) 75 % (31-73) Lymphocytes (%) (Auto) 17 % (24-48) Monocytes (%) (Auto) 5 % (0-9) Eosinophils (%) (Auto) 3 % (0-3) Basophils (%) (Auto) 1 % (0-3) Neutrophils # (Auto) 5.5 x10^3/uL (1.8-7.7) Lymphocytes # (Auto) 1.2 x10^3/uL (1.0-4.8) Monocytes # (Auto) 0.4 x10^3/uL (0.0-1.1) Eosinophils # (Auto) 0.2 x10^3/uL (0.0-0.7) Basophils # (Auto) 0.0 x10^3/uL (0.0-0.2) Sodium Level 153 mmol/L (136-145) Potassium Level 4.1 mmol/L (3.5-5.1) Chloride Level 114 mmol/L (98-107) Carbon Dioxide Level 33 mmol/L (21-32) Anion Gap 6 (6-14) Blood Urea Nitrogen 41 mg/dL (7-20) Creatinine 0.9 mg/dL (0.6-1.0) Estimated GFR (Cockcroft-Gault) 66.5 Glucose Level 104 mg/dL (70-99) Calcium Level 8.6 mg/dL (8.5-10.1) Phosphorus Level 3.2 mg/dL (2.6-4.7) Magnesium Level 2.0 mg/dL (1.8-2.4) Glucose (Fingerstick) 102 mg/dL (70-99) 147 mg/dL (70-99) Laboratory Tests Test 08/22/19 18:17 08/23/19 00:21 08/23/19 06:35 08/23/19 06:38 Glucose (Fingerstick) 145 mg/dL (70-99) 153 mg/dL (70-99) 102 mg/dL (70-99) White Blood Count 7.3 x10^3/uL (4.0-11.0) Red Blood Count 2.55 x10^6/uL (3.50-5.40) Hemoglobin 7.3 g/dL (12.0-15.5) Hematocrit 23.2 % (36.0-47.0) Mean Corpuscular Volume 91 fL (79-100) Mean Corpuscular Hemoglobin 29 pg (25-35) Mean Corpuscular Hemoglobin Concent 32 g/dL (31-37) Red Cell Distribution Width 18.5 % (11.5-14.5) Platelet Count 370 x10^3/uL (140-400) Neutrophils (%) (Auto) 75 % (31-73) Lymphocytes (%) (Auto) 17 % (24-48) Monocytes (%) (Auto) 5 % (0-9) Eosinophils (%) (Auto) 3 % (0-3) Basophils (%) (Auto) 1 % (0-3) Neutrophils # (Auto) 5.5 x10^3/uL (1.8-7.7) Lymphocytes # (Auto) 1.2 x10^3/uL (1.0-4.8) Monocytes # (Auto) 0.4 x10^3/uL (0.0-1.1) Eosinophils # (Auto) 0.2 x10^3/uL (0.0-0.7) Basophils # (Auto) 0.0 x10^3/uL (0.0-0.2) Sodium Level 153 mmol/L (136-145) Potassium Level 4.1 mmol/L (3.5-5.1) Chloride Level 114 mmol/L (98-107) Carbon Dioxide Level 33 mmol/L (21-32) Anion Gap 6 (6-14) Blood Urea Nitrogen 41 mg/dL (7-20) Creatinine 0.9 mg/dL (0.6-1.0) Estimated GFR (Cockcroft-Gault) 66.5 Glucose Level 104 mg/dL (70-99) Calcium Level 8.6 mg/dL (8.5-10.1) Phosphorus Level 3.2 mg/dL (2.6-4.7) Magnesium Level 2.0 mg/dL (1.8-2.4) Test 08/23/19 12:18 Glucose (Fingerstick) 147 mg/dL (70-99) Microbiology 08/22/19 Blood Culture - Preliminary, Resulted NO GROWTH AFTER 1 DAY 08/18/19 Aerobic Culture - Final, Complete 08/18/19 Aerobic Culture Result 1 (ALEXANDRA) - Final, Complete 08/18/19 Gram Stain - Final, Complete 08/18/19 Gram Stain Result 1 (ALEXANDRA) - Final, Complete 08/18/19 Gram Stain Result 2 (ALEXANDRA) - Final, Complete 08/15/19 Aerobic and Anaerobic Culture - Final, Complete 08/15/19 Anaerobic Culture Result 1 (ALEXANDRA) - Final, Complete 08/15/19 Aerobic Culture - Final, Complete 08/15/19 Aerobic Culture Result 1 (ALEXANDRA) - Final, Complete 08/15/19 Gram Stain - Final, Complete 08/15/19 Gram Stain Result 1 (ALEXANDRA) - Final, Complete 08/15/19 Gram Stain Result 2 (ALEXANDRA) - Final, Complete 07/31/19 Urine Culture - Final, Complete 07/31/19 Urine Culture Result 1 (ALEXANDRA) - Final, Complete Medications Current Medications Sodium Chloride 1,000 ml @ 1,000 mls/hr Q1H IV Last administered on 07/04/19at 03:00; Start 07/04/19 at 03:00; Stop 07/04/19 at 03:59; Status DC Ondansetron HCl (Zofran) 4 mg 1X ONCE IVP Last administered on 07/04/19at 03:27; Start 07/04/19 at 03:00; Stop 07/04/19 at 03:01; Status DC Morphine Sulfate (Morphine Sulfate) 4 mg 1X ONCE IV ; Start 07/04/19 at 03:00; Stop 07/04/19 at 03:01; Status Cancel Ketorolac Tromethamine (Toradol 30mg Vial) 30 mg 1X ONCE IV Last administered on 07/04/19at 02:54; Start 07/04/19 at 03:00; Stop 07/04/19 at 03:01; Status DC Fentanyl Citrate (Fentanyl 2ml Vial) 25 mcg 1X ONCE IVP Last administered on 07/04/19at 03:23; Start 07/04/19 at 03:30; Stop 07/04/19 at 03:31; Status DC Fentanyl Citrate (Fentanyl 2ml Vial) 100 mcg STK-MED ONCE .ROUTE ; Start 07/04/19 at 03:18; Stop 07/04/19 at 03:18; Status DC Iohexol (Omnipaque 350 Mg/ml) 90 ml 1X ONCE IV Last administered on 07/04/19at 03:25; Start 07/04/19 at 03:30; Stop 07/04/19 at 03:31; Status DC Info (CONTRAST GIVEN -- Rx MONITORING) 1 each PRN DAILY PRN MC SEE COMMENTS; Start 07/04/19 at 03:30; Stop 07/06/19 at 03:29; Status DC Hydromorphone HCl (Dilaudid) 0.5 mg 1X ONCE IV Last administered on 07/04/19at 03:55; Start 07/04/19 at 04:30; Stop 07/04/19 at 04:32; Status DC Ondansetron HCl (Zofran) 4 mg PRN Q8HRS PRN IV NAUSEA/VOMITING 1ST CHOICE; Start 07/04/19 at 05:00; Stop 07/04/19 at 09:27; Status DC Morphine Sulfate (Morphine Sulfate) 2 mg PRN Q2HR PRN IV SEVERE PAIN 7-10 Last administered on 07/05/19at 12:26; Start 07/04/19 at 05:00; Stop 07/05/19 at 14:15; Status DC Sodium Chloride 1,000 ml @ 125 mls/hr Q8H IV Last administered on 07/04/19at 20:56; Start 07/04/19 at 05:00; Stop 07/05/19 at 04:59; Status DC Hydromorphone HCl (Dilaudid) 0.5 mg PRN Q3HRS PRN IV SEVERE PAIN 7-10 Last administered on 07/05/19at 10:06; Start 07/04/19 at 05:00; Stop 07/05/19 at 12:01; Status DC Piperacillin Sod/ Tazobactam Sod 4.5 gm/Sodium Chloride 100 ml @ 200 mls/hr 1X ONCE IV Last administered on 07/04/19at 05:44; Start 07/04/19 at 06:00; Stop at 06:29; Status DC Ondansetron HCl (Zofran) 4 mg PRN Q4HRS PRN IV NAUSEA/VOMITING 1ST CHOICE Last administered on 08/22/19at 21:18; Start 07/04/19 at 09:30 Insulin Human Lispro (HumaLOG) 0-9 UNITS Q6HRS SQ Last administered on 08/23/19at 00:00; Start 07/04/19 at 09:30 Dextrose (Dextrose 50%-Water Syringe) 12.5 gm PRN Q15MIN PRN IV SEE COMMENTS; Start 07/04/19 at 09:30 Pantoprazole Sodium (PROTONIX VIAL for IV PUSH) 40 mg DAILYAC IVP Last administered on 08/23/19at 09:11; Start 07/04/19 at 11:30 Prochlorperazine Edisylate (Compazine) 10 mg PRN Q6HRS PRN IV NAUSEA/VOMITING, 2nd CHOICE Last administered on 08/22/19at 06:06; Start 07/04/19 at 17:45 Atenolol (Tenormin) 100 mg DAILY PO ; Start 07/05/19 at 09:00; Stop 07/04/19 at 20:08; Status DC Metoprolol Tartrate (Lopressor Vial) 2.5 mg Q6HRS IVP Last administered on 07/05/19at 05:51; Start 07/04/19 at 20:15; Stop 07/05/19 at 10:02; Status DC Metoprolol Tartrate (Lopressor Vial) 5 mg Q6HRS IVP Last administered on 07/14/19at 00:12; Start 07/05/19 at 10:15; Stop 07/16/19 at 08:48; Status DC Hydromorphone HCl (Dilaudid) 1 mg PRN Q3HRS PRN IV SEVERE PAIN 7-10 Last administered on 07/11/19at 05:13; Start 07/05/19 at 12:00; Stop 07/19/19 at 00:25; Status DC Lidocaine HCl (Buffered Lidocaine 1%) 3 ml STK-MED ONCE .ROUTE ; Start 07/05/19 at 12:55; Stop 07/05/19 at 12:56; Status DC Albumin Human 500 ml @ 125 mls/hr 1X ONCE IV Last administered on 07/05/19at 14:33; Start 07/05/19 at 14:30; Stop 07/05/19 at 18:32; Status DC Norepinephrine Bitartrate 8 mg/ Dextrose 258 ml @ 17.299 mls/ hr CONT PRN IV PER PROTOCOL Last administered on 08/02/19at 12:48; Start 07/05/19 at 15:30; Stop 08/05/19 at 09:19; Status DC Sodium Chloride 1,000 ml @ 125 mls/hr Q8H IV Last administered on 07/05/19at 21:04; Start 07/05/19 at 16:00; Stop 07/06/19 at 02:42; Status DC Albumin Human 500 ml @ 125 mls/hr PRN BID PRN IV After every 2L NSS & BP < 90mm Last administered on 07/20/19at 14:21; Start 07/05/19 at 16:00 Iohexol (Omnipaque 300 Mg/ml) 60 ml 1X ONCE IV Last administered on 07/05/19at 17:20; Start 07/05/19 at 17:00; Stop 07/05/19 at 17:01; Status DC Info (CONTRAST GIVEN -- Rx MONITORING) 1 each PRN DAILY PRN MC SEE COMMENTS; Start 07/05/19 at 17:00; Stop 07/07/19 at 16:59; Status DC Meropenem 1 gm/ Sodium Chloride 100 ml @ 200 mls/hr Q8HRS IV Last administered on 07/06/19at 05:45; Start 07/05/19 at 20:00; Stop 07/06/19 at 08:48; Status DC Furosemide (Lasix) 40 mg 1X ONCE IVP Last administered on 07/05/19at 22:12; Start 07/05/19 at 22:30; Stop 07/05/19 at 22:31; Status DC Calcium Chloride 1000 mg/Sodium Chloride 110 ml @ 220 mls/hr 1X ONCE IV Last administered on 07/05/19at 22:11; Start 07/05/19 at 22:30; Stop 07/05/19 at 22:59; Status DC Albuterol Sulfate (Ventolin Neb Soln) 2.5 mg 1X ONCE NEB Last administered on 07/06/19at 00:56; Start 07/05/19 at 22:30; Stop 07/05/19 at 22:31; Status DC Insulin Human Regular (HumuLIN R VIAL) 5 unit 1X ONCE IV Last administered on 07/05/19at 22:14; Start 07/05/19 at 22:30; Stop 07/05/19 at 22:31; Status DC Magnesium Sulfate 50 ml @ 25 mls/hr 1X ONCE IV Last administered on 07/06/19at 02:57; Start 07/06/19 at 03:00; Stop 07/06/19 at 04:59; Status DC Calcium Gluconate 1000 mg/Sodium Chloride 110 ml @ 220 mls/hr 1X ONCE IV Last administered on 07/06/19at 02:46; Start 07/06/19 at 03:00; Stop 07/06/19 at 03:29; Status DC Sodium Chloride 1,000 ml @ 200 mls/hr Q5H IV Last administered on 07/06/19at 02:46; Start 07/06/19 at 03:00; Stop 07/06/19 at 10:21; Status DC Calcium Gluconate 1000 mg/Sodium Chloride 110 ml @ 220 mls/hr 1X ONCE IV Last administered on 07/06/19at 03:21; Start 07/06/19 at 03:30; Stop 07/06/19 at 03:59; Status DC Sodium Bicarbonate 50 meq/Sodium Chloride 1,050 ml @ 75 mls/hr Q14H IV Last administered on 07/10/19at 21:10; Start 07/06/19 at 07:30; Stop 07/11/19 at 10:28; Status DC Calcium Gluconate 2000 mg/Sodium Chloride 120 ml @ 220 mls/hr 1X ONCE IV Last administered on 07/06/19at 09:05; Start 07/06/19 at 07:30; Stop 07/06/19 at 08:02; Status DC Lidocaine HCl (Xylocaine-Mpf 1% 2ml Vial) 2 ml STK-MED ONCE .ROUTE ; Start 07/06/19 at 08:47; Stop 07/06/19 at 08:47; Status DC Meropenem 500 mg/ Sodium Chloride 50 ml @ 100 mls/hr Q12HR IV Last administered on 07/11/19at 21:01; Start 07/06/19 at 18:00; Stop 07/12/19 at 07:58; Status DC Lidocaine HCl (Buffered Lidocaine 1%) 3 ml STK-MED ONCE .ROUTE ; Start 07/06/19 at 09:46; Stop 07/06/19 at 09:46; Status DC Lidocaine HCl (Buffered Lidocaine 1%) 6 ml 1X ONCE INJ Last administered on 07/06/19at 10:26; Start 07/06/19 at 10:15; Stop 07/06/19 at 10:16; Status DC Info (Tpn Per Pharmacy) 1 each PRN DAILY PRN MC SEE COMMENTS Last administered on 08/23/19at 11:41; Start 07/06/19 at 12:00 Sodium Chloride 1,000 ml @ 1,000 mls/hr Q1H PRN IV hypotension; Start 07/06/19 at 12:07; Stop 07/06/19 at 18:06; Status DC Diphenhydramine HCl (Benadryl) 25 mg 1X PRN PRN IV ITCHING; Start 07/06/19 at 12:15; Stop 07/07/19 at 12:14; Status DC Diphenhydramine HCl (Benadryl) 25 mg 1X PRN PRN IV ITCHING; Start 07/06/19 at 12:15; Stop 07/07/19 at 12:14; Status DC Sodium Chloride 1,000 ml @ 400 mls/hr Q2H30M PRN IV PATENCY; Start 07/06/19 at 12:07; Stop 07/07/19 at 00:06; Status DC Info (PHARMACY MONITORING -- do not chart) 1 each PRN DAILY PRN MC SEE COMMENTS; Start 07/06/19 at 12:15; Stop 07/08/19 at 08:13; Status DC Sodium Chloride 90 meq/Calcium Gluconate 10 meq/ Multivitamins 10 ml/Chromium/ Copper/Manganese/ Seleni/Zn 1 ml/ Total Parenteral Nutrition/Amino A cids/Dextrose/ Fat Emulsion Intravenous 55.005 ml @ 2.292 mls/hr TPN CONT IV ; Start 07/06/19 at 22:00; Stop 07/06/19 at 12:33; Status DC Info (Tpn Per Pharmacy) 1 each PRN DAILY PRN MC SEE COMMENTS; Start 07/06/19 at 12:30; Status UNV Sodium Chloride 90 meq/Calcium Gluconate 10 meq/ Multivitamins 10 ml/Chromium/ Copper/Manganese/ Seleni/Zn 0.5 ml/ Total Parenteral Nutrition/Amino Acids/Dextrose/ Fat Emulsion Intravenous 1,512 ml @ 63 mls/hr TPN CONT IV Last administered on 07/06/19at 22:06; Start 07/06/19 at 22:00; Stop 07/07/19 at 21:59; Status DC Calcium Carbonate/ Glycine (Tums) 500 mg PRN AFTMEALHC PRN PO INDIGESTION; Start 07/06/19 at 17:45 Calcium Gluconate (Calcium Gluconate) 2,000 mg 1X ONCE IVP Last administered on 07/07/19at 02:19; Start 07/07/19 at 02:15; Stop 07/07/19 at 02:16; Status DC Calcium Chloride 3000 mg/Sodium Chloride 1,030 ml @ 50 mls/hr [id number] IV Last administered on 07/09/19at 02:17; Start 07/07/19 at 08:00; Stop 07/09/19 at 15:23; Status DC Lorazepam (Ativan Inj) 1 mg PRN Q4HRS PRN IVP ANXIETY / AGITATION, 2nd choic Last administered on 08/05/19at 03:51; Start 07/07/19 at 09:00; Stop 08/05/19 at 09:19; Status DC Sodium Chloride 1,000 ml @ 1,000 mls/hr Q1H PRN IV hypotension; Start 07/07/19 at 08:56; Stop 07/07/19 at 14:55; Status DC Albumin Human 200 ml @ 200 mls/hr 1X PRN PRN IV Hypotension; Start 07/07/19 at 09:00; Stop 07/07/19 at 14:59; Status DC Diphenhydramine HCl (Benadryl) 25 mg 1X PRN PRN IV ITCHING; Start 07/07/19 at 09:00; Stop 07/08/19 at 08:59; Status DC Diphenhydramine HCl (Benadryl) 25 mg 1X PRN PRN IV ITCHING; Start 07/07/19 at 09:00; Stop 07/08/19 at 08:59; Status DC Sodium Chloride 1,000 ml @ 400 mls/hr Q2H30M PRN IV PATENCY; Start 07/07/19 at 08:56; Stop 07/07/19 at 20:55; Status DC Info (PHARMACY MONITORING -- do not chart) 1 each PRN DAILY PRN MC SEE COMMENTS; Start 07/07/19 at 09:00; Status UNV Info (PHARMACY MONITORING -- do not chart) 1 each PRN DAILY PRN MC SEE COMMENTS; Start 07/07/19 at 09:00; Stop 07/08/19 at 08:13; Status DC Digoxin (Lanoxin) 500 mcg 1X ONCE IV Last administered on 07/07/19at 10:04; Start 07/07/19 at 10:00; Stop 07/07/19 at 10:01; Status DC Digoxin (Lanoxin) 125 mcg 1X ONCE IV Last administered on 07/07/19at 17:10; Start 07/07/19 at 18:00; Stop 07/07/19 at 18:01; Status DC Magnesium Sulfate 100 ml @ 25 mls/hr 1X ONCE IV Last administered on 07/07/19at 12:48; Start 07/07/19 at 13:00; Stop 07/07/19 at 16:59; Status DC Sodium Chloride 90 meq/Magnesium Sulfate 10 meq/ Calcium Gluconate 20 meq/ Multivitamins 10 ml/Chromium/ Copper/Manganese/ Seleni/Zn 0.5 ml/ Total Parenteral Nutrition/Amino Acids/Dextrose/ Fat Emulsion Intravenous 1,512 ml @ 63 mls/hr TPN CONT IV Last administered on 07/07/19at 22:25; Start 07/07/19 at 22:00; Stop 07/08/19 at 21:59; Status DC Sodium Chloride 1,000 ml @ 1,000 mls/hr Q1H PRN IV hypotension; Start 07/08/19 at 08:05; Stop 07/08/19 at 14:04; Status DC Albumin Human 200 ml @ 200 mls/hr 1X ONCE IV Last administered on 07/08/19at 08:57; Start 07/08/19 at 08:15; Stop 07/08/19 at 09:14; Status DC Diphenhydramine HCl (Benadryl) 25 mg 1X PRN PRN IV ITCHING; Start 07/08/19 at 08:15; Stop 07/09/19 at 08:14; Status DC Diphenhydramine HCl (Benadryl) 25 mg 1X PRN PRN IV ITCHING; Start 07/08/19 at 08:15; Stop 07/09/19 at 08:14; Status DC Sodium Chloride 1,000 ml @ 400 mls/hr Q2H30M PRN IV PATENCY; Start 07/08/19 at 08:05; Stop 07/08/19 at 20:04; Status DC Info (PHARMACY MONITORING -- do not chart) 1 each PRN DAILY PRN MC SEE COMMENTS; Start 07/08/19 at 08:15; Stop 07/12/19 at 07:57; Status DC Sodium Chloride 90 meq/Potassium Chloride 15 meq/ Potassium Phosphate 10 mmol/ Magnesium Sulfate 10 meq/Calcium Gluconate 20 meq/ Multivitamins 10 ml/Chromium/ Copper/Manganese/ Seleni/Zn 0.5 ml/ Total Parenteral Nutrition/Amino Acids/Dextrose/ Fat Emulsion Intravenous 1,512 ml @ 63 mls/hr TPN CONT IV Last administered on 07/08/19at 21:01; Start 07/08/19 at 22:00; Stop 07/09/19 at 21:59; Status DC Potassium Chloride/Water 100 ml @ 100 mls/hr 1X ONCE IV Last administered on 07/08/19at 14:09; Start 07/08/19 at 14:00; Stop 07/08/19 at 14:59; Status DC Benzocaine (Hurricaine One) 1 spray 1X ONCE MM Last administered on 07/08/19at 16:38; Start 07/08/19 at 14:30; Stop 07/08/19 at 14:31; Status DC Lidocaine HCl (Glydo (Lidocaine) Jelly) 1 ramu 1X ONCE MM Last administered on 07/08/19at 16:38; Start 07/08/19 at 14:30; Stop 07/08/19 at 14:31; Status DC Linezolid/Dextrose 300 ml @ 300 mls/hr Q12HR IV Last administered on 07/14/19at 21:04; Start 07/08/19 at 20:00; Stop 07/15/19 at 07:50; Status DC Acetaminophen (Tylenol) 650 mg PRN Q6HRS PRN PO MILD PAIN / TEMP; Start 07/09/19 at 03:30; Stop 07/09/19 at 03:36; Status DC Acetaminophen (Tylenol) 650 mg PRN Q6HRS PRN PEG MILD PAIN / TEMP Last administered on 08/04/19at 19:56; Start 07/09/19 at 03:36 Sodium Chloride 1,000 ml @ 1,000 mls/hr Q1H PRN IV hypotension; Start 07/09/19 at 07:50; Stop 07/09/19 at 13:49; Status DC Albumin Human 200 ml @ 200 mls/hr 1X PRN PRN IV Hypotension; Start 07/09/19 at 08:00; Stop 07/09/19 at 13:59; Status DC Sodium Chloride (Normal Saline Flush) 10 ml 1X PRN PRN IV AP catheter pack; Start 07/09/19 at 08:00; Stop 07/10/19 at 07:59; Status DC Sodium Chloride (Normal Saline Flush) 10 ml 1X PRN PRN IV [employer] catheter pack; Start 07/09/19 at 08:00; Stop 07/10/19 at 07:59; Status DC Sodium Chloride 1,000 ml @ 400 mls/hr Q2H30M PRN IV PATENCY; Start 07/09/19 at 07:50; Stop 07/09/19 at 19:49; Status DC Info (PHARMACY MONITORING -- do not chart) 1 each PRN DAILY PRN MC SEE COMMENTS; Start 07/09/19 at 08:00; Status UNV Info (PHARMACY MONITORING -- do not chart) 1 each PRN DAILY PRN MC SEE COMMENTS; Start 07/09/19 at 08:00; Stop 07/11/19 at 08:25; Status DC Sodium Chloride 90 meq/Potassium Chloride 15 meq/ Potassium Phosphate 10 mmol/ Magnesium Sulfate 10 meq/Calcium Gluconate 20 meq/ Multivitamins 10 ml/Chromium/ Copper/Manganese/ Seleni/Zn 0.5 ml/ Total Parenteral Nutrition/Amino Acids/Dextrose/ Fat Emulsion Intravenous 1,512 ml @ 63 mls/hr TPN CONT IV Last administered on 07/09/19at 20:57; Start 07/09/19 at 22:00; Stop 07/10/19 at 21:59; Status DC Sodium Chloride 90 meq/Potassium Chloride 15 meq/ Potassium Phosphate 15 mmol/ Magnesium Sulfate 10 meq/Calcium Gluconate 20 meq/ Multivitamins 10 ml/Chromium/ Copper/Manganese/ Seleni/Zn 0.5 ml/ Total Parenteral Nutrition/Amino Acids/Dextrose/ Fat Emulsion Intravenous 1,512 ml @ 63 mls/hr TPN CONT IV ; Start 07/10/19 at 22:00; Stop 07/10/19 at 14:16; Status DC Sodium Chloride 90 meq/Potassium Chloride 15 meq/ Potassium Phosphate 15 mmol/ Magnesium Sulfate 10 meq/Calcium Gluconate 20 meq/ Multivitamins 10 ml/Chromium/ Copper/Manganese/ Seleni/Zn 0.5 ml/ Total Parenteral Nutrition/Amino Acids/Dextrose/ Fat Emulsion Intravenous 1,200 ml @ 50 mls/hr TPN CONT IV ; Start 07/10/19 at 22:00; Stop 07/10/19 at 14:17; Status DC Sodium Chloride 90 meq/Potassium Chloride 15 meq/ Potassium Phosphate 10 mmol/ Magnesium Sulfate 10 meq/Calcium Gluconate 20 meq/ Multivitamins 10 ml/Chromium/ Copper/Manganese/ Seleni/Zn 0.5 ml/ Total Parenteral Nutrition/Amino Acids/Dextrose/ Fat Emulsion Intravenous 1,200 ml @ 50 mls/hr TPN CONT IV Last administered on 07/10/19at 23:29; Start 07/10/19 at 22:00; Stop 07/11/19 at 21:59; Status DC Sodium Chloride 1,000 ml @ 1,000 mls/hr Q1H PRN IV hypotension; Start 07/11/19 at 07:28; Stop 07/11/19 at 13:27; Status DC Albumin Human 200 ml @ 200 mls/hr 1X ONCE IV Last administered on 07/11/19at 08:51; Start 07/11/19 at 07:30; Stop 07/11/19 at 08:29; Status DC Diphenhydramine HCl (Benadryl) 25 mg 1X PRN PRN IV ITCHING; Start 07/11/19 at 07:30; Stop 07/12/19 at 07:29; Status DC Diphenhydramine HCl (Benadryl) 25 mg 1X PRN PRN IV ITCHING; Start 07/11/19 at 07:30; Stop 07/12/19 at 07:29; Status DC Sodium Chloride 1,000 ml @ 400 mls/hr Q2H30M PRN IV PATENCY; Start 07/11/19 at 07:28; Stop 07/11/19 at 19:27; Status DC Info (PHARMACY MONITORING -- do not chart) 1 each PRN DAILY PRN MC SEE COMMENTS; Start 07/11/19 at 07:30; Stop 07/22/19 at 13:01; Status DC Metronidazole 100 ml @ 100 mls/hr Q6HRS IV Last administered on 07/27/19at 06:26; Start 07/11/19 at 08:30; Stop 07/27/19 at 09:58; Status DC Micafungin Sodium 100 mg/Dextrose 100 ml @ 100 mls/hr Q24H IV Last administered on 08/18/19at 08:18; Start 07/11/19 at 09:00; Stop 08/18/19 at 20:58; Status DC Propofol 0 ml @ As Directed STK-MED ONCE IV ; Start 07/11/19 at 07:53; Stop 07/11/19 at 07:53; Status DC Etomidate (Amidate) 20 mg STK-MED ONCE IV ; Start 07/11/19 at 07:53; Stop 07/11/19 at 07:54; Status DC Midazolam HCl (Versed) 5 mg STK-MED ONCE .ROUTE ; Start 07/11/19 at 07:57; Stop 07/11/19 at 07:57; Status DC Fentanyl Citrate 30 ml @ 0 mls/hr CONT PRN IV SEE PROTOCOL Last administered on 08/05/19at 06:12; Start 07/11/19 at 08:15; Stop 08/05/19 at 09:19; Status DC Artificial Tears (Artificial Tears) 1 drop PRN Q1HR PRN OU DRY EYE, 1st choice; Start 07/11/19 at 08:15; Stop 08/17/19 at 05:31; Status DC Midazolam HCl 50 mg/Sodium Chloride 50 ml @ 0 mls/hr CONT PRN IV SEE PROTOCOL L ast administered on 07/14/19at 22:39; Start 07/11/19 at 08:15; Stop 07/16/19 at 15:59; Status DC Etomidate (Amidate) 8 mg 1X ONCE IV Last administered on 07/11/19at 08:33; Start 07/11/19 at 08:30; Stop 07/11/19 at 08:31; Status DC Succinylcholine Chloride (Anectine) 120 mg 1X ONCE IV Last administered on 07/11/19at 08:34; Start 07/11/19 at 08:30; Stop 07/11/19 at 08:31; Status DC Midazolam HCl (Versed) 5 mg 1X ONCE IV ; Start 07/11/19 at 08:30; Stop 07/11/19 at 08:31; Status DC Potassium Chloride 15 meq/ Bicarbonate Dialysis Soln w/ out KCl 5,007.5 ml @ 1,000 mls/ hr Q5H1M IV Last administered on 07/12/19at 11:11; Start 07/11/19 at 12:00; Stop 07/12/19 at 11:15; Status DC Potassium Chloride 15 meq/ Bicarbonate Dialysis Soln w/ out KCl 5,007.5 ml @ 1 ,000 mls/ hr Q5H1M IV Last administered on 07/12/19at 11:12; Start 07/11/19 at 12:00; Stop 07/12/19 at 11:17; Status DC Potassium Chloride 15 meq/ Bicarbonate Dialysis Soln w/ out KCl 5,007.5 ml @ 1,000 mls/ hr Q5H1M IV Last administered on 07/12/19at 11:11; Start 07/11/19 at 12:00; Stop 07/12/19 at 11:19; Status DC Sodium Chloride 90 meq/Potassium Chloride 15 meq/ Potassium Phosphate 10 mmol/ Magnesium Sulfate 10 meq/Calcium Gluconate 20 meq/ Multivitamins 10 ml/Chromium/ Copper/Manganese/ Seleni/Zn 0.5 ml/ Total Parenteral Nutrition/Amino Acids/Dextrose/ Fat Emulsion Intravenous 1,400 ml @ 58.333 mls/ hr TPN CONT IV Last administered on 07/11/19at 21:42; Start 07/11/19 at 22:00; Stop 07/12/19 at 21:59; Status DC Heparin Sodium (Porcine) (Heparin Sodium) 5,000 unit Q8HRS SQ Last administered on 07/16/19at 05:55; Start 07/11/19 at 15:00; Stop 07/16/19 at 13:28; Status DC Meropenem 500 mg/ Sodium Chloride 50 ml @ 100 mls/hr Q6HRS IV Last administered on 07/13/19at 06:00; Start 07/12/19 at 09:00; Stop 07/13/19 at 07:29; Status DC Potassium Phosphate 20 mmol/ Sodium Chloride 106.6667 ml @ 51.667 m... 1X ONCE IV Last administered on 07/12/19at 11:22; Start 07/12/19 at 10:15; Stop 07/12/19 at 12:18; Status DC Acetaminophen (Tylenol Supp) 650 mg PRN Q6HRS PRN GA MILD PAIN / TEMP > 100.3'F Last administered on 08/23/19at 09:12; Start 07/12/19 at 10:30 Potassium Chloride/Water 100 ml @ 100 mls/hr Q1H IV Last administered on 07/12/19at 12:12; Start 07/12/19 at 11:00; Stop 07/12/19 at 12:59; Status DC Potassium Chloride 20 meq/ Bicarbonate Dialysis Soln w/ out KCl 5,010 ml @ 1,000 mls/hr Q5H1M IV Last administered on 07/13/19at 08:48; Start 07/12/19 at 12:00; Stop 07/13/19 at 13:03; Status DC Potassium Chloride 20 meq/ Bicarbonate Dialysis Soln w/ out KCl 5,010 ml @ 1,000 mls/hr Q5H1M IV Last administered on 07/17/19at 14:52; Start 07/12/19 at 11:30; Stop 07/17/19 at 19:59; Status DC Potassium Chloride 20 meq/ Bicarbonate Dialysis Soln w/ out KCl 5,010 ml @ 1,000 mls/hr Q5H1M IV Last administered on 07/17/19at 14:53; Start 07/12/19 at 11:30; Stop 07/17/19 at 19:59; Status DC Sodium Chloride 90 meq/Potassium Chloride 15 meq/ Potassium Phosphate 15 mmol/ Magnesium Sulfate 10 meq/Calcium Gluconate 15 meq/ Multivitamins 10 ml/Chromium/ Copper/Manganese/ Seleni/Zn 0.5 ml/ Total Parenteral Nutrition/Amino Acids/Dextrose/ Fat Emulsion Intravenous 1,400 ml @ 58.333 mls/ hr TPN CONT IV Last administered on 07/12/19at 22:17; Start 07/12/19 at 22:00; Stop 07/13/19 at 21:59; Status DC Cefepime HCl (Maxipime) 2 gm Q12HR IVP Last administered on 07/26/19at 20:56; Start 07/13/19 at 09:00; Stop 07/27/19 at 09:58; Status DC Daptomycin 500 mg/ Sodium Chloride 50 ml @ 100 mls/hr Q48H IV Last administered on 07/29/19at 09:57; Start 07/13/19 at 08:30; Stop 07/29/19 at 10:07; Status DC Lidocaine HCl (Buffered Lidocaine 1%) 3 ml 1X ONCE INJ Last administered on 07/13/19at 10:27; Start 07/13/19 at 10:30; Stop 07/13/19 at 10:31; Status DC Potassium Phosphate 20 mmol/ Sodium Chloride 106.6667 ml @ 51.667 m... 1X ONCE IV Last administered on 07/13/19at 12:51; Start 07/13/19 at 13:00; Stop 07/13/19 at 15:03; Status DC Sodium Chloride 90 meq/Potassium Chloride 15 meq/ Potassium Phosphate 18 mmol/ Magnesium Sulfate 8 meq/Calcium Gluconate 15 meq/ Multivitamins 10 ml/Chromium/ Copper/Manganese/ Seleni/Zn 0.5 ml/ Total Parenteral Nutrition/Amino Acids/Dextrose/ Fat Emulsion Intravenous 1,400 ml @ 58.333 mls/ hr TPN CONT IV Last administered on 07/13/19at 22:16; Start 07/13/19 at 22:00; Stop 07/14/19 at 21:59; Status DC Potassium Chloride 20 meq/ Bicarbonate Dialysis Soln w/ out KCl 5,010 ml @ 1,000 mls/hr Q5H1M IV Last administered on 07/17/19at 14:54; Start 07/13/19 at 16:00; Stop 07/17/19 at 19:59; Status DC Multi-Ingred Cream/Lotion/Oil/ Oint (Artificial Tears Eye Ointment) 1 ramu PRN Q1HR PRN OU DRY EYE, 2nd choice Last administered on 08/01/19at 08:19; Start 07/13/19 at 17:30 Sodium Chloride 90 meq/Potassium Chloride 15 meq/ Potassium Phosphate 18 mmol/ Magnesium Sulfate 8 meq/Calcium Gluconate 15 meq/ Multivitamins 10 ml/Chromium/ Copper/Manganese/ Seleni/Zn 0.5 ml/ Total Parenteral Nutrition/Amino Acids/Dextrose/ Fat Emulsion Intravenous 1,400 ml @ 58.333 mls/ hr TPN CONT IV Last administered on 07/14/19at 22:00; Start 07/14/19 at 22:00; Stop 07/15/19 at 21:59; Status DC Albumin Human 500 ml @ 125 mls/hr 1X ONCE IV ; Start 07/14/19 at 14:15; Stop 07/14/19 at 18:14; Status DC Sodium Chloride 90 meq/Potassium Chloride 15 meq/ Potassium Phosphate 18 mmol/ Magnesium Sulfate 8 meq/Calcium Gluconate 15 meq/ Multivitamins 10 ml/Chromium/ Copper/Manganese/ Seleni/Zn 0.5 ml/ Insulin Human Regular 10 unit/ Total Parenteral Nutrition/Amino Acids/Dextrose/ Fat Emulsion Intravenous 1,400 ml @ 58.333 mls/ hr TPN CONT IV Last administered on 07/15/19at 21:43; Start 07/15/19 at 22:00; Stop 07/16/19 at 21:59; Status DC Lidocaine HCl (Buffered Lidocaine 1%) 3 ml STK-MED ONCE .ROUTE ; Start 07/13/19 at 10:00; Stop 07/15/19 at 13:57; Status DC Midazolam HCl 100 mg/Sodium Chloride 100 ml @ 7 mls/hr CONT PRN IV SEE PROTOCOL Last administered on 07/27/19at 15:35; Start 07/16/19 at 16:00 Sodium Chloride 90 meq/Potassium Chloride 15 meq/ Potassium Phosphate 18 mmol/ Magnesium Sulfate 8 meq/Calcium Gluconate 15 meq/ Multivitamins 10 ml/Chromium/ Copper/Manganese/ Seleni/Zn 0.5 ml/ Insulin Human Regular 15 unit/ Total Parenteral Nutrition/Amino Acids/Dextrose/ Fat Emulsion Intravenous 1,400 ml @ 58.333 mls/ hr TPN CONT IV Last administered on 07/16/19at 20:34; Start 07/16/19 at 22:00; Stop 07/17/19 at 21:59; Status DC Info (Icu Electrolyte Protocol) 1 ea CONT PRN PRN MC PER PROTOCOL; Start 07/17/19 at 13:15 Sodium Chloride 90 meq/Potassium Chloride 15 meq/ Potassium Phosphate 18 mmol/ Magnesium Sulfate 8 meq/Calcium Gluconate 15 meq/ Multivitamins 10 ml/Chromium/ Copper/Manganese/ Seleni/Zn 0.5 ml/ Insulin Human Regular 15 unit/ Total Parenteral Nutrition/Amino Acids/Dextrose/ Fat Emulsion Intravenous 1,400 ml @ 58.333 mls/ hr TPN CONT IV Last administered on 07/17/19at 22:05; Start 07/17/19 at 22:00; Stop 07/18/19 at 21:59; Status DC Potassium Chloride 15 meq/ Bicarbonate Dialysis Soln w/ out KCl 5,007.5 ml @ 1,000 mls/ hr Q5H1M IV Last administered on 07/20/19at 18:14; Start 07/17/19 at 20:00; Stop 07/21/19 at 13:08; Status DC Potassium Chloride 15 meq/ Bicarbonate Dialysis Soln w/ out KCl 5,007.5 ml @ 1,000 mls/ hr Q5H1M IV Last administered on 07/20/19at 18:14; Start 07/17/19 at 20:00; Stop 07/21/19 at 13:08; Status DC Potassium Chloride 15 meq/ Bicarbonate Dialysis Soln w/ out KCl 5,007.5 ml @ 1,000 mls/ hr Q5H1M IV Last administered on 07/20/19at 18:14; Start 07/17/19 at 20:00; Stop 07/21/19 at 13:08; Status DC Iohexol (Omnipaque 240 Mg/ml) 30 ml 1X ONCE PO Last administered on 07/18/19at 11:30; Start 07/18/19 at 11:30; Stop 07/18/19 at 11:33; Status DC Info (CONTRAST GIVEN -- Rx MONITORING) 1 each PRN DAILY PRN MC SEE COMMENTS; Start 07/18/19 at 11:45; Stop 07/20/19 at 11:44; Status DC Sodium Chloride 90 meq/Potassium Chloride 15 meq/ Potassium Phosphate 18 mmol/ Magnesium Sulfate 8 meq/Calcium Gluconate 15 meq/ Multivitamins 10 ml/Chromium/ Copper/Manganese/ Seleni/Zn 0.5 ml/ Insulin Human Regular 15 unit/ Total Parenteral Nutrition/Amino Acids/Dextrose/ Fat Emulsion Intravenous 1,400 ml @ 58.333 mls/ hr TPN CONT IV Last administered on 07/18/19at 21:47; Start 07/18/19 at 22:00; Stop 07/19/19 at 21:59; Status DC Sodium Chloride 90 meq/Potassium Chloride 15 meq/ Potassium Phosphate 18 mmol/ Magnesium Sulfate 8 meq/Calcium Gluconate 15 meq/ Multivitamins 10 ml/Chromium/ Copper/Manganese/ Seleni/Zn 0.5 ml/ Insulin Human Regular 20 unit/ Total Parenteral Nutrition/Amino Acids/Dextrose/ Fat Emulsion Intravenous 1,400 ml @ 58.333 mls/ hr TPN CONT IV Last administered on 07/19/19at 21:36; Start 07/19/19 at 22:00; Stop 07/20/19 at 21:59; Status DC Alteplase, Recombinant (Cathflo For Central Catheter Clearance) 1 mg 1X ONCE INT CAT Last administered on 07/19/19at 20:03; Start 07/19/19 at 19:30; Stop 07/19/19 at 19:46; Status DC Alteplase, Recombinant (Cathflo For Central Catheter Clearance) 1 mg 1X ONCE INT CAT Last administered on 07/19/19at 22:05; Start 07/19/19 at 22:00; Stop 07/19/19 at 22:01; Status DC Sodium Chloride 90 meq/Potassium Chloride 15 meq/ Potassium Phosphate 18 mmol/ Magnesium Sulfate 8 meq/Calcium Gluconate 15 meq/ Multivitamins 10 ml/Chromium/ Copper/Manganese/ Seleni/Zn 0.5 ml/ Insulin Human Regular 20 unit/ Total Parenteral Nutrition/Amino Acids/Dextrose/ Fat Emulsion Intravenous 1,400 ml @ 58.333 mls/ hr TPN CONT IV Last administered on 07/20/19at 21:30; Start 07/20/19 at 22:00; Stop 07/21/19 at 21:59; Status DC Dexmedetomidine HCl 400 mcg/ Sodium Chloride 100 ml @ 0 mls/hr CONT PRN IV ANXIETY / AGITATION Last administered on 08/23/19at 11:11; Start 07/21/19 at 08:15 Sodium Chloride 500 ml @ 500 mls/hr 1X PRN PRN IV ELEVATED BP, SEE COMMENTS; Start 07/21/19 at 08:15 Atropine Sulfate (ATROPINE 0.5mg SYRINGE) 0.5 mg PRN Q5MIN PRN IV SEE COMMENTS; Start 07/21/19 at 08:15 Furosemide (Lasix) 20 mg 1X ONCE IVP Last administered on 07/21/19at 08:19; Start 07/21/19 at 08:15; Stop 07/21/19 at 08:16; Status DC Lidocaine HCl (Buffered Lidocaine 1%) 3 ml STK-MED ONCE .ROUTE ; Start 07/21/19 at 08:39; Stop 07/21/19 at 08:39; Status DC Lidocaine HCl (Buffered Lidocaine 1%) 6 ml 1X ONCE INJ Last administered on 07/21/19at 09:05; Start 07/21/19 at 09:00; Stop 07/21/19 at 09:06; Status DC Sodium Chloride 90 meq/Potassium Chloride 15 meq/ Potassium Phosphate 18 mmol/ Magnesium Sulfate 8 meq/Calcium Gluconate 15 meq/ Multivitamins 10 ml/Chromium/ Copper/Manganese/ Seleni/Zn 0.5 ml/ Insulin Human Regular 20 unit/ Total Parenteral Nutrition/Amino Acids/Dextrose/ Fat Emulsion Intravenous 1,400 ml @ 58.333 mls/ hr TPN CONT IV Last administered on 07/21/19at 22:45; Start 07/21/19 at 22:00; Stop 07/22/19 at 21:59; Status DC Sodium Chloride 1,000 ml @ 1,000 mls/hr Q1H PRN IV hypotension; Start 07/22/19 at 07:30; Stop 07/22/19 at 13:29; Status DC Albumin Human 200 ml @ 200 mls/hr 1X PRN PRN IV Hypotension Last administered on 07/22/19at 09:36; Start 07/22/19 at 07:30; Stop 07/22/19 at 13:29; Status DC Sodium Chloride (Normal Saline Flush) 10 ml 1X PRN PRN IV AP catheter pack; Start 07/22/19 at 07:30; Stop 07/22/19 at 21:29; Status DC Sodium Chloride (Normal Saline Flush) 10 ml 1X PRN PRN IV [employer] catheter pack; Start 07/22/19 at 07:30; Stop 07/23/19 at 07:29; Status DC Sodium Chloride 1,000 ml @ 400 mls/hr Q2H30M PRN IV PATENCY; Start 07/22/19 at 07:30; Stop 07/22/19 at 19:29; Status DC Info (PHARMACY MONITORING -- do not chart) 1 each PRN DAILY PRN MC SEE COMMENTS; Start 07/22/19 at 07:30; Stop 07/22/19 at 13:02; Status DC Info (PHARMACY MONITORING -- do not chart) 1 each PRN DAILY PRN MC SEE COMMENTS; Start 07/22/19 at 07:30; Stop 07/24/19 at 12:45; Status DC Sodium Chloride 90 meq/Potassium Chloride 15 meq/ Potassium Phosphate 10 mmol/ Magnesium Sulfate 8 meq/Calcium Gluconate 15 meq/ Multivitamins 10 ml/Chromium/ Copper/Manganese/ Seleni/Zn 0.5 ml/ Insulin Human Regular 25 unit/ Total Parenteral Nutrition/Amino Acids/Dextrose/ Fat Emulsion Intravenous 1,400 ml @ 58.333 mls/ hr TPN CONT IV Last administered on 07/22/19at 22:19; Start 07/22/19 at 22:00; Stop 07/23/19 at 21:59; Status DC Heparin Sodium (Porcine) (Heparin Sodium) 5,000 unit Q12HR SQ Last administered on 08/14/19at 08:59; Start 07/22/19 at 21:00; Stop 08/14/19 at 10:05; Status DC Ondansetron HCl (Zofran) 4 mg PRN Q6HRS PRN IV NAUSEA/VOMITING; Start 07/25/19 at 07:00; Stop 07/26/19 at 06:59; Status DC Fentanyl Citrate (Fentanyl 2ml Vial) 25 mcg PRN Q5MIN PRN IV MILD PAIN 1-3; Start 07/25/19 at 07:00; Stop 07/26/19 at 06:59; Status DC Fentanyl Citrate (Fentanyl 2ml Vial) 50 mcg PRN Q5MIN PRN IV MODERATE TO SEVERE PAIN; Start 07/25/19 at 07:00; Stop 07/26/19 at 06:59; Status DC Ringer's Solution 1,000 ml @ 30 mls/hr Q24H IV ; Start 07/25/19 at 07:00; Stop 07/25/19 at 18:59; Status DC Lidocaine HCl (Xylocaine-Mpf 1% 2ml Vial) 2 ml PRN 1X PRN ID PRIOR TO IV START; Start 07/25/19 at 07:00; Stop 07/26/19 at 06:59; Status DC Prochlorperazine Edisylate (Compazine) 5 mg PACU PRN PRN IV NAUSEA, MRX1; Start 07/25/19 at 07:00; Stop 07/26/19 at 06:59; Status DC Sodium Chloride 1,000 ml @ 1,000 mls/hr Q1H PRN IV hypotension; Start 07/23/19 at 09:10; Stop 07/23/19 at 15:09; Status DC Albumin Human 200 ml @ 200 mls/hr 1X PRN PRN IV Hypotension Last administered on 07/23/19at 10:10; Start 07/23/19 at 09:15; Stop 07/23/19 at 15:14; Status DC Sodium Chloride 1,000 ml @ 400 mls/hr Q2H30M PRN IV PATENCY; Start 07/23/19 at 09:10; Stop 07/23/19 at 21:09; Status DC Info (PHARMACY MONITORING -- do not chart) 1 each PRN DAILY PRN MC SEE COMMENTS; Start 07/23/19 at 09:15; Stop 07/24/19 at 12:45; Status DC Info (PHARMACY MONITORING -- do not chart) 1 each PRN DAILY PRN MC SEE COMMENTS; Start 07/23/19 at 09:15; Stop 07/24/19 at 12:45; Status DC Sodium Chloride 90 meq/Potassium Chloride 15 meq/ Potassium Phosphate 10 mmol/ Magnesium Sulfate 8 meq/Calcium Gluconate 15 meq/ Multivitamins 10 ml/Chromium/ Copper/Manganese/ Seleni/Zn 0.5 ml/ Insulin Human Regular 25 unit/ Total Parenteral Nutrition/Amino Acids/Dextrose/ Fat Emulsion Intravenous 1,400 ml @ 58.333 mls/ hr TPN CONT IV Last administered on 07/23/19at 22:10; Start 07/23/19 at 22:00; Stop 07/24/19 at 21:59; Status DC Magnesium Sulfate 50 ml @ 25 mls/hr PRN DAILY PRN IV for Mag < 1.7 on am labs Last administered on 08/08/19at 17:27; Start 07/24/19 at 09:15 Sodium Chloride 90 meq/Potassium Chloride 15 meq/ Potassium Phosphate 10 mmol/ Magnesium Sulfate 8 meq/Calcium Gluconate 15 meq/ Multivitamins 10 ml/Chromium/ Copper/Manganese/ Seleni/Zn 0.5 ml/ Insulin Human Regular 25 unit/ Total Parenteral Nutrition/Amino Acids/Dextrose/ Fat Emulsion Intravenous 1,400 ml @ 58.333 mls/ hr TPN CONT IV Last administered on 07/24/19at 21:20; Start 07/24/19 at 22:00; Stop 07/25/19 at 21:59; Status DC Sodium Chloride 1,000 ml @ 1,000 mls/hr Q1H PRN IV hypotension; Start 07/24/19 at 12:23; Stop 07/24/19 at 18:22; Status DC Albumin Human 200 ml @ 200 mls/hr 1X ONCE IV Last administered on 07/24/19at 13:34; Start 07/24/19 at 12:30; Stop 07/24/19 at 13:29; Status DC Diphenhydramine HCl (Benadryl) 25 mg 1X PRN PRN IV ITCHING; Start 07/24/19 at 12:30; Stop 07/25/19 at 12:29; Status DC Diphenhydramine HCl (Benadryl) 25 mg 1X PRN PRN IV ITCHING; Start 07/24/19 at 12:30; Stop 07/25/19 at 12:29; Status DC Info (PHARMACY MONITORING -- do not chart) 1 each PRN DAILY PRN MC SEE COMMENTS; Start 07/24/19 at 12:30; Status Cancel Bupivacaine HCl/ Epinephrine Bitart (Sensorcain-Epi 0.5%-1:[id number] Mpf) 30 ml STK-MED ONCE .ROUTE Last administered on 07/25/19at 11:44; Start 07/25/19 at 11:00; Stop 07/25/19 at 11:01; Status DC Cellulose (Surgicel Fibrillar 1x2) 1 each STK-MED ONCE .ROUTE ; Start 07/25/19 at 11:00; Stop 07/25/19 at 11:01; Status DC Sodium Chloride 90 meq/Potassium Chloride 15 meq/ Potassium Phosphate 10 mmol/ Magnesium Sulfate 12 meq/Calcium Gluconate 15 meq/ Multivitamins 10 ml/Chromium/ Copper/Manganese/ Seleni/Zn 0.5 ml/ Insulin Human Regular 25 unit/ Total Paren teral Nutrition/Amino Acids/Dextrose/ Fat Emulsion Intravenous 1,400 ml @ 58.333 mls/ hr TPN CONT IV Last administered on 07/25/19at 22:24; Start 07/25/19 at 22:00; Stop 07/26/19 at 21:59; Status DC Propofol 20 ml @ As Directed STK-MED ONCE IV ; Start 07/25/19 at 11:07; Stop 07/25/19 at 11:07; Status DC Cellulose (Surgicel Hemostat 4x8) 1 each STK-MED ONCE .ROUTE Last administered on 07/25/19at 11:44; Start 07/25/19 at 11:55; Stop 07/25/19 at 11:56; Status DC Sevoflurane (Ultane) 60 ml STK-MED ONCE IH ; Start 07/25/19 at 12:46; Stop 07/25/19 at 12:46; Status DC Sodium Chloride 1,000 ml @ 1,000 mls/hr Q1H PRN IV hypotension; Start 07/25/19 at 13:51; Stop 07/25/19 at 19:50; Status DC Albumin Human 200 ml @ 200 mls/hr 1X PRN PRN IV Hypotension Last administered on 07/25/19at 14:51; Start 07/25/19 at 14:00; Stop 07/25/19 at 19:59; Status DC Diphenhydramine HCl (Benadryl) 25 mg 1X PRN PRN IV ITCHING; Start 07/25/19 at 14:00; Stop 07/26/19 at 13:59; Status DC Diphenhydramine HCl (Benadryl) 25 mg 1X PRN PRN IV ITCHING; Start 07/25/19 at 14:00; Stop 07/26/19 at 13:59; Status DC Sodium Chloride 1,000 ml @ 400 mls/hr Q2H30M PRN IV PATENCY; Start 07/25/19 at 13:51; Stop 07/26/19 at 01:50; Status DC Info (PHARMACY MONITORING -- do not chart) 1 each PRN DAILY PRN MC SEE PIPE TS; Start 07/25/19 at 14:00; Stop 07/28/19 at 08:16; Status DC Heparin Sodium (Porcine) (Hep Lock Adult) 500 unit STK-MED ONCE IVP ; Start 07/26/19 at 09:29; Stop 07/26/19 at 09:30; Status DC Sodium Chloride 1,000 ml @ 1,000 mls/hr Q1H PRN IV hypotension; Start 07/26/19 at 10:43; Stop 07/26/19 at 16:42; Status DC Sodium Chloride 1,000 ml @ 400 mls/hr Q2H30M PRN IV PATENCY; Start 07/26/19 at 10:43; Stop 07/26/19 at 22:42; Status DC Info (PHARMACY MONITORING -- do not chart) 1 each PRN DAILY PRN MC SEE COMMENT S; Start 07/26/19 at 10:45; Status UNV Info (PHARMACY MONITORING -- do not chart) 1 each PRN DAILY PRN MC SEE COMMENTS; Start 07/26/19 at 10:45; Status UNV Sodium Chloride 90 meq/Potassium Chloride 15 meq/ Magnesium Sulfate 12 meq/Calcium Gluconate 15 meq/ Multivitamins 10 ml/Chromium/ Copper/Manganese/ Seleni/Zn 0.5 ml/ Insulin Human Regular 25 unit/ Total Parenteral Nutrition/Am tristen Acids/Dextrose/ Fat Emulsion Intravenous 1,400 ml @ 58.333 mls/ hr TPN CONT IV Last administered on 07/26/19at 22:13; Start 07/26/19 at 22:00; Stop 07/27/19 at 21:59; Status DC Sodium Chloride 1,000 ml @ 1,000 mls/hr Q1H PRN IV hypotension; Start 07/27/19 at 07:50; Stop 07/27/19 at 13:49; Status DC Albumin Human 200 ml @ 200 mls/hr 1X ONCE IV ; Start 07/27/19 at 08:00; Stop at 08:53; Status DC Diphenhydramine HCl (Benadryl) 25 mg 1X PRN PRN IV ITCHING; Start 07/27/19 at 08:00; Stop 07/28/19 at 07:59; Status DC Diphenhydramine HCl (Benadryl) 25 mg 1X PRN PRN IV ITCHING; Start 07/27/19 at 08:00; Stop 07/28/19 at 07:59; Status DC Info (PHARMACY MONITORING -- do not chart) 1 each PRN DAILY PRN MC SEE COMMENTS; Start 07/27/19 at 08:00; Stop 07/28/19 at 08:16; Status DC Albumin Human 50 ml @ 50 mls/hr 1X ONCE IV ; Start 07/27/19 at 08:53; Stop 07/27/19 at 08:56; Status DC Albumin Human 200 ml @ 50 mls/hr PRN 1X PRN IV HYPOTENSION Last administered on 08/02/19at 11:54; Start 07/27/19 at 09:00 [facility] 500 mg/ Sodium Chloride 50 ml @ 100 mls/hr Q12H IV Last administered on 08/16/19at 10:45; Start 07/27/19 at 10:00; Stop 08/16/19 at 12:37; Status DC Sodium Chloride 90 meq/Magnesium Sulfate 12 meq/ Calcium Gluconate 15 meq/ Multivitamins 10 ml/Chromium/ Copper/Manganese/ Seleni/Zn 0.5 ml/ Insulin Human Regular 25 unit/ Total Parenteral Nutrition/Amino Acids/Dextrose/ Fat Emulsion Intravenous 1,400 ml @ 58.333 mls/ hr TPN CONT IV Last administered on 07/27/19at 21:41; Start 07/27/19 at 22:00; Stop 07/28/19 at 21:59; Status DC Sodium Chloride 1,000 ml @ 1,000 mls/hr Q1H PRN IV hypotension; Start 07/28/19 at 07:58; Stop 07/28/19 at 13:57; Status DC Albumin Human 200 ml @ 200 mls/hr 1X PRN PRN IV Hypotension Last administered on 07/28/19at 09:30; Start 07/28/19 at 08:00; Stop 07/28/19 at 13:59; Status DC Sodium Chloride 1,000 ml @ 400 mls/hr Q2H30M PRN IV PATENCY; Start 07/28/19 at 07:58; Stop 07/28/19 at 19:57; Status DC Info (PHARMACY MONITORING -- do not chart) 1 each PRN DAILY PRN MC SEE COMMENTS; Start 07/28/19 at 08:00; Status Cancel Info (PHARMACY MONITORING -- do not chart) 1 each PRN DAILY PRN MC SEE COMMENTS; Start 07/28/19 at 08:15; Status UNV Sodium Chloride 90 meq/Potassium Phosphate 5 mmol/ Magnesium Sulfate 12 meq/Calcium Gluconate 15 meq/ Multivitamins 10 ml/Chromium/ Copper/Manganese/ Seleni/Zn 0.5 ml/ Insulin Human Regular 30 unit/ Total Parenteral Nutrition/Amino Acids/Dextrose/ Fat Emulsion Intravenous 1,400 ml @ 58.333 mls/ hr TPN CONT IV Last administered on 07/28/19at 22:08; Start 07/28/19 at 22:00; Stop 07/29/19 at 21:59; Status DC Linezolid/Dextrose 300 ml @ 300 mls/hr Q12HR IV Last administered on 08/08/19at 20:40; Start 07/29/19 at 11:00; Stop 08/09/19 at 08:10; Status DC Sodium Chloride 90 meq/Potassium Phosphate 15 mmol/ Magnesium Sulfate 12 meq/Calcium Gluconate 15 meq/ Multivitamins 10 ml/Chromium/ Copper/Manganese/ Seleni/Zn 0.5 ml/ Insulin Human Regular 30 unit/ Total Parenteral Nutrition/Amino Acids/Dextrose/ Fat Emulsion Intravenous 1,400 ml @ 58.333 mls/ hr TPN CONT IV Last administered on 07/29/19at 21:49; Start 07/29/19 at 22:00; Stop 07/30/19 at 21:59; Status DC Sodium Chloride 90 meq/Potassium Phosphate 15 mmol/ Magnesium Sulfate 12 meq/Calcium Gluconate 15 meq/ Multivitamins 10 ml/Chromium/ Copper/Manganese/ Seleni/Zn 0.5 ml/ Insulin Human Regular 40 unit/ Total Parenteral Nutrition/Amino Acids/Dextrose/ Fat Emulsion Intravenous 1,400 ml @ 58.333 mls/ hr TPN CONT IV Last administered on 07/30/19at 21:21; Start 07/30/19 at 22:00; Stop 07/31/19 at 21:59; Status DC Sodium Chloride 1,000 ml @ 1,000 mls/hr Q1H PRN IV hypotension; Start 07/30/19 at 13:26; Stop 07/30/19 at 19:25; Status DC Albumin Human 200 ml @ 200 mls/hr 1X PRN PRN IV Hypotension Last administered on 07/30/19at 15:00; Start 07/30/19 at 13:30; Stop 07/30/19 at 19:29; Status DC Sodium Chloride (Normal Saline Flush) 10 ml 1X PRN PRN IV AP catheter pack; Start 07/30/19 at 13:30; Stop 07/31/19 at 13:29; Status DC Sodium Chloride (Normal Saline Flush) 10 ml 1X PRN PRN IV [employer] catheter pack; Start 07/30/19 at 13:30; Stop 07/31/19 at 13:29; Status DC Sodium Chloride 1,000 ml @ 400 mls/hr Q2H30M PRN IV PATENCY; Start 07/30/19 at 13:26; Stop 07/31/19 at 01:25; Status DC Info (PHARMACY MONITORING -- do not chart) 1 each PRN DAILY PRN MC SEE COMMENTS; Start 07/30/19 at 13:30; Stop 07/30/19 at 13:33; Status DC Info (PHARMACY MONITORING -- do not chart) 1 each PRN DAILY PRN MC SEE LUIS ALBERTO NTS; Start 07/30/19 at 13:30; Stop 07/30/19 at 13:34; Status DC Sodium Chloride 90 meq/Potassium Phosphate 19 mmol/ Magnesium Sulfate 12 meq/Calcium Gluconate 15 meq/ Multivitamins 10 ml/Chromium/ Copper/Manganese/ Seleni/Zn 0.5 ml/ Insulin Human Regular 40 unit/ Total Parenteral Nutrition/Amino Acids/Dextrose/ Fat Emulsion Intravenous 1,400 ml @ 58.333 mls/ hr TPN CONT IV Last administered on 07/31/19at 21:54; Start 07/31/19 at 22:00; Stop 08/01/19 at 21:59; Status DC Sodium Chloride 1,000 ml @ 1,000 mls/hr Q1H PRN IV hypotension; Start 08/01/19 at 09:35; Stop 08/01/19 at 15:34; Status DC Albumin Human 200 ml @ 200 mls/hr 1X PRN PRN IV Hypotension; Start 08/01/19 at 09:45; Stop 08/01/19 at 15:44; Status DC Diphenhydramine HCl (Benadryl) 25 mg 1X PRN PRN IV ITCHING; Start 08/01/19 at 09:45; Stop 08/02/19 at 09:44; Status DC Diphenhydramine HCl (Benadryl) 25 mg 1X PRN PRN IV ITCHING; Start 08/01/19 at 09:45; Stop 08/02/19 at 09:44; Status DC Sodium Chloride 1,000 ml @ 400 mls/hr Q2H30M PRN IV PATENCY; Start 08/01/19 at 09:35; Stop 08/01/19 at 21:34; Status DC Info (PHARMACY MONITORING -- do not chart) 1 each PRN DAILY PRN MC SEE COMMENTS; Start 08/01/19 at 09:45; Status Cancel Sodium Chloride 100 meq/Potassium Phosphate 19 mmol/ Magnesium Sulfate 12 meq/Calcium Gluconate 15 meq/ Multivitamins 10 ml/Chromium/ Copper/Manganese/ Seleni/Zn 0.5 ml/ Insulin Human Regular 40 unit/ Potassium Chloride 20 meq/ Total Parenteral Nutrition/Amino Acids/Dextrose/ Fat Emulsion Intravenous 1,400 ml @ 58.333 mls/ hr TPN CONT IV Last administered on 08/01/19at 22:02; Start 08/01/19 at 22:00; Stop 08/02/19 at 21:59; Status DC Furosemide (Lasix) 40 mg 1X ONCE IVP Last administered on 08/01/19at 14:39; Start 08/01/19 at 14:30; Stop 08/01/19 at 14:31; Status DC Metronidazole 100 ml @ 100 mls/hr Q8HRS IV Last administered on 08/09/19at 06:04; Start 08/02/19 at 10:00; Stop 08/09/19 at 08:10; Status DC Sodium Chloride 1,000 ml @ 1,000 mls/hr Q1H PRN IV hypotension; Start 08/02/19 at 08:00; Stop 08/02/19 at 13:59; Status DC Albumin Human 200 ml @ 200 mls/hr 1X PRN PRN IV Hypotension; Start 08/02/19 at 08:00; Stop 08/02/19 at 13:59; Status DC Sodium Chloride 1,000 ml @ 400 mls/hr Q2H30M PRN IV PATENCY; Start 08/02/19 at 08:00; Stop 08/02/19 at 19:59; Status DC Info (PHARMACY MONITORING -- do not chart) 1 each PRN DAILY PRN MC SEE COMMENTS; Start 08/02/19 at 11:30; Status UNV Info (PHARMACY MONITORING -- do not chart) 1 each PRN DAILY PRN MC SEE COMMENTS; Start 08/02/19 at 11:30; Stop 08/04/19 at 12:13; Status DC Sodium Chloride 100 meq/Potassium Phosphate 19 mmol/ Magnesium Sulfate 12 meq/Calcium Gluconate 15 meq/ Multivitamins 10 ml/Chromium/ Copper/Manganese/ Seleni/Zn 0.5 ml/ Insulin Human Regular 40 unit/ Potassium Chloride 20 meq/ Total Parenteral Nutrition/Amino Acids/Dextrose/ Fat Emulsion Intravenous 1,400 ml @ 58.333 mls/ hr TPN CONT IV Last administered on 08/02/19at 21:52; Start 08/02/19 at 22:00; Stop 08/03/19 at 21:59; Status DC Sodium Chloride (Normal Saline Flush) 10 ml QSHIFT PRN IV AFTER MEDS AND BLOOD DRAWS; Start 08/02/19 at 15:00 Sodium Chloride (Normal Saline Flush) 10 ml PRN Q5MIN PRN IV AFTER MEDS AND BLOOD DRAWS; Start 08/02/19 at 15:00 Sodium Chloride (Normal Saline Flush) 20 ml PRN Q5MIN PRN IV AFTER MEDS AND BLOOD DRAWS; Start 08/02/19 at 15:00 Sodium Chloride 100 meq/Potassium Phosphate 19 mmol/ Magnesium Sulfate 12 meq/Calcium Gluconate 15 meq/ Multivitamins 10 ml/Chromium/ Copper/Manganese/ Seleni/Zn 0.5 ml/ Insulin Human Regular 40 unit/ Potassium Chloride 20 meq/ Total Parenteral Nutrition/Amino Acids/Dextrose/ Fat Emulsion Intravenous 1,400 ml @ 58.333 mls/ hr TPN CONT IV Last administered on 08/03/19at 21:20; Start 08/03/19 at 22:00; Stop 08/04/19 at 21:59; Status DC Lidocaine HCl (Buffered Lidocaine 1%) 3 ml STK-MED ONCE .ROUTE ; Start 08/03/19 at 13:16; Stop 08/03/19 at 13:16; Status DC Lidocaine HCl (Buffered Lidocaine 1%) 6 ml 1X ONCE INJ Last administered on 08/03/19at 13:45; Start 08/03/19 at 13:30; Stop 08/03/19 at 13:31; Status DC Albumin Human 100 ml @ 100 mls/hr 1X ONCE IV Last administered on 08/03/19at 15:41; Start 08/03/19 at 15:00; Stop 08/03/19 at 15:59; Status DC Albumin Human 50 ml @ 50 mls/hr 1X ONCE IV Last administered on 08/03/19at 15:00; Start 08/03/19 at 15:00; Stop 08/03/19 at 15:59; Status DC Info (PHARMACY MONITORING -- do not chart) 1 each PRN DAILY PRN MC SEE COMMENTS; Start 08/04/19 at 11:30; Status Cancel Info (PHARMACY MONITORING -- do not chart) 1 each PRN DAILY PRN MC SEE COMMENTS; Start 08/04/19 at 11:30; Status UNV Sodium Chloride 100 meq/Potassium Phosphate 10 mmol/ Magnesium Sulfate 12 meq/Calcium Gluconate 15 meq/ Multivitamins 10 ml/Chromium/ Copper/Manganese/ Seleni/Zn 0.5 ml/ Insulin Human Regular 35 unit/ Potassium Chloride 20 meq/ Total Parenteral Nutrition/Amino Acids/Dextrose/ Fat Emulsion Intravenous 1,400 ml @ 58.333 mls/ hr TPN CONT IV Last administered on 08/04/19at 22:10; Start 08/04/19 at 22:00; Stop 08/05/19 at 21:59; Status DC Sodium Chloride 100 meq/Potassium Phosphate 5 mmol/ Magnesium Sulfate 12 meq/Calcium Gluconate 15 meq/ Multivitamins 10 ml/Chromium/ Copper/Manganese/ Seleni/Zn 0.5 ml/ Insulin Human Regular 35 unit/ Potassium Chloride 20 meq/ Total Parenteral Nutrition/Amino Acids/Dextrose/ Fat Emulsion Intravenous 1,400 ml @ 58.333 mls/ hr TPN CONT IV Last administered on 08/05/19at 22:59; Start 08/05/19 at 22:00; Stop 08/06/19 at 21:59; Status DC Sodium Chloride 1,000 ml @ 1,000 mls/hr Q1H PRN IV hypotension; Start 08/06/19 at 08:27; Stop 08/06/19 at 14:26; Status DC Albumin Human 200 ml @ 200 mls/hr 1X PRN PRN IV Hypotension Last administered on 08/06/19at 09:18; Start 08/06/19 at 08:30; Stop 08/06/19 at 14:29; Status DC Sodium Chloride 1,000 ml @ 400 mls/hr Q2H30M PRN IV PATENCY; Start 08/06/19 at 08:27; Stop 08/06/19 at 20:26; Status DC Info (PHARMACY MONITORING -- do not chart) 1 each PRN DAILY PRN MC SEE COMMENTS; Start 08/06/19 at 08:30; Status Cancel Info (PHARMACY MONITORING -- do not chart) 1 each PRN DAILY PRN MC SEE COMMENTS; Start 08/06/19 at 08:30; Stop 08/14/19 at 13:10; Status DC Sodium Chloride 100 meq/Potassium Chloride 40 meq/ Magnesium Sulfate 15 meq/Calcium Gluconate 15 meq/ Multivitamins 10 ml/Chromium/ Copper/Manganese/ Seleni/Zn 0.5 ml/ Insulin Human Regular 35 unit/ Total Parenteral Nutrition/Amino Acids/Dextrose/ Fat Emulsion Intravenous 1,400 ml @ 58.333 mls/ hr TPN CONT IV Last administered on 08/06/19at 22:00; Start 08/06/19 at 22:00; Stop 08/07/19 at 21:59; Status DC Potassium Chloride/Water 100 ml @ 100 mls/hr 1X ONCE IV Last administered on 08/06/19at 17:28; Start 08/06/19 at 14:45; Stop 08/06/19 at 15:44; Status DC Sodium Chloride 100 meq/Potassium Chloride 40 meq/ Magnesium Sulfate 15 meq/Calcium Gluconate 15 meq/ Multivitamins 10 ml/Chromium/ Copper/Manganese/ Seleni/Zn 0.5 ml/ Insulin Human Regular 35 unit/ Total Parenteral Nutrition/Amino Acids/Dextrose/ Fat Emulsion Intravenous 1,400 ml @ 58.333 mls/ hr TPN CONT IV Last administered on 08/07/19at 22:46; Start 08/07/19 at 22:00; Stop 08/08/19 at 21:59; Status DC Sodium Chloride 100 meq/Potassium Chloride 40 meq/ Magnesium Sulfate 20 meq/Calcium Gluconate 15 meq/ Multivitamins 10 ml/Chromium/ Copper/Manganese/ Seleni/Zn 0.5 ml/ Insulin Human Regular 35 unit/ Total Parenteral Nutrition/Amino Acids/Dextrose/ Fat Emulsion Intravenous 1,400 ml @ 58.333 mls/ hr TPN CONT IV Last administered on 08/08/19at 22:31; Start 08/08/19 at 22:00; Stop 08/09/19 at 21:59; Status DC Fentanyl Citrate (Fentanyl 2ml Vial) 50 mcg PRN Q2HR PRN IVP PAIN Last administered on 08/15/19at 13:32; Start 08/08/19 at 21:00; Stop 08/16/19 at 12:53; Status DC Fentanyl Citrate (Fentanyl 2ml Vial) 25 mcg PRN Q2HR PRN IVP PAIN; Start 08/08/19 at 21:00; Stop 08/16/19 at 12:54; Status DC Enoxaparin Sodium (Lovenox 100mg Syringe) 100 mg Q12HR SQ ; Start 08/09/19 at 21:00; Status UNV Amino Acids/ Glycerin/ Electrolytes 1,000 ml @ 75 mls/hr [id number] IV ; Start 08/08/19 at 21:15; Status UNV Sodium Chloride 1,000 ml @ 1,000 mls/hr Q1H PRN IV hypotension; Start 08/09/19 at 07:56; Stop 08/09/19 at 13:55; Status DC Albumin Human 200 ml @ 200 mls/hr 1X PRN PRN IV Hypotension Last administered on 08/09/19at 08:40; Start 08/09/19 at 08:00; Stop 08/09/19 at 13:59; Status DC Sodium Chloride 1,000 ml @ 400 mls/hr Q2H30M PRN IV PATENCY; Start 08/09/19 at 07:56; Stop 08/09/19 at 19:55; Status DC Info (PHARMACY MONITORING -- do not chart) 1 each PRN DAILY PRN MC SEE COMMENTS; Start 08/09/19 at 08:00; Status UNV Info (PHARMACY MONITORING -- do not chart) 1 each PRN DAILY PRN MC SEE COMMENTS; Start 08/09/19 at 08:00; Status UNV Daptomycin 430 mg/ Sodium Chloride 50 ml @ 100 mls/hr Q24H IV Last administered on 08/09/19at 12:35; Start 08/09/19 at 09:00; Stop 08/09/19 at 12:49 ; Status DC Sodium Chloride 100 meq/Potassium Chloride 40 meq/ Magnesium Sulfate 20 meq/Calcium Gluconate 15 meq/ Multivitamins 10 ml/Chromium/ Copper/Manganese/ Seleni/Zn 0.5 ml/ Insulin Human Regular 35 unit/ Total Parenteral Nutrition/Amino Acids/Dextrose/ Fat Emulsion Intravenous 1,400 ml @ 58.333 mls/ hr TPN CONT IV Last administered on 08/09/19at 21:26; Start 08/09/19 at 22:00; Stop 08/10/19 at 21:59; Status DC Daptomycin 430 mg/ Sodium Chloride 50 ml @ 100 mls/hr Q48H IV ; Start 08/11/19 at 09:00; Stop 08/10/19 at 11:55; Status DC Sodium Chloride 100 meq/Potassium Chloride 40 meq/ Magnesium Sulfate 20 meq/Calcium Gluconate 15 meq/ Multivitamins 10 ml/Chromium/ Copper/Manganese/ Seleni/Zn 0.5 ml/ Insulin Human Regular 35 unit/ Total Parenteral Nu trition/Amino Acids/Dextrose/ Fat Emulsion Intravenous 1,400 ml @ 58.333 mls/ hr TPN CONT IV Last administered on 08/10/19at 22:27; Start 08/10/19 at 22:00; Stop 08/11/19 at 21:59; Status DC Daptomycin 430 mg/ Sodium Chloride 50 ml @ 100 mls/hr Q24H IV Last administered on 08/12/19at 15:07; Start 08/10/19 at 13:00; Stop 08/13/19 at 13:15; Status DC Sodium Chloride 100 meq/Potassium Chloride 40 meq/ Magnesium Sulfate 20 meq/Calcium Gluconate 10 meq/ Multivitamins 10 ml/Chromium/ Copper/Manganese/ Seleni/Zn 0.5 ml/ Insulin Human Regular 35 unit/ Total Parenteral Nutrition/Amino Acids/Dextrose/ Fat Emulsion Intravenous 1,400 ml @ 58.333 mls/ hr TPN CONT IV Last administered on 08/12/19at 00:06; Start 08/11/19 at 22:00; Stop 08/12/19 at 21:59; Status DC Alteplase, Recombinant (Cathflo For Central Catheter Clearance) 1 mg 1X ONCE INT CAT Last administered on 08/12/19at 11:44; Start 08/12/19 at 10:45; Stop 08/12/19 at 10:46; Status DC Ondansetron HCl (Zofran) 4 mg PRN Q6HRS PRN IV NAUSEA/VOMITING; Start 08/15/19 at 07:00; Stop 08/16/19 at 06:59; Status DC Fentanyl Citrate (Fentanyl 2ml Vial) 25 mcg PRN Q5MIN PRN IV MILD PAIN 1-3; Start 08/15/19 at 07:00; Stop 08/16/19 at 06:59; Status DC Fentanyl Citrate (Fentanyl 2ml Vial) 50 mcg PRN Q5MIN PRN IV MODERATE TO SEVERE PAIN Last administered on 08/15/19at 10:17; Start 08/15/19 at 07:00; Stop 08/16/19 at 06:59; Status DC Ringer's Solution 1,000 ml @ 30 mls/hr Q24H IV ; Start 08/15/19 at 07:00; Stop 08/15/19 at 18:59; Status DC Lidocaine HCl (Xylocaine-Mpf 1% 2ml Vial) 2 ml PRN 1X PRN ID PRIOR TO IV START; Start 08/15/19 at 07:00; Stop 08/16/19 at 06:59; Status DC Prochlorperazine Edisylate (Compazine) 5 mg PACU PRN PRN IV NAUSEA, MRX1; Start 08/15/19 at 07:00; Stop 08/16/19 at 06:59; Status DC Sodium Acetate 50 meq/Potassium Acetate 55 meq/ Magnesium Sulfate 20 meq/Calcium Gluconate 10 meq/ Multivitamins 10 ml/Chromium/ Copper/Manganese/ Seleni/Zn 0.5 ml/ Insulin Human Regular 35 unit/ Total Parenteral Nutrition/Amino Acids/Dextrose/ Fat Emulsion Intravenous 1,400 ml @ 58.333 mls/ hr TPN CONT IV ; Start 08/12/19 at 22:00; Stop 08/12/19 at 14:15; Status DC Sodium Acetate 50 meq/Potassium Acetate 55 meq/ Magnesium Sulfate 20 meq/Calcium Gluconate 10 meq/ Multivitamins 10 ml/Chromium/ Copper/Manganese/ Seleni/Zn 0.5 ml/ Insulin Human Regular 35 unit/ Total Parenteral Nutrition/Amino Acids/Dextrose/ Fat Emulsion Intravenous 1,800 ml @ 75 mls/hr TPN CONT IV Last administered on 08/12/19at 22:38; Start 08/12/19 at 22:00; Stop 08/13/19 at 21:59; Status DC Sodium Chloride 1,000 ml @ 1,000 mls/hr Q1H PRN IV hypotension; Start 08/12/19 at 15:31; Stop 08/12/19 at 21:30; Status DC Diphenhydramine HCl (Benadryl) 25 mg 1X PRN PRN IV ITCHING; Start 08/12/19 at 15:45; Stop 08/13/19 at 15:44; Status DC Diphenhydramine HCl (Benadryl) 25 mg 1X PRN PRN IV ITCHING; Start 08/12/19 at 15:45; Stop 08/13/19 at 15:44; Status DC Sodium Chloride 1,000 ml @ 400 mls/hr Q2H30M PRN IV PATENCY; Start 08/12/19 at 15:31; Stop 08/13/19 at 03:30; Status DC Info (PHARMACY MONITORING -- do not chart) 1 each PRN DAILY PRN MC SEE COMMENTS; Start 08/12/19 at 15:45 Sodium Acetate 50 meq/Potassium Acetate 55 meq/ Magnesium Sulfate 20 meq/Calcium Gluconate 10 meq/ Multivitamins 10 ml/Chromium/ Copper/Manganese/ Seleni/Zn 0.5 ml/ Insulin Human Regular 35 unit/ Total Parenteral Nutrition/Amino Acids/Dextrose/ Fat Emulsion Intravenous 1,800 ml @ 75 mls/hr TPN CONT IV Last administered on 08/13/19at 22:03; Start 08/13/19 at 22:00; Stop 08/14/19 at 21:59; Status DC Daptomycin 430 mg/ Sodium Chloride 50 ml @ 100 mls/hr Q24H IV Last administered on 08/18/19at 13:00; Start 08/13/19 at 13:00; Stop 08/18/19 at 20:58; Status DC Heparin Sodium (Porcine) 1000 unit/Sodium Chloride 1,001 ml @ 1,001 mls/hr 1X ONCE IRR ; Start 08/15/19 at 06:00; Stop 08/15/19 at 06:59; Status DC Potassium Acetate 55 meq/Magnesium Sulfate 20 meq/ Calcium Gluconate 10 meq/ Multivitamins 10 ml/Chromium/ Copper/Manganese/ Seleni/Zn 0.5 ml/ Insulin Human Regular 35 unit/ Total Parenteral Nutrition/Amino Acids/Dextrose/ Fat Emulsion Intravenous 1,920 ml @ 80 mls/hr TPN CONT IV Last administered on 08/14/19at 22:10; Start 08/14/19 at 22:00; Stop 08/15/19 at 21:59; Status DC Dexamethasone Sodium Phosphate (Decadron) 4 mg STK-MED ONCE .ROUTE ; Start 08/15/19 at 10:56; Stop 08/15/19 at 10:57; Status DC Ondansetron HCl (Zofran) 4 mg STK-MED ONCE .ROUTE ; Start 08/15/19 at 10:56; Stop 08/15/19 at 10:57; Status DC Rocuronium [place] (Zemuron) 50 mg STK-MED ONCE .ROUTE ; Start 08/15/19 at 10:56; Stop 08/15/19 at 10:57; Status DC Fentanyl Citrate (Fentanyl 2ml Vial) 100 mcg STK-MED ONCE .ROUTE ; Start 08/15/19 at 10:56; Stop 08/15/19 at 10:57; Status DC Bupivacaine HCl/ Epinephrine Bitart (Sensorcain-Epi 0.5%-1:992137 Mpf) 30 ml STK-MED ONCE .ROUTE Last administered on 08/15/19at 12:01; Start 08/15/19 at 10:58; Stop 08/15/19 at 10:58; Status DC Cellulose (Surgicel Hemostat 2x14) 1 each STK-MED ONCE .ROUTE ; Start 08/15/19 at 10:58; Stop 08/15/19 at 10:59; Status DC Iohexol (Omnipaque 300 Mg/ml) 50 ml STK-MED ONCE .ROUTE ; Start 08/15/19 at 10:58; Stop 08/15/19 at 10:59; Status DC Cellulose (Surgicel Hemostat 4x8) 1 each STK-MED ONCE .ROUTE ; Start 08/15/19 at 10:58; Stop 08/15/19 at 10:59; Status DC Bisacodyl (Dulcolax Supp) 10 mg STK-MED ONCE .ROUTE ; Start 08/15/19 at 10:59; Stop 08/15/19 at 10:59; Status DC Heparin Sodium (Porcine) 1000 unit/Sodium Chloride 1,001 ml @ 1,001 mls/hr 1X ONCE IRR ; Start 08/15/19 at 12:00; Stop 08/15/19 at 12:59; Status DC Propofol 20 ml @ As Directed STK-MED ONCE IV ; Start 08/15/19 at 11:05; Stop 08/15/19 at 11:05; Status DC Sevoflurane (Ultane) 90 ml STK-MED ONCE IH ; Start 08/15/19 at 11:05; Stop 08/15/19 at 11:05; Status DC Sevoflurane (Ultane) 60 ml STK-MED ONCE IH ; Start 08/15/19 at 12:26; Stop 08/15/19 at 12:27; Status DC Propofol 20 ml @ As Directed STK-MED ONCE IV ; Start 08/15/19 at 12:26; Stop 08/15/19 at 12:27; Status DC Phenylephrine HCl (PHENYLEPHRINE in 0.9% NACL PF) 1 mg STK-MED ONCE IV ; Start 08/15/19 at 12:34; Stop 08/15/19 at 12:34; Status DC Heparin Sodium (Porcine) (Heparin Sodium) 5,000 unit Q12HR SQ Last administered on 08/23/19at 09:12; Start 08/15/19 at 21:00 Sodium Chloride (Normal Saline Flush) 3 ml QSHIFT PRN IV AFTER MEDS AND BLOOD DRAWS; Start 08/15/19 at 13:45 Naloxone HCl (Narcan) 0.4 mg PRN Q2MIN PRN IV SEE INSTRUCTIONS; Start 08/15/19 at 13:45 Sodium Chloride 1,000 ml @ 25 mls/hr Q24H IV Last administered on 08/21/19at 19:49; Start 08/15/19 at 13:37 Naloxone HCl (Narcan) 0.4 mg PRN Q2MIN PRN IV SEE INSTRUCTIONS; Start 08/15/19 at 14:30; Status UNV Sodium Chloride 1,000 ml @ 25 mls/hr Q24H IV ; Start 08/15/19 at 14:30; Status UNV Hydromorphone HCl 30 ml @ 0 mls/hr CONT PRN PRN IV PER PROTOCOL Last administered on 08/20/19at 16:08; Start 08/15/19 at 14:30; Stop 08/22/19 at 08:55; Status DC Potassium Acetate 55 meq/Magnesium Sulfate 20 meq/ Calcium Gluconate 10 meq/ Multivitamins 10 ml/Chromium/ Copper/Manganese/ Seleni/Zn 0.5 ml/ Insulin Human Regular 35 unit/ Total Parenteral Nutrition/Amino Acids/Dextrose/ Fat Emulsion Intravenous 1,920 ml @ 80 mls/hr TPN CONT IV Last administered on 08/15/19at 22:01; Start 08/15/19 at 22:00; Stop 08/16/19 at 21:59; Status DC Bumetanide (Bumex) 2 mg [id number] IV Last administered on 08/19/19at 13:50; Start 08/16/19 at 14:00; Stop 08/20/19 at 14:10; Status DC Meropenem 1 gm/ Sodium Chloride 100 ml @ 200 mls/hr Q8HRS IV Last administered on 08/23/19at 06:10; Start 08/16/19 at 14:00 Potassium Acetate 55 meq/Magnesium Sulfate 20 meq/ Calcium Gluconate 10 meq/ Multivitamins 10 ml/Chromium/ Copper/Manganese/ Seleni/Zn 0.5 ml/ Insulin Human Regular 35 unit/ Total Parenteral Nutrition/Amino Acids/Dextrose/ Fat Emulsion Intravenous 1,920 ml @ 80 mls/hr TPN CONT IV Last administered on 08/16/19at 22:02; Start 08/16/19 at 22:00; Stop 08/17/19 at 21:59; Status DC Hydromorphone HCl (Dilaudid Standard [employer] SPECIALIST) 12 mg STK-MED ONCE IV ; Start 08/15/19 at 14:35; Stop 08/16/19 at 13:53; Status DC Artificial Tears (Artificial Tears) 1 drop PRN Q15MIN PRN OU DRY EYE Last administered on 08/23/19at 09:10; Start 08/17/19 at 05:30 Hydromorphone HCl (Dilaudid Standard [employer] SPECIALIST) 12 mg STK-MED ONCE IV ; Start 08/16/19 at 12:05; Stop 08/17/19 at 09:15; Status DC Potassium Acetate 65 meq/Magnesium Sulfate 20 meq/ Calcium Gluconate 10 meq/ Multivitamins 10 ml/Chromium/ Copper/Manganese/ Seleni/Zn 0.5 ml/ Insulin Human Regular 30 unit/ Total Parenteral Nutrition/Amino Acids/Dextrose/ Fat Emulsion Intravenous 1,920 ml @ 80 mls/hr TPN CONT IV Last administered on 08/17/19at 22:22; Start 08/17/19 at 22:00; Stop 08/18/19 at 21:59; Status DC Cyclobenzaprine HCl (Flexeril) 10 mg PRN Q6HRS PRN PO MUSCLE SPASMS; Start 08/18/19 at 10:45 Potassium Acetate 55 meq/Magnesium Sulfate 20 meq/ Calcium Gluconate 10 meq/ Multivitamins 10 ml/Chromium/ Copper/Manganese/ Seleni/Zn 0.5 ml/ Insulin Human Regular 30 unit/ Total Parenteral Nutrition/Amino Acids/Dextrose/ Fat Emulsion Intravenous 1,920 ml @ 80 mls/hr TPN CONT IV Last administered on 08/19/19at 01:00; Start 08/18/19 at 22:00; Stop 08/19/19 at 21:59; Status DC Magnesium Sulfate 50 ml @ 25 mls/hr 1X ONCE IV Last administered on 08/18/19at 17:18; Start 08/18/19 at 12:45; Stop 08/18/19 at 14:44; Status DC Potassium Chloride/Water 100 ml @ 100 mls/hr 1X ONCE IV Last administered on 08/19/19at 11:27; Start 08/19/19 at 12:00; Stop 08/19/19 at 12:59; Status DC Hydromorphone HCl (Dilaudid Standard [employer] SPECIALIST) 12 mg STK-MED ONCE IV ; Start 08/17/19 at 10:50; Stop 08/19/19 at 11:02; Status DC Hydromorphone HCl (Dilaudid Standard [employer] SPECIALIST) 12 mg STK-MED ONCE IV ; Start 08/18/19 at 13:47; Stop 08/19/19 at 11:03; Status DC Potassium Acetate 30 meq/Magnesium Sulfate 20 meq/ Calcium Gluconate 10 meq/ Multivitamins 10 ml/Chromium/ Copper/Manganese/ Seleni/Zn 0.5 ml/ Insulin Human Regular 30 unit/ Potassium Chloride 30 meq/ Total Parenteral Nutrition/Amino Acids/Dextrose/ Fat Emulsion Intravenous 1,920 ml @ 80 mls/hr TPN CONT IV Last administered on 08/19/19at 22:34; Start 08/19/19 at 22:00; Stop 08/20/19 at 21:59; Status DC Potassium Chloride/Water 100 ml @ 100 mls/hr Q1H IV Last administered on 08/20/19at 13:05; Start 08/20/19 at 07:00; Stop 08/20/19 at 10:59; Status DC Magnesium Sulfate 50 ml @ 25 mls/hr 1X ONCE IV Last administered on 08/20/19at 10:34; Start 08/20/19 at 10:30; Stop 08/20/19 at 12:29; Status DC Potassium Chloride 75 meq/ Magnesium Sulfate 20 meq/Calcium Gluconate 10 meq/ Multivitamins 10 ml/Chromium/ Copper/Manganese/ Seleni/Zn 0.5 ml/ Insulin Human Regular 30 unit/ Total Parenteral Nutrition/Amino Acids/Dextrose/ Fat Emulsion Intravenous 1,920 ml @ 80 mls/hr TPN CONT IV Last administered on 08/20/19at 21:51; Start 08/20/19 at 22:00; Stop 08/21/19 at 22:00; Status DC Potassium Chloride 75 meq/ Magnesium Sulfate 20 meq/Calcium Gluconate 10 meq/ Multivitamins 10 ml/Chromium/ Copper/Manganese/ Seleni/Zn 0.5 ml/ Insulin Human Regular 25 unit/ Total Parenteral Nutrition/Amino Acids/Dextrose/ Fat Emulsion Intravenous 1,920 ml @ 80 mls/hr TPN CONT IV Last administered on 08/21/19at 22:04; Start 08/21/19 at 22:00; Stop 08/22/19 at 21:59; Status DC Hydromorphone HCl (Dilaudid) 0.4 mg PRN Q4HRS PRN IVP PAIN Last administered on 08/22/19at 10:57; Start 08/22/19 at 09:00; Stop 08/22/19 at 18:59; Status DC Micafungin Sodium 100 mg/Dextrose 100 ml @ 100 mls/hr Q24H IV Last administered on 08/23/19at 12:21; Start 08/22/19 at 11:00 Daptomycin 485 mg/ Sodium Chloride 50 ml @ 100 mls/hr Q24H IV Last adm inistered on 08/23/19at 11:28; Start 08/22/19 at 11:00 Potassium Chloride 75 meq/ Magnesium Sulfate 15 meq/Calcium Gluconate 8 meq/ Multivitamins 10 ml/Chromium/ Copper/Manganese/ Seleni/Zn 0.5 ml/ Insulin Human Regular 25 unit/ Total Parenteral Nutrition/Amino Acids/Dextrose/ Fat Emulsion Intravenous 1,920 ml @ 80 mls/hr TPN CONT IV Last administered on 08/22/19at 23:08; Start 08/22/19 at 22:00; Stop 08/23/19 at 21:59 Haloperidol Lactate (Haldol Inj) 3 mg 1X ONCE IVP Last administered on 08/22/19at 14:37; Start 08/22/19 at 14:30; Stop 08/22/19 at 14:31; Status DC Hydromorphone HCl (Dilaudid) 1 mg PRN Q4HRS PRN IVP PAIN Last administered on 08/23/19at 09:11; Start 08/22/19 at 19:00 Potassium Chloride 75 meq/ Magnesium Sulfate 15 meq/Calcium Gluconate 8 meq/ Multivitamins 10 ml/Chromium/ Copper/Manganese/ Seleni/Zn 0.5 ml/ Insulin Human Regular 20 unit/ Total Parenteral Nutrition/Amino Acids/Dextrose/ Fat Emulsion Intravenous 1,920 ml @ 80 mls/hr TPN CONT IV ; Start 08/23/19 at 22:00; Stop 08/24/19 at 21:59 Active Scripts Active Reported Bisoprolol Fumarate 5 Mg Tablet 10 Mg PO DAILY Vitals/I & O Vital Sign - Last 24 Hours 08/22/19 08/22/19 08/22/19 08/22/19 15:00 15:40 16:00 16:00 Temp 97.0 97.0 Pulse 118 111 Resp 25 30 B/P (MAP) 118/97 (104) 117/65 (82) Pulse Ox 97 99 99 O2 Delivery Tracheal Collar Tracheal Collar Trach Collar Tracheal Collar O2 Flow Rate 10.0 10.0 10.0 10.0 08/22/19 08/22/19 08/22/19 08/22/19 17:00 18:00 19:00 19:55 Pulse 106 115 106 Resp 27 32 28 B/P (MAP) 113/58 (76) 140/67 (91) 116/66 (83) Pulse Ox 98 100 99 98 O2 Delivery Tracheal Collar Tracheal Collar Tracheal Collar Tracheal Collar O2 Flow Rate 10.0 10.0 8.0 8.0 5/4/20 5/4/20 5/4/20 5//20 20:00 20:00 21:00 21:12 Temp 98.4 98.4 Pulse 118 132 Resp 35 38 B/P (MAP) 152/79 (103) 169/83 (111) Pulse Ox 99 100 100 O2 Delivery Tracheal Collar Trach Collar Tracheal Collar Tracheal Collar O2 Flow Rate 8.0 8.0 8.0 8.0 5//20 5//20 5//20 5// 22:00 23:00 23:45 00:00 Pulse 124 120 Resp 28 28 B/P (MAP) 156/73 (100) 160/81 (107) Pulse Ox 98 99 99 O2 Delivery Tracheal Collar Tracheal Collar Ventilator Mechanical Ventilator O2 Flow Rate 8.0 8.0 08/22/20 5//20 5//20 5/20 00:00 01:00 01:30 02:00 Temp 99.2 99.2 Pulse 86 87 118 Resp 28 B/P (MAP) 95/54 (68) 99/58 (72) 152/88 (109) Pulse Ox 93 96 96 99 O2 Delivery Ventilator Ventilator Ventilator Ventilator 08/22/20 5/5/20 5/5/20 5//20 02:32 03:00 04:00 04:00 Temp 97.5 97.5 Pulse 111 114 Resp 28 B/P (MAP) 169/86 (113) 127/59 (81) Pulse Ox 100 99 98 O2 Delivery Ventilator Ventilator Ventilator Mechanical Ventilator 5/5/20 5/5/20 5/5/20 5//20 05:00 05:00 06:00 07:00 Temp 102.4 102.4 Pulse 99 91 90 Resp 17 18 18 B/P (MAP) 115/63 (80) 94/56 (69) 89/48 (62) Pulse Ox 95 98 97 97 O2 Delivery Ventilator Ventilator Ventilator Ventilator 20 5/5/20 5/5/20 5/20 07:30 07:46 08:00 08:00 Temp 100.2 100.2 Pulse 92 Resp 18 B/P (MAP) 100/54 (69) Pulse Ox 97 97 O2 Delivery Ventilator Tracheal Collar Trach Collar O2 Flow Rate 10.0 08/23/19 08/23/19/09/0608/23/19 09:00 09:00 09:11 10:00 Temp 98.4 98.4 Pulse 132 122 Resp 51 35 34 B/P (MAP) 138/86 (103) 122/96 (105) Pulse Ox 94 98 95 96 O2 Delivery Tracheal Collar Tracheal Collar Tracheal Collar Tracheal Collar O2 Flow Rate 10.0 08/23/19 08/23/19/09/0608/23/19 11:00 11:45 12:00 12:00 Temp 98.5 98.5 Pulse 117 102 Resp 32 24 31 B/P (MAP) 127/68 (87) 125/64 (84) Pulse Ox 98 97 99 O2 Delivery Tracheal Collar Tracheal Collar Tracheal Collar Trach Collar O2 Flow Rate 10.0 10.0 08/23/19 13:16 Pulse 96 Resp 30 B/P (MAP) 117/60 (79) Pulse Ox 99 O2 Delivery Tracheal Collar Intake and Output 08/22/19 08/22/19 08/23/19 15:00 23:00 07:00 Intake Total 150 ml 1569 ml 1333 ml Output Total 640 ml 745 ml 555 ml Balance -490 ml 824 ml 778 ml Hemodynamically unstable?: No Is patient in severe pain?: Yes Is NPO status required?: Yes NIELS MCGILL MD August 23, 2019 14:04
--- NOTE | 2019-08-23 15:00 | NUR ---
SS following up with discharge planning. SS discussed with pt RN. Pt is on trach shield and TPN. Pt not able to tolerate speaking valve. Pt will need to be able to tolerate speaking valve prior to assessing for PO diet. Per RN, pt stood today with the walker and took a couple of steps. Pt's daughters have appt with [facility] on 08/25/2019 at 1500 to complete disability packet. SS will continue to follow for discharge planning.
[2019-08-23] MEDS: ONDANSETRON PF 4 MG/2 ML VIAL. IV PRN (15:33)
[2019-08-23] MEDS ORDERED: AMINO ACID IV SCH ×9 (22:00)
[2019-08-23] MEDS ORDERED: TOTAL PARENTERAL NUTRITION IV SCH ×9 (22:00)
[2019-08-23] MEDS ORDERED: [UNRECOGNIZED DRUG - OTHER] IV SCH ×9 (22:00)
[2019-08-23] MEDS ORDERED: DEXTROSE 70% IV SCH ×9 (22:00)
[2019-08-24] VITALS (28 sets, daily range): BP systolic 84–174; BP diastolic 48–92
[2019-08-24] MEDS: HYDROmorphone 2 MG/ML VIAL IVP PRN ×4 (00:03→19:40)
[2019-08-24] MEDS: INSULIN LISPRO 300 UNITS/3 ML VIAL. SQ SCH ×4 (06:00→17:31)
[2019-08-24] MEDS: DEXMEDETOMIDINE 400 MCG in IV NORMAL SALINE 100ML 96 ML IV PRN ×5 (06:03→22:16)
[2019-08-24] MEDS: MEROPENEM 1 GM in IV NORMAL SALINE 100ML 100 ML IV SCH ×3 (06:04→20:58)
[2019-08-24 06:19] LABS: BASO % 0 % (0-3); EOS # 0.2 x10^3/uL (0.0-0.7); EOS % 3 % (0-3); LYMPH # 1.9 x10^3/uL (1.0-4.8); LYMPH % 21 % (24-48); MEAN CORPUSCULAR HEMOGLOBIN 29 pg (25-35); MEAN CORPUSCULAR HGB CONC 32 g/dL (31-37); MEAN CORPUSCULAR VOLUME 91 fL (79-100); MONO # 0.5 x10^3/uL (0.0-1.1); MONO % 6 % (0-9); NEUT # 6.1 x10^3/uL (1.8-7.7); NEUT % 70 % (31-73); PLATELET COUNT 416 x10^3/uL (140-400); RED CELL DISTRIBUTION WIDTH 18.8 % (11.5-14.5); WHITE BLOOD COUNT 8.8 x10^3/uL (4.0-11.0)
[2019-08-24 06:35] LABS: ALBUMIN 1.8 g/dL (3.4-5.0); ALBUMIN/GLOBULIN RATIO 0.5 (1.0-1.7); CREATININE 0.9 mg/dL (0.6-1.0); GFR 66.5; POTASSIUM 4.3 mmol/L (3.5-5.1); TOTAL BILIRUBIN 0.4 mg/dL (0.2-1.0); TOTAL PROTEIN 5.6 g/dL (6.4-8.2)
[2019-08-24 07:03] LABS: HEMATOCRIT 20.9 % (36.0-47.0); HEMOGLOBIN 6.8 g/dL (12.0-15.5)
--- NOTE | 2019-08-24 08:32 | PDOC ---
Infectious Disease Note Subjective Subjective Uncomfortable in abd ? less about same as yesterday mild nausea still Feels distended still -stable on trach with vent Discussed with RN Vital Sign Vital Signs Vital Signs Date Time Temp Pulse Resp B/P (MAP) Pulse Ox O2 Delivery O2 Flow Rate FiO2 08/24/19 08:03 96 Ventilator 08/24/19 07:00 101.5 132 39 158/80 (106) 101.5 08/24/19 00:03 8.0 Physical Exam PHYSICAL EXAM GENERAL: Propped up in bed, Alert. weak appearing but not toxic. slight better HEENT: Pupils equal, + NGT, oral cavity dry NECK: Trach/vent LUNGS: rhonchi HEART: S1, S2, regular ABDOMEN: Distended, hypoactive BS, drain placement (08/14 - serous fluid) : Lind (08/01) EXTREMITIES: Generalized edema, no cyanosis, SCDs bilaterally DERMATOLOGIC: Warm and dry. No generalized rash. CENTRAL NERVOUS SYSTEM: weak, mouthing words to simple questions PICC line in place August 18, 2019 clean HDC has been removed LIJ removed Labs Lab Laboratory Tests Test 08/23/19 12:18 08/23/19 18:13 08/24/19 00:09 08/24/19 06:05 Glucose (Fingerstick) 147 mg/dL (70-99) 143 mg/dL (70-99) 151 mg/dL (70-99) White Blood Count 8.8 x10^3/uL (4.0-11.0) Red Blood Count 2.30 x10^6/uL (3.50-5.40) Hemoglobin 6.8 g/dL (12.0-15.5) Hematocrit 20.9 % (36.0-47.0) Mean Corpuscular Volume 91 fL (79-100) Mean Corpuscular Hemoglobin 29 pg (25-35) Mean Corpuscular Hemoglobin Concent 32 g/dL (31-37) Red Cell Distribution Width 18.8 % (11.5-14.5) Platelet Count 416 x10^3/uL (140-400) Neutrophils (%) (Auto) 70 % (31-73) Lymphocytes (%) (Auto) 21 % (24-48) Monocytes (%) (Auto) 6 % (0-9) Eosinophils (%) (Auto) 3 % (0-3) Basophils (%) (Auto) 0 % (0-3) Neutrophils # (Auto) 6.1 x10^3/uL (1.8-7.7) Lymphocytes # (Auto) 1.9 x10^3/uL (1.0-4.8) Monocytes # (Auto) 0.5 x10^3/uL (0.0-1.1) Eosinophils # (Auto) 0.2 x10^3/uL (0.0-0.7) Basophils # (Auto) 0.0 x10^3/uL (0.0-0.2) Sodium Level 152 mmol/L (136-145) Potassium Level 4.3 mmol/L (3.5-5.1) Chloride Level 113 mmol/L (98-107) Carbon Dioxide Level 31 mmol/L (21-32) Anion Gap 8 (6-14) Blood Urea Nitrogen 38 mg/dL (7-20) Creatinine 0.9 mg/dL (0.6-1.0) Estimated GFR (Cockcroft-Gault) 66.5 BUN/Creatinine Ratio 42 (6-20) Glucose Level 137 mg/dL (70-99) Calcium Level 9.0 mg/dL (8.5-10.1) Total Bilirubin 0.4 mg/dL (0.2-1.0) Aspartate Amino Transf (AST/SGOT) 35 U/L (15-37) Alanine Aminotransferase (ALT/SGPT) 30 U/L (14-59) Alkaline Phosphatase 84 U/L (46-116) Total Protein 5.6 g/dL (6.4-8.2) Albumin 1.8 g/dL (3.4-5.0) Albumin/Globulin Ratio 0.5 (1.0-1.7) Test 08/24/19 06:09 Glucose (Fingerstick) 128 mg/dL (70-99) Micro U/S 08/21 IMPRESSION: Complex fluid collections within the right and lower quadrants. The abdominal visceral and vascular structures are not formally assessed on this exam. CT Scan 08/21 IMPRESSION: 1. Findings consistent with sequelae of severe acute pancreatitis with enlarging peripancreatic and intra-abdominal fluid collections as described 2. Interval placement of a drain in the ventral abdominal wall with and partial evacuation of the ventral extraperitoneal fluid collection previously evident. 08/14 Operative Note: After obtaining informed consent, patient was taken to OR, induced under GETA and prepped in the usual fashion. 5 mm port placed umbilical and right mid abdomen, all under laparoscopic guidance. Large amount of ascites encountered and aspirated off. Fluid was clear with some whitish debris. Viscera was completely locked in with obliteration of all planes, preventing any significant exploration. Copious irrigation. Given patient's overall clinical improvement, favor against open procedure and attempt at cholecystectomy and/or necrosectomy, given high risk of complications. Cholecystectomy will need to be performed, but favor waiting 3 months. 19 KAYLIN drain placed and secured with 3 0 nylon. Skin repaired with 4 0 monocryl. Dressing placed. Patient tolerated procedure well and sent to PACU in stable condition. All counts correct. Wound class is 4. CT Chest Abd/pelv 08/01 CT CHEST: CT scan the chest was done without contrast. There is a tracheostomy tube in good position. There are large bilateral pleural effusions. There is atelectasis in both lung bases. There is no mediastinal adenopathy. Right arm PICC line extends to the superior vena cava. There is a temporary dialysis catheter extending to the vena cava near the atrium. IMPRESSION: 1. Large bilateral effusions. 2. Atelectasis of both lungs. End impression CT abdomen pelvis CT scan the abdomen pelvis was done following CT chest with contrast. NG tube extends into the stomach. Spleen is normal. There is no mass or hydronephrosis in the kidneys. There is a gallstone the gallbladder. A focal liver lesion is not identified. There is diffuse necrosis of the pancreas. There is peripancreatic fluid. The pattern is similar to the recent study. There is fluid in the paracolic gutters. There is retroperitoneal fluid surrounding the kidneys. Ascites extends into the pelvis. Ascites is similar to the prior study. There is no bowel obstruction. There is no free air. IMPRESSION: 1. Diffuse pancreatic necrosis. 2. A extensive retroperitoneal fluid and inflammation. 3. Cholelithiasis. 4. Moderate to large volume ascites with little change. CT A/P, 07/27 IMPRESSION: 1. Increased ascites. 2. 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 Cholelithiasis with thickening of the gallbladder wall. 4. Persistent pleural effusions and atelectasis in the lung bases. Objective Assessment Fever - intermittent could be from underlying pancreatitis blood cults 08/21 - neg so far Abd distention - U/S and CT reviewed Acute pancreatitis with persistent necrosis CT a/p 07/27 Increased ascites. Persistent evidence of necrotizing pancreatitis with fluid and phlegmon at the pancreas 08/14 status post KAYLIN drain placement - yeast on cult; Cult line tip 08/17 - neg Anemia Cholelithiasis with thickening of the gallbladder wall. Leucocytosis improving JUANA,Hyperkalemia, Metabolic acidosis off dialysis Acute hypoxic resp failure ,bilateral pleural effusion and atelectasis hypocalcemia Prediabetes HTN s/p trach Plan Plan of Care Consult IR for eval of abd fluid drainage given fever and discomfort Uncertain if may benefit from drainage of fluid pockets but they appear to be increasing in size on CT. Await GI f/u. Gen surgery note reviewed from today - no mention of needing drainage Blood cult times 2 08/21 pending Add Micafungin 08/21 with yeast from 08/14 abd cult will have it worked up and sensitivity Dose Dapto 08/21 CBC/BMP in am cont merrem (07/26), Electrolytes per primary Anemia per primary Maintain aspiration precaution PT and OT as tolerated Continue supportive care D/w nursing WILLY BARAKAT MD August 24, 2019 08:32
[2019-08-24] MEDS: PANTOPRAZOLE IV PUSH 40 MG VIAL. IVP SCH (08:36)
[2019-08-24 08:57] LABS: HEMATOCRIT 20.1 % (36.0-47.0); HEMOGLOBIN 6.4 g/dL (12.0-15.5)
[2019-08-24] MEDS: HEPARIN for SUB-Q USE 5,000 UNIT/ML VIAL. SQ SCH ×2 (09:00→20:57)
[2019-08-24] MEDS: NORMAL SALINE IV SCH (09:51)
[2019-08-24] MEDS: DAPTOMYCIN IV SCH (09:51)
[2019-08-24] MEDS: MICAFUNGIN 100 MG in IV DEXTROSE 5% 100ML 100 ML IV SCH (10:44)
[2019-08-24] MEDS ORDERED: LIDOCAINE WITH 8.4% SOD BICARB 3 ML DISP.SYRIN. ONE ×2 (11:31→12:28)
--- NOTE | 2019-08-24 11:41 | PDOC ---
Subjective: Subjective: Lower abd pain contributes to nausea. Objective: Objective: D/w nurse - for paracentesis later, also to have transfusion. Vital Signs: Vital Signs Date Time Temp Pulse Resp B/P (MAP) Pulse Ox O2 Delivery O2 Flow Rate FiO2 08/24/19 11:32 Trach Collar 8.0 08/24/19 11:00 108 33 160/80 (106) 98 08/24/19 10:00 98.4 98.4 Labs: Laboratory Tests Test 08/23/19 12:18 08/23/19 18:13 08/24/19 00:09 08/24/19 06:05 Glucose (Fingerstick) 147 mg/dL 143 mg/dL 151 mg/dL White Blood Count 8.8 x10^3/uL Red Blood Count 2.30 x10^6/uL Hemoglobin 6.8 g/dL Hematocrit 20.9 % Mean Corpuscular Volume 91 fL Mean Corpuscular Hemoglobin 29 pg Mean Corpuscular Hemoglobin Concent 32 g/dL Red Cell Distribution Width 18.8 % Platelet Count 416 x10^3/uL Neutrophils (%) (Auto) 70 % Lymphocytes (%) (Auto) 21 % Monocytes (%) (Auto) 6 % Eosinophils (%) (Auto) 3 % Basophils (%) (Auto) 0 % Neutrophils # (Auto) 6.1 x10^3/uL Lymphocytes # (Auto) 1.9 x10^3/uL Monocytes # (Auto) 0.5 x10^3/uL Eosinophils # (Auto) 0.2 x10^3/uL Basophils # (Auto) 0.0 x10^3/uL Sodium Level 152 mmol/L Potassium Level 4.3 mmol/L Chloride Level 113 mmol/L Carbon Dioxide Level 31 mmol/L Anion Gap 8 Blood Urea Nitrogen 38 mg/dL Creatinine 0.9 mg/dL Estimated GFR (Cockcroft-Gault) 66.5 BUN/Creatinine Ratio 42 Glucose Level 137 mg/dL Calcium Level 9.0 mg/dL Total Bilirubin 0.4 mg/dL Aspartate Amino Transf (AST/SGOT) 35 U/L Alanine Aminotransferase (ALT/SGPT) 30 U/L Alkaline Phosphatase 84 U/L Total Protein 5.6 g/dL Albumin 1.8 g/dL Albumin/Globulin Ratio 0.5 Test 08/24/19 06:09 08/24/19 08:20 Glucose (Fingerstick) 128 mg/dL Hemoglobin 6.4 g/dL Hematocrit 20.1 % Mean Corpuscular Hemoglobin Concent 32 g/dL PE: GEN: NAD, resting HEENT: trach shield HEART: mildly tachycardic ABD: distended, quiet, uncomfortable NEURO/PSYCH: A & O 3 A/P: Gallstone pancreatitis, MOSF -- Plans for paracentesis. Hemodynamically unstable?: No Is patient in severe pain?: Yes Is NPO status required?: Yes CYNDEE FALCON August 24, 2019 11:41
--- NOTE | 2019-08-24 11:42 | PDOC ---
Provider Note Provider Note IR NOTE Patient with severe pancreatic now with multiple intraabdominal fluid collections. Also noted to have body wall edema and bilateral pleural effusions. There is a maturing pseudocyst between the stomach and pancreas, as well as bilateral retroperitoneal fluid collections. and pelvic fluid collections. These collections, communicate to some degree. The largest collection is in the pelvis and may be simple ascites. Will plan on inially draining the pelvic fluid. Pancreatic collection would preferably be drained via cystgastrostomy, which would perhaps be more efficacious once the cyst has mature further. Could aspirate collections for Dx, but leaving a drain in place is not first line treatment for the pseudocyst. Will avoid leaving drain in place to minimize risk of infection. Hemodynamically unstable?: No Is patient in severe pain?: Yes Is NPO status required?: Yes WENDY MACIEL MD August 24, 2019 11:42
--- NOTE | 2019-08-24 12:19 | PDOC ---
SURGICAL PROGRESS NOTE Subjective Pt sleeping comfortably on vent Vital Signs Vital Signs Date Time Temp Pulse Resp B/P (MAP) Pulse Ox O2 Delivery O2 Flow Rate FiO2 08/24/19 12:05 98.8 112 36 162/71 98.8 08/24/19 12:00 99 Tracheal Collar 8.0 I&O Intake and Output 08/24/19 07:00 Intake Total 2812 ml Output Total 2180 ml Balance 632 ml Intake Oral 0 ml IV Total 2812 ml Output Urine Total 2110 ml Drainage Total 70 ml PATIENT HAS A ORSARIO: Yes General: No acute distress Labs Laboratory Tests Test 08/22/19 18:17 08/23/19 00:21 08/23/19 06:35 08/23/19 06:38 Glucose (Fingerstick) 145 mg/dL (70-99) 153 mg/dL (70-99) 102 mg/dL (70-99) White Blood Count 7.3 x10^3/uL (4.0-11.0) Red Blood Count 2.55 x10^6/uL (3.50-5.40) Hemoglobin 7.3 g/dL (12.0-15.5) Hematocrit 23.2 % (36.0-47.0) Mean Corpuscular Volume 91 fL (79-100) Mean Corpuscular Hemoglobin 29 pg (25-35) Mean Corpuscular Hemoglobin Concent 32 g/dL (31-37) Red Cell Distribution Width 18.5 % (11.5-14.5) Platelet Count 370 x10^3/uL (140-400) Neutrophils (%) (Auto) 75 % (31-73) Lymphocytes (%) (Auto) 17 % (24-48) Monocytes (%) (Auto) 5 % (0-9) Eosinophils (%) (Auto) 3 % (0-3) Basophils (%) (Auto) 1 % (0-3) Neutrophils # (Auto) 5.5 x10^3/uL (1.8-7.7) Lymphocytes # (Auto) 1.2 x10^3/uL (1.0-4.8) Monocytes # (Auto) 0.4 x10^3/uL (0.0-1.1) Eosinophils # (Auto) 0.2 x10^3/uL (0.0-0.7) Basophils # (Auto) 0.0 x10^3/uL (0.0-0.2) Sodium Level 153 mmol/L (136-145) Potassium Level 4.1 mmol/L (3.5-5.1) Chloride Level 114 mmol/L (98-107) Carbon Dioxide Level 33 mmol/L (21-32) Anion Gap 6 (6-14) Blood Urea Nitrogen 41 mg/dL (7-20) Creatinine 0.9 mg/dL (0.6-1.0) Estimated GFR (Cockcroft-Gault) 66.5 Glucose Level 104 mg/dL (70-99) Calcium Level 8.6 mg/dL (8.5-10.1) Phosphorus Level 3.2 mg/dL (2.6-4.7) Magnesium Level 2.0 mg/dL (1.8-2.4) Test 08/23/19 12:18 08/23/19 18:13 08/24/19 00:09 08/24/19 06:05 Glucose (Fingerstick) 147 mg/dL (70-99) 143 mg/dL (70-99) 151 mg/dL (70-99) White Blood Count 8.8 x10^3/uL (4.0-11.0) Red Blood Count 2.30 x10^6/uL (3.50-5.40) Hemoglobin 6.8 g/dL (12.0-15.5) Hematocrit 20.9 % (36.0-47.0) Mean Corpuscular Volume 91 fL (79-100) Mean Corpuscular Hemoglobin 29 pg (25-35) Mean Corpuscular Hemoglobin Concent 32 g/dL (31-37) Red Cell Distribution Width 18.8 % (11.5-14.5) Platelet Count 416 x10^3/uL (140-400) Neutrophils (%) (Auto) 70 % (31-73) Lymphocytes (%) (Auto) 21 % (24-48) Monocytes (%) (Auto) 6 % (0-9) Eosinophils (%) (Auto) 3 % (0-3) Basophils (%) (Auto) 0 % (0-3) Neutrophils # (Auto) 6.1 x10^3/uL (1.8-7.7) Lymphocytes # (Auto) 1.9 x10^3/uL (1.0-4.8) Monocytes # (Auto) 0.5 x10^3/uL (0.0-1.1) Eosinophils # (Auto) 0.2 x10^3/uL (0.0-0.7) Basophils # (Auto) 0.0 x10^3/uL (0.0-0.2) Sodium Level 152 mmol/L (136-145) Potassium Level 4.3 mmol/L (3.5-5.1) Chloride Level 113 mmol/L (98-107) Carbon Dioxide Level 31 mmol/L (21-32) Anion Gap 8 (6-14) Blood Urea Nitrogen 38 mg/dL (7-20) Creatinine 0.9 mg/dL (0.6-1.0) Estimated GFR (Cockcroft-Gault) 66.5 BUN/Creatinine Ratio 42 (6-20) Glucose Level 137 mg/dL (70-99) Calcium Level 9.0 mg/dL (8.5-10.1) Total Bilirubin 0.4 mg/dL (0.2-1.0) Aspartate Amino Transf (AST/SGOT) 35 U/L (15-37) Alanine Aminotransferase (ALT/SGPT) 30 U/L (14-59) Alkaline Phosphatase 84 U/L (46-116) Total Protein 5.6 g/dL (6.4-8.2) Albumin 1.8 g/dL (3.4-5.0) Albumin/Globulin Ratio 0.5 (1.0-1.7) Test 08/24/19 06:09 08/24/19 08:20 Glucose (Fingerstick) 128 mg/dL (70-99) Hemoglobin 6.4 g/dL (12.0-15.5) Hematocrit 20.1 % (36.0-47.0) Mean Corpuscular Hemoglobin Concent 32 g/dL (31-37) Laboratory Tests Test 08/23/19 12:18 08/23/19 18:13 08/24/19 00:09 08/24/19 06:05 Glucose (Fingerstick) 147 mg/dL (70-99) 143 mg/dL (70-99) 151 mg/dL (70-99) White Blood Count 8.8 x10^3/uL (4.0-11.0) Red Blood Count 2.30 x10^6/uL (3.50-5.40) Hemoglobin 6.8 g/dL (12.0-15.5) Hematocrit 20.9 % (36.0-47.0) Mean Corpuscular Volume 91 fL (79-100) Mean Corpuscular Hemoglobin 29 pg (25-35) Mean Corpuscular Hemoglobin Concent 32 g/dL (31-37) Red Cell Distribution Width 18.8 % (11.5-14.5) Platelet Count 416 x10^3/uL (140-400) Neutrophils (%) (Auto) 70 % (31-73) Lymphocytes (%) (Auto) 21 % (24-48) Monocytes (%) (Auto) 6 % (0-9) Eosinophils (%) (Auto) 3 % (0-3) Basophils (%) (Auto) 0 % (0-3) Neutrophils # (Auto) 6.1 x10^3/uL (1.8-7.7) Lymphocytes # (Auto) 1.9 x10^3/uL (1.0-4.8) Monocytes # (Auto) 0.5 x10^3/uL (0.0-1.1) Eosinophils # (Auto) 0.2 x10^3/uL (0.0-0.7) Basophils # (Auto) 0.0 x10^3/uL (0.0-0.2) Sodium Level 152 mmol/L (136-145) Potassium Level 4.3 mmol/L (3.5-5.1) Chloride Level 113 mmol/L (98-107) Carbon Dioxide Level 31 mmol/L (21-32) Anion Gap 8 (6-14) Blood Urea Nitrogen 38 mg/dL (7-20) Creatinine 0.9 mg/dL (0.6-1.0) Estimated GFR (Cockcroft-Gault) 66.5 BUN/Creatinine Ratio 42 (6-20) Glucose Level 137 mg/dL (70-99) Calcium Level 9.0 mg/dL (8.5-10.1) Total Bilirubin 0.4 mg/dL (0.2-1.0) Aspartate Amino Transf (AST/SGOT) 35 U/L (15-37) Alanine Aminotransferase (ALT/SGPT) 30 U/L (14-59) Alkaline Phosphatase 84 U/L (46-116) Total Protein 5.6 g/dL (6.4-8.2) Albumin 1.8 g/dL (3.4-5.0) Albumin/Globulin Ratio 0.5 (1.0-1.7) Test 08/24/19 06:09 08/24/19 08:20 Glucose (Fingerstick) 128 mg/dL (70-99) Hemoglobin 6.4 g/dL (12.0-15.5) Hematocrit 20.1 % (36.0-47.0) Mean Corpuscular Hemoglobin Concent 32 g/dL (31-37) Problem List Problems Medical Problems: (1) Acute pancreatitis Status: Acute (2) Cholelithiasis Status: Acute Assessment/Plan severe pancreatitis cont supportive care agree with rationale and plan by IR. No surgical plans currently. Pseudocyst may resolve on it's own or will tentatively plan drainage procedure with cholecystectomy in 3 months. DAVON SIMMS MD August 24, 2019 12:19
[2019-08-24] MEDS ORDERED: LIDOCAINE WITH 8.4% SOD BICARB 3 ML DISP.SYRIN. INJ ONE (12:45)
--- NOTE | 2019-08-24 13:10 | PDOC ---
SUBJECTIVE ROS stable OBJECTIVE Vital Signs Vital Signs Date Time Temp Pulse Resp B/P (MAP) Pulse Ox O2 Delivery O2 Flow Rate FiO2 08/24/19 12:05 98.8 112 36 162/71 98.8 08/24/19 12:00 99 Tracheal Collar 8.0 I & 0 Intake and Output 08/24/19 07:00 Intake Total 2812 ml Output Total 2180 ml Balance 632 ml Intake Oral 0 ml IV Total 2812 ml Output Urine Total 2110 ml Drainage Total 70 ml PHYSICAL EXAM Physical Exam GENERAL: NAD HEENT: oral cavity dry NECK: Trach/vent LUNGS: Non labored HEART: S1, S2, regular ABDOMEN: Distended, hypoactive BS, drain placement (08/14 ) : Lind (08/01) EXTREMITIES: Generalized edema, DERMATOLOGIC: Warm and dry. No generalized rash. DIAGNOSIS/ASSESSMENT Assessment & Plan ARF-- ATN,requiring CRRT and HD Off HD, renal function improved Excellent UOP, dced IV Diuretics on 08/19 currently on TPN,, avoid nephrotoxins CT 08/21-? Developing right great 2 hydronephrosis. 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 Moderate pleural effusions, may be slightly improved. Infiltrate/atelectasis in both lung bases. Ascites - post paracentesis in the past Possibly paracentesis today Acute hypoxic resp failure ,bilateral pleural effusion Trach in place, HTN COVID-19 neg, 07/13 COMMENT/RELEVANT DATA Meds Current Medications Medications (Trade) Dose Ordered Sig/Yvon Start Time Stop Time Status Last Admin Dose Admin Acetaminophen (Tylenol Supp) 650 mg PRN Q6HRS PRN 07/12/19 10:30 08/23/19 09:12 650 MG Acetaminophen (Tylenol) 650 mg PRN Q6HRS PRN 07/09/19 03:36 08/04/19 19:56 650 MG Albumin Human 200 ml @ 200 mls/hr 1X PRN PRN 08/09/19 08:00 08/09/19 13:59 DC 08/09/19 08:40 200 MLS/HR Albuterol Sulfate (Ventolin Neb Soln) 2.5 mg 1X ONCE 07/05/19 22:30 07/05/19 22:31 DC 07/06/19 00:56 2.5 MG Alteplase, Recombinant (Cathflo For Central Catheter Clearance) 1 mg 1X ONCE 08/12/19 10:45 08/12/19 10:46 DC 08/12/19 11:44 1 MG Amino Acids/ Glycerin/ Electrolytes 1,000 ml @ 75 mls/hr [id number] 08/08/19 21:15 UNV Artificial Tears (Artificial Tears) 1 drop PRN Q15MIN PRN 08/17/19 05:30 08/23/19 09:10 1 DROP Atenolol (Tenormin) 100 mg DAILY 07/05/19 09:00 07/04/19 20:08 DC Atropine Sulfate (ATROPINE 0.5mg SYRINGE) 0.5 mg PRN Q5MIN PRN 07/21/19 08:15 Benzocaine (Hurricaine One) 1 spray 1X ONCE 07/08/19 14:30 07/08/19 14:31 DC 07/08/19 16:38 1 SPRAY Bisacodyl (Dulcolax Supp) 10 mg STK-MED ONCE 08/15/19 10:59 08/15/19 10:59 DC Bumetanide (Bumex) 2 mg [id number] 08/16/19 14:00 08/20/19 14:10 DC 08/19/19 13:50 2 MG Bupivacaine HCl/ Epinephrine Bitart (Sensorcain-Epi 0.5%-1:436725 Mpf) 30 ml STK-MED ONCE 08/15/19 10:58 08/15/19 10:58 DC 08/15/19 12:01 7 ML Calcium Carbonate/ Glycine (Tums) 500 mg PRN [id number] PRN 07/06/19 17:45 Calcium Chloride 1000 mg/Sodium Chloride 110 ml @ 220 mls/hr 1X ONCE 07/05/19 22:30 07/05/19 22:59 DC 07/05/19 22:11 220 MLS/HR Calcium Chloride 3000 mg/Sodium Chloride 1,030 ml @ 50 mls/hr [id number] 07/07/19 08:00 07/09/19 15:23 DC 07/09/19 02:17 50 MLS/HR Calcium Gluconate (Calcium Gluconate) 2,000 mg 1X ONCE 07/07/19 02:15 07/07/19 02:16 DC 07/07/19 02:19 2,000 MG Calcium Gluconate 1000 mg/Sodium Chloride 110 ml @ 220 mls/hr 1X ONCE 07/06/19 03:30 07/06/19 03:59 DC 07/06/19 03:21 220 MLS/HR Calcium Gluconate 2000 mg/Sodium Chloride 120 ml @ 220 mls/hr 1X ONCE 07/06/19 07:30 07/06/19 08:02 DC 07/06/19 09:05 220 MLS/HR Cefepime HCl (Maxipime) 2 gm Q12HR 07/13/19 09:00 07/27/19 09:58 DC 07/26/19 20:56 2 GM Cellulose (Surgicel Fibrillar 1x2) 1 each STK-MED ONCE 07/25/19 11:00 07/25/19 11:01 DC Cellulose (Surgicel Hemostat 2x14) 1 each STK-MED ONCE 08/15/19 10:58 08/15/19 10:59 DC Cellulose (Surgicel Hemostat 4x8) 1 each STK-MED ONCE 08/15/19 10:58 08/15/19 10:59 DC Cyclobenzaprine HCl (Flexeril) 10 mg PRN Q6HRS PRN 08/18/19 10:45 Daptomycin 430 mg/ Sodium Chloride 50 ml @ 100 mls/hr Q24H 08/13/19 13:00 08/18/19 20:58 DC 08/18/19 13:00 100 MLS/HR Daptomycin 485 mg/ Sodium Chloride 50 ml @ 100 mls/hr Q24H 08/22/19 11:00 08/24/19 09:51 100 MLS/HR Daptomycin 500 mg/ Sodium Chloride 50 ml @ 100 mls/hr Q48H 07/13/19 08:30 07/29/19 10:07 DC 07/29/19 09:57 100 MLS/HR Dexamethasone Sodium Phosphate (Decadron) 4 mg STK-MED ONCE 08/15/19 10:56 4/27/20 10:57 DC Dexmedetomidine HCl 400 mcg/ Sodium Chloride 100 ml @ 0 mls/hr CONT PRN 07/21/19 08:15 08/24/19 08:35 16.7 MLS/HR Dextrose (Dextrose 50%-Water Syringe) 12.5 gm PRN Q15MIN PRN 07/04/19 09:30 Digoxin (Lanoxin) 125 mcg 1X ONCE 07/07/19 18:00 07/07/19 18:01 DC 07/07/19 17:10 125 MCG Diphenhydramine HCl (Benadryl) 25 mg 1X PRN PRN 08/12/19 15:45 08/13/19 15:44 DC Enoxaparin Sodium (Lovenox 100mg Syringe) 100 mg Q12HR 08/09/19 21:00 UNV Etomidate (Amidate) 8 mg 1X ONCE 07/11/19 08:30 07/11/19 08:31 DC 07/11/19 08:33 8 MG Fentanyl Citrate (Fentanyl 2ml Vial) 100 mcg STK-MED ONCE 08/15/19 10:56 08/15/19 10:57 DC Furosemide (Lasix) 40 mg 1X ONCE 08/01/19 14:30 08/01/19 14:31 DC 08/01/19 14:39 40 MG Haloperidol Lactate (Haldol Inj) 3 mg 1X ONCE 08/22/19 14:30 08/22/19 14:31 DC 08/22/19 14:37 3 MG Heparin Sodium (Porcine) (Hep Lock Adult) 500 unit STK-MED ONCE 07/26/19 09:29 07/26/19 09:30 DC Heparin Sodium (Porcine) (Heparin Sodium) 5,000 unit Q12HR 08/15/19 21:00 08/23/19 22:04 5,000 UNIT Heparin Sodium (Porcine) 1000 unit/Sodium Chloride 1,001 ml @ 1,001 mls/hr 1X ONCE 08/15/19 12:00 08/15/19 12:59 DC Hydromorphone HCl (Dilaudid Standard [employer]CH [employer]) 12 mg STK-MED ONCE 08/18/19 13:47 08/19/19 11:03 DC Hydromorphone HCl (Dilaudid) 1 mg PRN Q4HRS PRN 08/22/19 19:00 5/6/20 06:53 1 MG Info (CONTRAST GIVEN -- Rx MONITORING) 1 each PRN DAILY PRN 07/18/19 11:45 07/20/19 11:44 DC Info (Icu Electrolyte Protocol) 1 ea CONT PRN PRN 07/17/19 13:15 Info (PHARMACY MONITORING -- do not chart) 1 each PRN DAILY PRN 08/12/19 15:45 Info (Tpn Per Pharmacy) 1 each PRN DAILY PRN 07/06/19 12:30 UNV Insulin Human Lispro (HumaLOG) 0-9 UNITS Q6HRS 07/04/19 09:30 08/23/19 00:00 4 UNITS Insulin Human Regular (HumuLIN R VIAL) 5 unit 1X ONCE 07/05/19 22:30 07/05/19 22:31 DC 07/05/19 22:14 5 UNIT Iohexol (Omnipaque 240 Mg/ml) 30 ml 1X ONCE 07/18/19 11:30 07/18/19 11:33 DC 07/18/19 11:30 30 ML Iohexol (Omnipaque 300 Mg/ml) 50 ml STK-MED ONCE 08/15/19 10:58 08/15/19 10:59 DC Iohexol (Omnipaque 350 Mg/ml) 90 ml 1X ONCE 07/04/19 03:30 07/04/19 03:31 DC 07/04/19 03:25 90 ML Ketorolac Tromethamine (Toradol 30mg Vial) 30 mg 1X ONCE 07/04/19 03:00 07/04/19 03:01 DC 07/04/19 02:54 30 MG Lidocaine HCl (Buffered Lidocaine 1%) 6 ml 1X ONCE 08/24/19 12:45 08/24/19 12:46 DC 08/24/19 12:53 6 ML Lidocaine HCl (Glydo (Lidocaine) Jelly) 1 ramu 1X ONCE 07/08/19 14:30 07/08/19 14:31 DC 07/08/19 16:38 1 RAMU Lidocaine HCl (Xylocaine-Mpf 1% 2ml Vial) 2 ml PRN 1X PRN 08/15/19 07:00 08/16/19 06:59 DC Linezolid/Dextrose 300 ml @ 300 mls/hr Q12HR 07/29/19 11:00 08/09/19 08:10 DC 08/08/19 20:40 300 MLS/HR Lorazepam (Ativan Inj) 1 mg PRN Q4HRS PRN 07/07/19 09:00 08/05/19 09:19 DC 08/05/19 03:51 1 MG Magnesium Sulfate 50 ml @ 25 mls/hr 1X ONCE 08/20/19 10:30 08/20/19 12:29 DC 08/20/19 10:34 25 MLS/HR Meropenem 1 gm/ Sodium Chloride 100 ml @ 200 mls/hr Q8HRS 08/16/19 14:00 08/24/19 06:04 200 MLS/HR Meropenem 500 mg/ Sodium Chloride 50 ml @ 100 mls/hr Q12H 07/27/19 10:00 08/16/19 12:37 DC 08/16/19 10:45 100 MLS/HR Metoprolol Tartrate (Lopressor Vial) 5 mg Q6HRS 07/05/19 10:15 07/16/19 08:48 DC 07/14/19 00:12 5 MG Metronidazole 100 ml @ 100 mls/hr Q8HRS 08/02/19 10:00 08/09/19 08:10 DC 08/09/19 06:04 100 MLS/HR Micafungin Sodium 100 mg/Dextrose 100 ml @ 100 mls/hr Q24H 08/22/19 11:00 08/24/19 10:44 100 MLS/HR Midazolam HCl (Versed) 5 mg 1X ONCE 07/11/19 08:30 07/11/19 08:31 DC Midazolam HCl 100 mg/Sodium Chloride 100 ml @ 7 mls/hr CONT PRN 07/16/19 16:00 07/27/19 15:35 7 MLS/HR Midazolam HCl 50 mg/Sodium Chloride 50 ml @ 0 mls/hr CONT PRN 07/11/19 08:15 07/16/19 15:59 DC 07/14/19 22:39 7 MLS/HR Morphine Sulfate (Morphine Sulfate) 2 mg PRN Q2HR PRN 07/04/19 05:00 07/05/19 14:15 DC 07/05/19 12:26 2 MG Multi-Ingred Cream/Lotion/Oil/ Oint (Artificial Tears Eye Ointment) 1 ramu PRN Q1HR PRN 07/13/19 17:30 08/01/19 08:19 1 RAMU Naloxone HCl (Narcan) 0.4 mg PRN Q2MIN PRN 08/15/19 14:30 UNV Norepinephrine Bitartrate 8 mg/ Dextrose 258 ml @ 17.299 mls/ hr CONT PRN 07/05/19 15:30 08/05/19 09:19 DC 08/02/19 12:48 20.9 MLS/HR Ondansetron HCl (Zofran) 4 mg STK-MED ONCE 08/15/19 10:56 08/15/19 10:57 DC Pantoprazole Sodium (PROTONIX VIAL for IV PUSH) 40 mg DAILYAC 07/04/19 11:30 08/24/19 08:36 40 MG Phenylephrine HCl (PHENYLEPHRINE in 0.9% NACL PF) 1 mg STK-MED ONCE 08/15/19 12:34 08/15/19 12:34 DC Piperacillin Sod/ Tazobactam Sod 4.5 gm/Sodium Chloride 100 ml @ 200 mls/hr 1X ONCE 07/04/19 06:00 07/04/19 06:29 DC 07/04/19 05:44 200 MLS/HR Potassium Chloride 15 meq/ Bicarbonate Dialysis Soln w/ out KCl 5,007.5 ml @ 1,000 mls/ hr Q5H1M 07/17/19 20:00 07/21/19 13:08 DC 07/20/19 18:14 1,000 MLS/HR Potassium Chloride 20 meq/ Bicarbonate Dialysis Soln w/ out KCl 5,010 ml @ 1,000 mls/hr Q5H1M 07/13/19 16:00 07/17/19 19:59 DC 07/17/19 14:54 1,000 MLS/HR Potassium Chloride 75 meq/ Magnesium Sulfate 15 meq/Calcium Gluconate 8 meq/ Multivitamins 10 ml/Chromium/ Copper/Manganese/ Seleni/Zn 0.5 ml/ Insulin Human Regular 20 unit/ Total Parenteral Nutrition/Amino Acids/Dextrose/ Fat Emulsion Intravenous 1,920 ml @ 80 mls/hr TPN CONT 08/23/19 22:00 08/24/19 21:59 08/23/19 22:10 80 MLS/HR Potassium Chloride 75 meq/ Magnesium Sulfate 15 meq/Calcium Gluconate 8 meq/ Multivitamins 10 ml/Chromium/ Copper/Manganese/ Seleni/Zn 0.5 ml/ Insulin Human Regular 25 unit/ Total Parenteral Nutrition/Amino Acids/Dextrose/ Fat Emulsion Intravenous 1,920 ml @ 80 mls/hr TPN CONT 08/22/19 22:00 08/23/19 21:59 DC 08/22/19 23:08 80 MLS/HR Potassium Chloride 75 meq/ Magnesium Sulfate 20 meq/Calcium Gluconate 10 meq/ Multivitamins 10 ml/Chromium/ Copper/Manganese/ Seleni/Zn 0.5 ml/ Insulin Human Regular 25 unit/ Total Parenteral Nutrition/Amino Acids/Dextrose/ Fat Emulsion Intravenous 1,920 ml @ 80 mls/hr TPN CONT 08/21/19 22:00 08/22/19 21:59 DC 08/21/19 22:04 80 MLS/HR Potassium Chloride 75 meq/ Magnesium Sulfate 20 meq/Calcium Gluconate 10 meq/ Multivitamins 10 ml/Chromium/ Copper/Manganese/ Seleni/Zn 0.5 ml/ Insulin Human Regular 30 unit/ Total Parenteral Nutrition/Amino Acids/Dextrose/ Fat Emulsion Intravenous 1,920 ml @ 80 mls/hr TPN CONT 08/20/19 22:00 08/21/19 22:00 DC 08/20/19 21:51 80 MLS/HR Potassium Chloride/Water 100 ml @ 100 mls/hr Q1H 08/20/19 07:00 08/20/19 10:59 DC 08/20/19 13:05 100 MLS/HR Potassium Phosphate 20 mmol/ Sodium Chloride 106.6667 ml @ 51.667 m... 1X ONCE 07/13/19 13:00 07/13/19 15:03 DC 07/13/19 12:51 51.667 MLS/HR Potassium Acetate 30 meq/Magnesium Sulfate 20 meq/ Calcium Gluconate 10 meq/ Multivitamins 10 ml/Chromium/ Copper/Manganese/ Seleni/Zn 0.5 ml/ Insulin Human Regular 30 unit/ Potassium Chloride 30 meq/ Total Parenteral Nutrition/Amino Acids/Dextrose/ Fat Emulsion Intravenous 1,920 ml @ 80 mls/hr TPN CONT 08/19/19 22:00 08/20/19 21:59 DC 08/19/19 22:34 80 MLS/HR Potassium Acetate 55 meq/Magnesium Sulfate 20 meq/ Calcium Gluconate 10 meq/ Multivitamins 10 ml/Chromium/ Copper/Manganese/ Seleni/Zn 0.5 ml/ Insulin Human Regular 30 unit/ Total Parenteral Nutrition/Amino Acids/Dextrose/ Fat Emulsion Intravenous 1,920 ml @ 80 mls/hr TPN CONT 08/18/19 22:00 08/19/19 21:59 DC 08/19/19 01:00 80 MLS/HR Potassium Acetate 55 meq/Magnesium Sulfate 20 meq/ Calcium Gluconate 10 meq/ Multivitamins 10 ml/Chromium/ Copper/Manganese/ Seleni/Zn 0.5 ml/ Insulin Human Regular 35 unit/ Total Parenteral Nutrition/Amino Acids/Dextrose/ Fat Emulsion Intravenous 1,920 ml @ 80 mls/hr TPN CONT 08/16/19 22:00 08/17/19 21:59 DC 08/16/19 22:02 80 MLS/HR Potassium Acetate 65 meq/Magnesium Sulfate 20 meq/ Calcium Gluconate 10 meq/ Multivitamins 10 ml/Chromium/ Copper/Manganese/ Seleni/Zn 0.5 ml/ Insulin Human Regular 30 unit/ Total Parenteral Nutrition/Amino Acids/Dextrose/ Fat Emulsion Intravenous 1,920 ml @ 80 mls/hr TPN CONT 08/17/19 22:00 08/18/19 21:59 DC 08/17/19 22:22 80 MLS/HR Prochlorperazine Edisylate (Compazine) 5 mg PACU PRN PRN 08/15/19 07:00 08/16/19 06:59 DC Propofol 20 ml @ As Directed STK-MED ONCE 08/15/19 12:26 08/15/19 12:27 DC Ringer's Solution 1,000 ml @ 30 mls/hr Q24H 08/15/19 07:00 08/15/19 18:59 DC Rocuronium Leroy (Zemuron) 50 mg STK-MED ONCE 08/15/19 10:56 08/15/19 10:57 DC Sevoflurane (Ultane) 60 ml STK-MED ONCE 08/15/19 12:26 08/15/19 12:27 DC Sodium Bicarbonate 50 meq/Sodium Chloride 1,050 ml @ 75 mls/hr Q14H 07/06/19 07:30 07/11/19 10:28 DC 07/10/19 21:10 75 MLS/HR Sodium Acetate 50 meq/Potassium Acetate 55 meq/ Magnesium Sulfate 20 meq/Calcium Gluconate 10 meq/ Multivitamins 10 ml/Chromium/ Copper/Manganese/ Seleni/Zn 0.5 ml/ Insulin Human Regular 35 unit/ Total Parenteral Nutrition/Amino Acids/Dextrose/ Fat Emulsion Intravenous 1,800 ml @ 75 mls/hr TPN CONT 08/13/19 22:00 08/14/19 21:59 DC 08/13/19 22:03 75 MLS/HR Sodium Chloride 1,000 ml @ 25 mls/hr Q24H 08/15/19 14:30 UNV Sodium Chloride (Normal Saline Flush) 3 ml QSHIFT PRN 08/15/19 13:45 Sodium Chloride 90 meq/Calcium Gluconate 10 meq/ Multivitamins 10 ml/Chromium/ Copper/Manganese/ Seleni/Zn 0.5 ml/ Total Parenteral Nutrition/Amino Acids/Dextrose/ Fat Emulsion Intravenous 1,512 ml @ 63 mls/hr TPN CONT 07/06/19 22:00 07/07/19 21:59 DC 07/06/19 22:06 63 MLS/HR Sodium Chloride 90 meq/Calcium Gluconate 10 meq/ Multivitamins 10 ml/Chromium/ Copper/Manganese/ Seleni/Zn 1 ml/ Total Parenteral Nutrition/Amino Acids/Dextrose/ Fat Emulsion Intravenous 55.005 ml @ 2.292 mls/hr TPN CONT 07/06/19 22:00 07/06/19 12:33 DC Sodium Chloride 90 meq/Magnesium Sulfate 10 meq/ Calcium Gluconate 20 meq/ Multivitamins 10 ml/Chromium/ Copper/Manganese/ Seleni/Zn 0.5 ml/ Total Parenteral Nutrition/Amino Acids/Dextrose/ Fat Emulsion Intravenous 1,512 ml @ 63 mls/hr TPN CONT 07/07/19 22:00 07/08/19 21:59 DC 07/07/19 22:25 63 MLS/HR Sodium Chloride 90 meq/Magnesium Sulfate 12 meq/ Calcium Gluconate 15 meq/ Multivitamins 10 ml/Chromium/ Copper/Manganese/ Seleni/Zn 0.5 ml/ Insulin Human Regular 25 unit/ Total Parenteral Nutrition/Amino Acids/Dextrose/ Fat Emulsion Intravenous 1,400 ml @ 58.333 mls/ hr TPN CONT 07/27/19 22:00 07/28/19 21:59 DC 07/27/19 21:41 58.333 MLS/HR Sodium Chloride 90 meq/Potassium Chloride 15 meq/ Magnesium Sulfate 12 meq/Calcium Gluconate 15 meq/ Multivitamins 10 ml/Chromium/ Copper/Manganese/ Seleni/Zn 0.5 ml/ Insulin Human Regular 25 unit/ Total Parenteral Nutrition/Amino Acids/Dextrose/ Fat Emulsion Intravenous 1,400 ml @ 58.333 mls/ hr TPN CONT 07/26/19 22:00 07/27/19 21:59 DC 07/26/19 22:13 58.333 MLS/HR Sodium Chloride 90 meq/Potassium Chloride 15 meq/ Potassium Phosphate 10 mmol/ Magnesium Sulfate 8 meq/Calcium Gluconate 15 meq/ Multivitamins 10 ml/Chromium/ Copper/Manganese/ Seleni/Zn 0.5 ml/ Insulin Human Regular 25 unit/ Total Parenteral Nutrition/Amino Acids/Dextrose/ Fat Emulsion Intravenous 1,400 ml @ 58.333 mls/ hr TPN CONT 07/24/19 22:00 07/25/19 21:59 DC 07/24/19 21:20 58.333 MLS/HR Sodium Chloride 90 meq/Potassium Chloride 15 meq/ Potassium Phosphate 10 mmol/ Magnesium Sulfate 10 meq/Calcium Gluconate 20 meq/ Multivitamins 10 ml/Chromium/ Copper/Manganese/ Seleni/Zn 0.5 ml/ Total Parenteral Nutrition/Amino Acids/Dextrose/ Fat Emulsion Intravenous 1,400 ml @ 58.333 mls/ hr TPN CONT 07/11/19 22:00 07/12/19 21:59 DC 07/11/19 21:42 58.333 MLS/HR Sodium Chloride 90 meq/Potassium Chloride 15 meq/ Potassium Phosphate 10 mmol/ Magnesium Sulfate 12 meq/Calcium Gluconate 15 meq/ Multivitamins 10 ml/Chromium/ Copper/Manganese/ Seleni/Zn 0.5 ml/ Insulin Human Regular 25 unit/ Total Parenteral Nutrition/Amino Acids/Dextrose/ Fat Emulsion Intravenous 1,400 ml @ 58.333 mls/ hr TPN CONT 07/25/19 22:00 07/26/19 21:59 DC 07/25/19 22:24 58.333 MLS/HR Sodium Chloride 90 meq/Potassium Chloride 15 meq/ Potassium Phosphate 15 mmol/ Magnesium Sulfate 10 meq/Calcium Gluconate 15 meq/ Multivitamins 10 ml/Chromium/ Copper/Manganese/ Seleni/Zn 0.5 ml/ Total Parenteral Nutrition/Amino Acids/Dextrose/ Fat Emulsion Intravenous 1,400 ml @ 58.333 mls/ hr TPN CONT 07/12/19 22:00 07/13/19 21:59 DC 07/12/19 22:17 58.333 MLS/HR Sodium Chloride 90 meq/Potassium Chloride 15 meq/ Potassium Phosphate 15 mmol/ Magnesium Sulfate 10 meq/Calcium Gluconate 20 meq/ Multivitamins 10 ml/Chromium/ Copper/Manganese/ Seleni/Zn 0.5 ml/ Total Parenteral Nutrition/Amino Acids/Dextrose/ Fat Emulsion Intravenous 1,200 ml @ 50 mls/hr TPN CONT 07/10/19 22:00 07/10/19 14:17 DC Sodium Chloride 90 meq/Potassium Chloride 15 meq/ Potassium Phosphate 18 mmol/ Magnesium Sulfate 8 meq/Calcium Gluconate 15 meq/ Multivitamins 10 ml/Chromium/ Copper/Manganese/ Seleni/Zn 0.5 ml/ Insulin Human Regular 10 unit/ Total Parenteral Nutrition/Amino Acids/Dextrose/ Fat Emulsion Intravenous 1,400 ml @ 58.333 mls/ hr TPN CONT 07/15/19 22:00 07/16/19 21:59 DC 07/15/19 21:43 58.333 MLS/HR Sodium Chloride 90 meq/Potassium Chloride 15 meq/ Potassium Phosphate 18 mmol/ Magnesium Sulfate 8 meq/Calcium Gluconate 15 meq/ Multivitamins 10 ml/Chromium/ Copper/Manganese/ Seleni/Zn 0.5 ml/ Insulin Human Regular 15 unit/ Total Parenteral Nutrition/Amino Acids/Dextrose/ Fat Emulsion Intravenous 1,400 ml @ 58.333 mls/ hr TPN CONT 07/18/19 22:00 07/19/19 21:59 DC 07/18/19 21:47 58.333 MLS/HR Sodium Chloride 90 meq/Potassium Chloride 15 meq/ Potassium Phosphate 18 mmol/ Magnesium Sulfate 8 meq/Calcium Gluconate 15 meq/ Multivitamins 10 ml/Chromium/ Copper/Manganese/ Seleni/Zn 0.5 ml/ Insulin Human Regular 20 unit/ Total Parenteral Nutrition/Amino Acids/Dextrose/ Fat Emulsion Intravenous 1,400 ml @ 58.333 mls/ hr TPN CONT 07/21/19 22:00 07/22/19 21:59 DC 07/21/19 22:45 58.333 MLS/HR Sodium Chloride 90 meq/Potassium Chloride 15 meq/ Potassium Phosphate 18 mmol/ Magnesium Sulfate 8 meq/Calcium Gluconate 15 meq/ Multivitamins 10 ml/Chromium/ Copper/Manganese/ Seleni/Zn 0.5 ml/ Total Parenteral Nutrition/Amino Acids/Dextrose/ Fat Emulsion Intravenous 1,400 ml @ 58.333 mls/ hr TPN CONT 07/14/19 22:00 07/15/19 21:59 DC 07/14/19 22:00 58.333 MLS/HR Sodium Chloride 90 meq/Potassium Phosphate 15 mmol/ Magnesium Sulfate 12 meq/Calcium Gluconate 15 meq/ Multivitamins 10 ml/Chromium/ Copper/Manganese/ Seleni/Zn 0.5 ml/ Insulin Human Regular 30 unit/ Total Parenteral Nutrition/Amino Acids/Dextrose/ Fat Emulsion Intravenous 1,400 ml @ 58.333 mls/ hr TPN CONT 07/29/19 22:00 07/30/19 21:59 DC 07/29/19 21:49 58.333 MLS/HR Sodium Chloride 90 meq/Potassium Phosphate 15 mmol/ Magnesium Sulfate 12 meq/Calcium Gluconate 15 meq/ Multivitamins 10 ml/Chromium/ Copper/Manganese/ Seleni/Zn 0.5 ml/ Insulin Human Regular 40 unit/ Total Parenteral Nutrition/Amino Acids/Dextrose/ Fat Emulsion Intravenous 1,400 ml @ 58.333 mls/ hr TPN CONT 07/30/19 22:00 07/31/19 21:59 DC 07/30/19 21:21 58.333 MLS/HR Sodium Chloride 90 meq/Potassium Phosphate 19 mmol/ Magnesium Sulfate 12 meq/Calcium Gluconate 15 meq/ Multivitamins 10 ml/Chromium/ Copper/Manganese/ Seleni/Zn 0.5 ml/ Insulin Human Regular 40 unit/ Total Parenteral Nutrition/Amino Acids/Dextrose/ Fat Emulsion Intravenous 1,400 ml @ 58.333 mls/ hr TPN CONT 07/31/19 22:00 08/01/19 21:59 DC 07/31/19 21:54 58.333 MLS/HR Sodium Chloride 90 meq/Potassium Phosphate 5 mmol/ Magnesium Sulfate 12 meq/Calcium Gluconate 15 meq/ Multivitamins 10 ml/Chromium/ Copper/Manganese/ Seleni/Zn 0.5 ml/ Insulin Human Regular 30 unit/ Total Parenteral Nutrition/Amino Acids/Dextrose/ Fat Emulsion Intravenous 1,400 ml @ 58.333 mls/ hr TPN CONT 07/28/19 22:00 07/29/19 21:59 DC 07/28/19 22:08 58.333 MLS/HR Sodium Chloride 100 meq/Potassium Chloride 40 meq/ Magnesium Sulfate 15 meq/Calcium Gluconate 15 meq/ Multivitamins 10 ml/Chromium/ Copper/Manganese/ Seleni/Zn 0.5 ml/ Insulin Human Regular 35 unit/ Total Parenteral Nutrition/Amino Acids/Dextrose/ Fat Emulsion Intravenous 1,400 ml @ 58.333 mls/ hr TPN CONT 08/07/19 22:00 08/08/19 21:59 DC 08/07/19 22:46 58.333 MLS/HR Sodium Chloride 100 meq/Potassium Chloride 40 meq/ Magnesium Sulfate 20 meq/Calcium Gluconate 10 meq/ Multivitamins 10 ml/Chromium/ Copper/Manganese/ Seleni/Zn 0.5 ml/ Insulin Human Regular 35 unit/ Total Parenteral Nutrition/Amino Acids/Dextrose/ Fat Emulsion Intravenous 1,400 ml @ 58.333 mls/ hr TPN CONT 08/11/19 22:00 08/12/19 21:59 DC 08/12/19 00:06 58.333 MLS/HR Sodium Chloride 100 meq/Potassium Chloride 40 meq/ Magnesium Sulfate 20 meq/Calcium Gluconate 15 meq/ Multivitamins 10 ml/Chromium/ Copper/Manganese/ Seleni/Zn 0.5 ml/ Insulin Human Regular 35 unit/ Total Parenteral Nutrition/Amino Acids/Dextrose/ Fat Emulsion Intravenous 1,400 ml @ 58.333 mls/ hr TPN CONT 08/10/19 22:00 08/11/19 21:59 DC 08/10/19 22:27 58.333 MLS/HR Sodium Chloride 100 meq/Potassium Phosphate 10 mmol/ Magnesium Sulfate 12 meq/Calcium Gluconate 15 meq/ Multivitamins 10 ml/Chromium/ Copper/Manganese/ Seleni/Zn 0.5 ml/ Insulin Human Regular 35 unit/ Potassium Chloride 20 meq/ Total Parenteral Nutrition/Amino Acids/Dextrose/ Fat Emulsion Intravenous 1,400 ml @ 58.333 mls/ hr TPN CONT 08/04/19 22:00 08/05/19 21:59 DC 08/04/19 22:10 58.333 MLS/HR Sodium Chloride 100 meq/Potassium Phosphate 19 mmol/ Magnesium Sulfate 12 meq/Calcium Gluconate 15 meq/ Multivitamins 10 ml/Chromium/ Copper/Manganese/ Seleni/Zn 0.5 ml/ Insulin Human Regular 40 unit/ Potassium Chloride 20 meq/ Total Parenteral Nutrition/Amino Acids/Dextrose/ Fat Emulsion Intravenous 1,400 ml @ 58.333 mls/ hr TPN CONT 08/03/19 22:00 08/04/19 21:59 DC 08/03/19 21:20 58.333 MLS/HR Sodium Chloride 100 meq/Potassium Phosphate 5 mmol/ Magnesium Sulfate 12 meq/Calcium Gluconate 15 meq/ Multivitamins 10 ml/Chromium/ Copper/Manganese/ Seleni/Zn 0.5 ml/ Insulin Human Regular 35 unit/ Potassium Chloride 20 meq/ Total Parenteral Nutrition/Amino Acids/Dextrose/ Fat Emulsion Intravenous 1,400 ml @ 58.333 mls/ hr TPN CONT 08/05/19 22:00 08/06/19 21:59 DC 08/05/19 22:59 58.333 MLS/HR Succinylcholine Chloride (Anectine) 120 mg 1X ONCE 07/11/19 08:30 07/11/19 08:31 DC 07/11/19 08:34 120 MG Lab Laboratory Tests Test 08/23/19 18:13 08/24/19 00:09 08/24/19 06:05 08/24/19 06:09 Glucose (Fingerstick) 143 mg/dL (70-99) 151 mg/dL (70-99) 128 mg/dL (70-99) White Blood Count 8.8 x10^3/uL (4.0-11.0) Red Blood Count 2.30 x10^6/uL (3.50-5.40) Hemoglobin 6.8 g/dL (12.0-15.5) Hematocrit 20.9 % (36.0-47.0) Mean Corpuscular Volume 91 fL (79-100) Mean Corpuscular Hemoglobin 29 pg (25-35) Mean Corpuscular Hemoglobin Concent 32 g/dL (31-37) Red Cell Distribution Width 18.8 % (11.5-14.5) Platelet Count 416 x10^3/uL (140-400) Neutrophils (%) (Auto) 70 % (31-73) Lymphocytes (%) (Auto) 21 % (24-48) Monocytes (%) (Auto) 6 % (0-9) Eosinophils (%) (Auto) 3 % (0-3) Basophils (%) (Auto) 0 % (0-3) Neutrophils # (Auto) 6.1 x10^3/uL (1.8-7.7) Lymphocytes # (Auto) 1.9 x10^3/uL (1.0-4.8) Monocytes # (Auto) 0.5 x10^3/uL (0.0-1.1) Eosinophils # (Auto) 0.2 x10^3/uL (0.0-0.7) Basophils # (Auto) 0.0 x10^3/uL (0.0-0.2) Sodium Level 152 mmol/L (136-145) Potassium Level 4.3 mmol/L (3.5-5.1) Chloride Level 113 mmol/L (98-107) Carbon Dioxide Level 31 mmol/L (21-32) Anion Gap 8 (6-14) Blood Urea Nitrogen 38 mg/dL (7-20) Creatinine 0.9 mg/dL (0.6-1.0) Estimated GFR (Cockcroft-Gault) 66.5 BUN/Creatinine Ratio 42 (6-20) Glucose Level 137 mg/dL (70-99) Calcium Level 9.0 mg/dL (8.5-10.1) Total Bilirubin 0.4 mg/dL (0.2-1.0) Aspartate Amino Transf (AST/SGOT) 35 U/L (15-37) Alanine Aminotransferase (ALT/SGPT) 30 U/L (14-59) Alkaline Phosphatase 84 U/L (46-116) Total Protein 5.6 g/dL (6.4-8.2) Albumin 1.8 g/dL (3.4-5.0) Albumin/Globulin Ratio 0.5 (1.0-1.7) Test 08/24/19 08:20 08/24/19 13:00 Hemoglobin 6.4 g/dL (12.0-15.5) Hematocrit 20.1 % (36.0-47.0) Mean Corpuscular Hemoglobin Concent 32 g/dL (31-37) Glucose (Fingerstick) 156 mg/dL (70-99) Results All relevant outside records, renal labs, imaging studies, telemetry/EKG's were reviewed. VERENA KENT MD August 24, 2019 13:10
--- NOTE | 2019-08-24 13:30 | NUR ---
SS following up with discharge planning. SS reviewed pt chart and discussed with pt RN. Pt hemoglobin low today and pt getting unit of blood. Pt had paracentesis today and fluid from paracentesis being sent out for cultures. Pt has had some issues with fevers and is currently on Dapto, Micafungin, and Meropenem. Pt is NPO until she can tolerate speaking valve. Pt having good urine output. Pt currently on TPN. HCFS meeting with pt's daughters tomorrow to complete disability packet. SS will continue to follow for discharge planning.
[2019-08-24] MEDS: TPN PER PHARMACY MC PRN (13:45)
--- NOTE | 2019-08-24 13:48 | NUR ---
Pharmacy TPN Dosing Note S: SCOTT AVILA is a 48 year old F Currently receiving Central Continuous TPN started 07/06/19 B:Pertinent PMH: Necrotizing pancreatitis Height: 5 feet, 8 inches Weight: 101.9 kg Current diet: NPO LABS: Sodium: 152 Potassium: 4.3 Chloride: 113 Calcium: 9.0 Corrected Calcium: 10.76 Magnesium: 2 CO2: 31 SCr: 0.9 Glucose: 128-156 Albumin: 1.8 AST: 35 ALT: 30 TPN FORMULA: TPN TYPE: Central Continuous AMINO ACIDS: 90 gm DEXTROSE: 225 gm LIPIDS: 30 gm POTASSIUM CHLORIDE: 75 mEq MAGNESIUM: 15 mEq CALCIUM: 8 mEq INSULIN: 20 units MULTIPLE VITAMIN: 10 ml TRACE ELEMENTS: 0.5 ml(s) TPN PLAN: Continue same. R: Continue TPN Will monitor electrolytes, glucose, and tolerance to TPN. Raeann Mcdonnell Katya, 08/24/19 [id number]
[2019-08-24] MEDS: IV NORMAL SALINE 1000ML BAG 1,000 ML IV SCH (13:59)
--- NOTE | 2019-08-24 14:56 | PDOC ---
PULMONARY PROGRESS NOTES Subjective Patient intubated on 07/10 , s/p trach 07/24, awake alert follows commands Vitals Vital Signs Date Time Temp Pulse Resp B/P (MAP) Pulse Ox O2 Delivery O2 Flow Rate FiO2 08/24/19 14:01 98.4 90 27 109/52 98.4 08/24/19 14:00 96 Ventilator 08/24/19 13:14 8.0 ROS: No Nausea, No Chest Pain, No Abdominal Pain, No Increase Cough General: Alert, No acute distress HEENT: Other (nc at perrl nose clear nech trach site ok no lad no th yromegaly) Lungs: Crackles Cardiovascular: S1, S2 Abdomen: Soft, Non-tender, Other (firm) Neuro Exam: Alert Extremities: Other (+3 generalized edema ) Skin: Warm, Dry Labs Laboratory Tests Test 08/22/19 18:17 08/23/19 00:21 08/23/19 06:35 08/23/19 06:38 Glucose (Fingerstick) 145 mg/dL (70-99) 153 mg/dL (70-99) 102 mg/dL (70-99) White Blood Count 7.3 x10^3/uL (4.0-11.0) Red Blood Count 2.55 x10^6/uL (3.50-5.40) Hemoglobin 7.3 g/dL (12.0-15.5) Hematocrit 23.2 % (36.0-47.0) Mean Corpuscular Volume 91 fL (79-100) Mean Corpuscular Hemoglobin 29 pg (25-35) Mean Corpuscular Hemoglobin Concent 32 g/dL (31-37) Red Cell Distribution Width 18.5 % (11.5-14.5) Platelet Count 370 x10^3/uL (140-400) Neutrophils (%) (Auto) 75 % (31-73) Lymphocytes (%) (Auto) 17 % (24-48) Monocytes (%) (Auto) 5 % (0-9) Eosinophils (%) (Auto) 3 % (0-3) Basophils (%) (Auto) 1 % (0-3) Neutrophils # (Auto) 5.5 x10^3/uL (1.8-7.7) Lymphocytes # (Auto) 1.2 x10^3/uL (1.0-4.8) Monocytes # (Auto) 0.4 x10^3/uL (0.0-1.1) Eosinophils # (Auto) 0.2 x10^3/uL (0.0-0.7) Basophils # (Auto) 0.0 x10^3/uL (0.0-0.2) Sodium Level 153 mmol/L (136-145) Potassium Level 4.1 mmol/L (3.5-5.1) Chloride Level 114 mmol/L (98-107) Carbon Dioxide Level 33 mmol/L (21-32) Anion Gap 6 (6-14) Blood Urea Nitrogen 41 mg/dL (7-20) Creatinine 0.9 mg/dL (0.6-1.0) Estimated GFR (Cockcroft-Gault) 66.5 Glucose Level 104 mg/dL (70-99) Calcium Level 8.6 mg/dL (8.5-10.1) Phosphorus Level 3.2 mg/dL (2.6-4.7) Magnesium Level 2.0 mg/dL (1.8-2.4) Test 08/23/19 12:18 08/23/19 18:13 08/24/19 00:09 08/24/19 06:05 Glucose (Fingerstick) 147 mg/dL (70-99) 143 mg/dL (70-99) 151 mg/dL (70-99) White Blood Count 8.8 x10^3/uL (4.0-11.0) Red Blood Count 2.30 x10^6/uL (3.50-5.40) Hemoglobin 6.8 g/dL (12.0-15.5) Hematocrit 20.9 % (36.0-47.0) Mean Corpuscular Volume 91 fL (79-100) Mean Corpuscular Hemoglobin 29 pg (25-35) Mean Corpuscular Hemoglobin Concent 32 g/dL (31-37) Red Cell Distribution Width 18.8 % (11.5-14.5) Platelet Count 416 x10^3/uL (140-400) Neutrophils (%) (Auto) 70 % (31-73) Lymphocytes (%) (Auto) 21 % (24-48) Monocytes (%) (Auto) 6 % (0-9) Eosinophils (%) (Auto) 3 % (0-3) Basophils (%) (Auto) 0 % (0-3) Neutrophils # (Auto) 6.1 x10^3/uL (1.8-7.7) Lymphocytes # (Auto) 1.9 x10^3/uL (1.0-4.8) Monocytes # (Auto) 0.5 x10^3/uL (0.0-1.1) Eosinophils # (Auto) 0.2 x10^3/uL (0.0-0.7) Basophils # (Auto) 0.0 x10^3/uL (0.0-0.2) Sodium Level 152 mmol/L (136-145) Potassium Level 4.3 mmol/L (3.5-5.1) Chloride Level 113 mmol/L (98-107) Carbon Dioxide Level 31 mmol/L (21-32) Anion Gap 8 (6-14) Blood Urea Nitrogen 38 mg/dL (7-20) Creatinine 0.9 mg/dL (0.6-1.0) Estimated GFR (Cockcroft-Gault) 66.5 BUN/Creatinine Ratio 42 (6-20) Glucose Level 137 mg/dL (70-99) Calcium Level 9.0 mg/dL (8.5-10.1) Total Bilirubin 0.4 mg/dL (0.2-1.0) Aspartate Amino Transf (AST/SGOT) 35 U/L (15-37) Alanine Aminotransferase (ALT/SGPT) 30 U/L (14-59) Alkaline Phosphatase 84 U/L (46-116) Total Protein 5.6 g/dL (6.4-8.2) Albumin 1.8 g/dL (3.4-5.0) Albumin/Globulin Ratio 0.5 (1.0-1.7) Test 08/24/19 06:09 08/24/19 08:20 08/24/19 13:00 Glucose (Fingerstick) 128 mg/dL (70-99) 156 mg/dL (70-99) Hemoglobin 6.4 g/dL (12.0-15.5) Hematocrit 20.1 % (36.0-47.0) Mean Corpuscular Hemoglobin Concent 32 g/dL (31-37) Laboratory Tests Test 08/23/19 18:13 08/24/19 00:09 08/24/19 06:05 08/24/19 06:09 Glucose (Fingerstick) 143 mg/dL (70-99) 151 mg/dL (70-99) 128 mg/dL (70-99) White Blood Count 8.8 x10^3/uL (4.0-11.0) Red Blood Count 2.30 x10^6/uL (3.50-5.40) Hemoglobin 6.8 g/dL (12.0-15.5) Hematocrit 20.9 % (36.0-47.0) Mean Corpuscular Volume 91 fL (79-100) Mean Corpuscular Hemoglobin 29 pg (25-35) Mean Corpuscular Hemoglobin Concent 32 g/dL (31-37) Red Cell Distribution Width 18.8 % (11.5-14.5) Platelet Count 416 x10^3/uL (140-400) Neutrophils (%) (Auto) 70 % (31-73) Lymphocytes (%) (Auto) 21 % (24-48) Monocytes (%) (Auto) 6 % (0-9) Eosinophils (%) (Auto) 3 % (0-3) Basophils (%) (Auto) 0 % (0-3) Neutrophils # (Auto) 6.1 x10^3/uL (1.8-7.7) Lymphocytes # (Auto) 1.9 x10^3/uL (1.0-4.8) Monocytes # (Auto) 0.5 x10^3/uL (0.0-1.1) Eosinophils # (Auto) 0.2 x10^3/uL (0.0-0.7) Basophils # (Auto) 0.0 x10^3/uL (0.0-0.2) Sodium Level 152 mmol/L (136-145) Potassium Level 4.3 mmol/L (3.5-5.1) Chloride Level 113 mmol/L (98-107) Carbon Dioxide Level 31 mmol/L (21-32) Anion Gap 8 (6-14) Blood Urea Nitrogen 38 mg/dL (7-20) Creatinine 0.9 mg/dL (0.6-1.0) Estimated GFR (Cockcroft-Gault) 66.5 BUN/Creatinine Ratio 42 (6-20) Glucose Level 137 mg/dL (70-99) Calcium Level 9.0 mg/dL (8.5-10.1) Total Bilirubin 0.4 mg/dL (0.2-1.0) Aspartate Amino Transf (AST/SGOT) 35 U/L (15-37) Alanine Aminotransferase (ALT/SGPT) 30 U/L (14-59) Alkaline Phosphatase 84 U/L (46-116) Total Protein 5.6 g/dL (6.4-8.2) Albumin 1.8 g/dL (3.4-5.0) Albumin/Globulin Ratio 0.5 (1.0-1.7) Test 08/24/19 08:20 08/24/19 13:00 Hemoglobin 6.4 g/dL (12.0-15.5) Hematocrit 20.1 % (36.0-47.0) Mean Corpuscular Hemoglobin Concent 32 g/dL (31-37) Glucose (Fingerstick) 156 mg/dL (70-99) Medications Active Scripts Medications Dose Route/Sig Max Daily Dose Days Date Category Bisoprolol Fumarate 5 Mg Tablet 10 Mg PO DAILY 07/04/19 Reported Impression . IMPRESSION: 1. Acute hypoxemic respiratory failure secondary to ARDS status post trach, 2. Gallstone pancreatitis 3. Severe metabolic acidosis.stable 4. Acute kidney injury-stable, ON HD-- continue to improve 5. Acute gallstone pancreatitis. 6. Hypoalbuminemia. 7. Moderate persistent effusions 8. Fever- Per ID, per surgery 9. Chronic anemia 10. Covid 19 testing negative 11. Moderate to large ascites-S/P paracentisis 12.S/P paracentisis with 4 liters removed on 08/03/19 Surgery note Operative Note: After obtaining informed consent, patient was taken to OR, induced under GETA and prepped in the usual fashion. 5 mm port placed umbilical and right mid abdomen, all under laparoscopic guidance. Large amount of ascites encountered and aspirated off. Fluid was clear with some whitish debris. Viscera was completely locked in with obliteration of all planes, preventing any significant exploration. Copious irrigation. Given patient's overall clinical improvement, favor against open procedure and attempt at cholecystectomy and/or necrosectomy, given high risk of complicat ions. Cholecystectomy will need to be performed, but favor waiting 3 months. 19 KAYLIN drain placed and secured with 3 0 nylon. Skin repaired with 4 0 monocryl. Dressing placed. Patient tolerated procedure well and sent to PACU in stable condition. All c ounts correct. Wound class is 4. Plan . Patient scheduled to undergo paracentesis today Trach shield precedex for anxiety, prn, avoid excessive sedation Follow surgery input Follow ID rec, abx per id Follow nephrology recs Nutritional support per surgery: continue TPN for nutrition DVT/GI PPX : heparin Sq/ protonix d/w RN/RT CODE:FULL HARMEET BEE MD August 24, 2019 14:55
--- NOTE | 2019-08-24 15:38 | PDOC ---
PROGRESS NOTES Chief Complaint Chief Complaint Acute hypoxic Respiratory failure requiring mechanical ventilation (on vent since 07/10) Tracheostomy bilateral pleural effusions/pulm edema Sepsis Severe Acute gallstone pancreatitis (not a surgical candidate at this time) with necrosis Acute kidney failure now requiring dialysis Salpingitis Gallstones (Calculus of gallbladder with acute cholecystitis without obstruction) HTN Leukocytosis Hypoxia Uterine fibroid Intractable pain Intractable nausea Covid 19 negative. Acute on chronic anemia EEG: No seizure activity ESRD on HD Hyperglycemia Plan: Continue with supportive measures No surgical plans as of yet We will continue to follow History of Present Illness History of Present Illness Ms Diaz is a 48yo F w/ PMHx HTN, prediabetes who presented to the emergency room with complaints of abdominal pain on 07/04/2019. Found with Lipase 41671, AST 401, ALT 249, Bilirubin 1.4. CT abdomen confirms pancreatic inflammation, peripancreatic fluid and inflammatory changes around the pancreas consistent with pancreatitis. Cholelithiasis and 1.4cm uterine fibroid as well as possible left salpingitis. Admitted for further care GI, General surgery, ID, Pulm consulted. 07/04: PICC placed per IR. Renal US negative. Started on levophed. Repeat CT abdomen w/ necrosis; 07/05: Dialysis catheter per nephrology; 07/06: On BiPAP; 07/07: BiPAP, dialysis; 07/08: Overnight Tmax 101.7 , still on BiPAP FiO2 40%, sti ll on low dose Levophed gtt, TPN initiated. On dialysis 07/24: Tracheostomy; 07/30: S/p tracheostomy on vent spontaneous respirations with 5 of pressure support 35% FiO2, rectal tube and a Lind, off pressors; 08/01:Still on vent via trach. Removed PICC and CVC LIJ and replaced. CT chest/abd/pelvis with bilateral pleural effusion and ascites. 08/02: Renal function stable. Still on vent. More interactive today. Miming wish for food. Plan discussed for thoracentesis/paracentesis with daughters today. They were under impression patient was doing worse due to a miscommunication which has been clarified over the phone. 4.3L removed. 08/04: Febrile overnight 101.8F. More interactive, still on vent. Asking for ice by miming; 08/05: Afebrile overnight. TMax last 24 hours 100.6F. Hb 7.1. Interactive when awake. 08/09: Transfusion 1u PRBC (6U total since admit) 08/10-08/13: TPN and precedex, vent. 08/14: Tmax 101F overnight. Hb 8.2. HD cath out since 08/11. Alert. On vent SIMV 35% FiO2. Surgery: ex-lap, no ronel or pancreatic necrosectomy 2/2 profound inflammation. 08/15: Seen POD #1. Afebrile overnight. BUN 62. CBC WNL today.Remains on vent via trach, TPN. Able to point today and indicate she wishes her daughters and Jamaal to be involved in her care. 08/16: Hb 7.4, Na 151. Remains on vent via trach, TPN. off HD for now. Not tolerating trach shield well. 08/17: Negative US for UE DVT. More relaxed today. Has some increase in UOP. Tolerating vent well. She is requesting to eat and drink via writing. T max 100F 24 hours ago, but 101F at 1200. Right PICC placed. Speaking valve for half the day in [facility] 08/18: Na 153 today. Good UOP. Tmax 101F at 1200 on 08/17. She becomes a bit anxious and did not sleep much last night, wishes to try to sleep this morning 08/19: Able to speak well with speaking valve today. Na 153, K2.9, Mg 1.8, Cr 1. 100.4F axillary temp overnight. Asking for food. 08/20: Afebrile overnight. ABG with pH 7.27/75/123. Hb 7.1. Na 153. RESEARCH & ANALYTICS MANAGER settings decreased 08/21: No acute events reported overnight, case discussed with nursing staff patient in no acute distress no complaints during my visit 08/22: Patient responding to verbal stimuli. She is saturating well and not requiring ventilation support, no acute events reported overnight seems to be slowly improving 08/23: Patient requiring transfusion of packed red blood cells due to anemia, no evidence of acute bleeding, appreciate GI medical sales consultant recommendations Plan: Transfuse 1 unit of packed red blood cells Encourage activity as tolerated Trach shield and speaking valve during day when awake. Would recommend ABG after 4 hours to r/o CO2 retention, however and still vent overnight Monitor fever curve, no obvious source of infection, possibly some aspiration events, atelectasis Vitals Vitals Vital Signs Date Time Temp Pulse Resp B/P (MAP) Pulse Ox O2 Delivery O2 Flow Rate FiO2 08/24/19 15:00 92 29 110/65 (80) 99 Ventilator 08/24/19 14:01 98.4 98.4 08/24/19 13:14 8.0 Physical Exam Physical Exam GENERAL: Propped up in bed, Alert. weak appearing but not toxic. slight better HEENT: Pupils equal, + NGT, oral cavity dry NECK: Trach/vent LUNGS: rhonchi HEART: S1, S2, regular ABDOMEN: Distended, hypoactive BS, drain placement (08/14 - serous fluid) : Lind (08/01) EXTREMITIES: Generalized edema, no cyanosis, SCDs bilaterally DERMATOLOGIC: Warm and dry. No generalized rash. CENTRAL NERVOUS SYSTEM: weak, mouthing words to simple questions PICC line in place August 18, 2019 clean HDC has been removed LIJ removed General: No acute distress Heart: Regular rate, No murmurs Lungs: Crackles Abdomen: Soft, Other (mild TTP, drain with serous output) Extremities: No edema Skin: Other (mottling noted to extremities ) Labs LABS Laboratory Tests Test 08/23/19 18:13 08/24/19 00:09 08/24/19 06:05 08/24/19 06:09 Glucose (Fingerstick) 143 mg/dL (70-99) 151 mg/dL (70-99) 128 mg/dL (70-99) White Blood Count 8.8 x10^3/uL (4.0-11.0) Red Blood Count 2.30 x10^6/uL (3.50-5.40) Hemoglobin 6.8 g/dL (12.0-15.5) Hematocrit 20.9 % (36.0-47.0) Mean Corpuscular Volume 91 fL (79-100) Mean Corpuscular Hemoglobin 29 pg (25-35) Mean Corpuscular Hemoglobin Concent 32 g/dL (31-37) Red Cell Distribution Width 18.8 % (11.5-14.5) Platelet Count 416 x10^3/uL (140-400) Neutrophils (%) (Auto) 70 % (31-73) Lymphocytes (%) (Auto) 21 % (24-48) Monocytes (%) (Auto) 6 % (0-9) Eosinophils (%) (Auto) 3 % (0-3) Basophils (%) (Auto) 0 % (0-3) Neutrophils # (Auto) 6.1 x10^3/uL (1.8-7.7) Lymphocytes # (Auto) 1.9 x10^3/uL (1.0-4.8) Monocytes # (Auto) 0.5 x10^3/uL (0.0-1.1) Eosinophils # (Auto) 0.2 x10^3/uL (0.0-0.7) Basophils # (Auto) 0.0 x10^3/uL (0.0-0.2) Sodium Level 152 mmol/L (136-145) Potassium Level 4.3 mmol/L (3.5-5.1) Chloride Level 113 mmol/L (98-107) Carbon Dioxide Level 31 mmol/L (21-32) Anion Gap 8 (6-14) Blood Urea Nitrogen 38 mg/dL (7-20) Creatinine 0.9 mg/dL (0.6-1.0) Estimated GFR (Cockcroft-Gault) 66.5 BUN/Creatinine Ratio 42 (6-20) Glucose Level 137 mg/dL (70-99) Calcium Level 9.0 mg/dL (8.5-10.1) Total Bilirubin 0.4 mg/dL (0.2-1.0) Aspartate Amino Transf (AST/SGOT) 35 U/L (15-37) Alanine Aminotransferase (ALT/SGPT) 30 U/L (14-59) Alkaline Phosphatase 84 U/L (46-116) Total Protein 5.6 g/dL (6.4-8.2) Albumin 1.8 g/dL (3.4-5.0) Albumin/Globulin Ratio 0.5 (1.0-1.7) Test 08/24/19 08:20 08/24/19 13:00 Hemoglobin 6.4 g/dL (12.0-15.5) Hematocrit 20.1 % (36.0-47.0) Mean Corpuscular Hemoglobin Concent 32 g/dL (31-37) Glucose (Fingerstick) 156 mg/dL (70-99) Assessment and Plan Assessmemt and Plan Problems Medical Problems: (1) Acute pancreatitis Status: Acute (2) Cholelithiasis Status: Acute Comment Review of Relevant I have reviewed the following items kolby (where applicable) has been applied. Labs Laboratory Tests Test 08/22/19 18:17 08/23/19 00:21 08/23/19 06:35 08/23/19 06:38 Glucose (Fingerstick) 145 mg/dL (70-99) 153 mg/dL (70-99) 102 mg/dL (70-99) White Blood Count 7.3 x10^3/uL (4.0-11.0) Red Blood Count 2.55 x10^6/uL (3.50-5.40) Hemoglobin 7.3 g/dL (12.0-15.5) Hematocrit 23.2 % (36.0-47.0) Mean Corpuscular Volume 91 fL (79-100) Mean Corpuscular Hemoglobin 29 pg (25-35) Mean Corpuscular Hemoglobin Concent 32 g/dL (31-37) Red Cell Distribution Width 18.5 % (11.5-14.5) Platelet Count 370 x10^3/uL (140-400) Neutrophils (%) (Auto) 75 % (31-73) Lymphocytes (%) (Auto) 17 % (24-48) Monocytes (%) (Auto) 5 % (0-9) Eosinophils (%) (Auto) 3 % (0-3) Basophils (%) (Auto) 1 % (0-3) Neutrophils # (Auto) 5.5 x10^3/uL (1.8-7.7) Lymphocytes # (Auto) 1.2 x10^3/uL (1.0-4.8) Monocytes # (Auto) 0.4 x10^3/uL (0.0-1.1) Eosinophils # (Auto) 0.2 x10^3/uL (0.0-0.7) Basophils # (Auto) 0.0 x10^3/uL (0.0-0.2) Sodium Level 153 mmol/L (136-145) Potassium Level 4.1 mmol/L (3.5-5.1) Chloride Level 114 mmol/L (98-107) Carbon Dioxide Level 33 mmol/L (21-32) Anion Gap 6 (6-14) Blood Urea Nitrogen 41 mg/dL (7-20) Creatinine 0.9 mg/dL (0.6-1.0) Estimated GFR (Cockcroft-Gault) 66.5 Glucose Level 104 mg/dL (70-99) Calcium Level 8.6 mg/dL (8.5-10.1) Phosphorus Level 3.2 mg/dL (2.6-4.7) Magnesium Level 2.0 mg/dL (1.8-2.4) Test 08/23/19 12:18 08/23/19 18:13 08/24/19 00:09 08/24/19 06:05 Glucose (Fingerstick) 147 mg/dL (70-99) 143 mg/dL (70-99) 151 mg/dL (70-99) White Blood Count 8.8 x10^3/uL (4.0-11.0) Red Blood Count 2.30 x10^6/uL (3.50-5.40) Hemoglobin 6.8 g/dL (12.0-15.5) Hematocrit 20.9 % (36.0-47.0) Mean Corpuscular Volume 91 fL (79-100) Mean Corpuscular Hemoglobin 29 pg (25-35) Mean Corpuscular Hemoglobin Concent 32 g/dL (31-37) Red Cell Distribution Width 18.8 % (11.5-14.5) Platelet Count 416 x10^3/uL (140-400) Neutrophils (%) (Auto) 70 % (31-73) Lymphocytes (%) (Auto) 21 % (24-48) Monocytes (%) (Auto) 6 % (0-9) Eosinophils (%) (Auto) 3 % (0-3) Basophils (%) (Auto) 0 % (0-3) Neutrophils # (Auto) 6.1 x10^3/uL (1.8-7.7) Lymphocytes # (Auto) 1.9 x10^3/uL (1.0-4.8) Monocytes # (Auto) 0.5 x10^3/uL (0.0-1.1) Eosinophils # (Auto) 0.2 x10^3/uL (0.0-0.7) Basophils # (Auto) 0.0 x10^3/uL (0.0-0.2) Sodium Level 152 mmol/L (136-145) Potassium Level 4.3 mmol/L (3.5-5.1) Chloride Level 113 mmol/L (98-107) Carbon Dioxide Level 31 mmol/L (21-32) Anion Gap 8 (6-14) Blood Urea Nitrogen 38 mg/dL (7-20) Creatinine 0.9 mg/dL (0.6-1.0) Estimated GFR (Cockcroft-Gault) 66.5 BUN/Creatinine Ratio 42 (6-20) Glucose Level 137 mg/dL (70-99) Calcium Level 9.0 mg/dL (8.5-10.1) Total Bilirubin 0.4 mg/dL (0.2-1.0) Aspartate Amino Transf (AST/SGOT) 35 U/L (15-37) Alanine Aminotransferase (ALT/SGPT) 30 U/L (14-59) Alkaline Phosphatase 84 U/L (46-116) Total Protein 5.6 g/dL (6.4-8.2) Albumin 1.8 g/dL (3.4-5.0) Albumin/Globulin Ratio 0.5 (1.0-1.7) Test 08/24/19 06:09 08/24/19 08:20 08/24/19 13:00 Glucose (Fingerstick) 128 mg/dL (70-99) 156 mg/dL (70-99) Hemoglobin 6.4 g/dL (12.0-15.5) Hematocrit 20.1 % (36.0-47.0) Mean Corpuscular Hemoglobin Concent 32 g/dL (31-37) Laboratory Tests Test 08/23/19 18:13 08/24/19 00:09 08/24/19 06:05 08/24/19 06:09 Glucose (Fingerstick) 143 mg/dL (70-99) 151 mg/dL (70-99) 128 mg/dL (70-99) White Blood Count 8.8 x10^3/uL (4.0-11.0) Red Blood Count 2.30 x10^6/uL (3.50-5.40) Hemoglobin 6.8 g/dL (12.0-15.5) Hematocrit 20.9 % (36.0-47.0) Mean Corpuscular Volume 91 fL (79-100) Mean Corpuscular Hemoglobin 29 pg (25-35) Mean Corpuscular Hemoglobin Concent 32 g/dL (31-37) Red Cell Distribution Width 18.8 % (11.5-14.5) Platelet Count 416 x10^3/uL (140-400) Neutrophils (%) (Auto) 70 % (31-73) Lymphocytes (%) (Auto) 21 % (24-48) Monocytes (%) (Auto) 6 % (0-9) Eosinophils (%) (Auto) 3 % (0-3) Basophils (%) (Auto) 0 % (0-3) Neutrophils # (Auto) 6.1 x10^3/uL (1.8-7.7) Lymphocytes # (Auto) 1.9 x10^3/uL (1.0-4.8) Monocytes # (Auto) 0.5 x10^3/uL (0.0-1.1) Eosinophils # (Auto) 0.2 x10^3/uL (0.0-0.7) Basophils # (Auto) 0.0 x10^3/uL (0.0-0.2) Sodium Level 152 mmol/L (136-145) Potassium Level 4.3 mmol/L (3.5-5.1) Chloride Level 113 mmol/L (98-107) Carbon Dioxide Level 31 mmol/L (21-32) Anion Gap 8 (6-14) Blood Urea Nitrogen 38 mg/dL (7-20) Creatinine 0.9 mg/dL (0.6-1.0) Estimated GFR (Cockcroft-Gault) 66.5 BUN/Creatinine Ratio 42 (6-20) Glucose Level 137 mg/dL (70-99) Calcium Level 9.0 mg/dL (8.5-10.1) Total Bilirubin 0.4 mg/dL (0.2-1.0) Aspartate Amino Transf (AST/SGOT) 35 U/L (15-37) Alanine Aminotransferase (ALT/SGPT) 30 U/L (14-59) Alkaline Phosphatase 84 U/L (46-116) Total Protein 5.6 g/dL (6.4-8.2) Albumin 1.8 g/dL (3.4-5.0) Albumin/Globulin Ratio 0.5 (1.0-1.7) Test 08/24/19 08:20 5/6/20 13:00 Hemoglobin 6.4 g/dL (12.0-15.5) Hematocrit 20.1 % (36.0-47.0) Mean Corpuscular Hemoglobin Concent 32 g/dL (31-37) Glucose (Fingerstick) 156 mg/dL (70-99) Microbiology 08/22/19 Blood Culture - Preliminary, Resulted NO GROWTH AFTER 2 DAYS 08/18/19 Aerobic Culture - Final, Complete 08/18/19 Aerobic Culture Result 1 (ALEXANDRA) - Final, Complete 08/18/19 Gram Stain - Final, Complete 08/18/19 Gram Stain Result 1 (ALEXANDRA) - Final, Complete 08/18/19 Gram Stain Result 2 (ALEXANDRA) - Final, Complete 08/15/19 Aerobic and Anaerobic Culture - Final, Complete 08/15/19 Anaerobic Culture Result 1 (ALEXANDRA) - Final, Complete 08/15/19 Aerobic Culture - Final, Complete 08/15/19 Aerobic Culture Result 1 (ALEXANDRA) - Final, Complete 08/15/19 Gram Stain - Final, Complete 08/15/19 Gram Stain Result 1 (ALEXANDRA) - Final, Complete 08/15/19 Gram Stain Result 2 (ALEXANDRA) - Final, Complete 07/31/19 Urine Culture - Final, Complete 07/31/19 Urine Culture Result 1 (ALEXANDRA) - Final, Complete Medications Current Medications Sodium Chloride 1,000 ml @ 1,000 mls/hr Q1H IV Last administered on 07/04/19at 03:00; Start 07/04/19 at 03:00; Stop 07/04/19 at 03:59; Status DC Ondansetron HCl (Zofran) 4 mg 1X ONCE IVP Last administered on 07/04/19at 03:27; Start 07/04/19 at 03:00; Stop 07/04/19 at 03:01; Status DC Morphine Sulfate (Morphine Sulfate) 4 mg 1X ONCE IV ; Start 07/04/19 at 03:00; Stop 07/04/19 at 03:01; Status Cancel Ketorolac Tromethamine (Toradol 30mg Vial) 30 mg 1X ONCE IV Last administered on 07/04/19at 02:54; Start 07/04/19 at 03:00; Stop 07/04/19 at 03:01; Status DC Fentanyl Citrate (Fentanyl 2ml Vial) 25 mcg 1X ONCE IVP Last administered on 07/04/19at 03:23; Start 07/04/19 at 03:30; Stop 07/04/19 at 03:31; Status DC Fentanyl Citrate (Fentanyl 2ml Vial) 100 mcg STK-MED ONCE .ROUTE ; Start 07/04/19 at 03:18; Stop 07/04/19 at 03:18; Status DC Iohexol (Omnipaque 350 Mg/ml) 90 ml 1X ONCE IV Last administered on 07/04/19at 03:25; Start 07/04/19 at 03:30; Stop 07/04/19 at 03:31; Status DC Info (CONTRAST GIVEN -- Rx MONITORING) 1 each PRN DAILY PRN MC SEE COMMENTS; Start 07/04/19 at 03:30; Stop 07/06/19 at 03:29; Status DC Hydromorphone HCl (Dilaudid) 0.5 mg 1X ONCE IV Last administered on 07/04/19at 03:55; Start 07/04/19 at 04:30; Stop 07/04/19 at 04:32; Status DC Ondansetron HCl (Zofran) 4 mg PRN Q8HRS PRN IV NAUSEA/VOMITING 1ST CHOICE; Start 07/04/19 at 05:00; Stop 07/04/19 at 09:27; Status DC Morphine Sulfate (Morphine Sulfate) 2 mg PRN Q2HR PRN IV SEVERE PAIN 7-10 Last administered on 07/05/19at 12:26; Start 07/04/19 at 05:00; Stop 07/05/19 at 14:15; Status DC Sodium Chloride 1,000 ml @ 125 mls/hr Q8H IV Last administered on 07/04/19at 20:56; Start 07/04/19 at 05:00; Stop 07/05/19 at 04:59; Status DC Hydromorphone HCl (Dilaudid) 0.5 mg PRN Q3HRS PRN IV SEVERE PAIN 7-10 Last administered on 07/05/19at 10:06; Start 07/04/19 at 05:00; Stop 07/05/19 at 12:01; Status DC Piperacillin Sod/ Tazobactam Sod 4.5 gm/Sodium Chloride 100 ml @ 200 mls/hr 1X ONCE IV Last administered on 07/04/19at 05:44; Start 07/04/19 at 06:00; Stop 07/04/19 at 06:29; Status DC Ondansetron HCl (Zofran) 4 mg PRN Q4HRS PRN IV NAUSEA/VOMITING 1ST CHOICE Last administered on 08/23/19at 15:33; Start 07/04/19 at 09:30 Insulin Human Lispro (HumaLOG) 0-9 UNITS Q6HRS SQ Last administered on 08/24/19at 13:12; Start 07/04/19 at 09:30 Dextrose (Dextrose 50%-Water Syringe) 12.5 gm PRN Q15MIN PRN IV SEE COMMENTS; Start 07/04/19 at 09:30 Pantoprazole Sodium (PROTONIX VIAL for IV PUSH) 40 mg DAILYAC IVP Last administered on 08/24/19at 08:36; Start 07/04/19 at 11:30 Prochlorperazine Edisylate (Compazine) 10 mg PRN Q6HRS PRN IV NAUSEA/VOMITING, 2nd CHOICE Last administered on 08/22/19 06:06; Start 07/04/19 at 17:45 Atenolol (Tenormin) 100 mg DAILY PO ; Start 07/05/19 at 09:00; Stop 07/04/19 at 20:08; Status DC Metoprolol Tartrate (Lopressor Vial) 2.5 mg Q6HRS IVP Last administered on 07/05/19at 05:51; Start 07/04/19 at 20:15; Stop 07/05/19 at 10:02; Status DC Metoprolol Tartrate (Lopressor Vial) 5 mg Q6HRS IVP Last administered on 07/14/19at 00:12; Start 07/05/19 at 10:15; Stop 07/16/19 at 08:48; Status DC Hydromorphone HCl (Dilaudid) 1 mg PRN Q3HRS PRN IV SEVERE PAIN 7-10 Last administered on 07/11/19at 05:13; Start 07/05/19 at 12:00; Stop 07/19/19 at 00:25; Status DC Lidocaine HCl (Buffered Lidocaine 1%) 3 ml STK-MED ONCE .ROUTE ; Start 07/05/19 at 12:55; Stop 07/05/19 at 12:56; Status DC Albumin Human 500 ml @ 125 mls/hr 1X ONCE IV Last administered on 07/05/19at 14:33; Start 07/05/19 at 14:30; Stop 07/05/19 at 18:32; Status DC Norepinephrine Bitartrate 8 mg/ Dextrose 258 ml @ 17.299 mls/ hr CONT PRN IV PER PROTOCOL Last administered on 08/02/19at 12:48; Start 07/05/19 at 15:30; Stop 08/05/19 at 09:19; Status DC Sodium Chloride 1,000 ml @ 125 mls/hr Q8H IV Last administered on 07/05/19at 21:04; Start 07/05/19 at 16:00; Stop 07/06/19 at 02:42; Status DC Albumin Human 500 ml @ 125 mls/hr PRN BID PRN IV After every 2L NSS & BP < 90mm Last administered on 07/20/19at 14:21; Start 07/05/19 at 16:00 Iohexol (Omnipaque 300 Mg/ml) 60 ml 1X ONCE IV Last administered on 07/05/19at 17:20; Start 07/05/19 at 17:00; Stop 07/05/19 at 17:01; Status DC Info (CONTRAST GIVEN -- Rx MONITORING) 1 each PRN DAILY PRN MC SEE COMMENTS; S tart 07/05/19 at 17:00; Stop 07/07/19 at 16:59; Status DC Meropenem 1 gm/ Sodium Chloride 100 ml @ 200 mls/hr Q8HRS IV Last administered on 07/06/19at 05:45; Start 07/05/19 at 20:00; Stop 07/06/19 at 08:48; Status DC Furosemide (Lasix) 40 mg 1X ONCE IVP Last administered on 07/05/19at 22:12; Start 07/05/19 at 22:30; Stop 07/05/19 at 22:31; Status DC Calcium Chloride 1000 mg/Sodium Chloride 110 ml @ 220 mls/hr 1X ONCE IV Last administered on 07/05/19at 22:11; Start 07/05/19 at 22:30; Stop 07/05/19 at 2 2:59; Status DC Albuterol Sulfate (Ventolin Neb Soln) 2.5 mg 1X ONCE NEB Last administered on 07/06/19at 00:56; Start 07/05/19 at 22:30; Stop 07/05/19 at 22:31; Status DC Insulin Human Regular (HumuLIN R VIAL) 5 unit 1X ONCE IV Last administered on 07/05/19at 22:14; Start 07/05/19 at 22:30; Stop 07/05/19 at 22:31; Status DC Magnesium Sulfate 50 ml @ 25 mls/hr 1X ONCE IV Last administered on 07/06/19at 02:57; Start 07/06/19 at 03:00; Stop 07/06/19 at 04:59; Status DC Calcium Gluconate 1000 mg/Sodium Chloride 110 ml @ 220 mls/hr 1X ONCE IV Last administered on 07/06/19at 02:46; Start 07/06/19 at 03:00; Stop 07/06/19 at 03:29; Status DC Sodium Chloride 1,000 ml @ 200 mls/hr Q5H IV Last administered on 07/06/19at 02:46; Start 07/06/19 at 03:00; Stop 07/06/19 at 10:21; Status DC Calcium Gluconate 1000 mg/Sodium Chloride 110 ml @ 220 mls/hr 1X ONCE IV Last administered on 07/06/19at 03:21; Start 07/06/19 at 03:30; Stop 07/06/19 at 03:59; Status DC Sodium Bicarbonate 50 meq/Sodium Chloride 1,050 ml @ 75 mls/hr Q14H IV Last administered on 07/10/19at 21:10; Start 07/06/19 at 07:30; Stop 07/11/19 at 10:28; Status DC Calcium Gluconate 2000 mg/Sodium Chloride 120 ml @ 220 mls/hr 1X ONCE IV Last administered on 07/06/19at 09:05; Start 07/06/19 at 07:30; Stop 07/06/19 at 08:02; Status DC Lidocaine HCl (Xylocaine-Mpf 1% 2ml Vial) 2 ml STK-MED ONCE .ROUTE ; Start 07/06/19 at 08:47; Stop 07/06/19 at 08:47; Status DC Meropenem 500 mg/ Sodium Chloride 50 ml @ 100 mls/hr Q12HR IV Last administered on 07/11/19at 21:01; Start 07/06/19 at 18:00; Stop 07/12/19 at 07:58; Status DC Lidocaine HCl (Buffered Lidocaine 1%) 3 ml STK-MED ONCE .ROUTE ; Start 07/06/19 at 09:46; Stop 07/06/19 at 09:46; Status DC Lidocaine HCl (Buffered Lidocaine 1%) 6 ml 1X ONCE INJ Last administered on 07/06/19at 10:26; Start 07/06/19 at 10:15; Stop 07/06/19 at 10:16; Status DC Info (Tpn Per Pharmacy) 1 each PRN DAILY PRN MC SEE COMMENTS Last administered on 08/24/19at 13:45; Start 07/06/19 at 12:00 Sodium Chloride 1,000 ml @ 1,000 mls/hr Q1H PRN IV hypotension; Start 07/06/19 at 12:07; Stop 07/06/19 at 18:06; Status DC Diphenhydramine HCl (Benadryl) 25 mg 1X PRN PRN IV ITCHING; Start 07/06/19 at 12:15; Stop 07/07/19 at 12:14; Status DC Diphenhydramine HCl (Benadryl) 25 mg 1X PRN PRN IV ITCHING; Start 07/06/19 at 12:15; Stop 07/07/19 at 12:14; Status DC Sodium Chloride 1,000 ml @ 400 mls/hr Q2H30M PRN IV PATENCY; Start 07/06/19 at 12:07; Stop 07/07/19 at 00:06; Status DC Info (PHARMACY MONITORING -- do not chart) 1 each PRN DAILY PRN MC SEE COMMENTS; Start 07/06/19 at 12:15; Stop 07/08/19 at 08:13; Status DC Sodium Chloride 90 meq/Calcium Gluconate 10 meq/ Multivitamins 10 ml/Chromium/ Copper/Manganese/ Seleni/Zn 1 ml/ Total Parenteral Nutrition/Amino Acids/Dextrose/ Fat Emulsion Intravenous 55.005 ml @ 2.292 mls/hr TPN CONT IV ; Start 07/06/19 at 22:00; Stop 07/06/19 at 12:33; Status DC Info (Tpn Per Pharmacy) 1 each PRN DAILY PRN MC SEE COMMENTS; Start 07/06/19 at 12:30; Status UNV Sodium Chloride 90 meq/Calcium Gluconate 10 meq/ Multivitamins 10 ml/Chromium/ Copper/Manganese/ Seleni/Zn 0.5 ml/ Total Parenteral Nutrition/Amino Acids/Dextrose/ Fat Emulsion Intravenous 1,512 ml @ 63 mls/hr TPN CONT IV Last administered on 07/06/19at 22:06; Start 07/06/19 at 22:00; Stop 07/07/19 at 21:59; Status DC Calcium Carbonate/ Glycine (Tums) 500 mg PRN AFTMEALHC PRN PO INDIGESTION; Start 07/06/19 at 17:45 Calcium Gluconate (Calcium Gluconate) 2,000 mg 1X ONCE IVP Last administered on 07/07/19at 02:19; Start 07/07/19 at 02:15; Stop 07/07/19 at 02:16; Status DC Calcium Chloride 3000 mg/Sodium Chloride 1,030 ml @ 50 mls/hr [id number] IV Last administered on 07/09/19at 02:17; Start 07/07/19 at 08:00; Stop 07/09/19 at 15:23; Status DC Lorazepam (Ativan Inj) 1 mg PRN Q4HRS PRN IVP ANXIETY / AGITATION, 2nd choic Last administered on 08/05/19at 03:51; Start 07/07/19 at 09:00; Stop 08/05/19 at 09:19; Status DC Sodium Chloride 1,000 ml @ 1,000 mls/hr Q1H PRN IV hypotension; Start 07/07/19 at 08:56; Stop 07/07/19 at 14:55; Status DC Albumin Human 200 ml @ 200 mls/hr 1X PRN PRN IV Hypotension; Start 07/07/19 at 09:00; Stop 07/07/19 at 14:59; Status DC Diphenhydramine HCl (Benadryl) 25 mg 1X PRN PRN IV ITCHING; Start 07/07/19 at 09:00; Stop 07/08/19 at 08:59; Status DC Diphenhydramine HCl (Benadryl) 25 mg 1X PRN PRN IV ITCHING; Start 07/07/19 at 09:00; Stop 07/08/19 at 08:59; Status DC Sodium Chloride 1,000 ml @ 400 mls/hr Q2H30M PRN IV PATENCY; Start 07/07/19 at 08:56; Stop 07/07/19 at 20:55; Status DC Info (PHARMACY MONITORING -- do not chart) 1 each PRN DAILY PRN MC SEE COMMENTS; Start 07/07/19 at 09:00; Status UNV Info (PHARMACY MONITORING -- do not chart) 1 each PRN DAILY PRN MC SEE COMMENTS; Start 07/07/19 at 09:00; Stop 07/08/19 at 08:13; Status DC Digoxin (Lanoxin) 500 mcg 1X ONCE IV Last administered on 07/07/19at 10:04; Start 07/07/19 at 10:00; Stop 07/07/19 at 10:01; Status DC Digoxin (Lanoxin) 125 mcg 1X ONCE IV Last administered on 07/07/19at 17:10; Start 07/07/19 at 18:00; Stop 07/07/19 at 18:01; Status DC Magnesium Sulfate 100 ml @ 25 mls/hr 1X ONCE IV Last administered on 07/07/19at 12:48; Start 07/07/19 at 13:00; Stop 07/07/19 at 16:59; Status DC Sodium Chloride 90 meq/Magnesium Sulfate 10 meq/ Calcium Gluconate 20 meq/ Multivitamins 10 ml/Chromium/ Copper/Manganese/ Seleni/Zn 0.5 ml/ Total Parenteral Nutrition/Amino Acids/Dextrose/ Fat Emulsion Intravenous 1,512 ml @ 63 mls/hr TPN CONT IV Last administered on 07/07/19at 22:25; Start 07/07/19 at 22:00; Stop 07/08/19 at 21:59; Status DC Sodium Chloride 1,000 ml @ 1,000 mls/hr Q1H PRN IV hypotension; Start 07/08/19 at 08:05; Stop 07/08/19 at 14:04; Status DC Albumin Human 200 ml @ 200 mls/hr 1X ONCE IV Last administered on 07/08/19at 08:57; Start 07/08/19 at 08:15; Stop 07/08/19 at 09:14; Status DC Diphenhydramine HCl (Benadryl) 25 mg 1X PRN PRN IV ITCHING; Start 07/08/19 at 08:15; Stop 07/09/19 at 08:14; Status DC Diphenhydramine HCl (Benadryl) 25 mg 1X PRN PRN IV ITCHING; Start 07/08/19 at 08:15; Stop 07/09/19 at 08:14; Status DC Sodium Chloride 1,000 ml @ 400 mls/hr Q2H30M PRN IV PATENCY; Start 07/08/19 at 08:05; Stop 07/08/19 at 20:04; Status DC Info (PHARMACY MONITORING -- do not chart) 1 each PRN DAILY PRN MC SEE COMMENTS; Start 07/08/19 at 08:15; Stop 07/12/19 at 07:57; Status DC Sodium Chloride 90 meq/Potassium Chloride 15 meq/ Potassium Phosphate 10 mmol/ Magnesium Sulfate 10 meq/Calcium Gluconate 20 meq/ Multivitamins 10 ml/Chromium/ Copper/Manganese/ Seleni/Zn 0.5 ml/ Total Parenteral Nutrition/Amino Acids/Dextrose/ Fat Emulsion Intravenous 1,512 ml @ 63 mls/hr TPN CONT IV Last administered on 07/08/19at 21:01; Start 07/08/19 at 22:00; Stop 07/09/19 at 21:59; Status DC Potassium Chloride/Water 100 ml @ 100 mls/hr 1X ONCE IV Last administered on 07/08/19at 14:09; Start 07/08/19 at 14:00; Stop 07/08/19 at 14:59; Status DC Benzocaine (Hurricaine One) 1 spray 1X ONCE MM Last administered on 07/08/19at 16:38; Start 07/08/19 at 14:30; Stop 07/08/19 at 14:31; Status DC Lidocaine HCl (Glydo (Lidocaine) Jelly) 1 ramu 1X ONCE MM Last administered on 07/08/19at 16:38; Start 07/08/19 at 14:30; Stop 07/08/19 at 14:31; Status DC Linezolid/Dextrose 300 ml @ 300 mls/hr Q12HR IV Last administered on 07/14/19at 21:04; Start 07/08/19 at 20:00; Stop 07/15/19 at 07:50; Status DC Acetaminophen (Tylenol) 650 mg PRN Q6HRS PRN PO MILD PAIN / TEMP; Start 07/09/19 at 03:30; Stop 07/09/19 at 03:36; Status DC Acetaminophen (Tylenol) 650 mg PRN Q6HRS PRN PEG MILD PAIN / TEMP Last administered on 08/04/19at 19:56; Start 07/09/19 at 03:36 Sodium Chloride 1,000 ml @ 1,000 mls/hr Q1H PRN IV hypotension; Start 07/09/19 at 07:50; Stop 07/09/19 at 13:49; Status DC Albumin Human 200 ml @ 200 mls/hr 1X PRN PRN IV Hypotension; Start 07/09/19 at 08:00; Stop 07/09/19 at 13:59; Status DC Sodium Chloride (Normal Saline Flush) 10 ml 1X PRN PRN IV AP catheter pack; Start 07/09/19 at 08:00; Stop 07/10/19 at 07:59; Status DC Sodium Chloride (Normal Saline Flush) 10 ml 1X PRN PRN IV EVP MARKETING catheter pack; Start 07/09/19 at 08:00; Stop 07/10/19 at 07:59; Status DC Sodium Chloride 1,000 ml @ 400 mls/hr Q2H30M PRN IV PATENCY; Start 07/09/19 at 07:50; Stop 07/09/19 at 19:49; Status DC Info (PHARMACY MONITORING -- do not chart) 1 each PRN DAILY PRN MC SEE COMMENTS; Start 07/09/19 at 08:00; Status UNV Info (PHARMACY MONITORING -- do not chart) 1 each PRN DAILY PRN MC SEE COMMENTS; Start 07/09/19 at 08:00; Stop 07/11/19 at 08:25; Status DC Sodium Chloride 90 meq/Potassium Chloride 15 meq/ Potassium Phosphate 10 mmol/ Magnesium Sulfate 10 meq/Calcium Gluconate 20 meq/ Multivitamins 10 ml/Chromium/ Copper/Manganese/ Seleni/Zn 0.5 ml/ Total Parenteral Nutrition/Amino Acids/Dextrose/ Fat Emulsion Intravenous 1,512 ml @ 63 mls/hr TPN CONT IV Last administered on 07/09/19at 20:57; Start 07/09/19 at 22:00; Stop 07/10/19 at 21:59; Status DC Sodium Chloride 90 meq/Potassium Chloride 15 meq/ Potassium Phosphate 15 mmol/ Magnesium Sulfate 10 meq/Calcium Gluconate 20 meq/ Multivitamins 10 ml/Chromium/ Copper/Manganese/ Seleni/Zn 0.5 ml/ Total Parenteral Nutrition/Amino Acids/Dextrose/ Fat Emulsion Intravenous 1,512 ml @ 63 mls/hr TPN CONT IV ; Start 07/10/19 at 22:00; Stop 07/10/19 at 14:16; Status DC Sodium Chloride 90 meq/Potassium Chloride 15 meq/ Potassium Phosphate 15 mmol/ Magnesium Sulfate 10 meq/Calcium Gluconate 20 meq/ Multivitamins 10 ml/Chromium/ Copper/Manganese/ Seleni/Zn 0.5 ml/ Total Parenteral Nutrition/Amino Acids/Dextrose/ Fat Emulsion Intravenous 1,200 ml @ 50 mls/hr TPN CONT IV ; Start 07/10/19 at 22:00; Stop 07/10/19 at 14:17; Status DC Sodium Chloride 90 meq/Potassium Chloride 15 meq/ Potassium Phosphate 10 mmol/ Magnesium Sulfate 10 meq/Calcium Gluconate 20 meq/ Multivitamins 10 ml/Chromium/ Copper/Manganese/ Seleni/Zn 0.5 ml/ Total Parenteral Nutrition/Amino Acids/Dextrose/ Fat Emulsion Intravenous 1,200 ml @ 50 mls/hr TPN CONT IV Last administered on 07/10/19at 23:29; Start 07/10/19 at 22:00; Stop 07/11/19 at 21:59; Status DC Sodium Chloride 1,000 ml @ 1,000 mls/hr Q1H PRN IV hypotension; Start 07/11/19 at 07:28; Stop 07/11/19 at 13:27; Status DC Albumin Human 200 ml @ 200 mls/hr 1X ONCE IV Last administered on 07/11/19at 08:51; Start 07/11/19 at 07:30; Stop 07/11/19 at 08:29; Status DC Diphenhydramine HCl (Benadryl) 25 mg 1X PRN PRN IV ITCHING; Start 07/11/19 at 07:30; Stop 07/12/19 at 07:29; Status DC Diphenhydramine HCl (Benadryl) 25 mg 1X PRN PRN IV ITCHING; Start 07/11/19 at 07:30; Stop 07/12/19 at 07:29; Status DC Sodium Chloride 1,000 ml @ 400 mls/hr Q2H30M PRN IV PATENCY; Start 07/11/19 at 07:28; Stop 07/11/19 at 19:27; Status DC Info (PHARMACY MONITORING -- do not chart) 1 each PRN DAILY PRN MC SEE COMMENTS; Start 07/11/19 at 07:30; Stop 07/22/19 at 13:01; Status DC Metronidazole 100 ml @ 100 mls/hr Q6HRS IV Last administered on 07/27/19at 06:26; Start 07/11/19 at 08:30; Stop 07/27/19 at 09:58; Status DC Micafungin Sodium 100 mg/Dextrose 100 ml @ 100 mls/hr Q24H IV Last administered on 08/18/19at 08:18; Start 07/11/19 at 09:00; Stop 08/18/19 at 20:58; Status DC Propofol 0 ml @ As Directed STK-MED ONCE IV ; Start 07/11/19 at 07:53; Stop 07/11/19 at 07:53; Status DC Etomidate (Amidate) 20 mg STK-MED ONCE IV ; Start 07/11/19 at 07:53; Stop 07/11/19 at 07:54; Status DC Midazolam HCl (Versed) 5 mg STK-MED ONCE .ROUTE ; Start 07/11/19 at 07:57; Stop 07/11/19 at 07:57; Status DC Fentanyl Citrate 30 ml @ 0 mls/hr CONT PRN IV SEE PROTOCOL Last administered on 08/05/19at 06:12; Start 07/11/19 at 08:15; Stop 08/05/19 at 09:19; Status DC Artificial Tears (Artificial Tears) 1 drop PRN Q1HR PRN OU DRY EYE, 1st choice; Start 07/11/19 at 08:15; Stop 08/17/19 at 05:31; Status DC Midazolam HCl 50 mg/Sodium Chloride 50 ml @ 0 mls/hr CONT PRN IV SEE PROTOCOL Last administered on 07/14/19at 22:39; Start 07/11/19 at 08:15; Stop 07/16/19 at 15:59; Status DC Etomidate (Amidate) 8 mg 1X ONCE IV Last administered on 07/11/19at 08:33; Start 07/11/19 at 08:30; Stop 07/11/19 at 08:31; Status DC Succinylcholine Chloride (Anectine) 120 mg 1X ONCE IV Last administered on 07/11/19at 08:34; Start 07/11/19 at 08:30; Stop 07/11/19 at 08:31; Status DC Midazolam HCl (Versed) 5 mg 1X ONCE IV ; Start 07/11/19 at 08:30; Stop 07/11/19 at 08:31; Status DC Potassium Chloride 15 meq/ Bicarbonate Dialysis Soln w/ out KCl 5,007.5 ml @ 1,000 mls/ hr Q5H1M IV Last administered on 07/12/19at 11:11; Start 07/11/19 at 12:00; Stop 07/12/19 at 11:15; Status DC Potassium Chloride 15 meq/ Bicarbonate Dialysis Soln w/ out KCl 5,007.5 ml @ 1,000 mls/ hr Q5H1M IV Last administered on 07/12/19at 11:12; Start 07/11/19 at 12:00; Stop 07/12/19 at 11:17; Status DC Potassium Chloride 15 meq/ Bicarbonate Dialysis Soln w/ out KCl 5,007.5 ml @ 1,000 mls/ hr Q5H1M IV Last administered on 07/12/19at 11:11; Start 07/11/19 at 12:00; Stop 07/12/19 at 11:19; Status DC Sodium Chloride 90 meq/Potassium Chloride 15 meq/ Potassium Phosphate 10 mmol/ Magnesium Sulfate 10 meq/Calcium Gluconate 20 meq/ Multivitamins 10 ml/Chromium/ Copper/Manganese/ Seleni/Zn 0.5 ml/ Total Parenteral Nutrition/Amino Acids/Dextrose/ Fat Emulsion Intravenous 1,400 ml @ 58.333 mls/ hr TPN CONT IV Last administered on 07/11/19at 21:42; Start 07/11/19 at 22:00; Stop 07/12/19 at 21:59; Status DC Heparin Sodium (Porcine) (Heparin Sodium) 5,000 unit Q8HRS SQ Last administered on 07/16/19at 05:55; Start 07/11/19 at 15:00; Stop 07/16/19 at 13:28; Status DC Meropenem 500 mg/ Sodium Chloride 50 ml @ 100 mls/hr Q6HRS IV Last administered on 07/13/19at 06:00; Start 07/12/19 at 09:00; Stop 07/13/19 at 07:29; Status DC Potassium Phosphate 20 mmol/ Sodium Chloride 106.6667 ml @ 51.667 m... 1X ONCE IV Last administered on 07/12/19at 11:22; Start 07/12/19 at 10:15; Stop 07/12/19 at 12:18; Status DC Acetaminophen (Tylenol Supp) 650 mg PRN Q6HRS PRN IA MILD PAIN / TEMP > 100.3'F Last administered on 08/23/19at 09:12; Start 07/12/19 at 10:30 Potassium Chloride/Water 100 ml @ 100 mls/hr Q1H IV Last administered on 07/12/19at 12:12; Start 07/12/19 at 11:00; Stop 07/12/19 at 12:59; Status DC Potassium Chloride 20 meq/ Bicarbonate Dialysis Soln w/ out KCl 5,010 ml @ 1,000 mls/hr Q5H1M IV Last administered on 07/13/19at 08:48; Start 07/12/19 at 12:00; Stop 07/13/19 at 13:03; Status DC Potassium Chloride 20 meq/ Bicarbonate Dialysis Soln w/ out KCl 5,010 ml @ 1,000 mls/hr Q5H1M IV Last administered on 07/17/19at 14:52; Start 07/12/19 at 11:30; Stop 07/17/19 at 19:59; Status DC Potassium Chloride 20 meq/ Bicarbonate Dialysis Soln w/ out KCl 5,010 ml @ 1,000 mls/hr Q5H1M IV Last administered on 07/17/19at 14:53; Start 07/12/19 at 11:30; Stop 07/17/19 at 19:59; Status DC Sodium Chloride 90 meq/Potassium Chloride 15 meq/ Potassium Phosphate 15 mmol/ Magnesium Sulfate 10 meq/Calcium Gluconate 15 meq/ Multivitamins 10 ml/Chromium/ Copper/Manganese/ Seleni/Zn 0.5 ml/ Total Parenteral Nutrition/Amino Acids/Dextrose/ Fat Emulsion Intravenous 1,400 ml @ 58.333 mls/ hr TPN CONT IV Last administered on 07/12/19at 22:17; Start 07/12/19 at 22:00; Stop 07/13/19 at 21:59; Status DC Cefepime HCl (Maxipime) 2 gm Q12HR IVP Last administered on 07/26/19at 20:56; Start 07/13/19 at 09:00; Stop 07/27/19 at 09:58; Status DC Daptomycin 500 mg/ Sodium Chloride 50 ml @ 100 mls/hr Q48H IV Last administered on 07/29/19at 09:57; Start 07/13/19 at 08:30; Stop 07/29/19 at 10:07; Status DC Lidocaine HCl (Buffered Lidocaine 1%) 3 ml 1X ONCE INJ Last administered on 07/13/19at 10:27; Start 07/13/19 at 10:30; Stop 07/13/19 at 10:31; Status DC Potassium Phosphate 20 mmol/ Sodium Chloride 106.6667 ml @ 51.667 m... 1X ONCE IV Last administered on 07/13/19at 12:51; Start 07/13/19 at 13:00; Stop 07/13/19 at 15:03; Status DC Sodium Chloride 90 meq/Potassium Chloride 15 meq/ Potassium Phosphate 18 mmol/ Magnesium Sulfate 8 meq/Calcium Gluconate 15 meq/ Multivitamins 10 ml/Chromium/ Copper/Manganese/ Seleni/Zn 0.5 ml/ Total Parenteral Nutrition/Amino Acids/Dextrose/ Fat Emulsion Intravenous 1,400 ml @ 58.333 mls/ hr TPN CONT IV Last administered on 07/13/19at 22:16; Start 07/13/19 at 22:00; Stop 07/14/19 at 21:59; Status DC Potassium Chloride 20 meq/ Bicarbonate Dialysis Soln w/ out KCl 5,010 ml @ 1,000 mls/hr Q5H1M IV Last administered on 07/17/19at 14:54; Start 07/13/19 at 16:00; Stop 07/17/19 at 19:59; Status DC Multi-Ingred Cream/Lotion/Oil/ Oint (Artificial Tears Eye Ointment) 1 ramu PRN Q1HR PRN OU DRY EYE, 2nd choice Last administered on 08/01/19at 08:19; Start 07/13/19 at 17:30 Sodium Chloride 90 meq/Potassium Chloride 15 meq/ Potassium Phosphate 18 mmol/ Magnesium Sulfate 8 meq/Calcium Gluconate 15 meq/ Multivitamins 10 ml/Chromium/ Copper/Manganese/ Seleni/Zn 0.5 ml/ Total Parenteral Nutrition/Amino Acids/Dextrose/ Fat Emulsion Intravenous 1,400 ml @ 58.333 mls/ hr TPN CONT IV Last administered on 07/14/19at 22:00; Start 07/14/19 at 22:00; Stop 07/15/19 at 21:59; Status DC Albumin Human 500 ml @ 125 mls/hr 1X ONCE IV ; Start 07/14/19 at 14:15; Stop 07/14/19 at 18:14; Status DC Sodium Chloride 90 meq/Potassium Chloride 15 meq/ Potassium Phosphate 18 mmol/ Magnesium Sulfate 8 meq/Calcium Gluconate 15 meq/ Multivitamins 10 ml/Chromium/ Copper/Manganese/ Seleni/Zn 0.5 ml/ Insulin Human Regular 10 unit/ Total Parenteral Nutrition/Amino Acids/Dextrose/ Fat Emulsion Intravenous 1,400 ml @ 58.333 mls/ hr TPN CONT IV Last administered on 07/15/19at 21:43; Start 07/15/19 at 22:00; Stop 07/16/19 at 21:59; Status DC Lidocaine HCl (Buffered Lidocaine 1%) 3 ml STK-MED ONCE .ROUTE ; Start 07/13/19 at 10:00; Stop 07/15/19 at 13:57; Status DC Midazolam HCl 100 mg/Sodium Chloride 100 ml @ 7 mls/hr CONT PRN IV SEE PROTOCOL Last administered on 07/27/19at 15:35; Start 07/16/19 at 16:00 Sodium Chloride 90 meq/Potassium Chloride 15 meq/ Potassium Phosphate 18 mmol/ Magnesium Sulfate 8 meq/Calcium Gluconate 15 meq/ Multivitamins 10 ml/Chromium/ Copper/Manganese/ Seleni/Zn 0.5 ml/ Insulin Human Regular 15 unit/ Total Paren teral Nutrition/Amino Acids/Dextrose/ Fat Emulsion Intravenous 1,400 ml @ 58.333 mls/ hr TPN CONT IV Last administered on 07/16/19at 20:34; Start 07/16/19 at 22:00; Stop 07/17/19 at 21:59; Status DC Info (Icu Electrolyte Protocol) 1 ea CONT PRN PRN MC PER PROTOCOL; Start 07/17/19 at 13:15 Sodium Chloride 90 meq/Potassium Chloride 15 meq/ Potassium Phosphate 18 mmol/ Magnesium Sulfate 8 meq/Calcium Gluconate 15 meq/ Multivitamins 10 ml/Chromium/ Copper/Manganese/ Seleni/Zn 0.5 ml/ Insulin Human Regular 15 unit/ Total Parenteral Nutrition/Amino Acids/Dextrose/ Fat Emulsion Intravenous 1,400 ml @ 58.333 mls/ hr TPN CONT IV Last administered on 07/17/19at 22:05; Start 07/17/19 at 22:00; Stop 07/18/19 at 21:59; Status DC Potassium Chloride 15 meq/ Bicarbonate Dialysis Soln w/ out KCl 5,007.5 ml @ 1,000 mls/ hr Q5H1M IV Last administered on 07/20/19at 18:14; Start 07/17/19 at 20:00; Stop 07/21/19 at 13:08; Status DC Potassium Chloride 15 meq/ Bicarbonate Dialysis Soln w/ out KCl 5,007.5 ml @ 1,000 mls/ hr Q5H1M IV Last administered on 07/20/19at 18:14; Start 07/17/19 at 20:00; Stop 07/21/19 at 13:08; Status DC Potassium Chloride 15 meq/ Bicarbonate Dialysis Soln w/ out KCl 5,007.5 ml @ 1,000 mls/ hr Q5H1M IV Last administered on 07/20/19at 18:14; Start 07/17/19 at 20:00; Stop 07/21/19 at 13:08; Status DC Iohexol (Omnipaque 240 Mg/ml) 30 ml 1X ONCE PO Last administered on 07/18/19at 11:30; Start 07/18/19 at 11:30; Stop 07/18/19 at 11:33; Status DC Info (CONTRAST GIVEN -- Rx MONITORING) 1 each PRN DAILY PRN MC SEE COMMENTS; Start 07/18/19 at 11:45; Stop 07/20/19 at 11:44; Status DC Sodium Chloride 90 meq/Potassium Chloride 15 meq/ Potassium Phosphate 18 mmol/ Magnesium Sulfate 8 meq/Calcium Gluconate 15 meq/ Multivitamins 10 ml/Chromium/ Copper/Manganese/ Seleni/Zn 0.5 ml/ Insulin Human Regular 15 unit/ Total Parenteral Nutrition/Amino Acids/Dextrose/ Fat Emulsion Intravenous 1,400 ml @ 58.333 mls/ hr TPN CONT IV Last administered on 07/18/19at 21:47; Start 07/18/19 at 22:00; Stop 07/19/19 at 21:59; Status DC Sodium Chloride 90 meq/Potassium Chloride 15 meq/ Potassium Phosphate 18 mmol/ Magnesium Sulfate 8 meq/Calcium Gluconate 15 meq/ Multivitamins 10 ml/Chromium/ Copper/Manganese/ Seleni/Zn 0.5 ml/ Insulin Human Regular 20 unit/ Total Parenteral Nutrition/Amino Acids/Dextrose/ Fat Emulsion Intravenous 1,400 ml @ 58.333 mls/ hr TPN CONT IV Last administered on 07/19/19at 21:36; Start 07/19/19 at 22:00; Stop 07/20/19 at 21:59; Status DC Alteplase, Recombinant (Cathflo For Central Catheter Clearance) 1 mg 1X ONCE INT CAT Last administered on 07/19/19at 20:03; Start 07/19/19 at 19:30; Stop 07/19/19 at 19:46; Status DC Alteplase, Recombinant (Cathflo For Central Catheter Clearance) 1 mg 1X ONCE INT CAT Last administered on 07/19/19at 22:05; Start 07/19/19 at 22:00; Stop 07/19/19 at 22:01; Status DC Sodium Chloride 90 meq/Potassium Chloride 15 meq/ Potassium Phosphate 18 mmol/ Magnesium Sulfate 8 meq/Calcium Gluconate 15 meq/ Multivitamins 10 ml/Chromium/ Copper/Manganese/ Seleni/Zn 0.5 ml/ Insulin Human Regular 20 unit/ Total Parenteral Nutrition/Amino Acids/Dextrose/ Fat Emulsion Intravenous 1,400 ml @ 58.333 mls/ hr TPN CONT IV Last administered on 07/20/19at 21:30; Start 07/20/19 at 22:00; Stop 07/21/19 at 21:59; Status DC Dexmedetomidine HCl 400 mcg/ Sodium Chloride 100 ml @ 0 mls/hr CONT PRN IV ANXIETY / AGITATION Last administered on 08/24/19at 13:13; Start 07/21/19 at 08:15 Sodium Chloride 500 ml @ 500 mls/hr 1X PRN PRN IV ELEVATED BP, SEE COMMENTS; Start 07/21/19 at 08:15 Atropine Sulfate (ATROPINE 0.5mg SYRINGE) 0.5 mg PRN Q5MIN PRN IV SEE COMMENTS; Start 07/21/19 at 08:15 Furosemide (Lasix) 20 mg 1X ONCE IVP Last administered on 07/21/19at 08:19; Start 07/21/19 at 08:15; Stop 07/21/19 at 08:16; Status DC Lidocaine HCl (Buffered Lidocaine 1%) 3 ml STK-MED ONCE .ROUTE ; Start 07/21/19 at 08:39; Stop 07/21/19 at 08:39; Status DC Lidocaine HCl (Buffered Lidocaine 1%) 6 ml 1X ONCE INJ Last administered on 07/21/19at 09:05; Start 07/21/19 at 09:00; Stop 07/21/19 at 09:06; Status DC Sodium Chloride 90 meq/Potassium Chloride 15 meq/ Potassium Phosphate 18 mmol/ Magnesium Sulfate 8 meq/Calcium Gluconate 15 meq/ Multivitamins 10 ml/Chromium/ Copper/Manganese/ Seleni/Zn 0.5 ml/ Insulin Human Regular 20 unit/ Total Parenteral Nutrition/Amino Acids/Dextrose/ Fat Emulsion Intravenous 1,400 ml @ 58.333 mls/ hr TPN CONT IV Last administered on 07/21/19at 22:45; Start 07/21/19 at 22:00; Stop 07/22/19 at 21:59; Status DC Sodium Chloride 1,000 ml @ 1,000 mls/hr Q1H PRN IV hypotension; Start 07/22/19 at 07:30; Stop 07/22/19 at 13:29; Status DC Albumin Human 200 ml @ 200 mls/hr 1X PRN PRN IV Hypotension Last administered on 07/22/19at 09:36; Start 07/22/19 at 07:30; Stop 07/22/19 at 13:29; Status DC Sodium Chloride (Normal Saline Flush) 10 ml 1X PRN PRN IV AP catheter pack; Start 07/22/19 at 07:30; Stop 07/22/19 at 21:29; Status DC Sodium Chloride (Normal Saline Flush) 10 ml 1X PRN PRN IV EVP MARKETING catheter pack; Start 07/22/19 at 07:30; Stop 07/23/19 at 07:29; Status DC Sodium Chloride 1,000 ml @ 400 mls/hr Q2H30M PRN IV PATENCY; Start 07/22/19 at 07:30; Stop 07/22/19 at 19:29; Status DC Info (PHARMACY MONITORING -- do not chart) 1 each PRN DAILY PRN MC SEE COMME NTS; Start 07/22/19 at 07:30; Stop 07/22/19 at 13:02; Status DC Info (PHARMACY MONITORING -- do not chart) 1 each PRN DAILY PRN MC SEE COMMENTS; Start 07/22/19 at 07:30; Stop 07/24/19 at 12:45; Status DC Sodium Chloride 90 meq/Potassium Chloride 15 meq/ Potassium Phosphate 10 mmol/ Magnesium Sulfate 8 meq/Calcium Gluconate 15 meq/ Multivitamins 10 ml/Chromium/ Copper/Manganese/ Seleni/Zn 0.5 ml/ Insulin Human Regular 25 unit/ Total Parenteral Nutrition/Amino Acids/Dextrose/ Fat Emulsion Intravenous 1,400 ml @ 58.333 mls/ hr TPN CONT IV Last administered on 07/22/19at 22:19; Start 07/22/19 at 22:00; Stop 07/23/19 at 21:59; Status DC Heparin Sodium (Porcine) (Heparin Sodium) 5,000 unit Q12HR SQ Last administered on 08/14/19at 08:59; Start 07/22/19 at 21:00; Stop 08/14/19 at 10:05; Status DC Ondansetron HCl (Zofran) 4 mg PRN Q6HRS PRN IV NAUSEA/VOMITING; Start 07/25/19 at 07:00; Stop 07/26/19 at 06:59; Status DC Fentanyl Citrate (Fentanyl 2ml Vial) 25 mcg PRN Q5MIN PRN IV MILD PAIN 1-3; Start 07/25/19 at 07:00; Stop 07/26/19 at 06:59; Status DC Fentanyl Citrate (Fentanyl 2ml Vial) 50 mcg PRN Q5MIN PRN IV MODERATE TO SEVERE PAIN; Start 07/25/19 at 07:00; Stop 07/26/19 at 06:59; Status DC Ringer's Solution 1,000 ml @ 30 mls/hr Q24H IV ; Start 07/25/19 at 07:00; Stop 07/25/19 at 18:59; Status DC Lidocaine HCl (Xylocaine-Mpf 1% 2ml Vial) 2 ml PRN 1X PRN ID PRIOR TO IV START; Start 07/25/19 at 07:00; Stop 07/26/19 at 06:59; Status DC Prochlorperazine Edisylate (Compazine) 5 mg PACU PRN PRN IV NAUSEA, MRX1; Start 07/25/19 at 07:00; Stop 07/26/19 at 06:59; Status DC Sodium Chloride 1,000 ml @ 1,000 mls/hr Q1H PRN IV hypotension; Start 07/23/19 at 09:10; Stop 07/23/19 at 15:09; Status DC Albumin Human 200 ml @ 200 mls/hr 1X PRN PRN IV Hypotension Last administered on 07/23/19at 10:10; Start 07/23/19 at 09:15; Stop 07/23/19 at 15:14; Status DC Sodium Chloride 1,000 ml @ 400 mls/hr Q2H30M PRN IV PATENCY; Start 07/23/19 at 09:10; Stop 07/23/19 at 21:09; Status DC Info (PHARMACY MONITORING -- do not chart) 1 each PRN DAILY PRN MC SEE COMMENTS; Start 07/23/19 at 09:15; Stop 07/24/19 at 12:45; Status DC Info (PHARMACY MONITORING -- do not chart) 1 each PRN DAILY PRN MC SEE COMMENTS; Start 07/23/19 at 09:15; Stop 07/24/19 at 12:45; Status DC Sodium Chloride 90 meq/Potassium Chloride 15 meq/ Potassium Phosphate 10 mmol/ Magnesium Sulfate 8 meq/Calcium Gluconate 15 meq/ Multivitamins 10 ml/Chromium/ Copper/Manganese/ Seleni/Zn 0.5 ml/ Insulin Human Regular 25 unit/ Total Parenteral Nutrition/Amino Acids/Dextrose/ Fat Emulsion Intravenous 1,400 ml @ 58.333 mls/ hr TPN CONT IV Last administered on 07/23/19at 22:10; Start 07/23/19 at 22:00; Stop 07/24/19 at 21:59; Status DC Magnesium Sulfate 50 ml @ 25 mls/hr PRN DAILY PRN IV for Mag < 1.7 on am labs Last administered on 08/08/19at 17:27; Start 07/24/19 at 09:15 Sodium Chloride 90 meq/Potassium Chloride 15 meq/ Potassium Phosphate 10 mmol/ Magnesium Sulfate 8 meq/Calcium Gluconate 15 meq/ Multivitamins 10 ml/Chromium/ Copper/Manganese/ Seleni/Zn 0.5 ml/ Insulin Human Regular 25 unit/ Total Pa renteral Nutrition/Amino Acids/Dextrose/ Fat Emulsion Intravenous 1,400 ml @ 58.333 mls/ hr TPN CONT IV Last administered on 07/24/19at 21:20; Start 07/24/19 at 22:00; Stop 07/25/19 at 21:59; Status DC Sodium Chloride 1,000 ml @ 1,000 mls/hr Q1H PRN IV hypotension; Start 07/24/19 at 12:23; Stop 07/24/19 at 18:22; Status DC Albumin Human 200 ml @ 200 mls/hr 1X ONCE IV Last administered on 07/24/19at 13:34; Start 07/24/19 at 12:30; Stop 07/24/19 at 13:29; Status DC Diphenhydramine HCl (Benadryl) 25 mg 1X PRN PRN IV ITCHING; Start 07/24/19 at 12:30; Stop 07/25/19 at 12:29; Status DC Diphenhydramine HCl (Benadryl) 25 mg 1X PRN PRN IV ITCHING; Start 07/24/19 at 12:30; Stop 07/25/19 at 12:29; Status DC Info (PHARMACY MONITORING -- do not chart) 1 each PRN DAILY PRN MC SEE COMMENTS; Start 07/24/19 at 12:30; Status Cancel Bupivacaine HCl/ Epinephrine Bitart (Sensorcain-Epi 0.5%-1:[id number] Mpf) 30 ml STK-MED ONCE .ROUTE Last administered on 07/25/19at 11:44; Start 07/25/19 at 11:00; Stop 07/25/19 at 11:01; Status DC Cellulose (Surgicel Fibrillar 1x2) 1 each STK-MED ONCE .ROUTE ; Start 07/25/19 at 11:00; Stop 07/25/19 at 11:01; Status DC Sodium Chloride 90 meq/Potassium Chloride 15 meq/ Potassium Phosphate 10 mmol/ Magnesium Sulfate 12 meq/Calcium Gluconate 15 meq/ Multivitamins 10 ml/Chromium/ Copper/Manganese/ Seleni/Zn 0.5 ml/ Insulin Human Regular 25 unit/ Total Parenteral Nutrition/Amino Acids/Dextrose/ Fat Emulsion Intravenous 1,400 ml @ 58.333 mls/ hr TPN CONT IV Last administered on 07/25/19at 22:24; Start 07/25/19 at 22:00; Stop 07/26/19 at 21:59; Status DC Propofol 20 ml @ As Directed STK-MED ONCE IV ; Start 07/25/19 at 11:07; Stop 07/25/19 at 11:07; Status DC Cellulose (Surgicel Hemostat 4x8) 1 each STK-MED ONCE .ROUTE Last administered on 07/25/19at 11:44; Start 07/25/19 at 11:55; Stop 07/25/19 at 11:56; Status DC Sevoflurane (Ultane) 60 ml STK-MED ONCE IH ; Start 07/25/19 at 12:46; Stop at 12:46; Status DC Sodium Chloride 1,000 ml @ 1,000 mls/hr Q1H PRN IV hypotension; Start 07/25/19 at 13:51; Stop 07/25/19 at 19:50; Status DC Albumin Human 200 ml @ 200 mls/hr 1X PRN PRN IV Hypotension Last administered on 07/25/19at 14:51; Start 07/25/19 at 14:00; Stop 07/25/19 at 19:59; Status DC Diphenhydramine HCl (Benadryl) 25 mg 1X PRN PRN IV ITCHING; Start 07/25/19 at 14 :00; Stop 07/26/19 at 13:59; Status DC Diphenhydramine HCl (Benadryl) 25 mg 1X PRN PRN IV ITCHING; Start 07/25/19 at 14:00; Stop 07/26/19 at 13:59; Status DC Sodium Chloride 1,000 ml @ 400 mls/hr Q2H30M PRN IV PATENCY; Start 07/25/19 at 13:51; Stop 07/26/19 at 01:50; Status DC Info (PHARMACY MONITORING -- do not chart) 1 each PRN DAILY PRN MC SEE COMMENTS; Start 07/25/19 at 14:00; Stop 07/28/19 at 08:16; Status DC Heparin Sodium (Porcine) (Hep Lock Adult) 500 unit STK-MED ONCE IVP ; Start 07/26/19 at 09:29; Stop 07/26/19 at 09:30; Status DC Sodium Chloride 1,000 ml @ 1,000 mls/hr Q1H PRN IV hypotension; Start 07/26/19 at 10:43; Stop 07/26/19 at 16:42; Status DC Sodium Chloride 1,000 ml @ 400 mls/hr Q2H30M PRN IV PATENCY; Start 07/26/19 at 10:43; Stop 07/26/19 at 22:42; Status DC Info (PHARMACY MONITORING -- do not chart) 1 each PRN DAILY PRN MC SEE COMMENTS; Start 07/26/19 at 10:45; Status UNV Info (PHARMACY MONITORING -- do not chart) 1 each PRN DAILY PRN MC SEE COMMENTS; Start 07/26/19 at 10:45; Status UNV Sodium Chloride 90 meq/Potassium Chloride 15 meq/ Magnesium Sulfate 12 meq/Calcium Gluconate 15 meq/ Multivitamins 10 ml/Chromium/ Copper/Manganese/ Seleni/Zn 0.5 ml/ Insulin Human Regular 25 unit/ Total Parenteral Nutrition/Amino Acids/Dextrose/ Fat Emulsion Intravenous 1,400 ml @ 58.333 mls/ hr TPN CONT IV Last administered on 07/26/19at 22:13; Start 07/26/19 at 22:00; Stop 07/27/19 at 21:59; Status DC Sodium Chloride 1,000 ml @ 1,000 mls/hr Q1H PRN IV hypotension; Start 07/27/19 at 07:50; Stop 07/27/19 at 13:49; Status DC Albumin Human 200 ml @ 200 mls/hr 1X ONCE IV ; Start 07/27/19 at 08:00; Stop 07/27/19 at 08:53; Status DC Diphenhydramine HCl (Benadryl) 25 mg 1X PRN PRN IV ITCHING; Start 07/27/19 at 08:00; Stop 07/28/19 at 07:59; Status DC Diphenhydramine HCl (Benadryl) 25 mg 1X PRN PRN IV ITCHING; Start 07/27/19 at 08:00; Stop 07/28/19 at 07:59; Status DC Info (PHARMACY MONITORING -- do not chart) 1 each PRN DAILY PRN MC SEE COMMENTS; Start 07/27/19 at 08:00; Stop 07/28/19 at 08:16; Status DC Albumin Human 50 ml @ 50 mls/hr 1X ONCE IV ; Start 07/27/19 at 08:53; Stop 07/27/19 at 08:56; Status DC Albumin Human 200 ml @ 50 mls/hr PRN 1X PRN IV HYPOTENSION Last administered on 08/02/19at 11:54; Start 07/27/19 at 09:00 Meropenem 500 mg/ Sodium Chloride 50 ml @ 100 mls/hr Q12H IV Last administered on 08/16/19at 10:45; Start 07/27/19 at 10:00; Stop 08/16/19 at 12:37; Status DC Sodium Chloride 90 meq/Magnesium Sulfate 12 meq/ Calcium Gluconate 15 meq/ Multivitamins 10 ml/Chromium/ Copper/Manganese/ Seleni/Zn 0.5 ml/ Insulin Human Regular 25 unit/ Total Parenteral Nutrition/Amino Acids/Dextrose/ Fat Emulsion Intravenous 1,400 ml @ 58.333 mls/ hr TPN CONT IV Last administered on 07/27/19at 21:41; Start 07/27/19 at 22:00; Stop 07/28/19 at 21:59; Status DC Sodium Chloride 1,000 ml @ 1,000 mls/hr Q1H PRN IV hypotension; Start 07/28/19 at 07:58; Stop 07/28/19 at 13:57; Status DC Albumin Human 200 ml @ 200 mls/hr 1X PRN PRN IV Hypotension Last administered on 07/28/19at 09:30; Start 07/28/19 at 08:00; Stop 07/28/19 at 13:59; Status DC Sodium Chloride 1,000 ml @ 400 mls/hr Q2H30M PRN IV PATENCY; Start 07/28/19 at 07:58; Stop 07/28/19 at 19:57; Status DC Info (PHARMACY MONITORING -- do not chart) 1 each PRN DAILY PRN MC SEE COMMENTS; Start 07/28/19 at 08:00; Status Cancel Info (PHARMACY MONITORING -- do not chart) 1 each PRN DAILY PRN MC SEE COMMENTS; Start 07/28/19 at 08:15; Status UNV Sodium Chloride 90 meq/Potassium Phosphate 5 mmol/ Magnesium Sulfate 12 meq/Calcium Gluconate 15 meq/ Multivitamins 10 ml/Chromium/ Copper/Manganese/ Seleni/Zn 0.5 ml/ Insulin Human Regular 30 unit/ Total Parenteral Nutrition/Amino Acids/Dextrose/ Fat Emulsion Intravenous 1,400 ml @ 58.333 mls/ hr TPN CONT IV Last administered on 07/28/19at 22:08; Start 07/28/19 at 22:00; Stop 07/29/19 at 21:59; Status DC Linezolid/Dextrose 300 ml @ 300 mls/hr Q12HR IV Last administered on 08/08/19at 20:40; Start 07/29/19 at 11:00; Stop 08/09/19 at 08:10; Status DC Sodium Chloride 90 meq/Potassium Phosphate 15 mmol/ Magnesium Sulfate 12 meq/Calcium Gluconate 15 meq/ Multivitamins 10 ml/Chromium/ Copper/Manganese/ Seleni/Zn 0.5 ml/ Insulin Human Regular 30 unit/ Total Parenteral N utrition/Amino Acids/Dextrose/ Fat Emulsion Intravenous 1,400 ml @ 58.333 mls/ hr TPN CONT IV Last administered on 07/29/19at 21:49; Start 07/29/19 at 22:00; Stop 07/30/19 at 21:59; Status DC Sodium Chloride 90 meq/Potassium Phosphate 15 mmol/ Magnesium Sulfate 12 meq/Calcium Gluconate 15 meq/ Multivitamins 10 ml/Chromium/ Copper/Manganese/ Seleni/Zn 0.5 ml/ Insulin Human Regular 40 unit/ Total Parenteral Nutrition/Amino Acids/Dextrose/ Fat Emulsion Intravenous 1,400 ml @ 58.333 mls/ hr TPN CONT IV Last administered on 07/30/19at 21:21; Start 07/30/19 at 22:00; Stop 07/31/19 at 21:59; Status DC Sodium Chloride 1,000 ml @ 1,000 mls/hr Q1H PRN IV hypotension; Start 07/30/19 at 13:26; Stop 07/30/19 at 19:25; Status DC Albumin Human 200 ml @ 200 mls/hr 1X PRN PRN IV Hypotension Last administered on 07/30/19at 15:00; Start 07/30/19 at 13:30; Stop 07/30/19 at 19:29; Status DC Sodium Chloride (Normal Saline Flush) 10 ml 1X PRN PRN IV AP catheter pack; Start 07/30/19 at 13:30; Stop 07/31/19 at 13:29; Status DC Sodium Chloride (Normal Saline Flush) 10 ml 1X PRN PRN IV EVP MARKETING catheter pack; Start 07/30/19 at 13:30; Stop 07/31/19 at 13:29; Status DC Sodium Chloride 1,000 ml @ 400 mls/hr Q2H30M PRN IV PATENCY; Start 07/30/19 at 13:26; Stop 07/31/19 at 01:25; Status DC Info (PHARMACY MONITORING -- do not chart) 1 each PRN DAILY PRN MC SEE COMMENTS; Start 07/30/19 at 13:30; Stop 07/30/19 at 13:33; Status DC Info (PHARMACY MONITORING -- do not chart) 1 each PRN DAILY PRN MC SEE COMMENTS; Start 07/30/19 at 13:30; Stop 07/30/19 at 13:34; Status DC Sodium Chloride 90 meq/Potassium Phosphate 19 mmol/ Magnesium Sulfate 12 meq/Calcium Gluconate 15 meq/ Multivitamins 10 ml/Chromium/ Copper/Manganese/ Seleni/Zn 0.5 ml/ Insulin Human Regular 40 unit/ Total Parenteral Nu trition/Amino Acids/Dextrose/ Fat Emulsion Intravenous 1,400 ml @ 58.333 mls/ hr TPN CONT IV Last administered on 07/31/19at 21:54; Start 07/31/19 at 22:00; Stop 08/01/19 at 21:59; Status DC Sodium Chloride 1,000 ml @ 1,000 mls/hr Q1H PRN IV hypotension; Start 08/01/19 at 09:35; Stop 08/01/19 at 15:34; Status DC Albumin Human 200 ml @ 200 mls/hr 1X PRN PRN IV Hypotension; Start 08/01/19 at 09:45; Stop 08/01/19 at 15:44; Status DC Diphenhydramine HCl (Benadryl) 25 mg 1X PRN PRN IV ITCHING; Start 08/01/19 at 09:45; Stop 08/02/19 at 09:44; Status DC Diphenhydramine HCl (Benadryl) 25 mg 1X PRN PRN IV ITCHING; Start 08/01/19 at 09:45; Stop 08/02/19 at 09:44; Status DC Sodium Chloride 1,000 ml @ 400 mls/hr Q2H30M PRN IV PATENCY; Start 08/01/19 at 09:35; Stop 08/01/19 at 21:34; Status DC Info (PHARMACY MONITORING -- do not chart) 1 each PRN DAILY PRN MC SEE COMMENTS; Start 08/01/19 at 09:45; Status Cancel Sodium Chloride 100 meq/Potassium Phosphate 19 mmol/ Magnesium Sulfate 12 meq/Calcium Gluconate 15 meq/ Multivitamins 10 ml/Chromium/ Copper/Manganese/ Seleni/Zn 0.5 ml/ Insulin Human Regular 40 unit/ Potassium Chloride 20 meq/ Total Parenteral Nutrition/Amino Acids/Dextrose/ Fat Emulsion Intravenous 1,400 ml @ 58.333 mls/ hr TPN CONT IV Last administered on 08/01/19at 22:02; Start 08/01/19 at 22:00; Stop 08/02/19 at 21:59; Status DC Furosemide (Lasix) 40 mg 1X ONCE IVP Last administered on 08/01/19at 14:39; Start 08/01/19 at 14:30; Stop 08/01/19 at 14:31; Status DC Metronidazole 100 ml @ 100 mls/hr Q8HRS IV Last administered on 08/09/19at 06:04; Start 08/02/19 at 10:00; Stop 08/09/19 at 08:10; Status DC Sodium Chloride 1,000 ml @ 1,000 mls/hr Q1H PRN IV hypotension; Start 08/02/19 at 08:00; Stop 08/02/19 at 13:59; Status DC Albumin Human 200 ml @ 200 mls/hr 1X PRN PRN IV Hypotension; Start 08/02/19 at 08:00; Stop 08/02/19 at 13:59; Status DC Sodium Chloride 1,000 ml @ 400 mls/hr Q2H30M PRN IV PATENCY; Start 08/02/19 at 08:00; Stop 08/02/19 at 19:59; Status DC Info (PHARMACY MONITORING -- do not chart) 1 each PRN DAILY PRN MC SEE COMMENTS; Start 08/02/19 at 11:30; Status UNV Info (PHARMACY MONITORING -- do not chart) 1 each PRN DAILY PRN MC SEE COMMENTS; Start 08/02/19 at 11:30; Stop 08/04/19 at 12:13; Status DC Sodium Chloride 100 meq/Potassium Phosphate 19 mmol/ Magnesium Sulfate 12 meq/Calcium Gluconate 15 meq/ Multivitamins 10 ml/Chromium/ Copper/Manganese/ Seleni/Zn 0.5 ml/ Insulin Human Regular 40 unit/ Potassium Chloride 20 meq/ Total Parenteral Nutrition/Amino Acids/Dextrose/ Fat Emulsion Intravenous 1,400 ml @ 58.333 mls/ hr TPN CONT IV Last administered on 08/02/19at 21:52; Start 08/02/19 at 22:00; Stop 08/03/19 at 21:59; Status DC Sodium Chloride (Normal Saline Flush) 10 ml QSHIFT PRN IV AFTER MEDS AND BLOOD DRAWS; Start 08/02/19 at 15:00 Sodium Chloride (Normal Saline Flush) 10 ml PRN Q5MIN PRN IV AFTER MEDS AND BLOOD DRAWS; Start 08/02/19 at 15:00 Sodium Chloride (Normal Saline Flush) 20 ml PRN Q5MIN PRN IV AFTER MEDS AND BLOOD DRAWS; Start 08/02/19 at 15:00 Sodium Chloride 100 meq/Potassium Phosphate 19 mmol/ Magnesium Sulfate 12 meq/Calcium Gluconate 15 meq/ Multivitamins 10 ml/Chromium/ Copper/Manganese/ Seleni/Zn 0.5 ml/ Insulin Human Regular 40 unit/ Potassium Chloride 20 meq/ Total Parenteral Nutrition/Amino Acids/Dextrose/ Fat Emulsion Intravenous 1,400 ml @ 58.333 mls/ hr TPN CONT IV Last administered on 08/03/19at 21:20; Start 08/03/19 at 22:00; Stop 08/04/19 at 21:59; Status DC Lidocaine HCl (Buffered Lidocaine 1%) 3 ml STK-MED ONCE .ROUTE ; Start 08/03/19 at 13:16; Stop 08/03/19 at 13:16; Status DC Lidocaine HCl (Buffered Lidocaine 1%) 6 ml 1X ONCE INJ Last administered on 08/03/19at 13:45; Start 08/03/19 at 13:30; Stop 08/03/19 at 13:31; Status DC Albumin Human 100 ml @ 100 mls/hr 1X ONCE IV Last administered on 08/03/19at 15:41; Start 08/03/19 at 15:00; Stop 08/03/19 at 15:59; Status DC Albumin Human 50 ml @ 50 mls/hr 1X ONCE IV Last administered on 08/03/19at 15:00; Start 08/03/19 at 15:00; Stop 08/03/19 at 15:59; Status DC Info (PHARMACY MONITORING -- do not chart) 1 each PRN DAILY PRN MC SEE COMMENTS; Start 08/04/19 at 11:30; Status Cancel Info (PHARMACY MONITORING -- do not chart) 1 each PRN DAILY PRN MC SEE COMMENTS; Start 08/04/19 at 11:30; Status UNV Sodium Chloride 100 meq/Potassium Phosphate 10 mmol/ Magnesium Sulfate 12 meq/Calcium Gluconate 15 meq/ Multivitamins 10 ml/Chromium/ Copper/Manganese/ Seleni/Zn 0.5 ml/ Insulin Human Regular 35 unit/ Potassium Chloride 20 meq/ Total Parenteral Nutrition/Amino Acids/Dextrose/ Fat Emulsion Intravenous 1,400 ml @ 58.333 mls/ hr TPN CONT IV Last administered on 08/04/19at 22:10; Start 08/04/19 at 22:00; Stop 08/05/19 at 21:59; Status DC Sodium Chloride 100 meq/Potassium Phosphate 5 mmol/ Magnesium Sulfate 12 meq/Calcium Gluconate 15 meq/ Multivitamins 10 ml/Chromium/ Copper/Manganese/ Seleni/Zn 0.5 ml/ Insulin Human Regular 35 unit/ Potassium Chloride 20 meq/ Total Parenteral Nutrition/Amino Acids/Dextrose/ Fat Emulsion Intravenous 1,400 ml @ 58.333 mls/ hr TPN CONT IV Last administered on 08/05/19at 22:59; Start 08/05/19 at 22:00; Stop 08/06/19 at 21:59; Status DC Sodium Chloride 1,000 ml @ 1,000 mls/hr Q1H PRN IV hypotension; Start 08/06/19 at 08:27; Stop 08/06/19 at 14:26; Status DC Albumin Human 200 ml @ 200 mls/hr 1X PRN PRN IV Hypotension Last administered on 08/06/19at 09:18; Start 08/06/19 at 08:30; Stop 08/06/19 at 14:29; Status DC Sodium Chloride 1,000 ml @ 400 mls/hr Q2H30M PRN IV PATENCY; Start 08/06/19 at 08:27; Stop 08/06/19 at 20:26; Status DC Info (PHARMACY MONITORING -- do not chart) 1 each PRN DAILY PRN MC SEE COMMENTS; Start 08/06/19 at 08:30; Status Cancel Info (PHARMACY MONITORING -- do not chart) 1 each PRN DAILY PRN MC SEE COMMENTS; Start 08/06/19 at 08:30; Stop 08/14/19 at 13:10; Status DC Sodium Chloride 100 meq/Potassium Chloride 40 meq/ Magnesium Sulfate 15 meq/Calcium Gluconate 15 meq/ Multivitamins 10 ml/Chromium/ Copper/Manganese/ Seleni/Zn 0.5 ml/ Insulin Human Regular 35 unit/ Total Parenteral Nutrition/Amino Acids/Dextrose/ Fat Emulsion Intravenous 1,400 ml @ 58.333 mls/ hr TPN CONT IV Last administered on 08/06/19at 22:00; Start 08/06/19 at 22:00; Stop 08/07/19 at 21:59; Status DC Potassium Chloride/Water 100 ml @ 100 mls/hr 1X ONCE IV Last administered on 08/06/19at 17:28; Start 08/06/19 at 14:45; Stop 08/06/19 at 15:44; Status DC Sodium Chloride 100 meq/Potassium Chloride 40 meq/ Magnesium Sulfate 15 meq/Calcium Gluconate 15 meq/ Multivitamins 10 ml/Chromium/ Copper/Manganese/ Seleni/Zn 0.5 ml/ Insulin Human Regular 35 unit/ Total Parenteral Nutritio n/Amino Acids/Dextrose/ Fat Emulsion Intravenous 1,400 ml @ 58.333 mls/ hr TPN CONT IV Last administered on 08/07/19at 22:46; Start 08/07/19 at 22:00; Stop 08/08/19 at 21:59; Status DC Sodium Chloride 100 meq/Potassium Chloride 40 meq/ Magnesium Sulfate 20 meq/Calcium Gluconate 15 meq/ Multivitamins 10 ml/Chromium/ Copper/Manganese/ Seleni/Zn 0.5 ml/ Insulin Human Regular 35 unit/ Total Parenteral Nutrition/Amino Acids/Dextrose/ Fat Emulsion Intravenous 1,400 ml @ 58.333 mls/ hr TPN CONT IV Last administered on 08/08/19at 22:31; Start 08/08/19 at 22:00; Stop 08/09/19 at 21:59; Status DC Fentanyl Citrate (Fentanyl 2ml Vial) 50 mcg PRN Q2HR PRN IVP PAIN Last administered on 08/15/19at 13:32; Start 08/08/19 at 21:00; Stop 08/16/19 at 12:53; Status DC Fentanyl Citrate (Fentanyl 2ml Vial) 25 mcg PRN Q2HR PRN IVP PAIN; Start 08/08/19 at 21:00; Stop 08/16/19 at 12:54; Status DC Enoxaparin Sodium (Lovenox 100mg Syringe) 100 mg Q12HR SQ ; Start 08/09/19 at 21:00; Status UNV Amino Acids/ Glycerin/ Electrolytes 1,000 ml @ 75 mls/hr [id number] IV ; Start 08/08/19 at 21:15; Status UNV Sodium Chloride 1,000 ml @ 1,000 mls/hr Q1H PRN IV hypotension; Start 08/09/19 at 07:56; Stop 08/09/19 at 13:55; Status DC Albumin Human 200 ml @ 200 mls/hr 1X PRN PRN IV Hypotension Last administered on 08/09/19at 08:40; Start 08/09/19 at 08:00; Stop 08/09/19 at 13:59; Status DC Sodium Chloride 1,000 ml @ 400 mls/hr Q2H30M PRN IV PATENCY; Start 08/09/19 at 07:56; Stop 08/09/19 at 19:55; Status DC Info (PHARMACY MONITORING -- do not chart) 1 each PRN DAILY PRN MC SEE COMMENTS; Start 08/09/19 at 08:00; Status UNV Info (PHARMACY MONITORING -- do not chart) 1 each PRN DAILY PRN MC SEE COMMENTS; Start 08/09/19 at 08:00; Status UNV Daptomycin 430 mg/ Sodium Chloride 50 ml @ 100 mls/hr Q24H IV Last administered on 08/09/19at 12:35; Start 08/09/19 at 09:00; Stop 08/09/19 at 12:49; Status DC Sodium Chloride 100 meq/Potassium Chloride 40 meq/ Magnesium Sulfate 20 meq/Calcium Gluconate 15 meq/ Multivitamins 10 ml/Chromium/ Copper/Manganese/ Seleni/Zn 0.5 ml/ Insulin Human Regular 35 unit/ Total Parenteral Nutrition/Amino Acids/Dextrose/ Fat Emulsion Intravenous 1,400 ml @ 58.333 mls/ hr TPN CONT IV Last administered on 08/09/19at 21:26; Start 08/09/19 at 22:00; Stop 08/10/19 at 21:59; Status DC Daptomycin 430 mg/ Sodium Chloride 50 ml @ 100 mls/hr Q48H IV ; Start 08/11/19 at 09:00; Stop 08/10/19 at 11:55; Status DC Sodium Chloride 100 meq/Potassium Chloride 40 meq/ Magnesium Sulfate 20 meq/Calcium Gluconate 15 meq/ Multivitamins 10 ml/Chromium/ Copper/Manganese/ Seleni/Zn 0.5 ml/ Insulin Human Regular 35 unit/ Total Parenteral Nutrition/Amino Acids/Dextrose/ Fat Emulsion Intravenous 1,400 ml @ 58.333 mls/ hr TPN CONT IV Last administered on 08/10/19at 22:27; Start 08/10/19 at 22:00; Stop 08/11/19 at 21:59; Status DC Daptomycin 430 mg/ Sodium Chloride 50 ml @ 100 mls/hr Q24H IV Last administered on 08/12/19at 15:07; Start 08/10/19 at 13:00; Stop 08/13/19 at 13:15; Status DC Sodium Chloride 100 meq/Potassium Chloride 40 meq/ Magnesium Sulfate 20 meq/Calcium Gluconate 10 meq/ Multivitamins 10 ml/Chromium/ Copper/Manganese/ Seleni/Zn 0.5 ml/ Insulin Human Regular 35 unit/ Total Parenteral Nutrition/Amino Acids/Dextrose/ Fat Emulsion Intravenous 1,400 ml @ 58.333 mls/ hr TPN CONT IV Last administered on 08/12/19at 00:06; Start 08/11/19 at 22:00; Stop 08/12/19 at 21:59; Status DC Alteplase, Recombinant (Cathflo For Central Catheter Clearance) 1 mg 1X ONCE INT CAT Last administered on 08/12/19at 11:44; Start 08/12/19 at 10:45; Stop 08/12/19 at 10:46; Status DC Ondansetron HCl (Zofran) 4 mg PRN Q6HRS PRN IV NAUSEA/VOMITING; Start 08/15/19 at 07:00; Stop 08/16/19 at 06:59; Status DC Fentanyl Citrate (Fentanyl 2ml Vial) 25 mcg PRN Q5MIN PRN IV MILD PAIN 1-3; Start 08/15/19 at 07:00; Stop 08/16/19 at 06:59; Status DC Fentanyl Citrate (Fentanyl 2ml Vial) 50 mcg PRN Q5MIN PRN IV MODERATE TO SEVERE PAIN Last administered on 08/15/19at 10:17; Start 08/15/19 at 07:00; Stop 08/16/19 at 06:59; Status DC Ringer's Solution 1,000 ml @ 30 mls/hr Q24H IV ; Start 08/15/19 at 07:00; Stop 08/15/19 at 18:59; Status DC Lidocaine HCl (Xylocaine-Mpf 1% 2ml Vial) 2 ml PRN 1X PRN ID PRIOR TO IV START; Start 08/15/19 at 07:00; Stop 08/16/19 at 06:59; Status DC Prochlorperazine Edisylate (Compazine) 5 mg PACU PRN PRN IV NAUSEA, MRX1; Start 08/15/19 at 07:00; Stop 08/16/19 at 06:59; Status DC Sodium Acetate 50 meq/Potassium Acetate 55 meq/ Magnesium Sulfate 20 meq/Calcium Gluconate 10 meq/ Multivitamins 10 ml/Chromium/ Copper/Manganese/ Seleni/Zn 0.5 ml/ Insulin Human Regular 35 unit/ Total Parenteral Nutrition/Amino Acids/Dextrose/ Fat Emulsion Intravenous 1,400 ml @ 58.333 mls/ hr TPN CONT IV ; Start 08/12/19 at 22:00; Stop 08/12/19 at 14:15; Status DC Sodium Acetate 50 meq/Potassium Acetate 55 meq/ Magnesium Sulfate 20 meq/Calcium Gluconate 10 meq/ Multivitamins 10 ml/Chromium/ Copper/Manganese/ Seleni/Zn 0.5 ml/ Insulin Human Regular 35 unit/ Total Parenteral Nutrition/Amino Acids/Dextrose/ Fat Emulsion Intravenous 1,800 ml @ 75 mls/hr TPN CONT IV Last administered on 08/12/19at 22:38; Start 08/12/19 at 22:00; Stop 08/13/19 at 21:59; Status DC Sodium Chloride 1,000 ml @ 1,000 mls/hr Q1H PRN IV hypotension; Start 08/12/19 at 15:31; Stop 08/12/19 at 21:30; Status DC Diphenhydramine HCl (Benadryl) 25 mg 1X PRN PRN IV ITCHING; Start 08/12/19 at 15:45; Stop 08/13/19 at 15:44; Status DC Diphenhydramine HCl (Benadryl) 25 mg 1X PRN PRN IV ITCHING; Start 08/12/19 at 15:45; Stop 08/13/19 at 15:44; Status DC Sodium Chloride 1,000 ml @ 400 mls/hr Q2H30M PRN IV PATENCY; Start 08/12/19 at 15:31; Stop 08/13/19 at 03:30; Status DC Info (PHARMACY MONITORING -- do not chart) 1 each PRN DAILY PRN MC SEE COMMENTS; Start 08/12/19 at 15:45 Sodium Acetate 50 meq/Potassium Acetate 55 meq/ Magnesium Sulfate 20 meq/Calcium Gluconate 10 meq/ Multivitamins 10 ml/Chromium/ Copper/Manganese/ Seleni/Zn 0.5 ml/ Insulin Human Regular 35 unit/ Total Parenteral Nutrition/Amino Acids/Dextrose/ Fat Emulsion Intravenous 1,800 ml @ 75 mls/hr TPN CONT IV Last administered on 08/13/19at 22:03; Start 08/13/19 at 22:00; Stop 08/14/19 at 21:59; Status DC Daptomycin 430 mg/ Sodium Chloride 50 ml @ 100 mls/hr Q24H IV Last administered on 08/18/19at 13:00; Start 08/13/19 at 13:00; Stop 08/18/19 at 20:58; Status DC Heparin Sodium (Porcine) 1000 unit/Sodium Chloride 1,001 ml @ 1,001 mls/hr 1X ONCE IRR ; Start 08/15/19 at 06:00; Stop 08/15/19 at 06:59; Status DC Potassium Acetate 55 meq/Magnesium Sulfate 20 meq/ Calcium Gluconate 10 meq/ Multivitamins 10 ml/Chromium/ Copper/Manganese/ Seleni/Zn 0.5 ml/ Insulin Human Regular 35 unit/ Total Parenteral Nutrition/Amino Acids/Dextrose/ Fat Emulsion Intravenous 1,920 ml @ 80 mls/hr TPN CONT IV Last administered on 08/14/19at 22:10; Start 08/14/19 at 22:00; Stop 08/15/19 at 21:59; Status DC Dexamethasone Sodium Phosphate (Decadron) 4 mg STK-MED ONCE .ROUTE ; Start 08/15/19 at 10:56; Stop 08/15/19 at 10:57; Status DC Ondansetron HCl (Zofran) 4 mg STK-MED ONCE .ROUTE ; Start 08/15/19 at 10:56; Stop 08/15/19 at 10:57; Status DC Rocuronium [place] (Zemuron) 50 mg STK-MED ONCE .ROUTE ; Start 08/15/19 at 10:56; Stop 08/15/19 at 10:57; Status DC Fentanyl Citrate (Fentanyl 2ml Vial) 100 mcg STK-MED ONCE .ROUTE ; Start 08/15/19 at 10:56; Stop 08/15/19 at 10:57; Status DC Bupivacaine HCl/ Epinephrine Bitart (Sensorcain-Epi 0.5%-1:[id number] Mpf) 30 ml STK-MED ONCE .ROUTE Last administered on 08/15/19at 12:01; Start 08/15/19 at 10:58; Stop 08/15/19 at 10:58; Status DC Cellulose (Surgicel Hemostat 2x14) 1 each STK-MED ONCE .ROUTE ; Start 08/15/19 at 10:58; Stop 08/15/19 at 10:59; Status DC Iohexol (Omnipaque 300 Mg/ml) 50 ml STK-MED ONCE .ROUTE ; Start 08/15/19 at 10:58; Stop 08/15/19 at 10:59; Status DC Cellulose (Surgicel Hemostat 4x8) 1 each STK-MED ONCE .ROUTE ; Start 08/15/19 at 10:58; Stop 08/15/19 at 10:59; Status DC Bisacodyl (Dulcolax Supp) 10 mg STK-MED ONCE .ROUTE ; Start 08/15/19 at 10:59; Stop 08/15/19 at 10:59; Status DC Heparin Sodium (Porcine) 1000 unit/Sodium Chloride 1,001 ml @ 1,001 mls/hr 1X ONCE IRR ; Start 08/15/19 at 12:00; Stop 08/15/19 at 12:59; Status DC Propofol 20 ml @ As Directed STK-MED ONCE IV ; Start 08/15/19 at 11:05; Stop 08/15/19 at 11:05; Status DC Sevoflurane (Ultane) 90 ml STK-MED ONCE IH ; Start 08/15/19 at 11:05; Stop 08/15/19 at 11:05; Status DC Sevoflurane (Ultane) 60 ml STK-MED ONCE IH ; Start 08/15/19 at 12:26; Stop 08/15/19 at 12:27; Status DC Propofol 20 ml @ As Directed STK-MED ONCE IV ; Start 08/15/19 at 12:26; Stop 08/15/19 at 12:27; Status DC Phenylephrine HCl (PHENYLEPHRINE in 0.9% NACL PF) 1 mg STK-MED ONCE IV ; Start 08/15/19 at 12:34; Stop 08/15/19 at 12:34; Status DC Heparin Sodium (Porcine) (Heparin Sodium) 5,000 unit Q12HR SQ Last administered on 08/23/19at 22:04; Start 08/15/19 at 21:00 Sodium Chloride (Normal Saline Flush) 3 ml QSHIFT PRN IV AFTER MEDS AND BLOOD DRAWS; Start 08/15/19 at 13:45 Naloxone HCl (Narcan) 0.4 mg PRN Q2MIN PRN IV SEE INSTRUCTIONS; Start 08/15/19 at 13:45 Sodium Chloride 1,000 ml @ 25 mls/hr Q24H IV Last administered on 08/24/19at 13:59; Start 08/15/19 at 13:37 Naloxone HCl (Narcan) 0.4 mg PRN Q2MIN PRN IV SEE INSTRUCTIONS; Start 08/15/19 at 14:30; Status UNV Sodium Chloride 1,000 ml @ 25 mls/hr Q24H IV ; Start 08/15/19 at 14:30; Status UNV Hydromorphone HCl 30 ml @ 0 mls/hr CONT PRN PRN IV PER PROTOCOL Last a dministered on 08/20/19at 16:08; Start 08/15/19 at 14:30; Stop 08/22/19 at 08:55; Status DC Potassium Acetate 55 meq/Magnesium Sulfate 20 meq/ Calcium Gluconate 10 meq/ Multivitamins 10 ml/Chromium/ Copper/Manganese/ Seleni/Zn 0.5 ml/ Insulin Human Regular 35 unit/ Total Parenteral Nutrition/Amino Acids/Dextrose/ Fat Emulsion Intravenous 1,920 ml @ 80 mls/hr TPN CONT IV Last administered on 08/15/19at 22:01; Start 08/15/19 at 22:00; Stop 08/16/19 at 21:59; Status DC Bumetanide (Bumex) 2 mg [id number] IV Last administered on 08/19/19at 13:50; Start 08/16/19 at 14:00; Stop 08/20/19 at 14:10; Status DC Meropenem 1 gm/ Sodium Chloride 100 ml @ 200 mls/hr Q8HRS IV Last administered on 08/24/19at 13:55; Start 08/16/19 at 14:00 Potassium Acetate 55 meq/Magnesium Sulfate 20 meq/ Calcium Gluconate 10 meq/ Multivitamins 10 ml/Chromium/ Copper/Manganese/ Seleni/Zn 0.5 ml/ Insulin Human Regular 35 unit/ Total Parenteral Nutrition/Amino Acids/Dextrose/ Fat Emulsion Intravenous 1,920 ml @ 80 mls/hr TPN CONT IV Last administered on 08/16/19at 22:02; Start 08/16/19 at 22:00; Stop 08/17/19 at 21:59; Status DC Hydromorphone HCl (Dilaudid Standard [employer] MANAGER) 12 mg STK-MED ONCE IV ; Start 08/15/19 at 14:35; Stop 08/16/19 at 13:53; Status DC Artificial Tears (Artificial Tears) 1 drop PRN Q15MIN PRN OU DRY EYE Last administered on 08/23/19at 09:10; Start 08/17/19 at 05:30 Hydromorphone HCl (Dilaudid 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 [employer]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[employer]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) 12 mg STK-MED ONCE IV ; Start 08/16/19 at 12:05; Stop 08/17/19 at 09:15; Status DC Potassium Acetate 65 meq/Magnesium Sulfate 20 meq/ Calcium Gluconate 10 meq/ Multivitamins 10 ml/Chromium/ Copper/Manganese/ Seleni/Zn 0.5 ml/ Insulin Human Regular 30 unit/ Total Parenteral Nutrition/Amino Acids/Dextrose/ Fat Emulsion Intravenous 1,920 ml @ 80 mls/hr TPN CONT IV Last administered on 08/17/19at 22:22; Start 08/17/19 at 22:00; Stop 08/18/19 at 21:59; Status DC Cyclobenzaprine HCl (Flexeril) 10 mg PRN Q6HRS PRN PO MUSCLE SPASMS; Start 08/18/19 at 10:45 Potassium Acetate 55 meq/Magnesium Sulfate 20 meq/ Calcium Gluconate 10 meq/ Multivitamins 10 ml/Chromium/ Copper/Manganese/ Seleni/Zn 0.5 ml/ Insulin Human Regular 30 unit/ Total Parenteral Nutrition/Amino Acids/Dextrose/ Fat Emulsion Intravenous 1,920 ml @ 80 mls/hr TPN CONT IV Last administered on 08/19/19at 01:00; Start 08/18/19 at 22:00; Stop 08/19/19 at 21:59; Status DC Magnesium Sulfate 50 ml @ 25 mls/hr 1X ONCE IV Last administered on 08/18/19at 17:18; Start 08/18/19 at 12:45; Stop 08/18/19 at 14:44; Status DC Potassium Chloride/Water 100 ml @ 100 mls/hr 1X ONCE IV Last administered on 08/19/19at 11:27; Start 08/19/19 at 12:00; Stop 08/19/19 at 12:59; Status DC Hydromorphone HCl (Dilaudid Standard [employer]LYT[employer] MANAGER) 12 mg STK-MED ONCE IV ; Start 08/17/19 at 10:50; Stop 08/19/19 at 11:02; Status DC Hydromorphone HCl (Dilaudid Standard [employer]NALYT[employer] MANAGER) 12 mg STK-MED ONCE IV ; Start 08/18/19 at 13:47; Stop 08/19/19 at 11:03; Status DC Potassium Acetate 30 meq/Magnesium Sulfate 20 meq/ Calcium Gluconate 10 meq/ Multivitamins 10 ml/Chromium/ Copper/Manganese/ Seleni/Zn 0.5 ml/ Insulin Human Regular 30 unit/ Potassium Chloride 30 meq/ Total Parenteral Nutrition/Amino Acids/Dextrose/ Fat Emulsion Intravenous 1,920 ml @ 80 mls/hr TPN CONT IV Last administered on 08/19/19at 22:34; Start 08/19/19 at 22:00; Stop 08/20/19 at 21:59; Status DC Potassium Chloride/Water 100 ml @ 100 mls/hr Q1H IV Last administered on 08/20/19at 13:05; Start 08/20/19 at 07:00; Stop 08/20/19 at 10:59; Status DC Magnesium Sulfate 50 ml @ 25 mls/hr 1X ONCE IV Last administered on 08/20/19at 10:34; Start 08/20/19 at 10:30; Stop 08/20/19 at 12:29; Status DC Potassium Chloride 75 meq/ Magnesium Sulfate 20 meq/Calcium Gluconate 10 meq/ Multivitamins 10 ml/Chromium/ Copper/Manganese/ Seleni/Zn 0.5 ml/ Insulin Human Regular 30 unit/ Total Parenteral Nutrition/Amino Acids/Dextrose/ Fat Emulsion Intravenous 1,920 ml @ 80 mls/hr TPN CONT IV Last administered on 08/20/19at 21:51; Start 08/20/19 at 22:00; Stop 08/21/19 at 22:00; Status DC Potassium Chloride 75 meq/ Magnesium Sulfate 20 meq/Calcium Gluconate 10 meq/ Multivitamins 10 ml/Chromium/ Copper/Manganese/ Seleni/Zn 0.5 ml/ Insulin Human Regular 25 unit/ Total Parenteral Nutrition/Amino Acids/Dextrose/ Fat Emulsion Intravenous 1,920 ml @ 80 mls/hr TPN CONT IV Last administered on 08/21/19at 22:04; Start 08/21/19 at 22:00; Stop 08/22/19 at 21:59; Status DC Hydromorphone HCl (Dilaudid) 0.4 mg PRN Q4HRS PRN IVP PAIN Last administered on 08/22/19at 10:57; Start 08/22/19 at 09:00; Stop 08/22/19 at 18:59; Status DC Micafungin Sodium 100 mg/Dextrose 100 ml @ 100 mls/hr Q24H IV Last administered on 08/24/19at 10:44; Start 08/22/19 at 11:00 Daptomycin 485 mg/ Sodium Chloride 50 ml @ 100 mls/hr Q24H IV Last administered on 08/24/19at 09:51; Start 08/22/19 at 11:00 Potassium Chloride 75 meq/ Magnesium Sulfate 15 meq/Calcium Gluconate 8 meq/ Multivitamins 10 ml/Chromium/ Copper/Manganese/ Seleni/Zn 0.5 ml/ Insulin Human Regular 25 unit/ Total Parenteral Nutrition/Amino Acids/Dextrose/ Fat Emulsion Intravenous 1,920 ml @ 80 mls/hr TPN CONT IV Last administered on 08/22/19at 23:08; Start 08/22/19 at 22:00; Stop 08/23/19 at 21:59; Status DC Haloperidol Lactate (Haldol Inj) 3 mg 1X ONCE IVP Last administered on 08/22/19at 14:37; Start 08/22/19 at 14:30; Stop 08/22/19 at 14:31; Status DC Hydromorphone HCl (Dilaudid) 1 mg PRN Q4HRS PRN IVP PAIN Last administered on 08/24/19at 13:14; Start 08/22/19 at 19:00 Potassium Chloride 75 meq/ Magnesium Sulfate 15 meq/Calcium Gluconate 8 meq/ Multivitamins 10 ml/Chromium/ Copper/Manganese/ Seleni/Zn 0.5 ml/ Insulin Human Regular 20 unit/ Total Parenteral Nutrition/Amino Acids/Dextrose/ Fat Emulsion Intravenous 1,920 ml @ 80 mls/hr TPN CONT IV Last administered on 08/23/19at 22:10; Start 08/23/19 at 22:00; Stop 08/24/19 at 21:59 Lidocaine HCl (Buffered Lidocaine 1%) 3 ml STK-MED ONCE .ROUTE ; Start 08/24/19 at 11:31; Stop 08/24/19 at 11:31; Status DC Lidocaine HCl (Buffered Lidocaine 1%) 3 ml STK-MED ONCE .ROUTE ; Start 08/24/19 at 12:28; Stop 08/24/19 at 12:29; Status DC Lidocaine HCl (Buffered Lidocaine 1%) 6 ml 1X ONCE INJ Last administered on 08/24/19at 12:53; Start 08/24/19 at 12:45; Stop 08/24/19 at 12:46; Status DC Potassium Chloride 75 meq/ Magnesium Sulfate 15 meq/Calcium Gluconate 8 meq/ Multivitamins 10 ml/Chromium/ Copper/Manganese/ Seleni/Zn 0.5 ml/ Insulin Human Regular 20 unit/ Total Parenteral Nutrition/Amino Acids/Dextrose/ Fat Emulsion Intravenous 1,920 ml @ 80 mls/hr TPN CONT IV ; Start 08/24/19 at 22:00; Stop 08/25/19 at 21:59 Active Scripts Active Reported Bisoprolol Fumarate 5 Mg Tablet 10 Mg PO DAILY Vitals/I & O Vital Sign - Last 24 Hours 08/23/19 08/23/19 08/23/19 08/23/19 16:00 16:00 16:30 17:00 Pulse 102 108 Resp 32 16 32 B/P (MAP) 132/63 (86) 145/74 (97) Pulse Ox 99 99 99 O2 Delivery Tracheal Collar Trach Collar Tracheal Collar O2 Flow Rate 10.0 10.0 08/23/19 08/23/19 08/23/19 08/23/19 18:05 19:00 19:36 19:38 Temp 99.9 99.9 Pulse 125 126 Resp 41 42 40 B/P (MAP) 164/94 (117) 172/89 (116) Pulse Ox 100 98 100 99 O2 Delivery Tracheal Collar Tracheal Collar Tracheal Collar Tracheal Collar O2 Flow Rate 10.0 08/23/19 08/23/19 08/23/19 08/23/19 20:00 20:00 21:00 22:00 Temp 99.7 99.7 Pulse 118 122 122 Resp 30 30 35 B/P (MAP) 139/71 (93) 145/83 (103) 156/95 (115) Pulse Ox 97 95 92 O2 Delivery Trach Collar Tracheal Collar Tracheal Collar Tracheal Collar O2 Flow Rate 8.0 08/23/19 08/23/19 08/24/19 08/24/19 23:00 23:50 00:00 00:00 Temp 100.2 100.2 Pulse 122 126 Resp 37 36 B/P (MAP) 155/79 (104) 158/92 (114) Pulse Ox 95 100 95 O2 Delivery Tracheal Collar Tracheal Collar Trach Collar Tracheal Collar O2 Flow Rate 8.0 8.0 08/24/19 08/24/19 08/24/19 08/24/19 00:03 01:00 02:00 02:10 Pulse 134 120 Resp 33 32 30 B/P (MAP) 174/92 (119) 128/65 (86) Pulse Ox 94 93 94 98 O2 Delivery Tracheal Collar Tracheal Collar Tracheal Collar Ventilator O2 Flow Rate 8.0 08/24/19 08/24/19 08/24/19 08/24/19 03:00 04:00 04:00 04:15 Temp 99.9 99.9 Pulse 106 102 Resp 26 27 B/P (MAP) 112/64 (80) 119/59 (79) Pulse Ox 94 97 98 O2 Delivery Spontaneous Mechanical Ventilator Spontaneous Ventilator 08/24/19 08/24/19 08/24/19 08/24/19 05:00 06:00 06:53 07:00 Temp 101.5 101.5 Pulse 106 112 132 Resp 27 29 44 39 B/P (MAP) 131/59 (83) 140/77 (98) 158/80 (106) Pulse Ox 97 93 95 94 O2 Delivery Spontaneous Spontaneous Spontaneous Spontaneous 08/24/19 08/24/19 08/24/19 08/24/19 08:00 08:00 08:03 08:36 Pulse 100 Resp 21 20 B/P (MAP) 115/61 (79) Pulse Ox 97 96 97 O2 Delivery Mechanical Ventilator Spontaneous Ventilator Ventilator 08/24/19 08/24/19 08/24/19 08/24/19 09:00 10:00 10:00 11:00 Temp 98.4 98.4 Pulse 93 94 108 Resp 24 34 33 B/P (MAP) 117/64 (81) 90/65 (73) 160/80 (106) Pulse Ox 97 98 96 98 O2 Delivery Spontaneous Tracheal Collar Tracheal Collar Tracheal Collar O2 Flow Rate 8.0 8.0 8.0 08/24/19 08/24/19 08/24/19 08/24/19 11:32 11:41 11:50 12:00 Temp 98.4 98.8 98.4 98.8 Pulse 116 106 Resp 36 36 B/P (MAP) 160/80 162/71 (101) Pulse Ox 96 99 O2 Delivery Trach Collar Tracheal Collar Tracheal Collar O2 Flow Rate 8.0 8.0 8.0 08/24/19 08/24/19 08/24/19 08/24/19 12:05 13:00 13:05 13:14 Temp 98.8 99.0 98.8 99.0 Pulse 112 93 93 Resp 36 32 32 29 B/P (MAP) 162/71 115/60 (78) 115/60 Pulse Ox 97 99 O2 Delivery Ventilator O2 Flow Rate 8.0 08/24/19 08/24/19 08/24/19 08/24/19 13:47 14:00 14:01 15:00 Temp 98.4 98.4 Pulse 87 90 92 Resp 32 30 27 29 B/P (MAP) 102/59 (73) 109/52 110/65 (80) Pulse Ox 30 96 99 O2 Delivery Ventilator Ventilator Ventilator Intake and Output 08/23/19 08/23/19 08/24/19 15:00 23:00 07:00 Intake Total 100 ml 2216 ml 496 ml Output Total 630 ml 645 ml 905 ml Balance -530 ml 1571 ml -409 ml Hemodynamically unstable?: No Is patient in severe pain?: Yes Is NPO status required?: Yes NIELS MCGILL MD August 24, 2019 15:38
--- NOTE | 2019-08-24 16:22 | RAD ---
Ultrasound-guided paracentesis 08/24/2019 2:18 PM Procedure: The risks and benefits of the procedure were discussed the patient. Informed consent was obtained. A timeout procedure was performed. Sonographic evaluation of the abdomen was performed demonstrating ascites . Left lower quadrant was prepped and draped using maximum sterile barrier technique. 1% lidocaine without epinephrine was administered for local anesthesia. Real-time ultrasonographic guidance was used in passing a 5 [place] Yueh catheter into the fluid collection. 0.4 L of opaque, debris-containing ascites was removed. The catheter was removed and pressure held to achieve hemostasis. A sterile dressing was applied. Impression: Ultrasound-guided paracentesis
[2019-08-24 16:46] LABS: HEMATOCRIT 24.1 % (36.0-47.0); HEMOGLOBIN 7.8 g/dL (12.0-15.5)
[2019-08-24] MEDS ORDERED: [UNRECOGNIZED DRUG - OTHER] IV SCH ×9 (22:00)
[2019-08-24] MEDS ORDERED: TOTAL PARENTERAL NUTRITION IV SCH ×9 (22:00)
[2019-08-24] MEDS ORDERED: DEXTROSE 70% IV SCH ×9 (22:00)
[2019-08-24] MEDS ORDERED: AMINO ACID IV SCH ×9 (22:00)
[2019-08-25] VITALS (24 sets, daily range): BP systolic 95–179; BP diastolic 51–95
[2019-08-25] MEDS: HYDROmorphone 2 MG/ML VIAL IVP PRN ×4 (02:25→22:08)
[2019-08-25] MEDS: DEXMEDETOMIDINE 400 MCG in IV NORMAL SALINE 100ML 96 ML IV PRN ×5 (02:38→19:49)
[2019-08-25] MEDS: PROCHLORPERAZINE 10 MG/2 ML VIAL. IV PRN (03:57)
--- NOTE | 2019-08-25 04:34 | NUR ---
PT HAS HAD TO USE YONKUR TO SUCTION MODERATE AMOUNTS OF DARK GREEN EMESIS X 2. BOTH ZOFRAN AND COMPAZINE GIVEN AT DIFFERENT TIMES TO TRY AND ALLEVIATE VOMITING. PT IS NOW RESTING AFTER MEDICATION AND BOLUS OF PRECEDEX.
[2019-08-25 05:09] LABS: BASO % 0 % (0-3); EOS # 0.1 x10^3/uL (0.0-0.7); EOS % 1 % (0-3); HEMATOCRIT 21.9 % (36.0-47.0); HEMOGLOBIN 7.1 g/dL (12.0-15.5); LYMPH # 1.9 x10^3/uL (1.0-4.8); LYMPH % 21 % (24-48); MEAN CORPUSCULAR HEMOGLOBIN 29 pg (25-35); MEAN CORPUSCULAR HGB CONC 33 g/dL (31-37); MEAN CORPUSCULAR VOLUME 90 fL (79-100); MONO # 0.5 x10^3/uL (0.0-1.1); MONO % 5 % (0-9); NEUT # 6.6 x10^3/uL (1.8-7.7); NEUT % 73 % (31-73); PLATELET COUNT 382 x10^3/uL (140-400); RED BLOOD COUNT 2.44 x10^6/uL (3.50-5.40); RED CELL DISTRIBUTION WIDTH 17.5 % (11.5-14.5); WHITE BLOOD COUNT 9.1 x10^3/uL (4.0-11.0)
[2019-08-25 05:30] LABS: CALCIUM 8.4 mg/dL (8.5-10.1); GFR 58.9; PHOSPHORUS 3.3 mg/dL (2.6-4.7); POTASSIUM 4.2 mmol/L (3.5-5.1)
[2019-08-25] MEDS: INSULIN LISPRO 300 UNITS/3 ML VIAL. SQ SCH ×4 (05:48→18:04)
[2019-08-25] MEDS: MEROPENEM 1 GM in IV NORMAL SALINE 100ML 100 ML IV SCH ×3 (05:59→22:09)
[2019-08-25] MEDS: PANTOPRAZOLE IV PUSH 40 MG VIAL. IVP SCH (07:39)
[2019-08-25] MEDS: ONDANSETRON PF 4 MG/2 ML VIAL. IV PRN (08:07)
--- NOTE | 2019-08-25 08:12 | RAD ---
EXAM: Chest, single view. HISTORY: Shortness of air. COMPARISON: 08/15/2019 FINDINGS: A frontal view of the chest is obtained. There is stable diffuse central and lower lobe predominant infiltrate with small to moderate pleural effusions. The heart is normal in size. There is a right PICC with the tip in the superior right atrium. There is a tracheostomy device overlying the thoracic inlet. IMPRESSION: 1. Stable diffuse infiltrate and small moderate pleural effusions. 2. Right PICC with the tip in the superior right atrium. Electronically signed by: Sherlyn Martinez MD (08/25/2019 8:09 AM) [id number]
--- NOTE | 2019-08-25 08:23 | PDOC ---
PULMONARY PROGRESS NOTES Subjective Patient intubated on 07/10 , s/p trach 4/6, awake alert follows commands Patient off of mechanical support on trach shield Vitals Vital Signs Date Time Temp Pulse Resp B/P (MAP) Pulse Ox O2 Delivery O2 Flow Rate FiO2 08/25/19 07:11 98 Ventilator 08/25/19 07:00 82 32 116/65 (82) 08/25/19 04:00 98.6 98.6 08/25/19 04:00 30.0 ROS: No Nausea, No Chest Pain, No Abdominal Pain, No Increase Cough General: Alert, No acute distress HEENT: Other (nc at perrl nose clear nech trach site ok no lad no thyromegaly) Lungs: Crackles Cardiovascular: S1, S2 Abdomen: Soft, Non-tender, Other (firm) Neuro Exam: Alert Extremities: Other (+3 generalized edema ) Skin: Warm, Dry Labs Laboratory Tests Test 08/23/19 12:18 08/23/19 18:13 08/24/19 00:09 08/24/19 06:05 Glucose (Fingerstick) 147 mg/dL (70-99) 143 mg/dL (70-99) 151 mg/dL (70-99) White Blood Count 8.8 x10^3/uL (4.0-11.0) Red Blood Count 2.30 x10^6/uL (3.50-5.40) Hemoglobin 6.8 g/dL (12.0-15.5) Hematocrit 20.9 % (36.0-47.0) Mean Corpuscular Volume 91 fL (79-100) Mean Corpuscular Hemoglobin 29 pg (25-35) Mean Corpuscular Hemoglobin Concent 32 g/dL (31-37) Red Cell Distribution Width 18.8 % (11.5-14.5) Platelet Count 416 x10^3/uL (140-400) Neutrophils (%) (Auto) 70 % (31-73) Lymphocytes (%) (Auto) 21 % (24-48) Monocytes (%) (Auto) 6 % (0-9) Eosinophils (%) (Auto) 3 % (0-3) Basophils (%) (Auto) 0 % (0-3) Neutrophils # (Auto) 6.1 x10^3/uL (1.8-7.7) Lymphocytes # (Auto) 1.9 x10^3/uL (1.0-4.8) Monocytes # (Auto) 0.5 x10^3/uL (0.0-1.1) Eosinophils # (Auto) 0.2 x10^3/uL (0.0-0.7) Basophils # (Auto) 0.0 x10^3/uL (0.0-0.2) Sodium Level 152 mmol/L (136-145) Potassium Level 4.3 mmol/L (3.5-5.1) Chloride Level 113 mmol/L (98-107) Carbon Dioxide Level 31 mmol/L (21-32) Anion Gap 8 (6-14) Blood Urea Nitrogen 38 mg/dL (7-20) Creatinine 0.9 mg/dL (0.6-1.0) Estimated GFR (Cockcroft-Gault) 66.5 BUN/Creatinine Ratio 42 (6-20) Glucose Level 137 mg/dL (70-99) Calcium Level 9.0 mg/dL (8.5-10.1) Total Bilirubin 0.4 mg/dL (0.2-1.0) Aspartate Amino Transf (AST/SGOT) 35 U/L (15-37) Alanine Aminotransferase (ALT/SGPT) 30 U/L (14-59) Alkaline Phosphatase 84 U/L (46-116) Total Protein 5.6 g/dL (6.4-8.2) Albumin 1.8 g/dL (3.4-5.0) Albumin/Globulin Ratio 0.5 (1.0-1.7) Test 08/24/19 06:09 08/24/19 08:20 08/24/19 13:00 08/24/19 16:40 Glucose (Fingerstick) 128 mg/dL (70-99) 156 mg/dL (70-99) Hemoglobin 6.4 g/dL (12.0-15.5) 7.8 g/dL (12.0-15.5) Hematocrit 20.1 % (36.0-47.0) 24.1 % (36.0-47.0) Mean Corpuscular Hemoglobin Concent 32 g/dL (31-37) 32 g/dL (31-37) Test 08/24/19 17:30 5/7/20 00:09 08/25/19 05:00 Glucose (Fingerstick) 108 mg/dL (70-99) 100 mg/dL (70-99) 139 mg/dL (70-99) White Blood Count 9.1 x10^3/uL (4.0-11.0) Red Blood Count 2.44 x10^6/uL (3.50-5.40) Hemoglobin 7.1 g/dL (12.0-15.5) Hematocrit 21.9 % (36.0-47.0) Mean Corpuscular Volume 90 fL (79-100) Mean Corpuscular Hemoglobin 29 pg (25-35) Mean Corpuscular Hemoglobin Concent 33 g/dL (31-37) Red Cell Distribution Width 17.5 % (11.5-14.5) Platelet Count 382 x10^3/uL (140-400) Neutrophils (%) (Auto) 73 % (31-73) Lymphocytes (%) (Auto) 21 % (24-48) Monocytes (%) (Auto) 5 % (0-9) Eosinophils (%) (Auto) 1 % (0-3) Basophils (%) (Auto) 0 % (0-3) Neutrophils # (Auto) 6.6 x10^3/uL (1.8-7.7) Lymphocytes # (Auto) 1.9 x10^3/uL (1.0-4.8) Monocytes # (Auto) 0.5 x10^3/uL (0.0-1.1) Eosinophils # (Auto) 0.1 x10^3/uL (0.0-0.7) Basophils # (Auto) 0.0 x10^3/uL (0.0-0.2) Sodium Level 152 mmol/L (136-145) Potassium Level 4.2 mmol/L (3.5-5.1) Chloride Level 116 mmol/L (98-107) Carbon Dioxide Level 31 mmol/L (21-32) Anion Gap 5 (6-14) Blood Urea Nitrogen 39 mg/dL (7-20) Creatinine 1.0 mg/dL (0.6-1.0) Estimated GFR (Cockcroft-Gault) 58.9 Glucose Level 153 mg/dL (70-99) Calcium Level 8.4 mg/dL (8.5-10.1) Phosphorus Level 3.3 mg/dL (2.6-4.7) Magnesium Level 2.0 mg/dL (1.8-2.4) Laboratory Tests Test 08/24/19 13:00 08/24/19 16:40 08/24/19 17:30 08/25/19 00:09 Glucose (Fingerstick) 156 mg/dL (70-99) 108 mg/dL (70-99) 100 mg/dL (70-99) Hemoglobin 7.8 g/dL (12.0-15.5) Hematocrit 24.1 % (36.0-47.0) Mean Corpuscular Hemoglobin Concent 32 g/dL (31-37) Test 08/25/19 05:00 White Blood Count 9.1 x10^3/uL (4.0-11.0) Red Blood Count 2.44 x10^6/uL (3.50-5.40) Hemoglobin 7.1 g/dL (12.0-15.5) Hematocrit 21.9 % (36.0-47.0) Mean Corpuscular Volume 90 fL (79-100) Mean Corpuscular Hemoglobin 29 pg (25-35) Mean Corpuscular Hemoglobin Concent 33 g/dL (31-37) Red Cell Distribution Width 17.5 % (11.5-14.5) Platelet Count 382 x10^3/uL (140-400) Neutrophils (%) (Auto) 73 % (31-73) Lymphocytes (%) (Auto) 21 % (24-48) Monocytes (%) (Auto) 5 % (0-9) Eosinophils (%) (Auto) 1 % (0-3) Basophils (%) (Auto) 0 % (0-3) Neutrophils # (Auto) 6.6 x10^3/uL (1.8-7.7) Lymphocytes # (Auto) 1.9 x10^3/uL (1.0-4.8) Monocytes # (Auto) 0.5 x10^3/uL (0.0-1.1) Eosinophils # (Auto) 0.1 x10^3/uL (0.0-0.7) Basophils # (Auto) 0.0 x10^3/uL (0.0-0.2) Sodium Level 152 mmol/L (136-145) Potassium Level 4.2 mmol/L (3.5-5.1) Chloride Level 116 mmol/L (98-107) Carbon Dioxide Level 31 mmol/L (21-32) Anion Gap 5 (6-14) Blood Urea Nitrogen 39 mg/dL (7-20) Creatinine 1.0 mg/dL (0.6-1.0) Estimated GFR (Cockcroft-Gault) 58.9 Glucose Level 153 mg/dL (70-99) Glucose (Fingerstick) 139 mg/dL (70-99) Calcium Level 8.4 mg/dL (8.5-10.1) Phosphorus Level 3.3 mg/dL (2.6-4.7) Magnesium Level 2.0 mg/dL (1.8-2.4) Medications Active Scripts Medications Dose Route/Sig Max Daily Dose Days Date Category Bisoprolol Fumarate 5 Mg Tablet 10 Mg PO DAILY 07/04/19 Reported Impression . IMPRESSION: 1. Acute hypoxemic respiratory failure secondary to ARDS status post trach, 2. Gallstone pancreatitis 3. Severe metabolic acidosis.stable 4. Acute kidney injury-stable, ON HD-- continue to improve 5. Acute gallstone pancreatitis. 6. Hypoalbuminemia. 7. Moderate persistent effusions 8. Fever- Per ID, per surgery 9. Chronic anemia 10. Covid 19 testing negative 11. Moderate to large ascites-S/P paracentisis 12.S/P paracentisis with 4 liters removed on 08/03/19 Surgery note Operative Note: After obtaining informed consent, patient was taken to OR, induced under GETA and prepped in the usual fashion. 5 mm port placed umbilical and right mid abdomen, all under laparoscopic guidance. Large amount of ascites encountered and aspirated off. Fluid was clear with some whitish debris. Viscera was completely locked in with obliteration of all planes, preventing any significant exploration. Copious irrigation. Given patient's overall clinical improvement, favor against open procedure and attempt at cholecystectomy and/or necrosectomy, given high risk of complications. Cholecystectomy will need to be performed, but favor waiting 3 months. 19 KAYLIN drain placed and secured with 3 0 nylon. Skin repaired with 4 0 monocryl. Dressing placed. Patient tolerated procedure well and sent to PACU in stable condition. All counts correct. Wound class is 4. Plan . Continue trach shield up to chair, physical therapy. Trach shield precedex for anxiety, prn, avoid excessive sedation Follow surgery input Follow ID rec, abx per id Follow nephrology recs Nutritional support per surgery: continue TPN for nutrition DVT/GI PPX : heparin Sq/ protonix d/w RN/RT CODE:FULL HARMEET BEE MD August 25, 2019 08:23
--- NOTE | 2019-08-25 08:50 | PDOC ---
Infectious Disease Note Subjective Subjective Has been vomiting and needs NGT S/p Dilaudid and non responsive - Precedex on trach with vent Discussed with RN ADITI PENNINGTON unable to obtain Vital Sign Vital Signs Vital Signs Date Time Temp Pulse Resp B/P (MAP) Pulse Ox O2 Delivery O2 Flow Rate FiO2 08/25/19 08:39 18 98 Ventilator 08/25/19 07:00 82 116/65 (82) 08/25/19 04:00 98.6 98.6 08/25/19 04:00 30.0 Physical Exam PHYSICAL EXAM GENERAL: Propped up in bed. Nonresponsive s/p meds HEENT: oral cavity dry NECK: Trach/vent LUNGS: rhonchi HEART: S1, S2, regular ABDOMEN: Distended, hypoactive BS, drain placement (08/14 - serous fluid) : Lind (08/01) EXTREMITIES: Generalized edema, no cyanosis, SCDs bilaterally DERMATOLOGIC: Warm and dry. No generalized rash. CENTRAL NERVOUS SYSTEM: weak, mouthing words to simple questions PICC line in place August 18, 2019 clean HDC has been removed LIJ removed Labs Lab Laboratory Tests Test 08/24/19 13:00 08/24/19 16:40 08/24/19 17:30 08/25/19 00:09 Glucose (Fingerstick) 156 mg/dL (70-99) 108 mg/dL (70-99) 100 mg/dL (70-99) Hemoglobin 7.8 g/dL (12.0-15.5) Hematocrit 24.1 % (36.0-47.0) Mean Corpuscular Hemoglobin Concent 32 g/dL (31-37) Test 08/25/19 05:00 White Blood Count 9.1 x10^3/uL (4.0-11.0) Red Blood Count 2.44 x10^6/uL (3.50-5.40) Hemoglobin 7.1 g/dL (12.0-15.5) Hematocrit 21.9 % (36.0-47.0) Mean Corpuscular Volume 90 fL (79-100) Mean Corpuscular Hemoglobin 29 pg (25-35) Mean Corpuscular Hemoglobin Concent 33 g/dL (31-37) Red Cell Distribution Width 17.5 % (11.5-14.5) Platelet Count 382 x10^3/uL (140-400) Neutrophils (%) (Auto) 73 % (31-73) Lymphocytes (%) (Auto) 21 % (24-48) Monocytes (%) (Auto) 5 % (0-9) Eosinophils (%) (Auto) 1 % (0-3) Basophils (%) (Auto) 0 % (0-3) Neutrophils # (Auto) 6.6 x10^3/uL (1.8-7.7) Lymphocytes # (Auto) 1.9 x10^3/uL (1.0-4.8) Monocytes # (Auto) 0.5 x10^3/uL (0.0-1.1) Eosinophils # (Auto) 0.1 x10^3/uL (0.0-0.7) Basophils # (Auto) 0.0 x10^3/uL (0.0-0.2) Sodium Level 152 mmol/L (136-145) Potassium Level 4.2 mmol/L (3.5-5.1) Chloride Level 116 mmol/L (98-107) Carbon Dioxide Level 31 mmol/L (21-32) Anion Gap 5 (6-14) Blood Urea Nitrogen 39 mg/dL (7-20) Creatinine 1.0 mg/dL (0.6-1.0) Estimated GFR (Cockcroft-Gault) 58.9 Glucose Level 153 mg/dL (70-99) Glucose (Fingerstick) 139 mg/dL (70-99) Calcium Level 8.4 mg/dL (8.5-10.1) Phosphorus Level 3.3 mg/dL (2.6-4.7) Magnesium Level 2.0 mg/dL (1.8-2.4) Micro U/S 08/21 IMPRESSION: Complex fluid collections within the right and lower quadrants. The abdominal visceral and vascular structures are not formally assessed on this exam. CT Scan 08/21 IMPRESSION: 1. Findings consistent with sequelae of severe acute pancreatitis with enlarging peripancreatic and intra-abdominal fluid collections as described 2. Interval placement of a drain in the ventral abdominal wall with and partial evacuation of the ventral extraperitoneal fluid collection previously evident. 08/14 Operative Note: After obtaining informed consent, patient was taken to OR, induced under GETA and prepped in the usual fashion. 5 mm port placed umbilical and right mid abdomen, all under laparoscopic guidance. Large amount of ascites encountered and aspirated off. Fluid was clear with some whitish debris. Viscera was completely locked in with obliteration of all planes, preventing any significant exploration. Copious irrigation. Given patient's overall clinical improvement, favor against open procedure and attempt at cholecystectomy and/or necrosectomy, given high risk of complications. Cholecystectomy will need to be performed, but favor waiting 3 months. 19 KAYLIN drain placed and secured with 3 0 nylon. Skin repaired with 4 0 monocryl. Dressing placed. Patient tolerated procedure well and sent to PACU in stable condition. All counts correct. Wound class is 4. CT Chest Abd/pelv 08/01 CT CHEST: CT scan the chest was done without contrast. There is a tracheostomy tube in good position. There are large bilateral pleural effusions. There is atelectasis in both lung bases. There is no mediastinal adenopathy. Right arm PICC line extends to the superior vena cava. There is a temporary dialysis catheter extending to the vena cava near the atrium. IMPRESSION: 1. Large bilateral effusions. 2. Atelectasis of both lungs. End impression CT abdomen pelvis CT scan the abdomen pelvis was done following CT chest with contrast. NG tube extends into the stomach. Spleen is normal. There is no mass or hydronephrosis in the kidneys. There is a gallstone the gallbladder. A focal liver lesion is not identified. There is diffuse necrosis of the pancreas. There is peripancreatic fluid. The pattern is similar to the recent study. There is fluid in the paracolic gutters. There is retroperitoneal fluid surrounding the kidneys. Ascites extends into the pelvis. Ascites is similar to the prior study. There is no bowel obstruction. There is no free air. IMPRESSION: 1. Diffuse pancreatic necrosis. 2. A extensive retroperitoneal fluid and inflammation. 3. Cholelithiasis. 4. Moderate to large volume ascites with little change. CT A/P, 07/27 IMPRESSION: 1. Increased ascites. 2. 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 Cholelithiasis with thickening of the gallbladder wall. 4. Persistent pleural effusions and atelectasis in the lung bases. Objective Assessment Fever - better currently - intermittent could be from underlying pancreatitis blood cults 08/21 - neg so far ? Ileus with vomiting Abd distention - U/S and CT reviewed s/p 0.4 L of opaque, debris-containing ascites was removed 08/23 Acute pancreatitis with persistent necrosis CT a/p 07/27 Increased ascites. Persistent evidence of necrotizing pancreatitis with fluid and phlegmon at the pancreas 08/14 status post KAYLIN drain placement - yeast on cult; Cult line tip 08/17 - neg Anemia Cholelithiasis with thickening of the gallbladder wall. Leucocytosis improving JUANA,Hyperkalemia, Metabolic acidosis off dialysis Acute hypoxic resp failure ,bilateral pleural effusion and atelectasis hypocalcemia Prediabetes HTN s/p trach Plan Plan of Care Appreciate IR for abd fluid drainage given fever and discomfort 08/23 NGT to be placed with vomiting today Labs in am F/u cults from 08/23 abd Blood cult times 2 - 08/21 neg so far Added Micafungin 08/21 with yeast from 08/14 abd cult will have it worked up and sensitivity Dose Dapto 08/21 cont merrem (07/26) - try to wean soon but await cults 08/23 Electrolytes per primary Anemia per primary Maintain aspiration precaution PT and OT as tolerated Continue supportive care D/w nursing WILLY BARAKAT MD August 25, 2019 08:50
--- NOTE | 2019-08-25 09:35 | NUR ---
Patient vomited moderate amount of green bile at 0830 approx 100ml. Vomited moderate amount earlier this morning per [employer] shift supervisor nurse. Dr Servin notified, order to place NG to LIS. NG placed per air bolus, and return of gastric content. Zofran given. Patient in no apparent distress, will monitor.
--- NOTE | 2019-08-25 10:41 | PDOC ---
Subjective: Subjective: Pretty drowsy after Dilaudid. Objective: Objective: D/w nurse - discussed vomiting w/ Dr. Servin, plans to retry NG placement. Vital Signs: Vital Signs Date Time Temp Pulse Resp B/P (MAP) Pulse Ox O2 Delivery O2 Flow Rate FiO2 08/25/19 09:50 97 Ventilator 08/25/19 08:39 18 08/25/19 07:00 82 116/65 (82) 08/25/19 04:00 98.6 98.6 08/25/19 04:00 30.0 Labs: Laboratory Tests Test 08/24/19 13:00 08/24/19 17:30 08/25/19 00:09 08/25/19 05:00 Glucose (Fingerstick) 156 mg/dL (70-99) 108 mg/dL (70-99) 100 mg/dL (70-99) 139 mg/dL (70-99) BLOOD CULTURE Preliminary NO GROWTH AFTER 2 DAYS Imaging: Paracentesis 08/23 0.4 L of opaque, debris-containing ascites CXR 08/24 IMPRESSION: 1. Stable diffuse infiltrate and small moderate pleural effusions. 2. Right PICC with the tip in the superior right atrium. KUB 08/24 pending PE: GEN: NAD LUNGS: trach HEART: RRR ABD: distended NEURO/PSYCH: briefly opens eyes A/P: Gallstone pancreatitis, MOSF Vomiting Anemia - stable Hypernatremia -- Trying NG placement again. Hemodynamically unstable?: No Is patient in severe pain?: Yes Is NPO status required?: Yes CYNDEE FALCON August 25, 2019 10:40
--- NOTE | 2019-08-25 10:46 | RAD ---
EXAM: Abdomen, single view. HISTORY: Nasogastric tube placement. COMPARISON: 08/22/2019 FINDINGS: A view of the stomach is obtained. There is a nasogastric tube within the stomach. There are prominent air-filled bowel throughout the abdomen. The lung bases are excluded from the [id number]. IMPRESSION: Nasogastric tube within the stomach. Electronically signed by: Sherlyn Martinez MD (08/25/2019 10:43 AM) [id number]
[2019-08-25] MEDS: DAPTOMYCIN IV SCH (11:29)
[2019-08-25] MEDS: NORMAL SALINE IV SCH (11:29)
--- NOTE | 2019-08-25 11:37 | PDOC ---
SUBJECTIVE ROS Vomiting OBJECTIVE Vital Signs Vital Signs Date Time Temp Pulse Resp B/P (MAP) Pulse Ox O2 Delivery O2 Flow Rate FiO2 08/25/19 11:10 98 Ventilator 08/25/19 10:00 82 25 117/73 (88) 08/25/19 08:00 99.3 99.3 08/25/19 04:00 30.0 I & 0 Intake and Output 08/25/19 07:00 Intake Total 2453.05 ml Output Total 2135 ml Balance 318.05 ml Intake Oral 0 ml IV Total 1793.05 ml Blood Product IV Normal Saline Flush 660 ml Output Urine Total 1680 ml Drainage Total 430 ml Other 25 ml PHYSICAL EXAM Physical Exam GENERAL: NAD HEENT: oral cavity dry NECK: Trach/vent LUNGS: Non labored HEART: S1, S2, regular ABDOMEN: Distended, hypoactive BS, drain placement (08/14 ) : Lind EXTREMITIES: Generalized edema, DERMATOLOGIC: No generalized rash. DIAGNOSIS/ASSESSMENT Assessment & Plan ARF-- ATN,requiring CRRT and HD Off HD, renal function improved currently on TPN,, avoid nephrotoxins CT 08/21-? Developing right grade 2 hydronephrosis. 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 Moderate pleural effusions, may be slightly improved. Infiltrate/atelectasis in both lung bases. Ascites - post paracentesis in the past s/p paracentesis 08/23 Acute hypoxic resp failure ,bilateral pleural effusion Trach in place, HTN COVID-19 neg, 07/13 COMMENT/RELEVANT DATA Meds Current Medications Medications (Trade) Dose Ordered Sig/Yvon Start Time Stop Time Status Last Admin Dose Admin Acetaminophen (Tylenol Supp) 650 mg PRN Q6HRS PRN 07/12/19 10:30 08/23/19 09:12 650 MG Acetaminophen (Tylenol) 650 mg PRN Q6HRS PRN 07/09/19 03:36 08/04/19 19:56 650 MG Albumin Human 200 ml @ 200 mls/hr 1X PRN PRN 08/09/19 08:00 08/09/19 13:59 DC 08/09/19 08:40 200 MLS/HR Albuterol Sulfate (Ventolin Neb Soln) 2.5 mg 1X ONCE 07/05/19 22:30 07/05/19 22:31 DC 07/06/19 00:56 2.5 MG Alteplase, Recombinant (Cathflo For Central Catheter Clearance) 1 mg 1X ONCE 08/12/19 10:45 08/12/19 10:46 DC 08/12/19 11:44 1 MG Amino Acids/ Glycerin/ Electrolytes 1,000 ml @ 75 mls/hr [id number] 08/08/19 21:15 UNV Artificial Tears (Artificial Tears) 1 drop PRN Q15MIN PRN 08/17/19 05:30 08/23/19 09:10 1 DROP Atenolol (Tenormin) 100 mg DAILY 07/05/19 09:00 07/04/19 20:08 DC Atropine Sulfate (ATROPINE 0.5mg SYRINGE) 0.5 mg PRN Q5MIN PRN 07/21/19 08:15 Benzocaine (Hurricaine One) 1 spray 1X ONCE 07/08/19 14:30 07/08/19 14:31 DC 07/08/19 16:38 1 SPRAY Bisacodyl (Dulcolax Supp) 10 mg STK-MED ONCE 08/15/19 10:59 08/15/19 10:59 DC Bumetanide (Bumex) 2 mg [id number] 08/16/19 14:00 08/20/19 14:10 DC 08/19/19 13:50 2 MG Bupivacaine HCl/ Epinephrine Bitart (Sensorcain-Epi 0.5%-1:325814 Mpf) 30 ml STK-MED ONCE 08/15/19 10:58 08/15/19 10:58 DC 08/15/19 12:01 7 ML Calcium Carbonate/ Glycine (Tums) 500 mg PRN [id number] PRN 07/06/19 17:45 Calcium Chloride 1000 mg/Sodium Chloride 110 ml @ 220 mls/hr 1X ONCE 07/05/19 22:30 07/05/19 22:59 DC 07/05/19 22:11 220 MLS/HR Calcium Chloride 3000 mg/Sodium Chloride 1,030 ml @ 50 mls/hr [id number] 07/07/19 08:00 07/09/19 15:23 DC 07/09/19 02:17 50 MLS/HR Calcium Gluconate (Calcium Gluconate) 2,000 mg 1X ONCE 07/07/19 02:15 07/07/19 02:16 DC 07/07/19 02:19 2,000 MG Calcium Gluconate 1000 mg/Sodium Chloride 110 ml @ 220 mls/hr 1X ONCE 07/06/19 03:30 07/06/19 03:59 DC 07/06/19 03:21 220 MLS/HR Calcium Gluconate 2000 mg/Sodium Chloride 120 ml @ 220 mls/hr 1X ONCE 07/06/19 07:30 07/06/19 08:02 DC 07/06/19 09:05 220 MLS/HR Cefepime HCl (Maxipime) 2 gm Q12HR 07/13/19 09:00 07/27/19 09:58 DC 07/26/19 20:56 2 GM Cellulose (Surgicel Fibrillar 1x2) 1 each STK-MED ONCE 07/25/19 11:00 07/25/19 11:01 DC Cellulose (Surgicel Hemostat 2x14) 1 each STK-MED ONCE 08/15/19 10:58 08/15/19 10:59 DC Cellulose (Surgicel Hemostat 4x8) 1 each STK-MED ONCE 08/15/19 10:58 08/15/19 10:59 DC Cyclobenzaprine HCl (Flexeril) 10 mg PRN Q6HRS PRN 08/18/19 10:45 Daptomycin 430 mg/ Sodium Chloride 50 ml @ 100 mls/hr Q24H 08/13/19 13:00 08/18/19 20:58 DC 08/18/19 13:00 100 MLS/HR Daptomycin 485 mg/ Sodium Chloride 50 ml @ 100 mls/hr Q24H 08/22/19 11:00 08/24/19 09:51 100 MLS/HR Daptomycin 500 mg/ Sodium Chloride 50 ml @ 100 mls/hr Q48H 07/13/19 08:30 07/29/19 10:07 DC 07/29/19 09:57 100 MLS/HR Dexamethasone Sodium Phosphate (Decadron) 4 mg STK-MED ONCE 08/15/19 10:56 08/15/19 10:57 DC Dexmedetomidine HCl 400 mcg/ Sodium Chloride 100 ml @ 0 mls/hr CONT PRN 07/21/19 08:15 08/25/19 07:40 16.7 MLS/HR Dextrose (Dextrose 50%-Water Syringe) 12.5 gm PRN Q15MIN PRN 07/04/19 09:30 Digoxin (Lanoxin) 125 mcg 1X ONCE 07/07/19 18:00 07/07/19 18:01 DC 07/07/19 17:10 125 MCG Diphenhydramine HCl (Benadryl) 25 mg 1X PRN PRN 08/12/19 15:45 08/13/19 15:44 DC Enoxaparin Sodium (Lovenox 100mg Syringe) 100 mg Q12HR 08/09/19 21:00 UNV Etomidate (Amidate) 8 mg 1X ONCE 07/11/19 08:30 07/11/19 08:31 DC 07/11/19 08:33 8 MG Fentanyl Citrate (Fentanyl 2ml Vial) 100 mcg STK-MED ONCE 08/15/19 10:56 08/15/19 10:57 DC Furosemide (Lasix) 40 mg 1X ONCE 08/01/19 14:30 08/01/19 14:31 DC 08/01/19 14:39 40 MG Haloperidol Lactate (Haldol Inj) 3 mg 1X ONCE 08/22/19 14:30 08/22/19 14:31 DC 08/22/19 14:37 3 MG Heparin Sodium (Porcine) (Hep Lock Adult) 500 unit STK-MED ONCE 07/26/19 09:29 07/26/19 09:30 DC Heparin Sodium (Porcine) (Heparin Sodium) 5,000 unit Q12HR 08/15/19 21:00 08/25/19 09:59 DC 08/24/19 20:57 5,000 UNIT Heparin Sodium (Porcine) 1000 unit/Sodium Chloride 1,001 ml @ 1,001 mls/hr 1X ONCE 08/15/19 12:00 08/15/19 12:59 DC Hydromorphone HCl (Dilaudid Standard [employer]) 12 mg STK-MED ONCE 08/18/19 13:47 08/19/19 11:03 DC Hydromorphone HCl (Dilaudid) 1 mg PRN Q4HRS PRN 08/22/19 19:00 08/25/19 08:39 1 MG Info (CONTRAST GIVEN -- Rx MONITORING) 1 each PRN DAILY PRN 07/18/19 11:45 07/20/19 11:44 DC Info (Icu Electrolyte Protocol) 1 ea CONT PRN PRN 07/17/19 13:15 Info (PHARMACY MONITORING -- do not chart) 1 each PRN DAILY PRN 08/12/19 15:45 Info (Tpn Per Pharmacy) 1 each PRN DAILY PRN 07/06/19 12:30 UNV Insulin Human Lispro (HumaLOG) 0-9 UNITS Q6HRS 07/04/19 09:30 08/24/19 13:12 4 UNITS Insulin Human Regular (HumuLIN R VIAL) 5 unit 1X ONCE 07/05/19 22:30 07/05/19 22:31 DC 07/05/19 22:14 5 UNIT Iohexol (Omnipaque 240 Mg/ml) 30 ml 1X ONCE 07/18/19 11:30 07/18/19 11:33 DC 07/18/19 11:30 30 ML Iohexol (Omnipaque 300 Mg/ml) 50 ml STK-MED ONCE 08/15/19 10:58 08/15/19 10:59 DC Iohexol (Omnipaque 350 Mg/ml) 90 ml 1X ONCE 07/04/19 03:30 07/04/19 03:31 DC 07/04/19 03:25 90 ML Ketorolac Tromethamine (Toradol 30mg Vial) 30 mg 1X ONCE 07/04/19 03:00 07/04/19 03:01 DC 07/04/19 02:54 30 MG Lidocaine HCl (Buffered Lidocaine 1%) 6 ml 1X ONCE 08/24/19 12:45 08/24/19 12:46 DC 08/24/19 12:53 6 ML Lidocaine HCl (Glydo (Lidocaine) Jelly) 1 ramu 1X ONCE 07/08/19 14:30 07/08/19 14:31 DC 07/08/19 16:38 1 RAMU Lidocaine HCl (Xylocaine-Mpf 1% 2ml Vial) 2 ml PRN 1X PRN 08/15/19 07:00 4/28/20 06:59 DC Linezolid/Dextrose 300 ml @ 300 mls/hr Q12HR 07/29/19 11:00 08/09/19 08:10 DC 08/08/19 20:40 300 MLS/HR Lorazepam (Ativan Inj) 1 mg PRN Q4HRS PRN 07/07/19 09:00 08/05/19 09:19 DC 08/05/19 03:51 1 MG Magnesium Sulfate 50 ml @ 25 mls/hr 1X ONCE 08/20/19 10:30 08/20/19 12:29 DC 08/20/19 10:34 25 MLS/HR Meropenem 1 gm/ Sodium Chloride 100 ml @ 200 mls/hr Q8HRS 08/16/19 14:00 08/25/19 05:59 200 MLS/HR Meropenem 500 mg/ Sodium Chloride 50 ml @ 100 mls/hr Q12H 07/27/19 10:00 08/16/19 12:37 DC 08/16/19 10:45 100 MLS/HR Metoprolol Tartrate (Lopressor Vial) 5 mg Q6HRS 07/05/19 10:15 07/16/19 08:48 DC 07/14/19 00:12 5 MG Metronidazole 100 ml @ 100 mls/hr Q8HRS 08/02/19 10:00 08/09/19 08:10 DC 08/09/19 06:04 100 MLS/HR Micafungin Sodium 100 mg/Dextrose 100 ml @ 100 mls/hr Q24H 08/22/19 11:00 08/24/19 10:44 100 MLS/HR Midazolam HCl (Versed) 5 mg 1X ONCE 07/11/19 08:30 07/11/19 08:31 DC Midazolam HCl 100 mg/Sodium Chloride 100 ml @ 7 mls/hr CONT PRN 07/16/19 16:00 07/27/19 15:35 7 MLS/HR Midazolam HCl 50 mg/Sodium Chloride 50 ml @ 0 mls/hr CONT PRN 07/11/19 08:15 07/16/19 15:59 DC 07/14/19 22:39 7 MLS/HR Morphine Sulfate (Morphine Sulfate) 2 mg PRN Q2HR PRN 07/04/19 05:00 07/05/19 14:15 DC 07/05/19 12:26 2 MG Multi-Ingred Cream/Lotion/Oil/ Oint (Artificial Tears Eye Ointment) 1 ramu PRN Q1HR PRN 07/13/19 17:30 08/01/19 08:19 1 RAMU Naloxone HCl (Narcan) 0.4 mg PRN Q2MIN PRN 08/15/19 14:30 UNV Norepinephrine Bitartrate 8 mg/ Dextrose 258 ml @ 17.299 mls/ hr CONT PRN 07/05/19 15:30 08/05/19 09:19 DC 08/02/19 12:48 20.9 MLS/HR Ondansetron HCl (Zofran) 4 mg STK-MED ONCE 08/15/19 10:56 08/15/19 10:57 DC Pantoprazole Sodium (PROTONIX VIAL for IV PUSH) 40 mg DAILYAC 07/04/19 11:30 08/25/19 07:39 40 MG Phenylephrine HCl (PHENYLEPHRINE in 0.9% NACL PF) 1 mg STK-MED ONCE 08/15/19 12:34 08/15/19 12:34 DC Piperacillin Sod/ Tazobactam Sod 4.5 gm/Sodium Chloride 100 ml @ 200 mls/hr 1X ONCE 07/04/19 06:00 07/04/19 06:29 DC 07/04/19 05:44 200 MLS/HR Potassium Chloride 15 meq/ Bicarbonate Dialysis Soln w/ out KCl 5,007.5 ml @ 1,000 mls/ hr Q5H1M 07/17/19 20:00 07/21/19 13:08 DC 07/20/19 18:14 1,000 MLS/HR Potassium Chloride 20 meq/ Bicarbonate Dialysis Soln w/ out KCl 5,010 ml @ 1,000 mls/hr Q5H1M 07/13/19 16:00 07/17/19 19:59 DC 07/17/19 14:54 1,000 MLS/HR Potassium Chloride 75 meq/ Magnesium Sulfate 15 meq/Calcium Gluconate 8 meq/ Multivitamins 10 ml/Chromium/ Copper/Manganese/ Seleni/Zn 0.5 ml/ Insulin Human Regular 20 unit/ Total Parenteral Nutrition/Amino Acids/Dextrose/ Fat Emulsion Intravenous 1,920 ml @ 80 mls/hr TPN CONT 08/24/19 22:00 08/25/19 21:59 08/24/19 22:00 80 MLS/HR Potassium Chloride 75 meq/ Magnesium Sulfate 15 meq/Calcium Gluconate 8 meq/ Multivitamins 10 ml/Chromium/ Copper/Manganese/ Seleni/Zn 0.5 ml/ Insulin Human Regular 25 unit/ Total Parenteral Nutrition/Amino Acids/Dextrose/ Fat Emulsion Intravenous 1,920 ml @ 80 mls/hr TPN CONT 08/22/19 22:00 08/23/19 21:59 DC 08/22/19 23:08 80 MLS/HR Potassium Chloride 75 meq/ Magnesium Sulfate 20 meq/Calcium Gluconate 10 meq/ Multivitamins 10 ml/Chromium/ Copper/Manganese/ Seleni/Zn 0.5 ml/ Insulin Human Regular 25 unit/ Total Parenteral Nutrition/Amino Acids/Dextrose/ Fat Emulsion Intravenous 1,920 ml @ 80 mls/hr TPN CONT 08/21/19 22:00 08/22/19 21:59 DC 08/21/19 22:04 80 MLS/HR Potassium Chloride 75 meq/ Magnesium Sulfate 20 meq/Calcium Gluconate 10 meq/ Multivitamins 10 ml/Chromium/ Copper/Manganese/ Seleni/Zn 0.5 ml/ Insulin Human Regular 30 unit/ Total Parenteral Nutrition/Amino Acids/Dextrose/ Fat Emulsion Intravenous 1,920 ml @ 80 mls/hr TPN CONT 08/20/19 22:00 08/21/19 22:00 DC 08/20/19 21:51 80 MLS/HR Potassium Chloride/Water 100 ml @ 100 mls/hr Q1H 08/20/19 07:00 08/20/19 10:59 DC 08/20/19 13:05 100 MLS/HR Potassium Phosphate 20 mmol/ Sodium Chloride 106.6667 ml @ 51.667 m... 1X ONCE 07/13/19 13:00 07/13/19 15:03 DC 07/13/19 12:51 51.667 MLS/HR Potassium Acetate 30 meq/Magnesium Sulfate 20 meq/ Calcium Gluconate 10 meq/ Multivitamins 10 ml/Chromium/ Copper/Manganese/ Seleni/Zn 0.5 ml/ Insulin Human Regular 30 unit/ Potassium Chloride 30 meq/ Total Parenteral Nutrition/Amino Acids/Dextrose/ Fat Emulsion Intravenous 1,920 ml @ 80 mls/hr TPN CONT 08/19/19 22:00 08/20/19 21:59 DC 08/19/19 22:34 80 MLS/HR Potassium Acetate 55 meq/Magnesium Sulfate 20 meq/ Calcium Gluconate 10 meq/ Multivitamins 10 ml/Chromium/ Copper/Manganese/ Seleni/Zn 0.5 ml/ Insulin Human Regular 30 unit/ Total Parenteral Nutrition/Amino Acids/Dextrose/ Fat Emulsion Intravenous 1,920 ml @ 80 mls/hr TPN CONT 08/18/19 22:00 08/19/19 21:59 DC 08/19/19 01:00 80 MLS/HR Potassium Acetate 55 meq/Magnesium Sulfate 20 meq/ Calcium Gluconate 10 meq/ Multivitamins 10 ml/Chromium/ Copper/Manganese/ Seleni/Zn 0.5 ml/ Insulin Human Regular 35 unit/ Total Parenteral Nutrition/Amino Acids/Dextrose/ Fat Emulsion Intravenous 1,920 ml @ 80 mls/hr TPN CONT 08/16/19 22:00 08/17/19 21:59 DC 08/16/19 22:02 80 MLS/HR Potassium Acetate 65 meq/Magnesium Sulfate 20 meq/ Calcium Gluconate 10 meq/ Multivitamins 10 ml/Chromium/ Copper/Manganese/ Seleni/Zn 0.5 ml/ Insulin Human Regular 30 unit/ Total Parenteral Nutrition/Amino Acids/Dextrose/ Fat Emulsion Intravenous 1,920 ml @ 80 mls/hr TPN CONT 08/17/19 22:00 08/18/19 21:59 DC 08/17/19 22:22 80 MLS/HR Prochlorperazine Edisylate (Compazine) 5 mg PACU PRN PRN 08/15/19 07:00 08/16/19 06:59 DC Propofol 20 ml @ As Directed STK-MED ONCE 08/15/19 12:26 08/15/19 12:27 DC Ringer's Solution 1,000 ml @ 30 mls/hr Q24H 08/15/19 07:00 08/15/19 18:59 DC Rocuronium Only (Zemuron) 50 mg STK-MED ONCE 08/15/19 10:56 08/15/19 10:57 DC Sevoflurane (Ultane) 60 ml STK-MED ONCE 08/15/19 12:26 08/15/19 12:27 DC Sodium Bicarbonate 50 meq/Sodium Chloride 1,050 ml @ 75 mls/hr Q14H 07/06/19 07:30 07/11/19 10:28 DC 07/10/19 21:10 75 MLS/HR Sodium Acetate 50 meq/Potassium Acetate 55 meq/ Magnesium Sulfate 20 meq/Calcium Gluconate 10 meq/ Multivitamins 10 ml/Chromium/ Copper/Manganese/ Seleni/Zn 0.5 ml/ Insulin Human Regular 35 unit/ Total Parenteral Nutrition/Amino Acids/Dextrose/ Fat Emulsion Intravenous 1,800 ml @ 75 mls/hr TPN CONT 08/13/19 22:00 08/14/19 21:59 DC 08/13/19 22:03 75 MLS/HR Sodium Chloride 1,000 ml @ 25 mls/hr Q24H 08/15/19 14:30 UNV Sodium Chloride (Normal Saline Flush) 3 ml QSHIFT PRN 08/15/19 13:45 Sodium Chloride 90 meq/Calcium Gluconate 10 meq/ Multivitamins 10 ml/Chromium/ Copper/Manganese/ Seleni/Zn 0.5 ml/ Total Parenteral Nutrition/Amino Acids/Dextrose/ Fat Emulsion Intravenous 1,512 ml @ 63 mls/hr TPN CONT 07/06/19 22:00 07/07/19 21:59 DC 07/06/19 22:06 63 MLS/HR Sodium Chloride 90 meq/Calcium Gluconate 10 meq/ Multivitamins 10 ml/Chromium/ Copper/Manganese/ Seleni/Zn 1 ml/ Total Parenteral Nutrition/Amino Acids/Dextrose/ Fat Emulsion Intravenous 55.005 ml @ 2.292 mls/hr TPN CONT 07/06/19 22:00 07/06/19 12:33 DC Sodium Chloride 90 meq/Magnesium Sulfate 10 meq/ Calcium Gluconate 20 meq/ Multivitamins 10 ml/Chromium/ Copper/Manganese/ Seleni/Zn 0.5 ml/ Total Parenteral Nutrition/Amino Acids/Dextrose/ Fat Emulsion Intravenous 1,512 ml @ 63 mls/hr TPN CONT 07/07/19 22:00 07/08/19 21:59 DC 07/07/19 22:25 63 MLS/HR Sodium Chloride 90 meq/Magnesium Sulfate 12 meq/ Calcium Gluconate 15 meq/ Multivitamins 10 ml/Chromium/ Copper/Manganese/ Seleni/Zn 0.5 ml/ Insulin Human Regular 25 unit/ Total Parenteral Nutrition/Amino Acids/Dextrose/ Fat Emulsion Intravenous 1,400 ml @ 58.333 mls/ hr TPN CONT 07/27/19 22:00 07/28/19 21:59 DC 07/27/19 21:41 58.333 MLS/HR Sodium Chloride 90 meq/Potassium Chloride 15 meq/ Magnesium Sulfate 12 meq/Calcium Gluconate 15 meq/ Multivitamins 10 ml/Chromium/ Copper/Manganese/ Seleni/Zn 0.5 ml/ Insulin Human Regular 25 unit/ Total Parenteral Nutrition/Amino Acids/Dextrose/ Fat Emulsion Intravenous 1,400 ml @ 58.333 mls/ hr TPN CONT 07/26/19 22:00 07/27/19 21:59 DC 07/26/19 22:13 58.333 MLS/HR Sodium Chloride 90 meq/Potassium Chloride 15 meq/ Potassium Phosphate 10 mmol/ Magnesium Sulfate 8 meq/Calcium Gluconate 15 meq/ Multivitamins 10 ml/Chromium/ Copper/Manganese/ Seleni/Zn 0.5 ml/ Insulin Human Regular 25 unit/ Total Parenteral Nutrition/Amino Acids/Dextrose/ Fat Emulsion Intravenous 1,400 ml @ 58.333 mls/ hr TPN CONT 07/24/19 22:00 07/25/19 21:59 DC 07/24/19 21:20 58.333 MLS/HR Sodium Chloride 90 meq/Potassium Chloride 15 meq/ Potassium Phosphate 10 mmol/ Magnesium Sulfate 10 meq/Calcium Gluconate 20 meq/ Multivitamins 10 ml/Chromium/ Copper/Manganese/ Seleni/Zn 0.5 ml/ Total Parenteral Nutrition/Amino Acids/Dextrose/ Fat Emulsion Intravenous 1,400 ml @ 58.333 mls/ hr TPN CONT 07/11/19 22:00 07/12/19 21:59 DC 07/11/19 21:42 58.333 MLS/HR Sodium Chloride 90 meq/Potassium Chloride 15 meq/ Potassium Phosphate 10 mmol/ Magnesium Sulfate 12 meq/Calcium Gluconate 15 meq/ Multivitamins 10 ml/Chromium/ Copper/Manganese/ Seleni/Zn 0.5 ml/ Insulin Human Regular 25 unit/ Total Parenteral Nutrition/Amino Acids/Dextrose/ Fat Emulsion Intravenous 1,400 ml @ 58.333 mls/ hr TPN CONT 07/25/19 22:00 07/26/19 21:59 DC 07/25/19 22:24 58.333 MLS/HR Sodium Chloride 90 meq/Potassium Chloride 15 meq/ Potassium Phosphate 15 mmol/ Magnesium Sulfate 10 meq/Calcium Gluconate 15 meq/ Multivitamins 10 ml/Chromium/ Copper/Manganese/ Seleni/Zn 0.5 ml/ Total Parenteral Nutrition/Amino Acids/Dextrose/ Fat Emulsion Intravenous 1,400 ml @ 58.333 mls/ hr TPN CONT 07/12/19 22:00 07/13/19 21:59 DC 07/12/19 22:17 58.333 MLS/HR Sodium Chloride 90 meq/Potassium Chloride 15 meq/ Potassium Phosphate 15 mmol/ Magnesium Sulfate 10 meq/Calcium Gluconate 20 meq/ Multivitamins 10 ml/Chromium/ Copper/Manganese/ Seleni/Zn 0.5 ml/ Total Parenteral Nutrition/Amino Acids/Dextrose/ Fat Emulsion Intravenous 1,200 ml @ 50 mls/hr TPN CONT 07/10/19 22:00 07/10/19 14:17 DC Sodium Chloride 90 meq/Potassium Chloride 15 meq/ Potassium Phosphate 18 mmol/ Magnesium Sulfate 8 meq/Calcium Gluconate 15 meq/ Multivitamins 10 ml/Chromium/ Copper/Manganese/ Seleni/Zn 0.5 ml/ Insulin Human Regular 10 unit/ Total Parenteral Nutrition/Amino Acids/Dextrose/ Fat Emulsion Intravenous 1,400 ml @ 58.333 mls/ hr TPN CONT 07/15/19 22:00 07/16/19 21:59 DC 07/15/19 21:43 58.333 MLS/HR Sodium Chloride 90 meq/Potassium Chloride 15 meq/ Potassium Phosphate 18 mmol/ Magnesium Sulfate 8 meq/Calcium Gluconate 15 meq/ Multivitamins 10 ml/Chromium/ Copper/Manganese/ Seleni/Zn 0.5 ml/ Insulin Human Regular 15 unit/ Total Parenteral Nutrition/Amino Acids/Dextrose/ Fat Emulsion Intravenous 1,400 ml @ 58.333 mls/ hr TPN CONT 07/18/19 22:00 07/19/19 21:59 DC 07/18/19 21:47 58.333 MLS/HR Sodium Chloride 90 meq/Potassium Chloride 15 meq/ Potassium Phosphate 18 mmol/ Magnesium Sulfate 8 meq/Calcium Gluconate 15 meq/ Multivitamins 10 ml/Chromium/ Copper/Manganese/ Seleni/Zn 0.5 ml/ Insulin Human Regular 20 unit/ Total Parenteral Nutrition/Amino Acids/Dextrose/ Fat Emulsion Intravenous 1,400 ml @ 58.333 mls/ hr TPN CONT 07/21/19 22:00 07/22/19 21:59 DC 07/21/19 22:45 58.333 MLS/HR Sodium Chloride 90 meq/Potassium Chloride 15 meq/ Potassium Phosphate 18 mmol/ Magnesium Sulfate 8 meq/Calcium Gluconate 15 meq/ Multivitamins 10 ml/Chromium/ Copper/Manganese/ Seleni/Zn 0.5 ml/ Total Parenteral Nutrition/Amino Acids/Dextrose/ Fat Emulsion Intravenous 1,400 ml @ 58.333 mls/ hr TPN CONT 07/14/19 22:00 07/15/19 21:59 DC 07/14/19 22:00 58.333 MLS/HR Sodium Chloride 90 meq/Potassium Phosphate 15 mmol/ Magnesium Sulfate 12 meq/Calcium Gluconate 15 meq/ Multivitamins 10 ml/Chromium/ Copper/Manganese/ Seleni/Zn 0.5 ml/ Insulin Human Regular 30 unit/ Total Parenteral Nutrition/Amino Acids/Dextrose/ Fat Emulsion Intravenous 1,400 ml @ 58.333 mls/ hr TPN CONT 07/29/19 22:00 07/30/19 21:59 DC 07/29/19 21:49 58.333 MLS/HR Sodium Chloride 90 meq/Potassium Phosphate 15 mmol/ Magnesium Sulfate 12 meq/Calcium Gluconate 15 meq/ Multivitamins 10 ml/Chromium/ Copper/Manganese/ Seleni/Zn 0.5 ml/ Insulin Human Regular 40 unit/ Total Parenteral Nutrition/Amino Acids/Dextrose/ Fat Emulsion Intravenous 1,400 ml @ 58.333 mls/ hr TPN CONT 07/30/19 22:00 07/31/19 21:59 DC 07/30/19 21:21 58.333 MLS/HR Sodium Chloride 90 meq/Potassium Phosphate 19 mmol/ Magnesium Sulfate 12 meq/Calcium Gluconate 15 meq/ Multivitamins 10 ml/Chromium/ Copper/Manganese/ Seleni/Zn 0.5 ml/ Insulin Human Regular 40 unit/ Total Parenteral Nutrition/Amino Acids/Dextrose/ Fat Emulsion Intravenous 1,400 ml @ 58.333 mls/ hr TPN CONT 07/31/19 22:00 08/01/19 21:59 DC 07/31/19 21:54 58.333 MLS/HR Sodium Chloride 90 meq/Potassium Phosphate 5 mmol/ Magnesium Sulfate 12 meq/Calcium Gluconate 15 meq/ Multivitamins 10 ml/Chromium/ Copper/Manganese/ Seleni/Zn 0.5 ml/ Insulin Human Regular 30 unit/ Total Parenteral Nutrition/Amino Acids/Dextrose/ Fat Emulsion Intravenous 1,400 ml @ 58.333 mls/ hr TPN CONT 07/28/19 22:00 07/29/19 21:59 DC 07/28/19 22:08 58.333 MLS/HR Sodium Chloride 100 meq/Potassium Chloride 40 meq/ Magnesium Sulfate 15 meq/Calcium Gluconate 15 meq/ Multivitamins 10 ml/Chromium/ Copper/Manganese/ Seleni/Zn 0.5 ml/ Insulin Human Regular 35 unit/ Total Parenteral Nutrition/Amino Acids/Dextrose/ Fat Emulsion Intravenous 1,400 ml @ 58.333 mls/ hr TPN CONT 08/07/19 22:00 08/08/19 21:59 DC 08/07/19 22:46 58.333 MLS/HR Sodium Chloride 100 meq/Potassium Chloride 40 meq/ Magnesium Sulfate 20 meq/Calcium Gluconate 10 meq/ Multivitamins 10 ml/Chromium/ Copper/Manganese/ Seleni/Zn 0.5 ml/ Insulin Human Regular 35 unit/ Total Parenteral Nutrition/Amino Acids/Dextrose/ Fat Emulsion Intravenous 1,400 ml @ 58.333 mls/ hr TPN CONT 08/11/19 22:00 08/12/19 21:59 DC 08/12/19 00:06 58.333 MLS/HR Sodium Chloride 100 meq/Potassium Chloride 40 meq/ Magnesium Sulfate 20 meq/Calcium Gluconate 15 meq/ Multivitamins 10 ml/Chromium/ Copper/Manganese/ Seleni/Zn 0.5 ml/ Insulin Human Regular 35 unit/ Total Parenteral Nutrition/Amino Acids/Dextrose/ Fat Emulsion Intravenous 1,400 ml @ 58.333 mls/ hr TPN CONT 08/10/19 22:00 08/11/19 21:59 DC 08/10/19 22:27 58.333 MLS/HR Sodium Chloride 100 meq/Potassium Phosphate 10 mmol/ Magnesium Sulfate 12 meq/Calcium Gluconate 15 meq/ Multivitamins 10 ml/Chromium/ Copper/Manganese/ Seleni/Zn 0.5 ml/ Insulin Human Regular 35 unit/ Potassium Chloride 20 meq/ Total Parenteral Nutrition/Amino Acids/Dextrose/ Fat Emulsion Intravenous 1,400 ml @ 58.333 mls/ hr TPN CONT 08/04/19 22:00 08/05/19 21:59 DC 08/04/19 22:10 58.333 MLS/HR Sodium Chloride 100 meq/Potassium Phosphate 19 mmol/ Magnesium Sulfate 12 meq/Calcium Gluconate 15 meq/ Multivitamins 10 ml/Chromium/ Copper/Manganese/ Seleni/Zn 0.5 ml/ Insulin Human Regular 40 unit/ Potassium Chloride 20 meq/ Total Parenteral Nutrition/Amino Acids/Dextrose/ Fat Emulsion Intravenous 1,400 ml @ 58.333 mls/ hr TPN CONT 08/03/19 22:00 08/04/19 21:59 DC 08/03/19 21:20 58.333 MLS/HR Sodium Chloride 100 meq/Potassium Phosphate 5 mmol/ Magnesium Sulfate 12 meq/Calcium Gluconate 15 meq/ Multivitamins 10 ml/Chromium/ Copper/Manganese/ Seleni/Zn 0.5 ml/ Insulin Human Regular 35 unit/ Potassium Chloride 20 meq/ Total Parenteral Nutrition/Amino Acids/Dextrose/ Fat Emulsion Intravenous 1,400 ml @ 58.333 mls/ hr TPN CONT 08/05/19 22:00 08/06/19 21:59 DC 08/05/19 22:59 58.333 MLS/HR Succinylcholine Chloride (Anectine) 120 mg 1X ONCE 07/11/19 08:30 07/11/19 08:31 DC 07/11/19 08:34 120 MG Lab Laboratory Tests Test 08/24/19 13:00 08/24/19 16:40 08/24/19 17:30 08/25/19 00:09 Glucose (Fingerstick) 156 mg/dL (70-99) 108 mg/dL (70-99) 100 mg/dL (70-99) Hemoglobin 7.8 g/dL (12.0-15.5) Hematocrit 24.1 % (36.0-47.0) Mean Corpuscular Hemoglobin Concent 32 g/dL (31-37) Test 08/25/19 05:00 White Blood Count 9.1 x10^3/uL (4.0-11.0) Red Blood Count 2.44 x10^6/uL (3.50-5.40) Hemoglobin 7.1 g/dL (12.0-15.5) Hematocrit 21.9 % (36.0-47.0) Mean Corpuscular Volume 90 fL (79-100) Mean Corpuscular Hemoglobin 29 pg (25-35) Mean Corpuscular Hemoglobin Concent 33 g/dL (31-37) Red Cell Distribution Width 17.5 % (11.5-14.5) Platelet Count 382 x10^3/uL (140-400) Neutrophils (%) (Auto) 73 % (31-73) Lymphocytes (%) (Auto) 21 % (24-48) Monocytes (%) (Auto) 5 % (0-9) Eosinophils (%) (Auto) 1 % (0-3) Basophils (%) (Auto) 0 % (0-3) Neutrophils # (Auto) 6.6 x10^3/uL (1.8-7.7) Lymphocytes # (Auto) 1.9 x10^3/uL (1.0-4.8) Monocytes # (Auto) 0.5 x10^3/uL (0.0-1.1) Eosinophils # (Auto) 0.1 x10^3/uL (0.0-0.7) Basophils # (Auto) 0.0 x10^3/uL (0.0-0.2) Sodium Level 152 mmol/L (136-145) Potassium Level 4.2 mmol/L (3.5-5.1) Chloride Level 116 mmol/L (98-107) Carbon Dioxide Level 31 mmol/L (21-32) Anion Gap 5 (6-14) Blood Urea Nitrogen 39 mg/dL (7-20) Creatinine 1.0 mg/dL (0.6-1.0) Estimated GFR (Cockcroft-Gault) 58.9 Glucose Level 153 mg/dL (70-99) Glucose (Fingerstick) 139 mg/dL (70-99) Calcium Level 8.4 mg/dL (8.5-10.1) Phosphorus Level 3.3 mg/dL (2.6-4.7) Magnesium Level 2.0 mg/dL (1.8-2.4) Results All relevant outside records, renal labs, imaging studies, telemetry/EKG's were reviewed. VERENA KENT MD August 25, 2019 11:37
[2019-08-25] MEDS: MICAFUNGIN 100 MG in IV DEXTROSE 5% 100ML 100 ML IV SCH (12:11)
--- NOTE | 2019-08-25 12:45 | PDOC ---
SURGICAL PROGRESS NOTE Subjective Pt with N/V, had NGT replaced, appears comfortable Vital Signs Vital Signs Date Time Temp Pulse Resp B/P (MAP) Pulse Ox O2 Delivery O2 Flow Rate FiO2 08/25/19 12:00 Trach Collar 8.0 08/25/19 11:57 97 08/25/19 10:00 82 25 117/73 (88) 08/25/19 08:00 99.3 99.3 I&O Intake and Output 08/25/19 07:00 Intake Total 2453.05 ml Output Total 2135 ml Balance 318.05 ml Intake Oral 0 ml IV Total 1793.05 ml Blood Product IV Normal Saline Flush 660 ml Output Urine Total 1680 ml Drainage Total 430 ml Other 25 ml General: Alert, Oriented X3, Cooperative, No acute distress Abdomen: Soft, No tenderness, Other (NGT with bilious aspirate) Labs Laboratory Tests Test 08/23/19 18:13 08/24/19 00:09 08/24/19 06:05 08/24/19 06:09 Glucose (Fingerstick) 143 mg/dL (70-99) 151 mg/dL (70-99) 128 mg/dL (70-99) White Blood Count 8.8 x10^3/uL (4.0-11.0) Red Blood Count 2.30 x10^6/uL (3.50-5.40) Hemoglobin 6.8 g/dL (12.0-15.5) Hematocrit 20.9 % (36.0-47.0) Mean Corpuscular Volume 91 fL (79-100) Mean Corpuscular Hemoglobin 29 pg (25-35) Mean Corpuscular Hemoglobin Concent 32 g/dL (31-37) Red Cell Distribution Width 18.8 % (11.5-14.5) Platelet Count 416 x10^3/uL (140-400) Neutrophils (%) (Auto) 70 % (31-73) Lymphocytes (%) (Auto) 21 % (24-48) Monocytes (%) (Auto) 6 % (0-9) Eosinophils (%) (Auto) 3 % (0-3) Basophils (%) (Auto) 0 % (0-3) Neutrophils # (Auto) 6.1 x10^3/uL (1.8-7.7) Lymphocytes # (Auto) 1.9 x10^3/uL (1.0-4.8) Monocytes # (Auto) 0.5 x10^3/uL (0.0-1.1) Eosinophils # (Auto) 0.2 x10^3/uL (0.0-0.7) Basophils # (Auto) 0.0 x10^3/uL (0.0-0.2) Sodium Level 152 mmol/L (136-145) Potassium Level 4.3 mmol/L (3.5-5.1) Chloride Level 113 mmol/L (98-107) Carbon Dioxide Level 31 mmol/L (21-32) Anion Gap 8 (6-14) Blood Urea Nitrogen 38 mg/dL (7-20) Creatinine 0.9 mg/dL (0.6-1.0) Estimated GFR (Cockcroft-Gault) 66.5 BUN/Creatinine Ratio 42 (6-20) Glucose Level 137 mg/dL (70-99) Calcium Level 9.0 mg/dL (8.5-10.1) Total Bilirubin 0.4 mg/dL (0.2-1.0) Aspartate Amino Transf (AST/SGOT) 35 U/L (15-37) Alanine Aminotransferase (ALT/SGPT) 30 U/L (14-59) Alkaline Phosphatase 84 U/L (46-116) Total Protein 5.6 g/dL (6.4-8.2) Albumin 1.8 g/dL (3.4-5.0) Albumin/Globulin Ratio 0.5 (1.0-1.7) Test 08/24/19 08:20 08/24/19 13:00 08/24/19 16:40 08/24/19 17:30 Hemoglobin 6.4 g/dL (12.0-15.5) 7.8 g/dL (12.0-15.5) Hematocrit 20.1 % (36.0-47.0) 24.1 % (36.0-47.0) Mean Corpuscular Hemoglobin Concent 32 g/dL (31-37) 32 g/dL (31-37) Glucose (Fingerstick) 156 mg/dL (70-99) 108 mg/dL (70-99) Test 08/25/19 00:09 08/25/19 05:00 5/7/20 11:44 Glucose (Fingerstick) 100 mg/dL (70-99) 139 mg/dL (70-99) 150 mg/dL (70-99) White Blood Count 9.1 x10^3/uL (4.0-11.0) Red Blood Count 2.44 x10^6/uL (3.50-5.40) Hemoglobin 7.1 g/dL (12.0-15.5) Hematocrit 21.9 % (36.0-47.0) Mean Corpuscular Volume 90 fL (79-100) Mean Corpuscular Hemoglobin 29 pg (25-35) Mean Corpuscular Hemoglobin Concent 33 g/dL (31-37) Red Cell Distribution Width 17.5 % (11.5-14.5) Platelet Count 382 x10^3/uL (140-400) Neutrophils (%) (Auto) 73 % (31-73) Lymphocytes (%) (Auto) 21 % (24-48) Monocytes (%) (Auto) 5 % (0-9) Eosinophils (%) (Auto) 1 % (0-3) Basophils (%) (Auto) 0 % (0-3) Neutrophils # (Auto) 6.6 x10^3/uL (1.8-7.7) Lymphocytes # (Auto) 1.9 x10^3/uL (1.0-4.8) Monocytes # (Auto) 0.5 x10^3/uL (0.0-1.1) Eosinophils # (Auto) 0.1 x10^3/uL (0.0-0.7) Basophils # (Auto) 0.0 x10^3/uL (0.0-0.2) Sodium Level 152 mmol/L (136-145) Potassium Level 4.2 mmol/L (3.5-5.1) Chloride Level 116 mmol/L (98-107) Carbon Dioxide Level 31 mmol/L (21-32) Anion Gap 5 (6-14) Blood Urea Nitrogen 39 mg/dL (7-20) Creatinine 1.0 mg/dL (0.6-1.0) Estimated GFR (Cockcroft-Gault) 58.9 Glucose Level 153 mg/dL (70-99) Calcium Level 8.4 mg/dL (8.5-10.1) Phosphorus Level 3.3 mg/dL (2.6-4.7) Magnesium Level 2.0 mg/dL (1.8-2.4) Laboratory Tests Test 08/24/19 13:00 08/24/19 16:40 08/24/19 17:30 08/25/19 00:09 Glucose (Fingerstick) 156 mg/dL (70-99) 108 mg/dL (70-99) 100 mg/dL (70-99) Hemoglobin 7.8 g/dL (12.0-15.5) Hematocrit 24.1 % (36.0-47.0) Mean Corpuscular Hemoglobin Concent 32 g/dL (31-37) Test 08/25/19 05:00 08/25/19 11:44 White Blood Count 9.1 x10^3/uL (4.0-11.0) Red Blood Count 2.44 x10^6/uL (3.50-5.40) Hemoglobin 7.1 g/dL (12.0-15.5) Hematocrit 21.9 % (36.0-47.0) Mean Corpuscular Volume 90 fL (79-100) Mean Corpuscular Hemoglobin 29 pg (25-35) Mean Corpuscular Hemoglobin Concent 33 g/dL (31-37) Red Cell Distribution Width 17.5 % (11.5-14.5) Platelet Count 382 x10^3/uL (140-400) Neutrophils (%) (Auto) 73 % (31-73) Lymphocytes (%) (Auto) 21 % (24-48) Monocytes (%) (Auto) 5 % (0-9) Eosinophils (%) (Auto) 1 % (0-3) Basophils (%) (Auto) 0 % (0-3) Neutrophils # (Auto) 6.6 x10^3/uL (1.8-7.7) Lymphocytes # (Auto) 1.9 x10^3/uL (1.0-4.8) Monocytes # (Auto) 0.5 x10^3/uL (0.0-1.1) Eosinophils # (Auto) 0.1 x10^3/uL (0.0-0.7) Basophils # (Auto) 0.0 x10^3/uL (0.0-0.2) Sodium Level 152 mmol/L (136-145) Potassium Level 4.2 mmol/L (3.5-5.1) Chloride Level 116 mmol/L (98-107) Carbon Dioxide Level 31 mmol/L (21-32) Anion Gap 5 (6-14) Blood Urea Nitrogen 39 mg/dL (7-20) Creatinine 1.0 mg/dL (0.6-1.0) Estimated GFR (Cockcroft-Gault) 58.9 Glucose Level 153 mg/dL (70-99) Glucose (Fingerstick) 139 mg/dL (70-99) 150 mg/dL (70-99) Calcium Level 8.4 mg/dL (8.5-10.1) Phosphorus Level 3.3 mg/dL (2.6-4.7) Magnesium Level 2.0 mg/dL (1.8-2.4) Problem List Problems Medical Problems: (1) Acute pancreatitis Status: Acute (2) Cholelithiasis Status: Acute Assessment/Plan s/p lap exp cont supportive care considering drainage per IR DAVON SIMMS MD August 25, 2019 12:45
[2019-08-25] MEDS: TPN PER PHARMACY MC PRN (13:25)
--- NOTE | 2019-08-25 13:29 | NUR ---
Pharmacy TPN Dosing Note S: SCOTT AVILA is a 48 year old F Currently receiving Central Continuous TPN started 07/06/19 B:Pertinent PMH: Necrotizing pancreatitis Height: 5 feet, 8 inches Weight: 107.0 kg Current diet: NPO LABS: Sodium: 152 Potassium: 4.2 Chloride: 116 Calcium: 8.4 Corrected Calcium: 10.16 Magnesium: 2 CO2: 31 SCr: 1 Glucose: 108-150 Albumin: 1.8 AST: 35 ALT: 30 TPN FORMULA: TPN TYPE: Central Continuous AMINO ACIDS: 90 gm DEXTROSE: 225 gm LIPIDS: 30 gm POTASSIUM CHLORIDE: 75 mEq MAGNESIUM: 15 mEq CALCIUM: 8 mEq INSULIN: 15 units MULTIPLE VITAMIN: 10 ml TRACE ELEMENTS: 0.5 ml(s) TPN PLAN: Insulin reduced to 15 units/bag of TPN R: Change TPN per plan and ordered formula Will monitor electrolytes, glucose, and tolerance to TPN. Raeann Mcdonnell RPH, 08/25/19 [id number]
[2019-08-25] MEDS: IV NORMAL SALINE 1000ML BAG 1,000 ML IV SCH (13:56)
--- NOTE | 2019-08-25 14:56 | PDOC ---
PROGRESS NOTES Chief Complaint Chief Complaint Acute hypoxic Respiratory failure requiring mechanical ventilation (on vent since 07/10) Tracheostomy bilateral pleural effusions/pulm edema Sepsis Severe Acute gallstone pancreatitis (not a surgical candidate at this time) with necrosis Acute kidney failure now requiring dialysis Salpingitis Gallstones (Calculus of gallbladder with acute cholecystitis without obstruction) HTN Leukocytosis Hypoxia Uterine fibroid Intractable pain Intractable nausea Covid 19 negative. Acute on chronic anemia EEG: No seizure activity ESRD on HD Hyperglycemia Plan: Continue with supportive measures No surgical plans as of yet We will continue to follow History of Present Illness History of Present Illness Ms Diaz is a 48yo F w/ PMHx HTN, prediabetes who presented to the emergency room with complaints of abdominal pain on 07/04/2019. Found with Lipase 50460, AST 401, ALT 249, Bilirubin 1.4. CT abdomen confirms pancreatic inflammation, peripancreatic fluid and inflammatory changes around the pancreas consistent with pancreatitis. Cholelithiasis and 1.4cm uterine fibroid as well as possible left salpingitis. Admitted for further care GI, General surgery, ID, Pulm consulted. 07/04: PICC placed per IR. Renal US negative. Started on levophed. Repeat CT abdomen w/ necrosis; 07/05: Dialysis catheter per nephrology; 07/06: On BiPAP; 07/07: BiPAP, dialysis; 07/08: Overnight Tmax 101.7 , still on BiPAP FiO2 40%, sti ll on low dose Levophed gtt, TPN initiated. On dialysis 07/24: Tracheostomy; 07/30: S/p tracheostomy on vent spontaneous respirations with 5 of pressure support 35% FiO2, rectal tube and a Lind, off pressors; 08/01:Still on vent via trach. Removed PICC and CVC LIJ and replaced. CT chest/abd/pelvis with bilateral pleural effusion and ascites. 08/02: Renal function stable. Still on vent. More interactive today. Miming wish for food. Plan discussed for thoracentesis/paracentesis with daughters today. They were under impression patient was doing worse due to a miscommunication which has been clarified over the phone. 4.3L removed. 08/04: Febrile overnight 101.8F. More interactive, still on vent. Asking for ice by miming; 08/05: Afebrile overnight. TMax last 24 hours 100.6F. Hb 7.1. Interactive when awake. 08/09: Transfusion 1u PRBC (6U total since admit) 08/10-08/13: TPN and precedex, vent. 08/14: Tmax 101F overnight. Hb 8.2. HD cath out since 08/11. Alert. On vent SIMV 35% FiO2. Surgery: ex-lap, no ronel or pancreatic necrosectomy 2/2 profound inflammation. 08/15: Seen POD #1. Afebrile overnight. BUN 62. CBC WNL today.Remains on vent via trach, TPN. Able to point today and indicate she wishes her daughters and Jamaal to be involved in her care. 08/16: Hb 7.4, Na 151. Remains on vent via trach, TPN. off HD for now. Not tolerating trach shield well. 08/17: Negative US for UE DVT. More relaxed today. Has some increase in UOP. Tolerating vent well. She is requesting to eat and drink via writing. T max 100F 24 hours ago, but 101F at 1200. Right PICC placed. Speaking valve for half the day in [facility] 08/18: Na 153 today. Good UOP. Tmax 101F at 1200 on 08/17. She becomes a bit anxious and did not sleep much last night, wishes to try to sleep this morning 08/19: Able to speak well with speaking valve today. Na 153, K2.9, Mg 1.8, Cr 1. 100.4F axillary temp overnight. Asking for food. 08/20: Afebrile overnight. ABG with pH 7.27/75/123. Hb 7.1. Na 153. TRANSPORTATION BROKER settings decreased 08/21: No acute events reported overnight, case discussed with nursing staff patient in no acute distress no complaints during my visit 08/22: Patient responding to verbal stimuli. She is saturating well and not requiring ventilation support, no acute events reported overnight seems to be slowly improving 08/23: Patient requiring transfusion of packed red blood cells due to anemia, no evidence of acute bleeding, appreciate GI oim consultant recommendations 08/24: Patient required ventilatory support given that she desaturated, she is lying in bed in mild distress, case discussed with nursing staff, no evidence of bleeding, h an h noted. Plan: vent support, wean if possible throughout the day Encourage activity as tolerated Monitor fever curve, no obvious source of infection, possibly some aspiration events, atelectasis will monitor for bleeding. Vitals Vitals Vital Signs Date Time Temp Pulse Resp B/P (MAP) Pulse Ox O2 Delivery O2 Flow Rate FiO2 08/25/19 14:00 94 34 134/72 (92) 98 Tracheal Collar 8.0 08/25/19 12:00 99.8 99.8 Physical Exam Physical Exam GENERAL: Propped up in bed. Nonresponsive s/p meds HEENT: oral cavity dry NECK: Trach/vent LUNGS: rhonchi HEART: S1, S2, regular ABDOMEN: Distended, hypoactive BS, drain placement (08/14 - serous fluid) : Lind (08/01) EXTREMITIES: Generalized edema, no cyanosis, SCDs bilaterally DERMATOLOGIC: Warm and dry. No generalized rash. CENTRAL NERVOUS SYSTEM: weak, mouthing words to simple questions PICC line in place August 18, 2019 clean HDC has been removed LIJ removed General: Alert, Oriented X3, Cooperative, No acute distress Heart: Regular rate, No murmurs Lungs: Crackles Abdomen: Soft, No tenderness, Other (NGT with bilious aspirate) Extremities: No edema Skin: Other (mottling noted to extremities ) Labs LABS Laboratory Tests Test 08/24/19 16:40 08/24/19 17:30 08/25/19 00:09 08/25/19 05:00 Hemoglobin 7.8 g/dL (12.0-15.5) 7.1 g/dL (12.0-15.5) Hematocrit 24.1 % (36.0-47.0) 21.9 % (36.0-47.0) Mean Corpuscular Hemoglobin Concent 32 g/dL (31-37) 33 g/dL (31-37) Glucose (Fingerstick) 108 mg/dL (70-99) 100 mg/dL (70-99) 139 mg/dL (70-99) White Blood Count 9.1 x10^3/uL (4.0-11.0) Red Blood Count 2.44 x10^6/uL (3.50-5.40) Mean Corpuscular Volume 90 fL (79-100) Mean Corpuscular Hemoglobin 29 pg (25-35) Red Cell Distribution Width 17.5 % (11.5-14.5) Platelet Count 382 x10^3/uL (140-400) Neutrophils (%) (Auto) 73 % (31-73) Lymphocytes (%) (Auto) 21 % (24-48) Monocytes (%) (Auto) 5 % (0-9) Eosinophils (%) (Auto) 1 % (0-3) Basophils (%) (Auto) 0 % (0-3) Neutrophils # (Auto) 6.6 x10^3/uL (1.8-7.7) Lymphocytes # (Auto) 1.9 x10^3/uL (1.0-4.8) Monocytes # (Auto) 0.5 x10^3/uL (0.0-1.1) Eosinophils # (Auto) 0.1 x10^3/uL (0.0-0.7) Basophils # (Auto) 0.0 x10^3/uL (0.0-0.2) Sodium Level 152 mmol/L (136-145) Potassium Level 4.2 mmol/L (3.5-5.1) Chloride Level 116 mmol/L (98-107) Carbon Dioxide Level 31 mmol/L (21-32) Anion Gap 5 (6-14) Blood Urea Nitrogen 39 mg/dL (7-20) Creatinine 1.0 mg/dL (0.6-1.0) Estimated GFR (Cockcroft-Gault) 58.9 Glucose Level 153 mg/dL (70-99) Calcium Level 8.4 mg/dL (8.5-10.1) Phosphorus Level 3.3 mg/dL (2.6-4.7) Magnesium Level 2.0 mg/dL (1.8-2.4) Test 08/25/19 11:44 Glucose (Fingerstick) 150 mg/dL (70-99) Assessment and Plan Assessmemt and Plan Problems Medical Problems: (1) Acute pancreatitis Status: Acute (2) Cholelithiasis Status: Acute Comment Review of Relevant I have reviewed the following items kolby (where applicable) has been applied. Labs Laboratory Tests Test 08/23/19 18:13 08/24/19 00:09 08/24/19 06:05 08/24/19 06:09 Glucose (Fingerstick) 143 mg/dL (70-99) 151 mg/dL (70-99) 128 mg/dL (70-99) White Blood Count 8.8 x10^3/uL (4.0-11.0) Red Blood Count 2.30 x10^6/uL (3.50-5.40) Hemoglobin 6.8 g/dL (12.0-15.5) Hematocrit 20.9 % (36.0-47.0) Mean Corpuscular Volume 91 fL (79-100) Mean Corpuscular Hemoglobin 29 pg (25-35) Mean Corpuscular Hemoglobin Concent 32 g/dL (31-37) Red Cell Distribution Width 18.8 % (11.5-14.5) Platelet Count 416 x10^3/uL (140-400) Neutrophils (%) (Auto) 70 % (31-73) Lymphocytes (%) (Auto) 21 % (24-48) Monocytes (%) (Auto) 6 % (0-9) Eosinophils (%) (Auto) 3 % (0-3) Basophils (%) (Auto) 0 % (0-3) Neutrophils # (Auto) 6.1 x10^3/uL (1.8-7.7) Lymphocytes # (Auto) 1.9 x10^3/uL (1.0-4.8) Monocytes # (Auto) 0.5 x10^3/uL (0.0-1.1) Eosinophils # (Auto) 0.2 x10^3/uL (0.0-0.7) Basophils # (Auto) 0.0 x10^3/uL (0.0-0.2) Sodium Level 152 mmol/L (136-145) Potassium Level 4.3 mmol/L (3.5-5.1) Chloride Level 113 mmol/L (98-107) Carbon Dioxide Level 31 mmol/L (21-32) Anion Gap 8 (6-14) Blood Urea Nitrogen 38 mg/dL (7-20) Creatinine 0.9 mg/dL (0.6-1.0) Estimated GFR (Cockcroft-Gault) 66.5 BUN/Creatinine Ratio 42 (6-20) Glucose Level 137 mg/dL (70-99) Calcium Level 9.0 mg/dL (8.5-10.1) Total Bilirubin 0.4 mg/dL (0.2-1.0) Aspartate Amino Transf (AST/SGOT) 35 U/L (15-37) Alanine Aminotransferase (ALT/SGPT) 30 U/L (14-59) Alkaline Phosphatase 84 U/L (46-116) Total Protein 5.6 g/dL (6.4-8.2) Albumin 1.8 g/dL (3.4-5.0) Albumin/Globulin Ratio 0.5 (1.0-1.7) Test 08/24/19 08:20 08/24/19 13:00 08/24/19 16:40 08/24/19 17:30 Hemoglobin 6.4 g/dL (12.0-15.5) 7.8 g/dL (12.0-15.5) Hematocrit 20.1 % (36.0-47.0) 24.1 % (36.0-47.0) Mean Corpuscular Hemoglobin Concent 32 g/dL (31-37) 32 g/dL (31-37) Glucose (Fingerstick) 156 mg/dL (70-99) 108 mg/dL (70-99) Test 08/25/19 00:09 08/25/19 05:00 08/25/19 11:44 Glucose (Fingerstick) 100 mg/dL (70-99) 139 mg/dL (70-99) 150 mg/dL (70-99) White Blood Count 9.1 x10^3/uL (4.0-11.0) Red Blood Count 2.44 x10^6/uL (3.50-5.40) Hemoglobin 7.1 g/dL (12.0-15.5) Hematocrit 21.9 % (36.0-47.0) Mean Corpuscular Volume 90 fL (79-100) Mean Corpuscular Hemoglobin 29 pg (25-35) Mean Corpuscular Hemoglobin Concent 33 g/dL (31-37) Red Cell Distribution Width 17.5 % (11.5-14.5) Platelet Count 382 x10^3/uL (140-400) Neutrophils (%) (Auto) 73 % (31-73) Lymphocytes (%) (Auto) 21 % (24-48) Monocytes (%) (Auto) 5 % (0-9) Eosinophils (%) (Auto) 1 % (0-3) Basophils (%) (Auto) 0 % (0-3) Neutrophils # (Auto) 6.6 x10^3/uL (1.8-7.7) Lymphocytes # (Auto) 1.9 x10^3/uL (1.0-4.8) Monocytes # (Auto) 0.5 x10^3/uL (0.0-1.1) Eosinophils # (Auto) 0.1 x10^3/uL (0.0-0.7) Basophils # (Auto) 0.0 x10^3/uL (0.0-0.2) Sodium Level 152 mmol/L (136-145) Potassium Level 4.2 mmol/L (3.5-5.1) Chloride Level 116 mmol/L (98-107) Carbon Dioxide Level 31 mmol/L (21-32) Anion Gap 5 (6-14) Blood Urea Nitrogen 39 mg/dL (7-20) Creatinine 1.0 mg/dL (0.6-1.0) Estimated GFR (Cockcroft-Gault) 58.9 Glucose Level 153 mg/dL (70-99) Calcium Level 8.4 mg/dL (8.5-10.1) Phosphorus Level 3.3 mg/dL (2.6-4.7) Magnesium Level 2.0 mg/dL (1.8-2.4) Laboratory Tests Test 08/24/19 16:40 08/24/19 17:30 08/25/19 00:09 08/25/19 05:00 Hemoglobin 7.8 g/dL (12.0-15.5) 7.1 g/dL (12.0-15.5) Hematocrit 24.1 % (36.0-47.0) 21.9 % (36.0-47.0) Mean Corpuscular Hemoglobin Concent 32 g/dL (31-37) 33 g/dL (31-37) Glucose (Fingerstick) 108 mg/dL (70-99) 100 mg/dL (70-99) 139 mg/dL (70-99) White Blood Count 9.1 x10^3/uL (4.0-11.0) Red Blood Count 2.44 x10^6/uL (3.50-5.40) Mean Corpuscular Volume 90 fL (79-100) Mean Corpuscular Hemoglobin 29 pg (25-35) Red Cell Distribution Width 17.5 % (11.5-14.5) Platelet Count 382 x10^3/uL (140-400) Neutrophils (%) (Auto) 73 % (31-73) Lymphocytes (%) (Auto) 21 % (24-48) Monocytes (%) (Auto) 5 % (0-9) Eosinophils (%) (Auto) 1 % (0-3) Basophils (%) (Auto) 0 % (0-3) Neutrophils # (Auto) 6.6 x10^3/uL (1.8-7.7) Lymphocytes # (Auto) 1.9 x10^3/uL (1.0-4.8) Monocytes # (Auto) 0.5 x10^3/uL (0.0-1.1) Eosinophils # (Auto) 0.1 x10^3/uL (0.0-0.7) Basophils # (Auto) 0.0 x10^3/uL (0.0-0.2) Sodium Level 152 mmol/L (136-145) Potassium Level 4.2 mmol/L (3.5-5.1) Chloride Level 116 mmol/L (98-107) Carbon Dioxide Level 31 mmol/L (21-32) Anion Gap 5 (6-14) Blood Urea Nitrogen 39 mg/dL (7-20) Creatinine 1.0 mg/dL (0.6-1.0) Estimated GFR (Cockcroft-Gault) 58.9 Glucose Level 153 mg/dL (70-99) Calcium Level 8.4 mg/dL (8.5-10.1) Phosphorus Level 3.3 mg/dL (2.6-4.7) Magnesium Level 2.0 mg/dL (1.8-2.4) Test 08/25/19 11:44 Glucose (Fingerstick) 150 mg/dL (70-99) Microbiology 08/22/19 Blood Culture - Preliminary, Resulted NO GROWTH AFTER 3 DAYS 08/18/19 Aerobic Culture - Final, Complete 08/18/19 Aerobic Culture Result 1 (ALEXANDRA) - Final, Complete 08/18/19 Gram Stain - Final, Complete 08/18/19 Gram Stain Result 1 (ALEXANDRA) - Final, Complete 08/18/19 Gram Stain Result 2 (ALEXANDRA) - Final, Complete 08/15/19 Aerobic and Anaerobic Culture - Final, Complete 08/15/19 Anaerobic Culture Result 1 (ALEXANDRA) - Final, Complete 08/15/19 Aerobic Culture - Final, Complete 08/15/19 Aerobic Culture Result 1 (ALEXANDRA) - Final, Complete 08/15/19 Gram Stain - Final, Complete 08/15/19 Gram Stain Result 1 (ALEXANDRA) - Final, Complete 08/15/19 Gram Stain Result 2 (ALEXANDRA) - Final, Complete 07/31/19 Urine Culture - Final, Complete 07/31/19 Urine Culture Result 1 (ALEXANDRA) - Final, Complete Medications Current Medications Sodium Chloride 1,000 ml @ 1,000 mls/hr Q1H IV Last administered on 07/04/19at 03:00; Start 07/04/19 at 03:00; Stop 07/04/19 at 03:59; Status DC Ondansetron HCl (Zofran) 4 mg 1X ONCE IVP Last administered on 07/04/19at 03:27; Start 07/04/19 at 03:00; Stop 07/04/19 at 03:01; Status DC Morphine Sulfate (Morphine Sulfate) 4 mg 1X ONCE IV ; Start 07/04/19 at 03:00; Stop 07/04/19 at 03:01; Status Cancel Ketorolac Tromethamine (Toradol 30mg Vial) 30 mg 1X ONCE IV Last administered on 07/04/19at 02:54; Start 07/04/19 at 03:00; Stop 07/04/19 at 03:01; Status DC Fentanyl Citrate (Fentanyl 2ml Vial) 25 mcg 1X ONCE IVP Last administered on 07/04/19at 03:23; Start 07/04/19 at 03:30; Stop 07/04/19 at 03:31; Status DC Fentanyl Citrate (Fentanyl 2ml Vial) 100 mcg STK-MED ONCE .ROUTE ; Start 07/04/19 at 03:18; Stop 07/04/19 at 03:18; Status DC Iohexol (Omnipaque 350 Mg/ml) 90 ml 1X ONCE IV Last administered on 07/04/19at 03:25; Start 07/04/19 at 03:30; Stop 07/04/19 at 03:31; Status DC Info (CONTRAST GIVEN -- Rx MONITORING) 1 each PRN DAILY PRN MC SEE COMMENTS; Start 07/04/19 at 03:30; Stop 07/06/19 at 03:29; Status DC Hydromorphone HCl (Dilaudid) 0.5 mg 1X ONCE IV Last administered on 07/04/19at 03:55; Start 07/04/19 at 04:30; Stop 07/04/19 at 04:32; Status DC Ondansetron HCl (Zofran) 4 mg PRN Q8HRS PRN IV NAUSEA/VOMITING 1ST CHOICE; Start 07/04/19 at 05:00; Stop 07/04/19 at 09:27; Status DC Morphine Sulfate (Morphine Sulfate) 2 mg PRN Q2HR PRN IV SEVERE PAIN 7-10 Last administered on 07/05/19at 12:26; Start 07/04/19 at 05:00; Stop 07/05/19 at 14:15; Status DC Sodium Chloride 1,000 ml @ 125 mls/hr Q8H IV Last administered on 07/04/19at 20:56; Start 07/04/19 at 05:00; Stop 07/05/19 at 04:59; Status DC Hydromorphone HCl (Dilaudid) 0.5 mg PRN Q3HRS PRN IV SEVERE PAIN 7-10 Last administered on 07/05/19at 10:06; Start 07/04/19 at 05:00; Stop 07/05/19 at 12:01; Status DC Piperacillin Sod/ Tazobactam Sod 4.5 gm/Sodium Chloride 100 ml @ 200 mls/hr 1X ONCE IV Last administered on 07/04/19at 05:44; Start 07/04/19 at 06:00; Stop 07/04/19 at 06:29; Status DC Ondansetron HCl (Zofran) 4 mg PRN Q4HRS PRN IV NAUSEA/VOMITING 1ST CHOICE Last administered on 08/25/19at 08:07; Start 07/04/19 at 09:30 Insulin Human Lispro (HumaLOG) 0-9 UNITS Q6HRS SQ Last administered on 08/24/19at 13:12; Start 07/04/19 at 09:30 Dextrose (Dextrose 50%-Water Syringe) 12.5 gm PRN Q15MIN PRN IV SEE COMMENTS; Start 07/04/19 at 09:30 Pantoprazole Sodium (PROTONIX VIAL for IV PUSH) 40 mg DAILYAC IVP Last administered on 08/25/19at 07:39; Start 07/04/19 at 11:30 Prochlorperazine Edisylate (Compazine) 10 mg PRN Q6HRS PRN IV NAUSEA/VOMITING, 2nd CHOICE Last administered on 08/25/19at 03:57; Start 07/04/19 at 17:45 Atenolol (Tenormin) 100 mg DAILY PO ; Start 07/05/19 at 09:00; Stop 07/04/19 at 20:08; Status DC Metoprolol Tartrate (Lopressor Vial) 2.5 mg Q6HRS IVP Last administered on 07/05/19at 05:51; Start 07/04/19 at 20:15; Stop 07/05/19 at 10:02; Status DC Metoprolol Tartrate (Lopressor Vial) 5 mg Q6HRS IVP Last administered on 07/14/19at 00:12; Start 07/05/19 at 10:15; Stop 07/16/19 at 08:48; Status DC Hydromorphone HCl (Dilaudid) 1 mg PRN Q3HRS PRN IV SEVERE PAIN 7-10 Last administered on 07/11/19at 05:13; Start 07/05/19 at 12:00; Stop 07/19/19 at 00:25; Status DC Lidocaine HCl (Buffered Lidocaine 1%) 3 ml STK-MED ONCE .ROUTE ; Start 07/05/19 at 12:55; Stop 07/05/19 at 12:56; Status DC Albumin Human 500 ml @ 125 mls/hr 1X ONCE IV Last administered on 07/05/19at 14:33; Start 07/05/19 at 14:30; Stop 07/05/19 at 18:32; Status DC Norepinephrine Bitartrate 8 mg/ Dextrose 258 ml @ 17.299 mls/ hr CONT PRN IV PER PROTOCOL Last administered on 08/02/19at 12:48; Start 07/05/19 at 15:30; Stop 08/05/19 at 09:19; Status DC Sodium Chloride 1,000 ml @ 125 mls/hr Q8H IV Last administered on 07/05/19at 21:04; Start 07/05/19 at 16:00; Stop 07/06/19 at 02:42; Status DC Albumin Human 500 ml @ 125 mls/hr PRN BID PRN IV After every 2L NSS & BP < 90mm Last administered on 07/20/19at 14:21; Start 07/05/19 at 16:00 Iohexol (Omnipaque 300 Mg/ml) 60 ml 1X ONCE IV Last administered on 07/05/19at 17:20; Start 07/05/19 at 17:00; Stop 07/05/19 at 17:01; Status DC Info (CONTRAST GIVEN -- Rx MONITORING) 1 each PRN DAILY PRN MC SEE COMMENTS; Start 07/05/19 at 17:00; Stop 07/07/19 at 16:59; Status DC Meropenem 1 gm/ Sodium Chloride 100 ml @ 200 mls/hr Q8HRS IV Last administered on 07/06/19at 05:45; Start 07/05/19 at 20:00; Stop 07/06/19 at 08:48; Status DC Furosemide (Lasix) 40 mg 1X ONCE IVP Last administered on 07/05/19at 22:12; Start 07/05/19 at 22:30; Stop 07/05/19 at 22:31; Status DC Calcium Chloride 1000 mg/Sodium Chloride 110 ml @ 220 mls/hr 1X ONCE IV Last administered on 07/05/19at 22:11; Start 07/05/19 at 22:30; Stop 07/05/19 at 22:59; Status DC Albuterol Sulfate (Ventolin Neb Soln) 2.5 mg 1X ONCE NEB Last administered on 07/06/19at 00:56; Start 07/05/19 at 22:30; Stop 07/05/19 at 22:31; Status DC Insulin Human Regular (HumuLIN R VIAL) 5 unit 1X ONCE IV Last administered on 07/05/19at 22:14; Start 07/05/19 at 22:30; Stop 07/05/19 at 22:31; Status DC Magnesium Sulfate 50 ml @ 25 mls/hr 1X ONCE IV Last administered on 07/06/19at 02:57; Start 07/06/19 at 03:00; Stop 07/06/19 at 04:59; Status DC Calcium Gluconate 1000 mg/Sodium Chloride 110 ml @ 220 mls/hr 1X ONCE IV Last administered on 07/06/19at 02:46; Start 07/06/19 at 03:00; Stop 07/06/19 at 03:29; Status DC Sodium Chloride 1,000 ml @ 200 mls/hr Q5H IV Last administered on 07/06/19at 02:46; Start 07/06/19 at 03:00; Stop 07/06/19 at 10:21; Status DC Calcium Gluconate 1000 mg/Sodium Chloride 110 ml @ 220 mls/hr 1X ONCE IV Last administered on 07/06/19at 03:21; Start 07/06/19 at 03:30; Stop 07/06/19 at 03:59; Status DC Sodium Bicarbonate 50 meq/Sodium Chloride 1,050 ml @ 75 mls/hr Q14H IV Last administered on 07/10/19at 21:10; Start 07/06/19 at 07:30; Stop 07/11/19 at 10:28; Status DC Calcium Gluconate 2000 mg/Sodium Chloride 120 ml @ 220 mls/hr 1X ONCE IV Last administered on 07/06/19at 09:05; Start 07/06/19 at 07:30; Stop 07/06/19 at 08: 02; Status DC Lidocaine HCl (Xylocaine-Mpf 1% 2ml Vial) 2 ml STK-MED ONCE .ROUTE ; Start 07/06/19 at 08:47; Stop 07/06/19 at 08:47; Status DC Meropenem 500 mg/ Sodium Chloride 50 ml @ 100 mls/hr Q12HR IV Last administered on 07/11/19at 21:01; Start 07/06/19 at 18:00; Stop 07/12/19 at 07:58; Status DC Lidocaine HCl (Buffered Lidocaine 1%) 3 ml STK-MED ONCE .ROUTE ; Start 07/06/19 at 09:46; Stop 07/06/19 at 09:46; Status DC Lidocaine HCl (Buffered Lidocaine 1%) 6 ml 1X ONCE INJ Last administered on 07/06/19at 10:26; Start 07/06/19 at 10:15; Stop 07/06/19 at 10:16; Status DC Info (Tpn Per Pharmacy) 1 each PRN DAILY PRN MC SEE COMMENTS Last administered on 08/25/19at 13:25; Start 07/06/19 at 12:00 Sodium Chloride 1,000 ml @ 1,000 mls/hr Q1H PRN IV hypotension; Start 07/06/19 at 12:07; Stop 07/06/19 at 18:06; Status DC Diphenhydramine HCl (Benadryl) 25 mg 1X PRN PRN IV ITCHING; Start 07/06/19 at 12:15; Stop 07/07/19 at 12:14; Status DC Diphenhydramine HCl (Benadryl) 25 mg 1X PRN PRN IV ITCHING; Start 07/06/19 at 12:15; Stop 07/07/19 at 12:14; Status DC Sodium Chloride 1,000 ml @ 400 mls/hr Q2H30M PRN IV PATENCY; Start 07/06/19 at 12:07; Stop 07/07/19 at 00:06; Status DC Info (PHARMACY MONITORING -- do not chart) 1 each PRN DAILY PRN MC SEE COMMENTS; Start 07/06/19 at 12:15; Stop 07/08/19 at 08:13; Status DC Sodium Chloride 90 meq/Calcium Gluconate 10 meq/ Multivitamins 10 ml/Chromium/ Copper/Manganese/ Seleni/Zn 1 ml/ Total Parenteral Nutrition/Amino Acids/Dextrose/ Fat Emulsion Intravenous 55.005 ml @ 2.292 mls/hr TPN CONT IV ; Start 07/06/19 at 22:00; Stop 07/06/19 at 12:33; Status DC Info (Tpn Per Pharmacy) 1 each PRN DAILY PRN MC SEE COMMENTS; Start 07/06/19 at 12:30; Status UNV Sodium Chloride 90 meq/Calcium Gluconate 10 meq/ Multivitamins 10 ml/Chromium/ Copper/Manganese/ Seleni/Zn 0.5 ml/ Total Parenteral Nutrition/Amino Acids/Dextrose/ Fat Emulsion Intravenous 1,512 ml @ 63 mls/hr TPN CONT IV Last administered on 07/06/19at 22:06; Start 07/06/19 at 22:00; Stop 07/07/19 at 21:59; Status DC Calcium Carbonate/ Glycine (Tums) 500 mg PRN AFTMEALHC PRN PO INDIGESTION; Start 07/06/19 at 17:45 Calcium Gluconate (Calcium Gluconate) 2,000 mg 1X ONCE IVP Last administered on 07/07/19at 02:19; Start 07/07/19 at 02:15; Stop 07/07/19 at 02:16; Status DC Calcium Chloride 3000 mg/Sodium Chloride 1,030 ml @ 50 mls/hr [id number] IV Last administered on 07/09/19at 02:17; Start 07/07/19 at 08:00; Stop 07/09/19 at 15:23; Status DC Lorazepam (Ativan Inj) 1 mg PRN Q4HRS PRN IVP ANXIETY / AGITATION, 2nd choic Last administered on 08/05/19at 03:51; Start 07/07/19 at 09:00; Stop 08/05/19 at 09:19; Status DC Sodium Chloride 1,000 ml @ 1,000 mls/hr Q1H PRN IV hypotension; Start 07/07/19 at 08:56; Stop 07/07/19 at 14:55; Status DC Albumin Human 200 ml @ 200 mls/hr 1X PRN PRN IV Hypotension; Start 07/07/19 at 09:00; Stop 07/07/19 at 14:59; Status DC Diphenhydramine HCl (Benadryl) 25 mg 1X PRN PRN IV ITCHING; Start 07/07/19 at 09:00; Stop 07/08/19 at 08:59; Status DC Diphenhydramine HCl (Benadryl) 25 mg 1X PRN PRN IV ITCHING; Start 07/07/19 at 09:00; Stop 07/08/19 at 08:59; Status DC Sodium Chloride 1,000 ml @ 400 mls/hr Q2H30M PRN IV PATENCY; Start 07/07/19 at 08:56; Stop 07/07/19 at 20:55; Status DC Info (PHARMACY MONITORING -- do not chart) 1 each PRN DAILY PRN MC SEE COMMENTS; Start 07/07/19 at 09:00; Status UNV Info (PHARMACY MONITORING -- do not chart) 1 each PRN DAILY PRN MC SEE COMMENTS; Start 07/07/19 at 09:00; Stop 07/08/19 at 08:13; Status DC Digoxin (Lanoxin) 500 mcg 1X ONCE IV Last administered on 07/07/19at 10:04; Start 07/07/19 at 10:00; Stop 07/07/19 at 10:01; Status DC Digoxin (Lanoxin) 125 mcg 1X ONCE IV Last administered on 07/07/19at 17:10; Start 07/07/19 at 18:00; Stop 07/07/19 at 18:01; Status DC Magnesium Sulfate 100 ml @ 25 mls/hr 1X ONCE IV Last administered on 07/07/19at 12:48; Start 07/07/19 at 13:00; Stop 07/07/19 at 16:59; Status DC Sodium Chloride 90 meq/Magnesium Sulfate 10 meq/ Calcium Gluconate 20 meq/ Multivitamins 10 ml/Chromium/ Copper/Manganese/ Seleni/Zn 0.5 ml/ Total Parenteral Nutrition/Amino Acids/Dextrose/ Fat Emulsion Intravenous 1,512 ml @ 63 mls/hr TPN CONT IV Last administered on 07/07/19at 22:25; Start 07/07/19 at 22:00; Stop 07/08/19 at 21:59; Status DC Sodium Chloride 1,000 ml @ 1,000 mls/hr Q1H PRN IV hypotension; Start 07/08/19 at 08:05; Stop 07/08/19 at 14:04; Status DC Albumin Human 200 ml @ 200 mls/hr 1X ONCE IV Last administered on 07/08/19at 08:57; Start 07/08/19 at 08:15; Stop 07/08/19 at 09:14; Status DC Diphenhydramine HCl (Benadryl) 25 mg 1X PRN PRN IV ITCHING; Start 07/08/19 at 08:15; Stop 07/09/19 at 08:14; Status DC Diphenhydramine HCl (Benadryl) 25 mg 1X PRN PRN IV ITCHING; Start 07/08/19 at 08:15; Stop 07/09/19 at 08:14; Status DC Sodium Chloride 1,000 ml @ 400 mls/hr Q2H30M PRN IV PATENCY; Start 07/08/19 at 08:05; Stop 07/08/19 at 20:04; Status DC Info (PHARMACY MONITORING -- do not chart) 1 each PRN DAILY PRN MC SEE COMMENTS; Start 07/08/19 at 08:15; Stop 07/12/19 at 07:57; Status DC Sodium Chloride 90 meq/Potassium Chloride 15 meq/ Potassium Phosphate 10 mmol/ Magnesium Sulfate 10 meq/Calcium Gluconate 20 meq/ Multivitamins 10 ml/Chromium/ Copper/Manganese/ Seleni/Zn 0.5 ml/ Total Parenteral Nutrition/Amino Acids/Dextrose/ Fat Emulsion Intravenous 1,512 ml @ 63 mls/hr TPN CONT IV Last administered on 07/08/19at 21:01; Start 07/08/19 at 22:00; Stop 07/09/19 at 21:59; Status DC Potassium Chloride/Water 100 ml @ 100 mls/hr 1X ONCE IV Last administered on 07/08/19at 14:09; Start 07/08/19 at 14:00; Stop 07/08/19 at 14:59; Status DC Benzocaine (Hurricaine One) 1 spray 1X ONCE MM Last administered on 07/08/19at 16:38; Start 07/08/19 at 14:30; Stop 07/08/19 at 14:31; Status DC Lidocaine HCl (Glydo (Lidocaine) Jelly) 1 ramu 1X ONCE MM Last administered on 07/08/19at 16:38; Start 07/08/19 at 14:30; Stop 07/08/19 at 14:31; Status DC Linezolid/Dextrose 300 ml @ 300 mls/hr Q12HR IV Last administered on 07/14/19at 21:04; Start 07/08/19 at 20:00; Stop 07/15/19 at 07:50; Status DC Acetaminophen (Tylenol) 650 mg PRN Q6HRS PRN PO MILD PAIN / TEMP; Start 07/09/19 at 03:30; Stop 07/09/19 at 03:36; Status DC Acetaminophen (Tylenol) 650 mg PRN Q6HRS PRN PEG MILD PAIN / TEMP Last administered on 08/04/19at 19:56; Start 07/09/19 at 03:36 Sodium Chloride 1,000 ml @ 1,000 mls/hr Q1H PRN IV hypotension; Start 07/09/19 at 07:50; Stop 07/09/19 at 13:49; Status DC Albumin Human 200 ml @ 200 mls/hr 1X PRN PRN IV Hypotension; Start 07/09/19 at 08:00; Stop 07/09/19 at 13:59; Status DC Sodium Chloride (Normal Saline Flush) 10 ml 1X PRN PRN IV AP catheter pack; Start 07/09/19 at 08:00; Stop 07/10/19 at 07:59; Status DC Sodium Chloride (Normal Saline Flush) 10 ml 1X PRN PRN IV COURT CLERK catheter pack; Start 07/09/19 at 08:00; Stop 07/10/19 at 07:59; Status DC Sodium Chloride 1,000 ml @ 400 mls/hr Q2H30M PRN IV PATENCY; Start 07/09/19 at 07:50; Stop 07/09/19 at 19:49; Status DC Info (PHARMACY MONITORING -- do not chart) 1 each PRN DAILY PRN MC SEE COMMENTS; Start 07/09/19 at 08:00; Status UNV Info (PHARMACY MONITORING -- do not chart) 1 each PRN DAILY PRN MC SEE COMMENTS; Start 07/09/19 at 08:00; Stop 07/11/19 at 08:25; Status DC Sodium Chloride 90 meq/Potassium Chloride 15 meq/ Potassium Phosphate 10 mmol/ Magnesium Sulfate 10 meq/Calcium Gluconate 20 meq/ Multivitamins 10 ml/Chromium/ Copper/Manganese/ Seleni/Zn 0.5 ml/ Total Parenteral Nutrition/Amino Acids/Dextrose/ Fat Emulsion Intravenous 1,512 ml @ 63 mls/hr TPN CONT IV Last administered on 07/09/19at 20:57; Start 07/09/19 at 22:00; Stop 07/10/19 at 21:59; Status DC Sodium Chloride 90 meq/Potassium Chloride 15 meq/ Potassium Phosphate 15 mmol/ Magnesium Sulfate 10 meq/Calcium Gluconate 20 meq/ Multivitamins 10 ml/Chromium/ Copper/Manganese/ Seleni/Zn 0.5 ml/ Total Parenteral Nutrition/Amino Acids/Dextrose/ Fat Emulsion Intravenous 1,512 ml @ 63 mls/hr TPN CONT IV ; Start 07/10/19 at 22:00; Stop 07/10/19 at 14:16; Status DC Sodium Chloride 90 meq/Potassium Chloride 15 meq/ Potassium Phosphate 15 mmol/ Magnesium Sulfate 10 meq/Calcium Gluconate 20 meq/ Multivitamins 10 ml/Chromium/ Copper/Manganese/ Seleni/Zn 0.5 ml/ Total Parenteral Nutrition/Amino Acids/Dextrose/ Fat Emulsion Intravenous 1,200 ml @ 50 mls/hr TPN CONT IV ; Start 07/10/19 at 22:00; Stop 07/10/19 at 14:17; Status DC Sodium Chloride 90 meq/Potassium Chloride 15 meq/ Potassium Phosphate 10 mmol/ Magnesium Sulfate 10 meq/Calcium Gluconate 20 meq/ Multivitamins 10 ml/Chromium/ Copper/Manganese/ Seleni/Zn 0.5 ml/ Total Parenteral Nutrition/Amino Acids/Dextrose/ Fat Emulsion Intravenous 1,200 ml @ 50 mls/hr TPN CONT IV Last administered on 07/10/19at 23:29; Start 07/10/19 at 22:00; Stop 07/11/19 at 21:59; Status DC Sodium Chloride 1,000 ml @ 1,000 mls/hr Q1H PRN IV hypotension; Start 07/11/19 at 07:28; Stop 07/11/19 at 13:27; Status DC Albumin Human 200 ml @ 200 mls/hr 1X ONCE IV Last administered on 07/11/19at 08:51; Start 07/11/19 at 07:30; Stop 07/11/19 at 08:29; Status DC Diphenhydramine HCl (Benadryl) 25 mg 1X PRN PRN IV ITCHING; Start 07/11/19 at 07:30; Stop 07/12/19 at 07:29; Status DC Diphenhydramine HCl (Benadryl) 25 mg 1X PRN PRN IV ITCHING; Start 07/11/19 at 07:30; Stop 07/12/19 at 07:29; Status DC Sodium Chloride 1,000 ml @ 400 mls/hr Q2H30M PRN IV PATENCY; Start 07/11/19 at 07:28; Stop 07/11/19 at 19:27; Status DC Info (PHARMACY MONITORING -- do not chart) 1 each PRN DAILY PRN MC SEE COMMENTS; Start 07/11/19 at 07:30; Stop 07/22/19 at 13:01; Status DC Metronidazole 100 ml @ 100 mls/hr Q6HRS IV Last administered on 07/27/19at 06:26; Start 07/11/19 at 08:30; Stop 07/27/19 at 09:58; Status DC Micafungin Sodium 100 mg/Dextrose 100 ml @ 100 mls/hr Q24H IV Last administered on 08/18/19at 08:18; Start 07/11/19 at 09:00; Stop 08/18/19 at 20:58; Status DC Propofol 0 ml @ As Directed STK-MED ONCE IV ; Start 07/11/19 at 07:53; Stop 07/11/19 at 07:53; Status DC Etomidate (Amidate) 20 mg STK-MED ONCE IV ; Start 07/11/19 at 07:53; Stop 07/11/19 at 07:54; Status DC Midazolam HCl (Versed) 5 mg STK-MED ONCE .ROUTE ; Start 07/11/19 at 07:57; Stop 07/11/19 at 07:57; Status DC Fentanyl Citrate 30 ml @ 0 mls/hr CONT PRN IV SEE PROTOCOL Last administered on 08/05/19at 06:12; Start 07/11/19 at 08:15; Stop 08/05/19 at 09:19; Status DC Artificial Tears (Artificial Tears) 1 drop PRN Q1HR PRN OU DRY EYE, 1st choice; Start 07/11/19 at 08:15; Stop 08/17/19 at 05:31; Status DC Midazolam HCl 50 mg/Sodium Chloride 50 ml @ 0 mls/hr CONT PRN IV SEE PROTOCOL Last administered on 07/14/19at 22:39; Start 07/11/19 at 08:15; Stop 07/16/19 at 15:59; Status DC Etomidate (Amidate) 8 mg 1X ONCE IV Last administered on 07/11/19at 08:33; Sta rt 07/11/19 at 08:30; Stop 07/11/19 at 08:31; Status DC Succinylcholine Chloride (Anectine) 120 mg 1X ONCE IV Last administered on 07/11/19at 08:34; Start 07/11/19 at 08:30; Stop 07/11/19 at 08:31; Status DC Midazolam HCl (Versed) 5 mg 1X ONCE IV ; Start 07/11/19 at 08:30; Stop 07/11/19 at 08:31; Status DC Potassium Chloride 15 meq/ Bicarbonate Dialysis Soln w/ out KCl 5,007.5 ml @ 1,000 mls/ hr Q5H1M IV Last administered on 07/12/19at 11:11; Start 07/11/19 at 12:00; Stop 07/12/19 at 11:15; Status DC Potassium Chloride 15 meq/ Bicarbonate Dialysis Soln w/ out KCl 5,007.5 ml @ 1,000 mls/ hr Q5H1M IV Last administered on 07/12/19at 11:12; Start 07/11/19 at 12:00; Stop 07/12/19 at 11:17; Status DC Potassium Chloride 15 meq/ Bicarbonate Dialysis Soln w/ out KCl 5,007.5 ml @ 1,000 mls/ hr Q5H1M IV Last administered on 07/12/19at 11:11; Start 07/11/19 at 12:00; Stop 07/12/19 at 11:19; Status DC Sodium Chloride 90 meq/Potassium Chloride 15 meq/ Potassium Phosphate 10 mmol/ Magnesium Sulfate 10 meq/Calcium Gluconate 20 meq/ Multivitamins 10 ml/Chromium/ Copper/Manganese/ Seleni/Zn 0.5 ml/ Total Parenteral Nutrition/Amino Acids/Dextr ose/ Fat Emulsion Intravenous 1,400 ml @ 58.333 mls/ hr TPN CONT IV Last administered on 07/11/19at 21:42; Start 07/11/19 at 22:00; Stop 07/12/19 at 21:59; Status DC Heparin Sodium (Porcine) (Heparin Sodium) 5,000 unit Q8HRS SQ Last administered on 07/16/19at 05:55; Start 07/11/19 at 15:00; Stop 07/16/19 at 13:28; Status DC Meropenem 500 mg/ Sodium Chloride 50 ml @ 100 mls/hr Q6HRS IV Last administered on 07/13/19at 06:00; Start 07/12/19 at 09:00; Stop 07/13/19 at 07:29; Status DC Potassium Phosphate 20 mmol/ Sodium Chloride 106.6667 ml @ 51.667 m... 1X ONCE IV Last administered on 07/12/19at 11:22; Start 07/12/19 at 10:15; Stop 07/12/19 at 12:18; Status DC Acetaminophen (Tylenol Supp) 650 mg PRN Q6HRS PRN DC MILD PAIN / TEMP > 100.3'F Last administered on 08/23/19at 09:12; Start 07/12/19 at 10:30 Potassium Chloride/Water 100 ml @ 100 mls/hr Q1H IV Last administered on 07/11at 12:12; Start 07/12/19 at 11:00; Stop 07/12/19 at 12:59; Status DC Potassium Chloride 20 meq/ Bicarbonate Dialysis Soln w/ out KCl 5,010 ml @ 1,000 mls/hr Q5H1M IV Last administered on 07/13/19at 08:48; Start 07/12/19 at 12:00; Stop 07/13/19 at 13:03; Status DC Potassium Chloride 20 meq/ Bicarbonate Dialysis Soln w/ out KCl 5,010 ml @ 1,000 mls/hr Q5H1M IV Last administered on 07/17/19at 14:52; Start 07/12/19 at 11:30; Stop 07/17/19 at 19:59; Status DC Potassium Chloride 20 meq/ Bicarbonate Dialysis Soln w/ out KCl 5,010 ml @ 1,000 mls/hr Q5H1M IV Last administered on 07/17/19at 14:53; Start 07/12/19 at 11:30; Stop 07/17/19 at 19:59; Status DC Sodium Chloride 90 meq/Potassium Chloride 15 meq/ Potassium Phosphate 15 mmol/ Magnesium Sulfate 10 meq/Calcium Gluconate 15 meq/ Multivitamins 10 ml/Chromium/ Copper/Manganese/ Seleni/Zn 0.5 ml/ Total Parenteral Nutrition/Amino Aci ds/Dextrose/ Fat Emulsion Intravenous 1,400 ml @ 58.333 mls/ hr TPN CONT IV Last administered on 07/12/19at 22:17; Start 07/12/19 at 22:00; Stop 07/13/19 at 21:59; Status DC Cefepime HCl (Maxipime) 2 gm Q12HR IVP Last administered on 07/26/19at 20:56; S tart 07/13/19 at 09:00; Stop 07/27/19 at 09:58; Status DC Daptomycin 500 mg/ Sodium Chloride 50 ml @ 100 mls/hr Q48H IV Last ad ministered on 07/29/19at 09:57; Start 07/13/19 at 08:30; Stop 07/29/19 at 10:07; Status DC Lidocaine HCl (Buffered Lidocaine 1%) 3 ml 1X ONCE INJ Last administered on 07/13/19at 10:27; Start 07/13/19 at 10:30; Stop 07/13/19 at 10:31; Status DC Potassium Phosphate 20 mmol/ Sodium Chloride 106.6667 ml @ 51.667 m... 1X ONCE IV Last administered on 07/13/19at 12:51; Start 07/13/19 at 13:00; Stop 07/13/19 at 15:03; Status DC Sodium Chloride 90 meq/Potassium Chloride 15 meq/ Potassium Phosphate 18 mmol/ Magnesium Sulfate 8 meq/Calcium Gluconate 15 meq/ Multivitamins 10 ml/Chromium/ Copper/Manganese/ Seleni/Zn 0.5 ml/ Total Parenteral Nutrition/Amino Acids/Dextrose/ Fat Emulsion Intravenous 1,400 ml @ 58.333 mls/ hr TPN CONT IV Last administered on 07/13/19at 22:16; Start 07/13/19 at 22:00; Stop 07/14/19 at 21:59; Status DC Potassium Chloride 20 meq/ Bicarbonate Dialysis Soln w/ out KCl 5,010 ml @ 1,000 mls/hr Q5H1M IV Last administered on 07/17/19at 14:54; Start 07/13/19 at 16:00; Stop 07/17/19 at 19:59; Status DC Multi-Ingred Cream/Lotion/Oil/ Oint (Artificial Tears Eye Ointment) 1 ramu PRN Q1HR PRN OU DRY EYE, 2nd choice Last administered on 08/01/19at 08:19; Start 07/13/19 at 17:30 Sodium Chloride 90 meq/Potassium Chloride 15 meq/ Potassium Phosphate 18 mmol/ Magnesium Sulfate 8 meq/Calcium Gluconate 15 meq/ Multivitamins 10 ml/Chromium/ Copper/Manganese/ Seleni/Zn 0.5 ml/ Total Parenteral Nutrition/Amino Acids/Dextrose/ Fat Emulsion Intravenous 1,400 ml @ 58.333 mls/ hr TPN CONT IV Last administered on 07/14/19at 22:00; Start 07/14/19 at 22:00; Stop 07/15/19 at 21:59; Status DC Albumin Human 500 ml @ 125 mls/hr 1X ONCE IV ; Start 07/14/19 at 14:15; Stop 07/14/19 at 18:14; Status DC Sodium Chloride 90 meq/Potassium Chloride 15 meq/ Potassium Phosphate 18 mmol/ Magnesium Sulfate 8 meq/Calcium Gluconate 15 meq/ Multivitamins 10 ml/Chromium/ Copper/Manganese/ Seleni/Zn 0.5 ml/ Insulin Human Regular 10 unit/ Total Parenteral Nutrition/Amino Acids/Dextrose/ Fat Emulsion Intravenous 1,400 ml @ 58.333 mls/ hr TPN CONT IV Last administered on 07/15/19at 21:43; Start 07/15/19 at 22:00; Stop 07/16/19 at 21:59; Status DC Lidocaine HCl (Buffered Lidocaine 1%) 3 ml STK-MED ONCE .ROUTE ; Start 07/13/19 at 10:00; Stop 07/15/19 at 13:57; Status DC Midazolam HCl 100 mg/Sodium Chloride 100 ml @ 7 mls/hr CONT PRN IV SEE PROTOCOL Last administered on 07/27/19at 15:35; Start 07/16/19 at 16:00 Sodium Chloride 90 meq/Potassium Chloride 15 meq/ Potassium Phosphate 18 mmol/ Magnesium Sulfate 8 meq/Calcium Gluconate 15 meq/ Multivitamins 10 ml/Chromium/ Copper/Manganese/ Seleni/Zn 0.5 ml/ Insulin Human Regular 15 unit/ Total Parenteral Nutrition/Amino Acids/Dextrose/ Fat Emulsion Intravenous 1,400 ml @ 58.333 mls/ hr TPN CONT IV Last administered on 07/16/19at 20:34; Start 07/16/19 at 22:00; Stop 07/17/19 at 21:59; Status DC Info (Icu Electrolyte Protocol) 1 ea CONT PRN PRN MC PER PROTOCOL; Start 07/17/19 at 13:15 Sodium Chloride 90 meq/Potassium Chloride 15 meq/ Potassium Phosphate 18 mmol/ Magnesium Sulfate 8 meq/Calcium Gluconate 15 meq/ Multivitamins 10 ml/Chromium/ Copper/Manganese/ Seleni/Zn 0.5 ml/ Insulin Human Regular 15 unit/ Total Janett ral Nutrition/Amino Acids/Dextrose/ Fat Emulsion Intravenous 1,400 ml @ 58.333 mls/ hr TPN CONT IV Last administered on 07/17/19at 22:05; Start 07/17/19 at 22:00; Stop 07/18/19 at 21:59; Status DC Potassium Chloride 15 meq/ Bicarbonate Dialysis Soln w/ out KCl 5,007.5 ml @ 1,000 mls/ hr Q5H1M IV Last administered on 07/20/19at 18:14; Start 07/17/19 at 20:00; Stop 07/21/19 at 13:08; Status DC Potassium Chloride 15 meq/ Bicarbonate Dialysis Soln w/ out KCl 5,007.5 ml @ 1,000 mls/ hr Q5H1M IV Last administered on 07/20/19at 18:14; Start 07/17/19 at 20:00; Stop 07/21/19 at 13:08; Status DC Potassium Chloride 15 meq/ Bicarbonate Dialysis Soln w/ out KCl 5,007.5 ml @ 1,000 mls/ hr Q5H1M IV Last administered on 07/20/19at 18:14; Start 07/17/19 at 20:00; Stop 07/21/19 at 13:08; Status DC Iohexol (Omnipaque 240 Mg/ml) 30 ml 1X ONCE PO Last administered on 07/18/19at 11:30; Start 07/18/19 at 11:30; Stop 07/18/19 at 11:33; Status DC Info (CONTRAST GIVEN -- Rx MONITORING) 1 each PRN DAILY PRN MC SEE COMMENTS; Start 07/18/19 at 11:45; Stop 07/20/19 at 11:44; Status DC Sodium Chloride 90 meq/Potassium Chloride 15 meq/ Potassium Phosphate 18 mmol/ Magnesium Sulfate 8 meq/Calcium Gluconate 15 meq/ Multivitamins 10 ml/Chromium/ Copper/Manganese/ Seleni/Zn 0.5 ml/ Insulin Human Regular 15 unit/ Total Parenteral Nutrition/Amino Acids/Dextrose/ Fat Emulsion Intravenous 1,400 ml @ 58.333 mls/ hr TPN CONT IV Last administered on 07/18/19at 21:47; Start 07/18/19 at 22:00; Stop 07/19/19 at 21:59; Status DC Sodium Chloride 90 meq/Potassium Chloride 15 meq/ Potassium Phosphate 18 mmol/ Magnesium Sulfate 8 meq/Calcium Gluconate 15 meq/ Multivitamins 10 ml/Chromium/ Copper/Manganese/ Seleni/Zn 0.5 ml/ Insulin Human Regular 20 unit/ Total Parenteral Nutrition/Amino Acids/Dextrose/ Fat Emulsion Intravenous 1,400 ml @ 58.333 mls/ hr TPN CONT IV Last administered on 07/19/19at 21:36; Start 07/19/19 at 22:00; Stop 07/20/19 at 21:59; Status DC Alteplase, Recombinant (Cathflo For Central Catheter Clearance) 1 mg 1X ONCE INT CAT Last administered on 07/19/19at 20:03; Start 07/19/19 at 19:30; Stop 07/19/19 at 19:46; Status DC Alteplase, Recombinant (Cathflo For Central Catheter Clearance) 1 mg 1X ONCE INT CAT Last administered on 07/19/19at 22:05; Start 07/19/19 at 22:00; Stop 07/19/19 at 22:01; Status DC Sodium Chloride 90 meq/Potassium Chloride 15 meq/ Potassium Phosphate 18 mmol/ Magnesium Sulfate 8 meq/Calcium Gluconate 15 meq/ Multivitamins 10 ml/Chromium/ Copper/Manganese/ Seleni/Zn 0.5 ml/ Insulin Human Regular 20 unit/ Total Par enteral Nutrition/Amino Acids/Dextrose/ Fat Emulsion Intravenous 1,400 ml @ 58.333 mls/ hr TPN CONT IV Last administered on 07/20/19at 21:30; Start 07/20/19 at 22:00; Stop 07/21/19 at 21:59; Status DC Dexmedetomidine HCl 400 mcg/ Sodium Chloride 100 ml @ 0 mls/hr CONT PRN IV ANXIETY / AGITATION Last administered on 08/25/19at 12:25; Start 07/21/19 at 08:15 Sodium Chloride 500 ml @ 500 mls/hr 1X PRN PRN IV ELEVATED BP, SEE COMMENTS; Start 07/21/19 at 08:15 Atropine Sulfate (ATROPINE 0.5mg SYRINGE) 0.5 mg PRN Q5MIN PRN IV SEE COMMENTS; Start 07/21/19 at 08:15 Furosemide (Lasix) 20 mg 1X ONCE IVP Last administered on 07/21/19at 08:19; Start 07/21/19 at 08:15; Stop 07/21/19 at 08:16; Status DC Lidocaine HCl (Buffered Lidocaine 1%) 3 ml STK-MED ONCE .ROUTE ; Start 07/21/19 at 08:39; Stop 07/21/19 at 08:39; Status DC Lidocaine HCl (Buffered Lidocaine 1%) 6 ml 1X ONCE INJ Last administered on 07/21/19at 09:05; Start 07/21/19 at 09:00; Stop 07/21/19 at 09:06; Status DC Sodium Chloride 90 meq/Potassium Chloride 15 meq/ Potassium Phosphate 18 mmol/ Magnesium Sulfate 8 meq/Calcium Gluconate 15 meq/ Multivitamins 10 ml/Chromium/ Copper/Manganese/ Seleni/Zn 0.5 ml/ Insulin Human Regular 20 unit/ Total Parenteral Nutrition/Amino Acids/Dextrose/ Fat Emulsion Intravenous 1,400 ml @ 58.333 mls/ hr TPN CONT IV Last administered on 07/21/19at 22:45; Start 07/21/19 at 22:00; Stop 07/22/19 at 21:59; Status DC Sodium Chloride 1,000 ml @ 1,000 mls/hr Q1H PRN IV hypotension; Start 07/22/19 at 07:30; Stop 07/22/19 at 13:29; Status DC Albumin Human 200 ml @ 200 mls/hr 1X PRN PRN IV Hypotension Last administered on 07/22/19at 09:36; Start 07/22/19 at 07:30; Stop 07/22/19 at 13:29; Status DC Sodium Chloride (Normal Saline Flush) 10 ml 1X PRN PRN IV AP catheter pack; Start 07/22/19 at 07:30; Stop 07/22/19 at 21:29; Status DC Sodium Chloride (Normal Saline Flush) 10 ml 1X PRN PRN IV COURT CLERK catheter pack; Start 07/22/19 at 07:30; Stop 07/23/19 at 07:29; Status DC Sodium Chloride 1,000 ml @ 400 mls/hr Q2H30M PRN IV PATENCY; Start 07/22/19 at 07:30; Stop 07/22/19 at 19:29; Status DC Info (PHARMACY MONITORING -- do not chart) 1 each PRN DAILY PRN MC SEE COMMENTS; Start 07/22/19 at 07:30; Stop 07/22/19 at 13:02; Status DC Info (PHARMACY MONITORING -- do not chart) 1 each PRN DAILY PRN MC SEE COMMENTS; Start 07/22/19 at 07:30; Stop 07/24/19 at 12:45; Status DC Sodium Chloride 90 meq/Potassium Chloride 15 meq/ Potassium Phosphate 10 mmol/ Magnesium Sulfate 8 meq/Calcium Gluconate 15 meq/ Multivitamins 10 ml/Chromium/ Copper/Manganese/ Seleni/Zn 0.5 ml/ Insulin Human Regular 25 unit/ Total Parenteral Nutrition/Amino Acids/Dextrose/ Fat Emulsion Intravenous 1,400 ml @ 58.333 mls/ hr TPN CONT IV Last administered on 07/22/19at 22:19; Start 07/22/19 at 22:00; Stop 07/23/19 at 21:59; Status DC Heparin Sodium (Porcine) (Heparin Sodium) 5,000 unit Q12HR SQ Last administered on 08/14/19at 08:59; Start 07/22/19 at 21:00; Stop 08/14/19 at 10:05; Status DC Ondansetron HCl (Zofran) 4 mg PRN Q6HRS PRN IV NAUSEA/VOMITING; Start 07/25/19 at 07:00; Stop 07/26/19 at 06:59; Status DC Fentanyl Citrate (Fentanyl 2ml Vial) 25 mcg PRN Q5MIN PRN IV MILD PAIN 1-3; Start 07/25/19 at 07:00; Stop 07/26/19 at 06:59; Status DC Fentanyl Citrate (Fentanyl 2ml Vial) 50 mcg PRN Q5MIN PRN IV MODERATE TO SEVERE PAIN; Start 07/25/19 at 07:00; Stop 07/26/19 at 06:59; Status DC Ringer's Solution 1,000 ml @ 30 mls/hr Q24H IV ; Start 07/25/19 at 07:00; Stop 07/25/19 at 18:59; Status DC Lidocaine HCl (Xylocaine-Mpf 1% 2ml Vial) 2 ml PRN 1X PRN ID PRIOR TO IV START; Start 07/25/19 at 07:00; Stop 07/26/19 at 06:59; Status DC Prochlorperazine Edisylate (Compazine) 5 mg PACU PRN PRN IV NAUSEA, MRX1; Start 07/25/19 at 07:00; Stop 07/26/19 at 06:59; Status DC Sodium Chloride 1,000 ml @ 1,000 mls/hr Q1H PRN IV hypotension; Start 07/23/19 at 09:10; Stop 07/23/19 at 15:09; Status DC Albumin Human 200 ml @ 200 mls/hr 1X PRN PRN IV Hypotension Last administered on 07/23/19at 10:10; Start 07/23/19 at 09:15; Stop 07/23/19 at 15:14; Status DC Sodium Chloride 1,000 ml @ 400 mls/hr Q2H30M PRN IV PATENCY; Start 07/23/19 at 09:10; Stop 07/23/19 at 21:09; Status DC Info (PHARMACY MONITORING -- do not chart) 1 each PRN DAILY PRN MC SEE COMMENTS; Start 07/23/19 at 09:15; Stop 07/24/19 at 12:45; Status DC Info (PHARMACY MONITORING -- do not chart) 1 each PRN DAILY PRN MC SEE COM MENTS; Start 07/23/19 at 09:15; Stop 07/24/19 at 12:45; Status DC Sodium Chloride 90 meq/Potassium Chloride 15 meq/ Potassium Phosphate 10 mmol/ Magnesium Sulfate 8 meq/Calcium Gluconate 15 meq/ Multivitamins 10 ml/Chromium/ Copper/Manganese/ Seleni/Zn 0.5 ml/ Insulin Human Regular 25 unit/ Total Parenteral Nutrition/Amino Acids/Dextrose/ Fat Emulsion Intravenous 1,400 ml @ 58.333 mls/ hr TPN CONT IV Last administered on 07/23/19at 22:10; Start 07/23/19 at 22:00; Stop 07/24/19 at 21:59; Status DC Magnesium Sulfate 50 ml @ 25 mls/hr PRN DAILY PRN IV for Mag < 1.7 on am labs Last administered on 08/08/19at 17:27; Start 07/24/19 at 09:15 Sodium Chloride 90 meq/Potassium Chloride 15 meq/ Potassium Phosphate 10 mmol/ Magnesium Sulfate 8 meq/Calcium Gluconate 15 meq/ Multivitamins 10 ml/Chromium/ Copper/Manganese/ Seleni/Zn 0.5 ml/ Insulin Human Regular 25 unit/ Total Parenteral Nutrition/Amino Acids/Dextrose/ Fat Emulsion Intravenous 1,400 ml @ 58.333 mls/ hr TPN CONT IV Last administered on 07/24/19at 21:20; Start 07/24/19 at 22:00; Stop 07/25/19 at 21:59; Status DC Sodium Chloride 1,000 ml @ 1,000 mls/hr Q1H PRN IV hypotension; Start 07/24/19 at 12:23; Stop 07/24/19 at 18:22; Status DC Albumin Human 200 ml @ 200 mls/hr 1X ONCE IV Last administered on 07/24/19at 13 :34; Start 07/24/19 at 12:30; Stop 07/24/19 at 13:29; Status DC Diphenhydramine HCl (Benadryl) 25 mg 1X PRN PRN IV ITCHING; Start 07/24/19 at 12:30; Stop 07/25/19 at 12:29; Status DC Diphenhydramine HCl (Benadryl) 25 mg 1X PRN PRN IV ITCHING; Start 07/24/19 at 12:30; Stop 07/25/19 at 12:29; Status DC Info (PHARMACY MONITORING -- do not chart) 1 each PRN DAILY PRN MC SEE COMMENTS; Start 07/24/19 at 12:30; Status Cancel Bupivacaine HCl/ Epinephrine Bitart (Sensorcain-Epi 0.5%-1:[id number] Mpf) 30 ml STK-MED ONCE .ROUTE Last administered on 07/25/19at 11:44; Start 07/25/19 at 11:00; Stop 07/25/19 at 11:01; Status DC Cellulose (Surgicel Fibrillar 1x2) 1 each STK-MED ONCE .ROUTE ; Start 07/25/19 at 11:00; Stop 07/25/19 at 11:01; Status DC Sodium Chloride 90 meq/Potassium Chloride 15 meq/ Potassium Phosphate 10 mmol/ Magnesium Sulfate 12 meq/Calcium Gluconate 15 meq/ Multivitamins 10 ml/Chromium/ Copper/Manganese/ Seleni/Zn 0.5 ml/ Insulin Human Regular 25 unit/ Total Parenteral Nutrition/Amino Acids/Dextrose/ Fat Emulsion Intravenous 1,400 ml @ 58.333 mls/ hr TPN CONT IV Last administered on 07/25/19at 22:24; Start 07/25/19 at 22:00; Stop 07/26/19 at 21:59; Status DC Propofol 20 ml @ As Directed STK-MED ONCE IV ; Start 07/25/19 at 11:07; Stop 07/25/19 at 11:07; Status DC Cellulose (Surgicel Hemostat 4x8) 1 each STK-MED ONCE .ROUTE Last administered on 07/25/19at 11:44; Start 07/25/19 at 11:55; Stop 07/25/19 at 11:56; Status DC Sevoflurane (Ultane) 60 ml STK-MED ONCE IH ; Start 07/25/19 at 12:46; Stop 07/25/19 at 12:46; Status DC Sodium Chloride 1,000 ml @ 1,000 mls/hr Q1H PRN IV hypotension; Start 07/25/19 at 13:51; Stop 07/25/19 at 19:50; Status DC Albumin Human 200 ml @ 200 mls/hr 1X PRN PRN IV Hypotension Last administered on 07/25/19at 14:51; Start 07/25/19 at 14:00; Stop 07/25/19 at 19:59; Status DC Diphenhydramine HCl (Benadryl) 25 mg 1X PRN PRN IV ITCHING; Start 07/25/19 at 14:00; Stop 07/26/19 at 13:59; Status DC Diphenhydramine HCl (Benadryl) 25 mg 1X PRN PRN IV ITCHING; Start 07/25/19 at 14:00; Stop 07/26/19 at 13:59; Status DC Sodium Chloride 1,000 ml @ 400 mls/hr Q2H30M PRN IV PATENCY; Start 07/25/19 at 13:51; Stop 07/26/19 at 01:50; Status DC Info (PHARMACY MONITORING -- do not chart) 1 each PRN DAILY PRN MC SEE COMMENTS; Start 07/25/19 at 14:00; Stop 07/28/19 at 08:16; Status DC Heparin Sodium (Porcine) (Hep Lock Adult) 500 unit STK-MED ONCE IVP ; Start 07/26/19 at 09:29; Stop 07/26/19 at 09:30; Status DC Sodium Chloride 1,000 ml @ 1,000 mls/hr Q1H PRN IV hypotension; Start 07/26/19 at 10:43; Stop 07/26/19 at 16:42; Status DC Sodium Chloride 1,000 ml @ 400 mls/hr Q2H30M PRN IV PATENCY; Start 07/26/19 at 10:43; Stop 07/26/19 at 22:42; Status DC Info (PHARMACY MONITORING -- do not chart) 1 each PRN DAILY PRN MC SEE COMMENTS; Start 07/26/19 at 10:45; Status UNV Info (PHARMACY MONITORING -- do not chart) 1 each PRN DAILY PRN MC SEE COMMENTS; Start 07/26/19 at 10:45; Status UNV Sodium Chloride 90 meq/Potassium Chloride 15 meq/ Magnesium Sulfate 12 meq/Calcium Gluconate 15 meq/ Multivitamins 10 ml/Chromium/ Copper/Manganese/ Seleni/Zn 0.5 ml/ Insulin Human Regular 25 unit/ Total Parenteral Nutrition/Amino Acids/Dextrose/ Fat Emulsion Intravenous 1,400 ml @ 58.333 mls/ hr TPN CONT IV Last administered on 07/26/19at 22:13; Start 07/26/19 at 22:00; Stop 07/27/19 at 21:59; Status DC Sodium Chloride 1,000 ml @ 1,000 mls/hr Q1H PRN IV hypotension; Start 07/27/19 at 07:50; Stop 07/27/19 at 13:49; Status DC Albumin Human 200 ml @ 200 mls/hr 1X ONCE IV ; Start 07/27/19 at 08:00; Stop 07/27/19 at 08:53; Status DC Diphenhydramine HCl (Benadryl) 25 mg 1X PRN PRN IV ITCHING; Start 07/27/19 at 08:00; Stop 07/28/19 at 07:59; Status DC Diphenhydramine HCl (Benadryl) 25 mg 1X PRN PRN IV ITCHING; Start 07/27/19 at 08:00; Stop 07/28/19 at 07:59; Status DC Info (PHARMACY MONITORING -- do not chart) 1 each PRN DAILY PRN MC SEE COMMENTS; Start 07/27/19 at 08:00; Stop 07/28/19 at 08:16; Status DC Albumin Human 50 ml @ 50 mls/hr 1X ONCE IV ; Start 07/27/19 at 08:53; Stop 07/27/19 at 08:56; Status DC Albumin Human 200 ml @ 50 mls/hr PRN 1X PRN IV HYPOTENSION Last administered on 08/02/19at 11:54; Start 07/27/19 at 09:00 Meropenem 500 mg/ Sodium Chloride 50 ml @ 100 mls/hr Q12H IV Last administered on 08/16/19at 10:45; Start 07/27/19 at 10:00; Stop 08/16/19 at 12:37; Status DC Sodium Chloride 90 meq/Magnesium Sulfate 12 meq/ Calcium Gluconate 15 meq/ Multivitamins 10 ml/Chromium/ Copper/Manganese/ Seleni/Zn 0.5 ml/ Insulin Human Regular 25 unit/ Total Parenteral Nutrition/Amino Acids/Dextrose/ Fat Emulsion Intravenous 1,400 ml @ 58.333 mls/ hr TPN CONT IV Last administered on 07/27/19at 21:41; Start 07/27/19 at 22:00; Stop 07/28/19 at 21:59; Status DC Sodium Chloride 1,000 ml @ 1,000 mls/hr Q1H PRN IV hypotension; Start 07/28/19 at 07:58; Stop 07/28/19 at 13:57; Status DC Albumin Human 200 ml @ 200 mls/hr 1X PRN PRN IV Hypotension Last administered on 07/28/19at 09:30; Start 07/28/19 at 08:00; Stop 07/28/19 at 13:59; Status DC Sodium Chloride 1,000 ml @ 400 mls/hr Q2H30M PRN IV PATENCY; Start 07/28/19 at 07:58; Stop 07/28/19 at 19:57; Status DC Info (PHARMACY MONITORING -- do not chart) 1 each PRN DAILY PRN MC SEE COMMENTS; Start 07/28/19 at 08:00; Status Cancel Info (PHARMACY MONITORING -- do not chart) 1 each PRN DAILY PRN MC SEE COMMENTS; Start 07/28/19 at 08:15; Status UNV Sodium Chloride 90 meq/Potassium Phosphate 5 mmol/ Magnesium Sulfate 12 meq/Calcium Gluconate 15 meq/ Multivitamins 10 ml/Chromium/ Copper/Manganese/ Seleni/Zn 0.5 ml/ Insulin Human Regular 30 unit/ Total Parenteral Nutrition/Amino Acids/Dextrose/ Fat Emulsion Intravenous 1,400 ml @ 58.333 mls/ hr TPN CONT IV Last administered on 07/28/19at 22:08; Start 07/28/19 at 22:00; Stop 07/29/19 at 21:59; Status DC Linezolid/Dextrose 300 ml @ 300 mls/hr Q12HR IV Last administered on 08/08/19at 20:40; Start 07/29/19 at 11:00; Stop 08/09/19 at 08:10; Status DC Sodium Chloride 90 meq/Potassium Phosphate 15 mmol/ Magnesium Sulfate 12 meq/Calcium Gluconate 15 meq/ Multivitamins 10 ml/Chromium/ Copper/Manganese/ Seleni/Zn 0.5 ml/ Insulin Human Regular 30 unit/ Total Parenteral Nutrition/Amino Acids/Dextrose/ Fat Emulsion Intravenous 1,400 ml @ 58.333 mls/ hr TPN CONT IV Last administered on 07/29/19at 21:49; Start 07/29/19 at 22:00; Stop 07/30/19 at 21:59; Status DC Sodium Chloride 90 meq/Potassium Phosphate 15 mmol/ Magnesium Sulfate 12 meq/Calcium Gluconate 15 meq/ Multivitamins 10 ml/Chromium/ Copper/Manganese/ Seleni/Zn 0.5 ml/ Insulin Human Regular 40 unit/ Total Parenteral Nutrition/Amino Acids/Dextrose/ Fat Emulsion Intravenous 1,400 ml @ 58.333 mls/ hr TPN CONT IV Last administered on 07/30/19at 21:21; Start 07/30/19 at 22:00; Stop 07/31/19 at 21:59; Status DC Sodium Chloride 1,000 ml @ 1,000 mls/hr Q1H PRN IV hypotension; Start 07/30/19 at 13:26; Stop 07/30/19 at 19:25; Status DC Albumin Human 200 ml @ 200 mls/hr 1X PRN PRN IV Hypotension Last administered on 07/30/19at 15:00; Start 07/30/19 at 13:30; Stop 07/30/19 at 19:29; Status DC Sodium Chloride (Normal Saline Flush) 10 ml 1X PRN PRN IV AP catheter pack; Start 07/30/19 at 13:30; Stop 07/31/19 at 13:29; Status DC Sodium Chloride (Normal Saline Flush) 10 ml 1X PRN PRN IV COURT CLERK catheter pack; Start 07/30/19 at 13:30; Stop 07/31/19 at 13:29; Status DC Sodium Chloride 1,000 ml @ 400 mls/hr Q2H30M PRN IV PATENCY; Start 07/30/19 at 13:26; Stop 07/31/19 at 01:25; Status DC Info (PHARMACY MONITORING -- do not chart) 1 each PRN DAILY PRN MC SEE COMMENTS; Start 07/30/19 at 13:30; Stop 07/30/19 at 13:33; Status DC Info (PHARMACY MONITORING -- do not chart) 1 each PRN DAILY PRN MC SEE COMMENTS; Start 07/30/19 at 13:30; Stop 07/30/19 at 13:34; Status DC Sodium Chloride 90 meq/Potassium Phosphate 19 mmol/ Magnesium Sulfate 12 meq/Calcium Gluconate 15 meq/ Multivitamins 10 ml/Chromium/ Copper/Manganese/ Seleni/Zn 0.5 ml/ Insulin Human Regular 40 unit/ Total Parenteral Nutrition/Amino Acids/Dextrose/ Fat Emulsion Intravenous 1,400 ml @ 58.333 mls/ hr TPN CONT IV Last administered on 07/31/19at 21:54; Start 07/31/19 at 22:00; Stop 08/01/19 at 21:59; Status DC Sodium Chloride 1,000 ml @ 1,000 mls/hr Q1H PRN IV hypotension; Start 08/01/19 at 09:35; Stop 08/01/19 at 15:34; Status DC Albumin Human 200 ml @ 200 mls/hr 1X PRN PRN IV Hypotension; Start 08/01/19 at 09:45; Stop 08/01/19 at 15:44; Status DC Diphenhydramine HCl (Benadryl) 25 mg 1X PRN PRN IV ITCHING; Start 08/01/19 at 09:45; Stop 08/02/19 at 09:44; Status DC Diphenhydramine HCl (Benadryl) 25 mg 1X PRN PRN IV ITCHING; Start 08/01/19 at 09:45; Stop 08/02/19 at 09:44; Status DC Sodium Chloride 1,000 ml @ 400 mls/hr Q2H30M PRN IV PATENCY; Start 08/01/19 at 09:35; Stop 08/01/19 at 21:34; Status DC Info (PHARMACY MONITORING -- do not chart) 1 each PRN DAILY PRN MC SEE COMMENTS; Start 08/01/19 at 09:45; Status Cancel Sodium Chloride 100 meq/Potassium Phosphate 19 mmol/ Magnesium Sulfate 12 meq/Calcium Gluconate 15 meq/ Multivitamins 10 ml/Chromium/ Copper/Manganese/ Seleni/Zn 0.5 ml/ Insulin Human Regular 40 unit/ Potassium Chloride 20 meq/ Total Parenteral Nutrition/Amino Acids/Dextrose/ Fat Emulsion Intravenous 1,400 ml @ 58.333 mls/ hr TPN CONT IV Last administered on 08/01/19at 22:02; Start 08/01/19 at 22:00; Stop 08/02/19 at 21:59; Status DC Furosemide (Lasix) 40 mg 1X ONCE IVP Last administered on 08/01/19at 14:39; Start 08/01/19 at 14:30; Stop 08/01/19 at 14:31; Status DC Metronidazole 100 ml @ 100 mls/hr Q8HRS IV Last administered on 08/09/19at 06:04; Start 08/02/19 at 10:00; Stop 08/09/19 at 08:10; Status DC Sodium Chloride 1,000 ml @ 1,000 mls/hr Q1H PRN IV hypotension; Start 08/02/19 at 08:00; Stop 08/02/19 at 13:59; Status DC Albumin Human 200 ml @ 200 mls/hr 1X PRN PRN IV Hypotension; Start 08/02/19 at 08:00; Stop 08/02/19 at 13:59; Status DC Sodium Chloride 1,000 ml @ 400 mls/hr Q2H30M PRN IV PATENCY; Start 08/02/19 at 08:00; Stop 08/02/19 at 19:59; Status DC Info (PHARMACY MONITORING -- do not chart) 1 each PRN DAILY PRN MC SEE COMMENTS; Start 08/02/19 at 11:30; Status UNV Info (PHARMACY MONITORING -- do not chart) 1 each PRN DAILY PRN MC SEE COMMENTS; Start 08/02/19 at 11:30; Stop 08/04/19 at 12:13; Status DC Sodium Chloride 100 meq/Potassium Phosphate 19 mmol/ Magnesium Sulfate 12 meq/Calcium Gluconate 15 meq/ Multivitamins 10 ml/Chromium/ Copper/Manganese/ Seleni/Zn 0.5 ml/ Insulin Human Regular 40 unit/ Potassium Chloride 20 meq/ Total Parenteral Nutrition/Amino Acids/Dextrose/ Fat Emulsion Intravenous 1,400 ml @ 58.333 mls/ hr TPN CONT IV Last administered on 08/02/19at 21:52; Start 08/02/19 at 22:00; Stop 08/03/19 at 21:59; Status DC Sodium Chloride (Normal Saline Flush) 10 ml QSHIFT PRN IV AFTER MEDS AND BLOOD DRAWS; Start 08/02/19 at 15:00 Sodium Chloride (Normal Saline Flush) 10 ml PRN Q5MIN PRN IV AFTER MEDS AND BLOOD DRAWS; Start 08/02/19 at 15:00 Sodium Chloride (Normal Saline Flush) 20 ml PRN Q5MIN PRN IV AFTER MEDS AND BLOOD DRAWS; Start 08/02/19 at 15:00 Sodium Chloride 100 meq/Potassium Phosphate 19 mmol/ Magnesium Sulfate 12 meq/Calcium Gluconate 15 meq/ Multivitamins 10 ml/Chromium/ Copper/Manganese/ Seleni/Zn 0.5 ml/ Insulin Human Regular 40 unit/ Potassium Chloride 20 meq/ Total Parenteral Nutrition/Amino Acids/Dextrose/ Fat Emulsion Intravenous 1,400 ml @ 58.333 mls/ hr TPN CONT IV Last administered on 08/03/19at 21:20; Start 08/03/19 at 22:00; Stop 08/04/19 at 21:59; Status DC Lidocaine HCl (Buffered Lidocaine 1%) 3 ml STK-MED ONCE .ROUTE ; Start 08/03/19 at 13:16; Stop 08/03/19 at 13:16; Status DC Lidocaine HCl (Buffered Lidocaine 1%) 6 ml 1X ONCE INJ Last administered on 08/03/19at 13:45; Start 08/03/19 at 13:30; Stop 08/03/19 at 13:31; Status DC Albumin Human 100 ml @ 100 mls/hr 1X ONCE IV Last administered on 08/03/19at 1 5:41; Start 08/03/19 at 15:00; Stop 08/03/19 at 15:59; Status DC Albumin Human 50 ml @ 50 mls/hr 1X ONCE IV Last administered on 08/03/19at 15:00; Start 08/03/19 at 15:00; Stop 08/03/19 at 15:59; Status DC Info (PHARMACY MONITORING -- do not chart) 1 each PRN DAILY PRN MC SEE COMMENTS; Start 08/04/19 at 11:30; Status Cancel Info (PHARMACY MONITORING -- do not chart) 1 each PRN DAILY PRN MC SEE COMMENTS; Start 08/04/19 at 11:30; Status UNV Sodium Chloride 100 meq/Potassium Phosphate 10 mmol/ Magnesium Sulfate 12 meq/Calcium Gluconate 15 meq/ Multivitamins 10 ml/Chromium/ Copper/Manganese/ Seleni/Zn 0.5 ml/ Insulin Human Regular 35 unit/ Potassium Chloride 20 meq/ Total Parenteral Nutrition/Amino Acids/Dextrose/ Fat Emulsion Intravenous 1,400 ml @ 58.333 mls/ hr TPN CONT IV Last administered on 08/04/19at 22:10; Start 08/04/19 at 22:00; Stop 08/05/19 at 21:59; Status DC Sodium Chloride 100 meq/Potassium Phosphate 5 mmol/ Magnesium Sulfate 12 meq/Calcium Gluconate 15 meq/ Multivitamins 10 ml/Chromium/ Copper/Manganese/ Seleni/Zn 0.5 ml/ Insulin Human Regular 35 unit/ Potassium Chloride 20 meq/ Total Parenteral Nutrition/Amino Acids/Dextrose/ Fat Emulsion Intravenous 1,400 ml @ 58.333 mls/ hr TPN CONT IV Last administered on 08/05/19at 22:59; Start 08/05/19 at 22:00; Stop 08/06/19 at 21:59; Status DC Sodium Chloride 1,000 ml @ 1,000 mls/hr Q1H PRN IV hypotension; Start 08/06/19 at 08:27; Stop 08/06/19 at 14:26; Status DC Albumin Human 200 ml @ 200 mls/hr 1X PRN PRN IV Hypotension Last administered on 08/06/19at 09:18; Start 08/06/19 at 08:30; Stop 08/06/19 at 14:29; Status DC Sodium Chloride 1,000 ml @ 400 mls/hr Q2H30M PRN IV PATENCY; Start 08/06/19 at 08:27; Stop 08/06/19 at 20:26; Status DC Info (PHARMACY MONITORING -- do not chart) 1 each PRN DAILY PRN MC SEE COMMENTS; Start 08/06/19 at 08:30; Status Cancel Info (PHARMACY MONITORING -- do not chart) 1 each PRN DAILY PRN MC SEE COMMENTS; Start 08/06/19 at 08:30; Stop 08/14/19 at 13:10; Status DC Sodium Chloride 100 meq/Potassium Chloride 40 meq/ Magnesium Sulfate 15 meq/Calcium Gluconate 15 meq/ Multivitamins 10 ml/Chromium/ Copper/Manganese/ Seleni/Zn 0.5 ml/ Insulin Human Regular 35 unit/ Total Parenteral Nutrition/Amino Acids/Dextrose/ Fat Emulsion Intravenous 1,400 ml @ 58.333 mls/ hr TPN CONT IV Last administered on 08/06/19at 22:00; Start 08/06/19 at 22:00; Stop 08/07/19 at 21:59; Status DC Potassium Chloride/Water 100 ml @ 100 mls/hr 1X ONCE IV Last administered on 08/06/19at 17:28; Start 08/06/19 at 14:45; Stop 08/06/19 at 15:44; Status DC Sodium Chloride 100 meq/Potassium Chloride 40 meq/ Magnesium Sulfate 15 meq/Calcium Gluconate 15 meq/ Multivitamins 10 ml/Chromium/ Copper/Manganese/ Seleni/Zn 0.5 ml/ Insulin Human Regular 35 unit/ Total Parenteral Nutrition/Amino Acids/Dextrose/ Fat Emulsion Intravenous 1,400 ml @ 58.333 mls/ hr TPN CONT IV Last administered on 08/07/19at 22:46; Start 08/07/19 at 22:00; Stop 08/08/19 at 21:59; Status DC Sodium Chloride 100 meq/Potassium Chloride 40 meq/ Magnesium Sulfate 20 meq/Calcium Gluconate 15 meq/ Multivitamins 10 ml/Chromium/ Copper/Manganese/ Seleni/Zn 0.5 ml/ Insulin Human Regular 35 unit/ Total Parenteral N utrition/Amino Acids/Dextrose/ Fat Emulsion Intravenous 1,400 ml @ 58.333 mls/ hr TPN CONT IV Last administered on 08/08/19at 22:31; Start 08/08/19 at 22:00; Stop 08/09/19 at 21:59; Status DC Fentanyl Citrate (Fentanyl 2ml Vial) 50 mcg PRN Q2HR PRN IVP PAIN Last administered on 08/15/19at 13:32; Start 08/08/19 at 21:00; Stop 08/16/19 at 12:53; Status DC Fentanyl Citrate (Fentanyl 2ml Vial) 25 mcg PRN Q2HR PRN IVP PAIN; Start 08/08/19 at 21:00; Stop 08/16/19 at 12:54; Status DC Enoxaparin Sodium (Lovenox 100mg Syringe) 100 mg Q12HR SQ ; Start 08/09/19 at 21:00; Status UNV Amino Acids/ Glycerin/ Electrolytes 1,000 ml @ 75 mls/hr [id number] IV ; Start 08/08/19 at 21:15; Status UNV Sodium Chloride 1,000 ml @ 1,000 mls/hr Q1H PRN IV hypotension; Start 08/09/19 at 07:56; Stop 08/09/19 at 13:55; Status DC Albumin Human 200 ml @ 200 mls/hr 1X PRN PRN IV Hypotension Last administered on 08/09/19at 08:40; Start 08/09/19 at 08:00; Stop 08/09/19 at 13:59; Status DC Sodium Chloride 1,000 ml @ 400 mls/hr Q2H30M PRN IV PATENCY; Start 08/09/19 at 07:56; Stop 08/09/19 at 19:55; Status DC Info (PHARMACY MONITORING -- do not chart) 1 each PRN DAILY PRN MC SEE COMMENTS; Start 08/09/19 at 08:00; Status UNV Info (PHARMACY MONITORING -- do not chart) 1 each PRN DAILY PRN MC SEE COMMENTS; Start 08/09/19 at 08:00; Status UNV Daptomycin 430 mg/ Sodium Chloride 50 ml @ 100 mls/hr Q24H IV Last a dministered on 08/09/19at 12:35; Start 08/09/19 at 09:00; Stop 08/09/19 at 12:49; Status DC Sodium Chloride 100 meq/Potassium Chloride 40 meq/ Magnesium Sulfate 20 meq/Calcium Gluconate 15 meq/ Multivitamins 10 ml/Chromium/ Copper/Manganese/ Seleni/Zn 0.5 ml/ Insulin Human Regular 35 unit/ Total Parenteral Nutrition/Amino Acids/Dextrose/ Fat Emulsion Intravenous 1,400 ml @ 58.333 mls/ hr TPN CONT IV Last administered on 08/09/19at 21:26; Start 08/09/19 at 22:00; Stop 08/10/19 at 21:59; Status DC Daptomycin 430 mg/ Sodium Chloride 50 ml @ 100 mls/hr Q48H IV ; Start 08/11/19 at 09:00; Stop 08/10/19 at 11:55; Status DC Sodium Chloride 100 meq/Potassium Chloride 40 meq/ Magnesium Sulfate 20 meq/Calcium Gluconate 15 meq/ Multivitamins 10 ml/Chromium/ Copper/Manganese/ Seleni/Zn 0.5 ml/ Insulin Human Regular 35 unit/ Total Parenteral Nutrition/Amino Acids/Dextrose/ Fat Emulsion Intravenous 1,400 ml @ 58.333 mls/ hr TPN CONT IV Last administered on 08/10/19at 22:27; Start 08/10/19 at 22:00; Stop 08/11/19 at 21:59; Status DC Daptomycin 430 mg/ Sodium Chloride 50 ml @ 100 mls/hr Q24H IV Last administered on 08/12/19at 15:07; Start 08/10/19 at 13:00; Stop 08/13/19 at 13:15; Status DC Sodium Chloride 100 meq/Potassium Chloride 40 meq/ Magnesium Sulfate 20 meq/C alcium Gluconate 10 meq/ Multivitamins 10 ml/Chromium/ Copper/Manganese/ Seleni/Zn 0.5 ml/ Insulin Human Regular 35 unit/ Total Parenteral Nutrition/Amino Acids/Dextrose/ Fat Emulsion Intravenous 1,400 ml @ 58.333 mls/ hr TPN CONT IV Last administered on 08/12/19at 00:06; Start 08/11/19 at 22:00; Stop 08/12/19 at 21:59; Status DC Alteplase, Recombinant (Cathflo For Central Catheter Clearance) 1 mg 1X ONCE INT CAT Last administered on 08/12/19at 11:44; Start 08/12/19 at 10:45; Stop 08/12/19 at 10:46; Status DC Ondansetron HCl (Zofran) 4 mg PRN Q6HRS PRN IV NAUSEA/VOMITING; Start 08/15/19 at 07:00; Stop 08/16/19 at 06:59; Status DC Fentanyl Citrate (Fentanyl 2ml Vial) 25 mcg PRN Q5MIN PRN IV MILD PAIN 1-3; Start 08/15/19 at 07:00; Stop 08/16/19 at 06:59; Status DC Fentanyl Citrate (Fentanyl 2ml Vial) 50 mcg PRN Q5MIN PRN IV MODERATE TO SEVERE PAIN Last administered on 08/15/19at 10:17; Start 08/15/19 at 07:00; Stop 08/16/19 at 06:59; Status DC Ringer's Solution 1,000 ml @ 30 mls/hr Q24H IV ; Start 08/15/19 at 07:00; Stop 08/15/19 at 18:59; Status DC Lidocaine HCl (Xylocaine-Mpf 1% 2ml Vial) 2 ml PRN 1X PRN ID PRIOR TO IV START; Start 08/15/19 at 07:00; Stop 08/16/19 at 06:59; Status DC Prochlorperazine Edisylate (Compazine) 5 mg PACU PRN PRN IV NAUSEA, MRX1; Start 08/15/19 at 07:00; Stop 08/16/19 at 06:59; Status DC Sodium Acetate 50 meq/Potassium Acetate 55 meq/ Magnesium Sulfate 20 meq/Calcium Gluconate 10 meq/ Multivitamins 10 ml/Chromium/ Copper/Manganese/ Seleni/Zn 0.5 ml/ Insulin Human Regular 35 unit/ Total Parenteral Nutrition/Amino Acids/Dextrose/ Fat Emulsion Intravenous 1,400 ml @ 58.333 mls/ hr TPN CONT IV ; Start 08/12/19 at 22:00; Stop 08/12/19 at 14:15; Status DC Sodium Acetate 50 meq/Potassium Acetate 55 meq/ Magnesium Sulfate 20 meq/Calcium Gluconate 10 meq/ Multivitamins 10 ml/Chromium/ Copper/Manganese/ Seleni/Zn 0.5 ml/ Insulin Human Regular 35 unit/ Total Parenteral Nutrition/Amino Acids/Dextrose/ Fat Emulsion Intravenous 1,800 ml @ 75 mls/hr TPN CONT IV Last administered on 08/12/19at 22:38; Start 08/12/19 at 22:00; Stop 08/13/19 at 21:59; Status DC Sodium Chloride 1,000 ml @ 1,000 mls/hr Q1H PRN IV hypotension; Start 08/12/19 at 15:31; Stop 08/12/19 at 21:30; Status DC Diphenhydramine HCl (Benadryl) 25 mg 1X PRN PRN IV ITCHING; Start 08/12/19 at 15:45; Stop 08/13/19 at 15:44; Status DC Diphenhydramine HCl (Benadryl) 25 mg 1X PRN PRN IV ITCHING; Start 08/12/19 at 15:45; Stop 08/13/19 at 15:44; Status DC Sodium Chloride 1,000 ml @ 400 mls/hr Q2H30M PRN IV PATENCY; Start 08/12/19 at 15:31; Stop 08/13/19 at 03:30; Status DC Info (PHARMACY MONITORING -- do not chart) 1 each PRN DAILY PRN MC SEE COMMENTS; Start 08/12/19 at 15:45 Sodium Acetate 50 meq/Potassium Acetate 55 meq/ Magnesium Sulfate 20 meq/Calcium Gluconate 10 meq/ Multivitamins 10 ml/Chromium/ Copper/Manganese/ Seleni/Zn 0.5 ml/ Insulin Human Regular 35 unit/ Total Parenteral Nutrition/Amino Acids/Dextrose/ Fat Emulsion Intravenous 1,800 ml @ 75 mls/hr TPN CONT IV Last administered on 08/13/19at 22:03; Start 08/13/19 at 22:00; Stop 08/14/19 at 21:59; Status DC Daptomycin 430 mg/ Sodium Chloride 50 ml @ 100 mls/hr Q24H IV Last admi nistered on 08/18/19at 13:00; Start 08/13/19 at 13:00; Stop 08/18/19 at 20:58; Status DC Heparin Sodium (Porcine) 1000 unit/Sodium Chloride 1,001 ml @ 1,001 mls/hr 1X ONCE IRR ; Start 08/15/19 at 06:00; Stop 08/15/19 at 06:59; Status DC Potassium Acetate 55 meq/Magnesium Sulfate 20 meq/ Calcium Gluconate 10 meq/ Multivitamins 10 ml/Chromium/ Copper/Manganese/ Seleni/Zn 0.5 ml/ Insulin Human Regular 35 unit/ Total Parenteral Nutrition/Amino Acids/Dextrose/ Fat Emulsion Intravenous 1,920 ml @ 80 mls/hr TPN CONT IV Last administered on 08/14/19at 22:10; Start 08/14/19 at 22:00; Stop 08/15/19 at 21:59; Status DC Dexamethasone Sodium Phosphate (Decadron) 4 mg STK-MED ONCE .ROUTE ; Start 08/15/19 at 10:56; Stop 08/15/19 at 10:57; Status DC Ondansetron HCl (Zofran) 4 mg STK-MED ONCE .ROUTE ; Start 08/15/19 at 10:56; Stop 08/15/19 at 10:57; Status DC Rocuronium [place] (Zemuron) 50 mg STK-MED ONCE .ROUTE ; Start 08/15/19 at 10:56; Stop 08/15/19 at 10:57; Status DC Fentanyl Citrate (Fentanyl 2ml Vial) 100 mcg STK-MED ONCE .ROUTE ; Start 08/15/19 at 10:56; Stop 08/15/19 at 10:57; Status DC Bupivacaine HCl/ Epinephrine Bitart (Sensorcain-Epi 0.5%-1:649269 Mpf) 30 ml STK-MED ONCE .ROUTE Last administered on 08/15/19at 12:01; Start 08/15/19 at 10:58; Stop 08/15/19 at 10:58; Status DC Cellulose (Surgicel Hemostat 2x14) 1 each STK-MED ONCE .ROUTE ; Start 08/15/19 at 10:58; Stop 08/15/19 at 10:59; Status DC Iohexol (Omnipaque 300 Mg/ml) 50 ml STK-MED ONCE .ROUTE ; Start 08/15/19 at 10:58; Stop 08/15/19 at 10:59; Status DC Cellulose (Surgicel Hemostat 4x8) 1 each STK-MED ONCE .ROUTE ; Start 08/15/19 at 10:58; Stop 08/15/19 at 10:59; Status DC Bisacodyl (Dulcolax Supp) 10 mg STK-MED ONCE .ROUTE ; Start 08/15/19 at 10:59; Stop 08/15/19 at 10:59; Status DC Heparin Sodium (Porcine) 1000 unit/Sodium Chloride 1,001 ml @ 1,001 mls/hr 1X ONCE IRR ; Start 08/15/19 at 12:00; Stop 08/15/19 at 12:59; Status DC Propofol 20 ml @ As Directed STK-MED ONCE IV ; Start 08/15/19 at 11:05; Stop 08/15/19 at 11:05; Status DC Sevoflurane (Ultane) 90 ml STK-MED ONCE IH ; Start 08/15/19 at 11:05; Stop 08/15/19 at 11:05; Status DC Sevoflurane (Ultane) 60 ml STK-MED ONCE IH ; Start 08/15/19 at 12:26; Stop 08/15/19 at 12:27; Status DC Propofol 20 ml @ As Directed STK-MED ONCE IV ; Start 08/15/19 at 12:26; Stop 08/15/19 at 12:27; Status DC Phenylephrine HCl (PHENYLEPHRINE in 0.9% NACL PF) 1 mg STK-MED ONCE IV ; Start 08/15/19 at 12:34; Stop 08/15/19 at 12:34; Status DC Heparin Sodium (Porcine) (Heparin Sodium) 5,000 unit Q12HR SQ Last administered on 08/24/19at 20:57; Start 08/15/19 at 21:00; Stop 08/25/19 at 09:59; Status DC Sodium Chloride (Normal Saline Flush) 3 ml QSHIFT PRN IV AFTER MEDS AND BLOOD DRAWS; Start 08/15/19 at 13:45 Naloxone HCl (Narcan) 0.4 mg PRN Q2MIN PRN IV SEE INSTRUCTIONS; Start 08/15/19 at 13:45 Sodium Chloride 1,000 ml @ 25 mls/hr Q24H IV Last administered on 08/25/19at 13:56; Start 08/15/19 at 13:37 Naloxone HCl (Narcan) 0.4 mg PRN Q2MIN PRN IV SEE INSTRUCTIONS; Start 08/15/19 at 14:30; Status UNV Sodium Chloride 1,000 ml @ 25 mls/hr Q24H IV ; Start 08/15/19 at 14:30; Status UNV Hydromorphone HCl 30 ml @ 0 mls/hr CONT PRN PRN IV PER PROTOCOL Last administered on 08/20/19at 16:08; Start 08/15/19 at 14:30; Stop 08/22/19 at 08:55; Status DC Potassium Acetate 55 meq/Magnesium Sulfate 20 meq/ Calcium Gluconate 10 meq/ Multivitamins 10 ml/Chromium/ Copper/Manganese/ Seleni/Zn 0.5 ml/ Insulin Human Regular 35 unit/ Total Parenteral Nutrition/Amino Acids/Dextrose/ Fat Emulsion Intravenous 1,920 ml @ 80 mls/hr TPN CONT IV Last administered on 08/15/19at 22:01; Start 08/15/19 at 22:00; Stop 08/16/19 at 21:59; Status DC Bumetanide (Bumex) 2 mg [id number] IV Last administered on 08/19/19at 13:50; Start 08/16/19 at 14:00; Stop 08/20/19 at 14:10; Status DC Meropenem 1 gm/ Sodium Chloride 100 ml @ 200 mls/hr Q8HRS IV Last administered on 08/25/19at 13:57; Start 08/16/19 at 14:00 Potassium Acetate 55 meq/Magnesium Sulfate 20 meq/ Calcium Gluconate 10 meq/ Multivitamins 10 ml/Chromium/ Copper/Manganese/ Seleni/Zn 0.5 ml/ Insulin Human Regular 35 unit/ Total Parenteral Nutrition/Amino Acids/Dextrose/ Fat Emulsion Intravenous 1,920 ml @ 80 mls/hr TPN CONT IV Last administered on 08/16/19at 22:02; Start 08/16/19 at 22:00; Stop 08/17/19 at 21:59; Status DC Hydromorphone HCl (Dilaudid Standard TRANSPORTATION BROKER) 12 mg STK-MED ONCE IV ; Start 08/15/19 at 14:35; Stop 08/16/19 at 13:53; Status DC Artificial Tears (Artificial Tears) 1 drop PRN Q15MIN PRN OU DRY EYE Last administered on 08/23/19at 09:10; Start 08/17/19 at 05:30 Hydromorphone HCl (Dilaudid Standard TRANSPORTATION BROKER) 12 mg STK-MED ONCE IV ; Start 08/16/19 at 12:05; Stop 08/17/19 at 09:15; Status DC Potassium Acetate 65 meq/Magnesium Sulfate 20 meq/ Calcium Gluconate 10 meq/ Multivitamins 10 ml/Chromium/ Copper/Manganese/ Seleni/Zn 0.5 ml/ Insulin Human Regular 30 unit/ Total Parenteral Nutrition/Amino Acids/Dextrose/ Fat Emulsion Intravenous 1,920 ml @ 80 mls/hr TPN CONT IV Last administered on 08/17/19at 22:22; Start 08/17/19 at 22:00; Stop 08/18/19 at 21:59; Status DC Cyclobenzaprine HCl (Flexeril) 10 mg PRN Q6HRS PRN PO MUSCLE SPASMS; Start 08/18/19 at 10:45 Potassium Acetate 55 meq/Magnesium Sulfate 20 meq/ Calcium Gluconate 10 meq/ Multivitamins 10 ml/Chromium/ Copper/Manganese/ Seleni/Zn 0.5 ml/ Insulin Human Regular 30 unit/ Total Parenteral Nutrition/Amino Acids/Dextrose/ Fat Emulsion Intravenous 1,920 ml @ 80 mls/hr TPN CONT IV Last administered on 08/19/19at 01:00; Start 08/18/19 at 22:00; Stop 08/19/19 at 21:59; Status DC Magnesium Sulfate 50 ml @ 25 mls/hr 1X ONCE IV Last administered on 08/18/19at 17:18; Start 08/18/19 at 12:45; Stop 08/18/19 at 14:44; Status DC Potassium Chloride/Water 100 ml @ 100 mls/hr 1X ONCE IV Last administered on 08/19/19at 11:27; Start 08/19/19 at 12:00; Stop 08/19/19 at 12:59; Status DC Hydromorphone HCl (Dilaudid Standard [employer]) 12 mg STK-MED ONCE IV ; Start 08/17/19 at 10:50; Stop 08/19/19 at 11:02; Status DC Hydromorphone HCl (Dilaudid Standard [employer]SP[employer]) 12 mg STK-MED ONCE IV ; Start 08/18/19 at 13:47; Stop 08/19/19 at 11:03; Status DC Potassium Acetate 30 meq/Magnesium Sulfate 20 meq/ Calcium Gluconate 10 meq/ Multivitamins 10 ml/Chromium/ Copper/Manganese/ Seleni/Zn 0.5 ml/ Insulin Human Regular 30 unit/ Potassium Chloride 30 meq/ Total Parenteral Nutrition/Amino Acids/Dextrose/ Fat Emulsion Intravenous 1,920 ml @ 80 mls/hr TPN CONT IV Last administered on 08/19/19at 22:34; Start 08/19/19 at 22:00; Stop 08/20/19 at 21:59; Status DC Potassium Chloride/Water 100 ml @ 100 mls/hr Q1H IV Last administered on 08/20/19at 13:05; Start 08/20/19 at 07:00; Stop 08/20/19 at 10:59; Status DC Magnesium Sulfate 50 ml @ 25 mls/hr 1X ONCE IV Last administered on 08/20/19at 10:34; Start 08/20/19 at 10:30; Stop 08/20/19 at 12:29; Status DC Potassium Chloride 75 meq/ Magnesium Sulfate 20 meq/Calcium Gluconate 10 meq/ Multivitamins 10 ml/Chromium/ Copper/Manganese/ Seleni/Zn 0.5 ml/ Insulin Human Regular 30 unit/ Total Parenteral Nutrition/Amino Acids/Dextrose/ Fat Emulsion Intravenous 1,920 ml @ 80 mls/hr TPN CONT IV Last administered on 08/20/19at 21:51; Start 08/20/19 at 22:00; Stop 08/21/19 at 22:00; Status DC Potassium Chloride 75 meq/ Magnesium Sulfate 20 meq/Calcium Gluconate 10 meq/ Multivitamins 10 ml/Chromium/ Copper/Manganese/ Seleni/Zn 0.5 ml/ Insulin Human Regular 25 unit/ Total Parenteral Nutrition/Amino Acids/Dextrose/ Fat Emulsion Intravenous 1,920 ml @ 80 mls/hr TPN CONT IV Last administered on 08/21/19at 22:04; Start 08/21/19 at 22:00; Stop 08/22/19 at 21:59; Status DC Hydromorphone HCl (Dilaudid) 0.4 mg PRN Q4HRS PRN IVP PAIN Last administered on 08/22/19at 10:57; Start 08/22/19 at 09:00; Stop 08/22/19 at 18:59; Status DC Micafungin Sodium 100 mg/Dextrose 100 ml @ 100 mls/hr Q24H IV Last administered on 08/25/19at 12:11; Start 08/22/19 at 11:00 Daptomycin 485 mg/ Sodium Chloride 50 ml @ 100 mls/hr Q24H IV Last administered on 08/25/19at 11:29; Start 08/22/19 at 11:00 Potassium Chloride 75 meq/ Magnesium Sulfate 15 meq/Calcium Gluconate 8 meq/ Multivitamins 10 ml/Chromium/ Copper/Manganese/ Seleni/Zn 0.5 ml/ Insulin Human Regular 25 unit/ Total Parenteral Nutrition/Amino Acids/Dextrose/ Fat Emulsion Intravenous 1,920 ml @ 80 mls/hr TPN CONT IV Last administered on 08/22/19at 23:08; Start 08/22/19 at 22:00; Stop 08/23/19 at 21:59; Status DC Haloperidol Lactate (Haldol Inj) 3 mg 1X ONCE IVP Last administered on 08/22/19at 14:37; Start 08/22/19 at 14:30; Stop 08/22/19 at 14:31; Status DC Hydromorphone HCl (Dilaudid) 1 mg PRN Q4HRS PRN IVP PAIN Last administered on 08/25/19at 08:39; Start 08/22/19 at 19:00 Potassium Chloride 75 meq/ Magnesium Sulfate 15 meq/Calcium Gluconate 8 meq/ Multivitamins 10 ml/Chromium/ Copper/Manganese/ Seleni/Zn 0.5 ml/ Insulin Human Regular 20 unit/ Total Parenteral Nutrition/Amino Acids/Dextrose/ Fat Emulsion Intravenous 1,920 ml @ 80 mls/hr TPN CONT IV Last administered on 08/23/19at 22:10; Start 08/23/19 at 22:00; Stop 08/24/19 at 21:59; Status DC Lidocaine HCl (Buffered Lidocaine 1%) 3 ml STK-MED ONCE .ROUTE ; Start 08/24/19 at 11:31; Stop 08/24/19 at 11:31; Status DC Lidocaine HCl (Buffered Lidocaine 1%) 3 ml STK-MED ONCE .ROUTE ; Start 08/24/19 at 12:28; Stop 08/24/19 at 12:29; Status DC Lidocaine HCl (Buffered Lidocaine 1%) 6 ml 1X ONCE INJ Last administered on 08/24/19at 12:53; Start 08/24/19 at 12:45; Stop 08/24/19 at 12:46; Status DC Potassium Chloride 75 meq/ Magnesium Sulfate 15 meq/Calcium Gluconate 8 meq/ Multivitamins 10 ml/Chromium/ Copper/Manganese/ Seleni/Zn 0.5 ml/ Insulin Human Regular 20 unit/ Total Parenteral Nutrition/Amino Acids/Dextrose/ Fat Emulsion Intravenous 1,920 ml @ 80 mls/hr TPN CONT IV Last administered on 08/24/19at 22:00; Start 08/24/19 at 22:00; Stop 08/25/19 at 21:59 Potassium Chloride 75 meq/ Magnesium Sulfate 15 meq/Calcium Gluconate 8 meq/ Multivitamins 10 ml/Chromium/ Copper/Manganese/ Seleni/Zn 0.5 ml/ Insulin Human Regular 15 unit/ Total Parenteral Nutrition/Amino Acids/Dextrose/ Fat Emulsion Intravenous 1,920 ml @ 80 mls/hr TPN CONT IV ; Start 08/25/19 at 22:00; Stop 08/26/19 at 21:59 Active Scripts Active Reported Bisoprolol Fumarate 5 Mg Tablet 10 Mg PO DAILY Vitals/I & O Vital Sign - Last 24 Hours 08/24/19 08/24/19 08/24/19 08/24/19 15:00 15:32 15:57 16:00 Temp 100.1 100.1 Pulse 92 94 Resp 29 26 B/P (MAP) 110/65 (80) 96/55 (69) Pulse Ox 99 100 99 O2 Delivery Ventilator Mechanical Ventilator Ventilator Ventilator 08/24/19 08/24/19 08/24/19 08/24/19 17:00 18:00 19:00 19:40 Temp 100.2 100.2 Pulse 92 96 90 Resp 33 34 32 32 B/P (MAP) 105/61 (76) 128/76 (93) 112/58 (76) Pulse Ox 97 98 97 96 O2 Delivery Ventilator Ventilator Tracheal Collar Tracheal Collar O2 Flow Rate 30.0 08/24/19 08/24/19 08/24/19 08/24/19 20:10 20:24 20:27 21:19 Pulse 92 Resp 32 34 B/P (MAP) 119/61 (80) Pulse Ox 98 97 100 O2 Delivery Mechanical Ventilator Tracheal Collar Ventilator O2 Flow Rate 30.0 08/24/19 08/24/19 08/24/19 08/24/19 21:25 21:29 22:43 23:08 Temp 98.9 98.9 Pulse 100 76 76 Resp 26 20 24 B/P (MAP) 121/67 (85) 87/52 (64) 84/48 (60) Pulse Ox 98 99 98 100 O2 Delivery Ventilator assist control assist control assist control vent 08/25/19 08/25/19 08/25/19 08/25/19 00:00 00:00 00:00 01:14 Pulse 99 81 Resp 24 24 B/P (MAP) 96/60 (72) 104/58 (73) Pulse Ox 100 98 97 O2 Delivery assist control vent Mechanical Ventilator Ventilator assist control vent O2 Flow Rate 30.0 08/25/19 08/25/19 08/25/19 08/25/19 02:12 02:25 02:55 03:00 Pulse 100 80 Resp 24 24 20 B/P (MAP) 179/95 (123) 101/56 (71) Pulse Ox 100 98 95 97 O2 Delivery assist control vent assist control vent assist control vent 08/25/19 08/25/19 08/25/19 08/25/19 04:00 04:00 04:51 05:00 Temp 98.6 98.6 Pulse 79 76 Resp 24 B/P (MAP) 95/60 (72) 95/56 (69) Pulse Ox 97 97 97 O2 Delivery Mechanical Ventilator assist control Ventilator ASSIST CONTROL VENT O2 Flow Rate 30.0 08/25/19 08/25/19 08/25/19 08/25/19 06:09 07:00 07:11 08:00 Temp 99.3 99.3 Pulse 77 82 90 Resp 20 32 18 B/P (MAP) 97/51 (66) 116/65 (82) 127/62 (83) Pulse Ox 97 97 98 96 O2 Delivery ASSIST CONTROL VENT Ventilator Ventilator Ventilator 08/25/19 08/25/19 08/25/19 08/25/19 08:00 08:39 09:00 09:36 Pulse 78 Resp 18 18 B/P (MAP) 101/58 (72) Pulse Ox 98 97 97 O2 Delivery Mechanical Ventilator Ventilator Ventilator Ventilator 08/25/19 08/25/19 08/25/19 08/25/19 09:41 09:50 10:00 11:00 Pulse 82 94 Resp 25 36 B/P (MAP) 117/73 (88) 150/81 (104) Pulse Ox 97 97 98 O2 Delivery Ventilator Ventilator Ventilator Tracheal Collar O2 Flow Rate 8.0 08/25/19 08/25/19 08/25/19 08/25/19 11:10 11:57 12:00 12:00 Temp 99.8 99.8 Pulse 102 Resp 32 B/P (MAP) 115/60 (78) Pulse Ox 98 97 97 O2 Delivery Ventilator Tracheal Collar Tracheal Collar Trach Collar O2 Flow Rate 8.0 8.0 8.0 08/25/19 08/25/19 13:00 14:00 Pulse 97 94 Resp 36 34 B/P (MAP) 132/72 (92) 134/72 (92) Pulse Ox 98 98 O2 Delivery Tracheal Collar Tracheal Collar O2 Flow Rate 8.0 8.0 Intake and Output 0 08/24/19 08/24/19 08/25/19 14:59 22:59 06:59 Intake Total 1000 ml 1284.05 ml 169 ml Output Total 880 ml 430 ml 825 ml Balance 120 ml 854.05 ml -656 ml Hemodynamically unstable?: No Is patient in severe pain?: Yes Is NPO status required?: Yes NIELS MCGILL MD August 25, 2019 14:56
--- NOTE | 2019-08-25 16:01 | NUR ---
SS following up with discharge planning. SS discussed with pt RNRenzo. Per pt RN. Pt sitting up in chair. Pt had NG tube placed today. Pt having drains placed tomorrow. ID still following. Pt still needing IV antibiotics. Pt on TPN and NPO. Pt's daughters completing disability packet with [facility]CF[facility] today. SS will continue to follow for discharge planning.
[2019-08-25] MEDS ORDERED: VECURONIUM BOLUS 10 MG VIAL. IV PRN (19:15)
[2019-08-25] MEDS ORDERED: BUMETANIDE 1 MG/4 ML VIAL. IV ONE (19:45)
[2019-08-25] MEDS ORDERED: DEXTROSE 70% IV SCH ×9 (22:00)
[2019-08-25] MEDS ORDERED: [UNRECOGNIZED DRUG - OTHER] IV SCH ×9 (22:00)
[2019-08-25] MEDS ORDERED: AMINO ACID IV SCH ×9 (22:00)
[2019-08-25] MEDS ORDERED: TOTAL PARENTERAL NUTRITION IV SCH ×9 (22:00)
[2019-08-26] VITALS (38 sets, daily range): BP systolic 87–172; BP diastolic 41–87
[2019-08-26] MEDS: DEXMEDETOMIDINE 400 MCG in IV NORMAL SALINE 100ML 96 ML IV PRN ×5 (00:19→22:01)
[2019-08-26] MEDS: HYDROmorphone 2 MG/ML VIAL IVP PRN ×3 (03:00→22:00)
[2019-08-26] MEDS: IV NORMAL SALINE 1000ML BAG 1,000 ML IV SCH (03:00)
[2019-08-26] MEDS: MEROPENEM 1 GM in IV NORMAL SALINE 100ML 100 ML IV SCH ×3 (05:46→22:25)
[2019-08-26] MEDS: INSULIN LISPRO 300 UNITS/3 ML VIAL. SQ SCH ×4 (05:47→18:00)
[2019-08-26 06:02] LABS: BASO % 0 % (0-3); EOS # 0.2 x10^3/uL (0.0-0.7); EOS % 2 % (0-3); HEMATOCRIT 24.3 % (36.0-47.0); HEMOGLOBIN 7.8 g/dL (12.0-15.5); LYMPH # 1.5 x10^3/uL (1.0-4.8); LYMPH % 15 % (24-48); MEAN CORPUSCULAR HEMOGLOBIN 29 pg (25-35); MEAN CORPUSCULAR HGB CONC 32 g/dL (31-37); MEAN CORPUSCULAR VOLUME 91 fL (79-100); MONO # 0.5 x10^3/uL (0.0-1.1); MONO % 5 % (0-9); NEUT # 8.1 x10^3/uL (1.8-7.7); NEUT % 78 % (31-73); PLATELET COUNT 408 x10^3/uL (140-400); RED BLOOD COUNT 2.69 x10^6/uL (3.50-5.40); RED CELL DISTRIBUTION WIDTH 17.5 % (11.5-14.5); WHITE BLOOD COUNT 10.4 x10^3/uL (4.0-11.0)
[2019-08-26 06:15] LABS: ALBUMIN 1.7 g/dL (3.4-5.0); ALBUMIN/GLOBULIN RATIO 0.4 (1.0-1.7); CALCIUM 8.9 mg/dL (8.5-10.1); CREATININE 0.8 mg/dL (0.6-1.0); GFR 76.2; TOTAL BILIRUBIN 0.5 mg/dL (0.2-1.0); TOTAL PROTEIN 5.8 g/dL (6.4-8.2)
[2019-08-26] MEDS ORDERED: LIDOCAINE WITH 8.4% SOD BICARB 3 ML DISP.SYRIN. ONE (07:59)
[2019-08-26] MEDS: PANTOPRAZOLE IV PUSH 40 MG VIAL. IVP SCH (08:25)
[2019-08-26] MEDS ORDERED: fentaNYL PF VIAL 250 MCG/5 ML VIAL ONE (08:36)
[2019-08-26] MEDS ORDERED: MIDAZOLAM HCL/PF 5 MG/5 ML VIAL. ONE (08:36)
--- NOTE | 2019-08-26 08:58 | PDOC ---
Infectious Disease Note Subjective Subjective NoVomiting but some nausea and some pain on trach with vent Discussed with REY PENNINGTON o/w neg Vital Sign Vital Signs Vital Signs Date Time Temp Pulse Resp B/P (MAP) Pulse Ox O2 Delivery O2 Flow Rate FiO2 08/26/19 08:00 Mechanical Ventilator 08/26/19 08:00 97.5 104 30 150/85 (106) 95 8.0 97.5 Physical Exam PHYSICAL EXAM GENERAL: Propped up in bed. Alert and coop. Looks a little tired HEENT: oral cavity dry, NGT NECK: Trach/vent LUNGS: rhonchi HEART: S1, S2, regular ABDOMEN: Distended, hypoactive BS, drain placement (08/14 - serous fluid) : Lind (08/01) EXTREMITIES: Generalized edema, no cyanosis, SCDs bilaterally DERMATOLOGIC: Warm and dry. No generalized rash. CENTRAL NERVOUS SYSTEM: weak, mouthing words to simple questions PICC line in place August 18, 2019 clean HDC has been removed LIJ removed Labs Lab Laboratory Tests Test 08/25/19 11:44 08/25/19 17:57 08/26/19 00:26 08/26/19 05:45 Glucose (Fingerstick) 150 mg/dL (70-99) 152 mg/dL (70-99) 134 mg/dL (70-99) White Blood Count 10.4 x10^3/uL (4.0-11.0) Red Blood Count 2.69 x10^6/uL (3.50-5.40) Hemoglobin 7.8 g/dL (12.0-15.5) Hematocrit 24.3 % (36.0-47.0) Mean Corpuscular Volume 91 fL (79-100) Mean Corpuscular Hemoglobin 29 pg (25-35) Mean Corpuscular Hemoglobin Concent 32 g/dL (31-37) Red Cell Distribution Width 17.5 % (11.5-14.5) Platelet Count 408 x10^3/uL (140-400) Neutrophils (%) (Auto) 78 % (31-73) Lymphocytes (%) (Auto) 15 % (24-48) Monocytes (%) (Auto) 5 % (0-9) Eosinophils (%) (Auto) 2 % (0-3) Basophils (%) (Auto) 0 % (0-3) Neutrophils # (Auto) 8.1 x10^3/uL (1.8-7.7) Lymphocytes # (Auto) 1.5 x10^3/uL (1.0-4.8) Monocytes # (Auto) 0.5 x10^3/uL (0.0-1.1) Eosinophils # (Auto) 0.2 x10^3/uL (0.0-0.7) Basophils # (Auto) 0.0 x10^3/uL (0.0-0.2) Sodium Level 149 mmol/L (136-145) Potassium Level 4.0 mmol/L (3.5-5.1) Chloride Level 112 mmol/L (98-107) Carbon Dioxide Level 31 mmol/L (21-32) Anion Gap 6 (6-14) Blood Urea Nitrogen 37 mg/dL (7-20) Creatinine 0.8 mg/dL (0.6-1.0) Estimated GFR (Cockcroft-Gault) 76.2 BUN/Creatinine Ratio 46 (6-20) Glucose Level 156 mg/dL (70-99) Calcium Level 8.9 mg/dL (8.5-10.1) Total Bilirubin 0.5 mg/dL (0.2-1.0) Aspartate Amino Transf (AST/SGOT) 42 U/L (15-37) Alanine Aminotransferase (ALT/SGPT) 39 U/L (14-59) Alkaline Phosphatase 91 U/L (46-116) Total Protein 5.8 g/dL (6.4-8.2) Albumin 1.7 g/dL (3.4-5.0) Albumin/Globulin Ratio 0.4 (1.0-1.7) Triglycerides Level 199 mg/dL (0-150) Test 08/26/19 05:46 Glucose (Fingerstick) 142 mg/dL (70-99) Micro U/S 08/21 IMPRESSION: Complex fluid collections within the right and lower quadrants. The abdominal visceral and vascular structures are not formally assessed on this exam. CT Scan 08/21 IMPRESSION: 1. Findings consistent with sequelae of severe acute pancreatitis with enlarging peripancreatic and intra-abdominal fluid collections as described 2. Interval placement of a drain in the ventral abdominal wall with and partial evacuation of the ventral extraperitoneal fluid collection previously evident. 08/14 Operative Note: After obtaining informed consent, patient was taken to OR, induced under GETA and prepped in the usual fashion. 5 mm port placed umbilical and right mid abdomen, all under laparoscopic guidance. Large amount of ascites encountered and aspirated off. Fluid was clear with some whitish debris. Viscera was completely locked in with obliteration of all planes, preventing any significant exploration. Copious irrigation. Given patient's overall clinical improvement, favor against open procedure and attempt at cholecystectomy and/or necrosectomy, given high risk of complications. Cholecystectomy will need to be performed, but favor waiting 3 months. 19 KAYLIN drain placed and secured with 3 0 nylon. Skin repaired with 4 0 monocryl. Dressing placed. Patient tolerated procedure well and sent to PACU in stable condition. All counts correct. Wound class is 4. CT Chest Abd/pelv 08/01 CT CHEST: CT scan the chest was done without contrast. There is a tracheostomy tube in good position. There are large bilateral pleural effusions. There is atelectasis in both lung bases. There is no mediastinal adenopathy. Right arm PICC line extends to the superior vena cava. There is a temporary dialysis catheter extending to the vena cava near the atrium. IMPRESSION: 1. Large bilateral effusions. 2. Atelectasis of both lungs. End impression CT abdomen pelvis CT scan the abdomen pelvis was done following CT chest with contrast. NG tube extends into the stomach. Spleen is normal. There is no mass or hydronephrosis in the kidneys. There is a gallstone the gallbladder. A focal liver lesion is not identified. There is diffuse necrosis of the pancreas. There is peripancreatic fluid. The pattern is similar to the recent study. There is fluid in the paracolic gutters. There is retroperitoneal fluid surrounding the kidneys. Ascites extends into the pelvis. Ascites is similar to the prior study. There is no bowel obstruction. There is no free air. IMPRESSION: 1. Diffuse pancreatic necrosis. 2. A extensive retroperitoneal fluid and inflammation. 3. Cholelithiasis. 4. Moderate to large volume ascites with little change. CT A/P, 07/27 IMPRESSION: 1. Increased ascites. 2. 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 Cholelithiasis with thickening of the gallbladder wall. 4. Persistent pleural effusions and atelectasis in the lung bases. Objective Assessment Fever - better currently - intermittent could be from underlying pancreatitis blood cults 08/21 - neg so far ? Ileus with vomiting Abd distention - U/S and CT reviewed s/p 0.4 L of opaque, debris-containing ascites was removed 08/23 Acute pancreatitis with persistent necrosis CT a/p 07/27 Increased ascites. Persistent evidence of necrotizing pancreatitis with fluid and phlegmon at the pancreas 08/14 status post KAYLIN drain placement - C paropsilosis on cult; Cult line tip - neg Anemia - S/p PRBCs Cholelithiasis with thickening of the gallbladder wall. Leucocytosis improving JUANA,Hyperkalemia, Metabolic acidosis off dialysis Acute hypoxic resp failure ,bilateral pleural effusion and atelectasis hypocalcemia Prediabetes HTN s/p trach Plan Plan of Care Appreciate IR for abd fluid drainage given fever and discomfort 08/23 To have more drains this am NGT to be placed with vomiting today Labs in am F/u cults from 08/23 abd Blood cult times 2 - 08/21 neg so far Added Micafungin 08/21 with yeast from 08/14 abd cult will have it worked up and sensitivity Dose Dapto 08/21 cont merrem (07/26) - try to wean soon but await cults 08/23 Electrolytes per primary Anemia per primary Maintain aspiration precaution PT and OT as tolerated Continue supportive care D/w nursing WILLY BARAKAT MD August 26, 2019 08:58
[2019-08-26] MEDS ORDERED: MIDAZOLAM HCL/PF 5 MG/5 ML VIAL. IV ONE (09:15)
[2019-08-26] MEDS ORDERED: LIDOCAINE WITH 8.4% SOD BICARB 3 ML DISP.SYRIN. IJ ONE (09:15)
[2019-08-26] MEDS ORDERED: fentaNYL PF VIAL 250 MCG/5 ML VIAL IV ONE (09:15)
[2019-08-26] MEDS: BUMETANIDE 1 MG/4 ML VIAL. IV SCH (10:00)
--- NOTE | 2019-08-26 10:17 | PDOC ---
MODERATE SEDATION ASSESSMENT RISKS/ALTERNATIVES Risks/Alternatives Risks and alternatives of this type of sedation and procedure discussed with: RISK/ALTERNATIVES: Patient H & P ON CHART H & P H & P on chart and reviewed for co-morbid conditions and appropriate labs. H&P ON CHART: Yes STATUS PREG STATUS ASSESSED: Yes MEDS/ALLERGIES REVIEWED Meds/Allergies Reviewed Medications and Allergies including time and route of recently administered narcotics and sedatives. MEDS/ALLERGIES REVIEWED: Yes ASA RATING ASA RATING: IV AIRWAY ASSESSMENT Airway Assessment Airway patency, oral function limitations, presence of caps, crowns, dentures, partials, and ability to extend neck assessed. AIRWAY ASSESSMENT: No MALLAMPATI SCORE MALLAMPATI SCORE: II PRE-SEDATION ASSESSMENT PRE-SEDATION ASSESSMENT: Yes NIKOLE HERNANDEZ MD August 26, 2019 10:17
--- NOTE | 2019-08-26 10:18 | PDOC ---
BRIEF OPERATIVE NOTE Pre-Op Diagnosis Pancreatitis with pseudocysts, suspected infection Post-Op Diagnosis same Procedure Performed CT abdominal Drains x 3 Surgeon Tesfaye Anesthesia Type: Conscious Sedation Findings 3 abdominal drains, 14F, with turbid pancreatic fluid and necrotic debris in each. Complications No immediate NIKOLE HERNANDEZ MD August 26, 2019 10:18
--- NOTE | 2019-08-26 10:48 | NUR ---
3 drains placed in Interventional Radiology, draining off much fluid (see intake and output) and awaiting drainage to slow down in order to make the drains manageable once she returns to CVICU. Patient tolerating well.
--- NOTE | 2019-08-26 11:17 | PDOC ---
Objective: Objective: Talked w/ nurse - out for drain placement, not much from NGT. Vital Signs: Vital Signs Date Time Temp Pulse Resp B/P (MAP) Pulse Ox O2 Delivery O2 Flow Rate FiO2 08/26/19 10:51 98 34 144/73 (96) 99 Tracheal Collar 08/26/19 10:17 15.0 08/26/19 08:00 97.5 97.5 Labs: Laboratory Tests Test 08/25/19 11:44 08/25/19 17:57 08/26/19 00:26 08/26/19 05:45 Glucose (Fingerstick) 150 mg/dL 152 mg/dL 134 mg/dL White Blood Count 10.4 x10^3/uL Red Blood Count 2.69 x10^6/uL Hemoglobin 7.8 g/dL Hematocrit 24.3 % Mean Corpuscular Volume 91 fL Mean Corpuscular Hemoglobin 29 pg Mean Corpuscular Hemoglobin Concent 32 g/dL Red Cell Distribution Width 17.5 % Platelet Count 408 x10^3/uL Neutrophils (%) (Auto) 78 % Lymphocytes (%) (Auto) 15 % Monocytes (%) (Auto) 5 % Eosinophils (%) (Auto) 2 % Basophils (%) (Auto) 0 % Neutrophils # (Auto) 8.1 x10^3/uL Lymphocytes # (Auto) 1.5 x10^3/uL Monocytes # (Auto) 0.5 x10^3/uL Eosinophils # (Auto) 0.2 x10^3/uL Basophils # (Auto) 0.0 x10^3/uL Sodium Level 149 mmol/L Potassium Level 4.0 mmol/L Chloride Level 112 mmol/L Carbon Dioxide Level 31 mmol/L Anion Gap 6 Blood Urea Nitrogen 37 mg/dL Creatinine 0.8 mg/dL Estimated GFR (Cockcroft-Gault) 76.2 BUN/Creatinine Ratio 46 Glucose Level 156 mg/dL Calcium Level 8.9 mg/dL Total Bilirubin 0.5 mg/dL Aspartate Amino Transf (AST/SGOT) 42 U/L Alanine Aminotransferase (ALT/SGPT) 39 U/L Alkaline Phosphatase 91 U/L Total Protein 5.8 g/dL Albumin 1.7 g/dL Albumin/Globulin Ratio 0.4 Triglycerides Level 199 mg/dL Test 08/26/19 05:46 Glucose (Fingerstick) 142 mg/dL BLOOD CULTURE Preliminary NO GROWTH AFTER 4 DAYS Imaging: KUB 08/24 IMPRESSION: Nasogastric tube within the stomach. IR procedure 08/25 pending PE: out of room A/P: Gallstone pancreatitis, MOSF -- Having drains placed, will follow. Hemodynamically unstable?: No Is patient in severe pain?: Yes Is NPO status required?: Yes CYNDEE FALCON August 26, 2019 11:17
[2019-08-26] MEDS: NORMAL SALINE IV SCH (11:29)
[2019-08-26] MEDS: DAPTOMYCIN IV SCH (11:29)
[2019-08-26] MEDS: TPN PER PHARMACY MC PRN (11:58)
--- NOTE | 2019-08-26 11:59 | NUR ---
Pharmacy TPN Dosing Note S: SCOTT AVILA is a 48 year old F Currently receiving Central Continuous TPN started 07/06/19 B:Pertinent PMH: Necrotizing pancreatitis Height: 5 feet, 8 inches Weight: 107.0 kg Current diet: NPO LABS: Sodium: 149 Potassium: 4 Chloride: 112 Calcium: 8.9 Corrected Calcium: 10.74 Magnesium: 2 CO2: 31 SCr: 0.8 Glucose: 156, 142 Albumin: 1.7 AST: 24 ALT: 39 TPN FORMULA: TPN TYPE: Central Continuous AMINO ACIDS: 90 gm DEXTROSE: 225 gm LIPIDS: 30 gm POTASSIUM CHLORIDE: 75 mEq MAGNESIUM: 15 mEq INSULIN: 15 units MULTIPLE VITAMIN: 10 ml TRACE ELEMENTS: 0.5 ml TPN PLAN: -Corrected calcium elevated - remove calcium from TPN. -Blood glucose within goal range after insulin reduction. -Triglycerides 199 today, continue with same lipid formula. -BMP tomorrow. R: Continue TPN @ current rate and with above formula. Will monitor electrolytes, glucose, and tolerance to TPN. SHARON CHRISTIANSON [facility], 08/26/19 [id number]
--- NOTE | 2019-08-26 12:28 | NUR ---
SS following up with discharge planning. SS discussed with RN, Renzo. Pt had drains placed today and has output. Pt has NG tube now. Pt on trach collar, TPN, and IV antibiotics. Pt NPO and not tolerating speaking valve. Pt is self pay pt. SS discussed with Mariely in HCFS. Pt's daughter, Norma, came to hospital on 08/25/2019 and worked on disability packet. Pt's daughter needing to provide some additional documentation prior to completing. SS will continue to follow for discharge planning.
[2019-08-26] MEDS: MICAFUNGIN 100 MG in IV DEXTROSE 5% 100ML 100 ML IV SCH (12:38)
--- NOTE | 2019-08-26 13:18 | PDOC ---
SUBJECTIVE ROS stable OBJECTIVE Vital Signs Vital Signs Date Time Temp Pulse Resp B/P (MAP) Pulse Ox O2 Delivery O2 Flow Rate FiO2 08/26/19 12:47 26 97 Ventilator 08/26/19 12:00 78 113/58 (76) 08/26/19 10:17 15.0 08/26/19 08:00 97.5 97.5 I & 0 Intake and Output 08/26/19 07:00 Intake Total 3985.1 ml Output Total 4075 ml Balance -89.9 ml IV Total 3285.1 ml Other 700 ml Output Urine Total 3875 ml Gastric Drainage Total 200 ml PHYSICAL EXAM Physical Exam GENERAL: NAD HEENT: oral cavity dry NECK: Trach/vent LUNGS: Non labored HEART: S1, S2, regular ABDOMEN: Distended, hypoactive BS, drain placement (08/14 ) : Lind EXTREMITIES: Generalized edema, DERMATOLOGIC: No generalized rash. DIAGNOSIS/ASSESSMENT Assessment & Plan ARF-- ATN,requiring CRRT and HD Off HD for past 2-3 weeks , renal function improved currently on TPN,, avoid nephrotoxins CT 08/21-? Developing right grade 2 hydronephrosis. 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 Moderate pleural effusions, may be slightly improved. Infiltrate/atelectasis in both lung bases. Ascites - post paracentesis in the past s/p paracentesis 08/23 Acute hypoxic resp failure ,bilateral pleural effusion Trach in place, HTN COVID-19 neg, 07/13 COMMENT/RELEVANT DATA Meds Current Medications Medications (Trade) Dose Ordered Sig/Yvon Start Time Stop Time Status Last Admin Dose Admin Acetaminophen (Tylenol Supp) 650 mg PRN Q6HRS PRN 07/12/19 10:30 08/23/19 09:12 650 MG Acetaminophen (Tylenol) 650 mg PRN Q6HRS PRN 07/09/19 03:36 08/04/19 19:56 650 MG Albumin Human 200 ml @ 200 mls/hr 1X PRN PRN 08/09/19 08:00 08/09/19 13:59 DC 08/09/19 08:40 200 MLS/HR Albuterol Sulfate (Ventolin Neb Soln) 2.5 mg 1X ONCE 07/05/19 22:30 07/05/19 22:31 DC 07/06/19 00:56 2.5 MG Alteplase, Recombinant (Cathflo For Central Catheter Clearance) 1 mg 1X ONCE 08/12/19 10:45 08/12/19 10:46 DC 08/12/19 11:44 1 MG Amino Acids/ Glycerin/ Electrolytes 1,000 ml @ 75 mls/hr [id number] 08/08/19 21:15 UNV Artificial Tears (Artificial Tears) 1 drop PRN Q15MIN PRN 08/17/19 05:30 08/23/19 09:10 1 DROP Atenolol (Tenormin) 100 mg DAILY 07/05/19 09:00 07/04/19 20:08 DC Atropine Sulfate (ATROPINE 0.5mg SYRINGE) 0.5 mg PRN Q5MIN PRN 07/21/19 08:15 Benzocaine (Hurricaine One) 1 spray 1X ONCE 07/08/19 14:30 07/08/19 14:31 DC 07/08/19 16:38 1 SPRAY Bisacodyl (Dulcolax Supp) 10 mg STK-MED ONCE 08/15/19 10:59 08/15/19 10:59 DC Bumetanide (Bumex) 2 mg DAILY 08/26/19 10:00 Bupivacaine HCl/ Epinephrine Bitart (Sensorcain-Epi 0.5%-1:[id number] Mpf) 30 ml STK-MED ONCE 08/15/19 10:58 08/15/19 10:58 DC 08/15/19 12:01 7 ML Calcium Carbonate/ Glycine (Tums) 500 mg PRN AFTMEALHC PRN 07/06/19 17:45 Calcium Chloride 1000 mg/Sodium Chloride 110 ml @ 220 mls/hr 1X ONCE 07/05/19 22:30 07/05/19 22:59 DC 07/05/19 22:11 220 MLS/HR Calcium Chloride 3000 mg/Sodium Chloride 1,030 ml @ 50 mls/hr [id number] 07/07/19 08:00 07/09/19 15:23 DC 07/09/19 02:17 50 MLS/HR Calcium Gluconate (Calcium Gluconate) 2,000 mg 1X ONCE 07/07/19 02:15 07/07/19 02:16 DC 07/07/19 02:19 2,000 MG Calcium Gluconate 1000 mg/Sodium Chloride 110 ml @ 220 mls/hr 1X ONCE 07/06/19 03:30 07/06/19 03:59 DC 07/06/19 03:21 220 MLS/HR Calcium Gluconate 2000 mg/Sodium Chloride 120 ml @ 220 mls/hr 1X ONCE 07/06/19 07:30 07/06/19 08:02 DC 07/06/19 09:05 220 MLS/HR Cefepime HCl (Maxipime) 2 gm Q12HR 07/13/19 09:00 07/27/19 09:58 DC 07/26/19 20:56 2 GM Cellulose (Surgicel Fibrillar 1x2) 1 each STK-MED ONCE 07/25/19 11:00 07/25/19 11:01 DC Cellulose (Surgicel Hemostat 2x14) 1 each STK-MED ONCE 08/15/19 10:58 08/15/19 10:59 DC Cellulose (Surgicel Hemostat 4x8) 1 each STK-MED ONCE 08/15/19 10:58 08/15/19 10:59 DC Cyclobenzaprine HCl (Flexeril) 10 mg PRN Q6HRS PRN 08/18/19 10:45 Daptomycin 430 mg/ Sodium Chloride 50 ml @ 100 mls/hr Q24H 08/13/19 13:00 08/18/19 20:58 DC 08/18/19 13:00 100 MLS/HR Daptomycin 485 mg/ Sodium Chloride 50 ml @ 100 mls/hr Q24H 08/22/19 11:00 08/26/19 11:29 100 MLS/HR Daptomycin 500 mg/ Sodium Chloride 50 ml @ 100 mls/hr Q48H 07/13/19 08:30 07/29/19 10:07 DC 07/29/19 09:57 100 MLS/HR Dexamethasone Sodium Phosphate (Decadron) 4 mg STK-MED ONCE 08/15/19 10:56 08/15/19 10:57 DC Dexmedetomidine HCl 400 mcg/ Sodium Chloride 100 ml @ 0 mls/hr CONT PRN 07/21/19 08:15 08/26/19 11:32 16.7 MLS/HR Dextrose (Dextrose 50%-Water Syringe) 12.5 gm PRN Q15MIN PRN 07/04/19 09:30 Digoxin (Lanoxin) 125 mcg 1X ONCE 07/07/19 18:00 07/07/19 18:01 DC 07/07/19 17:10 125 MCG Diphenhydramine HCl (Benadryl) 25 mg 1X PRN PRN 08/12/19 15:45 08/13/19 15:44 DC Enoxaparin Sodium (Lovenox 100mg Syringe) 100 mg Q12HR 08/09/19 21:00 UNV Etomidate (Amidate) 8 mg 1X ONCE 07/11/19 08:30 07/11/19 08:31 DC 07/11/19 08:33 8 MG Fentanyl Citrate (Fentanyl 2ml Vial) 100 mcg STK-MED ONCE 08/15/19 10:56 08/15/19 10:57 DC Fentanyl Citrate (Fentanyl 5ml Vial) 250 mcg 1X ONCE 08/26/19 09:15 08/26/19 09:16 DC 08/26/19 09:30 50 MCG Furosemide (Lasix) 40 mg 1X ONCE 08/01/19 14:30 08/01/19 14:31 DC 08/01/19 14:39 40 MG Haloperidol Lactate (Haldol Inj) 3 mg 1X ONCE 08/22/19 14:30 08/22/19 14:31 DC 08/22/19 14:37 3 MG Heparin Sodium (Porcine) (Hep Lock Adult) 500 unit STK-MED ONCE 07/26/19 09:29 07/26/19 09:30 DC Heparin Sodium (Porcine) (Heparin Sodium) 5,000 unit Q12HR 08/15/19 21:00 08/25/19 09:59 DC 08/24/19 20:57 5,000 UNIT Heparin Sodium (Porcine) 1000 unit/Sodium Chloride 1,001 ml @ 1,001 mls/hr 1X ONCE 08/15/19 12:00 08/15/19 12:59 DC Hydromorphone HCl (Dilaudid Standard [employer]) 12 mg STK-MED ONCE 08/18/19 13:47 08/19/19 11:03 DC Hydromorphone HCl (Dilaudid) 1 mg PRN Q4HRS PRN 08/22/19 19:00 08/26/19 03:00 1 MG Info (CONTRAST GIVEN -- Rx MONITORING) 1 each PRN DAILY PRN 07/18/19 11:45 07/20/19 11:44 DC Info (Icu Electrolyte Protocol) 1 ea CONT PRN PRN 07/17/19 13:15 Info (PHARMACY MONITORING -- do not chart) 1 each PRN DAILY PRN 08/12/19 15:45 Info (Tpn Per Pharmacy) 1 each PRN DAILY PRN 07/06/19 12:30 UNV Insulin Human Lispro (HumaLOG) 0-9 UNITS Q6HRS 07/04/19 09:30 08/26/19 12:44 4 UNITS Insulin Human Regular (HumuLIN R VIAL) 5 unit 1X ONCE 07/05/19 22:30 07/05/19 22:31 DC 07/05/19 22:14 5 UNIT Iohexol (Omnipaque 240 Mg/ml) 30 ml 1X ONCE 07/18/19 11:30 07/18/19 11:33 DC 07/18/19 11:30 30 ML Iohexol (Omnipaque 300 Mg/ml) 50 ml STK-MED ONCE 08/15/19 10:58 08/15/19 10:59 DC Iohexol (Omnipaque 350 Mg/ml) 90 ml 1X ONCE 07/04/19 03:30 07/04/19 03:31 DC 07/04/19 03:25 90 ML Ketorolac Tromethamine (Toradol 30mg Vial) 30 mg 1X ONCE 07/04/19 03:00 07/04/19 03:01 DC 07/04/19 02:54 30 MG Lidocaine HCl (Buffered Lidocaine 1%) 3 ml 1X ONCE 08/26/19 09:15 08/26/19 09:16 DC 08/26/19 09:30 16 ML Lidocaine HCl (Glydo (Lidocaine) Jelly) 1 ramu 1X ONCE 07/08/19 14:30 07/08/19 14:31 DC 07/08/19 16:38 1 RAMU Lidocaine HCl (Xylocaine-Mpf 1% 2ml Vial) 2 ml PRN 1X PRN 08/15/19 07:00 08/16/19 06:59 DC Linezolid/Dextrose 300 ml @ 300 mls/hr Q12HR 07/29/19 11:00 08/09/19 08:10 DC 08/08/19 20:40 300 MLS/HR Lorazepam (Ativan Inj) 1 mg PRN Q4HRS PRN 07/07/19 09:00 08/05/19 09:19 DC 08/05/19 03:51 1 MG Magnesium Sulfate 50 ml @ 25 mls/hr 1X ONCE 08/20/19 10:30 08/20/19 12:29 DC 08/20/19 10:34 25 MLS/HR Meropenem 1 gm/ Sodium Chloride 100 ml @ 200 mls/hr Q8HRS 08/16/19 14:00 08/26/19 05:46 200 MLS/HR Meropenem 500 mg/ Sodium Chloride 50 ml @ 100 mls/hr Q12H 07/27/19 10:00 08/16/19 12:37 DC 08/16/19 10:45 100 MLS/HR Metoprolol Tartrate (Lopressor Vial) 5 mg Q6HRS 07/05/19 10:15 07/16/19 08:48 DC 07/14/19 00:12 5 MG Metronidazole 100 ml @ 100 mls/hr Q8HRS 08/02/19 10:00 08/09/19 08:10 DC 08/09/19 06:04 100 MLS/HR Micafungin Sodium 100 mg/Dextrose 100 ml @ 100 mls/hr Q24H 08/22/19 11:00 08/26/19 12:38 100 MLS/HR Midazolam HCl (Versed) 5 mg 1X ONCE 08/26/19 09:15 08/26/19 09:16 DC 08/26/19 09:30 1 MG Midazolam HCl 100 mg/Sodium Chloride 100 ml @ 7 mls/hr CONT PRN 07/16/19 16:00 07/27/19 15:35 7 MLS/HR Midazolam HCl 50 mg/Sodium Chloride 50 ml @ 0 mls/hr CONT PRN 07/11/19 08:15 07/16/19 15:59 DC 07/14/19 22:39 7 MLS/HR Morphine Sulfate (Morphine Sulfate) 2 mg PRN Q2HR PRN 07/04/19 05:00 07/05/19 14:15 DC 07/05/19 12:26 2 MG Multi-Ingred Cream/Lotion/Oil/ Oint (Artificial Tears Eye Ointment) 1 ramu PRN Q1HR PRN 07/13/19 17:30 08/01/19 08:19 1 RAMU Naloxone HCl (Narcan) 0.4 mg PRN Q2MIN PRN 08/15/19 14:30 UNV Norepinephrine Bitartrate 8 mg/ Dextrose 258 ml @ 17.299 mls/ hr CONT PRN 07/05/19 15:30 08/05/19 09:19 DC 08/02/19 12:48 20.9 MLS/HR Ondansetron HCl (Zofran) 4 mg STK-MED ONCE 08/15/19 10:56 08/15/19 10:57 DC Pantoprazole Sodium (PROTONIX VIAL for IV PUSH) 40 mg DAILYAC 07/04/19 11:30 08/26/19 08:25 40 MG Phenylephrine HCl (PHENYLEPHRINE in 0.9% NACL PF) 1 mg STK-MED ONCE 08/15/19 12:34 08/15/19 12:34 DC Piperacillin Sod/ Tazobactam Sod 4.5 gm/Sodium Chloride 100 ml @ 200 mls/hr 1X ONCE 07/04/19 06:00 07/04/19 06:29 DC 07/04/19 05:44 200 MLS/HR Potassium Chloride 15 meq/ Bicarbonate Dialysis Soln w/ out KCl 5,007.5 ml @ 1,000 mls/ hr Q5H1M 07/17/19 20:00 07/21/19 13:08 DC 07/20/19 18:14 1,000 MLS/HR Potassium Chloride 20 meq/ Bicarbonate Dialysis Soln w/ out KCl 5,010 ml @ 1,000 mls/hr Q5H1M 07/13/19 16:00 07/17/19 19:59 DC 07/17/19 14:54 1,000 MLS/HR Potassium Chloride 75 meq/ Magnesium Sulfate 15 meq/ Multivitamins 10 ml/Chromium/ Copper/Manganese/ Seleni/Zn 0.5 ml/ Insulin Human Regular 15 unit/ Total Parenteral Nutrition/Amino Acids/Dextrose/ Fat Emulsion Intravenous 1,920 ml @ 80 mls/hr TPN CONT 5/8/20 22:00 08/27/19 21:59 Potassium Chloride 75 meq/ Magnesium Sulfate 15 meq/Calcium Gluconate 8 meq/ Multivitamins 10 ml/Chromium/ Copper/Manganese/ Seleni/Zn 0.5 ml/ Insulin Human Regular 15 unit/ Total Parenteral Nutrition/Amino Acids/Dextrose/ Fat Emulsion Intravenous 1,920 ml @ 80 mls/hr TPN CONT 08/25/19 22:00 08/26/19 21:59 08/25/19 22:28 80 MLS/HR Potassium Chloride 75 meq/ Magnesium Sulfate 15 meq/Calcium Gluconate 8 meq/ Multivitamins 10 ml/Chromium/ Copper/Manganese/ Seleni/Zn 0.5 ml/ Insulin Human Regular 20 unit/ Total Parenteral Nutrition/Amino Acids/Dextrose/ Fat Emulsion Intravenous 1,920 ml @ 80 mls/hr TPN CONT 08/24/19 22:00 08/25/19 21:59 DC 08/24/19 22:00 80 MLS/HR Potassium Chloride 75 meq/ Magnesium Sulfate 15 meq/Calcium Gluconate 8 meq/ Multivitamins 10 ml/Chromium/ Copper/Manganese/ Seleni/Zn 0.5 ml/ Insulin Human Regular 25 unit/ Total Parenteral Nutrition/Amino Acids/Dextrose/ Fat Emulsion Intravenous 1,920 ml @ 80 mls/hr TPN CONT 08/22/19 22:00 08/23/19 21:59 DC 08/22/19 23:08 80 MLS/HR Potassium Chloride 75 meq/ Magnesium Sulfate 20 meq/Calcium Gluconate 10 meq/ Multivitamins 10 ml/Chromium/ Copper/Manganese/ Seleni/Zn 0.5 ml/ Insulin Human Regular 25 unit/ Total Parenteral Nutrition/Amino Acids/Dextrose/ Fat Emulsion Intravenous 1,920 ml @ 80 mls/hr TPN CONT 08/21/19 22:00 08/22/19 21:59 DC 08/21/19 22:04 80 MLS/HR Potassium Chloride 75 meq/ Magnesium Sulfate 20 meq/Calcium Gluconate 10 meq/ Multivitamins 10 ml/Chromium/ Copper/Manganese/ Seleni/Zn 0.5 ml/ Insulin Human Regular 30 unit/ Total Parenteral Nutrition/Amino Acids/Dextrose/ Fat Emulsion Intravenous 1,920 ml @ 80 mls/hr TPN CONT 08/20/19 22:00 08/21/19 22:00 DC 08/20/19 21:51 80 MLS/HR Potassium Chloride/Water 100 ml @ 100 mls/hr Q1H 08/20/19 07:00 08/20/19 10:59 DC 08/20/19 13:05 100 MLS/HR Potassium Phosphate 20 mmol/ Sodium Chloride 106.6667 ml @ 51.667 m... 1X ONCE 07/13/19 13:00 07/13/19 15:03 DC 07/13/19 12:51 51.667 MLS/HR Potassium Acetate 30 meq/Magnesium Sulfate 20 meq/ Calcium Gluconate 10 meq/ Multivitamins 10 ml/Chromium/ Copper/Manganese/ Seleni/Zn 0.5 ml/ Insulin Human Regular 30 unit/ Potassium Chloride 30 meq/ Total Parenteral Nutrition/Amino Acids/Dextrose/ Fat Emulsion Intravenous 1,920 ml @ 80 mls/hr TPN CONT 08/19/19 22:00 08/20/19 21:59 DC 08/19/19 22:34 80 MLS/HR Potassium Acetate 55 meq/Magnesium Sulfate 20 meq/ Calcium Gluconate 10 meq/ Multivitamins 10 ml/Chromium/ Copper/Manganese/ Seleni/Zn 0.5 ml/ Insulin Human Regular 30 unit/ Total Parenteral Nutrition/Amino Acids/Dextrose/ Fat Emulsion Intravenous 1,920 ml @ 80 mls/hr TPN CONT 08/18/19 22:00 08/19/19 21:59 DC 08/19/19 01:00 80 MLS/HR Potassium Acetate 55 meq/Magnesium Sulfate 20 meq/ Calcium Gluconate 10 meq/ Multivitamins 10 ml/Chromium/ Copper/Manganese/ Seleni/Zn 0.5 ml/ Insulin Human Regular 35 unit/ Total Parenteral Nutrition/Amino Acids/Dextrose/ Fat Emulsion Intravenous 1,920 ml @ 80 mls/hr TPN CONT 08/16/19 22:00 08/17/19 21:59 DC 08/16/19 22:02 80 MLS/HR Potassium Acetate 65 meq/Magnesium Sulfate 20 meq/ Calcium Gluconate 10 meq/ Multivitamins 10 ml/Chromium/ Copper/Manganese/ Seleni/Zn 0.5 ml/ Insulin Human Regular 30 unit/ Total Parenteral Nutrition/Amino Acids/Dextrose/ Fat Emulsion Intravenous 1,920 ml @ 80 mls/hr TPN CONT 08/17/19 22:00 08/18/19 21:59 DC 08/17/19 22:22 80 MLS/HR Prochlorperazine Edisylate (Compazine) 5 mg PACU PRN PRN 08/15/19 07:00 08/16/19 06:59 DC Propofol 20 ml @ As Directed STK-MED ONCE 08/15/19 12:26 08/15/19 12:27 DC Ringer's Solution 1,000 ml @ 30 mls/hr Q24H 08/15/19 07:00 08/15/19 18:59 DC Rocuronium [place] (Zemuron) 50 mg STK-MED ONCE 08/15/19 10:56 08/15/19 10:57 DC Sevoflurane (Ultane) 60 ml STK-MED ONCE 08/15/19 12:26 08/15/19 12:27 DC Sodium Bicarbonate 50 meq/Sodium Chloride 1,050 ml @ 75 mls/hr Q14H 07/06/19 07:30 07/11/19 10:28 DC 07/10/19 21:10 75 MLS/HR Sodium Acetate 50 meq/Potassium Acetate 55 meq/ Magnesium Sulfate 20 meq/Calcium Gluconate 10 meq/ Multivitamins 10 ml/Chromium/ Copper/Manganese/ Seleni/Zn 0.5 ml/ Insulin Human Regular 35 unit/ Total Parenteral Nutrition/Amino Acids/Dextrose/ Fat Emulsion Intravenous 1,800 ml @ 75 mls/hr TPN CONT 08/13/19 22:00 08/14/19 21:59 DC 08/13/19 22:03 75 MLS/HR Sodium Chloride 1,000 ml @ 25 mls/hr Q24H 08/15/19 14:30 UNV Sodium Chloride (Normal Saline Flush) 3 ml QSHIFT PRN 08/15/19 13:45 Sodium Chloride 90 meq/Calcium Gluconate 10 meq/ Multivitamins 10 ml/Chromium/ Copper/Manganese/ Seleni/Zn 0.5 ml/ Total Parenteral Nutrition/Amino Acids/Dextrose/ Fat Emulsion Intravenous 1,512 ml @ 63 mls/hr TPN CONT 07/06/19 22:00 07/07/19 21:59 DC 07/06/19 22:06 63 MLS/HR Sodium Chloride 90 meq/Calcium Gluconate 10 meq/ Multivitamins 10 ml/Chromium/ Copper/Manganese/ Seleni/Zn 1 ml/ Total Parenteral Nutrition/Amino Acids/Dextrose/ Fat Emulsion Intravenous 55.005 ml @ 2.292 mls/hr TPN CONT 07/06/19 22:00 07/06/19 12:33 DC Sodium Chloride 90 meq/Magnesium Sulfate 10 meq/ Calcium Gluconate 20 meq/ Multivitamins 10 ml/Chromium/ Copper/Manganese/ Seleni/Zn 0.5 ml/ Total Parenteral Nutrition/Amino Acids/Dextrose/ Fat Emulsion Intravenous 1,512 ml @ 63 mls/hr TPN CONT 07/07/19 22:00 07/08/19 21:59 DC 07/07/19 22:25 63 MLS/HR Sodium Chloride 90 meq/Magnesium Sulfate 12 meq/ Calcium Gluconate 15 meq/ Multivitamins 10 ml/Chromium/ Copper/Manganese/ Seleni/Zn 0.5 ml/ Insulin Human Regular 25 unit/ Total Parenteral Nutrition/Amino Acids/Dextrose/ Fat Emulsion Intravenous 1,400 ml @ 58.333 mls/ hr TPN CONT 07/27/19 22:00 07/28/19 21:59 DC 07/27/19 21:41 58.333 MLS/HR Sodium Chloride 90 meq/Potassium Chloride 15 meq/ Magnesium Sulfate 12 meq/Calcium Gluconate 15 meq/ Multivitamins 10 ml/Chromium/ Copper/Manganese/ Seleni/Zn 0.5 ml/ Insulin Human Regular 25 unit/ Total Parenteral Nutrition/Amino Acids/Dextrose/ Fat Emulsion Intravenous 1,400 ml @ 58.333 mls/ hr TPN CONT 07/26/19 22:00 07/27/19 21:59 DC 07/26/19 22:13 58.333 MLS/HR Sodium Chloride 90 meq/Potassium Chloride 15 meq/ Potassium Phosphate 10 mmol/ Magnesium Sulfate 8 meq/Calcium Gluconate 15 meq/ Multivitamins 10 ml/Chromium/ Copper/Manganese/ Seleni/Zn 0.5 ml/ Insulin Human Regular 25 unit/ Total Parenteral Nutrition/Amino Acids/Dextrose/ Fat Emulsion Intravenous 1,400 ml @ 58.333 mls/ hr TPN CONT 07/24/19 22:00 07/25/19 21:59 DC 07/24/19 21:20 58.333 MLS/HR Sodium Chloride 90 meq/Potassium Chloride 15 meq/ Potassium Phosphate 10 mmol/ Magnesium Sulfate 10 meq/Calcium Gluconate 20 meq/ Multivitamins 10 ml/Chromium/ Copper/Manganese/ Seleni/Zn 0.5 ml/ Total Parenteral Nutrition/Amino Acids/Dextrose/ Fat Emulsion Intravenous 1,400 ml @ 58.333 mls/ hr TPN CONT 07/11/19 22:00 07/12/19 21:59 DC 07/11/19 21:42 58.333 MLS/HR Sodium Chloride 90 meq/Potassium Chloride 15 meq/ Potassium Phosphate 10 mmol/ Magnesium Sulfate 12 meq/Calcium Gluconate 15 meq/ Multivitamins 10 ml/Chromium/ Copper/Manganese/ Seleni/Zn 0.5 ml/ Insulin Human Regular 25 unit/ Total Parenteral Nutrition/Amino Acids/Dextrose/ Fat Emulsion Intravenous 1,400 ml @ 58.333 mls/ hr TPN CONT 07/25/19 22:00 07/26/19 21:59 DC 07/25/19 22:24 58.333 MLS/HR Sodium Chloride 90 meq/Potassium Chloride 15 meq/ Potassium Phosphate 15 mmol/ Magnesium Sulfate 10 meq/Calcium Gluconate 15 meq/ Multivitamins 10 ml/Chromium/ Copper/Manganese/ Seleni/Zn 0.5 ml/ Total Parenteral Nutrition/Amino Acids/Dextrose/ Fat Emulsion Intravenous 1,400 ml @ 58.333 mls/ hr TPN CONT 07/12/19 22:00 07/13/19 21:59 DC 07/12/19 22:17 58.333 MLS/HR Sodium Chloride 90 meq/Potassium Chloride 15 meq/ Potassium Phosphate 15 mmol/ Magnesium Sulfate 10 meq/Calcium Gluconate 20 meq/ Multivitamins 10 ml/Chromium/ Copper/Manganese/ Seleni/Zn 0.5 ml/ Total Parenteral Nutrition/Amino Acids/Dextrose/ Fat Emulsion Intravenous 1,200 ml @ 50 mls/hr TPN CONT 07/10/19 22:00 07/10/19 14:17 DC Sodium Chloride 90 meq/Potassium Chloride 15 meq/ Potassium Phosphate 18 mmol/ Magnesium Sulfate 8 meq/Calcium Gluconate 15 meq/ Multivitamins 10 ml/Chromium/ Copper/Manganese/ Seleni/Zn 0.5 ml/ Insulin Human Regular 10 unit/ Total Parenteral Nutrition/Amino Acids/Dextrose/ Fat Emulsion Intravenous 1,400 ml @ 58.333 mls/ hr TPN CONT 07/15/19 22:00 07/16/19 21:59 DC 07/15/19 21:43 58.333 MLS/HR Sodium Chloride 90 meq/Potassium Chloride 15 meq/ Potassium Phosphate 18 mmol/ Magnesium Sulfate 8 meq/Calcium Gluconate 15 meq/ Multivitamins 10 ml/Chromium/ Copper/Manganese/ Seleni/Zn 0.5 ml/ Insulin Human Regular 15 unit/ Total Parenteral Nutrition/Amino Acids/Dextrose/ Fat Emulsion Intravenous 1,400 ml @ 58.333 mls/ hr TPN CONT 07/18/19 22:00 07/19/19 21:59 DC 07/18/19 21:47 58.333 MLS/HR Sodium Chloride 90 meq/Potassium Chloride 15 meq/ Potassium Phosphate 18 mmol/ Magnesium Sulfate 8 meq/Calcium Gluconate 15 meq/ Multivitamins 10 ml/Chromium/ Copper/Manganese/ Seleni/Zn 0.5 ml/ Insulin Human Regular 20 unit/ Total Parenteral Nutrition/Amino Acids/Dextrose/ Fat Emulsion Intravenous 1,400 ml @ 58.333 mls/ hr TPN CONT 07/21/19 22:00 07/22/19 21:59 DC 07/21/19 22:45 58.333 MLS/HR Sodium Chloride 90 meq/Potassium Chloride 15 meq/ Potassium Phosphate 18 mmol/ Magnesium Sulfate 8 meq/Calcium Gluconate 15 meq/ Multivitamins 10 ml/Chromium/ Copper/Manganese/ Seleni/Zn 0.5 ml/ Total Parenteral Nutrition/Amino Acids/Dextrose/ Fat Emulsion Intravenous 1,400 ml @ 58.333 mls/ hr TPN CONT 07/14/19 22:00 07/15/19 21:59 DC 07/14/19 22:00 58.333 MLS/HR Sodium Chloride 90 meq/Potassium Phosphate 15 mmol/ Magnesium Sulfate 12 meq/Calcium Gluconate 15 meq/ Multivitamins 10 ml/Chromium/ Copper/Manganese/ Seleni/Zn 0.5 ml/ Insulin Human Regular 30 unit/ Total Parenteral Nutrition/Amino Acids/Dextrose/ Fat Emulsion Intravenous 1,400 ml @ 58.333 mls/ hr TPN CONT 07/29/19 22:00 07/30/19 21:59 DC 07/29/19 21:49 58.333 MLS/HR Sodium Chloride 90 meq/Potassium Phosphate 15 mmol/ Magnesium Sulfate 12 meq/Calcium Gluconate 15 meq/ Multivitamins 10 ml/Chromium/ Copper/Manganese/ Seleni/Zn 0.5 ml/ Insulin Human Regular 40 unit/ Total Parenteral Nutrition/Amino Acids/Dextrose/ Fat Emulsion Intravenous 1,400 ml @ 58.333 mls/ hr TPN CONT 07/30/19 22:00 07/31/19 21:59 DC 07/30/19 21:21 58.333 MLS/HR Sodium Chloride 90 meq/Potassium Phosphate 19 mmol/ Magnesium Sulfate 12 meq/Calcium Gluconate 15 meq/ Multivitamins 10 ml/Chromium/ Copper/Manganese/ Seleni/Zn 0.5 ml/ Insulin Human Regular 40 unit/ Total Parenteral Nutrition/Amino Acids/Dextrose/ Fat Emulsion Intravenous 1,400 ml @ 58.333 mls/ hr TPN CONT 07/31/19 22:00 08/01/19 21:59 DC 07/31/19 21:54 58.333 MLS/HR Sodium Chloride 90 meq/Potassium Phosphate 5 mmol/ Magnesium Sulfate 12 meq/Calcium Gluconate 15 meq/ Multivitamins 10 ml/Chromium/ Copper/Manganese/ Seleni/Zn 0.5 ml/ Insulin Human Regular 30 unit/ Total Parenteral Nutrition/Amino Acids/Dextrose/ Fat Emulsion Intravenous 1,400 ml @ 58.333 mls/ hr TPN CONT 07/28/19 22:00 07/29/19 21:59 DC 07/28/19 22:08 58.333 MLS/HR Sodium Chloride 100 meq/Potassium Chloride 40 meq/ Magnesium Sulfate 15 meq/Calcium Gluconate 15 meq/ Multivitamins 10 ml/Chromium/ Copper/Manganese/ Seleni/Zn 0.5 ml/ Insulin Human Regular 35 unit/ Total Parenteral Nutrition/Amino Acids/Dextrose/ Fat Emulsion Intravenous 1,400 ml @ 58.333 mls/ hr TPN CONT 08/07/19 22:00 08/08/19 21:59 DC 08/07/19 22:46 58.333 MLS/HR Sodium Chloride 100 meq/Potassium Chloride 40 meq/ Magnesium Sulfate 20 meq/Calcium Gluconate 10 meq/ Multivitamins 10 ml/Chromium/ Copper/Manganese/ Seleni/Zn 0.5 ml/ Insulin Human Regular 35 unit/ Total Parenteral Nutrition/Amino Acids/Dextrose/ Fat Emulsion Intravenous 1,400 ml @ 58.333 mls/ hr TPN CONT 08/11/19 22:00 08/12/19 21:59 DC 08/12/19 00:06 58.333 MLS/HR Sodium Chloride 100 meq/Potassium Chloride 40 meq/ Magnesium Sulfate 20 meq/Calcium Gluconate 15 meq/ Multivitamins 10 ml/Chromium/ Copper/Manganese/ Seleni/Zn 0.5 ml/ Insulin Human Regular 35 unit/ Total Parenteral Nutrition/Amino Acids/Dextrose/ Fat Emulsion Intravenous 1,400 ml @ 58.333 mls/ hr TPN CONT 08/10/19 22:00 08/11/19 21:59 DC 08/10/19 22:27 58.333 MLS/HR Sodium Chloride 100 meq/Potassium Phosphate 10 mmol/ Magnesium Sulfate 12 meq/Calcium Gluconate 15 meq/ Multivitamins 10 ml/Chromium/ Copper/Manganese/ Seleni/Zn 0.5 ml/ Insulin Human Regular 35 unit/ Potassium Chloride 20 meq/ Total Parenteral Nutrition/Amino Acids/Dextrose/ Fat Emulsion Intravenous 1,400 ml @ 58.333 mls/ hr TPN CONT 08/04/19 22:00 08/05/19 21:59 DC 08/04/19 22:10 58.333 MLS/HR Sodium Chloride 100 meq/Potassium Phosphate 19 mmol/ Magnesium Sulfate 12 meq/Calcium Gluconate 15 meq/ Multivitamins 10 ml/Chromium/ Copper/Manganese/ Seleni/Zn 0.5 ml/ Insulin Human Regular 40 unit/ Potassium Chloride 20 meq/ Total Parenteral Nutrition/Amino Acids/Dextrose/ Fat Emulsion Intravenous 1,400 ml @ 58.333 mls/ hr TPN CONT 08/03/19 22:00 08/04/19 21:59 DC 08/03/19 21:20 58.333 MLS/HR Sodium Chloride 100 meq/Potassium Phosphate 5 mmol/ Magnesium Sulfate 12 meq/Calcium Gluconate 15 meq/ Multivitamins 10 ml/Chromium/ Copper/Manganese/ Seleni/Zn 0.5 ml/ Insulin Human Regular 35 unit/ Potassium Chloride 20 meq/ Total Parenteral Nutrition/Amino Acids/Dextrose/ Fat Emulsion Intravenous 1,400 ml @ 58.333 mls/ hr TPN CONT 08/05/19 22:00 08/06/19 21:59 DC 08/05/19 22:59 58.333 MLS/HR Succinylcholine Chloride (Anectine) 120 mg 1X ONCE 07/11/19 08:30 07/11/19 08:31 DC 07/11/19 08:34 120 MG Vecuronium [place] (Norcuron Bolus) 6 mg PRN Q6HRS PRN 08/25/19 19:15 08/25/19 19:35 DC Lab Laboratory Tests Test 08/25/19 17:57 08/26/19 00:26 5/8/20 05:45 08/26/19 05:46 Glucose (Fingerstick) 152 mg/dL (70-99) 134 mg/dL (70-99) 142 mg/dL (70-99) White Blood Count 10.4 x10^3/uL (4.0-11.0) Red Blood Count 2.69 x10^6/uL (3.50-5.40) Hemoglobin 7.8 g/dL (12.0-15.5) Hematocrit 24.3 % (36.0-47.0) Mean Corpuscular Volume 91 fL (79-100) Mean Corpuscular Hemoglobin 29 pg (25-35) Mean Corpuscular Hemoglobin Concent 32 g/dL (31-37) Red Cell Distribution Width 17.5 % (11.5-14.5) Platelet Count 408 x10^3/uL (140-400) Neutrophils (%) (Auto) 78 % (31-73) Lymphocytes (%) (Auto) 15 % (24-48) Monocytes (%) (Auto) 5 % (0-9) Eosinophils (%) (Auto) 2 % (0-3) Basophils (%) (Auto) 0 % (0-3) Neutrophils # (Auto) 8.1 x10^3/uL (1.8-7.7) Lymphocytes # (Auto) 1.5 x10^3/uL (1.0-4.8) Monocytes # (Auto) 0.5 x10^3/uL (0.0-1.1) Eosinophils # (Auto) 0.2 x10^3/uL (0.0-0.7) Basophils # (Auto) 0.0 x10^3/uL (0.0-0.2) Sodium Level 149 mmol/L (136-145) Potassium Level 4.0 mmol/L (3.5-5.1) Chloride Level 112 mmol/L (98-107) Carbon Dioxide Level 31 mmol/L (21-32) Anion Gap 6 (6-14) Blood Urea Nitrogen 37 mg/dL (7-20) Creatinine 0.8 mg/dL (0.6-1.0) Estimated GFR (Cockcroft-Gault) 76.2 BUN/Creatinine Ratio 46 (6-20) Glucose Level 156 mg/dL (70-99) Calcium Level 8.9 mg/dL (8.5-10.1) Total Bilirubin 0.5 mg/dL (0.2-1.0) Aspartate Amino Transf (AST/SGOT) 42 U/L (15-37) Alanine Aminotransferase (ALT/SGPT) 39 U/L (14-59) Alkaline Phosphatase 91 U/L (46-116) Total Protein 5.8 g/dL (6.4-8.2) Albumin 1.7 g/dL (3.4-5.0) Albumin/Globulin Ratio 0.4 (1.0-1.7) Triglycerides Level 199 mg/dL (0-150) Test 08/26/19 12:36 Glucose (Fingerstick) 151 mg/dL (70-99) Results All relevant outside records, renal labs, imaging studies, telemetry/EKG's were reviewed. VERENA KENT MD August 26, 2019 13:18
--- NOTE | 2019-08-26 14:25 | PDOC ---
SURGICAL PROGRESS NOTE Subjective Steven for Dr Servin pt seen in ICU mother at bedside Vital Signs Vital Signs Date Time Temp Pulse Resp B/P (MAP) Pulse Ox O2 Delivery O2 Flow Rate FiO2 08/26/19 12:47 26 97 Ventilator 08/26/19 12:00 78 113/58 (76) 08/26/19 10:17 15.0 08/26/19 08:00 97.5 97.5 I&O Intake and Output 08/26/19 06:59 Intake Total 3985.1 ml Output Total 4075 ml Balance -89.9 ml IV Total 3285.1 ml Other 700 ml Output Urine Total 3875 ml Gastric Drainage Total 200 ml PATIENT HAS A ROSARIO: Yes (accurate I and O) Lungs: Other (vent support via trach) Abdomen: Soft Labs Laboratory Tests Test 08/24/19 16:40 08/24/19 17:30 08/25/19 00:09 08/25/19 05:00 Hemoglobin 7.8 g/dL (12.0-15.5) 7.1 g/dL (12.0-15.5) Hematocrit 24.1 % (36.0-47.0) 21.9 % (36.0-47.0) Mean Corpuscular Hemoglobin Concent 32 g/dL (31-37) 33 g/dL (31-37) Glucose (Fingerstick) 108 mg/dL (70-99) 100 mg/dL (70-99) 139 mg/dL (70-99) White Blood Count 9.1 x10^3/uL (4.0-11.0) Red Blood Count 2.44 x10^6/uL (3.50-5.40) Mean Corpuscular Volume 90 fL (79-100) Mean Corpuscular Hemoglobin 29 pg (25-35) Red Cell Distribution Width 17.5 % (11.5-14.5) Platelet Count 382 x10^3/uL (140-400) Neutrophils (%) (Auto) 73 % (31-73) Lymphocytes (%) (Auto) 21 % (24-48) Monocytes (%) (Auto) 5 % (0-9) Eosinophils (%) (Auto) 1 % (0-3) Basophils (%) (Auto) 0 % (0-3) Neutrophils # (Auto) 6.6 x10^3/uL (1.8-7.7) Lymphocytes # (Auto) 1.9 x10^3/uL (1.0-4.8) Monocytes # (Auto) 0.5 x10^3/uL (0.0-1.1) Eosinophils # (Auto) 0.1 x10^3/uL (0.0-0.7) Basophils # (Auto) 0.0 x10^3/uL (0.0-0.2) Sodium Level 152 mmol/L (136-145) Potassium Level 4.2 mmol/L (3.5-5.1) Chloride Level 116 mmol/L (98-107) Carbon Dioxide Level 31 mmol/L (21-32) Anion Gap 5 (6-14) Blood Urea Nitrogen 39 mg/dL (7-20) Creatinine 1.0 mg/dL (0.6-1.0) Estimated GFR (Cockcroft-Gault) 58.9 Glucose Level 153 mg/dL (70-99) Calcium Level 8.4 mg/dL (8.5-10.1) Phosphorus Level 3.3 mg/dL (2.6-4.7) Magnesium Level 2.0 mg/dL (1.8-2.4) Test 08/25/19 11:44 08/25/19 17:57 08/26/19 00:26 08/26/19 05:45 Glucose (Fingerstick) 150 mg/dL (70-99) 152 mg/dL (70-99) 134 mg/dL (70-99) White Blood Count 10.4 x10^3/uL (4.0-11.0) Red Blood Count 2.69 x10^6/uL (3.50-5.40) Hemoglobin 7.8 g/dL (12.0-15.5) Hematocrit 24.3 % (36.0-47.0) Mean Corpuscular Volume 91 fL (79-100) Mean Corpuscular Hemoglobin 29 pg (25-35) Mean Corpuscular Hemoglobin Concent 32 g/dL (31-37) Red Cell Distribution Width 17.5 % (11.5-14.5) Platelet Count 408 x10^3/uL (140-400) Neutrophils (%) (Auto) 78 % (31-73) Lymphocytes (%) (Auto) 15 % (24-48) Monocytes (%) (Auto) 5 % (0-9) Eosinophils (%) (Auto) 2 % (0-3) Basophils (%) (Auto) 0 % (0-3) Neutrophils # (Auto) 8.1 x10^3/uL (1.8-7.7) Lymphocytes # (Auto) 1.5 x10^3/uL (1.0-4.8) Monocytes # (Auto) 0.5 x10^3/uL (0.0-1.1) Eosinophils # (Auto) 0.2 x10^3/uL (0.0-0.7) Basophils # (Auto) 0.0 x10^3/uL (0.0-0.2) Sodium Level 149 mmol/L (136-145) Potassium Level 4.0 mmol/L (3.5-5.1) Chloride Level 112 mmol/L (98-107) Carbon Dioxide Level 31 mmol/L (21-32) Anion Gap 6 (6-14) Blood Urea Nitrogen 37 mg/dL (7-20) Creatinine 0.8 mg/dL (0.6-1.0) Estimated GFR (Cockcroft-Gault) 76.2 BUN/Creatinine Ratio 46 (6-20) Glucose Level 156 mg/dL (70-99) Calcium Level 8.9 mg/dL (8.5-10.1) Total Bilirubin 0.5 mg/dL (0.2-1.0) Aspartate Amino Transf (AST/SGOT) 42 U/L (15-37) Alanine Aminotransferase (ALT/SGPT) 39 U/L (14-59) Alkaline Phosphatase 91 U/L (46-116) Total Protein 5.8 g/dL (6.4-8.2) Albumin 1.7 g/dL (3.4-5.0) Albumin/Globulin Ratio 0.4 (1.0-1.7) Triglycerides Level 199 mg/dL (0-150) Test 08/26/19 05:46 08/26/19 12:36 Glucose (Fingerstick) 142 mg/dL (70-99) 151 mg/dL (70-99) Laboratory Tests Test 08/25/19 17:57 08/26/19 00:26 08/26/19 05:45 08/26/19 05:46 Glucose (Fingerstick) 152 mg/dL (70-99) 134 mg/dL (70-99) 142 mg/dL (70-99) White Blood Count 10.4 x10^3/uL (4.0-11.0) Red Blood Count 2.69 x10^6/uL (3.50-5.40) Hemoglobin 7.8 g/dL (12.0-15.5) Hematocrit 24.3 % (36.0-47.0) Mean Corpuscular Volume 91 fL (79-100) Mean Corpuscular Hemoglobin 29 pg (25-35) Mean Corpuscular Hemoglobin Concent 32 g/dL (31-37) Red Cell Distribution Width 17.5 % (11.5-14.5) Platelet Count 408 x10^3/uL (140-400) Neutrophils (%) (Auto) 78 % (31-73) Lymphocytes (%) (Auto) 15 % (24-48) Monocytes (%) (Auto) 5 % (0-9) Eosinophils (%) (Auto) 2 % (0-3) Basophils (%) (Auto) 0 % (0-3) Neutrophils # (Auto) 8.1 x10^3/uL (1.8-7.7) Lymphocytes # (Auto) 1.5 x10^3/uL (1.0-4.8) Monocytes # (Auto) 0.5 x10^3/uL (0.0-1.1) Eosinophils # (Auto) 0.2 x10^3/uL (0.0-0.7) Basophils # (Auto) 0.0 x10^3/uL (0.0-0.2) Sodium Level 149 mmol/L (136-145) Potassium Level 4.0 mmol/L (3.5-5.1) Chloride Level 112 mmol/L (98-107) Carbon Dioxide Level 31 mmol/L (21-32) Anion Gap 6 (6-14) Blood Urea Nitrogen 37 mg/dL (7-20) Creatinine 0.8 mg/dL (0.6-1.0) Estimated GFR (Cockcroft-Gault) 76.2 BUN/Creatinine Ratio 46 (6-20) Glucose Level 156 mg/dL (70-99) Calcium Level 8.9 mg/dL (8.5-10.1) Total Bilirubin 0.5 mg/dL (0.2-1.0) Aspartate Amino Transf (AST/SGOT) 42 U/L (15-37) Alanine Aminotransferase (ALT/SGPT) 39 U/L (14-59) Alkaline Phosphatase 91 U/L (46-116) Total Protein 5.8 g/dL (6.4-8.2) Albumin 1.7 g/dL (3.4-5.0) Albumin/Globulin Ratio 0.4 (1.0-1.7) Triglycerides Level 199 mg/dL (0-150) Test 08/26/19 12:36 Glucose (Fingerstick) 151 mg/dL (70-99) I have reviewed the following results of CT guided placement abdominal drains noted Problem List Problems Medical Problems: (1) Acute pancreatitis Status: Acute (2) Cholelithiasis Status: Acute Assessment/Plan no new surgical recs talked with her mom, questions answered MARV WYNNE MD August 26, 2019 14:25
--- NOTE | 2019-08-26 14:27 | PDOC ---
PROGRESS NOTES Chief Complaint Chief Complaint Acute hypoxic Respiratory failure requiring mechanical ventilation (on vent since 07/10) Tracheostomy bilateral pleural effusions/pulm edema Sepsis Severe Acute gallstone pancreatitis (not a surgical candidate at this time) with necrosis Acute kidney failure now requiring dialysis Salpingitis Gallstones (Calculus of gallbladder with acute cholecystitis without obstruction) HTN Leukocytosis Hypoxia Uterine fibroid Intractable pain Intractable nausea Covid 19 negative. Acute on chronic anemia EEG: No seizure activity ESRD on HD Hyperglycemia Plan: Continue with supportive measures status post IR procedure BRIEF OPERATIVE NOTE Pre-Op Diagnosis Pancreatitis with pseudocysts, suspected infection Post-Op Diagnosis same Procedure Performed CT abdominal Drains x 3 Surgeon Tesfaye Anesthesia Type: Conscious Sedation Findings 3 abdominal drains, 14F, with turbid pancreatic fluid and necrotic debris in each. Complications No immediate History of Present Illness History of Present Illness Ms Diaz is a 48yo F w/ PMHx HTN, prediabetes who presented to the emergency room with complaints of abdominal pain on 07/04/2019. Found with Lipase [id number], AST 401, ALT 249, Bilirubin 1.4. CT abdomen confirms pancreatic inflammation, peripancreatic fluid and inflammatory changes around the pancreas consistent with pancreatitis. Cholelithiasis and 1.4cm uterine fibroid as well as possible left salpingitis. Admitted for further care GI, General surgery, ID, Pulm consulted. 07/04: PICC placed per IR. Renal US negative. Started on levophed. Repeat CT abdomen w/ necrosis; 07/05: Dialysis catheter per nephrology; 07/06: On BiPAP; 07/07: BiPAP, dialysis; 07/08: Overnight Tmax 101.7 , still on BiPAP FiO2 40%, still on low dose Levophed gtt, TPN initiated. On dialysis 07/24: Tracheostomy; 07/30: S/p tracheostomy on vent spontaneous respirations with 5 of pressure support 35% FiO2, rectal tube and a Lind, off pressors; 08/01:Still on vent via trach. Removed PICC and CVC LIJ and replaced. CT chest/abd/pelvis with bilateral pleural effusion and ascites. 08/02: Renal function stable. Still on vent. More interactive today. Miming wish for food. Plan discussed for thoracentesis/paracentesis with daughters today. They were under impression patient was doing worse due to a miscommunication which has been clarified over the phone. 4.3L removed. 08/04: Febrile overnight 101.8F. More interactive, still on vent. Asking for ice by miming; 08/05: Afebrile overnight. TMax last 24 hours 100.6F. Hb 7.1. Interactive when awake. 08/09: Transfusion 1u PRBC (6U total since admit) 08/10-08/13: TPN and precedex, vent. 08/14: Tmax 101F overnight. Hb 8.2. HD cath out since 08/11. Alert. On vent SIMV 35% FiO2. Surgery: ex-lap, no ronel or pancreatic necrosectomy 2/ profound inflammation. 08/15: Seen POD #1. Afebrile overnight. BUN 62. CBC WNL today.Remains on vent via trach, TPN. Able to point today and indicate she wishes her daughters and Jamaal to be involved in her care. 08/16: Hb 7.4, Na 151. Remains on vent via trach, TPN. off HD for now. Not tolerating trach shield well. 08/17: Negative US for UE DVT. More relaxed today. Has some increase in UOP. Tolerating vent well. She is requesting to eat and drink via writing. T max 100F 24 hours ago, but 101F at 1200. Right PICC placed. Speaking valve for half the day in [facility] 08/18: Na 153 today. Good UOP. Tmax 101F at 1200 on 08/17. She becomes a bit anxious and did not sleep much last night, wishes to try to sleep this morning 08/19: Able to speak well with speaking valve today. Na 153, K2.9, Mg 1.8, Cr 1. 100.4F axillary temp overnight. Asking for food. 08/20: Afebrile overnight. ABG with pH 7.27/75/123. Hb 7.1. Na 153. 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 She is saturating well and not requiring ventilation support, no acute events reported overnight seems to be slowly improving 08/23: Patient requiring transfusion of packed red blood cells due to anemia, no evidence of acute bleeding, appreciate GI architectural sales consultant recommendations 08/24: Patient required ventilatory support given that she desaturated, she is lying in bed in mild distress, case discussed with nursing staff, no evidence of bleeding, h an h noted. 08/25: Underwent IR procedure as follows BRIEF OPERATIVE NOTE Pre-Op Diagnosis Pancreatitis with pseudocysts, suspected infection Post-Op Diagnosis same Procedure Performed CT abdominal Drains x 3 Surgeon Tesfaye Anesthesia Type: Conscious Sedation Findings 3 abdominal drains, 14F, with turbid pancreatic fluid and necrotic debris in each. Complications No immediate Plan: vent support, wean if possible throughout the day Encourage activity as tolerated Monitor fever curve, no obvious source of infection, possibly some aspiration events, atelectasis will monitor for bleeding. Vitals Vitals Vital Signs Date Time Temp Pulse Resp B/P (MAP) Pulse Ox O2 Delivery O2 Flow Rate FiO2 08/26/19 12:47 26 97 Ventilator 08/26/19 12:00 78 113/58 (76) 08/26/19 10:17 15.0 08/26/19 08:00 97.5 97.5 Physical Exam Physical Exam GENERAL: Propped up in bed. Alert and coop. Looks a little tired HEENT: oral cavity dry, NGT NECK: Trach/vent LUNGS: rhonchi HEART: S1, S2, regular ABDOMEN: Distended, hypoactive BS, drain placement (08/14 - serous fluid) : Lind (08/01) EXTREMITIES: Generalized edema, no cyanosis, SCDs bilaterally DERMATOLOGIC: Warm and dry. No generalized rash. CENTRAL NERVOUS SYSTEM: weak, mouthing words to simple questions PICC line in place August 18, 2019 clean HDC has been removed LIJ removed General: Alert, Oriented X3, Cooperative, No acute distress Heart: Regular rate, No murmurs Lungs: Crackles Abdomen: Soft, No tenderness, Other (NGT with bilious aspirate) Extremities: No edema Skin: Other (mottling noted to extremities ) Labs LABS Laboratory Tests Test 08/25/19 17:57 08/26/19 00:26 08/26/19 05:45 08/26/19 05:46 Glucose (Fingerstick) 152 mg/dL (70-99) 134 mg/dL (70-99) 142 mg/dL (70-99) White Blood Count 10.4 x10^3/uL (4.0-11.0) Red Blood Count 2.69 x10^6/uL (3.50-5.40) Hemoglobin 7.8 g/dL (12.0-15.5) Hematocrit 24.3 % (36.0-47.0) Mean Corpuscular Volume 91 fL (79-100) Mean Corpuscular Hemoglobin 29 pg (25-35) Mean Corpuscular Hemoglobin Concent 32 g/dL (31-37) Red Cell Distribution Width 17.5 % (11.5-14.5) Platelet Count 408 x10^3/uL (140-400) Neutrophils (%) (Auto) 78 % (31-73) Lymphocytes (%) (Auto) 15 % (24-48) Monocytes (%) (Auto) 5 % (0-9) Eosinophils (%) (Auto) 2 % (0-3) Basophils (%) (Auto) 0 % (0-3) Neutrophils # (Auto) 8.1 x10^3/uL (1.8-7.7) Lymphocytes # (Auto) 1.5 x10^3/uL (1.0-4.8) Monocytes # (Auto) 0.5 x10^3/uL (0.0-1.1) Eosinophils # (Auto) 0.2 x10^3/uL (0.0-0.7) Basophils # (Auto) 0.0 x10^3/uL (0.0-0.2) Sodium Level 149 mmol/L (136-145) Potassium Level 4.0 mmol/L (3.5-5.1) Chloride Level 112 mmol/L (98-107) Carbon Dioxide Level 31 mmol/L (21-32) Anion Gap 6 (6-14) Blood Urea Nitrogen 37 mg/dL (7-20) Creatinine 0.8 mg/dL (0.6-1.0) Estimated GFR (Cockcroft-Gault) 76.2 BUN/Creatinine Ratio 46 (6-20) Glucose Level 156 mg/dL (70-99) Calcium Level 8.9 mg/dL (8.5-10.1) Total Bilirubin 0.5 mg/dL (0.2-1.0) Aspartate Amino Transf (AST/SGOT) 42 U/L (15-37) Alanine Aminotransferase (ALT/SGPT) 39 U/L (14-59) Alkaline Phosphatase 91 U/L (46-116) Total Protein 5.8 g/dL (6.4-8.2) Albumin 1.7 g/dL (3.4-5.0) Albumin/Globulin Ratio 0.4 (1.0-1.7) Triglycerides Level 199 mg/dL (0-150) Test 08/26/19 12:36 Glucose (Fingerstick) 151 mg/dL (70-99) Assessment and Plan Assessmemt and Plan Problems Medical Problems: (1) Acute pancreatitis Status: Acute (2) Cholelithiasis Status: Acute Comment Review of Relevant I have reviewed the following items kolby (where applicable) has been applied. Labs Laboratory Tests Test 08/24/19 16:40 08/24/19 17:30 08/25/19 00:09 08/25/19 05:00 Hemoglobin 7.8 g/dL (12.0-15.5) 7.1 g/dL (12.0-15.5) Hematocrit 24.1 % (36.0-47.0) 21.9 % (36.0-47.0) Mean Corpuscular Hemoglobin Concent 32 g/dL (31-37) 33 g/dL (31-37) Glucose (Fingerstick) 108 mg/dL (70-99) 100 mg/dL (70-99) 139 mg/dL (70-99) White Blood Count 9.1 x10^3/uL (4.0-11.0) Red Blood Count 2.44 x10^6/uL (3.50-5.40) Mean Corpuscular Volume 90 fL (79-100) Mean Corpuscular Hemoglobin 29 pg (25-35) Red Cell Distribution Width 17.5 % (11.5-14.5) Platelet Count 382 x10^3/uL (140-400) Neutrophils (%) (Auto) 73 % (31-73) Lymphocytes (%) (Auto) 21 % (24-48) Monocytes (%) (Auto) 5 % (0-9) Eosinophils (%) (Auto) 1 % (0-3) Basophils (%) (Auto) 0 % (0-3) Neutrophils # (Auto) 6.6 x10^3/uL (1.8-7.7) Lymphocytes # (Auto) 1.9 x10^3/uL (1.0-4.8) Monocytes # (Auto) 0.5 x10^3/uL (0.0-1.1) Eosinophils # (Auto) 0.1 x10^3/uL (0.0-0.7) Basophils # (Auto) 0.0 x10^3/uL (0.0-0.2) Sodium Level 152 mmol/L (136-145) Potassium Level 4.2 mmol/L (3.5-5.1) Chloride Level 116 mmol/L (98-107) Carbon Dioxide Level 31 mmol/L (21-32) Anion Gap 5 (6-14) Blood Urea Nitrogen 39 mg/dL (7-20) Creatinine 1.0 mg/dL (0.6-1.0) Estimated GFR (Cockcroft-Gault) 58.9 Glucose Level 153 mg/dL (70-99) Calcium Level 8.4 mg/dL (8.5-10.1) Phosphorus Level 3.3 mg/dL (2.6-4.7) Magnesium Level 2.0 mg/dL (1.8-2.4) Test 08/25/19 11:44 08/25/19 17:57 08/26/19 00:26 08/26/19 05:45 Glucose (Fingerstick) 150 mg/dL (70-99) 152 mg/dL (70-99) 134 mg/dL (70-99) White Blood Count 10.4 x10^3/uL (4.0-11.0) Red Blood Count 2.69 x10^6/uL (3.50-5.40) Hemoglobin 7.8 g/dL (12.0-15.5) Hematocrit 24.3 % (36.0-47.0) Mean Corpuscular Volume 91 fL (79-100) Mean Corpuscular Hemoglobin 29 pg (25-35) Mean Corpuscular Hemoglobin Concent 32 g/dL (31-37) Red Cell Distribution Width 17.5 % (11.5-14.5) Platelet Count 408 x10^3/uL (140-400) Neutrophils (%) (Auto) 78 % (31-73) Lymphocytes (%) (Auto) 15 % (24-48) Monocytes (%) (Auto) 5 % (0-9) Eosinophils (%) (Auto) 2 % (0-3) Basophils (%) (Auto) 0 % (0-3) Neutrophils # (Auto) 8.1 x10^3/uL (1.8-7.7) Lymphocytes # (Auto) 1.5 x10^3/uL (1.0-4.8) Monocytes # (Auto) 0.5 x10^3/uL (0.0-1.1) Eosinophils # (Auto) 0.2 x10^3/uL (0.0-0.7) Basophils # (Auto) 0.0 x10^3/uL (0.0-0.2) Sodium Level 149 mmol/L (136-145) Potassium Level 4.0 mmol/L (3.5-5.1) Chloride Level 112 mmol/L (98-107) Carbon Dioxide Level 31 mmol/L (21-32) Anion Gap 6 (6-14) Blood Urea Nitrogen 37 mg/dL (7-20) Creatinine 0.8 mg/dL (0.6-1.0) Estimated GFR (Cockcroft-Gault) 76.2 BUN/Creatinine Ratio 46 (6-20) Glucose Level 156 mg/dL (70-99) Calcium Level 8.9 mg/dL (8.5-10.1) Total Bilirubin 0.5 mg/dL (0.2-1.0) Aspartate Amino Transf (AST/SGOT) 42 U/L (15-37) Alanine Aminotransferase (ALT/SGPT) 39 U/L (14-59) Alkaline Phosphatase 91 U/L (46-116) Total Protein 5.8 g/dL (6.4-8.2) Albumin 1.7 g/dL (3.4-5.0) Albumin/Globulin Ratio 0.4 (1.0-1.7) Triglycerides Level 199 mg/dL (0-150) Test 08/26/19 05:46 08/26/19 12:36 Glucose (Fingerstick) 142 mg/dL (70-99) 151 mg/dL (70-99) Laboratory Tests Test 08/25/19 17:57 08/26/19 00:26 08/26/19 05:45 08/26/19 05:46 Glucose (Fingerstick) 152 mg/dL (70-99) 134 mg/dL (70-99) 142 mg/dL (70-99) White Blood Count 10.4 x10^3/uL (4.0-11.0) Red Blood Count 2.69 x10^6/uL (3.50-5.40) Hemoglobin 7.8 g/dL (12.0-15.5) Hematocrit 24.3 % (36.0-47.0) Mean Corpuscular Volume 91 fL (79-100) Mean Corpuscular Hemoglobin 29 pg (25-35) Mean Corpuscular Hemoglobin Concent 32 g/dL (31-37) Red Cell Distribution Width 17.5 % (11.5-14.5) Platelet Count 408 x10^3/uL (140-400) Neutrophils (%) (Auto) 78 % (31-73) Lymphocytes (%) (Auto) 15 % (24-48) Monocytes (%) (Auto) 5 % (0-9) Eosinophils (%) (Auto) 2 % (0-3) Basophils (%) (Auto) 0 % (0-3) Neutrophils # (Auto) 8.1 x10^3/uL (1.8-7.7) Lymphocytes # (Auto) 1.5 x10^3/uL (1.0-4.8) Monocytes # (Auto) 0.5 x10^3/uL (0.0-1.1) Eosinophils # (Auto) 0.2 x10^3/uL (0.0-0.7) Basophils # (Auto) 0.0 x10^3/uL (0.0-0.2) Sodium Level 149 mmol/L (136-145) Potassium Level 4.0 mmol/L (3.5-5.1) Chloride Level 112 mmol/L (98-107) Carbon Dioxide Level 31 mmol/L (21-32) Anion Gap 6 (6-14) Blood Urea Nitrogen 37 mg/dL (7-20) Creatinine 0.8 mg/dL (0.6-1.0) Estimated GFR (Cockcroft-Gault) 76.2 BUN/Creatinine Ratio 46 (6-20) Glucose Level 156 mg/dL (70-99) Calcium Level 8.9 mg/dL (8.5-10.1) Total Bilirubin 0.5 mg/dL (0.2-1.0) Aspartate Amino Transf (AST/SGOT) 42 U/L (15-37) Alanine Aminotransferase (ALT/SGPT) 39 U/L (14-59) Alkaline Phosphatase 91 U/L (46-116) Total Protein 5.8 g/dL (6.4-8.2) Albumin 1.7 g/dL (3.4-5.0) Albumin/Globulin Ratio 0.4 (1.0-1.7) Triglycerides Level 199 mg/dL (0-150) Test 08/26/19 12:36 Glucose (Fingerstick) 151 mg/dL (70-99) Microbiology 08/22/19 Blood Culture - Preliminary, Resulted NO GROWTH AFTER 4 DAYS 08/18/19 Aerobic Culture - Final, Complete 08/18/19 Aerobic Culture Result 1 (ALEXANDRA) - Final, Complete 08/18/19 Gram Stain - Final, Complete 08/18/19 Gram Stain Result 1 (ALEXANDRA) - Final, Complete 08/18/19 Gram Stain Result 2 (ALEXANDRA) - Final, Complete 08/15/19 Aerobic and Anaerobic Culture - Final, Complete 08/15/19 Anaerobic Culture Result 1 (ALEXANDRA) - Final, Complete 08/15/19 Aerobic Culture - Final, Complete 08/15/19 Aerobic Culture Result 1 (ALEXANDRA) - Final, Complete 08/15/19 Gram Stain - Final, Complete 08/15/19 Gram Stain Result 1 (ALEXANDRA) - Final, Complete 08/15/19 Gram Stain Result 2 (ALEXANDRA) - Final, Complete 07/31/19 Urine Culture - Final, Complete 07/31/19 Urine Culture Result 1 (ALEXANDRA) - Final, Complete Medications Current Medications Sodium Chloride 1,000 ml @ 1,000 mls/hr Q1H IV Last administered on 07/04/19at 03:00; Start 07/04/19 at 03:00; Stop 07/04/19 at 03:59; Status DC Ondansetron HCl (Zofran) 4 mg 1X ONCE IVP Last administered on 07/04/19at 03:27; Start 07/04/19 at 03:00; Stop 07/04/19 at 03:01; Status DC Morphine Sulfate (Morphine Sulfate) 4 mg 1X ONCE IV ; Start 07/04/19 at 03:00; Stop 07/04/19 at 03:01; Status Cancel Ketorolac Tromethamine (Toradol 30mg Vial) 30 mg 1X ONCE IV Last administered on 07/04/19at 02:54; Start 07/04/19 at 03:00; Stop 07/04/19 at 03:01; Status DC Fentanyl Citrate (Fentanyl 2ml Vial) 25 mcg 1X ONCE IVP Last administered on 07/04/19at 03:23; Start 07/04/19 at 03:30; Stop 07/04/19 at 03:31; Status DC Fentanyl Citrate (Fentanyl 2ml Vial) 100 mcg STK-MED ONCE .ROUTE ; Start 07/04/19 at 03:18; Stop 07/04/19 at 03:18; Status DC Iohexol (Omnipaque 350 Mg/ml) 90 ml 1X ONCE IV Last administered on 07/04/19at 03:25; Start 07/04/19 at 03:30; Stop 07/04/19 at 03:31; Status DC Info (CONTRAST GIVEN -- Rx MONITORING) 1 each PRN DAILY PRN MC SEE COMMENTS; Start 07/04/19 at 03:30; Stop 07/06/19 at 03:29; Status DC Hydromorphone HCl (Dilaudid) 0.5 mg 1X ONCE IV Last administered on 07/04/19at 03:55; Start 07/04/19 at 04:30; Stop 07/04/19 at 04:32; Status DC Ondansetron HCl (Zofran) 4 mg PRN Q8HRS PRN IV NAUSEA/VOMITING 1ST CHOICE; Start 07/04/19 at 05:00; Stop 07/04/19 at 09:27; Status DC Morphine Sulfate (Morphine Sulfate) 2 mg PRN Q2HR PRN IV SEVERE PAIN 7-10 Last administered on 07/05/19at 12:26; Start 07/04/19 at 05:00; Stop 07/05/19 at 14:15; Status DC Sodium Chloride 1,000 ml @ 125 mls/hr Q8H IV Last administered on 07/04/19at 20:56; Start 07/04/19 at 05:00; Stop 07/05/19 at 04:59; Status DC Hydromorphone HCl (Dilaudid) 0.5 mg PRN Q3HRS PRN IV SEVERE PAIN 7-10 Last administered on 07/05/19at 10:06; Start 07/04/19 at 05:00; Stop 07/05/19 at 12:01 ; Status DC Piperacillin Sod/ Tazobactam Sod 4.5 gm/Sodium Chloride 100 ml @ 200 mls/hr 1X ONCE IV Last administered on 07/04/19at 05:44; Start 07/04/19 at 06:00; Stop 07/04/19 at 06:29; Status DC Ondansetron HCl (Zofran) 4 mg PRN Q4HRS PRN IV NAUSEA/VOMITING 1ST CHOICE Last administered on 08/25/19at 08:07; Start 07/04/19 at 09:30 Insulin Human Lispro (HumaLOG) 0-9 UNITS Q6HRS SQ Last administered on 08/26/19at 12:44; Start 07/04/19 at 09:30 Dextrose (Dextrose 50%-Water Syringe) 12.5 gm PRN Q15MIN PRN IV SEE COMMENTS; Start 07/04/19 at 09:30 Pantoprazole Sodium (PROTONIX VIAL for IV PUSH) 40 mg DAILYAC IVP Last administered on 08/26/19at 08:25; Start 07/04/19 at 11:30 Prochlorperazine Edisylate (Compazine) 10 mg PRN Q6HRS PRN IV NAUSEA/VOMITING, 2nd CHOICE Last administered on 08/25/19at 03:57; Start 07/04/19 at 17:45 Atenolol (Tenormin) 100 mg DAILY PO ; Start 07/05/19 at 09:00; Stop 07/04/19 at 20:08; Status DC Metoprolol Tartrate (Lopressor Vial) 2.5 mg Q6HRS IVP Last administered on 07/05/19at 05:51; Start 07/04/19 at 20:15; Stop 07/05/19 at 10:02; Status DC Metoprolol Tartrate (Lopressor Vial) 5 mg Q6HRS IVP Last administered on 07/14/19at 00:12; Start 07/05/19 at 10:15; Stop 07/16/19 at 08:48; Status DC Hydromorphone HCl (Dilaudid) 1 mg PRN Q3HRS PRN IV SEVERE PAIN 7-10 Last administered on 07/11/19at 05:13; Start 07/05/19 at 12:00; Stop 07/19/19 at 00:25; Status DC Lidocaine HCl (Buffered Lidocaine 1%) 3 ml STK-MED ONCE .ROUTE ; Start 07/05/19 at 12:55; Stop 07/05/19 at 12:56; Status DC Albumin Human 500 ml @ 125 mls/hr 1X ONCE IV Last administered on 07/05/19at 14:33; Start 07/05/19 at 14:30; Stop 07/05/19 at 18:32; Status DC Norepinephrine Bitartrate 8 mg/ Dextrose 258 ml @ 17.299 mls/ hr CONT PRN IV PER PROTOCOL Last administered on 08/02/19at 12:48; Start 07/05/19 at 15:30; Stop 08/05/19 at 09:19; Status DC Sodium Chloride 1,000 ml @ 125 mls/hr Q8H IV Last administered on 07/05/19at 21:04; Start 07/05/19 at 16:00; Stop 07/06/19 at 02:42; Status DC Albumin Human 500 ml @ 125 mls/hr PRN BID PRN IV After every 2L NSS & BP < 90mm Last administered on 07/20/19at 14:21; Start 07/05/19 at 16:00 Iohexol (Omnipaque 300 Mg/ml) 60 ml 1X ONCE IV Last administered on 07/05/19at 17:20; Start 07/05/19 at 17:00; Stop 07/05/19 at 17:01; Status DC Info (CONTRAST GIVEN -- Rx MONITORING) 1 each PRN DAILY PRN MC SEE COMMENTS; Start 07/05/19 at 17:00; Stop 07/07/19 at 16:59; Status DC Meropenem 1 gm/ Sodium Chloride 100 ml @ 200 mls/hr Q8HRS IV Last administered on 07/06/19at 05:45; Start 07/05/19 at 20:00; Stop 07/06/19 at 08:48; Status DC Furosemide (Lasix) 40 mg 1X ONCE IVP Last administered on 07/05/19at 22:12; Start 07/05/19 at 22:30; Stop 07/05/19 at 22:31; Status DC Calcium Chloride 1000 mg/Sodium Chloride 110 ml @ 220 mls/hr 1X ONCE IV Last administered on 07/05/19at 22:11; Start 07/05/19 at 22:30; Stop 07/05/19 at 22:59; Status DC Albuterol Sulfate (Ventolin Neb Soln) 2.5 mg 1X ONCE NEB Last administered on 07/06/19at 00:56; Start 07/05/19 at 22:30; Stop 07/05/19 at 22:31; Status DC Insulin Human Regular (HumuLIN R VIAL) 5 unit 1X ONCE IV Last administered on 07/05/19at 22:14; Start 07/05/19 at 22:30; Stop 07/05/19 at 22:31; Status DC Magnesium Sulfate 50 ml @ 25 mls/hr 1X ONCE IV Last administered on 07/06/19at 02:57; Start 07/06/19 at 03:00; Stop 07/06/19 at 04:59; Status DC Calcium Gluconate 1000 mg/Sodium Chloride 110 ml @ 220 mls/hr 1X ONCE IV Last administered on 07/06/19at 02:46; Start 07/06/19 at 03:00; Stop 07/06/19 at 03:29; Status DC Sodium Chloride 1,000 ml @ 200 mls/hr Q5H IV Last administered on 07/06/19at 02:46; Start 07/06/19 at 03:00; Stop 07/06/19 at 10:21; Status DC Calcium Gluconate 1000 mg/Sodium Chloride 110 ml @ 220 mls/hr 1X ONCE IV Last administered on 07/06/19at 03:21; Start 07/06/19 at 03:30; Stop 07/06/19 at 03:59; Status DC Sodium Bicarbonate 50 meq/Sodium Chloride 1,050 ml @ 75 mls/hr Q14H IV Last administered on 07/10/19at 21:10; Start 07/06/19 at 07:30; Stop 07/11/19 at 10:28; Status DC Calcium Gluconate 2000 mg/Sodium Chloride 120 ml @ 220 mls/hr 1X ONCE IV Last administered on 07/06/19at 09:05; Start 07/06/19 at 07:30; Stop 07/06/19 at 08:02; Status DC Lidocaine HCl (Xylocaine-Mpf 1% 2ml Vial) 2 ml STK-MED ONCE .ROUTE ; Start 07/06/19 at 08:47; Stop 07/06/19 at 08:47; Status DC Meropenem 500 mg/ Sodium Chloride 50 ml @ 100 mls/hr Q12HR IV Last administered on 07/11/19at 21:01; Start 07/06/19 at 18:00; Stop 07/12/19 at 07 :58; Status DC Lidocaine HCl (Buffered Lidocaine 1%) 3 ml STK-MED ONCE .ROUTE ; Start 07/06/19 at 09:46; Stop 07/06/19 at 09:46; Status DC Lidocaine HCl (Buffered Lidocaine 1%) 6 ml 1X ONCE INJ Last administered on 07/06/19at 10:26; Start 07/06/19 at 10:15; Stop 07/06/19 at 10:16; Status DC Info (Tpn Per Pharmacy) 1 each PRN DAILY PRN MC SEE COMMENTS Last administered on 08/26/19at 11:58; Start 07/06/19 at 12:00 Sodium Chloride 1,000 ml @ 1,000 mls/hr Q1H PRN IV hypotension; Start 07/06/19 at 12:07; Stop 07/06/19 at 18:06; Status DC Diphenhydramine HCl (Benadryl) 25 mg 1X PRN PRN IV ITCHING; Start 07/06/19 at 12:15; Stop 07/07/19 at 12:14; Status DC Diphenhydramine HCl (Benadryl) 25 mg 1X PRN PRN IV ITCHING; Start 07/06/19 at 12:15; Stop 07/07/19 at 12:14; Status DC Sodium Chloride 1,000 ml @ 400 mls/hr Q2H30M PRN IV PATENCY; Start 07/06/19 at 12:07; Stop 07/07/19 at 00:06; Status DC Info (PHARMACY MONITORING -- do not chart) 1 each PRN DAILY PRN MC SEE COMMENTS; Start 07/06/19 at 12:15; Stop 07/08/19 at 08:13; Status DC Sodium Chloride 90 meq/Calcium Gluconate 10 meq/ Multivitamins 10 ml/Chromium/ Copper/Manganese/ Seleni/Zn 1 ml/ Total Parenteral Nutrition/Amino Acids/Dextrose/ Fat Emulsion Intravenous 55.005 ml @ 2.292 mls/hr TPN CONT IV ; Start 07/06/19 at 22:00; Stop 07/06/19 at 12:33; Status DC Info (Tpn Per Pharmacy) 1 each PRN DAILY PRN MC SEE COMMENTS; Start 07/06/19 at 12:30; Status UNV Sodium Chloride 90 meq/Calcium Gluconate 10 meq/ Multivitamins 10 ml/Chromium/ Copper/Manganese/ Seleni/Zn 0.5 ml/ Total Parenteral Nutrition/Amino Acids/Dextrose/ Fat Emulsion Intravenous 1,512 ml @ 63 mls/hr TPN CONT IV L ast administered on 07/06/19at 22:06; Start 07/06/19 at 22:00; Stop 07/07/19 at 21:59; Status DC Calcium Carbonate/ Glycine (Tums) 500 mg PRN AFTMEALHC PRN PO INDIGESTION; Start 07/06/19 at 17:45 Calcium Gluconate (Calcium Gluconate) 2,000 mg 1X ONCE IVP Last administered on 07/07/19at 02:19; Start 07/07/19 at 02:15; Stop 07/07/19 at 02:16; Status DC Calcium Chloride 3000 mg/Sodium Chloride 1,030 ml @ 50 mls/hr [id number] IV Last administered on 07/09/19at 02:17; Start 07/07/19 at 08:00; Stop 07/09/19 at 1 5:23; Status DC Lorazepam (Ativan Inj) 1 mg PRN Q4HRS PRN IVP ANXIETY / AGITATION, 2nd choic Last administered on 08/05/19at 03:51; Start 07/07/19 at 09:00; Stop 08/05/19 at 09:19; Status DC Sodium Chloride 1,000 ml @ 1,000 mls/hr Q1H PRN IV hypotension; Start 07/07/19 at 08:56; Stop 07/07/19 at 14:55; Status DC Albumin Human 200 ml @ 200 mls/hr 1X PRN PRN IV Hypotension; Start 07/07/19 at 09:00; Stop 07/07/19 at 14:59; Status DC Diphenhydramine HCl (Benadryl) 25 mg 1X PRN PRN IV ITCHING; Start 07/07/19 at 09:00; Stop 07/08/19 at 08:59; Status DC Diphenhydramine HCl (Benadryl) 25 mg 1X PRN PRN IV ITCHING; Start 07/07/19 at 09:00; Stop 07/08/19 at 08:59; Status DC Sodium Chloride 1,000 ml @ 400 mls/hr Q2H30M PRN IV PATENCY; Start 07/07/19 at 08:56; Stop 07/07/19 at 20:55; Status DC Info (PHARMACY MONITORING -- do not chart) 1 each PRN DAILY PRN MC SEE COMMENTS; Start 07/07/19 at 09:00; Status UNV Info (PHARMACY MONITORING -- do not chart) 1 each PRN DAILY PRN MC SEE COMMENTS; Start 07/07/19 at 09:00; Stop 07/08/19 at 08:13; Status DC Digoxin (Lanoxin) 500 mcg 1X ONCE IV Last administered on 07/07/19at 10:04; Start 07/07/19 at 10:00; Stop 07/07/19 at 10:01; Status DC Digoxin (Lanoxin) 125 mcg 1X ONCE IV Last administered on 07/07/19at 17:10; Start 07/07/19 at 18:00; Stop 07/07/19 at 18:01; Status DC Magnesium Sulfate 100 ml @ 25 mls/hr 1X ONCE IV Last administered on 07/07/19at 12:48; Start 07/07/19 at 13:00; Stop 07/07/19 at 16:59; Status DC Sodium Chloride 90 meq/Magnesium Sulfate 10 meq/ Calcium Gluconate 20 meq/ Multivitamins 10 ml/Chromium/ Copper/Manganese/ Seleni/Zn 0.5 ml/ Total Parenteral Nutrition/Amino Acids/Dextrose/ Fat Emulsion Intravenous 1,512 ml @ 63 mls/hr TPN CONT IV Last administered on 07/07/19at 22:25; Start 07/07/19 at 22:00; Stop 07/08/19 at 21:59; Status DC Sodium Chloride 1,000 ml @ 1,000 mls/hr Q1H PRN IV hypotension; Start 07/08/19 at 08:05; Stop 07/08/19 at 14:04; Status DC Albumin Human 200 ml @ 200 mls/hr 1X ONCE IV Last administered on 07/08/19at 08:57; Start 07/08/19 at 08:15; Stop 07/08/19 at 09:14; Status DC Diphenhydramine HCl (Benadryl) 25 mg 1X PRN PRN IV ITCHING; Start 07/08/19 at 08:15; Stop 07/09/19 at 08:14; Status DC Diphenhydramine HCl (Benadryl) 25 mg 1X PRN PRN IV ITCHING; Start 07/08/19 at 08:15; Stop 07/09/19 at 08:14; Status DC Sodium Chloride 1,000 ml @ 400 mls/hr Q2H30M PRN IV PATENCY; Start 07/08/19 at 08:05; Stop 07/08/19 at 20:04; Status DC Info (PHARMACY MONITORING -- do not chart) 1 each PRN DAILY PRN MC SEE COMMENTS; Start 07/08/19 at 08:15; Stop 07/12/19 at 07:57; Status DC Sodium Chloride 90 meq/Potassium Chloride 15 meq/ Potassium Phosphate 10 mmol/ Magnesium Sulfate 10 meq/Calcium Gluconate 20 meq/ Multivitamins 10 ml/Chromium/ Copper/Manganese/ Seleni/Zn 0.5 ml/ Total Parenteral Nutrition/Amino Acids/Dextrose/ Fat Emulsion Intravenous 1,512 ml @ 63 mls/hr TPN CONT IV Last administered on 07/08/19at 21:01; Start 07/08/19 at 22:00; Stop 07/09/19 at 21:59; Status DC Potassium Chloride/Water 100 ml @ 100 mls/hr 1X ONCE IV Last administered on 07/08/19at 14:09; Start 07/08/19 at 14:00; Stop 07/08/19 at 14:59; Status DC Benzocaine (Hurricaine One) 1 spray 1X ONCE MM Last administered on 07/08/19at 16:38; Start 07/08/19 at 14:30; Stop 07/08/19 at 14:31; Status DC Lidocaine HCl (Glydo (Lidocaine) Jelly) 1 ramu 1X ONCE MM Last administered on 07/08/19at 16:38; Start 07/08/19 at 14:30; Stop 07/08/19 at 14:31; Status DC Linezolid/Dextrose 300 ml @ 300 mls/hr Q12HR IV Last administered on 07/14/19at 21:04; Start 07/08/19 at 20:00; Stop 07/15/19 at 07:50; Status DC Acetaminophen (Tylenol) 650 mg PRN Q6HRS PRN PO MILD PAIN / TEMP; Start 07/09/19 at 03:30; Stop 07/09/19 at 03:36; Status DC Acetaminophen (Tylenol) 650 mg PRN Q6HRS PRN PEG MILD PAIN / TEMP Last administered on 08/04/19at 19:56; Start 07/09/19 at 03:36 Sodium Chloride 1,000 ml @ 1,000 mls/hr Q1H PRN IV hypotension; Start 07/09/19 at 07:50; Stop 07/09/19 at 13:49; Status DC Albumin Human 200 ml @ 200 mls/hr 1X PRN PRN IV Hypotension; Start 07/09/19 at 08:00; Stop 07/09/19 at 13:59; Status DC Sodium Chloride (Normal Saline Flush) 10 ml 1X PRN PRN IV AP catheter pack; Start 07/09/19 at 08:00; Stop 07/10/19 at 07:59; Status DC Sodium Chloride (Normal Saline Flush) 10 ml 1X PRN PRN 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; Start 07/09/19 at 08:00; Stop 07/10/19 at 07:59; Status DC Sodium Chloride 1,000 ml @ 400 mls/hr Q2H30M PRN IV PATENCY; Start 07/09/19 at 07:50; Stop 07/09/19 at 19:49; Status DC Info (PHARMACY MONITORING -- do not chart) 1 each PRN DAILY PRN MC SEE COMMENTS ; Start 07/09/19 at 08:00; Status UNV Info (PHARMACY MONITORING -- do not chart) 1 each PRN DAILY PRN MC SEE COMMENTS; Start 07/09/19 at 08:00; Stop 07/11/19 at 08:25; Status DC Sodium Chloride 90 meq/Potassium Chloride 15 meq/ Potassium Phosphate 10 mmol/ Magnesium Sulfate 10 meq/Calcium Gluconate 20 meq/ Multivitamins 10 ml/Chromium/ Copper/Manganese/ Seleni/Zn 0.5 ml/ Total Parenteral Nutrition/Amino Acids/Dextrose/ Fat Emulsion Intravenous 1,512 ml @ 63 mls/hr TPN CONT IV Last administered on 07/09/19at 20:57; Start 07/09/19 at 22:00; Stop 07/10/19 at 21:59; Status DC Sodium Chloride 90 meq/Potassium Chloride 15 meq/ Potassium Phosphate 15 mmol/ Magnesium Sulfate 10 meq/Calcium Gluconate 20 meq/ Multivitamins 10 ml/Chromium/ Copper/Manganese/ Seleni/Zn 0.5 ml/ Total Parenteral Nutrition/Amino Acids/Dextrose/ Fat Emulsion Intravenous 1,512 ml @ 63 mls/hr TPN CONT IV ; Start 07/10/19 at 22:00; Stop 07/10/19 at 14:16; Status DC Sodium Chloride 90 meq/Potassium Chloride 15 meq/ Potassium Phosphate 15 mmol/ Magnesium Sulfate 10 meq/Calcium Gluconate 20 meq/ Multivitamins 10 ml/Chromium/ Copper/Manganese/ Seleni/Zn 0.5 ml/ Total Parenteral Nutrition/Amino Acids/Dextrose/ Fat Emulsion Intravenous 1,200 ml @ 50 mls/hr TPN CONT IV ; Start 07/10/19 at 22:00; Stop 07/10/19 at 14:17; Status DC Sodium Chloride 90 meq/Potassium Chloride 15 meq/ Potassium Phosphate 10 mmol/ Magnesium Sulfate 10 meq/Calcium Gluconate 20 meq/ Multivitamins 10 ml/Chromium/ Copper/Manganese/ Seleni/Zn 0.5 ml/ Total Parenteral Nutrition/Amino Acids/Dextrose/ Fat Emulsion Intravenous 1,200 ml @ 50 mls/hr TPN CONT IV Last administered on 07/10/19at 23:29; Start 07/10/19 at 22:00; Stop 07/11/19 at 21:59; Status DC Sodium Chloride 1,000 ml @ 1,000 mls/hr Q1H PRN IV hypotension; Start 07/11/19 at 07:28; Stop 07/11/19 at 13:27; Status DC Albumin Human 200 ml @ 200 mls/hr 1X ONCE IV Last administered on 07/11/19at 08:51; Start 07/11/19 at 07:30; Stop 07/11/19 at 08:29; Status DC Diphenhydramine HCl (Benadryl) 25 mg 1X PRN PRN IV ITCHING; Start 07/11/19 at 07:30; Stop 07/12/19 at 07:29; Status DC Diphenhydramine HCl (Benadryl) 25 mg 1X PRN PRN IV ITCHING; Start 07/11/19 at 07:30; Stop 07/12/19 at 07:29; Status DC Sodium Chloride 1,000 ml @ 400 mls/hr Q2H30M PRN IV PATENCY; Start 07/11/19 at 07:28; Stop 07/11/19 at 19:27; Status DC Info (PHARMACY MONITORING -- do not chart) 1 each PRN DAILY PRN MC SEE CO MMENTS; Start 07/11/19 at 07:30; Stop 07/22/19 at 13:01; Status DC Metronidazole 100 ml @ 100 mls/hr Q6HRS IV Last administered on 07/27/19at 06:26; Start 07/11/19 at 08:30; Stop 07/27/19 at 09:58; Status DC Micafungin Sodium 100 mg/Dextrose 100 ml @ 100 mls/hr Q24H IV Last administered on 08/18/19at 08:18; Start 07/11/19 at 09:00; Stop 08/18/19 at 20:58; Status DC Propofol 0 ml @ As Directed STK-MED ONCE IV ; Start 07/11/19 at 07:53; Stop 07/11/19 at 07:53; Status DC Etomidate (Amidate) 20 mg STK-MED ONCE IV ; Start 07/11/19 at 07:53; Stop 07/11/19 at 07:54; Status DC Midazolam HCl (Versed) 5 mg STK-MED ONCE .ROUTE ; Start 07/11/19 at 07:57; Stop 07/11/19 at 07:57; Status DC Fentanyl Citrate 30 ml @ 0 mls/hr CONT PRN IV SEE PROTOCOL Last administered on 08/05/19at 06:12; Start 07/11/19 at 08:15; Stop 08/05/19 at 09:19; Status DC Artificial Tears (Artificial Tears) 1 drop PRN Q1HR PRN OU DRY EYE, 1st choice; Start 07/11/19 at 08:15; Stop 08/17/19 at 05:31; Status DC Midazolam HCl 50 mg/Sodium Chloride 50 ml @ 0 mls/hr CONT PRN IV SEE PROTOCOL Last administered on 07/14/19at 22:39; Start 07/11/19 at 08:15; Stop 07/16/19 at 15:59; Status DC Etomidate (Amidate) 8 mg 1X ONCE IV Last administered on 07/11/19at 08:33; Start 07/11/19 at 08:30; Stop 07/11/19 at 08:31; Status DC Succinylcholine Chloride (Anectine) 120 mg 1X ONCE IV Last administered on 07/11/19at 08:34; Start 07/11/19 at 08:30; Stop 07/11/19 at 08:31; Status DC Midazolam HCl (Versed) 5 mg 1X ONCE IV ; Start 07/11/19 at 08:30; Stop 07/11/19 at 08:31; Status DC Potassium Chloride 15 meq/ Bicarbonate Dialysis Soln w/ out KCl 5,007.5 ml @ 1,000 mls/ hr Q5H1M IV Last administered on 07/12/19at 11:11; Start 07/11/19 at 12:00; Stop 07/12/19 at 11:15; Status DC Potassium Chloride 15 meq/ Bicarbonate Dialysis Soln w/ out KCl 5,007.5 ml @ 1,000 mls/ hr Q5H1M IV Last administered on 07/12/19at 11:12; Start 07/11/19 at 12:00; Stop 07/12/19 at 11:17; Status DC Potassium Chloride 15 meq/ Bicarbonate Dialysis Soln w/ out KCl 5,007.5 ml @ 1,000 mls/ hr Q5H1M IV Last administered on 07/12/19at 11:11; Start 07/11/19 at 12:00; Stop 07/12/19 at 11:19; Status DC Sodium Chloride 90 meq/Potassium Chloride 15 meq/ Potassium Phosphate 10 mmol/ Magnesium Sulfate 10 meq/Calcium Gluconate 20 meq/ Multivitamins 10 ml/Chromium/ Copper/Manganese/ Seleni/Zn 0.5 ml/ Total Parenteral Nutrition/Amino Acids/Dextrose/ Fat Emulsion Intravenous 1,400 ml @ 58.333 mls/ hr TPN CONT IV Last administered on 07/11/19at 21:42; Start 07/11/19 at 22:00; Stop 07/12/19 at 21:59; Status DC Heparin Sodium (Porcine) (Heparin Sodium) 5,000 unit Q8HRS SQ Last administered on 07/16/19at 05:55; Start 07/11/19 at 15:00; Stop 07/16/19 at 13:28; Status DC Meropenem 500 mg/ Sodium Chloride 50 ml @ 100 mls/hr Q6HRS IV Last administered on 07/13/19at 06:00; Start 07/12/19 at 09:00; Stop 07/13/19 at 07:29; Status DC Potassium Phosphate 20 mmol/ Sodium Chloride 106.6667 ml @ 51.667 m... 1X ONCE IV Last administered on 07/12/19at 11:22; Start 07/12/19 at 10:15; Stop 07/12/19 at 12:18; Status DC Acetaminophen (Tylenol Supp) 650 mg PRN Q6HRS PRN DC MILD PAIN / TEMP > 100.3'F Last administered on 08/23/19at 09:12; Start 07/12/19 at 10:30 Potassium Chloride/Water 100 ml @ 100 mls/hr Q1H IV Last administered on 07/12/19at 12:12; Start 07/12/19 at 11:00; Stop 07/12/19 at 12:59; Status DC Potassium Chloride 20 meq/ Bicarbonate Dialysis Soln w/ out KCl 5,010 ml @ 1,000 mls/hr Q5H1M IV Last administered on 07/13/19at 08:48; Start 07/12/19 at 12:00; Stop 07/13/19 at 13:03; Status DC Potassium Chloride 20 meq/ Bicarbonate Dialysis Soln w/ out KCl 5,010 ml @ 1,000 mls/hr Q5H1M IV Last administered on 07/17/19at 14:52; Start 07/12/19 at 11:30; Stop 07/17/19 at 19:59; Status DC Potassium Chloride 20 meq/ Bicarbonate Dialysis Soln w/ out KCl 5,010 ml @ 1,0 00 mls/hr Q5H1M IV Last administered on 07/17/19at 14:53; Start 07/12/19 at 11:30; Stop 07/17/19 at 19:59; Status DC Sodium Chloride 90 meq/Potassium Chloride 15 meq/ Potassium Phosphate 15 mmol/ Magnesium Sulfate 10 meq/Calcium Gluconate 15 meq/ Multivitamins 10 ml/Chromium/ Copper/Manganese/ Seleni/Zn 0.5 ml/ Total Parenteral Nutrition/Amino Acids/Dextrose/ Fat Emulsion Intravenous 1,400 ml @ 58.333 mls/ hr TPN CONT IV Last administered on 07/12/19at 22:17; Start 07/12/19 at 22:00; Stop 07/13/19 at 21:59; Status DC Cefepime HCl (Maxipime) 2 gm Q12HR IVP Last administered on 07/26/19at 20:56; Start 07/13/19 at 09:00; Stop 07/27/19 at 09:58; Status DC Daptomycin 500 mg/ Sodium Chloride 50 ml @ 100 mls/hr Q48H IV Last administered on 07/29/19at 09:57; Start 07/13/19 at 08:30; Stop 07/29/19 at 10:07; Status DC Lidocaine HCl (Buffered Lidocaine 1%) 3 ml 1X ONCE INJ Last administered on 07/13/19at 10:27; Start 07/13/19 at 10:30; Stop 07/13/19 at 10:31; Status DC Potassium Phosphate 20 mmol/ Sodium Chloride 106.6667 ml @ 51.667 m... 1X ONCE IV Last administered on 07/13/19at 12:51; Start 07/13/19 at 13:00; Stop 07/13/19 at 15:03; Status DC Sodium Chloride 90 meq/Potassium Chloride 15 meq/ Potassium Phosphate 18 mmol/ Magnesium Sulfate 8 meq/Calcium Gluconate 15 meq/ Multivitamins 10 ml/Chromium/ Copper/Manganese/ Seleni/Zn 0.5 ml/ Total Parenteral Nutrition/Amino Acids/Dextrose/ Fat Emulsion Intravenous 1,400 ml @ 58.333 mls/ hr TPN CONT IV Last administered on 07/13/19at 22:16; Start 07/13/19 at 22:00; Stop 07/14/19 at 21:59; Status DC Potassium Chloride 20 meq/ Bicarbonate Dialysis Soln w/ out KCl 5,010 ml @ 1,000 mls/hr Q5H1M IV Last administered on 07/17/19at 14:54; Start 07/13/19 at 16:00; Stop 07/17/19 at 19:59; Status DC Multi-Ingred Cream/Lotion/Oil/ Oint (Artificial Tears Eye Ointment) 1 ramu PRN Q1HR PRN OU DRY EYE, 2nd choice Last administered on 08/01/19at 08:19; Start 07/13/19 at 17:30 Sodium Chloride 90 meq/Potassium Chloride 15 meq/ Potassium Phosphate 18 mmol/ Magnesium Sulfate 8 meq/Calcium Gluconate 15 meq/ Multivitamins 10 ml/Chromium/ Copper/Manganese/ Seleni/Zn 0.5 ml/ Total Parenteral Nutrition/Amino Acids/D extrose/ Fat Emulsion Intravenous 1,400 ml @ 58.333 mls/ hr TPN CONT IV Last administered on 07/14/19at 22:00; Start 07/14/19 at 22:00; Stop 07/15/19 at 21:59; Status DC Albumin Human 500 ml @ 125 mls/hr 1X ONCE IV ; Start 07/14/19 at 14:15; Stop 07/14/19 at 18:14; Status DC Sodium Chloride 90 meq/Potassium Chloride 15 meq/ Potassium Phosphate 18 mmol/ Magnesium Sulfate 8 meq/Calcium Gluconate 15 meq/ Multivitamins 10 ml/Chromium/ Copper/Manganese/ Seleni/Zn 0.5 ml/ Insulin Human Regular 10 unit/ Total Parenteral Nutrition/Amino Acids/Dextrose/ Fat Emulsion Intravenous 1,400 ml @ 58.333 mls/ hr TPN CONT IV Last administered on 07/15/19at 21:43; Start 07/15/19 at 22:00; Stop 07/16/19 at 21:59; Status DC Lidocaine HCl (Buffered Lidocaine 1%) 3 ml STK-MED ONCE .ROUTE ; Start 07/13/19 at 10:00; Stop 07/15/19 at 13:57; Status DC Midazolam HCl 100 mg/Sodium Chloride 100 ml @ 7 mls/hr CONT PRN IV SEE PROTOCOL Last administered on 07/27/19at 15:35; Start 07/16/19 at 16:00 Sodium Chloride 90 meq/Potassium Chloride 15 meq/ Potassium Phosphate 18 mmol/ Magnesium Sulfate 8 meq/Calcium Gluconate 15 meq/ Multivitamins 10 ml/Chromium/ Copper/Manganese/ Seleni/Zn 0.5 ml/ Insulin Human Regular 15 unit/ Total Parenteral Nutrition/Amino Acids/Dextrose/ Fat Emulsion Intravenous 1,400 ml @ 58.333 mls/ hr TPN CONT IV Last administered on 07/16/19at 20:34; Start 07/16/19 at 22:00; Stop 07/17/19 at 21:59; Status DC Info (Icu Electrolyte Protocol) 1 ea CONT PRN PRN MC PER PROTOCOL; Start 07/17/19 at 13:15 Sodium Chloride 90 meq/Potassium Chloride 15 meq/ Potassium Phosphate 18 mmol/ Magnesium Sulfate 8 meq/Calcium Gluconate 15 meq/ Multivitamins 10 ml/Chromium/ Copper/Manganese/ Seleni/Zn 0.5 ml/ Insulin Human Regular 15 unit/ Total Parenteral Nutrition/Amino Acids/Dextrose/ Fat Emulsion Intravenous 1,400 ml @ 58.333 mls/ hr TPN CONT IV Last administered on 07/17/19at 22:05; Start 07/17/19 at 22:00; Stop 07/18/19 at 21:59; Status DC Potassium Chloride 15 meq/ Bicarbonate Dialysis Soln w/ out KCl 5,007.5 ml @ 1,000 mls/ hr Q5H1M IV Last administered on 07/20/19at 18:14; Start 07/17/19 at 20:00; Stop 07/21/19 at 13:08; Status DC Potassium Chloride 15 meq/ Bicarbonate Dialysis Soln w/ out KCl 5,007.5 ml @ 1,000 mls/ hr Q5H1M IV Last administered on 07/20/19at 18:14; Start 07/17/19 at 20:00; Stop 07/21/19 at 13:08; Status DC Potassium Chloride 15 meq/ Bicarbonate Dialysis Soln w/ out KCl 5,007.5 ml @ 1,000 mls/ hr Q5H1M IV Last administered on 07/20/19at 18:14; Start 07/17/19 at 20:00; Stop 07/21/19 at 13:08; Status DC Iohexol (Omnipaque 240 Mg/ml) 30 ml 1X ONCE PO Last administered on 07/18/19at 11:30; Start 07/18/19 at 11:30; Stop 07/18/19 at 11:33; Status DC Info (CONTRAST GIVEN -- Rx MONITORING) 1 each PRN DAILY PRN MC SEE COMMENTS; Start 07/18/19 at 11:45; Stop 07/20/19 at 11:44; Status DC Sodium Chloride 90 meq/Potassium Chloride 15 meq/ Potassium Phosphate 18 mmol/ Magnesium Sulfate 8 meq/Calcium Gluconate 15 meq/ Multivitamins 10 ml/Chromium/ Copper/Manganese/ Seleni/Zn 0.5 ml/ Insulin Human Regular 15 unit/ Total Pare nteral Nutrition/Amino Acids/Dextrose/ Fat Emulsion Intravenous 1,400 ml @ 58.333 mls/ hr TPN CONT IV Last administered on 07/18/19at 21:47; Start 07/18/19 at 22:00; Stop 07/19/19 at 21:59; Status DC Sodium Chloride 90 meq/Potassium Chloride 15 meq/ Potassium Phosphate 18 mmol/ Magnesium Sulfate 8 meq/Calcium Gluconate 15 meq/ Multivitamins 10 ml/Chromium/ Copper/Manganese/ Seleni/Zn 0.5 ml/ Insulin Human Regular 20 unit/ Total Parenteral Nutrition/Amino Acids/Dextrose/ Fat Emulsion Intravenous 1,400 ml @ 58.333 mls/ hr TPN CONT IV Last administered on 07/19/19at 21:36; Start 07/19/19 at 22:00; Stop 07/20/19 at 21:59; Status DC Alteplase, Recombinant (Cathflo For Central Catheter Clearance) 1 mg 1X ONCE INT CAT Last administered on 07/19/19at 20:03; Start 07/19/19 at 19:30; Stop 07/19/19 at 19:46; Status DC Alteplase, Recombinant (Cathflo For Central Catheter Clearance) 1 mg 1X ONCE INT CAT Last administered on 07/19/19at 22:05; Start 07/19/19 at 22:00; Stop 07/19/19 at 22:01; Status DC Sodium Chloride 90 meq/Potassium Chloride 15 meq/ Potassium Phosphate 18 mmol/ Magnesium Sulfate 8 meq/Calcium Gluconate 15 meq/ Multivitamins 10 ml/Chromium/ Copper/Manganese/ Seleni/Zn 0.5 ml/ Insulin Human Regular 20 unit/ Total Parenteral Nutrition/Amino Acids/Dextrose/ Fat Emulsion Intravenous 1,400 ml @ 58.333 mls/ hr TPN CONT IV Last administered on 07/20/19at 21:30; Start 07/20/19 at 22:00; Stop 07/21/19 at 21:59; Status DC Dexmedetomidine HCl 400 mcg/ Sodium Chloride 100 ml @ 0 mls/hr CONT PRN IV ANXIETY / AGITATION Last administered on 08/26/19at 11:32; Start 07/21/19 at 08:15 Sodium Chloride 500 ml @ 500 mls/hr 1X PRN PRN IV ELEVATED BP, SEE COMMENTS; Start 07/21/19 at 08:15 Atropine Sulfate (ATROPINE 0.5mg SYRINGE) 0.5 mg PRN Q5MIN PRN IV SEE COMMENTS; Start 07/21/19 at 08:15 Furosemide (Lasix) 20 mg 1X ONCE IVP Last administered on 07/21/19at 08:19; Start 07/21/19 at 08:15; Stop 07/21/19 at 08:16; Status DC Lidocaine HCl (Buffered Lidocaine 1%) 3 ml STK-MED ONCE .ROUTE ; Start 07/21/19 at 08:39; Stop 07/21/19 at 08:39; Status DC Lidocaine HCl (Buffered Lidocaine 1%) 6 ml 1X ONCE INJ Last administered on 07/21/19at 09:05; Start 07/21/19 at 09:00; Stop 07/21/19 at 09:06; Status DC Sodium Chloride 90 meq/Potassium Chloride 15 meq/ Potassium Phosphate 18 mmol/ Magnesium Sulfate 8 meq/Calcium Gluconate 15 meq/ Multivitamins 10 ml/Chromium/ Copper/Manganese/ Seleni/Zn 0.5 ml/ Insulin Human Regular 20 unit/ Total Parenteral Nutrition/Amino Acids/Dextrose/ Fat Emulsion Intravenous 1,400 ml @ 58.333 mls/ hr TPN CONT IV Last administered on 07/21/19at 22:45; Start 07/21/19 at 22:00; Stop 07/22/19 at 21:59; Status DC Sodium Chloride 1,000 ml @ 1,000 mls/hr Q1H PRN IV hypotension; Start 07/22/19 at 07:30; Stop 07/22/19 at 13:29; Status DC Albumin Human 200 ml @ 200 mls/hr 1X PRN PRN IV Hypotension Last administered on 07/22/19at 09:36; Start 07/22/19 at 07:30; Stop 07/22/19 at 13:29; Status DC Sodium Chloride (Normal Saline Flush) 10 ml 1X PRN PRN IV AP catheter pack; Start 07/22/19 at 07:30; Stop 07/22/19 at 21:29; Status DC Sodium Chloride (Normal Saline Flush) 10 ml 1X PRN PRN 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; Start 07/22/19 at 07:30; Stop 07/23/19 at 07:29; Status DC Sodium Chloride 1,000 ml @ 400 mls/hr Q2H30M PRN IV PATENCY; Start 07/22/19 at 07:30; Stop 07/22/19 at 19:29; Status DC Info (PHARMACY MONITORING -- do not chart) 1 each PRN DAILY PRN MC SEE COMMENTS; Start 07/22/19 at 07:30; Stop 07/22/19 at 13:02; Status DC Info (PHARMACY MONITORING -- do not chart) 1 each PRN DAILY PRN MC SEE COMMENTS; Start 07/22/19 at 07:30; Stop 07/24/19 at 12:45; Status DC Sodium Chloride 90 meq/Potassium Chloride 15 meq/ Potassium Phosphate 10 mmol/ Magnesium Sulfate 8 meq/Calcium Gluconate 15 meq/ Multivitamins 10 ml/Chromium/ Copper/Manganese/ Seleni/Zn 0.5 ml/ Insulin Human Regular 25 unit/ Total Pare nteral Nutrition/Amino Acids/Dextrose/ Fat Emulsion Intravenous 1,400 ml @ 58.333 mls/ hr TPN CONT IV Last administered on 07/22/19at 22:19; Start 07/22/19 at 22:00; Stop 07/23/19 at 21:59; Status DC Heparin Sodium (Porcine) (Heparin Sodium) 5,000 unit Q12HR SQ Last administered on 08/14/19at 08:59; Start 07/22/19 at 21:00; Stop 08/14/19 at 10:05; Status DC Ondansetron HCl (Zofran) 4 mg PRN Q6HRS PRN IV NAUSEA/VOMITING; Start 07/25/19 at 07:00; Stop 07/26/19 at 06:59; Status DC Fentanyl Citrate (Fentanyl 2ml Vial) 25 mcg PRN Q5MIN PRN IV MILD PAIN 1-3; Start 07/25/19 at 07:00; Stop 07/26/19 at 06:59; Status DC Fentanyl Citrate (Fentanyl 2ml Vial) 50 mcg PRN Q5MIN PRN IV MODERATE TO SEVERE PAIN; Start 07/25/19 at 07:00; Stop 07/26/19 at 06:59; Status DC Ringer's Solution 1,000 ml @ 30 mls/hr Q24H IV ; Start 07/25/19 at 07:00; Stop 07/25/19 at 18:59; Status DC Lidocaine HCl (Xylocaine-Mpf 1% 2ml Vial) 2 ml PRN 1X PRN ID PRIOR TO IV START; Start 07/25/19 at 07:00; Stop 07/26/19 at 06:59; Status DC Prochlorperazine Edisylate (Compazine) 5 mg PACU PRN PRN IV NAUSEA, MRX1; Start 07/25/19 at 07:00; Stop 07/26/19 at 06:59; Status DC Sodium Chloride 1,000 ml @ 1,000 mls/hr Q1H PRN IV hypotension; Start 07/23/19 at 09:10; Stop 07/23/19 at 15:09; Status DC Albumin Human 200 ml @ 200 mls/hr 1X PRN PRN IV Hypotension Last administered on 07/23/19at 10:10; Start 07/23/19 at 09:15; Stop 07/23/19 at 15:14; Status DC Sodium Chloride 1,000 ml @ 400 mls/hr Q2H30M PRN IV PATENCY; Start 07/23/19 at 09:10; Stop 07/23/19 at 21:09; Status DC Info (PHARMACY MONITORING -- do not chart) 1 each PRN DAILY PRN MC SEE COMMENTS; Start 07/23/19 at 09:15; Stop 07/24/19 at 12:45; Status DC Info (PHARMACY MONITORING -- do not chart) 1 each PRN DAILY PRN MC SEE COMMENTS; Start 07/23/19 at 09:15; Stop 07/24/19 at 12:45; Status DC Sodium Chloride 90 meq/Potassium Chloride 15 meq/ Potassium Phosphate 10 mmol/ Magnesium Sulfate 8 meq/Calcium Gluconate 15 meq/ Multivitamins 10 ml/Chromium/ Copper/Manganese/ Seleni/Zn 0.5 ml/ Insulin Human Regular 25 unit/ Total Parenteral Nutrition/Amino Acids/Dextrose/ Fat Emulsion Intravenous 1,400 ml @ 58.333 mls/ hr TPN CONT IV Last administered on 07/23/19at 22:10; Start 07/23/19 at 22:00; Stop 07/24/19 at 21:59; Status DC Magnesium Sulfate 50 ml @ 25 mls/hr PRN DAILY PRN IV for Mag < 1.7 on am labs Last administered on 08/08/19at 17:27; Start 07/24/19 at 09:15 Sodium Chloride 90 meq/Potassium Chloride 15 meq/ Potassium Phosphate 10 mmol/ Magnesium Sulfate 8 meq/Calcium Gluconate 15 meq/ Multivitamins 10 ml/Chromium/ Copper/Manganese/ Seleni/Zn 0.5 ml/ Insulin Human Regular 25 unit/ Total Parenteral Nutrition/Amino Acids/Dextrose/ Fat Emulsion Intravenous 1,400 ml @ 58.333 mls/ hr TPN CONT IV Last administered on 07/24/19at 21:20; Start 07/24/19 at 22:00; Stop 07/25/19 at 21:59; Status DC Sodium Chloride 1,000 ml @ 1,000 mls/hr Q1H PRN IV hypotension; Start 07/24/19 at 12:23; Stop 07/24/19 at 18:22; Status DC Albumin Human 200 ml @ 200 mls/hr 1X ONCE IV Last administered on 07/24/19at 13:34; Start 07/24/19 at 12:30; Stop 07/24/19 at 13:29; Status DC Diphenhydramine HCl (Benadryl) 25 mg 1X PRN PRN IV ITCHING; Start 07/24/19 at 12:30; Stop 07/25/19 at 12:29; Status DC Diphenhydramine HCl (Benadryl) 25 mg 1X PRN PRN IV ITCHING; Start 07/24/19 at 12:30; Stop 07/25/19 at 12:29; Status DC Info (PHARMACY MONITORING -- do not chart) 1 each PRN DAILY PRN MC SEE COMMENTS; Start 07/24/19 at 12:30; Status Cancel Bupivacaine HCl/ Epinephrine Bitart (Sensorcain-Epi 0.5%-1:[id number] Mpf) 30 ml STK-MED ONCE .ROUTE Last administered on 07/25/19at 11:44; Start 07/25/19 at 11:00; Stop 07/25/19 at 11:01; Status DC Cellulose (Surgicel Fibrillar 1x2) 1 each STK-MED ONCE .ROUTE ; Start 07/25/19 at 11:00; Stop 07/25/19 at 11:01; Status DC Sodium Chloride 90 meq/Potassium Chloride 15 meq/ Potassium Phosphate 10 mmol/ Magnesium Sulfate 12 meq/Calcium Gluconate 15 meq/ Multivitamins 10 ml/Chromium/ Copper/Manganese/ Seleni/Zn 0.5 ml/ Insulin Human Regular 25 unit/ Total Parenteral Nutrition/Amino Acids/Dextrose/ Fat Emulsion Intravenous 1,400 ml @ 58.333 mls/ hr TPN CONT IV Last administered on 07/25/19at 22:24; Start 07/25/19 at 22:00; Stop 07/26/19 at 21:59; Status DC Propofol 20 ml @ As Directed STK-MED ONCE IV ; Start 07/25/19 at 11:07; Stop 07/25/19 at 11:07; Status DC Cellulose (Surgicel Hemostat 4x8) 1 each STK-MED ONCE .ROUTE Last administered on 07/25/19at 11:44; Start 07/25/19 at 11:55; Stop 07/25/19 at 11:56; Status DC Sevoflurane (Ultane) 60 ml STK-MED ONCE IH ; Start 07/25/19 at 12:46; Stop 07/25/19 at 12:46; Status DC Sodium Chloride 1,000 ml @ 1,000 mls/hr Q1H PRN IV hypotension; Start 07/25/19 at 13:51; Stop 07/25/19 at 19:50; Status DC Albumin Human 200 ml @ 200 mls/hr 1X PRN PRN IV Hypotension Last administered on 07/25/19at 14:51; Start 07/25/19 at 14:00; Stop 07/25/19 at 19:59; Status DC Diphenhydramine HCl (Benadryl) 25 mg 1X PRN PRN IV ITCHING; Start 07/25/19 at 14:00; Stop 07/26/19 at 13:59; Status DC Diphenhydramine HCl (Benadryl) 25 mg 1X PRN PRN IV ITCHING; Start 07/25/19 at 14:00; Stop 07/26/19 at 13:59; Status DC Sodium Chloride 1,000 ml @ 400 mls/hr Q2H30M PRN IV PATENCY; Start 07/25/19 at 13:51; Stop 07/26/19 at 01:50; Status DC Info (PHARMACY MONITORING -- do not chart) 1 each PRN DAILY PRN MC SEE COMMENTS; Start 07/25/19 at 14:00; Stop 07/28/19 at 08:16; Status DC Heparin Sodium (Porcine) (Hep Lock Adult) 500 unit STK-MED ONCE IVP ; Start 07/26/19 at 09:29; Stop 07/26/19 at 09:30; Status DC Sodium Chloride 1,000 ml @ 1,000 mls/hr Q1H PRN IV hypotension; Start 07/26/19 at 10:43; Stop 07/26/19 at 16:42; Status DC Sodium Chloride 1,000 ml @ 400 mls/hr Q2H30M PRN IV PATENCY; Start 07/26/19 at 10:43; Stop 07/26/19 at 22:42; Status DC Info (PHARMACY MONITORING -- do not chart) 1 each PRN DAILY PRN MC SEE COMMENTS; Start 07/26/19 at 10:45; Status UNV Info (PHARMACY MONITORING -- do not chart) 1 each PRN DAILY PRN MC SEE COMMENTS; Start 07/26/19 at 10:45; Status UNV Sodium Chloride 90 meq/Potassium Chloride 15 meq/ Magnesium Sulfate 12 meq/Calcium Gluconate 15 meq/ Multivitamins 10 ml/Chromium/ Copper/Manganese/ Seleni/Zn 0.5 ml/ Insulin Human Regular 25 unit/ Total Parenteral Nutrition/Amino Acids/Dextrose/ Fat Emulsion Intravenous 1,400 ml @ 58.333 mls/ hr TPN CONT IV Last administered on 07/26/19at 22:13; Start 07/26/19 at 22:00; Stop 07/27/19 at 21:59; Status DC Sodium Chloride 1,000 ml @ 1,000 mls/hr Q1H PRN IV hypotension; Start 07/27/19 at 07:50; Stop 07/27/19 at 13:49; Status DC Albumin Human 200 ml @ 200 mls/hr 1X ONCE IV ; Start 07/27/19 at 08:00; Stop 07/27/19 at 08:53; Status DC Diphenhydramine HCl (Benadryl) 25 mg 1X PRN PRN IV ITCHING; Start 07/27/19 at 08:00; Stop 07/28/19 at 07:59; Status DC Diphenhydramine HCl (Benadryl) 25 mg 1X PRN PRN IV ITCHING; Start 07/27/19 at 08:00; Stop 07/28/19 at 07:59; Status DC Info (PHARMACY MONITORING -- do not chart) 1 each PRN DAILY PRN MC SEE CO MMENTS; Start 07/27/19 at 08:00; Stop 07/28/19 at 08:16; Status DC Albumin Human 50 ml @ 50 mls/hr 1X ONCE IV ; Start 07/27/19 at 08:53; Stop 07/27/19 at 08:56; Status DC Albumin Human 200 ml @ 50 mls/hr PRN 1X PRN IV HYPOTENSION Last administered on 08/02/19at 11:54; Start 07/27/19 at 09:00 Meropenem 500 mg/ Sodium Chloride 50 ml @ 100 mls/hr Q12H IV Last administered on 08/16/19at 10:45; Start 07/27/19 at 10:00; Stop 08/16/19 at 12:37; Status DC Sodium Chloride 90 meq/Magnesium Sulfate 12 meq/ Calcium Gluconate 15 meq/ Multivitamins 10 ml/Chromium/ Copper/Manganese/ Seleni/Zn 0.5 ml/ Insulin Human Regular 25 unit/ Total Parenteral Nutrition/Amino Acids/Dextrose/ Fat Emulsion Intravenous 1,400 ml @ 58.333 mls/ hr TPN CONT IV Last administered on 07/27/19at 21:41; Start 07/27/19 at 22:00; Stop 07/28/19 at 21:59; Status DC Sodium Chloride 1,000 ml @ 1,000 mls/hr Q1H PRN IV hypotension; Start 07/28/19 at 07:58; Stop 07/28/19 at 13:57; Status DC Albumin Human 200 ml @ 200 mls/hr 1X PRN PRN IV Hypotension Last administered on 07/28/19at 09:30; Start 07/28/19 at 08:00; Stop 07/28/19 at 13:59; Status DC Sodium Chloride 1,000 ml @ 400 mls/hr Q2H30M PRN IV PATENCY; Start 07/28/19 at 07:58; Stop 07/28/19 at 19:57; Status DC Info (PHARMACY MONITORING -- do not chart) 1 each PRN DAILY PRN MC SEE COMMENTS; Start 07/28/19 at 08:00; Status Cancel Info (PHARMACY MONITORING -- do not chart) 1 each PRN DAILY PRN MC SEE COMMENTS; Start 07/28/19 at 08:15; Status UNV Sodium Chloride 90 meq/Potassium Phosphate 5 mmol/ Magnesium Sulfate 12 meq/Calcium Gluconate 15 meq/ Multivitamins 10 ml/Chromium/ Copper/Manganese/ Seleni/Zn 0.5 ml/ Insulin Human Regular 30 unit/ Total Parenteral Nutrition/Amino Acids/Dextrose/ Fat Emulsion Intravenous 1,400 ml @ 58.333 mls/ hr TPN CONT IV Last administered on 07/28/19at 22:08; Start 07/28/19 at 22:00; Stop 07/29/19 at 21:59; Status DC Linezolid/Dextrose 300 ml @ 300 mls/hr Q12HR IV Last administered on 08/08/19at 20:40; Start 07/29/19 at 11:00; Stop 08/09/19 at 08:10; Status DC Sodium Chloride 90 meq/Potassium Phosphate 15 mmol/ Magnesium Sulfate 12 meq/Calcium Gluconate 15 meq/ Multivitamins 10 ml/Chromium/ Copper/Manganese/ Seleni/Zn 0.5 ml/ Insulin Human Regular 30 unit/ Total Parenteral Nutrition/Amino Acids/Dextrose/ Fat Emulsion Intravenous 1,400 ml @ 58.333 mls/ hr TPN CONT IV Last administered on 07/29/19at 21:49; Start 07/29/19 at 22:00; Stop 07/30/19 at 21:59; Status DC Sodium Chloride 90 meq/Potassium Phosphate 15 mmol/ Magnesium Sulfate 12 meq/Calcium Gluconate 15 meq/ Multivitamins 10 ml/Chromium/ Copper/Manganese/ Seleni/Zn 0.5 ml/ Insulin Human Regular 40 unit/ Total Parenteral Nutrition/Amino Acids/Dextrose/ Fat Emulsion Intravenous 1,400 ml @ 58.333 mls/ hr TPN CONT IV Last administered on 07/30/19at 21:21; Start 07/30/19 at 22:00; Stop 07/31/19 at 21:59; Status DC Sodium Chloride 1,000 ml @ 1,000 mls/hr Q1H PRN IV hypotension; Start 07/30/19 at 13:26; Stop 07/30/19 at 19:25; Status DC Albumin Human 200 ml @ 200 mls/hr 1X PRN PRN IV Hypotension Last administered on 07/30/19at 15:00; Start 07/30/19 at 13:30; Stop 07/30/19 at 19:29; Status DC Sodium Chloride (Normal Saline Flush) 10 ml 1X PRN PRN IV AP catheter pack; Start 07/30/19 at 13:30; Stop 07/31/19 at 13:29; Status DC Sodium Chloride (Normal Saline Flush) 10 ml 1X PRN PRN 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; Start 07/30/19 at 13:30; Stop 07/31/19 at 13:29; Status DC Sodium Chloride 1,000 ml @ 400 mls/hr Q2H30M PRN IV PATENCY; Start 07/30/19 at 13:26; Stop 07/31/19 at 01:25; Status DC Info (PHARMACY MONITORING -- do not chart) 1 each PRN DAILY PRN MC SEE COMMENTS; Start 07/30/19 at 13:30; Stop 07/30/19 at 13:33; Status DC Info (PHARMACY MONITORING -- do not chart) 1 each PRN DAILY PRN MC SEE COMMENTS; Start 07/30/19 at 13:30; Stop 07/30/19 at 13:34; Status DC Sodium Chloride 90 meq/Potassium Phosphate 19 mmol/ Magnesium Sulfate 12 meq/Calcium Gluconate 15 meq/ Multivitamins 10 ml/Chromium/ Copper/Manganese/ Seleni/Zn 0.5 ml/ Insulin Human Regular 40 unit/ Total Parenteral Nutrition/Amino Acids/Dextrose/ Fat Emulsion Intravenous 1,400 ml @ 58.333 mls/ hr TPN CONT IV Last administered on 07/31/19at 21:54; Start 07/31/19 at 22:00; Stop 08/01/19 at 21:59; Status DC Sodium Chloride 1,000 ml @ 1,000 mls/hr Q1H PRN IV hypotension; Start 08/01/19 at 09:35; Stop 08/01/19 at 15:34; Status DC Albumin Human 200 ml @ 200 mls/hr 1X PRN PRN IV Hypotension; Start 08/01/19 at 09:45; Stop 08/01/19 at 15:44; Status DC Diphenhydramine HCl (Benadryl) 25 mg 1X PRN PRN IV ITCHING; Start 08/01/19 at 09:45; Stop 08/02/19 at 09:44; Status DC Diphenhydramine HCl (Benadryl) 25 mg 1X PRN PRN IV ITCHING; Start 08/01/19 at 09:45; Stop 08/02/19 at 09:44; Status DC Sodium Chloride 1,000 ml @ 400 mls/hr Q2H30M PRN IV PATENCY; Start 08/01/19 at 09:35; Stop 08/01/19 at 21:34; Status DC Info (PHARMACY MONITORING -- do not chart) 1 each PRN DAILY PRN MC SEE COMMENTS; Start 08/01/19 at 09:45; Status Cancel Sodium Chloride 100 meq/Potassium Phosphate 19 mmol/ Magnesium Sulfate 12 meq/Calcium Gluconate 15 meq/ Multivitamins 10 ml/Chromium/ Copper/Manganese/ Seleni/Zn 0.5 ml/ Insulin Human Regular 40 unit/ Potassium Chloride 20 meq/ Total Parenteral Nutrition/Amino Acids/Dextrose/ Fat Emulsion Intravenous 1,400 ml @ 58.333 mls/ hr TPN CONT IV Last administered on 08/01/19at 22:02; Start 08/01/19 at 22:00; Stop 08/02/19 at 21:59; Status DC Furosemide (Lasix) 40 mg 1X ONCE IVP Last administered on 08/01/19at 14:39; Start 08/01/19 at 14:30; Stop 08/01/19 at 14:31; Status DC Metronidazole 100 ml @ 100 mls/hr Q8HRS IV Last administered on 08/09/19at 06:04; Start 08/02/19 at 10:00; Stop 08/09/19 at 08:10; Status DC Sodium Chloride 1,000 ml @ 1,000 mls/hr Q1H PRN IV hypotension; Start 08/02/19 at 08:00; Stop 08/02/19 at 13:59; Status DC Albumin Human 200 ml @ 200 mls/hr 1X PRN PRN IV Hypotension; Start 08/02/19 at 08:00; Stop 08/02/19 at 13:59; Status DC Sodium Chloride 1,000 ml @ 400 mls/hr Q2H30M PRN IV PATENCY; Start 08/02/19 at 08:00; Stop 08/02/19 at 19:59; Status DC Info (PHARMACY MONITORING -- do not chart) 1 each PRN DAILY PRN MC SEE COMMENTS; Start 08/02/19 at 11:30; Status UNV Info (PHARMACY MONITORING -- do not chart) 1 each PRN DAILY PRN MC SEE COMMENTS; Start 08/02/19 at 11:30; Stop 08/04/19 at 12:13; Status DC Sodium Chloride 100 meq/Potassium Phosphate 19 mmol/ Magnesium Sulfate 12 meq/C alcium Gluconate 15 meq/ Multivitamins 10 ml/Chromium/ Copper/Manganese/ Seleni/Zn 0.5 ml/ Insulin Human Regular 40 unit/ Potassium Chloride 20 meq/ Total Parenteral Nutrition/Amino Acids/Dextrose/ Fat Emulsion Intravenous 1,400 ml @ 58.333 mls/ hr TPN CONT IV Last administered on 08/02/19at 21:52; Start 08/02/19 at 22:00; Stop 08/03/19 at 21:59; Status DC Sodium Chloride (Normal Saline Flush) 10 ml QSHIFT PRN IV AFTER MEDS AND BLOOD DRAWS; Start 08/02/19 at 15:00 Sodium Chloride (Normal Saline Flush) 10 ml PRN Q5MIN PRN IV AFTER MEDS AND BLOOD DRAWS; Start 08/02/19 at 15:00 Sodium Chloride (Normal Saline Flush) 20 ml PRN Q5MIN PRN IV AFTER MEDS AND BLOOD DRAWS; Start 08/02/19 at 15:00 Sodium Chloride 100 meq/Potassium Phosphate 19 mmol/ Magnesium Sulfate 12 meq/Calcium Gluconate 15 meq/ Multivitamins 10 ml/Chromium/ Copper/Manganese/ Seleni/Zn 0.5 ml/ Insulin Human Regular 40 unit/ Potassium Chloride 20 meq/ Total Parenteral Nutrition/Amino Acids/Dextrose/ Fat Emulsion Intravenous 1,400 ml @ 58.333 mls/ hr TPN CONT IV Last administered on 08/03/19at 21:20; Start 08/03/19 at 22:00; Stop 08/04/19 at 21:59; Status DC Lidocaine HCl (Buffered Lidocaine 1%) 3 ml STK-MED ONCE .ROUTE ; Start 08/03/19 at 13:16; Stop 08/03/19 at 13:16; Status DC Lidocaine HCl (Buffered Lidocaine 1%) 6 ml 1X ONCE INJ Last administered on 08/03/19at 13:45; Start 08/03/19 at 13:30; Stop 08/03/19 at 13:31; Status DC Albumin Human 100 ml @ 100 mls/hr 1X ONCE IV Last administered on 08/03/19at 15:41; Start 08/03/19 at 15:00; Stop 08/03/19 at 15:59; Status DC Albumin Human 50 ml @ 50 mls/hr 1X ONCE IV Last administered on 08/03/19at 15:00; Start 08/03/19 at 15:00; Stop 08/03/19 at 15:59; Status DC Info (PHARMACY MONITORING -- do not chart) 1 each PRN DAILY PRN MC SEE COMMENTS; Start 08/04/19 at 11:30; Status Cancel Info (PHARMACY MONITORING -- do not chart) 1 each PRN DAILY PRN MC SEE COMMENTS; Start 08/04/19 at 11:30; Status UNV Sodium Chloride 100 meq/Potassium Phosphate 10 mmol/ Magnesium Sulfate 12 meq/Calcium Gluconate 15 meq/ Multivitamins 10 ml/Chromium/ Copper/Manganese/ Seleni/Zn 0.5 ml/ Insulin Human Regular 35 unit/ Potassium Chloride 20 meq/ Total Parenteral Nutrition/Amino Acids/Dextrose/ Fat Emulsion Intravenous 1,400 ml @ 58.333 mls/ hr TPN CONT IV Last administered on 08/04/19at 22:10; Start 08/04/19 at 22:00; Stop 08/05/19 at 21:59; Status DC Sodium Chloride 100 meq/Potassium Phosphate 5 mmol/ Magnesium Sulfate 12 meq/Calcium Gluconate 15 meq/ Multivitamins 10 ml/Chromium/ Copper/Manganese/ Seleni/Zn 0.5 ml/ Insulin Human Regular 35 unit/ Potassium Chloride 20 meq/ Total Parenteral Nutrition/Amino Acids/Dextrose/ Fat Emulsion Intravenous 1,400 ml @ 58.333 mls/ hr TPN CONT IV Last administered on 08/05/19at 22:59; Start 08/05/19 at 22:00; Stop 08/06/19 at 21:59; Status DC Sodium Chloride 1,000 ml @ 1,000 mls/hr Q1H PRN IV hypotension; Start 08/06/19 at 08:27; Stop 08/06/19 at 14:26; Status DC Albumin Human 200 ml @ 200 mls/hr 1X PRN PRN IV Hypotension Last administered on 08/06/19at 09:18; Start 08/06/19 at 08:30; Stop 08/06/19 at 14:29; Status DC Sodium Chloride 1,000 ml @ 400 mls/hr Q2H30M PRN IV PATENCY; Start 08/06/19 at 08:27; Stop 08/06/19 at 20:26; Status DC Info (PHARMACY MONITORING -- do not chart) 1 each PRN DAILY PRN MC SEE COMMENTS; Start 08/06/19 at 08:30; Status Cancel Info (PHARMACY MONITORING -- do not chart) 1 each PRN DAILY PRN MC SEE COMMENTS; Start 08/06/19 at 08:30; Stop 08/14/19 at 13:10; Status DC Sodium Chloride 100 meq/Potassium Chloride 40 meq/ Magnesium Sulfate 15 meq/Calc ium Gluconate 15 meq/ Multivitamins 10 ml/Chromium/ Copper/Manganese/ Seleni/Zn 0.5 ml/ Insulin Human Regular 35 unit/ Total Parenteral Nutrition/Amino Acids/Dextrose/ Fat Emulsion Intravenous 1,400 ml @ 58.333 mls/ hr TPN CONT IV Last administered on 08/06/19at 22:00; Start 08/06/19 at 22:00; Stop 08/07/19 at 21:59; Status DC Potassium Chloride/Water 100 ml @ 100 mls/hr 1X ONCE IV Last administered on 08/06/19at 17:28; Start 08/06/19 at 14:45; Stop 08/06/19 at 15:44; Status DC Sodium Chloride 100 meq/Potassium Chloride 40 meq/ Magnesium Sulfate 15 meq/Calcium Gluconate 15 meq/ Multivitamins 10 ml/Chromium/ Copper/Manganese/ S thien/Zn 0.5 ml/ Insulin Human Regular 35 unit/ Total Parenteral Nutrition/Amino Acids/Dextrose/ Fat Emulsion Intravenous 1,400 ml @ 58.333 mls/ hr TPN CONT IV Last administered on 08/07/19at 22:46; Start 08/07/19 at 22:00; Stop 08/08/19 at 21:59; Status DC Sodium Chloride 100 meq/Potassium Chloride 40 meq/ Magnesium Sulfate 20 meq/Calcium Gluconate 15 meq/ Multivitamins 10 ml/Chromium/ Copper/Manganese/ Seleni/Zn 0.5 ml/ Insulin Human Regular 35 unit/ Total Parenteral Nutrition/Amino Acids/Dextrose/ Fat Emulsion Intravenous 1,400 ml @ 58.333 mls/ hr TPN CONT IV Last administered on 08/08/19at 22:31; Start 08/08/19 at 22:00; Stop 08/09/19 at 21:59; Status DC Fentanyl Citrate (Fentanyl 2ml Vial) 50 mcg PRN Q2HR PRN IVP PAIN Last administered on 08/15/19at 13:32; Start 08/08/19 at 21:00; Stop 08/16/19 at 12:53; Status DC Fentanyl Citrate (Fentanyl 2ml Vial) 25 mcg PRN Q2HR PRN IVP PAIN; Start 08/08/19 at 21:00; Stop 08/16/19 at 12:54; Status DC Enoxaparin Sodium (Lovenox 100mg Syringe) 100 mg Q12HR SQ ; Start 08/09/19 at 21:00; Status UNV Amino Acids/ Glycerin/ Electrolytes 1,000 ml @ 75 mls/hr [id number] IV ; Start 08/08/19 at 21:15; Status UNV Sodium Chloride 1,000 ml @ 1,000 mls/hr Q1H PRN IV hypotension; Start 08/09/19 at 07:56; Stop 08/09/19 at 13:55; Status DC Albumin Human 200 ml @ 200 mls/hr 1X PRN PRN IV Hypotension Last administered on 08/09/19at 08:40; Start 08/09/19 at 08:00; Stop 08/09/19 at 13:59; Status DC Sodium Chloride 1,000 ml @ 400 mls/hr Q2H30M PRN IV PATENCY; Start 08/09/19 at 07:56; Stop 08/09/19 at 19:55; Status DC Info (PHARMACY MONITORING -- do not chart) 1 each PRN DAILY PRN MC SEE COMMENTS; Start 08/09/19 at 08:00; Status UNV Info (PHARMACY MONITORING -- do not chart) 1 each PRN DAILY PRN MC SEE COMMENTS; Start 08/09/19 at 08:00; Status UNV Daptomycin 430 mg/ Sodium Chloride 50 ml @ 100 mls/hr Q24H IV Last administered on 08/09/19at 12:35; Start 08/09/19 at 09:00; Stop 08/09/19 at 12:49; Status DC Sodium Chloride 100 meq/Potassium Chloride 40 meq/ Magnesium Sulfate 20 meq/Calcium Gluconate 15 meq/ Multivitamins 10 ml/Chromium/ Copper/Manganese/ Seleni/Zn 0.5 ml/ Insulin Human Regular 35 unit/ Total Parenteral Nutrition/Amino Acids/Dextrose/ Fat Emulsion Intravenous 1,400 ml @ 58.333 mls/ hr TPN CONT IV Last administered on 08/09/19at 21:26; Start 08/09/19 at 22:00; Stop 08/10/19 at 21:59; Status DC Daptomycin 430 mg/ Sodium Chloride 50 ml @ 100 mls/hr Q48H IV ; Start 08/11/19 at 09:00; Stop 08/10/19 at 11:55; Status DC Sodium Chloride 100 meq/Potassium Chloride 40 meq/ Magnesium Sulfate 20 meq/Calcium Gluconate 15 meq/ Multivitamins 10 ml/Chromium/ Copper/Manganese/ Seleni/Zn 0.5 ml/ Insulin Human Regular 35 unit/ Total Parenteral Nutrition/Amino Acids/Dextrose/ Fat Emulsion Intravenous 1,400 ml @ 58.333 mls/ hr TPN CONT IV Last administered on 08/10/19at 22:27; Start 08/10/19 at 22:00; Stop 08/11/19 at 21:59; Status DC Daptomycin 430 mg/ Sodium Chloride 50 ml @ 100 mls/hr Q24H IV Last administered on 08/12/19at 15:07; Start 08/10/19 at 13:00; Stop 08/13/19 at 1 3:15; Status DC Sodium Chloride 100 meq/Potassium Chloride 40 meq/ Magnesium Sulfate 20 meq/Calcium Gluconate 10 meq/ Multivitamins 10 ml/Chromium/ Copper/Manganese/ Seleni/Zn 0.5 ml/ Insulin Human Regular 35 unit/ Total Parenteral Nutrition/Amino Acids/Dextrose/ Fat Emulsion Intravenous 1,400 ml @ 58.333 mls/ hr TPN CONT IV Last administered on 08/12/19at 00:06; Start 08/11/19 at 22:00; Stop 08/12/19 at 21:59; Status DC Alteplase, Recombinant (Cathflo For Central Catheter Clearance) 1 mg 1X ONCE INT CAT Last administered on 08/12/19at 11:44; Start 08/12/19 at 10:45; Stop 08/12/19 at 10:46; Status DC Ondansetron HCl (Zofran) 4 mg PRN Q6HRS PRN IV NAUSEA/VOMITING; Start 08/15/19 at 07:00; Stop 08/16/19 at 06:59; Status DC Fentanyl Citrate (Fentanyl 2ml Vial) 25 mcg PRN Q5MIN PRN IV MILD PAIN 1-3; Start 08/15/19 at 07:00; Stop 08/16/19 at 06:59; Status DC Fentanyl Citrate (Fentanyl 2ml Vial) 50 mcg PRN Q5MIN PRN IV MODERATE TO SEVERE PAIN Last administered on 08/15/19at 10:17; Start 08/15/19 at 07:00; Stop 08/16/19 at 06:59; Status DC Ringer's Solution 1,000 ml @ 30 mls/hr Q24H IV ; Start 08/15/19 at 07:00; Stop 08/15/19 at 18:59; Status DC Lidocaine HCl (Xylocaine-Mpf 1% 2ml Vial) 2 ml PRN 1X PRN ID PRIOR TO IV START; Start 08/15/19 at 07:00; Stop 08/16/19 at 06:59; Status DC Prochlorperazine Edisylate (Compazine) 5 mg PACU PRN PRN IV NAUSEA, MRX1; Start 08/15/19 at 07:00; Stop 08/16/19 at 06:59; Status DC Sodium Acetate 50 meq/Potassium Acetate 55 meq/ Magnesium Sulfate 20 meq/Calcium Gluconate 10 meq/ Multivitamins 10 ml/Chromium/ Copper/Manganese/ Seleni/Zn 0.5 ml/ Insulin Human Regular 35 unit/ Total Parenteral Nutrition/Amino Acids/Dextrose/ Fat Emulsion Intravenous 1,400 ml @ 58.333 mls/ hr TPN CONT IV ; Start 08/12/19 at 22:00; Stop 08/12/19 at 14:15; Status DC Sodium Acetate 50 meq/Potassium Acetate 55 meq/ Magnesium Sulfate 20 meq/Calcium Gluconate 10 meq/ Multivitamins 10 ml/Chromium/ Copper/Manganese/ Seleni/Zn 0.5 ml/ Insulin Human Regular 35 unit/ Total Parenteral Nutrition/Amino A cids/Dextrose/ Fat Emulsion Intravenous 1,800 ml @ 75 mls/hr TPN CONT IV Last administered on 08/12/19at 22:38; Start 08/12/19 at 22:00; Stop 08/13/19 at 21:59; Status DC Sodium Chloride 1,000 ml @ 1,000 mls/hr Q1H PRN IV hypotension; Start 08/12/19 at 15:31; Stop 08/12/19 at 21:30; Status DC Diphenhydramine HCl (Benadryl) 25 mg 1X PRN PRN IV ITCHING; Start 08/12/19 at 15:45; Stop 08/13/19 at 15:44; Status DC Diphenhydramine HCl (Benadryl) 25 mg 1X PRN PRN IV ITCHING; Start 08/12/19 at 15:45; Stop 08/13/19 at 15:44; Status DC Sodium Chloride 1,000 ml @ 400 mls/hr Q2H30M PRN IV PATENCY; Start 08/12/19 at 15:31; Stop 08/13/19 at 03:30; Status DC Info (PHARMACY MONITORING -- do not chart) 1 each PRN DAILY PRN MC SEE COMMENTS; Start 08/12/19 at 15:45 Sodium Acetate 50 meq/Potassium Acetate 55 meq/ Magnesium Sulfate 20 meq/Calcium Gluconate 10 meq/ Multivitamins 10 ml/Chromium/ Copper/Manganese/ Seleni/Zn 0.5 ml/ Insulin Human Regular 35 unit/ Total Parenteral Nutrition/Amino Acids/Dextrose/ Fat Emulsion Intravenous 1,800 ml @ 75 mls/hr TPN CONT IV Last administered on 08/13/19at 22:03; Start 08/13/19 at 22:00; Stop 08/14/19 at 21:59; Status DC Daptomycin 430 mg/ Sodium Chloride 50 ml @ 100 mls/hr Q24H IV Last administered on 08/18/19at 13:00; Start 08/13/19 at 13:00; Stop 08/18/19 at 20:58; Status DC Heparin Sodium (Porcine) 1000 unit/Sodium Chloride 1,001 ml @ 1,001 mls/hr 1X ONCE IRR ; Start 08/15/19 at 06:00; Stop 08/15/19 at 06:59; Status DC Potassium Acetate 55 meq/Magnesium Sulfate 20 meq/ Calcium Gluconate 10 meq/ Multivitamins 10 ml/Chromium/ Copper/Manganese/ Seleni/Zn 0.5 ml/ Insulin Human Regular 35 unit/ Total Parenteral Nutrition/Amino Acids/Dextrose/ Fat Emulsion Intravenous 1,920 ml @ 80 mls/hr TPN CONT IV Last administered on 08/14/19at 22:10; Start 08/14/19 at 22:00; Stop 08/15/19 at 21:59; Status DC Dexamethasone Sodium Phosphate (Decadron) 4 mg STK-MED ONCE .ROUTE ; Start 08/15/19 at 10:56; Stop 08/15/19 at 10:57; Status DC Ondansetron HCl (Zofran) 4 mg STK-MED ONCE .ROUTE ; Start 08/15/19 at 10:56; Stop 08/15/19 at 10:57; Status DC Rocuronium [place] (Zemuron) 50 mg STK-MED ONCE .ROUTE ; Start 08/15/19 at 10:56; Stop 08/15/19 at 10:57; Status DC Fentanyl Citrate (Fentanyl 2ml Vial) 100 mcg STK-MED ONCE .ROUTE ; Start 08/14 at 10:56; Stop 08/15/19 at 10:57; Status DC Bupivacaine HCl/ Epinephrine Bitart (Sensorcain-Epi 0.5%-1:[id number] Mpf) [address] K-MED ONCE .ROUTE Last administered on 08/15/19at 12:01; Start 08/15/19 at 10:58; Stop 08/15/19 at 10:58; Status DC Cellulose (Surgicel Hemostat 2x14) 1 each STK-MED ONCE .ROUTE ; Start 08/15/19 at 10:58; Stop 08/15/19 at 10:59; Status DC Iohexol (Omnipaque 300 Mg/ml) 50 ml STK-MED ONCE .ROUTE ; Start 08/15/19 at 10:58; Stop 08/15/19 at 10:59; Status DC Cellulose (Surgicel Hemostat 4x8) 1 each STK-MED ONCE .ROUTE ; Start 08/15/19 at 10:58; Stop 08/15/19 at 10:59; Status DC Bisacodyl (Dulcolax Supp) 10 mg STK-MED ONCE .ROUTE ; Start 08/15/19 at 10:59; Stop 08/15/19 at 10:59; Status DC Heparin Sodium (Porcine) 1000 unit/Sodium Chloride 1,001 ml @ 1,001 mls/hr 1X ONCE IRR ; Start 08/15/19 at 12:00; Stop 08/15/19 at 12:59; Status DC Propofol 20 ml @ As Directed STK-MED ONCE IV ; Start 08/15/19 at 11:05; Stop 08/15/19 at 11:05; Status DC Sevoflurane (Ultane) 90 ml STK-MED ONCE IH ; Start 08/15/19 at 11:05; Stop 08/15/19 at 11:05; Status DC Sevoflurane (Ultane) 60 ml STK-MED ONCE IH ; Start 08/15/19 at 12:26; Stop 08/15/19 at 12:27; Status DC Propofol 20 ml @ As Directed STK-MED ONCE IV ; Start 08/15/19 at 12:26; Stop 08/15/19 at 12:27; Status DC Phenylephrine HCl (PHENYLEPHRINE in 0.9% NACL PF) 1 mg STK-MED ONCE IV ; Start 08/15/19 at 12:34; Stop 08/15/19 at 12:34; Status DC Heparin Sodium (Porcine) (Heparin Sodium) 5,000 unit Q12HR SQ Last administered on 08/24/19at 20:57; Start 08/15/19 at 21:00; Stop 08/25/19 at 09:59; Status DC Sodium Chloride (Normal Saline Flush) 3 ml QSHIFT PRN IV AFTER MEDS AND BLOOD DRAWS; Start 08/15/19 at 13:45 Naloxone HCl (Narcan) 0.4 mg PRN Q2MIN PRN IV SEE INSTRUCTIONS; Start 08/15/19 at 13:45 Sodium Chloride 1,000 ml @ 25 mls/hr Q24H IV Last administered on 08/26/19at 03:00; Start 08/15/19 at 13:37 Naloxone HCl (Narcan) 0.4 mg PRN Q2MIN PRN IV SEE INSTRUCTIONS; Start 08/15/19 at 14:30; Status UNV Sodium Chloride 1,000 ml @ 25 mls/hr Q24H IV ; Start 08/15/19 at 14:30; Status UNV Hydromorphone HCl 30 ml @ 0 mls/hr CONT PRN PRN IV PER PROTOCOL Last administered on 08/20/19at 16:08; Start 08/15/19 at 14:30; Stop 08/22/19 at 08:55; Status DC Potassium Acetate 55 meq/Magnesium Sulfate 20 meq/ Calcium Gluconate 10 meq/ Multivitamins 10 ml/Chromium/ Copper/Manganese/ Seleni/Zn 0.5 ml/ Insulin Human Regular 35 unit/ Total Parenteral Nutrition/Amino Acids/Dextrose/ Fat Emulsion Intravenous 1,920 ml @ 80 mls/hr TPN CONT IV Last administered on 08/15/19at 22:01; Start 08/15/19 at 22:00; Stop 08/16/19 at 21:59; Status DC Bumetanide (Bumex) 2 mg [id number] IV Last administered on 08/19/19at 13:50; Start 08/16/19 at 14:00; Stop 08/20/19 at 14:10; Status DC Meropenem 1 gm/ Sodium Chloride 100 ml @ 200 mls/hr Q8HRS IV Last administered on 08/26/19at 14:22; Start 08/16/19 at 14:00 Potassium Acetate 55 meq/Magnesium Sulfate 20 meq/ Calcium Gluconate 10 meq/ Multivitamins 10 ml/Chromium/ Copper/Manganese/ Seleni/Zn 0.5 ml/ Insulin Human Regular 35 unit/ Total Parenteral Nutrition/Amino Acids/Dextrose/ Fat Emulsion Intravenous 1,920 ml @ 80 mls/hr TPN CONT IV Last administered on 08/16/19at 22:02; Start 08/16/19 at 22:00; Stop 08/17/19 at 21:59; Status DC Hydromorphone HCl (Dilaudid Standard [employer]) 12 mg STK-MED ONCE IV ; Start 08/15/19 at 14:35; Stop 08/16/19 at 13:53; Status DC Artificial Tears (Artificial Tears) 1 drop PRN Q15MIN PRN OU DRY EYE Last administered on 08/23/19at 09:10; Start 08/17/19 at 05:30 Hydromorphone HCl (Dilaudid Standard [employer]) 12 mg STK-MED ONCE IV ; Start 08/16/19 at 12:05; Stop 08/17/19 at 09:15; Status DC Potassium Acetate 65 meq/Magnesium Sulfate 20 meq/ Calcium Gluconate 10 meq/ Multivitamins 10 ml/Chromium/ Copper/Manganese/ Seleni/Zn 0.5 ml/ Insulin Human Regular 30 unit/ Total Parenteral Nutrition/Amino Acids/Dextrose/ Fat Emulsion Intravenous 1,920 ml @ 80 mls/hr TPN CONT IV Last administered on 08/17/19at 22:22; Start 08/17/19 at 22:00; Stop 08/18/19 at 21:59; Status DC Cyclobenzaprine HCl (Flexeril) 10 mg PRN Q6HRS PRN PO MUSCLE SPASMS; Start 08/18/19 at 10:45 Potassium Acetate 55 meq/Magnesium Sulfate 20 meq/ Calcium Gluconate 10 meq/ Multivitamins 10 ml/Chromium/ Copper/Manganese/ Seleni/Zn 0.5 ml/ Insulin Human Regular 30 unit/ Total Parenteral Nutrition/Amino Acids/Dextrose/ Fat Emulsion Intravenous 1,920 ml @ 80 mls/hr TPN CONT IV Last administered on 08/19/19at 01:00; Start 08/18/19 at 22:00; Stop 08/19/19 at 21:59; Status DC Magnesium Sulfate 50 ml @ 25 mls/hr 1X ONCE IV Last administered on 08/18/19at 17:18; Start 08/18/19 at 12:45; Stop 08/18/19 at 14:44; Status DC Potassium Chloride/Water 100 ml @ 100 mls/hr 1X ONCE IV Last administered on 08/19/19at 11:27; Start 08/19/19 at 12:00; Stop 08/19/19 at 12:59; Status DC Hydromorphone HCl (Dilaudid Standard [employer]) 12 mg STK-MED ONCE IV ; Start 08/17/19 at 10:50; Stop 08/19/19 at 11:02; Status DC Hydromorphone HCl (Dilaudid Standard [employer]ATOR) 12 mg STK-MED ONCE IV ; Start 08/18/19 at 13:47; Stop 08/19/19 at 11:03; Status DC Potassium Acetate 30 meq/Magnesium Sulfate 20 meq/ Calcium Gluconate 10 meq/ Multivitamins 10 ml/Chromium/ Copper/Manganese/ Seleni/Zn 0.5 ml/ Insulin Human Regular 30 unit/ Potassium Chloride 30 meq/ Total Parenteral Nutrition/Amino Acids/Dextrose/ Fat Emulsion Intravenous 1,920 ml @ 80 mls/hr TPN CONT IV Last administered on 08/19/19at 22:34; Start 08/19/19 at 22:00; Stop 08/20/19 at 21:59; Status DC Potassium Chloride/Water 100 ml @ 100 mls/hr Q1H IV Last administered on 08/20/19at 13:05; Start 08/20/19 at 07:00; Stop 08/20/19 at 10:59; Status DC Magnesium Sulfate 50 ml @ 25 mls/hr 1X ONCE IV Last administered on 08/20/19at 10:34; Start 08/20/19 at 10:30; Stop 08/20/19 at 12:29; Status DC Potassium Chloride 75 meq/ Magnesium Sulfate 20 meq/Calcium Gluconate 10 meq/ Multivitamins 10 ml/Chromium/ Copper/Manganese/ Seleni/Zn 0.5 ml/ Insulin Human Regular 30 unit/ Total Parenteral Nutrition/Amino Acids/Dextrose/ Fat Emulsion Intravenous 1,920 ml @ 80 mls/hr TPN CONT IV Last administered on 08/20/19at 21:51; Start 08/20/19 at 22:00; Stop 08/21/19 at 22:00; Status DC Potassium Chloride 75 meq/ Magnesium Sulfate 20 meq/Calcium Gluconate 10 meq/ Multivitamins 10 ml/Chromium/ Copper/Manganese/ Seleni/Zn 0.5 ml/ Insulin Human Regular 25 unit/ Total Parenteral Nutrition/Amino Acids/Dextrose/ Fat Emulsion Intravenous 1,920 ml @ 80 mls/hr TPN CONT IV Last administered on 08/21/19at 22:04; Start 08/21/19 at 22:00; Stop 08/22/19 at 21:59; Status DC Hydromorphone HCl (Dilaudid) 0.4 mg PRN Q4HRS PRN IVP PAIN Last administered on 08/22/19at 10:57; Start 08/22/19 at 09:00; Stop 08/22/19 at 18:59; Status DC Micafungin Sodium 100 mg/Dextrose 100 ml @ 100 mls/hr Q24H IV Last administered on 08/26/19at 12:38; Start 08/22/19 at 11:00 Daptomycin 485 mg/ Sodium Chloride 50 ml @ 100 mls/hr Q24H IV Last administered on 08/26/19at 11:29; Start 08/22/19 at 11:00 Potassium Chloride 75 meq/ Magnesium Sulfate 15 meq/Calcium Gluconate 8 meq/ Multivitamins 10 ml/Chromium/ Copper/Manganese/ Seleni/Zn 0.5 ml/ Insulin Human Regular 25 unit/ Total Parenteral Nutrition/Amino Acids/Dextrose/ Fat Emulsion Intravenous 1,920 ml @ 80 mls/hr TPN CONT IV Last administered on 08/22/19at 23:08; Start 08/22/19 at 22:00; Stop 08/23/19 at 21:59; Status DC Haloperidol Lactate (Haldol Inj) 3 mg 1X ONCE IVP Last administered on 08/22/19at 14:37; Start 08/22/19 at 14:30; Stop 08/22/19 at 14:31; Status DC Hydromorphone HCl (Dilaudid) 1 mg PRN Q4HRS PRN IVP PAIN Last administered on 08/26/19at 03:00; Start 08/22/19 at 19:00 Potassium Chloride 75 meq/ Magnesium Sulfate 15 meq/Calcium Gluconate 8 meq/ Multivitamins 10 ml/Chromium/ Copper/Manganese/ Seleni/Zn 0.5 ml/ Insulin Human Regular 20 unit/ Total Parenteral Nutrition/Amino Acids/Dextrose/ Fat Emulsion Intravenous 1,920 ml @ 80 mls/hr TPN CONT IV Last administered on 08/23/19at 22:10; Start 08/23/19 at 22:00; Stop 08/24/19 at 21:59; Status DC Lidocaine HCl (Buffered Lidocaine 1%) 3 ml STK-MED ONCE .ROUTE ; Start 08/24/19 at 11:31; Stop 08/24/19 at 11:31; Status DC Lidocaine HCl (Buffered Lidocaine 1%) 3 ml STK-MED ONCE .ROUTE ; Start 08/24/19 at 12:28; Stop 08/24/19 at 12:29; Status DC Lidocaine HCl (Buffered Lidocaine 1%) 6 ml 1X ONCE INJ Last administered on 08/24/19at 12:53; Start 08/24/19 at 12:45; Stop 08/24/19 at 12:46; Status DC Potassium Chloride 75 meq/ Magnesium Sulfate 15 meq/Calcium Gluconate 8 meq/ Multivitamins 10 ml/Chromium/ Copper/Manganese/ Seleni/Zn 0.5 ml/ Insulin Human Regular 20 unit/ Total Parenteral Nutrition/Amino Acids/Dextrose/ Fat Emulsion Intravenous 1,920 ml @ 80 mls/hr TPN CONT IV Last administered on 08/24/19at 22:00; Start 08/24/19 at 22:00; Stop 08/25/19 at 21:59; Status DC Potassium Chloride 75 meq/ Magnesium Sulfate 15 meq/Calcium Gluconate 8 meq/ Multivitamins 10 ml/Chromium/ Copper/Manganese/ Seleni/Zn 0.5 ml/ Insulin Human Regular 15 unit/ Total Parenteral Nutrition/Amino Acids/Dextrose/ Fat Emulsion Intravenous 1,920 ml @ 80 mls/hr TPN CONT IV Last administered on 08/25/19at 22:28; Start 08/25/19 at 22:00; Stop 08/26/19 at 21:59 Vecuronium [place] (Norcuron Bolus) 6 mg PRN Q6HRS PRN IV VENT ASYNCHRONY; Start 08/25/19 at 19:15; Stop 08/25/19 at 19:35; Status DC Bumetanide (Bumex) 2 mg 1X ONCE IV Last administered on 08/25/19at 22:09; Start 08/25/19 at 19:45; Stop 08/25/19 at 19:46; Status DC Lidocaine HCl (Buffered Lidocaine 1%) 3 ml STK-MED ONCE .ROUTE ; Start 08/26/19 at 07:59; Stop 08/26/19 at 07:59; Status DC Midazolam HCl (Versed) 5 mg STK-MED ONCE .ROUTE ; Start 08/26/19 at 08:36; Stop 08/26/19 at 08:36; Status DC Fentanyl Citrate (Fentanyl 5ml Vial) 250 mcg STK-MED ONCE .ROUTE ; Start 08/26/19 at 08:36; Stop 08/26/19 at 08:37; Status DC Lidocaine HCl (Buffered Lidocaine 1%) 3 ml 1X ONCE IJ Last administered on 08/26/19at 09:30; Start 08/26/19 at 09:15; Stop 08/26/19 at 09:16; Status DC Midazolam HCl (Versed) 5 mg 1X ONCE IV Last administered on 08/26/19at 09:30; Start 08/26/19 at 09:15; Stop 08/26/19 at 09:16; Status DC Fentanyl Citrate (Fentanyl 5ml Vial) 250 mcg 1X ONCE IV Last administered on 08/26/19at 09:30; Start 08/26/19 at 09:15; Stop 08/26/19 at 09:16; Status DC Bumetanide (Bumex) 2 mg DAILY IV ; Start 08/26/19 at 10:00 Potassium Chloride 75 meq/ Magnesium Sulfate 15 meq/ Multivitamins 10 ml/Chromium/ Copper/Manganese/ Seleni/Zn 0.5 ml/ Insulin Human Regular 15 unit/ Total Parenteral Nutrition/Amino Acids/Dextrose/ Fat Emulsion Intravenous 1,920 ml @ 80 mls/hr TPN CONT IV ; Start 08/26/19 at 22:00; Stop 08/27/19 at 21:59 Active Scripts Active Reported Bisoprolol Fumarate 5 Mg Tablet 10 Mg PO DAILY Vitals/I & O Vital Sign - Last 24 Hours 08/25/19 08/25/19 08/25/19 08/25/19 15:00 15:45 16:00 16:00 Temp 98.9 98.9 Pulse 97 99 Resp 34 37 B/P (MAP) 133/72 (92) 142/79 (100) Pulse Ox 97 96 97 O2 Delivery Tracheal Collar Tracheal Collar Trach Collar Tracheal Collar O2 Flow Rate 8.0 8.0 8.0 8.0 08/25/19 08/25/19 08/25/19 08/25/19 17:00 17:52 18:00 18:31 Pulse 108 102 Resp 40 32 34 B/P (MAP) 124/71 (88) 151/83 (105) Pulse Ox 96 97 97 98 O2 Delivery Tracheal Collar Tracheal Collar Tracheal Collar Tracheal Collar O2 Flow Rate 8.0 8.0 8.0 08/25/19 08/25/19 08/25/19 08/25/19 19:00 20:00 20:00 20:42 Temp 98.1 98.1 Pulse 117 116 Resp 32 32 B/P (MAP) 148/72 (97) 140/66 (90) Pulse Ox 97 97 97 O2 Delivery Tracheal Collar Trach Collar Tracheal Collar Tracheal Collar O2 Flow Rate 8.0 8.0 8.0 8.0 08/25/19 08/25/19 08/25/19 08/25/19 21:00 22:00 22:08 22:38 Pulse 115 115 Resp 36 33 36 33 B/P (MAP) 151/87 (108) 136/78 (97) Pulse Ox 100 99 97 95 O2 Delivery Tracheal Collar Tracheal Collar Tracheal Collar Tracheal Collar O2 Flow Rate 8.0 8.0 8.0 8.0 08/25/19 08/26/19 08/26/19 08/26/19 23:00 00:00 00:01 01:00 Temp 99.3 99.3 Pulse 124 122 125 Resp 36 36 34 B/P (MAP) 140/74 (96) 162/87 (112) 157/82 (107) Pulse Ox 99 99 95 O2 Delivery Tracheal Collar Trach Collar Tracheal Collar Tracheal Collar O2 Flow Rate 8.0 8.0 8.0 8.0 08/26/19 08/26/19 08/26/19 08/26/19 02:00 03:00 03:00 03:30 Pulse 111 111 Resp 30 28 28 28 B/P (MAP) 164/79 (107) 145/74 (97) Pulse Ox 98 98 97 98 O2 Delivery Tracheal Collar Tracheal Collar O2 Flow Rate 8.0 8.0 8.0 8.0 08/26/19 08/26/19 08/26/19 08/26/19 04:00 04:00 05:00 06:00 Temp 97.3 97.3 Pulse 110 104 109 Resp 31 31 35 B/P (MAP) 154/83 (106) 147/79 (101) 110/63 (79) Pulse Ox 97 97 97 O2 Delivery Trach Collar Tracheal Collar Tracheal Collar Tracheal Collar O2 Flow Rate 8.0 8.0 8.0 8.0 08/26/19 08/26/19 08/26/19 08/26/19 07:00 07:08 08:00 08:00 Temp 97.5 97.5 Pulse 99 104 Resp 28 30 B/P (MAP) 125/72 (89) 150/85 (106) Pulse Ox 96 97 95 O2 Delivery Tracheal Collar Tracheal Collar Tracheal Collar Mechanical Ventilator O2 Flow Rate 8.0 8.0 8.0 08/26/19 08/26/19 08/26/19 08/26/19 09:30 09:32 09:41 09:46 Pulse 91 100 90 Resp 30 28 30 30 B/P (MAP) 130/74 (92) 123/76 (92) Pulse Ox 95 98 95 O2 Delivery Tracheal Collar Tracheal Collar Tracheal Collar Tracheal Collar O2 Flow Rate 15.0 08/26/19 08/26/19 08/26/19 08/26/19 09:51 09:56 10:01 10:06 Pulse 88 90 90 100 Resp 31 30 30 33 B/P (MAP) 134/77 (96) 123/63 (83) 127/68 (87) 135/80 (98) Pulse Ox 96 94 97 95 O2 Delivery Tracheal Collar Tracheal Collar Tracheal Collar Tracheal Collar 08/26/19 08/26/19 08/26/19 08/26/19 10:11 10:16 10:17 10:21 Pulse 98 103 103 100 Resp 33 33 32 34 B/P (MAP) 140/78 (98) 141/77 (98) 141/82 (101) Pulse Ox 97 97 98 98 O2 Delivery Tracheal Collar Tracheal Collar Tracheal Collar Tracheal Collar O2 Flow Rate 15.0 08/26/19 08/26/19 08/26/19 08/26/19 10:26 10:31 10:36 10:41 Pulse 93 99 101 100 Resp 34 34 34 34 B/P (MAP) 140/78 (98) 148/74 (98) 142/85 (104) 142/80 (100) Pulse Ox 95 97 95 100 O2 Delivery Tracheal Collar Tracheal Collar Tracheal Collar Tracheal Collar 08/26/19 08/26/19 08/26/19 08/26/19 10:46 10:51 12:00 12:00 Pulse 101 98 78 Resp 34 34 32 B/P (MAP) 149/80 (103) 144/73 (96) 113/58 (76) Pulse Ox 99 99 99 O2 Delivery Tracheal Collar Tracheal Collar Ventilator Mechanical Ventilator 08/26/19 08/26/19 12:42 12:47 Resp 26 Pulse Ox 99 97 O2 Delivery Ventilator Ventilator Intake and Output 08/25/19 08/25/19 08/26/19 15:00 23:00 07:00 Intake Total 210 ml 1624 ml 2151.1 ml Output Total 475 ml 1400 ml 2200 ml Balance -265 ml 224 ml -48.9 ml Hemodynamically unstable?: No Is patient in severe pain?: Yes Is NPO status required?: Yes NIELS MCGILL MD August 26, 2019 14:27
--- NOTE | 2019-08-26 14:55 | PDOC ---
PULMONARY PROGRESS NOTES Subjective Patient intubated on 07/10 , s/p trach 4/6, awake alert follows commands On pressure support Vitals Vital Signs Date Time Temp Pulse Resp B/P (MAP) Pulse Ox O2 Delivery O2 Flow Rate FiO2 08/26/19 12:47 26 97 Ventilator 08/26/19 12:00 78 113/58 (76) 08/26/19 10:17 15.0 08/26/19 08:00 97.5 97.5 ROS: No Nausea, No Chest Pain, No Abdominal Pain, No Increase Cough General: Alert, No acute distress HEENT: Other (nc at perrl nose clear nech trach site ok no lad no thyromegaly) Lungs: Crackles Cardiovascular: S1, S2 Abdomen: Soft, Non-tender, Other (firm) Neuro Exam: Alert Extremities: Other (+3 generalized edema ) Skin: Warm, Dry Labs Laboratory Tests Test 08/24/19 16:40 08/24/19 17:30 08/25/19 00:09 08/25/19 05:00 Hemoglobin 7.8 g/dL (12.0-15.5) 7.1 g/dL (12.0-15.5) Hematocrit 24.1 % (36.0-47.0) 21.9 % (36.0-47.0) Mean Corpuscular Hemoglobin Concent 32 g/dL (31-37) 33 g/dL (31-37) Glucose (Fingerstick) 108 mg/dL (70-99) 100 mg/dL (70-99) 139 mg/dL (70-99) White Blood Count 9.1 x10^3/uL (4.0-11.0) Red Blood Count 2.44 x10^6/uL (3.50-5.40) Mean Corpuscular Volume 90 fL (79-100) Mean Corpuscular Hemoglobin 29 pg (25-35) Red Cell Distribution Width 17.5 % (11.5-14.5) Platelet Count 382 x10^3/uL (140-400) Neutrophils (%) (Auto) 73 % (31-73) Lymphocytes (%) (Auto) 21 % (24-48) Monocytes (%) (Auto) 5 % (0-9) Eosinophils (%) (Auto) 1 % (0-3) Basophils (%) (Auto) 0 % (0-3) Neutrophils # (Auto) 6.6 x10^3/uL (1.8-7.7) Lymphocytes # (Auto) 1.9 x10^3/uL (1.0-4.8) Monocytes # (Auto) 0.5 x10^3/uL (0.0-1.1) Eosinophils # (Auto) 0.1 x10^3/uL (0.0-0.7) Basophils # (Auto) 0.0 x10^3/uL (0.0-0.2) Sodium Level 152 mmol/L (136-145) Potassium Level 4.2 mmol/L (3.5-5.1) Chloride Level 116 mmol/L (98-107) Carbon Dioxide Level 31 mmol/L (21-32) Anion Gap 5 (6-14) Blood Urea Nitrogen 39 mg/dL (7-20) Creatinine 1.0 mg/dL (0.6-1.0) Estimated GFR (Cockcroft-Gault) 58.9 Glucose Level 153 mg/dL (70-99) Calcium Level 8.4 mg/dL (8.5-10.1) Phosphorus Level 3.3 mg/dL (2.6-4.7) Magnesium Level 2.0 mg/dL (1.8-2.4) Test 08/25/19 11:44 08/25/19 17:57 08/26/19 00:26 08/26/19 05:45 Glucose (Fingerstick) 150 mg/dL (70-99) 152 mg/dL (70-99) 134 mg/dL (70-99) White Blood Count 10.4 x10^3/uL (4.0-11.0) Red Blood Count 2.69 x10^6/uL (3.50-5.40) Hemoglobin 7.8 g/dL (12.0-15.5) Hematocrit 24.3 % (36.0-47.0) Mean Corpuscular Volume 91 fL (79-100) Mean Corpuscular Hemoglobin 29 pg (25-35) Mean Corpuscular Hemoglobin Concent 32 g/dL (31-37) Red Cell Distribution Width 17.5 % (11.5-14.5) Platelet Count 408 x10^3/uL (140-400) Neutrophils (%) (Auto) 78 % (31-73) Lymphocytes (%) (Auto) 15 % (24-48) Monocytes (%) (Auto) 5 % (0-9) Eosinophils (%) (Auto) 2 % (0-3) Basophils (%) (Auto) 0 % (0-3) Neutrophils # (Auto) 8.1 x10^3/uL (1.8-7.7) Lymphocytes # (Auto) 1.5 x10^3/uL (1.0-4.8) Monocytes # (Auto) 0.5 x10^3/uL (0.0-1.1) Eosinophils # (Auto) 0.2 x10^3/uL (0.0-0.7) Basophils # (Auto) 0.0 x10^3/uL (0.0-0.2) Sodium Level 149 mmol/L (136-145) Potassium Level 4.0 mmol/L (3.5-5.1) Chloride Level 112 mmol/L (98-107) Carbon Dioxide Level 31 mmol/L (21-32) Anion Gap 6 (6-14) Blood Urea Nitrogen 37 mg/dL (7-20) Creatinine 0.8 mg/dL (0.6-1.0) Estimated GFR (Cockcroft-Gault) 76.2 BUN/Creatinine Ratio 46 (6-20) Glucose Level 156 mg/dL (70-99) Calcium Level 8.9 mg/dL (8.5-10.1) Total Bilirubin 0.5 mg/dL (0.2-1.0) Aspartate Amino Transf (AST/SGOT) 42 U/L (15-37) Alanine Aminotransferase (ALT/SGPT) 39 U/L (14-59) Alkaline Phosphatase 91 U/L (46-116) Total Protein 5.8 g/dL (6.4-8.2) Albumin 1.7 g/dL (3.4-5.0) Albumin/Globulin Ratio 0.4 (1.0-1.7) Triglycerides Level 199 mg/dL (0-150) Test 08/26/19 05:46 08/26/19 12:36 Glucose (Fingerstick) 142 mg/dL (70-99) 151 mg/dL (70-99) Laboratory Tests Test 08/25/19 17:57 08/26/19 00:26 5/8/20 05:45 08/26/19 05:46 Glucose (Fingerstick) 152 mg/dL (70-99) 134 mg/dL (70-99) 142 mg/dL (70-99) White Blood Count 10.4 x10^3/uL (4.0-11.0) Red Blood Count 2.69 x10^6/uL (3.50-5.40) Hemoglobin 7.8 g/dL (12.0-15.5) Hematocrit 24.3 % (36.0-47.0) Mean Corpuscular Volume 91 fL (79-100) Mean Corpuscular Hemoglobin 29 pg (25-35) Mean Corpuscular Hemoglobin Concent 32 g/dL (31-37) Red Cell Distribution Width 17.5 % (11.5-14.5) Platelet Count 408 x10^3/uL (140-400) Neutrophils (%) (Auto) 78 % (31-73) Lymphocytes (%) (Auto) 15 % (24-48) Monocytes (%) (Auto) 5 % (0-9) Eosinophils (%) (Auto) 2 % (0-3) Basophils (%) (Auto) 0 % (0-3) Neutrophils # (Auto) 8.1 x10^3/uL (1.8-7.7) Lymphocytes # (Auto) 1.5 x10^3/uL (1.0-4.8) Monocytes # (Auto) 0.5 x10^3/uL (0.0-1.1) Eosinophils # (Auto) 0.2 x10^3/uL (0.0-0.7) Basophils # (Auto) 0.0 x10^3/uL (0.0-0.2) Sodium Level 149 mmol/L (136-145) Potassium Level 4.0 mmol/L (3.5-5.1) Chloride Level 112 mmol/L (98-107) Carbon Dioxide Level 31 mmol/L (21-32) Anion Gap 6 (6-14) Blood Urea Nitrogen 37 mg/dL (7-20) Creatinine 0.8 mg/dL (0.6-1.0) Estimated GFR (Cockcroft-Gault) 76.2 BUN/Creatinine Ratio 46 (6-20) Glucose Level 156 mg/dL (70-99) Calcium Level 8.9 mg/dL (8.5-10.1) Total Bilirubin 0.5 mg/dL (0.2-1.0) Aspartate Amino Transf (AST/SGOT) 42 U/L (15-37) Alanine Aminotransferase (ALT/SGPT) 39 U/L (14-59) Alkaline Phosphatase 91 U/L (46-116) Total Protein 5.8 g/dL (6.4-8.2) Albumin 1.7 g/dL (3.4-5.0) Albumin/Globulin Ratio 0.4 (1.0-1.7) Triglycerides Level 199 mg/dL (0-150) Test 08/26/19 12:36 Glucose (Fingerstick) 151 mg/dL (70-99) Medications Active Scripts Medications Dose Route/Sig Max Daily Dose Days Date Category Bisoprolol Fumarate 5 Mg Tablet 10 Mg PO DAILY 07/04/19 Reported Impression . IMPRESSION: 1. Acute hypoxemic respiratory failure secondary to ARDS status post trach, 2. Gallstone pancreatitis 3. Severe metabolic acidosis.stable 4. Acute kidney injury-stable, ON HD-- continue to improve 5. Acute gallstone pancreatitis. 6. Hypoalbuminemia. 7. Moderate persistent effusions 8. Fever- Per ID, per surgery 9. Chronic anemia 10. Covid 19 testing negative 11. Moderate to large ascites-S/P paracentisis 12.S/P paracentisis with 4 liters removed on 08/03/19 Surgery note Operative Note: After obtaining informed consent, patient was taken to OR, induced under GETA and prepped in the usual fashion. 5 mm port placed umbilical and right mid abdomen, all under laparoscopic guidance. Large amount of ascites encountered and aspirated off. Fluid was clear with some whitish debris. Viscera was completely locked in with obliteration of all planes, preventing any significant exploration. Copious irrigation. Given patient's overall clinical improvement, favor against open procedure and attempt at cholecystectomy and/or necrosectomy, given high risk of complications. Cholecystectomy will need to be performed, but favor waiting 3 months. 19 KAYLIN drain placed and secured with 3 0 nylon. Skin repaired with 4 0 monocryl. Dressing placed. Patient tolerated procedure well and sent to PACU in stable condition. All counts correct. Wound class is 4. Plan . Patient tired today now on pressure support Trach shield precedex for anxiety, prn, avoid excessive sedation Follow surgery input Follow ID rec, abx per id Follow nephrology recs Nutritional support per surgery: continue TPN for nutrition DVT/GI PPX : heparin Sq/ protonix d/w RN/RT CODE:FULL HARMEET BEE MD August 26, 2019 14:55
--- NOTE | 2019-08-26 15:24 | RAD ---
Procedure: CT-guided abdominal drain placement x3 Clinical Indication: Adult female with pancreatitis and multiple intra-abdominal fluid collections worrisome for infected pancreatic pseudocyst. Sedation: Conscious sedation was administered with a total intraprocedural [id number] time of 47 minutes. The patient was monitored by a qualified independent observer throughout the time of sedation. Please refer to the medical record for exact doses of medications utilized to achieve moderate sedation. Antibiotics: None Sterility: The procedure was performed in its entirety using appropriate elements of sterile technique. Consent: The procedure was explained in its entirety to the patient or the patients designated cash posting representative by a member of the treatment team, including a discussion of the risks, benefits and commonly accepted alternatives to the procedure, as well as the expected consequences of no therapy whatsoever. Discussion of the risks included, but was not limited to, those that are most frequent and those that are rare but possibly severe or life-threatening, as well as the possibility of unforeseen complications. Technique and Findings: Following informed consent, the patient was prepped and draped in usual sterile fashion. Preliminary CT scan of the area of interest was performed. 1% lidocaine was used to achieve local anesthesia over the left lower quadrant of the abdomen after this area was prepped and draped in usual sterile fashion. A small dermatotomy was made. An 18-gauge needle was advanced into the fluid correction and turbid brown fluid with necrotic debris was aspirated. This needle was then exchanged over wire for 14 Czech pigtail drainage catheter. This catheter was sutured to the skin and placed to bulb suction following removal of large quantities of fluid. The area over the right abdominal wall was then prepped and draped in usual sterile fashion. Once again under periodic CT surveillance, 2 separate areas were anesthetized 1% lidocaine, and 2 small dermatotomies were made, one in the mid abdomen and one in the right lower quadrant. 2 separate 19-gauge needles were advanced into separate fluid collections on the right side, and once again turbid brown fluid was withdrawn from each of these fluid collections. Both needles were then exchanged over wire for 14 Czech pigtail drainage catheters. Both of these catheters were sutured to the skin and placed bulb suction following aspiration of fluid as well. A total volume of 2300 cc of fluid was aspirated from all 3 catheters. Complications: No immediate Impression: 1. CT-guided placement of 3 intra-abdominal drains with aspiration of 2300 cc of thin turbid brown fluid and necrotic debris as described. PQRS Compliance Statement: One or more of the following individualized dose reduction techniques were utilized for this examination: 1. Automated exposure control 2. Adjustment of the mA and/or kV according to patient size 3. Use of iterative reconstruction technique
[2019-08-26] MEDS ORDERED: TOTAL PARENTERAL NUTRITION IV SCH ×8 (22:00)
[2019-08-26] MEDS ORDERED: DEXTROSE 70% IV SCH ×8 (22:00)
[2019-08-26] MEDS ORDERED: AMINO ACID IV SCH ×8 (22:00)
[2019-08-26] MEDS ORDERED: [UNRECOGNIZED DRUG - OTHER] IV SCH ×8 (22:00)
[2019-08-26] MEDS: POLYVINYL ALCOHOL 1.4% OPHTH SOLUTION 15ML BOTTLE. OU PRN (22:00)
[2019-08-27] VITALS (24 sets, daily range): BP systolic 100–180; BP diastolic 60–92
[2019-08-27] MEDS: INSULIN LISPRO 300 UNITS/3 ML VIAL. SQ SCH ×3 (00:54→13:36)
[2019-08-27] MEDS: DEXMEDETOMIDINE 400 MCG in IV NORMAL SALINE 100ML 96 ML IV PRN ×3 (00:58→18:26)
[2019-08-27] MEDS: HYDROmorphone 2 MG/ML VIAL IVP PRN ×3 (01:53→22:40)
[2019-08-27] MEDS: IV NORMAL SALINE 1000ML BAG 1,000 ML IV SCH (02:30)
[2019-08-27] MEDS: MEROPENEM 1 GM in IV NORMAL SALINE 100ML 100 ML IV SCH ×3 (05:44→22:39)
[2019-08-27 06:41] LABS: CALCIUM 8.7 mg/dL (8.5-10.1); CREATININE 0.8 mg/dL (0.6-1.0); GFR 76.2; POTASSIUM 3.9 mmol/L (3.5-5.1)
--- NOTE | 2019-08-27 07:17 | PDOC ---
SURGICAL PROGRESS NOTE Subjective sleeping Vital Signs Vital Signs Date Time Temp Pulse Resp B/P (MAP) Pulse Ox O2 Delivery O2 Flow Rate FiO2 08/27/19 06:00 96 27 108/61 (77) 100 Ventilator 08/27/19 04:00 97.3 8.0 97.3 I&O Intake and Output 08/27/19 07:00 Intake Total 3144.6 ml Output Total 6315 ml Balance -3170.4 ml IV Total 3144.6 ml Output Urine Total 2795 ml Drainage Total 1220 ml Other 2300 ml PATIENT HAS A ROSARIO: Yes Abdomen: Soft, Other (drains in place) Labs Laboratory Tests Test 08/25/19 11:44 08/25/19 17:57 08/26/19 00:26 08/26/19 05:45 Glucose (Fingerstick) 150 mg/dL (70-99) 152 mg/dL (70-99) 134 mg/dL (70-99) White Blood Count 10.4 x10^3/uL (4.0-11.0) Red Blood Count 2.69 x10^6/uL (3.50-5.40) Hemoglobin 7.8 g/dL (12.0-15.5) Hematocrit 24.3 % (36.0-47.0) Mean Corpuscular Volume 91 fL (79-100) Mean Corpuscular Hemoglobin 29 pg (25-35) Mean Corpuscular Hemoglobin Concent 32 g/dL (31-37) Red Cell Distribution Width 17.5 % (11.5-14.5) Platelet Count 408 x10^3/uL (140-400) Neutrophils (%) (Auto) 78 % (31-73) Lymphocytes (%) (Auto) 15 % (24-48) Monocytes (%) (Auto) 5 % (0-9) Eosinophils (%) (Auto) 2 % (0-3) Basophils (%) (Auto) 0 % (0-3) Neutrophils # (Auto) 8.1 x10^3/uL (1.8-7.7) Lymphocytes # (Auto) 1.5 x10^3/uL (1.0-4.8) Monocytes # (Auto) 0.5 x10^3/uL (0.0-1.1) Eosinophils # (Auto) 0.2 x10^3/uL (0.0-0.7) Basophils # (Auto) 0.0 x10^3/uL (0.0-0.2) Sodium Level 149 mmol/L (136-145) Potassium Level 4.0 mmol/L (3.5-5.1) Chloride Level 112 mmol/L (98-107) Carbon Dioxide Level 31 mmol/L (21-32) Anion Gap 6 (6-14) Blood Urea Nitrogen 37 mg/dL (7-20) Creatinine 0.8 mg/dL (0.6-1.0) Estimated GFR (Cockcroft-Gault) 76.2 BUN/Creatinine Ratio 46 (6-20) Glucose Level 156 mg/dL (70-99) Calcium Level 8.9 mg/dL (8.5-10.1) Total Bilirubin 0.5 mg/dL (0.2-1.0) Aspartate Amino Transf (AST/SGOT) 42 U/L (15-37) Alanine Aminotransferase (ALT/SGPT) 39 U/L (14-59) Alkaline Phosphatase 91 U/L (46-116) Total Protein 5.8 g/dL (6.4-8.2) Albumin 1.7 g/dL (3.4-5.0) Albumin/Globulin Ratio 0.4 (1.0-1.7) Triglycerides Level 199 mg/dL (0-150) Test 08/26/19 05:46 08/26/19 12:36 08/26/19 18:13 08/27/19 00:18 Glucose (Fingerstick) 142 mg/dL (70-99) 151 mg/dL (70-99) 150 mg/dL (70-99) 159 mg/dL (70-99) Test 08/27/19 06:00 Sodium Level 149 mmol/L (136-145) Potassium Level 3.9 mmol/L (3.5-5.1) Chloride Level 111 mmol/L (98-107) Carbon Dioxide Level 31 mmol/L (21-32) Anion Gap 7 (6-14) Blood Urea Nitrogen 33 mg/dL (7-20) Creatinine 0.8 mg/dL (0.6-1.0) Estimated GFR (Cockcroft-Gault) 76.2 Glucose Level 145 mg/dL (70-99) Glucose (Fingerstick) 139 mg/dL (70-99) Calcium Level 8.7 mg/dL (8.5-10.1) Laboratory Tests Test 08/26/19 12:36 08/26/19 18:13 08/27/19 00:18 08/27/19 06:00 Glucose (Fingerstick) 151 mg/dL (70-99) 150 mg/dL (70-99) 159 mg/dL (70-99) 139 mg/dL (70-99) Sodium Level 149 mmol/L (136-145) Potassium Level 3.9 mmol/L (3.5-5.1) Chloride Level 111 mmol/L (98-107) Carbon Dioxide Level 31 mmol/L (21-32) Anion Gap 7 (6-14) Blood Urea Nitrogen 33 mg/dL (7-20) Creatinine 0.8 mg/dL (0.6-1.0) Estimated GFR (Cockcroft-Gault) 76.2 Glucose Level 145 mg/dL (70-99) Calcium Level 8.7 mg/dL (8.5-10.1) Problem List Problems Medical Problems: (1) Acute pancreatitis Status: Acute (2) Cholelithiasis Status: Acute Assessment/Plan pancreatitis s/p l/s, drain placement continue supportive care MARV WYNNE MD August 27, 2019 07:17
[2019-08-27] MEDS: PANTOPRAZOLE IV PUSH 40 MG VIAL. IVP SCH (07:55)
[2019-08-27] MEDS: ONDANSETRON PF 4 MG/2 ML VIAL. IV PRN ×2 (07:55→21:13)
--- NOTE | 2019-08-27 08:55 | PDOC ---
PULMONARY PROGRESS NOTES Subjective Patient intubated on 07/10 , s/p trach 4/6, awake alert follows commands On pressure support Vitals Vital Signs Date Time Temp Pulse Resp B/P (MAP) Pulse Ox O2 Delivery O2 Flow Rate FiO2 08/27/19 07:37 100 Ventilator 08/27/19 06:00 96 27 108/61 (77) 08/27/19 04:00 97.3 8.0 97.3 ROS: No Nausea, No Chest Pain, No Abdominal Pain, No Increase Cough General: Alert, No acute distress Lungs: Crackles Cardiovascular: S1, S2 Abdomen: Soft, Non-tender, Other (firm) Neuro Exam: Alert Extremities: Other (+3 generalized edema ) Skin: Warm, Dry Labs Laboratory Tests Test 08/25/19 11:44 08/25/19 17:57 08/26/19 00:26 08/26/19 05:45 Glucose (Fingerstick) 150 mg/dL (70-99) 152 mg/dL (70-99) 134 mg/dL (70-99) White Blood Count 10.4 x10^3/uL (4.0-11.0) Red Blood Count 2.69 x10^6/uL (3.50-5.40) Hemoglobin 7.8 g/dL (12.0-15.5) Hematocrit 24.3 % (36.0-47.0) Mean Corpuscular Volume 91 fL (79-100) Mean Corpuscular Hemoglobin 29 pg (25-35) Mean Corpuscular Hemoglobin Concent 32 g/dL (31-37) Red Cell Distribution Width 17.5 % (11.5-14.5) Platelet Count 408 x10^3/uL (140-400) Neutrophils (%) (Auto) 78 % (31-73) Lymphocytes (%) (Auto) 15 % (24-48) Monocytes (%) (Auto) 5 % (0-9) Eosinophils (%) (Auto) 2 % (0-3) Basophils (%) (Auto) 0 % (0-3) Neutrophils # (Auto) 8.1 x10^3/uL (1.8-7.7) Lymphocytes # (Auto) 1.5 x10^3/uL (1.0-4.8) Monocytes # (Auto) 0.5 x10^3/uL (0.0-1.1) Eosinophils # (Auto) 0.2 x10^3/uL (0.0-0.7) Basophils # (Auto) 0.0 x10^3/uL (0.0-0.2) Sodium Level 149 mmol/L (136-145) Potassium Level 4.0 mmol/L (3.5-5.1) Chloride Level 112 mmol/L (98-107) Carbon Dioxide Level 31 mmol/L (21-32) Anion Gap 6 (6-14) Blood Urea Nitrogen 37 mg/dL (7-20) Creatinine 0.8 mg/dL (0.6-1.0) Estimated GFR (Cockcroft-Gault) 76.2 BUN/Creatinine Ratio 46 (6-20) Glucose Level 156 mg/dL (70-99) Calcium Level 8.9 mg/dL (8.5-10.1) Total Bilirubin 0.5 mg/dL (0.2-1.0) Aspartate Amino Transf (AST/SGOT) 42 U/L (15-37) Alanine Aminotransferase (ALT/SGPT) 39 U/L (14-59) Alkaline Phosphatase 91 U/L (46-116) Total Protein 5.8 g/dL (6.4-8.2) Albumin 1.7 g/dL (3.4-5.0) Albumin/Globulin Ratio 0.4 (1.0-1.7) Triglycerides Level 199 mg/dL (0-150) Test 08/26/19 05:46 08/26/19 12:36 08/26/19 18:13 08/27/19 00:18 Glucose (Fingerstick) 142 mg/dL (70-99) 151 mg/dL (70-99) 150 mg/dL (70-99) 159 mg/dL (70-99) Test 08/27/19 06:00 Sodium Level 149 mmol/L (136-145) Potassium Level 3.9 mmol/L (3.5-5.1) Chloride Level 111 mmol/L (98-107) Carbon Dioxide Level 31 mmol/L (21-32) Anion Gap 7 (6-14) Blood Urea Nitrogen 33 mg/dL (7-20) Creatinine 0.8 mg/dL (0.6-1.0) Estimated GFR (Cockcroft-Gault) 76.2 Glucose Level 145 mg/dL (70-99) Glucose (Fingerstick) 139 mg/dL (70-99) Calcium Level 8.7 mg/dL (8.5-10.1) Laboratory Tests Test 08/26/19 12:36 08/26/19 18:13 08/27/19 00:18 08/27/19 06:00 Glucose (Fingerstick) 151 mg/dL (70-99) 150 mg/dL (70-99) 159 mg/dL (70-99) 139 mg/dL (70-99) Sodium Level 149 mmol/L (136-145) Potassium Level 3.9 mmol/L (3.5-5.1) Chloride Level 111 mmol/L (98-107) Carbon Dioxide Level 31 mmol/L (21-32) Anion Gap 7 (6-14) Blood Urea Nitrogen 33 mg/dL (7-20) Creatinine 0.8 mg/dL (0.6-1.0) Estimated GFR (Cockcroft-Gault) 76.2 Glucose Level 145 mg/dL (70-99) Calcium Level 8.7 mg/dL (8.5-10.1) Medications Active Scripts Medications Dose Route/Sig Max Daily Dose Days Date Category Bisoprolol Fumarate 5 Mg Tablet 10 Mg PO DAILY 07/04/19 Reported Impression . IMPRESSION: 1. Acute hypoxemic respiratory failure secondary to ARDS status post trach, 2. Gallstone pancreatitis 3. Severe metabolic acidosis.stable 4. Acute kidney injury-stable, ON HD-- continue to improve 5. Acute gallstone pancreatitis. 6. Hypoalbuminemia. 7. Moderate persistent effusions 8. Fever- Per ID, per surgery 9. Chronic anemia 10. Covid 19 testing negative 11. Moderate to large ascites-S/P paracentisis 12.S/P paracentisis with 4 liters removed on 08/03/19 13. S?P IR drain placement on 08/26/2019 Plan . Patient is very drowsy today, remains on PS- Follow surgery recs-- S/P 3 drain placed in IR on 08/26/2019 Follow ID recs for ABX Follow nephrology recs Continue TPN DVT/GI PPX: heparin SQ/ protonix D/W RN and RT CODE:HARMEET MILLARD MD August 27, 2019 08:55
--- NOTE | 2019-08-27 10:46 | PDOC ---
Infectious Disease Note Subjective Subjective + abdominal pain No fevers last 24 hrs Remains on vent/trach FiO2 30% Vital Sign Vital Signs Vital Signs Date Time Temp Pulse Resp B/P (MAP) Pulse Ox O2 Delivery O2 Flow Rate FiO2 08/27/19 07:37 100 Ventilator 08/27/19 06:00 96 27 108/61 (77) 08/27/19 04:00 97.3 8.0 97.3 Physical Exam PHYSICAL EXAM GENERAL: Propped up in bed, appears weak, tired HEENT: oral cavity dry, NGT NECK: Trach/vent LUNGS: rhonchi HEART: S1, S2, regular ABDOMEN: Distended, hypoactive BS, tender, + drains : Lind (08/01) EXTREMITIES: Generalized edema, no cyanosis, SCDs bilaterally SKIN: Warm and dry. No generalized rash. LEAD ENGINEER: mouthing words to simple questions PICC(08/17) clean Labs Lab Laboratory Tests Test 08/26/19 12:36 08/26/19 18:13 08/27/19 00:18 08/27/19 06:00 Glucose (Fingerstick) 151 mg/dL (70-99) 150 mg/dL (70-99) 159 mg/dL (70-99) 139 mg/dL (70-99) Sodium Level 149 mmol/L (136-145) Potassium Level 3.9 mmol/L (3.5-5.1) Chloride Level 111 mmol/L (98-107) Carbon Dioxide Level 31 mmol/L (21-32) Anion Gap 7 (6-14) Blood Urea Nitrogen 33 mg/dL (7-20) Creatinine 0.8 mg/dL (0.6-1.0) Estimated GFR (Cockcroft-Gault) 76.2 Glucose Level 145 mg/dL (70-99) Calcium Level 8.7 mg/dL (8.5-10.1) Micro 08/21. BLOOD CULTURE Preliminary NO GROWTH AFTER 4 DAYS 08/14. abd fluid AEROBIC RES 1 Final Organism Identification, Yeast Kiana parapsilosis Objective Assessment Fever - better currently - intermittent could be from underlying pancreatitis blood cults 08/21 - neg so far ? Ileus with vomiting Abd distention - U/S and CT reviewed s/p 0.4 L of opaque, debris-containing ascites was removed 08/23 Acute pancreatitis with persistent necrosis - 08/14 status post KAYLIN drain placement + C paropsilosis. s/p additional drains 08/25 Anemia - S/p PRBCs Cholelithiasis with thickening of the gallbladder wall. Leucocytosis improving JUANA, hyperkalemia, Metabolic acidosis off dialysis Acute hypoxic resp failure ,bilateral pleural effusion and atelectasis hypocalcemia Prediabetes HTN s/p trach Plan Plan of Care Continue Dapto 08/21, merrem 07/26 -try to wean soon Continue micafungin f/u cultures Maintain aspiration precaution Supportive care Critically ill D/w nursing Patient seen and examined. Chart reviewed in detail. Case discussed with HAND DRY CLEANER. Agree with above plan FRANCA HOBSON APRN August 27, 2019 10:45 GERMAN TORRES MD August 27, 2019 21:03
[2019-08-27] MEDS: BUMETANIDE 1 MG/4 ML VIAL. IV SCH (11:24)
[2019-08-27] MEDS: MICAFUNGIN 100 MG in IV DEXTROSE 5% 100ML 100 ML IV SCH (11:25)
[2019-08-27] MEDS: PROCHLORPERAZINE 10 MG/2 ML VIAL. IV PRN (13:25)
[2019-08-27] MEDS: NORMAL SALINE IV SCH (13:26)
[2019-08-27] MEDS: DAPTOMYCIN IV SCH (13:26)
[2019-08-27] MEDS: TPN PER PHARMACY MC PRN (13:28)
--- NOTE | 2019-08-27 13:29 | NUR ---
Pharmacy TPN Dosing Note S: SCOTT AVILA is a 48 year old F Currently receiving Central Continuous TPN started 07/06/19 B:Pertinent PMH: Necrotizing pancreatitis Height: 5 feet, 8 inches Weight: 107.5 kg Current diet: NPO LABS: Sodium: 149 Potassium: 3.9 Chloride: 111 Calcium: 8.7 Corrected Calcium: 10.54 Magnesium: 2 CO2: 31 SCr: 0.8 Glucose: 139-159 Albumin: 1.7 AST: 24 ALT: 39 TPN FORMULA: TPN TYPE: Central Continuous AMINO ACIDS: 90 gm DEXTROSE: 225 gm LIPIDS: 30 gm POTASSIUM CHLORIDE: 75 mEq MAGNESIUM: 15 mEq INSULIN: 15 units MULTIPLE VITAMIN: 10 ml TRACE ELEMENTS: 0.5 ml(s) TPN PLAN: No changes to TPN today. BG at goal. R: Continue same TPN formulation as yesterday. Will monitor electrolytes, glucose, and tolerance to TPN. MIKAYLA CHU RPH, 08/27/19 [id number]
--- NOTE | 2019-08-27 13:39 | PDOC ---
PROGRESS NOTES Subjective Subjective SEEN IN FOLLOW UP OF HYPERNATREMIA AND TPN Objective Objective Vital Signs Date Time Temp Pulse Resp B/P (MAP) Pulse Ox O2 Delivery O2 Flow Rate FiO2 08/27/19 12:00 Trach Collar 08/27/19 11:45 99 08/27/19 11:00 96 27 127/77 (94) 08/27/19 08:00 98.1 98.1 08/27/19 04:00 8.0 Intake and Output 08/27/19 07:00 Intake Total 3144.6 ml Output Total 6315 ml Balance -3170.4 ml IV Total 3144.6 ml Output Urine Total 2795 ml Drainage Total 1220 ml Other 2300 ml Physical Exam Abdomen: Normal bowel sounds, Soft, No tenderness, No hepatosplenomegaly, No masses Heart: Regular rate, Normal S1, Normal S2, No murmurs, Gallops Extremities: No clubbing, No cyanosis, No edema, Normal pulses, No tenderness/swelling General: Alert, Oriented X3, Cooperative, No acute distress Lungs: Clear to auscultation, Normal air movement Psych/Mental Status: Other (ANXIOUS) Diagnosis Other HYPERNATREMIA Assessment Assessment Problems Medical Problems: (1) Acute pancreatitis Status: Acute (2) Cholelithiasis Status: Acute Plan Plan of Care WILL CONT TPN PER LAB. NO NACL IN TPN. INCREASE ACTIVITY TOLERATED. Comment Review of Relevant I have reviewed the following items kolby (where applicable) has been applied. Labs Laboratory Tests Test 08/25/19 17:57 08/26/19 00:26 08/26/19 05:45 08/26/19 05:46 Glucose (Fingerstick) 152 mg/dL (70-99) 134 mg/dL (70-99) 142 mg/dL (70-99) White Blood Count 10.4 x10^3/uL (4.0-11.0) Red Blood Count 2.69 x10^6/uL (3.50-5.40) Hemoglobin 7.8 g/dL (12.0-15.5) Hematocrit 24.3 % (36.0-47.0) Mean Corpuscular Volume 91 fL (79-100) Mean Corpuscular Hemoglobin 29 pg (25-35) Mean Corpuscular Hemoglobin Concent 32 g/dL (31-37) Red Cell Distribution Width 17.5 % (11.5-14.5) Platelet Count 408 x10^3/uL (140-400) Neutrophils (%) (Auto) 78 % (31-73) Lymphocytes (%) (Auto) 15 % (24-48) Monocytes (%) (Auto) 5 % (0-9) Eosinophils (%) (Auto) 2 % (0-3) Basophils (%) (Auto) 0 % (0-3) Neutrophils # (Auto) 8.1 x10^3/uL (1.8-7.7) Lymphocytes # (Auto) 1.5 x10^3/uL (1.0-4.8) Monocytes # (Auto) 0.5 x10^3/uL (0.0-1.1) Eosinophils # (Auto) 0.2 x10^3/uL (0.0-0.7) Basophils # (Auto) 0.0 x10^3/uL (0.0-0.2) Sodium Level 149 mmol/L (136-145) Potassium Level 4.0 mmol/L (3.5-5.1) Chloride Level 112 mmol/L (98-107) Carbon Dioxide Level 31 mmol/L (21-32) Anion Gap 6 (6-14) Blood Urea Nitrogen 37 mg/dL (7-20) Creatinine 0.8 mg/dL (0.6-1.0) Estimated GFR (Cockcroft-Gault) 76.2 BUN/Creatinine Ratio 46 (6-20) Glucose Level 156 mg/dL (70-99) Calcium Level 8.9 mg/dL (8.5-10.1) Total Bilirubin 0.5 mg/dL (0.2-1.0) Aspartate Amino Transf (AST/SGOT) 42 U/L (15-37) Alanine Aminotransferase (ALT/SGPT) 39 U/L (14-59) Alkaline Phosphatase 91 U/L (46-116) Total Protein 5.8 g/dL (6.4-8.2) Albumin 1.7 g/dL (3.4-5.0) Albumin/Globulin Ratio 0.4 (1.0-1.7) Triglycerides Level 199 mg/dL (0-150) Test 08/26/19 12:36 08/26/19 18:13 08/27/19 00:18 08/27/19 06:00 Glucose (Fingerstick) 151 mg/dL (70-99) 150 mg/dL (70-99) 159 mg/dL (70-99) 139 mg/dL (70-99) Sodium Level 149 mmol/L (136-145) Potassium Level 3.9 mmol/L (3.5-5.1) Chloride Level 111 mmol/L (98-107) Carbon Dioxide Level 31 mmol/L (21-32) Anion Gap 7 (6-14) Blood Urea Nitrogen 33 mg/dL (7-20) Creatinine 0.8 mg/dL (0.6-1.0) Estimated GFR (Cockcroft-Gault) 76.2 Glucose Level 145 mg/dL (70-99) Calcium Level 8.7 mg/dL (8.5-10.1) Laboratory Tests Test 08/26/19 18:13 08/27/19 00:18 08/27/19 06:00 Glucose (Fingerstick) 150 mg/dL (70-99) 159 mg/dL (70-99) 139 mg/dL (70-99) Sodium Level 149 mmol/L (136-145) Potassium Level 3.9 mmol/L (3.5-5.1) Chloride Level 111 mmol/L (98-107) Carbon Dioxide Level 31 mmol/L (21-32) Anion Gap 7 (6-14) Blood Urea Nitrogen 33 mg/dL (7-20) Creatinine 0.8 mg/dL (0.6-1.0) Estimated GFR (Cockcroft-Gault) 76.2 Glucose Level 145 mg/dL (70-99) Calcium Level 8.7 mg/dL (8.5-10.1) Microbiology 08/22/19 Blood Culture - Final, Complete NO GROWTH AFTER 5 DAYS 08/18/19 Aerobic Culture - Final, Complete 08/18/19 Aerobic Culture Result 1 (ALEXANDRA) - Final, Complete 08/18/19 Gram Stain - Final, Complete 08/18/19 Gram Stain Result 1 (ALEXANDRA) - Final, Complete 08/18/19 Gram Stain Result 2 (ALEXANDRA) - Final, Complete 08/15/19 Aerobic and Anaerobic Culture - Final, Complete 08/15/19 Anaerobic Culture Result 1 (ALEXANDRA) - Final, Complete 08/15/19 Aerobic Culture - Final, Complete 08/15/19 Aerobic Culture Result 1 (ALEXANDRA) - Final, Complete 08/15/19 Gram Stain - Final, Complete 08/15/19 Gram Stain Result 1 (ALEXANDRA) - Final, Complete 08/15/19 Gram Stain Result 2 (ALEXANDRA) - Final, Complete 07/31/19 Urine Culture - Final, Complete 07/31/19 Urine Culture Result 1 (ALEXANDRA) - Final, Complete Medications Current Medications Sodium Chloride 1,000 ml @ 1,000 mls/hr Q1H IV Last administered on 07/04/19at 03:00; Start 07/04/19 at 03:00; Stop 07/04/19 at 03:59; Status DC Ondansetron HCl (Zofran) 4 mg 1X ONCE IVP Last administered on 07/04/19at 03:27; Start 07/04/19 at 03:00; Stop 07/04/19 at 03:01; Status DC Morphine Sulfate (Morphine Sulfate) 4 mg 1X ONCE IV ; Start 07/04/19 at 03:00; Stop 07/04/19 at 03:01; Status Cancel Ketorolac Tromethamine (Toradol 30mg Vial) 30 mg 1X ONCE IV Last administered on 07/04/19at 02:54; Start 07/04/19 at 03:00; Stop 07/04/19 at 03:01; Status DC Fentanyl Citrate (Fentanyl 2ml Vial) 25 mcg 1X ONCE IVP Last administered on 07/04/19at 03:23; Start 07/04/19 at 03:30; Stop 07/04/19 at 03:31; Status DC Fentanyl Citrate (Fentanyl 2ml Vial) 100 mcg STK-MED ONCE .ROUTE ; Start 07/04/19 at 03:18; Stop 07/04/19 at 03:18; Status DC Iohexol (Omnipaque 350 Mg/ml) 90 ml 1X ONCE IV Last administered on 07/04/19at 03:25; Start 07/04/19 at 03:30; Stop 07/04/19 at 03:31; Status DC Info (CONTRAST GIVEN -- Rx MONITORING) 1 each PRN DAILY PRN MC SEE COMMENTS; Start 07/04/19 at 03:30; Stop 07/06/19 at 03:29; Status DC Hydromorphone HCl (Dilaudid) 0.5 mg 1X ONCE IV Last administered on 07/04/19at 03:55; Start 07/04/19 at 04:30; Stop 07/04/19 at 04:32; Status DC Ondansetron HCl (Zofran) 4 mg PRN Q8HRS PRN IV NAUSEA/VOMITING 1ST CHOICE; Start 07/04/19 at 05:00; Stop 07/04/19 at 09:27; Status DC Morphine Sulfate (Morphine Sulfate) 2 mg PRN Q2HR PRN IV SEVERE PAIN 7-10 Last administered on 07/05/19at 12:26; Start 07/04/19 at 05:00; Stop 07/05/19 at 1 4:15; Status DC Sodium Chloride 1,000 ml @ 125 mls/hr Q8H IV Last administered on 07/04/19at 20:56; Start 07/04/19 at 05:00; Stop 07/05/19 at 04:59; Status DC Hydromorphone HCl (Dilaudid) 0.5 mg PRN Q3HRS PRN IV SEVERE PAIN 7-10 Last administered on 07/05/19at 10:06; Start 07/04/19 at 05:00; Stop 07/05/19 at 12:01; Status DC Piperacillin Sod/ Tazobactam Sod 4.5 gm/Sodium Chloride 100 ml @ 200 mls/hr 1X ONCE IV Last administered on 07/04/19at 05:44; Start 07/04/19 at 06:00; Stop 07/04/19 at 06:29; Status DC Ondansetron HCl (Zofran) 4 mg PRN Q4HRS PRN IV NAUSEA/VOMITING 1ST CHOICE Last administered on 08/27/19at 07:55; Start 07/04/19 at 09:30 Insulin Human Lispro (HumaLOG) 0-9 UNITS Q6HRS SQ Last administered on 08/27/19at 00:54; Start 07/04/19 at 09:30 Dextrose (Dextrose 50%-Water Syringe) 12.5 gm PRN Q15MIN PRN IV SEE COMMENTS; Start 07/04/19 at 09:30 Pantoprazole Sodium (PROTONIX VIAL for IV PUSH) 40 mg DAILYAC IVP Last administered on 08/27/19at 07:55; Start 07/04/19 at 11:30 Prochlorperazine Edisylate (Compazine) 10 mg PRN Q6HRS PRN IV NAUSEA/VOMITING, 2nd CHOICE Last administered on 08/25/19at 03:57; Start 07/04/19 at 17:45 Atenolol (Tenormin) 100 mg DAILY PO ; Start 07/05/19 at 09:00; Stop 07/04/19 at 20:08; Status DC Metoprolol Tartrate (Lopressor Vial) 2.5 mg Q6HRS IVP Last administered on 07/05/19at 05:51; Start 07/04/19 at 20:15; Stop 07/05/19 at 10:02; Status DC Metoprolol Tartrate (Lopressor Vial) 5 mg Q6HRS IVP Last administered on 07/14/19at 00:12; Start 07/05/19 at 10:15; Stop 07/16/19 at 08:48; Status DC Hydromorphone HCl (Dilaudid) 1 mg PRN Q3HRS PRN IV SEVERE PAIN 7-10 Last administered on 07/11/19at 05:13; Start 07/05/19 at 12:00; Stop 07/19/19 at 00:25; Status DC Lidocaine HCl (Buffered Lidocaine 1%) 3 ml STK-MED ONCE .ROUTE ; Start 07/05/19 at 12:55; Stop 07/05/19 at 12:56; Status DC Albumin Human 500 ml @ 125 mls/hr 1X ONCE IV Last administered on 07/05/19at 14:33; Start 07/05/19 at 14:30; Stop 07/05/19 at 18:32; Status DC Norepinephrine Bitartrate 8 mg/ Dextrose 258 ml @ 17.299 mls/ hr CONT PRN IV PER PROTOCOL Last administered on 08/02/19at 12:48; Start 07/05/19 at 15:30; Stop 08/05/19 at 09:19; Status DC Sodium Chloride 1,000 ml @ 125 mls/hr Q8H IV Last administered on 07/05/19at 21:04; Start 07/05/19 at 16:00; Stop 07/06/19 at 02:42; Status DC Albumin Human 500 ml @ 125 mls/hr PRN BID PRN IV After every 2L NSS & BP < 90mm Last administered on 07/20/19at 14:21; Start 07/05/19 at 16:00 Iohexol (Omnipaque 300 Mg/ml) 60 ml 1X ONCE IV Last administered on 07/05/19at 17:20; Start 07/05/19 at 17:00; Stop 07/05/19 at 17:01; Status DC Info (CONTRAST GIVEN -- Rx MONITORING) 1 each PRN DAILY PRN MC SEE COMMENTS; Start 07/05/19 at 17:00; Stop 07/07/19 at 16:59; Status DC Meropenem 1 gm/ Sodium Chloride 100 ml @ 200 mls/hr Q8HRS IV Last administered on 07/06/19at 05:45; Start 07/05/19 at 20:00; Stop 07/06/19 at 08:48; Status DC Furosemide (Lasix) 40 mg 1X ONCE IVP Last administered on 07/05/19at 22:12; Start 07/05/19 at 22:30; Stop 07/05/19 at 22:31; Status DC Calcium Chloride 1000 mg/Sodium Chloride 110 ml @ 220 mls/hr 1X ONCE IV Last administered on 07/05/19at 22:11; Start 07/05/19 at 22:30; Stop 07/05/19 at 22:59; Status DC Albuterol Sulfate (Ventolin Neb Soln) 2.5 mg 1X ONCE NEB Last administered on 07/06/19at 00:56; Start 07/05/19 at 22:30; Stop 07/05/19 at 22:31; Status DC Insulin Human Regular (HumuLIN R VIAL) 5 unit 1X ONCE IV Last administered on 07/05/19at 22:14; Start 07/05/19 at 22:30; Stop 07/05/19 at 22:31; Status DC Magnesium Sulfate 50 ml @ 25 mls/hr 1X ONCE IV Last administered on 07/06/19at 02:57; Start 07/06/19 at 03:00; Stop 07/06/19 at 04:59; Status DC Calcium Gluconate 1000 mg/Sodium Chloride 110 ml @ 220 mls/hr 1X ONCE IV Last administered on 07/06/19at 02:46; Start 07/06/19 at 03:00; Stop 07/06/19 at 03:29; Status DC Sodium Chloride 1,000 ml @ 200 mls/hr Q5H IV Last administered on 07/06/19at 02:46; Start 07/06/19 at 03:00; Stop 07/06/19 at 10:21; Status DC Calcium Gluconate 1000 mg/Sodium Chloride 110 ml @ 220 mls/hr 1X ONCE IV Last administered on 07/06/19at 03:21; Start 07/06/19 at 03:30; Stop 07/06/19 at 03:59; Status DC Sodium Bicarbonate 50 meq/Sodium Chloride 1,050 ml @ 75 mls/hr Q14H IV Last administered on 07/10/19at 21:10; Start 07/06/19 at 07:30; Stop 07/11/19 at 10:28; Status DC Calcium Gluconate 2000 mg/Sodium Chloride 120 ml @ 220 mls/hr 1X ONCE IV Last administered on 07/06/19at 09:05; Start 07/06/19 at 07:30; Stop 07/06/19 at 08:02; Status DC Lidocaine HCl (Xylocaine-Mpf 1% 2ml Vial) 2 ml STK-MED ONCE .ROUTE ; Start 07/06/19 at 08:47; Stop 07/06/19 at 08:47; Status DC Meropenem 500 mg/ Sodium Chloride 50 ml @ 100 mls/hr Q12HR IV Last administered on 07/11/19at 21:01; Start 07/06/19 at 18:00; Stop 07/12/19 at 07:58; Status DC Lidocaine HCl (Buffered Lidocaine 1%) 3 ml STK-MED ONCE .ROUTE ; Start 07/06/19 at 09:46; Stop 07/06/19 at 09:46; Status DC Lidocaine HCl (Buffered Lidocaine 1%) 6 ml 1X ONCE INJ Last administered on 07/06/19at 10:26; Start 07/06/19 at 10:15; Stop 07/06/19 at 10:16; Status DC Info (Tpn Per Pharmacy) 1 each PRN DAILY PRN MC SEE COMMENTS Last administered on 08/27/19at 13:28; Start 07/06/19 at 12:00 Sodium Chloride 1,000 ml @ 1,000 mls/hr Q1H PRN IV hypotension; Start 07/06/19 at 12:07; Stop 07/06/19 at 18:06; Status DC Diphenhydramine HCl (Benadryl) 25 mg 1X PRN PRN IV ITCHING; Start 07/06/19 at 12:15; Stop 07/07/19 at 12:14; Status DC Diphenhydramine HCl (Benadryl) 25 mg 1X PRN PRN IV ITCHING; Start 07/06/19 at 12:15; Stop 07/07/19 at 12:14; Status DC Sodium Chloride 1,000 ml @ 400 mls/hr Q2H30M PRN IV PATENCY; Start 07/06/19 at 12:07; Stop 07/07/19 at 00:06; Status DC Info (PHARMACY MONITORING -- do not chart) 1 each PRN DAILY PRN MC SEE COMMENTS; Start 07/06/19 at 12:15; Stop 07/08/19 at 08:13; Status DC Sodium Chloride 90 meq/Calcium Gluconate 10 meq/ Multivitamins 10 ml/Chromium/ Copper/Manganese/ Seleni/Zn 1 ml/ Total Parenteral Nutrition/Amino Acids/Dextrose/ Fat Emulsion Intravenous 55.005 ml @ 2.292 mls/hr TPN CONT IV ; Start 07/06/19 at 22:00; Stop 07/06/19 at 12:33; Status DC Info (Tpn Per Pharmacy) 1 each PRN DAILY PRN MC SEE COMMENTS; Start 07/06/19 at 12:30; Status UNV Sodium Chloride 90 meq/Calcium Gluconate 10 meq/ Multivitamins 10 ml/Chromium/ Copper/Manganese/ Seleni/Zn 0.5 ml/ Total Parenteral Nutrition/Amino Acids/Dextrose/ Fat Emulsion Intravenous 1,512 ml @ 63 mls/hr TPN CONT IV Last administered on 07/06/19at 22:06; Start 07/06/19 at 22:00; Stop 07/07/19 at 21:59; Status DC Calcium Carbonate/ Glycine (Tums) 500 mg PRN AFTMEALHC PRN PO INDIGESTION; Start 07/06/19 at 17:45 Calcium Gluconate (Calcium Gluconate) 2,000 mg 1X ONCE IVP Last administered on 07/07/19at 02:19; Start 07/07/19 at 02:15; Stop 07/07/19 at 02:16; Status DC Calcium Chloride 3000 mg/Sodium Chloride 1,030 ml @ 50 mls/hr [id number] IV Last administered on 07/09/19at 02:17; Start 07/07/19 at 08:00; Stop 07/09/19 at 15:23; Status DC Lorazepam (Ativan Inj) 1 mg PRN Q4HRS PRN IVP ANXIETY / AGITATION, 2nd choic Last administered on 08/05/19at 03:51; Start 07/07/19 at 09:00; Stop 08/05/19 at 09:19; Status DC Sodium Chloride 1,000 ml @ 1,000 mls/hr Q1H PRN IV hypotension; Start 07/07/19 at 08:56; Stop 07/07/19 at 14:55; Status DC Albumin Human 200 ml @ 200 mls/hr 1X PRN PRN IV Hypotension; Start 07/07/19 at 09:00; Stop 07/07/19 at 14:59; Status DC Diphenhydramine HCl (Benadryl) 25 mg 1X PRN PRN IV ITCHING; Start 07/07/19 at 09:00; Stop 07/08/19 at 08:59; Status DC Diphenhydramine HCl (Benadryl) 25 mg 1X PRN PRN IV ITCHING; Start 07/07/19 at 09:00; Stop 07/08/19 at 08:59; Status DC Sodium Chloride 1,000 ml @ 400 mls/hr Q2H30M PRN IV PATENCY; Start 07/07/19 at 08:56; Stop 07/07/19 at 20:55; Status DC Info (PHARMACY MONITORING -- do not chart) 1 each PRN DAILY PRN MC SEE COMMENTS; Start 07/07/19 at 09:00; Status UNV Info (PHARMACY MONITORING -- do not chart) 1 each PRN DAILY PRN MC SEE COMMENTS; Start 07/07/19 at 09:00; Stop 07/08/19 at 08:13; Status DC Digoxin (Lanoxin) 500 mcg 1X ONCE IV Last administered on 07/07/19at 10:04; Start 07/07/19 at 10:00; Stop 07/07/19 at 10:01; Status DC Digoxin (Lanoxin) 125 mcg 1X ONCE IV Last administered on 07/07/19at 17:10; Start 07/07/19 at 18:00; Stop 07/07/19 at 18:01; Status DC Magnesium Sulfate 100 ml @ 25 mls/hr 1X ONCE IV Last administered on 07/07/19at 12:48; Start 07/07/19 at 13:00; Stop 07/07/19 at 16:59; Status DC Sodium Chloride 90 meq/Magnesium Sulfate 10 meq/ Calcium Gluconate 20 meq/ Multivitamins 10 ml/Chromium/ Copper/Manganese/ Seleni/Zn 0.5 ml/ Total Parenteral Nutrition/Amino Acids/Dextrose/ Fat Emulsion Intravenous 1,512 ml @ 63 mls/hr TPN CONT IV Last administered on 07/07/19at 22:25; Start 07/07/19 at 22:00; Stop 07/08/19 at 21:59; Status DC Sodium Chloride 1,000 ml @ 1,000 mls/hr Q1H PRN IV hypotension; Start 07/08/19 at 08:05; Stop 07/08/19 at 14:04; Status DC Albumin Human 200 ml @ 200 mls/hr 1X ONCE IV Last administered on 07/08/19at 08:57; Start 07/08/19 at 08:15; Stop 07/08/19 at 09:14; Status DC Diphenhydramine HCl (Benadryl) 25 mg 1X PRN PRN IV ITCHING; Start 07/08/19 at 08:15; Stop 07/09/19 at 08:14; Status DC Diphenhydramine HCl (Benadryl) 25 mg 1X PRN PRN IV ITCHING; Start 07/08/19 at 08:15; Stop 07/09/19 at 08:14; Status DC Sodium Chloride 1,000 ml @ 400 mls/hr Q2H30M PRN IV PATENCY; Start 07/08/19 at 08:05; Stop 07/08/19 at 20:04; Status DC Info (PHARMACY MONITORING -- do not chart) 1 each PRN DAILY PRN MC SEE COMMENTS; Start 07/08/19 at 08:15; Stop 07/12/19 at 07:57; Status DC Sodium Chloride 90 meq/Potassium Chloride 15 meq/ Potassium Phosphate 10 mmol/ Magnesium Sulfate 10 meq/Calcium Gluconate 20 meq/ Multivitamins 10 ml/Chromium/ Copper/Manganese/ Seleni/Zn 0.5 ml/ Total Parenteral Nutrition/Amino Acids/Dextrose/ Fat Emulsion Intravenous 1,512 ml @ 63 mls/hr TPN CONT IV Last administered on 07/08/19at 21:01; Start 07/08/19 at 22:00; Stop 07/09/19 at 21:59; Status DC Potassium Chloride/Water 100 ml @ 100 mls/hr 1X ONCE IV Last administered on 07/08/19at 14:09; Start 07/08/19 at 14:00; Stop 07/08/19 at 14:59; Status DC Benzocaine (Hurricaine One) 1 spray 1X ONCE MM Last administered on 07/08/19at 16:38; Start 07/08/19 at 14:30; Stop 07/08/19 at 14:31; Status DC Lidocaine HCl (Glydo (Lidocaine) Jelly) 1 ramu 1X ONCE MM Last administered on 07/08/19at 16:38; Start 07/08/19 at 14:30; Stop 07/08/19 at 14:31; Status DC Linezolid/Dextrose 300 ml @ 300 mls/hr Q12HR IV Last administered on 07/14/19at 21:04; Start 07/08/19 at 20:00; Stop 07/15/19 at 07:50; Status DC Acetaminophen (Tylenol) 650 mg PRN Q6HRS PRN PO MILD PAIN / TEMP; Start 07/09/19 at 03:30; Stop 07/09/19 at 03:36; Status DC Acetaminophen (Tylenol) 650 mg PRN Q6HRS PRN PEG MILD PAIN / TEMP Last administered on 08/04/19at 19:56; Start 07/09/19 at 03:36 Sodium Chloride 1,000 ml @ 1,000 mls/hr Q1H PRN IV hypotension; Start 07/09/19 at 07:50; Stop 07/09/19 at 13:49; Status DC Albumin Human 200 ml @ 200 mls/hr 1X PRN PRN IV Hypotension; Start 07/09/19 at 08:00; Stop 07/09/19 at 13:59; Status DC Sodium Chloride (Normal Saline Flush) 10 ml 1X PRN PRN IV AP catheter pack; Start 07/09/19 at 08:00; Stop 07/10/19 at 07:59; Status DC Sodium Chloride (Normal Saline Flush) 10 ml 1X PRN PRN IV [employer]IAN catheter pack; Start 07/09/19 at 08:00; Stop 07/10/19 at 07:59; Status DC Sodium Chloride 1,000 ml @ 400 mls/hr Q2H30M PRN IV PATENCY; Start 07/09/19 at 07:50; Stop 07/09/19 at 19:49; Status DC Info (PHARMACY MONITORING -- do not chart) 1 each PRN DAILY PRN MC SEE COMMENTS; Start 07/09/19 at 08:00; Status UNV Info (PHARMACY MONITORING -- do not chart) 1 each PRN DAILY PRN MC SEE COMMENTS; Start 07/09/19 at 08:00; Stop 07/11/19 at 08:25; Status DC Sodium Chloride 90 meq/Potassium Chloride 15 meq/ Potassium Phosphate 10 mmol/ Magnesium Sulfate 10 meq/Calcium Gluconate 20 meq/ Multivitamins 10 ml/Chromium/ Copper/Manganese/ Seleni/Zn 0.5 ml/ Total Parenteral Nutrition/Amino Acids/Dextrose/ Fat Emulsion Intravenous 1,512 ml @ 63 mls/hr TPN CONT IV Last administered on 07/09/19at 20:57; Start 07/09/19 at 22:00; Stop 07/10/19 at 21:59; Status DC Sodium Chloride 90 meq/Potassium Chloride 15 meq/ Potassium Phosphate 15 mmol/ Magnesium Sulfate 10 meq/Calcium Gluconate 20 meq/ Multivitamins 10 ml/Chromium/ Copper/Manganese/ Seleni/Zn 0.5 ml/ Total Parenteral Nutrition/Amino Acids/Dextrose/ Fat Emulsion Intravenous 1,512 ml @ 63 mls/hr TPN CONT IV ; Start 07/10/19 at 22:00; Stop 07/10/19 at 14:16; Status DC Sodium Chloride 90 meq/Potassium Chloride 15 meq/ Potassium Phosphate 15 mmol/ Magnesium Sulfate 10 meq/Calcium Gluconate 20 meq/ Multivitamins 10 ml/Chromium/ Copper/Manganese/ Seleni/Zn 0.5 ml/ Total Parenteral Nutrition/Amino Acids/Dextrose/ Fat Emulsion Intravenous 1,200 ml @ 50 mls/hr TPN CONT IV ; Start 07/10/19 at 22:00; Stop 07/10/19 at 14:17; Status DC Sodium Chloride 90 meq/Potassium Chloride 15 meq/ Potassium Phosphate 10 mmol/ Magnesium Sulfate 10 meq/Calcium Gluconate 20 meq/ Multivitamins 10 ml/Chromium/ Copper/Manganese/ Seleni/Zn 0.5 ml/ Total Parenteral Nutrition/Amino Acids/Dextrose/ Fat Emulsion Intravenous 1,200 ml @ 50 mls/hr TPN CONT IV Last administered on 07/10/19at 23:29; Start 07/10/19 at 22:00; Stop 07/11/19 at 21:59; Status DC Sodium Chloride 1,000 ml @ 1,000 mls/hr Q1H PRN IV hypotension; Start 07/11/19 at 07:28; Stop 07/11/19 at 13:27; Status DC Albumin Human 200 ml @ 200 mls/hr 1X ONCE IV Last administered on 07/11/19at 08:51; Start 07/11/19 at 07:30; Stop 07/11/19 at 08:29; Status DC Diphenhydramine HCl (Benadryl) 25 mg 1X PRN PRN IV ITCHING; Start 07/11/19 at 07:30; Stop 07/12/19 at 07:29; Status DC Diphenhydramine HCl (Benadryl) 25 mg 1X PRN PRN IV ITCHING; Start 07/11/19 at 07:30; Stop 07/12/19 at 07:29; Status DC Sodium Chloride 1,000 ml @ 400 mls/hr Q2H30M PRN IV PATENCY; Start 07/11/19 at 07:28; Stop 07/11/19 at 19:27; Status DC Info (PHARMACY MONITORING -- do not chart) 1 each PRN DAILY PRN MC SEE COMMENTS; Start 07/11/19 at 07:30; Stop 07/22/19 at 13:01; Status DC Metronidazole 100 ml @ 100 mls/hr Q6HRS IV Last administered on 07/27/19at 06:26; Start 07/11/19 at 08:30; Stop 07/27/19 at 09:58; Status DC Micafungin Sodium 100 mg/Dextrose 100 ml @ 100 mls/hr Q24H IV Last administered on 08/18/19at 08:18; Start 07/11/19 at 09:00; Stop 08/18/19 at 20:58; Status DC Propofol 0 ml @ As Directed STK-MED ONCE IV ; Start 07/11/19 at 07:53; Stop 06/19 07/07 at 07:53; Status DC Etomidate (Amidate) 20 mg STK-MED ONCE IV ; Start 07/11/19 at 07:53; Stop 07/11/19 at 07:54; Status DC Midazolam HCl (Versed) 5 mg STK-MED ONCE .ROUTE ; Start 07/11/19 at 07:57; Stop 07/11/19 at 07:57; Status DC Fentanyl Citrate 30 ml @ 0 mls/hr CONT PRN IV SEE PROTOCOL Last administered on 08/05/19at 06:12; Start 07/11/19 at 08:15; Stop 08/05/19 at 09:19; Status DC Artificial Tears (Artificial Tears) 1 drop PRN Q1HR PRN OU DRY EYE, 1st choice; Start 07/11/19 at 08:15; Stop 08/17/19 at 05:31; Status DC Midazolam HCl 50 mg/Sodium Chloride 50 ml @ 0 mls/hr CONT PRN IV SEE PROTOCOL Last administered on 07/14/19at 22:39; Start 07/11/19 at 08:15; Stop 07/16/19 at 15:59; Status DC Etomidate (Amidate) 8 mg 1X ONCE IV Last administered on 07/11/19at 08:33; Start 07/11/19 at 08:30; Stop 07/11/19 at 08:31; Status DC Succinylcholine Chloride (Anectine) 120 mg 1X ONCE IV Last administered on 07/11/19at 08:34; Start 07/11/19 at 08:30; Stop 07/11/19 at 08:31; Status DC Midazolam HCl (Versed) 5 mg 1X ONCE IV ; Start 07/11/19 at 08:30; Stop 07/11/19 at 08:31; Status DC Potassium Chloride 15 meq/ Bicarbonate Dialysis Soln w/ out KCl 5,007.5 ml @ 1,000 mls/ hr Q5H1M IV Last administered on 07/12/19at 11:11; Start 07/11/19 at 12:00; Stop 07/12/19 at 11:15; Status DC Potassium Chloride 15 meq/ Bicarbonate Dialysis Soln w/ out KCl 5,007.5 ml @ 1,000 mls/ hr Q5H1M IV Last administered on 07/12/19at 11:12; Start 07/11/19 at 12:00; Stop 07/12/19 at 11:17; Status DC Potassium Chloride 15 meq/ Bicarbonate Dialysis Soln w/ out KCl 5,007.5 ml @ 1,000 mls/ hr Q5H1M IV Last administered on 07/12/19at 11:11; Start 07/11/19 at 12:00; Stop 07/12/19 at 11:19; Status DC Sodium Chloride 90 meq/Potassium Chloride 15 meq/ Potassium Phosphate 10 mmol/ Magnesium Sulfate 10 meq/Calcium Gluconate 20 meq/ Multivitamins 10 ml/Chromium/ Copper/Manganese/ Seleni/Zn 0.5 ml/ Total Parenteral Nutrition/Amino Acids/Dextrose/ Fat Emulsion Intravenous 1,400 ml @ 58.333 mls/ hr TPN CONT IV Last administered on 07/11/19at 21:42; Start 07/11/19 at 22:00; Stop 07/12/19 at 21:59; Status DC Heparin Sodium (Porcine) (Heparin Sodium) 5,000 unit Q8HRS SQ Last administered on 07/16/19at 05:55; Start 07/11/19 at 15:00; Stop 07/16/19 at 13:28; Status DC Meropenem 500 mg/ Sodium Chloride 50 ml @ 100 mls/hr Q6HRS IV Last administered on 07/13/19at 06:00; Start 07/12/19 at 09:00; Stop 07/13/19 at 07:29; Status DC Potassium Phosphate 20 mmol/ Sodium Chloride 106.6667 ml @ 51.667 m... 1X ONCE IV Last administered on 07/12/19at 11:22; Start 07/12/19 at 10:15; Stop 07/12/19 at 12:18; Status DC Acetaminophen (Tylenol Supp) 650 mg PRN Q6HRS PRN SC MILD PAIN / TEMP > 100.3'F Last administered on 08/23/19at 09:12; Start 07/12/19 at 10:30 Potassium Chloride/Water 100 ml @ 100 mls/hr Q1H IV Last administered on 07/12/19at 12:12; Start 07/12/19 at 11:00; Stop 07/12/19 at 12:59; Status DC Potassium Chloride 20 meq/ Bicarbonate Dialysis Soln w/ out KCl 5,010 ml @ 1,000 mls/hr Q5H1M IV Last administered on 07/13/19at 08:48; Start 07/12/19 at 12:00; Stop 07/13/19 at 13:03; Status DC Potassium Chloride 20 meq/ Bicarbonate Dialysis Soln w/ out KCl 5,010 ml @ 1,000 mls/hr Q5H1M IV Last administered on 07/17/19at 14:52; Start 07/12/19 at 11:30; Stop 07/17/19 at 19:59; Status DC Potassium Chloride 20 meq/ Bicarbonate Dialysis Soln w/ out KCl 5,010 ml @ 1,000 mls/hr Q5H1M IV Last administered on 07/17/19at 14:53; Start 07/12/19 at 11:30; Stop 07/17/19 at 19:59; Status DC Sodium Chloride 90 meq/Potassium Chloride 15 meq/ Potassium Phosphate 15 mmol/ Magnesium Sulfate 10 meq/Calcium Gluconate 15 meq/ Multivitamins 10 ml/Chromium/ Copper/Manganese/ Seleni/Zn 0.5 ml/ Total Parenteral Nutrition/Amino Acids/Dextrose/ Fat Emulsion Intravenous 1,400 ml @ 58.333 mls/ hr TPN CONT IV Last administered on 07/12/19at 22:17; Start 07/12/19 at 22:00; Stop 07/13/19 at 21:59; Status DC Cefepime HCl (Maxipime) 2 gm Q12HR IVP Last administered on 07/26/19at 20:56; Start 07/13/19 at 09:00; Stop 07/27/19 at 09:58; Status DC Daptomycin 500 mg/ Sodium Chloride 50 ml @ 100 mls/hr Q48H IV Last administered on 07/29/19at 09:57; Start 07/13/19 at 08:30; Stop 07/29/19 at 10:07; Status DC Lidocaine HCl (Buffered Lidocaine 1%) 3 ml 1X ONCE INJ Last administered on 07/13/19at 10:27; Start 07/13/19 at 10:30; Stop 07/13/19 at 10:31; Status DC Potassium Phosphate 20 mmol/ Sodium Chloride 106.6667 ml @ 51.667 m... 1X ONCE IV Last administered on 07/13/19at 12:51; Start 07/13/19 at 13:00; Stop 07/13/19 at 15:03; Status DC Sodium Chloride 90 meq/Potassium Chloride 15 meq/ Potassium Phosphate 18 mmol/ Magnesium Sulfate 8 meq/Calcium Gluconate 15 meq/ Multivitamins 10 ml/Chromium/ Copper/Manganese/ Seleni/Zn 0.5 ml/ Total Parenteral Nutrition/Amino Acids/Dextrose/ Fat Emulsion Intravenous 1,400 ml @ 58.333 mls/ hr TPN CONT IV Last administered on 07/13/19at 22:16; Start 07/13/19 at 22:00; Stop 07/14/19 at 21:59; Status DC Potassium Chloride 20 meq/ Bicarbonate Dialysis Soln w/ out KCl 5,010 ml @ 1,000 mls/hr Q5H1M IV Last administered on 07/17/19at 14:54; Start 07/13/19 at 16:00; Stop 07/17/19 at 19:59; Status DC Multi-Ingred Cream/Lotion/Oil/ Oint (Artificial Tears Eye Ointment) 1 ramu PRN Q1HR PRN OU DRY EYE, 2nd choice Last administered on 08/01/19at 08:19; Start 07/13/19 at 17:30 Sodium Chloride 90 meq/Potassium Chloride 15 meq/ Potassium Phosphate 18 mmol/ Magnesium Sulfate 8 meq/Calcium Gluconate 15 meq/ Multivitamins 10 ml/Chromium/ Copper/Manganese/ Seleni/Zn 0.5 ml/ Total Parenteral Nutrition/Amino Acids/Dextrose/ Fat Emulsion Intravenous 1,400 ml @ 58.333 mls/ hr TPN CONT IV Last administered on 07/14/19at 22:00; Start 07/14/19 at 22:00; Stop 07/15/19 at 21:59; Status DC Albumin Human 500 ml @ 125 mls/hr 1X ONCE IV ; Start 07/14/19 at 14:15; Stop 07/14/19 at 18:14; Status DC Sodium Chloride 90 meq/Potassium Chloride 15 meq/ Potassium Phosphate 18 mmol/ Magnesium Sulfate 8 meq/Calcium Gluconate 15 meq/ Multivitamins 10 ml/Chromium/ Copper/Manganese/ Seleni/Zn 0.5 ml/ Insulin Human Regular 10 unit/ Total Parenteral Nutrition/Amino Acids/Dextrose/ Fat Emulsion Intravenous 1,400 ml @ 58.333 mls/ hr TPN CONT IV Last administered on 07/15/19at 21:43; Start 07/15/19 at 22:00; Stop 07/16/19 at 21:59; Status DC Lidocaine HCl (Buffered Lidocaine 1%) 3 ml STK-MED ONCE .ROUTE ; Start 07/13/19 at 10:00; Stop 07/15/19 at 13:57; Status DC Midazolam HCl 100 mg/Sodium Chloride 100 ml @ 7 mls/hr CONT PRN IV SEE PROTOCOL Last administered on 07/27/19at 15:35; Start 07/16/19 at 16:00 Sodium Chloride 90 meq/Potassium Chloride 15 meq/ Potassium Phosphate 18 mmol/ Magnesium Sulfate 8 meq/Calcium Gluconate 15 meq/ Multivitamins 10 ml/Chromium/ Copper/Manganese/ Seleni/Zn 0.5 ml/ Insulin Human Regular 15 unit/ Total Parenteral Nutrition/Amino Acids/Dextrose/ Fat Emulsion Intravenous 1,400 ml @ 58.333 mls/ hr TPN CONT IV Last administered on 07/16/19at 20:34; Start 07/16/19 at 22:00; Stop 07/17/19 at 21:59; Status DC Info (Icu Electrolyte Protocol) 1 ea CONT PRN PRN MC PER PROTOCOL; Start 07/17/19 at 13:15 Sodium Chloride 90 meq/Potassium Chloride 15 meq/ Potassium Phosphate 18 mmol/ Magnesium Sulfate 8 meq/Calcium Gluconate 15 meq/ Multivitamins 10 ml/Chromium/ Copper/Manganese/ Seleni/Zn 0.5 ml/ Insulin Human Regular 15 unit/ Total Parenteral Nutrition/Amino Acids/Dextrose/ Fat Emulsion Intravenous 1,400 ml @ 58.333 mls/ hr TPN CONT IV Last administered on 07/17/19at 22:05; Start 07/17/19 at 22:00; Stop 07/18/19 at 21:59; Status DC Potassium Chloride 15 meq/ Bicarbonate Dialysis Soln w/ out KCl 5,007.5 ml @ 1,000 mls/ hr Q5H1M IV Last administered on 07/20/19at 18:14; Start 07/17/19 at 20:00; Stop 07/21/19 at 13:08; Status DC Potassium Chloride 15 meq/ Bicarbonate Dialysis Soln w/ out KCl 5,007.5 ml @ 1,000 mls/ hr Q5H1M IV Last administered on 07/20/19at 18:14; Start 07/17/19 at 20:00; Stop 07/21/19 at 13:08; Status DC Potassium Chloride 15 meq/ Bicarbonate Dialysis Soln w/ out KCl 5,007.5 ml @ 1,000 mls/ hr Q5H1M IV Last administered on 07/20/19at 18:14; Start 07/17/19 at 20:00; Stop 07/21/19 at 13:08; Status DC Iohexol (Omnipaque 240 Mg/ml) 30 ml 1X ONCE PO Last administered on 07/18/19at 11:30; Start 07/18/19 at 11:30; Stop 07/18/19 at 11:33; Status DC Info (CONTRAST GIVEN -- Rx MONITORING) 1 each PRN DAILY PRN MC SEE COMMENTS; Start 07/18/19 at 11:45; Stop 07/20/19 at 11:44; Status DC Sodium Chloride 90 meq/Potassium Chloride 15 meq/ Potassium Phosphate 18 mmol/ Magnesium Sulfate 8 meq/Calcium Gluconate 15 meq/ Multivitamins 10 ml/Chromium/ Copper/Manganese/ Seleni/Zn 0.5 ml/ Insulin Human Regular 15 unit/ Total Parenteral Nutrition/Amino Acids/Dextrose/ Fat Emulsion Intravenous 1,400 ml @ 58.333 mls/ hr TPN CONT IV Last administered on 07/18/19at 21:47; Start 07/18/19 at 22:00; Stop 07/19/19 at 21:59; Status DC Sodium Chloride 90 meq/Potassium Chloride 15 meq/ Potassium Phosphate 18 mmol/ Magnesium Sulfate 8 meq/Calcium Gluconate 15 meq/ Multivitamins 10 ml/Chromium/ Copper/Manganese/ Seleni/Zn 0.5 ml/ Insulin Human Regular 20 unit/ Total Parenteral Nutrition/Amino Acids/Dextrose/ Fat Emulsion Intravenous 1,400 ml @ 58.333 mls/ hr TPN CONT IV Last administered on 07/19/19at 21:36; Start 07/19/19 at 22:00; Stop 07/20/19 at 21:59; Status DC Alteplase, Recombinant (Cathflo For Central Catheter Clearance) 1 mg 1X ONCE INT CAT Last administered on 07/19/19at 20:03; Start 07/19/19 at 19:30; Stop 07/19/19 at 19:46; Status DC Alteplase, Recombinant (Cathflo For Central Catheter Clearance) 1 mg 1X ONCE INT CAT Last administered on 07/19/19at 22:05; Start 07/19/19 at 22:00; Stop 07/19/19 at 22:01; Status DC Sodium Chloride 90 meq/Potassium Chloride 15 meq/ Potassium Phosphate 18 mmol/ Magnesium Sulfate 8 meq/Calcium Gluconate 15 meq/ Multivitamins 10 ml/Chromium/ Copper/Manganese/ Seleni/Zn 0.5 ml/ Insulin Human Regular 20 unit/ Total Parenteral Nutrition/Amino Acids/Dextrose/ Fat Emulsion Intravenous 1,400 ml @ 58.333 mls/ hr TPN CONT IV Last administered on 07/20/19at 21:30; Start 07/20/19 at 22:00; Stop 07/21/19 at 21:59; Status DC Dexmedetomidine HCl 400 mcg/ Sodium Chloride 100 ml @ 0 mls/hr CONT PRN IV ANXIETY / AGITATION Last administered on 08/27/19at 05:45; Start 07/21/19 at 08:15 Sodium Chloride 500 ml @ 500 mls/hr 1X PRN PRN IV ELEVATED BP, SEE COMMENTS; Start 07/21/19 at 08:15 Atropine Sulfate (ATROPINE 0.5mg SYRINGE) 0.5 mg PRN Q5MIN PRN IV SEE COMMENTS; Start 07/21/19 at 08:15 Furosemide (Lasix) 20 mg 1X ONCE IVP Last administered on 07/21/19at 08:19; Start 07/21/19 at 08:15; Stop 07/21/19 at 08:16; Status DC Lidocaine HCl (Buffered Lidocaine 1%) 3 ml STK-MED ONCE .ROUTE ; Start 07/21/19 at 08:39; Stop 07/21/19 at 08:39; Status DC Lidocaine HCl (Buffered Lidocaine 1%) 6 ml 1X ONCE INJ Last administered on 07/21/19at 09:05; Start 07/21/19 at 09:00; Stop 07/21/19 at 09:06; Status DC Sodium Chloride 90 meq/Potassium Chloride 15 meq/ Potassium Phosphate 18 mmol/ Magnesium Sulfate 8 meq/Calcium Gluconate 15 meq/ Multivitamins 10 ml/Chromium/ Copper/Manganese/ Seleni/Zn 0.5 ml/ Insulin Human Regular 20 unit/ Total Parenteral Nutrition/Amino Acids/Dextrose/ Fat Emulsion Intravenous 1,400 ml @ 58.333 mls/ hr TPN CONT IV Last administered on 07/21/19at 22:45; Start 07/21/19 at 22:00; Stop 07/22/19 at 21:59; Status DC Sodium Chloride 1,000 ml @ 1,000 mls/hr Q1H PRN IV hypotension; Start 07/22/19 at 07:30; Stop 07/22/19 at 13:29; Status DC Albumin Human 200 ml @ 200 mls/hr 1X PRN PRN IV Hypotension Last administered on 07/22/19at 09:36; Start 07/22/19 at 07:30; Stop 07/22/19 at 13:29; Status DC Sodium Chloride (Normal Saline Flush) 10 ml 1X PRN PRN IV AP catheter pack; Start 07/22/19 at 07:30; Stop 07/22/19 at 21:29; Status DC Sodium Chloride (Normal Saline Flush) 10 ml 1X PRN PRN IV BICYCLE SERVICE TECHNICIAN catheter pack; Start 07/22/19 at 07:30; Stop 07/23/19 at 07:29; Status DC Sodium Chloride 1,000 ml @ 400 mls/hr Q2H30M PRN IV PATENCY; Start 07/22/19 at 07:30; Stop 07/22/19 at 19:29; Status DC Info (PHARMACY MONITORING -- do not chart) 1 each PRN DAILY PRN MC SEE COMMENTS; Start 07/22/19 at 07:30; Stop 07/22/19 at 13:02; Status DC Info (PHARMACY MONITORING -- do not chart) 1 each PRN DAILY PRN MC SEE COMMENTS; Start 07/22/19 at 07:30; Stop 07/24/19 at 12:45; Status DC Sodium Chloride 90 meq/Potassium Chloride 15 meq/ Potassium Phosphate 10 mmol/ Magnesium Sulfate 8 meq/Calcium Gluconate 15 meq/ Multivitamins 10 ml/Chromium/ Copper/Manganese/ Seleni/Zn 0.5 ml/ Insulin Human Regular 25 unit/ Total Parenteral Nutrition/Amino Acids/Dextrose/ Fat Emulsion Intravenous 1,400 ml @ 58.333 mls/ hr TPN CONT IV Last administered on 07/22/19at 22:19; Start 07/22/19 at 22:00; Stop 07/23/19 at 21:59; Status DC Heparin Sodium (Porcine) (Heparin Sodium) 5,000 unit Q12HR SQ Last administered on 08/14/19at 08:59; Start 07/22/19 at 21:00; Stop 08/14/19 at 10:05; Status DC Ondansetron HCl (Zofran) 4 mg PRN Q6HRS PRN IV NAUSEA/VOMITING; Start 07/25/19 at 07:00; Stop 07/26/19 at 06:59; Status DC Fentanyl Citrate (Fentanyl 2ml Vial) 25 mcg PRN Q5MIN PRN IV MILD PAIN 1-3; Start 07/25/19 at 07:00; Stop 07/26/19 at 06:59; Status DC Fentanyl Citrate (Fentanyl 2ml Vial) 50 mcg PRN Q5MIN PRN IV MODERATE TO SEVERE PAIN; Start 07/25/19 at 07:00; Stop 07/26/19 at 06:59; Status DC Ringer's Solution 1,000 ml @ 30 mls/hr Q24H IV ; Start 07/25/19 at 07:00; Stop 07/25/19 at 18:59; Status DC Lidocaine HCl (Xylocaine-Mpf 1% 2ml Vial) 2 ml PRN 1X PRN ID PRIOR TO IV START; Start 07/25/19 at 07:00; Stop 07/26/19 at 06:59; Status DC Prochlorperazine Edisylate (Compazine) 5 mg PACU PRN PRN IV NAUSEA, MRX1; Star t 07/25/19 at 07:00; Stop 07/26/19 at 06:59; Status DC Sodium Chloride 1,000 ml @ 1,000 mls/hr Q1H PRN IV hypotension; Start 07/23/19 at 09:10; Stop 07/23/19 at 15:09; Status DC Albumin Human 200 ml @ 200 mls/hr 1X PRN PRN IV Hypotension Last administered on 07/23/19at 10:10; Start 07/23/19 at 09:15; Stop 07/23/19 at 15:14; Status DC Sodium Chloride 1,000 ml @ 400 mls/hr Q2H30M PRN IV PATENCY; Start 07/23/19 at 09:10; Stop 07/23/19 at 21:09; Status DC Info (PHARMACY MONITORING -- do not chart) 1 each PRN DAILY PRN MC SEE COMMENTS; Start 07/23/19 at 09:15; Stop 07/24/19 at 12:45; Status DC Info (PHARMACY MONITORING -- do not chart) 1 each PRN DAILY PRN MC SEE COMMENTS; Start 07/23/19 at 09:15; Stop 07/24/19 at 12:45; Status DC Sodium Chloride 90 meq/Potassium Chloride 15 meq/ Potassium Phosphate 10 mmol/ Magnesium Sulfate 8 meq/Calcium Gluconate 15 meq/ Multivitamins 10 ml/Chromium/ Copper/Manganese/ Seleni/Zn 0.5 ml/ Insulin Human Regular 25 unit/ Total Parenteral Nutrition/Amino Acids/Dextrose/ Fat Emulsion Intravenous 1,400 ml @ 58.333 mls/ hr TPN CONT IV Last administered on 07/23/19at 22:10; Start 07/23/19 at 22:00; Stop 07/24/19 at 21:59; Status DC Magnesium Sulfate 50 ml @ 25 mls/hr PRN DAILY PRN IV for Mag < 1.7 on am labs Last administered on 08/08/19at 17:27; Start 07/24/19 at 09:15 Sodium Chloride 90 meq/Potassium Chloride 15 meq/ Potassium Phosphate 10 mmol/ Magnesium Sulfate 8 meq/Calcium Gluconate 15 meq/ Multivitamins 10 ml/Chromium/ Copper/Manganese/ Seleni/Zn 0.5 ml/ Insulin Human Regular 25 unit/ Total Parenteral Nutrition/Amino Acids/Dextrose/ Fat Emulsion Intravenous 1,400 ml @ 58.333 mls/ hr TPN CONT IV Last administered on 07/24/19at 21:20; Start 07/24/19 at 22:00; Stop 07/25/19 at 21:59; Status DC Sodium Chloride 1,000 ml @ 1,000 mls/hr Q1H PRN IV hypotension; Start 07/24/19 at 12:23; Stop 07/24/19 at 18:22; Status DC Albumin Human 200 ml @ 200 mls/hr 1X ONCE IV Last administered on 07/24/19at 13:34; Start 07/24/19 at 12:30; Stop 07/24/19 at 13:29; Status DC Diphenhydramine HCl (Benadryl) 25 mg 1X PRN PRN IV ITCHING; Start 07/24/19 at 12:30; Stop 07/25/19 at 12:29; Status DC Diphenhydramine HCl (Benadryl) 25 mg 1X PRN PRN IV ITCHING; Start 07/24/19 at 12:30; Stop 07/25/19 at 12:29; Status DC Info (PHARMACY MONITORING -- do not chart) 1 each PRN DAILY PRN MC SEE COMMENTS; Start 07/24/19 at 12:30; Status Cancel Bupivacaine HCl/ Epinephrine Bitart (Sensorcain-Epi 0.5%-1:[id number] Mpf) 30 ml STK-MED ONCE .ROUTE Last administered on 07/25/19at 11:44; Start 07/25/19 at 11:00; Stop 07/25/19 at 11:01; Status DC Cellulose (Surgicel Fibrillar 1x2) 1 each STK-MED ONCE .ROUTE ; Start 07/25/19 at 11:00; Stop 07/25/19 at 11:01; Status DC Sodium Chloride 90 meq/Potassium Chloride 15 meq/ Potassium Phosphate 10 mmol/ Magnesium Sulfate 12 meq/Calcium Gluconate 15 meq/ Multivitamins 10 ml/Chromium/ Copper/Manganese/ Seleni/Zn 0.5 ml/ Insulin Human Regular 25 unit/ Total Parenteral Nutrition/Amino Acids/Dextrose/ Fat Emulsion Intravenous 1,400 ml @ 58.333 mls/ hr TPN CONT IV Last administered on 07/25/19at 22:24; Start 07/25/19 at 22:00; Stop 07/26/19 at 21:59; Status DC Propofol 20 ml @ As Directed STK-MED ONCE IV ; Start 07/25/19 at 11:07; Stop at 11:07; Status DC Cellulose (Surgicel Hemostat 4x8) 1 each STK-MED ONCE .ROUTE Last administered on 07/25/19at 11:44; Start 07/25/19 at 11:55; Stop 07/25/19 at 11:56; Status DC Sevoflurane (Ultane) 60 ml STK-MED ONCE IH ; Start 07/25/19 at 12:46; Stop 07/25/19 at 12:46; Status DC Sodium Chloride 1,000 ml @ 1,000 mls/hr Q1H PRN IV hypotension; Start 07/25/19 at 13:51; Stop 07/25/19 at 19:50; Status DC Albumin Human 200 ml @ 200 mls/hr 1X PRN PRN IV Hypotension Last administered on 07/25/19at 14:51; Start 07/25/19 at 14:00; Stop 07/25/19 at 19:59; Status DC Diphenhydramine HCl (Benadryl) 25 mg 1X PRN PRN IV ITCHING; Start 07/25/19 at 14:00; Stop 07/26/19 at 13:59; Status DC Diphenhydramine HCl (Benadryl) 25 mg 1X PRN PRN IV ITCHING; Start 07/25/19 at 14:00; Stop 07/26/19 at 13:59; Status DC Sodium Chloride 1,000 ml @ 400 mls/hr Q2H30M PRN IV PATENCY; Start 07/25/19 at 13:51; Stop 07/26/19 at 01:50; Status DC Info (PHARMACY MONITORING -- do not chart) 1 each PRN DAILY PRN MC SEE COMMENTS; Start 07/25/19 at 14:00; Stop 07/28/19 at 08:16; Status DC Heparin Sodium (Porcine) (Hep Lock Adult) 500 unit STK-MED ONCE IVP ; Start 07/26/19 at 09:29; Stop 07/26/19 at 09:30; Status DC Sodium Chloride 1,000 ml @ 1,000 mls/hr Q1H PRN IV hypotension; Start 07/26/19 at 10:43; Stop 07/26/19 at 16:42; Status DC Sodium Chloride 1,000 ml @ 400 mls/hr Q2H30M PRN IV PATENCY; Start 07/26/19 at 10:43; Stop 07/26/19 at 22:42; Status DC Info (PHARMACY MONITORING -- do not chart) 1 each PRN DAILY PRN MC SEE COMMENTS; Start 07/26/19 at 10:45; Status UNV Info (PHARMACY MONITORING -- do not chart) 1 each PRN DAILY PRN MC SEE COMMENTS; Start 07/26/19 at 10:45; Status UNV Sodium Chloride 90 meq/Potassium Chloride 15 meq/ Magnesium Sulfate 12 meq/Calcium Gluconate 15 meq/ Multivitamins 10 ml/Chromium/ Copper/Manganese/ Seleni/Zn 0.5 ml/ Insulin Human Regular 25 unit/ Total Parenteral Nutrition/Amino Acids/Dextrose/ Fat Emulsion Intravenous 1,400 ml @ 58.333 mls/ hr TPN CONT IV Last administered on 07/26/19at 22:13; Start 07/26/19 at 22:00; S top 07/27/19 at 21:59; Status DC Sodium Chloride 1,000 ml @ 1,000 mls/hr Q1H PRN IV hypotension; Start 07/27/19 at 07:50; Stop 07/27/19 at 13:49; Status DC Albumin Human 200 ml @ 200 mls/hr 1X ONCE IV ; Start 07/27/19 at 08:00; Stop 07/27/19 at 08:53; Status DC Diphenhydramine HCl (Benadryl) 25 mg 1X PRN PRN IV ITCHING; Start 07/27/19 at 08:00; Stop 07/28/19 at 07:59; Status DC Diphenhydramine HCl (Benadryl) 25 mg 1X PRN PRN IV ITCHING; Start 07/27/19 at 08:00; Stop 07/28/19 at 07:59; Status DC Info (PHARMACY MONITORING -- do not chart) 1 each PRN DAILY PRN MC SEE COMMENTS; Start 07/27/19 at 08:00; Stop 07/28/19 at 08:16; Status DC Albumin Human 50 ml @ 50 mls/hr 1X ONCE IV ; Start 07/27/19 at 08:53; Stop 07/27/19 at 08:56; Status DC Albumin Human 200 ml @ 50 mls/hr PRN 1X PRN IV HYPOTENSION Last administered on 08/02/19at 11:54; Start 07/27/19 at 09:00 Meropenem 500 mg/ Sodium Chloride 50 ml @ 100 mls/hr Q12H IV Last administered on 08/16/19at 10:45; Start 07/27/19 at 10:00; Stop 08/16/19 at 12:37; Status DC Sodium Chloride 90 meq/Magnesium Sulfate 12 meq/ Calcium Gluconate 15 meq/ Multivitamins 10 ml/Chromium/ Copper/Manganese/ Seleni/Zn 0.5 ml/ Insulin Human Regular 25 unit/ Total Parenteral Nutrition/Amino Acids/Dextrose/ Fat Emulsion Intravenous 1,400 ml @ 58.333 mls/ hr TPN CONT IV Last administered on 07/27/19at 21:41; Start 07/27/19 at 22:00; Stop 07/28/19 at 21:59; Status DC Sodium Chloride 1,000 ml @ 1,000 mls/hr Q1H PRN IV hypotension; Start 07/28/19 at 07:58; Stop 07/28/19 at 13:57; Status DC Albumin Human 200 ml @ 200 mls/hr 1X PRN PRN IV Hypotension Last administered on 07/28/19at 09:30; Start 07/28/19 at 08:00; Stop 07/28/19 at 13:59; Status DC Sodium Chloride 1,000 ml @ 400 mls/hr Q2H30M PRN IV PATENCY; Start 07/28/19 at 07:58; Stop 07/28/19 at 19:57; Status DC Info (PHARMACY MONITORING -- do not chart) 1 each PRN DAILY PRN MC SEE COMMENTS; Start 07/28/19 at 08:00; Status Cancel Info (PHARMACY MONITORING -- do not chart) 1 each PRN DAILY PRN MC SEE COMMENTS; Start 07/28/19 at 08:15; Status UNV Sodium Chloride 90 meq/Potassium Phosphate 5 mmol/ Magnesium Sulfate 12 meq/Calcium Gluconate 15 meq/ Multivitamins 10 ml/Chromium/ Copper/Manganese/ Seleni/Zn 0.5 ml/ Insulin Human Regular 30 unit/ Total Parenteral Nutrition/Amino Acids/Dextrose/ Fat Emulsion Intravenous 1,400 ml @ 58.333 mls/ hr TPN CONT IV Last administered on 07/28/19at 22:08; Start 07/28/19 at 22:00; Stop 07/29/19 at 21:59; Status DC Linezolid/Dextrose 300 ml @ 300 mls/hr Q12HR IV Last administered on 08/08/19at 20:40; Start 07/29/19 at 11:00; Stop 08/09/19 at 08:10; Status DC Sodium Chloride 90 meq/Potassium Phosphate 15 mmol/ Magnesium Sulfate 12 meq/Calcium Gluconate 15 meq/ Multivitamins 10 ml/Chromium/ Copper/Manganese/ Seleni/Zn 0.5 ml/ Insulin Human Regular 30 unit/ Total Parenteral Nutrition/Amino Acids/Dextrose/ Fat Emulsion Intravenous 1,400 ml @ 58.333 mls/ hr TPN CONT IV Last administered on 07/29/19at 21:49; Start 07/29/19 at 22:00; Stop 07/30/19 at 21:59; Status DC Sodium Chloride 90 meq/Potassium Phosphate 15 mmol/ Magnesium Sulfate 12 meq/Calcium Gluconate 15 meq/ Multivitamins 10 ml/Chromium/ Copper/Manganese/ Seleni/Zn 0.5 ml/ Insulin Human Regular 40 unit/ Total Parenteral Nutrition/Amino Acids/Dextrose/ Fat Emulsion Intravenous 1,400 ml @ 58.333 mls/ hr TPN CONT IV Last administered on 07/30/19at 21:21; Start 07/30/19 at 22:00; Stop 07/31/19 at 21:59; Status DC Sodium Chloride 1,000 ml @ 1,000 mls/hr Q1H PRN IV hypotension; Start 07/30/19 at 13:26; Stop 07/30/19 at 19:25; Status DC Albumin Human 200 ml @ 200 mls/hr 1X PRN PRN IV Hypotension Last administered on 07/30/19at 15:00; Start 07/30/19 at 13:30; Stop 07/30/19 at 19:29; Status DC Sodium Chloride (Normal Saline Flush) 10 ml 1X PRN PRN IV AP catheter pack; Start 07/30/19 at 13:30; Stop 07/31/19 at 13:29; Status DC Sodium Chloride (Normal Saline Flush) 10 ml 1X PRN PRN IV BICYCLE SERVICE TECHNICIAN catheter pack; Start 07/30/19 at 13:30; Stop 07/31/19 at 13:29; Status DC Sodium Chloride 1,000 ml @ 400 mls/hr Q2H30M PRN IV PATENCY; Start 07/30/19 at 13:26; Stop 07/31/19 at 01:25; Status DC Info (PHARMACY MONITORING -- do not chart) 1 each PRN DAILY PRN MC SEE COMMENTS; Start 07/30/19 at 13:30; Stop 07/30/19 at 13:33; Status DC Info (PHARMACY MONITORING -- do not chart) 1 each PRN DAILY PRN MC SEE COMMENTS; Start 07/30/19 at 13:30; Stop 07/30/19 at 13:34; Status DC Sodium Chloride 90 meq/Potassium Phosphate 19 mmol/ Magnesium Sulfate 12 meq/Calcium Gluconate 15 meq/ Multivitamins 10 ml/Chromium/ Copper/Manganese/ Seleni/Zn 0.5 ml/ Insulin Human Regular 40 unit/ Total Parenteral Nutrition/Amino Acids/Dextrose/ Fat Emulsion Intravenous 1,400 ml @ 58.333 mls/ hr TPN CONT IV Last administered on 07/31/19at 21:54; Start 07/31/19 at 22:00; Stop 08/01/19 at 21:59; Status DC Sodium Chloride 1,000 ml @ 1,000 mls/hr Q1H PRN IV hypotension; Start 08/01/19 at 09:35; Stop 08/01/19 at 15:34; Status DC Albumin Human 200 ml @ 200 mls/hr 1X PRN PRN IV Hypotension; Start 08/01/19 at 09:45; Stop 08/01/19 at 15:44; Status DC Diphenhydramine HCl (Benadryl) 25 mg 1X PRN PRN IV ITCHING; Start 08/01/19 at 09:45; Stop 08/02/19 at 09:44; Status DC Diphenhydramine HCl (Benadryl) 25 mg 1X PRN PRN IV ITCHING; Start 08/01/19 at 09:45; Stop 08/02/19 at 09:44; Status DC Sodium Chloride 1,000 ml @ 400 mls/hr Q2H30M PRN IV PATENCY; Start 08/01/19 at 09:35; Stop 08/01/19 at 21:34; Status DC Info (PHARMACY MONITORING -- do not chart) 1 each PRN DAILY PRN MC SEE COMMENTS; Start 08/01/19 at 09:45; Status Cancel Sodium Chloride 100 meq/Potassium Phosphate 19 mmol/ Magnesium Sulfate 12 meq/Calcium Gluconate 15 meq/ Multivitamins 10 ml/Chromium/ Copper/Manganese/ Seleni/Zn 0.5 ml/ Insulin Human Regular 40 unit/ Potassium Chloride 20 meq/ Total Parenteral Nutrition/Amino Acids/Dextrose/ Fat Emulsion Intravenous 1,400 ml @ 58.333 mls/ hr TPN CONT IV Last administered on 08/01/19at 22:02; Start 08/01/19 at 22:00; Stop 08/02/19 at 21:59; Status DC Furosemide (Lasix) 40 mg 1X ONCE IVP Last administered on 08/01/19at 14:39; Start 08/01/19 at 14:30; Stop 08/01/19 at 14:31; Status DC Metronidazole 100 ml @ 100 mls/hr Q8HRS IV Last administered on 08/09/19at 06:04; Start 08/02/19 at 10:00; Stop 08/09/19 at 08:10; Status DC Sodium Chloride 1,000 ml @ 1,000 mls/hr Q1H PRN IV hypotension; Start 08/02/19 at 08:00; Stop 08/02/19 at 13:59; Status DC Albumin Human 200 ml @ 200 mls/hr 1X PRN PRN IV Hypotension; Start 08/02/19 at 08:00; Stop 08/02/19 at 13:59; Status DC Sodium Chloride 1,000 ml @ 400 mls/hr Q2H30M PRN IV PATENCY; Start 08/02/19 at 08:00; Stop 08/02/19 at 19:59; Status DC Info (PHARMACY MONITORING -- do not chart) 1 each PRN DAILY PRN MC SEE COMMENTS; Start 08/02/19 at 11:30; Status UNV Info (PHARMACY MONITORING -- do not chart) 1 each PRN DAILY PRN MC SEE COMMENTS; Start 08/02/19 at 11:30; Stop 08/04/19 at 12:13; Status DC Sodium Chloride 100 meq/Potassium Phosphate 19 mmol/ Magnesium Sulfate 12 meq/Calcium Gluconate 15 meq/ Multivitamins 10 ml/Chromium/ Copper/Manganese/ Seleni/Zn 0.5 ml/ Insulin Human Regular 40 unit/ Potassium Chloride 20 meq/ Total Parenteral Nutrition/Amino Acids/Dextrose/ Fat Emulsion Intravenous 1,400 ml @ 58.333 mls/ hr TPN CONT IV Last administered on 08/02/19at 21:52; Start 08/02/19 at 22:00; Stop 08/03/19 at 21:59; Status DC Sodium Chloride (Normal Saline Flush) 10 ml QSHIFT PRN IV AFTER MEDS AND BLOOD DRAWS; Start 08/02/19 at 15:00 Sodium Chloride (Normal Saline Flush) 10 ml PRN Q5MIN PRN IV AFTER MEDS AND BLOOD DRAWS; Start 08/02/19 at 15:00 Sodium Chloride (Normal Saline Flush) 20 ml PRN Q5MIN PRN IV AFTER MEDS AND BLOOD DRAWS; Start 08/02/19 at 15:00 Sodium Chloride 100 meq/Potassium Phosphate 19 mmol/ Magnesium Sulfate 12 meq/Calcium Gluconate 15 meq/ Multivitamins 10 ml/Chromium/ Copper/Manganese/ Seleni/Zn 0.5 ml/ Insulin Human Regular 40 unit/ Potassium Chloride 20 meq/ Total Parenteral Nutrition/Amino Acids/Dextrose/ Fat Emulsion Intravenous 1,400 ml @ 58.333 mls/ hr TPN CONT IV Last administered on 08/03/19at 21:20; Start 08/03/19 at 22:00; Stop 08/04/19 at 21:59; Status DC Lidocaine HCl (Buffered Lidocaine 1%) 3 ml STK-MED ONCE .ROUTE ; Start 08/03/19 at 13:16; Stop 08/03/19 at 13:16; Status DC Lidocaine HCl (Buffered Lidocaine 1%) 6 ml 1X ONCE INJ Last administered on at 13:45; Start 08/03/19 at 13:30; Stop 08/03/19 at 13:31; Status DC Albumin Human 100 ml @ 100 mls/hr 1X ONCE IV Last administered on 08/03/19at 15:41; Start 08/03/19 at 15:00; Stop 08/03/19 at 15:59; Status DC Albumin Human 50 ml @ 50 mls/hr 1X ONCE IV Last administered on 08/03/19at 15:00; Start 08/03/19 at 15:00; Stop 08/03/19 at 15:59; Status DC Info (PHARMACY MONITORING -- do not chart) 1 each PRN DAILY PRN MC SEE COMMENTS; Start 08/04/19 at 11:30; Status Cancel Info (PHARMACY MONITORING -- do not chart) 1 each PRN DAILY PRN MC SEE COMMENTS; Start 08/04/19 at 11:30; Status UNV Sodium Chloride 100 meq/Potassium Phosphate 10 mmol/ Magnesium Sulfate 12 meq/Calcium Gluconate 15 meq/ Multivitamins 10 ml/Chromium/ Copper/Manganese/ Seleni/Zn 0.5 ml/ Insulin Human Regular 35 unit/ Potassium Chloride 20 meq/ Total Parenteral Nutrition/Amino Acids/Dextrose/ Fat Emulsion Intravenous 1,400 ml @ 58.333 mls/ hr TPN CONT IV Last administered on 08/04/19at 22:10; Start 08/04/19 at 22:00; Stop 08/05/19 at 21:59; Status DC Sodium Chloride 100 meq/Potassium Phosphate 5 mmol/ Magnesium Sulfate 12 meq/Calcium Gluconate 15 meq/ Multivitamins 10 ml/Chromium/ Copper/Manganese/ Seleni/Zn 0.5 ml/ Insulin Human Regular 35 unit/ Potassium Chloride 20 meq/ Total Parenteral Nutrition/Amino Acids/Dextrose/ Fat Emulsion Intravenous 1,400 ml @ 58.333 mls/ hr TPN CONT IV Last administered on 08/05/19at 22:59; Start 08/05/19 at 22:00; Stop 08/06/19 at 21:59; Status DC Sodium Chloride 1,000 ml @ 1,000 mls/hr Q1H PRN IV hypotension; Start 08/06/19 at 08:27; Stop 08/06/19 at 14:26; Status DC Albumin Human 200 ml @ 200 mls/hr 1X PRN PRN IV Hypotension Last administered on 08/06/19at 09:18; Start 08/06/19 at 08:30; Stop 08/06/19 at 14:29; Status DC Sodium Chloride 1,000 ml @ 400 mls/hr Q2H30M PRN IV PATENCY; Start 08/06/19 at 08:27; Stop 08/06/19 at 20:26; Status DC Info (PHARMACY MONITORING -- do not chart) 1 each PRN DAILY PRN MC SEE COMMENTS; Start 08/06/19 at 08:30; Status Cancel Info (PHARMACY MONITORING -- do not chart) 1 each PRN DAILY PRN MC SEE COMMENTS; Start 08/06/19 at 08:30; Stop 08/14/19 at 13:10; Status DC Sodium Chloride 100 meq/Potassium Chloride 40 meq/ Magnesium Sulfate 15 meq/Calcium Gluconate 15 meq/ Multivitamins 10 ml/Chromium/ Copper/Manganese/ Seleni/Zn 0.5 ml/ Insulin Human Regular 35 unit/ Total Parenteral Nutrition/Amino Acids/Dextrose/ Fat Emulsion Intravenous 1,400 ml @ 58.333 mls/ hr TPN CONT IV Last administered on 08/06/19at 22:00; Start 08/06/19 at 22:00; Stop 08/07/19 at 21:59; Status DC Potassium Chloride/Water 100 ml @ 100 mls/hr 1X ONCE IV Last administered on 08/06/19at 17:28; Start 08/06/19 at 14:45; Stop 08/06/19 at 15:44; Status DC Sodium Chloride 100 meq/Potassium Chloride 40 meq/ Magnesium Sulfate 15 meq/Calcium Gluconate 15 meq/ Multivitamins 10 ml/Chromium/ Copper/Manganese/ Seleni/Zn 0.5 ml/ Insulin Human Regular 35 unit/ Total Parenteral N utrition/Amino Acids/Dextrose/ Fat Emulsion Intravenous 1,400 ml @ 58.333 mls/ hr TPN CONT IV Last administered on 08/07/19at 22:46; Start 08/07/19 at 22:00; Stop 08/08/19 at 21:59; Status DC Sodium Chloride 100 meq/Potassium Chloride 40 meq/ Magnesium Sulfate 20 meq/Calcium Gluconate 15 meq/ Multivitamins 10 ml/Chromium/ Copper/Manganese/ Seleni/Zn 0.5 ml/ Insulin Human Regular 35 unit/ Total Parenteral Nutrition/Amino Acids/Dextrose/ Fat Emulsion Intravenous 1,400 ml @ 58.333 mls/ hr TPN CONT IV Last administered on 08/08/19at 22:31; Start 08/08/19 at 22:00; Stop 08/09/19 at 21:59; Status DC Fentanyl Citrate (Fentanyl 2ml Vial) 50 mcg PRN Q2HR PRN IVP PAIN Last administered on 08/15/19at 13:32; Start 08/08/19 at 21:00; Stop 08/16/19 at 12:53; Status DC Fentanyl Citrate (Fentanyl 2ml Vial) 25 mcg PRN Q2HR PRN IVP PAIN; Start 08/08/19 at 21:00; Stop 08/16/19 at 12:54; Status DC Enoxaparin Sodium (Lovenox 100mg Syringe) 100 mg Q12HR SQ ; Start 08/09/19 at 21:00; Status UNV Amino Acids/ Glycerin/ Electrolytes 1,000 ml @ 75 mls/hr [id number] IV ; Start 08/08/19 at 21:15; Status UNV Sodium Chloride 1,000 ml @ 1,000 mls/hr Q1H PRN IV hypotension; Start 08/09/19 at 07:56; Stop 08/09/19 at 13:55; Status DC Albumin Human 200 ml @ 200 mls/hr 1X PRN PRN IV Hypotension Last administered on 08/09/19at 08:40; Start 08/09/19 at 08:00; Stop 08/09/19 at 13:59; Status DC Sodium Chloride 1,000 ml @ 400 mls/hr Q2H30M PRN IV PATENCY; Start 08/09/19 at 07:56; Stop 08/09/19 at 19:55; Status DC Info (PHARMACY MONITORING -- do not chart) 1 each PRN DAILY PRN MC SEE COMMENTS; Start 08/09/19 at 08:00; Status UNV Info (PHARMACY MONITORING -- do not chart) 1 each PRN DAILY PRN MC SEE COMMENTS; Start 08/09/19 at 08:00; Status UNV Daptomycin 430 mg/ Sodium Chloride 50 ml @ 100 mls/hr Q24H IV Last administered on 08/09/19at 12:35; Start 08/09/19 at 09:00; Stop 08/09/19 at 12:49; Status DC Sodium Chloride 100 meq/Potassium Chloride 40 meq/ Magnesium Sulfate 20 meq/Calcium Gluconate 15 meq/ Multivitamins 10 ml/Chromium/ Copper/Manganese/ Seleni/Zn 0.5 ml/ Insulin Human Regular 35 unit/ Total Parenteral Nutrition/Amino Acids/Dextrose/ Fat Emulsion Intravenous 1,400 ml @ 58.333 mls/ hr TPN CONT IV Last administered on 08/09/19at 21:26; Start 08/09/19 at 22:00; Stop 08/10/19 at 21:59; Status DC Daptomycin 430 mg/ Sodium Chloride 50 ml @ 100 mls/hr Q48H IV ; Start 08/11/19 at 09:00; Stop 08/10/19 at 11:55; Status DC Sodium Chloride 100 meq/Potassium Chloride 40 meq/ Magnesium Sulfate 20 meq/Calcium Gluconate 15 meq/ Multivitamins 10 ml/Chromium/ Copper/Manganese/ Seleni/Zn 0.5 ml/ Insulin Human Regular 35 unit/ Total Parenteral Nutrition/Amino Acids/Dextrose/ Fat Emulsion Intravenous 1,400 ml @ 58.333 mls/ hr TPN CONT IV Last administered on 08/10/19at 22:27; Start 08/10/19 at 22:00; Stop 08/11/19 at 21:59; Status DC Daptomycin 430 mg/ Sodium Chloride 50 ml @ 100 mls/hr Q24H IV Last administered on 08/12/19at 15:07; Start 08/10/19 at 13:00; Stop 08/13/19 at 13:15; Status DC Sodium Chloride 100 meq/Potassium Chloride 40 meq/ Magnesium Sulfate 20 meq/Calcium Gluconate 10 meq/ Multivitamins 10 ml/Chromium/ Copper/Manganese/ Seleni/Zn 0.5 ml/ Insulin Human Regular 35 unit/ Total Parenteral Nutrition/Amino Acids/Dextrose/ Fat Emulsion Intravenous 1,400 ml @ 58.333 mls/ hr TPN CONT IV Last administered on 08/12/19at 00:06; Start 08/11/19 at 22:00; Stop 08/12/19 at 21:59; Status DC Alteplase, Recombinant (Cathflo For Central Catheter Clearance) 1 mg 1X ONCE INT CAT Last administered on 08/12/19at 11:44; Start 08/12/19 at 10:45; Stop 08/12/19 at 10:46; Status DC Ondansetron HCl (Zofran) 4 mg PRN Q6HRS PRN IV NAUSEA/VOMITING; Start 08/15/19 at 07:00; Stop 08/16/19 at 06:59; Status DC Fentanyl Citrate (Fentanyl 2ml Vial) 25 mcg PRN Q5MIN PRN IV MILD PAIN 1-3; Start 08/15/19 at 07:00; Stop 08/16/19 at 06:59; Status DC Fentanyl Citrate (Fentanyl 2ml Vial) 50 mcg PRN Q5MIN PRN IV MODERATE TO SEVERE PAIN Last administered on 08/15/19at 10:17; Start 08/15/19 at 07:00; Stop 08/16/19 at 06:59; Status DC Ringer's Solution 1,000 ml @ 30 mls/hr Q24H IV ; Start 08/15/19 at 07:00; Stop 08/15/19 at 18:59; Status DC Lidocaine HCl (Xylocaine-Mpf 1% 2ml Vial) 2 ml PRN 1X PRN ID PRIOR TO IV START; Start 08/15/19 at 07:00; Stop 08/16/19 at 06:59; Status DC Prochlorperazine Edisylate (Compazine) 5 mg PACU PRN PRN IV NAUSEA, MRX1; Start 08/15/19 at 07:00; Stop 08/16/19 at 06:59; Status DC Sodium Acetate 50 meq/Potassium Acetate 55 meq/ Magnesium Sulfate 20 meq/Calcium Gluconate 10 meq/ Multivitamins 10 ml/Chromium/ Copper/Manganese/ Seleni/Zn 0.5 ml/ Insulin Human Regular 35 unit/ Total Parenteral Nutrition/Amino Acids/Dextrose/ Fat Emulsion Intravenous 1,400 ml @ 58.333 mls/ hr TPN CONT IV ; Start 08/12/19 at 22:00; Stop 08/12/19 at 14:15; Status DC Sodium Acetate 50 meq/Potassium Acetate 55 meq/ Magnesium Sulfate 20 meq/Calcium Gluconate 10 meq/ Multivitamins 10 ml/Chromium/ Copper/Manganese/ Seleni/Zn 0.5 ml/ Insulin Human Regular 35 unit/ Total Parenteral Nutrition/Amino Acids/Dextrose/ Fat Emulsion Intravenous 1,800 ml @ 75 mls/hr TPN CONT IV Last administered on 08/12/19at 22:38; Start 08/12/19 at 22:00; Stop 08/13/19 at 21:59; Status DC Sodium Chloride 1,000 ml @ 1,000 mls/hr Q1H PRN IV hypotension; Start 08/12/19 at 15:31; Stop 08/12/19 at 21:30; Status DC Diphenhydramine HCl (Benadryl) 25 mg 1X PRN PRN IV ITCHING; Start 08/12/19 at 15:45; Stop 08/13/19 at 15:44; Status DC Diphenhydramine HCl (Benadryl) 25 mg 1X PRN PRN IV ITCHING; Start 08/12/19 at 15:45; Stop 08/13/19 at 15:44; Status DC Sodium Chloride 1,000 ml @ 400 mls/hr Q2H30M PRN IV PATENCY; Start 08/12/19 at 15:31; Stop 08/13/19 at 03:30; Status DC Info (PHARMACY MONITORING -- do not chart) 1 each PRN DAILY PRN MC SEE COMMENTS; Start 08/12/19 at 15:45 Sodium Acetate 50 meq/Potassium Acetate 55 meq/ Magnesium Sulfate 20 meq/Calcium Gluconate 10 meq/ Multivitamins 10 ml/Chromium/ Copper/Manganese/ Seleni/Zn 0.5 ml/ Insulin Human Regular 35 unit/ Total Parenteral Nutrition/Amino Acids/Dextrose/ Fat Emulsion Intravenous 1,800 ml @ 75 mls/hr TPN CONT IV Last administered on 08/13/19at 22:03; Start 08/13/19 at 22:00; Stop 08/14/19 at 21:59; Status DC Daptomycin 430 mg/ Sodium Chloride 50 ml @ 100 mls/hr Q24H IV Last administered on 08/18/19at 13:00; Start 08/13/19 at 13:00; Stop 08/18/19 at 20:58; Status DC Heparin Sodium (Porcine) 1000 unit/Sodium Chloride 1,001 ml @ 1,001 mls/hr 1X ONCE IRR ; Start 08/15/19 at 06:00; Stop 08/15/19 at 06:59; Status DC Potassium Acetate 55 meq/Magnesium Sulfate 20 meq/ Calcium Gluconate 10 meq/ Multivitamins 10 ml/Chromium/ Copper/Manganese/ Seleni/Zn 0.5 ml/ Insulin Human Regular 35 unit/ Total Parenteral Nutrition/Amino Acids/Dextrose/ Fat Emulsion Intravenous 1,920 ml @ 80 mls/hr TPN CONT IV Last administered on 08/14/19at 22:10; Start 08/14/19 at 22:00; Stop 08/15/19 at 21:59; Status DC Dexamethasone Sodium Phosphate (Decadron) 4 mg STK-MED ONCE .ROUTE ; Start 08/15/19 at 10:56; Stop 08/15/19 at 10:57; Status DC Ondansetron HCl (Zofran) 4 mg STK-MED ONCE .ROUTE ; Start 08/15/19 at 10:56; Stop 08/15/19 at 10:57; Status DC Rocuronium Raton (Zemuron) 50 mg STK-MED ONCE .ROUTE ; Start 08/15/19 at 10:56; Stop 08/15/19 at 10:57; Status DC Fentanyl Citrate (Fentanyl 2ml Vial) 100 mcg STK-MED ONCE .ROUTE ; Start 08/15/19 at 10:56; Stop 08/15/19 at 10:57; Status DC Bupivacaine HCl/ Epinephrine Bitart (Sensorcain-Epi 0.5%-1:[id number] Mpf) 30 ml STK-MED ONCE .ROUTE Last administered on 08/15/19at 12:01; Start 08/15/19 at 10:58; Stop 08/15/19 at 10:58; Status DC Cellulose (Surgicel Hemostat 2x14) 1 each STK-MED ONCE .ROUTE ; Start 08/15/19 at 10:58; Stop 08/15/19 at 10:59; Status DC Iohexol (Omnipaque 300 Mg/ml) 50 ml STK-MED ONCE .ROUTE ; Start 08/15/19 at 10:58; Stop 08/15/19 at 10:59; Status DC Cellulose (Surgicel Hemostat 4x8) 1 each STK-MED ONCE .ROUTE ; Start 08/15/19 at 10:58; Stop 08/15/19 at 10:59; Status DC Bisacodyl (Dulcolax Supp) 10 mg STK-MED ONCE .ROUTE ; Start 08/15/19 at 10:59; Stop 08/15/19 at 10:59; Status DC Heparin Sodium (Porcine) 1000 unit/Sodium Chloride 1,001 ml @ 1,001 mls/hr 1X ONCE IRR ; Start 08/15/19 at 12:00; Stop 08/15/19 at 12:59; Status DC Propofol 20 ml @ As Directed STK-MED ONCE IV ; Start 08/15/19 at 11:05; Stop 08/15/19 at 11:05; Status DC Sevoflurane (Ultane) 90 ml STK-MED ONCE IH ; Start 08/15/19 at 11:05; Stop 08/15/19 at 11:05; Status DC Sevoflurane (Ultane) 60 ml STK-MED ONCE IH ; Start 08/15/19 at 12:26; Stop 08/15/19 at 12:27; Status DC Propofol 20 ml @ As Directed STK-MED ONCE IV ; Start 08/15/19 at 12:26; Stop 08/15/19 at 12:27; Status DC Phenylephrine HCl (PHENYLEPHRINE in 0.9% NACL PF) 1 mg STK-MED ONCE IV ; Start 08/15/19 at 12:34; Stop 08/15/19 at 12:34; Status DC Heparin Sodium (Porcine) (Heparin Sodium) 5,000 unit Q12HR SQ Last administered on 08/24/19at 20:57; Start 08/15/19 at 21:00; Stop 08/25/19 at 09:59; Status DC Sodium Chloride (Normal Saline Flush) 3 ml QSHIFT PRN IV AFTER MEDS AND BLOOD DRAWS; Start 08/15/19 at 13:45 Naloxone HCl (Narcan) 0.4 mg PRN Q2MIN PRN IV SEE INSTRUCTIONS; Start 08/15/19 at 13:45 Sodium Chloride 1,000 ml @ 25 mls/hr Q24H IV Last administered on 08/27/19at 02:30; Start 08/15/19 at 13:37 Naloxone HCl (Narcan) 0.4 mg PRN Q2MIN PRN IV SEE INSTRUCTIONS; Start 08/15/19 at 14:30; Status UNV Sodium Chloride 1,000 ml @ 25 mls/hr Q24H IV ; Start 08/15/19 at 14:30; Status UNV Hydromorphone HCl 30 ml @ 0 mls/hr CONT PRN PRN IV PER PROTOCOL Last administered on 08/20/19at 16:08; Start 08/15/19 at 14:30; Stop 08/22/19 at 08:55; Status DC Potassium Acetate 55 meq/Magnesium Sulfate 20 meq/ Calcium Gluconate 10 meq/ Multivitamins 10 ml/Chromium/ Copper/Manganese/ Seleni/Zn 0.5 ml/ Insulin Human Regular 35 unit/ Total Parenteral Nutrition/Amino Acids/Dextrose/ Fat Emulsion Intravenous 1,920 ml @ 80 mls/hr TPN CONT IV Last administered on 08/15/19at 22:01; Start 08/15/19 at 22:00; Stop 08/16/19 at 21:59; Status DC Bumetanide (Bumex) 2 mg [id number] IV Last administered on 08/19/19at 13:50; Start 08/16/19 at 14:00; Stop 08/20/19 at 14:10; Status DC Meropenem 1 gm/ Sodium Chloride 100 ml @ 200 mls/hr Q8HRS IV Last administered on 08/27/19at 05:44; Start 08/16/19 at 14:00 Potassium Acetate 55 meq/Magnesium Sulfate 20 meq/ Calcium Gluconate 10 meq/ Multivitamins 10 ml/Chromium/ Copper/Manganese/ Seleni/Zn 0.5 ml/ Insulin Human Regular 35 unit/ Total Parenteral Nutrition/Amino Acids/Dextrose/ Fat Emulsion Intravenous 1,920 ml @ 80 mls/hr TPN CONT IV Last administered on 08/16/19at 22:02; Start 08/16/19 at 22:00; Stop 08/17/19 at 21:59; Status DC Hydromorphone HCl (Dilaudid Standard SMOKING TOBACCO CUTTER OPERATOR) 12 mg STK-MED ONCE IV ; Start 08/15/19 at 14:35; Stop 08/16/19 at 13:53; Status DC Artificial Tears (Artificial Tears) 1 drop PRN Q15MIN PRN OU DRY EYE Last administered on 08/26/19at 22:00; Start 08/17/19 at 05:30 Hydromorphone HCl (Dilaudid Standard SMOKING TOBACCO CUTTER OPERATOR) 12 mg STK-MED ONCE IV ; Start 08/16/19 at 12:05; Stop 08/17/19 at 09:15; Status DC Potassium Acetate 65 meq/Magnesium Sulfate 20 meq/ Calcium Gluconate 10 meq/ Multivitamins 10 ml/Chromium/ Copper/Manganese/ Seleni/Zn 0.5 ml/ Insulin Human Regular 30 unit/ Total Parenteral Nutrition/Amino Acids/Dextrose/ Fat Emulsion Intravenous 1,920 ml @ 80 mls/hr TPN CONT IV Last administered on 08/17/19at 22:22; Start 08/17/19 at 22:00; Stop 08/18/19 at 21:59; Status DC Cyclobenzaprine HCl (Flexeril) 10 mg PRN Q6HRS PRN PO MUSCLE SPASMS; Start 08/18/19 at 10:45 Potassium Acetate 55 meq/Magnesium Sulfate 20 meq/ Calcium Gluconate 10 meq/ Multivitamins 10 ml/Chromium/ Copper/Manganese/ Seleni/Zn 0.5 ml/ Insulin Human Regular 30 unit/ Total Parenteral Nutrition/Amino Acids/Dextrose/ Fat Emulsion Intravenous 1,920 ml @ 80 mls/hr TPN CONT IV Last administered on 08/19/19at 01:00; Start 08/18/19 at 22:00; Stop 08/19/19 at 21:59; Status DC Magnesium Sulfate 50 ml @ 25 mls/hr 1X ONCE IV Last administered on 08/18/19at 17:18; Start 08/18/19 at 12:45; Stop 08/18/19 at 14:44; Status DC Potassium Chloride/Water 100 ml @ 100 mls/hr 1X ONCE IV Last administered on 08/19/19at 11:27; Start 08/19/19 at 12:00; Stop 08/19/19 at 12:59; Status DC Hydromorphone HCl (Dilaudid Standard SMOKING TOBACCO CUTTER OPERATOR) 12 mg STK-MED ONCE IV ; Start 08/17/19 at 10:50; Stop 08/19/19 at 11:02; Status DC Hydromorphone HCl (Dilaudid Standard SMOKING TOBACCO CUTTER OPERATOR) 12 mg STK-MED ONCE IV ; Start 08/18/19 at 13:47; Stop 08/19/19 at 11:03; Status DC Potassium Acetate 30 meq/Magnesium Sulfate 20 meq/ Calcium Gluconate 10 meq/ Multivitamins 10 ml/Chromium/ Copper/Manganese/ Seleni/Zn 0.5 ml/ Insulin Human Regular 30 unit/ Potassium Chloride 30 meq/ Total Parenteral Nutrition/Amino Acids/Dextrose/ Fat Emulsion Intravenous 1,920 ml @ 80 mls/hr TPN CONT IV Last administered on 08/19/19at 22:34; Start 08/19/19 at 22:00; Stop 08/20/19 at 21:59; Status DC Potassium Chloride/Water 100 ml @ 100 mls/hr Q1H IV Last administered on 08/20/19at 13:05; Start 08/20/19 at 07:00; Stop 08/20/19 at 10:59; Status DC Magnesium Sulfate 50 ml @ 25 mls/hr 1X ONCE IV Last administered on 08/20/19at 10:34; Start 08/20/19 at 10:30; Stop 08/20/19 at 12:29; Status DC Potassium Chloride 75 meq/ Magnesium Sulfate 20 meq/Calcium Gluconate 10 meq/ Multivitamins 10 ml/Chromium/ Copper/Manganese/ Seleni/Zn 0.5 ml/ Insulin Human Regular 30 unit/ Total Parenteral Nutrition/Amino Acids/Dextrose/ Fat Emulsion Intravenous 1,920 ml @ 80 mls/hr TPN CONT IV Last administered on 08/20/19at 21:51; Start 08/20/19 at 22:00; Stop 08/21/19 at 22:00; Status DC Potassium Chloride 75 meq/ Magnesium Sulfate 20 meq/Calcium Gluconate 10 meq/ Multivitamins 10 ml/Chromium/ Copper/Manganese/ Seleni/Zn 0.5 ml/ Insulin Human Regular 25 unit/ Total Parenteral Nutrition/Amino Acids/Dextrose/ Fat Emulsion Intravenous 1,920 ml @ 80 mls/hr TPN CONT IV Last administered on 08/21/19at 22:04; Start 08/21/19 at 22:00; Stop 08/22/19 at 21:59; Status DC Hydromorphone HCl (Dilaudid) 0.4 mg PRN Q4HRS PRN IVP PAIN Last administered on 08/22/19at 10:57; Start 08/22/19 at 09:00; Stop 08/22/19 at 18:59; Status DC Micafungin Sodium 100 mg/Dextrose 100 ml @ 100 mls/hr Q24H IV Last administered on 08/27/19at 11:25; Start 08/22/19 at 11:00 Daptomycin 485 mg/ Sodium Chloride 50 ml @ 100 mls/hr Q24H IV Last administered on 08/26/19at 11:29; Start 08/22/19 at 11:00 Potassium Chloride 75 meq/ Magnesium Sulfate 15 meq/Calcium Gluconate 8 meq/ Multivitamins 10 ml/Chromium/ Copper/Manganese/ Seleni/Zn 0.5 ml/ Insulin Human Regular 25 unit/ Total Parenteral Nutrition/Amino Acids/Dextrose/ Fat Emulsion Intravenous 1,920 ml @ 80 mls/hr TPN CONT IV Last administered on 08/22/19at 23:08; Start 08/22/19 at 22:00; Stop 08/23/19 at 21:59; Status DC Haloperidol Lactate (Haldol Inj) 3 mg 1X ONCE IVP Last administered on 08/22/19at 14:37; Start 08/22/19 at 14:30; Stop 08/22/19 at 14:31; Status DC Hydromorphone HCl (Dilaudid) 1 mg PRN Q4HRS PRN IVP PAIN Last administered on 08/27/19at 01:53; Start 08/22/19 at 19:00 Potassium Chloride 75 meq/ Magnesium Sulfate 15 meq/Calcium Gluconate 8 meq/ Multivitamins 10 ml/Chromium/ Copper/Manganese/ Seleni/Zn 0.5 ml/ Insulin Human Regular 20 unit/ Total Parenteral Nutrition/Amino Acids/Dextrose/ Fat Emulsion Intravenous 1,920 ml @ 80 mls/hr TPN CONT IV Last administered on 08/23/19at 22:10; Start 08/23/19 at 22:00; Stop 08/24/19 at 21:59; Status DC Lidocaine HCl (Buffered Lidocaine 1%) 3 ml STK-MED ONCE .ROUTE ; Start 08/24/19 at 11:31; Stop 08/24/19 at 11:31; Status DC Lidocaine HCl (Buffered Lidocaine 1%) 3 ml STK-MED ONCE .ROUTE ; Start 08/24/19 at 12:28; Stop 08/24/19 at 12:29; Status DC Lidocaine HCl (Buffered Lidocaine 1%) 6 ml 1X ONCE INJ Last administered on 08/24/19at 12:53; Start 08/24/19 at 12:45; Stop 08/24/19 at 12:46; Status DC Potassium Chloride 75 meq/ Magnesium Sulfate 15 meq/Calcium Gluconate 8 meq/ Multivitamins 10 ml/Chromium/ Copper/Manganese/ Seleni/Zn 0.5 ml/ Insulin Human Regular 20 unit/ Total Parenteral Nutrition/Amino Acids/Dextrose/ Fat Emulsion Intravenous 1,920 ml @ 80 mls/hr TPN CONT IV Last administered on 08/24/19at 22:00; Start 08/24/19 at 22:00; Stop 08/25/19 at 21:59; Status DC Potassium Chloride 75 meq/ Magnesium Sulfate 15 meq/Calcium Gluconate 8 meq/ Multivitamins 10 ml/Chromium/ Copper/Manganese/ Seleni/Zn 0.5 ml/ Insulin Human Regular 15 unit/ Total Parenteral Nutrition/Amino Acids/Dextrose/ Fat Emulsion Intravenous 1,920 ml @ 80 mls/hr TPN CONT IV Last administered on 08/25/19at 22:28; Start 08/25/19 at 22:00; Stop 08/26/19 at 21:59; Status DC Vecuronium Raton (Norcuron Bolus) 6 mg PRN Q6HRS PRN IV VENT ASYNCHRONY; Start 08/25/19 at 19:15; Stop 08/25/19 at 19:35; Status DC Bumetanide (Bumex) 2 mg 1X ONCE IV Last administered on 08/25/19at 22:09; Start 08/25/19 at 19:45; Stop 08/25/19 at 19:46; Status DC Lidocaine HCl (Buffered Lidocaine 1%) 3 ml STK-MED ONCE .ROUTE ; Start 08/26/19 at 07:59; Stop 08/26/19 at 07:59; Status DC Midazolam HCl (Versed) 5 mg STK-MED ONCE .ROUTE ; Start 08/26/19 at 08:36; Stop 08/26/19 at 08:36; Status DC Fentanyl Citrate (Fentanyl 5ml Vial) 250 mcg STK-MED ONCE .ROUTE ; Start 08/26/19 at 08:36; Stop 08/26/19 at 08:37; Status DC Lidocaine HCl (Buffered Lidocaine 1%) 3 ml 1X ONCE IJ Last administered on 08/26/19at 09:30; Start 08/26/19 at 09:15; Stop 08/26/19 at 09:16; Status DC Midazolam HCl (Versed) 5 mg 1X ONCE IV Last administered on 08/26/19at 09:30; Start 08/26/19 at 09:15; Stop 08/26/19 at 09:16; Status DC Fentanyl Citrate (Fentanyl 5ml Vial) 250 mcg 1X ONCE IV Last administered on 08/26/19at 09:30; Start 08/26/19 at 09:15; Stop 08/26/19 at 09:16; Status DC Bumetanide (Bumex) 2 mg DAILY IV Last administered on 08/27/19at 11:24; Start 08/26/19 at 10:00 Potassium Chloride 75 meq/ Magnesium Sulfate 15 meq/ Multivitamins 10 ml/Chromium/ Copper/Manganese/ Seleni/Zn 0.5 ml/ Insulin Human Regular 15 unit/ Total Parenteral Nutrition/Amino Acids/Dextrose/ Fat Emulsion Intravenous 1,920 ml @ 80 mls/hr TPN CONT IV Last administered on 08/26/19at 21:59; Start 08/26/19 at 22:00; Stop 08/27/19 at 21:59 Active Scripts Active Reported Bisoprolol Fumarate 5 Mg Tablet 10 Mg PO DAILY Vitals/I & O Vital Sign - Last 24 Hours 08/26/19 08/26/19 08/26/19 08/26/19 14:00 15:00 15:24 16:00 Pulse 80 110 Resp 32 36 38 B/P (MAP) 109/55 (73) 172/78 (109) Pulse Ox 98 100 30 O2 Delivery Tracheal Collar Tracheal Collar Tracheal Collar Trach Collar O2 Flow Rate 8.0 8.0 8.0 08/26/19 08/26/19 08/26/19 08/26/19 16:00 16:08 17:00 18:00 Temp 98.9 98.9 Pulse 104 95 98 Resp 32 32 37 32 B/P (MAP) 145/66 (92) 136/74 (94) 134/64 (87) Pulse Ox 98 38 97 98 O2 Delivery Tracheal Collar Tracheal Collar Tracheal Collar Tracheal Collar O2 Flow Rate 8.0 8.0 8.0 8.0 08/26/19 08/26/19 08/26/19 08/26/19 19:00 20:00 20:00 21:00 Temp 98.1 98.1 Pulse 97 105 107 Resp 34 35 34 B/P (MAP) 146/68 (94) 136/80 (98) 112/66 (81) Pulse Ox 98 99 100 O2 Delivery Tracheal Collar Trach Collar Tracheal Collar Tracheal Collar O2 Flow Rate 8.0 8.0 8.0 5/8/08/26/19 08/26/19 08/26/19 22:00 22:00 22:30 23:00 Pulse 120 119 Resp 45 44 38 32 B/P (MAP) 161/82 (108) 135/58 (83) Pulse Ox 100 100 92 100 O2 Delivery Tracheal Collar Tracheal Collar O2 Flow Rate 8.0 8.0 8.0 8.0 08/27/19 08/27/19 08/27/19 08/27/19 00:00 00:00 01:00 01:53 Temp 98.7 98.7 Pulse 126 132 Resp 32 32 37 B/P (MAP) 149/75 (99) 168/84 (112) Pulse Ox 95 92 92 O2 Delivery Tracheal Collar Trach Collar Tracheal Collar Tracheal Collar O2 Flow Rate 8.0 8.0 8.0 08/27/19 08/27/19 08/27/19 08/27/19 02:00 02:23 03:00 04:00 Temp 97.3 97.3 Pulse 130 131 127 Resp 37 36 37 33 B/P (MAP) 171/80 (110) 180/86 (117) 170/86 (114) Pulse Ox 93 92 92 92 O2 Delivery Tracheal Collar Tracheal Collar Tracheal Collar Tracheal Collar O2 Flow Rate 8.0 8.0 8.0 8.0 08/27/19 08/27/19 08/27/19 08/27/19 04:00 04:47 05:00 06:00 Pulse 99 96 Resp 37 27 B/P (MAP) 120/66 (84) 108/61 (77) Pulse Ox 99 97 100 O2 Delivery Trach Collar Ventilator Ventilator Ventilator 08/27/19 08/27/19 08/27/19 08/27/19 07:00 07:37 08:00 08:00 Temp 98.1 98.1 Pulse 96 96 Resp 27 27 B/P (MAP) 128/71 (90) 118/71 (87) Pulse Ox 100 100 100 O2 Delivery Ventilator Ventilator Ventilator Trach Collar 08/27/19 08/27/19 08/27/19 08/27/19 09:00 10:00 11:00 11:45 Pulse 96 96 96 Resp 27 27 27 B/P (MAP) 109/72 (84) 100/62 (75) 127/77 (94) Pulse Ox 100 100 100 99 O2 Delivery Ventilator Ventilator Ventilator Ventilator 08/27/19 12:00 O2 Delivery Trach Collar Intake and Output 08/26/19 08/26/19 08/27/19 15:00 23:00 07:00 Intake Total 290 ml 1161 ml 1693.6 ml Output Total 2900 ml 2050 ml 1365 ml Balance -2610 ml -889 ml 328.6 ml Hemodynamically unstable?: No Is patient in severe pain?: Yes Is NPO status required?: Yes MARY HILL MD August 27, 2019 13:39
--- NOTE | 2019-08-27 14:39 | RAD ---
EXAM: Abdomen, single view. HISTORY: Distention COMPARISON: 08/25/2019 FINDINGS: Frontal views of the abdomen are obtained. There are distended air-filled small bowel throughout the abdomen. These are similar or slightly increased in caliber compared to the prior exam. There is gas within the rectum. There is a nasogastric tube within the stomach. There are patent till drainage catheters overlying the abdomen. There is also a third drain within the lower abdomen terminating to the left of midline. IMPRESSION: 1. Stable to slight increased distended air-filled loops of bowel throughout the abdomen. The transition point is seen. Correlate for ileus. 2. Multiple surgical drains overlying the abdomen. Electronically signed by: Sherlyn Martinez MD (08/27/2019 2:36 PM) [facility]
--- NOTE | 2019-08-27 14:42 | RAD ---
EXAM: Chest, single view. HISTORY: Fistula. COMPARISON: 08/25/2019 FINDINGS: A frontal view of the chest is obtained. There is a tracheostomy device overlying the thoracic inlet. There is a nasogastric tube within the stomach. There is a right PICC with the tip in the superior cavoatrial junction or superior right atrium. There is stable diffuse central predominant infiltrate and moderate pleural effusions. The heart is normal in size. There is no pneumothorax. IMPRESSION: 1. Stable diffuse infiltrate and moderate pleural effusions. 2. Stable support lines and tubes. Electronically signed by: Sherlyn Martinez MD (08/27/2019 2:38 PM) [facility]
--- NOTE | 2019-08-27 16:19 | PDOC ---
PROGRESS NOTES Chief Complaint Chief Complaint Acute hypoxic Respiratory failure requiring mechanical ventilation (on vent since 07/10) Tracheostomy bilateral pleural effusions/pulm edema Sepsis Severe Acute gallstone pancreatitis (not a surgical candidate at this time) with necrosis Acute kidney failure now requiring dialysis Salpingitis Gallstones (Calculus of gallbladder with acute cholecystitis without obstruction) HTN Leukocytosis Hypoxia Uterine fibroid Intractable pain Intractable nausea Covid 19 negative. Acute on chronic anemia EEG: No seizure activity ESRD on HD Hyperglycemia Plan: Continue with supportive measures KUB and chest x ray will update review consultant discussed with pulmonary as well, no changes to her ventilatory support she continues with current setting. she seems quite agitated reassurance provided at bedside. History of Present Illness History of Present Illness Ms Diaz is a 48yo F w/ PMHx HTN, prediabetes who presented to the emergency room with complaints of abdominal pain on 07/04/2019. Found with Lipase 37103, AST 401, ALT 249, Bilirubin 1.4. CT abdomen confirms pancreatic inflammation, peripancreatic fluid and inflammatory changes around the pancreas consistent with pancreatitis. Cholelithiasis and 1.4cm uterine fibroid as well as possible left salpingitis. Admitted for further care GI, General surgery, ID, Pulm consulted. 07/04: PICC placed per IR. Renal US negative. Started on levophed. Repeat CT abdomen w/ necrosis; 07/05: Dialysis catheter per nephrology; 07/06: On BiPAP; 07/07: BiPAP, dialysis; 07/08: Overnight Tmax 101.7 , still on BiPAP FiO2 40%, still on low dose Levophed gtt, TPN initiated. On dialysis 07/24: Tracheostomy; 07/30: S/p tracheostomy on vent spontaneous respirations with 5 of pressure support 35% FiO2, rectal tube and a Lind, off pressors; 08/01:Still on vent via trach. Removed PICC and CVC LIJ and replaced. CT chest/abd/pelvis with bilateral pleural effusion and ascites. 08/02: Renal function stable. Still on vent. More interactive today. Miming wish for food. Plan discussed for thoracentesis/paracentesis with daughters today. They were under impression patient was doing worse due to a miscommunication which has been clarified over the phone. 4.3L removed. 08/04: Febrile overnight 101.8F. More interactive, still on vent. Asking for ice by miming; 08/05: Afebrile overnight. TMax last 24 hours 100.6F. Hb 7.1. Interactive when awake. 08/09: Transfusion 1u PRBC (6U total since admit) 08/10-08/13: TPN and precedex, vent. 08/14: Tmax 101F overnight. Hb 8.2. HD cath out since 08/11. Alert. On vent SIMV 35% FiO2. Surgery: ex-lap, no ronel or pancreatic necrosectomy 2/ profound inflammation. 08/15: Seen POD #1. Afebrile overnight. BUN 62. CBC WNL today.Remains on vent via trach, TPN. Able to point today and indicate she wishes her daughters and Jamaal to be involved in her care. 08/16: Hb 7.4, Na 151. Remains on vent via trach, TPN. off HD for now. Not tolerating trach shield well. 08/17: Negative US for UE DVT. More relaxed today. Has some increase in UOP. Tolerating vent well. She is requesting to eat and drink via writing. T max 100F 24 hours ago, but 101F at 1200. Right PICC placed. Speaking valve for half the day in [facility] 08/18: Na 153 today. Good UOP. Tmax 101F at 1200 on 08/17. She becomes a bit anxious and did not sleep much last night, wishes to try to sleep this morning 08/19: Able to speak well with speaking valve today. Na 153, K2.9, Mg 1.8, Cr 1. 100.4F axillary temp overnight. Asking for food. 08/20: Afebrile overnight. ABG with pH 7.27/75/123. Hb 7.1. Na 153. 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 She is saturating well and not requiring ventilation support, no acute events reported overnight seems to be slowly improving 5: Patient requiring transfusion of packed red blood cells due to anemia, no evidence of acute bleeding, appreciate GI financial services consultant recommendations 08/24: Patient required ventilatory support given that she desaturated, she is lying in bed in mild distress, case discussed with nursing staff, no evidence of bleeding, h an h noted. 08/25: Underwent IR procedure as follows BRIEF OPERATIVE NOTE Pre-Op Diagnosis Pancreatitis with pseudocysts, suspected infection Post-Op Diagnosis same Procedure Performed CT abdominal Drains x 3 Surgeon Tesfaye Anesthesia Type: Conscious Sedation Findings 3 abdominal drains, 14F, with turbid pancreatic fluid and necrotic debris in each. Complications No immediate Plan: vent support, wean if possible throughout the day Encourage activity as tolerated Monitor fever curve, no obvious source of infection, possibly some aspiration events, atelectasis will monitor for bleeding. 08/26: Patient today somewhat restless and having bilious secretions from ET tube, imaging studies ordered, discussed with financial services consultant. Pretty poor prognosis, hopefully is not a fistula, poor surgical candidate. Vitals Vitals Vital Signs Date Time Temp Pulse Resp B/P (MAP) Pulse Ox O2 Delivery O2 Flow Rate FiO2 08/27/19 15:30 97 Ventilator 08/27/19 11:00 96 27 127/77 (94) 08/27/19 08:00 98.1 98.1 08/27/19 04:00 8.0 Physical Exam Physical Exam GENERAL: Propped up in bed, appears weak, tired HEENT: oral cavity dry, NGT NECK: Trach/vent LUNGS: rhonchi HEART: S1, S2, regular ABDOMEN: Distended, hypoactive BS, tender, + drains : Lind (08/01) EXTREMITIES: Generalized edema, no cyanosis, SCDs bilaterally SKIN: Warm and dry. No generalized rash. 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 simple questions PICC(08/17) clean General: Alert, Oriented X3, Cooperative, No acute distress Heart: Regular rate, Normal S1, Normal S2, No murmurs, Gallops Lungs: Crackles Abdomen: Normal bowel sounds, Soft, No tenderness, No hepatosplenomegaly, No masses Extremities: No clubbing, No cyanosis, No edema, Normal pulses, No tenderness/swelling Skin: Other (mottling noted to extremities ) Labs LABS Laboratory Tests Test 08/26/19 18:13 08/27/19 00:18 08/27/19 06:00 08/27/19 13:34 Glucose (Fingerstick) 150 mg/dL (70-99) 159 mg/dL (70-99) 139 mg/dL (70-99) 182 mg/dL (70-99) Sodium Level 149 mmol/L (136-145) Potassium Level 3.9 mmol/L (3.5-5.1) Chloride Level 111 mmol/L (98-107) Carbon Dioxide Level 31 mmol/L (21-32) Anion Gap 7 (6-14) Blood Urea Nitrogen 33 mg/dL (7-20) Creatinine 0.8 mg/dL (0.6-1.0) Estimated GFR (Cockcroft-Gault) 76.2 Glucose Level 145 mg/dL (70-99) Calcium Level 8.7 mg/dL (8.5-10.1) Assessment and Plan Assessmemt and Plan Problems Medical Problems: (1) Acute pancreatitis Status: Acute (2) Cholelithiasis Status: Acute Comment Review of Relevant I have reviewed the following items kolby (where applicable) has been applied. Labs Laboratory Tests Test 08/25/19 17:57 08/26/19 00:26 08/26/19 05:45 08/26/19 05:46 Glucose (Fingerstick) 152 mg/dL (70-99) 134 mg/dL (70-99) 142 mg/dL (70-99) White Blood Count 10.4 x10^3/uL (4.0-11.0) Red Blood Count 2.69 x10^6/uL (3.50-5.40) Hemoglobin 7.8 g/dL (12.0-15.5) Hematocrit 24.3 % (36.0-47.0) Mean Corpuscular Volume 91 fL (79-100) Mean Corpuscular Hemoglobin 29 pg (25-35) Mean Corpuscular Hemoglobin Concent 32 g/dL (31-37) Red Cell Distribution Width 17.5 % (11.5-14.5) Platelet Count 408 x10^3/uL (140-400) Neutrophils (%) (Auto) 78 % (31-73) Lymphocytes (%) (Auto) 15 % (24-48) Monocytes (%) (Auto) 5 % (0-9) Eosinophils (%) (Auto) 2 % (0-3) Basophils (%) (Auto) 0 % (0-3) Neutrophils # (Auto) 8.1 x10^3/uL (1.8-7.7) Lymphocytes # (Auto) 1.5 x10^3/uL (1.0-4.8) Monocytes # (Auto) 0.5 x10^3/uL (0.0-1.1) Eosinophils # (Auto) 0.2 x10^3/uL (0.0-0.7) Basophils # (Auto) 0.0 x10^3/uL (0.0-0.2) Sodium Level 149 mmol/L (136-145) Potassium Level 4.0 mmol/L (3.5-5.1) Chloride Level 112 mmol/L (98-107) Carbon Dioxide Level 31 mmol/L (21-32) Anion Gap 6 (6-14) Blood Urea Nitrogen 37 mg/dL (7-20) Creatinine 0.8 mg/dL (0.6-1.0) Estimated GFR (Cockcroft-Gault) 76.2 BUN/Creatinine Ratio 46 (6-20) Glucose Level 156 mg/dL (70-99) Calcium Level 8.9 mg/dL (8.5-10.1) Total Bilirubin 0.5 mg/dL (0.2-1.0) Aspartate Amino Transf (AST/SGOT) 42 U/L (15-37) Alanine Aminotransferase (ALT/SGPT) 39 U/L (14-59) Alkaline Phosphatase 91 U/L (46-116) Total Protein 5.8 g/dL (6.4-8.2) Albumin 1.7 g/dL (3.4-5.0) Albumin/Globulin Ratio 0.4 (1.0-1.7) Triglycerides Level 199 mg/dL (0-150) Test 08/26/19 12:36 08/26/19 18:13 08/27/19 00:18 08/27/19 06:00 Glucose (Fingerstick) 151 mg/dL (70-99) 150 mg/dL (70-99) 159 mg/dL (70-99) 139 mg/dL (70-99) Sodium Level 149 mmol/L (136-145) Potassium Level 3.9 mmol/L (3.5-5.1) Chloride Level 111 mmol/L (98-107) Carbon Dioxide Level 31 mmol/L (21-32) Anion Gap 7 (6-14) Blood Urea Nitrogen 33 mg/dL (7-20) Creatinine 0.8 mg/dL (0.6-1.0) Estimated GFR (Cockcroft-Gault) 76.2 Glucose Level 145 mg/dL (70-99) Calcium Level 8.7 mg/dL (8.5-10.1) Test 08/27/19 13:34 Glucose (Fingerstick) 182 mg/dL (70-99) Laboratory Tests Test 08/26/19 18:13 08/27/19 00:18 08/27/19 06:00 08/27/19 13:34 Glucose (Fingerstick) 150 mg/dL (70-99) 159 mg/dL (70-99) 139 mg/dL (70-99) 182 mg/dL (70-99) Sodium Level 149 mmol/L (136-145) Potassium Level 3.9 mmol/L (3.5-5.1) Chloride Level 111 mmol/L (98-107) Carbon Dioxide Level 31 mmol/L (21-32) Anion Gap 7 (6-14) Blood Urea Nitrogen 33 mg/dL (7-20) Creatinine 0.8 mg/dL (0.6-1.0) Estimated GFR (Cockcroft-Gault) 76.2 Glucose Level 145 mg/dL (70-99) Calcium Level 8.7 mg/dL (8.5-10.1) Microbiology 08/24/19 Aerobic and Anaerobic Culture, Resulted Pending 08/24/19 Anaerobic Culture Result 1 (ALEXANDRA), Resulted Pending 08/24/19 Aerobic Culture, Resulted Pending 08/24/19 Aerobic Culture Result 1 (ALEXANDRA), Resulted Pending 08/24/19 Gram Stain - Final, Resulted 08/24/19 Gram Stain Result 1 (ALEXANDRA) - Final, Resulted 08/24/19 Gram Stain Result 2 (ALEXANDRA) - Final, Resulted 08/22/19 Blood Culture - Final, Complete NO GROWTH AFTER 5 DAYS 08/18/19 Aerobic Culture - Final, Complete 08/18/19 Aerobic Culture Result 1 (ALEXANDRA) - Final, Complete 08/18/19 Gram Stain - Final, Complete 08/18/19 Gram Stain Result 1 (ALEXANDRA) - Final, Complete 08/18/19 Gram Stain Result 2 (ALEXANDRA) - Final, Complete 07/31/19 Urine Culture - Final, Complete 07/31/19 Urine Culture Result 1 (ALEXANDRA) - Final, Complete Medications Current Medications Sodium Chloride 1,000 ml @ 1,000 mls/hr Q1H IV Last administered on 07/04/19at 03:00; Start 07/04/19 at 03:00; Stop 07/04/19 at 03:59; Status DC Ondansetron HCl (Zofran) 4 mg 1X ONCE IVP Last administered on 07/04/19at 03:27; Start 07/04/19 at 03:00; Stop 07/04/19 at 03:01; Status DC Morphine Sulfate (Morphine Sulfate) 4 mg 1X ONCE IV ; Start 07/04/19 at 03:00; Stop 07/04/19 at 03:01; Status Cancel Ketorolac Tromethamine (Toradol 30mg Vial) 30 mg 1X ONCE IV Last administered on 07/04/19at 02:54; Start 07/04/19 at 03:00; Stop 07/04/19 at 03:01; Status DC Fentanyl Citrate (Fentanyl 2ml Vial) 25 mcg 1X ONCE IVP Last administered on 07/04/19at 03:23; Start 07/04/19 at 03:30; Stop 07/04/19 at 03:31; Status DC Fentanyl Citrate (Fentanyl 2ml Vial) 100 mcg STK-MED ONCE .ROUTE ; Start 06/18 10/07 at 03:18; Stop 07/04/19 at 03:18; Status DC Iohexol (Omnipaque 350 Mg/ml) 90 ml 1X ONCE IV Last administered on 07/04/19at 03:25; Start 07/04/19 at 03:30; Stop 07/04/19 at 03:31; Status DC Info (CONTRAST GIVEN -- Rx MONITORING) 1 each PRN DAILY PRN MC SEE COMMENTS; Start 07/04/19 at 03:30; Stop 07/06/19 at 03:29; Status DC Hydromorphone HCl (Dilaudid) 0.5 mg 1X ONCE IV Last administered on 07/04/19at 03:55; Start 07/04/19 at 04:30; Stop 07/04/19 at 04:32; Status DC Ondansetron HCl (Zofran) 4 mg PRN Q8HRS PRN IV NAUSEA/VOMITING 1ST CHOICE; Start 07/04/19 at 05:00; Stop 07/04/19 at 09:27; Status DC Morphine Sulfate (Morphine Sulfate) 2 mg PRN Q2HR PRN IV SEVERE PAIN 7-10 Last administered on 07/05/19at 12:26; Start 07/04/19 at 05:00; Stop 07/05/19 at 14:15; Status DC Sodium Chloride 1,000 ml @ 125 mls/hr Q8H IV Last administered on 07/04/19at 20:56; Start 07/04/19 at 05:00; Stop 07/05/19 at 04:59; Status DC Hydromorphone HCl (Dilaudid) 0.5 mg PRN Q3HRS PRN IV SEVERE PAIN 7-10 Last administered on 07/05/19at 10:06; Start 07/04/19 at 05:00; Stop 07/05/19 at 12:01; Status DC Piperacillin Sod/ Tazobactam Sod 4.5 gm/Sodium Chloride 100 ml @ 200 mls/hr 1X ONCE IV Last administered on 07/04/19at 05:44; Start 07/04/19 at 06:00; Stop 07/04/19 at 06:29; Status DC Ondansetron HCl (Zofran) 4 mg PRN Q4HRS PRN IV NAUSEA/VOMITING 1ST CHOICE Last administered on 08/27/19at 07:55; Start 07/04/19 at 09:30 Insulin Human Lispro (HumaLOG) 0-9 UNITS Q6HRS SQ Last administered on 08/27/19at 13:36; Start 07/04/19 at 09:30 Dextrose (Dextrose 50%-Water Syringe) 12.5 gm PRN Q15MIN PRN IV SEE COMMENTS; Start 07/04/19 at 09:30 Pantoprazole Sodium (PROTONIX VIAL for IV PUSH) 40 mg DAILYAC IVP Last administered on 08/27/19at 07:55; Start 07/04/19 at 11:30 Prochlorperazine Edisylate (Compazine) 10 mg PRN Q6HRS PRN IV NAUSEA/VOMITING, 2nd CHOICE Last administered on 08/27/19at 13:25; Start 07/04/19 at 17:45 Atenolol (Tenormin) 100 mg DAILY PO ; Start 07/05/19 at 09:00; Stop 07/04/19 at 20:08; Status DC Metoprolol Tartrate (Lopressor Vial) 2.5 mg Q6HRS IVP Last administered on 07/05/19at 05:51; Start 07/04/19 at 20:15; Stop 07/05/19 at 10:02; Status DC Metoprolol Tartrate (Lopressor Vial) 5 mg Q6HRS IVP Last administered on 07/14/19at 00:12; Start 07/05/19 at 10:15; Stop 07/16/19 at 08:48; Status DC Hydromorphone HCl (Dilaudid) 1 mg PRN Q3HRS PRN IV SEVERE PAIN 7-10 Last administered on 07/11/19at 05:13; Start 07/05/19 at 12:00; Stop 07/19/19 at 00:25; Status DC Lidocaine HCl (Buffered Lidocaine 1%) 3 ml STK-MED ONCE .ROUTE ; Start 07/05/19 at 12:55; Stop 07/05/19 at 12:56; Status DC Albumin Human 500 ml @ 125 mls/hr 1X ONCE IV Last administered on 07/05/19at 14:33; Start 07/05/19 at 14:30; Stop 07/05/19 at 18:32; Status DC Norepinephrine Bitartrate 8 mg/ Dextrose 258 ml @ 17.299 mls/ hr CONT PRN IV PER PROTOCOL Last administered on 08/02/19at 12:48; Start 07/05/19 at 15:30; Stop 08/05/19 at 09:19; Status DC Sodium Chloride 1,000 ml @ 125 mls/hr Q8H IV Last administered on 07/05/19at 21:04; Start 07/05/19 at 16:00; Stop 07/06/19 at 02:42; Status DC Albumin Human 500 ml @ 125 mls/hr PRN BID PRN IV After every 2L NSS & BP < 90mm Last administered on 07/20/19at 14:21; Start 07/05/19 at 16:00 Iohexol (Omnipaque 300 Mg/ml) 60 ml 1X ONCE IV Last administered on 07/05/19at 17:20; Start 07/05/19 at 17:00; Stop 07/05/19 at 17:01; Status DC Info (CONTRAST GIVEN -- Rx MONITORING) 1 each PRN DAILY PRN MC SEE COMMENTS; Start 07/05/19 at 17:00; Stop 07/07/19 at 16:59; Status DC Meropenem 1 gm/ Sodium Chloride 100 ml @ 200 mls/hr Q8HRS IV Last administered on 07/06/19at 05:45; Start 07/05/19 at 20:00; Stop 07/06/19 at 08:48; Status DC Furosemide (Lasix) 40 mg 1X ONCE IVP Last administered on 07/05/19at 22:12; Start 07/05/19 at 22:30; Stop 07/05/19 at 22:31; Status DC Calcium Chloride 1000 mg/Sodium Chloride 110 ml @ 220 mls/hr 1X ONCE IV Last administered on 07/05/19at 22:11; Start 07/05/19 at 22:30; Stop 07/05/19 at 22:59; Status DC Albuterol Sulfate (Ventolin Neb Soln) 2.5 mg 1X ONCE NEB Last administered on 07/06/19at 00:56; Start 07/05/19 at 22:30; Stop 07/05/19 at 22:31; Status DC Insulin Human Regular (HumuLIN R VIAL) 5 unit 1X ONCE IV Last administered on 07/05/19at 22:14; Start 07/05/19 at 22:30; Stop 07/05/19 at 22:31; Status DC Magnesium Sulfate 50 ml @ 25 mls/hr 1X ONCE IV Last administered on 07/06/19at 02:57; Start 07/06/19 at 03:00; Stop 07/06/19 at 04:59; Status DC Calcium Gluconate 1000 mg/Sodium Chloride 110 ml @ 220 mls/hr 1X ONCE IV Last administered on 07/06/19at 02:46; Start 07/06/19 at 03:00; Stop 07/06/19 at 03:29; Status DC Sodium Chloride 1,000 ml @ 200 mls/hr Q5H IV Last administered on 07/06/19at 02:46; Start 07/06/19 at 03:00; Stop 07/06/19 at 10:21; Status DC Calcium Gluconate 1000 mg/Sodium Chloride 110 ml @ 220 mls/hr 1X ONCE IV Last administered on 07/06/19at 03:21; Start 07/06/19 at 03:30; Stop 07/06/19 at 03:59; Status DC Sodium Bicarbonate 50 meq/Sodium Chloride 1,050 ml @ 75 mls/hr Q14H IV Last administered on 07/10/19at 21:10; Start 07/06/19 at 07:30; Stop 07/11/19 at 10:28; Status DC Calcium Gluconate 2000 mg/Sodium Chloride 120 ml @ 220 mls/hr 1X ONCE IV Last administered on 07/06/19at 09:05; Start 07/06/19 at 07:30; Stop 07/06/19 at 08:02; Status DC Lidocaine HCl (Xylocaine-Mpf 1% 2ml Vial) 2 ml STK-MED ONCE .ROUTE ; Start 06/18 12/07 at 08:47; Stop 07/06/19 at 08:47; Status DC Meropenem 500 mg/ Sodium Chloride 50 ml @ 100 mls/hr Q12HR IV Last administe red on 07/11/19at 21:01; Start 07/06/19 at 18:00; Stop 07/12/19 at 07:58; Status DC Lidocaine HCl (Buffered Lidocaine 1%) 3 ml STK-MED ONCE .ROUTE ; Start 07/06/19 at 09:46; Stop 07/06/19 at 09:46; Status DC Lidocaine HCl (Buffered Lidocaine 1%) 6 ml 1X ONCE INJ Last administered on 07/06/19at 10:26; Start 07/06/19 at 10:15; Stop 07/06/19 at 10:16; Status DC Info (Tpn Per Pharmacy) 1 each PRN DAILY PRN MC SEE COMMENTS Last administered on 08/27/19at 13:28; Start 07/06/19 at 12:00 Sodium Chloride 1,000 ml @ 1,000 mls/hr Q1H PRN IV hypotension; Start 07/06/19 at 12:07; Stop 07/06/19 at 18:06; Status DC Diphenhydramine HCl (Benadryl) 25 mg 1X PRN PRN IV ITCHING; Start 07/06/19 at 12:15; Stop 07/07/19 at 12:14; Status DC Diphenhydramine HCl (Benadryl) 25 mg 1X PRN PRN IV ITCHING; Start 07/06/19 at 12:15; Stop 07/07/19 at 12:14; Status DC Sodium Chloride 1,000 ml @ 400 mls/hr Q2H30M PRN IV PATENCY; Start 07/06/19 at 12:07; Stop 07/07/19 at 00:06; Status DC Info (PHARMACY MONITORING -- do not chart) 1 each PRN DAILY PRN MC SEE COMMENTS; Start 07/06/19 at 12:15; Stop 07/08/19 at 08:13; Status DC Sodium Chloride 90 meq/Calcium Gluconate 10 meq/ Multivitamins 10 ml/Chromium/ Copper/Manganese/ Seleni/Zn 1 ml/ Total Parenteral Nutrition/Amino Acids/Dextrose/ Fat Emulsion Intravenous 55.005 ml @ 2.292 mls/hr TPN CONT IV ; Start 07/06/19 at 22:00; Stop 07/06/19 at 12:33; Status DC Info (Tpn Per Pharmacy) 1 each PRN DAILY PRN MC SEE COMMENTS; Start 07/06/19 at 12:30; Status UNV Sodium Chloride 90 meq/Calcium Gluconate 10 meq/ Multivitamins 10 ml/Chromium/ Copper/Manganese/ Seleni/Zn 0.5 ml/ Total Parenteral Nutrition/Amino Acids/Dext amarilis/ Fat Emulsion Intravenous 1,512 ml @ 63 mls/hr TPN CONT IV Last administered on 07/06/19at 22:06; Start 07/06/19 at 22:00; Stop 07/07/19 at 21:59; Status DC Calcium Carbonate/ Glycine (Tums) 500 mg PRN AFTMEALHC PRN PO INDIGESTION; Start 07/06/19 at 17:45 Calcium Gluconate (Calcium Gluconate) 2,000 mg 1X ONCE IVP Last administered on 07/07/19at 02:19; Start 07/07/19 at 02:15; Stop 07/07/19 at 02:16; Status DC Calcium Chloride 3000 mg/Sodium Chloride 1,030 ml @ 50 mls/hr [id number] IV Last administered on 07/09/19at 02:17; Start 07/07/19 at 08:00; Stop 07/09/19 at 15:23; Status DC Lorazepam (Ativan Inj) 1 mg PRN Q4HRS PRN IVP ANXIETY / AGITATION, 2nd choic Last administered on 08/05/19at 03:51; Start 07/07/19 at 09:00; Stop 08/05/19 at 09:19; Status DC Sodium Chloride 1,000 ml @ 1,000 mls/hr Q1H PRN IV hypotension; Start 07/07/19 at 08:56; Stop 07/07/19 at 14:55; Status DC Albumin Human 200 ml @ 200 mls/hr 1X PRN PRN IV Hypotension; Start 07/07/19 at 09:00; Stop 07/07/19 at 14:59; Status DC Diphenhydramine HCl (Benadryl) 25 mg 1X PRN PRN IV ITCHING; Start 07/07/19 at 09:00; Stop 07/08/19 at 08:59; Status DC Diphenhydramine HCl (Benadryl) 25 mg 1X PRN PRN IV ITCHING; Start 07/07/19 at 09:00; Stop 07/08/19 at 08:59; Status DC Sodium Chloride 1,000 ml @ 400 mls/hr Q2H30M PRN IV PATENCY; Start 07/07/19 at 08:56; Stop 07/07/19 at 20:55; Status DC Info (PHARMACY MONITORING -- do not chart) 1 each PRN DAILY PRN MC SEE COMMENTS; Start 07/07/19 at 09:00; Status UNV Info (PHARMACY MONITORING -- do not chart) 1 each PRN DAILY PRN MC SEE COMMENTS; Start 07/07/19 at 09:00; Stop 07/08/19 at 08:13; Status DC Digoxin (Lanoxin) 500 mcg 1X ONCE IV Last administered on 07/07/19at 10:04; Start 07/07/19 at 10:00; Stop 07/07/19 at 10:01; Status DC Digoxin (Lanoxin) 125 mcg 1X ONCE IV Last administered on 07/07/19at 17:10; Start 07/07/19 at 18:00; Stop 07/07/19 at 18:01; Status DC Magnesium Sulfate 100 ml @ 25 mls/hr 1X ONCE IV Last administered on 07/07/19at 12:48; Start 07/07/19 at 13:00; Stop 07/07/19 at 16:59; Status DC Sodium Chloride 90 meq/Magnesium Sulfate 10 meq/ Calcium Gluconate 20 meq/ Multivitamins 10 ml/Chromium/ Copper/Manganese/ Seleni/Zn 0.5 ml/ Total Parenteral Nutrition/Amino Acids/Dextrose/ Fat Emulsion Intravenous 1,512 ml @ 63 mls/hr TPN CONT IV Last administered on 07/07/19at 22:25; Start 07/07/19 at 22:00; Stop 07/08/19 at 21:59; Status DC Sodium Chloride 1,000 ml @ 1,000 mls/hr Q1H PRN IV hypotension; Start 07/08/19 at 08:05; Stop 07/08/19 at 14:04; Status DC Albumin Human 200 ml @ 200 mls/hr 1X ONCE IV Last administered on 07/08/19at 08:57; Start 07/08/19 at 08:15; Stop 07/08/19 at 09:14; Status DC Diphenhydramine HCl (Benadryl) 25 mg 1X PRN PRN IV ITCHING; Start 07/08/19 at 08:15; Stop 07/09/19 at 08:14; Status DC Diphenhydramine HCl (Benadryl) 25 mg 1X PRN PRN IV ITCHING; Start 07/08/19 at 08:15; Stop 07/09/19 at 08:14; Status DC Sodium Chloride 1,000 ml @ 400 mls/hr Q2H30M PRN IV PATENCY; Start 07/08/19 at 08:05; Stop 07/08/19 at 20:04; Status DC Info (PHARMACY MONITORING -- do not chart) 1 each PRN DAILY PRN MC SEE COMMENTS; Start 07/08/19 at 08:15; Stop 07/12/19 at 07:57; Status DC Sodium Chloride 90 meq/Potassium Chloride 15 meq/ Potassium Phosphate 10 mmol/ Magnesium Sulfate 10 meq/Calcium Gluconate 20 meq/ Multivitamins 10 ml/Chromium/ Copper/Manganese/ Seleni/Zn 0.5 ml/ Total Parenteral Nutrition/Amino Acids/Dextrose/ Fat Emulsion Intravenous 1,512 ml @ 63 mls/hr TPN CONT IV Last administered on 07/08/19at 21:01; Start 07/08/19 at 22:00; Stop 07/09/19 at 21:59; Status DC Potassium Chloride/Water 100 ml @ 100 mls/hr 1X ONCE IV Last administered on 07/08/19at 14:09; Start 07/08/19 at 14:00; Stop 07/08/19 at 14:59; Status DC Benzocaine (Hurricaine One) 1 spray 1X ONCE MM Last administered on 07/08/19at 16:38; Start 07/08/19 at 14:30; Stop 07/08/19 at 14:31; Status DC Lidocaine HCl (Glydo (Lidocaine) Jelly) 1 ramu 1X ONCE MM Last administered on 07/08/19at 16:38; Start 07/08/19 at 14:30; Stop 07/08/19 at 14:31; Status DC Linezolid/Dextrose 300 ml @ 300 mls/hr Q12HR IV Last administered on 07/14/19at 21:04; Start 07/08/19 at 20:00; Stop 07/15/19 at 07:50; Status DC Acetaminophen (Tylenol) 650 mg PRN Q6HRS PRN PO MILD PAIN / TEMP; Start 07/09/19 at 03:30; Stop 07/09/19 at 03:36; Status DC Acetaminophen (Tylenol) 650 mg PRN Q6HRS PRN PEG MILD PAIN / TEMP Last administered on 08/04/19at 19:56; Start 07/09/19 at 03:36 Sodium Chloride 1,000 ml @ 1,000 mls/hr Q1H PRN IV hypotension; Start 07/09/19 at 07:50; Stop 07/09/19 at 13:49; Status DC Albumin Human 200 ml @ 200 mls/hr 1X PRN PRN IV Hypotension; Start 07/09/19 at 08:00; Stop 07/09/19 at 13:59; Status DC Sodium Chloride (Normal Saline Flush) 10 ml 1X PRN PRN IV AP catheter pack; Start 07/09/19 at 08:00; Stop 07/10/19 at 07:59; Status DC Sodium Chloride (Normal Saline Flush) 10 ml 1X PRN PRN IV [employer] catheter pack; Start 07/09/19 at 08:00; Stop 07/10/19 at 07:59; Status DC Sodium Chloride 1,000 ml @ 400 mls/hr Q2H30M PRN IV PATENCY; Start 07/09/19 at 07:50; Stop 07/09/19 at 19:49; Status DC Info (PHARMACY MONITORING -- do not chart) 1 each PRN DAILY PRN MC SEE COMMENTS; Start 07/09/19 at 08:00; Status UNV Info (PHARMACY MONITORING -- do not chart) 1 each PRN DAILY PRN MC SEE COMMENTS; Start 07/09/19 at 08:00; Stop 07/11/19 at 08:25; Status DC Sodium Chloride 90 meq/Potassium Chloride 15 meq/ Potassium Phosphate 10 mmol/ Magnesium Sulfate 10 meq/Calcium Gluconate 20 meq/ Multivitamins 10 ml/Chromium/ Copper/Manganese/ Seleni/Zn 0.5 ml/ Total Parenteral Nutrition/Amino Acids/Dextrose/ Fat Emulsion Intravenous 1,512 ml @ 63 mls/hr TPN CONT IV Last administered on 07/09/19at 20:57; Start 07/09/19 at 22:00; Stop 07/10/19 at 21:59; Status DC Sodium Chloride 90 meq/Potassium Chloride 15 meq/ Potassium Phosphate 15 mmol/ Magnesium Sulfate 10 meq/Calcium Gluconate 20 meq/ Multivitamins 10 ml/Chromium/ Copper/Manganese/ Seleni/Zn 0.5 ml/ Total Parenteral Nutrition/Amino Acids/Dextrose/ Fat Emulsion Intravenous 1,512 ml @ 63 mls/hr TPN CONT IV ; Start 07/10/19 at 22:00; Stop 07/10/19 at 14:16; Status DC Sodium Chloride 90 meq/Potassium Chloride 15 meq/ Potassium Phosphate 15 mmol/ Magnesium Sulfate 10 meq/Calcium Gluconate 20 meq/ Multivitamins 10 ml/Chromium/ Copper/Manganese/ Seleni/Zn 0.5 ml/ Total Parenteral Nutrition/Amino Acids/Dextrose/ Fat Emulsion Intravenous 1,200 ml @ 50 mls/hr TPN CONT IV ; Start 07/10/19 at 22:00; Stop 07/10/19 at 14:17; Status DC Sodium Chloride 90 meq/Potassium Chloride 15 meq/ Potassium Phosphate 10 mmol/ Magnesium Sulfate 10 meq/Calcium Gluconate 20 meq/ Multivitamins 10 ml/Chromium/ Copper/Manganese/ Seleni/Zn 0.5 ml/ Total Parenteral Nutrition/Amino Acids/Dextrose/ Fat Emulsion Intravenous 1,200 ml @ 50 mls/hr TPN CONT IV Last administered on 07/10/19at 23:29; Start 07/10/19 at 22:00; Stop 07/11/19 at 21:59; Status DC Sodium Chloride 1,000 ml @ 1,000 mls/hr Q1H PRN IV hypotension; Start 07/11/19 at 07:28; Stop 07/11/19 at 13:27; Status DC Albumin Human 200 ml @ 200 mls/hr 1X ONCE IV Last administered on 07/11/19at 08:51; Start 07/11/19 at 07:30; Stop 07/11/19 at 08:29; Status DC Diphenhydramine HCl (Benadryl) 25 mg 1X PRN PRN IV ITCHING; Start 07/11/19 at 07:30; Stop 07/12/19 at 07:29; Status DC Diphenhydramine HCl (Benadryl) 25 mg 1X PRN PRN IV ITCHING; Start 07/11/19 at 07:30; Stop 07/12/19 at 07:29; Status DC Sodium Chloride 1,000 ml @ 400 mls/hr Q2H30M PRN IV PATENCY; Start 07/11/19 at 07:28; Stop 07/11/19 at 19:27; Status DC Info (PHARMACY MONITORING -- do not chart) 1 each PRN DAILY PRN MC SEE COMMENTS; Start 07/11/19 at 07:30; Stop 07/22/19 at 13:01; Status DC Metronidazole 100 ml @ 100 mls/hr Q6HRS IV Last administered on 07/27/19at 06:26; Start 07/11/19 at 08:30; Stop 07/27/19 at 09:58; Status DC Micafungin Sodium 100 mg/Dextrose 100 ml @ 100 mls/hr Q24H IV Last administered on 08/18/19at 08:18; Start 07/11/19 at 09:00; Stop 08/18/19 at 20:58; Status DC Propofol 0 ml @ As Directed STK-MED ONCE IV ; Start 07/11/19 at 07:53; Stop 07/11/19 at 07:53; Status DC Etomidate (Amidate) 20 mg STK-MED ONCE IV ; Start 07/11/19 at 07:53; Stop 07/11/19 at 07:54; Status DC Midazolam HCl (Versed) 5 mg STK-MED ONCE .ROUTE ; Start 07/11/19 at 07:57; Stop 07/11/19 at 07:57; Status DC Fentanyl Citrate 30 ml @ 0 mls/hr CONT PRN IV SEE PROTOCOL Last administered on 08/05/19at 06:12; Start 07/11/19 at 08:15; Stop 08/05/19 at 09:19; Status DC Artificial Tears (Artificial Tears) 1 drop PRN Q1HR PRN OU DRY EYE, 1st choice; Start 07/11/19 at 08:15; Stop 08/17/19 at 05:31; Status DC Midazolam HCl 50 mg/Sodium Chloride 50 ml @ 0 mls/hr CONT PRN IV SEE PROTOCOL Last administered on 07/14/19at 22:39; Start 07/11/19 at 08:15; Stop 07/16/19 at 15:59; Status DC Etomidate (Amidate) 8 mg 1X ONCE IV Last administered on 07/11/19at 08:33; Start 07/11/19 at 08:30; Stop 07/11/19 at 08:31; Status DC Succinylcholine Chloride (Anectine) 120 mg 1X ONCE IV Last administered on 07/11/19at 08:34; Start 07/11/19 at 08:30; Stop 07/11/19 at 08:31; Status DC Midazolam HCl (Versed) 5 mg 1X ONCE IV ; Start 07/11/19 at 08:30; Stop 07/11/19 at 08:31; Status DC Potassium Chloride 15 meq/ Bicarbonate Dialysis Soln w/ out KCl 5,007.5 ml @ 1,000 mls/ hr Q5H1M IV Last administered on 07/12/19at 11:11; Start 07/11/19 at 12:00; Stop 07/12/19 at 11:15; Status DC Potassium Chloride 15 meq/ Bicarbonate Dialysis Soln w/ out KCl 5,007.5 ml @ 1,000 mls/ hr Q5H1M IV Last administered on 07/12/19at 11:12; Start 07/11/19 at 12:00; Stop 07/12/19 at 11:17; Status DC Potassium Chloride 15 meq/ Bicarbonate Dialysis Soln w/ out KCl 5,007.5 ml @ 1,000 mls/ hr Q5H1M IV Last administered on 07/12/19at 11:11; Start 07/11/19 at 12:00; Stop 07/12/19 at 11:19; Status DC Sodium Chloride 90 meq/Potassium Chloride 15 meq/ Potassium Phosphate 10 mmol/ Magnesium Sulfate 10 meq/Calcium Gluconate 20 meq/ Multivitamins 10 ml/Chromium/ Copper/Manganese/ Seleni/Zn 0.5 ml/ Total Parenteral Nutrition/Amino Acids/Dextrose/ Fat Emulsion Intravenous 1,400 ml @ 58.333 mls/ hr TPN CONT IV Last administered on 07/11/19at 21:42; Start 07/11/19 at 22:00; Stop 07/12/19 at 21:59; Status DC Heparin Sodium (Porcine) (Heparin Sodium) 5,000 unit Q8HRS SQ Last administered on 07/16/19at 05:55; Start 07/11/19 at 15:00; Stop 07/16/19 at 13:28; Status DC Meropenem 500 mg/ Sodium Chloride 50 ml @ 100 mls/hr Q6HRS IV Last administered on 07/13/19at 06:00; Start 07/12/19 at 09:00; Stop 07/13/19 at 07:2 9; Status DC Potassium Phosphate 20 mmol/ Sodium Chloride 106.6667 ml @ 51.667 m... 1X ONCE IV Last administered on 07/12/19at 11:22; Start 07/12/19 at 10:15; Stop 07/12/19 at 12:18; Status DC Acetaminophen (Tylenol Supp) 650 mg PRN Q6HRS PRN AL MILD PAIN / TEMP > 100.3'F Last administered on 08/23/19at 09:12; Start 07/12/19 at 10:30 Potassium Chloride/Water 100 ml @ 100 mls/hr Q1H IV Last administered on 07/12/19at 12:12; Start 07/12/19 at 11:00; Stop 07/12/19 at 12:59; Status DC Potassium Chloride 20 meq/ Bicarbonate Dialysis Soln w/ out KCl 5,010 ml @ 1,000 mls/hr Q5H1M IV Last administered on 07/13/19at 08:48; Start 07/12/19 at 12:00; Stop 07/13/19 at 13:03; Status DC Potassium Chloride 20 meq/ Bicarbonate Dialysis Soln w/ out KCl 5,010 ml @ 1,00 0 mls/hr Q5H1M IV Last administered on 07/17/19at 14:52; Start 07/12/19 at 11:30; Stop 07/17/19 at 19:59; Status DC Potassium Chloride 20 meq/ Bicarbonate Dialysis Soln w/ out KCl 5,010 ml @ 1,000 mls/hr Q5H1M IV Last administered on 07/17/19at 14:53; Start 07/12/19 at 11:30; Stop 07/17/19 at 19:59; Status DC Sodium Chloride 90 meq/Potassium Chloride 15 meq/ Potassium Phosphate 15 mmol/ Magnesium Sulfate 10 meq/Calcium Gluconate 15 meq/ Multivitamins 10 ml/Chromium/ Copper/Manganese/ Seleni/Zn 0.5 ml/ Total Parenteral Nutrition/Amino Acids/Dextrose/ Fat Emulsion Intravenous 1,400 ml @ 58.333 mls/ hr TPN CONT IV Last administered on 07/12/19at 22:17; Start 07/12/19 at 22:00; Stop 07/13/19 at 21:59; Status DC Cefepime HCl (Maxipime) 2 gm Q12HR IVP Last administered on 07/26/19at 20:56; Start 07/13/19 at 09:00; Stop 07/27/19 at 09:58; Status DC Daptomycin 500 mg/ Sodium Chloride 50 ml @ 100 mls/hr Q48H IV Last administered on 07/29/19at 09:57; Start 07/13/19 at 08:30; Stop 07/29/19 at 10:07; Status DC Lidocaine HCl (Buffered Lidocaine 1%) 3 ml 1X ONCE INJ Last administered on 07/13/19at 10:27; Start 07/13/19 at 10:30; Stop 07/13/19 at 10:31; Status DC Potassium Phosphate 20 mmol/ Sodium Chloride 106.6667 ml @ 51.667 m... 1X ONCE IV Last administered on 07/13/19at 12:51; Start 07/13/19 at 13:00; Stop 07/13/19 at 15:03; Status DC Sodium Chloride 90 meq/Potassium Chloride 15 meq/ Potassium Phosphate 18 mmol/ Magnesium Sulfate 8 meq/Calcium Gluconate 15 meq/ Multivitamins 10 ml/Chromium/ Copper/Manganese/ Seleni/Zn 0.5 ml/ Total Parenteral Nutrition/Amino Acids/Dextrose/ Fat Emulsion Intravenous 1,400 ml @ 58.333 mls/ hr TPN CONT IV Last administered on 07/13/19at 22:16; Start 07/13/19 at 22:00; Stop 07/14/19 at 21:59; Status DC Potassium Chloride 20 meq/ Bicarbonate Dialysis Soln w/ out KCl 5,010 ml @ 1,000 mls/hr Q5H1M IV Last administered on 07/17/19at 14:54; Start 07/13/19 at 16:00; Stop 07/17/19 at 19:59; Status DC Multi-Ingred Cream/Lotion/Oil/ Oint (Artificial Tears Eye Ointment) 1 ramu PRN Q1HR PRN OU DRY EYE, 2nd choice Last administered on 08/01/19at 08:19; Start 07/13/19 at 17:30 Sodium Chloride 90 meq/Potassium Chloride 15 meq/ Potassium Phosphate 18 mmol/ Magnesium Sulfate 8 meq/Calcium Gluconate 15 meq/ Multivitamins 10 ml/Chromium/ Copper/Manganese/ Seleni/Zn 0.5 ml/ Total Parenteral Nutrition/Amino Acids/Dextrose/ Fat Emulsion Intravenous 1,400 ml @ 58.333 mls/ hr TPN CONT IV Last administered on 07/14/19at 22:00; Start 07/14/19 at 22:00; Stop 07/15/19 at 21:59; Status DC Albumin Human 500 ml @ 125 mls/hr 1X ONCE IV ; Start 07/14/19 at 14:15; Stop 07/14/19 at 18:14; Status DC Sodium Chloride 90 meq/Potassium Chloride 15 meq/ Potassium Phosphate 18 mmol/ Magnesium Sulfate 8 meq/Calcium Gluconate 15 meq/ Multivitamins 10 ml/Chromium/ Copper/Manganese/ Seleni/Zn 0.5 ml/ Insulin Human Regular 10 unit/ Total Parenteral Nutrition/Amino Acids/Dextrose/ Fat Emulsion Intravenous 1,400 ml @ 58.333 mls/ hr TPN CONT IV Last administered on 07/15/19at 21:43; Start 07/15/19 at 22:00; Stop 07/16/19 at 21:59; Status DC Lidocaine HCl (Buffered Lidocaine 1%) 3 ml STK-MED ONCE .ROUTE ; Start 07/13/19 at 10:00; Stop 07/15/19 at 13:57; Status DC Midazolam HCl 100 mg/Sodium Chloride 100 ml @ 7 mls/hr CONT PRN IV SEE PROTOCOL Last administered on 07/27/19at 15:35; Start 07/16/19 at 16:00 Sodium Chloride 90 meq/Potassium Chloride 15 meq/ Potassium Phosphate 18 mmol/ Magnesium Sulfate 8 meq/Calcium Gluconate 15 meq/ Multivitamins 10 ml/Chromium/ Copper/Manganese/ Seleni/Zn 0.5 ml/ Insulin Human Regular 15 unit/ Total Parenteral Nutrition/Amino Acids/Dextrose/ Fat Emulsion Intravenous 1,400 ml @ 58.333 mls/ hr TPN CONT IV Last administered on 07/16/19at 20:34; Start 07/16/19 at 22:00; Stop 07/17/19 at 21:59; Status DC Info (Icu Electrolyte Protocol) 1 ea CONT PRN PRN MC PER PROTOCOL; Start 07/17/19 at 13:15 Sodium Chloride 90 meq/Potassium Chloride 15 meq/ Potassium Phosphate 18 mmol/ Magnesium Sulfate 8 meq/Calcium Gluconate 15 meq/ Multivitamins 10 ml/Chromium/ Copper/Manganese/ Seleni/Zn 0.5 ml/ Insulin Human Regular 15 unit/ Total Parenteral Nutrition/Amino Acids/Dextrose/ Fat Emulsion Intravenous 1,400 ml @ 58.333 mls/ hr TPN CONT IV Last administered on 07/17/19at 22:05; Start 07/17/19 at 22:00; Stop 07/18/19 at 21:59; Status DC Potassium Chloride 15 meq/ Bicarbonate Dialysis Soln w/ out KCl 5,007.5 ml @ 1,000 mls/ hr Q5H1M IV Last administered on 07/20/19at 18:14; Start 07/17/19 at 20:00; Stop 07/21/19 at 13:08; Status DC Potassium Chloride 15 meq/ Bicarbonate Dialysis Soln w/ out KCl 5,007.5 ml @ 1, 000 mls/ hr Q5H1M IV Last administered on 07/20/19at 18:14; Start 07/17/19 at 20:00; Stop 07/21/19 at 13:08; Status DC Potassium Chloride 15 meq/ Bicarbonate Dialysis Soln w/ out KCl 5,007.5 ml @ 1,000 mls/ hr Q5H1M IV Last administered on 07/20/19at 18:14; Start 07/17/19 at 20:00; Stop 07/21/19 at 13:08; Status DC Iohexol (Omnipaque 240 Mg/ml) 30 ml 1X ONCE PO Last administered on 07/18/19at 11:30; Start 07/18/19 at 11:30; Stop 07/18/19 at 11:33; Status DC Info (CONTRAST GIVEN -- Rx MONITORING) 1 each PRN DAILY PRN MC SEE COMMENTS; Start 07/18/19 at 11:45; Stop 07/20/19 at 11:44; Status DC Sodium Chloride 90 meq/Potassium Chloride 15 meq/ Potassium Phosphate 18 mmol/ Magnesium Sulfate 8 meq/Calcium Gluconate 15 meq/ Multivitamins 10 ml/Chromium/ Copper/Manganese/ Seleni/Zn 0.5 ml/ Insulin Human Regular 15 unit/ Total Parenteral Nutrition/Amino Acids/Dextrose/ Fat Emulsion Intravenous 1,400 ml @ 58.333 mls/ hr TPN CONT IV Last administered on 07/18/19at 21:47; Start 07/18/19 at 22:00; Stop 07/19/19 at 21:59; Status DC Sodium Chloride 90 meq/Potassium Chloride 15 meq/ Potassium Phosphate 18 mmol/ Magnesium Sulfate 8 meq/Calcium Gluconate 15 meq/ Multivitamins 10 ml/Chromium/ Copper/Manganese/ Seleni/Zn 0.5 ml/ Insulin Human Regular 20 unit/ Total Parenteral Nutrition/Amino Acids/Dextrose/ Fat Emulsion Intravenous 1,400 ml @ 58.333 mls/ hr TPN CONT IV Last administered on 07/19/19at 21:36; Start 07/19/19 at 22:00; Stop 07/20/19 at 21:59; Status DC Alteplase, Recombinant (Cathflo For Central Catheter Clearance) 1 mg 1X ONCE INT CAT Last administered on 07/19/19at 20:03; Start 07/19/19 at 19:30; Stop 07/19/19 at 19:46; Status DC Alteplase, Recombinant (Cathflo For Central Catheter Clearance) 1 mg 1X ONCE INT CAT Last administered on 07/19/19at 22:05; Start 07/19/19 at 22:00; Stop 07/19/19 at 22:01; Status DC Sodium Chloride 90 meq/Potassium Chloride 15 meq/ Potassium Phosphate 18 mmol/ Magnesium Sulfate 8 meq/Calcium Gluconate 15 meq/ Multivitamins 10 ml/Chromium/ Copper/Manganese/ Seleni/Zn 0.5 ml/ Insulin Human Regular 20 unit/ Total Parenteral Nutrition/Amino Acids/Dextrose/ Fat Emulsion Intravenous 1,400 ml @ 58.333 mls/ hr TPN CONT IV Last administered on 07/20/19at 21:30; Start 07/20/19 at 22:00; Stop 07/21/19 at 21:59; Status DC Dexmedetomidine HCl 400 mcg/ Sodium Chloride 100 ml @ 0 mls/hr CONT PRN IV ANXIETY / AGITATION Last administered on 08/27/19at 05:45; Start 07/21/19 at 08:15 Sodium Chloride 500 ml @ 500 mls/hr 1X PRN PRN IV ELEVATED BP, SEE COMMENTS; Start 07/21/19 at 08:15 Atropine Sulfate (ATROPINE 0.5mg SYRINGE) 0.5 mg PRN Q5MIN PRN IV SEE COMMENTS; Start 07/21/19 at 08:15 Furosemide (Lasix) 20 mg 1X ONCE IVP Last administered on 07/21/19at 08:19; Start 07/21/19 at 08:15; Stop 07/21/19 at 08:16; Status DC Lidocaine HCl (Buffered Lidocaine 1%) 3 ml STK-MED ONCE .ROUTE ; Start 07/21/19 at 08:39; Stop 07/21/19 at 08:39; Status DC Lidocaine HCl (Buffered Lidocaine 1%) 6 ml 1X ONCE INJ Last administered on 07/21/19at 09:05; Start 07/21/19 at 09:00; Stop 07/21/19 at 09:06; Status DC Sodium Chloride 90 meq/Potassium Chloride 15 meq/ Potassium Phosphate 18 mmol/ Magnesium Sulfate 8 meq/Calcium Gluconate 15 meq/ Multivitamins 10 ml/Chromium/ Copper/Manganese/ Seleni/Zn 0.5 ml/ Insulin Human Regular 20 unit/ Total Parenteral Nutrition/Amino Acids/Dextrose/ Fat Emulsion Intravenous 1,400 ml @ 58.333 mls/ hr TPN CONT IV Last administered on 07/21/19at 22:45; Start 07/21/19 at 22:00; Stop 07/22/19 at 21:59; Status DC Sodium Chloride 1,000 ml @ 1,000 mls/hr Q1H PRN IV hypotension; Start 07/22/19 at 07:30; Stop 07/22/19 at 13:29; Status DC Albumin Human 200 ml @ 200 mls/hr 1X PRN PRN IV Hypotension Last administered on 07/22/19at 09:36; Start 07/22/19 at 07:30; Stop 07/22/19 at 13:29; Status DC Sodium Chloride (Normal Saline Flush) 10 ml 1X PRN PRN IV AP catheter pack; Start 07/22/19 at 07:30; Stop 07/22/19 at 21:29; Status DC Sodium Chloride (Normal Saline Flush) 10 ml 1X PRN PRN IV [employer] catheter pack; Start 07/22/19 at 07:30; Stop 07/23/19 at 07:29; Status DC Sodium Chloride 1,000 ml @ 400 mls/hr Q2H30M PRN IV PATENCY; Start 07/22/19 at 07:30; Stop 07/22/19 at 19:29; Status DC Info (PHARMACY MONITORING -- do not chart) 1 each PRN DAILY PRN MC SEE COMMENTS; Start 07/22/19 at 07:30; Stop 07/22/19 at 13:02; Status DC Info (PHARMACY MONITORING -- do not chart) 1 each PRN DAILY PRN MC SEE COMMENTS; Start 07/22/19 at 07:30; Stop 07/24/19 at 12:45; Status DC Sodium Chloride 90 meq/Potassium Chloride 15 meq/ Potassium Phosphate 10 mmol/ Magnesium Sulfate 8 meq/Calcium Gluconate 15 meq/ Multivitamins 10 ml/Chromium/ Copper/Manganese/ Seleni/Zn 0.5 ml/ Insulin Human Regular 25 unit/ Total Parenteral Nutrition/Amino Acids/Dextrose/ Fat Emulsion Intravenous 1,400 ml @ 58.333 mls/ hr TPN CONT IV Last administered on 07/22/19at 22:19; Start 07/22/19 at 22:00; Stop 07/23/19 at 21:59; Status DC Heparin Sodium (Porcine) (Heparin Sodium) 5,000 unit Q12HR SQ Last administered on 08/14/19at 08:59; Start 07/22/19 at 21:00; Stop 08/14/19 at 10:05; Status DC Ondansetron HCl (Zofran) 4 mg PRN Q6HRS PRN IV NAUSEA/VOMITING; Start 07/25/19 at 07:00; Stop 07/26/19 at 06:59; Status DC Fentanyl Citrate (Fentanyl 2ml Vial) 25 mcg PRN Q5MIN PRN IV MILD PAIN 1-3; Start 07/25/19 at 07:00; Stop 07/26/19 at 06:59; Status DC Fentanyl Citrate (Fentanyl 2ml Vial) 50 mcg PRN Q5MIN PRN IV MODERATE TO SEVERE PAIN; Start 07/25/19 at 07:00; Stop 07/26/19 at 06:59; Status DC Ringer's Solution 1,000 ml @ 30 mls/hr Q24H IV ; Start 07/25/19 at 07:00; Stop 07/25/19 at 18:59; Status DC Lidocaine HCl (Xylocaine-Mpf 1% 2ml Vial) 2 ml PRN 1X PRN ID PRIOR TO IV START; Start 07/25/19 at 07:00; Stop 07/26/19 at 06:59; Status DC Prochlorperazine Edisylate (Compazine) 5 mg PACU PRN PRN IV NAUSEA, MRX1; Start 07/25/19 at 07:00; Stop 07/26/19 at 06:59; Status DC Sodium Chloride 1,000 ml @ 1,000 mls/hr Q1H PRN IV hypotension; Start 07/23/19 at 09:10; Stop 07/23/19 at 15:09; Status DC Albumin Human 200 ml @ 200 mls/hr 1X PRN PRN IV Hypotension Last administered on 07/23/19at 10:10; Start 07/23/19 at 09:15; Stop 07/23/19 at 15:14; Status DC Sodium Chloride 1,000 ml @ 400 mls/hr Q2H30M PRN IV PATENCY; Start 07/23/19 at 09:10; Stop 07/23/19 at 21:09; Status DC Info (PHARMACY MONITORING -- do not chart) 1 each PRN DAILY PRN MC SEE COMMENTS; Start 07/23/19 at 09:15; Stop 07/24/19 at 12:45; Status DC Info (PHARMACY MONITORING -- do not chart) 1 each PRN DAILY PRN MC SEE COMMENTS; Start 07/23/19 at 09:15; Stop 07/24/19 at 12:45; Status DC Sodium Chloride 90 meq/Potassium Chloride 15 meq/ Potassium Phosphate 10 mmol/ Magnesium Sulfate 8 meq/Calcium Gluconate 15 meq/ Multivitamins 10 ml/Chromium/ Copper/Manganese/ Seleni/Zn 0.5 ml/ Insulin Human Regular 25 unit/ Total Parenteral Nutrition/Amino Acids/Dextrose/ Fat Emulsion Intravenous 1,400 ml @ 58.333 mls/ hr TPN CONT IV Last administered on 07/23/19at 22:10; Start 07/23/19 at 22:00; Stop 07/24/19 at 21:59; Status DC Magnesium Sulfate 50 ml @ 25 mls/hr PRN DAILY PRN IV for Mag < 1.7 on am labs Last administered on 08/08/19at 17:27; Start 07/24/19 at 09:15 Sodium Chloride 90 meq/Potassium Chloride 15 meq/ Potassium Phosphate 10 mmol/ Magnesium Sulfate 8 meq/Calcium Gluconate 15 meq/ Multivitamins 10 ml/Chromium/ Copper/Manganese/ Seleni/Zn 0.5 ml/ Insulin Human Regular 25 unit/ Total Parenteral Nutrition/Amino Acids/Dextrose/ Fat Emulsion Intravenous 1,400 ml @ 58.333 mls/ hr TPN CONT IV Last administered on 07/24/19at 21:20; Start 07/24/19 at 22:00; Stop 07/25/19 at 21:59; Status DC Sodium Chloride 1,000 ml @ 1,000 mls/hr Q1H PRN IV hypotension; Start 07/24/19 at 12:23; Stop 07/24/19 at 18:22; Status DC Albumin Human 200 ml @ 200 mls/hr 1X ONCE IV Last administered on 07/24/19at 13:34; Start 07/24/19 at 12:30; Stop 07/24/19 at 13:29; Status DC Diphenhydramine HCl (Benadryl) 25 mg 1X PRN PRN IV ITCHING; Start 07/24/19 at 12:30; Stop 07/25/19 at 12:29; Status DC Diphenhydramine HCl (Benadryl) 25 mg 1X PRN PRN IV ITCHING; Start 07/24/19 at 12:30; Stop 07/25/19 at 12:29; Status DC Info (PHARMACY MONITORING -- do not chart) 1 each PRN DAILY PRN MC SEE COMMENTS; Start 07/24/19 at 12:30; Status Cancel Bupivacaine HCl/ Epinephrine Bitart (Sensorcain-Epi 0.5%-1:[id number] Mpf) 30 ml STK-MED ONCE .ROUTE Last administered on 07/25/19at 11:44; Start 07/25/19 at 11:00; Stop 07/25/19 at 11:01; Status DC Cellulose (Surgicel Fibrillar 1x2) 1 each STK-MED ONCE .ROUTE ; Start 07/25/19 at 11:00; Stop 07/25/19 at 11:01; Status DC Sodium Chloride 90 meq/Potassium Chloride 15 meq/ Potassium Phosphate 10 mmol/ Magnesium Sulfate 12 meq/Calcium Gluconate 15 meq/ Multivitamins 10 ml/Chromium/ Copper/Manganese/ Seleni/Zn 0.5 ml/ Insulin Human Regular 25 unit/ Total Parenteral Nutrition/Amino Acids/Dextrose/ Fat Emulsion Intravenous 1,400 ml @ 58.333 mls/ hr TPN CONT IV Last administered on 07/25/19at 22:24; Start 07/25/19 at 22:00; Stop 07/26/19 at 21:59; Status DC Propofol 20 ml @ As Directed STK-MED ONCE IV ; Start 07/25/19 at 11:07; Stop 07/25/19 at 11:07; Status DC Cellulose (Surgicel Hemostat 4x8) 1 each STK-MED ONCE .ROUTE Last administered on 07/25/19at 11:44; Start 07/25/19 at 11:55; Stop 07/25/19 at 11:56; Status DC Sevoflurane (Ultane) 60 ml STK-MED ONCE IH ; Start 07/25/19 at 12:46; Stop 07/25/19 at 12:46; Status DC Sodium Chloride 1,000 ml @ 1,000 mls/hr Q1H PRN IV hypotension; Start 07/25/19 at 13:51; Stop 07/25/19 at 19:50; Status DC Albumin Human 200 ml @ 200 mls/hr 1X PRN PRN IV Hypotension Last administered on 07/25/19at 14:51; Start 07/25/19 at 14:00; Stop 07/25/19 at 19:59; Status DC Diphenhydramine HCl (Benadryl) 25 mg 1X PRN PRN IV ITCHING; Start 07/25/19 at 14:00; Stop 07/26/19 at 13:59; Status DC Diphenhydramine HCl (Benadryl) 25 mg 1X PRN PRN IV ITCHING; Start 07/25/19 at 14:00; Stop 07/26/19 at 13:59; Status DC Sodium Chloride 1,000 ml @ 400 mls/hr Q2H30M PRN IV PATENCY; Start 07/25/19 at 13:51; Stop 07/26/19 at 01:50; Status DC Info (PHARMACY MONITORING -- do not chart) 1 each PRN DAILY PRN MC SEE COMMENTS; Start 07/25/19 at 14:00; Stop 07/28/19 at 08:16; Status DC Heparin Sodium (Porcine) (Hep Lock Adult) 500 unit STK-MED ONCE IVP ; Start 07/26/19 at 09:29; Stop 07/26/19 at 09:30; Status DC Sodium Chloride 1,000 ml @ 1,000 mls/hr Q1H PRN IV hypotension; Start 07/26/19 at 10:43; Stop 07/26/19 at 16:42; Status DC Sodium Chloride 1,000 ml @ 400 mls/hr Q2H30M PRN IV PATENCY; Start 07/26/19 at 10:43; Stop 07/26/19 at 22:42; Status DC Info (PHARMACY MONITORING -- do not chart) 1 each PRN DAILY PRN MC SEE COMMENTS; Start 07/26/19 at 10:45; Status UNV Info (PHARMACY MONITORING -- do not chart) 1 each PRN DAILY PRN MC SEE COMMENTS; Start 07/26/19 at 10:45; Status UNV Sodium Chloride 90 meq/Potassium Chloride 15 meq/ Magnesium Sulfate 12 meq/Calcium Gluconate 15 meq/ Multivitamins 10 ml/Chromium/ Copper/Manganese/ Seleni/Zn 0.5 ml/ Insulin Human Regular 25 unit/ Total Parenteral Nutrition/Amino Acids/Dextrose/ Fat Emulsion Intravenous 1,400 ml @ 58.333 mls/ hr TPN CONT IV Last administered on 07/26/19at 22:13; Start 07/26/19 at 22:00; Stop 07/27/19 at 21:59; Status DC Sodium Chloride 1,000 ml @ 1,000 mls/hr Q1H PRN IV hypotension; Start 07/27/19 at 07:50; Stop 07/27/19 at 13:49; Status DC Albumin Human 200 ml @ 200 mls/hr 1X ONCE IV ; Start 07/27/19 at 08:00; Stop 07/27/19 at 08:53; Status DC Diphenhydramine HCl (Benadryl) 25 mg 1X PRN PRN IV ITCHING; Start 07/27/19 at 08:00; Stop 07/28/19 at 07:59; Status DC Diphenhydramine HCl (Benadryl) 25 mg 1X PRN PRN IV ITCHING; Start 07/27/19 at 08:00; Stop 07/28/19 at 07:59; Status DC Info (PHARMACY MONITORING -- do not chart) 1 each PRN DAILY PRN MC SEE COMMENTS; Start 07/27/19 at 08:00; Stop 07/28/19 at 08:16; Status DC Albumin Human 50 ml @ 50 mls/hr 1X ONCE IV ; Start 07/27/19 at 08:53; Stop 07/27/19 at 08:56; Status DC Albumin Human 200 ml @ 50 mls/hr PRN 1X PRN IV HYPOTENSION Last administered on 08/02/19at 11:54; Start 07/27/19 at 09:00 Meropenem 500 mg/ Sodium Chloride 50 ml @ 100 mls/hr Q12H IV Last administered on 08/16/19at 10:45; Start 07/27/19 at 10:00; Stop 08/16/19 at 12:37; Status DC Sodium Chloride 90 meq/Magnesium Sulfate 12 meq/ Calcium Gluconate 15 meq/ Multivitamins 10 ml/Chromium/ Copper/Manganese/ Seleni/Zn 0.5 ml/ Insulin Human Regular 25 unit/ Total Parenteral Nutrition/Amino Acids/Dextrose/ Fat Emulsion Intravenous 1,400 ml @ 58.333 mls/ hr TPN CONT IV Last administered on 07/27/19at 21:41; Start 07/27/19 at 22:00; Stop 07/28/19 at 21:59; Status DC Sodium Chloride 1,000 ml @ 1,000 mls/hr Q1H PRN IV hypotension; Start 07/28/19 at 07:58; Stop 07/28/19 at 13:57; Status DC Albumin Human 200 ml @ 200 mls/hr 1X PRN PRN IV Hypotension Last administered on 07/28/19at 09:30; Start 07/28/19 at 08:00; Stop 07/28/19 at 13:59; Status DC Sodium Chloride 1,000 ml @ 400 mls/hr Q2H30M PRN IV PATENCY; Start 07/28/19 at 07:58; Stop 07/28/19 at 19:57; Status DC Info (PHARMACY MONITORING -- do not chart) 1 each PRN DAILY PRN MC SEE COMMENTS; Start 07/28/19 at 08:00; Status Cancel Info (PHARMACY MONITORING -- do not chart) 1 each PRN DAILY PRN MC SEE COMMENTS; Start 07/28/19 at 08:15; Status UNV Sodium Chloride 90 meq/Potassium Phosphate 5 mmol/ Magnesium Sulfate 12 meq/Calcium Gluconate 15 meq/ Multivitamins 10 ml/Chromium/ Copper/Manganese/ Seleni/Zn 0.5 ml/ Insulin Human Regular 30 unit/ Total Parenteral Nutrition/Amino Acids/Dextrose/ Fat Emulsion Intravenous 1,400 ml @ 58.333 mls/ hr TPN CONT IV Last administered on 07/28/19at 22:08; Start 07/28/19 at 22:00; Stop 07/29/19 at 21:59; Status DC Linezolid/Dextrose 300 ml @ 300 mls/hr Q12HR IV Last administered on 08/08/19at 20:40; Start 07/29/19 at 11:00; Stop 08/09/19 at 08:10; Status DC Sodium Chloride 90 meq/Potassium Phosphate 15 mmol/ Magnesium Sulfate 12 meq/ Calcium Gluconate 15 meq/ Multivitamins 10 ml/Chromium/ Copper/Manganese/ Seleni/Zn 0.5 ml/ Insulin Human Regular 30 unit/ Total Parenteral Nutrition/Amino Acids/Dextrose/ Fat Emulsion Intravenous 1,400 ml @ 58.333 mls/ hr TPN CONT IV Last administered on 07/29/19at 21:49; Start 07/29/19 at 22:00; Stop 07/30/19 at 21:59; Status DC Sodium Chloride 90 meq/Potassium Phosphate 15 mmol/ Magnesium Sulfate 12 meq/Calcium Gluconate 15 meq/ Multivitamins 10 ml/Chromium/ Copper/Manganese/ Seleni/Zn 0.5 ml/ Insulin Human Regular 40 unit/ Total Parenteral Nutrition/Amino Acids/Dextrose/ Fat Emulsion Intravenous 1,400 ml @ 58.333 mls/ hr TPN CONT IV Last administered on 07/30/19at 21:21; Start 07/30/19 at 22:00; Stop 07/31/19 at 21:59; Status DC Sodium Chloride 1,000 ml @ 1,000 mls/hr Q1H PRN IV hypotension; Start 07/30/19 at 13:26; Stop 07/30/19 at 19:25; Status DC Albumin Human 200 ml @ 200 mls/hr 1X PRN PRN IV Hypotension Last administered on 07/30/19at 15:00; Start 07/30/19 at 13:30; Stop 07/30/19 at 19:29; Status DC Sodium Chloride (Normal Saline Flush) 10 ml 1X PRN PRN IV AP catheter pack; Start 07/30/19 at 13:30; Stop 07/31/19 at 13:29; Status DC Sodium Chloride (Normal Saline Flush) 10 ml 1X PRN PRN IV INS[employer] SALES [employer]OCIATE catheter pack; Start 07/30/19 at 13:30; Stop 07/31/19 at 13:29; Status DC Sodium Chloride 1,000 ml @ 400 mls/hr Q2H30M PRN IV PATENCY; Start 07/30/19 at 13:26; Stop 07/31/19 at 01:25; Status DC Info (PHARMACY MONITORING -- do not chart) 1 each PRN DAILY PRN MC SEE COMMENTS; Start 07/30/19 at 13:30; Stop 07/30/19 at 13:33; Status DC Info (PHARMACY MONITORING -- do not chart) 1 each PRN DAILY PRN MC SEE COMMENTS; Start 07/30/19 at 13:30; Stop 07/30/19 at 13:34; Status DC Sodium Chloride 90 meq/Potassium Phosphate 19 mmol/ Magnesium Sulfate 12 meq/C alcium Gluconate 15 meq/ Multivitamins 10 ml/Chromium/ Copper/Manganese/ Seleni/Zn 0.5 ml/ Insulin Human Regular 40 unit/ Total Parenteral Nutrition/Amino Acids/Dextrose/ Fat Emulsion Intravenous 1,400 ml @ 58.333 mls/ hr TPN CONT IV Last administered on 07/31/19at 21:54; Start 07/31/19 at 22:00; Stop 08/01/19 at 21:59; Status DC Sodium Chloride 1,000 ml @ 1,000 mls/hr Q1H PRN IV hypotension; Start 08/01/19 at 09:35; Stop 08/01/19 at 15:34; Status DC Albumin Human 200 ml @ 200 mls/hr 1X PRN PRN IV Hypotension; Start 08/01/19 at 09:45; Stop 08/01/19 at 15:44; Status DC Diphenhydramine HCl (Benadryl) 25 mg 1X PRN PRN IV ITCHING; Start 08/01/19 at 09:45; Stop 08/02/19 at 09:44; Status DC Diphenhydramine HCl (Benadryl) 25 mg 1X PRN PRN IV ITCHING; Start 08/01/19 at 09:45; Stop 08/02/19 at 09:44; Status DC Sodium Chloride 1,000 ml @ 400 mls/hr Q2H30M PRN IV PATENCY; Start 08/01/19 at 09:35; Stop 08/01/19 at 21:34; Status DC Info (PHARMACY MONITORING -- do not chart) 1 each PRN DAILY PRN MC SEE MELISSAE NTS; Start 08/01/19 at 09:45; Status Cancel Sodium Chloride 100 meq/Potassium Phosphate 19 mmol/ Magnesium Sulfate 12 meq/Calcium Gluconate 15 meq/ Multivitamins 10 ml/Chromium/ Copper/Manganese/ Seleni/Zn 0.5 ml/ Insulin Human Regular 40 unit/ Potassium Chloride 20 meq/ Total Parenteral Nutrition/Amino Acids/Dextrose/ Fat Emulsion Intravenous 1,400 ml @ 58.333 mls/ hr TPN CONT IV Last administered on 08/01/19at 22:02; Start 08/01/19 at 22:00; Stop 08/02/19 at 21:59; Status DC Furosemide (Lasix) 40 mg 1X ONCE IVP Last administered on 08/01/19at 14:39; Start 08/01/19 at 14:30; Stop 08/01/19 at 14:31; Status DC Metronidazole 100 ml @ 100 mls/hr Q8HRS IV Last administered on 08/09/19at 06:04; Start 08/02/19 at 10:00; Stop 08/09/19 at 08:10; Status DC Sodium Chloride 1,000 ml @ 1,000 mls/hr Q1H PRN IV hypotension; Start 08/02/19 at 08:00; Stop 08/02/19 at 13:59; Status DC Albumin Human 200 ml @ 200 mls/hr 1X PRN PRN IV Hypotension; Start 08/02/19 at 08:00; Stop 08/02/19 at 13:59; Status DC Sodium Chloride 1,000 ml @ 400 mls/hr Q2H30M PRN IV PATENCY; Start 08/02/19 at 08:00; Stop 08/02/19 at 19:59; Status DC Info (PHARMACY MONITORING -- do not chart) 1 each PRN DAILY PRN MC SEE COMMENTS; Start 08/02/19 at 11:30; Status UNV Info (PHARMACY MONITORING -- do not chart) 1 each PRN DAILY PRN MC SEE COMMENTS; Start 08/02/19 at 11:30; Stop 08/04/19 at 12:13; Status DC Sodium Chloride 100 meq/Potassium Phosphate 19 mmol/ Magnesium Sulfate 12 meq/Calcium Gluconate 15 meq/ Multivitamins 10 ml/Chromium/ Copper/Manganese/ Seleni/Zn 0.5 ml/ Insulin Human Regular 40 unit/ Potassium Chloride 20 meq/ Total Parenteral Nutrition/Amino Acids/Dextrose/ Fat Emulsion Intravenous 1,400 ml @ 58.333 mls/ hr TPN CONT IV Last administered on 08/02/19at 21:52; Start 08/02/19 at 22:00; Stop 08/03/19 at 21:59; Status DC Sodium Chloride (Normal Saline Flush) 10 ml QSHIFT PRN IV AFTER MEDS AND BLOOD DRAWS; Start 08/02/19 at 15:00 Sodium Chloride (Normal Saline Flush) 10 ml PRN Q5MIN PRN IV AFTER MEDS AND BLOOD DRAWS; Start 08/02/19 at 15:00 Sodium Chloride (Normal Saline Flush) 20 ml PRN Q5MIN PRN IV AFTER MEDS AND BLOOD DRAWS; Start 08/02/19 at 15:00 Sodium Chloride 100 meq/Potassium Phosphate 19 mmol/ Magnesium Sulfate 12 meq/Calcium Gluconate 15 meq/ Multivitamins 10 ml/Chromium/ Copper/Manganese/ Seleni/Zn 0.5 ml/ Insulin Human Regular 40 unit/ Potassium Chloride 20 meq/ Total Parenteral Nutrition/Amino Acids/Dextrose/ Fat Emulsion Intravenous 1,400 ml @ 58.333 mls/ hr TPN CONT IV Last administered on 08/03/19at 21:20; Start 08/03/19 at 22:00; Stop 08/04/19 at 21:59; Status DC Lidocaine HCl (Buffered Lidocaine 1%) 3 ml STK-MED ONCE .ROUTE ; Start 08/03/19 at 13:16; Stop 08/03/19 at 13:16; Status DC Lidocaine HCl (Buffered Lidocaine 1%) 6 ml 1X ONCE INJ Last administered on 08/03/19at 13:45; Start 08/03/19 at 13:30; Stop 08/03/19 at 13:31; Status DC Albumin Human 100 ml @ 100 mls/hr 1X ONCE IV Last administered on 08/03/19at 15:41; Start 08/03/19 at 15:00; Stop 08/03/19 at 15:59; Status DC Albumin Human 50 ml @ 50 mls/hr 1X ONCE IV Last administered on 08/03/19at 15:00; Start 08/03/19 at 15:00; Stop 08/03/19 at 15:59; Status DC Info (PHARMACY MONITORING -- do not chart) 1 each PRN DAILY PRN MC SEE COMMENTS; Start 08/04/19 at 11:30; Status Cancel Info (PHARMACY MONITORING -- do not chart) 1 each PRN DAILY PRN MC SEE COMMENTS; Start 08/04/19 at 11:30; Status UNV Sodium Chloride 100 meq/Potassium Phosphate 10 mmol/ Magnesium Sulfate 12 meq/Calcium Gluconate 15 meq/ Multivitamins 10 ml/Chromium/ Copper/Manganese/ Seleni/Zn 0.5 ml/ Insulin Human Regular 35 unit/ Potassium Chloride 20 meq/ Total Parenteral Nutrition/Amino Acids/Dextrose/ Fat Emulsion Intravenous 1,400 ml @ 58.333 mls/ hr TPN CONT IV Last administered on 08/04/19at 22:10; Start 08/04/19 at 22:00; Stop 08/05/19 at 21:59; Status DC Sodium Chloride 100 meq/Potassium Phosphate 5 mmol/ Magnesium Sulfate 12 meq/Calcium Gluconate 15 meq/ Multivitamins 10 ml/Chromium/ Copper/Manganese/ Seleni/Zn 0.5 ml/ Insulin Human Regular 35 unit/ Potassium Chloride 20 meq/ Total Parenteral Nutrition/Amino Acids/Dextrose/ Fat Emulsion Intravenous 1,400 ml @ 58.333 mls/ hr TPN CONT IV Last administered on 08/05/19at 22:59; Start 08/05/19 at 22:00; Stop 08/06/19 at 21:59; Status DC Sodium Chloride 1,000 ml @ 1,000 mls/hr Q1H PRN IV hypotension; Start 08/06/19 at 08:27; Stop 08/06/19 at 14:26; Status DC Albumin Human 200 ml @ 200 mls/hr 1X PRN PRN IV Hypotension Last administered on 08/06/19at 09:18; Start 08/06/19 at 08:30; Stop 08/06/19 at 14:29; Status DC Sodium Chloride 1,000 ml @ 400 mls/hr Q2H30M PRN IV PATENCY; Start 08/06/19 at 08:27; Stop 08/06/19 at 20:26; Status DC Info (PHARMACY MONITORING -- do not chart) 1 each PRN DAILY PRN MC SEE COMMENTS; Start 08/06/19 at 08:30; Status Cancel Info (PHARMACY MONITORING -- do not chart) 1 each PRN DAILY PRN MC SEE COMMENTS; Start 08/06/19 at 08:30; Stop 08/14/19 at 13:10; Status DC Sodium Chloride 100 meq/Potassium Chloride 40 meq/ Magnesium Sulfate 15 meq/Calcium Gluconate 15 meq/ Multivitamins 10 ml/Chromium/ Copper/Manganese/ Seleni/Zn 0.5 ml/ Insulin Human Regular 35 unit/ Total Parenteral Nutrition/Amino Acids/Dextrose/ Fat Emulsion Intravenous 1,400 ml @ 58.333 mls/ hr TPN CONT IV Last administered on 08/06/19at 22:00; Start 08/06/19 at 22:00; Stop 08/07/19 at 21:59; Status DC Potassium Chloride/Water 100 ml @ 100 mls/hr 1X ONCE IV Last administered on 08/06/19at 17:28; Start 08/06/19 at 14:45; Stop 08/06/19 at 15:44; Status DC Sodium Chloride 100 meq/Potassium Chloride 40 meq/ Magnesium Sulfate 15 meq/Calcium Gluconate 15 meq/ Multivitamins 10 ml/Chromium/ Copper/Manganese/ Seleni/Zn 0.5 ml/ Insulin Human Regular 35 unit/ Total Parenteral Nutrition/Amino Acids/Dextrose/ Fat Emulsion Intravenous 1,400 ml @ 58.333 mls/ hr TPN CONT IV Last administered on 08/07/19at 22:46; Start 08/07/19 at 22:00; Stop 08/08/19 at 21:59; Status DC Sodium Chloride 100 meq/Potassium Chloride 40 meq/ Magnesium Sulfate 20 meq/Calcium Gluconate 15 meq/ Multivitamins 10 ml/Chromium/ Copper/Manganese/ Seleni/Zn 0.5 ml/ Insulin Human Regular 35 unit/ Total Parenteral Nutrition/Amino Acids/Dextrose/ Fat Emulsion Intravenous 1,400 ml @ 58.333 mls/ hr TPN CONT IV Last administered on 08/08/19at 22:31; Start 08/08/19 at 22:00; Stop 08/09/19 at 21:59; Status DC Fentanyl Citrate (Fentanyl 2ml Vial) 50 mcg PRN Q2HR PRN IVP PAIN Last administered on 08/15/19at 13:32; Start 08/08/19 at 21:00; Stop 08/16/19 at 12:53; Status DC Fentanyl Citrate (Fentanyl 2ml Vial) 25 mcg PRN Q2HR PRN IVP PAIN; Start 08/08/19 at 21:00; Stop 08/16/19 at 12:54; Status DC Enoxaparin Sodium (Lovenox 100mg Syringe) 100 mg Q12HR SQ ; Start 08/09/19 at 21:00; Status UNV Amino Acids/ Glycerin/ Electrolytes 1,000 ml @ 75 mls/hr [id number] IV ; Start 08/08/19 at 21:15; Status UNV Sodium Chloride 1,000 ml @ 1,000 mls/hr Q1H PRN IV hypotension; Start 08/09/19 at 07:56; Stop 08/09/19 at 13:55; Status DC Albumin Human 200 ml @ 200 mls/hr 1X PRN PRN IV Hypotension Last administered on 08/09/19at 08:40; Start 08/09/19 at 08:00; Stop 08/09/19 at 13:59; Status DC Sodium Chloride 1,000 ml @ 400 mls/hr Q2H30M PRN IV PATENCY; Start 08/09/19 at 07:56; Stop 08/09/19 at 19:55; Status DC Info (PHARMACY MONITORING -- do not chart) 1 each PRN DAILY PRN MC SEE COMMENTS; Start 08/09/19 at 08:00; Status UNV Info (PHARMACY MONITORING -- do not chart) 1 each PRN DAILY PRN MC SEE COMMENTS; Start 08/09/19 at 08:00; Status UNV Daptomycin 430 mg/ Sodium Chloride 50 ml @ 100 mls/hr Q24H IV Last administered on 08/09/19at 12:35; Start 08/09/19 at 09:00; Stop 08/09/19 at 12:49; Status DC Sodium Chloride 100 meq/Potassium Chloride 40 meq/ Magnesium Sulfate 20 meq/Calcium Gluconate 15 meq/ Multivitamins 10 ml/Chromium/ Copper/Manganese/ Seleni/Zn 0.5 ml/ Insulin Human Regular 35 unit/ Total Parenteral Nutrition/Amino Acids/Dextrose/ Fat Emulsion Intravenous 1,400 ml @ 58.333 mls/ hr TPN CONT IV Last administered on 08/09/19at 21:26; Start 08/09/19 at 22:00; Stop 08/10/19 at 21:59; Status DC Daptomycin 430 mg/ Sodium Chloride 50 ml @ 100 mls/hr Q48H IV ; Start 08/11/19 at 09:00; Stop 08/10/19 at 11:55; Status DC Sodium Chloride 100 meq/Potassium Chloride 40 meq/ Magnesium Sulfate 20 meq/Calcium Gluconate 15 meq/ Multivitamins 10 ml/Chromium/ Copper/Manganese/ Seleni/Zn 0.5 ml/ Insulin Human Regular 35 unit/ Total Parenteral Nutrition/Amino Acids/Dextrose/ Fat Emulsion Intravenous 1,400 ml @ 58.333 mls/ hr TPN CONT IV Last administered on 08/10/19at 22:27; Start 08/10/19 at 22:00; Stop 08/11/19 at 21:59; Status DC Daptomycin 430 mg/ Sodium Chloride 50 ml @ 100 mls/hr Q24H IV Last administ ered on 08/12/19at 15:07; Start 08/10/19 at 13:00; Stop 08/13/19 at 13:15; Status DC Sodium Chloride 100 meq/Potassium Chloride 40 meq/ Magnesium Sulfate 20 meq/Calcium Gluconate 10 meq/ Multivitamins 10 ml/Chromium/ Copper/Manganese/ Seleni/Zn 0.5 ml/ Insulin Human Regular 35 unit/ Total Parenteral Nutrition/Amino Acids/Dextrose/ Fat Emulsion Intravenous 1,400 ml @ 58.333 mls/ hr TPN CONT IV Last administered on 08/12/19at 00:06; Start 08/11/19 at 22:00; Stop 08/12/19 at 21:59; Status DC Alteplase, Recombinant (Cathflo For Central Catheter Clearance) 1 mg 1X ONCE INT CAT Last administered on 08/12/19at 11:44; Start 08/12/19 at 10:45; Stop 08/12/19 at 10:46; Status DC Ondansetron HCl (Zofran) 4 mg PRN Q6HRS PRN IV NAUSEA/VOMITING; Start 08/15/19 at 07:00; Stop 08/16/19 at 06:59; Status DC Fentanyl Citrate (Fentanyl 2ml Vial) 25 mcg PRN Q5MIN PRN IV MILD PAIN 1-3; Start 08/15/19 at 07:00; Stop 08/16/19 at 06:59; Status DC Fentanyl Citrate (Fentanyl 2ml Vial) 50 mcg PRN Q5MIN PRN IV MODERATE TO SEVERE PAIN Last administered on 08/15/19at 10:17; Start 08/15/19 at 07:00; Stop 08/16/19 at 06:59; Status DC Ringer's Solution 1,000 ml @ 30 mls/hr Q24H IV ; Start 08/15/19 at 07:00; Stop 08/15/19 at 18:59; Status DC Lidocaine HCl (Xylocaine-Mpf 1% 2ml Vial) 2 ml PRN 1X PRN ID PRIOR TO IV START; Start 08/15/19 at 07:00; Stop 08/16/19 at 06:59; Status DC Prochlorperazine Edisylate (Compazine) 5 mg PACU PRN PRN IV NAUSEA, MRX1; Start 08/15/19 at 07:00; Stop 08/16/19 at 06:59; Status DC Sodium Acetate 50 meq/Potassium Acetate 55 meq/ Magnesium Sulfate 20 meq/Calcium Gluconate 10 meq/ Multivitamins 10 ml/Chromium/ Copper/Manganese/ Seleni/Zn 0.5 ml/ Insulin Human Regular 35 unit/ Total Parenteral Nutrition/Amino Acids/Dextrose/ Fat Emulsion Intravenous 1,400 ml @ 58.333 mls/ hr TPN CONT IV ; Start 08/12/19 at 22:00; Stop 08/12/19 at 14:15; Status DC Sodium Acetate 50 meq/Potassium Acetate 55 meq/ Magnesium Sulfate 20 meq/Calcium Gluconate 10 meq/ Multivitamins 10 ml/Chromium/ Copper/Manganese/ Seleni/Zn 0.5 ml/ Insulin Human Regular 35 unit/ Total Parenteral Nutrition/Amino Acids/Dextrose/ Fat Emulsion Intravenous 1,800 ml @ 75 mls/hr TPN CONT IV Last administered on 08/12/19at 22:38; Start 08/12/19 at 22:00; Stop 08/13/19 at 21:59; Status DC Sodium Chloride 1,000 ml @ 1,000 mls/hr Q1H PRN IV hypotension; Start 08/12/19 at 15:31; Stop 08/12/19 at 21:30; Status DC Diphenhydramine HCl (Benadryl) 25 mg 1X PRN PRN IV ITCHING; Start 08/12/19 at 15:45; Stop 08/13/19 at 15:44; Status DC Diphenhydramine HCl (Benadryl) 25 mg 1X PRN PRN IV ITCHING; Start 08/12/19 at 15:45; Stop 08/13/19 at 15:44; Status DC Sodium Chloride 1,000 ml @ 400 mls/hr Q2H30M PRN IV PATENCY; Start 08/12/19 at 15:31; Stop 08/13/19 at 03:30; Status DC Info (PHARMACY MONITORING -- do not chart) 1 each PRN DAILY PRN MC SEE COMMENTS; Start 08/12/19 at 15:45 Sodium Acetate 50 meq/Potassium Acetate 55 meq/ Magnesium Sulfate 20 meq/Calcium Gluconate 10 meq/ Multivitamins 10 ml/Chromium/ Copper/Manganese/ Seleni/Zn 0.5 ml/ Insulin Human Regular 35 unit/ Total Parenteral Nutrition/Amino Acids/Dextrose/ Fat Emulsion Intravenous 1,800 ml @ 75 mls/hr TPN CONT IV Last administered on 08/13/19at 22:03; Start 08/13/19 at 22:00; Stop 08/14/19 at 21:59; Status DC Daptomycin 430 mg/ Sodium Chloride 50 ml @ 100 mls/hr Q24H IV Last administered on 08/18/19at 13:00; Start 08/13/19 at 13:00; Stop 08/18/19 at 20:58; Status DC Heparin Sodium (Porcine) 1000 unit/Sodium Chloride 1,001 ml @ 1,001 mls/hr 1X ONCE IRR ; Start 08/15/19 at 06:00; Stop 08/15/19 at 06:59; Status DC Potassium Acetate 55 meq/Magnesium Sulfate 20 meq/ Calcium Gluconate 10 meq/ Multivitamins 10 ml/Chromium/ Copper/Manganese/ Seleni/Zn 0.5 ml/ Insulin Human Regular 35 unit/ Total Parenteral Nutrition/Amino Acids/Dextrose/ Fat Emulsion Intravenous 1,920 ml @ 80 mls/hr TPN CONT IV Last administered on 08/14/19at 22:10; Start 08/14/19 at 22:00; Stop 08/15/19 at 21:59; Status DC Dexamethasone Sodium Phosphate (Decadron) 4 mg STK-MED ONCE .ROUTE ; Start 08/15/19 at 10:56; Stop 08/15/19 at 10:57; Status DC Ondansetron HCl (Zofran) 4 mg STK-MED ONCE .ROUTE ; Start 08/15/19 at 10:56; Stop 08/15/19 at 10:57; Status DC Rocuronium Mclaughlin (Zemuron) 50 mg STK-MED ONCE .ROUTE ; Start 08/15/19 at 10:56; Stop 08/15/19 at 10:57; Status DC Fentanyl Citrate (Fentanyl 2ml Vial) 100 mcg STK-MED ONCE .ROUTE ; Start 08/15/19 at 10:56; Stop 08/15/19 at 10:57; Status DC Bupivacaine HCl/ Epinephrine Bitart (Sensorcain-Epi 0.5%-1:[id number] Mpf) 30 ml STK-MED ONCE .ROUTE Last administered on 08/15/19at 12:01; Start 08/15/19 at 10:58; Stop 08/15/19 at 10:58; Status DC Cellulose (Surgicel Hemostat 2x14) 1 each STK-MED ONCE .ROUTE ; Start 08/15/19 at 10:58; Stop 08/15/19 at 10:59; Status DC Iohexol (Omnipaque 300 Mg/ml) 50 ml STK-MED ONCE .ROUTE ; Start 08/15/19 at 10:58; Stop 08/15/19 at 10:59; Status DC Cellulose (Surgicel Hemostat 4x8) 1 each STK-MED ONCE .ROUTE ; Start 08/15/19 at 10:58; Stop 08/15/19 at 10:59; Status DC Bisacodyl (Dulcolax Supp) 10 mg STK-MED ONCE .ROUTE ; Start 08/15/19 at 10:59; Stop 08/15/19 at 10:59; Status DC Heparin Sodium (Porcine) 1000 unit/Sodium Chloride 1,001 ml @ 1,001 mls/hr 1X ONCE IRR ; Start 08/15/19 at 12:00; Stop 08/15/19 at 12:59; Status DC Propofol 20 ml @ As Directed STK-MED ONCE IV ; Start 08/15/19 at 11:05; Stop 08/15/19 at 11:05; Status DC Sevoflurane (Ultane) 90 ml STK-MED ONCE IH ; Start 08/15/19 at 11:05; Stop 08/15/19 at 11:05; Status DC Sevoflurane (Ultane) 60 ml STK-MED ONCE IH ; Start 08/15/19 at 12:26; Stop 08/15/19 at 12:27; Status DC Propofol 20 ml @ As Directed STK-MED ONCE IV ; Start 08/15/19 at 12:26; Stop 08/15/19 at 12:27; Status DC Phenylephrine HCl (PHENYLEPHRINE in 0.9% NACL PF) 1 mg STK-MED ONCE IV ; Start 08/15/19 at 12:34; Stop 08/15/19 at 12:34; Status DC Heparin Sodium (Porcine) (Heparin Sodium) 5,000 unit Q12HR SQ Last administered on 08/24/19at 20:57; Start 08/15/19 at 21:00; Stop 08/25/19 at 09:59; Status DC Sodium Chloride (Normal Saline Flush) 3 ml QSHIFT PRN IV AFTER MEDS AND BLOOD DRAWS; Start 08/15/19 at 13:45 Naloxone HCl (Narcan) 0.4 mg PRN Q2MIN PRN IV SEE INSTRUCTIONS; Start 08/15/19 at 13:45 Sodium Chloride 1,000 ml @ 25 mls/hr Q24H IV Last administered on 08/27/19at 02:30; Start 08/15/19 at 13:37 Naloxone HCl (Narcan) 0.4 mg PRN Q2MIN PRN IV SEE INSTRUCTIONS; Start 08/15/19 at 14:30; Status UNV Sodium Chloride 1,000 ml @ 25 mls/hr Q24H IV ; Start 08/15/19 at 14:30; Status UNV Hydromorphone HCl 30 ml @ 0 mls/hr CONT PRN PRN IV PER PROTOCOL Last administered on 08/20/19at 16:08; Start 08/15/19 at 14:30; Stop 08/22/19 at 08:55; Status DC Potassium Acetate 55 meq/Magnesium Sulfate 20 meq/ Calcium Gluconate 10 meq/ Multivitamins 10 ml/Chromium/ Copper/Manganese/ Seleni/Zn 0.5 ml/ Insulin Human Regular 35 unit/ Total Parenteral Nutrition/Amino Acids/Dextrose/ Fat Emulsion Intravenous 1,920 ml @ 80 mls/hr TPN CONT IV Last administered on 08/15/19at 22:01; Start 08/15/19 at 22:00; Stop 08/16/19 at 21:59; Status DC Bumetanide (Bumex) 2 mg [id number] IV Last administered on 08/19/19at 13:50; Start 08/16/19 at 14:00; Stop 08/20/19 at 14:10; Status DC Meropenem 1 gm/ Sodium Chloride 100 ml @ 200 mls/hr Q8HRS IV Last administered on 08/27/19at 13:28; Start 08/16/19 at 14:00 Potassium Acetate 55 meq/Magnesium Sulfate 20 meq/ Calcium Gluconate 10 meq/ Multivitamins 10 ml/Chromium/ Copper/Manganese/ Seleni/Zn 0.5 ml/ Insulin Human Regular 35 unit/ Total Parenteral Nutrition/Amino Acids/Dextrose/ Fat Emulsion Intravenous 1,920 ml @ 80 mls/hr TPN CONT IV Last administered on 08/16/19at 22:02; Start 08/16/19 at 22:00; Stop 08/17/19 at 21:59; Status DC Hydromorphone HCl (Dilaudid Standard TENTS ASSEMBLER) 12 mg STK-MED ONCE IV ; Start 08/15/19 at 14:35; Stop 08/16/19 at 13:53; Status DC Artificial Tears (Artificial Tears) 1 drop PRN Q15MIN PRN OU DRY EYE Last administered on 08/26/19at 22:00; Start 08/17/19 at 05:30 Hydromorphone HCl (Dilaudid Standard TENTS ASSEMBLER) 12 mg STK-MED ONCE IV ; Start 08/16/19 at 12:05; Stop 08/17/19 at 09:15; Status DC Potassium Acetate 65 meq/Magnesium Sulfate 20 meq/ Calcium Gluconate 10 meq/ Multivitamins 10 ml/Chromium/ Copper/Manganese/ Seleni/Zn 0.5 ml/ Insulin Human Regular 30 unit/ Total Parenteral Nutrition/Amino Acids/Dextrose/ Fat Emulsion Intravenous 1,920 ml @ 80 mls/hr TPN CONT IV Last administered on 08/17/19at 22:22; Start 08/17/19 at 22:00; Stop 08/18/19 at 21:59; Status DC Cyclobenzaprine HCl (Flexeril) 10 mg PRN Q6HRS PRN PO MUSCLE SPASMS; Start 08/18/19 at 10:45 Potassium Acetate 55 meq/Magnesium Sulfate 20 meq/ Calcium Gluconate 10 meq/ Multivitamins 10 ml/Chromium/ Copper/Manganese/ Seleni/Zn 0.5 ml/ Insulin Human Regular 30 unit/ Total Parenteral Nutrition/Amino Acids/Dextrose/ Fat Emulsion Intravenous 1,920 ml @ 80 mls/hr TPN CONT IV Last administered on 08/19/19at 01:00; Start 08/18/19 at 22:00; Stop 08/19/19 at 21:59; Status DC Magnesium Sulfate 50 ml @ 25 mls/hr 1X ONCE IV Last administered on 08/18/19at 17:18; Start 08/18/19 at 12:45; Stop 08/18/19 at 14:44; Status DC Potassium Chloride/Water 100 ml @ 100 mls/hr 1X ONCE IV Last administered on 08/19/19at 11:27; Start 08/19/19 at 12:00; Stop 08/19/19 at 12:59; Status DC Hydromorphone HCl (Dilaudid Standard TENTS ASSEMBLER) 12 mg STK-MED ONCE IV ; Start 08/17/19 at 10:50; Stop 08/19/19 at 11:02; Status DC Hydromorphone HCl (Dilaudid Standard TENTS ASSEMBLER) 12 mg STK-MED ONCE IV ; Start 08/18/19 at 13:47; Stop 08/19/19 at 11:03; Status DC Potassium Acetate 30 meq/Magnesium Sulfate 20 meq/ Calcium Gluconate 10 meq/ Multivitamins 10 ml/Chromium/ Copper/Manganese/ Seleni/Zn 0.5 ml/ Insulin Human Regular 30 unit/ Potassium Chloride 30 meq/ Total Parenteral Nutrition/Amino Acids/Dextrose/ Fat Emulsion Intravenous 1,920 ml @ 80 mls/hr TPN CONT IV Last administered on 08/19/19at 22:34; Start 08/19/19 at 22:00; Stop 08/20/19 at 21:59; Status DC Potassium Chloride/Water 100 ml @ 100 mls/hr Q1H IV Last administered on 08/20/19at 13:05; Start 08/20/19 at 07:00; Stop 08/20/19 at 10:59; Status DC Magnesium Sulfate 50 ml @ 25 mls/hr 1X ONCE IV Last administered on 08/20/19at 10:34; Start 08/20/19 at 10:30; Stop 08/20/19 at 12:29; Status DC Potassium Chloride 75 meq/ Magnesium Sulfate 20 meq/Calcium Gluconate 10 meq/ Multivitamins 10 ml/Chromium/ Copper/Manganese/ Seleni/Zn 0.5 ml/ Insulin Human Regular 30 unit/ Total Parenteral Nutrition/Amino Acids/Dextrose/ Fat Emulsion Intravenous 1,920 ml @ 80 mls/hr TPN CONT IV Last administered on 08/20/19at 21:51; Start 08/20/19 at 22:00; Stop 08/21/19 at 22:00; Status DC Potassium Chloride 75 meq/ Magnesium Sulfate 20 meq/Calcium Gluconate 10 meq/ Multivitamins 10 ml/Chromium/ Copper/Manganese/ Seleni/Zn 0.5 ml/ Insulin Human Regular 25 unit/ Total Parenteral Nutrition/Amino Acids/Dextrose/ Fat Emulsion Intravenous 1,920 ml @ 80 mls/hr TPN CONT IV Last administered on 08/21/19at 22:04; Start 08/21/19 at 22:00; Stop 08/22/19 at 21:59; Status DC Hydromorphone HCl (Dilaudid) 0.4 mg PRN Q4HRS PRN IVP PAIN Last administered on 08/22/19at 10:57; Start 08/22/19 at 09:00; Stop 08/22/19 at 18:59; Status DC Micafungin Sodium 100 mg/Dextrose 100 ml @ 100 mls/hr Q24H IV Last administered on 08/27/19at 11:25; Start 08/22/19 at 11:00 Daptomycin 485 mg/ Sodium Chloride 50 ml @ 100 mls/hr Q24H IV Last administered on 08/27/19at 13:26; Start 08/22/19 at 11:00 Potassium Chloride 75 meq/ Magnesium Sulfate 15 meq/Calcium Gluconate 8 meq/ Multivitamins 10 ml/Chromium/ Copper/Manganese/ Seleni/Zn 0.5 ml/ Insulin Human Regular 25 unit/ Total Parenteral Nutrition/Amino Acids/Dextrose/ Fat Emulsion Intravenous 1,920 ml @ 80 mls/hr TPN CONT IV Last administered on 08/22/19at 23:08; Start 08/22/19 at 22:00; Stop 08/23/19 at 21:59; Status DC Haloperidol Lactate (Haldol Inj) 3 mg 1X ONCE IVP Last administered on 08/22/19at 14:37; Start 08/22/19 at 14:30; Stop 08/22/19 at 14:31; Status DC Hydromorphone HCl (Dilaudid) 1 mg PRN Q4HRS PRN IVP PAIN Last administered on 08/27/19at 15:30; Start 08/22/19 at 19:00 Potassium Chloride 75 meq/ Magnesium Sulfate 15 meq/Calcium Gluconate 8 meq/ Multivitamins 10 ml/Chromium/ Copper/Manganese/ Seleni/Zn 0.5 ml/ Insulin Human Regular 20 unit/ Total Parenteral Nutrition/Amino Acids/Dextrose/ Fat Emulsion Intravenous 1,920 ml @ 80 mls/hr TPN CONT IV Last administered on 08/23/19at 22:10; Start 08/23/19 at 22:00; Stop 08/24/19 at 21:59; Status DC Lidocaine HCl (Buffered Lidocaine 1%) 3 ml STK-MED ONCE .ROUTE ; Start 08/24/19 at 11:31; Stop 08/24/19 at 11:31; Status DC Lidocaine HCl (Buffered Lidocaine 1%) 3 ml STK-MED ONCE .ROUTE ; Start 08/24/19 at 12:28; Stop 08/24/19 at 12:29; Status DC Lidocaine HCl (Buffered Lidocaine 1%) 6 ml 1X ONCE INJ Last administered on 08/24/19at 12:53; Start 08/24/19 at 12:45; Stop 08/24/19 at 12:46; Status DC Potassium Chloride 75 meq/ Magnesium Sulfate 15 meq/Calcium Gluconate 8 meq/ Multivitamins 10 ml/Chromium/ Copper/Manganese/ Seleni/Zn 0.5 ml/ Insulin Human Regular 20 unit/ Total Parenteral Nutrition/Amino Acids/Dextrose/ Fat Emulsion Intravenous 1,920 ml @ 80 mls/hr TPN CONT IV Last administered on 08/24/19at 22:00; Start 08/24/19 at 22:00; Stop 08/25/19 at 21:59; Status DC Potassium Chloride 75 meq/ Magnesium Sulfate 15 meq/Calcium Gluconate 8 meq/ Multivitamins 10 ml/Chromium/ Copper/Manganese/ Seleni/Zn 0.5 ml/ Insulin Human Regular 15 unit/ Total Parenteral Nutrition/Amino Acids/Dextrose/ Fat Emulsion Intravenous 1,920 ml @ 80 mls/hr TPN CONT IV Last administered on 08/25/19at 22:28; Start 08/25/19 at 22:00; Stop 08/26/19 at 21:59; Status DC Vecuronium Mclaughlin (Norcuron Bolus) 6 mg PRN Q6HRS PRN IV VENT ASYNCHRONY; Start 08/25/19 at 19:15; Stop 08/25/19 at 19:35; Status DC Bumetanide (Bumex) 2 mg 1X ONCE IV Last administered on 08/25/19at 22:09; Start 08/25/19 at 19:45; Stop 08/25/19 at 19:46; Status DC Lidocaine HCl (Buffered Lidocaine 1%) 3 ml STK-MED ONCE .ROUTE ; Start 08/26/19 at 07:59; Stop 08/26/19 at 07:59; Status DC Midazolam HCl (Versed) 5 mg STK-MED ONCE .ROUTE ; Start 08/26/19 at 08:36; Stop 08/26/19 at 08:36; Status DC Fentanyl Citrate (Fentanyl 5ml Vial) 250 mcg STK-MED ONCE .ROUTE ; Start 08/26/19 at 08:36; Stop 08/26/19 at 08:37; Status DC Lidocaine HCl (Buffered Lidocaine 1%) 3 ml 1X ONCE IJ Last administered on 08/26/19at 09:30; Start 08/26/19 at 09:15; Stop 08/26/19 at 09:16; Status DC Midazolam HCl (Versed) 5 mg 1X ONCE IV Last administered on 08/26/19at 09:30; Start 08/26/19 at 09:15; Stop 08/26/19 at 09:16; Status DC Fentanyl Citrate (Fentanyl 5ml Vial) 250 mcg 1X ONCE IV Last administered on 08/26/19at 09:30; Start 08/26/19 at 09:15; Stop 08/26/19 at 09:16; Status DC Bumetanide (Bumex) 2 mg DAILY IV Last administered on 08/27/19at 11:24; Start 08/26/19 at 10:00 Potassium Chloride 75 meq/ Magnesium Sulfate 15 meq/ Multivitamins 10 ml/Chromium/ Copper/Manganese/ Seleni/Zn 0.5 ml/ Insulin Human Regular 15 unit/ Total Parenteral Nutrition/Amino Acids/Dextrose/ Fat Emulsion Intravenous 1,920 ml @ 80 mls/hr TPN CONT IV Last administered on 08/26/19at 21:59; Start 08/26/19 at 22:00; Stop 08/27/19 at 21:59 Active Scripts Active Reported Bisoprolol Fumarate 5 Mg Tablet 10 Mg PO DAILY Vitals/I & O Vital Sign - Last 24 Hours 08/26/19 08/26/19 08/26/19 08/26/19 17:00 18:00 19:00 20:00 Pulse 95 98 97 Resp 37 32 34 B/P (MAP) 136/74 (94) 134/64 (87) 146/68 (94) Pulse Ox 97 98 98 O2 Delivery Tracheal Collar Tracheal Collar Tracheal Collar Trach Collar O2 Flow Rate 8.0 8.0 8.0 08/26/19 08/26/19 08/26/19 08/26/19 20:00 21:00 22:00 22:00 Temp 98.1 98.1 Pulse 105 107 120 Resp 35 34 45 44 B/P (MAP) 136/80 (98) 112/66 (81) 161/82 (108) Pulse Ox 99 100 100 100 O2 Delivery Tracheal Collar Tracheal Collar Tracheal Collar O2 Flow Rate 8.0 8.0 8.0 8.0 08/26/19 08/26/19 08/27/19 08/27/19 22:30 23:00 00:00 00:00 Temp 98.7 98.7 Pulse 119 126 Resp 38 32 32 B/P (MAP) 135/58 (83) 149/75 (99) Pulse Ox 92 100 95 O2 Delivery Tracheal Collar Tracheal Collar Trach Collar O2 Flow Rate 8.0 8.0 8.0 08/27/19 08/27/19 08/27/19 08/27/19 01:00 01:53 02:00 02:23 Pulse 132 130 Resp 32 37 37 36 B/P (MAP) 168/84 (112) 171/80 (110) Pulse Ox 92 92 93 92 O2 Delivery Tracheal Collar Tracheal Collar Tracheal Collar Tracheal Collar O2 Flow Rate 8.0 8.0 8.0 8.0 08/27/19 08/27/19 08/27/19 08/27/19 03:00 04:00 04:00 04:47 Temp 97.3 97.3 Pulse 131 127 Resp 37 33 B/P (MAP) 180/86 (117) 170/86 (114) Pulse Ox 92 92 99 O2 Delivery Tracheal Collar Tracheal Collar Trach Collar Ventilator O2 Flow Rate 8.0 8.0 08/27/19 08/27/19 08/27/19 08/27/19 05:00 06:00 07:00 07:37 Pulse 99 96 96 Resp 37 27 27 B/P (MAP) 120/66 (84) 108/61 (77) 128/71 (90) Pulse Ox 97 100 100 100 O2 Delivery Ventilator Ventilator Ventilator Ventilator 08/27/19 08/27/19 08/27/19 08/27/19 08:00 08:00 09:00 10:00 Temp 98.1 98.1 Pulse 96 96 96 Resp 27 B/P (MAP) 118/71 (87) 109/72 (84) 100/62 (75) Pulse Ox 100 100 100 O2 Delivery Ventilator Trach Collar Ventilator Ventilator 08/27/19 08/27/19 08/27/19 08/27/19 11:00 11:45 12:00 15:16 Pulse 96 Resp 27 B/P (MAP) 127/77 (94) Pulse Ox 100 99 97 O2 Delivery Ventilator Ventilator Trach Collar Ventilator 08/27/19 15:30 Pulse Ox 97 O2 Delivery Ventilator Intake and Output 08/26/19 08/26/19 08/27/19 15:00 23:00 07:00 Intake Total 290 ml 1161 ml 1693.6 ml Output Total 2900 ml 2050 ml 1365 ml Balance -2610 ml -889 ml 328.6 ml Hemodynamically unstable?: No Is patient in severe pain?: Yes Is NPO status required?: Yes NIELS MCGILL MD August 27, 2019 16:19
--- NOTE | 2019-08-27 18:47 | NUR ---
1300 Pt coughing, gagging episode, green bile suctioned from trach, Dr Sewell at bedside. Dr Harris notified of occurence, orders to add Regland. Steven wants zofran, compazine, and reglan rotated Q3H. Will monitor closely. 1500 Bile in trach has subsided. pt more comfortable, less nausea and gagging.
[2019-08-27] MEDS: METOCLOPRAMIDE HCL 10 MG/2 ML VIAL. IVP PRN (20:30)
[2019-08-27] MEDS ORDERED: AMINO ACID IV SCH ×8 (22:00)
[2019-08-27] MEDS ORDERED: [UNRECOGNIZED DRUG - OTHER] IV SCH ×8 (22:00)
[2019-08-27] MEDS ORDERED: TOTAL PARENTERAL NUTRITION IV SCH ×8 (22:00)
[2019-08-27] MEDS ORDERED: DEXTROSE 70% IV SCH ×8 (22:00)
[2019-08-28] VITALS (24 sets, daily range): BP systolic 117–156; BP diastolic 64–85
[2019-08-28] MEDS: DEXMEDETOMIDINE 400 MCG in IV NORMAL SALINE 100ML 96 ML IV PRN ×3 (01:37→22:46)
[2019-08-28] MEDS: METOCLOPRAMIDE HCL 10 MG/2 ML VIAL. IVP PRN ×3 (02:57→20:38)
[2019-08-28] MEDS: PROCHLORPERAZINE 10 MG/2 ML VIAL. IV PRN (02:57)
[2019-08-28] MEDS: HYDROmorphone 2 MG/ML VIAL IVP PRN ×5 (02:58→23:11)
[2019-08-28] MEDS: INSULIN LISPRO 300 UNITS/3 ML VIAL. SQ SCH ×4 (06:00→17:51)
[2019-08-28] MEDS: MEROPENEM 1 GM in IV NORMAL SALINE 100ML 100 ML IV SCH ×3 (06:26→21:40)
[2019-08-28 06:46] LABS: HEMATOCRIT 22.5 % (36.0-47.0); HEMOGLOBIN 7.3 g/dL (12.0-15.5); RED BLOOD COUNT 2.53 x10^6/uL (3.50-5.40); RED CELL DISTRIBUTION WIDTH 17.8 % (11.5-14.5); WHITE BLOOD COUNT 10.3 x10^3/uL (4.0-11.0)
[2019-08-28] MEDS: ONDANSETRON PF 4 MG/2 ML VIAL. IV PRN ×2 (06:50→17:09)
[2019-08-28 07:00] LABS: ALBUMIN 1.6 g/dL (3.4-5.0); ALBUMIN/GLOBULIN RATIO 0.4 (1.0-1.7); CALCIUM 8.2 mg/dL (8.5-10.1); CREATININE 0.7 mg/dL (0.6-1.0); GFR 88.9; POTASSIUM 3.4 mmol/L (3.5-5.1); TOTAL BILIRUBIN 0.5 mg/dL (0.2-1.0); TOTAL PROTEIN 5.4 g/dL (6.4-8.2)
--- NOTE | 2019-08-28 07:27 | NUR ---
Pt reported increased nausea throughout the night. PRN nausea medications administered per order. At approx 0640 this am, pt pointed to her oral suction and begin to vomit. This RN added about 2mL of air to the trach cuff, assisted the patient in suctioning her mouth, and administered PRN Zofran. NG tube is patent and hooked up to LIS. Will pass on and continue to monitor. Pt reported that PRN med was successful in reducing nausea.
[2019-08-28] MEDS: PANTOPRAZOLE IV PUSH 40 MG VIAL. IVP SCH (08:12)
[2019-08-28] MEDS ORDERED: POTASSIUM CHLORIDE 20MEQ 100 ML IV ONE (09:00)
[2019-08-28] MEDS ORDERED: MAGNESIUM SULFATE 2GM 50 ML IV ONE (09:00)
--- NOTE | 2019-08-28 09:07 | PDOC ---
PULMONARY PROGRESS NOTES Subjective Patient intubated on 07/10 , s/p trach 4/6, awake alert follows commands On pressure support PEEP 5 and 30% Nursing reports ongoing N/V Vitals Vital Signs Date Time Temp Pulse Resp B/P (MAP) Pulse Ox O2 Delivery O2 Flow Rate FiO2 08/28/19 08:18 97 Ventilator 08/28/19 08:11 19 08/28/19 06:00 101 142/85 (104) 08/28/19 04:00 99.2 99.2 ROS: No Chest Pain, No Abdominal Pain, No Increase Cough General: Alert, No acute distress Lungs: Crackles Cardiovascular: S1, S2 Abdomen: Soft, Non-tender, Other (firm) Neuro Exam: Alert Extremities: Other (+3 generalized edema ) Skin: Warm, Dry Labs Laboratory Tests Test 08/26/19 12:36 08/26/19 18:13 08/27/19 00:18 08/27/19 06:00 Glucose (Fingerstick) 151 mg/dL (70-99) 150 mg/dL (70-99) 159 mg/dL (70-99) 139 mg/dL (70-99) Sodium Level 149 mmol/L (136-145) Potassium Level 3.9 mmol/L (3.5-5.1) Chloride Level 111 mmol/L (98-107) Carbon Dioxide Level 31 mmol/L (21-32) Anion Gap 7 (6-14) Blood Urea Nitrogen 33 mg/dL (7-20) Creatinine 0.8 mg/dL (0.6-1.0) Estimated GFR (Cockcroft-Gault) 76.2 Glucose Level 145 mg/dL (70-99) Calcium Level 8.7 mg/dL (8.5-10.1) Test 08/27/19 13:34 08/27/19 18:32 08/28/19 00:54 08/28/19 06:15 Glucose (Fingerstick) 182 mg/dL (70-99) 139 mg/dL (70-99) 156 mg/dL (70-99) White Blood Count 10.3 x10^3/uL (4.0-11.0) Red Blood Count 2.53 x10^6/uL (3.50-5.40) Hemoglobin 7.3 g/dL (12.0-15.5) Hematocrit 22.5 % (36.0-47.0) Mean Corpuscular Volume 89 fL (79-100) Mean Corpuscular Hemoglobin 29 pg (25-35) Mean Corpuscular Hemoglobin Concent 32 g/dL (31-37) Red Cell Distribution Width 17.8 % (11.5-14.5) Platelet Count 439 x10^3/uL (140-400) Sodium Level 148 mmol/L (136-145) Potassium Level 3.4 mmol/L (3.5-5.1) Chloride Level 109 mmol/L (98-107) Carbon Dioxide Level 31 mmol/L (21-32) Anion Gap 8 (6-14) Blood Urea Nitrogen 30 mg/dL (7-20) Creatinine 0.7 mg/dL (0.6-1.0) Estimated GFR (Cockcroft-Gault) 88.9 BUN/Creatinine Ratio 43 (6-20) Glucose Level 135 mg/dL (70-99) Calcium Level 8.2 mg/dL (8.5-10.1) Magnesium Level 1.6 mg/dL (1.8-2.4) Total Bilirubin 0.5 mg/dL (0.2-1.0) Aspartate Amino Transf (AST/SGOT) 40 U/L (15-37) Alanine Aminotransferase (ALT/SGPT) 41 U/L (14-59) Alkaline Phosphatase 123 U/L (46-116) Total Protein 5.4 g/dL (6.4-8.2) Albumin 1.6 g/dL (3.4-5.0) Albumin/Globulin Ratio 0.4 (1.0-1.7) Test 08/28/19 06:23 Glucose (Fingerstick) 131 mg/dL (70-99) Laboratory Tests Test 08/27/19 13:34 08/27/19 18:32 08/28/19 00:54 08/28/19 06:15 Glucose (Fingerstick) 182 mg/dL (70-99) 139 mg/dL (70-99) 156 mg/dL (70-99) White Blood Count 10.3 x10^3/uL (4.0-11.0) Red Blood Count 2.53 x10^6/uL (3.50-5.40) Hemoglobin 7.3 g/dL (12.0-15.5) Hematocrit 22.5 % (36.0-47.0) Mean Corpuscular Volume 89 fL (79-100) Mean Corpuscular Hemoglobin 29 pg (25-35) Mean Corpuscular Hemoglobin Concent 32 g/dL (31-37) Red Cell Distribution Width 17.8 % (11.5-14.5) Platelet Count 439 x10^3/uL (140-400) Sodium Level 148 mmol/L (136-145) Potassium Level 3.4 mmol/L (3.5-5.1) Chloride Level 109 mmol/L (98-107) Carbon Dioxide Level 31 mmol/L (21-32) Anion Gap 8 (6-14) Blood Urea Nitrogen 30 mg/dL (7-20) Creatinine 0.7 mg/dL (0.6-1.0) Estimated GFR (Cockcroft-Gault) 88.9 BUN/Creatinine Ratio 43 (6-20) Glucose Level 135 mg/dL (70-99) Calcium Level 8.2 mg/dL (8.5-10.1) Magnesium Level 1.6 mg/dL (1.8-2.4) Total Bilirubin 0.5 mg/dL (0.2-1.0) Aspartate Amino Transf (AST/SGOT) 40 U/L (15-37) Alanine Aminotransferase (ALT/SGPT) 41 U/L (14-59) Alkaline Phosphatase 123 U/L (46-116) Total Protein 5.4 g/dL (6.4-8.2) Albumin 1.6 g/dL (3.4-5.0) Albumin/Globulin Ratio 0.4 (1.0-1.7) Test 08/28/19 06:23 Glucose (Fingerstick) 131 mg/dL (70-99) Medications Active Scripts Medications Dose Route/Sig Max Daily Dose Days Date Category Bisoprolol Fumarate 5 Mg Tablet 10 Mg PO DAILY 07/04/19 Reported Comments CXR 08/27/2019 IMPRESSION: 1. Stable diffuse infiltrate and moderate pleural effusions. 2. Stable support lines and tubes. KUB 08/27/2019 IMPRESSION: 1. Stable to slight increased distended air-filled loops of bowel throughout the abdomen. The transition point is seen. Correlate for ileus. 2. Multiple surgical drains overlying the abdomen. Impression . IMPRESSION: 1. Acute hypoxemic respiratory failure secondary to ARDS status post trach, 2. Gallstone pancreatitis 3. Severe metabolic acidosis.stable 4. Acute kidney injury-stable, ON HD-- continue to improve 5. Acute gallstone pancreatitis. 6. Hypoalbuminemia. 7. Moderate persistent effusions 8. Fever- Per ID, per surgery--resolved 9. Chronic anemia 10. Covid 19 testing negative 11. Moderate to large ascites-S/P paracentisis 12.S/P paracentisis with 4 liters removed on 08/03/19 13. S/P IR drain placement on 08/26/2019 Plan . Patient is more awake today, remains on PS- PEEP 5 and 30%-- continue PS monitor ABG/CXR Follow surgery recs-- S/P 3 drain placed in IR on 08/26/2019 Follow ID recs for ABX Follow nephrology recs Continue TPN DVT/GI PPX: heparin SQ/ protonix D/W RN and RT CODE:FULL HARMEET BEE MD August 28, 2019 09:07
--- NOTE | 2019-08-28 09:24 | PDOC ---
Infectious Disease Note Subjective Subjective + abdominal pain and nausea No fevers last 24 hrs Remains on vent/trach FiO2 30% PEEP 5 On TPN ROS ROS limited ROS as patient is on vent and not very responsive Vital Sign Vital Signs Vital Signs Date Time Temp Pulse Resp B/P (MAP) Pulse Ox O2 Delivery O2 Flow Rate FiO2 08/28/19 08:18 97 Ventilator 08/28/19 08:11 19 08/28/19 06:00 101 142/85 (104) 08/28/19 04:00 99.2 99.2 Physical Exam PHYSICAL EXAM GENERAL: Propped up in bed, appears weak, tired HEENT: oral cavity dry, NGT NECK: Trach/vent LUNGS: Improved aeration HEART: S1, S2, regular ABDOMEN: Distended, hypoactive BS, tender, + drains x 3 : Lind (08/01) EXTREMITIES: Generalized edema, no cyanosis, SCDs bilaterally SKIN: Warm and dry. No generalized rash. GLASS UNLOADING EQUIPMENT TENDER: Nodded some to couple questions PICC(08/17) clean Labs Lab Laboratory Tests Test 08/27/19 13:34 08/27/19 18:32 08/28/19 00:54 08/28/19 06:15 Glucose (Fingerstick) 182 mg/dL (70-99) 139 mg/dL (70-99) 156 mg/dL (70-99) White Blood Count 10.3 x10^3/uL (4.0-11.0) Red Blood Count 2.53 x10^6/uL (3.50-5.40) Hemoglobin 7.3 g/dL (12.0-15.5) Hematocrit 22.5 % (36.0-47.0) Mean Corpuscular Volume 89 fL (79-100) Mean Corpuscular Hemoglobin 29 pg (25-35) Mean Corpuscular Hemoglobin Concent 32 g/dL (31-37) Red Cell Distribution Width 17.8 % (11.5-14.5) Platelet Count 439 x10^3/uL (140-400) Sodium Level 148 mmol/L (136-145) Potassium Level 3.4 mmol/L (3.5-5.1) Chloride Level 109 mmol/L (98-107) Carbon Dioxide Level 31 mmol/L (21-32) Anion Gap 8 (6-14) Blood Urea Nitrogen 30 mg/dL (7-20) Creatinine 0.7 mg/dL (0.6-1.0) Estimated GFR (Cockcroft-Gault) 88.9 BUN/Creatinine Ratio 43 (6-20) Glucose Level 135 mg/dL (70-99) Calcium Level 8.2 mg/dL (8.5-10.1) Magnesium Level 1.6 mg/dL (1.8-2.4) Total Bilirubin 0.5 mg/dL (0.2-1.0) Aspartate Amino Transf (AST/SGOT) 40 U/L (15-37) Alanine Aminotransferase (ALT/SGPT) 41 U/L (14-59) Alkaline Phosphatase 123 U/L (46-116) Total Protein 5.4 g/dL (6.4-8.2) Albumin 1.6 g/dL (3.4-5.0) Albumin/Globulin Ratio 0.4 (1.0-1.7) Test 08/28/19 06:23 Glucose (Fingerstick) 131 mg/dL (70-99) Micro 08/21. BLOOD CULTURE Preliminary NO GROWTH AFTER 5 DAYS 08/14. abd fluid AEROBIC RES 1 Final Organism Identification, Yeast Kiana parapsilosis 08/23. abd fluid ANAEROBIC-AEROBIC CULTURE PENDING Objective Assessment Fever - better currently - intermittent could be from underlying pancreatitis blood cults 08/21 - neg so far ? Ileus with vomiting Abd distention - U/S and CT reviewed s/p 0.4 L of opaque, debris-containing ascites was removed 08/23 Acute pancreatitis with persistent necrosis - 08/14 status post KAYLIN drain placement + C paropsilosis. s/p additional drains 08/25 Anemia - S/p PRBCs Cholelithiasis with thickening of the gallbladder wall. Leucocytosis improving JUANA, hyperkalemia, Metabolic acidosis off dialysis Acute hypoxic resp failure ,bilateral pleural effusion and atelectasis hypocalcemia Prediabetes HTN s/p trach Plan Plan of Care Continue Dapto 08/21, merrem 07/26 -try to wean soon Continue micafungin f/u cultures Maintain aspiration precaution Supportive care Critically ill Patient seen and examined. Chart reviewed in detail. Case discussed with SMOKE INSPECTOR.Agree with above plan FRANCA HOBSON APRN August 28, 2019 09:24 GERMAN TORRES MD August 28, 2019 16:58
[2019-08-28] MEDS: BUMETANIDE 1 MG/4 ML VIAL. IV SCH (10:48)
[2019-08-28] MEDS: DAPTOMYCIN IV SCH (12:09)
[2019-08-28] MEDS: NORMAL SALINE IV SCH (12:09)
[2019-08-28] MEDS: MICAFUNGIN 100 MG in IV DEXTROSE 5% 100ML 100 ML IV SCH (12:14)
[2019-08-28] MEDS: TPN PER PHARMACY MC PRN (12:57)
--- NOTE | 2019-08-28 12:59 | NUR ---
Pharmacy TPN Dosing Note S: SCOTT AVILA is a 48 year old F Currently receiving Central Continuous TPN started 07/06/19 B:Pertinent PMH: Necrotizing pancreatitis Height: 5 feet, 8 inches Weight: 99.7 kg Current diet: NPO LABS: Sodium: 148 Potassium: 3.4 Chloride: 109 Calcium: 8.2 Corrected Calcium: 10.04 Magnesium: 1.6 CO2: 31 SCr: 0.7 Glucose: 131-156 Albumin: 1.7 AST: 40 ALT: 41 TPN FORMULA: TPN TYPE: Central Continuous AMINO ACIDS: 90 gm DEXTROSE: 225 gm LIPIDS: 30 gm POTASSIUM CHLORIDE: 80 mEq MAGNESIUM: 20 mEq INSULIN: 15 units MULTIPLE VITAMIN: 10 ml TRACE ELEMENTS: 0.5 ml(s) TPN PLAN: Replace K with KCl 20 meq IVPB x 1 dose and replace Mag with MagSul 2 gm IVPB x 1 dose. Increased KCl to 80 mEq in TPN and MagSul to 20 mEq in TPN. BG remains at goal. -BMP and Mag in AM. R: Change TPN as noted above. Will monitor electrolytes, glucose, and tolerance to TPN. MIKAYLA CHU RPH, 08/28/19 [id number]
--- NOTE | 2019-08-28 13:21 | PDOC ---
PROGRESS NOTES Chief Complaint Chief Complaint Acute hypoxic Respiratory failure requiring mechanical ventilation (on vent since 07/10) Tracheostomy bilateral pleural effusions/pulm edema Sepsis Severe Acute gallstone pancreatitis (not a surgical candidate at this time) with necrosis Acute kidney failure now requiring dialysis Salpingitis Gallstones (Calculus of gallbladder with acute cholecystitis without obstruction) HTN Leukocytosis Hypoxia Uterine fibroid Intractable pain Intractable nausea Covid 19 negative. Acute on chronic anemia EEG: No seizure activity ESRD on HD Hyperglycemia Plan: Continue with supportive measures encouraged as much activity as tolerated History of Present Illness History of Present Illness Ms Diaz is a 48yo F w/ PMHx HTN, prediabetes who presented to the emergency room with complaints of abdominal pain on 07/04/2019. Found with Lipase 75307, AST 401, ALT 249, Bilirubin 1.4. CT abdomen confirms pancreatic inflammation, peripancreatic fluid and inflammatory changes around the pancreas consistent with pancreatitis. Cholelithiasis and 1.4cm uterine fibroid as well as possible left salpingitis. Admitted for further care GI, General surgery, ID, Pulm consulted. 07/04: PICC placed per IR. Renal US negative. Started on levophed. Repeat CT abdomen w/ necrosis; 07/05: Dialysis catheter per nephrology; 07/06: On BiPAP; 07/07: BiPAP, dialysis; 07/08: Overnight Tmax 101.7 , still on BiPAP FiO2 40%, still on low dose Levophed gtt, TPN initiated. On dialysis 07/24: Tracheostomy; 07/30: S/p tracheostomy on vent spontaneous respirations with 5 of pressure support 35% FiO2, rectal tube and a Lind, off pressors; 08/01:Still on vent via trach. Removed PICC and CVC LIJ and replaced. CT chest/abd/pelvis with bilateral pleural effusion and ascites. 08/02: Renal function stable. Still on vent. More interactive today. Miming wish for food. Plan discussed for thoracentesis/paracentesis with daughters today. They were under impression patient was doing worse due to a miscommunication which has been clarified over the phone. 4.3L removed. 08/04: Febrile overnight 101.8F. More interactive, still on vent. Asking for ice by miming; 08/05: Afebrile overnight. TMax last 24 hours 100.6F. Hb 7.1. Interactive when awake. 4/22: Transfusion 1u PRBC (6U total since admit) 08/10-08/13: TPN and precedex, vent. 08/14: Tmax 101F overnight. Hb 8.2. HD cath out since 08/11. Alert. On vent SIMV 35% FiO2. Surgery: ex-lap, no ronel or pancreatic necrosectomy 2/2 profound inflammation. 08/15: Seen POD #1. Afebrile overnight. BUN 62. CBC WNL today.Remains on vent via trach, TPN. Able to point today and indicate she wishes her daughters and aJmaal to be involved in her care. 08/16: Hb 7.4, Na 151. Remains on vent via trach, TPN. off HD for now. Not tolerating trach shield well. 08/17: Negative US for UE DVT. More relaxed today. Has some increase in UOP. Tolerating vent well. She is requesting to eat and drink via writing. T max 100F 24 hours ago, but 101F at 1200. Right PICC placed. Speaking valve for half the day in [facility] 08/18: Na 153 today. Good UOP. Tmax 101F at 1200 on 08/17. She becomes a bit a nxious and did not sleep much last night, wishes to try to sleep this morning 08/19: Able to speak well with speaking valve today. Na 153, K2.9, Mg 1.8, Cr 1. 100.4F axillary temp overnight. Asking for food. 08/20: Afebrile overnight. ABG with pH 7.27/75/123. Hb 7.1. Na 153. RE DYE HAND settings decreased 08/21: No acute events reported overnight, case discussed with nursing staff goldy de guzman in no acute distress no complaints during my visit 08/22: Patient responding to verbal stimuli. She is saturating well and not requiring ventilation support, no acute events reported overnight seems to be slowly improving 08/23: Patient requiring transfusion of packed red blood cells due to anemia, no evidence of acute bleeding, appreciate GI call center consultant recommendations 08/24: Patient required ventilatory support given that she desaturated, she is lying in bed in mild distress, case discussed with nursing staff, no evidence of bleeding, h an h noted. 08/25: Underwent IR procedure as follows BRIEF OPERATIVE NOTE Pre-Op Diagnosis Pancreatitis with pseudocysts, suspected infection Post-Op Diagnosis same Procedure Performed CT abdominal Drains x 3 Surgeon Tesfaye Anesthesia Type: Conscious Sedation Findings 3 abdominal drains, 14F, with turbid pancreatic fluid and necrotic debris in each. Complications No immediate Plan: vent support, wean if possible throughout the day Encourage activity as tolerated Monitor fever curve, no obvious source of infection, possibly some aspiration events, atelectasis will monitor for bleeding. 08/26: Patient today somewhat restless and having bilious secretions from ET tube, imaging studies ordered, discussed with call center consultant. Pretty poor prognosis, hopefully is not a fistula, poor surgical candidate. 08/27: Imaging with no acute events, she seems more stable today compared to yesterday. Encouraged as much activity as possible patient at high risk for severe depression. Vitals Vitals Vital Signs Date Time Temp Pulse Resp B/P (MAP) Pulse Ox O2 Delivery O2 Flow Rate FiO2 08/28/19 12:37 98 Ventilator 08/28/19 12:10 21 08/28/19 06:00 101 142/85 (104) 08/28/19 04:00 99.2 99.2 Physical Exam Physical Exam GENERAL: Propped up in bed, appears weak, tired HEENT: oral cavity dry, NGT NECK: Trach/vent LUNGS: Improved aeration HEART: S1, S2, regular ABDOMEN: Distended, hypoactive BS, tender, + drains x 3 : Lind (08/01) EXTREMITIES: Generalized edema, no cyanosis, SCDs bilaterally SKIN: Warm and dry. No generalized rash. MICROSTRATEGY DEVELOPER: Nodded some to couple questions PICC(08/17) clean General: Alert, Oriented X3, Cooperative, No acute distress Heart: Regular rate, Normal S1, Normal S2, No murmurs, Gallops Lungs: Crackles Abdomen: Normal bowel sounds, Soft, No tenderness, No hepatosplenomegaly, No masses Extremities: No clubbing, No cyanosis, No edema, Normal pulses, No tenderness/swelling Skin: Other (mottling noted to extremities ) Labs LABS Laboratory Tests Test 08/27/19 13:34 08/27/19 18:32 08/28/19 00:54 08/28/19 06:15 Glucose (Fingerstick) 182 mg/dL (70-99) 139 mg/dL (70-99) 156 mg/dL (70-99) White Blood Count 10.3 x10^3/uL (4.0-11.0) Red Blood Count 2.53 x10^6/uL (3.50-5.40) Hemoglobin 7.3 g/dL (12.0-15.5) Hematocrit 22.5 % (36.0-47.0) Mean Corpuscular Volume 89 fL (79-100) Mean Corpuscular Hemoglobin 29 pg (25-35) Mean Corpuscular Hemoglobin Concent 32 g/dL (31-37) Red Cell Distribution Width 17.8 % (11.5-14.5) Platelet Count 439 x10^3/uL (140-400) Sodium Level 148 mmol/L (136-145) Potassium Level 3.4 mmol/L (3.5-5.1) Chloride Level 109 mmol/L (98-107) Carbon Dioxide Level 31 mmol/L (21-32) Anion Gap 8 (6-14) Blood Urea Nitrogen 30 mg/dL (7-20) Creatinine 0.7 mg/dL (0.6-1.0) Estimated GFR (Cockcroft-Gault) 88.9 BUN/Creatinine Ratio 43 (6-20) Glucose Level 135 mg/dL (70-99) Calcium Level 8.2 mg/dL (8.5-10.1) Magnesium Level 1.6 mg/dL (1.8-2.4) Total Bilirubin 0.5 mg/dL (0.2-1.0) Aspartate Amino Transf (AST/SGOT) 40 U/L (15-37) Alanine Aminotransferase (ALT/SGPT) 41 U/L (14-59) Alkaline Phosphatase 123 U/L (46-116) Total Protein 5.4 g/dL (6.4-8.2) Albumin 1.6 g/dL (3.4-5.0) Albumin/Globulin Ratio 0.4 (1.0-1.7) Test 08/28/19 06:23 08/28/19 12:40 Glucose (Fingerstick) 131 mg/dL (70-99) 149 mg/dL (70-99) Assessment and Plan Assessmemt and Plan Problems Medical Problems: (1) Acute pancreatitis Status: Acute (2) Cholelithiasis Status: Acute Comment Review of Relevant I have reviewed the following items kolby (where applicable) has been applied. Labs Laboratory Tests Test 08/26/19 18:13 08/27/19 00:18 08/27/19 06:00 08/27/19 13:34 Glucose (Fingerstick) 150 mg/dL (70-99) 159 mg/dL (70-99) 139 mg/dL (70-99) 182 mg/dL (70-99) Sodium Level 149 mmol/L (136-145) Potassium Level 3.9 mmol/L (3.5-5.1) Chloride Level 111 mmol/L (98-107) Carbon Dioxide Level 31 mmol/L (21-32) Anion Gap 7 (6-14) Blood Urea Nitrogen 33 mg/dL (7-20) Creatinine 0.8 mg/dL (0.6-1.0) Estimated GFR (Cockcroft-Gault) 76.2 Glucose Level 145 mg/dL (70-99) Calcium Level 8.7 mg/dL (8.5-10.1) Test 08/27/19 18:32 08/28/19 00:54 08/28/19 06:15 08/28/19 06:23 Glucose (Fingerstick) 139 mg/dL (70-99) 156 mg/dL (70-99) 131 mg/dL (70-99) White Blood Count 10.3 x10^3/uL (4.0-11.0) Red Blood Count 2.53 x10^6/uL (3.50-5.40) Hemoglobin 7.3 g/dL (12.0-15.5) Hematocrit 22.5 % (36.0-47.0) Mean Corpuscular Volume 89 fL (79-100) Mean Corpuscular Hemoglobin 29 pg (25-35) Mean Corpuscular Hemoglobin Concent 32 g/dL (31-37) Red Cell Distribution Width 17.8 % (11.5-14.5) Platelet Count 439 x10^3/uL (140-400) Sodium Level 148 mmol/L (136-145) Potassium Level 3.4 mmol/L (3.5-5.1) Chloride Level 109 mmol/L (98-107) Carbon Dioxide Level 31 mmol/L (21-32) Anion Gap 8 (6-14) Blood Urea Nitrogen 30 mg/dL (7-20) Creatinine 0.7 mg/dL (0.6-1.0) Estimated GFR (Cockcroft-Gault) 88.9 BUN/Creatinine Ratio 43 (6-20) Glucose Level 135 mg/dL (70-99) Calcium Level 8.2 mg/dL (8.5-10.1) Magnesium Level 1.6 mg/dL (1.8-2.4) Total Bilirubin 0.5 mg/dL (0.2-1.0) Aspartate Amino Transf (AST/SGOT) 40 U/L (15-37) Alanine Aminotransferase (ALT/SGPT) 41 U/L (14-59) Alkaline Phosphatase 123 U/L (46-116) Total Protein 5.4 g/dL (6.4-8.2) Albumin 1.6 g/dL (3.4-5.0) Albumin/Globulin Ratio 0.4 (1.0-1.7) Test 08/28/19 12:40 Glucose (Fingerstick) 149 mg/dL (70-99) Laboratory Tests Test 08/27/19 13:34 08/27/19 18:32 08/28/19 00:54 08/28/19 06:15 Glucose (Fingerstick) 182 mg/dL (70-99) 139 mg/dL (70-99) 156 mg/dL (70-99) White Blood Count 10.3 x10^3/uL (4.0-11.0) Red Blood Count 2.53 x10^6/uL (3.50-5.40) Hemoglobin 7.3 g/dL (12.0-15.5) Hematocrit 22.5 % (36.0-47.0) Mean Corpuscular Volume 89 fL (79-100) Mean Corpuscular Hemoglobin 29 pg (25-35) Mean Corpuscular Hemoglobin Concent 32 g/dL (31-37) Red Cell Distribution Width 17.8 % (11.5-14.5) Platelet Count 439 x10^3/uL (140-400) Sodium Level 148 mmol/L (136-145) Potassium Level 3.4 mmol/L (3.5-5.1) Chloride Level 109 mmol/L (98-107) Carbon Dioxide Level 31 mmol/L (21-32) Anion Gap 8 (6-14) Blood Urea Nitrogen 30 mg/dL (7-20) Creatinine 0.7 mg/dL (0.6-1.0) Estimated GFR (Cockcroft-Gault) 88.9 BUN/Creatinine Ratio 43 (6-20) Glucose Level 135 mg/dL (70-99) Calcium Level 8.2 mg/dL (8.5-10.1) Magnesium Level 1.6 mg/dL (1.8-2.4) Total Bilirubin 0.5 mg/dL (0.2-1.0) Aspartate Amino Transf (AST/SGOT) 40 U/L (15-37) Alanine Aminotransferase (ALT/SGPT) 41 U/L (14-59) Alkaline Phosphatase 123 U/L (46-116) Total Protein 5.4 g/dL (6.4-8.2) Albumin 1.6 g/dL (3.4-5.0) Albumin/Globulin Ratio 0.4 (1.0-1.7) Test 08/28/19 06:23 08/28/19 12:40 Glucose (Fingerstick) 131 mg/dL (70-99) 149 mg/dL (70-99) Microbiology 08/24/19 Aerobic and Anaerobic Culture, Resulted Pending 08/24/19 Anaerobic Culture Result 1 (ALEXANDRA), Resulted Pending 08/24/19 Aerobic Culture - Preliminary, Resulted 08/24/19 Aerobic Culture Result 1 (ALEXANDRA) - Preliminary, Resulted 08/24/19 Gram Stain - Final, Resulted 08/24/19 Gram Stain Result 1 (ALEXANDRA) - Final, Resulted 08/24/19 Gram Stain Result 2 (ALEXANDRA) - Final, Resulted 08/22/19 Blood Culture - Final, Complete NO GROWTH AFTER 5 DAYS 08/18/19 Aerobic Culture - Final, Complete 08/18/19 Aerobic Culture Result 1 (ALEXANDRA) - Final, Complete 08/18/19 Gram Stain - Final, Complete 08/18/19 Gram Stain Result 1 (ALEXANDRA) - Final, Complete 08/18/19 Gram Stain Result 2 (ALEXANDRA) - Final, Complete 07/31/19 Urine Culture - Final, Complete 07/31/19 Urine Culture Result 1 (ALEXANDRA) - Final, Complete Medications Current Medications Sodium Chloride 1,000 ml @ 1,000 mls/hr Q1H IV Last administered on 07/04/19at 03:00; Start 07/04/19 at 03:00; Stop 07/04/19 at 03:59; Status DC Ondansetron HCl (Zofran) 4 mg 1X ONCE IVP Last administered on 07/04/19at 03:27; Start 07/04/19 at 03:00; Stop 07/04/19 at 03:01; Status DC Morphine Sulfate (Morphine Sulfate) 4 mg 1X ONCE IV ; Start 07/04/19 at 03:00; Stop 07/04/19 at 03:01; Status Cancel Ketorolac Tromethamine (Toradol 30mg Vial) 30 mg 1X ONCE IV Last administered on 07/04/19at 02:54; Start 07/04/19 at 03:00; Stop 07/04/19 at 03:01; Status DC Fentanyl Citrate (Fentanyl 2ml Vial) 25 mcg 1X ONCE IVP Last administered on 07/04/19at 03:23; Start 07/04/19 at 03:30; Stop 07/04/19 at 03:31; Status DC Fentanyl Citrate (Fentanyl 2ml Vial) 100 mcg STK-MED ONCE .ROUTE ; Start 07/04/19 at 03:18; Stop 07/04/19 at 03:18; Status DC Iohexol (Omnipaque 350 Mg/ml) 90 ml 1X ONCE IV Last administered on 07/04/19at 03:25; Start 07/04/19 at 03:30; Stop 07/04/19 at 03:31; Status DC Info (CONTRAST GIVEN -- Rx MONITORING) 1 each PRN DAILY PRN MC SEE COMMENTS; Start 07/04/19 at 03:30; Stop 07/06/19 at 03:29; Status DC Hydromorphone HCl (Dilaudid) 0.5 mg 1X ONCE IV Last administered on 07/04/19at 03:55; Start 07/04/19 at 04:30; Stop 07/04/19 at 04:32; Status DC Ondansetron HCl (Zofran) 4 mg PRN Q8HRS PRN IV NAUSEA/VOMITING 1ST CHOICE; Start 07/04/19 at 05:00; Stop 07/04/19 at 09:27; Status DC Morphine Sulfate (Morphine Sulfate) 2 mg PRN Q2HR PRN IV SEVERE PAIN 7-10 Last administered on 07/05/19at 12:26; Start 07/04/19 at 05:00; Stop 07/05/19 at 14:15; Status DC Sodium Chloride 1,000 ml @ 125 mls/hr Q8H IV Last administered on 07/04/19at 20:56; Start 07/04/19 at 05:00; Stop 07/05/19 at 04:59; Status DC Hydromorphone HCl (Dilaudid) 0.5 mg PRN Q3HRS PRN IV SEVERE PAIN 7-10 Last administered on 07/05/19at 10:06; Start 07/04/19 at 05:00; Stop 07/05/19 at 12:01; Status DC Piperacillin Sod/ Tazobactam Sod 4.5 gm/Sodium Chloride 100 ml @ 200 mls/hr 1X ONCE IV Last administered on 07/04/19at 05:44; Start 07/04/19 at 06:00; Stop 07/04/19 at 06:29; Status DC Ondansetron HCl (Zofran) 4 mg PRN Q4HRS PRN IV NAUSEA/VOMITING 1ST CHOICE Last administered on 08/28/19at 06:50; Start 07/04/19 at 09:30 Insulin Human Lispro (HumaLOG) 0-9 UNITS Q6HRS SQ Last administered on 08/27/19at 13:36; Start 07/04/19 at 09:30 Dextrose (Dextrose 50%-Water Syringe) 12.5 gm PRN Q15MIN PRN IV SEE COMMENTS; Start 07/04/19 at 09:30 Pantoprazole Sodium (PROTONIX VIAL for IV PUSH) 40 mg DAILYAC IVP Last administered on 08/28/19at 08:12; Start 07/04/19 at 11:30 Prochlorperazine Edisylate (Compazine) 10 mg PRN Q6HRS PRN IV NAUSEA/VOMITING, 2nd CHOICE Last administered on 08/28/19at 02:57; Start 07/04/19 at 17:45 Atenolol (Tenormin) 100 mg DAILY PO ; Start 07/05/19 at 09:00; Stop 07/04/19 at 20:08; Status DC Metoprolol Tartrate (Lopressor Vial) 2.5 mg Q6HRS IVP Last administered on 07/05/19at 05:51; Start 07/04/19 at 20:15; Stop 07/05/19 at 10:02; Status DC Metoprolol Tartrate (Lopressor Vial) 5 mg Q6HRS IVP Last administered on at 00:12; Start 07/05/19 at 10:15; Stop 07/16/19 at 08:48; Status DC Hydromorphone HCl (Dilaudid) 1 mg PRN Q3HRS PRN IV SEVERE PAIN 7-10 Last administered on 07/11/19at 05:13; Start 07/05/19 at 12:00; Stop 07/19/19 at 00:25; Status DC Lidocaine HCl (Buffered Lidocaine 1%) 3 ml STK-MED ONCE .ROUTE ; Start 07/05/19 at 12:55; Stop 07/05/19 at 12:56; Status DC Albumin Human 500 ml @ 125 mls/hr 1X ONCE IV Last administered on 07/05/19at 14:33; Start 07/05/19 at 14:30; Stop 07/05/19 at 18:32; Status DC Norepinephrine Bitartrate 8 mg/ Dextrose 258 ml @ 17.299 mls/ hr CONT PRN IV PER PROTOCOL Last administered on 08/02/19at 12:48; Start 07/05/19 at 15:30; Stop 08/05/19 at 09:19; Status DC Sodium Chloride 1,000 ml @ 125 mls/hr Q8H IV Last administered on 07/05/19at 21:04; Start 07/05/19 at 16:00; Stop 07/06/19 at 02:42; Status DC Albumin Human 500 ml @ 125 mls/hr PRN BID PRN IV After every 2L NSS & BP < 90mm Last administered on 07/20/19at 14:21; Start 07/05/19 at 16:00 Iohexol (Omnipaque 300 Mg/ml) 60 ml 1X ONCE IV Last administered on 07/05/19at 17:20; Start 07/05/19 at 17:00; Stop 07/05/19 at 17:01; Status DC Info (CONTRAST GIVEN -- Rx MONITORING) 1 each PRN DAILY PRN MC SEE COMMENTS; Start 07/05/19 at 17:00; Stop 07/07/19 at 16:59; Status DC Meropenem 1 gm/ Sodium Chloride 100 ml @ 200 mls/hr Q8HRS IV Last administered on 07/06/19at 05:45; Start 07/05/19 at 20:00; Stop 07/06/19 at 08:48; Status DC Furosemide (Lasix) 40 mg 1X ONCE IVP Last administered on 07/05/19at 22:12; Start 07/05/19 at 22:30; Stop 07/05/19 at 22:31; Status DC Calcium Chloride 1000 mg/Sodium Chloride 110 ml @ 220 mls/hr 1X ONCE IV Last administered on 07/05/19at 22:11; Start 07/05/19 at 22:30; Stop 07/05/19 at 22:59; Status DC Albuterol Sulfate (Ventolin Neb Soln) 2.5 mg 1X ONCE NEB Last administered on 07/06/19at 00:56; Start 07/05/19 at 22:30; Stop 07/05/19 at 22:31; Status DC Insulin Human Regular (HumuLIN R VIAL) 5 unit 1X ONCE IV Last administered on 07/05/19at 22:14; Start 07/05/19 at 22:30; Stop 07/05/19 at 22:31; Status DC Magnesium Sulfate 50 ml @ 25 mls/hr 1X ONCE IV Last administered on 07/06/19at 02:57; Start 07/06/19 at 03:00; Stop 07/06/19 at 04:59; Status DC Calcium Gluconate 1000 mg/Sodium Chloride 110 ml @ 220 mls/hr 1X ONCE IV Last administered on 07/06/19at 02:46; Start 07/06/19 at 03:00; Stop 07/06/19 at 03:29; Status DC Sodium Chloride 1,000 ml @ 200 mls/hr Q5H IV Last administered on 07/06/19at 02:46; Start 07/06/19 at 03:00; Stop 07/06/19 at 10:21; Status DC Calcium Gluconate 1000 mg/Sodium Chloride 110 ml @ 220 mls/hr 1X ONCE IV Last administered on 07/06/19at 03:21; Start 07/06/19 at 03:30; Stop 07/06/19 at 03:59; Status DC Sodium Bicarbonate 50 meq/Sodium Chloride 1,050 ml @ 75 mls/hr Q14H IV Last administered on 07/10/19at 21:10; Start 07/06/19 at 07:30; Stop 07/11/19 at 10:28; Status DC Calcium Gluconate 2000 mg/Sodium Chloride 120 ml @ 220 mls/hr 1X ONCE IV Last administered on 07/06/19at 09:05; Start 07/06/19 at 07:30; Stop 07/06/19 at 08:02; Status DC Lidocaine HCl (Xylocaine-Mpf 1% 2ml Vial) 2 ml STK-MED ONCE .ROUTE ; Start 07/06/19 at 08:47; Stop 07/06/19 at 08:47; Status DC Meropenem 500 mg/ Sodium Chloride 50 ml @ 100 mls/hr Q12HR IV Last administered on 07/11/19at 21:01; Start 07/06/19 at 18:00; Stop 07/12/19 at 07:58; Status DC Lidocaine HCl (Buffered Lidocaine 1%) 3 ml STK-MED ONCE .ROUTE ; Start 07/06/19 at 09:46; Stop 07/06/19 at 09:46; Status DC Lidocaine HCl (Buffered Lidocaine 1%) 6 ml 1X ONCE INJ Last administered on 07/06/19at 10:26; Start 07/06/19 at 10:15; Stop 07/06/19 at 10:16; Status DC Info (Tpn Per Pharmacy) 1 each PRN DAILY PRN MC SEE COMMENTS Last administered on 08/28/19at 12:57; Start 07/06/19 at 12:00 Sodium Chloride 1,000 ml @ 1,000 mls/hr Q1H PRN IV hypotension; Start 07/06/19 at 12:07; Stop 07/06/19 at 18:06; Status DC Diphenhydramine HCl (Benadryl) 25 mg 1X PRN PRN IV ITCHING; Start 07/06/19 at 12:15; Stop 07/07/19 at 12:14; Status DC Diphenhydramine HCl (Benadryl) 25 mg 1X PRN PRN IV ITCHING; Start 07/06/19 at 12:15; Stop 07/07/19 at 12:14; Status DC Sodium Chloride 1,000 ml @ 400 mls/hr Q2H30M PRN IV PATENCY; Start 07/06/19 at 12:07; Stop 07/07/19 at 00:06; Status DC Info (PHARMACY MONITORING -- do not chart) 1 each PRN DAILY PRN MC SEE COMMENTS; Start 07/06/19 at 12:15; Stop 07/08/19 at 08:13; Status DC Sodium Chloride 90 meq/Calcium Gluconate 10 meq/ Multivitamins 10 ml/Chromium/ Copper/Manganese/ Seleni/Zn 1 ml/ Total Parenteral Nutrition/Amino Acids/Dextrose/ Fat Emulsion Intravenous 55.005 ml @ 2.292 mls/hr TPN CONT IV ; Start 07/06/19 at 22:00; Stop 07/06/19 at 12:33; Status DC Info (Tpn Per Pharmacy) 1 each PRN DAILY PRN MC SEE COMMENTS; Start 07/06/19 at 12:30; Status UNV Sodium Chloride 90 meq/Calcium Gluconate 10 meq/ Multivitamins 10 ml/Chromium/ Copper/Manganese/ Seleni/Zn 0.5 ml/ Total Parenteral Nutrition/Amino Acids/Dextrose/ Fat Emulsion Intravenous 1,512 ml @ 63 mls/hr TPN CONT IV Last administered on 07/06/19at 22:06; Start 07/06/19 at 22:00; Stop 07/07/19 at 21:59; Status DC Calcium Carbonate/ Glycine (Tums) 500 mg PRN AFTMEALHC PRN PO INDIGESTION; Start 07/06/19 at 17:45 Calcium Gluconate (Calcium Gluconate) 2,000 mg 1X ONCE IVP Last administered on 07/07/19at 02:19; Start 07/07/19 at 02:15; Stop 07/07/19 at 02:16; Status DC Calcium Chloride 3000 mg/Sodium Chloride 1,030 ml @ 50 mls/hr [id number] IV Last administered on 07/09/19at 02:17; Start 07/07/19 at 08:00; Stop 07/09/19 at 15:23; Status DC Lorazepam (Ativan Inj) 1 mg PRN Q4HRS PRN IVP ANXIETY / AGITATION, 2nd choic Last administered on 08/05/19at 03:51; Start 07/07/19 at 09:00; Stop 08/05/19 at 09:19; Status DC Sodium Chloride 1,000 ml @ 1,000 mls/hr Q1H PRN IV hypotension; Start 07/07/19 at 08:56; Stop 07/07/19 at 14:55; Status DC Albumin Human 200 ml @ 200 mls/hr 1X PRN PRN IV Hypotension; Start 07/07/19 at 09:00; Stop 07/07/19 at 14:59; Status DC Diphenhydramine HCl (Benadryl) 25 mg 1X PRN PRN IV ITCHING; Start 07/07/19 at 0 9:00; Stop 07/08/19 at 08:59; Status DC Diphenhydramine HCl (Benadryl) 25 mg 1X PRN PRN IV ITCHING; Start 07/07/19 at 09:00; Stop 07/08/19 at 08:59; Status DC Sodium Chloride 1,000 ml @ 400 mls/hr Q2H30M PRN IV PATENCY; Start 07/07/19 at 08:56; Stop 07/07/19 at 20:55; Status DC Info (PHARMACY MONITORING -- do not chart) 1 each PRN DAILY PRN MC SEE COMMENTS; Start 07/07/19 at 09:00; Status UNV Info (PHARMACY MONITORING -- do not chart) 1 each PRN DAILY PRN MC SEE COMMENTS; Start 07/07/19 at 09:00; Stop 07/08/19 at 08:13; Status DC Digoxin (Lanoxin) 500 mcg 1X ONCE IV Last administered on 07/07/19at 10:04; Start 07/07/19 at 10:00; Stop 07/07/19 at 10:01; Status DC Digoxin (Lanoxin) 125 mcg 1X ONCE IV Last administered on 07/07/19at 17:10; Start 07/07/19 at 18:00; Stop 07/07/19 at 18:01; Status DC Magnesium Sulfate 100 ml @ 25 mls/hr 1X ONCE IV Last administered on at 12:48; Start 07/07/19 at 13:00; Stop 07/07/19 at 16:59; Status DC Sodium Chloride 90 meq/Magnesium Sulfate 10 meq/ Calcium Gluconate 20 meq/ Multivitamins 10 ml/Chromium/ Copper/Manganese/ Seleni/Zn 0.5 ml/ Total Parenteral Nutrition/Amino Acids/Dextrose/ Fat Emulsion Intravenous 1,512 ml @ 63 mls/hr TPN CONT IV Last administered on 07/07/19at 22:25; Start 07/07/19 at 22:00; Stop 07/08/19 at 21:59; Status DC Sodium Chloride 1,000 ml @ 1,000 mls/hr Q1H PRN IV hypotension; Start 07/08/19 at 08:05; Stop 07/08/19 at 14:04; Status DC Albumin Human 200 ml @ 200 mls/hr 1X ONCE IV Last administered on 07/08/19at 08:57; Start 07/08/19 at 08:15; Stop 07/08/19 at 09:14; Status DC Diphenhydramine HCl (Benadryl) 25 mg 1X PRN PRN IV ITCHING; Start 07/08/19 at 08:15; Stop 07/09/19 at 08:14; Status DC Diphenhydramine HCl (Benadryl) 25 mg 1X PRN PRN IV ITCHING; Start 07/08/19 at 08:15; Stop 07/09/19 at 08:14; Status DC Sodium Chloride 1,000 ml @ 400 mls/hr Q2H30M PRN IV PATENCY; Start 07/08/19 at 08:05; Stop 07/08/19 at 20:04; Status DC Info (PHARMACY MONITORING -- do not chart) 1 each PRN DAILY PRN MC SEE COMMENTS; Start 07/08/19 at 08:15; Stop 07/12/19 at 07:57; Status DC Sodium Chloride 90 meq/Potassium Chloride 15 meq/ Potassium Phosphate 10 mmol/ Magnesium Sulfate 10 meq/Calcium Gluconate 20 meq/ Multivitamins 10 ml/Chromium/ Copper/Manganese/ Seleni/Zn 0.5 ml/ Total Parenteral Nutrition/Amino Acids/Dextrose/ Fat Emulsion Intravenous 1,512 ml @ 63 mls/hr TPN CONT IV Last administered on 07/08/19at 21:01; Start 07/08/19 at 22:00; Stop 07/09/19 at 21:59; Status DC Potassium Chloride/Water 100 ml @ 100 mls/hr 1X ONCE IV Last administered on 07/08/19at 14:09; Start 07/08/19 at 14:00; Stop 07/08/19 at 14:59; Status DC Benzocaine (Hurricaine One) 1 spray 1X ONCE MM Last administered on 07/08/19at 16:38; Start 07/08/19 at 14:30; Stop 07/08/19 at 14:31; Status DC Lidocaine HCl (Glydo (Lidocaine) Jelly) 1 ramu 1X ONCE MM Last administered on 07/08/19at 16:38; Start 07/08/19 at 14:30; Stop 07/08/19 at 14:31; Status DC Linezolid/Dextrose 300 ml @ 300 mls/hr Q12HR IV Last administered on 07/14/19at 21:04; Start 07/08/19 at 20:00; Stop 07/15/19 at 07:50; Status DC Acetaminophen (Tylenol) 650 mg PRN Q6HRS PRN PO MILD PAIN / TEMP; Start 07/09/19 at 03:30; Stop 07/09/19 at 03:36; Status DC Acetaminophen (Tylenol) 650 mg PRN Q6HRS PRN PEG MILD PAIN / TEMP Last administered on 08/04/19at 19:56; Start 07/09/19 at 03:36 Sodium Chloride 1,000 ml @ 1,000 mls/hr Q1H PRN IV hypotension; Start 07/09/19 at 07:50; Stop 07/09/19 at 13:49; Status DC Albumin Human 200 ml @ 200 mls/hr 1X PRN PRN IV Hypotension; Start 07/09/19 at 08:00; Stop 07/09/19 at 13:59; Status DC Sodium Chloride (Normal Saline Flush) 10 ml 1X PRN PRN IV AP catheter pack; Start 07/09/19 at 08:00; Stop 07/10/19 at 07:59; Status DC Sodium Chloride (Normal Saline Flush) 10 ml 1X PRN PRN IV GOVERNMENT OPERATIONS CONSULTANT catheter pack; Start 07/09/19 at 08:00; Stop 07/10/19 at 07:59; Status DC Sodium Chloride 1,000 ml @ 400 mls/hr Q2H30M PRN IV PATENCY; Start 07/09/19 at 07:50; Stop 07/09/19 at 19:49; Status DC Info (PHARMACY MONITORING -- do not chart) 1 each PRN DAILY PRN MC SEE COMMENTS; Start 07/09/19 at 08:00; Status UNV Info (PHARMACY MONITORING -- do not chart) 1 each PRN DAILY PRN MC SEE COMMENTS; Start 07/09/19 at 08:00; Stop 07/11/19 at 08:25; Status DC Sodium Chloride 90 meq/Potassium Chloride 15 meq/ Potassium Phosphate 10 mmol/ Magnesium Sulfate 10 meq/Calcium Gluconate 20 meq/ Multivitamins 10 ml/Chromium/ Copper/Manganese/ Seleni/Zn 0.5 ml/ Total Parenteral Nutrition/Amino Acids/Dextrose/ Fat Emulsion Intravenous 1,512 ml @ 63 mls/hr TPN CONT IV Last administered on 07/09/19at 20:57; Start 07/09/19 at 22:00; Stop 07/10/19 at 21:59; Status DC Sodium Chloride 90 meq/Potassium Chloride 15 meq/ Potassium Phosphate 15 mmol/ Magnesium Sulfate 10 meq/Calcium Gluconate 20 meq/ Multivitamins 10 ml/Chromium/ Copper/Manganese/ Seleni/Zn 0.5 ml/ Total Parenteral Nutrition/Amino Acids/Dextrose/ Fat Emulsion Intravenous 1,512 ml @ 63 mls/hr TPN CONT IV ; Start 07/10/19 at 22:00; Stop 07/10/19 at 14:16; Status DC Sodium Chloride 90 meq/Potassium Chloride 15 meq/ Potassium Phosphate 15 mmol/ Magnesium Sulfate 10 meq/Calcium Gluconate 20 meq/ Multivitamins 10 ml/Chromium/ Copper/Manganese/ Seleni/Zn 0.5 ml/ Total Parenteral Nutrition/Amino Acids/Dextrose/ Fat Emulsion Intravenous 1,200 ml @ 50 mls/hr TPN CONT IV ; Start 07/10/19 at 22:00; Stop 07/10/19 at 14:17; Status DC Sodium Chloride 90 meq/Potassium Chloride 15 meq/ Potassium Phosphate 10 mmol/ Magnesium Sulfate 10 meq/Calcium Gluconate 20 meq/ Multivitamins 10 ml/Chromium/ Copper/Manganese/ Seleni/Zn 0.5 ml/ Total Parenteral Nutrition/Amino Acids/Dextrose/ Fat Emulsion Intravenous 1,200 ml @ 50 mls/hr TPN CONT IV Last administered on 07/10/19at 23:29; Start 07/10/19 at 22:00; Stop 07/11/19 at 21:59; Status DC Sodium Chloride 1,000 ml @ 1,000 mls/hr Q1H PRN IV hypotension; Start 07/11/19 at 07:28; Stop 07/11/19 at 13:27; Status DC Albumin Human 200 ml @ 200 mls/hr 1X ONCE IV Last administered on 07/11/19at 08:51; Start 07/11/19 at 07:30; Stop 07/11/19 at 08:29; Status DC Diphenhydramine HCl (Benadryl) 25 mg 1X PRN PRN IV ITCHING; Start 07/11/19 at 07:30; Stop 07/12/19 at 07:29; Status DC Diphenhydramine HCl (Benadryl) 25 mg 1X PRN PRN IV ITCHING; Start 07/11/19 at 07:30; Stop 07/12/19 at 07:29; Status DC Sodium Chloride 1,000 ml @ 400 mls/hr Q2H30M PRN IV PATENCY; Start 07/11/19 at 07:28; Stop 07/11/19 at 19:27; Status DC Info (PHARMACY MONITORING -- do not chart) 1 each PRN DAILY PRN MC SEE COMMENTS; Start 07/11/19 at 07:30; Stop 07/22/19 at 13:01; Status DC Metronidazole 100 ml @ 100 mls/hr Q6HRS IV Last administered on 07/27/19at 06:26; Start 07/11/19 at 08:30; Stop 07/27/19 at 09:58; Status DC Micafungin Sodium 100 mg/Dextrose 100 ml @ 100 mls/hr Q24H IV Last administered on 08/18/19at 08:18; Start 07/11/19 at 09:00; Stop 08/18/19 at 20:58; Status DC Propofol 0 ml @ As Directed STK-MED ONCE IV ; Start 07/11/19 at 07:53; Stop 07/11/19 at 07:53; Status DC Etomidate (Amidate) 20 mg STK-MED ONCE IV ; Start 07/11/19 at 07:53; Stop 07/11/19 at 07:54; Status DC Midazolam HCl (Versed) 5 mg STK-MED ONCE .ROUTE ; Start 07/11/19 at 07:57; Stop 07/11/19 at 07:57; Status DC Fentanyl Citrate 30 ml @ 0 mls/hr CONT PRN IV SEE PROTOCOL Last administered on 08/05/19at 06:12; Start 07/11/19 at 08:15; Stop 08/05/19 at 09:19; Status DC Artificial Tears (Artificial Tears) 1 drop PRN Q1HR PRN OU DRY EYE, 1st choice; Start 07/11/19 at 08:15; Stop 08/17/19 at 05:31; Status DC Midazolam HCl 50 mg/Sodium Chloride 50 ml @ 0 mls/hr CONT PRN IV SEE PROTOCOL Last administered on 07/14/19at 22:39; Start 07/11/19 at 08:15; Stop 07/16/19 at 15:59; Status DC Etomidate (Amidate) 8 mg 1X ONCE IV Last administered on 07/11/19at 08:33; Start 07/11/19 at 08:30; Stop 07/11/19 at 08:31; Status DC Succinylcholine Chloride (Anectine) 120 mg 1X ONCE IV Last administered on 07/11/19at 08:34; Start 07/11/19 at 08:30; Stop 07/11/19 at 08:31; Status DC Midazolam HCl (Versed) 5 mg 1X ONCE IV ; Start 07/11/19 at 08:30; Stop 07/11/19 at 08:31; Status DC Potassium Chloride 15 meq/ Bicarbonate Dialysis Soln w/ out KCl 5,007.5 ml @ 1,000 mls/ hr Q5H1M IV Last administered on 07/12/19at 11:11; Start 07/11/19 at 12:00; Stop 07/12/19 at 11:15; Status DC Potassium Chloride 15 meq/ Bicarbonate Dialysis Soln w/ out KCl 5,007.5 ml @ 1,000 mls/ hr Q5H1M IV Last administered on 07/12/19at 11:12; Start 07/11/19 at 12:00; Stop 07/12/19 at 11:17; Status DC Potassium Chloride 15 meq/ Bicarbonate Dialysis Soln w/ out KCl 5,007.5 ml @ 1,000 mls/ hr Q5H1M IV Last administered on 07/12/19at 11:11; Start 07/11/19 at 12:00; Stop 07/12/19 at 11:19; Status DC Sodium Chloride 90 meq/Potassium Chloride 15 meq/ Potassium Phosphate 10 mmol/ Magnesium Sulfate 10 meq/Calcium Gluconate 20 meq/ Multivitamins 10 ml/Chromium/ Copper/Manganese/ Seleni/Zn 0.5 ml/ Total Parenteral Nutrition/Amino Acids/Dextrose/ Fat Emulsion Intravenous 1,400 ml @ 58.333 mls/ hr TPN CONT IV Last administered on 07/11/19at 21:42; Start 07/11/19 at 22:00; Stop 07/12/19 at 21:59; Status DC Heparin Sodium (Porcine) (Heparin Sodium) 5,000 unit Q8HRS SQ Last administered on 07/16/19at 05:55; Start 07/11/19 at 15:00; Stop 07/16/19 at 13:28; Status DC Meropenem 500 mg/ Sodium Chloride 50 ml @ 100 mls/hr Q6HRS IV Last administered on 07/13/19at 06:00; Start 07/12/19 at 09:00; Stop 07/13/19 at 07:29; Status DC Potassium Phosphate 20 mmol/ Sodium Chloride 106.6667 ml @ 51.667 m... 1X ONCE IV Last administered on 07/12/19at 11:22; Start 07/12/19 at 10:15; Stop 07/12/19 at 12:18; Status DC Acetaminophen (Tylenol Supp) 650 mg PRN Q6HRS PRN MA MILD PAIN / TEMP > 100.3'F Last administered on 08/23/19at 09:12; Start 07/12/19 at 10:30 Potassium Chloride/Water 100 ml @ 100 mls/hr Q1H IV Last administered on 07/12/19at 12:12; Start 07/12/19 at 11:00; Stop 07/12/19 at 12:59; Status DC Potassium Chloride 20 meq/ Bicarbonate Dialysis Soln w/ out KCl 5,010 ml @ 1,000 mls/hr Q5H1M IV Last administered on 07/13/19at 08:48; Start 07/12/19 at 12:00; Stop 07/13/19 at 13:03; Status DC Potassium Chloride 20 meq/ Bicarbonate Dialysis Soln w/ out KCl 5,010 ml @ 1,000 mls/hr Q5H1M IV Last administered on 07/17/19at 14:52; Start 07/12/19 at 11:30; Stop 07/17/19 at 19:59; Status DC Potassium Chloride 20 meq/ Bicarbonate Dialysis Soln w/ out KCl 5,010 ml @ 1,000 mls/hr Q5H1M IV Last administered on 07/17/19at 14:53; Start 07/12/19 at 11:30; Stop 07/17/19 at 19:59; Status DC Sodium Chloride 90 meq/Potassium Chloride 15 meq/ Potassium Phosphate 15 mmol/ Magnesium Sulfate 10 meq/Calcium Gluconate 15 meq/ Multivitamins 10 ml/Chromium/ Copper/Manganese/ Seleni/Zn 0.5 ml/ Total Parenteral Nutrition/Amino Acids/Dextrose/ Fat Emulsion Intravenous 1,400 ml @ 58.333 mls/ hr TPN CONT IV Last administered on 07/12/19at 22:17; Start 07/12/19 at 22:00; Stop 07/13/19 at 21:59; Status DC Cefepime HCl (Maxipime) 2 gm Q12HR IVP Last administered on 07/26/19at 20:56; Start 07/13/19 at 09:00; Stop 07/27/19 at 09:58; Status DC Daptomycin 500 mg/ Sodium Chloride 50 ml @ 100 mls/hr Q48H IV Last administered on 07/29/19at 09:57; Start 07/13/19 at 08:30; Stop 07/29/19 at 10:07; Status DC Lidocaine HCl (Buffered Lidocaine 1%) 3 ml 1X ONCE INJ Last administered on at 10:27; Start 07/13/19 at 10:30; Stop 07/13/19 at 10:31; Status DC Potassium Phosphate 20 mmol/ Sodium Chloride 106.6667 ml @ 51.667 m... 1X ONCE IV Last administered on 07/13/19at 12:51; Start 07/13/19 at 13:00; Stop 07/13/19 at 15:03; Status DC Sodium Chloride 90 meq/Potassium Chloride 15 meq/ Potassium Phosphate 18 mmol/ Magnesium Sulfate 8 meq/Calcium Gluconate 15 meq/ Multivitamins 10 ml/Chromium/ Copper/Manganese/ Seleni/Zn 0.5 ml/ Total Parenteral Nutrition/Amino Acids/Dextrose/ Fat Emulsion Intravenous 1,400 ml @ 58.333 mls/ hr TPN CONT IV Last administered on 07/13/19at 22:16; Start 07/13/19 at 22:00; Stop 07/14/19 at 21:59; Status DC Potassium Chloride 20 meq/ Bicarbonate Dialysis Soln w/ out KCl 5,010 ml @ 1,000 mls/hr Q5H1M IV Last administered on 07/17/19at 14:54; Start 07/13/19 at 16:00; Stop 07/17/19 at 19:59; Status DC Multi-Ingred Cream/Lotion/Oil/ Oint (Artificial Tears Eye Ointment) 1 ramu PRN Q1HR PRN OU DRY EYE, 2nd choice Last administered on 08/01/19at 08:19; Start 07/13/19 at 17:30 Sodium Chloride 90 meq/Potassium Chloride 15 meq/ Potassium Phosphate 18 mmol/ Magnesium Sulfate 8 meq/Calcium Gluconate 15 meq/ Multivitamins 10 ml/Chromium/ Copper/Manganese/ Seleni/Zn 0.5 ml/ Total Parenteral Nutrition/Amino Acids/Dextrose/ Fat Emulsion Intravenous 1,400 ml @ 58.333 mls/ hr TPN CONT IV Last administered on 07/14/19at 22:00; Start 07/14/19 at 22:00; Stop 07/15/19 at 21:59; Status DC Albumin Human 500 ml @ 125 mls/hr 1X ONCE IV ; Start 07/14/19 at 14:15; Stop 07/14/19 at 18:14; Status DC Sodium Chloride 90 meq/Potassium Chloride 15 meq/ Potassium Phosphate 18 mmol/ Magnesium Sulfate 8 meq/Calcium Gluconate 15 meq/ Multivitamins 10 ml/Chromium/ Copper/Manganese/ Seleni/Zn 0.5 ml/ Insulin Human Regular 10 unit/ Total Janett ral Nutrition/Amino Acids/Dextrose/ Fat Emulsion Intravenous 1,400 ml @ 58.333 mls/ hr TPN CONT IV Last administered on 07/15/19at 21:43; Start 07/15/19 at 22:00; Stop 07/16/19 at 21:59; Status DC Lidocaine HCl (Buffered Lidocaine 1%) 3 ml STK-MED ONCE .ROUTE ; Start 07/13/19 at 10:00; Stop 07/15/19 at 13:57; Status DC Midazolam HCl 100 mg/Sodium Chloride 100 ml @ 7 mls/hr CONT PRN IV SEE PROTOCOL Last administered on 07/27/19at 15:35; Start 07/16/19 at 16:00 Sodium Chloride 90 meq/Potassium Chloride 15 meq/ Potassium Phosphate 18 mmol/ Magnesium Sulfate 8 meq/Calcium Gluconate 15 meq/ Multivitamins 10 ml/Chromium/ Copper/Manganese/ Seleni/Zn 0.5 ml/ Insulin Human Regular 15 unit/ Total Parenteral Nutrition/Amino Acids/Dextrose/ Fat Emulsion Intravenous 1,400 ml @ 58.333 mls/ hr TPN CONT IV Last administered on 07/16/19at 20:34; Start 07/16/19 at 22:00; Stop 07/17/19 at 21:59; Status DC Info (Icu Electrolyte Protocol) 1 ea CONT PRN PRN MC PER PROTOCOL; Start 07/17/19 at 13:15 Sodium Chloride 90 meq/Potassium Chloride 15 meq/ Potassium Phosphate 18 mmol/ Magnesium Sulfate 8 meq/Calcium Gluconate 15 meq/ Multivitamins 10 ml/Chromium/ Copper/Manganese/ Seleni/Zn 0.5 ml/ Insulin Human Regular 15 unit/ Total Parenteral Nutrition/Amino Acids/Dextrose/ Fat Emulsion Intravenous 1,400 ml @ 58.333 mls/ hr TPN CONT IV Last administered on 07/17/19at 22:05; Start 07/17/19 at 22:00; Stop 07/18/19 at 21:59; Status DC Potassium Chloride 15 meq/ Bicarbonate Dialysis Soln w/ out KCl 5,007.5 ml @ 1,000 mls/ hr Q5H1M IV Last administered on 07/20/19at 18:14; Start 07/17/19 at 20:00; Stop 07/21/19 at 13:08; Status DC Potassium Chloride 15 meq/ Bicarbonate Dialysis Soln w/ out KCl 5,007.5 ml @ 1,000 mls/ hr Q5H1M IV Last administered on 07/20/19at 18:14; Start 07/17/19 at 20:00; Stop 07/21/19 at 13:08; Status DC Potassium Chloride 15 meq/ Bicarbonate Dialysis Soln w/ out KCl 5,007.5 ml @ 1,000 mls/ hr Q5H1M IV Last administered on 07/20/19at 18:14; Start 07/17/19 at 20:00; Stop 07/21/19 at 13:08; Status DC Iohexol (Omnipaque 240 Mg/ml) 30 ml 1X ONCE PO Last administered on 07/18/19at 11:30; Start 07/18/19 at 11:30; Stop 07/18/19 at 11:33; Status DC Info (CONTRAST GIVEN -- Rx MONITORING) 1 each PRN DAILY PRN MC SEE COMMENTS; Start 07/18/19 at 11:45; Stop 07/20/19 at 11:44; Status DC Sodium Chloride 90 meq/Potassium Chloride 15 meq/ Potassium Phosphate 18 mmol/ Magnesium Sulfate 8 meq/Calcium Gluconate 15 meq/ Multivitamins 10 ml/Chromium/ Copper/Manganese/ Seleni/Zn 0.5 ml/ Insulin Human Regular 15 unit/ Total Parenteral Nutrition/Amino Acids/Dextrose/ Fat Emulsion Intravenous 1,400 ml @ 58.333 mls/ hr TPN CONT IV Last administered on 07/18/19at 21:47; Start 07/18/19 at 22:00; Stop 07/19/19 at 21:59; Status DC Sodium Chloride 90 meq/Potassium Chloride 15 meq/ Potassium Phosphate 18 mmol/ Magnesium Sulfate 8 meq/Calcium Gluconate 15 meq/ Multivitamins 10 ml/Chromium/ Copper/Manganese/ Seleni/Zn 0.5 ml/ Insulin Human Regular 20 unit/ Total Parenteral Nutrition/Amino Acids/Dextrose/ Fat Emulsion Intravenous 1,400 ml @ 58.333 mls/ hr TPN CONT IV Last administered on 07/19/19at 21:36; Start 07/19/19 at 22:00; Stop 07/20/19 at 21:59; Status DC Alteplase, Recombinant (Cathflo For Central Catheter Clearance) 1 mg 1X ONCE INT CAT Last administered on 07/19/19at 20:03; Start 07/19/19 at 19:30; Stop 07/19/19 at 19:46; Status DC Alteplase, Recombinant (Cathflo For Central Catheter Clearance) 1 mg 1X ONCE I NT CAT Last administered on 07/19/19at 22:05; Start 07/19/19 at 22:00; Stop 07/19/19 at 22:01; Status DC Sodium Chloride 90 meq/Potassium Chloride 15 meq/ Potassium Phosphate 18 mmol/ Magnesium Sulfate 8 meq/Calcium Gluconate 15 meq/ Multivitamins 10 ml/Chromium/ Copper/Manganese/ Seleni/Zn 0.5 ml/ Insulin Human Regular 20 unit/ Total Parenteral Nutrition/Amino Acids/Dextrose/ Fat Emulsion Intravenous 1,400 ml @ 58.333 mls/ hr TPN CONT IV Last administered on 07/20/19at 21:30; Start 07/20/19 at 22:00; Stop 07/21/19 at 21:59; Status DC Dexmedetomidine HCl 400 mcg/ Sodium Chloride 100 ml @ 0 mls/hr CONT PRN IV ANXIETY / AGITATION Last administered on 08/28/19at 09:38; Start 07/21/19 at 08:15 Sodium Chloride 500 ml @ 500 mls/hr 1X PRN PRN IV ELEVATED BP, SEE COMMENTS; Start 07/21/19 at 08:15 Atropine Sulfate (ATROPINE 0.5mg SYRINGE) 0.5 mg PRN Q5MIN PRN IV SEE COMMENTS; Start 07/21/19 at 08:15 Furosemide (Lasix) 20 mg 1X ONCE IVP Last administered on 07/21/19at 08:19; Start 07/21/19 at 08:15; Stop 07/21/19 at 08:16; Status DC Lidocaine HCl (Buffered Lidocaine 1%) 3 ml STK-MED ONCE .ROUTE ; Start 07/21/19 at 08:39; Stop 07/21/19 at 08:39; Status DC Lidocaine HCl (Buffered Lidocaine 1%) 6 ml 1X ONCE INJ Last administered on 07/21/19at 09:05; Start 07/21/19 at 09:00; Stop 07/21/19 at 09:06; Status DC Sodium Chloride 90 meq/Potassium Chloride 15 meq/ Potassium Phosphate 18 mmol/ Magnesium Sulfate 8 meq/Calcium Gluconate 15 meq/ Multivitamins 10 ml/Chromium/ Copper/Manganese/ Seleni/Zn 0.5 ml/ Insulin Human Regular 20 unit/ Total Parenteral Nutrition/Amino Acids/Dextrose/ Fat Emulsion Intravenous 1,400 ml @ 58.333 mls/ hr TPN CONT IV Last administered on 07/21/19at 22:45; Start 07/21/19 at 22:00; Stop 07/22/19 at 21:59; Status DC Sodium Chloride 1,000 ml @ 1,000 mls/hr Q1H PRN IV hypotension; Start 07/22/19 at 07:30; Stop 07/22/19 at 13:29; Status DC Albumin Human 200 ml @ 200 mls/hr 1X PRN PRN IV Hypotension Last administered on 07/22/19at 09:36; Start 07/22/19 at 07:30; Stop 07/22/19 at 13:29; Status DC Sodium Chloride (Normal Saline Flush) 10 ml 1X PRN PRN IV AP catheter pack; Start 07/22/19 at 07:30; Stop 07/22/19 at 21:29; Status DC Sodium Chloride (Normal Saline Flush) 10 ml 1X PRN PRN IV GOVERNMENT OPERATIONS CONSULTANT catheter pack; Start 07/22/19 at 07:30; Stop 07/23/19 at 07:29; Status DC Sodium Chloride 1,000 ml @ 400 mls/hr Q2H30M PRN IV PATENCY; Start 07/22/19 at 07:30; Stop 07/22/19 at 19:29; Status DC Info (PHARMACY MONITORING -- do not chart) 1 each PRN DAILY PRN MC SEE COMMENTS; Start 07/22/19 at 07:30; Stop 07/22/19 at 13:02; Status DC Info (PHARMACY MONITORING -- do not chart) 1 each PRN DAILY PRN MC SEE COMMENTS; Start 07/22/19 at 07:30; Stop 07/24/19 at 12:45; Status DC Sodium Chloride 90 meq/Potassium Chloride 15 meq/ Potassium Phosphate 10 mmol/ Magnesium Sulfate 8 meq/Calcium Gluconate 15 meq/ Multivitamins 10 ml/Chromium/ Copper/Manganese/ Seleni/Zn 0.5 ml/ Insulin Human Regular 25 unit/ Total Parenteral Nutrition/Amino Acids/Dextrose/ Fat Emulsion Intravenous 1,400 ml @ 58.333 mls/ hr TPN CONT IV Last administered on 07/22/19at 22:19; Start 07/22/19 at 22:00; Stop 07/23/19 at 21:59; Status DC Heparin Sodium (Porcine) (Heparin Sodium) 5,000 unit Q12HR SQ Last administered on 08/14/19at 08:59; Start 07/22/19 at 21:00; Stop 08/14/19 at 10:05; Status DC Ondansetron HCl (Zofran) 4 mg PRN Q6HRS PRN IV NAUSEA/VOMITING; Start 07/25/19 at 07:00; Stop 07/26/19 at 06:59; Status DC Fentanyl Citrate (Fentanyl 2ml Vial) 25 mcg PRN Q5MIN PRN IV MILD PAIN 1-3; Start 07/25/19 at 07:00; Stop 07/26/19 at 06:59; Status DC Fentanyl Citrate (Fentanyl 2ml Vial) 50 mcg PRN Q5MIN PRN IV MODERATE TO SEVERE PAIN; Start 07/25/19 at 07:00; Stop 07/26/19 at 06:59; Status DC Ringer's Solution 1,000 ml @ 30 mls/hr Q24H IV ; Start 07/25/19 at 07:00; Stop 07/25/19 at 18:59; Status DC Lidocaine HCl (Xylocaine-Mpf 1% 2ml Vial) 2 ml PRN 1X PRN ID PRIOR TO IV START; Start 07/25/19 at 07:00; Stop 07/26/19 at 06:59; Status DC Prochlorperazine Edisylate (Compazine) 5 mg PACU PRN PRN IV NAUSEA, MRX1; Start 07/25/19 at 07:00; Stop 07/26/19 at 06:59; Status DC Sodium Chloride 1,000 ml @ 1,000 mls/hr Q1H PRN IV hypotension; Start 07/23/19 at 09:10; Stop 07/23/19 at 15:09; Status DC Albumin Human 200 ml @ 200 mls/hr 1X PRN PRN IV Hypotension Last administered on 07/23/19at 10:10; Start 07/23/19 at 09:15; Stop 07/23/19 at 15:14; Status DC Sodium Chloride 1,000 ml @ 400 mls/hr Q2H30M PRN IV PATENCY; Start 07/23/19 at 09:10; Stop 07/23/19 at 21:09; Status DC Info (PHARMACY MONITORING -- do not chart) 1 each PRN DAILY PRN MC SEE COMMENTS; Start 07/23/19 at 09:15; Stop 07/24/19 at 12:45; Status DC Info (PHARMACY MONITORING -- do not chart) 1 each PRN DAILY PRN MC SEE COMMENTS; Start 07/23/19 at 09:15; Stop 07/24/19 at 12:45; Status DC Sodium Chloride 90 meq/Potassium Chloride 15 meq/ Potassium Phosphate 10 mmol/ Magnesium Sulfate 8 meq/Calcium Gluconate 15 meq/ Multivitamins 10 ml/Chromium/ Copper/Manganese/ Seleni/Zn 0.5 ml/ Insulin Human Regular 25 unit/ Total P arenteral Nutrition/Amino Acids/Dextrose/ Fat Emulsion Intravenous 1,400 ml @ 58.333 mls/ hr TPN CONT IV Last administered on 07/23/19at 22:10; Start 07/23/19 at 22:00; Stop 07/24/19 at 21:59; Status DC Magnesium Sulfate 50 ml @ 25 mls/hr PRN DAILY PRN IV for Mag < 1.7 on am labs Last administered on 08/08/19at 17:27; Start 07/24/19 at 09:15 Sodium Chloride 90 meq/Potassium Chloride 15 meq/ Potassium Phosphate 10 mmol/ Magnesium Sulfate 8 meq/Calcium Gluconate 15 meq/ Multivitamins 10 ml/Chromium/ Copper/Manganese/ Seleni/Zn 0.5 ml/ Insulin Human Regular 25 unit/ Total Parenteral Nutrition/Amino Acids/Dextrose/ Fat Emulsion Intravenous 1,400 ml @ 58.333 mls/ hr TPN CONT IV Last administered on 07/24/19at 21:20; Start 07/24/19 at 22:00; Stop 07/25/19 at 21:59; Status DC Sodium Chloride 1,000 ml @ 1,000 mls/hr Q1H PRN IV hypotension; Start 07/24/19 at 12:23; Stop 07/24/19 at 18:22; Status DC Albumin Human 200 ml @ 200 mls/hr 1X ONCE IV Last administered on 07/24/19at 13:34; Start 07/24/19 at 12:30; Stop 07/24/19 at 13:29; Status DC Diphenhydramine HCl (Benadryl) 25 mg 1X PRN PRN IV ITCHING; Start 07/24/19 at 12:30; Stop 07/25/19 at 12:29; Status DC Diphenhydramine HCl (Benadryl) 25 mg 1X PRN PRN IV ITCHING; Start 07/24/19 at 12:30; Stop 07/25/19 at 12:29; Status DC Info (PHARMACY MONITORING -- do not chart) 1 each PRN DAILY PRN MC SEE COMMENTS; Start 07/24/19 at 12:30; Status Cancel Bupivacaine HCl/ Epinephrine Bitart (Sensorcain-Epi 0.5%-1:[id number] Mpf) 30 ml STK-MED ONCE .ROUTE Last administered on 07/25/19at 11:44; Start 07/25/19 at 11:00; Stop 07/25/19 at 11:01; Status DC Cellulose (Surgicel Fibrillar 1x2) 1 each STK-MED ONCE .ROUTE ; Start 07/25/19 at 11:00; Stop 07/25/19 at 11:01; Status DC Sodium Chloride 90 meq/Potassium Chloride 15 meq/ Potassium Phosphate 10 mmol/ Magnesium Sulfate 12 meq/Calcium Gluconate 15 meq/ Multivitamins 10 ml/Chromium/ Copper/Manganese/ Seleni/Zn 0.5 ml/ Insulin Human Regular 25 unit/ Total Parenteral Nutrition/Amino Acids/Dextrose/ Fat Emulsion Intravenous 1,400 ml @ 58.333 mls/ hr TPN CONT IV Last administered on 07/25/19at 22:24; Start 07/25/19 at 22:00; Stop 07/26/19 at 21:59; Status DC Propofol 20 ml @ As Directed STK-MED ONCE IV ; Start 07/25/19 at 11:07; Stop 07/25/19 at 11:07; Status DC Cellulose (Surgicel Hemostat 4x8) 1 each STK-MED ONCE .ROUTE Last administered on 07/25/19at 11:44; Start 07/25/19 at 11:55; Stop 07/25/19 at 11:56; Status DC Sevoflurane (Ultane) 60 ml STK-MED ONCE IH ; Start 07/25/19 at 12:46; Stop 07/25/19 at 12:46; Status DC Sodium Chloride 1,000 ml @ 1,000 mls/hr Q1H PRN IV hypotension; Start 07/25/19 at 13:51; Stop 07/25/19 at 19:50; Status DC Albumin Human 200 ml @ 200 mls/hr 1X PRN PRN IV Hypotension Last administered on 07/25/19at 14:51; Start 07/25/19 at 14:00; Stop 07/25/19 at 19:59; Status DC Diphenhydramine HCl (Benadryl) 25 mg 1X PRN PRN IV ITCHING; Start 07/25/19 at 14:00; Stop 07/26/19 at 13:59; Status DC Diphenhydramine HCl (Benadryl) 25 mg 1X PRN PRN IV ITCHING; Start 07/25/19 at 14:00; Stop 07/26/19 at 13:59; Status DC Sodium Chloride 1,000 ml @ 400 mls/hr Q2H30M PRN IV PATENCY; Start 07/25/19 at 13:51; Stop 07/26/19 at 01:50; Status DC Info (PHARMACY MONITORING -- do not chart) 1 each PRN DAILY PRN MC SEE COMMENTS; Start 07/25/19 at 14:00; Stop 07/28/19 at 08:16; Status DC Heparin Sodium (Porcine) (Hep Lock Adult) 500 unit STK-MED ONCE IVP ; Start 07/26/19 at 09:29; Stop 07/26/19 at 09:30; Status DC Sodium Chloride 1,000 ml @ 1,000 mls/hr Q1H PRN IV hypotension; Start 07/26/19 at 10:43; Stop 07/26/19 at 16:42; Status DC Sodium Chloride 1,000 ml @ 400 mls/hr Q2H30M PRN IV PATENCY; Start 07/26/19 at 10:43; Stop 07/26/19 at 22:42; Status DC Info (PHARMACY MONITORING -- do not chart) 1 each PRN DAILY PRN MC SEE COMMENTS; Start 07/26/19 at 10:45; Status UNV Info (PHARMACY MONITORING -- do not chart) 1 each PRN DAILY PRN MC SEE COMMENTS; Start 07/26/19 at 10:45; Status UNV Sodium Chloride 90 meq/Potassium Chloride 15 meq/ Magnesium Sulfate 12 meq/Calcium Gluconate 15 meq/ Multivitamins 10 ml/Chromium/ Copper/Manganese/ Seleni/Zn 0.5 ml/ Insulin Human Regular 25 unit/ Total Parenteral Nutrition/Amino Acids/Dextrose/ Fat Emulsion Intravenous 1,400 ml @ 58.333 mls/ hr TPN CONT IV Last administered on 07/26/19at 22:13; Start 07/26/19 at 22:00; Stop 07/27/19 at 21:59; Status DC Sodium Chloride 1,000 ml @ 1,000 mls/hr Q1H PRN IV hypotension; Start 07/27/19 at 07:50; Stop 07/27/19 at 13:49; Status DC Albumin Human 200 ml @ 200 mls/hr 1X ONCE IV ; Start 07/27/19 at 08:00; Stop 07/27/19 at 08:53; Status DC Diphenhydramine HCl (Benadryl) 25 mg 1X PRN PRN IV ITCHING; Start 07/27/19 at 08:00; Stop 07/28/19 at 07:59; Status DC Diphenhydramine HCl (Benadryl) 25 mg 1X PRN PRN IV ITCHING; Start 07/27/19 at 08:00; Stop 07/28/19 at 07:59; Status DC Info (PHARMACY MONITORING -- do not chart) 1 each PRN DAILY PRN MC SEE COMMENTS; Start 07/27/19 at 08:00; Stop 07/28/19 at 08:16; Status DC Albumin Human 50 ml @ 50 mls/hr 1X ONCE IV ; Start 07/27/19 at 08:53; Stop 07/27/19 at 08:56; Status DC Albumin Human 200 ml @ 50 mls/hr PRN 1X PRN IV HYPOTENSION Last administered on 08/02/19at 11:54; Start 07/27/19 at 09:00 Meropenem 500 mg/ Sodium Chloride 50 ml @ 100 mls/hr Q12H IV Last administered on 08/16/19at 10:45; Start 07/27/19 at 10:00; Stop 08/16/19 at 12:37; Status DC Sodium Chloride 90 meq/Magnesium Sulfate 12 meq/ Calcium Gluconate 15 meq/ Multivitamins 10 ml/Chromium/ Copper/Manganese/ Seleni/Zn 0.5 ml/ Insulin Human Regular 25 unit/ Total Parenteral Nutrition/Amino Acids/Dextrose/ Fat Emulsion Intravenous 1,400 ml @ 58.333 mls/ hr TPN CONT IV Last administered on 07/27/19at 21:41; Start 07/27/19 at 22:00; Stop 07/28/19 at 21:59; Status DC Sodium Chloride 1,000 ml @ 1,000 mls/hr Q1H PRN IV hypotension; Start 07/28/19 at 07:58; Stop 07/28/19 at 13:57; Status DC Albumin Human 200 ml @ 200 mls/hr 1X PRN PRN IV Hypotension Last administered on 07/28/19at 09:30; Start 07/28/19 at 08:00; Stop 07/28/19 at 13:59; Status DC Sodium Chloride 1,000 ml @ 400 mls/hr Q2H30M PRN IV PATENCY; Start 07/28/19 at 07:58; Stop 07/28/19 at 19:57; Status DC Info (PHARMACY MONITORING -- do not chart) 1 each PRN DAILY PRN MC SEE COMMENTS; Start 07/28/19 at 08:00; Status Cancel Info (PHARMACY MONITORING -- do not chart) 1 each PRN DAILY PRN MC SEE COMMENTS; Start 07/28/19 at 08:15; Status UNV Sodium Chloride 90 meq/Potassium Phosphate 5 mmol/ Magnesium Sulfate 12 meq/Calcium Gluconate 15 meq/ Multivitamins 10 ml/Chromium/ Copper/Manganese/ Seleni/Zn 0.5 ml/ Insulin Human Regular 30 unit/ Total Parenteral Nutrition/Amino Acids/Dextrose/ Fat Emulsion Intravenous 1,400 ml @ 58.333 mls/ hr TPN CONT IV Last administered on 07/28/19at 22:08; Start 07/28/19 at 22:00; Stop 07/29/19 at 21:59; Status DC Linezolid/Dextrose 300 ml @ 300 mls/hr Q12HR IV Last administered on 08/08/19at 20:40; Start 07/29/19 at 11:00; Stop 08/09/19 at 08:10; Status DC Sodium Chloride 90 meq/Potassium Phosphate 15 mmol/ Magnesium Sulfate 12 meq/Calcium Gluconate 15 meq/ Multivitamins 10 ml/Chromium/ Copper/Manganese/ Se dinorah/Zn 0.5 ml/ Insulin Human Regular 30 unit/ Total Parenteral Nutrition/Amino Acids/Dextrose/ Fat Emulsion Intravenous 1,400 ml @ 58.333 mls/ hr TPN CONT IV Last administered on 07/29/19at 21:49; Start 07/29/19 at 22:00; Stop 07/30/19 at 21:59; Status DC Sodium Chloride 90 meq/Potassium Phosphate 15 mmol/ Magnesium Sulfate 12 meq/Calcium Gluconate 15 meq/ Multivitamins 10 ml/Chromium/ Copper/Manganese/ Seleni/Zn 0.5 ml/ Insulin Human Regular 40 unit/ Total Parenteral Nutrition/Amino Acids/Dextrose/ Fat Emulsion Intravenous 1,400 ml @ 58.333 mls/ hr TPN CONT IV Last administered on 07/30/19at 21:21; Start 07/30/19 at 22:00; Stop 07/31/19 at 21:59; Status DC Sodium Chloride 1,000 ml @ 1,000 mls/hr Q1H PRN IV hypotension; Start 07/30/19 at 13:26; Stop 07/30/19 at 19:25; Status DC Albumin Human 200 ml @ 200 mls/hr 1X PRN PRN IV Hypotension Last administered on 07/30/19at 15:00; Start 07/30/19 at 13:30; Stop 07/30/19 at 19:29; Status DC Sodium Chloride (Normal Saline Flush) 10 ml 1X PRN PRN IV AP catheter pack; Start 07/30/19 at 13:30; Stop 07/31/19 at 13:29; Status DC Sodium Chloride (Normal Saline Flush) 10 ml 1X PRN PRN IV [employer] catheter pack; Start 07/30/19 at 13:30; Stop 07/31/19 at 13:29; Status DC Sodium Chloride 1,000 ml @ 400 mls/hr Q2H30M PRN IV PATENCY; Start 07/30/19 at 13:26; Stop 07/31/19 at 01:25; Status DC Info (PHARMACY MONITORING -- do not chart) 1 each PRN DAILY PRN MC SEE COMMENTS; Start 07/30/19 at 13:30; Stop 07/30/19 at 13:33; Status DC Info (PHARMACY MONITORING -- do not chart) 1 each PRN DAILY PRN MC SEE COMMENTS; Start 07/30/19 at 13:30; Stop 07/30/19 at 13:34; Status DC Sodium Chloride 90 meq/Potassium Phosphate 19 mmol/ Magnesium Sulfate 12 meq/Calcium Gluconate 15 meq/ Multivitamins 10 ml/Chromium/ Copper/Manganese/ Seleni/Zn 0.5 ml/ Insulin Human Regular 40 unit/ Total Parenteral Nutrition/Amino Acids/Dextrose/ Fat Emulsion Intravenous 1,400 ml @ 58.333 mls/ hr TPN CONT IV Last administered on 07/31/19at 21:54; Start 07/31/19 at 22:00; Stop 08/01/19 at 21:59; Status DC Sodium Chloride 1,000 ml @ 1,000 mls/hr Q1H PRN IV hypotension; Start 08/01/19 at 09:35; Stop 08/01/19 at 15:34; Status DC Albumin Human 200 ml @ 200 mls/hr 1X PRN PRN IV Hypotension; Start 08/01/19 at 09:45; Stop 08/01/19 at 15:44; Status DC Diphenhydramine HCl (Benadryl) 25 mg 1X PRN PRN IV ITCHING; Start 08/01/19 at 09:45; Stop 08/02/19 at 09:44; Status DC Diphenhydramine HCl (Benadryl) 25 mg 1X PRN PRN IV ITCHING; Start 08/01/19 at 09:45; Stop 08/02/19 at 09:44; Status DC Sodium Chloride 1,000 ml @ 400 mls/hr Q2H30M PRN IV PATENCY; Start 08/01/19 at 09:35; Stop 08/01/19 at 21:34; Status DC Info (PHARMACY MONITORING -- do not chart) 1 each PRN DAILY PRN MC SEE COMMENTS; Start 08/01/19 at 09:45; Status Cancel Sodium Chloride 100 meq/Potassium Phosphate 19 mmol/ Magnesium Sulfate 12 meq/Calcium Gluconate 15 meq/ Multivitamins 10 ml/Chromium/ Copper/Manganese/ Seleni/Zn 0.5 ml/ Insulin Human Regular 40 unit/ Potassium Chloride 20 meq/ Total Parenteral Nutrition/Amino Acids/Dextrose/ Fat Emulsion Intravenous 1,400 ml @ 58.333 mls/ hr TPN CONT IV Last administered on 08/01/19at 22:02; Start 08/01/19 at 22:00; Stop 08/02/19 at 21:59; Status DC Furosemide (Lasix) 40 mg 1X ONCE IVP Last administered on 08/01/19at 14:39; Start 08/01/19 at 14:30; Stop 08/01/19 at 14:31; Status DC Metronidazole 100 ml @ 100 mls/hr Q8HRS IV Last administered on 08/09/19at 06:04; Start 08/02/19 at 10:00; Stop 08/09/19 at 08:10; Status DC Sodium Chloride 1,000 ml @ 1,000 mls/hr Q1H PRN IV hypotension; Start 08/02/19 at 08:00; Stop 08/02/19 at 13:59; Status DC Albumin Human 200 ml @ 200 mls/hr 1X PRN PRN IV Hypotension; Start 08/02/19 at 08:00; Stop 08/02/19 at 13:59; Status DC Sodium Chloride 1,000 ml @ 400 mls/hr Q2H30M PRN IV PATENCY; Start 08/02/19 at 08:00; Stop 08/02/19 at 19:59; Status DC Info (PHARMACY MONITORING -- do not chart) 1 each PRN DAILY PRN MC SEE COMMENTS; Start 08/02/19 at 11:30; Status UNV Info (PHARMACY MONITORING -- do not chart) 1 each PRN DAILY PRN MC SEE COMMENTS; Start 08/02/19 at 11:30; Stop 08/04/19 at 12:13; Status DC Sodium Chloride 100 meq/Potassium Phosphate 19 mmol/ Magnesium Sulfate 12 meq/Calcium Gluconate 15 meq/ Multivitamins 10 ml/Chromium/ Copper/Manganese/ Seleni/Zn 0.5 ml/ Insulin Human Regular 40 unit/ Potassium Chloride 20 meq/ Total Parenteral Nutrition/Amino Acids/Dextrose/ Fat Emulsion Intravenous 1,400 ml @ 58.333 mls/ hr TPN CONT IV Last administered on 08/02/19at 21:52; Start 08/02/19 at 22:00; Stop 08/03/19 at 21:59; Status DC Sodium Chloride (Normal Saline Flush) 10 ml QSHIFT PRN IV AFTER MEDS AND BLOOD DRAWS; Start 08/02/19 at 15:00 Sodium Chloride (Normal Saline Flush) 10 ml PRN Q5MIN PRN IV AFTER MEDS AND BLOOD DRAWS; Start 08/02/19 at 15:00 Sodium Chloride (Normal Saline Flush) 20 ml PRN Q5MIN PRN IV AFTER MEDS AND BLOOD DRAWS; Start 08/02/19 at 15:00 Sodium Chloride 100 meq/Potassium Phosphate 19 mmol/ Magnesium Sulfate 12 m eq/Calcium Gluconate 15 meq/ Multivitamins 10 ml/Chromium/ Copper/Manganese/ Seleni/Zn 0.5 ml/ Insulin Human Regular 40 unit/ Potassium Chloride 20 meq/ Total Parenteral Nutrition/Amino Acids/Dextrose/ Fat Emulsion Intravenous 1,400 ml @ 58.333 mls/ hr TPN CONT IV Last administered on 08/03/19at 21:20; Start 08/03/19 at 22:00; Stop 08/04/19 at 21:59; Status DC Lidocaine HCl (Buffered Lidocaine 1%) 3 ml STK-MED ONCE .ROUTE ; Start 08/03/19 at 13:16; Stop 08/03/19 at 13:16; Status DC Lidocaine HCl (Buffered Lidocaine 1%) 6 ml 1X ONCE INJ Last administered on 08/03/19at 13:45; Start 08/03/19 at 13:30; Stop 08/03/19 at 13:31; Status DC Albumin Human 100 ml @ 100 mls/hr 1X ONCE IV Last administered on 08/03/19at 15:41; Start 08/03/19 at 15:00; Stop 08/03/19 at 15:59; Status DC Albumin Human 50 ml @ 50 mls/hr 1X ONCE IV Last administered on 08/03/19at 15:00; Start 08/03/19 at 15:00; Stop 08/03/19 at 15:59; Status DC Info (PHARMACY MONITORING -- do not chart) 1 each PRN DAILY PRN MC SEE COMMENTS; Start 08/04/19 at 11:30; Status Cancel Info (PHARMACY MONITORING -- do not chart) 1 each PRN DAILY PRN MC SEE COMMENTS; Start 08/04/19 at 11:30; Status UNV Sodium Chloride 100 meq/Potassium Phosphate 10 mmol/ Magnesium Sulfate 12 meq/Calcium Gluconate 15 meq/ Multivitamins 10 ml/Chromium/ Copper/Manganese/ Seleni/Zn 0.5 ml/ Insulin Human Regular 35 unit/ Potassium Chloride 20 meq/ Tota l Parenteral Nutrition/Amino Acids/Dextrose/ Fat Emulsion Intravenous 1,400 ml @ 58.333 mls/ hr TPN CONT IV Last administered on 08/04/19at 22:10; Start 08/04/19 at 22:00; Stop 08/05/19 at 21:59; Status DC Sodium Chloride 100 meq/Potassium Phosphate 5 mmol/ Magnesium Sulfate 12 meq/Calcium Gluconate 15 meq/ Multivitamins 10 ml/Chromium/ Copper/Manganese/ Seleni/Zn 0.5 ml/ Insulin Human Regular 35 unit/ Potassium Chloride 20 meq/ Total Parenteral Nutrition/Amino Acids/Dextrose/ Fat Emulsion Intravenous 1,400 ml @ 58.333 mls/ hr TPN CONT IV Last administered on 08/05/19at 22:59; Start 08/05/19 at 22:00; Stop 08/06/19 at 21:59; Status DC Sodium Chloride 1,000 ml @ 1,000 mls/hr Q1H PRN IV hypotension; Start 08/06/19 at 08:27; Stop 08/06/19 at 14:26; Status DC Albumin Human 200 ml @ 200 mls/hr 1X PRN PRN IV Hypotension Last administered on 08/06/19at 09:18; Start 08/06/19 at 08:30; Stop 08/06/19 at 14:29; Status DC Sodium Chloride 1,000 ml @ 400 mls/hr Q2H30M PRN IV PATENCY; Start 08/06/19 at 08:27; Stop 08/06/19 at 20:26; Status DC Info (PHARMACY MONITORING -- do not chart) 1 each PRN DAILY PRN MC SEE COMMENTS; Start 08/06/19 at 08:30; Status Cancel Info (PHARMACY MONITORING -- do not chart) 1 each PRN DAILY PRN MC SEE COMMENTS; Start 08/06/19 at 08:30; Stop 08/14/19 at 13:10; Status DC Sodium Chloride 100 meq/Potassium Chloride 40 meq/ Magnesium Sulfate 15 meq/Calcium Gluconate 15 meq/ Multivitamins 10 ml/Chromium/ Copper/Manganese/ Seleni/Zn 0.5 ml/ Insulin Human Regular 35 unit/ Total Parenteral Nutrition/Amino Acids/Dextrose/ Fat Emulsion Intravenous 1,400 ml @ 58.333 mls/ hr TPN CONT IV Last administered on 08/06/19at 22:00; Start 08/06/19 at 22:00; Stop 08/07/19 at 21:59; Status DC Potassium Chloride/Water 100 ml @ 100 mls/hr 1X ONCE IV Last administered on 08/06/19at 17:28; Start 08/06/19 at 14:45; Stop 08/06/19 at 15:44; Status DC Sodium Chloride 100 meq/Potassium Chloride 40 meq/ Magnesium Sulfate 15 meq/Calcium Gluconate 15 meq/ Multivitamins 10 ml/Chromium/ Copper/Manganese/ Seleni/Zn 0.5 ml/ Insulin Human Regular 35 unit/ Total Parenteral Nutrition/Amino Acids/Dextrose/ Fat Emulsion Intravenous 1,400 ml @ 58.333 mls/ hr TPN CONT IV Last administered on 08/07/19at 22:46; Start 08/07/19 at 22:00; Stop 08/08/19 at 21:59; Status DC Sodium Chloride 100 meq/Potassium Chloride 40 meq/ Magnesium Sulfate 20 meq/Calcium Gluconate 15 meq/ Multivitamins 10 ml/Chromium/ Copper/Manganese/ Seleni/Zn 0.5 ml/ Insulin Human Regular 35 unit/ Total Parenteral Nutrition/Amino Acids/Dextrose/ Fat Emulsion Intravenous 1,400 ml @ 58.333 mls/ hr TPN CONT IV Last administered on 08/08/19at 22:31; Start 08/08/19 at 22:00; Stop 08/09/19 at 21:59; Status DC Fentanyl Citrate (Fentanyl 2ml Vial) 50 mcg PRN Q2HR PRN IVP PAIN Last administered on 08/15/19at 13:32; Start 08/08/19 at 21:00; Stop 08/16/19 at 12:53; Status DC Fentanyl Citrate (Fentanyl 2ml Vial) 25 mcg PRN Q2HR PRN IVP PAIN; Start 08/08/19 at 21:00; Stop 08/16/19 at 12:54; Status DC Enoxaparin Sodium (Lovenox 100mg Syringe) 100 mg Q12HR SQ ; Start 08/09/19 at 21:00; Status UNV Amino Acids/ Glycerin/ Electrolytes 1,000 ml @ 75 mls/hr [id number] IV ; Start 08/08/19 at 21:15; Status UNV Sodium Chloride 1,000 ml @ 1,000 mls/hr Q1H PRN IV hypotension; Start 08/09/19 at 07:56; Stop 08/09/19 at 13:55; Status DC Albumin Human 200 ml @ 200 mls/hr 1X PRN PRN IV Hypotension Last administered on 08/09/19at 08:40; Start 08/09/19 at 08:00; Stop 08/09/19 at 13:59; Status DC Sodium Chloride 1,000 ml @ 400 mls/hr Q2H30M PRN IV PATENCY; Start 08/09/19 at 07:56; Stop 08/09/19 at 19:55; Status DC Info (PHARMACY MONITORING -- do not chart) 1 each PRN DAILY PRN MC SEE COMMENTS; Start 08/09/19 at 08:00; Status UNV Info (PHARMACY MONITORING -- do not chart) 1 each PRN DAILY PRN MC SEE COMMENTS; Start 08/09/19 at 08:00; Status UNV Daptomycin 430 mg/ Sodium Chloride 50 ml @ 100 mls/hr Q24H IV Last administered on 08/09/19at 12:35; Start 08/09/19 at 09:00; Stop 08/09/19 at 12:49; Status DC Sodium Chloride 100 meq/Potassium Chloride 40 meq/ Magnesium Sulfate 20 meq/Ca lcium Gluconate 15 meq/ Multivitamins 10 ml/Chromium/ Copper/Manganese/ Seleni/Zn 0.5 ml/ Insulin Human Regular 35 unit/ Total Parenteral Nutrition/Amino Acids/Dextrose/ Fat Emulsion Intravenous 1,400 ml @ 58.333 mls/ hr TPN CONT IV Last administered on 08/09/19at 21:26; Start 08/09/19 at 22:00; Stop 08/10/19 at 21:59; Status DC Daptomycin 430 mg/ Sodium Chloride 50 ml @ 100 mls/hr Q48H IV ; Start 08/11/19 at 09:00; Stop 08/10/19 at 11:55; Status DC Sodium Chloride 100 meq/Potassium Chloride 40 meq/ Magnesium Sulfate 20 meq/Calcium Gluconate 15 meq/ Multivitamins 10 ml/Chromium/ Copper/Manganese/ Seleni/Zn 0.5 ml/ Insulin Human Regular 35 unit/ Total Parenteral Nutrition/Amino Acids/Dextrose/ Fat Emulsion Intravenous 1,400 ml @ 58.333 mls/ hr TPN CONT IV Last administered on 08/10/19at 22:27; Start 08/10/19 at 22:00; Stop 08/11/19 at 21:59; Status DC Daptomycin 430 mg/ Sodium Chloride 50 ml @ 100 mls/hr Q24H IV Last administered on 08/12/19at 15:07; Start 08/10/19 at 13:00; Stop 08/13/19 at 13:15; Status DC Sodium Chloride 100 meq/Potassium Chloride 40 meq/ Magnesium Sulfate 20 meq/Calcium Gluconate 10 meq/ Multivitamins 10 ml/Chromium/ Copper/Manganese/ Seleni/Zn 0.5 ml/ Insulin Human Regular 35 unit/ Total Parenteral Nutrition/Amino Acids/Dextrose/ Fat Emulsion Intravenous 1,400 ml @ 58.333 mls/ hr TPN CONT IV Last administered on 08/12/19at 00:06; Start 08/11/19 at 22:00; Stop 08/12/19 at 21:59; Status DC Alteplase, Recombinant (Cathflo For Central Catheter Clearance) 1 mg 1X ONCE INT CAT Last administered on 08/12/19at 11:44; Start 08/12/19 at 10:45; Stop 08/12/19 at 10:46; Status DC Ondansetron HCl (Zofran) 4 mg PRN Q6HRS PRN IV NAUSEA/VOMITING; Start 08/15/19 at 07:00; Stop 08/16/19 at 06:59; Status DC Fentanyl Citrate (Fentanyl 2ml Vial) 25 mcg PRN Q5MIN PRN IV MILD PAIN 1-3; Start 08/15/19 at 07:00; Stop 08/16/19 at 06:59; Status DC Fentanyl Citrate (Fentanyl 2ml Vial) 50 mcg PRN Q5MIN PRN IV MODERATE TO SEVERE PAIN Last administered on 08/15/19at 10:17; Start 08/15/19 at 07:00; Stop at 06:59; Status DC Ringer's Solution 1,000 ml @ 30 mls/hr Q24H IV ; Start 08/15/19 at 07:00; Stop 08/15/19 at 18:59; Status DC Lidocaine HCl (Xylocaine-Mpf 1% 2ml Vial) 2 ml PRN 1X PRN ID PRIOR TO IV START; Start 08/15/19 at 07:00; Stop 08/16/19 at 06:59; Status DC Prochlorperazine Edisylate (Compazine) 5 mg PACU PRN PRN IV NAUSEA, MRX1; Start 08/15/19 at 07:00; Stop 08/16/19 at 06:59; Status DC Sodium Acetate 50 meq/Potassium Acetate 55 meq/ Magnesium Sulfate 20 meq/Calcium Gluconate 10 meq/ Multivitamins 10 ml/Chromium/ Copper/Manganese/ Seleni/Zn 0.5 ml/ Insulin Human Regular 35 unit/ Total Parenteral Nutrition/Amino Acids/Dextrose/ Fat Emulsion Intravenous 1,400 ml @ 58.333 mls/ hr TPN CONT IV ; Start 08/12/19 at 22:00; Stop 08/12/19 at 14:15; Status DC Sodium Acetate 50 meq/Potassium Acetate 55 meq/ Magnesium Sulfate 20 meq/Calcium Gluconate 10 meq/ Multivitamins 10 ml/Chromium/ Copper/Manganese/ Seleni/Zn 0.5 ml/ Insulin Human Regular 35 unit/ Total Parenteral Nutrition/Amino Acids/Dex trose/ Fat Emulsion Intravenous 1,800 ml @ 75 mls/hr TPN CONT IV Last administered on 08/12/19at 22:38; Start 08/12/19 at 22:00; Stop 08/13/19 at 21:59; Status DC Sodium Chloride 1,000 ml @ 1,000 mls/hr Q1H PRN IV hypotension; Start 08/12/19 at 15:31; Stop 08/12/19 at 21:30; Status DC Diphenhydramine HCl (Benadryl) 25 mg 1X PRN PRN IV ITCHING; Start 08/12/19 at 15:45; Stop 08/13/19 at 15:44; Status DC Diphenhydramine HCl (Benadryl) 25 mg 1X PRN PRN IV ITCHING; Start 08/12/19 at 15:45; Stop 08/13/19 at 15:44; Status DC Sodium Chloride 1,000 ml @ 400 mls/hr Q2H30M PRN IV PATENCY; Start 08/12/19 at 15:31; Stop 08/13/19 at 03:30; Status DC Info (PHARMACY MONITORING -- do not chart) 1 each PRN DAILY PRN MC SEE COMMENTS; Start 08/12/19 at 15:45 Sodium Acetate 50 meq/Potassium Acetate 55 meq/ Magnesium Sulfate 20 meq/Calcium Gluconate 10 meq/ Multivitamins 10 ml/Chromium/ Copper/Manganese/ Seleni/Zn 0.5 ml/ Insulin Human Regular 35 unit/ Total Parenteral Nutrition/Amino Acids/Dextrose/ Fat Emulsion Intravenous 1,800 ml @ 75 mls/hr TPN CONT IV Last administered on 08/13/19at 22:03; Start 08/13/19 at 22:00; Stop 08/14/19 at 21:59; Status DC Daptomycin 430 mg/ Sodium Chloride 50 ml @ 100 mls/hr Q24H IV Last administered on 08/18/19at 13:00; Start 08/13/19 at 13:00; Stop 08/18/19 at 20:58; Status DC Heparin Sodium (Porcine) 1000 unit/Sodium Chloride 1,001 ml @ 1,001 mls/hr 1X ONCE IRR ; Start 08/15/19 at 06:00; Stop 08/15/19 at 06:59; Status DC Potassium Acetate 55 meq/Magnesium Sulfate 20 meq/ Calcium Gluconate 10 meq/ Multivitamins 10 ml/Chromium/ Copper/Manganese/ Seleni/Zn 0.5 ml/ Insulin Human Regular 35 unit/ Total Parenteral Nutrition/Amino Acids/Dextrose/ Fat Emulsion Intravenous 1,920 ml @ 80 mls/hr TPN CONT IV Last administered on 08/14/19at 22:10; Start 08/14/19 at 22:00; Stop 08/15/19 at 21:59; Status DC Dexamethasone Sodium Phosphate (Decadron) 4 mg STK-MED ONCE .ROUTE ; Start 08/15/19 at 10:56; Stop 08/15/19 at 10:57; Status DC Ondansetron HCl (Zofran) 4 mg STK-MED ONCE .ROUTE ; Start 08/15/19 at 10:56; Stop 08/15/19 at 10:57; Status DC Rocuronium [place] (Zemuron) 50 mg STK-MED ONCE .ROUTE ; Start 08/15/19 at 10:56; Stop 08/15/19 at 10:57; Status DC Fentanyl Citrate (Fentanyl 2ml Vial) 100 mcg STK-MED ONCE .ROUTE ; Start 08/15/19 at 10:56; Stop 08/15/19 at 10:57; Status DC Bupivacaine HCl/ Epinephrine Bitart (Sensorcain-Epi 0.5%-1:[id number] Mpf) 30 ml STK-MED ONCE .ROUTE Last administered on 08/15/19at 12:01; Start 08/15/19 at 10:58; Stop 08/15/19 at 10:58; Status DC Cellulose (Surgicel Hemostat 2x14) 1 each STK-MED ONCE .ROUTE ; Start 08/15/19 at 10:58; Stop 08/15/19 at 10:59; Status DC Iohexol (Omnipaque 300 Mg/ml) 50 ml STK-MED ONCE .ROUTE ; Start 08/15/19 at 10:58; Stop 08/15/19 at 10:59; Status DC Cellulose (Surgicel Hemostat 4x8) 1 each STK-MED ONCE .ROUTE ; Start 08/15/19 at 10:58; Stop 08/15/19 at 10:59; Status DC Bisacodyl (Dulcolax Supp) 10 mg STK-MED ONCE .ROUTE ; Start 08/15/19 at 10:59; Stop 08/15/19 at 10:59; Status DC Heparin Sodium (Porcine) 1000 unit/Sodium Chloride 1,001 ml @ 1,001 mls/hr 1X ONCE IRR ; Start 08/15/19 at 12:00; Stop 08/15/19 at 12:59; Status DC Propofol 20 ml @ As Directed STK-MED ONCE IV ; Start 08/15/19 at 11:05; Stop 08/15/19 at 11:05; Status DC Sevoflurane (Ultane) 90 ml STK-MED ONCE IH ; Start 08/15/19 at 11:05; Stop 08/15/19 at 11:05; Status DC Sevoflurane (Ultane) 60 ml STK-MED ONCE IH ; Start 08/15/19 at 12:26; Stop 08/15/19 at 12:27; Status DC Propofol 20 ml @ As Directed STK-MED ONCE IV ; Start 08/15/19 at 12:26; Stop 08/15/19 at 12:27; Status DC Phenylephrine HCl (PHENYLEPHRINE in 0.9% NACL PF) 1 mg STK-MED ONCE IV ; Start 08/15/19 at 12:34; Stop 08/15/19 at 12:34; Status DC Heparin Sodium (Porcine) (Heparin Sodium) 5,000 unit Q12HR SQ Last administered on 08/24/19at 20:57; Start 08/15/19 at 21:00; Stop 08/25/19 at 09:59; Status DC Sodium Chloride (Normal Saline Flush) 3 ml QSHIFT PRN IV AFTER MEDS AND BLOOD DRAWS; Start 08/15/19 at 13:45 Naloxone HCl (Narcan) 0.4 mg PRN Q2MIN PRN IV SEE INSTRUCTIONS; Start 08/15/19 at 13:45 Sodium Chloride 1,000 ml @ 25 mls/hr Q24H IV Last administered on 08/27/19at 02:30; Start 08/15/19 at 13:37 Naloxone HCl (Narcan) 0.4 mg PRN Q2MIN PRN IV SEE INSTRUCTIONS; Start 08/15/19 at 14:30; Status UNV Sodium Chloride 1,000 ml @ 25 mls/hr Q24H IV ; Start 08/15/19 at 14:30; Status UNV Hydromorphone HCl 30 ml @ 0 mls/hr CONT PRN PRN IV PER PROTOCOL Last administered on 08/20/19at 16:08; Start 08/15/19 at 14:30; Stop 08/22/19 at 08:55; Status DC Potassium Acetate 55 meq/Magnesium Sulfate 20 meq/ Calcium Gluconate 10 meq/ Multivitamins 10 ml/Chromium/ Copper/Manganese/ Seleni/Zn 0.5 ml/ Insulin Human Regular 35 unit/ Total Parenteral Nutrition/Amino Acids/Dextrose/ Fat Emulsion Intravenous 1,920 ml @ 80 mls/hr TPN CONT IV Last administered on 08/15/19at 22:01; Start 08/15/19 at 22:00; Stop 08/16/19 at 21:59; Status DC Bumetanide (Bumex) 2 mg [id number] IV Last administered on 08/19/19at 13:50; Start 08/16/19 at 14:00; Stop 08/20/19 at 14:10; Status DC Meropenem 1 gm/ Sodium Chloride 100 ml @ 200 mls/hr Q8HRS IV Last administered on 08/28/19at 06:26; Start 08/16/19 at 14:00 Potassium Acetate 55 meq/Magnesium Sulfate 20 meq/ Calcium Gluconate 10 meq/ Multivitamins 10 ml/Chromium/ Copper/Manganese/ Seleni/Zn 0.5 ml/ Insulin Human Regular 35 unit/ Total Parenteral Nutrition/Amino Acids/Dextrose/ Fat Emulsion Intravenous 1,920 ml @ 80 mls/hr TPN CONT IV Last administered on 08/16/19at 22:02; Start 08/16/19 at 22:00; Stop 08/17/19 at 21:59; Status DC Hydromorphone HCl (Dilaudid Standard RE DYE HAND) 12 mg STK-MED ONCE IV ; Start 08/15/19 at 14:35; Stop 08/16/19 at 13:53; Status DC Artificial Tears (Artificial Tears) 1 drop PRN Q15MIN PRN OU DRY EYE Last administered on 08/26/19at 22:00; Start 08/17/19 at 05:30 Hydromorphone HCl (Dilaudid Standard RE DYE HAND) 12 mg STK-MED ONCE IV ; Start 08/16/19 at 12:05; Stop 08/17/19 at 09:15; Status DC Potassium Acetate 65 meq/Magnesium Sulfate 20 meq/ Calcium Gluconate 10 meq/ Multivitamins 10 ml/Chromium/ Copper/Manganese/ Seleni/Zn 0.5 ml/ Insulin Human Regular 30 unit/ Total Parenteral Nutrition/Amino Acids/Dextrose/ Fat Emulsion Intravenous 1,920 ml @ 80 mls/hr TPN CONT IV Last administered on 08/17/19at 22:22; Start 08/17/19 at 22:00; Stop 08/18/19 at 21:59; Status DC Cyclobenzaprine HCl (Flexeril) 10 mg PRN Q6HRS PRN PO MUSCLE SPASMS; Start 08/18/19 at 10:45 Potassium Acetate 55 meq/Magnesium Sulfate 20 meq/ Calcium Gluconate 10 meq/ Multivitamins 10 ml/Chromium/ Copper/Manganese/ Seleni/Zn 0.5 ml/ Insulin Human Regular 30 unit/ Total Parenteral Nutrition/Amino Acids/Dextrose/ Fat Emulsion Intravenous 1,920 ml @ 80 mls/hr TPN CONT IV Last administered on 08/19/19at 01:00; Start 08/18/19 at 22:00; Stop 08/19/19 at 21:59; Status DC Magnesium Sulfate 50 ml @ 25 mls/hr 1X ONCE IV Last administered on 08/18/19at 17:18; Start 08/18/19 at 12:45; Stop 08/18/19 at 14:44; Status DC Potassium Chloride/Water 100 ml @ 100 mls/hr 1X ONCE IV Last administered on 08/19/19at 11:27; Start 08/19/19 at 12:00; Stop 08/19/19 at 12:59; Status DC Hydromorphone HCl (Dilaudid Standard RE DYE HAND) 12 mg STK-MED ONCE IV ; Start 08/17/19 at 10:50; Stop 08/19/19 at 11:02; Status DC Hydromorphone HCl (Dilaudid Standard RE DYE HAND) 12 mg STK-MED ONCE IV ; Start 08/18/19 at 13:47; Stop 08/19/19 at 11:03; Status DC Potassium Acetate 30 meq/Magnesium Sulfate 20 meq/ Calcium Gluconate 10 meq/ Multivitamins 10 ml/Chromium/ Copper/Manganese/ Seleni/Zn 0.5 ml/ Insulin Human Regular 30 unit/ Potassium Chloride 30 meq/ Total Parenteral Nutrition/Amino Acids/Dextrose/ Fat Emulsion Intravenous 1,920 ml @ 80 mls/hr TPN CONT IV Last administered on 08/19/19at 22:34; Start 08/19/19 at 22:00; Stop 08/20/19 at 21:59; Status DC Potassium Chloride/Water 100 ml @ 100 mls/hr Q1H IV Last administered on 08/20/19at 13:05; Start 08/20/19 at 07:00; Stop 08/20/19 at 10:59; Status DC Magnesium Sulfate 50 ml @ 25 mls/hr 1X ONCE IV Last administered on 08/20/19at 10:34; Start 08/20/19 at 10:30; Stop 08/20/19 at 12:29; Status DC Potassium Chloride 75 meq/ Magnesium Sulfate 20 meq/Calcium Gluconate 10 meq/ Multivitamins 10 ml/Chromium/ Copper/Manganese/ Seleni/Zn 0.5 ml/ Insulin Human Regular 30 unit/ Total Parenteral Nutrition/Amino Acids/Dextrose/ Fat Emulsion Intravenous 1,920 ml @ 80 mls/hr TPN CONT IV Last administered on 08/20/19at 21:51; Start 08/20/19 at 22:00; Stop 08/21/19 at 22:00; Status DC Potassium Chloride 75 meq/ Magnesium Sulfate 20 meq/Calcium Gluconate 10 meq/ Multivitamins 10 ml/Chromium/ Copper/Manganese/ Seleni/Zn 0.5 ml/ Insulin Human Regular 25 unit/ Total Parenteral Nutrition/Amino Acids/Dextrose/ Fat Emulsion Intravenous 1,920 ml @ 80 mls/hr TPN CONT IV Last administered on 08/21/19at 22:04; Start 08/21/19 at 22:00; Stop 08/22/19 at 21:59; Status DC Hydromorphone HCl (Dilaudid) 0.4 mg PRN Q4HRS PRN IVP PAIN Last administered on 08/22/19at 10:57; Start 08/22/19 at 09:00; Stop 08/22/19 at 18:59; Status DC Micafungin Sodium 100 mg/Dextrose 100 ml @ 100 mls/hr Q24H IV Last administered on 08/28/19at 12:14; Start 08/22/19 at 11:00 Daptomycin 485 mg/ Sodium Chloride 50 ml @ 100 mls/hr Q24H IV Last administered on 08/28/19at 12:09; Start 08/22/19 at 11:00 Potassium Chloride 75 meq/ Magnesium Sulfate 15 meq/Calcium Gluconate 8 meq/ Multivitamins 10 ml/Chromium/ Copper/Manganese/ Seleni/Zn 0.5 ml/ Insulin Human Regular 25 unit/ Total Parenteral Nutrition/Amino Acids/Dextrose/ Fat Emulsion Intravenous 1,920 ml @ 80 mls/hr TPN CONT IV Last administered on 08/22/19at 23:08; Start 08/22/19 at 22:00; Stop 08/23/19 at 21:59; Status DC Haloperidol Lactate (Haldol Inj) 3 mg 1X ONCE IVP Last administered on 08/22/19at 14:37; Start 08/22/19 at 14:30; Stop 08/22/19 at 14:31; Status DC Hydromorphone HCl (Dilaudid) 1 mg PRN Q4HRS PRN IVP PAIN Last administered on 08/28/19at 12:10; Start 08/22/19 at 19:00 Potassium Chloride 75 meq/ Magnesium Sulfate 15 meq/Calcium Gluconate 8 meq/ Multivitamins 10 ml/Chromium/ Copper/Manganese/ Seleni/Zn 0.5 ml/ Insulin Human Regular 20 unit/ Total Parenteral Nutrition/Amino Acids/Dextrose/ Fat Emulsion Intravenous 1,920 ml @ 80 mls/hr TPN CONT IV Last administered on 08/23/19at 22:10; Start 08/23/19 at 22:00; Stop 08/24/19 at 21:59; Status DC Lidocaine HCl (Buffered Lidocaine 1%) 3 ml STK-MED ONCE .ROUTE ; Start 08/24/19 at 11:31; Stop 08/24/19 at 11:31; Status DC Lidocaine HCl (Buffered Lidocaine 1%) 3 ml STK-MED ONCE .ROUTE ; Start 08/24/19 at 12:28; Stop 08/24/19 at 12:29; Status DC Lidocaine HCl (Buffered Lidocaine 1%) 6 ml 1X ONCE INJ Last administered on 08/24/19at 12:53; Start 08/24/19 at 12:45; Stop 08/24/19 at 12:46; Status DC Potassium Chloride 75 meq/ Magnesium Sulfate 15 meq/Calcium Gluconate 8 meq/ Multivitamins 10 ml/Chromium/ Copper/Manganese/ Seleni/Zn 0.5 ml/ Insulin Human Regular 20 unit/ Total Parenteral Nutrition/Amino Acids/Dextrose/ Fat Emulsion Intravenous 1,920 ml @ 80 mls/hr TPN CONT IV Last administered on 08/24/19at 22:00; Start 08/24/19 at 22:00; Stop 08/25/19 at 21:59; Status DC Potassium Chloride 75 meq/ Magnesium Sulfate 15 meq/Calcium Gluconate 8 meq/ Multivitamins 10 ml/Chromium/ Copper/Manganese/ Seleni/Zn 0.5 ml/ Insulin Human Regular 15 unit/ Total Parenteral Nutrition/Amino Acids/Dextrose/ Fat Emulsion Intravenous 1,920 ml @ 80 mls/hr TPN CONT IV Last administered on 08/25/19at 22:28; Start 08/25/19 at 22:00; Stop 08/26/19 at 21:59; Status DC Vecuronium [place] (Norcuron Bolus) 6 mg PRN Q6HRS PRN IV VENT ASYNCHRONY; Start 08/25/19 at 19:15; Stop 08/25/19 at 19:35; Status DC Bumetanide (Bumex) 2 mg 1X ONCE IV Last administered on 08/25/19at 22:09; Start 08/25/19 at 19:45; Stop 08/25/19 at 19:46; Status DC Lidocaine HCl (Buffered Lidocaine 1%) 3 ml STK-MED ONCE .ROUTE ; Start 08/26/19 at 07:59; Stop 08/26/19 at 07:59; Status DC Midazolam HCl (Versed) 5 mg STK-MED ONCE .ROUTE ; Start 08/26/19 at 08:36; Stop 08/26/19 at 08:36; Status DC Fentanyl Citrate (Fentanyl 5ml Vial) 250 mcg STK-MED ONCE .ROUTE ; Start 08/26/19 at 08:36; Stop 08/26/19 at 08:37; Status DC Lidocaine HCl (Buffered Lidocaine 1%) 3 ml 1X ONCE IJ Last administered on 08/26/19at 09:30; Start 08/26/19 at 09:15; Stop 08/26/19 at 09:16; Status DC Midazolam HCl (Versed) 5 mg 1X ONCE IV Last administered on 08/26/19at 09:30; Start 08/26/19 at 09:15; Stop 08/26/19 at 09:16; Status DC Fentanyl Citrate (Fentanyl 5ml Vial) 250 mcg 1X ONCE IV Last administered on 08/26/19at 09:30; Start 08/26/19 at 09:15; Stop 08/26/19 at 09:16; Status DC Bumetanide (Bumex) 2 mg DAILY IV Last administered on 08/28/19at 10:48; Start 08/26/19 at 10:00 Potassium Chloride 75 meq/ Magnesium Sulfate 15 meq/ Multivitamins 10 ml/Chromium/ Copper/Manganese/ Seleni/Zn 0.5 ml/ Insulin Human Regular 15 unit/ Total Parenteral Nutrition/Amino Acids/Dextrose/ Fat Emulsion Intravenous 1,920 ml @ 80 mls/hr TPN CONT IV Last administered on 08/26/19at 21:59; Start 08/26/19 at 22:00; Stop 08/27/19 at 21:59; Status DC Metoclopramide HCl (Reglan Vial) 10 mg PRN Q3HRS PRN IVP NAUSEA/VOMITING-3rd choice Last administered on 08/28/19at 08:06; Start 08/27/19 at 16:45 Potassium Chloride 75 meq/ Magnesium Sulfate 15 meq/ Multivitamins 10 ml/Chromium/ Copper/Manganese/ Seleni/Zn 0.5 ml/ Insulin Human Regular 15 unit/ Total Parenteral Nutrition/Amino Acids/Dextrose/ Fat Emulsion Intravenous 1,920 ml @ 80 mls/hr TPN CONT IV Last administered on 08/27/19at 22:41; Start 08/27/19 at 22:00; Stop 08/28/19 at 21:59 Magnesium Sulfate 50 ml @ 25 mls/hr 1X ONCE IV Last administered on 08/28/19at 10:44; Start 08/28/19 at 09:00; Stop 08/28/19 at 10:59; Status DC Potassium Chloride/Water 100 ml @ 100 mls/hr 1X ONCE IV Last administered on 08/28/19at 09:37; Start 08/28/19 at 09:00; Stop 08/28/19 at 09:59; Status DC Duloxetine HCl (Cymbalta) 30 mg DAILY PO ; Start 08/28/19 at 14:00 Potassium Chloride 80 meq/ Magnesium Sulfate 20 meq/ Multivitamins 10 ml/Chromium/ Copper/Manganese/ Seleni/Zn 0.5 ml/ Insulin Human Regular 15 unit/ Total Parenteral Nutrition/Amino Acids/Dextrose/ Fat Emulsion Intravenous 1,920 ml @ 80 mls/hr TPN CONT IV ; Start 08/28/19 at 22:00; Stop 08/29/19 at 21:59 Active Scripts Active Reported Bisoprolol Fumarate 5 Mg Tablet 10 Mg PO DAILY Vitals/I & O Vital Sign - Last 24 Hours 08/27/19 08/27/19 08/27/19 08/27/19 14:00 15:00 15:16 15:30 Pulse 96 96 Resp 27 27 B/P (MAP) 118/61 (80) 135/90 (105) Pulse Ox 98 98 97 97 O2 Delivery Ventilator Ventilator Ventilator Ventilator 08/27/19 08/27/19 08/27/19 08/27/19 16:00 16:00 16:00 17:00 Temp 98.1 98.1 Pulse 96 104 Resp 27 24 B/P (MAP) 131/61 (84) 132/87 (102) Pulse Ox 98 98 99 O2 Delivery Ventilator Ventilator Trach Collar Ventilator 08/27/19 08/27/19 08/27/19 08/27/19 17:40 18:00 19:00 19:45 Pulse 104 101 Resp 24 23 B/P (MAP) 136/92 (107) 117/73 (88) Pulse Ox 98 98 98 99 O2 Delivery Ventilator Ventilator Ventilator Ventilator 08/27/19 08/27/19 08/27/19 08/27/19 20:00 20:00 21:00 22:00 Temp 99.2 99.2 Pulse 109 112 108 Resp 23 B/P (MAP) 120/66 (84) 141/78 (99) 150/60 (90) Pulse Ox 97 97 99 O2 Delivery Mechanical Ventilator Ventilator Ventilator Ventilator 08/27/19 08/27/19 08/27/19 08/27/19 22:40 22:40 23:00 23:10 Pulse 110 Resp 20 22 23 B/P (MAP) 144/70 (94) Pulse Ox 96 94 96 96 O2 Delivery Ventilator Ventilator Ventilator Ventilator 08/28/19 08/28/19 08/28/19 08/28/19 00:00 00:01 00:51 01:00 Temp 98.7 98.7 Pulse 111 113 Resp 24 25 B/P (MAP) 148/70 (96) 150/75 (100) Pulse Ox 96 94 99 O2 Delivery Mechanical Ventilator Ventilator Ventilator Ventilator 08/28/19 08/28/19 08/28/19 08/28/19 02:00 02:58 03:00 03:12 Pulse 118 107 Resp 23 25 21 B/P (MAP) 131/73 (92) 130/66 (87) Pulse Ox 97 96 94 O2 Delivery Ventilator Ventilator Ventilator Ventilator 08/28/19 08/28/19 08/28/19 08/28/19 03:28 04:00 04:00 05:00 Temp 99.2 99.2 Pulse 106 105 Resp 25 24 21 B/P (MAP) 133/67 (89) 117/70 (86) Pulse Ox 96 98 O2 Delivery Ventilator Mechanical Ventilator Ventilator Ventilator 08/28/19 08/28/19 08/28/19 08/28/19 05:34 06:00 08:11 08:18 Pulse 101 Resp 25 19 B/P (MAP) 142/85 (104) Pulse Ox 97 97 96 97 O2 Delivery Ventilator Ventilator Ventilator Ventilator 08/28/19 08/28/19 08/28/19 08/28/19 08:41 09:35 12:10 12:37 Resp Pulse Ox 98 97 98 98 O2 Delivery Ventilator Ventilator Ventilator Ventilator Intake and Output 08/27/19 08/27/19 08/28/19 14:59 22:59 06:59 Intake Total 1852 ml Output Total 1290 ml 1205 ml 1430 ml Balance -1290 ml -1205 ml 422 ml Hemodynamically unstable?: No Is patient in severe pain?: Yes Is NPO status required?: Yes NIELS MCGILL MD August 28, 2019 13:21
--- NOTE | 2019-08-28 13:26 | PDOC ---
SURGICAL PROGRESS NOTE Subjective Steven for Dr Servin awake, alert, writing questions on her pad with Saray asking about time frames ("like this", surgery) Vital Signs Vital Signs Date Time Temp Pulse Resp B/P (MAP) Pulse Ox O2 Delivery O2 Flow Rate FiO2 08/28/19 12:37 98 Ventilator 08/28/19 12:10 21 08/28/19 06:00 101 142/85 (104) 08/28/19 04:00 99.2 99.2 I&O Intake and Output 08/28/19 07:00 Intake Total 1852 ml Output Total 3925 ml Balance -2073 ml IV Total 1852 ml Output Urine Total 3525 ml Drainage Total 400 ml PATIENT HAS A ROSARIO: Yes (accurate I and O) General: Alert Abdomen: Soft Labs Laboratory Tests Test 08/26/19 18:13 08/27/19 00:18 08/27/19 06:00 08/27/19 13:34 Glucose (Fingerstick) 150 mg/dL (70-99) 159 mg/dL (70-99) 139 mg/dL (70-99) 182 mg/dL (70-99) Sodium Level 149 mmol/L (136-145) Potassium Level 3.9 mmol/L (3.5-5.1) Chloride Level 111 mmol/L (98-107) Carbon Dioxide Level 31 mmol/L (21-32) Anion Gap 7 (6-14) Blood Urea Nitrogen 33 mg/dL (7-20) Creatinine 0.8 mg/dL (0.6-1.0) Estimated GFR (Cockcroft-Gault) 76.2 Glucose Level 145 mg/dL (70-99) Calcium Level 8.7 mg/dL (8.5-10.1) Test 08/27/19 18:32 08/28/19 00:54 08/28/19 06:15 08/28/19 06:23 Glucose (Fingerstick) 139 mg/dL (70-99) 156 mg/dL (70-99) 131 mg/dL (70-99) White Blood Count 10.3 x10^3/uL (4.0-11.0) Red Blood Count 2.53 x10^6/uL (3.50-5.40) Hemoglobin 7.3 g/dL (12.0-15.5) Hematocrit 22.5 % (36.0-47.0) Mean Corpuscular Volume 89 fL (79-100) Mean Corpuscular Hemoglobin 29 pg (25-35) Mean Corpuscular Hemoglobin Concent 32 g/dL (31-37) Red Cell Distribution Width 17.8 % (11.5-14.5) Platelet Count 439 x10^3/uL (140-400) Sodium Level 148 mmol/L (136-145) Potassium Level 3.4 mmol/L (3.5-5.1) Chloride Level 109 mmol/L (98-107) Carbon Dioxide Level 31 mmol/L (21-32) Anion Gap 8 (6-14) Blood Urea Nitrogen 30 mg/dL (7-20) Creatinine 0.7 mg/dL (0.6-1.0) Estimated GFR (Cockcroft-Gault) 88.9 BUN/Creatinine Ratio 43 (6-20) Glucose Level 135 mg/dL (70-99) Calcium Level 8.2 mg/dL (8.5-10.1) Magnesium Level 1.6 mg/dL (1.8-2.4) Total Bilirubin 0.5 mg/dL (0.2-1.0) Aspartate Amino Transf (AST/SGOT) 40 U/L (15-37) Alanine Aminotransferase (ALT/SGPT) 41 U/L (14-59) Alkaline Phosphatase 123 U/L (46-116) Total Protein 5.4 g/dL (6.4-8.2) Albumin 1.6 g/dL (3.4-5.0) Albumin/Globulin Ratio 0.4 (1.0-1.7) Test 08/28/19 12:40 Glucose (Fingerstick) 149 mg/dL (70-99) Laboratory Tests Test 08/27/19 13:34 08/27/19 18:32 08/28/19 00:54 08/28/19 06:15 Glucose (Fingerstick) 182 mg/dL (70-99) 139 mg/dL (70-99) 156 mg/dL (70-99) White Blood Count 10.3 x10^3/uL (4.0-11.0) Red Blood Count 2.53 x10^6/uL (3.50-5.40) Hemoglobin 7.3 g/dL (12.0-15.5) Hematocrit 22.5 % (36.0-47.0) Mean Corpuscular Volume 89 fL (79-100) Mean Corpuscular Hemoglobin 29 pg (25-35) Mean Corpuscular Hemoglobin Concent 32 g/dL (31-37) Red Cell Distribution Width 17.8 % (11.5-14.5) Platelet Count 439 x10^3/uL (140-400) Sodium Level 148 mmol/L (136-145) Potassium Level 3.4 mmol/L (3.5-5.1) Chloride Level 109 mmol/L (98-107) Carbon Dioxide Level 31 mmol/L (21-32) Anion Gap 8 (6-14) Blood Urea Nitrogen 30 mg/dL (7-20) Creatinine 0.7 mg/dL (0.6-1.0) Estimated GFR (Cockcroft-Gault) 88.9 BUN/Creatinine Ratio 43 (6-20) Glucose Level 135 mg/dL (70-99) Calcium Level 8.2 mg/dL (8.5-10.1) Magnesium Level 1.6 mg/dL (1.8-2.4) Total Bilirubin 0.5 mg/dL (0.2-1.0) Aspartate Amino Transf (AST/SGOT) 40 U/L (15-37) Alanine Aminotransferase (ALT/SGPT) 41 U/L (14-59) Alkaline Phosphatase 123 U/L (46-116) Total Protein 5.4 g/dL (6.4-8.2) Albumin 1.6 g/dL (3.4-5.0) Albumin/Globulin Ratio 0.4 (1.0-1.7) Test 08/28/19 06:23 08/28/19 12:40 Glucose (Fingerstick) 131 mg/dL (70-99) 149 mg/dL (70-99) Problem List Problems Medical Problems: (1) Acute pancreatitis Status: Acute (2) Cholelithiasis Status: Acute Assessment/Plan severe pancreatitis continue supportive care MARV WYNNE MD August 28, 2019 13:26
[2019-08-28] MEDS: IV NORMAL SALINE 1000ML BAG 1,000 ML IV SCH (13:30)
[2019-08-28 15:44] LABS: ALBUMIN 1.6 g/dL (3.4-5.0); ALBUMIN/GLOBULIN RATIO 0.4 (1.0-1.7); CALCIUM 8.2 mg/dL (8.5-10.1); CREATININE 0.9 mg/dL (0.6-1.0); GFR 66.5; POTASSIUM 3.4 mmol/L (3.5-5.1); TOTAL BILIRUBIN 0.4 mg/dL (0.2-1.0); TOTAL PROTEIN 5.5 g/dL (6.4-8.2)
[2019-08-28] MEDS: DULoxetine HCL 30 MG CAPSULE.DR PO SCH (17:50)
[2019-08-28] MEDS ORDERED: DEXTROSE 70% IV SCH ×8 (22:00)
[2019-08-28] MEDS ORDERED: [UNRECOGNIZED DRUG - OTHER] IV SCH ×8 (22:00)
[2019-08-28] MEDS ORDERED: AMINO ACID IV SCH ×8 (22:00)
[2019-08-28] MEDS ORDERED: TOTAL PARENTERAL NUTRITION IV SCH ×8 (22:00)
[2019-08-29] VITALS (23 sets, daily range): BP systolic 114–165; BP diastolic 65–96
[2019-08-29] MEDS: INSULIN LISPRO 300 UNITS/3 ML VIAL. SQ SCH ×4 (00:30→22:19)
[2019-08-29] MEDS: DEXMEDETOMIDINE 400 MCG in IV NORMAL SALINE 100ML 96 ML IV PRN ×3 (04:40→17:09)
[2019-08-29] MEDS: METOCLOPRAMIDE HCL 10 MG/2 ML VIAL. IVP PRN ×2 (04:40→11:29)
[2019-08-29 05:34] LABS: CALCIUM 8.4 mg/dL (8.5-10.1); CREATININE 0.7 mg/dL (0.6-1.0); GFR 88.9; PHOSPHORUS 3.8 mg/dL (2.6-4.7); POTASSIUM 3.8 mmol/L (3.5-5.1)
[2019-08-29] MEDS: MEROPENEM 1 GM in IV NORMAL SALINE 100ML 100 ML IV SCH ×3 (06:05→22:16)
[2019-08-29] MEDS: HYDROmorphone 2 MG/ML VIAL IVP PRN ×3 (06:19→18:20)
--- NOTE | 2019-08-29 07:44 | PDOC ---
Infectious Disease Note Subjective Subjective feeling better says Remains on vent/trach FiO2 30% PEEP 5 On TPN ROS ROS no n/v/d/pain Vital Sign Vital Signs Vital Signs Date Time Temp Pulse Resp B/P (MAP) Pulse Ox O2 Delivery O2 Flow Rate FiO2 08/29/19 07:01 98 Ventilator 08/29/19 06:49 15 08/29/19 06:00 101 134/81 (98) 08/29/19 04:00 98.4 98.4 Physical Exam PHYSICAL EXAM GENERAL: Propped up in bed, appears weak, tired HEENT: oral cavity dry, NGT NECK: Trach/vent LUNGS: Improved aeration HEART: S1, S2, regular ABDOMEN: Distended, hypoactive BS, tender, + drains x 3 : Lind (08/01) EXTREMITIES: Generalized edema, no cyanosis, SCDs bilaterally SKIN: Warm and dry. No generalized rash. BREAST SPLITTER: Nodded some to couple questions PICC(08/17) clean Labs Lab Laboratory Tests Test 08/28/19 12:40 08/28/19 15:20 08/28/19 17:44 08/29/19 00:13 Glucose (Fingerstick) 149 mg/dL (70-99) 142 mg/dL (70-99) 162 mg/dL (70-99) Sodium Level 146 mmol/L (136-145) Potassium Level 3.4 mmol/L (3.5-5.1) Chloride Level 106 mmol/L (98-107) Carbon Dioxide Level 33 mmol/L (21-32) Anion Gap 7 (6-14) Blood Urea Nitrogen 28 mg/dL (7-20) Creatinine 0.9 mg/dL (0.6-1.0) Estimated GFR (Cockcroft-Gault) 66.5 BUN/Creatinine Ratio 31 (6-20) Glucose Level 166 mg/dL (70-99) Calcium Level 8.2 mg/dL (8.5-10.1) Total Bilirubin 0.4 mg/dL (0.2-1.0) Aspartate Amino Transf (AST/SGOT) 38 U/L (15-37) Alanine Aminotransferase (ALT/SGPT) 39 U/L (14-59) Alkaline Phosphatase 95 U/L (46-116) Total Protein 5.5 g/dL (6.4-8.2) Albumin 1.6 g/dL (3.4-5.0) Albumin/Globulin Ratio 0.4 (1.0-1.7) Test 08/29/19 05:00 08/29/19 05:06 Sodium Level 145 mmol/L (136-145) Potassium Level 3.8 mmol/L (3.5-5.1) Chloride Level 106 mmol/L (98-107) Carbon Dioxide Level 33 mmol/L (21-32) Anion Gap 6 (6-14) Blood Urea Nitrogen 29 mg/dL (7-20) Creatinine 0.7 mg/dL (0.6-1.0) Estimated GFR (Cockcroft-Gault) 88.9 Glucose Level 125 mg/dL (70-99) Calcium Level 8.4 mg/dL (8.5-10.1) Phosphorus Level 3.8 mg/dL (2.6-4.7) Magnesium Level 2.0 mg/dL (1.8-2.4) Glucose (Fingerstick) 126 mg/dL (70-99) Micro Objective Assessment Fever - better currently - intermittent could be from underlying pancreatitis blood cults 08/21 - neg so far ? Ileus with vomiting Abd distention - U/S and CT reviewed s/p 0.4 L of opaque, debris-containing ascites was removed 08/23 Acute pancreatitis with persistent necrosis - 08/14 status post KAYLIN drain placement + C paropsilosis. s/p additional drains 08/25 Anemia - S/p PRBCs Cholelithiasis with thickening of the gallbladder wall. Leucocytosis improving JUANA, hyperkalemia, Metabolic acidosis off dialysis Acute hypoxic resp failure ,bilateral pleural effusion and atelectasis hypocalcemia Prediabetes HTN s/p trach Plan Plan of Care Continue Dapto 08/21, merrem 07/26 -try to wean soon Continue micafungin f/u cultures Maintain aspiration precaution Supportive care KIMMY JONES MD August 29, 2019 07:44
--- NOTE | 2019-08-29 09:00 | PDOC ---
[facility] PROGRESS NOTE Chief Complaint Chief Complaint Acute hypoxic Respiratory failure requiring mechanical ventilation (on vent since 07/10) Tracheostomy bilateral pleural effusions/pulm edema Sepsis Severe Acute gallstone pancreatitis (not a surgical candidate at this time) with necrosis Acute kidney failure now requiring dialysis Salpingitis Gallstones (Calculus of gallbladder with acute cholecystitis without obstruction) HTN Leukocytosis Hypoxia Uterine fibroid Intractable pain Intractable nausea Covid 19 negative. Acute on chronic anemia EEG: No seizure activityFever - better currently - intermittent could be from underlying pancreatitis blood cults 08/21 - neg so far ? Ileus with vomiting Abd distention - U/S and CT reviewed s/p 0.4 L of opaque, debris-containing ascites was removed 08/23 Acute pancreatitis with persistent necrosis - 08/14 status post KAYLIN drain placement + C paropsilosis. s/p additional drains 08/25 Anemia - S/p PRBCs Cholelithiasis with thickening of the gallbladder wall. Leucocytosis improving JUANA, hyperkalemia, Metabolic acidosis off dialysis Acute hypoxic resp failure ,bilateral pleural effusion and atelectasis hypocalcemia Prediabetes HTN s/p trach ESRD on HD Hyperglycemia History of Present Illness History of Present Illness 08/29/2019 Patient seen and examined She remains on the vent but spontaneous respirations with 20 of pressure support and 30% FiO2 He still has NG to suction Appears extremely ill and weak and confused Has IV TPN Precedex antibiotics Lind is to bedside drainage She has SCDs and ProCare boots She is on IV meropenem and daptomycin and micafungin Chart reviewed Discussed with RN Patient is still critically ill Ms Diaz is a 48yo F w/ PMHx HTN, prediabetes who presented to the emergency room with complaints of abdominal pain on 07/04/2019. Found with Lipase 98235, AST 401, ALT 249, Bilirubin 1.4. CT abdomen confirms pancreatic inflammation, peripancreatic fluid and inflammatory changes around the pancreas consistent with pancreatitis. Cholelithiasis and 1.4cm uterine fibroid as well as possible left salpingitis. Admitted for further care GI, General surgery, ID, Pulm consulted. 07/04: PICC placed per IR. Renal US negative. Started on levophed. Repeat CT abdomen w/ necrosis; 07/05: Dialysis catheter per nephrology; 07/06: On BiPAP; 07/07: BiPAP, dialysis; 07/08: Overnight Tmax 101.7 , still on BiPAP FiO2 40%, still on low dose Levophed gtt, TPN initiated. On dialysis 07/24: Tracheostomy; 07/30: S/p tracheostomy on vent spontaneous respirations with 5 of pressure support 35% FiO2, rectal tube and a Lind, off pressors; 08/01:Still on vent via trach. Removed PICC and CVC [facility] and replaced. CT chest/abd/pelvis with bilateral pleural effusion and ascites. 08/02: Renal function stable. Still on vent. More interactive today. Miming wish for food. Plan discussed for thoracentesis/paracentesis with daughters today. They were under impression patient was doing worse due to a miscommunication which has been clarified over the phone. 4.3L removed. 08/04: Febrile overnight 101.8F. More interactive, still on vent. Asking for ice by miming; 08/05: Afebrile overnight. TMax last 24 hours 100.6F. Hb 7.1. Interactive when awake. 08/09: Transfusion 1u PRBC (6U total since admit) 08/10-08/13: TPN and precedex, vent. 08/14: Tmax 101F overnight. Hb 8.2. HD cath out since 08/11. Alert. On vent SIMV 35% FiO2. Surgery: ex-lap, no ronel or pancreatic necrosectomy 2/2 profound inflammation. 08/15: Seen POD #1. Afebrile overnight. BUN 62. CBC WNL today.Remains on vent via trach, TPN. Able to point today and indicate she wishes her daughters and Jamaal to be involved in her care. 08/16: Hb 7.4, Na 151. Remains on vent via trach, TPN. off HD for now. Not tolerating trach shield well. 08/17: Negative US for UE DVT. More relaxed today. Has some increase in UOP. Tolerating vent well. She is requesting to eat and drink via writing. T max 100F 24 hours ago, but 101F at 1200. Right PICC placed. Speaking valve for half the day in whisper 08/18: Na 153 today. Good UOP. Tmax 101F at 1200 on 08/17. She becomes a bit anxious and did not sleep much last night, wishes to try to sleep this morning 08/19: Able to speak well with speaking valve today. Na 153, K2.9, Mg 1.8, Cr 1. 100.4F axillary temp overnight. Asking for food. 08/20: Afebrile overnight. ABG with pH 7.27/75/123. Hb 7.1. Na 153. SCIENTIFIC SOFTWARE ENGINEER settings decreased 08/21: No acute events reported overnight, case discussed with nursing staff patient in no acute distress no complaints during my visit 08/22: Patient responding to verbal stimuli. She is saturating well and not requiring ventilation support, no acute events reported overnight seems to be slowly improving 08/23: Patient requiring transfusion of packed red blood cells due to anemia, no evidence of acute bleeding, appreciate GI outbound sales consultant recommendations 08/24: Patient required ventilatory support given that she desaturated, she is lying in bed in mild distress, case discussed with nursing staff, no evidence of bleeding, h an h noted. 08/25: Underwent IR procedure as follows BRIEF OPERATIVE NOTE Pre-Op Diagnosis Pancreatitis with pseudocysts, suspected infection Post-Op Diagnosis same Procedure Performed CT abdominal Drains x 3 Surgeon Tesfaye Anesthesia Type: Conscious Sedation Findings 3 abdominal drains, 14F, with turbid pancreatic fluid and necrotic debris in each. Complications No immediate 08/26: Patient today somewhat restless and having bilious secretions from ET tube, imaging studies ordered, discussed with outbound sales consultant. Pretty poor prognosis, hopefully is not a fistula, poor surgical candidate. 08/27: Imaging with no acute events, she seems more stable today compared to yesterday. Encouraged as much activity as possible patient at high risk for severe depression. Vitals/I&O Vitals/I&O: Vital Signs Date Time Temp Pulse Resp B/P (MAP) Pulse Ox O2 Delivery O2 Flow Rate FiO2 08/29/19 07:01 98 Ventilator 08/29/19 06:49 15 08/29/19 06:00 101 134/81 (98) 08/29/19 04:00 98.4 98.4 I & O 08/28/19 08/28/19 08/29/19 15:00 23:00 07:00 Intake Total 3219 ml Output Total 2875 ml 1120 ml 860 ml Balance -2875 ml -1120 ml 2359 ml Physical Exam Physical Exam: GENERAL: Propped up in bed, appears weak, tired HEENT: oral cavity dry, NGT NECK: Trach/vent LUNGS: Improved aeration HEART: S1, S2, regular ABDOMEN: Distended, hypoactive BS, tender, + drains x 3 : Lind (08/01) EXTREMITIES: Generalized edema, no cyanosis, SCDs bilaterally SKIN: Warm and dry. No generalized rash. PIERCER OPERATOR: Nodded some to couple questions PICC(08/17) clean General: Alert Heart: Regular rate, Normal S1, Normal S2, No murmurs, Gallops Lungs: Crackles Abdomen: Soft Extremities: No clubbing, No cyanosis, No edema, Normal pulses, No tenderness/swelling Skin: Other (mottling noted to extremities ) Labs Labs: Laboratory Tests Test 08/28/19 12:40 08/28/19 15:20 08/28/19 17:44 08/29/19 00:13 Glucose (Fingerstick) 149 mg/dL (70-99) 142 mg/dL (70-99) 162 mg/dL (70-99) Sodium Level 146 mmol/L (136-145) Potassium Level 3.4 mmol/L (3.5-5.1) Chloride Level 106 mmol/L (98-107) Carbon Dioxide Level 33 mmol/L (21-32) Anion Gap 7 (6-14) Blood Urea Nitrogen 28 mg/dL (7-20) Creatinine 0.9 mg/dL (0.6-1.0) Estimated GFR (Cockcroft-Gault) 66.5 BUN/Creatinine Ratio 31 (6-20) Glucose Level 166 mg/dL (70-99) Calcium Level 8.2 mg/dL (8.5-10.1) Total Bilirubin 0.4 mg/dL (0.2-1.0) Aspartate Amino Transf (AST/SGOT) 38 U/L (15-37) Alanine Aminotransferase (ALT/SGPT) 39 U/L (14-59) Alkaline Phosphatase 95 U/L (46-116) Total Protein 5.5 g/dL (6.4-8.2) Albumin 1.6 g/dL (3.4-5.0) Albumin/Globulin Ratio 0.4 (1.0-1.7) Test 08/29/19 05:00 08/29/19 05:06 Sodium Level 145 mmol/L (136-145) Potassium Level 3.8 mmol/L (3.5-5.1) Chloride Level 106 mmol/L (98-107) Carbon Dioxide Level 33 mmol/L (21-32) Anion Gap 6 (6-14) Blood Urea Nitrogen 29 mg/dL (7-20) Creatinine 0.7 mg/dL (0.6-1.0) Estimated GFR (Cockcroft-Gault) 88.9 Glucose Level 125 mg/dL (70-99) Calcium Level 8.4 mg/dL (8.5-10.1) Phosphorus Level 3.8 mg/dL (2.6-4.7) Magnesium Level 2.0 mg/dL (1.8-2.4) Glucose (Fingerstick) 126 mg/dL (70-99) Assessment and Plan Assessmemt and Plan Problems Medical Problems: (1) Acute pancreatitis Status: Acute (2) Cholelithiasis Status: Acute Acute hypoxic Respiratory failure requiring mechanical ventilation (on vent since 07/10) Tracheostomy bilateral pleural effusions/pulm edema Sepsis Severe Acute gallstone pancreatitis (not a surgical candidate at this time) with necrosis Acute kidney failure now requiring dialysis Salpingitis Gallstones (Calculus of gallbladder with acute cholecystitis without obstruction) HTN Leukocytosis Hypoxia Uterine fibroid Intractable pain Intractable nausea Covid 19 negative. Acute on chronic anemia EEG: No seizure activityFever - better currently - intermittent could be from underlying pancreatitis blood cults 08/21 - neg so far ? Ileus with vomiting Abd distention - U/S and CT reviewed s/p 0.4 L of opaque, debris-containing ascites was removed 08/23 Acute pancreatitis with persistent necrosis - 08/14 status post KAYLIN drain placement + C paropsilosis. s/p additional drains Anemia - S/p PRBCs Cholelithiasis with thickening of the gallbladder wall. Leucocytosis improving JUANA, hyperkalemia, Metabolic acidosis off dialysis Acute hypoxic resp failure ,bilateral pleural effusion and atelectasis hypocalcemia Prediabetes HTN s/p trach ESRD on HD Hyperglycemia Plan ICU monitoring Wound care NG suctioning Continue IV antibiotics and micafungin Sedation with Precedex TPN protocol Continue Lind to bedside drainage Tracheostomy care Continue vent weaning and hope to progress towards decannulation at some point but she is still extremely ill Trend labs Appreciate subspecialist input She is critically ill Total time 33-minute Comment Review of Relevant I have reviewed the following items kolby (where applicable) has been applied. Medications: Current Medications Medications (Trade) Dose Ordered Sig/Yvon Route PRN Reason Start Time Stop Time Status Last Admin Dose Admin Magnesium Sulfate 50 ml @ 25 mls/hr 1X ONCE IV 08/28/19 09:00 08/28/19 10:59 DC 08/28/19 10:44 Potassium Chloride/Water 100 ml @ 100 mls/hr 1X ONCE IV 08/28/19 09:00 08/28/19 09:59 DC 08/28/19 09:37 Duloxetine HCl (Cymbalta) 30 mg DAILY PO 08/28/19 14:00 08/28/19 17:50 Potassium Chloride 80 meq/ Magnesium Sulfate 20 meq/ Multivitamins 10 ml/Chromium/ Copper/Manganese/ Seleni/Zn 0.5 ml/ Insulin Human Regular 15 unit/ Total Parenteral Nutrition/Amino Acids/Dextrose/ Fat Emulsion Intravenous 1,920 ml @ 80 mls/hr TPN CONT IV 08/28/19 22:00 08/29/19 21:59 08/28/19 21:42 Hemodynamically unstable?: No Is patient in severe pain?: Yes Is NPO status required?: Yes BEBO KIRBY III DO August 29, 2019 09:00
[2019-08-29] MEDS: PANTOPRAZOLE IV PUSH 40 MG VIAL. IVP SCH (09:47)
[2019-08-29] MEDS: BUMETANIDE 1 MG/4 ML VIAL. IV SCH (09:48)
[2019-08-29] MEDS: DULoxetine HCL 30 MG CAPSULE.DR PO SCH (09:48)
--- NOTE | 2019-08-29 11:05 | PDOC ---
SUBJECTIVE ROS stable OBJECTIVE Vital Signs Vital Signs Date Time Temp Pulse Resp B/P (MAP) Pulse Ox O2 Delivery O2 Flow Rate FiO2 08/29/19 07:01 98 Ventilator 08/29/19 06:49 15 08/29/19 06:00 101 134/81 (98) 08/29/19 04:00 98.4 98.4 I & 0 Intake and Output 08/29/19 07:00 Intake Total 3219 ml Output Total 4855 ml Balance -1636 ml IV Total 3219 ml Output Urine Total 4495 ml Drainage Total 360 ml PHYSICAL EXAM Physical Exam GENERAL: Propped up in bed HEENT: OM moist NECK: Trach/vent LUNGS: Improved aeration HEART: S1, S2, ABDOMEN: Distended, hypoactive BS, tender, + drains x 3 : Lind + EXTREMITIES: Generalized edema, SKIN No generalized rash. 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 Moderate pleural effusions, may be slightly improved. Infiltrate/atelectasis in both lung bases. Ascites - post paracentesis in the past s/p paracentesis 08/23 Acute hypoxic resp failure ,bilateral pleural effusion Trach in place, HTN COVID-19 neg, 07/13 Will sign off COMMENT/RELEVANT DATA Meds Current Medications Medications (Trade) Dose Ordered Sig/Yvon Start Time Stop Time Status Last Admin Dose Admin Acetaminophen (Tylenol Supp) 650 mg PRN Q6HRS PRN 07/12/19 10:30 08/23/19 09:12 650 MG Acetaminophen (Tylenol) 650 mg PRN Q6HRS PRN 07/09/19 03:36 08/04/19 19:56 650 MG Albumin Human 200 ml @ 200 mls/hr 1X PRN PRN 08/09/19 08:00 08/09/19 13:59 DC 08/09/19 08:40 200 MLS/HR Albuterol Sulfate (Ventolin Neb Soln) 2.5 mg 1X ONCE 07/05/19 22:30 07/05/19 22:31 DC 07/06/19 00:56 2.5 MG Alteplase, Recombinant (Cathflo For Central Catheter Clearance) 1 mg 1X ONCE 08/12/19 10:45 08/12/19 10:46 DC 08/12/19 11:44 1 MG Amino Acids/ Glycerin/ Electrolytes 1,000 ml @ 75 mls/hr [id number] 08/08/19 21:15 UNV Artificial Tears (Artificial Tears) 1 drop PRN Q15MIN PRN 08/17/19 05:30 08/26/19 22:00 1 DROP Atenolol (Tenormin) 100 mg DAILY 07/05/19 09:00 07/04/19 20:08 DC Atropine Sulfate (ATROPINE 0.5mg SYRINGE) 0.5 mg PRN Q5MIN PRN 07/21/19 08:15 Benzocaine (Hurricaine One) 1 spray 1X ONCE 07/08/19 14:30 07/08/19 14:31 DC 07/08/19 16:38 1 SPRAY Bisacodyl (Dulcolax Supp) 10 mg STK-MED ONCE 08/15/19 10:59 08/15/19 10:59 DC Bumetanide (Bumex) 2 mg DAILY 08/26/19 10:00 08/29/19 09:48 2 MG Bupivacaine HCl/ Epinephrine Bitart (Sensorcain-Epi 0.5%-[id number] Mpf) 30 ml STK-MED ONCE 08/15/19 10:58 08/15/19 10:58 DC 08/15/19 12:01 7 ML Calcium Carbonate/ Glycine (Tums) 500 mg PRN [id number] PRN 07/06/19 17:45 Calcium Chloride 1000 mg/Sodium Chloride 110 ml @ 220 mls/hr 1X ONCE 07/05/19 22:30 07/05/19 22:59 DC 07/05/19 22:11 220 MLS/HR Calcium Chloride 3000 mg/Sodium Chloride 1,030 ml @ 50 mls/hr [id number] 07/07/19 08:00 07/09/19 15:23 DC 07/09/19 02:17 50 MLS/HR Calcium Gluconate (Calcium Gluconate) 2,000 mg 1X ONCE 07/07/19 02:15 07/07/19 02:16 DC 07/07/19 02:19 2,000 MG Calcium Gluconate 1000 mg/Sodium Chloride 110 ml @ 220 mls/hr 1X ONCE 07/06/19 03:30 07/06/19 03:59 DC 07/06/19 03:21 220 MLS/HR Calcium Gluconate 2000 mg/Sodium Chloride 120 ml @ 220 mls/hr 1X ONCE 07/06/19 07:30 07/06/19 08:02 DC 07/06/19 09:05 220 MLS/HR Cefepime HCl (Maxipime) 2 gm Q12HR 07/13/19 09:00 07/27/19 09:58 DC 07/26/19 20:56 2 GM Cellulose (Surgicel Fibrillar 1x2) 1 each STK-MED ONCE 07/25/19 11:00 07/25/19 11:01 DC Cellulose (Surgicel Hemostat 2x14) 1 each STK-MED ONCE 08/15/19 10:58 08/15/19 10:59 DC Cellulose (Surgicel Hemostat 4x8) 1 each STK-MED ONCE 08/15/19 10:58 08/15/19 10:59 DC Cyclobenzaprine HCl (Flexeril) 10 mg PRN Q6HRS PRN 08/18/19 10:45 Daptomycin 430 mg/ Sodium Chloride 50 ml @ 100 mls/hr Q24H 08/13/19 13:00 08/18/19 20:58 DC 08/18/19 13:00 100 MLS/HR Daptomycin 485 mg/ Sodium Chloride 50 ml @ 100 mls/hr Q24H 08/22/19 11:00 08/28/19 12:09 100 MLS/HR Daptomycin 500 mg/ Sodium Chloride 50 ml @ 100 mls/hr Q48H 07/13/19 08:30 07/29/19 10:07 DC 07/29/19 09:57 100 MLS/HR Dexamethasone Sodium Phosphate (Decadron) 4 mg STK-MED ONCE 08/15/19 10:56 08/15/19 10:57 DC Dexmedetomidine HCl 400 mcg/ Sodium Chloride 100 ml @ 0 mls/hr CONT PRN 07/21/19 08:15 08/29/19 04:40 16.1 MLS/HR Dextrose (Dextrose 50%-Water Syringe) 12.5 gm PRN Q15MIN PRN 07/04/19 09:30 Digoxin (Lanoxin) 125 mcg 1X ONCE 07/07/19 18:00 07/07/19 18:01 DC 07/07/19 17:10 125 MCG Diphenhydramine HCl (Benadryl) 25 mg 1X PRN PRN 08/12/19 15:45 08/13/19 15:44 DC Duloxetine HCl (Cymbalta) 30 mg DAILY 08/28/19 14:00 08/29/19 09:48 30 MG Enoxaparin Sodium (Lovenox 100mg Syringe) 100 mg Q12HR 08/09/19 21:00 UNV Etomidate (Amidate) 8 mg 1X ONCE 07/11/19 08:30 07/11/19 08:31 DC 07/11/19 08:33 8 MG Fentanyl Citrate (Fentanyl 2ml Vial) 100 mcg STK-MED ONCE 08/15/19 10:56 08/15/19 10:57 DC Fentanyl Citrate (Fentanyl 5ml Vial) 250 mcg 1X ONCE 08/26/19 09:15 08/26/19 09:16 DC 08/26/19 09:30 50 MCG Furosemide (Lasix) 40 mg 1X ONCE 08/01/19 14:30 08/01/19 14:31 DC 08/01/19 14:39 40 MG Haloperidol Lactate (Haldol Inj) 3 mg 1X ONCE 08/22/19 14:30 08/22/19 14:31 DC 08/22/19 14:37 3 MG Heparin Sodium (Porcine) (Hep Lock Adult) 500 unit STK-MED ONCE 07/26/19 09:29 07/26/19 09:30 DC Heparin Sodium (Porcine) (Heparin Sodium) 5,000 unit Q12HR 08/15/19 21:00 08/25/19 09:59 DC 08/24/19 20:57 5,000 UNIT Heparin Sodium (Porcine) 1000 unit/Sodium Chloride 1,001 ml @ 1,001 mls/hr 1X ONCE 08/15/19 12:00 08/15/19 12:59 DC Hydromorphone HCl (Dilaudid Standard CRYSTAL SYRUP MAKER) 12 mg STK-MED ONCE 08/18/19 13:47 08/19/19 11:03 DC Hydromorphone HCl (Dilaudid) 1 mg PRN Q4HRS PRN 08/22/19 19:00 08/29/19 06:19 1 MG Info (CONTRAST GIVEN -- Rx MONITORING) 1 each PRN DAILY PRN 07/18/19 11:45 07/20/19 11:44 DC Info (Icu Electrolyte Protocol) 1 ea CONT PRN PRN 07/17/19 13:15 Info (PHARMACY MONITORING -- do not chart) 1 each PRN DAILY PRN 08/12/19 15:45 Info (Tpn Per Pharmacy) 1 each PRN DAILY PRN 07/06/19 12:30 UNV Insulin Human Lispro (HumaLOG) 0-9 UNITS Q6HRS 07/04/19 09:30 08/29/19 00:30 4 UNITS Insulin Human Regular (HumuLIN R VIAL) 5 unit 1X ONCE 07/05/19 22:30 07/05/19 22:31 DC 07/05/19 22:14 5 UNIT Iohexol (Omnipaque 240 Mg/ml) 30 ml 1X ONCE 07/18/19 11:30 07/18/19 11:33 DC 07/18/19 11:30 30 ML Iohexol (Omnipaque 300 Mg/ml) 50 ml STK-MED ONCE 08/15/19 10:58 08/15/19 10:59 DC Iohexol (Omnipaque 350 Mg/ml) 90 ml 1X ONCE 07/04/19 03:30 07/04/19 03:31 DC 07/04/19 03:25 90 ML Ketorolac Tromethamine (Toradol 30mg Vial) 30 mg 1X ONCE 07/04/19 03:00 07/04/19 03:01 DC 07/04/19 02:54 30 MG Lidocaine HCl (Buffered Lidocaine 1%) 3 ml 1X ONCE 08/26/19 09:15 08/26/19 09:16 DC 08/26/19 09:30 16 ML Lidocaine HCl (Glydo (Lidocaine) Jelly) 1 ramu 1X ONCE 07/08/19 14:30 07/08/19 14:31 DC 07/08/19 16:38 1 RAMU Lidocaine HCl (Xylocaine-Mpf 1% 2ml Vial) 2 ml PRN 1X PRN 08/15/19 07:00 08/16/19 06:59 DC Linezolid/Dextrose 300 ml @ 300 mls/hr Q12HR 07/29/19 11:00 08/09/19 08:10 DC 08/08/19 20:40 300 MLS/HR Lorazepam (Ativan Inj) 1 mg PRN Q4HRS PRN 07/07/19 09:00 08/05/19 09:19 DC 08/05/19 03:51 1 MG Magnesium Sulfate 50 ml @ 25 mls/hr 1X ONCE 08/28/19 09:00 08/28/19 10:59 DC 08/28/19 10:44 25 MLS/HR Meropenem 1 gm/ Sodium Chloride 100 ml @ 200 mls/hr Q8HRS 08/16/19 14:00 08/29/19 06:05 200 MLS/HR Meropenem 500 mg/ Sodium Chloride 50 ml @ 100 mls/hr Q12H 07/27/19 10:00 08/16/19 12:37 DC 08/16/19 10:45 100 MLS/HR Metoclopramide HCl (Reglan Vial) 10 mg PRN Q3HRS PRN 08/27/19 16:45 08/29/19 04:40 10 MG Metoprolol Tartrate (Lopressor Vial) 5 mg Q6HRS 07/05/19 10:15 07/16/19 08:48 DC 07/14/19 00:12 5 MG Metronidazole 100 ml @ 100 mls/hr Q8HRS 08/02/19 10:00 08/09/19 08:10 DC 08/09/19 06:04 100 MLS/HR Micafungin Sodium 100 mg/Dextrose 100 ml @ 100 mls/hr Q24H 08/22/19 11:00 08/28/19 12:14 100 MLS/HR Midazolam HCl (Versed) 5 mg 1X ONCE 08/26/19 09:15 08/26/19 09:16 DC 08/26/19 09:30 1 MG Midazolam HCl 100 mg/Sodium Chloride 100 ml @ 7 mls/hr CONT PRN 07/16/19 16:00 07/27/19 15:35 7 MLS/HR Midazolam HCl 50 mg/Sodium Chloride 50 ml @ 0 mls/hr CONT PRN 07/11/19 08:15 07/16/19 15:59 DC 07/14/19 22:39 7 MLS/HR Morphine Sulfate (Morphine Sulfate) 2 mg PRN Q2HR PRN 07/04/19 05:00 07/05/19 14:15 DC 07/05/19 12:26 2 MG Multi-Ingred Cream/Lotion/Oil/ Oint (Artificial Tears Eye Ointment) 1 ramu PRN Q1HR PRN 07/13/19 17:30 08/01/19 08:19 1 RAMU Naloxone HCl (Narcan) 0.4 mg PRN Q2MIN PRN 08/15/19 14:30 UNV Norepinephrine Bitartrate 8 mg/ Dextrose 258 ml @ 17.299 mls/ hr CONT PRN 07/05/19 15:30 08/05/19 09:19 DC 08/02/19 12:48 20.9 MLS/HR Ondansetron HCl (Zofran) 4 mg STK-MED ONCE 08/15/19 10:56 08/15/19 10:57 DC Pantoprazole Sodium (PROTONIX VIAL for IV PUSH) 40 mg DAILYAC 07/04/19 11:30 08/29/19 09:47 40 MG Phenylephrine HCl (PHENYLEPHRINE in 0.9% NACL PF) 1 mg STK-MED ONCE 08/15/19 12:34 08/15/19 12:34 DC Piperacillin Sod/ Tazobactam Sod 4.5 gm/Sodium Chloride 100 ml @ 200 mls/hr 1X ONCE 07/04/19 06:00 07/04/19 06:29 DC 07/04/19 05:44 200 MLS/HR Potassium Chloride 15 meq/ Bicarbonate Dialysis Soln w/ out KCl 5,007.5 ml @ 1,000 mls/ hr Q5H1M 07/17/19 20:00 07/21/19 13:08 DC 07/20/19 18:14 1,000 MLS/HR Potassium Chloride 20 meq/ Bicarbonate Dialysis Soln w/ out KCl 5,010 ml @ 1,000 mls/hr Q5H1M 07/13/19 16:00 07/17/19 19:59 DC 07/17/19 14:54 1,000 MLS/HR Potassium Chloride 75 meq/ Magnesium Sulfate 15 meq/ Multivitamins 10 ml/Chromium/ Copper/Manganese/ Seleni/Zn 0.5 ml/ Insulin Human Regular 15 unit/ Total Parenteral Nutrition/Amino Acids/Dextrose/ Fat Emulsion Intravenous 1,920 ml @ 80 mls/hr TPN CONT 08/27/19 22:00 08/28/19 21:59 DC 08/27/19 22:41 80 MLS/HR Potassium Chloride 75 meq/ Magnesium Sulfate 15 meq/Calcium Gluconate 8 meq/ Multivitamins 10 ml/Chromium/ Copper/Manganese/ Seleni/Zn 0.5 ml/ Insulin Human Regular 15 unit/ Total Parenteral Nutrition/Amino Acids/Dextrose/ Fat Emulsion Intravenous 1,920 ml @ 80 mls/hr TPN CONT 08/25/19 22:00 08/26/19 21:59 DC 08/25/19 22:28 80 MLS/HR Potassium Chloride 75 meq/ Magnesium Sulfate 15 meq/Calcium Gluconate 8 meq/ Multivitamins 10 ml/Chromium/ Copper/Manganese/ Seleni/Zn 0.5 ml/ Insulin Human Regular 20 unit/ Total Parenteral Nutrition/Amino Acids/Dextrose/ Fat Emulsion Intravenous 1,920 ml @ 80 mls/hr TPN CONT 08/24/19 22:00 08/25/19 21:59 DC 08/24/19 22:00 80 MLS/HR Potassium Chloride 75 meq/ Magnesium Sulfate 15 meq/Calcium Gluconate 8 meq/ Multivitamins 10 ml/Chromium/ Copper/Manganese/ Seleni/Zn 0.5 ml/ Insulin Human Regular 25 unit/ Total Parenteral Nutrition/Amino Acids/Dextrose/ Fat Emulsion Intravenous 1,920 ml @ 80 mls/hr TPN CONT 08/22/19 22:00 08/23/19 21:59 DC 08/22/19 23:08 80 MLS/HR Potassium Chloride 75 meq/ Magnesium Sulfate 20 meq/Calcium Gluconate 10 meq/ Multivitamins 10 ml/Chromium/ Copper/Manganese/ Seleni/Zn 0.5 ml/ Insulin Human Regular 25 unit/ Total Parenteral Nutrition/Amino Acids/Dextrose/ Fat Emulsion Intravenous 1,920 ml @ 80 mls/hr TPN CONT 08/21/19 22:00 08/22/19 21:59 DC 08/21/19 22:04 80 MLS/HR Potassium Chloride 75 meq/ Magnesium Sulfate 20 meq/Calcium Gluconate 10 meq/ Multivitamins 10 ml/Chromium/ Copper/Manganese/ Seleni/Zn 0.5 ml/ Insulin Human Regular 30 unit/ Total Parenteral Nutrition/Amino Acids/Dextrose/ Fat Emulsion Intravenous 1,920 ml @ 80 mls/hr TPN CONT 08/20/19 22:00 08/21/19 22:00 DC 08/20/19 21:51 80 MLS/HR Potassium Chloride 80 meq/ Magnesium Sulfate 20 meq/ Multivitamins 10 ml/Chromium/ Copper/Manganese/ Seleni/Zn 0.5 ml/ Insulin Human Regular 15 unit/ Total Parenteral Nutrition/Amino Acids/Dextrose/ Fat Emulsion Intravenous 1,920 ml @ 80 mls/hr TPN CONT 08/28/19 22:00 08/29/19 21:59 08/28/19 21:42 80 MLS/HR Potassium Chloride/Water 100 ml @ 100 mls/hr 1X ONCE 08/28/19 09:00 08/28/19 09:59 DC 08/28/19 09:37 100 MLS/HR Potassium Phosphate 20 mmol/ Sodium Chloride 106.6667 ml @ 51.667 m... 1X ONCE 07/13/19 13:00 07/13/19 15:03 DC 07/13/19 12:51 51.667 MLS/HR Potassium Acetate 30 meq/Magnesium Sulfate 20 meq/ Calcium Gluconate 10 meq/ Multivitamins 10 ml/Chromium/ Copper/Manganese/ Seleni/Zn 0.5 ml/ Insulin Human Regular 30 unit/ Potassium Chloride 30 meq/ Total Parenteral Nutrition/Amino Acids/Dextrose/ Fat Emulsion Intravenous 1,920 ml @ 80 mls/hr TPN CONT 08/19/19 22:00 08/20/19 21:59 DC 08/19/19 22:34 80 MLS/HR Potassium Acetate 55 meq/Magnesium Sulfate 20 meq/ Calcium Gluconate 10 meq/ Multivitamins 10 ml/Chromium/ Copper/Manganese/ Seleni/Zn 0.5 ml/ Insulin Human Regular 30 unit/ Total Parenteral Nutrition/Amino Acids/Dextrose/ Fat Emulsion Intravenous 1,920 ml @ 80 mls/hr TPN CONT 08/18/19 22:00 08/19/19 21:59 DC 08/19/19 01:00 80 MLS/HR Potassium Acetate 55 meq/Magnesium Sulfate 20 meq/ Calcium Gluconate 10 meq/ Multivitamins 10 ml/Chromium/ Copper/Manganese/ Seleni/Zn 0.5 ml/ Insulin Human Regular 35 unit/ Total Parenteral Nutrition/Amino Acids/Dextrose/ Fat Emulsion Intravenous 1,920 ml @ 80 mls/hr TPN CONT 08/16/19 22:00 08/17/19 21:59 DC 08/16/19 22:02 80 MLS/HR Potassium Acetate 65 meq/Magnesium Sulfate 20 meq/ Calcium Gluconate 10 meq/ Multivitamins 10 ml/Chromium/ Copper/Manganese/ Seleni/Zn 0.5 ml/ Insulin Human Regular 30 unit/ Total Parenteral Nutrition/Amino Acids/Dextrose/ Fat Emulsion Intravenous 1,920 ml @ 80 mls/hr TPN CONT 08/17/19 22:00 08/18/19 21:59 DC 08/17/19 22:22 80 MLS/HR Prochlorperazine Edisylate (Compazine) 5 mg PACU PRN PRN 08/15/19 07:00 08/16/19 06:59 DC Propofol 20 ml @ As Directed STK-MED ONCE 08/15/19 12:26 08/15/19 12:27 DC Ringer's Solution 1,000 ml @ 30 mls/hr Q24H 08/15/19 07:00 08/15/19 18:59 DC Rocuronium [place] (Zemuron) 50 mg STK-MED ONCE 08/15/19 10:56 08/15/19 10:57 DC Sevoflurane (Ultane) 60 ml STK-MED ONCE 08/15/19 12:26 08/15/19 12:27 DC Sodium Bicarbonate 50 meq/Sodium Chloride 1,050 ml @ 75 mls/hr Q14H 07/06/19 07:30 07/11/19 10:28 DC 07/10/19 21:10 75 MLS/HR Sodium Acetate 50 meq/Potassium Acetate 55 meq/ Magnesium Sulfate 20 meq/Calcium Gluconate 10 meq/ Multivitamins 10 ml/Chromium/ Copper/Manganese/ Seleni/Zn 0.5 ml/ Insulin Human Regular 35 unit/ Total Parenteral Nutrition/Amino Acids/Dextrose/ Fat Emulsion Intravenous 1,800 ml @ 75 mls/hr TPN CONT 08/13/19 22:00 08/14/19 21:59 DC 08/13/19 22:03 75 MLS/HR Sodium Chloride 1,000 ml @ 25 mls/hr Q24H 08/15/19 14:30 UNV Sodium Chloride (Normal Saline Flush) 3 ml QSHIFT PRN 08/15/19 13:45 Sodium Chloride 90 meq/Calcium Gluconate 10 meq/ Multivitamins 10 ml/Chromium/ Copper/Manganese/ Seleni/Zn 0.5 ml/ Total Parenteral Nutrition/Amino Acids/Dextrose/ Fat Emulsion Intravenous 1,512 ml @ 63 mls/hr TPN CONT 07/06/19 22:00 07/07/19 21:59 DC 07/06/19 22:06 63 MLS/HR Sodium Chloride 90 meq/Calcium Gluconate 10 meq/ Multivitamins 10 ml/Chromium/ Copper/Manganese/ Seleni/Zn 1 ml/ Total Parenteral Nutrition/Amino Acids/Dextrose/ Fat Emulsion Intravenous 55.005 ml @ 2.292 mls/hr TPN CONT 07/06/19 22:00 07/06/19 12:33 DC Sodium Chloride 90 meq/Magnesium Sulfate 10 meq/ Calcium Gluconate 20 meq/ Multivitamins 10 ml/Chromium/ Copper/Manganese/ Seleni/Zn 0.5 ml/ Total Parenteral Nutrition/Amino Acids/Dextrose/ Fat Emulsion Intravenous 1,512 ml @ 63 mls/hr TPN CONT 07/07/19 22:00 07/08/19 21:59 DC 07/07/19 22:25 63 MLS/HR Sodium Chloride 90 meq/Magnesium Sulfate 12 meq/ Calcium Gluconate 15 meq/ Multivitamins 10 ml/Chromium/ Copper/Manganese/ Seleni/Zn 0.5 ml/ Insulin Human Regular 25 unit/ Total Parenteral Nutrition/Amino Acids/Dextrose/ Fat Emulsion Intravenous 1,400 ml @ 58.333 mls/ hr TPN CONT 07/27/19 22:00 07/28/19 21:59 DC 07/27/19 21:41 58.333 MLS/HR Sodium Chloride 90 meq/Potassium Chloride 15 meq/ Magnesium Sulfate 12 meq/Calcium Gluconate 15 meq/ Multivitamins 10 ml/Chromium/ Copper/Manganese/ Seleni/Zn 0.5 ml/ Insulin Human Regular 25 unit/ Total Parenteral Nutrition/Amino Acids/Dextrose/ Fat Emulsion Intravenous 1,400 ml @ 58.333 mls/ hr TPN CONT 07/26/19 22:00 07/27/19 21:59 DC 07/26/19 22:13 58.333 MLS/HR Sodium Chloride 90 meq/Potassium Chloride 15 meq/ Potassium Phosphate 10 mmol/ Magnesium Sulfate 8 meq/Calcium Gluconate 15 meq/ Multivitamins 10 ml/Chromium/ Copper/Manganese/ Seleni/Zn 0.5 ml/ Insulin Human Regular 25 unit/ Total Parenteral Nutrition/Amino Acids/Dextrose/ Fat Emulsion Intravenous 1,400 ml @ 58.333 mls/ hr TPN CONT 07/24/19 22:00 07/25/19 21:59 DC 07/24/19 21:20 58.333 MLS/HR Sodium Chloride 90 meq/Potassium Chloride 15 meq/ Potassium Phosphate 10 mmol/ Magnesium Sulfate 10 meq/Calcium Gluconate 20 meq/ Multivitamins 10 ml/Chromium/ Copper/Manganese/ Seleni/Zn 0.5 ml/ Total Parenteral Nutrition/Amino Acids/Dextrose/ Fat Emulsion Intravenous 1,400 ml @ 58.333 mls/ hr TPN CONT 07/11/19 22:00 07/12/19 21:59 DC 07/11/19 21:42 58.333 MLS/HR Sodium Chloride 90 meq/Potassium Chloride 15 meq/ Potassium Phosphate 10 mmol/ Magnesium Sulfate 12 meq/Calcium Gluconate 15 meq/ Multivitamins 10 ml/Chromium/ Copper/Manganese/ Seleni/Zn 0.5 ml/ Insulin Human Regular 25 unit/ Total Parenteral Nutrition/Amino Acids/Dextrose/ Fat Emulsion Intravenous 1,400 ml @ 58.333 mls/ hr TPN CONT 07/25/19 22:00 07/26/19 21:59 DC 07/25/19 22:24 58.333 MLS/HR Sodium Chloride 90 meq/Potassium Chloride 15 meq/ Potassium Phosphate 15 mmol/ Magnesium Sulfate 10 meq/Calcium Gluconate 15 meq/ Multivitamins 10 ml/Chromium/ Copper/Manganese/ Seleni/Zn 0.5 ml/ Total Parenteral Nutrition/Amino Acids/Dextrose/ Fat Emulsion Intravenous 1,400 ml @ 58.333 mls/ hr TPN CONT 07/12/19 22:00 07/13/19 21:59 DC 07/12/19 22:17 58.333 MLS/HR Sodium Chloride 90 meq/Potassium Chloride 15 meq/ Potassium Phosphate 15 mmol/ Magnesium Sulfate 10 meq/Calcium Gluconate 20 meq/ Multivitamins 10 ml/Chromium/ Copper/Manganese/ Seleni/Zn 0.5 ml/ Total Parenteral Nutrition/Amino Acids/Dextrose/ Fat Emulsion Intravenous 1,200 ml @ 50 mls/hr TPN CONT 07/10/19 22:00 07/10/19 14:17 DC Sodium Chloride 90 meq/Potassium Chloride 15 meq/ Potassium Phosphate 18 mmol/ Magnesium Sulfate 8 meq/Calcium Gluconate 15 meq/ Multivitamins 10 ml/Chromium/ Copper/Manganese/ Seleni/Zn 0.5 ml/ Insulin Human Regular 10 unit/ Total Parenteral Nutrition/Amino Acids/Dextrose/ Fat Emulsion Intravenous 1,400 ml @ 58.333 mls/ hr TPN CONT 07/15/19 22:00 07/16/19 21:59 DC 07/15/19 21:43 58.333 MLS/HR Sodium Chloride 90 meq/Potassium Chloride 15 meq/ Potassium Phosphate 18 mmol/ Magnesium Sulfate 8 meq/Calcium Gluconate 15 meq/ Multivitamins 10 ml/Chromium/ Copper/Manganese/ Seleni/Zn 0.5 ml/ Insulin Human Regular 15 unit/ Total Parenteral Nutrition/Amino Acids/Dextrose/ Fat Emulsion Intravenous 1,400 ml @ 58.333 mls/ hr TPN CONT 07/18/19 22:00 07/19/19 21:59 DC 07/18/19 21:47 58.333 MLS/HR Sodium Chloride 90 meq/Potassium Chloride 15 meq/ Potassium Phosphate 18 mmol/ Magnesium Sulfate 8 meq/Calcium Gluconate 15 meq/ Multivitamins 10 ml/Chromium/ Copper/Manganese/ Seleni/Zn 0.5 ml/ Insulin Human Regular 20 unit/ Total Parenteral Nutrition/Amino Acids/Dextrose/ Fat Emulsion Intravenous 1,400 ml @ 58.333 mls/ hr TPN CONT 07/21/19 22:00 07/22/19 21:59 DC 07/21/19 22:45 58.333 MLS/HR Sodium Chloride 90 meq/Potassium Chloride 15 meq/ Potassium Phosphate 18 mmol/ Magnesium Sulfate 8 meq/Calcium Gluconate 15 meq/ Multivitamins 10 ml/Chromium/ Copper/Manganese/ Seleni/Zn 0.5 ml/ Total Parenteral Nutrition/Amino Acids/Dextrose/ Fat Emulsion Intravenous 1,400 ml @ 58.333 mls/ hr TPN CONT 07/14/19 22:00 07/15/19 21:59 DC 07/14/19 22:00 58.333 MLS/HR Sodium Chloride 90 meq/Potassium Phosphate 15 mmol/ Magnesium Sulfate 12 meq/Calcium Gluconate 15 meq/ Multivitamins 10 ml/Chromium/ Copper/Manganese/ Seleni/Zn 0.5 ml/ Insulin Human Regular 30 unit/ Total Parenteral Nutrition/Amino Acids/Dextrose/ Fat Emulsion Intravenous 1,400 ml @ 58.333 mls/ hr TPN CONT 07/29/19 22:00 07/30/19 21:59 DC 07/29/19 21:49 58.333 MLS/HR Sodium Chloride 90 meq/Potassium Phosphate 15 mmol/ Magnesium Sulfate 12 meq/Calcium Gluconate 15 meq/ Multivitamins 10 ml/Chromium/ Copper/Manganese/ Seleni/Zn 0.5 ml/ Insulin Human Regular 40 unit/ Total Parenteral Nutrition/Amino Acids/Dextrose/ Fat Emulsion Intravenous 1,400 ml @ 58.333 mls/ hr TPN CONT 07/30/19 22:00 07/31/19 21:59 DC 07/30/19 21:21 58.333 MLS/HR Sodium Chloride 90 meq/Potassium Phosphate 19 mmol/ Magnesium Sulfate 12 meq/Calcium Gluconate 15 meq/ Multivitamins 10 ml/Chromium/ Copper/Manganese/ Seleni/Zn 0.5 ml/ Insulin Human Regular 40 unit/ Total Parenteral Nutrition/Amino Acids/Dextrose/ Fat Emulsion Intravenous 1,400 ml @ 58.333 mls/ hr TPN CONT 07/31/19 22:00 08/01/19 21:59 DC 07/31/19 21:54 58.333 MLS/HR Sodium Chloride 90 meq/Potassium Phosphate 5 mmol/ Magnesium Sulfate 12 meq/Calcium Gluconate 15 meq/ Multivitamins 10 ml/Chromium/ Copper/Manganese/ Seleni/Zn 0.5 ml/ Insulin Human Regular 30 unit/ Total Parenteral Nutrition/Amino Acids/Dextrose/ Fat Emulsion Intravenous 1,400 ml @ 58.333 mls/ hr TPN CONT 07/28/19 22:00 07/29/19 21:59 DC 07/28/19 22:08 58.333 MLS/HR Sodium Chloride 100 meq/Potassium Chloride 40 meq/ Magnesium Sulfate 15 meq/Calcium Gluconate 15 meq/ Multivitamins 10 ml/Chromium/ Copper/Manganese/ Seleni/Zn 0.5 ml/ Insulin Human Regular 35 unit/ Total Parenteral Nutrition/Amino Acids/Dextrose/ Fat Emulsion Intravenous 1,400 ml @ 58.333 mls/ hr TPN CONT 08/07/19 22:00 08/08/19 21:59 DC 08/07/19 22:46 58.333 MLS/HR Sodium Chloride 100 meq/Potassium Chloride 40 meq/ Magnesium Sulfate 20 meq/Calcium Gluconate 10 meq/ Multivitamins 10 ml/Chromium/ Copper/Manganese/ Seleni/Zn 0.5 ml/ Insulin Human Regular 35 unit/ Total Parenteral Nutrition/Amino Acids/Dextrose/ Fat Emulsion Intravenous 1,400 ml @ 58.333 mls/ hr TPN CONT 08/11/19 22:00 08/12/19 21:59 DC 08/12/19 00:06 58.333 MLS/HR Sodium Chloride 100 meq/Potassium Chloride 40 meq/ Magnesium Sulfate 20 meq/Calcium Gluconate 15 meq/ Multivitamins 10 ml/Chromium/ Copper/Manganese/ Seleni/Zn 0.5 ml/ Insulin Human Regular 35 unit/ Total Parenteral Nutrition/Amino Acids/Dextrose/ Fat Emulsion Intravenous 1,400 ml @ 58.333 mls/ hr TPN CONT 08/10/19 22:00 08/11/19 21:59 DC 08/10/19 22:27 58.333 MLS/HR Sodium Chloride 100 meq/Potassium Phosphate 10 mmol/ Magnesium Sulfate 12 meq/Calcium Gluconate 15 meq/ Multivitamins 10 ml/Chromium/ Copper/Manganese/ Seleni/Zn 0.5 ml/ Insulin Human Regular 35 unit/ Potassium Chloride 20 meq/ Total Parenteral Nutrition/Amino Acids/Dextrose/ Fat Emulsion Intravenous 1,400 ml @ 58.333 mls/ hr TPN CONT 08/04/19 22:00 08/05/19 21:59 DC 08/04/19 22:10 58.333 MLS/HR Sodium Chloride 100 meq/Potassium Phosphate 19 mmol/ Magnesium Sulfate 12 meq/Calcium Gluconate 15 meq/ Multivitamins 10 ml/Chromium/ Copper/Manganese/ Seleni/Zn 0.5 ml/ Insulin Human Regular 40 unit/ Potassium Chloride 20 meq/ Total Parenteral Nutrition/Amino Acids/Dextrose/ Fat Emulsion Intravenous 1,400 ml @ 58.333 mls/ hr TPN CONT 08/03/19 22:00 08/04/19 21:59 DC 08/03/19 21:20 58.333 MLS/HR Sodium Chloride 100 meq/Potassium Phosphate 5 mmol/ Magnesium Sulfate 12 meq/Calcium Gluconate 15 meq/ Multivitamins 10 ml/Chromium/ Copper/Manganese/ Seleni/Zn 0.5 ml/ Insulin Human Regular 35 unit/ Potassium Chloride 20 meq/ Total Parenteral Nutrition/Amino Acids/Dextrose/ Fat Emulsion Intravenous 1,400 ml @ 58.333 mls/ hr TPN CONT 08/05/19 22:00 08/06/19 21:59 DC 08/05/19 22:59 58.333 MLS/HR Succinylcholine Chloride (Anectine) 120 mg 1X ONCE 07/11/19 08:30 07/11/19 08:31 DC 07/11/19 08:34 120 MG Vecuronium [place] (Norcuron Bolus) 6 mg PRN Q6HRS PRN 08/25/19 19:15 08/25/19 19:35 DC Lab Laboratory Tests Test 08/28/19 12:40 08/28/19 15:20 08/28/19 17:44 08/29/19 00:13 Glucose (Fingerstick) 149 mg/dL (70-99) 142 mg/dL (70-99) 162 mg/dL (70-99) Sodium Level 146 mmol/L (136-145) Potassium Level 3.4 mmol/L (3.5-5.1) Chloride Level 106 mmol/L (98-107) Carbon Dioxide Level 33 mmol/L (21-32) Anion Gap 7 (6-14) Blood Urea Nitrogen 28 mg/dL (7-20) Creatinine 0.9 mg/dL (0.6-1.0) Estimated GFR (Cockcroft-Gault) 66.5 BUN/Creatinine Ratio 31 (6-20) Glucose Level 166 mg/dL (70-99) Calcium Level 8.2 mg/dL (8.5-10.1) Total Bilirubin 0.4 mg/dL (0.2-1.0) Aspartate Amino Transf (AST/SGOT) 38 U/L (15-37) Alanine Aminotransferase (ALT/SGPT) 39 U/L (14-59) Alkaline Phosphatase 95 U/L (46-116) Total Protein 5.5 g/dL (6.4-8.2) Albumin 1.6 g/dL (3.4-5.0) Albumin/Globulin Ratio 0.4 (1.0-1.7) Test 08/29/19 05:00 08/29/19 05:06 Sodium Level 145 mmol/L (136-145) Potassium Level 3.8 mmol/L (3.5-5.1) Chloride Level 106 mmol/L (98-107) Carbon Dioxide Level 33 mmol/L (21-32) Anion Gap 6 (6-14) Blood Urea Nitrogen 29 mg/dL (7-20) Creatinine 0.7 mg/dL (0.6-1.0) Estimated GFR (Cockcroft-Gault) 88.9 Glucose Level 125 mg/dL (70-99) Calcium Level 8.4 mg/dL (8.5-10.1) Phosphorus Level 3.8 mg/dL (2.6-4.7) Magnesium Level 2.0 mg/dL (1.8-2.4) Glucose (Fingerstick) 126 mg/dL (70-99) Results All relevant outside records, renal labs, imaging studies, telemetry/EKG's were reviewed. VERENA KENT MD August 29, 2019 11:05
[2019-08-29] MEDS: MICAFUNGIN 100 MG in IV DEXTROSE 5% 100ML 100 ML IV SCH (11:08)
--- NOTE | 2019-08-29 11:50 | PDOC ---
SURGICAL PROGRESS NOTE Subjective Steven for Dr Gareth Joiner awake, asking questions per RN reflux/emesis less with addition of Reglan Vital Signs Vital Signs Date Time Temp Pulse Resp B/P (MAP) Pulse Ox O2 Delivery O2 Flow Rate FiO2 08/29/19 11:30 18 97 Ventilator 08/29/19 06:00 101 134/81 (98) 08/29/19 04:00 98.4 98.4 I&O Intake and Output 08/29/19 07:00 Intake Total 3219 ml Output Total 4855 ml Balance -1636 ml IV Total 3219 ml Output Urine Total 4495 ml Drainage Total 360 ml PATIENT HAS A ROSARIO: Yes (accurate I and O) General: Alert Abdomen: Soft, Other (drains in place) Skin: Other (warm, dry) Labs Laboratory Tests Test 08/27/19 13:34 08/27/19 18:32 08/28/19 00:54 08/28/19 06:15 Glucose (Fingerstick) 182 mg/dL (70-99) 139 mg/dL (70-99) 156 mg/dL (70-99) White Blood Count 10.3 x10^3/uL (4.0-11.0) Red Blood Count 2.53 x10^6/uL (3.50-5.40) Hemoglobin 7.3 g/dL (12.0-15.5) Hematocrit 22.5 % (36.0-47.0) Mean Corpuscular Volume 89 fL (79-100) Mean Corpuscular Hemoglobin 29 pg (25-35) Mean Corpuscular Hemoglobin Concent 32 g/dL (31-37) Red Cell Distribution Width 17.8 % (11.5-14.5) Platelet Count 439 x10^3/uL (140-400) Sodium Level 148 mmol/L (136-145) Potassium Level 3.4 mmol/L (3.5-5.1) Chloride Level 109 mmol/L (98-107) Carbon Dioxide Level 31 mmol/L (21-32) Anion Gap 8 (6-14) Blood Urea Nitrogen 30 mg/dL (7-20) Creatinine 0.7 mg/dL (0.6-1.0) Estimated GFR (Cockcroft-Gault) 88.9 BUN/Creatinine Ratio 43 (6-20) Glucose Level 135 mg/dL (70-99) Calcium Level 8.2 mg/dL (8.5-10.1) Magnesium Level 1.6 mg/dL (1.8-2.4) Total Bilirubin 0.5 mg/dL (0.2-1.0) Aspartate Amino Transf (AST/SGOT) 40 U/L (15-37) Alanine Aminotransferase (ALT/SGPT) 41 U/L (14-59) Alkaline Phosphatase 123 U/L (46-116) Total Protein 5.4 g/dL (6.4-8.2) Albumin 1.6 g/dL (3.4-5.0) Albumin/Globulin Ratio 0.4 (1.0-1.7) Test 08/28/19 06:23 08/28/19 12:40 08/28/19 15:20 08/28/19 17:44 Glucose (Fingerstick) 131 mg/dL (70-99) 149 mg/dL (70-99) 142 mg/dL (70-99) Sodium Level 146 mmol/L (136-145) Potassium Level 3.4 mmol/L (3.5-5.1) Chloride Level 106 mmol/L (98-107) Carbon Dioxide Level 33 mmol/L (21-32) Anion Gap 7 (6-14) Blood Urea Nitrogen 28 mg/dL (7-20) Creatinine 0.9 mg/dL (0.6-1.0) Estimated GFR (Cockcroft-Gault) 66.5 BUN/Creatinine Ratio 31 (6-20) Glucose Level 166 mg/dL (70-99) Calcium Level 8.2 mg/dL (8.5-10.1) Total Bilirubin 0.4 mg/dL (0.2-1.0) Aspartate Amino Transf (AST/SGOT) 38 U/L (15-37) Alanine Aminotransferase (ALT/SGPT) 39 U/L (14-59) Alkaline Phosphatase 95 U/L (46-116) Total Protein 5.5 g/dL (6.4-8.2) Albumin 1.6 g/dL (3.4-5.0) Albumin/Globulin Ratio 0.4 (1.0-1.7) Test 08/29/19 00:13 08/29/19 05:00 08/29/19 05:06 Glucose (Fingerstick) 162 mg/dL (70-99) 126 mg/dL (70-99) Sodium Level 145 mmol/L (136-145) Potassium Level 3.8 mmol/L (3.5-5.1) Chloride Level 106 mmol/L (98-107) Carbon Dioxide Level 33 mmol/L (21-32) Anion Gap 6 (6-14) Blood Urea Nitrogen 29 mg/dL (7-20) Creatinine 0.7 mg/dL (0.6-1.0) Estimated GFR (Cockcroft-Gault) 88.9 Glucose Level 125 mg/dL (70-99) Calcium Level 8.4 mg/dL (8.5-10.1) Phosphorus Level 3.8 mg/dL (2.6-4.7) Magnesium Level 2.0 mg/dL (1.8-2.4) Laboratory Tests Test 08/28/19 12:40 08/28/19 15:20 08/28/19 17:44 08/29/19 00:13 Glucose (Fingerstick) 149 mg/dL (70-99) 142 mg/dL (70-99) 162 mg/dL (70-99) Sodium Level 146 mmol/L (136-145) Potassium Level 3.4 mmol/L (3.5-5.1) Chloride Level 106 mmol/L (98-107) Carbon Dioxide Level 33 mmol/L (21-32) Anion Gap 7 (6-14) Blood Urea Nitrogen 28 mg/dL (7-20) Creatinine 0.9 mg/dL (0.6-1.0) Estimated GFR (Cockcroft-Gault) 66.5 BUN/Creatinine Ratio 31 (6-20) Glucose Level 166 mg/dL (70-99) Calcium Level 8.2 mg/dL (8.5-10.1) Total Bilirubin 0.4 mg/dL (0.2-1.0) Aspartate Amino Transf (AST/SGOT) 38 U/L (15-37) Alanine Aminotransferase (ALT/SGPT) 39 U/L (14-59) Alkaline Phosphatase 95 U/L (46-116) Total Protein 5.5 g/dL (6.4-8.2) Albumin 1.6 g/dL (3.4-5.0) Albumin/Globulin Ratio 0.4 (1.0-1.7) Test 08/29/19 05:00 08/29/19 05:06 Sodium Level 145 mmol/L (136-145) Potassium Level 3.8 mmol/L (3.5-5.1) Chloride Level 106 mmol/L (98-107) Carbon Dioxide Level 33 mmol/L (21-32) Anion Gap 6 (6-14) Blood Urea Nitrogen 29 mg/dL (7-20) Creatinine 0.7 mg/dL (0.6-1.0) Estimated GFR (Cockcroft-Gault) 88.9 Glucose Level 125 mg/dL (70-99) Calcium Level 8.4 mg/dL (8.5-10.1) Phosphorus Level 3.8 mg/dL (2.6-4.7) Magnesium Level 2.0 mg/dL (1.8-2.4) Glucose (Fingerstick) 126 mg/dL (70-99) Problem List Problems Medical Problems: (1) Acute pancreatitis Status: Acute (2) Cholelithiasis Status: Acute Assessment/Plan severe pancreatitis s/p surgical/percutaneous drain placements continue supportive care MARV WYNNE MD August 29, 2019 11:50
--- NOTE | 2019-08-29 12:45 | PDOC ---
Subjective: Subjective: Has abd pain and nausea. Objective: Objective: D/w nurse - passed gas, nausea improved w/ Reglan, not much from NG, daughters got to visit for Mother's Day. Vital Signs: Vital Signs Date Time Temp Pulse Resp B/P (MAP) Pulse Ox O2 Delivery O2 Flow Rate FiO2 08/29/19 11:30 18 97 Ventilator 08/29/19 06:00 101 134/81 (98) 08/29/19 04:00 98.4 98.4 Labs: Laboratory Tests Test 08/28/19 12:40 08/28/19 15:20 08/28/19 17:44 08/29/19 00:13 Glucose (Fingerstick) 149 mg/dL 142 mg/dL 162 mg/dL Sodium Level 146 mmol/L Potassium Level 3.4 mmol/L Chloride Level 106 mmol/L Carbon Dioxide Level 33 mmol/L Anion Gap 7 Blood Urea Nitrogen 28 mg/dL Creatinine 0.9 mg/dL Estimated GFR (Cockcroft-Gault) 66.5 BUN/Creatinine Ratio 31 Glucose Level 166 mg/dL Calcium Level 8.2 mg/dL Total Bilirubin 0.4 mg/dL Aspartate Amino Transf (AST/SGOT) 38 U/L Alanine Aminotransferase (ALT/SGPT) 39 U/L Alkaline Phosphatase 95 U/L Total Protein 5.5 g/dL Albumin 1.6 g/dL Albumin/Globulin Ratio 0.4 Test 08/29/19 05:00 08/29/19 05:06 08/29/19 12:05 Sodium Level 145 mmol/L Potassium Level 3.8 mmol/L Chloride Level 106 mmol/L Carbon Dioxide Level 33 mmol/L Anion Gap 6 Blood Urea Nitrogen 29 mg/dL Creatinine 0.7 mg/dL Estimated GFR (Cockcroft-Gault) 88.9 Glucose Level 125 mg/dL Calcium Level 8.4 mg/dL Phosphorus Level 3.8 mg/dL Magnesium Level 2.0 mg/dL Glucose (Fingerstick) 126 mg/dL 181 mg/dL ANAEROBIC-AEROBIC CULTURE PENDING ANAEROBIC RES 1 PENDING AEROBIC CULT Preliminary Preliminary report AEROBIC RES 1 Preliminary Yeast isolated. 4+ Request for further identification must be made within 1 week. GRAM STAIN Final Final report GRAM STAIN RES 1 Final Comment No white blood cells seen. GRAM STAIN RES 2 Final No organisms seen BLOOD CULTURE Final NO GROWTH AFTER 5 DAYS Imaging: IR procedure 08/25 Impression: 1. CT-guided placement of 3 intra-abdominal drains with aspiration of 2300 cc of thin turbid brown fluid and necrotic debris as described. KUB 08/26 IMPRESSION: 1. Stable to slight increased distended air-filled loops of bowel throughout the abdomen. The transition point is seen. Correlate for ileus. 2. Multiple surgical drains overlying the abdomen. CXR 08/26 IMPRESSION: 1. Stable diffuse infiltrate and moderate pleural effusions. 2. Stable support lines and tubes. PE: GEN: NAD LUNGS: trach/vent HEART: RRR ABD: NGT, distended, drains, uncomfortable - seems a bit better NEURO/PSYCH: A & O 3 A/P: Gallstone pancreatitis, MOSF -- Other per Dr. Weber. Hemodynamically unstable?: No Is patient in severe pain?: Yes Is NPO status required?: Yes CYNDEE FALCON August 29, 2019 12:44
[2019-08-29] MEDS: NORMAL SALINE IV SCH (13:10)
[2019-08-29] MEDS: DAPTOMYCIN IV SCH (13:10)
[2019-08-29] MEDS: IV NORMAL SALINE 1000ML BAG 1,000 ML IV SCH (13:30)
--- NOTE | 2019-08-29 13:33 | NUR ---
SS following up with discharge planning. SS reviewed pt chart and discussed with RN, Yasmine. Pt has trach. Still not able to tolerate speaking valve and is NPO and on TPN. Pt has three IV antibiotics. Pt's drains remain and are still continuing to drain. Per RN, pt did have flatus today. SS will continue to follow for discharge planning.
--- NOTE | 2019-08-29 14:05 | PDOC ---
PULMONARY PROGRESS NOTES Subjective Patient intubated on 07/10 , s/p trach 4/6, awake alert follows commands On pressure support PEEP 5 and 30% Nursing reports ongoing N/V Vitals Vital Signs Date Time Temp Pulse Resp B/P (MAP) Pulse Ox O2 Delivery O2 Flow Rate FiO2 08/29/19 12:00 21 97 Ventilator 08/29/19 08:00 98.2 98 125/67 (86) 98.2 ROS: No Chest Pain, No Abdominal Pain, No Increase Cough General: Alert, No acute distress Lungs: Crackles Cardiovascular: S1, S2 Abdomen: Soft, Non-tender, Other (firm) Neuro Exam: Alert Extremities: Other (+3 generalized edema ) Skin: Warm, Dry Labs Laboratory Tests Test 08/27/19 18:32 08/28/19 00:54 08/28/19 06:15 08/28/19 06:23 Glucose (Fingerstick) 139 mg/dL (70-99) 156 mg/dL (70-99) 131 mg/dL (70-99) White Blood Count 10.3 x10^3/uL (4.0-11.0) Red Blood Count 2.53 x10^6/uL (3.50-5.40) Hemoglobin 7.3 g/dL (12.0-15.5) Hematocrit 22.5 % (36.0-47.0) Mean Corpuscular Volume 89 fL (79-100) Mean Corpuscular Hemoglobin 29 pg (25-35) Mean Corpuscular Hemoglobin Concent 32 g/dL (31-37) Red Cell Distribution Width 17.8 % (11.5-14.5) Platelet Count 439 x10^3/uL (140-400) Sodium Level 148 mmol/L (136-145) Potassium Level 3.4 mmol/L (3.5-5.1) Chloride Level 109 mmol/L (98-107) Carbon Dioxide Level 31 mmol/L (21-32) Anion Gap 8 (6-14) Blood Urea Nitrogen 30 mg/dL (7-20) Creatinine 0.7 mg/dL (0.6-1.0) Estimated GFR (Cockcroft-Gault) 88.9 BUN/Creatinine Ratio 43 (6-20) Glucose Level 135 mg/dL (70-99) Calcium Level 8.2 mg/dL (8.5-10.1) Magnesium Level 1.6 mg/dL (1.8-2.4) Total Bilirubin 0.5 mg/dL (0.2-1.0) Aspartate Amino Transf (AST/SGOT) 40 U/L (15-37) Alanine Aminotransferase (ALT/SGPT) 41 U/L (14-59) Alkaline Phosphatase 123 U/L (46-116) Total Protein 5.4 g/dL (6.4-8.2) Albumin 1.6 g/dL (3.4-5.0) Albumin/Globulin Ratio 0.4 (1.0-1.7) Test 08/28/19 12:40 08/28/19 15:20 08/28/19 17:44 08/29/19 00:13 Glucose (Fingerstick) 149 mg/dL (70-99) 142 mg/dL (70-99) 162 mg/dL (70-99) Sodium Level 146 mmol/L (136-145) Potassium Level 3.4 mmol/L (3.5-5.1) Chloride Level 106 mmol/L (98-107) Carbon Dioxide Level 33 mmol/L (21-32) Anion Gap 7 (6-14) Blood Urea Nitrogen 28 mg/dL (7-20) Creatinine 0.9 mg/dL (0.6-1.0) Estimated GFR (Cockcroft-Gault) 66.5 BUN/Creatinine Ratio 31 (6-20) Glucose Level 166 mg/dL (70-99) Calcium Level 8.2 mg/dL (8.5-10.1) Total Bilirubin 0.4 mg/dL (0.2-1.0) Aspartate Amino Transf (AST/SGOT) 38 U/L (15-37) Alanine Aminotransferase (ALT/SGPT) 39 U/L (14-59) Alkaline Phosphatase 95 U/L (46-116) Total Protein 5.5 g/dL (6.4-8.2) Albumin 1.6 g/dL (3.4-5.0) Albumin/Globulin Ratio 0.4 (1.0-1.7) Test 08/29/19 05:00 08/29/19 05:06 08/29/19 12:05 Sodium Level 145 mmol/L (136-145) Potassium Level 3.8 mmol/L (3.5-5.1) Chloride Level 106 mmol/L (98-107) Carbon Dioxide Level 33 mmol/L (21-32) Anion Gap 6 (6-14) Blood Urea Nitrogen 29 mg/dL (7-20) Creatinine 0.7 mg/dL (0.6-1.0) Estimated GFR (Cockcroft-Gault) 88.9 Glucose Level 125 mg/dL (70-99) Calcium Level 8.4 mg/dL (8.5-10.1) Phosphorus Level 3.8 mg/dL (2.6-4.7) Magnesium Level 2.0 mg/dL (1.8-2.4) Glucose (Fingerstick) 126 mg/dL (70-99) 181 mg/dL (70-99) Laboratory Tests Test 08/28/19 15:20 08/28/19 17:44 08/29/19 00:13 08/29/19 05:00 Sodium Level 146 mmol/L (136-145) 145 mmol/L (136-145) Potassium Level 3.4 mmol/L (3.5-5.1) 3.8 mmol/L (3.5-5.1) Chloride Level 106 mmol/L (98-107) 106 mmol/L (98-107) Carbon Dioxide Level 33 mmol/L (21-32) 33 mmol/L (21-32) Anion Gap 7 (6-14) 6 (6-14) Blood Urea Nitrogen 28 mg/dL (7-20) 29 mg/dL (7-20) Creatinine 0.9 mg/dL (0.6-1.0) 0.7 mg/dL (0.6-1.0) Estimated GFR (Cockcroft-Gault) 66.5 88.9 BUN/Creatinine Ratio 31 (6-20) Glucose Level 166 mg/dL (70-99) 125 mg/dL (70-99) Calcium Level 8.2 mg/dL (8.5-10.1) 8.4 mg/dL (8.5-10.1) Total Bilirubin 0.4 mg/dL (0.2-1.0) Aspartate Amino Transf (AST/SGOT) 38 U/L (15-37) Alanine Aminotransferase (ALT/SGPT) 39 U/L (14-59) Alkaline Phosphatase 95 U/L (46-116) Total Protein 5.5 g/dL (6.4-8.2) Albumin 1.6 g/dL (3.4-5.0) Albumin/Globulin Ratio 0.4 (1.0-1.7) Glucose (Fingerstick) 142 mg/dL (70-99) 162 mg/dL (70-99) Phosphorus Level 3.8 mg/dL (2.6-4.7) Magnesium Level 2.0 mg/dL (1.8-2.4) Test 08/29/19 05:06 08/29/19 12:05 Glucose (Fingerstick) 126 mg/dL (70-99) 181 mg/dL (70-99) Medications Active Scripts Medications Dose Route/Sig Max Daily Dose Days Date Category Bisoprolol Fumarate 5 Mg Tablet 10 Mg PO DAILY 07/04/19 Reported Comments CXR 08/27/2019 IMPRESSION: 1. Stable diffuse infiltrate and moderate pleural effusions. 2. Stable support lines and tubes. KUB 08/27/2019 IMPRESSION: 1. Stable to slight increased distended air-filled loops of bowel throughout the abdomen. The transition point is seen. Correlate for ileus. 2. Multiple surgical drains overlying the abdomen. Impression . IMPRESSION: 1. Acute hypoxemic respiratory failure secondary to ARDS status post trach, 2. Gallstone pancreatitis 3. Severe metabolic acidosis.stable 4. Acute kidney injury-stable, ON HD-- continue to improve 5. Acute gallstone pancreatitis. 6. Hypoalbuminemia. 7. Moderate persistent effusions 8. Fever- Per ID, per surgery--resolved 9. Chronic anemia 10. Covid 19 testing negative 11. Moderate to large ascites-S/P paracentisis 12.S/P paracentisis with 4 liters removed on 08/03/19 13. S/P IR drain placement on 08/26/2019 Plan . Patient over the last couple of days has deteriorated a bit, will continue pressure support She was off mechanical ventilation for a couple of days Follow surgery recs-- S/P 3 drain placed in IR on 08/26/2019 Follow ID recs for ABX Follow nephrology recs Continue TPN DVT/GI PPX: heparin SQ/ protonix D/W RN and RT CODE:FULL HARMEET BEE MD August 29, 2019 14:05
[2019-08-29] MEDS: TPN PER PHARMACY MC PRN (15:24)
--- NOTE | 2019-08-29 17:58 | PDOC ---
PROGRESS NOTES Assessment Assessment Respiratory failure. Seizure. Metabolic encephalopathy. Fever, recurrent, T100.5 degree on 08/14/19. Metabolic acidosis. Diffuse pulmonary infiltrate. Pleural effusion. Pancreatitis, necrotizing. Gallstone. Leukocytosis. Lymphopenia. Electrolytes imbalances. Hyperglycemia. DM. HTN. HLD. Anemia. Abnormal CXR. Obesity. RECOMMENDATIONS/PLAN: Continue life support in CCU at the present time. Keppra if has further seizures. Treat medical diseases. OT/PT. EEG: No seizure activity. OBJECTIVE: 08/29/19: No seizures reported over night. Past Medical History Cardiovascular: HTN, Hyperlipidemia Endocrine: Diabetes Family History Unobtainable. Social HistoryU not obtainable Allergies Coded Allergies: Codeine (Verified Allergy, Intermediate, rash, 07/04/19) ROS Unobtainable. NEUROLOGICAL EXAMINATION: Sleepiness. Not fully oriented to time, place and person. PERRL. EOMI not examined. CN: no acute focal findings. Muscle tone: Decreased. Muscle strength: 3 UE, 2-3 LE. DTR: 1-2 Plantar reflex: Neutral response bilaterally Gait: not able to walk. Sensory exam: no response to stimuli.. Not able to access cerebellar signs. F-T-N test not performed. Patient seen in CCU. Objective Objective Vital Signs Date Time Temp Pulse Resp B/P (MAP) Pulse Ox O2 Delivery O2 Flow Rate FiO2 08/29/19 15:30 97 Ventilator 08/29/19 15:00 106 20 119/72 (88) 08/29/19 12:00 98.0 98.0 Intake and Output 08/29/19 06:59 Intake Total 3219 ml Output Total 4855 ml Balance -1636 ml IV Total 3219 ml Output Urine Total 4495 ml Drainage Total 360 ml Vitals Signs Vitals VS - Last 72 Hours, by Label Date Time Temp Pulse Resp B/P (MAP) Pulse Ox O2 Delivery O2 Flow Rate FiO2 08/29/19 15:30 97 Ventilator 08/29/19 15:00 106 20 119/72 (88) 98 Ventilator 08/29/19 14:00 102 18 144/92 (109) 98 Ventilator 08/29/19 13:00 104 16 154/96 (115) 98 Ventilator 08/29/19 12:00 98.0 110 17 165/96 (119) 97 Ventilator 98.0 5/11/20 12:00 Mechanical Ventilator 08/29/19 12:00 21 97 Ventilator 08/29/19 11:30 18 97 Ventilator 08/29/19 11:19 97 Ventilator 08/29/19 11:00 100 16 156/85 (108) 97 Ventilator 08/29/19 10:00 92 15 140/82 (101) 99 Ventilator 08/29/19 09:00 88 16 114/66 (82) 99 Ventilator 08/29/19 08:00 Mechanical Ventilator 08/29/19 08:00 98.2 98 16 125/67 (86) 98 Ventilator 98.2 08/29/19 07:01 98 Ventilator 08/29/19 07:00 97 17 137/65 (89) 98 Ventilator 08/29/19 06:49 15 Ventilator 08/29/19 06:19 19 Ventilator 08/29/19 06:00 101 16 134/81 (98) 99 Ventilator 08/29/19 05:27 97 Ventilator 08/29/19 05:00 83 19 122/72 (89) 99 Ventilator 08/29/19 04:00 Mechanical Ventilator 08/29/19 04:00 98.4 90 17 127/68 (87) 98 Ventilator 98.4 08/29/19 03:00 85 20 135/78 (97) 99 Ventilator 08/29/19 02:00 91 22 127/72 (90) 98 Ventilator 08/29/19 01:20 97 Ventilator 08/29/19 01:00 94 21 136/66 (89) 97 Ventilator 08/29/19 00:00 Mechanical Ventilator 08/29/19 00:00 98.0 95 19 149/79 (102) 95 Ventilator 98.0 08/28/19 23:41 22 Ventilator 08/28/19 23:11 23 Ventilator 08/28/19 23:00 89 22 156/73 (100) 97 Ventilator 08/28/19 22:42 98 Ventilator 08/28/19 22:00 103 19 147/74 (98) 96 Ventilator 08/28/19 21:00 99 23 140/80 (100) 96 Ventilator 08/28/19 20:00 97.8 97 21 127/78 (94) 98 Ventilator 97.8 08/28/19 20:00 Mechanical Ventilator 08/28/19 19:36 98 Ventilator 08/28/19 19:13 19 Ventilator 08/28/19 19:00 99 19 138/68 (91) 97 Ventilator 08/28/19 18:43 21 99 Ventilator 08/28/19 18:00 108 16 156/73 (100) 97 Ventilator 08/28/19 17:23 98 Ventilator 08/28/19 17:00 96 17 140/65 (90) 97 Ventilator 08/28/19 16:00 Mechanical Ventilator 08/28/19 16:00 98.7 104 18 138/78 (98) 99 Ventilator 98.7 08/28/19 15:30 98 Ventilator 08/28/19 15:00 92 18 131/64 (86) 96 Ventilator 08/28/19 14:00 100 18 128/69 (88) 99 Ventilator 08/28/19 13:00 102 22 146/76 (99) 97 Ventilator 08/28/19 12:40 18 99 Ventilator 08/28/19 12:37 98 Ventilator 08/28/19 12:10 21 98 Ventilator 08/28/19 12:00 98.7 104 21 138/78 (98) 97 Ventilator 98.7 08/28/19 12:00 Mechanical Ventilator 08/28/19 11:00 106 16 126/78 (94) 97 Ventilator 08/28/19 10:00 104 17 136/75 (95) 97 Ventilator 08/28/19 09:35 97 Ventilator 08/28/19 09:00 102 19 140/73 (95) 97 Ventilator 08/28/19 08:41 20 98 Ventilator 08/28/19 08:18 97 Ventilator 08/28/19 08:11 19 96 Ventilator 08/28/19 08:00 Mechanical Ventilator 08/28/19 08:00 98.9 103 22 149/85 (106) 95 Ventilator 98.9 08/28/19 07:00 104 21 136/70 (92) 97 Ventilator Laboratory Laboratory Laboratory Tests Test 08/29/19 00:13 08/29/19 05:00 08/29/19 05:06 08/29/19 12:05 Glucose (Fingerstick) 162 mg/dL (70-99) 126 mg/dL (70-99) 181 mg/dL (70-99) Sodium Level 145 mmol/L (136-145) Potassium Level 3.8 mmol/L (3.5-5.1) Chloride Level 106 mmol/L (98-107) Carbon Dioxide Level 33 mmol/L (21-32) Anion Gap 6 (6-14) Blood Urea Nitrogen 29 mg/dL (7-20) Creatinine 0.7 mg/dL (0.6-1.0) Estimated GFR (Cockcroft-Gault) 88.9 Glucose Level 125 mg/dL (70-99) Calcium Level 8.4 mg/dL (8.5-10.1) Phosphorus Level 3.8 mg/dL (2.6-4.7) Magnesium Level 2.0 mg/dL (1.8-2.4) Microbiology 08/24/19 Aerobic and Anaerobic Culture - Preliminary, Resulted 08/24/19 Anaerobic Culture Result 1 (ALEXANDRA) - Preliminary, Resulted 08/24/19 Aerobic Culture - Final, Resulted 08/24/19 Aerobic Culture Result 1 (ALEXANDRA) - Final, Resulted 08/24/19 Gram Stain - Final, Resulted 08/24/19 Gram Stain Result 1 (ALEXANDRA) - Final, Resulted 08/24/19 Gram Stain Result 2 (ALEXANDRA) - Final, Resulted 08/22/19 Blood Culture - Final, Complete NO GROWTH AFTER 5 DAYS 08/18/19 Aerobic Culture - Final, Complete 08/18/19 Aerobic Culture Result 1 (ALEXANDRA) - Final, Complete 08/18/19 Gram Stain - Final, Complete 08/18/19 Gram Stain Result 1 (ALEXANDRA) - Final, Complete 08/18/19 Gram Stain Result 2 (ALEXANDRA) - Final, Complete 07/31/19 Urine Culture - Final, Complete 07/31/19 Urine Culture Result 1 (ALEXANDRA) - Final, Complete Medication Medications Current Medications Potassium Chloride 80 meq/ Magnesium Sulfate 20 meq/ Multivitamins 10 ml/Chromium/ Copper/Manganese/ Seleni/Zn 0.5 ml/ Insulin Human Regular 15 unit/ Total Parenteral Nutrition/Amino Acids/Dextrose/ Fat Emulsion Intravenous 1,920 ml @ 80 mls/hr TPN CONT IV Last administered on 08/28/19at 21:42; Start 08/28/19 at 22:00; Stop 08/29/19 at 21:59 Potassium Chloride 80 meq/ Magnesium Sulfate 20 meq/ Multivitamins 10 ml/Chromium/ Copper/Manganese/ Seleni/Zn 0.5 ml/ Insulin Human Regular 15 unit/ Total Parenteral Nutrition/Amino Acids/Dextrose/ Fat Emulsion Intravenous 1,920 ml @ 80 mls/hr TPN CONT IV ; Start 08/29/19 at 22:00; Stop 08/30/19 at 21:59 Comment Review of Relevant I have reviewed the following items kolby (where applicable) has been applied. ZANDER ZUÑIGA MD August 29, 2019 17:58
[2019-08-29] MEDS ORDERED: DEXTROSE 70% IV SCH ×8 (22:00)
[2019-08-29] MEDS ORDERED: AMINO ACID IV SCH ×8 (22:00)
[2019-08-29] MEDS ORDERED: TOTAL PARENTERAL NUTRITION IV SCH ×8 (22:00)
[2019-08-29] MEDS ORDERED: [UNRECOGNIZED DRUG - OTHER] IV SCH ×8 (22:00)
[2019-08-30] VITALS (23 sets, daily range): BP systolic 105–177; BP diastolic 62–95
[2019-08-30] MEDS: METOCLOPRAMIDE HCL 10 MG/2 ML VIAL. IVP PRN ×2 (00:16→06:34)
[2019-08-30] MEDS: DEXMEDETOMIDINE 400 MCG in IV NORMAL SALINE 100ML 96 ML IV PRN ×5 (00:17→21:47)
[2019-08-30] MEDS: HYDROmorphone 2 MG/ML VIAL IVP PRN ×3 (00:53→14:08)
[2019-08-30] MEDS: INSULIN LISPRO 300 UNITS/3 ML VIAL. SQ SCH ×4 (06:00→18:00)
[2019-08-30] MEDS: MEROPENEM 1 GM in IV NORMAL SALINE 100ML 100 ML IV SCH ×3 (06:34→21:38)
--- NOTE | 2019-08-30 07:15 | RAD ---
PORTABLE CHEST 1V History: Pleural effusions Comparison: August 27, 2019 Findings: Moderate bilateral layering pleural effusions, unchanged. Patchy central and bibasilar opacities, unchanged. Unchanged heart size. Stable tracheostomy tube, enteric tube and right PICC. No pneumothorax. Impression: 1. Moderate bilateral layering pleural effusions, unchanged. 2. Patchy central and bibasilar opacities, unchanged. Electronically signed by: Sukhdev Sadler DO (08/30/2019 7:11 AM) [id number]
[2019-08-30] MEDS: PANTOPRAZOLE IV PUSH 40 MG VIAL. IVP SCH (07:37)
--- NOTE | 2019-08-30 07:37 | PDOC ---
Infectious Disease Note Subjective Subjective feeling better says, awake nods appropriately Remains on vent/trach FiO2 30% PEEP 5 On TPN ROS ROS no n/v/d/ Vital Sign Vital Signs Vital Signs Date Time Temp Pulse Resp B/P (MAP) Pulse Ox O2 Delivery O2 Flow Rate FiO2 08/30/19 06:35 11 97 Ventilator 08/30/19 06:00 86 133/74 (93) 08/30/19 04:00 98.7 98.7 Physical Exam PHYSICAL EXAM GENERAL: Propped up in bed, appears weak, tired HEENT: oral cavity dry, NGT NECK: Trach/vent LUNGS: Improved aeration HEART: S1, S2, regular ABDOMEN: Distended, hypoactive BS, tender, + drains x 3 : Lind (08/01) EXTREMITIES: Generalized edema, no cyanosis, SCDs bilaterally SKIN: Warm and dry. No generalized rash. 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 s/p additional drains 08/25 Anemia - S/p PRBCs Cholelithiasis with thickening of the gallbladder wall. Leucocytosis improving JUANA, hyperkalemia, Metabolic acidosis off dialysis Acute hypoxic resp failure ,bilateral pleural effusion and atelectasis hypocalcemia Prediabetes HTN s/p trach Plan Plan of Care Dapto 08/21, merrem 07/26 -try to wean soon ,, d/c dapto Continue micafungin f/u cultures Maintain aspiration precaution Supportive care KIMMY JONES MD August 30, 2019 07:37
[2019-08-30] MEDS: BUMETANIDE 1 MG/4 ML VIAL. IV SCH (07:38)
[2019-08-30] MEDS: DULoxetine HCL 30 MG CAPSULE.DR PO SCH (07:39)
[2019-08-30 09:16] LABS: ALBUMIN 1.8 g/dL (3.4-5.0); ALBUMIN/GLOBULIN RATIO 0.4 (1.0-1.7); CALCIUM 8.6 mg/dL (8.5-10.1); CREATININE 0.7 mg/dL (0.6-1.0); GFR 88.9; POTASSIUM 3.6 mmol/L (3.5-5.1); TOTAL BILIRUBIN 0.4 mg/dL (0.2-1.0); TOTAL PROTEIN 6.4 g/dL (6.4-8.2)
--- NOTE | 2019-08-30 09:34 | PDOC ---
SURGICAL PROGRESS NOTE Subjective Pt awake on vent, some abd pain Vital Signs Vital Signs Date Time Temp Pulse Resp B/P (MAP) Pulse Ox O2 Delivery O2 Flow Rate FiO2 08/30/19 09:06 118 21 157/86 (109) 94 Tracheal Collar 10.0 08/30/19 08:00 98.7 98.7 I&O Intake and Output 08/30/19 07:00 Intake Total 1673 ml Output Total 4344 ml Balance -2671 ml IV Total 1673 ml Output Urine Total 3975 ml Drainage Total 369 ml PATIENT HAS A ROSARIO: Yes (accurate i and os) General: Alert, Cooperative, mild distress Abdomen: Soft, Other (drains with brownish drainage c/w pancreatic necrosis) Labs Laboratory Tests Test 08/28/19 12:40 08/28/19 15:20 08/28/19 17:44 08/29/19 00:13 Glucose (Fingerstick) 149 mg/dL (70-99) 142 mg/dL (70-99) 162 mg/dL (70-99) Sodium Level 146 mmol/L (136-145) Potassium Level 3.4 mmol/L (3.5-5.1) Chloride Level 106 mmol/L (98-107) Carbon Dioxide Level 33 mmol/L (21-32) Anion Gap 7 (6-14) Blood Urea Nitrogen 28 mg/dL (7-20) Creatinine 0.9 mg/dL (0.6-1.0) Estimated GFR (Cockcroft-Gault) 66.5 BUN/Creatinine Ratio 31 (6-20) Glucose Level 166 mg/dL (70-99) Calcium Level 8.2 mg/dL (8.5-10.1) Total Bilirubin 0.4 mg/dL (0.2-1.0) Aspartate Amino Transf (AST/SGOT) 38 U/L (15-37) Alanine Aminotransferase (ALT/SGPT) 39 U/L (14-59) Alkaline Phosphatase 95 U/L (46-116) Total Protein 5.5 g/dL (6.4-8.2) Albumin 1.6 g/dL (3.4-5.0) Albumin/Globulin Ratio 0.4 (1.0-1.7) Test 08/29/19 05:00 08/29/19 05:06 08/29/19 12:05 08/29/19 19:38 Sodium Level 145 mmol/L (136-145) Potassium Level 3.8 mmol/L (3.5-5.1) Chloride Level 106 mmol/L (98-107) Carbon Dioxide Level 33 mmol/L (21-32) Anion Gap 6 (6-14) Blood Urea Nitrogen 29 mg/dL (7-20) Creatinine 0.7 mg/dL (0.6-1.0) Estimated GFR (Cockcroft-Gault) 88.9 Glucose Level 125 mg/dL (70-99) Calcium Level 8.4 mg/dL (8.5-10.1) Phosphorus Level 3.8 mg/dL (2.6-4.7) Magnesium Level 2.0 mg/dL (1.8-2.4) Glucose (Fingerstick) 126 mg/dL (70-99) 181 mg/dL (70-99) 156 mg/dL (70-99) Test 08/30/19 00:57 08/30/19 06:43 08/30/19 08:50 Glucose (Fingerstick) 119 mg/dL (70-99) 139 mg/dL (70-99) Sodium Level 145 mmol/L (136-145) Potassium Level 3.6 mmol/L (3.5-5.1) Chloride Level 105 mmol/L (98-107) Carbon Dioxide Level 36 mmol/L (21-32) Anion Gap 4 (6-14) Blood Urea Nitrogen 24 mg/dL (7-20) Creatinine 0.7 mg/dL (0.6-1.0) Estimated GFR (Cockcroft-Gault) 88.9 BUN/Creatinine Ratio 34 (6-20) Glucose Level 154 mg/dL (70-99) Calcium Level 8.6 mg/dL (8.5-10.1) Total Bilirubin 0.4 mg/dL (0.2-1.0) Aspartate Amino Transf (AST/SGOT) 50 U/L (15-37) Alanine Aminotransferase (ALT/SGPT) 50 U/L (14-59) Alkaline Phosphatase 119 U/L (46-116) Total Protein 6.4 g/dL (6.4-8.2) Albumin 1.8 g/dL (3.4-5.0) Albumin/Globulin Ratio 0.4 (1.0-1.7) Laboratory Tests Test 08/29/19 12:05 08/29/19 19:38 08/30/19 00:57 08/30/19 06:43 Glucose (Fingerstick) 181 mg/dL (70-99) 156 mg/dL (70-99) 119 mg/dL (70-99) 139 mg/dL (70-99) Test 08/30/19 08:50 Sodium Level 145 mmol/L (136-145) Potassium Level 3.6 mmol/L (3.5-5.1) Chloride Level 105 mmol/L (98-107) Carbon Dioxide Level 36 mmol/L (21-32) Anion Gap 4 (6-14) Blood Urea Nitrogen 24 mg/dL (7-20) Creatinine 0.7 mg/dL (0.6-1.0) Estimated GFR (Cockcroft-Gault) 88.9 BUN/Creatinine Ratio 34 (6-20) Glucose Level 154 mg/dL (70-99) Calcium Level 8.6 mg/dL (8.5-10.1) Total Bilirubin 0.4 mg/dL (0.2-1.0) Aspartate Amino Transf (AST/SGOT) 50 U/L (15-37) Alanine Aminotransferase (ALT/SGPT) 50 U/L (14-59) Alkaline Phosphatase 119 U/L (46-116) Total Protein 6.4 g/dL (6.4-8.2) Albumin 1.8 g/dL (3.4-5.0) Albumin/Globulin Ratio 0.4 (1.0-1.7) Problem List Problems Medical Problems: (1) Acute pancreatitis Status: Acute (2) Cholelithiasis Status: Acute Assessment/Plan severe pancreatitis cont supportive care and drains. DAVON SIMMS MD August 30, 2019 09:34
--- NOTE | 2019-08-30 09:40 | PDOC ---
PULMONARY PROGRESS NOTES Subjective Patient intubated on 07/10 , s/p trach 4/6, awake alert follows commands placed on TS this am Nursing reports ongoing N/V Vitals Vital Signs Date Time Temp Pulse Resp B/P (MAP) Pulse Ox O2 Delivery O2 Flow Rate FiO2 08/30/19 09:06 118 21 157/86 (109) 94 Tracheal Collar 10.0 08/30/19 08:00 98.7 98.7 ROS: No Chest Pain, No Abdominal Pain, No Increase Cough General: Alert, No acute distress Lungs: Crackles Cardiovascular: S1, S2 Abdomen: Soft, Non-tender, Other (firm) Neuro Exam: Alert Extremities: Other (+3 generalized edema ) Skin: Warm, Dry Labs Laboratory Tests Test 08/28/19 12:40 08/28/19 15:20 08/28/19 17:44 08/29/19 00:13 Glucose (Fingerstick) 149 mg/dL (70-99) 142 mg/dL (70-99) 162 mg/dL (70-99) Sodium Level 146 mmol/L (136-145) Potassium Level 3.4 mmol/L (3.5-5.1) Chloride Level 106 mmol/L (98-107) Carbon Dioxide Level 33 mmol/L (21-32) Anion Gap 7 (6-14) Blood Urea Nitrogen 28 mg/dL (7-20) Creatinine 0.9 mg/dL (0.6-1.0) Estimated GFR (Cockcroft-Gault) 66.5 BUN/Creatinine Ratio 31 (6-20) Glucose Level 166 mg/dL (70-99) Calcium Level 8.2 mg/dL (8.5-10.1) Total Bilirubin 0.4 mg/dL (0.2-1.0) Aspartate Amino Transf (AST/SGOT) 38 U/L (15-37) Alanine Aminotransferase (ALT/SGPT) 39 U/L (14-59) Alkaline Phosphatase 95 U/L (46-116) Total Protein 5.5 g/dL (6.4-8.2) Albumin 1.6 g/dL (3.4-5.0) Albumin/Globulin Ratio 0.4 (1.0-1.7) Test 08/29/19 05:00 08/29/19 05:06 08/29/19 12:05 08/29/19 19:38 Sodium Level 145 mmol/L (136-145) Potassium Level 3.8 mmol/L (3.5-5.1) Chloride Level 106 mmol/L (98-107) Carbon Dioxide Level 33 mmol/L (21-32) Anion Gap 6 (6-14) Blood Urea Nitrogen 29 mg/dL (7-20) Creatinine 0.7 mg/dL (0.6-1.0) Estimated GFR (Cockcroft-Gault) 88.9 Glucose Level 125 mg/dL (70-99) Calcium Level 8.4 mg/dL (8.5-10.1) Phosphorus Level 3.8 mg/dL (2.6-4.7) Magnesium Level 2.0 mg/dL (1.8-2.4) Glucose (Fingerstick) 126 mg/dL (70-99) 181 mg/dL (70-99) 156 mg/dL (70-99) Test 08/30/19 00:57 08/30/19 06:43 08/30/19 08:50 Glucose (Fingerstick) 119 mg/dL (70-99) 139 mg/dL (70-99) Sodium Level 145 mmol/L (136-145) Potassium Level 3.6 mmol/L (3.5-5.1) Chloride Level 105 mmol/L (98-107) Carbon Dioxide Level 36 mmol/L (21-32) Anion Gap 4 (6-14) Blood Urea Nitrogen 24 mg/dL (7-20) Creatinine 0.7 mg/dL (0.6-1.0) Estimated GFR (Cockcroft-Gault) 88.9 BUN/Creatinine Ratio 34 (6-20) Glucose Level 154 mg/dL (70-99) Calcium Level 8.6 mg/dL (8.5-10.1) Total Bilirubin 0.4 mg/dL (0.2-1.0) Aspartate Amino Transf (AST/SGOT) 50 U/L (15-37) Alanine Aminotransferase (ALT/SGPT) 50 U/L (14-59) Alkaline Phosphatase 119 U/L (46-116) Total Protein 6.4 g/dL (6.4-8.2) Albumin 1.8 g/dL (3.4-5.0) Albumin/Globulin Ratio 0.4 (1.0-1.7) Laboratory Tests Test 08/29/19 12:05 08/29/19 19:38 08/30/19 00:57 08/30/19 06:43 Glucose (Fingerstick) 181 mg/dL (70-99) 156 mg/dL (70-99) 119 mg/dL (70-99) 139 mg/dL (70-99) Test 08/30/19 08:50 Sodium Level 145 mmol/L (136-145) Potassium Level 3.6 mmol/L (3.5-5.1) Chloride Level 105 mmol/L (98-107) Carbon Dioxide Level 36 mmol/L (21-32) Anion Gap 4 (6-14) Blood Urea Nitrogen 24 mg/dL (7-20) Creatinine 0.7 mg/dL (0.6-1.0) Estimated GFR (Cockcroft-Gault) 88.9 BUN/Creatinine Ratio 34 (6-20) Glucose Level 154 mg/dL (70-99) Calcium Level 8.6 mg/dL (8.5-10.1) Total Bilirubin 0.4 mg/dL (0.2-1.0) Aspartate Amino Transf (AST/SGOT) 50 U/L (15-37) Alanine Aminotransferase (ALT/SGPT) 50 U/L (14-59) Alkaline Phosphatase 119 U/L (46-116) Total Protein 6.4 g/dL (6.4-8.2) Albumin 1.8 g/dL (3.4-5.0) Albumin/Globulin Ratio 0.4 (1.0-1.7) Medications Active Scripts Medications Dose Route/Sig Max Daily Dose Days Date Category Bisoprolol Fumarate 5 Mg Tablet 10 Mg PO DAILY 07/04/19 Reported Comments CXR 08/30/2019 persistent moderate effusions Impression . IMPRESSION: 1. Acute hypoxemic respiratory failure secondary to ARDS status post trach, 2. Gallstone pancreatitis 3. Severe metabolic acidosis.stable 4. Acute kidney injury-stable, ON HD-- continue to improve 5. Acute gallstone pancreatitis. 6. Hypoalbuminemia. 7. Moderate persistent effusions 8. Fever- Per ID, per surgery--resolved 9. Chronic anemia 10. Covid 19 testing negative 11. Moderate to large ascites-S/P paracentisis 12.S/P paracentisis with 4 liters removed on 08/03/19 13. S/P IR drain placement on 08/26/2019 Plan . d/w IR , will proceed with thoracentesis TS all day and PRN PS qhs Follow surgery recs-- S/P 3 drain placed in IR on 08/26/2019 Follow ID recs for ABX Follow nephrology recs Continue TPN DVT/GI PPX: heparin SQ/ protonix D/W RN and RT CODE:FULL VINAYAK LANDRUM MD August 30, 2019 09:40
[2019-08-30] MEDS ORDERED: LIDOCAINE WITH 8.4% SOD BICARB 3 ML DISP.SYRIN. ONE (09:54)
--- NOTE | 2019-08-30 11:14 | PDOC ---
Subjective: Subjective: Feels the same. Objective: Objective: Stable per nurse - has been on bed anna a couple times, no stool. Vital Signs: Vital Signs Date Time Temp Pulse Resp B/P (MAP) Pulse Ox O2 Delivery O2 Flow Rate FiO2 08/30/19 10:05 111 19 154/84 (107) 95 Tracheal Collar 10.0 08/30/19 08:00 98.7 98.7 Labs: Laboratory Tests Test 08/29/19 12:05 08/29/19 19:38 08/30/19 00:57 08/30/19 06:43 Glucose (Fingerstick) 181 mg/dL 156 mg/dL 119 mg/dL 139 mg/dL Test 08/30/19 08:50 Sodium Level 145 mmol/L Potassium Level 3.6 mmol/L Chloride Level 105 mmol/L Carbon Dioxide Level 36 mmol/L Anion Gap 4 Blood Urea Nitrogen 24 mg/dL Creatinine 0.7 mg/dL Estimated GFR (Cockcroft-Gault) 88.9 BUN/Creatinine Ratio 34 Glucose Level 154 mg/dL Calcium Level 8.6 mg/dL Total Bilirubin 0.4 mg/dL Aspartate Amino Transf (AST/SGOT) 50 U/L Alanine Aminotransferase (ALT/SGPT) 50 U/L Alkaline Phosphatase 119 U/L Total Protein 6.4 g/dL Albumin 1.8 g/dL Albumin/Globulin Ratio 0.4 ORDERED: ANAER/AEROB/GS COMMENTS: ABDOMINAL FLUID Procedure Result ANAEROBIC-AEROBIC CULTURE Preliminary Preliminary report ANAEROBIC RES 1 Preliminary Comment No anaerobes recovered in 48 hours. AEROBIC CULT Final Final report AEROBIC RES 1 Final Yeast isolated. 4+ Request for further identification must be made within 1 week. GRAM STAIN Final Final report GRAM STAIN RES 1 Final Comment No white blood cells seen. GRAM STAIN RES 2 Final No organisms seen ORDERED: ANIBAL CULT,OTHER COMMENTS: ABDOMINAL FLUID Procedure Result FUNGAL CULTURE,OTHER Final Final report ANIBAL CULT RES 1 Final Kiana parapsilosis Imaging: CXR 08/29 Impression: 1. Moderate bilateral layering pleural effusions, unchanged. 2. Patchy central and bibasilar opacities, unchanged. PE: GEN: NAD - RT present LUNGS: trach/breathing treatment HEART: RRR ABD: distended but softer, NG bilious, drains NEURO/PSYCH: A & O 3 A/P: Gallstone pancreatitis, MOSF -- Continue same. Hemodynamically unstable?: No Is patient in severe pain?: Yes Is NPO status required?: Yes CYNDEE FALCON August 30, 2019 11:14
[2019-08-30] MEDS: MICAFUNGIN 100 MG in IV DEXTROSE 5% 100ML 100 ML IV SCH (11:26)
[2019-08-30] MEDS: TPN PER PHARMACY MC PRN (11:34)
--- NOTE | 2019-08-30 11:37 | NUR ---
Pharmacy TPN Dosing Note S: SCOTT AVILA is a 48 year old F Currently receiving Central Continuous TPN started 07/06/19 B:Pertinent PMH: Necrotizing pancreatitis Height: 5 feet, 8 inches Weight: 92.5 kg Current diet: NPO LABS: Sodium: 145 Potassium: 3.6 Chloride: 105 Calcium: 8.6 Corrected Calcium: 10.36 Magnesium: 2.6 CO2: 36 SCr: 0.7 Glucose: 119-179 Albumin: 1.8 AST: 50 ALT: 50 TPN FORMULA: TPN TYPE: Central Continuous AMINO ACIDS: 90 gm DEXTROSE: 225 gm LIPIDS: 30 gm POTASSIUM CHLORIDE: 80 mEq MAGNESIUM: 20 mEq INSULIN: 15 units MULTIPLE VITAMIN: 10 ml TRACE ELEMENTS: 0.5 ml(s) TPN PLAN: no change in tpn R: Continue TPN Will monitor electrolytes, glucose, and tolerance to TPN. Raeann Mcdonnell RPH, 08/30/19 1133
[2019-08-30] MEDS: IV NORMAL SALINE 1000ML BAG 1,000 ML IV SCH (12:11)
[2019-08-30 12:20] LABS: BASO # 0.1 x10^3/uL (0.0-0.2); BASO % 0 % (0-3); EOS # 0.2 x10^3/uL (0.0-0.7); EOS % 1 % (0-3); HEMATOCRIT 26.6 % (36.0-47.0); HEMOGLOBIN 8.5 g/dL (12.0-15.5); LYMPH # 3.7 x10^3/uL (1.0-4.8); LYMPH % 25 % (24-48); MEAN CORPUSCULAR HEMOGLOBIN 28 pg (25-35); MEAN CORPUSCULAR HGB CONC 32 g/dL (31-37); MEAN CORPUSCULAR VOLUME 89 fL (79-100); MONO # 0.7 x10^3/uL (0.0-1.1); MONO % 4 % (0-9); NEUT # 10.5 x10^3/uL (1.8-7.7); NEUT % 70 % (31-73); PLATELET COUNT 522 x10^3/uL (140-400); RED BLOOD COUNT 2.98 x10^6/uL (3.50-5.40); RED CELL DISTRIBUTION WIDTH 17.7 % (11.5-14.5); WHITE BLOOD COUNT 15.1 x10^3/uL (4.0-11.0)
--- NOTE | 2019-08-30 13:04 | PDOC ---
[facility] [facility] PROGRESS NOTE Chief Complaint Chief Complaint Acute hypoxic Respiratory failure requiring mechanical ventilation (on vent since 07/10) Tracheostomy bilateral pleural effusions/pulm edema Sepsis Severe Acute gallstone pancreatitis (not a surgical candidate at this time) with necrosis Acute kidney failure now requiring dialysis Salpingitis Gallstones (Calculus of gallbladder with acute cholecystitis without obstruction) HTN Leukocytosis Hypoxia Uterine fibroid Intractable pain Intractable nausea Covid 19 negative. Acute on chronic anemia EEG: No seizure activityFever - better currently - intermittent could be from underlying pancreatitis blood cults 08/21 - neg so far ? Ileus with vomiting Abd distention - U/S and CT reviewed s/p 0.4 L of opaque, debris-containing ascites was removed 08/23 Acute pancreatitis with persistent necrosis - 08/14 status post KAYLIN drain placement + C paropsilosis. s/p additional drains 08/25 Anemia - S/p PRBCs Cholelithiasis with thickening of the gallbladder wall. Leucocytosis improving JUANA, hyperkalemia, Metabolic acidosis off dialysis Acute hypoxic resp failure ,bilateral pleural effusion and atelectasis hypocalcemia Prediabetes HTN s/p trach ESRD on HD Hyperglycemia History of Present Illness History of Present Illness 08/30/2019 Patient seen and examined in the ICU She now has a trach shield Pleasantly confused but sedated with Precedex Chart reviewed Discussed with RN She has IV TPN Still very critically ill 08/29/2019 Patient seen and examined She remains on the vent but spontaneous respirations with 20 of pressure support and 30% FiO2 He still has NG to suction Appears extremely ill and weak and confused Has IV TPN Precedex antibiotics Lind is to bedside drainage She has SCDs and ProCare boots She is on IV meropenem and daptomycin and micafungin Chart reviewed Discussed with RN Patient is still critically ill Ms Diaz is a 48yo F w/ PMHx HTN, prediabetes who presented to the emergency room with complaints of abdominal pain on 07/04/2019. Found with Lipase 36106, AST 401, ALT 249, Bilirubin 1.4. CT abdomen confirms pancreatic inflammation, peripancreatic fluid and inflammatory changes around the pancreas consistent with pancreatitis. Cholelithiasis and 1.4cm uterine fibroid as well as possible left salpingitis. Admitted for further care GI, General surgery, ID, Pulm consulted. 07/04: PICC placed per IR. Renal US negative. Started on levophed. Repeat CT abdomen w/ necrosis; 07/05: Dialysis catheter per nephrology; 07/06: On BiPAP; 07/07: BiPAP, dialysis; 07/08: Overnight Tmax 101.7 , still on BiPAP FiO2 40%, still on low dose Levophed gtt, TPN initiated. On dialysis 07/24: Tracheostomy; 07/30: S/p tracheostomy on vent spontaneous respirations with 5 of pressure support 35% FiO2, rectal tube and a Lind, off pressors; 08/01:Still on vent via trach. Removed PICC and CVC LIJ and replaced. CT chest/abd/pelvis with bilateral pleural effusion and ascites. 08/02: Renal function stable. Still on vent. More interactive today. Miming wish for food. Plan discussed for thoracentesis/paracentesis with daughters today. They were under impression patient was doing worse due to a miscommunication which has been clarified over the phone. 4.3L removed. 08/04: Febrile overnight 101.8F. More interactive, still on vent. Asking for ice by miming; 08/05: Afebrile overnight. TMax last 24 hours 100.6F. Hb 7.1. Interactive when awake. 08/09: Transfusion 1u PRBC (6U total since admit) 08/10-08/13: TPN and precedex, vent. 08/14: Tmax 101F overnight. Hb 8.2. HD cath out since 08/11. Alert. On vent SIMV 35% FiO2. Surgery: ex-lap, no ronel or pancreatic necrosectomy 2/2 profound inflammation. 08/15: Seen POD #1. Afebrile overnight. BUN 62. CBC WNL today.Remains on vent via trach, TPN. Able to point today and indicate she wishes her daughters and Jamaal to be involved in her care. 08/16: Hb 7.4, Na 151. Remains on vent via trach, TPN. off HD for now. Not tolerating trach shield well. 08/17: Negative US for UE DVT. More relaxed today. Has some increase in UOP. Tolerating vent well. She is requesting to eat and drink via writing. T max 100F 24 hours ago, but 101F at 1200. Right PICC placed. Speaking valve for half the day in [facility] 08/18: Na 153 today. Good UOP. Tmax 101F at 1200 on 08/17. She becomes a bit anxious and did not sleep much last night, wishes to try to sleep this morning 08/19: Able to speak well with speaking valve today. Na 153, K2.9, Mg 1.8, Cr 1. 100.4F axillary temp overnight. Asking for food. 08/20: Afebrile overnight. ABG with pH 7.27/75/123. Hb 7.1. Na 153. JUTE BAG SEWER settings decreased 08/21: No acute events reported overnight, case discussed with nursing staff patient in no acute distress no complaints during my visit 08/22: Patient responding to verbal stimuli. She is saturating well and not requiring ventilation support, no acute events reported overnight seems to be slowly improving 08/23: Patient requiring transfusion of packed red blood cells due to anemia, no evidence of acute bleeding, appreciate GI it systems analyst consultant recommendations 08/24: Patient required ventilatory support given that she desaturated, she is lying in bed in mild distress, case discussed with nursing staff, no evidence of bleeding, h an h noted. 08/25: Underwent IR procedure as follows BRIEF OPERATIVE NOTE Pre-Op Diagnosis Pancreatitis with pseudocysts, suspected infection Post-Op Diagnosis same Procedure Performed CT abdominal Drains x 3 Surgeon Tesfaye Anesthesia Type: Conscious Sedation Findings 3 abdominal drains, 14F, with turbid pancreatic fluid and necrotic debris in each. Complications No immediate 08/26: Patient today somewhat restless and having bilious secretions from ET tube, imaging studies ordered, discussed with it systems analyst consultant. Pretty poor prognosis, hopefully is not a fistula, poor surgical candidate. 08/27: Imaging with no acute events, she seems more stable today compared to yesterday. Encouraged as much activity as possible patient at high risk for severe depression. Vitals/I&O Vitals/I&O: Vital Signs Date Time Temp Pulse Resp B/P (MAP) Pulse Ox O2 Delivery O2 Flow Rate FiO2 08/30/19 12:04 115 23 153/88 (109) 98 Tracheal Collar 10.0 08/30/19 11:00 98.3 98.3 I & O 08/29/19 08/29/19 08/30/19 15:00 23:00 07:00 Intake Total 150 ml 1523 ml Output Total 2000 ml 1624 ml 720 ml Balance -1850 ml -101 ml -720 ml Physical Exam Physical Exam: GENERAL: Propped up in bed, appears weak, tired HEENT: oral cavity dry, NGT NECK: Trach/vent LUNGS: Improved aeration has humidified O2 via trach shield HEART: S1, S2, regular ABDOMEN: Distended, hypoactive BS, tender, + drains x 3 : Lind (08/01) EXTREMITIES: Generalized edema, no cyanosis, SCDs bilaterally SKIN: Warm and dry. No generalized rash. HOME ENERGY CONSULTANT SUPERVISOR: Nodded some to couple questions PICC(08/17) clean General: Other (Resting with no apparent distress) Heart: Regular rate, Normal S1, Normal S2, No murmurs, Gallops Lungs: Crackles Abdomen: Soft, Other (drains with brownish drainage c/w pancreatic necrosis) Extremities: No clubbing, No cyanosis, No edema, Normal pulses, No tender ness/swelling Skin: Other (warm, dry) Labs Labs: Laboratory Tests Test 08/29/19 19:38 08/30/19 00:57 08/30/19 06:43 08/30/19 08:50 Glucose (Fingerstick) 156 mg/dL (70-99) 119 mg/dL (70-99) 139 mg/dL (70-99) White Blood Count 15.1 x10^3/uL (4.0-11.0) Red Blood Count 2.98 x10^6/uL (3.50-5.40) Hemoglobin 8.5 g/dL (12.0-15.5) Hematocrit 26.6 % (36.0-47.0) Mean Corpuscular Volume 89 fL (79-100) Mean Corpuscular Hemoglobin 28 pg (25-35) Mean Corpuscular Hemoglobin Concent 32 g/dL (31-37) Red Cell Distribution Width 17.7 % (11.5-14.5) Platelet Count 522 x10^3/uL (140-400) Neutrophils (%) (Auto) 70 % (31-73) Lymphocytes (%) (Auto) 25 % (24-48) Monocytes (%) (Auto) 4 % (0-9) Eosinophils (%) (Auto) 1 % (0-3) Basophils (%) (Auto) 0 % (0-3) Neutrophils # (Auto) 10.5 x10^3/uL (1.8-7.7) Lymphocytes # (Auto) 3.7 x10^3/uL (1.0-4.8) Monocytes # (Auto) 0.7 x10^3/uL (0.0-1.1) Eosinophils # (Auto) 0.2 x10^3/uL (0.0-0.7) Basophils # (Auto) 0.1 x10^3/uL (0.0-0.2) Sodium Level 145 mmol/L (136-145) Potassium Level 3.6 mmol/L (3.5-5.1) Chloride Level 105 mmol/L (98-107) Carbon Dioxide Level 36 mmol/L (21-32) Anion Gap 4 (6-14) Blood Urea Nitrogen 24 mg/dL (7-20) Creatinine 0.7 mg/dL (0.6-1.0) Estimated GFR (Cockcroft-Gault) 88.9 BUN/Creatinine Ratio 34 (6-20) Glucose Level 154 mg/dL (70-99) Calcium Level 8.6 mg/dL (8.5-10.1) Total Bilirubin 0.4 mg/dL (0.2-1.0) Aspartate Amino Transf (AST/SGOT) 50 U/L (15-37) Alanine Aminotransferase (ALT/SGPT) 50 U/L (14-59) Alkaline Phosphatase 119 U/L (46-116) Total Protein 6.4 g/dL (6.4-8.2) Albumin 1.8 g/dL (3.4-5.0) Albumin/Globulin Ratio 0.4 (1.0-1.7) Test 08/30/19 11:31 Glucose (Fingerstick) 179 mg/dL (70-99) Review of Systems Review of Systems: Unable to obtain Assessment and Plan Assessmemt and Plan Problems Medical Problems: (1) Acute pancreatitis Status: Acute (2) Cholelithiasis Status: Acute Acute hypoxic Respiratory failure requiring mechanical ventilation (on vent since 07/10) Tracheostomy bilateral pleural effusions/pulm edema Sepsis Severe Acute gallstone pancreatitis (not a surgical candidate at this time) with necrosis Acute kidney failure now requiring dialysis Salpingitis Gallstones (Calculus of gallbladder with acute cholecystitis without obstruction) HTN Leukocytosis Hypoxia Uterine fibroid Intractable pain Intractable nausea Covid 19 negative. Acute on chronic anemia EEG: No seizure activityFever - better currently - intermittent could be from underlying pancreatitis blood cults 08/21 - neg so far ? Ileus with vomiting Abd distention - U/S and CT reviewed s/p 0.4 L of opaque, debris-containing ascites was removed 08/23 Acute pancreatitis with persistent necrosis - 08/14 status post KAYLIN drain placement + C paropsilosis. s/p additional drains 08/25 Anemia - S/p PRBCs Cholelithiasis with thickening of the gallbladder wall. Leucocytosis improving JUANA, hyperkalemia, Metabolic acidosis off dialysis Acute hypoxic resp failure ,bilateral pleural effusion and atelectasis hypocalcemia Prediabetes HTN s/p trach ESRD on HD Hyperglycemia Plan ICU monitoring Wound care Humidified O2 via trach shield NG suctioning Continue IV antibiotics and micafungin Sedation with Precedex TPN protocol Continue Lind to bedside drainage Tracheostomy care Hope to eventually move towards decannulation Trend labs Appreciate subspecialist input She is critically ill Total time 31-minute Comment Review of Relevant I have reviewed the following items kolby (where applicable) has been applied. Medications: Current Medications Medications (Trade) Dose Ordered Sig/Yvon Route PRN Reason Start Time Stop Time Status Last Admin Dose Admin Potassium Chloride 80 meq/ Magnesium Sulfate 20 meq/ Multivitamins 10 ml/Chromium/ Copper/Manganese/ Seleni/Zn 0.5 ml/ Insulin Human Regular 15 unit/ Total Parenteral Nutrition/Amino Acids/Dextrose/ Fat Emulsion Intravenous 1,920 ml @ 80 mls/hr TPN CONT IV 08/29/19 22:00 08/30/19 21:59 08/29/19 22:20 Hemodynamically unstable?: No Is patient in severe pain?: Yes Is NPO status required?: Yes BEBO KIRBY III DO August 30, 2019 13:04
[2019-08-30] MEDS ORDERED: LIDOCAINE WITH 8.4% SOD BICARB 3 ML DISP.SYRIN. INJ ONE (14:15)
--- NOTE | 2019-08-30 15:28 | NUR ---
SS following up with discharge planning. SS discussed with RN, Echo and Kirt. Pt is currently on the trach collar at 10 liters. Pt had thoracentesis today. Pt continues to have drains and IV antibiotics. Pt NPO and on TPN. Pt not tolerating speaking valve. HCFS working with daughters to complete disability application. SS will continue to follow for discharge planning.
--- NOTE | 2019-08-30 17:27 | NUR ---
At 1700 trach capped by RT Jessica. Patient tolerating well on 3L. Patient is slightly anxious but she is saying she is excited about the progress. O2 saturation is between 96-99%.
[2019-08-30] MEDS ORDERED: DEXTROSE 70% IV SCH ×8 (22:00)
[2019-08-30] MEDS ORDERED: AMINO ACID IV SCH ×8 (22:00)
[2019-08-30] MEDS ORDERED: [UNRECOGNIZED DRUG - OTHER] IV SCH ×8 (22:00)
[2019-08-30] MEDS ORDERED: TOTAL PARENTERAL NUTRITION IV SCH ×8 (22:00)
[2019-08-31] VITALS (22 sets, daily range): BP systolic 111–187; BP diastolic 53–92
[2019-08-31] MEDS: METOCLOPRAMIDE HCL 10 MG/2 ML VIAL. IVP PRN ×2 (00:34→06:16)
[2019-08-31] MEDS: HYDROmorphone 2 MG/ML VIAL IVP PRN ×2 (00:34→19:22)
[2019-08-31] MEDS: INSULIN LISPRO 300 UNITS/3 ML VIAL. SQ SCH ×5 (00:39→23:53)
[2019-08-31] MEDS: DEXMEDETOMIDINE 400 MCG in IV NORMAL SALINE 100ML 96 ML IV PRN ×4 (03:00→22:05)
[2019-08-31 05:24] LABS: BASO % 0 % (0-3); EOS # 0.1 x10^3/uL (0.0-0.7); EOS % 1 % (0-3); HEMOGLOBIN 7.7 g/dL (12.0-15.5); LYMPH # 2.4 x10^3/uL (1.0-4.8); LYMPH % 20 % (24-48); MEAN CORPUSCULAR HEMOGLOBIN 28 pg (25-35); MEAN CORPUSCULAR HGB CONC 32 g/dL (31-37); MEAN CORPUSCULAR VOLUME 88 fL (79-100); MONO # 0.6 x10^3/uL (0.0-1.1); MONO % 5 % (0-9); NEUT # 8.6 x10^3/uL (1.8-7.7); NEUT % 73 % (31-73); PLATELET COUNT 512 x10^3/uL (140-400); RED BLOOD COUNT 2.72 x10^6/uL (3.50-5.40); RED CELL DISTRIBUTION WIDTH 17.9 % (11.5-14.5); WHITE BLOOD COUNT 11.8 x10^3/uL (4.0-11.0)
[2019-08-31] MEDS: MEROPENEM 1 GM in IV NORMAL SALINE 100ML 100 ML IV SCH ×3 (05:39→22:01)
--- NOTE | 2019-08-31 07:51 | PDOC ---
Infectious Disease Note Subjective Subjective feeling better says, awake nods appropriately off vent, trach o2 ROS ROS no n/v/d/ Vital Sign Vital Signs Vital Signs Date Time Temp Pulse Resp B/P (MAP) Pulse Ox O2 Delivery O2 Flow Rate FiO2 08/31/19 07:43 Trach Collar 8.0 08/31/19 07:26 97 08/31/19 07:00 98.8 106 34 139/65 (89) 98.8 Physical Exam PHYSICAL EXAM GENERAL: Propped up in bed, appears weak, tired HEENT: oral cavity dry, NGT NECK: Trach/vent LUNGS: Improved aeration has humidified O2 via trach shield HEART: S1, S2, regular ABDOMEN: Distended, hypoactive BS, tender, + drains x 3 : Lind (08/01) EXTREMITIES: Generalized edema, no cyanosis, SCDs bilaterally SKIN: Warm and dry. No generalized rash. [employer]ET[employer] CONSULTANT: Nodded some to couple questions PICC(08/17) clean Labs Lab Laboratory Tests Test 08/30/19 08:50 08/30/19 11:31 08/30/19 18:22 08/31/19 00:23 White Blood Count 15.1 x10^3/uL (4.0-11.0) Red Blood Count 2.98 x10^6/uL (3.50-5.40) Hemoglobin 8.5 g/dL (12.0-15.5) Hematocrit 26.6 % (36.0-47.0) Mean Corpuscular Volume 89 fL (79-100) Mean Corpuscular Hemoglobin 28 pg (25-35) Mean Corpuscular Hemoglobin Concent 32 g/dL (31-37) Red Cell Distribution Width 17.7 % (11.5-14.5) Platelet Count 522 x10^3/uL (140-400) Neutrophils (%) (Auto) 70 % (31-73) Lymphocytes (%) (Auto) 25 % (24-48) Monocytes (%) (Auto) 4 % (0-9) Eosinophils (%) (Auto) 1 % (0-3) Basophils (%) (Auto) 0 % (0-3) Neutrophils # (Auto) 10.5 x10^3/uL (1.8-7.7) Lymphocytes # (Auto) 3.7 x10^3/uL (1.0-4.8) Monocytes # (Auto) 0.7 x10^3/uL (0.0-1.1) Eosinophils # (Auto) 0.2 x10^3/uL (0.0-0.7) Basophils # (Auto) 0.1 x10^3/uL (0.0-0.2) Sodium Level 145 mmol/L (136-145) Potassium Level 3.6 mmol/L (3.5-5.1) Chloride Level 105 mmol/L (98-107) Carbon Dioxide Level 36 mmol/L (21-32) Anion Gap 4 (6-14) Blood Urea Nitrogen 24 mg/dL (7-20) Creatinine 0.7 mg/dL (0.6-1.0) Estimated GFR (Cockcroft-Gault) 88.9 BUN/Creatinine Ratio 34 (6-20) Glucose Level 154 mg/dL (70-99) Calcium Level 8.6 mg/dL (8.5-10.1) Total Bilirubin 0.4 mg/dL (0.2-1.0) Aspartate Amino Transf (AST/SGOT) 50 U/L (15-37) Alanine Aminotransferase (ALT/SGPT) 50 U/L (14-59) Alkaline Phosphatase 119 U/L (46-116) Total Protein 6.4 g/dL (6.4-8.2) Albumin 1.8 g/dL (3.4-5.0) Albumin/Globulin Ratio 0.4 (1.0-1.7) Glucose (Fingerstick) 179 mg/dL (70-99) 142 mg/dL (70-99) 169 mg/dL (70-99) Test 08/31/19 05:06 08/31/19 05:15 White Blood Count 11.8 x10^3/uL (4.0-11.0) Red Blood Count 2.72 x10^6/uL (3.50-5.40) Hemoglobin 7.7 g/dL (12.0-15.5) Hematocrit 24.0 % (36.0-47.0) Mean Corpuscular Volume 88 fL (79-100) Mean Corpuscular Hemoglobin 28 pg (25-35) Mean Corpuscular Hemoglobin Concent 32 g/dL (31-37) Red Cell Distribution Width 17.9 % (11.5-14.5) Platelet Count 512 x10^3/uL (140-400) Neutrophils (%) (Auto) 73 % (31-73) Lymphocytes (%) (Auto) 20 % (24-48) Monocytes (%) (Auto) 5 % (0-9) Eosinophils (%) (Auto) 1 % (0-3) Basophils (%) (Auto) 0 % (0-3) Neutrophils # (Auto) 8.6 x10^3/uL (1.8-7.7) Lymphocytes # (Auto) 2.4 x10^3/uL (1.0-4.8) Monocytes # (Auto) 0.6 x10^3/uL (0.0-1.1) Eosinophils # (Auto) 0.1 x10^3/uL (0.0-0.7) Basophils # (Auto) 0.0 x10^3/uL (0.0-0.2) Glucose (Fingerstick) 91 mg/dL (70-99) Micro Objective Assessment Fever - better currently - Abd distention - U/S and CT reviewed s/p 0.4 L of opaque, debris-containing ascites was removed 08/23 Acute pancreatitis with persistent necrosis - 08/14 status post KAYLIN drain placement + C paropsilosis. s/p additional drains 08/25 Anemia - S/p PRBCs Cholelithiasis with thickening of the gallbladder wall. Leucocytosis improving JUANA, hyperkalemia, Metabolic acidosis off dialysis Acute hypoxic resp failure ,bilateral pleural effusion and atelectasis hypocalcemia Prediabetes HTN s/p trach Plan Plan of Care , merrem 07/26 - Continue micafungin f/u cultures Maintain aspiration precaution Supportive care KIMMY JONES MD August 31, 2019 07:51
[2019-08-31] MEDS: PANTOPRAZOLE IV PUSH 40 MG VIAL. IVP SCH (07:59)
[2019-08-31] MEDS: BUMETANIDE 1 MG/4 ML VIAL. IV SCH (08:00)
[2019-08-31] MEDS: DULoxetine HCL 30 MG CAPSULE.DR PO SCH ×2 (08:00→08:28)
--- NOTE | 2019-08-31 09:30 | NUR ---
pt assisted over to rehab chair. total lift transfer. pt did put some weight on feet. pt attempting to distract herself by watching tv. RT placed cap on trach for a trial. dr bergman at bedside.
--- NOTE | 2019-08-31 09:49 | PDOC ---
PULMONARY PROGRESS NOTES Subjective Patient intubated on 07/10 , s/p trach 4/6, awake alert follows commands placed on TS s/p left tap , 3litres removed Vitals Vital Signs Date Time Temp Pulse Resp B/P (MAP) Pulse Ox O2 Delivery O2 Flow Rate FiO2 08/31/19 09:08 110 32 140/86 (104) 97 8.0 08/31/19 07:43 Trach Collar 08/31/19 07:00 98.8 98.8 ROS: No Chest Pain, No Abdominal Pain, No Increase Cough General: Alert, No acute distress Lungs: Other (decrease bs) Cardiovascular: S1, S2 Abdomen: Soft, Non-tender, Other Neuro Exam: Alert Extremities: Other (+3 generalized edema ) Skin: Warm, Dry Labs Laboratory Tests Test 08/29/19 12:05 08/29/19 19:38 08/30/19 00:57 08/30/19 06:43 Glucose (Fingerstick) 181 mg/dL (70-99) 156 mg/dL (70-99) 119 mg/dL (70-99) 139 mg/dL (70-99) Test 08/30/19 08:50 08/30/19 11:31 08/30/19 18:22 08/31/19 00:23 White Blood Count 15.1 x10^3/uL (4.0-11.0) Red Blood Count 2.98 x10^6/uL (3.50-5.40) Hemoglobin 8.5 g/dL (12.0-15.5) Hematocrit 26.6 % (36.0-47.0) Mean Corpuscular Volume 89 fL (79-100) Mean Corpuscular Hemoglobin 28 pg (25-35) Mean Corpuscular Hemoglobin Concent 32 g/dL (31-37) Red Cell Distribution Width 17.7 % (11.5-14.5) Platelet Count 522 x10^3/uL (140-400) Neutrophils (%) (Auto) 70 % (31-73) Lymphocytes (%) (Auto) 25 % (24-48) Monocytes (%) (Auto) 4 % (0-9) Eosinophils (%) (Auto) 1 % (0-3) Basophils (%) (Auto) 0 % (0-3) Neutrophils # (Auto) 10.5 x10^3/uL (1.8-7.7) Lymphocytes # (Auto) 3.7 x10^3/uL (1.0-4.8) Monocytes # (Auto) 0.7 x10^3/uL (0.0-1.1) Eosinophils # (Auto) 0.2 x10^3/uL (0.0-0.7) Basophils # (Auto) 0.1 x10^3/uL (0.0-0.2) Sodium Level 145 mmol/L (136-145) Potassium Level 3.6 mmol/L (3.5-5.1) Chloride Level 105 mmol/L (98-107) Carbon Dioxide Level 36 mmol/L (21-32) Anion Gap 4 (6-14) Blood Urea Nitrogen 24 mg/dL (7-20) Creatinine 0.7 mg/dL (0.6-1.0) Estimated GFR (Cockcroft-Gault) 88.9 BUN/Creatinine Ratio 34 (6-20) Glucose Level 154 mg/dL (70-99) Calcium Level 8.6 mg/dL (8.5-10.1) Total Bilirubin 0.4 mg/dL (0.2-1.0) Aspartate Amino Transf (AST/SGOT) 50 U/L (15-37) Alanine Aminotransferase (ALT/SGPT) 50 U/L (14-59) Alkaline Phosphatase 119 U/L (46-116) Total Protein 6.4 g/dL (6.4-8.2) Albumin 1.8 g/dL (3.4-5.0) Albumin/Globulin Ratio 0.4 (1.0-1.7) Glucose (Fingerstick) 179 mg/dL (70-99) 142 mg/dL (70-99) 169 mg/dL (70-99) Test 08/31/19 05:06 08/31/19 05:15 White Blood Count 11.8 x10^3/uL (4.0-11.0) Red Blood Count 2.72 x10^6/uL (3.50-5.40) Hemoglobin 7.7 g/dL (12.0-15.5) Hematocrit 24.0 % (36.0-47.0) Mean Corpuscular Volume 88 fL (79-100) Mean Corpuscular Hemoglobin 28 pg (25-35) Mean Corpuscular Hemoglobin Concent 32 g/dL (31-37) Red Cell Distribution Width 17.9 % (11.5-14.5) Platelet Count 512 x10^3/uL (140-400) Neutrophils (%) (Auto) 73 % (31-73) Lymphocytes (%) (Auto) 20 % (24-48) Monocytes (%) (Auto) 5 % (0-9) Eosinophils (%) (Auto) 1 % (0-3) Basophils (%) (Auto) 0 % (0-3) Neutrophils # (Auto) 8.6 x10^3/uL (1.8-7.7) Lymphocytes # (Auto) 2.4 x10^3/uL (1.0-4.8) Monocytes # (Auto) 0.6 x10^3/uL (0.0-1.1) Eosinophils # (Auto) 0.1 x10^3/uL (0.0-0.7) Basophils # (Auto) 0.0 x10^3/uL (0.0-0.2) Glucose (Fingerstick) 91 mg/dL (70-99) Laboratory Tests Test 08/30/19 11:31 08/30/19 18:22 08/31/19 00:23 08/31/19 05:06 Glucose (Fingerstick) 179 mg/dL (70-99) 142 mg/dL (70-99) 169 mg/dL (70-99) White Blood Count 11.8 x10^3/uL (4.0-11.0) Red Blood Count 2.72 x10^6/uL (3.50-5.40) Hemoglobin 7.7 g/dL (12.0-15.5) Hematocrit 24.0 % (36.0-47.0) Mean Corpuscular Volume 88 fL (79-100) Mean Corpuscular Hemoglobin 28 pg (25-35) Mean Corpuscular Hemoglobin Concent 32 g/dL (31-37) Red Cell Distribution Width 17.9 % (11.5-14.5) Platelet Count 512 x10^3/uL (140-400) Neutrophils (%) (Auto) 73 % (31-73) Lymphocytes (%) (Auto) 20 % (24-48) Monocytes (%) (Auto) 5 % (0-9) Eosinophils (%) (Auto) 1 % (0-3) Basophils (%) (Auto) 0 % (0-3) Neutrophils # (Auto) 8.6 x10^3/uL (1.8-7.7) Lymphocytes # (Auto) 2.4 x10^3/uL (1.0-4.8) Monocytes # (Auto) 0.6 x10^3/uL (0.0-1.1) Eosinophils # (Auto) 0.1 x10^3/uL (0.0-0.7) Basophils # (Auto) 0.0 x10^3/uL (0.0-0.2) Test 08/31/19 05:15 Glucose (Fingerstick) 91 mg/dL (70-99) Medications Active Scripts Medications Dose Route/Sig Max Daily Dose Days Date Category Bisoprolol Fumarate 5 Mg Tablet 10 Mg PO DAILY 07/04/19 Reported Comments CXR 08/30/2019 persistent moderate effusions Impression . IMPRESSION: 1. Acute hypoxemic respiratory failure secondary to ARDS status post trach, 2. Gallstone pancreatitis 3. Severe metabolic acidosis.stable 4. Acute kidney injury-stable, Off HD-- continue to improve 5. Acute gallstone pancreatitis. 6. Hypoalbuminemia. 7. Moderate persistent effusions, s/p left thora 08/29 8. Fever- Per ID, per surgery--resolved 9. Chronic anemia 10. Covid 19 testing negative 11. Moderate to large ascites-S/P paracentisis 12.S/P paracentisis with 4 liters removed on 08/03/19 13. S/P IR drain placement on 08/26/2019 Plan . d/w IR , s/p thoracentesis, 08/29, 3 litres removed TS all day Follow surgery recs-- S/P 3 drain placed in IR on 08/26/2019 Follow ID recs for ABX Follow nephrology recs Continue TPN DVT/GI PPX: heparin SQ/ protonix D/W RN and RT CODE:VINAYAK FOX MD August 31, 2019 09:49
--- NOTE | 2019-08-31 10:58 | PDOC ---
SURGICAL PROGRESS NOTE Subjective Pt awake on vent, some abd pain Vital Signs Vital Signs Date Time Temp Pulse Resp B/P (MAP) Pulse Ox O2 Delivery O2 Flow Rate FiO2 08/31/19 10:00 120 30 150/86 (107) 97 8.0 08/31/19 07:43 Trach Collar 08/31/19 07:00 98.8 98.8 I&O Intake and Output 08/31/19 07:00 Intake Total 2266 ml Output Total 5670 ml Balance -3404 ml IV Total 2266 ml Output Urine Total 4350 ml Chest Tube Drainage Total 850 ml Drainage Total 470 ml General: Alert, Oriented X3, Cooperative, mild distress Abdomen: Soft, No tenderness, Other (drains in place) Labs Laboratory Tests Test 08/29/19 12:05 08/29/19 19:38 08/30/19 00:57 08/30/19 06:43 Glucose (Fingerstick) 181 mg/dL (70-99) 156 mg/dL (70-99) 119 mg/dL (70-99) 139 mg/dL (70-99) Test 08/30/19 08:50 08/30/19 11:31 08/30/19 18:22 08/31/19 00:23 White Blood Count 15.1 x10^3/uL (4.0-11.0) Red Blood Count 2.98 x10^6/uL (3.50-5.40) Hemoglobin 8.5 g/dL (12.0-15.5) Hematocrit 26.6 % (36.0-47.0) Mean Corpuscular Volume 89 fL (79-100) Mean Corpuscular Hemoglobin 28 pg (25-35) Mean Corpuscular Hemoglobin Concent 32 g/dL (31-37) Red Cell Distribution Width 17.7 % (11.5-14.5) Platelet Count 522 x10^3/uL (140-400) Neutrophils (%) (Auto) 70 % (31-73) Lymphocytes (%) (Auto) 25 % (24-48) Monocytes (%) (Auto) 4 % (0-9) Eosinophils (%) (Auto) 1 % (0-3) Basophils (%) (Auto) 0 % (0-3) Neutrophils # (Auto) 10.5 x10^3/uL (1.8-7.7) Lymphocytes # (Auto) 3.7 x10^3/uL (1.0-4.8) Monocytes # (Auto) 0.7 x10^3/uL (0.0-1.1) Eosinophils # (Auto) 0.2 x10^3/uL (0.0-0.7) Basophils # (Auto) 0.1 x10^3/uL (0.0-0.2) Sodium Level 145 mmol/L (136-145) Potassium Level 3.6 mmol/L (3.5-5.1) Chloride Level 105 mmol/L (98-107) Carbon Dioxide Level 36 mmol/L (21-32) Anion Gap 4 (6-14) Blood Urea Nitrogen 24 mg/dL (7-20) Creatinine 0.7 mg/dL (0.6-1.0) Estimated GFR (Cockcroft-Gault) 88.9 BUN/Creatinine Ratio 34 (6-20) Glucose Level 154 mg/dL (70-99) Calcium Level 8.6 mg/dL (8.5-10.1) Total Bilirubin 0.4 mg/dL (0.2-1.0) Aspartate Amino Transf (AST/SGOT) 50 U/L (15-37) Alanine Aminotransferase (ALT/SGPT) 50 U/L (14-59) Alkaline Phosphatase 119 U/L (46-116) Total Protein 6.4 g/dL (6.4-8.2) Albumin 1.8 g/dL (3.4-5.0) Albumin/Globulin Ratio 0.4 (1.0-1.7) Glucose (Fingerstick) 179 mg/dL (70-99) 142 mg/dL (70-99) 169 mg/dL (70-99) Test 08/31/19 05:06 08/31/19 05:15 White Blood Count 11.8 x10^3/uL (4.0-11.0) Red Blood Count 2.72 x10^6/uL (3.50-5.40) Hemoglobin 7.7 g/dL (12.0-15.5) Hematocrit 24.0 % (36.0-47.0) Mean Corpuscular Volume 88 fL (79-100) Mean Corpuscular Hemoglobin 28 pg (25-35) Mean Corpuscular Hemoglobin Concent 32 g/dL (31-37) Red Cell Distribution Width 17.9 % (11.5-14.5) Platelet Count 512 x10^3/uL (140-400) Neutrophils (%) (Auto) 73 % (31-73) Lymphocytes (%) (Auto) 20 % (24-48) Monocytes (%) (Auto) 5 % (0-9) Eosinophils (%) (Auto) 1 % (0-3) Basophils (%) (Auto) 0 % (0-3) Neutrophils # (Auto) 8.6 x10^3/uL (1.8-7.7) Lymphocytes # (Auto) 2.4 x10^3/uL (1.0-4.8) Monocytes # (Auto) 0.6 x10^3/uL (0.0-1.1) Eosinophils # (Auto) 0.1 x10^3/uL (0.0-0.7) Basophils # (Auto) 0.0 x10^3/uL (0.0-0.2) Glucose (Fingerstick) 91 mg/dL (70-99) Laboratory Tests Test 08/30/19 11:31 08/30/19 18:22 08/31/19 00:23 08/31/19 05:06 Glucose (Fingerstick) 179 mg/dL (70-99) 142 mg/dL (70-99) 169 mg/dL (70-99) White Blood Count 11.8 x10^3/uL (4.0-11.0) Red Blood Count 2.72 x10^6/uL (3.50-5.40) Hemoglobin 7.7 g/dL (12.0-15.5) Hematocrit 24.0 % (36.0-47.0) Mean Corpuscular Volume 88 fL (79-100) Mean Corpuscular Hemoglobin 28 pg (25-35) Mean Corpuscular Hemoglobin Concent 32 g/dL (31-37) Red Cell Distribution Width 17.9 % (11.5-14.5) Platelet Count 512 x10^3/uL (140-400) Neutrophils (%) (Auto) 73 % (31-73) Lymphocytes (%) (Auto) 20 % (24-48) Monocytes (%) (Auto) 5 % (0-9) Eosinophils (%) (Auto) 1 % (0-3) Basophils (%) (Auto) 0 % (0-3) Neutrophils # (Auto) 8.6 x10^3/uL (1.8-7.7) Lymphocytes # (Auto) 2.4 x10^3/uL (1.0-4.8) Monocytes # (Auto) 0.6 x10^3/uL (0.0-1.1) Eosinophils # (Auto) 0.1 x10^3/uL (0.0-0.7) Basophils # (Auto) 0.0 x10^3/uL (0.0-0.2) Test 08/31/19 05:15 Glucose (Fingerstick) 91 mg/dL (70-99) Problem List Problems Medical Problems: (1) Acute pancreatitis Status: Acute (2) Cholelithiasis Status: Acute Assessment/Plan severe pancreatitis cont supportive care, no current surgical plans. DAVON SIMMS MD August 31, 2019 10:58
[2019-08-31] MEDS: MICAFUNGIN 100 MG in IV DEXTROSE 5% 100ML 100 ML IV SCH (11:30)
[2019-08-31] MEDS: TPN PER PHARMACY MC PRN (11:31)
--- NOTE | 2019-08-31 11:32 | NUR ---
Pharmacy TPN Dosing Note S: SCOTT AVILA is a 48 year old F Currently receiving Central Continuous TPN started 07/06/19 B:Pertinent PMH: Necrotizing pancreatitis Height: 5 feet, 8 inches Weight: 90.7 kg Current diet: NPO LABS: Sodium: 145 Potassium: 3.6 Chloride: 105 Calcium: 8.6 Corrected Calcium: 10.36 Magnesium: 2.6 CO2: 36 SCr: 0.7 Glucose: 119-179 Albumin: 1.8 AST: 50 ALT: 50 TPN FORMULA: TPN TYPE: Central Continuous AMINO ACIDS: 90 gm DEXTROSE: 225 gm LIPIDS: 30 gm POTASSIUM CHLORIDE: 80 mEq MAGNESIUM: 20 mEq INSULIN: 15 units MULTIPLE VITAMIN: 10 ml TRACE ELEMENTS: 1 ml(s) TPN PLAN: Refill - labs in am R: Continue TPN Will monitor electrolytes, glucose, and tolerance to TPN. Raeann Mcdonnlel [facility], 08/31/19 1135
--- NOTE | 2019-08-31 11:37 | PDOC ---
Subjective: Subjective: Says she can't breathe. Objective: Objective: D/w nurse - had a stool, lots of bilious output, ongoing nausea. Vital Signs: Vital Signs Date Time Temp Pulse Resp B/P (MAP) Pulse Ox O2 Delivery O2 Flow Rate FiO2 08/31/19 10:00 120 30 150/86 (107) 97 8.0 08/31/19 07:43 Trach Collar 08/31/19 07:00 98.8 98.8 Labs: Laboratory Tests Test 08/30/19 18:22 08/31/19 00:23 08/31/19 05:06 08/31/19 05:15 Glucose (Fingerstick) 142 mg/dL 169 mg/dL 91 mg/dL White Blood Count 11.8 x10^3/uL Red Blood Count 2.72 x10^6/uL Hemoglobin 7.7 g/dL Hematocrit 24.0 % Mean Corpuscular Volume 88 fL Mean Corpuscular Hemoglobin 28 pg Mean Corpuscular Hemoglobin Concent 32 g/dL Red Cell Distribution Width 17.9 % Platelet Count 512 x10^3/uL Neutrophils (%) (Auto) 73 % Lymphocytes (%) (Auto) 20 % Monocytes (%) (Auto) 5 % Eosinophils (%) (Auto) 1 % Basophils (%) (Auto) 0 % Neutrophils # (Auto) 8.6 x10^3/uL Lymphocytes # (Auto) 2.4 x10^3/uL Monocytes # (Auto) 0.6 x10^3/uL Eosinophils # (Auto) 0.1 x10^3/uL Basophils # (Auto) 0.0 x10^3/uL Test 08/31/19 11:15 Glucose (Fingerstick) 183 mg/dL ORDERED: ANAER/AEROB/GS COMMENTS: ABDOMINAL FLUID Procedure Result ANAEROBIC-AEROBIC CULTURE Final Final report ANAEROBIC RES 1 Final Comment No anaerobic growth in 72 hours. AEROBIC CULT Final Final report AEROBIC RES 1 Final Yeast isolated. 4+ Request for further identification must be made within 1 week. GRAM STAIN Final Final report GRAM STAIN RES 1 Final Comment No white blood cells seen. GRAM STAIN RES 2 Final No organisms seen Imaging: CXR 08/29 Impression: 1. Moderate bilateral layering pleural effusions, unchanged. 2. Patchy central and bibasilar opacities, unchanged. Thoracentesis 08/29 PE: GEN: NAD, up to chair - nurse present, encouraging her to cough LUNGS: trach shield HEART: tachycardic ABD: softer, NG bilious NEURO/PSYCH: A & O 3 A/P: Gallstone pancreatitis, MOSF -- Continue support. Hemodynamically unstable?: No Is patient in severe pain?: No Is NPO status required?: Yes CYNDEE FALCON August 31, 2019 11:37
--- NOTE | 2019-08-31 11:44 | PDOC ---
[facility] [facility] PROGRESS NOTE Chief Complaint Chief Complaint Acute hypoxic Respiratory failure requiring mechanical ventilation (on vent since 07/10) Tracheostomy bilateral pleural effusions/pulm edema Sepsis Severe Acute gallstone pancreatitis (not a surgical candidate at this time) with necrosis Acute kidney failure now requiring dialysis Salpingitis Gallstones (Calculus of gallbladder with acute cholecystitis without obstruction) HTN Leukocytosis Hypoxia Uterine fibroid Intractable pain Intractable nausea Covid 19 negative. Acute on chronic anemia EEG: No seizure activityFever - better currently - intermittent could be from underlying pancreatitis blood cults 08/21 - neg so far ? Ileus with vomiting Abd distention - U/S and CT reviewed s/p 0.4 L of opaque, debris-containing ascites was removed 08/23 Acute pancreatitis with persistent necrosis - 08/14 status post KAYLIN drain placement + C paropsilosis. s/p additional drains 08/25 Anemia - S/p PRBCs Cholelithiasis with thickening of the gallbladder wall. Leucocytosis improving JUANA, hyperkalemia, Metabolic acidosis off dialysis Acute hypoxic resp failure ,bilateral pleural effusion and atelectasis hypocalcemia Prediabetes HTN s/p trach ESRD on HD Hyperglycemia History of Present Illness History of Present Illness 08/31/2019 Patient seen and examined in the ICU She is up in the chair with O2 via trach shield Extremely anxious Cannot talk but is trying to write things to me although I cannot understand what she is writing Discussed with RN Chart reviewed Still on IV TPN Still extremely ill 08/30/2019 Patient seen and examined in the ICU She now has a trach shield Pleasantly confused but sedated with Precedex Chart reviewed Discussed with RN She has IV TPN Still very critically ill 08/29/2019 Patient seen and examined She remains on the vent but spontaneous respirations with 20 of pressure support and 30% FiO2 He still has NG to suction Appears extremely ill and weak and confused Has IV TPN Precedex antibiotics Lind is to bedside drainage She has SCDs and ProCare boots She is on IV meropenem and daptomycin and micafungin Chart reviewed Discussed with RN Patient is still critically ill Ms Diaz is a 48yo F w/ PMHx HTN, prediabetes who presented to the emergency room with complaints of abdominal pain on 07/04/2019. Found with Lipase 33117, AST 401, ALT 249, Bilirubin 1.4. CT abdomen confirms pancreatic inflammation, peripancreatic fluid and inflammatory changes around the pancreas consistent with pancreatitis. Cholelithiasis and 1.4cm uterine fibroid as well as possible left salpingitis. Admitted for further care GI, General surgery, ID, Pulm consulted. 07/04: PICC placed per IR. Renal US negative. Started on levophed. Repeat CT abdomen w/ necrosis; 07/05: Dialysis catheter per nephrology; 07/06: On BiPAP; 07/07: BiPAP, dialysis; 07/08: Overnight Tmax 101.7 , still on BiPAP FiO2 40%, still on low dose Levophed gtt, TPN initiated. On dialysis 07/24: Tracheostomy; 07/30: S/p tracheostomy on vent spontaneous respirations with 5 of pressure support 35% FiO2, rectal tube and a Lind, off pressors; 08/01:Still on vent via trach. Removed PICC and CVC LIJ and replaced. CT chest/abd/pelvis with bilateral pleural effusion and ascites. 08/02: Renal function stable. Still on vent. More interactive today. Miming wish for food. Plan discussed for thoracentesis/paracentesis with daughters today. They were under impression patient was doing worse due to a miscommunication which has been clarified over the phone. 4.3L removed. 08/04: Febrile overnight 101.8F. More interactive, still on vent. Asking for ice by miming; 08/05: Afebrile overnight. TMax last 24 hours 100.6F. Hb 7.1. Interactive when awake. 08/09: Transfusion 1u PRBC (6U total since admit) 08/10-08/13: TPN and precedex, vent. 08/14: Tmax 101F overnight. Hb 8.2. HD cath out since 08/11. Alert. On vent SIMV 35% FiO2. Surgery: ex-lap, no ronel or pancreatic necrosectomy 2/2 profound inflammation. 08/15: Seen POD #1. Afebrile overnight. BUN 62. CBC WNL today.Remains on vent via trach, TPN. Able to point today and indicate she wishes her daughters and Jamaal to be involved in her care. 08/16: Hb 7.4, Na 151. Remains on vent via trach, TPN. off HD for now. Not tolerating trach shield well. 08/17: Negative US for UE DVT. More relaxed today. Has some increase in UOP. Tolerating vent well. She is requesting to eat and drink via writing. T max 100F 24 hours ago, but 101F at 1200. Right PICC placed. Speaking valve for half the day in isper 08/18: Na 153 today. Good UOP. Tmax 101F at 1200 on 08/17. She becomes a bit anxious and did not sleep much last night, wishes to try to sleep this morning 08/19: Able to speak well with speaking valve today. Na 153, K2.9, Mg 1.8, Cr 1. 100.4F axillary temp overnight. Asking for food. 08/20: Afebrile overnight. ABG with pH 7.27/75/123. Hb 7.1. Na 153. DATA LIBRARIAN settings decreased 08/21: No acute events reported overnight, case discussed with nursing staff patient in no acute distress no complaints during my visit 08/22: Patient responding to verbal stimuli. She is saturating well and not requiring ventilation support, no acute events reported overnight seems to be s lowly improving 08/23: Patient requiring transfusion of packed red blood cells due to anemia, no evidence of acute bleeding, appreciate GI decorator consultant recommendations 08/24: Patient required ventilatory support given that she desaturated, she is lying in bed in mild distress, case discussed with nursing staff, no evidence of bleeding, h an h noted. 08/25: Underwent IR procedure as follows BRIEF OPERATIVE NOTE Pre-Op Diagnosis Pancreatitis with pseudocysts, suspected infection Post-Op Diagnosis same Procedure Performed CT abdominal Drains x 3 Surgeon Tesfaye Anesthesia Type: Conscious Sedation Findings 3 abdominal drains, 14F, with turbid pancreatic fluid and necrotic debris in each. Complications No immediate 08/26: Patient today somewhat restless and having bilious secretions from ET tube, imaging studies ordered, discussed with decorator consultant. Pretty poor prognosis, hopefully is not a fistula, poor surgical candidate. 08/27: Imaging with no acute events, she seems more stable today compared to yesterday. Encouraged as much activity as possible patient at high risk for severe depression. Vitals/I&O Vitals/I&O: Vital Signs Date Time Temp Pulse Resp B/P (MAP) Pulse Ox O2 Delivery O2 Flow Rate FiO2 08/31/19 10:00 120 30 150/86 (107) 97 8.0 08/31/19 07:43 Trach Collar 08/31/19 07:00 98.8 98.8 I & O 08/30/19 08/30/19 08/31/19 14:59 22:59 06:59 Intake Total 100 ml 2166 ml Output Total 3695 ml 825 ml 1100 ml Balance -3595 ml 1341 ml -1100 ml Physical Exam Physical Exam: GENERAL: Up in chair very anxious extremely weak shaky probably confused but on Precedex HEENT: oral cavity dry, NGT NECK: Trach/vent LUNGS: Improved aeration has humidified O2 via trach shield HEART: S1, S2, regular ABDOMEN: Distended, hypoactive BS, tender, + drains x 3 : Lind (08/01) EXTREMITIES: Generalized edema, no cyanosis, SCDs bilaterally SKIN: Warm and dry. No generalized rash. SUPERVISOR STITCHING DEPARTMENT: Nodded some to couple questions PICC(08/17) clean General: Alert, Oriented X3, Cooperative, mild distress Heart: Regular rate, Normal S1, Normal S2, No murmurs, Gallops Lungs: Other (decrease bs) Abdomen: Soft, No tenderness, Other (drains in place) Extremities: No clubbing, No cyanosis, No edema, Normal pulses, No tenderness/swelling Skin: Other (warm, dry) Labs Labs: Laboratory Tests Test 08/30/19 18:22 08/31/19 00:23 08/31/19 05:06 08/31/19 05:15 Glucose (Fingerstick) 142 mg/dL (70-99) 169 mg/dL (70-99) 91 mg/dL (70-99) White Blood Count 11.8 x10^3/uL (4.0-11.0) Red Blood Count 2.72 x10^6/uL (3.50-5.40) Hemoglobin 7.7 g/dL (12.0-15.5) Hematocrit 24.0 % (36.0-47.0) Mean Corpuscular Volume 88 fL (79-100) Mean Corpuscular Hemoglobin 28 pg (25-35) Mean Corpuscular Hemoglobin Concent 32 g/dL (31-37) Red Cell Distribution Width 17.9 % (11.5-14.5) Platelet Count 512 x10^3/uL (140-400) Neutrophils (%) (Auto) 73 % (31-73) Lymphocytes (%) (Auto) 20 % (24-48) Monocytes (%) (Auto) 5 % (0-9) Eosinophils (%) (Auto) 1 % (0-3) Basophils (%) (Auto) 0 % (0-3) Neutrophils # (Auto) 8.6 x10^3/uL (1.8-7.7) Lymphocytes # (Auto) 2.4 x10^3/uL (1.0-4.8) Monocytes # (Auto) 0.6 x10^3/uL (0.0-1.1) Eosinophils # (Auto) 0.1 x10^3/uL (0.0-0.7) Basophils # (Auto) 0.0 x10^3/uL (0.0-0.2) Test 08/31/19 11:15 Glucose (Fingerstick) 183 mg/dL (70-99) Review of Systems Review of Systems: Unable to obtain she is too confused and cannot talk Assessment and Plan Assessmemt and Plan Problems Medical Problems: (1) Acute pancreatitis Status: Acute (2) Cholelithiasis Status: Acute Acute hypoxic Respiratory failure requiring mechanical ventilation (on vent since 07/10) Tracheostomy bilateral pleural effusions/pulm edema Sepsis Severe Acute gallstone pancreatitis (not a surgical candidate at this time) with necrosis Acute kidney failure now requiring dialysis Salpingitis Gallstones (Calculus of gallbladder with acute cholecystitis without obstruction) HTN Leukocytosis Hypoxia Uterine fibroid Intractable pain Intractable nausea Covid 19 negative. Acute on chronic anemia EEG: No seizure activityFever - better currently - intermittent could be from underlying pancreatitis blood cults 08/21 - neg so far ? Ileus with vomiting Abd distention - U/S and CT reviewed s/p 0.4 L of opaque, debris-containing ascites was removed 08/23 Acute pancreatitis with persistent necrosis - 08/14 status post KAYLIN drain placement + C paropsilosis. s/p additional drains 08/25 Anemia - S/p PRBCs Cholelithiasis with thickening of the gallbladder wall. Leucocytosis improving JUANA, hyperkalemia, Metabolic acidosis off dialysis Acute hypoxic resp failure ,bilateral pleural effusion and atelectasis hypocalcemia Prediabetes HTN s/p trach ESRD on HD Hyperglycemia Plan ICU monitoring Wound care Humidified O2 via trach shield NG suctioning Continue IV antibiotics and micafungin Sedation with Precedex TPN protocol Continue Lind to bedside drainage Tracheostomy care Hope to eventually move towards decannulation Trend labs Appreciate subspecialist input She is critically ill Total time 32-minute Comment Review of Relevant I have reviewed the following items kolby (where applicable) has been applied. Medications: Current Medications Medications (Trade) Dose Ordered Sig/Yvon Route PRN Reason Start Time Stop Time Status Last Admin Dose Admin Potassium Chloride 80 meq/ Magnesium Sulfate 20 meq/ Multivitamins 10 ml/Chromium/ Copper/Manganese/ Seleni/Zn 0.5 ml/ Insulin Human Regular 15 unit/ Total Parenteral Nutrition/Amino Acids/Dextrose/ Fat Emulsion Intravenous 1,920 ml @ 80 mls/hr TPN CONT IV 08/30/19 22:00 08/31/19 21:59 08/30/19 21:40 Lidocaine HCl (Buffered Lidocaine 1%) 6 ml 1X ONCE INJ 08/30/19 14:15 08/30/19 14:16 DC 08/30/19 14:15 Hemodynamically unstable?: No Is patient in severe pain?: No Is NPO status required?: Yes BEBO KIRBY III DO August 31, 2019 11:44
--- NOTE | 2019-08-31 13:01 | RAD ---
Ultrasound-guided left-sided thoracentesis 08/31/2019 10:57 AM Indication: ct guided left thoracentesis Procedure: Informed consent was obtained. A timeout procedure was performed. Sonographic evaluation of the left chest was performed demonstrating moderate pleural effusion. The left posterior chest was prepped and draped in sterile fashion. 1% lidocaine without epinephrine was administered for local anesthesia. Real-time ultrasonographic guidance was used in passing a 5 Chinese Yueh catheter into the left pleural space. 850 cc of serous pleural fluid was removed. Samples of fluid were sent to the lab for further evaluation per ordering physician request. The catheter was removed and pressure held to achieve hemostasis. A sterile dressing was applied. No immediate complications were identified. The patient tolerated the procedure well. Impression: Left sided ultrasound-guided thoracentesis
[2019-08-31] MEDS: IV NORMAL SALINE 1000ML BAG 1,000 ML IV SCH (13:18)
--- NOTE | 2019-08-31 14:52 | NUR ---
SW following. Discussed with RN, pt still not ready for discharge. Trach has been capped. SW will continue to follow.
[2019-08-31] MEDS ORDERED: AMINO ACID IV SCH ×8 (22:00)
[2019-08-31] MEDS ORDERED: TOTAL PARENTERAL NUTRITION IV SCH ×8 (22:00)
[2019-08-31] MEDS ORDERED: [UNRECOGNIZED DRUG - OTHER] IV SCH ×8 (22:00)
[2019-08-31] MEDS ORDERED: DEXTROSE 70% IV SCH ×8 (22:00)
[2019-09-01] VITALS (17 sets, daily range): BP systolic 107–156; BP diastolic 56–88
[2019-09-01] MEDS: METOCLOPRAMIDE HCL 10 MG/2 ML VIAL. IVP PRN (04:25)
[2019-09-01] MEDS: INSULIN LISPRO 300 UNITS/3 ML VIAL. SQ SCH ×3 (06:00→18:02)
[2019-09-01] MEDS: MEROPENEM 1 GM in IV NORMAL SALINE 100ML 100 ML IV SCH ×3 (06:06→21:44)
[2019-09-01] MEDS: PROCHLORPERAZINE 10 MG/2 ML VIAL. IV PRN (06:11)
[2019-09-01] MEDS: DEXMEDETOMIDINE 400 MCG in IV NORMAL SALINE 100ML 96 ML IV PRN ×3 (06:15→21:43)
[2019-09-01 06:18] LABS: BASO % 0 % (0-3); EOS # 0.2 x10^3/uL (0.0-0.7); EOS % 2 % (0-3); HEMATOCRIT 24.2 % (36.0-47.0); HEMOGLOBIN 7.7 g/dL (12.0-15.5); LYMPH # 1.4 x10^3/uL (1.0-4.8); LYMPH % 13 % (24-48); MEAN CORPUSCULAR HEMOGLOBIN 28 pg (25-35); MEAN CORPUSCULAR HGB CONC 32 g/dL (31-37); MEAN CORPUSCULAR VOLUME 89 fL (79-100); MONO # 0.6 x10^3/uL (0.0-1.1); MONO % 6 % (0-9); NEUT # 8.4 x10^3/uL (1.8-7.7); NEUT % 80 % (31-73); PLATELET COUNT 521 x10^3/uL (140-400); RED BLOOD COUNT 2.73 x10^6/uL (3.50-5.40); RED CELL DISTRIBUTION WIDTH 17.9 % (11.5-14.5); WHITE BLOOD COUNT 10.5 x10^3/uL (4.0-11.0)
[2019-09-01 06:36] LABS: CALCIUM 8.4 mg/dL (8.5-10.1); CREATININE 0.5 mg/dL (0.6-1.0); GFR 131.1; MAGNESIUM 1.9 mg/dL (1.8-2.4); PHOSPHORUS 3.9 mg/dL (2.6-4.7); POTASSIUM 3.4 mmol/L (3.5-5.1)
[2019-09-01] MEDS: PANTOPRAZOLE IV PUSH 40 MG VIAL. IVP SCH (08:31)
[2019-09-01] MEDS: BUMETANIDE 1 MG/4 ML VIAL. IV SCH (08:32)
--- NOTE | 2019-09-01 09:58 | PDOC ---
Infectious Disease Note Subjective Subjective feeling better says, awake nods appropriately off vent, trach o2 ROS ROS No nausea vomiting diarrhea Vital Sign Vital Signs Vital Signs Date Time Temp Pulse Resp B/P (MAP) Pulse Ox O2 Delivery O2 Flow Rate FiO2 09/01/19 09:00 98.1 120 24 149/88 (108) 98 Nasal Cannula 5.0 98.1 Physical Exam PHYSICAL EXAM GENERAL: Up in chair very anxious extremely weak shaky probably confused but on Precedex HEENT: oral cavity dry, NGT NECK: Trach/vent LUNGS: Improved aeration has humidified O2 via trach shield HEART: S1, S2, regular ABDOMEN: Distended, hypoactive BS, tender, + drains x 3 : Lind (08/01) EXTREMITIES: Generalized edema, no cyanosis, SCDs bilaterally SKIN: Warm and dry. No generalized rash. FLUORESCENT SOLUTION MIXER: Nodded some to couple questions PICC(08/17) clean Labs Lab Laboratory Tests Test 08/31/19 11:15 08/31/19 17:29 08/31/19 23:35 09/01/19 05:45 Glucose (Fingerstick) 183 mg/dL (70-99) 180 mg/dL (70-99) 164 mg/dL (70-99) White Blood Count 10.5 x10^3/uL (4.0-11.0) Red Blood Count 2.73 x10^6/uL (3.50-5.40) Hemoglobin 7.7 g/dL (12.0-15.5) Hematocrit 24.2 % (36.0-47.0) Mean Corpuscular Volume 89 fL (79-100) Mean Corpuscular Hemoglobin 28 pg (25-35) Mean Corpuscular Hemoglobin Concent 32 g/dL (31-37) Red Cell Distribution Width 17.9 % (11.5-14.5) Platelet Count 521 x10^3/uL (140-400) Neutrophils (%) (Auto) 80 % (31-73) Lymphocytes (%) (Auto) 13 % (24-48) Monocytes (%) (Auto) 6 % (0-9) Eosinophils (%) (Auto) 2 % (0-3) Basophils (%) (Auto) 0 % (0-3) Neutrophils # (Auto) 8.4 x10^3/uL (1.8-7.7) Lymphocytes # (Auto) 1.4 x10^3/uL (1.0-4.8) Monocytes # (Auto) 0.6 x10^3/uL (0.0-1.1) Eosinophils # (Auto) 0.2 x10^3/uL (0.0-0.7) Basophils # (Auto) 0.0 x10^3/uL (0.0-0.2) Sodium Level 142 mmol/L (136-145) Potassium Level 3.4 mmol/L (3.5-5.1) Chloride Level 104 mmol/L (98-107) Carbon Dioxide Level 34 mmol/L (21-32) Anion Gap 4 (6-14) Blood Urea Nitrogen 24 mg/dL (7-20) Creatinine 0.5 mg/dL (0.6-1.0) Estimated GFR (Cockcroft-Gault) 131.1 Glucose Level 151 mg/dL (70-99) Calcium Level 8.4 mg/dL (8.5-10.1) Phosphorus Level 3.9 mg/dL (2.6-4.7) Magnesium Level 1.9 mg/dL (1.8-2.4) Test 09/01/19 06:05 Glucose (Fingerstick) 143 mg/dL (70-99) Micro Objective Assessment Fever - better currently - Abd distention - U/S and CT reviewed s/p 0.4 L of opaque, debris-containing ascites was removed 08/23 Acute pancreatitis with persistent necrosis - 08/14 status post KAYLIN drain placement + C paropsilosis. s/p additional drains 08/25 Anemia - S/p PRBCs Cholelithiasis with thickening of the gallbladder wall. Leucocytosis improving JUANA, hyperkalemia, Metabolic acidosis off dialysis Acute hypoxic resp failure ,bilateral pleural effusion and atelectasis hypocalcemia Prediabetes HTN s/p trach Plan Plan of Care , merrem 07/26 - Continue micafungin f/u cultures Maintain aspiration precaution Supportive care KIMMY JONES MD September 01, 2019 09:58
--- NOTE | 2019-09-01 10:16 | NUR ---
SS following up with discharge planning. SS reviewed pt chart and discussed with RN, Ana M. Pt has trach and is currently requiring oxygen. Pt remains NPO and remains on TPN. Pt has four KAYLIN drains and continues IV antibiotics. PT/OT recommended half-way unit. Pt is self pay pt. HCFS completing disability application. SS will continue to follow for discharge planning.
--- NOTE | 2019-09-01 10:25 | PDOC ---
PULMONARY PROGRESS NOTES Subjective Patient intubated on 07/10 , s/p trach 4/6, awake alert follows commands placed on cap trach s/p left tap 08/29 , 3litres removed Vitals Vital Signs Date Time Temp Pulse Resp B/P (MAP) Pulse Ox O2 Delivery O2 Flow Rate FiO2 09/01/19 09:00 98.1 120 24 149/88 (108) 98 Nasal Cannula 5.0 98.1 ROS: No Chest Pain, No Abdominal Pain, No Increase Cough General: Alert, No acute distress Lungs: Other (decrease bs) Cardiovascular: S1, S2 Abdomen: Soft, Non-tender, Other Neuro Exam: Alert Extremities: Other (+3 generalized edema ) Skin: Warm, Dry Labs Laboratory Tests Test 08/30/19 11:31 08/30/19 18:22 08/31/19 00:23 08/31/19 05:06 Glucose (Fingerstick) 179 mg/dL (70-99) 142 mg/dL (70-99) 169 mg/dL (70-99) White Blood Count 11.8 x10^3/uL (4.0-11.0) Red Blood Count 2.72 x10^6/uL (3.50-5.40) Hemoglobin 7.7 g/dL (12.0-15.5) Hematocrit 24.0 % (36.0-47.0) Mean Corpuscular Volume 88 fL (79-100) Mean Corpuscular Hemoglobin 28 pg (25-35) Mean Corpuscular Hemoglobin Concent 32 g/dL (31-37) Red Cell Distribution Width 17.9 % (11.5-14.5) Platelet Count 512 x10^3/uL (140-400) Neutrophils (%) (Auto) 73 % (31-73) Lymphocytes (%) (Auto) 20 % (24-48) Monocytes (%) (Auto) 5 % (0-9) Eosinophils (%) (Auto) 1 % (0-3) Basophils (%) (Auto) 0 % (0-3) Neutrophils # (Auto) 8.6 x10^3/uL (1.8-7.7) Lymphocytes # (Auto) 2.4 x10^3/uL (1.0-4.8) Monocytes # (Auto) 0.6 x10^3/uL (0.0-1.1) Eosinophils # (Auto) 0.1 x10^3/uL (0.0-0.7) Basophils # (Auto) 0.0 x10^3/uL (0.0-0.2) Test 08/31/19 05:15 08/31/19 11:15 08/31/19 17:29 08/31/19 23:35 Glucose (Fingerstick) 91 mg/dL (70-99) 183 mg/dL (70-99) 180 mg/dL (70-99) 164 mg/dL (70-99) Test 09/01/19 05:45 09/01/19 06:05 White Blood Count 10.5 x10^3/uL (4.0-11.0) Red Blood Count 2.73 x10^6/uL (3.50-5.40) Hemoglobin 7.7 g/dL (12.0-15.5) Hematocrit 24.2 % (36.0-47.0) Mean Corpuscular Volume 89 fL (79-100) Mean Corpuscular Hemoglobin 28 pg (25-35) Mean Corpuscular Hemoglobin Concent 32 g/dL (31-37) Red Cell Distribution Width 17.9 % (11.5-14.5) Platelet Count 521 x10^3/uL (140-400) Neutrophils (%) (Auto) 80 % (31-73) Lymphocytes (%) (Auto) 13 % (24-48) Monocytes (%) (Auto) 6 % (0-9) Eosinophils (%) (Auto) 2 % (0-3) Basophils (%) (Auto) 0 % (0-3) Neutrophils # (Auto) 8.4 x10^3/uL (1.8-7.7) Lymphocytes # (Auto) 1.4 x10^3/uL (1.0-4.8) Monocytes # (Auto) 0.6 x10^3/uL (0.0-1.1) Eosinophils # (Auto) 0.2 x10^3/uL (0.0-0.7) Basophils # (Auto) 0.0 x10^3/uL (0.0-0.2) Sodium Level 142 mmol/L (136-145) Potassium Level 3.4 mmol/L (3.5-5.1) Chloride Level 104 mmol/L (98-107) Carbon Dioxide Level 34 mmol/L (21-32) Anion Gap 4 (6-14) Blood Urea Nitrogen 24 mg/dL (7-20) Creatinine 0.5 mg/dL (0.6-1.0) Estimated GFR (Cockcroft-Gault) 131.1 Glucose Level 151 mg/dL (70-99) Calcium Level 8.4 mg/dL (8.5-10.1) Phosphorus Level 3.9 mg/dL (2.6-4.7) Magnesium Level 1.9 mg/dL (1.8-2.4) Glucose (Fingerstick) 143 mg/dL (70-99) Laboratory Tests Test 08/31/19 11:15 08/31/19 17:29 08/31/19 23:35 09/01/19 05:45 Glucose (Fingerstick) 183 mg/dL (70-99) 180 mg/dL (70-99) 164 mg/dL (70-99) White Blood Count 10.5 x10^3/uL (4.0-11.0) Red Blood Count 2.73 x10^6/uL (3.50-5.40) Hemoglobin 7.7 g/dL (12.0-15.5) Hematocrit 24.2 % (36.0-47.0) Mean Corpuscular Volume 89 fL (79-100) Mean Corpuscular Hemoglobin 28 pg (25-35) Mean Corpuscular Hemoglobin Concent 32 g/dL (31-37) Red Cell Distribution Width 17.9 % (11.5-14.5) Platelet Count 521 x10^3/uL (140-400) Neutrophils (%) (Auto) 80 % (31-73) Lymphocytes (%) (Auto) 13 % (24-48) Monocytes (%) (Auto) 6 % (0-9) Eosinophils (%) (Auto) 2 % (0-3) Basophils (%) (Auto) 0 % (0-3) Neutrophils # (Auto) 8.4 x10^3/uL (1.8-7.7) Lymphocytes # (Auto) 1.4 x10^3/uL (1.0-4.8) Monocytes # (Auto) 0.6 x10^3/uL (0.0-1.1) Eosinophils # (Auto) 0.2 x10^3/uL (0.0-0.7) Basophils # (Auto) 0.0 x10^3/uL (0.0-0.2) Sodium Level 142 mmol/L (136-145) Potassium Level 3.4 mmol/L (3.5-5.1) Chloride Level 104 mmol/L (98-107) Carbon Dioxide Level 34 mmol/L (21-32) Anion Gap 4 (6-14) Blood Urea Nitrogen 24 mg/dL (7-20) Creatinine 0.5 mg/dL (0.6-1.0) Estimated GFR (Cockcroft-Gault) 131.1 Glucose Level 151 mg/dL (70-99) Calcium Level 8.4 mg/dL (8.5-10.1) Phosphorus Level 3.9 mg/dL (2.6-4.7) Magnesium Level 1.9 mg/dL (1.8-2.4) Test 09/01/19 06:05 Glucose (Fingerstick) 143 mg/dL (70-99) Medications Active Scripts Medications Dose Route/Sig Max Daily Dose Days Date Category Bisoprolol Fumarate 5 Mg Tablet 10 Mg PO DAILY 07/04/19 Reported Comments CXR 08/30/2019 persistent moderate effusions Impression . IMPRESSION: 1. Acute hypoxemic respiratory failure secondary to ARDS status post trach, 2. Gallstone pancreatitis 3. Severe metabolic acidosis.stable 4. Acute kidney injury-stable, Off HD-- continue to improve 5. Acute gallstone pancreatitis. 6. Hypoalbuminemia. 7. Moderate persistent effusions, s/p left thora 08/29 8. Fever- Per ID, per surgery--resolved 9. Chronic anemia 10. Covid 19 testing negative 11. Moderate to large ascites-S/P paracentisis 12.S/P paracentisis with 4 liters removed on 08/03/19 13. S/P IR drain placement on 08/26/2019 Plan . d/w IR , s/p thoracentesis, 08/29, 3 litres removed TS all day wit hprn capping Follow surgery recs-- S/P 3 drain placed in IR on 08/26/2019 Follow ID recs for ABX Follow nephrology recs Continue TPN DVT/GI PPX: heparin SQ/ protonix D/W RN and RT CODE:FULL VINAYAK LANDRUM MD September 01, 2019 10:25
--- NOTE | 2019-09-01 10:34 | PDOC ---
Subjective: Subjective: "So-so." Breathing better? Objective: Objective: Vomited once, ongoing bilious output from NG, got Compazine overnight. Vital Signs: Vital Signs Date Time Temp Pulse Resp B/P (MAP) Pulse Ox O2 Delivery O2 Flow Rate FiO2 09/01/19 10:00 140 28 150/88 (108) 98 Nasal Cannula 5.0 09/01/19 09:00 98.1 98.1 Labs: Laboratory Tests Test 08/31/19 11:15 08/31/19 17:29 08/31/19 23:35 09/01/19 05:45 Glucose (Fingerstick) 183 mg/dL 180 mg/dL 164 mg/dL White Blood Count 10.5 x10^3/uL Red Blood Count 2.73 x10^6/uL Hemoglobin 7.7 g/dL Hematocrit 24.2 % Mean Corpuscular Volume 89 fL Mean Corpuscular Hemoglobin 28 pg Mean Corpuscular Hemoglobin Concent 32 g/dL Red Cell Distribution Width 17.9 % Platelet Count 521 x10^3/uL Neutrophils (%) (Auto) 80 % Lymphocytes (%) (Auto) 13 % Monocytes (%) (Auto) 6 % Eosinophils (%) (Auto) 2 % Basophils (%) (Auto) 0 % Neutrophils # (Auto) 8.4 x10^3/uL Lymphocytes # (Auto) 1.4 x10^3/uL Monocytes # (Auto) 0.6 x10^3/uL Eosinophils # (Auto) 0.2 x10^3/uL Basophils # (Auto) 0.0 x10^3/uL Sodium Level 142 mmol/L Potassium Level 3.4 mmol/L Chloride Level 104 mmol/L Carbon Dioxide Level 34 mmol/L Anion Gap 4 Blood Urea Nitrogen 24 mg/dL Creatinine 0.5 mg/dL Estimated GFR (Cockcroft-Gault) 131.1 Glucose Level 151 mg/dL Calcium Level 8.4 mg/dL Phosphorus Level 3.9 mg/dL Magnesium Level 1.9 mg/dL Test 09/01/19 06:05 Glucose (Fingerstick) 143 mg/dL PE: GEN: NAD LUNGS: trach, NC HEART: tachycardic ABD: improved distention, soft, BS+, drains NEURO/PSYCH: A & O 3, anxious A/P: Gallstone pancreatitis, MOSF -- Continue support. Hemodynamically unstable?: No Is patient in severe pain?: No Is NPO status required?: Yes CYNDEE FALCON September 01, 2019 10:34
--- NOTE | 2019-09-01 10:45 | NUR ---
pt rested until 0830 this am. pt then assisted to rehab chair x1 assist. pt able to stand and balance on own feet and took 4 steps over to chair. pt trach care completed and trach capped. precedex increased due to heart rate in the 140-150 range and rr in the high 20's. pt doing sit down exercises on legs of ankle pumps and leg lifts.
[2019-09-01] MEDS ORDERED: POTASSIUM CHLORIDE 20MEQ 100 ML IV ONE (11:00)
[2019-09-01] MEDS: MICAFUNGIN 100 MG in IV DEXTROSE 5% 100ML 100 ML IV SCH (11:29)
--- NOTE | 2019-09-01 11:35 | PDOC ---
[facility] [facility] PROGRESS NOTE Chief Complaint Chief Complaint Acute hypoxic Respiratory failure requiring mechanical ventilation (on vent since 07/10) Tracheostomy bilateral pleural effusions/pulm edema Sepsis Severe Acute gallstone pancreatitis (not a surgical candidate at this time) with necrosis Acute kidney failure now requiring dialysis Salpingitis Gallstones (Calculus of gallbladder with acute cholecystitis without obstruction) HTN Leukocytosis Hypoxia Uterine fibroid Intractable pain Intractable nausea Covid 19 negative. Acute on chronic anemia EEG: No seizure activityFever - better currently - intermittent could be from underlying pancreatitis blood cults 08/21 - neg so far ? Ileus with vomiting Abd distention - U/S and CT reviewed s/p 0.4 L of opaque, debris-containing ascites was removed 08/23 Acute pancreatitis with persistent necrosis - 08/14 status post KAYLIN drain placement + C paropsilosis. s/p additional drains 08/25 Anemia - S/p PRBCs Cholelithiasis with thickening of the gallbladder wall. Leucocytosis improving JUANA, hyperkalemia, Metabolic acidosis off dialysis Acute hypoxic resp failure ,bilateral pleural effusion and atelectasis hypocalcemia Prediabetes HTN s/p trach ESRD on HD Hyperglycemia History of Present Illness History of Present Illness 09/01/2019 Patient seen and examined in the ICU She now has a speaking valve in her trach and is able to talk She is extremely weak and shaky Chart reviewed discussed with RN 08/31/2019 Patient seen and examined in the ICU She is up in the chair with O2 via trach shield Extremely anxious Cannot talk but is trying to write things to me although I cannot understand what she is writing Discussed with RN Chart reviewed Still on IV TPN Still extremely ill 08/30/2019 Patient seen and examined in the ICU She now has a trach shield Pleasantly confused but sedated with Precedex Chart reviewed Discussed with RN She has IV TPN Still very critically ill 08/29/2019 Patient seen and examined She remains on the vent but spontaneous respirations with 20 of pressure support and 30% FiO2 He still has NG to suction Appears extremely ill and weak and confused Has IV TPN Precedex antibiotics Lind is to bedside drainage She has SCDs and ProCare boots She is on IV meropenem and daptomycin and micafungin Chart reviewed Discussed with RN Patient is still critically ill Ms Diaz is a 48yo F w/ PMHx HTN, prediabetes who presented to the emergency room with complaints of abdominal pain on 07/04/2019. Found with Lipase 70652, AST 401, ALT 249, Bilirubin 1.4. CT abdomen confirms pancreatic inflammation, peripancreatic fluid and inflammatory changes around the pancreas consistent with pancreatitis. Cholelithiasis and 1.4cm uterine fibroid as well as possible left salpingitis. Admitted for further care GI, General surgery, ID, Pulm consulted. 07/04: PICC placed per IR. Renal US negative. Started on levophed. Repeat CT abdomen w/ necrosis; 07/05: Dialysis catheter per nephrology; 07/06: On BiPAP; : BiPAP, dialysis; 07/08: Overnight Tmax 101.7 , still on BiPAP FiO2 40%, still on low dose Levophed gtt, TPN initiated. On dialysis 07/24: Tracheostomy; 07/30: S/p tracheostomy on vent spontaneous respirations with 5 of pressure support 35% FiO2, rectal tube and a Lind, off pressors; 08/01:Still on vent via trach. Removed PICC and CVC LIJ and replaced. CT chest/abd/pelvis with bilateral pleural effusion and ascites. 08/02: Renal function stable. Still on vent. More interactive today. Miming wish for food. Plan discussed for thoracentesis/paracentesis with daughters today. They were under impression patient was doing worse due to a miscommunication which has been clarified over the phone. 4.3L removed. 08/04: Febrile overnight 101.8F. More interactive, still on vent. Asking for ice by miming; 08/05: Afebrile overnight. TMax last 24 hours 100.6F. Hb 7.1. Interactive when awake. 08/09: Transfusion 1u PRBC (6U total since admit) 08/10-08/13: TPN and precedex, vent. 08/14: Tmax 101F overnight. Hb 8.2. HD cath out since 08/11. Alert. On vent SIMV 35% FiO2. Surgery: ex-lap, no ronel or pancreatic necrosectomy 2/2 profound inflammation. 08/15: Seen POD #1. Afebrile overnight. BUN 62. CBC WNL today.Remains on vent via trach, TPN. Able to point today and indicate she wishes her daughters and Jamaal to be involved in her care. 08/16: Hb 7.4, Na 151. Remains on vent via trach, TPN. off HD for now. Not tolerating trach shield well. 08/17: Negative US for UE DVT. More relaxed today. Has some increase in UOP. Tolerating vent well. She is requesting to eat and drink via writing. T max 100F 24 hours ago, but 101F at 1200. Right PICC placed. Speaking valve for half the day in [facility] 08/18: Na 153 today. Good UOP. Tmax 101F at 1200 on 08/17. She becomes a bit anxious and did not sleep much last night, wishes to try to sleep this morning 08/19: Able to speak well with speaking valve today. Na 153, K2.9, Mg 1.8, Cr 1. 100.4F axillary temp overnight. Asking for food. 08/20: Afebrile overnight. ABG with pH 7.27/75/123. Hb 7.1. Na 153. SLACK LINE YARDER settings decreased 08/21: No acute events reported overnight, case discussed with nursing staff patient in no acute distress no complaints during my visit 08/22: Patient responding to verbal stimuli. She is saturating well and not requiring ventilation support, no acute events reported overnight seems to be slowly improving 08/23: Patient requiring transfusion of packed red blood cells due to anemia, no evidence of acute bleeding, appreciate GI provider contracting consultant recommendations 08/24: Patient required ventilatory support given that she desaturated, she is lying in bed in mild distress, case discussed with nursing staff, no evidence of bleeding, h an h noted. 08/25: Underwent IR procedure as follows BRIEF OPERATIVE NOTE Pre-Op Diagnosis Pancreatitis with pseudocysts, suspected infection Post-Op Diagnosis same Procedure Performed CT abdominal Drains x 3 Surgeon Tesfaye Anesthesia Type: Conscious Sedation Findings 3 abdominal drains, 14F, with turbid pancreatic fluid and necrotic debris in each. Complications No immediate 08/26: Patient today somewhat restless and having bilious secretions from ET tube, imaging studies ordered, discussed with provider contracting consultant. Pretty poor prognosis, hopefully is not a fistula, poor surgical candidate. 08/27: Imaging with no acute events, she seems more stable today compared to yesterday. Encouraged as much activity as possible patient at high risk for severe depression. Vitals/I&O Vitals/I&O: Vital Signs Date Time Temp Pulse Resp B/P (MAP) Pulse Ox O2 Delivery O2 Flow Rate FiO2 09/01/19 10:57 122 26 154/86 (108) 100 Tracheal Collar 8.0 09/01/19 09:00 98.1 98.1 I & O 08/31/19 08/31/19 09/01/19 15:00 23:00 07:00 Intake Total 200 ml 1846 ml 1270.1 ml Output Total 1480 ml 1365 ml 725 ml Balance -1280 ml 481 ml 545.1 ml Physical Exam Physical Exam: GENERAL: Up in chair very anxious extremely weak shaky probably confused but on Precedex HEENT: oral cavity dry, NGT NECK: Trach/vent LUNGS: Improved aeration has humidified O2 via trach shield HEART: S1, S2, regular ABDOMEN: Distended, hypoactive BS, tender, + drains x 3 : Lind (08/01) EXTREMITIES: Generalized edema, no cyanosis, SCDs bilaterally SKIN: Warm and dry. No generalized rash. MILL SUPERVISOR: Nodded some to couple questions PICC(08/17) clean General: Alert, Oriented X3, Cooperative, mild distress Heart: Regular rate, Normal S1, Normal S2, No murmurs, Gallops Lungs: Other (decrease bs) Abdomen: Soft, No tenderness, Other (drains in place) Extremities: No clubbing, No cyanosis, No edema, Normal pulses, No tenderness/swelling Skin: Other (warm, dry) Labs Labs: Laboratory Tests Test 08/31/19 17:29 08/31/19 23:35 09/01/19 05:45 09/01/19 06:05 Glucose (Fingerstick) 180 mg/dL (70-99) 164 mg/dL (70-99) 143 mg/dL (70-99) White Blood Count 10.5 x10^3/uL (4.0-11.0) Red Blood Count 2.73 x10^6/uL (3.50-5.40) Hemoglobin 7.7 g/dL (12.0-15.5) Hematocrit 24.2 % (36.0-47.0) Mean Corpuscular Volume 89 fL (79-100) Mean Corpuscular Hemoglobin 28 pg (25-35) Mean Corpuscular Hemoglobin Concent 32 g/dL (31-37) Red Cell Distribution Width 17.9 % (11.5-14.5) Platelet Count 521 x10^3/uL (140-400) Neutrophils (%) (Auto) 80 % (31-73) Lymphocytes (%) (Auto) 13 % (24-48) Monocytes (%) (Auto) 6 % (0-9) Eosinophils (%) (Auto) 2 % (0-3) Basophils (%) (Auto) 0 % (0-3) Neutrophils # (Auto) 8.4 x10^3/uL (1.8-7.7) Lymphocytes # (Auto) 1.4 x10^3/uL (1.0-4.8) Monocytes # (Auto) 0.6 x10^3/uL (0.0-1.1) Eosinophils # (Auto) 0.2 x10^3/uL (0.0-0.7) Basophils # (Auto) 0.0 x10^3/uL (0.0-0.2) Sodium Level 142 mmol/L (136-145) Potassium Level 3.4 mmol/L (3.5-5.1) Chloride Level 104 mmol/L (98-107) Carbon Dioxide Level 34 mmol/L (21-32) Anion Gap 4 (6-14) Blood Urea Nitrogen 24 mg/dL (7-20) Creatinine 0.5 mg/dL (0.6-1.0) Estimated GFR (Cockcroft-Gault) 131.1 Glucose Level 151 mg/dL (70-99) Calcium Level 8.4 mg/dL (8.5-10.1) Phosphorus Level 3.9 mg/dL (2.6-4.7) Magnesium Level 1.9 mg/dL (1.8-2.4) Assessment and Plan Assessmemt and Plan Problems Medical Problems: (1) Acute pancreatitis Status: Acute (2) Cholelithiasis Status: Acute Acute hypoxic Respiratory failure requiring mechanical ventilation (on vent since 07/10) Tracheostomy bilateral pleural effusions/pulm edema Sepsis Severe Acute gallstone pancreatitis (not a surgical candidate at this time) with necrosis Acute kidney failure now requiring dialysis Salpingitis Gallstones (Calculus of gallbladder with acute cholecystitis without obstruction) HTN Leukocytosis Hypoxia Uterine fibroid Intractable pain Intractable nausea Covid 19 negative. Acute on chronic anemia EEG: No seizure activityFever - better currently - intermittent could be from underlying pancreatitis blood cults 08/21 - neg so far ? Ileus with vomiting Abd distention - U/S and CT reviewed s/p 0.4 L of opaque, debris-containing ascites was removed 08/23 Acute pancreatitis with persistent necrosis - 08/14 status post KAYLIN drain placement + C paropsilosis. s/p additional drains 08/25 Anemia - S/p PRBCs Cholelithiasis with thickening of the gallbladder wall. Leucocytosis improving JUANA, hyperkalemia, Metabolic acidosis off dialysis Acute hypoxic resp failure ,bilateral pleural effusion and atelectasis hypocalcemia Prediabetes HTN s/p trach ESRD on HD Hyperglycemia Plan ICU monitoring Wound care Humidified O2 via trach shield NG suctioning Continue IV antibiotics and micafungin Sedation with Precedex TPN protocol Continue Lind to bedside drainage Tracheostomy care Hope to eventually move towards decannulation (we have a speaking valve for now) Trend labs Appreciate subspecialist input She is critically ill Total time 34-minute Comment Review of Relevant I have reviewed the following items kolby (where applicable) has been applied. Medications: Current Medications Medications (Trade) Dose Ordered Sig/Yvon Route PRN Reason Start Time Stop Time Status Last Admin Dose Admin Potassium Chloride 80 meq/ Magnesium Sulfate 20 meq/ Multivitamins 10 ml/Chromium/ Copper/Manganese/ Seleni/Zn 1 ml/ Insulin Human Regular 15 unit/ Total Parenteral Nutrition/Amino Acids/Dextrose/ Fat Emulsion Intravenous 1,920 ml @ 80 mls/hr TPN CONT IV 08/31/19 22:00 09/01/19 21:59 08/31/19 22:04 Hemodynamically unstable?: No Is patient in severe pain?: No Is NPO status required?: Yes BEBO KIRBY III DO September 01, 2019 11:35
[2019-09-01] MEDS: TPN PER PHARMACY MC PRN (11:52)
--- NOTE | 2019-09-01 11:53 | NUR ---
Pharmacy TPN Dosing Note S: SCOTT AVILA is a 48 year old F Currently receiving Central Continuous TPN started 07/06/19 B:Pertinent PMH: Necrotizing pancreatitis Height: 5 feet, 8 inches Weight: 90.7 kg Current diet: NPO LABS: Sodium: 142 Potassium: 3.4 Chloride: 104 Calcium: 8.4 Corrected Calcium: 10.16 Magnesium: 1.9 CO2: 34 SCr: 0.5 Glucose: 143-151 Albumin: 1.8 AST: 50 ALT: 50 TPN FORMULA: TPN TYPE: Central Continuous AMINO ACIDS: 90 gm DEXTROSE: 225 gm LIPIDS: 30 gm POTASSIUM CHLORIDE: 90 mEq MAGNESIUM: 20 mEq INSULIN: 15 units MULTIPLE VITAMIN: 10 ml TRACE ELEMENTS: 0.5 ml(s) TPN PLAN: Replace K with KCL 20 meq IVPB x 1 dose. Increase KCL in TPN to 90 meq. -BMP in AM. R: Change TPN as noted above. Will monitor electrolytes, glucose, and tolerance to TPN. MIKAYLA CHU RPH, 09/01/19 [id number]
--- NOTE | 2019-09-01 12:07 | PDOC ---
SURGICAL PROGRESS NOTE Subjective Pt with c/o abd pain Vital Signs Vital Signs Date Time Temp Pulse Resp B/P (MAP) Pulse Ox O2 Delivery O2 Flow Rate FiO2 09/01/19 10:57 122 26 154/86 (108) 100 Tracheal Collar 8.0 09/01/19 09:00 98.1 98.1 I&O Intake and Output 09/01/19 07:00 Intake Total 3316.1 ml Output Total 3570 ml Balance -253.9 ml IV Total 3228.1 ml Other 88 ml Output Urine Total 2960 ml Gastric Drainage Total 200 ml Drainage Total 410 ml # Bowel Movements 1 PATIENT HAS A ROSARIO: Yes (accurate i and os) General: Alert, Oriented X3, Cooperative, mild distress Abdomen: Soft, No tenderness, Other (drains in place) Labs Laboratory Tests Test 08/30/19 18:22 08/31/19 00:23 08/31/19 05:06 08/31/19 05:15 Glucose (Fingerstick) 142 mg/dL (70-99) 169 mg/dL (70-99) 91 mg/dL (70-99) White Blood Count 11.8 x10^3/uL (4.0-11.0) Red Blood Count 2.72 x10^6/uL (3.50-5.40) Hemoglobin 7.7 g/dL (12.0-15.5) Hematocrit 24.0 % (36.0-47.0) Mean Corpuscular Volume 88 fL (79-100) Mean Corpuscular Hemoglobin 28 pg (25-35) Mean Corpuscular Hemoglobin Concent 32 g/dL (31-37) Red Cell Distribution Width 17.9 % (11.5-14.5) Platelet Count 512 x10^3/uL (140-400) Neutrophils (%) (Auto) 73 % (31-73) Lymphocytes (%) (Auto) 20 % (24-48) Monocytes (%) (Auto) 5 % (0-9) Eosinophils (%) (Auto) 1 % (0-3) Basophils (%) (Auto) 0 % (0-3) Neutrophils # (Auto) 8.6 x10^3/uL (1.8-7.7) Lymphocytes # (Auto) 2.4 x10^3/uL (1.0-4.8) Monocytes # (Auto) 0.6 x10^3/uL (0.0-1.1) Eosinophils # (Auto) 0.1 x10^3/uL (0.0-0.7) Basophils # (Auto) 0.0 x10^3/uL (0.0-0.2) Test 08/31/19 11:15 08/31/19 17:29 08/31/19 23:35 09/01/19 05:45 Glucose (Fingerstick) 183 mg/dL (70-99) 180 mg/dL (70-99) 164 mg/dL (70-99) White Blood Count 10.5 x10^3/uL (4.0-11.0) Red Blood Count 2.73 x10^6/uL (3.50-5.40) Hemoglobin 7.7 g/dL (12.0-15.5) Hematocrit 24.2 % (36.0-47.0) Mean Corpuscular Volume 89 fL (79-100) Mean Corpuscular Hemoglobin 28 pg (25-35) Mean Corpuscular Hemoglobin Concent 32 g/dL (31-37) Red Cell Distribution Width 17.9 % (11.5-14.5) Platelet Count 521 x10^3/uL (140-400) Neutrophils (%) (Auto) 80 % (31-73) Lymphocytes (%) (Auto) 13 % (24-48) Monocytes (%) (Auto) 6 % (0-9) Eosinophils (%) (Auto) 2 % (0-3) Basophils (%) (Auto) 0 % (0-3) Neutrophils # (Auto) 8.4 x10^3/uL (1.8-7.7) Lymphocytes # (Auto) 1.4 x10^3/uL (1.0-4.8) Monocytes # (Auto) 0.6 x10^3/uL (0.0-1.1) Eosinophils # (Auto) 0.2 x10^3/uL (0.0-0.7) Basophils # (Auto) 0.0 x10^3/uL (0.0-0.2) Sodium Level 142 mmol/L (136-145) Potassium Level 3.4 mmol/L (3.5-5.1) Chloride Level 104 mmol/L (98-107) Carbon Dioxide Level 34 mmol/L (21-32) Anion Gap 4 (6-14) Blood Urea Nitrogen 24 mg/dL (7-20) Creatinine 0.5 mg/dL (0.6-1.0) Estimated GFR (Cockcroft-Gault) 131.1 Glucose Level 151 mg/dL (70-99) Calcium Level 8.4 mg/dL (8.5-10.1) Phosphorus Level 3.9 mg/dL (2.6-4.7) Magnesium Level 1.9 mg/dL (1.8-2.4) Test 09/01/19 06:05 09/01/19 11:37 Glucose (Fingerstick) 143 mg/dL (70-99) 200 mg/dL (70-99) Laboratory Tests Test 08/31/19 17:29 08/31/19 23:35 09/01/19 05:45 09/01/19 06:05 Glucose (Fingerstick) 180 mg/dL (70-99) 164 mg/dL (70-99) 143 mg/dL (70-99) White Blood Count 10.5 x10^3/uL (4.0-11.0) Red Blood Count 2.73 x10^6/uL (3.50-5.40) Hemoglobin 7.7 g/dL (12.0-15.5) Hematocrit 24.2 % (36.0-47.0) Mean Corpuscular Volume 89 fL (79-100) Mean Corpuscular Hemoglobin 28 pg (25-35) Mean Corpuscular Hemoglobin Concent 32 g/dL (31-37) Red Cell Distribution Width 17.9 % (11.5-14.5) Platelet Count 521 x10^3/uL (140-400) Neutrophils (%) (Auto) 80 % (31-73) Lymphocytes (%) (Auto) 13 % (24-48) Monocytes (%) (Auto) 6 % (0-9) Eosinophils (%) (Auto) 2 % (0-3) Basophils (%) (Auto) 0 % (0-3) Neutrophils # (Auto) 8.4 x10^3/uL (1.8-7.7) Lymphocytes # (Auto) 1.4 x10^3/uL (1.0-4.8) Monocytes # (Auto) 0.6 x10^3/uL (0.0-1.1) Eosinophils # (Auto) 0.2 x10^3/uL (0.0-0.7) Basophils # (Auto) 0.0 x10^3/uL (0.0-0.2) Sodium Level 142 mmol/L (136-145) Potassium Level 3.4 mmol/L (3.5-5.1) Chloride Level 104 mmol/L (98-107) Carbon Dioxide Level 34 mmol/L (21-32) Anion Gap 4 (6-14) Blood Urea Nitrogen 24 mg/dL (7-20) Creatinine 0.5 mg/dL (0.6-1.0) Estimated GFR (Cockcroft-Gault) 131.1 Glucose Level 151 mg/dL (70-99) Calcium Level 8.4 mg/dL (8.5-10.1) Phosphorus Level 3.9 mg/dL (2.6-4.7) Magnesium Level 1.9 mg/dL (1.8-2.4) Test 09/01/19 11:37 Glucose (Fingerstick) 200 mg/dL (70-99) Problem List Problems Medical Problems: (1) Acute pancreatitis Status: Acute (2) Cholelithiasis Status: Acute Assessment/Plan s/p lap exploration cont supportive care. DAVON SIMMS MD September 01, 2019 12:07
[2019-09-01] MEDS: IV NORMAL SALINE 1000ML BAG 1,000 ML IV SCH (14:17)
[2019-09-01] MEDS: HYDROmorphone 2 MG/ML VIAL IVP PRN ×2 (15:37→21:04)
[2019-09-01] MEDS ORDERED: TOTAL PARENTERAL NUTRITION IV SCH ×8 (22:00)
[2019-09-01] MEDS ORDERED: AMINO ACID IV SCH ×8 (22:00)
[2019-09-01] MEDS ORDERED: DEXTROSE 70% IV SCH ×8 (22:00)
[2019-09-01] MEDS ORDERED: [UNRECOGNIZED DRUG - OTHER] IV SCH ×8 (22:00)
[2019-09-02] VITALS (24 sets, daily range): BP systolic 73–184; BP diastolic 51–100
[2019-09-02] MEDS: INSULIN LISPRO 300 UNITS/3 ML VIAL. SQ SCH ×4 (00:52→18:00)
[2019-09-02] MEDS: HYDROmorphone 2 MG/ML VIAL IVP PRN ×4 (04:02→21:04)
[2019-09-02] MEDS: DEXMEDETOMIDINE 400 MCG in IV NORMAL SALINE 100ML 96 ML IV PRN ×4 (04:22→21:03)
[2019-09-02] MEDS: MEROPENEM 1 GM in IV NORMAL SALINE 100ML 100 ML IV SCH ×3 (06:17→22:45)
[2019-09-02 06:57] LABS: CALCIUM 8.5 mg/dL (8.5-10.1); CREATININE 0.6 mg/dL (0.6-1.0); GFR 106.3; POTASSIUM 4.1 mmol/L (3.5-5.1)
[2019-09-02 07:19] LABS: BASO % 0 % (0-3); EOS # 0.2 x10^3/uL (0.0-0.7); EOS % 2 % (0-3); HEMATOCRIT 22.8 % (36.0-47.0); HEMOGLOBIN 7.2 g/dL (12.0-15.5); LYMPH # 1.2 x10^3/uL (1.0-4.8); LYMPH % 13 % (24-48); MEAN CORPUSCULAR HEMOGLOBIN 28 pg (25-35); MEAN CORPUSCULAR HGB CONC 32 g/dL (31-37); MEAN CORPUSCULAR VOLUME 89 fL (79-100); MONO # 0.5 x10^3/uL (0.0-1.1); MONO % 6 % (0-9); NEUT # 7.1 x10^3/uL (1.8-7.7); NEUT % 79 % (31-73); PLATELET COUNT 489 x10^3/uL (140-400); RED BLOOD COUNT 2.56 x10^6/uL (3.50-5.40); RED CELL DISTRIBUTION WIDTH 17.9 % (11.5-14.5)
[2019-09-02] MEDS: PANTOPRAZOLE IV PUSH 40 MG VIAL. IVP SCH (08:03)
--- NOTE | 2019-09-02 08:51 | PDOC ---
SURGICAL PROGRESS NOTE Subjective Pt resting comfortably, manny trach valve Vital Signs Vital Signs Date Time Temp Pulse Resp B/P (MAP) Pulse Ox O2 Delivery O2 Flow Rate FiO2 09/02/19 06:00 78 14 73/51 (58) 100 Nasal Cannula 5.0 09/02/19 04:00 98.3 98.3 I&O Intake and Output 09/02/19 07:00 Intake Total 1434 ml Output Total 3305 ml Balance -1871 ml Intake Oral 0 ml IV Total 1434 ml Output Urine Total 2305 ml Gastric Drainage Total 600 ml Drainage Total 400 ml General: No acute distress Labs Laboratory Tests Test 08/31/19 11:15 08/31/19 17:29 08/31/19 23:35 09/01/19 05:45 Glucose (Fingerstick) 183 mg/dL (70-99) 180 mg/dL (70-99) 164 mg/dL (70-99) White Blood Count 10.5 x10^3/uL (4.0-11.0) Red Blood Count 2.73 x10^6/uL (3.50-5.40) Hemoglobin 7.7 g/dL (12.0-15.5) Hematocrit 24.2 % (36.0-47.0) Mean Corpuscular Volume 89 fL (79-100) Mean Corpuscular Hemoglobin 28 pg (25-35) Mean Corpuscular Hemoglobin Concent 32 g/dL (31-37) Red Cell Distribution Width 17.9 % (11.5-14.5) Platelet Count 521 x10^3/uL (140-400) Neutrophils (%) (Auto) 80 % (31-73) Lymphocytes (%) (Auto) 13 % (24-48) Monocytes (%) (Auto) 6 % (0-9) Eosinophils (%) (Auto) 2 % (0-3) Basophils (%) (Auto) 0 % (0-3) Neutrophils # (Auto) 8.4 x10^3/uL (1.8-7.7) Lymphocytes # (Auto) 1.4 x10^3/uL (1.0-4.8) Monocytes # (Auto) 0.6 x10^3/uL (0.0-1.1) Eosinophils # (Auto) 0.2 x10^3/uL (0.0-0.7) Basophils # (Auto) 0.0 x10^3/uL (0.0-0.2) Sodium Level 142 mmol/L (136-145) Potassium Level 3.4 mmol/L (3.5-5.1) Chloride Level 104 mmol/L (98-107) Carbon Dioxide Level 34 mmol/L (21-32) Anion Gap 4 (6-14) Blood Urea Nitrogen 24 mg/dL (7-20) Creatinine 0.5 mg/dL (0.6-1.0) Estimated GFR (Cockcroft-Gault) 131.1 Glucose Level 151 mg/dL (70-99) Calcium Level 8.4 mg/dL (8.5-10.1) Phosphorus Level 3.9 mg/dL (2.6-4.7) Magnesium Level 1.9 mg/dL (1.8-2.4) Test 09/01/19 06:05 09/01/19 11:37 09/01/19 18:00 09/02/19 00:49 Glucose (Fingerstick) 143 mg/dL (70-99) 200 mg/dL (70-99) 174 mg/dL (70-99) 152 mg/dL (70-99) Test 09/02/19 06:40 09/02/19 06:43 White Blood Count 9.0 x10^3/uL (4.0-11.0) Red Blood Count 2.56 x10^6/uL (3.50-5.40) Hemoglobin 7.2 g/dL (12.0-15.5) Hematocrit 22.8 % (36.0-47.0) Mean Corpuscular Volume 89 fL (79-100) Mean Corpuscular Hemoglobin 28 pg (25-35) Mean Corpuscular Hemoglobin Concent 32 g/dL (31-37) Red Cell Distribution Width 17.9 % (11.5-14.5) Platelet Count 489 x10^3/uL (140-400) Neutrophils (%) (Auto) 79 % (31-73) Lymphocytes (%) (Auto) 13 % (24-48) Monocytes (%) (Auto) 6 % (0-9) Eosinophils (%) (Auto) 2 % (0-3) Basophils (%) (Auto) 0 % (0-3) Neutrophils # (Auto) 7.1 x10^3/uL (1.8-7.7) Lymphocytes # (Auto) 1.2 x10^3/uL (1.0-4.8) Monocytes # (Auto) 0.5 x10^3/uL (0.0-1.1) Eosinophils # (Auto) 0.2 x10^3/uL (0.0-0.7) Basophils # (Auto) 0.0 x10^3/uL (0.0-0.2) Sodium Level 143 mmol/L (136-145) Potassium Level 4.1 mmol/L (3.5-5.1) Chloride Level 103 mmol/L (98-107) Carbon Dioxide Level 38 mmol/L (21-32) Anion Gap 2 (6-14) Blood Urea Nitrogen 25 mg/dL (7-20) Creatinine 0.6 mg/dL (0.6-1.0) Estimated GFR (Cockcroft-Gault) 106.3 Glucose Level 115 mg/dL (70-99) Calcium Level 8.5 mg/dL (8.5-10.1) Glucose (Fingerstick) 110 mg/dL (70-99) Laboratory Tests Test 09/01/19 11:37 09/01/19 18:00 09/02/19 00:49 09/02/19 06:40 Glucose (Fingerstick) 200 mg/dL (70-99) 174 mg/dL (70-99) 152 mg/dL (70-99) White Blood Count 9.0 x10^3/uL (4.0-11.0) Red Blood Count 2.56 x10^6/uL (3.50-5.40) Hemoglobin 7.2 g/dL (12.0-15.5) Hematocrit 22.8 % (36.0-47.0) Mean Corpuscular Volume 89 fL (79-100) Mean Corpuscular Hemoglobin 28 pg (25-35) Mean Corpuscular Hemoglobin Concent 32 g/dL (31-37) Red Cell Distribution Width 17.9 % (11.5-14.5) Platelet Count 489 x10^3/uL (140-400) Neutrophils (%) (Auto) 79 % (31-73) Lymphocytes (%) (Auto) 13 % (24-48) Monocytes (%) (Auto) 6 % (0-9) Eosinophils (%) (Auto) 2 % (0-3) Basophils (%) (Auto) 0 % (0-3) Neutrophils # (Auto) 7.1 x10^3/uL (1.8-7.7) Lymphocytes # (Auto) 1.2 x10^3/uL (1.0-4.8) Monocytes # (Auto) 0.5 x10^3/uL (0.0-1.1) Eosinophils # (Auto) 0.2 x10^3/uL (0.0-0.7) Basophils # (Auto) 0.0 x10^3/uL (0.0-0.2) Sodium Level 143 mmol/L (136-145) Potassium Level 4.1 mmol/L (3.5-5.1) Chloride Level 103 mmol/L (98-107) Carbon Dioxide Level 38 mmol/L (21-32) Anion Gap 2 (6-14) Blood Urea Nitrogen 25 mg/dL (7-20) Creatinine 0.6 mg/dL (0.6-1.0) Estimated GFR (Cockcroft-Gault) 106.3 Glucose Level 115 mg/dL (70-99) Calcium Level 8.5 mg/dL (8.5-10.1) Test 09/02/19 06:43 Glucose (Fingerstick) 110 mg/dL (70-99) Problem List Problems Medical Problems: (1) Acute pancreatitis Status: Acute (2) Cholelithiasis Status: Acute Assessment/Plan severe pancreatitis cont supportive care DAVON SIMMS MD September 02, 2019 08:51
--- NOTE | 2019-09-02 09:32 | PDOC ---
Infectious Disease Note Subjective Subjective feeling better says, awake nods appropriately off vent, trach o2 Vital Sign Vital Signs Vital Signs Date Time Temp Pulse Resp B/P (MAP) Pulse Ox O2 Delivery O2 Flow Rate FiO2 09/02/19 06:00 78 14 73/51 (58) 100 Nasal Cannula 5.0 09/02/19 04:00 98.3 98.3 Physical Exam PHYSICAL EXAM GENERAL: Up in chair very anxious extremely weak shaky probably confused but on Precedex HEENT: oral cavity dry, NGT NECK: Trach/vent LUNGS: Improved aeration has humidified O2 via trach shield HEART: S1, S2, regular ABDOMEN: Distended, hypoactive BS, tender, + drains x 3 : Lind (08/01) EXTREMITIES: Generalized edema, no cyanosis, SCDs bilaterally SKIN: Warm and dry. No generalized rash. TENNIS BALL COVER CEMENTER: Nodded some to couple questions PICC(08/17) clean Labs Lab Laboratory Tests Test 09/01/19 11:37 09/01/19 18:00 09/02/19 00:49 09/02/19 06:40 Glucose (Fingerstick) 200 mg/dL (70-99) 174 mg/dL (70-99) 152 mg/dL (70-99) White Blood Count 9.0 x10^3/uL (4.0-11.0) Red Blood Count 2.56 x10^6/uL (3.50-5.40) Hemoglobin 7.2 g/dL (12.0-15.5) Hematocrit 22.8 % (36.0-47.0) Mean Corpuscular Volume 89 fL (79-100) Mean Corpuscular Hemoglobin 28 pg (25-35) Mean Corpuscular Hemoglobin Concent 32 g/dL (31-37) Red Cell Distribution Width 17.9 % (11.5-14.5) Platelet Count 489 x10^3/uL (140-400) Neutrophils (%) (Auto) 79 % (31-73) Lymphocytes (%) (Auto) 13 % (24-48) Monocytes (%) (Auto) 6 % (0-9) Eosinophils (%) (Auto) 2 % (0-3) Basophils (%) (Auto) 0 % (0-3) Neutrophils # (Auto) 7.1 x10^3/uL (1.8-7.7) Lymphocytes # (Auto) 1.2 x10^3/uL (1.0-4.8) Monocytes # (Auto) 0.5 x10^3/uL (0.0-1.1) Eosinophils # (Auto) 0.2 x10^3/uL (0.0-0.7) Basophils # (Auto) 0.0 x10^3/uL (0.0-0.2) Sodium Level 143 mmol/L (136-145) Potassium Level 4.1 mmol/L (3.5-5.1) Chloride Level 103 mmol/L (98-107) Carbon Dioxide Level 38 mmol/L (21-32) Anion Gap 2 (6-14) Blood Urea Nitrogen 25 mg/dL (7-20) Creatinine 0.6 mg/dL (0.6-1.0) Estimated GFR (Cockcroft-Gault) 106.3 Glucose Level 115 mg/dL (70-99) Calcium Level 8.5 mg/dL (8.5-10.1) Test 09/02/19 06:43 Glucose (Fingerstick) 110 mg/dL (70-99) Micro Objective Assessment Fever - better currently - Abd distention - U/S and CT reviewed s/p 0.4 L of opaque, debris-containing ascites was removed 08/23 Acute pancreatitis with persistent necrosis - 08/14 status post KAYLIN drain placement + C paropsilosis. s/p additional drains 08/25 Anemia - S/p PRBCs Cholelithiasis with thickening of the gallbladder wall. Leucocytosis improving JUANA, hyperkalemia, Metabolic acidosis off dialysis Acute hypoxic resp failure ,bilateral pleural effusion and atelectasis hypocalcemia Prediabetes HTN s/p trach Plan Plan of Care , merrem 07/26 - Continue micafungin f/u cultures Maintain aspiration precaution Supportive care KIMMY JONES MD September 02, 2019 09:32
[2019-09-02] MEDS: BUMETANIDE 1 MG/4 ML VIAL. IV SCH (09:43)
--- NOTE | 2019-09-02 10:48 | PDOC ---
Objective: Objective: D/w nurse - stable, plans to get up to shower w/ therapy. Vital Signs: Vital Signs Date Time Temp Pulse Resp B/P (MAP) Pulse Ox O2 Delivery O2 Flow Rate FiO2 09/02/19 09:36 32 09/02/19 08:00 Nasal Cannula 5.0 09/02/19 08:00 97.5 88 109/69 (82) 100 97.5 Labs: Laboratory Tests Test 09/01/19 11:37 09/01/19 18:00 09/02/19 00:49 09/02/19 06:40 Glucose (Fingerstick) 200 mg/dL 174 mg/dL 152 mg/dL White Blood Count 9.0 x10^3/uL Red Blood Count 2.56 x10^6/uL Hemoglobin 7.2 g/dL Hematocrit 22.8 % Mean Corpuscular Volume 89 fL Mean Corpuscular Hemoglobin 28 pg Mean Corpuscular Hemoglobin Concent 32 g/dL Red Cell Distribution Width 17.9 % Platelet Count 489 x10^3/uL Neutrophils (%) (Auto) 79 % Lymphocytes (%) (Auto) 13 % Monocytes (%) (Auto) 6 % Eosinophils (%) (Auto) 2 % Basophils (%) (Auto) 0 % Neutrophils # (Auto) 7.1 x10^3/uL Lymphocytes # (Auto) 1.2 x10^3/uL Monocytes # (Auto) 0.5 x10^3/uL Eosinophils # (Auto) 0.2 x10^3/uL Basophils # (Auto) 0.0 x10^3/uL Sodium Level 143 mmol/L Potassium Level 4.1 mmol/L Chloride Level 103 mmol/L Carbon Dioxide Level 38 mmol/L Anion Gap 2 Blood Urea Nitrogen 25 mg/dL Creatinine 0.6 mg/dL Estimated GFR (Cockcroft-Gault) 106.3 Glucose Level 115 mg/dL Calcium Level 8.5 mg/dL Test 09/02/19 06:43 Glucose (Fingerstick) 110 mg/dL PE: GEN: NAD NEURO/PSYCH: sleeping, not awakened A/P: Gallstone pancreatitis, MOSF -- Continue same per GI. Hemodynamically unstable?: No Is patient in severe pain?: No Is NPO status required?: Yes CYNDEE FALCON September 02, 2019 10:48
--- NOTE | 2019-09-02 10:54 | PDOC ---
[facility] PROGRESS NOTE Chief Complaint Chief Complaint Acute hypoxic Respiratory failure requiring mechanical ventilation (now extubated for several days but still with tracheostomy) Tracheostomy bilateral pleural effusions/pulm edema Sepsis Severe Acute gallstone pancreatitis (not a surgical candidate at this time) with necrosis Acute kidney failure now requiring dialysis Salpingitis Gallstones (Calculus of gallbladder with acute cholecystitis without obstruc tion) HTN Leukocytosis Hypoxia Uterine fibroid Intractable pain Intractable nausea Covid 19 negative. Acute on chronic anemia EEG: No seizure activityFever - better currently - intermittent could be from underlying pancreatitis blood cults 08/21 - neg so far ? Ileus with vomiting Abd distention - U/S and CT reviewed s/p 0.4 L of opaque, debris-containing ascites was removed 08/23 Acute pancreatitis with persistent necrosis - 08/14 status post KAYLIN drain placement + C paropsilosis. s/p additional drains 08/25 Anemia - S/p PRBCs Cholelithiasis with thickening of the gallbladder wall. Leucocytosis improving JUANA, hyperkalemia, Metabolic acidosis off dialysis Acute hypoxic resp failure ,bilateral pleural effusion and atelectasis hypocalcemia Prediabetes HTN s/p trach ESRD on HD Hyperglycemia History of Present Illness History of Present Illness 09/02/2019 Patient seen and examined in the ICU She is resting comfortably but sedated Has O2 per nasal cannula Tracheostomy is clean She is on Precedex TPN and has an NG to suction Chart reviewed 09/01/2019 Patient seen and examined in the ICU She now has a speaking valve in her trach and is able to talk She is extremely weak and shaky Chart reviewed discussed with RN 08/31/2019 Patient seen and examined in the ICU She is up in the chair with O2 via trach shield Extremely anxious Cannot talk but is trying to write things to me although I cannot understand what she is writing Discussed with RN Chart reviewed Still on IV TPN Still extremely ill 08/30/2019 Patient seen and examined in the ICU She now has a trach shield Pleasantly confused but sedated with Precedex Chart reviewed Discussed with RN She has IV TPN Still very critically ill 08/29/2019 Patient seen and examined She remains on the vent but spontaneous respirations with 20 of pressure support and 30% FiO2 He still has NG to suction Appears extremely ill and weak and confused Has IV TPN Precedex antibiotics Lind is to bedside drainage She has SCDs and ProCare boots She is on IV meropenem and daptomycin and micafungin Chart reviewed Discussed with RN Patient is still critically ill Ms Diaz is a 48yo F w/ PMHx HTN, prediabetes who presented to the emergency room with complaints of abdominal pain on 07/04/2019. Found with Lipase 26541, AST 401, ALT 249, Bilirubin 1.4. CT abdomen confirms pancreatic inflammation, peripancreatic fluid and inflamm atory changes around the pancreas consistent with pancreatitis. Cholelithiasis and 1.4cm uterine fibroid as well as possible left salpingitis. Admitted for further care GI, General surgery, ID, Pulm consulted. 07/04: PICC placed per IR. Renal US negative. Started on levophed. Repeat CT abdomen w/ necrosis; 07/05: Dialysis catheter per nephrology; 07/06: On BiPAP; 07/07: BiPAP, dialysis; 07/08: Overnight Tmax 101.7 , still on BiPAP FiO2 40%, still on low dose Levophed gtt, TPN initiated. On dialysis 07/24: Tracheostomy; 07/30: S/p tracheostomy on vent spontaneous respirations with 5 of pressure support 35% FiO2, rectal tube and a Lind, off pressors; 08/01:Still on vent via trach. Removed PICC and CVC [facility]J and replaced. CT chest/abd/pelvis with bilateral pleural effusion and ascites. 08/02: Renal function stable. Still on vent. More interactive today. Miming wish for food. Plan discussed for thoracentesis/paracentesis with daughters today. They were under impression patient was doing worse due to a miscommunication which has been clarified over the phone. 4.3L removed. 08/04: Febrile overnight 101.8F. More interactive, still on vent. Asking for ice by miming; 08/05: Afebrile overnight. TMax last 24 hours 100.6F. Hb 7.1. Interactive when awake. 08/09: Transfusion 1u PRBC (6U total since admit) 08/10-08/13: TPN and precedex, vent. 08/14: Tmax 101F overnight. Hb 8.2. HD cath out since 08/11. Alert. On vent SIMV 35% FiO2. Surgery: ex-lap, no ronel or pancreatic necrosectomy 2/2 profound inflammation. 08/15: Seen POD #1. Afebrile overnight. BUN 62. CBC WNL today.Remains on vent via trach, TPN. Able to point today and indicate she wishes her daughters and Jamaal to be involved in her care. 08/16: Hb 7.4, Na 151. Remains on vent via trach, TPN. off HD for now. Not tolerating trach shield well. 08/17: Negative US for UE DVT. More relaxed today. Has some increase in UOP. Tolerating vent well. She is requesting to eat and drink via writing. T max 100F 24 hours ago, but 101F at 1200. Right PICC placed. [facility] 08/18: Na 153 today. Good UOP. Tmax 101F at 1200 on 08/17. She becomes a bit anxious and did not sleep much last night, wishes to try to sleep this morning 08/19: Able to speak well with speaking valve today. Na 153, K2.9, Mg 1.8, Cr 1. 100.4F axillary temp overnight. Asking for food. 08/20: Afebrile overnight. ABG with pH 7.27/75/123. Hb 7.1. Na 153. DIRECTOR OF CONSULTING SERVICES settings decreased 08/21: No acute events reported overnight, case discussed with nursing staff patient in no acute distress no complaints during my visit 08/22: Patient responding to verbal stimuli. She is saturating well and not requiring ventilation support, no acute events reported overnight seems to be slowly improving 08/23: Patient requiring transfusion of packed red blood cells due to anemia, no evidence of acute bleeding, appreciate GI databases computer consultant recommendations 08/24: Patient required ventilatory support given that she desaturated, she is lying in bed in mild distress, case discussed with nursing staff, no evidence of bleeding, h an h noted. 08/25: Underwent IR procedure as follows BRIEF OPERATIVE NOTE Pre-Op Diagnosis Pancreatitis with pseudocysts, suspected infection Post-Op Diagnosis same Procedure Performed CT abdominal Drains x 3 Surgeon Tesfaye Anesthesia Type: Conscious Sedation Findings 3 abdominal drains, 14F, with turbid pancreatic fluid and necrotic debris in each. Complications No immediate 08/26: Patient today somewhat restless and having bilious secretions from ET tube, imaging studies ordered, discussed with databases computer consultant. Pretty poor prognosis, hopefully is not a fistula, poor surgical candidate. 08/27: Imaging with no acute events, she seems more stable today compared to yesterday. Encouraged as much activity as possible patient at high risk for jayne re depression. Vitals/I&O Vitals/I&O: Vital Signs Date Time Temp Pulse Resp B/P (MAP) Pulse Ox O2 Delivery O2 Flow Rate FiO2 09/02/19 09:36 32 09/02/19 08:00 Nasal Cannula 5.0 09/02/19 08:00 97.5 88 109/69 (82) 100 97.5 I & O 09/01/19 09/01/19 09/02/19 15:00 23:00 07:00 Intake Total 300 ml 1234 ml 1111 ml Output Total 1590 ml 1080 ml 635 ml Balance -1290 ml 154 ml 476 ml Physical Exam Physical Exam: GENERAL: Resting with no apparent distress but sedated HEENT: oral cavity dry, NGT NECK: Trach/vent LUNGS: Improved aeration has humidified O2 via trach shield HEART: S1, S2, regular ABDOMEN: Distended, hypoactive BS, tender, + drains x 3 : Lind (08/01) EXTREMITIES: Generalized edema, no cyanosis, SCDs bilaterally SKIN: Warm and dry. No generalized rash. DIAGNOSTIC RADIOLOGIC TECHNOLOGIST: Resting PICC(08/17) clean General: No acute distress Heart: Regular rate, Normal S1, Normal S2, No murmurs, Gallops Lungs: Other (decrease bs) Abdomen: Soft, No tenderness, Other (drains in place) Extremities: No clubbing, No cyanosis, No edema, Normal pulses, No tenderness/swelling Skin: Other (warm, dry) Labs Labs: Laboratory Tests Test 09/01/19 11:37 09/01/19 18:00 09/02/19 00:49 09/02/19 06:40 Glucose (Fingerstick) 200 mg/dL (70-99) 174 mg/dL (70-99) 152 mg/dL (70-99) White Blood Count 9.0 x10^3/uL (4.0-11.0) Red Blood Count 2.56 x10^6/uL (3.50-5.40) Hemoglobin 7.2 g/dL (12.0-15.5) Hematocrit 22.8 % (36.0-47.0) Mean Corpuscular Volume 89 fL (79-100) Mean Corpuscular Hemoglobin 28 pg (25-35) Mean Corpuscular Hemoglobin Concent 32 g/dL (31-37) Red Cell Distribution Width 17.9 % (11.5-14.5) Platelet Count 489 x10^3/uL (140-400) Neutrophils (%) (Auto) 79 % (31-73) Lymphocytes (%) (Auto) 13 % (24-48) Monocytes (%) (Auto) 6 % (0-9) Eosinophils (%) (Auto) 2 % (0-3) Basophils (%) (Auto) 0 % (0-3) Neutrophils # (Auto) 7.1 x10^3/uL (1.8-7.7) Lymphocytes # (Auto) 1.2 x10^3/uL (1.0-4.8) Monocytes # (Auto) 0.5 x10^3/uL (0.0-1.1) Eosinophils # (Auto) 0.2 x10^3/uL (0.0-0.7) Basophils # (Auto) 0.0 x10^3/uL (0.0-0.2) Sodium Level 143 mmol/L (136-145) Potassium Level 4.1 mmol/L (3.5-5.1) Chloride Level 103 mmol/L (98-107) Carbon Dioxide Level 38 mmol/L (21-32) Anion Gap 2 (6-14) Blood Urea Nitrogen 25 mg/dL (7-20) Creatinine 0.6 mg/dL (0.6-1.0) Estimated GFR (Cockcroft-Gault) 106.3 Glucose Level 115 mg/dL (70-99) Calcium Level 8.5 mg/dL (8.5-10.1) Test 09/02/19 06:43 Glucose (Fingerstick) 110 mg/dL (70-99) Review of Systems Review of Systems: Unable to obtain Assessment and Plan Assessmemt and Plan Problems Medical Problems: (1) Acute pancreatitis Status: Acute (2) Cholelithiasis Status: Acute Acute hypoxic Respiratory failure requiring mechanical ventilation (on vent since 07/10) Tracheostomy bilateral pleural effusions/pulm edema Sepsis Severe Acute gallstone pancreatitis (not a surgical candidate at this time) with necrosis Acute kidney failure now requiring dialysis Salpingitis Gallstones (Calculus of gallbladder with acute cholecystitis without obstructi on) HTN Leukocytosis Hypoxia Uterine fibroid Intractable pain Intractable nausea Covid 19 negative. Acute on chronic anemia EEG: No seizure activityFever - better currently - intermittent could be from underlying pancreatitis blood cults 08/21 - neg so far ? Ileus with vomiting Abd distention - U/S and CT reviewed s/p 0.4 L of opaque, debris-containing ascites was removed 08/23 Acute pancreatitis with persistent necrosis - 08/14 status post KAYLIN drain placement + C paropsilosis. s/p additional drains 08/25 Anemia - S/p PRBCs Cholelithiasis with thickening of the gallbladder wall. Leucocytosis improving JUANA, hyperkalemia, Metabolic acidosis off dialysis Acute hypoxic resp failure ,bilateral pleural effusion and atelectasis hypocalcemia Prediabetes HTN s/p trach ESRD on HD Hyperglycemia Plan ICU monitoring Wound care Humidified O2 via nasal cannula for now but we can use trach shield as backup NG suctioning Continue IV antibiotics and micafungin Sedation with Precedex TPN protocol Continue Lind to bedside drainage Tracheostomy care Hope to eventually move towards decannulation (we have a speaking valve for now) Trend labs Appreciate subspecialist input She is critically ill Total time 31-minute Comment Review of Relevant I have reviewed the following items kolby (where applicable) has been applied. Medications: Current Medications Medications (Trade) Dose Ordered Sig/Yvon Route PRN Reason Start Time Stop Time Status Last Admin Dose Admin Potassium Chloride/Water 100 ml @ 100 mls/hr 1X ONCE IV 09/01/19 11:00 09/01/19 11:59 DC 09/01/19 11:34 Potassium Chloride 90 meq/ Magnesium Sulfate 20 meq/ Multivitamins 10 ml/Chromium/ Copper/Manganese/ Seleni/Zn 1 ml/ Insulin Human Regular 15 unit/ Total Parenteral Nutrition/Amino Acids/Dextrose/ Fat Emulsion Intravenous 1,920 ml @ 80 mls/hr TPN CONT IV 09/01/19 22:00 09/02/19 21:59 09/01/19 22:57 Hemodynamically unstable?: No Is patient in severe pain?: No Is NPO status required?: Yes BEBO KIRBY III DO September 02, 2019 10:54
[2019-09-02] MEDS: MICAFUNGIN 100 MG in IV DEXTROSE 5% 100ML 100 ML IV SCH (11:08)
--- NOTE | 2019-09-02 11:21 | PDOC ---
PULMONARY PROGRESS NOTES Subjective Patient intubated on 07/10 , s/p trach 4/6, awake alert follows commands placed on cap trach s/p left tap 08/29 , 3litres removed Vitals Vital Signs Date Time Temp Pulse Resp B/P (MAP) Pulse Ox O2 Delivery O2 Flow Rate FiO2 09/02/19 09:36 32 09/02/19 08:00 Nasal Cannula 5.0 09/02/19 08:00 97.5 88 109/69 (82) 100 97.5 ROS: No Chest Pain, No Abdominal Pain, No Increase Cough General: Alert, No acute distress Lungs: Other (decrease bs) Cardiovascular: S1, S2 Abdomen: Soft, Non-tender, Other Neuro Exam: Alert Extremities: Other (+3 generalized edema ) Skin: Warm, Dry Labs Laboratory Tests Test 08/31/19 17:29 08/31/19 23:35 09/01/19 05:45 09/01/19 06:05 Glucose (Fingerstick) 180 mg/dL (70-99) 164 mg/dL (70-99) 143 mg/dL (70-99) White Blood Count 10.5 x10^3/uL (4.0-11.0) Red Blood Count 2.73 x10^6/uL (3.50-5.40) Hemoglobin 7.7 g/dL (12.0-15.5) Hematocrit 24.2 % (36.0-47.0) Mean Corpuscular Volume 89 fL (79-100) Mean Corpuscular Hemoglobin 28 pg (25-35) Mean Corpuscular Hemoglobin Concent 32 g/dL (31-37) Red Cell Distribution Width 17.9 % (11.5-14.5) Platelet Count 521 x10^3/uL (140-400) Neutrophils (%) (Auto) 80 % (31-73) Lymphocytes (%) (Auto) 13 % (24-48) Monocytes (%) (Auto) 6 % (0-9) Eosinophils (%) (Auto) 2 % (0-3) Basophils (%) (Auto) 0 % (0-3) Neutrophils # (Auto) 8.4 x10^3/uL (1.8-7.7) Lymphocytes # (Auto) 1.4 x10^3/uL (1.0-4.8) Monocytes # (Auto) 0.6 x10^3/uL (0.0-1.1) Eosinophils # (Auto) 0.2 x10^3/uL (0.0-0.7) Basophils # (Auto) 0.0 x10^3/uL (0.0-0.2) Sodium Level 142 mmol/L (136-145) Potassium Level 3.4 mmol/L (3.5-5.1) Chloride Level 104 mmol/L (98-107) Carbon Dioxide Level 34 mmol/L (21-32) Anion Gap 4 (6-14) Blood Urea Nitrogen 24 mg/dL (7-20) Creatinine 0.5 mg/dL (0.6-1.0) Estimated GFR (Cockcroft-Gault) 131.1 Glucose Level 151 mg/dL (70-99) Calcium Level 8.4 mg/dL (8.5-10.1) Phosphorus Level 3.9 mg/dL (2.6-4.7) Magnesium Level 1.9 mg/dL (1.8-2.4) Test 09/01/19 11:37 09/01/19 18:00 09/02/19 00:49 09/02/19 06:40 Glucose (Fingerstick) 200 mg/dL (70-99) 174 mg/dL (70-99) 152 mg/dL (70-99) White Blood Count 9.0 x10^3/uL (4.0-11.0) Red Blood Count 2.56 x10^6/uL (3.50-5.40) Hemoglobin 7.2 g/dL (12.0-15.5) Hematocrit 22.8 % (36.0-47.0) Mean Corpuscular Volume 89 fL (79-100) Mean Corpuscular Hemoglobin 28 pg (25-35) Mean Corpuscular Hemoglobin Concent 32 g/dL (31-37) Red Cell Distribution Width 17.9 % (11.5-14.5) Platelet Count 489 x10^3/uL (140-400) Neutrophils (%) (Auto) 79 % (31-73) Lymphocytes (%) (Auto) 13 % (24-48) Monocytes (%) (Auto) 6 % (0-9) Eosinophils (%) (Auto) 2 % (0-3) Basophils (%) (Auto) 0 % (0-3) Neutrophils # (Auto) 7.1 x10^3/uL (1.8-7.7) Lymphocytes # (Auto) 1.2 x10^3/uL (1.0-4.8) Monocytes # (Auto) 0.5 x10^3/uL (0.0-1.1) Eosinophils # (Auto) 0.2 x10^3/uL (0.0-0.7) Basophils # (Auto) 0.0 x10^3/uL (0.0-0.2) Sodium Level 143 mmol/L (136-145) Potassium Level 4.1 mmol/L (3.5-5.1) Chloride Level 103 mmol/L (98-107) Carbon Dioxide Level 38 mmol/L (21-32) Anion Gap 2 (6-14) Blood Urea Nitrogen 25 mg/dL (7-20) Creatinine 0.6 mg/dL (0.6-1.0) Estimated GFR (Cockcroft-Gault) 106.3 Glucose Level 115 mg/dL (70-99) Calcium Level 8.5 mg/dL (8.5-10.1) Test 09/02/19 06:43 Glucose (Fingerstick) 110 mg/dL (70-99) Laboratory Tests Test 09/01/19 11:37 09/01/19 18:00 09/02/19 00:49 09/02/19 06:40 Glucose (Fingerstick) 200 mg/dL (70-99) 174 mg/dL (70-99) 152 mg/dL (70-99) White Blood Count 9.0 x10^3/uL (4.0-11.0) Red Blood Count 2.56 x10^6/uL (3.50-5.40) Hemoglobin 7.2 g/dL (12.0-15.5) Hematocrit 22.8 % (36.0-47.0) Mean Corpuscular Volume 89 fL (79-100) Mean Corpuscular Hemoglobin 28 pg (25-35) Mean Corpuscular Hemoglobin Concent 32 g/dL (31-37) Red Cell Distribution Width 17.9 % (11.5-14.5) Platelet Count 489 x10^3/uL (140-400) Neutrophils (%) (Auto) 79 % (31-73) Lymphocytes (%) (Auto) 13 % (24-48) Monocytes (%) (Auto) 6 % (0-9) Eosinophils (%) (Auto) 2 % (0-3) Basophils (%) (Auto) 0 % (0-3) Neutrophils # (Auto) 7.1 x10^3/uL (1.8-7.7) Lymphocytes # (Auto) 1.2 x10^3/uL (1.0-4.8) Monocytes # (Auto) 0.5 x10^3/uL (0.0-1.1) Eosinophils # (Auto) 0.2 x10^3/uL (0.0-0.7) Basophils # (Auto) 0.0 x10^3/uL (0.0-0.2) Sodium Level 143 mmol/L (136-145) Potassium Level 4.1 mmol/L (3.5-5.1) Chloride Level 103 mmol/L (98-107) Carbon Dioxide Level 38 mmol/L (21-32) Anion Gap 2 (6-14) Blood Urea Nitrogen 25 mg/dL (7-20) Creatinine 0.6 mg/dL (0.6-1.0) Estimated GFR (Cockcroft-Gault) 106.3 Glucose Level 115 mg/dL (70-99) Calcium Level 8.5 mg/dL (8.5-10.1) Test 09/02/19 06:43 Glucose (Fingerstick) 110 mg/dL (70-99) Medications Active Scripts Medications Dose Route/Sig Max Daily Dose Days Date Category Bisoprolol Fumarate 5 Mg Tablet 10 Mg PO DAILY 07/04/19 Reported Comments CXR 08/30/2019 persistent moderate effusions Impression . IMPRESSION: 1. Acute hypoxemic respiratory failure secondary to ARDS status post trach, 2. Gallstone pancreatitis 3. Severe metabolic acidosis.stable 4. Acute kidney injury-stable, Off HD-- continue to improve 5. Acute gallstone pancreatitis. 6. Hypoalbuminemia. 7. Moderate persistent effusions, s/p left thora 08/29 8. Fever- Per ID, per surgery--resolved 9. Chronic anemia 10. Covid 19 testing negative 11. Moderate to large ascites-S/P paracentisis 12.S/P paracentisis with 4 liters removed on 08/03/19 13. S/P IR drain placement on 08/26/2019 Plan . d/w IR , s/p thoracentesis, 08/29, 3 litres removed TS all day wit hprn capping Follow surgery recs-- S/P 3 drain placed in IR on 08/26/2019 Follow ID recs for ABX Follow nephrology recs Continue TPN DVT/GI PPX: heparin SQ/ protonix D/W RN and RT CODE:FULL VINAYAK LANDRUM MD September 02, 2019 11:21
[2019-09-02] MEDS: TPN PER PHARMACY MC PRN (12:34)
--- NOTE | 2019-09-02 12:34 | NUR ---
Pharmacy TPN Dosing Note S: SCOTT AVILA is a 48 year old F Currently receiving Central Continuous TPN started 07/06/19 B:Pertinent PMH: Necrotizing pancreatitis Height: 5 feet, 8 inches Weight: [id number] kg Current diet: NPO LABS: Sodium: 143 Potassium: 4.1 Chloride: 103 Calcium: 8.5 Corrected Calcium: 10.26 Magnesium: 1.9 CO2: 38 SCr: 0.6 Glucose: 110-208 Albumin: 1.8 AST: 50 ALT: 50 TPN FORMULA: TPN TYPE: Central Continuous AMINO ACIDS: 90 gm DEXTROSE: 250 gm LIPIDS: 30 gm POTASSIUM CHLORIDE: 90 mEq MAGNESIUM: 20 mEq INSULIN: 15 units MULTIPLE VITAMIN: 10 ml TRACE ELEMENTS: 0.5 ml(s) TPN PLAN: K normalized. Increased macros per RD recommendations. BG variable- will cont insulin dose as is with dextrose increase. -No labs ordered as they have been stable. R: Change TPN as noted above. Will monitor electrolytes, glucose, and tolerance to TPN. MIKAYLA CHU [facility], 09/02/19 [id number]
[2019-09-02] MEDS: IV NORMAL SALINE 1000ML BAG 1,000 ML IV SCH (13:37)
--- NOTE | 2019-09-02 16:02 | NUR ---
SS following for discharge planning. SS reviewed pt chart and discussed with RNNorma. Pt remains on trach collar. Pt has cap on speaking valve. Pt NPO and has NG tube and TPN. Pt has KAYLIN drains times four. Pt moving more with PT/OT. Pt was able to get to shower today with PT/OT and has been up in chair. SS will continue to follow for discharge planning.
[2019-09-02] MEDS ORDERED: [UNRECOGNIZED DRUG - OTHER] IV SCH ×8 (22:00)
[2019-09-02] MEDS ORDERED: TOTAL PARENTERAL NUTRITION IV SCH ×8 (22:00)
[2019-09-02] MEDS ORDERED: DEXTROSE 70% IV SCH ×8 (22:00)
[2019-09-02] MEDS ORDERED: AMINO ACID IV SCH ×8 (22:00)
[2019-09-03] VITALS (23 sets, daily range): BP systolic 77–195; BP diastolic 44–98
[2019-09-03] MEDS: INSULIN LISPRO 300 UNITS/3 ML VIAL. SQ SCH ×4 (01:19→17:53)
[2019-09-03] MEDS: DEXMEDETOMIDINE 400 MCG in IV NORMAL SALINE 100ML 96 ML IV PRN ×6 (01:46→21:38)
[2019-09-03] MEDS: HYDROmorphone 2 MG/ML VIAL IVP PRN ×4 (04:41→21:46)
[2019-09-03 06:00] LABS: BASO % 0 % (0-3); EOS # 0.1 x10^3/uL (0.0-0.7); EOS % 1 % (0-3); HEMATOCRIT 23.6 % (36.0-47.0); HEMOGLOBIN 7.5 g/dL (12.0-15.5); LYMPH % 9 % (24-48); MEAN CORPUSCULAR HEMOGLOBIN 28 pg (25-35); MEAN CORPUSCULAR HGB CONC 32 g/dL (31-37); MEAN CORPUSCULAR VOLUME 89 fL (79-100); MONO # 0.6 x10^3/uL (0.0-1.1); MONO % 5 % (0-9); NEUT # 9.5 x10^3/uL (1.8-7.7); NEUT % 84 % (31-73); PLATELET COUNT 524 x10^3/uL (140-400); RED BLOOD COUNT 2.65 x10^6/uL (3.50-5.40); RED CELL DISTRIBUTION WIDTH 18.1 % (11.5-14.5); WHITE BLOOD COUNT 11.3 x10^3/uL (4.0-11.0)
--- NOTE | 2019-09-03 06:24 | PDOC ---
PULMONARY PROGRESS NOTES Subjective Patient intubated on 07/10 , s/p trach 4/6, awake alert follows commands, small trach secretion, trach capped for 48 hrs placed on cap trach s/p left tap 08/29 , 3litres removed Vitals Vital Signs Date Time Temp Pulse Resp B/P (MAP) Pulse Ox O2 Delivery O2 Flow Rate FiO2 09/03/19 06:00 85 14 81/44 (56) 99 Nasal Cannula 2.0 09/03/19 04:00 98.3 98.3 ROS: No Chest Pain, No Abdominal Pain, No Increase Cough General: Alert, No acute distress HEENT: Other (nc at perrl neck trach site ok no lad no thyromegaly) Lungs: Other (decrease bs) Cardiovascular: S1, S2 Abdomen: Soft, Non-tender, Other Neuro Exam: Alert Extremities: Other (+3 generalized edema ) Skin: Warm, Dry Labs Laboratory Tests Test 09/01/19 11:37 09/01/19 18:00 09/02/19 00:49 09/02/19 06:40 Glucose (Fingerstick) 200 mg/dL (70-99) 174 mg/dL (70-99) 152 mg/dL (70-99) White Blood Count 9.0 x10^3/uL (4.0-11.0) Red Blood Count 2.56 x10^6/uL (3.50-5.40) Hemoglobin 7.2 g/dL (12.0-15.5) Hematocrit 22.8 % (36.0-47.0) Mean Corpuscular Volume 89 fL (79-100) Mean Corpuscular Hemoglobin 28 pg (25-35) Mean Corpuscular Hemoglobin Concent 32 g/dL (31-37) Red Cell Distribution Width 17.9 % (11.5-14.5) Platelet Count 489 x10^3/uL (140-400) Neutrophils (%) (Auto) 79 % (31-73) Lymphocytes (%) (Auto) 13 % (24-48) Monocytes (%) (Auto) 6 % (0-9) Eosinophils (%) (Auto) 2 % (0-3) Basophils (%) (Auto) 0 % (0-3) Neutrophils # (Auto) 7.1 x10^3/uL (1.8-7.7) Lymphocytes # (Auto) 1.2 x10^3/uL (1.0-4.8) Monocytes # (Auto) 0.5 x10^3/uL (0.0-1.1) Eosinophils # (Auto) 0.2 x10^3/uL (0.0-0.7) Basophils # (Auto) 0.0 x10^3/uL (0.0-0.2) Sodium Level 143 mmol/L (136-145) Potassium Level 4.1 mmol/L (3.5-5.1) Chloride Level 103 mmol/L (98-107) Carbon Dioxide Level 38 mmol/L (21-32) Anion Gap 2 (6-14) Blood Urea Nitrogen 25 mg/dL (7-20) Creatinine 0.6 mg/dL (0.6-1.0) Estimated GFR (Cockcroft-Gault) 106.3 Glucose Level 115 mg/dL (70-99) Calcium Level 8.5 mg/dL (8.5-10.1) Test 09/02/19 06:43 09/02/19 12:11 09/02/19 17:59 09/03/19 01:15 Glucose (Fingerstick) 110 mg/dL (70-99) 208 mg/dL (70-99) 130 mg/dL (70-99) 153 mg/dL (70-99) Test 09/03/19 05:54 Glucose (Fingerstick) 119 mg/dL (70-99) Laboratory Tests Test 09/02/19 06:40 09/02/19 06:43 09/02/19 12:11 09/02/19 17:59 White Blood Count 9.0 x10^3/uL (4.0-11.0) Red Blood Count 2.56 x10^6/uL (3.50-5.40) Hemoglobin 7.2 g/dL (12.0-15.5) Hematocrit 22.8 % (36.0-47.0) Mean Corpuscular Volume 89 fL (79-100) Mean Corpuscular Hemoglobin 28 pg (25-35) Mean Corpuscular Hemoglobin Concent 32 g/dL (31-37) Red Cell Distribution Width 17.9 % (11.5-14.5) Platelet Count 489 x10^3/uL (140-400) Neutrophils (%) (Auto) 79 % (31-73) Lymphocytes (%) (Auto) 13 % (24-48) Monocytes (%) (Auto) 6 % (0-9) Eosinophils (%) (Auto) 2 % (0-3) Basophils (%) (Auto) 0 % (0-3) Neutrophils # (Auto) 7.1 x10^3/uL (1.8-7.7) Lymphocytes # (Auto) 1.2 x10^3/uL (1.0-4.8) Monocytes # (Auto) 0.5 x10^3/uL (0.0-1.1) Eosinophils # (Auto) 0.2 x10^3/uL (0.0-0.7) Basophils # (Auto) 0.0 x10^3/uL (0.0-0.2) Sodium Level 143 mmol/L (136-145) Potassium Level 4.1 mmol/L (3.5-5.1) Chloride Level 103 mmol/L (98-107) Carbon Dioxide Level 38 mmol/L (21-32) Anion Gap 2 (6-14) Blood Urea Nitrogen 25 mg/dL (7-20) Creatinine 0.6 mg/dL (0.6-1.0) Estimated GFR (Cockcroft-Gault) 106.3 Glucose Level 115 mg/dL (70-99) Calcium Level 8.5 mg/dL (8.5-10.1) Glucose (Fingerstick) 110 mg/dL (70-99) 208 mg/dL (70-99) 130 mg/dL (70-99) Test 09/03/19 01:15 09/03/19 05:54 Glucose (Fingerstick) 153 mg/dL (70-99) 119 mg/dL (70-99) Medications Active Scripts Medications Dose Route/Sig Max Daily Dose Days Date Category Bisoprolol Fumarate 5 Mg Tablet 10 Mg PO DAILY 07/04/19 Reported Comments CXR reviewed. Impression . IMPRESSION: 1. Acute hypoxemic respiratory failure secondary to ARDS status post trach, 2. Gallstone pancreatitis 3. Severe metabolic acidosis.stable 4. Acute kidney injury-stable, Off HD-- continue to improve 5. Acute gallstone pancreatitis. 6. Hypoalbuminemia. 7. Moderate persistent effusions, s/p left thora 08/29 8. Fever- Per ID, per surgery--resolved 9. Chronic anemia 10. Covid 19 testing negative 11. Moderate to large ascites-S/P paracentisis 12.S/P paracentisis with 4 liters removed on 08/03/19 13. S/P IR drain placement on 08/26/2019 Plan . s/p thoracentesis, 08/29, 3 litres removed cap trach as tolerated Follow surgery recs-- S/P 3 drain placed in IR on 08/26/2019 Follow ID recs for ABX Follow nephrology recs Continue TPN DVT/GI PPX: heparin SQ/ protonix D/W RN and RT, pt CODE:FULL TEN WHITFIELD MD September 03, 2019 06:24
[2019-09-03] MEDS: MEROPENEM 1 GM in IV NORMAL SALINE 100ML 100 ML IV SCH ×3 (06:46→21:38)
--- NOTE | 2019-09-03 07:40 | PDOC ---
Infectious Disease Note Subjective Subjective feeling better says occ nausea and min pain Wants to drink, states had a BM Walked yesterday Still distended but less off vent, trach o2 ROS ROS o/w neg Vital Sign Vital Signs Vital Signs Date Time Temp Pulse Resp B/P (MAP) Pulse Ox O2 Delivery O2 Flow Rate FiO2 09/03/19 06:00 85 14 81/44 (56) 99 Nasal Cannula 2.0 09/03/19 04:00 98.3 98.3 Physical Exam PHYSICAL EXAM GENERAL: NAD and alert HEENT: oral cavity dry, NGT NECK: Trach/vent - capped LUNGS: Improved aeration has humidified O2 via trach shield HEART: S1, S2, regular ABDOMEN: Less Distended, hypoactive BS, tender, + drains x 3 : Lind (08/01) EXTREMITIES: Generalized edema, no cyanosis, SCDs bilaterally SKIN: Warm and dry. No generalized rash. REIMBURSEMENT REP: Alert and answering questions PICC(08/17) clean Labs Lab Laboratory Tests Test 09/02/19 12:11 09/02/19 17:59 09/03/19 01:15 09/03/19 05:45 Glucose (Fingerstick) 208 mg/dL (70-99) 130 mg/dL (70-99) 153 mg/dL (70-99) White Blood Count 11.3 x10^3/uL (4.0-11.0) Red Blood Count 2.65 x10^6/uL (3.50-5.40) Hemoglobin 7.5 g/dL (12.0-15.5) Hematocrit 23.6 % (36.0-47.0) Mean Corpuscular Volume 89 fL (79-100) Mean Corpuscular Hemoglobin 28 pg (25-35) Mean Corpuscular Hemoglobin Concent 32 g/dL (31-37) Red Cell Distribution Width 18.1 % (11.5-14.5) Platelet Count 524 x10^3/uL (140-400) Neutrophils (%) (Auto) 84 % (31-73) Lymphocytes (%) (Auto) 9 % (24-48) Monocytes (%) (Auto) 5 % (0-9) Eosinophils (%) (Auto) 1 % (0-3) Basophils (%) (Auto) 0 % (0-3) Neutrophils # (Auto) 9.5 x10^3/uL (1.8-7.7) Lymphocytes # (Auto) 1.0 x10^3/uL (1.0-4.8) Monocytes # (Auto) 0.6 x10^3/uL (0.0-1.1) Eosinophils # (Auto) 0.1 x10^3/uL (0.0-0.7) Basophils # (Auto) 0.0 x10^3/uL (0.0-0.2) Test 09/03/19 05:54 Glucose (Fingerstick) 119 mg/dL (70-99) Micro U/S 08/21 IMPRESSION: Complex fluid collections within the right and lower quadrants. The abdominal visceral and vascular structures are not formally assessed on this exam. CT Scan 08/21 IMPRESSION: 1. Findings consistent with sequelae of severe acute pancreatitis with enlarging peripancreatic and intra-abdominal fluid collections as described 2. Interval placement of a drain in the ventral abdominal wall with and partial evacuation of the ventral extraperitoneal fluid collection previously evident. 08/14 Operative Note: After obtaining informed consent, patient was taken to OR, induced under GETA and prepped in the usual fashion. 5 mm port placed umbilical and right mid abdomen, all under laparoscopic guidance. Large amount of ascites encountered and aspirated off. Fluid was clear with some whitish debris. Viscera was completely locked in with obliteration of all planes, preventing any significant exploration. Copious irrigation. Given patient's overall clinical improvement, favor against open procedure and attempt at cholecystectomy and/or necrosectomy, given high risk of complications. Cholecystectomy will need to be performed, but favor waiting 3 months. 19 KAYLIN drain placed and secured with 3 0 nylon. Skin repaired with 4 0 monocryl. Dressing placed. Patient tolerated procedure well and sent to PACU in stable condition. All counts correct. Wound class is 4. CT Chest Abd/pelv 08/01 CT CHEST: CT scan the chest was done without contrast. There is a tracheostomy tube in good position. There are large bilateral pleural effusions. There is atelectasis in both lung bases. There is no mediastinal adenopathy. Right arm PICC line extends to the superior vena cava. There is a temporary dialysis catheter extending to the vena cava near the atrium. IMPRESSION: 1. Large bilateral effusions. 2. Atelectasis of both lungs. End impression CT abdomen pelvis CT scan the abdomen pelvis was done following CT chest with contrast. NG tube extends into the stomach. Spleen is normal. There is no mass or hydronephrosis in the kidneys. There is a gallstone the gallbladder. A focal liver lesion is not identified. There is diffuse necrosis of the pancreas. There is peripancreatic fluid. The pattern is similar to the recent study. There is fluid in the paracolic gutters. There is retroperitoneal fluid surrounding the kidneys. Ascites extends into the pelvis. Ascites is similar to the prior study. There is no bowel obstruction. There is no free air. IMPRESSION: 1. Diffuse pancreatic necrosis. 2. A extensive retroperitoneal fluid and inflammation. 3. Cholelithiasis. 4. Moderate to large volume ascites with little change. CT A/P, 07/27 IMPRESSION: 1. Increased ascites. 2. 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 Cholelithiasis with thickening of the gallbladder wall. 4. Persistent pleural effusions and atelectasis in the lung bases. Objective Assessment Mild Leukocytosis but clinically looks well Fever - better currently - intermittent could be from underlying pancreatitis blood cults 08/21 - neg so far ? Ileus with vomiting Abd distention - U/S and CT reviewed s/p 0.4 L of opaque, debris-containing ascites was removed 08/23 S/p thoracenteis 08/29 Acute pancreatitis with persistent necrosis CT a/p 07/27 Increased ascites. Persistent evidence of necrotizing pancreatitis with fluid and phlegmon at the pancreas 08/14 status post KAYLIN drain placement - C paropsilosis on cult and 08/23; Cult line tip 08/17 - neg Anemia - S/p PRBCs Cholelithiasis with thickening of the gallbladder wall. Leucocytosis improving JUANA,Hyperkalemia, Metabolic acidosis off dialysis Acute hypoxic resp failure ,bilateral pleural effusion and atelectasis hypocalcemia Prediabetes HTN s/p trach Plan Plan of Care Cont merrem 07/26 - wean soon Continue micafungin Labs in am f/u cultures Maintain aspiration precaution Supportive care WILLY BARAKAT MD September 03, 2019 07:40
[2019-09-03] MEDS: PANTOPRAZOLE IV PUSH 40 MG VIAL. IVP SCH (08:56)
[2019-09-03] MEDS: BUMETANIDE 1 MG/4 ML VIAL. IV SCH (08:57)
--- NOTE | 2019-09-03 09:05 | PDOC ---
PROGRESS NOTES Subjective Subjective pt resting quietly, awakens but appears tired Objective Objective Vital Signs Date Time Temp Pulse Resp B/P (MAP) Pulse Ox O2 Delivery O2 Flow Rate FiO2 09/03/19 08:00 97 18 116/58 (77) 99 Nasal Cannula 2.0 09/03/19 04:00 98.3 98.3 Intake and Output 09/03/19 07:00 Intake Total 1252 ml Output Total 4605 ml Balance -3353 ml Intake Oral 0 ml IV Total 1252 ml Output Urine Total 3910 ml Gastric Drainage Total 150 ml Drainage Total 545 ml Physical Exam Physical Exam abdomen mildly distended, drains in place, doesn't appear tender Assessment Assessment Problems Medical Problems: (1) Acute pancreatitis Status: Acute (2) Cholelithiasis Status: Acute Plan Plan of Care Supportive care, no new surgical plans Comment Review of Relevant I have reviewed the following items kolby (where applicable) has been applied. Labs Laboratory Tests Test 09/01/19 11:37 09/01/19 18:00 09/02/19 00:49 09/02/19 06:40 Glucose (Fingerstick) 200 mg/dL (70-99) 174 mg/dL (70-99) 152 mg/dL (70-99) White Blood Count 9.0 x10^3/uL (4.0-11.0) Red Blood Count 2.56 x10^6/uL (3.50-5.40) Hemoglobin 7.2 g/dL (12.0-15.5) Hematocrit 22.8 % (36.0-47.0) Mean Corpuscular Volume 89 fL (79-100) Mean Corpuscular Hemoglobin 28 pg (25-35) Mean Corpuscular Hemoglobin Concent 32 g/dL (31-37) Red Cell Distribution Width 17.9 % (11.5-14.5) Platelet Count 489 x10^3/uL (140-400) Neutrophils (%) (Auto) 79 % (31-73) Lymphocytes (%) (Auto) 13 % (24-48) Monocytes (%) (Auto) 6 % (0-9) Eosinophils (%) (Auto) 2 % (0-3) Basophils (%) (Auto) 0 % (0-3) Neutrophils # (Auto) 7.1 x10^3/uL (1.8-7.7) Lymphocytes # (Auto) 1.2 x10^3/uL (1.0-4.8) Monocytes # (Auto) 0.5 x10^3/uL (0.0-1.1) Eosinophils # (Auto) 0.2 x10^3/uL (0.0-0.7) Basophils # (Auto) 0.0 x10^3/uL (0.0-0.2) Sodium Level 143 mmol/L (136-145) Potassium Level 4.1 mmol/L (3.5-5.1) Chloride Level 103 mmol/L (98-107) Carbon Dioxide Level 38 mmol/L (21-32) Anion Gap 2 (6-14) Blood Urea Nitrogen 25 mg/dL (7-20) Creatinine 0.6 mg/dL (0.6-1.0) Estimated GFR (Cockcroft-Gault) 106.3 Glucose Level 115 mg/dL (70-99) Calcium Level 8.5 mg/dL (8.5-10.1) Test 09/02/19 06:43 09/02/19 12:11 09/02/19 17:59 09/03/19 01:15 Glucose (Fingerstick) 110 mg/dL (70-99) 208 mg/dL (70-99) 130 mg/dL (70-99) 153 mg/dL (70-99) Test 09/03/19 05:45 09/03/19 05:54 White Blood Count 11.3 x10^3/uL (4.0-11.0) Red Blood Count 2.65 x10^6/uL (3.50-5.40) Hemoglobin 7.5 g/dL (12.0-15.5) Hematocrit 23.6 % (36.0-47.0) Mean Corpuscular Volume 89 fL (79-100) Mean Corpuscular Hemoglobin 28 pg (25-35) Mean Corpuscular Hemoglobin Concent 32 g/dL (31-37) Red Cell Distribution Width 18.1 % (11.5-14.5) Platelet Count 524 x10^3/uL (140-400) Neutrophils (%) (Auto) 84 % (31-73) Lymphocytes (%) (Auto) 9 % (24-48) Monocytes (%) (Auto) 5 % (0-9) Eosinophils (%) (Auto) 1 % (0-3) Basophils (%) (Auto) 0 % (0-3) Neutrophils # (Auto) 9.5 x10^3/uL (1.8-7.7) Lymphocytes # (Auto) 1.0 x10^3/uL (1.0-4.8) Monocytes # (Auto) 0.6 x10^3/uL (0.0-1.1) Eosinophils # (Auto) 0.1 x10^3/uL (0.0-0.7) Basophils # (Auto) 0.0 x10^3/uL (0.0-0.2) Glucose (Fingerstick) 119 mg/dL (70-99) Laboratory Tests Test 09/02/19 12:11 09/02/19 17:59 09/03/19 01:15 09/03/19 05:45 Glucose (Fingerstick) 208 mg/dL (70-99) 130 mg/dL (70-99) 153 mg/dL (70-99) White Blood Count 11.3 x10^3/uL (4.0-11.0) Red Blood Count 2.65 x10^6/uL (3.50-5.40) Hemoglobin 7.5 g/dL (12.0-15.5) Hematocrit 23.6 % (36.0-47.0) Mean Corpuscular Volume 89 fL (79-100) Mean Corpuscular Hemoglobin 28 pg (25-35) Mean Corpuscular Hemoglobin Concent 32 g/dL (31-37) Red Cell Distribution Width 18.1 % (11.5-14.5) Platelet Count 524 x10^3/uL (140-400) Neutrophils (%) (Auto) 84 % (31-73) Lymphocytes (%) (Auto) 9 % (24-48) Monocytes (%) (Auto) 5 % (0-9) Eosinophils (%) (Auto) 1 % (0-3) Basophils (%) (Auto) 0 % (0-3) Neutrophils # (Auto) 9.5 x10^3/uL (1.8-7.7) Lymphocytes # (Auto) 1.0 x10^3/uL (1.0-4.8) Monocytes # (Auto) 0.6 x10^3/uL (0.0-1.1) Eosinophils # (Auto) 0.1 x10^3/uL (0.0-0.7) Basophils # (Auto) 0.0 x10^3/uL (0.0-0.2) Test 09/03/19 05:54 Glucose (Fingerstick) 119 mg/dL (70-99) Microbiology 08/24/19 Fungal Culture - Final, Complete 08/24/19 Fungal Culture Result 1 - Final, Complete 08/22/19 Blood Culture - Final, Complete NO GROWTH AFTER 5 DAYS 08/18/19 Aerobic Culture - Final, Complete 08/18/19 Aerobic Culture Result 1 (ALEXANDRA) - Final, Complete 08/18/19 Gram Stain - Final, Complete 08/18/19 Gram Stain Result 1 (ALEXANDRA) - Final, Complete 08/18/19 Gram Stain Result 2 (ALEXANDRA) - Final, Complete 07/31/19 Urine Culture - Final, Complete 07/31/19 Urine Culture Result 1 (ALEXANDRA) - Final, Complete Medications Current Medications Sodium Chloride 1,000 ml @ 1,000 mls/hr Q1H IV Last administered on 07/04/19at 03:00; Start 07/04/19 at 03:00; Stop 07/04/19 at 03:59; Status DC Ondansetron HCl (Zofran) 4 mg 1X ONCE IVP Last administered on 07/04/19at 03:27; Start 07/04/19 at 03:00; Stop 07/04/19 at 03:01; Status DC Morphine Sulfate (Morphine Sulfate) 4 mg 1X ONCE IV ; Start 07/04/19 at 03:00; Stop 07/04/19 at 03:01; Status Cancel Ketorolac Tromethamine (Toradol 30mg Vial) 30 mg 1X ONCE IV Last administered on 07/04/19at 02:54; Start 07/04/19 at 03:00; Stop 07/04/19 at 03:01; Status DC Fentanyl Citrate (Fentanyl 2ml Vial) 25 mcg 1X ONCE IVP Last administered on 07/04/19at 03:23; Start 07/04/19 at 03:30; Stop 07/04/19 at 03:31; Status DC Fentanyl Citrate (Fentanyl 2ml Vial) 100 mcg STK-MED ONCE .ROUTE ; Start 07/04/19 at 03:18; Stop 07/04/19 at 03:18; Status DC Iohexol (Omnipaque 350 Mg/ml) 90 ml 1X ONCE IV Last administered on 07/04/19at 03:25; Start 07/04/19 at 03:30; Stop 07/04/19 at 03:31; Status DC Info (CONTRAST GIVEN -- Rx MONITORING) 1 each PRN DAILY PRN MC SEE COMMENTS; Start 07/04/19 at 03:30; Stop 07/06/19 at 03:29; Status DC Hydromorphone HCl (Dilaudid) 0.5 mg 1X ONCE IV Last administered on 07/04/19at 03:55; Start 07/04/19 at 04:30; Stop 07/04/19 at 04:32; Status DC Ondansetron HCl (Zofran) 4 mg PRN Q8HRS PRN IV NAUSEA/VOMITING 1ST CHOICE; Start 07/04/19 at 05:00; Stop 07/04/19 at 09:27; Status DC Morphine Sulfate (Morphine Sulfate) 2 mg PRN Q2HR PRN IV SEVERE PAIN 7-10 Last administered on 07/05/19at 12:26; Start 07/04/19 at 05:00; Stop 07/05/19 at 14:15; Status DC Sodium Chloride 1,000 ml @ 125 mls/hr Q8H IV Last administered on 07/04/19at 20:56; Start 07/04/19 at 05:00; Stop 07/05/19 at 04:59; Status DC Hydromorphone HCl (Dilaudid) 0.5 mg PRN Q3HRS PRN IV SEVERE PAIN 7-10 Last ad ministered on 07/05/19at 10:06; Start 07/04/19 at 05:00; Stop 07/05/19 at 12:01; Status DC Piperacillin Sod/ Tazobactam Sod 4.5 gm/Sodium Chloride 100 ml @ 200 mls/hr 1X ONCE IV Last administered on 07/04/19at 05:44; Start 07/04/19 at 06:00; Stop 07/04/19 at 06:29; Status DC Ondansetron HCl (Zofran) 4 mg PRN Q4HRS PRN IV NAUSEA/VOMITING 1ST CHOICE Last administered on 08/28/19at 17:09; Start 07/04/19 at 09:30 Insulin Human Lispro (HumaLOG) 0-9 UNITS Q6HRS SQ Last administered on 09/03/19at 01:19; Start 07/04/19 at 09:30 Dextrose (Dextrose 50%-Water Syringe) 12.5 gm PRN Q15MIN PRN IV SEE COMMENTS; Start 07/04/19 at 09:30 Pantoprazole Sodium (PROTONIX VIAL for IV PUSH) 40 mg DAILYAC IVP Last administered on 09/03/19at 08:56; Start 07/04/19 at 11:30 Prochlorperazine Edisylate (Compazine) 10 mg PRN Q6HRS PRN IV NAUSEA/VOMITING, 2nd CHOICE Last administered on 09/01/19at 06:11; Start 07/04/19 at 17:45 Atenolol (Tenormin) 100 mg DAILY PO ; Start 07/05/19 at 09:00; Stop 07/04/19 at 20:08; Status DC Metoprolol Tartrate (Lopressor Vial) 2.5 mg Q6HRS IVP Last administered on 07/05/19at 05:51; Start 07/04/19 at 20:15; Stop 07/05/19 at 10:02; Status DC Metoprolol Tartrate (Lopressor Vial) 5 mg Q6HRS IVP Last administered on 07/14/19at 00:12; Start 07/05/19 at 10:15; Stop 07/16/19 at 08:48; Status DC Hydromorphone HCl (Dilaudid) 1 mg PRN Q3HRS PRN IV SEVERE PAIN 7-10 Last administered on 07/11/19at 05:13; Start 07/05/19 at 12:00; Stop 07/19/19 at 00:25; Status DC Lidocaine HCl (Buffered Lidocaine 1%) 3 ml STK-MED ONCE .ROUTE ; Start 07/05/19 at 12:55; Stop 07/05/19 at 12:56; Status DC Albumin Human 500 ml @ 125 mls/hr 1X ONCE IV Last administered on 07/05/19at 14:33; Start 07/05/19 at 14:30; Stop 07/05/19 at 18:32; Status DC Norepinephrine Bitartrate 8 mg/ Dextrose 258 ml @ 17.299 mls/ hr CONT PRN IV PER PROTOCOL Last administered on 08/02/19at 12:48; Start 07/05/19 at 15:30; Stop 08/05/19 at 09:19; Status DC Sodium Chloride 1,000 ml @ 125 mls/hr Q8H IV Last administered on 07/05/19at 21:04; Start 07/05/19 at 16:00; Stop 07/06/19 at 02:42; Status DC Albumin Human 500 ml @ 125 mls/hr PRN BID PRN IV After every 2L NSS & BP < 90mm Last administered on 07/20/19at 14:21; Start 07/05/19 at 16:00 Iohexol (Omnipaque 300 Mg/ml) 60 ml 1X ONCE IV Last administered on 07/05/19at 17:20; Start 07/05/19 at 17:00; Stop 07/05/19 at 17:01; Status DC Info (CONTRAST GIVEN -- Rx MONITORING) 1 each PRN DAILY PRN MC SEE COMMENTS; Start 07/05/19 at 17:00; Stop 07/07/19 at 16:59; Status DC Meropenem 1 gm/ Sodium Chloride 100 ml @ 200 mls/hr Q8HRS IV Last administered on 07/06/19at 05:45; Start 07/05/19 at 20:00; Stop 07/06/19 at 08:48; Status DC Furosemide (Lasix) 40 mg 1X ONCE IVP Last administered on 07/05/19at 22:12; Start 07/05/19 at 22:30; Stop 07/05/19 at 22:31; Status DC Calcium Chloride 1000 mg/Sodium Chloride 110 ml @ 220 mls/hr 1X ONCE IV Last administered on 07/05/19at 22:11; Start 07/05/19 at 22:30; Stop 07/05/19 at 22:59; Status DC Albuterol Sulfate (Ventolin Neb Soln) 2.5 mg 1X ONCE NEB Last administered on 07/06/19at 00:56; Start 07/05/19 at 22:30; Stop 07/05/19 at 22:31; Status DC Insulin Human Regular (HumuLIN R VIAL) 5 unit 1X ONCE IV Last administered on 07/05/19at 22:14; Start 07/05/19 at 22:30; Stop 07/05/19 at 22:31; Status DC Magnesium Sulfate 50 ml @ 25 mls/hr 1X ONCE IV Last administered on 07/06/19at 02:57; Start 07/06/19 at 03:00; Stop 07/06/19 at 04:59; Status DC Calcium Gluconate 1000 mg/Sodium Chloride 110 ml @ 220 mls/hr 1X ONCE IV Last administered on 07/06/19at 02:46; Start 07/06/19 at 03:00; Stop 07/06/19 at 03:29; Status DC Sodium Chloride 1,000 ml @ 200 mls/hr Q5H IV Last administered on 07/06/19at 02:46; Start 07/06/19 at 03:00; Stop 07/06/19 at 10:21; Status DC Calcium Gluconate 1000 mg/Sodium Chloride 110 ml @ 220 mls/hr 1X ONCE IV Last administered on 07/06/19at 03:21; Start 07/06/19 at 03:30; Stop 07/06/19 at 03:59; Status DC Sodium Bicarbonate 50 meq/Sodium Chloride 1,050 ml @ 75 mls/hr Q14H IV Last administered on 07/10/19at 21:10; Start 07/06/19 at 07:30; Stop 07/11/19 at 1 0:28; Status DC Calcium Gluconate 2000 mg/Sodium Chloride 120 ml @ 220 mls/hr 1X ONCE IV Last administered on 07/06/19at 09:05; Start 07/06/19 at 07:30; Stop 07/06/19 at 08:02; Status DC Lidocaine HCl (Xylocaine-Mpf 1% 2ml Vial) 2 ml STK-MED ONCE .ROUTE ; Start 07/06/19 at 08:47; Stop 07/06/19 at 08:47; Status DC Meropenem 500 mg/ Sodium Chloride 50 ml @ 100 mls/hr Q12HR IV Last administered on 07/11/19at 21:01; Start 07/06/19 at 18:00; Stop 07/12/19 at 07:58; Status DC Lidocaine HCl (Buffered Lidocaine 1%) 3 ml STK-MED ONCE .ROUTE ; Start 07/06/19 at 09:46; Stop 07/06/19 at 09:46; Status DC Lidocaine HCl (Buffered Lidocaine 1%) 6 ml 1X ONCE INJ Last administered on 07/06/19at 10:26; Start 07/06/19 at 10:15; Stop 07/06/19 at 10:16; Status DC Info (Tpn Per Pharmacy) 1 each PRN DAILY PRN MC SEE COMMENTS Last administered on 09/02/19at 12:34; Start 07/06/19 at 12:00 Sodium Chloride 1,000 ml @ 1,000 mls/hr Q1H PRN IV hypotension; Start 07/06/19 at 12:07; Stop 07/06/19 at 18:06; Status DC Diphenhydramine HCl (Benadryl) 25 mg 1X PRN PRN IV ITCHING; Start 07/06/19 at 12:15; Stop 07/07/19 at 12:14; Status DC Diphenhydramine HCl (Benadryl) 25 mg 1X PRN PRN IV ITCHING; Start 07/06/19 at 12:15; Stop 07/07/19 at 12:14; Status DC Sodium Chloride 1,000 ml @ 400 mls/hr Q2H30M PRN IV PATENCY; Start 07/06/19 at 12:07; Stop 07/07/19 at 00:06; Status DC Info (PHARMACY MONITORING -- do not chart) 1 each PRN DAILY PRN MC SEE COMMENTS; Start 07/06/19 at 12:15; Stop 07/08/19 at 08:13; Status DC Sodium Chloride 90 meq/Calcium Gluconate 10 meq/ Multivitamins 10 ml/Chromium/ Copper/Manganese/ Seleni/Zn 1 ml/ Total Parenteral Nutrition/Amino A cids/Dextrose/ Fat Emulsion Intravenous 55.005 ml @ 2.292 mls/hr TPN CONT IV ; Start 07/06/19 at 22:00; Stop 07/06/19 at 12:33; Status DC Info (Tpn Per Pharmacy) 1 each PRN DAILY PRN MC SEE COMMENTS; Start 07/06/19 at 12:30; Status UNV Sodium Chloride 90 meq/Calcium Gluconate 10 meq/ Multivitamins 10 ml/Chromium/ Copper/Manganese/ Seleni/Zn 0.5 ml/ Total Parenteral Nutrition/Amino Acids/Dextrose/ Fat Emulsion Intravenous 1,512 ml @ 63 mls/hr TPN CONT IV Last administered on 07/06/19at 22:06; Start 07/06/19 at 22:00; Stop 07/07/19 at 21:59; Status DC Calcium Carbonate/ Glycine (Tums) 500 mg PRN AFTMEALHC PRN PO INDIGESTION; Start 07/06/19 at 17:45; Stop 08/31/19 at 10:25; Status DC Calcium Gluconate (Calcium Gluconate) 2,000 mg 1X ONCE IVP Last administered on 07/07/19at 02:19; Start 07/07/19 at 02:15; Stop 07/07/19 at 02:16; Status DC Calcium Chloride 3000 mg/Sodium Chloride 1,030 ml @ 50 mls/hr [id number] IV Last administered on 07/09/19at 02:17; Start 07/07/19 at 08:00; Stop 07/09/19 at 15:23; Status DC Lorazepam (Ativan Inj) 1 mg PRN Q4HRS PRN IVP ANXIETY / AGITATION, 2nd choic Last administered on 08/05/19at 03:51; Start 07/07/19 at 09:00; Stop 08/05/19 at 09:19; Status DC Sodium Chloride 1,000 ml @ 1,000 mls/hr Q1H PRN IV hypotension; Start 07/07/19 at 08:56; Stop 07/07/19 at 14:55; Status DC Albumin Human 200 ml @ 200 mls/hr 1X PRN PRN IV Hypotension; Start 07/07/19 at 09:00; Stop 07/07/19 at 14:59; Status DC Diphenhydramine HCl (Benadryl) 25 mg 1X PRN PRN IV ITCHING; Start 07/07/19 at 0 9:00; Stop 07/08/19 at 08:59; Status DC Diphenhydramine HCl (Benadryl) 25 mg 1X PRN PRN IV ITCHING; Start 07/07/19 at 09:00; Stop 07/08/19 at 08:59; Status DC Sodium Chloride 1,000 ml @ 400 mls/hr Q2H30M PRN IV PATENCY; Start 07/07/19 at 08:56; Stop 07/07/19 at 20:55; Status DC Info (PHARMACY MONITORING -- do not chart) 1 each PRN DAILY PRN MC SEE COMMENTS; Start 07/07/19 at 09:00; Status UNV Info (PHARMACY MONITORING -- do not chart) 1 each PRN DAILY PRN MC SEE COMMENTS; Start 07/07/19 at 09:00; Stop 07/08/19 at 08:13; Status DC Digoxin (Lanoxin) 500 mcg 1X ONCE IV Last administered on 07/07/19at 10:04; Start 07/07/19 at 10:00; Stop 07/07/19 at 10:01; Status DC Digoxin (Lanoxin) 125 mcg 1X ONCE IV Last administered on 07/07/19at 17:10; Start 07/07/19 at 18:00; Stop 07/07/19 at 18:01; Status DC Magnesium Sulfate 100 ml @ 25 mls/hr 1X ONCE IV Last administered on at 12:48; Start 07/07/19 at 13:00; Stop 07/07/19 at 16:59; Status DC Sodium Chloride 90 meq/Magnesium Sulfate 10 meq/ Calcium Gluconate 20 meq/ Multivitamins 10 ml/Chromium/ Copper/Manganese/ Seleni/Zn 0.5 ml/ Total Parenteral Nutrition/Amino Acids/Dextrose/ Fat Emulsion Intravenous 1,512 ml @ 63 mls/hr TPN CONT IV Last administered on 07/07/19at 22:25; Start 07/07/19 at 22:00; Stop 07/08/19 at 21:59; Status DC Sodium Chloride 1,000 ml @ 1,000 mls/hr Q1H PRN IV hypotension; Start 07/08/19 at 08:05; Stop 07/08/19 at 14:04; Status DC Albumin Human 200 ml @ 200 mls/hr 1X ONCE IV Last administered on 07/08/19at 08:57; Start 07/08/19 at 08:15; Stop 07/08/19 at 09:14; Status DC Diphenhydramine HCl (Benadryl) 25 mg 1X PRN PRN IV ITCHING; Start 07/08/19 at 08:15; Stop 07/09/19 at 08:14; Status DC Diphenhydramine HCl (Benadryl) 25 mg 1X PRN PRN IV ITCHING; Start 07/08/19 at 08:15; Stop 07/09/19 at 08:14; Status DC Sodium Chloride 1,000 ml @ 400 mls/hr Q2H30M PRN IV PATENCY; Start 07/08/19 at 08:05; Stop 07/08/19 at 20:04; Status DC Info (PHARMACY MONITORING -- do not chart) 1 each PRN DAILY PRN MC SEE COMMENTS; Start 07/08/19 at 08:15; Stop 07/12/19 at 07:57; Status DC Sodium Chloride 90 meq/Potassium Chloride 15 meq/ Potassium Phosphate 10 mmol/ Magnesium Sulfate 10 meq/Calcium Gluconate 20 meq/ Multivitamins 10 ml/Chromium/ Copper/Manganese/ Seleni/Zn 0.5 ml/ Total Parenteral Nutrition/Amino Acids/Dextrose/ Fat Emulsion Intravenous 1,512 ml @ 63 mls/hr TPN CONT IV Last administered on 07/08/19at 21:01; Start 07/08/19 at 22:00; Stop 07/09/19 at 21:59; Status DC Potassium Chloride/Water 100 ml @ 100 mls/hr 1X ONCE IV Last administered on 07/08/19at 14:09; Start 07/08/19 at 14:00; Stop 07/08/19 at 14:59; Status DC Benzocaine (Hurricaine One) 1 spray 1X ONCE MM Last administered on 07/08/19at 16:38; Start 07/08/19 at 14:30; Stop 07/08/19 at 14:31; Status DC Lidocaine HCl (Glydo (Lidocaine) Jelly) 1 ramu 1X ONCE MM Last administered on 07/08/19at 16:38; Start 07/08/19 at 14:30; Stop 07/08/19 at 14:31; Status DC Linezolid/Dextrose 300 ml @ 300 mls/hr Q12HR IV Last administered on 07/14/19at 21:04; Start 07/08/19 at 20:00; Stop 07/15/19 at 07:50; Status DC Acetaminophen (Tylenol) 650 mg PRN Q6HRS PRN PO MILD PAIN / TEMP; Start 07/09/19 at 03:30; Stop 07/09/19 at 03:36; Status DC Acetaminophen (Tylenol) 650 mg PRN Q6HRS PRN PEG MILD PAIN / TEMP Last administered on 08/04/19at 19:56; Start 07/09/19 at 03:36; Stop 08/31/19 at 10:25; Status DC Sodium Chloride 1,000 ml @ 1,000 mls/hr Q1H PRN IV hypotension; Start 07/09/19 at 07:50; Stop 07/09/19 at 13:49; Status DC Albumin Human 200 ml @ 200 mls/hr 1X PRN PRN IV Hypotension; Start 07/09/19 at 08:00; Stop 07/09/19 at 13:59; Status DC Sodium Chloride (Normal Saline Flush) 10 ml 1X PRN PRN IV AP catheter pack; Start 07/09/19 at 08:00; Stop 07/10/19 at 07:59; Status DC Sodium Chloride (Normal Saline Flush) 10 ml 1X PRN PRN IV BLACK TOP ROLLER catheter pack; Start 07/09/19 at 08:00; Stop 07/10/19 at 07:59; Status DC Sodium Chloride 1,000 ml @ 400 mls/hr Q2H30M PRN IV PATENCY; Start 07/09/19 at 07:50; Stop 07/09/19 at 19:49; Status DC Info (PHARMACY MONITORING -- do not chart) 1 each PRN DAILY PRN MC SEE COMMENTS; Start 07/09/19 at 08:00; Status UNV Info (PHARMACY MONITORING -- do not chart) 1 each PRN DAILY PRN MC SEE COMMENTS; Start 07/09/19 at 08:00; Stop 07/11/19 at 08:25; Status DC Sodium Chloride 90 meq/Potassium Chloride 15 meq/ Potassium Phosphate 10 mmol/ Magnesium Sulfate 10 meq/Calcium Gluconate 20 meq/ Multivitamins 10 ml/Chromium/ Copper/Manganese/ Seleni/Zn 0.5 ml/ Total Parenteral Nutrition/Amino Acids/Dextrose/ Fat Emulsion Intravenous 1,512 ml @ 63 mls/hr TPN CONT IV Last administered on 07/09/19at 20:57; Start 07/09/19 at 22:00; Stop 07/10/19 at 21:59; Status DC Sodium Chloride 90 meq/Potassium Chloride 15 meq/ Potassium Phosphate 15 mmol/ Magnesium Sulfate 10 meq/Calcium Gluconate 20 meq/ Multivitamins 10 ml/Chromium/ Copper/Manganese/ Seleni/Zn 0.5 ml/ Total Parenteral Nutrition/Amino Acids/Dextrose/ Fat Emulsion Intravenous 1,512 ml @ 63 mls/hr TPN CONT IV ; Start 07/10/19 at 22:00; Stop 07/10/19 at 14:16; Status DC Sodium Chloride 90 meq/Potassium Chloride 15 meq/ Potassium Phosphate 15 mmol/ Magnesium Sulfate 10 meq/Calcium Gluconate 20 meq/ Multivitamins 10 ml/Chromium/ Copper/Manganese/ Seleni/Zn 0.5 ml/ Total Parenteral Nutrition/Amino Acids/Dextrose/ Fat Emulsion Intravenous 1,200 ml @ 50 mls/hr TPN CONT IV ; Start 07/10/19 at 22:00; Stop 07/10/19 at 14:17; Status DC Sodium Chloride 90 meq/Potassium Chloride 15 meq/ Potassium Phosphate 10 mmol/ Magnesium Sulfate 10 meq/Calcium Gluconate 20 meq/ Multivitamins 10 ml/Chromium/ Copper/Manganese/ Seleni/Zn 0.5 ml/ Total Parenteral Nutrition/Amino Acids/Dextrose/ Fat Emulsion Intravenous 1,200 ml @ 50 mls/hr TPN CONT IV Last administered on 07/10/19at 23:29; Start 07/10/19 at 22:00; Stop 07/11/19 at 21:59; Status DC Sodium Chloride 1,000 ml @ 1,000 mls/hr Q1H PRN IV hypotension; Start 07/11/19 at 07:28; Stop 07/11/19 at 13:27; Status DC Albumin Human 200 ml @ 200 mls/hr 1X ONCE IV Last administered on 07/11/19at 08:51; Start 07/11/19 at 07:30; Stop 07/11/19 at 08:29; Status DC Diphenhydramine HCl (Benadryl) 25 mg 1X PRN PRN IV ITCHING; Start 07/11/19 at 07:30; Stop 07/12/19 at 07:29; Status DC Diphenhydramine HCl (Benadryl) 25 mg 1X PRN PRN IV ITCHING; Start 07/11/19 at 07:30; Stop 07/12/19 at 07:29; Status DC Sodium Chloride 1,000 ml @ 400 mls/hr Q2H30M PRN IV PATENCY; Start 07/11/19 at 07:28; Stop 07/11/19 at 19:27; Status DC Info (PHARMACY MONITORING -- do not chart) 1 each PRN DAILY PRN MC SEE COMMENTS; Start 07/11/19 at 07:30; Stop 07/22/19 at 13:01; Status DC Metronidazole 100 ml @ 100 mls/hr Q6HRS IV Last administered on 07/27/19at 06:26; Start 07/11/19 at 08:30; Stop 07/27/19 at 09:58; Status DC Micafungin Sodium 100 mg/Dextrose 100 ml @ 100 mls/hr Q24H IV Last administered on 08/18/19at 08:18; Start 07/11/19 at 09:00; Stop 08/18/19 at 20:58 ; Status DC Propofol 0 ml @ As Directed STK-MED ONCE IV ; Start 07/11/19 at 07:53; Stop 07/11/19 at 07:53; Status DC Etomidate (Amidate) 20 mg STK-MED ONCE IV ; Start 07/11/19 at 07:53; Stop 07/11/19 at 07:54; Status DC Midazolam HCl (Versed) 5 mg STK-MED ONCE .ROUTE ; Start 07/11/19 at 07:57; Stop 07/11/19 at 07:57; Status DC Fentanyl Citrate 30 ml @ 0 mls/hr CONT PRN IV SEE PROTOCOL Last administered on 08/05/19at 06:12; Start 07/11/19 at 08:15; Stop 08/05/19 at 09:19; Status DC Artificial Tears (Artificial Tears) 1 drop PRN Q1HR PRN OU DRY EYE, 1st choice; Start 07/11/19 at 08:15; Stop 08/17/19 at 05:31; Status DC Midazolam HCl 50 mg/Sodium Chloride 50 ml @ 0 mls/hr CONT PRN IV SEE PROTOCOL Last administered on 07/14/19at 22:39; Start 07/11/19 at 08:15; Stop 07/16/19 at 15:59; Status DC Etomidate (Amidate) 8 mg 1X ONCE IV Last administered on 07/11/19at 08:33; Start 07/11/19 at 08:30; Stop 07/11/19 at 08:31; Status DC Succinylcholine Chloride (Anectine) 120 mg 1X ONCE IV Last administered on at 08:34; Start 07/11/19 at 08:30; Stop 07/11/19 at 08:31; Status DC Midazolam HCl (Versed) 5 mg 1X ONCE IV ; Start 07/11/19 at 08:30; Stop 07/11/19 at 08:31; Status DC Potassium Chloride 15 meq/ Bicarbonate Dialysis Soln w/ out KCl 5,007.5 ml @ 1 ,000 mls/ hr Q5H1M IV Last administered on 07/12/19at 11:11; Start 07/11/19 at 12:00; Stop 07/12/19 at 11:15; Status DC Potassium Chloride 15 meq/ Bicarbonate Dialysis Soln w/ out KCl 5,007.5 ml @ 1,000 mls/ hr Q5H1M IV Last administered on 07/12/19at 11:12; Start 07/11/19 at 12:00; Stop 07/12/19 at 11:17; Status DC Potassium Chloride 15 meq/ Bicarbonate Dialysis Soln w/ out KCl 5,007.5 ml @ 1,000 mls/ hr Q5H1M IV Last administered on 07/12/19at 11:11; Start 07/11/19 at 12:00; Stop 07/12/19 at 11:19; Status DC Sodium Chloride 90 meq/Potassium Chloride 15 meq/ Potassium Phosphate 10 mmol/ Magnesium Sulfate 10 meq/Calcium Gluconate 20 meq/ Multivitamins 10 ml/Chromium/ Copper/Manganese/ Seleni/Zn 0.5 ml/ Total Parenteral Nutrition/Amino Acids/Dextrose/ Fat Emulsion Intravenous 1,400 ml @ 58.333 mls/ hr TPN CONT IV Last administered on 07/11/19at 21:42; Start 07/11/19 at 22:00; Stop 07/12/19 at 21:59; Status DC Heparin Sodium (Porcine) (Heparin Sodium) 5,000 unit Q8HRS SQ Last administered on 07/16/19at 05:55; Start 07/11/19 at 15:00; Stop 07/16/19 at 13:28; Status DC Meropenem 500 mg/ Sodium Chloride 50 ml @ 100 mls/hr Q6HRS IV Last administered on 07/13/19at 06:00; Start 07/12/19 at 09:00; Stop 07/13/19 at 07:29; Status DC Potassium Phosphate 20 mmol/ Sodium Chloride 106.6667 ml @ 51.667 m... 1X ONCE IV Last administered on 07/12/19at 11:22; Start 07/12/19 at 10:15; Stop 07/12/19 at 12:18; Status DC Acetaminophen (Tylenol Supp) 650 mg PRN Q6HRS PRN CA MILD PAIN / TEMP > 100.3'F Last administered on 08/23/19at 09:12; Start 07/12/19 at 10:30 Potassium Chloride/Water 100 ml @ 100 mls/hr Q1H IV Last administered on 07/12/19at 12:12; Start 07/12/19 at 11:00; Stop 07/12/19 at 12:59; Status DC Potassium Chloride 20 meq/ Bicarbonate Dialysis Soln w/ out KCl 5,010 ml @ 1,000 mls/hr Q5H1M IV Last administered on 07/13/19at 08:48; Start 07/12/19 at 12:00; Stop 07/13/19 at 13:03; Status DC Potassium Chloride 20 meq/ Bicarbonate Dialysis Soln w/ out KCl 5,010 ml @ 1,000 mls/hr Q5H1M IV Last administered on 07/17/19at 14:52; Start 07/12/19 at 11:30; Stop 07/17/19 at 19:59; Status DC Potassium Chloride 20 meq/ Bicarbonate Dialysis Soln w/ out KCl 5,010 ml @ 1,000 mls/hr Q5H1M IV Last administered on 07/17/19at 14:53; Start 07/12/19 at 11:30; Stop 07/17/19 at 19:59; Status DC Sodium Chloride 90 meq/Potassium Chloride 15 meq/ Potassium Phosphate 15 mmol/ Magnesium Sulfate 10 meq/Calcium Gluconate 15 meq/ Multivitamins 10 ml/Chromium/ Copper/Manganese/ Seleni/Zn 0.5 ml/ Total Parenteral Nutrition/Amino Acids/Dext amarilis/ Fat Emulsion Intravenous 1,400 ml @ 58.333 mls/ hr TPN CONT IV Last administered on 07/12/19at 22:17; Start 07/12/19 at 22:00; Stop 07/13/19 at 21:59; Status DC Cefepime HCl (Maxipime) 2 gm Q12HR IVP Last administered on 07/26/19at 20:56; Start 07/13/19 at 09:00; Stop 07/27/19 at 09:58; Status DC Daptomycin 500 mg/ Sodium Chloride 50 ml @ 100 mls/hr Q48H IV Last administe red on 07/29/19at 09:57; Start 07/13/19 at 08:30; Stop 07/29/19 at 10:07; Status DC Lidocaine HCl (Buffered Lidocaine 1%) 3 ml 1X ONCE INJ Last administered on 07/13/19at 10:27; Start 07/13/19 at 10:30; Stop 07/13/19 at 10:31; Status DC Potassium Phosphate 20 mmol/ Sodium Chloride 106.6667 ml @ 51.667 m... 1X ONCE IV Last administered on 07/13/19at 12:51; Start 07/13/19 at 13:00; Stop 07/13/19 at 15:03; Status DC Sodium Chloride 90 meq/Potassium Chloride 15 meq/ Potassium Phosphate 18 mmol/ Magnesium Sulfate 8 meq/Calcium Gluconate 15 meq/ Multivitamins 10 ml/Chromium/ Copper/Manganese/ Seleni/Zn 0.5 ml/ Total Parenteral Nutrition/Amino Acids/Dextrose/ Fat Emulsion Intravenous 1,400 ml @ 58.333 mls/ hr TPN CONT IV Last administered on 07/13/19at 22:16; Start 07/13/19 at 22:00; Stop 07/14/19 at 21:59; Status DC Potassium Chloride 20 meq/ Bicarbonate Dialysis Soln w/ out KCl 5,010 ml @ 1,000 mls/hr Q5H1M IV Last administered on 07/17/19at 14:54; Start 07/13/19 at 16:00; Stop 07/17/19 at 19:59; Status DC Multi-Ingred Cream/Lotion/Oil/ Oint (Artificial Tears Eye Ointment) 1 ramu PRN Q1HR PRN OU DRY EYE, 2nd choice Last administered on 08/01/19at 08:19; Start 07/13/19 at 17:30 Sodium Chloride 90 meq/Potassium Chloride 15 meq/ Potassium Phosphate 18 mmol/ M agnesium Sulfate 8 meq/Calcium Gluconate 15 meq/ Multivitamins 10 ml/Chromium/ Copper/Manganese/ Seleni/Zn 0.5 ml/ Total Parenteral Nutrition/Amino Acids/Dextrose/ Fat Emulsion Intravenous 1,400 ml @ 58.333 mls/ hr TPN CONT IV Last administered on 07/14/19at 22:00; Start 07/14/19 at 22:00; Stop 07/15/19 at 21:59; Status DC Albumin Human 500 ml @ 125 mls/hr 1X ONCE IV ; Start 07/14/19 at 14:15; Stop 07/14/19 at 18:14; Status DC Sodium Chloride 90 meq/Potassium Chloride 15 meq/ Potassium Phosphate 18 mmol/ Magnesium Sulfate 8 meq/Calcium Gluconate 15 meq/ Multivitamins 10 ml/Chromium/ Copper/Manganese/ Seleni/Zn 0.5 ml/ Insulin Human Regular 10 unit/ Total Parenteral Nutrition/Amino Acids/Dextrose/ Fat Emulsion Intravenous 1,400 ml @ 58.333 mls/ hr TPN CONT IV Last administered on 07/15/19at 21:43; Start 07/15/19 at 22:00; Stop 07/16/19 at 21:59; Status DC Lidocaine HCl (Buffered Lidocaine 1%) 3 ml STK-MED ONCE .ROUTE ; Start 07/13/19 at 10:00; Stop 07/15/19 at 13:57; Status DC Midazolam HCl 100 mg/Sodium Chloride 100 ml @ 7 mls/hr CONT PRN IV SEE PROTOCOL Last administered on 07/27/19at 15:35; Start 07/16/19 at 16:00 Sodium Chloride 90 meq/Potassium Chloride 15 meq/ Potassium Phosphate 18 mmol/ Magnesium Sulfate 8 meq/Calcium Gluconate 15 meq/ Multivitamins 10 ml/Chromium/ Copper/Manganese/ Seleni/Zn 0.5 ml/ Insulin Human Regular 15 unit/ Total Parenteral Nutrition/Amino Acids/Dextrose/ Fat Emulsion Intravenous 1,400 ml @ 58.333 mls/ hr TPN CONT IV Last administered on 07/16/19at 20:34; Start 07/16/19 at 22:00; Stop 07/17/19 at 21:59; Status DC Info (Icu Electrolyte Protocol) 1 ea CONT PRN PRN MC PER PROTOCOL; Start 07/17/19 at 13:15 Sodium Chloride 90 meq/Potassium Chloride 15 meq/ Potassium Phosphate 18 mmol/ Magnesium Sulfate 8 meq/Calcium Gluconate 15 meq/ Multivitamins 10 ml/Chromium/ Copper/Manganese/ Seleni/Zn 0.5 ml/ Insulin Human Regular 15 unit/ Total Parenteral Nutrition/Amino Acids/Dextrose/ Fat Emulsion Intravenous 1,400 ml @ 58.333 mls/ hr TPN CONT IV Last administered on 07/17/19at 22:05; Start 07/17/19 at 22:00; Stop 07/18/19 at 21:59; Status DC Potassium Chloride 15 meq/ Bicarbonate Dialysis Soln w/ out KCl 5,007.5 ml @ 1,000 mls/ hr Q5H1M IV Last administered on 07/20/19at 18:14; Start 07/17/19 at 20:00; Stop 07/21/19 at 13:08; Status DC Potassium Chloride 15 meq/ Bicarbonate Dialysis Soln w/ out KCl 5,007.5 ml @ 1,000 mls/ hr Q5H1M IV Last administered on 07/20/19at 18:14; Start 07/17/19 at 20:00; Stop 07/21/19 at 13:08; Status DC Potassium Chloride 15 meq/ Bicarbonate Dialysis Soln w/ out KCl 5,007.5 ml @ 1,000 mls/ hr Q5H1M IV Last administered on 07/20/19at 18:14; Start 07/17/19 at 20:00; Stop 07/21/19 at 13:08; Status DC Iohexol (Omnipaque 240 Mg/ml) 30 ml 1X ONCE PO Last administered on 07/18/19at 11:30; Start 07/18/19 at 11:30; Stop 07/18/19 at 11:33; Status DC Info (CONTRAST GIVEN -- Rx MONITORING) 1 each PRN DAILY PRN MC SEE COMMENTS; Start 07/18/19 at 11:45; Stop 07/20/19 at 11:44; Status DC Sodium Chloride 90 meq/Potassium Chloride 15 meq/ Potassium Phosphate 18 mmol/ Magnesium Sulfate 8 meq/Calcium Gluconate 15 meq/ Multivitamins 10 ml/Chromium/ Copper/Manganese/ Seleni/Zn 0.5 ml/ Insulin Human Regular 15 unit/ Total Parenteral Nutrition/Amino Acids/Dextrose/ Fat Emulsion Intravenous 1,400 ml @ 58.333 mls/ hr TPN CONT IV Last administered on 07/18/19at 21:47; Start 07/18/19 at 22:00; Stop 07/19/19 at 21:59; Status DC Sodium Chloride 90 meq/Potassium Chloride 15 meq/ Potassium Phosphate 18 mmol/ Magnesium Sulfate 8 meq/Calcium Gluconate 15 meq/ Multivitamins 10 ml/Chromium/ Copper/Manganese/ Seleni/Zn 0.5 ml/ Insulin Human Regular 20 unit/ Total Parenteral Nutrition/Amino Acids/Dextrose/ Fat Emulsion Intravenous 1,400 ml @ 58.333 mls/ hr TPN CONT IV Last administered on 07/19/19at 21:36; Start 07/19/19 at 22:00; Stop 07/20/19 at 21:59; Status DC Alteplase, Recombinant (Cathflo For Central Catheter Clearance) 1 mg 1X ONCE INT CAT Last administered on 07/19/19at 20:03; Start 07/19/19 at 19:30; Stop 07/19/19 at 19:46; Status DC Alteplase, Recombinant (Cathflo For Central Catheter Clearance) 1 mg 1X ONCE INT CAT Last administered on 07/19/19at 22:05; Start 07/19/19 at 22:00; Stop 07/19/19 at 22:01; Status DC Sodium Chloride 90 meq/Potassium Chloride 15 meq/ Potassium Phosphate 18 mmol/ Magnesium Sulfate 8 meq/Calcium Gluconate 15 meq/ Multivitamins 10 ml/Chromium/ Copper/Manganese/ Seleni/Zn 0.5 ml/ Insulin Human Regular 20 unit/ Total Parenteral Nutrition/Amino Acids/Dextrose/ Fat Emulsion Intravenous 1,400 ml @ 58.333 mls/ hr TPN CONT IV Last administered on 07/20/19at 21:30; Start 07/20/19 at 22:00; Stop 07/21/19 at 21:59; Status DC Dexmedetomidine HCl 400 mcg/ Sodium Chloride 100 ml @ 0 mls/hr CONT PRN IV ANXIETY / AGITATION Last administered on 09/03/19at 06:45; Start 07/21/19 at 08:15 Sodium Chloride 500 ml @ 500 mls/hr 1X PRN PRN IV ELEVATED BP, SEE COMMENTS; Start 07/21/19 at 08:15 Atropine Sulfate (ATROPINE 0.5mg SYRINGE) 0.5 mg PRN Q5MIN PRN IV SEE COMMENTS; Start 07/21/19 at 08:15 Furosemide (Lasix) 20 mg 1X ONCE IVP Last administered on 07/21/19at 08:19; Start 07/21/19 at 08:15; Stop 07/21/19 at 08:16; Status DC Lidocaine HCl (Buffered Lidocaine 1%) 3 ml STK-MED ONCE .ROUTE ; Start 07/21/19 at 08:39; Stop 07/21/19 at 08:39; Status DC Lidocaine HCl (Buffered Lidocaine 1%) 6 ml 1X ONCE INJ Last administered on 07/21/19at 09:05; Start 07/21/19 at 09:00; Stop 07/21/19 at 09:06; Status DC Sodium Chloride 90 meq/Potassium Chloride 15 meq/ Potassium Phosphate 18 mmol/ Magnesium Sulfate 8 meq/Calcium Gluconate 15 meq/ Multivitamins 10 ml/Chromium/ Copper/Manganese/ Seleni/Zn 0.5 ml/ Insulin Human Regular 20 unit/ Total Parenteral Nutrition/Amino Acids/Dextrose/ Fat Emulsion Intravenous 1,400 ml @ 58.333 mls/ hr TPN CONT IV Last administered on 07/21/19at 22:45; Start 07/21/19 at 22:00; Stop 07/22/19 at 21:59; Status DC Sodium Chloride 1,000 ml @ 1,000 mls/hr Q1H PRN IV hypotension; Start 07/22/19 at 07:30; Stop 07/22/19 at 13:29; Status DC Albumin Human 200 ml @ 200 mls/hr 1X PRN PRN IV Hypotension Last administered on 07/22/19at 09:36; Start 07/22/19 at 07:30; Stop 07/22/19 at 13:29; Status DC Sodium Chloride (Normal Saline Flush) 10 ml 1X PRN PRN IV AP catheter pack; Start 07/22/19 at 07:30; Stop 07/22/19 at 21:29; Status DC Sodium Chloride (Normal Saline Flush) 10 ml 1X PRN PRN IV BLACK TOP ROLLER catheter pack; Start 07/22/19 at 07:30; Stop 07/23/19 at 07:29; Status DC Sodium Chloride 1,000 ml @ 400 mls/hr Q2H30M PRN IV PATENCY; Start 07/22/19 at 07:30; Stop 07/22/19 at 19:29; Status DC Info (PHARMACY MONITORING -- do not chart) 1 each PRN DAILY PRN MC SEE COMMENTS; Start 07/22/19 at 07:30; Stop 07/22/19 at 13:02; Status DC Info (PHARMACY MONITORING -- do not chart) 1 each PRN DAILY PRN MC SEE COMMENTS; Start 07/22/19 at 07:30; Stop 07/24/19 at 12:45; Status DC Sodium Chloride 90 meq/Potassium Chloride 15 meq/ Potassium Phosphate 10 mmol/ M agnesium Sulfate 8 meq/Calcium Gluconate 15 meq/ Multivitamins 10 ml/Chromium/ Copper/Manganese/ Seleni/Zn 0.5 ml/ Insulin Human Regular 25 unit/ Total Parenteral Nutrition/Amino Acids/Dextrose/ Fat Emulsion Intravenous 1,400 ml @ 58.333 mls/ hr TPN CONT IV Last administered on 07/22/19at 22:19; Start 07/22/19 at 22:00; Stop 07/23/19 at 21:59; Status DC Heparin Sodium (Porcine) (Heparin Sodium) 5,000 unit Q12HR SQ Last administered on 08/14/19at 08:59; Start 07/22/19 at 21:00; Stop 08/14/19 at 10:05; Status DC Ondansetron HCl (Zofran) 4 mg PRN Q6HRS PRN IV NAUSEA/VOMITING; Start 07/25/19 at 07:00; Stop 07/26/19 at 06:59; Status DC Fentanyl Citrate (Fentanyl 2ml Vial) 25 mcg PRN Q5MIN PRN IV MILD PAIN 1-3; Start 07/25/19 at 07:00; Stop 07/26/19 at 06:59; Status DC Fentanyl Citrate (Fentanyl 2ml Vial) 50 mcg PRN Q5MIN PRN IV MODERATE TO SEVERE PAIN; Start 07/25/19 at 07:00; Stop 07/26/19 at 06:59; Status DC Ringer's Solution 1,000 ml @ 30 mls/hr Q24H IV ; Start 07/25/19 at 07:00; Stop 07/25/19 at 18:59; Status DC Lidocaine HCl (Xylocaine-Mpf 1% 2ml Vial) 2 ml PRN 1X PRN ID PRIOR TO IV START; Start 07/25/19 at 07:00; Stop 07/26/19 at 06:59; Status DC Prochlorperazine Edisylate (Compazine) 5 mg PACU PRN PRN IV NAUSEA, MRX1; Start 07/25/19 at 07:00; Stop 07/26/19 at 06:59; Status DC Sodium Chloride 1,000 ml @ 1,000 mls/hr Q1H PRN IV hypotension; Start 07/23/19 at 09:10; Stop 07/23/19 at 15:09; Status DC Albumin Human 200 ml @ 200 mls/hr 1X PRN PRN IV Hypotension Last administered on 07/23/19at 10:10; Start 07/23/19 at 09:15; Stop 07/23/19 at 15:14; Status DC Sodium Chloride 1,000 ml @ 400 mls/hr Q2H30M PRN IV PATENCY; Start 07/23/19 at 09:10; Stop 07/23/19 at 21:09; Status DC Info (PHARMACY MONITORING -- do not chart) 1 each PRN DAILY PRN MC SEE COMMENTS; Start 07/23/19 at 09:15; Stop 07/24/19 at 12:45; Status DC Info (PHARMACY MONITORING -- do not chart) 1 each PRN DAILY PRN MC SEE COMMENTS; Start 07/23/19 at 09:15; Stop 07/24/19 at 12:45; Status DC Sodium Chloride 90 meq/Potassium Chloride 15 meq/ Potassium Phosphate 10 mmol/ Magnesium Sulfate 8 meq/Calcium Gluconate 15 meq/ Multivitamins 10 ml/Chromium/ Copper/Manganese/ Seleni/Zn 0.5 ml/ Insulin Human Regular 25 unit/ Total Parenteral Nutrition/Amino Acids/Dextrose/ Fat Emulsion Intravenous 1,400 ml @ 58.333 mls/ hr TPN CONT IV Last administered on 07/23/19at 22:10; Start 07/23/19 at 22:00; Stop 07/24/19 at 21:59; Status DC Magnesium Sulfate 50 ml @ 25 mls/hr PRN DAILY PRN IV for Mag < 1.7 on am labs Last administered on 08/08/19at 17:27; Start 07/24/19 at 09:15 Sodium Chloride 90 meq/Potassium Chloride 15 meq/ Potassium Phosphate 10 mmol/ Magnesium Sulfate 8 meq/Calcium Gluconate 15 meq/ Multivitamins 10 ml/Chromium/ Copper/Manganese/ Seleni/Zn 0.5 ml/ Insulin Human Regular 25 unit/ Total Parenteral Nutrition/Amino Acids/Dextrose/ Fat Emulsion Intravenous 1,400 ml @ 58.333 mls/ hr TPN CONT IV Last administered on 07/24/19at 21:20; Start 07/24/19 at 22:00; Stop 07/25/19 at 21:59; Status DC Sodium Chloride 1,000 ml @ 1,000 mls/hr Q1H PRN IV hypotension; Start 07/24/19 at 12:23; Stop 07/24/19 at 18:22; Status DC Albumin Human 200 ml @ 200 mls/hr 1X ONCE IV Last administered on 07/24/19at 13:34; Start 07/24/19 at 12:30; Stop 07/24/19 at 13:29; Status DC Diphenhydramine HCl (Benadryl) 25 mg 1X PRN PRN IV ITCHING; Start 07/24/19 at 12:30; Stop 07/25/19 at 12:29; Status DC Diphenhydramine HCl (Benadryl) 25 mg 1X PRN PRN IV ITCHING; Start 07/24/19 at 12 :30; Stop 07/25/19 at 12:29; Status DC Info (PHARMACY MONITORING -- do not chart) 1 each PRN DAILY PRN MC SEE COMMENTS; Start 07/24/19 at 12:30; Status Cancel Bupivacaine HCl/ Epinephrine Bitart (Sensorcain-Epi 0.5%-1:[id number] Mpf) 30 ml STK-MED ONCE .ROUTE Last administered on 07/25/19at 11:44; Start 07/25/19 at 11:00; Stop 07/25/19 at 11:01; Status DC Cellulose (Surgicel Fibrillar 1x2) 1 each STK-MED ONCE .ROUTE ; Start 07/25/19 at 11:00; Stop 07/25/19 at 11:01; Status DC Sodium Chloride 90 meq/Potassium Chloride 15 meq/ Potassium Phosphate 10 mmol/ Magnesium Sulfate 12 meq/Calcium Gluconate 15 meq/ Multivitamins 10 ml/Chromium/ Copper/Manganese/ Seleni/Zn 0.5 ml/ Insulin Human Regular 25 unit/ Total Parenteral Nutrition/Amino Acids/Dextrose/ Fat Emulsion Intravenous 1,400 ml @ 58.333 mls/ hr TPN CONT IV Last administered on 07/25/19at 22:24; Start 07/25/19 at 22:00; Stop 07/26/19 at 21:59; Status DC Propofol 20 ml @ As Directed STK-MED ONCE IV ; Start 07/25/19 at 11:07; Stop 07/25/19 at 11:07; Status DC Cellulose (Surgicel Hemostat 4x8) 1 each STK-MED ONCE .ROUTE Last administered on 07/25/19at 11:44; Start 07/25/19 at 11:55; Stop 07/25/19 at 11:56; Status DC Sevoflurane (Ultane) 60 ml STK-MED ONCE IH ; Start 07/25/19 at 12:46; Stop 07/25/19 at 12:46; Status DC Sodium Chloride 1,000 ml @ 1,000 mls/hr Q1H PRN IV hypotension; Start 07/25/19 at 13:51; Stop 07/25/19 at 19:50; Status DC Albumin Human 200 ml @ 200 mls/hr 1X PRN PRN IV Hypotension Last administered on 07/25/19at 14:51; Start 07/25/19 at 14:00; Stop 07/25/19 at 19:59; Status DC Diphenhydramine HCl (Benadryl) 25 mg 1X PRN PRN IV ITCHING; Start 07/25/19 at 14:00; Stop 07/26/19 at 13:59; Status DC Diphenhydramine HCl (Benadryl) 25 mg 1X PRN PRN IV ITCHING; Start 07/25/19 at 14:00; Stop 07/26/19 at 13:59; Status DC Sodium Chloride 1,000 ml @ 400 mls/hr Q2H30M PRN IV PATENCY; Start 07/25/19 at 13:51; Stop 07/26/19 at 01:50; Status DC Info (PHARMACY MONITORING -- do not chart) 1 each PRN DAILY PRN MC SEE COMMENTS; Start 07/25/19 at 14:00; Stop 07/28/19 at 08:16; Status DC Heparin Sodium (Porcine) (Hep Lock Adult) 500 unit STK-MED ONCE IVP ; Start 07/26/19 at 09:29; Stop 07/26/19 at 09:30; Status DC Sodium Chloride 1,000 ml @ 1,000 mls/hr Q1H PRN IV hypotension; Start 07/26/19 at 10:43; Stop 07/26/19 at 16:42; Status DC Sodium Chloride 1,000 ml @ 400 mls/hr Q2H30M PRN IV PATENCY; Start 07/26/19 at 10:43; Stop 07/26/19 at 22:42; Status DC Info (PHARMACY MONITORING -- do not chart) 1 each PRN DAILY PRN MC SEE COMMENTS; Start 07/26/19 at 10:45; Status UNV Info (PHARMACY MONITORING -- do not chart) 1 each PRN DAILY PRN MC SEE COMMENTS; Start 07/26/19 at 10:45; Status UNV Sodium Chloride 90 meq/Potassium Chloride 15 meq/ Magnesium Sulfate 12 meq/Calcium Gluconate 15 meq/ Multivitamins 10 ml/Chromium/ Copper/Manganese/ Seleni/Zn 0.5 ml/ Insulin Human Regular 25 unit/ Total Parenteral Nutrition/Amino Acids/Dextrose/ Fat Emulsion Intravenous 1,400 ml @ 58.333 mls/ hr TPN CONT IV Last administered on 07/26/19at 22:13; Start 07/26/19 at 22:00; Stop 07/27/19 at 21:59; Status DC Sodium Chloride 1,000 ml @ 1,000 mls/hr Q1H PRN IV hypotension; Start 07/27/19 at 07:50; Stop 07/27/19 at 13:49; Status DC Albumin Human 200 ml @ 200 mls/hr 1X ONCE IV ; Start 07/27/19 at 08:00; Stop 07/27/19 at 08:53; Status DC Diphenhydramine HCl (Benadryl) 25 mg 1X PRN PRN IV ITCHING; Start 07/27/19 at 08:00; Stop 07/28/19 at 07:59; Status DC Diphenhydramine HCl (Benadryl) 25 mg 1X PRN PRN IV ITCHING; Start 07/27/19 at 08:00; Stop 07/28/19 at 07:59; Status DC Info (PHARMACY MONITORING -- do not chart) 1 each PRN DAILY PRN MC SEE COMMENTS; Start 07/27/19 at 08:00; Stop 07/28/19 at 08:16; Status DC Albumin Human 50 ml @ 50 mls/hr 1X ONCE IV ; Start 07/27/19 at 08:53; Stop 07/27/19 at 08:56; Status DC Albumin Human 200 ml @ 50 mls/hr PRN 1X PRN IV HYPOTENSION Last administered on 08/02/19at 11:54; Start 07/27/19 at 09:00 Meropenem 500 mg/ Sodium Chloride 50 ml @ 100 mls/hr Q12H IV Last administered on 08/16/19at 10:45; Start 07/27/19 at 10:00; Stop 08/16/19 at 12:37; Status DC Sodium Chloride 90 meq/Magnesium Sulfate 12 meq/ Calcium Gluconate 15 meq/ Multivitamins 10 ml/Chromium/ Copper/Manganese/ Seleni/Zn 0.5 ml/ Insulin Human Regular 25 unit/ Total Parenteral Nutrition/Amino Acids/Dextrose/ Fat Emulsion Intravenous 1,400 ml @ 58.333 mls/ hr TPN CONT IV Last administered on 07/27/19at 21:41; Start 07/27/19 at 22:00; Stop 07/28/19 at 21:59; Status DC Sodium Chloride 1,000 ml @ 1,000 mls/hr Q1H PRN IV hypotension; Start 07/28/19 at 07:58; Stop 07/28/19 at 13:57; Status DC Albumin Human 200 ml @ 200 mls/hr 1X PRN PRN IV Hypotension Last administered on 07/28/19at 09:30; Start 07/28/19 at 08:00; Stop 07/28/19 at 13:59; Status DC Sodium Chloride 1,000 ml @ 400 mls/hr Q2H30M PRN IV PATENCY; Start 07/28/19 at 07:58; Stop 07/28/19 at 19:57; Status DC Info (PHARMACY MONITORING -- do not chart) 1 each PRN DAILY PRN MC SEE COMMENTS; Start 07/28/19 at 08:00; Status Cancel Info (PHARMACY MONITORING -- do not chart) 1 each PRN DAILY PRN MC SEE COMMENTS; Start 07/28/19 at 08:15; Status UNV Sodium Chloride 90 meq/Potassium Phosphate 5 mmol/ Magnesium Sulfate 12 meq/Calcium Gluconate 15 meq/ Multivitamins 10 ml/Chromium/ Copper/Manganese/ Seleni/Zn 0.5 ml/ Insulin Human Regular 30 unit/ Total Parenteral Nutrition/Amino Acids/Dextrose/ Fat Emulsion Intravenous 1,400 ml @ 58.333 mls/ hr TPN CONT IV Last administered on 07/28/19at 22:08; Start 07/28/19 at 22:00; Stop 07/29/19 at 21:59; Status DC Linezolid/Dextrose 300 ml @ 300 mls/hr Q12HR IV Last administered on 08/08/19at 20:40; Start 07/29/19 at 11:00; Stop 08/09/19 at 08:10; Status DC Sodium Chloride 90 meq/Potassium Phosphate 15 mmol/ Magnesium Sulfate 12 meq/Calcium Gluconate 15 meq/ Multivitamins 10 ml/Chromium/ Copper/Manganese/ Seleni/Zn 0.5 ml/ Insulin Human Regular 30 unit/ Total Parenteral Nutrition/Amino Acids/Dextrose/ Fat Emulsion Intravenous 1,400 ml @ 58.333 mls/ hr TPN CONT IV Last administered on 07/29/19at 21:49; Start 07/29/19 at 22:00; Stop 07/30/19 at 21:59; Status DC Sodium Chloride 90 meq/Potassium Phosphate 15 mmol/ Magnesium Sulfate 12 meq/Calcium Gluconate 15 meq/ Multivitamins 10 ml/Chromium/ Copper/Manganese/ Seleni/Zn 0.5 ml/ Insulin Human Regular 40 unit/ Total Parenteral Nutrition/Amino Acids/Dextrose/ Fat Emulsion Intravenous 1,400 ml @ 58.333 mls/ hr TPN CONT IV Last administered on 07/30/19at 21:21; Start 07/30/19 at 22:00; Stop 07/31/19 at 21:59; Status DC Sodium Chloride 1,000 ml @ 1,000 mls/hr Q1H PRN IV hypotension; Start 07/30/19 at 13:26; Stop 07/30/19 at 19:25; Status DC Albumin Human 200 ml @ 200 mls/hr 1X PRN PRN IV Hypotension Last administered on 07/30/19at 15:00; Start 07/30/19 at 13:30; Stop 07/30/19 at 19:29; Status DC Sodium Chloride (Normal Saline Flush) 10 ml 1X PRN PRN IV AP catheter pack; Start 07/30/19 at 13:30; Stop 07/31/19 at 13:29; Status DC Sodium Chloride (Normal Saline Flush) 10 ml 1X PRN PRN IV BLACK TOP ROLLER catheter pack; Start 07/30/19 at 13:30; Stop 07/31/19 at 13:29; Status DC Sodium Chloride 1,000 ml @ 400 mls/hr Q2H30M PRN IV PATENCY; Start 07/30/19 at 13:26; Stop 07/31/19 at 01:25; Status DC Info (PHARMACY MONITORING -- do not chart) 1 each PRN DAILY PRN MC SEE COMMENTS; Start 07/30/19 at 13:30; Stop 07/30/19 at 13:33; Status DC Info (PHARMACY MONITORING -- do not chart) 1 each PRN DAILY PRN MC SEE COMMENTS; Start 07/30/19 at 13:30; Stop 07/30/19 at 13:34; Status DC Sodium Chloride 90 meq/Potassium Phosphate 19 mmol/ Magnesium Sulfate 12 meq/Calcium Gluconate 15 meq/ Multivitamins 10 ml/Chromium/ Copper/Manganese/ Seleni/Zn 0.5 ml/ Insulin Human Regular 40 unit/ Total Parenteral Nutrition/Amino Acids/Dextrose/ Fat Emulsion Intravenous 1,400 ml @ 58.333 mls/ hr TPN CONT IV Last administered on 07/31/19at 21:54; Start 07/31/19 at 22:00; Stop 08/01/19 at 21:59; Status DC Sodium Chloride 1,000 ml @ 1,000 mls/hr Q1H PRN IV hypotension; Start 08/01/19 at 09:35; Stop 08/01/19 at 15:34; Status DC Albumin Human 200 ml @ 200 mls/hr 1X PRN PRN IV Hypotension; Start 08/01/19 at 09:45; Stop 08/01/19 at 15:44; Status DC Diphenhydramine HCl (Benadryl) 25 mg 1X PRN PRN IV ITCHING; Start 08/01/19 at 09:45; Stop 08/02/19 at 09:44; Status DC Diphenhydramine HCl (Benadryl) 25 mg 1X PRN PRN IV ITCHING; Start 08/01/19 at 09:45; Stop 08/02/19 at 09:44; Status DC Sodium Chloride 1,000 ml @ 400 mls/hr Q2H30M PRN IV PATENCY; Start 08/01/19 at 09:35; Stop 08/01/19 at 21:34; Status DC Info (PHARMACY MONITORING -- do not chart) 1 each PRN DAILY PRN MC SEE COMMENTS; Start 08/01/19 at 09:45; Status Cancel Sodium Chloride 100 meq/Potassium Phosphate 19 mmol/ Magnesium Sulfate 12 meq/Calcium Gluconate 15 meq/ Multivitamins 10 ml/Chromium/ Copper/Manganese/ Seleni/Zn 0.5 ml/ Insulin Human Regular 40 unit/ Potassium Chloride 20 meq/ Total Parenteral Nutrition/Amino Acids/Dextrose/ Fat Emulsion Intravenous 1,400 ml @ 58.333 mls/ hr TPN CONT IV Last administered on 08/01/19at 22:02; Start 08/01/19 at 22:00; Stop 08/02/19 at 21:59; Status DC Furosemide (Lasix) 40 mg 1X ONCE IVP Last administered on 08/01/19at 14:39; Start 08/01/19 at 14:30; Stop 08/01/19 at 14:31; Status DC Metronidazole 100 ml @ 100 mls/hr Q8HRS IV Last administered on 08/09/19at 06:04; Start 08/02/19 at 10:00; Stop 08/09/19 at 08:10; Status DC Sodium Chloride 1,000 ml @ 1,000 mls/hr Q1H PRN IV hypotension; Start 08/02/19 at 08:00; Stop 08/02/19 at 13:59; Status DC Albumin Human 200 ml @ 200 mls/hr 1X PRN PRN IV Hypotension; Start 08/02/19 at 08:00; Stop 08/02/19 at 13:59; Status DC Sodium Chloride 1,000 ml @ 400 mls/hr Q2H30M PRN IV PATENCY; Start 08/02/19 at 08:00; Stop 08/02/19 at 19:59; Status DC Info (PHARMACY MONITORING -- do not chart) 1 each PRN DAILY PRN MC SEE COMMENTS; Start 08/02/19 at 11:30; Status UNV Info (PHARMACY MONITORING -- do not chart) 1 each PRN DAILY PRN MC SEE COMMENTS; Start 08/02/19 at 11:30; Stop 08/04/19 at 12:13; Status DC Sodium Chloride 100 meq/Potassium Phosphate 19 mmol/ Magnesium Sulfate 12 meq/Calcium Gluconate 15 meq/ Multivitamins 10 ml/Chromium/ Copper/Manganese/ Seleni/Zn 0.5 ml/ Insulin Human Regular 40 unit/ Potassium Chloride 20 meq/ Total Parenteral Nutrition/Amino Acids/Dextrose/ Fat Emulsion Intravenous 1,400 ml @ 58.333 mls/ hr TPN CONT IV Last administered on 08/02/19at 21:52; Start 08/02/19 at 22:00; Stop 08/03/19 at 21:59; Status DC Sodium Chloride (Normal Saline Flush) 10 ml QSHIFT PRN IV AFTER MEDS AND BLOOD DRAWS; Start 08/02/19 at 15:00; Stop 08/30/19 at 11:27; Status DC Sodium Chloride (Normal Saline Flush) 10 ml PRN Q5MIN PRN IV AFTER MEDS AND BLOOD DRAWS; Start 08/02/19 at 15:00 Sodium Chloride (Normal Saline Flush) 20 ml PRN Q5MIN PRN IV AFTER MEDS AND BLOOD DRAWS; Start 08/02/19 at 15:00 Sodium Chloride 100 meq/Potassium Phosphate 19 mmol/ Magnesium Sulfate 12 meq/Calcium Gluconate 15 meq/ Multivitamins 10 ml/Chromium/ Copper/Manganese/ Seleni/Zn 0.5 ml/ Insulin Human Regular 40 unit/ Potassium Chloride 20 meq/ Total Parenteral Nutrition/Amino Acids/Dextrose/ Fat Emulsion Intravenous 1,400 ml @ 58.333 mls/ hr TPN CONT IV Last administered on 08/03/19at 21:20; Start 08/03/19 at 22:00; Stop 08/04/19 at 21:59; Status DC Lidocaine HCl (Buffered Lidocaine 1%) 3 ml STK-MED ONCE .ROUTE ; Start 08/03/19 at 13:16; Stop 08/03/19 at 13:16; Status DC Lidocaine HCl (Buffered Lidocaine 1%) 6 ml 1X ONCE INJ Last administered on 08/03/19at 13:45; Start 08/03/19 at 13:30; Stop 08/03/19 at 13:31; Status DC Albumin Human 100 ml @ 100 mls/hr 1X ONCE IV Last administered on 08/03/19at 15:41; Start 08/03/19 at 15:00; Stop 08/03/19 at 15:59; Status DC Albumin Human 50 ml @ 50 mls/hr 1X ONCE IV Last administered on 08/03/19at 15:00; Start 08/03/19 at 15:00; Stop 08/03/19 at 15:59; Status DC Info (PHARMACY MONITORING -- do not chart) 1 each PRN DAILY PRN MC SEE COMMENTS; Start 08/04/19 at 11:30; Status Cancel Info (PHARMACY MONITORING -- do not chart) 1 each PRN DAILY PRN MC SEE COMMENTS; Start 08/04/19 at 11:30; Status UNV Sodium Chloride 100 meq/Potassium Phosphate 10 mmol/ Magnesium Sulfate 12 meq/Calcium Gluconate 15 meq/ Multivitamins 10 ml/Chromium/ Copper/Manganese/ Seleni/Zn 0.5 ml/ Insulin Human Regular 35 unit/ Potassium Chloride 20 meq/ Total Parenteral Nutrition/Amino Acids/Dextrose/ Fat Emulsion Intravenous 1,400 ml @ 58.333 mls/ hr TPN CONT IV Last administered on 08/04/19at 22:10; Start 08/04/19 at 22:00; Stop 08/05/19 at 21:59; Status DC Sodium Chloride 100 meq/Potassium Phosphate 5 mmol/ Magnesium Sulfate 12 meq/Calcium Gluconate 15 meq/ Multivitamins 10 ml/Chromium/ Copper/Manganese/ Seleni/Zn 0.5 ml/ Insulin Human Regular 35 unit/ Potassium Chloride 20 meq/ Tota l Parenteral Nutrition/Amino Acids/Dextrose/ Fat Emulsion Intravenous 1,400 ml @ 58.333 mls/ hr TPN CONT IV Last administered on 08/05/19at 22:59; Start 08/05/19 at 22:00; Stop 08/06/19 at 21:59; Status DC Sodium Chloride 1,000 ml @ 1,000 mls/hr Q1H PRN IV hypotension; Start 08/06/19 at 08:27; Stop 08/06/19 at 14:26; Status DC Albumin Human 200 ml @ 200 mls/hr 1X PRN PRN IV Hypotension Last administered on 08/06/19at 09:18; Start 08/06/19 at 08:30; Stop 08/06/19 at 14:29; Status DC Sodium Chloride 1,000 ml @ 400 mls/hr Q2H30M PRN IV PATENCY; Start 08/06/19 at 08:27; Stop 08/06/19 at 20:26; Status DC Info (PHARMACY MONITORING -- do not chart) 1 each PRN DAILY PRN MC SEE COMMENTS; Start 08/06/19 at 08:30; Status Cancel Info (PHARMACY MONITORING -- do not chart) 1 each PRN DAILY PRN MC SEE COMMENTS; Start 08/06/19 at 08:30; Stop 08/14/19 at 13:10; Status DC Sodium Chloride 100 meq/Potassium Chloride 40 meq/ Magnesium Sulfate 15 meq/Calcium Gluconate 15 meq/ Multivitamins 10 ml/Chromium/ Copper/Manganese/ Seleni/Zn 0.5 ml/ Insulin Human Regular 35 unit/ Total Parenteral Nutrition/Amino Acids/Dextrose/ Fat Emulsion Intravenous 1,400 ml @ 58.333 mls/ hr TPN CONT IV Last administered on 08/06/19at 22:00; Start 08/06/19 at 22:00; Stop 08/07/19 at 21:59; Status DC Potassium Chloride/Water 100 ml @ 100 mls/hr 1X ONCE IV Last administered on 08/06/19at 17:28; Start 08/06/19 at 14:45; Stop 08/06/19 at 15:44; Status DC Sodium Chloride 100 meq/Potassium Chloride 40 meq/ Magnesium Sulfate 15 meq/Calcium Gluconate 15 meq/ Multivitamins 10 ml/Chromium/ Copper/Manganese/ Seleni/Zn 0.5 ml/ Insulin Human Regular 35 unit/ Total Parenteral Nutrition/Amino Acids/Dextrose/ Fat Emulsion Intravenous 1,400 ml @ 58.333 mls/ hr TPN CONT IV Last administered on 08/07/19at 22:46; Start 08/07/19 at 22:00; Stop 08/08/19 at 21:59; Status DC Sodium Chloride 100 meq/Potassium Chloride 40 meq/ Magnesium Sulfate 20 meq/Calcium Gluconate 15 meq/ Multivitamins 10 ml/Chromium/ Copper/Manganese/ Seleni/Zn 0.5 ml/ Insulin Human Regular 35 unit/ Total Parenteral Nutrition/Amino Acids/Dextrose/ Fat Emulsion Intravenous 1,400 ml @ 58.333 mls/ hr TPN CONT IV Last administered on 08/08/19at 22:31; Start 08/08/19 at 22:00; Stop 08/09/19 at 21:59; Status DC Fentanyl Citrate (Fentanyl 2ml Vial) 50 mcg PRN Q2HR PRN IVP PAIN Last administered on 08/15/19at 13:32; Start 08/08/19 at 21:00; Stop 08/16/19 at 12:53; Status DC Fentanyl Citrate (Fentanyl 2ml Vial) 25 mcg PRN Q2HR PRN IVP PAIN; Start 08/08/19 at 21:00; Stop 08/16/19 at 12:54; Status DC Enoxaparin Sodium (Lovenox 100mg Syringe) 100 mg Q12HR SQ ; Start 08/09/19 at 21:00; Status UNV Amino Acids/ Glycerin/ Electrolytes 1,000 ml @ 75 mls/hr [id number] IV ; Start 08/08/19 at 21:15; Status UNV Sodium Chloride 1,000 ml @ 1,000 mls/hr Q1H PRN IV hypotension; Start 08/09/19 at 07:56; Stop 08/09/19 at 13:55; Status DC Albumin Human 200 ml @ 200 mls/hr 1X PRN PRN IV Hypotension Last administered on 08/09/19at 08:40; Start 08/09/19 at 08:00; Stop 08/09/19 at 13:59; Status DC Sodium Chloride 1,000 ml @ 400 mls/hr Q2H30M PRN IV PATENCY; Start 08/09/19 at 07:56; Stop 08/09/19 at 19:55; Status DC Info (PHARMACY MONITORING -- do not chart) 1 each PRN DAILY PRN MC SEE COMMENTS; Start 08/09/19 at 08:00; Status UNV Info (PHARMACY MONITORING -- do not chart) 1 each PRN DAILY PRN MC SEE COMMENTS; Start 08/09/19 at 08:00; Status UNV Daptomycin 430 mg/ Sodium Chloride 50 ml @ 100 mls/hr Q24H IV Last administered on 08/09/19at 12:35; Start 08/09/19 at 09:00; Stop 08/09/19 at 12:49; Status DC Sodium Chloride 100 meq/Potassium Chloride 40 meq/ Magnesium Sulfate 20 meq/Calcium Gluconate 15 meq/ Multivitamins 10 ml/Chromium/ Copper/Manganese/ Seleni/Zn 0.5 ml/ Insulin Human Regular 35 unit/ Total Parenteral Nutrition/Amino Acids/Dextrose/ Fat Emulsion Intravenous 1,400 ml @ 58.333 mls/ hr TPN CONT IV Last administered on 08/09/19at 21:26; Start 08/09/19 at 22:00; Stop 08/10/19 at 21:59; Status DC Daptomycin 430 mg/ Sodium Chloride 50 ml @ 100 mls/hr Q48H IV ; Start 08/11/19 at 09:00; Stop 08/10/19 at 11:55; Status DC Sodium Chloride 100 meq/Potassium Chloride 40 meq/ Magnesium Sulfate 20 meq/Calcium Gluconate 15 meq/ Multivitamins 10 ml/Chromium/ Copper/Manganese/ Seleni/Zn 0.5 ml/ Insulin Human Regular 35 unit/ Total Parenteral Nutrition/Amino Acids/Dextrose/ Fat Emulsion Intravenous 1,400 ml @ 58.333 mls/ hr TPN CONT IV Last administered on 08/10/19at 22:27; Start 08/10/19 at 22:00; Stop 08/11/19 at 21:59; Status DC Daptomycin 430 mg/ Sodium Chloride 50 ml @ 100 mls/hr Q24H IV Last administered on 08/12/19at 15:07; Start 08/10/19 at 13:00; Stop 08/13/19 at 13:15; Status DC Sodium Chloride 100 meq/Potassium Chloride 40 meq/ Magnesium Sulfate 20 meq/Calcium Gluconate 10 meq/ Multivitamins 10 ml/Chromium/ Copper/Manganese/ Seleni/Zn 0.5 ml/ Insulin Human Regular 35 unit/ Total Parenteral Nutrition/Amino Acids/Dextrose/ Fat Emulsion Intravenous 1,400 ml @ 58.333 mls/ hr TPN CONT IV Last administered on 08/12/19at 00:06; Start 08/11/19 at 22:00; Stop 08/12/19 at 21:59; Status DC Alteplase, Recombinant (Cathflo For Central Catheter Clearance) 1 mg 1X ONCE INT CAT Last administered on 08/12/19at 11:44; Start 08/12/19 at 10:45; Stop 08/12/19 at 10:46; Status DC Ondansetron HCl (Zofran) 4 mg PRN Q6HRS PRN IV NAUSEA/VOMITING; Start 08/15/19 at 07:00; Stop 08/16/19 at 06:59; Status DC Fentanyl Citrate (Fentanyl 2ml Vial) 25 mcg PRN Q5MIN PRN IV MILD PAIN 1-3; Start 08/15/19 at 07:00; Stop 08/16/19 at 06:59; Status DC Fentanyl Citrate (Fentanyl 2ml Vial) 50 mcg PRN Q5MIN PRN IV MODERATE TO SEVERE PAIN Last administered on 08/15/19at 10:17; Start 08/15/19 at 07:00; Stop 08/16/19 at 06:59; Status DC Ringer's Solution 1,000 ml @ 30 mls/hr Q24H IV ; Start 08/15/19 at 07:00; Stop 08/15/19 at 18:59; Status DC Lidocaine HCl (Xylocaine-Mpf 1% 2ml Vial) 2 ml PRN 1X PRN ID PRIOR TO IV START; Start 08/15/19 at 07:00; Stop 08/16/19 at 06:59; Status DC Prochlorperazine Edisylate (Compazine) 5 mg PACU PRN PRN IV NAUSEA, MRX1; Start 08/15/19 at 07:00; Stop 08/16/19 at 06:59; Status DC Sodium Acetate 50 meq/Potassium Acetate 55 meq/ Magnesium Sulfate 20 meq/Calcium Gluconate 10 meq/ Multivitamins 10 ml/Chromium/ Copper/Manganese/ Seleni/Zn 0.5 ml/ Insulin Human Regular 35 unit/ Total Parenteral Nutrition/Amino Acids/Dextrose/ Fat Emulsion Intravenous 1,400 ml @ 58.333 mls/ hr TPN CONT IV ; Start 08/12/19 at 22:00; Stop 08/12/19 at 14:15; Status DC Sodium Acetate 50 meq/Potassium Acetate 55 meq/ Magnesium Sulfate 20 meq/Calcium Gluconate 10 meq/ Multivitamins 10 ml/Chromium/ Copper/Manganese/ Seleni/Zn 0.5 ml/ Insulin Human Regular 35 unit/ Total Parenteral Nutrition/Amino Acids/Dextrose/ Fat Emulsion Intravenous 1,800 ml @ 75 mls/hr TPN CONT IV Last administered on 08/12/19at 22:38; Start 08/12/19 at 22:00; Stop 08/13/19 at 21:59; Status DC Sodium Chloride 1,000 ml @ 1,000 mls/hr Q1H PRN IV hypotension; Start 08/12/19 at 15:31; Stop 08/12/19 at 21:30; Status DC Diphenhydramine HCl (Benadryl) 25 mg 1X PRN PRN IV ITCHING; Start 08/12/19 at 15:45; Stop 08/13/19 at 15:44; Status DC Diphenhydramine HCl (Benadryl) 25 mg 1X PRN PRN IV ITCHING; Start 08/12/19 at 15:45; Stop 08/13/19 at 15:44; Status DC Sodium Chloride 1,000 ml @ 400 mls/hr Q2H30M PRN IV PATENCY; Start 08/12/19 at 15:31; Stop 08/13/19 at 03:30; Status DC Info (PHARMACY MONITORING -- do not chart) 1 each PRN DAILY PRN MC SEE COMMENTS; Start 08/12/19 at 15:45 Sodium Acetate 50 meq/Potassium Acetate 55 meq/ Magnesium Sulfate 20 meq/Calcium Gluconate 10 meq/ Multivitamins 10 ml/Chromium/ Copper/Manganese/ Seleni/Zn 0.5 ml/ Insulin Human Regular 35 unit/ Total Parenteral Nutrition/Amino Acids/Dextrose/ Fat Emulsion Intravenous 1,800 ml @ 75 mls/hr TPN CONT IV Last administered on 08/13/19at 22:03; Start 08/13/19 at 22:00; Stop 08/14/19 at 21:59; Status DC Daptomycin 430 mg/ Sodium Chloride 50 ml @ 100 mls/hr Q24H IV Last administered on 08/18/19at 13:00; Start 08/13/19 at 13:00; Stop 08/18/19 at 20:58; Status DC Heparin Sodium (Porcine) 1000 unit/Sodium Chloride 1,001 ml @ 1,001 mls/hr 1X ONCE IRR ; Start 08/15/19 at 06:00; Stop 08/15/19 at 06:59; Status DC Potassium Acetate 55 meq/Magnesium Sulfate 20 meq/ Calcium Gluconate 10 meq/ Multivitamins 10 ml/Chromium/ Copper/Manganese/ Seleni/Zn 0.5 ml/ Insulin Human Regular 35 unit/ Total Parenteral Nutrition/Amino Acids/Dextrose/ Fat Emulsion Intravenous 1,920 ml @ 80 mls/hr TPN CONT IV Last administered on 08/14/19at 22:10; Start 08/14/19 at 22:00; Stop 08/15/19 at 21:59; Status DC Dexamethasone Sodium Phosphate (Decadron) 4 mg STK-MED ONCE .ROUTE ; Start 08/15/19 at 10:56; Stop 08/15/19 at 10:57; Status DC Ondansetron HCl (Zofran) 4 mg STK-MED ONCE .ROUTE ; Start 08/15/19 at 10:56; Stop 08/15/19 at 10:57; Status DC Rocuronium Lucan (Zemuron) 50 mg STK-MED ONCE .ROUTE ; Start 08/15/19 at 10:56; Stop 08/15/19 at 10:57; Status DC Fentanyl Citrate (Fentanyl 2ml Vial) 100 mcg STK-MED ONCE .ROUTE ; Start 08/15/19 at 10:56; Stop 08/15/19 at 10:57; Status DC Bupivacaine HCl/ Epinephrine Bitart (Sensorcain-Epi 0.5%-1:513345 Mpf) 30 ml STK-MED ONCE .ROUTE Last administered on 08/15/19at 12:01; Start 08/15/19 at 10:58; Stop 08/15/19 at 10:58; Status DC Cellulose (Surgicel Hemostat 2x14) 1 each STK-MED ONCE .ROUTE ; Start 08/15/19 at 10:58; Stop 08/15/19 at 10:59; Status DC Iohexol (Omnipaque 300 Mg/ml) 50 ml STK-MED ONCE .ROUTE ; Start 08/15/19 at 10: 58; Stop 08/15/19 at 10:59; Status DC Cellulose (Surgicel Hemostat 4x8) 1 each STK-MED ONCE .ROUTE ; Start 08/15/19 at 10:58; Stop 08/15/19 at 10:59; Status DC Bisacodyl (Dulcolax Supp) 10 mg STK-MED ONCE .ROUTE ; Start 08/15/19 at 10:59; Stop 08/15/19 at 10:59; Status DC Heparin Sodium (Porcine) 1000 unit/Sodium Chloride 1,001 ml @ 1,001 mls/hr 1X ONCE IRR ; Start 08/15/19 at 12:00; Stop 08/15/19 at 12:59; Status DC Propofol 20 ml @ As Directed STK-MED ONCE IV ; Start 08/15/19 at 11:05; Stop 08/15/19 at 11:05; Status DC Sevoflurane (Ultane) 90 ml STK-MED ONCE IH ; Start 08/15/19 at 11:05; Stop 08/15/19 at 11:05; Status DC Sevoflurane (Ultane) 60 ml STK-MED ONCE IH ; Start 08/15/19 at 12:26; Stop 08/15/19 at 12:27; Status DC Propofol 20 ml @ As Directed STK-MED ONCE IV ; Start 08/15/19 at 12:26; Stop 08/15/19 at 12:27; Status DC Phenylephrine HCl (PHENYLEPHRINE in 0.9% NACL PF) 1 mg STK-MED ONCE IV ; Start 08/15/19 at 12:34; Stop 08/15/19 at 12:34; Status DC Heparin Sodium (Porcine) (Heparin Sodium) 5,000 unit Q12HR SQ Last administered on 08/24/19at 20:57; Start 08/15/19 at 21:00; Stop 08/25/19 at 09:59; Status DC Sodium Chloride (Normal Saline Flush) 3 ml QSHIFT PRN IV AFTER MEDS AND BLOOD DRAWS; Start 08/15/19 at 13:45 Naloxone HCl (Narcan) 0.4 mg PRN Q2MIN PRN IV SEE INSTRUCTIONS; Start 08/15/19 at 13:45 Sodium Chloride 1,000 ml @ 25 mls/hr Q24H IV Last administered on 09/01/19at 14:17; Start 08/15/19 at 13:37 Naloxone HCl (Narcan) 0.4 mg PRN Q2MIN PRN IV SEE INSTRUCTIONS; Start 08/15/19 at 14:30; Status UNV Sodium Chloride 1,000 ml @ 25 mls/hr Q24H IV ; Start 08/15/19 at 14:30; Status UNV Hydromorphone HCl 30 ml @ 0 mls/hr CONT PRN PRN IV PER PROTOCOL Last administered on 08/20/19at 16:08; Start 08/15/19 at 14:30; Stop 08/22/19 at 08:55; Status DC Potassium Acetate 55 meq/Magnesium Sulfate 20 meq/ Calcium Gluconate 10 meq/ Multivitamins 10 ml/Chromium/ Copper/Manganese/ Seleni/Zn 0.5 ml/ Insulin Human Regular 35 unit/ Total Parenteral Nutrition/Amino Acids/Dextrose/ Fat Emulsion Intravenous 1,920 ml @ 80 mls/hr TPN CONT IV Last administered on 08/15/19at 22:01; Start 08/15/19 at 22:00; Stop 08/16/19 at 21:59; Status DC Bumetanide (Bumex) 2 mg [id number] IV Last administered on 08/19/19at 13:50; Start 08/16/19 at 14:00; Stop 08/20/19 at 14:10; Status DC Meropenem 1 gm/ Sodium Chloride 100 ml @ 200 mls/hr Q8HRS IV Last administered on 09/03/19at 06:46; Start 08/16/19 at 14:00 Potassium Acetate 55 meq/Magnesium Sulfate 20 meq/ Calcium Gluconate 10 meq/ Multivitamins 10 ml/Chromium/ Copper/Manganese/ Seleni/Zn 0.5 ml/ Insulin Human Regular 35 unit/ Total Parenteral Nutrition/Amino Acids/Dextrose/ Fat Emulsion Intravenous 1,920 ml @ 80 mls/hr TPN CONT IV Last administered on 08/16/19at 22:02; Start 08/16/19 at 22:00; Stop 08/17/19 at 21:59; Status DC Hydromorphone HCl (Dilaudid Standard MILLER HEAD WET PROCESS) 12 mg STK-MED ONCE IV ; Start 08/15/19 at 14:35; Stop 08/16/19 at 13:53; Status DC Artificial Tears (Artificial Tears) 1 drop PRN Q15MIN PRN OU DRY EYE Last administered on 08/26/19at 22:00; Start 08/17/19 at 05:30 Hydromorphone HCl (Dilaudid Standard MILLER HEAD WET PROCESS) 12 mg STK-MED ONCE IV ; Start 08/16/19 at 12:05; Stop 08/17/19 at 09:15; Status DC Potassium Acetate 65 meq/Magnesium Sulfate 20 meq/ Calcium Gluconate 10 meq/ Multivitamins 10 ml/Chromium/ Copper/Manganese/ Seleni/Zn 0.5 ml/ Insulin Human Regular 30 unit/ Total Parenteral Nutrition/Amino Acids/Dextrose/ Fat Emulsion Intravenous 1,920 ml @ 80 mls/hr TPN CONT IV Last administered on 08/17/19at 22:22; Start 08/17/19 at 22:00; Stop 08/18/19 at 21:59; Status DC Cyclobenzaprine HCl (Flexeril) 10 mg PRN Q6HRS PRN PO MUSCLE SPASMS; Start 08/18/19 at 10:45 Potassium Acetate 55 meq/Magnesium Sulfate 20 meq/ Calcium Gluconate 10 meq/ Multivitamins 10 ml/Chromium/ Copper/Manganese/ Seleni/Zn 0.5 ml/ Insulin Human Regular 30 unit/ Total Parenteral Nutrition/Amino Acids/Dextrose/ Fat Emulsion Intravenous 1,920 ml @ 80 mls/hr TPN CONT IV Last administered on 08/19/19at 01:00; Start 08/18/19 at 22:00; Stop 08/19/19 at 21:59; Status DC Magnesium Sulfate 50 ml @ 25 mls/hr 1X ONCE IV Last administered on 08/18/19at 17:18; Start 08/18/19 at 12:45; Stop 08/18/19 at 14:44; Status DC Potassium Chloride/Water 100 ml @ 100 mls/hr 1X ONCE IV Last administered on 08/19/19at 11:27; Start 08/19/19 at 12:00; Stop 08/19/19 at 12:59; Status DC Hydromorphone HCl (Dilaudid Standard MILLER HEAD WET PROCESS) 12 mg STK-MED ONCE IV ; Start 08/17/19 at 10:50; Stop 08/19/19 at 11:02; Status DC Hydromorphone HCl (Dilaudid Standard MILLER HEAD WET PROCESS) 12 mg STK-MED ONCE IV ; Start 08/18/19 at 13:47; Stop 08/19/19 at 11:03; Status DC Potassium Acetate 30 meq/Magnesium Sulfate 20 meq/ Calcium Gluconate 10 meq/ Multivitamins 10 ml/Chromium/ Copper/Manganese/ Seleni/Zn 0.5 ml/ Insulin Human Regular 30 unit/ Potassium Chloride 30 meq/ Total Parenteral Nutrition/Amino Acids/Dextrose/ Fat Emulsion Intravenous 1,920 ml @ 80 mls/hr TPN CONT IV Last administered on 08/19/19at 22:34; Start 08/19/19 at 22:00; Stop 08/20/19 at 21:59; Status DC Potassium Chloride/Water 100 ml @ 100 mls/hr Q1H IV Last administered on 08/20/19at 13:05; Start 08/20/19 at 07:00; Stop 08/20/19 at 10:59; Status DC Magnesium Sulfate 50 ml @ 25 mls/hr 1X ONCE IV Last administered on 08/20/19at 10:34; Start 08/20/19 at 10:30; Stop 08/20/19 at 12:29; Status DC Potassium Chloride 75 meq/ Magnesium Sulfate 20 meq/Calcium Gluconate 10 meq/ Multivitamins 10 ml/Chromium/ Copper/Manganese/ Seleni/Zn 0.5 ml/ Insulin Human Regular 30 unit/ Total Parenteral Nutrition/Amino Acids/Dextrose/ Fat Emulsion Intravenous 1,920 ml @ 80 mls/hr TPN CONT IV Last administered on 08/20/19at 21:51; Start 08/20/19 at 22:00; Stop 08/21/19 at 22:00; Status DC Potassium Chloride 75 meq/ Magnesium Sulfate 20 meq/Calcium Gluconate 10 meq/ Multivitamins 10 ml/Chromium/ Copper/Manganese/ Seleni/Zn 0.5 ml/ Insulin Human Regular 25 unit/ Total Parenteral Nutrition/Amino Acids/Dextrose/ Fat Emulsion Intravenous 1,920 ml @ 80 mls/hr TPN CONT IV Last administered on 08/21/19at 22:04; Start 08/21/19 at 22:00; Stop 08/22/19 at 21:59; Status DC Hydromorphone HCl (Dilaudid) 0.4 mg PRN Q4HRS PRN IVP PAIN Last administered on 08/22/19at 10:57; Start 08/22/19 at 09:00; Stop 08/22/19 at 18:59; Status DC Micafungin Sodium 100 mg/Dextrose 100 ml @ 100 mls/hr Q24H IV Last administered on 09/02/19at 11:08; Start 08/22/19 at 11:00 Daptomycin 485 mg/ Sodium Chloride 50 ml @ 100 mls/hr Q24H IV Last administered on 08/29/19at 13:10; Start 08/22/19 at 11:00; Stop 08/30/19 at 07:44; Status DC Potassium Chloride 75 meq/ Magnesium Sulfate 15 meq/Calcium Gluconate 8 meq/ Multivitamins 10 ml/Chromium/ Copper/Manganese/ Seleni/Zn 0.5 ml/ Insulin Human Regular 25 unit/ Total Parenteral Nutrition/Amino Acids/Dextrose/ Fat Emulsion Intravenous 1,920 ml @ 80 mls/hr TPN CONT IV Last administered on 08/22/19at 23:08; Start 08/22/19 at 22:00; Stop 08/23/19 at 21:59; Status DC Haloperidol Lactate (Haldol Inj) 3 mg 1X ONCE IVP Last administered on 08/22/19at 14:37; Start 08/22/19 at 14:30; Stop 08/22/19 at 14:31; Status DC Hydromorphone HCl (Dilaudid) 1 mg PRN Q4HRS PRN IVP PAIN Last administered on 09/03/19at 04:41; Start 08/22/19 at 19:00 Potassium Chloride 75 meq/ Magnesium Sulfate 15 meq/Calcium Gluconate 8 meq/ Multivitamins 10 ml/Chromium/ Copper/Manganese/ Seleni/Zn 0.5 ml/ Insulin Human Regular 20 unit/ Total Parenteral Nutrition/Amino Acids/Dextrose/ Fat Emulsion Intravenous 1,920 ml @ 80 mls/hr TPN CONT IV Last administered on 08/23/19at 22:10; Start 08/23/19 at 22:00; Stop 08/24/19 at 21:59; Status DC Lidocaine HCl (Buffered Lidocaine 1%) 3 ml STK-MED ONCE .ROUTE ; Start 08/24/19 at 11:31; Stop 08/24/19 at 11:31; Status DC Lidocaine HCl (Buffered Lidocaine 1%) 3 ml STK-MED ONCE .ROUTE ; Start 08/24/19 at 12:28; Stop 08/24/19 at 12:29; Status DC Lidocaine HCl (Buffered Lidocaine 1%) 6 ml 1X ONCE INJ Last administered on 08/24/19at 12:53; Start 08/24/19 at 12:45; Stop 08/24/19 at 12:46; Status DC Potassium Chloride 75 meq/ Magnesium Sulfate 15 meq/Calcium Gluconate 8 meq/ Multivitamins 10 ml/Chromium/ Copper/Manganese/ Seleni/Zn 0.5 ml/ Insulin Human Regular 20 unit/ Total Parenteral Nutrition/Amino Acids/Dextrose/ Fat Emulsion Intravenous 1,920 ml @ 80 mls/hr TPN CONT IV Last administered on 08/24/19at 22:00; Start 08/24/19 at 22:00; Stop 08/25/19 at 21:59; Status DC Potassium Chloride 75 meq/ Magnesium Sulfate 15 meq/Calcium Gluconate 8 meq/ Multivitamins 10 ml/Chromium/ Copper/Manganese/ Seleni/Zn 0.5 ml/ Insulin Human Regular 15 unit/ Total Parenteral Nutrition/Amino Acids/Dextrose/ Fat Emulsion Intravenous 1,920 ml @ 80 mls/hr TPN CONT IV Last administered on 08/25/19at 22:28; Start 08/25/19 at 22:00; Stop 08/26/19 at 21:59; Status DC Vecuronium Lucan (Norcuron Bolus) 6 mg PRN Q6HRS PRN IV VENT ASYNCHRONY; Start 08/25/19 at 19:15; Stop 08/25/19 at 19:35; Status DC Bumetanide (Bumex) 2 mg 1X ONCE IV Last administered on 08/25/19at 22:09; Start 08/25/19 at 19:45; Stop 08/25/19 at 19:46; Status DC Lidocaine HCl (Buffered Lidocaine 1%) 3 ml STK-MED ONCE .ROUTE ; Start 08/26/19 at 07:59; Stop 08/26/19 at 07:59; Status DC Midazolam HCl (Versed) 5 mg STK-MED ONCE .ROUTE ; Start 08/26/19 at 08:36; Stop 08/26/19 at 08:36; Status DC Fentanyl Citrate (Fentanyl 5ml Vial) 250 mcg STK-MED ONCE .ROUTE ; Start 08/26/19 at 08:36; Stop 08/26/19 at 08:37; Status DC Lidocaine HCl (Buffered Lidocaine 1%) 3 ml 1X ONCE IJ Last administered on 08/26/19at 09:30; Start 08/26/19 at 09:15; Stop 08/26/19 at 09:16; Status DC Midazolam HCl (Versed) 5 mg 1X ONCE IV Last administered on 08/26/19at 09:30; Start 08/26/19 at 09:15; Stop 08/26/19 at 09:16; Status DC Fentanyl Citrate (Fentanyl 5ml Vial) 250 mcg 1X ONCE IV Last administered on 08/26/19at 09:30; Start 08/26/19 at 09:15; Stop 08/26/19 at 09:16; Status DC Bumetanide (Bumex) 2 mg DAILY IV Last administered on 09/03/19at 08:57; Start 08/26/19 at 10:00 Potassium Chloride 75 meq/ Magnesium Sulfate 15 meq/ Multivitamins 10 ml/Chromium/ Copper/Manganese/ Seleni/Zn 0.5 ml/ Insulin Human Regular 15 unit/ Total Parenteral Nutrition/Amino Acids/Dextrose/ Fat Emulsion Intravenous 1,920 ml @ 80 mls/hr TPN CONT IV Last administered on 08/26/19at 21:59; Start 08/26/19 at 22:00; Stop 08/27/19 at 21:59; Status DC Metoclopramide HCl (Reglan Vial) 10 mg PRN Q3HRS PRN IVP NAUSEA/VOMITING-3rd choice Last administered on 09/01/19at 04:25; Start 08/27/19 at 16:45 Potassium Chloride 75 meq/ Magnesium Sulfate 15 meq/ Multivitamins 10 ml/Chromium/ Copper/Manganese/ Seleni/Zn 0.5 ml/ Insulin Human Regular 15 unit/ Total Parenteral Nutrition/Amino Acids/Dextrose/ Fat Emulsion Intravenous 1,920 ml @ 80 mls/hr TPN CONT IV Last administered on 08/27/19at 22:41; Start 08/27/19 at 22:00; Stop 08/28/19 at 21:59; Status DC Magnesium Sulfate 50 ml @ 25 mls/hr 1X ONCE IV Last administered on 08/28/19at 10:44; Start 08/28/19 at 09:00; Stop 08/28/19 at 10:59; Status DC Potassium Chloride/Water 100 ml @ 100 mls/hr 1X ONCE IV Last administered on 08/28/19at 09:37; Start 08/28/19 at 09:00; Stop 08/28/19 at 09:59; Status DC Duloxetine HCl (Cymbalta) 30 mg DAILY PO Last administered on 08/29/19at 09:48; Start 08/28/19 at 14:00; Stop 08/31/19 at 10:25; Status DC Potassium Chloride 80 meq/ Magnesium Sulfate 20 meq/ Multivitamins 10 ml/Chromium/ Copper/Manganese/ Seleni/Zn 0.5 ml/ Insulin Human Regular 15 unit/ Total Parenteral Nutrition/Amino Acids/Dextrose/ Fat Emulsion Intravenous 1,920 ml @ 80 mls/hr TPN CONT IV Last administered on 08/28/19at 21:42; Start 08/28/19 at 22:00; Stop 08/29/19 at 21:59; Status DC Potassium Chloride 80 meq/ Magnesium Sulfate 20 meq/ Multivitamins 10 ml/Chromium/ Copper/Manganese/ Seleni/Zn 0.5 ml/ Insulin Human Regular 15 unit/ Total Parenteral Nutrition/Amino Acids/Dextrose/ Fat Emulsion Intravenous 1,920 ml @ 80 mls/hr TPN CONT IV Last administered on 08/29/19at 22:20; Start 08/29/19 at 22:00; Stop 08/30/19 at 21:59; Status DC Lidocaine HCl (Buffered Lidocaine 1%) 3 ml STK-MED ONCE .ROUTE ; Start 08/30/19 at 09:54; Stop 08/30/19 at 09:55; Status DC Hydromorphone HCl (Dilaudid Standard M[employer] WET PROCESS) 12 mg STK-MED ONCE IV ; Start 08/19/19 at 15:50; Stop 08/30/19 at 11:24; Status DC Potassium Chloride 80 meq/ Magnesium Sulfate 20 meq/ Multivitamins 10 ml/Chromium/ Copper/Manganese/ Seleni/Zn 0.5 ml/ Insulin Human Regular 15 unit/ Total Parenteral Nutrition/Amino Acids/Dextrose/ Fat Emulsion Intravenous 1,920 ml @ 80 mls/hr TPN CONT IV Last administered on 08/30/19at 21:40; Start 08/30/19 at 22:00; Stop 08/31/19 at 21:59; Status DC Lidocaine HCl (Buffered Lidocaine 1%) 6 ml 1X ONCE INJ Last administered on 08/30/19at 14:15; Start 08/30/19 at 14:15; Stop 08/30/19 at 14:16; Status DC Potassium Chloride 80 meq/ Magnesium Sulfate 20 meq/ Multivitamins 10 ml/Chromium/ Copper/Manganese/ Seleni/Zn 1 ml/ Insulin Human Regular 15 unit/ Total Parenteral Nutrition/Amino Acids/Dextrose/ Fat Emulsion Intravenous 1,920 ml @ 80 mls/hr TPN CONT IV Last administered on 08/31/19at 22:04; Start 08/31/19 at 22:00; Stop 09/01/19 at 21:59; Status DC Potassium Chloride/Water 100 ml @ 100 mls/hr 1X ONCE IV Last administered on 09/01/19at 11:34; Start 09/01/19 at 11:00; Stop 09/01/19 at 11:59; Status DC Potassium Chloride 90 meq/ Magnesium Sulfate 20 meq/ Multivitamins 10 ml/Chromium/ Copper/Manganese/ Seleni/Zn 1 ml/ Insulin Human Regular 15 unit/ Total Parenteral Nutrition/Amino Acids/Dextrose/ Fat Emulsion Intravenous 1,920 ml @ 80 mls/hr TPN CONT IV Last administered on 09/01/19at 22:57; Start 09/01/19 at 22:00; Stop 09/02/19 at 21:59; Status DC Potassium Chloride 90 meq/ Magnesium Sulfate 20 meq/ Multivitamins 10 ml/C hromium/ Copper/Manganese/ Seleni/Zn 1 ml/ Insulin Human Regular 15 unit/ Total Parenteral Nutrition/Amino Acids/Dextrose/ Fat Emulsion Intravenous 1,920 ml @ 80 mls/hr TPN CONT IV Last administered on 09/02/19at 22:48; Start 09/02/19 at 22:00; Stop 09/03/19 at 21:59 Active Scripts Active Reported Bisoprolol Fumarate 5 Mg Tablet 10 Mg PO DAILY Vitals/I & O Vital Sign - Last 24 Hours 09/02/19 09/02/19 09/02/19 09/02/19 09:36 10:00 10:10 11:00 Pulse 100 128 Resp 32 14 20 30 B/P (MAP) 97/62 (74) 164/81 (108) Pulse Ox 100 100 O2 Delivery Tracheal Collar Tracheal Collar Tracheal Collar 09/02/19 09/02/19 09/02/19 09/02/19 12:00 12:00 13:00 14:00 Temp 97.5 97.5 Pulse 130 136 110 Resp 32 33 22 B/P (MAP) 138/85 (102) 165/74 (104) 123/69 (87) Pulse Ox 100 99 100 O2 Delivery Nasal Cannula Tracheal Collar Tracheal Collar Tracheal Collar O2 Flow Rate 5.0 09/02/19 09/02/19 09/02/19 09/02/19 15:00 15:12 15:44 16:00 Pulse 110 Resp 26 26 20 B/P (MAP) 184/87 (119) Pulse Ox 100 100 O2 Delivery Tracheal Collar Tracheal Collar Nasal Cannula Nasal Cannula O2 Flow Rate 5.0 09/02/19 09/02/19 09/02/19 09/02/19 16:00 17:00 18:00 19:00 Temp 98.5 98.5 Pulse 120 116 113 110 Resp 20 20 24 23 B/P (MAP) 146/82 (103) 126/74 (91) 140/82 (101) 147/78 (101) Pulse Ox 100 98 99 99 O2 Delivery Nasal Cannula Nasal Cannula Nasal Cannula Nasal Cannula O2 Flow Rate 3.0 09/02/19 09/02/19 09/02/19 09/02/19 20:00 20:00 21:00 21:04 Temp 97.5 97.5 Pulse 102 102 Resp 19 24 29 B/P (MAP) 118/63 (81) 161/100 (120) Pulse Ox 100 100 100 O2 Delivery Nasal Cannula Nasal Cannula Nasal Cannula Nasal Cannula O2 Flow Rate 3.0 3.0 3.0 3.0 09/02/19 09/02/19 09/02/19 09/03/19 21:34 22:00 23:00 00:00 Pulse 90 82 Resp 22 16 15 B/P (MAP) 101/61 (74) 93/52 (66) Pulse Ox 100 100 100 O2 Delivery Nasal Cannula Nasal Cannula Nasal Cannula Nasal Cannula O2 Flow Rate 3.0 3.0 3.0 3.0 09/03/19 09/03/19 09/03/19 09/03/19 00:00 01:00 02:00 03:00 Temp 98.0 98.0 Pulse 88 94 86 78 Resp 26 17 15 15 B/P (MAP) 140/81 (100) 152/84 (106) 91/49 (63) Pulse Ox 100 100 100 100 O2 Delivery Nasal Cannula Nasal Cannula Nasal Cannula Nasal Cannula O2 Flow Rate 3.0 3.0 3.0 3.0 09/03/19 09/03/19 09/03/19 09/03/19 04:00 04:00 04:41 05:00 Temp 98.3 98.3 Pulse 102 Resp 30 30 B/P (MAP) 148/89 (108) Pulse Ox 100 100 O2 Delivery Nasal Cannula Nasal Cannula Nasal Cannula Nasal Cannula O2 Flow Rate 3.0 3.0 3.0 2.0 09/03/19 09/03/19 09/03/19 09/03/19 05:00 05:11 06:00 07:00 Pulse 108 85 77 Resp 16 16 14 16 B/P (MAP) 92/51 (65) 81/44 (56) 77/46 (56) Pulse Ox 100 100 99 99 O2 Delivery Nasal Cannula Nasal Cannula Nasal Cannula Nasal Cannula O2 Flow Rate 2.0 2.0 2.0 2.0 09/03/19 09/03/19 08:00 08:00 Pulse 97 Resp 18 B/P (MAP) 116/58 (77) Pulse Ox 99 O2 Delivery Nasal Cannula Nasal Cannula O2 Flow Rate 2.0 2.0 Intake and Output 09/02/19 09/02/19 09/03/19 15:00 23:00 07:00 Intake Total 606 ml 646 ml Output Total 2260 ml 1690 ml 655 ml Balance -2260 ml -1084 ml -9 ml Hemodynamically unstable?: No Is patient in severe pain?: No Is NPO status required?: Yes JOVANY HARRISON MD September 03, 2019 09:05
[2019-09-03] MEDS: TPN PER PHARMACY MC PRN (10:03)
--- NOTE | 2019-09-03 10:03 | NUR ---
Pharmacy TPN Dosing Note S: SCOTT AVILA is a 48 year old F Currently receiving Central Continuous TPN started 07/06/19 B:Pertinent PMH: Necrotizing pancreatitis Current diet: NPO LABS: Sodium: 143 Potassium: 4.1 Chloride: 103 Calcium: 8.5 Corrected Calcium: 10.26 Magnesium: 1.9 CO2: 38 SCr: 0.6 Glucose: 119-208 Albumin: 1.8 AST: 50 ALT: 50 TPN FORMULA: TPN TYPE: Central Continuous AMINO ACIDS: 90 gm DEXTROSE: 250 gm LIPIDS: 30 gm SODIUM CHLORIDE: - mEq SODIUM ACETATE: - mEq SODIUM PHOSPHATE: - mmol POTASSIUM CHLORIDE: 90 mEq POTASSIUM ACETATE: - mEq POTASSIUM PHOSPHATE: - mmol MAGNESIUM: 20 mEq CALCIUM: - mEq INSULIN: 15 units MULTIPLE VITAMIN: 10 ml TRACE ELEMENTS: 0.5 ml(s) TPN PLAN: 09/02 CONT SAME TPN R: Continue TPN Will monitor electrolytes, glucose, and tolerance to TPN. LAURA LEO [facility], 09/03/19 100
[2019-09-03] MEDS: MICAFUNGIN 100 MG in IV DEXTROSE 5% 100ML 100 ML IV SCH (10:29)
--- NOTE | 2019-09-03 12:21 | PDOC ---
[employer] PROGRESS NOTE Chief Complaint Chief Complaint Acute hypoxic Respiratory failure requiring mechanical ventilation (now extubated for several days but still with tracheostomy) Tracheostomy bilateral pleural effusions/pulm edema Sepsis Severe Acute gallstone pancreatitis (not a surgical candidate at this time) with necrosis Acute kidney failure now requiring dialysis Salpingitis Gallstones (Calculus of gallbladder with acute cholecystitis without obstruc tion) HTN Leukocytosis Hypoxia Uterine fibroid Intractable pain Intractable nausea Covid 19 negative. Acute on chronic anemia EEG: No seizure activityFever - better currently - intermittent could be from underlying pancreatitis blood cults 08/21 - neg so far ? Ileus with vomiting Abd distention - U/S and CT reviewed s/p 0.4 L of opaque, debris-containing ascites was removed 08/23 Acute pancreatitis with persistent necrosis - 08/14 status post KAYLIN drain placement + C paropsilosis. s/p additional drains 08/25 Anemia - S/p PRBCs Cholelithiasis with thickening of the gallbladder wall. Leucocytosis improving JUANA, hyperkalemia, Metabolic acidosis off dialysis Acute hypoxic resp failure ,bilateral pleural effusion and atelectasis hypocalcemia Prediabetes HTN s/p trach ESRD on HD Hyperglycemia History of Present Illness History of Present Illness 09/03/2019 Patient seen and examined in the ICU She is up in the bed but extremely weak and frail Ask if there is "anything we can do" I explained to her that we will do everything we can but that she is very ill and we need to give it time Reviewed with nurse Reviewed chart She is on IV micafungin September and meropenem She is on IV TPN She is also receiving Precedex for sedation She has NG to suction and KAYLIN drain x5 Lind to bedside drainage Extremely critically ill 09/02/2019 Patient seen and examined in the ICU She is resting comfortably but sedated Has O2 per nasal cannula Tracheostomy is clean She is on Precedex TPN and has an NG to suction Chart reviewed 09/01/2019 Patient seen and examined in the ICU She now has a speaking valve in her trach and is able to talk She is extremely weak and shaky Chart reviewed discussed with RN 08/31/2019 Patient seen and examined in the ICU She is up in the chair with O2 via trach shield Extremely anxious Cannot talk but is trying to write things to me although I cannot understand what she is writing Discussed with RN Chart reviewed Still on IV TPN Still extremely ill 08/30/2019 Patient seen and examined in the ICU She now has a trach shield Pleasantly confused but sedated with Precedex Chart reviewed Discussed with RN She has IV TPN Still very critically ill 08/29/2019 Patient seen and examined She remains on the vent but spontaneous respirations with 20 of pressure support and 30% FiO2 He still has NG to suction Appears extremely ill and weak and confused Has IV TPN Precedex antibiotics Lind is to bedside drainage She has SCDs and ProCare boots She is on IV meropenem and daptomycin and micafungin Chart reviewed Discussed with RN Patient is still critically ill Ms Diaz is a 48yo F w/ PMHx HTN, prediabetes who presented to the emergency room with complaints of abdominal pain on 07/04/2019. Found with Lipase 87931, AST 401, ALT 249, Bilirubin 1.4. CT abdomen confirms pancreatic inflammation, peripancreatic fluid and inflammatory changes around the pancreas consistent with pancreatitis. Cholelithiasis and 1.4cm uterine fibroid as well as possible left salpingitis. Admitted for further care GI, General surgery, ID, Pulm consulted. 07/04: PICC placed per IR. Renal US negative. Started on levophed. Repeat CT abdomen w/ necrosis; 07/05: Dialysis catheter per nephrology; 07/06: On BiPAP; 07/07: BiPAP, dialysis; 07/08: Overnight Tmax 101.7 , still on BiPAP FiO2 40%, still on low dose Levophed gtt, TPN initiated. On dialysis 07/24: Tracheostomy; 07/30: S/p tracheostomy on vent spontaneous respirations with 5 of pressure support 35% FiO2, rectal tube and a Lind, off pressors; 08/01:Still on vent via trach. Removed PICC and CVC LIJ and replaced. CT chest/abd/pelvis with bilateral pleural effusion and ascites. 08/02: Renal function stable. Still on vent. More interactive today. Miming wish for food. Plan discussed for thoracentesis/paracentesis with daughters today. They were under impression patient was doing worse due to a miscommunication which has been clarified over the phone. 4.3L removed. 08/04: Febrile overnight 101.8F. More interactive, still on vent. Asking for ice by miming; 08/05: Afebrile overnight. TMax last 24 hours 100.6F. Hb 7.1. Interactive when awake. 08/09: Transfusion 1u PRBC (6U total since admit) 08/10-08/13: TPN and precedex, vent. 08/14: Tmax 101F overnight. Hb 8.2. HD cath out since 08/11. Alert. On vent SIMV 35% FiO2. Surgery: ex-lap, no ronel or pancreatic necrosectomy 2/2 profound inflammation. 08/15: Seen POD #1. Afebrile overnight. BUN 62. CBC WNL today.Remains on vent via trach, TPN. Able to point today and indicate she wishes her daughters and Jamaal to be involved in her care. 08/16: Hb 7.4, Na 151. Remains on vent via trach, TPN. off HD for now. Not tolerating trach shield well. 08/17: Negative US for UE DVT. More relaxed today. Has some increase in UOP. Tolerating vent well. She is requesting to eat and drink via writing. T max 100F 24 hours ago, but 101F at 1200. Right PICC placed. Speaking valve for half the day in [facility] 08/18: Na 153 today. Good UOP. Tmax 101F at 1200 on 08/17. She becomes a bit anxious and did not sleep much last night, wishes to try to sleep this morning 08/19: Able to speak well with speaking valve today. Na 153, K2.9, Mg 1.8, Cr 1. 100.4F axillary temp overnight. Asking for food. 08/20: Afebrile overnight. ABG with pH 7.27/75/123. Hb 7.1. Na 153. [employer] settings decreased 08/21: No acute events reported overnight, case discussed with nursing staff patient in no acute distress no complaints during my visit 08/22: Patient responding to verbal stimuli. She is saturating well and not requiring ventilation support, no acute events reported overnight seems to be slowly improving 08/23: Patient requiring transfusion of packed red blood cells due to anemia, no evidence of acute bleeding, appreciate GI senior talent management consultant recommendations 08/24: Patient required ventilatory support given that she desaturated, she is lying in bed in mild distress, case discussed with nursing staff, no evidence of bleeding, h an h noted. 08/25: Underwent IR procedure as follows BRIEF OPERATIVE NOTE Pre-Op Diagnosis Pancreatitis with pseudocysts, suspected infection Post-Op Diagnosis same Procedure Performed CT abdominal Drains x 3 Surgeon Tesfaye Anesthesia Type: Conscious Sedation Findings 3 abdominal drains, 14F, with turbid pancreatic fluid and necrotic debris in each. Complications No immediate 08/26: Patient today somewhat restless and having bilious secretions from ET tube, imaging studies ordered, discussed with senior talent management consultant. Pretty poor prognosis, hopefully is not a fistula, poor surgical candidate. 08/27: Imaging with no acute events, she seems more stable today compared to yesterday. Encouraged as much activity as possible patient at high risk for severe depression. Vitals/I&O Vitals/I&O: Vital Signs Date Time Temp Pulse Resp B/P (MAP) Pulse Ox O2 Delivery O2 Flow Rate FiO2 09/03/19 11:09 99 Nasal Cannula 2.0 09/03/19 11:00 94 24 166/86 (112) 09/03/19 09:00 97.7 97.7 I & O 09/02/19 09/02/19 09/03/19 15:00 23:00 07:00 Intake Total 606 ml 646 ml Output Total 2260 ml 1690 ml 655 ml Balance -2260 ml -1084 ml -9 ml Physical Exam Physical Exam: GENERAL: Alert but extremely frail and wheezing at the bedside HEENT: oral cavity dry, NGT NECK: Trach/vent - capped LUNGS: Diffuse wheezing which can be heard even at the bedside HEART: S1, S2, regular ABDOMEN: Less Distended, hypoactive BS, tender, + drains x 3 : Lind (08/01) EXTREMITIES: Generalized edema, no cyanosis, SCDs bilaterally SKIN: Warm and dry. No generalized rash. LOSS PREVENTION SPECIALIST: Alert and answering questions PICC(08/17) clean General: No acute distress Heart: Regular rate, Normal S1, Normal S2, No murmurs, Gallops Lungs: Wheezing, Other (decrease bs) Abdomen: Soft, No tenderness, Other (drains in place) Extremities: No clubbing, No cyanosis, No edema, Normal pulses, No tenderness/swelling Skin: Other (warm, dry) Labs Labs: Laboratory Tests Test 09/02/19 17:59 09/03/19 01:15 09/03/19 05:45 09/03/19 05:54 Glucose (Fingerstick) 130 mg/dL (70-99) 153 mg/dL (70-99) 119 mg/dL (70-99) White Blood Count 11.3 x10^3/uL (4.0-11.0) Red Blood Count 2.65 x10^6/uL (3.50-5.40) Hemoglobin 7.5 g/dL (12.0-15.5) Hematocrit 23.6 % (36.0-47.0) Mean Corpuscular Volume 89 fL (79-100) Mean Corpuscular Hemoglobin 28 pg (25-35) Mean Corpuscular Hemoglobin Concent 32 g/dL (31-37) Red Cell Distribution Width 18.1 % (11.5-14.5) Platelet Count 524 x10^3/uL (140-400) Neutrophils (%) (Auto) 84 % (31-73) Lymphocytes (%) (Auto) 9 % (24-48) Monocytes (%) (Auto) 5 % (0-9) Eosinophils (%) (Auto) 1 % (0-3) Basophils (%) (Auto) 0 % (0-3) Neutrophils # (Auto) 9.5 x10^3/uL (1.8-7.7) Lymphocytes # (Auto) 1.0 x10^3/uL (1.0-4.8) Monocytes # (Auto) 0.6 x10^3/uL (0.0-1.1) Eosinophils # (Auto) 0.1 x10^3/uL (0.0-0.7) Basophils # (Auto) 0.0 x10^3/uL (0.0-0.2) Test 09/03/19 11:11 Glucose (Fingerstick) 162 mg/dL (70-99) Review of Systems Review of Systems: Complains of anxiety complains of weakness Assessment and Plan Assessmemt and Plan Problems Medical Problems: (1) Acute pancreatitis Status: Acute (2) Cholelithiasis Status: Acute Acute hypoxic Respiratory failure requiring mechanical ventilation (on vent since 07/10) Tracheostomy bilateral pleural effusions/pulm edema Sepsis Severe Acute gallstone pancreatitis (not a surgical candidate at this time) with necrosis Acute kidney failure now requiring dialysis Salpingitis Gallstones (Calculus of gallbladder with acute cholecystitis without obstruction) HTN Leukocytosis Hypoxia Uterine fibroid Intractable pain Intractable nausea Covid 19 negative. Acute on chronic anemia EEG: No seizure activityFever - better currently - intermittent could be from underlying pancreatitis blood cults 08/21 - neg so far ? Ileus with vomiting Abd distention - U/S and CT reviewed s/p 0.4 L of opaque, debris-containing ascites was removed 08/23 Acute pancreatitis with persistent necrosis - 08/14 status post KAYLIN drain placement + C paropsilosis. s/p additional drains 08/25 Anemia - S/p PRBCs Cholelithiasis with thickening of the gallbladder wall. Leucocytosis improving JUANA, hyperkalemia, Metabolic acidosis off dialysis Acute hypoxic resp failure ,bilateral pleural effusion and atelectasis hypocalcemia Prediabetes HTN s/p trach ESRD on HD Hyperglycemia Plan ICU monitoring Wound care Humidified O2 via nasal cannula for now but we can use trach shield as backup NG suctioning Nebulizers Continue IV antibiotics and micafungin Sedation with Precedex TPN protocol Continue Lind to bedside drainage Tracheostomy care Hope to eventually move towards decannulation (we have a speaking valve for now) Trend labs Appreciate subspecialist input She is critically ill Total time 34-minute Comment Review of Relevant I have reviewed the following items kolby (where applicable) has been applied. Medications: Current Medications Medications (Trade) Dose Ordered Sig/Yvon Route PRN Reason Start Time Stop Time Status Last Admin Dose Admin Potassium Chloride 90 meq/ Magnesium Sulfate 20 meq/ Multivitamins 10 ml/Chromium/ Copper/Manganese/ Seleni/Zn 1 ml/ Insulin Human Regular 15 unit/ Total Parenteral Nutrition/Amino Acids/Dextrose/ Fat Emulsion Intravenous 1,920 ml @ 80 mls/hr TPN CONT IV 09/02/19 22:00 09/03/19 21:59 09/02/19 22:48 Hemodynamically unstable?: No Is patient in severe pain?: No Is NPO status required?: Yes BEBO KIRBY III DO September 03, 2019 12:21
[2019-09-03] MEDS: IV NORMAL SALINE 1000ML BAG 1,000 ML IV SCH (14:34)
--- NOTE | 2019-09-03 20:00 | NUR ---
Found patient with original KAYLIN drain out in the bed. Site cleaned with alcohol and covered with a 4x4 and Mefix tape. All other drains intact and suction working.
[2019-09-03] MEDS ORDERED: DEXTROSE 70% IV SCH ×8 (22:00)
[2019-09-03] MEDS ORDERED: AMINO ACID IV SCH ×8 (22:00)
[2019-09-03] MEDS ORDERED: TOTAL PARENTERAL NUTRITION IV SCH ×8 (22:00)
[2019-09-03] MEDS ORDERED: [UNRECOGNIZED DRUG - OTHER] IV SCH ×8 (22:00)
[2019-09-04] VITALS (24 sets, daily range): BP systolic 90–204; BP diastolic 49–94
[2019-09-04] MEDS: DEXMEDETOMIDINE 400 MCG in IV NORMAL SALINE 100ML 96 ML IV PRN ×6 (00:43→23:50)
[2019-09-04] MEDS: INSULIN LISPRO 300 UNITS/3 ML VIAL. SQ SCH ×5 (00:47→23:50)
[2019-09-04] MEDS: HYDROmorphone 2 MG/ML VIAL IVP PRN ×4 (02:11→23:43)
--- NOTE | 2019-09-04 06:00 | PDOC ---
PULMONARY PROGRESS NOTES Subjective Patient intubated on 07/10 , s/p trach 4/6, awake alert follows commands, is weak, small trach secretion, trach has been capped over 48 hrs placed on cap trach s/p left tap 08/29 , 3 litres removed Vitals Vital Signs Date Time Temp Pulse Resp B/P (MAP) Pulse Ox O2 Delivery O2 Flow Rate FiO2 09/04/19 04:00 Nasal Cannula 2.0 09/04/19 04:00 98.1 104 23 121/67 (85) 100 98.1 ROS: No Chest Pain, No Abdominal Pain, No Increase Cough General: Alert, No acute distress HEENT: Other (nc at perrl neck trach site ok no lad no thyromegaly) Lungs: Wheezing, Other (decrease bs) Cardiovascular: S1, S2 Abdomen: Soft, Non-tender, Other (distended) Neuro Exam: Alert Extremities: Other (+3 generalized edema ) Skin: Warm, Dry Labs Laboratory Tests Test 09/02/19 06:40 09/02/19 06:43 09/02/19 12:11 09/02/19 17:59 White Blood Count 9.0 x10^3/uL (4.0-11.0) Red Blood Count 2.56 x10^6/uL (3.50-5.40) Hemoglobin 7.2 g/dL (12.0-15.5) Hematocrit 22.8 % (36.0-47.0) Mean Corpuscular Volume 89 fL (79-100) Mean Corpuscular Hemoglobin 28 pg (25-35) Mean Corpuscular Hemoglobin Concent 32 g/dL (31-37) Red Cell Distribution Width 17.9 % (11.5-14.5) Platelet Count 489 x10^3/uL (140-400) Neutrophils (%) (Auto) 79 % (31-73) Lymphocytes (%) (Auto) 13 % (24-48) Monocytes (%) (Auto) 6 % (0-9) Eosinophils (%) (Auto) 2 % (0-3) Basophils (%) (Auto) 0 % (0-3) Neutrophils # (Auto) 7.1 x10^3/uL (1.8-7.7) Lymphocytes # (Auto) 1.2 x10^3/uL (1.0-4.8) Monocytes # (Auto) 0.5 x10^3/uL (0.0-1.1) Eosinophils # (Auto) 0.2 x10^3/uL (0.0-0.7) Basophils # (Auto) 0.0 x10^3/uL (0.0-0.2) Sodium Level 143 mmol/L (136-145) Potassium Level 4.1 mmol/L (3.5-5.1) Chloride Level 103 mmol/L (98-107) Carbon Dioxide Level 38 mmol/L (21-32) Anion Gap 2 (6-14) Blood Urea Nitrogen 25 mg/dL (7-20) Creatinine 0.6 mg/dL (0.6-1.0) Estimated GFR (Cockcroft-Gault) 106.3 Glucose Level 115 mg/dL (70-99) Calcium Level 8.5 mg/dL (8.5-10.1) Glucose (Fingerstick) 110 mg/dL (70-99) 208 mg/dL (70-99) 130 mg/dL (70-99) Test 09/03/19 01:15 09/03/19 05:45 09/03/19 05:54 09/03/19 11:11 Glucose (Fingerstick) 153 mg/dL (70-99) 119 mg/dL (70-99) 162 mg/dL (70-99) White Blood Count 11.3 x10^3/uL (4.0-11.0) Red Blood Count 2.65 x10^6/uL (3.50-5.40) Hemoglobin 7.5 g/dL (12.0-15.5) Hematocrit 23.6 % (36.0-47.0) Mean Corpuscular Volume 89 fL (79-100) Mean Corpuscular Hemoglobin 28 pg (25-35) Mean Corpuscular Hemoglobin Concent 32 g/dL (31-37) Red Cell Distribution Width 18.1 % (11.5-14.5) Platelet Count 524 x10^3/uL (140-400) Neutrophils (%) (Auto) 84 % (31-73) Lymphocytes (%) (Auto) 9 % (24-48) Monocytes (%) (Auto) 5 % (0-9) Eosinophils (%) (Auto) 1 % (0-3) Basophils (%) (Auto) 0 % (0-3) Neutrophils # (Auto) 9.5 x10^3/uL (1.8-7.7) Lymphocytes # (Auto) 1.0 x10^3/uL (1.0-4.8) Monocytes # (Auto) 0.6 x10^3/uL (0.0-1.1) Eosinophils # (Auto) 0.1 x10^3/uL (0.0-0.7) Basophils # (Auto) 0.0 x10^3/uL (0.0-0.2) Test 09/03/19 17:46 09/04/19 00:41 Glucose (Fingerstick) 144 mg/dL (70-99) 177 mg/dL (70-99) Laboratory Tests Test 09/03/19 11:11 09/03/19 17:46 09/04/19 00:41 Glucose (Fingerstick) 162 mg/dL (70-99) 144 mg/dL (70-99) 177 mg/dL (70-99) Medications Active Scripts Medications Dose Route/Sig Max Daily Dose Days Date Category Bisoprolol Fumarate 5 Mg Tablet 10 Mg PO DAILY 07/04/19 Reported Comments CXR reviewed. Impression . IMPRESSION: 1. Acute hypoxemic respiratory failure secondary to ARDS status post trach, 2. Gallstone pancreatitis 3. Severe metabolic acidosis.stable 4. Acute kidney injury-stable, Off HD-- continue to improve 5. Acute gallstone pancreatitis. 6. Hypoalbuminemia. 7. Moderate persistent effusions, s/p left thora 08/29 8. Fever- Per ID, per surgery--resolved 9. Chronic anemia 10. Covid 19 testing negative 11. Moderate to large ascites-S/P paracentisis 12.S/P paracentisis with 4 liters removed on 08/03/19 13. S/P IR drain placement on 08/26/2019 Plan . s/p thoracentesis, 08/29, 3 litres removed cap trach as tolerated Follow surgery recs-- S/P 3 drain placed in IR on 08/26/2019 Follow ID recs for ABX Follow nephrology recs Continue TPN DVT/GI PPX: heparin SQ/ protonix D/W RN and RT, pt CODE:FULL TEN WHITFIELD MD September 04, 2019 06:00
[2019-09-04] MEDS: MEROPENEM 1 GM in IV NORMAL SALINE 100ML 100 ML IV SCH ×3 (06:47→21:28)
[2019-09-04 07:21] LABS: BASO % 0 % (0-3); EOS # 0.2 x10^3/uL (0.0-0.7); EOS % 1 % (0-3); HEMATOCRIT 25.6 % (36.0-47.0); HEMOGLOBIN 8.3 g/dL (12.0-15.5); LYMPH # 3.5 x10^3/uL (1.0-4.8); LYMPH % 25 % (24-48); MEAN CORPUSCULAR HEMOGLOBIN 29 pg (25-35); MEAN CORPUSCULAR HGB CONC 32 g/dL (31-37); MEAN CORPUSCULAR VOLUME 89 fL (79-100); MONO # 0.9 x10^3/uL (0.0-1.1); MONO % 6 % (0-9); NEUT # 9.6 x10^3/uL (1.8-7.7); NEUT % 68 % (31-73); PLATELET COUNT 497 x10^3/uL (140-400); RED BLOOD COUNT 2.87 x10^6/uL (3.50-5.40); RED CELL DISTRIBUTION WIDTH 18.1 % (11.5-14.5); WHITE BLOOD COUNT 14.2 x10^3/uL (4.0-11.0)
[2019-09-04 07:35] LABS: ALBUMIN 2.2 g/dL (3.4-5.0); ALBUMIN/GLOBULIN RATIO 0.5 (1.0-1.7); CALCIUM 9.2 mg/dL (8.5-10.1); CREATININE 0.5 mg/dL (0.6-1.0); GFR 131.1; POTASSIUM 4.5 mmol/L (3.5-5.1); TOTAL BILIRUBIN 0.4 mg/dL (0.2-1.0); TOTAL PROTEIN 6.7 g/dL (6.4-8.2)
--- NOTE | 2019-09-04 08:00 | PDOC ---
Infectious Disease Note Subjective Subjective feeling better says occ nausea and min pain Still distended but less off vent, trach o2 ROS ROS o/w neg Vital Sign Vital Signs Vital Signs Date Time Temp Pulse Resp B/P (MAP) Pulse Ox O2 Delivery O2 Flow Rate FiO2 09/04/19 04:00 Nasal Cannula 2.0 09/04/19 04:00 98.1 104 23 121/67 (85) 100 98.1 Physical Exam PHYSICAL EXAM GENERAL: Alert - coop HEENT: oral cavity dry, NGT NECK: Trach/vent - capped LUNGS: CTA HEART: S1, S2, regular ABDOMEN: mod Distended, hypoactive BS, tender, + drains x 3 : Lind (08/01) EXTREMITIES: Generalized edema, no cyanosis, SCDs bilaterally SKIN: Warm and dry. No generalized rash. CHIEF WHEELAGE CLERK: Alert and answering questions PICC(08/17) clean Labs Lab Laboratory Tests Test 09/03/19 11:11 09/03/19 17:46 09/04/19 00:41 09/04/19 07:00 Glucose (Fingerstick) 162 mg/dL (70-99) 144 mg/dL (70-99) 177 mg/dL (70-99) White Blood Count 14.2 x10^3/uL (4.0-11.0) Red Blood Count 2.87 x10^6/uL (3.50-5.40) Hemoglobin 8.3 g/dL (12.0-15.5) Hematocrit 25.6 % (36.0-47.0) Mean Corpuscular Volume 89 fL (79-100) Mean Corpuscular Hemoglobin 29 pg (25-35) Mean Corpuscular Hemoglobin Concent 32 g/dL (31-37) Red Cell Distribution Width 18.1 % (11.5-14.5) Platelet Count 497 x10^3/uL (140-400) Neutrophils (%) (Auto) 68 % (31-73) Lymphocytes (%) (Auto) 25 % (24-48) Monocytes (%) (Auto) 6 % (0-9) Eosinophils (%) (Auto) 1 % (0-3) Basophils (%) (Auto) 0 % (0-3) Neutrophils # (Auto) 9.6 x10^3/uL (1.8-7.7) Lymphocytes # (Auto) 3.5 x10^3/uL (1.0-4.8) Monocytes # (Auto) 0.9 x10^3/uL (0.0-1.1) Eosinophils # (Auto) 0.2 x10^3/uL (0.0-0.7) Basophils # (Auto) 0.0 x10^3/uL (0.0-0.2) Sodium Level 140 mmol/L (136-145) Potassium Level 4.5 mmol/L (3.5-5.1) Chloride Level 99 mmol/L (98-107) Carbon Dioxide Level 40 mmol/L (21-32) Anion Gap 1 (6-14) Blood Urea Nitrogen 26 mg/dL (7-20) Creatinine 0.5 mg/dL (0.6-1.0) Estimated GFR (Cockcroft-Gault) 131.1 BUN/Creatinine Ratio 52 (6-20) Glucose Level 127 mg/dL (70-99) Calcium Level 9.2 mg/dL (8.5-10.1) Total Bilirubin 0.4 mg/dL (0.2-1.0) Aspartate Amino Transf (AST/SGOT) 29 U/L (15-37) Alanine Aminotransferase (ALT/SGPT) 27 U/L (14-59) Alkaline Phosphatase 109 U/L (46-116) Total Protein 6.7 g/dL (6.4-8.2) Albumin 2.2 g/dL (3.4-5.0) Albumin/Globulin Ratio 0.5 (1.0-1.7) Micro U/S 08/21 IMPRESSION: Complex fluid collections within the right and lower quadrants. The abdominal visceral and vascular structures are not formally assessed on this exam. CT Scan 08/21 IMPRESSION: 1. Findings consistent with sequelae of severe acute pancreatitis with enlarging peripancreatic and intra-abdominal fluid collections as described 2. Interval placement of a drain in the ventral abdominal wall with and partial evacuation of the ventral extraperitoneal fluid collection previously evident. 08/14 Operative Note: After obtaining informed consent, patient was taken to OR, induced under GETA and prepped in the usual fashion. 5 mm port placed umbilical and right mid abdomen, all under laparoscopic guidance. Large amount of ascites encountered and aspirated off. Fluid was clear with some whitish debris. Viscera was completely locked in with obliteration of all planes, preventing any significant exploration. Copious irrigation. Given patient's overall clinical improvement, favor against open procedure and attempt at cholecystectomy and/or necrosectomy, given high risk of c omplications. Cholecystectomy will need to be performed, but favor waiting 3 months. 19 KAYLIN drain placed and secured with 3 0 nylon. Skin repaired with 4 0 monocryl. Dressing placed. Patient tolerated procedure well and sent to PACU in stable condition. All counts correct. Wound class is 4. CT Chest Abd/pelv 08/01 CT CHEST: CT scan the chest was done without contrast. There is a tracheostomy tube in good position. There are large bilateral pleural effusions. There is atelectasis in both lung bases. There is no mediastinal adenopathy. Right arm PICC line extends to the superior vena cava. There is a temporary dialysis catheter extending to the vena cava near the atrium. IMPRESSION: 1. Large bilateral effusions. 2. Atelectasis of both lungs. End impression CT abdomen pelvis CT scan the abdomen pelvis was done following CT chest with contrast. NG tube extends into the stomach. Spleen is normal. There is no mass or hydronephrosis in the kidneys. There is a gallstone the gallbladder. A focal liver lesion is not identified. There is diffuse necrosis of the pancreas. There is peripancreatic fluid. The pattern is similar to the recent study. There is fluid in the paracolic gutters. There is retroperitoneal fluid surrounding the kidneys. Ascites extends into the pelvis. Ascites is similar to the prior study. There is no bowel obstruction. There is no free air. IMPRESSION: 1. Diffuse pancreatic necrosis. 2. A extensive retroperitoneal fluid and inflammation. 3. Cholelithiasis. 4. Moderate to large volume ascites with little change. CT A/P, 07/27 IMPRESSION: 1. Increased ascites. 2. 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 Cholelithiasis with thickening of the gallbladder wall. 4. Persistent pleural effusions and atelectasis in the lung bases. Objective Assessment Mild Leukocytosis but clinically looks well Fever - better currently - intermittent could be from underlying pancreatitis blood cults 08/21 - neg so far ? Ileus with vomiting Abd distention - U/S and CT reviewed s/p 0.4 L of opaque, debris-containing asc ites was removed 08/23 S/p thoracenteis 08/29 Acute pancreatitis with persistent necrosis CT a/p 07/27 Increased ascites. Persistent evidence of necrotizing pancreatitis with fluid and phlegmon at the pancreas 08/14 status post KAYLIN drain placement - C paropsilosis on cult and 08/23; Cult line tip 08/17 - neg Anemia - S/p PRBCs Cholelithiasis with thickening of the gallbladder wall. Leucocytosis improving JUANA,Hyperkalemia, Metabolic acidosis off dialysis Acute hypoxic resp failure ,bilateral pleural effusion and atelectasis hypocalcemia Prediabetes HTN s/p trach Plan Plan of Care Blood cults times 2 Add Zyvox/Dapto KUB Cont merrem 07/26 - wean soon Continue micafungin Labs in am f/u cultures Maintain aspiration precaution Supportive care D/w nursing WILLY BAARKAT MD September 04, 2019 08:00
--- NOTE | 2019-09-04 08:26 | RAD ---
Supine abdomen. HISTORY: Distention, leukocytosis Supine view was taken of the abdomen. There is an NG tube in the stomach. There is not evidence of a bowel obstruction. There are 3 drainage tubes in the abdomen 2 on the right side of the abdomen one on the left side of the pelvis. Drainage tubes are unchanged in position. There has been an improvement in the bowel distention compared to August 26. IMPRESSION: 1. Drainage tubes noted in the abdomen. 2. Improved bowel distention. No bowel obstruction 3. NG tube in the stomach. Electronically signed by: Abe Mathias MD (09/04/2019 8:23 AM) [id number]
[2019-09-04] MEDS: PANTOPRAZOLE IV PUSH 40 MG VIAL. IVP SCH (09:08)
[2019-09-04] MEDS: BUMETANIDE 1 MG/4 ML VIAL. IV SCH (09:09)
[2019-09-04] MEDS: DAPTOmycin (GENERIC) IVPB 450 MG in IV NORMAL SALINE 50ML 50 ML IV SCH (10:28)
[2019-09-04] MEDS: TPN PER PHARMACY MC PRN (10:36)
--- NOTE | 2019-09-04 10:36 | NUR ---
Pharmacy TPN Dosing Note S: SCOTT AVILA is a 48 year old F Currently receiving Central Continuous TPN started 07/06/19 B:Pertinent PMH: Necrotizing pancreatitis Current diet: NPO LABS: Sodium: 140 Potassium: 4.5 Chloride: 99 Calcium: 9.2 Corrected Calcium: 10.64 Magnesium: 1.9 CO2: 38 SCr: 0.6 Glucose: 119-177 Albumin: 2.2 AST: 50 ALT: 50 TPN FORMULA: TPN TYPE: Central Continuous AMINO ACIDS: 90 gm DEXTROSE: 250 gm LIPIDS: 30 gm SODIUM CHLORIDE: - mEq SODIUM ACETATE: - mEq SODIUM PHOSPHATE: - mmol POTASSIUM CHLORIDE: 90 mEq POTASSIUM ACETATE: - mEq POTASSIUM PHOSPHATE: - mmol MAGNESIUM: 20 mEq CALCIUM: - mEq INSULIN: 15 units MULTIPLE VITAMIN: 10 ml TRACE ELEMENTS: 1 ml(s) TPN PLAN: 09/03 CONT SAME TPN R: Continue TPN Will monitor electrolytes, glucose, and tolerance to TPN. LAURA LEO RP, 09/04/19 [id number]
[2019-09-04] MEDS: MICAFUNGIN 100 MG in IV DEXTROSE 5% 100ML 100 ML IV SCH (11:07)
--- NOTE | 2019-09-04 13:05 | PDOC ---
[employer] PROGRESS NOTE Chief Complaint Chief Complaint Acute hypoxic Respiratory failure requiring mechanical ventilation (now extubated for several days but still with tracheostomy) Tracheostomy bilateral pleural effusions/pulm edema Sepsis Severe Acute gallstone pancreatitis (not a surgical candidate at this time) with necrosis Acute kidney failure now requiring dialysis Salpingitis Gallstones (Calculus of gallbladder with acute cholecystitis without obstruc tion) HTN Leukocytosis Hypoxia Uterine fibroid Intractable pain Intractable nausea Covid 19 negative. Acute on chronic anemia EEG: No seizure activityFever - better currently - intermittent could be from underlying pancreatitis blood cults 08/21 - neg so far ? Ileus with vomiting Abd distention - U/S and CT reviewed s/p 0.4 L of opaque, debris-containing ascites was removed 08/23 Acute pancreatitis with persistent necrosis - 08/14 status post KAYLIN drain placement + C paropsilosis. s/p additional drains 08/25 Anemia - S/p PRBCs Cholelithiasis with thickening of the gallbladder wall. Leucocytosis improving JUANA, hyperkalemia, Metabolic acidosis off dialysis Acute hypoxic resp failure ,bilateral pleural effusion and atelectasis hypocalcemia Prediabetes HTN s/p trach ESRD on HD Hyperglycemia History of Present Illness History of Present Illness 09/04/2019 Patient seen and examined in the ICU She is up in bed sleeping awoke I really do not understand what she is saying to her but she is trying to talk Chart reviewed Discussed with RN She is on IV Zosyn IV micafungin and IV daptomycin Also getting TPN Sedated with Precedex She also gets Dilaudid every 4 She remains critically ill 09/03/2019 Patient seen and examined in the ICU She is up in the bed but extremely weak and frail Ask if there is "anything we can do" I explained to her that we will do everything we can but that she is very ill and we need to give it time Reviewed with nurse Reviewed chart She is on IV micafungin September and meropenem She is on IV TPN She is also receiving Precedex for sedation She has NG to suction and KAYLIN drain x5 Lind to bedside drainage Extremely critically ill 09/02/2019 Patient seen and examined in the ICU She is resting comfortably but sedated Has O2 per nasal cannula Tracheostomy is clean She is on Precedex TPN and has an NG to suction Chart reviewed 09/01/2019 Patient seen and examined in the ICU She now has a speaking valve in her trach and is able to talk She is extremely weak and shaky Chart reviewed discussed with RN 08/31/2019 Patient seen and examined in the ICU She is up in the chair with O2 via trach shield Extremely anxious Cannot talk but is trying to write things to me although I cannot understand what she is writing Discussed with RN Chart reviewed Still on IV TPN Still extremely ill 08/30/2019 Patient seen and examined in the ICU She now has a trach shield Pleasantly confused but sedated with Precedex Chart reviewed Discussed with RN She has IV TPN Still very critically ill 08/29/2019 Patient seen and examined She remains on the vent but spontaneous respirations with 20 of pressure support and 30% FiO2 He still has NG to suction Appears extremely ill and weak and confused Has IV TPN Precedex antibiotics Lind is to bedside drainage She has SCDs and ProCare boots She is on IV meropenem and daptomycin and micafungin Chart reviewed Discussed with RN Patient is still critically ill Ms Diaz is a 48yo F w/ PMHx HTN, prediabetes who presented to the emergency room with complaints of abdominal pain on 07/04/2019. Found with Lipase 25062, AST 401, ALT 249, Bilirubin 1.4. CT abdomen confirms pancreatic inflammation, peripancreatic fluid and inflammatory changes around the pancreas consistent with pancreatitis. Cholelithiasis and 1.4cm uterine fibroid as well as possible left salpingitis. Admitted for further care GI, General surgery, ID, Pulm consulted. 07/04: PICC placed per IR. Renal US negative. Started on levophed. Repeat CT abdomen w/ necrosis; 07/05: Dialysis catheter per nephrology; 07/06: On BiPAP; 07/07: BiPAP, dialysis; 07/08: Overnight Tmax 101.7 , still on BiPAP FiO2 40%, still on low dose Levophed gtt, TPN initiated. On dialysis 07/24: Tracheostomy; 07/30: S/p tracheostomy on vent spontaneous respirations with 5 of pressure support 35% FiO2, rectal tube and a Lind, off pressors; 08/01:Still on vent via trach. Removed PICC and CVC [facility] and replaced. CT ch est/abd/pelvis with bilateral pleural effusion and ascites. 08/02: Renal function stable. Still on vent. More interactive today. Miming wish for food. Plan discussed for thoracentesis/paracentesis with daughters today. They were under impression patient was doing worse due to a miscommunication which has been clarified over the phone. 4.3L removed. 08/04: Febrile overnight 101.8F. More interactive, still on vent. Asking for ice by miming; 08/05: Afebrile overnight. TMax last 24 hours 100.6F. Hb 7.1. Interactive when awake. 08/09: Transfusion 1u PRBC (6U total since admit) 08/10-08/13: TPN and precedex, vent. 08/14: Tmax 101F overnight. Hb 8.2. HD cath out since 08/11. Alert. On vent SIMV 35% FiO2. Surgery: ex-lap, no ronel or pancreatic necrosectomy 05/22 profound inf lammation. 08/15: Seen POD #1. Afebrile overnight. BUN 62. CBC WNL today.Remains on vent via trach, TPN. Able to point today and indicate she wishes her daughters and Jamaal to be involved in her care. 08/16: Hb 7.4, Na 151. Remains on vent via trach, TPN. off HD for now. Not tolerating trach shield well. 08/17: Negative US for UE DVT. More relaxed today. Has some increase in UOP. Tolerating vent well. She is requesting to eat and drink via writing. T max 100F 24 hours ago, but 101F at 1200. Right PICC placed. Speaking valve for half the day in [facility] 08/18: Na 153 today. Good UOP. Tmax 101F at 1200 on 08/17. She becomes a bit anxious and did not sleep much last night, wishes to try to sleep this morning 08/19: Able to speak well with speaking valve today. Na 153, K2.9, Mg 1.8, Cr 1. 100.4F axillary temp overnight. Asking for food. 08/20: Afebrile overnight. ABG with pH 7.27/75/123. Hb 7.1. Na 153. PUBLIC ADMINISTRATION TEACHER settings decreased 08/21: No acute events reported overnight, case discussed with nursing staff patient in no acute distress no complaints during my visit 08/22: Patient responding to verbal stimuli. She is saturating well and not requiring ventilation support, no acute events reported overnight seems to be slowly improving 08/23: Patient requiring transfusion of packed red blood cells due to anemia, no evidence of acute bleeding, appreciate GI real estate consultant recommendations 08/24: Patient required ventilatory support given that she desaturated, she is lying in bed in mild distress, case discussed with nursing staff, no evidence of bleeding, h an h noted. 08/25: Underwent IR procedure as follows BRIEF OPERATIVE NOTE Pre-Op Diagnosis Pancreatitis with pseudocysts, suspected infection Post-Op Diagnosis same Procedure Performed CT abdominal Drains x 3 Surgeon Tesfaye Anesthesia Type: Conscious Sedation Findings 3 abdominal drains, 14F, with turbid pancreatic fluid and necrotic debris in each. Complications No immediate 08/26: Patient today somewhat restless and having bilious secretions from ET tube, imaging studies ordered, discussed with real estate consultant. Pretty poor prognosis, hopefully is not a fistula, poor surgical candidate. 08/27: Imaging with no acute events, she seems more stable today compared to yesterday. Encouraged as much activity as possible patient at high risk for severe depression. Vitals/I&O Vitals/I&O: Vital Signs Date Time Temp Pulse Resp B/P (MAP) Pulse Ox O2 Delivery O2 Flow Rate FiO2 09/04/19 12:00 98.6 102 20 181/92 (121) 98 Nasal Cannula 2.0 98.6 I & O 09/03/19 09/03/19 09/04/19 15:00 23:00 07:00 Intake Total 260 ml 1579.28 ml 1475 ml Output Total 2000 ml 1025 ml 900 ml Balance -1740 ml 554.28 ml 575 ml Physical Exam Physical Exam: GENERAL: Semi-sedated difficult to understand but trying to talk HEENT: oral cavity dry, NGT NECK: Trach with speaking valve LUNGS: Expiratory wheezing but less than yesterday HEART: S1, S2, regular ABDOMEN: mod Distended, hypoactive BS, tender, + drains x 3 : Lind (08/01) EXTREMITIES: Generalized edema, no cyanosis, SCDs bilaterally SKIN: Warm and dry. No generalized rash. MANAGER FLORAL: Very weak difficult to understand PICC(08/17) clean General: moderate distress Heart: Regular rate, Normal S1, Normal S2, No murmurs, Gallops Lungs: Wheezing, Other (decrease bs) Abdomen: Soft, No tenderness, Other (drains in place) Extremities: No clubbing, No cyanosis, No edema, Normal pulses, No tenderness/swelling Skin: Other (warm, dry) Labs Labs: Laboratory Tests Test 09/03/19 17:46 09/04/19 00:41 09/04/19 07:00 09/04/19 12:00 Glucose (Fingerstick) 144 mg/dL (70-99) 177 mg/dL (70-99) 225 mg/dL (70-99) White Blood Count 14.2 x10^3/uL (4.0-11.0) Red Blood Count 2.87 x10^6/uL (3.50-5.40) Hemoglobin 8.3 g/dL (12.0-15.5) Hematocrit 25.6 % (36.0-47.0) Mean Corpuscular Volume 89 fL (79-100) Mean Corpuscular Hemoglobin 29 pg (25-35) Mean Corpuscular Hemoglobin Concent 32 g/dL (31-37) Red Cell Distribution Width 18.1 % (11.5-14.5) Platelet Count 497 x10^3/uL (140-400) Neutrophils (%) (Auto) 68 % (31-73) Lymphocytes (%) (Auto) 25 % (24-48) Monocytes (%) (Auto) 6 % (0-9) Eosinophils (%) (Auto) 1 % (0-3) Basophils (%) (Auto) 0 % (0-3) Neutrophils # (Auto) 9.6 x10^3/uL (1.8-7.7) Lymphocytes # (Auto) 3.5 x10^3/uL (1.0-4.8) Monocytes # (Auto) 0.9 x10^3/uL (0.0-1.1) Eosinophils # (Auto) 0.2 x10^3/uL (0.0-0.7) Basophils # (Auto) 0.0 x10^3/uL (0.0-0.2) Sodium Level 140 mmol/L (136-145) Potassium Level 4.5 mmol/L (3.5-5.1) Chloride Level 99 mmol/L (98-107) Carbon Dioxide Level 40 mmol/L (21-32) Anion Gap 1 (6-14) Blood Urea Nitrogen 26 mg/dL (7-20) Creatinine 0.5 mg/dL (0.6-1.0) Estimated GFR (Cockcroft-Gault) 131.1 BUN/Creatinine Ratio 52 (6-20) Glucose Level 127 mg/dL (70-99) Calcium Level 9.2 mg/dL (8.5-10.1) Total Bilirubin 0.4 mg/dL (0.2-1.0) Aspartate Amino Transf (AST/SGOT) 29 U/L (15-37) Alanine Aminotransferase (ALT/SGPT) 27 U/L (14-59) Alkaline Phosphatase 109 U/L (46-116) Total Protein 6.7 g/dL (6.4-8.2) Albumin 2.2 g/dL (3.4-5.0) Albumin/Globulin Ratio 0.5 (1.0-1.7) Review of Systems Review of Systems: Complains of weakness complains of pain Assessment and Plan Assessmemt and Plan Problems Medical Problems: (1) Acute pancreatitis Status: Acute (2) Cholelithiasis Status: Acute Acute hypoxic Respiratory failure requiring mechanical ventilation (on vent since 07/10) Tracheostomy bilateral pleural effusions/pulm edema Sepsis Severe Acute gallstone pancreatitis (not a surgical candidate at this time) with necrosis Acute kidney failure now requiring dialysis Salpingitis Gallstones (Calculus of gallbladder with acute cholecystitis without obstruction) HTN Leukocytosis Hypoxia Uterine fibroid Intractable pain Intractable nausea Covid 19 negative. Acute on chronic anemia EEG: No seizure activityFever - better currently - intermittent could be from underlying pancreatitis blood cults 08/21 - neg so far ? Ileus with vomiting Abd distention - U/S and CT reviewed s/p 0.4 L of opaque, debris-containing ascites was removed 08/23 Acute pancreatitis with persistent necrosis - 08/14 status post KAYLIN drain placement + C paropsilosis. s/p additional drains 08/25 Anemia - S/p PRBCs Cholelithiasis with thickening of the gallbladder wall. Leucocytosis improving JUANA, hyperkalemia, Metabolic acidosis off dialysis Acute hypoxic resp failure ,bilateral pleural effusion and atelectasis hypocalcemia Prediabetes HTN s/p trach ESRD on HD Hyperglycemia Plan ICU monitoring Wound care Humidified O2 via nasal cannula for now but we can use trach shield as backup NG suctioning Nebulizers Continue IV antibiotics and micafungin Sedation with Precedex TPN protocol Continue Lind to bedside drainage Tracheostomy care Hope to eventually move towards decannulation (we have a speaking valve for now) Trend labs Appreciate subspecialist input She is critically ill Prognosis is extremely guarded at best still Total time 32-minute Comment Review of Relevant I have reviewed the following items kolby (where applicable) has been applied. Medications: Current Medications Medications (Trade) Dose Ordered Sig/Yvon Route PRN Reason Start Time Stop Time Status Last Admin Dose Admin Potassium Chloride 90 meq/ Magnesium Sulfate 20 meq/ Multivitamins 10 ml/Chromium/ Copper/Manganese/ Seleni/Zn 1 ml/ Insulin Human Regular 15 unit/ Total Parenteral Nutrition/Amino Acids/Dextrose/ Fat Emulsion Intravenous 1,890 ml @ 78.75 mls/ hr TPN CONT IV 09/03/19 22:00 09/04/19 21:59 09/03/19 22:15 Linezolid/Dextrose 300 ml @ 300 mls/hr Q12HR IV 09/04/19 09:00 09/04/19 09:11 Daptomycin 450 mg/ Sodium Chloride 50 ml @ 100 mls/hr Q24H IV 09/04/19 09:00 09/04/19 10:28 Hemodynamically unstable?: No Is patient in severe pain?: No Is NPO status required?: Yes BEBO KRIBY III DO September 04, 2019 13:04
[2019-09-04] MEDS: IV NORMAL SALINE 1000ML BAG 1,000 ML IV SCH (13:37)
[2019-09-04] MEDS ORDERED: METOPROLOL TARTRATE 5 MG/5 ML VIAL. IVP ONE (15:15)
--- NOTE | 2019-09-04 16:09 | PDOC ---
PROGRESS NOTES Subjective Subjective pt up in chair sleeping; I did not disturb her; nurse states that one of the drains came out overnight Objective Objective Vital Signs Date Time Temp Pulse Resp B/P (MAP) Pulse Ox O2 Delivery O2 Flow Rate FiO2 09/04/19 15:57 Nasal Cannula 2.0 09/04/19 15:31 145 124/65 09/04/19 15:00 36 99 09/04/19 12:00 98.6 98.6 Intake and Output 09/04/19 07:00 Intake Total 3314.28 ml Output Total 3925 ml Balance -610.72 ml Intake Oral 0 ml IV Total 3314.28 ml Output Urine Total 3200 ml Gastric Drainage Total 250 ml Drainage Total 475 ml Assessment Assessment Problems Medical Problems: (1) Acute pancreatitis Status: Acute (2) Cholelithiasis Status: Acute Plan Plan of Care Continue supportive care Comment Review of Relevant I have reviewed the following items kolby (where applicable) has been applied. Labs Laboratory Tests Test 09/02/19 17:59 09/03/19 01:15 09/03/19 05:45 09/03/19 05:54 Glucose (Fingerstick) 130 mg/dL (70-99) 153 mg/dL (70-99) 119 mg/dL (70-99) White Blood Count 11.3 x10^3/uL (4.0-11.0) Red Blood Count 2.65 x10^6/uL (3.50-5.40) Hemoglobin 7.5 g/dL (12.0-15.5) Hematocrit 23.6 % (36.0-47.0) Mean Corpuscular Volume 89 fL (79-100) Mean Corpuscular Hemoglobin 28 pg (25-35) Mean Corpuscular Hemoglobin Concent 32 g/dL (31-37) Red Cell Distribution Width 18.1 % (11.5-14.5) Platelet Count 524 x10^3/uL (140-400) Neutrophils (%) (Auto) 84 % (31-73) Lymphocytes (%) (Auto) 9 % (24-48) Monocytes (%) (Auto) 5 % (0-9) Eosinophils (%) (Auto) 1 % (0-3) Basophils (%) (Auto) 0 % (0-3) Neutrophils # (Auto) 9.5 x10^3/uL (1.8-7.7) Lymphocytes # (Auto) 1.0 x10^3/uL (1.0-4.8) Monocytes # (Auto) 0.6 x10^3/uL (0.0-1.1) Eosinophils # (Auto) 0.1 x10^3/uL (0.0-0.7) Basophils # (Auto) 0.0 x10^3/uL (0.0-0.2) Test 09/03/19 11:11 09/03/19 17:46 09/04/19 00:41 09/04/19 07:00 Glucose (Fingerstick) 162 mg/dL (70-99) 144 mg/dL (70-99) 177 mg/dL (70-99) White Blood Count 14.2 x10^3/uL (4.0-11.0) Red Blood Count 2.87 x10^6/uL (3.50-5.40) Hemoglobin 8.3 g/dL (12.0-15.5) Hematocrit 25.6 % (36.0-47.0) Mean Corpuscular Volume 89 fL (79-100) Mean Corpuscular Hemoglobin 29 pg (25-35) Mean Corpuscular Hemoglobin Concent 32 g/dL (31-37) Red Cell Distribution Width 18.1 % (11.5-14.5) Platelet Count 497 x10^3/uL (140-400) Neutrophils (%) (Auto) 68 % (31-73) Lymphocytes (%) (Auto) 25 % (24-48) Monocytes (%) (Auto) 6 % (0-9) Eosinophils (%) (Auto) 1 % (0-3) Basophils (%) (Auto) 0 % (0-3) Neutrophils # (Auto) 9.6 x10^3/uL (1.8-7.7) Lymphocytes # (Auto) 3.5 x10^3/uL (1.0-4.8) Monocytes # (Auto) 0.9 x10^3/uL (0.0-1.1) Eosinophils # (Auto) 0.2 x10^3/uL (0.0-0.7) Basophils # (Auto) 0.0 x10^3/uL (0.0-0.2) Sodium Level 140 mmol/L (136-145) Potassium Level 4.5 mmol/L (3.5-5.1) Chloride Level 99 mmol/L (98-107) Carbon Dioxide Level 40 mmol/L (21-32) Anion Gap 1 (6-14) Blood Urea Nitrogen 26 mg/dL (7-20) Creatinine 0.5 mg/dL (0.6-1.0) Estimated GFR (Cockcroft-Gault) 131.1 BUN/Creatinine Ratio 52 (6-20) Glucose Level 127 mg/dL (70-99) Calcium Level 9.2 mg/dL (8.5-10.1) Total Bilirubin 0.4 mg/dL (0.2-1.0) Aspartate Amino Transf (AST/SGOT) 29 U/L (15-37) Alanine Aminotransferase (ALT/SGPT) 27 U/L (14-59) Alkaline Phosphatase 109 U/L (46-116) Total Protein 6.7 g/dL (6.4-8.2) Albumin 2.2 g/dL (3.4-5.0) Albumin/Globulin Ratio 0.5 (1.0-1.7) Test 09/04/19 12:00 Glucose (Fingerstick) 225 mg/dL (70-99) Laboratory Tests Test 09/03/19 17:46 09/04/19 00:41 09/04/19 07:00 09/04/19 12:00 Glucose (Fingerstick) 144 mg/dL (70-99) 177 mg/dL (70-99) 225 mg/dL (70-99) White Blood Count 14.2 x10^3/uL (4.0-11.0) Red Blood Count 2.87 x10^6/uL (3.50-5.40) Hemoglobin 8.3 g/dL (12.0-15.5) Hematocrit 25.6 % (36.0-47.0) Mean Corpuscular Volume 89 fL (79-100) Mean Corpuscular Hemoglobin 29 pg (25-35) Mean Corpuscular Hemoglobin Concent 32 g/dL (31-37) Red Cell Distribution Width 18.1 % (11.5-14.5) Platelet Count 497 x10^3/uL (140-400) Neutrophils (%) (Auto) 68 % (31-73) Lymphocytes (%) (Auto) 25 % (24-48) Monocytes (%) (Auto) 6 % (0-9) Eosinophils (%) (Auto) 1 % (0-3) Basophils (%) (Auto) 0 % (0-3) Neutrophils # (Auto) 9.6 x10^3/uL (1.8-7.7) Lymphocytes # (Auto) 3.5 x10^3/uL (1.0-4.8) Monocytes # (Auto) 0.9 x10^3/uL (0.0-1.1) Eosinophils # (Auto) 0.2 x10^3/uL (0.0-0.7) Basophils # (Auto) 0.0 x10^3/uL (0.0-0.2) Sodium Level 140 mmol/L (136-145) Potassium Level 4.5 mmol/L (3.5-5.1) Chloride Level 99 mmol/L (98-107) Carbon Dioxide Level 40 mmol/L (21-32) Anion Gap 1 (6-14) Blood Urea Nitrogen 26 mg/dL (7-20) Creatinine 0.5 mg/dL (0.6-1.0) Estimated GFR (Cockcroft-Gault) 131.1 BUN/Creatinine Ratio 52 (6-20) Glucose Level 127 mg/dL (70-99) Calcium Level 9.2 mg/dL (8.5-10.1) Total Bilirubin 0.4 mg/dL (0.2-1.0) Aspartate Amino Transf (AST/SGOT) 29 U/L (15-37) Alanine Aminotransferase (ALT/SGPT) 27 U/L (14-59) Alkaline Phosphatase 109 U/L (46-116) Total Protein 6.7 g/dL (6.4-8.2) Albumin 2.2 g/dL (3.4-5.0) Albumin/Globulin Ratio 0.5 (1.0-1.7) Microbiology 08/24/19 Fungal Culture - Final, Complete 08/24/19 Fungal Culture Result 1 - Final, Complete 08/22/19 Blood Culture - Final, Complete NO GROWTH AFTER 5 DAYS 08/18/19 Aerobic Culture - Final, Complete 08/18/19 Aerobic Culture Result 1 (ALEXANDRA) - Final, Complete 08/18/19 Gram Stain - Final, Complete 08/18/19 Gram Stain Result 1 (ALEXANDRA) - Final, Complete 08/18/19 Gram Stain Result 2 (ALEXANDRA) - Final, Complete 07/31/19 Urine Culture - Final, Complete 07/31/19 Urine Culture Result 1 (ALEXANDRA) - Final, Complete Medications Current Medications Sodium Chloride 1,000 ml @ 1,000 mls/hr Q1H IV Last administered on 07/04/19at 03:00; Start 07/04/19 at 03:00; Stop 07/04/19 at 03:59; Status DC Ondansetron HCl (Zofran) 4 mg 1X ONCE IVP Last administered on 07/04/19at 03:27; Start 07/04/19 at 03:00; Stop 07/04/19 at 03:01; Status DC Morphine Sulfate (Morphine Sulfate) 4 mg 1X ONCE IV ; Start 07/04/19 at 03:00; Stop 07/04/19 at 03:01; Status Cancel Ketorolac Tromethamine (Toradol 30mg Vial) 30 mg 1X ONCE IV Last administered on 07/04/19at 02:54; Start 07/04/19 at 03:00; Stop 07/04/19 at 03:01; Status DC Fentanyl Citrate (Fentanyl 2ml Vial) 25 mcg 1X ONCE IVP Last administered on 07/04/19at 03:23; Start 07/04/19 at 03:30; Stop 07/04/19 at 03:31; Status DC Fentanyl Citrate (Fentanyl 2ml Vial) 100 mcg STK-MED ONCE .ROUTE ; Start 07/04/19 at 03:18; Stop 07/04/19 at 03:18; Status DC Iohexol (Omnipaque 350 Mg/ml) 90 ml 1X ONCE IV Last administered on 07/04/19at 03:25; Start 07/04/19 at 03:30; Stop 07/04/19 at 03:31; Status DC Info (CONTRAST GIVEN -- Rx MONITORING) 1 each PRN DAILY PRN MC SEE COMMENTS; Start 07/04/19 at 03:30; Stop 07/06/19 at 03:29; Status DC Hydromorphone HCl (Dilaudid) 0.5 mg 1X ONCE IV Last administered on 07/04/19at 03:55; Start 07/04/19 at 04:30; Stop 07/04/19 at 04:32; Status DC Ondansetron HCl (Zofran) 4 mg PRN Q8HRS PRN IV NAUSEA/VOMITING 1ST CHOICE; Start 07/04/19 at 05:00; Stop 07/04/19 at 09:27; Status DC Morphine Sulfate (Morphine Sulfate) 2 mg PRN Q2HR PRN IV SEVERE PAIN 7-10 Last administered on 07/05/19at 12:26; Start 07/04/19 at 05:00; Stop 07/05/19 at 14:15; Status DC Sodium Chloride 1,000 ml @ 125 mls/hr Q8H IV Last administered on 07/04/19at 20:56; Start 07/04/19 at 05:00; Stop 07/05/19 at 04:59; Status DC Hydromorphone HCl (Dilaudid) 0.5 mg PRN Q3HRS PRN IV SEVERE PAIN 7-10 Last administered on 07/05/19at 10:06; Start 07/04/19 at 05:00; Stop 07/05/19 at 12:01; Status DC Piperacillin Sod/ Tazobactam Sod 4.5 gm/Sodium Chloride 100 ml @ 200 mls/hr 1X ONCE IV Last administered on 07/04/19at 05:44; Start 07/04/19 at 06:00; Stop 07/04/19 at 06:29; Status DC Ondansetron HCl (Zofran) 4 mg PRN Q4HRS PRN IV NAUSEA/VOMITING 1ST CHOICE Last administered on 08/28/19at 17:09; Start 07/04/19 at 09:30 Insulin Human Lispro (HumaLOG) 0-9 UNITS Q6HRS SQ Last administered on 09/04/19at 12:02; Start 07/04/19 at 09:30 Dextrose (Dextrose 50%-Water Syringe) 12.5 gm PRN Q15MIN PRN IV SEE COMMENTS; Start 07/04/19 at 09:30 Pantoprazole Sodium (PROTONIX VIAL for IV PUSH) 40 mg DAILYAC IVP Last administered on 09/04/19at 09:08; Start 07/04/19 at 11:30 Prochlorperazine Edisylate (Compazine) 10 mg PRN Q6HRS PRN IV NAUSEA/VOMITING, 2nd CHOICE Last administered on 09/01/19at 06:11; Start 07/04/19 at 17:45 Atenolol (Tenormin) 100 mg DAILY PO ; Start 07/05/19 at 09:00; Stop 07/04/19 at 20:08; Status DC Metoprolol Tartrate (Lopressor Vial) 2.5 mg Q6HRS IVP Last administered on 07/05/19at 05:51; Start 07/04/19 at 20:15; Stop 07/05/19 at 10:02; Status DC Metoprolol Tartrate (Lopressor Vial) 5 mg Q6HRS IVP Last administered on 07/14/19at 00:12; Start 07/05/19 at 10:15; Stop 07/16/19 at 08:48; Status DC Hydromorphone HCl (Dilaudid) 1 mg PRN Q3HRS PRN IV SEVERE PAIN 7-10 Last administered on 07/11/19at 05:13; Start 07/05/19 at 12:00; Stop 07/19/19 at 00:25; Status DC Lidocaine HCl (Buffered Lidocaine 1%) 3 ml STK-MED ONCE .ROUTE ; Start 07/05/19 at 12:55; Stop 07/05/19 at 12:56; Status DC Albumin Human 500 ml @ 125 mls/hr 1X ONCE IV Last administered on 07/05/19at 14:33; Start 07/05/19 at 14:30; Stop 07/05/19 at 18:32; Status DC Norepinephrine Bitartrate 8 mg/ Dextrose 258 ml @ 17.299 mls/ hr CONT PRN IV PER PROTOCOL Last administered on 08/02/19at 12:48; Start 07/05/19 at 15:30; Stop 08/05/19 at 09:19; Status DC Sodium Chloride 1,000 ml @ 125 mls/hr Q8H IV Last administered on 07/05/19at 21:04; Start 07/05/19 at 16:00; Stop 07/06/19 at 02:42; Status DC Albumin Human 500 ml @ 125 mls/hr PRN BID PRN IV After every 2L NSS & BP < 90mm Last administered on 07/20/19at 14:21; Start 07/05/19 at 16:00 Iohexol (Omnipaque 300 Mg/ml) 60 ml 1X ONCE IV Last administered on 07/05/19at 17:20; Start 07/05/19 at 17:00; Stop 07/05/19 at 17:01; Status DC Info (CONTRAST GIVEN -- Rx MONITORING) 1 each PRN DAILY PRN MC SEE COMMENTS; Start 07/05/19 at 17:00; Stop 07/07/19 at 16:59; Status DC Meropenem 1 gm/ Sodium Chloride 100 ml @ 200 mls/hr Q8HRS IV Last administered on 07/06/19at 05:45; Start 07/05/19 at 20:00; Stop 07/06/19 at 08:48; Status DC Furosemide (Lasix) 40 mg 1X ONCE IVP Last administered on 07/05/19at 22:12; Start 07/05/19 at 22:30; Stop 07/05/19 at 22:31; Status DC Calcium Chloride 1000 mg/Sodium Chloride 110 ml @ 220 mls/hr 1X ONCE IV Last administered on 07/05/19at 22:11; Start 07/05/19 at 22:30; Stop 07/05/19 at 22:59; Status DC Albuterol Sulfate (Ventolin Neb Soln) 2.5 mg 1X ONCE NEB Last administered on 07/06/19at 00:56; Start 07/05/19 at 22:30; Stop 07/05/19 at 22:31; Status DC Insulin Human Regular (HumuLIN R VIAL) 5 unit 1X ONCE IV Last administered on 07/05/19at 22:14; Start 07/05/19 at 22:30; Stop 07/05/19 at 22:31; Status DC Magnesium Sulfate 50 ml @ 25 mls/hr 1X ONCE IV Last administered on 07/06/19at 02:57; Start 07/06/19 at 03:00; Stop 07/06/19 at 04:59; Status DC Calcium Gluconate 1000 mg/Sodium Chloride 110 ml @ 220 mls/hr 1X ONCE IV Last administered on 07/06/19at 02:46; Start 07/06/19 at 03:00; Stop 07/06/19 at 03:29; Status DC Sodium Chloride 1,000 ml @ 200 mls/hr Q5H IV Last administered on 07/06/19at 02:46; Start 07/06/19 at 03:00; Stop 07/06/19 at 10:21; Status DC Calcium Gluconate 1000 mg/Sodium Chloride 110 ml @ 220 mls/hr 1X ONCE IV Last administered on 07/06/19at 03:21; Start 07/06/19 at 03:30; Stop 07/06/19 at 03:59; Status DC Sodium Bicarbonate 50 meq/Sodium Chloride 1,050 ml @ 75 mls/hr Q14H IV Last administered on 07/10/19at 21:10; Start 07/06/19 at 07:30; Stop 07/11/19 at 10:28; Status DC Calcium Gluconate 2000 mg/Sodium Chloride 120 ml @ 220 mls/hr 1X ONCE IV Last administered on 07/06/19at 09:05; Start 07/06/19 at 07:30; Stop 07/06/19 at 08:02; Status DC Lidocaine HCl (Xylocaine-Mpf 1% 2ml Vial) 2 ml STK-MED ONCE .ROUTE ; Start 07/06/19 at 08:47; Stop 07/06/19 at 08:47; Status DC Meropenem 500 mg/ Sodium Chloride 50 ml @ 100 mls/hr Q12HR IV Last administered on 07/11/19at 21:01; Start 07/06/19 at 18:00; Stop 07/12/19 at 07:58; Status DC Lidocaine HCl (Buffered Lidocaine 1%) 3 ml STK-MED ONCE .ROUTE ; Start 07/06/19 at 09:46; Stop 07/06/19 at 09:46; Status DC Lidocaine HCl (Buffered Lidocaine 1%) 6 ml 1X ONCE INJ Last administered on 07/06/19at 10:26; Start 07/06/19 at 10:15; Stop 07/06/19 at 10:16; Status DC Info (Tpn Per Pharmacy) 1 each PRN DAILY PRN MC SEE COMMENTS Last administered on 09/04/19at 10:36; Start 07/06/19 at 12:00 Sodium Chloride 1,000 ml @ 1,000 mls/hr Q1H PRN IV hypotension; Start 07/06/19 at 12:07; Stop 07/06/19 at 18:06; Status DC Diphenhydramine HCl (Benadryl) 25 mg 1X PRN PRN IV ITCHING; Start 07/06/19 at 12:15; Stop 07/07/19 at 12:14; Status DC Diphenhydramine HCl (Benadryl) 25 mg 1X PRN PRN IV ITCHING; Start 07/06/19 at 12:15; Stop 07/07/19 at 12:14; Status DC Sodium Chloride 1,000 ml @ 400 mls/hr Q2H30M PRN IV PATENCY; Start 07/06/19 at 12:07; Stop 07/07/19 at 00:06; Status DC Info (PHARMACY MONITORING -- do not chart) 1 each PRN DAILY PRN MC SEE COMMENTS; Start 07/06/19 at 12:15; Stop 07/08/19 at 08:13; Status DC Sodium Chloride 90 meq/Calcium Gluconate 10 meq/ Multivitamins 10 ml/Chromium/ Copper/Manganese/ Seleni/Zn 1 ml/ Total Parenteral Nutrition/Amino Acids/Dextrose/ Fat Emulsion Intravenous 55.005 ml @ 2.292 mls/hr TPN CONT IV ; Start 07/06/19 at 22:00; Stop 07/06/19 at 12:33; Status DC Info (Tpn Per Pharmacy) 1 each PRN DAILY PRN MC SEE COMMENTS; Start 07/06/19 at 12:30; Status UNV Sodium Chloride 90 meq/Calcium Gluconate 10 meq/ Multivitamins 10 ml/Chromium/ Copper/Manganese/ Seleni/Zn 0.5 ml/ Total Parenteral Nutrition/Amino Acids/Dextrose/ Fat Emulsion Intravenous 1,512 ml @ 63 mls/hr TPN CONT IV Last administered on 07/06/19at 22:06; Start 07/06/19 at 22:00; Stop 07/07/19 at 21:59; Status DC Calcium Carbonate/ Glycine (Tums) 500 mg PRN AFTMEALHC PRN PO INDIGESTION; Start 07/06/19 at 17:45; Stop 08/31/19 at 10:25; Status DC Calcium Gluconate (Calcium Gluconate) 2,000 mg 1X ONCE IVP Last administered on 07/07/19at 02:19; Start 07/07/19 at 02:15; Stop 07/07/19 at 02:16; Status DC Calcium Chloride 3000 mg/Sodium Chloride 1,030 ml @ 50 mls/hr [id number] IV Last administered on 07/09/19at 02:17; Start 07/07/19 at 08:00; Stop 07/09/19 at 15:2 3; Status DC Lorazepam (Ativan Inj) 1 mg PRN Q4HRS PRN IVP ANXIETY / AGITATION, 2nd choic Last administered on 08/05/19at 03:51; Start 07/07/19 at 09:00; Stop 08/05/19 at 09:19; Status DC Sodium Chloride 1,000 ml @ 1,000 mls/hr Q1H PRN IV hypotension; Start 07/07/19 at 08:56; Stop 07/07/19 at 14:55; Status DC Albumin Human 200 ml @ 200 mls/hr 1X PRN PRN IV Hypotension; Start 07/07/19 at 09:00; Stop 07/07/19 at 14:59; Status DC Diphenhydramine HCl (Benadryl) 25 mg 1X PRN PRN IV ITCHING; Start 07/07/19 at 09:00; Stop 07/08/19 at 08:59; Status DC Diphenhydramine HCl (Benadryl) 25 mg 1X PRN PRN IV ITCHING; Start 07/07/19 at 09:00; Stop 07/08/19 at 08:59; Status DC Sodium Chloride 1,000 ml @ 400 mls/hr Q2H30M PRN IV PATENCY; Start 07/07/19 at 08:56; Stop 07/07/19 at 20:55; Status DC Info (PHARMACY MONITORING -- do not chart) 1 each PRN DAILY PRN MC SEE COMMENTS; Start 07/07/19 at 09:00; Status UNV Info (PHARMACY MONITORING -- do not chart) 1 each PRN DAILY PRN MC SEE COMMENTS; Start 07/07/19 at 09:00; Stop 07/08/19 at 08:13; Status DC Digoxin (Lanoxin) 500 mcg 1X ONCE IV Last administered on 07/07/19at 10:04; Start 07/07/19 at 10:00; Stop 07/07/19 at 10:01; Status DC Digoxin (Lanoxin) 125 mcg 1X ONCE IV Last administered on 07/07/19at 17:10; St art 07/07/19 at 18:00; Stop 07/07/19 at 18:01; Status DC Magnesium Sulfate 100 ml @ 25 mls/hr 1X ONCE IV Last administered on 07/07/19at 12:48; Start 07/07/19 at 13:00; Stop 07/07/19 at 16:59; Status DC Sodium Chloride 90 meq/Magnesium Sulfate 10 meq/ Calcium Gluconate 20 meq/ Multivitamins 10 ml/Chromium/ Copper/Manganese/ Seleni/Zn 0.5 ml/ Total Parenteral Nutrition/Amino Acids/Dextrose/ Fat Emulsion Intravenous 1,512 ml @ 63 mls/hr TPN CONT IV Last administered on 07/07/19at 22:25; Start 07/07/19 at 22:00; Stop 07/08/19 at 21:59; Status DC Sodium Chloride 1,000 ml @ 1,000 mls/hr Q1H PRN IV hypotension; Start 07/08/19 at 08:05; Stop 07/08/19 at 14:04; Status DC Albumin Human 200 ml @ 200 mls/hr 1X ONCE IV Last administered on 07/08/19at 08:57; Start 07/08/19 at 08:15; Stop 07/08/19 at 09:14; Status DC Diphenhydramine HCl (Benadryl) 25 mg 1X PRN PRN IV ITCHING; Start 07/08/19 at 08:15; Stop 07/09/19 at 08:14; Status DC Diphenhydramine HCl (Benadryl) 25 mg 1X PRN PRN IV ITCHING; Start 07/08/19 at 08:15; Stop 07/09/19 at 08:14; Status DC Sodium Chloride 1,000 ml @ 400 mls/hr Q2H30M PRN IV PATENCY; Start 07/08/19 at 08:05; Stop 07/08/19 at 20:04; Status DC Info (PHARMACY MONITORING -- do not chart) 1 each PRN DAILY PRN MC SEE COMMENTS; Start 07/08/19 at 08:15; Stop 07/12/19 at 07:57; Status DC Sodium Chloride 90 meq/Potassium Chloride 15 meq/ Potassium Phosphate 10 mmol/ Magnesium Sulfate 10 meq/Calcium Gluconate 20 meq/ Multivitamins 10 ml/Chromium/ Copper/Manganese/ Seleni/Zn 0.5 ml/ Total Parenteral Nutrition/Amino Acids/Dextrose/ Fat Emulsion Intravenous 1,512 ml @ 63 mls/hr TPN CONT IV Last administered on 07/08/19at 21:01; Start 07/08/19 at 22:00; Stop 07/09/19 at 21:59; Status DC Potassium Chloride/Water 100 ml @ 100 mls/hr 1X ONCE IV Last administered on 07/08/19at 14:09; Start 07/08/19 at 14:00; Stop 07/08/19 at 14:59; Status DC Benzocaine (Hurricaine One) 1 spray 1X ONCE MM Last administered on 07/08/19at 16:38; Start 07/08/19 at 14:30; Stop 07/08/19 at 14:31; Status DC Lidocaine HCl (Glydo (Lidocaine) Jelly) 1 ramu 1X ONCE MM Last administered on 07/08/19at 16:38; Start 07/08/19 at 14:30; Stop 07/08/19 at 14:31; Status DC Linezolid/Dextrose 300 ml @ 300 mls/hr Q12HR IV Last administered on 07/14/19at 21:04; Start 07/08/19 at 20:00; Stop 07/15/19 at 07:50; Status DC Acetaminophen (Tylenol) 650 mg PRN Q6HRS PRN PO MILD PAIN / TEMP; Start 07/09/19 at 03:30; Stop 07/09/19 at 03:36; Status DC Acetaminophen (Tylenol) 650 mg PRN Q6HRS PRN PEG MILD PAIN / TEMP Last administered on 08/04/19at 19:56; Start 07/09/19 at 03:36; Stop 08/31/19 at 10:25; Status DC Sodium Chloride 1,000 ml @ 1,000 mls/hr Q1H PRN IV hypotension; Start 07/09/19 at 07:50; Stop 07/09/19 at 13:49; Status DC Albumin Human 200 ml @ 200 mls/hr 1X PRN PRN IV Hypotension; Start 07/09/19 at 08:00; Stop 07/09/19 at 13:59; Status DC Sodium Chloride (Normal Saline Flush) 10 ml 1X PRN PRN IV AP catheter pack; Start 07/09/19 at 08:00; Stop 07/10/19 at 07:59; Status DC Sodium Chloride (Normal Saline Flush) 10 ml 1X PRN PRN IV [employer] catheter pack; Start 07/09/19 at 08:00; Stop 07/10/19 at 07:59; Status DC Sodium Chloride 1,000 ml @ 400 mls/hr Q2H30M PRN IV PATENCY; Start 07/09/19 at 07:50; Stop 07/09/19 at 19:49; Status DC Info (PHARMACY MONITORING -- do not chart) 1 each PRN DAILY PRN MC SEE COMMENTS; Start 07/09/19 at 08:00; Status UNV Info (PHARMACY MONITORING -- do not chart) 1 each PRN DAILY PRN MC SEE COMMENTS; Start 07/09/19 at 08:00; Stop 07/11/19 at 08:25; Status DC Sodium Chloride 90 meq/Potassium Chloride 15 meq/ Potassium Phosphate 10 mmol/ Magnesium Sulfate 10 meq/Calcium Gluconate 20 meq/ Multivitamins 10 ml/Chromium/ Copper/Manganese/ Seleni/Zn 0.5 ml/ Total Parenteral Nutrition/Amino Acids/Dextrose/ Fat Emulsion Intravenous 1,512 ml @ 63 mls/hr TPN CONT IV Last administered on 07/09/19at 20:57; Start 07/09/19 at 22:00; Stop 07/10/19 at 21:59; Status DC Sodium Chloride 90 meq/Potassium Chloride 15 meq/ Potassium Phosphate 15 mmol/ Magnesium Sulfate 10 meq/Calcium Gluconate 20 meq/ Multivitamins 10 ml/Chromium/ Copper/Manganese/ Seleni/Zn 0.5 ml/ Total Parenteral Nutrition/Amino Acids/Dextrose/ Fat Emulsion Intravenous 1,512 ml @ 63 mls/hr TPN CONT IV ; Start 07/10/19 at 22:00; Stop 07/10/19 at 14:16; Status DC Sodium Chloride 90 meq/Potassium Chloride 15 meq/ Potassium Phosphate 15 mmol/ Magnesium Sulfate 10 meq/Calcium Gluconate 20 meq/ Multivitamins 10 ml/Chromium/ Copper/Manganese/ Seleni/Zn 0.5 ml/ Total Parenteral Nutrition/Amino Acids/Dextrose/ Fat Emulsion Intravenous 1,200 ml @ 50 mls/hr TPN CONT IV ; Start 07/10/19 at 22:00; Stop 07/10/19 at 14:17; Status DC Sodium Chloride 90 meq/Potassium Chloride 15 meq/ Potassium Phosphate 10 mmol/ Magnesium Sulfate 10 meq/Calcium Gluconate 20 meq/ Multivitamins 10 ml/Chromium/ Copper/Manganese/ Seleni/Zn 0.5 ml/ Total Parenteral Nutrition/Amino Acids/Dextrose/ Fat Emulsion Intravenous 1,200 ml @ 50 mls/hr TPN CONT IV Last administered on 07/10/19at 23:29; Start 07/10/19 at 22:00; Stop 07/11/19 at 21:59; Status DC Sodium Chloride 1,000 ml @ 1,000 mls/hr Q1H PRN IV hypotension; Start 07/11/19 at 07:28; Stop 07/11/19 at 13:27; Status DC Albumin Human 200 ml @ 200 mls/hr 1X ONCE IV Last administered on 07/11/19at 08:51; Start 07/11/19 at 07:30; Stop 07/11/19 at 08:29; Status DC Diphenhydramine HCl (Benadryl) 25 mg 1X PRN PRN IV ITCHING; Start 07/11/19 at 07:30; Stop 07/12/19 at 07:29; Status DC Diphenhydramine HCl (Benadryl) 25 mg 1X PRN PRN IV ITCHING; Start 07/11/19 at 07:30; Stop 07/12/19 at 07:29; Status DC Sodium Chloride 1,000 ml @ 400 mls/hr Q2H30M PRN IV PATENCY; Start 07/11/19 at 07:28; Stop 07/11/19 at 19:27; Status DC Info (PHARMACY MONITORING -- do not chart) 1 each PRN DAILY PRN MC SEE COMMENTS; Start 07/11/19 at 07:30; Stop 07/22/19 at 13:01; Status DC Metronidazole 100 ml @ 100 mls/hr Q6HRS IV Last administered on 07/27/19at 06:26; Start 07/11/19 at 08:30; Stop 07/27/19 at 09:58; Status DC Micafungin Sodium 100 mg/Dextrose 100 ml @ 100 mls/hr Q24H IV Last administered on 08/18/19at 08:18; Start 07/11/19 at 09:00; Stop 08/18/19 at 20:58; Status DC Propofol 0 ml @ As Directed STK-MED ONCE IV ; Start 07/11/19 at 07:53; Stop 07/11/19 at 07:53; Status DC Etomidate (Amidate) 20 mg STK-MED ONCE IV ; Start 07/11/19 at 07:53; Stop 07/11/19 at 07:54; Status DC Midazolam HCl (Versed) 5 mg STK-MED ONCE .ROUTE ; Start 07/11/19 at 07:57; Stop 07/11/19 at 07:57; Status DC Fentanyl Citrate 30 ml @ 0 mls/hr CONT PRN IV SEE PROTOCOL Last administered on 08/05/19at 06:12; Start 07/11/19 at 08:15; Stop 08/05/19 at 09:19; Status DC Artificial Tears (Artificial Tears) 1 drop PRN Q1HR PRN OU DRY EYE, 1st choice; Start 07/11/19 at 08:15; Stop 08/17/19 at 05:31; Status DC Midazolam HCl 50 mg/Sodium Chloride 50 ml @ 0 mls/hr CONT PRN IV SEE PROTOCOL Last administered on 07/14/19at 22:39; Start 07/11/19 at 08:15; Stop 07/16/19 at 15:59; Status DC Etomidate (Amidate) 8 mg 1X ONCE IV Last administered on 07/11/19at 08:33; Start 07/11/19 at 08:30; Stop 07/11/19 at 08:31; Status DC Succinylcholine Chloride (Anectine) 120 mg 1X ONCE IV Last administered on 07/11/19at 08:34; Start 07/11/19 at 08:30; Stop 07/11/19 at 08:31; Status DC Midazolam HCl (Versed) 5 mg 1X ONCE IV ; Start 07/11/19 at 08:30; Stop 07/11/19 at 08:31; Status DC Potassium Chloride 15 meq/ Bicarbonate Dialysis Soln w/ out KCl 5,007.5 ml @ 1,000 mls/ hr Q5H1M IV Last administered on 07/12/19at 11:11; Start 07/11/19 at 12:00; Stop 07/12/19 at 11:15; Status DC Potassium Chloride 15 meq/ Bicarbonate Dialysis Soln w/ out KCl 5,007.5 ml @ 1,000 mls/ hr Q5H1M IV Last administered on 07/12/19at 11:12; Start 07/11/19 at 12:00; Stop 07/12/19 at 11:17; Status DC Potassium Chloride 15 meq/ Bicarbonate Dialysis Soln w/ out KCl 5,007.5 ml @ 1,000 mls/ hr Q5H1M IV Last administered on 07/12/19at 11:11; Start 07/11/19 at 12:00; Stop 07/12/19 at 11:19; Status DC Sodium Chloride 90 meq/Potassium Chloride 15 meq/ Potassium Phosphate 10 mmol/ Magnesium Sulfate 10 meq/Calcium Gluconate 20 meq/ Multivitamins 10 ml/Chromium/ Copper/Manganese/ Seleni/Zn 0.5 ml/ Total Parenteral Nutrition/Amino Acids/Dextrose/ Fat Emulsion Intravenous 1,400 ml @ 58.333 mls/ hr TPN CONT IV Last administered on 07/11/19at 21:42; Start 07/11/19 at 22:00; Stop 07/12/19 at 21:59; Status DC Heparin Sodium (Porcine) (Heparin Sodium) 5,000 unit Q8HRS SQ Last administered on 07/16/19at 05:55; Start 07/11/19 at 15:00; Stop 07/16/19 at 13:28; Status DC Meropenem 500 mg/ Sodium Chloride 50 ml @ 100 mls/hr Q6HRS IV Last administered on 07/13/19at 06:00; Start 07/12/19 at 09:00; Stop 07/13/19 at 07:29; Status DC Potassium Phosphate 20 mmol/ Sodium Chloride 106.6667 ml @ 51.667 m... 1X ONCE IV Last administered on 07/12/19at 11:22; Start 07/12/19 at 10:15; Stop 07/12/19 at 12:18; Status DC Acetaminophen (Tylenol Supp) 650 mg PRN Q6HRS PRN MO MILD PAIN / TEMP > 100.3'F Last administered on 08/23/19at 09:12; Start 07/12/19 at 10:30 Potassium Chloride/Water 100 ml @ 100 mls/hr Q1H IV Last administered on at 12:12; Start 07/12/19 at 11:00; Stop 07/12/19 at 12:59; Status DC Potassium Chloride 20 meq/ Bicarbonate Dialysis Soln w/ out KCl 5,010 ml @ 1,000 mls/hr Q5H1M IV Last administered on 07/13/19at 08:48; Start 07/12/19 at 12:00; Stop 07/13/19 at 13:03; Status DC Potassium Chloride 20 meq/ Bicarbonate Dialysis Soln w/ out KCl 5,010 ml @ 1,000 mls/hr Q5H1M IV Last administered on 07/17/19at 14:52; Start 07/12/19 at 11:30; Stop 07/17/19 at 19:59; Status DC Potassium Chloride 20 meq/ Bicarbonate Dialysis Soln w/ out KCl 5,010 ml @ 1,000 mls/hr Q5H1M IV Last administered on 07/17/19at 14:53; Start 07/12/19 at 11:30; Stop 07/17/19 at 19:59; Status DC Sodium Chloride 90 meq/Potassium Chloride 15 meq/ Potassium Phosphate 15 mmol/ Magnesium Sulfate 10 meq/Calcium Gluconate 15 meq/ Multivitamins 10 ml/Chromium/ Copper/Manganese/ Seleni/Zn 0.5 ml/ Total Parenteral Nutrition/Amino Acid s/Dextrose/ Fat Emulsion Intravenous 1,400 ml @ 58.333 mls/ hr TPN CONT IV Last administered on 07/12/19at 22:17; Start 07/12/19 at 22:00; Stop 07/13/19 at 21:59; Status DC Cefepime HCl (Maxipime) 2 gm Q12HR IVP Last administered on 07/26/19at 20:56; St art 07/13/19 at 09:00; Stop 07/27/19 at 09:58; Status DC Daptomycin 500 mg/ Sodium Chloride 50 ml @ 100 mls/hr Q48H IV Last adm inistered on 07/29/19at 09:57; Start 07/13/19 at 08:30; Stop 07/29/19 at 10:07; Status DC Lidocaine HCl (Buffered Lidocaine 1%) 3 ml 1X ONCE INJ Last administered on 07/13/19at 10:27; Start 07/13/19 at 10:30; Stop 07/13/19 at 10:31; Status DC Potassium Phosphate 20 mmol/ Sodium Chloride 106.6667 ml @ 51.667 m... 1X ONCE IV Last administered on 07/13/19at 12:51; Start 07/13/19 at 13:00; Stop 07/13/19 at 15:03; Status DC Sodium Chloride 90 meq/Potassium Chloride 15 meq/ Potassium Phosphate 18 mmol/ Magnesium Sulfate 8 meq/Calcium Gluconate 15 meq/ Multivitamins 10 ml/Chromium/ Copper/Manganese/ Seleni/Zn 0.5 ml/ Total Parenteral Nutrition/Amino Acids/Dextrose/ Fat Emulsion Intravenous 1,400 ml @ 58.333 mls/ hr TPN CONT IV Last administered on 07/13/19at 22:16; Start 07/13/19 at 22:00; Stop 07/14/19 at 21:59; Status DC Potassium Chloride 20 meq/ Bicarbonate Dialysis Soln w/ out KCl 5,010 ml @ 1,000 mls/hr Q5H1M IV Last administered on 07/17/19at 14:54; Start 07/13/19 at 16:00; Stop 07/17/19 at 19:59; Status DC Multi-Ingred Cream/Lotion/Oil/ Oint (Artificial Tears Eye Ointment) 1 ramu PRN Q1HR PRN OU DRY EYE, 2nd choice Last administered on 08/01/19at 08:19; Start 07/13/19 at 17:30 Sodium Chloride 90 meq/Potassium Chloride 15 meq/ Potassium Phosphate 18 mmol/ Magnesium Sulfate 8 meq/Calcium Gluconate 15 meq/ Multivitamins 10 ml/Chromium/ Copper/Manganese/ Seleni/Zn 0.5 ml/ Total Parenteral Nutrition/Amino Acids/Dextrose/ Fat Emulsion Intravenous 1,400 ml @ 58.333 mls/ hr TPN CONT IV Last administered on 07/14/19at 22:00; Start 07/14/19 at 22:00; Stop 07/15/19 at 21:59; Status DC Albumin Human 500 ml @ 125 mls/hr 1X ONCE IV ; Start 07/14/19 at 14:15; Stop 07/14/19 at 18:14; Status DC Sodium Chloride 90 meq/Potassium Chloride 15 meq/ Potassium Phosphate 18 mmol/ Magnesium Sulfate 8 meq/Calcium Gluconate 15 meq/ Multivitamins 10 ml/Chromium/ Copper/Manganese/ Seleni/Zn 0.5 ml/ Insulin Human Regular 10 unit/ Total Parenteral Nutrition/Amino Acids/Dextrose/ Fat Emulsion Intravenous 1,400 ml @ 58.333 mls/ hr TPN CONT IV Last administered on 07/15/19at 21:43; Start 07/15/19 at 22:00; Stop 07/16/19 at 21:59; Status DC Lidocaine HCl (Buffered Lidocaine 1%) 3 ml STK-MED ONCE .ROUTE ; Start 07/13/19 at 10:00; Stop 07/15/19 at 13:57; Status DC Midazolam HCl 100 mg/Sodium Chloride 100 ml @ 7 mls/hr CONT PRN IV SEE PROTOCOL Last administered on 07/27/19at 15:35; Start 07/16/19 at 16:00 Sodium Chloride 90 meq/Potassium Chloride 15 meq/ Potassium Phosphate 18 mmol/ Magnesium Sulfate 8 meq/Calcium Gluconate 15 meq/ Multivitamins 10 ml/Chromium/ Copper/Manganese/ Seleni/Zn 0.5 ml/ Insulin Human Regular 15 unit/ Total Parenteral Nutrition/Amino Acids/Dextrose/ Fat Emulsion Intravenous 1,400 ml @ 58.333 mls/ hr TPN CONT IV Last administered on 07/16/19at 20:34; Start at 22:00; Stop 07/17/19 at 21:59; Status DC Info (Icu Electrolyte Protocol) 1 ea CONT PRN PRN MC PER PROTOCOL; Start at 13:15 Sodium Chloride 90 meq/Potassium Chloride 15 meq/ Potassium Phosphate 18 mmol/ Magnesium Sulfate 8 meq/Calcium Gluconate 15 meq/ Multivitamins 10 ml/Chromium/ Copper/Manganese/ Seleni/Zn 0.5 ml/ Insulin Human Regular 15 unit/ Total Parenteral Nutrition/Amino Acids/Dextrose/ Fat Emulsion Intravenous 1,400 ml @ 58.333 mls/ hr TPN CONT IV Last administered on 07/17/19at 22:05; Start 07/17/19 at 22:00; Stop 07/18/19 at 21:59; Status DC Potassium Chloride 15 meq/ Bicarbonate Dialysis Soln w/ out KCl 5,007.5 ml @ 1,000 mls/ hr Q5H1M IV Last administered on 07/20/19at 18:14; Start 07/17/19 at 20:00; Stop 07/21/19 at 13:08; Status DC Potassium Chloride 15 meq/ Bicarbonate Dialysis Soln w/ out KCl 5,007.5 ml @ 1,000 mls/ hr Q5H1M IV Last administered on 07/20/19at 18:14; Start 07/17/19 at 20:00; Stop 07/21/19 at 13:08; Status DC Potassium Chloride 15 meq/ Bicarbonate Dialysis Soln w/ out KCl 5,007.5 ml @ 1,000 mls/ hr Q5H1M IV Last administered on 07/20/19at 18:14; Start 07/17/19 at 20:00; Stop 07/21/19 at 13:08; Status DC Iohexol (Omnipaque 240 Mg/ml) 30 ml 1X ONCE PO Last administered on 07/18/19at 11:30; Start 07/18/19 at 11:30; Stop 07/18/19 at 11:33; Status DC Info (CONTRAST GIVEN -- Rx MONITORING) 1 each PRN DAILY PRN MC SEE COMMENTS; Start 07/18/19 at 11:45; Stop 07/20/19 at 11:44; Status DC Sodium Chloride 90 meq/Potassium Chloride 15 meq/ Potassium Phosphate 18 mmol/ Magnesium Sulfate 8 meq/Calcium Gluconate 15 meq/ Multivitamins 10 ml/Chromium/ Copper/Manganese/ Seleni/Zn 0.5 ml/ Insulin Human Regular 15 unit/ Total Parenteral Nutrition/Amino Acids/Dextrose/ Fat Emulsion Intravenous 1,400 ml @ 58.333 mls/ hr TPN CONT IV Last administered on 07/18/19at 21:47; Start 07/18/19 at 22:00; Stop 07/19/19 at 21:59; Status DC Sodium Chloride 90 meq/Potassium Chloride 15 meq/ Potassium Phosphate 18 mmol/ Magnesium Sulfate 8 meq/Calcium Gluconate 15 meq/ Multivitamins 10 ml/Chromium/ Copper/Manganese/ Seleni/Zn 0.5 ml/ Insulin Human Regular 20 unit/ Total Parenteral Nutrition/Amino Acids/Dextrose/ Fat Emulsion Intravenous 1,400 ml @ 58.333 mls/ hr TPN CONT IV Last administered on 07/19/19at 21:36; Start 07/19/19 at 22:00; Stop 07/20/19 at 21:59; Status DC Alteplase, Recombinant (Cathflo For Central Catheter Clearance) 1 mg 1X ONCE INT CAT Last administered on 07/19/19at 20:03; Start 07/19/19 at 19:30; Stop 07/19/19 at 19:46; Status DC Alteplase, Recombinant (Cathflo For Central Catheter Clearance) 1 mg 1X ONCE INT CAT Last administered on 07/19/19at 22:05; Start 07/19/19 at 22:00; Stop 07/19/19 at 22:01; Status DC Sodium Chloride 90 meq/Potassium Chloride 15 meq/ Potassium Phosphate 18 mmol/ Magnesium Sulfate 8 meq/Calcium Gluconate 15 meq/ Multivitamins 10 ml/Chromium/ Copper/Manganese/ Seleni/Zn 0.5 ml/ Insulin Human Regular 20 unit/ Total Pare nteral Nutrition/Amino Acids/Dextrose/ Fat Emulsion Intravenous 1,400 ml @ 58.333 mls/ hr TPN CONT IV Last administered on 07/20/19at 21:30; Start 07/20/19 at 22:00; Stop 07/21/19 at 21:59; Status DC Dexmedetomidine HCl 400 mcg/ Sodium Chloride 100 ml @ 0 mls/hr CONT PRN IV ANXIETY / AGITATION Last administered on 09/04/19at 14:05; Start 07/21/19 at 08:15 Sodium Chloride 500 ml @ 500 mls/hr 1X PRN PRN IV ELEVATED BP, SEE COMMENTS; Start 07/21/19 at 08:15 Atropine Sulfate (ATROPINE 0.5mg SYRINGE) 0.5 mg PRN Q5MIN PRN IV SEE COMMENTS; Start 07/21/19 at 08:15 Furosemide (Lasix) 20 mg 1X ONCE IVP Last administered on 07/21/19at 08:19; Start 07/21/19 at 08:15; Stop 07/21/19 at 08:16; Status DC Lidocaine HCl (Buffered Lidocaine 1%) 3 ml STK-MED ONCE .ROUTE ; Start 07/21/19 at 08:39; Stop 07/21/19 at 08:39; Status DC Lidocaine HCl (Buffered Lidocaine 1%) 6 ml 1X ONCE INJ Last administered on 07/21/19at 09:05; Start 07/21/19 at 09:00; Stop 07/21/19 at 09:06; Status DC Sodium Chloride 90 meq/Potassium Chloride 15 meq/ Potassium Phosphate 18 mmol/ Magnesium Sulfate 8 meq/Calcium Gluconate 15 meq/ Multivitamins 10 ml/Chromium/ Copper/Manganese/ Seleni/Zn 0.5 ml/ Insulin Human Regular 20 unit/ Total Parenteral Nutrition/Amino Acids/Dextrose/ Fat Emulsion Intravenous 1,400 ml @ 58.333 mls/ hr TPN CONT IV Last administered on 07/21/19at 22:45; Start 07/21/19 at 22:00; Stop 07/22/19 at 21:59; Status DC Sodium Chloride 1,000 ml @ 1,000 mls/hr Q1H PRN IV hypotension; Start 07/22/19 at 07:30; Stop 07/22/19 at 13:29; Status DC Albumin Human 200 ml @ 200 mls/hr 1X PRN PRN IV Hypotension Last administered on 07/22/19at 09:36; Start 07/22/19 at 07:30; Stop 07/22/19 at 13:29; Status DC Sodium Chloride (Normal Saline Flush) 10 ml 1X PRN PRN IV AP catheter pack; Start 07/22/19 at 07:30; Stop 07/22/19 at 21:29; Status DC Sodium Chloride (Normal Saline Flush) 10 ml 1X PRN PRN IV PLANTING MATERIAL REMOVER catheter pack; Start 07/22/19 at 07:30; Stop 07/23/19 at 07:29; Status DC Sodium Chloride 1,000 ml @ 400 mls/hr Q2H30M PRN IV PATENCY; Start 07/22/19 at 07:30; Stop 07/22/19 at 19:29; Status DC Info (PHARMACY MONITORING -- do not chart) 1 each PRN DAILY PRN MC SEE COMMENTS; Start 07/22/19 at 07:30; Stop 07/22/19 at 13:02; Status DC Info (PHARMACY MONITORING -- do not chart) 1 each PRN DAILY PRN MC SEE COMMENTS; Start 07/22/19 at 07:30; Stop 07/24/19 at 12:45; Status DC Sodium Chloride 90 meq/Potassium Chloride 15 meq/ Potassium Phosphate 10 mmol/ Magnesium Sulfate 8 meq/Calcium Gluconate 15 meq/ Multivitamins 10 ml/Chromium/ Copper/Manganese/ Seleni/Zn 0.5 ml/ Insulin Human Regular 25 unit/ Total Parenteral Nutrition/Amino Acids/Dextrose/ Fat Emulsion Intravenous 1,400 ml @ 58.333 mls/ hr TPN CONT IV Last administered on 07/22/19at 22:19; Start 07/22/19 at 22:00; Stop 07/23/19 at 21:59; Status DC Heparin Sodium (Porcine) (Heparin Sodium) 5,000 unit Q12HR SQ Last administered on 08/14/19at 08:59; Start 07/22/19 at 21:00; Stop 08/14/19 at 10:05; Status DC Ondansetron HCl (Zofran) 4 mg PRN Q6HRS PRN IV NAUSEA/VOMITING; Start 07/25/19 at 07:00; Stop 07/26/19 at 06:59; Status DC Fentanyl Citrate (Fentanyl 2ml Vial) 25 mcg PRN Q5MIN PRN IV MILD PAIN 1-3; Start 07/25/19 at 07:00; Stop 07/26/19 at 06:59; Status DC Fentanyl Citrate (Fentanyl 2ml Vial) 50 mcg PRN Q5MIN PRN IV MODERATE TO SEVERE PAIN; Start 07/25/19 at 07:00; Stop 07/26/19 at 06:59; Status DC Ringer's Solution 1,000 ml @ 30 mls/hr Q24H IV ; Start 07/25/19 at 07:00; Stop 07/25/19 at 18:59; Status DC Lidocaine HCl (Xylocaine-Mpf 1% 2ml Vial) 2 ml PRN 1X PRN ID PRIOR TO IV START; Start 07/25/19 at 07:00; Stop 07/26/19 at 06:59; Status DC Prochlorperazine Edisylate (Compazine) 5 mg PACU PRN PRN IV NAUSEA, MRX1; Start 07/25/19 at 07:00; Stop 07/26/19 at 06:59; Status DC Sodium Chloride 1,000 ml @ 1,000 mls/hr Q1H PRN IV hypotension; Start 07/23/19 at 09:10; Stop 07/23/19 at 15:09; Status DC Albumin Human 200 ml @ 200 mls/hr 1X PRN PRN IV Hypotension Last administered on 07/23/19at 10:10; Start 07/23/19 at 09:15; Stop 07/23/19 at 15:14; Status DC Sodium Chloride 1,000 ml @ 400 mls/hr Q2H30M PRN IV PATENCY; Start 07/23/19 at 09:10; Stop 07/23/19 at 21:09; Status DC Info (PHARMACY MONITORING -- do not chart) 1 each PRN DAILY PRN MC SEE COMMENTS; Start 07/23/19 at 09:15; Stop 07/24/19 at 12:45; Status DC Info (PHARMACY MONITORING -- do not chart) 1 each PRN DAILY PRN MC SEE COM MENTS; Start 07/23/19 at 09:15; Stop 07/24/19 at 12:45; Status DC Sodium Chloride 90 meq/Potassium Chloride 15 meq/ Potassium Phosphate 10 mmol/ Magnesium Sulfate 8 meq/Calcium Gluconate 15 meq/ Multivitamins 10 ml/Chromium/ Copper/Manganese/ Seleni/Zn 0.5 ml/ Insulin Human Regular 25 unit/ Total Parenteral Nutrition/Amino Acids/Dextrose/ Fat Emulsion Intravenous 1,400 ml @ 58.333 mls/ hr TPN CONT IV Last administered on 07/23/19at 22:10; Start 07/23/19 at 22:00; Stop 07/24/19 at 21:59; Status DC Magnesium Sulfate 50 ml @ 25 mls/hr PRN DAILY PRN IV for Mag < 1.7 on am labs Last administered on 08/08/19at 17:27; Start 07/24/19 at 09:15 Sodium Chloride 90 meq/Potassium Chloride 15 meq/ Potassium Phosphate 10 mmol/ Magnesium Sulfate 8 meq/Calcium Gluconate 15 meq/ Multivitamins 10 ml/Chromium/ Copper/Manganese/ Seleni/Zn 0.5 ml/ Insulin Human Regular 25 unit/ Total Parenteral Nutrition/Amino Acids/Dextrose/ Fat Emulsion Intravenous 1,400 ml @ 58.333 mls/ hr TPN CONT IV Last administered on 07/24/19at 21:20; Start 07/24/19 at 22:00; Stop 07/25/19 at 21:59; Status DC Sodium Chloride 1,000 ml @ 1,000 mls/hr Q1H PRN IV hypotension; Start 07/24/19 at 12:23; Stop 07/24/19 at 18:22; Status DC Albumin Human 200 ml @ 200 mls/hr 1X ONCE IV Last administered on 07/24/19at 13 :34; Start 07/24/19 at 12:30; Stop 07/24/19 at 13:29; Status DC Diphenhydramine HCl (Benadryl) 25 mg 1X PRN PRN IV ITCHING; Start 07/24/19 at 12:30; Stop 07/25/19 at 12:29; Status DC Diphenhydramine HCl (Benadryl) 25 mg 1X PRN PRN IV ITCHING; Start 07/24/19 at 12:30; Stop 07/25/19 at 12:29; Status DC Info (PHARMACY MONITORING -- do not chart) 1 each PRN DAILY PRN MC SEE COMMENTS; Start 07/24/19 at 12:30; Status Cancel Bupivacaine HCl/ Epinephrine Bitart (Sensorcain-Epi 0.5%-1:014398 Mpf) 30 ml STK-MED ONCE .ROUTE Last administered on 07/25/19at 11:44; Start 07/25/19 at 11:00; Stop 07/25/19 at 11:01; Status DC Cellulose (Surgicel Fibrillar 1x2) 1 each STK-MED ONCE .ROUTE ; Start 07/25/19 at 11:00; Stop 07/25/19 at 11:01; Status DC Sodium Chloride 90 meq/Potassium Chloride 15 meq/ Potassium Phosphate 10 mmol/ Magnesium Sulfate 12 meq/Calcium Gluconate 15 meq/ Multivitamins 10 ml/Chromium/ Copper/Manganese/ Seleni/Zn 0.5 ml/ Insulin Human Regular 25 unit/ Total Parenteral Nutrition/Amino Acids/Dextrose/ Fat Emulsion Intravenous 1,400 ml @ 58.333 mls/ hr TPN CONT IV Last administered on 07/25/19at 22:24; Start 07/25/19 at 22:00; Stop 07/26/19 at 21:59; Status DC Propofol 20 ml @ As Directed STK-MED ONCE IV ; Start 07/25/19 at 11:07; Stop 07/25/19 at 11:07; Status DC Cellulose (Surgicel Hemostat 4x8) 1 each STK-MED ONCE .ROUTE Last administered on 07/25/19at 11:44; Start 07/25/19 at 11:55; Stop 07/25/19 at 11:56; Status DC Sevoflurane (Ultane) 60 ml STK-MED ONCE IH ; Start 07/25/19 at 12:46; Stop 07/25/19 at 12:46; Status DC Sodium Chloride 1,000 ml @ 1,000 mls/hr Q1H PRN IV hypotension; Start 07/25/19 at 13:51; Stop 07/25/19 at 19:50; Status DC Albumin Human 200 ml @ 200 mls/hr 1X PRN PRN IV Hypotension Last administered on 07/25/19at 14:51; Start 07/25/19 at 14:00; Stop 07/25/19 at 19:59; Status DC Diphenhydramine HCl (Benadryl) 25 mg 1X PRN PRN IV ITCHING; Start 07/25/19 at 14:00; Stop 07/26/19 at 13:59; Status DC Diphenhydramine HCl (Benadryl) 25 mg 1X PRN PRN IV ITCHING; Start 07/25/19 at 14:00; Stop 07/26/19 at 13:59; Status DC Sodium Chloride 1,000 ml @ 400 mls/hr Q2H30M PRN IV PATENCY; Start 07/25/19 at 13:51; Stop 07/26/19 at 01:50; Status DC Info (PHARMACY MONITORING -- do not chart) 1 each PRN DAILY PRN MC SEE COMMENTS; Start 07/25/19 at 14:00; Stop 07/28/19 at 08:16; Status DC Heparin Sodium (Porcine) (Hep Lock Adult) 500 unit STK-MED ONCE IVP ; Start 07/26/19 at 09:29; Stop 07/26/19 at 09:30; Status DC Sodium Chloride 1,000 ml @ 1,000 mls/hr Q1H PRN IV hypotension; Start 07/26/19 at 10:43; Stop 07/26/19 at 16:42; Status DC Sodium Chloride 1,000 ml @ 400 mls/hr Q2H30M PRN IV PATENCY; Start 07/26/19 at 10:43; Stop 07/26/19 at 22:42; Status DC Info (PHARMACY MONITORING -- do not chart) 1 each PRN DAILY PRN MC SEE COMMENTS; Start 07/26/19 at 10:45; Status UNV Info (PHARMACY MONITORING -- do not chart) 1 each PRN DAILY PRN MC SEE COMMENTS; Start 07/26/19 at 10:45; Status UNV Sodium Chloride 90 meq/Potassium Chloride 15 meq/ Magnesium Sulfate 12 meq/Calcium Gluconate 15 meq/ Multivitamins 10 ml/Chromium/ Copper/Manganese/ Seleni/Zn 0.5 ml/ Insulin Human Regular 25 unit/ Total Parenteral Nutrition/Amino Acids/Dextrose/ Fat Emulsion Intravenous 1,400 ml @ 58.333 mls/ hr TPN CONT IV Last administered on 07/26/19at 22:13; Start 07/26/19 at 22:00; Stop 07/27/19 at 21:59; Status DC Sodium Chloride 1,000 ml @ 1,000 mls/hr Q1H PRN IV hypotension; Start 07/27/19 at 07:50; Stop 07/27/19 at 13:49; Status DC Albumin Human 200 ml @ 200 mls/hr 1X ONCE IV ; Start 07/27/19 at 08:00; Stop 07/27/19 at 08:53; Status DC Diphenhydramine HCl (Benadryl) 25 mg 1X PRN PRN IV ITCHING; Start 07/27/19 at 08:00; Stop 07/28/19 at 07:59; Status DC Diphenhydramine HCl (Benadryl) 25 mg 1X PRN PRN IV ITCHING; Start 07/27/19 at 08:00; Stop 07/28/19 at 07:59; Status DC Info (PHARMACY MONITORING -- do not chart) 1 each PRN DAILY PRN MC SEE COMMENTS; Start 07/27/19 at 08:00; Stop 07/28/19 at 08:16; Status DC Albumin Human 50 ml @ 50 mls/hr 1X ONCE IV ; Start 07/27/19 at 08:53; Stop 07/27/19 at 08:56; Status DC Albumin Human 200 ml @ 50 mls/hr PRN 1X PRN IV HYPOTENSION Last administered on 08/02/19at 11:54; Start 07/27/19 at 09:00 Meropenem 500 mg/ Sodium Chloride 50 ml @ 100 mls/hr Q12H IV Last administered on 08/16/19at 10:45; Start 07/27/19 at 10:00; Stop 08/16/19 at 12:37; Status DC Sodium Chloride 90 meq/Magnesium Sulfate 12 meq/ Calcium Gluconate 15 meq/ Multivitamins 10 ml/Chromium/ Copper/Manganese/ Seleni/Zn 0.5 ml/ Insulin Human Regular 25 unit/ Total Parenteral Nutrition/Amino Acids/Dextrose/ Fat Emulsion Intravenous 1,400 ml @ 58.333 mls/ hr TPN CONT IV Last administered on 07/27/19at 21:41; Start 07/27/19 at 22:00; Stop 07/28/19 at 21:59; Status DC Sodium Chloride 1,000 ml @ 1,000 mls/hr Q1H PRN IV hypotension; Start 07/28/19 at 07:58; Stop 07/28/19 at 13:57; Status DC Albumin Human 200 ml @ 200 mls/hr 1X PRN PRN IV Hypotension Last administered on 07/28/19at 09:30; Start 07/28/19 at 08:00; Stop 07/28/19 at 13:59; Status DC Sodium Chloride 1,000 ml @ 400 mls/hr Q2H30M PRN IV PATENCY; Start 07/28/19 at 07:58; Stop 07/28/19 at 19:57; Status DC Info (PHARMACY MONITORING -- do not chart) 1 each PRN DAILY PRN MC SEE COMMENTS; Start 07/28/19 at 08:00; Status Cancel Info (PHARMACY MONITORING -- do not chart) 1 each PRN DAILY PRN MC SEE COMMENTS; Start 07/28/19 at 08:15; Status UNV Sodium Chloride 90 meq/Potassium Phosphate 5 mmol/ Magnesium Sulfate 12 meq/Calcium Gluconate 15 meq/ Multivitamins 10 ml/Chromium/ Copper/Manganese/ Seleni/Zn 0.5 ml/ Insulin Human Regular 30 unit/ Total Parenteral Nutrition/Amino Acids/Dextrose/ Fat Emulsion Intravenous 1,400 ml @ 58.333 mls/ hr TPN CONT IV Last administered on 07/28/19at 22:08; Start 07/28/19 at 22:00; Stop 07/29/19 at 21:59; Status DC Linezolid/Dextrose 300 ml @ 300 mls/hr Q12HR IV Last administered on 08/08/19at 20:40; Start 07/29/19 at 11:00; Stop 08/09/19 at 08:10; Status DC Sodium Chloride 90 meq/Potassium Phosphate 15 mmol/ Magnesium Sulfate 12 meq/Calcium Gluconate 15 meq/ Multivitamins 10 ml/Chromium/ Copper/Manganese/ Seleni/Zn 0.5 ml/ Insulin Human Regular 30 unit/ Total Parenteral Nutrition/Amino Acids/Dextrose/ Fat Emulsion Intravenous 1,400 ml @ 58.333 mls/ hr TPN CONT IV Last administered on 07/29/19at 21:49; Start 07/29/19 at 22:00; Stop 07/30/19 at 21:59; Status DC Sodium Chloride 90 meq/Potassium Phosphate 15 mmol/ Magnesium Sulfate 12 meq/Calcium Gluconate 15 meq/ Multivitamins 10 ml/Chromium/ Copper/Manganese/ Seleni/Zn 0.5 ml/ Insulin Human Regular 40 unit/ Total Parenteral Nutrition/Amino Acids/Dextrose/ Fat Emulsion Intravenous 1,400 ml @ 58.333 mls/ hr TPN CONT IV Last administered on 07/30/19at 21:21; Start 07/30/19 at 22:00; Stop 07/31/19 at 21:59; Status DC Sodium Chloride 1,000 ml @ 1,000 mls/hr Q1H PRN IV hypotension; Start 07/30/19 at 13:26; Stop 07/30/19 at 19:25; Status DC Albumin Human 200 ml @ 200 mls/hr 1X PRN PRN IV Hypotension Last administered on 07/30/19at 15:00; Start 07/30/19 at 13:30; Stop 07/30/19 at 19:29; Status DC Sodium Chloride (Normal Saline Flush) 10 ml 1X PRN PRN IV AP catheter pack; Start 07/30/19 at 13:30; Stop 07/31/19 at 13:29; Status DC Sodium Chloride (Normal Saline Flush) 10 ml 1X PRN PRN IV PLANTING MATERIAL REMOVER catheter pack; Start 07/30/19 at 13:30; Stop 07/31/19 at 13:29; Status DC Sodium Chloride 1,000 ml @ 400 mls/hr Q2H30M PRN IV PATENCY; Start 07/30/19 at 13:26; Stop 07/31/19 at 01:25; Status DC Info (PHARMACY MONITORING -- do not chart) 1 each PRN DAILY PRN MC SEE COMMENTS; Start 07/30/19 at 13:30; Stop 07/30/19 at 13:33; Status DC Info (PHARMACY MONITORING -- do not chart) 1 each PRN DAILY PRN MC SEE COMMENTS; Start 07/30/19 at 13:30; Stop 07/30/19 at 13:34; Status DC Sodium Chloride 90 meq/Potassium Phosphate 19 mmol/ Magnesium Sulfate 12 meq/Calcium Gluconate 15 meq/ Multivitamins 10 ml/Chromium/ Copper/Manganese/ Seleni/Zn 0.5 ml/ Insulin Human Regular 40 unit/ Total Parenteral Nutrition/Amino Acids/Dextrose/ Fat Emulsion Intravenous 1,400 ml @ 58.333 mls/ hr TPN CONT IV Last administered on 07/31/19at 21:54; Start 07/31/19 at 22:00; Stop 08/01/19 at 21:59; Status DC Sodium Chloride 1,000 ml @ 1,000 mls/hr Q1H PRN IV hypotension; Start 08/01/19 at 09:35; Stop 08/01/19 at 15:34; Status DC Albumin Human 200 ml @ 200 mls/hr 1X PRN PRN IV Hypotension; Start 08/01/19 at 09:45; Stop 08/01/19 at 15:44; Status DC Diphenhydramine HCl (Benadryl) 25 mg 1X PRN PRN IV ITCHING; Start 08/01/19 at 09:45; Stop 08/02/19 at 09:44; Status DC Diphenhydramine HCl (Benadryl) 25 mg 1X PRN PRN IV ITCHING; Start 08/01/19 at 09:45; Stop 08/02/19 at 09:44; Status DC Sodium Chloride 1,000 ml @ 400 mls/hr Q2H30M PRN IV PATENCY; Start 08/01/19 at 09:35; Stop 08/01/19 at 21:34; Status DC Info (PHARMACY MONITORING -- do not chart) 1 each PRN DAILY PRN MC SEE COMMENTS; Start 08/01/19 at 09:45; Status Cancel Sodium Chloride 100 meq/Potassium Phosphate 19 mmol/ Magnesium Sulfate 12 meq/Calcium Gluconate 15 meq/ Multivitamins 10 ml/Chromium/ Copper/Manganese/ Seleni/Zn 0.5 ml/ Insulin Human Regular 40 unit/ Potassium Chloride 20 meq/ Total Parenteral Nutrition/Amino Acids/Dextrose/ Fat Emulsion Intravenous 1,400 ml @ 58.333 mls/ hr TPN CONT IV Last administered on 08/01/19at 22:02; Start 08/01/19 at 22:00; Stop 08/02/19 at 21:59; Status DC Furosemide (Lasix) 40 mg 1X ONCE IVP Last administered on 08/01/19at 14:39; Start 08/01/19 at 14:30; Stop 08/01/19 at 14:31; Status DC Metronidazole 100 ml @ 100 mls/hr Q8HRS IV Last administered on 08/09/19at 06:04; Start 08/02/19 at 10:00; Stop 08/09/19 at 08:10; Status DC Sodium Chloride 1,000 ml @ 1,000 mls/hr Q1H PRN IV hypotension; Start 08/02/19 at 08:00; Stop 08/02/19 at 13:59; Status DC Albumin Human 200 ml @ 200 mls/hr 1X PRN PRN IV Hypotension; Start 08/02/19 at 08:00; Stop 08/02/19 at 13:59; Status DC Sodium Chloride 1,000 ml @ 400 mls/hr Q2H30M PRN IV PATENCY; Start 08/02/19 at 08:00; Stop 08/02/19 at 19:59; Status DC Info (PHARMACY MONITORING -- do not chart) 1 each PRN DAILY PRN MC SEE COMMENTS; Start 08/02/19 at 11:30; Status UNV Info (PHARMACY MONITORING -- do not chart) 1 each PRN DAILY PRN MC SEE COMMENTS; Start 08/02/19 at 11:30; Stop 08/04/19 at 12:13; Status DC Sodium Chloride 100 meq/Potassium Phosphate 19 mmol/ Magnesium Sulfate 12 meq/Calcium Gluconate 15 meq/ Multivitamins 10 ml/Chromium/ Copper/Manganese/ Seleni/Zn 0.5 ml/ Insulin Human Regular 40 unit/ Potassium Chloride 20 meq/ Total Parenteral Nutrition/Amino Acids/Dextrose/ Fat Emulsion Intravenous 1,400 ml @ 58.333 mls/ hr TPN CONT IV Last administered on 08/02/19at 21:52; Start 08/02/19 at 22:00; Stop 08/03/19 at 21:59; Status DC Sodium Chloride (Normal Saline Flush) 10 ml QSHIFT PRN IV AFTER MEDS AND BLOOD DRAWS; Start 08/02/19 at 15:00; Stop 08/30/19 at 11:27; Status DC Sodium Chloride (Normal Saline Flush) 10 ml PRN Q5MIN PRN IV AFTER MEDS AND BLOOD DRAWS; Start 08/02/19 at 15:00 Sodium Chloride (Normal Saline Flush) 20 ml PRN Q5MIN PRN IV AFTER MEDS AND BLOOD DRAWS; Start 08/02/19 at 15:00 Sodium Chloride 100 meq/Potassium Phosphate 19 mmol/ Magnesium Sulfate 12 meq/Calcium Gluconate 15 meq/ Multivitamins 10 ml/Chromium/ Copper/Manganese/ Seleni/Zn 0.5 ml/ Insulin Human Regular 40 unit/ Potassium Chloride 20 meq/ Total Parenteral Nutrition/Amino Acids/Dextrose/ Fat Emulsion Intravenous 1,400 ml @ 58.333 mls/ hr TPN CONT IV Last administered on 08/03/19at 21:20; Start 08/03/19 at 22:00; Stop 08/04/19 at 21:59; Status DC Lidocaine HCl (Buffered Lidocaine 1%) 3 ml STK-MED ONCE .ROUTE ; Start 08/03/19 at 13:16; Stop 08/03/19 at 13:16; Status DC Lidocaine HCl (Buffered Lidocaine 1%) 6 ml 1X ONCE INJ Last administered on 08/03/19at 13:45; Start 08/03/19 at 13:30; Stop 08/03/19 at 13:31; Status DC Albumin Human 100 ml @ 100 mls/hr 1X ONCE IV Last administered on 08/03/19at 15:41; Start 08/03/19 at 15:00; Stop 08/03/19 at 15:59; Status DC Albumin Human 50 ml @ 50 mls/hr 1X ONCE IV Last administered on 08/03/19at 15:00; Start 08/03/19 at 15:00; Stop 08/03/19 at 15:59; Status DC Info (PHARMACY MONITORING -- do not chart) 1 each PRN DAILY PRN MC SEE COMMENTS; Start 08/04/19 at 11:30; Status Cancel Info (PHARMACY MONITORING -- do not chart) 1 each PRN DAILY PRN MC SEE COMMENTS; Start 08/04/19 at 11:30; Status UNV Sodium Chloride 100 meq/Potassium Phosphate 10 mmol/ Magnesium Sulfate 12 meq/Calcium Gluconate 15 meq/ Multivitamins 10 ml/Chromium/ Copper/Manganese/ Se [place]/Zn 0.5 ml/ Insulin Human Regular 35 unit/ Potassium Chloride 20 meq/ Total Parenteral Nutrition/Amino Acids/Dextrose/ Fat Emulsion Intravenous 1,400 ml @ 58.333 mls/ hr TPN CONT IV Last administered on 08/04/19at 22:10; Start 08/04/19 at 22:00; Stop 08/05/19 at 21:59; Status DC Sodium Chloride 100 meq/Potassium Phosphate 5 mmol/ Magnesium Sulfate 12 meq/Calcium Gluconate 15 meq/ Multivitamins 10 ml/Chromium/ Copper/Manganese/ Seleni/Zn 0.5 ml/ Insulin Human Regular 35 unit/ Potassium Chloride 20 meq/ Total Parenteral Nutrition/Amino Acids/Dextrose/ Fat Emulsion Intravenous 1,400 ml @ 58.333 mls/ hr TPN CONT IV Last administered on 08/05/19at 22:59; Start 08/05/19 at 22:00; Stop 08/06/19 at 21:59; Status DC Sodium Chloride 1,000 ml @ 1,000 mls/hr Q1H PRN IV hypotension; Start 08/06/19 at 08:27; Stop 08/06/19 at 14:26; Status DC Albumin Human 200 ml @ 200 mls/hr 1X PRN PRN IV Hypotension Last administered on 08/06/19at 09:18; Start 08/06/19 at 08:30; Stop 08/06/19 at 14:29; Status DC Sodium Chloride 1,000 ml @ 400 mls/hr Q2H30M PRN IV PATENCY; Start 08/06/19 at 08:27; Stop 08/06/19 at 20:26; Status DC Info (PHARMACY MONITORING -- do not chart) 1 each PRN DAILY PRN MC SEE COMMENTS; Start 08/06/19 at 08:30; Status Cancel Info (PHARMACY MONITORING -- do not chart) 1 each PRN DAILY PRN MC SEE COMMENTS; Start 08/06/19 at 08:30; Stop 08/14/19 at 13:10; Status DC Sodium Chloride 100 meq/Potassium Chloride 40 meq/ Magnesium Sulfate 15 meq/Calcium Gluconate 15 meq/ Multivitamins 10 ml/Chromium/ Copper/Manganese/ Seleni/Zn 0.5 ml/ Insulin Human Regular 35 unit/ Total Parenteral Nutrition/Amino Acids/Dextrose/ Fat Emulsion Intravenous 1,400 ml @ 58.333 mls/ hr TPN CONT IV Last administered on 08/06/19at 22:00; Start 08/06/19 at 22:00; Stop 08/07/19 at 21:59; Status DC Potassium Chloride/Water 100 ml @ 100 mls/hr 1X ONCE IV Last administered on 08/06/19at 17:28; Start 08/06/19 at 14:45; Stop 08/06/19 at 15:44; Status DC Sodium Chloride 100 meq/Potassium Chloride 40 meq/ Magnesium Sulfate 15 meq/Calcium Gluconate 15 meq/ Multivitamins 10 ml/Chromium/ Copper/Manganese/ Seleni/Zn 0.5 ml/ Insulin Human Regular 35 unit/ Total Parenteral Nutrition/Amino Acids/Dextrose/ Fat Emulsion Intravenous 1,400 ml @ 58.333 mls/ hr TPN CONT IV Last administered on 08/07/19at 22:46; Start 08/07/19 at 22:00; Stop 08/08/19 at 21:59; Status DC Sodium Chloride 100 meq/Potassium Chloride 40 meq/ Magnesium Sulfate 20 meq/Calcium Gluconate 15 meq/ Multivitamins 10 ml/Chromium/ Copper/Manganese/ Seleni/Zn 0.5 ml/ Insulin Human Regular 35 unit/ Total Parenteral Nutrition/Amino Acids/Dextrose/ Fat Emulsion Intravenous 1,400 ml @ 58.333 mls/ hr TPN CONT IV Last administered on 08/08/19at 22:31; Start 08/08/19 at 22:00; Stop 08/09/19 at 21:59; Status DC Fentanyl Citrate (Fentanyl 2ml Vial) 50 mcg PRN Q2HR PRN IVP PAIN Last administered on 08/15/19at 13:32; Start 08/08/19 at 21:00; Stop 08/16/19 at 12:53; Status DC Fentanyl Citrate (Fentanyl 2ml Vial) 25 mcg PRN Q2HR PRN IVP PAIN; Start 08/08/19 at 21:00; Stop 08/16/19 at 12:54; Status DC Enoxaparin Sodium (Lovenox 100mg Syringe) 100 mg Q12HR SQ ; Start 08/09/19 at 21:00; Status UNV Amino Acids/ Glycerin/ Electrolytes 1,000 ml @ 75 mls/hr [id number] IV ; Start 08/08/19 at 21:15; Status UNV Sodium Chloride 1,000 ml @ 1,000 mls/hr Q1H PRN IV hypotension; Start 08/09/19 at 07:56; Stop 08/09/19 at 13:55; Status DC Albumin Human 200 ml @ 200 mls/hr 1X PRN PRN IV Hypotension Last administered on 08/09/19at 08:40; Start 08/09/19 at 08:00; Stop 08/09/19 at 13:59; Status DC Sodium Chloride 1,000 ml @ 400 mls/hr Q2H30M PRN IV PATENCY; Start 08/09/19 at 07:56; Stop 08/09/19 at 19:55; Status DC Info (PHARMACY MONITORING -- do not chart) 1 each PRN DAILY PRN MC SEE COMMENTS; Start 08/09/19 at 08:00; Status UNV Info (PHARMACY MONITORING -- do not chart) 1 each PRN DAILY PRN MC SEE COMMENTS; Start 08/09/19 at 08:00; Status UNV Daptomycin 430 mg/ Sodium Chloride 50 ml @ 100 mls/hr Q24H IV Last administered on 08/09/19at 12:35; Start 08/09/19 at 09:00; Stop 08/09/19 at 12:49; Status DC Sodium Chloride 100 meq/Potassium Chloride 40 meq/ Magnesium Sulfate 20 meq/Calcium Gluconate 15 meq/ Multivitamins 10 ml/Chromium/ Copper/Manganese/ Seleni/Zn 0.5 ml/ Insulin Human Regular 35 unit/ Total Parenteral Nutrition/Amino Acids/Dextrose/ Fat Emulsion Intravenous 1,400 ml @ 58.333 mls/ hr TPN CONT IV Last administered on 08/09/19at 21:26; Start 08/09/19 at 22:00; Stop 08/10/19 at 21:59; Status DC Daptomycin 430 mg/ Sodium Chloride 50 ml @ 100 mls/hr Q48H IV ; Start 08/11/19 at 09:00; Stop 08/10/19 at 11:55; Status DC Sodium Chloride 100 meq/Potassium Chloride 40 meq/ Magnesium Sulfate 20 meq/Calcium Gluconate 15 meq/ Multivitamins 10 ml/Chromium/ Copper/Manganese/ Seleni/Zn 0.5 ml/ Insulin Human Regular 35 unit/ Total Parenteral Nutrition/Amino Acids/Dextrose/ Fat Emulsion Intravenous 1,400 ml @ 58.333 mls/ hr TPN CONT IV Last administered on 08/10/19at 22:27; Start 08/10/19 at 22:00; Stop 08/11/19 at 21:59; Status DC Daptomycin 430 mg/ Sodium Chloride 50 ml @ 100 mls/hr Q24H IV Last admini stered on 08/12/19at 15:07; Start 08/10/19 at 13:00; Stop 08/13/19 at 13:15; Status DC Sodium Chloride 100 meq/Potassium Chloride 40 meq/ Magnesium Sulfate 20 meq/Calcium Gluconate 10 meq/ Multivitamins 10 ml/Chromium/ Copper/Manganese/ Seleni/Zn 0.5 ml/ Insulin Human Regular 35 unit/ Total Parenteral Nutrition/Amino Acids/Dextrose/ Fat Emulsion Intravenous 1,400 ml @ 58.333 mls/ hr TPN CONT IV Last administered on 08/12/19at 00:06; Start 08/11/19 at 22:00; Stop 08/12/19 at 21:59; Status DC Alteplase, Recombinant (Cathflo For Central Catheter Clearance) 1 mg 1X ONCE INT CAT Last administered on 08/12/19at 11:44; Start 08/12/19 at 10:45; Stop 08/12/19 at 10:46; Status DC Ondansetron HCl (Zofran) 4 mg PRN Q6HRS PRN IV NAUSEA/VOMITING; Start 08/15/19 at 07:00; Stop 08/16/19 at 06:59; Status DC Fentanyl Citrate (Fentanyl 2ml Vial) 25 mcg PRN Q5MIN PRN IV MILD PAIN 1-3; Start 08/15/19 at 07:00; Stop 08/16/19 at 06:59; Status DC Fentanyl Citrate (Fentanyl 2ml Vial) 50 mcg PRN Q5MIN PRN IV MODERATE TO SEVERE PAIN Last administered on 08/15/19at 10:17; Start 08/15/19 at 07:00; Stop 08/16/19 at 06:59; Status DC Ringer's Solution 1,000 ml @ 30 mls/hr Q24H IV ; Start 08/15/19 at 07:00; Stop 08/15/19 at 18:59; Status DC Lidocaine HCl (Xylocaine-Mpf 1% 2ml Vial) 2 ml PRN 1X PRN ID PRIOR TO IV START; Start 08/15/19 at 07:00; Stop 08/16/19 at 06:59; Status DC Prochlorperazine Edisylate (Compazine) 5 mg PACU PRN PRN IV NAUSEA, MRX1; Start 08/15/19 at 07:00; Stop 08/16/19 at 06:59; Status DC Sodium Acetate 50 meq/Potassium Acetate 55 meq/ Magnesium Sulfate 20 meq/Calcium Gluconate 10 meq/ Multivitamins 10 ml/Chromium/ Copper/Manganese/ Seleni/Zn 0.5 ml/ Insulin Human Regular 35 unit/ Total Parenteral Nutrition/Amino Acids/Dextrose/ Fat Emulsion Intravenous 1,400 ml @ 58.333 mls/ hr TPN CONT IV ; Start 08/12/19 at 22:00; Stop 08/12/19 at 14:15; Status DC Sodium Acetate 50 meq/Potassium Acetate 55 meq/ Magnesium Sulfate 20 meq/Calcium Gluconate 10 meq/ Multivitamins 10 ml/Chromium/ Copper/Manganese/ Seleni/Zn 0.5 ml/ Insulin Human Regular 35 unit/ Total Parenteral Nutrition/Amino Acids/Dextrose/ Fat Emulsion Intravenous 1,800 ml @ 75 mls/hr TPN CONT IV Last administered on 08/12/19at 22:38; Start 08/12/19 at 22:00; Stop 08/13/19 at 21:59; Status DC Sodium Chloride 1,000 ml @ 1,000 mls/hr Q1H PRN IV hypotension; Start 08/12/19 at 15:31; Stop 08/12/19 at 21:30; Status DC Diphenhydramine HCl (Benadryl) 25 mg 1X PRN PRN IV ITCHING; Start 08/12/19 at 15:45; Stop 08/13/19 at 15:44; Status DC Diphenhydramine HCl (Benadryl) 25 mg 1X PRN PRN IV ITCHING; Start 08/12/19 at 15:45; Stop 08/13/19 at 15:44; Status DC Sodium Chloride 1,000 ml @ 400 mls/hr Q2H30M PRN IV PATENCY; Start 08/12/19 at 15:31; Stop 08/13/19 at 03:30; Status DC Info (PHARMACY MONITORING -- do not chart) 1 each PRN DAILY PRN MC SEE COMMENTS; Start 08/12/19 at 15:45 Sodium Acetate 50 meq/Potassium Acetate 55 meq/ Magnesium Sulfate 20 meq/Calcium Gluconate 10 meq/ Multivitamins 10 ml/Chromium/ Copper/Manganese/ Seleni/Zn 0.5 ml/ Insulin Human Regular 35 unit/ Total Parenteral Nutrition/Amino Acids/Dextrose/ Fat Emulsion Intravenous 1,800 ml @ 75 mls/hr TPN CONT IV Last administered on 08/13/19at 22:03; Start 08/13/19 at 22:00; Stop 08/14/19 at 21:59; Status DC Daptomycin 430 mg/ Sodium Chloride 50 ml @ 100 mls/hr Q24H IV Last administered on 08/18/19at 13:00; Start 08/13/19 at 13:00; Stop 08/18/19 at 20:58; Status DC Heparin Sodium (Porcine) 1000 unit/Sodium Chloride 1,001 ml @ 1,001 mls/hr 1X ONCE IRR ; Start 08/15/19 at 06:00; Stop 08/15/19 at 06:59; Status DC Potassium Acetate 55 meq/Magnesium Sulfate 20 meq/ Calcium Gluconate 10 meq/ Multivitamins 10 ml/Chromium/ Copper/Manganese/ Seleni/Zn 0.5 ml/ Insulin Human Regular 35 unit/ Total Parenteral Nutrition/Amino Acids/Dextrose/ Fat Emulsion Intravenous 1,920 ml @ 80 mls/hr TPN CONT IV Last administered on 08/14/19at 22:10; Start 08/14/19 at 22:00; Stop 08/15/19 at 21:59; Status DC Dexamethasone Sodium Phosphate (Decadron) 4 mg STK-MED ONCE .ROUTE ; Start 08/15/19 at 10:56; Stop 08/15/19 at 10:57; Status DC Ondansetron HCl (Zofran) 4 mg STK-MED ONCE .ROUTE ; Start 08/15/19 at 10:56; Stop 08/15/19 at 10:57; Status DC Rocuronium [place] (Zemuron) 50 mg STK-MED ONCE .ROUTE ; Start 08/15/19 at 10:56; Stop 08/15/19 at 10:57; Status DC Fentanyl Citrate (Fentanyl 2ml Vial) 100 mcg STK-MED ONCE .ROUTE ; Start 08/15/19 at 10:56; Stop 08/15/19 at 10:57; Status DC Bupivacaine HCl/ Epinephrine Bitart (Sensorcain-Epi 0.5%-1:[id number] Mpf) 30 ml STK-MED ONCE .ROUTE Last administered on 08/15/19at 12:01; Start 08/15/19 at 10:58; Stop 08/15/19 at 10:58; Status DC Cellulose (Surgicel Hemostat 2x14) 1 each STK-MED ONCE .ROUTE ; Start 08/15/19 at 10:58; Stop 08/15/19 at 10:59; Status DC Iohexol (Omnipaque 300 Mg/ml) 50 ml STK-MED ONCE .ROUTE ; Start 08/15/19 at 10:58; Stop 08/15/19 at 10:59; Status DC Cellulose (Surgicel Hemostat 4x8) 1 each STK-MED ONCE .ROUTE ; Start 08/15/19 at 10:58; Stop 08/15/19 at 10:59; Status DC Bisacodyl (Dulcolax Supp) 10 mg STK-MED ONCE .ROUTE ; Start 08/15/19 at 10:59; Stop 08/15/19 at 10:59; Status DC Heparin Sodium (Porcine) 1000 unit/Sodium Chloride 1,001 ml @ 1,001 mls/hr 1X ONCE IRR ; Start 08/15/19 at 12:00; Stop 08/15/19 at 12:59; Status DC Propofol 20 ml @ As Directed STK-MED ONCE IV ; Start 08/15/19 at 11:05; Stop at 11:05; Status DC Sevoflurane (Ultane) 90 ml STK-MED ONCE IH ; Start 08/15/19 at 11:05; Stop 08/15/19 at 11:05; Status DC Sevoflurane (Ultane) 60 ml STK-MED ONCE IH ; Start 08/15/19 at 12:26; Stop 08/15/19 at 12:27; Status DC Propofol 20 ml @ As Directed STK-MED ONCE IV ; Start 08/15/19 at 12:26; Stop 08/15/19 at 12:27; Status DC Phenylephrine HCl (PHENYLEPHRINE in 0.9% NACL PF) 1 mg STK-MED ONCE IV ; Start 08/15/19 at 12:34; Stop 08/15/19 at 12:34; Status DC Heparin Sodium (Porcine) (Heparin Sodium) 5,000 unit Q12HR SQ Last administered on 08/24/19at 20:57; Start 08/15/19 at 21:00; Stop 08/25/19 at 09:59; Status DC Sodium Chloride (Normal Saline Flush) 3 ml QSHIFT PRN IV AFTER MEDS AND BLOOD DRAWS; Start 08/15/19 at 13:45 Naloxone HCl (Narcan) 0.4 mg PRN Q2MIN PRN IV SEE INSTRUCTIONS; Start 08/15/19 at 13:45 Sodium Chloride 1,000 ml @ 25 mls/hr Q24H IV Last administered on 09/04/19at 13:37; Start 08/15/19 at 13:37 Naloxone HCl (Narcan) 0.4 mg PRN Q2MIN PRN IV SEE INSTRUCTIONS; Start 08/15/19 at 14:30; Status UNV Sodium Chloride 1,000 ml @ 25 mls/hr Q24H IV ; Start 08/15/19 at 14:30; Status UNV Hydromorphone HCl 30 ml @ 0 mls/hr CONT PRN PRN IV PER PROTOCOL Last administered on 08/20/19at 16:08; Start 08/15/19 at 14:30; Stop 08/22/19 at 08:55; Status DC Potassium Acetate 55 meq/Magnesium Sulfate 20 meq/ Calcium Gluconate 10 meq/ Multivitamins 10 ml/Chromium/ Copper/Manganese/ Seleni/Zn 0.5 ml/ Insulin Human Regular 35 unit/ Total Parenteral Nutrition/Amino Acids/Dextrose/ Fat Emulsion Intravenous 1,920 ml @ 80 mls/hr TPN CONT IV Last administered on 08/15/19at 22:01; Start 08/15/19 at 22:00; Stop 08/16/19 at 21:59; Status DC Bumetanide (Bumex) 2 mg [id number] IV Last administered on 08/19/19at 13:50; Start 08/16/19 at 14:00; Stop 08/20/19 at 14:10; Status DC Meropenem 1 gm/ Sodium Chloride 100 ml @ 200 mls/hr Q8HRS IV Last administered on 09/04/19at 14:04; Start 08/16/19 at 14:00 Potassium Acetate 55 meq/Magnesium Sulfate 20 meq/ Calcium Gluconate 10 meq/ Multivitamins 10 ml/Chromium/ Copper/Manganese/ Seleni/Zn 0.5 ml/ Insulin Human Regular 35 unit/ Total Parenteral Nutrition/Amino Acids/Dextrose/ Fat Emulsion Intravenous 1,920 ml @ 80 mls/hr TPN CONT IV Last administered on 08/16/19at 22:02; Start 08/16/19 at 22:00; Stop 08/17/19 at 21:59; Status DC Hydromorphone HCl (Dilaudid Standard COUNSELING AIDE) 12 mg STK-MED ONCE IV ; Start 08/15/19 at 14:35; Stop 08/16/19 at 13:53; Status DC Artificial Tears (Artificial Tears) 1 drop PRN Q15MIN PRN OU DRY EYE Last administered on 08/26/19at 22:00; Start 08/17/19 at 05:30 Hydromorphone HCl (Dilaudid Standard COUNSELING AIDE) 12 mg STK-MED ONCE IV ; Start 08/16/19 at 12:05; Stop 08/17/19 at 09:15; Status DC Potassium Acetate 65 meq/Magnesium Sulfate 20 meq/ Calcium Gluconate 10 meq/ Multivitamins 10 ml/Chromium/ Copper/Manganese/ Seleni/Zn 0.5 ml/ Insulin Human Regular 30 unit/ Total Parenteral Nutrition/Amino Acids/Dextrose/ Fat Emulsion Intravenous 1,920 ml @ 80 mls/hr TPN CONT IV Last administered on 08/17/19at 22:22; Start 08/17/19 at 22:00; Stop 08/18/19 at 21:59; Status DC Cyclobenzaprine HCl (Flexeril) 10 mg PRN Q6HRS PRN PO MUSCLE SPASMS; Start 08/18/19 at 10:45 Potassium Acetate 55 meq/Magnesium Sulfate 20 meq/ Calcium Gluconate 10 meq/ Multivitamins 10 ml/Chromium/ Copper/Manganese/ Seleni/Zn 0.5 ml/ Insulin Human Regular 30 unit/ Total Parenteral Nutrition/Amino Acids/Dextrose/ Fat Emulsion Intravenous 1,920 ml @ 80 mls/hr TPN CONT IV Last administered on 08/19/19at 01:00; Start 08/18/19 at 22:00; Stop 08/19/19 at 21:59; Status DC Magnesium Sulfate 50 ml @ 25 mls/hr 1X ONCE IV Last administered on 08/18/19at 17:18; Start 08/18/19 at 12:45; Stop 08/18/19 at 14:44; Status DC Potassium Chloride/Water 100 ml @ 100 mls/hr 1X ONCE IV Last administered on 08/19/19at 11:27; Start 08/19/19 at 12:00; Stop 08/19/19 at 12:59; Status DC Hydromorphone HCl (Dilaudid Standard COUNSELING AIDE) 12 mg STK-MED ONCE IV ; Start 08/17/19 at 10:50; Stop 08/19/19 at 11:02; Status DC Hydromorphone HCl (Dilaudid Standard COUNSELING AIDE) 12 mg STK-MED ONCE IV ; Start 08/18/19 at 13:47; Stop 08/19/19 at 11:03; Status DC Potassium Acetate 30 meq/Magnesium Sulfate 20 meq/ Calcium Gluconate 10 meq/ Multivitamins 10 ml/Chromium/ Copper/Manganese/ Seleni/Zn 0.5 ml/ Insulin Human Regular 30 unit/ Potassium Chloride 30 meq/ Total Parenteral Nutrition/Amino Acids/Dextrose/ Fat Emulsion Intravenous 1,920 ml @ 80 mls/hr TPN CONT IV Last administered on 08/19/19at 22:34; Start 08/19/19 at 22:00; Stop 08/20/19 at 21:59; Status DC Potassium Chloride/Water 100 ml @ 100 mls/hr Q1H IV Last administered on 08/20/19at 13:05; Start 08/20/19 at 07:00; Stop 08/20/19 at 10:59; Status DC Magnesium Sulfate 50 ml @ 25 mls/hr 1X ONCE IV Last administered on 08/20/19at 10:34; Start 08/20/19 at 10:30; Stop 08/20/19 at 12:29; Status DC Potassium Chloride 75 meq/ Magnesium Sulfate 20 meq/Calcium Gluconate 10 meq/ Multivitamins 10 ml/Chromium/ Copper/Manganese/ Seleni/Zn 0.5 ml/ Insulin Human Regular 30 unit/ Total Parenteral Nutrition/Amino Acids/Dextrose/ Fat Emulsion Intravenous 1,920 ml @ 80 mls/hr TPN CONT IV Last administered on 08/20/19at 21:51; Start 08/20/19 at 22:00; Stop 08/21/19 at 22:00; Status DC Potassium Chloride 75 meq/ Magnesium Sulfate 20 meq/Calcium Gluconate 10 meq/ Multivitamins 10 ml/Chromium/ Copper/Manganese/ Seleni/Zn 0.5 ml/ Insulin Human Regular 25 unit/ Total Parenteral Nutrition/Amino Acids/Dextrose/ Fat Emulsion Intravenous 1,920 ml @ 80 mls/hr TPN CONT IV Last administered on 08/21/19at 22:04; Start 08/21/19 at 22:00; Stop 08/22/19 at 21:59; Status DC Hydromorphone HCl (Dilaudid) 0.4 mg PRN Q4HRS PRN IVP PAIN Last administered on 08/22/19at 10:57; Start 08/22/19 at 09:00; Stop 08/22/19 at 18:59; Status DC Micafungin Sodium 100 mg/Dextrose 100 ml @ 100 mls/hr Q24H IV Last administered on 09/04/19at 11:07; Start 08/22/19 at 11:00 Daptomycin 485 mg/ Sodium Chloride 50 ml @ 100 mls/hr Q24H IV Last administered on 08/29/19at 13:10; Start 08/22/19 at 11:00; Stop 08/30/19 at 07:44; Status DC Potassium Chloride 75 meq/ Magnesium Sulfate 15 meq/Calcium Gluconate 8 meq/ Multivitamins 10 ml/Chromium/ Copper/Manganese/ Seleni/Zn 0.5 ml/ Insulin Human Regular 25 unit/ Total Parenteral Nutrition/Amino Acids/Dextrose/ Fat Emulsion Intravenous 1,920 ml @ 80 mls/hr TPN CONT IV Last administered on 08/22/19at 23:08; Start 08/22/19 at 22:00; Stop 08/23/19 at 21:59; Status DC Haloperidol Lactate (Haldol Inj) 3 mg 1X ONCE IVP Last administered on 08/22/19at 14:37; Start 08/22/19 at 14:30; Stop 08/22/19 at 14:31; Status DC Hydromorphone HCl (Dilaudid) 1 mg PRN Q4HRS PRN IVP PAIN Last administered on 09/04/19at 14:05; Start 08/22/19 at 19:00 Potassium Chloride 75 meq/ Magnesium Sulfate 15 meq/Calcium Gluconate 8 meq/ Multivitamins 10 ml/Chromium/ Copper/Manganese/ Seleni/Zn 0.5 ml/ Insulin Human Regular 20 unit/ Total Parenteral Nutrition/Amino Acids/Dextrose/ Fat Emulsion Intravenous 1,920 ml @ 80 mls/hr TPN CONT IV Last administered on 08/23/19at 22:10; Start 08/23/19 at 22:00; Stop 08/24/19 at 21:59; Status DC Lidocaine HCl (Buffered Lidocaine 1%) 3 ml STK-MED ONCE .ROUTE ; Start 08/24/19 at 11:31; Stop 08/24/19 at 11:31; Status DC Lidocaine HCl (Buffered Lidocaine 1%) 3 ml STK-MED ONCE .ROUTE ; Start 08/24/19 at 12:28; Stop 08/24/19 at 12:29; Status DC Lidocaine HCl (Buffered Lidocaine 1%) 6 ml 1X ONCE INJ Last administered on 08/24/19at 12:53; Start 08/24/19 at 12:45; Stop 08/24/19 at 12:46; Status DC Potassium Chloride 75 meq/ Magnesium Sulfate 15 meq/Calcium Gluconate 8 meq/ Multivitamins 10 ml/Chromium/ Copper/Manganese/ Seleni/Zn 0.5 ml/ Insulin Human Regular 20 unit/ Total Parenteral Nutrition/Amino Acids/Dextrose/ Fat Emulsion Intravenous 1,920 ml @ 80 mls/hr TPN CONT IV Last administered on 08/24/19at 22:00; Start 08/24/19 at 22:00; Stop 08/25/19 at 21:59; Status DC Potassium Chloride 75 meq/ Magnesium Sulfate 15 meq/Calcium Gluconate 8 meq/ Multivitamins 10 ml/Chromium/ Copper/Manganese/ Seleni/Zn 0.5 ml/ Insulin Human Regular 15 unit/ Total Parenteral Nutrition/Amino Acids/Dextrose/ Fat Emulsion Intravenous 1,920 ml @ 80 mls/hr TPN CONT IV Last administered on 08/25/19at 22:28; Start 08/25/19 at 22:00; Stop 08/26/19 at 21:59; Status DC Vecuronium [place] (Norcuron Bolus) 6 mg PRN Q6HRS PRN IV VENT ASYNCHRONY; Start 08/25/19 at 19:15; Stop 08/25/19 at 19:35; Status DC Bumetanide (Bumex) 2 mg 1X ONCE IV Last administered on 08/25/19at 22:09; Start 08/25/19 at 19:45; Stop 08/25/19 at 19:46; Status DC Lidocaine HCl (Buffered Lidocaine 1%) 3 ml STK-MED ONCE .ROUTE ; Start 08/26/19 at 07:59; Stop 08/26/19 at 07:59; Status DC Midazolam HCl (Versed) 5 mg STK-MED ONCE .ROUTE ; Start 08/26/19 at 08:36; Stop 08/26/19 at 08:36; Status DC Fentanyl Citrate (Fentanyl 5ml Vial) 250 mcg STK-MED ONCE .ROUTE ; Start 08/26/19 at 08:36; Stop 08/26/19 at 08:37; Status DC Lidocaine HCl (Buffered Lidocaine 1%) 3 ml 1X ONCE IJ Last administered on 08/26/19at 09:30; Start 08/26/19 at 09:15; Stop 08/26/19 at 09:16; Status DC Midazolam HCl (Versed) 5 mg 1X ONCE IV Last administered on 08/26/19 09:30; Start 08/26/19 at 09:15; Stop 08/26/19 at 09:16; Status DC Fentanyl Citrate (Fentanyl 5ml Vial) 250 mcg 1X ONCE IV Last administered on 08/26/19at 09:30; Start 08/26/19 at 09:15; Stop 08/26/19 at 09:16; Status DC Bumetanide (Bumex) 2 mg DAILY IV Last administered on 09/04/19at 09:09; Start 08/26/19 at 10:00 Potassium Chloride 75 meq/ Magnesium Sulfate 15 meq/ Multivitamins 10 ml/Chromium/ Copper/Manganese/ Seleni/Zn 0.5 ml/ Insulin Human Regular 15 unit/ Total Parenteral Nutrition/Amino Acids/Dextrose/ Fat Emulsion Intravenous 1,920 ml @ 80 mls/hr TPN CONT IV Last administered on 08/26/19at 21:59; Start 08/26/19 at 22:00; Stop 08/27/19 at 21:59; Status DC Metoclopramide HCl (Reglan Vial) 10 mg PRN Q3HRS PRN IVP NAUSEA/VOMITING-3rd choice Last administered on 09/01/19at 04:25; Start 08/27/19 at 16:45 Potassium Chloride 75 meq/ Magnesium Sulfate 15 meq/ Multivitamins 10 ml/Chromium/ Copper/Manganese/ Seleni/Zn 0.5 ml/ Insulin Human Regular 15 unit/ Total Parenteral Nutrition/Amino Acids/Dextrose/ Fat Emulsion Intravenous 1,920 ml @ 80 mls/hr TPN CONT IV Last administered on 08/27/19at 22:41; Start 08/27/19 at 22:00; Stop 08/28/19 at 21:59; Status DC Magnesium Sulfate 50 ml @ 25 mls/hr 1X ONCE IV Last administered on 08/28/19at 10:44; Start 08/28/19 at 09:00; Stop 08/28/19 at 10:59; Status DC Potassium Chloride/Water 100 ml @ 100 mls/hr 1X ONCE IV Last administered on 08/28/19at 09:37; Start 08/28/19 at 09:00; Stop 08/28/19 at 09:59; Status DC Duloxetine HCl (Cymbalta) 30 mg DAILY PO Last administered on 08/29/19at 09:48; Start 08/28/19 at 14:00; Stop 08/31/19 at 10:25; Status DC Potassium Chloride 80 meq/ Magnesium Sulfate 20 meq/ Multivitamins 10 ml/Chromium/ Copper/Manganese/ Seleni/Zn 0.5 ml/ Insulin Human Regular 15 unit/ Total Parenteral Nutrition/Amino Acids/Dextrose/ Fat Emulsion Intravenous 1,920 ml @ 80 mls/hr TPN CONT IV Last administered on 08/28/19at 21:42; Start 08/28/19 at 22:00; Stop 08/29/19 at 21:59; Status DC Potassium Chloride 80 meq/ Magnesium Sulfate 20 meq/ Multivitamins 10 ml/Chromium/ Copper/Manganese/ Seleni/Zn 0.5 ml/ Insulin Human Regular 15 unit/ Total Parenteral Nutrition/Amino Acids/Dextrose/ Fat Emulsion Intravenous 1,920 ml @ 80 mls/hr TPN CONT IV Last administered on 08/29/19at 22:20; Start 08/29/19 at 22:00; Stop 08/30/19 at 21:59; Status DC Lidocaine HCl (Buffered Lidocaine 1%) 3 ml STK-MED ONCE .ROUTE ; Start 08/30/19 at 09:54; Stop 08/30/19 at 09:55; Status DC Hydromorphone HCl (Dilaudid Standard COUNSELING AIDE) 12 mg STK-MED ONCE IV ; Start 08/19/19 at 15:50; Stop 08/30/19 at 11:24; Status DC Potassium Chloride 80 meq/ Magnesium Sulfate 20 meq/ Multivitamins 10 ml/Chromium/ Copper/Manganese/ Seleni/Zn 0.5 ml/ Insulin Human Regular 15 unit/ Total Parenteral Nutrition/Amino Acids/Dextrose/ Fat Emulsion Intravenous 1,920 ml @ 80 mls/hr TPN CONT IV Last administered on 08/30/19at 21:40; Start 08/30/19 at 22:00; Stop 08/31/19 at 21:59; Status DC Lidocaine HCl (Buffered Lidocaine 1%) 6 ml 1X ONCE INJ Last administered on 08/30/19at 14:15; Start 08/30/19 at 14:15; Stop 08/30/19 at 14:16; Status DC Potassium Chloride 80 meq/ Magnesium Sulfate 20 meq/ Multivitamins 10 ml/Chromium/ Copper/Manganese/ Seleni/Zn 1 ml/ Insulin Human Regular 15 unit/ Total Parenteral Nutrition/Amino Acids/Dextrose/ Fat Emulsion Intravenous 1,920 ml @ 80 mls/hr TPN CONT IV Last administered on 08/31/19at 22:04; Start 08/31/19 at 22:00; Stop 09/01/19 at 21:59; Status DC Potassium Chloride/Water 100 ml @ 100 mls/hr 1X ONCE IV Last administered on 09/01/19at 11:34; Start 09/01/19 at 11:00; Stop 09/01/19 at 11:59; Status DC Potassium Chloride 90 meq/ Magnesium Sulfate 20 meq/ Multivitamins 10 ml/Chromium/ Copper/Manganese/ Seleni/Zn 1 ml/ Insulin Human Regular 15 unit/ Total Parenteral Nutrition/Amino Acids/Dextrose/ Fat Emulsion Intravenous 1,920 ml @ 80 mls/hr TPN CONT IV Last administered on 09/01/19at 22:57; Start 09/01/19 at 22:00; Stop 09/02/19 at 21:59; Status DC Potassium Chloride 90 meq/ Magnesium Sulfate 20 meq/ Multivitamins 10 ml/Chromium/ Copper/Manganese/ Seleni/Zn 1 ml/ Insulin Human Regular 15 unit/ Total Parenteral Nutrition/Amino Acids/Dextrose/ Fat Emulsion Intravenous 1,920 ml @ 80 mls/hr TPN CONT IV Last administered on 09/02/19at 22:48; Start 09/02/19 at 22:00; Stop 09/03/19 at 21:59; Status DC Potassium Chloride 90 meq/ Magnesium Sulfate 20 meq/ Multivitamins 10 ml/Chromium/ Copper/Manganese/ Seleni/Zn 1 ml/ Insulin Human Regular 15 unit/ Total Parenteral Nutrition/Amino Acids/Dextrose/ Fat Emulsion Intravenous 1,890 ml @ 78.75 mls/ hr TPN CONT IV Last administered on 09/03/19at 22:15; Start 09/03/19 at 22:00; Stop 09/04/19 at 21:59 Linezolid/Dextrose 300 ml @ 300 mls/hr Q12HR IV Last administered on 09/04/19at 09:11; Start 09/04/19 at 09:00 Daptomycin 450 mg/ Sodium Chloride 50 ml @ 100 mls/hr Q24H IV Last administered on 09/04/19at 10:28; Start 09/04/19 at 09:00 Potassium Chloride 90 meq/ Magnesium Sulfate 20 meq/ Multivitamins 10 ml/Chromium/ Copper/Manganese/ Seleni/Zn 1 ml/ Insulin Human Regular 15 unit/ To anthony Parenteral Nutrition/Amino Acids/Dextrose/ Fat Emulsion Intravenous 1,890 ml @ 78.75 mls/ hr TPN CONT IV ; Start 09/04/19 at 22:00; Stop 09/05/19 at 21:59 Lorazepam (Ativan Inj) 2 mg STK-MED ONCE .ROUTE ; Start 09/04/19 at 14:58; Stop 09/04/19 at 14:58; Status DC Metoprolol Tartrate (Lopressor Vial) 5 mg 1X ONCE IVP Last administered on 09/04/19at 15:31; Start 09/04/19 at 15:15; Stop 09/04/19 at 15:16; Status DC Lorazepam (Ativan Inj) 2 mg 1X ONCE IVP Last administered on 09/04/19at 15:30; Start 09/04/19 at 15:15; Stop 09/04/19 at 15:16; Status DC Active Scripts Active Reported Bisoprolol Fumarate 5 Mg Tablet 10 Mg PO DAILY Vitals/I & O Vital Sign - Last 24 Hours 09/03/19 09/03/19 09/03/19 09/03/19 17:00 17:18 17:52 18:00 Temp 98.8 98.8 Pulse 103 86 Resp 22 27 22 20 B/P (MAP) 167/98 (121) 113/62 (79) Pulse Ox 96 100 99 96 O2 Delivery Nasal Cannula Nasal Cannula Nasal Cannula Nasal Cannula O2 Flow Rate 2.0 2.0 2.0 2.0 09/03/19 09/03/19 09/03/19 09/03/19 19:00 20:00 20:00 21:00 Temp 98.3 98.3 Pulse 80 76 136 Resp 18 18 33 B/P (MAP) 87/45 (59) 79/48 (58) 195/77 (116) Pulse Ox 97 98 88 O2 Delivery Nasal Cannula Nasal Cannula Nasal Cannula Nasal Cannula O2 Flow Rate 2.0 2.0 2.0 2.0 09/03/19 09/03/19 09/03/19 09/03/19 21:46 22:00 22:16 23:00 Pulse 122 98 Resp 33 20 17 20 B/P (MAP) 113/59 (77) 98/55 (69) Pulse Ox 87 99 100 100 O2 Delivery Nasal Cannula Nasal Cannula Nasal Cannula Nasal Cannula O2 Flow Rate 2.0 2.0 2.0 2.0 09/04/19 09/04/19 09/04/19 09/04/19 00:00 00:00 01:00 02:00 Temp 97.7 97.7 Pulse 100 84 90 Resp 22 17 22 B/P (MAP) 97/57 (70) 103/62 (76) 101/56 (71) Pulse Ox 100 100 100 O2 Delivery Nasal Cannula Nasal Cannula Nasal Cannula Nasal Cannula O2 Flow Rate 2.0 2.0 2.0 2.0 09/04/19 09/04/19 09/04/19 09/04/19 02:11 03:00 04:00 04:00 Temp 98.1 98.1 Pulse 100 104 Resp 16 15 23 B/P (MAP) 113/64 (80) 121/67 (85) Pulse Ox 100 100 100 O2 Delivery Nasal Cannula Nasal Cannula Nasal Cannula Nasal Cannula O2 Flow Rate 2.0 2.0 2.0 2.0 09/04/19 09/04/19 09/04/19 09/04/19 05:00 06:00 07:00 07:57 Pulse 96 104 100 Resp 13 21 28 35 B/P (MAP) 112/65 (81) 113/73 (86) 167/87 (113) Pulse Ox 100 100 100 92 O2 Delivery Nasal Cannula Nasal Cannula Nasal Cannula Nasal Cannula O2 Flow Rate 2.0 2.0 2.0 2.0 09/04/19 09/04/19 09/04/19 09/04/19 08:00 08:00 09:00 09:09 Temp 98.4 98.4 Pulse 126 108 Resp 32 24 14 B/P (MAP) 146/69 (94) 109/49 (69) Pulse Ox 100 100 100 O2 Delivery Nasal Cannula Nasal Cannula Nasal Cannula Nasal Cannula O2 Flow Rate 2.0 2.0 2.0 2.0 09/04/19 09/04/19 09/04/19 09/04/19 10:00 11:00 12:00 12:00 Temp 98.6 98.6 Pulse 120 119 102 Resp 20 17 20 B/P (MAP) 119/66 (83) 169/73 (105) 181/92 (121) Pulse Ox 100 100 98 O2 Delivery Nasal Cannula Nasal Cannula Nasal Cannula Nasal Cannula O2 Flow Rate 2.0 2.0 2.0 2.0 09/04/19 09/04/19 09/04/19 09/04/19 13:00 14:00 14:05 14:54 Pulse 111 120 Resp 36 30 38 29 B/P (MAP) 140/65 (90) 204/79 (120) Pulse Ox 94 94 98 100 O2 Delivery Nasal Cannula Nasal Cannula Nasal Cannula Nasal Cannula O2 Flow Rate 2.0 4.0 2.0 2.0 09/04/19 09/04/19 09/04/19 15:00 15:31 15:57 Pulse 148 145 Resp 36 B/P (MAP) 152/70 (97) 124/65 Pulse Ox 99 O2 Delivery Nasal Cannula Nasal Cannula O2 Flow Rate 4.0 2.0 Intake and Output 09/03/19 09/03/19 09/04/19 15:00 23:00 07:00 Intake Total 260 ml 1579.28 ml 1475 ml Output Total 2000 ml 1025 ml 900 ml Balance -1740 ml 554.28 ml 575 ml Hemodynamically unstable?: No Is patient in severe pain?: No Is NPO status required?: Yes JOVANY HARRISON MD September 04, 2019 16:09
[2019-09-04] MEDS: ENOXAPARIN 40 MG/0.4 ML SYRINGE. SQ SCH (17:48)
--- NOTE | 2019-09-04 19:16 | NUR ---
After Pt today at 1400 patient agitated and anxious, HR 160's, SBP 200's, RR 40's. Gave bolus of Precedex and 1mg IV hydromorphone, and I sat with the patient trying to help her calm down. This was nothing different from yesterday after PT however, today the patient was unable to calm down. At 1445 patients HR still 150-160's SBP 180's. I got an order for 2mg Ativan and administered it at 1459. Patients anxiety subsided but HR was still in the 150's. Got a an order for 1x 5mg IV Lopressor at 1531. At 1815 while transferring patient from the chair to the bed patent was slumped over to her left side, left side seemed flaccid, would not raise her arm when asked however patient did not have facial droop. Dr ean jordan gave order to consult Neuro for possible stroke. Talked to Dr Rowan about findings, discussed that I wasn't sure if it was stroke or not because of the Ativan that was given and the lack of facial droop. Dr Rowan gave order for IV Ativan 1-2 mg if needed and to order a CT Brain non contrast in the morning if the patient did not improve. Patient now at 1930 able to move both arms, and talking. will defer to neuro rounding in the morning as get CT or not. Addendum: 09/04/19 at 1944 by DAVON GIRALDO RN Aguirre noted that neuro was on case earlier for seizures. He did give me a free text order for 1x IV 600mg Dilantin if patient experiences any seizures tonight.
[2019-09-04] MEDS ORDERED: [UNRECOGNIZED DRUG - OTHER] IV SCH ×8 (22:00)
[2019-09-04] MEDS ORDERED: DEXTROSE 70% IV SCH ×8 (22:00)
[2019-09-04] MEDS ORDERED: AMINO ACID IV SCH ×8 (22:00)
[2019-09-04] MEDS ORDERED: TOTAL PARENTERAL NUTRITION IV SCH ×8 (22:00)
[2019-09-05] VITALS (22 sets, daily range): BP systolic 84–188; BP diastolic 48–103
[2019-09-05] MEDS: DEXMEDETOMIDINE 400 MCG in IV NORMAL SALINE 100ML 96 ML IV PRN ×4 (05:51→22:21)
[2019-09-05] MEDS: MEROPENEM 1 GM in IV NORMAL SALINE 100ML 100 ML IV SCH ×3 (05:51→22:17)
[2019-09-05] MEDS: INSULIN LISPRO 300 UNITS/3 ML VIAL. SQ SCH ×3 (06:00→17:05)
[2019-09-05 06:21] LABS: CALCIUM 9.3 mg/dL (8.5-10.1); CREATININE 0.6 mg/dL (0.6-1.0); GFR 106.3; PHOSPHORUS 4.3 mg/dL (2.6-4.7); POTASSIUM 4.8 mmol/L (3.5-5.1)
[2019-09-05] MEDS: HYDROmorphone 2 MG/ML VIAL IVP PRN (06:25)
--- NOTE | 2019-09-05 06:36 | RAD ---
AP portable chest radiograph 09/05/2019 Clinical History: Respiratory failure. An AP erect portable digital radiograph of the chest was obtained. Comparison study is dated 08/30/2019. The tracheostomy tube and right arm PICC are unchanged in position. The NG tube has been removed. The cardiac and mediastinal silhouettes are within normal limits in size and configuration. There are small bilateral pleural effusions, left greater than right. Bilateral perihilar infiltrates are seen essentially unchanged. No pneumothorax is noted. The osseous structures are unchanged. Impression: Bilateral perihilar infiltrates with small bilateral pleural effusions, left greater than right. Electronically signed by: Enrique Pavon MD (09/05/2019 6:33 AM) [id number]
[2019-09-05 06:40] LABS: BASO % 0 % (0-3); EOS # 0.1 x10^3/uL (0.0-0.7); EOS % 1 % (0-3); HEMATOCRIT 24.9 % (36.0-47.0); HEMOGLOBIN 7.9 g/dL (12.0-15.5); LYMPH # 2.9 x10^3/uL (1.0-4.8); LYMPH % 21 % (24-48); MEAN CORPUSCULAR HEMOGLOBIN 28 pg (25-35); MEAN CORPUSCULAR HGB CONC 32 g/dL (31-37); MEAN CORPUSCULAR VOLUME 89 fL (79-100); MONO # 0.8 x10^3/uL (0.0-1.1); MONO % 6 % (0-9); NEUT % 72 % (31-73); PLATELET COUNT 486 x10^3/uL (140-400); RED BLOOD COUNT 2.81 x10^6/uL (3.50-5.40); RED CELL DISTRIBUTION WIDTH 18.1 % (11.5-14.5); WHITE BLOOD COUNT 13.8 x10^3/uL (4.0-11.0)
--- NOTE | 2019-09-05 06:40 | NUR ---
during 0600 rounds, NG is out of pt's nose and seen hooked around her thumb and gastric drainage on her gown. pt states, "I don't know how that happened." pt requesting pain medication and anxiety medication before we attempt to replace NG, "I'm going to need something. I don't think I can do it." Dilaudid given per PRN order, bolus of Precedex also given per pt request. first attempt at NG replacement, tube seen coiled in her mouth. second attempt successful, air bolus injected and auscultated with assistance from REY Zelaya. stat KUB ordered to check placement. will pass on in report, will continue to closely monitor.
--- NOTE | 2019-09-05 07:18 | RAD ---
KUB INDICATION: NG tube placement. COMPARISON: None. TECHNIQUE: Supine view of the abdomen was obtained. FINDINGS: Nonobstructive bowel gas pattern. No free air on this limited supine image. Enteric tube terminates in the stomach. Right lower quadrant surgical drains. No acute osseous abnormality. IMPRESSION: Enteric tube terminates in the stomach. Electronically signed by: Bry Michel MD (09/05/2019 7:15 AM) [id number]
[2019-09-05] MEDS: PANTOPRAZOLE IV PUSH 40 MG VIAL. IVP SCH (08:07)
[2019-09-05] MEDS: BUMETANIDE 1 MG/4 ML VIAL. IV SCH (08:07)
[2019-09-05] MEDS: POLYVINYL ALCOHOL 1.4% OPHTH SOLUTION 15ML BOTTLE. OU PRN (08:08)
[2019-09-05] MEDS: DAPTOmycin (GENERIC) IVPB 450 MG in IV NORMAL SALINE 50ML 50 ML IV SCH (08:08)
--- NOTE | 2019-09-05 09:06 | PDOC ---
Infectious Disease Note Subjective: Subjective Pt resting quietly d/w rn no new issues off vent, trach o2 Vital Signs: Vital Signs Vital Signs Date Time Temp Pulse Resp B/P (MAP) Pulse Ox O2 Delivery O2 Flow Rate FiO2 09/05/19 08:18 Nasal Cannula 3.0 09/05/19 08:00 93 16 95/48 (64) 100 09/05/19 07:00 98.4 98.4 Physical Exam: PHYSICAL EXAM GENERAL: Semi-sedated ,comfortable HEENT: oral cavity dry, NGT NECK: Trach with speaking valve LUNGS: no rhonchi HEART: S1, S2, regular ABDOMEN: mod Distended, hypoactive BS, tender, + drains x 3 : Lind (08/01) EXTREMITIES: Generalized edema, improving, no cyanosis, SCDs bilaterally SKIN: Warm and dry. No generalized rash. PRESSURE CONTROLLER: Very weak PICC(08/17) clean Medications: Inpatient Meds: Current Medications Medications (Trade) Dose Ordered Sig/Yvon Start Time Stop Time Status Last Admin Dose Admin Acetaminophen (Tylenol Supp) 650 mg PRN Q6HRS PRN 07/12/19 10:30 08/23/19 09:12 650 MG Acetaminophen (Tylenol) 650 mg PRN Q6HRS PRN 07/09/19 03:36 08/31/19 10:25 DC 08/04/19 19:56 650 MG Albumin Human 200 ml @ 200 mls/hr 1X PRN PRN 08/09/19 08:00 08/09/19 13:59 DC 08/09/19 08:40 200 MLS/HR Albuterol Sulfate (Ventolin Neb Soln) 2.5 mg 1X ONCE 07/05/19 22:30 07/05/19 22:31 DC 07/06/19 00:56 2.5 MG Alteplase, Recombinant (Cathflo For Central Catheter Clearance) 1 mg 1X ONCE 08/12/19 10:45 08/12/19 10:46 DC 08/12/19 11:44 1 MG Amino Acids/ Glycerin/ Electrolytes 1,000 ml @ 75 mls/hr [id number] 08/08/19 21:15 UNV Artificial Tears (Artificial Tears) 1 drop PRN Q15MIN PRN 08/17/19 05:30 09/05/19 08:08 1 DROP Atenolol (Tenormin) 100 mg DAILY 07/05/19 09:00 07/04/19 20:08 DC Atropine Sulfate (ATROPINE 0.5mg SYRINGE) 0.5 mg PRN Q5MIN PRN 07/21/19 08:15 Benzocaine (Hurricaine One) 1 spray 1X ONCE 07/08/19 14:30 07/08/19 14:31 DC 07/08/19 16:38 1 SPRAY Bisacodyl (Dulcolax Supp) 10 mg STK-MED ONCE 08/15/19 10:59 08/15/19 10:59 DC Bumetanide (Bumex) 2 mg DAILY 08/26/19 10:00 09/05/19 08:07 2 MG Bupivacaine HCl/ Epinephrine Bitart (Sensorcain-Epi 0.5%-1:[id number] Mpf) 30 ml STK-MED ONCE 08/15/19 10:58 08/15/19 10:58 DC 08/15/19 12:01 7 ML Calcium Carbonate/ Glycine (Tums) 500 mg PRN [id number] PRN 07/06/19 17:45 08/31/19 10:25 DC Calcium Chloride 1000 mg/Sodium Chloride 110 ml @ 220 mls/hr 1X ONCE 07/05/19 22:30 07/05/19 22:59 DC 07/05/19 22:11 220 MLS/HR Calcium Chloride 3000 mg/Sodium Chloride 1,030 ml @ 50 mls/hr [id number] 07/07/19 08:00 07/09/19 15:23 DC 07/09/19 02:17 50 MLS/HR Calcium Gluconate (Calcium Gluconate) 2,000 mg 1X ONCE 07/07/19 02:15 07/07/19 02:16 DC 07/07/19 02:19 2,000 MG Calcium Gluconate 1000 mg/Sodium Chloride 110 ml @ 220 mls/hr 1X ONCE 07/06/19 03:30 07/06/19 03:59 DC 07/06/19 03:21 220 MLS/HR Calcium Gluconate 2000 mg/Sodium Chloride 120 ml @ 220 mls/hr 1X ONCE 07/06/19 07:30 07/06/19 08:02 DC 07/06/19 09:05 220 MLS/HR Cefepime HCl (Maxipime) 2 gm Q12HR 07/13/19 09:00 07/27/19 09:58 DC 07/26/19 20:56 2 GM Cellulose (Surgicel Fibrillar 1x2) 1 each STK-MED ONCE 07/25/19 11:00 07/25/19 11:01 DC Cellulose (Surgicel Hemostat 2x14) 1 each STK-MED ONCE 08/15/19 10:58 08/15/19 10:59 DC Cellulose (Surgicel Hemostat 4x8) 1 each STK-MED ONCE 08/15/19 10:58 08/15/19 10:59 DC Cyclobenzaprine HCl (Flexeril) 10 mg PRN Q6HRS PRN 08/18/19 10:45 Daptomycin 430 mg/ Sodium Chloride 50 ml @ 100 mls/hr Q24H 08/13/19 13:00 08/18/19 20:58 DC 08/18/19 13:00 100 MLS/HR Daptomycin 450 mg/ Sodium Chloride 50 ml @ 100 mls/hr Q24H 09/04/19 09:00 09/05/19 08:08 100 MLS/HR Daptomycin 485 mg/ Sodium Chloride 50 ml @ 100 mls/hr Q24H 08/22/19 11:00 08/30/19 07:44 DC 08/29/19 13:10 100 MLS/HR Daptomycin 500 mg/ Sodium Chloride 50 ml @ 100 mls/hr Q48H 07/13/19 08:30 07/29/19 10:07 DC 07/29/19 09:57 100 MLS/HR Dexamethasone Sodium Phosphate (Decadron) 4 mg STK-MED ONCE 08/15/19 10:56 08/15/19 10:57 DC Dexmedetomidine HCl 400 mcg/ Sodium Chloride 100 ml @ 0 mls/hr CONT PRN 07/21/19 08:15 09/05/19 05:51 16.1 MLS/HR Dextrose (Dextrose 50%-Water Syringe) 12.5 gm PRN Q15MIN PRN 07/04/19 09:30 Digoxin (Lanoxin) 125 mcg 1X ONCE 07/07/19 18:00 07/07/19 18:01 DC 07/07/19 17:10 125 MCG Diphenhydramine HCl (Benadryl) 25 mg 1X PRN PRN 08/12/19 15:45 08/13/19 15:44 DC Duloxetine HCl (Cymbalta) 30 mg DAILY 08/28/19 14:00 08/31/19 10:25 DC 08/29/19 09:48 30 MG Enoxaparin Sodium (Lovenox 100mg Syringe) 100 mg Q12HR 08/09/19 21:00 UNV Enoxaparin Sodium (Lovenox 40mg Syringe) 40 mg Q24H 09/04/19 17:00 09/04/19 17:48 40 MG Etomidate (Amidate) 8 mg 1X ONCE 07/11/19 08:30 07/11/19 08:31 DC 07/11/19 08:33 8 MG Fentanyl Citrate (Fentanyl 2ml Vial) 100 mcg STK-MED ONCE 08/15/19 10:56 08/15/19 10:57 DC Fentanyl Citrate (Fentanyl 5ml Vial) 250 mcg 1X ONCE 08/26/19 09:15 08/26/19 09:16 DC 08/26/19 09:30 50 MCG Furosemide (Lasix) 40 mg 1X ONCE 08/01/19 14:30 08/01/19 14:31 DC 08/01/19 14:39 40 MG Haloperidol Lactate (Haldol Inj) 3 mg 1X ONCE 08/22/19 14:30 08/22/19 14:31 DC 08/22/19 14:37 3 MG Heparin Sodium (Porcine) (Hep Lock Adult) 500 unit STK-MED ONCE 07/26/19 09:29 07/26/19 09:30 DC Heparin Sodium (Porcine) (Heparin Sodium) 5,000 unit Q12HR 08/15/19 21:00 08/25/19 09:59 DC 08/24/19 20:57 5,000 UNIT Heparin Sodium (Porcine) 1000 unit/Sodium Chloride 1,001 ml @ 1,001 mls/hr 1X ONCE 08/15/19 12:00 08/15/19 12:59 DC Hydromorphone HCl (Dilaudid Standard PRESSURE CONTROLLER) 12 mg STK-MED ONCE 08/19/19 15:50 08/30/19 11:24 DC Hydromorphone HCl (Dilaudid) 1 mg PRN Q4HRS PRN 08/22/19 19:00 09/05/19 06:25 1 MG Info (CONTRAST GIVEN -- Rx MONITORING) 1 each PRN DAILY PRN 07/18/19 11:45 07/20/19 11:44 DC Info (Icu Electrolyte Protocol) 1 ea CONT PRN PRN 07/17/19 13:15 Info (PHARMACY MONITORING -- do not chart) 1 each PRN DAILY PRN 08/12/19 15:45 Info (Tpn Per Pharmacy) 1 each PRN DAILY PRN 07/06/19 12:30 UNV Insulin Human Lispro (HumaLOG) 0-9 UNITS Q6HRS 07/04/19 09:30 09/05/19 06:00 4 UNITS Insulin Human Regular (HumuLIN R VIAL) 5 unit 1X ONCE 07/05/19 22:30 07/05/19 22:31 DC 07/05/19 22:14 5 UNIT Iohexol (Omnipaque 240 Mg/ml) 30 ml 1X ONCE 07/18/19 11:30 07/18/19 11:33 DC 07/18/19 11:30 30 ML Iohexol (Omnipaque 300 Mg/ml) 50 ml STK-MED ONCE 08/15/19 10:58 08/15/19 10:59 DC Iohexol (Omnipaque 350 Mg/ml) 90 ml 1X ONCE 07/04/19 03:30 07/04/19 03:31 DC 07/04/19 03:25 90 ML Ketorolac Tromethamine (Toradol 30mg Vial) 30 mg 1X ONCE 07/04/19 03:00 07/04/19 03:01 DC 07/04/19 02:54 30 MG Lidocaine HCl (Buffered Lidocaine 1%) 6 ml 1X ONCE 08/30/19 14:15 08/30/19 14:16 DC 08/30/19 14:15 3 ML Lidocaine HCl (Glydo (Lidocaine) Jelly) 1 ramu 1X ONCE 07/08/19 14:30 07/08/19 14:31 DC 07/08/19 16:38 1 RAMU Lidocaine HCl (Xylocaine-Mpf 1% 2ml Vial) 2 ml PRN 1X PRN 08/15/19 07:00 08/16/19 06:59 DC Linezolid/Dextrose 300 ml @ 300 mls/hr Q12HR 09/04/19 09:00 09/05/19 08:08 300 MLS/HR Lorazepam (Ativan Inj) 2 mg PRN Q4HRS PRN 09/04/19 19:15 Magnesium Sulfate 50 ml @ 25 mls/hr 1X ONCE 08/28/19 09:00 08/28/19 10:59 DC 08/28/19 10:44 25 MLS/HR Meropenem 1 gm/ Sodium Chloride 100 ml @ 200 mls/hr Q8HRS 08/16/19 14:00 09/05/19 05:51 200 MLS/HR Meropenem 500 mg/ Sodium Chloride 50 ml @ 100 mls/hr Q12H 07/27/19 10:00 08/16/19 12:37 DC 08/16/19 10:45 100 MLS/HR Metoclopramide HCl (Reglan Vial) 10 mg PRN Q3HRS PRN 08/27/19 16:45 09/01/19 04:25 10 MG Metoprolol Tartrate (Lopressor Vial) 5 mg 1X ONCE 09/04/19 15:15 09/04/19 15:16 DC 09/04/19 15:31 5 MG Metronidazole 100 ml @ 100 mls/hr Q8HRS 08/02/19 10:00 08/09/19 08:10 DC 08/09/19 06:04 100 MLS/HR Micafungin Sodium 100 mg/Dextrose 100 ml @ 100 mls/hr Q24H 08/22/19 11:00 09/04/19 11:07 100 MLS/HR Midazolam HCl (Versed) 5 mg 1X ONCE 08/26/19 09:15 08/26/19 09:16 DC 08/26/19 09:30 1 MG Midazolam HCl 100 mg/Sodium Chloride 100 ml @ 7 mls/hr CONT PRN 07/16/19 16:00 07/27/19 15:35 7 MLS/HR Midazolam HCl 50 mg/Sodium Chloride 50 ml @ 0 mls/hr CONT PRN 07/11/19 08:15 07/16/19 15:59 DC 07/14/19 22:39 7 MLS/HR Morphine Sulfate (Morphine Sulfate) 2 mg PRN Q2HR PRN 07/04/19 05:00 07/05/19 14:15 DC 07/05/19 12:26 2 MG Multi-Ingred Cream/Lotion/Oil/ Oint (Artificial Tears Eye Ointment) 1 ramu PRN Q1HR PRN 07/13/19 17:30 08/01/19 08:19 1 RAMU Naloxone HCl (Narcan) 0.4 mg PRN Q2MIN PRN 08/15/19 14:30 UNV Norepinephrine Bitartrate 8 mg/ Dextrose 258 ml @ 17.299 mls/ hr CONT PRN 07/05/19 15:30 08/05/19 09:19 DC 08/02/19 12:48 20.9 MLS/HR Ondansetron HCl (Zofran) 4 mg STK-MED ONCE 08/15/19 10:56 08/15/19 10:57 DC Pantoprazole Sodium (PROTONIX VIAL for IV PUSH) 40 mg DAILYAC 07/04/19 11:30 09/05/19 08:07 40 MG Phenylephrine HCl (PHENYLEPHRINE in 0.9% NACL PF) 1 mg STK-MED ONCE 08/15/19 12:34 08/15/19 12:34 DC Piperacillin Sod/ Tazobactam Sod 4.5 gm/Sodium Chloride 100 ml @ 200 mls/hr 1X ONCE 07/04/19 06:00 07/04/19 06:29 DC 07/04/19 05:44 200 MLS/HR Potassium Chloride 15 meq/ Bicarbonate Dialysis Soln w/ out KCl 5,007.5 ml @ 1,000 mls/ hr Q5H1M 07/17/19 20:00 07/21/19 13:08 DC 07/20/19 18:14 1,000 MLS/HR Potassium Chloride 20 meq/ Bicarbonate Dialysis Soln w/ out KCl 5,010 ml @ 1,000 mls/hr Q5H1M 07/13/19 16:00 07/17/19 19:59 DC 07/17/19 14:54 1,000 MLS/HR Potassium Chloride 75 meq/ Magnesium Sulfate 15 meq/ Multivitamins 10 ml/Chromium/ Copper/Manganese/ Seleni/Zn 0.5 ml/ Insulin Human Regular 15 unit/ Total Parenteral Nutrition/Amino Acids/Dextrose/ Fat Emulsion Intravenous 1,920 ml @ 80 mls/hr TPN CONT 08/27/19 22:00 08/28/19 21:59 DC 08/27/19 22:41 80 MLS/HR Potassium Chloride 75 meq/ Magnesium Sulfate 15 meq/Calcium Gluconate 8 meq/ Multivitamins 10 ml/Chromium/ Copper/Manganese/ Seleni/Zn 0.5 ml/ Insulin Human Regular 15 unit/ Total Parenteral Nutrition/Amino Acids/Dextrose/ Fat Emulsion Intravenous 1,920 ml @ 80 mls/hr TPN CONT 08/25/19 22:00 08/26/19 21:59 DC 08/25/19 22:28 80 MLS/HR Potassium Chloride 75 meq/ Magnesium Sulfate 15 meq/Calcium Gluconate 8 meq/ Multivitamins 10 ml/Chromium/ Copper/Manganese/ Seleni/Zn 0.5 ml/ Insulin Human Regular 20 unit/ Total Parenteral Nutrition/Amino Acids/Dextrose/ Fat Emulsion Intravenous 1,920 ml @ 80 mls/hr TPN CONT 08/24/19 22:00 08/25/19 21:59 DC 08/24/19 22:00 80 MLS/HR Potassium Chloride 75 meq/ Magnesium Sulfate 15 meq/Calcium Gluconate 8 meq/ Multivitamins 10 ml/Chromium/ Copper/Manganese/ Seleni/Zn 0.5 ml/ Insulin Human Regular 25 unit/ Total Parenteral Nutrition/Amino Acids/Dextrose/ Fat Emulsion Intravenous 1,920 ml @ 80 mls/hr TPN CONT 08/22/19 22:00 08/23/19 21:59 DC 08/22/19 23:08 80 MLS/HR Potassium Chloride 75 meq/ Magnesium Sulfate 20 meq/Calcium Gluconate 10 meq/ Multivitamins 10 ml/Chromium/ Copper/Manganese/ Seleni/Zn 0.5 ml/ Insulin Human Regular 25 unit/ Total Parenteral Nutrition/Amino Acids/Dextrose/ Fat Emulsion Intravenous 1,920 ml @ 80 mls/hr TPN CONT 08/21/19 22:00 08/22/19 21:59 DC 08/21/19 22:04 80 MLS/HR Potassium Chloride 75 meq/ Magnesium Sulfate 20 meq/Calcium Gluconate 10 meq/ Multivitamins 10 ml/Chromium/ Copper/Manganese/ Seleni/Zn 0.5 ml/ Insulin Human Regular 30 unit/ Total Parenteral Nutrition/Amino Acids/Dextrose/ Fat Emulsion Intravenous 1,920 ml @ 80 mls/hr TPN CONT 08/20/19 22:00 08/21/19 22:00 DC 08/20/19 21:51 80 MLS/HR Potassium Chloride 80 meq/ Magnesium Sulfate 20 meq/ Multivitamins 10 ml/Chromium/ Copper/Manganese/ Seleni/Zn 0.5 ml/ Insulin Human Regular 15 unit/ Total Parenteral Nutrition/Amino Acids/Dextrose/ Fat Emulsion Intravenous 1,920 ml @ 80 mls/hr TPN CONT 08/30/19 22:00 08/31/19 21:59 DC 08/30/19 21:40 80 MLS/HR Potassium Chloride 80 meq/ Magnesium Sulfate 20 meq/ Multivitamins 10 ml/Chromium/ Copper/Manganese/ Seleni/Zn 1 ml/ Insulin Human Regular 15 unit/ Total Parenteral Nutrition/Amino Acids/Dextrose/ Fat Emulsion Intravenous 1,920 ml @ 80 mls/hr TPN CONT 08/31/19 22:00 09/01/19 21:59 DC 08/31/19 22:04 80 MLS/HR Potassium Chloride 90 meq/ Magnesium Sulfate 20 meq/ Multivitamins 10 ml/Chromium/ Copper/Manganese/ Seleni/Zn 1 ml/ Insulin Human Regular 15 unit/ Total Parenteral Nutrition/Amino Acids/Dextrose/ Fat Emulsion Intravenous 1,890 ml @ 78.75 mls/ hr TPN CONT 09/04/19 22:00 09/05/19 21:59 09/04/19 21:34 78.75 MLS/HR Potassium Chloride/Water 100 ml @ 100 mls/hr 1X ONCE 09/01/19 11:00 09/01/19 11:59 DC 09/01/19 11:34 100 MLS/HR Potassium Phosphate 20 mmol/ Sodium Chloride 106.6667 ml @ 51.667 m... 1X ONCE 07/13/19 13:00 07/13/19 15:03 DC 07/13/19 12:51 51.667 MLS/HR Potassium Acetate 30 meq/Magnesium Sulfate 20 meq/ Calcium Gluconate 10 meq/ Multivitamins 10 ml/Chromium/ Copper/Manganese/ Seleni/Zn 0.5 ml/ Insulin Human Regular 30 unit/ Potassium Chloride 30 meq/ Total Parenteral Nutrition/Amino Acids/Dextrose/ Fat Emulsion Intravenous 1,920 ml @ 80 mls/hr TPN CONT 08/19/19 22:00 08/20/19 21:59 DC 08/19/19 22:34 80 MLS/HR Potassium Acetate 55 meq/Magnesium Sulfate 20 meq/ Calcium Gluconate 10 meq/ Multivitamins 10 ml/Chromium/ Copper/Manganese/ Seleni/Zn 0.5 ml/ Insulin Human Regular 30 unit/ Total Parenteral Nutrition/Amino Acids/Dextrose/ Fat Emulsion Intravenous 1,920 ml @ 80 mls/hr TPN CONT 08/18/19 22:00 08/19/19 21:59 DC 08/19/19 01:00 80 MLS/HR Potassium Acetate 55 meq/Magnesium Sulfate 20 meq/ Calcium Gluconate 10 meq/ Multivitamins 10 ml/Chromium/ Copper/Manganese/ Seleni/Zn 0.5 ml/ Insulin Human Regular 35 unit/ Total Parenteral Nutrition/Amino Acids/Dextrose/ Fat Emulsion Intravenous 1,920 ml @ 80 mls/hr TPN CONT 08/16/19 22:00 08/17/19 21:59 DC 08/16/19 22:02 80 MLS/HR Potassium Acetate 65 meq/Magnesium Sulfate 20 meq/ Calcium Gluconate 10 meq/ Multivitamins 10 ml/Chromium/ Copper/Manganese/ Seleni/Zn 0.5 ml/ Insulin Human Regular 30 unit/ Total Parenteral Nutrition/Amino Acids/Dextrose/ Fat Emulsion Intravenous 1,920 ml @ 80 mls/hr TPN CONT 08/17/19 22:00 08/18/19 21:59 DC 08/17/19 22:22 80 MLS/HR Prochlorperazine Edisylate (Compazine) 5 mg PACU PRN PRN 08/15/19 07:00 08/16/19 06:59 DC Propofol 20 ml @ As Directed STK-MED ONCE 08/15/19 12:26 08/15/19 12:27 DC Ringer's Solution 1,000 ml @ 30 mls/hr Q24H 08/15/19 07:00 08/15/19 18:59 DC Rocuronium [place] (Zemuron) 50 mg STK-MED ONCE 08/15/19 10:56 08/15/19 10:57 DC Sevoflurane (Ultane) 60 ml STK-MED ONCE 08/15/19 12:26 08/15/19 12:27 DC Sodium Bicarbonate 50 meq/Sodium Chloride 1,050 ml @ 75 mls/hr Q14H 07/06/19 07:30 07/11/19 10:28 DC 07/10/19 21:10 75 MLS/HR Sodium Acetate 50 meq/Potassium Acetate 55 meq/ Magnesium Sulfate 20 meq/Calcium Gluconate 10 meq/ Multivitamins 10 ml/Chromium/ Copper/Manganese/ Seleni/Zn 0.5 ml/ Insulin Human Regular 35 unit/ Total Parenteral Nutrition/Amino Acids/Dextrose/ Fat Emulsion Intravenous 1,800 ml @ 75 mls/hr TPN CONT 08/13/19 22:00 08/14/19 21:59 DC 08/13/19 22:03 75 MLS/HR Sodium Chloride 1,000 ml @ 25 mls/hr Q24H 08/15/19 14:30 UNV Sodium Chloride (Normal Saline Flush) 3 ml QSHIFT PRN 08/15/19 13:45 Sodium Chloride 90 meq/Calcium Gluconate 10 meq/ Multivitamins 10 ml/Chromium/ Copper/Manganese/ Seleni/Zn 0.5 ml/ Total Parenteral Nutrition/Amino Acids/Dextrose/ Fat Emulsion Intravenous 1,512 ml @ 63 mls/hr TPN CONT 07/06/19 22:00 07/07/19 21:59 DC 07/06/19 22:06 63 MLS/HR Sodium Chloride 90 meq/Calcium Gluconate 10 meq/ Multivitamins 10 ml/Chromium/ Copper/Manganese/ Seleni/Zn 1 ml/ Total Parenteral Nutrition/Amino Acids/Dextrose/ Fat Emulsion Intravenous 55.005 ml @ 2.292 mls/hr TPN CONT 07/06/19 22:00 07/06/19 12:33 DC Sodium Chloride 90 meq/Magnesium Sulfate 10 meq/ Calcium Gluconate 20 meq/ Multivitamins 10 ml/Chromium/ Copper/Manganese/ Seleni/Zn 0.5 ml/ Total Parenteral Nutrition/Amino Acids/Dextrose/ Fat Emulsion Intravenous 1,512 ml @ 63 mls/hr TPN CONT 07/07/19 22:00 07/08/19 21:59 DC 07/07/19 22:25 63 MLS/HR Sodium Chloride 90 meq/Magnesium Sulfate 12 meq/ Calcium Gluconate 15 meq/ Multivitamins 10 ml/Chromium/ Copper/Manganese/ Seleni/Zn 0.5 ml/ Insulin Human Regular 25 unit/ Total Parenteral Nutrition/Amino Acids/Dextrose/ Fat Emulsion Intravenous 1,400 ml @ 58.333 mls/ hr TPN CONT 07/27/19 22:00 07/28/19 21:59 DC 07/27/19 21:41 58.333 MLS/HR Sodium Chloride 90 meq/Potassium Chloride 15 meq/ Magnesium Sulfate 12 meq/Calcium Gluconate 15 meq/ Multivitamins 10 ml/Chromium/ Copper/Manganese/ Seleni/Zn 0.5 ml/ Insulin Human Regular 25 unit/ Total Parenteral Nutrition/Amino Acids/Dextrose/ Fat Emulsion Intravenous 1,400 ml @ 58.333 mls/ hr TPN CONT 07/26/19 22:00 07/27/19 21:59 DC 07/26/19 22:13 58.333 MLS/HR Sodium Chloride 90 meq/Potassium Chloride 15 meq/ Potassium Phosphate 10 mmol/ Magnesium Sulfate 8 meq/Calcium Gluconate 15 meq/ Multivitamins 10 ml/Chromium/ Copper/Manganese/ Seleni/Zn 0.5 ml/ Insulin Human Regular 25 unit/ Total Parenteral Nutrition/Amino Acids/Dextrose/ Fat Emulsion Intravenous 1,400 ml @ 58.333 mls/ hr TPN CONT 07/24/19 22:00 07/25/19 21:59 DC 07/24/19 21:20 58.333 MLS/HR Sodium Chloride 90 meq/Potassium Chloride 15 meq/ Potassium Phosphate 10 mmol/ Magnesium Sulfate 10 meq/Calcium Gluconate 20 meq/ Multivitamins 10 ml/Chromium/ Copper/Manganese/ Seleni/Zn 0.5 ml/ Total Parenteral Nutrition/Amino Acids/Dextrose/ Fat Emulsion Intravenous 1,400 ml @ 58.333 mls/ hr TPN CONT 07/11/19 22:00 07/12/19 21:59 DC 07/11/19 21:42 58.333 MLS/HR Sodium Chloride 90 meq/Potassium Chloride 15 meq/ Potassium Phosphate 10 mmol/ Magnesium Sulfate 12 meq/Calcium Gluconate 15 meq/ Multivitamins 10 ml/Chromium/ Copper/Manganese/ Seleni/Zn 0.5 ml/ Insulin Human Regular 25 unit/ Total Parenteral Nutrition/Amino Acids/Dextrose/ Fat Emulsion Intravenous 1,400 ml @ 58.333 mls/ hr TPN CONT 07/25/19 22:00 07/26/19 21:59 DC 07/25/19 22:24 58.333 MLS/HR Sodium Chloride 90 meq/Potassium Chloride 15 meq/ Potassium Phosphate 15 mmol/ Magnesium Sulfate 10 meq/Calcium Gluconate 15 meq/ Multivitamins 10 ml/Chromium/ Copper/Manganese/ Seleni/Zn 0.5 ml/ Total Parenteral Nutrition/Amino Acids/Dextrose/ Fat Emulsion Intravenous 1,400 ml @ 58.333 mls/ hr TPN CONT 07/12/19 22:00 07/13/19 21:59 DC 07/12/19 22:17 58.333 MLS/HR Sodium Chloride 90 meq/Potassium Chloride 15 meq/ Potassium Phosphate 15 mmol/ Magnesium Sulfate 10 meq/Calcium Gluconate 20 meq/ Multivitamins 10 ml/Chromium/ Copper/Manganese/ Seleni/Zn 0.5 ml/ Total Parenteral Nutrition/Amino Acids/Dextrose/ Fat Emulsion Intravenous 1,200 ml @ 50 mls/hr TPN CONT 07/10/19 22:00 07/10/19 14:17 DC Sodium Chloride 90 meq/Potassium Chloride 15 meq/ Potassium Phosphate 18 mmol/ Magnesium Sulfate 8 meq/Calcium Gluconate 15 meq/ Multivitamins 10 ml/Chromium/ Copper/Manganese/ Seleni/Zn 0.5 ml/ Insulin Human Regular 10 unit/ Total Parenteral Nutrition/Amino Acids/Dextrose/ Fat Emulsion Intravenous 1,400 ml @ 58.333 mls/ hr TPN CONT 07/15/19 22:00 07/16/19 21:59 DC 07/15/19 21:43 58.333 MLS/HR Sodium Chloride 90 meq/Potassium Chloride 15 meq/ Potassium Phosphate 18 mmol/ Magnesium Sulfate 8 meq/Calcium Gluconate 15 meq/ Multivitamins 10 ml/Chromium/ Copper/Manganese/ Seleni/Zn 0.5 ml/ Insulin Human Regular 15 unit/ Total Parenteral Nutrition/Amino Acids/Dextrose/ Fat Emulsion Intravenous 1,400 ml @ 58.333 mls/ hr TPN CONT 07/18/19 22:00 07/19/19 21:59 DC 07/18/19 21:47 58.333 MLS/HR Sodium Chloride 90 meq/Potassium Chloride 15 meq/ Potassium Phosphate 18 mmol/ Magnesium Sulfate 8 meq/Calcium Gluconate 15 meq/ Multivitamins 10 ml/Chromium/ Copper/Manganese/ Seleni/Zn 0.5 ml/ Insulin Human Regular 20 unit/ Total Parenteral Nutrition/Amino Acids/Dextrose/ Fat Emulsion Intravenous 1,400 ml @ 58.333 mls/ hr TPN CONT 07/21/19 22:00 07/22/19 21:59 DC 07/21/19 22:45 58.333 MLS/HR Sodium Chloride 90 meq/Potassium Chloride 15 meq/ Potassium Phosphate 18 mmol/ Magnesium Sulfate 8 meq/Calcium Gluconate 15 meq/ Multivitamins 10 ml/Chromium/ Copper/Manganese/ Seleni/Zn 0.5 ml/ Total Parenteral Nutrition/Amino Acids/Dextrose/ Fat Emulsion Intravenous 1,400 ml @ 58.333 mls/ hr TPN CONT 07/14/19 22:00 07/15/19 21:59 DC 07/14/19 22:00 58.333 MLS/HR Sodium Chloride 90 meq/Potassium Phosphate 15 mmol/ Magnesium Sulfate 12 meq/Calcium Gluconate 15 meq/ Multivitamins 10 ml/Chromium/ Copper/Manganese/ Seleni/Zn 0.5 ml/ Insulin Human Regular 30 unit/ Total Parenteral Nutrition/Amino Acids/Dextrose/ Fat Emulsion Intravenous 1,400 ml @ 58.333 mls/ hr TPN CONT 07/29/19 22:00 07/30/19 21:59 DC 07/29/19 21:49 58.333 MLS/HR Sodium Chloride 90 meq/Potassium Phosphate 15 mmol/ Magnesium Sulfate 12 meq/Calcium Gluconate 15 meq/ Multivitamins 10 ml/Chromium/ Copper/Manganese/ Seleni/Zn 0.5 ml/ Insulin Human Regular 40 unit/ Total Parenteral Nutrition/Amino Acids/Dextrose/ Fat Emulsion Intravenous 1,400 ml @ 58.333 mls/ hr TPN CONT 07/30/19 22:00 07/31/19 21:59 DC 07/30/19 21:21 58.333 MLS/HR Sodium Chloride 90 meq/Potassium Phosphate 19 mmol/ Magnesium Sulfate 12 meq/Calcium Gluconate 15 meq/ Multivitamins 10 ml/Chromium/ Copper/Manganese/ Seleni/Zn 0.5 ml/ Insulin Human Regular 40 unit/ Total Parenteral Nutrition/Amino Acids/Dextrose/ Fat Emulsion Intravenous 1,400 ml @ 58.333 mls/ hr TPN CONT 07/31/19 22:00 08/01/19 21:59 DC 07/31/19 21:54 58.333 MLS/HR Sodium Chloride 90 meq/Potassium Phosphate 5 mmol/ Magnesium Sulfate 12 meq/Calcium Gluconate 15 meq/ Multivitamins 10 ml/Chromium/ Copper/Manganese/ Seleni/Zn 0.5 ml/ Insulin Human Regular 30 unit/ Total Parenteral Nutrition/Amino Acids/Dextrose/ Fat Emulsion Intravenous 1,400 ml @ 58.333 mls/ hr TPN CONT 07/28/19 22:00 07/29/19 21:59 DC 07/28/19 22:08 58.333 MLS/HR Sodium Chloride 100 meq/Potassium Chloride 40 meq/ Magnesium Sulfate 15 meq/Calcium Gluconate 15 meq/ Multivitamins 10 ml/Chromium/ Copper/Manganese/ Seleni/Zn 0.5 ml/ Insulin Human Regular 35 unit/ Total Parenteral Nutrition/Amino Acids/Dextrose/ Fat Emulsion Intravenous 1,400 ml @ 58.333 mls/ hr TPN CONT 08/07/19 22:00 08/08/19 21:59 DC 08/07/19 22:46 58.333 MLS/HR Sodium Chloride 100 meq/Potassium Chloride 40 meq/ Magnesium Sulfate 20 meq/Calcium Gluconate 10 meq/ Multivitamins 10 ml/Chromium/ Copper/Manganese/ Seleni/Zn 0.5 ml/ Insulin Human Regular 35 unit/ Total Parenteral Nutrition/Amino Acids/Dextrose/ Fat Emulsion Intravenous 1,400 ml @ 58.333 mls/ hr TPN CONT 08/11/19 22:00 08/12/19 21:59 DC 08/12/19 00:06 58.333 MLS/HR Sodium Chloride 100 meq/Potassium Chloride 40 meq/ Magnesium Sulfate 20 meq/Calcium Gluconate 15 meq/ Multivitamins 10 ml/Chromium/ Copper/Manganese/ Seleni/Zn 0.5 ml/ Insulin Human Regular 35 unit/ Total Parenteral Nutrition/Amino Acids/Dextrose/ Fat Emulsion Intravenous 1,400 ml @ 58.333 mls/ hr TPN CONT 08/10/19 22:00 08/11/19 21:59 DC 08/10/19 22:27 58.333 MLS/HR Sodium Chloride 100 meq/Potassium Phosphate 10 mmol/ Magnesium Sulfate 12 meq/Calcium Gluconate 15 meq/ Multivitamins 10 ml/Chromium/ Copper/Manganese/ Seleni/Zn 0.5 ml/ Insulin Human Regular 35 unit/ Potassium Chloride 20 meq/ Total Parenteral Nutrition/Amino Acids/Dextrose/ Fat Emulsion Intravenous 1,400 ml @ 58.333 mls/ hr TPN CONT 08/04/19 22:00 08/05/19 21:59 DC 08/04/19 22:10 58.333 MLS/HR Sodium Chloride 100 meq/Potassium Phosphate 19 mmol/ Magnesium Sulfate 12 meq/Calcium Gluconate 15 meq/ Multivitamins 10 ml/Chromium/ Copper/Manganese/ Seleni/Zn 0.5 ml/ Insulin Human Regular 40 unit/ Potassium Chloride 20 meq/ Total Parenteral Nutrition/Amino Acids/Dextrose/ Fat Emulsion Intravenous 1,400 ml @ 58.333 mls/ hr TPN CONT 08/03/19 22:00 4/16/20 21:59 DC 08/03/19 21:20 58.333 MLS/HR Sodium Chloride 100 meq/Potassium Phosphate 5 mmol/ Magnesium Sulfate 12 meq/Calcium Gluconate 15 meq/ Multivitamins 10 ml/Chromium/ Copper/Manganese/ Seleni/Zn 0.5 ml/ Insulin Human Regular 35 unit/ Potassium Chloride 20 meq/ Total Parenteral Nutrition/Amino Acids/Dextrose/ Fat Emulsion Intravenous 1,400 ml @ 58.333 mls/ hr TPN CONT 08/05/19 22:00 08/06/19 21:59 DC 08/05/19 22:59 58.333 MLS/HR Succinylcholine Chloride (Anectine) 120 mg 1X ONCE 07/11/19 08:30 07/11/19 08:31 DC 07/11/19 08:34 120 MG Vecuronium [place] (Norcuron Bolus) 6 mg PRN Q6HRS PRN 08/25/19 19:15 08/25/19 19:35 DC Labs: Lab Laboratory Tests Test 09/04/19 12:00 09/04/19 17:46 09/04/19 23:47 09/05/19 05:56 Glucose (Fingerstick) 225 mg/dL (70-99) 145 mg/dL (70-99) 240 mg/dL (70-99) 162 mg/dL (70-99) Test 09/05/19 06:00 White Blood Count 13.8 x10^3/uL (4.0-11.0) Red Blood Count 2.81 x10^6/uL (3.50-5.40) Hemoglobin 7.9 g/dL (12.0-15.5) Hematocrit 24.9 % (36.0-47.0) Mean Corpuscular Volume 89 fL (79-100) Mean Corpuscular Hemoglobin 28 pg (25-35) Mean Corpuscular Hemoglobin Concent 32 g/dL (31-37) Red Cell Distribution Width 18.1 % (11.5-14.5) Platelet Count 486 x10^3/uL (140-400) Neutrophils (%) (Auto) 72 % (31-73) Lymphocytes (%) (Auto) 21 % (24-48) Monocytes (%) (Auto) 6 % (0-9) Eosinophils (%) (Auto) 1 % (0-3) Basophils (%) (Auto) 0 % (0-3) Neutrophils # (Auto) 10.0 x10^3/uL (1.8-7.7) Lymphocytes # (Auto) 2.9 x10^3/uL (1.0-4.8) Monocytes # (Auto) 0.8 x10^3/uL (0.0-1.1) Eosinophils # (Auto) 0.1 x10^3/uL (0.0-0.7) Basophils # (Auto) 0.0 x10^3/uL (0.0-0.2) Sodium Level 141 mmol/L (136-145) Potassium Level 4.8 mmol/L (3.5-5.1) Chloride Level 99 mmol/L (98-107) Carbon Dioxide Level 42 mmol/L (21-32) Anion Gap 0 (6-14) Blood Urea Nitrogen 26 mg/dL (7-20) Creatinine 0.6 mg/dL (0.6-1.0) Estimated GFR (Cockcroft-Gault) 106.3 Glucose Level 164 mg/dL (70-99) Calcium Level 9.3 mg/dL (8.5-10.1) Phosphorus Level 4.3 mg/dL (2.6-4.7) Magnesium Level 2.0 mg/dL (1.8-2.4) Triglycerides Level 221 mg/dL (0-150) Objective: Assessment: Fever intermittent could be from underlying pancreatitis, pattern improving Acute pancreatitis with persistent necrosis CT a/p 07/27 Increased ascites. 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 Leucocytosis improving JUANA,Hyperkalemia, Metabolic acidosis off dialysis Acute hypoxic resp failure ,bilateral pleural effusion and atelectasis hypocalcemia Prediabetes HTN s/p trach Plan: Plan of Care Zyvox/Dapto 09/03 cont merrem 07/26 Continue micafungin 08/21 f/u cultures Maintain aspiration precaution Supportive care D/w nursing YUNIOR JONES MD September 05, 2019 09:06
--- NOTE | 2019-09-05 10:10 | PDOC ---
PROGRESS NOTES Assessment Problems Medical Problems: (1) Acute pancreatitis Status: Acute (2) Cholelithiasis Status: Acute Respiratory failure. Single seizure on 06/23, no recurrence. Metabolic encephalopathy. Fevers. Metabolic acidosis. Diffuse pulmonary infiltrate. Pleural effusion. Pancreatitis, necrotizing. Gallstone. Leukocytosis. Lymphopenia. Electrolytes imbalances. Hyperglycemia. DM. HTN. HLD. Anemia. Abnormal CXR. Obesity. Ascites and pleural effusion Plan Keppra if she has further seizures. Treat medical diseases. Subjective None Objective Vital Signs Date Time Temp Pulse Resp B/P (MAP) Pulse Ox O2 Delivery O2 Flow Rate FiO2 09/05/19 08:18 Nasal Cannula 3.0 09/05/19 08:00 93 16 95/48 (64) 100 09/05/19 07:00 98.4 98.4 Intake and Output 09/05/19 07:00 Intake Total 3454.23 ml Output Total 4335 ml Balance -880.77 ml IV Total 3454.23 ml Output Urine Total 3855 ml Drainage Total 480 ml PHYSICAL EXAM Sedated. Tracheostomy capped PERRL. EOMI. CN: no focal findings. Muscle tone: normal. Muscle strength: not cooperative DTR: 1+ Plantar reflex: Silent Gait: not examined in bed. Sensory exam: not cooperative Cerebellar: not cooperative Review of Relevant I have reviewed the following items kolby (where applicable) has been applied. Labs Laboratory Tests Test 09/03/19 11:11 09/03/19 17:46 09/04/19 00:41 09/04/19 07:00 Glucose (Fingerstick) 162 mg/dL (70-99) 144 mg/dL (70-99) 177 mg/dL (70-99) White Blood Count 14.2 x10^3/uL (4.0-11.0) Red Blood Count 2.87 x10^6/uL (3.50-5.40) Hemoglobin 8.3 g/dL (12.0-15.5) Hematocrit 25.6 % (36.0-47.0) Mean Corpuscular Volume 89 fL (79-100) Mean Corpuscular Hemoglobin 29 pg (25-35) Mean Corpuscular Hemoglobin Concent 32 g/dL (31-37) Red Cell Distribution Width 18.1 % (11.5-14.5) Platelet Count 497 x10^3/uL (140-400) Neutrophils (%) (Auto) 68 % (31-73) Lymphocytes (%) (Auto) 25 % (24-48) Monocytes (%) (Auto) 6 % (0-9) Eosinophils (%) (Auto) 1 % (0-3) Basophils (%) (Auto) 0 % (0-3) Neutrophils # (Auto) 9.6 x10^3/uL (1.8-7.7) Lymphocytes # (Auto) 3.5 x10^3/uL (1.0-4.8) Monocytes # (Auto) 0.9 x10^3/uL (0.0-1.1) Eosinophils # (Auto) 0.2 x10^3/uL (0.0-0.7) Basophils # (Auto) 0.0 x10^3/uL (0.0-0.2) Sodium Level 140 mmol/L (136-145) Potassium Level 4.5 mmol/L (3.5-5.1) Chloride Level 99 mmol/L (98-107) Carbon Dioxide Level 40 mmol/L (21-32) Anion Gap 1 (6-14) Blood Urea Nitrogen 26 mg/dL (7-20) Creatinine 0.5 mg/dL (0.6-1.0) Estimated GFR (Cockcroft-Gault) 131.1 BUN/Creatinine Ratio 52 (6-20) Glucose Level 127 mg/dL (70-99) Calcium Level 9.2 mg/dL (8.5-10.1) Total Bilirubin 0.4 mg/dL (0.2-1.0) Aspartate Amino Transf (AST/SGOT) 29 U/L (15-37) Alanine Aminotransferase (ALT/SGPT) 27 U/L (14-59) Alkaline Phosphatase 109 U/L (46-116) Total Protein 6.7 g/dL (6.4-8.2) Albumin 2.2 g/dL (3.4-5.0) Albumin/Globulin Ratio 0.5 (1.0-1.7) Test 09/04/19 12:00 09/04/19 17:46 09/04/19 23:47 09/05/19 05:56 Glucose (Fingerstick) 225 mg/dL (70-99) 145 mg/dL (70-99) 240 mg/dL (70-99) 162 mg/dL (70-99) Test 09/05/19 06:00 White Blood Count 13.8 x10^3/uL (4.0-11.0) Red Blood Count 2.81 x10^6/uL (3.50-5.40) Hemoglobin 7.9 g/dL (12.0-15.5) Hematocrit 24.9 % (36.0-47.0) Mean Corpuscular Volume 89 fL (79-100) Mean Corpuscular Hemoglobin 28 pg (25-35) Mean Corpuscular Hemoglobin Concent 32 g/dL (31-37) Red Cell Distribution Width 18.1 % (11.5-14.5) Platelet Count 486 x10^3/uL (140-400) Neutrophils (%) (Auto) 72 % (31-73) Lymphocytes (%) (Auto) 21 % (24-48) Monocytes (%) (Auto) 6 % (0-9) Eosinophils (%) (Auto) 1 % (0-3) Basophils (%) (Auto) 0 % (0-3) Neutrophils # (Auto) 10.0 x10^3/uL (1.8-7.7) Lymphocytes # (Auto) 2.9 x10^3/uL (1.0-4.8) Monocytes # (Auto) 0.8 x10^3/uL (0.0-1.1) Eosinophils # (Auto) 0.1 x10^3/uL (0.0-0.7) Basophils # (Auto) 0.0 x10^3/uL (0.0-0.2) Sodium Level 141 mmol/L (136-145) Potassium Level 4.8 mmol/L (3.5-5.1) Chloride Level 99 mmol/L (98-107) Carbon Dioxide Level 42 mmol/L (21-32) Anion Gap 0 (6-14) Blood Urea Nitrogen 26 mg/dL (7-20) Creatinine 0.6 mg/dL (0.6-1.0) Estimated GFR (Cockcroft-Gault) 106.3 Glucose Level 164 mg/dL (70-99) Calcium Level 9.3 mg/dL (8.5-10.1) Phosphorus Level 4.3 mg/dL (2.6-4.7) Magnesium Level 2.0 mg/dL (1.8-2.4) Triglycerides Level 221 mg/dL (0-150) Laboratory Tests Test 09/04/19 12:00 09/04/19 17:46 09/04/19 23:47 09/05/19 05:56 Glucose (Fingerstick) 225 mg/dL (70-99) 145 mg/dL (70-99) 240 mg/dL (70-99) 162 mg/dL (70-99) Test 09/05/19 06:00 White Blood Count 13.8 x10^3/uL (4.0-11.0) Red Blood Count 2.81 x10^6/uL (3.50-5.40) Hemoglobin 7.9 g/dL (12.0-15.5) Hematocrit 24.9 % (36.0-47.0) Mean Corpuscular Volume 89 fL (79-100) Mean Corpuscular Hemoglobin 28 pg (25-35) Mean Corpuscular Hemoglobin Concent 32 g/dL (31-37) Red Cell Distribution Width 18.1 % (11.5-14.5) Platelet Count 486 x10^3/uL (140-400) Neutrophils (%) (Auto) 72 % (31-73) Lymphocytes (%) (Auto) 21 % (24-48) Monocytes (%) (Auto) 6 % (0-9) Eosinophils (%) (Auto) 1 % (0-3) Basophils (%) (Auto) 0 % (0-3) Neutrophils # (Auto) 10.0 x10^3/uL (1.8-7.7) Lymphocytes # (Auto) 2.9 x10^3/uL (1.0-4.8) Monocytes # (Auto) 0.8 x10^3/uL (0.0-1.1) Eosinophils # (Auto) 0.1 x10^3/uL (0.0-0.7) Basophils # (Auto) 0.0 x10^3/uL (0.0-0.2) Sodium Level 141 mmol/L (136-145) Potassium Level 4.8 mmol/L (3.5-5.1) Chloride Level 99 mmol/L (98-107) Carbon Dioxide Level 42 mmol/L (21-32) Anion Gap 0 (6-14) Blood Urea Nitrogen 26 mg/dL (7-20) Creatinine 0.6 mg/dL (0.6-1.0) Estimated GFR (Cockcroft-Gault) 106.3 Glucose Level 164 mg/dL (70-99) Calcium Level 9.3 mg/dL (8.5-10.1) Phosphorus Level 4.3 mg/dL (2.6-4.7) Magnesium Level 2.0 mg/dL (1.8-2.4) Triglycerides Level 221 mg/dL (0-150) Microbiology 09/04/19 Blood Culture - Preliminary, Resulted NO GROWTH AFTER 1 DAY 08/24/19 Fungal Culture - Final, Complete 08/24/19 Fungal Culture Result 1 - Final, Complete 08/18/19 Aerobic Culture - Final, Complete 08/18/19 Aerobic Culture Result 1 (ALEXANDRA) - Final, Complete 08/18/19 Gram Stain - Final, Complete 08/18/19 Gram Stain Result 1 (ALEXANDRA) - Final, Complete 08/18/19 Gram Stain Result 2 (ALEXANDRA) - Final, Complete 07/31/19 Urine Culture - Final, Complete 07/31/19 Urine Culture Result 1 (ALEXANDRA) - Final, Complete Medications Current Medications Sodium Chloride 1,000 ml @ 1,000 mls/hr Q1H IV Last administered on 07/04/19at 03:00; Start 07/04/19 at 03:00; Stop 07/04/19 at 03:59; Status DC Ondansetron HCl (Zofran) 4 mg 1X ONCE IVP Last administered on 07/04/19at 03:27; Start 07/04/19 at 03:00; Stop 07/04/19 at 03:01; Status DC Morphine Sulfate (Morphine Sulfate) 4 mg 1X ONCE IV ; Start 07/04/19 at 03:00; Stop 07/04/19 at 03:01; Status Cancel Ketorolac Tromethamine (Toradol 30mg Vial) 30 mg 1X ONCE IV Last administered on 07/04/19at 02:54; Start 07/04/19 at 03:00; Stop 07/04/19 at 03:01; Status DC Fentanyl Citrate (Fentanyl 2ml Vial) 25 mcg 1X ONCE IVP Last administered on 07/04/19at 03:23; Start 07/04/19 at 03:30; Stop 07/04/19 at 03:31; Status DC Fentanyl Citrate (Fentanyl 2ml Vial) 100 mcg STK-MED ONCE .ROUTE ; Start 07/04/19 at 03:18; Stop 07/04/19 at 03:18; Status DC Iohexol (Omnipaque 350 Mg/ml) 90 ml 1X ONCE IV Last administered on 07/04/19at 03:25; Start 07/04/19 at 03:30; Stop 07/04/19 at 03:31; Status DC Info (CONTRAST GIVEN -- Rx MONITORING) 1 each PRN DAILY PRN MC SEE COMMENTS; Start 07/04/19 at 03:30; Stop 07/06/19 at 03:29; Status DC Hydromorphone HCl (Dilaudid) 0.5 mg 1X ONCE IV Last administered on 07/04/19at 03:55; Start 07/04/19 at 04:30; Stop 07/04/19 at 04:32; Status DC Ondansetron HCl (Zofran) 4 mg PRN Q8HRS PRN IV NAUSEA/VOMITING 1ST CHOICE; Start 07/04/19 at 05:00; Stop 07/04/19 at 09:27; Status DC Morphine Sulfate (Morphine Sulfate) 2 mg PRN Q2HR PRN IV SEVERE PAIN 7-10 Last administered on 07/05/19at 12:26; Start 07/04/19 at 05:00; Stop 07/05/19 at 14:15; Status DC Sodium Chloride 1,000 ml @ 125 mls/hr Q8H IV Last administered on 07/04/19at 20:56; Start 07/04/19 at 05:00; Stop 07/05/19 at 04:59; Status DC Hydromorphone HCl (Dilaudid) 0.5 mg PRN Q3HRS PRN IV SEVERE PAIN 7-10 Last administered on 07/05/19at 10:06; Start 07/04/19 at 05:00; Stop 07/05/19 at 12:01; Status DC Piperacillin Sod/ Tazobactam Sod 4.5 gm/Sodium Chloride 100 ml @ 200 mls/hr 1X ONCE IV Last administered on 07/04/19at 05:44; Start 07/04/19 at 06:00; Stop 07/04/19 at 06:29; Status DC Ondansetron HCl (Zofran) 4 mg PRN Q4HRS PRN IV NAUSEA/VOMITING 1ST CHOICE Last administered on 08/28/19at 17:09; Start 07/04/19 at 09:30 Insulin Human Lispro (HumaLOG) 0-9 UNITS Q6HRS SQ Last administered on 09/05/19at 06:00; Start 07/04/19 at 09:30 Dextrose (Dextrose 50%-Water Syringe) 12.5 gm PRN Q15MIN PRN IV SEE COMMENTS; Start 07/04/19 at 09:30 Pantoprazole Sodium (PROTONIX VIAL for IV PUSH) 40 mg DAILYAC IVP Last adminis tered on 09/05/19at 08:07; Start 07/04/19 at 11:30 Prochlorperazine Edisylate (Compazine) 10 mg PRN Q6HRS PRN IV NAUSEA/VOMITING, 2nd CHOICE Last administered on 09/01/19at 06:11; Start 07/04/19 at 17:45 Atenolol (Tenormin) 100 mg DAILY PO ; Start 07/05/19 at 09:00; Stop 07/04/19 at 20:08; Status DC Metoprolol Tartrate (Lopressor Vial) 2.5 mg Q6HRS IVP Last administered on 07/05/19at 05:51; Start 07/04/19 at 20:15; Stop 07/05/19 at 10:02; Status DC Metoprolol Tartrate (Lopressor Vial) 5 mg Q6HRS IVP Last administered on 07/14/19at 00:12; Start 07/05/19 at 10:15; Stop 07/16/19 at 08:48; Status DC Hydromorphone HCl (Dilaudid) 1 mg PRN Q3HRS PRN IV SEVERE PAIN 7-10 Last administered on 07/11/19at 05:13; Start 07/05/19 at 12:00; Stop 07/19/19 at 00:25; Status DC Lidocaine HCl (Buffered Lidocaine 1%) 3 ml STK-MED ONCE .ROUTE ; Start 07/05/19 at 12:55; Stop 07/05/19 at 12:56; Status DC Albumin Human 500 ml @ 125 mls/hr 1X ONCE IV Last administered on 07/05/19at 14:33; Start 07/05/19 at 14:30; Stop 07/05/19 at 18:32; Status DC Norepinephrine Bitartrate 8 mg/ Dextrose 258 ml @ 17.299 mls/ hr CONT PRN IV PER PROTOCOL Last administered on 08/02/19at 12:48; Start 07/05/19 at 15:30; Stop 08/05/19 at 09:19; Status DC Sodium Chloride 1,000 ml @ 125 mls/hr Q8H IV Last administered on 07/05/19at 21:04; Start 07/05/19 at 16:00; Stop 07/06/19 at 02:42; Status DC Albumin Human 500 ml @ 125 mls/hr PRN BID PRN IV After every 2L NSS & BP < 90mm Last administered on 07/20/19at 14:21; Start 07/05/19 at 16:00 Iohexol (Omnipaque 300 Mg/ml) 60 ml 1X ONCE IV Last administered on 07/05/19at 17:20; Start 07/05/19 at 17:00; Stop 07/05/19 at 17:01; Status DC Info (CONTRAST GIVEN -- Rx MONITORING) 1 each PRN DAILY PRN MC SEE COMMENTS; Start 07/05/19 at 17:00; Stop 07/07/19 at 16:59; Status DC Meropenem 1 gm/ Sodium Chloride 100 ml @ 200 mls/hr Q8HRS IV Last administered on 07/06/19at 05:45; Start 07/05/19 at 20:00; Stop 07/06/19 at 08:48; Status DC Furosemide (Lasix) 40 mg 1X ONCE IVP Last administered on 07/05/19at 22:12; Start 07/05/19 at 22:30; Stop 07/05/19 at 22:31; Status DC Calcium Chloride 1000 mg/Sodium Chloride 110 ml @ 220 mls/hr 1X ONCE IV Last administered on 07/05/19at 22:11; Start 07/05/19 at 22:30; Stop 07/05/19 at 22:59; Status DC Albuterol Sulfate (Ventolin Neb Soln) 2.5 mg 1X ONCE NEB Last administered on 07/06/19at 00:56; Start 07/05/19 at 22:30; Stop 07/05/19 at 22:31; Status DC Insulin Human Regular (HumuLIN R VIAL) 5 unit 1X ONCE IV Last administered on 07/05/19at 22:14; Start 07/05/19 at 22:30; Stop 07/05/19 at 22:31; Status DC Magnesium Sulfate 50 ml @ 25 mls/hr 1X ONCE IV Last administered on 07/06/19at 02:57; Start 07/06/19 at 03:00; Stop 07/06/19 at 04:59; Status DC Calcium Gluconate 1000 mg/Sodium Chloride 110 ml @ 220 mls/hr 1X ONCE IV Last administered on 07/06/19at 02:46; Start 07/06/19 at 03:00; Stop 07/06/19 at 03:29; Status DC Sodium Chloride 1,000 ml @ 200 mls/hr Q5H IV Last administered on 07/06/19at 02:46; Start 07/06/19 at 03:00; Stop 07/06/19 at 10:21; Status DC Calcium Gluconate 1000 mg/Sodium Chloride 110 ml @ 220 mls/hr 1X ONCE IV Last administered on 07/06/19at 03:21; Start 07/06/19 at 03:30; Stop 07/06/19 at 03:59; Status DC Sodium Bicarbonate 50 meq/Sodium Chloride 1,050 ml @ 75 mls/hr Q14H IV Last administered on 07/10/19at 21:10; Start 07/06/19 at 07:30; Stop 07/11/19 at 10:28; Status DC Calcium Gluconate 2000 mg/Sodium Chloride 120 ml @ 220 mls/hr 1X ONCE IV Last administered on 07/06/19at 09:05; Start 07/06/19 at 07:30; Stop 07/06/19 at 08:02; Status DC Lidocaine HCl (Xylocaine-Mpf 1% 2ml Vial) 2 ml STK-MED ONCE .ROUTE ; Start 07/06/19 at 08:47; Stop 07/06/19 at 08:47; Status DC Meropenem 500 mg/ Sodium Chloride 50 ml @ 100 mls/hr Q12HR IV Last administered on 07/11/19at 21:01; Start 07/06/19 at 18:00; Stop 07/12/19 at 07:58; Status DC Lidocaine HCl (Buffered Lidocaine 1%) 3 ml STK-MED ONCE .ROUTE ; Start 07/06/19 at 09:46; Stop 07/06/19 at 09:46; Status DC Lidocaine HCl (Buffered Lidocaine 1%) 6 ml 1X ONCE INJ Last administered on 07/06/19at 10:26; Start 07/06/19 at 10:15; Stop 07/06/19 at 10:16; Status DC Info (Tpn Per Pharmacy) 1 each PRN DAILY PRN MC SEE COMMENTS Last administered on 09/04/19at 10:36; Start 07/06/19 at 12:00 Sodium Chloride 1,000 ml @ 1,000 mls/hr Q1H PRN IV hypotension; Start 07/06/19 at 12:07; Stop 07/06/19 at 18:06; Status DC Diphenhydramine HCl (Benadryl) 25 mg 1X PRN PRN IV ITCHING; Start 07/06/19 at 12:15; Stop 07/07/19 at 12:14; Status DC Diphenhydramine HCl (Benadryl) 25 mg 1X PRN PRN IV ITCHING; Start 07/06/19 at 12:15; Stop 07/07/19 at 12:14; Status DC Sodium Chloride 1,000 ml @ 400 mls/hr Q2H30M PRN IV PATENCY; Start 07/06/19 at 12:07; Stop 07/07/19 at 00:06; Status DC Info (PHARMACY MONITORING -- do not chart) 1 each PRN DAILY PRN MC SEE COMMENTS; Start 07/06/19 at 12:15; Stop 07/08/19 at 08:13; Status DC Sodium Chloride 90 meq/Calcium Gluconate 10 meq/ Multivitamins 10 ml/Chromium/ Copper/Manganese/ Seleni/Zn 1 ml/ Total Parenteral Nutrition/Amino Acids/Dextrose/ Fat Emulsion Intravenous 55.005 ml @ 2.292 mls/hr TPN CONT IV ; Start 07/06/19 at 22:00; Stop 07/06/19 at 12:33; Status DC Info (Tpn Per Pharmacy) 1 each PRN DAILY PRN MC SEE COMMENTS; Start 07/06/19 at 12:30; Status UNV Sodium Chloride 90 meq/Calcium Gluconate 10 meq/ Multivitamins 10 ml/Chromium/ Copper/Manganese/ Seleni/Zn 0.5 ml/ Total Parenteral Nutrition/Amino Acids/Dextrose/ Fat Emulsion Intravenous 1,512 ml @ 63 mls/hr TPN CONT IV Last administered on 07/06/19at 22:06; Start 07/06/19 at 22:00; Stop 07/07/19 at 21:59; Status DC Calcium Carbonate/ Glycine (Tums) 500 mg PRN AFTMEALHC PRN PO INDIGESTION; Start 07/06/19 at 17:45; Stop 08/31/19 at 10:25; Status DC Calcium Gluconate (Calcium Gluconate) 2,000 mg 1X ONCE IVP Last administered on 07/07/19at 02:19; Start 07/07/19 at 02:15; Stop 07/07/19 at 02:16; Status DC Calcium Chloride 3000 mg/Sodium Chloride 1,030 ml @ 50 mls/hr [id number] IV Last administered on 07/09/19at 02:17; Start 07/07/19 at 08:00; Stop 07/09/19 at 15:23; Status DC Lorazepam (Ativan Inj) 1 mg PRN Q4HRS PRN IVP ANXIETY / AGITATION, 2nd choic Last administered on 08/05/19at 03:51; Start 07/07/19 at 09:00; Stop 08/05/19 at 09:19; Status DC Sodium Chloride 1,000 ml @ 1,000 mls/hr Q1H PRN IV hypotension; Start 07/07/19 at 08:56; Stop 07/07/19 at 14:55; Status DC Albumin Human 200 ml @ 200 mls/hr 1X PRN PRN IV Hypotension; Start 07/07/19 at 09:00; Stop 07/07/19 at 14:59; Status DC Diphenhydramine HCl (Benadryl) 25 mg 1X PRN PRN IV ITCHING; Start 07/07/19 at 09:00; Stop 07/08/19 at 08:59; Status DC Diphenhydramine HCl (Benadryl) 25 mg 1X PRN PRN IV ITCHING; Start 07/07/19 at 09:00; Stop 07/08/19 at 08:59; Status DC Sodium Chloride 1,000 ml @ 400 mls/hr Q2H30M PRN IV PATENCY; Start 07/07/19 at 08:56; Stop 07/07/19 at 20:55; Status DC Info (PHARMACY MONITORING -- do not chart) 1 each PRN DAILY PRN MC SEE COMMENTS; Start 07/07/19 at 09:00; Status UNV Info (PHARMACY MONITORING -- do not chart) 1 each PRN DAILY PRN MC SEE COMMENTS; Start 07/07/19 at 09:00; Stop 07/08/19 at 08:13; Status DC Digoxin (Lanoxin) 500 mcg 1X ONCE IV Last administered on 07/07/19at 10:04; Start 07/07/19 at 10:00; Stop 07/07/19 at 10:01; Status DC Digoxin (Lanoxin) 125 mcg 1X ONCE IV Last administered on 07/07/19at 17:10; Start 07/07/19 at 18:00; Stop 07/07/19 at 18:01; Status DC Magnesium Sulfate 100 ml @ 25 mls/hr 1X ONCE IV Last administered on 07/07/19at 12:48; Start 07/07/19 at 13:00; Stop 07/07/19 at 16:59; Status DC Sodium Chloride 90 meq/Magnesium Sulfate 10 meq/ Calcium Gluconate 20 meq/ Multivitamins 10 ml/Chromium/ Copper/Manganese/ Seleni/Zn 0.5 ml/ Total Parenteral Nutrition/Amino Acids/Dextrose/ Fat Emulsion Intravenous 1,512 ml @ 63 mls/hr TPN CONT IV Last administered on 07/07/19at 22:25; Start 07/07/19 at 22:00; Stop 07/08/19 at 21:59; Status DC Sodium Chloride 1,000 ml @ 1,000 mls/hr Q1H PRN IV hypotension; Start 07/08/19 at 08:05; Stop 07/08/19 at 14:04; Status DC Albumin Human 200 ml @ 200 mls/hr 1X ONCE IV Last administered on 07/08/19at 08:57; Start 07/08/19 at 08:15; Stop 07/08/19 at 09:14; Status DC Diphenhydramine HCl (Benadryl) 25 mg 1X PRN PRN IV ITCHING; Start 07/08/19 at 08:15; Stop 07/09/19 at 08:14; Status DC Diphenhydramine HCl (Benadryl) 25 mg 1X PRN PRN IV ITCHING; Start 07/08/19 at 08:15; Stop 07/09/19 at 08:14; Status DC Sodium Chloride 1,000 ml @ 400 mls/hr Q2H30M PRN IV PATENCY; Start 07/08/19 at 08:05; Stop 07/08/19 at 20:04; Status DC Info (PHARMACY MONITORING -- do not chart) 1 each PRN DAILY PRN MC SEE COMMENTS; Start 07/08/19 at 08:15; Stop 07/12/19 at 07:57; Status DC Sodium Chloride 90 meq/Potassium Chloride 15 meq/ Potassium Phosphate 10 mmol/ Magnesium Sulfate 10 meq/Calcium Gluconate 20 meq/ Multivitamins 10 ml/Chromium/ Copper/Manganese/ Seleni/Zn 0.5 ml/ Total Parenteral Nutrition/Amino Acids/Dextrose/ Fat Emulsion Intravenous 1,512 ml @ 63 mls/hr TPN CONT IV Last administered on 07/08/19at 21:01; Start 07/08/19 at 22:00; Stop 07/09/19 at 21:59; Status DC Potassium Chloride/Water 100 ml @ 100 mls/hr 1X ONCE IV Last administered on 07/08/19at 14:09; Start 07/08/19 at 14:00; Stop 07/08/19 at 14:59; Status DC Benzocaine (Hurricaine One) 1 spray 1X ONCE MM Last administered on 07/08/19at 16:38; Start 07/08/19 at 14:30; Stop 07/08/19 at 14:31; Status DC Lidocaine HCl (Glydo (Lidocaine) Jelly) 1 ramu 1X ONCE MM Last administered on 07/08/19at 16:38; Start 07/08/19 at 14:30; Stop 07/08/19 at 14:31; Status DC Linezolid/Dextrose 300 ml @ 300 mls/hr Q12HR IV Last administered on 07/14/19at 21:04; Start 07/08/19 at 20:00; Stop 07/15/19 at 07:50; Status DC Acetaminophen (Tylenol) 650 mg PRN Q6HRS PRN PO MILD PAIN / TEMP; Start 07/09/19 at 03:30; Stop 07/09/19 at 03:36; Status DC Acetaminophen (Tylenol) 650 mg PRN Q6HRS PRN PEG MILD PAIN / TEMP Last administered on 08/04/19at 19:56; Start 07/09/19 at 03:36; Stop 08/31/19 at 10:25; Status DC Sodium Chloride 1,000 ml @ 1,000 mls/hr Q1H PRN IV hypotension; Start 07/09/19 at 07:50; Stop 07/09/19 at 13:49; Status DC Albumin Human 200 ml @ 200 mls/hr 1X PRN PRN IV Hypotension; Start 07/09/19 at 08:00; Stop 07/09/19 at 13:59; Status DC Sodium Chloride (Normal Saline Flush) 10 ml 1X PRN PRN IV AP catheter pack; Start 07/09/19 at 08:00; Stop 07/10/19 at 07:59; Status DC Sodium Chloride (Normal Saline Flush) 10 ml 1X PRN PRN IV [employer] catheter pack; Start 07/09/19 at 08:00; Stop 07/10/19 at 07:59; Status DC Sodium Chloride 1,000 ml @ 400 mls/hr Q2H30M PRN IV PATENCY; Start 07/09/19 at 07:50; Stop 07/09/19 at 19:49; Status DC Info (PHARMACY MONITORING -- do not chart) 1 each PRN DAILY PRN MC SEE COMMENTS; Start 07/09/19 at 08:00; Status UNV Info (PHARMACY MONITORING -- do not chart) 1 each PRN DAILY PRN MC SEE COMMENTS; Start 07/09/19 at 08:00; Stop 07/11/19 at 08:25; Status DC Sodium Chloride 90 meq/Potassium Chloride 15 meq/ Potassium Phosphate 10 mmol/ Magnesium Sulfate 10 meq/Calcium Gluconate 20 meq/ Multivitamins 10 ml/Chromium/ Copper/Manganese/ Seleni/Zn 0.5 ml/ Total Parenteral Nutrition/Amino Acids/Dextrose/ Fat Emulsion Intravenous 1,512 ml @ 63 mls/hr TPN CONT IV Last administered on 07/09/19at 20:57; Start 07/09/19 at 22:00; Stop 07/10/19 at 21:59; Status DC Sodium Chloride 90 meq/Potassium Chloride 15 meq/ Potassium Phosphate 15 mmol/ Magnesium Sulfate 10 meq/Calcium Gluconate 20 meq/ Multivitamins 10 ml/Chromium/ Copper/Manganese/ Seleni/Zn 0.5 ml/ Total Parenteral Nutrition/Amino Acids/Dextrose/ Fat Emulsion Intravenous 1,512 ml @ 63 mls/hr TPN CONT IV ; Start 07/10/19 at 22:00; Stop 07/10/19 at 14:16; Status DC Sodium Chloride 90 meq/Potassium Chloride 15 meq/ Potassium Phosphate 15 mmol/ Magnesium Sulfate 10 meq/Calcium Gluconate 20 meq/ Multivitamins 10 ml/Chromium/ Copper/Manganese/ Seleni/Zn 0.5 ml/ Total Parenteral Nutrition/Amino Acids/Dextrose/ Fat Emulsion Intravenous 1,200 ml @ 50 mls/hr TPN CONT IV ; Start 07/10/19 at 22:00; Stop 07/10/19 at 14:17; Status DC Sodium Chloride 90 meq/Potassium Chloride 15 meq/ Potassium Phosphate 10 mmol/ Magnesium Sulfate 10 meq/Calcium Gluconate 20 meq/ Multivitamins 10 ml/Chromium/ Copper/Manganese/ Seleni/Zn 0.5 ml/ Total Parenteral Nutrition/Amino Acids/Dextrose/ Fat Emulsion Intravenous 1,200 ml @ 50 mls/hr TPN CONT IV Last administered on 07/10/19at 23:29; Start 07/10/19 at 22:00; Stop 07/11/19 at 21:59; Status DC Sodium Chloride 1,000 ml @ 1,000 mls/hr Q1H PRN IV hypotension; Start 07/11/19 at 07:28; Stop 07/11/19 at 13:27; Status DC Albumin Human 200 ml @ 200 mls/hr 1X ONCE IV Last administered on 07/11/19at 08:51; Start 07/11/19 at 07:30; Stop 07/11/19 at 08:29; Status DC Diphenhydramine HCl (Benadryl) 25 mg 1X PRN PRN IV ITCHING; Start 07/11/19 at 07:30; Stop 07/12/19 at 07:29; Status DC Diphenhydramine HCl (Benadryl) 25 mg 1X PRN PRN IV ITCHING; Start 07/11/19 at 07:30; Stop 07/12/19 at 07:29; Status DC Sodium Chloride 1,000 ml @ 400 mls/hr Q2H30M PRN IV PATENCY; Start 07/11/19 at 07:28; Stop 07/11/19 at 19:27; Status DC Info (PHARMACY MONITORING -- do not chart) 1 each PRN DAILY PRN MC SEE COMMENTS; Start 07/11/19 at 07:30; Stop 07/22/19 at 13:01; Status DC Metronidazole 100 ml @ 100 mls/hr Q6HRS IV Last administered on 07/27/19at 06:26; Start 07/11/19 at 08:30; Stop 07/27/19 at 09:58; Status DC Micafungin Sodium 100 mg/Dextrose 100 ml @ 100 mls/hr Q24H IV Last administered on 08/18/19at 08:18; Start 07/11/19 at 09:00; Stop 08/18/19 at 20:58; Status DC Propofol 0 ml @ As Directed STK-MED ONCE IV ; Start 07/11/19 at 07:53; Stop 07/11/19 at 07:53; Status DC Etomidate (Amidate) 20 mg STK-MED ONCE IV ; Start 07/11/19 at 07:53; Stop at 07:54; Status DC Midazolam HCl (Versed) 5 mg STK-MED ONCE .ROUTE ; Start 07/11/19 at 07:57; Stop 07/11/19 at 07:57; Status DC Fentanyl Citrate 30 ml @ 0 mls/hr CONT PRN IV SEE PROTOCOL Last administered on 08/05/19at 06:12; Start 07/11/19 at 08:15; Stop 08/05/19 at 09:19; Status DC Artificial Tears (Artificial Tears) 1 drop PRN Q1HR PRN OU DRY EYE, 1st choice; Start 07/11/19 at 08:15; Stop 08/17/19 at 05:31; Status DC Midazolam HCl 50 mg/Sodium Chloride 50 ml @ 0 mls/hr CONT PRN IV SEE PROTOCOL Last administered on 07/14/19at 22:39; Start 07/11/19 at 08:15; Stop 07/16/19 at 15:59; Status DC Etomidate (Amidate) 8 mg 1X ONCE IV Last administered on 07/11/19at 08:33; Start 07/11/19 at 08:30; Stop 07/11/19 at 08:31; Status DC Succinylcholine Chloride (Anectine) 120 mg 1X ONCE IV Last administered on 07/11/19at 08:34; Start 07/11/19 at 08:30; Stop 07/11/19 at 08:31; Status DC Midazolam HCl (Versed) 5 mg 1X ONCE IV ; Start 07/11/19 at 08:30; Stop 07/11/19 at 08:31; Status DC Potassium Chloride 15 meq/ Bicarbonate Dialysis Soln w/ out KCl 5,007.5 ml @ 1,000 mls/ hr Q5H1M IV Last administered on 07/12/19at 11:11; Start 07/11/19 at 12:00; Stop 07/12/19 at 11:15; Status DC Potassium Chloride 15 meq/ Bicarbonate Dialysis Soln w/ out KCl 5,007.5 ml @ 1,000 mls/ hr Q5H1M IV Last administered on 07/12/19at 11:12; Start 07/11/19 at 12:00; Stop 07/12/19 at 11:17; Status DC Potassium Chloride 15 meq/ Bicarbonate Dialysis Soln w/ out KCl 5,007.5 ml @ 1,000 mls/ hr Q5H1M IV Last administered on 07/12/19at 11:11; Start 07/11/19 at 12:00; Stop 07/12/19 at 11:19; Status DC Sodium Chloride 90 meq/Potassium Chloride 15 meq/ Potassium Phosphate 10 mmol/ Magnesium Sulfate 10 meq/Calcium Gluconate 20 meq/ Multivitamins 10 ml/Chromium/ Copper/Manganese/ Seleni/Zn 0.5 ml/ Total Parenteral Nutrition/Amino Acids/Dextrose/ Fat Emulsion Intravenous 1,400 ml @ 58.333 mls/ hr TPN CONT IV Last administered on 07/11/19at 21:42; Start 07/11/19 at 22:00; Stop 07/12/19 at 21:59; Status DC Heparin Sodium (Porcine) (Heparin Sodium) 5,000 unit Q8HRS SQ Last administered on 07/16/19at 05:55; Start 07/11/19 at 15:00; Stop 07/16/19 at 13:28; Status DC Meropenem 500 mg/ Sodium Chloride 50 ml @ 100 mls/hr Q6HRS IV Last administered on 07/13/19at 06:00; Start 07/12/19 at 09:00; Stop 07/13/19 at 07:29; Status DC Potassium Phosphate 20 mmol/ Sodium Chloride 106.6667 ml @ 51.667 m... 1X ONCE IV Last administered on 07/12/19at 11:22; Start 07/12/19 at 10:15; Stop 07/12/19 at 12:18; Status DC Acetaminophen (Tylenol Supp) 650 mg PRN Q6HRS PRN NE MILD PAIN / TEMP > 100.3'F Last administered on 08/23/19at 09:12; Start 07/12/19 at 10:30 Potassium Chloride/Water 100 ml @ 100 mls/hr Q1H IV Last administered on 07/12/19at 12:12; Start 07/12/19 at 11:00; Stop 07/12/19 at 12:59; Status DC Potassium Chloride 20 meq/ Bicarbonate Dialysis Soln w/ out KCl 5,010 ml @ 1,000 mls/hr Q5H1M IV Last administered on 07/13/19at 08:48; Start 07/12/19 at 12:00; Stop 07/13/19 at 13:03; Status DC Potassium Chloride 20 meq/ Bicarbonate Dialysis Soln w/ out KCl 5,010 ml @ 1,000 mls/hr Q5H1M IV Last administered on 07/17/19at 14:52; Start 07/12/19 at 11:30; Stop 07/17/19 at 19:59; Status DC Potassium Chloride 20 meq/ Bicarbonate Dialysis Soln w/ out KCl 5,010 ml @ 1,000 mls/hr Q5H1M IV Last administered on 07/17/19at 14:53; Start 07/12/19 at 11:30; Stop 07/17/19 at 19:59; Status DC Sodium Chloride 90 meq/Potassium Chloride 15 meq/ Potassium Phosphate 15 mmol/ Magnesium Sulfate 10 meq/Calcium Gluconate 15 meq/ Multivitamins 10 ml/Chromium/ Copper/Manganese/ Seleni/Zn 0.5 ml/ Total Parenteral Nutrition/Amino Acids/Dextrose/ Fat Emulsion Intravenous 1,400 ml @ 58.333 mls/ hr TPN CONT IV Last administered on 07/12/19at 22:17; Start 07/12/19 at 22:00; Stop 07/13/19 at 21:59; Status DC Cefepime HCl (Maxipime) 2 gm Q12HR IVP Last administered on 07/26/19at 20:56; Start 07/13/19 at 09:00; Stop 07/27/19 at 09:58; Status DC Daptomycin 500 mg/ Sodium Chloride 50 ml @ 100 mls/hr Q48H IV Last administered on 07/29/19at 09:57; Start 07/13/19 at 08:30; Stop 07/29/19 at 10:07 ; Status DC Lidocaine HCl (Buffered Lidocaine 1%) 3 ml 1X ONCE INJ Last administered on 07/13/19at 10:27; Start 07/13/19 at 10:30; Stop 07/13/19 at 10:31; Status DC Potassium Phosphate 20 mmol/ Sodium Chloride 106.6667 ml @ 51.667 m... 1X ONCE IV Last administered on 07/13/19at 12:51; Start 07/13/19 at 13:00; Stop 07/13/19 at 15:03; Status DC Sodium Chloride 90 meq/Potassium Chloride 15 meq/ Potassium Phosphate 18 mmol/ Magnesium Sulfate 8 meq/Calcium Gluconate 15 meq/ Multivitamins 10 ml/Chromium/ Copper/Manganese/ Seleni/Zn 0.5 ml/ Total Parenteral Nutrition/Amino Acids/Dextrose/ Fat Emulsion Intravenous 1,400 ml @ 58.333 mls/ hr TPN CONT IV Last administered on 07/13/19at 22:16; Start 07/13/19 at 22:00; Stop 07/14/19 at 21:59; Status DC Potassium Chloride 20 meq/ Bicarbonate Dialysis Soln w/ out KCl 5,010 ml @ 1,000 mls/hr Q5H1M IV Last administered on 07/17/19at 14:54; Start 07/13/19 at 16:00; Stop 07/17/19 at 19:59; Status DC Multi-Ingred Cream/Lotion/Oil/ Oint (Artificial Tears Eye Ointment) 1 ramu PRN Q1HR PRN OU DRY EYE, 2nd choice Last administered on 08/01/19at 08:19; Start 07/13/19 at 17:30 Sodium Chloride 90 meq/Potassium Chloride 15 meq/ Potassium Phosphate 18 mmol/ Magnesium Sulfate 8 meq/Calcium Gluconate 15 meq/ Multivitamins 10 ml/Chromium/ Copper/Manganese/ Seleni/Zn 0.5 ml/ Total Parenteral Nutrition/Amino Acids/Dextrose/ Fat Emulsion Intravenous 1,400 ml @ 58.333 mls/ hr TPN CONT IV Last administered on 07/14/19at 22:00; Start 07/14/19 at 22:00; Stop 07/15/19 at 21:59; Status DC Albumin Human 500 ml @ 125 mls/hr 1X ONCE IV ; Start 07/14/19 at 14:15; Stop 07/14/19 at 18:14; Status DC Sodium Chloride 90 meq/Potassium Chloride 15 meq/ Potassium Phosphate 18 mmol/ Magnesium Sulfate 8 meq/Calcium Gluconate 15 meq/ Multivitamins 10 ml/Chromium/ Copper/Manganese/ Seleni/Zn 0.5 ml/ Insulin Human Regular 10 unit/ Total Parenteral Nutrition/Amino Acids/Dextrose/ Fat Emulsion Intravenous 1,400 ml @ 58.333 mls/ hr TPN CONT IV Last administered on 07/15/19at 21:43; Start 07/15/19 at 22:00; Stop 07/16/19 at 21:59; Status DC Lidocaine HCl (Buffered Lidocaine 1%) 3 ml STK-MED ONCE .ROUTE ; Start 07/13/19 at 10:00; Stop 07/15/19 at 13:57; Status DC Midazolam HCl 100 mg/Sodium Chloride 100 ml @ 7 mls/hr CONT PRN IV SEE PROTOCOL Last administered on 07/27/19at 15:35; Start 07/16/19 at 16:00 Sodium Chloride 90 meq/Potassium Chloride 15 meq/ Potassium Phosphate 18 mmol/ M agnesium Sulfate 8 meq/Calcium Gluconate 15 meq/ Multivitamins 10 ml/Chromium/ Copper/Manganese/ Seleni/Zn 0.5 ml/ Insulin Human Regular 15 unit/ Total Parenteral Nutrition/Amino Acids/Dextrose/ Fat Emulsion Intravenous 1,400 ml @ 58.333 mls/ hr TPN CONT IV Last administered on 07/16/19at 20:34; Start 07/16/19 at 22:00; Stop 07/17/19 at 21:59; Status DC Info (Icu Electrolyte Protocol) 1 ea CONT PRN PRN MC PER PROTOCOL; Start 07/17/19 at 13:15 Sodium Chloride 90 meq/Potassium Chloride 15 meq/ Potassium Phosphate 18 mmol/ Magnesium Sulfate 8 meq/Calcium Gluconate 15 meq/ Multivitamins 10 ml/Chromium/ Copper/Manganese/ Seleni/Zn 0.5 ml/ Insulin Human Regular 15 unit/ Total Parenteral Nutrition/Amino Acids/Dextrose/ Fat Emulsion Intravenous 1,400 ml @ 58.333 mls/ hr TPN CONT IV Last administered on 07/17/19at 22:05; Start 07/17/19 at 22:00; Stop 07/18/19 at 21:59; Status DC Potassium Chloride 15 meq/ Bicarbonate Dialysis Soln w/ out KCl 5,007.5 ml @ 1,000 mls/ hr Q5H1M IV Last administered on 07/20/19at 18:14; Start 07/17/19 at 20:00; Stop 07/21/19 at 13:08; Status DC Potassium Chloride 15 meq/ Bicarbonate Dialysis Soln w/ out KCl 5,007.5 ml @ 1,000 mls/ hr Q5H1M IV Last administered on 07/20/19at 18:14; Start 07/17/19 at 20:00; Stop 07/21/19 at 13:08; Status DC Potassium Chloride 15 meq/ Bicarbonate Dialysis Soln w/ out KCl 5,007.5 ml @ 1,000 mls/ hr Q5H1M IV Last administered on 07/20/19at 18:14; Start 07/17/19 at 20:00; Stop 07/21/19 at 13:08; Status DC Iohexol (Omnipaque 240 Mg/ml) 30 ml 1X ONCE PO Last administered on 07/18/19at 11:30; Start 07/18/19 at 11:30; Stop 07/18/19 at 11:33; Status DC Info (CONTRAST GIVEN -- Rx MONITORING) 1 each PRN DAILY PRN MC SEE COMMENTS; Start 07/18/19 at 11:45; Stop 07/20/19 at 11:44; Status DC Sodium Chloride 90 meq/Potassium Chloride 15 meq/ Potassium Phosphate 18 mmol/ Magnesium Sulfate 8 meq/Calcium Gluconate 15 meq/ Multivitamins 10 ml/Chromium/ Copper/Manganese/ Seleni/Zn 0.5 ml/ Insulin Human Regular 15 unit/ Total Parenteral Nutrition/Amino Acids/Dextrose/ Fat Emulsion Intravenous 1,400 ml @ 58.333 mls/ hr TPN CONT IV Last administered on 07/18/19at 21:47; Start 07/18/19 at 22:00; Stop 07/19/19 at 21:59; Status DC Sodium Chloride 90 meq/Potassium Chloride 15 meq/ Potassium Phosphate 18 mmol/ Magnesium Sulfate 8 meq/Calcium Gluconate 15 meq/ Multivitamins 10 ml/Chromium/ Copper/Manganese/ Seleni/Zn 0.5 ml/ Insulin Human Regular 20 unit/ Total Parenteral Nutrition/Amino Acids/Dextrose/ Fat Emulsion Intravenous 1,400 ml @ 58.333 mls/ hr TPN CONT IV Last administered on 07/19/19at 21:36; Start 07/19/19 at 22:00; Stop 07/20/19 at 21:59; Status DC Alteplase, Recombinant (Cathflo For Central Catheter Clearance) 1 mg 1X ONCE INT CAT Last administered on 07/19/19at 20:03; Start 07/19/19 at 19:30; Stop 07/19/19 at 19:46; Status DC Alteplase, Recombinant (Cathflo For Central Catheter Clearance) 1 mg 1X ONCE INT CAT Last administered on 07/19/19at 22:05; Start 07/19/19 at 22:00; Stop 07/19/19 at 22:01; Status DC Sodium Chloride 90 meq/Potassium Chloride 15 meq/ Potassium Phosphate 18 mmol/ Magnesium Sulfate 8 meq/Calcium Gluconate 15 meq/ Multivitamins 10 ml/Chromium/ Copper/Manganese/ Seleni/Zn 0.5 ml/ Insulin Human Regular 20 unit/ Total Parenteral Nutrition/Amino Acids/Dextrose/ Fat Emulsion Intravenous 1,400 ml @ 58.333 mls/ hr TPN CONT IV Last administered on 07/20/19at 21:30; Start 07/20/19 at 22:00; Stop 07/21/19 at 21:59; Status DC Dexmedetomidine HCl 400 mcg/ Sodium Chloride 100 ml @ 0 mls/hr CONT PRN IV ANXIETY / AGITATION Last administered on 09/05/19at 05:51; Start 07/21/19 at 08:15 Sodium Chloride 500 ml @ 500 mls/hr 1X PRN PRN IV ELEVATED BP, SEE COMMENTS; Start 07/21/19 at 08:15 Atropine Sulfate (ATROPINE 0.5mg SYRINGE) 0.5 mg PRN Q5MIN PRN IV SEE COMMENTS; Start 07/21/19 at 08:15 Furosemide (Lasix) 20 mg 1X ONCE IVP Last administered on 07/21/19at 08:19; Start 07/21/19 at 08:15; Stop 07/21/19 at 08:16; Status DC Lidocaine HCl (Buffered Lidocaine 1%) 3 ml STK-MED ONCE .ROUTE ; Start 07/21/19 at 08:39; Stop 07/21/19 at 08:39; Status DC Lidocaine HCl (Buffered Lidocaine 1%) 6 ml 1X ONCE INJ Last administered on 07/21/19at 09:05; Start 07/21/19 at 09:00; Stop 07/21/19 at 09:06; Status DC Sodium Chloride 90 meq/Potassium Chloride 15 meq/ Potassium Phosphate 18 mmol/ Magnesium Sulfate 8 meq/Calcium Gluconate 15 meq/ Multivitamins 10 ml/Chromium/ Copper/Manganese/ Seleni/Zn 0.5 ml/ Insulin Human Regular 20 unit/ Total Parenteral Nutrition/Amino Acids/Dextrose/ Fat Emulsion Intravenous 1,400 ml @ 58.333 mls/ hr TPN CONT IV Last administered on 07/21/19at 22:45; Start 07/21/19 at 22:00; Stop 07/22/19 at 21:59; Status DC Sodium Chloride 1,000 ml @ 1,000 mls/hr Q1H PRN IV hypotension; Start 07/22/19 at 07:30; Stop 07/22/19 at 13:29; Status DC Albumin Human 200 ml @ 200 mls/hr 1X PRN PRN IV Hypotension Last administered on 07/22/19at 09:36; Start 07/22/19 at 07:30; Stop 07/22/19 at 13:29; Status DC Sodium Chloride (Normal Saline Flush) 10 ml 1X PRN PRN IV AP catheter pack; Start 07/22/19 at 07:30; Stop 07/22/19 at 21:29; Status DC Sodium Chloride (Normal Saline Flush) 10 ml 1X PRN PRN IV [employer] catheter pack; Start 07/22/19 at 07:30; Stop 07/23/19 at 07:29; Status DC Sodium Chloride 1,000 ml @ 400 mls/hr Q2H30M PRN IV PATENCY; Start 07/22/19 at 07:30; Stop 07/22/19 at 19:29; Status DC Info (PHARMACY MONITORING -- do not chart) 1 each PRN DAILY PRN MC SEE COMMENTS; Start 07/22/19 at 07:30; Stop 07/22/19 at 13:02; Status DC Info (PHARMACY MONITORING -- do not chart) 1 each PRN DAILY PRN MC SEE COMMENTS; Start 07/22/19 at 07:30; Stop 07/24/19 at 12:45; Status DC Sodium Chloride 90 meq/Potassium Chloride 15 meq/ Potassium Phosphate 10 mmol/ Magnesium Sulfate 8 meq/Calcium Gluconate 15 meq/ Multivitamins 10 ml/Chromium/ Copper/Manganese/ Seleni/Zn 0.5 ml/ Insulin Human Regular 25 unit/ Total Parenteral Nutrition/Amino Acids/Dextrose/ Fat Emulsion Intravenous 1,400 ml @ 58.333 mls/ hr TPN CONT IV Last administered on 07/22/19at 22:19; Start 07/22/19 at 22:00; Stop 07/23/19 at 21:59; Status DC Heparin Sodium (Porcine) (Heparin Sodium) 5,000 unit Q12HR SQ Last administered on 08/14/19at 08:59; Start 07/22/19 at 21:00; Stop 08/14/19 at 10:05; Status DC Ondansetron HCl (Zofran) 4 mg PRN Q6HRS PRN IV NAUSEA/VOMITING; Start 07/25/19 at 07:00; Stop 07/26/19 at 06:59; Status DC Fentanyl Citrate (Fentanyl 2ml Vial) 25 mcg PRN Q5MIN PRN IV MILD PAIN 1-3; Start 07/25/19 at 07:00; Stop 07/26/19 at 06:59; Status DC Fentanyl Citrate (Fentanyl 2ml Vial) 50 mcg PRN Q5MIN PRN IV MODERATE TO SEVERE PAIN; Start 07/25/19 at 07:00; Stop 07/26/19 at 06:59; Status DC Ringer's Solution 1,000 ml @ 30 mls/hr Q24H IV ; Start 07/25/19 at 07:00; Stop 07/25/19 at 18:59; Status DC Lidocaine HCl (Xylocaine-Mpf 1% 2ml Vial) 2 ml PRN 1X PRN ID PRIOR TO IV START; Start 07/25/19 at 07:00; Stop 07/26/19 at 06:59; Status DC Prochlorperazine Edisylate (Compazine) 5 mg PACU PRN PRN IV NAUSEA, MRX1; Start 07/25/19 at 07:00; Stop 07/26/19 at 06:59; Status DC Sodium Chloride 1,000 ml @ 1,000 mls/hr Q1H PRN IV hypotension; Start 07/23/19 at 09:10; Stop 07/23/19 at 15:09; Status DC Albumin Human 200 ml @ 200 mls/hr 1X PRN PRN IV Hypotension Last administered on 07/23/19at 10:10; Start 07/23/19 at 09:15; Stop 07/23/19 at 15:14; Status DC Sodium Chloride 1,000 ml @ 400 mls/hr Q2H30M PRN IV PATENCY; Start 07/23/19 at 09:10; Stop 07/23/19 at 21:09; Status DC Info (PHARMACY MONITORING -- do not chart) 1 each PRN DAILY PRN MC SEE COMMENTS; Start 07/23/19 at 09:15; Stop 07/24/19 at 12:45; Status DC Info (PHARMACY MONITORING -- do not chart) 1 each PRN DAILY PRN MC SEE COMMENTS; Start 07/23/19 at 09:15; Stop 07/24/19 at 12:45; Status DC Sodium Chloride 90 meq/Potassium Chloride 15 meq/ Potassium Phosphate 10 mmol/ Magnesium Sulfate 8 meq/Calcium Gluconate 15 meq/ Multivitamins 10 ml/Chromium/ Copper/Manganese/ Seleni/Zn 0.5 ml/ Insulin Human Regular 25 unit/ Total Parenteral Nutrition/Amino Acids/Dextrose/ Fat Emulsion Intravenous 1,400 ml @ 58.333 mls/ hr TPN CONT IV Last administered on 07/23/19at 22:10; Start 07/23/19 at 22:00; Stop 07/24/19 at 21:59; Status DC Magnesium Sulfate 50 ml @ 25 mls/hr PRN DAILY PRN IV for Mag < 1.7 on am labs Last administered on 08/08/19at 17:27; Start 07/24/19 at 09:15 Sodium Chloride 90 meq/Potassium Chloride 15 meq/ Potassium Phosphate 10 mmol/ Magnesium Sulfate 8 meq/Calcium Gluconate 15 meq/ Multivitamins 10 ml/Chromium/ Copper/Manganese/ Seleni/Zn 0.5 ml/ Insulin Human Regular 25 unit/ Total Parenteral Nutrition/Amino Acids/Dextrose/ Fat Emulsion Intravenous 1,400 ml @ 58.333 mls/ hr TPN CONT IV Last administered on 07/24/19at 21:20; Start 07/24/19 at 22:00; Stop 07/25/19 at 21:59; Status DC Sodium Chloride 1,000 ml @ 1,000 mls/hr Q1H PRN IV hypotension; Start 07/24/19 at 12:23; Stop 07/24/19 at 18:22; Status DC Albumin Human 200 ml @ 200 mls/hr 1X ONCE IV Last administered on 07/24/19at 13:34; Start 07/24/19 at 12:30; Stop 07/24/19 at 13:29; Status DC Diphenhydramine HCl (Benadryl) 25 mg 1X PRN PRN IV ITCHING; Start 07/24/19 at 12:30; Stop 07/25/19 at 12:29; Status DC Diphenhydramine HCl (Benadryl) 25 mg 1X PRN PRN IV ITCHING; Start 07/24/19 at 12:30; Stop 07/25/19 at 12:29; Status DC Info (PHARMACY MONITORING -- do not chart) 1 each PRN DAILY PRN MC SEE COMMENTS; Start 07/24/19 at 12:30; Status Cancel Bupivacaine HCl/ Epinephrine Bitart (Sensorcain-Epi 0.5%-1:[id number] Mpf) 30 ml STK-MED ONCE .ROUTE Last administered on 07/25/19at 11:44; Start 07/25/19 at 11:00; Stop 07/25/19 at 11:01; Status DC Cellulose (Surgicel Fibrillar 1x2) 1 each STK-MED ONCE .ROUTE ; Start 07/25/19 at 11:00; Stop 07/25/19 at 11:01; Status DC Sodium Chloride 90 meq/Potassium Chloride 15 meq/ Potassium Phosphate 10 mmol/ Magnesium Sulfate 12 meq/Calcium Gluconate 15 meq/ Multivitamins 10 ml/Chromium/ Copper/Manganese/ Seleni/Zn 0.5 ml/ Insulin Human Regular 25 unit/ Total Par enteral Nutrition/Amino Acids/Dextrose/ Fat Emulsion Intravenous 1,400 ml @ 58.333 mls/ hr TPN CONT IV Last administered on 07/25/19at 22:24; Start 07/25/19 at 22:00; Stop 07/26/19 at 21:59; Status DC Propofol 20 ml @ As Directed STK-MED ONCE IV ; Start 07/25/19 at 11:07; Stop 07/25/19 at 11:07; Status DC Cellulose (Surgicel Hemostat 4x8) 1 each STK-MED ONCE .ROUTE Last administered on 07/25/19at 11:44; Start 07/25/19 at 11:55; Stop 07/25/19 at 11:56; Status DC Sevoflurane (Ultane) 60 ml STK-MED ONCE IH ; Start 07/25/19 at 12:46; Stop 07/25/19 at 12:46; Status DC Sodium Chloride 1,000 ml @ 1,000 mls/hr Q1H PRN IV hypotension; Start 07/25/19 at 13:51; Stop 07/25/19 at 19:50; Status DC Albumin Human 200 ml @ 200 mls/hr 1X PRN PRN IV Hypotension Last administered on 07/25/19at 14:51; Start 07/25/19 at 14:00; Stop 07/25/19 at 19:59; Status DC Diphenhydramine HCl (Benadryl) 25 mg 1X PRN PRN IV ITCHING; Start 07/25/19 at 14:00; Stop 07/26/19 at 13:59; Status DC Diphenhydramine HCl (Benadryl) 25 mg 1X PRN PRN IV ITCHING; Start 07/25/19 at 14:00; Stop 07/26/19 at 13:59; Status DC Sodium Chloride 1,000 ml @ 400 mls/hr Q2H30M PRN IV PATENCY; Start 07/25/19 at 13:51; Stop 07/26/19 at 01:50; Status DC Info (PHARMACY MONITORING -- do not chart) 1 each PRN DAILY PRN MC SEE COMM ENTS; Start 07/25/19 at 14:00; Stop 07/28/19 at 08:16; Status DC Heparin Sodium (Porcine) (Hep Lock Adult) 500 unit STK-MED ONCE IVP ; Start 07/26/19 at 09:29; Stop 07/26/19 at 09:30; Status DC Sodium Chloride 1,000 ml @ 1,000 mls/hr Q1H PRN IV hypotension; Start 07/26/19 at 10:43; Stop 07/26/19 at 16:42; Status DC Sodium Chloride 1,000 ml @ 400 mls/hr Q2H30M PRN IV PATENCY; Start 07/26/19 at 10:43; Stop 07/26/19 at 22:42; Status DC Info (PHARMACY MONITORING -- do not chart) 1 each PRN DAILY PRN MC SEE LUIS ALBERTO NTS; Start 07/26/19 at 10:45; Status UNV Info (PHARMACY MONITORING -- do not chart) 1 each PRN DAILY PRN MC SEE COMMENTS; Start 07/26/19 at 10:45; Status UNV Sodium Chloride 90 meq/Potassium Chloride 15 meq/ Magnesium Sulfate 12 meq/Calcium Gluconate 15 meq/ Multivitamins 10 ml/Chromium/ Copper/Manganese/ Seleni/Zn 0.5 ml/ Insulin Human Regular 25 unit/ Total Parenteral Nutrition/ Amino Acids/Dextrose/ Fat Emulsion Intravenous 1,400 ml @ 58.333 mls/ hr TPN CONT IV Last administered on 07/26/19at 22:13; Start 07/26/19 at 22:00; Stop 07/27/19 at 21:59; Status DC Sodium Chloride 1,000 ml @ 1,000 mls/hr Q1H PRN IV hypotension; Start 07/27/19 at 07:50; Stop 07/27/19 at 13:49; Status DC Albumin Human 200 ml @ 200 mls/hr 1X ONCE IV ; Start 07/27/19 at 08:00; Stop 07/27/19 at 08:53; Status DC Diphenhydramine HCl (Benadryl) 25 mg 1X PRN PRN IV ITCHING; Start 07/27/19 at 08:00; Stop 07/28/19 at 07:59; Status DC Diphenhydramine HCl (Benadryl) 25 mg 1X PRN PRN IV ITCHING; Start 07/27/19 at 08:00; Stop 07/28/19 at 07:59; Status DC Info (PHARMACY MONITORING -- do not chart) 1 each PRN DAILY PRN MC SEE COMMENTS; Start 07/27/19 at 08:00; Stop 07/28/19 at 08:16; Status DC Albumin Human 50 ml @ 50 mls/hr 1X ONCE IV ; Start 07/27/19 at 08:53; Stop 07/27/19 at 08:56; Status DC Albumin Human 200 ml @ 50 mls/hr PRN 1X PRN IV HYPOTENSION Last administered on 08/02/19at 11:54; Start 07/27/19 at 09:00 Meropenem 500 mg/ Sodium Chloride 50 ml @ 100 mls/hr Q12H IV Last administered on 08/16/19at 10:45; Start 07/27/19 at 10:00; Stop 08/16/19 at 12:37; Status DC Sodium Chloride 90 meq/Magnesium Sulfate 12 meq/ Calcium Gluconate 15 meq/ Multivitamins 10 ml/Chromium/ Copper/Manganese/ Seleni/Zn 0.5 ml/ Insulin Human Regular 25 unit/ Total Parenteral Nutrition/Amino Acids/Dextrose/ Fat Emulsion Intravenous 1,400 ml @ 58.333 mls/ hr TPN CONT IV Last administered on 07/27/19at 21:41; Start 07/27/19 at 22:00; Stop 07/28/19 at 21:59; Status DC Sodium Chloride 1,000 ml @ 1,000 mls/hr Q1H PRN IV hypotension; Start 07/28/19 at 07:58; Stop 07/28/19 at 13:57; Status DC Albumin Human 200 ml @ 200 mls/hr 1X PRN PRN IV Hypotension Last administered on 07/28/19at 09:30; Start 07/28/19 at 08:00; Stop 07/28/19 at 13:59; Status DC Sodium Chloride 1,000 ml @ 400 mls/hr Q2H30M PRN IV PATENCY; Start 07/28/19 at 07:58; Stop 07/28/19 at 19:57; Status DC Info (PHARMACY MONITORING -- do not chart) 1 each PRN DAILY PRN MC SEE COMMENTS; Start 07/28/19 at 08:00; Status Cancel Info (PHARMACY MONITORING -- do not chart) 1 each PRN DAILY PRN MC SEE COMMENTS; Start 07/28/19 at 08:15; Status UNV Sodium Chloride 90 meq/Potassium Phosphate 5 mmol/ Magnesium Sulfate 12 meq/Calcium Gluconate 15 meq/ Multivitamins 10 ml/Chromium/ Copper/Manganese/ Seleni/Zn 0.5 ml/ Insulin Human Regular 30 unit/ Total Parenteral Nutrition/Amino Acids/Dextrose/ Fat Emulsion Intravenous 1,400 ml @ 58.333 mls/ hr TPN CONT IV Last administered on 07/28/19at 22:08; Start 07/28/19 at 22:00; Stop 07/29/19 at 21:59; Status DC Linezolid/Dextrose 300 ml @ 300 mls/hr Q12HR IV Last administered on 08/08/19at 20:40; Start 07/29/19 at 11:00; Stop 08/09/19 at 08:10; Status DC Sodium Chloride 90 meq/Potassium Phosphate 15 mmol/ Magnesium Sulfate 12 meq/Calcium Gluconate 15 meq/ Multivitamins 10 ml/Chromium/ Copper/Manganese/ Seleni/Zn 0.5 ml/ Insulin Human Regular 30 unit/ Total Parenteral Nutrition/Amino Acids/Dextrose/ Fat Emulsion Intravenous 1,400 ml @ 58.333 mls/ hr TPN CONT IV Last administered on 07/29/19at 21:49; Start 07/29/19 at 22:00; Stop 07/30/19 at 21:59; Status DC Sodium Chloride 90 meq/Potassium Phosphate 15 mmol/ Magnesium Sulfate 12 meq/Calcium Gluconate 15 meq/ Multivitamins 10 ml/Chromium/ Copper/Manganese/ Seleni/Zn 0.5 ml/ Insulin Human Regular 40 unit/ Total Parenteral Nutrition/Amino Acids/Dextrose/ Fat Emulsion Intravenous 1,400 ml @ 58.333 mls/ hr TPN CONT IV Last administered on 07/30/19at 21:21; Start 07/30/19 at 22:00; Stop 07/31/19 at 21:59; Status DC Sodium Chloride 1,000 ml @ 1,000 mls/hr Q1H PRN IV hypotension; Start 07/30/19 at 13:26; Stop 07/30/19 at 19:25; Status DC Albumin Human 200 ml @ 200 mls/hr 1X PRN PRN IV Hypotension Last administered on 07/30/19at 15:00; Start 07/30/19 at 13:30; Stop 07/30/19 at 19:29; Status DC Sodium Chloride (Normal Saline Flush) 10 ml 1X PRN PRN IV AP catheter pack; Start 07/30/19 at 13:30; Stop 07/31/19 at 13:29; Status DC Sodium Chloride (Normal Saline Flush) 10 ml 1X PRN PRN IV [employer] catheter pack; Start 07/30/19 at 13:30; Stop 07/31/19 at 13:29; Status DC Sodium Chloride 1,000 ml @ 400 mls/hr Q2H30M PRN IV PATENCY; Start 07/30/19 at 13:26; Stop 07/31/19 at 01:25; Status DC Info (PHARMACY MONITORING -- do not chart) 1 each PRN DAILY PRN MC SEE COMMENTS; Start 07/30/19 at 13:30; Stop 07/30/19 at 13:33; Status DC Info (PHARMACY MONITORING -- do not chart) 1 each PRN DAILY PRN MC SEE COM MENTS; Start 07/30/19 at 13:30; Stop 07/30/19 at 13:34; Status DC Sodium Chloride 90 meq/Potassium Phosphate 19 mmol/ Magnesium Sulfate 12 meq/Calcium Gluconate 15 meq/ Multivitamins 10 ml/Chromium/ Copper/Manganese/ Seleni/Zn 0.5 ml/ Insulin Human Regular 40 unit/ Total Parenteral Nutrition/Amino Acids/Dextrose/ Fat Emulsion Intravenous 1,400 ml @ 58.333 mls/ hr TPN CONT IV Last administered on 07/31/19at 21:54; Start 07/31/19 at 22:00; Stop 08/01/19 at 21:59; Status DC Sodium Chloride 1,000 ml @ 1,000 mls/hr Q1H PRN IV hypotension; Start 08/01/19 at 09:35; Stop 08/01/19 at 15:34; Status DC Albumin Human 200 ml @ 200 mls/hr 1X PRN PRN IV Hypotension; Start 08/01/19 at 09:45; Stop 08/01/19 at 15:44; Status DC Diphenhydramine HCl (Benadryl) 25 mg 1X PRN PRN IV ITCHING; Start 08/01/19 at 09:45; Stop 08/02/19 at 09:44; Status DC Diphenhydramine HCl (Benadryl) 25 mg 1X PRN PRN IV ITCHING; Start 08/01/19 at 09:45; Stop 08/02/19 at 09:44; Status DC Sodium Chloride 1,000 ml @ 400 mls/hr Q2H30M PRN IV PATENCY; Start 08/01/19 at 09:35; Stop 08/01/19 at 21:34; Status DC Info (PHARMACY MONITORING -- do not chart) 1 each PRN DAILY PRN MC SEE COMMENTS; Start 08/01/19 at 09:45; Status Cancel Sodium Chloride 100 meq/Potassium Phosphate 19 mmol/ Magnesium Sulfate 12 meq/Calcium Gluconate 15 meq/ Multivitamins 10 ml/Chromium/ Copper/Manganese/ Seleni/Zn 0.5 ml/ Insulin Human Regular 40 unit/ Potassium Chloride 20 meq/ Total Parenteral Nutrition/Amino Acids/Dextrose/ Fat Emulsion Intravenous 1,400 ml @ 58.333 mls/ hr TPN CONT IV Last administered on 08/01/19at 22:02; Start 08/01/19 at 22:00; Stop 08/02/19 at 21:59; Status DC Furosemide (Lasix) 40 mg 1X ONCE IVP Last administered on 08/01/19at 14:39; Start 08/01/19 at 14:30; Stop 08/01/19 at 14:31; Status DC Metronidazole 100 ml @ 100 mls/hr Q8HRS IV Last administered on 08/09/19at 06:04; Start 08/02/19 at 10:00; Stop 08/09/19 at 08:10; Status DC Sodium Chloride 1,000 ml @ 1,000 mls/hr Q1H PRN IV hypotension; Start 08/02/19 at 08:00; Stop 08/02/19 at 13:59; Status DC Albumin Human 200 ml @ 200 mls/hr 1X PRN PRN IV Hypotension; Start 08/02/19 at 08:00; Stop 08/02/19 at 13:59; Status DC Sodium Chloride 1,000 ml @ 400 mls/hr Q2H30M PRN IV PATENCY; Start 08/02/19 at 08:00; Stop 08/02/19 at 19:59; Status DC Info (PHARMACY MONITORING -- do not chart) 1 each PRN DAILY PRN MC SEE COMMENTS; Start 08/02/19 at 11:30; Status UNV Info (PHARMACY MONITORING -- do not chart) 1 each PRN DAILY PRN MC SEE COMMENTS; Start 08/02/19 at 11:30; Stop 08/04/19 at 12:13; Status DC Sodium Chloride 100 meq/Potassium Phosphate 19 mmol/ Magnesium Sulfate 12 meq/Calcium Gluconate 15 meq/ Multivitamins 10 ml/Chromium/ Copper/Manganese/ Seleni/Zn 0.5 ml/ Insulin Human Regular 40 unit/ Potassium Chloride 20 meq/ Total Parenteral Nutrition/Amino Acids/Dextrose/ Fat Emulsion Intravenous 1,400 ml @ 58.333 mls/ hr TPN CONT IV Last administered on 08/02/19at 21:52; Start 08/02/19 at 22:00; Stop 08/03/19 at 21:59; Status DC Sodium Chloride (Normal Saline Flush) 10 ml QSHIFT PRN IV AFTER MEDS AND BLOOD DRAWS; Start 08/02/19 at 15:00; Stop 08/30/19 at 11:27; Status DC Sodium Chloride (Normal Saline Flush) 10 ml PRN Q5MIN PRN IV AFTER MEDS AND BLOOD DRAWS; Start 08/02/19 at 15:00 Sodium Chloride (Normal Saline Flush) 20 ml PRN Q5MIN PRN IV AFTER MEDS AND BLOOD DRAWS; Start 08/02/19 at 15:00 Sodium Chloride 100 meq/Potassium Phosphate 19 mmol/ Magnesium Sulfate 12 meq/Calcium Gluconate 15 meq/ Multivitamins 10 ml/Chromium/ Copper/Manganese/ Seleni/Zn 0.5 ml/ Insulin Human Regular 40 unit/ Potassium Chloride 20 meq/ Total Parenteral Nutrition/Amino Acids/Dextrose/ Fat Emulsion Intravenous 1,400 ml @ 58.333 mls/ hr TPN CONT IV Last administered on 08/03/19at 21:20; Start 08/03/19 at 22:00; Stop 08/04/19 at 21:59; Status DC Lidocaine HCl (Buffered Lidocaine 1%) 3 ml STK-MED ONCE .ROUTE ; Start 08/03/19 at 13:16; Stop 08/03/19 at 13:16; Status DC Lidocaine HCl (Buffered Lidocaine 1%) 6 ml 1X ONCE INJ Last administered on 08/03/19at 13:45; Start 08/03/19 at 13:30; Stop 08/03/19 at 13:31; Status DC Albumin Human 100 ml @ 100 mls/hr 1X ONCE IV Last administered on 08/03/19at 15:41; Start 08/03/19 at 15:00; Stop 08/03/19 at 15:59; Status DC Albumin Human 50 ml @ 50 mls/hr 1X ONCE IV Last administered on 08/03/19at 15:00; Start 08/03/19 at 15:00; Stop 08/03/19 at 15:59; Status DC Info (PHARMACY MONITORING -- do not chart) 1 each PRN DAILY PRN MC SEE COMMENTS; Start 08/04/19 at 11:30; Status Cancel Info (PHARMACY MONITORING -- do not chart) 1 each PRN DAILY PRN MC SEE COMMENTS; Start 08/04/19 at 11:30; Status UNV Sodium Chloride 100 meq/Potassium Phosphate 10 mmol/ Magnesium Sulfate 12 meq/Calcium Gluconate 15 meq/ Multivitamins 10 ml/Chromium/ Copper/Manganese/ Seleni/Zn 0.5 ml/ Insulin Human Regular 35 unit/ Potassium Chloride 20 meq/ Tot al Parenteral Nutrition/Amino Acids/Dextrose/ Fat Emulsion Intravenous 1,400 ml @ 58.333 mls/ hr TPN CONT IV Last administered on 08/04/19at 22:10; Start 08/04/19 at 22:00; Stop 08/05/19 at 21:59; Status DC Sodium Chloride 100 meq/Potassium Phosphate 5 mmol/ Magnesium Sulfate 12 meq/Calcium Gluconate 15 meq/ Multivitamins 10 ml/Chromium/ Copper/Manganese/ Seleni/Zn 0.5 ml/ Insulin Human Regular 35 unit/ Potassium Chloride 20 meq/ Total Parenteral Nutrition/Amino Acids/Dextrose/ Fat Emulsion Intravenous 1,400 ml @ 58.333 mls/ hr TPN CONT IV Last administered on 08/05/19at 22:59; Start 08/05/19 at 22:00; Stop 08/06/19 at 21:59; Status DC Sodium Chloride 1,000 ml @ 1,000 mls/hr Q1H PRN IV hypotension; Start 08/06/19 at 08:27; Stop 08/06/19 at 14:26; Status DC Albumin Human 200 ml @ 200 mls/hr 1X PRN PRN IV Hypotension Last administered on 08/06/19at 09:18; Start 08/06/19 at 08:30; Stop 08/06/19 at 14:29; Status DC Sodium Chloride 1,000 ml @ 400 mls/hr Q2H30M PRN IV PATENCY; Start 08/06/19 at 08:27; Stop 08/06/19 at 20:26; Status DC Info (PHARMACY MONITORING -- do not chart) 1 each PRN DAILY PRN MC SEE COMMENTS; Start 08/06/19 at 08:30; Status Cancel Info (PHARMACY MONITORING -- do not chart) 1 each PRN DAILY PRN MC SEE COMMENTS; Start 08/06/19 at 08:30; Stop 08/14/19 at 13:10; Status DC Sodium Chloride 100 meq/Potassium Chloride 40 meq/ Magnesium Sulfate 15 meq/Calcium Gluconate 15 meq/ Multivitamins 10 ml/Chromium/ Copper/Manganese/ Seleni/Zn 0.5 ml/ Insulin Human Regular 35 unit/ Total Parenteral Nutrition/Amino Acids/Dextrose/ Fat Emulsion Intravenous 1,400 ml @ 58.333 mls/ hr TPN CONT IV Last administered on 08/06/19at 22:00; Start 08/06/19 at 22:00; Stop 08/07/19 at 21:59; Status DC Potassium Chloride/Water 100 ml @ 100 mls/hr 1X ONCE IV Last administered on 08/06/19at 17:28; Start 08/06/19 at 14:45; Stop 08/06/19 at 15:44; Status DC Sodium Chloride 100 meq/Potassium Chloride 40 meq/ Magnesium Sulfate 15 meq/Calcium Gluconate 15 meq/ Multivitamins 10 ml/Chromium/ Copper/Manganese/ Seleni/Zn 0.5 ml/ Insulin Human Regular 35 unit/ Total Parenteral Nutrition/Amino Acids/Dextrose/ Fat Emulsion Intravenous 1,400 ml @ 58.333 mls/ hr TPN CONT IV Last administered on 08/07/19at 22:46; Start 08/07/19 at 22:00; Stop 08/08/19 at 21:59; Status DC Sodium Chloride 100 meq/Potassium Chloride 40 meq/ Magnesium Sulfate 20 meq/Calcium Gluconate 15 meq/ Multivitamins 10 ml/Chromium/ Copper/Manganese/ Seleni/Zn 0.5 ml/ Insulin Human Regular 35 unit/ Total Parenteral Nutrition/Amino Acids/Dextrose/ Fat Emulsion Intravenous 1,400 ml @ 58.333 mls/ hr TPN CONT IV Last administered on 08/08/19at 22:31; Start 08/08/19 at 22:00; Stop 08/09/19 at 21:59; Status DC Fentanyl Citrate (Fentanyl 2ml Vial) 50 mcg PRN Q2HR PRN IVP PAIN Last administered on 08/15/19at 13:32; Start 08/08/19 at 21:00; Stop 08/16/19 at 12:53; Status DC Fentanyl Citrate (Fentanyl 2ml Vial) 25 mcg PRN Q2HR PRN IVP PAIN; Start 08/08/19 at 21:00; Stop 08/16/19 at 12:54; Status DC Enoxaparin Sodium (Lovenox 100mg Syringe) 100 mg Q12HR SQ ; Start 08/09/19 at 21:00; Status UNV Amino Acids/ Glycerin/ Electrolytes 1,000 ml @ 75 mls/hr [id number] IV ; Start 08/08/19 at 21:15; Status UNV Sodium Chloride 1,000 ml @ 1,000 mls/hr Q1H PRN IV hypotension; Start 08/09/19 at 07:56; Stop 08/09/19 at 13:55; Status DC Albumin Human 200 ml @ 200 mls/hr 1X PRN PRN IV Hypotension Last administered on 08/09/19at 08:40; Start 08/09/19 at 08:00; Stop 08/09/19 at 13:59; Status DC Sodium Chloride 1,000 ml @ 400 mls/hr Q2H30M PRN IV PATENCY; Start 08/09/19 at 07:56; Stop 08/09/19 at 19:55; Status DC Info (PHARMACY MONITORING -- do not chart) 1 each PRN DAILY PRN MC SEE COMMENTS; Start 08/09/19 at 08:00; Status UNV Info (PHARMACY MONITORING -- do not chart) 1 each PRN DAILY PRN MC SEE COMMENTS; Start 08/09/19 at 08:00; Status UNV Daptomycin 430 mg/ Sodium Chloride 50 ml @ 100 mls/hr Q24H IV Last administered on 08/09/19at 12:35; Start 08/09/19 at 09:00; Stop 08/09/19 at 12:49; Status DC Sodium Chloride 100 meq/Potassium Chloride 40 meq/ Magnesium Sulfate 20 meq/C alcium Gluconate 15 meq/ Multivitamins 10 ml/Chromium/ Copper/Manganese/ Seleni/Zn 0.5 ml/ Insulin Human Regular 35 unit/ Total Parenteral Nutrition/Amino Acids/Dextrose/ Fat Emulsion Intravenous 1,400 ml @ 58.333 mls/ hr TPN CONT IV Last administered on 08/09/19at 21:26; Start 08/09/19 at 22:00; Stop 08/10/19 at 21:59; Status DC Daptomycin 430 mg/ Sodium Chloride 50 ml @ 100 mls/hr Q48H IV ; Start 08/11/19 at 09:00; Stop 08/10/19 at 11:55; Status DC Sodium Chloride 100 meq/Potassium Chloride 40 meq/ Magnesium Sulfate 20 meq/Calcium Gluconate 15 meq/ Multivitamins 10 ml/Chromium/ Copper/Manganese/ Seleni/Zn 0.5 ml/ Insulin Human Regular 35 unit/ Total Parenteral Nutrition/Amino Acids/Dextrose/ Fat Emulsion Intravenous 1,400 ml @ 58.333 mls/ hr TPN CONT IV Last administered on 08/10/19at 22:27; Start 08/10/19 at 22:00; Stop 08/11/19 at 21:59; Status DC Daptomycin 430 mg/ Sodium Chloride 50 ml @ 100 mls/hr Q24H IV Last administered on 08/12/19at 15:07; Start 08/10/19 at 13:00; Stop 08/13/19 at 13:15; Status DC Sodium Chloride 100 meq/Potassium Chloride 40 meq/ Magnesium Sulfate 20 meq/Calcium Gluconate 10 meq/ Multivitamins 10 ml/Chromium/ Copper/Manganese/ Seleni/Zn 0.5 ml/ Insulin Human Regular 35 unit/ Total Parenteral Nutrition/Amino Acids/Dextrose/ Fat Emulsion Intravenous 1,400 ml @ 58.333 mls/ hr TPN CONT IV Last administered on 08/12/19at 00:06; Start 08/11/19 at 22:00; Stop 08/12/19 at 21:59; Status DC Alteplase, Recombinant (Cathflo For Central Catheter Clearance) 1 mg 1X ONCE INT CAT Last administered on 08/12/19at 11:44; Start 08/12/19 at 10:45; Stop 08/12/19 at 10:46; Status DC Ondansetron HCl (Zofran) 4 mg PRN Q6HRS PRN IV NAUSEA/VOMITING; Start 08/15/19 at 07:00; Stop 08/16/19 at 06:59; Status DC Fentanyl Citrate (Fentanyl 2ml Vial) 25 mcg PRN Q5MIN PRN IV MILD PAIN 1-3; Start 08/15/19 at 07:00; Stop 08/16/19 at 06:59; Status DC Fentanyl Citrate (Fentanyl 2ml Vial) 50 mcg PRN Q5MIN PRN IV MODERATE TO SEVERE PAIN Last administered on 08/15/19at 10:17; Start 08/15/19 at 07:00; Stop 08/16/19 at 06:59; Status DC Ringer's Solution 1,000 ml @ 30 mls/hr Q24H IV ; Start 08/15/19 at 07:00; Stop 08/15/19 at 18:59; Status DC Lidocaine HCl (Xylocaine-Mpf 1% 2ml Vial) 2 ml PRN 1X PRN ID PRIOR TO IV START; Start 08/15/19 at 07:00; Stop 08/16/19 at 06:59; Status DC Prochlorperazine Edisylate (Compazine) 5 mg PACU PRN PRN IV NAUSEA, MRX1; Start 08/15/19 at 07:00; Stop 08/16/19 at 06:59; Status DC Sodium Acetate 50 meq/Potassium Acetate 55 meq/ Magnesium Sulfate 20 meq/Calcium Gluconate 10 meq/ Multivitamins 10 ml/Chromium/ Copper/Manganese/ Seleni/Zn 0.5 ml/ Insulin Human Regular 35 unit/ Total Parenteral Nutrition/Amino Acids/Dextrose/ Fat Emulsion Intravenous 1,400 ml @ 58.333 mls/ hr TPN CONT IV ; Start 08/12/19 at 22:00; Stop 08/12/19 at 14:15; Status DC Sodium Acetate 50 meq/Potassium Acetate 55 meq/ Magnesium Sulfate 20 meq/Calcium Gluconate 10 meq/ Multivitamins 10 ml/Chromium/ Copper/Manganese/ Seleni/Zn 0.5 ml/ Insulin Human Regular 35 unit/ Total Parenteral Nutrition/Amino Acids/De xtrose/ Fat Emulsion Intravenous 1,800 ml @ 75 mls/hr TPN CONT IV Last administered on 08/12/19at 22:38; Start 08/12/19 at 22:00; Stop 08/13/19 at 21:59; Status DC Sodium Chloride 1,000 ml @ 1,000 mls/hr Q1H PRN IV hypotension; Start 08/12/19 at 15:31; Stop 08/12/19 at 21:30; Status DC Diphenhydramine HCl (Benadryl) 25 mg 1X PRN PRN IV ITCHING; Start 08/12/19 at 15:45; Stop 08/13/19 at 15:44; Status DC Diphenhydramine HCl (Benadryl) 25 mg 1X PRN PRN IV ITCHING; Start 08/12/19 at 15:45; Stop 08/13/19 at 15:44; Status DC Sodium Chloride 1,000 ml @ 400 mls/hr Q2H30M PRN IV PATENCY; Start 08/12/19 at 15:31; Stop 08/13/19 at 03:30; Status DC Info (PHARMACY MONITORING -- do not chart) 1 each PRN DAILY PRN MC SEE COMMENTS; Start 08/12/19 at 15:45 Sodium Acetate 50 meq/Potassium Acetate 55 meq/ Magnesium Sulfate 20 meq/Calcium Gluconate 10 meq/ Multivitamins 10 ml/Chromium/ Copper/Manganese/ Seleni/Zn 0.5 ml/ Insulin Human Regular 35 unit/ Total Parenteral Nutrition/Amino Acids/Dextrose/ Fat Emulsion Intravenous 1,800 ml @ 75 mls/hr TPN CONT IV Last administered on 08/13/19at 22:03; Start 08/13/19 at 22:00; Stop 08/14/19 at 21:59; Status DC Daptomycin 430 mg/ Sodium Chloride 50 ml @ 100 mls/hr Q24H IV Last administered on 08/18/19at 13:00; Start 08/13/19 at 13:00; Stop 08/18/19 at 20:58; Status DC Heparin Sodium (Porcine) 1000 unit/Sodium Chloride 1,001 ml @ 1,001 mls/hr 1X ONCE IRR ; Start 08/15/19 at 06:00; Stop 08/15/19 at 06:59; Status DC Potassium Acetate 55 meq/Magnesium Sulfate 20 meq/ Calcium Gluconate 10 meq/ Multivitamins 10 ml/Chromium/ Copper/Manganese/ Seleni/Zn 0.5 ml/ Insulin Human Regular 35 unit/ Total Parenteral Nutrition/Amino Acids/Dextrose/ Fat Emulsion Intravenous 1,920 ml @ 80 mls/hr TPN CONT IV Last administered on 08/14/19at 22:10; Start 08/14/19 at 22:00; Stop 08/15/19 at 21:59; Status DC Dexamethasone Sodium Phosphate (Decadron) 4 mg STK-MED ONCE .ROUTE ; Start 08/15/19 at 10:56; Stop 08/15/19 at 10:57; Status DC Ondansetron HCl (Zofran) 4 mg STK-MED ONCE .ROUTE ; Start 08/15/19 at 10:56; Stop 08/15/19 at 10:57; Status DC Rocuronium [place] (Zemuron) 50 mg STK-MED ONCE .ROUTE ; Start 08/15/19 at 10:56; Stop 08/15/19 at 10:57; Status DC Fentanyl Citrate (Fentanyl 2ml Vial) 100 mcg STK-MED ONCE .ROUTE ; Start 08/15/19 at 10:56; Stop 08/15/19 at 10:57; Status DC Bupivacaine HCl/ Epinephrine Bitart (Sensorcain-Epi 0.5%-1:137634 Mpf) 30 ml STK-MED ONCE .ROUTE Last administered on 08/15/19at 12:01; Start 08/15/19 at 10:58; Stop 08/15/19 at 10:58; Status DC Cellulose (Surgicel Hemostat 2x14) 1 each STK-MED ONCE .ROUTE ; Start 08/15/19 at 10:58; Stop 08/15/19 at 10:59; Status DC Iohexol (Omnipaque 300 Mg/ml) 50 ml STK-MED ONCE .ROUTE ; Start 08/15/19 at 10:58; Stop 08/15/19 at 10:59; Status DC Cellulose (Surgicel Hemostat 4x8) 1 each STK-MED ONCE .ROUTE ; Start 08/15/19 at 10:58; Stop 08/15/19 at 10:59; Status DC Bisacodyl (Dulcolax Supp) 10 mg STK-MED ONCE .ROUTE ; Start 08/15/19 at 10:59; Stop 08/15/19 at 10:59; Status DC Heparin Sodium (Porcine) 1000 unit/Sodium Chloride 1,001 ml @ 1,001 mls/hr 1X ONCE IRR ; Start 08/15/19 at 12:00; Stop 08/15/19 at 12:59; Status DC Propofol 20 ml @ As Directed STK-MED ONCE IV ; Start 08/15/19 at 11:05; Stop 08/15/19 at 11:05; Status DC Sevoflurane (Ultane) 90 ml STK-MED ONCE IH ; Start 08/15/19 at 11:05; Stop 08/15/19 at 11:05; Status DC Sevoflurane (Ultane) 60 ml STK-MED ONCE IH ; Start 08/15/19 at 12:26; Stop 08/15/19 at 12:27; Status DC Propofol 20 ml @ As Directed STK-MED ONCE IV ; Start 08/15/19 at 12:26; Stop 08/15/19 at 12:27; Status DC Phenylephrine HCl (PHENYLEPHRINE in 0.9% NACL PF) 1 mg STK-MED ONCE IV ; Start 08/15/19 at 12:34; Stop 08/15/19 at 12:34; Status DC Heparin Sodium (Porcine) (Heparin Sodium) 5,000 unit Q12HR SQ Last administered on 08/24/19at 20:57; Start 08/15/19 at 21:00; Stop 08/25/19 at 09:59; Status DC Sodium Chloride (Normal Saline Flush) 3 ml QSHIFT PRN IV AFTER MEDS AND BLOOD D RAWS; Start 08/15/19 at 13:45 Naloxone HCl (Narcan) 0.4 mg PRN Q2MIN PRN IV SEE INSTRUCTIONS; Start 08/15/19 at 13:45 Sodium Chloride 1,000 ml @ 25 mls/hr Q24H IV Last administered on 09/04/19at 13:37; Start 08/15/19 at 13:37 Naloxone HCl (Narcan) 0.4 mg PRN Q2MIN PRN IV SEE INSTRUCTIONS; Start 08/15/19 at 14:30; Status UNV Sodium Chloride 1,000 ml @ 25 mls/hr Q24H IV ; Start 08/15/19 at 14:30; Status UNV Hydromorphone HCl 30 ml @ 0 mls/hr CONT PRN PRN IV PER PROTOCOL Last administered on 08/20/19at 16:08; Start 08/15/19 at 14:30; Stop 08/22/19 at 08:55; Status DC Potassium Acetate 55 meq/Magnesium Sulfate 20 meq/ Calcium Gluconate 10 meq/ Multivitamins 10 ml/Chromium/ Copper/Manganese/ Seleni/Zn 0.5 ml/ Insulin Human Regular 35 unit/ Total Parenteral Nutrition/Amino Acids/Dextrose/ Fat Emulsion Intravenous 1,920 ml @ 80 mls/hr TPN CONT IV Last administered on 08/15/19at 22:01; Start 08/15/19 at 22:00; Stop 08/16/19 at 21:59; Status DC Bumetanide (Bumex) 2 mg [id number] IV Last administered on 08/19/19at 13:50; Start 08/16/19 at 14:00; Stop 08/20/19 at 14:10; Status DC Meropenem 1 gm/ Sodium Chloride 100 ml @ 200 mls/hr Q8HRS IV Last administered on 09/05/19at 05:51; Start 08/16/19 at 14:00 Potassium Acetate 55 meq/Magnesium Sulfate 20 meq/ Calcium Gluconate 10 meq/ Multivitamins 10 ml/Chromium/ Copper/Manganese/ Seleni/Zn 0.5 ml/ Insulin Human Regular 35 unit/ Total Parenteral Nutrition/Amino Acids/Dextrose/ Fat Emulsion Intravenous 1,920 ml @ 80 mls/hr TPN CONT IV Last administered on 08/16/19at 22:02; Start 08/16/19 at 22:00; Stop 08/17/19 at 21:59; Status DC Hydromorphone HCl (Dilaudid Standard WINDOW SASH INSTALLER) 12 mg STK-MED ONCE IV ; Start 08/15/19 at 14:35; Stop 08/16/19 at 13:53; Status DC Artificial Tears (Artificial Tears) 1 drop PRN Q15MIN PRN OU DRY EYE Last administered on 09/05/19at 08:08; Start 08/17/19 at 05:30 Hydromorphone HCl (Dilaudid Standard WINDOW SASH INSTALLER) 12 mg STK-MED ONCE IV ; Start 08/16/19 at 12:05; Stop 08/17/19 at 09:15; Status DC Potassium Acetate 65 meq/Magnesium Sulfate 20 meq/ Calcium Gluconate 10 meq/ Multivitamins 10 ml/Chromium/ Copper/Manganese/ Seleni/Zn 0.5 ml/ Insulin Human Regular 30 unit/ Total Parenteral Nutrition/Amino Acids/Dextrose/ Fat Emulsion Intravenous 1,920 ml @ 80 mls/hr TPN CONT IV Last administered on 08/17/19at 22:22; Start 08/17/19 at 22:00; Stop 08/18/19 at 21:59; Status DC Cyclobenzaprine HCl (Flexeril) 10 mg PRN Q6HRS PRN PO MUSCLE SPASMS; Start 08/18/19 at 10:45 Potassium Acetate 55 meq/Magnesium Sulfate 20 meq/ Calcium Gluconate 10 meq/ Multivitamins 10 ml/Chromium/ Copper/Manganese/ Seleni/Zn 0.5 ml/ Insulin Human Regular 30 unit/ Total Parenteral Nutrition/Amino Acids/Dextrose/ Fat Emulsion Intravenous 1,920 ml @ 80 mls/hr TPN CONT IV Last administered on 08/19/19at 01:00; Start 08/18/19 at 22:00; Stop 08/19/19 at 21:59; Status DC Magnesium Sulfate 50 ml @ 25 mls/hr 1X ONCE IV Last administered on 08/18/19at 17:18; Start 08/18/19 at 12:45; Stop 08/18/19 at 14:44; Status DC Potassium Chloride/Water 100 ml @ 100 mls/hr 1X ONCE IV Last administered on 08/19/19at 11:27; Start 08/19/19 at 12:00; Stop 08/19/19 at 12:59; Status DC Hydromorphone HCl (Dilaudid Standard WINDOW SASH INSTALLER) 12 mg STK-MED ONCE IV ; Start 08/17/19 at 10:50; Stop 08/19/19 at 11:02; Status DC Hydromorphone HCl (Dilaudid Standard WINDOW SASH INSTALLER) 12 mg STK-MED ONCE IV ; Start 08/18/19 at 13:47; Stop 08/19/19 at 11:03; Status DC Potassium Acetate 30 meq/Magnesium Sulfate 20 meq/ Calcium Gluconate 10 meq/ Multivitamins 10 ml/Chromium/ Copper/Manganese/ Seleni/Zn 0.5 ml/ Insulin Human Regular 30 unit/ Potassium Chloride 30 meq/ Total Parenteral Nutrition/Amino Acids/Dextrose/ Fat Emulsion Intravenous 1,920 ml @ 80 mls/hr TPN CONT IV Last administered on 08/19/19at 22:34; Start 08/19/19 at 22:00; Stop 08/20/19 at 21:59; Status DC Potassium Chloride/Water 100 ml @ 100 mls/hr Q1H IV Last administered on 08/20/19at 13:05; Start 08/20/19 at 07:00; Stop 08/20/19 at 10:59; Status DC Magnesium Sulfate 50 ml @ 25 mls/hr 1X ONCE IV Last administered on 08/20/19at 10:34; Start 08/20/19 at 10:30; Stop 08/20/19 at 12:29; Status DC Potassium Chloride 75 meq/ Magnesium Sulfate 20 meq/Calcium Gluconate 10 meq/ Multivitamins 10 ml/Chromium/ Copper/Manganese/ Seleni/Zn 0.5 ml/ Insulin Human Regular 30 unit/ Total Parenteral Nutrition/Amino Acids/Dextrose/ Fat Emulsion Intravenous 1,920 ml @ 80 mls/hr TPN CONT IV Last administered on 08/20/19at 21:51; Start 08/20/19 at 22:00; Stop 08/21/19 at 22:00; Status DC Potassium Chloride 75 meq/ Magnesium Sulfate 20 meq/Calcium Gluconate 10 meq/ Multivitamins 10 ml/Chromium/ Copper/Manganese/ Seleni/Zn 0.5 ml/ Insulin Human Regular 25 unit/ Total Parenteral Nutrition/Amino Acids/Dextrose/ Fat Emulsion Intravenous 1,920 ml @ 80 mls/hr TPN CONT IV Last administered on 08/21/19at 22:04; Start 08/21/19 at 22:00; Stop 08/22/19 at 21:59; Status DC Hydromorphone HCl (Dilaudid) 0.4 mg PRN Q4HRS PRN IVP PAIN Last administered on 08/22/19at 10:57; Start 08/22/19 at 09:00; Stop 08/22/19 at 18:59; Status DC Micafungin Sodium 100 mg/Dextrose 100 ml @ 100 mls/hr Q24H IV Last administered on 09/04/19at 11:07; Start 08/22/19 at 11:00 Daptomycin 485 mg/ Sodium Chloride 50 ml @ 100 mls/hr Q24H IV Last administered on 08/29/19at 13:10; Start 08/22/19 at 11:00; Stop 08/30/19 at 07:44; Status DC Potassium Chloride 75 meq/ Magnesium Sulfate 15 meq/Calcium Gluconate 8 meq/ Multivitamins 10 ml/Chromium/ Copper/Manganese/ Seleni/Zn 0.5 ml/ Insulin Human Regular 25 unit/ Total Parenteral Nutrition/Amino Acids/Dextrose/ Fat Emulsion Intravenous 1,920 ml @ 80 mls/hr TPN CONT IV Last administered on 08/22/19at 23:08; Start 08/22/19 at 22:00; Stop 08/23/19 at 21:59; Status DC Haloperidol Lactate (Haldol Inj) 3 mg 1X ONCE IVP Last administered on 08/22/19at 14:37; Start 08/22/19 at 14:30; Stop 08/22/19 at 14:31; Status DC Hydromorphone HCl (Dilaudid) 1 mg PRN Q4HRS PRN IVP PAIN Last administered on 09/05/19at 06:25; Start 08/22/19 at 19:00 Potassium Chloride 75 meq/ Magnesium Sulfate 15 meq/Calcium Gluconate 8 meq/ Multivitamins 10 ml/Chromium/ Copper/Manganese/ Seleni/Zn 0.5 ml/ Insulin Human Regular 20 unit/ Total Parenteral Nutrition/Amino Acids/Dextrose/ Fat Emulsion Intravenous 1,920 ml @ 80 mls/hr TPN CONT IV Last administered on 08/23/19at 22:10; Start 08/23/19 at 22:00; Stop 08/24/19 at 21:59; Status DC Lidocaine HCl (Buffered Lidocaine 1%) 3 ml STK-MED ONCE .ROUTE ; Start 08/24/19 at 11:31; Stop 08/24/19 at 11:31; Status DC Lidocaine HCl (Buffered Lidocaine 1%) 3 ml STK-MED ONCE .ROUTE ; Start 08/24/19 at 12:28; Stop 08/24/19 at 12:29; Status DC Lidocaine HCl (Buffered Lidocaine 1%) 6 ml 1X ONCE INJ Last administered on 08/24/19at 12:53; Start 08/24/19 at 12:45; Stop 08/24/19 at 12:46; Status DC Potassium Chloride 75 meq/ Magnesium Sulfate 15 meq/Calcium Gluconate 8 meq/ Multivitamins 10 ml/Chromium/ Copper/Manganese/ Seleni/Zn 0.5 ml/ Insulin Human Regular 20 unit/ Total Parenteral Nutrition/Amino Acids/Dextrose/ Fat Emulsion Intravenous 1,920 ml @ 80 mls/hr TPN CONT IV Last administered on 08/24/19at 22:00; Start 08/24/19 at 22:00; Stop 08/25/19 at 21:59; Status DC Potassium Chloride 75 meq/ Magnesium Sulfate 15 meq/Calcium Gluconate 8 meq/ Multivitamins 10 ml/Chromium/ Copper/Manganese/ Seleni/Zn 0.5 ml/ Insulin Human Regular 15 unit/ Total Parenteral Nutrition/Amino Acids/Dextrose/ Fat Emulsion Intravenous 1,920 ml @ 80 mls/hr TPN CONT IV Last administered on 08/25/19at 22:28; Start 08/25/19 at 22:00; Stop 08/26/19 at 21:59; Status DC Vecuronium [place] (Norcuron Bolus) 6 mg PRN Q6HRS PRN IV VENT ASYNCHRONY; Start 08/25/19 at 19:15; Stop 08/25/19 at 19:35; Status DC Bumetanide (Bumex) 2 mg 1X ONCE IV Last administered on 08/25/19at 22:09; Start 08/25/19 at 19:45; Stop 08/25/19 at 19:46; Status DC Lidocaine HCl (Buffered Lidocaine 1%) 3 ml STK-MED ONCE .ROUTE ; Start 08/26/19 at 07:59; Stop 08/26/19 at 07:59; Status DC Midazolam HCl (Versed) 5 mg STK-MED ONCE .ROUTE ; Start 08/26/19 at 08:36; Stop 08/26/19 at 08:36; Status DC Fentanyl Citrate (Fentanyl 5ml Vial) 250 mcg STK-MED ONCE .ROUTE ; Start 08/26/19 at 08:36; Stop 08/26/19 at 08:37; Status DC Lidocaine HCl (Buffered Lidocaine 1%) 3 ml 1X ONCE IJ Last administered on 08/26/19at 09:30; Start 08/26/19 at 09:15; Stop 08/26/19 at 09:16; Status DC Midazolam HCl (Versed) 5 mg 1X ONCE IV Last administered on 08/26/19at 09:30; Start 08/26/19 at 09:15; Stop 08/26/19 at 09:16; Status DC Fentanyl Citrate (Fentanyl 5ml Vial) 250 mcg 1X ONCE IV Last administered on 08/26/19at 09:30; Start 08/26/19 at 09:15; Stop 08/26/19 at 09:16; Status DC Bumetanide (Bumex) 2 mg DAILY IV Last administered on 09/05/19at 08:07; Start 08/26/19 at 10:00 Potassium Chloride 75 meq/ Magnesium Sulfate 15 meq/ Multivitamins 10 ml/Chromium/ Copper/Manganese/ Seleni/Zn 0.5 ml/ Insulin Human Regular 15 unit/ Total Parenteral Nutrition/Amino Acids/Dextrose/ Fat Emulsion Intravenous 1,920 ml @ 80 mls/hr TPN CONT IV Last administered on 08/26/19at 21:59; Start 08/26/19 at 22:00; Stop 08/27/19 at 21:59; Status DC Metoclopramide HCl (Reglan Vial) 10 mg PRN Q3HRS PRN IVP NAUSEA/VOMITING-3rd choice Last administered on 09/01/19at 04:25; Start 08/27/19 at 16:45 Potassium Chloride 75 meq/ Magnesium Sulfate 15 meq/ Multivitamins 10 ml/Chromium/ Copper/Manganese/ Seleni/Zn 0.5 ml/ Insulin Human Regular 15 unit/ Total Parenteral Nutrition/Amino Acids/Dextrose/ Fat Emulsion Intravenous 1,920 ml @ 80 mls/hr TPN CONT IV Last administered on 08/27/19at 22:41; Start 08/27/19 at 22:00; Stop 08/28/19 at 21:59; Status DC Magnesium Sulfate 50 ml @ 25 mls/hr 1X ONCE IV Last administered on 08/28/19at 10:44; Start 08/28/19 at 09:00; Stop 08/28/19 at 10:59; Status DC Potassium Chloride/Water 100 ml @ 100 mls/hr 1X ONCE IV Last administered on 08/28/19at 09:37; Start 08/28/19 at 09:00; Stop 08/28/19 at 09:59; Status DC Duloxetine HCl (Cymbalta) 30 mg DAILY PO Last administered on 08/29/19at 09:48; Start 08/28/19 at 14:00; Stop 08/31/19 at 10:25; Status DC Potassium Chloride 80 meq/ Magnesium Sulfate 20 meq/ Multivitamins 10 ml/Chromium/ Copper/Manganese/ Seleni/Zn 0.5 ml/ Insulin Human Regular 15 unit/ Total Parenteral Nutrition/Amino Acids/Dextrose/ Fat Emulsion Intravenous 1,920 ml @ 80 mls/hr TPN CONT IV Last administered on 08/28/19at 21:42; Start 08/28/19 at 22:00; Stop 08/29/19 at 21:59; Status DC Potassium Chloride 80 meq/ Magnesium Sulfate 20 meq/ Multivitamins 10 ml/Chromium/ Copper/Manganese/ Seleni/Zn 0.5 ml/ Insulin Human Regular 15 unit/ Total Parenteral Nutrition/Amino Acids/Dextrose/ Fat Emulsion Intravenous 1,920 ml @ 80 mls/hr TPN CONT IV Last administered on 08/29/19at 22:20; Start 08/29/19 at 22:00; Stop 08/30/19 at 21:59; Status DC Lidocaine HCl (Buffered Lidocaine 1%) 3 ml STK-MED ONCE .ROUTE ; Start 08/30/19 at 09:54; Stop 08/30/19 at 09:55; Status DC Hydromorphone HCl (Dilaudid Standard [employer]) 12 mg STK-MED ONCE IV ; Start 08/19/19 at 15:50; Stop 08/30/19 at 11:24; Status DC Potassium Chloride 80 meq/ Magnesium Sulfate 20 meq/ Multivitamins 10 ml/Chromium/ Copper/Manganese/ Seleni/Zn 0.5 ml/ Insulin Human Regular 15 unit/ Total Parenteral Nutrition/Amino Acids/Dextrose/ Fat Emulsion Intravenous 1,920 ml @ 80 mls/hr TPN CONT IV Last administered on 08/30/19at 21:40; Start 08/30/19 at 22:00; Stop 08/31/19 at 21:59; Status DC Lidocaine HCl (Buffered Lidocaine 1%) 6 ml 1X ONCE INJ Last administered on 08/30/19at 14:15; Start 08/30/19 at 14:15; Stop 08/30/19 at 14:16; Status DC Potassium Chloride 80 meq/ Magnesium Sulfate 20 meq/ Multivitamins 10 ml/Chromium/ Copper/Manganese/ Seleni/Zn 1 ml/ Insulin Human Regular 15 unit/ Total Parenteral Nutrition/Amino Acids/Dextrose/ Fat Emulsion Intravenous 1,920 ml @ 80 mls/hr TPN CONT IV Last administered on 08/31/19at 22:04; Start 08/31/19 at 22:00; Stop 09/01/19 at 21:59; Status DC Potassium Chloride/Water 100 ml @ 100 mls/hr 1X ONCE IV Last administered on 09/01/19at 11:34; Start 09/01/19 at 11:00; Stop 09/01/19 at 11:59; Status DC Potassium Chloride 90 meq/ Magnesium Sulfate 20 meq/ Multivitamins 10 ml/Chromium/ Copper/Manganese/ Seleni/Zn 1 ml/ Insulin Human Regular 15 unit/ Total Parenteral Nutrition/Amino Acids/Dextrose/ Fat Emulsion Intravenous 1,920 ml @ 80 mls/hr TPN CONT IV Last administered on 09/01/19at 22:57; Start 09/01/19 at 22:00; Stop 09/02/19 at 21:59; Status DC Potassium Chloride 90 meq/ Magnesium Sulfate 20 meq/ Multivitamins 10 ml/Chromium/ Copper/Manganese/ Seleni/Zn 1 ml/ Insulin Human Regular 15 unit/ Total Parenteral Nutrition/Amino Acids/Dextrose/ Fat Emulsion Intravenous 1,920 ml @ 80 mls/hr TPN CONT IV Last administered on 09/02/19at 22:48; Start 09/02/19 at 22:00; Stop 09/03/19 at 21:59; Status DC Potassium Chloride 90 meq/ Magnesium Sulfate 20 meq/ Multivitamins 10 ml/Chromium/ Copper/Manganese/ Seleni/Zn 1 ml/ Insulin Human Regular 15 unit/ Total Parenteral Nutrition/Amino Acids/Dextrose/ Fat Emulsion Intravenous 1,890 ml @ 78.75 mls/ hr TPN CONT IV Last administered on 09/03/19at 22:15; Start 09/03/19 at 22:00; Stop 09/04/19 at 21:59; Status DC Linezolid/Dextrose 300 ml @ 300 mls/hr Q12HR IV Last administered on 09/05/19at 08:08; Start 09/04/19 at 09:00 Daptomycin 450 mg/ Sodium Chloride 50 ml @ 100 mls/hr Q24H IV Last administered on 09/05/19at 08:08; Start 09/04/19 at 09:00 Potassium Chloride 90 meq/ Magnesium Sulfate 20 meq/ Multivitamins 10 ml/Chromium/ Copper/Manganese/ Seleni/Zn 1 ml/ Insulin Human Regular 15 unit/ Total Parenteral Nutrition/Amino Acids/Dextrose/ Fat Emulsion Intravenous 1,890 ml @ 78.75 mls/ hr TPN CONT IV Last administered on 09/04/19at 21:34; Start 09/04/19 at 22:00; Stop 09/05/19 at 21:59 Lorazepam (Ativan Inj) 2 mg STK-MED ONCE .ROUTE ; Start 09/04/19 at 14:58; Stop 09/04/19 at 14:58; Status DC Metoprolol Tartrate (Lopressor Vial) 5 mg 1X ONCE IVP Last administered on 09/04/19at 15:31; Start 09/04/19 at 15:15; Stop 09/04/19 at 15:16; Status DC Lorazepam (Ativan Inj) 2 mg 1X ONCE IVP Last administered on 09/04/19at 15:30; Start 09/04/19 at 15:15; Stop 09/04/19 at 15:16; Status DC Enoxaparin Sodium (Lovenox 40mg Syringe) 40 mg Q24H SQ Last administered on 09/04/19at 17:48; Start 09/04/19 at 17:00 Lorazepam (Ativan Inj) 1 mg PRN Q4HRS PRN IVP ANXIETY / AGITATION MILD-MOD; Start 09/04/19 at 19:15 Lorazepam (Ativan Inj) 2 mg PRN Q4HRS PRN IVP ANXIETY / AGITATION SEVERE; Start 09/04/19 at 19:15 Active Scripts Active Reported Bisoprolol Fumarate 5 Mg Tablet 10 Mg PO DAILY Vitals/I & O Vital Sign - Last 24 Hours 09/04/19 09/04/19 09/04/19 09/04/19 11:00 12:00 12:00 13:00 Temp 98.6 98.6 Pulse 119 102 111 Resp 17 20 36 B/P (MAP) 169/73 (105) 181/92 (121) 140/65 (90) Pulse Ox 100 98 94 O2 Delivery Nasal Cannula Nasal Cannula Nasal Cannula Nasal Cannula O2 Flow Rate 2.0 2.0 2.0 2.0 09/04/19 09/04/19 09/04/19 09/04/19 14:00 14:05 14:54 15:00 Pulse 120 148 Resp 30 38 29 36 B/P (MAP) 204/79 (120) 152/70 (97) Pulse Ox 94 98 100 99 O2 Delivery Nasal Cannula Nasal Cannula Nasal Cannula Nasal Cannula O2 Flow Rate 4.0 2.0 2.0 4.0 09/04/19 09/04/19 09/04/19 09/04/19 15:31 15:57 16:00 17:00 Temp 98.4 98.4 Pulse 145 116 123 Resp 28 30 B/P (MAP) 124/65 130/61 (84) 166/94 (118) Pulse Ox 99 99 O2 Delivery Nasal Cannula Nasal Cannula Nasal Cannula O2 Flow Rate 2.0 4.0 4.0 09/04/19 09/04/19 09/04/19 09/04/19 18:00 19:00 20:00 20:00 Temp 98.4 98.4 Pulse 133 130 132 Resp 32 38 34 B/P (MAP) 144/74 (97) 137/77 (97) 151/84 (106) Pulse Ox 3 96 96 O2 Delivery Nasal Cannula Nasal Cannula Nasal Cannula Nasal Cannula O2 Flow Rate 4.0 3.0 3.0 3.0 09/04/19 09/04/19 09/04/19 09/04/19 21:00 22:00 23:00 23:43 Pulse 110 125 140 Resp 30 32 34 40 B/P (MAP) 112/60 (77) 100/56 (71) 90/54 (66) Pulse Ox 97 98 97 93 O2 Delivery Nasal Cannula Nasal Cannula Nasal Cannula Nasal Cannula O2 Flow Rate 3.0 3.0 3.0 3.0 09/05/19 09/05/19/09/05/19 00:00 00:00 00:18 01:00 Temp 98.5 98.5 Pulse 125 100 Resp 23 22 22 B/P (MAP) 168/89 (115) 84/56 (65) Pulse Ox 98 98 100 O2 Delivery Nasal Cannula Nasal Cannula Nasal Cannula Nasal Cannula O2 Flow Rate 5.0 5.0 5.0 5.0 09/05/19 09/05/19 09/05/19 09/05/19 02:00 03:00 04:00 04:00 Temp 97.6 97.6 Pulse 95 104 94 Resp 24 26 21 B/P (MAP) 93/54 (67) 113/70 (84) 97/55 (69) Pulse Ox 100 99 98 O2 Delivery Nasal Cannula Nasal Cannula Nasal Cannula Nasal Cannula O2 Flow Rate 5.0 5.0 3.0 5.0 09/05/19 09/05/19 09/05/19 09/05/19 05:00 06:00 06:25 06:55 Pulse 100 124 Resp 24 38 29 22 B/P (MAP) 93/53 (66) 166/85 (112) Pulse Ox 97 95 98 100 O2 Delivery Nasal Cannula Nasal Cannula Nasal Cannula Nasal Cannula O2 Flow Rate 3.0 3.0 3.0 3.0 09/05/19 09/05/19 09/05/19 07:00 08:00 08:18 Temp 98.4 98.4 Pulse 113 93 Resp 22 16 B/P (MAP) 119/60 (79) 95/48 (64) Pulse Ox 100 100 O2 Delivery Nasal Cannula Nasal Cannula Nasal Cannula O2 Flow Rate 3.0 3.0 3.0 Intake and Output 09/04/19 09/04/19 09/05/19 15:00 23:00 07:00 Intake Total 775 ml 952.73 ml 1726.5 ml Output Total 2685 ml 950 ml 700 ml Balance -1910 ml 2.73 ml 1026.5 ml ABI AHN MD September 05, 2019 10:10
--- NOTE | 2019-09-05 10:39 | PDOC ---
[facility] PROGRESS NOTE Chief Complaint Chief Complaint Acute hypoxic Respiratory failure requiring mechanical ventilation (now extubated for several days but still with tracheostomy) Tracheostomy bilateral pleural effusions/pulm edema Sepsis Severe Acute gallstone pancreatitis (not a surgical candidate at this time) with necrosis Acute kidney failure now requiring dialysis Salpingitis Gallstones (Calculus of gallbladder with acute cholecystitis without obstruc tion) HTN Leukocytosis Hypoxia Uterine fibroid Intractable pain Intractable nausea Covid 19 negative. Acute on chronic anemia EEG: No seizure activityFever - better currently - intermittent could be from underlying pancreatitis blood cults 08/21 - neg so far ? Ileus with vomiting Abd distention - U/S and CT reviewed s/p 0.4 L of opaque, debris-containing ascites was removed 08/23 Acute pancreatitis with persistent necrosis - 08/14 status post KAYLIN drain placement + C paropsilosis. s/p additional drains 08/25 Anemia - S/p PRBCs Cholelithiasis with thickening of the gallbladder wall. Leucocytosis improving JUANA, hyperkalemia, Metabolic acidosis off dialysis Acute hypoxic resp failure ,bilateral pleural effusion and atelectasis hypocalcemia Prediabetes HTN s/p trach ESRD on HD Hyperglycemia History of Present Illness History of Present Illness 09/05/2019 Patient seen and examined in the ICU She had an episode yesterday of tachycardia and severe agitation we gave her some Ativan After that she seemed to have stroke symptoms but now that the Ativan has wore off her stroke symptoms have resolved She is a little more calm this morning but even just talking to her gets her agitated and anxious She is currently on TPN and Precedex She has NG to suction She has Lind to bedside drainage She has SCDs Discussed with RN Reviewed chart Remains very critically ill 09/04/2019 Patient seen and examined in the ICU She is up in bed sleeping awoke I really do not understand what she is saying to her but she is trying to talk Chart reviewed Discussed with RN She is on IV Zosyn IV micafungin and IV daptomycin Also getting TPN Sedated with Precedex She also gets Dilaudid every 4 She remains critically ill 09/03/2019 Patient seen and examined in the ICU She is up in the bed but extremely weak and frail Ask if there is "anything we can do" I explained to her that we will do everything we can but that she is very ill and we need to give it time Reviewed with nurse Reviewed chart She is on IV micafungin September and meropenem She is on IV TPN She is also receiving Precedex for sedation She has NG to suction and KAYLIN drain x5 Lind to bedside drainage Extremely critically ill 09/02/2019 Patient seen and examined in the ICU She is resting comfortably but sedated Has O2 per nasal cannula Tracheostomy is clean She is on Precedex TPN and has an NG to suction Chart reviewed 09/01/2019 Patient seen and examined in the ICU She now has a speaking valve in her trach and is able to talk She is extremely weak and shaky Chart reviewed discussed with RN 08/31/2019 Patient seen and examined in the ICU She is up in the chair with O2 via trach shield Extremely anxious Cannot talk but is trying to write things to me although I cannot understand what she is writing Discussed with RN Chart reviewed Still on IV TPN Still extremely ill 08/30/2019 Patient seen and examined in the ICU She now has a trach shield Pleasantly confused but sedated with Precedex Chart reviewed Discussed with RN She has IV TPN Still very critically ill 08/29/2019 Patient seen and examined She remains on the vent but spontaneous respirations with 20 of pressure support and 30% FiO2 He still has NG to suction Appears extremely ill and weak and confused Has IV TPN Precedex antibiotics Lind is to bedside drainage She has SCDs and ProCare boots She is on IV meropenem and daptomycin and micafungin Chart reviewed Discussed with RN Patient is still critically ill Ms Diaz is a 48yo F w/ PMHx HTN, prediabetes who presented to the emergency room with complaints of abdominal pain on 07/04/2019. Found with Lipase 11140, AST 401, ALT 249, Bilirubin 1.4. CT abdomen confirms pancreatic inflammation, peripancreatic fluid and inflammatory changes around the pancreas consistent with pancreatitis. Cholelithiasis and 1.4cm uterine fibroid as well as possible left salpingitis. Admitted for further care GI, General surgery, ID, Pulm consulted. 07/04: PICC placed per IR. Renal US negative. Started on levophed. Repeat CT abdomen w/ necrosis; 07/05: Dialysis catheter per nephrology; 07/06: On BiPAP; 07/07: BiPAP, dialysis; 07/08: Overnight Tmax 101.7 , still on BiPAP FiO2 40%, still on low dose Levophed gtt, TPN initiated. On dialysis 07/24: Tracheostomy; 07/30: S/p tracheostomy on vent spontaneous respirations with 5 of pressure support 35% FiO2, rectal tube and a Lind, off pressors; 08/01:Still on vent via trach. Removed PICC and CVC LIJ and replaced. CT chest/abd/pelvis with bilateral pleural effusion and ascites. 08/02: Renal function stable. Still on vent. More interactive today. Miming wish for food. Plan discussed for thoracentesis/paracentesis with daughters today. They were under impression patient was doing worse due to a miscommunication which has been clarified over the phone. 4.3L removed. 08/04: Febrile overnight 101.8F. More interactive, still on vent. Asking for ice by miming; 08/05: Afebrile overnight. TMax last 24 hours 100.6F. Hb 7.1. Interactive when awake. 08/09: Transfusion 1u PRBC (6U total since admit) 08/10-08/13: TPN and precedex, vent. 08/14: Tmax 101F overnight. Hb 8.2. HD cath out since 08/11. Alert. On vent SIMV 35% FiO2. Surgery: ex-lap, no ronel or pancreatic necrosectomy 2/2 profound inflammation. 08/15: Seen POD #1. Afebrile overnight. BUN 62. CBC WNL today.Remains on vent via trach, TPN. Able to point today and indicate she wishes her daughters and Jamaal to be involved in her care. 08/16: Hb 7.4, Na 151. Remains on vent via trach, TPN. off HD for now. Not tolerating trach shield well. 08/17: Negative US for UE DVT. More relaxed today. Has some increase in UOP. Tolerating vent well. She is requesting to eat and drink via writing. T max 100F 24 hours ago, but 101F at 1200. Right [facility]ICC [facility]. [facility]18: Na 153 today. Good UOP. Tmax 101F at 1200 on 08/17. She becomes a bit an xious and did not sleep much last night, wishes to try to sleep this morning 08/19: Able to speak well with speaking valve today. Na 153, K2.9, Mg 1.8, Cr 1. 100.4F axillary temp overnight. Asking for food. 08/20: Afebrile overnight. ABG with pH 7.27/75/123. Hb 7.1. Na 153. CHILD AND FAMILY THERAPIST settings decreased 08/21: No acute events reported overnight, case discussed with nursing staff deidre ent in no acute distress no complaints during my visit 08/22: Patient responding to verbal stimuli. She is saturating well and not requiring ventilation support, no acute events reported overnight seems to be slowly improving 08/23: Patient requiring transfusion of packed red blood cells due to anemia, no evidence of acute bleeding, appreciate GI case consultant recommendations 08/24: Patient required ventilatory support given that she desaturated, she is lying in bed in mild distress, case discussed with nursing staff, no evidence of bleeding, h an h noted. 08/25: Underwent IR procedure as follows BRIEF OPERATIVE NOTE Pre-Op Diagnosis Pancreatitis with pseudocysts, suspected infection Post-Op Diagnosis same Procedure Performed CT abdominal Drains x 3 Surgeon Tesfaye Anesthesia Type: Conscious Sedation Findings 3 abdominal drains, 14F, with turbid pancreatic fluid and necrotic debris in each. Complications No immediate 08/26: Patient today somewhat restless and having bilious secretions from ET tube, imaging studies ordered, discussed with case consultant. Pretty poor prognosis, hopefully is not a fistula, poor surgical candidate. 08/27: Imaging with no acute events, she seems more stable today compared to yesterday. Encouraged as much activity as possible patient at high risk for severe depression. Vitals/I&O Vitals/I&O: Vital Signs Date Time Temp Pulse Resp B/P (MAP) Pulse Ox O2 Delivery O2 Flow Rate FiO2 09/05/19 08:18 Nasal Cannula 3.0 09/05/19 08:00 93 16 95/48 (64) 100 09/05/19 07:00 98.4 98.4 I & O 09/04/19 09/04/19 09/05/19 15:00 23:00 07:00 Intake Total 775 ml 952.73 ml 1726.5 ml Output Total 2685 ml 950 ml 700 ml Balance -1910 ml 2.73 ml 1026.5 ml Physical Exam Physical Exam: GENERAL: Semi-sedated ,comfortable HEENT: oral cavity dry, NGT NECK: Trach with speaking valve LUNGS: no rhonchi HEART: S1, S2, regular ABDOMEN: mod Distended, hypoactive BS, tender, + drains x 3 : Lind (08/01) EXTREMITIES: Generalized edema, improving, no cyanosis, SCDs bilaterally SKIN: Warm and dry. No generalized rash. QC SCIENTIST: Very weak PICC(08/17) clean General: moderate distress Heart: Regular rate, Normal S1, Normal S2, No murmurs, Gallops Lungs: Wheezing, Other (decrease bs) Abdomen: Soft, No tenderness, Other (drains in place) Extremities: No clubbing, No cyanosis, No edema, Normal pulses, No tenderness/swelling Skin: Other (warm, dry) Labs Labs: Laboratory Tests Test 09/04/19 12:00 09/04/19 17:46 09/04/19 23:47 09/05/19 05:56 Glucose (Fingerstick) 225 mg/dL (70-99) 145 mg/dL (70-99) 240 mg/dL (70-99) 162 mg/dL (70-99) Test 09/05/19 06:00 White Blood Count 13.8 x10^3/uL (4.0-11.0) Red Blood Count 2.81 x10^6/uL (3.50-5.40) Hemoglobin 7.9 g/dL (12.0-15.5) Hematocrit 24.9 % (36.0-47.0) Mean Corpuscular Volume 89 fL (79-100) Mean Corpuscular Hemoglobin 28 pg (25-35) Mean Corpuscular Hemoglobin Concent 32 g/dL (31-37) Red Cell Distribution Width 18.1 % (11.5-14.5) Platelet Count 486 x10^3/uL (140-400) Neutrophils (%) (Auto) 72 % (31-73) Lymphocytes (%) (Auto) 21 % (24-48) Monocytes (%) (Auto) 6 % (0-9) Eosinophils (%) (Auto) 1 % (0-3) Basophils (%) (Auto) 0 % (0-3) Neutrophils # (Auto) 10.0 x10^3/uL (1.8-7.7) Lymphocytes # (Auto) 2.9 x10^3/uL (1.0-4.8) Monocytes # (Auto) 0.8 x10^3/uL (0.0-1.1) Eosinophils # (Auto) 0.1 x10^3/uL (0.0-0.7) Basophils # (Auto) 0.0 x10^3/uL (0.0-0.2) Sodium Level 141 mmol/L (136-145) Potassium Level 4.8 mmol/L (3.5-5.1) Chloride Level 99 mmol/L (98-107) Carbon Dioxide Level 42 mmol/L (21-32) Anion Gap 0 (6-14) Blood Urea Nitrogen 26 mg/dL (7-20) Creatinine 0.6 mg/dL (0.6-1.0) Estimated GFR (Cockcroft-Gault) 106.3 Glucose Level 164 mg/dL (70-99) Calcium Level 9.3 mg/dL (8.5-10.1) Phosphorus Level 4.3 mg/dL (2.6-4.7) Magnesium Level 2.0 mg/dL (1.8-2.4) Triglycerides Level 221 mg/dL (0-150) Assessment and Plan Assessmemt and Plan Problems Medical Problems: (1) Acute pancreatitis Status: Acute (2) Cholelithiasis Status: Acute Acute hypoxic Respiratory failure requiring mechanical ventilation (on vent since 07/10) Tracheostomy bilateral pleural effusions/pulm edema Sepsis Severe Acute gallstone pancreatitis (not a surgical candidate at this time) with necrosis Acute kidney failure now requiring dialysis Salpingitis Gallstones (Calculus of gallbladder with acute cholecystitis without obstruction) HTN Leukocytosis Hypoxia Uterine fibroid Intractable pain Intractable nausea Covid 19 negative. Acute on chronic anemia EEG: No seizure activityFever - better currently - intermittent could be from underlying pancreatitis blood cults 08/21 - neg so far ? Ileus with vomiting Abd distention - U/S and CT reviewed s/p 0.4 L of opaque, debris-containing ascites was removed 08/23 Acute pancreatitis with persistent necrosis - 08/14 status post KAYLIN drain placement + C paropsilosis. s/p additional drains 08/25 Anemia - S/p PRBCs Cholelithiasis with thickening of the gallbladder wall. Leucocytosis improving JUANA, hyperkalemia, Metabolic acidosis off dialysis Acute hypoxic resp failure ,bilateral pleural effusion and atelectasis hypocalcemia Prediabetes HTN s/p trach ESRD on HD Hyperglycemia Plan ICU monitoring Wound care Hold off on Ativan for now as she gets too weak with it Humidified O2 via nasal cannula for now but we can use trach shield as backup NG suctioning Nebulizers Continue IV antibiotics and micafungin Sedation with Precedex TPN protocol Continue Lind to bedside drainage Tracheostomy care Hope to eventually move towards decannulation (we have a speaking valve for now) Trend labs Appreciate subspecialist input She is critically ill Prognosis is extremely guarded at best still Total time 31-minute Comment Review of Relevant I have reviewed the following items kolby (where applicable) has been applied. Medications: Current Medications Medications (Trade) Dose Ordered Sig/Yvon Route PRN Reason Start Time Stop Time Status Last Admin Dose Admin Potassium Chloride 90 meq/ Magnesium Sulfate 20 meq/ Multivitamins 10 ml/Chromium/ Copper/Manganese/ Seleni/Zn 1 ml/ Insulin Human Regular 15 unit/ Total Parenteral Nutrition/Amino Acids/Dextrose/ Fat Emulsion Intravenous 1,890 ml @ 78.75 mls/ hr TPN CONT IV 09/04/19 22:00 09/05/19 21:59 09/04/19 21:34 Metoprolol Tartrate (Lopressor Vial) 5 mg 1X ONCE IVP 09/04/19 15:15 09/04/19 15:16 DC 09/04/19 15:31 Lorazepam (Ativan Inj) 2 mg 1X ONCE IVP 09/04/19 15:15 09/04/19 15:16 DC 09/04/19 15:30 Enoxaparin Sodium (Lovenox 40mg Syringe) 40 mg Q24H SQ 09/04/19 17:00 09/04/19 17:48 Hemodynamically unstable?: No Is patient in severe pain?: No Is NPO status required?: Yes BEBO KIRBY III DO September 05, 2019 10:39
[2019-09-05] MEDS: MICAFUNGIN 100 MG in IV DEXTROSE 5% 100ML 100 ML IV SCH (11:07)
[2019-09-05] MEDS: IV NORMAL SALINE 1000ML BAG 1,000 ML IV SCH (11:41)
--- NOTE | 2019-09-05 11:48 | PDOC ---
SURGICAL PROGRESS NOTE Subjective Steven for Dr Servin awake, anxious, trying to talk,having problems enunciating Vital Signs Vital Signs Date Time Temp Pulse Resp B/P (MAP) Pulse Ox O2 Delivery O2 Flow Rate FiO2 09/05/19 10:57 150 35 156/62 (93) 95 Nasal Cannula 3.0 09/05/19 07:00 98.4 98.4 I&O Intake and Output 09/05/19 07:00 Intake Total 3454.23 ml Output Total 4335 ml Balance -880.77 ml IV Total 3454.23 ml Output Urine Total 3855 ml Drainage Total 480 ml PATIENT HAS A ROSARIO: Yes (accurate I and O ) General: Alert Abdomen: Soft, Other (one drain in place) Labs Laboratory Tests Test 09/03/19 17:46 09/04/19 00:41 09/04/19 07:00 09/04/19 12:00 Glucose (Fingerstick) 144 mg/dL (70-99) 177 mg/dL (70-99) 225 mg/dL (70-99) White Blood Count 14.2 x10^3/uL (4.0-11.0) Red Blood Count 2.87 x10^6/uL (3.50-5.40) Hemoglobin 8.3 g/dL (12.0-15.5) Hematocrit 25.6 % (36.0-47.0) Mean Corpuscular Volume 89 fL (79-100) Mean Corpuscular Hemoglobin 29 pg (25-35) Mean Corpuscular Hemoglobin Concent 32 g/dL (31-37) Red Cell Distribution Width 18.1 % (11.5-14.5) Platelet Count 497 x10^3/uL (140-400) Neutrophils (%) (Auto) 68 % (31-73) Lymphocytes (%) (Auto) 25 % (24-48) Monocytes (%) (Auto) 6 % (0-9) Eosinophils (%) (Auto) 1 % (0-3) Basophils (%) (Auto) 0 % (0-3) Neutrophils # (Auto) 9.6 x10^3/uL (1.8-7.7) Lymphocytes # (Auto) 3.5 x10^3/uL (1.0-4.8) Monocytes # (Auto) 0.9 x10^3/uL (0.0-1.1) Eosinophils # (Auto) 0.2 x10^3/uL (0.0-0.7) Basophils # (Auto) 0.0 x10^3/uL (0.0-0.2) Sodium Level 140 mmol/L (136-145) Potassium Level 4.5 mmol/L (3.5-5.1) Chloride Level 99 mmol/L (98-107) Carbon Dioxide Level 40 mmol/L (21-32) Anion Gap 1 (6-14) Blood Urea Nitrogen 26 mg/dL (7-20) Creatinine 0.5 mg/dL (0.6-1.0) Estimated GFR (Cockcroft-Gault) 131.1 BUN/Creatinine Ratio 52 (6-20) Glucose Level 127 mg/dL (70-99) Calcium Level 9.2 mg/dL (8.5-10.1) Total Bilirubin 0.4 mg/dL (0.2-1.0) Aspartate Amino Transf (AST/SGOT) 29 U/L (15-37) Alanine Aminotransferase (ALT/SGPT) 27 U/L (14-59) Alkaline Phosphatase 109 U/L (46-116) Total Protein 6.7 g/dL (6.4-8.2) Albumin 2.2 g/dL (3.4-5.0) Albumin/Globulin Ratio 0.5 (1.0-1.7) Test 09/04/19 17:46 09/04/19 23:47 09/05/19 05:56 09/05/19 06:00 Glucose (Fingerstick) 145 mg/dL (70-99) 240 mg/dL (70-99) 162 mg/dL (70-99) White Blood Count 13.8 x10^3/uL (4.0-11.0) Red Blood Count 2.81 x10^6/uL (3.50-5.40) Hemoglobin 7.9 g/dL (12.0-15.5) Hematocrit 24.9 % (36.0-47.0) Mean Corpuscular Volume 89 fL (79-100) Mean Corpuscular Hemoglobin 28 pg (25-35) Mean Corpuscular Hemoglobin Concent 32 g/dL (31-37) Red Cell Distribution Width 18.1 % (11.5-14.5) Platelet Count 486 x10^3/uL (140-400) Neutrophils (%) (Auto) 72 % (31-73) Lymphocytes (%) (Auto) 21 % (24-48) Monocytes (%) (Auto) 6 % (0-9) Eosinophils (%) (Auto) 1 % (0-3) Basophils (%) (Auto) 0 % (0-3) Neutrophils # (Auto) 10.0 x10^3/uL (1.8-7.7) Lymphocytes # (Auto) 2.9 x10^3/uL (1.0-4.8) Monocytes # (Auto) 0.8 x10^3/uL (0.0-1.1) Eosinophils # (Auto) 0.1 x10^3/uL (0.0-0.7) Basophils # (Auto) 0.0 x10^3/uL (0.0-0.2) Sodium Level 141 mmol/L (136-145) Potassium Level 4.8 mmol/L (3.5-5.1) Chloride Level 99 mmol/L (98-107) Carbon Dioxide Level 42 mmol/L (21-32) Anion Gap 0 (6-14) Blood Urea Nitrogen 26 mg/dL (7-20) Creatinine 0.6 mg/dL (0.6-1.0) Estimated GFR (Cockcroft-Gault) 106.3 Glucose Level 164 mg/dL (70-99) Calcium Level 9.3 mg/dL (8.5-10.1) Phosphorus Level 4.3 mg/dL (2.6-4.7) Magnesium Level 2.0 mg/dL (1.8-2.4) Triglycerides Level 221 mg/dL (0-150) Test 09/05/19 11:05 Glucose (Fingerstick) 236 mg/dL (70-99) Laboratory Tests Test 09/04/19 12:00 09/04/19 17:46 09/04/19 23:47 09/05/19 05:56 Glucose (Fingerstick) 225 mg/dL (70-99) 145 mg/dL (70-99) 240 mg/dL (70-99) 162 mg/dL (70-99) Test 09/05/19 06:00 09/05/19 11:05 White Blood Count 13.8 x10^3/uL (4.0-11.0) Red Blood Count 2.81 x10^6/uL (3.50-5.40) Hemoglobin 7.9 g/dL (12.0-15.5) Hematocrit 24.9 % (36.0-47.0) Mean Corpuscular Volume 89 fL (79-100) Mean Corpuscular Hemoglobin 28 pg (25-35) Mean Corpuscular Hemoglobin Concent 32 g/dL (31-37) Red Cell Distribution Width 18.1 % (11.5-14.5) Platelet Count 486 x10^3/uL (140-400) Neutrophils (%) (Auto) 72 % (31-73) Lymphocytes (%) (Auto) 21 % (24-48) Monocytes (%) (Auto) 6 % (0-9) Eosinophils (%) (Auto) 1 % (0-3) Basophils (%) (Auto) 0 % (0-3) Neutrophils # (Auto) 10.0 x10^3/uL (1.8-7.7) Lymphocytes # (Auto) 2.9 x10^3/uL (1.0-4.8) Monocytes # (Auto) 0.8 x10^3/uL (0.0-1.1) Eosinophils # (Auto) 0.1 x10^3/uL (0.0-0.7) Basophils # (Auto) 0.0 x10^3/uL (0.0-0.2) Sodium Level 141 mmol/L (136-145) Potassium Level 4.8 mmol/L (3.5-5.1) Chloride Level 99 mmol/L (98-107) Carbon Dioxide Level 42 mmol/L (21-32) Anion Gap 0 (6-14) Blood Urea Nitrogen 26 mg/dL (7-20) Creatinine 0.6 mg/dL (0.6-1.0) Estimated GFR (Cockcroft-Gault) 106.3 Glucose Level 164 mg/dL (70-99) Calcium Level 9.3 mg/dL (8.5-10.1) Phosphorus Level 4.3 mg/dL (2.6-4.7) Magnesium Level 2.0 mg/dL (1.8-2.4) Triglycerides Level 221 mg/dL (0-150) Glucose (Fingerstick) 236 mg/dL (70-99) Problem List Problems Medical Problems: (1) Acute pancreatitis Status: Acute (2) Cholelithiasis Status: Acute Assessment/Plan acute pancreatitis anxiety d/w Ana M LE will change pain meds to Fentanyl in hopes of managing pain with less sedation continue supportive care MARV WYNNE MD September 05, 2019 11:48
--- NOTE | 2019-09-05 12:26 | PDOC ---
Objective: Objective: D/w [employer] earlier - ?video later this week Nurse present in room - tachycardic, "stuporous" this morning, less bilious output, NG replaced. On TPN, IV PPI. Vital Signs: Vital Signs Date Time Temp Pulse Resp B/P (MAP) Pulse Ox O2 Delivery O2 Flow Rate FiO2 09/05/19 10:57 150 35 156/62 (93) 95 Nasal Cannula 3.0 09/05/19 07:00 98.4 98.4 Labs: Laboratory Tests Test 09/04/19 17:46 09/04/19 23:47 09/05/19 05:56 09/05/19 06:00 Glucose (Fingerstick) 145 mg/dL 240 mg/dL 162 mg/dL White Blood Count 13.8 x10^3/uL Red Blood Count 2.81 x10^6/uL Hemoglobin 7.9 g/dL Hematocrit 24.9 % Mean Corpuscular Volume 89 fL Mean Corpuscular Hemoglobin 28 pg Mean Corpuscular Hemoglobin Concent 32 g/dL Red Cell Distribution Width 18.1 % Platelet Count 486 x10^3/uL Neutrophils (%) (Auto) 72 % Lymphocytes (%) (Auto) 21 % Monocytes (%) (Auto) 6 % Eosinophils (%) (Auto) 1 % Basophils (%) (Auto) 0 % Neutrophils # (Auto) 10.0 x10^3/uL Lymphocytes # (Auto) 2.9 x10^3/uL Monocytes # (Auto) 0.8 x10^3/uL Eosinophils # (Auto) 0.1 x10^3/uL Basophils # (Auto) 0.0 x10^3/uL Sodium Level 141 mmol/L Potassium Level 4.8 mmol/L Chloride Level 99 mmol/L Carbon Dioxide Level 42 mmol/L Anion Gap 0 Blood Urea Nitrogen 26 mg/dL Creatinine 0.6 mg/dL Estimated GFR (Cockcroft-Gault) 106.3 Glucose Level 164 mg/dL Calcium Level 9.3 mg/dL Phosphorus Level 4.3 mg/dL Magnesium Level 2.0 mg/dL Triglycerides Level 221 mg/dL Test 09/05/19 11:05 Glucose (Fingerstick) 236 mg/dL BLOOD CULTURE Preliminary NO GROWTH AFTER 1 DAY Imaging: KUB 09/04 IMPRESSION: Enteric tube terminates in the stomach. CXR 09/04 Impression: Bilateral perihilar infiltrates with small bilateral pleural effusions, left greater than right. PE: GEN: NAD HEENT: trach/speaking valve LUNGS: tachypneic HEART: tachycardic ABD: distended, soft NEURO/PSYCH: anxious A/P: Gallstone pancreatitis, MOSF -- Continue support. Hemodynamically unstable?: No Is patient in severe pain?: No Is NPO status required?: Yes CYNDEE FALCON September 05, 2019 12:25
--- NOTE | 2019-09-05 13:06 | NUR ---
SS following up with discharge planning. SS reviewed pt chart and discussed with pt RN. Pt trach capped for 48 hours now. Pt now on nasal cannula oxygen. Pt remains NPO. Pt has NG tube and is currently on TPN. Pt on IV antibiotics times three. Pt has three KAYLIN drains. Pt walked halls with PT/OT. SS will continue to follow for discharge planning.
[2019-09-05] MEDS: TPN PER PHARMACY MC PRN (14:11)
--- NOTE | 2019-09-05 14:35 | NUR ---
Pharmacy TPN Dosing Note S: SCOTT AVILA is a 48 year old F Currently receiving Central Continuous TPN started 07/06/19 B:Pertinent PMH: Necrotizing pancreatitis Height: 5 feet, 8 inches Weight: 90.004852 kg Current diet: NPO LABS: Sodium: 141 Potassium: 4.8 Chloride: 99 Calcium: 9.2 Corrected Calcium: 10.64 Magnesium: 2.0 CO2: 38 SCr: 0.6 Glucose: 164 Albumin: 2.2 AST: 50 ALT: 50 TPN FORMULA: TPN TYPE: Central Continuous AMINO ACIDS: 90 gm DEXTROSE: 250 gm LIPIDS: 30 gm SODIUM CHLORIDE: - mEq SODIUM ACETATE: - mEq SODIUM PHOSPHATE: - mmol POTASSIUM CHLORIDE: 90 mEq POTASSIUM ACETATE: - mEq POTASSIUM PHOSPHATE: - mmol MAGNESIUM: 20 mEq CALCIUM: - mEq INSULIN: 15 units MULTIPLE VITAMIN: 10 ml TRACE ELEMENTS: 1 ml(s) TPN PLAN: decrease NACL TO 50 MEQ/decrease KCL TO 25 MEQ R: Continue TPN Will monitor electrolytes, glucose, and tolerance to TPN. KRISTIAN APODACA [facility], 09/05/19 0064
--- NOTE | 2019-09-05 16:30 | NUR ---
pt was unable to work with physical therapy today due to mentally being stuperous. pt will do ankle pumps while in bed when requested to do so. pt having trouble dealing with anxiety and keeps asking for medication "to put me to sleep". frequent oral care being performed. trach remains capped.
[2019-09-05] MEDS: ENOXAPARIN 40 MG/0.4 ML SYRINGE. SQ SCH (17:05)
[2019-09-05] MEDS: fentaNYL PF VIAL 100 MCG/2 ML VIAL IVP PRN ×2 (17:13→21:00)
--- NOTE | 2019-09-05 17:14 | PDOC ---
PULMONARY PROGRESS NOTES Subjective Patient intubated on 07/10 , s/p trach 4/6, awake alert follows commands, is weak, small trach secretion, trach has been capped over 48 hrs placed on cap trach, at times patient having some respiratory distress s/p left tap 08/29 , 3 litres removed Vitals Vital Signs Date Time Temp Pulse Resp B/P (MAP) Pulse Ox O2 Delivery O2 Flow Rate FiO2 09/05/19 16:00 127 36 99 Nasal Cannula 5.0 09/05/19 15:00 97.9 154/78 (103) 97.9 ROS: No Chest Pain, No Abdominal Pain, No Increase Cough General: Alert, No acute distress HEENT: Other (nc at perrl neck trach site ok no lad no thyromegaly) Lungs: Wheezing, Other (decrease bs) Cardiovascular: S1, S2 Abdomen: Soft, Non-tender, Other (distended) Neuro Exam: Alert Extremities: Other (+3 generalized edema ) Skin: Warm, Dry Labs Laboratory Tests Test 09/03/19 17:46 09/04/19 00:41 09/04/19 07:00 09/04/19 12:00 Glucose (Fingerstick) 144 mg/dL (70-99) 177 mg/dL (70-99) 225 mg/dL (70-99) White Blood Count 14.2 x10^3/uL (4.0-11.0) Red Blood Count 2.87 x10^6/uL (3.50-5.40) Hemoglobin 8.3 g/dL (12.0-15.5) Hematocrit 25.6 % (36.0-47.0) Mean Corpuscular Volume 89 fL (79-100) Mean Corpuscular Hemoglobin 29 pg (25-35) Mean Corpuscular Hemoglobin Concent 32 g/dL (31-37) Red Cell Distribution Width 18.1 % (11.5-14.5) Platelet Count 497 x10^3/uL (140-400) Neutrophils (%) (Auto) 68 % (31-73) Lymphocytes (%) (Auto) 25 % (24-48) Monocytes (%) (Auto) 6 % (0-9) Eosinophils (%) (Auto) 1 % (0-3) Basophils (%) (Auto) 0 % (0-3) Neutrophils # (Auto) 9.6 x10^3/uL (1.8-7.7) Lymphocytes # (Auto) 3.5 x10^3/uL (1.0-4.8) Monocytes # (Auto) 0.9 x10^3/uL (0.0-1.1) Eosinophils # (Auto) 0.2 x10^3/uL (0.0-0.7) Basophils # (Auto) 0.0 x10^3/uL (0.0-0.2) Sodium Level 140 mmol/L (136-145) Potassium Level 4.5 mmol/L (3.5-5.1) Chloride Level 99 mmol/L (98-107) Carbon Dioxide Level 40 mmol/L (21-32) Anion Gap 1 (6-14) Blood Urea Nitrogen 26 mg/dL (7-20) Creatinine 0.5 mg/dL (0.6-1.0) Estimated GFR (Cockcroft-Gault) 131.1 BUN/Creatinine Ratio 52 (6-20) Glucose Level 127 mg/dL (70-99) Calcium Level 9.2 mg/dL (8.5-10.1) Total Bilirubin 0.4 mg/dL (0.2-1.0) Aspartate Amino Transf (AST/SGOT) 29 U/L (15-37) Alanine Aminotransferase (ALT/SGPT) 27 U/L (14-59) Alkaline Phosphatase 109 U/L (46-116) Total Protein 6.7 g/dL (6.4-8.2) Albumin 2.2 g/dL (3.4-5.0) Albumin/Globulin Ratio 0.5 (1.0-1.7) Test 09/04/19 17:46 09/04/19 23:47 09/05/19 05:56 09/05/19 06:00 Glucose (Fingerstick) 145 mg/dL (70-99) 240 mg/dL (70-99) 162 mg/dL (70-99) White Blood Count 13.8 x10^3/uL (4.0-11.0) Red Blood Count 2.81 x10^6/uL (3.50-5.40) Hemoglobin 7.9 g/dL (12.0-15.5) Hematocrit 24.9 % (36.0-47.0) Mean Corpuscular Volume 89 fL (79-100) Mean Corpuscular Hemoglobin 28 pg (25-35) Mean Corpuscular Hemoglobin Concent 32 g/dL (31-37) Red Cell Distribution Width 18.1 % (11.5-14.5) Platelet Count 486 x10^3/uL (140-400) Neutrophils (%) (Auto) 72 % (31-73) Lymphocytes (%) (Auto) 21 % (24-48) Monocytes (%) (Auto) 6 % (0-9) Eosinophils (%) (Auto) 1 % (0-3) Basophils (%) (Auto) 0 % (0-3) Neutrophils # (Auto) 10.0 x10^3/uL (1.8-7.7) Lymphocytes # (Auto) 2.9 x10^3/uL (1.0-4.8) Monocytes # (Auto) 0.8 x10^3/uL (0.0-1.1) Eosinophils # (Auto) 0.1 x10^3/uL (0.0-0.7) Basophils # (Auto) 0.0 x10^3/uL (0.0-0.2) Sodium Level 141 mmol/L (136-145) Potassium Level 4.8 mmol/L (3.5-5.1) Chloride Level 99 mmol/L (98-107) Carbon Dioxide Level 42 mmol/L (21-32) Anion Gap 0 (6-14) Blood Urea Nitrogen 26 mg/dL (7-20) Creatinine 0.6 mg/dL (0.6-1.0) Estimated GFR (Cockcroft-Gault) 106.3 Glucose Level 164 mg/dL (70-99) Calcium Level 9.3 mg/dL (8.5-10.1) Phosphorus Level 4.3 mg/dL (2.6-4.7) Magnesium Level 2.0 mg/dL (1.8-2.4) Triglycerides Level 221 mg/dL (0-150) Test 09/05/19 11:05 Glucose (Fingerstick) 236 mg/dL (70-99) Laboratory Tests Test 09/04/19 17:46 09/04/19 23:47 09/05/19 05:56 09/05/19 06:00 Glucose (Fingerstick) 145 mg/dL (70-99) 240 mg/dL (70-99) 162 mg/dL (70-99) White Blood Count 13.8 x10^3/uL (4.0-11.0) Red Blood Count 2.81 x10^6/uL (3.50-5.40) Hemoglobin 7.9 g/dL (12.0-15.5) Hematocrit 24.9 % (36.0-47.0) Mean Corpuscular Volume 89 fL (79-100) Mean Corpuscular Hemoglobin 28 pg (25-35) Mean Corpuscular Hemoglobin Concent 32 g/dL (31-37) Red Cell Distribution Width 18.1 % (11.5-14.5) Platelet Count 486 x10^3/uL (140-400) Neutrophils (%) (Auto) 72 % (31-73) Lymphocytes (%) (Auto) 21 % (24-48) Monocytes (%) (Auto) 6 % (0-9) Eosinophils (%) (Auto) 1 % (0-3) Basophils (%) (Auto) 0 % (0-3) Neutrophils # (Auto) 10.0 x10^3/uL (1.8-7.7) Lymphocytes # (Auto) 2.9 x10^3/uL (1.0-4.8) Monocytes # (Auto) 0.8 x10^3/uL (0.0-1.1) Eosinophils # (Auto) 0.1 x10^3/uL (0.0-0.7) Basophils # (Auto) 0.0 x10^3/uL (0.0-0.2) Sodium Level 141 mmol/L (136-145) Potassium Level 4.8 mmol/L (3.5-5.1) Chloride Level 99 mmol/L (98-107) Carbon Dioxide Level 42 mmol/L (21-32) Anion Gap 0 (6-14) Blood Urea Nitrogen 26 mg/dL (7-20) Creatinine 0.6 mg/dL (0.6-1.0) Estimated GFR (Cockcroft-Gault) 106.3 Glucose Level 164 mg/dL (70-99) Calcium Level 9.3 mg/dL (8.5-10.1) Phosphorus Level 4.3 mg/dL (2.6-4.7) Magnesium Level 2.0 mg/dL (1.8-2.4) Triglycerides Level 221 mg/dL (0-150) Test 09/05/19 11:05 Glucose (Fingerstick) 236 mg/dL (70-99) Medications Active Scripts Medications Dose Route/Sig Max Daily Dose Days Date Category Bisoprolol Fumarate 5 Mg Tablet 10 Mg PO DAILY 07/04/19 Reported Comments CXR reviewed. Impression . IMPRESSION: 1. Acute hypoxemic respiratory failure secondary to ARDS status post trach, 2. Gallstone pancreatitis 3. Severe metabolic acidosis.stable 4. Acute kidney injury-stable, Off HD-- continue to improve 5. Acute gallstone pancreatitis. 6. Hypoalbuminemia. 7. Moderate persistent effusions, s/p left thora 08/29 8. Fever- Per ID, per surgery--resolved 9. Chronic anemia 10. Covid 19 testing negative 11. Moderate to large ascites-S/P paracentisis 12.S/P paracentisis with 4 liters removed on 08/03/19 13. S/P IR drain placement on 08/26/2019 Plan . Appears to be dry, hold Bumex s/p thoracentesis, 08/29, 3 litres removed cap trach as tolerated Follow surgery recs-- S/P 3 drain placed in IR on 08/26/2019 Follow ID recs for ABX Follow nephrology recs Continue TPN DVT/GI PPX: heparin SQ/ protonix D/W RN and RT, pt CODE:FULL HARMEET BEE MD September 05, 2019 17:14
[2019-09-05] MEDS ORDERED: FUROSEMIDE 40 MG/4 ML VIAL. IVP ONE (21:45)
--- NOTE | 2019-09-05 21:47 | NUR ---
At shift change, day shift RN told me that Bumex was held because patient seemed too dry, but during the day day shift RN gave patient 1 L fluid. I couldn't find an order or evidence of this liter of fluid in charting. Upon first assessment of patient at 1930, patient was breathing 40-50 breaths per minute, very shallow breathing, lungs sound wet and wheezy. Patient saying she was not getting enough oxygen and needed a break. Patient orientedx3 but very forgetful. Patient also saying things like "how am I supposed to walk out of her tonight when I'm breathing like this?" and "Isn't it better for you to stay up here tonight." Patient also forgets that medication was given and continuously asks for pain medication and says 4 hours is too long to wait. Patient's boyfriend also states that patient does not seem like herself. Fentanyl was given, Precedex bolus given, patient still not improved. Dr. Gordillo notified of patient condition, orders received to give 30 mg IV Lasix x1 dose and if patient continues to struggle to put patient back on ventilator. Addendum: 09/06/19 at 0130 by LOIDA AGUILAR RN RN After giving Lasix, patient's lungs improved but patient was still breathing 50 breaths/minute and kept repeating that she "couldn't do this anymore". Patient was given 2 mg Ativan to help relax her, but Ativan had no effect. ABG obtained and CO2 high at 78. Patient placed back on ventilator. Within 5 minutes of being placed on the ventilator, patient became extremely relaxed. HR dropped to 100s-110s, breathing 16-20 breaths per minute, no longer looking anxious or struggling to breathe, and BP decreasing. After being so relaxed and finally sleeping, SBP continued to drop into 60s-70s. When patient is awake, systolic pressure is in 110s. Dr. Sewell notified of BP issues. Orders received to continue to monitor BP and if it continues to be low give 25% Albumin.
[2019-09-05] MEDS ORDERED: TOTAL PARENTERAL NUTRITION IV SCH ×8 (22:00)
[2019-09-05] MEDS ORDERED: [UNRECOGNIZED DRUG - OTHER] IV SCH ×8 (22:00)
[2019-09-05] MEDS ORDERED: DEXTROSE 70% IV SCH ×8 (22:00)
[2019-09-05] MEDS ORDERED: AMINO ACID IV SCH ×8 (22:00)
[2019-09-06] VITALS (24 sets, daily range): BP systolic 74–135; BP diastolic 43–85
[2019-09-06 00:09] LABS: BASE EXCESS ABG 22 mmol/L (-3-3); HCO3 ABG 49 mmol/L (21-28); PO2 ABG 122 mmHg (75-108); SAT O2 ABG 98 % (92-99)
[2019-09-06 00:10] LABS: PCO2 ABG 78 mmHg (35-46)
[2019-09-06 00:11] LABS: FIO2 ABG 32
[2019-09-06] MEDS: INSULIN LISPRO 300 UNITS/3 ML VIAL. SQ SCH ×5 (00:17→23:44)
[2019-09-06] MEDS ORDERED: ALBUMIN HUMAN 25% 100 ML IV PRN (01:30)
[2019-09-06] MEDS: DEXMEDETOMIDINE 400 MCG in IV NORMAL SALINE 100ML 96 ML IV PRN ×4 (05:04→23:21)
[2019-09-06] MEDS: MEROPENEM 1 GM in IV NORMAL SALINE 100ML 100 ML IV SCH ×3 (05:30→22:30)
[2019-09-06 05:42] LABS: BASO % 0 % (0-3); EOS # 0.1 x10^3/uL (0.0-0.7); EOS % 1 % (0-3); HEMATOCRIT 22.7 % (36.0-47.0); HEMOGLOBIN 7.4 g/dL (12.0-15.5); LYMPH # 2.1 x10^3/uL (1.0-4.8); LYMPH % 19 % (24-48); MEAN CORPUSCULAR HEMOGLOBIN 29 pg (25-35); MEAN CORPUSCULAR HGB CONC 32 g/dL (31-37); MEAN CORPUSCULAR VOLUME 88 fL (79-100); MONO # 0.7 x10^3/uL (0.0-1.1); MONO % 7 % (0-9); NEUT # 8.3 x10^3/uL (1.8-7.7); NEUT % 74 % (31-73); PLATELET COUNT 485 x10^3/uL (140-400); RED BLOOD COUNT 2.58 x10^6/uL (3.50-5.40); RED CELL DISTRIBUTION WIDTH 18.1 % (11.5-14.5); WHITE BLOOD COUNT 11.3 x10^3/uL (4.0-11.0)
--- NOTE | 2019-09-06 07:30 | PDOC ---
Infectious Disease Note Subjective: Subjective Patient agitated last night low grade fevers last night d/w rn off vent, trach o2 Vital Signs: Vital Signs Vital Signs Date Time Temp Pulse Resp B/P (MAP) Pulse Ox O2 Delivery O2 Flow Rate FiO2 09/06/19 06:00 111 18 104/61 (75) 100 Ventilator 09/06/19 04:00 100.6 100.6 09/05/19 23:00 3.0 Physical Exam: PHYSICAL EXAM GENERAL: Semi-sedated ,comfortable HEENT: oral cavity dry, NGT NECK: Trach with speaking valve LUNGS: no rhonchi HEART: S1, S2, regular ABDOMEN: mod Distended, hypoactive BS, tender, + drainsx1 : Lind (08/01) EXTREMITIES: Generalized edema, improving, no cyanosis, SCDs bilaterally SKIN: Warm and dry. No generalized rash. JOCKEY AGENT: Very weak PICC(08/17) clean Medications: Inpatient Meds: Current Medications Medications (Trade) Dose Ordered Sig/Yvon Start Time Stop Time Status Last Admin Dose Admin Acetaminophen (Tylenol Supp) 650 mg PRN Q6HRS PRN 07/12/19 10:30 08/23/19 09:12 650 MG Acetaminophen (Tylenol) 650 mg PRN Q6HRS PRN 07/09/19 03:36 08/31/19 10:25 DC 08/04/19 19:56 650 MG Albumin Human 100 ml @ 100 mls/hr 1X PRN PRN 09/06/19 01:30 Albuterol Sulfate (Ventolin Neb Soln) 2.5 mg 1X ONCE 07/05/19 22:30 07/05/19 22:31 DC 07/06/19 00:56 2.5 MG Alteplase, Recombinant (Cathflo For Central Catheter Clearance) 1 mg 1X ONCE 08/12/19 10:45 08/12/19 10:46 DC 08/12/19 11:44 1 MG Amino Acids/ Glycerin/ Electrolytes 1,000 ml @ 75 mls/hr [id number] 08/08/19 21:15 UNV Artificial Tears (Artificial Tears) 1 drop PRN Q15MIN PRN 08/17/19 05:30 09/05/19 08:08 1 DROP Atenolol (Tenormin) 100 mg DAILY 07/05/19 09:00 07/04/19 20:08 DC Atropine Sulfate (ATROPINE 0.5mg SYRINGE) 0.5 mg PRN Q5MIN PRN 07/21/19 08:15 Benzocaine (Hurricaine One) 1 spray 1X ONCE 07/08/19 14:30 07/08/19 14:31 DC 07/08/19 16:38 1 SPRAY Bisacodyl (Dulcolax Supp) 10 mg STK-MED ONCE 08/15/19 10:59 08/15/19 10:59 DC Bumetanide (Bumex) 2 mg DAILY 08/26/19 10:00 09/05/19 17:15 DC 09/05/19 08:07 2 MG Bupivacaine HCl/ Epinephrine Bitart (Sensorcain-Epi 0.5%-1:585999 Mpf) 30 ml STK-MED ONCE 08/15/19 10:58 08/15/19 10:58 DC 08/15/19 12:01 7 ML Calcium Carbonate/ Glycine (Tums) 500 mg PRN AFTMEALHC PRN 07/06/19 17:45 08/31/19 10:25 DC Calcium Chloride 1000 mg/Sodium Chloride 110 ml @ 220 mls/hr 1X ONCE 07/05/19 22:30 07/05/19 22:59 DC 07/05/19 22:11 220 MLS/HR Calcium Chloride 3000 mg/Sodium Chloride 1,030 ml @ 50 mls/hr [id number] 07/07/19 08:00 07/09/19 15:23 DC 07/09/19 02:17 50 MLS/HR Calcium Gluconate (Calcium Gluconate) 2,000 mg 1X ONCE 07/07/19 02:15 07/07/19 02:16 DC 07/07/19 02:19 2,000 MG Calcium Gluconate 1000 mg/Sodium Chloride 110 ml @ 220 mls/hr 1X ONCE 07/06/19 03:30 07/06/19 03:59 DC 07/06/19 03:21 220 MLS/HR Calcium Gluconate 2000 mg/Sodium Chloride 120 ml @ 220 mls/hr 1X ONCE 07/06/19 07:30 07/06/19 08:02 DC 07/06/19 09:05 220 MLS/HR Cefepime HCl (Maxipime) 2 gm Q12HR 07/13/19 09:00 07/27/19 09:58 DC 07/26/19 20:56 2 GM Cellulose (Surgicel Fibrillar 1x2) 1 each STK-MED ONCE 07/25/19 11:00 07/25/19 11:01 DC Cellulose (Surgicel Hemostat 2x14) 1 each STK-MED ONCE 08/15/19 10:58 08/15/19 10:59 DC Cellulose (Surgicel Hemostat 4x8) 1 each STK-MED ONCE 08/15/19 10:58 08/15/19 10:59 DC Cyclobenzaprine HCl (Flexeril) 10 mg PRN Q6HRS PRN 08/18/19 10:45 Daptomycin 430 mg/ Sodium Chloride 50 ml @ 100 mls/hr Q24H 08/13/19 13:00 08/18/19 20:58 DC 08/18/19 13:00 100 MLS/HR Daptomycin 450 mg/ Sodium Chloride 50 ml @ 100 mls/hr Q24H 09/04/19 09:00 09/05/19 08:08 100 MLS/HR Daptomycin 485 mg/ Sodium Chloride 50 ml @ 100 mls/hr Q24H 08/22/19 11:00 08/30/19 07:44 DC 08/29/19 13:10 100 MLS/HR Daptomycin 500 mg/ Sodium Chloride 50 ml @ 100 mls/hr Q48H 07/13/19 08:30 07/29/19 10:07 DC 07/29/19 09:57 100 MLS/HR Dexamethasone Sodium Phosphate (Decadron) 4 mg STK-MED ONCE 08/15/19 10:56 08/15/19 10:57 DC Dexmedetomidine HCl 400 mcg/ Sodium Chloride 100 ml @ 0 mls/hr CONT PRN 07/21/19 08:15 09/06/19 05:04 16.1 MLS/HR Dextrose (Dextrose 50%-Water Syringe) 12.5 gm PRN Q15MIN PRN 07/04/19 09:30 Digoxin (Lanoxin) 125 mcg 1X ONCE 07/07/19 18:00 07/07/19 18:01 DC 07/07/19 17:10 125 MCG Diphenhydramine HCl (Benadryl) 25 mg 1X PRN PRN 08/12/19 15:45 08/13/19 15:44 DC Duloxetine HCl (Cymbalta) 30 mg DAILY 08/28/19 14:00 08/31/19 10:25 DC 08/29/19 09:48 30 MG Enoxaparin Sodium (Lovenox 100mg Syringe) 100 mg Q12HR 08/09/19 21:00 UNV Enoxaparin Sodium (Lovenox 40mg Syringe) 40 mg Q24H 09/04/19 17:00 09/05/19 17:05 40 MG Etomidate (Amidate) 8 mg 1X ONCE 07/11/19 08:30 07/11/19 08:31 DC 07/11/19 08:33 8 MG Fentanyl Citrate (Fentanyl 2ml Vial) 25 mcg PRN Q4HRS PRN 09/05/19 13:15 09/05/19 17:13 25 MCG Fentanyl Citrate (Fentanyl 5ml Vial) 250 mcg 1X ONCE 08/26/19 09:15 08/26/19 09:16 DC 08/26/19 09:30 50 MCG Furosemide (Lasix) 40 mg 1X ONCE 09/05/19 21:45 09/05/19 21:48 DC 09/05/19 21:51 40 MG Haloperidol Lactate (Haldol Inj) 3 mg 1X ONCE 08/22/19 14:30 08/22/19 14:31 DC 08/22/19 14:37 3 MG Heparin Sodium (Porcine) (Hep Lock Adult) 500 unit STK-MED ONCE 07/26/19 09:29 07/26/19 09:30 DC Heparin Sodium (Porcine) (Heparin Sodium) 5,000 unit Q12HR 08/15/19 21:00 08/25/19 09:59 DC 08/24/19 20:57 5,000 UNIT Heparin Sodium (Porcine) 1000 unit/Sodium Chloride 1,001 ml @ 1,001 mls/hr 1X ONCE 08/15/19 12:00 08/15/19 12:59 DC Hydromorphone HCl (Dilaudid Standard SHIP SCRAPER) 12 mg STK-MED ONCE 08/19/19 15:50 08/30/19 11:24 DC Hydromorphone HCl (Dilaudid) 1 mg PRN Q4HRS PRN 08/22/19 19:00 09/05/19 17:10 DC 09/05/19 06:25 1 MG Info (CONTRAST GIVEN -- Rx MONITORING) 1 each PRN DAILY PRN 07/18/19 11:45 07/20/19 11:44 DC Info (Icu Electrolyte Protocol) 1 ea CONT PRN PRN 07/17/19 13:15 Info (PHARMACY MONITORING -- do not chart) 1 each PRN DAILY PRN 08/12/19 15:45 Info (Tpn Per Pharmacy) 1 each PRN DAILY PRN 07/06/19 12:30 UNV Insulin Human Lispro (HumaLOG) 0-9 UNITS Q6HRS 07/04/19 09:30 09/06/19 05:33 4 UNITS Insulin Human Regular (HumuLIN R VIAL) 5 unit 1X ONCE 07/05/19 22:30 07/05/19 22:31 DC 07/05/19 22:14 5 UNIT Iohexol (Omnipaque 240 Mg/ml) 30 ml 1X ONCE 07/18/19 11:30 07/18/19 11:33 DC 07/18/19 11:30 30 ML Iohexol (Omnipaque 300 Mg/ml) 50 ml STK-MED ONCE 08/15/19 10:58 08/15/19 10:59 DC Iohexol (Omnipaque 350 Mg/ml) 90 ml 1X ONCE 07/04/19 03:30 07/04/19 03:31 DC 07/04/19 03:25 90 ML Ketorolac Tromethamine (Toradol 30mg Vial) 30 mg 1X ONCE 07/04/19 03:00 07/04/19 03:01 DC 07/04/19 02:54 30 MG Lidocaine HCl (Buffered Lidocaine 1%) 6 ml 1X ONCE 08/30/19 14:15 08/30/19 14:16 DC 08/30/19 14:15 3 ML Lidocaine HCl (Glydo (Lidocaine) Jelly) 1 ramu 1X ONCE 07/08/19 14:30 07/08/19 14:31 DC 07/08/19 16:38 1 RAMU Lidocaine HCl (Xylocaine-Mpf 1% 2ml Vial) 2 ml PRN 1X PRN 08/15/19 07:00 08/16/19 06:59 DC Linezolid/Dextrose 300 ml @ 300 mls/hr Q12HR 09/04/19 09:00 09/05/19 21:00 300 MLS/HR Lorazepam (Ativan Inj) 2 mg PRN Q4HRS PRN 09/04/19 19:15 09/05/19 22:20 2 MG Magnesium Sulfate 50 ml @ 25 mls/hr 1X ONCE 08/28/19 09:00 08/28/19 10:59 DC 08/28/19 10:44 25 MLS/HR Meropenem 1 gm/ Sodium Chloride 100 ml @ 200 mls/hr Q8HRS 08/16/19 14:00 09/06/19 05:30 200 MLS/HR Meropenem 500 mg/ Sodium Chloride 50 ml @ 100 mls/hr Q12H 07/27/19 10:00 08/16/19 12:37 DC 08/16/19 10:45 100 MLS/HR Metoclopramide HCl (Reglan Vial) 10 mg PRN Q3HRS PRN 08/27/19 16:45 09/01/19 04:25 10 MG Metoprolol Tartrate (Lopressor Vial) 5 mg 1X ONCE 09/04/19 15:15 09/04/19 15:16 DC 09/04/19 15:31 5 MG Metronidazole 100 ml @ 100 mls/hr Q8HRS 08/02/19 10:00 08/09/19 08:10 DC 08/09/19 06:04 100 MLS/HR Micafungin Sodium 100 mg/Dextrose 100 ml @ 100 mls/hr Q24H 08/22/19 11:00 09/05/19 11:07 100 MLS/HR Midazolam HCl (Versed) 5 mg 1X ONCE 08/26/19 09:15 08/26/19 09:16 DC 08/26/19 09:30 1 MG Midazolam HCl 100 mg/Sodium Chloride 100 ml @ 7 mls/hr CONT PRN 07/16/19 16:00 07/27/19 15:35 7 MLS/HR Midazolam HCl 50 mg/Sodium Chloride 50 ml @ 0 mls/hr CONT PRN 07/11/19 08:15 07/16/19 15:59 DC 07/14/19 22:39 7 MLS/HR Morphine Sulfate (Morphine Sulfate) 2 mg PRN Q2HR PRN 07/04/19 05:00 07/05/19 14:15 DC 07/05/19 12:26 2 MG Multi-Ingred Cream/Lotion/Oil/ Oint (Artificial Tears Eye Ointment) 1 ramu PRN Q1HR PRN 07/13/19 17:30 08/01/19 08:19 1 RAMU Naloxone HCl (Narcan) 0.4 mg PRN Q2MIN PRN 08/15/19 14:30 UNV Norepinephrine Bitartrate 8 mg/ Dextrose 258 ml @ 17.299 mls/ hr CONT PRN 07/05/19 15:30 08/05/19 09:19 DC 08/02/19 12:48 20.9 MLS/HR Ondansetron HCl (Zofran) 4 mg STK-MED ONCE 08/15/19 10:56 08/15/19 10:57 DC Pantoprazole Sodium (PROTONIX VIAL for IV PUSH) 40 mg DAILYAC 07/04/19 11:30 09/05/19 08:07 40 MG Phenylephrine HCl (PHENYLEPHRINE in 0.9% NACL PF) 1 mg STK-MED ONCE 08/15/19 12:34 08/15/19 12:34 DC Piperacillin Sod/ Tazobactam Sod 4.5 gm/Sodium Chloride 100 ml @ 200 mls/hr 1X ONCE 07/04/19 06:00 07/04/19 06:29 DC 07/04/19 05:44 200 MLS/HR Potassium Chloride 15 meq/ Bicarbonate Dialysis Soln w/ out KCl 5,007.5 ml @ 1,000 mls/ hr Q5H1M 07/17/19 20:00 07/21/19 13:08 DC 07/20/19 18:14 1,000 MLS/HR Potassium Chloride 20 meq/ Bicarbonate Dialysis Soln w/ out KCl 5,010 ml @ 1,000 mls/hr Q5H1M 07/13/19 16:00 07/17/19 19:59 DC 07/17/19 14:54 1,000 MLS/HR Potassium Chloride 75 meq/ Magnesium Sulfate 15 meq/ Multivitamins 10 ml/Chromium/ Copper/Manganese/ Seleni/Zn 0.5 ml/ Insulin Human Regular 15 unit/ Total Parenteral Nutrition/Amino Acids/Dextrose/ Fat Emulsion Intravenous 1,920 ml @ 80 mls/hr TPN CONT 08/27/19 22:00 08/28/19 21:59 DC 08/27/19 22:41 80 MLS/HR Potassium Chloride 75 meq/ Magnesium Sulfate 15 meq/Calcium Gluconate 8 meq/ Multivitamins 10 ml/Chromium/ Copper/Manganese/ Seleni/Zn 0.5 ml/ Insulin Human Regular 15 unit/ Total Parenteral Nutrition/Amino Acids/Dextrose/ Fat Emulsion Intravenous 1,920 ml @ 80 mls/hr TPN CONT 08/25/19 22:00 08/26/19 21:59 DC 08/25/19 22:28 80 MLS/HR Potassium Chloride 75 meq/ Magnesium Sulfate 15 meq/Calcium Gluconate 8 meq/ Multivitamins 10 ml/Chromium/ Copper/Manganese/ Seleni/Zn 0.5 ml/ Insulin Human Regular 20 unit/ Total Parenteral Nutrition/Amino Acids/Dextrose/ Fat Emulsion Intravenous 1,920 ml @ 80 mls/hr TPN CONT 08/24/19 22:00 08/25/19 21:59 DC 08/24/19 22:00 80 MLS/HR Potassium Chloride 75 meq/ Magnesium Sulfate 15 meq/Calcium Gluconate 8 meq/ Multivitamins 10 ml/Chromium/ Copper/Manganese/ Seleni/Zn 0.5 ml/ Insulin Human Regular 25 unit/ Total Parenteral Nutrition/Amino Acids/Dextrose/ Fat Emulsion Intravenous 1,920 ml @ 80 mls/hr TPN CONT 08/22/19 22:00 08/23/19 21:59 DC 08/22/19 23:08 80 MLS/HR Potassium Chloride 75 meq/ Magnesium Sulfate 20 meq/Calcium Gluconate 10 meq/ Multivitamins 10 ml/Chromium/ Copper/Manganese/ Seleni/Zn 0.5 ml/ Insulin Human Regular 25 unit/ Total Parenteral Nutrition/Amino Acids/Dextrose/ Fat Emulsion Intravenous 1,920 ml @ 80 mls/hr TPN CONT 08/21/19 22:00 08/22/19 21:59 DC 08/21/19 22:04 80 MLS/HR Potassium Chloride 75 meq/ Magnesium Sulfate 20 meq/Calcium Gluconate 10 meq/ Multivitamins 10 ml/Chromium/ Copper/Manganese/ Seleni/Zn 0.5 ml/ Insulin Human Regular 30 unit/ Total Parenteral Nutrition/Amino Acids/Dextrose/ Fat Emulsion Intravenous 1,920 ml @ 80 mls/hr TPN CONT 08/20/19 22:00 08/21/19 22:00 DC 08/20/19 21:51 80 MLS/HR Potassium Chloride 80 meq/ Magnesium Sulfate 20 meq/ Multivitamins 10 ml/Chromium/ Copper/Manganese/ Seleni/Zn 0.5 ml/ Insulin Human Regular 15 unit/ Total Parenteral Nutrition/Amino Acids/Dextrose/ Fat Emulsion Intravenous 1,920 ml @ 80 mls/hr TPN CONT 08/30/19 22:00 08/31/19 21:59 DC 08/30/19 21:40 80 MLS/HR Potassium Chloride 80 meq/ Magnesium Sulfate 20 meq/ Multivitamins 10 ml/Chromium/ Copper/Manganese/ Seleni/Zn 1 ml/ Insulin Human Regular 15 unit/ Total Parenteral Nutrition/Amino Acids/Dextrose/ Fat Emulsion Intravenous 1,920 ml @ 80 mls/hr TPN CONT 08/31/19 22:00 09/01/19 21:59 DC 08/31/19 22:04 80 MLS/HR Potassium Chloride 90 meq/ Magnesium Sulfate 20 meq/ Multivitamins 10 ml/Chromium/ Copper/Manganese/ Seleni/Zn 1 ml/ Insulin Human Regular 15 unit/ Total Parenteral Nutrition/Amino Acids/Dextrose/ Fat Emulsion Intravenous 1,890 ml @ 78.75 mls/ hr TPN CONT 09/05/19 22:00 09/06/19 21:59 09/05/19 22:18 78.75 MLS/HR Potassium Chloride/Water 100 ml @ 100 mls/hr 1X ONCE 09/01/19 11:00 09/01/19 11:59 DC 09/01/19 11:34 100 MLS/HR Potassium Phosphate 20 mmol/ Sodium Chloride 106.6667 ml @ 51.667 m... 1X ONCE 07/13/19 13:00 07/13/19 15:03 DC 07/13/19 12:51 51.667 MLS/HR Potassium Acetate 30 meq/Magnesium Sulfate 20 meq/ Calcium Gluconate 10 meq/ Multivitamins 10 ml/Chromium/ Copper/Manganese/ Seleni/Zn 0.5 ml/ Insulin Human Regular 30 unit/ Potassium Chloride 30 meq/ Total Parenteral Nutrition/Amino Acids/Dextrose/ Fat Emulsion Intravenous 1,920 ml @ 80 mls/hr TPN CONT 08/19/19 22:00 08/20/19 21:59 DC 08/19/19 22:34 80 MLS/HR Potassium Acetate 55 meq/Magnesium Sulfate 20 meq/ Calcium Gluconate 10 meq/ Multivitamins 10 ml/Chromium/ Copper/Manganese/ Seleni/Zn 0.5 ml/ Insulin Human Regular 30 unit/ Total Parenteral Nutrition/Amino Acids/Dextrose/ Fat Emulsion Intravenous 1,920 ml @ 80 mls/hr TPN CONT 08/18/19 22:00 08/19/19 21:59 DC 08/19/19 01:00 80 MLS/HR Potassium Acetate 55 meq/Magnesium Sulfate 20 meq/ Calcium Gluconate 10 meq/ Multivitamins 10 ml/Chromium/ Copper/Manganese/ Seleni/Zn 0.5 ml/ Insulin Human Regular 35 unit/ Total Parenteral Nutrition/Amino Acids/Dextrose/ Fat Emulsion Intravenous 1,920 ml @ 80 mls/hr TPN CONT 08/16/19 22:00 08/17/19 21:59 DC 08/16/19 22:02 80 MLS/HR Potassium Acetate 65 meq/Magnesium Sulfate 20 meq/ Calcium Gluconate 10 meq/ Multivitamins 10 ml/Chromium/ Copper/Manganese/ Seleni/Zn 0.5 ml/ Insulin Human Regular 30 unit/ Total Parenteral Nutrition/Amino Acids/Dextrose/ Fat Emulsion Intravenous 1,920 ml @ 80 mls/hr TPN CONT 08/17/19 22:00 08/18/19 21:59 DC 08/17/19 22:22 80 MLS/HR Prochlorperazine Edisylate (Compazine) 5 mg PACU PRN PRN 08/15/19 07:00 08/16/19 06:59 DC Propofol 20 ml @ As Directed STK-MED ONCE 08/15/19 12:26 08/15/19 12:27 DC Ringer's Solution 1,000 ml @ 30 mls/hr Q24H 08/15/19 07:00 08/15/19 18:59 DC Rocuronium [place]ney (Zemuron) 50 mg STK-MED ONCE 08/15/19 10:56 08/15/19 10:57 DC Sevoflurane (Ultane) 60 ml STK-MED ONCE 08/15/19 12:26 08/15/19 12:27 DC Sodium Bicarbonate 50 meq/Sodium Chloride 1,050 ml @ 75 mls/hr Q14H 07/06/19 07:30 07/11/19 10:28 DC 07/10/19 21:10 75 MLS/HR Sodium Acetate 50 meq/Potassium Acetate 55 meq/ Magnesium Sulfate 20 meq/Calcium Gluconate 10 meq/ Multivitamins 10 ml/Chromium/ Copper/Manganese/ Seleni/Zn 0.5 ml/ Insulin Human Regular 35 unit/ Total Parenteral Nutrition/Amino Acids/Dextrose/ Fat Emulsion Intravenous 1,800 ml @ 75 mls/hr TPN CONT 08/13/19 22:00 08/14/19 21:59 DC 08/13/19 22:03 75 MLS/HR Sodium Chloride 1,000 ml @ 25 mls/hr Q24H 08/15/19 14:30 UNV Sodium Chloride (Normal Saline Flush) 3 ml QSHIFT PRN 08/15/19 13:45 Sodium Chloride 90 meq/Calcium Gluconate 10 meq/ Multivitamins 10 ml/Chromium/ Copper/Manganese/ Seleni/Zn 0.5 ml/ Total Parenteral Nutrition/Amino Acids/Dextrose/ Fat Emulsion Intravenous 1,512 ml @ 63 mls/hr TPN CONT 07/06/19 22:00 07/07/19 21:59 DC 07/06/19 22:06 63 MLS/HR Sodium Chloride 90 meq/Calcium Gluconate 10 meq/ Multivitamins 10 ml/Chromium/ Copper/Manganese/ Seleni/Zn 1 ml/ Total Parenteral Nutrition/Amino Acids/Dextrose/ Fat Emulsion Intravenous 55.005 ml @ 2.292 mls/hr TPN CONT 07/06/19 22:00 07/06/19 12:33 DC Sodium Chloride 90 meq/Magnesium Sulfate 10 meq/ Calcium Gluconate 20 meq/ Multivitamins 10 ml/Chromium/ Copper/Manganese/ Seleni/Zn 0.5 ml/ Total Parenteral Nutrition/Amino Acids/Dextrose/ Fat Emulsion Intravenous 1,512 ml @ 63 mls/hr TPN CONT 07/07/19 22:00 07/08/19 21:59 DC 07/07/19 22:25 63 MLS/HR Sodium Chloride 90 meq/Magnesium Sulfate 12 meq/ Calcium Gluconate 15 meq/ Multivitamins 10 ml/Chromium/ Copper/Manganese/ Seleni/Zn 0.5 ml/ Insulin Human Regular 25 unit/ Total Parenteral Nutrition/Amino Acids/Dextrose/ Fat Emulsion Intravenous 1,400 ml @ 58.333 mls/ hr TPN CONT 07/27/19 22:00 07/28/19 21:59 DC 07/27/19 21:41 58.333 MLS/HR Sodium Chloride 90 meq/Potassium Chloride 15 meq/ Magnesium Sulfate 12 meq/Calcium Gluconate 15 meq/ Multivitamins 10 ml/Chromium/ Copper/Manganese/ Seleni/Zn 0.5 ml/ Insulin Human Regular 25 unit/ Total Parenteral Nutrition/Amino Acids/Dextrose/ Fat Emulsion Intravenous 1,400 ml @ 58.333 mls/ hr TPN CONT 07/26/19 22:00 07/27/19 21:59 DC 07/26/19 22:13 58.333 MLS/HR Sodium Chloride 90 meq/Potassium Chloride 15 meq/ Potassium Phosphate 10 mmol/ Magnesium Sulfate 8 meq/Calcium Gluconate 15 meq/ Multivitamins 10 ml/Chromium/ Copper/Manganese/ Seleni/Zn 0.5 ml/ Insulin Human Regular 25 unit/ Total Parenteral Nutrition/Amino Acids/Dextrose/ Fat Emulsion Intravenous 1,400 ml @ 58.333 mls/ hr TPN CONT 07/24/19 22:00 07/25/19 21:59 DC 07/24/19 21:20 58.333 MLS/HR Sodium Chloride 90 meq/Potassium Chloride 15 meq/ Potassium Phosphate 10 mmol/ Magnesium Sulfate 10 meq/Calcium Gluconate 20 meq/ Multivitamins 10 ml/Chromium/ Copper/Manganese/ Seleni/Zn 0.5 ml/ Total Parenteral Nutrition/Amino Acids/Dextrose/ Fat Emulsion Intravenous 1,400 ml @ 58.333 mls/ hr TPN CONT 07/11/19 22:00 07/12/19 21:59 DC 07/11/19 21:42 58.333 MLS/HR Sodium Chloride 90 meq/Potassium Chloride 15 meq/ Potassium Phosphate 10 mmol/ Magnesium Sulfate 12 meq/Calcium Gluconate 15 meq/ Multivitamins 10 ml/Chromium/ Copper/Manganese/ Seleni/Zn 0.5 ml/ Insulin Human Regular 25 unit/ Total Parenteral Nutrition/Amino Acids/Dextrose/ Fat Emulsion Intravenous 1,400 ml @ 58.333 mls/ hr TPN CONT 07/25/19 22:00 07/26/19 21:59 DC 07/25/19 22:24 58.333 MLS/HR Sodium Chloride 90 meq/Potassium Chloride 15 meq/ Potassium Phosphate 15 mmol/ Magnesium Sulfate 10 meq/Calcium Gluconate 15 meq/ Multivitamins 10 ml/Chromium/ Copper/Manganese/ Seleni/Zn 0.5 ml/ Total Parenteral Nutrition/Amino Acids/Dextrose/ Fat Emulsion Intravenous 1,400 ml @ 58.333 mls/ hr TPN CONT 07/12/19 22:00 07/13/19 21:59 DC 07/12/19 22:17 58.333 MLS/HR Sodium Chloride 90 meq/Potassium Chloride 15 meq/ Potassium Phosphate 15 mmol/ Magnesium Sulfate 10 meq/Calcium Gluconate 20 meq/ Multivitamins 10 ml/Chromium/ Copper/Manganese/ Seleni/Zn 0.5 ml/ Total Parenteral Nutrition/Amino Acids/Dextrose/ Fat Emulsion Intravenous 1,200 ml @ 50 mls/hr TPN CONT 07/10/19 22:00 07/10/19 14:17 DC Sodium Chloride 90 meq/Potassium Chloride 15 meq/ Potassium Phosphate 18 mmol/ Magnesium Sulfate 8 meq/Calcium Gluconate 15 meq/ Multivitamins 10 ml/Chromium/ Copper/Manganese/ Seleni/Zn 0.5 ml/ Insulin Human Regular 10 unit/ Total Parenteral Nutrition/Amino Acids/Dextrose/ Fat Emulsion Intravenous 1,400 ml @ 58.333 mls/ hr TPN CONT 07/15/19 22:00 07/16/19 21:59 DC 07/15/19 21:43 58.333 MLS/HR Sodium Chloride 90 meq/Potassium Chloride 15 meq/ Potassium Phosphate 18 mmol/ Magnesium Sulfate 8 meq/Calcium Gluconate 15 meq/ Multivitamins 10 ml/Chromium/ Copper/Manganese/ Seleni/Zn 0.5 ml/ Insulin Human Regular 15 unit/ Total Parenteral Nutrition/Amino Acids/Dextrose/ Fat Emulsion Intravenous 1,400 ml @ 58.333 mls/ hr TPN CONT 07/18/19 22:00 07/19/19 21:59 DC 07/18/19 21:47 58.333 MLS/HR Sodium Chloride 90 meq/Potassium Chloride 15 meq/ Potassium Phosphate 18 mmol/ Magnesium Sulfate 8 meq/Calcium Gluconate 15 meq/ Multivitamins 10 ml/Chromium/ Copper/Manganese/ Seleni/Zn 0.5 ml/ Insulin Human Regular 20 unit/ Total Parenteral Nutrition/Amino Acids/Dextrose/ Fat Emulsion Intravenous 1,400 ml @ 58.333 mls/ hr TPN CONT 07/21/19 22:00 07/22/19 21:59 DC 07/21/19 22:45 58.333 MLS/HR Sodium Chloride 90 meq/Potassium Chloride 15 meq/ Potassium Phosphate 18 mmol/ Magnesium Sulfate 8 meq/Calcium Gluconate 15 meq/ Multivitamins 10 ml/Chromium/ Copper/Manganese/ Seleni/Zn 0.5 ml/ Total Parenteral Nutrition/Amino Acids/Dextrose/ Fat Emulsion Intravenous 1,400 ml @ 58.333 mls/ hr TPN CONT 07/14/19 22:00 07/15/19 21:59 DC 07/14/19 22:00 58.333 MLS/HR Sodium Chloride 90 meq/Potassium Phosphate 15 mmol/ Magnesium Sulfate 12 meq/Calcium Gluconate 15 meq/ Multivitamins 10 ml/Chromium/ Copper/Manganese/ Seleni/Zn 0.5 ml/ Insulin Human Regular 30 unit/ Total Parenteral Nutrition/Amino Acids/Dextrose/ Fat Emulsion Intravenous 1,400 ml @ 58.333 mls/ hr TPN CONT 07/29/19 22:00 07/30/19 21:59 DC 07/29/19 21:49 58.333 MLS/HR Sodium Chloride 90 meq/Potassium Phosphate 15 mmol/ Magnesium Sulfate 12 meq/Calcium Gluconate 15 meq/ Multivitamins 10 ml/Chromium/ Copper/Manganese/ Seleni/Zn 0.5 ml/ Insulin Human Regular 40 unit/ Total Parenteral Nutrition/Amino Acids/Dextrose/ Fat Emulsion Intravenous 1,400 ml @ 58.333 mls/ hr TPN CONT 07/30/19 22:00 07/31/19 21:59 DC 07/30/19 21:21 58.333 MLS/HR Sodium Chloride 90 meq/Potassium Phosphate 19 mmol/ Magnesium Sulfate 12 meq/Calcium Gluconate 15 meq/ Multivitamins 10 ml/Chromium/ Copper/Manganese/ Seleni/Zn 0.5 ml/ Insulin Human Regular 40 unit/ Total Parenteral Nutrition/Amino Acids/Dextrose/ Fat Emulsion Intravenous 1,400 ml @ 58.333 mls/ hr TPN CONT 07/31/19 22:00 08/01/19 21:59 DC 07/31/19 21:54 58.333 MLS/HR Sodium Chloride 90 meq/Potassium Phosphate 5 mmol/ Magnesium Sulfate 12 meq/Calcium Gluconate 15 meq/ Multivitamins 10 ml/Chromium/ Copper/Manganese/ Seleni/Zn 0.5 ml/ Insulin Human Regular 30 unit/ Total Parenteral Nutrition/Amino Acids/Dextrose/ Fat Emulsion Intravenous 1,400 ml @ 58.333 mls/ hr TPN CONT 07/28/19 22:00 07/29/19 21:59 DC 07/28/19 22:08 58.333 MLS/HR Sodium Chloride 100 meq/Potassium Chloride 40 meq/ Magnesium Sulfate 15 meq/Calcium Gluconate 15 meq/ Multivitamins 10 ml/Chromium/ Copper/Manganese/ Seleni/Zn 0.5 ml/ Insulin Human Regular 35 unit/ Total Parenteral Nutrition/Amino Acids/Dextrose/ Fat Emulsion Intravenous 1,400 ml @ 58.333 mls/ hr TPN CONT 08/07/19 22:00 08/08/19 21:59 DC 08/07/19 22:46 58.333 MLS/HR Sodium Chloride 100 meq/Potassium Chloride 40 meq/ Magnesium Sulfate 20 meq/Calcium Gluconate 10 meq/ Multivitamins 10 ml/Chromium/ Copper/Manganese/ Seleni/Zn 0.5 ml/ Insulin Human Regular 35 unit/ Total Parenteral Nutrition/Amino Acids/Dextrose/ Fat Emulsion Intravenous 1,400 ml @ 58.333 mls/ hr TPN CONT 08/11/19 22:00 08/12/19 21:59 DC 08/12/19 00:06 58.333 MLS/HR Sodium Chloride 100 meq/Potassium Chloride 40 meq/ Magnesium Sulfate 20 meq/Calcium Gluconate 15 meq/ Multivitamins 10 ml/Chromium/ Copper/Manganese/ Seleni/Zn 0.5 ml/ Insulin Human Regular 35 unit/ Total Parenteral Nutrition/Amino Acids/Dextrose/ Fat Emulsion Intravenous 1,400 ml @ 58.333 mls/ hr TPN CONT 08/10/19 22:00 08/11/19 21:59 DC 08/10/19 22:27 58.333 MLS/HR Sodium Chloride 100 meq/Potassium Phosphate 10 mmol/ Magnesium Sulfate 12 meq/Calcium Gluconate 15 meq/ Multivitamins 10 ml/Chromium/ Copper/Manganese/ Seleni/Zn 0.5 ml/ Insulin Human Regular 35 unit/ Potassium Chloride 20 meq/ Total Parenteral Nutrition/Amino Acids/Dextrose/ Fat Emulsion Intravenous 1,400 ml @ 58.333 mls/ hr TPN CONT 08/04/19 22:00 08/05/19 21:59 DC 08/04/19 22:10 58.333 MLS/HR Sodium Chloride 100 meq/Potassium Phosphate 19 mmol/ Magnesium Sulfate 12 meq/Calcium Gluconate 15 meq/ Multivitamins 10 ml/Chromium/ Copper/Manganese/ Seleni/Zn 0.5 ml/ Insulin Human Regular 40 unit/ Potassium Chloride 20 meq/ Total Parenteral Nutrition/Amino Acids/Dextrose/ Fat Emulsion Intravenous 1,400 ml @ 58.333 mls/ hr TPN CONT 08/03/19 22:00 08/04/19 21:59 DC 08/03/19 21:20 58.333 MLS/HR Sodium Chloride 100 meq/Potassium Phosphate 5 mmol/ Magnesium Sulfate 12 meq/Calcium Gluconate 15 meq/ Multivitamins 10 ml/Chromium/ Copper/Manganese/ Seleni/Zn 0.5 ml/ Insulin Human Regular 35 unit/ Potassium Chloride 20 meq/ Total Parenteral Nutrition/Amino Acids/Dextrose/ Fat Emulsion Intravenous 1,400 ml @ 58.333 mls/ hr TPN CONT 08/05/19 22:00 08/06/19 21:59 DC 08/05/19 22:59 58.333 MLS/HR Succinylcholine Chloride (Anectine) 120 mg 1X ONCE 07/11/19 08:30 07/11/19 08:31 DC 07/11/19 08:34 120 MG Vecuronium [place] (Norcuron Bolus) 6 mg PRN Q6HRS PRN 08/25/19 19:15 08/25/19 19:35 DC Labs: Lab Laboratory Tests Test 09/05/19 11:05 09/05/19 17:03 09/05/19 23:33 09/06/19 00:09 Glucose (Fingerstick) 236 mg/dL (70-99) 179 mg/dL (70-99) 227 mg/dL (70-99) O2 Saturation 98 % (92-99) Arterial Blood pH 7.42 (7.35-7.45) Arterial Blood pCO2 at Patient Temp 78 mmHg (35-46) Arterial Blood pO2 at Patient Temp 122 mmHg (75-108) Arterial Blood HCO3 49 mmol/L (21-28) Arterial Blood Base Excess 22 mmol/L (-3-3) FiO2 32 Test 09/06/19 05:10 09/06/19 05:20 White Blood Count 11.3 x10^3/uL (4.0-11.0) Red Blood Count 2.58 x10^6/uL (3.50-5.40) Hemoglobin 7.4 g/dL (12.0-15.5) Hematocrit 22.7 % (36.0-47.0) Mean Corpuscular Volume 88 fL (79-100) Mean Corpuscular Hemoglobin 29 pg (25-35) Mean Corpuscular Hemoglobin Concent 32 g/dL (31-37) Red Cell Distribution Width 18.1 % (11.5-14.5) Platelet Count 485 x10^3/uL (140-400) Neutrophils (%) (Auto) 74 % (31-73) Lymphocytes (%) (Auto) 19 % (24-48) Monocytes (%) (Auto) 7 % (0-9) Eosinophils (%) (Auto) 1 % (0-3) Basophils (%) (Auto) 0 % (0-3) Neutrophils # (Auto) 8.3 x10^3/uL (1.8-7.7) Lymphocytes # (Auto) 2.1 x10^3/uL (1.0-4.8) Monocytes # (Auto) 0.7 x10^3/uL (0.0-1.1) Eosinophils # (Auto) 0.1 x10^3/uL (0.0-0.7) Basophils # (Auto) 0.0 x10^3/uL (0.0-0.2) Glucose (Fingerstick) 153 mg/dL (70-99) Objective: Assessment: Fever intermittent could be from underlying pancreatitis, Acute pancreatitis with persistent necrosis CT a/p 07/27 Increased ascites. 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 Leucocytosis JUANA,Hyperkalemia, Metabolic acidosis off dialysis Acute hypoxic resp failure ,bilateral pleural effusion and atelectasis hypocalcemia Prediabetes HTN s/p trach Plan: Plan of Care Zyvox/Dapto 09/03 cont merrem 07/26 Continue micafungin 08/21 f/u cultures ,BC neg 09/03 Maintain aspiration precaution Supportive care D/w nursing YUNIOR JONES MD September 06, 2019 07:30
--- NOTE | 2019-09-06 08:26 | PDOC ---
PULMONARY PROGRESS NOTES Subjective Patient intubated on 07/10 , s/p trach 4/6, awake alert follows commands, is weak, small trach secretion, trach has been capped over 48 hrs placed on cap trach, at times patient having some respiratory distress s/p left tap 08/29 , 3 litres removed Vitals Vital Signs Date Time Temp Pulse Resp B/P (MAP) Pulse Ox O2 Delivery O2 Flow Rate FiO2 09/06/19 07:52 100 Ventilator 09/06/19 07:00 109 18 115/63 (80) 09/06/19 04:00 100.6 100.6 09/05/19 23:00 3.0 ROS: No Chest Pain, No Abdominal Pain, No Increase Cough General: Alert, No acute distress HEENT: Other (nc at perrl neck trach site ok no lad no thyromegaly) Lungs: Wheezing, Other (decrease bs) Cardiovascular: S1, S2 Abdomen: Soft, Non-tender, Other (distended) Neuro Exam: Alert Extremities: Other (+3 generalized edema ) Skin: Warm, Dry Labs Laboratory Tests Test 09/04/19 12:00 09/04/19 17:46 09/04/19 23:47 09/05/19 05:56 Glucose (Fingerstick) 225 mg/dL (70-99) 145 mg/dL (70-99) 240 mg/dL (70-99) 162 mg/dL (70-99) Test 09/05/19 06:00 09/05/19 11:05 09/05/19 17:03 09/05/19 23:33 White Blood Count 13.8 x10^3/uL (4.0-11.0) Red Blood Count 2.81 x10^6/uL (3.50-5.40) Hemoglobin 7.9 g/dL (12.0-15.5) Hematocrit 24.9 % (36.0-47.0) Mean Corpuscular Volume 89 fL (79-100) Mean Corpuscular Hemoglobin 28 pg (25-35) Mean Corpuscular Hemoglobin Concent 32 g/dL (31-37) Red Cell Distribution Width 18.1 % (11.5-14.5) Platelet Count 486 x10^3/uL (140-400) Neutrophils (%) (Auto) 72 % (31-73) Lymphocytes (%) (Auto) 21 % (24-48) Monocytes (%) (Auto) 6 % (0-9) Eosinophils (%) (Auto) 1 % (0-3) Basophils (%) (Auto) 0 % (0-3) Neutrophils # (Auto) 10.0 x10^3/uL (1.8-7.7) Lymphocytes # (Auto) 2.9 x10^3/uL (1.0-4.8) Monocytes # (Auto) 0.8 x10^3/uL (0.0-1.1) Eosinophils # (Auto) 0.1 x10^3/uL (0.0-0.7) Basophils # (Auto) 0.0 x10^3/uL (0.0-0.2) Sodium Level 141 mmol/L (136-145) Potassium Level 4.8 mmol/L (3.5-5.1) Chloride Level 99 mmol/L (98-107) Carbon Dioxide Level 42 mmol/L (21-32) Anion Gap 0 (6-14) Blood Urea Nitrogen 26 mg/dL (7-20) Creatinine 0.6 mg/dL (0.6-1.0) Estimated GFR (Cockcroft-Gault) 106.3 Glucose Level 164 mg/dL (70-99) Calcium Level 9.3 mg/dL (8.5-10.1) Phosphorus Level 4.3 mg/dL (2.6-4.7) Magnesium Level 2.0 mg/dL (1.8-2.4) Triglycerides Level 221 mg/dL (0-150) Glucose (Fingerstick) 236 mg/dL (70-99) 179 mg/dL (70-99) O2 Saturation 98 % (92-99) Arterial Blood pH 7.42 (7.35-7.45) Arterial Blood pCO2 at Patient Temp 78 mmHg (35-46) Arterial Blood pO2 at Patient Temp 122 mmHg (75-108) Arterial Blood HCO3 49 mmol/L (21-28) Arterial Blood Base Excess 22 mmol/L (-3-3) FiO2 32 Test 09/06/19 00:09 09/06/19 05:10 09/06/19 05:20 Glucose (Fingerstick) 227 mg/dL (70-99) 153 mg/dL (70-99) White Blood Count 11.3 x10^3/uL (4.0-11.0) Red Blood Count 2.58 x10^6/uL (3.50-5.40) Hemoglobin 7.4 g/dL (12.0-15.5) Hematocrit 22.7 % (36.0-47.0) Mean Corpuscular Volume 88 fL (79-100) Mean Corpuscular Hemoglobin 29 pg (25-35) Mean Corpuscular Hemoglobin Concent 32 g/dL (31-37) Red Cell Distribution Width 18.1 % (11.5-14.5) Platelet Count 485 x10^3/uL (140-400) Neutrophils (%) (Auto) 74 % (31-73) Lymphocytes (%) (Auto) 19 % (24-48) Monocytes (%) (Auto) 7 % (0-9) Eosinophils (%) (Auto) 1 % (0-3) Basophils (%) (Auto) 0 % (0-3) Neutrophils # (Auto) 8.3 x10^3/uL (1.8-7.7) Lymphocytes # (Auto) 2.1 x10^3/uL (1.0-4.8) Monocytes # (Auto) 0.7 x10^3/uL (0.0-1.1) Eosinophils # (Auto) 0.1 x10^3/uL (0.0-0.7) Basophils # (Auto) 0.0 x10^3/uL (0.0-0.2) Laboratory Tests Test 09/05/19 11:05 09/05/19 17:03 09/05/19 23:33 09/06/19 00:09 Glucose (Fingerstick) 236 mg/dL (70-99) 179 mg/dL (70-99) 227 mg/dL (70-99) O2 Saturation 98 % (92-99) Arterial Blood pH 7.42 (7.35-7.45) Arterial Blood pCO2 at Patient Temp 78 mmHg (35-46) Arterial Blood pO2 at Patient Temp 122 mmHg (75-108) Arterial Blood HCO3 49 mmol/L (21-28) Arterial Blood Base Excess 22 mmol/L (-3-3) FiO2 32 Test 09/06/19 05:10 09/06/19 05:20 White Blood Count 11.3 x10^3/uL (4.0-11.0) Red Blood Count 2.58 x10^6/uL (3.50-5.40) Hemoglobin 7.4 g/dL (12.0-15.5) Hematocrit 22.7 % (36.0-47.0) Mean Corpuscular Volume 88 fL (79-100) Mean Corpuscular Hemoglobin 29 pg (25-35) Mean Corpuscular Hemoglobin Concent 32 g/dL (31-37) Red Cell Distribution Width 18.1 % (11.5-14.5) Platelet Count 485 x10^3/uL (140-400) Neutrophils (%) (Auto) 74 % (31-73) Lymphocytes (%) (Auto) 19 % (24-48) Monocytes (%) (Auto) 7 % (0-9) Eosinophils (%) (Auto) 1 % (0-3) Basophils (%) (Auto) 0 % (0-3) Neutrophils # (Auto) 8.3 x10^3/uL (1.8-7.7) Lymphocytes # (Auto) 2.1 x10^3/uL (1.0-4.8) Monocytes # (Auto) 0.7 x10^3/uL (0.0-1.1) Eosinophils # (Auto) 0.1 x10^3/uL (0.0-0.7) Basophils # (Auto) 0.0 x10^3/uL (0.0-0.2) Glucose (Fingerstick) 153 mg/dL (70-99) Medications Active Scripts Medications Dose Route/Sig Max Daily Dose Days Date Category Bisoprolol Fumarate 5 Mg Tablet 10 Mg PO DAILY 07/04/19 Reported Comments CXR reviewed. Impression . IMPRESSION: 1. Acute hypoxemic respiratory failure secondary to ARDS status post trach, 2. Gallstone pancreatitis 3. Severe metabolic acidosis.stable 4. Acute kidney injury-stable, Off HD-- continue to improve 5. Acute gallstone pancreatitis. 6. Hypoalbuminemia. 7. Moderate persistent effusions, s/p left thora 08/29 8. Fever- Per ID, per surgery--resolved 9. Chronic anemia 10. Covid 19 testing negative 11. Moderate to large ascites-S/P paracentisis 12.S/P paracentisis with 4 liters removed on 08/03/19 13. S/P IR drain placement on 08/26/2019 Plan . Chest x-ray reviewed, increasing pleural effusions and infiltrates Lasix 40 mg twice daily Patient placed on assist control last evening for respiratory distress s/p thoracentesis, 08/29, 3 litres removed cap trach as tolerated Follow surgery recs-- S/P 3 drain placed in IR on 08/26/2019 Follow ID recs for ABX Follow nephrology recs Continue TPN DVT/GI PPX: heparin SQ/ protonix D/W RN and RT, pt CODE:FULL HARMEET BEE MD September 06, 2019 08:26
[2019-09-06 09:23] LABS: BASE EXCESS ABG 20 mmol/L (-3-3); HCO3 ABG 42 mmol/L (21-28); PCO2 ABG 37 mmHg (35-46); PO2 ABG 80 mmHg (75-108); SAT O2 ABG 97 % (92-99)
[2019-09-06 09:34] LABS: FIO2 ABG 40
[2019-09-06] MEDS: PANTOPRAZOLE IV PUSH 40 MG VIAL. IVP SCH (09:51)
[2019-09-06] MEDS: DAPTOmycin (GENERIC) IVPB 450 MG in IV NORMAL SALINE 50ML 50 ML IV SCH (09:52)
--- NOTE | 2019-09-06 10:03 | PDOC ---
Subjective: Subjective: Not feeling better. Objective: Objective: D/w nurse - back on vent, pulled NG and some difficulty replacing - gets very anxious, asks for pain meds. Vital Signs: Vital Signs Date Time Temp Pulse Resp B/P (MAP) Pulse Ox O2 Delivery O2 Flow Rate FiO2 09/06/19 09:46 100 Ventilator 09/06/19 09:00 99.4 113 17 108/85 (93) 99.4 09/05/19 23:00 3.0 Labs: Laboratory Tests Test 09/05/19 11:05 09/05/19 17:03 09/05/19 23:33 09/06/19 00:09 Glucose (Fingerstick) 236 mg/dL 179 mg/dL 227 mg/dL O2 Saturation 98 % Arterial Blood pH 7.42 Arterial Blood pCO2 at Patient Temp 78 mmHg Arterial Blood pO2 at Patient Temp 122 mmHg Arterial Blood HCO3 49 mmol/L Arterial Blood Base Excess 22 mmol/L FiO2 32 Test 09/06/19 05:10 09/06/19 05:20 09/06/19 08:00 White Blood Count 11.3 x10^3/uL Red Blood Count 2.58 x10^6/uL Hemoglobin 7.4 g/dL Hematocrit 22.7 % Mean Corpuscular Volume 88 fL Mean Corpuscular Hemoglobin 29 pg Mean Corpuscular Hemoglobin Concent 32 g/dL Red Cell Distribution Width 18.1 % Platelet Count 485 x10^3/uL Neutrophils (%) (Auto) 74 % Lymphocytes (%) (Auto) 19 % Monocytes (%) (Auto) 7 % Eosinophils (%) (Auto) 1 % Basophils (%) (Auto) 0 % Neutrophils # (Auto) 8.3 x10^3/uL Lymphocytes # (Auto) 2.1 x10^3/uL Monocytes # (Auto) 0.7 x10^3/uL Eosinophils # (Auto) 0.1 x10^3/uL Basophils # (Auto) 0.0 x10^3/uL Glucose (Fingerstick) 153 mg/dL O2 Saturation 97 % Arterial Blood pH 7.67 Arterial Blood pCO2 at Patient Temp 37 mmHg Arterial Blood pO2 at Patient Temp 80 mmHg Arterial Blood HCO3 42 mmol/L Arterial Blood Base Excess 20 mmol/L FiO2 40 BLOOD CULTURE Preliminary NO GROWTH AFTER 2 DAYS PE: GEN: NAD - appears more comfortable than yesterday HEENT: trach/vent LUNGS: clear HEART: tachycardic ABD: stable distention NEURO/PSYCH: A & O 3 A/P: Gallstone pancreatitis, MOSF -- NG out again - nurse plans to attempt replacement later today. Hemodynamically unstable?: No Is patient in severe pain?: No Is NPO status required?: Yes CYNDEE FALCON September 06, 2019 10:03
[2019-09-06] MEDS: fentaNYL PF VIAL 100 MCG/2 ML VIAL IVP PRN ×2 (10:12→20:28)
--- NOTE | 2019-09-06 10:24 | RAD ---
PORTABLE CHEST 1V History: Ventilator, tracheostomy Comparison: September 05, 2019 Findings: Single view of the chest is submitted. There is again tracheostomy. There is again right upper extremity PICC with the tip likely near the cavoatrial junction right atrium, poorly delineated on this exam. There is again at least small left pleural effusion with obscuration of left hemidiaphragm, also probable at least small right pleural effusion unchanged. There is fairly diffuse mostly hazy airspace opacity of the mid to inferior right hemithorax overall similar and also likely atelectasis of the right perihilar region unchanged. There is also airspace opacity of the mid to inferior left hemithorax with a greater degree of consolidation at the left lung base unchanged. There is no pneumothorax. Heart size is similar. Impression: 1. Radiographic findings as stated are similar. Electronically signed by: Bry Cruz MD (09/06/2019 10:21 AM) [id number]
--- NOTE | 2019-09-06 10:51 | NUR ---
SS following up with discharge planning. SS reviewed pt chart and discussed with pt RN. Pt CO2 was high last night and pt was placed on the vent. Pt's ABG's better today. Pt has three KAYLIN drains. Per RN, pt pulled her NG tube out this morning and will have it replaced today. Pt remains on IV antibiotics and is showing improvements with PT/OT. SS left voicemail for [facility], [id number], requesting update on disability application. SS will continue to follow for discharge planning.
[2019-09-06] MEDS: MICAFUNGIN 100 MG in IV DEXTROSE 5% 100ML 100 ML IV SCH (11:21)
--- NOTE | 2019-09-06 12:35 | PDOC ---
[employer] PROGRESS NOTE Chief Complaint Chief Complaint Acute hypoxic Respiratory failure requiring mechanical ventilation (now extubated for several days but still with tracheostomy) Tracheostomy bilateral pleural effusions/pulm edema Sepsis Severe Acute gallstone pancreatitis (not a surgical candidate at this time) with necrosis Acute kidney failure now requiring dialysis Salpingitis Gallstones (Calculus of gallbladder with acute cholecystitis without obstruc tion) HTN Leukocytosis Hypoxia Uterine fibroid Intractable pain Intractable nausea Covid 19 negative. Acute on chronic anemia EEG: No seizure activityFever - better currently - intermittent could be from underlying pancreatitis blood cults 08/21 - neg so far ? Ileus with vomiting Abd distention - U/S and CT reviewed s/p 0.4 L of opaque, debris-containing ascites was removed 08/23 Acute pancreatitis with persistent necrosis - 08/14 status post KAYLIN drain placement + C paropsilosis. s/p additional drains 08/25 Anemia - S/p PRBCs Cholelithiasis with thickening of the gallbladder wall. Leucocytosis improving JUANA, hyperkalemia, Metabolic acidosis off dialysis Acute hypoxic resp failure ,bilateral pleural effusion and atelectasis hypocalcemia Prediabetes HTN s/p trach ESRD on HD Hyperglycemia History of Present Illness History of Present Illness 09/06/2019 Patient seen and examined in the ICU She remains extremely critically ill Severely encephalopathic Had to go back on the vent last night Currently on spontaneous respirations with 10 of pressure support and 30% FiO2 Nurses trying to suction her as she has difficulty handing her secretions Chart reviewed X-ray tech just took another x-ray She is on TPN 09/05/2019 Patient seen and examined in the ICU She had an episode yesterday of tachycardia and severe agitation we gave her some Ativan After that she seemed to have stroke symptoms but now that the Ativan has wore off her stroke symptoms have resolved She is a little more calm this morning but even just talking to her gets her agitated and anxious She is currently on TPN and Precedex She has NG to suction She has Lind to bedside drainage She has SCDs Discussed with RN Reviewed chart Remains very critically ill 09/04/2019 Patient seen and examined in the ICU She is up in bed sleeping awoke I really do not understand what she is saying to her but she is trying to talk Chart reviewed Discussed with RN She is on IV Zosyn IV micafungin and IV daptomycin Also getting TPN Sedated with Precedex She also gets Dilaudid every 4 She remains critically ill 09/03/2019 Patient seen and examined in the ICU She is up in the bed but extremely weak and frail Ask if there is "anything we can do" I explained to her that we will do everything we can but that she is very ill and we need to give it time Reviewed with nurse Reviewed chart She is on IV micafungin Anita and meropenem She is on IV TPN She is also receiving Precedex for sedation She has NG to suction and KAYLIN drain x5 Lind to bedside drainage Extremely critically ill 09/02/2019 Patient seen and examined in the ICU She is resting comfortably but sedated Has O2 per nasal cannula Tracheostomy is clean She is on Precedex TPN and has an NG to suction Chart reviewed 09/01/2019 Patient seen and examined in the ICU She now has a speaking valve in her trach and is able to talk She is extremely weak and shaky Chart reviewed discussed with RN 08/31/2019 Patient seen and examined in the ICU She is up in the chair with O2 via trach shield Extremely anxious Cannot talk but is trying to write things to me although I cannot understand what she is writing Discussed with RN Chart reviewed Still on IV TPN Still extremely ill 08/30/2019 Patient seen and examined in the ICU She now has a trach shield Pleasantly confused but sedated with Precedex Chart reviewed Discussed with RN She has IV TPN Still very critically ill 08/29/2019 Patient seen and examined She remains on the vent but spontaneous respirations with 20 of pressure support and 30% FiO2 He still has NG to suction Appears extremely ill and weak and confused Has IV TPN Precedex antibiotics Lind is to bedside drainage She has SCDs and ProCare boots She is on IV meropenem and daptomycin and micafungin Chart reviewed Discussed with RN Patient is still critically ill Ms Diaz is a 48yo F w/ PMHx HTN, prediabetes who presented to the emergency room with complaints of abdominal pain on 07/04/2019. Found with Lipase [id number], AST 401, ALT 249, Bilirubin 1.4. CT abdomen confirms pancreatic inflammation, peripancreatic fluid and inflammatory changes around the pancreas consistent with pancreatitis. Cholelithiasis and 1.4cm uterine fibroid as well as possible left salpingitis. Admitted for further care GI, General surgery, ID, Pulm consulted. 07/04: PICC placed per IR. Renal US negative. Started on levophed. Repeat CT abdomen w/ necrosis; 07/05: Dialysis catheter per nephrology; 07/06: On BiPAP; 07/07: BiPAP, dialysis; 07/08: Overnight Tmax 101.7 , still on BiPAP FiO2 40%, still on low dose Levophed gtt, TPN initiated. On dialysis 07/24: Tracheostomy; 07/30: S/p tracheostomy on vent spontaneous respirations with 5 of pressure support 35% FiO2, rectal tube and a Lind, off pressors; 08/01:Still on vent via trach. Removed PICC and CVC LIJ and replaced. CT chest/abd/pelvis with bilateral pleural effusion and ascites. 08/02: Renal function stable. Still on vent. More interactive today. Miming wish for food. Plan discussed for thoracentesis/paracentesis with daughters today. They were under impression patient was doing worse due to a miscommunication which has been clarified over the phone. 4.3L removed. 08/04: Febrile overnight 101.8F. More interactive, still on vent. Asking for ice by miming; 08/05: Afebrile overnight. TMax last 24 hours 100.6F. Hb 7.1. Interactive when awake. 08/09: Transfusion 1u PRBC (6U total since admit) 08/10-08/13: TPN and precedex, vent. 08/14: Tmax 101F overnight. Hb 8.2. HD cath out since 08/11. Alert. On vent SIMV 35% FiO2. Surgery: ex-lap, no ronel or pancreatic necrosectomy 2/2 profound inflammation. 08/15: Seen POD #1. Afebrile overnight. BUN 62. CBC WNL today.Remains on vent via trach, TPN. Able to point today and indicate she wishes her daughters and Jamaal to be involved in her care. 08/16: Hb 7.4, Na 151. Remains on vent via trach, TPN. off HD for now. Not tolerating trach shield well. 08/17: Negative US for UE DVT. More relaxed today. Has some increase in UOP. Tolerating vent well. She is requesting to eat and drink via writing. T max 100F 24 hours ago, but 101F at 1200. Right PICC placed. Speaking valve for half the day in isper 08/18: Na 153 today. Good UOP. Tmax 101F at 1200 on 08/17. She becomes a bit anxious and did not sleep much last night, wishes to try to sleep this morning 08/19: Able to speak well with speaking valve today. Na 153, K2.9, Mg 1.8, Cr 1. 100.4F axillary temp overnight. Asking for food. 08/20: Afebrile overnight. ABG with pH 7.27/75/123. Hb 7.1. Na 153. 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 She is saturating well and not requiring ventilation support, no acute events reported overnight seems to be slowly improving 08/23: Patient requiring transfusion of packed red blood cells due to anemia, no evidence of acute bleeding, appreciate GI communication consultant recommendations 08/24: Patient required ventilatory support given that she desaturated, she is lying in bed in mild distress, case discussed with nursing staff, no evidence of bleeding, h an h noted. 08/25: Underwent IR procedure as follows BRIEF OPERATIVE NOTE Pre-Op Diagnosis Pancreatitis with pseudocysts, suspected infection Post-Op Diagnosis same Procedure Performed CT abdominal Drains x 3 Surgeon Tesfaye Anesthesia Type: Conscious Sedation Findings 3 abdominal drains, 14F, with turbid pancreatic fluid and necrotic debris in each. Complications No immediate 08/26: Patient today somewhat restless and having bilious secretions from ET tube, imaging studies ordered, discussed with communication consultant. Pretty poor prognosis, hopefully is not a fistula, poor surgical candidate. 08/27: Imaging with no acute events, she seems more stable today compared to yesterday. Encouraged as much activity as possible patient at high risk for severe depression. Vitals/I&O Vitals/I&O: Vital Signs Date Time Temp Pulse Resp B/P (MAP) Pulse Ox O2 Delivery O2 Flow Rate FiO2 09/06/19 11:30 100 Ventilator 09/06/19 11:00 141 22 135/67 (89) 09/06/19 09:00 99.4 99.4 09/05/19 23:00 3.0 I & O 09/05/19 09/05/19 09/06/19 15:00 23:00 07:00 Intake Total 450 ml 1736 ml 1908 ml Output Total 1740 ml 2540 ml 1060 ml Balance -1290 ml -804 ml 848 ml Physical Exam Physical Exam: GENERAL: Severely encephalopathic trying to talk but has a lot of secretions and is confused HEENT: oral cavity dry, NGT NECK: Trach with speaking valve LUNGS: no rhonchi HEART: S1, S2, regular ABDOMEN: mod Distended, hypoactive BS, tender, + drainsx1 : Lind (08/01) EXTREMITIES: Generalized edema, improving, no cyanosis, SCDs bilaterally SKIN: Warm and dry. No generalized rash. 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 PICC(08/17) clean General: moderate distress Heart: Regular rate, Normal S1, Normal S2, No murmurs, Gallops Lungs: Wheezing, Other (decrease bs) Abdomen: Soft, Other (one drain in place) Extremities: No clubbing, No cyanosis, No edema, Normal pulses, No tenderness/swelling Skin: Other (warm, dry) Labs Labs: Laboratory Tests Test 09/05/19 17:03 09/05/19 23:33 09/06/19 00:09 09/06/19 05:10 Glucose (Fingerstick) 179 mg/dL (70-99) 227 mg/dL (70-99) O2 Saturation 98 % (92-99) Arterial Blood pH 7.42 (7.35-7.45) Arterial Blood pCO2 at Patient Temp 78 mmHg (35-46) Arterial Blood pO2 at Patient Temp 122 mmHg (75-108) Arterial Blood HCO3 49 mmol/L (21-28) Arterial Blood Base Excess 22 mmol/L (-3-3) FiO2 32 White Blood Count 11.3 x10^3/uL (4.0-11.0) Red Blood Count 2.58 x10^6/uL (3.50-5.40) Hemoglobin 7.4 g/dL (12.0-15.5) Hematocrit 22.7 % (36.0-47.0) Mean Corpuscular Volume 88 fL (79-100) Mean Corpuscular Hemoglobin 29 pg (25-35) Mean Corpuscular Hemoglobin Concent 32 g/dL (31-37) Red Cell Distribution Width 18.1 % (11.5-14.5) Platelet Count 485 x10^3/uL (140-400) Neutrophils (%) (Auto) 74 % (31-73) Lymphocytes (%) (Auto) 19 % (24-48) Monocytes (%) (Auto) 7 % (0-9) Eosinophils (%) (Auto) 1 % (0-3) Basophils (%) (Auto) 0 % (0-3) Neutrophils # (Auto) 8.3 x10^3/uL (1.8-7.7) Lymphocytes # (Auto) 2.1 x10^3/uL (1.0-4.8) Monocytes # (Auto) 0.7 x10^3/uL (0.0-1.1) Eosinophils # (Auto) 0.1 x10^3/uL (0.0-0.7) Basophils # (Auto) 0.0 x10^3/uL (0.0-0.2) Test 09/06/19 05:20 09/06/19 08:00 Glucose (Fingerstick) 153 mg/dL (70-99) O2 Saturation 97 % (92-99) Arterial Blood pH 7.67 (7.35-7.45) Arterial Blood pCO2 at Patient Temp 37 mmHg (35-46) Arterial Blood pO2 at Patient Temp 80 mmHg (75-108) Arterial Blood HCO3 42 mmol/L (21-28) Arterial Blood Base Excess 20 mmol/L (-3-3) FiO2 40 Review of Systems Review of Systems: Unable to obtain Assessment and Plan Assessmemt and Plan Problems Medical Problems: (1) Acute pancreatitis Status: Acute (2) Cholelithiasis Status: Acute Acute hypoxic Respiratory failure requiring mechanical ventilation was initially intubated on 07/10 was off for couple of days now back on Severe gallstone pancreatitis (not a surgical candidate at this time) with necrosis Tracheostomy bilateral pleural effusions/pulm edema Severe sepsis Acute kidney failure now requiring dialysis Salpingitis Gallstones (Calculus of gallbladder with acute cholecystitis without obstruction) HTN Leukocytosis Hypoxia Uterine fibroid Intractable pain Intractable nausea Covid 19 negative. Acute on chronic anemia EEG: No seizure activityFever - better currently - intermittent could be from underlying pancreatitis blood cults 08/21 - neg so far ? Ileus with vomiting Abd distention - U/S and CT reviewed s/p 0.4 L of opaque, debris-containing ascites was removed 08/23 Acute pancreatitis with persistent necrosis - 08/14 status post KAYLIN drain placement + C paropsilosis. s/p additional drains 08/25 Anemia - S/p PRBCs Cholelithiasis with thickening of the gallbladder wall. Leucocytosis improving JUANA, hyperkalemia, Metabolic acidosis off dialysis Acute hypoxic resp failure ,bilateral pleural effusion and atelectasis hypocalcemia Prediabetes HTN s/p trach ESRD on HD Hyperglycemia Plan ICU monitoring Currently on the vent with spontaneous respirations 10 of pressure support and 30% FiO2 Wound care Hold off on Ativan for now as she gets too weak with it Humidified O2 via nasal cannula for now but we can use trach shield as backup NG suctioning Nebulizers Continue IV antibiotics and micafungin Sedation with Precedex TPN protocol Continue Lind to bedside drainage Tracheostomy care Hope to eventually move towards decannulation (we have a speaking valve for now) Trend labs Appreciate subspecialist input She is extremely critically ill Prognosis is extremely guarded at best still I am concerned she may not survive this (she scored a 9 on Karina criteria 2 weeks ago). Total time 32-minute Comment Review of Relevant I have reviewed the following items kolby (where applicable) has been applied. Medications: Current Medications Medications (Trade) Dose Ordered Sig/Yvon Route PRN Reason Start Time Stop Time Status Last Admin Dose Admin Fentanyl Citrate (Fentanyl 2ml Vial) 50 mcg PRN Q4HRS PRN IVP SEVERE PAIN 09/05/19 13:15 09/06/19 10:12 Fentanyl Citrate (Fentanyl 2ml Vial) 25 mcg PRN Q4HRS PRN IVP MODERATE PAIN 09/05/19 13:15 09/05/19 17:13 Potassium Chloride 90 meq/ Magnesium Sulfate 20 meq/ Multivitamins 10 ml/Chromium/ Copper/Manganese/ Seleni/Zn 1 ml/ Insulin Human Regular 15 unit/ Total Parenteral Nutrition/Amino Acids/Dextrose/ Fat Emulsion Intravenous 1,890 ml @ 78.75 mls/ hr TPN CONT IV 09/05/19 22:00 09/06/19 21:59 09/05/19 22:18 Furosemide (Lasix) 40 mg 1X ONCE IVP 09/05/19 21:45 09/05/19 21:48 DC 09/05/19 21:51 Hemodynamically unstable?: No Is patient in severe pain?: No Is NPO status required?: Yes CASTLE,NIAL K III DO September 06, 2019 12:35
[2019-09-06] MEDS: ONDANSETRON PF 4 MG/2 ML VIAL. IV PRN (12:40)
--- NOTE | 2019-09-06 12:52 | PDOC ---
SURGICAL PROGRESS NOTE Subjective Pt appears comfortable on vent Vital Signs Vital Signs Date Time Temp Pulse Resp B/P (MAP) Pulse Ox O2 Delivery O2 Flow Rate FiO2 09/06/19 11:30 100 Ventilator 09/06/19 11:00 141 22 135/67 (89) 09/06/19 09:00 99.4 99.4 09/05/19 23:00 3.0 I&O Intake and Output 09/06/19 07:00 Intake Total 4094 ml Output Total 5340 ml Balance -1246 ml Intake Oral 0 ml IV Total 4094 ml Output Urine Total 4575 ml Gastric Drainage Total 300 ml Drainage Total 465 ml # Bowel Movements 1 General: Alert, No acute distress Abdomen: Soft, Other (drains in place) Labs Laboratory Tests Test 09/04/19 17:46 09/04/19 23:47 09/05/19 05:56 09/05/19 06:00 Glucose (Fingerstick) 145 mg/dL (70-99) 240 mg/dL (70-99) 162 mg/dL (70-99) White Blood Count 13.8 x10^3/uL (4.0-11.0) Red Blood Count 2.81 x10^6/uL (3.50-5.40) Hemoglobin 7.9 g/dL (12.0-15.5) Hematocrit 24.9 % (36.0-47.0) Mean Corpuscular Volume 89 fL (79-100) Mean Corpuscular Hemoglobin 28 pg (25-35) Mean Corpuscular Hemoglobin Concent 32 g/dL (31-37) Red Cell Distribution Width 18.1 % (11.5-14.5) Platelet Count 486 x10^3/uL (140-400) Neutrophils (%) (Auto) 72 % (31-73) Lymphocytes (%) (Auto) 21 % (24-48) Monocytes (%) (Auto) 6 % (0-9) Eosinophils (%) (Auto) 1 % (0-3) Basophils (%) (Auto) 0 % (0-3) Neutrophils # (Auto) 10.0 x10^3/uL (1.8-7.7) Lymphocytes # (Auto) 2.9 x10^3/uL (1.0-4.8) Monocytes # (Auto) 0.8 x10^3/uL (0.0-1.1) Eosinophils # (Auto) 0.1 x10^3/uL (0.0-0.7) Basophils # (Auto) 0.0 x10^3/uL (0.0-0.2) Sodium Level 141 mmol/L (136-145) Potassium Level 4.8 mmol/L (3.5-5.1) Chloride Level 99 mmol/L (98-107) Carbon Dioxide Level 42 mmol/L (21-32) Anion Gap 0 (6-14) Blood Urea Nitrogen 26 mg/dL (7-20) Creatinine 0.6 mg/dL (0.6-1.0) Estimated GFR (Cockcroft-Gault) 106.3 Glucose Level 164 mg/dL (70-99) Calcium Level 9.3 mg/dL (8.5-10.1) Phosphorus Level 4.3 mg/dL (2.6-4.7) Magnesium Level 2.0 mg/dL (1.8-2.4) Triglycerides Level 221 mg/dL (0-150) Test 09/05/19 11:05 09/05/19 17:03 09/05/19 23:33 09/06/19 00:09 Glucose (Fingerstick) 236 mg/dL (70-99) 179 mg/dL (70-99) 227 mg/dL (70-99) O2 Saturation 98 % (92-99) Arterial Blood pH 7.42 (7.35-7.45) Arterial Blood pCO2 at Patient Temp 78 mmHg (35-46) Arterial Blood pO2 at Patient Temp 122 mmHg (75-108) Arterial Blood HCO3 49 mmol/L (21-28) Arterial Blood Base Excess 22 mmol/L (-3-3) FiO2 32 Test 09/06/19 05:10 09/06/19 05:20 09/06/19 08:00 09/06/19 12:29 White Blood Count 11.3 x10^3/uL (4.0-11.0) Red Blood Count 2.58 x10^6/uL (3.50-5.40) Hemoglobin 7.4 g/dL (12.0-15.5) Hematocrit 22.7 % (36.0-47.0) Mean Corpuscular Volume 88 fL (79-100) Mean Corpuscular Hemoglobin 29 pg (25-35) Mean Corpuscular Hemoglobin Concent 32 g/dL (31-37) Red Cell Distribution Width 18.1 % (11.5-14.5) Platelet Count 485 x10^3/uL (140-400) Neutrophils (%) (Auto) 74 % (31-73) Lymphocytes (%) (Auto) 19 % (24-48) Monocytes (%) (Auto) 7 % (0-9) Eosinophils (%) (Auto) 1 % (0-3) Basophils (%) (Auto) 0 % (0-3) Neutrophils # (Auto) 8.3 x10^3/uL (1.8-7.7) Lymphocytes # (Auto) 2.1 x10^3/uL (1.0-4.8) Monocytes # (Auto) 0.7 x10^3/uL (0.0-1.1) Eosinophils # (Auto) 0.1 x10^3/uL (0.0-0.7) Basophils # (Auto) 0.0 x10^3/uL (0.0-0.2) Glucose (Fingerstick) 153 mg/dL (70-99) 251 mg/dL (70-99) O2 Saturation 97 % (92-99) Arterial Blood pH 7.67 (7.35-7.45) Arterial Blood pCO2 at Patient Temp 37 mmHg (35-46) Arterial Blood pO2 at Patient Temp 80 mmHg (75-108) Arterial Blood HCO3 42 mmol/L (21-28) Arterial Blood Base Excess 20 mmol/L (-3-3) FiO2 40 Laboratory Tests Test 09/05/19 17:03 09/05/19 23:33 09/06/19 00:09 09/06/19 05:10 Glucose (Fingerstick) 179 mg/dL (70-99) 227 mg/dL (70-99) O2 Saturation 98 % (92-99) Arterial Blood pH 7.42 (7.35-7.45) Arterial Blood pCO2 at Patient Temp 78 mmHg (35-46) Arterial Blood pO2 at Patient Temp 122 mmHg (75-108) Arterial Blood HCO3 49 mmol/L (21-28) Arterial Blood Base Excess 22 mmol/L (-3-3) FiO2 32 White Blood Count 11.3 x10^3/uL (4.0-11.0) Red Blood Count 2.58 x10^6/uL (3.50-5.40) Hemoglobin 7.4 g/dL (12.0-15.5) Hematocrit 22.7 % (36.0-47.0) Mean Corpuscular Volume 88 fL (79-100) Mean Corpuscular Hemoglobin 29 pg (25-35) Mean Corpuscular Hemoglobin Concent 32 g/dL (31-37) Red Cell Distribution Width 18.1 % (11.5-14.5) Platelet Count 485 x10^3/uL (140-400) Neutrophils (%) (Auto) 74 % (31-73) Lymphocytes (%) (Auto) 19 % (24-48) Monocytes (%) (Auto) 7 % (0-9) Eosinophils (%) (Auto) 1 % (0-3) Basophils (%) (Auto) 0 % (0-3) Neutrophils # (Auto) 8.3 x10^3/uL (1.8-7.7) Lymphocytes # (Auto) 2.1 x10^3/uL (1.0-4.8) Monocytes # (Auto) 0.7 x10^3/uL (0.0-1.1) Eosinophils # (Auto) 0.1 x10^3/uL (0.0-0.7) Basophils # (Auto) 0.0 x10^3/uL (0.0-0.2) Test 09/06/19 05:20 09/06/19 08:00 09/06/19 12:29 Glucose (Fingerstick) 153 mg/dL (70-99) 251 mg/dL (70-99) O2 Saturation 97 % (92-99) Arterial Blood pH 7.67 (7.35-7.45) Arterial Blood pCO2 at Patient Temp 37 mmHg (35-46) Arterial Blood pO2 at Patient Temp 80 mmHg (75-108) Arterial Blood HCO3 42 mmol/L (21-28) Arterial Blood Base Excess 20 mmol/L (-3-3) FiO2 40 Problem List Problems Medical Problems: (1) Acute pancreatitis Status: Acute (2) Cholelithiasis Status: Acute Assessment/Plan severe pancreatitis cont supportive care, no surgical plans currently DAVON SIMMS MD September 06, 2019 12:52
[2019-09-06] MEDS: IV NORMAL SALINE 1000ML BAG 1,000 ML IV SCH (13:37)
[2019-09-06] MEDS: TPN PER PHARMACY MC PRN (13:52)
--- NOTE | 2019-09-06 13:53 | NUR ---
Pharmacy TPN Dosing Note S: SCOTT AVILA is a 48 year old F Currently receiving Central Continuous TPN started 07/06/19 B:Pertinent PMH: Necrotizing pancreatitis Height: 5 feet, 8 inches Weight: 83.7 kg Current diet: NPO LABS: Sodium: 141 Potassium: 4.8 Chloride: 99 Calcium: 9.2 Corrected Calcium: 10.64 Magnesium: 2.0 CO2: 38 SCr: 0.6 Glucose: 164 Albumin: 2.2 AST: 50 ALT: 50 TPN FORMULA: TPN TYPE: Central Continuous AMINO ACIDS: 90 gm DEXTROSE: 250 gm LIPIDS: 30 gm POTASSIUM CHLORIDE: 90 mEq MAGNESIUM: 20 mEq INSULIN: 15 units MULTIPLE VITAMIN: 10 ml TRACE ELEMENTS: 1 ml TPN PLAN: -No labs today, continue same TPN. -BMP tomorrow. R: Continue TPN @ current rate and above formula. Will monitor electrolytes, glucose, and tolerance to TPN. SHARON CHRISTIANSON, [facility], 09/06/19 [id number]
[2019-09-06] MEDS: FUROSEMIDE 40 MG/4 ML VIAL. IVP SCH (14:24)
--- NOTE | 2019-09-06 14:40 | RAD ---
EXAM: KUB 09/06/2019 1:32 PM CLINICAL INDICATION:OG tube placement COMPARISON:KUB 09/04/2019 TECHNIQUE:AP supine view the abdomen FINDINGS:A nasogastric tube terminates in the gastric body. The sidehole is intragastric. 2 pigtail catheters project over the right lower quadrant. Bowel gas pattern is nonobstructive. No acute osseous abnormality. Probable small left pleural effusion is redemonstrated. IMPRESSION:Intragastric position of nasogastric tube. Electronically signed by: Kena Foote MD (09/06/2019 2:36 PM) [id number]
[2019-09-06] MEDS: ENOXAPARIN 40 MG/0.4 ML SYRINGE. SQ SCH (17:43)
[2019-09-06] MEDS ORDERED: [UNRECOGNIZED DRUG - OTHER] IV SCH ×8 (22:00)
[2019-09-06] MEDS ORDERED: TOTAL PARENTERAL NUTRITION IV SCH ×8 (22:00)
[2019-09-06] MEDS ORDERED: AMINO ACID IV SCH ×8 (22:00)
[2019-09-06] MEDS ORDERED: DEXTROSE 70% IV SCH ×8 (22:00)
[2019-09-07] VITALS (24 sets, daily range): BP systolic 90–189; BP diastolic 45–102
[2019-09-07] MEDS: DEXMEDETOMIDINE 400 MCG in IV NORMAL SALINE 100ML 96 ML IV PRN ×4 (05:00→22:27)
[2019-09-07] MEDS: fentaNYL PF VIAL 100 MCG/2 ML VIAL IVP PRN ×4 (05:00→21:30)
[2019-09-07] MEDS: INSULIN LISPRO 300 UNITS/3 ML VIAL. SQ SCH ×3 (06:00→16:30)
[2019-09-07] MEDS: MEROPENEM 1 GM in IV NORMAL SALINE 100ML 100 ML IV SCH ×3 (06:45→22:25)
[2019-09-07 07:11] LABS: CALCIUM 8.8 mg/dL (8.5-10.1); CREATININE 0.7 mg/dL (0.6-1.0); GFR 88.9; POTASSIUM 3.9 mmol/L (3.5-5.1)
--- NOTE | 2019-09-07 08:11 | PDOC ---
Infectious Disease Note Subjective: Subjective Patient comfortable, arousable,says feels okay off vent, trach o2 Vital Signs: Vital Signs Vital Signs Date Time Temp Pulse Resp B/P (MAP) Pulse Ox O2 Delivery O2 Flow Rate FiO2 09/07/19 07:00 72 14 100/58 (72) 100 Ventilator 09/07/19 04:00 98.2 98.2 Physical Exam: PHYSICAL EXAM GENERAL: Severely encephalopathic trying to talk but has a lot of secretions and is confused HEENT: oral cavity dry, NGT NECK: Trach with speaking valve LUNGS: no rhonchi HEART: S1, S2, regular ABDOMEN: mod Distended, hypoactive BS, tender, + drainsx1 : Lind (08/01) EXTREMITIES: Generalized edema, improving, no cyanosis, SCDs bilaterally SKIN: Warm and dry. No generalized rash. 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 PICC(08/17) clean Medications: Inpatient Meds: Current Medications Medications (Trade) Dose Ordered Sig/Yvon Start Time Stop Time Status Last Admin Dose Admin Acetaminophen (Tylenol Supp) 650 mg PRN Q6HRS PRN 07/12/19 10:30 08/23/19 09:12 650 MG Acetaminophen (Tylenol) 650 mg PRN Q6HRS PRN 07/09/19 03:36 08/31/19 10:25 DC 08/04/19 19:56 650 MG Albumin Human 100 ml @ 100 mls/hr 1X PRN PRN 09/06/19 01:30 Albuterol Sulfate (Ventolin Neb Soln) 2.5 mg 1X ONCE 07/05/19 22:30 07/05/19 22:31 DC 07/06/19 00:56 2.5 MG Alteplase, Recombinant (Cathflo For Central Catheter Clearance) 1 mg 1X ONCE 08/12/19 10:45 08/12/19 10:46 DC 08/12/19 11:44 1 MG Amino Acids/ Glycerin/ Electrolytes 1,000 ml @ 75 mls/hr [id number] 08/08/19 21:15 UNV Artificial Tears (Artificial Tears) 1 drop PRN Q15MIN PRN 08/17/19 05:30 09/05/19 08:08 1 DROP Atenolol (Tenormin) 100 mg DAILY 07/05/19 09:00 3/16/20 20:08 DC Atropine Sulfate (ATROPINE 0.5mg SYRINGE) 0.5 mg PRN Q5MIN PRN 07/21/19 08:15 Benzocaine (Hurricaine One) 1 spray 1X ONCE 07/08/19 14:30 07/08/19 14:31 DC 07/08/19 16:38 1 SPRAY Bisacodyl (Dulcolax Supp) 10 mg STK-MED ONCE 08/15/19 10:59 08/15/19 10:59 DC Bumetanide (Bumex) 2 mg DAILY 08/26/19 10:00 09/05/19 17:15 DC 09/05/19 08:07 2 MG Bupivacaine HCl/ Epinephrine Bitart (Sensorcain-Epi 0.5%-1:[id number] Mpf) 30 ml STK-MED ONCE 08/15/19 10:58 08/15/19 10:58 DC 08/15/19 12:01 7 ML Calcium Carbonate/ Glycine (Tums) 500 mg PRN [id number] PRN 07/06/19 17:45 08/31/19 10:25 DC Calcium Chloride 1000 mg/Sodium Chloride 110 ml @ 220 mls/hr 1X ONCE 07/05/19 22:30 07/05/19 22:59 DC 07/05/19 22:11 220 MLS/HR Calcium Chloride 3000 mg/Sodium Chloride 1,030 ml @ 50 mls/hr [id number] 07/07/19 08:00 07/09/19 15:23 DC 07/09/19 02:17 50 MLS/HR Calcium Gluconate (Calcium Gluconate) 2,000 mg 1X ONCE 07/07/19 02:15 07/07/19 02:16 DC 07/07/19 02:19 2,000 MG Calcium Gluconate 1000 mg/Sodium Chloride 110 ml @ 220 mls/hr 1X ONCE 07/06/19 03:30 07/06/19 03:59 DC 07/06/19 03:21 220 MLS/HR Calcium Gluconate 2000 mg/Sodium Chloride 120 ml @ 220 mls/hr 1X ONCE 07/06/19 07:30 07/06/19 08:02 DC 07/06/19 09:05 220 MLS/HR Cefepime HCl (Maxipime) 2 gm Q12HR 07/13/19 09:00 07/27/19 09:58 DC 07/26/19 20:56 2 GM Cellulose (Surgicel Fibrillar 1x2) 1 each STK-MED ONCE 07/25/19 11:00 07/25/19 11:01 DC Cellulose (Surgicel Hemostat 2x14) 1 each STK-MED ONCE 08/15/19 10:58 08/15/19 10:59 DC Cellulose (Surgicel Hemostat 4x8) 1 each STK-MED ONCE 08/15/19 10:58 08/15/19 10:59 DC Cyclobenzaprine HCl (Flexeril) 10 mg PRN Q6HRS PRN 08/18/19 10:45 Daptomycin 430 mg/ Sodium Chloride 50 ml @ 100 mls/hr Q24H 08/13/19 13:00 08/18/19 20:58 DC 08/18/19 13:00 100 MLS/HR Daptomycin 450 mg/ Sodium Chloride 50 ml @ 100 mls/hr Q24H 09/04/19 09:00 09/06/19 09:52 100 MLS/HR Daptomycin 485 mg/ Sodium Chloride 50 ml @ 100 mls/hr Q24H 08/22/19 11:00 08/30/19 07:44 DC 08/29/19 13:10 100 MLS/HR Daptomycin 500 mg/ Sodium Chloride 50 ml @ 100 mls/hr Q48H 07/13/19 08:30 07/29/19 10:07 DC 07/29/19 09:57 100 MLS/HR Dexamethasone Sodium Phosphate (Decadron) 4 mg STK-MED ONCE 08/15/19 10:56 08/15/19 10:57 DC Dexmedetomidine HCl 400 mcg/ Sodium Chloride 100 ml @ 0 mls/hr CONT PRN 07/21/19 08:15 09/07/19 05:00 16.1 MLS/HR Dextrose (Dextrose 50%-Water Syringe) 12.5 gm PRN Q15MIN PRN 07/04/19 09:30 Digoxin (Lanoxin) 125 mcg 1X ONCE 07/07/19 18:00 07/07/19 18:01 DC 07/07/19 17:10 125 MCG Diphenhydramine HCl (Benadryl) 25 mg 1X PRN PRN 08/12/19 15:45 08/13/19 15:44 DC Duloxetine HCl (Cymbalta) 30 mg DAILY 08/28/19 14:00 08/31/19 10:25 DC 08/29/19 09:48 30 MG Enoxaparin Sodium (Lovenox 100mg Syringe) 100 mg Q12HR 08/09/19 21:00 UNV Enoxaparin Sodium (Lovenox 40mg Syringe) 40 mg Q24H 09/04/19 17:00 09/06/19 17:43 40 MG Etomidate (Amidate) 8 mg 1X ONCE 07/11/19 08:30 07/11/19 08:31 DC 07/11/19 08:33 8 MG Fentanyl Citrate (Fentanyl 2ml Vial) 25 mcg PRN Q4HRS PRN 09/05/19 13:15 09/05/19 17:13 25 MCG Fentanyl Citrate (Fentanyl 5ml Vial) 250 mcg 1X ONCE 08/26/19 09:15 08/26/19 09:16 DC 08/26/19 09:30 50 MCG Furosemide (Lasix) 40 mg [id number] 09/06/19 14:00 09/06/19 14:24 40 MG Haloperidol Lactate (Haldol Inj) 3 mg 1X ONCE 08/22/19 14:30 08/22/19 14:31 DC 08/22/19 14:37 3 MG Heparin Sodium (Porcine) (Hep Lock Adult) 500 unit STK-MED ONCE 07/26/19 09:29 07/26/19 09:30 DC Heparin Sodium (Porcine) (Heparin Sodium) 5,000 unit Q12HR 08/15/19 21:00 08/25/19 09:59 DC 08/24/19 20:57 5,000 UNIT Heparin Sodium (Porcine) 1000 unit/Sodium Chloride 1,001 ml @ 1,001 mls/hr 1X ONCE 08/15/19 12:00 08/15/19 12:59 DC Hydromorphone HCl (Dilaudid Standard FRONT LOAD [employer]) 12 mg STK-MED ONCE 08/19/19 15:50 08/30/19 11:24 DC Hydromorphone HCl (Dilaudid) 1 mg PRN Q4HRS PRN 08/22/19 19:00 09/05/19 17:10 DC 09/05/19 06:25 1 MG Info (CONTRAST GIVEN -- Rx MONITORING) 1 each PRN DAILY PRN 3/30/20 11:45 07/20/19 11:44 DC Info (Icu Electrolyte Protocol) 1 ea CONT PRN PRN 07/17/19 13:15 Info (PHARMACY MONITORING -- do not chart) 1 each PRN DAILY PRN 08/12/19 15:45 Info (Tpn Per Pharmacy) 1 each PRN DAILY PRN 07/06/19 12:30 UNV Insulin Human Lispro (HumaLOG) 0-9 UNITS Q6HRS 07/04/19 09:30 09/06/19 23:44 5 UNITS Insulin Human Regular (HumuLIN R VIAL) 5 unit 1X ONCE 07/05/19 22:30 07/05/19 22:31 DC 07/05/19 22:14 5 UNIT Iohexol (Omnipaque 240 Mg/ml) 30 ml 1X ONCE 07/18/19 11:30 07/18/19 11:33 DC 07/18/19 11:30 30 ML Iohexol (Omnipaque 300 Mg/ml) 50 ml STK-MED ONCE 08/15/19 10:58 08/15/19 10:59 DC Iohexol (Omnipaque 350 Mg/ml) 90 ml 1X ONCE 07/04/19 03:30 07/04/19 03:31 DC 07/04/19 03:25 90 ML Ketorolac Tromethamine (Toradol 30mg Vial) 30 mg 1X ONCE 07/04/19 03:00 07/04/19 03:01 DC 07/04/19 02:54 30 MG Lidocaine HCl (Buffered Lidocaine 1%) 6 ml 1X ONCE 08/30/19 14:15 08/30/19 14:16 DC 08/30/19 14:15 3 ML Lidocaine HCl (Glydo (Lidocaine) Jelly) 1 ramu 1X ONCE 07/08/19 14:30 07/08/19 14:31 DC 07/08/19 16:38 1 RAMU Lidocaine HCl (Xylocaine-Mpf 1% 2ml Vial) 2 ml PRN 1X PRN 08/15/19 07:00 08/16/19 06:59 DC Linezolid/Dextrose 300 ml @ 300 mls/hr Q12HR 09/04/19 09:00 09/06/19 21:08 300 MLS/HR Lorazepam (Ativan Inj) 2 mg PRN Q4HRS PRN 09/04/19 19:15 09/05/19 22:20 2 MG Magnesium Sulfate 50 ml @ 25 mls/hr 1X ONCE 08/28/19 09:00 08/28/19 10:59 DC 08/28/19 10:44 25 MLS/HR Meropenem 1 gm/ Sodium Chloride 100 ml @ 200 mls/hr Q8HRS 08/16/19 14:00 09/07/19 06:45 200 MLS/HR Meropenem 500 mg/ Sodium Chloride 50 ml @ 100 mls/hr Q12H 07/27/19 10:00 08/16/19 12:37 DC 08/16/19 10:45 100 MLS/HR Metoclopramide HCl (Reglan Vial) 10 mg PRN Q3HRS PRN 08/27/19 16:45 09/01/19 04:25 10 MG Metoprolol Tartrate (Lopressor Vial) 5 mg 1X ONCE 09/04/19 15:15 09/04/19 15:16 DC 09/04/19 15:31 5 MG Metronidazole 100 ml @ 100 mls/hr Q8HRS 08/02/19 10:00 08/09/19 08:10 DC 08/09/19 06:04 100 MLS/HR Micafungin Sodium 100 mg/Dextrose 100 ml @ 100 mls/hr Q24H 08/22/19 11:00 09/06/19 11:21 100 MLS/HR Midazolam HCl (Versed) 5 mg 1X ONCE 08/26/19 09:15 08/26/19 09:16 DC 08/26/19 09:30 1 MG Midazolam HCl 100 mg/Sodium Chloride 100 ml @ 7 mls/hr CONT PRN 07/16/19 16:00 07/27/19 15:35 7 MLS/HR Midazolam HCl 50 mg/Sodium Chloride 50 ml @ 0 mls/hr CONT PRN 07/11/19 08:15 07/16/19 15:59 DC 07/14/19 22:39 7 MLS/HR Morphine Sulfate (Morphine Sulfate) 2 mg PRN Q2HR PRN 07/04/19 05:00 07/05/19 14:15 DC 07/05/19 12:26 2 MG Multi-Ingred Cream/Lotion/Oil/ Oint (Artificial Tears Eye Ointment) 1 ramu PRN Q1HR PRN 07/13/19 17:30 08/01/19 08:19 1 RAMU Naloxone HCl (Narcan) 0.4 mg PRN Q2MIN PRN 08/15/19 14:30 UNV Norepinephrine Bitartrate 8 mg/ Dextrose 258 ml @ 17.299 mls/ hr CONT PRN 07/05/19 15:30 08/05/19 09:19 DC 08/02/19 12:48 20.9 MLS/HR Ondansetron HCl (Zofran) 4 mg STK-MED ONCE 08/15/19 10:56 08/15/19 10:57 DC Pantoprazole Sodium (PROTONIX VIAL for IV PUSH) 40 mg DAILYAC 07/04/19 11:30 09/06/19 09:51 40 MG Phenylephrine HCl (PHENYLEPHRINE in 0.9% NACL PF) 1 mg STK-MED ONCE 08/15/19 12:34 08/15/19 12:34 DC Piperacillin Sod/ Tazobactam Sod 4.5 gm/Sodium Chloride 100 ml @ 200 mls/hr 1X ONCE 07/04/19 06:00 07/04/19 06:29 DC 07/04/19 05:44 200 MLS/HR Potassium Chloride 15 meq/ Bicarbonate Dialysis Soln w/ out KCl 5,007.5 ml @ 1,000 mls/ hr Q5H1M 07/17/19 20:00 07/21/19 13:08 DC 07/20/19 18:14 1,000 MLS/HR Potassium Chloride 20 meq/ Bicarbonate Dialysis Soln w/ out KCl 5,010 ml @ 1,000 mls/hr Q5H1M 07/13/19 16:00 07/17/19 19:59 DC 07/17/19 14:54 1,000 MLS/HR Potassium Chloride 75 meq/ Magnesium Sulfate 15 meq/ Multivitamins 10 ml/Chromium/ Copper/Manganese/ Seleni/Zn 0.5 ml/ Insulin Human Regular 15 unit/ Total Parenteral Nutrition/Amino Acids/Dextrose/ Fat Emulsion Intravenous 1,920 ml @ 80 mls/hr TPN CONT 08/27/19 22:00 08/28/19 21:59 DC 08/27/19 22:41 80 MLS/HR Potassium Chloride 75 meq/ Magnesium Sulfate 15 meq/Calcium Gluconate 8 meq/ Multivitamins 10 ml/Chromium/ Copper/Manganese/ Seleni/Zn 0.5 ml/ Insulin Human Regular 15 unit/ Total Parenteral Nutrition/Amino Acids/Dextrose/ Fat Emulsion Intravenous 1,920 ml @ 80 mls/hr TPN CONT 08/25/19 22:00 08/26/19 21:59 DC 08/25/19 22:28 80 MLS/HR Potassium Chloride 75 meq/ Magnesium Sulfate 15 meq/Calcium Gluconate 8 meq/ Multivitamins 10 ml/Chromium/ Copper/Manganese/ Seleni/Zn 0.5 ml/ Insulin Human Regular 20 unit/ Total Parenteral Nutrition/Amino Acids/Dextrose/ Fat Emulsion Intravenous 1,920 ml @ 80 mls/hr TPN CONT 08/24/19 22:00 08/25/19 21:59 DC 08/24/19 22:00 80 MLS/HR Potassium Chloride 75 meq/ Magnesium Sulfate 15 meq/Calcium Gluconate 8 meq/ Multivitamins 10 ml/Chromium/ Copper/Manganese/ Seleni/Zn 0.5 ml/ Insulin Human Regular 25 unit/ Total Parenteral Nutrition/Amino Acids/Dextrose/ Fat Emulsion Intravenous 1,920 ml @ 80 mls/hr TPN CONT 08/22/19 22:00 08/23/19 21:59 DC 08/22/19 23:08 80 MLS/HR Potassium Chloride 75 meq/ Magnesium Sulfate 20 meq/Calcium Gluconate 10 meq/ Multivitamins 10 ml/Chromium/ Copper/Manganese/ Seleni/Zn 0.5 ml/ Insulin Human Regular 25 unit/ Total Parenteral Nutrition/Amino Acids/Dextrose/ Fat Emulsion Intravenous 1,920 ml @ 80 mls/hr TPN CONT 08/21/19 22:00 08/22/19 21:59 DC 08/21/19 22:04 80 MLS/HR Potassium Chloride 75 meq/ Magnesium Sulfate 20 meq/Calcium Gluconate 10 meq/ Multivitamins 10 ml/Chromium/ Copper/Manganese/ Seleni/Zn 0.5 ml/ Insulin Human Regular 30 unit/ Total Parenteral Nutrition/Amino Acids/Dextrose/ Fat Emulsion Intravenous 1,920 ml @ 80 mls/hr TPN CONT 08/20/19 22:00 08/21/19 22:00 DC 08/20/19 21:51 80 MLS/HR Potassium Chloride 80 meq/ Magnesium Sulfate 20 meq/ Multivitamins 10 ml/Chromium/ Copper/Manganese/ Seleni/Zn 0.5 ml/ Insulin Human Regular 15 unit/ Total Parenteral Nutrition/Amino Acids/Dextrose/ Fat Emulsion Intravenous 1,920 ml @ 80 mls/hr TPN CONT 08/30/19 22:00 08/31/19 21:59 DC 08/30/19 21:40 80 MLS/HR Potassium Chloride 80 meq/ Magnesium Sulfate 20 meq/ Multivitamins 10 ml/Chromium/ Copper/Manganese/ Seleni/Zn 1 ml/ Insulin Human Regular 15 unit/ Total Parenteral Nutrition/Amino Acids/Dextrose/ Fat Emulsion Intravenous 1,920 ml @ 80 mls/hr TPN CONT 08/31/19 22:00 09/01/19 21:59 DC 08/31/19 22:04 80 MLS/HR Potassium Chloride 90 meq/ Magnesium Sulfate 20 meq/ Multivitamins 10 ml/Chromium/ Copper/Manganese/ Seleni/Zn 1 ml/ Insulin Human Regular 15 unit/ Total Parenteral Nutrition/Amino Acids/Dextrose/ Fat Emulsion Intravenous 1,800 ml @ 75 mls/hr TPN CONT 09/06/19 22:00 09/07/19 21:59 09/06/19 22:31 75 MLS/HR Potassium Chloride/Water 100 ml @ 100 mls/hr 1X ONCE 09/01/19 11:00 09/01/19 11:59 DC 09/01/19 11:34 100 MLS/HR Potassium Phosphate 20 mmol/ Sodium Chloride 106.6667 ml @ 51.667 m... 1X ONCE 07/13/19 13:00 07/13/19 15:03 DC 07/13/19 12:51 51.667 MLS/HR Potassium Acetate 30 meq/Magnesium Sulfate 20 meq/ Calcium Gluconate 10 meq/ Multivitamins 10 ml/Chromium/ Copper/Manganese/ Seleni/Zn 0.5 ml/ Insulin Human Regular 30 unit/ Potassium Chloride 30 meq/ Total Parenteral Nutrition/Amino Acids/Dextrose/ Fat Emulsion Intravenous 1,920 ml @ 80 mls/hr TPN CONT 08/19/19 22:00 08/20/19 21:59 DC 08/19/19 22:34 80 MLS/HR Potassium Acetate 55 meq/Magnesium Sulfate 20 meq/ Calcium Gluconate 10 meq/ Multivitamins 10 ml/Chromium/ Copper/Manganese/ Seleni/Zn 0.5 ml/ Insulin Human Regular 30 unit/ Total Parenteral Nutrition/Amino Acids/Dextrose/ Fat Emulsion Intravenous 1,920 ml @ 80 mls/hr TPN CONT 08/18/19 22:00 08/19/19 21:59 DC 08/19/19 01:00 80 MLS/HR Potassium Acetate 55 meq/Magnesium Sulfate 20 meq/ Calcium Gluconate 10 meq/ Multivitamins 10 ml/Chromium/ Copper/Manganese/ Seleni/Zn 0.5 ml/ Insulin Human Regular 35 unit/ Total Parenteral Nutrition/Amino Acids/Dextrose/ Fat Emulsion Intravenous 1,920 ml @ 80 mls/hr TPN CONT 08/16/19 22:00 08/17/19 21:59 DC 08/16/19 22:02 80 MLS/HR Potassium Acetate 65 meq/Magnesium Sulfate 20 meq/ Calcium Gluconate 10 meq/ Multivitamins 10 ml/Chromium/ Copper/Manganese/ Seleni/Zn 0.5 ml/ Insulin Human Regular 30 unit/ Total Parenteral Nutrition/Amino Acids/Dextrose/ Fat Emulsion Intravenous 1,920 ml @ 80 mls/hr TPN CONT 08/17/19 22:00 08/18/19 21:59 DC 08/17/19 22:22 80 MLS/HR Prochlorperazine Edisylate (Compazine) 5 mg PACU PRN PRN 08/15/19 07:00 08/16/19 06:59 DC Propofol 20 ml @ As Directed STK-MED ONCE 08/15/19 12:26 08/15/19 12:27 DC Ringer's Solution 1,000 ml @ 30 mls/hr Q24H 08/15/19 07:00 08/15/19 18:59 DC Rocuronium [place] (Zemuron) 50 mg STK-MED ONCE 08/15/19 10:56 08/15/19 10:57 DC Sevoflurane (Ultane) 60 ml STK-MED ONCE 08/15/19 12:26 08/15/19 12:27 DC Sodium Bicarbonate 50 meq/Sodium Chloride 1,050 ml @ 75 mls/hr Q14H 07/06/19 07:30 07/11/19 10:28 DC 07/10/19 21:10 75 MLS/HR Sodium Acetate 50 meq/Potassium Acetate 55 meq/ Magnesium Sulfate 20 meq/Calcium Gluconate 10 meq/ Multivitamins 10 ml/Chromium/ Copper/Manganese/ Seleni/Zn 0.5 ml/ Insulin Human Regular 35 unit/ Total Parenteral Nutrition/Amino Acids/Dextrose/ Fat Emulsion Intravenous 1,800 ml @ 75 mls/hr TPN CONT 08/13/19 22:00 08/14/19 21:59 DC 08/13/19 22:03 75 MLS/HR Sodium Chloride 1,000 ml @ 25 mls/hr Q24H 08/15/19 14:30 UNV Sodium Chloride (Normal Saline Flush) 3 ml QSHIFT PRN 08/15/19 13:45 Sodium Chloride 90 meq/Calcium Gluconate 10 meq/ Multivitamins 10 ml/Chromium/ Copper/Manganese/ Seleni/Zn 0.5 ml/ Total Parenteral Nutrition/Amino Acids/Dextrose/ Fat Emulsion Intravenous 1,512 ml @ 63 mls/hr TPN CONT 07/06/19 22:00 07/07/19 21:59 DC 07/06/19 22:06 63 MLS/HR Sodium Chloride 90 meq/Calcium Gluconate 10 meq/ Multivitamins 10 ml/Chromium/ Copper/Manganese/ Seleni/Zn 1 ml/ Total Parenteral Nutrition/Amino Acids/Dextrose/ Fat Emulsion Intravenous 55.005 ml @ 2.292 mls/hr TPN CONT 07/06/19 22:00 07/06/19 12:33 DC Sodium Chloride 90 meq/Magnesium Sulfate 10 meq/ Calcium Gluconate 20 meq/ Multivitamins 10 ml/Chromium/ Copper/Manganese/ Seleni/Zn 0.5 ml/ Total Parenteral Nutrition/Amino Acids/Dextrose/ Fat Emulsion Intravenous 1,512 ml @ 63 mls/hr TPN CONT 07/07/19 22:00 07/08/19 21:59 DC 07/07/19 22:25 63 MLS/HR Sodium Chloride 90 meq/Magnesium Sulfate 12 meq/ Calcium Gluconate 15 meq/ Multivitamins 10 ml/Chromium/ Copper/Manganese/ Seleni/Zn 0.5 ml/ Insulin Human Regular 25 unit/ Total Parenteral Nutrition/Amino Acids/Dextrose/ Fat Emulsion Intravenous 1,400 ml @ 58.333 mls/ hr TPN CONT 07/27/19 22:00 07/28/19 21:59 DC 07/27/19 21:41 58.333 MLS/HR Sodium Chloride 90 meq/Potassium Chloride 15 meq/ Magnesium Sulfate 12 meq/Calcium Gluconate 15 meq/ Multivitamins 10 ml/Chromium/ Copper/Manganese/ Seleni/Zn 0.5 ml/ Insulin Human Regular 25 unit/ Total Parenteral Nutrition/Amino Acids/Dextrose/ Fat Emulsion Intravenous 1,400 ml @ 58.333 mls/ hr TPN CONT 07/26/19 22:00 07/27/19 21:59 DC 07/26/19 22:13 58.333 MLS/HR Sodium Chloride 90 meq/Potassium Chloride 15 meq/ Potassium Phosphate 10 mmol/ Magnesium Sulfate 8 meq/Calcium Gluconate 15 meq/ Multivitamins 10 ml/Chromium/ Copper/Manganese/ Seleni/Zn 0.5 ml/ Insulin Human Regular 25 unit/ Total Parenteral Nutrition/Amino Acids/Dextrose/ Fat Emulsion Intravenous 1,400 ml @ 58.333 mls/ hr TPN CONT 07/24/19 22:00 07/25/19 21:59 DC 07/24/19 21:20 58.333 MLS/HR Sodium Chloride 90 meq/Potassium Chloride 15 meq/ Potassium Phosphate 10 mmol/ Magnesium Sulfate 10 meq/Calcium Gluconate 20 meq/ Multivitamins 10 ml/Chromium/ Copper/Manganese/ Seleni/Zn 0.5 ml/ Total Parenteral Nutrition/Amino Acids/Dextrose/ Fat Emulsion Intravenous 1,400 ml @ 58.333 mls/ hr TPN CONT 07/11/19 22:00 07/12/19 21:59 DC 07/11/19 21:42 58.333 MLS/HR Sodium Chloride 90 meq/Potassium Chloride 15 meq/ Potassium Phosphate 10 mmol/ Magnesium Sulfate 12 meq/Calcium Gluconate 15 meq/ Multivitamins 10 ml/Chromium/ Copper/Manganese/ Seleni/Zn 0.5 ml/ Insulin Human Regular 25 unit/ Total Parenteral Nutrition/Amino Acids/Dextrose/ Fat Emulsion Intravenous 1,400 ml @ 58.333 mls/ hr TPN CONT 07/25/19 22:00 07/26/19 21:59 DC 07/25/19 22:24 58.333 MLS/HR Sodium Chloride 90 meq/Potassium Chloride 15 meq/ Potassium Phosphate 15 mmol/ Magnesium Sulfate 10 meq/Calcium Gluconate 15 meq/ Multivitamins 10 ml/Chromium/ Copper/Manganese/ Seleni/Zn 0.5 ml/ Total Parenteral Nutrition/Amino Acids/Dextrose/ Fat Emulsion Intravenous 1,400 ml @ 58.333 mls/ hr TPN CONT 07/12/19 22:00 07/13/19 21:59 DC 07/12/19 22:17 58.333 MLS/HR Sodium Chloride 90 meq/Potassium Chloride 15 meq/ Potassium Phosphate 15 mmol/ Magnesium Sulfate 10 meq/Calcium Gluconate 20 meq/ Multivitamins 10 ml/Chromium/ Copper/Manganese/ Seleni/Zn 0.5 ml/ Total Parenteral Nutrition/Amino Acids/Dextrose/ Fat Emulsion Intravenous 1,200 ml @ 50 mls/hr TPN CONT 07/10/19 22:00 07/10/19 14:17 DC Sodium Chloride 90 meq/Potassium Chloride 15 meq/ Potassium Phosphate 18 mmol/ Magnesium Sulfate 8 meq/Calcium Gluconate 15 meq/ Multivitamins 10 ml/Chromium/ Copper/Manganese/ Seleni/Zn 0.5 ml/ Insulin Human Regular 10 unit/ Total Parenteral Nutrition/Amino Acids/Dextrose/ Fat Emulsion Intravenous 1,400 ml @ 58.333 mls/ hr TPN CONT 07/15/19 22:00 07/16/19 21:59 DC 07/15/19 21:43 58.333 MLS/HR Sodium Chloride 90 meq/Potassium Chloride 15 meq/ Potassium Phosphate 18 mmol/ Magnesium Sulfate 8 meq/Calcium Gluconate 15 meq/ Multivitamins 10 ml/Chromium/ Copper/Manganese/ Seleni/Zn 0.5 ml/ Insulin Human Regular 15 unit/ Total Parenteral Nutrition/Amino Acids/Dextrose/ Fat Emulsion Intravenous 1,400 ml @ 58.333 mls/ hr TPN CONT 07/18/19 22:00 07/19/19 21:59 DC 07/18/19 21:47 58.333 MLS/HR Sodium Chloride 90 meq/Potassium Chloride 15 meq/ Potassium Phosphate 18 mmol/ Magnesium Sulfate 8 meq/Calcium Gluconate 15 meq/ Multivitamins 10 ml/Chromium/ Copper/Manganese/ Seleni/Zn 0.5 ml/ Insulin Human Regular 20 unit/ Total Parenteral Nutrition/Amino Acids/Dextrose/ Fat Emulsion Intravenous 1,400 ml @ 58.333 mls/ hr TPN CONT 07/21/19 22:00 07/22/19 21:59 DC 07/21/19 22:45 58.333 MLS/HR Sodium Chloride 90 meq/Potassium Chloride 15 meq/ Potassium Phosphate 18 mmol/ Magnesium Sulfate 8 meq/Calcium Gluconate 15 meq/ Multivitamins 10 ml/Chromium/ Copper/Manganese/ Seleni/Zn 0.5 ml/ Total Parenteral Nutrition/Amino Acids/Dextrose/ Fat Emulsion Intravenous 1,400 ml @ 58.333 mls/ hr TPN CONT 07/14/19 22:00 07/15/19 21:59 DC 07/14/19 22:00 58.333 MLS/HR Sodium Chloride 90 meq/Potassium Phosphate 15 mmol/ Magnesium Sulfate 12 meq/Calcium Gluconate 15 meq/ Multivitamins 10 ml/Chromium/ Copper/Manganese/ Seleni/Zn 0.5 ml/ Insulin Human Regular 30 unit/ Total Parenteral Nutrition/Amino Acids/Dextrose/ Fat Emulsion Intravenous 1,400 ml @ 58.333 mls/ hr TPN CONT 07/29/19 22:00 07/30/19 21:59 DC 07/29/19 21:49 58.333 MLS/HR Sodium Chloride 90 meq/Potassium Phosphate 15 mmol/ Magnesium Sulfate 12 meq/Calcium Gluconate 15 meq/ Multivitamins 10 ml/Chromium/ Copper/Manganese/ Seleni/Zn 0.5 ml/ Insulin Human Regular 40 unit/ Total Parenteral Nutrition/Amino Acids/Dextrose/ Fat Emulsion Intravenous 1,400 ml @ 58.333 mls/ hr TPN CONT 07/30/19 22:00 07/31/19 21:59 DC 07/30/19 21:21 58.333 MLS/HR Sodium Chloride 90 meq/Potassium Phosphate 19 mmol/ Magnesium Sulfate 12 meq/Calcium Gluconate 15 meq/ Multivitamins 10 ml/Chromium/ Copper/Manganese/ Seleni/Zn 0.5 ml/ Insulin Human Regular 40 unit/ Total Parenteral Nutrition/Amino Acids/Dextrose/ Fat Emulsion Intravenous 1,400 ml @ 58.333 mls/ hr TPN CONT 07/31/19 22:00 08/01/19 21:59 DC 07/31/19 21:54 58.333 MLS/HR Sodium Chloride 90 meq/Potassium Phosphate 5 mmol/ Magnesium Sulfate 12 meq/Calcium Gluconate 15 meq/ Multivitamins 10 ml/Chromium/ Copper/Manganese/ Seleni/Zn 0.5 ml/ Insulin Human Regular 30 unit/ Total Parenteral Nutrition/Amino Acids/Dextrose/ Fat Emulsion Intravenous 1,400 ml @ 58.333 mls/ hr TPN CONT 07/28/19 22:00 07/29/19 21:59 DC 07/28/19 22:08 58.333 MLS/HR Sodium Chloride 100 meq/Potassium Chloride 40 meq/ Magnesium Sulfate 15 meq/Calcium Gluconate 15 meq/ Multivitamins 10 ml/Chromium/ Copper/Manganese/ Seleni/Zn 0.5 ml/ Insulin Human Regular 35 unit/ Total Parenteral Nutrition/Amino Acids/Dextrose/ Fat Emulsion Intravenous 1,400 ml @ 58.333 mls/ hr TPN CONT 08/07/19 22:00 08/08/19 21:59 DC 08/07/19 22:46 58.333 MLS/HR Sodium Chloride 100 meq/Potassium Chloride 40 meq/ Magnesium Sulfate 20 meq/Calcium Gluconate 10 meq/ Multivitamins 10 ml/Chromium/ Copper/Manganese/ Seleni/Zn 0.5 ml/ Insulin Human Regular 35 unit/ Total Parenteral Nutrition/Amino Acids/Dextrose/ Fat Emulsion Intravenous 1,400 ml @ 58.333 mls/ hr TPN CONT 08/11/19 22:00 08/12/19 21:59 DC 08/12/19 00:06 58.333 MLS/HR Sodium Chloride 100 meq/Potassium Chloride 40 meq/ Magnesium Sulfate 20 meq/Calcium Gluconate 15 meq/ Multivitamins 10 ml/Chromium/ Copper/Manganese/ Seleni/Zn 0.5 ml/ Insulin Human Regular 35 unit/ Total Parenteral Nutrition/Amino Acids/Dextrose/ Fat Emulsion Intravenous 1,400 ml @ 58.333 mls/ hr TPN CONT 08/10/19 22:00 08/11/19 21:59 DC 08/10/19 22:27 58.333 MLS/HR Sodium Chloride 100 meq/Potassium Phosphate 10 mmol/ Magnesium Sulfate 12 meq/Calcium Gluconate 15 meq/ Multivitamins 10 ml/Chromium/ Copper/Manganese/ Seleni/Zn 0.5 ml/ Insulin Human Regular 35 unit/ Potassium Chloride 20 meq/ Total Parenteral Nutrition/Amino Acids/Dextrose/ Fat Emulsion Intravenous 1,400 ml @ 58.333 mls/ hr TPN CONT 08/04/19 22:00 08/05/19 21:59 DC 08/04/19 22:10 58.333 MLS/HR Sodium Chloride 100 meq/Potassium Phosphate 19 mmol/ Magnesium Sulfate 12 meq/Calcium Gluconate 15 meq/ Multivitamins 10 ml/Chromium/ Copper/Manganese/ Seleni/Zn 0.5 ml/ Insulin Human Regular 40 unit/ Potassium Chloride 20 meq/ Total Parenteral Nutrition/Amino Acids/Dextrose/ Fat Emulsion Intravenous 1,400 ml @ 58.333 mls/ hr TPN CONT 08/03/19 22:00 08/04/19 21:59 DC 08/03/19 21:20 58.333 MLS/HR Sodium Chloride 100 meq/Potassium Phosphate 5 mmol/ Magnesium Sulfate 12 meq/Calcium Gluconate 15 meq/ Multivitamins 10 ml/Chromium/ Copper/Manganese/ Seleni/Zn 0.5 ml/ Insulin Human Regular 35 unit/ Potassium Chloride 20 meq/ Total Parenteral Nutrition/Amino Acids/Dextrose/ Fat Emulsion Intravenous 1,400 ml @ 58.333 mls/ hr TPN CONT 08/05/19 22:00 08/06/19 21:59 DC 08/05/19 22:59 58.333 MLS/HR Succinylcholine Chloride (Anectine) 120 mg 1X ONCE 07/11/19 08:30 07/11/19 08:31 DC 07/11/19 08:34 120 MG Vecuronium [place] (Norcuron Bolus) 6 mg PRN Q6HRS PRN 08/25/19 19:15 08/25/19 19:35 DC Labs: Lab Laboratory Tests Test 09/06/19 12:29 09/06/19 17:42 09/06/19 23:41 09/07/19 06:45 Glucose (Fingerstick) 251 mg/dL (70-99) 122 mg/dL (70-99) 207 mg/dL (70-99) Sodium Level 140 mmol/L (136-145) Potassium Level 3.9 mmol/L (3.5-5.1) Chloride Level 99 mmol/L (98-107) Carbon Dioxide Level 41 mmol/L (21-32) Anion Gap 0 (6-14) Blood Urea Nitrogen 30 mg/dL (7-20) Creatinine 0.7 mg/dL (0.6-1.0) Estimated GFR (Cockcroft-Gault) 88.9 Glucose Level 147 mg/dL (70-99) Calcium Level 8.8 mg/dL (8.5-10.1) Test 09/07/19 06:53 Glucose (Fingerstick) 146 mg/dL (70-99) Objective: Assessment: Fever intermittent could be from underlying pancreatitis, Acute pancreatitis with persistent necrosis CT a/p 07/27 Increased ascites. 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 Leucocytosis JUANA,Hyperkalemia, Metabolic acidosis off dialysis Acute hypoxic resp failure ,bilateral pleural effusion and atelectasis hypocalcemia Prediabetes HTN s/p trach Plan: Plan of Care Dc Zyvox cont Dapto 09/03 cont merrem 07/26 Continue micafungin 08/21 f/u cultures ,BC neg 09/03 Maintain aspiration precaution Supportive care YUNIOR JONES MD September 07, 2019 08:11
[2019-09-07] MEDS: DAPTOmycin (GENERIC) IVPB 450 MG in IV NORMAL SALINE 50ML 50 ML IV SCH (09:25)
[2019-09-07] MEDS: FUROSEMIDE 40 MG/4 ML VIAL. IVP SCH ×2 (09:34→16:19)
[2019-09-07] MEDS: PANTOPRAZOLE IV PUSH 40 MG VIAL. IVP SCH (09:34)
[2019-09-07 09:37] LABS: BASE EXCESS ABG 16 mmol/L (-3-3); HCO3 ABG 41 mmol/L (21-28); PCO2 ABG 54 mmHg (35-46); PO2 ABG 106 mmHg (75-108); SAT O2 ABG 97 % (92-99)
[2019-09-07 09:41] LABS: FIO2 ABG 30% TRIAL
[2019-09-07] MEDS: TPN PER PHARMACY MC PRN (10:01)
--- NOTE | 2019-09-07 10:04 | NUR ---
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, 8 inches Weight: 83.192287 kg Current diet: NPO LABS: Sodium: 140 Potassium: 3.9 Chloride: 99 Calcium: 8.8 Corrected Calcium: 10.24 Magnesium: 2.0 CO2: 38 SCr: 0.7 Glucose: 146-147 Albumin: 2.2 AST: 50 ALT: 50 TPN FORMULA: TPN TYPE: Central Continuous AMINO ACIDS: 90 gm DEXTROSE: 250 gm LIPIDS: 30 gm SODIUM CHLORIDE: - mEq SODIUM ACETATE: - mEq SODIUM PHOSPHATE: - mmol POTASSIUM CHLORIDE: 90 mEq POTASSIUM ACETATE: - mEq POTASSIUM PHOSPHATE: - mmol MAGNESIUM: 20 mEq CALCIUM: - mEq INSULIN: 15 units MULTIPLE VITAMIN: 10 ml TRACE ELEMENTS: 1 ml(s) TPN PLAN: Labs stable today. Drop in K noted from 2 days ago, will watch trend. No changes today. BMP/phos/mag in AM. R: Continue TPN ABOVE. Will monitor electrolytes, glucose, and tolerance to TPN. [facility], 09/07/19 [id number]
--- NOTE | 2019-09-07 10:05 | PDOC ---
Objective: Objective: D/w nurse - better today, gets really anxious. Vital Signs: Vital Signs Date Time Temp Pulse Resp B/P (MAP) Pulse Ox O2 Delivery O2 Flow Rate FiO2 09/07/19 08:22 100 Ventilator 09/07/19 07:00 72 14 100/58 (72) 09/07/19 04:00 98.2 98.2 Labs: Laboratory Tests Test 09/06/19 12:29 09/06/19 17:42 09/06/19 23:41 09/07/19 06:45 Glucose (Fingerstick) 251 mg/dL 122 mg/dL 207 mg/dL Sodium Level 140 mmol/L Potassium Level 3.9 mmol/L Chloride Level 99 mmol/L Carbon Dioxide Level 41 mmol/L Anion Gap 0 Blood Urea Nitrogen 30 mg/dL Creatinine 0.7 mg/dL Estimated GFR (Cockcroft-Gault) 88.9 Glucose Level 147 mg/dL Calcium Level 8.8 mg/dL Test 09/07/19 06:53 09/07/19 09:30 Glucose (Fingerstick) 146 mg/dL O2 Saturation 97 % Arterial Blood pH 7.50 Arterial Blood pCO2 at Patient Temp 54 mmHg Arterial Blood pO2 at Patient Temp 106 mmHg Arterial Blood HCO3 41 mmol/L Arterial Blood Base Excess 16 mmol/L FiO2 30% trial BLOOD CULTURE Preliminary NO GROWTH AFTER 3 DAYS PE: GEN: NAD HEENT: trach/vent, NG bilious NEURO/PSYCH: sleeping, not awakened A/P: Gallstone pancreatitis, MOSF -- Continue same per GI. Hemodynamically unstable?: No Is patient in severe pain?: No Is NPO status required?: Yes CYNDEE FALCON September 07, 2019 10:05
--- NOTE | 2019-09-07 12:07 | PDOC ---
PROGRESS NOTES Chief Complaint Chief Complaint Acute hypoxic Respiratory failure requiring mechanical ventilation (now extubated for several days but still with tracheostomy) Tracheostomy bilateral pleural effusions/pulm edema Sepsis Severe Acute gallstone pancreatitis (not a surgical candidate at this time) with necrosis Acute kidney failure now requiring dialysis Salpingitis Gallstones (Calculus of gallbladder with acute cholecystitis without obstruction) HTN Leukocytosis Hypoxia Uterine fibroid Intractable pain Intractable nausea Covid 19 negative. Acute on chronic anemia EEG: No seizure activityFever - better currently - intermittent could be from underlying pancreatitis blood cults 08/21 - neg so far ? Ileus with vomiting Abd distention - U/S and CT reviewed s/p 0.4 L of opaque, debris-containing ascites was removed 08/23 Acute pancreatitis with persistent necrosis - 08/14 status post KAYLIN drain placement + C paropsilosis. s/p additional drains 08/25 Anemia - S/p PRBCs Cholelithiasis with thickening of the gallbladder wall. Leucocytosis improving JUANA, hyperkalemia, Metabolic acidosis off dialysis Acute hypoxic resp failure ,bilateral pleural effusion and atelectasis hypocalcemia Prediabetes HTN s/p trach ESRD on HD Hyperglycemia History of Present Illness History of Present Illness 09/07/2019 She remains in the ICU sitting up and working with OT, getting better if limit pain meds, may do better off the vent, Nurses trying to suction her, that is also improved, Chart reviewed 09/06/2019 Patient seen and examined in the ICU She had an episode yesterday of tachycardia and severe agitation we gave her some Ativan After that she seemed to have stroke symptoms but now that the Ativan has wore off her stroke symptoms have resolved She is on IV meropenem and daptomycin and micafungin Chart reviewed Discussed with RN Patient is still critically ill BRIEF OPERATIVE NOTE Pre-Op Diagnosis Pancreatitis with pseudocysts, suspected infection Post-Op Diagnosis same Procedure Performed CT abdominal Drains x 3 Surgeon Tesfaye Anesthesia Type: Conscious Sedation Findings 3 abdominal drains, 14F, with turbid pancreatic fluid and necrotic debris in each. Complications No immediate 08/26: Patient today somewhat restless and having bilious secretions from ET tube, imaging studies ordered, discussed with store consultant. Pretty poor prognosis, hopefully is not a fistula, poor surgical candidate. 08/27: Imaging with no acute events, she seems more stable today compared to yesterday. Encouraged as much activity as possible patient at high risk for severe depression. Vitals Vitals Vital Signs Date Time Temp Pulse Resp B/P (MAP) Pulse Ox O2 Delivery O2 Flow Rate FiO2 09/07/19 10:10 100 Tracheal Collar 8.0 09/07/19 07:00 72 14 100/58 (72) 09/07/19 04:00 98.2 98.2 Physical Exam Physical Exam GENERAL: Severely encephalopathic trying to talk but has a lot of secretions and is confused HEENT: oral cavity dry, NGT NECK: Trach with speaking valve LUNGS: no rhonchi HEART: S1, S2, regular ABDOMEN: mod Distended, hypoactive BS, tender, + drainsx1 : Lind (08/01) EXTREMITIES: Generalized edema, improving, no cyanosis, SCDs bilaterally SKIN: Warm and dry. No generalized rash. FUNDER: Very weak PICC(08/17) clean General: Alert, No acute distress Heart: Regular rate, Normal S1, Normal S2, No murmurs, Gallops Lungs: Wheezing, Other (decrease bs) Abdomen: Soft, Other (drains in place) Extremities: No clubbing, No cyanosis, No edema, Normal pulses, No tenderness/swelling Skin: Other (warm, dry) Labs LABS Laboratory Tests Test 09/06/19 12:29 09/06/19 17:42 09/06/19 23:41 09/07/19 06:45 Glucose (Fingerstick) 251 mg/dL (70-99) 122 mg/dL (70-99) 207 mg/dL (70-99) Sodium Level 140 mmol/L (136-145) Potassium Level 3.9 mmol/L (3.5-5.1) Chloride Level 99 mmol/L (98-107) Carbon Dioxide Level 41 mmol/L (21-32) Anion Gap 0 (6-14) Blood Urea Nitrogen 30 mg/dL (7-20) Creatinine 0.7 mg/dL (0.6-1.0) Estimated GFR (Cockcroft-Gault) 88.9 Glucose Level 147 mg/dL (70-99) Calcium Level 8.8 mg/dL (8.5-10.1) Test 09/07/19 06:53 09/07/19 09:30 Glucose (Fingerstick) 146 mg/dL (70-99) O2 Saturation 97 % (92-99) Arterial Blood pH 7.50 (7.35-7.45) Arterial Blood pCO2 at Patient Temp 54 mmHg (35-46) Arterial Blood pO2 at Patient Temp 106 mmHg (75-108) Arterial Blood HCO3 41 mmol/L (21-28) Arterial Blood Base Excess 16 mmol/L (-3-3) FiO2 30% trial Assessment and Plan Assessmemt and Plan Problems Medical Problems: (1) Acute pancreatitis Status: Acute (2) Cholelithiasis Status: Acute Comment Review of Relevant I have reviewed the following items kolby (where applicable) has been applied. Labs Laboratory Tests Test 09/05/19 17:03 09/05/19 23:33 09/06/19 00:09 09/06/19 05:10 Glucose (Fingerstick) 179 mg/dL (70-99) 227 mg/dL (70-99) O2 Saturation 98 % (92-99) Arterial Blood pH 7.42 (7.35-7.45) Arterial Blood pCO2 at Patient Temp 78 mmHg (35-46) Arterial Blood pO2 at Patient Temp 122 mmHg (75-108) Arterial Blood HCO3 49 mmol/L (21-28) Arterial Blood Base Excess 22 mmol/L (-3-3) FiO2 32 White Blood Count 11.3 x10^3/uL (4.0-11.0) Red Blood Count 2.58 x10^6/uL (3.50-5.40) Hemoglobin 7.4 g/dL (12.0-15.5) Hematocrit 22.7 % (36.0-47.0) Mean Corpuscular Volume 88 fL (79-100) Mean Corpuscular Hemoglobin 29 pg (25-35) Mean Corpuscular Hemoglobin Concent 32 g/dL (31-37) Red Cell Distribution Width 18.1 % (11.5-14.5) Platelet Count 485 x10^3/uL (140-400) Neutrophils (%) (Auto) 74 % (31-73) Lymphocytes (%) (Auto) 19 % (24-48) Monocytes (%) (Auto) 7 % (0-9) Eosinophils (%) (Auto) 1 % (0-3) Basophils (%) (Auto) 0 % (0-3) Neutrophils # (Auto) 8.3 x10^3/uL (1.8-7.7) Lymphocytes # (Auto) 2.1 x10^3/uL (1.0-4.8) Monocytes # (Auto) 0.7 x10^3/uL (0.0-1.1) Eosinophils # (Auto) 0.1 x10^3/uL (0.0-0.7) Basophils # (Auto) 0.0 x10^3/uL (0.0-0.2) Test 09/06/19 05:20 09/06/19 08:00 09/06/19 12:29 09/06/19 17:42 Glucose (Fingerstick) 153 mg/dL (70-99) 251 mg/dL (70-99) 122 mg/dL (70-99) O2 Saturation 97 % (92-99) Arterial Blood pH 7.67 (7.35-7.45) Arterial Blood pCO2 at Patient Temp 37 mmHg (35-46) Arterial Blood pO2 at Patient Temp 80 mmHg (75-108) Arterial Blood HCO3 42 mmol/L (21-28) Arterial Blood Base Excess 20 mmol/L (-3-3) FiO2 40 Test 09/06/19 23:41 09/07/19 06:45 09/07/19 06:53 09/07/19 09:30 Glucose (Fingerstick) 207 mg/dL (70-99) 146 mg/dL (70-99) Sodium Level 140 mmol/L (136-145) Potassium Level 3.9 mmol/L (3.5-5.1) Chloride Level 99 mmol/L (98-107) Carbon Dioxide Level 41 mmol/L (21-32) Anion Gap 0 (6-14) Blood Urea Nitrogen 30 mg/dL (7-20) Creatinine 0.7 mg/dL (0.6-1.0) Estimated GFR (Cockcroft-Gault) 88.9 Glucose Level 147 mg/dL (70-99) Calcium Level 8.8 mg/dL (8.5-10.1) O2 Saturation 97 % (92-99) Arterial Blood pH 7.50 (7.35-7.45) Arterial Blood pCO2 at Patient Temp 54 mmHg (35-46) Arterial Blood pO2 at Patient Temp 106 mmHg (75-108) Arterial Blood HCO3 41 mmol/L (21-28) Arterial Blood Base Excess 16 mmol/L (-3-3) FiO2 30% trial Laboratory Tests Test 09/06/19 12:29 09/06/19 17:42 09/06/19 23:41 09/07/19 06:45 Glucose (Fingerstick) 251 mg/dL (70-99) 122 mg/dL (70-99) 207 mg/dL (70-99) Sodium Level 140 mmol/L (136-145) Potassium Level 3.9 mmol/L (3.5-5.1) Chloride Level 99 mmol/L (98-107) Carbon Dioxide Level 41 mmol/L (21-32) Anion Gap 0 (6-14) Blood Urea Nitrogen 30 mg/dL (7-20) Creatinine 0.7 mg/dL (0.6-1.0) Estimated GFR (Cockcroft-Gault) 88.9 Glucose Level 147 mg/dL (70-99) Calcium Level 8.8 mg/dL (8.5-10.1) Test 09/07/19 06:53 09/07/19 09:30 Glucose (Fingerstick) 146 mg/dL (70-99) O2 Saturation 97 % (92-99) Arterial Blood pH 7.50 (7.35-7.45) Arterial Blood pCO2 at Patient Temp 54 mmHg (35-46) Arterial Blood pO2 at Patient Temp 106 mmHg (75-108) Arterial Blood HCO3 41 mmol/L (21-28) Arterial Blood Base Excess 16 mmol/L (-3-3) FiO2 30% trial Microbiology 09/04/19 Blood Culture - Preliminary, Resulted NO GROWTH AFTER 3 DAYS 08/24/19 Fungal Culture - Final, Complete 08/24/19 Fungal Culture Result 1 - Final, Complete 08/18/19 Aerobic Culture - Final, Complete 08/18/19 Aerobic Culture Result 1 (ALEXANDRA) - Final, Complete 08/18/19 Gram Stain - Final, Complete 08/18/19 Gram Stain Result 1 (ALEXANDRA) - Final, Complete 08/18/19 Gram Stain Result 2 (ALEXANDRA) - Final, Complete 07/31/19 Urine Culture - Final, Complete 07/31/19 Urine Culture Result 1 (ALEXANDRA) - Final, Complete Medications Current Medications Sodium Chloride 1,000 ml @ 1,000 mls/hr Q1H IV Last administered on 07/04/19at 03:00; Start 07/04/19 at 03:00; Stop 07/04/19 at 03:59; Status DC Ondansetron HCl (Zofran) 4 mg 1X ONCE IVP Last administered on 07/04/19at 03:27; Start 07/04/19 at 03:00; Stop 07/04/19 at 03:01; Status DC Morphine Sulfate (Morphine Sulfate) 4 mg 1X ONCE IV ; Start 07/04/19 at 03:00; Stop 07/04/19 at 03:01; Status Cancel Ketorolac Tromethamine (Toradol 30mg Vial) 30 mg 1X ONCE IV Last administered on 07/04/19at 02:54; Start 07/04/19 at 03:00; Stop 07/04/19 at 03:01; Status DC Fentanyl Citrate (Fentanyl 2ml Vial) 25 mcg 1X ONCE IVP Last administered on 07/04/19at 03:23; Start 07/04/19 at 03:30; Stop 07/04/19 at 03:31; Status DC Fentanyl Citrate (Fentanyl 2ml Vial) 100 mcg STK-MED ONCE .ROUTE ; Start 07/04/19 at 03:18; Stop 07/04/19 at 03:18; Status DC Iohexol (Omnipaque 350 Mg/ml) 90 ml 1X ONCE IV Last administered on 07/04/19at 03:25; Start 07/04/19 at 03:30; Stop 07/04/19 at 03:31; Status DC Info (CONTRAST GIVEN -- Rx MONITORING) 1 each PRN DAILY PRN MC SEE COMMENTS; Start 07/04/19 at 03:30; Stop 07/06/19 at 03:29; Status DC Hydromorphone HCl (Dilaudid) 0.5 mg 1X ONCE IV Last administered on 07/04/19at 03:55; Start 07/04/19 at 04:30; Stop 07/04/19 at 04:32; Status DC Ondansetron HCl (Zofran) 4 mg PRN Q8HRS PRN IV NAUSEA/VOMITING 1ST CHOICE; Start 07/04/19 at 05:00; Stop 07/04/19 at 09:27; Status DC Morphine Sulfate (Morphine Sulfate) 2 mg PRN Q2HR PRN IV SEVERE PAIN 7-10 Last administered on 07/05/19at 12:26; Start 07/04/19 at 05:00; Stop 07/05/19 at 14:15; Status DC Sodium Chloride 1,000 ml @ 125 mls/hr Q8H IV Last administered on 07/04/19at 20:56; Start 07/04/19 at 05:00; Stop 07/05/19 at 04:59; Status DC Hydromorphone HCl (Dilaudid) 0.5 mg PRN Q3HRS PRN IV SEVERE PAIN 7-10 Last administered on 07/05/19at 10:06; Start 07/04/19 at 05:00; Stop 07/05/19 at 12:01; Status DC Piperacillin Sod/ Tazobactam Sod 4.5 gm/Sodium Chloride 100 ml @ 200 mls/hr 1X ONCE IV Last administered on 07/04/19at 05:44; Start 07/04/19 at 06:00; Stop 07/04/19 at 06:29; Status DC Ondansetron HCl (Zofran) 4 mg PRN Q4HRS PRN IV NAUSEA/VOMITING 1ST CHOICE Last administered on 09/06/19at 12:40; Start 07/04/19 at 09:30 Insulin Human Lispro (HumaLOG) 0-9 UNITS Q6HRS SQ Last administered on 09/06/19at 23:44; Start 07/04/19 at 09:30 Dextrose (Dextrose 50%-Water Syringe) 12.5 gm PRN Q15MIN PRN IV SEE COMMENTS; Start 07/04/19 at 09:30 Pantoprazole Sodium (PROTONIX VIAL for IV PUSH) 40 mg DAILYAC IVP Last administered on 09/07/19at 09:34; Start 07/04/19 at 11:30 Prochlorperazine Edisylate (Compazine) 10 mg PRN Q6HRS PRN IV NAUSEA/VOMITING, 2nd CHOICE Last administered on 09/01/19at 06:11; Start 07/04/19 at 17:45 Atenolol (Tenormin) 100 mg DAILY PO ; Start 07/05/19 at 09:00; Stop 07/04/19 at 20:08; Status DC Metoprolol Tartrate (Lopressor Vial) 2.5 mg Q6HRS IVP Last administered on 07/05/19at 05:51; Start 07/04/19 at 20:15; Stop 07/05/19 at 10:02; Status DC Metoprolol Tartrate (Lopressor Vial) 5 mg Q6HRS IVP Last administered on 07/14/19at 00:12; Start 07/05/19 at 10:15; Stop 07/16/19 at 08:48; Status DC Hydromorphone HCl (Dilaudid) 1 mg PRN Q3HRS PRN IV SEVERE PAIN 7-10 Last administered on 07/11/19at 05:13; Start 07/05/19 at 12:00; Stop 07/19/19 at 00:2 5; Status DC Lidocaine HCl (Buffered Lidocaine 1%) 3 ml STK-MED ONCE .ROUTE ; Start 07/05/19 at 12:55; Stop 07/05/19 at 12:56; Status DC Albumin Human 500 ml @ 125 mls/hr 1X ONCE IV Last administered on 07/05/19at 14:33; Start 07/05/19 at 14:30; Stop 07/05/19 at 18:32; Status DC Norepinephrine Bitartrate 8 mg/ Dextrose 258 ml @ 17.299 mls/ hr CONT PRN IV PER PROTOCOL Last administered on 08/02/19at 12:48; Start 07/05/19 at 15:30; Stop 08/05/19 at 09:19; Status DC Sodium Chloride 1,000 ml @ 125 mls/hr Q8H IV Last administered on 07/05/19at 21:04; Start 07/05/19 at 16:00; Stop 07/06/19 at 02:42; Status DC Albumin Human 500 ml @ 125 mls/hr PRN BID PRN IV After every 2L NSS & BP < 90mm Last administered on 07/20/19at 14:21; Start 07/05/19 at 16:00 Iohexol (Omnipaque 300 Mg/ml) 60 ml 1X ONCE IV Last administered on 07/05/19at 17:20; Start 07/05/19 at 17:00; Stop 07/05/19 at 17:01; Status DC Info (CONTRAST GIVEN -- Rx MONITORING) 1 each PRN DAILY PRN MC SEE COMMENTS; Start 07/05/19 at 17:00; Stop 07/07/19 at 16:59; Status DC Meropenem 1 gm/ Sodium Chloride 100 ml @ 200 mls/hr Q8HRS IV Last administered on 07/06/19at 05:45; Start 07/05/19 at 20:00; Stop 07/06/19 at 08:48; Status DC Furosemide (Lasix) 40 mg 1X ONCE IVP Last administered on 07/05/19at 22:12; Start 07/05/19 at 22:30; Stop 07/05/19 at 22:31; Status DC Calcium Chloride 1000 mg/Sodium Chloride 110 ml @ 220 mls/hr 1X ONCE IV Last administered on 07/05/19at 22:11; Start 07/05/19 at 22:30; Stop 07/05/19 at 22:59; Status DC Albuterol Sulfate (Ventolin Neb Soln) 2.5 mg 1X ONCE NEB Last administered on 07/06/19at 00:56; Start 07/05/19 at 22:30; Stop 07/05/19 at 22:31; Status DC Insulin Human Regular (HumuLIN R VIAL) 5 unit 1X ONCE IV Last administered on 07/05/19at 22:14; Start 07/05/19 at 22:30; Stop 07/05/19 at 22:31; Status DC Magnesium Sulfate 50 ml @ 25 mls/hr 1X ONCE IV Last administered on 07/06/19at 02:57; Start 07/06/19 at 03:00; Stop 07/06/19 at 04:59; Status DC Calcium Gluconate 1000 mg/Sodium Chloride 110 ml @ 220 mls/hr 1X ONCE IV Last administered on 07/06/19at 02:46; Start 07/06/19 at 03:00; Stop 07/06/19 at 03:29; Status DC Sodium Chloride 1,000 ml @ 200 mls/hr Q5H IV Last administered on 07/06/19at 02:46; Start 07/06/19 at 03:00; Stop 07/06/19 at 10:21; Status DC Calcium Gluconate 1000 mg/Sodium Chloride 110 ml @ 220 mls/hr 1X ONCE IV Last administered on 07/06/19at 03:21; Start 07/06/19 at 03:30; Stop 07/06/19 at 03:59; Status DC Sodium Bicarbonate 50 meq/Sodium Chloride 1,050 ml @ 75 mls/hr Q14H IV Last administered on 07/10/19at 21:10; Start 07/06/19 at 07:30; Stop 07/11/19 at 10:28; Status DC Calcium Gluconate 2000 mg/Sodium Chloride 120 ml @ 220 mls/hr 1X ONCE IV Last administered on 07/06/19at 09:05; Start 07/06/19 at 07:30; Stop 07/06/19 at 08:02; Status DC Lidocaine HCl (Xylocaine-Mpf 1% 2ml Vial) 2 ml STK-MED ONCE .ROUTE ; Start 07/06/19 at 08:47; Stop 07/06/19 at 08:47; Status DC Meropenem 500 mg/ Sodium Chloride 50 ml @ 100 mls/hr Q12HR IV Last administered on 07/11/19at 21:01; Start 07/06/19 at 18:00; Stop 07/12/19 at 07:58; Status DC Lidocaine HCl (Buffered Lidocaine 1%) 3 ml STK-MED ONCE .ROUTE ; Start 07/06/19 at 09:46; Stop 07/06/19 at 09:46; Status DC Lidocaine HCl (Buffered Lidocaine 1%) 6 ml 1X ONCE INJ Last administered on 07/06/19at 10:26; Start 07/06/19 at 10:15; Stop 07/06/19 at 10:16; Status DC Info (Tpn Per Pharmacy) 1 each PRN DAILY PRN MC SEE COMMENTS Last administered on 09/07/19at 10:01; Start 07/06/19 at 12:00 Sodium Chloride 1,000 ml @ 1,000 mls/hr Q1H PRN IV hypotension; Start 07/06/19 at 12:07; Stop 07/06/19 at 18:06; Status DC Diphenhydramine HCl (Benadryl) 25 mg 1X PRN PRN IV ITCHING; Start 07/06/19 at 12:15; Stop 07/07/19 at 12:14; Status DC Diphenhydramine HCl (Benadryl) 25 mg 1X PRN PRN IV ITCHING; Start 07/06/19 at 12:15; Stop 07/07/19 at 12:14; Status DC Sodium Chloride 1,000 ml @ 400 mls/hr Q2H30M PRN IV PATENCY; Start 07/06/19 at 12:07; Stop 07/07/19 at 00:06; Status DC Info (PHARMACY MONITORING -- do not chart) 1 each PRN DAILY PRN MC SEE COMMENTS; Start 07/06/19 at 12:15; Stop 07/08/19 at 08:13; Status DC Sodium Chloride 90 meq/Calcium Gluconate 10 meq/ Multivitamins 10 ml/Chromium/ C opper/Manganese/ Seleni/Zn 1 ml/ Total Parenteral Nutrition/Amino Acids/Dextrose/ Fat Emulsion Intravenous 55.005 ml @ 2.292 mls/hr TPN CONT IV ; Start 07/06/19 at 22:00; Stop 07/06/19 at 12:33; Status DC Info (Tpn Per Pharmacy) 1 each PRN DAILY PRN MC SEE COMMENTS; Start 07/06/19 at 12:30; Status UNV Sodium Chloride 90 meq/Calcium Gluconate 10 meq/ Multivitamins 10 ml/Chromium/ Copper/Manganese/ Seleni/Zn 0.5 ml/ Total Parenteral Nutrition/Amino Acids/Dextrose/ Fat Emulsion Intravenous 1,512 ml @ 63 mls/hr TPN CONT IV Last administered on 07/06/19at 22:06; Start 07/06/19 at 22:00; Stop 07/07/19 at 21:59; Status DC Calcium Carbonate/ Glycine (Tums) 500 mg PRN AFTMEALHC PRN PO INDIGESTION; Start 07/06/19 at 17:45; Stop 08/31/19 at 10:25; Status DC Calcium Gluconate (Calcium Gluconate) 2,000 mg 1X ONCE IVP Last administered on 07/07/19at 02:19; Start 07/07/19 at 02:15; Stop 07/07/19 at 02:16; Status DC Calcium Chloride 3000 mg/Sodium Chloride 1,030 ml @ 50 mls/hr [id number] IV Last administered on 07/09/19at 02:17; Start 07/07/19 at 08:00; Stop 07/09/19 at 15:23; Status DC Lorazepam (Ativan Inj) 1 mg PRN Q4HRS PRN IVP ANXIETY / AGITATION, 2nd choic Last administered on 08/05/19at 03:51; Start 07/07/19 at 09:00; Stop 08/05/19 at 09:19; Status DC Sodium Chloride 1,000 ml @ 1,000 mls/hr Q1H PRN IV hypotension; Start 07/07/19 at 08:56; Stop 07/07/19 at 14:55; Status DC Albumin Human 200 ml @ 200 mls/hr 1X PRN PRN IV Hypotension; Start 07/07/19 at 09:00; Stop 07/07/19 at 14:59; Status DC Diphenhydramine HCl (Benadryl) 25 mg 1X PRN PRN IV ITCHING; Start 07/07/19 at 09:00; Stop 07/08/19 at 08:59; Status DC Diphenhydramine HCl (Benadryl) 25 mg 1X PRN PRN IV ITCHING; Start 07/07/19 at 09:00; Stop 07/08/19 at 08:59; Status DC Sodium Chloride 1,000 ml @ 400 mls/hr Q2H30M PRN IV PATENCY; Start 07/07/19 at 08:56; Stop 07/07/19 at 20:55; Status DC Info (PHARMACY MONITORING -- do not chart) 1 each PRN DAILY PRN MC SEE COMMENTS; Start 07/07/19 at 09:00; Status UNV Info (PHARMACY MONITORING -- do not chart) 1 each PRN DAILY PRN MC SEE COMMENTS; Start 07/07/19 at 09:00; Stop 07/08/19 at 08:13; Status DC Digoxin (Lanoxin) 500 mcg 1X ONCE IV Last administered on 07/07/19at 10:04; Start 07/07/19 at 10:00; Stop 07/07/19 at 10:01; Status DC Digoxin (Lanoxin) 125 mcg 1X ONCE IV Last administered on 07/07/19at 17:10; Start 07/07/19 at 18:00; Stop 07/07/19 at 18:01; Status DC Magnesium Sulfate 100 ml @ 25 mls/hr 1X ONCE IV Last administered on 07/07/19at 12:48; Start 07/07/19 at 13:00; Stop 07/07/19 at 16:59; Status DC Sodium Chloride 90 meq/Magnesium Sulfate 10 meq/ Calcium Gluconate 20 meq/ Multivitamins 10 ml/Chromium/ Copper/Manganese/ Seleni/Zn 0.5 ml/ Total Parenteral Nutrition/Amino Acids/Dextrose/ Fat Emulsion Intravenous 1,512 ml @ 63 mls/hr TPN CONT IV Last administered on 07/07/19at 22:25; Start 07/07/19 at 22:00; Stop 07/08/19 at 21:59; Status DC Sodium Chloride 1,000 ml @ 1,000 mls/hr Q1H PRN IV hypotension; Start 07/08/19 at 08:05; Stop 07/08/19 at 14:04; Status DC Albumin Human 200 ml @ 200 mls/hr 1X ONCE IV Last administered on 07/08/19at 08:57; Start 07/08/19 at 08:15; Stop 07/08/19 at 09:14; Status DC Diphenhydramine HCl (Benadryl) 25 mg 1X PRN PRN IV ITCHING; Start 07/08/19 at 08:15; Stop 07/09/19 at 08:14; Status DC Diphenhydramine HCl (Benadryl) 25 mg 1X PRN PRN IV ITCHING; Start 07/08/19 at 08:15; Stop 07/09/19 at 08:14; Status DC Sodium Chloride 1,000 ml @ 400 mls/hr Q2H30M PRN IV PATENCY; Start 07/08/19 at 08:05; Stop 07/08/19 at 20:04; Status DC Info (PHARMACY MONITORING -- do not chart) 1 each PRN DAILY PRN MC SEE COMMENTS; Start 07/08/19 at 08:15; Stop 07/12/19 at 07:57; Status DC Sodium Chloride 90 meq/Potassium Chloride 15 meq/ Potassium Phosphate 10 mmol/ Magnesium Sulfate 10 meq/Calcium Gluconate 20 meq/ Multivitamins 10 ml/Chromium/ Copper/Manganese/ Seleni/Zn 0.5 ml/ Total Parenteral Nutrition/Amino Acids/Dextrose/ Fat Emulsion Intravenous 1,512 ml @ 63 mls/hr TPN CONT IV Last administered on 07/08/19at 21:01; Start 07/08/19 at 22:00; Stop 07/09/19 at 21:59; Status DC Potassium Chloride/Water 100 ml @ 100 mls/hr 1X ONCE IV Last administered on 07/08/19at 14:09; Start 07/08/19 at 14:00; Stop 07/08/19 at 14:59; Status DC Benzocaine (Hurricaine One) 1 spray 1X ONCE MM Last administered on 07/08/19at 16:38; Start 07/08/19 at 14:30; Stop 07/08/19 at 14:31; Status DC Lidocaine HCl (Glydo (Lidocaine) Jelly) 1 ramu 1X ONCE MM Last administered on 07/08/19at 16:38; Start 07/08/19 at 14:30; Stop 07/08/19 at 14:31; Status DC Linezolid/Dextrose 300 ml @ 300 mls/hr Q12HR IV Last administered on 07/14/19at 21:04; Start 07/08/19 at 20:00; Stop 07/15/19 at 07:50; Status DC Acetaminophen (Tylenol) 650 mg PRN Q6HRS PRN PO MILD PAIN / TEMP; Start 07/09/19 at 03:30; Stop 07/09/19 at 03:36; Status DC Acetaminophen (Tylenol) 650 mg PRN Q6HRS PRN PEG MILD PAIN / TEMP Last administered on 08/04/19at 19:56; Start 07/09/19 at 03:36; Stop 08/31/19 at 10:25; Status DC Sodium Chloride 1,000 ml @ 1,000 mls/hr Q1H PRN IV hypotension; Start 07/09/19 at 07:50; Stop 07/09/19 at 13:49; Status DC Albumin Human 200 ml @ 200 mls/hr 1X PRN PRN IV Hypotension; Start 07/09/19 at 08:00; Stop 07/09/19 at 13:59; Status DC Sodium Chloride (Normal Saline Flush) 10 ml 1X PRN PRN IV AP catheter pack; Start 07/09/19 at 08:00; Stop 07/10/19 at 07:59; Status DC Sodium Chloride (Normal Saline Flush) 10 ml 1X PRN PRN IV AUTOMATIC LINE SET UP MECHANIC catheter pack; Start 07/09/19 at 08:00; Stop 07/10/19 at 07:59; Status DC Sodium Chloride 1,000 ml @ 400 mls/hr Q2H30M PRN IV PATENCY; Start 07/09/19 at 07:50; Stop 07/09/19 at 19:49; Status DC Info (PHARMACY MONITORING -- do not chart) 1 each PRN DAILY PRN MC SEE COMMENTS; Start 07/09/19 at 08:00; Status UNV Info (PHARMACY MONITORING -- do not chart) 1 each PRN DAILY PRN MC SEE COMMENTS; Start 07/09/19 at 08:00; Stop 07/11/19 at 08:25; Status DC Sodium Chloride 90 meq/Potassium Chloride 15 meq/ Potassium Phosphate 10 mmol/ Magnesium Sulfate 10 meq/Calcium Gluconate 20 meq/ Multivitamins 10 ml/Chromium/ Copper/Manganese/ Seleni/Zn 0.5 ml/ Total Parenteral Nutrition/Amino Acids/De xtrose/ Fat Emulsion Intravenous 1,512 ml @ 63 mls/hr TPN CONT IV Last administered on 07/09/19at 20:57; Start 07/09/19 at 22:00; Stop 07/10/19 at 21:59; Status DC Sodium Chloride 90 meq/Potassium Chloride 15 meq/ Potassium Phosphate 15 mmol/ Magnesium Sulfate 10 meq/Calcium Gluconate 20 meq/ Multivitamins 10 ml/Chromium/ Copper/Manganese/ Seleni/Zn 0.5 ml/ Total Parenteral Nutrition/Amino Acids/Dextrose/ Fat Emulsion Intravenous 1,512 ml @ 63 mls/hr TPN CONT IV ; Start 07/10/19 at 22:00; Stop 07/10/19 at 14:16; Status DC Sodium Chloride 90 meq/Potassium Chloride 15 meq/ Potassium Phosphate 15 mmol/ Magnesium Sulfate 10 meq/Calcium Gluconate 20 meq/ Multivitamins 10 ml/Chromium/ Copper/Manganese/ Seleni/Zn 0.5 ml/ Total Parenteral Nutrition/Amino Acids /Dextrose/ Fat Emulsion Intravenous 1,200 ml @ 50 mls/hr TPN CONT IV ; Start 07/10/19 at 22:00; Stop 07/10/19 at 14:17; Status DC Sodium Chloride 90 meq/Potassium Chloride 15 meq/ Potassium Phosphate 10 mmol/ Magnesium Sulfate 10 meq/Calcium Gluconate 20 meq/ Multivitamins 10 ml/Chromium/ Copper/Manganese/ Seleni/Zn 0.5 ml/ Total Parenteral Nutrition/Amino Acids/Dextrose/ Fat Emulsion Intravenous 1,200 ml @ 50 mls/hr TPN CONT IV Last administered on 07/10/19at 23:29; Start 07/10/19 at 22:00; Stop 07/11/19 at 21:59; Status DC Sodium Chloride 1,000 ml @ 1,000 mls/hr Q1H PRN IV hypotension; Start 07/11/19 at 07:28; Stop 07/11/19 at 13:27; Status DC Albumin Human 200 ml @ 200 mls/hr 1X ONCE IV Last administered on 07/11/19at 08:51; Start 07/11/19 at 07:30; Stop 07/11/19 at 08:29; Status DC Diphenhydramine HCl (Benadryl) 25 mg 1X PRN PRN IV ITCHING; Start 07/11/19 at 07:30; Stop 07/12/19 at 07:29; Status DC Diphenhydramine HCl (Benadryl) 25 mg 1X PRN PRN IV ITCHING; Start 07/11/19 at 07:30; Stop 07/12/19 at 07:29; Status DC Sodium Chloride 1,000 ml @ 400 mls/hr Q2H30M PRN IV PATENCY; Start 07/11/19 at 07:28; Stop 07/11/19 at 19:27; Status DC Info (PHARMACY MONITORING -- do not chart) 1 each PRN DAILY PRN MC SEE COMMENTS; Start 07/11/19 at 07:30; Stop 07/22/19 at 13:01; Status DC Metronidazole 100 ml @ 100 mls/hr Q6HRS IV Last administered on 07/27/19at 06:26; Start 07/11/19 at 08:30; Stop 07/27/19 at 09:58; Status DC Micafungin Sodium 100 mg/Dextrose 100 ml @ 100 mls/hr Q24H IV Last administered on 08/18/19at 08:18; Start 07/11/19 at 09:00; Stop 08/18/19 at 20:58; Status DC Propofol 0 ml @ As Directed STK-MED ONCE IV ; Start 07/11/19 at 07:53; Stop 07/11/19 at 07:53; Status DC Etomidate (Amidate) 20 mg STK-MED ONCE IV ; Start 07/11/19 at 07:53; Stop 07/11/19 at 07:54; Status DC Midazolam HCl (Versed) 5 mg STK-MED ONCE .ROUTE ; Start 07/11/19 at 07:57; Stop 07/11/19 at 07:57; Status DC Fentanyl Citrate 30 ml @ 0 mls/hr CONT PRN IV SEE PROTOCOL Last administered on 08/05/19at 06:12; Start 07/11/19 at 08:15; Stop 08/05/19 at 09:19; Status DC Artificial Tears (Artificial Tears) 1 drop PRN Q1HR PRN OU DRY EYE, 1st choice; Start 07/11/19 at 08:15; Stop 08/17/19 at 05:31; Status DC Midazolam HCl 50 mg/Sodium Chloride 50 ml @ 0 mls/hr CONT PRN IV SEE PROTOCOL Last administered on 07/14/19at 22:39; Start 07/11/19 at 08:15; Stop 07/16/19 at 15:59; Status DC Etomidate (Amidate) 8 mg 1X ONCE IV Last administered on 07/11/19at 08:33; Start 07/11/19 at 08:30; Stop 07/11/19 at 08:31; Status DC Succinylcholine Chloride (Anectine) 120 mg 1X ONCE IV Last administered on 07/11/19at 08:34; Start 07/11/19 at 08:30; Stop 07/11/19 at 08:31; Status DC Midazolam HCl (Versed) 5 mg 1X ONCE IV ; Start 07/11/19 at 08:30; Stop 07/11/19 at 08:31; Status DC Potassium Chloride 15 meq/ Bicarbonate Dialysis Soln w/ out KCl 5,007.5 ml @ 1,000 mls/ hr Q5H1M IV Last administered on 07/12/19at 11:11; Start 07/11/19 at 12:00; Stop 07/12/19 at 11:15; Status DC Potassium Chloride 15 meq/ Bicarbonate Dialysis Soln w/ out KCl 5,007.5 ml @ 1,000 mls/ hr Q5H1M IV Last administered on 07/12/19at 11:12; Start 07/11/19 at 12:00; Stop 07/12/19 at 11:17; Status DC Potassium Chloride 15 meq/ Bicarbonate Dialysis Soln w/ out KCl 5,007.5 ml @ 1,000 mls/ hr Q5H1M IV Last administered on 07/12/19at 11:11; Start 07/11/19 at 12:00; Stop 07/12/19 at 11:19; Status DC Sodium Chloride 90 meq/Potassium Chloride 15 meq/ Potassium Phosphate 10 mmol/ Magnesium Sulfate 10 meq/Calcium Gluconate 20 meq/ Multivitamins 10 ml/Chromium/ Copper/Manganese/ Seleni/Zn 0.5 ml/ Total Parenteral Nutrition/Amino Acids/Dextrose/ Fat Emulsion Intravenous 1,400 ml @ 58.333 mls/ hr TPN CONT IV Last administered on 07/11/19at 21:42; Start 07/11/19 at 22:00; Stop 07/12/19 at 21:59; Status DC Heparin Sodium (Porcine) (Heparin Sodium) 5,000 unit Q8HRS SQ Last administered on 07/16/19at 05:55; Start 07/11/19 at 15:00; Stop 07/16/19 at 13:28; Status DC Meropenem 500 mg/ Sodium Chloride 50 ml @ 100 mls/hr Q6HRS IV Last administered on 07/13/19at 06:00; Start 07/12/19 at 09:00; Stop 07/13/19 at 07:29; Status DC Potassium Phosphate 20 mmol/ Sodium Chloride 106.6667 ml @ 51.667 m... 1X ONCE IV Last administered on 07/12/19at 11:22; Start 07/12/19 at 10:15; Stop 07/12/19 at 12:18; Status DC Acetaminophen (Tylenol Supp) 650 mg PRN Q6HRS PRN IA MILD PAIN / TEMP > 100.3'F Last administered on 08/23/19at 09:12; Start 07/12/19 at 10:30 Potassium Chloride/Water 100 ml @ 100 mls/hr Q1H IV Last administered on 07/12/19at 12:12; Start 07/12/19 at 11:00; Stop 07/12/19 at 12:59; Status DC Potassium Chloride 20 meq/ Bicarbonate Dialysis Soln w/ out KCl 5,010 ml @ 1,000 mls/hr Q5H1M IV Last administered on 07/13/19at 08:48; Start 07/12/19 at 12:00; Stop 07/13/19 at 13:03; Status DC Potassium Chloride 20 meq/ Bicarbonate Dialysis Soln w/ out KCl 5,010 ml @ 1,000 mls/hr Q5H1M IV Last administered on 07/17/19at 14:52; Start 07/12/19 at 11:30; Stop 07/17/19 at 19:59; Status DC Potassium Chloride 20 meq/ Bicarbonate Dialysis Soln w/ out KCl 5,010 ml @ 1,000 mls/hr Q5H1M IV Last administered on 07/17/19at 14:53; Start 07/12/19 at 11:30; Stop 07/17/19 at 19:59; Status DC Sodium Chloride 90 meq/Potassium Chloride 15 meq/ Potassium Phosphate 15 mmol/ Magnesium Sulfate 10 meq/Calcium Gluconate 15 meq/ Multivitamins 10 ml/Chromium/ Copper/Manganese/ Seleni/Zn 0.5 ml/ Total Parenteral Nutrition/Amino Acids/Dextrose/ Fat Emulsion Intravenous 1,400 ml @ 58.333 mls/ hr TPN CONT IV Last administered on 07/12/19at 22:17; Start 07/12/19 at 22:00; Stop 07/13/19 at 21:59; Status DC Cefepime HCl (Maxipime) 2 gm Q12HR IVP Last administered on 07/26/19at 20:56; Start 07/13/19 at 09:00; Stop 07/27/19 at 09:58; Status DC Daptomycin 500 mg/ Sodium Chloride 50 ml @ 100 mls/hr Q48H IV Last administered on 07/29/19at 09:57; Start 07/13/19 at 08:30; Stop 07/29/19 at 10:07; Status DC Lidocaine HCl (Buffered Lidocaine 1%) 3 ml 1X ONCE INJ Last administered on 07/13/19at 10:27; Start 07/13/19 at 10:30; Stop 07/13/19 at 10:31; Status DC Potassium Phosphate 20 mmol/ Sodium Chloride 106.6667 ml @ 51.667 m... 1X ONCE IV Last administered on 07/13/19at 12:51; Start 07/13/19 at 13:00; Stop 07/13/19 at 15:03; Status DC Sodium Chloride 90 meq/Potassium Chloride 15 meq/ Potassium Phosphate 18 mmol/ Magnesium Sulfate 8 meq/Calcium Gluconate 15 meq/ Multivitamins 10 ml/Chromium/ Copper/Manganese/ Seleni/Zn 0.5 ml/ Total Parenteral Nutrition/Amino Acids/Dextrose/ Fat Emulsion Intravenous 1,400 ml @ 58.333 mls/ hr TPN CONT IV Last administered on 07/13/19at 22:16; Start 07/13/19 at 22:00; Stop 07/14/19 at 21:59; Status DC Potassium Chloride 20 meq/ Bicarbonate Dialysis Soln w/ out KCl 5,010 ml @ 1,000 mls/hr Q5H1M IV Last administered on 07/17/19at 14:54; Start 07/13/19 at 16:00; Stop 07/17/19 at 19:59; Status DC Multi-Ingred Cream/Lotion/Oil/ Oint (Artificial Tears Eye Ointment) 1 ramu PRN Q1HR PRN OU DRY EYE, 2nd choice Last administered on 08/01/19at 08:19; Start 07/13/19 at 17:30 Sodium Chloride 90 meq/Potassium Chloride 15 meq/ Potassium Phosphate 18 mmol/ Magnesium Sulfate 8 meq/Calcium Gluconate 15 meq/ Multivitamins 10 ml/Chromium/ Copper/Manganese/ Seleni/Zn 0.5 ml/ Total Parenteral Nutrition/Amino Acids/Dextrose/ Fat Emulsion Intravenous 1,400 ml @ 58.333 mls/ hr TPN CONT IV Last administered on 07/14/19at 22:00; Start 07/14/19 at 22:00; Stop 07/15/19 at 21:59; Status DC Albumin Human 500 ml @ 125 mls/hr 1X ONCE IV ; Start 07/14/19 at 14:15; Stop 07/14/19 at 18:14; Status DC Sodium Chloride 90 meq/Potassium Chloride 15 meq/ Potassium Phosphate 18 mmol/ Magnesium Sulfate 8 meq/Calcium Gluconate 15 meq/ Multivitamins 10 ml/Chromium/ Copper/Manganese/ Seleni/Zn 0.5 ml/ Insulin Human Regular 10 unit/ Total Parenteral Nutrition/Amino Acids/Dextrose/ Fat Emulsion Intravenous 1,400 ml @ 58.333 mls/ hr TPN CONT IV Last administered on 07/15/19at 21:43; Start 0 at 22:00; Stop 07/16/19 at 21:59; Status DC Lidocaine HCl (Buffered Lidocaine 1%) 3 ml STK-MED ONCE .ROUTE ; Start 07/13/19 at 10:00; Stop 07/15/19 at 13:57; Status DC Midazolam HCl 100 mg/Sodium Chloride 100 ml @ 7 mls/hr CONT PRN IV SEE PROTOCOL Last administered on 07/27/19at 15:35; Start 07/16/19 at 16:00 Sodium Chloride 90 meq/Potassium Chloride 15 meq/ Potassium Phosphate 18 mmol/ Magnesium Sulfate 8 meq/Calcium Gluconate 15 meq/ Multivitamins 10 ml/Chromium/ Copper/Manganese/ Seleni/Zn 0.5 ml/ Insulin Human Regular 15 unit/ Total Parenteral Nutrition/Amino Acids/Dextrose/ Fat Emulsion Intravenous 1,400 ml @ 58.333 mls/ hr TPN CONT IV Last administered on 07/16/19at 20:34; Start 07/16/19 at 22:00; Stop 07/17/19 at 21:59; Status DC Info (Icu Electrolyte Protocol) 1 ea CONT PRN PRN MC PER PROTOCOL; Start 07/17/19 at 13:15 Sodium Chloride 90 meq/Potassium Chloride 15 meq/ Potassium Phosphate 18 mmol/ Magnesium Sulfate 8 meq/Calcium Gluconate 15 meq/ Multivitamins 10 ml/Chromium/ Copper/Manganese/ Seleni/Zn 0.5 ml/ Insulin Human Regular 15 unit/ Total Parenteral Nutrition/Amino Acids/Dextrose/ Fat Emulsion Intravenous 1,400 ml @ 58.333 mls/ hr TPN CONT IV Last administered on 07/17/19at 22:05; Start 07/17/19 at 22:00; Stop 07/18/19 at 21:59; Status DC Potassium Chloride 15 meq/ Bicarbonate Dialysis Soln w/ out KCl 5,007.5 ml @ 1,000 mls/ hr Q5H1M IV Last administered on 07/20/19at 18:14; Start 07/17/19 at 20:00; Stop 07/21/19 at 13:08; Status DC Potassium Chloride 15 meq/ Bicarbonate Dialysis Soln w/ out KCl 5,007.5 ml @ 1,000 mls/ hr Q5H1M IV Last administered on 07/20/19at 18:14; Start 07/17/19 at 20:00; Stop 07/21/19 at 13:08; Status DC Potassium Chloride 15 meq/ Bicarbonate Dialysis Soln w/ out KCl 5,007.5 ml @ 1,000 mls/ hr Q5H1M IV Last administered on 07/20/19at 18:14; Start 07/17/19 at 20:00; Stop 07/21/19 at 13:08; Status DC Iohexol (Omnipaque 240 Mg/ml) 30 ml 1X ONCE PO Last administered on 07/18/19at 11:30; Start 07/18/19 at 11:30; Stop 07/18/19 at 11:33; Status DC Info (CONTRAST GIVEN -- Rx MONITORING) 1 each PRN DAILY PRN MC SEE COMMENTS; Start 07/18/19 at 11:45; Stop 07/20/19 at 11:44; Status DC Sodium Chloride 90 meq/Potassium Chloride 15 meq/ Potassium Phosphate 18 mmol/ Magnesium Sulfate 8 meq/Calcium Gluconate 15 meq/ Multivitamins 10 ml/Chromium/ Copper/Manganese/ Seleni/Zn 0.5 ml/ Insulin Human Regular 15 unit/ Total Parenteral Nutrition/Amino Acids/Dextrose/ Fat Emulsion Intravenous 1,400 ml @ 58.333 mls/ hr TPN CONT IV Last administered on 07/18/19at 21:47; Start 07/18/19 at 22:00; Stop 07/19/19 at 21:59; Status DC Sodium Chloride 90 meq/Potassium Chloride 15 meq/ Potassium Phosphate 18 mmol/ Magnesium Sulfate 8 meq/Calcium Gluconate 15 meq/ Multivitamins 10 ml/Chromium/ Copper/Manganese/ Seleni/Zn 0.5 ml/ Insulin Human Regular 20 unit/ Total Parenteral Nutrition/Amino Acids/Dextrose/ Fat Emulsion Intravenous 1,400 ml @ 58.333 mls/ hr TPN CONT IV Last administered on 07/19/19at 21:36; Start 07/19/19 at 22:00; Stop 07/20/19 at 21:59; Status DC Alteplase, Recombinant (Cathflo For Central Catheter Clearance) 1 mg 1X ONCE INT CAT Last administered on 07/19/19at 20:03; Start 07/19/19 at 19:30; Stop 07/19/19 at 19:46; Status DC Alteplase, Recombinant (Cathflo For Central Catheter Clearance) 1 mg 1X ONCE INT CAT Last administered on 07/19/19at 22:05; Start 07/19/19 at 22:00; Stop 07/19/19 at 22:01; Status DC Sodium Chloride 90 meq/Potassium Chloride 15 meq/ Potassium Phosphate 18 mmol/ Magnesium Sulfate 8 meq/Calcium Gluconate 15 meq/ Multivitamins 10 ml/Chromium/ Copper/Manganese/ Seleni/Zn 0.5 ml/ Insulin Human Regular 20 unit/ Total Parenteral Nutrition/Amino Acids/Dextrose/ Fat Emulsion Intravenous 1,400 ml @ 58.333 mls/ hr TPN CONT IV Last administered on 07/20/19at 21:30; Start 07/20/19 at 22:00; Stop 07/21/19 at 21:59; Status DC Dexmedetomidine HCl 400 mcg/ Sodium Chloride 100 ml @ 0 mls/hr CONT PRN IV ANXIETY / AGITATION Last administered on 09/07/19at 05:00; Start 07/21/19 at 08:15 Sodium Chloride 500 ml @ 500 mls/hr 1X PRN PRN IV ELEVATED BP, SEE COMMENTS; Start 07/21/19 at 08:15 Atropine Sulfate (ATROPINE 0.5mg SYRINGE) 0.5 mg PRN Q5MIN PRN IV SEE COMMENTS; Start 07/21/19 at 08:15 Furosemide (Lasix) 20 mg 1X ONCE IVP Last administered on 07/21/19at 08:19; Start 07/21/19 at 08:15; Stop 07/21/19 at 08:16; Status DC Lidocaine HCl (Buffered Lidocaine 1%) 3 ml STK-MED ONCE .ROUTE ; Start 07/21/19 at 08:39; Stop 07/21/19 at 08:39; Status DC Lidocaine HCl (Buffered Lidocaine 1%) 6 ml 1X ONCE INJ Last administered on 07/21/19at 09:05; Start 07/21/19 at 09:00; Stop 07/21/19 at 09:06; Status DC Sodium Chloride 90 meq/Potassium Chloride 15 meq/ Potassium Phosphate 18 mmol/ Magnesium Sulfate 8 meq/Calcium Gluconate 15 meq/ Multivitamins 10 ml/Chromium/ Copper/Manganese/ Seleni/Zn 0.5 ml/ Insulin Human Regular 20 unit/ Total Parenteral Nutrition/Amino Acids/Dextrose/ Fat Emulsion Intravenous 1,400 ml @ 58.333 mls/ hr TPN CONT IV Last administered on 07/21/19at 22:45; Start 07/21/19 at 22:00; Stop 07/22/19 at 21:59; Status DC Sodium Chloride 1,000 ml @ 1,000 mls/hr Q1H PRN IV hypotension; Start 07/22/19 at 07:30; Stop 07/22/19 at 13:29; Status DC Albumin Human 200 ml @ 200 mls/hr 1X PRN PRN IV Hypotension Last administered on 07/22/19at 09:36; Start 07/22/19 at 07:30; Stop 07/22/19 at 13:29; Status DC Sodium Chloride (Normal Saline Flush) 10 ml 1X PRN PRN IV AP catheter pack; Start 07/22/19 at 07:30; Stop 07/22/19 at 21:29; Status DC Sodium Chloride (Normal Saline Flush) 10 ml 1X PRN PRN IV AUTOMATIC LINE SET UP MECHANIC catheter pack; Start 07/22/19 at 07:30; Stop 07/23/19 at 07:29; Status DC Sodium Chloride 1,000 ml @ 400 mls/hr Q2H30M PRN IV PATENCY; Start 07/22/19 at 07:30; Stop 07/22/19 at 19:29; Status DC Info (PHARMACY MONITORING -- do not chart) 1 each PRN DAILY PRN MC SEE COMMENTS; Start 07/22/19 at 07:30; Stop 07/22/19 at 13:02; Status DC Info (PHARMACY MONITORING -- do not chart) 1 each PRN DAILY PRN MC SEE COMMENTS; Start 07/22/19 at 07:30; Stop 07/24/19 at 12:45; Status DC Sodium Chloride 90 meq/Potassium Chloride 15 meq/ Potassium Phosphate 10 mmol/ Magnesium Sulfate 8 meq/Calcium Gluconate 15 meq/ Multivitamins 10 ml/Chromium/ Copper/Manganese/ Seleni/Zn 0.5 ml/ Insulin Human Regular 25 unit/ Total Parenteral Nutrition/Amino Acids/Dextrose/ Fat Emulsion Intravenous 1,400 ml @ 58.333 mls/ hr TPN CONT IV Last administered on 07/22/19at 22:19; Start 07/22/19 at 22:00; Stop 07/23/19 at 21:59; Status DC Heparin Sodium (Porcine) (Heparin Sodium) 5,000 unit Q12HR SQ Last administered on 08/14/19at 08:59; Start 07/22/19 at 21:00; Stop 08/14/19 at 10:05; Status DC Ondansetron HCl (Zofran) 4 mg PRN Q6HRS PRN IV NAUSEA/VOMITING; Start 07/25/19 at 07:00; Stop 07/26/19 at 06:59; Status DC Fentanyl Citrate (Fentanyl 2ml Vial) 25 mcg PRN Q5MIN PRN IV MILD PAIN 1-3; Start 07/25/19 at 07:00; Stop 07/26/19 at 06:59; Status DC Fentanyl Citrate (Fentanyl 2ml Vial) 50 mcg PRN Q5MIN PRN IV MODERATE TO SEVERE PAIN; Start 07/25/19 at 07:00; Stop 07/26/19 at 06:59; Status DC Ringer's Solution 1,000 ml @ 30 mls/hr Q24H IV ; Start 07/25/19 at 07:00; Stop 07/25/19 at 18:59; Status DC Lidocaine HCl (Xylocaine-Mpf 1% 2ml Vial) 2 ml PRN 1X PRN ID PRIOR TO IV START; Start 07/25/19 at 07:00; Stop 07/26/19 at 06:59; Status DC Prochlorperazine Edisylate (Compazine) 5 mg PACU PRN PRN IV NAUSEA, MRX1; Start 07/25/19 at 07:00; Stop 07/26/19 at 06:59; Status DC Sodium Chloride 1,000 ml @ 1,000 mls/hr Q1H PRN IV hypotension; Start 07/23/19 at 09:10; Stop 07/23/19 at 15:09; Status DC Albumin Human 200 ml @ 200 mls/hr 1X PRN PRN IV Hypotension Last administered on 07/23/19at 10:10; Start 07/23/19 at 09:15; Stop 07/23/19 at 15:14; Status DC Sodium Chloride 1,000 ml @ 400 mls/hr Q2H30M PRN IV PATENCY; Start 07/23/19 at 09:10; Stop 07/23/19 at 21:09; Status DC Info (PHARMACY MONITORING -- do not chart) 1 each PRN DAILY PRN MC SEE COMMENTS; Start 07/23/19 at 09:15; Stop 07/24/19 at 12:45; Status DC Info (PHARMACY MONITORING -- do not chart) 1 each PRN DAILY PRN MC SEE COMMENTS; Start 07/23/19 at 09:15; Stop 07/24/19 at 12:45; Status DC Sodium Chloride 90 meq/Potassium Chloride 15 meq/ Potassium Phosphate 10 mmol/ Magnesium Sulfate 8 meq/Calcium Gluconate 15 meq/ Multivitamins 10 ml/Chromium/ Copper/Manganese/ Seleni/Zn 0.5 ml/ Insulin Human Regular 25 unit/ Total Parenteral Nutrition/Amino Acids/Dextrose/ Fat Emulsion Intravenous 1,400 ml @ 58.333 mls/ hr TPN CONT IV Last administered on 07/23/19at 22:10; Start 07/23/19 at 22:00; Stop 07/24/19 at 21:59; Status DC Magnesium Sulfate 50 ml @ 25 mls/hr PRN DAILY PRN IV for Mag < 1.7 on am labs Last administered on 08/08/19at 17:27; Start 07/24/19 at 09:15 Sodium Chloride 90 meq/Potassium Chloride 15 meq/ Potassium Phosphate 10 mmol/ Magnesium Sulfate 8 meq/Calcium Gluconate 15 meq/ Multivitamins 10 ml/Chromium/ Copper/Manganese/ Seleni/Zn 0.5 ml/ Insulin Human Regular 25 unit/ Total Parenteral Nutrition/Amino Acids/Dextrose/ Fat Emulsion Intravenous 1,400 ml @ 58.333 mls/ hr TPN CONT IV Last administered on 07/24/19at 21:20; Start 07/24/19 at 22:00; Stop 07/25/19 at 21:59; Status DC Sodium Chloride 1,000 ml @ 1,000 mls/hr Q1H PRN IV hypotension; Start 07/24/19 at 12:23; Stop 07/24/19 at 18:22; Status DC Albumin Human 200 ml @ 200 mls/hr 1X ONCE IV Last administered on 07/24/19at 13:34; Start 07/24/19 at 12:30; Stop 07/24/19 at 13:29; Status DC Diphenhydramine HCl (Benadryl) 25 mg 1X PRN PRN IV ITCHING; Start 07/24/19 at 12:30; Stop 07/25/19 at 12:29; Status DC Diphenhydramine HCl (Benadryl) 25 mg 1X PRN PRN IV ITCHING; Start 07/24/19 at 12:30; Stop 07/25/19 at 12:29; Status DC Info (PHARMACY MONITORING -- do not chart) 1 each PRN DAILY PRN MC SEE COMMENTS; Start 07/24/19 at 12:30; Status Cancel Bupivacaine HCl/ Epinephrine Bitart (Sensorcain-Epi 0.5%-1:[id number] Mpf) 30 ml STK-MED ONCE .ROUTE Last administered on 07/25/19at 11:44; Start 07/25/19 at 11:00 ; Stop 07/25/19 at 11:01; Status DC Cellulose (Surgicel Fibrillar 1x2) 1 each STK-MED ONCE .ROUTE ; Start 07/25/19 at 11:00; Stop 07/25/19 at 11:01; Status DC Sodium Chloride 90 meq/Potassium Chloride 15 meq/ Potassium Phosphate 10 mmol/ Magnesium Sulfate 12 meq/Calcium Gluconate 15 meq/ Multivitamins 10 ml/Chromium/ Copper/Manganese/ Seleni/Zn 0.5 ml/ Insulin Human Regular 25 unit/ Total Parenteral Nutrition/Amino Acids/Dextrose/ Fat Emulsion Intravenous 1,400 ml @ 58.333 mls/ hr TPN CONT IV Last administered on 07/25/19at 22:24; Start 07/25/19 at 22:00; Stop 07/26/19 at 21:59; Status DC Propofol 20 ml @ As Directed STK-MED ONCE IV ; Start 07/25/19 at 11:07; Stop 07/25/19 at 11:07; Status DC Cellulose (Surgicel Hemostat 4x8) 1 each STK-MED ONCE .ROUTE Last administered on 07/25/19at 11:44; Start 07/25/19 at 11:55; Stop 07/25/19 at 11:56; Status DC Sevoflurane (Ultane) 60 ml STK-MED ONCE IH ; Start 07/25/19 at 12:46; Stop 07/25/19 at 12:46; Status DC Sodium Chloride 1,000 ml @ 1,000 mls/hr Q1H PRN IV hypotension; Start 07/25/19 at 13:51; Stop 07/25/19 at 19:50; Status DC Albumin Human 200 ml @ 200 mls/hr 1X PRN PRN IV Hypotension Last administered on 07/25/19at 14:51; Start 07/25/19 at 14:00; Stop 07/25/19 at 19:59; Status DC Diphenhydramine HCl (Benadryl) 25 mg 1X PRN PRN IV ITCHING; Start 07/25/19 at 14:00; Stop 07/26/19 at 13:59; Status DC Diphenhydramine HCl (Benadryl) 25 mg 1X PRN PRN IV ITCHING; Start 07/25/19 at 14:00; Stop 07/26/19 at 13:59; Status DC Sodium Chloride 1,000 ml @ 400 mls/hr Q2H30M PRN IV PATENCY; Start 07/25/19 at 13:51; Stop 07/26/19 at 01:50; Status DC Info (PHARMACY MONITORING -- do not chart) 1 each PRN DAILY PRN MC SEE COMMENTS; Start 07/25/19 at 14:00; Stop 07/28/19 at 08:16; Status DC Heparin Sodium (Porcine) (Hep Lock Adult) 500 unit STK-MED ONCE IVP ; Start 07/26/19 at 09:29; Stop 07/26/19 at 09:30; Status DC Sodium Chloride 1,000 ml @ 1,000 mls/hr Q1H PRN IV hypotension; Start 07/26/19 at 10:43; Stop 07/26/19 at 16:42; Status DC Sodium Chloride 1,000 ml @ 400 mls/hr Q2H30M PRN IV PATENCY; Start 07/26/19 at 10:43; Stop 07/26/19 at 22:42; Status DC Info (PHARMACY MONITORING -- do not chart) 1 each PRN DAILY PRN MC SEE COMMENTS; Start 07/26/19 at 10:45; Status UNV Info (PHARMACY MONITORING -- do not chart) 1 each PRN DAILY PRN MC SEE LUIS ALBERTO MYERS; Start 07/26/19 at 10:45; Status UNV Sodium Chloride 90 meq/Potassium Chloride 15 meq/ Magnesium Sulfate 12 meq/Calcium Gluconate 15 meq/ Multivitamins 10 ml/Chromium/ Copper/Manganese/ Seleni/Zn 0.5 ml/ Insulin Human Regular 25 unit/ Total Parenteral Nutrition/Amino Acids/Dextrose/ Fat Emulsion Intravenous 1,400 ml @ 58.333 mls/ hr TPN CONT IV Last administered on 07/26/19at 22:13; Start 07/26/19 at 22:00; Stop 07/27/19 at 21:59; Status DC Sodium Chloride 1,000 ml @ 1,000 mls/hr Q1H PRN IV hypotension; Start 07/27/19 at 07:50; Stop 07/27/19 at 13:49; Status DC Albumin Human 200 ml @ 200 mls/hr 1X ONCE IV ; Start 07/27/19 at 08:00; Stop 07/27/19 at 08:53; Status DC Diphenhydramine HCl (Benadryl) 25 mg 1X PRN PRN IV ITCHING; Start 07/27/19 at 08:00; Stop 07/28/19 at 07:59; Status DC Diphenhydramine HCl (Benadryl) 25 mg 1X PRN PRN IV ITCHING; Start 07/27/19 at 08:00; Stop 07/28/19 at 07:59; Status DC Info (PHARMACY MONITORING -- do not chart) 1 each PRN DAILY PRN MC SEE COMMENTS; Start 07/27/19 at 08:00; Stop 07/28/19 at 08:16; Status DC Albumin Human 50 ml @ 50 mls/hr 1X ONCE IV ; Start 07/27/19 at 08:53; Stop 07/27/19 at 08:56; Status DC Albumin Human 200 ml @ 50 mls/hr PRN 1X PRN IV HYPOTENSION Last administered on 08/02/19at 11:54; Start 07/27/19 at 09:00 Meropenem 500 mg/ Sodium Chloride 50 ml @ 100 mls/hr Q12H IV Last administered on 08/16/19at 10:45; Start 07/27/19 at 10:00; Stop 08/16/19 at 12:37; Status DC Sodium Chloride 90 meq/Magnesium Sulfate 12 meq/ Calcium Gluconate 15 meq/ Multivitamins 10 ml/Chromium/ Copper/Manganese/ Seleni/Zn 0.5 ml/ Insulin Human Regular 25 unit/ Total Parenteral Nutrition/Amino Acids/Dextrose/ Fat Emulsion Intravenous 1,400 ml @ 58.333 mls/ hr TPN CONT IV Last administered on 07/27/19at 21:41; Start 07/27/19 at 22:00; Stop 07/28/19 at 21:59; Status DC Sodium Chloride 1,000 ml @ 1,000 mls/hr Q1H PRN IV hypotension; Start 07/28/19 at 07:58; Stop 07/28/19 at 13:57; Status DC Albumin Human 200 ml @ 200 mls/hr 1X PRN PRN IV Hypotension Last administered on 07/28/19at 09:30; Start 07/28/19 at 08:00; Stop 07/28/19 at 13:59; Status DC Sodium Chloride 1,000 ml @ 400 mls/hr Q2H30M PRN IV PATENCY; Start 07/28/19 at 07:58; Stop 07/28/19 at 19:57; Status DC Info (PHARMACY MONITORING -- do not chart) 1 each PRN DAILY PRN MC SEE COMMENT S; Start 07/28/19 at 08:00; Status Cancel Info (PHARMACY MONITORING -- do not chart) 1 each PRN DAILY PRN MC SEE COMMENTS; Start 07/28/19 at 08:15; Status UNV Sodium Chloride 90 meq/Potassium Phosphate 5 mmol/ Magnesium Sulfate 12 meq/Calcium Gluconate 15 meq/ Multivitamins 10 ml/Chromium/ Copper/Manganese/ Seleni/Zn 0.5 ml/ Insulin Human Regular 30 unit/ Total Parenteral Nutritio n/Amino Acids/Dextrose/ Fat Emulsion Intravenous 1,400 ml @ 58.333 mls/ hr TPN CONT IV Last administered on 07/28/19at 22:08; Start 07/28/19 at 22:00; Stop 07/29/19 at 21:59; Status DC Linezolid/Dextrose 300 ml @ 300 mls/hr Q12HR IV Last administered on 08/08/19at 20:40; Start 07/29/19 at 11:00; Stop 08/09/19 at 08:10; Status DC Sodium Chloride 90 meq/Potassium Phosphate 15 mmol/ Magnesium Sulfate 12 meq/Calcium Gluconate 15 meq/ Multivitamins 10 ml/Chromium/ Copper/Manganese/ Seleni/Zn 0.5 ml/ Insulin Human Regular 30 unit/ Total Parenteral Nutrition/Amino Acids/Dextrose/ Fat Emulsion Intravenous 1,400 ml @ 58.333 mls/ hr TPN CONT IV Last administered on 07/29/19at 21:49; Start 07/29/19 at 22:00; Stop 07/30/19 at 21:59; Status DC Sodium Chloride 90 meq/Potassium Phosphate 15 mmol/ Magnesium Sulfate 12 meq/Calcium Gluconate 15 meq/ Multivitamins 10 ml/Chromium/ Copper/Manganese/ Seleni/Zn 0.5 ml/ Insulin Human Regular 40 unit/ Total Parenteral Nutrition/Amino Acids/Dextrose/ Fat Emulsion Intravenous 1,400 ml @ 58.333 mls/ hr TPN CONT IV Last administered on 07/30/19at 21:21; Start 07/30/19 at 22:00; Stop 07/31/19 at 21:59; Status DC Sodium Chloride 1,000 ml @ 1,000 mls/hr Q1H PRN IV hypotension; Start 07/30/19 at 13:26; Stop 07/30/19 at 19:25; Status DC Albumin Human 200 ml @ 200 mls/hr 1X PRN PRN IV Hypotension Last administered on 07/30/19at 15:00; Start 07/30/19 at 13:30; Stop 07/30/19 at 19:29; Status DC Sodium Chloride (Normal Saline Flush) 10 ml 1X PRN PRN IV AP catheter pack; Start 07/30/19 at 13:30; Stop 07/31/19 at 13:29; Status DC Sodium Chloride (Normal Saline Flush) 10 ml 1X PRN PRN IV AUTOMATIC LINE SET UP MECHANIC catheter pack; Start 07/30/19 at 13:30; Stop 07/31/19 at 13:29; Status DC Sodium Chloride 1,000 ml @ 400 mls/hr Q2H30M PRN IV PATENCY; Start 07/30/19 at 13:26; Stop 07/31/19 at 01:25; Status DC Info (PHARMACY MONITORING -- do not chart) 1 each PRN DAILY PRN MC SEE COMMENT S; Start 07/30/19 at 13:30; Stop 07/30/19 at 13:33; Status DC Info (PHARMACY MONITORING -- do not chart) 1 each PRN DAILY PRN MC SEE COMMENTS; Start 07/30/19 at 13:30; Stop 07/30/19 at 13:34; Status DC Sodium Chloride 90 meq/Potassium Phosphate 19 mmol/ Magnesium Sulfate 12 meq/Calcium Gluconate 15 meq/ Multivitamins 10 ml/Chromium/ Copper/Manganese/ Seleni/Zn 0.5 ml/ Insulin Human Regular 40 unit/ Total Parenteral Nutrition/Amino Acids/Dextrose/ Fat Emulsion Intravenous 1,400 ml @ 58.333 mls/ hr TPN CONT IV Last administered on 07/31/19at 21:54; Start 07/31/19 at 22:00; Stop 08/01/19 at 21:59; Status DC Sodium Chloride 1,000 ml @ 1,000 mls/hr Q1H PRN IV hypotension; Start 08/01/19 at 09:35; Stop 08/01/19 at 15:34; Status DC Albumin Human 200 ml @ 200 mls/hr 1X PRN PRN IV Hypotension; Start 08/01/19 at 09:45; Stop 08/01/19 at 15:44; Status DC Diphenhydramine HCl (Benadryl) 25 mg 1X PRN PRN IV ITCHING; Start 08/01/19 at 09:45; Stop 08/02/19 at 09:44; Status DC Diphenhydramine HCl (Benadryl) 25 mg 1X PRN PRN IV ITCHING; Start 08/01/19 at 09:45; Stop 08/02/19 at 09:44; Status DC Sodium Chloride 1,000 ml @ 400 mls/hr Q2H30M PRN IV PATENCY; Start 08/01/19 at 09:35; Stop 08/01/19 at 21:34; Status DC Info (PHARMACY MONITORING -- do not chart) 1 each PRN DAILY PRN MC SEE COMMENTS; Start 08/01/19 at 09:45; Status Cancel Sodium Chloride 100 meq/Potassium Phosphate 19 mmol/ Magnesium Sulfate 12 meq/Calcium Gluconate 15 meq/ Multivitamins 10 ml/Chromium/ Copper/Manganese/ Seleni/Zn 0.5 ml/ Insulin Human Regular 40 unit/ Potassium Chloride 20 meq/ Total Parenteral Nutrition/Amino Acids/Dextrose/ Fat Emulsion Intravenous 1,400 ml @ 58.333 mls/ hr TPN CONT IV Last administered on 08/01/19at 22:02; Start 08/01/19 at 22:00; Stop 08/02/19 at 21:59; Status DC Furosemide (Lasix) 40 mg 1X ONCE IVP Last administered on 08/01/19at 14:39; Start 08/01/19 at 14:30; Stop 08/01/19 at 14:31; Status DC Metronidazole 100 ml @ 100 mls/hr Q8HRS IV Last administered on 08/09/19at 06:04; Start 08/02/19 at 10:00; Stop 08/09/19 at 08:10; Status DC Sodium Chloride 1,000 ml @ 1,000 mls/hr Q1H PRN IV hypotension; Start 08/02/19 at 08:00; Stop 08/02/19 at 13:59; Status DC Albumin Human 200 ml @ 200 mls/hr 1X PRN PRN IV Hypotension; Start 08/02/19 at 08:00; Stop 08/02/19 at 13:59; Status DC Sodium Chloride 1,000 ml @ 400 mls/hr Q2H30M PRN IV PATENCY; Start 08/02/19 at 08:00; Stop 08/02/19 at 19:59; Status DC Info (PHARMACY MONITORING -- do not chart) 1 each PRN DAILY PRN MC SEE COMMENTS; Start 08/02/19 at 11:30; Status UNV Info (PHARMACY MONITORING -- do not chart) 1 each PRN DAILY PRN MC SEE COMMENTS; Start 08/02/19 at 11:30; Stop 08/04/19 at 12:13; Status DC Sodium Chloride 100 meq/Potassium Phosphate 19 mmol/ Magnesium Sulfate 12 meq/Calcium Gluconate 15 meq/ Multivitamins 10 ml/Chromium/ Copper/Manganese/ Seleni/Zn 0.5 ml/ Insulin Human Regular 40 unit/ Potassium Chloride 20 meq/ Total Parenteral Nutrition/Amino Acids/Dextrose/ Fat Emulsion Intravenous 1,400 ml @ 58.333 mls/ hr TPN CONT IV Last administered on 08/02/19at 21:52; Start 08/02/19 at 22:00; Stop 08/03/19 at 21:59; Status DC Sodium Chloride (Normal Saline Flush) 10 ml QSHIFT PRN IV AFTER MEDS AND BLOOD DRAWS; Start 08/02/19 at 15:00; Stop 08/30/19 at 11:27; Status DC Sodium Chloride (Normal Saline Flush) 10 ml PRN Q5MIN PRN IV AFTER MEDS AND BLOOD DRAWS; Start 08/02/19 at 15:00 Sodium Chloride (Normal Saline Flush) 20 ml PRN Q5MIN PRN IV AFTER MEDS AND BLOOD DRAWS; Start 08/02/19 at 15:00 Sodium Chloride 100 meq/Potassium Phosphate 19 mmol/ Magnesium Sulfate 12 meq/Calcium Gluconate 15 meq/ Multivitamins 10 ml/Chromium/ Copper/Manganese/ Seleni/Zn 0.5 ml/ Insulin Human Regular 40 unit/ Potassium Chloride 20 meq/ Total Parenteral Nutrition/Amino Acids/Dextrose/ Fat Emulsion Intravenous 1,400 ml @ 58.333 mls/ hr TPN CONT IV Last administered on 08/03/19at 21:20; Start 08/03/19 at 22:00; Stop 08/04/19 at 21:59; Status DC Lidocaine HCl (Buffered Lidocaine 1%) 3 ml STK-MED ONCE .ROUTE ; Start 08/03/19 at 13:16; Stop 08/03/19 at 13:16; Status DC Lidocaine HCl (Buffered Lidocaine 1%) 6 ml 1X ONCE INJ Last administered on 08/03/19at 13:45; Start 08/03/19 at 13:30; Stop 08/03/19 at 13:31; Status DC Albumin Human 100 ml @ 100 mls/hr 1X ONCE IV Last administered on 08/03/19at 15:41; Start 08/03/19 at 15:00; Stop 08/03/19 at 15:59; Status DC Albumin Human 50 ml @ 50 mls/hr 1X ONCE IV Last administered on 08/03/19at 15:00; Start 08/03/19 at 15:00; Stop 08/03/19 at 15:59; Status DC Info (PHARMACY MONITORING -- do not chart) 1 each PRN DAILY PRN MC SEE PIPE TS; Start 08/04/19 at 11:30; Status Cancel Info (PHARMACY MONITORING -- do not chart) 1 each PRN DAILY PRN MC SEE COMMENTS; Start 08/04/19 at 11:30; Status UNV Sodium Chloride 100 meq/Potassium Phosphate 10 mmol/ Magnesium Sulfate 12 meq/Calcium Gluconate 15 meq/ Multivitamins 10 ml/Chromium/ Copper/Manganese/ Seleni/Zn 0.5 ml/ Insulin Human Regular 35 unit/ Potassium Chloride 20 meq/ Total Parenteral Nutrition/Amino Acids/Dextrose/ Fat Emulsion Intravenous 1,400 ml @ 58.333 mls/ hr TPN CONT IV Last administered on 08/04/19at 22:10; Start 08/04/19 at 22:00; Stop 08/05/19 at 21:59; Status DC Sodium Chloride 100 meq/Potassium Phosphate 5 mmol/ Magnesium Sulfate 12 meq/Calcium Gluconate 15 meq/ Multivitamins 10 ml/Chromium/ Copper/Manganese/ Seleni/Zn 0.5 ml/ Insulin Human Regular 35 unit/ Potassium Chloride 20 meq/ Total Parenteral Nutrition/Amino Acids/Dextrose/ Fat Emulsion Intravenous 1,400 ml @ 58.333 mls/ hr TPN CONT IV Last administered on 08/05/19at 22:59; Start 08/05/19 at 22:00; Stop 08/06/19 at 21:59; Status DC Sodium Chloride 1,000 ml @ 1,000 mls/hr Q1H PRN IV hypotension; Start 08/06/19 at 08:27; Stop 08/06/19 at 14:26; Status DC Albumin Human 200 ml @ 200 mls/hr 1X PRN PRN IV Hypotension Last administered on 08/06/19at 09:18; Start 08/06/19 at 08:30; Stop 08/06/19 at 14:29; Status DC Sodium Chloride 1,000 ml @ 400 mls/hr Q2H30M PRN IV PATENCY; Start 08/06/19 at 08:27; Stop 08/06/19 at 20:26; Status DC Info (PHARMACY MONITORING -- do not chart) 1 each PRN DAILY PRN MC SEE COMMENTS; Start 08/06/19 at 08:30; Status Cancel Info (PHARMACY MONITORING -- do not chart) 1 each PRN DAILY PRN MC SEE COMMENTS; Start 08/06/19 at 08:30; Stop 08/14/19 at 13:10; Status DC Sodium Chloride 100 meq/Potassium Chloride 40 meq/ Magnesium Sulfate 15 meq/C alcium Gluconate 15 meq/ Multivitamins 10 ml/Chromium/ Copper/Manganese/ Seleni/Zn 0.5 ml/ Insulin Human Regular 35 unit/ Total Parenteral Nutrition/Amino Acids/Dextrose/ Fat Emulsion Intravenous 1,400 ml @ 58.333 mls/ hr TPN CONT IV Last administered on 08/06/19at 22:00; Start 08/06/19 at 22:00; Stop 08/07/19 at 21:59; Status DC Potassium Chloride/Water 100 ml @ 100 mls/hr 1X ONCE IV Last administered on 08/06/19at 17:28; Start 08/06/19 at 14:45; Stop 08/06/19 at 15:44; Status DC Sodium Chloride 100 meq/Potassium Chloride 40 meq/ Magnesium Sulfate 15 meq/Calcium Gluconate 15 meq/ Multivitamins 10 ml/Chromium/ Copper/Manganese/ Seleni/Zn 0.5 ml/ Insulin Human Regular 35 unit/ Total Parenteral Nutrition/Amino Acids/Dextrose/ Fat Emulsion Intravenous 1,400 ml @ 58.333 mls/ hr TPN CONT IV Last administered on 08/07/19at 22:46; Start 08/07/19 at 22:00; Stop 08/08/19 at 21:59; Status DC Sodium Chloride 100 meq/Potassium Chloride 40 meq/ Magnesium Sulfate 20 meq/Calcium Gluconate 15 meq/ Multivitamins 10 ml/Chromium/ Copper/Manganese/ Seleni/Zn 0.5 ml/ Insulin Human Regular 35 unit/ Total Parenteral Nutrition/Amino Acids/Dextrose/ Fat Emulsion Intravenous 1,400 ml @ 58.333 mls/ hr TPN CONT IV Last administered on 08/08/19at 22:31; Start 08/08/19 at 22:00; Stop 08/09/19 at 21:59; Status DC Fentanyl Citrate (Fentanyl 2ml Vial) 50 mcg PRN Q2HR PRN IVP PAIN Last administered on 08/15/19at 13:32; Start 08/08/19 at 21:00; Stop 08/16/19 at 12:53; Status DC Fentanyl Citrate (Fentanyl 2ml Vial) 25 mcg PRN Q2HR PRN IVP PAIN; Start 08/08/19 at 21:00; Stop 08/16/19 at 12:54; Status DC Enoxaparin Sodium (Lovenox 100mg Syringe) 100 mg Q12HR SQ ; Start 08/09/19 at 21:00; Status UNV Amino Acids/ Glycerin/ Electrolytes 1,000 ml @ 75 mls/hr [id number] IV ; Start 08/08/19 at 21:15; Status UNV Sodium Chloride 1,000 ml @ 1,000 mls/hr Q1H PRN IV hypotension; Start 08/09/19 at 07:56; Stop 08/09/19 at 13:55; Status DC Albumin Human 200 ml @ 200 mls/hr 1X PRN PRN IV Hypotension Last administered on 08/09/19at 08:40; Start 08/09/19 at 08:00; Stop 08/09/19 at 13:59; Status DC Sodium Chloride 1,000 ml @ 400 mls/hr Q2H30M PRN IV PATENCY; Start 08/09/19 at 07:56; Stop 08/09/19 at 19:55; Status DC Info (PHARMACY MONITORING -- do not chart) 1 each PRN DAILY PRN MC SEE COMMENTS; Start 08/09/19 at 08:00; Status UNV Info (PHARMACY MONITORING -- do not chart) 1 each PRN DAILY PRN MC SEE COMMENTS; Start 08/09/19 at 08:00; Status UNV Daptomycin 430 mg/ Sodium Chloride 50 ml @ 100 mls/hr Q24H IV Last administered on 08/09/19at 12:35; Start 08/09/19 at 09:00; Stop 08/09/19 at 12:49; Status DC Sodium Chloride 100 meq/Potassium Chloride 40 meq/ Magnesium Sulfate 20 meq/Calcium Gluconate 15 meq/ Multivitamins 10 ml/Chromium/ Copper/Manganese/ Seleni/Zn 0.5 ml/ Insulin Human Regular 35 unit/ Total Parenteral Nutrition/Amino Acids/Dextrose/ Fat Emulsion Intravenous 1,400 ml @ 58.333 mls/ hr TPN CONT IV Last administered on 08/09/19at 21:26; Start 08/09/19 at 22:00; Stop 08/10/19 at 21:59; Status DC Daptomycin 430 mg/ Sodium Chloride 50 ml @ 100 mls/hr Q48H IV ; Start 08/11/19 at 09:00; Stop 08/10/19 at 11:55; Status DC Sodium Chloride 100 meq/Potassium Chloride 40 meq/ Magnesium Sulfate 20 meq/Calcium Gluconate 15 meq/ Multivitamins 10 ml/Chromium/ Copper/Manganese/ Seleni/Zn 0.5 ml/ Insulin Human Regular 35 unit/ Total Parenteral Nutrition/Amino Acids/Dextrose/ Fat Emulsion Intravenous 1,400 ml @ 58.333 mls/ hr TPN CONT IV Last administered on 08/10/19at 22:27; Start 08/10/19 at 22:00; Stop 08/11/19 at 21:59; Status DC Daptomycin 430 mg/ Sodium Chloride 50 ml @ 100 mls/hr Q24H IV Last administered on 08/12/19at 15:07; Start 08/10/19 at 13:00; Stop 08/13/19 at 13:15; Status DC Sodium Chloride 100 meq/Potassium Chloride 40 meq/ Magnesium Sulfate 20 meq/Calcium Gluconate 10 meq/ Multivitamins 10 ml/Chromium/ Copper/Manganese/ Seleni/Zn 0.5 ml/ Insulin Human Regular 35 unit/ Total Parenteral Nutrition/Amino Acids/Dextrose/ Fat Emulsion Intravenous 1,400 ml @ 58.333 mls/ hr TPN CONT IV Last administered on 08/12/19at 00:06; Start 08/11/19 at 22:00; Stop 08/12/19 at 21:59; Status DC Alteplase, Recombinant (Cathflo For Central Catheter Clearance) 1 mg 1X ONCE IN T CAT Last administered on 08/12/19at 11:44; Start 08/12/19 at 10:45; Stop 08/12/19 at 10:46; Status DC Ondansetron HCl (Zofran) 4 mg PRN Q6HRS PRN IV NAUSEA/VOMITING; Start 08/15/19 at 07:00; Stop 08/16/19 at 06:59; Status DC Fentanyl Citrate (Fentanyl 2ml Vial) 25 mcg PRN Q5MIN PRN IV MILD PAIN 1-3; Start 08/15/19 at 07:00; Stop 08/16/19 at 06:59; Status DC Fentanyl Citrate (Fentanyl 2ml Vial) 50 mcg PRN Q5MIN PRN IV MODERATE TO SEVERE PAIN Last administered on 08/15/19at 10:17; Start 08/15/19 at 07:00; Stop 08/16/19 at 06:59; Status DC Ringer's Solution 1,000 ml @ 30 mls/hr Q24H IV ; Start 08/15/19 at 07:00; Stop 08/15/19 at 18:59; Status DC Lidocaine HCl (Xylocaine-Mpf 1% 2ml Vial) 2 ml PRN 1X PRN ID PRIOR TO IV START; Start 08/15/19 at 07:00; Stop 08/16/19 at 06:59; Status DC Prochlorperazine Edisylate (Compazine) 5 mg PACU PRN PRN IV NAUSEA, MRX1; Start 08/15/19 at 07:00; Stop 08/16/19 at 06:59; Status DC Sodium Acetate 50 meq/Potassium Acetate 55 meq/ Magnesium Sulfate 20 meq/Calcium Gluconate 10 meq/ Multivitamins 10 ml/Chromium/ Copper/Manganese/ Seleni/Zn 0.5 ml/ Insulin Human Regular 35 unit/ Total Parenteral Nutrition/Amino Acids/Dextrose/ Fat Emulsion Intravenous 1,400 ml @ 58.333 mls/ hr TPN CONT IV ; Start 08/12/19 at 22:00; Stop 08/12/19 at 14:15; Status DC Sodium Acetate 50 meq/Potassium Acetate 55 meq/ Magnesium Sulfate 20 meq/Calcium Gluconate 10 meq/ Multivitamins 10 ml/Chromium/ Copper/Manganese/ Seleni/Zn 0.5 ml/ Insulin Human Regular 35 unit/ Total Parenteral Nutrition/Amino Acids/Dextrose/ Fat Emulsion Intravenous 1,800 ml @ 75 mls/hr TPN CONT IV Last administered on 08/12/19at 22:38; Start 08/12/19 at 22:00; Stop 08/13/19 at 21:59; Status DC Sodium Chloride 1,000 ml @ 1,000 mls/hr Q1H PRN IV hypotension; Start 08/12/19 at 15:31; Stop 08/12/19 at 21:30; Status DC Diphenhydramine HCl (Benadryl) 25 mg 1X PRN PRN IV ITCHING; Start 08/12/19 at 15:45; Stop 08/13/19 at 15:44; Status DC Diphenhydramine HCl (Benadryl) 25 mg 1X PRN PRN IV ITCHING; Start 08/12/19 at 15:45; Stop 08/13/19 at 15:44; Status DC Sodium Chloride 1,000 ml @ 400 mls/hr Q2H30M PRN IV PATENCY; Start 08/12/19 at 15:31; Stop 08/13/19 at 03:30; Status DC Info (PHARMACY MONITORING -- do not chart) 1 each PRN DAILY PRN MC SEE COMMENTS; Start 08/12/19 at 15:45 Sodium Acetate 50 meq/Potassium Acetate 55 meq/ Magnesium Sulfate 20 meq/Calcium Gluconate 10 meq/ Multivitamins 10 ml/Chromium/ Copper/Manganese/ Seleni/Zn 0.5 ml/ Insulin Human Regular 35 unit/ Total Parenteral Nutrition/Amino Acids/Dextrose/ Fat Emulsion Intravenous 1,800 ml @ 75 mls/hr TPN CONT IV Last administered on 08/13/19at 22:03; Start 08/13/19 at 22:00; Stop 08/14/19 at 21:59; Status DC Daptomycin 430 mg/ Sodium Chloride 50 ml @ 100 mls/hr Q24H IV Last administered on 08/18/19at 13:00; Start 08/13/19 at 13:00; Stop 08/18/19 at 20:58; Status DC Heparin Sodium (Porcine) 1000 unit/Sodium Chloride 1,001 ml @ 1,001 mls/hr 1X ONCE IRR ; Start 08/15/19 at 06:00; Stop 08/15/19 at 06:59; Status DC Potassium Acetate 55 meq/Magnesium Sulfate 20 meq/ Calcium Gluconate 10 meq/ Multivitamins 10 ml/Chromium/ Copper/Manganese/ Seleni/Zn 0.5 ml/ Insulin Human Regular 35 unit/ Total Parenteral Nutrition/Amino Acids/Dextrose/ Fat Emulsion Intravenous 1,920 ml @ 80 mls/hr TPN CONT IV Last administered on 08/14/19at 22:10; Start 08/14/19 at 22:00; Stop 08/15/19 at 21:59; Status DC Dexamethasone Sodium Phosphate (Decadron) 4 mg STK-MED ONCE .ROUTE ; Start 08/15/19 at 10:56; Stop 08/15/19 at 10:57; Status DC Ondansetron HCl (Zofran) 4 mg STK-MED ONCE .ROUTE ; Start 08/15/19 at 10:56; Stop 08/15/19 at 10:57; Status DC Rocuronium [place] (Zemuron) 50 mg STK-MED ONCE .ROUTE ; Start 08/15/19 at 10:56; Stop 08/15/19 at 10:57; Status DC Fentanyl Citrate (Fentanyl 2ml Vial) 100 mcg STK-MED ONCE .ROUTE ; Start at 10:56; Stop 08/15/19 at 10:57; Status DC Bupivacaine HCl/ Epinephrine Bitart (Sensorcain-Epi 0.5%-1:131652 Mpf) 30 ml STK-MED ONCE .ROUTE Last administered on 08/15/19at 12:01; Start 08/15/19 at 10:58; Stop 08/15/19 at 10:58; Status DC Cellulose (Surgicel Hemostat 2x14) 1 each STK-MED ONCE .ROUTE ; Start 08/15/19 at 10:58; Stop 08/15/19 at 10:59; Status DC Iohexol (Omnipaque 300 Mg/ml) 50 ml STK-MED ONCE .ROUTE ; Start 08/15/19 at 10:58; Stop 08/15/19 at 10:59; Status DC Cellulose (Surgicel Hemostat 4x8) 1 each STK-MED ONCE .ROUTE ; Start 08/15/19 at 10:58; Stop 08/15/19 at 10:59; Status DC Bisacodyl (Dulcolax Supp) 10 mg STK-MED ONCE .ROUTE ; Start 08/15/19 at 10:59; Stop 08/15/19 at 10:59; Status DC Heparin Sodium (Porcine) 1000 unit/Sodium Chloride 1,001 ml @ 1,001 mls/hr 1X ONCE IRR ; Start 08/15/19 at 12:00; Stop 08/15/19 at 12:59; Status DC Propofol 20 ml @ As Directed STK-MED ONCE IV ; Start 08/15/19 at 11:05; Stop 08/15/19 at 11:05; Status DC Sevoflurane (Ultane) 90 ml STK-MED ONCE IH ; Start 08/15/19 at 11:05; Stop 08/15/19 at 11:05; Status DC Sevoflurane (Ultane) 60 ml STK-MED ONCE IH ; Start 08/15/19 at 12:26; Stop 08/15/19 at 12:27; Status DC Propofol 20 ml @ As Directed STK-MED ONCE IV ; Start 08/15/19 at 12:26; Stop 08/15/19 at 12:27; Status DC Phenylephrine HCl (PHENYLEPHRINE in 0.9% NACL PF) 1 mg STK-MED ONCE IV ; Start 08/15/19 at 12:34; Stop 08/15/19 at 12:34; Status DC Heparin Sodium (Porcine) (Heparin Sodium) 5,000 unit Q12HR SQ Last administered on 08/24/19at 20:57; Start 08/15/19 at 21:00; Stop 08/25/19 at 09:59; Status DC Sodium Chloride (Normal Saline Flush) 3 ml QSHIFT PRN IV AFTER MEDS AND BLOOD DRAWS; Start 08/15/19 at 13:45 Naloxone HCl (Narcan) 0.4 mg PRN Q2MIN PRN IV SEE INSTRUCTIONS; Start 08/15/19 at 13:45 Sodium Chloride 1,000 ml @ 25 mls/hr Q24H IV Last administered on 09/06/19at 13:37; Start 08/15/19 at 13:37 Naloxone HCl (Narcan) 0.4 mg PRN Q2MIN PRN IV SEE INSTRUCTIONS; Start 08/15/19 at 14:30; Status UNV Sodium Chloride 1,000 ml @ 25 mls/hr Q24H IV ; Start 08/15/19 at 14:30; Status UNV Hydromorphone HCl 30 ml @ 0 mls/hr CONT PRN PRN IV PER PROTOCOL Last administered on 08/20/19at 16:08; Start 08/15/19 at 14:30; Stop 08/22/19 at 08:55; Status DC Potassium Acetate 55 meq/Magnesium Sulfate 20 meq/ Calcium Gluconate 10 meq/ Multivitamins 10 ml/Chromium/ Copper/Manganese/ Seleni/Zn 0.5 ml/ Insulin Human Regular 35 unit/ Total Parenteral Nutrition/Amino Acids/Dextrose/ Fat Emulsion Intravenous 1,920 ml @ 80 mls/hr TPN CONT IV Last administered on 08/15/19at 22:01; Start 08/15/19 at 22:00; Stop 08/16/19 at 21:59; Status DC Bumetanide (Bumex) 2 mg [id number] IV Last administered on 08/19/19at 13:50; Start 08/16/19 at 14:00; Stop 08/20/19 at 14:10; Status DC Meropenem 1 gm/ Sodium Chloride 100 ml @ 200 mls/hr Q8HRS IV Last administered on 09/07/19at 06:45; Start 08/16/19 at 14:00 Potassium Acetate 55 meq/Magnesium Sulfate 20 meq/ Calcium Gluconate 10 meq/ Multivitamins 10 ml/Chromium/ Copper/Manganese/ Seleni/Zn 0.5 ml/ Insulin Human Regular 35 unit/ Total Parenteral Nutrition/Amino Acids/Dextrose/ Fat Emulsion Intravenous 1,920 ml @ 80 mls/hr TPN CONT IV Last administered on 08/16/19at 22:02; Start 08/16/19 at 22:00; Stop 08/17/19 at 21:59; Status DC Hydromorphone HCl (Dilaudid Standard PET SITTER) 12 mg STK-MED ONCE IV ; Start 08/15/19 at 14:35; Stop 08/16/19 at 13:53; Status DC Artificial Tears (Artificial Tears) 1 drop PRN Q15MIN PRN OU DRY EYE Last administered on 09/05/19at 08:08; Start 08/17/19 at 05:30 Hydromorphone HCl (Dilaudid Standard PET SITTER) 12 mg STK-MED ONCE IV ; Start 08/16/19 at 12:05; Stop 08/17/19 at 09:15; Status DC Potassium Acetate 65 meq/Magnesium Sulfate 20 meq/ Calcium Gluconate 10 meq/ Multivitamins 10 ml/Chromium/ Copper/Manganese/ Seleni/Zn 0.5 ml/ Insulin Human Regular 30 unit/ Total Parenteral Nutrition/Amino Acids/Dextrose/ Fat Emulsion Intravenous 1,920 ml @ 80 mls/hr TPN CONT IV Last administered on 08/17/19at 22:22; Start 08/17/19 at 22:00; Stop 08/18/19 at 21:59; Status DC Cyclobenzaprine HCl (Flexeril) 10 mg PRN Q6HRS PRN PO MUSCLE SPASMS; Start 08/18/19 at 10:45 Potassium Acetate 55 meq/Magnesium Sulfate 20 meq/ Calcium Gluconate 10 meq/ Multivitamins 10 ml/Chromium/ Copper/Manganese/ Seleni/Zn 0.5 ml/ Insulin Human Regular 30 unit/ Total Parenteral Nutrition/Amino Acids/Dextrose/ Fat Emulsion Intravenous 1,920 ml @ 80 mls/hr TPN CONT IV Last administered on 08/19/19at 01:00; Start 08/18/19 at 22:00; Stop 08/19/19 at 21:59; Status DC Magnesium Sulfate 50 ml @ 25 mls/hr 1X ONCE IV Last administered on 08/18/19at 17:18; Start 08/18/19 at 12:45; Stop 08/18/19 at 14:44; Status DC Potassium Chloride/Water 100 ml @ 100 mls/hr 1X ONCE IV Last administered on 08/19/19at 11:27; Start 08/19/19 at 12:00; Stop 08/19/19 at 12:59; Status DC Hydromorphone HCl (Dilaudid Standard PET SITTER) 12 mg STK-MED ONCE IV ; Start 08/17/19 at 10:50; Stop 08/19/19 at 11:02; Status DC Hydromorphone HCl (Dilaudid Standard PET SITTER) 12 mg STK-MED ONCE IV ; Start 08/18/19 at 13:47; Stop 08/19/19 at 11:03; Status DC Potassium Acetate 30 meq/Magnesium Sulfate 20 meq/ Calcium Gluconate 10 meq/ Multivitamins 10 ml/Chromium/ Copper/Manganese/ Seleni/Zn 0.5 ml/ Insulin Human Regular 30 unit/ Potassium Chloride 30 meq/ Total Parenteral Nutrition/Amino Acids/Dextrose/ Fat Emulsion Intravenous 1,920 ml @ 80 mls/hr TPN CONT IV Last administered on 08/19/19at 22:34; Start 08/19/19 at 22:00; Stop 08/20/19 at 21:59; Status DC Potassium Chloride/Water 100 ml @ 100 mls/hr Q1H IV Last administered on 08/20/19at 13:05; Start 08/20/19 at 07:00; Stop 08/20/19 at 10:59; Status DC Magnesium Sulfate 50 ml @ 25 mls/hr 1X ONCE IV Last administered on 08/20/19at 10:34; Start 08/20/19 at 10:30; Stop 08/20/19 at 12:29; Status DC Potassium Chloride 75 meq/ Magnesium Sulfate 20 meq/Calcium Gluconate 10 meq/ Multivitamins 10 ml/Chromium/ Copper/Manganese/ Seleni/Zn 0.5 ml/ Insulin Human Regular 30 unit/ Total Parenteral Nutrition/Amino Acids/Dextrose/ Fat Emulsion Intravenous 1,920 ml @ 80 mls/hr TPN CONT IV Last administered on 08/20/19at 21:51; Start 08/20/19 at 22:00; Stop 08/21/19 at 22:00; Status DC Potassium Chloride 75 meq/ Magnesium Sulfate 20 meq/Calcium Gluconate 10 meq/ Multivitamins 10 ml/Chromium/ Copper/Manganese/ Seleni/Zn 0.5 ml/ Insulin Human Regular 25 unit/ Total Parenteral Nutrition/Amino Acids/Dextrose/ Fat Emulsion Intravenous 1,920 ml @ 80 mls/hr TPN CONT IV Last administered on 08/21/19at 22:04; Start 08/21/19 at 22:00; Stop 08/22/19 at 21:59; Status DC Hydromorphone HCl (Dilaudid) 0.4 mg PRN Q4HRS PRN IVP PAIN Last administered on 08/22/19at 10:57; Start 08/22/19 at 09:00; Stop 08/22/19 at 18:59; Status DC Micafungin Sodium 100 mg/Dextrose 100 ml @ 100 mls/hr Q24H IV Last administered on 09/06/19at 11:21; Start 08/22/19 at 11:00 Daptomycin 485 mg/ Sodium Chloride 50 ml @ 100 mls/hr Q24H IV Last administered on 08/29/19at 13:10; Start 08/22/19 at 11:00; Stop 08/30/19 at 07:44; Status DC Potassium Chloride 75 meq/ Magnesium Sulfate 15 meq/Calcium Gluconate 8 meq/ Mul tivitamins 10 ml/Chromium/ Copper/Manganese/ Seleni/Zn 0.5 ml/ Insulin Human Regular 25 unit/ Total Parenteral Nutrition/Amino Acids/Dextrose/ Fat Emulsion Intravenous 1,920 ml @ 80 mls/hr TPN CONT IV Last administered on 08/22/19at 23:08; Start 08/22/19 at 22:00; Stop 08/23/19 at 21:59; Status DC Haloperidol Lactate (Haldol Inj) 3 mg 1X ONCE IVP Last administered on 08/22/19at 14:37; Start 08/22/19 at 14:30; Stop 08/22/19 at 14:31; Status DC Hydromorphone HCl (Dilaudid) 1 mg PRN Q4HRS PRN IVP PAIN Last administered on 09/05/19at 06:25; Start 08/22/19 at 19:00; Stop 09/05/19 at 17:10; Status DC Potassium Chloride 75 meq/ Magnesium Sulfate 15 meq/Calcium Gluconate 8 meq/ Multivitamins 10 ml/Chromium/ Copper/Manganese/ Seleni/Zn 0.5 ml/ Insulin Human Regular 20 unit/ Total Parenteral Nutrition/Amino Acids/Dextrose/ Fat Emulsion Intravenous 1,920 ml @ 80 mls/hr TPN CONT IV Last administered on 08/23/19at 22:10; Start 08/23/19 at 22:00; Stop 08/24/19 at 21:59; Status DC Lidocaine HCl (Buffered Lidocaine 1%) 3 ml STK-MED ONCE .ROUTE ; Start 08/24/19 at 11:31; Stop 08/24/19 at 11:31; Status DC Lidocaine HCl (Buffered Lidocaine 1%) 3 ml STK-MED ONCE .ROUTE ; Start 08/24/19 at 12:28; Stop 08/24/19 at 12:29; Status DC Lidocaine HCl (Buffered Lidocaine 1%) 6 ml 1X ONCE INJ Last administered on 08/24/19at 12:53; Start 08/24/19 at 12:45; Stop 08/24/19 at 12:46; Status DC Potassium Chloride 75 meq/ Magnesium Sulfate 15 meq/Calcium Gluconate 8 meq/ Multivitamins 10 ml/Chromium/ Copper/Manganese/ Seleni/Zn 0.5 ml/ Insulin Human Regular 20 unit/ Total Parenteral Nutrition/Amino Acids/Dextrose/ Fat Emulsion Intravenous 1,920 ml @ 80 mls/hr TPN CONT IV Last administered on 08/24/19at 22:00; Start 08/24/19 at 22:00; Stop 08/25/19 at 21:59; Status DC Potassium Chloride 75 meq/ Magnesium Sulfate 15 meq/Calcium Gluconate 8 meq/ Multivitamins 10 ml/Chromium/ Copper/Manganese/ Seleni/Zn 0.5 ml/ Insulin Human Regular 15 unit/ Total Parenteral Nutrition/Amino Acids/Dextrose/ Fat Emulsion Intravenous 1,920 ml @ 80 mls/hr TPN CONT IV Last administered on 08/25/19at 22:28; Start 08/25/19 at 22:00; Stop 08/26/19 at 21:59; Status DC Vecuronium Niles (Norcuron Bolus) 6 mg PRN Q6HRS PRN IV VENT ASYNCHRONY; Start 08/25/19 at 19:15; Stop 08/25/19 at 19:35; Status DC Bumetanide (Bumex) 2 mg 1X ONCE IV Last administered on 08/25/19at 22:09; Start 08/25/19 at 19:45; Stop 08/25/19 at 19:46; Status DC Lidocaine HCl (Buffered Lidocaine 1%) 3 ml STK-MED ONCE .ROUTE ; Start 08/26/19 at 07:59; Stop 08/26/19 at 07:59; Status DC Midazolam HCl (Versed) 5 mg STK-MED ONCE .ROUTE ; Start 08/26/19 at 08:36; Stop 08/26/19 at 08:36; Status DC Fentanyl Citrate (Fentanyl 5ml Vial) 250 mcg STK-MED ONCE .ROUTE ; Start 08/26/19 at 08:36; Stop 08/26/19 at 08:37; Status DC Lidocaine HCl (Buffered Lidocaine 1%) 3 ml 1X ONCE IJ Last administered on 08/26/19at 09:30; Start 08/26/19 at 09:15; Stop 08/26/19 at 09:16; Status DC Midazolam HCl (Versed) 5 mg 1X ONCE IV Last administered on 08/26/19at 09:30; Start 08/26/19 at 09:15; Stop 08/26/19 at 09:16; Status DC Fentanyl Citrate (Fentanyl 5ml Vial) 250 mcg 1X ONCE IV Last administered on 08/26/19at 09:30; Start 08/26/19 at 09:15; Stop 08/26/19 at 09:16; Status DC Bumetanide (Bumex) 2 mg DAILY IV Last administered on 09/05/19at 08:07; Start 08/26/19 at 10:00; Stop 09/05/19 at 17:15; Status DC Potassium Chloride 75 meq/ Magnesium Sulfate 15 meq/ Multivitamins 10 ml/Chromium/ Copper/Manganese/ Seleni/Zn 0.5 ml/ Insulin Human Regular 15 unit/ Total Parenteral Nutrition/Amino Acids/Dextrose/ Fat Emulsion Intravenous 1,920 ml @ 80 mls/hr TPN CONT IV Last administered on 08/26/19at 21:59; Start 08/26/19 at 22:00; Stop 08/27/19 at 21:59; Status DC Metoclopramide HCl (Reglan Vial) 10 mg PRN Q3HRS PRN IVP NAUSEA/VOMITING-3rd choice Last administered on 09/01/19at 04:25; Start 08/27/19 at 16:45 Potassium Chloride 75 meq/ Magnesium Sulfate 15 meq/ Multivitamins 10 ml/Chromium/ Copper/Manganese/ Seleni/Zn 0.5 ml/ Insulin Human Regular 15 unit/ Total Parenteral Nutrition/Amino Acids/Dextrose/ Fat Emulsion Intravenous 1,920 ml @ 80 mls/hr TPN CONT IV Last administered on 08/27/19at 22:41; Start 08/27/19 at 22:00; Stop 08/28/19 at 21:59; Status DC Magnesium Sulfate 50 ml @ 25 mls/hr 1X ONCE IV Last administered on 08/28/19at 10:44; Start 08/28/19 at 09:00; Stop 08/28/19 at 10:59; Status DC Potassium Chloride/Water 100 ml @ 100 mls/hr 1X ONCE IV Last administered on 08/28/19at 09:37; Start 08/28/19 at 09:00; Stop 08/28/19 at 09:59; Status DC Duloxetine HCl (Cymbalta) 30 mg DAILY PO Last administered on 08/29/19at 09:48; Start 08/28/19 at 14:00; Stop 08/31/19 at 10:25; Status DC Potassium Chloride 80 meq/ Magnesium Sulfate 20 meq/ Multivitamins 10 ml/Chromium/ Copper/Manganese/ Seleni/Zn 0.5 ml/ Insulin Human Regular 15 unit/ Total Parenteral Nutrition/Amino Acids/Dextrose/ Fat Emulsion Intravenous 1,920 ml @ 80 mls/hr TPN CONT IV Last administered on 08/28/19at 21:42; Start 08/28/19 at 22:00; Stop 08/29/19 at 21:59; Status DC Potassium Chloride 80 meq/ Magnesium Sulfate 20 meq/ Multivitamins 10 ml/Chromium/ Copper/Manganese/ Seleni/Zn 0.5 ml/ Insulin Human Regular 15 unit/ Total Parenteral Nutrition/Amino Acids/Dextrose/ Fat Emulsion Intravenous 1,920 ml @ 80 mls/hr TPN CONT IV Last administered on 08/29/19at 22:20; Start 08/29/19 at 22:00; Stop 08/30/19 at 21:59; Status DC Lidocaine HCl (Buffered Lidocaine 1%) 3 ml STK-MED ONCE .ROUTE ; Start 08/30/19 at 09:54; Stop 08/30/19 at 09:55; Status DC Hydromorphone HCl (Dilaudid Standard PET SITTER) 12 mg STK-MED ONCE IV ; Start 08/19/19 at 15:50; Stop 08/30/19 at 11:24; Status DC Potassium Chloride 80 meq/ Magnesium Sulfate 20 meq/ Multivitamins 10 ml/Chromium/ Copper/Manganese/ Seleni/Zn 0.5 ml/ Insulin Human Regular 15 unit/ Total Parenteral Nutrition/Amino Acids/Dextrose/ Fat Emulsion Intravenous 1,920 ml @ 80 mls/hr TPN CONT IV Last administered on 08/30/19at 21:40; Start 08/30/19 at 22:00; Stop 08/31/19 at 21:59; Status DC Lidocaine HCl (Buffered Lidocaine 1%) 6 ml 1X ONCE INJ Last administered on 08/30/19at 14:15; Start 08/30/19 at 14:15; Stop 08/30/19 at 14:16; Status DC Potassium Chloride 80 meq/ Magnesium Sulfate 20 meq/ Multivitamins 10 ml/Chromium/ Copper/Manganese/ Seleni/Zn 1 ml/ Insulin Human Regular 15 unit/ Total Parenteral Nutrition/Amino Acids/Dextrose/ Fat Emulsion Intravenous 1,920 ml @ 80 mls/hr TPN CONT IV Last administered on 08/31/19at 22:04; Start 08/31/19 at 22:00; Stop 09/01/19 at 21:59; Status DC Potassium Chloride/Water 100 ml @ 100 mls/hr 1X ONCE IV Last administered on 09/01/19at 11:34; Start 09/01/19 at 11:00; Stop 09/01/19 at 11:59; Status DC Potassium Chloride 90 meq/ Magnesium Sulfate 20 meq/ Multivitamins 10 ml/Chromium/ Copper/Manganese/ Seleni/Zn 1 ml/ Insulin Human Regular 15 unit/ Total Parenteral Nutrition/Amino Acids/Dextrose/ Fat Emulsion Intravenous 1,920 ml @ 80 mls/hr TPN CONT IV Last administered on 09/01/19at 22:57; Start 09/01/19 at 22:00; Stop 09/02/19 at 21:59; Status DC Potassium Chloride 90 meq/ Magnesium Sulfate 20 meq/ Multivitamins 10 ml/Chromium/ Copper/Manganese/ Seleni/Zn 1 ml/ Insulin Human Regular 15 unit/ Total Parenteral Nutrition/Amino Acids/Dextrose/ Fat Emulsion Intravenous 1,920 ml @ 80 mls/hr TPN CONT IV Last administered on 09/02/19at 22:48; Start 09/02/19 at 22:00; Stop 09/03/19 at 21:59; Status DC Potassium Chloride 90 meq/ Magnesium Sulfate 20 meq/ Multivitamins 10 ml/Chromium/ Copper/Manganese/ Seleni/Zn 1 ml/ Insulin Human Regular 15 unit/ Total Parenteral Nutrition/Amino Acids/Dextrose/ Fat Emulsion Intravenous 1,890 ml @ 78.75 mls/ hr TPN CONT IV Last administered on 09/03/19at 22:15; Start 09/03/19 at 22:00; Stop 09/04/19 at 21:59; Status DC Linezolid/Dextrose 300 ml @ 300 mls/hr Q12HR IV Last administered on 09/06/19at 21:08; Start 09/04/19 at 09:00; Stop 09/07/19 at 08:11; Status DC Daptomycin 450 mg/ Sodium Chloride 50 ml @ 100 mls/hr Q24H IV Last administered on 09/07/19at 09:25; Start 09/04/19 at 09:00 Potassium Chloride 90 meq/ Magnesium Sulfate 20 meq/ Multivitamins 10 ml/Chromium/ Copper/Manganese/ Seleni/Zn 1 ml/ Insulin Human Regular 15 unit/ Total Parenteral Nutrition/Amino Acids/Dextrose/ Fat Emulsion Intravenous 1,890 ml @ 78.75 mls/ hr TPN CONT IV Last administered on 09/04/19at 21:34; Start 09/04/19 at 22:00; Stop 09/05/19 at 21:59; Status DC Lorazepam (Ativan Inj) 2 mg STK-MED ONCE .ROUTE ; Start 09/04/19 at 14:58; Stop 09/04/19 at 14:58; Status DC Metoprolol Tartrate (Lopressor Vial) 5 mg 1X ONCE IVP Last administered on 09/04/19at 15:31; Start 09/04/19 at 15:15; Stop 09/04/19 at 15:16; Status DC Lorazepam (Ativan Inj) 2 mg 1X ONCE IVP Last administered on 09/04/19at 15:30; Start 09/04/19 at 15:15; Stop 09/04/19 at 15:16; Status DC Enoxaparin Sodium (Lovenox 40mg Syringe) 40 mg Q24H SQ Last administered on 09/06/19at 17:43; Start 09/04/19 at 17:00 Lorazepam (Ativan Inj) 1 mg PRN Q4HRS PRN IVP ANXIETY / AGITATION MILD-MOD; Start 09/04/19 at 19:15 Lorazepam (Ativan Inj) 2 mg PRN Q4HRS PRN IVP ANXIETY / AGITATION SEVERE Last administered on 09/05/19at 22:20; Start 09/04/19 at 19:15 Fentanyl Citrate (Fentanyl 2ml Vial) 50 mcg PRN Q4HRS PRN IVP SEVERE PAIN Last administered on 09/07/19at 05:00; Start 09/05/19 at 13:15 Fentanyl Citrate (Fentanyl 2ml Vial) 25 mcg PRN Q4HRS PRN IVP MODERATE PAIN Last administered on 09/05/19at 17:13; Start 09/05/19 at 13:15 Potassium Chloride 90 meq/ Magnesium Sulfate 20 meq/ Multivitamins 10 ml/Chromium/ Copper/Manganese/ Seleni/Zn 1 ml/ Insulin Human Regular 15 unit/ Total Parenteral Nutrition/Amino Acids/Dextrose/ Fat Emulsion Intravenous 1,890 ml @ 78.75 mls/ hr TPN CONT IV Last administered on 09/05/19at 22:18; Start 09/05/19 at 22:00; Stop 09/06/19 at 21:59; Status DC Furosemide (Lasix) 40 mg 1X ONCE IVP Last administered on 09/05/19at 21:51; Start 09/05/19 at 21:45; Stop 09/05/19 at 21:48; Status DC Albumin Human 100 ml @ 100 mls/hr 1X PRN PRN IV SEE COMMENTS; Start 09/06/19 at 01:30 Furosemide (Lasix) 40 mg [id number] IVP Last administered on 09/07/19at 09:34; Start 09/06/19 at 14:00 Potassium Chloride 90 meq/ Magnesium Sulfate 20 meq/ Multivitamins 10 ml/Chromium/ Copper/Manganese/ Seleni/Zn 1 ml/ Insulin Human Regular 15 unit/ Total Parenteral Nutrition/Amino Acids/Dextrose/ Fat Emulsion Intravenous 1,800 ml @ 75 mls/hr TPN CONT IV Last administered on 09/06/19at 22:31; Start 09/06/19 at 22:00; Stop 09/07/19 at 21:59 Potassium Chloride 90 meq/ Magnesium Sulfate 20 meq/ Multivitamins 10 ml/Chromium/ Copper/Manganese/ Seleni/Zn 1 ml/ Insulin Human Regular 15 unit/ Total Parenteral Nutrition/Amino Acids/Dextrose/ Fat Emulsion Intravenous 1,800 ml @ 75 mls/hr TPN CONT IV ; Start 09/07/19 at 22:00; Stop 09/08/19 at 21:59 Active Scripts Active Reported Bisoprolol Fumarate 5 Mg Tablet 10 Mg PO DAILY Vitals/I & O Vital Sign - Last 24 Hours 09/06/19 09/06/19 09/06/19 09/06/19 13:00 14:00 15:00 15:13 Pulse 108 120 98 Resp 16 24 13 B/P (MAP) 114/63 (80) 113/65 (81) 112/71 (85) Pulse Ox 100 100 99 100 O2 Delivery Ventilator Ventilator Ventilator Ventilator 09/06/19 09/06/19 09/06/19 09/06/19 16:00 16:00 16:50 17:00 Temp 97.4 97.4 Pulse 94 92 Resp 11 13 B/P (MAP) 101/66 (78) 112/71 (85) Pulse Ox 100 99 100 O2 Delivery Mechanical Ventilator Ventilator Ventilator Ventilator 09/06/19 09/06/19 09/06/19 09/06/19 18:00 19:00 19:50 20:00 Temp 98.3 98.3 Pulse 88 86 80 Resp 9 12 10 B/P (MAP) 100/59 (73) 96/61 (73) 95/51 (66) Pulse Ox 100 100 99 100 O2 Delivery Ventilator Ventilator Ventilator Ventilator 09/06/19 09/06/19 09/06/19 09/06/19 20:00 20:28 21:00 22:00 Pulse 84 78 Resp 16 13 12 B/P (MAP) 103/50 (67) 99/61 (74) Pulse Ox 100 100 100 O2 Delivery Mechanical Ventilator Ventilator Ventilator Ventilator 09/06/19 09/07/19 09/07/19 09/07/19 23:00 00:00 00:00 00:10 Temp 98.5 98.5 Pulse 80 79 Resp 12 30 B/P (MAP) 94/48 (63) 90/54 (66) Pulse Ox 100 100 99 O2 Delivery Ventilator Ventilator Mechanical Ventilator Ventilator 09/07/19 09/07/19 09/07/19 09/07/19 01:00 02:00 03:00 04:00 Pulse 80 80 78 Resp 15 14 14 B/P (MAP) 97/56 (70) 91/45 (60) 101/58 (72) Pulse Ox 100 100 100 O2 Delivery Ventilator Ventilator Ventilator Mechanical Ventilator 09/07/19 09/07/19 09/07/19 09/07/19 04:00 04:05 05:00 05:00 Temp 98.2 98.2 Pulse 72 76 Resp 12 30 12 B/P (MAP) 96/58 (71) 110/59 (76) Pulse Ox 100 99 100 100 O2 Delivery Ventilator Ventilator Ventilator Ventilator 09/07/19 09/07/19 09/07/19 09/07/19 06:00 07:00 08:00 08:22 Pulse 76 72 Resp 11 14 B/P (MAP) 103/62 (76) 100/58 (72) Pulse Ox 99 100 100 O2 Delivery Ventilator Ventilator Mechanical Ventilator Ventilator 09/07/19 10:10 Pulse Ox 100 O2 Delivery Tracheal Collar O2 Flow Rate 8.0 Intake and Output 09/06/19 09/06/19 09/07/19 15:00 23:00 07:00 Intake Total 2565.1 ml 639 ml Output Total 475 ml 940 ml 705 ml Balance -475 ml 1625.1 ml -66 ml Hemodynamically unstable?: No Is patient in severe pain?: No Is NPO status required?: Yes GREG HERRERA MD September 07, 2019 12:06
[2019-09-07] MEDS: MICAFUNGIN 100 MG in IV DEXTROSE 5% 100ML 100 ML IV SCH (12:40)
--- NOTE | 2019-09-07 13:04 | PDOC ---
PULMONARY PROGRESS NOTES Subjective Patient intubated on 07/10 , s/p trach 4/6, awake alert follows commands, is weak, small trach secretion, trach has been capped over 48 hrs placed on cap trach, at times patient having some respiratory distress s/p left tap 08/29 , 3 litres removed Vitals Vital Signs Date Time Temp Pulse Resp B/P (MAP) Pulse Ox O2 Delivery O2 Flow Rate FiO2 09/07/19 10:10 100 Tracheal Collar 8.0 09/07/19 07:00 72 14 100/58 (72) 09/07/19 04:00 98.2 98.2 ROS: No Chest Pain, No Abdominal Pain, No Increase Cough General: Alert, No acute distress HEENT: Other (nc at perrl neck trach site ok no lad no thyromegaly) Lungs: Wheezing, Other (decrease bs) Cardiovascular: S1, S2 Abdomen: Soft, Non-tender, Other (distended) Neuro Exam: Alert Extremities: Other (+3 generalized edema ) Skin: Warm, Dry Labs Laboratory Tests Test 09/05/19 17:03 09/05/19 23:33 09/06/19 00:09 09/06/19 05:10 Glucose (Fingerstick) 179 mg/dL (70-99) 227 mg/dL (70-99) O2 Saturation 98 % (92-99) Arterial Blood pH 7.42 (7.35-7.45) Arterial Blood pCO2 at Patient Temp 78 mmHg (35-46) Arterial Blood pO2 at Patient Temp 122 mmHg (75-108) Arterial Blood HCO3 49 mmol/L (21-28) Arterial Blood Base Excess 22 mmol/L (-3-3) FiO2 32 White Blood Count 11.3 x10^3/uL (4.0-11.0) Red Blood Count 2.58 x10^6/uL (3.50-5.40) Hemoglobin 7.4 g/dL (12.0-15.5) Hematocrit 22.7 % (36.0-47.0) Mean Corpuscular Volume 88 fL (79-100) Mean Corpuscular Hemoglobin 29 pg (25-35) Mean Corpuscular Hemoglobin Concent 32 g/dL (31-37) Red Cell Distribution Width 18.1 % (11.5-14.5) Platelet Count 485 x10^3/uL (140-400) Neutrophils (%) (Auto) 74 % (31-73) Lymphocytes (%) (Auto) 19 % (24-48) Monocytes (%) (Auto) 7 % (0-9) Eosinophils (%) (Auto) 1 % (0-3) Basophils (%) (Auto) 0 % (0-3) Neutrophils # (Auto) 8.3 x10^3/uL (1.8-7.7) Lymphocytes # (Auto) 2.1 x10^3/uL (1.0-4.8) Monocytes # (Auto) 0.7 x10^3/uL (0.0-1.1) Eosinophils # (Auto) 0.1 x10^3/uL (0.0-0.7) Basophils # (Auto) 0.0 x10^3/uL (0.0-0.2) Test 09/06/19 05:20 09/06/19 08:00 09/06/19 12:29 09/06/19 17:42 Glucose (Fingerstick) 153 mg/dL (70-99) 251 mg/dL (70-99) 122 mg/dL (70-99) O2 Saturation 97 % (92-99) Arterial Blood pH 7.67 (7.35-7.45) Arterial Blood pCO2 at Patient Temp 37 mmHg (35-46) Arterial Blood pO2 at Patient Temp 80 mmHg (75-108) Arterial Blood HCO3 42 mmol/L (21-28) Arterial Blood Base Excess 20 mmol/L (-3-3) FiO2 40 Test 09/06/19 23:41 09/07/19 06:45 09/07/19 06:53 09/07/19 09:30 Glucose (Fingerstick) 207 mg/dL (70-99) 146 mg/dL (70-99) Sodium Level 140 mmol/L (136-145) Potassium Level 3.9 mmol/L (3.5-5.1) Chloride Level 99 mmol/L (98-107) Carbon Dioxide Level 41 mmol/L (21-32) Anion Gap 0 (6-14) Blood Urea Nitrogen 30 mg/dL (7-20) Creatinine 0.7 mg/dL (0.6-1.0) Estimated GFR (Cockcroft-Gault) 88.9 Glucose Level 147 mg/dL (70-99) Calcium Level 8.8 mg/dL (8.5-10.1) O2 Saturation 97 % (92-99) Arterial Blood pH 7.50 (7.35-7.45) Arterial Blood pCO2 at Patient Temp 54 mmHg (35-46) Arterial Blood pO2 at Patient Temp 106 mmHg (75-108) Arterial Blood HCO3 41 mmol/L (21-28) Arterial Blood Base Excess 16 mmol/L (-3-3) FiO2 30% trial Test 09/07/19 12:31 Glucose (Fingerstick) 258 mg/dL (70-99) Laboratory Tests Test 09/06/19 17:42 09/06/19 23:41 09/07/19 06:45 09/07/19 06:53 Glucose (Fingerstick) 122 mg/dL (70-99) 207 mg/dL (70-99) 146 mg/dL (70-99) Sodium Level 140 mmol/L (136-145) Potassium Level 3.9 mmol/L (3.5-5.1) Chloride Level 99 mmol/L (98-107) Carbon Dioxide Level 41 mmol/L (21-32) Anion Gap 0 (6-14) Blood Urea Nitrogen 30 mg/dL (7-20) Creatinine 0.7 mg/dL (0.6-1.0) Estimated GFR (Cockcroft-Gault) 88.9 Glucose Level 147 mg/dL (70-99) Calcium Level 8.8 mg/dL (8.5-10.1) Test 09/07/19 09:30 09/07/19 12:31 O2 Saturation 97 % (92-99) Arterial Blood pH 7.50 (7.35-7.45) Arterial Blood pCO2 at Patient Temp 54 mmHg (35-46) Arterial Blood pO2 at Patient Temp 106 mmHg (75-108) Arterial Blood HCO3 41 mmol/L (21-28) Arterial Blood Base Excess 16 mmol/L (-3-3) FiO2 30% trial Glucose (Fingerstick) 258 mg/dL (70-99) Medications Active Scripts Medications Dose Route/Sig Max Daily Dose Days Date Category Bisoprolol Fumarate 5 Mg Tablet 10 Mg PO DAILY 07/04/19 Reported Comments CXR reviewed. Impression . IMPRESSION: 1. Acute hypoxemic respiratory failure secondary to ARDS status post trach, 2. Gallstone pancreatitis 3. Severe metabolic acidosis.stable 4. Acute kidney injury-stable, Off HD-- continue to improve 5. Acute gallstone pancreatitis. 6. Hypoalbuminemia. 7. Moderate persistent effusions, s/p left thora 08/29 8. Fever- Per ID, per surgery--resolved 9. Chronic anemia 10. Covid 19 testing negative 11. Moderate to large ascites-S/P paracentisis 12.S/P paracentisis with 4 liters removed on 08/03/19 13. S/P IR drain placement on 08/26/2019 Plan . Patient went outdoors today, I did not see her Lasix 40 mg twice daily Patient placed on assist control last evening for respiratory distress s/p thoracentesis, 08/29, 3 litres removed cap trach as tolerated Follow surgery recs-- S/P 3 drain placed in IR on 08/26/2019 Follow ID recs for ABX Follow nephrology recs Continue TPN DVT/GI PPX: heparin SQ/ protonix D/W RN and RT, pt CODE:FULL HARMEET BEE MD September 07, 2019 13:04
[2019-09-07] MEDS: IV NORMAL SALINE 1000ML BAG 1,000 ML IV SCH (13:37)
--- NOTE | 2019-09-07 15:15 | NUR ---
Patient transported outside via wheelchair, mask. Sat outside with RN near main entrance, fountain for 20 minutes. Patient wheeled back into room, bathed, and placed back in bed with help of RN. See assessments, VS.
[2019-09-07] MEDS: ENOXAPARIN 40 MG/0.4 ML SYRINGE. SQ SCH (16:19)
--- NOTE | 2019-09-07 16:25 | NUR ---
SS following up with discharge planning. SS reviewed pt chart and discussed with pt RN. Pt is on the trach collar, TPN, and IV antibiotics. Pt has continued KAYLIN drains and NG tube. Pt continuing to improve with PT/OT. [facility] reporting that they still need additional information from pt's daughter to complete disability application. SS will continue to follow for discharge planning.
--- NOTE | 2019-09-07 19:57 | PDOC ---
SURGICAL PROGRESS NOTE Subjective Pt off ventilator and sitting in chair Vital Signs Vital Signs Date Time Temp Pulse Resp B/P (MAP) Pulse Ox O2 Delivery O2 Flow Rate FiO2 09/07/19 18:00 74 28 110/64 (79) 98 Tracheal Collar 6.0 09/07/19 17:00 98.2 98.2 I&O Intake and Output 09/07/19 07:00 Intake Total 3204.1 ml Output Total 2120 ml Balance 1084.1 ml Intake Oral 0 ml IV Total 3204.1 ml Output Urine Total 1685 ml Gastric Drainage Total 150 ml Drainage Total 285 ml General: Alert, Cooperative Abdomen: Soft, Other (drains in place) Labs Laboratory Tests Test 09/05/19 23:33 09/06/19 00:09 09/06/19 05:10 09/06/19 05:20 O2 Saturation 98 % (92-99) Arterial Blood pH 7.42 (7.35-7.45) Arterial Blood pCO2 at Patient Temp 78 mmHg (35-46) Arterial Blood pO2 at Patient Temp 122 mmHg (75-108) Arterial Blood HCO3 49 mmol/L (21-28) Arterial Blood Base Excess 22 mmol/L (-3-3) FiO2 32 Glucose (Fingerstick) 227 mg/dL (70-99) 153 mg/dL (70-99) White Blood Count 11.3 x10^3/uL (4.0-11.0) Red Blood Count 2.58 x10^6/uL (3.50-5.40) Hemoglobin 7.4 g/dL (12.0-15.5) Hematocrit 22.7 % (36.0-47.0) Mean Corpuscular Volume 88 fL (79-100) Mean Corpuscular Hemoglobin 29 pg (25-35) Mean Corpuscular Hemoglobin Concent 32 g/dL (31-37) Red Cell Distribution Width 18.1 % (11.5-14.5) Platelet Count 485 x10^3/uL (140-400) Neutrophils (%) (Auto) 74 % (31-73) Lymphocytes (%) (Auto) 19 % (24-48) Monocytes (%) (Auto) 7 % (0-9) Eosinophils (%) (Auto) 1 % (0-3) Basophils (%) (Auto) 0 % (0-3) Neutrophils # (Auto) 8.3 x10^3/uL (1.8-7.7) Lymphocytes # (Auto) 2.1 x10^3/uL (1.0-4.8) Monocytes # (Auto) 0.7 x10^3/uL (0.0-1.1) Eosinophils # (Auto) 0.1 x10^3/uL (0.0-0.7) Basophils # (Auto) 0.0 x10^3/uL (0.0-0.2) Test 09/06/19 08:00 09/06/19 12:29 09/06/19 17:42 09/06/19 23:41 O2 Saturation 97 % (92-99) Arterial Blood pH 7.67 (7.35-7.45) Arterial Blood pCO2 at Patient Temp 37 mmHg (35-46) Arterial Blood pO2 at Patient Temp 80 mmHg (75-108) Arterial Blood HCO3 42 mmol/L (21-28) Arterial Blood Base Excess 20 mmol/L (-3-3) FiO2 40 Glucose (Fingerstick) 251 mg/dL (70-99) 122 mg/dL (70-99) 207 mg/dL (70-99) Test 09/07/19 06:45 09/07/19 06:53 09/07/19 09:30 09/07/19 12:31 Sodium Level 140 mmol/L (136-145) Potassium Level 3.9 mmol/L (3.5-5.1) Chloride Level 99 mmol/L (98-107) Carbon Dioxide Level 41 mmol/L (21-32) Anion Gap 0 (6-14) Blood Urea Nitrogen 30 mg/dL (7-20) Creatinine 0.7 mg/dL (0.6-1.0) Estimated GFR (Cockcroft-Gault) 88.9 Glucose Level 147 mg/dL (70-99) Calcium Level 8.8 mg/dL (8.5-10.1) Glucose (Fingerstick) 146 mg/dL (70-99) 258 mg/dL (70-99) O2 Saturation 97 % (92-99) Arterial Blood pH 7.50 (7.35-7.45) Arterial Blood pCO2 at Patient Temp 54 mmHg (35-46) Arterial Blood pO2 at Patient Temp 106 mmHg (75-108) Arterial Blood HCO3 41 mmol/L (21-28) Arterial Blood Base Excess 16 mmol/L (-3-3) FiO2 30% trial Test 09/07/19 16:28 Glucose (Fingerstick) 141 mg/dL (70-99) Laboratory Tests Test 09/06/19 23:41 09/07/19 06:45 09/07/19 06:53 09/07/19 09:30 Glucose (Fingerstick) 207 mg/dL (70-99) 146 mg/dL (70-99) Sodium Level 140 mmol/L (136-145) Potassium Level 3.9 mmol/L (3.5-5.1) Chloride Level 99 mmol/L (98-107) Carbon Dioxide Level 41 mmol/L (21-32) Anion Gap 0 (6-14) Blood Urea Nitrogen 30 mg/dL (7-20) Creatinine 0.7 mg/dL (0.6-1.0) Estimated GFR (Cockcroft-Gault) 88.9 Glucose Level 147 mg/dL (70-99) Calcium Level 8.8 mg/dL (8.5-10.1) O2 Saturation 97 % (92-99) Arterial Blood pH 7.50 (7.35-7.45) Arterial Blood pCO2 at Patient Temp 54 mmHg (35-46) Arterial Blood pO2 at Patient Temp 106 mmHg (75-108) Arterial Blood HCO3 41 mmol/L (21-28) Arterial Blood Base Excess 16 mmol/L (-3-3) FiO2 30% trial Test 09/07/19 12:31 09/07/19 16:28 Glucose (Fingerstick) 258 mg/dL (70-99) 141 mg/dL (70-99) Problem List Problems Medical Problems: (1) Acute pancreatitis Status: Acute (2) Cholelithiasis Status: Acute Assessment/Plan s/p lap exploration appears to be improving cont supportive care. DAVON SIMMS MD September 07, 2019 19:57
[2019-09-07] MEDS ORDERED: [UNRECOGNIZED DRUG - OTHER] IV SCH ×8 (22:00)
[2019-09-07] MEDS ORDERED: AMINO ACID IV SCH ×8 (22:00)
[2019-09-07] MEDS ORDERED: DEXTROSE 70% IV SCH ×8 (22:00)
[2019-09-07] MEDS ORDERED: TOTAL PARENTERAL NUTRITION IV SCH ×8 (22:00)
[2019-09-08] VITALS (24 sets, daily range): BP systolic 95–173; BP diastolic 54–99
[2019-09-08] MEDS: INSULIN LISPRO 300 UNITS/3 ML VIAL. SQ SCH ×4 (00:46→17:46)
[2019-09-08] MEDS: fentaNYL PF VIAL 100 MCG/2 ML VIAL IVP PRN ×5 (04:50→21:47)
[2019-09-08] MEDS: MEROPENEM 1 GM in IV NORMAL SALINE 100ML 100 ML IV SCH ×3 (05:48→21:59)
[2019-09-08] MEDS: DEXMEDETOMIDINE 400 MCG in IV NORMAL SALINE 100ML 96 ML IV PRN ×3 (05:51→18:45)
[2019-09-08 06:36] LABS: CALCIUM 8.6 mg/dL (8.5-10.1); CREATININE 0.7 mg/dL (0.6-1.0); GFR 88.9; MAGNESIUM 1.9 mg/dL (1.8-2.4)
[2019-09-08 08:14] LABS: HEMATOCRIT 23.8 % (36.0-47.0); HEMOGLOBIN 7.8 g/dL (12.0-15.5); RED BLOOD COUNT 2.72 x10^6/uL (3.50-5.40); RED CELL DISTRIBUTION WIDTH 18.2 % (11.5-14.5); WHITE BLOOD COUNT 8.3 x10^3/uL (4.0-11.0)
[2019-09-08] MEDS: PANTOPRAZOLE IV PUSH 40 MG VIAL. IVP SCH (08:22)
[2019-09-08] MEDS: FUROSEMIDE 40 MG/4 ML VIAL. IVP SCH ×2 (08:23→14:16)
--- NOTE | 2019-09-08 08:30 | PDOC ---
Infectious Disease Note Subjective: Subjective Patient comfortable, arousable,says feels okay off vent, trach o2 Vital Signs: Vital Signs Vital Signs Date Time Temp Pulse Resp B/P (MAP) Pulse Ox O2 Delivery O2 Flow Rate FiO2 09/08/19 08:00 100 Tracheal Collar 09/08/19 06:00 84 20 105/57 (73) 8.0 09/08/19 04:00 98.5 98.5 Physical Exam: PHYSICAL EXAM GENERAL: Severely encephalopathic trying to talk but has a lot of secretions and is confused HEENT: oral cavity dry, NGT NECK: Trach with speaking valve LUNGS: no rhonchi HEART: S1, S2, regular ABDOMEN: mod Distended, hypoactive BS, tender, + drainsx1 : Lind (08/01) EXTREMITIES: Generalized edema, improving, no cyanosis, SCDs bilaterally SKIN: Warm and dry. No generalized rash. 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 PICC(08/17) clean Medications: Inpatient Meds: Current Medications Medications (Trade) Dose Ordered Sig/Yvon Start Time Stop Time Status Last Admin Dose Admin Acetaminophen (Tylenol Supp) 650 mg PRN Q6HRS PRN 07/12/19 10:30 08/23/19 09:12 650 MG Acetaminophen (Tylenol) 650 mg PRN Q6HRS PRN 07/09/19 03:36 08/31/19 10:25 DC 08/04/19 19:56 650 MG Albumin Human 100 ml @ 100 mls/hr 1X PRN PRN 09/06/19 01:30 Albuterol Sulfate (Ventolin Neb Soln) 2.5 mg 1X ONCE 07/05/19 22:30 07/05/19 22:31 DC 07/06/19 00:56 2.5 MG Alteplase, Recombinant (Cathflo For Central Catheter Clearance) 1 mg 1X ONCE 08/12/19 10:45 08/12/19 10:46 DC 08/12/19 11:44 1 MG Amino Acids/ Glycerin/ Electrolytes 1,000 ml @ 75 mls/hr [id number] 08/08/19 21:15 UNV Artificial Tears (Artificial Tears) 1 drop PRN Q15MIN PRN 08/17/19 05:30 09/05/19 08:08 1 DROP Atenolol (Tenormin) 100 mg DAILY 07/05/19 09:00 07/04/19 20:08 DC Atropine Sulfate (ATROPINE 0.5mg SYRINGE) 0.5 mg PRN Q5MIN PRN 07/21/19 08:15 Benzocaine (Hurricaine One) 1 spray 1X ONCE 07/08/19 14:30 07/08/19 14:31 DC 07/08/19 16:38 1 SPRAY Bisacodyl (Dulcolax Supp) 10 mg STK-MED ONCE 08/15/19 10:59 08/15/19 10:59 DC Bumetanide (Bumex) 2 mg DAILY 08/26/19 10:00 09/05/19 17:15 DC 09/05/19 08:07 2 MG Bupivacaine HCl/ Epinephrine Bitart (Sensorcain-Epi 0.5%-1:[id number] Mpf) 30 ml STK-MED ONCE 08/15/19 10:58 08/15/19 10:58 DC 08/15/19 12:01 7 ML Calcium Carbonate/ Glycine (Tums) 500 mg PRN [id number] PRN 07/06/19 17:45 08/31/19 10:25 DC Calcium Chloride 1000 mg/Sodium Chloride 110 ml @ 220 mls/hr 1X ONCE 07/05/19 22:30 07/05/19 22:59 DC 07/05/19 22:11 220 MLS/HR Calcium Chloride 3000 mg/Sodium Chloride 1,030 ml @ 50 mls/hr [id number] 07/07/19 08:00 07/09/19 15:23 DC 07/09/19 02:17 50 MLS/HR Calcium Gluconate (Calcium Gluconate) 2,000 mg 1X ONCE 07/07/19 02:15 07/07/19 02:16 DC 07/07/19 02:19 2,000 MG Calcium Gluconate 1000 mg/Sodium Chloride 110 ml @ 220 mls/hr 1X ONCE 07/06/19 03:30 07/06/19 03:59 DC 07/06/19 03:21 220 MLS/HR Calcium Gluconate 2000 mg/Sodium Chloride 120 ml @ 220 mls/hr 1X ONCE 07/06/19 07:30 07/06/19 08:02 DC 07/06/19 09:05 220 MLS/HR Cefepime HCl (Maxipime) 2 gm Q12HR 07/13/19 09:00 07/27/19 09:58 DC 07/26/19 20:56 2 GM Cellulose (Surgicel Fibrillar 1x2) 1 each STK-MED ONCE 07/25/19 11:00 07/25/19 11:01 DC Cellulose (Surgicel Hemostat 2x14) 1 each STK-MED ONCE 08/15/19 10:58 08/15/19 10:59 DC Cellulose (Surgicel Hemostat 4x8) 1 each STK-MED ONCE 08/15/19 10:58 08/15/19 10:59 DC Cyclobenzaprine HCl (Flexeril) 10 mg PRN Q6HRS PRN 08/18/19 10:45 Daptomycin 430 mg/ Sodium Chloride 50 ml @ 100 mls/hr Q24H 08/13/19 13:00 08/18/19 20:58 DC 08/18/19 13:00 100 MLS/HR Daptomycin 450 mg/ Sodium Chloride 50 ml @ 100 mls/hr Q24H 09/04/19 09:00 09/07/19 09:25 100 MLS/HR Daptomycin 485 mg/ Sodium Chloride 50 ml @ 100 mls/hr Q24H 08/22/19 11:00 08/30/19 07:44 DC 08/29/19 13:10 100 MLS/HR Daptomycin 500 mg/ Sodium Chloride 50 ml @ 100 mls/hr Q48H 07/13/19 08:30 07/29/19 10:07 DC 07/29/19 09:57 100 MLS/HR Dexamethasone Sodium Phosphate (Decadron) 4 mg STK-MED ONCE 08/15/19 10:56 08/15/19 10:57 DC Dexmedetomidine HCl 400 mcg/ Sodium Chloride 100 ml @ 0 mls/hr CONT PRN 07/21/19 08:15 09/08/19 05:51 16.1 MLS/HR Dextrose (Dextrose 50%-Water Syringe) 12.5 gm PRN Q15MIN PRN 07/04/19 09:30 Digoxin (Lanoxin) 125 mcg 1X ONCE 07/07/19 18:00 07/07/19 18:01 DC 07/07/19 17:10 125 MCG Diphenhydramine HCl (Benadryl) 25 mg 1X PRN PRN 08/12/19 15:45 08/13/19 15:44 DC Duloxetine HCl (Cymbalta) 30 mg DAILY 08/28/19 14:00 08/31/19 10:25 DC 08/29/19 09:48 30 MG Enoxaparin Sodium (Lovenox 100mg Syringe) 100 mg Q12HR 08/09/19 21:00 UNV Enoxaparin Sodium (Lovenox 40mg Syringe) 40 mg Q24H 09/04/19 17:00 09/07/19 16:19 40 MG Etomidate (Amidate) 8 mg 1X ONCE 07/11/19 08:30 07/11/19 08:31 DC 07/11/19 08:33 8 MG Fentanyl Citrate (Fentanyl 2ml Vial) 25 mcg PRN Q4HRS PRN 09/05/19 13:15 09/08/19 04:50 25 MCG Fentanyl Citrate (Fentanyl 5ml Vial) 250 mcg 1X ONCE 08/26/19 09:15 08/26/19 09:16 DC 08/26/19 09:30 50 MCG Furosemide (Lasix) 40 mg [id number] 09/06/19 14:00 09/08/19 08:23 40 MG Haloperidol Lactate (Haldol Inj) 3 mg 1X ONCE 08/22/19 14:30 08/22/19 14:31 DC 08/22/19 14:37 3 MG Heparin Sodium (Porcine) (Hep Lock Adult) 500 unit STK-MED ONCE 07/26/19 09:29 07/26/19 09:30 DC Heparin Sodium (Porcine) (Heparin Sodium) 5,000 unit Q12HR 08/15/19 21:00 08/25/19 09:59 DC 08/24/19 20:57 5,000 UNIT Heparin Sodium (Porcine) 1000 unit/Sodium Chloride 1,001 ml @ 1,001 mls/hr 1X ONCE 08/15/19 12:00 08/15/19 12:59 DC Hydromorphone HCl (Dilaudid Standard LEGAL BILLING ANALYST) 12 mg STK-MED ONCE 08/19/19 15:50 08/30/19 11:24 DC Hydromorphone HCl (Dilaudid) 1 mg PRN Q4HRS PRN 08/22/19 19:00 09/05/19 17:10 DC 09/05/19 06:25 1 MG Info (CONTRAST GIVEN -- Rx MONITORING) 1 each PRN DAILY PRN 07/18/19 11:45 07/20/19 11:44 DC Info (Icu Electrolyte Protocol) 1 ea CONT PRN PRN 07/17/19 13:15 Info (PHARMACY MONITORING -- do not chart) 1 each PRN DAILY PRN 08/12/19 15:45 Info (Tpn Per Pharmacy) 1 each PRN DAILY PRN 07/06/19 12:30 UNV Insulin Human Lispro (HumaLOG) 0-9 UNITS Q6HRS 07/04/19 09:30 09/08/19 00:46 4 UNITS Insulin Human Regular (HumuLIN R VIAL) 5 unit 1X ONCE 07/05/19 22:30 07/05/19 22:31 DC 07/05/19 22:14 5 UNIT Iohexol (Omnipaque 240 Mg/ml) 30 ml 1X ONCE 07/18/19 11:30 07/18/19 11:33 DC 07/18/19 11:30 30 ML Iohexol (Omnipaque 300 Mg/ml) 50 ml STK-MED ONCE 08/15/19 10:58 08/15/19 10:59 DC Iohexol (Omnipaque 350 Mg/ml) 90 ml 1X ONCE 07/04/19 03:30 07/04/19 03:31 DC 07/04/19 03:25 90 ML Ketorolac Tromethamine (Toradol 30mg Vial) 30 mg 1X ONCE 07/04/19 03:00 07/04/19 03:01 DC 07/04/19 02:54 30 MG Lidocaine HCl (Buffered Lidocaine 1%) 6 ml 1X ONCE 08/30/19 14:15 08/30/19 14:16 DC 08/30/19 14:15 3 ML Lidocaine HCl (Glydo (Lidocaine) Jelly) 1 ramu 1X ONCE 07/08/19 14:30 07/08/19 14:31 DC 07/08/19 16:38 1 RAMU Lidocaine HCl (Xylocaine-Mpf 1% 2ml Vial) 2 ml PRN 1X PRN 08/15/19 07:00 08/16/19 06:59 DC Linezolid/Dextrose 300 ml @ 300 mls/hr Q12HR 09/04/19 09:00 09/07/19 08:11 DC 09/06/19 21:08 300 MLS/HR Lorazepam (Ativan Inj) 2 mg PRN Q4HRS PRN 09/04/19 19:15 09/05/19 22:20 2 MG Magnesium Sulfate 50 ml @ 25 mls/hr 1X ONCE 08/28/19 09:00 08/28/19 10:59 DC 08/28/19 10:44 25 MLS/HR Meropenem 1 gm/ Sodium Chloride 100 ml @ 200 mls/hr Q8HRS 08/16/19 14:00 09/08/19 05:48 200 MLS/HR Meropenem 500 mg/ Sodium Chloride 50 ml @ 100 mls/hr Q12H 07/27/19 10:00 08/16/19 12:37 DC 08/16/19 10:45 100 MLS/HR Metoclopramide HCl (Reglan Vial) 10 mg PRN Q3HRS PRN 08/27/19 16:45 09/01/19 04:25 10 MG Metoprolol Tartrate (Lopressor Vial) 5 mg 1X ONCE 09/04/19 15:15 09/04/19 15:16 DC 09/04/19 15:31 5 MG Metronidazole 100 ml @ 100 mls/hr Q8HRS 08/02/19 10:00 08/09/19 08:10 DC 08/09/19 06:04 100 MLS/HR Micafungin Sodium 100 mg/Dextrose 100 ml @ 100 mls/hr Q24H 08/22/19 11:00 09/07/19 12:40 100 MLS/HR Midazolam HCl (Versed) 5 mg 1X ONCE 08/26/19 09:15 08/26/19 09:16 DC 08/26/19 09:30 1 MG Midazolam HCl 100 mg/Sodium Chloride 100 ml @ 7 mls/hr CONT PRN 07/16/19 16:00 07/27/19 15:35 7 MLS/HR Midazolam HCl 50 mg/Sodium Chloride 50 ml @ 0 mls/hr CONT PRN 07/11/19 08:15 07/16/19 15:59 DC 07/14/19 22:39 7 MLS/HR Morphine Sulfate (Morphine Sulfate) 2 mg PRN Q2HR PRN 07/04/19 05:00 07/05/19 14:15 DC 07/05/19 12:26 2 MG Multi-Ingred Cream/Lotion/Oil/ Oint (Artificial Tears Eye Ointment) 1 ramu PRN Q1HR PRN 07/13/19 17:30 08/01/19 08:19 1 RAMU Naloxone HCl (Narcan) 0.4 mg PRN Q2MIN PRN 08/15/19 14:30 UNV Norepinephrine Bitartrate 8 mg/ Dextrose 258 ml @ 17.299 mls/ hr CONT PRN 07/05/19 15:30 08/05/19 09:19 DC 08/02/19 12:48 20.9 MLS/HR Ondansetron HCl (Zofran) 4 mg STK-MED ONCE 08/15/19 10:56 08/15/19 10:57 DC Pantoprazole Sodium (PROTONIX VIAL for IV PUSH) 40 mg DAILYAC 07/04/19 11:30 09/08/19 08:22 40 MG Phenylephrine HCl (PHENYLEPHRINE in 0.9% NACL PF) 1 mg STK-MED ONCE 08/15/19 12:34 08/15/19 12:34 DC Piperacillin Sod/ Tazobactam Sod 4.5 gm/Sodium Chloride 100 ml @ 200 mls/hr 1X ONCE 07/04/19 06:00 07/04/19 06:29 DC 07/04/19 05:44 200 MLS/HR Potassium Chloride 15 meq/ Bicarbonate Dialysis Soln w/ out KCl 5,007.5 ml @ 1,000 mls/ hr Q5H1M 07/17/19 20:00 07/21/19 13:08 DC 07/20/19 18:14 1,000 MLS/HR Potassium Chloride 20 meq/ Bicarbonate Dialysis Soln w/ out KCl 5,010 ml @ 1,000 mls/hr Q5H1M 07/13/19 16:00 07/17/19 19:59 DC 07/17/19 14:54 1,000 MLS/HR Potassium Chloride 75 meq/ Magnesium Sulfate 15 meq/ Multivitamins 10 ml/Chromium/ Copper/Manganese/ Seleni/Zn 0.5 ml/ Insulin Human Regular 15 unit/ Total Parenteral Nutrition/Amino Acids/Dextrose/ Fat Emulsion Intravenous 1,920 ml @ 80 mls/hr TPN CONT 08/27/19 22:00 08/28/19 21:59 DC 08/27/19 22:41 80 MLS/HR Potassium Chloride 75 meq/ Magnesium Sulfate 15 meq/Calcium Gluconate 8 meq/ Multivitamins 10 ml/Chromium/ Copper/Manganese/ Seleni/Zn 0.5 ml/ Insulin Human Regular 15 unit/ Total Parenteral Nutrition/Amino Acids/Dextrose/ Fat Emulsion Intravenous 1,920 ml @ 80 mls/hr TPN CONT 08/25/19 22:00 08/26/19 21:59 DC 08/25/19 22:28 80 MLS/HR Potassium Chloride 75 meq/ Magnesium Sulfate 15 meq/Calcium Gluconate 8 meq/ Multivitamins 10 ml/Chromium/ Copper/Manganese/ Seleni/Zn 0.5 ml/ Insulin Human Regular 20 unit/ Total Parenteral Nutrition/Amino Acids/Dextrose/ Fat Emulsion Intravenous 1,920 ml @ 80 mls/hr TPN CONT 08/24/19 22:00 08/25/19 21:59 DC 08/24/19 22:00 80 MLS/HR Potassium Chloride 75 meq/ Magnesium Sulfate 15 meq/Calcium Gluconate 8 meq/ Multivitamins 10 ml/Chromium/ Copper/Manganese/ Seleni/Zn 0.5 ml/ Insulin Human Regular 25 unit/ Total Parenteral Nutrition/Amino Acids/Dextrose/ Fat Emulsion Intravenous 1,920 ml @ 80 mls/hr TPN CONT 08/22/19 22:00 08/23/19 21:59 DC 08/22/19 23:08 80 MLS/HR Potassium Chloride 75 meq/ Magnesium Sulfate 20 meq/Calcium Gluconate 10 meq/ Multivitamins 10 ml/Chromium/ Copper/Manganese/ Seleni/Zn 0.5 ml/ Insulin Human Regular 25 unit/ Total Parenteral Nutrition/Amino Acids/Dextrose/ Fat Emulsion Intravenous 1,920 ml @ 80 mls/hr TPN CONT 08/21/19 22:00 08/22/19 21:59 DC 08/21/19 22:04 80 MLS/HR Potassium Chloride 75 meq/ Magnesium Sulfate 20 meq/Calcium Gluconate 10 meq/ Multivitamins 10 ml/Chromium/ Copper/Manganese/ Seleni/Zn 0.5 ml/ Insulin Human Regular 30 unit/ Total Parenteral Nutrition/Amino Acids/Dextrose/ Fat Emulsion Intravenous 1,920 ml @ 80 mls/hr TPN CONT 08/20/19 22:00 08/21/19 22:00 DC 08/20/19 21:51 80 MLS/HR Potassium Chloride 80 meq/ Magnesium Sulfate 20 meq/ Multivitamins 10 ml/Chromium/ Copper/Manganese/ Seleni/Zn 0.5 ml/ Insulin Human Regular 15 unit/ Total Parenteral Nutrition/Amino Acids/Dextrose/ Fat Emulsion Intravenous 1,920 ml @ 80 mls/hr TPN CONT 08/30/19 22:00 08/31/19 21:59 DC 08/30/19 21:40 80 MLS/HR Potassium Chloride 80 meq/ Magnesium Sulfate 20 meq/ Multivitamins 10 ml/Chromium/ Copper/Manganese/ Seleni/Zn 1 ml/ Insulin Human Regular 15 unit/ Total Parenteral Nutrition/Amino Acids/Dextrose/ Fat Emulsion Intravenous 1,920 ml @ 80 mls/hr TPN CONT 08/31/19 22:00 09/01/19 21:59 DC 08/31/19 22:04 80 MLS/HR Potassium Chloride 90 meq/ Magnesium Sulfate 20 meq/ Multivitamins 10 ml/Chromium/ Copper/Manganese/ Seleni/Zn 1 ml/ Insulin Human Regular 15 unit/ Total Parenteral Nutrition/Amino Acids/Dextrose/ Fat Emulsion Intravenous 1,800 ml @ 75 mls/hr TPN CONT 09/07/19 22:00 09/08/19 21:59 09/07/19 22:28 75 MLS/HR Potassium Chloride/Water 100 ml @ 100 mls/hr 1X ONCE 09/01/19 11:00 09/01/19 11:59 DC 09/01/19 11:34 100 MLS/HR Potassium Phosphate 20 mmol/ Sodium Chloride 106.6667 ml @ 51.667 m... 1X ONCE 07/13/19 13:00 07/13/19 15:03 DC 07/13/19 12:51 51.667 MLS/HR Potassium Acetate 30 meq/Magnesium Sulfate 20 meq/ Calcium Gluconate 10 meq/ Multivitamins 10 ml/Chromium/ Copper/Manganese/ Seleni/Zn 0.5 ml/ Insulin Human Regular 30 unit/ Potassium Chloride 30 meq/ Total Parenteral Nutrition/Amino Acids/Dextrose/ Fat Emulsion Intravenous 1,920 ml @ 80 mls/hr TPN CONT 08/19/19 22:00 08/20/19 21:59 DC 08/19/19 22:34 80 MLS/HR Potassium Acetate 55 meq/Magnesium Sulfate 20 meq/ Calcium Gluconate 10 meq/ Multivitamins 10 ml/Chromium/ Copper/Manganese/ Seleni/Zn 0.5 ml/ Insulin Human Regular 30 unit/ Total Parenteral Nutrition/Amino Acids/Dextrose/ Fat Emulsion Intravenous 1,920 ml @ 80 mls/hr TPN CONT 08/18/19 22:00 08/19/19 21:59 DC 08/19/19 01:00 80 MLS/HR Potassium Acetate 55 meq/Magnesium Sulfate 20 meq/ Calcium Gluconate 10 meq/ Multivitamins 10 ml/Chromium/ Copper/Manganese/ Seleni/Zn 0.5 ml/ Insulin Human Regular 35 unit/ Total Parenteral Nutrition/Amino Acids/Dextrose/ Fat Emulsion Intravenous 1,920 ml @ 80 mls/hr TPN CONT 08/16/19 22:00 08/17/19 21:59 DC 08/16/19 22:02 80 MLS/HR Potassium Acetate 65 meq/Magnesium Sulfate 20 meq/ Calcium Gluconate 10 meq/ Multivitamins 10 ml/Chromium/ Copper/Manganese/ Seleni/Zn 0.5 ml/ Insulin Human Regular 30 unit/ Total Parenteral Nutrition/Amino Acids/Dextrose/ Fat Emulsion Intravenous 1,920 ml @ 80 mls/hr TPN CONT 08/17/19 22:00 08/18/19 21:59 DC 08/17/19 22:22 80 MLS/HR Prochlorperazine Edisylate (Compazine) 5 mg PACU PRN PRN 08/15/19 07:00 08/16/19 06:59 DC Propofol 20 ml @ As Directed STK-MED ONCE 08/15/19 12:26 08/15/19 12:27 DC Ringer's Solution 1,000 ml @ 30 mls/hr Q24H 08/15/19 07:00 08/15/19 18:59 DC Rocuronium [place] (Zemuron) 50 mg STK-MED ONCE 08/15/19 10:56 08/15/19 10:57 DC Sevoflurane (Ultane) 60 ml STK-MED ONCE 08/15/19 12:26 08/15/19 12:27 DC Sodium Bicarbonate 50 meq/Sodium Chloride 1,050 ml @ 75 mls/hr Q14H 07/06/19 07:30 07/11/19 10:28 DC 07/10/19 21:10 75 MLS/HR Sodium Acetate 50 meq/Potassium Acetate 55 meq/ Magnesium Sulfate 20 meq/Calcium Gluconate 10 meq/ Multivitamins 10 ml/Chromium/ Copper/Manganese/ Seleni/Zn 0.5 ml/ Insulin Human Regular 35 unit/ Total Parenteral Nutrition/Amino Acids/Dextrose/ Fat Emulsion Intravenous 1,800 ml @ 75 mls/hr TPN CONT 08/13/19 22:00 08/14/19 21:59 DC 08/13/19 22:03 75 MLS/HR Sodium Chloride 1,000 ml @ 25 mls/hr Q24H 08/15/19 14:30 UNV Sodium Chloride (Normal Saline Flush) 3 ml QSHIFT PRN 08/15/19 13:45 Sodium Chloride 90 meq/Calcium Gluconate 10 meq/ Multivitamins 10 ml/Chromium/ Copper/Manganese/ Seleni/Zn 0.5 ml/ Total Parenteral Nutrition/Amino Acids/Dextrose/ Fat Emulsion Intravenous 1,512 ml @ 63 mls/hr TPN CONT 07/06/19 22:00 07/07/19 21:59 DC 07/06/19 22:06 63 MLS/HR Sodium Chloride 90 meq/Calcium Gluconate 10 meq/ Multivitamins 10 ml/Chromium/ Copper/Manganese/ Seleni/Zn 1 ml/ Total Parenteral Nutrition/Amino Acids/Dextrose/ Fat Emulsion Intravenous 55.005 ml @ 2.292 mls/hr TPN CONT 07/06/19 22:00 07/06/19 12:33 DC Sodium Chloride 90 meq/Magnesium Sulfate 10 meq/ Calcium Gluconate 20 meq/ Multivitamins 10 ml/Chromium/ Copper/Manganese/ Seleni/Zn 0.5 ml/ Total Parenteral Nutrition/Amino Acids/Dextrose/ Fat Emulsion Intravenous 1,512 ml @ 63 mls/hr TPN CONT 07/07/19 22:00 07/08/19 21:59 DC 07/07/19 22:25 63 MLS/HR Sodium Chloride 90 meq/Magnesium Sulfate 12 meq/ Calcium Gluconate 15 meq/ Multivitamins 10 ml/Chromium/ Copper/Manganese/ Seleni/Zn 0.5 ml/ Insulin Human Regular 25 unit/ Total Parenteral Nutrition/Amino Acids/Dextrose/ Fat Emulsion Intravenous 1,400 ml @ 58.333 mls/ hr TPN CONT 07/27/19 22:00 07/28/19 21:59 DC 07/27/19 21:41 58.333 MLS/HR Sodium Chloride 90 meq/Potassium Chloride 15 meq/ Magnesium Sulfate 12 meq/Calcium Gluconate 15 meq/ Multivitamins 10 ml/Chromium/ Copper/Manganese/ Seleni/Zn 0.5 ml/ Insulin Human Regular 25 unit/ Total Parenteral Nutrition/Amino Acids/Dextrose/ Fat Emulsion Intravenous 1,400 ml @ 58.333 mls/ hr TPN CONT 07/26/19 22:00 07/27/19 21:59 DC 07/26/19 22:13 58.333 MLS/HR Sodium Chloride 90 meq/Potassium Chloride 15 meq/ Potassium Phosphate 10 mmol/ Magnesium Sulfate 8 meq/Calcium Gluconate 15 meq/ Multivitamins 10 ml/Chromium/ Copper/Manganese/ Seleni/Zn 0.5 ml/ Insulin Human Regular 25 unit/ Total Parenteral Nutrition/Amino Acids/Dextrose/ Fat Emulsion Intravenous 1,400 ml @ 58.333 mls/ hr TPN CONT 07/24/19 22:00 07/25/19 21:59 DC 07/24/19 21:20 58.333 MLS/HR Sodium Chloride 90 meq/Potassium Chloride 15 meq/ Potassium Phosphate 10 mmol/ Magnesium Sulfate 10 meq/Calcium Gluconate 20 meq/ Multivitamins 10 ml/Chromium/ Copper/Manganese/ Seleni/Zn 0.5 ml/ Total Parenteral Nutrition/Amino Acids/Dextrose/ Fat Emulsion Intravenous 1,400 ml @ 58.333 mls/ hr TPN CONT 07/11/19 22:00 07/12/19 21:59 DC 07/11/19 21:42 58.333 MLS/HR Sodium Chloride 90 meq/Potassium Chloride 15 meq/ Potassium Phosphate 10 mmol/ Magnesium Sulfate 12 meq/Calcium Gluconate 15 meq/ Multivitamins 10 ml/Chromium/ Copper/Manganese/ Seleni/Zn 0.5 ml/ Insulin Human Regular 25 unit/ Total Parenteral Nutrition/Amino Acids/Dextrose/ Fat Emulsion Intravenous 1,400 ml @ 58.333 mls/ hr TPN CONT 07/25/19 22:00 07/26/19 21:59 DC 07/25/19 22:24 58.333 MLS/HR Sodium Chloride 90 meq/Potassium Chloride 15 meq/ Potassium Phosphate 15 mmol/ Magnesium Sulfate 10 meq/Calcium Gluconate 15 meq/ Multivitamins 10 ml/Chromium/ Copper/Manganese/ Seleni/Zn 0.5 ml/ Total Parenteral Nutrition/Amino Acids/Dextrose/ Fat Emulsion Intravenous 1,400 ml @ 58.333 mls/ hr TPN CONT 07/12/19 22:00 07/13/19 21:59 DC 07/12/19 22:17 58.333 MLS/HR Sodium Chloride 90 meq/Potassium Chloride 15 meq/ Potassium Phosphate 15 mmol/ Magnesium Sulfate 10 meq/Calcium Gluconate 20 meq/ Multivitamins 10 ml/Chromium/ Copper/Manganese/ Seleni/Zn 0.5 ml/ Total Parenteral Nutrition/Amino Acids/Dextrose/ Fat Emulsion Intravenous 1,200 ml @ 50 mls/hr TPN CONT 07/10/19 22:00 07/10/19 14:17 DC Sodium Chloride 90 meq/Potassium Chloride 15 meq/ Potassium Phosphate 18 mmol/ Magnesium Sulfate 8 meq/Calcium Gluconate 15 meq/ Multivitamins 10 ml/Chromium/ Copper/Manganese/ Seleni/Zn 0.5 ml/ Insulin Human Regular 10 unit/ Total Parenteral Nutrition/Amino Acids/Dextrose/ Fat Emulsion Intravenous 1,400 ml @ 58.333 mls/ hr TPN CONT 07/15/19 22:00 07/16/19 21:59 DC 07/15/19 21:43 58.333 MLS/HR Sodium Chloride 90 meq/Potassium Chloride 15 meq/ Potassium Phosphate 18 mmol/ Magnesium Sulfate 8 meq/Calcium Gluconate 15 meq/ Multivitamins 10 ml/Chromium/ Copper/Manganese/ Seleni/Zn 0.5 ml/ Insulin Human Regular 15 unit/ Total Parenteral Nutrition/Amino Acids/Dextrose/ Fat Emulsion Intravenous 1,400 ml @ 58.333 mls/ hr TPN CONT 07/18/19 22:00 07/19/19 21:59 DC 07/18/19 21:47 58.333 MLS/HR Sodium Chloride 90 meq/Potassium Chloride 15 meq/ Potassium Phosphate 18 mmol/ Magnesium Sulfate 8 meq/Calcium Gluconate 15 meq/ Multivitamins 10 ml/Chromium/ Copper/Manganese/ Seleni/Zn 0.5 ml/ Insulin Human Regular 20 unit/ Total Parenteral Nutrition/Amino Acids/Dextrose/ Fat Emulsion Intravenous 1,400 ml @ 58.333 mls/ hr TPN CONT 07/21/19 22:00 07/22/19 21:59 DC 07/21/19 22:45 58.333 MLS/HR Sodium Chloride 90 meq/Potassium Chloride 15 meq/ Potassium Phosphate 18 mmol/ Magnesium Sulfate 8 meq/Calcium Gluconate 15 meq/ Multivitamins 10 ml/Chromium/ Copper/Manganese/ Seleni/Zn 0.5 ml/ Total Parenteral Nutrition/Amino Acids/Dextrose/ Fat Emulsion Intravenous 1,400 ml @ 58.333 mls/ hr TPN CONT 07/14/19 22:00 07/15/19 21:59 DC 07/14/19 22:00 58.333 MLS/HR Sodium Chloride 90 meq/Potassium Phosphate 15 mmol/ Magnesium Sulfate 12 meq/Calcium Gluconate 15 meq/ Multivitamins 10 ml/Chromium/ Copper/Manganese/ Seleni/Zn 0.5 ml/ Insulin Human Regular 30 unit/ Total Parenteral Nutrition/Amino Acids/Dextrose/ Fat Emulsion Intravenous 1,400 ml @ 58.333 mls/ hr TPN CONT 07/29/19 22:00 07/30/19 21:59 DC 07/29/19 21:49 58.333 MLS/HR Sodium Chloride 90 meq/Potassium Phosphate 15 mmol/ Magnesium Sulfate 12 meq/Calcium Gluconate 15 meq/ Multivitamins 10 ml/Chromium/ Copper/Manganese/ Seleni/Zn 0.5 ml/ Insulin Human Regular 40 unit/ Total Parenteral Nutrition/Amino Acids/Dextrose/ Fat Emulsion Intravenous 1,400 ml @ 58.333 mls/ hr TPN CONT 07/30/19 22:00 07/31/19 21:59 DC 07/30/19 21:21 58.333 MLS/HR Sodium Chloride 90 meq/Potassium Phosphate 19 mmol/ Magnesium Sulfate 12 meq/Calcium Gluconate 15 meq/ Multivitamins 10 ml/Chromium/ Copper/Manganese/ Seleni/Zn 0.5 ml/ Insulin Human Regular 40 unit/ Total Parenteral Nutrition/Amino Acids/Dextrose/ Fat Emulsion Intravenous 1,400 ml @ 58.333 mls/ hr TPN CONT 07/31/19 22:00 08/01/19 21:59 DC 07/31/19 21:54 58.333 MLS/HR Sodium Chloride 90 meq/Potassium Phosphate 5 mmol/ Magnesium Sulfate 12 meq/Calcium Gluconate 15 meq/ Multivitamins 10 ml/Chromium/ Copper/Manganese/ Seleni/Zn 0.5 ml/ Insulin Human Regular 30 unit/ Total Parenteral Nutrition/Amino Acids/Dextrose/ Fat Emulsion Intravenous 1,400 ml @ 58.333 mls/ hr TPN CONT 07/28/19 22:00 07/29/19 21:59 DC 07/28/19 22:08 58.333 MLS/HR Sodium Chloride 100 meq/Potassium Chloride 40 meq/ Magnesium Sulfate 15 meq/Calcium Gluconate 15 meq/ Multivitamins 10 ml/Chromium/ Copper/Manganese/ Seleni/Zn 0.5 ml/ Insulin Human Regular 35 unit/ Total Parenteral Nutrition/Amino Acids/Dextrose/ Fat Emulsion Intravenous 1,400 ml @ 58.333 mls/ hr TPN CONT 08/07/19 22:00 08/08/19 21:59 DC 08/07/19 22:46 58.333 MLS/HR Sodium Chloride 100 meq/Potassium Chloride 40 meq/ Magnesium Sulfate 20 meq/Calcium Gluconate 10 meq/ Multivitamins 10 ml/Chromium/ Copper/Manganese/ Seleni/Zn 0.5 ml/ Insulin Human Regular 35 unit/ Total Parenteral Nutrition/Amino Acids/Dextrose/ Fat Emulsion Intravenous 1,400 ml @ 58.333 mls/ hr TPN CONT 08/11/19 22:00 08/12/19 21:59 DC 08/12/19 00:06 58.333 MLS/HR Sodium Chloride 100 meq/Potassium Chloride 40 meq/ Magnesium Sulfate 20 meq/Calcium Gluconate 15 meq/ Multivitamins 10 ml/Chromium/ Copper/Manganese/ Seleni/Zn 0.5 ml/ Insulin Human Regular 35 unit/ Total Parenteral Nutrition/Amino Acids/Dextrose/ Fat Emulsion Intravenous 1,400 ml @ 58.333 mls/ hr TPN CONT 08/10/19 22:00 08/11/19 21:59 DC 08/10/19 22:27 58.333 MLS/HR Sodium Chloride 100 meq/Potassium Phosphate 10 mmol/ Magnesium Sulfate 12 meq/Calcium Gluconate 15 meq/ Multivitamins 10 ml/Chromium/ Copper/Manganese/ Seleni/Zn 0.5 ml/ Insulin Human Regular 35 unit/ Potassium Chloride 20 meq/ Total Parenteral Nutrition/Amino Acids/Dextrose/ Fat Emulsion Intravenous 1,400 ml @ 58.333 mls/ hr TPN CONT 08/04/19 22:00 08/05/19 21:59 DC 08/04/19 22:10 58.333 MLS/HR Sodium Chloride 100 meq/Potassium Phosphate 19 mmol/ Magnesium Sulfate 12 meq/Calcium Gluconate 15 meq/ Multivitamins 10 ml/Chromium/ Copper/Manganese/ Seleni/Zn 0.5 ml/ Insulin Human Regular 40 unit/ Potassium Chloride 20 meq/ Total Parenteral Nutrition/Amino Acids/Dextrose/ Fat Emulsion Intravenous 1,400 ml @ 58.333 mls/ hr TPN CONT 08/03/19 22:00 08/04/19 21:59 DC 08/03/19 21:20 58.333 MLS/HR Sodium Chloride 100 meq/Potassium Phosphate 5 mmol/ Magnesium Sulfate 12 meq/Calcium Gluconate 15 meq/ Multivitamins 10 ml/Chromium/ Copper/Manganese/ Seleni/Zn 0.5 ml/ Insulin Human Regular 35 unit/ Potassium Chloride 20 meq/ Total Parenteral Nutrition/Amino Acids/Dextrose/ Fat Emulsion Intravenous 1,400 ml @ 58.333 mls/ hr TPN CONT 08/05/19 22:00 08/06/19 21:59 DC 08/05/19 22:59 58.333 MLS/HR Succinylcholine Chloride (Anectine) 120 mg 1X ONCE 07/11/19 08:30 07/11/19 08:31 DC 07/11/19 08:34 120 MG Vecuronium [place] (Norcuron Bolus) 6 mg PRN Q6HRS PRN 08/25/19 19:15 08/25/19 19:35 DC Labs: Lab Laboratory Tests Test 09/07/19 09:30 09/07/19 12:31 09/07/19 16:28 09/08/19 00:44 O2 Saturation 97 % (92-99) Arterial Blood pH 7.50 (7.35-7.45) Arterial Blood pCO2 at Patient Temp 54 mmHg (35-46) Arterial Blood pO2 at Patient Temp 106 mmHg (75-108) Arterial Blood HCO3 41 mmol/L (21-28) Arterial Blood Base Excess 16 mmol/L (-3-3) FiO2 30% trial Glucose (Fingerstick) 258 mg/dL (70-99) 141 mg/dL (70-99) 165 mg/dL (70-99) Test 09/08/19 06:10 09/08/19 06:22 Sodium Level 139 mmol/L (136-145) Potassium Level 4.0 mmol/L (3.5-5.1) Chloride Level 100 mmol/L (98-107) Carbon Dioxide Level 39 mmol/L (21-32) Anion Gap 0 (6-14) Blood Urea Nitrogen 24 mg/dL (7-20) Creatinine 0.7 mg/dL (0.6-1.0) Estimated GFR (Cockcroft-Gault) 88.9 Glucose Level 118 mg/dL (70-99) Calcium Level 8.6 mg/dL (8.5-10.1) Phosphorus Level 3.0 mg/dL (2.6-4.7) Magnesium Level 1.9 mg/dL (1.8-2.4) Glucose (Fingerstick) 122 mg/dL (70-99) Objective: Assessment: Fever intermittent could be from underlying pancreatitis, Acute pancreatitis with persistent necrosis CT a/p 07/27 Increased ascites. 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 Leucocytosis JUANA,Hyperkalemia, Metabolic acidosis off dialysis Acute hypoxic resp failure ,bilateral pleural effusion and atelectasis hypocalcemia Prediabetes HTN s/p trach Plan: Plan of Care cont merrem 07/26 dc dapto cont Micafungin Off zyvox f/u cultures ,BC neg 09/03 Maintain aspiration precaution Supportive care YUNIOR JONES MD September 08, 2019 08:30
--- NOTE | 2019-09-08 10:04 | PDOC ---
SURGICAL PROGRESS NOTE Subjective Pt resting quietly Vital Signs Vital Signs Date Time Temp Pulse Resp B/P (MAP) Pulse Ox O2 Delivery O2 Flow Rate FiO2 09/08/19 09:08 28 99 Tracheal Collar 8.0 09/08/19 09:00 92 116/73 (87) 09/08/19 08:00 98.1 98.1 I&O Intake and Output 09/08/19 07:00 Intake Total 0 ml Output Total 4565 ml Balance -4565 ml Intake Oral 0 ml Output Urine Total 3705 ml Gastric Drainage Total 450 ml Drainage Total 410 ml # Bowel Movements 1 General: No acute distress Labs Laboratory Tests Test 09/06/19 12:29 09/06/19 17:42 09/06/19 23:41 09/07/19 06:45 Glucose (Fingerstick) 251 mg/dL (70-99) 122 mg/dL (70-99) 207 mg/dL (70-99) Sodium Level 140 mmol/L (136-145) Potassium Level 3.9 mmol/L (3.5-5.1) Chloride Level 99 mmol/L (98-107) Carbon Dioxide Level 41 mmol/L (21-32) Anion Gap 0 (6-14) Blood Urea Nitrogen 30 mg/dL (7-20) Creatinine 0.7 mg/dL (0.6-1.0) Estimated GFR (Cockcroft-Gault) 88.9 Glucose Level 147 mg/dL (70-99) Calcium Level 8.8 mg/dL (8.5-10.1) Test 09/07/19 06:53 09/07/19 09:30 09/07/19 12:31 09/07/19 16:28 Glucose (Fingerstick) 146 mg/dL (70-99) 258 mg/dL (70-99) 141 mg/dL (70-99) O2 Saturation 97 % (92-99) Arterial Blood pH 7.50 (7.35-7.45) Arterial Blood pCO2 at Patient Temp 54 mmHg (35-46) Arterial Blood pO2 at Patient Temp 106 mmHg (75-108) Arterial Blood HCO3 41 mmol/L (21-28) Arterial Blood Base Excess 16 mmol/L (-3-3) FiO2 30% trial Test 09/08/19 00:44 09/08/19 06:10 09/08/19 06:22 Glucose (Fingerstick) 165 mg/dL (70-99) 122 mg/dL (70-99) White Blood Count 8.3 x10^3/uL (4.0-11.0) Red Blood Count 2.72 x10^6/uL (3.50-5.40) Hemoglobin 7.8 g/dL (12.0-15.5) Hematocrit 23.8 % (36.0-47.0) Mean Corpuscular Volume 87 fL (79-100) Mean Corpuscular Hemoglobin 29 pg (25-35) Mean Corpuscular Hemoglobin Concent 33 g/dL (31-37) Red Cell Distribution Width 18.2 % (11.5-14.5) Platelet Count 380 x10^3/uL (140-400) Sodium Level 139 mmol/L (136-145) Potassium Level 4.0 mmol/L (3.5-5.1) Chloride Level 100 mmol/L (98-107) Carbon Dioxide Level 39 mmol/L (21-32) Anion Gap 0 (6-14) Blood Urea Nitrogen 24 mg/dL (7-20) Creatinine 0.7 mg/dL (0.6-1.0) Estimated GFR (Cockcroft-Gault) 88.9 Glucose Level 118 mg/dL (70-99) Calcium Level 8.6 mg/dL (8.5-10.1) Phosphorus Level 3.0 mg/dL (2.6-4.7) Magnesium Level 1.9 mg/dL (1.8-2.4) Laboratory Tests Test 09/07/19 12:31 09/07/19 16:28 09/08/19 00:44 09/08/19 06:10 Glucose (Fingerstick) 258 mg/dL (70-99) 141 mg/dL (70-99) 165 mg/dL (70-99) White Blood Count 8.3 x10^3/uL (4.0-11.0) Red Blood Count 2.72 x10^6/uL (3.50-5.40) Hemoglobin 7.8 g/dL (12.0-15.5) Hematocrit 23.8 % (36.0-47.0) Mean Corpuscular Volume 87 fL (79-100) Mean Corpuscular Hemoglobin 29 pg (25-35) Mean Corpuscular Hemoglobin Concent 33 g/dL (31-37) Red Cell Distribution Width 18.2 % (11.5-14.5) Platelet Count 380 x10^3/uL (140-400) Sodium Level 139 mmol/L (136-145) Potassium Level 4.0 mmol/L (3.5-5.1) Chloride Level 100 mmol/L (98-107) Carbon Dioxide Level 39 mmol/L (21-32) Anion Gap 0 (6-14) Blood Urea Nitrogen 24 mg/dL (7-20) Creatinine 0.7 mg/dL (0.6-1.0) Estimated GFR (Cockcroft-Gault) 88.9 Glucose Level 118 mg/dL (70-99) Calcium Level 8.6 mg/dL (8.5-10.1) Phosphorus Level 3.0 mg/dL (2.6-4.7) Magnesium Level 1.9 mg/dL (1.8-2.4) Test 09/08/19 06:22 Glucose (Fingerstick) 122 mg/dL (70-99) Problem List Problems Medical Problems: (1) Acute pancreatitis Status: Acute (2) Cholelithiasis Status: Acute Assessment/Plan Severe pancreatitis improving cont supportive care DAVON SIMMS MD September 08, 2019 10:04
--- NOTE | 2019-09-08 10:10 | NUR ---
SS following up with discharge planning. SS reviewed pt chart and discussed with pt RN. Pt remains on trach collar. Pt has NG tube, three KAYLIN drains, and IV antibiotics. Pt showing improvements with PT/OT, but having some difficulties with anxiety. HCFS reporting that they are attempting to reach pt's daughter for additional needed information for disability application. SS will continue to follow for discharge planning.
--- NOTE | 2019-09-08 10:14 | PDOC ---
Subjective: Subjective: Doing okay. Objective: Objective: She was able to spend a few minutes outside with her nurse yesterday. Vital Signs: Vital Signs Date Time Temp Pulse Resp B/P (MAP) Pulse Ox O2 Delivery O2 Flow Rate FiO2 09/08/19 09:08 28 99 Tracheal Collar 8.0 09/08/19 09:00 92 116/73 (87) 09/08/19 08:00 98.1 98.1 Labs: Laboratory Tests Test 09/07/19 12:31 09/07/19 16:28 09/08/19 00:44 09/08/19 06:10 Glucose (Fingerstick) 258 mg/dL 141 mg/dL 165 mg/dL White Blood Count 8.3 x10^3/uL Red Blood Count 2.72 x10^6/uL Hemoglobin 7.8 g/dL Hematocrit 23.8 % Mean Corpuscular Volume 87 fL Mean Corpuscular Hemoglobin 29 pg Mean Corpuscular Hemoglobin Concent 33 g/dL Red Cell Distribution Width 18.2 % Platelet Count 380 x10^3/uL Sodium Level 139 mmol/L Potassium Level 4.0 mmol/L Chloride Level 100 mmol/L Carbon Dioxide Level 39 mmol/L Anion Gap 0 Blood Urea Nitrogen 24 mg/dL Creatinine 0.7 mg/dL Estimated GFR (Cockcroft-Gault) 88.9 Glucose Level 118 mg/dL Calcium Level 8.6 mg/dL Phosphorus Level 3.0 mg/dL Magnesium Level 1.9 mg/dL Test 09/08/19 06:22 Glucose (Fingerstick) 122 mg/dL BLOOD CULTURE Preliminary NO GROWTH AFTER 4 DAYS PE: GEN: NAD - looks much better compared to earlier this week HEENT: NG bilious LUNGS: trach collar HEART: RRR ABD: soft NEURO/PSYCH: A & O 3 A/P: Gallstone pancreatitis, MOSF -- Continue support. Hemodynamically unstable?: No Is patient in severe pain?: No Is NPO status required?: Yes CYNDEE FALCON September 08, 2019 10:14
[2019-09-08] MEDS: MICAFUNGIN 100 MG in IV DEXTROSE 5% 100ML 100 ML IV SCH (10:53)
[2019-09-08] MEDS ORDERED: SALIVA STIMULANT AGENT 44ML SPRAY BOTTLE. PO PRN (11:00)
[2019-09-08] MEDS: TPN PER PHARMACY MC PRN (11:11)
--- NOTE | 2019-09-08 11:12 | NUR ---
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, 8 inches Weight: 83.310088 kg Current diet: NPO LABS: Sodium: 139 Potassium: 4 Chloride: 100 Calcium: 8.6 Corrected Calcium: 10.04 Magnesium: 1.9 CO2: 39 SCr: 0.7 Glucose: 122-165 Albumin: 2.2 AST: 50 ALT: 50 TPN FORMULA: TPN TYPE: Central Continuous AMINO ACIDS: 70 gm DEXTROSE: 250 gm LIPIDS: 30 gm SODIUM CHLORIDE: - mEq SODIUM ACETATE: - mEq SODIUM PHOSPHATE: - mmol POTASSIUM CHLORIDE: 110 mEq POTASSIUM ACETATE: - mEq POTASSIUM PHOSPHATE: - mmol MAGNESIUM: 20 mEq CALCIUM: - mEq INSULIN: 15 units MULTIPLE VITAMIN: 10 ml TRACE ELEMENTS: 1 ml(s) TPN PLAN: Decreased AA per dietary rec. Added 20 meq KCl for slight drop in K, high NG output. No other changes. Next labs Thursday. R: Continue TPN ABOVE. Will monitor electrolytes, glucose, and tolerance to TPN. [facility]STIAN VALLEJO [facility], 09/08/19 1112
--- NOTE | 2019-09-08 11:22 | PDOC ---
PULMONARY PROGRESS NOTES Subjective Patient looks a lot better today sitting up in the chair utilizing Passy-Luis Fernando valve able to phonate Patient intubated on 07/10 , s/p trach 07/24, Vitals Vital Signs Date Time Temp Pulse Resp B/P (MAP) Pulse Ox O2 Delivery O2 Flow Rate FiO2 09/08/19 11:00 108 28 154/78 (103) 96 Tracheal Collar 8.0 09/08/19 08:00 98.1 98.1 ROS: No Chest Pain, No Abdominal Pain, No Increase Cough General: Alert, No acute distress HEENT: Other (nc at perrl neck trach site ok no lad no thyromegaly) Lungs: Wheezing, Other (decrease bs) Cardiovascular: S1, S2 Abdomen: Soft, Non-tender, Other (distended) Neuro Exam: Alert Extremities: Other (+3 generalized edema ) Skin: Warm, Dry Labs Laboratory Tests Test 09/06/19 12:29 09/06/19 17:42 09/06/19 23:41 09/07/19 06:45 Glucose (Fingerstick) 251 mg/dL (70-99) 122 mg/dL (70-99) 207 mg/dL (70-99) Sodium Level 140 mmol/L (136-145) Potassium Level 3.9 mmol/L (3.5-5.1) Chloride Level 99 mmol/L (98-107) Carbon Dioxide Level 41 mmol/L (21-32) Anion Gap 0 (6-14) Blood Urea Nitrogen 30 mg/dL (7-20) Creatinine 0.7 mg/dL (0.6-1.0) Estimated GFR (Cockcroft-Gault) 88.9 Glucose Level 147 mg/dL (70-99) Calcium Level 8.8 mg/dL (8.5-10.1) Test 09/07/19 06:53 09/07/19 09:30 09/07/19 12:31 09/07/19 16:28 Glucose (Fingerstick) 146 mg/dL (70-99) 258 mg/dL (70-99) 141 mg/dL (70-99) O2 Saturation 97 % (92-99) Arterial Blood pH 7.50 (7.35-7.45) Arterial Blood pCO2 at Patient Temp 54 mmHg (35-46) Arterial Blood pO2 at Patient Temp 106 mmHg (75-108) Arterial Blood HCO3 41 mmol/L (21-28) Arterial Blood Base Excess 16 mmol/L (-3-3) FiO2 30% trial Test 09/08/19 00:44 09/08/19 06:10 09/08/19 06:22 Glucose (Fingerstick) 165 mg/dL (70-99) 122 mg/dL (70-99) White Blood Count 8.3 x10^3/uL (4.0-11.0) Red Blood Count 2.72 x10^6/uL (3.50-5.40) Hemoglobin 7.8 g/dL (12.0-15.5) Hematocrit 23.8 % (36.0-47.0) Mean Corpuscular Volume 87 fL (79-100) Mean Corpuscular Hemoglobin 29 pg (25-35) Mean Corpuscular Hemoglobin Concent 33 g/dL (31-37) Red Cell Distribution Width 18.2 % (11.5-14.5) Platelet Count 380 x10^3/uL (140-400) Sodium Level 139 mmol/L (136-145) Potassium Level 4.0 mmol/L (3.5-5.1) Chloride Level 100 mmol/L (98-107) Carbon Dioxide Level 39 mmol/L (21-32) Anion Gap 0 (6-14) Blood Urea Nitrogen 24 mg/dL (7-20) Creatinine 0.7 mg/dL (0.6-1.0) Estimated GFR (Cockcroft-Gault) 88.9 Glucose Level 118 mg/dL (70-99) Calcium Level 8.6 mg/dL (8.5-10.1) Phosphorus Level 3.0 mg/dL (2.6-4.7) Magnesium Level 1.9 mg/dL (1.8-2.4) Laboratory Tests Test 09/07/19 12:31 09/07/19 16:28 09/08/19 00:44 09/08/19 06:10 Glucose (Fingerstick) 258 mg/dL (70-99) 141 mg/dL (70-99) 165 mg/dL (70-99) White Blood Count 8.3 x10^3/uL (4.0-11.0) Red Blood Count 2.72 x10^6/uL (3.50-5.40) Hemoglobin 7.8 g/dL (12.0-15.5) Hematocrit 23.8 % (36.0-47.0) Mean Corpuscular Volume 87 fL (79-100) Mean Corpuscular Hemoglobin 29 pg (25-35) Mean Corpuscular Hemoglobin Concent 33 g/dL (31-37) Red Cell Distribution Width 18.2 % (11.5-14.5) Platelet Count 380 x10^3/uL (140-400) Sodium Level 139 mmol/L (136-145) Potassium Level 4.0 mmol/L (3.5-5.1) Chloride Level 100 mmol/L (98-107) Carbon Dioxide Level 39 mmol/L (21-32) Anion Gap 0 (6-14) Blood Urea Nitrogen 24 mg/dL (7-20) Creatinine 0.7 mg/dL (0.6-1.0) Estimated GFR (Cockcroft-Gault) 88.9 Glucose Level 118 mg/dL (70-99) Calcium Level 8.6 mg/dL (8.5-10.1) Phosphorus Level 3.0 mg/dL (2.6-4.7) Magnesium Level 1.9 mg/dL (1.8-2.4) Test 09/08/19 06:22 Glucose (Fingerstick) 122 mg/dL (70-99) Medications Active Scripts Medications Dose Route/Sig Max Daily Dose Days Date Category Bisoprolol Fumarate 5 Mg Tablet 10 Mg PO DAILY 07/04/19 Reported Comments CXR reviewed. Impression . IMPRESSION: 1. Acute hypoxemic respiratory failure secondary to ARDS status post trach, 2. Gallstone pancreatitis 3. Severe metabolic acidosis.stable 4. Acute kidney injury-stable, Off HD-- continue to improve 5. Acute gallstone pancreatitis. 6. Hypoalbuminemia. 7. Moderate persistent effusions, s/p left thora 08/29 8. Fever- Per ID, per surgery--resolved 9. Chronic anemia 10. Covid 19 testing negative 11. Moderate to large ascites-S/P paracentisis 12.S/P paracentisis with 4 liters removed on 08/03/19 13. S/P IR drain placement on 08/26/2019 Plan . I think she should go outdoors as often as possible to get some fresh air Continue the same Lasix 40 mg twice daily Patient placed on assist control last evening for respiratory distress s/p thoracentesis, 08/29, 3 litres removed cap trach as tolerated Follow surgery recs-- S/P 3 drain placed in IR on 08/26/2019 Follow ID recs for ABX Follow nephrology recs Continue TPN DVT/GI PPX: heparin SQ/ protonix D/W RN and RT, pt CODE:FULL HARMEET BEE MD September 08, 2019 11:22
[2019-09-08] MEDS: IV NORMAL SALINE 1000ML BAG 1,000 ML IV SCH (13:37)
--- NOTE | 2019-09-08 15:25 | PDOC ---
PROGRESS NOTES Chief Complaint Chief Complaint Acute hypoxic Respiratory failure requiring mechanical ventilation (now extubated for several days but still with tracheostomy) Tracheostomy bilateral pleural effusions/pulm edema Sepsis Severe Acute gallstone pancreatitis (not a surgical candidate at this time) with necrosis Acute kidney failure now requiring dialysis Salpingitis Gallstones (Calculus of gallbladder with acute cholecystitis without obstruction) HTN Leukocytosis Hypoxia Uterine fibroid Intractable pain Intractable nausea Covid 19 negative. Acute on chronic anemia EEG: No seizure activityFever - better currently - intermittent could be from underlying pancreatitis blood cults 08/21 - neg so far ? Ileus with vomiting Abd distention - U/S and CT reviewed s/p 0.4 L of opaque, debris-containing ascites was removed 08/23 Acute pancreatitis with persistent necrosis - 08/14 status post KAYLIN drain placement + C paropsilosis. s/p additional drains 08/25 Anemia - S/p PRBCs Cholelithiasis with thickening of the gallbladder wall. Leucocytosis improving JUANA, hyperkalemia, Metabolic acidosis off dialysis Acute hypoxic resp failure ,bilateral pleural effusion and atelectasis hypocalcemia Prediabetes HTN s/p trach ESRD on HD Hyperglycemia History of Present Illness History of Present Illness 09/07 stronger, better, we discussed better oral care she would like to try swallow study, wants to try to eat, speech is f ollowing 09/07/2019 She remains in the ICU sitting up and working with OT, getting better if limit pain meds, may do better off the vent, Nurses trying to suction her, that is also improved, Chart reviewed 09/06/2019 Patient seen and examined in the ICU She had an episode yesterday of tachycardia and severe agitation we gave her some Ativan After that she seemed to have stroke symptoms but now that the Ativan has wore off her stroke symptoms have resolved She is on IV meropenem and daptomycin and micafungin Chart reviewed Discussed with RN Patient is still critically ill BRIEF OPERATIVE NOTE Pre-Op Diagnosis Pancreatitis with pseudocysts, suspected infection Post-Op Diagnosis same Procedure Performed CT abdominal Drains x 3 Surgeon Tesfaye Anesthesia Type: Conscious Sedation Findings 3 abdominal drains, 14F, with turbid pancreatic fluid and necrotic debris in each. Complications No immediate 08/26: Patient today somewhat restless and having bilious secretions from ET tube, imaging studies ordered, discussed with customer support consultant. Pretty poor prognosis, hopefully is not a fistula, poor surgical candidate. 08/27: Imaging with no acute events, she seems more stable today compared to yesterday. Encouraged as much activity as possible patient at high risk for severe depression. Vitals Vitals Vital Signs Date Time Temp Pulse Resp B/P (MAP) Pulse Ox O2 Delivery O2 Flow Rate FiO2 09/08/19 14:00 94 18 148/86 (106) 96 Tracheal Collar 8.0 09/08/19 12:00 98.4 98.4 Physical Exam Physical Exam GENERAL: Severely encephalopathic trying to talk but has a lot of secretions and is confused HEENT: oral cavity dry, NGT NECK: Trach with speaking valve LUNGS: no rhonchi HEART: S1, S2, regular ABDOMEN: mod Distended, hypoactive BS, tender, + drainsx1 : Lind (08/01) EXTREMITIES: Generalized edema, improving, no cyanosis, SCDs bilaterally SKIN: Warm and dry. No generalized rash. 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 PICC(08/17) clean General: No acute distress Heart: Regular rate, Normal S1, Normal S2, No murmurs, Gallops Lungs: Wheezing, Other (decrease bs) Abdomen: Soft, Other (drains in place) Extremities: No clubbing, No cyanosis, No edema, Normal pulses, No tenderness/swelling Skin: Other (warm, dry) Labs LABS Laboratory Tests Test 09/07/19 16:28 09/08/19 00:44 09/08/19 06:10 09/08/19 06:22 Glucose (Fingerstick) 141 mg/dL (70-99) 165 mg/dL (70-99) 122 mg/dL (70-99) White Blood Count 8.3 x10^3/uL (4.0-11.0) Red Blood Count 2.72 x10^6/uL (3.50-5.40) Hemoglobin 7.8 g/dL (12.0-15.5) Hematocrit 23.8 % (36.0-47.0) Mean Corpuscular Volume 87 fL (79-100) Mean Corpuscular Hemoglobin 29 pg (25-35) Mean Corpuscular Hemoglobin Concent 33 g/dL (31-37) Red Cell Distribution Width 18.2 % (11.5-14.5) Platelet Count 380 x10^3/uL (140-400) Sodium Level 139 mmol/L (136-145) Potassium Level 4.0 mmol/L (3.5-5.1) Chloride Level 100 mmol/L (98-107) Carbon Dioxide Level 39 mmol/L (21-32) Anion Gap 0 (6-14) Blood Urea Nitrogen 24 mg/dL (7-20) Creatinine 0.7 mg/dL (0.6-1.0) Estimated GFR (Cockcroft-Gault) 88.9 Glucose Level 118 mg/dL (70-99) Calcium Level 8.6 mg/dL (8.5-10.1) Phosphorus Level 3.0 mg/dL (2.6-4.7) Magnesium Level 1.9 mg/dL (1.8-2.4) Test 09/08/19 12:06 Glucose (Fingerstick) 192 mg/dL (70-99) Assessment and Plan Assessmemt and Plan Problems Medical Problems: (1) Acute pancreatitis Status: Acute (2) Cholelithiasis Status: Acute Comment Review of Relevant I have reviewed the following items kolby (where applicable) has been applied. Labs Laboratory Tests Test 09/06/19 17:42 09/06/19 23:41 09/07/19 06:45 09/07/19 06:53 Glucose (Fingerstick) 122 mg/dL (70-99) 207 mg/dL (70-99) 146 mg/dL (70-99) Sodium Level 140 mmol/L (136-145) Potassium Level 3.9 mmol/L (3.5-5.1) Chloride Level 99 mmol/L (98-107) Carbon Dioxide Level 41 mmol/L (21-32) Anion Gap 0 (6-14) Blood Urea Nitrogen 30 mg/dL (7-20) Creatinine 0.7 mg/dL (0.6-1.0) Estimated GFR (Cockcroft-Gault) 88.9 Glucose Level 147 mg/dL (70-99) Calcium Level 8.8 mg/dL (8.5-10.1) Test 09/07/19 09:30 09/07/19 12:31 09/07/19 16:28 09/08/19 00:44 O2 Saturation 97 % (92-99) Arterial Blood pH 7.50 (7.35-7.45) Arterial Blood pCO2 at Patient Temp 54 mmHg (35-46) Arterial Blood pO2 at Patient Temp 106 mmHg (75-108) Arterial Blood HCO3 41 mmol/L (21-28) Arterial Blood Base Excess 16 mmol/L (-3-3) FiO2 30% trial Glucose (Fingerstick) 258 mg/dL (70-99) 141 mg/dL (70-99) 165 mg/dL (70-99) Test 09/08/19 06:10 09/08/19 06:22 09/08/19 12:06 White Blood Count 8.3 x10^3/uL (4.0-11.0) Red Blood Count 2.72 x10^6/uL (3.50-5.40) Hemoglobin 7.8 g/dL (12.0-15.5) Hematocrit 23.8 % (36.0-47.0) Mean Corpuscular Volume 87 fL (79-100) Mean Corpuscular Hemoglobin 29 pg (25-35) Mean Corpuscular Hemoglobin Concent 33 g/dL (31-37) Red Cell Distribution Width 18.2 % (11.5-14.5) Platelet Count 380 x10^3/uL (140-400) Sodium Level 139 mmol/L (136-145) Potassium Level 4.0 mmol/L (3.5-5.1) Chloride Level 100 mmol/L (98-107) Carbon Dioxide Level 39 mmol/L (21-32) Anion Gap 0 (6-14) Blood Urea Nitrogen 24 mg/dL (7-20) Creatinine 0.7 mg/dL (0.6-1.0) Estimated GFR (Cockcroft-Gault) 88.9 Glucose Level 118 mg/dL (70-99) Calcium Level 8.6 mg/dL (8.5-10.1) Phosphorus Level 3.0 mg/dL (2.6-4.7) Magnesium Level 1.9 mg/dL (1.8-2.4) Glucose (Fingerstick) 122 mg/dL (70-99) 192 mg/dL (70-99) Laboratory Tests Test 09/07/19 16:28 09/08/19 00:44 09/08/19 06:10 09/08/19 06:22 Glucose (Fingerstick) 141 mg/dL (70-99) 165 mg/dL (70-99) 122 mg/dL (70-99) White Blood Count 8.3 x10^3/uL (4.0-11.0) Red Blood Count 2.72 x10^6/uL (3.50-5.40) Hemoglobin 7.8 g/dL (12.0-15.5) Hematocrit 23.8 % (36.0-47.0) Mean Corpuscular Volume 87 fL (79-100) Mean Corpuscular Hemoglobin 29 pg (25-35) Mean Corpuscular Hemoglobin Concent 33 g/dL (31-37) Red Cell Distribution Width 18.2 % (11.5-14.5) Platelet Count 380 x10^3/uL (140-400) Sodium Level 139 mmol/L (136-145) Potassium Level 4.0 mmol/L (3.5-5.1) Chloride Level 100 mmol/L (98-107) Carbon Dioxide Level 39 mmol/L (21-32) Anion Gap 0 (6-14) Blood Urea Nitrogen 24 mg/dL (7-20) Creatinine 0.7 mg/dL (0.6-1.0) Estimated GFR (Cockcroft-Gault) 88.9 Glucose Level 118 mg/dL (70-99) Calcium Level 8.6 mg/dL (8.5-10.1) Phosphorus Level 3.0 mg/dL (2.6-4.7) Magnesium Level 1.9 mg/dL (1.8-2.4) Test 09/08/19 12:06 Glucose (Fingerstick) 192 mg/dL (70-99) Microbiology 09/04/19 Blood Culture - Preliminary, Resulted NO GROWTH AFTER 4 DAYS 08/24/19 Fungal Culture - Final, Complete 08/24/19 Fungal Culture Result 1 - Final, Complete 08/18/19 Aerobic Culture - Final, Complete 08/18/19 Aerobic Culture Result 1 (ALEXANDRA) - Final, Complete 08/18/19 Gram Stain - Final, Complete 08/18/19 Gram Stain Result 1 (ALEXANDRA) - Final, Complete 08/18/19 Gram Stain Result 2 (ALEXANDRA) - Final, Complete 07/31/19 Urine Culture - Final, Complete 07/31/19 Urine Culture Result 1 (ALEXANDRA) - Final, Complete Medications Current Medications Sodium Chloride 1,000 ml @ 1,000 mls/hr Q1H IV Last administered on 07/04/19at 03:00; Start 07/04/19 at 03:00; Stop 07/04/19 at 03:59; Status DC Ondansetron HCl (Zofran) 4 mg 1X ONCE IVP Last administered on 07/04/19at 03:27; Start 07/04/19 at 03:00; Stop 07/04/19 at 03:01; Status DC Morphine Sulfate (Morphine Sulfate) 4 mg 1X ONCE IV ; Start 07/04/19 at 03:00; Stop 07/04/19 at 03:01; Status Cancel Ketorolac Tromethamine (Toradol 30mg Vial) 30 mg 1X ONCE IV Last administered on 07/04/19at 02:54; Start 07/04/19 at 03:00; Stop 07/04/19 at 03:01; Status DC Fentanyl Citrate (Fentanyl 2ml Vial) 25 mcg 1X ONCE IVP Last administered on 07/04/19at 03:23; Start 07/04/19 at 03:30; Stop 07/04/19 at 03:31; Status DC Fentanyl Citrate (Fentanyl 2ml Vial) 100 mcg STK-MED ONCE .ROUTE ; Start 07/04/19 at 03:18; Stop 07/04/19 at 03:18; Status DC Iohexol (Omnipaque 350 Mg/ml) 90 ml 1X ONCE IV Last administered on 07/04/19at 03:25; Start 07/04/19 at 03:30; Stop 07/04/19 at 03:31; Status DC Info (CONTRAST GIVEN -- Rx MONITORING) 1 each PRN DAILY PRN MC SEE COMMENTS; Start 07/04/19 at 03:30; Stop 07/06/19 at 03:29; Status DC Hydromorphone HCl (Dilaudid) 0.5 mg 1X ONCE IV Last administered on 07/04/19at 03:55; Start 07/04/19 at 04:30; Stop 07/04/19 at 04:32; Status DC Ondansetron HCl (Zofran) 4 mg PRN Q8HRS PRN IV NAUSEA/VOMITING 1ST CHOICE; Start 07/04/19 at 05:00; Stop 07/04/19 at 09:27; Status DC Morphine Sulfate (Morphine Sulfate) 2 mg PRN Q2HR PRN IV SEVERE PAIN 7-10 Last administered on 07/05/19at 12:26; Start 07/04/19 at 05:00; Stop 07/05/19 at 14:15; Status DC Sodium Chloride 1,000 ml @ 125 mls/hr Q8H IV Last administered on 07/04/19at 20:56; Start 07/04/19 at 05:00; Stop 07/05/19 at 04:59; Status DC Hydromorphone HCl (Dilaudid) 0.5 mg PRN Q3HRS PRN IV SEVERE PAIN 7-10 Last administered on 07/05/19at 10:06; Start 07/04/19 at 05:00; Stop 07/05/19 at 12:01; Status DC Piperacillin Sod/ Tazobactam Sod 4.5 gm/Sodium Chloride 100 ml @ 200 mls/hr 1X ONCE IV Last administered on 07/04/19at 05:44; Start 07/04/19 at 06:00; Stop 07/04/19 at 06:29; Status DC Ondansetron HCl (Zofran) 4 mg PRN Q4HRS PRN IV NAUSEA/VOMITING 1ST CHOICE Last administered on 09/06/19at 12:40; Start 07/04/19 at 09:30 Insulin Human Lispro (HumaLOG) 0-9 UNITS Q6HRS SQ Last administered on 09/08/19at 12:11; Start 07/04/19 at 09:30 Dextrose (Dextrose 50%-Water Syringe) 12.5 gm PRN Q15MIN PRN IV SEE COMMENTS; Start 07/04/19 at 09:30 Pantoprazole Sodium (PROTONIX VIAL for IV PUSH) 40 mg DAILYAC IVP Last administered on 09/08/19at 08:22; Start 07/04/19 at 11:30 Prochlorperazine Edisylate (Compazine) 10 mg PRN Q6HRS PRN IV NAUSEA/VOMITING, 2nd CHOICE Last administered on 09/01/19at 06:11; Start 07/04/19 at 17:45 Atenolol (Tenormin) 100 mg DAILY PO ; Start 07/05/19 at 09:00; Stop 07/04/19 at 20:08; Status DC Metoprolol Tartrate (Lopressor Vial) 2.5 mg Q6HRS IVP Last administered on 07/05/19at 05:51; Start 07/04/19 at 20:15; Stop 07/05/19 at 10:02; Status DC Metoprolol Tartrate (Lopressor Vial) 5 mg Q6HRS IVP Last administered on 07/14/19at 00:12; Start 07/05/19 at 10:15; Stop 07/16/19 at 08:48; Status DC Hydromorphone HCl (Dilaudid) 1 mg PRN Q3HRS PRN IV SEVERE PAIN 7-10 Last admin istered on 07/11/19at 05:13; Start 07/05/19 at 12:00; Stop 07/19/19 at 00:25; Status DC Lidocaine HCl (Buffered Lidocaine 1%) 3 ml STK-MED ONCE .ROUTE ; Start 07/05/19 at 12:55; Stop 07/05/19 at 12:56; Status DC Albumin Human 500 ml @ 125 mls/hr 1X ONCE IV Last administered on 07/05/19at 14:33; Start 07/05/19 at 14:30; Stop 07/05/19 at 18:32; Status DC Norepinephrine Bitartrate 8 mg/ Dextrose 258 ml @ 17.299 mls/ hr CONT PRN IV PER PROTOCOL Last administered on 08/02/19at 12:48; Start 07/05/19 at 15:30; Stop 08/05/19 at 09:19; Status DC Sodium Chloride 1,000 ml @ 125 mls/hr Q8H IV Last administered on 07/05/19at 21:04; Start 07/05/19 at 16:00; Stop 07/06/19 at 02:42; Status DC Albumin Human 500 ml @ 125 mls/hr PRN BID PRN IV After every 2L NSS & BP < 90mm Last administered on 07/20/19at 14:21; Start 07/05/19 at 16:00 Iohexol (Omnipaque 300 Mg/ml) 60 ml 1X ONCE IV Last administered on 07/05/19at 17:20; Start 07/05/19 at 17:00; Stop 07/05/19 at 17:01; Status DC Info (CONTRAST GIVEN -- Rx MONITORING) 1 each PRN DAILY PRN MC SEE COMMENTS; Start 07/05/19 at 17:00; Stop 07/07/19 at 16:59; Status DC Meropenem 1 gm/ Sodium Chloride 100 ml @ 200 mls/hr Q8HRS IV Last administered on 07/06/19at 05:45; Start 07/05/19 at 20:00; Stop 07/06/19 at 08:48; Status DC Furosemide (Lasix) 40 mg 1X ONCE IVP Last administered on 07/05/19at 22:12; Start 07/05/19 at 22:30; Stop 07/05/19 at 22:31; Status DC Calcium Chloride 1000 mg/Sodium Chloride 110 ml @ 220 mls/hr 1X ONCE IV Last administered on 07/05/19at 22:11; Start 07/05/19 at 22:30; Stop 07/05/19 at 22:59; Status DC Albuterol Sulfate (Ventolin Neb Soln) 2.5 mg 1X ONCE NEB Last administered on 07/06/19at 00:56; Start 07/05/19 at 22:30; Stop 07/05/19 at 22:31; Status DC Insulin Human Regular (HumuLIN R VIAL) 5 unit 1X ONCE IV Last administered on 07/05/19at 22:14; Start 07/05/19 at 22:30; Stop 07/05/19 at 22:31; Status DC Magnesium Sulfate 50 ml @ 25 mls/hr 1X ONCE IV Last administered on 07/06/19at 02:57; Start 07/06/19 at 03:00; Stop 07/06/19 at 04:59; Status DC Calcium Gluconate 1000 mg/Sodium Chloride 110 ml @ 220 mls/hr 1X ONCE IV Last administered on 07/06/19at 02:46; Start 07/06/19 at 03:00; Stop 07/06/19 at 03:29; Status DC Sodium Chloride 1,000 ml @ 200 mls/hr Q5H IV Last administered on 07/06/19at 02:46; Start 07/06/19 at 03:00; Stop 07/06/19 at 10:21; Status DC Calcium Gluconate 1000 mg/Sodium Chloride 110 ml @ 220 mls/hr 1X ONCE IV Last administered on 07/06/19at 03:21; Start 07/06/19 at 03:30; Stop 07/06/19 at 03:59; Status DC Sodium Bicarbonate 50 meq/Sodium Chloride 1,050 ml @ 75 mls/hr Q14H IV Last administered on 07/10/19at 21:10; Start 07/06/19 at 07:30; Stop 07/11/19 at 10:28; Status DC Calcium Gluconate 2000 mg/Sodium Chloride 120 ml @ 220 mls/hr 1X ONCE IV Last administered on 07/06/19at 09:05; Start 07/06/19 at 07:30; Stop 07/06/19 at 08:02; Status DC Lidocaine HCl (Xylocaine-Mpf 1% 2ml Vial) 2 ml STK-MED ONCE .ROUTE ; Start 07/06/19 at 08:47; Stop 07/06/19 at 08:47; Status DC Meropenem 500 mg/ Sodium Chloride 50 ml @ 100 mls/hr Q12HR IV Last administered on 07/11/19at 21:01; Start 07/06/19 at 18:00; Stop 07/12/19 at 07:58; Status DC Lidocaine HCl (Buffered Lidocaine 1%) 3 ml STK-MED ONCE .ROUTE ; Start 07/06/19 at 09:46; Stop 07/06/19 at 09:46; Status DC Lidocaine HCl (Buffered Lidocaine 1%) 6 ml 1X ONCE INJ Last administered on 07/06/19at 10:26; Start 07/06/19 at 10:15; Stop 07/06/19 at 10:16; Status DC Info (Tpn Per Pharmacy) 1 each PRN DAILY PRN MC SEE COMMENTS Last administered on 09/08/19at 11:11; Start 07/06/19 at 12:00 Sodium Chloride 1,000 ml @ 1,000 mls/hr Q1H PRN IV hypotension; Start 07/06/19 at 12:07; Stop 07/06/19 at 18:06; Status DC Diphenhydramine HCl (Benadryl) 25 mg 1X PRN PRN IV ITCHING; Start 07/06/19 at 12:15; Stop 07/07/19 at 12:14; Status DC Diphenhydramine HCl (Benadryl) 25 mg 1X PRN PRN IV ITCHING; Start 07/06/19 at 12:15; Stop 07/07/19 at 12:14; Status DC Sodium Chloride 1,000 ml @ 400 mls/hr Q2H30M PRN IV PATENCY; Start 07/06/19 at 12:07; Stop 07/07/19 at 00:06; Status DC Info (PHARMACY MONITORING -- do not chart) 1 each PRN DAILY PRN MC SEE COMMENTS; Start 07/06/19 at 12:15; Stop 07/08/19 at 08:13; Status DC Sodium Chloride 90 meq/Calcium Gluconate 10 meq/ Multivitamins 10 ml/Chromium/ Copper/Manganese/ Seleni/Zn 1 ml/ Total Parenteral Nutrition/Amino Acids/Dextrose/ Fat Emulsion Intravenous 55.005 ml @ 2.292 mls/hr TPN CONT IV ; Start 07/06/19 at 22:00; Stop 07/06/19 at 12:33; Status DC Info (Tpn Per Pharmacy) 1 each PRN DAILY PRN MC SEE COMMENTS; Start 07/06/19 at 12:30; Status UNV Sodium Chloride 90 meq/Calcium Gluconate 10 meq/ Multivitamins 10 ml/Chromium/ Copper/Manganese/ Seleni/Zn 0.5 ml/ Total Parenteral Nutrition/Amino Acids/Dextrose/ Fat Emulsion Intravenous 1,512 ml @ 63 mls/hr TPN CONT IV Last administered on 07/06/19at 22:06; Start 07/06/19 at 22:00; Stop 07/07/19 at 21:59; Status DC Calcium Carbonate/ Glycine (Tums) 500 mg PRN AFTMEALHC PRN PO INDIGESTION; Start 07/06/19 at 17:45; Stop 08/31/19 at 10:25; Status DC Calcium Gluconate (Calcium Gluconate) 2,000 mg 1X ONCE IVP Last administered on 07/07/19at 02:19; Start 07/07/19 at 02:15; Stop 07/07/19 at 02:16; Status DC Calcium Chloride 3000 mg/Sodium Chloride 1,030 ml @ 50 mls/hr [id number] IV Last administered on 07/09/19at 02:17; Start 07/07/19 at 08:00; Stop 07/09/19 at 15:23; Status DC Lorazepam (Ativan Inj) 1 mg PRN Q4HRS PRN IVP ANXIETY / AGITATION, 2nd choic Last administered on 08/05/19at 03:51; Start 07/07/19 at 09:00; Stop 08/05/19 at 09:19; Status DC Sodium Chloride 1,000 ml @ 1,000 mls/hr Q1H PRN IV hypotension; Start 07/07/19 at 08:56; Stop 07/07/19 at 14:55; Status DC Albumin Human 200 ml @ 200 mls/hr 1X PRN PRN IV Hypotension; Start 07/07/19 at 09:00; Stop 07/07/19 at 14:59; Status DC Diphenhydramine HCl (Benadryl) 25 mg 1X PRN PRN IV ITCHING; Start 07/07/19 at 09:00; Stop 07/08/19 at 08:59; Status DC Diphenhydramine HCl (Benadryl) 25 mg 1X PRN PRN IV ITCHING; Start 07/07/19 at 09:00; Stop 07/08/19 at 08:59; Status DC Sodium Chloride 1,000 ml @ 400 mls/hr Q2H30M PRN IV PATENCY; Start 07/07/19 at 08:56; Stop 07/07/19 at 20:55; Status DC Info (PHARMACY MONITORING -- do not chart) 1 each PRN DAILY PRN MC SEE COMMENTS; Start 07/07/19 at 09:00; Status UNV Info (PHARMACY MONITORING -- do not chart) 1 each PRN DAILY PRN MC SEE COMMENTS; Start 07/07/19 at 09:00; Stop 07/08/19 at 08:13; Status DC Digoxin (Lanoxin) 500 mcg 1X ONCE IV Last administered on 07/07/19at 10:04; Start 07/07/19 at 10:00; Stop 07/07/19 at 10:01; Status DC Digoxin (Lanoxin) 125 mcg 1X ONCE IV Last administered on 07/07/19at 17:10; Start 07/07/19 at 18:00; Stop 07/07/19 at 18:01; Status DC Magnesium Sulfate 100 ml @ 25 mls/hr 1X ONCE IV Last administered on 07/07/19at 12:48; Start 07/07/19 at 13:00; Stop 07/07/19 at 16:59; Status DC Sodium Chloride 90 meq/Magnesium Sulfate 10 meq/ Calcium Gluconate 20 meq/ Multivitamins 10 ml/Chromium/ Copper/Manganese/ Seleni/Zn 0.5 ml/ Total Parenteral Nutrition/Amino Acids/Dextrose/ Fat Emulsion Intravenous 1,512 ml @ 63 mls/hr TPN CONT IV Last administered on 07/07/19at 22:25; Start 07/07/19 at 22:00; Stop 07/08/19 at 21:59; Status DC Sodium Chloride 1,000 ml @ 1,000 mls/hr Q1H PRN IV hypotension; Start 07/08/19 at 08:05; Stop 07/08/19 at 14:04; Status DC Albumin Human 200 ml @ 200 mls/hr 1X ONCE IV Last administered on 07/08/19at 08:57; Start 07/08/19 at 08:15; Stop 07/08/19 at 09:14; Status DC Diphenhydramine HCl (Benadryl) 25 mg 1X PRN PRN IV ITCHING; Start 07/08/19 at 08:15; Stop 07/09/19 at 08:14; Status DC Diphenhydramine HCl (Benadryl) 25 mg 1X PRN PRN IV ITCHING; Start 07/08/19 at 08:15; Stop 07/09/19 at 08:14; Status DC Sodium Chloride 1,000 ml @ 400 mls/hr Q2H30M PRN IV PATENCY; Start 07/08/19 at 08:05; Stop 07/08/19 at 20:04; Status DC Info (PHARMACY MONITORING -- do not chart) 1 each PRN DAILY PRN MC SEE COMMENTS; Start 07/08/19 at 08:15; Stop 07/12/19 at 07:57; Status DC Sodium Chloride 90 meq/Potassium Chloride 15 meq/ Potassium Phosphate 10 mmol/ Magnesium Sulfate 10 meq/Calcium Gluconate 20 meq/ Multivitamins 10 ml/Chromium/ Copper/Manganese/ Seleni/Zn 0.5 ml/ Total Parenteral Nutrition/Amino Acids/Dextrose/ Fat Emulsion Intravenous 1,512 ml @ 63 mls/hr TPN CONT IV Last administered on 07/08/19at 21:01; Start 07/08/19 at 22:00; Stop 07/09/19 at 21:59; Status DC Potassium Chloride/Water 100 ml @ 100 mls/hr 1X ONCE IV Last administered on 07/08/19at 14:09; Start 07/08/19 at 14:00; Stop 07/08/19 at 14:59; Status DC Benzocaine (Hurricaine One) 1 spray 1X ONCE MM Last administered on 07/08/19at 16:38; Start 07/08/19 at 14:30; Stop 07/08/19 at 14:31; Status DC Lidocaine HCl (Glydo (Lidocaine) Jelly) 1 ramu 1X ONCE MM Last administered on 07/08/19at 16:38; Start 07/08/19 at 14:30; Stop 07/08/19 at 14:31; Status DC Linezolid/Dextrose 300 ml @ 300 mls/hr Q12HR IV Last administered on 07/14/19at 21:04; Start 07/08/19 at 20:00; Stop 07/15/19 at 07:50; Status DC Acetaminophen (Tylenol) 650 mg PRN Q6HRS PRN PO MILD PAIN / TEMP; Start 0 at 03:30; Stop 07/09/19 at 03:36; Status DC Acetaminophen (Tylenol) 650 mg PRN Q6HRS PRN PEG MILD PAIN / TEMP Last administered on 08/04/19at 19:56; Start 07/09/19 at 03:36; Stop 08/31/19 at 10:25; Status DC Sodium Chloride 1,000 ml @ 1,000 mls/hr Q1H PRN IV hypotension; Start 07/09/19 at 07:50; Stop 07/09/19 at 13:49; Status DC Albumin Human 200 ml @ 200 mls/hr 1X PRN PRN IV Hypotension; Start 07/09/19 at 08:00; Stop 07/09/19 at 13:59; Status DC Sodium Chloride (Normal Saline Flush) 10 ml 1X PRN PRN IV AP catheter pack; Start 07/09/19 at 08:00; Stop 07/10/19 at 07:59; Status DC Sodium Chloride (Normal Saline Flush) 10 ml 1X PRN PRN IV [employer] 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 catheter pack; Start 07/09/19 at 08:00; Stop 07/10/19 at 07:59; Status DC Sodium Chloride 1,000 ml @ 400 mls/hr Q2H30M PRN IV PATENCY; Start 07/09/19 at 07:50; Stop 07/09/19 at 19:49; Status DC Info (PHARMACY MONITORING -- do not chart) 1 each PRN DAILY PRN MC SEE COMMENTS; Start 07/09/19 at 08:00; Status UNV Info (PHARMACY MONITORING -- do not chart) 1 each PRN DAILY PRN MC SEE COMMENTS; Start 07/09/19 at 08:00; Stop 07/11/19 at 08:25; Status DC Sodium Chloride 90 meq/Potassium Chloride 15 meq/ Potassium Phosphate 10 mmol/ Magnesium Sulfate 10 meq/Calcium Gluconate 20 meq/ Multivitamins 10 ml/Chromium/ Copper/Manganese/ Seleni/Zn 0.5 ml/ Total Parenteral Nutrition/Amino Acids/Dextrose/ Fat Emulsion Intravenous 1,512 ml @ 63 mls/hr TPN CONT IV Last administered on 07/09/19at 20:57; Start 07/09/19 at 22:00; Stop 07/10/19 at 21:59; Status DC Sodium Chloride 90 meq/Potassium Chloride 15 meq/ Potassium Phosphate 15 mmol/ Magnesium Sulfate 10 meq/Calcium Gluconate 20 meq/ Multivitamins 10 ml/Chromium/ Copper/Manganese/ Seleni/Zn 0.5 ml/ Total Parenteral Nutrition/Amino Acids/Dextrose/ Fat Emulsion Intravenous 1,512 ml @ 63 mls/hr TPN CONT IV ; Start 07/10/19 at 22:00; Stop 07/10/19 at 14:16; Status DC Sodium Chloride 90 meq/Potassium Chloride 15 meq/ Potassium Phosphate 15 mmol/ Magnesium Sulfate 10 meq/Calcium Gluconate 20 meq/ Multivitamins 10 ml/Chromium/ Copper/Manganese/ Seleni/Zn 0.5 ml/ Total Parenteral Nutrition/Amino Acids/Dextrose/ Fat Emulsion Intravenous 1,200 ml @ 50 mls/hr TPN CONT IV ; Start 07/10/19 at 22:00; Stop 07/10/19 at 14:17; Status DC Sodium Chloride 90 meq/Potassium Chloride 15 meq/ Potassium Phosphate 10 mmol/ Magnesium Sulfate 10 meq/Calcium Gluconate 20 meq/ Multivitamins 10 ml/Chromium/ Copper/Manganese/ Seleni/Zn 0.5 ml/ Total Parenteral Nutrition/Amino Acids/Dextrose/ Fat Emulsion Intravenous 1,200 ml @ 50 mls/hr TPN CONT IV Last administered on 07/10/19at 23:29; Start 07/10/19 at 22:00; Stop 07/11/19 at 21:59; Status DC Sodium Chloride 1,000 ml @ 1,000 mls/hr Q1H PRN IV hypotension; Start 07/11/19 at 07:28; Stop 07/11/19 at 13:27; Status DC Albumin Human 200 ml @ 200 mls/hr 1X ONCE IV Last administered on 07/11/19at 08:51; Start 07/11/19 at 07:30; Stop 07/11/19 at 08:29; Status DC Diphenhydramine HCl (Benadryl) 25 mg 1X PRN PRN IV ITCHING; Start 07/11/19 at 07:30; Stop 07/12/19 at 07:29; Status DC Diphenhydramine HCl (Benadryl) 25 mg 1X PRN PRN IV ITCHING; Start 07/11/19 at 07:30; Stop 07/12/19 at 07:29; Status DC Sodium Chloride 1,000 ml @ 400 mls/hr Q2H30M PRN IV PATENCY; Start 07/11/19 at 07:28; Stop 07/11/19 at 19:27; Status DC Info (PHARMACY MONITORING -- do not chart) 1 each PRN DAILY PRN MC SEE COMMENTS; Start 07/11/19 at 07:30; Stop 07/22/19 at 13:01; Status DC Metronidazole 100 ml @ 100 mls/hr Q6HRS IV Last administered on 07/27/19at 06:26; Start 07/11/19 at 08:30; Stop 07/27/19 at 09:58; Status DC Micafungin Sodium 100 mg/Dextrose 100 ml @ 100 mls/hr Q24H IV Last administered on 08/18/19at 08:18; Start 07/11/19 at 09:00; Stop 08/18/19 at 20:58; Status DC Propofol 0 ml @ As Directed STK-MED ONCE IV ; Start 07/11/19 at 07:53; Stop 07/11/19 at 07:53; Status DC Etomidate (Amidate) 20 mg STK-MED ONCE IV ; Start 07/11/19 at 07:53; Stop 07/11/19 at 07:54; Status DC Midazolam HCl (Versed) 5 mg STK-MED ONCE .ROUTE ; Start 07/11/19 at 07:57; Stop 07/11/19 at 07:57; Status DC Fentanyl Citrate 30 ml @ 0 mls/hr CONT PRN IV SEE PROTOCOL Last administered on 08/05/19at 06:12; Start 07/11/19 at 08:15; Stop 08/05/19 at 09:19; Status DC Artificial Tears (Artificial Tears) 1 drop PRN Q1HR PRN OU DRY EYE, 1st choice; Start 07/11/19 at 08:15; Stop 08/17/19 at 05:31; Status DC Midazolam HCl 50 mg/Sodium Chloride 50 ml @ 0 mls/hr CONT PRN IV SEE PROTOCOL Last administered on 07/14/19at 22:39; Start 07/11/19 at 08:15; Stop 07/16/19 at 15:59; Status DC Etomidate (Amidate) 8 mg 1X ONCE IV Last administered on 07/11/19at 08:33; Start 07/11/19 at 08:30; Stop 07/11/19 at 08:31; Status DC Succinylcholine Chloride (Anectine) 120 mg 1X ONCE IV Last administered on 07/11/19at 08:34; Start 07/11/19 at 08:30; Stop 07/11/19 at 08:31; Status DC Midazolam HCl (Versed) 5 mg 1X ONCE IV ; Start 07/11/19 at 08:30; Stop 07/11/19 at 08:31; Status DC Potassium Chloride 15 meq/ Bicarbonate Dialysis Soln w/ out KCl 5,007.5 ml @ 1,000 mls/ hr Q5H1M IV Last administered on 07/12/19at 11:11; Start 07/11/19 at 12:00; Stop 07/12/19 at 11:15; Status DC Potassium Chloride 15 meq/ Bicarbonate Dialysis Soln w/ out KCl 5,007.5 ml @ 1,000 mls/ hr Q5H1M IV Last administered on 07/12/19at 11:12; Start 07/11/19 at 12:00; Stop 07/12/19 at 11:17; Status DC Potassium Chloride 15 meq/ Bicarbonate Dialysis Soln w/ out KCl 5,007.5 ml @ 1,000 mls/ hr Q5H1M IV Last administered on 07/12/19at 11:11; Start 07/11/19 at 12:00; Stop 07/12/19 at 11:19; Status DC Sodium Chloride 90 meq/Potassium Chloride 15 meq/ Potassium Phosphate 10 mmol/ Magnesium Sulfate 10 meq/Calcium Gluconate 20 meq/ Multivitamins 10 ml/Chromium/ Copper/Manganese/ Seleni/Zn 0.5 ml/ Total Parenteral Nutrition/Amino Acids /Dextrose/ Fat Emulsion Intravenous 1,400 ml @ 58.333 mls/ hr TPN CONT IV Last administered on 07/11/19at 21:42; Start 07/11/19 at 22:00; Stop 07/12/19 at 21:59; Status DC Heparin Sodium (Porcine) (Heparin Sodium) 5,000 unit Q8HRS SQ Last administered on 07/16/19at 05:55; Start 07/11/19 at 15:00; Stop 07/16/19 at 13:28; Status DC Meropenem 500 mg/ Sodium Chloride 50 ml @ 100 mls/hr Q6HRS IV Last administered on 07/13/19at 06:00; Start 07/12/19 at 09:00; Stop 07/13/19 at 07:29; Status DC Potassium Phosphate 20 mmol/ Sodium Chloride 106.6667 ml @ 51.667 m... 1X ONCE IV Last administered on 07/12/19at 11:22; Start 07/12/19 at 10:15; Stop 07/12/19 at 12:18; Status DC Acetaminophen (Tylenol Supp) 650 mg PRN Q6HRS PRN VA MILD PAIN / TEMP > 100.3'F Last administered on 08/23/19at 09:12; Start 07/12/19 at 10:30 Potassium Chloride/Water 100 ml @ 100 mls/hr Q1H IV Last administered on 07/12/19at 12:12; Start 07/12/19 at 11:00; Stop 07/12/19 at 12:59; Status DC Potassium Chloride 20 meq/ Bicarbonate Dialysis Soln w/ out KCl 5,010 ml @ 1,000 mls/hr Q5H1M IV Last administered on 07/13/19at 08:48; Start 07/12/19 at 12:00; Stop 07/13/19 at 13:03; Status DC Potassium Chloride 20 meq/ Bicarbonate Dialysis Soln w/ out KCl 5,010 ml @ 1,000 mls/hr Q5H1M IV Last administered on 07/17/19at 14:52; Start 07/12/19 at 11:30; Stop 07/17/19 at 19:59; Status DC Potassium Chloride 20 meq/ Bicarbonate Dialysis Soln w/ out KCl 5,010 ml @ 1,000 mls/hr Q5H1M IV Last administered on 07/17/19at 14:53; Start 07/12/19 at 11:30; Stop 07/17/19 at 19:59; Status DC Sodium Chloride 90 meq/Potassium Chloride 15 meq/ Potassium Phosphate 15 mmol/ Magnesium Sulfate 10 meq/Calcium Gluconate 15 meq/ Multivitamins 10 ml/Chromium/ Copper/Manganese/ Seleni/Zn 0.5 ml/ Total Parenteral Nutrition/Amino Acids/Dextrose/ Fat Emulsion Intravenous 1,400 ml @ 58.333 mls/ hr TPN CONT IV Last administered on 07/12/19at 22:17; Start 07/12/19 at 22:00; Stop 07/13/19 at 21:59; Status DC Cefepime HCl (Maxipime) 2 gm Q12HR IVP Last administered on 07/26/19at 20:56; Start 07/13/19 at 09:00; Stop 07/27/19 at 09:58; Status DC Daptomycin 500 mg/ Sodium Chloride 50 ml @ 100 mls/hr Q48H IV Last administered on 07/29/19at 09:57; Start 07/13/19 at 08:30; Stop 07/29/19 at 10:07; Status DC Lidocaine HCl (Buffered Lidocaine 1%) 3 ml 1X ONCE INJ Last administered on 07/13/19at 10:27; Start 07/13/19 at 10:30; Stop 07/13/19 at 10:31; Status DC Potassium Phosphate 20 mmol/ Sodium Chloride 106.6667 ml @ 51.667 m... 1X ONCE IV Last administered on 07/13/19at 12:51; Start 07/13/19 at 13:00; Stop 07/13/19 at 15:03; Status DC Sodium Chloride 90 meq/Potassium Chloride 15 meq/ Potassium Phosphate 18 mmol/ Magnesium Sulfate 8 meq/Calcium Gluconate 15 meq/ Multivitamins 10 ml/Chromium/ Copper/Manganese/ Seleni/Zn 0.5 ml/ Total Parenteral Nutrition/Amino Acids/Dextrose/ Fat Emulsion Intravenous 1,400 ml @ 58.333 mls/ hr TPN CONT IV Last administered on 07/13/19at 22:16; Start 07/13/19 at 22:00; Stop 07/14/19 at 21:59; Status DC Potassium Chloride 20 meq/ Bicarbonate Dialysis Soln w/ out KCl 5,010 ml @ 1,000 mls/hr Q5H1M IV Last administered on 07/17/19at 14:54; Start 07/13/19 at 16:00; Stop 07/17/19 at 19:59; Status DC Multi-Ingred Cream/Lotion/Oil/ Oint (Artificial Tears Eye Ointment) 1 ramu PRN Q1HR PRN OU DRY EYE, 2nd choice Last administered on 08/01/19at 08:19; Start 07/13/19 at 17:30 Sodium Chloride 90 meq/Potassium Chloride 15 meq/ Potassium Phosphate 18 mmol/ Magnesium Sulfate 8 meq/Calcium Gluconate 15 meq/ Multivitamins 10 ml/Chromium/ Copper/Manganese/ Seleni/Zn 0.5 ml/ Total Parenteral Nutrition/Amino Acids/Dextrose/ Fat Emulsion Intravenous 1,400 ml @ 58.333 mls/ hr TPN CONT IV Last administered on 07/14/19at 22:00; Start 07/14/19 at 22:00; Stop 07/15/19 at 21:59; Status DC Albumin Human 500 ml @ 125 mls/hr 1X ONCE IV ; Start 07/14/19 at 14:15; Stop 07/14/19 at 18:14; Status DC Sodium Chloride 90 meq/Potassium Chloride 15 meq/ Potassium Phosphate 18 mmol/ Magnesium Sulfate 8 meq/Calcium Gluconate 15 meq/ Multivitamins 10 ml/Chromium/ Copper/Manganese/ Seleni/Zn 0.5 ml/ Insulin Human Regular 10 unit/ Total Parenteral Nutrition/Amino Acids/Dextrose/ Fat Emulsion Intravenous 1,400 ml @ 58.333 mls/ hr TPN CONT IV Last administered on 07/15/19at 21:43; Start 07/15/19 at 22:00; Stop 07/16/19 at 21:59; Status DC Lidocaine HCl (Buffered Lidocaine 1%) 3 ml STK-MED ONCE .ROUTE ; Start 07/13/19 at 10:00; Stop 07/15/19 at 13:57; Status DC Midazolam HCl 100 mg/Sodium Chloride 100 ml @ 7 mls/hr CONT PRN IV SEE PROTOCOL Last administered on 07/27/19at 15:35; Start 07/16/19 at 16:00 Sodium Chloride 90 meq/Potassium Chloride 15 meq/ Potassium Phosphate 18 mmol/ Magnesium Sulfate 8 meq/Calcium Gluconate 15 meq/ Multivitamins 10 ml/Chromium/ Copper/Manganese/ Seleni/Zn 0.5 ml/ Insulin Human Regular 15 unit/ Total Parenteral Nutrition/Amino Acids/Dextrose/ Fat Emulsion Intravenous 1,400 ml @ 58.333 mls/ hr TPN CONT IV Last administered on 07/16/19at 20:34; Start 07/16/19 at 22:00; Stop 07/17/19 at 21:59; Status DC Info (Icu Electrolyte Protocol) 1 ea CONT PRN PRN MC PER PROTOCOL; Start 07/17/19 at 13:15 Sodium Chloride 90 meq/Potassium Chloride 15 meq/ Potassium Phosphate 18 mmol/ Magnesium Sulfate 8 meq/Calcium Gluconate 15 meq/ Multivitamins 10 ml/Chromium/ Copper/Manganese/ Seleni/Zn 0.5 ml/ Insulin Human Regular 15 unit/ Total P arenteral Nutrition/Amino Acids/Dextrose/ Fat Emulsion Intravenous 1,400 ml @ 58.333 mls/ hr TPN CONT IV Last administered on 07/17/19at 22:05; Start 07/17/19 at 22:00; Stop 07/18/19 at 21:59; Status DC Potassium Chloride 15 meq/ Bicarbonate Dialysis Soln w/ out KCl 5,007.5 ml @ 1,000 mls/ hr Q5H1M IV Last administered on 07/20/19at 18:14; Start 07/17/19 at 20:00; Stop 07/21/19 at 13:08; Status DC Potassium Chloride 15 meq/ Bicarbonate Dialysis Soln w/ out KCl 5,007.5 ml @ 1,000 mls/ hr Q5H1M IV Last administered on 07/20/19at 18:14; Start 07/17/19 at 20:00; Stop 07/21/19 at 13:08; Status DC Potassium Chloride 15 meq/ Bicarbonate Dialysis Soln w/ out KCl 5,007.5 ml @ 1,000 mls/ hr Q5H1M IV Last administered on 07/20/19at 18:14; Start 07/17/19 at 20:00; Stop 07/21/19 at 13:08; Status DC Iohexol (Omnipaque 240 Mg/ml) 30 ml 1X ONCE PO Last administered on 07/18/19at 11:30; Start 07/18/19 at 11:30; Stop 07/18/19 at 11:33; Status DC Info (CONTRAST GIVEN -- Rx MONITORING) 1 each PRN DAILY PRN MC SEE COMMENTS; Start 07/18/19 at 11:45; Stop 07/20/19 at 11:44; Status DC Sodium Chloride 90 meq/Potassium Chloride 15 meq/ Potassium Phosphate 18 mmol/ Magnesium Sulfate 8 meq/Calcium Gluconate 15 meq/ Multivitamins 10 ml/Chromium/ Copper/Manganese/ Seleni/Zn 0.5 ml/ Insulin Human Regular 15 unit/ Total Parenteral Nutrition/Amino Acids/Dextrose/ Fat Emulsion Intravenous 1,400 ml @ 58.333 mls/ hr TPN CONT IV Last administered on 07/18/19at 21:47; Start 07/18/19 at 22:00; Stop 07/19/19 at 21:59; Status DC Sodium Chloride 90 meq/Potassium Chloride 15 meq/ Potassium Phosphate 18 mmol/ Magnesium Sulfate 8 meq/Calcium Gluconate 15 meq/ Multivitamins 10 ml/Chromium/ Copper/Manganese/ Seleni/Zn 0.5 ml/ Insulin Human Regular 20 unit/ Total Parenteral Nutrition/Amino Acids/Dextrose/ Fat Emulsion Intravenous 1,400 ml @ 58.333 mls/ hr TPN CONT IV Last administered on 07/19/19at 21:36; Start 07/19/19 at 22:00; Stop 07/20/19 at 21:59; Status DC Alteplase, Recombinant (Cathflo For Central Catheter Clearance) 1 mg 1X ONCE INT CAT Last administered on 07/19/19at 20:03; Start 07/19/19 at 19:30; Stop 07/19/19 at 19:46; Status DC Alteplase, Recombinant (Cathflo For Central Catheter Clearance) 1 mg 1X ONCE INT CAT Last administered on 07/19/19at 22:05; Start 07/19/19 at 22:00; Stop at 22:01; Status DC Sodium Chloride 90 meq/Potassium Chloride 15 meq/ Potassium Phosphate 18 mmol/ Magnesium Sulfate 8 meq/Calcium Gluconate 15 meq/ Multivitamins 10 ml/Chromium/ Copper/Manganese/ Seleni/Zn 0.5 ml/ Insulin Human Regular 20 unit/ Total Parenteral Nutrition/Amino Acids/Dextrose/ Fat Emulsion Intravenous 1,400 ml @ 58.333 mls/ hr TPN CONT IV Last administered on 07/20/19at 21:30; Start 07/20/19 at 22:00; Stop 07/21/19 at 21:59; Status DC Dexmedetomidine HCl 400 mcg/ Sodium Chloride 100 ml @ 0 mls/hr CONT PRN IV ANXIETY / AGITATION Last administered on 09/08/19at 13:18; Start 07/21/19 at 08:15 Sodium Chloride 500 ml @ 500 mls/hr 1X PRN PRN IV ELEVATED BP, SEE COMMENTS; Start 07/21/19 at 08:15 Atropine Sulfate (ATROPINE 0.5mg SYRINGE) 0.5 mg PRN Q5MIN PRN IV SEE COMMENTS; Start 07/21/19 at 08:15 Furosemide (Lasix) 20 mg 1X ONCE IVP Last administered on 07/21/19at 08:19; Start 07/21/19 at 08:15; Stop 07/21/19 at 08:16; Status DC Lidocaine HCl (Buffered Lidocaine 1%) 3 ml STK-MED ONCE .ROUTE ; Start 07/21/19 at 08:39; Stop 07/21/19 at 08:39; Status DC Lidocaine HCl (Buffered Lidocaine 1%) 6 ml 1X ONCE INJ Last administered on 07/21/19at 09:05; Start 07/21/19 at 09:00; Stop 07/21/19 at 09:06; Status DC Sodium Chloride 90 meq/Potassium Chloride 15 meq/ Potassium Phosphate 18 mmol/ Magnesium Sulfate 8 meq/Calcium Gluconate 15 meq/ Multivitamins 10 ml/Chromium/ Copper/Manganese/ Seleni/Zn 0.5 ml/ Insulin Human Regular 20 unit/ Total Parenteral Nutrition/Amino Acids/Dextrose/ Fat Emulsion Intravenous 1,400 ml @ 58.333 mls/ hr TPN CONT IV Last administered on 07/21/19at 22:45; Start 07/21/19 at 22:00; Stop 07/22/19 at 21:59; Status DC Sodium Chloride 1,000 ml @ 1,000 mls/hr Q1H PRN IV hypotension; Start 07/22/19 at 07:30; Stop 07/22/19 at 13:29; Status DC Albumin Human 200 ml @ 200 mls/hr 1X PRN PRN IV Hypotension Last administered on 07/22/19at 09:36; Start 07/22/19 at 07:30; Stop 07/22/19 at 13:29; Status DC Sodium Chloride (Normal Saline Flush) 10 ml 1X PRN PRN IV AP catheter pack; Start 07/22/19 at 07:30; Stop 07/22/19 at 21:29; Status DC Sodium Chloride (Normal Saline Flush) 10 ml 1X PRN PRN IV 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 catheter pack; Start 07/22/19 at 07:30; Stop 07/23/19 at 07:29; Status DC Sodium Chloride 1,000 ml @ 400 mls/hr Q2H30M PRN IV PATENCY; Start 07/22/19 at 07:30; Stop 07/22/19 at 19:29; Status DC Info (PHARMACY MONITORING -- do not chart) 1 each PRN DAILY PRN MC SEE COMMENTS; Start 07/22/19 at 07:30; Stop 07/22/19 at 13:02; Status DC Info (PHARMACY MONITORING -- do not chart) 1 each PRN DAILY PRN MC SEE COMMENT S; Start 07/22/19 at 07:30; Stop 07/24/19 at 12:45; Status DC Sodium Chloride 90 meq/Potassium Chloride 15 meq/ Potassium Phosphate 10 mmol/ Magnesium Sulfate 8 meq/Calcium Gluconate 15 meq/ Multivitamins 10 ml/Chromium/ Copper/Manganese/ Seleni/Zn 0.5 ml/ Insulin Human Regular 25 unit/ Total Parenteral Nutrition/Amino Acids/Dextrose/ Fat Emulsion Intravenous 1,400 ml @ 58.333 mls/ hr TPN CONT IV Last administered on 07/22/19at 22:19; Start 07/22/19 at 22:00; Stop 07/23/19 at 21:59; Status DC Heparin Sodium (Porcine) (Heparin Sodium) 5,000 unit Q12HR SQ Last administered on 08/14/19at 08:59; Start 07/22/19 at 21:00; Stop 08/14/19 at 10:05; Status DC Ondansetron HCl (Zofran) 4 mg PRN Q6HRS PRN IV NAUSEA/VOMITING; Start 07/25/19 at 07:00; Stop 07/26/19 at 06:59; Status DC Fentanyl Citrate (Fentanyl 2ml Vial) 25 mcg PRN Q5MIN PRN IV MILD PAIN 1-3; Start 07/25/19 at 07:00; Stop 07/26/19 at 06:59; Status DC Fentanyl Citrate (Fentanyl 2ml Vial) 50 mcg PRN Q5MIN PRN IV MODERATE TO SEVERE PAIN; Start 07/25/19 at 07:00; Stop 07/26/19 at 06:59; Status DC Ringer's Solution 1,000 ml @ 30 mls/hr Q24H IV ; Start 07/25/19 at 07:00; Stop 07/25/19 at 18:59; Status DC Lidocaine HCl (Xylocaine-Mpf 1% 2ml Vial) 2 ml PRN 1X PRN ID PRIOR TO IV START; Start 07/25/19 at 07:00; Stop 07/26/19 at 06:59; Status DC Prochlorperazine Edisylate (Compazine) 5 mg PACU PRN PRN IV NAUSEA, MRX1; Start 07/25/19 at 07:00; Stop 07/26/19 at 06:59; Status DC Sodium Chloride 1,000 ml @ 1,000 mls/hr Q1H PRN IV hypotension; Start 07/23/19 at 09:10; Stop 07/23/19 at 15:09; Status DC Albumin Human 200 ml @ 200 mls/hr 1X PRN PRN IV Hypotension Last administered on 07/23/19at 10:10; Start 07/23/19 at 09:15; Stop 07/23/19 at 15:14; Status DC Sodium Chloride 1,000 ml @ 400 mls/hr Q2H30M PRN IV PATENCY; Start 07/23/19 at 09:10; Stop 07/23/19 at 21:09; Status DC Info (PHARMACY MONITORING -- do not chart) 1 each PRN DAILY PRN MC SEE COMMENTS ; Start 07/23/19 at 09:15; Stop 07/24/19 at 12:45; Status DC Info (PHARMACY MONITORING -- do not chart) 1 each PRN DAILY PRN MC SEE COMMENTS; Start 07/23/19 at 09:15; Stop 07/24/19 at 12:45; Status DC Sodium Chloride 90 meq/Potassium Chloride 15 meq/ Potassium Phosphate 10 mmol/ Magnesium Sulfate 8 meq/Calcium Gluconate 15 meq/ Multivitamins 10 ml/Chromium/ Copper/Manganese/ Seleni/Zn 0.5 ml/ Insulin Human Regular 25 unit/ Total Parenteral Nutrition/Amino Acids/Dextrose/ Fat Emulsion Intravenous 1,400 ml @ 58.333 mls/ hr TPN CONT IV Last administered on 07/23/19at 22:10; Start 07/23/19 at 22:00; Stop 07/24/19 at 21:59; Status DC Magnesium Sulfate 50 ml @ 25 mls/hr PRN DAILY PRN IV for Mag < 1.7 on am labs Last administered on 08/08/19at 17:27; Start 07/24/19 at 09:15 Sodium Chloride 90 meq/Potassium Chloride 15 meq/ Potassium Phosphate 10 mmol/ Magnesium Sulfate 8 meq/Calcium Gluconate 15 meq/ Multivitamins 10 ml/Chromium/ Copper/Manganese/ Seleni/Zn 0.5 ml/ Insulin Human Regular 25 unit/ Total Parenteral Nutrition/Amino Acids/Dextrose/ Fat Emulsion Intravenous 1,400 ml @ 58.333 mls/ hr TPN CONT IV Last administered on 07/24/19at 21:20; Start 07/24/19 at 22:00; Stop 07/25/19 at 21:59; Status DC Sodium Chloride 1,000 ml @ 1,000 mls/hr Q1H PRN IV hypotension; Start 07/24/19 at 12:23; Stop 07/24/19 at 18:22; Status DC Albumin Human 200 ml @ 200 mls/hr 1X ONCE IV Last administered on 07/24/19at 13:34; Start 07/24/19 at 12:30; Stop 07/24/19 at 13:29; Status DC Diphenhydramine HCl (Benadryl) 25 mg 1X PRN PRN IV ITCHING; Start 07/24/19 at 12:30; Stop 07/25/19 at 12:29; Status DC Diphenhydramine HCl (Benadryl) 25 mg 1X PRN PRN IV ITCHING; Start 07/24/19 at 12:30; Stop 07/25/19 at 12:29; Status DC Info (PHARMACY MONITORING -- do not chart) 1 each PRN DAILY PRN MC SEE COMM ENTS; Start 07/24/19 at 12:30; Status Cancel Bupivacaine HCl/ Epinephrine Bitart (Sensorcain-Epi 0.5%-1:750771 Mpf) 30 ml STK-MED ONCE .ROUTE Last administered on 07/25/19at 11:44; Start 07/25/19 at 11:00; Stop 07/25/19 at 11:01; Status DC Cellulose (Surgicel Fibrillar 1x2) 1 each STK-MED ONCE .ROUTE ; Start 07/25/19 at 11:00; Stop 07/25/19 at 11:01; Status DC Sodium Chloride 90 meq/Potassium Chloride 15 meq/ Potassium Phosphate 10 mmol/ Magnesium Sulfate 12 meq/Calcium Gluconate 15 meq/ Multivitamins 10 ml/Chromium/ Copper/Manganese/ Seleni/Zn 0.5 ml/ Insulin Human Regular 25 unit/ Total Parenteral Nutrition/Amino Acids/Dextrose/ Fat Emulsion Intravenous 1,400 ml @ 58.333 mls/ hr TPN CONT IV Last administered on 07/25/19at 22:24; Start 07/25/19 at 22:00; Stop 07/26/19 at 21:59; Status DC Propofol 20 ml @ As Directed STK-MED ONCE IV ; Start 07/25/19 at 11:07; Stop 07/25/19 at 11:07; Status DC Cellulose (Surgicel Hemostat 4x8) 1 each STK-MED ONCE .ROUTE Last administered on 07/25/19at 11:44; Start 07/25/19 at 11:55; Stop 07/25/19 at 11:56; Status DC Sevoflurane (Ultane) 60 ml STK-MED ONCE IH ; Start 07/25/19 at 12:46; Stop 07/25/19 at 12:46; Status DC Sodium Chloride 1,000 ml @ 1,000 mls/hr Q1H PRN IV hypotension; Start 07/25/19 at 13:51; Stop 07/25/19 at 19:50; Status DC Albumin Human 200 ml @ 200 mls/hr 1X PRN PRN IV Hypotension Last administered on 07/25/19at 14:51; Start 07/25/19 at 14:00; Stop 07/25/19 at 19:59; Status DC Diphenhydramine HCl (Benadryl) 25 mg 1X PRN PRN IV ITCHING; Start 07/25/19 at 14:00; Stop 07/26/19 at 13:59; Status DC Diphenhydramine HCl (Benadryl) 25 mg 1X PRN PRN IV ITCHING; Start 07/25/19 at 14:00; Stop 07/26/19 at 13:59; Status DC Sodium Chloride 1,000 ml @ 400 mls/hr Q2H30M PRN IV PATENCY; Start 07/25/19 at 13:51; Stop 07/26/19 at 01:50; Status DC Info (PHARMACY MONITORING -- do not chart) 1 each PRN DAILY PRN MC SEE COMMENTS; Start 07/25/19 at 14:00; Stop 07/28/19 at 08:16; Status DC Heparin Sodium (Porcine) (Hep Lock Adult) 500 unit STK-MED ONCE IVP ; Start 07/26/19 at 09:29; Stop 07/26/19 at 09:30; Status DC Sodium Chloride 1,000 ml @ 1,000 mls/hr Q1H PRN IV hypotension; Start 07/26/19 at 10:43; Stop 07/26/19 at 16:42; Status DC Sodium Chloride 1,000 ml @ 400 mls/hr Q2H30M PRN IV PATENCY; Start 07/26/19 at 10:43; Stop 07/26/19 at 22:42; Status DC Info (PHARMACY MONITORING -- do not chart) 1 each PRN DAILY PRN MC SEE COMMENTS; Start 07/26/19 at 10:45; Status UNV Info (PHARMACY MONITORING -- do not chart) 1 each PRN DAILY PRN MC SEE COMMENTS; Start 07/26/19 at 10:45; Status UNV Sodium Chloride 90 meq/Potassium Chloride 15 meq/ Magnesium Sulfate 12 meq/Calcium Gluconate 15 meq/ Multivitamins 10 ml/Chromium/ Copper/Manganese/ Seleni/Zn 0.5 ml/ Insulin Human Regular 25 unit/ Total Parenteral Nutrition/Amino Acids/Dextrose/ Fat Emulsion Intravenous 1,400 ml @ 58.333 mls/ hr TPN CONT IV Last administered on 07/26/19at 22:13; Start 07/26/19 at 22:00; Stop 07/27/19 at 21:59; Status DC Sodium Chloride 1,000 ml @ 1,000 mls/hr Q1H PRN IV hypotension; Start 07/27/19 at 07:50; Stop 07/27/19 at 13:49; Status DC Albumin Human 200 ml @ 200 mls/hr 1X ONCE IV ; Start 07/27/19 at 08:00; Stop 07/27/19 at 08:53; Status DC Diphenhydramine HCl (Benadryl) 25 mg 1X PRN PRN IV ITCHING; Start 07/27/19 at 08:00; Stop 07/28/19 at 07:59; Status DC Diphenhydramine HCl (Benadryl) 25 mg 1X PRN PRN IV ITCHING; Start 07/27/19 at 08:00; Stop 07/28/19 at 07:59; Status DC Info (PHARMACY MONITORING -- do not chart) 1 each PRN DAILY PRN MC SEE COMMENTS; Start 07/27/19 at 08:00; Stop 07/28/19 at 08:16; Status DC Albumin Human 50 ml @ 50 mls/hr 1X ONCE IV ; Start 07/27/19 at 08:53; Stop 07/27/19 at 08:56; Status DC Albumin Human 200 ml @ 50 mls/hr PRN 1X PRN IV HYPOTENSION Last administered on 08/02/19at 11:54; Start 07/27/19 at 09:00; Stop 09/08/19 at 11:14; Status DC Meropenem 500 mg/ Sodium Chloride 50 ml @ 100 mls/hr Q12H IV Last administered on 08/16/19at 10:45; Start 07/27/19 at 10:00; Stop 08/16/19 at 12:37; Status DC Sodium Chloride 90 meq/Magnesium Sulfate 12 meq/ Calcium Gluconate 15 meq/ Multivitamins 10 ml/Chromium/ Copper/Manganese/ Seleni/Zn 0.5 ml/ Insulin Human Regular 25 unit/ Total Parenteral Nutrition/Amino Acids/Dextrose/ Fat Emulsion Intravenous 1,400 ml @ 58.333 mls/ hr TPN CONT IV Last administered on 07/27/19at 21:41; Start 07/27/19 at 22:00; Stop 07/28/19 at 21:59; Status DC Sodium Chloride 1,000 ml @ 1,000 mls/hr Q1H PRN IV hypotension; Start 07/28/19 at 07:58; Stop 07/28/19 at 13:57; Status DC Albumin Human 200 ml @ 200 mls/hr 1X PRN PRN IV Hypotension Last administered on 07/28/19at 09:30; Start 07/28/19 at 08:00; Stop 07/28/19 at 13:59; Status DC Sodium Chloride 1,000 ml @ 400 mls/hr Q2H30M PRN IV PATENCY; Start 07/28/19 at 07:58; Stop 07/28/19 at 19:57; Status DC Info (PHARMACY MONITORING -- do not chart) 1 each PRN DAILY PRN MC SEE COMMENTS; Start 07/28/19 at 08:00; Status Cancel Info (PHARMACY MONITORING -- do not chart) 1 each PRN DAILY PRN MC SEE COMMENTS; Start 07/28/19 at 08:15; Status UNV Sodium Chloride 90 meq/Potassium Phosphate 5 mmol/ Magnesium Sulfate 12 meq/Calcium Gluconate 15 meq/ Multivitamins 10 ml/Chromium/ Copper/Manganese/ Seleni/Zn 0.5 ml/ Insulin Human Regular 30 unit/ Total Parenteral Nutrition/Amino Acids/Dextrose/ Fat Emulsion Intravenous 1,400 ml @ 58.333 mls/ hr TPN CONT IV Last administered on 07/28/19at 22:08; Start 07/28/19 at 22:00; Stop 07/29/19 at 21:59; Status DC Linezolid/Dextrose 300 ml @ 300 mls/hr Q12HR IV Last administered on 08/08/19at 20:40; Start 07/29/19 at 11:00; Stop 08/09/19 at 08:10; Status DC Sodium Chloride 90 meq/Potassium Phosphate 15 mmol/ Magnesium Sulfate 12 meq/Calcium Gluconate 15 meq/ Multivitamins 10 ml/Chromium/ Copper/Manganese/ Seleni/Zn 0.5 ml/ Insulin Human Regular 30 unit/ Total Parenteral Nutrition/Amino Acids/Dextrose/ Fat Emulsion Intravenous 1,400 ml @ 58.333 mls/ hr TPN CONT IV Last administered on 07/29/19at 21:49; Start 07/29/19 at 22:00; Stop 07/30/19 at 21:59; Status DC Sodium Chloride 90 meq/Potassium Phosphate 15 mmol/ Magnesium Sulfate 12 meq/Calcium Gluconate 15 meq/ Multivitamins 10 ml/Chromium/ Copper/Manganese/ Seleni/Zn 0.5 ml/ Insulin Human Regular 40 unit/ Total Parenteral Nutrition/Amino Acids/Dextrose/ Fat Emulsion Intravenous 1,400 ml @ 58.333 mls/ hr TPN CONT IV Last administered on 07/30/19at 21:21; Start 07/30/19 at 22:00; Stop 07/31/19 at 21:59; Status DC Sodium Chloride 1,000 ml @ 1,000 mls/hr Q1H PRN IV hypotension; Start 07/30/19 at 13:26; Stop 07/30/19 at 19:25; Status DC Albumin Human 200 ml @ 200 mls/hr 1X PRN PRN IV Hypotension Last administered on 07/30/19at 15:00; Start 07/30/19 at 13:30; Stop 07/30/19 at 19:29; Status DC Sodium Chloride (Normal Saline Flush) 10 ml 1X PRN PRN IV AP catheter pack; Start 07/30/19 at 13:30; Stop 07/31/19 at 13:29; Status DC Sodium Chloride (Normal Saline Flush) 10 ml 1X PRN PRN IV 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 catheter pack; Start 07/30/19 at 13:30; Stop 07/31/19 at 13:29; Status DC Sodium Chloride 1,000 ml @ 400 mls/hr Q2H30M PRN IV PATENCY; Start 07/30/19 at 13:26; Stop 07/31/19 at 01:25; Status DC Info (PHARMACY MONITORING -- do not chart) 1 each PRN DAILY PRN MC SEE COMMENTS; Start 07/30/19 at 13:30; Stop 07/30/19 at 13:33; Status DC Info (PHARMACY MONITORING -- do not chart) 1 each PRN DAILY PRN MC SEE COMMENTS; Start 07/30/19 at 13:30; Stop 07/30/19 at 13:34; Status DC Sodium Chloride 90 meq/Potassium Phosphate 19 mmol/ Magnesium Sulfate 12 meq/Calcium Gluconate 15 meq/ Multivitamins 10 ml/Chromium/ Copper/Manganese/ Seleni/Zn 0.5 ml/ Insulin Human Regular 40 unit/ Total Parenteral Nutrition/Amino Acids/Dextrose/ Fat Emulsion Intravenous 1,400 ml @ 58.333 mls/ hr TPN CONT IV Last administered on 07/31/19at 21:54; Start 07/31/19 at 22:00; Stop 08/01/19 at 21:59; Status DC Sodium Chloride 1,000 ml @ 1,000 mls/hr Q1H PRN IV hypotension; Start 08/01/19 at 09:35; Stop 08/01/19 at 15:34; Status DC Albumin Human 200 ml @ 200 mls/hr 1X PRN PRN IV Hypotension; Start 08/01/19 at 09:45; Stop 08/01/19 at 15:44; Status DC Diphenhydramine HCl (Benadryl) 25 mg 1X PRN PRN IV ITCHING; Start 08/01/19 at 09:45; Stop 08/02/19 at 09:44; Status DC Diphenhydramine HCl (Benadryl) 25 mg 1X PRN PRN IV ITCHING; Start 08/01/19 at 09:45; Stop 08/02/19 at 09:44; Status DC Sodium Chloride 1,000 ml @ 400 mls/hr Q2H30M PRN IV PATENCY; Start 08/01/19 at 09:35; Stop 08/01/19 at 21:34; Status DC Info (PHARMACY MONITORING -- do not chart) 1 each PRN DAILY PRN MC SEE COMMENTS; Start 08/01/19 at 09:45; Status Cancel Sodium Chloride 100 meq/Potassium Phosphate 19 mmol/ Magnesium Sulfate 12 meq/Calcium Gluconate 15 meq/ Multivitamins 10 ml/Chromium/ Copper/Manganese/ Seleni/Zn 0.5 ml/ Insulin Human Regular 40 unit/ Potassium Chloride 20 meq/ Total Parenteral Nutrition/Amino Acids/Dextrose/ Fat Emulsion Intravenous 1,400 ml @ 58.333 mls/ hr TPN CONT IV Last administered on 08/01/19at 22:02; Start 08/01/19 at 22:00; Stop 08/02/19 at 21:59; Status DC Furosemide (Lasix) 40 mg 1X ONCE IVP Last administered on 08/01/19at 14:39; Start 08/01/19 at 14:30; Stop 08/01/19 at 14:31; Status DC Metronidazole 100 ml @ 100 mls/hr Q8HRS IV Last administered on 08/09/19at 06:04; Start 08/02/19 at 10:00; Stop 08/09/19 at 08:10; Status DC Sodium Chloride 1,000 ml @ 1,000 mls/hr Q1H PRN IV hypotension; Start 08/02/19 at 08:00; Stop 08/02/19 at 13:59; Status DC Albumin Human 200 ml @ 200 mls/hr 1X PRN PRN IV Hypotension; Start 08/02/19 at 08:00; Stop 08/02/19 at 13:59; Status DC Sodium Chloride 1,000 ml @ 400 mls/hr Q2H30M PRN IV PATENCY; Start 08/02/19 at 08:00; Stop 08/02/19 at 19:59; Status DC Info (PHARMACY MONITORING -- do not chart) 1 each PRN DAILY PRN MC SEE COMMENTS; Start 08/02/19 at 11:30; Status UNV Info (PHARMACY MONITORING -- do not chart) 1 each PRN DAILY PRN MC SEE COMMENTS; Start 08/02/19 at 11:30; Stop 08/04/19 at 12:13; Status DC Sodium Chloride 100 meq/Potassium Phosphate 19 mmol/ Magnesium Sulfate 12 meq/Calcium Gluconate 15 meq/ Multivitamins 10 ml/Chromium/ Copper/Manganese/ Seleni/Zn 0.5 ml/ Insulin Human Regular 40 unit/ Potassium Chloride 20 meq/ Total Parenteral Nutrition/Amino Acids/Dextrose/ Fat Emulsion Intravenous 1,400 ml @ 58.333 mls/ hr TPN CONT IV Last administered on 08/02/19at 21:52; Start 08/02/19 at 22:00; Stop 08/03/19 at 21:59; Status DC Sodium Chloride (Normal Saline Flush) 10 ml QSHIFT PRN IV AFTER MEDS AND BLOOD DRAWS; Start 08/02/19 at 15:00; Stop 08/30/19 at 11:27; Status DC Sodium Chloride (Normal Saline Flush) 10 ml PRN Q5MIN PRN IV AFTER MEDS AND BLOOD DRAWS; Start 08/02/19 at 15:00 Sodium Chloride (Normal Saline Flush) 20 ml PRN Q5MIN PRN IV AFTER MEDS AND BLOOD DRAWS; Start 08/02/19 at 15:00 Sodium Chloride 100 meq/Potassium Phosphate 19 mmol/ Magnesium Sulfate 12 meq/Calcium Gluconate 15 meq/ Multivitamins 10 ml/Chromium/ Copper/Manganese/ Seleni/Zn 0.5 ml/ Insulin Human Regular 40 unit/ Potassium Chloride 20 meq/ Total Parenteral Nutrition/Amino Acids/Dextrose/ Fat Emulsion Intravenous 1,400 ml @ 58.333 mls/ hr TPN CONT IV Last administered on 08/03/19at 21:20; Start 08/03/19 at 22:00; Stop 08/04/19 at 21:59; Status DC Lidocaine HCl (Buffered Lidocaine 1%) 3 ml STK-MED ONCE .ROUTE ; Start 08/03/19 at 13:16; Stop 08/03/19 at 13:16; Status DC Lidocaine HCl (Buffered Lidocaine 1%) 6 ml 1X ONCE INJ Last administered on 08/03/19at 13:45; Start 08/03/19 at 13:30; Stop 08/03/19 at 13:31; Status DC Albumin Human 100 ml @ 100 mls/hr 1X ONCE IV Last administered on 08/03/19at 15:41; Start 08/03/19 at 15:00; Stop 08/03/19 at 15:59; Status DC Albumin Human 50 ml @ 50 mls/hr 1X ONCE IV Last administered on 08/03/19at 15:00; Start 08/03/19 at 15:00; Stop 08/03/19 at 15:59; Status DC Info (PHARMACY MONITORING -- do not chart) 1 each PRN DAILY PRN MC SEE COMMENTS; Start 08/04/19 at 11:30; Status Cancel Info (PHARMACY MONITORING -- do not chart) 1 each PRN DAILY PRN MC SEE COMMENTS; Start 08/04/19 at 11:30; Status UNV Sodium Chloride 100 meq/Potassium Phosphate 10 mmol/ Magnesium Sulfate 12 meq/Calcium Gluconate 15 meq/ Multivitamins 10 ml/Chromium/ Copper/Manganese/ Seleni/Zn 0.5 ml/ Insulin Human Regular 35 unit/ Potassium Chloride 20 meq/ Total Parenteral Nutrition/Amino Acids/Dextrose/ Fat Emulsion Intravenous 1,400 ml @ 58.333 mls/ hr TPN CONT IV Last administered on 08/04/19at 22:10; Start 08/04/19 at 22:00; Stop 08/05/19 at 21:59; Status DC Sodium Chloride 100 meq/Potassium Phosphate 5 mmol/ Magnesium Sulfate 12 meq/Calcium Gluconate 15 meq/ Multivitamins 10 ml/Chromium/ Copper/Manganese/ Seleni/Zn 0.5 ml/ Insulin Human Regular 35 unit/ Potassium Chloride 20 meq/ Total Parenteral Nutrition/Amino Acids/Dextrose/ Fat Emulsion Intravenous 1,400 ml @ 58.333 mls/ hr TPN CONT IV Last administered on 08/05/19at 22:59; Start 08/05/19 at 22:00; Stop 08/06/19 at 21:59; Status DC Sodium Chloride 1,000 ml @ 1,000 mls/hr Q1H PRN IV hypotension; Start 08/06/19 at 08:27; Stop 08/06/19 at 14:26; Status DC Albumin Human 200 ml @ 200 mls/hr 1X PRN PRN IV Hypotension Last administered on 08/06/19at 09:18; Start 08/06/19 at 08:30; Stop 08/06/19 at 14:29; Status DC Sodium Chloride 1,000 ml @ 400 mls/hr Q2H30M PRN IV PATENCY; Start 08/06/19 at 08:27; Stop 08/06/19 at 20:26; Status DC Info (PHARMACY MONITORING -- do not chart) 1 each PRN DAILY PRN MC SEE COMMENTS; Start 08/06/19 at 08:30; Status Cancel Info (PHARMACY MONITORING -- do not chart) 1 each PRN DAILY PRN MC SEE COMMENTS; Start 08/06/19 at 08:30; Stop 08/14/19 at 13:10; Status DC Sodium Chloride 100 meq/Potassium Chloride 40 meq/ Magnesium Sulfate 15 meq/Calcium Gluconate 15 meq/ Multivitamins 10 ml/Chromium/ Copper/Manganese/ Seleni/Zn 0.5 ml/ Insulin Human Regular 35 unit/ Total Parenteral Nutriti on/Amino Acids/Dextrose/ Fat Emulsion Intravenous 1,400 ml @ 58.333 mls/ hr TPN CONT IV Last administered on 08/06/19at 22:00; Start 08/06/19 at 22:00; Stop 08/07/19 at 21:59; Status DC Potassium Chloride/Water 100 ml @ 100 mls/hr 1X ONCE IV Last administered on 08/06/19at 17:28; Start 08/06/19 at 14:45; Stop 08/06/19 at 15:44; Status DC Sodium Chloride 100 meq/Potassium Chloride 40 meq/ Magnesium Sulfate 15 meq/Calcium Gluconate 15 meq/ Multivitamins 10 ml/Chromium/ Copper/Manganese/ Seleni/Zn 0.5 ml/ Insulin Human Regular 35 unit/ Total Parenteral Nutrition/Amino Acids/Dextrose/ Fat Emulsion Intravenous 1,400 ml @ 58.333 mls/ hr TPN CONT IV Last administered on 08/07/19at 22:46; Start 08/07/19 at 22:00; Stop 08/08/19 at 21:59; Status DC Sodium Chloride 100 meq/Potassium Chloride 40 meq/ Magnesium Sulfate 20 meq/Calcium Gluconate 15 meq/ Multivitamins 10 ml/Chromium/ Copper/Manganese/ Seleni/Zn 0.5 ml/ Insulin Human Regular 35 unit/ Total Parenteral Nutrition/Amino Acids/Dextrose/ Fat Emulsion Intravenous 1,400 ml @ 58.333 mls/ hr TPN CONT IV Last administered on 08/08/19at 22:31; Start 08/08/19 at 22:00; Stop 08/09/19 at 21:59; Status DC Fentanyl Citrate (Fentanyl 2ml Vial) 50 mcg PRN Q2HR PRN IVP PAIN Last administered on 08/15/19at 13:32; Start 08/08/19 at 21:00; Stop 08/16/19 at 12:53; Status DC Fentanyl Citrate (Fentanyl 2ml Vial) 25 mcg PRN Q2HR PRN IVP PAIN; Start 08/08/19 at 21:00; Stop 08/16/19 at 12:54; Status DC Enoxaparin Sodium (Lovenox 100mg Syringe) 100 mg Q12HR SQ ; Start 08/09/19 at 21:00; Status UNV Amino Acids/ Glycerin/ Electrolytes 1,000 ml @ 75 mls/hr [id number] IV ; Start 08/08/19 at 21:15; Status UNV Sodium Chloride 1,000 ml @ 1,000 mls/hr Q1H PRN IV hypotension; Start 08/09/19 at 07:56; Stop 08/09/19 at 13:55; Status DC Albumin Human 200 ml @ 200 mls/hr 1X PRN PRN IV Hypotension Last administered on 08/09/19at 08:40; Start 08/09/19 at 08:00; Stop 08/09/19 at 13:59; Status DC Sodium Chloride 1,000 ml @ 400 mls/hr Q2H30M PRN IV PATENCY; Start 08/09/19 at 07:56; Stop 08/09/19 at 19:55; Status DC Info (PHARMACY MONITORING -- do not chart) 1 each PRN DAILY PRN MC SEE COMMENTS; Start 08/09/19 at 08:00; Status UNV Info (PHARMACY MONITORING -- do not chart) 1 each PRN DAILY PRN MC SEE COMMENTS; Start 08/09/19 at 08:00; Status UNV Daptomycin 430 mg/ Sodium Chloride 50 ml @ 100 mls/hr Q24H IV Last administered on 08/09/19at 12:35; Start 08/09/19 at 09:00; Stop 08/09/19 at 12:49; Status DC Sodium Chloride 100 meq/Potassium Chloride 40 meq/ Magnesium Sulfate 20 meq/Calcium Gluconate 15 meq/ Multivitamins 10 ml/Chromium/ Copper/Manganese/ Seleni/Zn 0.5 ml/ Insulin Human Regular 35 unit/ Total Parenteral Nutrition/Amino Acids/Dextrose/ Fat Emulsion Intravenous 1,400 ml @ 58.333 mls/ hr TPN CONT IV Last administered on 08/09/19at 21:26; Start 08/09/19 at 22:00; Stop 08/10/19 at 21:59; Status DC Daptomycin 430 mg/ Sodium Chloride 50 ml @ 100 mls/hr Q48H IV ; Start 08/11/19 at 09:00; Stop 08/10/19 at 11:55; Status DC Sodium Chloride 100 meq/Potassium Chloride 40 meq/ Magnesium Sulfate 20 meq/Calcium Gluconate 15 meq/ Multivitamins 10 ml/Chromium/ Copper/Manganese/ Seleni/Zn 0.5 ml/ Insulin Human Regular 35 unit/ Total Parenteral Nutrition/Amino Acids/Dextrose/ Fat Emulsion Intravenous 1,400 ml @ 58.333 mls/ hr TPN CONT IV Last administered on 08/10/19at 22:27; Start 08/10/19 at 22:00; Stop 08/11/19 at 21:59; Status DC Daptomycin 430 mg/ Sodium Chloride 50 ml @ 100 mls/hr Q24H IV Last administered on 08/12/19at 15:07; Start 08/10/19 at 13:00; Stop 08/13/19 at 13:15; Status DC Sodium Chloride 100 meq/Potassium Chloride 40 meq/ Magnesium Sulfate 20 meq/Calcium Gluconate 10 meq/ Multivitamins 10 ml/Chromium/ Copper/Manganese/ Seleni/Zn 0.5 ml/ Insulin Human Regular 35 unit/ Total Parenteral Nutrition/Amino Acids/Dextrose/ Fat Emulsion Intravenous 1,400 ml @ 58.333 mls/ hr TPN CONT IV Last administered on 08/12/19at 00:06; Start 08/11/19 at 22:00; Stop 08/12/19 at 21:59; Status DC Alteplase, Recombinant (Cathflo For Central Catheter Clearance) 1 mg 1X ONCE INT CAT Last administered on 08/12/19at 11:44; Start 08/12/19 at 10:45; Stop 08/12/19 at 10:46; Status DC Ondansetron HCl (Zofran) 4 mg PRN Q6HRS PRN IV NAUSEA/VOMITING; Start 08/15/19 at 07:00; Stop 08/16/19 at 06:59; Status DC Fentanyl Citrate (Fentanyl 2ml Vial) 25 mcg PRN Q5MIN PRN IV MILD PAIN 1-3; Start 08/15/19 at 07:00; Stop 08/16/19 at 06:59; Status DC Fentanyl Citrate (Fentanyl 2ml Vial) 50 mcg PRN Q5MIN PRN IV MODERATE TO SEVERE PAIN Last administered on 08/15/19at 10:17; Start 08/15/19 at 07:00; Stop 08/16/19 at 06:59; Status DC Ringer's Solution 1,000 ml @ 30 mls/hr Q24H IV ; Start 08/15/19 at 07:00; Stop 08/15/19 at 18:59; Status DC Lidocaine HCl (Xylocaine-Mpf 1% 2ml Vial) 2 ml PRN 1X PRN ID PRIOR TO IV START; Start 08/15/19 at 07:00; Stop 08/16/19 at 06:59; Status DC Prochlorperazine Edisylate (Compazine) 5 mg PACU PRN PRN IV NAUSEA, MRX1; Start 08/15/19 at 07:00; Stop 08/16/19 at 06:59; Status DC Sodium Acetate 50 meq/Potassium Acetate 55 meq/ Magnesium Sulfate 20 meq/Calcium Gluconate 10 meq/ Multivitamins 10 ml/Chromium/ Copper/Manganese/ Seleni/Zn 0.5 ml/ Insulin Human Regular 35 unit/ Total Parenteral Nutrition/Amino Acid s/Dextrose/ Fat Emulsion Intravenous 1,400 ml @ 58.333 mls/ hr TPN CONT IV ; Start 08/12/19 at 22:00; Stop 08/12/19 at 14:15; Status DC Sodium Acetate 50 meq/Potassium Acetate 55 meq/ Magnesium Sulfate 20 meq/Calcium Gluconate 10 meq/ Multivitamins 10 ml/Chromium/ Copper/Manganese/ Seleni/Zn 0.5 ml/ Insulin Human Regular 35 unit/ Total Parenteral Nutrition/Amino Acids/Dextrose/ Fat Emulsion Intravenous 1,800 ml @ 75 mls/hr TPN CONT IV Last administered on 08/12/19at 22:38; Start 08/12/19 at 22:00; Stop 08/13/19 at 21:59; Status DC Sodium Chloride 1,000 ml @ 1,000 mls/hr Q1H PRN IV hypotension; Start 08/12/19 at 15:31; Stop 08/12/19 at 21:30; Status DC Diphenhydramine HCl (Benadryl) 25 mg 1X PRN PRN IV ITCHING; Start 08/12/19 at 15:45; Stop 08/13/19 at 15:44; Status DC Diphenhydramine HCl (Benadryl) 25 mg 1X PRN PRN IV ITCHING; Start 08/12/19 at 15:45; Stop 08/13/19 at 15:44; Status DC Sodium Chloride 1,000 ml @ 400 mls/hr Q2H30M PRN IV PATENCY; Start 08/12/19 at 15:31; Stop 08/13/19 at 03:30; Status DC Info (PHARMACY MONITORING -- do not chart) 1 each PRN DAILY PRN MC SEE COMMENTS; Start 08/12/19 at 15:45 Sodium Acetate 50 meq/Potassium Acetate 55 meq/ Magnesium Sulfate 20 meq/Calcium Gluconate 10 meq/ Multivitamins 10 ml/Chromium/ Copper/Manganese/ Seleni/Zn 0.5 ml/ Insulin Human Regular 35 unit/ Total Parenteral Nutrition/Amino Acids/Dextrose/ Fat Emulsion Intravenous 1,800 ml @ 75 mls/hr TPN CONT IV Last administered on 08/13/19at 22:03; Start 08/13/19 at 22:00; Stop 08/14/19 at 21:59; Status DC Daptomycin 430 mg/ Sodium Chloride 50 ml @ 100 mls/hr Q24H IV Last administered on 08/18/19at 13:00; Start 08/13/19 at 13:00; Stop 08/18/19 at 20:58; Status DC Heparin Sodium (Porcine) 1000 unit/Sodium Chloride 1,001 ml @ 1,001 mls/hr 1X ONCE IRR ; Start 08/15/19 at 06:00; Stop 08/15/19 at 06:59; Status DC Potassium Acetate 55 meq/Magnesium Sulfate 20 meq/ Calcium Gluconate 10 meq/ Multivitamins 10 ml/Chromium/ Copper/Manganese/ Seleni/Zn 0.5 ml/ Insulin Human Regular 35 unit/ Total Parenteral Nutrition/Amino Acids/Dextrose/ Fat Emulsion Intravenous 1,920 ml @ 80 mls/hr TPN CONT IV Last administered on 08/14/19at 22:10; Start 08/14/19 at 22:00; Stop 08/15/19 at 21:59; Status DC Dexamethasone Sodium Phosphate (Decadron) 4 mg STK-MED ONCE .ROUTE ; Start 08/15/19 at 10:56; Stop 08/15/19 at 10:57; Status DC Ondansetron HCl (Zofran) 4 mg STK-MED ONCE .ROUTE ; Start 08/15/19 at 10:56; Stop 08/15/19 at 10:57; Status DC Rocuronium [place] (Zemuron) 50 mg STK-MED ONCE .ROUTE ; Start 08/15/19 at 10:56; Stop 08/15/19 at 10:57; Status DC Fentanyl Citrate (Fentanyl 2ml Vial) 100 mcg STK-MED ONCE .ROUTE ; Start 08/15/19 at 10:56; Stop 08/15/19 at 10:57; Status DC Bupivacaine HCl/ Epinephrine Bitart (Sensorcain-Epi 0.5%-1:[id number] Mpf) 30 ml STK-MED ONCE .ROUTE Last administered on 08/15/19at 12:01; Start 08/15/19 at 10:58; Stop 08/15/19 at 10:58; Status DC Cellulose (Surgicel Hemostat 2x14) 1 each STK-MED ONCE .ROUTE ; Start 08/15/19 at 10:58; Stop 08/15/19 at 10:59; Status DC Iohexol (Omnipaque 300 Mg/ml) 50 ml STK-MED ONCE .ROUTE ; Start 08/15/19 at 10:58; Stop 08/15/19 at 10:59; Status DC Cellulose (Surgicel Hemostat 4x8) 1 each STK-MED ONCE .ROUTE ; Start 08/15/19 at 10:58; Stop 08/15/19 at 10:59; Status DC Bisacodyl (Dulcolax Supp) 10 mg STK-MED ONCE .ROUTE ; Start 08/15/19 at 10:59; Stop 08/15/19 at 10:59; Status DC Heparin Sodium (Porcine) 1000 unit/Sodium Chloride 1,001 ml @ 1,001 mls/hr 1X ONCE IRR ; Start 08/15/19 at 12:00; Stop 08/15/19 at 12:59; Status DC Propofol 20 ml @ As Directed STK-MED ONCE IV ; Start 08/15/19 at 11:05; Stop 08/15/19 at 11:05; Status DC Sevoflurane (Ultane) 90 ml STK-MED ONCE IH ; Start 08/15/19 at 11:05; Stop 08/15/19 at 11:05; Status DC Sevoflurane (Ultane) 60 ml STK-MED ONCE IH ; Start 08/15/19 at 12:26; Stop 08/14 at 12:27; Status DC Propofol 20 ml @ As Directed STK-MED ONCE IV ; Start 08/15/19 at 12:26; Stop 08/15/19 at 12:27; Status DC Phenylephrine HCl (PHENYLEPHRINE in 0.9% NACL PF) 1 mg STK-MED ONCE IV ; Start 08/15/19 at 12:34; Stop 08/15/19 at 12:34; Status DC Heparin Sodium (Porcine) (Heparin Sodium) 5,000 unit Q12HR SQ Last administered on 08/24/19at 20:57; Start 08/15/19 at 21:00; Stop 08/25/19 at 09:59; Status DC Sodium Chloride (Normal Saline Flush) 3 ml QSHIFT PRN IV AFTER MEDS AND BLOOD DRAWS; Start 08/15/19 at 13:45 Naloxone HCl (Narcan) 0.4 mg PRN Q2MIN PRN IV SEE INSTRUCTIONS; Start 08/15/19 at 13:45 Sodium Chloride 1,000 ml @ 25 mls/hr Q24H IV Last administered on 09/06/19at 13:37; Start 08/15/19 at 13:37 Naloxone HCl (Narcan) 0.4 mg PRN Q2MIN PRN IV SEE INSTRUCTIONS; Start 08/15/19 at 14:30; Status UNV Sodium Chloride 1,000 ml @ 25 mls/hr Q24H IV ; Start 08/15/19 at 14:30; Status UNV Hydromorphone HCl 30 ml @ 0 mls/hr CONT PRN PRN IV PER PROTOCOL Last administered on 08/20/19at 16:08; Start 08/15/19 at 14:30; Stop 08/22/19 at 08:55; Status DC Potassium Acetate 55 meq/Magnesium Sulfate 20 meq/ Calcium Gluconate 10 meq/ Multivitamins 10 ml/Chromium/ Copper/Manganese/ Seleni/Zn 0.5 ml/ Insulin Human Regular 35 unit/ Total Parenteral Nutrition/Amino Acids/Dextrose/ Fat Emulsion Intravenous 1,920 ml @ 80 mls/hr TPN CONT IV Last administered on 08/15/19at 22:01; Start 08/15/19 at 22:00; Stop 08/16/19 at 21:59; Status DC Bumetanide (Bumex) 2 mg [id number] IV Last administered on 08/19/19at 13:50; Start 08/16/19 at 14:00; Stop 08/20/19 at 14:10; Status DC Meropenem 1 gm/ Sodium Chloride 100 ml @ 200 mls/hr Q8HRS IV Last administered on 09/08/19at 14:13; Start 08/16/19 at 14:00 Potassium Acetate 55 meq/Magnesium Sulfate 20 meq/ Calcium Gluconate 10 meq/ Multivitamins 10 ml/Chromium/ Copper/Manganese/ Seleni/Zn 0.5 ml/ Insulin Human Regular 35 unit/ Total Parenteral Nutrition/Amino Acids/Dextrose/ Fat Emulsion Intravenous 1,920 ml @ 80 mls/hr TPN CONT IV Last administered on 08/16/19at 22:02; Start 08/16/19 at 22:00; Stop 08/17/19 at 21:59; Status DC Hydromorphone HCl (Dilaudid Standard PRODUCT MGR) 12 mg STK-MED ONCE IV ; Start 08/15/19 at 14:35; Stop 08/16/19 at 13:53; Status DC Artificial Tears (Artificial Tears) 1 drop PRN Q15MIN PRN OU DRY EYE Last admi nistered on 09/05/19at 08:08; Start 08/17/19 at 05:30 Hydromorphone HCl (Dilaudid Standard PRODUCT MGR) 12 mg STK-MED ONCE IV ; Start 08/16/19 at 12:05; Stop 08/17/19 at 09:15; Status DC Potassium Acetate 65 meq/Magnesium Sulfate 20 meq/ Calcium Gluconate 10 meq/ Multivitamins 10 ml/Chromium/ Copper/Manganese/ Seleni/Zn 0.5 ml/ Insulin Human Regular 30 unit/ Total Parenteral Nutrition/Amino Acids/Dextrose/ Fat Emulsion Intravenous 1,920 ml @ 80 mls/hr TPN CONT IV Last administered on 08/17/19at 22:22; Start 08/17/19 at 22:00; Stop 08/18/19 at 21:59; Status DC Cyclobenzaprine HCl (Flexeril) 10 mg PRN Q6HRS PRN PO MUSCLE SPASMS; Start at 10:45 Potassium Acetate 55 meq/Magnesium Sulfate 20 meq/ Calcium Gluconate 10 meq/ Multivitamins 10 ml/Chromium/ Copper/Manganese/ Seleni/Zn 0.5 ml/ Insulin Human Regular 30 unit/ Total Parenteral Nutrition/Amino Acids/Dextrose/ Fat Emulsion Intravenous 1,920 ml @ 80 mls/hr TPN CONT IV Last administered on 08/19/19at 01:00; Start 08/18/19 at 22:00; Stop 08/19/19 at 21:59; Status DC Magnesium Sulfate 50 ml @ 25 mls/hr 1X ONCE IV Last administered on 08/18/19at 17:18; Start 08/18/19 at 12:45; Stop 08/18/19 at 14:44; Status DC Potassium Chloride/Water 100 ml @ 100 mls/hr 1X ONCE IV Last administered on 08/19/19at 11:27; Start 08/19/19 at 12:00; Stop 08/19/19 at 12:59; Status DC Hydromorphone HCl (Dilaudid Standard PRODUCT MGR) 12 mg STK-MED ONCE IV ; Start 08/17/19 at 10:50; Stop 08/19/19 at 11:02; Status DC Hydromorphone HCl (Dilaudid Standard PRODUCT MGR) 12 mg STK-MED ONCE IV ; Start 08/18/19 at 13:47; Stop 08/19/19 at 11:03; Status DC Potassium Acetate 30 meq/Magnesium Sulfate 20 meq/ Calcium Gluconate 10 meq/ M ultivitamins 10 ml/Chromium/ Copper/Manganese/ Seleni/Zn 0.5 ml/ Insulin Human Regular 30 unit/ Potassium Chloride 30 meq/ Total Parenteral Nutrition/Amino Acids/Dextrose/ Fat Emulsion Intravenous 1,920 ml @ 80 mls/hr TPN CONT IV Last administered on 08/19/19at 22:34; Start 08/19/19 at 22:00; Stop 08/20/19 at 21:59; Status DC Potassium Chloride/Water 100 ml @ 100 mls/hr Q1H IV Last administered on 08/20/19at 13:05; Start 08/20/19 at 07:00; Stop 08/20/19 at 10:59; Status DC Magnesium Sulfate 50 ml @ 25 mls/hr 1X ONCE IV Last administered on 08/20/19at 10:34; Start 08/20/19 at 10:30; Stop 08/20/19 at 12:29; Status DC Potassium Chloride 75 meq/ Magnesium Sulfate 20 meq/Calcium Gluconate 10 meq/ Multivitamins 10 ml/Chromium/ Copper/Manganese/ Seleni/Zn 0.5 ml/ Insulin Human Regular 30 unit/ Total Parenteral Nutrition/Amino Acids/Dextrose/ Fat Emulsion Intravenous 1,920 ml @ 80 mls/hr TPN CONT IV Last administered on 08/20/19at 21:51; Start 08/20/19 at 22:00; Stop 08/21/19 at 22:00; Status DC Potassium Chloride 75 meq/ Magnesium Sulfate 20 meq/Calcium Gluconate 10 meq/ Multivitamins 10 ml/Chromium/ Copper/Manganese/ Seleni/Zn 0.5 ml/ Insulin Human Regular 25 unit/ Total Parenteral Nutrition/Amino Acids/Dextrose/ Fat Emulsion Intravenous 1,920 ml @ 80 mls/hr TPN CONT IV Last administered on 08/21/19at 22:04; Start 08/21/19 at 22:00; Stop 08/22/19 at 21:59; Status DC Hydromorphone HCl (Dilaudid) 0.4 mg PRN Q4HRS PRN IVP PAIN Last administered on 08/22/19at 10:57; Start 08/22/19 at 09:00; Stop 08/22/19 at 18:59; Status DC Micafungin Sodium 100 mg/Dextrose 100 ml @ 100 mls/hr Q24H IV Last administered on 09/08/19at 10:53; Start 08/22/19 at 11:00 Daptomycin 485 mg/ Sodium Chloride 50 ml @ 100 mls/hr Q24H IV Last administered on 08/29/19at 13:10; Start 08/22/19 at 11:00; Stop 08/30/19 at 07:44; Status DC Potassium Chloride 75 meq/ Magnesium Sulfate 15 meq/Calcium Gluconate 8 meq/ Multivitamins 10 ml/Chromium/ Copper/Manganese/ Seleni/Zn 0.5 ml/ Insulin Human Regular 25 unit/ Total Parenteral Nutrition/Amino Acids/Dextrose/ Fat Emulsion Intravenous 1,920 ml @ 80 mls/hr TPN CONT IV Last administered on 08/22/19at 23:08; Start 08/22/19 at 22:00; Stop 08/23/19 at 21:59; Status DC Haloperidol Lactate (Haldol Inj) 3 mg 1X ONCE IVP Last administered on 08/22/19at 14:37; Start 08/22/19 at 14:30; Stop 08/22/19 at 14:31; Status DC Hydromorphone HCl (Dilaudid) 1 mg PRN Q4HRS PRN IVP PAIN Last administered on 09/05/19at 06:25; Start 08/22/19 at 19:00; Stop 09/05/19 at 17:10; Status DC Potassium Chloride 75 meq/ Magnesium Sulfate 15 meq/Calcium Gluconate 8 meq/ Multivitamins 10 ml/Chromium/ Copper/Manganese/ Seleni/Zn 0.5 ml/ Insulin Human Regular 20 unit/ Total Parenteral Nutrition/Amino Acids/Dextrose/ Fat Emulsion Intravenous 1,920 ml @ 80 mls/hr TPN CONT IV Last administered on 08/23/19at 22:10; Start 08/23/19 at 22:00; Stop 08/24/19 at 21:59; Status DC Lidocaine HCl (Buffered Lidocaine 1%) 3 ml STK-MED ONCE .ROUTE ; Start 08/24/19 at 11:31; Stop 08/24/19 at 11:31; Status DC Lidocaine HCl (Buffered Lidocaine 1%) 3 ml STK-MED ONCE .ROUTE ; Start 08/24/19 at 12:28; Stop 08/24/19 at 12:29; Status DC Lidocaine HCl (Buffered Lidocaine 1%) 6 ml 1X ONCE INJ Last administered on 08/24/19at 12:53; Start 08/24/19 at 12:45; Stop 08/24/19 at 12:46; Status DC Potassium Chloride 75 meq/ Magnesium Sulfate 15 meq/Calcium Gluconate 8 meq/ Multivitamins 10 ml/Chromium/ Copper/Manganese/ Seleni/Zn 0.5 ml/ Insulin Human Regular 20 unit/ Total Parenteral Nutrition/Amino Acids/Dextrose/ Fat Emulsion Intravenous 1,920 ml @ 80 mls/hr TPN CONT IV Last administered on 08/24/19at 22:00; Start 08/24/19 at 22:00; Stop 08/25/19 at 21:59; Status DC Potassium Chloride 75 meq/ Magnesium Sulfate 15 meq/Calcium Gluconate 8 meq/ Multivitamins 10 ml/Chromium/ Copper/Manganese/ Seleni/Zn 0.5 ml/ Insulin Human Regular 15 unit/ Total Parenteral Nutrition/Amino Acids/Dextrose/ Fat Emulsion Intravenous 1,920 ml @ 80 mls/hr TPN CONT IV Last administered on 08/25/19at 22:28; Start 08/25/19 at 22:00; Stop 08/26/19 at 21:59; Status DC Vecuronium [place] (Norcuron Bolus) 6 mg PRN Q6HRS PRN IV VENT ASYNCHRONY; Start 08/25/19 at 19:15; Stop 08/25/19 at 19:35; Status DC Bumetanide (Bumex) 2 mg 1X ONCE IV Last administered on 08/25/19at 22:09; Start 08/25/19 at 19:45; Stop 08/25/19 at 19:46; Status DC Lidocaine HCl (Buffered Lidocaine 1%) 3 ml STK-MED ONCE .ROUTE ; Start 08/26/19 at 07:59; Stop 08/26/19 at 07:59; Status DC Midazolam HCl (Versed) 5 mg STK-MED ONCE .ROUTE ; Start 08/26/19 at 08:36; Stop 08/26/19 at 08:36; Status DC Fentanyl Citrate (Fentanyl 5ml Vial) 250 mcg STK-MED ONCE .ROUTE ; Start 08/26/19 at 08:36; Stop 08/26/19 at 08:37; Status DC Lidocaine HCl (Buffered Lidocaine 1%) 3 ml 1X ONCE IJ Last administered on 08/26/19at 09:30; Start 08/26/19 at 09:15; Stop 08/26/19 at 09:16; Status DC Midazolam HCl (Versed) 5 mg 1X ONCE IV Last administered on 08/26/19at 09:30; Start 08/26/19 at 09:15; Stop 08/26/19 at 09:16; Status DC Fentanyl Citrate (Fentanyl 5ml Vial) 250 mcg 1X ONCE IV Last administered on 08/26/19at 09:30; Start 08/26/19 at 09:15; Stop 08/26/19 at 09:16; Status DC Bumetanide (Bumex) 2 mg DAILY IV Last administered on 09/05/19at 08:07; Start 08/26/19 at 10:00; Stop 09/05/19 at 17:15; Status DC Potassium Chloride 75 meq/ Magnesium Sulfate 15 meq/ Multivitamins 10 ml/Chromium/ Copper/Manganese/ Seleni/Zn 0.5 ml/ Insulin Human Regular 15 unit/ Total Parenteral Nutrition/Amino Acids/Dextrose/ Fat Emulsion Intravenous 1,920 ml @ 80 mls/hr TPN CONT IV Last administered on 08/26/19at 21:59; Start 08/26/19 at 22:00; Stop 08/27/19 at 21:59; Status DC Metoclopramide HCl (Reglan Vial) 10 mg PRN Q3HRS PRN IVP NAUSEA/VOMITING-3rd choice Last administered on 09/01/19at 04:25; Start 08/27/19 at 16:45 Potassium Chloride 75 meq/ Magnesium Sulfate 15 meq/ Multivitamins 10 ml/Chromium/ Copper/Manganese/ Seleni/Zn 0.5 ml/ Insulin Human Regular 15 unit/ Total Parenteral Nutrition/Amino Acids/Dextrose/ Fat Emulsion Intravenous 1,920 ml @ 80 mls/hr TPN CONT IV Last administered on 08/27/19at 22:41; Start 08/27/19 at 22:00; Stop 08/28/19 at 21:59; Status DC Magnesium Sulfate 50 ml @ 25 mls/hr 1X ONCE IV Last administered on 08/28/19at 10:44; Start 08/28/19 at 09:00; Stop 08/28/19 at 10:59; Status DC Potassium Chloride/Water 100 ml @ 100 mls/hr 1X ONCE IV Last administered on 08/28/19at 09:37; Start 08/28/19 at 09:00; Stop 08/28/19 at 09:59; Status DC Duloxetine HCl (Cymbalta) 30 mg DAILY PO Last administered on 08/29/19at 09:48; Start 08/28/19 at 14:00; Stop 08/31/19 at 10:25; Status DC Potassium Chloride 80 meq/ Magnesium Sulfate 20 meq/ Multivitamins 10 ml/Chromium/ Copper/Manganese/ Seleni/Zn 0.5 ml/ Insulin Human Regular 15 unit/ Total Parenteral Nutrition/Amino Acids/Dextrose/ Fat Emulsion Intravenous 1,920 ml @ 80 mls/hr TPN CONT IV Last administered on 08/28/19at 21:42; Start 08/28/19 at 22:00; Stop 08/29/19 at 21:59; Status DC Potassium Chloride 80 meq/ Magnesium Sulfate 20 meq/ Multivitamins 10 ml/Chromium/ Copper/Manganese/ Seleni/Zn 0.5 ml/ Insulin Human Regular 15 unit/ Total Parenteral Nutrition/Amino Acids/Dextrose/ Fat Emulsion Intravenous 1,920 ml @ 80 mls/hr TPN CONT IV Last administered on 08/29/19at 22:20; Start 08/29/19 at 22:00; Stop 08/30/19 at 21:59; Status DC Lidocaine HCl (Buffered Lidocaine 1%) 3 ml STK-MED ONCE .ROUTE ; Start 08/30/19 at 09:54; Stop 08/30/19 at 09:55; Status DC Hydromorphone HCl (Dilaudid Standard PRODUCT MGR) 12 mg STK-MED ONCE IV ; Start 08/19/19 at 15:50; Stop 08/30/19 at 11:24; Status DC Potassium Chloride 80 meq/ Magnesium Sulfate 20 meq/ Multivitamins 10 ml/Chromium/ Copper/Manganese/ Seleni/Zn 0.5 ml/ Insulin Human Regular 15 unit/ Total Parenteral Nutrition/Amino Acids/Dextrose/ Fat Emulsion Intravenous 1,920 ml @ 80 mls/hr TPN CONT IV Last administered on 08/30/19at 21:40; Start at 22:00; Stop 08/31/19 at 21:59; Status DC Lidocaine HCl (Buffered Lidocaine 1%) 6 ml 1X ONCE INJ Last administered on 04/08at 14:15; Start 08/30/19 at 14:15; Stop 08/30/19 at 14:16; Status DC Potassium Chloride 80 meq/ Magnesium Sulfate 20 meq/ Multivitamins 10 ml/Chromium/ Copper/Manganese/ Seleni/Zn 1 ml/ Insulin Human Regular 15 unit/ Total Parenteral Nutrition/Amino Acids/Dextrose/ Fat Emulsion Intravenous 1,920 ml @ 80 mls/hr TPN CONT IV Last administered on 08/31/19at 22:04; Start 08/31/19 at 22:00; Stop 09/01/19 at 21:59; Status DC Potassium Chloride/Water 100 ml @ 100 mls/hr 1X ONCE IV Last administered on 09/01/19at 11:34; Start 09/01/19 at 11:00; Stop 09/01/19 at 11:59; Status DC Potassium Chloride 90 meq/ Magnesium Sulfate 20 meq/ Multivitamins 10 ml/Chromium/ Copper/Manganese/ Seleni/Zn 1 ml/ Insulin Human Regular 15 unit/ Total Parenteral Nutrition/Amino Acids/Dextrose/ Fat Emulsion Intravenous 1,920 ml @ 80 mls/hr TPN CONT IV Last administered on 09/01/19at 22:57; Start at 22:00; Stop 09/02/19 at 21:59; Status DC Potassium Chloride 90 meq/ Magnesium Sulfate 20 meq/ Multivitamins 10 ml/Chromiu m/ Copper/Manganese/ Seleni/Zn 1 ml/ Insulin Human Regular 15 unit/ Total Parenteral Nutrition/Amino Acids/Dextrose/ Fat Emulsion Intravenous 1,920 ml @ 80 mls/hr TPN CONT IV Last administered on 09/02/19at 22:48; Start 09/02/19 at 22:00; Stop 09/03/19 at 21:59; Status DC Potassium Chloride 90 meq/ Magnesium Sulfate 20 meq/ Multivitamins 10 ml/Chromium/ Copper/Manganese/ Seleni/Zn 1 ml/ Insulin Human Regular 15 unit/ Total Parenteral Nutrition/Amino Acids/Dextrose/ Fat Emulsion Intravenous 1,890 ml @ 78.75 mls/ hr TPN CONT IV Last administered on 09/03/19at 22:15; Start 09/03/19 at 22:00; Stop 09/04/19 at 21:59; Status DC Linezolid/Dextrose 300 ml @ 300 mls/hr Q12HR IV Last administered on 09/06/19at 21:08; Start 09/04/19 at 09:00; Stop 09/07/19 at 08:11; Status DC Daptomycin 450 mg/ Sodium Chloride 50 ml @ 100 mls/hr Q24H IV Last administered on 09/07/19at 09:25; Start 09/04/19 at 09:00; Stop 09/08/19 at 08:30; Status DC Potassium Chloride 90 meq/ Magnesium Sulfate 20 meq/ Multivitamins 10 ml/Chrom ium/ Copper/Manganese/ Seleni/Zn 1 ml/ Insulin Human Regular 15 unit/ Total Parenteral Nutrition/Amino Acids/Dextrose/ Fat Emulsion Intravenous 1,890 ml @ 78.75 mls/ hr TPN CONT IV Last administered on 09/04/19at 21:34; Start 09/04/19 at 22:00; Stop 09/05/19 at 21:59; Status DC Lorazepam (Ativan Inj) 2 mg STK-MED ONCE .ROUTE ; Start 09/04/19 at 14:58; Stop 09/04/19 at 14:58; Status DC Metoprolol Tartrate (Lopressor Vial) 5 mg 1X ONCE IVP Last administered on 09/04/19at 15:31; Start 09/04/19 at 15:15; Stop 09/04/19 at 15:16; Status DC Lorazepam (Ativan Inj) 2 mg 1X ONCE IVP Last administered on 09/04/19at 15:30; Start 09/04/19 at 15:15; Stop 09/04/19 at 15:16; Status DC Enoxaparin Sodium (Lovenox 40mg Syringe) 40 mg Q24H SQ Last administered on 09/07/19at 16:19; Start 09/04/19 at 17:00 Lorazepam (Ativan Inj) 1 mg PRN Q4HRS PRN IVP ANXIETY / AGITATION MILD-MOD; Start 09/04/19 at 19:15 Lorazepam (Ativan Inj) 2 mg PRN Q4HRS PRN IVP ANXIETY / AGITATION SEVERE Last administered on 09/05/19at 22:20; Start 09/04/19 at 19:15 Fentanyl Citrate (Fentanyl 2ml Vial) 50 mcg PRN Q4HRS PRN IVP SEVERE PAIN Last administered on 09/07/19at 05:00; Start 09/05/19 at 13:15 Fentanyl Citrate (Fentanyl 2ml Vial) 25 mcg PRN Q4HRS PRN IVP MODERATE PAIN Last administered on 09/08/19at 13:02; Start 09/05/19 at 13:15 Potassium Chloride 90 meq/ Magnesium Sulfate 20 meq/ Multivitamins 10 ml/Chromium/ Copper/Manganese/ Seleni/Zn 1 ml/ Insulin Human Regular 15 unit/ Total Parenteral Nutrition/Amino Acids/Dextrose/ Fat Emulsion Intravenous 1,890 ml @ 78.75 mls/ hr TPN CONT IV Last administered on 09/05/19at 22:18; Start 09/05/19 at 22:00; Stop 09/06/19 at 21:59; Status DC Furosemide (Lasix) 40 mg 1X ONCE IVP Last administered on 09/05/19at 21:51; Start 09/05/19 at 21:45; Stop 09/05/19 at 21:48; Status DC Albumin Human 100 ml @ 100 mls/hr 1X PRN PRN IV SEE COMMENTS; Start 09/06/19 at 01:30 Furosemide (Lasix) 40 mg [id number] IVP Last administered on 09/08/19at 14:16; Start 09/06/19 at 14:00 Potassium Chloride 90 meq/ Magnesium Sulfate 20 meq/ Multivitamins 10 ml/Chromium/ Copper/Manganese/ Seleni/Zn 1 ml/ Insulin Human Regular 15 unit/ Total Parenteral Nutrition/Amino Acids/Dextrose/ Fat Emulsion Intravenous 1,800 ml @ 75 mls/hr TPN CONT IV Last administered on 09/06/19at 22:31; Start at 22:00; Stop 09/07/19 at 21:59; Status DC Potassium Chloride 90 meq/ Magnesium Sulfate 20 meq/ Multivitamins 10 ml/Chr omium/ Copper/Manganese/ Seleni/Zn 1 ml/ Insulin Human Regular 15 unit/ Total Parenteral Nutrition/Amino Acids/Dextrose/ Fat Emulsion Intravenous 1,800 ml @ 75 mls/hr TPN CONT IV Last administered on 09/07/19at 22:28; Start 09/07/19 at 22:00; Stop 09/08/19 at 21:59 Potassium Chloride 110 meq/ Magnesium Sulfate 20 meq/ Multivitamins 10 ml/Chromium/ Copper/Manganese/ Seleni/Zn 1 ml/ Insulin Human Regular 15 unit/ Total Parenteral Nutrition/Amino Acids/Dextrose/ Fat Emulsion Intravenous 1,800 ml @ 75 mls/hr TPN CONT IV ; Start 09/08/19 at 22:00; Stop 09/09/19 at 21:59 Saliva Substitute (Biotene Moisturizing Mouth) 2 spray PRN Q15MIN PRN PO DRY MOUTH; Start 09/08/19 at 11:00 Active Scripts Active Reported Bisoprolol Fumarate 5 Mg Tablet 10 Mg PO DAILY Vitals/I & O Vital Sign - Last 24 Hours 520/20 5/20/20 5/20/20 5/20/20 16:00 16:00 16:18 16:48 Pulse 96 Resp 18 26 28 B/P (MAP) 128/72 (90) Pulse Ox 100 95 96 O2 Delivery Tracheal Collar Trach Collar Tracheal Collar O2 Flow Rate 6.0 6.0 6.0 6.0 5/20/20 5/20/20 5/20/20 5/20/20 17:00 18:00 19:00 20:00 Temp 98.2 98.3 98.2 98.3 Pulse 86 74 88 102 Resp 24 28 20 34 B/P (MAP) 122/70 (87) 110/64 (79) 108/79 (89) 176/84 (114) Pulse Ox 97 98 98 100 O2 Delivery Tracheal Collar Tracheal Collar Tracheal Collar Tracheal Collar O2 Flow Rate 6.0 6.0 8.0 8.0 5/20 5/20/20 5/20/20 5/20/20 20:00 20:48 21:00 22:00 Pulse 92 92 Resp 26 23 B/P (MAP) 104/58 (73) 109/57 (74) Pulse Ox 100 98 98 O2 Delivery Trach Collar Tracheal Collar Tracheal Collar Tracheal Collar O2 Flow Rate 8.0 8.0 8.0 09/06/20 5//20 5//20 5/21/20 23:00 00:00 00:07 00:20 Temp 98.6 98.6 Pulse 98 92 Resp 37 33 B/P (MAP) 151/73 (99) 153/78 (103) Pulse Ox 98 100 98 O2 Delivery Tracheal Collar Tracheal Collar Trach Collar Tracheal Collar O2 Flow Rate 8.0 8.0 8.0 09/07/20 5/21/20 5/21/20 5/21/20 01:00 02:00 03:00 04:00 Temp 98.5 98.5 Pulse 90 90 88 86 Resp 29 24 21 23 B/P (MAP) 130/91 (104) 111/72 (85) 111/72 (85) 113/71 (85) Pulse Ox 100 100 100 100 O2 Delivery Tracheal Collar Tracheal Collar Tracheal Collar Tracheal Collar O2 Flow Rate 8.0 8.0 8.0 8.0 5//20 509/08/19 09/08/19 04:05 04:20 04:50 05:00 Pulse 88 Resp 26 26 B/P (MAP) 134/73 (93) Pulse Ox 100 100 100 O2 Delivery Trach Collar Tracheal Collar Tracheal Collar Tracheal Collar O2 Flow Rate 8.0 8.0 8.0 09/08/19 09/08/19 09/08/19 09/08/19 05:20 06:00 07:00 08:00 Temp 98.1 98.1 Pulse 84 80 82 Resp 18 20 20 21 B/P (MAP) 105/57 (73) 104/62 (76) 95/54 (68) Pulse Ox 100 96 100 O2 Delivery Tracheal Collar Tracheal Collar Tracheal Collar Tracheal Collar O2 Flow Rate 8.0 8.0 8.0 8.0 09/08/19 09/08/19 09/08/19 09/08/19 08:00 08:00 09:00 09:08 Pulse 92 Resp 26 28 B/P (MAP) 116/73 (87) Pulse Ox 100 100 99 O2 Delivery Trach Collar Tracheal Collar Tracheal Collar Tracheal Collar O2 Flow Rate 8.0 8.0 8.0 09/08/19 09/08/19 09/08/19 09/08/19 09:45 10:00 11:00 11:51 Pulse 92 108 Resp 26 24 28 B/P (MAP) 125/72 (89) 154/78 (103) Pulse Ox 96 100 96 O2 Delivery Tracheal Collar Tracheal Collar Tracheal Collar Trach Collar O2 Flow Rate 8.0 8.0 8.0 8.0 09/08/19 09/08/19 09/08/19 09/08/19 12:00 13:00 13:02 13:38 Temp 98.4 98.4 Pulse 110 116 Resp 33 41 40 36 B/P (MAP) 163/80 (107) 164/85 (111) Pulse Ox 96 96 94 94 O2 Delivery Tracheal Collar Tracheal Collar Tracheal Collar Tracheal Collar O2 Flow Rate 8.0 8.0 8.0 8.0 09/08/19 14:00 Pulse 94 Resp 18 B/P (MAP) 148/86 (106) Pulse Ox 96 O2 Delivery Tracheal Collar O2 Flow Rate 8.0 Intake and Output 09/07/19 09/07/19 09/08/19 15:00 23:00 07:00 Intake Total 0 ml 0 ml Output Total 2035 ml 1070 ml 1460 ml Balance -2035 ml -1070 ml -1460 ml Hemodynamically unstable?: No Is patient in severe pain?: No Is NPO status required?: Yes GREG HERRERA MD September 08, 2019 15:25
[2019-09-08] MEDS: ENOXAPARIN 40 MG/0.4 ML SYRINGE. SQ SCH (17:06)
[2019-09-08] MEDS ORDERED: TOTAL PARENTERAL NUTRITION IV SCH ×8 (22:00)
[2019-09-08] MEDS ORDERED: DEXTROSE 70% IV SCH ×8 (22:00)
[2019-09-08] MEDS ORDERED: AMINO ACID IV SCH ×8 (22:00)
[2019-09-08] MEDS ORDERED: [UNRECOGNIZED DRUG - OTHER] IV SCH ×8 (22:00)
[2019-09-09] VITALS (24 sets, daily range): BP systolic 98–149; BP diastolic 53–86
[2019-09-09] MEDS: DEXMEDETOMIDINE 400 MCG in IV NORMAL SALINE 100ML 96 ML IV PRN ×4 (00:23→22:20)
[2019-09-09] MEDS: MEROPENEM 1 GM in IV NORMAL SALINE 100ML 100 ML IV SCH (05:53)
[2019-09-09] MEDS: fentaNYL PF VIAL 100 MCG/2 ML VIAL IVP PRN ×5 (05:59→22:22)
--- NOTE | 2019-09-09 06:00 | NUR ---
Patient was awake at 0100 and requested her bath be done. I bathed her and changed all the dressings around her drains. The left drain site is red and had a small amount of purulent drainage. Patient has worn her PM valve for at least 3 1/2 hours tonight. Has helped with her cares and is learning to cough up the sputum she had been requesting us to suction out. Had a much better night after her bath.
[2019-09-09] MEDS: INSULIN LISPRO 300 UNITS/3 ML VIAL. SQ SCH ×4 (06:06→18:04)
--- NOTE | 2019-09-09 08:16 | PDOC ---
Infectious Disease Note Subjective: Subjective Patient comfortable, arousable,says feels okay off vent, trach o2 Vital Signs: Vital Signs Vital Signs Date Time Temp Pulse Resp B/P (MAP) Pulse Ox O2 Delivery O2 Flow Rate FiO2 09/09/19 07:50 24 96 Tracheal Collar 8.0 09/09/19 07:00 86 113/61 (78) 09/09/19 04:00 99.2 99.2 Physical Exam: PHYSICAL EXAM GENERAL: Alert, awake trying to talk but has a lot of secretions, remains confused HEENT: oral cavity dry, NGT NECK: Trach with speaking valve LUNGS: no rhonchi HEART: S1, S2, regular ABDOMEN: mod Distended, hypoactive BS, tender, + drainsx1 : Lind (08/01) EXTREMITIES: Generalized edema, improving, no cyanosis, SCDs bilaterally SKIN: Warm and dry. No generalized rash. FAGOTER: Very weak PICC(08/17) clean Medications: Inpatient Meds: Current Medications Medications (Trade) Dose Ordered Sig/Yvon Start Time Stop Time Status Last Admin Dose Admin Acetaminophen (Tylenol Supp) 650 mg PRN Q6HRS PRN 07/12/19 10:30 08/23/19 09:12 650 MG Acetaminophen (Tylenol) 650 mg PRN Q6HRS PRN 07/09/19 03:36 08/31/19 10:25 DC 08/04/19 19:56 650 MG Albumin Human 100 ml @ 100 mls/hr 1X PRN PRN 09/06/19 01:30 Albuterol Sulfate (Ventolin Neb Soln) 2.5 mg 1X ONCE 07/05/19 22:30 07/05/19 22:31 DC 07/06/19 00:56 2.5 MG Alteplase, Recombinant (Cathflo For Central Catheter Clearance) 1 mg 1X ONCE 08/12/19 10:45 08/12/19 10:46 DC 08/12/19 11:44 1 MG Amino Acids/ Glycerin/ Electrolytes 1,000 ml @ 75 mls/hr [id number] 08/08/19 21:15 UNV Artificial Tears (Artificial Tears) 1 drop PRN Q15MIN PRN 08/17/19 05:30 09/05/19 08:08 1 DROP Atenolol (Tenormin) 100 mg DAILY 07/05/19 09:00 07/04/19 20:08 DC Atropine Sulfate (ATROPINE 0.5mg SYRINGE) 0.5 mg PRN Q5MIN PRN 07/21/19 08:15 Benzocaine (Hurricaine One) 1 spray 1X ONCE 07/08/19 14:30 07/08/19 14:31 DC 07/08/19 16:38 1 SPRAY Bisacodyl (Dulcolax Supp) 10 mg STK-MED ONCE 08/15/19 10:59 08/15/19 10:59 DC Bumetanide (Bumex) 2 mg DAILY 08/26/19 10:00 09/05/19 17:15 DC 09/05/19 08:07 2 MG Bupivacaine HCl/ Epinephrine Bitart (Sensorcain-Epi 0.5%-1:[id number] Mpf) 30 ml STK-MED ONCE 08/15/19 10:58 08/15/19 10:58 DC 08/15/19 12:01 7 ML Calcium Carbonate/ Glycine (Tums) 500 mg PRN AFTMEALHC PRN 07/06/19 17:45 08/31/19 10:25 DC Calcium Chloride 1000 mg/Sodium Chloride 110 ml @ 220 mls/hr 1X ONCE 07/05/19 22:30 07/05/19 22:59 DC 07/05/19 22:11 220 MLS/HR Calcium Chloride 3000 mg/Sodium Chloride 1,030 ml @ 50 mls/hr [id number] 07/07/19 08:00 07/09/19 15:23 DC 07/09/19 02:17 50 MLS/HR Calcium Gluconate (Calcium Gluconate) 2,000 mg 1X ONCE 07/07/19 02:15 07/07/19 02:16 DC 07/07/19 02:19 2,000 MG Calcium Gluconate 1000 mg/Sodium Chloride 110 ml @ 220 mls/hr 1X ONCE 07/06/19 03:30 07/06/19 03:59 DC 07/06/19 03:21 220 MLS/HR Calcium Gluconate 2000 mg/Sodium Chloride 120 ml @ 220 mls/hr 1X ONCE 07/06/19 07:30 07/06/19 08:02 DC 07/06/19 09:05 220 MLS/HR Cefepime HCl (Maxipime) 2 gm Q12HR 07/13/19 09:00 07/27/19 09:58 DC 07/26/19 20:56 2 GM Cellulose (Surgicel Fibrillar 1x2) 1 each STK-MED ONCE 07/25/19 11:00 07/25/19 11:01 DC Cellulose (Surgicel Hemostat 2x14) 1 each STK-MED ONCE 08/15/19 10:58 08/15/19 10:59 DC Cellulose (Surgicel Hemostat 4x8) 1 each STK-MED ONCE 08/15/19 10:58 08/15/19 10:59 DC Cyclobenzaprine HCl (Flexeril) 10 mg PRN Q6HRS PRN 08/18/19 10:45 Daptomycin 430 mg/ Sodium Chloride 50 ml @ 100 mls/hr Q24H 08/13/19 13:00 08/18/19 20:58 DC 08/18/19 13:00 100 MLS/HR Daptomycin 450 mg/ Sodium Chloride 50 ml @ 100 mls/hr Q24H 09/04/19 09:00 09/08/19 08:30 DC 09/07/19 09:25 100 MLS/HR Daptomycin 485 mg/ Sodium Chloride 50 ml @ 100 mls/hr Q24H 08/22/19 11:00 08/30/19 07:44 DC 08/29/19 13:10 100 MLS/HR Daptomycin 500 mg/ Sodium Chloride 50 ml @ 100 mls/hr Q48H 07/13/19 08:30 07/29/19 10:07 DC 07/29/19 09:57 100 MLS/HR Dexamethasone Sodium Phosphate (Decadron) 4 mg STK-MED ONCE 08/15/19 10:56 08/15/19 10:57 DC Dexmedetomidine HCl 400 mcg/ Sodium Chloride 100 ml @ 0 mls/hr CONT PRN 07/21/19 08:15 09/09/19 00:23 13.4 MLS/HR Dextrose (Dextrose 50%-Water Syringe) 12.5 gm PRN Q15MIN PRN 07/04/19 09:30 Digoxin (Lanoxin) 125 mcg 1X ONCE 07/07/19 18:00 07/07/19 18:01 DC 07/07/19 17:10 125 MCG Diphenhydramine HCl (Benadryl) 25 mg 1X PRN PRN 08/12/19 15:45 08/13/19 15:44 DC Duloxetine HCl (Cymbalta) 30 mg DAILY 08/28/19 14:00 08/31/19 10:25 DC 08/29/19 09:48 30 MG Enoxaparin Sodium (Lovenox 100mg Syringe) 100 mg Q12HR 08/09/19 21:00 UNV Enoxaparin Sodium (Lovenox 40mg Syringe) 40 mg Q24H 09/04/19 17:00 09/08/19 17:06 40 MG Etomidate (Amidate) 8 mg 1X ONCE 07/11/19 08:30 07/11/19 08:31 DC 07/11/19 08:33 8 MG Fentanyl Citrate (Fentanyl 2ml Vial) 25 mcg PRN Q4HRS PRN 09/05/19 13:15 09/09/19 05:59 25 MCG Fentanyl Citrate (Fentanyl 5ml Vial) 250 mcg 1X ONCE 08/26/19 09:15 08/26/19 09:16 DC 08/26/19 09:30 50 MCG Furosemide (Lasix) 40 mg [id number] 09/06/19 14:00 09/08/19 14:16 40 MG Haloperidol Lactate (Haldol Inj) 3 mg 1X ONCE 08/22/19 14:30 08/22/19 14:31 DC 08/22/19 14:37 3 MG Heparin Sodium (Porcine) (Hep Lock Adult) 500 unit STK-MED ONCE 07/26/19 09:29 07/26/19 09:30 DC Heparin Sodium (Porcine) (Heparin Sodium) 5,000 unit Q12HR 08/15/19 21:00 08/25/19 09:59 DC 08/24/19 20:57 5,000 UNIT Heparin Sodium (Porcine) 1000 unit/Sodium Chloride 1,001 ml @ 1,001 mls/hr 1X ONCE 08/15/19 12:00 08/15/19 12:59 DC Hydromorphone HCl (Dilaudid Standard DENTAL PROFESSIONAL) 12 mg STK-MED ONCE 08/19/19 15:50 08/30/19 11:24 DC Hydromorphone HCl (Dilaudid) 1 mg PRN Q4HRS PRN 08/22/19 19:00 09/05/19 17:10 DC 09/05/19 06:25 1 MG Info (CONTRAST GIVEN -- Rx MONITORING) 1 each PRN DAILY PRN 07/18/19 11:45 07/20/19 11:44 DC Info (Icu Electrolyte Protocol) 1 ea CONT PRN PRN 07/17/19 13:15 Info (PHARMACY MONITORING -- do not chart) 1 each PRN DAILY PRN 08/12/19 15:45 Info (Tpn Per Pharmacy) 1 each PRN DAILY PRN 07/06/19 12:30 UNV Insulin Human Lispro (HumaLOG) 0-9 UNITS Q6HRS 07/04/19 09:30 09/09/19 06:06 4 UNITS Insulin Human Regular (HumuLIN R VIAL) 5 unit 1X ONCE 07/05/19 22:30 07/05/19 22:31 DC 07/05/19 22:14 5 UNIT Iohexol (Omnipaque 240 Mg/ml) 30 ml 1X ONCE 07/18/19 11:30 07/18/19 11:33 DC 07/18/19 11:30 30 ML Iohexol (Omnipaque 300 Mg/ml) 50 ml STK-MED ONCE 08/15/19 10:58 08/15/19 10:59 DC Iohexol (Omnipaque 350 Mg/ml) 90 ml 1X ONCE 07/04/19 03:30 07/04/19 03:31 DC 07/04/19 03:25 90 ML Ketorolac Tromethamine (Toradol 30mg Vial) 30 mg 1X ONCE 07/04/19 03:00 07/04/19 03:01 DC 07/04/19 02:54 30 MG Lidocaine HCl (Buffered Lidocaine 1%) 6 ml 1X ONCE 08/30/19 14:15 08/30/19 14:16 DC 08/30/19 14:15 3 ML Lidocaine HCl (Glydo (Lidocaine) Jelly) 1 ramu 1X ONCE 07/08/19 14:30 07/08/19 14:31 DC 07/08/19 16:38 1 RAMU Lidocaine HCl (Xylocaine-Mpf 1% 2ml Vial) 2 ml PRN 1X PRN 08/15/19 07:00 08/16/19 06:59 DC Linezolid/Dextrose 300 ml @ 300 mls/hr Q12HR 09/04/19 09:00 09/07/19 08:11 DC 09/06/19 21:08 300 MLS/HR Lorazepam (Ativan Inj) 2 mg PRN Q4HRS PRN 09/04/19 19:15 09/05/19 22:20 2 MG Magnesium Sulfate 50 ml @ 25 mls/hr 1X ONCE 08/28/19 09:00 08/28/19 10:59 DC 08/28/19 10:44 25 MLS/HR Meropenem 1 gm/ Sodium Chloride 100 ml @ 200 mls/hr Q8HRS 08/16/19 14:00 09/09/19 05:53 200 MLS/HR Meropenem 500 mg/ Sodium Chloride 50 ml @ 100 mls/hr Q12H 07/27/19 10:00 08/16/19 12:37 DC 08/16/19 10:45 100 MLS/HR Metoclopramide HCl (Reglan Vial) 10 mg PRN Q3HRS PRN 08/27/19 16:45 09/01/19 04:25 10 MG Metoprolol Tartrate (Lopressor Vial) 5 mg 1X ONCE 09/04/19 15:15 09/04/19 15:16 DC 09/04/19 15:31 5 MG Metronidazole 100 ml @ 100 mls/hr Q8HRS 08/02/19 10:00 08/09/19 08:10 DC 08/09/19 06:04 100 MLS/HR Micafungin Sodium 100 mg/Dextrose 100 ml @ 100 mls/hr Q24H 08/22/19 11:00 09/08/19 10:53 100 MLS/HR Midazolam HCl (Versed) 5 mg 1X ONCE 08/26/19 09:15 08/26/19 09:16 DC 08/26/19 09:30 1 MG Midazolam HCl 100 mg/Sodium Chloride 100 ml @ 7 mls/hr CONT PRN 07/16/19 16:00 07/27/19 15:35 7 MLS/HR Midazolam HCl 50 mg/Sodium Chloride 50 ml @ 0 mls/hr CONT PRN 07/11/19 08:15 07/16/19 15:59 DC 07/14/19 22:39 7 MLS/HR Morphine Sulfate (Morphine Sulfate) 2 mg PRN Q2HR PRN 07/04/19 05:00 07/05/19 14:15 DC 07/05/19 12:26 2 MG Multi-Ingred Cream/Lotion/Oil/ Oint (Artificial Tears Eye Ointment) 1 ramu PRN Q1HR PRN 07/13/19 17:30 08/01/19 08:19 1 RAMU Naloxone HCl (Narcan) 0.4 mg PRN Q2MIN PRN 08/15/19 14:30 UNV Norepinephrine Bitartrate 8 mg/ Dextrose 258 ml @ 17.299 mls/ hr CONT PRN 07/05/19 15:30 08/05/19 09:19 DC 08/02/19 12:48 20.9 MLS/HR Ondansetron HCl (Zofran) 4 mg STK-MED ONCE 08/15/19 10:56 08/15/19 10:57 DC Pantoprazole Sodium (PROTONIX VIAL for IV PUSH) 40 mg DAILYAC 07/04/19 11:30 09/08/19 08:22 40 MG Phenylephrine HCl (PHENYLEPHRINE in 0.9% NACL PF) 1 mg STK-MED ONCE 08/15/19 12:34 08/15/19 12:34 DC Piperacillin Sod/ Tazobactam Sod 4.5 gm/Sodium Chloride 100 ml @ 200 mls/hr 1X ONCE 07/04/19 06:00 07/04/19 06:29 DC 07/04/19 05:44 200 MLS/HR Potassium Chloride 110 meq/ Magnesium Sulfate 20 meq/ Multivitamins 10 ml/Chromium/ Copper/Manganese/ Seleni/Zn 1 ml/ Insulin Human Regular 15 unit/ Total Parenteral Nutrition/Amino Acids/Dextrose/ Fat Emulsion Intravenous 1,800 ml @ 75 mls/hr TPN CONT 09/08/19 22:00 09/09/19 21:59 09/08/19 22:01 75 MLS/HR Potassium Chloride 15 meq/ Bicarbonate Dialysis Soln w/ out KCl 5,007.5 ml @ 1,000 mls/ hr Q5H1M 07/17/19 20:00 07/21/19 13:08 DC 07/20/19 18:14 1,000 MLS/HR Potassium Chloride 20 meq/ Bicarbonate Dialysis Soln w/ out KCl 5,010 ml @ 1,000 mls/hr Q5H1M 07/13/19 16:00 07/17/19 19:59 DC 07/17/19 14:54 1,000 MLS/HR Potassium Chloride 75 meq/ Magnesium Sulfate 15 meq/ Multivitamins 10 ml/Chromium/ Copper/Manganese/ Seleni/Zn 0.5 ml/ Insulin Human Regular 15 unit/ Total Parenteral Nutrition/Amino Acids/Dextrose/ Fat Emulsion Intravenous 1,920 ml @ 80 mls/hr TPN CONT 08/27/19 22:00 08/28/19 21:59 DC 08/27/19 22:41 80 MLS/HR Potassium Chloride 75 meq/ Magnesium Sulfate 15 meq/Calcium Gluconate 8 meq/ Multivitamins 10 ml/Chromium/ Copper/Manganese/ Seleni/Zn 0.5 ml/ Insulin Human Regular 15 unit/ Total Parenteral Nutrition/Amino Acids/Dextrose/ Fat Emulsion Intravenous 1,920 ml @ 80 mls/hr TPN CONT 08/25/19 22:00 08/26/19 21:59 DC 08/25/19 22:28 80 MLS/HR Potassium Chloride 75 meq/ Magnesium Sulfate 15 meq/Calcium Gluconate 8 meq/ Multivitamins 10 ml/Chromium/ Copper/Manganese/ Seleni/Zn 0.5 ml/ Insulin Human Regular 20 unit/ Total Parenteral Nutrition/Amino Acids/Dextrose/ Fat Emulsion Intravenous 1,920 ml @ 80 mls/hr TPN CONT 08/24/19 22:00 08/25/19 21:59 DC 08/24/19 22:00 80 MLS/HR Potassium Chloride 75 meq/ Magnesium Sulfate 15 meq/Calcium Gluconate 8 meq/ Multivitamins 10 ml/Chromium/ Copper/Manganese/ Seleni/Zn 0.5 ml/ Insulin Human Regular 25 unit/ Total Parenteral Nutrition/Amino Acids/Dextrose/ Fat Emulsion Intravenous 1,920 ml @ 80 mls/hr TPN CONT 08/22/19 22:00 08/23/19 21:59 DC 08/22/19 23:08 80 MLS/HR Potassium Chloride 75 meq/ Magnesium Sulfate 20 meq/Calcium Gluconate 10 meq/ Multivitamins 10 ml/Chromium/ Copper/Manganese/ Seleni/Zn 0.5 ml/ Insulin Human Regular 25 unit/ Total Parenteral Nutrition/Amino Acids/Dextrose/ Fat Emulsion Intravenous 1,920 ml @ 80 mls/hr TPN CONT 08/21/19 22:00 08/22/19 21:59 DC 08/21/19 22:04 80 MLS/HR Potassium Chloride 75 meq/ Magnesium Sulfate 20 meq/Calcium Gluconate 10 meq/ Multivitamins 10 ml/Chromium/ Copper/Manganese/ Seleni/Zn 0.5 ml/ Insulin Human Regular 30 unit/ Total Parenteral Nutrition/Amino Acids/Dextrose/ Fat Emulsion Intravenous 1,920 ml @ 80 mls/hr TPN CONT 08/20/19 22:00 08/21/19 22:00 DC 08/20/19 21:51 80 MLS/HR Potassium Chloride 80 meq/ Magnesium Sulfate 20 meq/ Multivitamins 10 ml/Chromium/ Copper/Manganese/ Seleni/Zn 0.5 ml/ Insulin Human Regular 15 unit/ Total Parenteral Nutrition/Amino Acids/Dextrose/ Fat Emulsion Intravenous 1,920 ml @ 80 mls/hr TPN CONT 08/30/19 22:00 08/31/19 21:59 DC 08/30/19 21:40 80 MLS/HR Potassium Chloride 80 meq/ Magnesium Sulfate 20 meq/ Multivitamins 10 ml/Chromium/ Copper/Manganese/ Seleni/Zn 1 ml/ Insulin Human Regular 15 unit/ Total Parenteral Nutrition/Amino Acids/Dextrose/ Fat Emulsion Intravenous 1,920 ml @ 80 mls/hr TPN CONT 08/31/19 22:00 09/01/19 21:59 DC 08/31/19 22:04 80 MLS/HR Potassium Chloride 90 meq/ Magnesium Sulfate 20 meq/ Multivitamins 10 ml/Chromium/ Copper/Manganese/ Seleni/Zn 1 ml/ Insulin Human Regular 15 unit/ Total Parenteral Nutrition/Amino Acids/Dextrose/ Fat Emulsion Intravenous 1,800 ml @ 75 mls/hr TPN CONT 09/07/19 22:00 09/08/19 21:59 DC 09/07/19 22:28 75 MLS/HR Potassium Chloride/Water 100 ml @ 100 mls/hr 1X ONCE 09/01/19 11:00 09/01/19 11:59 DC 09/01/19 11:34 100 MLS/HR Potassium Phosphate 20 mmol/ Sodium Chloride 106.6667 ml @ 51.667 m... 1X ONCE 07/13/19 13:00 07/13/19 15:03 DC 07/13/19 12:51 51.667 MLS/HR Potassium Acetate 30 meq/Magnesium Sulfate 20 meq/ Calcium Gluconate 10 meq/ Multivitamins 10 ml/Chromium/ Copper/Manganese/ Seleni/Zn 0.5 ml/ Insulin Human Regular 30 unit/ Potassium Chloride 30 meq/ Total Parenteral Nutrition/Amino Acids/Dextrose/ Fat Emulsion Intravenous 1,920 ml @ 80 mls/hr TPN CONT 08/19/19 22:00 08/20/19 21:59 DC 08/19/19 22:34 80 MLS/HR Potassium Acetate 55 meq/Magnesium Sulfate 20 meq/ Calcium Gluconate 10 meq/ Multivitamins 10 ml/Chromium/ Copper/Manganese/ Seleni/Zn 0.5 ml/ Insulin Human Regular 30 unit/ Total Parenteral Nutrition/Amino Acids/Dextrose/ Fat Emulsion Intravenous 1,920 ml @ 80 mls/hr TPN CONT 08/18/19 22:00 08/19/19 21:59 DC 08/19/19 01:00 80 MLS/HR Potassium Acetate 55 meq/Magnesium Sulfate 20 meq/ Calcium Gluconate 10 meq/ Multivitamins 10 ml/Chromium/ Copper/Manganese/ Seleni/Zn 0.5 ml/ Insulin Human Regular 35 unit/ Total Parenteral Nutrition/Amino Acids/Dextrose/ Fat Emulsion Intravenous 1,920 ml @ 80 mls/hr TPN CONT 08/16/19 22:00 08/17/19 21:59 DC 08/16/19 22:02 80 MLS/HR Potassium Acetate 65 meq/Magnesium Sulfate 20 meq/ Calcium Gluconate 10 meq/ Multivitamins 10 ml/Chromium/ Copper/Manganese/ Seleni/Zn 0.5 ml/ Insulin Human Regular 30 unit/ Total Parenteral Nutrition/Amino Acids/Dextrose/ Fat Emulsion Intravenous 1,920 ml @ 80 mls/hr TPN CONT 08/17/19 22:00 08/18/19 21:59 DC 08/17/19 22:22 80 MLS/HR Prochlorperazine Edisylate (Compazine) 5 mg PACU PRN PRN 08/15/19 07:00 08/16/19 06:59 DC Propofol 20 ml @ As Directed STK-MED ONCE 08/15/19 12:26 08/15/19 12:27 DC Ringer's Solution 1,000 ml @ 30 mls/hr Q24H 08/15/19 07:00 08/15/19 18:59 DC Rocuronium Line [place] (Zemuron) 50 mg STK-MED ONCE 08/15/19 10:56 08/15/19 10:57 DC Saliva Substitute (Biotene Moisturizing Mouth) 2 spray PRN Q15MIN PRN 09/08/19 11:00 Sevoflurane (Ultane) 60 ml STK-MED ONCE 08/15/19 12:26 08/15/19 12:27 DC Sodium Bicarbonate 50 meq/Sodium Chloride 1,050 ml @ 75 mls/hr Q14H 07/06/19 07:30 07/11/19 10:28 DC 07/10/19 21:10 75 MLS/HR Sodium Acetate 50 meq/Potassium Acetate 55 meq/ Magnesium Sulfate 20 meq/Calcium Gluconate 10 meq/ Multivitamins 10 ml/Chromium/ Copper/Manganese/ Seleni/Zn 0.5 ml/ Insulin Human Regular 35 unit/ Total Parenteral Nutrition/Amino Acids/Dextrose/ Fat Emulsion Intravenous 1,800 ml @ 75 mls/hr TPN CONT 08/13/19 22:00 08/14/19 21:59 DC 08/13/19 22:03 75 MLS/HR Sodium Chloride 1,000 ml @ 25 mls/hr Q24H 08/15/19 14:30 UNV Sodium Chloride (Normal Saline Flush) 3 ml QSHIFT PRN 08/15/19 13:45 Sodium Chloride 90 meq/Calcium Gluconate 10 meq/ Multivitamins 10 ml/Chromium/ Copper/Manganese/ Seleni/Zn 0.5 ml/ Total Parenteral Nutrition/Amino Acids/Dextrose/ Fat Emulsion Intravenous 1,512 ml @ 63 mls/hr TPN CONT 07/06/19 22:00 07/07/19 21:59 DC 07/06/19 22:06 63 MLS/HR Sodium Chloride 90 meq/Calcium Gluconate 10 meq/ Multivitamins 10 ml/Chromium/ Copper/Manganese/ Seleni/Zn 1 ml/ Total Parenteral Nutrition/Amino Acids/Dextrose/ Fat Emulsion Intravenous 55.005 ml @ 2.292 mls/hr TPN CONT 07/06/19 22:00 07/06/19 12:33 DC Sodium Chloride 90 meq/Magnesium Sulfate 10 meq/ Calcium Gluconate 20 meq/ Multivitamins 10 ml/Chromium/ Copper/Manganese/ Seleni/Zn 0.5 ml/ Total Parenteral Nutrition/Amino Acids/Dextrose/ Fat Emulsion Intravenous 1,512 ml @ 63 mls/hr TPN CONT 07/07/19 22:00 07/08/19 21:59 DC 07/07/19 22:25 63 MLS/HR Sodium Chloride 90 meq/Magnesium Sulfate 12 meq/ Calcium Gluconate 15 meq/ Multivitamins 10 ml/Chromium/ Copper/Manganese/ Seleni/Zn 0.5 ml/ Insulin Human Regular 25 unit/ Total Parenteral Nutrition/Amino Acids/Dextrose/ Fat Emulsion Intravenous 1,400 ml @ 58.333 mls/ hr TPN CONT 07/27/19 22:00 07/28/19 21:59 DC 07/27/19 21:41 58.333 MLS/HR Sodium Chloride 90 meq/Potassium Chloride 15 meq/ Magnesium Sulfate 12 meq/Calcium Gluconate 15 meq/ Multivitamins 10 ml/Chromium/ Copper/Manganese/ Seleni/Zn 0.5 ml/ Insulin Human Regular 25 unit/ Total Parenteral Nutrition/Amino Acids/Dextrose/ Fat Emulsion Intravenous 1,400 ml @ 58.333 mls/ hr TPN CONT 07/26/19 22:00 07/27/19 21:59 DC 07/26/19 22:13 58.333 MLS/HR Sodium Chloride 90 meq/Potassium Chloride 15 meq/ Potassium Phosphate 10 mmol/ Magnesium Sulfate 8 meq/Calcium Gluconate 15 meq/ Multivitamins 10 ml/Chromium/ Copper/Manganese/ Seleni/Zn 0.5 ml/ Insulin Human Regular 25 unit/ Total Parenteral Nutrition/Amino Acids/Dextrose/ Fat Emulsion Intravenous 1,400 ml @ 58.333 mls/ hr TPN CONT 07/24/19 22:00 07/25/19 21:59 DC 07/24/19 21:20 58.333 MLS/HR Sodium Chloride 90 meq/Potassium Chloride 15 meq/ Potassium Phosphate 10 mmol/ Magnesium Sulfate 10 meq/Calcium Gluconate 20 meq/ Multivitamins 10 ml/Chromium/ Copper/Manganese/ Seleni/Zn 0.5 ml/ Total Parenteral Nutrition/Amino Acids/Dextrose/ Fat Emulsion Intravenous 1,400 ml @ 58.333 mls/ hr TPN CONT 07/11/19 22:00 07/12/19 21:59 DC 07/11/19 21:42 58.333 MLS/HR Sodium Chloride 90 meq/Potassium Chloride 15 meq/ Potassium Phosphate 10 mmol/ Magnesium Sulfate 12 meq/Calcium Gluconate 15 meq/ Multivitamins 10 ml/Chromium/ Copper/Manganese/ Seleni/Zn 0.5 ml/ Insulin Human Regular 25 unit/ Total Parenteral Nutrition/Amino Acids/Dextrose/ Fat Emulsion Intravenous 1,400 ml @ 58.333 mls/ hr TPN CONT 07/25/19 22:00 07/26/19 21:59 DC 07/25/19 22:24 58.333 MLS/HR Sodium Chloride 90 meq/Potassium Chloride 15 meq/ Potassium Phosphate 15 mmol/ Magnesium Sulfate 10 meq/Calcium Gluconate 15 meq/ Multivitamins 10 ml/Chromium/ Copper/Manganese/ Seleni/Zn 0.5 ml/ Total Parenteral Nutrition/Amino Acids/Dextrose/ Fat Emulsion Intravenous 1,400 ml @ 58.333 mls/ hr TPN CONT 07/12/19 22:00 07/13/19 21:59 DC 07/12/19 22:17 58.333 MLS/HR Sodium Chloride 90 meq/Potassium Chloride 15 meq/ Potassium Phosphate 15 mmol/ Magnesium Sulfate 10 meq/Calcium Gluconate 20 meq/ Multivitamins 10 ml/Chromium/ Copper/Manganese/ Seleni/Zn 0.5 ml/ Total Parenteral Nutrition/Amino Acids/Dextrose/ Fat Emulsion Intravenous 1,200 ml @ 50 mls/hr TPN CONT 07/10/19 22:00 07/10/19 14:17 DC Sodium Chloride 90 meq/Potassium Chloride 15 meq/ Potassium Phosphate 18 mmol/ Magnesium Sulfate 8 meq/Calcium Gluconate 15 meq/ Multivitamins 10 ml/Chromium/ Copper/Manganese/ Seleni/Zn 0.5 ml/ Insulin Human Regular 10 unit/ Total Parenteral Nutrition/Amino Acids/Dextrose/ Fat Emulsion Intravenous 1,400 ml @ 58.333 mls/ hr TPN CONT 07/15/19 22:00 07/16/19 21:59 DC 07/15/19 21:43 58.333 MLS/HR Sodium Chloride 90 meq/Potassium Chloride 15 meq/ Potassium Phosphate 18 mmol/ Magnesium Sulfate 8 meq/Calcium Gluconate 15 meq/ Multivitamins 10 ml/Chromium/ Copper/Manganese/ Seleni/Zn 0.5 ml/ Insulin Human Regular 15 unit/ Total Parenteral Nutrition/Amino Acids/Dextrose/ Fat Emulsion Intravenous 1,400 ml @ 58.333 mls/ hr TPN CONT 07/18/19 22:00 07/19/19 21:59 DC 07/18/19 21:47 58.333 MLS/HR Sodium Chloride 90 meq/Potassium Chloride 15 meq/ Potassium Phosphate 18 mmol/ Magnesium Sulfate 8 meq/Calcium Gluconate 15 meq/ Multivitamins 10 ml/Chromium/ Copper/Manganese/ Seleni/Zn 0.5 ml/ Insulin Human Regular 20 unit/ Total Parenteral Nutrition/Amino Acids/Dextrose/ Fat Emulsion Intravenous 1,400 ml @ 58.333 mls/ hr TPN CONT 07/21/19 22:00 07/22/19 21:59 DC 07/21/19 22:45 58.333 MLS/HR Sodium Chloride 90 meq/Potassium Chloride 15 meq/ Potassium Phosphate 18 mmol/ Magnesium Sulfate 8 meq/Calcium Gluconate 15 meq/ Multivitamins 10 ml/Chromium/ Copper/Manganese/ Seleni/Zn 0.5 ml/ Total Parenteral Nutrition/Amino Acids/Dextrose/ Fat Emulsion Intravenous 1,400 ml @ 58.333 mls/ hr TPN CONT 07/14/19 22:00 07/15/19 21:59 DC 07/14/19 22:00 58.333 MLS/HR Sodium Chloride 90 meq/Potassium Phosphate 15 mmol/ Magnesium Sulfate 12 meq/Calcium Gluconate 15 meq/ Multivitamins 10 ml/Chromium/ Copper/Manganese/ Seleni/Zn 0.5 ml/ Insulin Human Regular 30 unit/ Total Parenteral Nutrition/Amino Acids/Dextrose/ Fat Emulsion Intravenous 1,400 ml @ 58.333 mls/ hr TPN CONT 07/29/19 22:00 07/30/19 21:59 DC 07/29/19 21:49 58.333 MLS/HR Sodium Chloride 90 meq/Potassium Phosphate 15 mmol/ Magnesium Sulfate 12 meq/Calcium Gluconate 15 meq/ Multivitamins 10 ml/Chromium/ Copper/Manganese/ Seleni/Zn 0.5 ml/ Insulin Human Regular 40 unit/ Total Parenteral Nutrition/Amino Acids/Dextrose/ Fat Emulsion Intravenous 1,400 ml @ 58.333 mls/ hr TPN CONT 07/30/19 22:00 07/31/19 21:59 DC 07/30/19 21:21 58.333 MLS/HR Sodium Chloride 90 meq/Potassium Phosphate 19 mmol/ Magnesium Sulfate 12 meq/Calcium Gluconate 15 meq/ Multivitamins 10 ml/Chromium/ Copper/Manganese/ Seleni/Zn 0.5 ml/ Insulin Human Regular 40 unit/ Total Parenteral Nutrition/Amino Acids/Dextrose/ Fat Emulsion Intravenous 1,400 ml @ 58.333 mls/ hr TPN CONT 07/31/19 22:00 08/01/19 21:59 DC 07/31/19 21:54 58.333 MLS/HR Sodium Chloride 90 meq/Potassium Phosphate 5 mmol/ Magnesium Sulfate 12 meq/Calcium Gluconate 15 meq/ Multivitamins 10 ml/Chromium/ Copper/Manganese/ Seleni/Zn 0.5 ml/ Insulin Human Regular 30 unit/ Total Parenteral Nutrition/Amino Acids/Dextrose/ Fat Emulsion Intravenous 1,400 ml @ 58.333 mls/ hr TPN CONT 07/28/19 22:00 07/29/19 21:59 DC 07/28/19 22:08 58.333 MLS/HR Sodium Chloride 100 meq/Potassium Chloride 40 meq/ Magnesium Sulfate 15 meq/Calcium Gluconate 15 meq/ Multivitamins 10 ml/Chromium/ Copper/Manganese/ Seleni/Zn 0.5 ml/ Insulin Human Regular 35 unit/ Total Parenteral Nutrition/Amino Acids/Dextrose/ Fat Emulsion Intravenous 1,400 ml @ 58.333 mls/ hr TPN CONT 08/07/19 22:00 08/08/19 21:59 DC 08/07/19 22:46 58.333 MLS/HR Sodium Chloride 100 meq/Potassium Chloride 40 meq/ Magnesium Sulfate 20 meq/Calcium Gluconate 10 meq/ Multivitamins 10 ml/Chromium/ Copper/Manganese/ Seleni/Zn 0.5 ml/ Insulin Human Regular 35 unit/ Total Parenteral Nutrition/Amino Acids/Dextrose/ Fat Emulsion Intravenous 1,400 ml @ 58.333 mls/ hr TPN CONT 08/11/19 22:00 08/12/19 21:59 DC 08/12/19 00:06 58.333 MLS/HR Sodium Chloride 100 meq/Potassium Chloride 40 meq/ Magnesium Sulfate 20 meq/Calcium Gluconate 15 meq/ Multivitamins 10 ml/Chromium/ Copper/Manganese/ Seleni/Zn 0.5 ml/ Insulin Human Regular 35 unit/ Total Parenteral Nutrition/Amino Acids/Dextrose/ Fat Emulsion Intravenous 1,400 ml @ 58.333 mls/ hr TPN CONT 08/10/19 22:00 08/11/19 21:59 DC 08/10/19 22:27 58.333 MLS/HR Sodium Chloride 100 meq/Potassium Phosphate 10 mmol/ Magnesium Sulfate 12 meq/Calcium Gluconate 15 meq/ Multivitamins 10 ml/Chromium/ Copper/Manganese/ Seleni/Zn 0.5 ml/ Insulin Human Regular 35 unit/ Potassium Chloride 20 meq/ Total Parenteral Nutrition/Amino Acids/Dextrose/ Fat Emulsion Intravenous 1,400 ml @ 58.333 mls/ hr TPN CONT 08/04/19 22:00 08/05/19 21:59 DC 08/04/19 22:10 58.333 MLS/HR Sodium Chloride 100 meq/Potassium Phosphate 19 mmol/ Magnesium Sulfate 12 meq/Calcium Gluconate 15 meq/ Multivitamins 10 ml/Chromium/ Copper/Manganese/ Seleni/Zn 0.5 ml/ Insulin Human Regular 40 unit/ Potassium Chloride 20 meq/ Total Parenteral Nutrition/Amino Acids/Dextrose/ Fat Emulsion Intravenous 1,400 ml @ 58.333 mls/ hr TPN CONT 08/03/19 22:00 08/04/19 21:59 DC 08/03/19 21:20 58.333 MLS/HR Sodium Chloride 100 meq/Potassium Phosphate 5 mmol/ Magnesium Sulfate 12 meq/Calcium Gluconate 15 meq/ Multivitamins 10 ml/Chromium/ Copper/Manganese/ Seleni/Zn 0.5 ml/ Insulin Human Regular 35 unit/ Potassium Chloride 20 meq/ Total Parenteral Nutrition/Amino Acids/Dextrose/ Fat Emulsion Intravenous 1,400 ml @ 58.333 mls/ hr TPN CONT 08/05/19 22:00 08/06/19 21:59 DC 08/05/19 22:59 58.333 MLS/HR Succinylcholine Chloride (Anectine) 120 mg 1X ONCE 07/11/19 08:30 07/11/19 08:31 DC 07/11/19 08:34 120 MG Vecuronium Line [place] (Norcuron Bolus) 6 mg PRN Q6HRS PRN 08/25/19 19:15 08/25/19 19:35 DC Labs: Lab Laboratory Tests Test 09/08/19 12:06 09/09/19 00:39 09/09/19 06:04 Glucose (Fingerstick) 192 mg/dL (70-99) 149 mg/dL (70-99) 164 mg/dL (70-99) Objective: Assessment: Fever intermittent could be from underlying pancreatitis, Acute pancreatitis with persistent necrosis CT a/p 07/27 Increased ascites. 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 Leucocytosis JUANA,Hyperkalemia, Metabolic acidosis off dialysis Acute hypoxic resp failure ,bilateral pleural effusion and atelectasis hypocalcemia Prediabetes HTN s/p trach Plan: Plan of Care DC Merrem 07/26 cont Micafungin Off dapto/ zyvox f/u cultures ,BC neg 09/03 Maintain aspiration precaution Supportive care Follow-up labs and cultures Discussed with nursing staff YUNIOR JONES MD September 09, 2019 08:16
[2019-09-09] MEDS: FUROSEMIDE 40 MG/4 ML VIAL. IVP SCH ×2 (08:31→14:23)
[2019-09-09] MEDS: PANTOPRAZOLE IV PUSH 40 MG VIAL. IVP SCH (08:32)
[2019-09-09 09:02] LABS: HEMATOCRIT 24.4 % (36.0-47.0); HEMOGLOBIN 7.9 g/dL (12.0-15.5); RED BLOOD COUNT 2.77 x10^6/uL (3.50-5.40); RED CELL DISTRIBUTION WIDTH 18.7 % (11.5-14.5); WHITE BLOOD COUNT 8.8 x10^3/uL (4.0-11.0)
[2019-09-09 09:07] LABS: CALCIUM 9.3 mg/dL (8.5-10.1); CREATININE 0.6 mg/dL (0.6-1.0); GFR 106.3; MAGNESIUM 2.1 mg/dL (1.8-2.4); PHOSPHORUS 3.7 mg/dL (2.6-4.7); POTASSIUM 4.3 mmol/L (3.5-5.1)
--- NOTE | 2019-09-09 10:39 | PDOC ---
Subjective: Subjective: Gives me a thumbs up. Objective: Objective: D/w nurse and Dr. Lindquist. Vital Signs: Vital Signs Date Time Temp Pulse Resp B/P (MAP) Pulse Ox O2 Delivery O2 Flow Rate FiO2 09/09/19 10:01 28 98 Tracheal Collar 8.0 09/09/19 10:00 101 146/66 (92) 09/09/19 08:00 99.2 99.2 Labs: Laboratory Tests Test 09/08/19 12:06 09/09/19 00:39 09/09/19 06:04 09/09/19 08:40 Glucose (Fingerstick) 192 mg/dL 149 mg/dL 164 mg/dL White Blood Count 8.8 x10^3/uL Red Blood Count 2.77 x10^6/uL Hemoglobin 7.9 g/dL Hematocrit 24.4 % Mean Corpuscular Volume 88 fL Mean Corpuscular Hemoglobin 29 pg Mean Corpuscular Hemoglobin Concent 33 g/dL Red Cell Distribution Width 18.7 % Platelet Count 348 x10^3/uL Sodium Level 140 mmol/L Potassium Level 4.3 mmol/L Chloride Level 99 mmol/L Carbon Dioxide Level 36 mmol/L Anion Gap 5 Blood Urea Nitrogen 22 mg/dL Creatinine 0.6 mg/dL Estimated GFR (Cockcroft-Gault) 106.3 Glucose Level 126 mg/dL Calcium Level 9.3 mg/dL Phosphorus Level 3.7 mg/dL Magnesium Level 2.1 mg/dL BLOOD CULTURE Final NO GROWTH AFTER 5 DAYS PE: GEN: NAD LUNGS: trach collar HEART: RRR ABD: soft, NG bilious NEURO/PSYCH: A & O 3 A/P: Gallstone pancreatitis, MOSF -- Continue support. Hemodynamically unstable?: No Is patient in severe pain?: No Is NPO status required?: Yes CYNDEE FALCON September 09, 2019 10:39
--- NOTE | 2019-09-09 11:05 | PDOC ---
PROGRESS NOTES Chief Complaint Chief Complaint Acute hypoxic Respiratory failure requiring mechanical ventilation (now extubated for several days but still with tracheostomy) Tracheostomy bilateral pleural effusions/pulm edema Sepsis Severe Acute gallstone pancreatitis (not a surgical candidate at this time) with necrosis Acute kidney failure now requiring dialysis Salpingitis Gallstones (Calculus of gallbladder with acute cholecystitis without obstruction) HTN Leukocytosis Hypoxia Uterine fibroid Intractable pain Intractable nausea Covid 19 negative. Acute on chronic anemia EEG: No seizure activityFever - better currently - intermittent could be from underlying pancreatitis blood cults 08/21 - neg so far ? Ileus with vomiting Abd distention - U/S and CT reviewed s/p 0.4 L of opaque, debris-containing ascites was removed 08/23 Acute pancreatitis with persistent necrosis - 08/14 status post KAYLIN drain placement + C paropsilosis. s/p additional drains 08/25 Anemia - S/p PRBCs Cholelithiasis with thickening of the gallbladder wall. Leucocytosis improving JUANA, hyperkalemia, Metabolic acidosis off dialysis Acute hypoxic resp failure ,bilateral pleural effusion and atelectasis hypocalcemia Prediabetes HTN s/p trach ESRD on HD Hyperglycemia History of Present Illness History of Present Illness 09/08,. she doesnt want to wear her passy-fantasma valve, discussed str and plan with her. speech following, needs swallow study, but needs to wear her valve longer, cont current able to walk some, walker 09/07 stronger, better, we discussed better oral care she would like to try swallow study, wants to try to eat, speech is following 09/07/2019 She remains in the ICU sitting up and working with OT, getting better if limit pain meds, may do better off the vent, Nurses trying to suction her, that is also improved, Chart reviewed 09/06/2019 Patient seen and examined in the ICU She had an episode yesterday of tachycardia and severe agitation we gave her some Ativan After that she seemed to have stroke symptoms but now that the Ativan has wore off her stroke symptoms have resolved She is on IV meropenem and daptomycin and micafungin Chart reviewed Discussed with RN Patient is still critically ill BRIEF OPERATIVE NOTE Pre-Op Diagnosis Pancreatitis with pseudocysts, suspected infection Post-Op Diagnosis same Procedure Performed CT abdominal Drains x 3 Surgeon Tesfaye Anesthesia Type: Conscious Sedation Findings 3 abdominal drains, 14F, with turbid pancreatic fluid and necrotic debris in each. Complications No immediate 08/26: Patient today somewhat restless and having bilious secretions from ET tube, imaging studies ordered, discussed with [employer] consultant. Pretty poor prognosis, hopefully is not a fistula, poor surgical candidate. 08/27: Imaging with no acute events, she seems more stable today compared to yesterday. Encouraged as much activity as possible patient at high risk for severe depression. Vitals Vitals Vital Signs Date Time Temp Pulse Resp B/P (MAP) Pulse Ox O2 Delivery O2 Flow Rate FiO2 09/09/19 10:41 28 98 Tracheal Collar 8.0 09/09/19 10:00 101 146/66 (92) 09/09/19 08:00 99.2 99.2 Physical Exam Physical Exam GENERAL: Alert, awake trying to talk but has a lot of secretions, remains confused HEENT: oral cavity dry, NGT NECK: Trach with speaking valve LUNGS: no rhonchi HEART: S1, S2, regular ABDOMEN: mod Distended, hypoactive BS, tender, + drainsx1 : Lind (08/01) EXTREMITIES: Generalized edema, improving, no cyanosis, SCDs bilaterally SKIN: Warm and dry. No generalized rash. JOINER APPRENTICE: Very weak PICC(08/17) clean General: No acute distress Heart: Regular rate, Normal S1, Normal S2, No murmurs, Gallops Lungs: Wheezing, Other (decrease bs) Abdomen: Soft, Other (drains in place) Extremities: No clubbing, No cyanosis, No edema, Normal pulses, No tenderness/swelling Skin: Other (warm, dry) Labs LABS Laboratory Tests Test 09/08/19 12:06 09/09/19 00:39 09/09/19 06:04 09/09/19 08:40 Glucose (Fingerstick) 192 mg/dL (70-99) 149 mg/dL (70-99) 164 mg/dL (70-99) White Blood Count 8.8 x10^3/uL (4.0-11.0) Red Blood Count 2.77 x10^6/uL (3.50-5.40) Hemoglobin 7.9 g/dL (12.0-15.5) Hematocrit 24.4 % (36.0-47.0) Mean Corpuscular Volume 88 fL (79-100) Mean Corpuscular Hemoglobin 29 pg (25-35) Mean Corpuscular Hemoglobin Concent 33 g/dL (31-37) Red Cell Distribution Width 18.7 % (11.5-14.5) Platelet Count 348 x10^3/uL (140-400) Sodium Level 140 mmol/L (136-145) Potassium Level 4.3 mmol/L (3.5-5.1) Chloride Level 99 mmol/L (98-107) Carbon Dioxide Level 36 mmol/L (21-32) Anion Gap 5 (6-14) Blood Urea Nitrogen 22 mg/dL (7-20) Creatinine 0.6 mg/dL (0.6-1.0) Estimated GFR (Cockcroft-Gault) 106.3 Glucose Level 126 mg/dL (70-99) Calcium Level 9.3 mg/dL (8.5-10.1) Phosphorus Level 3.7 mg/dL (2.6-4.7) Magnesium Level 2.1 mg/dL (1.8-2.4) Assessment and Plan Assessmemt and Plan Problems Medical Problems: (1) Acute pancreatitis Status: Acute (2) Cholelithiasis Status: Acute Comment Review of Relevant I have reviewed the following items kolby (where applicable) has been applied. Labs Laboratory Tests Test 09/07/19 12:31 09/07/19 16:28 09/08/19 00:44 09/08/19 06:10 Glucose (Fingerstick) 258 mg/dL (70-99) 141 mg/dL (70-99) 165 mg/dL (70-99) White Blood Count 8.3 x10^3/uL (4.0-11.0) Red Blood Count 2.72 x10^6/uL (3.50-5.40) Hemoglobin 7.8 g/dL (12.0-15.5) Hematocrit 23.8 % (36.0-47.0) Mean Corpuscular Volume 87 fL (79-100) Mean Corpuscular Hemoglobin 29 pg (25-35) Mean Corpuscular Hemoglobin Concent 33 g/dL (31-37) Red Cell Distribution Width 18.2 % (11.5-14.5) Platelet Count 380 x10^3/uL (140-400) Sodium Level 139 mmol/L (136-145) Potassium Level 4.0 mmol/L (3.5-5.1) Chloride Level 100 mmol/L (98-107) Carbon Dioxide Level 39 mmol/L (21-32) Anion Gap 0 (6-14) Blood Urea Nitrogen 24 mg/dL (7-20) Creatinine 0.7 mg/dL (0.6-1.0) Estimated GFR (Cockcroft-Gault) 88.9 Glucose Level 118 mg/dL (70-99) Calcium Level 8.6 mg/dL (8.5-10.1) Phosphorus Level 3.0 mg/dL (2.6-4.7) Magnesium Level 1.9 mg/dL (1.8-2.4) Test 09/08/19 06:22 09/08/19 12:06 09/09/19 00:39 09/09/19 06:04 Glucose (Fingerstick) 122 mg/dL (70-99) 192 mg/dL (70-99) 149 mg/dL (70-99) 164 mg/dL (70-99) Test 09/09/19 08:40 White Blood Count 8.8 x10^3/uL (4.0-11.0) Red Blood Count 2.77 x10^6/uL (3.50-5.40) Hemoglobin 7.9 g/dL (12.0-15.5) Hematocrit 24.4 % (36.0-47.0) Mean Corpuscular Volume 88 fL (79-100) Mean Corpuscular Hemoglobin 29 pg (25-35) Mean Corpuscular Hemoglobin Concent 33 g/dL (31-37) Red Cell Distribution Width 18.7 % (11.5-14.5) Platelet Count 348 x10^3/uL (140-400) Sodium Level 140 mmol/L (136-145) Potassium Level 4.3 mmol/L (3.5-5.1) Chloride Level 99 mmol/L (98-107) Carbon Dioxide Level 36 mmol/L (21-32) Anion Gap 5 (6-14) Blood Urea Nitrogen 22 mg/dL (7-20) Creatinine 0.6 mg/dL (0.6-1.0) Estimated GFR (Cockcroft-Gault) 106.3 Glucose Level 126 mg/dL (70-99) Calcium Level 9.3 mg/dL (8.5-10.1) Phosphorus Level 3.7 mg/dL (2.6-4.7) Magnesium Level 2.1 mg/dL (1.8-2.4) Laboratory Tests Test 09/08/19 12:06 09/09/19 00:39 09/09/19 06:04 09/09/19 08:40 Glucose (Fingerstick) 192 mg/dL (70-99) 149 mg/dL (70-99) 164 mg/dL (70-99) White Blood Count 8.8 x10^3/uL (4.0-11.0) Red Blood Count 2.77 x10^6/uL (3.50-5.40) Hemoglobin 7.9 g/dL (12.0-15.5) Hematocrit 24.4 % (36.0-47.0) Mean Corpuscular Volume 88 fL (79-100) Mean Corpuscular Hemoglobin 29 pg (25-35) Mean Corpuscular Hemoglobin Concent 33 g/dL (31-37) Red Cell Distribution Width 18.7 % (11.5-14.5) Platelet Count 348 x10^3/uL (140-400) Sodium Level 140 mmol/L (136-145) Potassium Level 4.3 mmol/L (3.5-5.1) Chloride Level 99 mmol/L (98-107) Carbon Dioxide Level 36 mmol/L (21-32) Anion Gap 5 (6-14) Blood Urea Nitrogen 22 mg/dL (7-20) Creatinine 0.6 mg/dL (0.6-1.0) Estimated GFR (Cockcroft-Gault) 106.3 Glucose Level 126 mg/dL (70-99) Calcium Level 9.3 mg/dL (8.5-10.1) Phosphorus Level 3.7 mg/dL (2.6-4.7) Magnesium Level 2.1 mg/dL (1.8-2.4) Microbiology 09/04/19 Blood Culture - Final, Complete NO GROWTH AFTER 5 DAYS 08/24/19 Fungal Culture - Final, Complete 08/24/19 Fungal Culture Result 1 - Final, Complete 08/18/19 Aerobic Culture - Final, Complete 08/18/19 Aerobic Culture Result 1 (ALEXANDRA) - Final, Complete 08/18/19 Gram Stain - Final, Complete 08/18/19 Gram Stain Result 1 (ALEXANDRA) - Final, Complete 08/18/19 Gram Stain Result 2 (ALEXANDRA) - Final, Complete 07/31/19 Urine Culture - Final, Complete 07/31/19 Urine Culture Result 1 (ALEXANDRA) - Final, Complete Medications Current Medications Sodium Chloride 1,000 ml @ 1,000 mls/hr Q1H IV Last administered on 07/04/19at 03:00; Start 07/04/19 at 03:00; Stop 07/04/19 at 03:59; Status DC Ondansetron HCl (Zofran) 4 mg 1X ONCE IVP Last administered on 07/04/19at 03:27; Start 07/04/19 at 03:00; Stop 07/04/19 at 03:01; Status DC Morphine Sulfate (Morphine Sulfate) 4 mg 1X ONCE IV ; Start 07/04/19 at 03:00; Stop 07/04/19 at 03:01; Status Cancel Ketorolac Tromethamine (Toradol 30mg Vial) 30 mg 1X ONCE IV Last administered on 07/04/19at 02:54; Start 07/04/19 at 03:00; Stop 07/04/19 at 03:01; Status DC Fentanyl Citrate (Fentanyl 2ml Vial) 25 mcg 1X ONCE IVP Last administered on 07/04/19at 03:23; Start 07/04/19 at 03:30; Stop 07/04/19 at 03:31; Status DC Fentanyl Citrate (Fentanyl 2ml Vial) 100 mcg STK-MED ONCE .ROUTE ; Start 07/04/19 at 03:18; Stop 07/04/19 at 03:18; Status DC Iohexol (Omnipaque 350 Mg/ml) 90 ml 1X ONCE IV Last administered on 07/04/19at 03:25; Start 07/04/19 at 03:30; Stop 07/04/19 at 03:31; Status DC Info (CONTRAST GIVEN -- Rx MONITORING) 1 each PRN DAILY PRN MC SEE COMMENTS; Start 07/04/19 at 03:30; Stop 07/06/19 at 03:29; Status DC Hydromorphone HCl (Dilaudid) 0.5 mg 1X ONCE IV Last administered on 07/04/19at 03:55; Start 07/04/19 at 04:30; Stop 07/04/19 at 04:32; Status DC Ondansetron HCl (Zofran) 4 mg PRN Q8HRS PRN IV NAUSEA/VOMITING 1ST CHOICE; Start 07/04/19 at 05:00; Stop 07/04/19 at 09:27; Status DC Morphine Sulfate (Morphine Sulfate) 2 mg PRN Q2HR PRN IV SEVERE PAIN 7-10 Last administered on 07/05/19at 12:26; Start 07/04/19 at 05:00; Stop 07/05/19 at 14:15; Status DC Sodium Chloride 1,000 ml @ 125 mls/hr Q8H IV Last administered on 07/04/19at 20:56; Start 07/04/19 at 05:00; Stop 07/05/19 at 04:59; Status DC Hydromorphone HCl (Dilaudid) 0.5 mg PRN Q3HRS PRN IV SEVERE PAIN 7-10 Last administered on 07/05/19at 10:06; Start 07/04/19 at 05:00; Stop 07/05/19 at 12:01; Status DC Piperacillin Sod/ Tazobactam Sod 4.5 gm/Sodium Chloride 100 ml @ 200 mls/hr 1X ONCE IV Last administered on 07/04/19at 05:44; Start 07/04/19 at 06:00; Stop 07/04/19 at 06:29; Status DC Ondansetron HCl (Zofran) 4 mg PRN Q4HRS PRN IV NAUSEA/VOMITING 1ST CHOICE Last administered on 09/06/19at 12:40; Start 07/04/19 at 09:30 Insulin Human Lispro (HumaLOG) 0-9 UNITS Q6HRS SQ Last administered on 09/09/19at 06:06; Start 07/04/19 at 09:30 Dextrose (Dextrose 50%-Water Syringe) 12.5 gm PRN Q15MIN PRN IV SEE COMMENTS; Start 07/04/19 at 09:30 Pantoprazole Sodium (PROTONIX VIAL for IV PUSH) 40 mg DAILYAC IVP Last administered on 09/09/19at 08:32; Start 07/04/19 at 11:30 Prochlorperazine Edisylate (Compazine) 10 mg PRN Q6HRS PRN IV NAUSEA/VOMITING, 2nd CHOICE Last administered on 09/01/19at 06:11; Start 07/04/19 at 17:45 Atenolol (Tenormin) 100 mg DAILY PO ; Start 07/05/19 at 09:00; Stop 07/04/19 at 20:08; Status DC Metoprolol Tartrate (Lopressor Vial) 2.5 mg Q6HRS IVP Last administered on 07/05/19at 05:51; Start 07/04/19 at 20:15; Stop 07/05/19 at 10:02; Status DC Metoprolol Tartrate (Lopressor Vial) 5 mg Q6HRS IVP Last administered on 07/14/19at 00:12; Start 07/05/19 at 10:15; Stop 07/16/19 at 08:48; Status DC Hydromorphone HCl (Dilaudid) 1 mg PRN Q3HRS PRN IV SEVERE PAIN 7-10 Last administered on 07/11/19at 05:13; Start 07/05/19 at 12:00; Stop 07/19/19 at 00:25; Status DC Lidocaine HCl (Buffered Lidocaine 1%) 3 ml STK-MED ONCE .ROUTE ; Start 07/05/19 at 12:55; Stop 07/05/19 at 12:56; Status DC Albumin Human 500 ml @ 125 mls/hr 1X ONCE IV Last administered on 07/05/19at 14:33; Start 07/05/19 at 14:30; Stop 07/05/19 at 18:32; Status DC Norepinephrine Bitartrate 8 mg/ Dextrose 258 ml @ 17.299 mls/ hr CONT PRN IV PER PROTOCOL Last administered on 08/02/19at 12:48; Start 07/05/19 at 15:30; Stop 08/05/19 at 09:19; Status DC Sodium Chloride 1,000 ml @ 125 mls/hr Q8H IV Last administered on 07/05/19at 21:04; Start 07/05/19 at 16:00; Stop 07/06/19 at 02:42; Status DC Albumin Human 500 ml @ 125 mls/hr PRN BID PRN IV After every 2L NSS & BP < 90mm Last administered on 07/20/19at 14:21; Start 07/05/19 at 16:00 Iohexol (Omnipaque 300 Mg/ml) 60 ml 1X ONCE IV Last administered on 07/05/19at 17:20; Start 07/05/19 at 17:00; Stop 07/05/19 at 17:01; Status DC Info (CONTRAST GIVEN -- Rx MONITORING) 1 each PRN DAILY PRN MC SEE COMMENTS; Start 07/05/19 at 17:00; Stop 07/07/19 at 16:59; Status DC Meropenem 1 gm/ Sodium Chloride 100 ml @ 200 mls/hr Q8HRS IV Last administered on 07/06/19at 05:45; Start 07/05/19 at 20:00; Stop 07/06/19 at 08:48; Status DC Furosemide (Lasix) 40 mg 1X ONCE IVP Last administered on 07/05/19at 22:12; Start 07/05/19 at 22:30; Stop 07/05/19 at 22:31; Status DC Calcium Chloride 1000 mg/Sodium Chloride 110 ml @ 220 mls/hr 1X ONCE IV Last administered on 07/05/19at 22:11; Start 07/05/19 at 22:30; Stop 07/05/19 at 22:59; Status DC Albuterol Sulfate (Ventolin Neb Soln) 2.5 mg 1X ONCE NEB Last administered on 07/06/19at 00:56; Start 07/05/19 at 22:30; Stop 07/05/19 at 22:31; Status DC Insulin Human Regular (HumuLIN R VIAL) 5 unit 1X ONCE IV Last administered on 07/05/19at 22:14; Start 07/05/19 at 22:30; Stop 07/05/19 at 22:31; Status DC Magnesium Sulfate 50 ml @ 25 mls/hr 1X ONCE IV Last administered on 07/06/19at 02:57; Start 07/06/19 at 03:00; Stop 07/06/19 at 04:59; Status DC Calcium Gluconate 1000 mg/Sodium Chloride 110 ml @ 220 mls/hr 1X ONCE IV Last administered on 07/06/19at 02:46; Start 07/06/19 at 03:00; Stop 07/06/19 at 03:29; Status DC Sodium Chloride 1,000 ml @ 200 mls/hr Q5H IV Last administered on 07/06/19at 02:46; Start 07/06/19 at 03:00; Stop 07/06/19 at 10:21; Status DC Calcium Gluconate 1000 mg/Sodium Chloride 110 ml @ 220 mls/hr 1X ONCE IV Last administered on 07/06/19at 03:21; Start 07/06/19 at 03:30; Stop 07/06/19 at 03:59; Status DC Sodium Bicarbonate 50 meq/Sodium Chloride 1,050 ml @ 75 mls/hr Q14H IV Last administered on 07/10/19at 21:10; Start 07/06/19 at 07:30; Stop 07/11/19 at 10:28; Status DC Calcium Gluconate 2000 mg/Sodium Chloride 120 ml @ 220 mls/hr 1X ONCE IV Last administered on 07/06/19at 09:05; Start 07/06/19 at 07:30; Stop 07/06/19 at 08:02; Status DC Lidocaine HCl (Xylocaine-Mpf 1% 2ml Vial) 2 ml STK-MED ONCE .ROUTE ; Start 07/06/19 at 08:47; Stop 07/06/19 at 08:47; Status DC Meropenem 500 mg/ Sodium Chloride 50 ml @ 100 mls/hr Q12HR IV Last administered on 07/11/19at 21:01; Start 07/06/19 at 18:00; Stop 07/12/19 at 07:58; Status DC Lidocaine HCl (Buffered Lidocaine 1%) 3 ml STK-MED ONCE .ROUTE ; Start 07/06/19 at 09:46; Stop 07/06/19 at 09:46; Status DC Lidocaine HCl (Buffered Lidocaine 1%) 6 ml 1X ONCE INJ Last administered on 07/06/19at 10:26; Start 07/06/19 at 10:15; Stop 07/06/19 at 10:16; Status DC Info (Tpn Per Pharmacy) 1 each PRN DAILY PRN MC SEE COMMENTS Last administered on 09/08/19at 11:11; Start 07/06/19 at 12:00 Sodium Chloride 1,000 ml @ 1,000 mls/hr Q1H PRN IV hypotension; Start 07/06/19 at 12:07; Stop 07/06/19 at 18:06; Status DC Diphenhydramine HCl (Benadryl) 25 mg 1X PRN PRN IV ITCHING; Start 07/06/19 at 12:15; Stop 07/07/19 at 12:14; Status DC Diphenhydramine HCl (Benadryl) 25 mg 1X PRN PRN IV ITCHING; Start 07/06/19 at 12:15; Stop 07/07/19 at 12:14; Status DC Sodium Chloride 1,000 ml @ 400 mls/hr Q2H30M PRN IV PATENCY; Start 07/06/19 at 12:07; Stop 07/07/19 at 00:06; Status DC Info (PHARMACY MONITORING -- do not chart) 1 each PRN DAILY PRN MC SEE CO MMENTS; Start 07/06/19 at 12:15; Stop 07/08/19 at 08:13; Status DC Sodium Chloride 90 meq/Calcium Gluconate 10 meq/ Multivitamins 10 ml/Chromium/ Copper/Manganese/ Seleni/Zn 1 ml/ Total Parenteral Nutrition/Amino Acids/Dextrose/ Fat Emulsion Intravenous 55.005 ml @ 2.292 mls/hr TPN CONT IV ; Start 07/06/19 at 22:00; Stop 07/06/19 at 12:33; Status DC Info (Tpn Per Pharmacy) 1 each PRN DAILY PRN MC SEE COMMENTS; Start 07/06/19 at 12:30; Status UNV Sodium Chloride 90 meq/Calcium Gluconate 10 meq/ Multivitamins 10 ml/Chromium/ Copper/Manganese/ Seleni/Zn 0.5 ml/ Total Parenteral Nutrition/Amino Acids/Dextrose/ Fat Emulsion Intravenous 1,512 ml @ 63 mls/hr TPN CONT IV Last administered on 07/06/19at 22:06; Start 07/06/19 at 22:00; Stop 07/07/19 at 21:59; Status DC Calcium Carbonate/ Glycine (Tums) 500 mg PRN AFTMEALHC PRN PO INDIGESTION; Start 07/06/19 at 17:45; Stop 08/31/19 at 10:25; Status DC Calcium Gluconate (Calcium Gluconate) 2,000 mg 1X ONCE IVP Last administered on 07/07/19at 02:19; Start 07/07/19 at 02:15; Stop 07/07/19 at 02:16; Status DC Calcium Chloride 3000 mg/Sodium Chloride 1,030 ml @ 50 mls/hr [id number] IV Last administered on 07/09/19at 02:17; Start 07/07/19 at 08:00; Stop 07/09/19 at 15:23; Status DC Lorazepam (Ativan Inj) 1 mg PRN Q4HRS PRN IVP ANXIETY / AGITATION, 2nd choic Last administered on 08/05/19at 03:51; Start 07/07/19 at 09:00; Stop 08/05/19 at 09:19; Status DC Sodium Chloride 1,000 ml @ 1,000 mls/hr Q1H PRN IV hypotension; Start 07/07/19 at 08:56; Stop 07/07/19 at 14:55; Status DC Albumin Human 200 ml @ 200 mls/hr 1X PRN PRN IV Hypotension; Start 07/07/19 at 09:00; Stop 07/07/19 at 14:59; Status DC Diphenhydramine HCl (Benadryl) 25 mg 1X PRN PRN IV ITCHING; Start 07/07/19 at 09:00; Stop 07/08/19 at 08:59; Status DC Diphenhydramine HCl (Benadryl) 25 mg 1X PRN PRN IV ITCHING; Start 07/07/19 at 09:00; Stop 07/08/19 at 08:59; Status DC Sodium Chloride 1,000 ml @ 400 mls/hr Q2H30M PRN IV PATENCY; Start 07/07/19 at 08:56; Stop 07/07/19 at 20:55; Status DC Info (PHARMACY MONITORING -- do not chart) 1 each PRN DAILY PRN MC SEE COMMENTS; Start 07/07/19 at 09:00; Status UNV Info (PHARMACY MONITORING -- do not chart) 1 each PRN DAILY PRN MC SEE COMMENTS; Start 07/07/19 at 09:00; Stop 07/08/19 at 08:13; Status DC Digoxin (Lanoxin) 500 mcg 1X ONCE IV Last administered on 07/07/19at 10:04; Start 07/07/19 at 10:00; Stop 07/07/19 at 10:01; Status DC Digoxin (Lanoxin) 125 mcg 1X ONCE IV Last administered on 07/07/19at 17:10; Start 07/07/19 at 18:00; Stop 07/07/19 at 18:01; Status DC Magnesium Sulfate 100 ml @ 25 mls/hr 1X ONCE IV Last administered on 07/07/19at 12:48; Start 07/07/19 at 13:00; Stop 07/07/19 at 16:59; Status DC Sodium Chloride 90 meq/Magnesium Sulfate 10 meq/ Calcium Gluconate 20 meq/ Multivitamins 10 ml/Chromium/ Copper/Manganese/ Seleni/Zn 0.5 ml/ Total Parenteral Nutrition/Amino Acids/Dextrose/ Fat Emulsion Intravenous 1,512 ml @ 63 mls/hr TPN CONT IV Last administered on 07/07/19at 22:25; Start 07/07/19 at 22:00; Stop 07/08/19 at 21:59; Status DC Sodium Chloride 1,000 ml @ 1,000 mls/hr Q1H PRN IV hypotension; Start 07/08/19 at 08:05; Stop 07/08/19 at 14:04; Status DC Albumin Human 200 ml @ 200 mls/hr 1X ONCE IV Last administered on 07/08/19at 08:57; Start 07/08/19 at 08:15; Stop 07/08/19 at 09:14; Status DC Diphenhydramine HCl (Benadryl) 25 mg 1X PRN PRN IV ITCHING; Start 07/08/19 at 08:15; Stop 07/09/19 at 08:14; Status DC Diphenhydramine HCl (Benadryl) 25 mg 1X PRN PRN IV ITCHING; Start 07/08/19 at 08:15; Stop 07/09/19 at 08:14; Status DC Sodium Chloride 1,000 ml @ 400 mls/hr Q2H30M PRN IV PATENCY; Start 07/08/19 at 08:05; Stop 07/08/19 at 20:04; Status DC Info (PHARMACY MONITORING -- do not chart) 1 each PRN DAILY PRN MC SEE COMMENTS; Start 07/08/19 at 08:15; Stop 07/12/19 at 07:57; Status DC Sodium Chloride 90 meq/Potassium Chloride 15 meq/ Potassium Phosphate 10 mmol/ Magnesium Sulfate 10 meq/Calcium Gluconate 20 meq/ Multivitamins 10 ml/Chromium/ Copper/Manganese/ Seleni/Zn 0.5 ml/ Total Parenteral Nutrition/Amino Acids/Dextrose/ Fat Emulsion Intravenous 1,512 ml @ 63 mls/hr TPN CONT IV Last administered on 07/08/19at 21:01; Start 07/08/19 at 22:00; Stop 07/09/19 at 21:59; Status DC Potassium Chloride/Water 100 ml @ 100 mls/hr 1X ONCE IV Last administered on 07/08/19at 14:09; Start 07/08/19 at 14:00; Stop 07/08/19 at 14:59; Status DC Benzocaine (Hurricaine One) 1 spray 1X ONCE MM Last administered on 07/08/19at 16:38; Start 07/08/19 at 14:30; Stop 07/08/19 at 14:31; Status DC Lidocaine HCl (Glydo (Lidocaine) Jelly) 1 ramu 1X ONCE MM Last administered on 07/08/19at 16:38; Start 07/08/19 at 14:30; Stop 07/08/19 at 14:31; Status DC Linezolid/Dextrose 300 ml @ 300 mls/hr Q12HR IV Last administered on 07/14/19at 21:04; Start 07/08/19 at 20:00; Stop 07/15/19 at 07:50; Status DC Acetaminophen (Tylenol) 650 mg PRN Q6HRS PRN PO MILD PAIN / TEMP; Start 07/09/19 at 03:30; Stop 07/09/19 at 03:36; Status DC Acetaminophen (Tylenol) 650 mg PRN Q6HRS PRN PEG MILD PAIN / TEMP Last administered on 08/04/19at 19:56; Start 07/09/19 at 03:36; Stop 08/31/19 at 10:25; Status DC Sodium Chloride 1,000 ml @ 1,000 mls/hr Q1H PRN IV hypotension; Start 07/09/19 at 07:50; Stop 07/09/19 at 13:49; Status DC Albumin Human 200 ml @ 200 mls/hr 1X PRN PRN IV Hypotension; Start 07/09/19 at 08:00; Stop 07/09/19 at 13:59; Status DC Sodium Chloride (Normal Saline Flush) 10 ml 1X PRN PRN IV AP catheter pack; Start 07/09/19 at 08:00; Stop 07/10/19 at 07:59; Status DC Sodium Chloride (Normal Saline Flush) 10 ml 1X PRN PRN IV SILVICULTURIST catheter pack; Start 07/09/19 at 08:00; Stop 07/10/19 at 07:59; Status DC Sodium Chloride 1,000 ml @ 400 mls/hr Q2H30M PRN IV PATENCY; Start 07/09/19 at 07:50; Stop 07/09/19 at 19:49; Status DC Info (PHARMACY MONITORING -- do not chart) 1 each PRN DAILY PRN MC SEE COMMENTS; Start 07/09/19 at 08:00; Status UNV Info (PHARMACY MONITORING -- do not chart) 1 each PRN DAILY PRN MC SEE COMMENTS; Start 07/09/19 at 08:00; Stop 07/11/19 at 08:25; Status DC Sodium Chloride 90 meq/Potassium Chloride 15 meq/ Potassium Phosphate 10 mmol/ Magnesium Sulfate 10 meq/Calcium Gluconate 20 meq/ Multivitamins 10 ml/Chromium/ Copper/Manganese/ Seleni/Zn 0.5 ml/ Total Parenteral Nutrition/Amino Acids/Dextrose/ Fat Emulsion Intravenous 1,512 ml @ 63 mls/hr TPN CONT IV Last administered on 07/09/19at 20:57; Start 07/09/19 at 22:00; Stop 07/10/19 at 21:59; Status DC Sodium Chloride 90 meq/Potassium Chloride 15 meq/ Potassium Phosphate 15 mmol/ Magnesium Sulfate 10 meq/Calcium Gluconate 20 meq/ Multivitamins 10 ml/Chromium/ Copper/Manganese/ Seleni/Zn 0.5 ml/ Total Parenteral Nutrition/Amino Acids/Dextrose/ Fat Emulsion Intravenous 1,512 ml @ 63 mls/hr TPN CONT IV ; Start 07/10/19 at 22:00; Stop 07/10/19 at 14:16; Status DC Sodium Chloride 90 meq/Potassium Chloride 15 meq/ Potassium Phosphate 15 mmol/ Magnesium Sulfate 10 meq/Calcium Gluconate 20 meq/ Multivitamins 10 ml/Chromium/ Copper/Manganese/ Seleni/Zn 0.5 ml/ Total Parenteral Nutrition/Amino Acids/Dextrose/ Fat Emulsion Intravenous 1,200 ml @ 50 mls/hr TPN CONT IV ; Start 07/10/19 at 22:00; Stop 07/10/19 at 14:17; Status DC Sodium Chloride 90 meq/Potassium Chloride 15 meq/ Potassium Phosphate 10 mmol/ Magnesium Sulfate 10 meq/Calcium Gluconate 20 meq/ Multivitamins 10 ml/Chromium/ Copper/Manganese/ Seleni/Zn 0.5 ml/ Total Parenteral Nutrition/Amino Ac ids/Dextrose/ Fat Emulsion Intravenous 1,200 ml @ 50 mls/hr TPN CONT IV Last administered on 07/10/19at 23:29; Start 07/10/19 at 22:00; Stop 07/11/19 at 21:59; Status DC Sodium Chloride 1,000 ml @ 1,000 mls/hr Q1H PRN IV hypotension; Start 07/11/19 at 07:28; Stop 07/11/19 at 13:27; Status DC Albumin Human 200 ml @ 200 mls/hr 1X ONCE IV Last administered on 07/11/19at 08:51; Start 07/11/19 at 07:30; Stop 07/11/19 at 08:29; Status DC Diphenhydramine HCl (Benadryl) 25 mg 1X PRN PRN IV ITCHING; Start 07/11/19 at 07:30; Stop 07/12/19 at 07:29; Status DC Diphenhydramine HCl (Benadryl) 25 mg 1X PRN PRN IV ITCHING; Start 07/11/19 at 07:30; Stop 07/12/19 at 07:29; Status DC Sodium Chloride 1,000 ml @ 400 mls/hr Q2H30M PRN IV PATENCY; Start 07/11/19 at 07:28; Stop 07/11/19 at 19:27; Status DC Info (PHARMACY MONITORING -- do not chart) 1 each PRN DAILY PRN MC SEE COMMENTS; Start 07/11/19 at 07:30; Stop 07/22/19 at 13:01; Status DC Metronidazole 100 ml @ 100 mls/hr Q6HRS IV Last administered on 07/27/19at 06:26; Start 07/11/19 at 08:30; Stop 07/27/19 at 09:58; Status DC Micafungin Sodium 100 mg/Dextrose 100 ml @ 100 mls/hr Q24H IV Last administered on 08/18/19at 08:18; Start 07/11/19 at 09:00; Stop 08/18/19 at 20:58; Status DC Propofol 0 ml @ As Directed STK-MED ONCE IV ; Start 07/11/19 at 07:53; Stop 07/11/19 at 07:53; Status DC Etomidate (Amidate) 20 mg STK-MED ONCE IV ; Start 07/11/19 at 07:53; Stop 07/11/19 at 07:54; Status DC Midazolam HCl (Versed) 5 mg STK-MED ONCE .ROUTE ; Start 07/11/19 at 07:57; Stop 07/11/19 at 07:57; Status DC Fentanyl Citrate 30 ml @ 0 mls/hr CONT PRN IV SEE PROTOCOL Last administered on 08/05/19at 06:12; Start 07/11/19 at 08:15; Stop 08/05/19 at 09:19; Status DC Artificial Tears (Artificial Tears) 1 drop PRN Q1HR PRN OU DRY EYE, 1st choice; Start 07/11/19 at 08:15; Stop 08/17/19 at 05:31; Status DC Midazolam HCl 50 mg/Sodium Chloride 50 ml @ 0 mls/hr CONT PRN IV SEE PROTOCOL Last administered on 07/14/19at 22:39; Start 07/11/19 at 08:15; Stop 07/16/19 at 15:59; Status DC Etomidate (Amidate) 8 mg 1X ONCE IV Last administered on 07/11/19at 08:33; Start 07/11/19 at 08:30; Stop 07/11/19 at 08:31; Status DC Succinylcholine Chloride (Anectine) 120 mg 1X ONCE IV Last administered on 07/11/19at 08:34; Start 07/11/19 at 08:30; Stop 07/11/19 at 08:31; Status DC Midazolam HCl (Versed) 5 mg 1X ONCE IV ; Start 07/11/19 at 08:30; Stop 07/11/19 at 08:31; Status DC Potassium Chloride 15 meq/ Bicarbonate Dialysis Soln w/ out KCl 5,007.5 ml @ 1,000 mls/ hr Q5H1M IV Last administered on 07/12/19at 11:11; Start 07/11/19 at 12:00; Stop 07/12/19 at 11:15; Status DC Potassium Chloride 15 meq/ Bicarbonate Dialysis Soln w/ out KCl 5,007.5 ml @ 1,000 mls/ hr Q5H1M IV Last administered on 07/12/19at 11:12; Start 07/11/19 at 12:00; Stop 07/12/19 at 11:17; Status DC Potassium Chloride 15 meq/ Bicarbonate Dialysis Soln w/ out KCl 5,007.5 ml @ 1,000 mls/ hr Q5H1M IV Last administered on 07/12/19at 11:11; Start 07/11/19 at 12:00; Stop 07/12/19 at 11:19; Status DC Sodium Chloride 90 meq/Potassium Chloride 15 meq/ Potassium Phosphate 10 mmol/ Magnesium Sulfate 10 meq/Calcium Gluconate 20 meq/ Multivitamins 10 ml/Chromium/ Copper/Manganese/ Seleni/Zn 0.5 ml/ Total Parenteral Nutrition/Amino Acids/Dextrose/ Fat Emulsion Intravenous 1,400 ml @ 58.333 mls/ hr TPN CONT IV Last administered on 07/11/19at 21:42; Start 07/11/19 at 22:00; Stop 07/12/19 at 21:59; Status DC Heparin Sodium (Porcine) (Heparin Sodium) 5,000 unit Q8HRS SQ Last administered on 07/16/19at 05:55; Start 07/11/19 at 15:00; Stop 07/16/19 at 13:28; Status DC Meropenem 500 mg/ Sodium Chloride 50 ml @ 100 mls/hr Q6HRS IV Last administered on 07/13/19at 06:00; Start 07/12/19 at 09:00; Stop 07/13/19 at 07:29; Status DC Potassium Phosphate 20 mmol/ Sodium Chloride 106.6667 ml @ 51.667 m... 1X ONCE IV Last administered on 07/12/19at 11:22; Start 07/12/19 at 10:15; Stop 07/12/19 at 12:18; Status DC Acetaminophen (Tylenol Supp) 650 mg PRN Q6HRS PRN SD MILD PAIN / TEMP > 100.3'F Last administered on 08/23/19at 09:12; Start 07/12/19 at 10:30 Potassium Chloride/Water 100 ml @ 100 mls/hr Q1H IV Last administered on 07/12/19at 12:12; Start 07/12/19 at 11:00; Stop 07/12/19 at 12:59; Status DC Potassium Chloride 20 meq/ Bicarbonate Dialysis Soln w/ out KCl 5,010 ml @ 1,000 mls/hr Q5H1M IV Last administered on 07/13/19at 08:48; Start 07/12/19 at 12:00; Stop 07/13/19 at 13:03; Status DC Potassium Chloride 20 meq/ Bicarbonate Dialysis Soln w/ out KCl 5,010 ml @ 1,000 mls/hr Q5H1M IV Last administered on 07/17/19at 14:52; Start 07/12/19 at 11:30; Stop 07/17/19 at 19:59; Status DC Potassium Chloride 20 meq/ Bicarbonate Dialysis Soln w/ out KCl 5,010 ml @ 1,000 mls/hr Q5H1M IV Last administered on 07/17/19at 14:53; Start 07/12/19 at 11:30; Stop 07/17/19 at 19:59; Status DC Sodium Chloride 90 meq/Potassium Chloride 15 meq/ Potassium Phosphate 15 mmol/ Magnesium Sulfate 10 meq/Calcium Gluconate 15 meq/ Multivitamins 10 ml/Chromium/ Copper/Manganese/ Seleni/Zn 0.5 ml/ Total Parenteral Nutrition/Amino Acids/Dextrose/ Fat Emulsion Intravenous 1,400 ml @ 58.333 mls/ hr TPN CONT IV Last administered on 07/12/19at 22:17; Start 07/12/19 at 22:00; Stop 07/13/19 at 21:59; Status DC Cefepime HCl (Maxipime) 2 gm Q12HR IVP Last administered on 07/26/19at 20:56; Start 07/13/19 at 09:00; Stop 07/27/19 at 09:58; Status DC Daptomycin 500 mg/ Sodium Chloride 50 ml @ 100 mls/hr Q48H IV Last administered on 07/29/19at 09:57; Start 07/13/19 at 08:30; Stop 07/29/19 at 10:07; Status DC Lidocaine HCl (Buffered Lidocaine 1%) 3 ml 1X ONCE INJ Last administered on 07/13/19at 10:27; Start 07/13/19 at 10:30; Stop 07/13/19 at 10:31; Status DC Potassium Phosphate 20 mmol/ Sodium Chloride 106.6667 ml @ 51.667 m... 1X ONCE IV Last administered on 07/13/19at 12:51; Start 07/13/19 at 13:00; Stop 07/13/19 at 15:03; Status DC Sodium Chloride 90 meq/Potassium Chloride 15 meq/ Potassium Phosphate 18 mmol/ Magnesium Sulfate 8 meq/Calcium Gluconate 15 meq/ Multivitamins 10 ml/Chromium/ Copper/Manganese/ Seleni/Zn 0.5 ml/ Total Parenteral Nutrition/Amino Acids/Dextrose/ Fat Emulsion Intravenous 1,400 ml @ 58.333 mls/ hr TPN CONT IV Last administered on 07/13/19at 22:16; Start 07/13/19 at 22:00; Stop 07/14/19 at 21:59; Status DC Potassium Chloride 20 meq/ Bicarbonate Dialysis Soln w/ out KCl 5,010 ml @ 1,000 mls/hr Q5H1M IV Last administered on 07/17/19at 14:54; Start 07/13/19 at 16:00; Stop 07/17/19 at 19:59; Status DC Multi-Ingred Cream/Lotion/Oil/ Oint (Artificial Tears Eye Ointment) 1 ramu PRN Q1HR PRN OU DRY EYE, 2nd choice Last administered on 08/01/19at 08:19; Start 07/13/19 at 17:30 Sodium Chloride 90 meq/Potassium Chloride 15 meq/ Potassium Phosphate 18 mmol/ Magnesium Sulfate 8 meq/Calcium Gluconate 15 meq/ Multivitamins 10 ml/Chromium/ Copper/Manganese/ Seleni/Zn 0.5 ml/ Total Parenteral Nutrition/Amino Acids/Dextrose/ Fat Emulsion Intravenous 1,400 ml @ 58.333 mls/ hr TPN CONT IV Last administered on 07/14/19at 22:00; Start 07/14/19 at 22:00; Stop 07/15/19 at 21:59; Status DC Albumin Human 500 ml @ 125 mls/hr 1X ONCE IV ; Start 07/14/19 at 14:15; Stop 07/14/19 at 18:14; Status DC Sodium Chloride 90 meq/Potassium Chloride 15 meq/ Potassium Phosphate 18 mmol/ Magnesium Sulfate 8 meq/Calcium Gluconate 15 meq/ Multivitamins 10 ml/Chromium/ Copper/Manganese/ Seleni/Zn 0.5 ml/ Insulin Human Regular 10 unit/ Total Parenteral Nutrition/Amino Acids/Dextrose/ Fat Emulsion Intravenous 1,400 ml @ 58.333 mls/ hr TPN CONT IV Last administered on 07/15/19at 21:43; Start 07/15/19 at 22:00; Stop 07/16/19 at 21:59; Status DC Lidocaine HCl (Buffered Lidocaine 1%) 3 ml STK-MED ONCE .ROUTE ; Start 07/13/19 at 10:00; Stop 07/15/19 at 13:57; Status DC Midazolam HCl 100 mg/Sodium Chloride 100 ml @ 7 mls/hr CONT PRN IV SEE PROTOCOL Last administered on 07/27/19at 15:35; Start 07/16/19 at 16:00 Sodium Chloride 90 meq/Potassium Chloride 15 meq/ Potassium Phosphate 18 mmol/ Magnesium Sulfate 8 meq/Calcium Gluconate 15 meq/ Multivitamins 10 ml/Chromium/ Copper/Manganese/ Seleni/Zn 0.5 ml/ Insulin Human Regular 15 unit/ Total Parenteral Nutrition/Amino Acids/Dextrose/ Fat Emulsion Intravenous 1,400 ml @ 58.333 mls/ hr TPN CONT IV Last administered on 07/16/19at 20:34; Start 07/16/19 at 22:00; Stop 07/17/19 at 21:59; Status DC Info (Icu Electrolyte Protocol) 1 ea CONT PRN PRN MC PER PROTOCOL; Start 07/17/19 at 13:15 Sodium Chloride 90 meq/Potassium Chloride 15 meq/ Potassium Phosphate 18 mmol/ Magnesium Sulfate 8 meq/Calcium Gluconate 15 meq/ Multivitamins 10 ml/Chromium/ Copper/Manganese/ Seleni/Zn 0.5 ml/ Insulin Human Regular 15 unit/ Total Parenteral Nutrition/Amino Acids/Dextrose/ Fat Emulsion Intravenous 1,400 ml @ 58.333 mls/ hr TPN CONT IV Last administered on 07/17/19at 22:05; Start 07/17/19 at 22:00; Stop 07/18/19 at 21:59; Status DC Potassium Chloride 15 meq/ Bicarbonate Dialysis Soln w/ out KCl 5,007.5 ml @ 1,000 mls/ hr Q5H1M IV Last administered on 07/20/19at 18:14; Start 07/17/19 at 20:00; Stop 07/21/19 at 13:08; Status DC Potassium Chloride 15 meq/ Bicarbonate Dialysis Soln w/ out KCl 5,007.5 ml @ 1,000 mls/ hr Q5H1M IV Last administered on 07/20/19at 18:14; Start 07/17/19 at 20:00; Stop 07/21/19 at 13:08; Status DC Potassium Chloride 15 meq/ Bicarbonate Dialysis Soln w/ out KCl 5,007.5 ml @ 1,000 mls/ hr Q5H1M IV Last administered on 07/20/19at 18:14; Start 07/17/19 at 20:00; Stop 07/21/19 at 13:08; Status DC Iohexol (Omnipaque 240 Mg/ml) 30 ml 1X ONCE PO Last administered on 07/18/19at 11:30; Start 07/18/19 at 11:30; Stop 07/18/19 at 11:33; Status DC Info (CONTRAST GIVEN -- Rx MONITORING) 1 each PRN DAILY PRN MC SEE COMMENTS; Start 07/18/19 at 11:45; Stop 07/20/19 at 11:44; Status DC Sodium Chloride 90 meq/Potassium Chloride 15 meq/ Potassium Phosphate 18 mmol/ Magnesium Sulfate 8 meq/Calcium Gluconate 15 meq/ Multivitamins 10 ml/Chromium/ Copper/Manganese/ Seleni/Zn 0.5 ml/ Insulin Human Regular 15 unit/ Total Parenteral Nutrition/Amino Acids/Dextrose/ Fat Emulsion Intravenous 1,400 ml @ 58.333 mls/ hr TPN CONT IV Last administered on 07/18/19at 21:47; Start 07/18/19 at 22:00; Stop 07/19/19 at 21:59; Status DC Sodium Chloride 90 meq/Potassium Chloride 15 meq/ Potassium Phosphate 18 mmol/ Magnesium Sulfate 8 meq/Calcium Gluconate 15 meq/ Multivitamins 10 ml/Chromium/ Copper/Manganese/ Seleni/Zn 0.5 ml/ Insulin Human Regular 20 unit/ Total Parenteral Nutrition/Amino Acids/Dextrose/ Fat Emulsion Intravenous 1,400 ml @ 58.333 mls/ hr TPN CONT IV Last administered on 07/19/19at 21:36; Start 07/19/19 at 22:00; Stop 07/20/19 at 21:59; Status DC Alteplase, Recombinant (Cathflo For Central Catheter Clearance) 1 mg 1X ONCE INT CAT Last administered on 07/19/19at 20:03; Start 07/19/19 at 19:30; Stop 07/19/19 at 19:46; Status DC Alteplase, Recombinant (Cathflo For Central Catheter Clearance) 1 mg 1X ONCE INT CAT Last administered on 07/19/19at 22:05; Start 07/19/19 at 22:00; Stop 07/19/19 at 22:01; Status DC Sodium Chloride 90 meq/Potassium Chloride 15 meq/ Potassium Phosphate 18 mmol/ Magnesium Sulfate 8 meq/Calcium Gluconate 15 meq/ Multivitamins 10 ml/Chromium/ Copper/Manganese/ Seleni/Zn 0.5 ml/ Insulin Human Regular 20 unit/ Total Parenteral Nutrition/Amino Acids/Dextrose/ Fat Emulsion Intravenous 1,400 ml @ 58.333 mls/ hr TPN CONT IV Last administered on 07/20/19at 21:30; Start 07/20/19 at 22:00; Stop 07/21/19 at 21:59; Status DC Dexmedetomidine HCl 400 mcg/ Sodium Chloride 100 ml @ 0 mls/hr CONT PRN IV ANXIETY / AGITATION Last administered on 09/09/19at 08:13; Start 07/21/19 at 08:15 Sodium Chloride 500 ml @ 500 mls/hr 1X PRN PRN IV ELEVATED BP, SEE COMMENTS; Start 07/21/19 at 08:15 Atropine Sulfate (ATROPINE 0.5mg SYRINGE) 0.5 mg PRN Q5MIN PRN IV SEE COMMENTS; Start 07/21/19 at 08:15 Furosemide (Lasix) 20 mg 1X ONCE IVP Last administered on 07/21/19at 08:19; Start 07/21/19 at 08:15; Stop 07/21/19 at 08:16; Status DC Lidocaine HCl (Buffered Lidocaine 1%) 3 ml STK-MED ONCE .ROUTE ; Start 07/21/19 at 08:39; Stop 07/21/19 at 08:39; Status DC Lidocaine HCl (Buffered Lidocaine 1%) 6 ml 1X ONCE INJ Last administered on 07/21/19at 09:05; Start 07/21/19 at 09:00; Stop 07/21/19 at 09:06; Status DC Sodium Chloride 90 meq/Potassium Chloride 15 meq/ Potassium Phosphate 18 mmol/ Magnesium Sulfate 8 meq/Calcium Gluconate 15 meq/ Multivitamins 10 ml/Chromium/ Copper/Manganese/ Seleni/Zn 0.5 ml/ Insulin Human Regular 20 unit/ Total Parenteral Nutrition/Amino Acids/Dextrose/ Fat Emulsion Intravenous 1,400 ml @ 58.333 mls/ hr TPN CONT IV Last administered on 07/21/19at 22:45; Start 07/21/19 at 22:00; Stop 07/22/19 at 21:59; Status DC Sodium Chloride 1,000 ml @ 1,000 mls/hr Q1H PRN IV hypotension; Start 07/22/19 at 07:30; Stop 07/22/19 at 13:29; Status DC Albumin Human 200 ml @ 200 mls/hr 1X PRN PRN IV Hypotension Last administered on 07/22/19at 09:36; Start 07/22/19 at 07:30; Stop 07/22/19 at 13:29; Status DC Sodium Chloride (Normal Saline Flush) 10 ml 1X PRN PRN IV AP catheter pack; Start 07/22/19 at 07:30; Stop 07/22/19 at 21:29; Status DC Sodium Chloride (Normal Saline Flush) 10 ml 1X PRN PRN IV SILVICULTURIST catheter pack; Start 07/22/19 at 07:30; Stop 07/23/19 at 07:29; Status DC Sodium Chloride 1,000 ml @ 400 mls/hr Q2H30M PRN IV PATENCY; Start 07/22/19 at 07:30; Stop 07/22/19 at 19:29; Status DC Info (PHARMACY MONITORING -- do not chart) 1 each PRN DAILY PRN MC SEE COMMENTS; Start 07/22/19 at 07:30; Stop 07/22/19 at 13:02; Status DC Info (PHARMACY MONITORING -- do not chart) 1 each PRN DAILY PRN MC SEE COMMENTS; Start 07/22/19 at 07:30; Stop 07/24/19 at 12:45; Status DC Sodium Chloride 90 meq/Potassium Chloride 15 meq/ Potassium Phosphate 10 mmol/ Magnesium Sulfate 8 meq/Calcium Gluconate 15 meq/ Multivitamins 10 ml/Chromium/ Copper/Manganese/ Seleni/Zn 0.5 ml/ Insulin Human Regular 25 unit/ Total Parenteral Nutrition/Amino Acids/Dextrose/ Fat Emulsion Intravenous 1,400 ml @ 58.333 mls/ hr TPN CONT IV Last administered on 07/22/19at 22:19; Start 07/22/19 at 22:00; Stop 07/23/19 at 21:59; Status DC Heparin Sodium (Porcine) (Heparin Sodium) 5,000 unit Q12HR SQ Last administered on 08/14/19at 08:59; Start 07/22/19 at 21:00; Stop 08/14/19 at 10:05; Status DC Ondansetron HCl (Zofran) 4 mg PRN Q6HRS PRN IV NAUSEA/VOMITING; Start 07/25/19 at 07:00; Stop 07/26/19 at 06:59; Status DC Fentanyl Citrate (Fentanyl 2ml Vial) 25 mcg PRN Q5MIN PRN IV MILD PAIN 1-3; Start 07/25/19 at 07:00; Stop 07/26/19 at 06:59; Status DC Fentanyl Citrate (Fentanyl 2ml Vial) 50 mcg PRN Q5MIN PRN IV MODERATE TO SEVERE PAIN; Start 07/25/19 at 07:00; Stop 07/26/19 at 06:59; Status DC Ringer's Solution 1,000 ml @ 30 mls/hr Q24H IV ; Start 07/25/19 at 07:00; Stop 07/25/19 at 18:59; Status DC Lidocaine HCl (Xylocaine-Mpf 1% 2ml Vial) 2 ml PRN 1X PRN ID PRIOR TO IV START; Start 07/25/19 at 07:00; Stop 07/26/19 at 06:59; Status DC Prochlorperazine Edisylate (Compazine) 5 mg PACU PRN PRN IV NAUSEA, MRX1; Start 07/25/19 at 07:00; Stop 07/26/19 at 06:59; Status DC Sodium Chloride 1,000 ml @ 1,000 mls/hr Q1H PRN IV hypotension; Start 07/23/19 at 09:10; Stop 07/23/19 at 15:09; Status DC Albumin Human 200 ml @ 200 mls/hr 1X PRN PRN IV Hypotension Last administered on 07/23/19at 10:10; Start 07/23/19 at 09:15; Stop 07/23/19 at 15:14; Status DC Sodium Chloride 1,000 ml @ 400 mls/hr Q2H30M PRN IV PATENCY; Start 07/23/19 at 09:10; Stop 07/23/19 at 21:09; Status DC Info (PHARMACY MONITORING -- do not chart) 1 each PRN DAILY PRN MC SEE COMMENTS; Start 07/23/19 at 09:15; Stop 07/24/19 at 12:45; Status DC Info (PHARMACY MONITORING -- do not chart) 1 each PRN DAILY PRN MC SEE COMMENTS; Start 07/23/19 at 09:15; Stop 07/24/19 at 12:45; Status DC Sodium Chloride 90 meq/Potassium Chloride 15 meq/ Potassium Phosphate 10 mmol/ Magnesium Sulfate 8 meq/Calcium Gluconate 15 meq/ Multivitamins 10 ml/Chromium/ Copper/Manganese/ Seleni/Zn 0.5 ml/ Insulin Human Regular 25 unit/ Total Parent eral Nutrition/Amino Acids/Dextrose/ Fat Emulsion Intravenous 1,400 ml @ 58.333 mls/ hr TPN CONT IV Last administered on 07/23/19at 22:10; Start 07/23/19 at 22:00; Stop 07/24/19 at 21:59; Status DC Magnesium Sulfate 50 ml @ 25 mls/hr PRN DAILY PRN IV for Mag < 1.7 on am labs Last administered on 08/08/19at 17:27; Start 07/24/19 at 09:15 Sodium Chloride 90 meq/Potassium Chloride 15 meq/ Potassium Phosphate 10 mmol/ Magnesium Sulfate 8 meq/Calcium Gluconate 15 meq/ Multivitamins 10 ml/Chromium/ Copper/Manganese/ Seleni/Zn 0.5 ml/ Insulin Human Regular 25 unit/ Total Parenteral Nutrition/Amino Acids/Dextrose/ Fat Emulsion Intravenous 1,400 ml @ 58.333 mls/ hr TPN CONT IV Last administered on 07/24/19at 21:20; Start 07/24/19 at 22:00; Stop 07/25/19 at 21:59; Status DC Sodium Chloride 1,000 ml @ 1,000 mls/hr Q1H PRN IV hypotension; Start 07/24/19 at 12:23; Stop 07/24/19 at 18:22; Status DC Albumin Human 200 ml @ 200 mls/hr 1X ONCE IV Last administered on 07/24/19at 13:34; Start 07/24/19 at 12:30; Stop 07/24/19 at 13:29; Status DC Diphenhydramine HCl (Benadryl) 25 mg 1X PRN PRN IV ITCHING; Start 07/24/19 at 12:30; Stop 07/25/19 at 12:29; Status DC Diphenhydramine HCl (Benadryl) 25 mg 1X PRN PRN IV ITCHING; Start 07/24/19 at 12:30; Stop 07/25/19 at 12:29; Status DC Info (PHARMACY MONITORING -- do not chart) 1 each PRN DAILY PRN MC SEE COMMENTS; Start 07/24/19 at 12:30; Status Cancel Bupivacaine HCl/ Epinephrine Bitart (Sensorcain-Epi 0.5%-1:[id number] Mpf) 30 ml STK-MED ONCE .ROUTE Last administered on 07/25/19at 11:44; Start 07/25/19 at 11:00; Stop 07/25/19 at 11:01; Status DC Cellulose (Surgicel Fibrillar 1x2) 1 each STK-MED ONCE .ROUTE ; Start 07/25/19 at 11:00; Stop 07/25/19 at 11:01; Status DC Sodium Chloride 90 meq/Potassium Chloride 15 meq/ Potassium Phosphate 10 mmol/ Magnesium Sulfate 12 meq/Calcium Gluconate 15 meq/ Multivitamins 10 ml/Chromium/ Copper/Manganese/ Seleni/Zn 0.5 ml/ Insulin Human Regular 25 unit/ Total Parenteral Nutrition/Amino Acids/Dextrose/ Fat Emulsion Intravenous 1,400 ml @ 58.333 mls/ hr TPN CONT IV Last administered on 07/25/19at 22:24; Start 07/25/19 at 22:00; Stop 07/26/19 at 21:59; Status DC Propofol 20 ml @ As Directed STK-MED ONCE IV ; Start 07/25/19 at 11:07; Stop 07/25/19 at 11:07; Status DC Cellulose (Surgicel Hemostat 4x8) 1 each STK-MED ONCE .ROUTE Last administered on 07/25/19at 11:44; Start 07/25/19 at 11:55; Stop 07/25/19 at 11:56; Status DC Sevoflurane (Ultane) 60 ml STK-MED ONCE IH ; Start 07/25/19 at 12:46; Stop 07/25/19 at 12:46; Status DC Sodium Chloride 1,000 ml @ 1,000 mls/hr Q1H PRN IV hypotension; Start 07/25/19 at 13:51; Stop 07/25/19 at 19:50; Status DC Albumin Human 200 ml @ 200 mls/hr 1X PRN PRN IV Hypotension Last administered on 07/25/19at 14:51; Start 07/25/19 at 14:00; Stop 07/25/19 at 19:59; Status DC Diphenhydramine HCl (Benadryl) 25 mg 1X PRN PRN IV ITCHING; Start 07/25/19 at 14:00; Stop 07/26/19 at 13:59; Status DC Diphenhydramine HCl (Benadryl) 25 mg 1X PRN PRN IV ITCHING; Start 07/25/19 at 14:00; Stop 07/26/19 at 13:59; Status DC Sodium Chloride 1,000 ml @ 400 mls/hr Q2H30M PRN IV PATENCY; Start 07/25/19 at 13:51; Stop 07/26/19 at 01:50; Status DC Info (PHARMACY MONITORING -- do not chart) 1 each PRN DAILY PRN MC SEE COMMENTS; Start 07/25/19 at 14:00; Stop 07/28/19 at 08:16; Status DC Heparin Sodium (Porcine) (Hep Lock Adult) 500 unit STK-MED ONCE IVP ; Start 07/26/19 at 09:29; Stop 07/26/19 at 09:30; Status DC Sodium Chloride 1,000 ml @ 1,000 mls/hr Q1H PRN IV hypotension; Start 07/26/19 at 10:43; Stop 07/26/19 at 16:42; Status DC Sodium Chloride 1,000 ml @ 400 mls/hr Q2H30M PRN IV PATENCY; Start 07/26/19 at 10:43; Stop 07/26/19 at 22:42; Status DC Info (PHARMACY MONITORING -- do not chart) 1 each PRN DAILY PRN MC SEE COMMENTS; Start 07/26/19 at 10:45; Status UNV Info (PHARMACY MONITORING -- do not chart) 1 each PRN DAILY PRN MC SEE COMMENTS; Start 07/26/19 at 10:45; Status UNV Sodium Chloride 90 meq/Potassium Chloride 15 meq/ Magnesium Sulfate 12 meq/Calcium Gluconate 15 meq/ Multivitamins 10 ml/Chromium/ Copper/Manganese/ Seleni/Zn 0.5 ml/ Insulin Human Regular 25 unit/ Total Parenteral Nutrition/Amino Acids/Dextrose/ Fat Emulsion Intravenous 1,400 ml @ 58.333 mls/ hr TPN CONT IV Last administered on 07/26/19at 22:13; Start 07/26/19 at 22:00; Stop 07/27/19 at 21:59; Status DC Sodium Chloride 1,000 ml @ 1,000 mls/hr Q1H PRN IV hypotension; Start 07/27/19 at 07:50; Stop 07/27/19 at 13:49; Status DC Albumin Human 200 ml @ 200 mls/hr 1X ONCE IV ; Start 07/27/19 at 08:00; Stop 07/27/19 at 08:53; Status DC Diphenhydramine HCl (Benadryl) 25 mg 1X PRN PRN IV ITCHING; Start 07/27/19 at 08:00; Stop 07/28/19 at 07:59; Status DC Diphenhydramine HCl (Benadryl) 25 mg 1X PRN PRN IV ITCHING; Start 07/27/19 at 08:00; Stop 07/28/19 at 07:59; Status DC Info (PHARMACY MONITORING -- do not chart) 1 each PRN DAILY PRN MC SEE COMMENTS; Start 07/27/19 at 08:00; Stop 07/28/19 at 08:16; Status DC Albumin Human 50 ml @ 50 mls/hr 1X ONCE IV ; Start 07/27/19 at 08:53; Stop 07/27/19 at 08:56; Status DC Albumin Human 200 ml @ 50 mls/hr PRN 1X PRN IV HYPOTENSION Last administered on 08/02/19at 11:54; Start 07/27/19 at 09:00; Stop 09/08/19 at 11:14; Status DC Meropenem 500 mg/ Sodium Chloride 50 ml @ 100 mls/hr Q12H IV Last administered on 08/16/19at 10:45; Start 07/27/19 at 10:00; Stop 08/16/19 at 12:37; Status DC Sodium Chloride 90 meq/Magnesium Sulfate 12 meq/ Calcium Gluconate 15 meq/ Multivitamins 10 ml/Chromium/ Copper/Manganese/ Seleni/Zn 0.5 ml/ Insulin Human Regular 25 unit/ Total Parenteral Nutrition/Amino Acids/Dextrose/ Fat Emulsion Intravenous 1,400 ml @ 58.333 mls/ hr TPN CONT IV Last administered on 07/27/19at 21:41; Start 07/27/19 at 22:00; Stop 07/28/19 at 21:59; Status DC Sodium Chloride 1,000 ml @ 1,000 mls/hr Q1H PRN IV hypotension; Start 07/28/19 at 07:58; Stop 07/28/19 at 13:57; Status DC Albumin Human 200 ml @ 200 mls/hr 1X PRN PRN IV Hypotension Last administered on 07/28/19at 09:30; Start 07/28/19 at 08:00; Stop 07/28/19 at 13:59; Status DC Sodium Chloride 1,000 ml @ 400 mls/hr Q2H30M PRN IV PATENCY; Start 07/28/19 at 07:58; Stop 07/28/19 at 19:57; Status DC Info (PHARMACY MONITORING -- do not chart) 1 each PRN DAILY PRN MC SEE COMMENTS; Start 07/28/19 at 08:00; Status Cancel Info (PHARMACY MONITORING -- do not chart) 1 each PRN DAILY PRN MC SEE COMMENTS; Start 07/28/19 at 08:15; Status UNV Sodium Chloride 90 meq/Potassium Phosphate 5 mmol/ Magnesium Sulfate 12 meq/Calcium Gluconate 15 meq/ Multivitamins 10 ml/Chromium/ Copper/Manganese/ Seleni/Zn 0.5 ml/ Insulin Human Regular 30 unit/ Total Parenteral Nutrition/Amino Acids/Dextrose/ Fat Emulsion Intravenous 1,400 ml @ 58.333 mls/ hr TPN CONT IV Last administered on 07/28/19at 22:08; Start 07/28/19 at 22:00; Stop 07/29/19 at 21:59; Status DC Linezolid/Dextrose 300 ml @ 300 mls/hr Q12HR IV Last administered on 08/08/19at 20:40; Start 07/29/19 at 11:00; Stop 08/09/19 at 08:10; Status DC Sodium Chloride 90 meq/Potassium Phosphate 15 mmol/ Magnesium Sulfate 12 meq/Calcium Gluconate 15 meq/ Multivitamins 10 ml/Chromium/ Copper/Manganese/ Seleni/Zn 0.5 ml/ Insulin Human Regular 30 unit/ Total Parenteral Nutrition/Amino Acids/Dextrose/ Fat Emulsion Intravenous 1,400 ml @ 58.333 mls/ hr TPN CONT IV Last administered on 07/29/19at 21:49; Start 07/29/19 at 22:00; Stop 07/30/19 at 21:59; Status DC Sodium Chloride 90 meq/Potassium Phosphate 15 mmol/ Magnesium Sulfate 12 meq/Calcium Gluconate 15 meq/ Multivitamins 10 ml/Chromium/ Copper/Manganese/ Seleni/Zn 0.5 ml/ Insulin Human Regular 40 unit/ Total Parenteral Nutr ition/Amino Acids/Dextrose/ Fat Emulsion Intravenous 1,400 ml @ 58.333 mls/ hr TPN CONT IV Last administered on 07/30/19at 21:21; Start 07/30/19 at 22:00; Stop 07/31/19 at 21:59; Status DC Sodium Chloride 1,000 ml @ 1,000 mls/hr Q1H PRN IV hypotension; Start 07/30/19 at 13:26; Stop 07/30/19 at 19:25; Status DC Albumin Human 200 ml @ 200 mls/hr 1X PRN PRN IV Hypotension Last administered on 07/30/19at 15:00; Start 07/30/19 at 13:30; Stop 07/30/19 at 19:29; Status DC Sodium Chloride (Normal Saline Flush) 10 ml 1X PRN PRN IV AP catheter pack; Start 07/30/19 at 13:30; Stop 07/31/19 at 13:29; Status DC Sodium Chloride (Normal Saline Flush) 10 ml 1X PRN PRN IV SILVICULTURIST catheter pack; Start 07/30/19 at 13:30; Stop 07/31/19 at 13:29; Status DC Sodium Chloride 1,000 ml @ 400 mls/hr Q2H30M PRN IV PATENCY; Start 07/30/19 at 13:26; Stop 07/31/19 at 01:25; Status DC Info (PHARMACY MONITORING -- do not chart) 1 each PRN DAILY PRN MC SEE COMMENTS; Start 07/30/19 at 13:30; Stop 07/30/19 at 13:33; Status DC Info (PHARMACY MONITORING -- do not chart) 1 each PRN DAILY PRN MC SEE COMMENTS; Start 07/30/19 at 13:30; Stop 07/30/19 at 13:34; Status DC Sodium Chloride 90 meq/Potassium Phosphate 19 mmol/ Magnesium Sulfate 12 meq/Calcium Gluconate 15 meq/ Multivitamins 10 ml/Chromium/ Copper/Manganese/ Seleni/Zn 0.5 ml/ Insulin Human Regular 40 unit/ Total Parenteral Nutrition/Amino Acids/Dextrose/ Fat Emulsion Intravenous 1,400 ml @ 58.333 mls/ hr TPN CONT IV Last administered on 07/31/19at 21:54; Start 07/31/19 at 22:00; Stop 08/01/19 at 21:59; Status DC Sodium Chloride 1,000 ml @ 1,000 mls/hr Q1H PRN IV hypotension; Start 08/01/19 at 09:35; Stop 08/01/19 at 15:34; Status DC Albumin Human 200 ml @ 200 mls/hr 1X PRN PRN IV Hypotension; Start 08/01/19 at 09:45; Stop 08/01/19 at 15:44; Status DC Diphenhydramine HCl (Benadryl) 25 mg 1X PRN PRN IV ITCHING; Start 08/01/19 at 09:45; Stop 08/02/19 at 09:44; Status DC Diphenhydramine HCl (Benadryl) 25 mg 1X PRN PRN IV ITCHING; Start 08/01/19 at 09:45; Stop 08/02/19 at 09:44; Status DC Sodium Chloride 1,000 ml @ 400 mls/hr Q2H30M PRN IV PATENCY; Start 08/01/19 at 09:35; Stop 08/01/19 at 21:34; Status DC Info (PHARMACY MONITORING -- do not chart) 1 each PRN DAILY PRN MC SEE COMMENTS; Start 08/01/19 at 09:45; Status Cancel Sodium Chloride 100 meq/Potassium Phosphate 19 mmol/ Magnesium Sulfate 12 meq/Calcium Gluconate 15 meq/ Multivitamins 10 ml/Chromium/ Copper/Manganese/ Seleni/Zn 0.5 ml/ Insulin Human Regular 40 unit/ Potassium Chloride 20 meq/ Total Parenteral Nutrition/Amino Acids/Dextrose/ Fat Emulsion Intravenous 1,400 ml @ 58.333 mls/ hr TPN CONT IV Last administered on 08/01/19at 22:02; Start 08/01/19 at 22:00; Stop 08/02/19 at 21:59; Status DC Furosemide (Lasix) 40 mg 1X ONCE IVP Last administered on 08/01/19at 14:39; Start 08/01/19 at 14:30; Stop 08/01/19 at 14:31; Status DC Metronidazole 100 ml @ 100 mls/hr Q8HRS IV Last administered on 08/09/19at 06:04; Start 08/02/19 at 10:00; Stop 08/09/19 at 08:10; Status DC Sodium Chloride 1,000 ml @ 1,000 mls/hr Q1H PRN IV hypotension; Start 08/02/19 at 08:00; Stop 08/02/19 at 13:59; Status DC Albumin Human 200 ml @ 200 mls/hr 1X PRN PRN IV Hypotension; Start 08/02/19 at 08:00; Stop 08/02/19 at 13:59; Status DC Sodium Chloride 1,000 ml @ 400 mls/hr Q2H30M PRN IV PATENCY; Start 08/02/19 at 08:00; Stop 08/02/19 at 19:59; Status DC Info (PHARMACY MONITORING -- do not chart) 1 each PRN DAILY PRN MC SEE COMMENTS; Start 08/02/19 at 11:30; Status UNV Info (PHARMACY MONITORING -- do not chart) 1 each PRN DAILY PRN MC SEE COMMENTS; Start 08/02/19 at 11:30; Stop 08/04/19 at 12:13; Status DC Sodium Chloride 100 meq/Potassium Phosphate 19 mmol/ Magnesium Sulfate 12 meq/Calcium Gluconate 15 meq/ Multivitamins 10 ml/Chromium/ Copper/Manganese/ Seleni/Zn 0.5 ml/ Insulin Human Regular 40 unit/ Potassium Chloride 20 meq/ Total Parenteral Nutrition/Amino Acids/Dextrose/ Fat Emulsion Intravenous 1,400 ml @ 58.333 mls/ hr TPN CONT IV Last administered on 08/02/19at 21:52; Start 08/02/19 at 22:00; Stop 08/03/19 at 21:59; Status DC Sodium Chloride (Normal Saline Flush) 10 ml QSHIFT PRN IV AFTER MEDS AND BLOOD DRAWS; Start 08/02/19 at 15:00; Stop 08/30/19 at 11:27; Status DC Sodium Chloride (Normal Saline Flush) 10 ml PRN Q5MIN PRN IV AFTER MEDS AND BLOOD DRAWS; Start 08/02/19 at 15:00 Sodium Chloride (Normal Saline Flush) 20 ml PRN Q5MIN PRN IV AFTER MEDS AND BLOOD DRAWS; Start 08/02/19 at 15:00 Sodium Chloride 100 meq/Potassium Phosphate 19 mmol/ Magnesium Sulfate 12 meq/Calcium Gluconate 15 meq/ Multivitamins 10 ml/Chromium/ Copper/Manganese/ Seleni/Zn 0.5 ml/ Insulin Human Regular 40 unit/ Potassium Chloride 20 meq/ Total Parenteral Nutrition/Amino Acids/Dextrose/ Fat Emulsion Intravenous 1,400 ml @ 58.333 mls/ hr TPN CONT IV Last administered on 08/03/19at 21:20; Start 08/03/19 at 22:00; Stop 08/04/19 at 21:59; Status DC Lidocaine HCl (Buffered Lidocaine 1%) 3 ml STK-MED ONCE .ROUTE ; Start 08/03/19 at 13:16; Stop 08/03/19 at 13:16; Status DC Lidocaine HCl (Buffered Lidocaine 1%) 6 ml 1X ONCE INJ Last administered on 08/03/19at 13:45; Start 08/03/19 at 13:30; Stop 08/03/19 at 13:31; Status DC Albumin Human 100 ml @ 100 mls/hr 1X ONCE IV Last administered on 08/03/19at 15:41; Start 08/03/19 at 15:00; Stop 08/03/19 at 15:59; Status DC Albumin Human 50 ml @ 50 mls/hr 1X ONCE IV Last administered on 08/03/19at 15:00; Start 08/03/19 at 15:00; Stop 08/03/19 at 15:59; Status DC Info (PHARMACY MONITORING -- do not chart) 1 each PRN DAILY PRN MC SEE COMMENTS; Start 08/04/19 at 11:30; Status Cancel Info (PHARMACY MONITORING -- do not chart) 1 each PRN DAILY PRN MC SEE COMMENTS; Start 08/04/19 at 11:30; Status UNV Sodium Chloride 100 meq/Potassium Phosphate 10 mmol/ Magnesium Sulfate 12 meq/Calcium Gluconate 15 meq/ Multivitamins 10 ml/Chromium/ Copper/Manganese/ Seleni/Zn 0.5 ml/ Insulin Human Regular 35 unit/ Potassium Chloride 20 meq/ Total Parenteral Nutrition/Amino Acids/Dextrose/ Fat Emulsion Intravenous 1,400 ml @ 58.333 mls/ hr TPN CONT IV Last administered on 08/04/19at 22:10; Start 08/04/19 at 22:00; Stop 08/05/19 at 21:59; Status DC Sodium Chloride 100 meq/Potassium Phosphate 5 mmol/ Magnesium Sulfate 12 meq/Calcium Gluconate 15 meq/ Multivitamins 10 ml/Chromium/ Copper/Manganese/ Seleni/Zn 0.5 ml/ Insulin Human Regular 35 unit/ Potassium Chloride 20 meq/ Total Parenteral Nutrition/Amino Acids/Dextrose/ Fat Emulsion Intravenous 1,400 ml @ 58.333 mls/ hr TPN CONT IV Last administered on 4/17/20at 22:59; Start 08/05/19 at 22:00; Stop 08/06/19 at 21:59; Status DC Sodium Chloride 1,000 ml @ 1,000 mls/hr Q1H PRN IV hypotension; Start 08/06/19 at 08:27; Stop 08/06/19 at 14:26; Status DC Albumin Human 200 ml @ 200 mls/hr 1X PRN PRN IV Hypotension Last administered on 08/06/19at 09:18; Start 08/06/19 at 08:30; Stop 08/06/19 at 14:29; Status DC Sodium Chloride 1,000 ml @ 400 mls/hr Q2H30M PRN IV PATENCY; Start 08/06/19 at 08:27; Stop 08/06/19 at 20:26; Status DC Info (PHARMACY MONITORING -- do not chart) 1 each PRN DAILY PRN MC SEE COMMENTS; Start 08/06/19 at 08:30; Status Cancel Info (PHARMACY MONITORING -- do not chart) 1 each PRN DAILY PRN MC SEE COMMENTS; Start 08/06/19 at 08:30; Stop 08/14/19 at 13:10; Status DC Sodium Chloride 100 meq/Potassium Chloride 40 meq/ Magnesium Sulfate 15 meq/Calcium Gluconate 15 meq/ Multivitamins 10 ml/Chromium/ Copper/Manganese/ Seleni/Zn 0.5 ml/ Insulin Human Regular 35 unit/ Total Parenteral Nutrition/Amino Acids/Dextrose/ Fat Emulsion Intravenous 1,400 ml @ 58.333 mls/ hr TPN CONT IV Last administered on 08/06/19at 22:00; Start 08/06/19 at 22:00; Stop 08/07/19 at 21:59; Status DC Potassium Chloride/Water 100 ml @ 100 mls/hr 1X ONCE IV Last administered on 08/06/19at 17:28; Start 08/06/19 at 14:45; Stop 08/06/19 at 15:44; Status DC Sodium Chloride 100 meq/Potassium Chloride 40 meq/ Magnesium Sulfate 15 meq/Calcium Gluconate 15 meq/ Multivitamins 10 ml/Chromium/ Copper/Manganese/ Seleni/Zn 0.5 ml/ Insulin Human Regular 35 unit/ Total Parenteral Nutr ition/Amino Acids/Dextrose/ Fat Emulsion Intravenous 1,400 ml @ 58.333 mls/ hr TPN CONT IV Last administered on 08/07/19at 22:46; Start 08/07/19 at 22:00; Stop 08/08/19 at 21:59; Status DC Sodium Chloride 100 meq/Potassium Chloride 40 meq/ Magnesium Sulfate 20 meq/Calcium Gluconate 15 meq/ Multivitamins 10 ml/Chromium/ Copper/Manganese/ Seleni/Zn 0.5 ml/ Insulin Human Regular 35 unit/ Total Parenteral Nutrition/Amino Acids/Dextrose/ Fat Emulsion Intravenous 1,400 ml @ 58.333 mls/ hr TPN CONT IV Last administered on 08/08/19at 22:31; Start 08/08/19 at 22:00; Stop 08/09/19 at 21:59; Status DC Fentanyl Citrate (Fentanyl 2ml Vial) 50 mcg PRN Q2HR PRN IVP PAIN Last administered on 08/15/19at 13:32; Start 08/08/19 at 21:00; Stop 08/16/19 at 12:53; Status DC Fentanyl Citrate (Fentanyl 2ml Vial) 25 mcg PRN Q2HR PRN IVP PAIN; Start 08/08/19 at 21:00; Stop 08/16/19 at 12:54; Status DC Enoxaparin Sodium (Lovenox 100mg Syringe) 100 mg Q12HR SQ ; Start 08/09/19 at 21:00; Status UNV Amino Acids/ Glycerin/ Electrolytes 1,000 ml @ 75 mls/hr [id number] IV ; Start 08/08/19 at 21:15; Status UNV Sodium Chloride 1,000 ml @ 1,000 mls/hr Q1H PRN IV hypotension; Start 08/09/19 at 07:56; Stop 08/09/19 at 13:55; Status DC Albumin Human 200 ml @ 200 mls/hr 1X PRN PRN IV Hypotension Last administered on 08/09/19at 08:40; Start 08/09/19 at 08:00; Stop 08/09/19 at 13:59; Status DC Sodium Chloride 1,000 ml @ 400 mls/hr Q2H30M PRN IV PATENCY; Start 08/09/19 at 07:56; Stop 08/09/19 at 19:55; Status DC Info (PHARMACY MONITORING -- do not chart) 1 each PRN DAILY PRN MC SEE COMMENTS; Start 08/09/19 at 08:00; Status UNV Info (PHARMACY MONITORING -- do not chart) 1 each PRN DAILY PRN MC SEE COMMENTS; Start 08/09/19 at 08:00; Status UNV Daptomycin 430 mg/ Sodium Chloride 50 ml @ 100 mls/hr Q24H IV Last administered on 08/09/19at 12:35; Start 08/09/19 at 09:00; Stop 08/09/19 at 12:49; Status DC Sodium Chloride 100 meq/Potassium Chloride 40 meq/ Magnesium Sulfate 20 meq/Calcium Gluconate 15 meq/ Multivitamins 10 ml/Chromium/ Copper/Manganese/ Seleni/Zn 0.5 ml/ Insulin Human Regular 35 unit/ Total Parenteral Nutrition/Amino Acids/Dextrose/ Fat Emulsion Intravenous 1,400 ml @ 58.333 mls/ hr TPN CONT IV Last administered on 08/09/19at 21:26; Start 08/09/19 at 22:00; Stop 08/10/19 at 21:59; Status DC Daptomycin 430 mg/ Sodium Chloride 50 ml @ 100 mls/hr Q48H IV ; Start 08/11/19 at 09:00; Stop 08/10/19 at 11:55; Status DC Sodium Chloride 100 meq/Potassium Chloride 40 meq/ Magnesium Sulfate 20 meq/Calcium Gluconate 15 meq/ Multivitamins 10 ml/Chromium/ Copper/Manganese/ Seleni/Zn 0.5 ml/ Insulin Human Regular 35 unit/ Total Parenteral Nutrition/Amino Acids/Dextrose/ Fat Emulsion Intravenous 1,400 ml @ 58.333 mls/ hr TPN CONT IV Last administered on 08/10/19at 22:27; Start 08/10/19 at 22:00; Stop 08/11/19 at 21:59; Status DC Daptomycin 430 mg/ Sodium Chloride 50 ml @ 100 mls/hr Q24H IV Last administered on 08/12/19at 15:07; Start 08/10/19 at 13:00; Stop 08/13/19 at 13:15; Status DC Sodium Chloride 100 meq/Potassium Chloride 40 meq/ Magnesium Sulfate 20 meq/Calcium Gluconate 10 meq/ Multivitamins 10 ml/Chromium/ Copper/Manganese/ Seleni/Zn 0.5 ml/ Insulin Human Regular 35 unit/ Total Parenteral Nutrition/Amino Acids/Dextrose/ Fat Emulsion Intravenous 1,400 ml @ 58.333 mls/ hr TPN CONT IV Last administered on 08/12/19at 00:06; Start 08/11/19 at 22:00; Stop 08/12/19 at 21:59; Status DC Alteplase, Recombinant (Cathflo For Central Catheter Clearance) 1 mg 1X ONCE INT CAT Last administered on 08/12/19at 11:44; Start 08/12/19 at 10:45; Stop 08/12/19 at 10:46; Status DC Ondansetron HCl (Zofran) 4 mg PRN Q6HRS PRN IV NAUSEA/VOMITING; Start 08/15/19 at 07:00; Stop 08/16/19 at 06:59; Status DC Fentanyl Citrate (Fentanyl 2ml Vial) 25 mcg PRN Q5MIN PRN IV MILD PAIN 1-3; Start 08/15/19 at 07:00; Stop 08/16/19 at 06:59; Status DC Fentanyl Citrate (Fentanyl 2ml Vial) 50 mcg PRN Q5MIN PRN IV MODERATE TO SEVERE PAIN Last administered on 08/15/19at 10:17; Start 08/15/19 at 07:00; Stop 08/16/19 at 06:59; Status DC Ringer's Solution 1,000 ml @ 30 mls/hr Q24H IV ; Start 08/15/19 at 07:00; Stop 08/15/19 at 18:59; Status DC Lidocaine HCl (Xylocaine-Mpf 1% 2ml Vial) 2 ml PRN 1X PRN ID PRIOR TO IV START; Start 08/15/19 at 07:00; Stop 08/16/19 at 06:59; Status DC Prochlorperazine Edisylate (Compazine) 5 mg PACU PRN PRN IV NAUSEA, MRX1; Start 08/15/19 at 07:00; Stop 08/16/19 at 06:59; Status DC Sodium Acetate 50 meq/Potassium Acetate 55 meq/ Magnesium Sulfate 20 meq/Calcium Gluconate 10 meq/ Multivitamins 10 ml/Chromium/ Copper/Manganese/ Seleni/Zn 0.5 ml/ Insulin Human Regular 35 unit/ Total Parenteral Nutrition/Amino Acids/Dextrose/ Fat Emulsion Intravenous 1,400 ml @ 58.333 mls/ hr TPN CONT IV ; Start 08/12/19 at 22:00; Stop 08/12/19 at 14:15; Status DC Sodium Acetate 50 meq/Potassium Acetate 55 meq/ Magnesium Sulfate 20 meq/Calcium Gluconate 10 meq/ Multivitamins 10 ml/Chromium/ Copper/Manganese/ Seleni/Zn 0.5 ml/ Insulin Human Regular 35 unit/ Total Parenteral Nutrition/Amino Acids/Dextrose/ Fat Emulsion Intravenous 1,800 ml @ 75 mls/hr TPN CONT IV Last administered on 08/12/19at 22:38; Start 08/12/19 at 22:00; Stop 08/13/19 at 21:59; Status DC Sodium Chloride 1,000 ml @ 1,000 mls/hr Q1H PRN IV hypotension; Start 08/12/19 at 15:31; Stop 08/12/19 at 21:30; Status DC Diphenhydramine HCl (Benadryl) 25 mg 1X PRN PRN IV ITCHING; Start 08/12/19 at 15:45; Stop 08/13/19 at 15:44; Status DC Diphenhydramine HCl (Benadryl) 25 mg 1X PRN PRN IV ITCHING; Start 08/12/19 at 15:45; Stop 08/13/19 at 15:44; Status DC Sodium Chloride 1,000 ml @ 400 mls/hr Q2H30M PRN IV PATENCY; Start 08/12/19 at 15:31; Stop 08/13/19 at 03:30; Status DC Info (PHARMACY MONITORING -- do not chart) 1 each PRN DAILY PRN MC SEE COMMENTS; Start 08/12/19 at 15:45 Sodium Acetate 50 meq/Potassium Acetate 55 meq/ Magnesium Sulfate 20 meq/Calcium Gluconate 10 meq/ Multivitamins 10 ml/Chromium/ Copper/Manganese/ Seleni/Zn 0.5 ml/ Insulin Human Regular 35 unit/ Total Parenteral Nutrition/Amino Acids/Dextrose/ Fat Emulsion Intravenous 1,800 ml @ 75 mls/hr TPN CONT IV Last administered on 08/13/19at 22:03; Start 08/13/19 at 22:00; Stop 08/14/19 at 21:59; Status DC Daptomycin 430 mg/ Sodium Chloride 50 ml @ 100 mls/hr Q24H IV Last administered on 08/18/19at 13:00; Start 08/13/19 at 13:00; Stop 08/18/19 at 20:58; Status DC Heparin Sodium (Porcine) 1000 unit/Sodium Chloride 1,001 ml @ 1,001 mls/hr 1X ONCE IRR ; Start 08/15/19 at 06:00; Stop 08/15/19 at 06:59; Status DC Potassium Acetate 55 meq/Magnesium Sulfate 20 meq/ Calcium Gluconate 10 meq/ Multivitamins 10 ml/Chromium/ Copper/Manganese/ Seleni/Zn 0.5 ml/ Insulin Human Regular 35 unit/ Total Parenteral Nutrition/Amino Acids/Dextrose/ Fat Emulsion Intravenous 1,920 ml @ 80 mls/hr TPN CONT IV Last administered on 08/14/19at 22:10; Start 08/14/19 at 22:00; Stop 08/15/19 at 21:59; Status DC Dexamethasone Sodium Phosphate (Decadron) 4 mg STK-MED ONCE .ROUTE ; Start 08/15/19 at 10:56; Stop 08/15/19 at 10:57; Status DC Ondansetron HCl (Zofran) 4 mg STK-MED ONCE .ROUTE ; Start 08/15/19 at 10:56; Stop 08/15/19 at 10:57; Status DC Rocuronium [place] (Zemuron) 50 mg STK-MED ONCE .ROUTE ; Start 08/15/19 at 10:56; Stop 08/15/19 at 10:57; Status DC Fentanyl Citrate (Fentanyl 2ml Vial) 100 mcg STK-MED ONCE .ROUTE ; Start 08/15/19 at 10:56; Stop 08/15/19 at 10:57; Status DC Bupivacaine HCl/ Epinephrine Bitart (Sensorcain-Epi 0.5%-1:[id number] Mpf) 30 ml STK-MED ONCE .ROUTE Last administered on 08/15/19at 12:01; Start 08/15/19 at 10:58; Stop 08/15/19 at 10:58; Status DC Cellulose (Surgicel Hemostat 2x14) 1 each STK-MED ONCE .ROUTE ; Start 08/15/19 a t 10:58; Stop 08/15/19 at 10:59; Status DC Iohexol (Omnipaque 300 Mg/ml) 50 ml STK-MED ONCE .ROUTE ; Start 08/15/19 at 10:58; Stop 08/15/19 at 10:59; Status DC Cellulose (Surgicel Hemostat 4x8) 1 each STK-MED ONCE .ROUTE ; Start 08/15/19 at 10:58; Stop 08/15/19 at 10:59; Status DC Bisacodyl (Dulcolax Supp) 10 mg STK-MED ONCE .ROUTE ; Start 08/15/19 at 10:59; Stop 08/15/19 at 10:59; Status DC Heparin Sodium (Porcine) 1000 unit/Sodium Chloride 1,001 ml @ 1,001 mls/hr 1X ONCE IRR ; Start 08/15/19 at 12:00; Stop 08/15/19 at 12:59; Status DC Propofol 20 ml @ As Directed STK-MED ONCE IV ; Start 08/15/19 at 11:05; Stop 08/15/19 at 11:05; Status DC Sevoflurane (Ultane) 90 ml STK-MED ONCE IH ; Start 08/15/19 at 11:05; Stop 08/15/19 at 11:05; Status DC Sevoflurane (Ultane) 60 ml STK-MED ONCE IH ; Start 08/15/19 at 12:26; Stop 08/15/19 at 12:27; Status DC Propofol 20 ml @ As Directed STK-MED ONCE IV ; Start 08/15/19 at 12:26; Stop 08/15/19 at 12:27; Status DC Phenylephrine HCl (PHENYLEPHRINE in 0.9% NACL PF) 1 mg STK-MED ONCE IV ; Start 08/15/19 at 12:34; Stop 08/15/19 at 12:34; Status DC Heparin Sodium (Porcine) (Heparin Sodium) 5,000 unit Q12HR SQ Last administered on 08/24/19at 20:57; Start 08/15/19 at 21:00; Stop 08/25/19 at 09:59; Status DC Sodium Chloride (Normal Saline Flush) 3 ml QSHIFT PRN IV AFTER MEDS AND BLOOD DRAWS; Start 08/15/19 at 13:45 Naloxone HCl (Narcan) 0.4 mg PRN Q2MIN PRN IV SEE INSTRUCTIONS; Start 08/15/19 at 13:45 Sodium Chloride 1,000 ml @ 25 mls/hr Q24H IV Last administered on 09/06/19at 13:37; Start 08/15/19 at 13:37 Naloxone HCl (Narcan) 0.4 mg PRN Q2MIN PRN IV SEE INSTRUCTIONS; Start 08/15/19 at 14:30; Status UNV Sodium Chloride 1,000 ml @ 25 mls/hr Q24H IV ; Start 08/15/19 at 14:30; Status UNV Hydromorphone HCl 30 ml @ 0 mls/hr CONT PRN PRN IV PER PROTOCOL Last administered on 08/20/19at 16:08; Start 08/15/19 at 14:30; Stop 08/22/19 at 08:55; Status DC Potassium Acetate 55 meq/Magnesium Sulfate 20 meq/ Calcium Gluconate 10 meq/ Multivitamins 10 ml/Chromium/ Copper/Manganese/ Seleni/Zn 0.5 ml/ Insulin Human Regular 35 unit/ Total Parenteral Nutrition/Amino Acids/Dextrose/ Fat Emulsion Intravenous 1,920 ml @ 80 mls/hr TPN CONT IV Last administered on 08/15/19at 22:01; Start 08/15/19 at 22:00; Stop 08/16/19 at 21:59; Status DC Bumetanide (Bumex) 2 mg [id number] IV Last administered on 08/19/19at 13:50; Start 08/16/19 at 14:00; Stop 08/20/19 at 14:10; Status DC Meropenem 1 gm/ Sodium Chloride 100 ml @ 200 mls/hr Q8HRS IV Last administered on 09/09/19at 05:53; Start 08/16/19 at 14:00; Stop 09/09/19 at 09:31; Status DC Potassium Acetate 55 meq/Magnesium Sulfate 20 meq/ Calcium Gluconate 10 meq/ Multivitamins 10 ml/Chromium/ Copper/Manganese/ Seleni/Zn 0.5 ml/ Insulin Human Regular 35 unit/ Total Parenteral Nutrition/Amino Acids/Dextrose/ Fat Emulsion Intravenous 1,920 ml @ 80 mls/hr TPN CONT IV Last administered on 08/16/19at 22:02; Start 08/16/19 at 22:00; Stop 08/17/19 at 21:59; Status DC Hydromorphone HCl (Dilaudid Standard ENVIRONMENTAL ENGINEERING INTERN) 12 mg STK-MED ONCE IV ; Start 08/15/19 at 14:35; Stop 08/16/19 at 13:53; Status DC Artificial Tears (Artificial Tears) 1 drop PRN Q15MIN PRN OU DRY EYE Last administered on 09/05/19at 08:08; Start 08/17/19 at 05:30 Hydromorphone HCl (Dilaudid Standard ENVIRONMENTAL ENGINEERING INTERN) 12 mg STK-MED ONCE IV ; Start 08/16/19 at 12:05; Stop 08/17/19 at 09:15; Status DC Potassium Acetate 65 meq/Magnesium Sulfate 20 meq/ Calcium Gluconate 10 meq/ Multivitamins 10 ml/Chromium/ Copper/Manganese/ Seleni/Zn 0.5 ml/ Insulin Human Regular 30 unit/ Total Parenteral Nutrition/Amino Acids/Dextrose/ Fat Emulsion Intravenous 1,920 ml @ 80 mls/hr TPN CONT IV Last administered on 08/17/19at 22:22; Start 08/17/19 at 22:00; Stop 08/18/19 at 21:59; Status DC Cyclobenzaprine HCl (Flexeril) 10 mg PRN Q6HRS PRN PO MUSCLE SPASMS; Start 08/18/19 at 10:45 Potassium Acetate 55 meq/Magnesium Sulfate 20 meq/ Calcium Gluconate 10 meq/ Multivitamins 10 ml/Chromium/ Copper/Manganese/ Seleni/Zn 0.5 ml/ Insulin Human Regular 30 unit/ Total Parenteral Nutrition/Amino Acids/Dextrose/ Fat Emulsion Intravenous 1,920 ml @ 80 mls/hr TPN CONT IV Last administered on 08/19/19at 01:00; Start 08/18/19 at 22:00; Stop 08/19/19 at 21:59; Status DC Magnesium Sulfate 50 ml @ 25 mls/hr 1X ONCE IV Last administered on 08/18/19at 17:18; Start 08/18/19 at 12:45; Stop 08/18/19 at 14:44; Status DC Potassium Chloride/Water 100 ml @ 100 mls/hr 1X ONCE IV Last administered on 08/19/19at 11:27; Start 08/19/19 at 12:00; Stop 08/19/19 at 12:59; Status DC Hydromorphone HCl (Dilaudid Standard ENVIRONMENTAL ENGINEERING INTERN) 12 mg STK-MED ONCE IV ; Start 08/17/19 at 10:50; Stop 08/19/19 at 11:02; Status DC Hydromorphone HCl (Dilaudid Standard ENVIRONMENTAL ENGINEERING INTERN) 12 mg STK-MED ONCE IV ; Start 08/18/19 at 13:47; Stop 08/19/19 at 11:03; Status DC Potassium Acetate 30 meq/Magnesium Sulfate 20 meq/ Calcium Gluconate 10 meq/ Multivitamins 10 ml/Chromium/ Copper/Manganese/ Seleni/Zn 0.5 ml/ Insulin Human Regular 30 unit/ Potassium Chloride 30 meq/ Total Parenteral Nutrition/Amino Acids/Dextrose/ Fat Emulsion Intravenous 1,920 ml @ 80 mls/hr TPN CONT IV Last administered on 08/19/19at 22:34; Start 08/19/19 at 22:00; Stop 08/20/19 at 21:59; Status DC Potassium Chloride/Water 100 ml @ 100 mls/hr Q1H IV Last administered on 08/20/19at 13:05; Start 08/20/19 at 07:00; Stop 08/20/19 at 10:59; Status DC Magnesium Sulfate 50 ml @ 25 mls/hr 1X ONCE IV Last administered on 08/20/19at 10:34; Start 08/20/19 at 10:30; Stop 08/20/19 at 12:29; Status DC Potassium Chloride 75 meq/ Magnesium Sulfate 20 meq/Calcium Gluconate 10 meq/ Multivitamins 10 ml/Chromium/ Copper/Manganese/ Seleni/Zn 0.5 ml/ Insulin Human Regular 30 unit/ Total Parenteral Nutrition/Amino Acids/Dextrose/ Fat Emulsion Intravenous 1,920 ml @ 80 mls/hr TPN CONT IV Last administered on 08/20/19at 21:51; Start 08/20/19 at 22:00; Stop 08/21/19 at 22:00; Status DC Potassium Chloride 75 meq/ Magnesium Sulfate 20 meq/Calcium Gluconate 10 meq/ Multivitamins 10 ml/Chromium/ Copper/Manganese/ Seleni/Zn 0.5 ml/ Insulin Human Regular 25 unit/ Total Parenteral Nutrition/Amino Acids/Dextrose/ Fat Emulsion Intravenous 1,920 ml @ 80 mls/hr TPN CONT IV Last administered on 08/21/19at 22:04; Start 08/21/19 at 22:00; Stop 08/22/19 at 21:59; Status DC Hydromorphone HCl (Dilaudid) 0.4 mg PRN Q4HRS PRN IVP PAIN Last administered on 08/22/19at 10:57; Start 08/22/19 at 09:00; Stop 08/22/19 at 18:59; Status DC Micafungin Sodium 100 mg/Dextrose 100 ml @ 100 mls/hr Q24H IV Last administered on 09/08/19at 10:53; Start 08/22/19 at 11:00 Daptomycin 485 mg/ Sodium Chloride 50 ml @ 100 mls/hr Q24H IV Last administered on 08/29/19at 13:10; Start 08/22/19 at 11:00; Stop 08/30/19 at 07:44; Status DC Potassium Chloride 75 meq/ Magnesium Sulfate 15 meq/Calcium Gluconate 8 meq/ Multivitamins 10 ml/Chromium/ Copper/Manganese/ Seleni/Zn 0.5 ml/ Insulin Human Regular 25 unit/ Total Parenteral Nutrition/Amino Acids/Dextrose/ Fat Emulsion Intravenous 1,920 ml @ 80 mls/hr TPN CONT IV Last administered on 08/22/19at 23:08; Start 08/22/19 at 22:00; Stop 08/23/19 at 21:59; Status DC Haloperidol Lactate (Haldol Inj) 3 mg 1X ONCE IVP Last administered on 08/22/19at 14:37; Start 08/22/19 at 14:30; Stop 08/22/19 at 14:31; Status DC Hydromorphone HCl (Dilaudid) 1 mg PRN Q4HRS PRN IVP PAIN Last administered on 09/05/19at 06:25; Start 08/22/19 at 19:00; Stop 09/05/19 at 17:10; Status DC Potassium Chloride 75 meq/ Magnesium Sulfate 15 meq/Calcium Gluconate 8 meq/ Multivitamins 10 ml/Chromium/ Copper/Manganese/ Seleni/Zn 0.5 ml/ Insulin Human Regular 20 unit/ Total Parenteral Nutrition/Amino Acids/Dextrose/ Fat Emulsion Intravenous 1,920 ml @ 80 mls/hr TPN CONT IV Last administered on 08/23/19at 22:10; Start 08/23/19 at 22:00; Stop 08/24/19 at 21:59; Status DC Lidocaine HCl (Buffered Lidocaine 1%) 3 ml STK-MED ONCE .ROUTE ; Start 08/24/19 a t 11:31; Stop 08/24/19 at 11:31; Status DC Lidocaine HCl (Buffered Lidocaine 1%) 3 ml STK-MED ONCE .ROUTE ; Start 08/24/19 at 12:28; Stop 08/24/19 at 12:29; Status DC Lidocaine HCl (Buffered Lidocaine 1%) 6 ml 1X ONCE INJ Last administered on 08/24/19at 12:53; Start 08/24/19 at 12:45; Stop 08/24/19 at 12:46; Status DC Potassium Chloride 75 meq/ Magnesium Sulfate 15 meq/Calcium Gluconate 8 meq/ Multivitamins 10 ml/Chromium/ Copper/Manganese/ Seleni/Zn 0.5 ml/ Insulin Human Regular 20 unit/ Total Parenteral Nutrition/Amino Acids/Dextrose/ Fat Emulsion Intravenous 1,920 ml @ 80 mls/hr TPN CONT IV Last administered on 08/24/19at 22:00; Start 08/24/19 at 22:00; Stop 08/25/19 at 21:59; Status DC Potassium Chloride 75 meq/ Magnesium Sulfate 15 meq/Calcium Gluconate 8 meq/ Multivitamins 10 ml/Chromium/ Copper/Manganese/ Seleni/Zn 0.5 ml/ Insulin Human Regular 15 unit/ Total Parenteral Nutrition/Amino Acids/Dextrose/ Fat Emulsion Intravenous 1,920 ml @ 80 mls/hr TPN CONT IV Last administered on 08/25/19at 22:28; Start 08/25/19 at 22:00; Stop 08/26/19 at 21:59; Status DC Vecuronium [place] (Norcuron Bolus) 6 mg PRN Q6HRS PRN IV VENT ASYNCHRONY; Start 08/25/19 at 19:15; Stop 08/25/19 at 19:35; Status DC Bumetanide (Bumex) 2 mg 1X ONCE IV Last administered on 08/25/19at 22:09; Start 08/25/19 at 19:45; Stop 08/25/19 at 19:46; Status DC Lidocaine HCl (Buffered Lidocaine 1%) 3 ml STK-MED ONCE .ROUTE ; Start 08/26/19 at 07:59; Stop 08/26/19 at 07:59; Status DC Midazolam HCl (Versed) 5 mg STK-MED ONCE .ROUTE ; Start 08/26/19 at 08:36; Stop 08/26/19 at 08:36; Status DC Fentanyl Citrate (Fentanyl 5ml Vial) 250 mcg STK-MED ONCE .ROUTE ; Start 08/26/19 at 08:36; Stop 08/26/19 at 08:37; Status DC Lidocaine HCl (Buffered Lidocaine 1%) 3 ml 1X ONCE IJ Last administered on 08/26/19at 09:30; Start 08/26/19 at 09:15; Stop 08/26/19 at 09:16; Status DC Midazolam HCl (Versed) 5 mg 1X ONCE IV Last administered on 08/26/19at 09:30; Start 08/26/19 at 09:15; Stop 08/26/19 at 09:16; Status DC Fentanyl Citrate (Fentanyl 5ml Vial) 250 mcg 1X ONCE IV Last administered on 08/26/19at 09:30; Start 08/26/19 at 09:15; Stop 08/26/19 at 09:16; Status DC Bumetanide (Bumex) 2 mg DAILY IV Last administered on 09/05/19at 08:07; Start 08/26/19 at 10:00; Stop 09/05/19 at 17:15; Status DC Potassium Chloride 75 meq/ Magnesium Sulfate 15 meq/ Multivitamins 10 ml/Chromium/ Copper/Manganese/ Seleni/Zn 0.5 ml/ Insulin Human Regular 15 unit/ Total Parenteral Nutrition/Amino Acids/Dextrose/ Fat Emulsion Intravenous 1,920 ml @ 80 mls/hr TPN CONT IV Last administered on 08/26/19at 21:59; Start 08/26/19 at 22:00; Stop 08/27/19 at 21:59; Status DC Metoclopramide HCl (Reglan Vial) 10 mg PRN Q3HRS PRN IVP NAUSEA/VOMITING-3rd choice Last administered on 09/01/19at 04:25; Start 08/27/19 at 16:45 Potassium Chloride 75 meq/ Magnesium Sulfate 15 meq/ Multivitamins 10 ml/Chromium/ Copper/Manganese/ Seleni/Zn 0.5 ml/ Insulin Human Regular 15 unit/ Total Parenteral Nutrition/Amino Acids/Dextrose/ Fat Emulsion Intravenous 1,920 ml @ 80 mls/hr TPN CONT IV Last administered on 08/27/19at 22:41; Start 08/27/19 at 22:00; Stop 08/28/19 at 21:59; Status DC Magnesium Sulfate 50 ml @ 25 mls/hr 1X ONCE IV Last administered on 08/28/19at 10:44; Start 08/28/19 at 09:00; Stop 08/28/19 at 10:59; Status DC Potassium Chloride/Water 100 ml @ 100 mls/hr 1X ONCE IV Last administered on 08/28/19at 09:37; Start 08/28/19 at 09:00; Stop 08/28/19 at 09:59; Status DC Duloxetine HCl (Cymbalta) 30 mg DAILY PO Last administered on 08/29/19at 09:48; Start 08/28/19 at 14:00; Stop 08/31/19 at 10:25; Status DC Potassium Chloride 80 meq/ Magnesium Sulfate 20 meq/ Multivitamins 10 ml/Chromium/ Copper/Manganese/ Seleni/Zn 0.5 ml/ Insulin Human Regular 15 unit/ Total Parenteral Nutrition/Amino Acids/Dextrose/ Fat Emulsion Intravenous 1,920 ml @ 80 mls/hr TPN CONT IV Last administered on 08/28/19at 21:42; Start 08/28/19 at 22:00; Stop 08/29/19 at 21:59; Status DC Potassium Chloride 80 meq/ Magnesium Sulfate 20 meq/ Multivitamins 10 ml/Chromium/ Copper/Manganese/ Seleni/Zn 0.5 ml/ Insulin Human Regular 15 unit/ Total Parenteral Nutrition/Amino Acids/Dextrose/ Fat Emulsion Intravenous 1,920 ml @ 80 mls/hr TPN CONT IV Last administered on 08/29/19at 22:20; Start 08/29/19 at 22:00; Stop 08/30/19 at 21:59; Status DC Lidocaine HCl (Buffered Lidocaine 1%) 3 ml STK-MED ONCE .ROUTE ; Start 08/30/19 at 09:54; Stop 08/30/19 at 09:55; Status DC Hydromorphone HCl (Dilaudid Standard [employer]) 12 mg STK-MED ONCE IV ; Start 08/19/19 at 15:50; Stop 08/30/19 at 11:24; Status DC Potassium Chloride 80 meq/ Magnesium Sulfate 20 meq/ Multivitamins 10 ml /Chromium/ Copper/Manganese/ Seleni/Zn 0.5 ml/ Insulin Human Regular 15 unit/ Total Parenteral Nutrition/Amino Acids/Dextrose/ Fat Emulsion Intravenous 1,920 ml @ 80 mls/hr TPN CONT IV Last administered on 08/30/19at 21:40; Start 08/30/19 at 22:00; Stop 08/31/19 at 21:59; Status DC Lidocaine HCl (Buffered Lidocaine 1%) 6 ml 1X ONCE INJ Last administered on 08/30/19at 14:15; Start 08/30/19 at 14:15; Stop 08/30/19 at 14:16; Status DC Potassium Chloride 80 meq/ Magnesium Sulfate 20 meq/ Multivitamins 10 m l/Chromium/ Copper/Manganese/ Seleni/Zn 1 ml/ Insulin Human Regular 15 unit/ Total Parenteral Nutrition/Amino Acids/Dextrose/ Fat Emulsion Intravenous 1,920 ml @ 80 mls/hr TPN CONT IV Last administered on 08/31/19at 22:04; Start 08/31/19 at 22:00; Stop 09/01/19 at 21:59; Status DC Potassium Chloride/Water 100 ml @ 100 mls/hr 1X ONCE IV Last administered on 09/01/19at 11:34; Start 09/01/19 at 11:00; Stop 09/01/19 at 11:59; Status DC Potassium Chloride 90 meq/ Magnesium Sulfate 20 meq/ Multivitamins 10 ml/Chromium/ Copper/Manganese/ Seleni/Zn 1 ml/ Insulin Human Regular 15 unit/ Total Parenteral Nutrition/Amino Acids/Dextrose/ Fat Emulsion Intravenous 1,920 ml @ 80 mls/hr TPN CONT IV Last administered on 09/01/19at 22:57; Start 09/01/19 at 22:00; Stop 09/02/19 at 21:59; Status DC Potassium Chloride 90 meq/ Magnesium Sulfate 20 meq/ Multivitamins 10 ml/Chromium/ Copper/Manganese/ Seleni/Zn 1 ml/ Insulin Human Regular 15 unit/ Total Parenteral Nutrition/Amino Acids/Dextrose/ Fat Emulsion Intravenous 1,920 ml @ 80 mls/hr TPN CONT IV Last administered on 09/02/19at 22:48; Start 09/02/19 at 22:00; Stop 09/03/19 at 21:59; Status DC Potassium Chloride 90 meq/ Magnesium Sulfate 20 meq/ Multivitamins 10 ml/Chromium/ Copper/Manganese/ Seleni/Zn 1 ml/ Insulin Human Regular 15 unit/ Total Parenteral Nutrition/Amino Acids/Dextrose/ Fat Emulsion Intravenous 1,890 ml @ 78.75 mls/ hr TPN CONT IV Last administered on 09/03/19at 22:15; Start 09/03/19 at 22:00; Stop 09/04/19 at 21:59; Status DC Linezolid/Dextrose 300 ml @ 300 mls/hr Q12HR IV Last administered on 09/06/19at 21:08; Start 09/04/19 at 09:00; Stop 09/07/19 at 08:11; Status DC Daptomycin 450 mg/ Sodium Chloride 50 ml @ 100 mls/hr Q24H IV Last administered on 09/07/19at 09:25; Start 09/04/19 at 09:00; Stop 09/08/19 at 08:30; Status DC Potassium Chloride 90 meq/ Magnesium Sulfate 20 meq/ Multivitamins 10 ml/Chromium/ Copper/Manganese/ Seleni/Zn 1 ml/ Insulin Human Regular 15 unit/ Total Parenteral Nutrition/Amino Acids/Dextrose/ Fat Emulsion Intravenous 1,890 ml @ 78.75 mls/ hr TPN CONT IV Last administered on 09/04/19at 21:34; Start 09/04/19 at 22:00; Stop 09/05/19 at 21:59; Status DC Lorazepam (Ativan Inj) 2 mg STK-MED ONCE .ROUTE ; Start 09/04/19 at 14:58; Stop 09/04/19 at 14:58; Status DC Metoprolol Tartrate (Lopressor Vial) 5 mg 1X ONCE IVP Last administered on 09/04/19at 15:31; Start 09/04/19 at 15:15; Stop 09/04/19 at 15:16; Status DC Lorazepam (Ativan Inj) 2 mg 1X ONCE IVP Last administered on 09/04/19at 15:30; Start 09/04/19 at 15:15; Stop 09/04/19 at 15:16; Status DC Enoxaparin Sodium (Lovenox 40mg Syringe) 40 mg Q24H SQ Last administered on 09/08/19at 17:06; Start 09/04/19 at 17:00 Lorazepam (Ativan Inj) 1 mg PRN Q4HRS PRN IVP ANXIETY / AGITATION MILD-MOD; Start 09/04/19 at 19:15 Lorazepam (Ativan Inj) 2 mg PRN Q4HRS PRN IVP ANXIETY / AGITATION SEVERE Last administered on 09/05/19at 22:20; Start 09/04/19 at 19:15 Fentanyl Citrate (Fentanyl 2ml Vial) 50 mcg PRN Q4HRS PRN IVP SEVERE PAIN Last administered on 09/07/19at 05:00; Start 09/05/19 at 13:15 Fentanyl Citrate (Fentanyl 2ml Vial) 25 mcg PRN Q4HRS PRN IVP MODERATE PAIN Last administered on 09/09/19at 10:01; Start 09/05/19 at 13:15 Potassium Chloride 90 meq/ Magnesium Sulfate 20 meq/ Multivitamins 10 ml/Chromium/ Copper/Manganese/ Seleni/Zn 1 ml/ Insulin Human Regular 15 unit/ Total Parenteral Nutrition/Amino Acids/Dextrose/ Fat Emulsion Intravenous 1,890 ml @ 78.75 mls/ hr TPN CONT IV Last administered on 09/05/19at 22:18; Start 09/05/19 at 22:00; Stop 09/06/19 at 21:59; Status DC Furosemide (Lasix) 40 mg 1X ONCE IVP Last administered on 09/05/19at 21:51; Start 09/05/19 at 21:45; Stop 09/05/19 at 21:48; Status DC Albumin Human 100 ml @ 100 mls/hr 1X PRN PRN IV SEE COMMENTS; Start 09/06/19 at 01:30 Furosemide (Lasix) 40 mg [id number] IVP Last administered on 09/09/19at 08:31; Start 09/06/19 at 14:00 Potassium Chloride 90 meq/ Magnesium Sulfate 20 meq/ Multivitamins 10 ml/Chromium/ Copper/Manganese/ Seleni/Zn 1 ml/ Insulin Human Regular 15 unit/ Total Parenteral Nutrition/Amino Acids/Dextrose/ Fat Emulsion Intravenous 1,800 ml @ 75 mls/hr TPN CONT IV Last administered on 09/06/19at 22:31; Start 09/06/19 at 22:00; Stop 09/07/19 at 21:59; Status DC Potassium Chloride 90 meq/ Magnesium Sulfate 20 meq/ Multivitamins 10 ml/Chromium/ Copper/Manganese/ Seleni/Zn 1 ml/ Insulin Human Regular 15 unit/ Total Parenteral Nutrition/Amino Acids/Dextrose/ Fat Emulsion Intravenous 1,800 ml @ 75 mls/hr TPN CONT IV Last administered on 09/07/19at 22:28; Start 09/07/19 at 22:00; Stop 09/08/19 at 21:59; Status DC Potassium Chloride 110 meq/ Magnesium Sulfate 20 meq/ Multivitamins 10 ml/Chromium/ Copper/Manganese/ Seleni/Zn 1 ml/ Insulin Human Regular 15 unit/ Total Parenteral Nutrition/Amino Acids/Dextrose/ Fat Emulsion Intravenous 1,800 ml @ 75 mls/hr TPN CONT IV Last administered on 09/08/19at 22:01; Start 09/08/19 at 22:00; Stop 09/09/19 at 21:59 Saliva Substitute (Biotene Moisturizing Mouth) 2 spray PRN Q15MIN PRN PO DRY MOUTH; Start 09/08/19 at 11:00 Active Scripts Active Reported Bisoprolol Fumarate 5 Mg Tablet 10 Mg PO DAILY Vitals/I & O Vital Sign - Last 24 Hours 09/08/19 09/08/19 09/08/19 09/08/19 11:51 12:00 13:00 13:02 Temp 98.4 98.4 Pulse 110 116 Resp 33 41 40 B/P (MAP) 163/80 (107) 164/85 (111) Pulse Ox 96 96 94 O2 Delivery Trach Collar Tracheal Collar Tracheal Collar Tracheal Collar O2 Flow Rate 8.0 8.0 8.0 8.0 09/08/19 09/08/19 09/08/19 09/08/19 13:38 14:00 15:00 16:00 Temp 98.7 98.7 Pulse 94 110 89 Resp 36 18 36 24 B/P (MAP) 148/86 (106) 173/99 (123) 112/62 (79) Pulse Ox 94 96 94 96 O2 Delivery Tracheal Collar Tracheal Collar Tracheal Collar Tracheal Collar O2 Flow Rate 8.0 8.0 8.0 8.0 09/08/19 09/08/19 09/08/19 09/08/19 16:00 17:00 17:07 17:44 Pulse 88 Resp 25 26 31 B/P (MAP) 128/81 (97) Pulse Ox 99 99 99 O2 Delivery Trach Collar Tracheal Collar Tracheal Collar Tracheal Collar O2 Flow Rate 8.0 8.0 8.0 8.0 09/08/19 09/08/19 09/08/19 09/08/19 18:00 19:00 20:00 20:00 Temp 98.3 98.3 Pulse 92 88 92 Resp 28 24 28 B/P (MAP) 140/68 (92) 119/68 (85) 118/75 (89) Pulse Ox 99 99 95 O2 Delivery Tracheal Collar Tracheal Collar Trach Collar Tracheal Collar O2 Flow Rate 8.0 8.0 8.0 8.0 09/08/19 09/08/19 09/08/19 09/08/19 21:00 21:15 21:47 22:00 Pulse 100 98 Resp 35 28 31 B/P (MAP) 157/73 (101) 141/73 (95) Pulse Ox 99 100 100 100 O2 Delivery Tracheal Collar Tracheal Collar Tracheal Collar Tracheal Collar O2 Flow Rate 8.0 8.0 8.0 09/08/19 09/08/19 09/09/19 09/09/19 22:17 23:00 00:00 00:00 Temp 98.6 98.6 Pulse 94 84 Resp 19 32 22 B/P (MAP) 101/68 (79) 98/55 (69) Pulse Ox 100 100 100 O2 Delivery Tracheal Collar Tracheal Collar Tracheal Collar Trach Collar O2 Flow Rate 8.0 8.0 8.0 8.0 09/09/19 09/09/19 09/09/19 09/09/19 01:00 02:00 03:00 04:00 Temp 99.2 99.2 Pulse 78 78 82 92 Resp 21 19 19 34 B/P (MAP) 106/53 (70) 112/75 (87) 114/63 (80) 136/74 (94) Pulse Ox 100 100 100 97 O2 Delivery Tracheal Collar Tracheal Collar Tracheal Collar Tracheal Collar O2 Flow Rate 8.0 8.0 8.0 8.0 09/09/19 09/09/19 09/09/19 09/09/19 04:00 05:00 05:59 06:00 Pulse 92 88 Resp 28 47 29 B/P (MAP) 118/59 (78) 102/60 (74) Pulse Ox 99 99 99 O2 Delivery Trach Collar Tracheal Collar Tracheal Collar Tracheal Collar O2 Flow Rate 8.0 8.0 8.0 8.0 09/09/19 09/09/19 09/09/19 09/09/19 07:00 07:48 07:50 08:00 Temp 99.2 99.2 Pulse 86 86 Resp 28 24 21 B/P (MAP) 113/61 (78) 118/67 (84) Pulse Ox 98 99 96 98 O2 Delivery Tracheal Collar Tracheal Collar Tracheal Collar Tracheal Collar O2 Flow Rate 8.0 8.0 8.0 09/09/19 09/09/19 09/09/19 09/09/19 08:00 09:00 10:00 10:01 Pulse 98 101 Resp 33 36 28 B/P (MAP) 140/72 (94) 146/66 (92) Pulse Ox 99 99 98 O2 Delivery Trach Collar Tracheal Collar Tracheal Collar Tracheal Collar O2 Flow Rate 8.0 8.0 8.0 8.0 09/09/19 10:41 Resp 28 Pulse Ox 98 O2 Delivery Tracheal Collar O2 Flow Rate 8.0 Intake and Output 09/08/19 09/08/19 09/09/19 15:00 23:00 07:00 Intake Total 260 ml 1084.10 ml 0 ml Output Total 1840 ml 915 ml 995 ml Balance -1580 ml 169.10 ml -995 ml Hemodynamically unstable?: No Is patient in severe pain?: No Is NPO status required?: Yes GREG HERRERA MD September 09, 2019 11:05
[2019-09-09] MEDS: MICAFUNGIN 100 MG in IV DEXTROSE 5% 100ML 100 ML IV SCH (11:17)
--- NOTE | 2019-09-09 11:30 | PDOC ---
SURGICAL PROGRESS NOTE Subjective Pt sitting up in chair, nods yes to doing OK Vital Signs Vital Signs Date Time Temp Pulse Resp B/P (MAP) Pulse Ox O2 Delivery O2 Flow Rate FiO2 09/09/19 10:41 28 98 Tracheal Collar 8.0 09/09/19 10:00 101 146/66 (92) 09/09/19 08:00 99.2 99.2 I&O Intake and Output 09/09/19 07:00 Intake Total 1344.10 ml Output Total 3750 ml Balance -2405.90 ml Intake Oral 0 ml IV Total 1344.10 ml Output Urine Total 2845 ml Gastric Drainage Total 400 ml Drainage Total 505 ml General: Alert, Cooperative, No acute distress Abdomen: Soft, No tenderness Labs Laboratory Tests Test 09/07/19 12:31 09/07/19 16:28 09/08/19 00:44 09/08/19 06:10 Glucose (Fingerstick) 258 mg/dL (70-99) 141 mg/dL (70-99) 165 mg/dL (70-99) White Blood Count 8.3 x10^3/uL (4.0-11.0) Red Blood Count 2.72 x10^6/uL (3.50-5.40) Hemoglobin 7.8 g/dL (12.0-15.5) Hematocrit 23.8 % (36.0-47.0) Mean Corpuscular Volume 87 fL (79-100) Mean Corpuscular Hemoglobin 29 pg (25-35) Mean Corpuscular Hemoglobin Concent 33 g/dL (31-37) Red Cell Distribution Width 18.2 % (11.5-14.5) Platelet Count 380 x10^3/uL (140-400) Sodium Level 139 mmol/L (136-145) Potassium Level 4.0 mmol/L (3.5-5.1) Chloride Level 100 mmol/L (98-107) Carbon Dioxide Level 39 mmol/L (21-32) Anion Gap 0 (6-14) Blood Urea Nitrogen 24 mg/dL (7-20) Creatinine 0.7 mg/dL (0.6-1.0) Estimated GFR (Cockcroft-Gault) 88.9 Glucose Level 118 mg/dL (70-99) Calcium Level 8.6 mg/dL (8.5-10.1) Phosphorus Level 3.0 mg/dL (2.6-4.7) Magnesium Level 1.9 mg/dL (1.8-2.4) Test 09/08/19 06:22 09/08/19 12:06 09/09/19 00:39 09/09/19 06:04 Glucose (Fingerstick) 122 mg/dL (70-99) 192 mg/dL (70-99) 149 mg/dL (70-99) 164 mg/dL (70-99) Test 09/09/19 08:40 09/09/19 11:25 White Blood Count 8.8 x10^3/uL (4.0-11.0) Red Blood Count 2.77 x10^6/uL (3.50-5.40) Hemoglobin 7.9 g/dL (12.0-15.5) Hematocrit 24.4 % (36.0-47.0) Mean Corpuscular Volume 88 fL (79-100) Mean Corpuscular Hemoglobin 29 pg (25-35) Mean Corpuscular Hemoglobin Concent 33 g/dL (31-37) Red Cell Distribution Width 18.7 % (11.5-14.5) Platelet Count 348 x10^3/uL (140-400) Sodium Level 140 mmol/L (136-145) Potassium Level 4.3 mmol/L (3.5-5.1) Chloride Level 99 mmol/L (98-107) Carbon Dioxide Level 36 mmol/L (21-32) Anion Gap 5 (6-14) Blood Urea Nitrogen 22 mg/dL (7-20) Creatinine 0.6 mg/dL (0.6-1.0) Estimated GFR (Cockcroft-Gault) 106.3 Glucose Level 126 mg/dL (70-99) Calcium Level 9.3 mg/dL (8.5-10.1) Phosphorus Level 3.7 mg/dL (2.6-4.7) Magnesium Level 2.1 mg/dL (1.8-2.4) Glucose (Fingerstick) 157 mg/dL (70-99) Laboratory Tests Test 09/08/19 12:06 09/09/19 00:39 09/09/19 06:04 09/09/19 08:40 Glucose (Fingerstick) 192 mg/dL (70-99) 149 mg/dL (70-99) 164 mg/dL (70-99) White Blood Count 8.8 x10^3/uL (4.0-11.0) Red Blood Count 2.77 x10^6/uL (3.50-5.40) Hemoglobin 7.9 g/dL (12.0-15.5) Hematocrit 24.4 % (36.0-47.0) Mean Corpuscular Volume 88 fL (79-100) Mean Corpuscular Hemoglobin 29 pg (25-35) Mean Corpuscular Hemoglobin Concent 33 g/dL (31-37) Red Cell Distribution Width 18.7 % (11.5-14.5) Platelet Count 348 x10^3/uL (140-400) Sodium Level 140 mmol/L (136-145) Potassium Level 4.3 mmol/L (3.5-5.1) Chloride Level 99 mmol/L (98-107) Carbon Dioxide Level 36 mmol/L (21-32) Anion Gap 5 (6-14) Blood Urea Nitrogen 22 mg/dL (7-20) Creatinine 0.6 mg/dL (0.6-1.0) Estimated GFR (Cockcroft-Gault) 106.3 Glucose Level 126 mg/dL (70-99) Calcium Level 9.3 mg/dL (8.5-10.1) Phosphorus Level 3.7 mg/dL (2.6-4.7) Magnesium Level 2.1 mg/dL (1.8-2.4) Test 09/09/19 11:25 Glucose (Fingerstick) 157 mg/dL (70-99) Problem List Problems Medical Problems: (1) Acute pancreatitis Status: Acute (2) Cholelithiasis Status: Acute Assessment/Plan s/p lap exploration cont drains and supportive care. DAVON SIMMS MD September 09, 2019 11:30
[2019-09-09] MEDS: TPN PER PHARMACY MC PRN (12:07)
--- NOTE | 2019-09-09 12:07 | NUR ---
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, 8 inches Weight: 78.5 kg Current diet: NPO LABS: Sodium: 140 Potassium: 4.3 Chloride: 99 Calcium: 9.3 Corrected Calcium: 10.74 Magnesium: 2.1 CO2: 36 SCr: 0.6 Glucose: 126-164 Albumin: 2.2 AST: 50 ALT: 50 TPN FORMULA: TPN TYPE: Central Continuous AMINO ACIDS: 70 gm DEXTROSE: 250 gm LIPIDS: 30 gm POTASSIUM CHLORIDE: 110 mEq MAGNESIUM: 20 mEq INSULIN: 15 units MULTIPLE VITAMIN: 10 ml TRACE ELEMENTS: 1 ml(s) TPN PLAN: Electrolytes stable. Cont same TPN formula. -Labs on Thursday. R: Continue same TPN formula. Will monitor electrolytes, glucose, and tolerance to TPN. MIKAYLA CHU RPH, 09/09/19 [id number]
[2019-09-09] MEDS: IV NORMAL SALINE 1000ML BAG 1,000 ML IV SCH (13:48)
--- NOTE | 2019-09-09 15:08 | PDOC ---
PULMONARY PROGRESS NOTES Subjective Patient looks a lot better today sitting up in the chair utilizing Passy-Luis Fernando valve able to phonate Patient intubated on 07/10 , s/p trach 07/24, Vitals Vital Signs Date Time Temp Pulse Resp B/P (MAP) Pulse Ox O2 Delivery O2 Flow Rate FiO2 09/09/19 15:00 24 99 Tracheal Collar 8.0 09/09/19 14:00 103 149/80 (103) 09/09/19 12:00 99.2 99.2 ROS: No Chest Pain, No Abdominal Pain, No Increase Cough General: Alert, No acute distress HEENT: Other (nc at perrl neck trach site ok no lad no thyromegaly) Lungs: Wheezing, Other (decrease bs) Cardiovascular: S1, S2 Abdomen: Soft, Non-tender, Other (distended) Neuro Exam: Alert Extremities: Other (+3 generalized edema ) Skin: Warm, Dry Labs Laboratory Tests Test 09/07/19 16:28 09/08/19 00:44 09/08/19 06:10 09/08/19 06:22 Glucose (Fingerstick) 141 mg/dL (70-99) 165 mg/dL (70-99) 122 mg/dL (70-99) White Blood Count 8.3 x10^3/uL (4.0-11.0) Red Blood Count 2.72 x10^6/uL (3.50-5.40) Hemoglobin 7.8 g/dL (12.0-15.5) Hematocrit 23.8 % (36.0-47.0) Mean Corpuscular Volume 87 fL (79-100) Mean Corpuscular Hemoglobin 29 pg (25-35) Mean Corpuscular Hemoglobin Concent 33 g/dL (31-37) Red Cell Distribution Width 18.2 % (11.5-14.5) Platelet Count 380 x10^3/uL (140-400) Sodium Level 139 mmol/L (136-145) Potassium Level 4.0 mmol/L (3.5-5.1) Chloride Level 100 mmol/L (98-107) Carbon Dioxide Level 39 mmol/L (21-32) Anion Gap 0 (6-14) Blood Urea Nitrogen 24 mg/dL (7-20) Creatinine 0.7 mg/dL (0.6-1.0) Estimated GFR (Cockcroft-Gault) 88.9 Glucose Level 118 mg/dL (70-99) Calcium Level 8.6 mg/dL (8.5-10.1) Phosphorus Level 3.0 mg/dL (2.6-4.7) Magnesium Level 1.9 mg/dL (1.8-2.4) Test 09/08/19 12:06 09/09/19 00:39 09/09/19 06:04 09/09/19 08:40 Glucose (Fingerstick) 192 mg/dL (70-99) 149 mg/dL (70-99) 164 mg/dL (70-99) White Blood Count 8.8 x10^3/uL (4.0-11.0) Red Blood Count 2.77 x10^6/uL (3.50-5.40) Hemoglobin 7.9 g/dL (12.0-15.5) Hematocrit 24.4 % (36.0-47.0) Mean Corpuscular Volume 88 fL (79-100) Mean Corpuscular Hemoglobin 29 pg (25-35) Mean Corpuscular Hemoglobin Concent 33 g/dL (31-37) Red Cell Distribution Width 18.7 % (11.5-14.5) Platelet Count 348 x10^3/uL (140-400) Sodium Level 140 mmol/L (136-145) Potassium Level 4.3 mmol/L (3.5-5.1) Chloride Level 99 mmol/L (98-107) Carbon Dioxide Level 36 mmol/L (21-32) Anion Gap 5 (6-14) Blood Urea Nitrogen 22 mg/dL (7-20) Creatinine 0.6 mg/dL (0.6-1.0) Estimated GFR (Cockcroft-Gault) 106.3 Glucose Level 126 mg/dL (70-99) Calcium Level 9.3 mg/dL (8.5-10.1) Phosphorus Level 3.7 mg/dL (2.6-4.7) Magnesium Level 2.1 mg/dL (1.8-2.4) Test 09/09/19 11:25 Glucose (Fingerstick) 157 mg/dL (70-99) Laboratory Tests Test 09/09/19 00:39 09/09/19 06:04 09/09/19 08:40 09/09/19 11:25 Glucose (Fingerstick) 149 mg/dL (70-99) 164 mg/dL (70-99) 157 mg/dL (70-99) White Blood Count 8.8 x10^3/uL (4.0-11.0) Red Blood Count 2.77 x10^6/uL (3.50-5.40) Hemoglobin 7.9 g/dL (12.0-15.5) Hematocrit 24.4 % (36.0-47.0) Mean Corpuscular Volume 88 fL (79-100) Mean Corpuscular Hemoglobin 29 pg (25-35) Mean Corpuscular Hemoglobin Concent 33 g/dL (31-37) Red Cell Distribution Width 18.7 % (11.5-14.5) Platelet Count 348 x10^3/uL (140-400) Sodium Level 140 mmol/L (136-145) Potassium Level 4.3 mmol/L (3.5-5.1) Chloride Level 99 mmol/L (98-107) Carbon Dioxide Level 36 mmol/L (21-32) Anion Gap 5 (6-14) Blood Urea Nitrogen 22 mg/dL (7-20) Creatinine 0.6 mg/dL (0.6-1.0) Estimated GFR (Cockcroft-Gault) 106.3 Glucose Level 126 mg/dL (70-99) Calcium Level 9.3 mg/dL (8.5-10.1) Phosphorus Level 3.7 mg/dL (2.6-4.7) Magnesium Level 2.1 mg/dL (1.8-2.4) Medications Active Scripts Medications Dose Route/Sig Max Daily Dose Days Date Category Bisoprolol Fumarate 5 Mg Tablet 10 Mg PO DAILY 07/04/19 Reported Comments CXR reviewed. Impression . IMPRESSION: 1. Acute hypoxemic respiratory failure secondary to ARDS status post trach, 2. Gallstone pancreatitis 3. Severe metabolic acidosis.stable 4. Acute kidney injury-stable, Off HD-- continue to improve 5. Acute gallstone pancreatitis. 6. Hypoalbuminemia. 7. Moderate persistent effusions, s/p left thora 08/29 8. Fever- Per ID, per surgery--resolved 9. Chronic anemia 10. Covid 19 testing negative 11. Moderate to large ascites-S/P paracentisis 12.S/P paracentisis with 4 liters removed on 08/03/19 13. S/P IR drain placement on 08/26/2019 Plan . Continue current support Continue the same Lasix 40 mg twice daily Patient placed on assist control last evening for respiratory distress s/p thoracentesis, 08/29, 3 litres removed cap trach as tolerated Follow surgery recs-- S/P 3 drain placed in IR on 08/26/2019 Follow ID recs for ABX Follow nephrology recs Continue TPN DVT/GI PPX: heparin SQ/ protonix D/W RN and RT, pt CODE:FULL HARMEET BEE MD September 09, 2019 15:07
--- NOTE | 2019-09-09 16:05 | NUR ---
SS following up with discharge planning. SS reviewed pt chart and discussed with pt RN. Pt remains on trach collar with TPN, KAYLIN drains x3, NG tube, and IV antibiotics. Pt showing improvement with PT/OT. SS will continue to follow for discharge planning.
[2019-09-09] MEDS: ENOXAPARIN 40 MG/0.4 ML SYRINGE. SQ SCH (18:05)
[2019-09-09] MEDS ORDERED: [UNRECOGNIZED DRUG - OTHER] IV SCH ×8 (22:00)
[2019-09-09] MEDS ORDERED: AMINO ACID IV SCH ×8 (22:00)
[2019-09-09] MEDS ORDERED: TOTAL PARENTERAL NUTRITION IV SCH ×8 (22:00)
[2019-09-09] MEDS ORDERED: DEXTROSE 70% IV SCH ×8 (22:00)
[2019-09-10] VITALS (23 sets, daily range): BP systolic 87–168; BP diastolic 46–117
[2019-09-10] MEDS: fentaNYL PF VIAL 100 MCG/2 ML VIAL IVP PRN ×4 (02:40→22:40)
[2019-09-10] MEDS: ONDANSETRON PF 4 MG/2 ML VIAL. IV PRN ×3 (04:21→20:12)
[2019-09-10] MEDS: INSULIN LISPRO 300 UNITS/3 ML VIAL. SQ SCH ×5 (06:08→23:54)
--- NOTE | 2019-09-10 08:53 | PDOC ---
Infectious Disease Note Subjective Subjective Trach shield, FiO2 33% No fevers last 24 hrs Vital Sign Vital Signs Vital Signs Date Time Temp Pulse Resp B/P (MAP) Pulse Ox O2 Delivery O2 Flow Rate FiO2 09/10/19 08:00 Trach Collar 8.0 09/10/19 06:00 78 22 90/61 (71) 100 09/10/19 04:00 98.3 98.3 Physical Exam PHYSICAL EXAM GENERAL: Propped up in bed, arouses to name HEENT: oral cavity dry, NGT NECK: Trach shield LUNGS: Clear anteriorly, no accessory muscle use HEART: S1, S2, regular ABDOMEN: mod distention, hypoactive BS, tender, + drains x 3 : Lind (08/01) EXTREMITIES: Generalized edema, improving, no cyanosis, SCDs bilaterally SKIN: Warm and dry. No generalized rash. [employer] IN[employer]ER: Very weak RUE-PICC (08/17) clean Labs Lab Laboratory Tests Test 09/09/19 11:25 09/09/19 18:00 09/10/19 00:29 09/10/19 06:06 Glucose (Fingerstick) 157 mg/dL (70-99) 155 mg/dL (70-99) 144 mg/dL (70-99) 163 mg/dL (70-99) Micro 08/21. BLOOD CULTURE Preliminary NO GROWTH AFTER 5 DAYS 08/14. abd fluid AEROBIC RES 1 Final Organism Identification, Yeast Kiana parapsilosis 08/23. abd fluid ANAEROBIC-AEROBIC CULTURE PENDING Objective Assessment Fever intermittent could be from underlying pancreatitis - better ? Ileus with vomiting Abd distention - U/S and CT reviewed s/p 0.4 L of opaque, debris-containing ascites was removed 08/23 Acute pancreatitis with persistent necrosis - 08/14 status post KAYLIN drain placement + C paropsilosis; 08/23 + yeast & high amylase; s/p additional drains on 08/25 Anemia - S/p PRBCs Cholelithiasis with thickening of the gallbladder wall. Leucocytosis improved JUANA, hyperkalemia, Metabolic acidosis off dialysis Acute hypoxic resp failure ,bilateral pleural effusion and atelectasis hypocalcemia Prediabetes HTN s/p trach Plan Plan of Care cont Micafungin Off dapto/zyvox/merrem Maintain aspiration precaution Supportive care Attending Co-Sign The patient was seen and interviewed as well as examined at the bedside. The chart was reviewed. The case was discussed. Agree with the plan of care. FRANCA HOBSON APRN September 10, 2019 08:53 YUNIOR JONES MD September 10, 2019 11:50
[2019-09-10] MEDS: PANTOPRAZOLE IV PUSH 40 MG VIAL. IVP SCH (10:33)
[2019-09-10] MEDS: MICAFUNGIN 100 MG in IV DEXTROSE 5% 100ML 100 ML IV SCH (10:33)
[2019-09-10] MEDS: FUROSEMIDE 40 MG/4 ML VIAL. IVP SCH ×2 (10:34→14:00)
[2019-09-10] MEDS: DEXMEDETOMIDINE 400 MCG in IV NORMAL SALINE 100ML 96 ML IV PRN ×2 (10:35→18:47)
--- NOTE | 2019-09-10 11:24 | PDOC ---
PULMONARY PROGRESS NOTES Subjective alert, is tired, tm, 30%, small ett secretion, Patient intubated on 07/10 , s/p trach 07/24, Vitals Vital Signs Date Time Temp Pulse Resp B/P (MAP) Pulse Ox O2 Delivery O2 Flow Rate FiO2 09/10/19 11:04 21 98 Tracheal Collar 8.0 09/10/19 11:00 108 100/63 (75) 09/10/19 08:00 98.5 98.5 ROS: No Chest Pain, No Abdominal Pain, No Increase Cough General: Alert, No acute distress HEENT: Other (nc at perrl neck trach site ok no lad no thyromegaly) Lungs: Wheezing, Other (decrease bs) Cardiovascular: S1, S2 Abdomen: Soft, Non-tender, Other (distended) Neuro Exam: Alert Extremities: Other (+3 generalized edema ) Skin: Warm, Dry Labs Laboratory Tests Test 09/08/19 12:06 09/09/19 00:39 09/09/19 06:04 09/09/19 08:40 Glucose (Fingerstick) 192 mg/dL (70-99) 149 mg/dL (70-99) 164 mg/dL (70-99) White Blood Count 8.8 x10^3/uL (4.0-11.0) Red Blood Count 2.77 x10^6/uL (3.50-5.40) Hemoglobin 7.9 g/dL (12.0-15.5) Hematocrit 24.4 % (36.0-47.0) Mean Corpuscular Volume 88 fL (79-100) Mean Corpuscular Hemoglobin 29 pg (25-35) Mean Corpuscular Hemoglobin Concent 33 g/dL (31-37) Red Cell Distribution Width 18.7 % (11.5-14.5) Platelet Count 348 x10^3/uL (140-400) Sodium Level 140 mmol/L (136-145) Potassium Level 4.3 mmol/L (3.5-5.1) Chloride Level 99 mmol/L (98-107) Carbon Dioxide Level 36 mmol/L (21-32) Anion Gap 5 (6-14) Blood Urea Nitrogen 22 mg/dL (7-20) Creatinine 0.6 mg/dL (0.6-1.0) Estimated GFR (Cockcroft-Gault) 106.3 Glucose Level 126 mg/dL (70-99) Calcium Level 9.3 mg/dL (8.5-10.1) Phosphorus Level 3.7 mg/dL (2.6-4.7) Magnesium Level 2.1 mg/dL (1.8-2.4) Test 09/09/19 11:25 09/09/19 18:00 09/10/19 00:29 09/10/19 06:06 Glucose (Fingerstick) 157 mg/dL (70-99) 155 mg/dL (70-99) 144 mg/dL (70-99) 163 mg/dL (70-99) Laboratory Tests Test 09/09/19 11:25 09/09/19 18:00 09/10/19 00:29 09/10/19 06:06 Glucose (Fingerstick) 157 mg/dL (70-99) 155 mg/dL (70-99) 144 mg/dL (70-99) 163 mg/dL (70-99) Medications Active Scripts Medications Dose Route/Sig Max Daily Dose Days Date Category Bisoprolol Fumarate 5 Mg Tablet 10 Mg PO DAILY 07/04/19 Reported Comments CXR reviewed. Impression . IMPRESSION: 1. Acute hypoxemic respiratory failure secondary to ARDS status post trach, 2. Gallstone pancreatitis 3. Severe metabolic acidosis.stable 4. Acute kidney injury-stable, Off HD-- continue to improve 5. Acute gallstone pancreatitis. 6. Hypoalbuminemia. 7. Moderate persistent effusions, s/p left thora 08/29 8. Fever- Per ID, per surgery--resolved 9. Chronic anemia 10. Covid 19 testing negative 11. Moderate to large ascites-S/P paracentisis 12.S/P paracentisis with 4 liters removed on 08/03/19 13. S/P IR drain placement on 08/26/2019 Plan . Continue current support Continue the same Lasix 40 mg twice daily Patient placed on assist control last evening for respiratory distress s/p thoracentesis, 08/29, 3 litres removed cap trach as tolerated Follow surgery recs-- S/P 3 drain placed in IR on 08/26/2019 Follow ID recs for ABX Follow nephrology recs Continue TPN DVT/GI PPX: heparin SQ/ protonix D/W RN and RT, pt CODE:TEN BOLIVAR MD September 10, 2019 11:24
--- NOTE | 2019-09-10 12:07 | PDOC ---
Provider Note Provider Note SURG pt out of room for a shower oldest daughter at the bedside continue supportive care Hemodynamically unstable?: No Is patient in severe pain?: No Is NPO status required?: Yes MARV WYNNE MD September 10, 2019 12:07
[2019-09-10] MEDS: IV NORMAL SALINE 1000ML BAG 1,000 ML IV SCH (13:37)
--- NOTE | 2019-09-10 13:46 | PDOC ---
PROGRESS NOTES Chief Complaint Chief Complaint Acute hypoxic Respiratory failure requiring mechanical ventilation (now extubated for several days but still with tracheostomy) Tracheostomy bilateral pleural effusions/pulm edema Sepsis Severe Acute gallstone pancreatitis (not a surgical candidate at this time) with necrosis Acute kidney failure now requiring dialysis Salpingitis Gallstones (Calculus of gallbladder with acute cholecystitis without obstruction) HTN Leukocytosis Hypoxia Uterine fibroid Intractable pain Intractable nausea Covid 19 negative. Acute on chronic anemia EEG: No seizure activityFever - better currently - intermittent could be from underlying pancreatitis blood cults 08/21 - neg so far ? Ileus with vomiting Abd distention - U/S and CT reviewed s/p 0.4 L of opaque, debris-containing ascites was removed 08/23 Acute pancreatitis with persistent necrosis - 08/14 status post KAYLIN drain placement + C paropsilosis. s/p additional drains 08/25 Anemia - S/p PRBCs Cholelithiasis with thickening of the gallbladder wall. Leucocytosis improving JUANA, hyperkalemia, Metabolic acidosis off dialysis Acute hypoxic resp failure ,bilateral pleural effusion and atelectasis hypocalcemia Prediabetes HTN s/p trach ESRD on HD Hyperglycemia History of Present Illness History of Present Illness 09/09, anxiety is up today, she dislikes the valve still, shower and outside today . 09/08 she doesnt want to wear her passy-fantasma valve, discussed str and plan with her. speech following, needs swallow study, but needs to wear her valve longer, cont current able to walk some, walker 09/07 stronger, better, we discussed better oral care she would like to try swallow study, wants to try to eat, speech is following 09/07/2019 She remains in the ICU sitting up and working with OT, getting better if limit pain meds, may do better off the vent, Nurses trying to suction her, that is also improved, Chart reviewed 09/06/2019 Patient seen and examined in the ICU She had an episode yesterday of tachycardia and severe agitation we gave her some Ativan After that she seemed to have stroke symptoms but now that the Ativan has wore off her stroke symptoms have resolved She is on IV meropenem and daptomycin and micafungin Chart reviewed Discussed with RN Patient is still critically ill BRIEF OPERATIVE NOTE Pre-Op Diagnosis Pancreatitis with pseudocysts, suspected infection Post-Op Diagnosis same Procedure Performed CT abdominal Drains x 3 Surgeon Tesfaye Anesthesia Type: Conscious Sedation Findings 3 abdominal drains, 14F, with turbid pancreatic fluid and necrotic debris in each. Complications No immediate 08/26: Patient today somewhat restless and having bilious secretions from ET tube, imaging studies ordered, discussed with residential solar consultant. Pretty poor prognosis, hopefully is not a fistula, poor surgical candidate. 08/27: Imaging with no acute events, she seems more stable today compared to yesterday. Encouraged as much activity as possible patient at high risk for severe depression. Vitals Vitals Vital Signs Date Time Temp Pulse Resp B/P (MAP) Pulse Ox O2 Delivery O2 Flow Rate FiO2 09/10/19 12:00 Trach Collar 8.0 09/10/19 11:04 21 98 09/10/19 11:00 108 100/63 (75) 09/10/19 08:00 98.5 98.5 Physical Exam Physical Exam GENERAL: Propped up in bed, arouses to name HEENT: oral cavity dry, NGT NECK: Trach shield LUNGS: Clear anteriorly, no accessory muscle use HEART: S1, S2, regular ABDOMEN: mod distention, hypoactive BS, tender, + drains x 3 : Lind (08/01) EXTREMITIES: Generalized edema, improving, no cyanosis, SCDs bilaterally SKIN: Warm and dry. No generalized rash. 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 RUE-PICC (08/17) clean General: Alert, Cooperative, No acute distress Heart: Regular rate, Normal S1, Normal S2, No murmurs, Gallops Lungs: Wheezing, Other (decrease bs) Abdomen: Soft, No tenderness Extremities: No clubbing, No cyanosis, No edema, Normal pulses, No tenderness/swelling Skin: Other (warm, dry) Labs LABS Laboratory Tests Test 09/09/19 18:00 09/10/19 00:29 09/10/19 06:06 Glucose (Fingerstick) 155 mg/dL (70-99) 144 mg/dL (70-99) 163 mg/dL (70-99) Assessment and Plan Assessmemt and Plan Problems Medical Problems: (1) Acute pancreatitis Status: Acute (2) Cholelithiasis Status: Acute Comment Review of Relevant I have reviewed the following items kolby (where applicable) has been applied. Labs Laboratory Tests Test 09/09/19 00:39 09/09/19 06:04 09/09/19 08:40 09/09/19 11:25 Glucose (Fingerstick) 149 mg/dL (70-99) 164 mg/dL (70-99) 157 mg/dL (70-99) White Blood Count 8.8 x10^3/uL (4.0-11.0) Red Blood Count 2.77 x10^6/uL (3.50-5.40) Hemoglobin 7.9 g/dL (12.0-15.5) Hematocrit 24.4 % (36.0-47.0) Mean Corpuscular Volume 88 fL (79-100) Mean Corpuscular Hemoglobin 29 pg (25-35) Mean Corpuscular Hemoglobin Concent 33 g/dL (31-37) Red Cell Distribution Width 18.7 % (11.5-14.5) Platelet Count 348 x10^3/uL (140-400) Sodium Level 140 mmol/L (136-145) Potassium Level 4.3 mmol/L (3.5-5.1) Chloride Level 99 mmol/L (98-107) Carbon Dioxide Level 36 mmol/L (21-32) Anion Gap 5 (6-14) Blood Urea Nitrogen 22 mg/dL (7-20) Creatinine 0.6 mg/dL (0.6-1.0) Estimated GFR (Cockcroft-Gault) 106.3 Glucose Level 126 mg/dL (70-99) Calcium Level 9.3 mg/dL (8.5-10.1) Phosphorus Level 3.7 mg/dL (2.6-4.7) Magnesium Level 2.1 mg/dL (1.8-2.4) Test 09/09/19 18:00 09/10/19 00:29 09/10/19 06:06 Glucose (Fingerstick) 155 mg/dL (70-99) 144 mg/dL (70-99) 163 mg/dL (70-99) Laboratory Tests Test 09/09/19 18:00 09/10/19 00:29 09/10/19 06:06 Glucose (Fingerstick) 155 mg/dL (70-99) 144 mg/dL (70-99) 163 mg/dL (70-99) Microbiology 09/04/19 Blood Culture - Final, Complete NO GROWTH AFTER 5 DAYS 08/24/19 Fungal Culture - Final, Complete 08/24/19 Fungal Culture Result 1 - Final, Complete 08/18/19 Aerobic Culture - Final, Complete 08/18/19 Aerobic Culture Result 1 (ALEXANDRA) - Final, Complete 08/18/19 Gram Stain - Final, Complete 08/18/19 Gram Stain Result 1 (ALEXANDRA) - Final, Complete 08/18/19 Gram Stain Result 2 (ALEXANDRA) - Final, Complete 07/31/19 Urine Culture - Final, Complete 07/31/19 Urine Culture Result 1 (ALEXANDRA) - Final, Complete Medications Current Medications Sodium Chloride 1,000 ml @ 1,000 mls/hr Q1H IV Last administered on 07/04/19at 03:00; Start 07/04/19 at 03:00; Stop 07/04/19 at 03:59; Status DC Ondansetron HCl (Zofran) 4 mg 1X ONCE IVP Last administered on 07/04/19at 03:27; Start 07/04/19 at 03:00; Stop 07/04/19 at 03:01; Status DC Morphine Sulfate (Morphine Sulfate) 4 mg 1X ONCE IV ; Start 07/04/19 at 03:00; Stop 07/04/19 at 03:01; Status Cancel Ketorolac Tromethamine (Toradol 30mg Vial) 30 mg 1X ONCE IV Last administered on 07/04/19at 02:54; Start 07/04/19 at 03:00; Stop 07/04/19 at 03:01; Status DC Fentanyl Citrate (Fentanyl 2ml Vial) 25 mcg 1X ONCE IVP Last administered on 07/04/19at 03:23; Start 07/04/19 at 03:30; Stop 07/04/19 at 03:31; Status DC Fentanyl Citrate (Fentanyl 2ml Vial) 100 mcg STK-MED ONCE .ROUTE ; Start 07/04/19 at 03:18; Stop 07/04/19 at 03:18; Status DC Iohexol (Omnipaque 350 Mg/ml) 90 ml 1X ONCE IV Last administered on 07/04/19at 03:25; Start 07/04/19 at 03:30; Stop 07/04/19 at 03:31; Status DC Info (CONTRAST GIVEN -- Rx MONITORING) 1 each PRN DAILY PRN MC SEE COMMENTS; Start 07/04/19 at 03:30; Stop 07/06/19 at 03:29; Status DC Hydromorphone HCl (Dilaudid) 0.5 mg 1X ONCE IV Last administered on 07/04/19at 03:55; Start 07/04/19 at 04:30; Stop 07/04/19 at 04:32; Status DC Ondansetron HCl (Zofran) 4 mg PRN Q8HRS PRN IV NAUSEA/VOMITING 1ST CHOICE; S tart 07/04/19 at 05:00; Stop 07/04/19 at 09:27; Status DC Morphine Sulfate (Morphine Sulfate) 2 mg PRN Q2HR PRN IV SEVERE PAIN 7-10 Last administered on 07/05/19at 12:26; Start 07/04/19 at 05:00; Stop 07/05/19 at 14:15; Status DC Sodium Chloride 1,000 ml @ 125 mls/hr Q8H IV Last administered on 07/04/19at 20:56; Start 07/04/19 at 05:00; Stop 07/05/19 at 04:59; Status DC Hydromorphone HCl (Dilaudid) 0.5 mg PRN Q3HRS PRN IV SEVERE PAIN 7-10 Last administered on 07/05/19at 10:06; Start 07/04/19 at 05:00; Stop 07/05/19 at 12:01; Status DC Piperacillin Sod/ Tazobactam Sod 4.5 gm/Sodium Chloride 100 ml @ 200 mls/hr 1X ONCE IV Last administered on 07/04/19at 05:44; Start 07/04/19 at 06:00; Stop 07/04/19 at 06:29; Status DC Ondansetron HCl (Zofran) 4 mg PRN Q4HRS PRN IV NAUSEA/VOMITING 1ST CHOICE Last administered on 09/10/19at 04:21; Start 07/04/19 at 09:30 Insulin Human Lispro (HumaLOG) 0-9 UNITS Q6HRS SQ Last administered on 09/10/19at 06:08; Start 07/04/19 at 09:30 Dextrose (Dextrose 50%-Water Syringe) 12.5 gm PRN Q15MIN PRN IV SEE COMMENTS; Start 07/04/19 at 09:30 Pantoprazole Sodium (PROTONIX VIAL for IV PUSH) 40 mg DAILYAC IVP Last administered on 09/10/19at 10:33; Start 07/04/19 at 11:30 Prochlorperazine Edisylate (Compazine) 10 mg PRN Q6HRS PRN IV NAUSEA/VOMITING, 2nd CHOICE Last administered on 09/01/19at 06:11; Start 07/04/19 at 17:45 Atenolol (Tenormin) 100 mg DAILY PO ; Start 07/05/19 at 09:00; Stop 07/04/19 at 20:08; Status DC Metoprolol Tartrate (Lopressor Vial) 2.5 mg Q6HRS IVP Last administered on 07/05/19at 05:51; Start 07/04/19 at 20:15; Stop 07/05/19 at 10:02; Status DC Metoprolol Tartrate (Lopressor Vial) 5 mg Q6HRS IVP Last administered on 07/14/19at 00:12; Start 07/05/19 at 10:15; Stop 07/16/19 at 08:48; Status DC Hydromorphone HCl (Dilaudid) 1 mg PRN Q3HRS PRN IV SEVERE PAIN 7-10 Last administered on 07/11/19at 05:13; Start 07/05/19 at 12:00; Stop 07/19/19 at 0 0:25; Status DC Lidocaine HCl (Buffered Lidocaine 1%) 3 ml STK-MED ONCE .ROUTE ; Start 07/05/19 at 12:55; Stop 07/05/19 at 12:56; Status DC Albumin Human 500 ml @ 125 mls/hr 1X ONCE IV Last administered on 07/05/19at 14:33; Start 07/05/19 at 14:30; Stop 07/05/19 at 18:32; Status DC Norepinephrine Bitartrate 8 mg/ Dextrose 258 ml @ 17.299 mls/ hr CONT PRN IV PER PROTOCOL Last administered on 08/02/19at 12:48; Start 07/05/19 at 15:30; Stop 08/05/19 at 09:19; Status DC Sodium Chloride 1,000 ml @ 125 mls/hr Q8H IV Last administered on 07/05/19at 21:04; Start 07/05/19 at 16:00; Stop 07/06/19 at 02:42; Status DC Albumin Human 500 ml @ 125 mls/hr PRN BID PRN IV After every 2L NSS & BP < 90mm Last administered on 07/20/19at 14:21; Start 07/05/19 at 16:00 Iohexol (Omnipaque 300 Mg/ml) 60 ml 1X ONCE IV Last administered on 07/05/19at 17:20; Start 07/05/19 at 17:00; Stop 07/05/19 at 17:01; Status DC Info (CONTRAST GIVEN -- Rx MONITORING) 1 each PRN DAILY PRN MC SEE COMMENTS; Start 07/05/19 at 17:00; Stop 07/07/19 at 16:59; Status DC Meropenem 1 gm/ Sodium Chloride 100 ml @ 200 mls/hr Q8HRS IV Last administered on 07/06/19at 05:45; Start 07/05/19 at 20:00; Stop 07/06/19 at 08:48; Status DC Furosemide (Lasix) 40 mg 1X ONCE IVP Last administered on 07/05/19at 22:12; Start 07/05/19 at 22:30; Stop 07/05/19 at 22:31; Status DC Calcium Chloride 1000 mg/Sodium Chloride 110 ml @ 220 mls/hr 1X ONCE IV Last administered on 07/05/19at 22:11; Start 07/05/19 at 22:30; Stop 07/05/19 at 22:59; Status DC Albuterol Sulfate (Ventolin Neb Soln) 2.5 mg 1X ONCE NEB Last administered on 07/06/19at 00:56; Start 07/05/19 at 22:30; Stop 07/05/19 at 22:31; Status DC Insulin Human Regular (HumuLIN R VIAL) 5 unit 1X ONCE IV Last administered on 07/05/19at 22:14; Start 07/05/19 at 22:30; Stop 07/05/19 at 22:31; Status DC Magnesium Sulfate 50 ml @ 25 mls/hr 1X ONCE IV Last administered on 07/06/19at 02:57; Start 07/06/19 at 03:00; Stop 07/06/19 at 04:59; Status DC Calcium Gluconate 1000 mg/Sodium Chloride 110 ml @ 220 mls/hr 1X ONCE IV Last administered on 07/06/19at 02:46; Start 07/06/19 at 03:00; Stop 07/06/19 at 03:29; Status DC Sodium Chloride 1,000 ml @ 200 mls/hr Q5H IV Last administered on 07/06/19at 02:46; Start 07/06/19 at 03:00; Stop 07/06/19 at 10:21; Status DC Calcium Gluconate 1000 mg/Sodium Chloride 110 ml @ 220 mls/hr 1X ONCE IV Last administered on 07/06/19at 03:21; Start 07/06/19 at 03:30; Stop 07/06/19 at 03:59; Status DC Sodium Bicarbonate 50 meq/Sodium Chloride 1,050 ml @ 75 mls/hr Q14H IV Last administered on 07/10/19at 21:10; Start 07/06/19 at 07:30; Stop 07/11/19 at 10:28; Status DC Calcium Gluconate 2000 mg/Sodium Chloride 120 ml @ 220 mls/hr 1X ONCE IV Last administered on 07/06/19at 09:05; Start 07/06/19 at 07:30; Stop 07/06/19 at 08:02; Status DC Lidocaine HCl (Xylocaine-Mpf 1% 2ml Vial) 2 ml STK-MED ONCE .ROUTE ; Start 07/06/19 at 08:47; Stop 07/06/19 at 08:47; Status DC Meropenem 500 mg/ Sodium Chloride 50 ml @ 100 mls/hr Q12HR IV Last administered on 07/11/19at 21:01; Start 07/06/19 at 18:00; Stop 07/12/19 at 07:58; Status DC Lidocaine HCl (Buffered Lidocaine 1%) 3 ml STK-MED ONCE .ROUTE ; Start 07/06/19 at 09:46; Stop 07/06/19 at 09:46; Status DC Lidocaine HCl (Buffered Lidocaine 1%) 6 ml 1X ONCE INJ Last administered on 07/06/19at 10:26; Start 07/06/19 at 10:15; Stop 07/06/19 at 10:16; Status DC Info (Tpn Per Pharmacy) 1 each PRN DAILY PRN MC SEE COMMENTS Last administered on 09/09/19at 12:07; Start 07/06/19 at 12:00 Sodium Chloride 1,000 ml @ 1,000 mls/hr Q1H PRN IV hypotension; Start 07/06/19 at 12:07; Stop 07/06/19 at 18:06; Status DC Diphenhydramine HCl (Benadryl) 25 mg 1X PRN PRN IV ITCHING; Start 07/06/19 at 12:15; Stop 07/07/19 at 12:14; Status DC Diphenhydramine HCl (Benadryl) 25 mg 1X PRN PRN IV ITCHING; Start 07/06/19 at 12:15; Stop 07/07/19 at 12:14; Status DC Sodium Chloride 1,000 ml @ 400 mls/hr Q2H30M PRN IV PATENCY; Start 07/06/19 at 12:07; Stop 07/07/19 at 00:06; Status DC Info (PHARMACY MONITORING -- do not chart) 1 each PRN DAILY PRN MC SEE COMMENTS; Start 07/06/19 at 12:15; Stop 07/08/19 at 08:13; Status DC Sodium Chloride 90 meq/Calcium Gluconate 10 meq/ Multivitamins 10 ml/Chromium/ Copper/Manganese/ Seleni/Zn 1 ml/ Total Parenteral Nutrition/Amino Acids/Dextrose/ Fat Emulsion Intravenous 55.005 ml @ 2.292 mls/hr TPN CONT IV ; Start 07/06/19 at 22:00; Stop 07/06/19 at 12:33; Status DC Info (Tpn Per Pharmacy) 1 each PRN DAILY PRN MC SEE COMMENTS; Start 07/06/19 at 12:30; Status UNV Sodium Chloride 90 meq/Calcium Gluconate 10 meq/ Multivitamins 10 ml/Chromium/ Copper/Manganese/ Seleni/Zn 0.5 ml/ Total Parenteral Nutrition/Amino Acids/Dextrose/ Fat Emulsion Intravenous 1,512 ml @ 63 mls/hr TPN CONT IV Last administered on 07/06/19at 22:06; Start 07/06/19 at 22:00; Stop 07/07/19 at 21:59; Status DC Calcium Carbonate/ Glycine (Tums) 500 mg PRN AFTMEALHC PRN PO INDIGESTION; Start 07/06/19 at 17:45; Stop 08/31/19 at 10:25; Status DC Calcium Gluconate (Calcium Gluconate) 2,000 mg 1X ONCE IVP Last administered on 07/07/19at 02:19; Start 07/07/19 at 02:15; Stop 07/07/19 at 02:16; Status DC Calcium Chloride 3000 mg/Sodium Chloride 1,030 ml @ 50 mls/hr [id number] IV Last administered on 07/09/19at 02:17; Start 07/07/19 at 08:00; Stop 07/09/19 at 15:23; Status DC Lorazepam (Ativan Inj) 1 mg PRN Q4HRS PRN IVP ANXIETY / AGITATION, 2nd choic Last administered on 08/05/19at 03:51; Start 07/07/19 at 09:00; Stop 08/05/19 at 09:19; Status DC Sodium Chloride 1,000 ml @ 1,000 mls/hr Q1H PRN IV hypotension; Start 07/07/19 at 08:56; Stop 07/07/19 at 14:55; Status DC Albumin Human 200 ml @ 200 mls/hr 1X PRN PRN IV Hypotension; Start 07/07/19 at 09:00; Stop 07/07/19 at 14:59; Status DC Diphenhydramine HCl (Benadryl) 25 mg 1X PRN PRN IV ITCHING; Start 07/07/19 at 09:00; Stop 07/08/19 at 08:59; Status DC Diphenhydramine HCl (Benadryl) 25 mg 1X PRN PRN IV ITCHING; Start 07/07/19 at 09:00; Stop 07/08/19 at 08:59; Status DC Sodium Chloride 1,000 ml @ 400 mls/hr Q2H30M PRN IV PATENCY; Start 07/07/19 at 08:56; Stop 07/07/19 at 20:55; Status DC Info (PHARMACY MONITORING -- do not chart) 1 each PRN DAILY PRN MC SEE COMMENTS; Start 07/07/19 at 09:00; Status UNV Info (PHARMACY MONITORING -- do not chart) 1 each PRN DAILY PRN MC SEE COMMENTS; Start 07/07/19 at 09:00; Stop 07/08/19 at 08:13; Status DC Digoxin (Lanoxin) 500 mcg 1X ONCE IV Last administered on 07/07/19at 10:04; Start 07/07/19 at 10:00; Stop 07/07/19 at 10:01; Status DC Digoxin (Lanoxin) 125 mcg 1X ONCE IV Last administered on 07/07/19at 17:10; Start 07/07/19 at 18:00; Stop 07/07/19 at 18:01; Status DC Magnesium Sulfate 100 ml @ 25 mls/hr 1X ONCE IV Last administered on 07/07/19at 12:48; Start 07/07/19 at 13:00; Stop 07/07/19 at 16:59; Status DC Sodium Chloride 90 meq/Magnesium Sulfate 10 meq/ Calcium Gluconate 20 meq/ Multivitamins 10 ml/Chromium/ Copper/Manganese/ Seleni/Zn 0.5 ml/ Total Parenteral Nutrition/Amino Acids/Dextrose/ Fat Emulsion Intravenous 1,512 ml @ 63 mls/hr TPN CONT IV Last administered on 07/07/19at 22:25; Start 07/07/19 at 22:00; Stop 07/08/19 at 21:59; Status DC Sodium Chloride 1,000 ml @ 1,000 mls/hr Q1H PRN IV hypotension; Start 07/08/19 at 08:05; Stop 07/08/19 at 14:04; Status DC Albumin Human 200 ml @ 200 mls/hr 1X ONCE IV Last administered on 07/08/19at 08:57; Start 07/08/19 at 08:15; Stop 07/08/19 at 09:14; Status DC Diphenhydramine HCl (Benadryl) 25 mg 1X PRN PRN IV ITCHING; Start 07/08/19 at 08:15; Stop 07/09/19 at 08:14; Status DC Diphenhydramine HCl (Benadryl) 25 mg 1X PRN PRN IV ITCHING; Start 07/08/19 at 08:15; Stop 07/09/19 at 08:14; Status DC Sodium Chloride 1,000 ml @ 400 mls/hr Q2H30M PRN IV PATENCY; Start 07/08/19 at 08:05; Stop 07/08/19 at 20:04; Status DC Info (PHARMACY MONITORING -- do not chart) 1 each PRN DAILY PRN MC SEE COMMENTS; Start 07/08/19 at 08:15; Stop 07/12/19 at 07:57; Status DC Sodium Chloride 90 meq/Potassium Chloride 15 meq/ Potassium Phosphate 10 mmol/ Magnesium Sulfate 10 meq/Calcium Gluconate 20 meq/ Multivitamins 10 ml/Chromium/ Copper/Manganese/ Seleni/Zn 0.5 ml/ Total Parenteral Nutrition/Amino Acids/Dextrose/ Fat Emulsion Intravenous 1,512 ml @ 63 mls/hr TPN CONT IV Last administered on 07/08/19at 21:01; Start 07/08/19 at 22:00; Stop 07/09/19 at 21:59; Status DC Potassium Chloride/Water 100 ml @ 100 mls/hr 1X ONCE IV Last administered on 07/08/19at 14:09; Start 07/08/19 at 14:00; Stop 07/08/19 at 14:59; Status DC Benzocaine (Hurricaine One) 1 spray 1X ONCE MM Last administered on 07/08/19at 16:38; Start 07/08/19 at 14:30; Stop 07/08/19 at 14:31; Status DC Lidocaine HCl (Glydo (Lidocaine) Jelly) 1 ramu 1X ONCE MM Last administered on 07/08/19at 16:38; Start 07/08/19 at 14:30; Stop 07/08/19 at 14:31; Status DC Linezolid/Dextrose 300 ml @ 300 mls/hr Q12HR IV Last administered on 07/14/19at 21:04; Start 07/08/19 at 20:00; Stop 07/15/19 at 07:50; Status DC Acetaminophen (Tylenol) 650 mg PRN Q6HRS PRN PO MILD PAIN / TEMP; Start 07/09/19 at 03:30; Stop 07/09/19 at 03:36; Status DC Acetaminophen (Tylenol) 650 mg PRN Q6HRS PRN PEG MILD PAIN / TEMP Last administered on 08/04/19at 19:56; Start 07/09/19 at 03:36; Stop 08/31/19 at 10:25 ; Status DC Sodium Chloride 1,000 ml @ 1,000 mls/hr Q1H PRN IV hypotension; Start 07/09/19 at 07:50; Stop 07/09/19 at 13:49; Status DC Albumin Human 200 ml @ 200 mls/hr 1X PRN PRN IV Hypotension; Start 07/09/19 at 08:00; Stop 07/09/19 at 13:59; Status DC Sodium Chloride (Normal Saline Flush) 10 ml 1X PRN PRN IV AP catheter pack; Start 07/09/19 at 08:00; Stop 07/10/19 at 07:59; Status DC Sodium Chloride (Normal Saline Flush) 10 ml 1X PRN PRN IV REGULATOR INSPECTOR catheter pack; Start 07/09/19 at 08:00; Stop 07/10/19 at 07:59; Status DC Sodium Chloride 1,000 ml @ 400 mls/hr Q2H30M PRN IV PATENCY; Start 07/09/19 at 07:50; Stop 07/09/19 at 19:49; Status DC Info (PHARMACY MONITORING -- do not chart) 1 each PRN DAILY PRN MC SEE COMMENTS; Start 07/09/19 at 08:00; Status UNV Info (PHARMACY MONITORING -- do not chart) 1 each PRN DAILY PRN MC SEE COMMENTS; Start 07/09/19 at 08:00; Stop 07/11/19 at 08:25; Status DC Sodium Chloride 90 meq/Potassium Chloride 15 meq/ Potassium Phosphate 10 mmol/ Magnesium Sulfate 10 meq/Calcium Gluconate 20 meq/ Multivitamins 10 ml/Chromium/ Copper/Manganese/ Seleni/Zn 0.5 ml/ Total Parenteral Nutrition/Amino Acids /Dextrose/ Fat Emulsion Intravenous 1,512 ml @ 63 mls/hr TPN CONT IV Last administered on 07/09/19at 20:57; Start 07/09/19 at 22:00; Stop 07/10/19 at 21:59; Status DC Sodium Chloride 90 meq/Potassium Chloride 15 meq/ Potassium Phosphate 15 mmol/ Magnesium Sulfate 10 meq/Calcium Gluconate 20 meq/ Multivitamins 10 ml/Chromium/ Copper/Manganese/ Seleni/Zn 0.5 ml/ Total Parenteral Nutrition/Amino Acids/Dextrose/ Fat Emulsion Intravenous 1,512 ml @ 63 mls/hr TPN CONT IV ; Start 07/10/19 at 22:00; Stop 07/10/19 at 14:16; Status DC Sodium Chloride 90 meq/Potassium Chloride 15 meq/ Potassium Phosphate 15 mmol/ Magnesium Sulfate 10 meq/Calcium Gluconate 20 meq/ Multivitamins 10 ml/Chromium/ Copper/Manganese/ Seleni/Zn 0.5 ml/ Total Parenteral Nutrition/Amino Ac ids/Dextrose/ Fat Emulsion Intravenous 1,200 ml @ 50 mls/hr TPN CONT IV ; Start 07/10/19 at 22:00; Stop 07/10/19 at 14:17; Status DC Sodium Chloride 90 meq/Potassium Chloride 15 meq/ Potassium Phosphate 10 mmol/ Magnesium Sulfate 10 meq/Calcium Gluconate 20 meq/ Multivitamins 10 ml/Chromium/ Copper/Manganese/ Seleni/Zn 0.5 ml/ Total Parenteral Nutrition/Amino Acids/Dextrose/ Fat Emulsion Intravenous 1,200 ml @ 50 mls/hr TPN CONT IV Last administered on 07/10/19at 23:29; Start 07/10/19 at 22:00; Stop 07/11/19 at 21:59; Status DC Sodium Chloride 1,000 ml @ 1,000 mls/hr Q1H PRN IV hypotension; Start 07/11/19 at 07:28; Stop 07/11/19 at 13:27; Status DC Albumin Human 200 ml @ 200 mls/hr 1X ONCE IV Last administered on 07/11/19at 08:51; Start 07/11/19 at 07:30; Stop 07/11/19 at 08:29; Status DC Diphenhydramine HCl (Benadryl) 25 mg 1X PRN PRN IV ITCHING; Start 07/11/19 at 07:30; Stop 07/12/19 at 07:29; Status DC Diphenhydramine HCl (Benadryl) 25 mg 1X PRN PRN IV ITCHING; Start 07/11/19 at 07:30; Stop 07/12/19 at 07:29; Status DC Sodium Chloride 1,000 ml @ 400 mls/hr Q2H30M PRN IV PATENCY; Start 07/11/19 at 07:28; Stop 07/11/19 at 19:27; Status DC Info (PHARMACY MONITORING -- do not chart) 1 each PRN DAILY PRN MC SEE COMMENTS; Start 07/11/19 at 07:30; Stop 07/22/19 at 13:01; Status DC Metronidazole 100 ml @ 100 mls/hr Q6HRS IV Last administered on 07/27/19at 06:26; Start 07/11/19 at 08:30; Stop 07/27/19 at 09:58; Status DC Micafungin Sodium 100 mg/Dextrose 100 ml @ 100 mls/hr Q24H IV Last administer ed on 08/18/19at 08:18; Start 07/11/19 at 09:00; Stop 08/18/19 at 20:58; Status DC Propofol 0 ml @ As Directed STK-MED ONCE IV ; Start 07/11/19 at 07:53; Stop 07/11/19 at 07:53; Status DC Etomidate (Amidate) 20 mg STK-MED ONCE IV ; Start 07/11/19 at 07:53; Stop 07/11/19 at 07:54; Status DC Midazolam HCl (Versed) 5 mg STK-MED ONCE .ROUTE ; Start 07/11/19 at 07:57; Stop 07/11/19 at 07:57; Status DC Fentanyl Citrate 30 ml @ 0 mls/hr CONT PRN IV SEE PROTOCOL Last administered on 08/05/19at 06:12; Start 07/11/19 at 08:15; Stop 08/05/19 at 09:19; Status DC Artificial Tears (Artificial Tears) 1 drop PRN Q1HR PRN OU DRY EYE, 1st choice; Start 07/11/19 at 08:15; Stop 08/17/19 at 05:31; Status DC Midazolam HCl 50 mg/Sodium Chloride 50 ml @ 0 mls/hr CONT PRN IV SEE PROTOCOL Last administered on 07/14/19at 22:39; Start 07/11/19 at 08:15; Stop 07/16/19 at 15:59; Status DC Etomidate (Amidate) 8 mg 1X ONCE IV Last administered on 07/11/19at 08:33; Start 07/11/19 at 08:30; Stop 07/11/19 at 08:31; Status DC Succinylcholine Chloride (Anectine) 120 mg 1X ONCE IV Last administered on 07/11/19at 08:34; Start 07/11/19 at 08:30; Stop 07/11/19 at 08:31; Status DC Midazolam HCl (Versed) 5 mg 1X ONCE IV ; Start 07/11/19 at 08:30; Stop 07/11/19 at 08:31; Status DC Potassium Chloride 15 meq/ Bicarbonate Dialysis Soln w/ out KCl 5,007.5 ml @ 1,000 mls/ hr Q5H1M IV Last administered on 07/12/19at 11:11; Start 07/11/19 at 12:00; Stop 07/12/19 at 11:15; Status DC Potassium Chloride 15 meq/ Bicarbonate Dialysis Soln w/ out KCl 5,007.5 ml @ 1,000 mls/ hr Q5H1M IV Last administered on 07/12/19at 11:12; Start 07/11/19 at 12:00; Stop 07/12/19 at 11:17; Status DC Potassium Chloride 15 meq/ Bicarbonate Dialysis Soln w/ out KCl 5,007.5 ml @ 1,000 mls/ hr Q5H1M IV Last administered on 07/12/19at 11:11; Start 07/11/19 at 12:00; Stop 07/12/19 at 11:19; Status DC Sodium Chloride 90 meq/Potassium Chloride 15 meq/ Potassium Phosphate 10 mmol/ Magnesium Sulfate 10 meq/Calcium Gluconate 20 meq/ Multivitamins 10 ml/Chromium/ Copper/Manganese/ Seleni/Zn 0.5 ml/ Total Parenteral Nutrition/Amino Acids/Dextrose/ Fat Emulsion Intravenous 1,400 ml @ 58.333 mls/ hr TPN CONT IV Last administered on 07/11/19at 21:42; Start 07/11/19 at 22:00; Stop 07/12/19 at 21:59; Status DC Heparin Sodium (Porcine) (Heparin Sodium) 5,000 unit Q8HRS SQ Last administered on 07/16/19at 05:55; Start 07/11/19 at 15:00; Stop 07/16/19 at 13:28; Status DC Meropenem 500 mg/ Sodium Chloride 50 ml @ 100 mls/hr Q6HRS IV Last administered on 07/13/19at 06:00; Start 07/12/19 at 09:00; Stop 07/13/19 at 07:29; Status DC Potassium Phosphate 20 mmol/ Sodium Chloride 106.6667 ml @ 51.667 m... 1X ONCE IV Last administered on 07/12/19at 11:22; Start 07/12/19 at 10:15; Stop 07/12/19 at 12:18; Status DC Acetaminophen (Tylenol Supp) 650 mg PRN Q6HRS PRN MA MILD PAIN / TEMP > 100.3'F Last administered on 08/23/19at 09:12; Start 07/12/19 at 10:30 Potassium Chloride/Water 100 ml @ 100 mls/hr Q1H IV Last administered on 07/12/19at 12:12; Start 07/12/19 at 11:00; Stop 07/12/19 at 12:59; Status DC Potassium Chloride 20 meq/ Bicarbonate Dialysis Soln w/ out KCl 5,010 ml @ 1,000 mls/hr Q5H1M IV Last administered on 07/13/19at 08:48; Start 07/12/19 at 12:00; Stop 07/13/19 at 13:03; Status DC Potassium Chloride 20 meq/ Bicarbonate Dialysis Soln w/ out KCl 5,010 ml @ 1,000 mls/hr Q5H1M IV Last administered on 07/17/19at 14:52; Start 07/12/19 at 11:30; Stop 07/17/19 at 19:59; Status DC Potassium Chloride 20 meq/ Bicarbonate Dialysis Soln w/ out KCl 5,010 ml @ 1,000 mls/hr Q5H1M IV Last administered on 07/17/19at 14:53; Start 07/12/19 at 11:30; Stop 07/17/19 at 19:59; Status DC Sodium Chloride 90 meq/Potassium Chloride 15 meq/ Potassium Phosphate 15 mmol/ Magnesium Sulfate 10 meq/Calcium Gluconate 15 meq/ Multivitamins 10 ml/Chromium/ Copper/Manganese/ Seleni/Zn 0.5 ml/ Total Parenteral Nutrition/Amino Acids/Dextrose/ Fat Emulsion Intravenous 1,400 ml @ 58.333 mls/ hr TPN CONT IV Last administered on 07/12/19at 22:17; Start 07/12/19 at 22:00; Stop 07/13/19 at 21:59; Status DC Cefepime HCl (Maxipime) 2 gm Q12HR IVP Last administered on 07/26/19at 20:56; Start 07/13/19 at 09:00; Stop 07/27/19 at 09:58; Status DC Daptomycin 500 mg/ Sodium Chloride 50 ml @ 100 mls/hr Q48H IV Last administered on 07/29/19at 09:57; Start 07/13/19 at 08:30; Stop 07/29/19 at 10:07; Status DC Lidocaine HCl (Buffered Lidocaine 1%) 3 ml 1X ONCE INJ Last administered on 07/13/19at 10:27; Start 07/13/19 at 10:30; Stop 07/13/19 at 10:31; Status DC Potassium Phosphate 20 mmol/ Sodium Chloride 106.6667 ml @ 51.667 m... 1X ONCE IV Last administered on 07/13/19at 12:51; Start 07/13/19 at 13:00; Stop 07/13/19 at 15:03; Status DC Sodium Chloride 90 meq/Potassium Chloride 15 meq/ Potassium Phosphate 18 mmol/ Magnesium Sulfate 8 meq/Calcium Gluconate 15 meq/ Multivitamins 10 ml/Chromium/ Copper/Manganese/ Seleni/Zn 0.5 ml/ Total Parenteral Nutrition/Amino Acids/Dextrose/ Fat Emulsion Intravenous 1,400 ml @ 58.333 mls/ hr TPN CONT IV Last administered on 07/13/19at 22:16; Start 07/13/19 at 22:00; Stop 07/14/19 at 21:59; Status DC Potassium Chloride 20 meq/ Bicarbonate Dialysis Soln w/ out KCl 5,010 ml @ 1,000 mls/hr Q5H1M IV Last administered on 07/17/19at 14:54; Start 07/13/19 at 16:00; Stop 07/17/19 at 19:59; Status DC Multi-Ingred Cream/Lotion/Oil/ Oint (Artificial Tears Eye Ointment) 1 ramu PRN Q1HR PRN OU DRY EYE, 2nd choice Last administered on 08/01/19at 08:19; Start 07/13/19 at 17:30 Sodium Chloride 90 meq/Potassium Chloride 15 meq/ Potassium Phosphate 18 mmol/ Magnesium Sulfate 8 meq/Calcium Gluconate 15 meq/ Multivitamins 10 ml/Chromium/ Copper/Manganese/ Seleni/Zn 0.5 ml/ Total Parenteral Nutrition/Amino Acids/Dextrose/ Fat Emulsion Intravenous 1,400 ml @ 58.333 mls/ hr TPN CONT IV Last administered on 07/14/19at 22:00; Start 07/14/19 at 22:00; Stop 07/15/19 at 21:59; Status DC Albumin Human 500 ml @ 125 mls/hr 1X ONCE IV ; Start 07/14/19 at 14:15; Stop 07/14/19 at 18:14; Status DC Sodium Chloride 90 meq/Potassium Chloride 15 meq/ Potassium Phosphate 18 mmol/ Magnesium Sulfate 8 meq/Calcium Gluconate 15 meq/ Multivitamins 10 ml/Chromium/ Copper/Manganese/ Seleni/Zn 0.5 ml/ Insulin Human Regular 10 unit/ Total Parenteral Nutrition/Amino Acids/Dextrose/ Fat Emulsion Intravenous 1,400 ml @ 58.333 mls/ hr TPN CONT IV Last administered on 07/15/19at 21:43; Start 06/19 11/06 at 22:00; Stop 07/16/19 at 21:59; Status DC Lidocaine HCl (Buffered Lidocaine 1%) 3 ml STK-MED ONCE .ROUTE ; Start 07/13/19 at 10:00; Stop 07/15/19 at 13:57; Status DC Midazolam HCl 100 mg/Sodium Chloride 100 ml @ 7 mls/hr CONT PRN IV SEE PROTOCOL Last administered on 07/27/19at 15:35; Start 07/16/19 at 16:00 Sodium Chloride 90 meq/Potassium Chloride 15 meq/ Potassium Phosphate 18 mmol/ Magnesium Sulfate 8 meq/Calcium Gluconate 15 meq/ Multivitamins 10 ml/Chromium/ Copper/Manganese/ Seleni/Zn 0.5 ml/ Insulin Human Regular 15 unit/ Total Parenteral Nutrition/Amino Acids/Dextrose/ Fat Emulsion Intravenous 1,400 ml @ 58.333 mls/ hr TPN CONT IV Last administered on 07/16/19at 20:34; Start 07/16/19 at 22:00; Stop 07/17/19 at 21:59; Status DC Info (Icu Electrolyte Protocol) 1 ea CONT PRN PRN MC PER PROTOCOL; Start 07/17/19 at 13:15 Sodium Chloride 90 meq/Potassium Chloride 15 meq/ Potassium Phosphate 18 mmol/ Magnesium Sulfate 8 meq/Calcium Gluconate 15 meq/ Multivitamins 10 ml/Chromium/ Copper/Manganese/ Seleni/Zn 0.5 ml/ Insulin Human Regular 15 unit/ Total Parenteral Nutrition/Amino Acids/Dextrose/ Fat Emulsion Intravenous 1,400 ml @ 58.333 mls/ hr TPN CONT IV Last administered on 07/17/19at 22:05; Start 07/17/19 at 22:00; Stop 07/18/19 at 21:59; Status DC Potassium Chloride 15 meq/ Bicarbonate Dialysis Soln w/ out KCl 5,007.5 ml @ 1,000 mls/ hr Q5H1M IV Last administered on 07/20/19at 18:14; Start 07/17/19 at 20:00; Stop 07/21/19 at 13:08; Status DC Potassium Chloride 15 meq/ Bicarbonate Dialysis Soln w/ out KCl 5,007.5 ml @ 1,000 mls/ hr Q5H1M IV Last administered on 07/20/19at 18:14; Start 07/17/19 at 20:00; Stop 07/21/19 at 13:08; Status DC Potassium Chloride 15 meq/ Bicarbonate Dialysis Soln w/ out KCl 5,007.5 ml @ 1,000 mls/ hr Q5H1M IV Last administered on 07/20/19at 18:14; Start 07/17/19 at 20:00; Stop 07/21/19 at 13:08; Status DC Iohexol (Omnipaque 240 Mg/ml) 30 ml 1X ONCE PO Last administered on 07/18/19at 11:30; Start 07/18/19 at 11:30; Stop 07/18/19 at 11:33; Status DC Info (CONTRAST GIVEN -- Rx MONITORING) 1 each PRN DAILY PRN MC SEE COMMENTS; Start 07/18/19 at 11:45; Stop 07/20/19 at 11:44; Status DC Sodium Chloride 90 meq/Potassium Chloride 15 meq/ Potassium Phosphate 18 mmol/ Magnesium Sulfate 8 meq/Calcium Gluconate 15 meq/ Multivitamins 10 ml/Chromium/ Copper/Manganese/ Seleni/Zn 0.5 ml/ Insulin Human Regular 15 unit/ Total Parenteral Nutrition/Amino Acids/Dextrose/ Fat Emulsion Intravenous 1,400 ml @ 58.333 mls/ hr TPN CONT IV Last administered on 07/18/19at 21:47; Start 07/18/19 at 22:00; Stop 07/19/19 at 21:59; Status DC Sodium Chloride 90 meq/Potassium Chloride 15 meq/ Potassium Phosphate 18 mmol/ Magnesium Sulfate 8 meq/Calcium Gluconate 15 meq/ Multivitamins 10 ml/Chromium/ Copper/Manganese/ Seleni/Zn 0.5 ml/ Insulin Human Regular 20 unit/ Total Parenteral Nutrition/Amino Acids/Dextrose/ Fat Emulsion Intravenous 1,400 ml @ 58.333 mls/ hr TPN CONT IV Last administered on 07/19/19at 21:36; Start 07/19/19 at 22:00; Stop 07/20/19 at 21:59; Status DC Alteplase, Recombinant (Cathflo For Central Catheter Clearance) 1 mg 1X ONCE INT CAT Last administered on 07/19/19at 20:03; Start 07/19/19 at 19:30; Stop at 19:46; Status DC Alteplase, Recombinant (Cathflo For Central Catheter Clearance) 1 mg 1X ONCE INT CAT Last administered on 07/19/19at 22:05; Start 07/19/19 at 22:00; Stop 07/19/19 at 22:01; Status DC Sodium Chloride 90 meq/Potassium Chloride 15 meq/ Potassium Phosphate 18 mmol/ Magnesium Sulfate 8 meq/Calcium Gluconate 15 meq/ Multivitamins 10 ml/Chromium/ Copper/Manganese/ Seleni/Zn 0.5 ml/ Insulin Human Regular 20 unit/ Total Parenteral Nutrition/Amino Acids/Dextrose/ Fat Emulsion Intravenous 1,400 ml @ 58.333 mls/ hr TPN CONT IV Last administered on 07/20/19at 21:30; Start 07/20/19 at 22:00; Stop 07/21/19 at 21:59; Status DC Dexmedetomidine HCl 400 mcg/ Sodium Chloride 100 ml @ 0 mls/hr CONT PRN IV ANXIETY / AGITATION Last administered on 09/10/19at 10:35; Start 07/21/19 at 08:15 Sodium Chloride 500 ml @ 500 mls/hr 1X PRN PRN IV ELEVATED BP, SEE COMMENTS; Start 07/21/19 at 08:15 Atropine Sulfate (ATROPINE 0.5mg SYRINGE) 0.5 mg PRN Q5MIN PRN IV SEE COMMENTS; Start 07/21/19 at 08:15 Furosemide (Lasix) 20 mg 1X ONCE IVP Last administered on 07/21/19at 08:19; Start 07/21/19 at 08:15; Stop 07/21/19 at 08:16; Status DC Lidocaine HCl (Buffered Lidocaine 1%) 3 ml STK-MED ONCE .ROUTE ; Start 07/21/19 at 08:39; Stop 07/21/19 at 08:39; Status DC Lidocaine HCl (Buffered Lidocaine 1%) 6 ml 1X ONCE INJ Last administered on 07/21/19at 09:05; Start 07/21/19 at 09:00; Stop 07/21/19 at 09:06; Status DC Sodium Chloride 90 meq/Potassium Chloride 15 meq/ Potassium Phosphate 18 mmol/ Magnesium Sulfate 8 meq/Calcium Gluconate 15 meq/ Multivitamins 10 ml/Chromium/ Copper/Manganese/ Seleni/Zn 0.5 ml/ Insulin Human Regular 20 unit/ Total Parenteral Nutrition/Amino Acids/Dextrose/ Fat Emulsion Intravenous 1,400 ml @ 58.333 mls/ hr TPN CONT IV Last administered on 07/21/19at 22:45; Start 07/21/19 at 22:00; Stop 07/22/19 at 21:59; Status DC Sodium Chloride 1,000 ml @ 1,000 mls/hr Q1H PRN IV hypotension; Start 07/22/19 at 07:30; Stop 07/22/19 at 13:29; Status DC Albumin Human 200 ml @ 200 mls/hr 1X PRN PRN IV Hypotension Last administered on 07/22/19at 09:36; Start 07/22/19 at 07:30; Stop 07/22/19 at 13:29; Status DC Sodium Chloride (Normal Saline Flush) 10 ml 1X PRN PRN IV AP catheter pack; Start 07/22/19 at 07:30; Stop 07/22/19 at 21:29; Status DC Sodium Chloride (Normal Saline Flush) 10 ml 1X PRN PRN IV REGULATOR INSPECTOR catheter pack; Start 07/22/19 at 07:30; Stop 07/23/19 at 07:29; Status DC Sodium Chloride 1,000 ml @ 400 mls/hr Q2H30M PRN IV PATENCY; Start 07/22/19 at 07:30; Stop 07/22/19 at 19:29; Status DC Info (PHARMACY MONITORING -- do not chart) 1 each PRN DAILY PRN MC SEE COMMENTS; Start 07/22/19 at 07:30; Stop 07/22/19 at 13:02; Status DC Info (PHARMACY MONITORING -- do not chart) 1 each PRN DAILY PRN MC SEE COMMENTS; Start 07/22/19 at 07:30; Stop 07/24/19 at 12:45; Status DC Sodium Chloride 90 meq/Potassium Chloride 15 meq/ Potassium Phosphate 10 mmol/ Magnesium Sulfate 8 meq/Calcium Gluconate 15 meq/ Multivitamins 10 ml/Chromium/ Copper/Manganese/ Seleni/Zn 0.5 ml/ Insulin Human Regular 25 unit/ Total Parenteral Nutrition/Amino Acids/Dextrose/ Fat Emulsion Intravenous 1,400 ml @ 58.333 mls/ hr TPN CONT IV Last administered on 07/22/19at 22:19; Start 07/22/19 at 22:00; Stop 07/23/19 at 21:59; Status DC Heparin Sodium (Porcine) (Heparin Sodium) 5,000 unit Q12HR SQ Last administered on 08/14/19at 08:59; Start 07/22/19 at 21:00; Stop 08/14/19 at 10:05; Status DC Ondansetron HCl (Zofran) 4 mg PRN Q6HRS PRN IV NAUSEA/VOMITING; Start 07/25/19 at 07:00; Stop 07/26/19 at 06:59; Status DC Fentanyl Citrate (Fentanyl 2ml Vial) 25 mcg PRN Q5MIN PRN IV MILD PAIN 1-3; Start 07/25/19 at 07:00; Stop 07/26/19 at 06:59; Status DC Fentanyl Citrate (Fentanyl 2ml Vial) 50 mcg PRN Q5MIN PRN IV MODERATE TO SEVERE PAIN; Start 07/25/19 at 07:00; Stop 07/26/19 at 06:59; Status DC Ringer's Solution 1,000 ml @ 30 mls/hr Q24H IV ; Start 07/25/19 at 07:00; Stop 07/25/19 at 18:59; Status DC Lidocaine HCl (Xylocaine-Mpf 1% 2ml Vial) 2 ml PRN 1X PRN ID PRIOR TO IV START; Start 07/25/19 at 07:00; Stop 07/26/19 at 06:59; Status DC Prochlorperazine Edisylate (Compazine) 5 mg PACU PRN PRN IV NAUSEA, MRX1; Start 07/25/19 at 07:00; Stop 07/26/19 at 06:59; Status DC Sodium Chloride 1,000 ml @ 1,000 mls/hr Q1H PRN IV hypotension; Start 07/23/19 at 09:10; Stop 07/23/19 at 15:09; Status DC Albumin Human 200 ml @ 200 mls/hr 1X PRN PRN IV Hypotension Last administered on 07/23/19at 10:10; Start 07/23/19 at 09:15; Stop 07/23/19 at 15:14; Status DC Sodium Chloride 1,000 ml @ 400 mls/hr Q2H30M PRN IV PATENCY; Start 07/23/19 at 09:10; Stop 07/23/19 at 21:09; Status DC Info (PHARMACY MONITORING -- do not chart) 1 each PRN DAILY PRN MC SEE COMMENTS; Start 07/23/19 at 09:15; Stop 07/24/19 at 12:45; Status DC Info (PHARMACY MONITORING -- do not chart) 1 each PRN DAILY PRN MC SEE COMMENTS; Start 07/23/19 at 09:15; Stop 07/24/19 at 12:45; Status DC Sodium Chloride 90 meq/Potassium Chloride 15 meq/ Potassium Phosphate 10 mmol/ Magnesium Sulfate 8 meq/Calcium Gluconate 15 meq/ Multivitamins 10 ml/Chromium/ Copper/Manganese/ Seleni/Zn 0.5 ml/ Insulin Human Regular 25 unit/ Total Parenteral Nutrition/Amino Acids/Dextrose/ Fat Emulsion Intravenous 1,400 ml @ 58.333 mls/ hr TPN CONT IV Last administered on 07/23/19at 22:10; Start 07/23/19 at 22:00; Stop 07/24/19 at 21:59; Status DC Magnesium Sulfate 50 ml @ 25 mls/hr PRN DAILY PRN IV for Mag < 1.7 on am labs Last administered on 08/08/19at 17:27; Start 07/24/19 at 09:15 Sodium Chloride 90 meq/Potassium Chloride 15 meq/ Potassium Phosphate 10 mmol/ Magnesium Sulfate 8 meq/Calcium Gluconate 15 meq/ Multivitamins 10 ml/Chromium/ Copper/Manganese/ Seleni/Zn 0.5 ml/ Insulin Human Regular 25 unit/ Total Parenteral Nutrition/Amino Acids/Dextrose/ Fat Emulsion Intravenous 1,400 ml @ 58.333 mls/ hr TPN CONT IV Last administered on 07/24/19at 21:20; Start 07/24/19 at 22:00; Stop 07/25/19 at 21:59; Status DC Sodium Chloride 1,000 ml @ 1,000 mls/hr Q1H PRN IV hypotension; Start 07/24/19 at 12:23; Stop 07/24/19 at 18:22; Status DC Albumin Human 200 ml @ 200 mls/hr 1X ONCE IV Last administered on 07/24/19at 13:34; Start 07/24/19 at 12:30; Stop 07/24/19 at 13:29; Status DC Diphenhydramine HCl (Benadryl) 25 mg 1X PRN PRN IV ITCHING; Start 07/24/19 at 12:30; Stop 07/25/19 at 12:29; Status DC Diphenhydramine HCl (Benadryl) 25 mg 1X PRN PRN IV ITCHING; Start 07/24/19 at 12:30; Stop 07/25/19 at 12:29; Status DC Info (PHARMACY MONITORING -- do not chart) 1 each PRN DAILY PRN MC SEE COMMENTS; Start 07/24/19 at 12:30; Status Cancel Bupivacaine HCl/ Epinephrine Bitart (Sensorcain-Epi 0.5%-1:[id number] Mpf) 30 ml STK-MED ONCE .ROUTE Last administered on 07/25/19at 11:44; Start 07/25/19 at 11 :00; Stop 07/25/19 at 11:01; Status DC Cellulose (Surgicel Fibrillar 1x2) 1 each STK-MED ONCE .ROUTE ; Start 07/25/19 at 11:00; Stop 07/25/19 at 11:01; Status DC Sodium Chloride 90 meq/Potassium Chloride 15 meq/ Potassium Phosphate 10 mmol/ Magnesium Sulfate 12 meq/Calcium Gluconate 15 meq/ Multivitamins 10 ml/Chromium/ Copper/Manganese/ Seleni/Zn 0.5 ml/ Insulin Human Regular 25 unit/ Total Parenteral Nutrition/Amino Acids/Dextrose/ Fat Emulsion Intravenous 1,400 ml @ 58.333 mls/ hr TPN CONT IV Last administered on 07/25/19at 22:24; Start 07/25/19 at 22:00; Stop 07/26/19 at 21:59; Status DC Propofol 20 ml @ As Directed STK-MED ONCE IV ; Start 07/25/19 at 11:07; Stop 07/25/19 at 11:07; Status DC Cellulose (Surgicel Hemostat 4x8) 1 each STK-MED ONCE .ROUTE Last administered on 07/25/19at 11:44; Start 07/25/19 at 11:55; Stop 07/25/19 at 11:56; Status DC Sevoflurane (Ultane) 60 ml STK-MED ONCE IH ; Start 07/25/19 at 12:46; Stop 07/25/19 at 12:46; Status DC Sodium Chloride 1,000 ml @ 1,000 mls/hr Q1H PRN IV hypotension; Start 07/25/19 at 13:51; Stop 07/25/19 at 19:50; Status DC Albumin Human 200 ml @ 200 mls/hr 1X PRN PRN IV Hypotension Last administered on 07/25/19at 14:51; Start 07/25/19 at 14:00; Stop 07/25/19 at 19:59; Status DC Diphenhydramine HCl (Benadryl) 25 mg 1X PRN PRN IV ITCHING; Start 07/25/19 at 14:00; Stop 07/26/19 at 13:59; Status DC Diphenhydramine HCl (Benadryl) 25 mg 1X PRN PRN IV ITCHING; Start 07/25/19 at 14:00; Stop 07/26/19 at 13:59; Status DC Sodium Chloride 1,000 ml @ 400 mls/hr Q2H30M PRN IV PATENCY; Start 07/25/19 at 13:51; Stop 07/26/19 at 01:50; Status DC Info (PHARMACY MONITORING -- do not chart) 1 each PRN DAILY PRN MC SEE COMMENTS; Start 07/25/19 at 14:00; Stop 07/28/19 at 08:16; Status DC Heparin Sodium (Porcine) (Hep Lock Adult) 500 unit STK-MED ONCE IVP ; Start 07/26/19 at 09:29; Stop 07/26/19 at 09:30; Status DC Sodium Chloride 1,000 ml @ 1,000 mls/hr Q1H PRN IV hypotension; Start 07/26/19 at 10:43; Stop 07/26/19 at 16:42; Status DC Sodium Chloride 1,000 ml @ 400 mls/hr Q2H30M PRN IV PATENCY; Start 07/26/19 at 10:43; Stop 07/26/19 at 22:42; Status DC Info (PHARMACY MONITORING -- do not chart) 1 each PRN DAILY PRN MC SEE COMMENTS; Start 07/26/19 at 10:45; Status UNV Info (PHARMACY MONITORING -- do not chart) 1 each PRN DAILY PRN MC SEE CO MMENTS; Start 07/26/19 at 10:45; Status UNV Sodium Chloride 90 meq/Potassium Chloride 15 meq/ Magnesium Sulfate 12 meq/Calcium Gluconate 15 meq/ Multivitamins 10 ml/Chromium/ Copper/Manganese/ Seleni/Zn 0.5 ml/ Insulin Human Regular 25 unit/ Total Parenteral Nutrition/Amino Acids/Dextrose/ Fat Emulsion Intravenous 1,400 ml @ 58.333 mls/ hr TPN CONT IV Last administered on 07/26/19at 22:13; Start 07/26/19 at 22:00; Stop 07/27/19 at 21:59; Status DC Sodium Chloride 1,000 ml @ 1,000 mls/hr Q1H PRN IV hypotension; Start 07/27/19 at 07:50; Stop 07/27/19 at 13:49; Status DC Albumin Human 200 ml @ 200 mls/hr 1X ONCE IV ; Start 07/27/19 at 08:00; Stop 07/27/19 at 08:53; Status DC Diphenhydramine HCl (Benadryl) 25 mg 1X PRN PRN IV ITCHING; Start 07/27/19 at 08:00; Stop 07/28/19 at 07:59; Status DC Diphenhydramine HCl (Benadryl) 25 mg 1X PRN PRN IV ITCHING; Start 07/27/19 at 08:00; Stop 07/28/19 at 07:59; Status DC Info (PHARMACY MONITORING -- do not chart) 1 each PRN DAILY PRN MC SEE COMMENTS; Start 07/27/19 at 08:00; Stop 07/28/19 at 08:16; Status DC Albumin Human 50 ml @ 50 mls/hr 1X ONCE IV ; Start 07/27/19 at 08:53; Stop 07/27/19 at 08:56; Status DC Albumin Human 200 ml @ 50 mls/hr PRN 1X PRN IV HYPOTENSION Last administered on 08/02/19at 11:54; Start 07/27/19 at 09:00; Stop 09/08/19 at 11:14; Status DC Meropenem 500 mg/ Sodium Chloride 50 ml @ 100 mls/hr Q12H IV Last administered on 08/16/19at 10:45; Start 07/27/19 at 10:00; Stop 08/16/19 at 12:37; Status DC Sodium Chloride 90 meq/Magnesium Sulfate 12 meq/ Calcium Gluconate 15 meq/ Multivitamins 10 ml/Chromium/ Copper/Manganese/ Seleni/Zn 0.5 ml/ Insulin Human Regular 25 unit/ Total Parenteral Nutrition/Amino Acids/Dextrose/ Fat Emulsion Intravenous 1,400 ml @ 58.333 mls/ hr TPN CONT IV Last administered on 07/27/19at 21:41; Start 07/27/19 at 22:00; Stop 07/28/19 at 21:59; Status DC Sodium Chloride 1,000 ml @ 1,000 mls/hr Q1H PRN IV hypotension; Start 07/28/19 at 07:58; Stop 07/28/19 at 13:57; Status DC Albumin Human 200 ml @ 200 mls/hr 1X PRN PRN IV Hypotension Last administered on 07/28/19at 09:30; Start 07/28/19 at 08:00; Stop 07/28/19 at 13:59; Status DC Sodium Chloride 1,000 ml @ 400 mls/hr Q2H30M PRN IV PATENCY; Start 07/28/19 at 07:58; Stop 07/28/19 at 19:57; Status DC Info (PHARMACY MONITORING -- do not chart) 1 each PRN DAILY PRN MC SEE COMMENTS; Start 07/28/19 at 08:00; Status Cancel Info (PHARMACY MONITORING -- do not chart) 1 each PRN DAILY PRN MC SEE COMMENTS; Start 07/28/19 at 08:15; Status UNV Sodium Chloride 90 meq/Potassium Phosphate 5 mmol/ Magnesium Sulfate 12 meq/Calcium Gluconate 15 meq/ Multivitamins 10 ml/Chromium/ Copper/Manganese/ Seleni/Zn 0.5 ml/ Insulin Human Regular 30 unit/ Total Parenteral Nutrition/Amino Acids/Dextrose/ Fat Emulsion Intravenous 1,400 ml @ 58.333 mls/ hr TPN CONT IV Last administered on 07/28/19at 22:08; Start 07/28/19 at 22:00; Stop 07/29/19 at 21:59; Status DC Linezolid/Dextrose 300 ml @ 300 mls/hr Q12HR IV Last administered on 08/08/19at 20:40; Start 07/29/19 at 11:00; Stop 08/09/19 at 08:10; Status DC Sodium Chloride 90 meq/Potassium Phosphate 15 mmol/ Magnesium Sulfate 12 meq/Calcium Gluconate 15 meq/ Multivitamins 10 ml/Chromium/ Copper/Manganese/ Seleni/Zn 0.5 ml/ Insulin Human Regular 30 unit/ Total Parenteral Nutrition/Amino Acids/Dextrose/ Fat Emulsion Intravenous 1,400 ml @ 58.333 mls/ hr TPN CONT IV Last administered on 07/29/19at 21:49; Start 07/29/19 at 22:00; Stop 07/30/19 at 21:59; Status DC Sodium Chloride 90 meq/Potassium Phosphate 15 mmol/ Magnesium Sulfate 12 meq/Calcium Gluconate 15 meq/ Multivitamins 10 ml/Chromium/ Copper/Manganese/ Seleni/Zn 0.5 ml/ Insulin Human Regular 40 unit/ Total Parenteral Nutrition/Amino Acids/Dextrose/ Fat Emulsion Intravenous 1,400 ml @ 58.333 mls/ hr TPN CONT IV Last administered on 07/30/19at 21:21; Start 07/30/19 at 22:00; Stop 07/31/19 at 21:59; Status DC Sodium Chloride 1,000 ml @ 1,000 mls/hr Q1H PRN IV hypotension; Start 07/30/19 at 13:26; Stop 07/30/19 at 19:25; Status DC Albumin Human 200 ml @ 200 mls/hr 1X PRN PRN IV Hypotension Last administered on 07/30/19at 15:00; Start 07/30/19 at 13:30; Stop 07/30/19 at 19:29; Status DC Sodium Chloride (Normal Saline Flush) 10 ml 1X PRN PRN IV AP catheter pack; Start 07/30/19 at 13:30; Stop 07/31/19 at 13:29; Status DC Sodium Chloride (Normal Saline Flush) 10 ml 1X PRN PRN IV REGULATOR INSPECTOR catheter pack; Start 07/30/19 at 13:30; Stop 07/31/19 at 13:29; Status DC Sodium Chloride 1,000 ml @ 400 mls/hr Q2H30M PRN IV PATENCY; Start 07/30/19 at 13:26; Stop 07/31/19 at 01:25; Status DC Info (PHARMACY MONITORING -- do not chart) 1 each PRN DAILY PRN MC SEE COMMENTS; Start 07/30/19 at 13:30; Stop 07/30/19 at 13:33; Status DC Info (PHARMACY MONITORING -- do not chart) 1 each PRN DAILY PRN MC SEE COMMENTS; Start 07/30/19 at 13:30; Stop 07/30/19 at 13:34; Status DC Sodium Chloride 90 meq/Potassium Phosphate 19 mmol/ Magnesium Sulfate 12 meq/Calcium Gluconate 15 meq/ Multivitamins 10 ml/Chromium/ Copper/Manganese/ Seleni/Zn 0.5 ml/ Insulin Human Regular 40 unit/ Total Parenteral Nutrition/Amino Acids/Dextrose/ Fat Emulsion Intravenous 1,400 ml @ 58.333 mls/ hr TPN CONT IV Last administered on 07/31/19at 21:54; Start 07/31/19 at 22:00; Stop 08/01/19 at 21:59; Status DC Sodium Chloride 1,000 ml @ 1,000 mls/hr Q1H PRN IV hypotension; Start 08/01/19 at 09:35; Stop 08/01/19 at 15:34; Status DC Albumin Human 200 ml @ 200 mls/hr 1X PRN PRN IV Hypotension; Start 08/01/19 at 09:45; Stop 08/01/19 at 15:44; Status DC Diphenhydramine HCl (Benadryl) 25 mg 1X PRN PRN IV ITCHING; Start 08/01/19 at 09:45; Stop 08/02/19 at 09:44; Status DC Diphenhydramine HCl (Benadryl) 25 mg 1X PRN PRN IV ITCHING; Start 08/01/19 at 09:45; Stop 08/02/19 at 09:44; Status DC Sodium Chloride 1,000 ml @ 400 mls/hr Q2H30M PRN IV PATENCY; Start 08/01/19 at 09:35; Stop 08/01/19 at 21:34; Status DC Info (PHARMACY MONITORING -- do not chart) 1 each PRN DAILY PRN MC SEE COMMENTS; Start 08/01/19 at 09:45; Status Cancel Sodium Chloride 100 meq/Potassium Phosphate 19 mmol/ Magnesium Sulfate 12 meq/Calcium Gluconate 15 meq/ Multivitamins 10 ml/Chromium/ Copper/Manganese/ Seleni/Zn 0.5 ml/ Insulin Human Regular 40 unit/ Potassium Chloride 20 meq/ Total Parenteral Nutrition/Amino Acids/Dextrose/ Fat Emulsion Intravenous 1,400 ml @ 58.333 mls/ hr TPN CONT IV Last administered on 08/01/19at 22:02; Start 08/01/19 at 22:00; Stop 08/02/19 at 21:59; Status DC Furosemide (Lasix) 40 mg 1X ONCE IVP Last administered on 08/01/19at 14:39; Start 08/01/19 at 14:30; Stop 08/01/19 at 14:31; Status DC Metronidazole 100 ml @ 100 mls/hr Q8HRS IV Last administered on 08/09/19at 06: 04; Start 08/02/19 at 10:00; Stop 08/09/19 at 08:10; Status DC Sodium Chloride 1,000 ml @ 1,000 mls/hr Q1H PRN IV hypotension; Start 08/02/19 at 08:00; Stop 08/02/19 at 13:59; Status DC Albumin Human 200 ml @ 200 mls/hr 1X PRN PRN IV Hypotension; Start 08/02/19 at 08:00; Stop 08/02/19 at 13:59; Status DC Sodium Chloride 1,000 ml @ 400 mls/hr Q2H30M PRN IV PATENCY; Start 08/02/19 at 08:00; Stop 08/02/19 at 19:59; Status DC Info (PHARMACY MONITORING -- do not chart) 1 each PRN DAILY PRN MC SEE PIPE TS; Start 08/02/19 at 11:30; Status UNV Info (PHARMACY MONITORING -- do not chart) 1 each PRN DAILY PRN MC SEE COMMENTS; Start 08/02/19 at 11:30; Stop 08/04/19 at 12:13; Status DC Sodium Chloride 100 meq/Potassium Phosphate 19 mmol/ Magnesium Sulfate 12 meq/Calcium Gluconate 15 meq/ Multivitamins 10 ml/Chromium/ Copper/Manganese/ Seleni/Zn 0.5 ml/ Insulin Human Regular 40 unit/ Potassium Chloride 20 meq/ Total Parenteral Nutrition/Amino Acids/Dextrose/ Fat Emulsion Intravenous 1,400 ml @ 58.333 mls/ hr TPN CONT IV Last administered on 08/02/19at 21:52; Start 08/02/19 at 22:00; Stop 08/03/19 at 21:59; Status DC Sodium Chloride (Normal Saline Flush) 10 ml QSHIFT PRN IV AFTER MEDS AND BLOOD DRAWS; Start 08/02/19 at 15:00; Stop 08/30/19 at 11:27; Status DC Sodium Chloride (Normal Saline Flush) 10 ml PRN Q5MIN PRN IV AFTER MEDS AND BLOOD DRAWS; Start 08/02/19 at 15:00 Sodium Chloride (Normal Saline Flush) 20 ml PRN Q5MIN PRN IV AFTER MEDS AND BLOOD DRAWS; Start 08/02/19 at 15:00 Sodium Chloride 100 meq/Potassium Phosphate 19 mmol/ Magnesium Sulfate 12 meq/Calcium Gluconate 15 meq/ Multivitamins 10 ml/Chromium/ Copper/Manganese/ S thien/Zn 0.5 ml/ Insulin Human Regular 40 unit/ Potassium Chloride 20 meq/ Total Parenteral Nutrition/Amino Acids/Dextrose/ Fat Emulsion Intravenous 1,400 ml @ 58.333 mls/ hr TPN CONT IV Last administered on 08/03/19at 21:20; Start 08/03/19 at 22:00; Stop 08/04/19 at 21:59; Status DC Lidocaine HCl (Buffered Lidocaine 1%) 3 ml STK-MED ONCE .ROUTE ; Start 08/03/19 at 13:16; Stop 08/03/19 at 13:16; Status DC Lidocaine HCl (Buffered Lidocaine 1%) 6 ml 1X ONCE INJ Last administered on 08/03/19at 13:45; Start 08/03/19 at 13:30; Stop 08/03/19 at 13:31; Status DC Albumin Human 100 ml @ 100 mls/hr 1X ONCE IV Last administered on 08/03/19at 15:41; Start 08/03/19 at 15:00; Stop 08/03/19 at 15:59; Status DC Albumin Human 50 ml @ 50 mls/hr 1X ONCE IV Last administered on 08/03/19at 15:00; Start 08/03/19 at 15:00; Stop 08/03/19 at 15:59; Status DC Info (PHARMACY MONITORING -- do not chart) 1 each PRN DAILY PRN MC SEE COMMENTS; Start 08/04/19 at 11:30; Status Cancel Info (PHARMACY MONITORING -- do not chart) 1 each PRN DAILY PRN MC SEE COMMENTS; Start 08/04/19 at 11:30; Status UNV Sodium Chloride 100 meq/Potassium Phosphate 10 mmol/ Magnesium Sulfate 12 meq/Calcium Gluconate 15 meq/ Multivitamins 10 ml/Chromium/ Copper/Manganese/ Seleni/Zn 0.5 ml/ Insulin Human Regular 35 unit/ Potassium Chloride 20 meq/ Total Parenteral Nutrition/Amino Acids/Dextrose/ Fat Emulsion Intravenous 1,400 ml @ 58.333 mls/ hr TPN CONT IV Last administered on 08/04/19at 22:10; Start 08/04/19 at 22:00; Stop 08/05/19 at 21:59; Status DC Sodium Chloride 100 meq/Potassium Phosphate 5 mmol/ Magnesium Sulfate 12 meq/Calcium Gluconate 15 meq/ Multivitamins 10 ml/Chromium/ Copper/Manganese/ Seleni/Zn 0.5 ml/ Insulin Human Regular 35 unit/ Potassium Chloride 20 meq/ Total Parenteral Nutrition/Amino Acids/Dextrose/ Fat Emulsion Intravenous 1,400 ml @ 58.333 mls/ hr TPN CONT IV Last administered on 08/05/19at 22:59; Start 08/05/19 at 22:00; Stop 08/06/19 at 21:59; Status DC Sodium Chloride 1,000 ml @ 1,000 mls/hr Q1H PRN IV hypotension; Start 08/06/19 at 08:27; Stop 08/06/19 at 14:26; Status DC Albumin Human 200 ml @ 200 mls/hr 1X PRN PRN IV Hypotension Last administered on 08/06/19at 09:18; Start 08/06/19 at 08:30; Stop 08/06/19 at 14:29; Status DC Sodium Chloride 1,000 ml @ 400 mls/hr Q2H30M PRN IV PATENCY; Start 08/06/19 at 08:27; Stop 08/06/19 at 20:26; Status DC Info (PHARMACY MONITORING -- do not chart) 1 each PRN DAILY PRN MC SEE COMMENTS; Start 08/06/19 at 08:30; Status Cancel Info (PHARMACY MONITORING -- do not chart) 1 each PRN DAILY PRN MC SEE COMMENTS; Start 08/06/19 at 08:30; Stop 08/14/19 at 13:10; Status DC Sodium Chloride 100 meq/Potassium Chloride 40 meq/ Magnesium Sulfate 15 meq/Calcium Gluconate 15 meq/ Multivitamins 10 ml/Chromium/ Copper/Manganese/ Seleni/Zn 0.5 ml/ Insulin Human Regular 35 unit/ Total Parenteral Nutrition/Amino Acids/Dextrose/ Fat Emulsion Intravenous 1,400 ml @ 58.333 mls/ hr TPN CONT IV Last administered on 08/06/19at 22:00; Start 08/06/19 at 22:00; Stop 08/07/19 at 21:59; Status DC Potassium Chloride/Water 100 ml @ 100 mls/hr 1X ONCE IV Last administered on 08/06/19at 17:28; Start 08/06/19 at 14:45; Stop 08/06/19 at 15:44; Status DC Sodium Chloride 100 meq/Potassium Chloride 40 meq/ Magnesium Sulfate 15 meq/Calcium Gluconate 15 meq/ Multivitamins 10 ml/Chromium/ Copper/Manganese/ Seleni/Zn 0.5 ml/ Insulin Human Regular 35 unit/ Total Parenteral Nutrition/Amino Acids/Dextrose/ Fat Emulsion Intravenous 1,400 ml @ 58.333 mls/ hr TPN CONT IV Last administered on 08/07/19at 22:46; Start 08/07/19 at 22:00; Stop 08/08/19 at 21:59; Status DC Sodium Chloride 100 meq/Potassium Chloride 40 meq/ Magnesium Sulfate 20 meq/Calcium Gluconate 15 meq/ Multivitamins 10 ml/Chromium/ Copper/Manganese/ Seleni/Zn 0.5 ml/ Insulin Human Regular 35 unit/ Total Parenteral Nutrition/Amino Acids/Dextrose/ Fat Emulsion Intravenous 1,400 ml @ 58.333 mls/ hr TPN CONT IV Last administered on 08/08/19at 22:31; Start 08/08/19 at 22:00; Stop 08/09/19 at 21:59; Status DC Fentanyl Citrate (Fentanyl 2ml Vial) 50 mcg PRN Q2HR PRN IVP PAIN Last administered on 08/15/19at 13:32; Start 08/08/19 at 21:00; Stop 08/16/19 at 12:53; Status DC Fentanyl Citrate (Fentanyl 2ml Vial) 25 mcg PRN Q2HR PRN IVP PAIN; Start 08/08/19 at 21:00; Stop 08/16/19 at 12:54; Status DC Enoxaparin Sodium (Lovenox 100mg Syringe) 100 mg Q12HR SQ ; Start 08/09/19 at 21:00; Status UNV Amino Acids/ Glycerin/ Electrolytes 1,000 ml @ 75 mls/hr [id number] IV ; Start 08/08/19 at 21:15; Status UNV Sodium Chloride 1,000 ml @ 1,000 mls/hr Q1H PRN IV hypotension; Start 08/09/19 at 07:56; Stop 08/09/19 at 13:55; Status DC Albumin Human 200 ml @ 200 mls/hr 1X PRN PRN IV Hypotension Last administered on 08/09/19at 08:40; Start 08/09/19 at 08:00; Stop 08/09/19 at 13:59; Status DC Sodium Chloride 1,000 ml @ 400 mls/hr Q2H30M PRN IV PATENCY; Start 08/09/19 at 07:56; Stop 08/09/19 at 19:55; Status DC Info (PHARMACY MONITORING -- do not chart) 1 each PRN DAILY PRN MC SEE COMMENTS; Start 08/09/19 at 08:00; Status UNV Info (PHARMACY MONITORING -- do not chart) 1 each PRN DAILY PRN MC SEE COMMENTS; Start 08/09/19 at 08:00; Status UNV Daptomycin 430 mg/ Sodium Chloride 50 ml @ 100 mls/hr Q24H IV Last administered on 08/09/19at 12:35; Start 08/09/19 at 09:00; Stop 08/09/19 at 12:49; Status DC Sodium Chloride 100 meq/Potassium Chloride 40 meq/ Magnesium Sulfate 20 meq/Calcium Gluconate 15 meq/ Multivitamins 10 ml/Chromium/ Copper/Manganese/ Seleni/Zn 0.5 ml/ Insulin Human Regular 35 unit/ Total Parenteral Nutrition/Amino Acids/Dextrose/ Fat Emulsion Intravenous 1,400 ml @ 58.333 mls/ hr TPN CONT IV Last administered on 08/09/19at 21:26; Start 08/09/19 at 22:00; Stop 08/10/19 at 21:59; Status DC Daptomycin 430 mg/ Sodium Chloride 50 ml @ 100 mls/hr Q48H IV ; Start 08/11/19 at 09:00; Stop 08/10/19 at 11:55; Status DC Sodium Chloride 100 meq/Potassium Chloride 40 meq/ Magnesium Sulfate 20 meq/Calcium Gluconate 15 meq/ Multivitamins 10 ml/Chromium/ Copper/Manganese/ Seleni/Zn 0.5 ml/ Insulin Human Regular 35 unit/ Total Parenteral Nutrition/Amino Acids/Dextrose/ Fat Emulsion Intravenous 1,400 ml @ 58.333 mls/ hr TPN CONT IV Last administered on 08/10/19at 22:27; Start 08/10/19 at 22:00; Stop 08/11/19 at 21:59; Status DC Daptomycin 430 mg/ Sodium Chloride 50 ml @ 100 mls/hr Q24H IV Last administered on 08/12/19at 15:07; Start 08/10/19 at 13:00; Stop 08/13/19 at 13:15; Status DC Sodium Chloride 100 meq/Potassium Chloride 40 meq/ Magnesium Sulfate 20 meq/Calcium Gluconate 10 meq/ Multivitamins 10 ml/Chromium/ Copper/Manganese/ Seleni/Zn 0.5 ml/ Insulin Human Regular 35 unit/ Total Parenteral Nutrition/Amino Acids/Dextrose/ Fat Emulsion Intravenous 1,400 ml @ 58.333 mls/ hr TPN CONT IV Last administered on 08/12/19at 00:06; Start 08/11/19 at 22:00; Stop 08/12/19 at 21:59; Status DC Alteplase, Recombinant (Cathflo For Central Catheter Clearance) 1 mg 1X ONCE INT CAT Last administered on 08/12/19at 11:44; Start 08/12/19 at 10:45; Stop 08/12/19 at 10:46; Status DC Ondansetron HCl (Zofran) 4 mg PRN Q6HRS PRN IV NAUSEA/VOMITING; Start 08/15/19 at 07:00; Stop 08/16/19 at 06:59; Status DC Fentanyl Citrate (Fentanyl 2ml Vial) 25 mcg PRN Q5MIN PRN IV MILD PAIN 1-3; Start 08/15/19 at 07:00; Stop 08/16/19 at 06:59; Status DC Fentanyl Citrate (Fentanyl 2ml Vial) 50 mcg PRN Q5MIN PRN IV MODERATE TO SEVERE PAIN Last administered on 08/15/19at 10:17; Start 08/15/19 at 07:00; Stop 08/16/19 at 06:59; Status DC Ringer's Solution 1,000 ml @ 30 mls/hr Q24H IV ; Start 08/15/19 at 07:00; Stop 08/15/19 at 18:59; Status DC Lidocaine HCl (Xylocaine-Mpf 1% 2ml Vial) 2 ml PRN 1X PRN ID PRIOR TO IV START; Start 08/15/19 at 07:00; Stop 08/16/19 at 06:59; Status DC Prochlorperazine Edisylate (Compazine) 5 mg PACU PRN PRN IV NAUSEA, MRX1; Start 08/15/19 at 07:00; Stop 08/16/19 at 06:59; Status DC Sodium Acetate 50 meq/Potassium Acetate 55 meq/ Magnesium Sulfate 20 meq/Calcium Gluconate 10 meq/ Multivitamins 10 ml/Chromium/ Copper/Manganese/ Seleni/Zn 0.5 ml/ Insulin Human Regular 35 unit/ Total Parenteral Nutrition/Amino Acids/Dextrose/ Fat Emulsion Intravenous 1,400 ml @ 58.333 mls/ hr TPN CONT IV ; Start 08/12/19 at 22:00; Stop 08/12/19 at 14:15; Status DC Sodium Acetate 50 meq/Potassium Acetate 55 meq/ Magnesium Sulfate 20 meq/Calcium Gluconate 10 meq/ Multivitamins 10 ml/Chromium/ Copper/Manganese/ Seleni/Zn 0.5 ml/ Insulin Human Regular 35 unit/ Total Parenteral Nutrition/Amino Acids/Dextrose/ Fat Emulsion Intravenous 1,800 ml @ 75 mls/hr TPN CONT IV Last administered on 08/12/19at 22:38; Start 08/12/19 at 22:00; Stop 08/13/19 at 21:59; Status DC Sodium Chloride 1,000 ml @ 1,000 mls/hr Q1H PRN IV hypotension; Start 08/12/19 at 15:31; Stop 08/12/19 at 21:30; Status DC Diphenhydramine HCl (Benadryl) 25 mg 1X PRN PRN IV ITCHING; Start 08/12/19 at 15:45; Stop 08/13/19 at 15:44; Status DC Diphenhydramine HCl (Benadryl) 25 mg 1X PRN PRN IV ITCHING; Start 08/12/19 at 15:45; Stop 08/13/19 at 15:44; Status DC Sodium Chloride 1,000 ml @ 400 mls/hr Q2H30M PRN IV PATENCY; Start 08/12/19 at 15:31; Stop 08/13/19 at 03:30; Status DC Info (PHARMACY MONITORING -- do not chart) 1 each PRN DAILY PRN MC SEE COMMENTS; Start 08/12/19 at 15:45 Sodium Acetate 50 meq/Potassium Acetate 55 meq/ Magnesium Sulfate 20 meq/Calcium Gluconate 10 meq/ Multivitamins 10 ml/Chromium/ Copper/Manganese/ Seleni/Zn 0.5 ml/ Insulin Human Regular 35 unit/ Total Parenteral Nutrition/Amino Acids/Dextrose/ Fat Emulsion Intravenous 1,800 ml @ 75 mls/hr TPN CONT IV Last administered on 08/13/19at 22:03; Start 08/13/19 at 22:00; Stop 08/14/19 at 21:59; Status DC Daptomycin 430 mg/ Sodium Chloride 50 ml @ 100 mls/hr Q24H IV Last administered on 08/18/19at 13:00; Start 08/13/19 at 13:00; Stop 08/18/19 at 20:58; Status DC Heparin Sodium (Porcine) 1000 unit/Sodium Chloride 1,001 ml @ 1,001 mls/hr 1X ONCE IRR ; Start 08/15/19 at 06:00; Stop 08/15/19 at 06:59; Status DC Potassium Acetate 55 meq/Magnesium Sulfate 20 meq/ Calcium Gluconate 10 meq/ Multivitamins 10 ml/Chromium/ Copper/Manganese/ Seleni/Zn 0.5 ml/ Insulin Human Regular 35 unit/ Total Parenteral Nutrition/Amino Acids/Dextrose/ Fat Emulsion Intravenous 1,920 ml @ 80 mls/hr TPN CONT IV Last administered on 08/14/19at 22:10; Start 08/14/19 at 22:00; Stop 08/15/19 at 21:59; Status DC Dexamethasone Sodium Phosphate (Decadron) 4 mg STK-MED ONCE .ROUTE ; Start 08/15/19 at 10:56; Stop 08/15/19 at 10:57; Status DC Ondansetron HCl (Zofran) 4 mg STK-MED ONCE .ROUTE ; Start 08/15/19 at 10:56; Stop 08/15/19 at 10:57; Status DC Rocuronium [place] (Zemuron) 50 mg STK-MED ONCE .ROUTE ; Start 08/15/19 at 10:56; Stop 08/15/19 at 10:57; Status DC Fentanyl Citrate (Fentanyl 2ml Vial) 100 mcg STK-MED ONCE .ROUTE ; Start 08/15/19 at 10:56; Stop 08/15/19 at 10:57; Status DC Bupivacaine HCl/ Epinephrine Bitart (Sensorcain-Epi 0.5%-1:[id number] Mpf) 30 ml STK-MED ONCE .ROUTE Last administered on 08/15/19at 12:01; Start 08/15/19 at 10:58; Stop 08/15/19 at 10:58; Status DC Cellulose (Surgicel Hemostat 2x14) 1 each STK-MED ONCE .ROUTE ; Start 08/15/19 at 10:58; Stop 08/15/19 at 10:59; Status DC Iohexol (Omnipaque 300 Mg/ml) 50 ml STK-MED ONCE .ROUTE ; Start 08/15/19 at 10:58; Stop 08/15/19 at 10:59; Status DC Cellulose (Surgicel Hemostat 4x8) 1 each STK-MED ONCE .ROUTE ; Start 08/15/19 at 10:58; Stop 08/15/19 at 10:59; Status DC Bisacodyl (Dulcolax Supp) 10 mg STK-MED ONCE .ROUTE ; Start 08/15/19 at 10:59; Stop 08/15/19 at 10:59; Status DC Heparin Sodium (Porcine) 1000 unit/Sodium Chloride 1,001 ml @ 1,001 mls/hr 1X ONCE IRR ; Start 08/15/19 at 12:00; Stop 08/15/19 at 12:59; Status DC Propofol 20 ml @ As Directed STK-MED ONCE IV ; Start 08/15/19 at 11:05; Stop 08/15/19 at 11:05; Status DC Sevoflurane (Ultane) 90 ml STK-MED ONCE IH ; Start 08/15/19 at 11:05; Stop 08/15/19 at 11:05; Status DC Sevoflurane (Ultane) 60 ml STK-MED ONCE IH ; Start 08/15/19 at 12:26; Stop 08/15/19 at 12:27; Status DC Propofol 20 ml @ As Directed STK-MED ONCE IV ; Start 08/15/19 at 12:26; Stop 08/15/19 at 12:27; Status DC Phenylephrine HCl (PHENYLEPHRINE in 0.9% NACL PF) 1 mg STK-MED ONCE IV ; Start 08/15/19 at 12:34; Stop 08/15/19 at 12:34; Status DC Heparin Sodium (Porcine) (Heparin Sodium) 5,000 unit Q12HR SQ Last administered on 08/24/19at 20:57; Start 08/15/19 at 21:00; Stop 08/25/19 at 09:59; Status DC Sodium Chloride (Normal Saline Flush) 3 ml QSHIFT PRN IV AFTER MEDS AND BLOOD DRAWS; Start 08/15/19 at 13:45 Naloxone HCl (Narcan) 0.4 mg PRN Q2MIN PRN IV SEE INSTRUCTIONS; Start 08/15/19 at 13:45 Sodium Chloride 1,000 ml @ 25 mls/hr Q24H IV Last administered on 09/06/19at 13:37; Start 08/15/19 at 13:37 Naloxone HCl (Narcan) 0.4 mg PRN Q2MIN PRN IV SEE INSTRUCTIONS; Start 08/15/19 at 14:30; Status UNV Sodium Chloride 1,000 ml @ 25 mls/hr Q24H IV ; Start 08/15/19 at 14:30; Status UNV Hydromorphone HCl 30 ml @ 0 mls/hr CONT PRN PRN IV PER PROTOCOL Last administered on 08/20/19at 16:08; Start 08/15/19 at 14:30; Stop 08/22/19 at 08:55; Status DC Potassium Acetate 55 meq/Magnesium Sulfate 20 meq/ Calcium Gluconate 10 meq/ Multivitamins 10 ml/Chromium/ Copper/Manganese/ Seleni/Zn 0.5 ml/ Insulin Human Regular 35 unit/ Total Parenteral Nutrition/Amino Acids/Dextrose/ Fat Emulsion Intravenous 1,920 ml @ 80 mls/hr TPN CONT IV Last administered on 08/15/19at 22:01; Start 08/15/19 at 22:00; Stop 08/16/19 at 21:59; Status DC Bumetanide (Bumex) 2 mg [id number] IV Last administered on 08/19/19at 13:50; Start 08/16/19 at 14:00; Stop 08/20/19 at 14:10; Status DC Meropenem 1 gm/ Sodium Chloride 100 ml @ 200 mls/hr Q8HRS IV Last administered on 09/09/19at 05:53; Start 08/16/19 at 14:00; Stop 09/09/19 at 09:31; Status DC Potassium Acetate 55 meq/Magnesium Sulfate 20 meq/ Calcium Gluconate 10 meq/ Multivitamins 10 ml/Chromium/ Copper/Manganese/ Seleni/Zn 0.5 ml/ Insulin Human Regular 35 unit/ Total Parenteral Nutrition/Amino Acids/Dextrose/ Fat Emulsion Intravenous 1,920 ml @ 80 mls/hr TPN CONT IV Last administered on 08/16/19at 22:02; Start 08/16/19 at 22:00; Stop 08/17/19 at 21:59; Status DC Hydromorphone HCl (Dilaudid Standard ORDNANCE ENGINEERING TECHNICIAN) 12 mg STK-MED ONCE IV ; Start 08/15/19 at 14:35; Stop 08/16/19 at 13:53; Status DC Artificial Tears (Artificial Tears) 1 drop PRN Q15MIN PRN OU DRY EYE Last administered on 09/05/19at 08:08; Start 08/17/19 at 05:30 Hydromorphone HCl (Dilaudid Standard ORDNANCE ENGINEERING TECHNICIAN) 12 mg STK-MED ONCE IV ; Start 08/16/19 at 12:05; Stop 08/17/19 at 09:15; Status DC Potassium Acetate 65 meq/Magnesium Sulfate 20 meq/ Calcium Gluconate 10 meq/ Multivitamins 10 ml/Chromium/ Copper/Manganese/ Seleni/Zn 0.5 ml/ Insulin Human Regular 30 unit/ Total Parenteral Nutrition/Amino Acids/Dextrose/ Fat Emulsion Intravenous 1,920 ml @ 80 mls/hr TPN CONT IV Last administered on 08/17/19at 22:22; Start 08/17/19 at 22:00; Stop 08/18/19 at 21:59; Status DC Cyclobenzaprine HCl (Flexeril) 10 mg PRN Q6HRS PRN PO MUSCLE SPASMS; Start 08/18/19 at 10:45 Potassium Acetate 55 meq/Magnesium Sulfate 20 meq/ Calcium Gluconate 10 meq/ Multivitamins 10 ml/Chromium/ Copper/Manganese/ Seleni/Zn 0.5 ml/ Insulin Human Regular 30 unit/ Total Parenteral Nutrition/Amino Acids/Dextrose/ Fat Emulsion Intravenous 1,920 ml @ 80 mls/hr TPN CONT IV Last administered on 08/19/19at 01:00; Start 08/18/19 at 22:00; Stop 08/19/19 at 21:59; Status DC Magnesium Sulfate 50 ml @ 25 mls/hr 1X ONCE IV Last administered on 08/18/19at 17:18; Start 08/18/19 at 12:45; Stop 08/18/19 at 14:44; Status DC Potassium Chloride/Water 100 ml @ 100 mls/hr 1X ONCE IV Last administered on 08/19/19at 11:27; Start 08/19/19 at 12:00; Stop 08/19/19 at 12:59; Status DC Hydromorphone HCl (Dilaudid Standard ORDNANCE ENGINEERING TECHNICIAN) 12 mg STK-MED ONCE IV ; Start 08/17/19 at 10:50; Stop 08/19/19 at 11:02; Status DC Hydromorphone HCl (Dilaudid Standard ORDNANCE ENGINEERING TECHNICIAN) 12 mg STK-MED ONCE IV ; Start 08/18/19 at 13:47; Stop 08/19/19 at 11:03; Status DC Potassium Acetate 30 meq/Magnesium Sulfate 20 meq/ Calcium Gluconate 10 meq/ Multivitamins 10 ml/Chromium/ Copper/Manganese/ Seleni/Zn 0.5 ml/ Insulin Human Regular 30 unit/ Potassium Chloride 30 meq/ Total Parenteral Nutrition/Amino Acids/Dextrose/ Fat Emulsion Intravenous 1,920 ml @ 80 mls/hr TPN CONT IV Last administered on 08/19/19at 22:34; Start 08/19/19 at 22:00; Stop 08/20/19 at 21:59; Status DC Potassium Chloride/Water 100 ml @ 100 mls/hr Q1H IV Last administered on 08/20/19at 13:05; Start 08/20/19 at 07:00; Stop 08/20/19 at 10:59; Status DC Magnesium Sulfate 50 ml @ 25 mls/hr 1X ONCE IV Last administered on 08/20/19at 10:34; Start 08/20/19 at 10:30; Stop 08/20/19 at 12:29; Status DC Potassium Chloride 75 meq/ Magnesium Sulfate 20 meq/Calcium Gluconate 10 meq/ Multivitamins 10 ml/Chromium/ Copper/Manganese/ Seleni/Zn 0.5 ml/ Insulin Human Regular 30 unit/ Total Parenteral Nutrition/Amino Acids/Dextrose/ Fat Emulsion Intravenous 1,920 ml @ 80 mls/hr TPN CONT IV Last administered on 08/20/19at 21:51; Start 08/20/19 at 22:00; Stop 08/21/19 at 22:00; Status DC Potassium Chloride 75 meq/ Magnesium Sulfate 20 meq/Calcium Gluconate 10 meq/ Multivitamins 10 ml/Chromium/ Copper/Manganese/ Seleni/Zn 0.5 ml/ Insulin Human Regular 25 unit/ Total Parenteral Nutrition/Amino Acids/Dextrose/ Fat Emulsion Intravenous 1,920 ml @ 80 mls/hr TPN CONT IV Last administered on 08/21/19at 22:04; Start 08/21/19 at 22:00; Stop 08/22/19 at 21:59; Status DC Hydromorphone HCl (Dilaudid) 0.4 mg PRN Q4HRS PRN IVP PAIN Last administered on 08/22/19at 10:57; Start 08/22/19 at 09:00; Stop 08/22/19 at 18:59; Status DC Micafungin Sodium 100 mg/Dextrose 100 ml @ 100 mls/hr Q24H IV Last administered on 09/10/19at 10:33; Start 08/22/19 at 11:00 Daptomycin 485 mg/ Sodium Chloride 50 ml @ 100 mls/hr Q24H IV Last administered on 08/29/19at 13:10; Start 08/22/19 at 11:00; Stop 08/30/19 at 07:44; Status DC Potassium Chloride 75 meq/ Magnesium Sulfate 15 meq/Calcium Gluconate 8 meq/ Multivitamins 10 ml/Chromium/ Copper/Manganese/ Seleni/Zn 0.5 ml/ Insulin Human Regular 25 unit/ Total Parenteral Nutrition/Amino Acids/Dextrose/ Fat Emulsion Intravenous 1,920 ml @ 80 mls/hr TPN CONT IV Last administered on 08/22/19at 23:08; Start 08/22/19 at 22:00; Stop 08/23/19 at 21:59; Status DC Haloperidol Lactate (Haldol Inj) 3 mg 1X ONCE IVP Last administered on 08/22/19at 14:37; Start 08/22/19 at 14:30; Stop 08/22/19 at 14:31; Status DC Hydromorphone HCl (Dilaudid) 1 mg PRN Q4HRS PRN IVP PAIN Last administered on 09/05/19at 06:25; Start 08/22/19 at 19:00; Stop 09/05/19 at 17:10; Status DC Potassium Chloride 75 meq/ Magnesium Sulfate 15 meq/Calcium Gluconate 8 meq/ Multivitamins 10 ml/Chromium/ Copper/Manganese/ Seleni/Zn 0.5 ml/ Insulin Human Regular 20 unit/ Total Parenteral Nutrition/Amino Acids/Dextrose/ Fat Emulsion Intravenous 1,920 ml @ 80 mls/hr TPN CONT IV Last administered on 08/23/19at 22:10; Start 08/23/19 at 22:00; Stop 08/24/19 at 21:59; Status DC Lidocaine HCl (Buffered Lidocaine 1%) 3 ml STK-MED ONCE .ROUTE ; Start 08/24/19 at 11:31; Stop 08/24/19 at 11:31; Status DC Lidocaine HCl (Buffered Lidocaine 1%) 3 ml STK-MED ONCE .ROUTE ; Start 08/24/19 at 12:28; Stop 08/24/19 at 12:29; Status DC Lidocaine HCl (Buffered Lidocaine 1%) 6 ml 1X ONCE INJ Last administered on 08/24/19at 12:53; Start 08/24/19 at 12:45; Stop 08/24/19 at 12:46; Status DC Potassium Chloride 75 meq/ Magnesium Sulfate 15 meq/Calcium Gluconate 8 meq/ Multivitamins 10 ml/Chromium/ Copper/Manganese/ Seleni/Zn 0.5 ml/ Insulin Human Regular 20 unit/ Total Parenteral Nutrition/Amino Acids/Dextrose/ Fat Emulsion Intravenous 1,920 ml @ 80 mls/hr TPN CONT IV Last administered on 08/24/19at 22:00; Start 08/24/19 at 22:00; Stop 08/25/19 at 21:59; Status DC Potassium Chloride 75 meq/ Magnesium Sulfate 15 meq/Calcium Gluconate 8 meq/ Multivitamins 10 ml/Chromium/ Copper/Manganese/ Seleni/Zn 0.5 ml/ Insulin Human Regular 15 unit/ Total Parenteral Nutrition/Amino Acids/Dextrose/ Fat Emulsion Intravenous 1,920 ml @ 80 mls/hr TPN CONT IV Last administered on 08/25/19at 22:28; Start 08/25/19 at 22:00; Stop 08/26/19 at 21:59; Status DC Vecuronium [place] (Norcuron Bolus) 6 mg PRN Q6HRS PRN IV VENT ASYNCHRONY; Start 08/25/19 at 19:15; Stop 08/25/19 at 19:35; Status DC Bumetanide (Bumex) 2 mg 1X ONCE IV Last administered on 08/25/19at 22:09; Start 08/25/19 at 19:45; Stop 08/25/19 at 19:46; Status DC Lidocaine HCl (Buffered Lidocaine 1%) 3 ml STK-MED ONCE .ROUTE ; Start 08/26/19 at 07:59; Stop 08/26/19 at 07:59; Status DC Midazolam HCl (Versed) 5 mg STK-MED ONCE .ROUTE ; Start 08/26/19 at 08:36; Stop 08/26/19 at 08:36; Status DC Fentanyl Citrate (Fentanyl 5ml Vial) 250 mcg STK-MED ONCE .ROUTE ; Start 08/26/19 at 08:36; Stop 08/26/19 at 08:37; Status DC Lidocaine HCl (Buffered Lidocaine 1%) 3 ml 1X ONCE IJ Last administered on 08/26/19at 09:30; Start 08/26/19 at 09:15; Stop 08/26/19 at 09:16; Status DC Midazolam HCl (Versed) 5 mg 1X ONCE IV Last administered on 08/26/19at 09:30; Start 08/26/19 at 09:15; Stop 08/26/19 at 09:16; Status DC Fentanyl Citrate (Fentanyl 5ml Vial) 250 mcg 1X ONCE IV Last administered on at 09:30; Start 08/26/19 at 09:15; Stop 08/26/19 at 09:16; Status DC Bumetanide (Bumex) 2 mg DAILY IV Last administered on 09/05/19at 08:07; Start 08/26/19 at 10:00; Stop 09/05/19 at 17:15; Status DC Potassium Chloride 75 meq/ Magnesium Sulfate 15 meq/ Multivitamins 10 ml/Chromium/ Copper/Manganese/ Seleni/Zn 0.5 ml/ Insulin Human Regular 15 unit/ Total Parenteral Nutrition/Amino Acids/Dextrose/ Fat Emulsion Intravenous 1,920 ml @ 80 mls/hr TPN CONT IV Last administered on 08/26/19at 21:59; Start 08/26/19 at 22:00; Stop 08/27/19 at 21:59; Status DC Metoclopramide HCl (Reglan Vial) 10 mg PRN Q3HRS PRN IVP NAUSEA/VOMITING-3rd choice Last administered on 09/01/19at 04:25; Start 08/27/19 at 16:45 Potassium Chloride 75 meq/ Magnesium Sulfate 15 meq/ Multivitamins 10 ml/Chromium/ Copper/Manganese/ Seleni/Zn 0.5 ml/ Insulin Human Regular 15 unit/ Total Parenteral Nutrition/Amino Acids/Dextrose/ Fat Emulsion Intravenous 1,920 ml @ 80 mls/hr TPN CONT IV Last administered on 08/27/19at 22:41; Start 08/27/19 at 22:00; Stop 08/28/19 at 21:59; Status DC Magnesium Sulfate 50 ml @ 25 mls/hr 1X ONCE IV Last administered on 08/28/19at 10:44; Start 08/28/19 at 09:00; Stop 08/28/19 at 10:59; Status DC Potassium Chloride/Water 100 ml @ 100 mls/hr 1X ONCE IV Last administered on 08/28/19at 09:37; Start 08/28/19 at 09:00; Stop 08/28/19 at 09:59; Status DC Duloxetine HCl (Cymbalta) 30 mg DAILY PO Last administered on 08/29/19at 09:48; Start 08/28/19 at 14:00; Stop 08/31/19 at 10:25; Status DC Potassium Chloride 80 meq/ Magnesium Sulfate 20 meq/ Multivitamins 10 ml/Chromium/ Copper/Manganese/ Seleni/Zn 0.5 ml/ Insulin Human Regular 15 unit/ Total Parenteral Nutrition/Amino Acids/Dextrose/ Fat Emulsion Intravenous 1,920 ml @ 80 mls/hr TPN CONT IV Last administered on 08/28/19at 21:42; Start 08/28/19 at 22:00; Stop 08/29/19 at 21:59; Status DC Potassium Chloride 80 meq/ Magnesium Sulfate 20 meq/ Multivitamins 10 ml/Chromium/ Copper/Manganese/ Seleni/Zn 0.5 ml/ Insulin Human Regular 15 unit/ Total Parenteral Nutrition/Amino Acids/Dextrose/ Fat Emulsion Intravenous 1,920 ml @ 80 mls/hr TPN CONT IV Last administered on 08/29/19at 22:20; Start 08/29/19 at 22:00; Stop 08/30/19 at 21:59; Status DC Lidocaine HCl (Buffered Lidocaine 1%) 3 ml STK-MED ONCE .ROUTE ; Start 08/30/19 at 09:54; Stop 08/30/19 at 09:55; Status DC Hydromorphone HCl (Dilaudid Standard ORDNANCE ENGINEERING TECHNICIAN) 12 mg STK-MED ONCE IV ; Start 08/19/19 at 15:50; Stop 08/30/19 at 11:24; Status DC Potassium Chloride 80 meq/ Magnesium Sulfate 20 meq/ Multivitamins 10 ml/Chromium/ Copper/Manganese/ Seleni/Zn 0.5 ml/ Insulin Human Regular 15 unit/ Total Parenteral Nutrition/Amino Acids/Dextrose/ Fat Emulsion Intravenous 1,920 ml @ 80 mls/hr TPN CONT IV Last administered on 08/30/19at 21:40; Start 08/30/19 at 22:00; Stop 08/31/19 at 21:59; Status DC Lidocaine HCl (Buffered Lidocaine 1%) 6 ml 1X ONCE INJ Last administered on 08/30/19at 14:15; Start 08/30/19 at 14:15; Stop 08/30/19 at 14:16; Status DC Potassium Chloride 80 meq/ Magnesium Sulfate 20 meq/ Multivitamins 10 ml/Chromium/ Copper/Manganese/ Seleni/Zn 1 ml/ Insulin Human Regular 15 unit/ Total Parenteral Nutrition/Amino Acids/Dextrose/ Fat Emulsion Intravenous 1,920 ml @ 80 mls/hr TPN CONT IV Last administered on 08/31/19at 22:04; Start 08/31/19 at 22:00; Stop 09/01/19 at 21:59; Status DC Potassium Chloride/Water 100 ml @ 100 mls/hr 1X ONCE IV Last administered on 09/01/19at 11:34; Start 09/01/19 at 11:00; Stop 09/01/19 at 11:59; Status DC Potassium Chloride 90 meq/ Magnesium Sulfate 20 meq/ Multivitamins 10 ml/Chromium/ Copper/Manganese/ Seleni/Zn 1 ml/ Insulin Human Regular 15 unit/ Total Parenteral Nutrition/Amino Acids/Dextrose/ Fat Emulsion Intravenous 1,920 ml @ 80 mls/hr TPN CONT IV Last administered on 09/01/19at 22:57; Start 09/01/19 at 22:00; Stop 09/02/19 at 21:59; Status DC Potassium Chloride 90 meq/ Magnesium Sulfate 20 meq/ Multivitamins 10 ml/Chromium/ Copper/Manganese/ Seleni/Zn 1 ml/ Insulin Human Regular 15 unit/ Total Parenteral Nutrition/Amino Acids/Dextrose/ Fat Emulsion Intravenous 1,920 ml @ 80 mls/hr TPN CONT IV Last administered on 09/02/19at 22:48; Start 09/02/19 at 22:00; Stop 09/03/19 at 21:59; Status DC Potassium Chloride 90 meq/ Magnesium Sulfate 20 meq/ Multivitamins 10 ml/Chromium/ Copper/Manganese/ Seleni/Zn 1 ml/ Insulin Human Regular 15 unit/ Total Parenteral Nutrition/Amino Acids/Dextrose/ Fat Emulsion Intravenous 1,890 ml @ 78.75 mls/ hr TPN CONT IV Last administered on 09/03/19at 22:15; Start 09/03/19 at 22:00; Stop 09/04/19 at 21:59; Status DC Linezolid/Dextrose 300 ml @ 300 mls/hr Q12HR IV Last administered on 09/06/19at 21:08; Start 09/04/19 at 09:00; Stop 09/07/19 at 08:11; Status DC Daptomycin 450 mg/ Sodium Chloride 50 ml @ 100 mls/hr Q24H IV Last administered on 09/07/19at 09:25; Start 09/04/19 at 09:00; Stop 09/08/19 at 08: 30; Status DC Potassium Chloride 90 meq/ Magnesium Sulfate 20 meq/ Multivitamins 10 ml/Chromium/ Copper/Manganese/ Seleni/Zn 1 ml/ Insulin Human Regular 15 unit/ Total Parenteral Nutrition/Amino Acids/Dextrose/ Fat Emulsion Intravenous 1,890 ml @ 78.75 mls/ hr TPN CONT IV Last administered on 09/04/19at 21:34; Start 09/04/19 at 22:00; Stop 09/05/19 at 21:59; Status DC Lorazepam (Ativan Inj) 2 mg STK-MED ONCE .ROUTE ; Start 09/04/19 at 14:58; Stop 09/04/19 at 14:58; Status DC Metoprolol Tartrate (Lopressor Vial) 5 mg 1X ONCE IVP Last administered on 09/04/19at 15:31; Start 09/04/19 at 15:15; Stop 09/04/19 at 15:16; Status DC Lorazepam (Ativan Inj) 2 mg 1X ONCE IVP Last administered on 09/04/19at 15:30; Start 09/04/19 at 15:15; Stop 09/04/19 at 15:16; Status DC Enoxaparin Sodium (Lovenox 40mg Syringe) 40 mg Q24H SQ Last administered on 09/09/19at 18:05; Start 09/04/19 at 17:00 Lorazepam (Ativan Inj) 1 mg PRN Q4HRS PRN IVP ANXIETY / AGITATION MILD-MOD Last administered on 09/10/19at 04:21; Start 09/04/19 at 19:15 Lorazepam (Ativan Inj) 2 mg PRN Q4HRS PRN IVP ANXIETY / AGITATION SEVERE Last administered on 09/05/19at 22:20; Start 09/04/19 at 19:15 Fentanyl Citrate (Fentanyl 2ml Vial) 50 mcg PRN Q4HRS PRN IVP SEVERE PAIN Last administered on 09/07/19at 05:00; Start 09/05/19 at 13:15 Fentanyl Citrate (Fentanyl 2ml Vial) 25 mcg PRN Q4HRS PRN IVP MODERATE PAIN Last administered on 09/10/19at 10:34; Start 09/05/19 at 13:15 Potassium Chloride 90 meq/ Magnesium Sulfate 20 meq/ Multivitamins 10 ml/Chromium/ Copper/Manganese/ Seleni/Zn 1 ml/ Insulin Human Regular 15 unit/ Total Parenteral Nutrition/Amino Acids/Dextrose/ Fat Emulsion Intravenous 1,890 ml @ 78.75 mls/ hr TPN CONT IV Last administered on 09/05/19at 22:18; Start 09/05/19 at 22:00; Stop 09/06/19 at 21:59; Status DC Furosemide (Lasix) 40 mg 1X ONCE IVP Last administered on 09/05/19at 21:51; Start 09/05/19 at 21:45; Stop 09/05/19 at 21:48; Status DC Albumin Human 100 ml @ 100 mls/hr 1X PRN PRN IV SEE COMMENTS; Start 09/06/19 at 01:30 Furosemide (Lasix) 40 mg [id number] IVP Last administered on 09/10/19at 10:34; Start 09/06/19 at 14:00 Potassium Chloride 90 meq/ Magnesium Sulfate 20 meq/ Multivitamins 10 ml/Chromium/ Copper/Manganese/ Seleni/Zn 1 ml/ Insulin Human Regular 15 unit/ Total Parenteral Nutrition/Amino Acids/Dextrose/ Fat Emulsion Intravenous 1,800 ml @ 75 mls/hr TPN CONT IV Last administered on 09/06/19at 22:31; Start 09/06/19 at 22:00; Stop 09/07/19 at 21:59; Status DC Potassium Chloride 90 meq/ Magnesium Sulfate 20 meq/ Multivitamins 10 ml/C hromium/ Copper/Manganese/ Seleni/Zn 1 ml/ Insulin Human Regular 15 unit/ Total Parenteral Nutrition/Amino Acids/Dextrose/ Fat Emulsion Intravenous 1,800 ml @ 75 mls/hr TPN CONT IV Last administered on 09/07/19at 22:28; Start 09/07/19 at 22:00; Stop 09/08/19 at 21:59; Status DC Potassium Chloride 110 meq/ Magnesium Sulfate 20 meq/ Multivitamins 10 ml/Chromium/ Copper/Manganese/ Seleni/Zn 1 ml/ Insulin Human Regular 15 unit/ Total Parenteral Nutrition/Amino Acids/Dextrose/ Fat Emulsion Intravenous 1,800 ml @ 75 mls/hr TPN CONT IV Last administered on 09/08/19at 22:01; Start 09/08/19 at 22:00; Stop 09/09/19 at 21:59; Status DC Saliva Substitute (Biotene Moisturizing Mouth) 2 spray PRN Q15MIN PRN PO DRY MOUTH; Start 09/08/19 at 11:00 Potassium Chloride 110 meq/ Magnesium Sulfate 20 meq/ Multivitamins 10 ml/Chromium/ Copper/Manganese/ Seleni/Zn 1 ml/ Insulin Human Regular 15 unit/ Total Parenteral Nutrition/Amino Acids/Dextrose/ Fat Emulsion Intravenous 1,800 ml @ 75 mls/hr TPN CONT IV Last administered on 09/09/19at 22:21; Start 09/09/19 at 22:00; Stop 09/10/19 at 21:59 Potassium Chloride 110 meq/ Magnesium Sulfate 20 meq/ Multivitamins 10 ml/Chromium/ Copper/Manganese/ Seleni/Zn 1 ml/ Insulin Human Regular 15 unit/ Total Parenteral Nutrition/Amino Acids/Dextrose/ Fat Emulsion Intravenous 1,800 ml @ 75 mls/hr TPN CONT IV ; Start 09/10/19 at 22:00; Stop 09/11/19 at 21:59 Active Scripts Active Reported Bisoprolol Fumarate 5 Mg Tablet 10 Mg PO DAILY Vitals/I & O Vital Sign - Last 24 Hours 09/09/19 09/09/19 09/09/19 09/09/19 14:00 14:24 15:00 15:00 Pulse 103 99 Resp 26 30 24 24 B/P (MAP) 149/80 (103) 149/82 (104) Pulse Ox 100 99 100 99 O2 Delivery Tracheal Collar Tracheal Collar Tracheal Collar Tracheal Collar O2 Flow Rate 8.0 8.0 8.0 8.0 09/09/19 09/09/19 09/09/19 09/09/19 15:51 16:00 17:00 18:00 Temp 99.0 99.0 Pulse 92 122 105 Resp 22 32 28 B/P (MAP) 126/63 (84) 129/78 (95) 136/79 (98) Pulse Ox 100 100 100 O2 Delivery Trach Collar Tracheal Collar Tracheal Collar Tracheal Collar O2 Flow Rate 8.0 8.0 8.0 8.0 09/09/19 5 5 5 18:05 18:38 19:00 20:00 Pulse 100 Resp 36 28 26 B/P (MAP) 126/67 (86) Pulse Ox 99 99 100 O2 Delivery Tracheal Collar Tracheal Collar Tracheal Collar Trach Collar O2 Flow Rate 8.0 8.0 8.0 8.0 09/09/19 09/09/19 09/09/19 09/09/19 20:00 21:00 22:00 22:22 Temp 98.7 98.7 Pulse 111 110 83 Resp 23 21 23 26 B/P (MAP) 117/86 (96) 123/65 (84) 104/71 (82) Pulse Ox 100 98 99 100 O2 Delivery Tracheal Collar Tracheal Collar Tracheal Collar Tracheal Collar O2 Flow Rate 8.0 8.0 8.0 09/09/19 09/09/19 5 5 22:52 23:00 00:00 00:00 Temp 97.9 97.9 Pulse 94 92 Resp 20 21 20 B/P (MAP) 122/77 (92) 103/59 (74) Pulse Ox 100 98 100 O2 Delivery Tracheal Collar Tracheal Collar Trach Collar Tracheal Collar O2 Flow Rate 8.0 8.0 8.0 8.0 09/10/19 5/ 5// 5 01:00 02:00 02:40 03:00 Pulse 99 93 88 Resp 24 20 23 23 B/P (MAP) 100/57 (71) 104/73 (83) 107/65 (79) Pulse Ox 99 99 99 98 O2 Delivery Tracheal Collar Tracheal Collar Tracheal Collar Tracheal Collar O2 Flow Rate 8.0 8.0 8.0 09/09/ 5/ 5// 5 03:10 04:00 04:00 05:00 Temp 98.3 98.3 Pulse 87 88 Resp 25 21 28 B/P (MAP) 151/75 (100) 87/49 (62) Pulse Ox 99 100 100 O2 Delivery Tracheal Collar Tracheal Collar Trach Collar Tracheal Collar O2 Flow Rate 8.0 8.0 8.0 09/10/19 09/10/19 09/10/19 09/10/19 06:00 07:00 08:00 08:00 Temp 98.5 98.5 Pulse 78 74 76 Resp 17 B/P (MAP) 90/61 (71) 102/60 (74) 108/58 (75) Pulse Ox 100 99 98 O2 Delivery Tracheal Collar Tracheal Collar Tracheal Collar Trach Collar O2 Flow Rate 8.0 8.0 8.0 8.0 09/10/19 09/10/19 09/10/19 09/10/19 09:00 10:00 10:34 11:00 Pulse 80 91 108 Resp B/P (MAP) 111/62 (78) 115/68 (84) 100/63 (75) Pulse Ox 96 99 98 97 O2 Delivery Tracheal Collar Tracheal Collar Tracheal Collar Tracheal Collar O2 Flow Rate 8.0 8.0 8.0 09/10/19 09/10/19 11:04 12:00 Resp 21 Pulse Ox 98 O2 Delivery Tracheal Collar Trach Collar O2 Flow Rate 8.0 8.0 Intake and Output 09/09/19 09/09/19 09/10/19 15:00 23:00 07:00 Intake Total 265 ml 990.26 ml 1663 ml Output Total 1625 ml 1040 ml 375 ml Balance -1360 ml -49.74 ml 1288 ml Hemodynamically unstable?: No Is patient in severe pain?: No Is NPO status required?: Yes GREG HERRERA MD September 10, 2019 13:46
[2019-09-10] MEDS: ENOXAPARIN 40 MG/0.4 ML SYRINGE. SQ SCH (17:50)
--- NOTE | 2019-09-10 18:48 | NUR ---
Patient taken to shower, sat in shower chair. Cleaned with PT/OT. Patient used walker to ambulate to and from room. Patient's daughter came in room and visited for ~1hr. Patient taken outside in recliner, sat outside for 30 min, [place]. Patient is back in bed, asleep at this time. Report given to Sherri LE.
[2019-09-10] MEDS ORDERED: TOTAL PARENTERAL NUTRITION IV SCH ×8 (22:00)
[2019-09-10] MEDS ORDERED: DEXTROSE 70% IV SCH ×8 (22:00)
[2019-09-10] MEDS ORDERED: AMINO ACID IV SCH ×8 (22:00)
[2019-09-10] MEDS ORDERED: [UNRECOGNIZED DRUG - OTHER] IV SCH ×8 (22:00)
[2019-09-11] VITALS (24 sets, daily range): BP systolic 89–180; BP diastolic 48–111
[2019-09-11] MEDS: DEXMEDETOMIDINE 400 MCG in IV NORMAL SALINE 100ML 96 ML IV PRN ×3 (03:33→23:35)
[2019-09-11] MEDS: ONDANSETRON PF 4 MG/2 ML VIAL. IV PRN (04:36)
[2019-09-11] MEDS: INSULIN LISPRO 300 UNITS/3 ML VIAL. SQ SCH ×4 (05:48→23:42)
[2019-09-11] MEDS: fentaNYL PF VIAL 100 MCG/2 ML VIAL IVP PRN ×4 (06:36→20:38)
--- NOTE | 2019-09-11 08:34 | PDOC ---
Infectious Disease Note Subjective Subjective Trach shield, FiO2 33% No fevers last 24 hrs Vital Sign Vital Signs Vital Signs Date Time Temp Pulse Resp B/P (MAP) Pulse Ox O2 Delivery O2 Flow Rate FiO2 09/11/19 08:00 92 23 96/54 (68) 98 Tracheal Collar 8.0 09/11/19 04:00 97.5 97.5 Physical Exam PHYSICAL EXAM GENERAL: Propped up in bed, resting quietly HEENT: Oral cavity clear, NGT NECK: Trach shield LUNGS: Clear anteriorly, no accessory muscle use HEART: S1, S2, regular ABDOMEN: mod distention, hypoactive BS, tender, + drains x 3 : Lind (08/01) EXTREMITIES: Generalized edema, improving, no cyanosis, SCDs bilaterally SKIN: Warm and dry. No generalized rash. STATION EXAMINER: Very weak RUE-PICC (08/17) clean Labs Lab Laboratory Tests Test 09/10/19 17:53 09/10/19 23:53 09/11/19 05:46 Glucose (Fingerstick) 140 mg/dL (70-99) 135 mg/dL (70-99) 150 mg/dL (70-99) Micro 08/21. BLOOD CULTURE Preliminary NO GROWTH AFTER 5 DAYS 08/14. abd fluid AEROBIC RES 1 Final Organism Identification, Yeast Kiana parapsilosis 08/23. abd fluid ANAEROBIC-AEROBIC CULTURE PENDING Objective Assessment Fever intermittent could be from underlying pancreatitis - better ? Ileus with vomiting Abd distention - U/S and CT reviewed s/p 0.4 L of opaque, debris-containing ascites was removed 08/23 Acute pancreatitis with persistent necrosis - 08/14 status post KAYLIN drain placement + C paropsilosis; 08/23 + yeast & high amylase; s/p additional drains on 08/25 Anemia - S/p PRBCs Cholelithiasis with thickening of the gallbladder wall. Leucocytosis improved JUANA, hyperkalemia, Metabolic acidosis off dialysis Acute hypoxic resp failure ,bilateral pleural effusion and atelectasis hypocalcemia Prediabetes HTN s/p trach Plan Plan of Care cont Micafungin, 08/21 Off dapto/zyvox/merrem Maintain aspiration precaution Supportive care Critically ill Attending Co-Sign The patient was seen and examined at the bedside. The chart was reviewed. The case was discussed with PRESSURE WASHER. Agree with the plan of care. FRANCA HOBSON APRN September 11, 2019 08:34 YUNIOR JONES MD September 11, 2019 12:34
[2019-09-11] MEDS: TPN PER PHARMACY MC PRN ×2 (08:47→12:28)
[2019-09-11] MEDS: POLYVINYL ALCOHOL 1.4% OPHTH SOLUTION 15ML BOTTLE. OU PRN (11:15)
[2019-09-11] MEDS: PANTOPRAZOLE IV PUSH 40 MG VIAL. IVP SCH (11:15)
[2019-09-11] MEDS: FUROSEMIDE 40 MG/4 ML VIAL. IVP SCH ×2 (11:16→16:41)
--- NOTE | 2019-09-11 11:31 | PDOC ---
PROGRESS NOTES Chief Complaint Chief Complaint Acute hypoxic Respiratory failure requiring mechanical ventilation (now extubated for several days but still with tracheostomy) Tracheostomy bilateral pleural effusions/pulm edema Sepsis Severe Acute gallstone pancreatitis (not a surgical candidate at this time) with necrosis Acute kidney failure now requiring dialysis Salpingitis Gallstones (Calculus of gallbladder with acute cholecystitis without obstruction) HTN Leukocytosis Hypoxia Uterine fibroid Intractable pain Intractable nausea Covid 19 negative. Acute on chronic anemia EEG: No seizure activityFever - better currently - intermittent could be from underlying pancreatitis blood cults 08/21 - neg so far ? Ileus with vomiting Abd distention - U/S and CT reviewed s/p 0.4 L of opaque, debris-containing ascites was removed 08/23 Acute pancreatitis with persistent necrosis - 08/14 status post KAYLIN drain placement + C paropsilosis. s/p additional drains 08/25 Anemia - S/p PRBCs Cholelithiasis with thickening of the gallbladder wall. Leucocytosis improving JUANA, hyperkalemia, Metabolic acidosis off dialysis Acute hypoxic resp failure ,bilateral pleural effusion and atelectasis hypocalcemia Prediabetes HTN s/p trach ESRD on HD Hyperglycemia History of Present Illness History of Present Illness 09/10,. feels well, has been out of room in wheelchair no complaint, still weak, some with not wanting to wear her valve on trach cont other, may be able to work with speech tomorrow, juan ramon [place] to try, 09/09, anxiety is up today, she dislikes the valve still, shower and outside today . 09/08 she doesnt want to wear her passy-fantasma valve, discussed str and plan with her. speech following, needs swallow study, but needs to wear her valve longer, cont current able to walk some, walker 09/07 stronger, better, we discussed better oral care she would like to try swallow study, wants to try to eat, speech is following 09/07/2019 She remains in the ICU sitting up and working with OT, getting better if limit pain meds, may do better off the vent, Nurses trying to suction her, that is also improved, Chart reviewed 09/06/2019 Patient seen and examined in the ICU She had an episode yesterday of tachycardia and severe agitation we gave her some Ativan After that she seemed to have stroke symptoms but now that the Ativan has wore off her stroke symptoms have resolved She is on IV meropenem and daptomycin and micafungin Chart reviewed Discussed with RN Patient is still critically ill BRIEF OPERATIVE NOTE Pre-Op Diagnosis Pancreatitis with pseudocysts, suspected infection Post-Op Diagnosis same Procedure Performed CT abdominal Drains x 3 Surgeon Tesfaye Anesthesia Type: Conscious Sedation Findings 3 abdominal drains, 14F, with turbid pancreatic fluid and necrotic debris in each. Complications No immediate 08/26: Patient today somewhat restless and having bilious secretions from ET tube, imaging studies ordered, discussed with senior sustainability consultant. Pretty poor prognosis, hopefully is not a fistula, poor surgical candidate. 08/27: Imaging with no acute events, she seems more stable today compared to yesterday. Encouraged as much activity as possible patient at high risk for severe depression. Vitals Vitals Vital Signs Date Time Temp Pulse Resp B/P (MAP) Pulse Ox O2 Delivery O2 Flow Rate FiO2 09/11/19 11:16 22 99 Tracheal Collar 8.0 09/11/19 08:00 92 96/54 (68) 09/11/19 04:00 97.5 97.5 Physical Exam Physical Exam GENERAL: Propped up in bed, resting quietly HEENT: Oral cavity clear, NGT NECK: Trach shield LUNGS: Clear anteriorly, no accessory muscle use HEART: S1, S2, regular ABDOMEN: mod distention, hypoactive BS, tender, + drains x 3 : Lind (08/01) EXTREMITIES: Generalized edema, improving, no cyanosis, SCDs bilaterally SKIN: Warm and dry. No generalized rash. STAVE AND BOLT EQUALIZER: Very weak RUE-PICC (08/17) clean General: Alert, Cooperative, No acute distress Heart: Regular rate, Normal S1, Normal S2, No murmurs, Gallops Lungs: Wheezing, Other (decrease bs) Abdomen: Soft, No tenderness Extremities: No clubbing, No cyanosis, No edema, Normal pulses, No tenderness/swelling Skin: Other (warm, dry) Labs LABS Laboratory Tests Test 09/10/19 17:53 09/10/19 23:53 09/11/19 05:46 Glucose (Fingerstick) 140 mg/dL (70-99) 135 mg/dL (70-99) 150 mg/dL (70-99) Assessment and Plan Assessmemt and Plan Problems Medical Problems: (1) Acute pancreatitis Status: Acute (2) Cholelithiasis Status: Acute Comment Review of Relevant I have reviewed the following items kolby (where applicable) has been applied. Labs Laboratory Tests Test 09/09/19 18:00 09/10/19 00:29 09/10/19 06:06 09/10/19 17:53 Glucose (Fingerstick) 155 mg/dL (70-99) 144 mg/dL (70-99) 163 mg/dL (70-99) 140 mg/dL (70-99) Test 09/10/19 23:53 09/11/19 05:46 Glucose (Fingerstick) 135 mg/dL (70-99) 150 mg/dL (70-99) Laboratory Tests Test 09/10/19 17:53 09/10/19 23:53 09/11/19 05:46 Glucose (Fingerstick) 140 mg/dL (70-99) 135 mg/dL (70-99) 150 mg/dL (70-99) Microbiology 09/04/19 Blood Culture - Final, Complete NO GROWTH AFTER 5 DAYS 08/24/19 Fungal Culture - Final, Complete 08/24/19 Fungal Culture Result 1 - Final, Complete 08/18/19 Aerobic Culture - Final, Complete 08/18/19 Aerobic Culture Result 1 (ALEXANDRA) - Final, Complete 08/18/19 Gram Stain - Final, Complete 08/18/19 Gram Stain Result 1 (ALEXANDRA) - Final, Complete 08/18/19 Gram Stain Result 2 (ALEXANDRA) - Final, Complete 07/31/19 Urine Culture - Final, Complete 07/31/19 Urine Culture Result 1 (ALEXANDRA) - Final, Complete Medications Current Medications Sodium Chloride 1,000 ml @ 1,000 mls/hr Q1H IV Last administered on 07/04/19at 03:00; Start 07/04/19 at 03:00; Stop 07/04/19 at 03:59; Status DC Ondansetron HCl (Zofran) 4 mg 1X ONCE IVP Last administered on 07/04/19at 03:27; Start 07/04/19 at 03:00; Stop 07/04/19 at 03:01; Status DC Morphine Sulfate (Morphine Sulfate) 4 mg 1X ONCE IV ; Start 07/04/19 at 03:00; Stop 07/04/19 at 03:01; Status Cancel Ketorolac Tromethamine (Toradol 30mg Vial) 30 mg 1X ONCE IV Last administered on 07/04/19at 02:54; Start 07/04/19 at 03:00; Stop 07/04/19 at 03:01; Status DC Fentanyl Citrate (Fentanyl 2ml Vial) 25 mcg 1X ONCE IVP Last administered on 07/04/19at 03:23; Start 07/04/19 at 03:30; Stop 07/04/19 at 03:31; Status DC Fentanyl Citrate (Fentanyl 2ml Vial) 100 mcg STK-MED ONCE .ROUTE ; Start 07/04/19 at 03:18; Stop 07/04/19 at 03:18; Status DC Iohexol (Omnipaque 350 Mg/ml) 90 ml 1X ONCE IV Last administered on 07/04/19at 03:25; Start 07/04/19 at 03:30; Stop 07/04/19 at 03:31; Status DC Info (CONTRAST GIVEN -- Rx MONITORING) 1 each PRN DAILY PRN MC SEE COMMENTS; Start 07/04/19 at 03:30; Stop 07/06/19 at 03:29; Status DC Hydromorphone HCl (Dilaudid) 0.5 mg 1X ONCE IV Last administered on 07/04/19at 03:55; Start 07/04/19 at 04:30; Stop 07/04/19 at 04:32; Status DC Ondansetron HCl (Zofran) 4 mg PRN Q8HRS PRN IV NAUSEA/VOMITING 1ST CHOICE; Start 07/04/19 at 05:00; Stop 07/04/19 at 09:27; Status DC Morphine Sulfate (Morphine Sulfate) 2 mg PRN Q2HR PRN IV SEVERE PAIN 7-10 Last administered on 07/05/19at 12:26; Start 07/04/19 at 05:00; Stop 07/05/19 at 14:15; Status DC Sodium Chloride 1,000 ml @ 125 mls/hr Q8H IV Last administered on 07/04/19at 20:56; Start 07/04/19 at 05:00; Stop 07/05/19 at 04:59; Status DC Hydromorphone HCl (Dilaudid) 0.5 mg PRN Q3HRS PRN IV SEVERE PAIN 7-10 Last administered on 07/05/19at 10:06; Start 07/04/19 at 05:00; Stop 07/05/19 at 12:01; Status DC Piperacillin Sod/ Tazobactam Sod 4.5 gm/Sodium Chloride 100 ml @ 200 mls/hr 1X ONCE IV Last administered on 07/04/19at 05:44; Start 07/04/19 at 06:00; Stop 07/04/19 at 06:29; Status DC Ondansetron HCl (Zofran) 4 mg PRN Q4HRS PRN IV NAUSEA/VOMITING 1ST CHOICE Last administered on 09/11/19at 04:36; Start 07/04/19 at 09:30 Insulin Human Lispro (HumaLOG) 0-9 UNITS Q6HRS SQ Last administered on 09/10/19at 06:08; Start 07/04/19 at 09:30 Dextrose (Dextrose 50%-Water Syringe) 12.5 gm PRN Q15MIN PRN IV SEE COMMENTS; Start 07/04/19 at 09:30 Pantoprazole Sodium (PROTONIX VIAL for IV PUSH) 40 mg DAILYAC IVP Last administered on 09/11/19at 11:15; Start 07/04/19 at 11:30 Prochlorperazine Edisylate (Compazine) 10 mg PRN Q6HRS PRN IV NAUSEA/VOMITING, 2nd CHOICE Last administered on 09/01/19at 06:11; Start 07/04/19 at 17:45 Atenolol (Tenormin) 100 mg DAILY PO ; Start 07/05/19 at 09:00; Stop 07/04/19 at 20:08; Status DC Metoprolol Tartrate (Lopressor Vial) 2.5 mg Q6HRS IVP Last administered on 07/05/19at 05:51; Start 07/04/19 at 20:15; Stop 07/05/19 at 10:02; Status DC Metoprolol Tartrate (Lopressor Vial) 5 mg Q6HRS IVP Last administered on 07/14/19at 00:12; Start 07/05/19 at 10:15; Stop 07/16/19 at 08:48; Status DC Hydromorphone HCl (Dilaudid) 1 mg PRN Q3HRS PRN IV SEVERE PAIN 7-10 Last administered on 07/11/19at 05:13; Start 07/05/19 at 12:00; Stop 07/19/19 at 00:25; Status DC Lidocaine HCl (Buffered Lidocaine 1%) 3 ml STK-MED ONCE .ROUTE ; Start 07/05/19 at 12:55; Stop 07/05/19 at 12:56; Status DC Albumin Human 500 ml @ 125 mls/hr 1X ONCE IV Last administered on 07/05/19at 14:33; Start 07/05/19 at 14:30; Stop 07/05/19 at 18:32; Status DC Norepinephrine Bitartrate 8 mg/ Dextrose 258 ml @ 17.299 mls/ hr CONT PRN IV PER PROTOCOL Last administered on 08/02/19at 12:48; Start 07/05/19 at 15:30; Stop 08/05/19 at 09:19; Status DC Sodium Chloride 1,000 ml @ 125 mls/hr Q8H IV Last administered on 07/05/19at 21:04; Start 07/05/19 at 16:00; Stop 07/06/19 at 02:42; Status DC Albumin Human 500 ml @ 125 mls/hr PRN BID PRN IV After every 2L NSS & BP < 90mm Last administered on 07/20/19at 14:21; Start 07/05/19 at 16:00 Iohexol (Omnipaque 300 Mg/ml) 60 ml 1X ONCE IV Last administered on 07/05/19at 17:20; Start 07/05/19 at 17:00; Stop 07/05/19 at 17:01; Status DC Info (CONTRAST GIVEN -- Rx MONITORING) 1 each PRN DAILY PRN MC SEE COMMENTS; Start 07/05/19 at 17:00; Stop 07/07/19 at 16:59; Status DC Meropenem 1 gm/ Sodium Chloride 100 ml @ 200 mls/hr Q8HRS IV Last administered on 07/06/19at 05:45; Start 07/05/19 at 20:00; Stop 07/06/19 at 08:48; Status DC Furosemide (Lasix) 40 mg 1X ONCE IVP Last administered on 07/05/19at 22:12; Start 07/05/19 at 22:30; Stop 07/05/19 at 22:31; Status DC Calcium Chloride 1000 mg/Sodium Chloride 110 ml @ 220 mls/hr 1X ONCE IV Last administered on 07/05/19at 22:11; Start 07/05/19 at 22:30; Stop 07/05/19 at 22:59; Status DC Albuterol Sulfate (Ventolin Neb Soln) 2.5 mg 1X ONCE NEB Last administered on 07/06/19at 00:56; Start 07/05/19 at 22:30; Stop 07/05/19 at 22:31; Status DC Insulin Human Regular (HumuLIN R VIAL) 5 unit 1X ONCE IV Last administered on 07/05/19at 22:14; Start 07/05/19 at 22:30; Stop 07/05/19 at 22:31; Status DC Magnesium Sulfate 50 ml @ 25 mls/hr 1X ONCE IV Last administered on 07/06/19at 02:57; Start 07/06/19 at 03:00; Stop 07/06/19 at 04:59; Status DC Calcium Gluconate 1000 mg/Sodium Chloride 110 ml @ 220 mls/hr 1X ONCE IV Last administered on 07/06/19at 02:46; Start 07/06/19 at 03:00; Stop 07/06/19 at 03:29; Status DC Sodium Chloride 1,000 ml @ 200 mls/hr Q5H IV Last administered on 07/06/19at 02:46; Start 07/06/19 at 03:00; Stop 07/06/19 at 10:21; Status DC Calcium Gluconate 1000 mg/Sodium Chloride 110 ml @ 220 mls/hr 1X ONCE IV Last administered on 07/06/19at 03:21; Start 07/06/19 at 03:30; Stop 07/06/19 at 03:59; Status DC Sodium Bicarbonate 50 meq/Sodium Chloride 1,050 ml @ 75 mls/hr Q14H IV Last administered on 07/10/19at 21:10; Start 07/06/19 at 07:30; Stop 07/11/19 at 10:28; Status DC Calcium Gluconate 2000 mg/Sodium Chloride 120 ml @ 220 mls/hr 1X ONCE IV Last administered on 07/06/19at 09:05; Start 07/06/19 at 07:30; Stop 07/06/19 at 08:02 ; Status DC Lidocaine HCl (Xylocaine-Mpf 1% 2ml Vial) 2 ml STK-MED ONCE .ROUTE ; Start 07/06/19 at 08:47; Stop 07/06/19 at 08:47; Status DC Meropenem 500 mg/ Sodium Chloride 50 ml @ 100 mls/hr Q12HR IV Last administered on 07/11/19at 21:01; Start 07/06/19 at 18:00; Stop 07/12/19 at 07:58; Status DC Lidocaine HCl (Buffered Lidocaine 1%) 3 ml STK-MED ONCE .ROUTE ; Start 07/06/19 at 09:46; Stop 07/06/19 at 09:46; Status DC Lidocaine HCl (Buffered Lidocaine 1%) 6 ml 1X ONCE INJ Last administered on 07/06/19at 10:26; Start 07/06/19 at 10:15; Stop 07/06/19 at 10:16; Status DC Info (Tpn Per Pharmacy) 1 each PRN DAILY PRN MC SEE COMMENTS Last administered on 09/11/19at 08:47; Start 07/06/19 at 12:00 Sodium Chloride 1,000 ml @ 1,000 mls/hr Q1H PRN IV hypotension; Start 07/06/19 at 12:07; Stop 07/06/19 at 18:06; Status DC Diphenhydramine HCl (Benadryl) 25 mg 1X PRN PRN IV ITCHING; Start 07/06/19 at 12:15; Stop 07/07/19 at 12:14; Status DC Diphenhydramine HCl (Benadryl) 25 mg 1X PRN PRN IV ITCHING; Start 07/06/19 at 12:15; Stop 07/07/19 at 12:14; Status DC Sodium Chloride 1,000 ml @ 400 mls/hr Q2H30M PRN IV PATENCY; Start 07/06/19 at 12:07; Stop 07/07/19 at 00:06; Status DC Info (PHARMACY MONITORING -- do not chart) 1 each PRN DAILY PRN MC SEE COMMENTS; Start 07/06/19 at 12:15; Stop 07/08/19 at 08:13; Status DC Sodium Chloride 90 meq/Calcium Gluconate 10 meq/ Multivitamins 10 ml/Chromium/ Copper/Manganese/ Seleni/Zn 1 ml/ Total Parenteral Nutrition/Amino Acids/Dextrose/ Fat Emulsion Intravenous 55.005 ml @ 2.292 mls/hr TPN CONT IV ; Start 07/06/19 at 22:00; Stop 07/06/19 at 12:33; Status DC Info (Tpn Per Pharmacy) 1 each PRN DAILY PRN MC SEE COMMENTS; Start 07/06/19 at 12:30; Status UNV Sodium Chloride 90 meq/Calcium Gluconate 10 meq/ Multivitamins 10 ml/Chromium/ Copper/Manganese/ Seleni/Zn 0.5 ml/ Total Parenteral Nutrition/Amino Acids/Dextrose/ Fat Emulsion Intravenous 1,512 ml @ 63 mls/hr TPN CONT IV Last administered on 07/06/19at 22:06; Start 07/06/19 at 22:00; Stop 07/07/19 at 21:59; Status DC Calcium Carbonate/ Glycine (Tums) 500 mg PRN AFTMEALHC PRN PO INDIGESTION; Start 07/06/19 at 17:45; Stop 08/31/19 at 10:25; Status DC Calcium Gluconate (Calcium Gluconate) 2,000 mg 1X ONCE IVP Last administered on 07/07/19at 02:19; Start 07/07/19 at 02:15; Stop 07/07/19 at 02:16; Status DC Calcium Chloride 3000 mg/Sodium Chloride 1,030 ml @ 50 mls/hr [id number] IV Last administered on 07/09/19at 02:17; Start 07/07/19 at 08:00; Stop 07/09/19 at 15:23; Status DC Lorazepam (Ativan Inj) 1 mg PRN Q4HRS PRN IVP ANXIETY / AGITATION, 2nd choic Last administered on 08/05/19at 03:51; Start 07/07/19 at 09:00; Stop 08/05/19 at 09:19; Status DC Sodium Chloride 1,000 ml @ 1,000 mls/hr Q1H PRN IV hypotension; Start 07/07/19 at 08:56; Stop 07/07/19 at 14:55; Status DC Albumin Human 200 ml @ 200 mls/hr 1X PRN PRN IV Hypotension; Start 07/07/19 at 09:00; Stop 07/07/19 at 14:59; Status DC Diphenhydramine HCl (Benadryl) 25 mg 1X PRN PRN IV ITCHING; Start 07/07/19 at 09:00; Stop 07/08/19 at 08:59; Status DC Diphenhydramine HCl (Benadryl) 25 mg 1X PRN PRN IV ITCHING; Start 07/07/19 at 09:00; Stop 07/08/19 at 08:59; Status DC Sodium Chloride 1,000 ml @ 400 mls/hr Q2H30M PRN IV PATENCY; Start 07/07/19 at 08:56; Stop 07/07/19 at 20:55; Status DC Info (PHARMACY MONITORING -- do not chart) 1 each PRN DAILY PRN MC SEE COMMENTS; Start 07/07/19 at 09:00; Status UNV Info (PHARMACY MONITORING -- do not chart) 1 each PRN DAILY PRN MC SEE COMMENTS; Start 07/07/19 at 09:00; Stop 07/08/19 at 08:13; Status DC Digoxin (Lanoxin) 500 mcg 1X ONCE IV Last administered on 07/07/19at 10:04; Start 07/07/19 at 10:00; Stop 07/07/19 at 10:01; Status DC Digoxin (Lanoxin) 125 mcg 1X ONCE IV Last administered on 07/07/19at 17:10; Start 07/07/19 at 18:00; Stop 07/07/19 at 18:01; Status DC Magnesium Sulfate 100 ml @ 25 mls/hr 1X ONCE IV Last administered on 07/07/19at 12:48; Start 07/07/19 at 13:00; Stop 07/07/19 at 16:59; Status DC Sodium Chloride 90 meq/Magnesium Sulfate 10 meq/ Calcium Gluconate 20 meq/ Multivitamins 10 ml/Chromium/ Copper/Manganese/ Seleni/Zn 0.5 ml/ Total Parenteral Nutrition/Amino Acids/Dextrose/ Fat Emulsion Intravenous 1,512 ml @ 63 mls/hr TPN CONT IV Last administered on 07/07/19at 22:25; Start 07/07/19 at 22:00; Stop 07/08/19 at 21:59; Status DC Sodium Chloride 1,000 ml @ 1,000 mls/hr Q1H PRN IV hypotension; Start 07/08/19 at 08:05; Stop 07/08/19 at 14:04; Status DC Albumin Human 200 ml @ 200 mls/hr 1X ONCE IV Last administered on 07/08/19at 08:57; Start 07/08/19 at 08:15; Stop 07/08/19 at 09:14; Status DC Diphenhydramine HCl (Benadryl) 25 mg 1X PRN PRN IV ITCHING; Start 07/08/19 at 08:15; Stop 07/09/19 at 08:14; Status DC Diphenhydramine HCl (Benadryl) 25 mg 1X PRN PRN IV ITCHING; Start 07/08/19 at 08:15; Stop 07/09/19 at 08:14; Status DC Sodium Chloride 1,000 ml @ 400 mls/hr Q2H30M PRN IV PATENCY; Start 07/08/19 at 08:05; Stop 07/08/19 at 20:04; Status DC Info (PHARMACY MONITORING -- do not chart) 1 each PRN DAILY PRN MC SEE COMMENTS; Start 07/08/19 at 08:15; Stop 07/12/19 at 07:57; Status DC Sodium Chloride 90 meq/Potassium Chloride 15 meq/ Potassium Phosphate 10 mmol/ Magnesium Sulfate 10 meq/Calcium Gluconate 20 meq/ Multivitamins 10 ml/Chromium/ Copper/Manganese/ Seleni/Zn 0.5 ml/ Total Parenteral Nutrition/Amino Acids/Dextrose/ Fat Emulsion Intravenous 1,512 ml @ 63 mls/hr TPN CONT IV Last administered on 07/08/19at 21:01; Start 07/08/19 at 22:00; Stop 07/09/19 at 21:59; Status DC Potassium Chloride/Water 100 ml @ 100 mls/hr 1X ONCE IV Last administered on 07/08/19at 14:09; Start 07/08/19 at 14:00; Stop 07/08/19 at 14:59; Status DC Benzocaine (Hurricaine One) 1 spray 1X ONCE MM Last administered on 07/08/19at 16:38; Start 07/08/19 at 14:30; Stop 07/08/19 at 14:31; Status DC Lidocaine HCl (Glydo (Lidocaine) Jelly) 1 ramu 1X ONCE MM Last administered on 07/08/19at 16:38; Start 07/08/19 at 14:30; Stop 07/08/19 at 14:31; Status DC Linezolid/Dextrose 300 ml @ 300 mls/hr Q12HR IV Last administered on 07/14/19at 21:04; Start 07/08/19 at 20:00; Stop 07/15/19 at 07:50; Status DC Acetaminophen (Tylenol) 650 mg PRN Q6HRS PRN PO MILD PAIN / TEMP; Start 07/09/19 at 03:30; Stop 07/09/19 at 03:36; Status DC Acetaminophen (Tylenol) 650 mg PRN Q6HRS PRN PEG MILD PAIN / TEMP Last administered on 08/04/19at 19:56; Start 07/09/19 at 03:36; Stop 08/31/19 at 10:25; Status DC Sodium Chloride 1,000 ml @ 1,000 mls/hr Q1H PRN IV hypotension; Start 07/09/19 at 07:50; Stop 07/09/19 at 13:49; Status DC Albumin Human 200 ml @ 200 mls/hr 1X PRN PRN IV Hypotension; Start 07/09/19 at 08:00; Stop 07/09/19 at 13:59; Status DC Sodium Chloride (Normal Saline Flush) 10 ml 1X PRN PRN IV AP catheter pack; Start 07/09/19 at 08:00; Stop 07/10/19 at 07:59; Status DC Sodium Chloride (Normal Saline Flush) 10 ml 1X PRN PRN IV READING COACH catheter pack; Start 07/09/19 at 08:00; Stop 07/10/19 at 07:59; Status DC Sodium Chloride 1,000 ml @ 400 mls/hr Q2H30M PRN IV PATENCY; Start 07/09/19 at 07:50; Stop 07/09/19 at 19:49; Status DC Info (PHARMACY MONITORING -- do not chart) 1 each PRN DAILY PRN MC SEE COMMENTS; Start 07/09/19 at 08:00; Status UNV Info (PHARMACY MONITORING -- do not chart) 1 each PRN DAILY PRN MC SEE COMMENTS; Start 07/09/19 at 08:00; Stop 07/11/19 at 08:25; Status DC Sodium Chloride 90 meq/Potassium Chloride 15 meq/ Potassium Phosphate 10 mmol/ Magnesium Sulfate 10 meq/Calcium Gluconate 20 meq/ Multivitamins 10 ml/Chromium/ Copper/Manganese/ Seleni/Zn 0.5 ml/ Total Parenteral Nutrition/Amino Acids/Dextrose/ Fat Emulsion Intravenous 1,512 ml @ 63 mls/hr TPN CONT IV Last administered on 07/09/19at 20:57; Start 07/09/19 at 22:00; Stop 07/10/19 at 21:59; Status DC Sodium Chloride 90 meq/Potassium Chloride 15 meq/ Potassium Phosphate 15 mmol/ Magnesium Sulfate 10 meq/Calcium Gluconate 20 meq/ Multivitamins 10 ml/Chromium/ Copper/Manganese/ Seleni/Zn 0.5 ml/ Total Parenteral Nutrition/Amino Acids/Dextrose/ Fat Emulsion Intravenous 1,512 ml @ 63 mls/hr TPN CONT IV ; Start 07/10/19 at 22:00; Stop 07/10/19 at 14:16; Status DC Sodium Chloride 90 meq/Potassium Chloride 15 meq/ Potassium Phosphate 15 mmol/ Magnesium Sulfate 10 meq/Calcium Gluconate 20 meq/ Multivitamins 10 ml/Chromium/ Copper/Manganese/ Seleni/Zn 0.5 ml/ Total Parenteral Nutrition/Amino Acids/Dextrose/ Fat Emulsion Intravenous 1,200 ml @ 50 mls/hr TPN CONT IV ; Start 07/10/19 at 22:00; Stop 07/10/19 at 14:17; Status DC Sodium Chloride 90 meq/Potassium Chloride 15 meq/ Potassium Phosphate 10 mmol/ Magnesium Sulfate 10 meq/Calcium Gluconate 20 meq/ Multivitamins 10 ml/Chromium/ Copper/Manganese/ Seleni/Zn 0.5 ml/ Total Parenteral Nutrition/Amino Acids/Dextr ose/ Fat Emulsion Intravenous 1,200 ml @ 50 mls/hr TPN CONT IV Last administered on 07/10/19at 23:29; Start 07/10/19 at 22:00; Stop 07/11/19 at 21:59; Status DC Sodium Chloride 1,000 ml @ 1,000 mls/hr Q1H PRN IV hypotension; Start 07/11/19 at 07:28; Stop 07/11/19 at 13:27; Status DC Albumin Human 200 ml @ 200 mls/hr 1X ONCE IV Last administered on 07/11/19at 08:51; Start 07/11/19 at 07:30; Stop 07/11/19 at 08:29; Status DC Diphenhydramine HCl (Benadryl) 25 mg 1X PRN PRN IV ITCHING; Start 07/11/19 at 07:30; Stop 07/12/19 at 07:29; Status DC Diphenhydramine HCl (Benadryl) 25 mg 1X PRN PRN IV ITCHING; Start 07/11/19 at 07:30; Stop 07/12/19 at 07:29; Status DC Sodium Chloride 1,000 ml @ 400 mls/hr Q2H30M PRN IV PATENCY; Start 07/11/19 at 07:28; Stop 07/11/19 at 19:27; Status DC Info (PHARMACY MONITORING -- do not chart) 1 each PRN DAILY PRN MC SEE COMMENTS; Start 07/11/19 at 07:30; Stop 07/22/19 at 13:01; Status DC Metronidazole 100 ml @ 100 mls/hr Q6HRS IV Last administered on 07/27/19at 06:26; Start 07/11/19 at 08:30; Stop 07/27/19 at 09:58; Status DC Micafungin Sodium 100 mg/Dextrose 100 ml @ 100 mls/hr Q24H IV Last ad ministered on 08/18/19at 08:18; Start 07/11/19 at 09:00; Stop 08/18/19 at 20:58; Status DC Propofol 0 ml @ As Directed STK-MED ONCE IV ; Start 07/11/19 at 07:53; Stop 07/11/19 at 07:53; Status DC Etomidate (Amidate) 20 mg STK-MED ONCE IV ; Start 07/11/19 at 07:53; Stop 07/11/19 at 07:54; Status DC Midazolam HCl (Versed) 5 mg STK-MED ONCE .ROUTE ; Start 07/11/19 at 07:57; Stop 07/11/19 at 07:57; Status DC Fentanyl Citrate 30 ml @ 0 mls/hr CONT PRN IV SEE PROTOCOL Last administered on 08/05/19at 06:12; Start 07/11/19 at 08:15; Stop 08/05/19 at 09:19; Status DC Artificial Tears (Artificial Tears) 1 drop PRN Q1HR PRN OU DRY EYE, 1st choice; Start 07/11/19 at 08:15; Stop 08/17/19 at 05:31; Status DC Midazolam HCl 50 mg/Sodium Chloride 50 ml @ 0 mls/hr CONT PRN IV SEE PROTOCOL Last administered on 07/14/19at 22:39; Start 07/11/19 at 08:15; Stop 07/16/19 at 15:59; Status DC Etomidate (Amidate) 8 mg 1X ONCE IV Last administered on 07/11/19at 08:33; Start 07/11/19 at 08:30; Stop 07/11/19 at 08:31; Status DC Succinylcholine Chloride (Anectine) 120 mg 1X ONCE IV Last administered on 07/11/19at 08:34; Start 07/11/19 at 08:30; Stop 07/11/19 at 08:31; Status DC Midazolam HCl (Versed) 5 mg 1X ONCE IV ; Start 07/11/19 at 08:30; Stop 07/11/19 at 08:31; Status DC Potassium Chloride 15 meq/ Bicarbonate Dialysis Soln w/ out KCl 5,007.5 ml @ 1,000 mls/ hr Q5H1M IV Last administered on 07/12/19at 11:11; Start 07/11/19 at 12:00; Stop 07/12/19 at 11:15; Status DC Potassium Chloride 15 meq/ Bicarbonate Dialysis Soln w/ out KCl 5,007.5 ml @ 1,000 mls/ hr Q5H1M IV Last administered on 07/12/19at 11:12; Start 07/11/19 at 12:00; Stop 07/12/19 at 11:17; Status DC Potassium Chloride 15 meq/ Bicarbonate Dialysis Soln w/ out KCl 5,007.5 ml @ 1,000 mls/ hr Q5H1M IV Last administered on 07/12/19at 11:11; Start 07/11/19 at 12:00; Stop 07/12/19 at 11:19; Status DC Sodium Chloride 90 meq/Potassium Chloride 15 meq/ Potassium Phosphate 10 mmol/ Magnesium Sulfate 10 meq/Calcium Gluconate 20 meq/ Multivitamins 10 ml/Chromium/ Copper/Manganese/ Seleni/Zn 0.5 ml/ Total Parenteral Nutrition/Amino Acids/Dextrose/ Fat Emulsion Intravenous 1,400 ml @ 58.333 mls/ hr TPN CONT IV Last administered on 07/11/19at 21:42; Start 07/11/19 at 22:00; Stop 07/12/19 at 21:59; Status DC Heparin Sodium (Porcine) (Heparin Sodium) 5,000 unit Q8HRS SQ Last administered on 07/16/19at 05:55; Start 07/11/19 at 15:00; Stop 07/16/19 at 13:28; Status DC Meropenem 500 mg/ Sodium Chloride 50 ml @ 100 mls/hr Q6HRS IV Last administered on 07/13/19at 06:00; Start 07/12/19 at 09:00; Stop 07/13/19 at 07:29; Status DC Potassium Phosphate 20 mmol/ Sodium Chloride 106.6667 ml @ 51.667 m... 1X ONCE IV Last administered on 07/12/19at 11:22; Start 07/12/19 at 10:15; Stop 07/12/19 at 12:18; Status DC Acetaminophen (Tylenol Supp) 650 mg PRN Q6HRS PRN ND MILD PAIN / TEMP > 100.3'F Last administered on 08/23/19at 09:12; Start 07/12/19 at 10:30 Potassium Chloride/Water 100 ml @ 100 mls/hr Q1H IV Last administered on 07/12/19at 12:12; Start 07/12/19 at 11:00; Stop 07/12/19 at 12:59; Status DC Potassium Chloride 20 meq/ Bicarbonate Dialysis Soln w/ out KCl 5,010 ml @ 1,000 mls/hr Q5H1M IV Last administered on 07/13/19at 08:48; Start 07/12/19 at 12:00; Stop 07/13/19 at 13:03; Status DC Potassium Chloride 20 meq/ Bicarbonate Dialysis Soln w/ out KCl 5,010 ml @ 1,000 mls/hr Q5H1M IV Last administered on 07/17/19at 14:52; Start 07/12/19 at 11:30; Stop 07/17/19 at 19:59; Status DC Potassium Chloride 20 meq/ Bicarbonate Dialysis Soln w/ out KCl 5,010 ml @ 1,000 mls/hr Q5H1M IV Last administered on 07/17/19at 14:53; Start 07/12/19 at 11:30; Stop 07/17/19 at 19:59; Status DC Sodium Chloride 90 meq/Potassium Chloride 15 meq/ Potassium Phosphate 15 mmol/ Magnesium Sulfate 10 meq/Calcium Gluconate 15 meq/ Multivitamins 10 ml/Chromium/ Copper/Manganese/ Seleni/Zn 0.5 ml/ Total Parenteral Nutrition/Amino Acids/Dextrose/ Fat Emulsion Intravenous 1,400 ml @ 58.333 mls/ hr TPN CONT IV Last administered on 07/12/19 22:17; Start 07/12/19 at 22:00; Stop 07/13/19 at 21:59; Status DC Cefepime HCl (Maxipime) 2 gm Q12HR IVP Last administered on 07/26/19at 20:56; Start 07/13/19 at 09:00; Stop 07/27/19 at 09:58; Status DC Daptomycin 500 mg/ Sodium Chloride 50 ml @ 100 mls/hr Q48H IV Last administered on 07/29/19at 09:57; Start 07/13/19 at 08:30; Stop 07/29/19 at 10:07; Status DC Lidocaine HCl (Buffered Lidocaine 1%) 3 ml 1X ONCE INJ Last administered on 07/13/19at 10:27; Start 07/13/19 at 10:30; Stop 07/13/19 at 10:31; Status DC Potassium Phosphate 20 mmol/ Sodium Chloride 106.6667 ml @ 51.667 m... 1X ONCE IV Last administered on 07/13/19at 12:51; Start 07/13/19 at 13:00; Stop 07/13/19 at 15:03; Status DC Sodium Chloride 90 meq/Potassium Chloride 15 meq/ Potassium Phosphate 18 mmol/ Magnesium Sulfate 8 meq/Calcium Gluconate 15 meq/ Multivitamins 10 ml/Chromium/ Copper/Manganese/ Seleni/Zn 0.5 ml/ Total Parenteral Nutrition/Amino Acids/Dextrose/ Fat Emulsion Intravenous 1,400 ml @ 58.333 mls/ hr TPN CONT IV Last administered on 07/13/19at 22:16; Start 07/13/19 at 22:00; Stop 07/14/19 at 21:59; Status DC Potassium Chloride 20 meq/ Bicarbonate Dialysis Soln w/ out KCl 5,010 ml @ 1,000 mls/hr Q5H1M IV Last administered on 07/17/19at 14:54; Start 07/13/19 at 16:00; Stop 07/17/19 at 19:59; Status DC Multi-Ingred Cream/Lotion/Oil/ Oint (Artificial Tears Eye Ointment) 1 ramu PRN Q1HR PRN OU DRY EYE, 2nd choice Last administered on 08/01/19at 08:19; Start 07/13/19 at 17:30 Sodium Chloride 90 meq/Potassium Chloride 15 meq/ Potassium Phosphate 18 mmol/ Magnesium Sulfate 8 meq/Calcium Gluconate 15 meq/ Multivitamins 10 ml/Chromium/ Copper/Manganese/ Seleni/Zn 0.5 ml/ Total Parenteral Nutrition/Amino Acids/Dextrose/ Fat Emulsion Intravenous 1,400 ml @ 58.333 mls/ hr TPN CONT IV Last administered on 07/14/19at 22:00; Start 07/14/19 at 22:00; Stop 07/15/19 at 21:59; Status DC Albumin Human 500 ml @ 125 mls/hr 1X ONCE IV ; Start 07/14/19 at 14:15; Stop 07/14/19 at 18:14; Status DC Sodium Chloride 90 meq/Potassium Chloride 15 meq/ Potassium Phosphate 18 mmol/ Magnesium Sulfate 8 meq/Calcium Gluconate 15 meq/ Multivitamins 10 ml/Chromium/ Copper/Manganese/ Seleni/Zn 0.5 ml/ Insulin Human Regular 10 unit/ Total Parenteral Nutrition/Amino Acids/Dextrose/ Fat Emulsion Intravenous 1,400 ml @ 58.333 mls/ hr TPN CONT IV Last administered on 07/15/19at 21:43; Start 07/15/19 at 22:00; Stop 07/16/19 at 21:59; Status DC Lidocaine HCl (Buffered Lidocaine 1%) 3 ml STK-MED ONCE .ROUTE ; Start 07/13/19 at 10:00; Stop 07/15/19 at 13:57; Status DC Midazolam HCl 100 mg/Sodium Chloride 100 ml @ 7 mls/hr CONT PRN IV SEE PROTOCOL Last administered on 07/27/19at 15:35; Start 07/16/19 at 16:00 Sodium Chloride 90 meq/Potassium Chloride 15 meq/ Potassium Phosphate 18 mmol/ Magnesium Sulfate 8 meq/Calcium Gluconate 15 meq/ Multivitamins 10 ml/Chromium/ Copper/Manganese/ Seleni/Zn 0.5 ml/ Insulin Human Regular 15 unit/ Total Parenteral Nutrition/Amino Acids/Dextrose/ Fat Emulsion Intravenous 1,400 ml @ 58.333 mls/ hr TPN CONT IV Last administered on 07/16/19at 20:34; Start 07/16/19 at 22:00; Stop 07/17/19 at 21:59; Status DC Info (Icu Electrolyte Protocol) 1 ea CONT PRN PRN MC PER PROTOCOL; Start 07/17/19 at 13:15 Sodium Chloride 90 meq/Potassium Chloride 15 meq/ Potassium Phosphate 18 mmol/ Magnesium Sulfate 8 meq/Calcium Gluconate 15 meq/ Multivitamins 10 ml/Chromium/ Copper/Manganese/ Seleni/Zn 0.5 ml/ Insulin Human Regular 15 unit/ Total Parenteral Nutrition/Amino Acids/Dextrose/ Fat Emulsion Intravenous 1,400 ml @ 58.333 mls/ hr TPN CONT IV Last administered on 07/17/19at 22:05; Start 07/17/19 at 22:00; Stop 07/18/19 at 21:59; Status DC Potassium Chloride 15 meq/ Bicarbonate Dialysis Soln w/ out KCl 5,007.5 ml @ 1,000 mls/ hr Q5H1M IV Last administered on 07/20/19at 18:14; Start 07/17/19 at 20:00; Stop 07/21/19 at 13:08; Status DC Potassium Chloride 15 meq/ Bicarbonate Dialysis Soln w/ out KCl 5,007.5 ml @ 1,000 mls/ hr Q5H1M IV Last administered on 07/20/19at 18:14; Start 07/17/19 at 20:00; Stop 07/21/19 at 13:08; Status DC Potassium Chloride 15 meq/ Bicarbonate Dialysis Soln w/ out KCl 5,007.5 ml @ 1,000 mls/ hr Q5H1M IV Last administered on 07/20/19at 18:14; Start 07/17/19 at 20:00; Stop 07/21/19 at 13:08; Status DC Iohexol (Omnipaque 240 Mg/ml) 30 ml 1X ONCE PO Last administered on 07/18/19at 11:30; Start 07/18/19 at 11:30; Stop 07/18/19 at 11:33; Status DC Info (CONTRAST GIVEN -- Rx MONITORING) 1 each PRN DAILY PRN MC SEE COMMENTS; Start 07/18/19 at 11:45; Stop 07/20/19 at 11:44; Status DC Sodium Chloride 90 meq/Potassium Chloride 15 meq/ Potassium Phosphate 18 mmol/ Magnesium Sulfate 8 meq/Calcium Gluconate 15 meq/ Multivitamins 10 ml/Chromium/ Copper/Manganese/ Seleni/Zn 0.5 ml/ Insulin Human Regular 15 unit/ Total Parenteral Nutrition/Amino Acids/Dextrose/ Fat Emulsion Intravenous 1,400 ml @ 58.333 mls/ hr TPN CONT IV Last administered on 07/18/19at 21:47; Start at 22:00; Stop 07/19/19 at 21:59; Status DC Sodium Chloride 90 meq/Potassium Chloride 15 meq/ Potassium Phosphate 18 mmol/ Magnesium Sulfate 8 meq/Calcium Gluconate 15 meq/ Multivitamins 10 ml/Chromium/ Copper/Manganese/ Seleni/Zn 0.5 ml/ Insulin Human Regular 20 unit/ Total Parenteral Nutrition/Amino Acids/Dextrose/ Fat Emulsion Intravenous 1,400 ml @ 58.333 mls/ hr TPN CONT IV Last administered on 07/19/19at 21:36; Start 07/19/19 at 22:00; Stop 07/20/19 at 21:59; Status DC Alteplase, Recombinant (Cathflo For Central Catheter Clearance) 1 mg 1X ONCE INT CAT Last administered on 07/19/19at 20:03; Start 07/19/19 at 19:30; Stop 07/19/19 at 19:46; Status DC Alteplase, Recombinant (Cathflo For Central Catheter Clearance) 1 mg 1X ONCE INT CAT Last administered on 07/19/19at 22:05; Start 07/19/19 at 22:00; Stop 07/19/19 at 22:01; Status DC Sodium Chloride 90 meq/Potassium Chloride 15 meq/ Potassium Phosphate 18 mmol/ Magnesium Sulfate 8 meq/Calcium Gluconate 15 meq/ Multivitamins 10 ml/Chromium/ Copper/Manganese/ Seleni/Zn 0.5 ml/ Insulin Human Regular 20 unit/ Total Parenteral Nutrition/Amino Acids/Dextrose/ Fat Emulsion Intravenous 1,400 ml @ 58.333 mls/ hr TPN CONT IV Last administered on 07/20/19at 21:30; Start 07/20/19 at 22:00; Stop 07/21/19 at 21:59; Status DC Dexmedetomidine HCl 400 mcg/ Sodium Chloride 100 ml @ 0 mls/hr CONT PRN IV ANXIETY / AGITATION Last administered on 09/11/19at 03:33; Start 07/21/19 at 08:15 Sodium Chloride 500 ml @ 500 mls/hr 1X PRN PRN IV ELEVATED BP, SEE COMMENTS; Start 07/21/19 at 08:15 Atropine Sulfate (ATROPINE 0.5mg SYRINGE) 0.5 mg PRN Q5MIN PRN IV SEE COMMENTS; Start 07/21/19 at 08:15 Furosemide (Lasix) 20 mg 1X ONCE IVP Last administered on 07/21/19at 08:19; Start 07/21/19 at 08:15; Stop 07/21/19 at 08:16; Status DC Lidocaine HCl (Buffered Lidocaine 1%) 3 ml STK-MED ONCE .ROUTE ; Start 07/21/19 at 08:39; Stop 07/21/19 at 08:39; Status DC Lidocaine HCl (Buffered Lidocaine 1%) 6 ml 1X ONCE INJ Last administered on 07/21/19at 09:05; Start 07/21/19 at 09:00; Stop 07/21/19 at 09:06; Status DC Sodium Chloride 90 meq/Potassium Chloride 15 meq/ Potassium Phosphate 18 mmol/ Magnesium Sulfate 8 meq/Calcium Gluconate 15 meq/ Multivitamins 10 ml/Chromium/ Copper/Manganese/ Seleni/Zn 0.5 ml/ Insulin Human Regular 20 unit/ Total Pare nteral Nutrition/Amino Acids/Dextrose/ Fat Emulsion Intravenous 1,400 ml @ 58.333 mls/ hr TPN CONT IV Last administered on 07/21/19at 22:45; Start 07/21/19 at 22:00; Stop 07/22/19 at 21:59; Status DC Sodium Chloride 1,000 ml @ 1,000 mls/hr Q1H PRN IV hypotension; Start 07/22/19 at 07:30; Stop 07/22/19 at 13:29; Status DC Albumin Human 200 ml @ 200 mls/hr 1X PRN PRN IV Hypotension Last administered on 07/22/19at 09:36; Start 07/22/19 at 07:30; Stop 07/22/19 at 13:29; Status DC Sodium Chloride (Normal Saline Flush) 10 ml 1X PRN PRN IV AP catheter pack; Start 07/22/19 at 07:30; Stop 07/22/19 at 21:29; Status DC Sodium Chloride (Normal Saline Flush) 10 ml 1X PRN PRN IV READING COACH catheter pack; Start 07/22/19 at 07:30; Stop 07/23/19 at 07:29; Status DC Sodium Chloride 1,000 ml @ 400 mls/hr Q2H30M PRN IV PATENCY; Start 07/22/19 at 07:30; Stop 07/22/19 at 19:29; Status DC Info (PHARMACY MONITORING -- do not chart) 1 each PRN DAILY PRN MC SEE COMMENTS; Start 07/22/19 at 07:30; Stop 07/22/19 at 13:02; Status DC Info (PHARMACY MONITORING -- do not chart) 1 each PRN DAILY PRN MC SEE COMMENTS; Start 07/22/19 at 07:30; Stop 07/24/19 at 12:45; Status DC Sodium Chloride 90 meq/Potassium Chloride 15 meq/ Potassium Phosphate 10 mmol/ Magnesium Sulfate 8 meq/Calcium Gluconate 15 meq/ Multivitamins 10 ml/Chromium/ Copper/Manganese/ Seleni/Zn 0.5 ml/ Insulin Human Regular 25 unit/ Total Parenteral Nutrition/Amino Acids/Dextrose/ Fat Emulsion Intravenous 1,400 ml @ 58.333 mls/ hr TPN CONT IV Last administered on 07/22/19at 22:19; Start 07/22/19 at 22:00; Stop 07/23/19 at 21:59; Status DC Heparin Sodium (Porcine) (Heparin Sodium) 5,000 unit Q12HR SQ Last administered on 08/14/19at 08:59; Start 07/22/19 at 21:00; Stop 08/14/19 at 10:05; Status DC Ondansetron HCl (Zofran) 4 mg PRN Q6HRS PRN IV NAUSEA/VOMITING; Start 07/25/19 at 07:00; Stop 07/26/19 at 06:59; Status DC Fentanyl Citrate (Fentanyl 2ml Vial) 25 mcg PRN Q5MIN PRN IV MILD PAIN 1-3; Start 07/25/19 at 07:00; Stop 07/26/19 at 06:59; Status DC Fentanyl Citrate (Fentanyl 2ml Vial) 50 mcg PRN Q5MIN PRN IV MODERATE TO SEVERE PAIN; Start 07/25/19 at 07:00; Stop 07/26/19 at 06:59; Status DC Ringer's Solution 1,000 ml @ 30 mls/hr Q24H IV ; Start 07/25/19 at 07:00; Stop 07/25/19 at 18:59; Status DC Lidocaine HCl (Xylocaine-Mpf 1% 2ml Vial) 2 ml PRN 1X PRN ID PRIOR TO IV START; Start 07/25/19 at 07:00; Stop 07/26/19 at 06:59; Status DC Prochlorperazine Edisylate (Compazine) 5 mg PACU PRN PRN IV NAUSEA, MRX1; Start 07/25/19 at 07:00; Stop 07/26/19 at 06:59; Status DC Sodium Chloride 1,000 ml @ 1,000 mls/hr Q1H PRN IV hypotension; Start 07/23/19 at 09:10; Stop 07/23/19 at 15:09; Status DC Albumin Human 200 ml @ 200 mls/hr 1X PRN PRN IV Hypotension Last administered on 07/23/19at 10:10; Start 07/23/19 at 09:15; Stop 07/23/19 at 15:14; Status DC Sodium Chloride 1,000 ml @ 400 mls/hr Q2H30M PRN IV PATENCY; Start 07/23/19 at 09:10; Stop 07/23/19 at 21:09; Status DC Info (PHARMACY MONITORING -- do not chart) 1 each PRN DAILY PRN MC SEE COMMENTS; Start 07/23/19 at 09:15; Stop 07/24/19 at 12:45; Status DC Info (PHARMACY MONITORING -- do not chart) 1 each PRN DAILY PRN MC SEE COMMENTS; Start 07/23/19 at 09:15; Stop 07/24/19 at 12:45; Status DC Sodium Chloride 90 meq/Potassium Chloride 15 meq/ Potassium Phosphate 10 mmol/ Magnesium Sulfate 8 meq/Calcium Gluconate 15 meq/ Multivitamins 10 ml/Chromium/ Copper/Manganese/ Seleni/Zn 0.5 ml/ Insulin Human Regular 25 unit/ Total Parenteral Nutrition/Amino Acids/Dextrose/ Fat Emulsion Intravenous 1,400 ml @ 58.333 mls/ hr TPN CONT IV Last administered on 07/23/19at 22:10; Start 07/23/19 at 22:00; Stop 07/24/19 at 21:59; Status DC Magnesium Sulfate 50 ml @ 25 mls/hr PRN DAILY PRN IV for Mag < 1.7 on am labs Last administered on 08/08/19at 17:27; Start 07/24/19 at 09:15 Sodium Chloride 90 meq/Potassium Chloride 15 meq/ Potassium Phosphate 10 mmol/ Magnesium Sulfate 8 meq/Calcium Gluconate 15 meq/ Multivitamins 10 ml/Chromium/ Copper/Manganese/ Seleni/Zn 0.5 ml/ Insulin Human Regular 25 unit/ Total Parenteral Nutrition/Amino Acids/Dextrose/ Fat Emulsion Intravenous 1,400 ml @ 58.333 mls/ hr TPN CONT IV Last administered on 07/24/19at 21:20; Start 07/24/19 at 22:00; Stop 07/25/19 at 21:59; Status DC Sodium Chloride 1,000 ml @ 1,000 mls/hr Q1H PRN IV hypotension; Start 07/24/19 at 12:23; Stop 07/24/19 at 18:22; Status DC Albumin Human 200 ml @ 200 mls/hr 1X ONCE IV Last administered on 07/24/19at 13:34; Start 07/24/19 at 12:30; Stop 07/24/19 at 13:29; Status DC Diphenhydramine HCl (Benadryl) 25 mg 1X PRN PRN IV ITCHING; Start 07/24/19 at 12:30; Stop 07/25/19 at 12:29; Status DC Diphenhydramine HCl (Benadryl) 25 mg 1X PRN PRN IV ITCHING; Start 07/24/19 at 12:30; Stop 07/25/19 at 12:29; Status DC Info (PHARMACY MONITORING -- do not chart) 1 each PRN DAILY PRN MC SEE COMMENTS; Start 07/24/19 at 12:30; Status Cancel Bupivacaine HCl/ Epinephrine Bitart (Sensorcain-Epi 0.5%-1:442020 Mpf) 30 ml STK-MED ONCE .ROUTE Last administered on 07/25/19at 11:44; Start 07/25/19 at 11:00; Stop 07/25/19 at 11:01; Status DC Cellulose (Surgicel Fibrillar 1x2) 1 each STK-MED ONCE .ROUTE ; Start 07/25/19 at 11:00; Stop 07/25/19 at 11:01; Status DC Sodium Chloride 90 meq/Potassium Chloride 15 meq/ Potassium Phosphate 10 mmol/ Magnesium Sulfate 12 meq/Calcium Gluconate 15 meq/ Multivitamins 10 ml/Chromium/ Copper/Manganese/ Seleni/Zn 0.5 ml/ Insulin Human Regular 25 unit/ Total Parenteral Nutrition/Amino Acids/Dextrose/ Fat Emulsion Intravenous 1,400 ml @ 58.333 mls/ hr TPN CONT IV Last administered on 07/25/19at 22:24; Start 07/25/19 at 22:00; Stop 07/26/19 at 21:59; Status DC Propofol 20 ml @ As Directed STK-MED ONCE IV ; Start 07/25/19 at 11:07; Stop 07/25/19 at 11:07; Status DC Cellulose (Surgicel Hemostat 4x8) 1 each STK-MED ONCE .ROUTE Last administered on 07/25/19at 11:44; Start 07/25/19 at 11:55; Stop 07/25/19 at 11:56; Status DC Sevoflurane (Ultane) 60 ml STK-MED ONCE IH ; Start 07/25/19 at 12:46; Stop 07/25/19 at 12:46; Status DC Sodium Chloride 1,000 ml @ 1,000 mls/hr Q1H PRN IV hypotension; Start 07/25/19 at 13:51; Stop 07/25/19 at 19:50; Status DC Albumin Human 200 ml @ 200 mls/hr 1X PRN PRN IV Hypotension Last administered on 07/25/19at 14:51; Start 07/25/19 at 14:00; Stop 07/25/19 at 19:59; Status DC Diphenhydramine HCl (Benadryl) 25 mg 1X PRN PRN IV ITCHING; Start 07/25/19 at 14:00; Stop 07/26/19 at 13:59; Status DC Diphenhydramine HCl (Benadryl) 25 mg 1X PRN PRN IV ITCHING; Start 07/25/19 at 14:00; Stop 07/26/19 at 13:59; Status DC Sodium Chloride 1,000 ml @ 400 mls/hr Q2H30M PRN IV PATENCY; Start 07/25/19 at 13:51; Stop 07/26/19 at 01:50; Status DC Info (PHARMACY MONITORING -- do not chart) 1 each PRN DAILY PRN MC SEE COMMENTS; Start 07/25/19 at 14:00; Stop 07/28/19 at 08:16; Status DC Heparin Sodium (Porcine) (Hep Lock Adult) 500 unit STK-MED ONCE IVP ; Start 07/26/19 at 09:29; Stop 07/26/19 at 09:30; Status DC Sodium Chloride 1,000 ml @ 1,000 mls/hr Q1H PRN IV hypotension; Start 07/26/19 at 10:43; Stop 07/26/19 at 16:42; Status DC Sodium Chloride 1,000 ml @ 400 mls/hr Q2H30M PRN IV PATENCY; Start 07/26/19 at 10:43; Stop 07/26/19 at 22:42; Status DC Info (PHARMACY MONITORING -- do not chart) 1 each PRN DAILY PRN MC SEE COMMENTS; Start 07/26/19 at 10:45; Status UNV Info (PHARMACY MONITORING -- do not chart) 1 each PRN DAILY PRN MC SEE COMMENTS; Start 07/26/19 at 10:45; Status UNV Sodium Chloride 90 meq/Potassium Chloride 15 meq/ Magnesium Sulfate 12 meq/C alcium Gluconate 15 meq/ Multivitamins 10 ml/Chromium/ Copper/Manganese/ Seleni/Zn 0.5 ml/ Insulin Human Regular 25 unit/ Total Parenteral Nutrition/Amino Acids/Dextrose/ Fat Emulsion Intravenous 1,400 ml @ 58.333 mls/ hr TPN CONT IV Last administered on 07/26/19at 22:13; Start 07/26/19 at 22:00; Stop 07/27/19 at 21:59; Status DC Sodium Chloride 1,000 ml @ 1,000 mls/hr Q1H PRN IV hypotension; Start 07/27/19 at 07:50; Stop 07/27/19 at 13:49; Status DC Albumin Human 200 ml @ 200 mls/hr 1X ONCE IV ; Start 07/27/19 at 08:00; Stop 07/27/19 at 08:53; Status DC Diphenhydramine HCl (Benadryl) 25 mg 1X PRN PRN IV ITCHING; Start 07/27/19 at 08:00; Stop 07/28/19 at 07:59; Status DC Diphenhydramine HCl (Benadryl) 25 mg 1X PRN PRN IV ITCHING; Start 07/27/19 at 08:00; Stop 07/28/19 at 07:59; Status DC Info (PHARMACY MONITORING -- do not chart) 1 each PRN DAILY PRN MC SEE COMMENTS; Start 07/27/19 at 08:00; Stop 07/28/19 at 08:16; Status DC Albumin Human 50 ml @ 50 mls/hr 1X ONCE IV ; Start 07/27/19 at 08:53; Stop 07/27/19 at 08:56; Status DC Albumin Human 200 ml @ 50 mls/hr PRN 1X PRN IV HYPOTENSION Last administered on 08/02/19at 11:54; Start 07/27/19 at 09:00; Stop 09/08/19 at 11:14; Status DC Meropenem 500 mg/ Sodium Chloride 50 ml @ 100 mls/hr Q12H IV Last administered on 08/16/19at 10:45; Start 07/27/19 at 10:00; Stop 08/16/19 at 12:37; Status DC Sodium Chloride 90 meq/Magnesium Sulfate 12 meq/ Calcium Gluconate 15 meq/ Multivitamins 10 ml/Chromium/ Copper/Manganese/ Seleni/Zn 0.5 ml/ Insulin Human Regular 25 unit/ Total Parenteral Nutrition/Amino Acids/Dextrose/ Fat Emulsion Intravenous 1,400 ml @ 58.333 mls/ hr TPN CONT IV Last administered on 07/27/19at 21:41; Start 07/27/19 at 22:00; Stop 07/28/19 at 21:59; Status DC Sodium Chloride 1,000 ml @ 1,000 mls/hr Q1H PRN IV hypotension; Start 07/28/19 at 07:58; Stop 07/28/19 at 13:57; Status DC Albumin Human 200 ml @ 200 mls/hr 1X PRN PRN IV Hypotension Last administered on 07/28/19at 09:30; Start 07/28/19 at 08:00; Stop 07/28/19 at 13:59; Status DC Sodium Chloride 1,000 ml @ 400 mls/hr Q2H30M PRN IV PATENCY; Start 07/28/19 at 07:58; Stop 07/28/19 at 19:57; Status DC Info (PHARMACY MONITORING -- do not chart) 1 each PRN DAILY PRN MC SEE COMMENTS; Start 07/28/19 at 08:00; Status Cancel Info (PHARMACY MONITORING -- do not chart) 1 each PRN DAILY PRN MC SEE COMMENTS; Start 07/28/19 at 08:15; Status UNV Sodium Chloride 90 meq/Potassium Phosphate 5 mmol/ Magnesium Sulfate 12 meq/Calcium Gluconate 15 meq/ Multivitamins 10 ml/Chromium/ Copper/Manganese/ Seleni/Zn 0.5 ml/ Insulin Human Regular 30 unit/ Total Parenteral Nutrition/Amino Acids/Dextrose/ Fat Emulsion Intravenous 1,400 ml @ 58.333 mls/ hr TPN CONT IV Last administered on 07/28/19at 22:08; Start 07/28/19 at 22:00; Stop 07/29/19 at 21:59; Status DC Linezolid/Dextrose 300 ml @ 300 mls/hr Q12HR IV Last administered on 08/08/19at 20:40; Start 07/29/19 at 11:00; Stop 08/09/19 at 08:10; Status DC Sodium Chloride 90 meq/Potassium Phosphate 15 mmol/ Magnesium Sulfate 12 meq/Calcium Gluconate 15 meq/ Multivitamins 10 ml/Chromium/ Copper/Manganese/ Seleni/Zn 0.5 ml/ Insulin Human Regular 30 unit/ Total Parenteral Nutrition/Amino Acids/Dextrose/ Fat Emulsion Intravenous 1,400 ml @ 58.333 mls/ hr TPN CONT IV Last administered on 07/29/19at 21:49; Start 07/29/19 at 22:00; Stop 07/30/19 at 21:59; Status DC Sodium Chloride 90 meq/Potassium Phosphate 15 mmol/ Magnesium Sulfate 12 meq/Calcium Gluconate 15 meq/ Multivitamins 10 ml/Chromium/ Copper/Manganese/ Seleni/Zn 0.5 ml/ Insulin Human Regular 40 unit/ Total Parenteral Nutrition/Ami no Acids/Dextrose/ Fat Emulsion Intravenous 1,400 ml @ 58.333 mls/ hr TPN CONT IV Last administered on 07/30/19at 21:21; Start 07/30/19 at 22:00; Stop 07/31/19 at 21:59; Status DC Sodium Chloride 1,000 ml @ 1,000 mls/hr Q1H PRN IV hypotension; Start 07/30/19 at 13:26; Stop 07/30/19 at 19:25; Status DC Albumin Human 200 ml @ 200 mls/hr 1X PRN PRN IV Hypotension Last administered on 07/30/19at 15:00; Start 07/30/19 at 13:30; Stop 07/30/19 at 19:29; Status DC Sodium Chloride (Normal Saline Flush) 10 ml 1X PRN PRN IV AP catheter pack; Start 07/30/19 at 13:30; Stop 07/31/19 at 13:29; Status DC Sodium Chloride (Normal Saline Flush) 10 ml 1X PRN PRN IV READING COACH catheter pack; Start 07/30/19 at 13:30; Stop 07/31/19 at 13:29; Status DC Sodium Chloride 1,000 ml @ 400 mls/hr Q2H30M PRN IV PATENCY; Start 07/30/19 at 13:26; Stop 07/31/19 at 01:25; Status DC Info (PHARMACY MONITORING -- do not chart) 1 each PRN DAILY PRN MC SEE COMMENTS; Start 07/30/19 at 13:30; Stop 07/30/19 at 13:33; Status DC Info (PHARMACY MONITORING -- do not chart) 1 each PRN DAILY PRN MC SEE COMMENTS; Start 07/30/19 at 13:30; Stop 07/30/19 at 13:34; Status DC Sodium Chloride 90 meq/Potassium Phosphate 19 mmol/ Magnesium Sulfate 12 meq/Calcium Gluconate 15 meq/ Multivitamins 10 ml/Chromium/ Copper/Manganese/ Seleni/Zn 0.5 ml/ Insulin Human Regular 40 unit/ Total Parenteral Nutrition/Amino Acids/Dextrose/ Fat Emulsion Intravenous 1,400 ml @ 58.333 mls/ hr TPN CONT IV Last administered on 07/31/19at 21:54; Start 07/31/19 at 22:00; Stop 08/01/19 at 21:59; Status DC Sodium Chloride 1,000 ml @ 1,000 mls/hr Q1H PRN IV hypotension; Start 08/01/19 at 09:35; Stop 08/01/19 at 15:34; Status DC Albumin Human 200 ml @ 200 mls/hr 1X PRN PRN IV Hypotension; Start 08/01/19 at 09:45; Stop 08/01/19 at 15:44; Status DC Diphenhydramine HCl (Benadryl) 25 mg 1X PRN PRN IV ITCHING; Start 08/01/19 at 09:45; Stop 08/02/19 at 09:44; Status DC Diphenhydramine HCl (Benadryl) 25 mg 1X PRN PRN IV ITCHING; Start 08/01/19 at 09:45; Stop 08/02/19 at 09:44; Status DC Sodium Chloride 1,000 ml @ 400 mls/hr Q2H30M PRN IV PATENCY; Start 08/01/19 at 09:35; Stop 08/01/19 at 21:34; Status DC Info (PHARMACY MONITORING -- do not chart) 1 each PRN DAILY PRN MC SEE COMMENTS; Start 08/01/19 at 09:45; Status Cancel Sodium Chloride 100 meq/Potassium Phosphate 19 mmol/ Magnesium Sulfate 12 meq/Calcium Gluconate 15 meq/ Multivitamins 10 ml/Chromium/ Copper/Manganese/ Seleni/Zn 0.5 ml/ Insulin Human Regular 40 unit/ Potassium Chloride 20 meq/ Total Parenteral Nutrition/Amino Acids/Dextrose/ Fat Emulsion Intravenous 1,400 ml @ 58.333 mls/ hr TPN CONT IV Last administered on 08/01/19at 22:02; Start 08/01/19 at 22:00; Stop 08/02/19 at 21:59; Status DC Furosemide (Lasix) 40 mg 1X ONCE IVP Last administered on 08/01/19at 14:39; St art 08/01/19 at 14:30; Stop 08/01/19 at 14:31; Status DC Metronidazole 100 ml @ 100 mls/hr Q8HRS IV Last administered on 08/09/19at 06:04; Start 08/02/19 at 10:00; Stop 08/09/19 at 08:10; Status DC Sodium Chloride 1,000 ml @ 1,000 mls/hr Q1H PRN IV hypotension; Start 08/02/19 at 08:00; Stop 08/02/19 at 13:59; Status DC Albumin Human 200 ml @ 200 mls/hr 1X PRN PRN IV Hypotension; Start 08/02/19 at 08:00; Stop 08/02/19 at 13:59; Status DC Sodium Chloride 1,000 ml @ 400 mls/hr Q2H30M PRN IV PATENCY; Start 08/02/19 at 08:00; Stop 08/02/19 at 19:59; Status DC Info (PHARMACY MONITORING -- do not chart) 1 each PRN DAILY PRN MC SEE COMMENTS; Start 08/02/19 at 11:30; Status UNV Info (PHARMACY MONITORING -- do not chart) 1 each PRN DAILY PRN MC SEE COMMENT S; Start 08/02/19 at 11:30; Stop 08/04/19 at 12:13; Status DC Sodium Chloride 100 meq/Potassium Phosphate 19 mmol/ Magnesium Sulfate 12 meq/Calcium Gluconate 15 meq/ Multivitamins 10 ml/Chromium/ Copper/Manganese/ Seleni/Zn 0.5 ml/ Insulin Human Regular 40 unit/ Potassium Chloride 20 meq/ Total Parenteral Nutrition/Amino Acids/Dextrose/ Fat Emulsion Intravenous 1,400 ml @ 58.333 mls/ hr TPN CONT IV Last administered on 08/02/19at 21:52; Start 08/02/19 at 22:00; Stop 08/03/19 at 21:59; Status DC Sodium Chloride (Normal Saline Flush) 10 ml QSHIFT PRN IV AFTER MEDS AND BLOOD DRAWS; Start 08/02/19 at 15:00; Stop 08/30/19 at 11:27; Status DC Sodium Chloride (Normal Saline Flush) 10 ml PRN Q5MIN PRN IV AFTER MEDS AND BLOOD DRAWS; Start 08/02/19 at 15:00 Sodium Chloride (Normal Saline Flush) 20 ml PRN Q5MIN PRN IV AFTER MEDS AND BLOOD DRAWS; Start 08/02/19 at 15:00 Sodium Chloride 100 meq/Potassium Phosphate 19 mmol/ Magnesium Sulfate 12 meq/Calcium Gluconate 15 meq/ Multivitamins 10 ml/Chromium/ Copper/Manganese/ Seleni/Zn 0.5 ml/ Insulin Human Regular 40 unit/ Potassium Chloride 20 meq/ Total Parenteral Nutrition/Amino Acids/Dextrose/ Fat Emulsion Intravenous 1,400 ml @ 58.333 mls/ hr TPN CONT IV Last administered on 08/03/19at 21:20; Start 08/03/19 at 22:00; Stop 08/04/19 at 21:59; Status DC Lidocaine HCl (Buffered Lidocaine 1%) 3 ml STK-MED ONCE .ROUTE ; Start 08/03/19 at 13:16; Stop 08/03/19 at 13:16; Status DC Lidocaine HCl (Buffered Lidocaine 1%) 6 ml 1X ONCE INJ Last administered on 08/03/19at 13:45; Start 08/03/19 at 13:30; Stop 08/03/19 at 13:31; Status DC Albumin Human 100 ml @ 100 mls/hr 1X ONCE IV Last administered on 08/03/19at 15:41; Start 08/03/19 at 15:00; Stop 08/03/19 at 15:59; Status DC Albumin Human 50 ml @ 50 mls/hr 1X ONCE IV Last administered on 08/03/19at 15:00; Start 08/03/19 at 15:00; Stop 08/03/19 at 15:59; Status DC Info (PHARMACY MONITORING -- do not chart) 1 each PRN DAILY PRN MC SEE COMMENTS; Start 08/04/19 at 11:30; Status Cancel Info (PHARMACY MONITORING -- do not chart) 1 each PRN DAILY PRN MC SEE COMMENTS; Start 08/04/19 at 11:30; Status UNV Sodium Chloride 100 meq/Potassium Phosphate 10 mmol/ Magnesium Sulfate 12 meq/Calcium Gluconate 15 meq/ Multivitamins 10 ml/Chromium/ Copper/Manganese/ Seleni/Zn 0.5 ml/ Insulin Human Regular 35 unit/ Potassium Chloride 20 meq/ Total Parenteral Nutrition/Amino Acids/Dextrose/ Fat Emulsion Intravenous 1,400 ml @ 58.333 mls/ hr TPN CONT IV Last administered on 08/04/19at 22:10; Start 08/04/19 at 22:00; Stop 08/05/19 at 21:59; Status DC Sodium Chloride 100 meq/Potassium Phosphate 5 mmol/ Magnesium Sulfate 12 meq/Calcium Gluconate 15 meq/ Multivitamins 10 ml/Chromium/ Copper/Manganese/ Seleni/Zn 0.5 ml/ Insulin Human Regular 35 unit/ Potassium Chloride 20 meq/ Total Parenteral Nutrition/Amino Acids/Dextrose/ Fat Emulsion Intravenous 1,400 ml @ 58.333 mls/ hr TPN CONT IV Last administered on 08/05/19at 22:59; Start 08/05/19 at 22:00; Stop 08/06/19 at 21:59; Status DC Sodium Chloride 1,000 ml @ 1,000 mls/hr Q1H PRN IV hypotension; Start 08/06/19 at 08:27; Stop 08/06/19 at 14:26; Status DC Albumin Human 200 ml @ 200 mls/hr 1X PRN PRN IV Hypotension Last administered on 08/06/19at 09:18; Start 08/06/19 at 08:30; Stop 08/06/19 at 14:29; Status DC Sodium Chloride 1,000 ml @ 400 mls/hr Q2H30M PRN IV PATENCY; Start 08/06/19 at 08:27; Stop 08/06/19 at 20:26; Status DC Info (PHARMACY MONITORING -- do not chart) 1 each PRN DAILY PRN MC SEE COMMENTS; Start 08/06/19 at 08:30; Status Cancel Info (PHARMACY MONITORING -- do not chart) 1 each PRN DAILY PRN MC SEE COMMENTS; Start 08/06/19 at 08:30; Stop 08/14/19 at 13:10; Status DC Sodium Chloride 100 meq/Potassium Chloride 40 meq/ Magnesium Sulfate 15 meq/Calcium Gluconate 15 meq/ Multivitamins 10 ml/Chromium/ Copper/Manganese/ Seleni/Zn 0.5 ml/ Insulin Human Regular 35 unit/ Total Parenteral Nutrition/Amino Acids/Dextrose/ Fat Emulsion Intravenous 1,400 ml @ 58.333 mls/ hr TPN CONT IV Last administered on 08/06/19at 22:00; Start 08/06/19 at 22:00; Stop 08/07/19 at 21:59; Status DC Potassium Chloride/Water 100 ml @ 100 mls/hr 1X ONCE IV Last administered on 08/06/19at 17:28; Start 08/06/19 at 14:45; Stop 08/06/19 at 15:44; Status DC Sodium Chloride 100 meq/Potassium Chloride 40 meq/ Magnesium Sulfate 15 meq/Calcium Gluconate 15 meq/ Multivitamins 10 ml/Chromium/ Copper/Manganese/ Seleni/Zn 0.5 ml/ Insulin Human Regular 35 unit/ Total Parenteral Nutrition/Ami no Acids/Dextrose/ Fat Emulsion Intravenous 1,400 ml @ 58.333 mls/ hr TPN CONT IV Last administered on 08/07/19at 22:46; Start 08/07/19 at 22:00; Stop 08/08/19 at 21:59; Status DC Sodium Chloride 100 meq/Potassium Chloride 40 meq/ Magnesium Sulfate 20 m eq/Calcium Gluconate 15 meq/ Multivitamins 10 ml/Chromium/ Copper/Manganese/ Seleni/Zn 0.5 ml/ Insulin Human Regular 35 unit/ Total Parenteral Nutrition/Amino Acids/Dextrose/ Fat Emulsion Intravenous 1,400 ml @ 58.333 mls/ hr TPN CONT IV Last administered on 08/08/19at 22:31; Start 08/08/19 at 22:00; Stop 08/09/19 at 21:59; Status DC Fentanyl Citrate (Fentanyl 2ml Vial) 50 mcg PRN Q2HR PRN IVP PAIN Last administered on 08/15/19at 13:32; Start 08/08/19 at 21:00; Stop 08/16/19 at 12:53; Status DC Fentanyl Citrate (Fentanyl 2ml Vial) 25 mcg PRN Q2HR PRN IVP PAIN; Start 08/08/19 at 21:00; Stop 08/16/19 at 12:54; Status DC Enoxaparin Sodium (Lovenox 100mg Syringe) 100 mg Q12HR SQ ; Start 08/09/19 at 21:00; Status UNV Amino Acids/ Glycerin/ Electrolytes 1,000 ml @ 75 mls/hr [id number] IV ; Start 08/08/19 at 21:15; Status UNV Sodium Chloride 1,000 ml @ 1,000 mls/hr Q1H PRN IV hypotension; Start 08/09/19 at 07:56; Stop 08/09/19 at 13:55; Status DC Albumin Human 200 ml @ 200 mls/hr 1X PRN PRN IV Hypotension Last administered on 08/09/19at 08:40; Start 08/09/19 at 08:00; Stop 08/09/19 at 13:59; Status DC Sodium Chloride 1,000 ml @ 400 mls/hr Q2H30M PRN IV PATENCY; Start 08/09/19 at 07:56; Stop 08/09/19 at 19:55; Status DC Info (PHARMACY MONITORING -- do not chart) 1 each PRN DAILY PRN MC SEE COMMENTS; Start 08/09/19 at 08:00; Status UNV Info (PHARMACY MONITORING -- do not chart) 1 each PRN DAILY PRN MC SEE COMMENTS; Start 08/09/19 at 08:00; Status UNV Daptomycin 430 mg/ Sodium Chloride 50 ml @ 100 mls/hr Q24H IV Last administered on 08/09/19at 12:35; Start 08/09/19 at 09:00; Stop 08/09/19 at 12:49; Status DC Sodium Chloride 100 meq/Potassium Chloride 40 meq/ Magnesium Sulfate 20 meq/Calcium Gluconate 15 meq/ Multivitamins 10 ml/Chromium/ Copper/Manganese/ Seleni/Zn 0.5 ml/ Insulin Human Regular 35 unit/ Total Parenteral Nutrition/Amino Acids/Dextrose/ Fat Emulsion Intravenous 1,400 ml @ 58.333 mls/ hr TPN CONT IV Last administered on 08/09/19at 21:26; Start 08/09/19 at 22:00; Stop 08/10/19 at 21:59; Status DC Daptomycin 430 mg/ Sodium Chloride 50 ml @ 100 mls/hr Q48H IV ; Start 08/11/19 at 09:00; Stop 08/10/19 at 11:55; Status DC Sodium Chloride 100 meq/Potassium Chloride 40 meq/ Magnesium Sulfate 20 meq/Calcium Gluconate 15 meq/ Multivitamins 10 ml/Chromium/ Copper/Manganese/ Seleni/Zn 0.5 ml/ Insulin Human Regular 35 unit/ Total Parenteral Nutrition/Amino Acids/Dextrose/ Fat Emulsion Intravenous 1,400 ml @ 58.333 mls/ hr TPN CONT IV Last administered on 08/10/19at 22:27; Start 08/10/19 at 22:00; Stop 08/11/19 at 21:59; Status DC Daptomycin 430 mg/ Sodium Chloride 50 ml @ 100 mls/hr Q24H IV Last administered on 08/12/19at 15:07; Start 08/10/19 at 13:00; Stop 08/13/19 at 13:15; Status DC Sodium Chloride 100 meq/Potassium Chloride 40 meq/ Magnesium Sulfate 20 meq/Calcium Gluconate 10 meq/ Multivitamins 10 ml/Chromium/ Copper/Manganese/ Seleni/Zn 0.5 ml/ Insulin Human Regular 35 unit/ Total Parenteral Nutrition/Amino Acids/Dextrose/ Fat Emulsion Intravenous 1,400 ml @ 58.333 mls/ hr TPN CONT IV Last administered on 08/12/19at 00:06; Start 08/11/19 at 22:00; Stop 08/12/19 at 21:59; Status DC Alteplase, Recombinant (Cathflo For Central Catheter Clearance) 1 mg 1X ONCE INT CAT Last administered on 08/12/19at 11:44; Start 08/12/19 at 10:45; Stop 08/12/19 at 10:46; Status DC Ondansetron HCl (Zofran) 4 mg PRN Q6HRS PRN IV NAUSEA/VOMITING; Start 08/15/19 at 07:00; Stop 08/16/19 at 06:59; Status DC Fentanyl Citrate (Fentanyl 2ml Vial) 25 mcg PRN Q5MIN PRN IV MILD PAIN 1-3; Start 08/15/19 at 07:00; Stop 08/16/19 at 06:59; Status DC Fentanyl Citrate (Fentanyl 2ml Vial) 50 mcg PRN Q5MIN PRN IV MODERATE TO SEVERE PAIN Last administered on 08/15/19at 10:17; Start 08/15/19 at 07:00; Stop 08/16/19 at 06:59; Status DC Ringer's Solution 1,000 ml @ 30 mls/hr Q24H IV ; Start 08/15/19 at 07:00; Stop 08/15/19 at 18:59; Status DC Lidocaine HCl (Xylocaine-Mpf 1% 2ml Vial) 2 ml PRN 1X PRN ID PRIOR TO IV START; Start 08/15/19 at 07:00; Stop 08/16/19 at 06:59; Status DC Prochlorperazine Edisylate (Compazine) 5 mg PACU PRN PRN IV NAUSEA, MRX1; Start 08/15/19 at 07:00; Stop 08/16/19 at 06:59; Status DC Sodium Acetate 50 meq/Potassium Acetate 55 meq/ Magnesium Sulfate 20 meq/Calcium Gluconate 10 meq/ Multivitamins 10 ml/Chromium/ Copper/Manganese/ Seleni/Zn 0.5 ml/ Insulin Human Regular 35 unit/ Total Parenteral Nutrition/Amino Acids/Dextrose/ Fat Emulsion Intravenous 1,400 ml @ 58.333 mls/ hr TPN CONT IV ; Start 08/12/19 at 22:00; Stop 08/12/19 at 14:15; Status DC Sodium Acetate 50 meq/Potassium Acetate 55 meq/ Magnesium Sulfate 20 meq/Calcium Gluconate 10 meq/ Multivitamins 10 ml/Chromium/ Copper/Manganese/ Seleni/Zn 0.5 ml/ Insulin Human Regular 35 unit/ Total Parenteral Nutrition/Amino Acids/Dextrose/ Fat Emulsion Intravenous 1,800 ml @ 75 mls/hr TPN CONT IV [place] st administered on 08/12/19at 22:38; Start 08/12/19 at 22:00; Stop 08/13/19 at 21:59; Status DC Sodium Chloride 1,000 ml @ 1,000 mls/hr Q1H PRN IV hypotension; Start 08/12/19 at 15:31; Stop 08/12/19 at 21:30; Status DC Diphenhydramine HCl (Benadryl) 25 mg 1X PRN PRN IV ITCHING; Start 08/12/19 at 15:45; Stop 08/13/19 at 15:44; Status DC Diphenhydramine HCl (Benadryl) 25 mg 1X PRN PRN IV ITCHING; Start 08/12/19 at 15:45; Stop 08/13/19 at 15:44; Status DC Sodium Chloride 1,000 ml @ 400 mls/hr Q2H30M PRN IV PATENCY; Start 08/12/19 at 15:31; Stop 08/13/19 at 03:30; Status DC Info (PHARMACY MONITORING -- do not chart) 1 each PRN DAILY PRN MC SEE COMMENTS; Start 08/12/19 at 15:45 Sodium Acetate 50 meq/Potassium Acetate 55 meq/ Magnesium Sulfate 20 meq/Calcium Gluconate 10 meq/ Multivitamins 10 ml/Chromium/ Copper/Manganese/ Seleni/Zn 0.5 ml/ Insulin Human Regular 35 unit/ Total Parenteral Nutrition/Amino Acids/Dextrose/ Fat Emulsion Intravenous 1,800 ml @ 75 mls/hr TPN CONT IV Last administered on 08/13/19at 22:03; Start 08/13/19 at 22:00; Stop 08/14/19 at 21:59; Status DC Daptomycin 430 mg/ Sodium Chloride 50 ml @ 100 mls/hr Q24H IV Last administered on 08/18/19at 13:00; Start 08/13/19 at 13:00; Stop 08/18/19 at 20:58; Status DC Heparin Sodium (Porcine) 1000 unit/Sodium Chloride 1,001 ml @ 1,001 mls/hr 1X ONCE IRR ; Start 08/15/19 at 06:00; Stop 08/15/19 at 06:59; Status DC Potassium Acetate 55 meq/Magnesium Sulfate 20 meq/ Calcium Gluconate 10 meq/ Multivitamins 10 ml/Chromium/ Copper/Manganese/ Seleni/Zn 0.5 ml/ Insulin Human Regular 35 unit/ Total Parenteral Nutrition/Amino Acids/Dextrose/ Fat Emulsion Intravenous 1,920 ml @ 80 mls/hr TPN CONT IV Last administered on 08/14/19at 22:10; Start 08/14/19 at 22:00; Stop 08/15/19 at 21:59; Status DC Dexamethasone Sodium Phosphate (Decadron) 4 mg STK-MED ONCE .ROUTE ; Start 08/15/19 at 10:56; Stop 08/15/19 at 10:57; Status DC Ondansetron HCl (Zofran) 4 mg STK-MED ONCE .ROUTE ; Start 08/15/19 at 10:56; Stop 08/15/19 at 10:57; Status DC Rocuronium [place] (Zemuron) 50 mg STK-MED ONCE .ROUTE ; Start 08/15/19 at 10:56; Stop 08/15/19 at 10:57; Status DC Fentanyl Citrate (Fentanyl 2ml Vial) 100 mcg STK-MED ONCE .ROUTE ; Start 08/15/19 at 10:56; Stop 08/15/19 at 10:57; Status DC Bupivacaine HCl/ Epinephrine Bitart (Sensorcain-Epi 0.5%-1:239376 Mpf) 30 ml STK-MED ONCE .ROUTE Last administered on 08/15/19at 12:01; Start 08/15/19 at 10: 58; Stop 08/15/19 at 10:58; Status DC Cellulose (Surgicel Hemostat 2x14) 1 each STK-MED ONCE .ROUTE ; Start 08/15/19 at 10:58; Stop 08/15/19 at 10:59; Status DC Iohexol (Omnipaque 300 Mg/ml) 50 ml STK-MED ONCE .ROUTE ; Start 08/15/19 at 10:58; Stop 08/15/19 at 10:59; Status DC Cellulose (Surgicel Hemostat 4x8) 1 each STK-MED ONCE .ROUTE ; Start 08/15/19 at 10:58; Stop 08/15/19 at 10:59; Status DC Bisacodyl (Dulcolax Supp) 10 mg STK-MED ONCE .ROUTE ; Start 08/15/19 at 10:59; Stop 08/15/19 at 10:59; Status DC Heparin Sodium (Porcine) 1000 unit/Sodium Chloride 1,001 ml @ 1,001 mls/hr 1X ONCE IRR ; Start 08/15/19 at 12:00; Stop 08/15/19 at 12:59; Status DC Propofol 20 ml @ As Directed STK-MED ONCE IV ; Start 08/15/19 at 11:05; Stop 08/15/19 at 11:05; Status DC Sevoflurane (Ultane) 90 ml STK-MED ONCE IH ; Start 08/15/19 at 11:05; Stop 08/15/19 at 11:05; Status DC Sevoflurane (Ultane) 60 ml STK-MED ONCE IH ; Start 08/15/19 at 12:26; Stop 08/15/19 at 12:27; Status DC Propofol 20 ml @ As Directed STK-MED ONCE IV ; Start 08/15/19 at 12:26; Stop 08/15/19 at 12:27; Status DC Phenylephrine HCl (PHENYLEPHRINE in 0.9% NACL PF) 1 mg STK-MED ONCE IV ; Start 08/15/19 at 12:34; Stop 08/15/19 at 12:34; Status DC Heparin Sodium (Porcine) (Heparin Sodium) 5,000 unit Q12HR SQ Last administered on 08/24/19at 20:57; Start 08/15/19 at 21:00; Stop 08/25/19 at 09:59; Status DC Sodium Chloride (Normal Saline Flush) 3 ml QSHIFT PRN IV AFTER MEDS AND BLOOD DRAWS; Start 08/15/19 at 13:45 Naloxone HCl (Narcan) 0.4 mg PRN Q2MIN PRN IV SEE INSTRUCTIONS; Start 08/15/19 at 13:45 Sodium Chloride 1,000 ml @ 25 mls/hr Q24H IV Last administered on 09/06/19at 13 :37; Start 08/15/19 at 13:37 Naloxone HCl (Narcan) 0.4 mg PRN Q2MIN PRN IV SEE INSTRUCTIONS; Start 08/15/19 at 14:30; Status UNV Sodium Chloride 1,000 ml @ 25 mls/hr Q24H IV ; Start 08/15/19 at 14:30; Status UNV Hydromorphone HCl 30 ml @ 0 mls/hr CONT PRN PRN IV PER PROTOCOL Last administered on 08/20/19at 16:08; Start 08/15/19 at 14:30; Stop 08/22/19 at 08:55; Status DC Potassium Acetate 55 meq/Magnesium Sulfate 20 meq/ Calcium Gluconate 10 meq/ Multivitamins 10 ml/Chromium/ Copper/Manganese/ Seleni/Zn 0.5 ml/ Insulin Human Regular 35 unit/ Total Parenteral Nutrition/Amino Acids/Dextrose/ Fat Emulsion Intravenous 1,920 ml @ 80 mls/hr TPN CONT IV Last administered on 08/15/19at 22:01; Start 08/15/19 at 22:00; Stop 08/16/19 at 21:59; Status DC Bumetanide (Bumex) 2 mg [id number] IV Last administered on 08/19/19at 13:50; Start 08/16/19 at 14:00; Stop 08/20/19 at 14:10; Status DC Meropenem 1 gm/ Sodium Chloride 100 ml @ 200 mls/hr Q8HRS IV Last administered on 09/09/19at 05:53; Start 08/16/19 at 14:00; Stop 09/09/19 at 09:31; Status DC Potassium Acetate 55 meq/Magnesium Sulfate 20 meq/ Calcium Gluconate 10 meq/ Multivitamins 10 ml/Chromium/ Copper/Manganese/ Seleni/Zn 0.5 ml/ Insulin Human Regular 35 unit/ Total Parenteral Nutrition/Amino Acids/Dextrose/ Fat Emulsion Intravenous 1,920 ml @ 80 mls/hr TPN CONT IV Last administered on 08/16/19at 22:02; Start 08/16/19 at 22:00; Stop 08/17/19 at 21:59; Status DC Hydromorphone HCl (Dilaudid Standard BROOD STATION MANAGER) 12 mg STK-MED ONCE IV ; Start 08/15/19 at 14:35; Stop 08/16/19 at 13:53; Status DC Artificial Tears (Artificial Tears) 1 drop PRN Q15MIN PRN OU DRY EYE Last administered on 09/11/19at 11:15; Start 08/17/19 at 05:30 Hydromorphone HCl (Dilaudid Standard BROOD STATION MANAGER) 12 mg STK-MED ONCE IV ; Start 08/16/19 at 12:05; Stop 08/17/19 at 09:15; Status DC Potassium Acetate 65 meq/Magnesium Sulfate 20 meq/ Calcium Gluconate 10 meq/ Multivitamins 10 ml/Chromium/ Copper/Manganese/ Seleni/Zn 0.5 ml/ Insulin Human Regular 30 unit/ Total Parenteral Nutrition/Amino Acids/Dextrose/ Fat Emulsion Intravenous 1,920 ml @ 80 mls/hr TPN CONT IV Last administered on 08/17/19at 22:22; Start 08/17/19 at 22:00; Stop 08/18/19 at 21:59; Status DC Cyclobenzaprine HCl (Flexeril) 10 mg PRN Q6HRS PRN PO MUSCLE SPASMS; Start 08/18/19 at 10:45 Potassium Acetate 55 meq/Magnesium Sulfate 20 meq/ Calcium Gluconate 10 meq/ Multivitamins 10 ml/Chromium/ Copper/Manganese/ Seleni/Zn 0.5 ml/ Insulin Human Regular 30 unit/ Total Parenteral Nutrition/Amino Acids/Dextrose/ Fat Emulsion Intravenous 1,920 ml @ 80 mls/hr TPN CONT IV Last administered on 08/19/19at 01:00; Start 08/18/19 at 22:00; Stop 08/19/19 at 21:59; Status DC Magnesium Sulfate 50 ml @ 25 mls/hr 1X ONCE IV Last administered on 08/18/19at 17:18; Start 08/18/19 at 12:45; Stop 08/18/19 at 14:44; Status DC Potassium Chloride/Water 100 ml @ 100 mls/hr 1X ONCE IV Last administered on 08/19/19at 11:27; Start 08/19/19 at 12:00; Stop 08/19/19 at 12:59; Status DC Hydromorphone HCl (Dilaudid Standard BROOD STATION MANAGER) 12 mg STK-MED ONCE IV ; Start 08/17/19 at 10:50; Stop 08/19/19 at 11:02; Status DC Hydromorphone HCl (Dilaudid Standard BROOD STATION MANAGER) 12 mg STK-MED ONCE IV ; Start 08/18/19 at 13:47; Stop 08/19/19 at 11:03; Status DC Potassium Acetate 30 meq/Magnesium Sulfate 20 meq/ Calcium Gluconate 10 meq/ Multivitamins 10 ml/Chromium/ Copper/Manganese/ Seleni/Zn 0.5 ml/ Insulin Human Regular 30 unit/ Potassium Chloride 30 meq/ Total Parenteral Nutrition/Amino Acids/Dextrose/ Fat Emulsion Intravenous 1,920 ml @ 80 mls/hr TPN CONT IV Last administered on 08/19/19at 22:34; Start 08/19/19 at 22:00; Stop 08/20/19 at 21:59; Status DC Potassium Chloride/Water 100 ml @ 100 mls/hr Q1H IV Last administered on 08/20/19at 13:05; Start 08/20/19 at 07:00; Stop 08/20/19 at 10:59; Status DC Magnesium Sulfate 50 ml @ 25 mls/hr 1X ONCE IV Last administered on 08/20/19at 10:34; Start 08/20/19 at 10:30; Stop 08/20/19 at 12:29; Status DC Potassium Chloride 75 meq/ Magnesium Sulfate 20 meq/Calcium Gluconate 10 meq/ Multivitamins 10 ml/Chromium/ Copper/Manganese/ Seleni/Zn 0.5 ml/ Insulin Human Regular 30 unit/ Total Parenteral Nutrition/Amino Acids/Dextrose/ Fat Emulsion Intravenous 1,920 ml @ 80 mls/hr TPN CONT IV Last administered on 08/20/19at 21:51; Start 08/20/19 at 22:00; Stop 08/21/19 at 22:00; Status DC Potassium Chloride 75 meq/ Magnesium Sulfate 20 meq/Calcium Gluconate 10 meq/ Multivitamins 10 ml/Chromium/ Copper/Manganese/ Seleni/Zn 0.5 ml/ Insulin Human Regular 25 unit/ Total Parenteral Nutrition/Amino Acids/Dextrose/ Fat Emulsion Intravenous 1,920 ml @ 80 mls/hr TPN CONT IV Last administered on 08/21/19at 22:04; Start 08/21/19 at 22:00; Stop 08/22/19 at 21:59; Status DC Hydromorphone HCl (Dilaudid) 0.4 mg PRN Q4HRS PRN IVP PAIN Last administered on 08/22/19at 10:57; Start 08/22/19 at 09:00; Stop 08/22/19 at 18:59; Status DC Micafungin Sodium 100 mg/Dextrose 100 ml @ 100 mls/hr Q24H IV Last administered on 09/10/19at 10:33; Start 08/22/19 at 11:00 Daptomycin 485 mg/ Sodium Chloride 50 ml @ 100 mls/hr Q24H IV Last administered on 08/29/19at 13:10; Start 08/22/19 at 11:00; Stop 08/30/19 at 07:44; Status DC Potassium Chloride 75 meq/ Magnesium Sulfate 15 meq/Calcium Gluconate 8 meq/ Multivitamins 10 ml/Chromium/ Copper/Manganese/ Seleni/Zn 0.5 ml/ Insulin Human Regular 25 unit/ Total Parenteral Nutrition/Amino Acids/Dextrose/ Fat Emulsion Intravenous 1,920 ml @ 80 mls/hr TPN CONT IV Last administered on 08/22/19at 23:08; Start 08/22/19 at 22:00; Stop 08/23/19 at 21:59; Status DC Haloperidol Lactate (Haldol Inj) 3 mg 1X ONCE IVP Last administered on 08/22/19at 14:37; Start 08/22/19 at 14:30; Stop 08/22/19 at 14:31; Status DC Hydromorphone HCl (Dilaudid) 1 mg PRN Q4HRS PRN IVP PAIN Last administered on 09/05/19at 06:25; Start 08/22/19 at 19:00; Stop 09/05/19 at 17:10; Status DC Potassium Chloride 75 meq/ Magnesium Sulfate 15 meq/Calcium Gluconate 8 meq/ Multivitamins 10 ml/Chromium/ Copper/Manganese/ Seleni/Zn 0.5 ml/ Insulin Human Regular 20 unit/ Total Parenteral Nutrition/Amino Acids/Dextrose/ Fat Emulsion Intravenous 1,920 ml @ 80 mls/hr TPN CONT IV Last administered on 08/23/19at 22:10; Start 08/23/19 at 22:00; Stop 08/24/19 at 21:59; Status DC Lidocaine HCl (Buffered Lidocaine 1%) 3 ml STK-MED ONCE .ROUTE ; Start 08/24/19 at 11:31; Stop 08/24/19 at 11:31; Status DC Lidocaine HCl (Buffered Lidocaine 1%) 3 ml STK-MED ONCE .ROUTE ; Start 08/24/19 at 12:28; Stop 08/24/19 at 12:29; Status DC Lidocaine HCl (Buffered Lidocaine 1%) 6 ml 1X ONCE INJ Last administered on 08/24/19at 12:53; Start 08/24/19 at 12:45; Stop 08/24/19 at 12:46; Status DC Potassium Chloride 75 meq/ Magnesium Sulfate 15 meq/Calcium Gluconate 8 meq/ Multivitamins 10 ml/Chromium/ Copper/Manganese/ Seleni/Zn 0.5 ml/ Insulin Human Regular 20 unit/ Total Parenteral Nutrition/Amino Acids/Dextrose/ Fat Emulsion Intravenous 1,920 ml @ 80 mls/hr TPN CONT IV Last administered on 08/24/19at 22:00; Start 08/24/19 at 22:00; Stop 08/25/19 at 21:59; Status DC Potassium Chloride 75 meq/ Magnesium Sulfate 15 meq/Calcium Gluconate 8 meq/ Mul tivitamins 10 ml/Chromium/ Copper/Manganese/ Seleni/Zn 0.5 ml/ Insulin Human Regular 15 unit/ Total Parenteral Nutrition/Amino Acids/Dextrose/ Fat Emulsion Intravenous 1,920 ml @ 80 mls/hr TPN CONT IV Last administered on 08/25/19at 22:28; Start 08/25/19 at 22:00; Stop 08/26/19 at 21:59; Status DC Vecuronium [place] (Norcuron Bolus) 6 mg PRN Q6HRS PRN IV VENT ASYNCHRONY; Start 08/25/19 at 19:15; Stop 08/25/19 at 19:35; Status DC Bumetanide (Bumex) 2 mg 1X ONCE IV Last administered on 08/25/19at 22:09; Start 08/25/19 at 19:45; Stop 08/25/19 at 19:46; Status DC Lidocaine HCl (Buffered Lidocaine 1%) 3 ml STK-MED ONCE .ROUTE ; Start 08/26/19 at 07:59; Stop 08/26/19 at 07:59; Status DC Midazolam HCl (Versed) 5 mg STK-MED ONCE .ROUTE ; Start 08/26/19 at 08:36; Stop 08/26/19 at 08:36; Status DC Fentanyl Citrate (Fentanyl 5ml Vial) 250 mcg STK-MED ONCE .ROUTE ; Start 08/26/19 at 08:36; Stop 08/26/19 at 08:37; Status DC Lidocaine HCl (Buffered Lidocaine 1%) 3 ml 1X ONCE IJ Last administered on 08/26/19at 09:30; Start 08/26/19 at 09:15; Stop 08/26/19 at 09:16; Status DC Midazolam HCl (Versed) 5 mg 1X ONCE IV Last administered on 08/26/19at 09:30; S tart 08/26/19 at 09:15; Stop 08/26/19 at 09:16; Status DC Fentanyl Citrate (Fentanyl 5ml Vial) 250 mcg 1X ONCE IV Last administered on 08/26/19at 09:30; Start 08/26/19 at 09:15; Stop 08/26/19 at 09:16; Status DC Bumetanide (Bumex) 2 mg DAILY IV Last administered on 09/05/19at 08:07; Start 08/26/19 at 10:00; Stop 09/05/19 at 17:15; Status DC Potassium Chloride 75 meq/ Magnesium Sulfate 15 meq/ Multivitamins 10 ml/Chromium/ Copper/Manganese/ Seleni/Zn 0.5 ml/ Insulin Human Regular 15 unit/ Total Parenteral Nutrition/Amino Acids/Dextrose/ Fat Emulsion Intravenous 1,920 ml @ 80 mls/hr TPN CONT IV Last administered on 08/26/19at 21:59; Start 08/26/19 at 22:00; Stop 08/27/19 at 21:59; Status DC Metoclopramide HCl (Reglan Vial) 10 mg PRN Q3HRS PRN IVP NAUSEA/VOMITING-3rd choice Last administered on 09/01/19at 04:25; Start 08/27/19 at 16:45 Potassium Chloride 75 meq/ Magnesium Sulfate 15 meq/ Multivitamins 10 ml/Chromium/ Copper/Manganese/ Seleni/Zn 0.5 ml/ Insulin Human Regular 15 unit/ Total Parenteral Nutrition/Amino Acids/Dextrose/ Fat Emulsion Intravenous 1,920 ml @ 80 mls/hr TPN CONT IV Last administered on 08/27/19at 22:41; Start 08/27/19 at 22:00; Stop 08/28/19 at 21:59; Status DC Magnesium Sulfate 50 ml @ 25 mls/hr 1X ONCE IV Last administered on 08/28/19at 10:44; Start 08/28/19 at 09:00; Stop 08/28/19 at 10:59; Status DC Potassium Chloride/Water 100 ml @ 100 mls/hr 1X ONCE IV Last administered on 08/28/19at 09:37; Start 08/28/19 at 09:00; Stop 08/28/19 at 09:59; Status DC Duloxetine HCl (Cymbalta) 30 mg DAILY PO Last administered on 08/29/19at 09:48; Start 08/28/19 at 14:00; Stop 08/31/19 at 10:25; Status DC Potassium Chloride 80 meq/ Magnesium Sulfate 20 meq/ Multivitamins 10 ml/Chromium/ Copper/Manganese/ Seleni/Zn 0.5 ml/ Insulin Human Regular 15 unit/ Total Parenteral Nutrition/Amino Acids/Dextrose/ Fat Emulsion Intravenous 1,920 ml @ 80 mls/hr TPN CONT IV Last administered on 08/28/19at 21:42; Start 08/28/19 at 22:00; Stop 08/29/19 at 21:59; Status DC Potassium Chloride 80 meq/ Magnesium Sulfate 20 meq/ Multivitamins 10 ml/Chromium/ Copper/Manganese/ Seleni/Zn 0.5 ml/ Insulin Human Regular 15 unit/ Total Parenteral Nutrition/Amino Acids/Dextrose/ Fat Emulsion Intravenous 1,920 ml @ 80 mls/hr TPN CONT IV Last administered on 08/29/19at 22:20; Start 08/29/19 at 22:00; Stop 08/30/19 at 21:59; Status DC Lidocaine HCl (Buffered Lidocaine 1%) 3 ml STK-MED ONCE .ROUTE ; Start 08/30/19 at 09:54; Stop 08/30/19 at 09:55; Status DC Hydromorphone HCl (Dilaudid Standard [employer]) 12 mg STK-MED ONCE IV ; Start 08/19/19 at 15:50; Stop 08/30/19 at 11:24; Status DC Potassium Chloride 80 meq/ Magnesium Sulfate 20 meq/ Multivitamins 10 ml/Chromium/ Copper/Manganese/ Seleni/Zn 0.5 ml/ Insulin Human Regular 15 unit/ Total Parenteral Nutrition/Amino Acids/Dextrose/ Fat Emulsion Intravenous 1,920 ml @ 80 mls/hr TPN CONT IV Last administered on 08/30/19at 21:40; Start 08/30/19 at 22:00; Stop 08/31/19 at 21:59; Status DC Lidocaine HCl (Buffered Lidocaine 1%) 6 ml 1X ONCE INJ Last administered on 08/30/19at 14:15; Start 08/30/19 at 14:15; Stop 08/30/19 at 14:16; Status DC Potassium Chloride 80 meq/ Magnesium Sulfate 20 meq/ Multivitamins 10 ml/Chromiu m/ Copper/Manganese/ Seleni/Zn 1 ml/ Insulin Human Regular 15 unit/ Total Parenteral Nutrition/Amino Acids/Dextrose/ Fat Emulsion Intravenous 1,920 ml @ 80 mls/hr TPN CONT IV Last administered on 08/31/19at 22:04; Start 08/31/19 at 22:00; Stop 09/01/19 at 21:59; Status DC Potassium Chloride/Water 100 ml @ 100 mls/hr 1X ONCE IV Last administered on 09/01/19at 11:34; Start 09/01/19 at 11:00; Stop 09/01/19 at 11:59; Status DC Potassium Chloride 90 meq/ Magnesium Sulfate 20 meq/ Multivitamins 10 ml/Chromi um/ Copper/Manganese/ Seleni/Zn 1 ml/ Insulin Human Regular 15 unit/ Total Parenteral Nutrition/Amino Acids/Dextrose/ Fat Emulsion Intravenous 1,920 ml @ 80 mls/hr TPN CONT IV Last administered on 09/01/19at 22:57; Start 09/01/19 at 22:00; Stop 09/02/19 at 21:59; Status DC Potassium Chloride 90 meq/ Magnesium Sulfate 20 meq/ Multivitamins 10 ml/Chromium/ Copper/Manganese/ Seleni/Zn 1 ml/ Insulin Human Regular 15 unit/ Total Parenteral Nutrition/Amino Acids/Dextrose/ Fat Emulsion Intravenous 1,920 ml @ 80 mls/hr TPN CONT IV Last administered on 09/02/19at 22:48; Start 09/02/19 at 22:00; Stop 09/03/19 at 21:59; Status DC Potassium Chloride 90 meq/ Magnesium Sulfate 20 meq/ Multivitamins 10 ml/Chromium/ Copper/Manganese/ Seleni/Zn 1 ml/ Insulin Human Regular 15 unit/ Total Parenteral Nutrition/Amino Acids/Dextrose/ Fat Emulsion Intravenous 1,890 ml @ 78.75 mls/ hr TPN CONT IV Last administered on 09/03/19at 22:15; Start 09/03/19 at 22:00; Stop 09/04/19 at 21:59; Status DC Linezolid/Dextrose 300 ml @ 300 mls/hr Q12HR IV Last administered on 09/06/19at 21:08; Start 09/04/19 at 09:00; Stop 09/07/19 at 08:11; Status DC Daptomycin 450 mg/ Sodium Chloride 50 ml @ 100 mls/hr Q24H IV Last administered on 09/07/19at 09:25; Start 09/04/19 at 09:00; Stop 09/08/19 at 08:30; Status DC Potassium Chloride 90 meq/ Magnesium Sulfate 20 meq/ Multivitamins 10 ml/Chromium/ Copper/Manganese/ Seleni/Zn 1 ml/ Insulin Human Regular 15 unit/ Total Parenteral Nutrition/Amino Acids/Dextrose/ Fat Emulsion Intravenous 1,890 ml @ 78.75 mls/ hr TPN CONT IV Last administered on 09/04/19at 21:34; Start 09/04/19 at 22:00; Stop 09/05/19 at 21:59; Status DC Lorazepam (Ativan Inj) 2 mg STK-MED ONCE .ROUTE ; Start 09/04/19 at 14:58; Stop 09/04/19 at 14:58; Status DC Metoprolol Tartrate (Lopressor Vial) 5 mg 1X ONCE IVP Last administered on 09/04/19at 15:31; Start 09/04/19 at 15:15; Stop 09/04/19 at 15:16; Status DC Lorazepam (Ativan Inj) 2 mg 1X ONCE IVP Last administered on 09/04/19at 15:30; Start 09/04/19 at 15:15; Stop 09/04/19 at 15:16; Status DC Enoxaparin Sodium (Lovenox 40mg Syringe) 40 mg Q24H SQ Last administered on 09/10/19at 17:50; Start 09/04/19 at 17:00 Lorazepam (Ativan Inj) 1 mg PRN Q4HRS PRN IVP ANXIETY / AGITATION MILD-MOD Last administered on 09/10/19at 04:21; Start 09/04/19 at 19:15 Lorazepam (Ativan Inj) 2 mg PRN Q4HRS PRN IVP ANXIETY / AGITATION SEVERE Last administered on 09/05/19at 22:20; Start 09/04/19 at 19:15 Fentanyl Citrate (Fentanyl 2ml Vial) 50 mcg PRN Q4HRS PRN IVP SEVERE PAIN Last administered on 09/11/19at 11:16; Start 09/05/19 at 13:15 Fentanyl Citrate (Fentanyl 2ml Vial) 25 mcg PRN Q4HRS PRN IVP MODERATE PAIN Last administered on 09/11/19at 06:36; Start 09/05/19 at 13:15 Potassium Chloride 90 meq/ Magnesium Sulfate 20 meq/ Multivitamins 10 ml/Chromium/ Copper/Manganese/ Seleni/Zn 1 ml/ Insulin Human Regular 15 unit/ Total Parenteral Nutrition/Amino Acids/Dextrose/ Fat Emulsion Intravenous 1,890 ml @ 78.75 mls/ hr TPN CONT IV Last administered on 09/05/19at 22:18; Start 09/05/19 at 22:00; Stop 09/06/19 at 21:59; Status DC Furosemide (Lasix) 40 mg 1X ONCE IVP Last administered on 09/05/19at 21:51; Start 09/05/19 at 21:45; Stop 09/05/19 at 21:48; Status DC Albumin Human 100 ml @ 100 mls/hr 1X PRN PRN IV SEE COMMENTS; Start 09/06/19 at 01:30 Furosemide (Lasix) 40 mg [id number] IVP Last administered on 09/11/19at 11:16; Start 09/06/19 at 14:00 Potassium Chloride 90 meq/ Magnesium Sulfate 20 meq/ Multivitamins 10 ml/Chromium/ Copper/Manganese/ Seleni/Zn 1 ml/ Insulin Human Regular 15 unit/ Total Parenteral Nutrition/Amino Acids/Dextrose/ Fat Emulsion Intravenous 1,800 ml @ 75 mls/hr TPN CONT IV Last administered on 09/06/19at 22:31; Start 09/06/19 at 22:00; Stop 09/07/19 at 21:59; Status DC Potassium Chloride 90 meq/ Magnesium Sulfate 20 meq/ Multivitamins 10 ml/Chromium/ Copper/Manganese/ Seleni/Zn 1 ml/ Insulin Human Regular 15 unit/ Total Parenteral Nutrition/Amino Acids/Dextrose/ Fat Emulsion Intravenous 1,800 ml @ 75 mls/hr TPN CONT IV Last administered on 09/07/19at 22:28; Start 09/07/19 at 22:00; Stop 09/08/19 at 21:59; Status DC Potassium Chloride 110 meq/ Magnesium Sulfate 20 meq/ Multivitamins 10 ml/Chromium/ Copper/Manganese/ Seleni/Zn 1 ml/ Insulin Human Regular 15 unit/ Total Parenteral Nutrition/Amino Acids/Dextrose/ Fat Emulsion Intravenous 1,800 ml @ 75 mls/hr TPN CONT IV Last administered on 09/08/19at 22:01; Start 09/08/19 at 22:00; Stop 09/09/19 at 21:59; Status DC Saliva Substitute (Biotene Moisturizing Mouth) 2 spray PRN Q15MIN PRN PO DRY MOUTH; Start 09/08/19 at 11:00 Potassium Chloride 110 meq/ Magnesium Sulfate 20 meq/ Multivitamins 10 ml/Chromium/ Copper/Manganese/ Seleni/Zn 1 ml/ Insulin Human Regular 15 unit/ Total Parenteral Nutrition/Amino Acids/Dextrose/ Fat Emulsion Intravenous 1,800 ml @ 75 mls/hr TPN CONT IV Last administered on 09/09/19at 22:21; Start 09/09/19 at 22:00; Stop 09/10/19 at 21:59; Status DC Potassium Chloride 110 meq/ Magnesium Sulfate 20 meq/ Multivitamins 10 ml/Chromium/ Copper/Manganese/ Seleni/Zn 1 ml/ Insulin Human Regular 15 unit/ Total Parenteral Nutrition/Amino Acids/Dextrose/ Fat Emulsion Intravenous 1,800 ml @ 75 mls/hr TPN CONT IV Last administered on 09/10/19at 22:04; Start 09/10/19 at 22:00; Stop 09/11/19 at 21:59 Potassium Chloride 110 meq/ Magnesium Sulfate 20 meq/ Multivitamins 10 ml/[employer] mium/ Copper/Manganese/ Seleni/Zn 1 ml/ Insulin Human Regular 15 unit/ Total Parenteral Nutrition/Amino Acids/Dextrose/ Fat Emulsion Intravenous 1,800 ml @ 75 mls/hr TPN CONT IV ; Start 09/11/19 at 22:00; Stop 09/12/19 at 21:59 Active Scripts Active Reported Bisoprolol Fumarate 5 Mg Tablet 10 Mg PO DAILY Vitals/I & O Vital Sign - Last 24 Hours 09/10/19 09/10/19 09/10/19 09/10/19 12:00 12:00 13:00 14:00 Temp 98.9 98.9 Pulse 130 128 115 Resp 22 20 17 B/P (MAP) 128/63 (84) 145/66 (92) 116/66 (83) Pulse Ox 95 97 100 O2 Delivery Trach Collar Tracheal Collar Tracheal Collar Tracheal Collar O2 Flow Rate 8.0 8.0 8.0 8.0 09/10/19 09/10/19 09/10/19 09/10/19 15:00 16:00 16:00 17:00 Temp 98.7 98.7 Pulse 108 118 124 Resp 20 24 B/P (MAP) 115/60 (78) 168/117 (134) Pulse Ox 99 98 99 O2 Delivery Tracheal Collar Trach Collar Tracheal Collar Tracheal Collar O2 Flow Rate 8.0 8.0 8.0 8.0 09/10/19 09/10/19 09/10/19 09/10/19 17:51 18:00 18:21 19:00 Pulse 116 100 Resp 25 25 B/P (MAP) 126/66 (86) 120/66 (84) Pulse Ox 100 100 100 100 O2 Delivery Tracheal Collar Tracheal Collar Tracheal Collar Tracheal Collar O2 Flow Rate 8.0 8.0 8.0 09/10/19 09/10/19 09/10/19 09/10/19 20:00 20:00 21:00 22:00 Temp 98.7 98.7 Pulse 107 87 95 Resp 20 23 21 B/P (MAP) 122/56 (78) 87/46 (60) 98/51 (67) Pulse Ox 98 100 100 O2 Delivery Trach Collar Tracheal Collar Tracheal Collar Tracheal Collar O2 Flow Rate 8.0 8.0 8.0 8.0 09/10/19 09/10/19 09/10/19 09/11/19 22:40 23:00 23:10 00:00 Temp 96.7 96.7 Pulse 102 97 Resp 28 23 B/P (MAP) 107/63 (78) 101/54 (70) Pulse Ox 95 98 98 97 O2 Delivery Tracheal Collar Tracheal Collar Tracheal Collar Tracheal Collar O2 Flow Rate 8.0 8.0 09/11/19 09/11/19 09/11/19 09/11/19 00:00 01:00 02:00 03:00 Pulse 95 95 92 Resp 24 20 B/P (MAP) 89/55 (66) 101/48 (65) 106/56 (73) Pulse Ox 99 98 100 O2 Delivery Trach Collar Tracheal Collar Tracheal Collar Tracheal Collar O2 Flow Rate 8.0 8.0 8.0 8.0 09/11/19 09/11/19 09/11/19 09/11/19 04:00 04:00 05:00 06:00 Temp 97.5 97.5 Pulse 93 87 92 Resp 23 B/P (MAP) 100/49 (66) 96/52 (67) 108/59 (75) Pulse Ox 100 99 98 O2 Delivery Tracheal Collar Trach Collar Tracheal Collar Tracheal Collar O2 Flow Rate 8.0 8.0 8.0 8.0 09/11/19 09/11/19 09/11/19 09/11/19 06:36 07:00 07:05 08:00 Pulse 89 Resp 22 21 B/P (MAP) 98/62 (74) Pulse Ox 99 99 99 O2 Delivery Tracheal Collar Tracheal Collar Tracheal Collar Trach Collar O2 Flow Rate 8.0 8.0 8.0 09/11/19 09/11/19 08:00 11:16 Pulse 92 Resp 23 22 B/P (MAP) 96/54 (68) Pulse Ox 98 99 O2 Delivery Tracheal Collar Tracheal Collar O2 Flow Rate 8.0 8.0 Intake and Output 09/10/19 09/10/19 09/11/19 15:00 23:00 07:00 Intake Total 100 ml 845 ml 1175.9 ml Output Total 1080 ml 1415 ml 460 ml Balance -980 ml -570 ml 715.9 ml Hemodynamically unstable?: No Is patient in severe pain?: No Is NPO status required?: Yes GREG HERRERA MD September 11, 2019 11:31
[2019-09-11 11:44] LABS: HEMATOCRIT 25.5 % (36.0-47.0); HEMOGLOBIN 8.5 g/dL (12.0-15.5); RED BLOOD COUNT 2.94 x10^6/uL (3.50-5.40)
--- NOTE | 2019-09-11 11:53 | PDOC ---
PULMONARY PROGRESS NOTES Subjective alert, stronger, able to cough up secretion, tm, 30%, small ett secretion, Patient intubated on 07/10 , s/p trach 07/24, Vitals Vital Signs Date Time Temp Pulse Resp B/P (MAP) Pulse Ox O2 Delivery O2 Flow Rate FiO2 09/11/19 11:16 22 99 Tracheal Collar 8.0 09/11/19 08:00 92 96/54 (68) 09/11/19 04:00 97.5 97.5 ROS: No Chest Pain, No Abdominal Pain, No Increase Cough General: Alert, No acute distress HEENT: Other (nc at perrl neck trach site ok no lad no thyromegaly) Lungs: Wheezing, Other (decrease bs) Cardiovascular: S1, S2 Abdomen: Soft, Non-tender, Other (distended) Neuro Exam: Alert Extremities: Other (+3 generalized edema ) Skin: Warm, Dry Labs Laboratory Tests Test 09/09/19 18:00 09/10/19 00:29 09/10/19 06:06 09/10/19 17:53 Glucose (Fingerstick) 155 mg/dL (70-99) 144 mg/dL (70-99) 163 mg/dL (70-99) 140 mg/dL (70-99) Test 09/10/19 23:53 09/11/19 05:46 09/11/19 11:25 Glucose (Fingerstick) 135 mg/dL (70-99) 150 mg/dL (70-99) White Blood Count 16.0 x10^3/uL (4.0-11.0) Red Blood Count 2.94 x10^6/uL (3.50-5.40) Hemoglobin 8.5 g/dL (12.0-15.5) Hematocrit 25.5 % (36.0-47.0) Mean Corpuscular Volume 87 fL (79-100) Mean Corpuscular Hemoglobin 29 pg (25-35) Mean Corpuscular Hemoglobin Concent 34 g/dL (31-37) Red Cell Distribution Width 19.0 % (11.5-14.5) Platelet Count 317 x10^3/uL (140-400) Laboratory Tests Test 09/10/19 17:53 09/10/19 23:53 09/11/19 05:46 09/11/19 11:25 Glucose (Fingerstick) 140 mg/dL (70-99) 135 mg/dL (70-99) 150 mg/dL (70-99) White Blood Count 16.0 x10^3/uL (4.0-11.0) Red Blood Count 2.94 x10^6/uL (3.50-5.40) Hemoglobin 8.5 g/dL (12.0-15.5) Hematocrit 25.5 % (36.0-47.0) Mean Corpuscular Volume 87 fL (79-100) Mean Corpuscular Hemoglobin 29 pg (25-35) Mean Corpuscular Hemoglobin Concent 34 g/dL (31-37) Red Cell Distribution Width 19.0 % (11.5-14.5) Platelet Count 317 x10^3/uL (140-400) Medications Active Scripts Medications Dose Route/Sig Max Daily Dose Days Date Category Bisoprolol Fumarate 5 Mg Tablet 10 Mg PO DAILY 07/04/19 Reported Comments CXR reviewed. Impression . IMPRESSION: 1. Acute hypoxemic respiratory failure secondary to ARDS status post trach, 2. Gallstone pancreatitis 3. Severe metabolic acidosis.stable 4. Acute kidney injury-stable, Off HD-- continue to improve 5. Acute gallstone pancreatitis. 6. Hypoalbuminemia. 7. Moderate persistent effusions, s/p left thora 08/29 8. Fever- Per ID, per surgery--resolved 9. Chronic anemia 10. Covid 19 testing negative 11. Moderate to large ascites-S/P paracentisis 12.S/P paracentisis with 4 liters removed on 08/03/19 13. S/P IR drain placement on 08/26/2019 Plan . Continue current support cont trach pmv capping as tolerated Lasix monitor k, cr s/p thoracentesis, 08/29, 3 litres removed cap trach as tolerated Follow surgery recs-- S/P 3 drain placed in IR on 08/26/2019 Follow ID recs for ABX Follow nephrology recs Continue TPN DVT/GI PPX: heparin SQ/ protonix D/W RN and RT, pt CODE:FULL TEN WHITFIELD MD September 11, 2019 11:53
[2019-09-11 12:11] LABS: ALBUMIN 2.4 g/dL (3.4-5.0); ALBUMIN/GLOBULIN RATIO 0.5 (1.0-1.7); CALCIUM 10.1 mg/dL (8.5-10.1); CREATININE 0.8 mg/dL (0.6-1.0); GFR 76.2; POTASSIUM 4.8 mmol/L (3.5-5.1); TOTAL BILIRUBIN 0.7 mg/dL (0.2-1.0); TOTAL PROTEIN 6.9 g/dL (6.4-8.2)
--- NOTE | 2019-09-11 12:28 | NUR ---
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, 8 inches Weight: 78.6 kg Current diet: NPO LABS: Sodium: 136 Potassium: 4.8 Chloride: 98 Calcium: 10.1 Corrected Calcium: 11.38 Magnesium: 2.1 CO2: 34 SCr: 0.8 Glucose: 150, 131 Albumin: 2.4 AST: 34 ALT: 25 TPN FORMULA: TPN TYPE: Central Continuous AMINO ACIDS: 70 gm DEXTROSE: 250 gm LIPIDS: 30 gm POTASSIUM CHLORIDE: 110 mEq MAGNESIUM: 20 mEq INSULIN: 15 units MULTIPLE VITAMIN: 10 ml TRACE ELEMENTS: 1 ml TPN PLAN: -Electrolytes stable, no changes to TPN. -CMP, mag, phos, TG tomorrow per protocol. R: Continue TPN @ 75 ml/hr and above formula. Will monitor electrolytes, glucose, and tolerance to TPN. SHARON CHRISTIANSON [facility], 09/11/19 [id number]
[2019-09-11] MEDS: MICAFUNGIN 100 MG in IV DEXTROSE 5% 100ML 100 ML IV SCH (12:58)
[2019-09-11] MEDS: IV NORMAL SALINE 1000ML BAG 1,000 ML IV SCH (13:04)
--- NOTE | 2019-09-11 13:06 | PDOC ---
SURGICAL PROGRESS NOTE Subjective Steven for Dr Servin awake, alert, asking for Jell-o and water Vital Signs Vital Signs Date Time Temp Pulse Resp B/P (MAP) Pulse Ox O2 Delivery O2 Flow Rate FiO2 09/11/19 12:00 Trach Collar 8.0 09/11/19 11:45 22 99 09/11/19 08:00 92 96/54 (68) 09/11/19 04:00 97.5 97.5 I&O Intake and Output 09/11/19 07:00 Intake Total 2120.9 ml Output Total 2955 ml Balance -834.1 ml Intake Oral 0 ml IV Total 2120.9 ml Output Urine Total 2580 ml Gastric Drainage Total 100 ml Drainage Total 275 ml # Bowel Movements 1 General: Alert, No acute distress HEENT: Other (trach in place) Abdomen: Soft Labs Laboratory Tests Test 09/09/19 18:00 09/10/19 00:29 09/10/19 06:06 09/10/19 17:53 Glucose (Fingerstick) 155 mg/dL (70-99) 144 mg/dL (70-99) 163 mg/dL (70-99) 140 mg/dL (70-99) Test 09/10/19 23:53 09/11/19 05:46 09/11/19 11:25 Glucose (Fingerstick) 135 mg/dL (70-99) 150 mg/dL (70-99) White Blood Count 16.0 x10^3/uL (4.0-11.0) Red Blood Count 2.94 x10^6/uL (3.50-5.40) Hemoglobin 8.5 g/dL (12.0-15.5) Hematocrit 25.5 % (36.0-47.0) Mean Corpuscular Volume 87 fL (79-100) Mean Corpuscular Hemoglobin 29 pg (25-35) Mean Corpuscular Hemoglobin Concent 34 g/dL (31-37) Red Cell Distribution Width 19.0 % (11.5-14.5) Platelet Count 317 x10^3/uL (140-400) Sodium Level 136 mmol/L (136-145) Potassium Level 4.8 mmol/L (3.5-5.1) Chloride Level 98 mmol/L (98-107) Carbon Dioxide Level 34 mmol/L (21-32) Anion Gap 4 (6-14) Blood Urea Nitrogen 23 mg/dL (7-20) Creatinine 0.8 mg/dL (0.6-1.0) Estimated GFR (Cockcroft-Gault) 76.2 BUN/Creatinine Ratio 29 (6-20) Glucose Level 131 mg/dL (70-99) Calcium Level 10.1 mg/dL (8.5-10.1) Total Bilirubin 0.7 mg/dL (0.2-1.0) Aspartate Amino Transf (AST/SGOT) 34 U/L (15-37) Alanine Aminotransferase (ALT/SGPT) 25 U/L (14-59) Alkaline Phosphatase 131 U/L (46-116) Total Protein 6.9 g/dL (6.4-8.2) Albumin 2.4 g/dL (3.4-5.0) Albumin/Globulin Ratio 0.5 (1.0-1.7) Laboratory Tests Test 09/10/19 17:53 09/10/19 23:53 09/11/19 05:46 09/11/19 11:25 Glucose (Fingerstick) 140 mg/dL (70-99) 135 mg/dL (70-99) 150 mg/dL (70-99) White Blood Count 16.0 x10^3/uL (4.0-11.0) Red Blood Count 2.94 x10^6/uL (3.50-5.40) Hemoglobin 8.5 g/dL (12.0-15.5) Hematocrit 25.5 % (36.0-47.0) Mean Corpuscular Volume 87 fL (79-100) Mean Corpuscular Hemoglobin 29 pg (25-35) Mean Corpuscular Hemoglobin Concent 34 g/dL (31-37) Red Cell Distribution Width 19.0 % (11.5-14.5) Platelet Count 317 x10^3/uL (140-400) Sodium Level 136 mmol/L (136-145) Potassium Level 4.8 mmol/L (3.5-5.1) Chloride Level 98 mmol/L (98-107) Carbon Dioxide Level 34 mmol/L (21-32) Anion Gap 4 (6-14) Blood Urea Nitrogen 23 mg/dL (7-20) Creatinine 0.8 mg/dL (0.6-1.0) Estimated GFR (Cockcroft-Gault) 76.2 BUN/Creatinine Ratio 29 (6-20) Glucose Level 131 mg/dL (70-99) Calcium Level 10.1 mg/dL (8.5-10.1) Total Bilirubin 0.7 mg/dL (0.2-1.0) Aspartate Amino Transf (AST/SGOT) 34 U/L (15-37) Alanine Aminotransferase (ALT/SGPT) 25 U/L (14-59) Alkaline Phosphatase 131 U/L (46-116) Total Protein 6.9 g/dL (6.4-8.2) Albumin 2.4 g/dL (3.4-5.0) Albumin/Globulin Ratio 0.5 (1.0-1.7) Problem List Problems Medical Problems: (1) Acute pancreatitis Status: Acute (2) Cholelithiasis Status: Acute Assessment/Plan gall stone pancreatitis gradual improvement needs aspiration precautions for po MARV WYNNE MD September 11, 2019 13:06
[2019-09-11] MEDS: ENOXAPARIN 40 MG/0.4 ML SYRINGE. SQ SCH (16:42)
--- NOTE | 2019-09-11 20:11 | NUR ---
Patient taken outside in recliner. Stayed outside in recliner for 20+ minutes. Patient bathed and stayed in recliner for multiple hours. Order received from Dr. Harris to clamp NG tube. NG clamped for 1.5 hours and patient started having small amount of green vomit, NG tube put to LIS once again and thin, green stomach contents flowed into canister. Patient left on LIS at this time-- less nauseated. Patient's BF, Jamaal, came to visit this evening. Anxiety at much better level this shift than previous. See assessments, VS.
[2019-09-11] MEDS ORDERED: TOTAL PARENTERAL NUTRITION IV SCH ×8 (22:00)
[2019-09-11] MEDS ORDERED: [UNRECOGNIZED DRUG - OTHER] IV SCH ×8 (22:00)
[2019-09-11] MEDS ORDERED: DEXTROSE 70% IV SCH ×8 (22:00)
[2019-09-11] MEDS ORDERED: AMINO ACID IV SCH ×8 (22:00)
[2019-09-12] VITALS (24 sets, daily range): BP systolic 90–144; BP diastolic 43–94
[2019-09-12] MEDS: ONDANSETRON PF 4 MG/2 ML VIAL. IV PRN ×4 (01:36→20:19)
[2019-09-12] MEDS: fentaNYL PF VIAL 100 MCG/2 ML VIAL IVP PRN ×5 (03:27→22:21)
[2019-09-12] MEDS: INSULIN LISPRO 300 UNITS/3 ML VIAL. SQ SCH ×4 (06:00→23:56)
[2019-09-12 07:28] LABS: ALBUMIN 2.3 g/dL (3.4-5.0); ALBUMIN/GLOBULIN RATIO 0.5 (1.0-1.7); CREATININE 0.8 mg/dL (0.6-1.0); GFR 76.2; MAGNESIUM 2.3 mg/dL (1.8-2.4); PHOSPHORUS 5.2 mg/dL (2.6-4.7); TOTAL BILIRUBIN 0.7 mg/dL (0.2-1.0); TOTAL PROTEIN 6.9 g/dL (6.4-8.2)
--- NOTE | 2019-09-12 08:03 | PDOC ---
Infectious Disease Note Subjective: Subjective Trach shield, No fevers last 24 hrs Vital Signs: Vital Signs Vital Signs Date Time Temp Pulse Resp B/P (MAP) Pulse Ox O2 Delivery O2 Flow Rate FiO2 09/12/19 07:40 107 22 111/64 (80) 95 Tracheal Collar 8.0 09/12/19 04:00 99.4 99.4 Physical Exam: PHYSICAL EXAM GENERAL: Propped up in bed, resting quietly HEENT: Oral cavity clear, NGT NECK: Trach shield LUNGS: Clear anteriorly, no accessory muscle use HEART: S1, S2, regular ABDOMEN: mod distention, hypoactive BS, tender, + drains x 3 : Lind (08/01) EXTREMITIES: Generalized edema, improving, no cyanosis, SCDs bilaterally SKIN: Warm and dry. No generalized rash. 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 RUE-PICC (08/17) clean Medications: Inpatient Meds: Current Medications Medications (Trade) Dose Ordered Sig/Yvon Start Time Stop Time Status Last Admin Dose Admin Acetaminophen (Tylenol Supp) 650 mg PRN Q6HRS PRN 07/12/19 10:30 08/23/19 09:12 650 MG Acetaminophen (Tylenol) 650 mg PRN Q6HRS PRN 07/09/19 03:36 08/31/19 10:25 DC 08/04/19 19:56 650 MG Albumin Human 100 ml @ 100 mls/hr 1X PRN PRN 09/06/19 01:30 Albuterol Sulfate (Ventolin Neb Soln) 2.5 mg 1X ONCE 07/05/19 22:30 07/05/19 22:31 DC 07/06/19 00:56 2.5 MG Alteplase, Recombinant (Cathflo For Central Catheter Clearance) 1 mg 1X ONCE 08/12/19 10:45 08/12/19 10:46 DC 08/12/19 11:44 1 MG Amino Acids/ Glycerin/ Electrolytes 1,000 ml @ 75 mls/hr [id number] 08/08/19 21:15 UNV Artificial Tears (Artificial Tears) 1 drop PRN Q15MIN PRN 08/17/19 05:30 09/11/19 11:15 1 DROP Atenolol (Tenormin) 100 mg DAILY 07/05/19 09:00 07/04/19 20:08 DC Atropine Sulfate (ATROPINE 0.5mg SYRINGE) 0.5 mg PRN Q5MIN PRN 07/21/19 08:15 Benzocaine (Hurricaine One) 1 spray 1X ONCE 07/08/19 14:30 07/08/19 14:31 DC 07/08/19 16:38 1 SPRAY Bisacodyl (Dulcolax Supp) 10 mg STK-MED ONCE 08/15/19 10:59 08/15/19 10:59 DC Bumetanide (Bumex) 2 mg DAILY 08/26/19 10:00 09/05/19 17:15 DC 09/05/19 08:07 2 MG Bupivacaine HCl/ Epinephrine Bitart (Sensorcain-Epi 0.5%-1:237999 Mpf) 30 ml STK-MED ONCE 08/15/19 10:58 08/15/19 10:58 DC 08/15/19 12:01 7 ML Calcium Carbonate/ Glycine (Tums) 500 mg PRN [id number] PRN 07/06/19 17:45 08/31/19 10:25 DC Calcium Chloride 1000 mg/Sodium Chloride 110 ml @ 220 mls/hr 1X ONCE 07/05/19 22:30 07/05/19 22:59 DC 07/05/19 22:11 220 MLS/HR Calcium Chloride 3000 mg/Sodium Chloride 1,030 ml @ 50 mls/hr [id number] 07/07/19 08:00 07/09/19 15:23 DC 07/09/19 02:17 50 MLS/HR Calcium Gluconate (Calcium Gluconate) 2,000 mg 1X ONCE 07/07/19 02:15 07/07/19 02:16 DC 07/07/19 02:19 2,000 MG Calcium Gluconate 1000 mg/Sodium Chloride 110 ml @ 220 mls/hr 1X ONCE 07/06/19 03:30 07/06/19 03:59 DC 07/06/19 03:21 220 MLS/HR Calcium Gluconate 2000 mg/Sodium Chloride 120 ml @ 220 mls/hr 1X ONCE 07/06/19 07:30 07/06/19 08:02 DC 07/06/19 09:05 220 MLS/HR Cefepime HCl (Maxipime) 2 gm Q12HR 07/13/19 09:00 07/27/19 09:58 DC 07/26/19 20:56 2 GM Cellulose (Surgicel Fibrillar 1x2) 1 each STK-MED ONCE 07/25/19 11:00 07/25/19 11:01 DC Cellulose (Surgicel Hemostat 2x14) 1 each STK-MED ONCE 08/15/19 10:58 08/15/19 10:59 DC Cellulose (Surgicel Hemostat 4x8) 1 each STK-MED ONCE 08/15/19 10:58 08/15/19 10:59 DC Cyclobenzaprine HCl (Flexeril) 10 mg PRN Q6HRS PRN 08/18/19 10:45 Daptomycin 430 mg/ Sodium Chloride 50 ml @ 100 mls/hr Q24H 08/13/19 13:00 08/18/19 20:58 DC 08/18/19 13:00 100 MLS/HR Daptomycin 450 mg/ Sodium Chloride 50 ml @ 100 mls/hr Q24H 09/04/19 09:00 09/08/19 08:30 DC 09/07/19 09:25 100 MLS/HR Daptomycin 485 mg/ Sodium Chloride 50 ml @ 100 mls/hr Q24H 08/22/19 11:00 08/30/19 07:44 DC 08/29/19 13:10 100 MLS/HR Daptomycin 500 mg/ Sodium Chloride 50 ml @ 100 mls/hr Q48H 07/13/19 08:30 07/29/19 10:07 DC 07/29/19 09:57 100 MLS/HR Dexamethasone Sodium Phosphate (Decadron) 4 mg STK-MED ONCE 08/15/19 10:56 08/15/19 10:57 DC Dexmedetomidine HCl 400 mcg/ Sodium Chloride 100 ml @ 0 mls/hr CONT PRN 07/21/19 08:15 09/11/19 23:35 5.4 MLS/HR Dextrose (Dextrose 50%-Water Syringe) 12.5 gm PRN Q15MIN PRN 07/04/19 09:30 Digoxin (Lanoxin) 125 mcg 1X ONCE 07/07/19 18:00 07/07/19 18:01 DC 07/07/19 17:10 125 MCG Diphenhydramine HCl (Benadryl) 25 mg 1X PRN PRN 08/12/19 15:45 08/13/19 15:44 DC Duloxetine HCl (Cymbalta) 30 mg DAILY 08/28/19 14:00 08/31/19 10:25 DC 08/29/19 09:48 30 MG Enoxaparin Sodium (Lovenox 100mg Syringe) 100 mg Q12HR 08/09/19 21:00 UNV Enoxaparin Sodium (Lovenox 40mg Syringe) 40 mg Q24H 09/04/19 17:00 09/11/19 16:42 40 MG Etomidate (Amidate) 8 mg 1X ONCE 07/11/19 08:30 07/11/19 08:31 DC 07/11/19 08:33 8 MG Fentanyl Citrate (Fentanyl 2ml Vial) 25 mcg PRN Q4HRS PRN 09/05/19 13:15 09/11/19 06:36 25 MCG Fentanyl Citrate (Fentanyl 5ml Vial) 250 mcg 1X ONCE 08/26/19 09:15 08/26/19 09:16 DC 08/26/19 09:30 50 MCG Furosemide (Lasix) 40 mg [id number] 09/06/19 14:00 09/11/19 16:41 40 MG Haloperidol Lactate (Haldol Inj) 3 mg 1X ONCE 08/22/19 14:30 08/22/19 14:31 DC 08/22/19 14:37 3 MG Heparin Sodium (Porcine) (Hep Lock Adult) 500 unit STK-MED ONCE 07/26/19 09:29 07/26/19 09:30 DC Heparin Sodium (Porcine) (Heparin Sodium) 5,000 unit Q12HR 08/15/19 21:00 08/25/19 09:59 DC 08/24/19 20:57 5,000 UNIT Heparin Sodium (Porcine) 1000 unit/Sodium Chloride 1,001 ml @ 1,001 mls/hr 1X ONCE 08/15/19 12:00 08/15/19 12:59 DC Hydromorphone HCl (Dilaudid Standard COMMERCIAL PHOTOGRAPHER) 12 mg STK-MED ONCE 08/19/19 15:50 08/30/19 11:24 DC Hydromorphone HCl (Dilaudid) 1 mg PRN Q4HRS PRN 08/22/19 19:00 09/05/19 17:10 DC 09/05/19 06:25 1 MG Info (CONTRAST GIVEN -- Rx MONITORING) 1 each PRN DAILY PRN 07/18/19 11:45 07/20/19 11:44 DC Info (Icu Electrolyte Protocol) 1 ea CONT PRN PRN 07/17/19 13:15 Info (PHARMACY MONITORING -- do not chart) 1 each PRN DAILY PRN 08/12/19 15:45 Info (Tpn Per Pharmacy) 1 each PRN DAILY PRN 07/06/19 12:30 UNV Insulin Human Lispro (HumaLOG) 0-9 UNITS Q6HRS 07/04/19 09:30 09/11/19 23:42 4 UNITS Insulin Human Regular (HumuLIN R VIAL) 5 unit 1X ONCE 07/05/19 22:30 07/05/19 22:31 DC 07/05/19 22:14 5 UNIT Iohexol (Omnipaque 240 Mg/ml) 30 ml 1X ONCE 07/18/19 11:30 07/18/19 11:33 DC 07/18/19 11:30 30 ML Iohexol (Omnipaque 300 Mg/ml) 50 ml STK-MED ONCE 08/15/19 10:58 08/15/19 10:59 DC Iohexol (Omnipaque 350 Mg/ml) 90 ml 1X ONCE 07/04/19 03:30 07/04/19 03:31 DC 07/04/19 03:25 90 ML Ketorolac Tromethamine (Toradol 30mg Vial) 30 mg 1X ONCE 07/04/19 03:00 07/04/19 03:01 DC 07/04/19 02:54 30 MG Lidocaine HCl (Buffered Lidocaine 1%) 6 ml 1X ONCE 08/30/19 14:15 08/30/19 14:16 DC 08/30/19 14:15 3 ML Lidocaine HCl (Glydo (Lidocaine) Jelly) 1 ramu 1X ONCE 07/08/19 14:30 07/08/19 14:31 DC 07/08/19 16:38 1 RAMU Lidocaine HCl (Xylocaine-Mpf 1% 2ml Vial) 2 ml PRN 1X PRN 08/15/19 07:00 08/16/19 06:59 DC Linezolid/Dextrose 300 ml @ 300 mls/hr Q12HR 09/04/19 09:00 09/07/19 08:11 DC 09/06/19 21:08 300 MLS/HR Lorazepam (Ativan Inj) 2 mg PRN Q4HRS PRN 09/04/19 19:15 09/05/19 22:20 2 MG Magnesium Sulfate 50 ml @ 25 mls/hr 1X ONCE 08/28/19 09:00 08/28/19 10:59 DC 08/28/19 10:44 25 MLS/HR Meropenem 1 gm/ Sodium Chloride 100 ml @ 200 mls/hr Q8HRS 08/16/19 14:00 09/09/19 09:31 DC 09/09/19 05:53 200 MLS/HR Meropenem 500 mg/ Sodium Chloride 50 ml @ 100 mls/hr Q12H 07/27/19 10:00 08/16/19 12:37 DC 08/16/19 10:45 100 MLS/HR Metoclopramide HCl (Reglan Vial) 10 mg PRN Q3HRS PRN 08/27/19 16:45 09/01/19 04:25 10 MG Metoprolol Tartrate (Lopressor Vial) 5 mg 1X ONCE 09/04/19 15:15 09/04/19 15:16 DC 09/04/19 15:31 5 MG Metronidazole 100 ml @ 100 mls/hr Q8HRS 08/02/19 10:00 08/09/19 08:10 DC 08/09/19 06:04 100 MLS/HR Micafungin Sodium 100 mg/Dextrose 100 ml @ 100 mls/hr Q24H 08/22/19 11:00 09/11/19 12:58 100 MLS/HR Midazolam HCl (Versed) 5 mg 1X ONCE 08/26/19 09:15 08/26/19 09:16 DC 08/26/19 09:30 1 MG Midazolam HCl 100 mg/Sodium Chloride 100 ml @ 7 mls/hr CONT PRN 07/16/19 16:00 07/27/19 15:35 7 MLS/HR Midazolam HCl 50 mg/Sodium Chloride 50 ml @ 0 mls/hr CONT PRN 07/11/19 08:15 07/16/19 15:59 DC 07/14/19 22:39 7 MLS/HR Morphine Sulfate (Morphine Sulfate) 2 mg PRN Q2HR PRN 07/04/19 05:00 07/05/19 14:15 DC 07/05/19 12:26 2 MG Multi-Ingred Cream/Lotion/Oil/ Oint (Artificial Tears Eye Ointment) 1 ramu PRN Q1HR PRN 07/13/19 17:30 08/01/19 08:19 1 RAMU Naloxone HCl (Narcan) 0.4 mg PRN Q2MIN PRN 08/15/19 14:30 UNV Norepinephrine Bitartrate 8 mg/ Dextrose 258 ml @ 17.299 mls/ hr CONT PRN 07/05/19 15:30 08/05/19 09:19 DC 08/02/19 12:48 20.9 MLS/HR Ondansetron HCl (Zofran) 4 mg STK-MED ONCE 08/15/19 10:56 08/15/19 10:57 DC Pantoprazole Sodium (PROTONIX VIAL for IV PUSH) 40 mg DAILYAC 07/04/19 11:30 09/11/19 11:15 40 MG Phenylephrine HCl (PHENYLEPHRINE in 0.9% NACL PF) 1 mg STK-MED ONCE 08/15/19 12:34 08/15/19 12:34 DC Piperacillin Sod/ Tazobactam Sod 4.5 gm/Sodium Chloride 100 ml @ 200 mls/hr 1X ONCE 07/04/19 06:00 07/04/19 06:29 DC 07/04/19 05:44 200 MLS/HR Potassium Chloride 110 meq/ Magnesium Sulfate 20 meq/ Multivitamins 10 ml/Chromium/ Copper/Manganese/ Seleni/Zn 1 ml/ Insulin Human Regular 15 unit/ Total Parenteral Nutrition/Amino Acids/Dextrose/ Fat Emulsion Intravenous 1,800 ml @ 75 mls/hr TPN CONT 09/11/19 22:00 09/12/19 21:59 09/11/19 22:48 75 MLS/HR Potassium Chloride 15 meq/ Bicarbonate Dialysis Soln w/ out KCl 5,007.5 ml @ 1,000 mls/ hr Q5H1M 07/17/19 20:00 07/21/19 13:08 DC 07/20/19 18:14 1,000 MLS/HR Potassium Chloride 20 meq/ Bicarbonate Dialysis Soln w/ out KCl 5,010 ml @ 1,000 mls/hr Q5H1M 07/13/19 16:00 07/17/19 19:59 DC 07/17/19 14:54 1,000 MLS/HR Potassium Chloride 75 meq/ Magnesium Sulfate 15 meq/ Multivitamins 10 ml/Chromium/ Copper/Manganese/ Seleni/Zn 0.5 ml/ Insulin Human Regular 15 unit/ Total Parenteral Nutrition/Amino Acids/Dextrose/ Fat Emulsion Intravenous 1,920 ml @ 80 mls/hr TPN CONT 08/27/19 22:00 08/28/19 21:59 DC 08/27/19 22:41 80 MLS/HR Potassium Chloride 75 meq/ Magnesium Sulfate 15 meq/Calcium Gluconate 8 meq/ Multivitamins 10 ml/Chromium/ Copper/Manganese/ Seleni/Zn 0.5 ml/ Insulin Human Regular 15 unit/ Total Parenteral Nutrition/Amino Acids/Dextrose/ Fat Emulsion Intravenous 1,920 ml @ 80 mls/hr TPN CONT 08/25/19 22:00 08/26/19 21:59 DC 08/25/19 22:28 80 MLS/HR Potassium Chloride 75 meq/ Magnesium Sulfate 15 meq/Calcium Gluconate 8 meq/ Multivitamins 10 ml/Chromium/ Copper/Manganese/ Seleni/Zn 0.5 ml/ Insulin Human Regular 20 unit/ Total Parenteral Nutrition/Amino Acids/Dextrose/ Fat Emulsion Intravenous 1,920 ml @ 80 mls/hr TPN CONT 08/24/19 22:00 08/25/19 21:59 DC 08/24/19 22:00 80 MLS/HR Potassium Chloride 75 meq/ Magnesium Sulfate 15 meq/Calcium Gluconate 8 meq/ Multivitamins 10 ml/Chromium/ Copper/Manganese/ Seleni/Zn 0.5 ml/ Insulin Human Regular 25 unit/ Total Parenteral Nutrition/Amino Acids/Dextrose/ Fat Emulsion Intravenous 1,920 ml @ 80 mls/hr TPN CONT 08/22/19 22:00 08/23/19 21:59 DC 08/22/19 23:08 80 MLS/HR Potassium Chloride 75 meq/ Magnesium Sulfate 20 meq/Calcium Gluconate 10 meq/ Multivitamins 10 ml/Chromium/ Copper/Manganese/ Seleni/Zn 0.5 ml/ Insulin Human Regular 25 unit/ Total Parenteral Nutrition/Amino Acids/Dextrose/ Fat Emulsion Intravenous 1,920 ml @ 80 mls/hr TPN CONT 08/21/19 22:00 08/22/19 21:59 DC 08/21/19 22:04 80 MLS/HR Potassium Chloride 75 meq/ Magnesium Sulfate 20 meq/Calcium Gluconate 10 meq/ Multivitamins 10 ml/Chromium/ Copper/Manganese/ Seleni/Zn 0.5 ml/ Insulin Human Regular 30 unit/ Total Parenteral Nutrition/Amino Acids/Dextrose/ Fat Emulsion Intravenous 1,920 ml @ 80 mls/hr TPN CONT 08/20/19 22:00 08/21/19 22:00 DC 08/20/19 21:51 80 MLS/HR Potassium Chloride 80 meq/ Magnesium Sulfate 20 meq/ Multivitamins 10 ml/Chromium/ Copper/Manganese/ Seleni/Zn 0.5 ml/ Insulin Human Regular 15 unit/ Total Parenteral Nutrition/Amino Acids/Dextrose/ Fat Emulsion Intravenous 1,920 ml @ 80 mls/hr TPN CONT 08/30/19 22:00 08/31/19 21:59 DC 08/30/19 21:40 80 MLS/HR Potassium Chloride 80 meq/ Magnesium Sulfate 20 meq/ Multivitamins 10 ml/Chromium/ Copper/Manganese/ Seleni/Zn 1 ml/ Insulin Human Regular 15 unit/ Total Parenteral Nutrition/Amino Acids/Dextrose/ Fat Emulsion Intravenous 1,920 ml @ 80 mls/hr TPN CONT 08/31/19 22:00 09/01/19 21:59 DC 08/31/19 22:04 80 MLS/HR Potassium Chloride 90 meq/ Magnesium Sulfate 20 meq/ Multivitamins 10 ml/Chromium/ Copper/Manganese/ Seleni/Zn 1 ml/ Insulin Human Regular 15 unit/ Total Parenteral Nutrition/Amino Acids/Dextrose/ Fat Emulsion Intravenous 1,800 ml @ 75 mls/hr TPN CONT 09/07/19 22:00 09/08/19 21:59 DC 09/07/19 22:28 75 MLS/HR Potassium Chloride/Water 100 ml @ 100 mls/hr 1X ONCE 09/01/19 11:00 09/01/19 11:59 DC 09/01/19 11:34 100 MLS/HR Potassium Phosphate 20 mmol/ Sodium Chloride 106.6667 ml @ 51.667 m... 1X ONCE 07/13/19 13:00 07/13/19 15:03 DC 07/13/19 12:51 51.667 MLS/HR Potassium Acetate 30 meq/Magnesium Sulfate 20 meq/ Calcium Gluconate 10 meq/ Multivitamins 10 ml/Chromium/ Copper/Manganese/ Seleni/Zn 0.5 ml/ Insulin Human Regular 30 unit/ Potassium Chloride 30 meq/ Total Parenteral Nutrition/Amino Acids/Dextrose/ Fat Emulsion Intravenous 1,920 ml @ 80 mls/hr TPN CONT 08/19/19 22:00 08/20/19 21:59 DC 08/19/19 22:34 80 MLS/HR Potassium Acetate 55 meq/Magnesium Sulfate 20 meq/ Calcium Gluconate 10 meq/ Multivitamins 10 ml/Chromium/ Copper/Manganese/ Seleni/Zn 0.5 ml/ Insulin Human Regular 30 unit/ Total Parenteral Nutrition/Amino Acids/Dextrose/ Fat Emulsion Intravenous 1,920 ml @ 80 mls/hr TPN CONT 08/18/19 22:00 08/19/19 21:59 DC 08/19/19 01:00 80 MLS/HR Potassium Acetate 55 meq/Magnesium Sulfate 20 meq/ Calcium Gluconate 10 meq/ Multivitamins 10 ml/Chromium/ Copper/Manganese/ Seleni/Zn 0.5 ml/ Insulin Human Regular 35 unit/ Total Parenteral Nutrition/Amino Acids/Dextrose/ Fat Emulsion Intravenous 1,920 ml @ 80 mls/hr TPN CONT 08/16/19 22:00 08/17/19 21:59 DC 08/16/19 22:02 80 MLS/HR Potassium Acetate 65 meq/Magnesium Sulfate 20 meq/ Calcium Gluconate 10 meq/ Multivitamins 10 ml/Chromium/ Copper/Manganese/ Seleni/Zn 0.5 ml/ Insulin Human Regular 30 unit/ Total Parenteral Nutrition/Amino Acids/Dextrose/ Fat Emulsion Intravenous 1,920 ml @ 80 mls/hr TPN CONT 08/17/19 22:00 08/18/19 21:59 DC 08/17/19 22:22 80 MLS/HR Prochlorperazine Edisylate (Compazine) 5 mg PACU PRN PRN 08/15/19 07:00 08/16/19 06:59 DC Propofol 20 ml @ As Directed STK-MED ONCE 08/15/19 12:26 08/15/19 12:27 DC Ringer's Solution 1,000 ml @ 30 mls/hr Q24H 08/15/19 07:00 08/15/19 18:59 DC Rocuronium [place] (Zemuron) 50 mg STK-MED ONCE 08/15/19 10:56 08/15/19 10:57 DC Saliva Substitute (Biotene Moisturizing Mouth) 2 spray PRN Q15MIN PRN 09/08/19 11:00 Sevoflurane (Ultane) 60 ml STK-MED ONCE 08/15/19 12:26 08/15/19 12:27 DC Sodium Bicarbonate 50 meq/Sodium Chloride 1,050 ml @ 75 mls/hr Q14H 07/06/19 07:30 07/11/19 10:28 DC 07/10/19 21:10 75 MLS/HR Sodium Acetate 50 meq/Potassium Acetate 55 meq/ Magnesium Sulfate 20 meq/Calcium Gluconate 10 meq/ Multivitamins 10 ml/Chromium/ Copper/Manganese/ Seleni/Zn 0.5 ml/ Insulin Human Regular 35 unit/ Total Parenteral Nutrition/Amino Acids/Dextrose/ Fat Emulsion Intravenous 1,800 ml @ 75 mls/hr TPN CONT 08/13/19 22:00 08/14/19 21:59 DC 08/13/19 22:03 75 MLS/HR Sodium Chloride 1,000 ml @ 25 mls/hr Q24H 08/15/19 14:30 UNV Sodium Chloride (Normal Saline Flush) 3 ml QSHIFT PRN 08/15/19 13:45 Sodium Chloride 90 meq/Calcium Gluconate 10 meq/ Multivitamins 10 ml/Chromium/ Copper/Manganese/ Seleni/Zn 0.5 ml/ Total Parenteral Nutrition/Amino Acids/Dextrose/ Fat Emulsion Intravenous 1,512 ml @ 63 mls/hr TPN CONT 07/06/19 22:00 07/07/19 21:59 DC 07/06/19 22:06 63 MLS/HR Sodium Chloride 90 meq/Calcium Gluconate 10 meq/ Multivitamins 10 ml/Chromium/ Copper/Manganese/ Seleni/Zn 1 ml/ Total Parenteral Nutrition/Amino Acids/Dextrose/ Fat Emulsion Intravenous 55.005 ml @ 2.292 mls/hr TPN CONT 07/06/19 22:00 07/06/19 12:33 DC Sodium Chloride 90 meq/Magnesium Sulfate 10 meq/ Calcium Gluconate 20 meq/ Multivitamins 10 ml/Chromium/ Copper/Manganese/ Seleni/Zn 0.5 ml/ Total Parenteral Nutrition/Amino Acids/Dextrose/ Fat Emulsion Intravenous 1,512 ml @ 63 mls/hr TPN CONT 07/07/19 22:00 07/08/19 21:59 DC 07/07/19 22:25 63 MLS/HR Sodium Chloride 90 meq/Magnesium Sulfate 12 meq/ Calcium Gluconate 15 meq/ Multivitamins 10 ml/Chromium/ Copper/Manganese/ Seleni/Zn 0.5 ml/ Insulin Human Regular 25 unit/ Total Parenteral Nutrition/Amino Acids/Dextrose/ Fat Emulsion Intravenous 1,400 ml @ 58.333 mls/ hr TPN CONT 07/27/19 22:00 07/28/19 21:59 DC 07/27/19 21:41 58.333 MLS/HR Sodium Chloride 90 meq/Potassium Chloride 15 meq/ Magnesium Sulfate 12 meq/Calcium Gluconate 15 meq/ Multivitamins 10 ml/Chromium/ Copper/Manganese/ Seleni/Zn 0.5 ml/ Insulin Human Regular 25 unit/ Total Parenteral Nutrition/Amino Acids/Dextrose/ Fat Emulsion Intravenous 1,400 ml @ 58.333 mls/ hr TPN CONT 07/26/19 22:00 07/27/19 21:59 DC 07/26/19 22:13 58.333 MLS/HR Sodium Chloride 90 meq/Potassium Chloride 15 meq/ Potassium Phosphate 10 mmol/ Magnesium Sulfate 8 meq/Calcium Gluconate 15 meq/ Multivitamins 10 ml/Chromium/ Copper/Manganese/ Seleni/Zn 0.5 ml/ Insulin Human Regular 25 unit/ Total Parenteral Nutrition/Amino Acids/Dextrose/ Fat Emulsion Intravenous 1,400 ml @ 58.333 mls/ hr TPN CONT 07/24/19 22:00 07/25/19 21:59 DC 07/24/19 21:20 58.333 MLS/HR Sodium Chloride 90 meq/Potassium Chloride 15 meq/ Potassium Phosphate 10 mmol/ Magnesium Sulfate 10 meq/Calcium Gluconate 20 meq/ Multivitamins 10 ml/Chromium/ Copper/Manganese/ Seleni/Zn 0.5 ml/ Total Parenteral Nutrition/Amino Acids/Dextrose/ Fat Emulsion Intravenous 1,400 ml @ 58.333 mls/ hr TPN CONT 07/11/19 22:00 07/12/19 21:59 DC 07/11/19 21:42 58.333 MLS/HR Sodium Chloride 90 meq/Potassium Chloride 15 meq/ Potassium Phosphate 10 mmol/ Magnesium Sulfate 12 meq/Calcium Gluconate 15 meq/ Multivitamins 10 ml/Chromium/ Copper/Manganese/ Seleni/Zn 0.5 ml/ Insulin Human Regular 25 unit/ Total Parenteral Nutrition/Amino Acids/Dextrose/ Fat Emulsion Intravenous 1,400 ml @ 58.333 mls/ hr TPN CONT 07/25/19 22:00 07/26/19 21:59 DC 07/25/19 22:24 58.333 MLS/HR Sodium Chloride 90 meq/Potassium Chloride 15 meq/ Potassium Phosphate 15 mmol/ Magnesium Sulfate 10 meq/Calcium Gluconate 15 meq/ Multivitamins 10 ml/Chromium/ Copper/Manganese/ Seleni/Zn 0.5 ml/ Total Parenteral Nutrition/Amino Acids/Dextrose/ Fat Emulsion Intravenous 1,400 ml @ 58.333 mls/ hr TPN CONT 07/12/19 22:00 07/13/19 21:59 DC 07/12/19 22:17 58.333 MLS/HR Sodium Chloride 90 meq/Potassium Chloride 15 meq/ Potassium Phosphate 15 mmol/ Magnesium Sulfate 10 meq/Calcium Gluconate 20 meq/ Multivitamins 10 ml/Chromium/ Copper/Manganese/ Seleni/Zn 0.5 ml/ Total Parenteral Nutrition/Amino Acids/Dextrose/ Fat Emulsion Intravenous 1,200 ml @ 50 mls/hr TPN CONT 07/10/19 22:00 07/10/19 14:17 DC Sodium Chloride 90 meq/Potassium Chloride 15 meq/ Potassium Phosphate 18 mmol/ Magnesium Sulfate 8 meq/Calcium Gluconate 15 meq/ Multivitamins 10 ml/Chromium/ Copper/Manganese/ Seleni/Zn 0.5 ml/ Insulin Human Regular 10 unit/ Total Parenteral Nutrition/Amino Acids/Dextrose/ Fat Emulsion Intravenous 1,400 ml @ 58.333 mls/ hr TPN CONT 07/15/19 22:00 07/16/19 21:59 DC 07/15/19 21:43 58.333 MLS/HR Sodium Chloride 90 meq/Potassium Chloride 15 meq/ Potassium Phosphate 18 mmol/ Magnesium Sulfate 8 meq/Calcium Gluconate 15 meq/ Multivitamins 10 ml/Chromium/ Copper/Manganese/ Seleni/Zn 0.5 ml/ Insulin Human Regular 15 unit/ Total Parenteral Nutrition/Amino Acids/Dextrose/ Fat Emulsion Intravenous 1,400 ml @ 58.333 mls/ hr TPN CONT 07/18/19 22:00 07/19/19 21:59 DC 07/18/19 21:47 58.333 MLS/HR Sodium Chloride 90 meq/Potassium Chloride 15 meq/ Potassium Phosphate 18 mmol/ Magnesium Sulfate 8 meq/Calcium Gluconate 15 meq/ Multivitamins 10 ml/Chromium/ Copper/Manganese/ Seleni/Zn 0.5 ml/ Insulin Human Regular 20 unit/ Total Parenteral Nutrition/Amino Acids/Dextrose/ Fat Emulsion Intravenous 1,400 ml @ 58.333 mls/ hr TPN CONT 07/21/19 22:00 07/22/19 21:59 DC 07/21/19 22:45 58.333 MLS/HR Sodium Chloride 90 meq/Potassium Chloride 15 meq/ Potassium Phosphate 18 mmol/ Magnesium Sulfate 8 meq/Calcium Gluconate 15 meq/ Multivitamins 10 ml/Chromium/ Copper/Manganese/ Seleni/Zn 0.5 ml/ Total Parenteral Nutrition/Amino Acids/Dextrose/ Fat Emulsion Intravenous 1,400 ml @ 58.333 mls/ hr TPN CONT 07/14/19 22:00 07/15/19 21:59 DC 07/14/19 22:00 58.333 MLS/HR Sodium Chloride 90 meq/Potassium Phosphate 15 mmol/ Magnesium Sulfate 12 meq/Calcium Gluconate 15 meq/ Multivitamins 10 ml/Chromium/ Copper/Manganese/ Seleni/Zn 0.5 ml/ Insulin Human Regular 30 unit/ Total Parenteral Nutrition/Amino Acids/Dextrose/ Fat Emulsion Intravenous 1,400 ml @ 58.333 mls/ hr TPN CONT 07/29/19 22:00 07/30/19 21:59 DC 07/29/19 21:49 58.333 MLS/HR Sodium Chloride 90 meq/Potassium Phosphate 15 mmol/ Magnesium Sulfate 12 meq/Calcium Gluconate 15 meq/ Multivitamins 10 ml/Chromium/ Copper/Manganese/ Seleni/Zn 0.5 ml/ Insulin Human Regular 40 unit/ Total Parenteral Nutrition/Amino Acids/Dextrose/ Fat Emulsion Intravenous 1,400 ml @ 58.333 mls/ hr TPN CONT 07/30/19 22:00 07/31/19 21:59 DC 07/30/19 21:21 58.333 MLS/HR Sodium Chloride 90 meq/Potassium Phosphate 19 mmol/ Magnesium Sulfate 12 meq/Calcium Gluconate 15 meq/ Multivitamins 10 ml/Chromium/ Copper/Manganese/ Seleni/Zn 0.5 ml/ Insulin Human Regular 40 unit/ Total Parenteral Nutrition/Amino Acids/Dextrose/ Fat Emulsion Intravenous 1,400 ml @ 58.333 mls/ hr TPN CONT 07/31/19 22:00 08/01/19 21:59 DC 07/31/19 21:54 58.333 MLS/HR Sodium Chloride 90 meq/Potassium Phosphate 5 mmol/ Magnesium Sulfate 12 meq/Calcium Gluconate 15 meq/ Multivitamins 10 ml/Chromium/ Copper/Manganese/ Seleni/Zn 0.5 ml/ Insulin Human Regular 30 unit/ Total Parenteral Nutrition/Amino Acids/Dextrose/ Fat Emulsion Intravenous 1,400 ml @ 58.333 mls/ hr TPN CONT 07/28/19 22:00 07/29/19 21:59 DC 07/28/19 22:08 58.333 MLS/HR Sodium Chloride 100 meq/Potassium Chloride 40 meq/ Magnesium Sulfate 15 meq/Calcium Gluconate 15 meq/ Multivitamins 10 ml/Chromium/ Copper/Manganese/ Seleni/Zn 0.5 ml/ Insulin Human Regular 35 unit/ Total Parenteral Nutrition/Amino Acids/Dextrose/ Fat Emulsion Intravenous 1,400 ml @ 58.333 mls/ hr TPN CONT 08/07/19 22:00 08/08/19 21:59 DC 08/07/19 22:46 58.333 MLS/HR Sodium Chloride 100 meq/Potassium Chloride 40 meq/ Magnesium Sulfate 20 meq/Calcium Gluconate 10 meq/ Multivitamins 10 ml/Chromium/ Copper/Manganese/ Seleni/Zn 0.5 ml/ Insulin Human Regular 35 unit/ Total Parenteral Nutrition/Amino Acids/Dextrose/ Fat Emulsion Intravenous 1,400 ml @ 58.333 mls/ hr TPN CONT 08/11/19 22:00 08/12/19 21:59 DC 08/12/19 00:06 58.333 MLS/HR Sodium Chloride 100 meq/Potassium Chloride 40 meq/ Magnesium Sulfate 20 meq/Calcium Gluconate 15 meq/ Multivitamins 10 ml/Chromium/ Copper/Manganese/ Seleni/Zn 0.5 ml/ Insulin Human Regular 35 unit/ Total Parenteral Nutrition/Amino Acids/Dextrose/ Fat Emulsion Intravenous 1,400 ml @ 58.333 mls/ hr TPN CONT 08/10/19 22:00 08/11/19 21:59 DC 08/10/19 22:27 58.333 MLS/HR Sodium Chloride 100 meq/Potassium Phosphate 10 mmol/ Magnesium Sulfate 12 meq/Calcium Gluconate 15 meq/ Multivitamins 10 ml/Chromium/ Copper/Manganese/ Seleni/Zn 0.5 ml/ Insulin Human Regular 35 unit/ Potassium Chloride 20 meq/ Total Parenteral Nutrition/Amino Acids/Dextrose/ Fat Emulsion Intravenous 1,400 ml @ 58.333 mls/ hr TPN CONT 08/04/19 22:00 08/05/19 21:59 DC 08/04/19 22:10 58.333 MLS/HR Sodium Chloride 100 meq/Potassium Phosphate 19 mmol/ Magnesium Sulfate 12 meq/Calcium Gluconate 15 meq/ Multivitamins 10 ml/Chromium/ Copper/Manganese/ Seleni/Zn 0.5 ml/ Insulin Human Regular 40 unit/ Potassium Chloride 20 meq/ Total Parenteral Nutrition/Amino Acids/Dextrose/ Fat Emulsion Intravenous 1,400 ml @ 58.333 mls/ hr TPN CONT 08/03/19 22:00 08/04/19 21:59 DC 08/03/19 21:20 58.333 MLS/HR Sodium Chloride 100 meq/Potassium Phosphate 5 mmol/ Magnesium Sulfate 12 meq/Calcium Gluconate 15 meq/ Multivitamins 10 ml/Chromium/ Copper/Manganese/ Seleni/Zn 0.5 ml/ Insulin Human Regular 35 unit/ Potassium Chloride 20 meq/ Total Parenteral Nutrition/Amino Acids/Dextrose/ Fat Emulsion Intravenous 1,400 ml @ 58.333 mls/ hr TPN CONT 08/05/19 22:00 08/06/19 21:59 DC 08/05/19 22:59 58.333 MLS/HR Succinylcholine Chloride (Anectine) 120 mg 1X ONCE 07/11/19 08:30 07/11/19 08:31 DC 07/11/19 08:34 120 MG Vecuronium [place] (Norcuron Bolus) 6 mg PRN Q6HRS PRN 08/25/19 19:15 08/25/19 19:35 DC Labs: Lab Laboratory Tests Test 09/11/19 11:25 09/11/19 23:39 09/12/19 06:50 09/12/19 06:52 White Blood Count 16.0 x10^3/uL (4.0-11.0) Red Blood Count 2.94 x10^6/uL (3.50-5.40) Hemoglobin 8.5 g/dL (12.0-15.5) Hematocrit 25.5 % (36.0-47.0) Mean Corpuscular Volume 87 fL (79-100) Mean Corpuscular Hemoglobin 29 pg (25-35) Mean Corpuscular Hemoglobin Concent 34 g/dL (31-37) Red Cell Distribution Width 19.0 % (11.5-14.5) Platelet Count 317 x10^3/uL (140-400) Sodium Level 136 mmol/L (136-145) 135 mmol/L (136-145) Potassium Level 4.8 mmol/L (3.5-5.1) 5.0 mmol/L (3.5-5.1) Chloride Level 98 mmol/L (98-107) 97 mmol/L (98-107) Carbon Dioxide Level 34 mmol/L (21-32) 34 mmol/L (21-32) Anion Gap 4 (6-14) 4 (6-14) Blood Urea Nitrogen 23 mg/dL (7-20) 24 mg/dL (7-20) Creatinine 0.8 mg/dL (0.6-1.0) 0.8 mg/dL (0.6-1.0) Estimated GFR (Cockcroft-Gault) 76.2 76.2 BUN/Creatinine Ratio 29 (6-20) 30 (6-20) Glucose Level 131 mg/dL (70-99) 140 mg/dL (70-99) Calcium Level 10.1 mg/dL (8.5-10.1) 10.0 mg/dL (8.5-10.1) Total Bilirubin 0.7 mg/dL (0.2-1.0) 0.7 mg/dL (0.2-1.0) Aspartate Amino Transf (AST/SGOT) 34 U/L (15-37) 26 U/L (15-37) Alanine Aminotransferase (ALT/SGPT) 25 U/L (14-59) 25 U/L (14-59) Alkaline Phosphatase 131 U/L (46-116) 119 U/L (46-116) Total Protein 6.9 g/dL (6.4-8.2) 6.9 g/dL (6.4-8.2) Albumin 2.4 g/dL (3.4-5.0) 2.3 g/dL (3.4-5.0) Albumin/Globulin Ratio 0.5 (1.0-1.7) 0.5 (1.0-1.7) Glucose (Fingerstick) 161 mg/dL (70-99) 135 mg/dL (70-99) Phosphorus Level 5.2 mg/dL (2.6-4.7) Magnesium Level 2.3 mg/dL (1.8-2.4) Triglycerides Level 217 mg/dL (0-150) Objective: Assessment: Fever intermittent could be from underlying pancreatitis, Acute pancreatitis with persistent necrosis CT a/p 07/27 Increased ascites. 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 Leucocytosis JUANA,Hyperkalemia, Metabolic acidosis off dialysis Acute hypoxic resp failure ,bilateral pleural effusion and atelectasis hypocalcemia Prediabetes HTN s/p trach Plan: Plan of Care cont Micafungin, 08/21 Off dapto/zyvox/merrem Maintain aspiration precaution Supportive care Critically ill YUNIOR JONES MD September 12, 2019 08:03
[2019-09-12] MEDS: PANTOPRAZOLE IV PUSH 40 MG VIAL. IVP SCH (08:49)
[2019-09-12] MEDS: FUROSEMIDE 40 MG/4 ML VIAL. IVP SCH ×2 (08:51→13:49)
--- NOTE | 2019-09-12 09:10 | PDOC ---
PULMONARY PROGRESS NOTES Subjective Patient intubated on 07/10 , s/p trach 4/6, Remains on TS Denies SOB or increased cough, continues to have Nausea-- NG to LIS in place Vitals Vital Signs Date Time Temp Pulse Resp B/P (MAP) Pulse Ox O2 Delivery O2 Flow Rate FiO2 09/12/19 08:57 101 18 109/64 (79) 99 Tracheal Collar 8.0 09/12/19 08:37 99.6 99.6 ROS: No Chest Pain, No Abdominal Pain, No Increase Cough General: Alert, No acute distress HEENT: Other (trach midline ) Lungs: Other (decrease bs) Cardiovascular: S1, S2 Abdomen: Soft, Non-tender Neuro Exam: Alert Extremities: Other (+3 generalized edema ) Skin: Warm, Dry Labs Laboratory Tests Test 09/10/19 17:53 09/10/19 23:53 09/11/19 05:46 09/11/19 11:25 Glucose (Fingerstick) 140 mg/dL (70-99) 135 mg/dL (70-99) 150 mg/dL (70-99) White Blood Count 16.0 x10^3/uL (4.0-11.0) Red Blood Count 2.94 x10^6/uL (3.50-5.40) Hemoglobin 8.5 g/dL (12.0-15.5) Hematocrit 25.5 % (36.0-47.0) Mean Corpuscular Volume 87 fL (79-100) Mean Corpuscular Hemoglobin 29 pg (25-35) Mean Corpuscular Hemoglobin Concent 34 g/dL (31-37) Red Cell Distribution Width 19.0 % (11.5-14.5) Platelet Count 317 x10^3/uL (140-400) Sodium Level 136 mmol/L (136-145) Potassium Level 4.8 mmol/L (3.5-5.1) Chloride Level 98 mmol/L (98-107) Carbon Dioxide Level 34 mmol/L (21-32) Anion Gap 4 (6-14) Blood Urea Nitrogen 23 mg/dL (7-20) Creatinine 0.8 mg/dL (0.6-1.0) Estimated GFR (Cockcroft-Gault) 76.2 BUN/Creatinine Ratio 29 (6-20) Glucose Level 131 mg/dL (70-99) Calcium Level 10.1 mg/dL (8.5-10.1) Total Bilirubin 0.7 mg/dL (0.2-1.0) Aspartate Amino Transf (AST/SGOT) 34 U/L (15-37) Alanine Aminotransferase (ALT/SGPT) 25 U/L (14-59) Alkaline Phosphatase 131 U/L (46-116) Total Protein 6.9 g/dL (6.4-8.2) Albumin 2.4 g/dL (3.4-5.0) Albumin/Globulin Ratio 0.5 (1.0-1.7) Test 09/11/19 23:39 09/12/19 06:50 09/12/19 06:52 Glucose (Fingerstick) 161 mg/dL (70-99) 135 mg/dL (70-99) Sodium Level 135 mmol/L (136-145) Potassium Level 5.0 mmol/L (3.5-5.1) Chloride Level 97 mmol/L (98-107) Carbon Dioxide Level 34 mmol/L (21-32) Anion Gap 4 (6-14) Blood Urea Nitrogen 24 mg/dL (7-20) Creatinine 0.8 mg/dL (0.6-1.0) Estimated GFR (Cockcroft-Gault) 76.2 BUN/Creatinine Ratio 30 (6-20) Glucose Level 140 mg/dL (70-99) Calcium Level 10.0 mg/dL (8.5-10.1) Phosphorus Level 5.2 mg/dL (2.6-4.7) Magnesium Level 2.3 mg/dL (1.8-2.4) Total Bilirubin 0.7 mg/dL (0.2-1.0) Aspartate Amino Transf (AST/SGOT) 26 U/L (15-37) Alanine Aminotransferase (ALT/SGPT) 25 U/L (14-59) Alkaline Phosphatase 119 U/L (46-116) Total Protein 6.9 g/dL (6.4-8.2) Albumin 2.3 g/dL (3.4-5.0) Albumin/Globulin Ratio 0.5 (1.0-1.7) Triglycerides Level 217 mg/dL (0-150) Laboratory Tests Test 09/11/19 11:25 09/11/19 23:39 09/12/19 06:50 09/12/19 06:52 White Blood Count 16.0 x10^3/uL (4.0-11.0) Red Blood Count 2.94 x10^6/uL (3.50-5.40) Hemoglobin 8.5 g/dL (12.0-15.5) Hematocrit 25.5 % (36.0-47.0) Mean Corpuscular Volume 87 fL (79-100) Mean Corpuscular Hemoglobin 29 pg (25-35) Mean Corpuscular Hemoglobin Concent 34 g/dL (31-37) Red Cell Distribution Width 19.0 % (11.5-14.5) Platelet Count 317 x10^3/uL (140-400) Sodium Level 136 mmol/L (136-145) 135 mmol/L (136-145) Potassium Level 4.8 mmol/L (3.5-5.1) 5.0 mmol/L (3.5-5.1) Chloride Level 98 mmol/L (98-107) 97 mmol/L (98-107) Carbon Dioxide Level 34 mmol/L (21-32) 34 mmol/L (21-32) Anion Gap 4 (6-14) 4 (6-14) Blood Urea Nitrogen 23 mg/dL (7-20) 24 mg/dL (7-20) Creatinine 0.8 mg/dL (0.6-1.0) 0.8 mg/dL (0.6-1.0) Estimated GFR (Cockcroft-Gault) 76.2 76.2 BUN/Creatinine Ratio 29 (6-20) 30 (6-20) Glucose Level 131 mg/dL (70-99) 140 mg/dL (70-99) Calcium Level 10.1 mg/dL (8.5-10.1) 10.0 mg/dL (8.5-10.1) Total Bilirubin 0.7 mg/dL (0.2-1.0) 0.7 mg/dL (0.2-1.0) Aspartate Amino Transf (AST/SGOT) 34 U/L (15-37) 26 U/L (15-37) Alanine Aminotransferase (ALT/SGPT) 25 U/L (14-59) 25 U/L (14-59) Alkaline Phosphatase 131 U/L (46-116) 119 U/L (46-116) Total Protein 6.9 g/dL (6.4-8.2) 6.9 g/dL (6.4-8.2) Albumin 2.4 g/dL (3.4-5.0) 2.3 g/dL (3.4-5.0) Albumin/Globulin Ratio 0.5 (1.0-1.7) 0.5 (1.0-1.7) Glucose (Fingerstick) 161 mg/dL (70-99) 135 mg/dL (70-99) Phosphorus Level 5.2 mg/dL (2.6-4.7) Magnesium Level 2.3 mg/dL (1.8-2.4) Triglycerides Level 217 mg/dL (0-150) Medications Active Scripts Medications Dose Route/Sig Max Daily Dose Days Date Category Bisoprolol Fumarate 5 Mg Tablet 10 Mg PO DAILY 07/04/19 Reported Impression . IMPRESSION: 1. Acute hypoxemic respiratory failure secondary to ARDS status post trach, 2. Gallstone pancreatitis 3. Severe metabolic acidosis.stable 4. Acute kidney injury-stable, Off HD-- continue to improve 5. Acute gallstone pancreatitis. 6. Hypoalbuminemia. 7. Moderate persistent effusions, s/p left thora 08/29 8. Fever- Per ID, per surgery--resolved 9. Chronic anemia 10. Covid 19 testing negative 11. Moderate to large ascites-S/P paracentisis 12.S/P paracentisis with 4 liters removed on 08/03/19 13. S/P IR drain placement on 08/26/2019 Plan . 1.Continue supplemental oxygen via trach shield-- PMV/capping as tolerated 2. s/p thoracentesis, 08/29, 3 litres removed 3. Follow surgery recs-- S/P 3 drain placed in IR on 08/26/2019 4. Follow ID recs for ABX 5. Follow nephrology recs 6. Continue TPN DVT/GI PPX: heparin SQ/ protonix D/W RN and RT, CODE:HARMEET MILLARD MD September 12, 2019 09:10
[2019-09-12] MEDS: TPN PER PHARMACY MC PRN (09:33)
--- NOTE | 2019-09-12 09:33 | NUR ---
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, 8 inches Weight: 77.0 kg Current diet: NPO LABS: Sodium: 135 Potassium: 5 Chloride: 97 Calcium: 10.0 Corrected Calcium: 11.36 Magnesium: 2.3 CO2: 34 SCr: 0.8 Glucose: 161, 140, 131 Albumin: 2.3 AST: 26 ALT: 25 TPN FORMULA: TPN TYPE: Central Continuous AMINO ACIDS: 70 gm DEXTROSE: 250 gm LIPIDS: 30 gm POTASSIUM CHLORIDE: 70 mEq MAGNESIUM: 20 mEq INSULIN: 15 units MULTIPLE VITAMIN: 10 ml TRACE ELEMENTS: 1 ml TPN PLAN: -Serum potassium trending to upper range of normal, reduce KCl to 70 mEq/day. -TG 217, okay to continue same lipid component. -Serum potassium tomorow. R: Continue TPN @ 75 ml/hr and above formula. Will monitor electrolytes, glucose, and tolerance to TPN. SHARON CHRISTIANSON [facility], 09/12/19 [id number]
[2019-09-12] MEDS: DEXMEDETOMIDINE 400 MCG in IV NORMAL SALINE 100ML 96 ML IV PRN ×2 (11:10→20:00)
[2019-09-12] MEDS: MICAFUNGIN 100 MG in IV DEXTROSE 5% 100ML 100 ML IV SCH (11:11)
--- NOTE | 2019-09-12 11:48 | PDOC ---
[facility] PROGRESS NOTE Chief Complaint Chief Complaint Acute hypoxic Respiratory failure requiring mechanical ventilation (now extubated for several days but still with tracheostomy) Tracheostomy bilateral pleural effusions/pulm edema Sepsis Severe Acute gallstone pancreatitis (not a surgical candidate at this time) with necrosis Acute kidney failure now requiring dialysis Salpingitis Gallstones (Calculus of gallbladder with acute cholecystitis without obstruc tion) HTN Leukocytosis Hypoxia Uterine fibroid Intractable pain Intractable nausea Covid 19 negative. Acute on chronic anemia EEG: No seizure activityFever - better currently - intermittent could be from underlying pancreatitis blood cults 08/21 - neg so far ? Ileus with vomiting Abd distention - U/S and CT reviewed s/p 0.4 L of opaque, debris-containing ascites was removed 08/23 Acute pancreatitis with persistent necrosis - 08/14 status post KAYLIN drain placement + C paropsilosis. s/p additional drains 08/25 Anemia - S/p PRBCs Cholelithiasis with thickening of the gallbladder wall. Leucocytosis improving JUANA, hyperkalemia, Metabolic acidosis off dialysis Acute hypoxic resp failure ,bilateral pleural effusion and atelectasis hypocalcemia Prediabetes HTN s/p trach ESRD on HD Hyperglycemia History of Present Illness History of Present Illness 09/12/2019 Patient seen and examined in the ICU Patient up in the chair Having a severe coughing episode with a lot of phlegm coming out of her tracheostomy Discussed with RN Discussed with physical therapy Chart reviewed 09/10,. feels well, has been out of room in wheelchair no complaint, still weak, some with not wanting to wear her valve on trach cont other, may be able to work with speech tomorrow, juan ramon [place] to try, 09/09, anxiety is up today, she dislikes the valve still, shower and outside today . 09/08 she doesnt want to wear her passy-fantasma valve, discussed str and plan with her. speech following, needs swallow study, but needs to wear her valve longer, cont current able to walk some, walker 09/07 stronger, better, we discussed better oral care she would like to try swallow study, wants to try to eat, speech is following 09/07/2019 She remains in the ICU sitting up and working with OT, getting better if limit pain meds, may do better off the vent, Nurses trying to suction her, that is also improved, Chart reviewed 09/06/2019 Patient seen and examined in the ICU She had an episode yesterday of tachycardia and severe agitation we gave her some Ativan After that she seemed to have stroke symptoms but now that the Ativan has wore off her stroke symptoms have resolved She is on IV meropenem and daptomycin and micafungin Chart reviewed Discussed with RN Patient is still critically ill BRIEF OPERATIVE NOTE Pre-Op Diagnosis Pancreatitis with pseudocysts, suspected infection Post-Op Diagnosis same Procedure Performed CT abdominal Drains x 3 Surgeon Tesfaye Anesthesia Type: Conscious Sedation Findings 3 abdominal drains, 14F, with turbid pancreatic fluid and necrotic debris in each. Complications No immediate 08/26: Patient today somewhat restless and having bilious secretions from ET tube, imaging studies ordered, discussed with rewards consultant. Pretty poor prognosis, hopefully is not a fistula, poor surgical candidate. 08/27: Imaging with no acute events, she seems more stable today compared to yesterday. Encouraged as much activity as possible patient at high risk for severe depression. Vitals/I&O Vitals/I&O: Vital Signs Date Time Temp Pulse Resp B/P (MAP) Pulse Ox O2 Delivery O2 Flow Rate FiO2 09/12/19 11:09 40 98 Tracheal Collar 8.0 09/12/19 11:00 136 141/80 (100) 09/12/19 08:37 99.6 99.6 I & O 09/11/19 09/11/19 09/12/19 15:00 23:00 07:00 Intake Total 100 ml 893 ml 1003 ml Output Total 1870 ml 1780 ml 1245 ml Balance -1770 ml -887 ml -242 ml Physical Exam Physical Exam: GENERAL: Just got up in the chair having a lot of coughing HEENT: Oral cavity clear, NGT NECK: Trach shield LUNGS: A lot of coughing with productive sputum from the tracheostomy site HEART: S1, S2, regular ABDOMEN: mod distention, hypoactive BS, tender, + drains x 3 : Lind (08/01) EXTREMITIES: Generalized edema, improving, no cyanosis, SCDs bilaterally SKIN: Warm and dry. No generalized rash. [facility]: Very weak RUE-PICC (08/17) clean General: Alert, No acute distress Heart: Regular rate, Normal S1, Normal S2, No murmurs, Gallops Lungs: Other (Good air movement but having a lot of productive sputum from her tracheostomy site) Abdomen: Soft Extremities: No clubbing, No cyanosis, No edema, Normal pulses, No tenderness/swelling Skin: Other (warm, dry) Labs Labs: Laboratory Tests Test 09/11/19 23:39 09/12/19 06:50 09/12/19 06:52 Glucose (Fingerstick) 161 mg/dL (70-99) 135 mg/dL (70-99) Sodium Level 135 mmol/L (136-145) Potassium Level 5.0 mmol/L (3.5-5.1) Chloride Level 97 mmol/L (98-107) Carbon Dioxide Level 34 mmol/L (21-32) Anion Gap 4 (6-14) Blood Urea Nitrogen 24 mg/dL (7-20) Creatinine 0.8 mg/dL (0.6-1.0) Estimated GFR (Cockcroft-Gault) 76.2 BUN/Creatinine Ratio 30 (6-20) Glucose Level 140 mg/dL (70-99) Calcium Level 10.0 mg/dL (8.5-10.1) Phosphorus Level 5.2 mg/dL (2.6-4.7) Magnesium Level 2.3 mg/dL (1.8-2.4) Total Bilirubin 0.7 mg/dL (0.2-1.0) Aspartate Amino Transf (AST/SGOT) 26 U/L (15-37) Alanine Aminotransferase (ALT/SGPT) 25 U/L (14-59) Alkaline Phosphatase 119 U/L (46-116) Total Protein 6.9 g/dL (6.4-8.2) Albumin 2.3 g/dL (3.4-5.0) Albumin/Globulin Ratio 0.5 (1.0-1.7) Triglycerides Level 217 mg/dL (0-150) Assessment and Plan Assessmemt and Plan Problems Medical Problems: (1) Acute pancreatitis Status: Acute (2) Cholelithiasis Status: Acute Acute hypoxic Respiratory failure requiring mechanical ventilation was initially intubated on 07/10 was off for couple of days now back on Severe gallstone pancreatitis (not a surgical candidate at this time) with necrosis Tracheostomy bilateral pleural effusions/pulm edema Severe sepsis Acute kidney failure now requiring dialysis Salpingitis Gallstones (Calculus of gallbladder with acute cholecystitis without obstruction) HTN Leukocytosis Hypoxia Uterine fibroid Intractable pain Intractable nausea Covid 19 negative. Acute on chronic anemia EEG: No seizure activityFever - better currently - intermittent could be from underlying pancreatitis blood cults 08/21 - neg so far ? Ileus with vomiting Abd distention - U/S and CT reviewed s/p 0.4 L of opaque, debris-containing ascites was removed 08/23 Acute pancreatitis with persistent necrosis - 08/14 status post KAYLIN drain placement + C paropsilosis. s/p additional drains 08/25 Anemia - S/p PRBCs Cholelithiasis with thickening of the gallbladder wall. Leucocytosis improving JUANA, hyperkalemia, Metabolic acidosis off dialysis Acute hypoxic resp failure ,bilateral pleural effusion and atelectasis hypocalcemia Prediabetes HTN s/p trach ESRD on HD Hyperglycemia Plan ICU monitoring Wound care Hold off on Ativan for now as she gets too weak with it Humidified O2 via nasal cannula for now but we can use trach shield as backup NG suctioning Nebulizers Continue IV antibiotics and micafungin Sedation with Precedex PRN TPN protocol Continue Lind to bedside drainage Tracheostomy care Hope to eventually move towards decannulation (we have a speaking valve for now) Trend labs Appreciate subspecialist input She is still critically ill I am still very concerned about her long-term prognosis ! (she scored a 9 on Karina criteria 3 weeks ago). Total time 31-minute Comment Review of Relevant I have reviewed the following items kolby (where applicable) has been applied. Medications: Current Medications Medications (Trade) Dose Ordered Sig/Yvon Route PRN Reason Start Time Stop Time Status Last Admin Dose Admin Potassium Chloride 110 meq/ Magnesium Sulfate 20 meq/ Multivitamins 10 ml/Chromium/ Copper/Manganese/ Seleni/Zn 1 ml/ Insulin Human Regular 15 unit/ Total Parenteral Nutrition/Amino Acids/Dextrose/ Fat Emulsion Intravenous 1,800 ml @ 75 mls/hr TPN CONT IV 09/11/19 22:00 09/12/19 21:59 09/11/19 22:48 Hemodynamically unstable?: No Is patient in severe pain?: No Is NPO status required?: Yes BEBO KIRBY III DO September 12, 2019 11:48
[2019-09-12] MEDS: IV NORMAL SALINE 1000ML BAG 1,000 ML IV SCH (13:47)
--- NOTE | 2019-09-12 14:34 | PDOC ---
Provider Note Provider Note DAKOTA Wynne for Dr Servin up to chair awake, alert, conversive has tried a few ice chips continue supportive care Hemodynamically unstable?: No Is patient in severe pain?: No Is NPO status required?: Yes MARV WYNNE MD September 12, 2019 14:34
[2019-09-12] MEDS: MEROPENEM 500 MG in IV NORMAL SALINE 50ML 50 ML IV SCH ×2 (17:48→23:53)
[2019-09-12] MEDS: ENOXAPARIN 40 MG/0.4 ML SYRINGE. SQ SCH (17:48)
--- NOTE | 2019-09-12 18:09 | NUR ---
NG tube clamped from [id number] LIS for 1hr. NG tube clamped again from [id number]. NG to LIS Patient experienced nausea both times tube was clamped, gave Zofran twice. Patient wore speaking valve 2 times today. Once for 1hr another time for 1.75hrs. She does well with the speaking valve on, but she doesn't like it. Reinforced the importance of using the valve, that it will get more comfortable over time and that in order to be able to eat or drink she will need to wear it.
--- NOTE | 2019-09-12 20:39 | NUR ---
Patient very anxious when I came on shift, saying she feels awful and has felt this bad all day. I told her we would need to wear the speaking valve at least 2x tonight with the goal being 2 hours each time. Speaking valve was placed on patient at 1945 and patient still extremely anxious. Bolus of Precedex given and patient seemed to calm down. Patient wore speaking valve for 45 minutes before getting extremely anxious and trying to take speaking valve off herself saying "This is too much, I need it off" and "I'll put it back on later but I can't do it anymore". Speaking valve was taken off after trying to talk patient down with no success and informing her that wearing it for longer periods of time is the only way to work toward getting to eat/drink. She states that she knows this but just can't do it. Will attempt again later.
[2019-09-12] MEDS ORDERED: AMINO ACID IV SCH ×8 (22:00)
[2019-09-12] MEDS ORDERED: TOTAL PARENTERAL NUTRITION IV SCH ×8 (22:00)
[2019-09-12] MEDS ORDERED: DEXTROSE 70% IV SCH ×8 (22:00)
[2019-09-12] MEDS ORDERED: [UNRECOGNIZED DRUG - OTHER] IV SCH ×8 (22:00)
[2019-09-12] MEDS: PROCHLORPERAZINE 10 MG/2 ML VIAL. IV PRN (23:32)
[2019-09-13] VITALS (23 sets, daily range): BP systolic 93–135; BP diastolic 54–83
[2019-09-13] MEDS: fentaNYL PF VIAL 100 MCG/2 ML VIAL IVP PRN ×5 (02:34→21:01)
[2019-09-13] MEDS: MEROPENEM 500 MG in IV NORMAL SALINE 50ML 50 ML IV SCH ×4 (06:01→23:38)
[2019-09-13] MEDS: INSULIN LISPRO 300 UNITS/3 ML VIAL. SQ SCH ×4 (06:02→23:30)
[2019-09-13 06:21] LABS: BASO % 0 % (0-3); EOS # 0.2 x10^3/uL (0.0-0.7); EOS % 2 % (0-3); HEMATOCRIT 24.4 % (36.0-47.0); LYMPH % 17 % (24-48); MEAN CORPUSCULAR HEMOGLOBIN 28 pg (25-35); MEAN CORPUSCULAR HGB CONC 33 g/dL (31-37); MEAN CORPUSCULAR VOLUME 87 fL (79-100); MONO % 9 % (0-9); NEUT # 8.2 x10^3/uL (1.8-7.7); NEUT % 72 % (31-73); PLATELET COUNT 325 x10^3/uL (140-400); RED CELL DISTRIBUTION WIDTH 19.5 % (11.5-14.5); WHITE BLOOD COUNT 11.4 x10^3/uL (4.0-11.0)
[2019-09-13 06:30] LABS: CREATININE 0.9 mg/dL (0.6-1.0); GFR 66.5; POTASSIUM 4.6 mmol/L (3.5-5.1)
--- NOTE | 2019-09-13 06:42 | NUR ---
Speaking valve was placed on patient at 0500. Patient kept saying "just give me a few more minutes" or "lets just do it later", but valve was placed on patient despite her protests. Small bolus of Precedex was given. Patient took valve off at 0530 and said "it's just too much, I can't do it" and said she would put it back on in a little bit. At 0545 the valve was placed back on the patient and she was begging for a Precedex bolus. Bolus was not administered and I told her that since she took the valve off so soon after the bolus last time she did not need another bolus. Patient left valve on until 0640 when she took it off and said she couldn't do it anymore.
[2019-09-13] MEDS: PANTOPRAZOLE IV PUSH 40 MG VIAL. IVP SCH (08:01)
[2019-09-13] MEDS: FUROSEMIDE 40 MG/4 ML VIAL. IVP SCH ×2 (08:01→15:00)
[2019-09-13] MEDS: DEXMEDETOMIDINE 400 MCG in IV NORMAL SALINE 100ML 96 ML IV PRN ×2 (08:07→15:16)
--- NOTE | 2019-09-13 08:35 | PDOC ---
Infectious Disease Note Subjective: Subjective Patient resting quietly on trach shield, T max 100.4 afebrile this a.m. Vital Signs: Vital Signs Vital Signs Date Time Temp Pulse Resp B/P (MAP) Pulse Ox O2 Delivery O2 Flow Rate FiO2 09/13/19 07:00 99 15 109/58 (75) 99 Tracheal Collar 8.0 09/13/19 04:00 98.2 98.2 Physical Exam: PHYSICAL EXAM GENERAL: Just got up in the chair having a lot of coughing HEENT: Oral cavity clear, NGT NECK: Trach shield LUNGS: A lot of coughing with productive sputum from the tracheostomy site HEART: S1, S2, regular ABDOMEN: mod distention, hypoactive BS, tender, + drains x 3 : Lind (08/01) EXTREMITIES: Generalized edema, improving, no cyanosis, SCDs bilaterally SKIN: Warm and dry. No generalized rash. 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 RUE-PICC (08/17) clean Medications: Inpatient Meds: Current Medications Medications (Trade) Dose Ordered Sig/Yvon Start Time Stop Time Status Last Admin Dose Admin Acetaminophen (Tylenol Supp) 650 mg PRN Q6HRS PRN 07/12/19 10:30 08/23/19 09:12 650 MG Acetaminophen (Tylenol) 650 mg PRN Q6HRS PRN 07/09/19 03:36 08/31/19 10:25 DC 08/04/19 19:56 650 MG Albumin Human 100 ml @ 100 mls/hr 1X PRN PRN 09/06/19 01:30 Albuterol Sulfate (Ventolin Neb Soln) 2.5 mg 1X ONCE 07/05/19 22:30 07/05/19 22:31 DC 07/06/19 00:56 2.5 MG Alteplase, Recombinant (Cathflo For Central Catheter Clearance) 1 mg 1X ONCE 08/12/19 10:45 08/12/19 10:46 DC 08/12/19 11:44 1 MG Amino Acids/ Glycerin/ Electrolytes 1,000 ml @ 75 mls/hr [id number] 08/08/19 21:15 UNV Artificial Tears (Artificial Tears) 1 drop PRN Q15MIN PRN 08/17/19 05:30 09/11/19 11:15 1 DROP Atenolol (Tenormin) 100 mg DAILY 07/05/19 09:00 07/04/19 20:08 DC Atropine Sulfate (ATROPINE 0.5mg SYRINGE) 0.5 mg PRN Q5MIN PRN 07/21/19 08:15 Benzocaine (Hurricaine One) 1 spray 1X ONCE 07/08/19 14:30 07/08/19 14:31 DC 07/08/19 16:38 1 SPRAY Bisacodyl (Dulcolax Supp) 10 mg STK-MED ONCE 08/15/19 10:59 08/15/19 10:59 DC Bumetanide (Bumex) 2 mg DAILY 08/26/19 10:00 09/05/19 17:15 DC 09/05/19 08:07 2 MG Bupivacaine HCl/ Epinephrine Bitart (Sensorcain-Epi 0.5%-1:219147 Mpf) 30 ml STK-MED ONCE 08/15/19 10:58 08/15/19 10:58 DC 08/15/19 12:01 7 ML Calcium Carbonate/ Glycine (Tums) 500 mg PRN AFTMEALHC PRN 07/06/19 17:45 08/31/19 10:25 DC Calcium Chloride 1000 mg/Sodium Chloride 110 ml @ 220 mls/hr 1X ONCE 07/05/19 22:30 07/05/19 22:59 DC 07/05/19 22:11 220 MLS/HR Calcium Chloride 3000 mg/Sodium Chloride 1,030 ml @ 50 mls/hr [id number] 07/07/19 08:00 07/09/19 15:23 DC 07/09/19 02:17 50 MLS/HR Calcium Gluconate (Calcium Gluconate) 2,000 mg 1X ONCE 07/07/19 02:15 07/07/19 02:16 DC 07/07/19 02:19 2,000 MG Calcium Gluconate 1000 mg/Sodium Chloride 110 ml @ 220 mls/hr 1X ONCE 07/06/19 03:30 07/06/19 03:59 DC 07/06/19 03:21 220 MLS/HR Calcium Gluconate 2000 mg/Sodium Chloride 120 ml @ 220 mls/hr 1X ONCE 07/06/19 07:30 07/06/19 08:02 DC 07/06/19 09:05 220 MLS/HR Cefepime HCl (Maxipime) 2 gm Q12HR 3/25/20 09:00 07/27/19 09:58 DC 07/26/19 20:56 2 GM Cellulose (Surgicel Fibrillar 1x2) 1 each STK-MED ONCE 07/25/19 11:00 07/25/19 11:01 DC Cellulose (Surgicel Hemostat 2x14) 1 each STK-MED ONCE 08/15/19 10:58 08/15/19 10:59 DC Cellulose (Surgicel Hemostat 4x8) 1 each STK-MED ONCE 08/15/19 10:58 08/15/19 10:59 DC Cyclobenzaprine HCl (Flexeril) 10 mg PRN Q6HRS PRN 08/18/19 10:45 Daptomycin 430 mg/ Sodium Chloride 50 ml @ 100 mls/hr Q24H 08/13/19 13:00 08/18/19 20:58 DC 08/18/19 13:00 100 MLS/HR Daptomycin 450 mg/ Sodium Chloride 50 ml @ 100 mls/hr Q24H 09/04/19 09:00 09/08/19 08:30 DC 09/07/19 09:25 100 MLS/HR Daptomycin 485 mg/ Sodium Chloride 50 ml @ 100 mls/hr Q24H 08/22/19 11:00 08/30/19 07:44 DC 08/29/19 13:10 100 MLS/HR Daptomycin 500 mg/ Sodium Chloride 50 ml @ 100 mls/hr Q48H 07/13/19 08:30 07/29/19 10:07 DC 07/29/19 09:57 100 MLS/HR Dexamethasone Sodium Phosphate (Decadron) 4 mg STK-MED ONCE 08/15/19 10:56 08/15/19 10:57 DC Dexmedetomidine HCl 400 mcg/ Sodium Chloride 100 ml @ 0 mls/hr CONT PRN 07/21/19 08:15 09/13/19 08:07 5.4 MLS/HR Dextrose (Dextrose 50%-Water Syringe) 12.5 gm PRN Q15MIN PRN 07/04/19 09:30 Digoxin (Lanoxin) 125 mcg 1X ONCE 07/07/19 18:00 07/07/19 18:01 DC 07/07/19 17:10 125 MCG Diphenhydramine HCl (Benadryl) 25 mg 1X PRN PRN 08/12/19 15:45 08/13/19 15:44 DC Duloxetine HCl (Cymbalta) 30 mg DAILY 08/28/19 14:00 08/31/19 10:25 DC 08/29/19 09:48 30 MG Enoxaparin Sodium (Lovenox 100mg Syringe) 100 mg Q12HR 08/09/19 21:00 UNV Enoxaparin Sodium (Lovenox 40mg Syringe) 40 mg Q24H 09/04/19 17:00 09/12/19 17:48 40 MG Etomidate (Amidate) 8 mg 1X ONCE 07/11/19 08:30 07/11/19 08:31 DC 07/11/19 08:33 8 MG Fentanyl Citrate (Fentanyl 2ml Vial) 25 mcg PRN Q4HRS PRN 09/05/19 13:15 09/11/19 06:36 25 MCG Fentanyl Citrate (Fentanyl 5ml Vial) 250 mcg 1X ONCE 08/26/19 09:15 08/26/19 09:16 DC 08/26/19 09:30 50 MCG Furosemide (Lasix) 40 mg [id number] 09/06/19 14:00 09/13/19 08:01 40 MG Haloperidol Lactate (Haldol Inj) 3 mg 1X ONCE 08/22/19 14:30 08/22/19 14:31 DC 08/22/19 14:37 3 MG Heparin Sodium (Porcine) (Hep Lock Adult) 500 unit STK-MED ONCE 07/26/19 09:29 07/26/19 09:30 DC Heparin Sodium (Porcine) (Heparin Sodium) 5,000 unit Q12HR 08/15/19 21:00 08/25/19 09:59 DC 08/24/19 20:57 5,000 UNIT Heparin Sodium (Porcine) 1000 unit/Sodium Chloride 1,001 ml @ 1,001 mls/hr 1X ONCE 08/15/19 12:00 08/15/19 12:59 DC Hydromorphone HCl (Dilaudid Standard [employer]) 12 mg STK-MED ONCE 08/19/19 15:50 08/30/19 11:24 DC Hydromorphone HCl (Dilaudid) 1 mg PRN Q4HRS PRN 08/22/19 19:00 09/05/19 17:10 DC 09/05/19 06:25 1 MG Info (CONTRAST GIVEN -- Rx MONITORING) 1 each PRN DAILY PRN 07/18/19 11:45 07/20/19 11:44 DC Info (Icu Electrolyte Protocol) 1 ea CONT PRN PRN 07/17/19 13:15 Info (PHARMACY MONITORING -- do not chart) 1 each PRN DAILY PRN 08/12/19 15:45 Info (Tpn Per Pharmacy) 1 each PRN DAILY PRN 07/06/19 12:30 UNV Insulin Human Lispro (HumaLOG) 0-9 UNITS Q6HRS 07/04/19 09:30 09/13/19 06:02 4 UNITS Insulin Human Regular (HumuLIN R VIAL) 5 unit 1X ONCE 07/05/19 22:30 07/05/19 22:31 DC 07/05/19 22:14 5 UNIT Iohexol (Omnipaque 240 Mg/ml) 30 ml 1X ONCE 07/18/19 11:30 07/18/19 11:33 DC 07/18/19 11:30 30 ML Iohexol (Omnipaque 300 Mg/ml) 50 ml STK-MED ONCE 08/15/19 10:58 08/15/19 10:59 DC Iohexol (Omnipaque 350 Mg/ml) 90 ml 1X ONCE 07/04/19 03:30 07/04/19 03:31 DC 07/04/19 03:25 90 ML Ketorolac Tromethamine (Toradol 30mg Vial) 30 mg 1X ONCE 07/04/19 03:00 07/04/19 03:01 DC 07/04/19 02:54 30 MG Lidocaine HCl (Buffered Lidocaine 1%) 6 ml 1X ONCE 08/30/19 14:15 08/30/19 14:16 DC 08/30/19 14:15 3 ML Lidocaine HCl (Glydo (Lidocaine) Jelly) 1 ramu 1X ONCE 07/08/19 14:30 07/08/19 14:31 DC 07/08/19 16:38 1 RAMU Lidocaine HCl (Xylocaine-Mpf 1% 2ml Vial) 2 ml PRN 1X PRN 08/15/19 07:00 08/16/19 06:59 DC Linezolid/Dextrose 300 ml @ 300 mls/hr Q12HR 09/04/19 09:00 09/07/19 08:11 DC 09/06/19 21:08 300 MLS/HR Lorazepam (Ativan Inj) 2 mg PRN Q4HRS PRN 09/04/19 19:15 09/05/19 22:20 2 MG Magnesium Sulfate 50 ml @ 25 mls/hr 1X ONCE 08/28/19 09:00 08/28/19 10:59 DC 08/28/19 10:44 25 MLS/HR Meropenem 1 gm/ Sodium Chloride 100 ml @ 200 mls/hr Q8HRS 08/16/19 14:00 09/09/19 09:31 DC 09/09/19 05:53 200 MLS/HR Meropenem 500 mg/ Sodium Chloride 50 ml @ 100 mls/hr Q6HRS 09/12/19 18:00 09/13/19 06:01 100 MLS/HR Metoclopramide HCl (Reglan Vial) 10 mg PRN Q3HRS PRN 08/27/19 16:45 09/01/19 04:25 10 MG Metoprolol Tartrate (Lopressor Vial) 5 mg 1X ONCE 09/04/19 15:15 09/04/19 15:16 DC 09/04/19 15:31 5 MG Metronidazole 100 ml @ 100 mls/hr Q8HRS 08/02/19 10:00 08/09/19 08:10 DC 08/09/19 06:04 100 MLS/HR Micafungin Sodium 100 mg/Dextrose 100 ml @ 100 mls/hr Q24H 08/22/19 11:00 09/12/19 11:11 100 MLS/HR Midazolam HCl (Versed) 5 mg 1X ONCE 08/26/19 09:15 08/26/19 09:16 DC 08/26/19 09:30 1 MG Midazolam HCl 100 mg/Sodium Chloride 100 ml @ 7 mls/hr CONT PRN 07/16/19 16:00 07/27/19 15:35 7 MLS/HR Midazolam HCl 50 mg/Sodium Chloride 50 ml @ 0 mls/hr CONT PRN 07/11/19 08:15 07/16/19 15:59 DC 07/14/19 22:39 7 MLS/HR Morphine Sulfate (Morphine Sulfate) 2 mg PRN Q2HR PRN 07/04/19 05:00 07/05/19 14:15 DC 07/05/19 12:26 2 MG Multi-Ingred Cream/Lotion/Oil/ Oint (Artificial Tears Eye Ointment) 1 ramu PRN Q1HR PRN 07/13/19 17:30 08/01/19 08:19 1 RAMU Naloxone HCl (Narcan) 0.4 mg PRN Q2MIN PRN 08/15/19 14:30 UNV Norepinephrine Bitartrate 8 mg/ Dextrose 258 ml @ 17.299 mls/ hr CONT PRN 07/05/19 15:30 08/05/19 09:19 DC 08/02/19 12:48 20.9 MLS/HR Ondansetron HCl (Zofran) 4 mg STK-MED ONCE 08/15/19 10:56 08/15/19 10:57 DC Pantoprazole Sodium (PROTONIX VIAL for IV PUSH) 40 mg DAILYAC 07/04/19 11:30 09/13/19 08:01 40 MG Phenylephrine HCl (PHENYLEPHRINE in 0.9% NACL PF) 1 mg STK-MED ONCE 08/15/19 12:34 08/15/19 12:34 DC Piperacillin Sod/ Tazobactam Sod 4.5 gm/Sodium Chloride 100 ml @ 200 mls/hr 1X ONCE 07/04/19 06:00 07/04/19 06:29 DC 07/04/19 05:44 200 MLS/HR Potassium Chloride 110 meq/ Magnesium Sulfate 20 meq/ Multivitamins 10 ml/Chromium/ Copper/Manganese/ Seleni/Zn 1 ml/ Insulin Human Regular 15 unit/ Total Parenteral Nutrition/Amino Acids/Dextrose/ Fat Emulsion Intravenous 1,800 ml @ 75 mls/hr TPN CONT 09/11/19 22:00 09/12/19 21:59 DC 09/11/19 22:48 75 MLS/HR Potassium Chloride 15 meq/ Bicarbonate Dialysis Soln w/ out KCl 5,007.5 ml @ 1,000 mls/ hr Q5H1M 07/17/19 20:00 07/21/19 13:08 DC 07/20/19 18:14 1,000 MLS/HR Potassium Chloride 20 meq/ Bicarbonate Dialysis Soln w/ out KCl 5,010 ml @ 1,000 mls/hr Q5H1M 07/13/19 16:00 07/17/19 19:59 DC 07/17/19 14:54 1,000 MLS/HR Potassium Chloride 70 meq/ Magnesium Sulfate 20 meq/ Multivitamins 10 ml/Chromium/ Copper/Manganese/ Seleni/Zn 1 ml/ Insulin Human Regular 15 unit/ Total Parenteral Nutrition/Amino Acids/Dextrose/ Fat Emulsion Intravenous 1,800 ml @ 75 mls/hr TPN CONT 09/12/19 22:00 09/13/19 21:59 09/12/19 21:39 75 MLS/HR Potassium Chloride 75 meq/ Magnesium Sulfate 15 meq/ Multivitamins 10 ml/Chromium/ Copper/Manganese/ Seleni/Zn 0.5 ml/ Insulin Human Regular 15 unit/ Total Parenteral Nutrition/Amino Acids/Dextrose/ Fat Emulsion Intravenous 1,920 ml @ 80 mls/hr TPN CONT 08/27/19 22:00 08/28/19 21:59 DC 08/27/19 22:41 80 MLS/HR Potassium Chloride 75 meq/ Magnesium Sulfate 15 meq/Calcium Gluconate 8 meq/ Multivitamins 10 ml/Chromium/ Copper/Manganese/ Seleni/Zn 0.5 ml/ Insulin Human Regular 15 unit/ Total Parenteral Nutrition/Amino Acids/Dextrose/ Fat Emulsion Intravenous 1,920 ml @ 80 mls/hr TPN CONT 08/25/19 22:00 08/26/19 21:59 DC 08/25/19 22:28 80 MLS/HR Potassium Chloride 75 meq/ Magnesium Sulfate 15 meq/Calcium Gluconate 8 meq/ Multivitamins 10 ml/Chromium/ Copper/Manganese/ Seleni/Zn 0.5 ml/ Insulin Human Regular 20 unit/ Total Parenteral Nutrition/Amino Acids/Dextrose/ Fat Emulsion Intravenous 1,920 ml @ 80 mls/hr TPN CONT 08/24/19 22:00 08/25/19 21:59 DC 08/24/19 22:00 80 MLS/HR Potassium Chloride 75 meq/ Magnesium Sulfate 15 meq/Calcium Gluconate 8 meq/ Multivitamins 10 ml/Chromium/ Copper/Manganese/ Seleni/Zn 0.5 ml/ Insulin Human Regular 25 unit/ Total Parenteral Nutrition/Amino Acids/Dextrose/ Fat Emulsion Intravenous 1,920 ml @ 80 mls/hr TPN CONT 08/22/19 22:00 08/23/19 21:59 DC 08/22/19 23:08 80 MLS/HR Potassium Chloride 75 meq/ Magnesium Sulfate 20 meq/Calcium Gluconate 10 meq/ Multivitamins 10 ml/Chromium/ Copper/Manganese/ Seleni/Zn 0.5 ml/ Insulin Human Regular 25 unit/ Total Parenteral Nutrition/Amino Acids/Dextrose/ Fat Emulsion Intravenous 1,920 ml @ 80 mls/hr TPN CONT 08/21/19 22:00 08/22/19 21:59 DC 08/21/19 22:04 80 MLS/HR Potassium Chloride 75 meq/ Magnesium Sulfate 20 meq/Calcium Gluconate 10 meq/ Multivitamins 10 ml/Chromium/ Copper/Manganese/ Seleni/Zn 0.5 ml/ Insulin Human Regular 30 unit/ Total Parenteral Nutrition/Amino Acids/Dextrose/ Fat Emulsion Intravenous 1,920 ml @ 80 mls/hr TPN CONT 08/20/19 22:00 08/21/19 22:00 DC 08/20/19 21:51 80 MLS/HR Potassium Chloride 80 meq/ Magnesium Sulfate 20 meq/ Multivitamins 10 ml/Chromium/ Copper/Manganese/ Seleni/Zn 0.5 ml/ Insulin Human Regular 15 unit/ Total Parenteral Nutrition/Amino Acids/Dextrose/ Fat Emulsion Intravenous 1,920 ml @ 80 mls/hr TPN CONT 08/30/19 22:00 08/31/19 21:59 DC 08/30/19 21:40 80 MLS/HR Potassium Chloride 80 meq/ Magnesium Sulfate 20 meq/ Multivitamins 10 ml/Chromium/ Copper/Manganese/ Seleni/Zn 1 ml/ Insulin Human Regular 15 unit/ Total Parenteral Nutrition/Amino Acids/Dextrose/ Fat Emulsion Intravenous 1,920 ml @ 80 mls/hr TPN CONT 08/31/19 22:00 09/01/19 21:59 DC 08/31/19 22:04 80 MLS/HR Potassium Chloride 90 meq/ Magnesium Sulfate 20 meq/ Multivitamins 10 ml/Chromium/ Copper/Manganese/ Seleni/Zn 1 ml/ Insulin Human Regular 15 unit/ Total Parenteral Nutrition/Amino Acids/Dextrose/ Fat Emulsion Intravenous 1,800 ml @ 75 mls/hr TPN CONT 09/07/19 22:00 09/08/19 21:59 DC 09/07/19 22:28 75 MLS/HR Potassium Chloride/Water 100 ml @ 100 mls/hr 1X ONCE 09/01/19 11:00 09/01/19 11:59 DC 09/01/19 11:34 100 MLS/HR Potassium Phosphate 20 mmol/ Sodium Chloride 106.6667 ml @ 51.667 m... 1X ONCE 07/13/19 13:00 07/13/19 15:03 DC 07/13/19 12:51 51.667 MLS/HR Potassium Acetate 30 meq/Magnesium Sulfate 20 meq/ Calcium Gluconate 10 meq/ Multivitamins 10 ml/Chromium/ Copper/Manganese/ Seleni/Zn 0.5 ml/ Insulin Human Regular 30 unit/ Potassium Chloride 30 meq/ Total Parenteral Nutrition/Amino Acids/Dextrose/ Fat Emulsion Intravenous 1,920 ml @ 80 mls/hr TPN CONT 08/19/19 22:00 08/20/19 21:59 DC 08/19/19 22:34 80 MLS/HR Potassium Acetate 55 meq/Magnesium Sulfate 20 meq/ Calcium Gluconate 10 meq/ Multivitamins 10 ml/Chromium/ Copper/Manganese/ Seleni/Zn 0.5 ml/ Insulin Human Regular 30 unit/ Total Parenteral Nutrition/Amino Acids/Dextrose/ Fat Emulsion Intravenous 1,920 ml @ 80 mls/hr TPN CONT 08/18/19 22:00 08/19/19 21:59 DC 08/19/19 01:00 80 MLS/HR Potassium Acetate 55 meq/Magnesium Sulfate 20 meq/ Calcium Gluconate 10 meq/ Multivitamins 10 ml/Chromium/ Copper/Manganese/ Seleni/Zn 0.5 ml/ Insulin Human Regular 35 unit/ Total Parenteral Nutrition/Amino Acids/Dextrose/ Fat Emulsion Intravenous 1,920 ml @ 80 mls/hr TPN CONT 08/16/19 22:00 08/17/19 21:59 DC 08/16/19 22:02 80 MLS/HR Potassium Acetate 65 meq/Magnesium Sulfate 20 meq/ Calcium Gluconate 10 meq/ Multivitamins 10 ml/Chromium/ Copper/Manganese/ Seleni/Zn 0.5 ml/ Insulin Human Regular 30 unit/ Total Parenteral Nutrition/Amino Acids/Dextrose/ Fat Emulsion Intravenous 1,920 ml @ 80 mls/hr TPN CONT 08/17/19 22:00 08/18/19 21:59 DC 08/17/19 22:22 80 MLS/HR Prochlorperazine Edisylate (Compazine) 5 mg PACU PRN PRN 08/15/19 07:00 08/16/19 06:59 DC Propofol 20 ml @ As Directed STK-MED ONCE 08/15/19 12:26 08/15/19 12:27 DC Ringer's Solution 1,000 ml @ 30 mls/hr Q24H 08/15/19 07:00 08/15/19 18:59 DC Rocuronium [place] (Zemuron) 50 mg STK-MED ONCE 08/15/19 10:56 08/15/19 10:57 DC Saliva Substitute (Biotene Moisturizing Mouth) 2 spray PRN Q15MIN PRN 09/08/19 11:00 Sevoflurane (Ultane) 60 ml STK-MED ONCE 08/15/19 12:26 08/15/19 12:27 DC Sodium Bicarbonate 50 meq/Sodium Chloride 1,050 ml @ 75 mls/hr Q14H 07/06/19 07:30 07/11/19 10:28 DC 07/10/19 21:10 75 MLS/HR Sodium Acetate 50 meq/Potassium Acetate 55 meq/ Magnesium Sulfate 20 meq/Calcium Gluconate 10 meq/ Multivitamins 10 ml/Chromium/ Copper/Manganese/ Seleni/Zn 0.5 ml/ Insulin Human Regular 35 unit/ Total Parenteral Nutrition/Amino Acids/Dextrose/ Fat Emulsion Intravenous 1,800 ml @ 75 mls/hr TPN CONT 08/13/19 22:00 08/14/19 21:59 DC 08/13/19 22:03 75 MLS/HR Sodium Chloride 1,000 ml @ 25 mls/hr Q24H 08/15/19 14:30 UNV Sodium Chloride (Normal Saline Flush) 3 ml QSHIFT PRN 08/15/19 13:45 Sodium Chloride 90 meq/Calcium Gluconate 10 meq/ Multivitamins 10 ml/Chromium/ Copper/Manganese/ Seleni/Zn 0.5 ml/ Total Parenteral Nutrition/Amino Acids/Dextrose/ Fat Emulsion Intravenous 1,512 ml @ 63 mls/hr TPN CONT 07/06/19 22:00 07/07/19 21:59 DC 07/06/19 22:06 63 MLS/HR Sodium Chloride 90 meq/Calcium Gluconate 10 meq/ Multivitamins 10 ml/Chromium/ Copper/Manganese/ Seleni/Zn 1 ml/ Total Parenteral Nutrition/Amino Acids/Dextrose/ Fat Emulsion Intravenous 55.005 ml @ 2.292 mls/hr TPN CONT 07/06/19 22:00 07/06/19 12:33 DC Sodium Chloride 90 meq/Magnesium Sulfate 10 meq/ Calcium Gluconate 20 meq/ Multivitamins 10 ml/Chromium/ Copper/Manganese/ Seleni/Zn 0.5 ml/ Total Parenteral Nutrition/Amino Acids/Dextrose/ Fat Emulsion Intravenous 1,512 ml @ 63 mls/hr TPN CONT 07/07/19 22:00 07/08/19 21:59 DC 07/07/19 22:25 63 MLS/HR Sodium Chloride 90 meq/Magnesium Sulfate 12 meq/ Calcium Gluconate 15 meq/ Multivitamins 10 ml/Chromium/ Copper/Manganese/ Seleni/Zn 0.5 ml/ Insulin Human Regular 25 unit/ Total Parenteral Nutrition/Amino Acids/Dextrose/ Fat Emulsion Intravenous 1,400 ml @ 58.333 mls/ hr TPN CONT 07/27/19 22:00 07/28/19 21:59 DC 07/27/19 21:41 58.333 MLS/HR Sodium Chloride 90 meq/Potassium Chloride 15 meq/ Magnesium Sulfate 12 meq/Calcium Gluconate 15 meq/ Multivitamins 10 ml/Chromium/ Copper/Manganese/ Seleni/Zn 0.5 ml/ Insulin Human Regular 25 unit/ Total Parenteral Nutrition/Amino Acids/Dextrose/ Fat Emulsion Intravenous 1,400 ml @ 58.333 mls/ hr TPN CONT 07/26/19 22:00 07/27/19 21:59 DC 07/26/19 22:13 58.333 MLS/HR Sodium Chloride 90 meq/Potassium Chloride 15 meq/ Potassium Phosphate 10 mmol/ Magnesium Sulfate 8 meq/Calcium Gluconate 15 meq/ Multivitamins 10 ml/Chromium/ Copper/Manganese/ Seleni/Zn 0.5 ml/ Insulin Human Regular 25 unit/ Total Parenteral Nutrition/Amino Acids/Dextrose/ Fat Emulsion Intravenous 1,400 ml @ 58.333 mls/ hr TPN CONT 07/24/19 22:00 07/25/19 21:59 DC 07/24/19 21:20 58.333 MLS/HR Sodium Chloride 90 meq/Potassium Chloride 15 meq/ Potassium Phosphate 10 mmol/ Magnesium Sulfate 10 meq/Calcium Gluconate 20 meq/ Multivitamins 10 ml/Chromium/ Copper/Manganese/ Seleni/Zn 0.5 ml/ Total Parenteral Nutrition/Amino Acids/Dextrose/ Fat Emulsion Intravenous 1,400 ml @ 58.333 mls/ hr TPN CONT 07/11/19 22:00 07/12/19 21:59 DC 07/11/19 21:42 58.333 MLS/HR Sodium Chloride 90 meq/Potassium Chloride 15 meq/ Potassium Phosphate 10 mmol/ Magnesium Sulfate 12 meq/Calcium Gluconate 15 meq/ Multivitamins 10 ml/Chromium/ Copper/Manganese/ Seleni/Zn 0.5 ml/ Insulin Human Regular 25 unit/ Total Parenteral Nutrition/Amino Acids/Dextrose/ Fat Emulsion Intravenous 1,400 ml @ 58.333 mls/ hr TPN CONT 07/25/19 22:00 07/26/19 21:59 DC 07/25/19 22:24 58.333 MLS/HR Sodium Chloride 90 meq/Potassium Chloride 15 meq/ Potassium Phosphate 15 mmol/ Magnesium Sulfate 10 meq/Calcium Gluconate 15 meq/ Multivitamins 10 ml/Chromium/ Copper/Manganese/ Seleni/Zn 0.5 ml/ Total Parenteral Nutrition/Amino Acids/Dextrose/ Fat Emulsion Intravenous 1,400 ml @ 58.333 mls/ hr TPN CONT 07/12/19 22:00 07/13/19 21:59 DC 07/12/19 22:17 58.333 MLS/HR Sodium Chloride 90 meq/Potassium Chloride 15 meq/ Potassium Phosphate 15 mmol/ Magnesium Sulfate 10 meq/Calcium Gluconate 20 meq/ Multivitamins 10 ml/Chromium/ Copper/Manganese/ Seleni/Zn 0.5 ml/ Total Parenteral Nutrition/Amino Acids/Dextrose/ Fat Emulsion Intravenous 1,200 ml @ 50 mls/hr TPN CONT 07/10/19 22:00 07/10/19 14:17 DC Sodium Chloride 90 meq/Potassium Chloride 15 meq/ Potassium Phosphate 18 mmol/ Magnesium Sulfate 8 meq/Calcium Gluconate 15 meq/ Multivitamins 10 ml/Chromium/ Copper/Manganese/ Seleni/Zn 0.5 ml/ Insulin Human Regular 10 unit/ Total Parenteral Nutrition/Amino Acids/Dextrose/ Fat Emulsion Intravenous 1,400 ml @ 58.333 mls/ hr TPN CONT 07/15/19 22:00 07/16/19 21:59 DC 07/15/19 21:43 58.333 MLS/HR Sodium Chloride 90 meq/Potassium Chloride 15 meq/ Potassium Phosphate 18 mmol/ Magnesium Sulfate 8 meq/Calcium Gluconate 15 meq/ Multivitamins 10 ml/Chromium/ Copper/Manganese/ Seleni/Zn 0.5 ml/ Insulin Human Regular 15 unit/ Total Parenteral Nutrition/Amino Acids/Dextrose/ Fat Emulsion Intravenous 1,400 ml @ 58.333 mls/ hr TPN CONT 07/18/19 22:00 07/19/19 21:59 DC 07/18/19 21:47 58.333 MLS/HR Sodium Chloride 90 meq/Potassium Chloride 15 meq/ Potassium Phosphate 18 mmol/ Magnesium Sulfate 8 meq/Calcium Gluconate 15 meq/ Multivitamins 10 ml/Chromium/ Copper/Manganese/ Seleni/Zn 0.5 ml/ Insulin Human Regular 20 unit/ Total Parenteral Nutrition/Amino Acids/Dextrose/ Fat Emulsion Intravenous 1,400 ml @ 58.333 mls/ hr TPN CONT 07/21/19 22:00 07/22/19 21:59 DC 07/21/19 22:45 58.333 MLS/HR Sodium Chloride 90 meq/Potassium Chloride 15 meq/ Potassium Phosphate 18 mmol/ Magnesium Sulfate 8 meq/Calcium Gluconate 15 meq/ Multivitamins 10 ml/Chromium/ Copper/Manganese/ Seleni/Zn 0.5 ml/ Total Parenteral Nutrition/Amino Acids/Dextrose/ Fat Emulsion Intravenous 1,400 ml @ 58.333 mls/ hr TPN CONT 07/14/19 22:00 07/15/19 21:59 DC 07/14/19 22:00 58.333 MLS/HR Sodium Chloride 90 meq/Potassium Phosphate 15 mmol/ Magnesium Sulfate 12 meq/Calcium Gluconate 15 meq/ Multivitamins 10 ml/Chromium/ Copper/Manganese/ Seleni/Zn 0.5 ml/ Insulin Human Regular 30 unit/ Total Parenteral Nutrition/Amino Acids/Dextrose/ Fat Emulsion Intravenous 1,400 ml @ 58.333 mls/ hr TPN CONT 07/29/19 22:00 07/30/19 21:59 DC 07/29/19 21:49 58.333 MLS/HR Sodium Chloride 90 meq/Potassium Phosphate 15 mmol/ Magnesium Sulfate 12 meq/Calcium Gluconate 15 meq/ Multivitamins 10 ml/Chromium/ Copper/Manganese/ Seleni/Zn 0.5 ml/ Insulin Human Regular 40 unit/ Total Parenteral Nutrition/Amino Acids/Dextrose/ Fat Emulsion Intravenous 1,400 ml @ 58.333 mls/ hr TPN CONT 07/30/19 22:00 07/31/19 21:59 DC 07/30/19 21:21 58.333 MLS/HR Sodium Chloride 90 meq/Potassium Phosphate 19 mmol/ Magnesium Sulfate 12 meq/Calcium Gluconate 15 meq/ Multivitamins 10 ml/Chromium/ Copper/Manganese/ Seleni/Zn 0.5 ml/ Insulin Human Regular 40 unit/ Total Parenteral Nutrition/Amino Acids/Dextrose/ Fat Emulsion Intravenous 1,400 ml @ 58.333 mls/ hr TPN CONT 07/31/19 22:00 08/01/19 21:59 DC 07/31/19 21:54 58.333 MLS/HR Sodium Chloride 90 meq/Potassium Phosphate 5 mmol/ Magnesium Sulfate 12 meq/Calcium Gluconate 15 meq/ Multivitamins 10 ml/Chromium/ Copper/Manganese/ Seleni/Zn 0.5 ml/ Insulin Human Regular 30 unit/ Total Parenteral Nutrition/Amino Acids/Dextrose/ Fat Emulsion Intravenous 1,400 ml @ 58.333 mls/ hr TPN CONT 07/28/19 22:00 07/29/19 21:59 DC 07/28/19 22:08 58.333 MLS/HR Sodium Chloride 100 meq/Potassium Chloride 40 meq/ Magnesium Sulfate 15 meq/Calcium Gluconate 15 meq/ Multivitamins 10 ml/Chromium/ Copper/Manganese/ Seleni/Zn 0.5 ml/ Insulin Human Regular 35 unit/ Total Parenteral Nutrition/Amino Acids/Dextrose/ Fat Emulsion Intravenous 1,400 ml @ 58.333 mls/ hr TPN CONT 08/07/19 22:00 08/08/19 21:59 DC 08/07/19 22:46 58.333 MLS/HR Sodium Chloride 100 meq/Potassium Chloride 40 meq/ Magnesium Sulfate 20 meq/Calcium Gluconate 10 meq/ Multivitamins 10 ml/Chromium/ Copper/Manganese/ Seleni/Zn 0.5 ml/ Insulin Human Regular 35 unit/ Total Parenteral Nutrition/Amino Acids/Dextrose/ Fat Emulsion Intravenous 1,400 ml @ 58.333 mls/ hr TPN CONT 08/11/19 22:00 08/12/19 21:59 DC 08/12/19 00:06 58.333 MLS/HR Sodium Chloride 100 meq/Potassium Chloride 40 meq/ Magnesium Sulfate 20 meq/Calcium Gluconate 15 meq/ Multivitamins 10 ml/Chromium/ Copper/Manganese/ Seleni/Zn 0.5 ml/ Insulin Human Regular 35 unit/ Total Parenteral Nutrition/Amino Acids/Dextrose/ Fat Emulsion Intravenous 1,400 ml @ 58.333 mls/ hr TPN CONT 08/10/19 22:00 08/11/19 21:59 DC 08/10/19 22:27 58.333 MLS/HR Sodium Chloride 100 meq/Potassium Phosphate 10 mmol/ Magnesium Sulfate 12 meq/Calcium Gluconate 15 meq/ Multivitamins 10 ml/Chromium/ Copper/Manganese/ Seleni/Zn 0.5 ml/ Insulin Human Regular 35 unit/ Potassium Chloride 20 meq/ Total Parenteral Nutrition/Amino Acids/Dextrose/ Fat Emulsion Intravenous 1,400 ml @ 58.333 mls/ hr TPN CONT 08/04/19 22:00 08/05/19 21:59 DC 08/04/19 22:10 58.333 MLS/HR Sodium Chloride 100 meq/Potassium Phosphate 19 mmol/ Magnesium Sulfate 12 meq/Calcium Gluconate 15 meq/ Multivitamins 10 ml/Chromium/ Copper/Manganese/ Seleni/Zn 0.5 ml/ Insulin Human Regular 40 unit/ Potassium Chloride 20 meq/ Total Parenteral Nutrition/Amino Acids/Dextrose/ Fat Emulsion Intravenous 1,400 ml @ 58.333 mls/ hr TPN CONT 08/03/19 22:00 08/04/19 21:59 DC 08/03/19 21:20 58.333 MLS/HR Sodium Chloride 100 meq/Potassium Phosphate 5 mmol/ Magnesium Sulfate 12 meq/Calcium Gluconate 15 meq/ Multivitamins 10 ml/Chromium/ Copper/Manganese/ Seleni/Zn 0.5 ml/ Insulin Human Regular 35 unit/ Potassium Chloride 20 meq/ Total Parenteral Nutrition/Amino Acids/Dextrose/ Fat Emulsion Intravenous 1,400 ml @ 58.333 mls/ hr TPN CONT 08/05/19 22:00 08/06/19 21:59 DC 08/05/19 22:59 58.333 MLS/HR Succinylcholine Chloride (Anectine) 120 mg 1X ONCE 07/11/19 08:30 07/11/19 08:31 DC 07/11/19 08:34 120 MG Vecuronium [place] (Norcuron Bolus) 6 mg PRN Q6HRS PRN 08/25/19 19:15 08/25/19 19:35 DC Labs: Lab Laboratory Tests Test 09/12/19 17:46 09/12/19 23:55 09/13/19 05:45 09/13/19 06:00 Glucose (Fingerstick) 173 mg/dL (70-99) 166 mg/dL (70-99) 170 mg/dL (70-99) White Blood Count 11.4 x10^3/uL (4.0-11.0) Red Blood Count 2.80 x10^6/uL (3.50-5.40) Hemoglobin 8.0 g/dL (12.0-15.5) Hematocrit 24.4 % (36.0-47.0) Mean Corpuscular Volume 87 fL (79-100) Mean Corpuscular Hemoglobin 28 pg (25-35) Mean Corpuscular Hemoglobin Concent 33 g/dL (31-37) Red Cell Distribution Width 19.5 % (11.5-14.5) Platelet Count 325 x10^3/uL (140-400) Neutrophils (%) (Auto) 72 % (31-73) Lymphocytes (%) (Auto) 17 % (24-48) Monocytes (%) (Auto) 9 % (0-9) Eosinophils (%) (Auto) 2 % (0-3) Basophils (%) (Auto) 0 % (0-3) Neutrophils # (Auto) 8.2 x10^3/uL (1.8-7.7) Lymphocytes # (Auto) 2.0 x10^3/uL (1.0-4.8) Monocytes # (Auto) 1.0 x10^3/uL (0.0-1.1) Eosinophils # (Auto) 0.2 x10^3/uL (0.0-0.7) Basophils # (Auto) 0.0 x10^3/uL (0.0-0.2) Sodium Level 134 mmol/L (136-145) Potassium Level 4.6 mmol/L (3.5-5.1) Chloride Level 97 mmol/L (98-107) Carbon Dioxide Level 33 mmol/L (21-32) Anion Gap 4 (6-14) Blood Urea Nitrogen 28 mg/dL (7-20) Creatinine 0.9 mg/dL (0.6-1.0) Estimated GFR (Cockcroft-Gault) 66.5 Glucose Level 183 mg/dL (70-99) Calcium Level 10.0 mg/dL (8.5-10.1) Objective: Assessment: Fever intermittent could be from underlying pancreatitis, Acute pancreatitis with persistent necrosis CT a/p 07/27 Increased ascites. 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 Leucocytosis JUANA,Hyperkalemia, Metabolic acidosis off dialysis Acute hypoxic resp failure ,bilateral pleural effusion and atelectasis hypocalcemia Prediabetes HTN s/p trach Plan: Plan of Care cont merrem restarted September 11 cont Micafungin, 08/21 Off dapto/zyvox/merrem Maintain aspiration precaution Supportive care Critically ill YUNIOR JONES MD September 13, 2019 08:35
--- NOTE | 2019-09-13 08:54 | PDOC ---
PROGRESS NOTES Assessment Problems Medical Problems: (1) Acute pancreatitis Status: Acute (2) Cholelithiasis Status: Acute Respiratory failure. Single seizure on 06/23, no recurrence. Metabolic encephalopathy. Fevers. Metabolic acidosis. Diffuse pulmonary infiltrate. Pleural effusion. Pancreatitis, necrotizing. Gallstone. Leukocytosis. Lymphopenia. Electrolytes imbalances. Hyperglycemia. DM. HTN. HLD. Anemia. Abnormal CXR. Obesity. Ascites and pleural effusion Plan Keppra if she has further seizures. Treat medical diseases. Subjective No complaints Objective Vital Signs Date Time Temp Pulse Resp B/P (MAP) Pulse Ox O2 Delivery O2 Flow Rate FiO2 09/13/19 07:00 99 15 109/58 (75) 99 Tracheal Collar 8.0 09/13/19 04:00 98.2 98.2 Intake and Output 09/13/19 07:00 Intake Total 2046.66 ml Output Total 2485 ml Balance -438.34 ml Intake Oral 0 ml IV Total 2046.66 ml Output Urine Total 2225 ml Drainage Total 260 ml PHYSICAL EXAM Alert, follows commands. Tracheostomy shield PERRL. EOMI. CN: no focal findings. Muscle tone: normal. Muscle strength: 3-4/5 DTR: 1+ Plantar reflex: Silent Gait: not examined in bed. Sensory exam: normal Cerebellar: normal Review of Relevant I have reviewed the following items kolby (where applicable) has been applied. Labs Laboratory Tests Test 09/11/19 11:25 09/11/19 23:39 09/12/19 06:50 09/12/19 06:52 White Blood Count 16.0 x10^3/uL (4.0-11.0) Red Blood Count 2.94 x10^6/uL (3.50-5.40) Hemoglobin 8.5 g/dL (12.0-15.5) Hematocrit 25.5 % (36.0-47.0) Mean Corpuscular Volume 87 fL (79-100) Mean Corpuscular Hemoglobin 29 pg (25-35) Mean Corpuscular Hemoglobin Concent 34 g/dL (31-37) Red Cell Distribution Width 19.0 % (11.5-14.5) Platelet Count 317 x10^3/uL (140-400) Sodium Level 136 mmol/L (136-145) 135 mmol/L (136-145) Potassium Level 4.8 mmol/L (3.5-5.1) 5.0 mmol/L (3.5-5.1) Chloride Level 98 mmol/L (98-107) 97 mmol/L (98-107) Carbon Dioxide Level 34 mmol/L (21-32) 34 mmol/L (21-32) Anion Gap 4 (6-14) 4 (6-14) Blood Urea Nitrogen 23 mg/dL (7-20) 24 mg/dL (7-20) Creatinine 0.8 mg/dL (0.6-1.0) 0.8 mg/dL (0.6-1.0) Estimated GFR (Cockcroft-Gault) 76.2 76.2 BUN/Creatinine Ratio 29 (6-20) 30 (6-20) Glucose Level 131 mg/dL (70-99) 140 mg/dL (70-99) Calcium Level 10.1 mg/dL (8.5-10.1) 10.0 mg/dL (8.5-10.1) Total Bilirubin 0.7 mg/dL (0.2-1.0) 0.7 mg/dL (0.2-1.0) Aspartate Amino Transf (AST/SGOT) 34 U/L (15-37) 26 U/L (15-37) Alanine Aminotransferase (ALT/SGPT) 25 U/L (14-59) 25 U/L (14-59) Alkaline Phosphatase 131 U/L (46-116) 119 U/L (46-116) Total Protein 6.9 g/dL (6.4-8.2) 6.9 g/dL (6.4-8.2) Albumin 2.4 g/dL (3.4-5.0) 2.3 g/dL (3.4-5.0) Albumin/Globulin Ratio 0.5 (1.0-1.7) 0.5 (1.0-1.7) Glucose (Fingerstick) 161 mg/dL (70-99) 135 mg/dL (70-99) Phosphorus Level 5.2 mg/dL (2.6-4.7) Magnesium Level 2.3 mg/dL (1.8-2.4) Triglycerides Level 217 mg/dL (0-150) Test 09/12/19 17:46 09/12/19 23:55 09/13/19 05:45 09/13/19 06:00 Glucose (Fingerstick) 173 mg/dL (70-99) 166 mg/dL (70-99) 170 mg/dL (70-99) White Blood Count 11.4 x10^3/uL (4.0-11.0) Red Blood Count 2.80 x10^6/uL (3.50-5.40) Hemoglobin 8.0 g/dL (12.0-15.5) Hematocrit 24.4 % (36.0-47.0) Mean Corpuscular Volume 87 fL (79-100) Mean Corpuscular Hemoglobin 28 pg (25-35) Mean Corpuscular Hemoglobin Concent 33 g/dL (31-37) Red Cell Distribution Width 19.5 % (11.5-14.5) Platelet Count 325 x10^3/uL (140-400) Neutrophils (%) (Auto) 72 % (31-73) Lymphocytes (%) (Auto) 17 % (24-48) Monocytes (%) (Auto) 9 % (0-9) Eosinophils (%) (Auto) 2 % (0-3) Basophils (%) (Auto) 0 % (0-3) Neutrophils # (Auto) 8.2 x10^3/uL (1.8-7.7) Lymphocytes # (Auto) 2.0 x10^3/uL (1.0-4.8) Monocytes # (Auto) 1.0 x10^3/uL (0.0-1.1) Eosinophils # (Auto) 0.2 x10^3/uL (0.0-0.7) Basophils # (Auto) 0.0 x10^3/uL (0.0-0.2) Sodium Level 134 mmol/L (136-145) Potassium Level 4.6 mmol/L (3.5-5.1) Chloride Level 97 mmol/L (98-107) Carbon Dioxide Level 33 mmol/L (21-32) Anion Gap 4 (6-14) Blood Urea Nitrogen 28 mg/dL (7-20) Creatinine 0.9 mg/dL (0.6-1.0) Estimated GFR (Cockcroft-Gault) 66.5 Glucose Level 183 mg/dL (70-99) Calcium Level 10.0 mg/dL (8.5-10.1) Laboratory Tests Test 09/12/19 17:46 09/12/19 23:55 09/13/19 05:45 09/13/19 06:00 Glucose (Fingerstick) 173 mg/dL (70-99) 166 mg/dL (70-99) 170 mg/dL (70-99) White Blood Count 11.4 x10^3/uL (4.0-11.0) Red Blood Count 2.80 x10^6/uL (3.50-5.40) Hemoglobin 8.0 g/dL (12.0-15.5) Hematocrit 24.4 % (36.0-47.0) Mean Corpuscular Volume 87 fL (79-100) Mean Corpuscular Hemoglobin 28 pg (25-35) Mean Corpuscular Hemoglobin Concent 33 g/dL (31-37) Red Cell Distribution Width 19.5 % (11.5-14.5) Platelet Count 325 x10^3/uL (140-400) Neutrophils (%) (Auto) 72 % (31-73) Lymphocytes (%) (Auto) 17 % (24-48) Monocytes (%) (Auto) 9 % (0-9) Eosinophils (%) (Auto) 2 % (0-3) Basophils (%) (Auto) 0 % (0-3) Neutrophils # (Auto) 8.2 x10^3/uL (1.8-7.7) Lymphocytes # (Auto) 2.0 x10^3/uL (1.0-4.8) Monocytes # (Auto) 1.0 x10^3/uL (0.0-1.1) Eosinophils # (Auto) 0.2 x10^3/uL (0.0-0.7) Basophils # (Auto) 0.0 x10^3/uL (0.0-0.2) Sodium Level 134 mmol/L (136-145) Potassium Level 4.6 mmol/L (3.5-5.1) Chloride Level 97 mmol/L (98-107) Carbon Dioxide Level 33 mmol/L (21-32) Anion Gap 4 (6-14) Blood Urea Nitrogen 28 mg/dL (7-20) Creatinine 0.9 mg/dL (0.6-1.0) Estimated GFR (Cockcroft-Gault) 66.5 Glucose Level 183 mg/dL (70-99) Calcium Level 10.0 mg/dL (8.5-10.1) Microbiology 09/04/19 Blood Culture - Final, Complete NO GROWTH AFTER 5 DAYS 08/24/19 Fungal Culture - Final, Complete 08/24/19 Fungal Culture Result 1 - Final, Complete 08/18/19 Aerobic Culture - Final, Complete 08/18/19 Aerobic Culture Result 1 (ALEXANDRA) - Final, Complete 08/18/19 Gram Stain - Final, Complete 08/18/19 Gram Stain Result 1 (ALEXANDRA) - Final, Complete 08/18/19 Gram Stain Result 2 (ALEXANDRA) - Final, Complete 07/31/19 Urine Culture - Final, Complete 07/31/19 Urine Culture Result 1 (ALEXANDRA) - Final, Complete Medications Current Medications Sodium Chloride 1,000 ml @ 1,000 mls/hr Q1H IV Last administered on 07/04/19at 03:00; Start 07/04/19 at 03:00; Stop 07/04/19 at 03:59; Status DC Ondansetron HCl (Zofran) 4 mg 1X ONCE IVP Last administered on 07/04/19at 03:27; Start 07/04/19 at 03:00; Stop 07/04/19 at 03:01; Status DC Morphine Sulfate (Morphine Sulfate) 4 mg 1X ONCE IV ; Start 07/04/19 at 03:00; Stop 07/04/19 at 03:01; Status Cancel Ketorolac Tromethamine (Toradol 30mg Vial) 30 mg 1X ONCE IV Last administered on 07/04/19at 02:54; Start 07/04/19 at 03:00; Stop 07/04/19 at 03:01; Status DC Fentanyl Citrate (Fentanyl 2ml Vial) 25 mcg 1X ONCE IVP Last administered on 07/04/19at 03:23; Start 07/04/19 at 03:30; Stop 07/04/19 at 03:31; Status DC Fentanyl Citrate (Fentanyl 2ml Vial) 100 mcg STK-MED ONCE .ROUTE ; Start 07/04/19 at 03:18; Stop 07/04/19 at 03:18; Status DC Iohexol (Omnipaque 350 Mg/ml) 90 ml 1X ONCE IV Last administered on 07/04/19at 03:25; Start 07/04/19 at 03:30; Stop 07/04/19 at 03:31; Status DC Info (CONTRAST GIVEN -- Rx MONITORING) 1 each PRN DAILY PRN MC SEE COMMENTS; Start 07/04/19 at 03:30; Stop 07/06/19 at 03:29; Status DC Hydromorphone HCl (Dilaudid) 0.5 mg 1X ONCE IV Last administered on 07/04/19at 03:55; Start 07/04/19 at 04:30; Stop 07/04/19 at 04:32; Status DC Ondansetron HCl (Zofran) 4 mg PRN Q8HRS PRN IV NAUSEA/VOMITING 1ST CHOICE; Start 07/04/19 at 05:00; Stop 07/04/19 at 09:27; Status DC Morphine Sulfate (Morphine Sulfate) 2 mg PRN Q2HR PRN IV SEVERE PAIN 7-10 Last administered on 07/05/19at 12:26; Start 07/04/19 at 05:00; Stop 07/05/19 at 14:15; Status DC Sodium Chloride 1,000 ml @ 125 mls/hr Q8H IV Last administered on 07/04/19at 20:56; Start 07/04/19 at 05:00; Stop 07/05/19 at 04:59; Status DC Hydromorphone HCl (Dilaudid) 0.5 mg PRN Q3HRS PRN IV SEVERE PAIN 7-10 Last administered on 07/05/19at 10:06; Start 07/04/19 at 05:00; Stop 07/05/19 at 12:01; Status DC Piperacillin Sod/ Tazobactam Sod 4.5 gm/Sodium Chloride 100 ml @ 200 mls/hr 1X ONCE IV Last administered on 07/04/19at 05:44; Start 07/04/19 at 06:00; Stop 07/04/19 at 06:29; Status DC Ondansetron HCl (Zofran) 4 mg PRN Q4HRS PRN IV NAUSEA/VOMITING 1ST CHOICE Last administered on 09/12/19at 20:19; Start 07/04/19 at 09:30 Insulin Human Lispro (HumaLOG) 0-9 UNITS Q6HRS SQ Last administered on 09/13/19at 06:02; Start 07/04/19 at 09:30 Dextrose (Dextrose 50%-Water Syringe) 12.5 gm PRN Q15MIN PRN IV SEE COMMENTS; Start 07/04/19 at 09:30 Pantoprazole Sodium (PROTONIX VIAL for IV PUSH) 40 mg DAILYAC IVP Last administered on 09/13/19at 08:01; Start 07/04/19 at 11:30 Prochlorperazine Edisylate (Compazine) 10 mg PRN Q6HRS PRN IV NAUSEA/VOMITING, 2nd CHOICE Last administered on 09/12/19at 23:32; Start 07/04/19 at 17:45 Atenolol (Tenormin) 100 mg DAILY PO ; Start 07/05/19 at 09:00; Stop 07/04/19 at 20:08; Status DC Metoprolol Tartrate (Lopressor Vial) 2.5 mg Q6HRS IVP Last administered on 07/05/19at 05:51; Start 07/04/19 at 20:15; Stop 07/05/19 at 10:02; Status DC Metoprolol Tartrate (Lopressor Vial) 5 mg Q6HRS IVP Last administered on 07/14/19at 00:12; Start 07/05/19 at 10:15; Stop 07/16/19 at 08:48; Status DC Hydromorphone HCl (Dilaudid) 1 mg PRN Q3HRS PRN IV SEVERE PAIN 7-10 Last administered on 07/11/19at 05:13; Start 07/05/19 at 12:00; Stop 07/19/19 at 00:25; Status DC Lidocaine HCl (Buffered Lidocaine 1%) 3 ml STK-MED ONCE .ROUTE ; Start 07/05/19 at 12:55; Stop 07/05/19 at 12:56; Status DC Albumin Human 500 ml @ 125 mls/hr 1X ONCE IV Last administered on 07/05/19at 14:33; Start 07/05/19 at 14:30; Stop 07/05/19 at 18:32; Status DC Norepinephrine Bitartrate 8 mg/ Dextrose 258 ml @ 17.299 mls/ hr CONT PRN IV PER PROTOCOL Last administered on 08/02/19at 12:48; Start 07/05/19 at 15:30; Stop 08/05/19 at 09:19; Status DC Sodium Chloride 1,000 ml @ 125 mls/hr Q8H IV Last administered on 07/05/19at 21:04; Start 07/05/19 at 16:00; Stop 07/06/19 at 02:42; Status DC Albumin Human 500 ml @ 125 mls/hr PRN BID PRN IV After every 2L NSS & BP < 90mm Last administered on 07/20/19at 14:21; Start 07/05/19 at 16:00 Iohexol (Omnipaque 300 Mg/ml) 60 ml 1X ONCE IV Last administered on 07/05/19at 17:20; Start 07/05/19 at 17:00; Stop 07/05/19 at 17:01; Status DC Info (CONTRAST GIVEN -- Rx MONITORING) 1 each PRN DAILY PRN MC SEE COMMENTS; Start 07/05/19 at 17:00; Stop 07/07/19 at 16:59; Status DC Meropenem 1 gm/ Sodium Chloride 100 ml @ 200 mls/hr Q8HRS IV Last administered on 07/06/19at 05:45; Start 07/05/19 at 20:00; Stop 07/06/19 at 08:48; Status DC Furosemide (Lasix) 40 mg 1X ONCE IVP Last administered on 07/05/19at 22:12; Start 07/05/19 at 22:30; Stop 07/05/19 at 22:31; Status DC Calcium Chloride 1000 mg/Sodium Chloride 110 ml @ 220 mls/hr 1X ONCE IV Last administered on 07/05/19at 22:11; Start 07/05/19 at 22:30; Stop 07/05/19 at 22:59; Status DC Albuterol Sulfate (Ventolin Neb Soln) 2.5 mg 1X ONCE NEB Last administered on 07/06/19at 00:56; Start 07/05/19 at 22:30; Stop 07/05/19 at 22:31; Status DC Insulin Human Regular (HumuLIN R VIAL) 5 unit 1X ONCE IV Last administered on 07/05/19at 22:14; Start 07/05/19 at 22:30; Stop 07/05/19 at 22:31; Status DC Magnesium Sulfate 50 ml @ 25 mls/hr 1X ONCE IV Last administered on 07/06/19at 02:57; Start 07/06/19 at 03:00; Stop 07/06/19 at 04:59; Status DC Calcium Gluconate 1000 mg/Sodium Chloride 110 ml @ 220 mls/hr 1X ONCE IV Last administered on 07/06/19at 02:46; Start 07/06/19 at 03:00; Stop 07/06/19 at 03:29; Status DC Sodium Chloride 1,000 ml @ 200 mls/hr Q5H IV Last administered on 07/06/19at 02:46; Start 07/06/19 at 03:00; Stop 07/06/19 at 10:21; Status DC Calcium Gluconate 1000 mg/Sodium Chloride 110 ml @ 220 mls/hr 1X ONCE IV Last administered on 07/06/19at 03:21; Start 07/06/19 at 03:30; Stop 07/06/19 at 03:59; Status DC Sodium Bicarbonate 50 meq/Sodium Chloride 1,050 ml @ 75 mls/hr Q14H IV Last administered on 07/10/19at 21:10; Start 07/06/19 at 07:30; Stop 07/11/19 at 10:28; Status DC Calcium Gluconate 2000 mg/Sodium Chloride 120 ml @ 220 mls/hr 1X ONCE IV Last administered on 07/06/19at 09:05; Start 07/06/19 at 07:30; Stop 07/06/19 at 08:02; Status DC Lidocaine HCl (Xylocaine-Mpf 1% 2ml Vial) 2 ml STK-MED ONCE .ROUTE ; Start 07/06/19 at 08:47; Stop 07/06/19 at 08:47; Status DC Meropenem 500 mg/ Sodium Chloride 50 ml @ 100 mls/hr Q12HR IV Last administered on 07/11/19at 21:01; Start 07/06/19 at 18:00; Stop 07/12/19 at 07:58; Status DC Lidocaine HCl (Buffered Lidocaine 1%) 3 ml STK-MED ONCE .ROUTE ; Start 07/06/19 at 09:46; Stop 07/06/19 at 09:46; Status DC Lidocaine HCl (Buffered Lidocaine 1%) 6 ml 1X ONCE INJ Last administered on 07/06/19at 10:26; Start 07/06/19 at 10:15; Stop 07/06/19 at 10:16; Status DC Info (Tpn Per Pharmacy) 1 each PRN DAILY PRN MC SEE COMMENTS Last administered on 09/12/19at 09:33; Start 07/06/19 at 12:00 Sodium Chloride 1,000 ml @ 1,000 mls/hr Q1H PRN IV hypotension; Start 07/06/19 at 12:07; Stop 07/06/19 at 18:06; Status DC Diphenhydramine HCl (Benadryl) 25 mg 1X PRN PRN IV ITCHING; Start 07/06/19 at 12:15; Stop 07/07/19 at 12:14; Status DC Diphenhydramine HCl (Benadryl) 25 mg 1X PRN PRN IV ITCHING; Start 07/06/19 at 12:15; Stop 07/07/19 at 12:14; Status DC Sodium Chloride 1,000 ml @ 400 mls/hr Q2H30M PRN IV PATENCY; Start 07/06/19 at 12:07; Stop 07/07/19 at 00:06; Status DC Info (PHARMACY MONITORING -- do not chart) 1 each PRN DAILY PRN MC SEE COMMENTS; Start 07/06/19 at 12:15; Stop 07/08/19 at 08:13; Status DC Sodium Chloride 90 meq/Calcium Gluconate 10 meq/ Multivitamins 10 ml/Chromium/ Copper/Manganese/ Seleni/Zn 1 ml/ Total Parenteral Nutrition/Amino Acids/Dextrose/ Fat Emulsion Intravenous 55.005 ml @ 2.292 mls/hr TPN CONT IV ; Start 07/06/19 at 22:00; Stop 07/06/19 at 12:33; Status DC Info (Tpn Per Pharmacy) 1 each PRN DAILY PRN MC SEE COMMENTS; Start 07/06/19 at 12:30; Status UNV Sodium Chloride 90 meq/Calcium Gluconate 10 meq/ Multivitamins 10 ml/Chromium/ Copper/Manganese/ Seleni/Zn 0.5 ml/ Total Parenteral Nutrition/Amino Acids/Dextrose/ Fat Emulsion Intravenous 1,512 ml @ 63 mls/hr TPN CONT IV Last administered on 07/06/19at 22:06; Start 07/06/19 at 22:00; Stop 07/07/19 at 21:59; Status DC Calcium Carbonate/ Glycine (Tums) 500 mg PRN AFTMEALHC PRN PO INDIGESTION; Start 07/06/19 at 17:45; Stop 08/31/19 at 10:25; Status DC Calcium Gluconate (Calcium Gluconate) 2,000 mg 1X ONCE IVP Last administered on 07/07/19at 02:19; Start 07/07/19 at 02:15; Stop 07/07/19 at 02:16; Status DC Calcium Chloride 3000 mg/Sodium Chloride 1,030 ml @ 50 mls/hr [id number] IV Last administered on 07/09/19at 02:17; Start 07/07/19 at 08:00; Stop 07/09/19 at 15:23; Status DC Lorazepam (Ativan Inj) 1 mg PRN Q4HRS PRN IVP ANXIETY / AGITATION, 2nd choic Last administered on 08/05/19at 03:51; Start 07/07/19 at 09:00; Stop 08/05/19 at 09:19; Status DC Sodium Chloride 1,000 ml @ 1,000 mls/hr Q1H PRN IV hypotension; Start 07/07/19 at 08:56; Stop 07/07/19 at 14:55; Status DC Albumin Human 200 ml @ 200 mls/hr 1X PRN PRN IV Hypotension; Start 07/07/19 at 09:00; Stop 07/07/19 at 14:59; Status DC Diphenhydramine HCl (Benadryl) 25 mg 1X PRN PRN IV ITCHING; Start 07/07/19 at 09:00; Stop 07/08/19 at 08:59; Status DC Diphenhydramine HCl (Benadryl) 25 mg 1X PRN PRN IV ITCHING; Start 07/07/19 at 09:00; Stop 07/08/19 at 08:59; Status DC Sodium Chloride 1,000 ml @ 400 mls/hr Q2H30M PRN IV PATENCY; Start 07/07/19 at 08:56; Stop 07/07/19 at 20:55; Status DC Info (PHARMACY MONITORING -- do not chart) 1 each PRN DAILY PRN MC SEE COMMENTS; Start 07/07/19 at 09:00; Status UNV Info (PHARMACY MONITORING -- do not chart) 1 each PRN DAILY PRN MC SEE COMMENTS; Start 07/07/19 at 09:00; Stop 07/08/19 at 08:13; Status DC Digoxin (Lanoxin) 500 mcg 1X ONCE IV Last administered on 07/07/19at 10:04; Start 07/07/19 at 10:00; Stop 07/07/19 at 10:01; Status DC Digoxin (Lanoxin) 125 mcg 1X ONCE IV Last administered on 07/07/19at 17:10; Start 07/07/19 at 18:00; Stop 07/07/19 at 18:01; Status DC Magnesium Sulfate 100 ml @ 25 mls/hr 1X ONCE IV Last administered on 06/18 01/07at 12:48; Start 07/07/19 at 13:00; Stop 07/07/19 at 16:59; Status DC Sodium Chloride 90 meq/Magnesium Sulfate 10 meq/ Calcium Gluconate 20 meq/ Multivitamins 10 ml/Chromium/ Copper/Manganese/ Seleni/Zn 0.5 ml/ Total Parenteral Nutrition/Amino Acids/Dextrose/ Fat Emulsion Intravenous 1,512 ml @ 63 mls/hr TPN CONT IV Last administered on 07/07/19at 22:25; Start 07/07/19 at 22:00; Stop 07/08/19 at 21:59; Status DC Sodium Chloride 1,000 ml @ 1,000 mls/hr Q1H PRN IV hypotension; Start 07/08/19 at 08:05; Stop 07/08/19 at 14:04; Status DC Albumin Human 200 ml @ 200 mls/hr 1X ONCE IV Last administered on 07/08/19at 08:57; Start 07/08/19 at 08:15; Stop 07/08/19 at 09:14; Status DC Diphenhydramine HCl (Benadryl) 25 mg 1X PRN PRN IV ITCHING; Start 07/08/19 at 08:15; Stop 07/09/19 at 08:14; Status DC Diphenhydramine HCl (Benadryl) 25 mg 1X PRN PRN IV ITCHING; Start 07/08/19 at 08:15; Stop 07/09/19 at 08:14; Status DC Sodium Chloride 1,000 ml @ 400 mls/hr Q2H30M PRN IV PATENCY; Start 07/08/19 at 08:05; Stop 07/08/19 at 20:04; Status DC Info (PHARMACY MONITORING -- do not chart) 1 each PRN DAILY PRN MC SEE COMMENTS; Start 07/08/19 at 08:15; Stop 07/12/19 at 07:57; Status DC Sodium Chloride 90 meq/Potassium Chloride 15 meq/ Potassium Phosphate 10 mmol/ M agnesium Sulfate 10 meq/Calcium Gluconate 20 meq/ Multivitamins 10 ml/Chromium/ Copper/Manganese/ Seleni/Zn 0.5 ml/ Total Parenteral Nutrition/Amino Acids/Dextrose/ Fat Emulsion Intravenous 1,512 ml @ 63 mls/hr TPN CONT IV Last administered on 07/08/19at 21:01; Start 07/08/19 at 22:00; Stop 07/09/19 at 21:59; Status DC Potassium Chloride/Water 100 ml @ 100 mls/hr 1X ONCE IV Last administered on 07/08/19at 14:09; Start 07/08/19 at 14:00; Stop 07/08/19 at 14:59; Status DC Benzocaine (Hurricaine One) 1 spray 1X ONCE MM Last administered on 07/08/19at 16:38; Start 07/08/19 at 14:30; Stop 07/08/19 at 14:31; Status DC Lidocaine HCl (Glydo (Lidocaine) Jelly) 1 ramu 1X ONCE MM Last administered on 07/08/19at 16:38; Start 07/08/19 at 14:30; Stop 07/08/19 at 14:31; Status DC Linezolid/Dextrose 300 ml @ 300 mls/hr Q12HR IV Last administered on 07/14/19at 21:04; Start 07/08/19 at 20:00; Stop 07/15/19 at 07:50; Status DC Acetaminophen (Tylenol) 650 mg PRN Q6HRS PRN PO MILD PAIN / TEMP; Start 07/09/19 at 03:30; Stop 07/09/19 at 03:36; Status DC Acetaminophen (Tylenol) 650 mg PRN Q6HRS PRN PEG MILD PAIN / TEMP Last administered on 08/04/19at 19:56; Start 07/09/19 at 03:36; Stop 08/31/19 at 10:25; Status DC Sodium Chloride 1,000 ml @ 1,000 mls/hr Q1H PRN IV hypotension; Start 07/09/19 at 07:50; Stop 07/09/19 at 13:49; Status DC Albumin Human 200 ml @ 200 mls/hr 1X PRN PRN IV Hypotension; Start 07/09/19 at 08:00; Stop 07/09/19 at 13:59; Status DC Sodium Chloride (Normal Saline Flush) 10 ml 1X PRN PRN IV AP catheter pack; Start 07/09/19 at 08:00; Stop 07/10/19 at 07:59; Status DC Sodium Chloride (Normal Saline Flush) 10 ml 1X PRN PRN IV [employer] catheter pack; Start 07/09/19 at 08:00; Stop 07/10/19 at 07:59; Status DC Sodium Chloride 1,000 ml @ 400 mls/hr Q2H30M PRN IV PATENCY; Start 07/09/19 at 07:50; Stop 07/09/19 at 19:49; Status DC Info (PHARMACY MONITORING -- do not chart) 1 each PRN DAILY PRN MC SEE COMMENTS; Start 07/09/19 at 08:00; Status UNV Info (PHARMACY MONITORING -- do not chart) 1 each PRN DAILY PRN MC SEE COMMENTS; Start 07/09/19 at 08:00; Stop 07/11/19 at 08:25; Status DC Sodium Chloride 90 meq/Potassium Chloride 15 meq/ Potassium Phosphate 10 mmol/ Magnesium Sulfate 10 meq/Calcium Gluconate 20 meq/ Multivitamins 10 ml/Chromium/ Copper/Manganese/ Seleni/Zn 0.5 ml/ Total Parenteral Nutrition/Amino Acids/Dextrose/ Fat Emulsion Intravenous 1,512 ml @ 63 mls/hr TPN CONT IV Last administered on 07/09/19at 20:57; Start 07/09/19 at 22:00; Stop 07/10/19 at 21:59; Status DC Sodium Chloride 90 meq/Potassium Chloride 15 meq/ Potassium Phosphate 15 mmol/ Magnesium Sulfate 10 meq/Calcium Gluconate 20 meq/ Multivitamins 10 ml/Chromium/ Copper/Manganese/ Seleni/Zn 0.5 ml/ Total Parenteral Nutrition/Amino Acids/Dextrose/ Fat Emulsion Intravenous 1,512 ml @ 63 mls/hr TPN CONT IV ; Start 07/10/19 at 22:00; Stop 07/10/19 at 14:16; Status DC Sodium Chloride 90 meq/Potassium Chloride 15 meq/ Potassium Phosphate 15 mmol/ Magnesium Sulfate 10 meq/Calcium Gluconate 20 meq/ Multivitamins 10 ml/Chromium/ Copper/Manganese/ Seleni/Zn 0.5 ml/ Total Parenteral Nutrition/Amino Acids/Dextrose/ Fat Emulsion Intravenous 1,200 ml @ 50 mls/hr TPN CONT IV ; Start 07/10/19 at 22:00; Stop 07/10/19 at 14:17; Status DC Sodium Chloride 90 meq/Potassium Chloride 15 meq/ Potassium Phosphate 10 mmol/ Magnesium Sulfate 10 meq/Calcium Gluconate 20 meq/ Multivitamins 10 ml/Chromium/ Copper/Manganese/ Seleni/Zn 0.5 ml/ Total Parenteral Nutrition/Amino Acids/Dextrose/ Fat Emulsion Intravenous 1,200 ml @ 50 mls/hr TPN CONT IV Last administered on 07/10/19at 23:29; Start 07/10/19 at 22:00; Stop 07/11/19 at 21:59; Status DC Sodium Chloride 1,000 ml @ 1,000 mls/hr Q1H PRN IV hypotension; Start 07/11/19 at 07:28; Stop 07/11/19 at 13:27; Status DC Albumin Human 200 ml @ 200 mls/hr 1X ONCE IV Last administered on 07/11/19at 08:51; Start 07/11/19 at 07:30; Stop 07/11/19 at 08:29; Status DC Diphenhydramine HCl (Benadryl) 25 mg 1X PRN PRN IV ITCHING; Start 07/11/19 at 07:30; Stop 07/12/19 at 07:29; Status DC Diphenhydramine HCl (Benadryl) 25 mg 1X PRN PRN IV ITCHING; Start 07/11/19 at 07:30; Stop 07/12/19 at 07:29; Status DC Sodium Chloride 1,000 ml @ 400 mls/hr Q2H30M PRN IV PATENCY; Start 07/11/19 at 07:28; Stop 07/11/19 at 19:27; Status DC Info (PHARMACY MONITORING -- do not chart) 1 each PRN DAILY PRN MC SEE COMMENTS; Start 07/11/19 at 07:30; Stop 07/22/19 at 13:01; Status DC Metronidazole 100 ml @ 100 mls/hr Q6HRS IV Last administered on 07/27/19at 06:26; Start 07/11/19 at 08:30; Stop 07/27/19 at 09:58; Status DC Micafungin Sodium 100 mg/Dextrose 100 ml @ 100 mls/hr Q24H IV Last administered on 08/18/19at 08:18; Start 07/11/19 at 09:00; Stop 08/18/19 at 20: 58; Status DC Propofol 0 ml @ As Directed STK-MED ONCE IV ; Start 07/11/19 at 07:53; Stop 07/11/19 at 07:53; Status DC Etomidate (Amidate) 20 mg STK-MED ONCE IV ; Start 07/11/19 at 07:53; Stop 07/11/19 at 07:54; Status DC Midazolam HCl (Versed) 5 mg STK-MED ONCE .ROUTE ; Start 07/11/19 at 07:57; Stop 07/11/19 at 07:57; Status DC Fentanyl Citrate 30 ml @ 0 mls/hr CONT PRN IV SEE PROTOCOL Last administered on 08/05/19at 06:12; Start 07/11/19 at 08:15; Stop 08/05/19 at 09:19; Status DC Artificial Tears (Artificial Tears) 1 drop PRN Q1HR PRN OU DRY EYE, 1st choice; Start 07/11/19 at 08:15; Stop 08/17/19 at 05:31; Status DC Midazolam HCl 50 mg/Sodium Chloride 50 ml @ 0 mls/hr CONT PRN IV SEE PROTOCOL Last administered on 07/14/19at 22:39; Start 07/11/19 at 08:15; Stop 07/16/19 at 15:59; Status DC Etomidate (Amidate) 8 mg 1X ONCE IV Last administered on 07/11/19at 08:33; Start 07/11/19 at 08:30; Stop 07/11/19 at 08:31; Status DC Succinylcholine Chloride (Anectine) 120 mg 1X ONCE IV Last administered on 07/11/19at 08:34; Start 07/11/19 at 08:30; Stop 07/11/19 at 08:31; Status DC Midazolam HCl (Versed) 5 mg 1X ONCE IV ; Start 07/11/19 at 08:30; Stop 07/11/19 at 08:31; Status DC Potassium Chloride 15 meq/ Bicarbonate Dialysis Soln w/ out KCl 5,007.5 ml @ 1,000 mls/ hr Q5H1M IV Last administered on 07/12/19at 11:11; Start 07/11/19 at 12:00; Stop 07/12/19 at 11:15; Status DC Potassium Chloride 15 meq/ Bicarbonate Dialysis Soln w/ out KCl 5,007.5 ml @ 1,000 mls/ hr Q5H1M IV Last administered on 07/12/19at 11:12; Start 07/11/19 at 12:00; Stop 07/12/19 at 11:17; Status DC Potassium Chloride 15 meq/ Bicarbonate Dialysis Soln w/ out KCl 5,007.5 ml @ 1,000 mls/ hr Q5H1M IV Last administered on 07/12/19at 11:11; Start 07/11/19 at 12:00; Stop 07/12/19 at 11:19; Status DC Sodium Chloride 90 meq/Potassium Chloride 15 meq/ Potassium Phosphate 10 mmol/ Magnesium Sulfate 10 meq/Calcium Gluconate 20 meq/ Multivitamins 10 ml/Chromium/ Copper/Manganese/ Seleni/Zn 0.5 ml/ Total Parenteral Nutrition/Amino Acids/Dextrose/ Fat Emulsion Intravenous 1,400 ml @ 58.333 mls/ hr TPN CONT IV Last administered on 07/11/19at 21:42; Start 07/11/19 at 22:00; Stop 07/12/19 at 21:59; Status DC Heparin Sodium (Porcine) (Heparin Sodium) 5,000 unit Q8HRS SQ Last administered on 07/16/19at 05:55; Start 07/11/19 at 15:00; Stop 07/16/19 at 13:28; Status DC Meropenem 500 mg/ Sodium Chloride 50 ml @ 100 mls/hr Q6HRS IV Last administered on 07/13/19at 06:00; Start 07/12/19 at 09:00; Stop 07/13/19 at 07:29; Status DC Potassium Phosphate 20 mmol/ Sodium Chloride 106.6667 ml @ 51.667 m... 1X ONCE IV Last administered on 07/12/19at 11:22; Start 07/12/19 at 10:15; Stop 07/12/19 at 12:18; Status DC Acetaminophen (Tylenol Supp) 650 mg PRN Q6HRS PRN MI MILD PAIN / TEMP > 100.3'F Last administered on 08/23/19at 09:12; Start 07/12/19 at 10:30 Potassium Chloride/Water 100 ml @ 100 mls/hr Q1H IV Last administered on 07/12/19at 12:12; Start 07/12/19 at 11:00; Stop 07/12/19 at 12:59; Status DC Potassium Chloride 20 meq/ Bicarbonate Dialysis Soln w/ out KCl 5,010 ml @ 1,000 mls/hr Q5H1M IV Last administered on 07/13/19at 08:48; Start 07/12/19 at 12:00; Stop 07/13/19 at 13:03; Status DC Potassium Chloride 20 meq/ Bicarbonate Dialysis Soln w/ out KCl 5,010 ml @ 1,000 mls/hr Q5H1M IV Last administered on 07/17/19at 14:52; Start 07/12/19 at 11:30; Stop 07/17/19 at 19:59; Status DC Potassium Chloride 20 meq/ Bicarbonate Dialysis Soln w/ out KCl 5,010 ml @ 1,000 mls/hr Q5H1M IV Last administered on 07/17/19at 14:53; Start 07/12/19 at 11:30; Stop 07/17/19 at 19:59; Status DC Sodium Chloride 90 meq/Potassium Chloride 15 meq/ Potassium Phosphate 15 mmol/ Magnesium Sulfate 10 meq/Calcium Gluconate 15 meq/ Multivitamins 10 ml/Chromium/ Copper/Manganese/ Seleni/Zn 0.5 ml/ Total Parenteral Nutrition/Amino Acids/De xtrose/ Fat Emulsion Intravenous 1,400 ml @ 58.333 mls/ hr TPN CONT IV Last administered on 07/12/19at 22:17; Start 07/12/19 at 22:00; Stop 07/13/19 at 21:59; Status DC Cefepime HCl (Maxipime) 2 gm Q12HR IVP Last administered on 07/26/19at 20:56; Start 07/13/19 at 09:00; Stop 07/27/19 at 09:58; Status DC Daptomycin 500 mg/ Sodium Chloride 50 ml @ 100 mls/hr Q48H IV Last adminis tered on 07/29/19at 09:57; Start 07/13/19 at 08:30; Stop 07/29/19 at 10:07; Status DC Lidocaine HCl (Buffered Lidocaine 1%) 3 ml 1X ONCE INJ Last administered on 07/13/19at 10:27; Start 07/13/19 at 10:30; Stop 07/13/19 at 10:31; Status DC Potassium Phosphate 20 mmol/ Sodium Chloride 106.6667 ml @ 51.667 m... 1X ONCE IV Last administered on 07/13/19at 12:51; Start 07/13/19 at 13:00; Stop 07/13/19 at 15:03; Status DC Sodium Chloride 90 meq/Potassium Chloride 15 meq/ Potassium Phosphate 18 mmol/ Magnesium Sulfate 8 meq/Calcium Gluconate 15 meq/ Multivitamins 10 ml/Chromium/ Copper/Manganese/ Seleni/Zn 0.5 ml/ Total Parenteral Nutrition/Amino Acids/Dextrose/ Fat Emulsion Intravenous 1,400 ml @ 58.333 mls/ hr TPN CONT IV Last administered on 07/13/19at 22:16; Start 07/13/19 at 22:00; Stop 07/14/19 at 21:59; Status DC Potassium Chloride 20 meq/ Bicarbonate Dialysis Soln w/ out KCl 5,010 ml @ 1,000 mls/hr Q5H1M IV Last administered on 07/17/19at 14:54; Start 07/13/19 at 16:00; Stop 07/17/19 at 19:59; Status DC Multi-Ingred Cream/Lotion/Oil/ Oint (Artificial Tears Eye Ointment) 1 ramu PRN Q1HR PRN OU DRY EYE, 2nd choice Last administered on 08/01/19at 08:19; Start 07/13/19 at 17:30 Sodium Chloride 90 meq/Potassium Chloride 15 meq/ Potassium Phosphate 18 mmol/ Magnesium Sulfate 8 meq/Calcium Gluconate 15 meq/ Multivitamins 10 ml/Chromium/ Copper/Manganese/ Seleni/Zn 0.5 ml/ Total Parenteral Nutrition/Amino Acids/Dextrose/ Fat Emulsion Intravenous 1,400 ml @ 58.333 mls/ hr TPN CONT IV Last administered on 07/14/19at 22:00; Start 07/14/19 at 22:00; Stop 07/15/19 at 21:59; Status DC Albumin Human 500 ml @ 125 mls/hr 1X ONCE IV ; Start 07/14/19 at 14:15; Stop 07/14/19 at 18:14; Status DC Sodium Chloride 90 meq/Potassium Chloride 15 meq/ Potassium Phosphate 18 mmol/ Magnesium Sulfate 8 meq/Calcium Gluconate 15 meq/ Multivitamins 10 ml/Chromium/ Copper/Manganese/ Seleni/Zn 0.5 ml/ Insulin Human Regular 10 unit/ Total Parenteral Nutrition/Amino Acids/Dextrose/ Fat Emulsion Intravenous 1,400 ml @ 58.333 mls/ hr TPN CONT IV Last administered on 07/15/19at 21:43; Start 07/15/19 at 22:00; Stop 07/16/19 at 21:59; Status DC Lidocaine HCl (Buffered Lidocaine 1%) 3 ml STK-MED ONCE .ROUTE ; Start 07/13/19 at 10:00; Stop 07/15/19 at 13:57; Status DC Midazolam HCl 100 mg/Sodium Chloride 100 ml @ 7 mls/hr CONT PRN IV SEE PROTOCOL Last administered on 07/27/19at 15:35; Start 07/16/19 at 16:00 Sodium Chloride 90 meq/Potassium Chloride 15 meq/ Potassium Phosphate 18 mmol/ Magnesium Sulfate 8 meq/Calcium Gluconate 15 meq/ Multivitamins 10 ml/Chromium/ Copper/Manganese/ Seleni/Zn 0.5 ml/ Insulin Human Regular 15 unit/ Total Parenteral Nutrition/Amino Acids/Dextrose/ Fat Emulsion Intravenous 1,400 ml @ 58.333 mls/ hr TPN CONT IV Last administered on 07/16/19at 20:34; Start at 22:00; Stop 07/17/19 at 21:59; Status DC Info (Icu Electrolyte Protocol) 1 ea CONT PRN PRN MC PER PROTOCOL; Start at 13:15 Sodium Chloride 90 meq/Potassium Chloride 15 meq/ Potassium Phosphate 18 mmol/ Magnesium Sulfate 8 meq/Calcium Gluconate 15 meq/ Multivitamins 10 ml/Chromium/ Copper/Manganese/ Seleni/Zn 0.5 ml/ Insulin Human Regular 15 unit/ Total Parenteral Nutrition/Amino Acids/Dextrose/ Fat Emulsion Intravenous 1,400 ml @ 58.333 mls/ hr TPN CONT IV Last administered on 07/17/19at 22:05; Start 07/17/19 at 22:00; Stop 07/18/19 at 21:59; Status DC Potassium Chloride 15 meq/ Bicarbonate Dialysis Soln w/ out KCl 5,007.5 ml @ 1,000 mls/ hr Q5H1M IV Last administered on 07/20/19at 18:14; Start 07/17/19 at 20:00; Stop 07/21/19 at 13:08; Status DC Potassium Chloride 15 meq/ Bicarbonate Dialysis Soln w/ out KCl 5,007.5 ml @ 1,000 mls/ hr Q5H1M IV Last administered on 07/20/19at 18:14; Start 07/17/19 at 20:00; Stop 07/21/19 at 13:08; Status DC Potassium Chloride 15 meq/ Bicarbonate Dialysis Soln w/ out KCl 5,007.5 ml @ 1,000 mls/ hr Q5H1M IV Last administered on 07/20/19at 18:14; Start 07/17/19 at 20:00; Stop 07/21/19 at 13:08; Status DC Iohexol (Omnipaque 240 Mg/ml) 30 ml 1X ONCE PO Last administered on 07/18/19at 11:30; Start 07/18/19 at 11:30; Stop 07/18/19 at 11:33; Status DC Info (CONTRAST GIVEN -- Rx MONITORING) 1 each PRN DAILY PRN MC SEE COMMENTS; Start 07/18/19 at 11:45; Stop 07/20/19 at 11:44; Status DC Sodium Chloride 90 meq/Potassium Chloride 15 meq/ Potassium Phosphate 18 mmol/ Magnesium Sulfate 8 meq/Calcium Gluconate 15 meq/ Multivitamins 10 ml/Chromium/ Copper/Manganese/ Seleni/Zn 0.5 ml/ Insulin Human Regular 15 unit/ Total Parenteral Nutrition/Amino Acids/Dextrose/ Fat Emulsion Intravenous 1,400 ml @ 58.333 mls/ hr TPN CONT IV Last administered on 07/18/19at 21:47; Start 07/18/19 at 22:00; Stop 07/19/19 at 21:59; Status DC Sodium Chloride 90 meq/Potassium Chloride 15 meq/ Potassium Phosphate 18 mmol/ Magnesium Sulfate 8 meq/Calcium Gluconate 15 meq/ Multivitamins 10 ml/Chromium/ Copper/Manganese/ Seleni/Zn 0.5 ml/ Insulin Human Regular 20 unit/ Total Parenteral Nutrition/Amino Acids/Dextrose/ Fat Emulsion Intravenous 1,400 ml @ 58.333 mls/ hr TPN CONT IV Last administered on 07/19/19at 21:36; Start 07/19/19 at 22:00; Stop 07/20/19 at 21:59; Status DC Alteplase, Recombinant (Cathflo For Central Catheter Clearance) 1 mg 1X ONCE INT CAT Last administered on 07/19/19at 20:03; Start 07/19/19 at 19:30; Stop 07/19/19 at 19:46; Status DC Alteplase, Recombinant (Cathflo For Central Catheter Clearance) 1 mg 1X ONCE INT CAT Last administered on 07/19/19at 22:05; Start 07/19/19 at 22:00; Stop 07/19/19 at 22:01; Status DC Sodium Chloride 90 meq/Potassium Chloride 15 meq/ Potassium Phosphate 18 mmol/ Magnesium Sulfate 8 meq/Calcium Gluconate 15 meq/ Multivitamins 10 ml/Chromium/ Copper/Manganese/ Seleni/Zn 0.5 ml/ Insulin Human Regular 20 unit/ Total Parenteral Nutrition/Amino Acids/Dextrose/ Fat Emulsion Intravenous 1,400 ml @ 58.333 mls/ hr TPN CONT IV Last administered on 07/20/19at 21:30; Start 07/20/19 at 22:00; Stop 07/21/19 at 21:59; Status DC Dexmedetomidine HCl 400 mcg/ Sodium Chloride 100 ml @ 0 mls/hr CONT PRN IV ANXIETY / AGITATION Last administered on 09/13/19at 08:07; Start 07/21/19 at 08:15 Sodium Chloride 500 ml @ 500 mls/hr 1X PRN PRN IV ELEVATED BP, SEE COMMENTS; Start 07/21/19 at 08:15 Atropine Sulfate (ATROPINE 0.5mg SYRINGE) 0.5 mg PRN Q5MIN PRN IV SEE COMMENTS; Start 07/21/19 at 08:15 Furosemide (Lasix) 20 mg 1X ONCE IVP Last administered on 07/21/19at 08:19; Start 07/21/19 at 08:15; Stop 07/21/19 at 08:16; Status DC Lidocaine HCl (Buffered Lidocaine 1%) 3 ml STK-MED ONCE .ROUTE ; Start 07/21/19 at 08:39; Stop 07/21/19 at 08:39; Status DC Lidocaine HCl (Buffered Lidocaine 1%) 6 ml 1X ONCE INJ Last administered on 07/21/19at 09:05; Start 07/21/19 at 09:00; Stop 07/21/19 at 09:06; Status DC Sodium Chloride 90 meq/Potassium Chloride 15 meq/ Potassium Phosphate 18 mmol/ Magnesium Sulfate 8 meq/Calcium Gluconate 15 meq/ Multivitamins 10 ml/Chromium/ Copper/Manganese/ Seleni/Zn 0.5 ml/ Insulin Human Regular 20 unit/ Total Parenteral Nutrition/Amino Acids/Dextrose/ Fat Emulsion Intravenous 1,400 ml @ 58.333 mls/ hr TPN CONT IV Last administered on 07/21/19at 22:45; Start 07/21/19 at 22:00; Stop 07/22/19 at 21:59; Status DC Sodium Chloride 1,000 ml @ 1,000 mls/hr Q1H PRN IV hypotension; Start 07/22/19 at 07:30; Stop 07/22/19 at 13:29; Status DC Albumin Human 200 ml @ 200 mls/hr 1X PRN PRN IV Hypotension Last administered on 07/22/19at 09:36; Start 07/22/19 at 07:30; Stop 07/22/19 at 13:29; Status DC Sodium Chloride (Normal Saline Flush) 10 ml 1X PRN PRN IV AP catheter pack; Start 07/22/19 at 07:30; Stop 07/22/19 at 21:29; Status DC Sodium Chloride (Normal Saline Flush) 10 ml 1X PRN PRN IV FRANCHISE SPECIALIST catheter pack; Start 07/22/19 at 07:30; Stop 07/23/19 at 07:29; Status DC Sodium Chloride 1,000 ml @ 400 mls/hr Q2H30M PRN IV PATENCY; Start 07/22/19 at 07:30; Stop 07/22/19 at 19:29; Status DC Info (PHARMACY MONITORING -- do not chart) 1 each PRN DAILY PRN MC SEE COMMENTS; Start 07/22/19 at 07:30; Stop 07/22/19 at 13:02; Status DC Info (PHARMACY MONITORING -- do not chart) 1 each PRN DAILY PRN MC SEE COMMENTS; Start 07/22/19 at 07:30; Stop 07/24/19 at 12:45; Status DC Sodium Chloride 90 meq/Potassium Chloride 15 meq/ Potassium Phosphate 10 mmol/ Magnesium Sulfate 8 meq/Calcium Gluconate 15 meq/ Multivitamins 10 ml/Chromium/ Copper/Manganese/ Seleni/Zn 0.5 ml/ Insulin Human Regular 25 unit/ Total Parenteral Nutrition/Amino Acids/Dextrose/ Fat Emulsion Intravenous 1,400 ml @ 58.333 mls/ hr TPN CONT IV Last administered on 07/22/19at 22:19; Start 07/22/19 at 22:00; Stop 07/23/19 at 21:59; Status DC Heparin Sodium (Porcine) (Heparin Sodium) 5,000 unit Q12HR SQ Last administered on 08/14/19at 08:59; Start 07/22/19 at 21:00; Stop 08/14/19 at 10:05; Status DC Ondansetron HCl (Zofran) 4 mg PRN Q6HRS PRN IV NAUSEA/VOMITING; Start 07/25/19 at 07:00; Stop 07/26/19 at 06:59; Status DC Fentanyl Citrate (Fentanyl 2ml Vial) 25 mcg PRN Q5MIN PRN IV MILD PAIN 1-3; Start 07/25/19 at 07:00; Stop 07/26/19 at 06:59; Status DC Fentanyl Citrate (Fentanyl 2ml Vial) 50 mcg PRN Q5MIN PRN IV MODERATE TO SEVERE PAIN; Start 07/25/19 at 07:00; Stop 07/26/19 at 06:59; Status DC Ringer's Solution 1,000 ml @ 30 mls/hr Q24H IV ; Start 07/25/19 at 07:00; Stop 07/25/19 at 18:59; Status DC Lidocaine HCl (Xylocaine-Mpf 1% 2ml Vial) 2 ml PRN 1X PRN ID PRIOR TO IV START; Start 07/25/19 at 07:00; Stop 07/26/19 at 06:59; Status DC Prochlorperazine Edisylate (Compazine) 5 mg PACU PRN PRN IV NAUSEA, MRX1; Start 07/25/19 at 07:00; Stop 07/26/19 at 06:59; Status DC Sodium Chloride 1,000 ml @ 1,000 mls/hr Q1H PRN IV hypotension; Start 07/23/19 at 09:10; Stop 07/23/19 at 15:09; Status DC Albumin Human 200 ml @ 200 mls/hr 1X PRN PRN IV Hypotension Last administered on 07/23/19at 10:10; Start 07/23/19 at 09:15; Stop 07/23/19 at 15:14; Status DC Sodium Chloride 1,000 ml @ 400 mls/hr Q2H30M PRN IV PATENCY; Start 07/23/19 at 09:10; Stop 07/23/19 at 21:09; Status DC Info (PHARMACY MONITORING -- do not chart) 1 each PRN DAILY PRN MC SEE COMMENTS; Start 07/23/19 at 09:15; Stop 07/24/19 at 12:45; Status DC Info (PHARMACY MONITORING -- do not chart) 1 each PRN DAILY PRN MC SEE COMMENT S; Start 07/23/19 at 09:15; Stop 07/24/19 at 12:45; Status DC Sodium Chloride 90 meq/Potassium Chloride 15 meq/ Potassium Phosphate 10 mmol/ Magnesium Sulfate 8 meq/Calcium Gluconate 15 meq/ Multivitamins 10 ml/Chromium/ Copper/Manganese/ Seleni/Zn 0.5 ml/ Insulin Human Regular 25 unit/ Total Parenteral Nutrition/Amino Acids/Dextrose/ Fat Emulsion Intravenous 1,400 ml @ 58.333 mls/ hr TPN CONT IV Last administered on 07/23/19at 22:10; Start 07/23/19 at 22:00; Stop 07/24/19 at 21:59; Status DC Magnesium Sulfate 50 ml @ 25 mls/hr PRN DAILY PRN IV for Mag < 1.7 on am labs Last administered on 08/08/19at 17:27; Start 07/24/19 at 09:15 Sodium Chloride 90 meq/Potassium Chloride 15 meq/ Potassium Phosphate 10 mmol/ Magnesium Sulfate 8 meq/Calcium Gluconate 15 meq/ Multivitamins 10 ml/Chromium/ Copper/Manganese/ Seleni/Zn 0.5 ml/ Insulin Human Regular 25 unit/ Total Parenteral Nutrition/Amino Acids/Dextrose/ Fat Emulsion Intravenous 1,400 ml @ 58.333 mls/ hr TPN CONT IV Last administered on 07/24/19at 21:20; Start 07/24/19 at 22:00; Stop 07/25/19 at 21:59; Status DC Sodium Chloride 1,000 ml @ 1,000 mls/hr Q1H PRN IV hypotension; Start 07/24/19 at 12:23; Stop 07/24/19 at 18:22; Status DC Albumin Human 200 ml @ 200 mls/hr 1X ONCE IV Last administered on 07/24/19at 13:34; Start 07/24/19 at 12:30; Stop 07/24/19 at 13:29; Status DC Diphenhydramine HCl (Benadryl) 25 mg 1X PRN PRN IV ITCHING; Start 07/24/19 at 12:30; Stop 07/25/19 at 12:29; Status DC Diphenhydramine HCl (Benadryl) 25 mg 1X PRN PRN IV ITCHING; Start 07/24/19 at 12:30; Stop 07/25/19 at 12:29; Status DC Info (PHARMACY MONITORING -- do not chart) 1 each PRN DAILY PRN MC SEE COMMENTS; Start 07/24/19 at 12:30; Status Cancel Bupivacaine HCl/ Epinephrine Bitart (Sensorcain-Epi 0.5%-1:[id number] Mpf) 30 ml STK-MED ONCE .ROUTE Last administered on 07/25/19at 11:44; Start 07/25/19 at 11:00; Stop 07/25/19 at 11:01; Status DC Cellulose (Surgicel Fibrillar 1x2) 1 each STK-MED ONCE .ROUTE ; Start 07/25/19 at 11:00; Stop 07/25/19 at 11:01; Status DC Sodium Chloride 90 meq/Potassium Chloride 15 meq/ Potassium Phosphate 10 mmol/ Magnesium Sulfate 12 meq/Calcium Gluconate 15 meq/ Multivitamins 10 ml/Chromium/ Copper/Manganese/ Seleni/Zn 0.5 ml/ Insulin Human Regular 25 unit/ Total Parenteral Nutrition/Amino Acids/Dextrose/ Fat Emulsion Intravenous 1,400 ml @ 58.333 mls/ hr TPN CONT IV Last administered on 07/25/19at 22:24; Start 07/25/19 at 22:00; Stop 07/26/19 at 21:59; Status DC Propofol 20 ml @ As Directed STK-MED ONCE IV ; Start 07/25/19 at 11:07; Stop 07/25/19 at 11:07; Status DC Cellulose (Surgicel Hemostat 4x8) 1 each STK-MED ONCE .ROUTE Last administered on 07/25/19at 11:44; Start 07/25/19 at 11:55; Stop 07/25/19 at 11:56; Status DC Sevoflurane (Ultane) 60 ml STK-MED ONCE IH ; Start 07/25/19 at 12:46; Stop 07/25/19 at 12:46; Status DC Sodium Chloride 1,000 ml @ 1,000 mls/hr Q1H PRN IV hypotension; Start 07/25/19 at 13:51; Stop 07/25/19 at 19:50; Status DC Albumin Human 200 ml @ 200 mls/hr 1X PRN PRN IV Hypotension Last administered on 07/25/19at 14:51; Start 07/25/19 at 14:00; Stop 07/25/19 at 19:59; Status DC Diphenhydramine HCl (Benadryl) 25 mg 1X PRN PRN IV ITCHING; Start 07/25/19 at 14:00; Stop 07/26/19 at 13:59; Status DC Diphenhydramine HCl (Benadryl) 25 mg 1X PRN PRN IV ITCHING; Start 07/25/19 at 14:00; Stop 07/26/19 at 13:59; Status DC Sodium Chloride 1,000 ml @ 400 mls/hr Q2H30M PRN IV PATENCY; Start 07/25/19 at 13:51; Stop 07/26/19 at 01:50; Status DC Info (PHARMACY MONITORING -- do not chart) 1 each PRN DAILY PRN MC SEE COMMENTS; Start 07/25/19 at 14:00; Stop 07/28/19 at 08:16; Status DC Heparin Sodium (Porcine) (Hep Lock Adult) 500 unit STK-MED ONCE IVP ; Start 07/26/19 at 09:29; Stop 07/26/19 at 09:30; Status DC Sodium Chloride 1,000 ml @ 1,000 mls/hr Q1H PRN IV hypotension; Start 07/26/19 at 10:43; Stop 07/26/19 at 16:42; Status DC Sodium Chloride 1,000 ml @ 400 mls/hr Q2H30M PRN IV PATENCY; Start 07/26/19 at 10:43; Stop 07/26/19 at 22:42; Status DC Info (PHARMACY MONITORING -- do not chart) 1 each PRN DAILY PRN MC SEE COMMENTS; Start 07/26/19 at 10:45; Status UNV Info (PHARMACY MONITORING -- do not chart) 1 each PRN DAILY PRN MC SEE COMMENTS; Start 07/26/19 at 10:45; Status UNV Sodium Chloride 90 meq/Potassium Chloride 15 meq/ Magnesium Sulfate 12 meq/Calcium Gluconate 15 meq/ Multivitamins 10 ml/Chromium/ Copper/Manganese/ Seleni/Zn 0.5 ml/ Insulin Human Regular 25 unit/ Total Parenteral Nutrition/Amino Acids/Dextrose/ Fat Emulsion Intravenous 1,400 ml @ 58.333 mls/ hr TPN CONT IV Last administered on 07/26/19at 22:13; Start 07/26/19 at 22:00; Stop 07/27/19 at 21:59; Status DC Sodium Chloride 1,000 ml @ 1,000 mls/hr Q1H PRN IV hypotension; Start 07/27/19 at 07:50; Stop 07/27/19 at 13:49; Status DC Albumin Human 200 ml @ 200 mls/hr 1X ONCE IV ; Start 07/27/19 at 08:00; Stop 07/27/19 at 08:53; Status DC Diphenhydramine HCl (Benadryl) 25 mg 1X PRN PRN IV ITCHING; Start 07/27/19 at 08:00; Stop 07/28/19 at 07:59; Status DC Diphenhydramine HCl (Benadryl) 25 mg 1X PRN PRN IV ITCHING; Start 07/27/19 at 08:00; Stop 07/28/19 at 07:59; Status DC Info (PHARMACY MONITORING -- do not chart) 1 each PRN DAILY PRN MC SEE COMMENTS; Start 07/27/19 at 08:00; Stop 07/28/19 at 08:16; Status DC Albumin Human 50 ml @ 50 mls/hr 1X ONCE IV ; Start 07/27/19 at 08:53; Stop 07/27/19 at 08:56; Status DC Albumin Human 200 ml @ 50 mls/hr PRN 1X PRN IV HYPOTENSION Last administered on 08/02/19at 11:54; Start 07/27/19 at 09:00; Stop 09/08/19 at 11:14; Status DC Meropenem 500 mg/ Sodium Chloride 50 ml @ 100 mls/hr Q12H IV Last administered on 08/16/19at 10:45; Start 07/27/19 at 10:00; Stop 08/16/19 at 12:37; Status DC Sodium Chloride 90 meq/Magnesium Sulfate 12 meq/ Calcium Gluconate 15 meq/ Multivitamins 10 ml/Chromium/ Copper/Manganese/ Seleni/Zn 0.5 ml/ Insulin Human Regular 25 unit/ Total Parenteral Nutrition/Amino Acids/Dextrose/ Fat Emulsion Intravenous 1,400 ml @ 58.333 mls/ hr TPN CONT IV Last administered on 07/27/19at 21:41; Start 07/27/19 at 22:00; Stop 07/28/19 at 21:59; Status DC Sodium Chloride 1,000 ml @ 1,000 mls/hr Q1H PRN IV hypotension; Start 07/28/19 at 07:58; Stop 07/28/19 at 13:57; Status DC Albumin Human 200 ml @ 200 mls/hr 1X PRN PRN IV Hypotension Last administered on 07/28/19at 09:30; Start 07/28/19 at 08:00; Stop 07/28/19 at 13:59; Status DC Sodium Chloride 1,000 ml @ 400 mls/hr Q2H30M PRN IV PATENCY; Start 07/28/19 at 07:58; Stop 07/28/19 at 19:57; Status DC Info (PHARMACY MONITORING -- do not chart) 1 each PRN DAILY PRN MC SEE COMMENTS; Start 07/28/19 at 08:00; Status Cancel Info (PHARMACY MONITORING -- do not chart) 1 each PRN DAILY PRN MC SEE COMMENTS; Start 07/28/19 at 08:15; Status UNV Sodium Chloride 90 meq/Potassium Phosphate 5 mmol/ Magnesium Sulfate 12 meq/Calcium Gluconate 15 meq/ Multivitamins 10 ml/Chromium/ Copper/Manganese/ Seleni/Zn 0.5 ml/ Insulin Human Regular 30 unit/ Total Parenteral Nutrition/Amino Acids/Dextrose/ Fat Emulsion Intravenous 1,400 ml @ 58.333 mls/ hr TPN CONT IV Last administered on 07/28/19at 22:08; Start 07/28/19 at 22:00; Stop 07/29/19 at 21:59; Status DC Linezolid/Dextrose 300 ml @ 300 mls/hr Q12HR IV Last administered on 08/08/19at 20:40; Start 07/29/19 at 11:00; Stop 08/09/19 at 08:10; Status DC Sodium Chloride 90 meq/Potassium Phosphate 15 mmol/ Magnesium Sulfate 12 meq/Ca lcium Gluconate 15 meq/ Multivitamins 10 ml/Chromium/ Copper/Manganese/ Seleni/Zn 0.5 ml/ Insulin Human Regular 30 unit/ Total Parenteral Nutrition/Amino Acids/Dextrose/ Fat Emulsion Intravenous 1,400 ml @ 58.333 mls/ hr TPN CONT IV Last administered on 07/29/19at 21:49; Start 07/29/19 at 22:00; Stop 07/30/19 at 21:59; Status DC Sodium Chloride 90 meq/Potassium Phosphate 15 mmol/ Magnesium Sulfate 12 meq/Calcium Gluconate 15 meq/ Multivitamins 10 ml/Chromium/ Copper/Manganese/ Seleni/Zn 0.5 ml/ Insulin Human Regular 40 unit/ Total Parenteral Nutrition/Amino Acids/Dextrose/ Fat Emulsion Intravenous 1,400 ml @ 58.333 mls/ hr TPN CONT IV Last administered on 07/30/19at 21:21; Start 07/30/19 at 22:00; Stop 07/31/19 at 21:59; Status DC Sodium Chloride 1,000 ml @ 1,000 mls/hr Q1H PRN IV hypotension; Start 07/30/19 at 13:26; Stop 07/30/19 at 19:25; Status DC Albumin Human 200 ml @ 200 mls/hr 1X PRN PRN IV Hypotension Last administered on 07/30/19at 15:00; Start 07/30/19 at 13:30; Stop 07/30/19 at 19:29; Status DC Sodium Chloride (Normal Saline Flush) 10 ml 1X PRN PRN IV AP catheter pack; Start 07/30/19 at 13:30; Stop 07/31/19 at 13:29; Status DC Sodium Chloride (Normal Saline Flush) 10 ml 1X PRN PRN IV FRANCHISE SPECIALIST catheter pack; Start 07/30/19 at 13:30; Stop 07/31/19 at 13:29; Status DC Sodium Chloride 1,000 ml @ 400 mls/hr Q2H30M PRN IV PATENCY; Start 07/30/19 at 13:26; Stop 07/31/19 at 01:25; Status DC Info (PHARMACY MONITORING -- do not chart) 1 each PRN DAILY PRN MC SEE COMMENTS; Start 07/30/19 at 13:30; Stop 07/30/19 at 13:33; Status DC Info (PHARMACY MONITORING -- do not chart) 1 each PRN DAILY PRN MC SEE COMMENTS; Start 07/30/19 at 13:30; Stop 07/30/19 at 13:34; Status DC Sodium Chloride 90 meq/Potassium Phosphate 19 mmol/ Magnesium Sulfate 12 meq/Zachariah cium Gluconate 15 meq/ Multivitamins 10 ml/Chromium/ Copper/Manganese/ Seleni/Zn 0.5 ml/ Insulin Human Regular 40 unit/ Total Parenteral Nutrition/Amino Acids/Dextrose/ Fat Emulsion Intravenous 1,400 ml @ 58.333 mls/ hr TPN CONT IV Last administered on 07/31/19at 21:54; Start 07/31/19 at 22:00; Stop 08/01/19 at 21:59; Status DC Sodium Chloride 1,000 ml @ 1,000 mls/hr Q1H PRN IV hypotension; Start 08/01/19 at 09:35; Stop 08/01/19 at 15:34; Status DC Albumin Human 200 ml @ 200 mls/hr 1X PRN PRN IV Hypotension; Start 08/01/19 at 09:45; Stop 08/01/19 at 15:44; Status DC Diphenhydramine HCl (Benadryl) 25 mg 1X PRN PRN IV ITCHING; Start 08/01/19 at 09:45; Stop 08/02/19 at 09:44; Status DC Diphenhydramine HCl (Benadryl) 25 mg 1X PRN PRN IV ITCHING; Start 08/01/19 at 09:45; Stop 08/02/19 at 09:44; Status DC Sodium Chloride 1,000 ml @ 400 mls/hr Q2H30M PRN IV PATENCY; Start 08/01/19 at 09:35; Stop 08/01/19 at 21:34; Status DC Info (PHARMACY MONITORING -- do not chart) 1 each PRN DAILY PRN MC SEE COMMENT S; Start 08/01/19 at 09:45; Status Cancel Sodium Chloride 100 meq/Potassium Phosphate 19 mmol/ Magnesium Sulfate 12 meq/Calcium Gluconate 15 meq/ Multivitamins 10 ml/Chromium/ Copper/Manganese/ Seleni/Zn 0.5 ml/ Insulin Human Regular 40 unit/ Potassium Chloride 20 meq/ Total Parenteral Nutrition/Amino Acids/Dextrose/ Fat Emulsion Intravenous 1,400 ml @ 58.333 mls/ hr TPN CONT IV Last administered on 08/01/19at 22:02; Start 08/01/19 at 22:00; Stop 08/02/19 at 21:59; Status DC Furosemide (Lasix) 40 mg 1X ONCE IVP Last administered on 08/01/19at 14:39; Start 08/01/19 at 14:30; Stop 08/01/19 at 14:31; Status DC Metronidazole 100 ml @ 100 mls/hr Q8HRS IV Last administered on 08/09/19at 06:04; Start 08/02/19 at 10:00; Stop 08/09/19 at 08:10; Status DC Sodium Chloride 1,000 ml @ 1,000 mls/hr Q1H PRN IV hypotension; Start 08/02/19 at 08:00; Stop 08/02/19 at 13:59; Status DC Albumin Human 200 ml @ 200 mls/hr 1X PRN PRN IV Hypotension; Start 08/02/19 at 08:00; Stop 08/02/19 at 13:59; Status DC Sodium Chloride 1,000 ml @ 400 mls/hr Q2H30M PRN IV PATENCY; Start 08/02/19 at 08:00; Stop 08/02/19 at 19:59; Status DC Info (PHARMACY MONITORING -- do not chart) 1 each PRN DAILY PRN MC SEE COMMENTS; Start 08/02/19 at 11:30; Status UNV Info (PHARMACY MONITORING -- do not chart) 1 each PRN DAILY PRN MC SEE COMMENTS; Start 08/02/19 at 11:30; Stop 08/04/19 at 12:13; Status DC Sodium Chloride 100 meq/Potassium Phosphate 19 mmol/ Magnesium Sulfate 12 meq/Calcium Gluconate 15 meq/ Multivitamins 10 ml/Chromium/ Copper/Manganese/ Seleni/Zn 0.5 ml/ Insulin Human Regular 40 unit/ Potassium Chloride 20 meq/ Total Parenteral Nutrition/Amino Acids/Dextrose/ Fat Emulsion Intravenous 1,400 ml @ 58.333 mls/ hr TPN CONT IV Last administered on 08/02/19at 21:52; Start 08/02/19 at 22:00; Stop 08/03/19 at 21:59; Status DC Sodium Chloride (Normal Saline Flush) 10 ml QSHIFT PRN IV AFTER MEDS AND BLOOD DRAWS; Start 08/02/19 at 15:00; Stop 08/30/19 at 11:27; Status DC Sodium Chloride (Normal Saline Flush) 10 ml PRN Q5MIN PRN IV AFTER MEDS AND BLOOD DRAWS; Start 08/02/19 at 15:00 Sodium Chloride (Normal Saline Flush) 20 ml PRN Q5MIN PRN IV AFTER MEDS AND BL OOD DRAWS; Start 08/02/19 at 15:00 Sodium Chloride 100 meq/Potassium Phosphate 19 mmol/ Magnesium Sulfate 12 meq/Calcium Gluconate 15 meq/ Multivitamins 10 ml/Chromium/ Copper/Manganese/ Seleni/Zn 0.5 ml/ Insulin Human Regular 40 unit/ Potassium Chloride 20 meq/ Total Parenteral Nutrition/Amino Acids/Dextrose/ Fat Emulsion Intravenous 1,400 ml @ 58.333 mls/ hr TPN CONT IV Last administered on 08/03/19at 21:20; Start 08/03/19 at 22:00; Stop 08/04/19 at 21:59; Status DC Lidocaine HCl (Buffered Lidocaine 1%) 3 ml STK-MED ONCE .ROUTE ; Start 08/03/19 at 13:16; Stop 08/03/19 at 13:16; Status DC Lidocaine HCl (Buffered Lidocaine 1%) 6 ml 1X ONCE INJ Last administered on 08/03/19at 13:45; Start 08/03/19 at 13:30; Stop 08/03/19 at 13:31; Status DC Albumin Human 100 ml @ 100 mls/hr 1X ONCE IV Last administered on 08/03/19at 15:41; Start 08/03/19 at 15:00; Stop 08/03/19 at 15:59; Status DC Albumin Human 50 ml @ 50 mls/hr 1X ONCE IV Last administered on 08/03/19at 15:00; Start 08/03/19 at 15:00; Stop 08/03/19 at 15:59; Status DC Info (PHARMACY MONITORING -- do not chart) 1 each PRN DAILY PRN MC SEE COMMENTS; Start 08/04/19 at 11:30; Status Cancel Info (PHARMACY MONITORING -- do not chart) 1 each PRN DAILY PRN MC SEE COMMENTS; Start 08/04/19 at 11:30; Status UNV Sodium Chloride 100 meq/Potassium Phosphate 10 mmol/ Magnesium Sulfate 12 meq/Calcium Gluconate 15 meq/ Multivitamins 10 ml/Chromium/ Copper/Manganese/ Seleni/Zn 0.5 ml/ Insulin Human Regular 35 unit/ Potassium Chloride 20 meq/ Total Parenteral Nutrition/Amino Acids/Dextrose/ Fat Emulsion Intravenous 1,400 ml @ 58.333 mls/ hr TPN CONT IV Last administered on 08/04/19at 22:10; Start 08/04/19 at 22:00; Stop 08/05/19 at 21:59; Status DC Sodium Chloride 100 meq/Potassium Phosphate 5 mmol/ Magnesium Sulfate 12 meq/Calcium Gluconate 15 meq/ Multivitamins 10 ml/Chromium/ Copper/Manganese/ Seleni/Zn 0.5 ml/ Insulin Human Regular 35 unit/ Potassium Chloride 20 meq/ Total Parenteral Nutrition/Amino Acids/Dextrose/ Fat Emulsion Intravenous 1,400 ml @ 58.333 mls/ hr TPN CONT IV Last administered on 08/05/19at 22:59; Start 08/05/19 at 22:00; Stop 08/06/19 at 21:59; Status DC Sodium Chloride 1,000 ml @ 1,000 mls/hr Q1H PRN IV hypotension; Start 08/06/19 at 08:27; Stop 08/06/19 at 14:26; Status DC Albumin Human 200 ml @ 200 mls/hr 1X PRN PRN IV Hypotension Last administered on 08/06/19at 09:18; Start 08/06/19 at 08:30; Stop 08/06/19 at 14:29; Status DC Sodium Chloride 1,000 ml @ 400 mls/hr Q2H30M PRN IV PATENCY; Start 08/06/19 at 08:27; Stop 08/06/19 at 20:26; Status DC Info (PHARMACY MONITORING -- do not chart) 1 each PRN DAILY PRN MC SEE COMMENTS; Start 08/06/19 at 08:30; Status Cancel Info (PHARMACY MONITORING -- do not chart) 1 each PRN DAILY PRN MC SEE COMMENTS; Start 08/06/19 at 08:30; Stop 08/14/19 at 13:10; Status DC Sodium Chloride 100 meq/Potassium Chloride 40 meq/ Magnesium Sulfate 15 meq/Calcium Gluconate 15 meq/ Multivitamins 10 ml/Chromium/ Copper/Manganese/ Seleni/Zn 0.5 ml/ Insulin Human Regular 35 unit/ Total Parenteral Nutrition/Amino Acids/Dextrose/ Fat Emulsion Intravenous 1,400 ml @ 58.333 mls/ hr TPN CONT IV Last administered on 08/06/19at 22:00; Start 08/06/19 at 22:00; Stop 08/07/19 at 21:59; Status DC Potassium Chloride/Water 100 ml @ 100 mls/hr 1X ONCE IV Last administered on 08/06/19at 17:28; Start 08/06/19 at 14:45; Stop 08/06/19 at 15:44; Status DC Sodium Chloride 100 meq/Potassium Chloride 40 meq/ Magnesium Sulfate 15 meq/Calcium Gluconate 15 meq/ Multivitamins 10 ml/Chromium/ Copper/Manganese/ Seleni/Zn 0.5 ml/ Insulin Human Regular 35 unit/ Total Parenteral Nutrition/Amino Acids/Dextrose/ Fat Emulsion Intravenous 1,400 ml @ 58.333 mls/ hr TPN CONT IV Last administered on 08/07/19at 22:46; Start 08/07/19 at 22:00; Stop 08/08/19 at 21:59; Status DC Sodium Chloride 100 meq/Potassium Chloride 40 meq/ Magnesium Sulfate 20 meq/Calcium Gluconate 15 meq/ Multivitamins 10 ml/Chromium/ Copper/Manganese/ Seleni/Zn 0.5 ml/ Insulin Human Regular 35 unit/ Total Parenteral Nutrition/Amino Acids/Dextrose/ Fat Emulsion Intravenous 1,400 ml @ 58.333 mls/ hr TPN CONT IV Last administered on 08/08/19at 22:31; Start 08/08/19 at 22:00; Stop 08/09/19 at 21:59; Status DC Fentanyl Citrate (Fentanyl 2ml Vial) 50 mcg PRN Q2HR PRN IVP PAIN Last administered on 08/15/19at 13:32; Start 08/08/19 at 21:00; Stop 08/16/19 at 12:53; Status DC Fentanyl Citrate (Fentanyl 2ml Vial) 25 mcg PRN Q2HR PRN IVP PAIN; Start 08/08/19 at 21:00; Stop 08/16/19 at 12:54; Status DC Enoxaparin Sodium (Lovenox 100mg Syringe) 100 mg Q12HR SQ ; Start 08/09/19 at 21:00; Status UNV Amino Acids/ Glycerin/ Electrolytes 1,000 ml @ 75 mls/hr [id number] IV ; Start 08/08/19 at 21:15; Status UNV Sodium Chloride 1,000 ml @ 1,000 mls/hr Q1H PRN IV hypotension; Start 08/09/19 at 07:56; Stop 08/09/19 at 13:55; Status DC Albumin Human 200 ml @ 200 mls/hr 1X PRN PRN IV Hypotension Last administered on 08/09/19at 08:40; Start 08/09/19 at 08:00; Stop 08/09/19 at 13:59; Status DC Sodium Chloride 1,000 ml @ 400 mls/hr Q2H30M PRN IV PATENCY; Start 08/09/19 at 07:56; Stop 08/09/19 at 19:55; Status DC Info (PHARMACY MONITORING -- do not chart) 1 each PRN DAILY PRN MC SEE COMMENTS; Start 08/09/19 at 08:00; Status UNV Info (PHARMACY MONITORING -- do not chart) 1 each PRN DAILY PRN MC SEE COMMENTS; Start 08/09/19 at 08:00; Status UNV Daptomycin 430 mg/ Sodium Chloride 50 ml @ 100 mls/hr Q24H IV Last administered on 08/09/19at 12:35; Start 08/09/19 at 09:00; Stop 08/09/19 at 12:49; Status DC Sodium Chloride 100 meq/Potassium Chloride 40 meq/ Magnesium Sulfate 20 meq/Calcium Gluconate 15 meq/ Multivitamins 10 ml/Chromium/ Copper/Manganese/ Seleni/Zn 0.5 ml/ Insulin Human Regular 35 unit/ Total Parenteral Nutritio n/Amino Acids/Dextrose/ Fat Emulsion Intravenous 1,400 ml @ 58.333 mls/ hr TPN CONT IV Last administered on 08/09/19at 21:26; Start 08/09/19 at 22:00; Stop 08/10/19 at 21:59; Status DC Daptomycin 430 mg/ Sodium Chloride 50 ml @ 100 mls/hr Q48H IV ; Start 08/11/19 at 09:00; Stop 08/10/19 at 11:55; Status DC Sodium Chloride 100 meq/Potassium Chloride 40 meq/ Magnesium Sulfate 20 meq/Calcium Gluconate 15 meq/ Multivitamins 10 ml/Chromium/ Copper/Manganese/ Seleni/Zn 0.5 ml/ Insulin Human Regular 35 unit/ Total Parenteral Nutrition/Amino Acids/Dextrose/ Fat Emulsion Intravenous 1,400 ml @ 58.333 mls/ hr TPN CONT IV Last administered on 08/10/19at 22:27; Start 08/10/19 at 22:00; Stop 08/11/19 at 21:59; Status DC Daptomycin 430 mg/ Sodium Chloride 50 ml @ 100 mls/hr Q24H IV Last administered on 08/12/19at 15:07; Start 08/10/19 at 13:00; Stop 08/13/19 at 13:15; Status DC Sodium Chloride 100 meq/Potassium Chloride 40 meq/ Magnesium Sulfate 20 meq/Calcium Gluconate 10 meq/ Multivitamins 10 ml/Chromium/ Copper/Manganese/ Seleni/Zn 0.5 ml/ Insulin Human Regular 35 unit/ Total Parenteral Nutrition/Amino Acids/Dextrose/ Fat Emulsion Intravenous 1,400 ml @ 58.333 mls/ hr TPN CONT IV Last administered on 08/12/19at 00:06; Start 08/11/19 at 22:00; Stop 08/12/19 at 21:59; Status DC Alteplase, Recombinant (Cathflo For Central Catheter Clearance) 1 mg 1X ONCE INT CAT Last administered on 08/12/19at 11:44; Start 08/12/19 at 10:45; Stop 08/12/19 at 10:46; Status DC Ondansetron HCl (Zofran) 4 mg PRN Q6HRS PRN IV NAUSEA/VOMITING; Start 08/15/19 at 07:00; Stop 08/16/19 at 06:59; Status DC Fentanyl Citrate (Fentanyl 2ml Vial) 25 mcg PRN Q5MIN PRN IV MILD PAIN 1-3; Start 08/15/19 at 07:00; Stop 08/16/19 at 06:59; Status DC Fentanyl Citrate (Fentanyl 2ml Vial) 50 mcg PRN Q5MIN PRN IV MODERATE TO SEVERE PAIN Last administered on 08/15/19at 10:17; Start 08/15/19 at 07:00; Stop 08/16/19 at 06:59; Status DC Ringer's Solution 1,000 ml @ 30 mls/hr Q24H IV ; Start 08/15/19 at 07:00; Stop 08/15/19 at 18:59; Status DC Lidocaine HCl (Xylocaine-Mpf 1% 2ml Vial) 2 ml PRN 1X PRN ID PRIOR TO IV START; Start 08/15/19 at 07:00; Stop 08/16/19 at 06:59; Status DC Prochlorperazine Edisylate (Compazine) 5 mg PACU PRN PRN IV NAUSEA, MRX1; Start 08/15/19 at 07:00; Stop 08/16/19 at 06:59; Status DC Sodium Acetate 50 meq/Potassium Acetate 55 meq/ Magnesium Sulfate 20 meq/Calcium Gluconate 10 meq/ Multivitamins 10 ml/Chromium/ Copper/Manganese/ Seleni/Zn 0.5 ml/ Insulin Human Regular 35 unit/ Total Parenteral Nutrition/Amino Acids/Dextrose/ Fat Emulsion Intravenous 1,400 ml @ 58.333 mls/ hr TPN CONT IV ; Start 08/12/19 at 22:00; Stop 08/12/19 at 14:15; Status DC Sodium Acetate 50 meq/Potassium Acetate 55 meq/ Magnesium Sulfate 20 meq/Calcium Gluconate 10 meq/ Multivitamins 10 ml/Chromium/ Copper/Manganese/ Seleni/Zn 0.5 ml/ Insulin Human Regular 35 unit/ Total Parenteral Nutrition/Amino Acids/Dextrose/ Fat Emulsion Intravenous 1,800 ml @ 75 mls/hr TPN CONT IV Last administered on 08/12/19at 22:38; Start 08/12/19 at 22:00; Stop 08/13/19 at 21:59; Status DC Sodium Chloride 1,000 ml @ 1,000 mls/hr Q1H PRN IV hypotension; Start 08/12/19 at 15:31; Stop 08/12/19 at 21:30; Status DC Diphenhydramine HCl (Benadryl) 25 mg 1X PRN PRN IV ITCHING; Start 08/12/19 at 15:45; Stop 08/13/19 at 15:44; Status DC Diphenhydramine HCl (Benadryl) 25 mg 1X PRN PRN IV ITCHING; Start 08/12/19 at 15:45; Stop 08/13/19 at 15:44; Status DC Sodium Chloride 1,000 ml @ 400 mls/hr Q2H30M PRN IV PATENCY; Start 08/12/19 at 15:31; Stop 08/13/19 at 03:30; Status DC Info (PHARMACY MONITORING -- do not chart) 1 each PRN DAILY PRN MC SEE COMMENTS; Start 08/12/19 at 15:45 Sodium Acetate 50 meq/Potassium Acetate 55 meq/ Magnesium Sulfate 20 meq/Calcium Gluconate 10 meq/ Multivitamins 10 ml/Chromium/ Copper/Manganese/ Seleni/Zn 0.5 ml/ Insulin Human Regular 35 unit/ Total Parenteral Nutrition/Amino Acids/Dextrose/ Fat Emulsion Intravenous 1,800 ml @ 75 mls/hr TPN CONT IV Last administered on 08/13/19at 22:03; Start 08/13/19 at 22:00; Stop 08/14/19 at 21:59; Status DC Daptomycin 430 mg/ Sodium Chloride 50 ml @ 100 mls/hr Q24H IV Last administered on 08/18/19at 13:00; Start 08/13/19 at 13:00; Stop 08/18/19 at 20:58; Status DC Heparin Sodium (Porcine) 1000 unit/Sodium Chloride 1,001 ml @ 1,001 mls/hr 1X ONCE IRR ; Start 08/15/19 at 06:00; Stop 08/15/19 at 06:59; Status DC Potassium Acetate 55 meq/Magnesium Sulfate 20 meq/ Calcium Gluconate 10 meq/ Multivitamins 10 ml/Chromium/ Copper/Manganese/ Seleni/Zn 0.5 ml/ Insulin Human Regular 35 unit/ Total Parenteral Nutrition/Amino Acids/Dextrose/ Fat Emulsion Intravenous 1,920 ml @ 80 mls/hr TPN CONT IV Last administered on 08/14/19at 22:10; Start 08/14/19 at 22:00; Stop 08/15/19 at 21:59; Status DC Dexamethasone Sodium Phosphate (Decadron) 4 mg STK-MED ONCE .ROUTE ; Start at 10:56; Stop 08/15/19 at 10:57; Status DC Ondansetron HCl (Zofran) 4 mg STK-MED ONCE .ROUTE ; Start 08/15/19 at 10:56; Stop 08/15/19 at 10:57; Status DC Rocuronium Dunlow (Zemuron) 50 mg STK-MED ONCE .ROUTE ; Start 08/15/19 at 10:56; Stop 08/15/19 at 10:57; Status DC Fentanyl Citrate (Fentanyl 2ml Vial) 100 mcg STK-MED ONCE .ROUTE ; Start 08/15/19 at 10:56; Stop 08/15/19 at 10:57; Status DC Bupivacaine HCl/ Epinephrine Bitart (Sensorcain-Epi 0.5%-1:[id number] Mpf) 30 ml STK-MED ONCE .ROUTE Last administered on 08/15/19at 12:01; Start 08/15/19 at 10:58; Stop 08/15/19 at 10:58; Status DC Cellulose (Surgicel Hemostat 2x14) 1 each STK-MED ONCE .ROUTE ; Start 08/15/19 at 10:58; Stop 08/15/19 at 10:59; Status DC Iohexol (Omnipaque 300 Mg/ml) 50 ml STK-MED ONCE .ROUTE ; Start 08/15/19 at 10:58; Stop 08/15/19 at 10:59; Status DC Cellulose (Surgicel Hemostat 4x8) 1 each STK-MED ONCE .ROUTE ; Start 08/15/19 at 10:58; Stop 08/15/19 at 10:59; Status DC Bisacodyl (Dulcolax Supp) 10 mg STK-MED ONCE .ROUTE ; Start 08/15/19 at 10:59; Stop 08/15/19 at 10:59; Status DC Heparin Sodium (Porcine) 1000 unit/Sodium Chloride 1,001 ml @ 1,001 mls/hr 1X ONCE IRR ; Start 08/15/19 at 12:00; Stop 08/15/19 at 12:59; Status DC Propofol 20 ml @ As Directed STK-MED ONCE IV ; Start 08/15/19 at 11:05; Stop 08/15/19 at 11:05; Status DC Sevoflurane (Ultane) 90 ml STK-MED ONCE IH ; Start 08/15/19 at 11:05; Stop 08/15/19 at 11:05; Status DC Sevoflurane (Ultane) 60 ml STK-MED ONCE IH ; Start 08/15/19 at 12:26; Stop 08/15/19 at 12:27; Status DC Propofol 20 ml @ As Directed STK-MED ONCE IV ; Start 08/15/19 at 12:26; Stop 08/15/19 at 12:27; Status DC Phenylephrine HCl (PHENYLEPHRINE in 0.9% NACL PF) 1 mg STK-MED ONCE IV ; Start 08/15/19 at 12:34; Stop 08/15/19 at 12:34; Status DC Heparin Sodium (Porcine) (Heparin Sodium) 5,000 unit Q12HR SQ Last administered on 08/24/19at 20:57; Start 08/15/19 at 21:00; Stop 08/25/19 at 09:59; Status DC Sodium Chloride (Normal Saline Flush) 3 ml QSHIFT PRN IV AFTER MEDS AND BLOOD DRAWS; Start 08/15/19 at 13:45 Naloxone HCl (Narcan) 0.4 mg PRN Q2MIN PRN IV SEE INSTRUCTIONS; Start 08/15/19 at 13:45 Sodium Chloride 1,000 ml @ 25 mls/hr Q24H IV Last administered on 09/06/19at 13:37; Start 08/15/19 at 13:37 Naloxone HCl (Narcan) 0.4 mg PRN Q2MIN PRN IV SEE INSTRUCTIONS; Start 08/15/19 at 14:30; Status UNV Sodium Chloride 1,000 ml @ 25 mls/hr Q24H IV ; Start 08/15/19 at 14:30; Status UNV Hydromorphone HCl 30 ml @ 0 mls/hr CONT PRN PRN IV PER PROTOCOL Last administered on 08/20/19at 16:08; Start 08/15/19 at 14:30; Stop 08/22/19 at 08:55; Status DC Potassium Acetate 55 meq/Magnesium Sulfate 20 meq/ Calcium Gluconate 10 meq/ Multivitamins 10 ml/Chromium/ Copper/Manganese/ Seleni/Zn 0.5 ml/ Insulin Human Regular 35 unit/ Total Parenteral Nutrition/Amino Acids/Dextrose/ Fat Emulsion Intravenous 1,920 ml @ 80 mls/hr TPN CONT IV Last administered on 08/15/19at 22:01; Start 08/15/19 at 22:00; Stop 08/16/19 at 21:59; Status DC Bumetanide (Bumex) 2 mg [id number] IV Last administered on 08/19/19at 13:50; Start 08/16/19 at 14:00; Stop 08/20/19 at 14:10; Status DC Meropenem 1 gm/ Sodium Chloride 100 ml @ 200 mls/hr Q8HRS IV Last administered on 09/09/19at 05:53; Start 08/16/19 at 14:00; Stop 09/09/19 at 09:31; Status DC Potassium Acetate 55 meq/Magnesium Sulfate 20 meq/ Calcium Gluconate 10 meq/ Multivitamins 10 ml/Chromium/ Copper/Manganese/ Seleni/Zn 0.5 ml/ Insulin Human Regular 35 unit/ Total Parenteral Nutrition/Amino Acids/Dextrose/ Fat Emulsion Intravenous 1,920 ml @ 80 mls/hr TPN CONT IV Last administered on 08/16/19at 22:02; Start 08/16/19 at 22:00; Stop 08/17/19 at 21:59; Status DC Hydromorphone HCl (Dilaudid Standard ELIGIBILITY ANALYST) 12 mg STK-MED ONCE IV ; Start 08/15/19 at 14:35; Stop 08/16/19 at 13:53; Status DC Artificial Tears (Artificial Tears) 1 drop PRN Q15MIN PRN OU DRY EYE Last administered on 09/11/19at 11:15; Start 08/17/19 at 05:30 Hydromorphone HCl (Dilaudid Standard ELIGIBILITY ANALYST) 12 mg STK-MED ONCE IV ; Start 08/16/19 at 12:05; Stop 08/17/19 at 09:15; Status DC Potassium Acetate 65 meq/Magnesium Sulfate 20 meq/ Calcium Gluconate 10 meq/ Multivitamins 10 ml/Chromium/ Copper/Manganese/ Seleni/Zn 0.5 ml/ Insulin Human Regular 30 unit/ Total Parenteral Nutrition/Amino Acids/Dextrose/ Fat Emulsion Intravenous 1,920 ml @ 80 mls/hr TPN CONT IV Last administered on 08/17/19at 22:22; Start 08/17/19 at 22:00; Stop 08/18/19 at 21:59; Status DC Cyclobenzaprine HCl (Flexeril) 10 mg PRN Q6HRS PRN PO MUSCLE SPASMS; Start 08/18/19 at 10:45 Potassium Acetate 55 meq/Magnesium Sulfate 20 meq/ Calcium Gluconate 10 meq/ Multivitamins 10 ml/Chromium/ Copper/Manganese/ Seleni/Zn 0.5 ml/ Insulin Human Regular 30 unit/ Total Parenteral Nutrition/Amino Acids/Dextrose/ Fat Emulsion Intravenous 1,920 ml @ 80 mls/hr TPN CONT IV Last administered on 08/19/19at 01:00; Start 08/18/19 at 22:00; Stop 08/19/19 at 21:59; Status DC Magnesium Sulfate 50 ml @ 25 mls/hr 1X ONCE IV Last administered on 08/18/19at 17:18; Start 08/18/19 at 12:45; Stop 08/18/19 at 14:44; Status DC Potassium Chloride/Water 100 ml @ 100 mls/hr 1X ONCE IV Last administered on 08/19/19at 11:27; Start 08/19/19 at 12:00; Stop 08/19/19 at 12:59; Status DC Hydromorphone HCl (Dilaudid Standard ELIGIBILITY ANALYST) 12 mg STK-MED ONCE IV ; Start 08/17/19 at 10:50; Stop 08/19/19 at 11:02; Status DC Hydromorphone HCl (Dilaudid Standard ELIGIBILITY ANALYST) 12 mg STK-MED ONCE IV ; Start 08/18/19 at 13:47; Stop 08/19/19 at 11:03; Status DC Potassium Acetate 30 meq/Magnesium Sulfate 20 meq/ Calcium Gluconate 10 meq/ Multivitamins 10 ml/Chromium/ Copper/Manganese/ Seleni/Zn 0.5 ml/ Insulin Human Regular 30 unit/ Potassium Chloride 30 meq/ Total Parenteral Nutrition/Amino Acids/Dextrose/ Fat Emulsion Intravenous 1,920 ml @ 80 mls/hr TPN CONT IV Last administered on 08/19/19at 22:34; Start 08/19/19 at 22:00; Stop 08/20/19 at 21:59; Status DC Potassium Chloride/Water 100 ml @ 100 mls/hr Q1H IV Last administered on 08/20/19at 13:05; Start 08/20/19 at 07:00; Stop 08/20/19 at 10:59; Status DC Magnesium Sulfate 50 ml @ 25 mls/hr 1X ONCE IV Last administered on 08/20/19at 10:34; Start 08/20/19 at 10:30; Stop 08/20/19 at 12:29; Status DC Potassium Chloride 75 meq/ Magnesium Sulfate 20 meq/Calcium Gluconate 10 meq/ Multivitamins 10 ml/Chromium/ Copper/Manganese/ Seleni/Zn 0.5 ml/ Insulin Human Regular 30 unit/ Total Parenteral Nutrition/Amino Acids/Dextrose/ Fat Emulsion Intravenous 1,920 ml @ 80 mls/hr TPN CONT IV Last administered on 08/20/19at 21:51; Start 08/20/19 at 22:00; Stop 08/21/19 at 22:00; Status DC Potassium Chloride 75 meq/ Magnesium Sulfate 20 meq/Calcium Gluconate 10 meq/ Multivitamins 10 ml/Chromium/ Copper/Manganese/ Seleni/Zn 0.5 ml/ Insulin Human Regular 25 unit/ Total Parenteral Nutrition/Amino Acids/Dextrose/ Fat Emulsion Intravenous 1,920 ml @ 80 mls/hr TPN CONT IV Last administered on 08/21/19at 22:04; Start 08/21/19 at 22:00; Stop 08/22/19 at 21:59; Status DC Hydromorphone HCl (Dilaudid) 0.4 mg PRN Q4HRS PRN IVP PAIN Last administered on 08/22/19at 10:57; Start 08/22/19 at 09:00; Stop 08/22/19 at 18:59; Status DC Micafungin Sodium 100 mg/Dextrose 100 ml @ 100 mls/hr Q24H IV Last administered on 09/12/19at 11:11; Start 08/22/19 at 11:00 Daptomycin 485 mg/ Sodium Chloride 50 ml @ 100 mls/hr Q24H IV Last administered on 08/29/19at 13:10; Start 08/22/19 at 11:00; Stop 08/30/19 at 07:44; Status DC Potassium Chloride 75 meq/ Magnesium Sulfate 15 meq/Calcium Gluconate 8 meq/ Multivitamins 10 ml/Chromium/ Copper/Manganese/ Seleni/Zn 0.5 ml/ Insulin Human Regular 25 unit/ Total Parenteral Nutrition/Amino Acids/Dextrose/ Fat Emulsion Intravenous 1,920 ml @ 80 mls/hr TPN CONT IV Last administered on 08/22/19at 23:08; Start 08/22/19 at 22:00; Stop 08/23/19 at 21:59; Status DC Haloperidol Lactate (Haldol Inj) 3 mg 1X ONCE IVP Last administered on 0at 14:37; Start 08/22/19 at 14:30; Stop 08/22/19 at 14:31; Status DC Hydromorphone HCl (Dilaudid) 1 mg PRN Q4HRS PRN IVP PAIN Last administered on 09/05/19at 06:25; Start 08/22/19 at 19:00; Stop 09/05/19 at 17:10; Status DC Potassium Chloride 75 meq/ Magnesium Sulfate 15 meq/Calcium Gluconate 8 meq/ Multivitamins 10 ml/Chromium/ Copper/Manganese/ Seleni/Zn 0.5 ml/ Insulin Human Regular 20 unit/ Total Parenteral Nutrition/Amino Acids/Dextrose/ Fat Emulsion Intravenous 1,920 ml @ 80 mls/hr TPN CONT IV Last administered on 08/23/19at 22:10; Start 08/23/19 at 22:00; Stop 08/24/19 at 21:59; Status DC Lidocaine HCl (Buffered Lidocaine 1%) 3 ml STK-MED ONCE .ROUTE ; Start 08/24/19 at 11:31; Stop 08/24/19 at 11:31; Status DC Lidocaine HCl (Buffered Lidocaine 1%) 3 ml STK-MED ONCE .ROUTE ; Start 08/24/19 at 12:28; Stop 08/24/19 at 12:29; Status DC Lidocaine HCl (Buffered Lidocaine 1%) 6 ml 1X ONCE INJ Last administered on 08/24/19at 12:53; Start 08/24/19 at 12:45; Stop 08/24/19 at 12:46; Status DC Potassium Chloride 75 meq/ Magnesium Sulfate 15 meq/Calcium Gluconate 8 meq/ Multivitamins 10 ml/Chromium/ Copper/Manganese/ Seleni/Zn 0.5 ml/ Insulin Human Regular 20 unit/ Total Parenteral Nutrition/Amino Acids/Dextrose/ Fat Emulsion Intravenous 1,920 ml @ 80 mls/hr TPN CONT IV Last administered on 08/24/19at 22:00; Start 08/24/19 at 22:00; Stop 08/25/19 at 21:59; Status DC Potassium Chloride 75 meq/ Magnesium Sulfate 15 meq/Calcium Gluconate 8 meq/ Multivitamins 10 ml/Chromium/ Copper/Manganese/ Seleni/Zn 0.5 ml/ Insulin Human Regular 15 unit/ Total Parenteral Nutrition/Amino Acids/Dextrose/ Fat Emulsion Intravenous 1,920 ml @ 80 mls/hr TPN CONT IV Last administered on 08/25/19at 22:28; Start 08/25/19 at 22:00; Stop 08/26/19 at 21:59; Status DC Vecuronium Dunlow (Norcuron Bolus) 6 mg PRN Q6HRS PRN IV VENT ASYNCHRONY; Start 08/25/19 at 19:15; Stop 08/25/19 at 19:35; Status DC Bumetanide (Bumex) 2 mg 1X ONCE IV Last administered on 08/25/19at 22:09; Start 08/25/19 at 19:45; Stop 08/25/19 at 19:46; Status DC Lidocaine HCl (Buffered Lidocaine 1%) 3 ml STK-MED ONCE .ROUTE ; Start 08/26/19 at 07:59; Stop 08/26/19 at 07:59; Status DC Midazolam HCl (Versed) 5 mg STK-MED ONCE .ROUTE ; Start 08/26/19 at 08:36; Stop 08/26/19 at 08:36; Status DC Fentanyl Citrate (Fentanyl 5ml Vial) 250 mcg STK-MED ONCE .ROUTE ; Start 08/26/19 at 08:36; Stop 08/26/19 at 08:37; Status DC Lidocaine HCl (Buffered Lidocaine 1%) 3 ml 1X ONCE IJ Last administered on 08/26/19at 09:30; Start 08/26/19 at 09:15; Stop 08/26/19 at 09:16; Status DC Midazolam HCl (Versed) 5 mg 1X ONCE IV Last administered on 08/26/19at 09:30; Start 08/26/19 at 09:15; Stop 08/26/19 at 09:16; Status DC Fentanyl Citrate (Fentanyl 5ml Vial) 250 mcg 1X ONCE IV Last administered on 08/26/19at 09:30; Start 08/26/19 at 09:15; Stop 08/26/19 at 09:16; Status DC Bumetanide (Bumex) 2 mg DAILY IV Last administered on 09/05/19at 08:07; Start 08/26/19 at 10:00; Stop 09/05/19 at 17:15; Status DC Potassium Chloride 75 meq/ Magnesium Sulfate 15 meq/ Multivitamins 10 ml/Chromium/ Copper/Manganese/ Seleni/Zn 0.5 ml/ Insulin Human Regular 15 unit/ Total Parenteral Nutrition/Amino Acids/Dextrose/ Fat Emulsion Intravenous 1,920 ml @ 80 mls/hr TPN CONT IV Last administered on 08/26/19at 21:59; Start 08/26/19 at 22:00; Stop 08/27/19 at 21:59; Status DC Metoclopramide HCl (Reglan Vial) 10 mg PRN Q3HRS PRN IVP NAUSEA/VOMITING-3rd choice Last administered on 09/01/19at 04:25; Start 08/27/19 at 16:45 Potassium Chloride 75 meq/ Magnesium Sulfate 15 meq/ Multivitamins 10 ml/Chromium/ Copper/Manganese/ Seleni/Zn 0.5 ml/ Insulin Human Regular 15 unit/ Total Parenteral Nutrition/Amino Acids/Dextrose/ Fat Emulsion Intravenous 1,920 ml @ 80 mls/hr TPN CONT IV Last administered on 08/27/19at 22:41; Start 08/27/19 at 22:00; Stop 08/28/19 at 21:59; Status DC Magnesium Sulfate 50 ml @ 25 mls/hr 1X ONCE IV Last administered on 08/28/19at 10:44; Start 08/28/19 at 09:00; Stop 08/28/19 at 10:59; Status DC Potassium Chloride/Water 100 ml @ 100 mls/hr 1X ONCE IV Last administered on 08/28/19at 09:37; Start 08/28/19 at 09:00; Stop 08/28/19 at 09:59; Status DC Duloxetine HCl (Cymbalta) 30 mg DAILY PO Last administered on 08/29/19at 09:48; Start 08/28/19 at 14:00; Stop 08/31/19 at 10:25; Status DC Potassium Chloride 80 meq/ Magnesium Sulfate 20 meq/ Multivitamins 10 ml/Chromium/ Copper/Manganese/ Seleni/Zn 0.5 ml/ Insulin Human Regular 15 unit/ Total Parenteral Nutrition/Amino Acids/Dextrose/ Fat Emulsion Intravenous 1,920 ml @ 80 mls/hr TPN CONT IV Last administered on 08/28/19at 21:42; Start 08/28/19 at 22:00; Stop 08/29/19 at 21:59; Status DC Potassium Chloride 80 meq/ Magnesium Sulfate 20 meq/ Multivitamins 10 ml/Chromium/ Copper/Manganese/ Seleni/Zn 0.5 ml/ Insulin Human Regular 15 unit/ Total Parenteral Nutrition/Amino Acids/Dextrose/ Fat Emulsion Intravenous 1,920 ml @ 80 mls/hr TPN CONT IV Last administered on 08/29/19at 22:20; Start 08/29/19 at 22:00; Stop 08/30/19 at 21:59; Status DC Lidocaine HCl (Buffered Lidocaine 1%) 3 ml STK-MED ONCE .ROUTE ; Start 08/30/19 at 09:54; Stop 08/30/19 at 09:55; Status DC Hydromorphone HCl (Dilaudid Standard ELIGIBILITY ANALYST) 12 mg STK-MED ONCE IV ; Start 08/19/19 at 15:50; Stop 08/30/19 at 11:24; Status DC Potassium Chloride 80 meq/ Magnesium Sulfate 20 meq/ Multivitamins 10 ml/Chromium/ Copper/Manganese/ Seleni/Zn 0.5 ml/ Insulin Human Regular 15 unit/ Total Parenteral Nutrition/Amino Acids/Dextrose/ Fat Emulsion Intravenous 1,920 ml @ 80 mls/hr TPN CONT IV Last administered on 08/30/19at 21:40; Start 08/30/19 at 22:00; Stop 08/31/19 at 21:59; Status DC Lidocaine HCl (Buffered Lidocaine 1%) 6 ml 1X ONCE INJ Last administered on 08/30/19at 14:15; Start 08/30/19 at 14:15; Stop 08/30/19 at 14:16; Status DC Potassium Chloride 80 meq/ Magnesium Sulfate 20 meq/ Multivitamins 10 ml/Chromium/ Copper/Manganese/ Seleni/Zn 1 ml/ Insulin Human Regular 15 unit/ Total Parenteral Nutrition/Amino Acids/Dextrose/ Fat Emulsion Intravenous 1,920 ml @ 80 mls/hr TPN CONT IV Last administered on 08/31/19at 22:04; Start 08/31/19 at 22:00; Stop 09/01/19 at 21:59; Status DC Potassium Chloride/Water 100 ml @ 100 mls/hr 1X ONCE IV Last administered on 09/01/19at 11:34; Start 09/01/19 at 11:00; Stop 09/01/19 at 11:59; Status DC Potassium Chloride 90 meq/ Magnesium Sulfate 20 meq/ Multivitamins 10 ml/Chromium/ Copper/Manganese/ Seleni/Zn 1 ml/ Insulin Human Regular 15 unit/ Total Parenteral Nutrition/Amino Acids/Dextrose/ Fat Emulsion Intravenous 1,920 ml @ 80 mls/hr TPN CONT IV Last administered on 09/01/19at 22:57; Start 09/01/19 at 22:00; Stop 09/02/19 at 21:59; Status DC Potassium Chloride 90 meq/ Magnesium Sulfate 20 meq/ Multivitamins 10 ml/Chromium/ Copper/Manganese/ Seleni/Zn 1 ml/ Insulin Human Regular 15 unit/ Total Parenteral Nutrition/Amino Acids/Dextrose/ Fat Emulsion Intravenous 1,920 ml @ 80 mls/hr TPN CONT IV Last administered on 09/02/19at 22:48; Start 09/02/19 at 22:00; Stop 09/03/19 at 21:59; Status DC Potassium Chloride 90 meq/ Magnesium Sulfate 20 meq/ Multivitamins 10 ml/Chromium/ Copper/Manganese/ Seleni/Zn 1 ml/ Insulin Human Regular 15 unit/ Total Parenteral Nutrition/Amino Acids/Dextrose/ Fat Emulsion Intravenous 1,890 ml @ 78.75 mls/ hr TPN CONT IV Last administered on 09/03/19at 22:15; Start 09/03/19 at 22:00; Stop 09/04/19 at 21:59; Status DC Linezolid/Dextrose 300 ml @ 300 mls/hr Q12HR IV Last administered on 09/06/19at 21:08; Start 09/04/19 at 09:00; Stop 09/07/19 at 08:11; Status DC Daptomycin 450 mg/ Sodium Chloride 50 ml @ 100 mls/hr Q24H IV Last administered on 09/07/19at 09:25; Start 09/04/19 at 09:00; Stop 09/08/19 at 08:30; Status DC Potassium Chloride 90 meq/ Magnesium Sulfate 20 meq/ Multivitamins 10 ml/Chromium/ Copper/Manganese/ Seleni/Zn 1 ml/ Insulin Human Regular 15 unit/ Total Parenteral Nutrition/Amino Acids/Dextrose/ Fat Emulsion Intravenous 1,890 ml @ 78.75 mls/ hr TPN CONT IV Last administered on 09/04/19at 21:34; Start 09/04/19 at 22:00; Stop 09/05/19 at 21:59; Status DC Lorazepam (Ativan Inj) 2 mg STK-MED ONCE .ROUTE ; Start 09/04/19 at 14:58; Stop 09/04/19 at 14:58; Status DC Metoprolol Tartrate (Lopressor Vial) 5 mg 1X ONCE IVP Last administered on 09/04/19at 15:31; Start 09/04/19 at 15:15; Stop 09/04/19 at 15:16; Status DC Lorazepam (Ativan Inj) 2 mg 1X ONCE IVP Last administered on 09/04/19at 15:30; Start 09/04/19 at 15:15; Stop 09/04/19 at 15:16; Status DC Enoxaparin Sodium (Lovenox 40mg Syringe) 40 mg Q24H SQ Last administered on 09/12/19at 17:48; Start 09/04/19 at 17:00 Lorazepam (Ativan Inj) 1 mg PRN Q4HRS PRN IVP ANXIETY / AGITATION MILD-MOD Last administered on 09/10/19at 04:21; Start 09/04/19 at 19:15 Lorazepam (Ativan Inj) 2 mg PRN Q4HRS PRN IVP ANXIETY / AGITATION SEVERE Last administered on 09/05/19at 22:20; Start 09/04/19 at 19:15 Fentanyl Citrate (Fentanyl 2ml Vial) 50 mcg PRN Q4HRS PRN IVP SEVERE PAIN Last administered on 09/13/19at 06:39; Start 09/05/19 at 13:15 Fentanyl Citrate (Fentanyl 2ml Vial) 25 mcg PRN Q4HRS PRN IVP MODERATE PAIN Last administered on 09/11/19at 06:36; Start 09/05/19 at 13:15 Potassium Chloride 90 meq/ Magnesium Sulfate 20 meq/ Multivitamins 10 ml/Chromium/ Copper/Manganese/ Seleni/Zn 1 ml/ Insulin Human Regular 15 unit/ Total Parenteral Nutrition/Amino Acids/Dextrose/ Fat Emulsion Intravenous 1,890 ml @ 78.75 mls/ hr TPN CONT IV Last administered on 09/05/19at 22:18; Start 09/05/19 at 22:00; Stop 09/06/19 at 21:59; Status DC Furosemide (Lasix) 40 mg 1X ONCE IVP Last administered on 09/05/19at 21:51; Start 09/05/19 at 21:45; Stop 09/05/19 at 21:48; Status DC Albumin Human 100 ml @ 100 mls/hr 1X PRN PRN IV SEE COMMENTS; Start 09/06/19 at 01:30 Furosemide (Lasix) 40 mg [id number] IVP Last administered on 09/13/19at 08:01; Start 09/06/19 at 14:00 Potassium Chloride 90 meq/ Magnesium Sulfate 20 meq/ Multivitamins 10 ml/Chromium/ Copper/Manganese/ Seleni/Zn 1 ml/ Insulin Human Regular 15 unit/ Total Parenteral Nutrition/Amino Acids/Dextrose/ Fat Emulsion Intravenous 1,800 ml @ 75 mls/hr TPN CONT IV Last administered on 09/06/19at 22:31; Start 09/06/19 at 22:00; Stop 09/07/19 at 21:59; Status DC Potassium Chloride 90 meq/ Magnesium Sulfate 20 meq/ Multivitamins 10 ml/Chromium/ Copper/Manganese/ Seleni/Zn 1 ml/ Insulin Human Regular 15 unit/ Total Parenteral Nutrition/Amino Acids/Dextrose/ Fat Emulsion Intravenous 1,800 ml @ 75 mls/hr TPN CONT IV Last administered on 09/07/19at 22:28; Start 09/07/19 at 22:00; Stop 09/08/19 at 21:59; Status DC Potassium Chloride 110 meq/ Magnesium Sulfate 20 meq/ Multivitamins 10 ml/Chromium/ Copper/Manganese/ Seleni/Zn 1 ml/ Insulin Human Regular 15 unit/ Total Parenteral Nutrition/Amino Acids/Dextrose/ Fat Emulsion Intravenous 1,800 ml @ 75 mls/hr TPN CONT IV Last administered on 09/08/19at 22:01; Start 09/08/19 at 22:00; Stop 09/09/19 at 21:59; Status DC Saliva Substitute (Biotene Moisturizing Mouth) 2 spray PRN Q15MIN PRN PO DRY MOUTH; Start 09/08/19 at 11:00 Potassium Chloride 110 meq/ Magnesium Sulfate 20 meq/ Multivitamins 10 ml/Chromium/ Copper/Manganese/ Seleni/Zn 1 ml/ Insulin Human Regular 15 unit/ Total Parenteral Nutrition/Amino Acids/Dextrose/ Fat Emulsion Intravenous 1,800 ml @ 75 mls/hr TPN CONT IV Last administered on 09/09/19at 22:21; Start 09/09/19 at 22:00; Stop 09/10/19 at 21:59; Status DC Potassium Chloride 110 meq/ Magnesium Sulfate 20 meq/ Multivitamins 10 ml/Chromium/ Copper/Manganese/ Seleni/Zn 1 ml/ Insulin Human Regular 15 unit/ Total Parenteral Nutrition/Amino Acids/Dextrose/ Fat Emulsion Intravenous 1,800 ml @ 75 mls/hr TPN CONT IV Last administered on 09/10/19at 22:04; Start 09/10/19 at 22:00; Stop 09/11/19 at 21:59; Status DC Potassium Chloride 110 meq/ Magnesium Sulfate 20 meq/ Multivitamins 10 ml/Chromium/ Copper/Manganese/ Seleni/Zn 1 ml/ Insulin Human Regular 15 unit/ Total Parenteral Nutrition/Amino Acids/Dextrose/ Fat Emulsion Intravenous 1,800 ml @ 75 mls/hr TPN CONT IV Last administered on 09/11/19at 22:48; Start 09/11/19 at 22:00; Stop 09/12/19 at 21:59; Status DC Potassium Chloride 70 meq/ Magnesium Sulfate 20 meq/ Multivitamins 10 ml/Chromium/ Copper/Manganese/ Seleni/Zn 1 ml/ Insulin Human Regular 15 unit/ Total Parenteral Nutrition/Amino Acids/Dextrose/ Fat Emulsion Intravenous 1,800 ml @ 75 mls/hr TPN CONT IV Last administered on 09/12/19at 21:39; Start 09/12/19 at 22:00; Stop 09/13/19 at 21:59 Meropenem 500 mg/ Sodium Chloride 50 ml @ 100 mls/hr Q6HRS IV Last administered on 09/13/19at 06:01; Start 09/12/19 at 18:00 Active Scripts Active Reported Bisoprolol Fumarate 5 Mg Tablet 10 Mg PO DAILY Vitals/I & O Vital Sign - Last 24 Hours 09/12/19 09/12/19 09/12/19 09/12/19 08:57 09:45 10:00 11:00 Pulse 101 120 136 Resp 18 30 32 40 B/P (MAP) 109/64 (79) 144/82 (102) 141/80 (100) Pulse Ox 99 99 99 100 O2 Delivery Tracheal Collar Tracheal Collar Tracheal Collar Tracheal Collar O2 Flow Rate 8.0 8.0 8.0 8.0 09/12/19 09/12/19 09/12/19 09/12/19 11:09 11:56 12:00 13:00 Temp 100.4 100.4 Pulse 128 118 Resp 40 32 28 B/P (MAP) 117/69 (85) 130/66 (87) Pulse Ox 98 100 100 O2 Delivery Tracheal Collar Trach Collar Tracheal Collar Tracheal Collar O2 Flow Rate 8.0 8.0 8.0 8.0 09/12/19 09/12/19 09/12/19 09/12/19 13:49 14:00 14:30 15:00 Pulse 120 116 Resp 29 21 30 32 B/P (MAP) 127/84 (98) 103/66 (78) Pulse Ox 100 99 99 99 O2 Delivery Tracheal Collar Tracheal Collar Tracheal Collar Tracheal Collar O2 Flow Rate 8.0 8.0 8.0 8.0 09/12/19 09/12/19 09/12/19 09/12/19 15:32 16:00 17:00 17:50 Temp 98.6 98.6 Pulse 122 117 Resp 24 30 28 B/P (MAP) 133/80 (97) 122/70 (87) Pulse Ox 99 99 99 O2 Delivery Trach Collar Tracheal Collar Tracheal Collar Tracheal Collar O2 Flow Rate 8.0 8.0 8.0 8.0 09/11/20 5//20 5//20 5// 18:00 18:40 19:00 20:00 Temp 98.8 98.8 Pulse 115 114 114 Resp 28 28 22 27 B/P (MAP) 126/77 (93) 126/70 (88) 132/82 (99) Pulse Ox 99 99 99 96 O2 Delivery Tracheal Collar Tracheal Collar Tracheal Collar Tracheal Collar O2 Flow Rate 8.0 8.0 8.0 8.0 09/11/09/11/ 5// 5// 20:00 21:00 22:00 22:21 Pulse 112 92 Resp 22 19 27 B/P (MAP) 109/58 (75) 119/60 (79) Pulse Ox 100 100 96 O2 Delivery Trach Collar Tracheal Collar Tracheal Collar Tracheal Collar O2 Flow Rate 8.0 8.0 8.0 8.0 09/11/ 5// 5// 5/ 23:00 00:00 00:00 00:05 Temp 99.4 99.4 Pulse 101 107 Resp 23 22 B/P (MAP) 94/54 (67) 102/61 (75) Pulse Ox 100 96 98 O2 Delivery Tracheal Collar Trach Collar Tracheal Collar Tracheal Collar O2 Flow Rate 8.0 8.0 8.0 09/12/06 09// 5// 5/ 01:00 02:00 02:34 03:00 Pulse 106 109 108 Resp 22 21 18 21 B/P (MAP) 98/55 (69) 110/60 (77) 107/62 (77) Pulse Ox 99 99 97 100 O2 Delivery Tracheal Collar Tracheal Collar Tracheal Collar Tracheal Collar O2 Flow Rate 8.0 8.0 8.0 8.0 09/12/ 5//20 5//20 5// 03:45 04:00 05:00 06:00 Temp 98.2 98.2 Pulse 106 112 104 Resp 20 27 25 B/P (MAP) 112/71 (85) 112/62 (79) 93/54 (67) Pulse Ox 99 99 99 O2 Delivery Trach Collar Tracheal Collar Tracheal Collar Tracheal Collar O2 Flow Rate 8.0 8.0 8.0 8.0 09/13/19 07:00 Pulse 99 Resp 15 B/P (MAP) 109/58 (75) Pulse Ox 99 O2 Delivery Tracheal Collar O2 Flow Rate 8.0 Intake and Output 09/12/19 09/12/19 09/13/19 15:00 23:00 07:00 Intake Total 0 ml 957.66 ml 1089 ml Output Total 1690 ml 415 ml 380 ml Balance -1690 ml 542.66 ml 709 ml ABI AHN MD September 13, 2019 08:54
[2019-09-13] MEDS: ONDANSETRON PF 4 MG/2 ML VIAL. IV PRN (09:51)
--- NOTE | 2019-09-13 10:19 | PDOC ---
PULMONARY PROGRESS NOTES Subjective Patient intubated on 07/10 , s/p trach 4/6, Remains on TS Denies SOB or increased cough, continues to have Nausea-- NG to LIS in place Vitals Vital Signs Date Time Temp Pulse Resp B/P (MAP) Pulse Ox O2 Delivery O2 Flow Rate FiO2 09/13/19 10:00 125 24 135/68 (90) 99 Tracheal Collar 8.0 09/13/19 08:00 98.5 98.5 ROS: No Chest Pain, No Abdominal Pain, No Increase Cough General: Alert, No acute distress HEENT: Other (trach midline ) Lungs: Other (Good air movement but having a lot of productive sputum from her tracheostomy site) Cardiovascular: S1, S2 Abdomen: Soft, Non-tender Neuro Exam: Alert Extremities: Other (+3 generalized edema ) Skin: Warm, Dry Labs Laboratory Tests Test 09/11/19 11:25 09/11/19 23:39 09/12/19 06:50 09/12/19 06:52 White Blood Count 16.0 x10^3/uL (4.0-11.0) Red Blood Count 2.94 x10^6/uL (3.50-5.40) Hemoglobin 8.5 g/dL (12.0-15.5) Hematocrit 25.5 % (36.0-47.0) Mean Corpuscular Volume 87 fL (79-100) Mean Corpuscular Hemoglobin 29 pg (25-35) Mean Corpuscular Hemoglobin Concent 34 g/dL (31-37) Red Cell Distribution Width 19.0 % (11.5-14.5) Platelet Count 317 x10^3/uL (140-400) Sodium Level 136 mmol/L (136-145) 135 mmol/L (136-145) Potassium Level 4.8 mmol/L (3.5-5.1) 5.0 mmol/L (3.5-5.1) Chloride Level 98 mmol/L (98-107) 97 mmol/L (98-107) Carbon Dioxide Level 34 mmol/L (21-32) 34 mmol/L (21-32) Anion Gap 4 (6-14) 4 (6-14) Blood Urea Nitrogen 23 mg/dL (7-20) 24 mg/dL (7-20) Creatinine 0.8 mg/dL (0.6-1.0) 0.8 mg/dL (0.6-1.0) Estimated GFR (Cockcroft-Gault) 76.2 76.2 BUN/Creatinine Ratio 29 (6-20) 30 (6-20) Glucose Level 131 mg/dL (70-99) 140 mg/dL (70-99) Calcium Level 10.1 mg/dL (8.5-10.1) 10.0 mg/dL (8.5-10.1) Total Bilirubin 0.7 mg/dL (0.2-1.0) 0.7 mg/dL (0.2-1.0) Aspartate Amino Transf (AST/SGOT) 34 U/L (15-37) 26 U/L (15-37) Alanine Aminotransferase (ALT/SGPT) 25 U/L (14-59) 25 U/L (14-59) Alkaline Phosphatase 131 U/L (46-116) 119 U/L (46-116) Total Protein 6.9 g/dL (6.4-8.2) 6.9 g/dL (6.4-8.2) Albumin 2.4 g/dL (3.4-5.0) 2.3 g/dL (3.4-5.0) Albumin/Globulin Ratio 0.5 (1.0-1.7) 0.5 (1.0-1.7) Glucose (Fingerstick) 161 mg/dL (70-99) 135 mg/dL (70-99) Phosphorus Level 5.2 mg/dL (2.6-4.7) Magnesium Level 2.3 mg/dL (1.8-2.4) Triglycerides Level 217 mg/dL (0-150) Test 09/12/19 17:46 09/12/19 23:55 09/13/19 05:45 09/13/19 06:00 Glucose (Fingerstick) 173 mg/dL (70-99) 166 mg/dL (70-99) 170 mg/dL (70-99) White Blood Count 11.4 x10^3/uL (4.0-11.0) Red Blood Count 2.80 x10^6/uL (3.50-5.40) Hemoglobin 8.0 g/dL (12.0-15.5) Hematocrit 24.4 % (36.0-47.0) Mean Corpuscular Volume 87 fL (79-100) Mean Corpuscular Hemoglobin 28 pg (25-35) Mean Corpuscular Hemoglobin Concent 33 g/dL (31-37) Red Cell Distribution Width 19.5 % (11.5-14.5) Platelet Count 325 x10^3/uL (140-400) Neutrophils (%) (Auto) 72 % (31-73) Lymphocytes (%) (Auto) 17 % (24-48) Monocytes (%) (Auto) 9 % (0-9) Eosinophils (%) (Auto) 2 % (0-3) Basophils (%) (Auto) 0 % (0-3) Neutrophils # (Auto) 8.2 x10^3/uL (1.8-7.7) Lymphocytes # (Auto) 2.0 x10^3/uL (1.0-4.8) Monocytes # (Auto) 1.0 x10^3/uL (0.0-1.1) Eosinophils # (Auto) 0.2 x10^3/uL (0.0-0.7) Basophils # (Auto) 0.0 x10^3/uL (0.0-0.2) Sodium Level 134 mmol/L (136-145) Potassium Level 4.6 mmol/L (3.5-5.1) Chloride Level 97 mmol/L (98-107) Carbon Dioxide Level 33 mmol/L (21-32) Anion Gap 4 (6-14) Blood Urea Nitrogen 28 mg/dL (7-20) Creatinine 0.9 mg/dL (0.6-1.0) Estimated GFR (Cockcroft-Gault) 66.5 Glucose Level 183 mg/dL (70-99) Calcium Level 10.0 mg/dL (8.5-10.1) Laboratory Tests Test 09/12/19 17:46 09/12/19 23:55 09/13/19 05:45 09/13/19 06:00 Glucose (Fingerstick) 173 mg/dL (70-99) 166 mg/dL (70-99) 170 mg/dL (70-99) White Blood Count 11.4 x10^3/uL (4.0-11.0) Red Blood Count 2.80 x10^6/uL (3.50-5.40) Hemoglobin 8.0 g/dL (12.0-15.5) Hematocrit 24.4 % (36.0-47.0) Mean Corpuscular Volume 87 fL (79-100) Mean Corpuscular Hemoglobin 28 pg (25-35) Mean Corpuscular Hemoglobin Concent 33 g/dL (31-37) Red Cell Distribution Width 19.5 % (11.5-14.5) Platelet Count 325 x10^3/uL (140-400) Neutrophils (%) (Auto) 72 % (31-73) Lymphocytes (%) (Auto) 17 % (24-48) Monocytes (%) (Auto) 9 % (0-9) Eosinophils (%) (Auto) 2 % (0-3) Basophils (%) (Auto) 0 % (0-3) Neutrophils # (Auto) 8.2 x10^3/uL (1.8-7.7) Lymphocytes # (Auto) 2.0 x10^3/uL (1.0-4.8) Monocytes # (Auto) 1.0 x10^3/uL (0.0-1.1) Eosinophils # (Auto) 0.2 x10^3/uL (0.0-0.7) Basophils # (Auto) 0.0 x10^3/uL (0.0-0.2) Sodium Level 134 mmol/L (136-145) Potassium Level 4.6 mmol/L (3.5-5.1) Chloride Level 97 mmol/L (98-107) Carbon Dioxide Level 33 mmol/L (21-32) Anion Gap 4 (6-14) Blood Urea Nitrogen 28 mg/dL (7-20) Creatinine 0.9 mg/dL (0.6-1.0) Estimated GFR (Cockcroft-Gault) 66.5 Glucose Level 183 mg/dL (70-99) Calcium Level 10.0 mg/dL (8.5-10.1) Medications Active Scripts Medications Dose Route/Sig Max Daily Dose Days Date Category Bisoprolol Fumarate 5 Mg Tablet 10 Mg PO DAILY 07/04/19 Reported Impression . IMPRESSION: 1. Acute hypoxemic respiratory failure secondary to ARDS status post trach, 2. Gallstone pancreatitis 3. Severe metabolic acidosis.stable 4. Acute kidney injury-stable, Off HD-- continue to improve 5. Acute gallstone pancreatitis. 6. Hypoalbuminemia. 7. Moderate persistent effusions, s/p left thora 08/29 8. Fever- Per ID, per surgery--resolved 9. Chronic anemia 10. Covid 19 testing negative 11. Moderate to large ascites-S/P paracentisis 12.S/P paracentisis with 4 liters removed on 08/03/19 13. S/P IR drain placement on 08/26/2019 Plan . 1.Continue supplemental oxygen via trach shield-- PMV/capping as tolerated 2. s/p thoracentesis, 08/29, 3 litres removed 3. Follow surgery recs-- S/P 3 drain placed in IR on 08/26/2019 4. Follow ID recs for ABX 5. Follow nephrology recs 6. Continue TPN DVT/GI PPX: heparin SQ/ protonix D/W RN and RT, CODE:FULL VINAYAK LANDRUM MD September 13, 2019 10:19
--- NOTE | 2019-09-13 10:36 | PDOC ---
[employer] PROGRESS NOTE Chief Complaint Chief Complaint Acute hypoxic Respiratory failure requiring mechanical ventilation (now extubated for several days but still with tracheostomy) Tracheostomy bilateral pleural effusions/pulm edema Sepsis Severe Acute gallstone pancreatitis (not a surgical candidate at this time) with necrosis Acute kidney failure now requiring dialysis Salpingitis Gallstones (Calculus of gallbladder with acute cholecystitis without obstruc tion) HTN Leukocytosis Hypoxia Uterine fibroid Intractable pain Intractable nausea Covid 19 negative. Acute on chronic anemia EEG: No seizure activityFever - better currently - intermittent could be from underlying pancreatitis blood cults 08/21 - neg so far ? Ileus with vomiting Abd distention - U/S and CT reviewed s/p 0.4 L of opaque, debris-containing ascites was removed 08/23 Acute pancreatitis with persistent necrosis - 08/14 status post KAYLIN drain placement + C paropsilosis. s/p additional drains 08/25 Anemia - S/p PRBCs Cholelithiasis with thickening of the gallbladder wall. Leucocytosis improving JUANA, hyperkalemia, Metabolic acidosis off dialysis Acute hypoxic resp failure ,bilateral pleural effusion and atelectasis hypocalcemia Prediabetes HTN s/p trach ESRD on HD Hyperglycemia History of Present Illness History of Present Illness 09/13/2019 Patient seen and examined in the ICU She is up in the chair very frail trying to talk a little shaky Discussed with RN Chart reviewed 09/12/2019 Patient seen and examined in the ICU Patient up in the chair Having a severe coughing episode with a lot of phlegm coming out of her tracheostomy Discussed with RN Discussed with physical therapy Chart reviewed 09/10,. feels well, has been out of room in wheelchair no complaint, still weak, some with not wanting to wear her valve on trach cont other, may be able to work with speech tomorrow, erum[place]anna OK to try, 09/09, anxiety is up today, she dislikes the valve still, shower and outside today . 09/08 she doesnt want to wear her passy-fantasma valve, discussed str and plan with her. speech following, needs swallow study, but needs to wear her valve longer, cont current able to walk some, walker 09/07 stronger, better, we discussed better oral care she would like to try swallow study, wants to try to eat, speech is following 09/07/2019 She remains in the ICU sitting up and working with OT, getting better if limit pain meds, may do better off the vent, Nurses trying to suction her, that is also improved, Chart reviewed 09/06/2019 Patient seen and examined in the ICU She had an episode yesterday of tachycardia and severe agitation we gave her some Ativan After that she seemed to have stroke symptoms but now that the Ativan has wore off her stroke symptoms have resolved She is on IV meropenem and daptomycin and micafungin Chart reviewed Discussed with RN Patient is still critically ill BRIEF OPERATIVE NOTE Pre-Op Diagnosis Pancreatitis with pseudocysts, suspected infection Post-Op Diagnosis same Procedure Performed CT abdominal Drains x 3 Surgeon Tesfaye Anesthesia Type: Conscious Sedation Findings 3 abdominal drains, 14F, with turbid pancreatic fluid and necrotic debris in each. Complications No immediate 08/26: Patient today somewhat restless and having bilious secretions from ET tube, imaging studies ordered, discussed with gis consultant. Pretty poor prognosis, hopefully is not a fistula, poor surgical candidate. 08/27: Imaging with no acute events, she seems more stable today compared to yesterday. Encouraged as much activity as possible patient at high risk for severe depression. Vitals/I&O Vitals/I&O: Vital Signs Date Time Temp Pulse Resp B/P (MAP) Pulse Ox O2 Delivery O2 Flow Rate FiO2 09/13/19 10:00 125 24 135/68 (90) 99 Tracheal Collar 8.0 09/13/19 08:00 98.5 98.5 I & O 09/12/19 09/12/19 09/13/19 15:00 23:00 07:00 Intake Total 0 ml 957.66 ml 1089 ml Output Total 1690 ml 415 ml 380 ml Balance -1690 ml 542.66 ml 709 ml Physical Exam Physical Exam: GENERAL: Just got up in the chair having a lot of coughing HEENT: Oral cavity clear, NGT NECK: Trach shield LUNGS: A lot of coughing with productive sputum from the tracheostomy site HEART: S1, S2, regular ABDOMEN: mod distention, hypoactive BS, tender, + drains x 3 : Lind (08/01) EXTREMITIES: Generalized edema, improving, no cyanosis, SCDs bilaterally SKIN: Warm and dry. No generalized rash. LITERARY AGENT: Very weak RUE-PICC (08/17) clean General: Alert, No acute distress Heart: Regular rate, Normal S1, Normal S2, No murmurs, Gallops Lungs: Other (Good air movement but having a lot of productive sputum from her tracheostomy site) Abdomen: Soft Extremities: No clubbing, No cyanosis, No edema, Normal pulses, No tenderness/swelling Skin: Other (warm, dry) Labs Labs: Laboratory Tests Test 09/12/19 17:46 09/12/19 23:55 09/13/19 05:45 09/13/19 06:00 Glucose (Fingerstick) 173 mg/dL (70-99) 166 mg/dL (70-99) 170 mg/dL (70-99) White Blood Count 11.4 x10^3/uL (4.0-11.0) Red Blood Count 2.80 x10^6/uL (3.50-5.40) Hemoglobin 8.0 g/dL (12.0-15.5) Hematocrit 24.4 % (36.0-47.0) Mean Corpuscular Volume 87 fL (79-100) Mean Corpuscular Hemoglobin 28 pg (25-35) Mean Corpuscular Hemoglobin Concent 33 g/dL (31-37) Red Cell Distribution Width 19.5 % (11.5-14.5) Platelet Count 325 x10^3/uL (140-400) Neutrophils (%) (Auto) 72 % (31-73) Lymphocytes (%) (Auto) 17 % (24-48) Monocytes (%) (Auto) 9 % (0-9) Eosinophils (%) (Auto) 2 % (0-3) Basophils (%) (Auto) 0 % (0-3) Neutrophils # (Auto) 8.2 x10^3/uL (1.8-7.7) Lymphocytes # (Auto) 2.0 x10^3/uL (1.0-4.8) Monocytes # (Auto) 1.0 x10^3/uL (0.0-1.1) Eosinophils # (Auto) 0.2 x10^3/uL (0.0-0.7) Basophils # (Auto) 0.0 x10^3/uL (0.0-0.2) Sodium Level 134 mmol/L (136-145) Potassium Level 4.6 mmol/L (3.5-5.1) Chloride Level 97 mmol/L (98-107) Carbon Dioxide Level 33 mmol/L (21-32) Anion Gap 4 (6-14) Blood Urea Nitrogen 28 mg/dL (7-20) Creatinine 0.9 mg/dL (0.6-1.0) Estimated GFR (Cockcroft-Gault) 66.5 Glucose Level 183 mg/dL (70-99) Calcium Level 10.0 mg/dL (8.5-10.1) Review of Systems Review of Systems: Complains of weakness complains of shortness of breath and cough Assessment and Plan Assessmemt and Plan Problems Medical Problems: (1) Acute pancreatitis Status: Acute (2) Cholelithiasis Status: Acute Acute hypoxic Respiratory failure requiring mechanical ventilation was initially intubated on 07/10 was off for couple of days now back on Severe gallstone pancreatitis (not a surgical candidate at this time) with necrosis Tracheostomy bilateral pleural effusions/pulm edema Severe sepsis Acute kidney failure now requiring dialysis Salpingitis Gallstones (Calculus of gallbladder with acute cholecystitis without obstruction) HTN Leukocytosis Hypoxia Uterine fibroid Intractable pain Intractable nausea Covid 19 negative. Acute on chronic anemia EEG: No seizure activityFever - better currently - intermittent could be from underlying pancreatitis blood cults 08/21 - neg so far ? Ileus with vomiting Abd distention - U/S and CT reviewed s/p 0.4 L of opaque, debris-containing asci lurdes was removed 08/23 Acute pancreatitis with persistent necrosis - 08/14 status post KAYLIN drain placement + C paropsilosis. s/p additional drains 08/25 Anemia - S/p PRBCs Cholelithiasis with thickening of the gallbladder wall. Leucocytosis improving JUANA, hyperkalemia, Metabolic acidosis off dialysis Acute hypoxic resp failure ,bilateral pleural effusion and atelectasis hypocalcemia Prediabetes HTN s/p trach ESRD on HD Hyperglycemia Plan ICU monitoring Wound care Hold off on Ativan for now as she gets too weak with it Humidified O2 via nasal cannula for now but we can use trach shield as backup NG suctioning Nebulizers Continue IV antibiotics and micafungin Sedation with Precedex PRN TPN protocol Continue Lind to bedside drainage Tracheostomy care Hope to eventually move towards decannulation (we have a speaking valve for now) Trend labs Appreciate subspecialist input She is still critically ill I am still very concerned about her long-term prognosis ! (she scored a 9 on [place] criteria 3 weeks ago). Total time 34-minute Comment Review of Relevant I have reviewed the following items kolby (where applicable) has been applied. Medications: Current Medications Medications (Trade) Dose Ordered Sig/Yvon Route PRN Reason Start Time Stop Time Status Last Admin Dose Admin Potassium Chloride 70 meq/ Magnesium Sulfate 20 meq/ Multivitamins 10 ml/Chromium/ Copper/Manganese/ Seleni/Zn 1 ml/ Insulin Human Regular 15 unit/ Total Parenteral Nutrition/Amino Acids/Dextrose/ Fat Emulsion Intravenous 1,800 ml @ 75 mls/hr TPN CONT IV 09/12/19 22:00 09/13/19 21:59 09/12/19 21:39 Meropenem 500 mg/ Sodium Chloride 50 ml @ 100 mls/hr Q6HRS IV 09/12/19 18:00 09/13/19 06:01 Hemodynamically unstable?: No Is patient in severe pain?: No Is NPO status required?: Yes BEBO KIRBY III DO September 13, 2019 10:36
--- NOTE | 2019-09-13 10:42 | NUR ---
SS following up with discharge planning. SS reviewed pt chart and discussed with pt RN. Pt remains on trach collar, TPN, IV antibiotics, and has three KAYLIN drains. Pt continues to work with PT/OT and make improvements. SS contacted LTACH facilities and discussed possible kevin placement and was notified that they do not have kevin beds. Pt is self pay. SS will continue to follow for discharge planning.
--- NOTE | 2019-09-13 11:19 | PDOC ---
[facility] PROGRESS NOTE Subjective Dislikes P-M valve. Would really like something orally. Objective NG still with bilious drainage. Physical Exam Lungs with coarse sounds anteriorly. RRR, tachy. Abdomen soft, not many bowel sounds. Review of Relevant I have reviewed the following items kolby (where applicable) has been applied. Labs Laboratory Tests Test 09/11/19 11:25 09/11/19 23:39 09/12/19 06:50 09/12/19 06:52 White Blood Count 16.0 x10^3/uL (4.0-11.0) Red Blood Count 2.94 x10^6/uL (3.50-5.40) Hemoglobin 8.5 g/dL (12.0-15.5) Hematocrit 25.5 % (36.0-47.0) Mean Corpuscular Volume 87 fL (79-100) Mean Corpuscular Hemoglobin 29 pg (25-35) Mean Corpuscular Hemoglobin Concent 34 g/dL (31-37) Red Cell Distribution Width 19.0 % (11.5-14.5) Platelet Count 317 x10^3/uL (140-400) Sodium Level 136 mmol/L (136-145) 135 mmol/L (136-145) Potassium Level 4.8 mmol/L (3.5-5.1) 5.0 mmol/L (3.5-5.1) Chloride Level 98 mmol/L (98-107) 97 mmol/L (98-107) Carbon Dioxide Level 34 mmol/L (21-32) 34 mmol/L (21-32) Anion Gap 4 (6-14) 4 (6-14) Blood Urea Nitrogen 23 mg/dL (7-20) 24 mg/dL (7-20) Creatinine 0.8 mg/dL (0.6-1.0) 0.8 mg/dL (0.6-1.0) Estimated GFR (Cockcroft-Gault) 76.2 76.2 BUN/Creatinine Ratio 29 (6-20) 30 (6-20) Glucose Level 131 mg/dL (70-99) 140 mg/dL (70-99) Calcium Level 10.1 mg/dL (8.5-10.1) 10.0 mg/dL (8.5-10.1) Total Bilirubin 0.7 mg/dL (0.2-1.0) 0.7 mg/dL (0.2-1.0) Aspartate Amino Transf (AST/SGOT) 34 U/L (15-37) 26 U/L (15-37) Alanine Aminotransferase (ALT/SGPT) 25 U/L (14-59) 25 U/L (14-59) Alkaline Phosphatase 131 U/L (46-116) 119 U/L (46-116) Total Protein 6.9 g/dL (6.4-8.2) 6.9 g/dL (6.4-8.2) Albumin 2.4 g/dL (3.4-5.0) 2.3 g/dL (3.4-5.0) Albumin/Globulin Ratio 0.5 (1.0-1.7) 0.5 (1.0-1.7) Glucose (Fingerstick) 161 mg/dL (70-99) 135 mg/dL (70-99) Phosphorus Level 5.2 mg/dL (2.6-4.7) Magnesium Level 2.3 mg/dL (1.8-2.4) Triglycerides Level 217 mg/dL (0-150) Test 09/12/19 17:46 09/12/19 23:55 09/13/19 05:45 09/13/19 06:00 Glucose (Fingerstick) 173 mg/dL (70-99) 166 mg/dL (70-99) 170 mg/dL (70-99) White Blood Count 11.4 x10^3/uL (4.0-11.0) Red Blood Count 2.80 x10^6/uL (3.50-5.40) Hemoglobin 8.0 g/dL (12.0-15.5) Hematocrit 24.4 % (36.0-47.0) Mean Corpuscular Volume 87 fL (79-100) Mean Corpuscular Hemoglobin 28 pg (25-35) Mean Corpuscular Hemoglobin Concent 33 g/dL (31-37) Red Cell Distribution Width 19.5 % (11.5-14.5) Platelet Count 325 x10^3/uL (140-400) Neutrophils (%) (Auto) 72 % (31-73) Lymphocytes (%) (Auto) 17 % (24-48) Monocytes (%) (Auto) 9 % (0-9) Eosinophils (%) (Auto) 2 % (0-3) Basophils (%) (Auto) 0 % (0-3) Neutrophils # (Auto) 8.2 x10^3/uL (1.8-7.7) Lymphocytes # (Auto) 2.0 x10^3/uL (1.0-4.8) Monocytes # (Auto) 1.0 x10^3/uL (0.0-1.1) Eosinophils # (Auto) 0.2 x10^3/uL (0.0-0.7) Basophils # (Auto) 0.0 x10^3/uL (0.0-0.2) Sodium Level 134 mmol/L (136-145) Potassium Level 4.6 mmol/L (3.5-5.1) Chloride Level 97 mmol/L (98-107) Carbon Dioxide Level 33 mmol/L (21-32) Anion Gap 4 (6-14) Blood Urea Nitrogen 28 mg/dL (7-20) Creatinine 0.9 mg/dL (0.6-1.0) Estimated GFR (Cockcroft-Gault) 66.5 Glucose Level 183 mg/dL (70-99) Calcium Level 10.0 mg/dL (8.5-10.1) Laboratory Tests Test 09/12/19 17:46 09/12/19 23:55 09/13/19 05:45 09/13/19 06:00 Glucose (Fingerstick) 173 mg/dL (70-99) 166 mg/dL (70-99) 170 mg/dL (70-99) White Blood Count 11.4 x10^3/uL (4.0-11.0) Red Blood Count 2.80 x10^6/uL (3.50-5.40) Hemoglobin 8.0 g/dL (12.0-15.5) Hematocrit 24.4 % (36.0-47.0) Mean Corpuscular Volume 87 fL (79-100) Mean Corpuscular Hemoglobin 28 pg (25-35) Mean Corpuscular Hemoglobin Concent 33 g/dL (31-37) Red Cell Distribution Width 19.5 % (11.5-14.5) Platelet Count 325 x10^3/uL (140-400) Neutrophils (%) (Auto) 72 % (31-73) Lymphocytes (%) (Auto) 17 % (24-48) Monocytes (%) (Auto) 9 % (0-9) Eosinophils (%) (Auto) 2 % (0-3) Basophils (%) (Auto) 0 % (0-3) Neutrophils # (Auto) 8.2 x10^3/uL (1.8-7.7) Lymphocytes # (Auto) 2.0 x10^3/uL (1.0-4.8) Monocytes # (Auto) 1.0 x10^3/uL (0.0-1.1) Eosinophils # (Auto) 0.2 x10^3/uL (0.0-0.7) Basophils # (Auto) 0.0 x10^3/uL (0.0-0.2) Sodium Level 134 mmol/L (136-145) Potassium Level 4.6 mmol/L (3.5-5.1) Chloride Level 97 mmol/L (98-107) Carbon Dioxide Level 33 mmol/L (21-32) Anion Gap 4 (6-14) Blood Urea Nitrogen 28 mg/dL (7-20) Creatinine 0.9 mg/dL (0.6-1.0) Estimated GFR (Cockcroft-Gault) 66.5 Glucose Level 183 mg/dL (70-99) Calcium Level 10.0 mg/dL (8.5-10.1) Microbiology 09/04/19 Blood Culture - Final, Complete NO GROWTH AFTER 5 DAYS 08/24/19 Fungal Culture - Final, Complete 08/24/19 Fungal Culture Result 1 - Final, Complete 08/18/19 Aerobic Culture - Final, Complete 08/18/19 Aerobic Culture Result 1 (ALEXANDRA) - Final, Complete 08/18/19 Gram Stain - Final, Complete 08/18/19 Gram Stain Result 1 (ALEXANDRA) - Final, Complete 08/18/19 Gram Stain Result 2 (ALEXANDRA) - Final, Complete 07/31/19 Urine Culture - Final, Complete 07/31/19 Urine Culture Result 1 (ALEXANDRA) - Final, Complete Vitals/I & O Vital Sign - Last 24 Hours 09/12/19 09/12/19 09/12/19 09/12/19 11:56 12:00 13:00 13:49 Temp 100.4 100.4 Pulse 128 118 Resp 32 28 29 B/P (MAP) 117/69 (85) 130/66 (87) Pulse Ox 100 100 100 O2 Delivery Trach Collar Tracheal Collar Tracheal Collar Tracheal Collar O2 Flow Rate 8.0 8.0 8.0 8.0 5//20 5//20 5//20 5//20 14:00 14:30 15:00 15:32 Pulse 120 116 Resp 32 B/P (MAP) 127/84 (98) 103/66 (78) Pulse Ox 99 99 99 O2 Delivery Tracheal Collar Tracheal Collar Tracheal Collar Trach Collar O2 Flow Rate 8.0 8.0 8.0 8.0 5/20 5//20 5//20 5// 16:00 17:00 17:50 18:00 Temp 98.6 98.6 Pulse 122 117 115 Resp 28 B/P (MAP) 133/80 (97) 122/70 (87) 126/77 (93) Pulse Ox 99 99 99 99 O2 Delivery Tracheal Collar Tracheal Collar Tracheal Collar Tracheal Collar O2 Flow Rate 8.0 8.0 8.0 8.0 5/20 5/20 5//20 5// 18:40 19:00 20:00 20:00 Temp 98.8 98.8 Pulse 114 114 Resp 28 22 27 B/P (MAP) 126/70 (88) 132/82 (99) Pulse Ox 99 99 96 O2 Delivery Tracheal Collar Tracheal Collar Tracheal Collar Trach Collar O2 Flow Rate 8.0 8.0 8.0 8.0 5/20 5//20 5//20 5// 21:00 22:00 22:21 23:00 Pulse 112 92 101 Resp 22 19 27 23 B/P (MAP) 109/58 (75) 119/60 (79) 94/54 (67) Pulse Ox 100 100 96 100 O2 Delivery Tracheal Collar Tracheal Collar Tracheal Collar Tracheal Collar O2 Flow Rate 8.0 8.0 8.0 8.0 5//20 5//20 5//20 5/ 00:00 00:00 00:05 01:00 Temp 99.4 99.4 Pulse 107 106 Resp 22 22 B/P (MAP) 102/61 (75) 98/55 (69) Pulse Ox 96 98 99 O2 Delivery Trach Collar Tracheal Collar Tracheal Collar Tracheal Collar O2 Flow Rate 8.0 8.0 8.0 09/13/19 09/13/19 09/13/19 09/13/19 02:00 02:34 03:00 03:45 Pulse 109 108 Resp 21 18 21 B/P (MAP) 110/60 (77) 107/62 (77) Pulse Ox 99 97 100 O2 Delivery Tracheal Collar Tracheal Collar Tracheal Collar Trach Collar O2 Flow Rate 8.0 8.0 8.0 8.0 09/13/19 09/13/19 09/13/19 09/13/19 04:00 05:00 06:00 07:00 Temp 98.2 98.2 Pulse 106 112 104 99 Resp 20 27 25 15 B/P (MAP) 112/71 (85) 112/62 (79) 93/54 (67) 109/58 (75) Pulse Ox 99 99 99 99 O2 Delivery Tracheal Collar Tracheal Collar Tracheal Collar Tracheal Collar O2 Flow Rate 8.0 8.0 8.0 8.0 09/13/19 09/13/19 09/13/19 09/13/19 08:00 08:00 09:00 10:00 Temp 98.5 98.5 Pulse 99 115 125 Resp 15 20 24 B/P (MAP) 132/62 (85) 119/60 (79) 135/68 (90) Pulse Ox 99 99 99 O2 Delivery Trach Collar Tracheal Collar Tracheal Collar Tracheal Collar O2 Flow Rate 8.0 8.0 8.0 8.0 09/13/19 09/13/19 10:51 11:00 Pulse 134 Resp 40 26 B/P (MAP) 100/69 (79) Pulse Ox 99 99 O2 Delivery Tracheal Collar O2 Flow Rate 8.0 8.0 Intake and Output 09/12/19 09/12/19 09/13/19 15:00 23:00 07:00 Intake Total 0 ml 957.66 ml 1089 ml Output Total 1690 ml 415 ml 380 ml Balance -1690 ml 542.66 ml 709 ml Problem List Problems Medical Problems: (1) Acute pancreatitis Status: Acute (2) Cholelithiasis Status: Acute Assessment Still needing NG or vomits. Overall, slowly improving. Plan of Care Note Continue as now. If ok with PIPE CHANGER, will allow ice chips. Hemodynamically unstable?: No Is patient in severe pain?: No Is NPO status required?: Yes MARY RIVAS MD September 13, 2019 11:19
[2019-09-13] MEDS ORDERED: BARIUM SULFATE 40% (APPLE) 148 GM PWD. PO ONE (11:45)
--- NOTE | 2019-09-13 12:00 | PDOC ---
SURGICAL PROGRESS NOTE Subjective talking this AM wants some ice chips Vital Signs Vital Signs Date Time Temp Pulse Resp B/P (MAP) Pulse Ox O2 Delivery O2 Flow Rate FiO2 09/13/19 11:00 134 26 100/69 (79) 99 Tracheal Collar 8.0 09/13/19 08:00 98.5 98.5 I&O Intake and Output 09/13/19 07:00 Intake Total 2046.66 ml Output Total 2485 ml Balance -438.34 ml Intake Oral 0 ml IV Total 2046.66 ml Output Urine Total 2225 ml Drainage Total 260 ml General: Alert HEENT: Other (trach cap on) Abdomen: Soft Labs Laboratory Tests Test 09/11/19 23:39 09/12/19 06:50 09/12/19 06:52 09/12/19 17:46 Glucose (Fingerstick) 161 mg/dL (70-99) 135 mg/dL (70-99) 173 mg/dL (70-99) Sodium Level 135 mmol/L (136-145) Potassium Level 5.0 mmol/L (3.5-5.1) Chloride Level 97 mmol/L (98-107) Carbon Dioxide Level 34 mmol/L (21-32) Anion Gap 4 (6-14) Blood Urea Nitrogen 24 mg/dL (7-20) Creatinine 0.8 mg/dL (0.6-1.0) Estimated GFR (Cockcroft-Gault) 76.2 BUN/Creatinine Ratio 30 (6-20) Glucose Level 140 mg/dL (70-99) Calcium Level 10.0 mg/dL (8.5-10.1) Phosphorus Level 5.2 mg/dL (2.6-4.7) Magnesium Level 2.3 mg/dL (1.8-2.4) Total Bilirubin 0.7 mg/dL (0.2-1.0) Aspartate Amino Transf (AST/SGOT) 26 U/L (15-37) Alanine Aminotransferase (ALT/SGPT) 25 U/L (14-59) Alkaline Phosphatase 119 U/L (46-116) Total Protein 6.9 g/dL (6.4-8.2) Albumin 2.3 g/dL (3.4-5.0) Albumin/Globulin Ratio 0.5 (1.0-1.7) Triglycerides Level 217 mg/dL (0-150) Test 09/12/19 23:55 09/13/19 05:45 09/13/19 06:00 Glucose (Fingerstick) 166 mg/dL (70-99) 170 mg/dL (70-99) White Blood Count 11.4 x10^3/uL (4.0-11.0) Red Blood Count 2.80 x10^6/uL (3.50-5.40) Hemoglobin 8.0 g/dL (12.0-15.5) Hematocrit 24.4 % (36.0-47.0) Mean Corpuscular Volume 87 fL (79-100) Mean Corpuscular Hemoglobin 28 pg (25-35) Mean Corpuscular Hemoglobin Concent 33 g/dL (31-37) Red Cell Distribution Width 19.5 % (11.5-14.5) Platelet Count 325 x10^3/uL (140-400) Neutrophils (%) (Auto) 72 % (31-73) Lymphocytes (%) (Auto) 17 % (24-48) Monocytes (%) (Auto) 9 % (0-9) Eosinophils (%) (Auto) 2 % (0-3) Basophils (%) (Auto) 0 % (0-3) Neutrophils # (Auto) 8.2 x10^3/uL (1.8-7.7) Lymphocytes # (Auto) 2.0 x10^3/uL (1.0-4.8) Monocytes # (Auto) 1.0 x10^3/uL (0.0-1.1) Eosinophils # (Auto) 0.2 x10^3/uL (0.0-0.7) Basophils # (Auto) 0.0 x10^3/uL (0.0-0.2) Sodium Level 134 mmol/L (136-145) Potassium Level 4.6 mmol/L (3.5-5.1) Chloride Level 97 mmol/L (98-107) Carbon Dioxide Level 33 mmol/L (21-32) Anion Gap 4 (6-14) Blood Urea Nitrogen 28 mg/dL (7-20) Creatinine 0.9 mg/dL (0.6-1.0) Estimated GFR (Cockcroft-Gault) 66.5 Glucose Level 183 mg/dL (70-99) Calcium Level 10.0 mg/dL (8.5-10.1) Laboratory Tests Test 09/12/19 17:46 09/12/19 23:55 09/13/19 05:45 09/13/19 06:00 Glucose (Fingerstick) 173 mg/dL (70-99) 166 mg/dL (70-99) 170 mg/dL (70-99) White Blood Count 11.4 x10^3/uL (4.0-11.0) Red Blood Count 2.80 x10^6/uL (3.50-5.40) Hemoglobin 8.0 g/dL (12.0-15.5) Hematocrit 24.4 % (36.0-47.0) Mean Corpuscular Volume 87 fL (79-100) Mean Corpuscular Hemoglobin 28 pg (25-35) Mean Corpuscular Hemoglobin Concent 33 g/dL (31-37) Red Cell Distribution Width 19.5 % (11.5-14.5) Platelet Count 325 x10^3/uL (140-400) Neutrophils (%) (Auto) 72 % (31-73) Lymphocytes (%) (Auto) 17 % (24-48) Monocytes (%) (Auto) 9 % (0-9) Eosinophils (%) (Auto) 2 % (0-3) Basophils (%) (Auto) 0 % (0-3) Neutrophils # (Auto) 8.2 x10^3/uL (1.8-7.7) Lymphocytes # (Auto) 2.0 x10^3/uL (1.0-4.8) Monocytes # (Auto) 1.0 x10^3/uL (0.0-1.1) Eosinophils # (Auto) 0.2 x10^3/uL (0.0-0.7) Basophils # (Auto) 0.0 x10^3/uL (0.0-0.2) Sodium Level 134 mmol/L (136-145) Potassium Level 4.6 mmol/L (3.5-5.1) Chloride Level 97 mmol/L (98-107) Carbon Dioxide Level 33 mmol/L (21-32) Anion Gap 4 (6-14) Blood Urea Nitrogen 28 mg/dL (7-20) Creatinine 0.9 mg/dL (0.6-1.0) Estimated GFR (Cockcroft-Gault) 66.5 Glucose Level 183 mg/dL (70-99) Calcium Level 10.0 mg/dL (8.5-10.1) Problem List Problems Medical Problems: (1) Acute pancreatitis Status: Acute (2) Cholelithiasis Status: Acute Assessment/Plan improving for [facility] eval today MARV WYNNE MD September 13, 2019 12:00
[2019-09-13] MEDS: MICAFUNGIN 100 MG in IV DEXTROSE 5% 100ML 100 ML IV SCH (12:17)
[2019-09-13] MEDS: IV NORMAL SALINE 1000ML BAG 1,000 ML IV SCH (13:37)
[2019-09-13] MEDS: TPN PER PHARMACY MC PRN (14:27)
--- NOTE | 2019-09-13 14:30 | NUR ---
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, 8 inches Weight: 75.782651 kg Current diet: NPO LABS: Sodium: 134 Potassium: 4.6 Chloride: 97 Calcium: 10.0 Corrected Calcium: 11.36 Magnesium: 2.3 CO2: 33 SCr: 0.9 Glucose: 166-183 Albumin: 2.3 AST: 26 ALT: 25 TPN FORMULA: TPN TYPE: Central Continuous AMINO ACIDS: 75 gm DEXTROSE: 250 gm LIPIDS: 40 gm SODIUM CHLORIDE: - mEq SODIUM ACETATE: - mEq SODIUM PHOSPHATE: - mmol POTASSIUM CHLORIDE: 70 mEq POTASSIUM ACETATE: - mEq POTASSIUM PHOSPHATE: - mmol MAGNESIUM: 20 mEq CALCIUM: - mEq INSULIN: 15 units MULTIPLE VITAMIN: 10 ml TRACE ELEMENTS: 1 ml(s) TPN PLAN: Macro increases per dietary. Labs stable, next , trig . R: Continue TPN as above. Will monitor electrolytes, glucose, and tolerance to TPN. CHRISTIAN VALLEJO [facility], 09/13/19 [id number]
--- NOTE | 2019-09-13 16:11 | RAD ---
Examination: VIDEO SWALLOW STUDY History: Aspiration Comparison/Correlation: None Findings: Video swallow was performed utilizing fluoroscopy for 3.9 minutes. Thin liquid, thick liquid, puree and cracker coated forms of barium were utilized. Oral motility and bolus formation are adequate. Moderate vallecular residuals are present. No gross aspiration is seen with thin liquid barium and to a lesser extent with nectar thick liquid barium. No aspiration with Honey thick liquid barium. With a passing air valve in place, deep penetration is noted with thin liquid barium. Vallecular residuals are smaller in quantity as compared to earlier when thick liquid and other substances were provided.. Impression: Aspiration with thin liquid and nectar thick liquid barium. Moderate size lacunar residuals which are less when passing air valve was in place. Electronically signed by: Peter Willett MD (09/13/2019 4:08 PM) [id number]
[2019-09-13] MEDS: ENOXAPARIN 40 MG/0.4 ML SYRINGE. SQ SCH (17:53)
[2019-09-13] MEDS: PROCHLORPERAZINE 10 MG/2 ML VIAL. IV PRN (21:22)
[2019-09-13] MEDS ORDERED: AMINO ACID IV SCH ×8 (22:00)
[2019-09-13] MEDS ORDERED: [UNRECOGNIZED DRUG - OTHER] IV SCH ×8 (22:00)
[2019-09-13] MEDS ORDERED: TOTAL PARENTERAL NUTRITION IV SCH ×8 (22:00)
[2019-09-13] MEDS ORDERED: DEXTROSE 70% IV SCH ×8 (22:00)
[2019-09-14] VITALS (24 sets, daily range): BP systolic 97–164; BP diastolic 48–93
[2019-09-14] MEDS: INSULIN LISPRO 300 UNITS/3 ML VIAL. SQ SCH ×3 (06:00→18:00)
[2019-09-14] MEDS: MEROPENEM 500 MG in IV NORMAL SALINE 50ML 50 ML IV SCH (06:02)
[2019-09-14] MEDS: fentaNYL PF VIAL 100 MCG/2 ML VIAL IVP PRN ×4 (06:11→21:19)
[2019-09-14] MEDS: FUROSEMIDE 40 MG/4 ML VIAL. IVP SCH ×2 (08:16→14:45)
[2019-09-14] MEDS: PANTOPRAZOLE IV PUSH 40 MG VIAL. IVP SCH (08:16)
--- NOTE | 2019-09-14 08:31 | PDOC ---
Infectious Disease Note Subjective: Subjective Patient continues to have a lot of respiratory secretions Afebrile last 24-hour Vital Signs: Vital Signs Vital Signs Date Time Temp Pulse Resp B/P (MAP) Pulse Ox O2 Delivery O2 Flow Rate FiO2 09/14/19 08:12 98.7 129 33 130/69 (89) 94 Room Air 98.7 09/14/19 04:00 Physical Exam: PHYSICAL EXAM GENERAL: Just got up in the chair having a lot of coughing HEENT: Oral cavity clear, NGT NECK: Trach shield LUNGS: A lot of coughing with productive sputum from the tracheostomy site HEART: S1, S2, regular ABDOMEN: mod distention, hypoactive BS, tender, + drains x 3 : Lind (08/01) EXTREMITIES: Generalized edema, improving, no cyanosis, SCDs bilaterally SKIN: Warm and dry. No generalized rash. 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 RUE-PICC (08/17) clean Medications: Inpatient Meds: Current Medications Medications (Trade) Dose Ordered Sig/Yvon Start Time Stop Time Status Last Admin Dose Admin Acetaminophen (Tylenol Supp) 650 mg PRN Q6HRS PRN 07/12/19 10:30 08/23/19 09:12 650 MG Acetaminophen (Tylenol) 650 mg PRN Q6HRS PRN 07/09/19 03:36 08/31/19 10:25 DC 08/04/19 19:56 650 MG Albumin Human 100 ml @ 100 mls/hr 1X PRN PRN 09/06/19 01:30 Albuterol Sulfate (Ventolin Neb Soln) 2.5 mg 1X ONCE 07/05/19 22:30 07/05/19 22:31 DC 07/06/19 00:56 2.5 MG Alteplase, Recombinant (Cathflo For Central Catheter Clearance) 1 mg 1X ONCE 08/12/19 10:45 08/12/19 10:46 DC 08/12/19 11:44 1 MG Amino Acids/ Glycerin/ Electrolytes 1,000 ml @ 75 mls/hr [id number] 08/08/19 21:15 UNV Artificial Tears (Artificial Tears) 1 drop PRN Q15MIN PRN 08/17/19 05:30 09/11/19 11:15 1 DROP Atenolol (Tenormin) 100 mg DAILY 3/17/20 09:00 07/04/19 20:08 DC Atropine Sulfate (ATROPINE 0.5mg SYRINGE) 0.5 mg PRN Q5MIN PRN 07/21/19 08:15 Barium Sulfate (Varibar Thin Liquid Apple) 148 gm 1X ONCE 09/13/19 11:45 09/13/19 11:49 DC Benzocaine (Hurricaine One) 1 spray 1X ONCE 07/08/19 14:30 07/08/19 14:31 DC 07/08/19 16:38 1 SPRAY Bisacodyl (Dulcolax Supp) 10 mg STK-MED ONCE 08/15/19 10:59 08/15/19 10:59 DC Bumetanide (Bumex) 2 mg DAILY 08/26/19 10:00 09/05/19 17:15 DC 09/05/19 08:07 2 MG Bupivacaine HCl/ Epinephrine Bitart (Sensorcain-Epi 0.5%-1:688338 Mpf) 30 ml STK-MED ONCE 08/15/19 10:58 08/15/19 10:58 DC 08/15/19 12:01 7 ML Calcium Carbonate/ Glycine (Tums) 500 mg PRN AFTMEALHC PRN 07/06/19 17:45 08/31/19 10:25 DC Calcium Chloride 1000 mg/Sodium Chloride 110 ml @ 220 mls/hr 1X ONCE 07/05/19 22:30 07/05/19 22:59 DC 07/05/19 22:11 220 MLS/HR Calcium Chloride 3000 mg/Sodium Chloride 1,030 ml @ 50 mls/hr [id number] 07/07/19 08:00 07/09/19 15:23 DC 07/09/19 02:17 50 MLS/HR Calcium Gluconate (Calcium Gluconate) 2,000 mg 1X ONCE 07/07/19 02:15 07/07/19 02:16 DC 07/07/19 02:19 2,000 MG Calcium Gluconate 1000 mg/Sodium Chloride 110 ml @ 220 mls/hr 1X ONCE 07/06/19 03:30 07/06/19 03:59 DC 07/06/19 03:21 220 MLS/HR Calcium Gluconate 2000 mg/Sodium Chloride 120 ml @ 220 mls/hr 1X ONCE 07/06/19 07:30 07/06/19 08:02 DC 07/06/19 09:05 220 MLS/HR Cefepime HCl (Maxipime) 2 gm Q12HR 07/13/19 09:00 07/27/19 09:58 DC 07/26/19 20:56 2 GM Cellulose (Surgicel Fibrillar 1x2) 1 each STK-MED ONCE 07/25/19 11:00 07/25/19 11:01 DC Cellulose (Surgicel Hemostat 2x14) 1 each STK-MED ONCE 08/15/19 10:58 08/15/19 10:59 DC Cellulose (Surgicel Hemostat 4x8) 1 each STK-MED ONCE 08/15/19 10:58 08/15/19 10:59 DC Cyclobenzaprine HCl (Flexeril) 10 mg PRN Q6HRS PRN 08/18/19 10:45 Daptomycin 430 mg/ Sodium Chloride 50 ml @ 100 mls/hr Q24H 08/13/19 13:00 08/18/19 20:58 DC 08/18/19 13:00 100 MLS/HR Daptomycin 450 mg/ Sodium Chloride 50 ml @ 100 mls/hr Q24H 09/04/19 09:00 09/08/19 08:30 DC 09/07/19 09:25 100 MLS/HR Daptomycin 485 mg/ Sodium Chloride 50 ml @ 100 mls/hr Q24H 08/22/19 11:00 08/30/19 07:44 DC 08/29/19 13:10 100 MLS/HR Daptomycin 500 mg/ Sodium Chloride 50 ml @ 100 mls/hr Q48H 07/13/19 08:30 07/29/19 10:07 DC 07/29/19 09:57 100 MLS/HR Dexamethasone Sodium Phosphate (Decadron) 4 mg STK-MED ONCE 08/15/19 10:56 08/15/19 10:57 DC Dexmedetomidine HCl 400 mcg/ Sodium Chloride 100 ml @ 0 mls/hr CONT PRN 07/21/19 08:15 09/13/19 15:16 0.02 MLS/HR Dextrose (Dextrose 50%-Water Syringe) 12.5 gm PRN Q15MIN PRN 07/04/19 09:30 Digoxin (Lanoxin) 125 mcg 1X ONCE 07/07/19 18:00 07/07/19 18:01 DC 07/07/19 17:10 125 MCG Diphenhydramine HCl (Benadryl) 25 mg 1X PRN PRN 08/12/19 15:45 08/13/19 15:44 DC Duloxetine HCl (Cymbalta) 30 mg DAILY 08/28/19 14:00 08/31/19 10:25 DC 08/29/19 09:48 30 MG Enoxaparin Sodium (Lovenox 100mg Syringe) 100 mg Q12HR 08/09/19 21:00 UNV Enoxaparin Sodium (Lovenox 40mg Syringe) 40 mg Q24H 09/04/19 17:00 09/13/19 17:53 40 MG Etomidate (Amidate) 8 mg 1X ONCE 07/11/19 08:30 07/11/19 08:31 DC 07/11/19 08:33 8 MG Fentanyl Citrate (Fentanyl 2ml Vial) 25 mcg PRN Q4HRS PRN 09/05/19 13:15 09/11/19 06:36 25 MCG Fentanyl Citrate (Fentanyl 5ml Vial) 250 mcg 1X ONCE 08/26/19 09:15 08/26/19 09:16 DC 08/26/19 09:30 50 MCG Furosemide (Lasix) 40 mg [id number] 09/06/19 14:00 09/14/19 08:16 40 MG Haloperidol Lactate (Haldol Inj) 3 mg 1X ONCE 08/22/19 14:30 08/22/19 14:31 DC 08/22/19 14:37 3 MG Heparin Sodium (Porcine) (Hep Lock Adult) 500 unit STK-MED ONCE 07/26/19 09:29 07/26/19 09:30 DC Heparin Sodium (Porcine) (Heparin Sodium) 5,000 unit Q12HR 08/15/19 21:00 08/25/19 09:59 DC 08/24/19 20:57 5,000 UNIT Heparin Sodium (Porcine) 1000 unit/Sodium Chloride 1,001 ml @ 1,001 mls/hr 1X ONCE 08/15/19 12:00 08/15/19 12:59 DC Hydromorphone HCl (Dilaudid Standard DISK SANDER) 12 mg STK-MED ONCE 08/19/19 15:50 08/30/19 11:24 DC Hydromorphone HCl (Dilaudid) 1 mg PRN Q4HRS PRN 08/22/19 19:00 09/05/19 17:10 DC 09/05/19 06:25 1 MG Info (CONTRAST GIVEN -- Rx MONITORING) 1 each PRN DAILY PRN 07/18/19 11:45 07/20/19 11:44 DC Info (Icu Electrolyte Protocol) 1 ea CONT PRN PRN 07/17/19 13:15 Info (PHARMACY MONITORING -- do not chart) 1 each PRN DAILY PRN 08/12/19 15:45 09/13/19 14:14 DC Info (Tpn Per Pharmacy) 1 each PRN DAILY PRN 07/06/19 12:30 UNV Insulin Human Lispro (HumaLOG) 0-9 UNITS Q6HRS 07/04/19 09:30 09/13/19 23:30 4 UNITS Insulin Human Regular (HumuLIN R VIAL) 5 unit 1X ONCE 07/05/19 22:30 07/05/19 22:31 DC 07/05/19 22:14 5 UNIT Iohexol (Omnipaque 240 Mg/ml) 30 ml 1X ONCE 07/18/19 11:30 07/18/19 11:33 DC 07/18/19 11:30 30 ML Iohexol (Omnipaque 300 Mg/ml) 50 ml STK-MED ONCE 08/15/19 10:58 08/15/19 10:59 DC Iohexol (Omnipaque 350 Mg/ml) 90 ml 1X ONCE 07/04/19 03:30 07/04/19 03:31 DC 07/04/19 03:25 90 ML Ketorolac Tromethamine (Toradol 30mg Vial) 30 mg 1X ONCE 07/04/19 03:00 07/04/19 03:01 DC 07/04/19 02:54 30 MG Lidocaine HCl (Buffered Lidocaine 1%) 6 ml 1X ONCE 08/30/19 14:15 08/30/19 14:16 DC 08/30/19 14:15 3 ML Lidocaine HCl (Glydo (Lidocaine) Jelly) 1 ramu 1X ONCE 07/08/19 14:30 07/08/19 14:31 DC 07/08/19 16:38 1 RAMU Lidocaine HCl (Xylocaine-Mpf 1% 2ml Vial) 2 ml PRN 1X PRN 08/15/19 07:00 08/16/19 06:59 DC Linezolid/Dextrose 300 ml @ 300 mls/hr Q12HR 09/04/19 09:00 09/07/19 08:11 DC 09/06/19 21:08 300 MLS/HR Lorazepam (Ativan Inj) 2 mg PRN Q4HRS PRN 09/04/19 19:15 09/13/19 23:23 2 MG Magnesium Sulfate 50 ml @ 25 mls/hr 1X ONCE 08/28/19 09:00 08/28/19 10:59 DC 08/28/19 10:44 25 MLS/HR Meropenem 1 gm/ Sodium Chloride 100 ml @ 200 mls/hr Q8HRS 08/16/19 14:00 09/09/19 09:31 DC 09/09/19 05:53 200 MLS/HR Meropenem 500 mg/ Sodium Chloride 50 ml @ 100 mls/hr Q6HRS 09/12/19 18:00 09/14/19 06:02 100 MLS/HR Metoclopramide HCl (Reglan Vial) 10 mg PRN Q3HRS PRN 08/27/19 16:45 09/01/19 04:25 10 MG Metoprolol Tartrate (Lopressor Vial) 5 mg 1X ONCE 09/04/19 15:15 09/04/19 15:16 DC 09/04/19 15:31 5 MG Metronidazole 100 ml @ 100 mls/hr Q8HRS 08/02/19 10:00 08/09/19 08:10 DC 08/09/19 06:04 100 MLS/HR Micafungin Sodium 100 mg/Dextrose 100 ml @ 100 mls/hr Q24H 08/22/19 11:00 09/13/19 12:17 100 MLS/HR Midazolam HCl (Versed) 5 mg 1X ONCE 08/26/19 09:15 08/26/19 09:16 DC 08/26/19 09:30 1 MG Midazolam HCl 100 mg/Sodium Chloride 100 ml @ 7 mls/hr CONT PRN 07/16/19 16:00 07/27/19 15:35 7 MLS/HR Midazolam HCl 50 mg/Sodium Chloride 50 ml @ 0 mls/hr CONT PRN 07/11/19 08:15 07/16/19 15:59 DC 07/14/19 22:39 7 MLS/HR Morphine Sulfate (Morphine Sulfate) 2 mg PRN Q2HR PRN 07/04/19 05:00 07/05/19 14:15 DC 07/05/19 12:26 2 MG Multi-Ingred Cream/Lotion/Oil/ Oint (Artificial Tears Eye Ointment) 1 ramu PRN Q1HR PRN 07/13/19 17:30 08/01/19 08:19 1 RAMU Naloxone HCl (Narcan) 0.4 mg PRN Q2MIN PRN 08/15/19 14:30 UNV Norepinephrine Bitartrate 8 mg/ Dextrose 258 ml @ 17.299 mls/ hr CONT PRN 07/05/19 15:30 08/05/19 09:19 DC 08/02/19 12:48 20.9 MLS/HR Ondansetron HCl (Zofran) 4 mg STK-MED ONCE 08/15/19 10:56 08/15/19 10:57 DC Pantoprazole Sodium (PROTONIX VIAL for IV PUSH) 40 mg DAILYAC 07/04/19 11:30 09/14/19 08:16 40 MG Phenylephrine HCl (PHENYLEPHRINE in 0.9% NACL PF) 1 mg STK-MED ONCE 08/15/19 12:34 08/15/19 12:34 DC Piperacillin Sod/ Tazobactam Sod 4.5 gm/Sodium Chloride 100 ml @ 200 mls/hr 1X ONCE 07/04/19 06:00 07/04/19 06:29 DC 07/04/19 05:44 200 MLS/HR Potassium Chloride 110 meq/ Magnesium Sulfate 20 meq/ Multivitamins 10 ml/Chromium/ Copper/Manganese/ Seleni/Zn 1 ml/ Insulin Human Regular 15 unit/ Total Parenteral Nutrition/Amino Acids/Dextrose/ Fat Emulsion Intravenous 1,800 ml @ 75 mls/hr TPN CONT 09/11/19 22:00 09/12/19 21:59 DC 09/11/19 22:48 75 MLS/HR Potassium Chloride 15 meq/ Bicarbonate Dialysis Soln w/ out KCl 5,007.5 ml @ 1,000 mls/ hr Q5H1M 07/17/19 20:00 07/21/19 13:08 DC 07/20/19 18:14 1,000 MLS/HR Potassium Chloride 20 meq/ Bicarbonate Dialysis Soln w/ out KCl 5,010 ml @ 1,000 mls/hr Q5H1M 07/13/19 16:00 07/17/19 19:59 DC 07/17/19 14:54 1,000 MLS/HR Potassium Chloride 70 meq/ Magnesium Sulfate 20 meq/ Multivitamins 10 ml/Chromium/ Copper/Manganese/ Seleni/Zn 1 ml/ Insulin Human Regular 15 unit/ Total Parenteral Nutrition/Amino Acids/Dextrose/ Fat Emulsion Intravenous 1,800 ml @ 75 mls/hr TPN CONT 09/13/19 22:00 09/14/19 21:59 09/13/19 22:27 75 MLS/HR Potassium Chloride 75 meq/ Magnesium Sulfate 15 meq/ Multivitamins 10 ml/Chromium/ Copper/Manganese/ Seleni/Zn 0.5 ml/ Insulin Human Regular 15 unit/ Total Parenteral Nutrition/Amino Acids/Dextrose/ Fat Emulsion Intravenous 1,920 ml @ 80 mls/hr TPN CONT 08/27/19 22:00 08/28/19 21:59 DC 08/27/19 22:41 80 MLS/HR Potassium Chloride 75 meq/ Magnesium Sulfate 15 meq/Calcium Gluconate 8 meq/ Multivitamins 10 ml/Chromium/ Copper/Manganese/ Seleni/Zn 0.5 ml/ Insulin Human Regular 15 unit/ Total Parenteral Nutrition/Amino Acids/Dextrose/ Fat Emulsion Intravenous 1,920 ml @ 80 mls/hr TPN CONT 08/25/19 22:00 08/26/19 21:59 DC 08/25/19 22:28 80 MLS/HR Potassium Chloride 75 meq/ Magnesium Sulfate 15 meq/Calcium Gluconate 8 meq/ Multivitamins 10 ml/Chromium/ Copper/Manganese/ Seleni/Zn 0.5 ml/ Insulin Human Regular 20 unit/ Total Parenteral Nutrition/Amino Acids/Dextrose/ Fat Emulsion Intravenous 1,920 ml @ 80 mls/hr TPN CONT 08/24/19 22:00 08/25/19 21:59 DC 08/24/19 22:00 80 MLS/HR Potassium Chloride 75 meq/ Magnesium Sulfate 15 meq/Calcium Gluconate 8 meq/ Multivitamins 10 ml/Chromium/ Copper/Manganese/ Seleni/Zn 0.5 ml/ Insulin Human Regular 25 unit/ Total Parenteral Nutrition/Amino Acids/Dextrose/ Fat Emulsion Intravenous 1,920 ml @ 80 mls/hr TPN CONT 08/22/19 22:00 08/23/19 21:59 DC 08/22/19 23:08 80 MLS/HR Potassium Chloride 75 meq/ Magnesium Sulfate 20 meq/Calcium Gluconate 10 meq/ Multivitamins 10 ml/Chromium/ Copper/Manganese/ Seleni/Zn 0.5 ml/ Insulin Human Regular 25 unit/ Total Parenteral Nutrition/Amino Acids/Dextrose/ Fat Emulsion Intravenous 1,920 ml @ 80 mls/hr TPN CONT 08/21/19 22:00 08/22/19 21:59 DC 08/21/19 22:04 80 MLS/HR Potassium Chloride 75 meq/ Magnesium Sulfate 20 meq/Calcium Gluconate 10 meq/ Multivitamins 10 ml/Chromium/ Copper/Manganese/ Seleni/Zn 0.5 ml/ Insulin Human Regular 30 unit/ Total Parenteral Nutrition/Amino Acids/Dextrose/ Fat Emulsion Intravenous 1,920 ml @ 80 mls/hr TPN CONT 08/20/19 22:00 08/21/19 22:00 DC 08/20/19 21:51 80 MLS/HR Potassium Chloride 80 meq/ Magnesium Sulfate 20 meq/ Multivitamins 10 ml/Chromium/ Copper/Manganese/ Seleni/Zn 0.5 ml/ Insulin Human Regular 15 unit/ Total Parenteral Nutrition/Amino Acids/Dextrose/ Fat Emulsion Intravenous 1,920 ml @ 80 mls/hr TPN CONT 08/30/19 22:00 08/31/19 21:59 DC 08/30/19 21:40 80 MLS/HR Potassium Chloride 80 meq/ Magnesium Sulfate 20 meq/ Multivitamins 10 ml/Chromium/ Copper/Manganese/ Seleni/Zn 1 ml/ Insulin Human Regular 15 unit/ Total Parenteral Nutrition/Amino Acids/Dextrose/ Fat Emulsion Intravenous 1,920 ml @ 80 mls/hr TPN CONT 08/31/19 22:00 09/01/19 21:59 DC 08/31/19 22:04 80 MLS/HR Potassium Chloride 90 meq/ Magnesium Sulfate 20 meq/ Multivitamins 10 ml/Chromium/ Copper/Manganese/ Seleni/Zn 1 ml/ Insulin Human Regular 15 unit/ Total Parenteral Nutrition/Amino Acids/Dextrose/ Fat Emulsion Intravenous 1,800 ml @ 75 mls/hr TPN CONT 09/07/19 22:00 09/08/19 21:59 DC 09/07/19 22:28 75 MLS/HR Potassium Chloride/Water 100 ml @ 100 mls/hr 1X ONCE 09/01/19 11:00 09/01/19 11:59 DC 09/01/19 11:34 100 MLS/HR Potassium Phosphate 20 mmol/ Sodium Chloride 106.6667 ml @ 51.667 m... 1X ONCE 07/13/19 13:00 07/13/19 15:03 DC 07/13/19 12:51 51.667 MLS/HR Potassium Acetate 30 meq/Magnesium Sulfate 20 meq/ Calcium Gluconate 10 meq/ Multivitamins 10 ml/Chromium/ Copper/Manganese/ Seleni/Zn 0.5 ml/ Insulin Human Regular 30 unit/ Potassium Chloride 30 meq/ Total Parenteral Nutrition/Amino Acids/Dextrose/ Fat Emulsion Intravenous 1,920 ml @ 80 mls/hr TPN CONT 08/19/19 22:00 08/20/19 21:59 DC 08/19/19 22:34 80 MLS/HR Potassium Acetate 55 meq/Magnesium Sulfate 20 meq/ Calcium Gluconate 10 meq/ Multivitamins 10 ml/Chromium/ Copper/Manganese/ Seleni/Zn 0.5 ml/ Insulin Human Regular 30 unit/ Total Parenteral Nutrition/Amino Acids/Dextrose/ Fat Emulsion Intravenous 1,920 ml @ 80 mls/hr TPN CONT 08/18/19 22:00 08/19/19 21:59 DC 08/19/19 01:00 80 MLS/HR Potassium Acetate 55 meq/Magnesium Sulfate 20 meq/ Calcium Gluconate 10 meq/ Multivitamins 10 ml/Chromium/ Copper/Manganese/ Seleni/Zn 0.5 ml/ Insulin Human Regular 35 unit/ Total Parenteral Nutrition/Amino Acids/Dextrose/ Fat Emulsion Intravenous 1,920 ml @ 80 mls/hr TPN CONT 08/16/19 22:00 08/17/19 21:59 DC 08/16/19 22:02 80 MLS/HR Potassium Acetate 65 meq/Magnesium Sulfate 20 meq/ Calcium Gluconate 10 meq/ Multivitamins 10 ml/Chromium/ Copper/Manganese/ Seleni/Zn 0.5 ml/ Insulin Human Regular 30 unit/ Total Parenteral Nutrition/Amino Acids/Dextrose/ Fat Emulsion Intravenous 1,920 ml @ 80 mls/hr TPN CONT 08/17/19 22:00 08/18/19 21:59 DC 08/17/19 22:22 80 MLS/HR Prochlorperazine Edisylate (Compazine) 5 mg PACU PRN PRN 08/15/19 07:00 08/16/19 06:59 DC Propofol 20 ml @ As Directed STK-MED ONCE 08/15/19 12:26 08/15/19 12:27 DC Ringer's Solution 1,000 ml @ 30 mls/hr Q24H 08/15/19 07:00 08/15/19 18:59 DC Rocuronium [place] (Zemuron) 50 mg STK-MED ONCE 08/15/19 10:56 08/15/19 10:57 DC Saliva Substitute (Biotene Moisturizing Mouth) 2 spray PRN Q15MIN PRN 09/08/19 11:00 Sevoflurane (Ultane) 60 ml STK-MED ONCE 08/15/19 12:26 08/15/19 12:27 DC Sodium Bicarbonate 50 meq/Sodium Chloride 1,050 ml @ 75 mls/hr Q14H 07/06/19 07:30 07/11/19 10:28 DC 07/10/19 21:10 75 MLS/HR Sodium Acetate 50 meq/Potassium Acetate 55 meq/ Magnesium Sulfate 20 meq/Calcium Gluconate 10 meq/ Multivitamins 10 ml/Chromium/ Copper/Manganese/ Seleni/Zn 0.5 ml/ Insulin Human Regular 35 unit/ Total Parenteral Nutrition/Amino Acids/Dextrose/ Fat Emulsion Intravenous 1,800 ml @ 75 mls/hr TPN CONT 08/13/19 22:00 08/14/19 21:59 DC 08/13/19 22:03 75 MLS/HR Sodium Chloride 1,000 ml @ 25 mls/hr Q24H 08/15/19 14:30 UNV Sodium Chloride (Normal Saline Flush) 3 ml QSHIFT PRN 08/15/19 13:45 Sodium Chloride 90 meq/Calcium Gluconate 10 meq/ Multivitamins 10 ml/Chromium/ Copper/Manganese/ Seleni/Zn 0.5 ml/ Total Parenteral Nutrition/Amino Acids/Dextrose/ Fat Emulsion Intravenous 1,512 ml @ 63 mls/hr TPN CONT 07/06/19 22:00 07/07/19 21:59 DC 07/06/19 22:06 63 MLS/HR Sodium Chloride 90 meq/Calcium Gluconate 10 meq/ Multivitamins 10 ml/Chromium/ Copper/Manganese/ Seleni/Zn 1 ml/ Total Parenteral Nutrition/Amino Acids/Dextrose/ Fat Emulsion Intravenous 55.005 ml @ 2.292 mls/hr TPN CONT 07/06/19 22:00 07/06/19 12:33 DC Sodium Chloride 90 meq/Magnesium Sulfate 10 meq/ Calcium Gluconate 20 meq/ Multivitamins 10 ml/Chromium/ Copper/Manganese/ Seleni/Zn 0.5 ml/ Total Parenteral Nutrition/Amino Acids/Dextrose/ Fat Emulsion Intravenous 1,512 ml @ 63 mls/hr TPN CONT 07/07/19 22:00 07/08/19 21:59 DC 07/07/19 22:25 63 MLS/HR Sodium Chloride 90 meq/Magnesium Sulfate 12 meq/ Calcium Gluconate 15 meq/ Multivitamins 10 ml/Chromium/ Copper/Manganese/ Seleni/Zn 0.5 ml/ Insulin Human Regular 25 unit/ Total Parenteral Nutrition/Amino Acids/Dextrose/ Fat Emulsion Intravenous 1,400 ml @ 58.333 mls/ hr TPN CONT 07/27/19 22:00 07/28/19 21:59 DC 07/27/19 21:41 58.333 MLS/HR Sodium Chloride 90 meq/Potassium Chloride 15 meq/ Magnesium Sulfate 12 meq/Calcium Gluconate 15 meq/ Multivitamins 10 ml/Chromium/ Copper/Manganese/ Seleni/Zn 0.5 ml/ Insulin Human Regular 25 unit/ Total Parenteral Nutrition/Amino Acids/Dextrose/ Fat Emulsion Intravenous 1,400 ml @ 58.333 mls/ hr TPN CONT 07/26/19 22:00 07/27/19 21:59 DC 07/26/19 22:13 58.333 MLS/HR Sodium Chloride 90 meq/Potassium Chloride 15 meq/ Potassium Phosphate 10 mmol/ Magnesium Sulfate 8 meq/Calcium Gluconate 15 meq/ Multivitamins 10 ml/Chromium/ Copper/Manganese/ Seleni/Zn 0.5 ml/ Insulin Human Regular 25 unit/ Total Parenteral Nutrition/Amino Acids/Dextrose/ Fat Emulsion Intravenous 1,400 ml @ 58.333 mls/ hr TPN CONT 07/24/19 22:00 07/25/19 21:59 DC 07/24/19 21:20 58.333 MLS/HR Sodium Chloride 90 meq/Potassium Chloride 15 meq/ Potassium Phosphate 10 mmol/ Magnesium Sulfate 10 meq/Calcium Gluconate 20 meq/ Multivitamins 10 ml/Chromium/ Copper/Manganese/ Seleni/Zn 0.5 ml/ Total Parenteral Nutrition/Amino Acids/Dextrose/ Fat Emulsion Intravenous 1,400 ml @ 58.333 mls/ hr TPN CONT 07/11/19 22:00 07/12/19 21:59 DC 07/11/19 21:42 58.333 MLS/HR Sodium Chloride 90 meq/Potassium Chloride 15 meq/ Potassium Phosphate 10 mmol/ Magnesium Sulfate 12 meq/Calcium Gluconate 15 meq/ Multivitamins 10 ml/Chromium/ Copper/Manganese/ Seleni/Zn 0.5 ml/ Insulin Human Regular 25 unit/ Total Parenteral Nutrition/Amino Acids/Dextrose/ Fat Emulsion Intravenous 1,400 ml @ 58.333 mls/ hr TPN CONT 07/25/19 22:00 07/26/19 21:59 DC 07/25/19 22:24 58.333 MLS/HR Sodium Chloride 90 meq/Potassium Chloride 15 meq/ Potassium Phosphate 15 mmol/ Magnesium Sulfate 10 meq/Calcium Gluconate 15 meq/ Multivitamins 10 ml/Chromium/ Copper/Manganese/ Seleni/Zn 0.5 ml/ Total Parenteral Nutrition/Amino Acids/Dextrose/ Fat Emulsion Intravenous 1,400 ml @ 58.333 mls/ hr TPN CONT 07/12/19 22:00 07/13/19 21:59 DC 07/12/19 22:17 58.333 MLS/HR Sodium Chloride 90 meq/Potassium Chloride 15 meq/ Potassium Phosphate 15 mmol/ Magnesium Sulfate 10 meq/Calcium Gluconate 20 meq/ Multivitamins 10 ml/Chromium/ Copper/Manganese/ Seleni/Zn 0.5 ml/ Total Parenteral Nutrition/Amino Acids/Dextrose/ Fat Emulsion Intravenous 1,200 ml @ 50 mls/hr TPN CONT 07/10/19 22:00 07/10/19 14:17 DC Sodium Chloride 90 meq/Potassium Chloride 15 meq/ Potassium Phosphate 18 mmol/ Magnesium Sulfate 8 meq/Calcium Gluconate 15 meq/ Multivitamins 10 ml/Chromium/ Copper/Manganese/ Seleni/Zn 0.5 ml/ Insulin Human Regular 10 unit/ Total Parenteral Nutrition/Amino Acids/Dextrose/ Fat Emulsion Intravenous 1,400 ml @ 58.333 mls/ hr TPN CONT 07/15/19 22:00 07/16/19 21:59 DC 07/15/19 21:43 58.333 MLS/HR Sodium Chloride 90 meq/Potassium Chloride 15 meq/ Potassium Phosphate 18 mmol/ Magnesium Sulfate 8 meq/Calcium Gluconate 15 meq/ Multivitamins 10 ml/Chromium/ Copper/Manganese/ Seleni/Zn 0.5 ml/ Insulin Human Regular 15 unit/ Total Parenteral Nutrition/Amino Acids/Dextrose/ Fat Emulsion Intravenous 1,400 ml @ 58.333 mls/ hr TPN CONT 07/18/19 22:00 07/19/19 21:59 DC 07/18/19 21:47 58.333 MLS/HR Sodium Chloride 90 meq/Potassium Chloride 15 meq/ Potassium Phosphate 18 mmol/ Magnesium Sulfate 8 meq/Calcium Gluconate 15 meq/ Multivitamins 10 ml/Chromium/ Copper/Manganese/ Seleni/Zn 0.5 ml/ Insulin Human Regular 20 unit/ Total Parenteral Nutrition/Amino Acids/Dextrose/ Fat Emulsion Intravenous 1,400 ml @ 58.333 mls/ hr TPN CONT 07/21/19 22:00 07/22/19 21:59 DC 07/21/19 22:45 58.333 MLS/HR Sodium Chloride 90 meq/Potassium Chloride 15 meq/ Potassium Phosphate 18 mmol/ Magnesium Sulfate 8 meq/Calcium Gluconate 15 meq/ Multivitamins 10 ml/Chromium/ Copper/Manganese/ Seleni/Zn 0.5 ml/ Total Parenteral Nutrition/Amino Acids/Dextrose/ Fat Emulsion Intravenous 1,400 ml @ 58.333 mls/ hr TPN CONT 07/14/19 22:00 07/15/19 21:59 DC 07/14/19 22:00 58.333 MLS/HR Sodium Chloride 90 meq/Potassium Phosphate 15 mmol/ Magnesium Sulfate 12 meq/Calcium Gluconate 15 meq/ Multivitamins 10 ml/Chromium/ Copper/Manganese/ Seleni/Zn 0.5 ml/ Insulin Human Regular 30 unit/ Total Parenteral Nutrition/Amino Acids/Dextrose/ Fat Emulsion Intravenous 1,400 ml @ 58.333 mls/ hr TPN CONT 07/29/19 22:00 07/30/19 21:59 DC 07/29/19 21:49 58.333 MLS/HR Sodium Chloride 90 meq/Potassium Phosphate 15 mmol/ Magnesium Sulfate 12 meq/Calcium Gluconate 15 meq/ Multivitamins 10 ml/Chromium/ Copper/Manganese/ Seleni/Zn 0.5 ml/ Insulin Human Regular 40 unit/ Total Parenteral Nutrition/Amino Acids/Dextrose/ Fat Emulsion Intravenous 1,400 ml @ 58.333 mls/ hr TPN CONT 07/30/19 22:00 07/31/19 21:59 DC 07/30/19 21:21 58.333 MLS/HR Sodium Chloride 90 meq/Potassium Phosphate 19 mmol/ Magnesium Sulfate 12 meq/Calcium Gluconate 15 meq/ Multivitamins 10 ml/Chromium/ Copper/Manganese/ Seleni/Zn 0.5 ml/ Insulin Human Regular 40 unit/ Total Parenteral Nutrition/Amino Acids/Dextrose/ Fat Emulsion Intravenous 1,400 ml @ 58.333 mls/ hr TPN CONT 07/31/19 22:00 08/01/19 21:59 DC 07/31/19 21:54 58.333 MLS/HR Sodium Chloride 90 meq/Potassium Phosphate 5 mmol/ Magnesium Sulfate 12 meq/Calcium Gluconate 15 meq/ Multivitamins 10 ml/Chromium/ Copper/Manganese/ Seleni/Zn 0.5 ml/ Insulin Human Regular 30 unit/ Total Parenteral Nutrition/Amino Acids/Dextrose/ Fat Emulsion Intravenous 1,400 ml @ 58.333 mls/ hr TPN CONT 07/28/19 22:00 07/29/19 21:59 DC 07/28/19 22:08 58.333 MLS/HR Sodium Chloride 100 meq/Potassium Chloride 40 meq/ Magnesium Sulfate 15 meq/Calcium Gluconate 15 meq/ Multivitamins 10 ml/Chromium/ Copper/Manganese/ Seleni/Zn 0.5 ml/ Insulin Human Regular 35 unit/ Total Parenteral Nutrition/Amino Acids/Dextrose/ Fat Emulsion Intravenous 1,400 ml @ 58.333 mls/ hr TPN CONT 08/07/19 22:00 08/08/19 21:59 DC 08/07/19 22:46 58.333 MLS/HR Sodium Chloride 100 meq/Potassium Chloride 40 meq/ Magnesium Sulfate 20 meq/Calcium Gluconate 10 meq/ Multivitamins 10 ml/Chromium/ Copper/Manganese/ Seleni/Zn 0.5 ml/ Insulin Human Regular 35 unit/ Total Parenteral Nutrition/Amino Acids/Dextrose/ Fat Emulsion Intravenous 1,400 ml @ 58.333 mls/ hr TPN CONT 08/11/19 22:00 08/12/19 21:59 DC 08/12/19 00:06 58.333 MLS/HR Sodium Chloride 100 meq/Potassium Chloride 40 meq/ Magnesium Sulfate 20 meq/Calcium Gluconate 15 meq/ Multivitamins 10 ml/Chromium/ Copper/Manganese/ Seleni/Zn 0.5 ml/ Insulin Human Regular 35 unit/ Total Parenteral Nutrition/Amino Acids/Dextrose/ Fat Emulsion Intravenous 1,400 ml @ 58.333 mls/ hr TPN CONT 08/10/19 22:00 08/11/19 21:59 DC 08/10/19 22:27 58.333 MLS/HR Sodium Chloride 100 meq/Potassium Phosphate 10 mmol/ Magnesium Sulfate 12 meq/Calcium Gluconate 15 meq/ Multivitamins 10 ml/Chromium/ Copper/Manganese/ Seleni/Zn 0.5 ml/ Insulin Human Regular 35 unit/ Potassium Chloride 20 meq/ Total Parenteral Nutrition/Amino Acids/Dextrose/ Fat Emulsion Intravenous 1,400 ml @ 58.333 mls/ hr TPN CONT 08/04/19 22:00 08/05/19 21:59 DC 08/04/19 22:10 58.333 MLS/HR Sodium Chloride 100 meq/Potassium Phosphate 19 mmol/ Magnesium Sulfate 12 meq/Calcium Gluconate 15 meq/ Multivitamins 10 ml/Chromium/ Copper/Manganese/ Seleni/Zn 0.5 ml/ Insulin Human Regular 40 unit/ Potassium Chloride 20 meq/ Total Parenteral Nutrition/Amino Acids/Dextrose/ Fat Emulsion Intravenous 1,400 ml @ 58.333 mls/ hr TPN CONT 08/03/19 22:00 08/04/19 21:59 DC 08/03/19 21:20 58.333 MLS/HR Sodium Chloride 100 meq/Potassium Phosphate 5 mmol/ Magnesium Sulfate 12 meq/Calcium Gluconate 15 meq/ Multivitamins 10 ml/Chromium/ Copper/Manganese/ Seleni/Zn 0.5 ml/ Insulin Human Regular 35 unit/ Potassium Chloride 20 meq/ Total Parenteral Nutrition/Amino Acids/Dextrose/ Fat Emulsion Intravenous 1,400 ml @ 58.333 mls/ hr TPN CONT 08/05/19 22:00 08/06/19 21:59 DC 08/05/19 22:59 58.333 MLS/HR Succinylcholine Chloride (Anectine) 120 mg 1X ONCE 07/11/19 08:30 07/11/19 08:31 DC 07/11/19 08:34 120 MG Vecuronium [place] (Norcuron Bolus) 6 mg PRN Q6HRS PRN 08/25/19 19:15 08/25/19 19:35 DC Labs: Lab Laboratory Tests Test 09/13/19 17:52 09/13/19 23:28 09/14/19 06:07 Glucose (Fingerstick) 182 mg/dL (70-99) 161 mg/dL (70-99) 142 mg/dL (70-99) Objective: Assessment: Fever intermittent could be from underlying pancreatitis vs aspiration pneumonia Acute pancreatitis with persistent necrosis CT a/p 07/27 Increased ascites. 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 Leucocytosis JUANA,Hyperkalemia, Metabolic acidosis off dialysis Acute hypoxic resp failure ,bilateral pleural effusion and atelectasis hypocalcemia Prediabetes HTN s/p trach Plan: Plan of Care Change Merrem to Zosyn DC micafungin, 08/21 Off dapto/zyvox/merrem Aggressive pulmonary toilet Maintain aspiration precaution Supportive care Critically ill YUNIOR JONES MD September 14, 2019 08:31
--- NOTE | 2019-09-14 09:35 | PDOC ---
PROGRESS NOTES Chief Complaint Chief Complaint Acute hypoxic Respiratory failure requiring mechanical ventilation (now extubated for several days but still with tracheostomy) Tracheostomy bilateral pleural effusions/pulm edema Sepsis Severe Acute gallstone pancreatitis (not a surgical candidate at this time) with necrosis Acute kidney failure now requiring dialysis Salpingitis Gallstones (Calculus of gallbladder with acute cholecystitis without obstruction) HTN Leukocytosis Hypoxia Uterine fibroid Intractable pain Intractable nausea Covid 19 negative. Acute on chronic anemia EEG: No seizure activityFever - better currently - intermittent could be from underlying pancreatitis blood cults 08/21 - neg so far ? Ileus with vomiting Abd distention - U/S and CT reviewed s/p 0.4 L of opaque, debris-containing ascites was removed 08/23 Acute pancreatitis with persistent necrosis - 08/14 status post KAYLIN drain placement + C paropsilosis. s/p additional drains 08/25 Anemia - S/p PRBCs Cholelithiasis with thickening of the gallbladder wall. Leucocytosis improving JUANA, hyperkalemia, Metabolic acidosis off dialysis Acute hypoxic resp failure ,bilateral pleural effusion and atelectasis hypocalcemia Prediabetes HTN s/p trach ESRD on HD Hyperglycemia History of Present Illness History of Present Illness Seen bedside. Hb 8. She was just a bit hypoxic, had a mucous plug suctioned. Able to vocalize well with speaking valve, tells me we are being very hard on her and she would like to be drugged back to sleep. She wants to wake up and feel better. On trach shield, T max 100.4. afebrile this a.m. 09/13/2019 Patient seen and examined in the ICU She is up in the chair very frail trying to talk a little shaky Discussed with RN Chart reviewed 09/12/2019 Patient seen and examined in the ICU Patient up in the chair Having a severe coughing episode with a lot of phlegm coming out of her tracheostomy Discussed with RN Discussed with physical therapy Chart reviewed 09/10,. feels well, has been out of room in wheelchair no complaint, still weak, some with not wanting to wear her valve on trach cont other, may be able to work with speech tomorrow, erumwalleanna OK to try, 09/09, anxiety is up today, she dislikes the valve still, shower and outside today . 09/08 she doesnt want to wear her passy-fantasma valve, discussed str and plan with her. speech following, needs swallow study, but needs to wear her valve longer, cont current able to walk some, walker 09/07 stronger, better, we discussed better oral care she would like to try swallow study, wants to try to eat, speech is following 09/07/2019 She remains in the ICU sitting up and working with OT, getting better if limit pain meds, may do better off the vent, Nurses trying to suction her, that is also improved, Chart reviewed 09/06/2019 Patient seen and examined in the ICU She had an episode yesterday of tachycardia and severe agitation we gave her some Ativan After that she seemed to have stroke symptoms but now that the Ativan has wore off her stroke symptoms have resolved She is on IV meropenem and daptomycin and micafungin Chart reviewed Discussed with RN Patient is still critically ill BRIEF OPERATIVE NOTE Pre-Op Diagnosis Pancreatitis with pseudocysts, suspected infection Post-Op Diagnosis same Procedure Performed CT abdominal Drains x 3 Surgeon Tesfaye Anesthesia Type: Conscious Sedation Findings 3 abdominal drains, 14F, with turbid pancreatic fluid and necrotic debris in each. Complications No immediate 08/26: Patient today somewhat restless and having bilious secretions from ET tube, imaging studies ordered, discussed with net developer consultant. Pretty poor prognosis, hopefully is not a fistula, poor surgical candidate. 08/27: Imaging with no acute events, she seems more stable today compared to yesterday. Encouraged as much activity as possible patient at high risk for severe depression. Vitals Vitals Vital Signs Date Time Temp Pulse Resp B/P (MAP) Pulse Ox O2 Delivery O2 Flow Rate FiO2 09/14/19 09:00 136 26 122/70 (87) 96 Room Air 09/14/19 08:12 98.7 98.7 09/14/19 04:00 Physical Exam Physical Exam GENERAL: Just got up in the chair having a lot of coughing HEENT: Oral cavity clear, NGT NECK: Trach shield LUNGS: A lot of coughing with productive sputum from the tracheostomy site HEART: S1, S2, regular ABDOMEN: mod distention, hypoactive BS, tender, + drains x 3 : Lind (08/01) EXTREMITIES: Generalized edema, improving, no cyanosis, SCDs bilaterally SKIN: Warm and dry. No generalized rash. TELEPHONE CLEANER: Very weak RUE-PICC (08/17) clean General: Alert Heart: Regular rate, Normal S1, Normal S2, No murmurs, Gallops Lungs: Other (Good air movement but having a lot of productive sputum from her tracheostomy site) Abdomen: Soft Extremities: No clubbing, No cyanosis, No edema, Normal pulses, No tendernes s/swelling Skin: Other (warm, dry) Labs LABS Laboratory Tests Test 09/13/19 17:52 09/13/19 23:28 09/14/19 06:07 Glucose (Fingerstick) 182 mg/dL (70-99) 161 mg/dL (70-99) 142 mg/dL (70-99) Assessment and Plan Assessmemt and Plan Problems Medical Problems: (1) Acute pancreatitis Status: Acute (2) Cholelithiasis Status: Acute Comment Review of Relevant I have reviewed the following items kolby (where applicable) has been applied. Labs Laboratory Tests Test 09/12/19 17:46 09/12/19 23:55 09/13/19 05:45 09/13/19 06:00 Glucose (Fingerstick) 173 mg/dL (70-99) 166 mg/dL (70-99) 170 mg/dL (70-99) White Blood Count 11.4 x10^3/uL (4.0-11.0) Red Blood Count 2.80 x10^6/uL (3.50-5.40) Hemoglobin 8.0 g/dL (12.0-15.5) Hematocrit 24.4 % (36.0-47.0) Mean Corpuscular Volume 87 fL (79-100) Mean Corpuscular Hemoglobin 28 pg (25-35) Mean Corpuscular Hemoglobin Concent 33 g/dL (31-37) Red Cell Distribution Width 19.5 % (11.5-14.5) Platelet Count 325 x10^3/uL (140-400) Neutrophils (%) (Auto) 72 % (31-73) Lymphocytes (%) (Auto) 17 % (24-48) Monocytes (%) (Auto) 9 % (0-9) Eosinophils (%) (Auto) 2 % (0-3) Basophils (%) (Auto) 0 % (0-3) Neutrophils # (Auto) 8.2 x10^3/uL (1.8-7.7) Lymphocytes # (Auto) 2.0 x10^3/uL (1.0-4.8) Monocytes # (Auto) 1.0 x10^3/uL (0.0-1.1) Eosinophils # (Auto) 0.2 x10^3/uL (0.0-0.7) Basophils # (Auto) 0.0 x10^3/uL (0.0-0.2) Sodium Level 134 mmol/L (136-145) Potassium Level 4.6 mmol/L (3.5-5.1) Chloride Level 97 mmol/L (98-107) Carbon Dioxide Level 33 mmol/L (21-32) Anion Gap 4 (6-14) Blood Urea Nitrogen 28 mg/dL (7-20) Creatinine 0.9 mg/dL (0.6-1.0) Estimated GFR (Cockcroft-Gault) 66.5 Glucose Level 183 mg/dL (70-99) Calcium Level 10.0 mg/dL (8.5-10.1) Test 09/13/19 17:52 09/13/19 23:28 09/14/19 06:07 Glucose (Fingerstick) 182 mg/dL (70-99) 161 mg/dL (70-99) 142 mg/dL (70-99) Laboratory Tests Test 09/13/19 17:52 09/13/19 23:28 09/14/19 06:07 Glucose (Fingerstick) 182 mg/dL (70-99) 161 mg/dL (70-99) 142 mg/dL (70-99) Microbiology 09/04/19 Blood Culture - Final, Complete NO GROWTH AFTER 5 DAYS 08/24/19 Fungal Culture - Final, Complete 08/24/19 Fungal Culture Result 1 - Final, Complete 08/18/19 Aerobic Culture - Final, Complete 08/18/19 Aerobic Culture Result 1 (ALEXANDRA) - Final, Complete 08/18/19 Gram Stain - Final, Complete 08/18/19 Gram Stain Result 1 (ALEXANDRA) - Final, Complete 08/18/19 Gram Stain Result 2 (ALEXANDRA) - Final, Complete 07/31/19 Urine Culture - Final, Complete 07/31/19 Urine Culture Result 1 (ALEXANDRA) - Final, Complete Medications Current Medications Sodium Chloride 1,000 ml @ 1,000 mls/hr Q1H IV Last administered on 07/04/19at 03:00; Start 07/04/19 at 03:00; Stop 07/04/19 at 03:59; Status DC Ondansetron HCl (Zofran) 4 mg 1X ONCE IVP Last administered on 07/04/19at 03:27; Start 07/04/19 at 03:00; Stop 07/04/19 at 03:01; Status DC Morphine Sulfate (Morphine Sulfate) 4 mg 1X ONCE IV ; Start 07/04/19 at 03:00; Stop 07/04/19 at 03:01; Status Cancel Ketorolac Tromethamine (Toradol 30mg Vial) 30 mg 1X ONCE IV Last administered on 07/04/19at 02:54; Start 07/04/19 at 03:00; Stop 07/04/19 at 03:01; Status DC Fentanyl Citrate (Fentanyl 2ml Vial) 25 mcg 1X ONCE IVP Last administered on 07/04/19at 03:23; Start 07/04/19 at 03:30; Stop 07/04/19 at 03:31; Status DC Fentanyl Citrate (Fentanyl 2ml Vial) 100 mcg STK-MED ONCE .ROUTE ; Start 07/04/19 at 03:18; Stop 07/04/19 at 03:18; Status DC Iohexol (Omnipaque 350 Mg/ml) 90 ml 1X ONCE IV Last administered on 07/04/19at 03:25; Start 07/04/19 at 03:30; Stop 07/04/19 at 03:31; Status DC Info (CONTRAST GIVEN -- Rx MONITORING) 1 each PRN DAILY PRN MC SEE COMMENTS; Start 07/04/19 at 03:30; Stop 07/06/19 at 03:29; Status DC Hydromorphone HCl (Dilaudid) 0.5 mg 1X ONCE IV Last administered on 07/04/19at 03:55; Start 07/04/19 at 04:30; Stop 07/04/19 at 04:32; Status DC Ondansetron HCl (Zofran) 4 mg PRN Q8HRS PRN IV NAUSEA/VOMITING 1ST CHOICE; Start 07/04/19 at 05:00; Stop 07/04/19 at 09:27; Status DC Morphine Sulfate (Morphine Sulfate) 2 mg PRN Q2HR PRN IV SEVERE PAIN 7-10 Last administered on 07/05/19at 12:26; Start 07/04/19 at 05:00; Stop 07/05/19 at 14:15; Status DC Sodium Chloride 1,000 ml @ 125 mls/hr Q8H IV Last administered on 07/04/19at 20:56; Start 07/04/19 at 05:00; Stop 07/05/19 at 04:59; Status DC Hydromorphone HCl (Dilaudid) 0.5 mg PRN Q3HRS PRN IV SEVERE PAIN 7-10 Last administered on 07/05/19at 10:06; Start 07/04/19 at 05:00; Stop 07/05/19 at 12:01; Status DC Piperacillin Sod/ Tazobactam Sod 4.5 gm/Sodium Chloride 100 ml @ 200 mls/hr 1X ONCE IV Last administered on 07/04/19at 05:44; Start 07/04/19 at 06:00; Stop 07/04/19 at 06:29; Status DC Ondansetron HCl (Zofran) 4 mg PRN Q4HRS PRN IV NAUSEA/VOMITING 1ST CHOICE Last administered on 09/13/19at 09:51; Start 07/04/19 at 09:30 Insulin Human Lispro (HumaLOG) 0-9 UNITS Q6HRS SQ Last administered on 09/13/19at 23:30; Start 07/04/19 at 09:30 Dextrose (Dextrose 50%-Water Syringe) 12.5 gm PRN Q15MIN PRN IV SEE COMMENTS; Start 07/04/19 at 09:30 Pantoprazole Sodium (PROTONIX VIAL for IV PUSH) 40 mg DAILYAC IVP Last administered on 09/14/19at 08:16; Start 07/04/19 at 11:30 Prochlorperazine Edisylate (Compazine) 10 mg PRN Q6HRS PRN IV NAUSEA/VOMITING, 2nd CHOICE Last administered on 09/13/19at 21:22; Start 07/04/19 at 17:45 Atenolol (Tenormin) 100 mg DAILY PO ; Start 07/05/19 at 09:00; Stop 07/04/19 at 20:08; Status DC Metoprolol Tartrate (Lopressor Vial) 2.5 mg Q6HRS IVP Last administered on 07/05/19at 05:51; Start 07/04/19 at 20:15; Stop 07/05/19 at 10:02; Status DC Metoprolol Tartrate (Lopressor Vial) 5 mg Q6HRS IVP Last administered on 07/14/19at 00:12; Start 07/05/19 at 10:15; Stop 07/16/19 at 08:48; Status DC Hydromorphone HCl (Dilaudid) 1 mg PRN Q3HRS PRN IV SEVERE PAIN 7-10 Last administered on 07/11/19at 05:13; Start 07/05/19 at 12:00; Stop 07/19/19 at 00:25; Status DC Lidocaine HCl (Buffered Lidocaine 1%) 3 ml STK-MED ONCE .ROUTE ; Start 07/05/19 at 12:55; Stop 07/05/19 at 12:56; Status DC Albumin Human 500 ml @ 125 mls/hr 1X ONCE IV Last administered on 07/05/19at 14:33; Start 07/05/19 at 14:30; Stop 07/05/19 at 18:32; Status DC Norepinephrine Bitartrate 8 mg/ Dextrose 258 ml @ 17.299 mls/ hr CONT PRN IV PER PROTOCOL Last administered on 08/02/19at 12:48; Start 07/05/19 at 15:30; Stop 08/05/19 at 09:19; Status DC Sodium Chloride 1,000 ml @ 125 mls/hr Q8H IV Last administered on 07/05/19at 21:04; Start 07/05/19 at 16:00; Stop 07/06/19 at 02:42; Status DC Albumin Human 500 ml @ 125 mls/hr PRN BID PRN IV After every 2L NSS & BP < 90mm Last administered on 07/20/19at 14:21; Start 07/05/19 at 16:00 Iohexol (Omnipaque 300 Mg/ml) 60 ml 1X ONCE IV Last administered on 07/05/19at 17:20; Start 07/05/19 at 17:00; Stop 07/05/19 at 17:01; Status DC Info (CONTRAST GIVEN -- Rx MONITORING) 1 each PRN DAILY PRN MC SEE COMMENTS; Start 07/05/19 at 17:00; Stop 07/07/19 at 16:59; Status DC Meropenem 1 gm/ Sodium Chloride 100 ml @ 200 mls/hr Q8HRS IV Last administered on 07/06/19at 05:45; Start 07/05/19 at 20:00; Stop 07/06/19 at 08:48; Status DC Furosemide (Lasix) 40 mg 1X ONCE IVP Last administered on 07/05/19at 22:12; Start 07/05/19 at 22:30; Stop 07/05/19 at 22:31; Status DC Calcium Chloride 1000 mg/Sodium Chloride 110 ml @ 220 mls/hr 1X ONCE IV Last administered on 07/05/19at 22:11; Start 07/05/19 at 22:30; Stop 07/05/19 at 22:59; Status DC Albuterol Sulfate (Ventolin Neb Soln) 2.5 mg 1X ONCE NEB Last administered on 07/06/19at 00:56; Start 07/05/19 at 22:30; Stop 07/05/19 at 22:31; Status DC Insulin Human Regular (HumuLIN R VIAL) 5 unit 1X ONCE IV Last administered on 07/05/19at 22:14; Start 07/05/19 at 22:30; Stop 07/05/19 at 22:31; Status DC Magnesium Sulfate 50 ml @ 25 mls/hr 1X ONCE IV Last administered on 07/06/19at 02:57; Start 07/06/19 at 03:00; Stop 07/06/19 at 04:59; Status DC Calcium Gluconate 1000 mg/Sodium Chloride 110 ml @ 220 mls/hr 1X ONCE IV Last administered on 07/06/19at 02:46; Start 07/06/19 at 03:00; Stop 07/06/19 at 03:29; Status DC Sodium Chloride 1,000 ml @ 200 mls/hr Q5H IV Last administered on 07/06/19at 02:46; Start 07/06/19 at 03:00; Stop 07/06/19 at 10:21; Status DC Calcium Gluconate 1000 mg/Sodium Chloride 110 ml @ 220 mls/hr 1X ONCE IV Last administered on 07/06/19at 03:21; Start 07/06/19 at 03:30; Stop 07/06/19 at 03:59; Status DC Sodium Bicarbonate 50 meq/Sodium Chloride 1,050 ml @ 75 mls/hr Q14H IV Last administered on 07/10/19at 21:10; Start 07/06/19 at 07:30; Stop 07/11/19 at 10:28; Status DC Calcium Gluconate 2000 mg/Sodium Chloride 120 ml @ 220 mls/hr 1X ONCE IV Last administered on 07/06/19at 09:05; Start 07/06/19 at 07:30; Stop 07/06/19 at 08:02; Status DC Lidocaine HCl (Xylocaine-Mpf 1% 2ml Vial) 2 ml STK-MED ONCE .ROUTE ; Start 07/06/19 at 08:47; Stop 07/06/19 at 08:47; Status DC Meropenem 500 mg/ Sodium Chloride 50 ml @ 100 mls/hr Q12HR IV Last administered on 07/11/19at 21:01; Start 07/06/19 at 18:00; Stop 07/12/19 at 07:58; Status DC Lidocaine HCl (Buffered Lidocaine 1%) 3 ml STK-MED ONCE .ROUTE ; Start 07/06/19 at 09:46; Stop 07/06/19 at 09:46; Status DC Lidocaine HCl (Buffered Lidocaine 1%) 6 ml 1X ONCE INJ Last administered on 07/06/19at 10:26; Start 07/06/19 at 10:15; Stop 07/06/19 at 10:16; Status DC Info (Tpn Per Pharmacy) 1 each PRN DAILY PRN MC SEE COMMENTS Last administered on 09/13/19at 14:27; Start 07/06/19 at 12:00 Sodium Chloride 1,000 ml @ 1,000 mls/hr Q1H PRN IV hypotension; Start 07/06/19 at 12:07; Stop 07/06/19 at 18:06; Status DC Diphenhydramine HCl (Benadryl) 25 mg 1X PRN PRN IV ITCHING; Start 07/06/19 at 12:15; Stop 07/07/19 at 12:14; Status DC Diphenhydramine HCl (Benadryl) 25 mg 1X PRN PRN IV ITCHING; Start 07/06/19 at 12:15; Stop 07/07/19 at 12:14; Status DC Sodium Chloride 1,000 ml @ 400 mls/hr Q2H30M PRN IV PATENCY; Start 07/06/19 at 12:07; Stop 07/07/19 at 00:06; Status DC Info (PHARMACY MONITORING -- do not chart) 1 each PRN DAILY PRN MC SEE COMM ENTS; Start 07/06/19 at 12:15; Stop 07/08/19 at 08:13; Status DC Sodium Chloride 90 meq/Calcium Gluconate 10 meq/ Multivitamins 10 ml/Chromium/ Copper/Manganese/ Seleni/Zn 1 ml/ Total Parenteral Nutrition/Amino Acids/Dextrose/ Fat Emulsion Intravenous 55.005 ml @ 2.292 mls/hr TPN CONT IV ; Start 07/06/19 at 22:00; Stop 07/06/19 at 12:33; Status DC Info (Tpn Per Pharmacy) 1 each PRN DAILY PRN MC SEE COMMENTS; Start 07/06/19 at 12:30; Status UNV Sodium Chloride 90 meq/Calcium Gluconate 10 meq/ Multivitamins 10 ml/Chromium/ Copper/Manganese/ Seleni/Zn 0.5 ml/ Total Parenteral Nutrition/Amino Acids/Dextrose/ Fat Emulsion Intravenous 1,512 ml @ 63 mls/hr TPN CONT IV Last administered on 07/06/19at 22:06; Start 07/06/19 at 22:00; Stop 07/07/19 at 21:59; Status DC Calcium Carbonate/ Glycine (Tums) 500 mg PRN AFTMEALHC PRN PO INDIGESTION; Start 07/06/19 at 17:45; Stop 08/31/19 at 10:25; Status DC Calcium Gluconate (Calcium Gluconate) 2,000 mg 1X ONCE IVP Last administered on 07/07/19at 02:19; Start 07/07/19 at 02:15; Stop 07/07/19 at 02:16; Status DC Calcium Chloride 3000 mg/Sodium Chloride 1,030 ml @ 50 mls/hr [id number] IV Last administered on 07/09/19at 02:17; Start 07/07/19 at 08:00; Stop 07/09/19 at 15:23; Status DC Lorazepam (Ativan Inj) 1 mg PRN Q4HRS PRN IVP ANXIETY / AGITATION, 2nd choic Last administered on 08/05/19at 03:51; Start 07/07/19 at 09:00; Stop 08/05/19 at 09:19; Status DC Sodium Chloride 1,000 ml @ 1,000 mls/hr Q1H PRN IV hypotension; Start 07/07/19 at 08:56; Stop 07/07/19 at 14:55; Status DC Albumin Human 200 ml @ 200 mls/hr 1X PRN PRN IV Hypotension; Start 07/07/19 at 09:00; Stop 07/07/19 at 14:59; Status DC Diphenhydramine HCl (Benadryl) 25 mg 1X PRN PRN IV ITCHING; Start 07/07/19 at 09:00; Stop 07/08/19 at 08:59; Status DC Diphenhydramine HCl (Benadryl) 25 mg 1X PRN PRN IV ITCHING; Start 07/07/19 at 09:00; Stop 07/08/19 at 08:59; Status DC Sodium Chloride 1,000 ml @ 400 mls/hr Q2H30M PRN IV PATENCY; Start 07/07/19 at 08:56; Stop 07/07/19 at 20:55; Status DC Info (PHARMACY MONITORING -- do not chart) 1 each PRN DAILY PRN MC SEE COMMENTS; Start 07/07/19 at 09:00; Status UNV Info (PHARMACY MONITORING -- do not chart) 1 each PRN DAILY PRN MC SEE COMMENTS; Start 07/07/19 at 09:00; Stop 07/08/19 at 08:13; Status DC Digoxin (Lanoxin) 500 mcg 1X ONCE IV Last administered on 07/07/19at 10:04; Start 07/07/19 at 10:00; Stop 07/07/19 at 10:01; Status DC Digoxin (Lanoxin) 125 mcg 1X ONCE IV Last administered on 07/07/19at 17:10; Start 07/07/19 at 18:00; Stop 07/07/19 at 18:01; Status DC Magnesium Sulfate 100 ml @ 25 mls/hr 1X ONCE IV Last administered on 07/07/19at 12:48; Start 07/07/19 at 13:00; Stop 07/07/19 at 16:59; Status DC Sodium Chloride 90 meq/Magnesium Sulfate 10 meq/ Calcium Gluconate 20 meq/ Multivitamins 10 ml/Chromium/ Copper/Manganese/ Seleni/Zn 0.5 ml/ Total Parenteral Nutrition/Amino Acids/Dextrose/ Fat Emulsion Intravenous 1,512 ml @ 63 mls/hr TPN CONT IV Last administered on 07/07/19at 22:25; Start 07/07/19 at 22:00; Stop 07/08/19 at 21:59; Status DC Sodium Chloride 1,000 ml @ 1,000 mls/hr Q1H PRN IV hypotension; Start 07/08/19 at 08:05; Stop 07/08/19 at 14:04; Status DC Albumin Human 200 ml @ 200 mls/hr 1X ONCE IV Last administered on 07/08/19at 08:57; Start 07/08/19 at 08:15; Stop 07/08/19 at 09:14; Status DC Diphenhydramine HCl (Benadryl) 25 mg 1X PRN PRN IV ITCHING; Start 07/08/19 at 08:15; Stop 07/09/19 at 08:14; Status DC Diphenhydramine HCl (Benadryl) 25 mg 1X PRN PRN IV ITCHING; Start 07/08/19 at 08:15; Stop 07/09/19 at 08:14; Status DC Sodium Chloride 1,000 ml @ 400 mls/hr Q2H30M PRN IV PATENCY; Start 07/08/19 at 08:05; Stop 07/08/19 at 20:04; Status DC Info (PHARMACY MONITORING -- do not chart) 1 each PRN DAILY PRN MC SEE COMMENTS; Start 07/08/19 at 08:15; Stop 07/12/19 at 07:57; Status DC Sodium Chloride 90 meq/Potassium Chloride 15 meq/ Potassium Phosphate 10 mmol/ Magnesium Sulfate 10 meq/Calcium Gluconate 20 meq/ Multivitamins 10 ml/Chromium/ Copper/Manganese/ Seleni/Zn 0.5 ml/ Total Parenteral Nutrition/Amino Acids/Dextrose/ Fat Emulsion Intravenous 1,512 ml @ 63 mls/hr TPN CONT IV Last administered on 07/08/19at 21:01; Start 07/08/19 at 22:00; Stop 07/09/19 at 21:59; Status DC Potassium Chloride/Water 100 ml @ 100 mls/hr 1X ONCE IV Last administered on 07/08/19at 14:09; Start 07/08/19 at 14:00; Stop 07/08/19 at 14:59; Status DC Benzocaine (Hurricaine One) 1 spray 1X ONCE MM Last administered on 07/08/19at 16:38; Start 07/08/19 at 14:30; Stop 07/08/19 at 14:31; Status DC Lidocaine HCl (Glydo (Lidocaine) Jelly) 1 ramu 1X ONCE MM Last administered on 07/08/19at 16:38; Start 07/08/19 at 14:30; Stop 07/08/19 at 14:31; Status DC Linezolid/Dextrose 300 ml @ 300 mls/hr Q12HR IV Last administered on 07/14/19at 21:04; Start 07/08/19 at 20:00; Stop 07/15/19 at 07:50; Status DC Acetaminophen (Tylenol) 650 mg PRN Q6HRS PRN PO MILD PAIN / TEMP; Start 07/09/19 at 03:30; Stop 07/09/19 at 03:36; Status DC Acetaminophen (Tylenol) 650 mg PRN Q6HRS PRN PEG MILD PAIN / TEMP Last administered on 08/04/19at 19:56; Start 07/09/19 at 03:36; Stop 08/31/19 at 10:25; Status DC Sodium Chloride 1,000 ml @ 1,000 mls/hr Q1H PRN IV hypotension; Start 07/09/19 at 07:50; Stop 07/09/19 at 13:49; Status DC Albumin Human 200 ml @ 200 mls/hr 1X PRN PRN IV Hypotension; Start 07/09/19 at 08:00; Stop 07/09/19 at 13:59; Status DC Sodium Chloride (Normal Saline Flush) 10 ml 1X PRN PRN IV AP catheter pack; Start 07/09/19 at 08:00; Stop 07/10/19 at 07:59; Status DC Sodium Chloride (Normal Saline Flush) 10 ml 1X PRN PRN IV TALENT DEVELOPMENT CONSULTANT catheter pack; Start 07/09/19 at 08:00; Stop 07/10/19 at 07:59; Status DC Sodium Chloride 1,000 ml @ 400 mls/hr Q2H30M PRN IV PATENCY; Start 07/09/19 at 07:50; Stop 07/09/19 at 19:49; Status DC Info (PHARMACY MONITORING -- do not chart) 1 each PRN DAILY PRN MC SEE COMMENTS; Start 07/09/19 at 08:00; Status UNV Info (PHARMACY MONITORING -- do not chart) 1 each PRN DAILY PRN MC SEE COMMENTS; Start 07/09/19 at 08:00; Stop 07/11/19 at 08:25; Status DC Sodium Chloride 90 meq/Potassium Chloride 15 meq/ Potassium Phosphate 10 mmol/ Magnesium Sulfate 10 meq/Calcium Gluconate 20 meq/ Multivitamins 10 ml/Chromium/ Copper/Manganese/ Seleni/Zn 0.5 ml/ Total Parenteral Nutrition/Amino Acids/Dextrose/ Fat Emulsion Intravenous 1,512 ml @ 63 mls/hr TPN CONT IV Last administered on 07/09/19at 20:57; Start 07/09/19 at 22:00; Stop 07/10/19 at 21:59; Status DC Sodium Chloride 90 meq/Potassium Chloride 15 meq/ Potassium Phosphate 15 mmol/ Magnesium Sulfate 10 meq/Calcium Gluconate 20 meq/ Multivitamins 10 ml/Chromium/ Copper/Manganese/ Seleni/Zn 0.5 ml/ Total Parenteral Nutrition/Amino Acids/Dextrose/ Fat Emulsion Intravenous 1,512 ml @ 63 mls/hr TPN CONT IV ; Start 07/10/19 at 22:00; Stop 07/10/19 at 14:16; Status DC Sodium Chloride 90 meq/Potassium Chloride 15 meq/ Potassium Phosphate 15 mmol/ Magnesium Sulfate 10 meq/Calcium Gluconate 20 meq/ Multivitamins 10 ml/Chromium/ Copper/Manganese/ Seleni/Zn 0.5 ml/ Total Parenteral Nutrition/Amino Acids/Dextrose/ Fat Emulsion Intravenous 1,200 ml @ 50 mls/hr TPN CONT IV ; Start 07/10/19 at 22:00; Stop 07/10/19 at 14:17; Status DC Sodium Chloride 90 meq/Potassium Chloride 15 meq/ Potassium Phosphate 10 mmol/ Magnesium Sulfate 10 meq/Calcium Gluconate 20 meq/ Multivitamins 10 ml/Chromium/ Copper/Manganese/ Seleni/Zn 0.5 ml/ Total Parenteral Nutrition/Amino Acid s/Dextrose/ Fat Emulsion Intravenous 1,200 ml @ 50 mls/hr TPN CONT IV Last administered on 07/10/19at 23:29; Start 07/10/19 at 22:00; Stop 07/11/19 at 21:59; Status DC Sodium Chloride 1,000 ml @ 1,000 mls/hr Q1H PRN IV hypotension; Start 07/11/19 at 07:28; Stop 07/11/19 at 13:27; Status DC Albumin Human 200 ml @ 200 mls/hr 1X ONCE IV Last administered on 07/11/19at 08:51; Start 07/11/19 at 07:30; Stop 07/11/19 at 08:29; Status DC Diphenhydramine HCl (Benadryl) 25 mg 1X PRN PRN IV ITCHING; Start 07/11/19 at 07:30; Stop 07/12/19 at 07:29; Status DC Diphenhydramine HCl (Benadryl) 25 mg 1X PRN PRN IV ITCHING; Start 07/11/19 at 07:30; Stop 07/12/19 at 07:29; Status DC Sodium Chloride 1,000 ml @ 400 mls/hr Q2H30M PRN IV PATENCY; Start 07/11/19 at 07:28; Stop 07/11/19 at 19:27; Status DC Info (PHARMACY MONITORING -- do not chart) 1 each PRN DAILY PRN MC SEE COMMENTS; Start 07/11/19 at 07:30; Stop 07/22/19 at 13:01; Status DC Metronidazole 100 ml @ 100 mls/hr Q6HRS IV Last administered on 07/27/19at 06 :26; Start 07/11/19 at 08:30; Stop 07/27/19 at 09:58; Status DC Micafungin Sodium 100 mg/Dextrose 100 ml @ 100 mls/hr Q24H IV Last administered on 08/18/19at 08:18; Start 07/11/19 at 09:00; Stop 08/18/19 at 20:58; Status DC Propofol 0 ml @ As Directed STK-MED ONCE IV ; Start 07/11/19 at 07:53; Stop 07/11/19 at 07:53; Status DC Etomidate (Amidate) 20 mg STK-MED ONCE IV ; Start 07/11/19 at 07:53; Stop 07/11/19 at 07:54; Status DC Midazolam HCl (Versed) 5 mg STK-MED ONCE .ROUTE ; Start 07/11/19 at 07:57; Stop 07/11/19 at 07:57; Status DC Fentanyl Citrate 30 ml @ 0 mls/hr CONT PRN IV SEE PROTOCOL Last administered on 08/05/19at 06:12; Start 07/11/19 at 08:15; Stop 08/05/19 at 09:19; Status DC Artificial Tears (Artificial Tears) 1 drop PRN Q1HR PRN OU DRY EYE, 1st choice; Start 07/11/19 at 08:15; Stop 08/17/19 at 05:31; Status DC Midazolam HCl 50 mg/Sodium Chloride 50 ml @ 0 mls/hr CONT PRN IV SEE PROTOCOL Last administered on 07/14/19at 22:39; Start 07/11/19 at 08:15; Stop 07/16/19 at 15:59; Status DC Etomidate (Amidate) 8 mg 1X ONCE IV Last administered on 07/11/19at 08:33; Start 07/11/19 at 08:30; Stop 07/11/19 at 08:31; Status DC Succinylcholine Chloride (Anectine) 120 mg 1X ONCE IV Last administered on 07/11/19at 08:34; Start 07/11/19 at 08:30; Stop 07/11/19 at 08:31; Status DC Midazolam HCl (Versed) 5 mg 1X ONCE IV ; Start 07/11/19 at 08:30; Stop 07/11/19 at 08:31; Status DC Potassium Chloride 15 meq/ Bicarbonate Dialysis Soln w/ out KCl 5,007.5 ml @ 1,000 mls/ hr Q5H1M IV Last administered on 07/12/19at 11:11; Start 07/11/19 at 12:00; Stop 07/12/19 at 11:15; Status DC Potassium Chloride 15 meq/ Bicarbonate Dialysis Soln w/ out KCl 5,007.5 ml @ 1,000 mls/ hr Q5H1M IV Last administered on 07/12/19at 11:12; Start 07/11/19 at 12:00; Stop 07/12/19 at 11:17; Status DC Potassium Chloride 15 meq/ Bicarbonate Dialysis Soln w/ out KCl 5,007.5 ml @ 1,000 mls/ hr Q5H1M IV Last administered on 07/12/19at 11:11; Start 07/11/19 at 12:00; Stop 07/12/19 at 11:19; Status DC Sodium Chloride 90 meq/Potassium Chloride 15 meq/ Potassium Phosphate 10 mmol/ Magnesium Sulfate 10 meq/Calcium Gluconate 20 meq/ Multivitamins 10 ml/Chromium/ Copper/Manganese/ Seleni/Zn 0.5 ml/ Total Parenteral Nutrition/Amino Acids/Dextrose/ Fat Emulsion Intravenous 1,400 ml @ 58.333 mls/ hr TPN CONT IV Last administered on 07/11/19at 21:42; Start 07/11/19 at 22:00; Stop 07/12/19 at 21:59; Status DC Heparin Sodium (Porcine) (Heparin Sodium) 5,000 unit Q8HRS SQ Last administered on 07/16/19at 05:55; Start 07/11/19 at 15:00; Stop 07/16/19 at 13:28; Status DC Meropenem 500 mg/ Sodium Chloride 50 ml @ 100 mls/hr Q6HRS IV Last administered on 07/13/19at 06:00; Start 07/12/19 at 09:00; Stop 07/13/19 at 07:29; Status DC Potassium Phosphate 20 mmol/ Sodium Chloride 106.6667 ml @ 51.667 m... 1X ONCE IV Last administered on 07/12/19at 11:22; Start 07/12/19 at 10:15; Stop 07/12/19 at 12:18; Status DC Acetaminophen (Tylenol Supp) 650 mg PRN Q6HRS PRN [place] MILD PAIN / TEMP > 100.3'F Last administered on 08/23/19at 09:12; Start 07/12/19 at 10:30 Potassium Chloride/Water 100 ml @ 100 mls/hr Q1H IV Last administered on 07/12/19at 12:12; Start 07/12/19 at 11:00; Stop 07/12/19 at 12:59; Status DC Potassium Chloride 20 meq/ Bicarbonate Dialysis Soln w/ out KCl 5,010 ml @ 1,000 mls/hr Q5H1M IV Last administered on 07/13/19at 08:48; Start 07/12/19 at 12:00; Stop 07/13/19 at 13:03; Status DC Potassium Chloride 20 meq/ Bicarbonate Dialysis Soln w/ out KCl 5,010 ml @ 1,000 mls/hr Q5H1M IV Last administered on 07/17/19at 14:52; Start 07/12/19 at 11:30; Stop 07/17/19 at 19:59; Status DC Potassium Chloride 20 meq/ Bicarbonate Dialysis Soln w/ out KCl 5,010 ml @ 1,000 mls/hr Q5H1M IV Last administered on 07/17/19at 14:53; Start 07/12/19 at 11:30; Stop 07/17/19 at 19:59; Status DC Sodium Chloride 90 meq/Potassium Chloride 15 meq/ Potassium Phosphate 15 mmol/ Magnesium Sulfate 10 meq/Calcium Gluconate 15 meq/ Multivitamins 10 ml/Chromium/ Copper/Manganese/ Seleni/Zn 0.5 ml/ Total Parenteral Nutrition/Amino Acids/Dextrose/ Fat Emulsion Intravenous 1,400 ml @ 58.333 mls/ hr TPN CONT IV Last administered on 07/12/19at 22:17; Start 07/12/19 at 22:00; Stop 07/13/19 at 21:59; Status DC Cefepime HCl (Maxipime) 2 gm Q12HR IVP Last administered on 07/26/19at 20:56; Start 07/13/19 at 09:00; Stop 07/27/19 at 09:58; Status DC Daptomycin 500 mg/ Sodium Chloride 50 ml @ 100 mls/hr Q48H IV Last administered on 07/29/19at 09:57; Start 07/13/19 at 08:30; Stop 07/29/19 at 10:07; Status DC Lidocaine HCl (Buffered Lidocaine 1%) 3 ml 1X ONCE INJ Last administered on 07/13/19at 10:27; Start 07/13/19 at 10:30; Stop 07/13/19 at 10:31; Status DC Potassium Phosphate 20 mmol/ Sodium Chloride 106.6667 ml @ 51.667 m... 1X ONCE IV Last administered on 07/13/19at 12:51; Start 07/13/19 at 13:00; Stop 07/13/19 at 15:03; Status DC Sodium Chloride 90 meq/Potassium Chloride 15 meq/ Potassium Phosphate 18 mmol/ Magnesium Sulfate 8 meq/Calcium Gluconate 15 meq/ Multivitamins 10 ml/Chromium/ Copper/Manganese/ Seleni/Zn 0.5 ml/ Total Parenteral Nutrition/Amino Acids/Dextrose/ Fat Emulsion Intravenous 1,400 ml @ 58.333 mls/ hr TPN CONT IV Last administered on 07/13/19at 22:16; Start 07/13/19 at 22:00; Stop 07/14/19 at 21:59; Status DC Potassium Chloride 20 meq/ Bicarbonate Dialysis Soln w/ out KCl 5,010 ml @ 1,000 mls/hr Q5H1M IV Last administered on 07/17/19at 14:54; Start 07/13/19 at 16:00; Stop 07/17/19 at 19:59; Status DC Multi-Ingred Cream/Lotion/Oil/ Oint (Artificial Tears Eye Ointment) 1 ramu PRN Q1HR PRN OU DRY EYE, 2nd choice Last administered on 08/01/19at 08:19; Start 07/13/19 at 17:30 Sodium Chloride 90 meq/Potassium Chloride 15 meq/ Potassium Phosphate 18 mmol/ Magnesium Sulfate 8 meq/Calcium Gluconate 15 meq/ Multivitamins 10 ml/Chromium/ Copper/Manganese/ Seleni/Zn 0.5 ml/ Total Parenteral Nutrition/Amino Acids/Dextrose/ Fat Emulsion Intravenous 1,400 ml @ 58.333 mls/ hr TPN CONT IV Last administered on 07/14/19at 22:00; Start 07/14/19 at 22:00; Stop 07/15/19 at 21:59; Status DC Albumin Human 500 ml @ 125 mls/hr 1X ONCE IV ; Start 07/14/19 at 14:15; Stop 07/14/19 at 18:14; Status DC Sodium Chloride 90 meq/Potassium Chloride 15 meq/ Potassium Phosphate 18 mmol/ Magnesium Sulfate 8 meq/Calcium Gluconate 15 meq/ Multivitamins 10 ml/Chromium/ Copper/Manganese/ Seleni/Zn 0.5 ml/ Insulin Human Regular 10 unit/ Total Parenteral Nutrition/Amino Acids/Dextrose/ Fat Emulsion Intravenous 1,400 ml @ 58.333 mls/ hr TPN CONT IV Last administered on 07/15/19at 21:43; Start 07/15/19 at 22:00; Stop 07/16/19 at 21:59; Status DC Lidocaine HCl (Buffered Lidocaine 1%) 3 ml STK-MED ONCE .ROUTE ; Start 07/13/19 at 10:00; Stop 07/15/19 at 13:57; Status DC Midazolam HCl 100 mg/Sodium Chloride 100 ml @ 7 mls/hr CONT PRN IV SEE PROTOCOL Last administered on 07/27/19at 15:35; Start 07/16/19 at 16:00 Sodium Chloride 90 meq/Potassium Chloride 15 meq/ Potassium Phosphate 18 mmol/ Magnesium Sulfate 8 meq/Calcium Gluconate 15 meq/ Multivitamins 10 ml/Chromium/ Copper/Manganese/ Seleni/Zn 0.5 ml/ Insulin Human Regular 15 unit/ Total Parenteral Nutrition/Amino Acids/Dextrose/ Fat Emulsion Intravenous 1,400 ml @ 58.333 mls/ hr TPN CONT IV Last administered on 07/16/19at 20:34; Start 07/16/19 at 22:00; Stop 07/17/19 at 21:59; Status DC Info (Icu Electrolyte Protocol) 1 ea CONT PRN PRN MC PER PROTOCOL; Start 07/17/19 at 13:15 Sodium Chloride 90 meq/Potassium Chloride 15 meq/ Potassium Phosphate 18 mmol/ Magnesium Sulfate 8 meq/Calcium Gluconate 15 meq/ Multivitamins 10 ml/Chromium/ Copper/Manganese/ Seleni/Zn 0.5 ml/ Insulin Human Regular 15 unit/ Total Parenteral Nutrition/Amino Acids/Dextrose/ Fat Emulsion Intravenous 1,400 ml @ 58.333 mls/ hr TPN CONT IV Last administered on 07/17/19at 22:05; Start 07/17/19 at 22:00; Stop 07/18/19 at 21:59; Status DC Potassium Chloride 15 meq/ Bicarbonate Dialysis Soln w/ out KCl 5,007.5 ml @ 1,000 mls/ hr Q5H1M IV Last administered on 07/20/19at 18:14; Start 07/17/19 at 20:00; Stop 07/21/19 at 13:08; Status DC Potassium Chloride 15 meq/ Bicarbonate Dialysis Soln w/ out KCl 5,007.5 ml @ 1,000 mls/ hr Q5H1M IV Last administered on 07/20/19at 18:14; Start 07/17/19 at 20:00; Stop 07/21/19 at 13:08; Status DC Potassium Chloride 15 meq/ Bicarbonate Dialysis Soln w/ out KCl 5,007.5 ml @ 1,000 mls/ hr Q5H1M IV Last administered on 07/20/19at 18:14; Start 07/17/19 at 20:00; Stop 07/21/19 at 13:08; Status DC Iohexol (Omnipaque 240 Mg/ml) 30 ml 1X ONCE PO Last administered on 07/18/19at 11:30; Start 07/18/19 at 11:30; Stop 07/18/19 at 11:33; Status DC Info (CONTRAST GIVEN -- Rx MONITORING) 1 each PRN DAILY PRN MC SEE COMMENTS; Start 07/18/19 at 11:45; Stop 07/20/19 at 11:44; Status DC Sodium Chloride 90 meq/Potassium Chloride 15 meq/ Potassium Phosphate 18 mmol/ Magnesium Sulfate 8 meq/Calcium Gluconate 15 meq/ Multivitamins 10 ml/Chromium/ Copper/Manganese/ Seleni/Zn 0.5 ml/ Insulin Human Regular 15 unit/ Total Parenteral Nutrition/Amino Acids/Dextrose/ Fat Emulsion Intravenous 1,400 ml @ 58.333 mls/ hr TPN CONT IV Last administered on 07/18/19at 21:47; Start 07/18/19 at 22:00; Stop 07/19/19 at 21:59; Status DC Sodium Chloride 90 meq/Potassium Chloride 15 meq/ Potassium Phosphate 18 mmol/ Magnesium Sulfate 8 meq/Calcium Gluconate 15 meq/ Multivitamins 10 ml/Chromium/ Copper/Manganese/ Seleni/Zn 0.5 ml/ Insulin Human Regular 20 unit/ Total Parenteral Nutrition/Amino Acids/Dextrose/ Fat Emulsion Intravenous 1,400 ml @ 58.333 mls/ hr TPN CONT IV Last administered on 07/19/19at 21:36; Start 07/19/19 at 22:00; Stop 07/20/19 at 21:59; Status DC Alteplase, Recombinant (Cathflo For Central Catheter Clearance) 1 mg 1X ONCE INT CAT Last administered on 07/19/19at 20:03; Start 07/19/19 at 19:30; Stop 07/19/19 at 19:46; Status DC Alteplase, Recombinant (Cathflo For Central Catheter Clearance) 1 mg 1X ONCE INT CAT Last administered on 07/19/19at 22:05; Start 07/19/19 at 22:00; Stop 07/19/19 at 22:01; Status DC Sodium Chloride 90 meq/Potassium Chloride 15 meq/ Potassium Phosphate 18 mmol/ Magnesium Sulfate 8 meq/Calcium Gluconate 15 meq/ Multivitamins 10 ml/Chromium/ Copper/Manganese/ Seleni/Zn 0.5 ml/ Insulin Human Regular 20 unit/ Total Parenteral Nutrition/Amino Acids/Dextrose/ Fat Emulsion Intravenous 1,400 ml @ 58.333 mls/ hr TPN CONT IV Last administered on 07/20/19at 21:30; Start 07/20/19 at 22:00; Stop 07/21/19 at 21:59; Status DC Dexmedetomidine HCl 400 mcg/ Sodium Chloride 100 ml @ 0 mls/hr CONT PRN IV ANXIETY / AGITATION Last administered on 09/13/19at 15:16; Start 07/21/19 at 08:15 Sodium Chloride 500 ml @ 500 mls/hr 1X PRN PRN IV ELEVATED BP, SEE COMMENTS; Start 07/21/19 at 08:15 Atropine Sulfate (ATROPINE 0.5mg SYRINGE) 0.5 mg PRN Q5MIN PRN IV SEE COMMENTS; Start 07/21/19 at 08:15 Furosemide (Lasix) 20 mg 1X ONCE IVP Last administered on 07/21/19at 08:19; Start 07/21/19 at 08:15; Stop 07/21/19 at 08:16; Status DC Lidocaine HCl (Buffered Lidocaine 1%) 3 ml STK-MED ONCE .ROUTE ; Start 07/21/19 at 08:39; Stop 07/21/19 at 08:39; Status DC Lidocaine HCl (Buffered Lidocaine 1%) 6 ml 1X ONCE INJ Last administered on 07/21/19at 09:05; Start 07/21/19 at 09:00; Stop 07/21/19 at 09:06; Status DC Sodium Chloride 90 meq/Potassium Chloride 15 meq/ Potassium Phosphate 18 mmol/ Magnesium Sulfate 8 meq/Calcium Gluconate 15 meq/ Multivitamins 10 ml/Chromium/ Copper/Manganese/ Seleni/Zn 0.5 ml/ Insulin Human Regular 20 unit/ Total Parenteral Nutrition/Amino Acids/Dextrose/ Fat Emulsion Intravenous 1,400 ml @ 58.333 mls/ hr TPN CONT IV Last administered on 07/21/19at 22:45; Start 07/21/19 at 22:00; Stop 07/22/19 at 21:59; Status DC Sodium Chloride 1,000 ml @ 1,000 mls/hr Q1H PRN IV hypotension; Start 07/22/19 at 07:30; Stop 07/22/19 at 13:29; Status DC Albumin Human 200 ml @ 200 mls/hr 1X PRN PRN IV Hypotension Last administered on 07/22/19at 09:36; Start 07/22/19 at 07:30; Stop 07/22/19 at 13:29; Status DC Sodium Chloride (Normal Saline Flush) 10 ml 1X PRN PRN IV AP catheter pack; Start 07/22/19 at 07:30; Stop 07/22/19 at 21:29; Status DC Sodium Chloride (Normal Saline Flush) 10 ml 1X PRN PRN IV [employer] catheter pack; Start 07/22/19 at 07:30; Stop 07/23/19 at 07:29; Status DC Sodium Chloride 1,000 ml @ 400 mls/hr Q2H30M PRN IV PATENCY; Start 07/22/19 at 07:30; Stop 07/22/19 at 19:29; Status DC Info (PHARMACY MONITORING -- do not chart) 1 each PRN DAILY PRN MC SEE COMMENTS; Start 07/22/19 at 07:30; Stop 07/22/19 at 13:02; Status DC Info (PHARMACY MONITORING -- do not chart) 1 each PRN DAILY PRN MC SEE COMMENTS; Start 07/22/19 at 07:30; Stop 07/24/19 at 12:45; Status DC Sodium Chloride 90 meq/Potassium Chloride 15 meq/ Potassium Phosphate 10 mmol/ Magnesium Sulfate 8 meq/Calcium Gluconate 15 meq/ Multivitamins 10 ml/Chromium/ Copper/Manganese/ Seleni/Zn 0.5 ml/ Insulin Human Regular 25 unit/ Total Parenteral Nutrition/Amino Acids/Dextrose/ Fat Emulsion Intravenous 1,400 ml @ 58.333 mls/ hr TPN CONT IV Last administered on 07/22/19at 22:19; Start 07/22/19 at 22:00; Stop 07/23/19 at 21:59; Status DC Heparin Sodium (Porcine) (Heparin Sodium) 5,000 unit Q12HR SQ Last administered on 08/14/19at 08:59; Start 07/22/19 at 21:00; Stop 08/14/19 at 10:05; Status DC Ondansetron HCl (Zofran) 4 mg PRN Q6HRS PRN IV NAUSEA/VOMITING; Start 07/25/19 at 07:00; Stop 07/26/19 at 06:59; Status DC Fentanyl Citrate (Fentanyl 2ml Vial) 25 mcg PRN Q5MIN PRN IV MILD PAIN 1-3; Start 07/25/19 at 07:00; Stop 07/26/19 at 06:59; Status DC Fentanyl Citrate (Fentanyl 2ml Vial) 50 mcg PRN Q5MIN PRN IV MODERATE TO SEVERE PAIN; Start 07/25/19 at 07:00; Stop 07/26/19 at 06:59; Status DC Ringer's Solution 1,000 ml @ 30 mls/hr Q24H IV ; Start 07/25/19 at 07:00; Stop 07/25/19 at 18:59; Status DC Lidocaine HCl (Xylocaine-Mpf 1% 2ml Vial) 2 ml PRN 1X PRN ID PRIOR TO IV START; Start 07/25/19 at 07:00; Stop 07/26/19 at 06:59; Status DC Prochlorperazine Edisylate (Compazine) 5 mg PACU PRN PRN IV NAUSEA, MRX1; Start 07/25/19 at 07:00; Stop 07/26/19 at 06:59; Status DC Sodium Chloride 1,000 ml @ 1,000 mls/hr Q1H PRN IV hypotension; Start 07/23/19 at 09:10; Stop 07/23/19 at 15:09; Status DC Albumin Human 200 ml @ 200 mls/hr 1X PRN PRN IV Hypotension Last administered on 07/23/19at 10:10; Start 07/23/19 at 09:15; Stop 07/23/19 at 15:14; Status DC Sodium Chloride 1,000 ml @ 400 mls/hr Q2H30M PRN IV PATENCY; Start 07/23/19 at 09:10; Stop 07/23/19 at 21:09; Status DC Info (PHARMACY MONITORING -- do not chart) 1 each PRN DAILY PRN MC SEE COMMENTS; Start 07/23/19 at 09:15; Stop 07/24/19 at 12:45; Status DC Info (PHARMACY MONITORING -- do not chart) 1 each PRN DAILY PRN MC SEE COMMENTS; Start 07/23/19 at 09:15; Stop 07/24/19 at 12:45; Status DC Sodium Chloride 90 meq/Potassium Chloride 15 meq/ Potassium Phosphate 10 mmol/ Magnesium Sulfate 8 meq/Calcium Gluconate 15 meq/ Multivitamins 10 ml/Chromium/ Copper/Manganese/ Seleni/Zn 0.5 ml/ Insulin Human Regular 25 unit/ Total Parenteral Nutrition/Amino Acids/Dextrose/ Fat Emulsion Intravenous 1,400 ml @ 58.333 mls/ hr TPN CONT IV Last administered on 07/23/19at 22:10; Start 07/23/19 at 22:00; Stop 07/24/19 at 21:59; Status DC Magnesium Sulfate 50 ml @ 25 mls/hr PRN DAILY PRN IV for Mag < 1.7 on am labs Last administered on 08/08/19at 17:27; Start 07/24/19 at 09:15 Sodium Chloride 90 meq/Potassium Chloride 15 meq/ Potassium Phosphate 10 mmol/ Magnesium Sulfate 8 meq/Calcium Gluconate 15 meq/ Multivitamins 10 ml/Chromium/ Copper/Manganese/ Seleni/Zn 0.5 ml/ Insulin Human Regular 25 unit/ Total Parenteral Nutrition/Amino Acids/Dextrose/ Fat Emulsion Intravenous 1,400 ml @ 58.333 mls/ hr TPN CONT IV Last administered on 07/24/19at 21:20; Start 07/24/19 at 22:00; Stop 07/25/19 at 21:59; Status DC Sodium Chloride 1,000 ml @ 1,000 mls/hr Q1H PRN IV hypotension; Start 07/24/19 at 12:23; Stop 07/24/19 at 18:22; Status DC Albumin Human 200 ml @ 200 mls/hr 1X ONCE IV Last administered on 07/24/19at 13:34; Start 07/24/19 at 12:30; Stop 07/24/19 at 13:29; Status DC Diphenhydramine HCl (Benadryl) 25 mg 1X PRN PRN IV ITCHING; Start 07/24/19 at 12:30; Stop 07/25/19 at 12:29; Status DC Diphenhydramine HCl (Benadryl) 25 mg 1X PRN PRN IV ITCHING; Start 07/24/19 at 12:30; Stop 07/25/19 at 12:29; Status DC Info (PHARMACY MONITORING -- do not chart) 1 each PRN DAILY PRN MC SEE COMMENTS; Start 07/24/19 at 12:30; Status Cancel Bupivacaine HCl/ Epinephrine Bitart (Sensorcain-Epi 0.5%-1:[id number] Mpf) 30 ml STK-MED ONCE .ROUTE Last administered on 07/25/19at 11:44; Start 07/25/19 at 11:00; Stop 07/25/19 at 11:01; Status DC Cellulose (Surgicel Fibrillar 1x2) 1 each STK-MED ONCE .ROUTE ; Start 07/25/19 at 11:00; Stop 07/25/19 at 11:01; Status DC Sodium Chloride 90 meq/Potassium Chloride 15 meq/ Potassium Phosphate 10 mmol/ M agnesium Sulfate 12 meq/Calcium Gluconate 15 meq/ Multivitamins 10 ml/Chromium/ Copper/Manganese/ Seleni/Zn 0.5 ml/ Insulin Human Regular 25 unit/ Total Parenteral Nutrition/Amino Acids/Dextrose/ Fat Emulsion Intravenous 1,400 ml @ 58.333 mls/ hr TPN CONT IV Last administered on 07/25/19at 22:24; Start 07/25/19 at 22:00; Stop 07/26/19 at 21:59; Status DC Propofol 20 ml @ As Directed STK-MED ONCE IV ; Start 07/25/19 at 11:07; Stop 07/25/19 at 11:07; Status DC Cellulose (Surgicel Hemostat 4x8) 1 each STK-MED ONCE .ROUTE Last administered on 07/25/19at 11:44; Start 07/25/19 at 11:55; Stop 07/25/19 at 11:56; Status DC Sevoflurane (Ultane) 60 ml STK-MED ONCE IH ; Start 07/25/19 at 12:46; Stop 07/25/19 at 12:46; Status DC Sodium Chloride 1,000 ml @ 1,000 mls/hr Q1H PRN IV hypotension; Start 07/25/19 at 13:51; Stop 07/25/19 at 19:50; Status DC Albumin Human 200 ml @ 200 mls/hr 1X PRN PRN IV Hypotension Last administered on 07/25/19at 14:51; Start 07/25/19 at 14:00; Stop 07/25/19 at 19:59; Status DC Diphenhydramine HCl (Benadryl) 25 mg 1X PRN PRN IV ITCHING; Start 07/25/19 at 14:00; Stop 07/26/19 at 13:59; Status DC Diphenhydramine HCl (Benadryl) 25 mg 1X PRN PRN IV ITCHING; Start 07/25/19 at 14:00; Stop 07/26/19 at 13:59; Status DC Sodium Chloride 1,000 ml @ 400 mls/hr Q2H30M PRN IV PATENCY; Start 07/25/19 at 13:51; Stop 07/26/19 at 01:50; Status DC Info (PHARMACY MONITORING -- do not chart) 1 each PRN DAILY PRN MC SEE COMMENTS; Start 07/25/19 at 14:00; Stop 07/28/19 at 08:16; Status DC Heparin Sodium (Porcine) (Hep Lock Adult) 500 unit STK-MED ONCE IVP ; Start 07/26/19 at 09:29; Stop 07/26/19 at 09:30; Status DC Sodium Chloride 1,000 ml @ 1,000 mls/hr Q1H PRN IV hypotension; Start 07/26/19 at 10:43; Stop 07/26/19 at 16:42; Status DC Sodium Chloride 1,000 ml @ 400 mls/hr Q2H30M PRN IV PATENCY; Start 07/26/19 at 10:43; Stop 07/26/19 at 22:42; Status DC Info (PHARMACY MONITORING -- do not chart) 1 each PRN DAILY PRN MC SEE COMMENTS; Start 07/26/19 at 10:45; Status UNV Info (PHARMACY MONITORING -- do not chart) 1 each PRN DAILY PRN MC SEE COMMENTS; Start 07/26/19 at 10:45; Status UNV Sodium Chloride 90 meq/Potassium Chloride 15 meq/ Magnesium Sulfate 12 meq/Calcium Gluconate 15 meq/ Multivitamins 10 ml/Chromium/ Copper/Manganese/ Seleni/Zn 0.5 ml/ Insulin Human Regular 25 unit/ Total Parenteral Nutrition/Amino Acids/Dextrose/ Fat Emulsion Intravenous 1,400 ml @ 58.333 mls/ hr TPN CONT IV Last administered on 07/26/19at 22:13; Start 07/26/19 at 22:00; Stop 07/27/19 at 21:59; Status DC Sodium Chloride 1,000 ml @ 1,000 mls/hr Q1H PRN IV hypotension; Start 07/27/19 at 07:50; Stop 07/27/19 at 13:49; Status DC Albumin Human 200 ml @ 200 mls/hr 1X ONCE IV ; Start 07/27/19 at 08:00; Stop 07/27/19 at 08:53; Status DC Diphenhydramine HCl (Benadryl) 25 mg 1X PRN PRN IV ITCHING; Start 07/27/19 at 08:00; Stop 07/28/19 at 07:59; Status DC Diphenhydramine HCl (Benadryl) 25 mg 1X PRN PRN IV ITCHING; Start 07/27/19 at 08 :00; Stop 07/28/19 at 07:59; Status DC Info (PHARMACY MONITORING -- do not chart) 1 each PRN DAILY PRN MC SEE COMMENTS; Start 07/27/19 at 08:00; Stop 07/28/19 at 08:16; Status DC Albumin Human 50 ml @ 50 mls/hr 1X ONCE IV ; Start 07/27/19 at 08:53; Stop at 08:56; Status DC Albumin Human 200 ml @ 50 mls/hr PRN 1X PRN IV HYPOTENSION Last administered on 08/02/19at 11:54; Start 07/27/19 at 09:00; Stop 09/08/19 at 11:14; Status DC Meropenem 500 mg/ Sodium Chloride 50 ml @ 100 mls/hr Q12H IV Last administered on 08/16/19at 10:45; Start 07/27/19 at 10:00; Stop 08/16/19 at 12:37; Status DC Sodium Chloride 90 meq/Magnesium Sulfate 12 meq/ Calcium Gluconate 15 meq/ Multivitamins 10 ml/Chromium/ Copper/Manganese/ Seleni/Zn 0.5 ml/ Insulin Human Regular 25 unit/ Total Parenteral Nutrition/Amino Acids/Dextrose/ Fat Emulsion Intravenous 1,400 ml @ 58.333 mls/ hr TPN CONT IV Last administered on 07/27/19at 21:41; Start 07/27/19 at 22:00; Stop 07/28/19 at 21:59; Status DC Sodium Chloride 1,000 ml @ 1,000 mls/hr Q1H PRN IV hypotension; Start 07/28/19 at 07:58; Stop 07/28/19 at 13:57; Status DC Albumin Human 200 ml @ 200 mls/hr 1X PRN PRN IV Hypotension Last administered on 07/28/19at 09:30; Start 07/28/19 at 08:00; Stop 07/28/19 at 13:59; Status DC Sodium Chloride 1,000 ml @ 400 mls/hr Q2H30M PRN IV PATENCY; Start 07/28/19 at 07:58; Stop 07/28/19 at 19:57; Status DC Info (PHARMACY MONITORING -- do not chart) 1 each PRN DAILY PRN MC SEE COMMENTS; Start 07/28/19 at 08:00; Status Cancel Info (PHARMACY MONITORING -- do not chart) 1 each PRN DAILY PRN MC SEE COMMENTS; Start 07/28/19 at 08:15; Status UNV Sodium Chloride 90 meq/Potassium Phosphate 5 mmol/ Magnesium Sulfate 12 meq/Calcium Gluconate 15 meq/ Multivitamins 10 ml/Chromium/ Copper/Manganese/ Seleni/Zn 0.5 ml/ Insulin Human Regular 30 unit/ Total Parenteral Nutrition/Amino Acids/Dextrose/ Fat Emulsion Intravenous 1,400 ml @ 58.333 mls/ hr TPN CONT IV Last administered on 07/28/19at 22:08; Start 07/28/19 at 22:00; Stop 07/29/19 at 21:59; Status DC Linezolid/Dextrose 300 ml @ 300 mls/hr Q12HR IV Last administered on 08/08/19at 20:40; Start 07/29/19 at 11:00; Stop 08/09/19 at 08:10; Status DC Sodium Chloride 90 meq/Potassium Phosphate 15 mmol/ Magnesium Sulfate 12 meq/Calcium Gluconate 15 meq/ Multivitamins 10 ml/Chromium/ Copper/Manganese/ Seleni/Zn 0.5 ml/ Insulin Human Regular 30 unit/ Total Parenteral Nutrition/Amino Acids/Dextrose/ Fat Emulsion Intravenous 1,400 ml @ 58.333 mls/ hr TPN CONT IV Last administered on 07/29/19at 21:49; Start 07/29/19 at 22:00; Stop 07/30/19 at 21:59; Status DC Sodium Chloride 90 meq/Potassium Phosphate 15 mmol/ Magnesium Sulfate 12 meq/Calcium Gluconate 15 meq/ Multivitamins 10 ml/Chromium/ Copper/Manganese/ Seleni/Zn 0.5 ml/ Insulin Human Regular 40 unit/ Total Parenteral Nutrit ion/Amino Acids/Dextrose/ Fat Emulsion Intravenous 1,400 ml @ 58.333 mls/ hr TPN CONT IV Last administered on 07/30/19at 21:21; Start 07/30/19 at 22:00; Stop 07/31/19 at 21:59; Status DC Sodium Chloride 1,000 ml @ 1,000 mls/hr Q1H PRN IV hypotension; Start 07/30/19 at 13:26; Stop 07/30/19 at 19:25; Status DC Albumin Human 200 ml @ 200 mls/hr 1X PRN PRN IV Hypotension Last administered on 07/30/19at 15:00; Start 07/30/19 at 13:30; Stop 07/30/19 at 19:29; Status DC Sodium Chloride (Normal Saline Flush) 10 ml 1X PRN PRN IV AP catheter pack; Start 07/30/19 at 13:30; Stop 07/31/19 at 13:29; Status DC Sodium Chloride (Normal Saline Flush) 10 ml 1X PRN PRN IV [employer] catheter pack; Start 07/30/19 at 13:30; Stop 07/31/19 at 13:29; Status DC Sodium Chloride 1,000 ml @ 400 mls/hr Q2H30M PRN IV PATENCY; Start 07/30/19 at 13:26; Stop 07/31/19 at 01:25; Status DC Info (PHARMACY MONITORING -- do not chart) 1 each PRN DAILY PRN MC SEE COMMENTS; Start 07/30/19 at 13:30; Stop 07/30/19 at 13:33; Status DC Info (PHARMACY MONITORING -- do not chart) 1 each PRN DAILY PRN MC SEE COMMENTS; Start 07/30/19 at 13:30; Stop 07/30/19 at 13:34; Status DC Sodium Chloride 90 meq/Potassium Phosphate 19 mmol/ Magnesium Sulfate 12 meq/Calcium Gluconate 15 meq/ Multivitamins 10 ml/Chromium/ Copper/Manganese/ Seleni/Zn 0.5 ml/ Insulin Human Regular 40 unit/ Total Parenteral Nutrition/Amino Acids/Dextrose/ Fat Emulsion Intravenous 1,400 ml @ 58.333 mls/ hr TPN CONT IV Last administered on 07/31/19at 21:54; Start 07/31/19 at 22:00; Stop 08/01/19 at 21:59; Status DC Sodium Chloride 1,000 ml @ 1,000 mls/hr Q1H PRN IV hypotension; Start 08/01/19 at 09:35; Stop 08/01/19 at 15:34; Status DC Albumin Human 200 ml @ 200 mls/hr 1X PRN PRN IV Hypotension; Start 08/01/19 at 09:45; Stop 08/01/19 at 15:44; Status DC Diphenhydramine HCl (Benadryl) 25 mg 1X PRN PRN IV ITCHING; Start 08/01/19 at 09:45; Stop 08/02/19 at 09:44; Status DC Diphenhydramine HCl (Benadryl) 25 mg 1X PRN PRN IV ITCHING; Start 08/01/19 at 09:45; Stop 08/02/19 at 09:44; Status DC Sodium Chloride 1,000 ml @ 400 mls/hr Q2H30M PRN IV PATENCY; Start 08/01/19 at 09:35; Stop 08/01/19 at 21:34; Status DC Info (PHARMACY MONITORING -- do not chart) 1 each PRN DAILY PRN MC SEE COMMENTS; Start 08/01/19 at 09:45; Status Cancel Sodium Chloride 100 meq/Potassium Phosphate 19 mmol/ Magnesium Sulfate 12 meq/Calcium Gluconate 15 meq/ Multivitamins 10 ml/Chromium/ Copper/Manganese/ Seleni/Zn 0.5 ml/ Insulin Human Regular 40 unit/ Potassium Chloride 20 meq/ Total Parenteral Nutrition/Amino Acids/Dextrose/ Fat Emulsion Intravenous 1,400 ml @ 58.333 mls/ hr TPN CONT IV Last administered on 08/01/19at 22:02; Start 08/01/19 at 22:00; Stop 08/02/19 at 21:59; Status DC Furosemide (Lasix) 40 mg 1X ONCE IVP Last administered on 08/01/19at 14:39; Start 08/01/19 at 14:30; Stop 08/01/19 at 14:31; Status DC Metronidazole 100 ml @ 100 mls/hr Q8HRS IV Last administered on 08/09/19at 06:04; Start 08/02/19 at 10:00; Stop 08/09/19 at 08:10; Status DC Sodium Chloride 1,000 ml @ 1,000 mls/hr Q1H PRN IV hypotension; Start 08/02/19 at 08:00; Stop 08/02/19 at 13:59; Status DC Albumin Human 200 ml @ 200 mls/hr 1X PRN PRN IV Hypotension; Start 08/02/19 at 08:00; Stop 08/02/19 at 13:59; Status DC Sodium Chloride 1,000 ml @ 400 mls/hr Q2H30M PRN IV PATENCY; Start 08/02/19 at 08:00; Stop 08/02/19 at 19:59; Status DC Info (PHARMACY MONITORING -- do not chart) 1 each PRN DAILY PRN MC SEE COMMENTS; Start 08/02/19 at 11:30; Status UNV Info (PHARMACY MONITORING -- do not chart) 1 each PRN DAILY PRN MC SEE COMMENTS; Start 08/02/19 at 11:30; Stop 08/04/19 at 12:13; Status DC Sodium Chloride 100 meq/Potassium Phosphate 19 mmol/ Magnesium Sulfate 12 meq/Calcium Gluconate 15 meq/ Multivitamins 10 ml/Chromium/ Copper/Manganese/ Seleni/Zn 0.5 ml/ Insulin Human Regular 40 unit/ Potassium Chloride 20 meq/ Total Parenteral Nutrition/Amino Acids/Dextrose/ Fat Emulsion Intravenous 1,400 ml @ 58.333 mls/ hr TPN CONT IV Last administered on 08/02/19at 21:52; Start 08/02/19 at 22:00; Stop 08/03/19 at 21:59; Status DC Sodium Chloride (Normal Saline Flush) 10 ml QSHIFT PRN IV AFTER MEDS AND BLOOD DRAWS; Start 08/02/19 at 15:00; Stop 08/30/19 at 11:27; Status DC Sodium Chloride (Normal Saline Flush) 10 ml PRN Q5MIN PRN IV AFTER MEDS AND BLOOD DRAWS; Start 08/02/19 at 15:00 Sodium Chloride (Normal Saline Flush) 20 ml PRN Q5MIN PRN IV AFTER MEDS AND BLOOD DRAWS; Start 08/02/19 at 15:00 Sodium Chloride 100 meq/Potassium Phosphate 19 mmol/ Magnesium Sulfate 12 meq/Calcium Gluconate 15 meq/ Multivitamins 10 ml/Chromium/ Copper/Manganese/ Seleni/Zn 0.5 ml/ Insulin Human Regular 40 unit/ Potassium Chloride 20 meq/ Total Parenteral Nutrition/Amino Acids/Dextrose/ Fat Emulsion Intravenous 1,400 ml @ 58.333 mls/ hr TPN CONT IV Last administered on 08/03/19at 21:20; Start 08/03/19 at 22:00; Stop 08/04/19 at 21:59; Status DC Lidocaine HCl (Buffered Lidocaine 1%) 3 ml STK-MED ONCE .ROUTE ; Start 08/03/19 at 13:16; Stop 08/03/19 at 13:16; Status DC Lidocaine HCl (Buffered Lidocaine 1%) 6 ml 1X ONCE INJ Last administered on 08/03/19at 13:45; Start 08/03/19 at 13:30; Stop 08/03/19 at 13:31; Status DC Albumin Human 100 ml @ 100 mls/hr 1X ONCE IV Last administered on 08/03/19at 15:41; Start 08/03/19 at 15:00; Stop 08/03/19 at 15:59; Status DC Albumin Human 50 ml @ 50 mls/hr 1X ONCE IV Last administered on 08/03/19at 15:00; Start 08/03/19 at 15:00; Stop 08/03/19 at 15:59; Status DC Info (PHARMACY MONITORING -- do not chart) 1 each PRN DAILY PRN MC SEE COMMENTS; Start 08/04/19 at 11:30; Status Cancel Info (PHARMACY MONITORING -- do not chart) 1 each PRN DAILY PRN MC SEE COMMENTS; Start 08/04/19 at 11:30; Status UNV Sodium Chloride 100 meq/Potassium Phosphate 10 mmol/ Magnesium Sulfate 12 meq/Calcium Gluconate 15 meq/ Multivitamins 10 ml/Chromium/ Copper/Manganese/ Seleni/Zn 0.5 ml/ Insulin Human Regular 35 unit/ Potassium Chloride 20 meq/ Total Parenteral Nutrition/Amino Acids/Dextrose/ Fat Emulsion Intravenous 1,400 ml @ 58.333 mls/ hr TPN CONT IV Last administered on 08/04/19at 22:10; Start 08/04/19 at 22:00; Stop 08/05/19 at 21:59; Status DC Sodium Chloride 100 meq/Potassium Phosphate 5 mmol/ Magnesium Sulfate 12 meq/Calcium Gluconate 15 meq/ Multivitamins 10 ml/Chromium/ Copper/Manganese/ Seleni/Zn 0.5 ml/ Insulin Human Regular 35 unit/ Potassium Chloride 20 meq/ Total Parenteral Nutrition/Amino Acids/Dextrose/ Fat Emulsion Intravenous 1,400 ml @ 58.333 mls/ hr TPN CONT IV Last administered on 08/05/19at 22:59; Start 08/05/19 at 22:00; Stop 08/06/19 at 21:59; Status DC Sodium Chloride 1,000 ml @ 1,000 mls/hr Q1H PRN IV hypotension; Start 08/06/19 at 08:27; Stop 08/06/19 at 14:26; Status DC Albumin Human 200 ml @ 200 mls/hr 1X PRN PRN IV Hypotension Last administered on 08/06/19at 09:18; Start 08/06/19 at 08:30; Stop 08/06/19 at 14:29; Status DC Sodium Chloride 1,000 ml @ 400 mls/hr Q2H30M PRN IV PATENCY; Start 08/06/19 at 08:27; Stop 08/06/19 at 20:26; Status DC Info (PHARMACY MONITORING -- do not chart) 1 each PRN DAILY PRN MC SEE COMMENTS; Start 08/06/19 at 08:30; Status Cancel Info (PHARMACY MONITORING -- do not chart) 1 each PRN DAILY PRN MC SEE COMMENTS; Start 08/06/19 at 08:30; Stop 08/14/19 at 13:10; Status DC Sodium Chloride 100 meq/Potassium Chloride 40 meq/ Magnesium Sulfate 15 meq/Calcium Gluconate 15 meq/ Multivitamins 10 ml/Chromium/ Copper/Manganese/ S thien/Zn 0.5 ml/ Insulin Human Regular 35 unit/ Total Parenteral Nutrition/Amino Acids/Dextrose/ Fat Emulsion Intravenous 1,400 ml @ 58.333 mls/ hr TPN CONT IV Last administered on 08/06/19at 22:00; Start 08/06/19 at 22:00; Stop 08/07/19 at 21:59; Status DC Potassium Chloride/Water 100 ml @ 100 mls/hr 1X ONCE IV Last administered on 08/06/19at 17:28; Start 08/06/19 at 14:45; Stop 08/06/19 at 15:44; Status DC Sodium Chloride 100 meq/Potassium Chloride 40 meq/ Magnesium Sulfate 15 meq/Calcium Gluconate 15 meq/ Multivitamins 10 ml/Chromium/ Copper/Manganese/ Seleni/Zn 0.5 ml/ Insulin Human Regular 35 unit/ Total Parenteral Nutrit ion/Amino Acids/Dextrose/ Fat Emulsion Intravenous 1,400 ml @ 58.333 mls/ hr TPN CONT IV Last administered on 08/07/19at 22:46; Start 08/07/19 at 22:00; Stop 08/08/19 at 21:59; Status DC Sodium Chloride 100 meq/Potassium Chloride 40 meq/ Magnesium Sulfate 20 meq/Calcium Gluconate 15 meq/ Multivitamins 10 ml/Chromium/ Copper/Manganese/ Seleni/Zn 0.5 ml/ Insulin Human Regular 35 unit/ Total Parenteral Nutrition/Amino Acids/Dextrose/ Fat Emulsion Intravenous 1,400 ml @ 58.333 mls/ hr TPN CONT IV Last administered on 08/08/19at 22:31; Start 08/08/19 at 22:00; Stop 08/09/19 at 21:59; Status DC Fentanyl Citrate (Fentanyl 2ml Vial) 50 mcg PRN Q2HR PRN IVP PAIN Last administered on 08/15/19at 13:32; Start 08/08/19 at 21:00; Stop 08/16/19 at 12:53; Status DC Fentanyl Citrate (Fentanyl 2ml Vial) 25 mcg PRN Q2HR PRN IVP PAIN; Start 08/08/19 at 21:00; Stop 08/16/19 at 12:54; Status DC Enoxaparin Sodium (Lovenox 100mg Syringe) 100 mg Q12HR SQ ; Start 08/09/19 at 21:00; Status UNV Amino Acids/ Glycerin/ Electrolytes 1,000 ml @ 75 mls/hr [id number] IV ; Start 08/08/19 at 21:15; Status UNV Sodium Chloride 1,000 ml @ 1,000 mls/hr Q1H PRN IV hypotension; Start 08/09/19 at 07:56; Stop 08/09/19 at 13:55; Status DC Albumin Human 200 ml @ 200 mls/hr 1X PRN PRN IV Hypotension Last administered on 08/09/19at 08:40; Start 08/09/19 at 08:00; Stop 08/09/19 at 13:59; Status DC Sodium Chloride 1,000 ml @ 400 mls/hr Q2H30M PRN IV PATENCY; Start 08/09/19 at 07:56; Stop 08/09/19 at 19:55; Status DC Info (PHARMACY MONITORING -- do not chart) 1 each PRN DAILY PRN MC SEE COMMENTS; Start 08/09/19 at 08:00; Status UNV Info (PHARMACY MONITORING -- do not chart) 1 each PRN DAILY PRN MC SEE COMMENTS; Start 08/09/19 at 08:00; Status UNV Daptomycin 430 mg/ Sodium Chloride 50 ml @ 100 mls/hr Q24H IV Last administered on 08/09/19at 12:35; Start 08/09/19 at 09:00; Stop 08/09/19 at 12:49; Status DC Sodium Chloride 100 meq/Potassium Chloride 40 meq/ Magnesium Sulfate 20 meq/Calcium Gluconate 15 meq/ Multivitamins 10 ml/Chromium/ Copper/Manganese/ Seleni/Zn 0.5 ml/ Insulin Human Regular 35 unit/ Total Parenteral Nutrition/Amino Acids/Dextrose/ Fat Emulsion Intravenous 1,400 ml @ 58.333 mls/ hr TPN CONT IV Last administered on 08/09/19at 21:26; Start 08/09/19 at 22:00; Stop 08/10/19 at 21:59; Status DC Daptomycin 430 mg/ Sodium Chloride 50 ml @ 100 mls/hr Q48H IV ; Start 08/11/19 at 09:00; Stop 08/10/19 at 11:55; Status DC Sodium Chloride 100 meq/Potassium Chloride 40 meq/ Magnesium Sulfate 20 meq/Calcium Gluconate 15 meq/ Multivitamins 10 ml/Chromium/ Copper/Manganese/ Seleni/Zn 0.5 ml/ Insulin Human Regular 35 unit/ Total Parenteral Nutrition/Amino Acids/Dextrose/ Fat Emulsion Intravenous 1,400 ml @ 58.333 mls/ hr TPN CONT IV Last administered on 08/10/19at 22:27; Start 08/10/19 at 22:00; Stop 08/11/19 at 21:59; Status DC Daptomycin 430 mg/ Sodium Chloride 50 ml @ 100 mls/hr Q24H IV Last administered on 08/12/19at 15:07; Start 08/10/19 at 13:00; Stop 08/13/19 at 13:15; Status DC Sodium Chloride 100 meq/Potassium Chloride 40 meq/ Magnesium Sulfate 20 meq/Calcium Gluconate 10 meq/ Multivitamins 10 ml/Chromium/ Copper/Manganese/ Seleni/Zn 0.5 ml/ Insulin Human Regular 35 unit/ Total Parenteral Nutrition/Amino Acids/Dextrose/ Fat Emulsion Intravenous 1,400 ml @ 58.333 mls/ hr TPN CONT IV Last administered on 08/12/19at 00:06; Start 08/11/19 at 22:00; Stop 08/12/19 at 21:59; Status DC Alteplase, Recombinant (Cathflo For Central Catheter Clearance) 1 mg 1X ONCE INT CAT Last administered on 08/12/19at 11:44; Start 08/12/19 at 10:45; Stop 08/12/19 at 10:46; Status DC Ondansetron HCl (Zofran) 4 mg PRN Q6HRS PRN IV NAUSEA/VOMITING; Start 08/15/19 at 07:00; Stop 08/16/19 at 06:59; Status DC Fentanyl Citrate (Fentanyl 2ml Vial) 25 mcg PRN Q5MIN PRN IV MILD PAIN 1-3; Start 08/15/19 at 07:00; Stop 08/16/19 at 06:59; Status DC Fentanyl Citrate (Fentanyl 2ml Vial) 50 mcg PRN Q5MIN PRN IV MODERATE TO SEVERE PAIN Last administered on 08/15/19at 10:17; Start 08/15/19 at 07:00; Stop 08/16/19 at 06:59; Status DC Ringer's Solution 1,000 ml @ 30 mls/hr Q24H IV ; Start 08/15/19 at 07:00; Stop 08/15/19 at 18:59; Status DC Lidocaine HCl (Xylocaine-Mpf 1% 2ml Vial) 2 ml PRN 1X PRN ID PRIOR TO IV START; Start 08/15/19 at 07:00; Stop 08/16/19 at 06:59; Status DC Prochlorperazine Edisylate (Compazine) 5 mg PACU PRN PRN IV NAUSEA, MRX1; Start 08/15/19 at 07:00; Stop 08/16/19 at 06:59; Status DC Sodium Acetate 50 meq/Potassium Acetate 55 meq/ Magnesium Sulfate 20 meq/Calcium Gluconate 10 meq/ Multivitamins 10 ml/Chromium/ Copper/Manganese/ Seleni/Zn 0.5 ml/ Insulin Human Regular 35 unit/ Total Parenteral Nutrition/Amino Acids/Dextrose/ Fat Emulsion Intravenous 1,400 ml @ 58.333 mls/ hr TPN CONT IV ; Start 08/12/19 at 22:00; Stop 08/12/19 at 14:15; Status DC Sodium Acetate 50 meq/Potassium Acetate 55 meq/ Magnesium Sulfate 20 meq/Calcium Gluconate 10 meq/ Multivitamins 10 ml/Chromium/ Copper/Manganese/ Seleni/Zn 0.5 ml/ Insulin Human Regular 35 unit/ Total Parenteral Nutrition/Amino Acids/Dextrose/ Fat Emulsion Intravenous 1,800 ml @ 75 mls/hr TPN CONT IV Last administered on 08/12/19at 22:38; Start 08/12/19 at 22:00; Stop 08/13/19 at 21:59; Status DC Sodium Chloride 1,000 ml @ 1,000 mls/hr Q1H PRN IV hypotension; Start 08/12/19 at 15:31; Stop 08/12/19 at 21:30; Status DC Diphenhydramine HCl (Benadryl) 25 mg 1X PRN PRN IV ITCHING; Start 08/12/19 at 15:45; Stop 08/13/19 at 15:44; Status DC Diphenhydramine HCl (Benadryl) 25 mg 1X PRN PRN IV ITCHING; Start 08/12/19 at 15:45; Stop 08/13/19 at 15:44; Status DC Sodium Chloride 1,000 ml @ 400 mls/hr Q2H30M PRN IV PATENCY; Start 08/12/19 at 15:31; Stop 08/13/19 at 03:30; Status DC Info (PHARMACY MONITORING -- do not chart) 1 each PRN DAILY PRN MC SEE COMMENTS; Start 08/12/19 at 15:45; Stop 09/13/19 at 14:14; Status DC Sodium Acetate 50 meq/Potassium Acetate 55 meq/ Magnesium Sulfate 20 meq/Calcium Gluconate 10 meq/ Multivitamins 10 ml/Chromium/ Copper/Manganese/ Seleni/Zn 0.5 ml/ Insulin Human Regular 35 unit/ Total Parenteral Nutrition/Amino Acids/Dextrose/ Fat Emulsion Intravenous 1,800 ml @ 75 mls/hr TPN CONT IV Last administered on 08/13/19at 22:03; Start 08/13/19 at 22:00; Stop 08/14/19 at 21:59; Status DC Daptomycin 430 mg/ Sodium Chloride 50 ml @ 100 mls/hr Q24H IV Last administered on 08/18/19at 13:00; Start 08/13/19 at 13:00; Stop 08/18/19 at 20:58; Status DC Heparin Sodium (Porcine) 1000 unit/Sodium Chloride 1,001 ml @ 1,001 mls/hr 1X ONCE IRR ; Start 08/15/19 at 06:00; Stop 08/15/19 at 06:59; Status DC Potassium Acetate 55 meq/Magnesium Sulfate 20 meq/ Calcium Gluconate 10 meq/ Multivitamins 10 ml/Chromium/ Copper/Manganese/ Seleni/Zn 0.5 ml/ Insulin Human Regular 35 unit/ Total Parenteral Nutrition/Amino Acids/Dextrose/ Fat Emulsion Intravenous 1,920 ml @ 80 mls/hr TPN CONT IV Last administered on 08/14/19at 22:10; Start 08/14/19 at 22:00; Stop 08/15/19 at 21:59; Status DC Dexamethasone Sodium Phosphate (Decadron) 4 mg STK-MED ONCE .ROUTE ; Start 08/15/19 at 10:56; Stop 08/15/19 at 10:57; Status DC Ondansetron HCl (Zofran) 4 mg STK-MED ONCE .ROUTE ; Start 08/15/19 at 10:56; Stop 08/15/19 at 10:57; Status DC Rocuronium [place] (Zemuron) 50 mg STK-MED ONCE .ROUTE ; Start 08/15/19 at 10:56; Stop 08/15/19 at 10:57; Status DC Fentanyl Citrate (Fentanyl 2ml Vial) 100 mcg STK-MED ONCE .ROUTE ; Start 08/15/19 at 10:56; Stop 08/15/19 at 10:57; Status DC Bupivacaine HCl/ Epinephrine Bitart (Sensorcain-Epi 0.5%-1:616886 Mpf) 30 ml STK-MED ONCE .ROUTE Last administered on 08/15/19at 12:01; Start 08/15/19 at 10:58; Stop 08/15/19 at 10:58; Status DC Cellulose (Surgicel Hemostat 2x14) 1 each STK-MED ONCE .ROUTE ; Start 08/15/19 at 10:58; Stop 08/15/19 at 10:59; Status DC Iohexol (Omnipaque 300 Mg/ml) 50 ml STK-MED ONCE .ROUTE ; Start 08/15/19 at 10:58; Stop 08/15/19 at 10:59; Status DC Cellulose (Surgicel Hemostat 4x8) 1 each STK-MED ONCE .ROUTE ; Start 08/15/19 at 10:58; Stop 08/15/19 at 10:59; Status DC Bisacodyl (Dulcolax Supp) 10 mg STK-MED ONCE .ROUTE ; Start 08/15/19 at 10:59; Stop 08/15/19 at 10:59; Status DC Heparin Sodium (Porcine) 1000 unit/Sodium Chloride 1,001 ml @ 1,001 mls/hr 1X ONCE IRR ; Start 08/15/19 at 12:00; Stop 08/15/19 at 12:59; Status DC Propofol 20 ml @ As Directed STK-MED ONCE IV ; Start 08/15/19 at 11:05; Stop 08/15/19 at 11:05; Status DC Sevoflurane (Ultane) 90 ml STK-MED ONCE IH ; Start 08/15/19 at 11:05; Stop at 11:05; Status DC Sevoflurane (Ultane) 60 ml STK-MED ONCE IH ; Start 08/15/19 at 12:26; Stop 08/15/19 at 12:27; Status DC Propofol 20 ml @ As Directed STK-MED ONCE IV ; Start 08/15/19 at 12:26; Stop 08/15/19 at 12:27; Status DC Phenylephrine HCl (PHENYLEPHRINE in 0.9% NACL PF) 1 mg STK-MED ONCE IV ; Start 08/15/19 at 12:34; Stop 08/15/19 at 12:34; Status DC Heparin Sodium (Porcine) (Heparin Sodium) 5,000 unit Q12HR SQ Last administered on 08/24/19at 20:57; Start 08/15/19 at 21:00; Stop 08/25/19 at 09:59; Status DC Sodium Chloride (Normal Saline Flush) 3 ml QSHIFT PRN IV AFTER MEDS AND BLOOD DRAWS; Start 08/15/19 at 13:45 Naloxone HCl (Narcan) 0.4 mg PRN Q2MIN PRN IV SEE INSTRUCTIONS; Start 08/15/19 at 13:45 Sodium Chloride 1,000 ml @ 25 mls/hr Q24H IV Last administered on 09/13/19at 13:37; Start 08/15/19 at 13:37 Naloxone HCl (Narcan) 0.4 mg PRN Q2MIN PRN IV SEE INSTRUCTIONS; Start 08/15/19 at 14:30; Status UNV Sodium Chloride 1,000 ml @ 25 mls/hr Q24H IV ; Start 08/15/19 at 14:30; Status UNV Hydromorphone HCl 30 ml @ 0 mls/hr CONT PRN PRN IV PER PROTOCOL Last administered on 08/20/19at 16:08; Start 08/15/19 at 14:30; Stop 08/22/19 at 08:55; Status DC Potassium Acetate 55 meq/Magnesium Sulfate 20 meq/ Calcium Gluconate 10 meq/ Multivitamins 10 ml/Chromium/ Copper/Manganese/ Seleni/Zn 0.5 ml/ Insulin Human Regular 35 unit/ Total Parenteral Nutrition/Amino Acids/Dextrose/ Fat Emulsion Intravenous 1,920 ml @ 80 mls/hr TPN CONT IV Last administered on 08/15/19at 22:01; Start 08/15/19 at 22:00; Stop 08/16/19 at 21:59; Status DC Bumetanide (Bumex) 2 mg [id number] IV Last administered on 08/19/19at 13:50; Start 08/16/19 at 14:00; Stop 08/20/19 at 14:10; Status DC Meropenem 1 gm/ Sodium Chloride 100 ml @ 200 mls/hr Q8HRS IV Last administered on 09/09/19at 05:53; Start 08/16/19 at 14:00; Stop 09/09/19 at 09:31; Status DC Potassium Acetate 55 meq/Magnesium Sulfate 20 meq/ Calcium Gluconate 10 meq/ Multivitamins 10 ml/Chromium/ Copper/Manganese/ Seleni/Zn 0.5 ml/ Insulin Human Regular 35 unit/ Total Parenteral Nutrition/Amino Acids/Dextrose/ Fat Emulsion Intravenous 1,920 ml @ 80 mls/hr TPN CONT IV Last administered on 08/16/19at 22:02; Start 08/16/19 at 22:00; Stop 08/17/19 at 21:59; Status DC Hydromorphone HCl (Dilaudid Standard 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) 12 mg STK-MED ONCE IV ; Start 08/15/19 at 14:35; Stop 08/16/19 at 13:53; Status DC Artificial Tears (Artificial Tears) 1 drop PRN Q15MIN PRN OU DRY EYE Last administered on 09/11/19at 11:15; Start 08/17/19 at 05:30 Hydromorphone HCl (Dilaudid Standard 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) 12 mg STK-MED ONCE IV ; Start 08/16/19 at 12:05; Stop 08/17/19 at 09:15; Status DC Potassium Acetate 65 meq/Magnesium Sulfate 20 meq/ Calcium Gluconate 10 meq/ Multivitamins 10 ml/Chromium/ Copper/Manganese/ Seleni/Zn 0.5 ml/ Insulin Human Regular 30 unit/ Total Parenteral Nutrition/Amino Acids/Dextrose/ Fat Emulsion Intravenous 1,920 ml @ 80 mls/hr TPN CONT IV Last administered on 08/17/19at 22:22; Start 08/17/19 at 22:00; Stop 08/18/19 at 21:59; Status DC Cyclobenzaprine HCl (Flexeril) 10 mg PRN Q6HRS PRN PO MUSCLE SPASMS; Start 08/18/19 at 10:45 Potassium Acetate 55 meq/Magnesium Sulfate 20 meq/ Calcium Gluconate 10 meq/ Multivitamins 10 ml/Chromium/ Copper/Manganese/ Seleni/Zn 0.5 ml/ Insulin Human Regular 30 unit/ Total Parenteral Nutrition/Amino Acids/Dextrose/ Fat Emulsion Intravenous 1,920 ml @ 80 mls/hr TPN CONT IV Last administered on 08/19/19at 01:00; Start 08/18/19 at 22:00; Stop 08/19/19 at 21:59; Status DC Magnesium Sulfate 50 ml @ 25 mls/hr 1X ONCE IV Last administered on 08/18/19at 17:18; Start 08/18/19 at 12:45; Stop 08/18/19 at 14:44; Status DC Potassium Chloride/Water 100 ml @ 100 mls/hr 1X ONCE IV Last administered on 08/19/19at 11:27; Start 08/19/19 at 12:00; Stop 08/19/19 at 12:59; Status DC Hydromorphone HCl (Dilaudid Standard 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) 12 mg STK-MED ONCE IV ; Start 08/17/19 at 10:50; Stop 08/19/19 at 11:02; Status DC Hydromorphone HCl (Dilaudid Standard 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) 12 mg STK-MED ONCE IV ; Start 08/18/19 at 13:47; Stop 08/19/19 at 11:03; Status DC Potassium Acetate 30 meq/Magnesium Sulfate 20 meq/ Calcium Gluconate 10 meq/ Multivitamins 10 ml/Chromium/ Copper/Manganese/ Seleni/Zn 0.5 ml/ Insulin Human Regular 30 unit/ Potassium Chloride 30 meq/ Total Parenteral Nutrition/Amino Acids/Dextrose/ Fat Emulsion Intravenous 1,920 ml @ 80 mls/hr TPN CONT IV Last administered on 08/19/19at 22:34; Start 08/19/19 at 22:00; Stop 08/20/19 at 21:59; Status DC Potassium Chloride/Water 100 ml @ 100 mls/hr Q1H IV Last administered on 08/20/19at 13:05; Start 08/20/19 at 07:00; Stop 08/20/19 at 10:59; Status DC Magnesium Sulfate 50 ml @ 25 mls/hr 1X ONCE IV Last administered on 08/20/19at 10:34; Start 08/20/19 at 10:30; Stop 08/20/19 at 12:29; Status DC Potassium Chloride 75 meq/ Magnesium Sulfate 20 meq/Calcium Gluconate 10 meq/ Multivitamins 10 ml/Chromium/ Copper/Manganese/ Seleni/Zn 0.5 ml/ Insulin Human Regular 30 unit/ Total Parenteral Nutrition/Amino Acids/Dextrose/ Fat Emulsion Intravenous 1,920 ml @ 80 mls/hr TPN CONT IV Last administered on 08/20/19at 21:51; Start 08/20/19 at 22:00; Stop 08/21/19 at 22:00; Status DC Potassium Chloride 75 meq/ Magnesium Sulfate 20 meq/Calcium Gluconate 10 meq/ Multivitamins 10 ml/Chromium/ Copper/Manganese/ Seleni/Zn 0.5 ml/ Insulin Human Regular 25 unit/ Total Parenteral Nutrition/Amino Acids/Dextrose/ Fat Emulsion Intravenous 1,920 ml @ 80 mls/hr TPN CONT IV Last administered on 08/21/19at 22:04; Start 08/21/19 at 22:00; Stop 08/22/19 at 21:59; Status DC Hydromorphone HCl (Dilaudid) 0.4 mg PRN Q4HRS PRN IVP PAIN Last administered on 08/22/19at 10:57; Start 08/22/19 at 09:00; Stop 08/22/19 at 18:59; Status DC Micafungin Sodium 100 mg/Dextrose 100 ml @ 100 mls/hr Q24H IV Last administered on 09/13/19at 12:17; Start 08/22/19 at 11:00 Daptomycin 485 mg/ Sodium Chloride 50 ml @ 100 mls/hr Q24H IV Last administered on 08/29/19at 13:10; Start 08/22/19 at 11:00; Stop 08/30/19 at 07:44; Status DC Potassium Chloride 75 meq/ Magnesium Sulfate 15 meq/Calcium Gluconate 8 meq/ Multivitamins 10 ml/Chromium/ Copper/Manganese/ Seleni/Zn 0.5 ml/ Insulin Human Regular 25 unit/ Total Parenteral Nutrition/Amino Acids/Dextrose/ Fat Emulsion Intravenous 1,920 ml @ 80 mls/hr TPN CONT IV Last administered on 08/22/19at 23:08; Start 08/22/19 at 22:00; Stop 08/23/19 at 21:59; Status DC Haloperidol Lactate (Haldol Inj) 3 mg 1X ONCE IVP Last administered on 08/22/19at 14:37; Start 08/22/19 at 14:30; Stop 08/22/19 at 14:31; Status DC Hydromorphone HCl (Dilaudid) 1 mg PRN Q4HRS PRN IVP PAIN Last administered on 09/05/19at 06:25; Start 08/22/19 at 19:00; Stop 09/05/19 at 17:10; Status DC Potassium Chloride 75 meq/ Magnesium Sulfate 15 meq/Calcium Gluconate 8 meq/ Multivitamins 10 ml/Chromium/ Copper/Manganese/ Seleni/Zn 0.5 ml/ Insulin Human Regular 20 unit/ Total Parenteral Nutrition/Amino Acids/Dextrose/ Fat Emulsion Intravenous 1,920 ml @ 80 mls/hr TPN CONT IV Last administered on 08/23/19at 22:10; Start 08/23/19 at 22:00; Stop 08/24/19 at 21:59; Status DC Lidocaine HCl (Buffered Lidocaine 1%) 3 ml STK-MED ONCE .ROUTE ; Start 08/24/19 at 11:31; Stop 08/24/19 at 11:31; Status DC Lidocaine HCl (Buffered Lidocaine 1%) 3 ml STK-MED ONCE .ROUTE ; Start 08/24/19 at 12:28; Stop 08/24/19 at 12:29; Status DC Lidocaine HCl (Buffered Lidocaine 1%) 6 ml 1X ONCE INJ Last administered on 08/24/19at 12:53; Start 08/24/19 at 12:45; Stop 08/24/19 at 12:46; Status DC Potassium Chloride 75 meq/ Magnesium Sulfate 15 meq/Calcium Gluconate 8 meq/ Multivitamins 10 ml/Chromium/ Copper/Manganese/ Seleni/Zn 0.5 ml/ Insulin Human Regular 20 unit/ Total Parenteral Nutrition/Amino Acids/Dextrose/ Fat Emulsion Intravenous 1,920 ml @ 80 mls/hr TPN CONT IV Last administered on 08/24/19at 22:00; Start 08/24/19 at 22:00; Stop 08/25/19 at 21:59; Status DC Potassium Chloride 75 meq/ Magnesium Sulfate 15 meq/Calcium Gluconate 8 meq/ Multivitamins 10 ml/Chromium/ Copper/Manganese/ Seleni/Zn 0.5 ml/ Insulin Human Regular 15 unit/ Total Parenteral Nutrition/Amino Acids/Dextrose/ Fat Emulsion Intravenous 1,920 ml @ 80 mls/hr TPN CONT IV Last administered on 08/25/19at 22:28; Start 08/25/19 at 22:00; Stop 08/26/19 at 21:59; Status DC Vecuronium Sheldon (Norcuron Bolus) 6 mg PRN Q6HRS PRN IV VENT ASYNCHRONY; Start 08/25/19 at 19:15; Stop 08/25/19 at 19:35; Status DC Bumetanide (Bumex) 2 mg 1X ONCE IV Last administered on 08/25/19at 22:09; Start 08/25/19 at 19:45; Stop 08/25/19 at 19:46; Status DC Lidocaine HCl (Buffered Lidocaine 1%) 3 ml STK-MED ONCE .ROUTE ; Start 08/26/19 at 07:59; Stop 08/26/19 at 07:59; Status DC Midazolam HCl (Versed) 5 mg STK-MED ONCE .ROUTE ; Start 08/26/19 at 08:36; Stop 08/26/19 at 08:36; Status DC Fentanyl Citrate (Fentanyl 5ml Vial) 250 mcg STK-MED ONCE .ROUTE ; Start 08/26/19 at 08:36; Stop 08/26/19 at 08:37; Status DC Lidocaine HCl (Buffered Lidocaine 1%) 3 ml 1X ONCE IJ Last administered on 08/26/19at 09:30; Start 08/26/19 at 09:15; Stop 08/26/19 at 09:16; Status DC Midazolam HCl (Versed) 5 mg 1X ONCE IV Last administered on 08/26/19at 09:30; Start 08/26/19 at 09:15; Stop 08/26/19 at 09:16; Status DC Fentanyl Citrate (Fentanyl 5ml Vial) 250 mcg 1X ONCE IV Last administered on 08/26/19at 09:30; Start 08/26/19 at 09:15; Stop 08/26/19 at 09:16; Status DC Bumetanide (Bumex) 2 mg DAILY IV Last administered on 09/05/19at 08:07; Start 08/26/19 at 10:00; Stop 09/05/19 at 17:15; Status DC Potassium Chloride 75 meq/ Magnesium Sulfate 15 meq/ Multivitamins 10 ml/Chromium/ Copper/Manganese/ Seleni/Zn 0.5 ml/ Insulin Human Regular 15 unit/ Total Parenteral Nutrition/Amino Acids/Dextrose/ Fat Emulsion Intravenous 1,920 ml @ 80 mls/hr TPN CONT IV Last administered on 08/26/19at 21:59; Start 08/26/19 at 22:00; Stop 08/27/19 at 21:59; Status DC Metoclopramide HCl (Reglan Vial) 10 mg PRN Q3HRS PRN IVP NAUSEA/VOMITING-3rd choice Last administered on 09/01/19at 04:25; Start 08/27/19 at 16:45 Potassium Chloride 75 meq/ Magnesium Sulfate 15 meq/ Multivitamins 10 ml/Chromium/ Copper/Manganese/ Seleni/Zn 0.5 ml/ Insulin Human Regular 15 unit/ Total Parenteral Nutrition/Amino Acids/Dextrose/ Fat Emulsion Intravenous 1,920 ml @ 80 mls/hr TPN CONT IV Last administered on 08/27/19at 22:41; Start 08/27/19 at 22:00; Stop 08/28/19 at 21:59; Status DC Magnesium Sulfate 50 ml @ 25 mls/hr 1X ONCE IV Last administered on 08/28/19at 10:44; Start 08/28/19 at 09:00; Stop 08/28/19 at 10:59; Status DC Potassium Chloride/Water 100 ml @ 100 mls/hr 1X ONCE IV Last administered on 08/28/19at 09:37; Start 08/28/19 at 09:00; Stop 08/28/19 at 09:59; Status DC Duloxetine HCl (Cymbalta) 30 mg DAILY PO Last administered on 08/29/19at 09:48; Start 08/28/19 at 14:00; Stop 08/31/19 at 10:25; Status DC Potassium Chloride 80 meq/ Magnesium Sulfate 20 meq/ Multivitamins 10 ml/Chromium/ Copper/Manganese/ Seleni/Zn 0.5 ml/ Insulin Human Regular 15 unit/ Total Parenteral Nutrition/Amino Acids/Dextrose/ Fat Emulsion Intravenous 1,920 ml @ 80 mls/hr TPN CONT IV Last administered on 08/28/19at 21:42; Start 08/28/19 at 22:00; Stop 08/29/19 at 21:59; Status DC Potassium Chloride 80 meq/ Magnesium Sulfate 20 meq/ Multivitamins 10 ml/Chromium/ Copper/Manganese/ Seleni/Zn 0.5 ml/ Insulin Human Regular 15 unit/ Total Parenteral Nutrition/Amino Acids/Dextrose/ Fat Emulsion Intravenous 1,920 ml @ 80 mls/hr TPN CONT IV Last administered on 08/29/19at 22:20; Start 08/29/19 at 22:00; Stop 08/30/19 at 21:59; Status DC Lidocaine HCl (Buffered Lidocaine 1%) 3 ml STK-MED ONCE .ROUTE ; Start 08/30/19 at 09:54; Stop 08/30/19 at 09:55; Status DC Hydromorphone HCl (Dilaudid Standard 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) 12 mg STK-MED ONCE IV ; Start 08/19/19 at 15:50; Stop 08/30/19 at 11:24; Status DC Potassium Chloride 80 meq/ Magnesium Sulfate 20 meq/ Multivitamins 10 ml/Chromium/ Copper/Manganese/ Seleni/Zn 0.5 ml/ Insulin Human Regular 15 unit/ Total Parenteral Nutrition/Amino Acids/Dextrose/ Fat Emulsion Intravenous 1,920 ml @ 80 mls/hr TPN CONT IV Last administered on 08/30/19at 21:40; Start 08/30/19 at 22:00; Stop 08/31/19 at 21:59; Status DC Lidocaine HCl (Buffered Lidocaine 1%) 6 ml 1X ONCE INJ Last administered on 08/30/19at 14:15; Start 08/30/19 at 14:15; Stop 08/30/19 at 14:16; Status DC Potassium Chloride 80 meq/ Magnesium Sulfate 20 meq/ Multivitamins 10 ml/Chromium/ Copper/Manganese/ Seleni/Zn 1 ml/ Insulin Human Regular 15 unit/ Total Parenteral Nutrition/Amino Acids/Dextrose/ Fat Emulsion Intravenous 1,920 ml @ 80 mls/hr TPN CONT IV Last administered on 08/31/19at 22:04; Start 08/31/19 at 22:00; Stop 09/01/19 at 21:59; Status DC Potassium Chloride/Water 100 ml @ 100 mls/hr 1X ONCE IV Last administered on 09/01/19at 11:34; Start 09/01/19 at 11:00; Stop 09/01/19 at 11:59; Status DC Potassium Chloride 90 meq/ Magnesium Sulfate 20 meq/ Multivitamins 10 ml/Chromium/ Copper/Manganese/ Seleni/Zn 1 ml/ Insulin Human Regular 15 unit/ Total Parenteral Nutrition/Amino Acids/Dextrose/ Fat Emulsion Intravenous 1,920 ml @ 80 mls/hr TPN CONT IV Last administered on 09/01/19at 22:57; Start 09/01/19 at 22:00; Stop 09/02/19 at 21:59; Status DC Potassium Chloride 90 meq/ Magnesium Sulfate 20 meq/ Multivitamins 10 ml/Chromium/ Copper/Manganese/ Seleni/Zn 1 ml/ Insulin Human Regular 15 unit/ Total Parenteral Nutrition/Amino Acids/Dextrose/ Fat Emulsion Intravenous 1,920 ml @ 80 mls/hr TPN CONT IV Last administered on 09/02/19at 22:48; Start 09/02/19 at 22:00; Stop 09/03/19 at 21:59; Status DC Potassium Chloride 90 meq/ Magnesium Sulfate 20 meq/ Multivitamins 10 ml/Chromium/ Copper/Manganese/ Seleni/Zn 1 ml/ Insulin Human Regular 15 unit/ Total Parenteral Nutrition/Amino Acids/Dextrose/ Fat Emulsion Intravenous 1,890 ml @ 78.75 mls/ hr TPN CONT IV Last administered on 09/03/19at 22:15; Start 09/03/19 at 22:00; Stop 09/04/19 at 21:59; Status DC Linezolid/Dextrose 300 ml @ 300 mls/hr Q12HR IV Last administered on 09/06/19at 21:08; Start 09/04/19 at 09:00; Stop 09/07/19 at 08:11; Status DC Daptomycin 450 mg/ Sodium Chloride 50 ml @ 100 mls/hr Q24H IV Last administered on 09/07/19at 09:25; Start 09/04/19 at 09:00; Stop 09/08/19 at 08:30; Status DC Potassium Chloride 90 meq/ Magnesium Sulfate 20 meq/ Multivitamins 10 ml/Chromium/ Copper/Manganese/ Seleni/Zn 1 ml/ Insulin Human Regular 15 unit/ Total Parenteral Nutrition/Amino Acids/Dextrose/ Fat Emulsion Intravenous 1,890 ml @ 78.75 mls/ hr TPN CONT IV Last administered on 09/04/19at 21:34; Start 09/04/19 at 22:00; Stop 09/05/19 at 21:59; Status DC Lorazepam (Ativan Inj) 2 mg STK-MED ONCE .ROUTE ; Start 09/04/19 at 14:58; Stop 09/04/19 at 14:58; Status DC Metoprolol Tartrate (Lopressor Vial) 5 mg 1X ONCE IVP Last administered on 09/04/19at 15:31; Start 09/04/19 at 15:15; Stop 09/04/19 at 15:16; Status DC Lorazepam (Ativan Inj) 2 mg 1X ONCE IVP Last administered on 09/04/19at 15:30; Start 09/04/19 at 15:15; Stop 09/04/19 at 15:16; Status DC Enoxaparin Sodium (Lovenox 40mg Syringe) 40 mg Q24H SQ Last administered on 09/13/19at 17:53; Start 09/04/19 at 17:00 Lorazepam (Ativan Inj) 1 mg PRN Q4HRS PRN IVP ANXIETY / AGITATION MILD-MOD Last administered on 09/10/19at 04:21; Start 09/04/19 at 19:15 Lorazepam (Ativan Inj) 2 mg PRN Q4HRS PRN IVP ANXIETY / AGITATION SEVERE Last administered on 09/13/19at 23:23; Start 09/04/19 at 19:15 Fentanyl Citrate (Fentanyl 2ml Vial) 50 mcg PRN Q4HRS PRN IVP SEVERE PAIN Last administered on 09/14/19at 06:11; Start 09/05/19 at 13:15 Fentanyl Citrate (Fentanyl 2ml Vial) 25 mcg PRN Q4HRS PRN IVP MODERATE PAIN Last administered on 09/11/19at 06:36; Start 09/05/19 at 13:15 Potassium Chloride 90 meq/ Magnesium Sulfate 20 meq/ Multivitamins 10 ml/Chromium/ Copper/Manganese/ Seleni/Zn 1 ml/ Insulin Human Regular 15 unit/ Total Parenteral Nutrition/Amino Acids/Dextrose/ Fat Emulsion Intravenous 1,890 ml @ 78.75 mls/ hr TPN CONT IV Last administered on 09/05/19at 22:18; Start 09/05/19 at 22:00; Stop 09/06/19 at 21:59; Status DC Furosemide (Lasix) 40 mg 1X ONCE IVP Last administered on 09/05/19at 21:51; Start 09/05/19 at 21:45; Stop 09/05/19 at 21:48; Status DC Albumin Human 100 ml @ 100 mls/hr 1X PRN PRN IV SEE COMMENTS; Start 09/06/19 at 01:30 Furosemide (Lasix) 40 mg [id number] IVP Last administered on 09/14/19at 08:16; Start 09/06/19 at 14:00 Potassium Chloride 90 meq/ Magnesium Sulfate 20 meq/ Multivitamins 10 ml/Chromium/ Copper/Manganese/ Seleni/Zn 1 ml/ Insulin Human Regular 15 unit/ Total Parenteral Nutrition/Amino Acids/Dextrose/ Fat Emulsion Intravenous 1,800 ml @ 75 mls/hr TPN CONT IV Last administered on 09/06/19at 22:31; Start 09/06/19 at 22:00; Stop 09/07/19 at 21:59; Status DC Potassium Chloride 90 meq/ Magnesium Sulfate 20 meq/ Multivitamins 10 ml/Chromium/ Copper/Manganese/ Seleni/Zn 1 ml/ Insulin Human Regular 15 unit/ Total Parenteral Nutrition/Amino Acids/Dextrose/ Fat Emulsion Intravenous 1,800 ml @ 75 mls/hr TPN CONT IV Last administered on 09/07/19at 22:28; Start 09/07/19 at 22:00; Stop 09/08/19 at 21:59; Status DC Potassium Chloride 110 meq/ Magnesium Sulfate 20 meq/ Multivitamins 10 ml/Chromium/ Copper/Manganese/ Seleni/Zn 1 ml/ Insulin Human Regular 15 unit/ Total Parenteral Nutrition/Amino Acids/Dextrose/ Fat Emulsion Intravenous 1,800 ml @ 75 mls/hr TPN CONT IV Last administered on 09/08/19at 22:01; Start 08/19 05/09 at 22:00; Stop 09/09/19 at 21:59; Status DC Saliva Substitute (Biotene Moisturizing Mouth) 2 spray PRN Q15MIN PRN PO DRY MOUTH; Start 09/08/19 at 11:00 Potassium Chloride 110 meq/ Magnesium Sulfate 20 meq/ Multivitamins 10 ml/Chromium/ Copper/Manganese/ Seleni/Zn 1 ml/ Insulin Human Regular 15 unit/ Total Parenteral Nutrition/Amino Acids/Dextrose/ Fat Emulsion Intravenous 1,800 ml @ 75 mls/hr TPN CONT IV Last administered on 09/09/19at 22:21; Start 09/09/19 at 22:00; Stop 09/10/19 at 21:59; Status DC Potassium Chloride 110 meq/ Magnesium Sulfate 20 meq/ Multivitamins 10 ml/Chromium/ Copper/Manganese/ Seleni/Zn 1 ml/ Insulin Human Regular 15 unit/ Total Parenteral Nutrition/Amino Acids/Dextrose/ Fat Emulsion Intravenous 1,800 ml @ 75 mls/hr TPN CONT IV Last administered on 09/10/19at 22:04; Start 09/10/19 at 22:00; Stop 09/11/19 at 21:59; Status DC Potassium Chloride 110 meq/ Magnesium Sulfate 20 meq/ Multivitamins 10 ml/Chromium/ Copper/Manganese/ Seleni/Zn 1 ml/ Insulin Human Regular 15 unit/ To anthony Parenteral Nutrition/Amino Acids/Dextrose/ Fat Emulsion Intravenous 1,800 ml @ 75 mls/hr TPN CONT IV Last administered on 09/11/19at 22:48; Start 09/11/19 at 22:00; Stop 09/12/19 at 21:59; Status DC Potassium Chloride 70 meq/ Magnesium Sulfate 20 meq/ Multivitamins 10 ml/Chromium/ Copper/Manganese/ Seleni/Zn 1 ml/ Insulin Human Regular 15 unit/ Total Parenteral Nutrition/Amino Acids/Dextrose/ Fat Emulsion Intravenous 1,800 ml @ 75 mls/hr TPN CONT IV Last administered on 09/12/19at 21:39; Start 08/19 09/06 at 22:00; Stop 09/13/19 at 21:59; Status DC Meropenem 500 mg/ Sodium Chloride 50 ml @ 100 mls/hr Q6HRS IV Last administe red on 09/14/19at 06:02; Start 09/12/19 at 18:00 Barium Sulfate (Varibar Thin Liquid Apple) 148 gm 1X ONCE PO ; Start 09/13/19 a t 11:45; Stop 5/26/20 at 11:49; Status DC Potassium Chloride 70 meq/ Magnesium Sulfate 20 meq/ Multivitamins 10 ml/Chromium/ Copper/Manganese/ Seleni/Zn 1 ml/ Insulin Human Regular 15 unit/ Total Parenteral Nutrition/Amino Acids/Dextrose/ Fat Emulsion Intravenous 1,800 ml @ 75 mls/hr TPN CONT IV Last administered on 09/13/19at 22:27; Start 09/13/19 at 22:00; Stop 09/14/19 at 21:59 Active Scripts Active Reported Bisoprolol Fumarate 5 Mg Tablet 10 Mg PO DAILY Vitals/I & O Vital Sign - Last 24 Hours 09/13/19 09/13/19 09/13/19 09/13/19 10:00 10:30 10:51 11:00 Pulse 125 134 Resp 24 40 26 B/P (MAP) 135/68 (90) 100/69 (79) Pulse Ox 99 99 99 99 O2 Delivery Tracheal Collar Nasal Cannula Tracheal Collar O2 Flow Rate 8.0 3.0 8.0 8.0 09/13/19 09/13/19 09/13/19 09/13/19 11:21 11:30 12:00 12:00 Temp 98.9 98.9 Pulse 115 Resp 25 20 B/P (MAP) Pulse Ox 97 100 99 O2 Delivery Tracheal Collar Tracheal Collar Trach Collar Tracheal Collar O2 Flow Rate 2.0 8.0 8.0 09/13/19 09/13/19 09/13/19 09/13/19 13:00 13:27 14:00 15:00 Pulse 110 133 121 Resp 20 36 25 B/P (MAP) 109/72 (84) 131/83 (99) 119/78 (92) Pulse Ox 99 99 99 99 O2 Delivery Tracheal Collar Nasal Cannula Tracheal Collar Tracheal Collar O2 Flow Rate 8.0 3.0 8.0 8.0 09/13/19 09/13/19 09/13/19 09/13/19 16:00 16:00 16:26 16:56 Temp 98.8 98.8 Pulse 118 Resp 21 24 26 B/P (MAP) 121/78 (92) Pulse Ox 99 99 98 O2 Delivery Tracheal Collar Trach Collar Tracheal Collar Nasal Cannula O2 Flow Rate 8.0 8.0 8.0 3.0 09/13/19 09/13/19 09/13/19 09/13/19 17:00 18:00 19:00 19:45 Pulse 138 110 117 Resp 30 22 15 B/P (MAP) 135/75 (95) 125/71 (89) 108/74 (85) Pulse Ox 99 99 99 96 O2 Delivery Tracheal Collar Tracheal Collar Tracheal Collar Tracheal Collar O2 Flow Rate 8.0 8.0 8.0 09/13/19 09/13/19 09/13/19 09/13/19 20:00 20:00 21:00 21:01 Temp 98.4 98.4 Pulse 118 120 Resp 16 16 27 B/P (MAP) 102/62 (75) 112/68 (83) Pulse Ox 99 99 99 O2 Delivery Tracheal Collar Trach Collar Tracheal Collar O2 Flow Rate 8.0 8.0 8.0 8.0 09/13/19 09/13/19 09/13/19 09/14/19 21:31 22:00 23:00 00:00 Pulse 112 121 Resp 16 23 26 B/P (MAP) 108/63 (78) 107/67 (80) Pulse Ox 99 99 94 O2 Delivery Tracheal Collar Tracheal Collar Trach Collar O2 Flow Rate 8.0 8.0 8.0 8.0 09/14/19 09/14/19 09/14/19 09/14/19 00:01 01:00 02:00 03:00 Temp 98.1 98.1 Pulse 112 115 113 124 Resp 24 34 14 30 B/P (MAP) 118/64 (82) 97/59 (72) 97/48 (64) 106/56 (73) Pulse Ox 97 94 96 96 O2 Delivery Tracheal Collar Tracheal Collar Room Air Room Air O2 Flow Rate 8.0 8.0 09/14/19 09/14/19 09/14/19 09/14/19 04:00 04:00 05:00 06:00 Temp 98.1 98.1 Pulse 121 120 120 Resp 30 26 26 B/P (MAP) 127/60 (82) 107/70 (82) 124/70 (88) Pulse Ox 94 94 94 O2 Delivery Trach Collar Room Air Room Air Room Air O2 Flow Rate 8.0 09/14/19 09/14/19 09/14/19 09/14/19 06:11 06:41 07:00 08:00 Pulse 124 Resp 27 26 25 B/P (MAP) 117/61 (79) Pulse Ox 94 94 95 O2 Delivery Room Air Room Air Room Air Room Air 09/14/19 09/14/19 09/14/19 08:00 08:12 09:00 Temp 98.7 98.7 Pulse 129 136 Resp 33 26 B/P (MAP) 130/69 (89) 122/70 (87) Pulse Ox 95 94 96 O2 Delivery Room Air Room Air Room Air Intake and Output 09/13/19 09/13/19 09/14/19 15:00 23:00 07:00 Intake Total 1195 ml 928.0 ml Output Total 790 ml 455 ml 430 ml Balance -790 ml 740 ml 498.0 ml Hemodynamically unstable?: No Is patient in severe pain?: No Is NPO status required?: Yes DAVIN LANDEROS MD September 14, 2019 09:35
--- NOTE | 2019-09-14 10:05 | PDOC ---
SURGICAL PROGRESS NOTE Subjective Pt with c/o not being able to breathe with valve on Vital Signs Vital Signs Date Time Temp Pulse Resp B/P (MAP) Pulse Ox O2 Delivery O2 Flow Rate FiO2 09/14/19 09:00 136 26 122/70 (87) 96 Room Air 09/14/19 08:12 98.7 98.7 09/14/19 04:00 I&O Intake and Output 09/14/19 07:00 Intake Total 2123.0 ml Output Total 1675 ml Balance 448.0 ml IV Total 2123.0 ml Output Urine Total 1625 ml Drainage Total 50 ml General: Alert, Cooperative Abdomen: Soft Labs Laboratory Tests Test 09/12/19 17:46 09/12/19 23:55 09/13/19 05:45 09/13/19 06:00 Glucose (Fingerstick) 173 mg/dL (70-99) 166 mg/dL (70-99) 170 mg/dL (70-99) White Blood Count 11.4 x10^3/uL (4.0-11.0) Red Blood Count 2.80 x10^6/uL (3.50-5.40) Hemoglobin 8.0 g/dL (12.0-15.5) Hematocrit 24.4 % (36.0-47.0) Mean Corpuscular Volume 87 fL (79-100) Mean Corpuscular Hemoglobin 28 pg (25-35) Mean Corpuscular Hemoglobin Concent 33 g/dL (31-37) Red Cell Distribution Width 19.5 % (11.5-14.5) Platelet Count 325 x10^3/uL (140-400) Neutrophils (%) (Auto) 72 % (31-73) Lymphocytes (%) (Auto) 17 % (24-48) Monocytes (%) (Auto) 9 % (0-9) Eosinophils (%) (Auto) 2 % (0-3) Basophils (%) (Auto) 0 % (0-3) Neutrophils # (Auto) 8.2 x10^3/uL (1.8-7.7) Lymphocytes # (Auto) 2.0 x10^3/uL (1.0-4.8) Monocytes # (Auto) 1.0 x10^3/uL (0.0-1.1) Eosinophils # (Auto) 0.2 x10^3/uL (0.0-0.7) Basophils # (Auto) 0.0 x10^3/uL (0.0-0.2) Sodium Level 134 mmol/L (136-145) Potassium Level 4.6 mmol/L (3.5-5.1) Chloride Level 97 mmol/L (98-107) Carbon Dioxide Level 33 mmol/L (21-32) Anion Gap 4 (6-14) Blood Urea Nitrogen 28 mg/dL (7-20) Creatinine 0.9 mg/dL (0.6-1.0) Estimated GFR (Cockcroft-Gault) 66.5 Glucose Level 183 mg/dL (70-99) Calcium Level 10.0 mg/dL (8.5-10.1) Test 09/13/19 17:52 09/13/19 23:28 09/14/19 06:07 Glucose (Fingerstick) 182 mg/dL (70-99) 161 mg/dL (70-99) 142 mg/dL (70-99) Laboratory Tests Test 09/13/19 17:52 09/13/19 23:28 09/14/19 06:07 Glucose (Fingerstick) 182 mg/dL (70-99) 161 mg/dL (70-99) 142 mg/dL (70-99) Problem List Problems Medical Problems: (1) Acute pancreatitis Status: Acute (2) Cholelithiasis Status: Acute Assessment/Plan s/p lap exp cont supportive care DAVON SIMMS MD September 14, 2019 10:05
--- NOTE | 2019-09-14 10:06 | PDOC ---
PULMONARY PROGRESS NOTES Subjective Patient intubated on 07/10 , s/p trach 4/6, Remains on TS Denies SOB or increased cough, Vitals Vital Signs Date Time Temp Pulse Resp B/P (MAP) Pulse Ox O2 Delivery O2 Flow Rate FiO2 09/14/19 09:00 136 26 122/70 (87) 96 Room Air 09/14/19 08:12 98.7 98.7 09/14/19 04:00 ROS: No Chest Pain, No Abdominal Pain, No Increase Cough General: Alert, No acute distress HEENT: Other (trach midline ) Lungs: Other (Good air movement but having a lot of productive sputum from her tracheostomy site) Cardiovascular: S1, S2 Abdomen: Soft, Non-tender Neuro Exam: Alert Extremities: Other (+3 generalized edema ) Skin: Warm, Dry Labs Laboratory Tests Test 09/12/19 17:46 09/12/19 23:55 09/13/19 05:45 09/13/19 06:00 Glucose (Fingerstick) 173 mg/dL (70-99) 166 mg/dL (70-99) 170 mg/dL (70-99) White Blood Count 11.4 x10^3/uL (4.0-11.0) Red Blood Count 2.80 x10^6/uL (3.50-5.40) Hemoglobin 8.0 g/dL (12.0-15.5) Hematocrit 24.4 % (36.0-47.0) Mean Corpuscular Volume 87 fL (79-100) Mean Corpuscular Hemoglobin 28 pg (25-35) Mean Corpuscular Hemoglobin Concent 33 g/dL (31-37) Red Cell Distribution Width 19.5 % (11.5-14.5) Platelet Count 325 x10^3/uL (140-400) Neutrophils (%) (Auto) 72 % (31-73) Lymphocytes (%) (Auto) 17 % (24-48) Monocytes (%) (Auto) 9 % (0-9) Eosinophils (%) (Auto) 2 % (0-3) Basophils (%) (Auto) 0 % (0-3) Neutrophils # (Auto) 8.2 x10^3/uL (1.8-7.7) Lymphocytes # (Auto) 2.0 x10^3/uL (1.0-4.8) Monocytes # (Auto) 1.0 x10^3/uL (0.0-1.1) Eosinophils # (Auto) 0.2 x10^3/uL (0.0-0.7) Basophils # (Auto) 0.0 x10^3/uL (0.0-0.2) Sodium Level 134 mmol/L (136-145) Potassium Level 4.6 mmol/L (3.5-5.1) Chloride Level 97 mmol/L (98-107) Carbon Dioxide Level 33 mmol/L (21-32) Anion Gap 4 (6-14) Blood Urea Nitrogen 28 mg/dL (7-20) Creatinine 0.9 mg/dL (0.6-1.0) Estimated GFR (Cockcroft-Gault) 66.5 Glucose Level 183 mg/dL (70-99) Calcium Level 10.0 mg/dL (8.5-10.1) Test 09/13/19 17:52 09/13/19 23:28 09/14/19 06:07 Glucose (Fingerstick) 182 mg/dL (70-99) 161 mg/dL (70-99) 142 mg/dL (70-99) Laboratory Tests Test 09/13/19 17:52 09/13/19 23:28 09/14/19 06:07 Glucose (Fingerstick) 182 mg/dL (70-99) 161 mg/dL (70-99) 142 mg/dL (70-99) Medications Active Scripts Medications Dose Route/Sig Max Daily Dose Days Date Category Bisoprolol Fumarate 5 Mg Tablet 10 Mg PO DAILY 07/04/19 Reported Impression . IMPRESSION: 1. Acute hypoxemic respiratory failure secondary to ARDS status post trach, 2. Gallstone pancreatitis 3. Severe metabolic acidosis.stable 4. Acute kidney injury-stable, Off HD-- continue to improve 5. Acute gallstone pancreatitis. 6. Hypoalbuminemia. 7. Moderate persistent effusions, s/p left thora 08/29 8. Fever- Per ID, per surgery--resolved 9. Chronic anemia 10. Covid 19 testing negative 11. Moderate to large ascites-S/P paracentisis 12.S/P paracentisis with 4 liters removed on 08/03/19 13. S/P IR drain placement on 08/26/2019 Plan . 1.Continue supplemental oxygen via trach shield-- PMV/capping as tolerated 2. s/p thoracentesis, 08/29, 3 litres removed 3. Follow surgery recs-- S/P 3 drain placed in IR on 08/26/2019 4. Follow ID recs for ABX 5. Follow nephrology recs 6. Continue TPN DVT/GI PPX: heparin SQ/ protonix D/W RN and RT, CODE:FULL VINAAYK LANDRUM MD September 14, 2019 10:06
--- NOTE | 2019-09-14 10:45 | NUR ---
SS following up with discharge planning. SS reviewed pt chart and discussed with RN. Pt now on room air and approved for honey thick liquids. Pt improving with PT/OT. Pt remains on TPN at this time and has KAYLIN drains x3. Pt currently on IV Zosyn. SS left voicemail for pt's daughter, Norma, , to discuss discharge planning. SS will continue to follow for discharge planning.
--- NOTE | 2019-09-14 11:01 | PDOC ---
G I PROGRESS NOTE Subjective Weak. Still issues with dyspnea. Physical Exam Lungs with diminished sounds. RRR, tachy. Soft/doughy. Diminished bowel sounds. 3 drains with brownish fluid. Review of Relevant I have reviewed the following items kolby (where applicable) has been applied. Labs Laboratory Tests Test 09/12/19 17:46 09/12/19 23:55 09/13/19 05:45 09/13/19 06:00 Glucose (Fingerstick) 173 mg/dL (70-99) 166 mg/dL (70-99) 170 mg/dL (70-99) White Blood Count 11.4 x10^3/uL (4.0-11.0) Red Blood Count 2.80 x10^6/uL (3.50-5.40) Hemoglobin 8.0 g/dL (12.0-15.5) Hematocrit 24.4 % (36.0-47.0) Mean Corpuscular Volume 87 fL (79-100) Mean Corpuscular Hemoglobin 28 pg (25-35) Mean Corpuscular Hemoglobin Concent 33 g/dL (31-37) Red Cell Distribution Width 19.5 % (11.5-14.5) Platelet Count 325 x10^3/uL (140-400) Neutrophils (%) (Auto) 72 % (31-73) Lymphocytes (%) (Auto) 17 % (24-48) Monocytes (%) (Auto) 9 % (0-9) Eosinophils (%) (Auto) 2 % (0-3) Basophils (%) (Auto) 0 % (0-3) Neutrophils # (Auto) 8.2 x10^3/uL (1.8-7.7) Lymphocytes # (Auto) 2.0 x10^3/uL (1.0-4.8) Monocytes # (Auto) 1.0 x10^3/uL (0.0-1.1) Eosinophils # (Auto) 0.2 x10^3/uL (0.0-0.7) Basophils # (Auto) 0.0 x10^3/uL (0.0-0.2) Sodium Level 134 mmol/L (136-145) Potassium Level 4.6 mmol/L (3.5-5.1) Chloride Level 97 mmol/L (98-107) Carbon Dioxide Level 33 mmol/L (21-32) Anion Gap 4 (6-14) Blood Urea Nitrogen 28 mg/dL (7-20) Creatinine 0.9 mg/dL (0.6-1.0) Estimated GFR (Cockcroft-Gault) 66.5 Glucose Level 183 mg/dL (70-99) Calcium Level 10.0 mg/dL (8.5-10.1) Test 09/13/19 17:52 09/13/19 23:28 09/14/19 06:07 Glucose (Fingerstick) 182 mg/dL (70-99) 161 mg/dL (70-99) 142 mg/dL (70-99) Laboratory Tests Test 09/13/19 17:52 09/13/19 23:28 09/14/19 06:07 Glucose (Fingerstick) 182 mg/dL (70-99) 161 mg/dL (70-99) 142 mg/dL (70-99) Microbiology 09/04/19 Blood Culture - Final, Complete NO GROWTH AFTER 5 DAYS 08/24/19 Fungal Culture - Final, Complete 08/24/19 Fungal Culture Result 1 - Final, Complete 08/18/19 Aerobic Culture - Final, Complete 08/18/19 Aerobic Culture Result 1 (ALEXANDRA) - Final, Complete 08/18/19 Gram Stain - Final, Complete 08/18/19 Gram Stain Result 1 (ALEXANDRA) - Final, Complete 08/18/19 Gram Stain Result 2 (ALEXANDRA) - Final, Complete 07/31/19 Urine Culture - Final, Complete 07/31/19 Urine Culture Result 1 (ALEXANDRA) - Final, Complete Vitals/I & O Vital Sign - Last 24 Hours 09/13/19 09/13/19 09/13/19 09/13/19 11:00 11:21 11:30 12:00 Pulse 134 Resp 26 25 B/P (MAP) 100/69 (79) Pulse Ox 99 97 100 O2 Delivery Tracheal Collar Tracheal Collar Tracheal Collar Trach Collar O2 Flow Rate 8.0 2.0 8.0 09/13/19 09/13/19 09/13/19 09/13/19 12:00 13:00 13:27 14:00 Temp 98.9 98.9 Pulse 115 110 133 Resp 20 20 36 B/P (MAP) 109/72 (84) 131/83 (99) Pulse Ox 99 99 99 99 O2 Delivery Tracheal Collar Tracheal Collar Nasal Cannula Tracheal Collar O2 Flow Rate 8.0 8.0 3.0 8.0 09/13/19 09/13/19 09/13/19 09/13/19 15:00 16:00 16:00 16:26 Temp 98.8 98.8 Pulse 121 118 Resp 25 21 24 B/P (MAP) 119/78 (92) 121/78 (92) Pulse Ox 99 99 99 O2 Delivery Tracheal Collar Tracheal Collar Trach Collar Tracheal Collar O2 Flow Rate 8.0 8.0 8.0 8.0 09/13/19 09/13/19 09/13/19 09/13/19 16:56 17:00 18:00 19:00 Pulse 138 110 117 Resp 26 30 22 15 B/P (MAP) 135/75 (95) 125/71 (89) 108/74 (85) Pulse Ox 98 99 99 99 O2 Delivery Nasal Cannula Tracheal Collar Tracheal Collar Tracheal Collar O2 Flow Rate 3.0 8.0 8.0 8.0 09/13/19 09/13/19 09/13/19 09/13/19 19:45 20:00 20:00 21:00 Temp 98.4 98.4 Pulse 118 120 Resp 16 16 B/P (MAP) 102/62 (75) 112/68 (83) Pulse Ox 96 99 99 O2 Delivery Tracheal Collar Tracheal Collar Trach Collar Tracheal Collar O2 Flow Rate 8.0 8.0 8.0 09/13/19 09/13/19 09/13/19 09/13/19 21:01 21:31 22:00 23:00 Pulse 112 121 Resp 27 16 23 26 B/P (MAP) 108/63 (78) 107/67 (80) Pulse Ox 99 99 99 94 O2 Delivery Tracheal Collar Tracheal Collar O2 Flow Rate 8.0 8.0 8.0 8.0 09/14/19 09/14/19 09/14/19 09/14/19 00:00 00:01 01:00 02:00 Temp 98.1 98.1 Pulse 112 115 113 Resp 24 34 14 B/P (MAP) 118/64 (82) 97/59 (72) 97/48 (64) Pulse Ox 97 94 96 O2 Delivery Trach Collar Tracheal Collar Tracheal Collar Room Air O2 Flow Rate 8.0 8.0 8.0 5/27/09/14/19 09/14/19 09/14/19 03:00 04:00 04:00 05:00 Temp 98.1 98.1 Pulse 124 121 120 Resp 30 30 26 B/P (MAP) 106/56 (73) 127/60 (82) 107/70 (82) Pulse Ox 96 94 94 O2 Delivery Room Air Trach Collar Room Air Room Air O2 Flow Rate 8.0 09/14/19 09/14/19 09/14/19 09/14/19 06:00 06:11 06:41 07:00 Pulse 120 124 Resp 26 27 26 25 B/P (MAP) 124/70 (88) 117/61 (79) Pulse Ox 94 94 94 95 O2 Delivery Room Air Room Air Room Air Room Air 09/14/19 09/14/19 09/14/19 09/14/19 08:00 08:00 08:12 09:00 Temp 98.7 98.7 Pulse 129 136 Resp 33 26 B/P (MAP) 130/69 (89) 122/70 (87) Pulse Ox 95 94 96 O2 Delivery Room Air Room Air Room Air Room Air 09/14/19 10:00 Pulse 135 Resp 33 B/P (MAP) 164/93 (116) Pulse Ox 96 O2 Delivery Room Air Intake and Output 09/13/19 09/13/19 09/14/19 14:59 22:59 06:59 Intake Total 1195 ml 928.0 ml Output Total 690 ml 555 ml 480 ml Balance -690 ml 640 ml 448.0 ml Images No recent CT; been ~3 weeks. Problem List Problems Medical Problems: (1) Acute pancreatitis Status: Acute (2) Cholelithiasis Status: Acute Assessment Gallstone pancreatitis. S/p percutaneous drainage of pseudocyst(s)--status? Ongoing respiratory issues/effusions. Cholelithiasis Plan of Care Note Continue support. Will check CT re: status of cyst(s). Hemodynamically unstable?: No Is patient in severe pain?: No Is NPO status required?: Yes MARY RIVAS MD September 14, 2019 11:01
[2019-09-14] MEDS: TPN PER PHARMACY MC PRN (12:36)
--- NOTE | 2019-09-14 12:36 | NUR ---
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, 8 inches Weight: 75.7 kg Current diet: NPO LABS: Sodium: 134 Potassium: 4.6 Chloride: 97 Calcium: 10.0 Corrected Calcium: 11.36 Magnesium: 2.3 CO2: 33 SCr: 0.9 Glucose: 142 Albumin: 2.3 AST: 26 ALT: 25 TPN FORMULA: TPN TYPE: Central Continuous AMINO ACIDS: 75 gm DEXTROSE: 250 gm LIPIDS: 40 gm POTASSIUM CHLORIDE: 70 mEq MAGNESIUM: 20 mEq INSULIN: 15 units MULTIPLE VITAMIN: 10 ml TRACE ELEMENTS: 1 ml(s) TPN PLAN: No labs today. Refill TPN -BMP and triglycerides in AM. R: Continue same TPN formula. Will monitor electrolytes, glucose, and tolerance to TPN. MIKAYLA CHU RPH, 09/14/19 [id number]
--- NOTE | 2019-09-14 13:00 | NUR ---
Magda AVILA inquired about pt being cleared to try honey thick liquids. Dr. Servin paged and said to clamp the NG tube for an hour or so and if pt tolerated NG tube clamped, then okay to try liquids. Magda notified. After about an hour and a half, pt was complaining of nausea. PRN medication administered and NG re-hooked to suction.
[2019-09-14] MEDS: ONDANSETRON PF 4 MG/2 ML VIAL. IV PRN ×2 (13:14→21:19)
[2019-09-14] MEDS: PIPERACILLIN/TAZOBACTAM 3.375 GM in IV NORMAL SALINE 50ML 50 ML IV SCH ×2 (13:22→18:03)
[2019-09-14] MEDS: DEXMEDETOMIDINE 400 MCG in IV NORMAL SALINE 100ML 96 ML IV PRN (13:53)
--- NOTE | 2019-09-14 14:43 | RAD ---
CT Abdomen and Pelvis without contrast History: Status post pseudocyst drainage Technique: Noncontrast CT imaging was performed of the abdomen and pelvis. Multiplanar images are reviewed. Exposure: One or more of the following individualized dose reduction techniques were utilized for this examination: 1. Automated exposure control 2. Adjustment of the mA and/or kV according to patient size 3. Use of iterative reconstruction technique. Comparison: August 22, 2019; August 26, 2019 Findings: As seen on more recent exam, there is pigtail catheter in the right abdomen located inferior to expected region of the pancreatic head although normal pancreatic parenchyma is poorly discerned as replaced by a large area of somewhat heterogeneous, mostly fluid like density. Near the catheter, there is residual although smaller oblong fluid collection estimated about 10.1 cm transverse by 2 cm AP by about 8.5 cm cc. This could be a communication with persistent prominent area of fluid density in the region of expected pancreas as this area is smaller, now measures about 5.2 cm AP by about 8.7 cm CC by about 13 cm transverse versus previously about 7.5 cm AP by 10.1 cm CC by about 15.6 cm transverse. There is also now a pigtail catheter in the left anterior pelvis. There are residual pockets of fluid in the pelvis although significantly decreased. Largest pocket of fluid located more medial to the left pigtail catheter now measures about 7.9 cm transverse by 2.7 cm AP by 3.8 cm cc. There is again some extent of fluid density along the paracolic gutters bilaterally, fairly similar on the right although somewhat larger on the left. Fluid collection of the left paracolic gutter measures about 11.6 cm transverse oblique by 5.4 cm of the oblique as previously about 10.6 cm x 4.7 cm in similar measurement planes. There is now a right pigtail catheter terminating just anterior to the right iliac bone, somewhat larger pocket of fluid adjacent to the catheter estimated about 5.8 cm transverse by 4.9 cm. There is again extent of fluid collections along the anterior margins of the iliac bones bilaterally. No significant free air is identified. Bowel is not significantly dilated. There is catheter in the urinary bladder. There are small dependent pleural effusions bilaterally, left greater than right. There is some left lower lobe compressive atelectasis near effusion. Enteric catheter terminates in the stomach. There is cholelithiasis, nonspecific mild pericholecystic fluid. There is mild right hydronephrosis although decreased, no left hydronephrosis. No new obvious abnormality is identified of the liver, again hypodense lesion of the left lobe about 1.2 cm with density characteristics suggestive of a cyst. Impression: 1. There are now 3 pigtail catheters as described, residual fluid collections as stated mostly smaller other than larger collection of the inferior left paracolic gutter. 2. There are small, left greater than right pleural effusions, compressive atelectasis of the left lower lobe. 3. There is cholelithiasis. Electronically signed by: Bry Cruz MD (09/14/2019 2:40 PM) [id number]
[2019-09-14] MEDS: PROCHLORPERAZINE 10 MG/2 ML VIAL. IV PRN (16:28)
[2019-09-14] MEDS: ENOXAPARIN 40 MG/0.4 ML SYRINGE. SQ SCH (17:21)
[2019-09-14] MEDS: IV NORMAL SALINE 1000ML BAG 1,000 ML IV SCH (21:25)
[2019-09-14] MEDS ORDERED: AMINO ACID IV SCH ×8 (22:00)
[2019-09-14] MEDS ORDERED: DEXTROSE 70% IV SCH ×8 (22:00)
[2019-09-14] MEDS ORDERED: [UNRECOGNIZED DRUG - OTHER] IV SCH ×8 (22:00)
[2019-09-14] MEDS ORDERED: TOTAL PARENTERAL NUTRITION IV SCH ×8 (22:00)
[2019-09-15] VITALS (23 sets, daily range): BP systolic 97–157; BP diastolic 59–87
[2019-09-15] MEDS: INSULIN LISPRO 300 UNITS/3 ML VIAL. SQ SCH ×4 (00:27→17:53)
[2019-09-15] MEDS: PIPERACILLIN/TAZOBACTAM 3.375 GM in IV NORMAL SALINE 50ML 50 ML IV SCH ×5 (00:28→23:57)
[2019-09-15] MEDS: DEXMEDETOMIDINE 400 MCG in IV NORMAL SALINE 100ML 96 ML IV PRN ×2 (01:06→11:35)
[2019-09-15 06:04] LABS: CALCIUM 10.1 mg/dL (8.5-10.1); CREATININE 0.9 mg/dL (0.6-1.0); GFR 66.5
[2019-09-15] MEDS: PANTOPRAZOLE IV PUSH 40 MG VIAL. IVP SCH (08:15)
[2019-09-15] MEDS: fentaNYL PF VIAL 100 MCG/2 ML VIAL IVP PRN ×4 (08:15→21:04)
[2019-09-15] MEDS: FUROSEMIDE 40 MG/4 ML VIAL. IVP SCH ×2 (08:15→14:31)
--- NOTE | 2019-09-15 09:45 | PDOC ---
Infectious Disease Note Subjective: Subjective Patient calm Remains on trach off vent Afebrile last 24-hour Discussed with RN, will has some respiratory secretions but improved Vital Signs: Vital Signs Vital Signs Date Time Temp Pulse Resp B/P (MAP) Pulse Ox O2 Delivery O2 Flow Rate FiO2 09/15/19 09:00 132 32 112/64 (80) 94 Room Air 09/15/19 08:10 98.3 98.3 Physical Exam: PHYSICAL EXAM GENERAL: Just got up in the chair having a lot of coughing HEENT: Oral cavity clear, NGT NECK: Trach shield LUNGS: A lot of coughing with productive sputum from the tracheostomy site HEART: S1, S2, regular ABDOMEN: mod distention, hypoactive BS, tender, + drains x 3 : Lind (08/01) EXTREMITIES: Generalized edema, improving, no cyanosis, SCDs bilaterally SKIN: Warm and dry. No generalized rash. MANAGER SPRING: Very weak RUE-PICC (08/17) clean Medications: Inpatient Meds: Current Medications Medications (Trade) Dose Ordered Sig/Yvon Start Time Stop Time Status Last Admin Dose Admin Acetaminophen (Tylenol Supp) 650 mg PRN Q6HRS PRN 07/12/19 10:30 08/23/19 09:12 650 MG Acetaminophen (Tylenol) 650 mg PRN Q6HRS PRN 07/09/19 03:36 08/31/19 10:25 DC 08/04/19 19:56 650 MG Albumin Human 100 ml @ 100 mls/hr 1X PRN PRN 09/06/19 01:30 Albuterol Sulfate (Ventolin Neb Soln) 2.5 mg 1X ONCE 07/05/19 22:30 07/05/19 22:31 DC 07/06/19 00:56 2.5 MG Alteplase, Recombinant (Cathflo For Central Catheter Clearance) 1 mg 1X ONCE 08/12/19 10:45 08/12/19 10:46 DC 08/12/19 11:44 1 MG Amino Acids/ Glycerin/ Electrolytes 1,000 ml @ 75 mls/hr [id number] 08/08/19 21:15 UNV Artificial Tears (Artificial Tears) 1 drop PRN Q15MIN PRN 08/17/19 05:30 09/11/19 11:15 1 DROP Atenolol (Tenormin) 100 mg DAILY 07/05/19 09:00 07/04/19 20:08 DC Atropine Sulfate (ATROPINE 0.5mg SYRINGE) 0.5 mg PRN Q5MIN PRN 07/21/19 08:15 Barium Sulfate (Varibar Thin Liquid Apple) 148 gm 1X ONCE 09/13/19 11:45 09/13/19 11:49 DC Benzocaine (Hurricaine One) 1 spray 1X ONCE 07/08/19 14:30 07/08/19 14:31 DC 07/08/19 16:38 1 SPRAY Bisacodyl (Dulcolax Supp) 10 mg STK-MED ONCE 08/15/19 10:59 08/15/19 10:59 DC Bumetanide (Bumex) 2 mg DAILY 08/26/19 10:00 09/05/19 17:15 DC 09/05/19 08:07 2 MG Bupivacaine HCl/ Epinephrine Bitart (Sensorcain-Epi 0.5%-1:318980 Mpf) 30 ml STK-MED ONCE 08/15/19 10:58 08/15/19 10:58 DC 08/15/19 12:01 7 ML Calcium Carbonate/ Glycine (Tums) 500 mg PRN AFTMEALHC PRN 07/06/19 17:45 08/31/19 10:25 DC Calcium Chloride 1000 mg/Sodium Chloride 110 ml @ 220 mls/hr 1X ONCE 07/05/19 22:30 07/05/19 22:59 DC 07/05/19 22:11 220 MLS/HR Calcium Chloride 3000 mg/Sodium Chloride 1,030 ml @ 50 mls/hr [id number] 07/07/19 08:00 07/09/19 15:23 DC 07/09/19 02:17 50 MLS/HR Calcium Gluconate (Calcium Gluconate) 2,000 mg 1X ONCE 07/07/19 02:15 07/07/19 02:16 DC 07/07/19 02:19 2,000 MG Calcium Gluconate 1000 mg/Sodium Chloride 110 ml @ 220 mls/hr 1X ONCE 07/06/19 03:30 07/06/19 03:59 DC 07/06/19 03:21 220 MLS/HR Calcium Gluconate 2000 mg/Sodium Chloride 120 ml @ 220 mls/hr 1X ONCE 07/06/19 07:30 07/06/19 08:02 DC 07/06/19 09:05 220 MLS/HR Cefepime HCl (Maxipime) 2 gm Q12HR 07/13/19 09:00 07/27/19 09:58 DC 07/26/19 20:56 2 GM Cellulose (Surgicel Fibrillar 1x2) 1 each STK-MED ONCE 07/25/19 11:00 07/25/19 11:01 DC Cellulose (Surgicel Hemostat 2x14) 1 each STK-MED ONCE 08/15/19 10:58 08/15/19 10:59 DC Cellulose (Surgicel Hemostat 4x8) 1 each STK-MED ONCE 08/15/19 10:58 08/15/19 10:59 DC Cyclobenzaprine HCl (Flexeril) 10 mg PRN Q6HRS PRN 08/18/19 10:45 Daptomycin 430 mg/ Sodium Chloride 50 ml @ 100 mls/hr Q24H 08/13/19 13:00 08/18/19 20:58 DC 08/18/19 13:00 100 MLS/HR Daptomycin 450 mg/ Sodium Chloride 50 ml @ 100 mls/hr Q24H 09/04/19 09:00 09/08/19 08:30 DC 09/07/19 09:25 100 MLS/HR Daptomycin 485 mg/ Sodium Chloride 50 ml @ 100 mls/hr Q24H 08/22/19 11:00 08/30/19 07:44 DC 08/29/19 13:10 100 MLS/HR Daptomycin 500 mg/ Sodium Chloride 50 ml @ 100 mls/hr Q48H 07/13/19 08:30 07/29/19 10:07 DC 07/29/19 09:57 100 MLS/HR Dexamethasone Sodium Phosphate (Decadron) 4 mg STK-MED ONCE 08/15/19 10:56 08/15/19 10:57 DC Dexmedetomidine HCl 400 mcg/ Sodium Chloride 100 ml @ 0 mls/hr CONT PRN 07/21/19 08:15 09/15/19 01:06 5.4 MLS/HR Dextrose (Dextrose 50%-Water Syringe) 12.5 gm PRN Q15MIN PRN 07/04/19 09:30 Digoxin (Lanoxin) 125 mcg 1X ONCE 07/07/19 18:00 07/07/19 18:01 DC 07/07/19 17:10 125 MCG Diphenhydramine HCl (Benadryl) 25 mg 1X PRN PRN 08/12/19 15:45 08/13/19 15:44 DC Duloxetine HCl (Cymbalta) 30 mg DAILY 08/28/19 14:00 08/31/19 10:25 DC 08/29/19 09:48 30 MG Enoxaparin Sodium (Lovenox 100mg Syringe) 100 mg Q12HR 08/09/19 21:00 UNV Enoxaparin Sodium (Lovenox 40mg Syringe) 40 mg Q24H 09/04/19 17:00 09/14/19 17:21 40 MG Etomidate (Amidate) 8 mg 1X ONCE 07/11/19 08:30 07/11/19 08:31 DC 07/11/19 08:33 8 MG Fentanyl Citrate (Fentanyl 2ml Vial) 25 mcg PRN Q4HRS PRN 09/05/19 13:15 09/15/19 08:15 25 MCG Fentanyl Citrate (Fentanyl 5ml Vial) 250 mcg 1X ONCE 08/26/19 09:15 08/26/19 09:16 DC 08/26/19 09:30 50 MCG Furosemide (Lasix) 40 mg [id number] 09/06/19 14:00 09/15/19 08:15 40 MG Haloperidol Lactate (Haldol Inj) 3 mg 1X ONCE 08/22/19 14:30 08/22/19 14:31 DC 08/22/19 14:37 3 MG Heparin Sodium (Porcine) (Hep Lock Adult) 500 unit STK-MED ONCE 07/26/19 09:29 07/26/19 09:30 DC Heparin Sodium (Porcine) (Heparin Sodium) 5,000 unit Q12HR 08/15/19 21:00 08/25/19 09:59 DC 08/24/19 20:57 5,000 UNIT Heparin Sodium (Porcine) 1000 unit/Sodium Chloride 1,001 ml @ 1,001 mls/hr 1X ONCE 08/15/19 12:00 08/15/19 12:59 DC Hydromorphone HCl (Dilaudid Standard MED SPEC) 12 mg STK-MED ONCE 08/19/19 15:50 08/30/19 11:24 DC Hydromorphone HCl (Dilaudid) 1 mg PRN Q4HRS PRN 08/22/19 19:00 09/05/19 17:10 DC 09/05/19 06:25 1 MG Info (CONTRAST GIVEN -- Rx MONITORING) 1 each PRN DAILY PRN 07/18/19 11:45 07/20/19 11:44 DC Info (Icu Electrolyte Protocol) 1 ea CONT PRN PRN 07/17/19 13:15 Info (PHARMACY MONITORING -- do not chart) 1 each PRN DAILY PRN 08/12/19 15:45 09/13/19 14:14 DC Info (Tpn Per Pharmacy) 1 each PRN DAILY PRN 07/06/19 12:30 UNV Insulin Human Lispro (HumaLOG) 0-9 UNITS Q6HRS 07/04/19 09:30 09/15/19 00:27 4 UNITS Insulin Human Regular (HumuLIN R VIAL) 5 unit 1X ONCE 07/05/19 22:30 07/05/19 22:31 DC 07/05/19 22:14 5 UNIT Iohexol (Omnipaque 240 Mg/ml) 30 ml 1X ONCE 07/18/19 11:30 07/18/19 11:33 DC 07/18/19 11:30 30 ML Iohexol (Omnipaque 300 Mg/ml) 50 ml STK-MED ONCE 08/15/19 10:58 08/15/19 10:59 DC Iohexol (Omnipaque 350 Mg/ml) 90 ml 1X ONCE 07/04/19 03:30 07/04/19 03:31 DC 07/04/19 03:25 90 ML Ketorolac Tromethamine (Toradol 30mg Vial) 30 mg 1X ONCE 07/04/19 03:00 07/04/19 03:01 DC 07/04/19 02:54 30 MG Lidocaine HCl (Buffered Lidocaine 1%) 6 ml 1X ONCE 08/30/19 14:15 08/30/19 14:16 DC 08/30/19 14:15 3 ML Lidocaine HCl (Glydo (Lidocaine) Jelly) 1 ramu 1X ONCE 07/08/19 14:30 07/08/19 14:31 DC 07/08/19 16:38 1 RAMU Lidocaine HCl (Xylocaine-Mpf 1% 2ml Vial) 2 ml PRN 1X PRN 08/15/19 07:00 08/16/19 06:59 DC Linezolid/Dextrose 300 ml @ 300 mls/hr Q12HR 09/04/19 09:00 09/07/19 08:11 DC 09/06/19 21:08 300 MLS/HR Lorazepam (Ativan Inj) 2 mg PRN Q4HRS PRN 09/04/19 19:15 09/13/19 23:23 2 MG Magnesium Sulfate 50 ml @ 25 mls/hr 1X ONCE 08/28/19 09:00 08/28/19 10:59 DC 08/28/19 10:44 25 MLS/HR Meropenem 1 gm/ Sodium Chloride 100 ml @ 200 mls/hr Q8HRS 08/16/19 14:00 09/09/19 09:31 DC 09/09/19 05:53 200 MLS/HR Meropenem 500 mg/ Sodium Chloride 50 ml @ 100 mls/hr Q6HRS 09/12/19 18:00 09/14/19 09:59 DC 09/14/19 06:02 100 MLS/HR Metoclopramide HCl (Reglan Vial) 10 mg PRN Q3HRS PRN 08/27/19 16:45 09/01/19 04:25 10 MG Metoprolol Tartrate (Lopressor Vial) 5 mg 1X ONCE 09/04/19 15:15 09/04/19 15:16 DC 09/04/19 15:31 5 MG Metronidazole 100 ml @ 100 mls/hr Q8HRS 08/02/19 10:00 08/09/19 08:10 DC 08/09/19 06:04 100 MLS/HR Micafungin Sodium 100 mg/Dextrose 100 ml @ 100 mls/hr Q24H 08/22/19 11:00 09/14/19 09:59 DC 09/13/19 12:17 100 MLS/HR Midazolam HCl (Versed) 5 mg 1X ONCE 08/26/19 09:15 08/26/19 09:16 DC 08/26/19 09:30 1 MG Midazolam HCl 100 mg/Sodium Chloride 100 ml @ 7 mls/hr CONT PRN 07/16/19 16:00 07/27/19 15:35 7 MLS/HR Midazolam HCl 50 mg/Sodium Chloride 50 ml @ 0 mls/hr CONT PRN 07/11/19 08:15 07/16/19 15:59 DC 07/14/19 22:39 7 MLS/HR Morphine Sulfate (Morphine Sulfate) 2 mg PRN Q2HR PRN 07/04/19 05:00 07/05/19 14:15 DC 07/05/19 12:26 2 MG Multi-Ingred Cream/Lotion/Oil/ Oint (Artificial Tears Eye Ointment) 1 ramu PRN Q1HR PRN 07/13/19 17:30 08/01/19 08:19 1 RAMU Naloxone HCl (Narcan) 0.4 mg PRN Q2MIN PRN 08/15/19 14:30 UNV Norepinephrine Bitartrate 8 mg/ Dextrose 258 ml @ 17.299 mls/ hr CONT PRN 07/05/19 15:30 08/05/19 09:19 DC 08/02/19 12:48 20.9 MLS/HR Ondansetron HCl (Zofran) 4 mg STK-MED ONCE 08/15/19 10:56 08/15/19 10:57 DC Pantoprazole Sodium (PROTONIX VIAL for IV PUSH) 40 mg DAILYAC 07/04/19 11:30 09/15/19 08:15 40 MG Phenylephrine HCl (PHENYLEPHRINE in 0.9% NACL PF) 1 mg STK-MED ONCE 08/15/19 12:34 08/15/19 12:34 DC Piperacillin Sod/ Tazobactam Sod 3.375 gm/Sodium Chloride 50 ml @ 100 mls/hr Q6HRS 09/14/19 12:00 09/15/19 05:31 100 MLS/HR Piperacillin Sod/ Tazobactam Sod 4.5 gm/Sodium Chloride 100 ml @ 200 mls/hr 1X ONCE 07/04/19 06:00 07/04/19 06:29 DC 07/04/19 05:44 200 MLS/HR Potassium Chloride 110 meq/ Magnesium Sulfate 20 meq/ Multivitamins 10 ml/Chromium/ Copper/Manganese/ Seleni/Zn 1 ml/ Insulin Human Regular 15 unit/ Total Parenteral Nutrition/Amino Acids/Dextrose/ Fat Emulsion Intravenous 1,800 ml @ 75 mls/hr TPN CONT 09/11/19 22:00 09/12/19 21:59 DC 09/11/19 22:48 75 MLS/HR Potassium Chloride 15 meq/ Bicarbonate Dialysis Soln w/ out KCl 5,007.5 ml @ 1,000 mls/ hr Q5H1M 07/17/19 20:00 07/21/19 13:08 DC 07/20/19 18:14 1,000 MLS/HR Potassium Chloride 20 meq/ Bicarbonate Dialysis Soln w/ out KCl 5,010 ml @ 1,000 mls/hr Q5H1M 07/13/19 16:00 07/17/19 19:59 DC 07/17/19 14:54 1,000 MLS/HR Potassium Chloride 70 meq/ Magnesium Sulfate 20 meq/ Multivitamins 10 ml/Chromium/ Copper/Manganese/ Seleni/Zn 1 ml/ Insulin Human Regular 15 unit/ Total Parenteral Nutrition/Amino Acids/Dextrose/ Fat Emulsion Intravenous 1,800 ml @ 75 mls/hr TPN CONT 09/14/19 22:00 09/15/19 21:59 09/14/19 22:03 75 MLS/HR Potassium Chloride 75 meq/ Magnesium Sulfate 15 meq/ Multivitamins 10 ml/Chromium/ Copper/Manganese/ Seleni/Zn 0.5 ml/ Insulin Human Regular 15 unit/ Total Parenteral Nutrition/Amino Acids/Dextrose/ Fat Emulsion Intravenous 1,920 ml @ 80 mls/hr TPN CONT 08/27/19 22:00 08/28/19 21:59 DC 08/27/19 22:41 80 MLS/HR Potassium Chloride 75 meq/ Magnesium Sulfate 15 meq/Calcium Gluconate 8 meq/ Multivitamins 10 ml/Chromium/ Copper/Manganese/ Seleni/Zn 0.5 ml/ Insulin Human Regular 15 unit/ Total Parenteral Nutrition/Amino Acids/Dextrose/ Fat Emulsion Intravenous 1,920 ml @ 80 mls/hr TPN CONT 08/25/19 22:00 08/26/19 21:59 DC 08/25/19 22:28 80 MLS/HR Potassium Chloride 75 meq/ Magnesium Sulfate 15 meq/Calcium Gluconate 8 meq/ Multivitamins 10 ml/Chromium/ Copper/Manganese/ Seleni/Zn 0.5 ml/ Insulin Human Regular 20 unit/ Total Parenteral Nutrition/Amino Acids/Dextrose/ Fat Emulsion Intravenous 1,920 ml @ 80 mls/hr TPN CONT 08/24/19 22:00 08/25/19 21:59 DC 08/24/19 22:00 80 MLS/HR Potassium Chloride 75 meq/ Magnesium Sulfate 15 meq/Calcium Gluconate 8 meq/ Multivitamins 10 ml/Chromium/ Copper/Manganese/ Seleni/Zn 0.5 ml/ Insulin Human Regular 25 unit/ Total Parenteral Nutrition/Amino Acids/Dextrose/ Fat Emulsion Intravenous 1,920 ml @ 80 mls/hr TPN CONT 08/22/19 22:00 08/23/19 21:59 DC 08/22/19 23:08 80 MLS/HR Potassium Chloride 75 meq/ Magnesium Sulfate 20 meq/Calcium Gluconate 10 meq/ Multivitamins 10 ml/Chromium/ Copper/Manganese/ Seleni/Zn 0.5 ml/ Insulin Human Regular 25 unit/ Total Parenteral Nutrition/Amino Acids/Dextrose/ Fat Emulsion Intravenous 1,920 ml @ 80 mls/hr TPN CONT 08/21/19 22:00 08/22/19 21:59 DC 08/21/19 22:04 80 MLS/HR Potassium Chloride 75 meq/ Magnesium Sulfate 20 meq/Calcium Gluconate 10 meq/ Multivitamins 10 ml/Chromium/ Copper/Manganese/ Seleni/Zn 0.5 ml/ Insulin Human Regular 30 unit/ Total Parenteral Nutrition/Amino Acids/Dextrose/ Fat Emulsion Intravenous 1,920 ml @ 80 mls/hr TPN CONT 08/20/19 22:00 08/21/19 22:00 DC 08/20/19 21:51 80 MLS/HR Potassium Chloride 80 meq/ Magnesium Sulfate 20 meq/ Multivitamins 10 ml/Chromium/ Copper/Manganese/ Seleni/Zn 0.5 ml/ Insulin Human Regular 15 unit/ Total Parenteral Nutrition/Amino Acids/Dextrose/ Fat Emulsion Intravenous 1,920 ml @ 80 mls/hr TPN CONT 08/30/19 22:00 08/31/19 21:59 DC 08/30/19 21:40 80 MLS/HR Potassium Chloride 80 meq/ Magnesium Sulfate 20 meq/ Multivitamins 10 ml/Chromium/ Copper/Manganese/ Seleni/Zn 1 ml/ Insulin Human Regular 15 unit/ Total Parenteral Nutrition/Amino Acids/Dextrose/ Fat Emulsion Intravenous 1,920 ml @ 80 mls/hr TPN CONT 08/31/19 22:00 09/01/19 21:59 DC 08/31/19 22:04 80 MLS/HR Potassium Chloride 90 meq/ Magnesium Sulfate 20 meq/ Multivitamins 10 ml/Chromium/ Copper/Manganese/ Seleni/Zn 1 ml/ Insulin Human Regular 15 unit/ Total Parenteral Nutrition/Amino Acids/Dextrose/ Fat Emulsion Intravenous 1,800 ml @ 75 mls/hr TPN CONT 09/07/19 22:00 09/08/19 21:59 DC 09/07/19 22:28 75 MLS/HR Potassium Chloride/Water 100 ml @ 100 mls/hr 1X ONCE 09/01/19 11:00 09/01/19 11:59 DC 09/01/19 11:34 100 MLS/HR Potassium Phosphate 20 mmol/ Sodium Chloride 106.6667 ml @ 51.667 m... 1X ONCE 07/13/19 13:00 07/13/19 15:03 DC 07/13/19 12:51 51.667 MLS/HR Potassium Acetate 30 meq/Magnesium Sulfate 20 meq/ Calcium Gluconate 10 meq/ Multivitamins 10 ml/Chromium/ Copper/Manganese/ Seleni/Zn 0.5 ml/ Insulin Human Regular 30 unit/ Potassium Chloride 30 meq/ Total Parenteral Nutrition/Amino Acids/Dextrose/ Fat Emulsion Intravenous 1,920 ml @ 80 mls/hr TPN CONT 08/19/19 22:00 08/20/19 21:59 DC 08/19/19 22:34 80 MLS/HR Potassium Acetate 55 meq/Magnesium Sulfate 20 meq/ Calcium Gluconate 10 meq/ Multivitamins 10 ml/Chromium/ Copper/Manganese/ Seleni/Zn 0.5 ml/ Insulin Human Regular 30 unit/ Total Parenteral Nutrition/Amino Acids/Dextrose/ Fat Emulsion Intravenous 1,920 ml @ 80 mls/hr TPN CONT 08/18/19 22:00 08/19/19 21:59 DC 08/19/19 01:00 80 MLS/HR Potassium Acetate 55 meq/Magnesium Sulfate 20 meq/ Calcium Gluconate 10 meq/ Multivitamins 10 ml/Chromium/ Copper/Manganese/ Seleni/Zn 0.5 ml/ Insulin Human Regular 35 unit/ Total Parenteral Nutrition/Amino Acids/Dextrose/ Fat Emulsion Intravenous 1,920 ml @ 80 mls/hr TPN CONT 08/16/19 22:00 08/17/19 21:59 DC 08/16/19 22:02 80 MLS/HR Potassium Acetate 65 meq/Magnesium Sulfate 20 meq/ Calcium Gluconate 10 meq/ Multivitamins 10 ml/Chromium/ Copper/Manganese/ Seleni/Zn 0.5 ml/ Insulin Human Regular 30 unit/ Total Parenteral Nutrition/Amino Acids/Dextrose/ Fat Emulsion Intravenous 1,920 ml @ 80 mls/hr TPN CONT 08/17/19 22:00 08/18/19 21:59 DC 08/17/19 22:22 80 MLS/HR Prochlorperazine Edisylate (Compazine) 5 mg PACU PRN PRN 08/15/19 07:00 08/16/19 06:59 DC Propofol 20 ml @ As Directed STK-MED ONCE 08/15/19 12:26 08/15/19 12:27 DC Ringer's Solution 1,000 ml @ 30 mls/hr Q24H 08/15/19 07:00 08/15/19 18:59 DC Rocuronium Wilcox (Zemuron) 50 mg STK-MED ONCE 08/15/19 10:56 08/15/19 10:57 DC Saliva Substitute (Biotene Moisturizing Mouth) 2 spray PRN Q15MIN PRN 09/08/19 11:00 Sevoflurane (Ultane) 60 ml STK-MED ONCE 08/15/19 12:26 08/15/19 12:27 DC Sodium Bicarbonate 50 meq/Sodium Chloride 1,050 ml @ 75 mls/hr Q14H 07/06/19 07:30 07/11/19 10:28 DC 07/10/19 21:10 75 MLS/HR Sodium Acetate 50 meq/Potassium Acetate 55 meq/ Magnesium Sulfate 20 meq/Calcium Gluconate 10 meq/ Multivitamins 10 ml/Chromium/ Copper/Manganese/ Seleni/Zn 0.5 ml/ Insulin Human Regular 35 unit/ Total Parenteral Nutrition/Amino Acids/Dextrose/ Fat Emulsion Intravenous 1,800 ml @ 75 mls/hr TPN CONT 08/13/19 22:00 08/14/19 21:59 DC 08/13/19 22:03 75 MLS/HR Sodium Chloride 1,000 ml @ 25 mls/hr Q24H 08/15/19 14:30 UNV Sodium Chloride (Normal Saline Flush) 3 ml QSHIFT PRN 08/15/19 13:45 Sodium Chloride 90 meq/Calcium Gluconate 10 meq/ Multivitamins 10 ml/Chromium/ Copper/Manganese/ Seleni/Zn 0.5 ml/ Total Parenteral Nutrition/Amino Acids/Dextrose/ Fat Emulsion Intravenous 1,512 ml @ 63 mls/hr TPN CONT 07/06/19 22:00 07/07/19 21:59 DC 07/06/19 22:06 63 MLS/HR Sodium Chloride 90 meq/Calcium Gluconate 10 meq/ Multivitamins 10 ml/Chromium/ Copper/Manganese/ Seleni/Zn 1 ml/ Total Parenteral Nutrition/Amino Acids/Dextrose/ Fat Emulsion Intravenous 55.005 ml @ 2.292 mls/hr TPN CONT 07/06/19 22:00 07/06/19 12:33 DC Sodium Chloride 90 meq/Magnesium Sulfate 10 meq/ Calcium Gluconate 20 meq/ Multivitamins 10 ml/Chromium/ Copper/Manganese/ Seleni/Zn 0.5 ml/ Total Parenteral Nutrition/Amino Acids/Dextrose/ Fat Emulsion Intravenous 1,512 ml @ 63 mls/hr TPN CONT 07/07/19 22:00 07/08/19 21:59 DC 07/07/19 22:25 63 MLS/HR Sodium Chloride 90 meq/Magnesium Sulfate 12 meq/ Calcium Gluconate 15 meq/ Multivitamins 10 ml/Chromium/ Copper/Manganese/ Seleni/Zn 0.5 ml/ Insulin Human Regular 25 unit/ Total Parenteral Nutrition/Amino Acids/Dextrose/ Fat Emulsion Intravenous 1,400 ml @ 58.333 mls/ hr TPN CONT 07/27/19 22:00 07/28/19 21:59 DC 07/27/19 21:41 58.333 MLS/HR Sodium Chloride 90 meq/Potassium Chloride 15 meq/ Magnesium Sulfate 12 meq/Calcium Gluconate 15 meq/ Multivitamins 10 ml/Chromium/ Copper/Manganese/ Seleni/Zn 0.5 ml/ Insulin Human Regular 25 unit/ Total Parenteral Nutrition/Amino Acids/Dextrose/ Fat Emulsion Intravenous 1,400 ml @ 58.333 mls/ hr TPN CONT 07/26/19 22:00 07/27/19 21:59 DC 07/26/19 22:13 58.333 MLS/HR Sodium Chloride 90 meq/Potassium Chloride 15 meq/ Potassium Phosphate 10 mmol/ Magnesium Sulfate 8 meq/Calcium Gluconate 15 meq/ Multivitamins 10 ml/Chromium/ Copper/Manganese/ Seleni/Zn 0.5 ml/ Insulin Human Regular 25 unit/ Total Parenteral Nutrition/Amino Acids/Dextrose/ Fat Emulsion Intravenous 1,400 ml @ 58.333 mls/ hr TPN CONT 07/24/19 22:00 07/25/19 21:59 DC 07/24/19 21:20 58.333 MLS/HR Sodium Chloride 90 meq/Potassium Chloride 15 meq/ Potassium Phosphate 10 mmol/ Magnesium Sulfate 10 meq/Calcium Gluconate 20 meq/ Multivitamins 10 ml/Chromium/ Copper/Manganese/ Seleni/Zn 0.5 ml/ Total Parenteral Nutrition/Amino Acids/Dextrose/ Fat Emulsion Intravenous 1,400 ml @ 58.333 mls/ hr TPN CONT 07/11/19 22:00 07/12/19 21:59 DC 07/11/19 21:42 58.333 MLS/HR Sodium Chloride 90 meq/Potassium Chloride 15 meq/ Potassium Phosphate 10 mmol/ Magnesium Sulfate 12 meq/Calcium Gluconate 15 meq/ Multivitamins 10 ml/Chromium/ Copper/Manganese/ Seleni/Zn 0.5 ml/ Insulin Human Regular 25 unit/ Total Parenteral Nutrition/Amino Acids/Dextrose/ Fat Emulsion Intravenous 1,400 ml @ 58.333 mls/ hr TPN CONT 07/25/19 22:00 07/26/19 21:59 DC 07/25/19 22:24 58.333 MLS/HR Sodium Chloride 90 meq/Potassium Chloride 15 meq/ Potassium Phosphate 15 mmol/ Magnesium Sulfate 10 meq/Calcium Gluconate 15 meq/ Multivitamins 10 ml/Chromium/ Copper/Manganese/ Seleni/Zn 0.5 ml/ Total Parenteral Nutrition/Amino Acids/Dextrose/ Fat Emulsion Intravenous 1,400 ml @ 58.333 mls/ hr TPN CONT 07/12/19 22:00 07/13/19 21:59 DC 07/12/19 22:17 58.333 MLS/HR Sodium Chloride 90 meq/Potassium Chloride 15 meq/ Potassium Phosphate 15 mmol/ Magnesium Sulfate 10 meq/Calcium Gluconate 20 meq/ Multivitamins 10 ml/Chromium/ Copper/Manganese/ Seleni/Zn 0.5 ml/ Total Parenteral Nutrition/Amino Acids/Dextrose/ Fat Emulsion Intravenous 1,200 ml @ 50 mls/hr TPN CONT 07/10/19 22:00 07/10/19 14:17 DC Sodium Chloride 90 meq/Potassium Chloride 15 meq/ Potassium Phosphate 18 mmol/ Magnesium Sulfate 8 meq/Calcium Gluconate 15 meq/ Multivitamins 10 ml/Chromium/ Copper/Manganese/ Seleni/Zn 0.5 ml/ Insulin Human Regular 10 unit/ Total Parenteral Nutrition/Amino Acids/Dextrose/ Fat Emulsion Intravenous 1,400 ml @ 58.333 mls/ hr TPN CONT 07/15/19 22:00 07/16/19 21:59 DC 07/15/19 21:43 58.333 MLS/HR Sodium Chloride 90 meq/Potassium Chloride 15 meq/ Potassium Phosphate 18 mmol/ Magnesium Sulfate 8 meq/Calcium Gluconate 15 meq/ Multivitamins 10 ml/Chromium/ Copper/Manganese/ Seleni/Zn 0.5 ml/ Insulin Human Regular 15 unit/ Total Parenteral Nutrition/Amino Acids/Dextrose/ Fat Emulsion Intravenous 1,400 ml @ 58.333 mls/ hr TPN CONT 07/18/19 22:00 07/19/19 21:59 DC 07/18/19 21:47 58.333 MLS/HR Sodium Chloride 90 meq/Potassium Chloride 15 meq/ Potassium Phosphate 18 mmol/ Magnesium Sulfate 8 meq/Calcium Gluconate 15 meq/ Multivitamins 10 ml/Chromium/ Copper/Manganese/ Seleni/Zn 0.5 ml/ Insulin Human Regular 20 unit/ Total Parenteral Nutrition/Amino Acids/Dextrose/ Fat Emulsion Intravenous 1,400 ml @ 58.333 mls/ hr TPN CONT 07/21/19 22:00 07/22/19 21:59 DC 07/21/19 22:45 58.333 MLS/HR Sodium Chloride 90 meq/Potassium Chloride 15 meq/ Potassium Phosphate 18 mmol/ Magnesium Sulfate 8 meq/Calcium Gluconate 15 meq/ Multivitamins 10 ml/Chromium/ Copper/Manganese/ Seleni/Zn 0.5 ml/ Total Parenteral Nutrition/Amino Acids/Dextrose/ Fat Emulsion Intravenous 1,400 ml @ 58.333 mls/ hr TPN CONT 07/14/19 22:00 07/15/19 21:59 DC 07/14/19 22:00 58.333 MLS/HR Sodium Chloride 90 meq/Potassium Phosphate 15 mmol/ Magnesium Sulfate 12 meq/Calcium Gluconate 15 meq/ Multivitamins 10 ml/Chromium/ Copper/Manganese/ Seleni/Zn 0.5 ml/ Insulin Human Regular 30 unit/ Total Parenteral Nutrition/Amino Acids/Dextrose/ Fat Emulsion Intravenous 1,400 ml @ 58.333 mls/ hr TPN CONT 07/29/19 22:00 07/30/19 21:59 DC 07/29/19 21:49 58.333 MLS/HR Sodium Chloride 90 meq/Potassium Phosphate 15 mmol/ Magnesium Sulfate 12 meq/Calcium Gluconate 15 meq/ Multivitamins 10 ml/Chromium/ Copper/Manganese/ Seleni/Zn 0.5 ml/ Insulin Human Regular 40 unit/ Total Parenteral Nutrition/Amino Acids/Dextrose/ Fat Emulsion Intravenous 1,400 ml @ 58.333 mls/ hr TPN CONT 07/30/19 22:00 07/31/19 21:59 DC 07/30/19 21:21 58.333 MLS/HR Sodium Chloride 90 meq/Potassium Phosphate 19 mmol/ Magnesium Sulfate 12 meq/Calcium Gluconate 15 meq/ Multivitamins 10 ml/Chromium/ Copper/Manganese/ Seleni/Zn 0.5 ml/ Insulin Human Regular 40 unit/ Total Parenteral Nutrition/Amino Acids/Dextrose/ Fat Emulsion Intravenous 1,400 ml @ 58.333 mls/ hr TPN CONT 07/31/19 22:00 08/01/19 21:59 DC 07/31/19 21:54 58.333 MLS/HR Sodium Chloride 90 meq/Potassium Phosphate 5 mmol/ Magnesium Sulfate 12 meq/Calcium Gluconate 15 meq/ Multivitamins 10 ml/Chromium/ Copper/Manganese/ Seleni/Zn 0.5 ml/ Insulin Human Regular 30 unit/ Total Parenteral Nutrition/Amino Acids/Dextrose/ Fat Emulsion Intravenous 1,400 ml @ 58.333 mls/ hr TPN CONT 07/28/19 22:00 07/29/19 21:59 DC 07/28/19 22:08 58.333 MLS/HR Sodium Chloride 100 meq/Potassium Chloride 40 meq/ Magnesium Sulfate 15 meq/Calcium Gluconate 15 meq/ Multivitamins 10 ml/Chromium/ Copper/Manganese/ Seleni/Zn 0.5 ml/ Insulin Human Regular 35 unit/ Total Parenteral Nutrition/Amino Acids/Dextrose/ Fat Emulsion Intravenous 1,400 ml @ 58.333 mls/ hr TPN CONT 08/07/19 22:00 08/08/19 21:59 DC 08/07/19 22:46 58.333 MLS/HR Sodium Chloride 100 meq/Potassium Chloride 40 meq/ Magnesium Sulfate 20 meq/Calcium Gluconate 10 meq/ Multivitamins 10 ml/Chromium/ Copper/Manganese/ Seleni/Zn 0.5 ml/ Insulin Human Regular 35 unit/ Total Parenteral Nutrition/Amino Acids/Dextrose/ Fat Emulsion Intravenous 1,400 ml @ 58.333 mls/ hr TPN CONT 08/11/19 22:00 08/12/19 21:59 DC 08/12/19 00:06 58.333 MLS/HR Sodium Chloride 100 meq/Potassium Chloride 40 meq/ Magnesium Sulfate 20 meq/Calcium Gluconate 15 meq/ Multivitamins 10 ml/Chromium/ Copper/Manganese/ Seleni/Zn 0.5 ml/ Insulin Human Regular 35 unit/ Total Parenteral Nutrition/Amino Acids/Dextrose/ Fat Emulsion Intravenous 1,400 ml @ 58.333 mls/ hr TPN CONT 08/10/19 22:00 08/11/19 21:59 DC 08/10/19 22:27 58.333 MLS/HR Sodium Chloride 100 meq/Potassium Phosphate 10 mmol/ Magnesium Sulfate 12 meq/Calcium Gluconate 15 meq/ Multivitamins 10 ml/Chromium/ Copper/Manganese/ Seleni/Zn 0.5 ml/ Insulin Human Regular 35 unit/ Potassium Chloride 20 meq/ Total Parenteral Nutrition/Amino Acids/Dextrose/ Fat Emulsion Intravenous 1,400 ml @ 58.333 mls/ hr TPN CONT 08/04/19 22:00 08/05/19 21:59 DC 08/04/19 22:10 58.333 MLS/HR Sodium Chloride 100 meq/Potassium Phosphate 19 mmol/ Magnesium Sulfate 12 meq/Calcium Gluconate 15 meq/ Multivitamins 10 ml/Chromium/ Copper/Manganese/ Seleni/Zn 0.5 ml/ Insulin Human Regular 40 unit/ Potassium Chloride 20 meq/ Total Parenteral Nutrition/Amino Acids/Dextrose/ Fat Emulsion Intravenous 1,400 ml @ 58.333 mls/ hr TPN CONT 08/03/19 22:00 08/04/19 21:59 DC 08/03/19 21:20 58.333 MLS/HR Sodium Chloride 100 meq/Potassium Phosphate 5 mmol/ Magnesium Sulfate 12 meq/Calcium Gluconate 15 meq/ Multivitamins 10 ml/Chromium/ Copper/Manganese/ Seleni/Zn 0.5 ml/ Insulin Human Regular 35 unit/ Potassium Chloride 20 meq/ Total Parenteral Nutrition/Amino Acids/Dextrose/ Fat Emulsion Intravenous 1,400 ml @ 58.333 mls/ hr TPN CONT 08/05/19 22:00 08/06/19 21:59 DC 08/05/19 22:59 58.333 MLS/HR Succinylcholine Chloride (Anectine) 120 mg 1X ONCE 07/11/19 08:30 07/11/19 08:31 DC 07/11/19 08:34 120 MG Vecuronium Wilcox (Norcuron Bolus) 6 mg PRN Q6HRS PRN 08/25/19 19:15 08/25/19 19:35 DC Labs: Lab Laboratory Tests Test 09/14/19 12:28 09/14/19 18:06 09/15/19 00:20 09/15/19 05:27 Glucose (Fingerstick) 177 mg/dL (70-99) 149 mg/dL (70-99) 170 mg/dL (70-99) 142 mg/dL (70-99) Test 09/15/19 05:30 Sodium Level 137 mmol/L (136-145) Potassium Level 4.0 mmol/L (3.5-5.1) Chloride Level 98 mmol/L (98-107) Carbon Dioxide Level 30 mmol/L (21-32) Anion Gap 9 (6-14) Blood Urea Nitrogen 31 mg/dL (7-20) Creatinine 0.9 mg/dL (0.6-1.0) Estimated GFR (Cockcroft-Gault) 66.5 Glucose Level 155 mg/dL (70-99) Calcium Level 10.1 mg/dL (8.5-10.1) Triglycerides Level 206 mg/dL (0-150) Objective: Assessment: Fever intermittent could be from underlying pancreatitis vs aspiration pneumonia Acute pancreatitis with persistent necrosis CT a/p 07/27 Increased ascites. Persistent evidence of necrotizing pancreatitis with fluid and phlegmon at the pancreas 08/14 status post KAYLIN drain placement; yeast 08/23 fluid devny parapsilosis fluid amylase high Cholelithiasis with thickening of the gallbladder wall. Leucocytosis JUANA,Hyperkalemia, Metabolic acidosis off dialysis Acute hypoxic resp failure ,bilateral pleural effusion and atelectasis hypocalcemia Prediabetes HTN s/p trach Plan: Plan of Care Continue Zosyn September 13 DC micafungin, 08/21 Off dapto/zyvox/merrem Aggressive pulmonary toilet Maintain aspiration precaution Supportive care Critically ill Discussed with nursing staff YUNIOR JONES MD September 15, 2019 09:45
[2019-09-15] MEDS: ONDANSETRON PF 4 MG/2 ML VIAL. IV PRN ×2 (09:52→16:38)
--- NOTE | 2019-09-15 10:14 | PDOC ---
PULMONARY PROGRESS NOTES Subjective Patient intubated on 07/10 , s/p trach /, Remains on TS Denies SOB or increased cough, Vitals Vital Signs Date Time Temp Pulse Resp B/P (MAP) Pulse Ox O2 Delivery O2 Flow Rate FiO2 09/15/19 10:08 135 30 136/73 (94) 95 Room Air 09/15/19 08:10 98.3 98.3 ROS: No Chest Pain, No Abdominal Pain, No Increase Cough General: Alert, No acute distress HEENT: Other (trach midline ) Lungs: Other (Good air movement but having a lot of productive sputum from her tracheostomy site) Cardiovascular: S1, S2 Abdomen: Soft, Non-tender Neuro Exam: Alert Extremities: Other (+3 generalized edema ) Skin: Warm, Dry Labs Laboratory Tests Test 09/13/19 17:52 09/13/19 23:28 09/14/19 06:07 09/14/19 12:28 Glucose (Fingerstick) 182 mg/dL (70-99) 161 mg/dL (70-99) 142 mg/dL (70-99) 177 mg/dL (70-99) Test 09/14/19 18:06 09/15/19 00:20 09/15/19 05:27 09/15/19 05:30 Glucose (Fingerstick) 149 mg/dL (70-99) 170 mg/dL (70-99) 142 mg/dL (70-99) Sodium Level 137 mmol/L (136-145) Potassium Level 4.0 mmol/L (3.5-5.1) Chloride Level 98 mmol/L (98-107) Carbon Dioxide Level 30 mmol/L (21-32) Anion Gap 9 (6-14) Blood Urea Nitrogen 31 mg/dL (7-20) Creatinine 0.9 mg/dL (0.6-1.0) Estimated GFR (Cockcroft-Gault) 66.5 Glucose Level 155 mg/dL (70-99) Calcium Level 10.1 mg/dL (8.5-10.1) Triglycerides Level 206 mg/dL (0-150) Laboratory Tests Test 09/14/19 12:28 09/14/19 18:06 09/15/19 00:20 09/15/19 05:27 Glucose (Fingerstick) 177 mg/dL (70-99) 149 mg/dL (70-99) 170 mg/dL (70-99) 142 mg/dL (70-99) Test 09/15/19 05:30 Sodium Level 137 mmol/L (136-145) Potassium Level 4.0 mmol/L (3.5-5.1) Chloride Level 98 mmol/L (98-107) Carbon Dioxide Level 30 mmol/L (21-32) Anion Gap 9 (6-14) Blood Urea Nitrogen 31 mg/dL (7-20) Creatinine 0.9 mg/dL (0.6-1.0) Estimated GFR (Cockcroft-Gault) 66.5 Glucose Level 155 mg/dL (70-99) Calcium Level 10.1 mg/dL (8.5-10.1) Triglycerides Level 206 mg/dL (0-150) Medications Active Scripts Medications Dose Route/Sig Max Daily Dose Days Date Category Bisoprolol Fumarate 5 Mg Tablet 10 Mg PO DAILY 07/04/19 Reported Impression . IMPRESSION: 1. Acute hypoxemic respiratory failure secondary to ARDS status post trach, 2. Gallstone pancreatitis 3. Severe metabolic acidosis.stable 4. Acute kidney injury-stable, Off HD-- continue to improve 5. Acute gallstone pancreatitis. 6. Hypoalbuminemia. 7. Moderate persistent effusions, s/p left thora 08/29 8. Fever- Per ID, per surgery--resolved 9. Chronic anemia 10. Covid 19 testing negative 11. Moderate to large ascites-S/P paracentisis 12.S/P paracentisis with 4 liters removed on 08/03/19 13. S/P IR drain placement on 08/26/2019 Plan . 1.Continue supplemental oxygen via trach shield-- PMV/capping as tolerated 2. s/p thoracentesis, 08/29, 3 litres removed 3. Follow surgery recs-- S/P 3 drain placed in IR on 08/26/2019 4. Follow ID recs for ABX 5. Follow nephrology recs 6. Continue TPN DVT/GI PPX: heparin SQ/ protonix D/W RN and RT, CODE:FULL VINAYAK LANDRUM MD September 15, 2019 10:14
--- NOTE | 2019-09-15 10:38 | PDOC ---
SURGICAL PROGRESS NOTE Subjective Pt awake and alert Vital Signs Vital Signs Date Time Temp Pulse Resp B/P (MAP) Pulse Ox O2 Delivery O2 Flow Rate FiO2 09/15/19 10:08 135 30 136/73 (94) 95 Room Air 09/15/19 08:10 98.3 98.3 I&O Intake and Output 09/15/19 07:00 Intake Total 2235.3 ml Output Total 1983 ml Balance 252.3 ml IV Total 2235.3 ml Output Urine Total 1828 ml Drainage Total 155 ml General: Alert, Cooperative, No acute distress Abdomen: Soft, No tenderness Labs Laboratory Tests Test 09/13/19 17:52 09/13/19 23:28 09/14/19 06:07 09/14/19 12:28 Glucose (Fingerstick) 182 mg/dL (70-99) 161 mg/dL (70-99) 142 mg/dL (70-99) 177 mg/dL (70-99) Test 09/14/19 18:06 09/15/19 00:20 09/15/19 05:27 09/15/19 05:30 Glucose (Fingerstick) 149 mg/dL (70-99) 170 mg/dL (70-99) 142 mg/dL (70-99) Sodium Level 137 mmol/L (136-145) Potassium Level 4.0 mmol/L (3.5-5.1) Chloride Level 98 mmol/L (98-107) Carbon Dioxide Level 30 mmol/L (21-32) Anion Gap 9 (6-14) Blood Urea Nitrogen 31 mg/dL (7-20) Creatinine 0.9 mg/dL (0.6-1.0) Estimated GFR (Cockcroft-Gault) 66.5 Glucose Level 155 mg/dL (70-99) Calcium Level 10.1 mg/dL (8.5-10.1) Triglycerides Level 206 mg/dL (0-150) Laboratory Tests Test 09/14/19 12:28 09/14/19 18:06 09/15/19 00:20 09/15/19 05:27 Glucose (Fingerstick) 177 mg/dL (70-99) 149 mg/dL (70-99) 170 mg/dL (70-99) 142 mg/dL (70-99) Test 09/15/19 05:30 Sodium Level 137 mmol/L (136-145) Potassium Level 4.0 mmol/L (3.5-5.1) Chloride Level 98 mmol/L (98-107) Carbon Dioxide Level 30 mmol/L (21-32) Anion Gap 9 (6-14) Blood Urea Nitrogen 31 mg/dL (7-20) Creatinine 0.9 mg/dL (0.6-1.0) Estimated GFR (Cockcroft-Gault) 66.5 Glucose Level 155 mg/dL (70-99) Calcium Level 10.1 mg/dL (8.5-10.1) Triglycerides Level 206 mg/dL (0-150) I have reviewed the following CT with some reduction in fluid collections Problem List Problems Medical Problems: (1) Acute pancreatitis Status: Acute (2) Cholelithiasis Status: Acute Assessment/Plan s/p lap exploration cont supportive care. Expected prolonged recovery. OK to work on d/c planning. DAVON SIMMS MD September 15, 2019 10:37
--- NOTE | 2019-09-15 10:55 | PDOC ---
Objective: Objective: D/w nurse - planned to try thickening liquids yesterday but didn't due to nausea, might try later today. Vital Signs: Vital Signs Date Time Temp Pulse Resp B/P (MAP) Pulse Ox O2 Delivery O2 Flow Rate FiO2 09/15/19 10:08 135 30 136/73 (94) 95 Room Air 09/15/19 08:10 98.3 98.3 Labs: Laboratory Tests Test 09/14/19 12:28 09/14/19 18:06 09/15/19 00:20 09/15/19 05:27 Glucose (Fingerstick) 177 mg/dL (70-99) 149 mg/dL (70-99) 170 mg/dL (70-99) 142 mg/dL (70-99) Imaging: Videoswallow 09/12 Impression: Aspiration with thin liquid and nectar thick liquid barium. Moderate size lacunar residuals which are less when passing air valve was in place. Initial Videoswallow Study Results Pt demo'd SILENT aspiration of thin and nectar thick liquid via TSP w/trach capped. RN Johnson present and provided deep suction to assist w/clearing aspirate. Thin liquid via TSP was also deeply penetrated and poss trace aspirated w/Passy Luis Fernanod Valve in place. Swallow appeared safest for honey thick liquid w/Passy Independence Valve in place. With cap and PMV, puree had signif amts of vallecular residues associated that represented a risk of aspiration p.swallow and were not easily cleared w/liquid wash nor with dry swallows. IMPRESSIONS: Mod-severe pharyngeal dysphagia. Swallow appears safe for small amts of honey thick liquids for pleasure when pt is wearing the PMValve. Reduced hyolaryngeal excursion contributed to both incomplete bolus clearance through pharynx and to incomplete airway closure during swallow. As a result, pt experienced signif amts of puree vallecular residue p.swallow and penetration and aspiration during swallow w/thin and nectar consistencies (w/trach cap in place) Con't thin liquid aspiration risk was noted w/PMV in place. Pt's generalized weakness is likely the primary contributor to current dysphagia. Anticipate con't improvement w/additional progress in overall strength and medical condition. RECOMMENDATIONS: Pending ok of surgery, initiate allowing HONEY THICK LIQUID via CUP for pleasure with PASSY LUIS FERNANDO valve in place. Pt should NOT drink w/o valve in place. Written precautions provided to Johnson RN to post HOB pending ok of diet w/ MD. Will f/u per POC. CT A/P 09/13 Impression: 1. There are now 3 pigtail catheters as described, residual fluid collections as stated mostly smaller other than larger collection of the inferior left paracolic gutter. 2. There are small, left greater than right pleural effusions, compressive atelectasis of the left lower lobe. 3. There is cholelithiasis. PE: GEN: NAD LUNGS: trach/room air HEART: tachycardic ABD: soft, BS+ NEURO/PSYCH: sleeping, did not awaken during exam A/P: Gallstone pancreatitis, MOSF, nausea, dysphagia -- Speech eval noted, ?try honey thick liquids later pending nausea. Has Reglan ordered - good response to this in the past. Hemodynamically unstable?: No Is patient in severe pain?: No Is NPO status required?: No CYNDEE FALCON September 15, 2019 10:55
--- NOTE | 2019-09-15 11:02 | NUR ---
SS following up with discharge planning. SS reviewed pt chart and discussed with pt RN. Pt remains on room air. Pt continues to have issues with anxiety. Pt not tolerating honey thick liquids. Pt on TPN and has KAYLIN drains x3. Pt is on IV Zosyn and continues to work with PT/OT. SS attempted to contact pt's daughter with no success. Pt's daughter has not returned calls at this time. SS will continue to follow for discharge planning.
--- NOTE | 2019-09-15 11:55 | NUR ---
Dr. Hamilton said it was ok to take patient off the monitor for a couple hours to get a break from the room. Patient sitting at nurses station, hair was washed and braided, encouraged to keep coughing up sputum and manage anxiety.
--- NOTE | 2019-09-15 12:20 | PDOC ---
[facility] PROGRESS NOTE Chief Complaint Chief Complaint Acute hypoxic Respiratory failure requiring mechanical ventilation (now extubated for several days but still with tracheostomy) Tracheostomy bilateral pleural effusions/pulm edema Sepsis Severe Acute gallstone pancreatitis (not a surgical candidate at this time) with necrosis Acute kidney failure now requiring dialysis Salpingitis Gallstones (Calculus of gallbladder with acute cholecystitis without obstruc tion) HTN Leukocytosis Hypoxia Uterine fibroid Intractable pain Intractable nausea Covid 19 negative. Acute on chronic anemia EEG: No seizure activityFever - better currently - intermittent could be from underlying pancreatitis blood cults 08/21 - neg so far ? Ileus with vomiting Abd distention - U/S and CT reviewed s/p 0.4 L of opaque, debris-containing ascites was removed 08/23 Acute pancreatitis with persistent necrosis - 08/14 status post KAYLIN drain placement + C paropsilosis. s/p additional drains 08/25 Anemia - S/p PRBCs Cholelithiasis with thickening of the gallbladder wall. Leucocytosis improving JUANA, hyperkalemia, Metabolic acidosis off dialysis Acute hypoxic resp failure ,bilateral pleural effusion and atelectasis hypocalcemia Prediabetes HTN s/p trach ESRD on HD Hyperglycemia History of Present Illness History of Present Illness 09/15/2019 Patient seen and examined in the ICU She has an NG that is clamped we are hoping to start some clear liquids but she looks quite ill She is on IV TPN Meropenem changed to IV Zosyn (agree) She has Lind to bedside drainage She is semi-sedated with Precedex Chart reviewed Discussed with RN She remains critically ill Seen bedside. Hb 8. She was just a bit hypoxic, had a mucous plug suctioned. Able to vocalize well with speaking valve, tells me we are being very hard on her and she would like to be drugged back to sleep. She wants to wake up and feel better. On trach shield, T max 100.4. afebrile this a.m. 09/13/2019 Patient seen and examined in the ICU She is up in the chair very frail trying to talk a little shaky Discussed with RN Chart reviewed 09/12/2019 Patient seen and examined in the ICU Patient up in the chair Having a severe coughing episode with a lot of phlegm coming out of her tracheostomy Discussed with RN Discussed with physical therapy Chart reviewed 09/10,. feels well, has been out of room in wheelchair no complaint, still weak, some with not wanting to wear her valve on trach cont other, may be able to work with speech tomorrow, juan ramon OK to try, 09/09, anxiety is up today, she dislikes the valve still, shower and outside today . 09/08 she doesnt want to wear her passy-fantasma valve, discussed str and plan with her. speech following, needs swallow study, but needs to wear her valve longer, cont current able to walk some, walker 09/07 stronger, better, we discussed better oral care she would like to try swallow study, wants to try to eat, speech is following 09/07/2019 She remains in the ICU sitting up and working with OT, getting better if limit pain meds, may do better off the vent, Nurses trying to suction her, that is also improved, Chart reviewed 09/06/2019 Patient seen and examined in the ICU She had an episode yesterday of tachycardia and severe agitation we gave her some Ativan After that she seemed to have stroke symptoms but now that the Ativan has wore off her stroke symptoms have resolved She is on IV meropenem and daptomycin and micafungin Chart reviewed Discussed with RN Patient is still critically ill BRIEF OPERATIVE NOTE Pre-Op Diagnosis Pancreatitis with pseudocysts, suspected infection Post-Op Diagnosis same Procedure Performed CT abdominal Drains x 3 Surgeon Tesfaye Anesthesia Type: Conscious Sedation Findings 3 abdominal drains, 14F, with turbid pancreatic fluid and necrotic debris in each. Complications No immediate 08/26: Patient today somewhat restless and having bilious secretions from ET tube, imaging studies ordered, discussed with recruiting operations consultant. Pretty poor prognosis, hopefully is not a fistula, poor surgical candidate. 08/27: Imaging with no acute events, she seems more stable today compared to yesterday. Encouraged as much activity as possible patient at high risk for severe depression. Vitals/I&O Vitals/I&O: Vital Signs Date Time Temp Pulse Resp B/P (MAP) Pulse Ox O2 Delivery O2 Flow Rate FiO2 09/15/19 11:37 165 157/86 (109) 92 Room Air 09/15/19 10:08 30 09/15/19 08:10 98.3 98.3 I & O 09/14/19 09/14/19 09/15/19 15:00 23:00 07:00 Intake Total 50 ml 981 ml 1204.3 ml Output Total 845 ml 658 ml 480 ml Balance -795 ml 323 ml 724.3 ml Physical Exam Physical Exam: GENERAL: Just got up in the chair having a lot of coughing HEENT: Oral cavity clear, NGT NECK: Trach shield LUNGS: A lot of coughing with productive sputum from the tracheostomy site HEART: S1, S2, regular ABDOMEN: mod distention, hypoactive BS, tender, + drains x 3 : Lind (08/01) EXTREMITIES: Generalized edema, improving, no cyanosis, SCDs bilaterally SKIN: Warm and dry. No generalized rash. ORDNANCE ENGINEER: Very weak RUE-PICC (08/17) clean General: Alert, Cooperative, No acute distress Heart: Regular rate, Normal S1, Normal S2, No murmurs, Gallops Lungs: Other (Good air movement but having a lot of productive sputum from her tracheostomy site) Abdomen: Soft, No tenderness Extremities: No clubbing, No cyanosis, No edema, Normal pulses, No tenderness/swelling Skin: Other (warm, dry) Labs Labs: Laboratory Tests Test 09/14/19 12:28 09/14/19 18:06 09/15/19 00:20 09/15/19 05:27 Glucose (Fingerstick) 177 mg/dL (70-99) 149 mg/dL (70-99) 170 mg/dL (70-99) 142 mg/dL (70-99) Test 09/15/19 05:30 Sodium Level 137 mmol/L (136-145) Potassium Level 4.0 mmol/L (3.5-5.1) Chloride Level 98 mmol/L (98-107) Carbon Dioxide Level 30 mmol/L (21-32) Anion Gap 9 (6-14) Blood Urea Nitrogen 31 mg/dL (7-20) Creatinine 0.9 mg/dL (0.6-1.0) Estimated GFR (Cockcroft-Gault) 66.5 Glucose Level 155 mg/dL (70-99) Calcium Level 10.1 mg/dL (8.5-10.1) Triglycerides Level 206 mg/dL (0-150) Assessment and Plan Assessmemt and Plan Problems Medical Problems: (1) Acute pancreatitis Status: Acute (2) Cholelithiasis Status: Acute Acute hypoxic Respiratory failure requiring mechanical ventilation was initially intubated on 07/10 was off for couple of days now back on Severe gallstone pancreatitis (not a surgical candidate at this time) with necrosis Tracheostomy bilateral pleural effusions/pulm edema Severe sepsis Acute kidney failure now requiring dialysis Salpingitis Gallstones (Calculus of gallbladder with acute cholecystitis without obstruction) HTN Leukocytosis Hypoxia Uterine fibroid Intractable pain Intractable nausea Covid 19 negative. Acute on chronic anemia EEG: No seizure activityFever - better currently - intermittent could be from underlying pancreatitis blood cults 08/21 - neg so far ? Ileus with vomiting Abd distention - U/S and CT reviewed s/p 0.4 L of opaque, debris-containing ascites was removed 08/23 Acute pancreatitis with persistent necrosis - 08/14 status post KAYLIN drain placement + C paropsilosis. s/p additional drains 08/25 Anemia - S/p PRBCs Cholelithiasis with thickening of the gallbladder wall. Leucocytosis improving JUANA, hyperkalemia, Metabolic acidosis off dialysis Acute hypoxic resp failure ,bilateral pleural effusion and atelectasis hypocalcemia Prediabetes HTN s/p trach ESRD on HD Hyperglycemia Plan ICU monitoring Wound care Hold off on Ativan for now as she gets too weak with it Humidified O2 via nasal cannula for now but we can use trach shield as backup NG suctioning Nebulizers Continue IV antibiotics and micafungin Sedation with Precedex PRN TPN protocol Continue Lind to bedside drainage Tracheostomy care Hope to eventually move towards decannulation (we have a speaking valve for now) Trend labs Appreciate subspecialist input She is still critically ill I am still very concerned about her long-term prognosis ! (she scored a 9 on [place] criteria 3 weeks ago). Total time 32-minute Comment Review of Relevant I have reviewed the following items kolby (where applicable) has been applied. Medications: Current Medications Medications (Trade) Dose Ordered Sig/Yvon Route PRN Reason Start Time Stop Time Status Last Admin Dose Admin Potassium Chloride 70 meq/ Magnesium Sulfate 20 meq/ Multivitamins 10 ml/Chromium/ Copper/Manganese/ Seleni/Zn 1 ml/ Insulin Human Regular 15 unit/ Total Parenteral Nutrition/Amino Acids/Dextrose/ Fat Emulsion Intravenous 1,800 ml @ 75 mls/hr TPN CONT IV 09/14/19 22:00 09/15/19 21:59 5/27/20 22:03 Hemodynamically unstable?: No Is patient in severe pain?: No Is NPO status required?: No BEBO KIRBY III DO September 15, 2019 12:20
[2019-09-15] MEDS: TPN PER PHARMACY MC PRN (13:08)
--- NOTE | 2019-09-15 13:10 | NUR ---
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, 8 inches Weight: 75.918720 kg Current diet: NPO LABS: Sodium: 137 Potassium: 4 Chloride: 98 Calcium: 10.1 Corrected Calcium: 11.46 Magnesium: 2.3 CO2: 30 SCr: 0.9 Glucose: 142-170 Albumin: 2.3 AST: 26 ALT: 25 TPN FORMULA: TPN TYPE: Central Continuous AMINO ACIDS: 75 gm DEXTROSE: 250 gm LIPIDS: 40 gm POTASSIUM CHLORIDE: 70 mEq MAGNESIUM: 20 mEq INSULIN: 15 units MULTIPLE VITAMIN: 10 ml TRACE ELEMENTS: 1 ml(s) TPN PLAN: TG 206- cont current lipids. Labs WNL and BG at goal. -CMP in AM per ID. R: Continue same TPN formula. Will monitor electrolytes, glucose, and tolerance to TPN. MIKAYLA CHU RPH, 09/15/19 [id number]
[2019-09-15] MEDS: IV NORMAL SALINE 1000ML BAG 1,000 ML IV SCH (13:37)
[2019-09-15] MEDS: ENOXAPARIN 40 MG/0.4 ML SYRINGE. SQ SCH (17:34)
[2019-09-15] MEDS ORDERED: DEXTROSE 70% IV SCH ×8 (22:00)
[2019-09-15] MEDS ORDERED: [UNRECOGNIZED DRUG - OTHER] IV SCH ×8 (22:00)
[2019-09-15] MEDS ORDERED: TOTAL PARENTERAL NUTRITION IV SCH ×8 (22:00)
[2019-09-15] MEDS ORDERED: AMINO ACID IV SCH ×8 (22:00)
[2019-09-16] VITALS (25 sets, daily range): BP systolic 81–148; BP diastolic 49–85
[2019-09-16] MEDS: INSULIN LISPRO 300 UNITS/3 ML VIAL. SQ SCH ×4 (00:02→17:00)
[2019-09-16] MEDS: PIPERACILLIN/TAZOBACTAM 3.375 GM in IV NORMAL SALINE 50ML 50 ML IV SCH ×3 (06:12→16:47)
[2019-09-16] MEDS: ONDANSETRON PF 4 MG/2 ML VIAL. IV PRN ×3 (06:21→20:58)
[2019-09-16 06:25] LABS: BASO % 0 % (0-3); EOS # 0.1 x10^3/uL (0.0-0.7); EOS % 1 % (0-3); HEMATOCRIT 24.5 % (36.0-47.0); LYMPH # 2.4 x10^3/uL (1.0-4.8); LYMPH % 15 % (24-48); MEAN CORPUSCULAR HEMOGLOBIN 28 pg (25-35); MEAN CORPUSCULAR HGB CONC 33 g/dL (31-37); MEAN CORPUSCULAR VOLUME 86 fL (79-100); MONO # 1.1 x10^3/uL (0.0-1.1); MONO % 7 % (0-9); NEUT # 12.3 x10^3/uL (1.8-7.7); NEUT % 77 % (31-73); PLATELET COUNT 440 x10^3/uL (140-400); RED BLOOD COUNT 2.83 x10^6/uL (3.50-5.40); RED CELL DISTRIBUTION WIDTH 19.2 % (11.5-14.5)
[2019-09-16 06:35] LABS: ALBUMIN 2.1 g/dL (3.4-5.0); ALBUMIN/GLOBULIN RATIO 0.4 (1.0-1.7); CREATININE 0.9 mg/dL (0.6-1.0); GFR 66.5; POTASSIUM 3.8 mmol/L (3.5-5.1); TOTAL BILIRUBIN 0.7 mg/dL (0.2-1.0); TOTAL PROTEIN 7.3 g/dL (6.4-8.2)
--- NOTE | 2019-09-16 08:14 | PDOC ---
[employer] PROGRESS NOTE Chief Complaint Chief Complaint Acute hypoxic Respiratory failure requiring mechanical ventilation (now extubated for several days but still with tracheostomy) Tracheostomy bilateral pleural effusions/pulm edema Sepsis Severe Acute gallstone pancreatitis (not a surgical candidate at this time) with necrosis Acute kidney failure now requiring dialysis Salpingitis Gallstones (Calculus of gallbladder with acute cholecystitis without obstruc tion) HTN Leukocytosis Hypoxia Uterine fibroid Intractable pain Intractable nausea Covid 19 negative. Acute on chronic anemia EEG: No seizure activityFever - better currently - intermittent could be from underlying pancreatitis blood cults 08/21 - neg so far ? Ileus with vomiting Abd distention - U/S and CT reviewed s/p 0.4 L of opaque, debris-containing ascites was removed 08/23 Acute pancreatitis with persistent necrosis - 08/14 status post KAYLIN drain placement + C paropsilosis. s/p additional drains 08/25 Anemia - S/p PRBCs Cholelithiasis with thickening of the gallbladder wall. Leucocytosis improving JUANA, hyperkalemia, Metabolic acidosis off dialysis Acute hypoxic resp failure ,bilateral pleural effusion and atelectasis hypocalcemia Prediabetes HTN s/p trach ESRD on HD Hyperglycemia History of Present Illness History of Present Illness 09/16/2019 Patient seen and examined in the ICU once again She is back on NG suction On IV Zosyn Has IV TPN Sedated with Precedex but anxious still Appears somewhat clammy and pale Chart reviewed Discussed with RN She remains critically ill 09/15/2019 Patient seen and examined in the ICU She has an NG that is clamped we are hoping to start some clear liquids but she looks quite ill She is on IV TPN Meropenem changed to IV Zosyn (agree) She has Lind to bedside drainage She is semi-sedated with Precedex Chart reviewed Discussed with RN She remains critically ill Seen bedside. Hb 8. She was just a bit hypoxic, had a mucous plug suctioned. Able to vocalize well with speaking valve, tells me we are being very hard on her and she would like to be drugged back to sleep. She wants to wake up and feel better. On trach shield, T max 100.4. afebrile this a.m. 09/13/2019 Patient seen and examined in the ICU She is up in the chair very frail trying to talk a little shaky Discussed with RN Chart reviewed 09/12/2019 Patient seen and examined in the ICU Patient up in the chair Having a severe coughing episode with a lot of phlegm coming out of her tracheostomy Discussed with RN Discussed with physical therapy Chart reviewed 09/10,. feels well, has been out of room in wheelchair no complaint, still weak, some with not wanting to wear her valve on trach cont other, may be able to work with speech tomorrow, juan ramon [place] to try, 09/09, anxiety is up today, she dislikes the valve still, shower and outside today . 09/08 she doesnt want to wear her passy-fantasma valve, discussed str and plan with her. speech following, needs swallow study, but needs to wear her valve longer, cont current able to walk some, walker 09/07 stronger, better, we discussed better oral care she would like to try swallow study, wants to try to eat, speech is follow ing 09/07/2019 She remains in the ICU sitting up and working with OT, getting better if limit pain meds, may do better off the vent, Nurses trying to suction her, that is also improved, Chart reviewed 09/06/2019 Patient seen and examined in the ICU She had an episode yesterday of tachycardia and severe agitation we gave her some Ativan After that she seemed to have stroke symptoms but now that the Ativan has wore off her stroke symptoms have resolved She is on IV meropenem and daptomycin and micafungin Chart reviewed Discussed with RN Patient is still critically ill BRIEF OPERATIVE NOTE Pre-Op Diagnosis Pancreatitis with pseudocysts, suspected infection Post-Op Diagnosis same Procedure Performed CT abdominal Drains x 3 Surgeon Tesfaye Anesthesia Type: Conscious Sedation Findings 3 abdominal drains, 14F, with turbid pancreatic fluid and necrotic debris in ea ch. Complications No immediate 08/26: Patient today somewhat restless and having bilious secretions from ET tube, imaging studies ordered, discussed with consultants intern. Pretty poor prognosis, hopefully is not a fistula, poor surgical candidate. 08/27: Imaging with no acute events, she seems more stable today compared to yesterday. Encouraged as much activity as possible patient at high risk for severe depression. Vitals/I&O Vitals/I&O: Vital Signs Date Time Temp Pulse Resp B/P (MAP) Pulse Ox O2 Delivery O2 Flow Rate FiO2 5/29/20 06:00 115 26 115/65 (82) 94 Room Air 09/16/19 04:00 99.3 99.3 09/15/19 21:34 8.0 I & O 09/15/19 09/15/19 09/16/19 14:59 22:59 06:59 Intake Total 50 ml 909 ml Output Total 771 ml 735 ml 355 ml Balance -721 ml 174 ml -355 ml Physical Exam Physical Exam: GENERAL: Was asleep awoke seems a little agitated looks very very ill HEENT: Oral cavity clear, NGT NECK: Trach shield LUNGS: A lot of coughing with productive sputum from the tracheostomy site HEART: S1, S2, regular ABDOMEN: mod distention, hypoactive BS, tender, + drains x 3 : Lind (08/01) EXTREMITIES: Generalized edema, improving, no cyanosis, SCDs bilaterally SKIN: Warm and dry. No generalized rash. [employer] ENGINEER: Very weak RUE-PICC (08/17) clean General: Alert, Cooperative, No acute distress Heart: Regular rate, Normal S1, Normal S2, No murmurs, Gallops Lungs: Other (Good air movement but having a lot of productive sputum from her tracheostomy site) Abdomen: Soft, No tenderness Extremities: No clubbing, No cyanosis, No edema, Normal pulses, No tenderness/swelling Skin: Other (warm, dry) Labs Labs: Laboratory Tests Test 09/15/19 12:40 09/15/19 17:50 09/15/19 23:45 09/16/19 05:50 Glucose (Fingerstick) 237 mg/dL (70-99) 171 mg/dL (70-99) 168 mg/dL (70-99) White Blood Count 16.0 x10^3/uL (4.0-11.0) Red Blood Count 2.83 x10^6/uL (3.50-5.40) Hemoglobin 8.0 g/dL (12.0-15.5) Hematocrit 24.5 % (36.0-47.0) Mean Corpuscular Volume 86 fL (79-100) Mean Corpuscular Hemoglobin 28 pg (25-35) Mean Corpuscular Hemoglobin Concent 33 g/dL (31-37) Red Cell Distribution Width 19.2 % (11.5-14.5) Platelet Count 440 x10^3/uL (140-400) Neutrophils (%) (Auto) 77 % (31-73) Lymphocytes (%) (Auto) 15 % (24-48) Monocytes (%) (Auto) 7 % (0-9) Eosinophils (%) (Auto) 1 % (0-3) Basophils (%) (Auto) 0 % (0-3) Neutrophils # (Auto) 12.3 x10^3/uL (1.8-7.7) Lymphocytes # (Auto) 2.4 x10^3/uL (1.0-4.8) Monocytes # (Auto) 1.1 x10^3/uL (0.0-1.1) Eosinophils # (Auto) 0.1 x10^3/uL (0.0-0.7) Basophils # (Auto) 0.0 x10^3/uL (0.0-0.2) Sodium Level 138 mmol/L (136-145) Potassium Level 3.8 mmol/L (3.5-5.1) Chloride Level 99 mmol/L (98-107) Carbon Dioxide Level 31 mmol/L (21-32) Anion Gap 8 (6-14) Blood Urea Nitrogen 36 mg/dL (7-20) Creatinine 0.9 mg/dL (0.6-1.0) Estimated GFR (Cockcroft-Gault) 66.5 BUN/Creatinine Ratio 40 (6-20) Glucose Level 146 mg/dL (70-99) Calcium Level 10.0 mg/dL (8.5-10.1) Total Bilirubin 0.7 mg/dL (0.2-1.0) Aspartate Amino Transf (AST/SGOT) 19 U/L (15-37) Alanine Aminotransferase (ALT/SGPT) 20 U/L (14-59) Alkaline Phosphatase 111 U/L (46-116) Total Protein 7.3 g/dL (6.4-8.2) Albumin 2.1 g/dL (3.4-5.0) Albumin/Globulin Ratio 0.4 (1.0-1.7) Test 09/16/19 06:18 Glucose (Fingerstick) 143 mg/dL (70-99) Assessment and Plan Assessmemt and Plan Problems Medical Problems: (1) Acute pancreatitis Status: Acute (2) Cholelithiasis Status: Acute Acute hypoxic Respiratory failure requiring mechanical ventilation was initially intubated on 07/10 was off for couple of days now back on Severe gallstone pancreatitis (not a surgical candidate at this time) with necrosis Tracheostomy bilateral pleural effusions/pulm edema Severe sepsis Acute kidney failure now requiring dialysis Salpingitis Gallstones (Calculus of gallbladder with acute cholecystitis without obstruction) HTN Leukocytosis Hypoxia Uterine fibroid Intractable pain Intractable nausea Covid 19 negative. Acute on chronic anemia EEG: No seizure activityFever - better currently - intermittent could be from underlying pancreatitis blood cults 08/21 - neg so far ? Ileus with vomiting Abd distention - U/S and CT reviewed s/p 0.4 L of opaque, debris-containing ascites was removed 08/23 Acute pancreatitis with persistent necrosis - 08/14 status post KAYLIN drain placement + C paropsilosis. s/p additional drains 08/25 Anemia - S/p PRBCs Cholelithiasis with thickening of the gallbladder wall. Leucocytosis improving JUANA, hyperkalemia, Metabolic acidosis off dialysis Acute hypoxic resp failure ,bilateral pleural effusion and atelectasis hypocalcemia Prediabetes HTN s/p trach ESRD on HD Hyperglycemia Plan ICU monitoring Wound care Hold off on Ativan for now as she gets too weak with it Humidified O2 via nasal cannula for now but we can use trach shield as backup NG suctioning Nebulizers Continue IV antibiotics and micafungin Sedation with Precedex PRN TPN protocol Continue Lind to bedside drainage Tracheostomy care Hope to eventually move towards decannulation (we have a speaking valve for now) Trend labs Appreciate subspecialist input She is still critically ill I am still very concerned about her long-term prognosis ! (she scored a 9 on [employer] criteria 3 weeks ago). Total time 33-minute Comment Review of Relevant I have reviewed the following items kolby (where applicable) has been applied. Medications: Current Medications Medications (Trade) Dose Ordered Sig/Yvon Route PRN Reason Start Time Stop Time Status Last Admin Dose Admin Potassium Chloride 70 meq/ Magnesium Sulfate 20 meq/ Multivitamins 10 ml/Chromium/ Copper/Manganese/ Seleni/Zn 1 ml/ Insulin Human Regular 15 unit/ Total Parenteral Nutrition/Amino Acids/Dextrose/ Fat Emulsion Intravenous 1,800 ml @ 75 mls/hr TPN CONT IV 09/15/19 22:00 09/16/19 21:59 09/15/19 22:33 Hemodynamically unstable?: No Is patient in severe pain?: No Is NPO status required?: No BEBO KIRBY III DO September 16, 2019 08:14
[2019-09-16] MEDS: POLYVINYL ALCOHOL 1.4% OPHTH SOLUTION 15ML BOTTLE. OU PRN (10:08)
[2019-09-16] MEDS: FUROSEMIDE 40 MG/4 ML VIAL. IVP SCH ×2 (10:08→13:29)
[2019-09-16] MEDS: PANTOPRAZOLE IV PUSH 40 MG VIAL. IVP SCH (10:08)
--- NOTE | 2019-09-16 10:10 | PDOC ---
Infectious Disease Note Subjective: Subjective Remains on trach on room air off vent Afebrile last 24-hour Discussed with RN, Vital Signs: Vital Signs Vital Signs Date Time Temp Pulse Resp B/P (MAP) Pulse Ox O2 Delivery O2 Flow Rate FiO2 09/16/19 08:00 Room Air 09/16/19 06:00 115 26 115/65 (82) 94 09/16/19 04:00 99.3 99.3 09/15/19 21:34 8.0 Physical Exam: PHYSICAL EXAM GENERAL: Slightly anxious HEENT: Oral cavity clear, NGT NECK: Trach present LUNGS: A lot of coughing with productive sputum from the tracheostomy site HEART: S1, S2, regular ABDOMEN: mod distention, hypoactive BS, mildly tender, + drains x 2 : Lind (08/01) EXTREMITIES: Generalized edema, improving, no cyanosis, SCDs bilaterally SKIN: Warm and dry. No generalized rash. 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 RUE-PICC (08/17) clean Medications: Inpatient Meds: Current Medications Medications (Trade) Dose Ordered Sig/Yvon Start Time Stop Time Status Last Admin Dose Admin Acetaminophen (Tylenol Supp) 650 mg PRN Q6HRS PRN 07/12/19 10:30 08/23/19 09:12 650 MG Acetaminophen (Tylenol) 650 mg PRN Q6HRS PRN 07/09/19 03:36 08/31/19 10:25 DC 08/04/19 19:56 650 MG Albumin Human 100 ml @ 100 mls/hr 1X PRN PRN 09/06/19 01:30 Albuterol Sulfate (Ventolin Neb Soln) 2.5 mg 1X ONCE 07/05/19 22:30 07/05/19 22:31 DC 07/06/19 00:56 2.5 MG Alteplase, Recombinant (Cathflo For Central Catheter Clearance) 1 mg 1X ONCE 08/12/19 10:45 08/12/19 10:46 DC 08/12/19 11:44 1 MG Amino Acids/ Glycerin/ Electrolytes 1,000 ml @ 75 mls/hr [id number] 08/08/19 21:15 UNV Artificial Tears (Artificial Tears) 1 drop PRN Q15MIN PRN 08/17/19 05:30 09/11/19 11:15 1 DROP Atenolol (Tenormin) 100 mg DAILY 07/05/19 09:00 07/04/19 20:08 DC Atropine Sulfate (ATROPINE 0.5mg SYRINGE) 0.5 mg PRN Q5MIN PRN 07/21/19 08:15 Barium Sulfate (Varibar Thin Liquid Apple) 148 gm 1X ONCE 09/13/19 11:45 09/13/19 11:49 DC Benzocaine (Hurricaine One) 1 spray 1X ONCE 07/08/19 14:30 07/08/19 14:31 DC 07/08/19 16:38 1 SPRAY Bisacodyl (Dulcolax Supp) 10 mg STK-MED ONCE 08/15/19 10:59 08/15/19 10:59 DC Bumetanide (Bumex) 2 mg DAILY 08/26/19 10:00 09/05/19 17:15 DC 09/05/19 08:07 2 MG Bupivacaine HCl/ Epinephrine Bitart (Sensorcain-Epi 0.5%-1:[id number] Mpf) 30 ml STK-MED ONCE 08/15/19 10:58 08/15/19 10:58 DC 08/15/19 12:01 7 ML Calcium Carbonate/ Glycine (Tums) 500 mg PRN AFTMEALHC PRN 07/06/19 17:45 08/31/19 10:25 DC Calcium Chloride 1000 mg/Sodium Chloride 110 ml @ 220 mls/hr 1X ONCE 07/05/19 22:30 07/05/19 22:59 DC 07/05/19 22:11 220 MLS/HR Calcium Chloride 3000 mg/Sodium Chloride 1,030 ml @ 50 mls/hr [id number] 07/07/19 08:00 07/09/19 15:23 DC 07/09/19 02:17 50 MLS/HR Calcium Gluconate (Calcium Gluconate) 2,000 mg 1X ONCE 07/07/19 02:15 07/07/19 02:16 DC 07/07/19 02:19 2,000 MG Calcium Gluconate 1000 mg/Sodium Chloride 110 ml @ 220 mls/hr 1X ONCE 07/06/19 03:30 07/06/19 03:59 DC 07/06/19 03:21 220 MLS/HR Calcium Gluconate 2000 mg/Sodium Chloride 120 ml @ 220 mls/hr 1X ONCE 07/06/19 07:30 07/06/19 08:02 DC 07/06/19 09:05 220 MLS/HR Cefepime HCl (Maxipime) 2 gm Q12HR 07/13/19 09:00 07/27/19 09:58 DC 07/26/19 20:56 2 GM Cellulose (Surgicel Fibrillar 1x2) 1 each STK-MED ONCE 07/25/19 11:00 07/25/19 11:01 DC Cellulose (Surgicel Hemostat 2x14) 1 each STK-MED ONCE 08/15/19 10:58 08/15/19 10:59 DC Cellulose (Surgicel Hemostat 4x8) 1 each STK-MED ONCE 08/15/19 10:58 08/15/19 10:59 DC Cyclobenzaprine HCl (Flexeril) 10 mg PRN Q6HRS PRN 08/18/19 10:45 Daptomycin 430 mg/ Sodium Chloride 50 ml @ 100 mls/hr Q24H 08/13/19 13:00 08/18/19 20:58 DC 08/18/19 13:00 100 MLS/HR Daptomycin 450 mg/ Sodium Chloride 50 ml @ 100 mls/hr Q24H 09/04/19 09:00 09/08/19 08:30 DC 09/07/19 09:25 100 MLS/HR Daptomycin 485 mg/ Sodium Chloride 50 ml @ 100 mls/hr Q24H 08/22/19 11:00 08/30/19 07:44 DC 08/29/19 13:10 100 MLS/HR Daptomycin 500 mg/ Sodium Chloride 50 ml @ 100 mls/hr Q48H 07/13/19 08:30 07/29/19 10:07 DC 07/29/19 09:57 100 MLS/HR Dexamethasone Sodium Phosphate (Decadron) 4 mg STK-MED ONCE 08/15/19 10:56 08/15/19 10:57 DC Dexmedetomidine HCl 400 mcg/ Sodium Chloride 100 ml @ 0 mls/hr CONT PRN 07/21/19 08:15 09/16/19 00:00 5.4 MLS/HR Dextrose (Dextrose 50%-Water Syringe) 12.5 gm PRN Q15MIN PRN 07/04/19 09:30 Digoxin (Lanoxin) 125 mcg 1X ONCE 07/07/19 18:00 07/07/19 18:01 DC 07/07/19 17:10 125 MCG Diphenhydramine HCl (Benadryl) 25 mg 1X PRN PRN 08/12/19 15:45 08/13/19 15:44 DC Duloxetine HCl (Cymbalta) 30 mg DAILY 08/28/19 14:00 08/31/19 10:25 DC 08/29/19 09:48 30 MG Enoxaparin Sodium (Lovenox 100mg Syringe) 100 mg Q12HR 08/09/19 21:00 UNV Enoxaparin Sodium (Lovenox 40mg Syringe) 40 mg Q24H 09/04/19 17:00 09/15/19 17:34 40 MG Etomidate (Amidate) 8 mg 1X ONCE 07/11/19 08:30 07/11/19 08:31 DC 07/11/19 08:33 8 MG Fentanyl Citrate (Fentanyl 2ml Vial) 25 mcg PRN Q4HRS PRN 09/05/19 13:15 09/15/19 16:38 25 MCG Fentanyl Citrate (Fentanyl 5ml Vial) 250 mcg 1X ONCE 08/26/19 09:15 08/26/19 09:16 DC 08/26/19 09:30 50 MCG Furosemide (Lasix) 40 mg [id number] 09/06/19 14:00 09/15/19 14:31 40 MG Haloperidol Lactate (Haldol Inj) 3 mg 1X ONCE 08/22/19 14:30 08/22/19 14:31 DC 08/22/19 14:37 3 MG Heparin Sodium (Porcine) (Hep Lock Adult) 500 unit STK-MED ONCE 07/26/19 09:29 07/26/19 09:30 DC Heparin Sodium (Porcine) (Heparin Sodium) 5,000 unit Q12HR 08/15/19 21:00 08/25/19 09:59 DC 08/24/19 20:57 5,000 UNIT Heparin Sodium (Porcine) 1000 unit/Sodium Chloride 1,001 ml @ 1,001 mls/hr 1X ONCE 08/15/19 12:00 08/15/19 12:59 DC Hydromorphone HCl (Dilaudid Standard [employer]) 12 mg STK-MED ONCE 08/19/19 15:50 5/12/20 11:24 DC Hydromorphone HCl (Dilaudid) 1 mg PRN Q4HRS PRN 08/22/19 19:00 09/05/19 17:10 DC 09/05/19 06:25 1 MG Info (CONTRAST GIVEN -- Rx MONITORING) 1 each PRN DAILY PRN 07/18/19 11:45 07/20/19 11:44 DC Info (Icu Electrolyte Protocol) 1 ea CONT PRN PRN 07/17/19 13:15 Info (PHARMACY MONITORING -- do not chart) 1 each PRN DAILY PRN 08/12/19 15:45 09/13/19 14:14 DC Info (Tpn Per Pharmacy) 1 each PRN DAILY PRN 07/06/19 12:30 UNV Insulin Human Lispro (HumaLOG) 0-9 UNITS Q6HRS 07/04/19 09:30 09/16/19 00:02 4 UNITS Insulin Human Regular (HumuLIN R VIAL) 5 unit 1X ONCE 07/05/19 22:30 07/05/19 22:31 DC 07/05/19 22:14 5 UNIT Iohexol (Omnipaque 240 Mg/ml) 30 ml 1X ONCE 07/18/19 11:30 07/18/19 11:33 DC 07/18/19 11:30 30 ML Iohexol (Omnipaque 300 Mg/ml) 50 ml STK-MED ONCE 08/15/19 10:58 08/15/19 10:59 DC Iohexol (Omnipaque 350 Mg/ml) 90 ml 1X ONCE 07/04/19 03:30 07/04/19 03:31 DC 07/04/19 03:25 90 ML Ketorolac Tromethamine (Toradol 30mg Vial) 30 mg 1X ONCE 07/04/19 03:00 07/04/19 03:01 DC 07/04/19 02:54 30 MG Lidocaine HCl (Buffered Lidocaine 1%) 6 ml 1X ONCE 08/30/19 14:15 08/30/19 14:16 DC 08/30/19 14:15 3 ML Lidocaine HCl (Glydo (Lidocaine) Jelly) 1 ramu 1X ONCE 07/08/19 14:30 07/08/19 14:31 DC 07/08/19 16:38 1 RAMU Lidocaine HCl (Xylocaine-Mpf 1% 2ml Vial) 2 ml PRN 1X PRN 08/15/19 07:00 08/16/19 06:59 DC Linezolid/Dextrose 300 ml @ 300 mls/hr Q12HR 09/04/19 09:00 09/07/19 08:11 DC 09/06/19 21:08 300 MLS/HR Lorazepam (Ativan Inj) 2 mg PRN Q4HRS PRN 09/04/19 19:15 09/13/19 23:23 2 MG Magnesium Sulfate 50 ml @ 25 mls/hr 1X ONCE 08/28/19 09:00 08/28/19 10:59 DC 08/28/19 10:44 25 MLS/HR Meropenem 1 gm/ Sodium Chloride 100 ml @ 200 mls/hr Q8HRS 08/16/19 14:00 09/09/19 09:31 DC 09/09/19 05:53 200 MLS/HR Meropenem 500 mg/ Sodium Chloride 50 ml @ 100 mls/hr Q6HRS 09/12/19 18:00 09/14/19 09:59 DC 09/14/19 06:02 100 MLS/HR Metoclopramide HCl (Reglan Vial) 10 mg PRN Q3HRS PRN 08/27/19 16:45 09/01/19 04:25 10 MG Metoprolol Tartrate (Lopressor Vial) 5 mg 1X ONCE 09/04/19 15:15 09/04/19 15:16 DC 09/04/19 15:31 5 MG Metronidazole 100 ml @ 100 mls/hr Q8HRS 08/02/19 10:00 08/09/19 08:10 DC 08/09/19 06:04 100 MLS/HR Micafungin Sodium 100 mg/Dextrose 100 ml @ 100 mls/hr Q24H 08/22/19 11:00 09/14/19 09:59 DC 09/13/19 12:17 100 MLS/HR Midazolam HCl (Versed) 5 mg 1X ONCE 08/26/19 09:15 08/26/19 09:16 DC 08/26/19 09:30 1 MG Midazolam HCl 100 mg/Sodium Chloride 100 ml @ 7 mls/hr CONT PRN 07/16/19 16:00 07/27/19 15:35 7 MLS/HR Midazolam HCl 50 mg/Sodium Chloride 50 ml @ 0 mls/hr CONT PRN 07/11/19 08:15 07/16/19 15:59 DC 07/14/19 22:39 7 MLS/HR Morphine Sulfate (Morphine Sulfate) 2 mg PRN Q2HR PRN 07/04/19 05:00 07/05/19 14:15 DC 07/05/19 12:26 2 MG Multi-Ingred Cream/Lotion/Oil/ Oint (Artificial Tears Eye Ointment) 1 ramu PRN Q1HR PRN 07/13/19 17:30 08/01/19 08:19 1 RAMU Naloxone HCl (Narcan) 0.4 mg PRN Q2MIN PRN 08/15/19 14:30 UNV Norepinephrine Bitartrate 8 mg/ Dextrose 258 ml @ 17.299 mls/ hr CONT PRN 07/05/19 15:30 08/05/19 09:19 DC 08/02/19 12:48 20.9 MLS/HR Ondansetron HCl (Zofran) 4 mg STK-MED ONCE 08/15/19 10:56 08/15/19 10:57 DC Pantoprazole Sodium (PROTONIX VIAL for IV PUSH) 40 mg DAILYAC 07/04/19 11:30 09/15/19 08:15 40 MG Phenylephrine HCl (PHENYLEPHRINE in 0.9% NACL PF) 1 mg STK-MED ONCE 08/15/19 12:34 08/15/19 12:34 DC Piperacillin Sod/ Tazobactam Sod 3.375 gm/Sodium Chloride 50 ml @ 100 mls/hr Q6HRS 09/14/19 12:00 09/16/19 06:12 100 MLS/HR Piperacillin Sod/ Tazobactam Sod 4.5 gm/Sodium Chloride 100 ml @ 200 mls/hr 1X ONCE 07/04/19 06:00 07/04/19 06:29 DC 07/04/19 05:44 200 MLS/HR Potassium Chloride 110 meq/ Magnesium Sulfate 20 meq/ Multivitamins 10 ml/Chromium/ Copper/Manganese/ Seleni/Zn 1 ml/ Insulin Human Regular 15 unit/ Total Parenteral Nutrition/Amino Acids/Dextrose/ Fat Emulsion Intravenous 1,800 ml @ 75 mls/hr TPN CONT 09/11/19 22:00 09/12/19 21:59 DC 09/11/19 22:48 75 MLS/HR Potassium Chloride 15 meq/ Bicarbonate Dialysis Soln w/ out KCl 5,007.5 ml @ 1,000 mls/ hr Q5H1M 07/17/19 20:00 07/21/19 13:08 DC 07/20/19 18:14 1,000 MLS/HR Potassium Chloride 20 meq/ Bicarbonate Dialysis Soln w/ out KCl 5,010 ml @ 1,000 mls/hr Q5H1M 07/13/19 16:00 07/17/19 19:59 DC 07/17/19 14:54 1,000 MLS/HR Potassium Chloride 70 meq/ Magnesium Sulfate 20 meq/ Multivitamins 10 ml/Chromium/ Copper/Manganese/ Seleni/Zn 1 ml/ Insulin Human Regular 15 unit/ Total Parenteral Nutrition/Amino Acids/Dextrose/ Fat Emulsion Intravenous 1,800 ml @ 75 mls/hr TPN CONT 09/15/19 22:00 09/16/19 21:59 09/15/19 22:33 75 MLS/HR Potassium Chloride 75 meq/ Magnesium Sulfate 15 meq/ Multivitamins 10 ml/Chromium/ Copper/Manganese/ Seleni/Zn 0.5 ml/ Insulin Human Regular 15 unit/ Total Parenteral Nutrition/Amino Acids/Dextrose/ Fat Emulsion Intravenous 1,920 ml @ 80 mls/hr TPN CONT 08/27/19 22:00 08/28/19 21:59 DC 08/27/19 22:41 80 MLS/HR Potassium Chloride 75 meq/ Magnesium Sulfate 15 meq/Calcium Gluconate 8 meq/ Multivitamins 10 ml/Chromium/ Copper/Manganese/ Seleni/Zn 0.5 ml/ Insulin Human Regular 15 unit/ Total Parenteral Nutrition/Amino Acids/Dextrose/ Fat Emulsion Intravenous 1,920 ml @ 80 mls/hr TPN CONT 08/25/19 22:00 08/26/19 21:59 DC 08/25/19 22:28 80 MLS/HR Potassium Chloride 75 meq/ Magnesium Sulfate 15 meq/Calcium Gluconate 8 meq/ Multivitamins 10 ml/Chromium/ Copper/Manganese/ Seleni/Zn 0.5 ml/ Insulin Human Regular 20 unit/ Total Parenteral Nutrition/Amino Acids/Dextrose/ Fat Emulsion Intravenous 1,920 ml @ 80 mls/hr TPN CONT 08/24/19 22:00 08/25/19 21:59 DC 08/24/19 22:00 80 MLS/HR Potassium Chloride 75 meq/ Magnesium Sulfate 15 meq/Calcium Gluconate 8 meq/ Multivitamins 10 ml/Chromium/ Copper/Manganese/ Seleni/Zn 0.5 ml/ Insulin Human Regular 25 unit/ Total Parenteral Nutrition/Amino Acids/Dextrose/ Fat Emulsion Intravenous 1,920 ml @ 80 mls/hr TPN CONT 08/22/19 22:00 08/23/19 21:59 DC 08/22/19 23:08 80 MLS/HR Potassium Chloride 75 meq/ Magnesium Sulfate 20 meq/Calcium Gluconate 10 meq/ Multivitamins 10 ml/Chromium/ Copper/Manganese/ Seleni/Zn 0.5 ml/ Insulin Human Regular 25 unit/ Total Parenteral Nutrition/Amino Acids/Dextrose/ Fat Emulsion Intravenous 1,920 ml @ 80 mls/hr TPN CONT 08/21/19 22:00 08/22/19 21:59 DC 08/21/19 22:04 80 MLS/HR Potassium Chloride 75 meq/ Magnesium Sulfate 20 meq/Calcium Gluconate 10 meq/ Multivitamins 10 ml/Chromium/ Copper/Manganese/ Seleni/Zn 0.5 ml/ Insulin Human Regular 30 unit/ Total Parenteral Nutrition/Amino Acids/Dextrose/ Fat Emulsion Intravenous 1,920 ml @ 80 mls/hr TPN CONT 08/20/19 22:00 08/21/19 22:00 DC 08/20/19 21:51 80 MLS/HR Potassium Chloride 80 meq/ Magnesium Sulfate 20 meq/ Multivitamins 10 ml/Chromium/ Copper/Manganese/ Seleni/Zn 0.5 ml/ Insulin Human Regular 15 unit/ Total Parenteral Nutrition/Amino Acids/Dextrose/ Fat Emulsion Intravenous 1,920 ml @ 80 mls/hr TPN CONT 08/30/19 22:00 08/31/19 21:59 DC 08/30/19 21:40 80 MLS/HR Potassium Chloride 80 meq/ Magnesium Sulfate 20 meq/ Multivitamins 10 ml/Chromium/ Copper/Manganese/ Seleni/Zn 1 ml/ Insulin Human Regular 15 unit/ Total Parenteral Nutrition/Amino Acids/Dextrose/ Fat Emulsion Intravenous 1,920 ml @ 80 mls/hr TPN CONT 08/31/19 22:00 09/01/19 21:59 DC 08/31/19 22:04 80 MLS/HR Potassium Chloride 90 meq/ Magnesium Sulfate 20 meq/ Multivitamins 10 ml/Chromium/ Copper/Manganese/ Seleni/Zn 1 ml/ Insulin Human Regular 15 unit/ Total Parenteral Nutrition/Amino Acids/Dextrose/ Fat Emulsion Intravenous 1,800 ml @ 75 mls/hr TPN CONT 09/07/19 22:00 09/08/19 21:59 DC 09/07/19 22:28 75 MLS/HR Potassium Chloride/Water 100 ml @ 100 mls/hr 1X ONCE 09/01/19 11:00 09/01/19 11:59 DC 09/01/19 11:34 100 MLS/HR Potassium Phosphate 20 mmol/ Sodium Chloride 106.6667 ml @ 51.667 m... 1X ONCE 07/13/19 13:00 07/13/19 15:03 DC 07/13/19 12:51 51.667 MLS/HR Potassium Acetate 30 meq/Magnesium Sulfate 20 meq/ Calcium Gluconate 10 meq/ Multivitamins 10 ml/Chromium/ Copper/Manganese/ Seleni/Zn 0.5 ml/ Insulin Human Regular 30 unit/ Potassium Chloride 30 meq/ Total Parenteral Nutrition/Amino Acids/Dextrose/ Fat Emulsion Intravenous 1,920 ml @ 80 mls/hr TPN CONT 08/19/19 22:00 08/20/19 21:59 DC 08/19/19 22:34 80 MLS/HR Potassium Acetate 55 meq/Magnesium Sulfate 20 meq/ Calcium Gluconate 10 meq/ Multivitamins 10 ml/Chromium/ Copper/Manganese/ Seleni/Zn 0.5 ml/ Insulin Human Regular 30 unit/ Total Parenteral Nutrition/Amino Acids/Dextrose/ Fat Emulsion Intravenous 1,920 ml @ 80 mls/hr TPN CONT 08/18/19 22:00 08/19/19 21:59 DC 08/19/19 01:00 80 MLS/HR Potassium Acetate 55 meq/Magnesium Sulfate 20 meq/ Calcium Gluconate 10 meq/ Multivitamins 10 ml/Chromium/ Copper/Manganese/ Seleni/Zn 0.5 ml/ Insulin Human Regular 35 unit/ Total Parenteral Nutrition/Amino Acids/Dextrose/ Fat Emulsion Intravenous 1,920 ml @ 80 mls/hr TPN CONT 08/16/19 22:00 08/17/19 21:59 DC 08/16/19 22:02 80 MLS/HR Potassium Acetate 65 meq/Magnesium Sulfate 20 meq/ Calcium Gluconate 10 meq/ Multivitamins 10 ml/Chromium/ Copper/Manganese/ Seleni/Zn 0.5 ml/ Insulin Human Regular 30 unit/ Total Parenteral Nutrition/Amino Acids/Dextrose/ Fat Emulsion Intravenous 1,920 ml @ 80 mls/hr TPN CONT 08/17/19 22:00 08/18/19 21:59 DC 08/17/19 22:22 80 MLS/HR Prochlorperazine Edisylate (Compazine) 5 mg PACU PRN PRN 08/15/19 07:00 08/16/19 06:59 DC Propofol 20 ml @ As Directed STK-MED ONCE 08/15/19 12:26 08/15/19 12:27 DC Ringer's Solution 1,000 ml @ 30 mls/hr Q24H 08/15/19 07:00 08/15/19 18:59 DC Rocuronium [place] (Zemuron) 50 mg STK-MED ONCE 08/15/19 10:56 08/15/19 10:57 DC Saliva Substitute (Biotene Moisturizing Mouth) 2 spray PRN Q15MIN PRN 09/08/19 11:00 Sevoflurane (Ultane) 60 ml STK-MED ONCE 08/15/19 12:26 08/15/19 12:27 DC Sodium Bicarbonate 50 meq/Sodium Chloride 1,050 ml @ 75 mls/hr Q14H 07/06/19 07:30 07/11/19 10:28 DC 07/10/19 21:10 75 MLS/HR Sodium Acetate 50 meq/Potassium Acetate 55 meq/ Magnesium Sulfate 20 meq/Calcium Gluconate 10 meq/ Multivitamins 10 ml/Chromium/ Copper/Manganese/ Seleni/Zn 0.5 ml/ Insulin Human Regular 35 unit/ Total Parenteral Nutrition/Amino Acids/Dextrose/ Fat Emulsion Intravenous 1,800 ml @ 75 mls/hr TPN CONT 08/13/19 22:00 08/14/19 21:59 DC 08/13/19 22:03 75 MLS/HR Sodium Chloride 1,000 ml @ 25 mls/hr Q24H 08/15/19 14:30 UNV Sodium Chloride (Normal Saline Flush) 3 ml QSHIFT PRN 08/15/19 13:45 Sodium Chloride 90 meq/Calcium Gluconate 10 meq/ Multivitamins 10 ml/Chromium/ Copper/Manganese/ Seleni/Zn 0.5 ml/ Total Parenteral Nutrition/Amino Acids/Dextrose/ Fat Emulsion Intravenous 1,512 ml @ 63 mls/hr TPN CONT 07/06/19 22:00 07/07/19 21:59 DC 07/06/19 22:06 63 MLS/HR Sodium Chloride 90 meq/Calcium Gluconate 10 meq/ Multivitamins 10 ml/Chromium/ Copper/Manganese/ Seleni/Zn 1 ml/ Total Parenteral Nutrition/Amino Acids/Dextrose/ Fat Emulsion Intravenous 55.005 ml @ 2.292 mls/hr TPN CONT 07/06/19 22:00 07/06/19 12:33 DC Sodium Chloride 90 meq/Magnesium Sulfate 10 meq/ Calcium Gluconate 20 meq/ Multivitamins 10 ml/Chromium/ Copper/Manganese/ Seleni/Zn 0.5 ml/ Total Parenteral Nutrition/Amino Acids/Dextrose/ Fat Emulsion Intravenous 1,512 ml @ 63 mls/hr TPN CONT 07/07/19 22:00 07/08/19 21:59 DC 07/07/19 22:25 63 MLS/HR Sodium Chloride 90 meq/Magnesium Sulfate 12 meq/ Calcium Gluconate 15 meq/ Multivitamins 10 ml/Chromium/ Copper/Manganese/ Seleni/Zn 0.5 ml/ Insulin Human Regular 25 unit/ Total Parenteral Nutrition/Amino Acids/Dextrose/ Fat Emulsion Intravenous 1,400 ml @ 58.333 mls/ hr TPN CONT 07/27/19 22:00 07/28/19 21:59 DC 07/27/19 21:41 58.333 MLS/HR Sodium Chloride 90 meq/Potassium Chloride 15 meq/ Magnesium Sulfate 12 meq/Calcium Gluconate 15 meq/ Multivitamins 10 ml/Chromium/ Copper/Manganese/ Seleni/Zn 0.5 ml/ Insulin Human Regular 25 unit/ Total Parenteral Nutrition/Amino Acids/Dextrose/ Fat Emulsion Intravenous 1,400 ml @ 58.333 mls/ hr TPN CONT 07/26/19 22:00 07/27/19 21:59 DC 07/26/19 22:13 58.333 MLS/HR Sodium Chloride 90 meq/Potassium Chloride 15 meq/ Potassium Phosphate 10 mmol/ Magnesium Sulfate 8 meq/Calcium Gluconate 15 meq/ Multivitamins 10 ml/Chromium/ Copper/Manganese/ Seleni/Zn 0.5 ml/ Insulin Human Regular 25 unit/ Total Parenteral Nutrition/Amino Acids/Dextrose/ Fat Emulsion Intravenous 1,400 ml @ 58.333 mls/ hr TPN CONT 07/24/19 22:00 07/25/19 21:59 DC 07/24/19 21:20 58.333 MLS/HR Sodium Chloride 90 meq/Potassium Chloride 15 meq/ Potassium Phosphate 10 mmol/ Magnesium Sulfate 10 meq/Calcium Gluconate 20 meq/ Multivitamins 10 ml/Chromium/ Copper/Manganese/ Seleni/Zn 0.5 ml/ Total Parenteral Nutrition/Amino Acids/Dextrose/ Fat Emulsion Intravenous 1,400 ml @ 58.333 mls/ hr TPN CONT 07/11/19 22:00 07/12/19 21:59 DC 07/11/19 21:42 58.333 MLS/HR Sodium Chloride 90 meq/Potassium Chloride 15 meq/ Potassium Phosphate 10 mmol/ Magnesium Sulfate 12 meq/Calcium Gluconate 15 meq/ Multivitamins 10 ml/Chromium/ Copper/Manganese/ Seleni/Zn 0.5 ml/ Insulin Human Regular 25 unit/ Total Parenteral Nutrition/Amino Acids/Dextrose/ Fat Emulsion Intravenous 1,400 ml @ 58.333 mls/ hr TPN CONT 07/25/19 22:00 07/26/19 21:59 DC 07/25/19 22:24 58.333 MLS/HR Sodium Chloride 90 meq/Potassium Chloride 15 meq/ Potassium Phosphate 15 mmol/ Magnesium Sulfate 10 meq/Calcium Gluconate 15 meq/ Multivitamins 10 ml/Chromium/ Copper/Manganese/ Seleni/Zn 0.5 ml/ Total Parenteral Nutrition/Amino Acids/Dextrose/ Fat Emulsion Intravenous 1,400 ml @ 58.333 mls/ hr TPN CONT 07/12/19 22:00 07/13/19 21:59 DC 07/12/19 22:17 58.333 MLS/HR Sodium Chloride 90 meq/Potassium Chloride 15 meq/ Potassium Phosphate 15 mmol/ Magnesium Sulfate 10 meq/Calcium Gluconate 20 meq/ Multivitamins 10 ml/Chromium/ Copper/Manganese/ Seleni/Zn 0.5 ml/ Total Parenteral Nutrition/Amino Acids/Dextrose/ Fat Emulsion Intravenous 1,200 ml @ 50 mls/hr TPN CONT 07/10/19 22:00 07/10/19 14:17 DC Sodium Chloride 90 meq/Potassium Chloride 15 meq/ Potassium Phosphate 18 mmol/ Magnesium Sulfate 8 meq/Calcium Gluconate 15 meq/ Multivitamins 10 ml/Chromium/ Copper/Manganese/ Seleni/Zn 0.5 ml/ Insulin Human Regular 10 unit/ Total Parenteral Nutrition/Amino Acids/Dextrose/ Fat Emulsion Intravenous 1,400 ml @ 58.333 mls/ hr TPN CONT 07/15/19 22:00 07/16/19 21:59 DC 07/15/19 21:43 58.333 MLS/HR Sodium Chloride 90 meq/Potassium Chloride 15 meq/ Potassium Phosphate 18 mmol/ Magnesium Sulfate 8 meq/Calcium Gluconate 15 meq/ Multivitamins 10 ml/Chromium/ Copper/Manganese/ Seleni/Zn 0.5 ml/ Insulin Human Regular 15 unit/ Total Parenteral Nutrition/Amino Acids/Dextrose/ Fat Emulsion Intravenous 1,400 ml @ 58.333 mls/ hr TPN CONT 07/18/19 22:00 07/19/19 21:59 DC 07/18/19 21:47 58.333 MLS/HR Sodium Chloride 90 meq/Potassium Chloride 15 meq/ Potassium Phosphate 18 mmol/ Magnesium Sulfate 8 meq/Calcium Gluconate 15 meq/ Multivitamins 10 ml/Chromium/ Copper/Manganese/ Seleni/Zn 0.5 ml/ Insulin Human Regular 20 unit/ Total Parenteral Nutrition/Amino Acids/Dextrose/ Fat Emulsion Intravenous 1,400 ml @ 58.333 mls/ hr TPN CONT 07/21/19 22:00 07/22/19 21:59 DC 07/21/19 22:45 58.333 MLS/HR Sodium Chloride 90 meq/Potassium Chloride 15 meq/ Potassium Phosphate 18 mmol/ Magnesium Sulfate 8 meq/Calcium Gluconate 15 meq/ Multivitamins 10 ml/Chromium/ Copper/Manganese/ Seleni/Zn 0.5 ml/ Total Parenteral Nutrition/Amino Acids/Dextrose/ Fat Emulsion Intravenous 1,400 ml @ 58.333 mls/ hr TPN CONT 07/14/19 22:00 07/15/19 21:59 DC 07/14/19 22:00 58.333 MLS/HR Sodium Chloride 90 meq/Potassium Phosphate 15 mmol/ Magnesium Sulfate 12 meq/Calcium Gluconate 15 meq/ Multivitamins 10 ml/Chromium/ Copper/Manganese/ Seleni/Zn 0.5 ml/ Insulin Human Regular 30 unit/ Total Parenteral Nutrition/Amino Acids/Dextrose/ Fat Emulsion Intravenous 1,400 ml @ 58.333 mls/ hr TPN CONT 07/29/19 22:00 07/30/19 21:59 DC 07/29/19 21:49 58.333 MLS/HR Sodium Chloride 90 meq/Potassium Phosphate 15 mmol/ Magnesium Sulfate 12 meq/Calcium Gluconate 15 meq/ Multivitamins 10 ml/Chromium/ Copper/Manganese/ Seleni/Zn 0.5 ml/ Insulin Human Regular 40 unit/ Total Parenteral Nutrition/Amino Acids/Dextrose/ Fat Emulsion Intravenous 1,400 ml @ 58.333 mls/ hr TPN CONT 07/30/19 22:00 07/31/19 21:59 DC 07/30/19 21:21 58.333 MLS/HR Sodium Chloride 90 meq/Potassium Phosphate 19 mmol/ Magnesium Sulfate 12 meq/Calcium Gluconate 15 meq/ Multivitamins 10 ml/Chromium/ Copper/Manganese/ Seleni/Zn 0.5 ml/ Insulin Human Regular 40 unit/ Total Parenteral Nutrition/Amino Acids/Dextrose/ Fat Emulsion Intravenous 1,400 ml @ 58.333 mls/ hr TPN CONT 07/31/19 22:00 08/01/19 21:59 DC 07/31/19 21:54 58.333 MLS/HR Sodium Chloride 90 meq/Potassium Phosphate 5 mmol/ Magnesium Sulfate 12 meq/Calcium Gluconate 15 meq/ Multivitamins 10 ml/Chromium/ Copper/Manganese/ Seleni/Zn 0.5 ml/ Insulin Human Regular 30 unit/ Total Parenteral Nutrition/Amino Acids/Dextrose/ Fat Emulsion Intravenous 1,400 ml @ 58.333 mls/ hr TPN CONT 07/28/19 22:00 07/29/19 21:59 DC 07/28/19 22:08 58.333 MLS/HR Sodium Chloride 100 meq/Potassium Chloride 40 meq/ Magnesium Sulfate 15 meq/Calcium Gluconate 15 meq/ Multivitamins 10 ml/Chromium/ Copper/Manganese/ Seleni/Zn 0.5 ml/ Insulin Human Regular 35 unit/ Total Parenteral Nutrition/Amino Acids/Dextrose/ Fat Emulsion Intravenous 1,400 ml @ 58.333 mls/ hr TPN CONT 08/07/19 22:00 08/08/19 21:59 DC 08/07/19 22:46 58.333 MLS/HR Sodium Chloride 100 meq/Potassium Chloride 40 meq/ Magnesium Sulfate 20 meq/Calcium Gluconate 10 meq/ Multivitamins 10 ml/Chromium/ Copper/Manganese/ Seleni/Zn 0.5 ml/ Insulin Human Regular 35 unit/ Total Parenteral Nutrition/Amino Acids/Dextrose/ Fat Emulsion Intravenous 1,400 ml @ 58.333 mls/ hr TPN CONT 08/11/19 22:00 08/12/19 21:59 DC 08/12/19 00:06 58.333 MLS/HR Sodium Chloride 100 meq/Potassium Chloride 40 meq/ Magnesium Sulfate 20 meq/Calcium Gluconate 15 meq/ Multivitamins 10 ml/Chromium/ Copper/Manganese/ Seleni/Zn 0.5 ml/ Insulin Human Regular 35 unit/ Total Parenteral Nutrition/Amino Acids/Dextrose/ Fat Emulsion Intravenous 1,400 ml @ 58.333 mls/ hr TPN CONT 08/10/19 22:00 08/11/19 21:59 DC 08/10/19 22:27 58.333 MLS/HR Sodium Chloride 100 meq/Potassium Phosphate 10 mmol/ Magnesium Sulfate 12 meq/Calcium Gluconate 15 meq/ Multivitamins 10 ml/Chromium/ Copper/Manganese/ Seleni/Zn 0.5 ml/ Insulin Human Regular 35 unit/ Potassium Chloride 20 meq/ Total Parenteral Nutrition/Amino Acids/Dextrose/ Fat Emulsion Intravenous 1,400 ml @ 58.333 mls/ hr TPN CONT 08/04/19 22:00 08/05/19 21:59 DC 08/04/19 22:10 58.333 MLS/HR Sodium Chloride 100 meq/Potassium Phosphate 19 mmol/ Magnesium Sulfate 12 meq/Calcium Gluconate 15 meq/ Multivitamins 10 ml/Chromium/ Copper/Manganese/ Seleni/Zn 0.5 ml/ Insulin Human Regular 40 unit/ Potassium Chloride 20 meq/ Total Parenteral Nutrition/Amino Acids/Dextrose/ Fat Emulsion Intravenous 1,400 ml @ 58.333 mls/ hr TPN CONT 08/03/19 22:00 08/04/19 21:59 DC 08/03/19 21:20 58.333 MLS/HR Sodium Chloride 100 meq/Potassium Phosphate 5 mmol/ Magnesium Sulfate 12 meq/Calcium Gluconate 15 meq/ Multivitamins 10 ml/Chromium/ Copper/Manganese/ Seleni/Zn 0.5 ml/ Insulin Human Regular 35 unit/ Potassium Chloride 20 meq/ Total Parenteral Nutrition/Amino Acids/Dextrose/ Fat Emulsion Intravenous 1,400 ml @ 58.333 mls/ hr TPN CONT 08/05/19 22:00 08/06/19 21:59 DC 08/05/19 22:59 58.333 MLS/HR Succinylcholine Chloride (Anectine) 120 mg 1X ONCE 07/11/19 08:30 07/11/19 08:31 DC 07/11/19 08:34 120 MG Vecuronium [place] (Norcuron Bolus) 6 mg PRN Q6HRS PRN 08/25/19 19:15 08/25/19 19:35 DC Labs: Lab Laboratory Tests Test 09/15/19 12:40 09/15/19 17:50 09/15/19 23:45 09/16/19 05:50 Glucose (Fingerstick) 237 mg/dL (70-99) 171 mg/dL (70-99) 168 mg/dL (70-99) White Blood Count 16.0 x10^3/uL (4.0-11.0) Red Blood Count 2.83 x10^6/uL (3.50-5.40) Hemoglobin 8.0 g/dL (12.0-15.5) Hematocrit 24.5 % (36.0-47.0) Mean Corpuscular Volume 86 fL (79-100) Mean Corpuscular Hemoglobin 28 pg (25-35) Mean Corpuscular Hemoglobin Concent 33 g/dL (31-37) Red Cell Distribution Width 19.2 % (11.5-14.5) Platelet Count 440 x10^3/uL (140-400) Neutrophils (%) (Auto) 77 % (31-73) Lymphocytes (%) (Auto) 15 % (24-48) Monocytes (%) (Auto) 7 % (0-9) Eosinophils (%) (Auto) 1 % (0-3) Basophils (%) (Auto) 0 % (0-3) Neutrophils # (Auto) 12.3 x10^3/uL (1.8-7.7) Lymphocytes # (Auto) 2.4 x10^3/uL (1.0-4.8) Monocytes # (Auto) 1.1 x10^3/uL (0.0-1.1) Eosinophils # (Auto) 0.1 x10^3/uL (0.0-0.7) Basophils # (Auto) 0.0 x10^3/uL (0.0-0.2) Sodium Level 138 mmol/L (136-145) Potassium Level 3.8 mmol/L (3.5-5.1) Chloride Level 99 mmol/L (98-107) Carbon Dioxide Level 31 mmol/L (21-32) Anion Gap 8 (6-14) Blood Urea Nitrogen 36 mg/dL (7-20) Creatinine 0.9 mg/dL (0.6-1.0) Estimated GFR (Cockcroft-Gault) 66.5 BUN/Creatinine Ratio 40 (6-20) Glucose Level 146 mg/dL (70-99) Calcium Level 10.0 mg/dL (8.5-10.1) Total Bilirubin 0.7 mg/dL (0.2-1.0) Aspartate Amino Transf (AST/SGOT) 19 U/L (15-37) Alanine Aminotransferase (ALT/SGPT) 20 U/L (14-59) Alkaline Phosphatase 111 U/L (46-116) Total Protein 7.3 g/dL (6.4-8.2) Albumin 2.1 g/dL (3.4-5.0) Albumin/Globulin Ratio 0.4 (1.0-1.7) Test 09/16/19 06:18 Glucose (Fingerstick) 143 mg/dL (70-99) Objective: Assessment: Fever intermittent could be from underlying pancreatitis vs aspiration pneumonia Acute pancreatitis with persistent necrosis CT a/p 07/27 Increased ascites. 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 Leucocytosis JUANA,Hyperkalemia, Metabolic acidosis off dialysis Acute hypoxic resp failure ,bilateral pleural effusion and atelectasis hypocalcemia Prediabetes HTN s/p trach Plan: Plan of Care Leukocytosis again but patient is clinically stable Trend WBC DC PICC line continue Zosyn September 13,was on Merrem DC micafungin/ dapto/zyvox Aggressive pulmonary toilet Maintain aspiration precaution Supportive care PT and OT as tolerated Critically ill Discussed with nursing staff YUNIOR JONES MD September 16, 2019 10:10
[2019-09-16] MEDS: fentaNYL PF VIAL 100 MCG/2 ML VIAL IVP PRN ×3 (12:17→20:58)
--- NOTE | 2019-09-16 12:26 | PDOC ---
PULMONARY PROGRESS NOTES Subjective Patient intubated on 07/10 , s/p trach 4/6, Remains on TS Denies SOB or increased cough, Vitals Vital Signs Date Time Temp Pulse Resp B/P (MAP) Pulse Ox O2 Delivery O2 Flow Rate FiO2 09/16/19 12:17 25 96 Room Air 09/16/19 06:00 115 115/65 (82) 09/16/19 04:00 99.3 99.3 09/15/19 21:34 8.0 ROS: No Chest Pain, No Abdominal Pain, No Increase Cough General: Alert, No acute distress HEENT: Other (trach midline ) Lungs: Other (Good air movement but having a lot of productive sputum from her tracheostomy site) Cardiovascular: S1, S2 Abdomen: Soft, Non-tender Neuro Exam: Alert Extremities: Other (+3 generalized edema ) Skin: Warm, Dry Labs Laboratory Tests Test 09/14/19 12:28 09/14/19 18:06 09/15/19 00:20 09/15/19 05:27 Glucose (Fingerstick) 177 mg/dL (70-99) 149 mg/dL (70-99) 170 mg/dL (70-99) 142 mg/dL (70-99) Test 09/15/19 05:30 09/15/19 12:40 09/15/19 17:50 09/15/19 23:45 Sodium Level 137 mmol/L (136-145) Potassium Level 4.0 mmol/L (3.5-5.1) Chloride Level 98 mmol/L (98-107) Carbon Dioxide Level 30 mmol/L (21-32) Anion Gap 9 (6-14) Blood Urea Nitrogen 31 mg/dL (7-20) Creatinine 0.9 mg/dL (0.6-1.0) Estimated GFR (Cockcroft-Gault) 66.5 Glucose Level 155 mg/dL (70-99) Calcium Level 10.1 mg/dL (8.5-10.1) Triglycerides Level 206 mg/dL (0-150) Glucose (Fingerstick) 237 mg/dL (70-99) 171 mg/dL (70-99) 168 mg/dL (70-99) Test 09/16/19 05:50 09/16/19 06:18 White Blood Count 16.0 x10^3/uL (4.0-11.0) Red Blood Count 2.83 x10^6/uL (3.50-5.40) Hemoglobin 8.0 g/dL (12.0-15.5) Hematocrit 24.5 % (36.0-47.0) Mean Corpuscular Volume 86 fL (79-100) Mean Corpuscular Hemoglobin 28 pg (25-35) Mean Corpuscular Hemoglobin Concent 33 g/dL (31-37) Red Cell Distribution Width 19.2 % (11.5-14.5) Platelet Count 440 x10^3/uL (140-400) Neutrophils (%) (Auto) 77 % (31-73) Lymphocytes (%) (Auto) 15 % (24-48) Monocytes (%) (Auto) 7 % (0-9) Eosinophils (%) (Auto) 1 % (0-3) Basophils (%) (Auto) 0 % (0-3) Neutrophils # (Auto) 12.3 x10^3/uL (1.8-7.7) Lymphocytes # (Auto) 2.4 x10^3/uL (1.0-4.8) Monocytes # (Auto) 1.1 x10^3/uL (0.0-1.1) Eosinophils # (Auto) 0.1 x10^3/uL (0.0-0.7) Basophils # (Auto) 0.0 x10^3/uL (0.0-0.2) Sodium Level 138 mmol/L (136-145) Potassium Level 3.8 mmol/L (3.5-5.1) Chloride Level 99 mmol/L (98-107) Carbon Dioxide Level 31 mmol/L (21-32) Anion Gap 8 (6-14) Blood Urea Nitrogen 36 mg/dL (7-20) Creatinine 0.9 mg/dL (0.6-1.0) Estimated GFR (Cockcroft-Gault) 66.5 BUN/Creatinine Ratio 40 (6-20) Glucose Level 146 mg/dL (70-99) Calcium Level 10.0 mg/dL (8.5-10.1) Magnesium Level 2.2 mg/dL (1.8-2.4) Total Bilirubin 0.7 mg/dL (0.2-1.0) Aspartate Amino Transf (AST/SGOT) 19 U/L (15-37) Alanine Aminotransferase (ALT/SGPT) 20 U/L (14-59) Alkaline Phosphatase 111 U/L (46-116) Total Protein 7.3 g/dL (6.4-8.2) Albumin 2.1 g/dL (3.4-5.0) Albumin/Globulin Ratio 0.4 (1.0-1.7) Glucose (Fingerstick) 143 mg/dL (70-99) Laboratory Tests Test 09/15/19 12:40 09/15/19 17:50 09/15/19 23:45 09/16/19 05:50 Glucose (Fingerstick) 237 mg/dL (70-99) 171 mg/dL (70-99) 168 mg/dL (70-99) White Blood Count 16.0 x10^3/uL (4.0-11.0) Red Blood Count 2.83 x10^6/uL (3.50-5.40) Hemoglobin 8.0 g/dL (12.0-15.5) Hematocrit 24.5 % (36.0-47.0) Mean Corpuscular Volume 86 fL (79-100) Mean Corpuscular Hemoglobin 28 pg (25-35) Mean Corpuscular Hemoglobin Concent 33 g/dL (31-37) Red Cell Distribution Width 19.2 % (11.5-14.5) Platelet Count 440 x10^3/uL (140-400) Neutrophils (%) (Auto) 77 % (31-73) Lymphocytes (%) (Auto) 15 % (24-48) Monocytes (%) (Auto) 7 % (0-9) Eosinophils (%) (Auto) 1 % (0-3) Basophils (%) (Auto) 0 % (0-3) Neutrophils # (Auto) 12.3 x10^3/uL (1.8-7.7) Lymphocytes # (Auto) 2.4 x10^3/uL (1.0-4.8) Monocytes # (Auto) 1.1 x10^3/uL (0.0-1.1) Eosinophils # (Auto) 0.1 x10^3/uL (0.0-0.7) Basophils # (Auto) 0.0 x10^3/uL (0.0-0.2) Sodium Level 138 mmol/L (136-145) Potassium Level 3.8 mmol/L (3.5-5.1) Chloride Level 99 mmol/L (98-107) Carbon Dioxide Level 31 mmol/L (21-32) Anion Gap 8 (6-14) Blood Urea Nitrogen 36 mg/dL (7-20) Creatinine 0.9 mg/dL (0.6-1.0) Estimated GFR (Cockcroft-Gault) 66.5 BUN/Creatinine Ratio 40 (6-20) Glucose Level 146 mg/dL (70-99) Calcium Level 10.0 mg/dL (8.5-10.1) Magnesium Level 2.2 mg/dL (1.8-2.4) Total Bilirubin 0.7 mg/dL (0.2-1.0) Aspartate Amino Transf (AST/SGOT) 19 U/L (15-37) Alanine Aminotransferase (ALT/SGPT) 20 U/L (14-59) Alkaline Phosphatase 111 U/L (46-116) Total Protein 7.3 g/dL (6.4-8.2) Albumin 2.1 g/dL (3.4-5.0) Albumin/Globulin Ratio 0.4 (1.0-1.7) Test 09/16/19 06:18 Glucose (Fingerstick) 143 mg/dL (70-99) Medications Active Scripts Medications Dose Route/Sig Max Daily Dose Days Date Category Bisoprolol Fumarate 5 Mg Tablet 10 Mg PO DAILY 07/04/19 Reported Impression . IMPRESSION: 1. Acute hypoxemic respiratory failure secondary to ARDS status post trach, 2. Gallstone pancreatitis 3. Severe metabolic acidosis.stable 4. Acute kidney injury-stable, Off HD-- continue to improve 5. Acute gallstone pancreatitis. 6. Hypoalbuminemia. 7. Moderate persistent effusions, s/p left thora 08/29 8. Fever- Per ID, per surgery--resolved 9. Chronic anemia 10. Covid 19 testing negative 11. Moderate to large ascites-S/P paracentisis 12.S/P paracentisis with 4 liters removed on 08/03/19 13. S/P IR drain placement on 08/26/2019 Plan . 1.Continue supplemental oxygen via trach shield-- PMV/capping as tolerated 2. s/p thoracentesis, 08/29, 3 litres removed 3. Follow surgery recs-- S/P 3 drain placed in IR on 08/26/2019 4. Follow ID recs for ABX 5. Follow nephrology recs 6. Continue TPN DVT/GI PPX: heparin SQ/ protonix D/W RN and RT, CODE:VINAYAK FOX MD September 16, 2019 12:26
--- NOTE | 2019-09-16 12:42 | PDOC ---
Subjective: Subjective: Gives me a thumbs up. Objective: Objective: Nurse present - has been up walking, went outside again today, NG clamped - no nausea/vomiting issues today - wonders if mostly this is related to coughing. Was able to take a couple sips of thickened juice - got it down but it tasted gross. Vital Signs: Vital Signs Date Time Temp Pulse Resp B/P (MAP) Pulse Ox O2 Delivery O2 Flow Rate FiO2 09/16/19 12:17 25 96 Room Air 09/16/19 06:00 115 115/65 (82) 09/16/19 04:00 99.3 99.3 09/15/19 21:34 8.0 Labs: Laboratory Tests Test 09/15/19 12:40 09/15/19 17:50 09/15/19 23:45 09/16/19 06:18 Glucose (Fingerstick) 237 mg/dL (70-99) 171 mg/dL (70-99) 168 mg/dL (70-99) 143 mg/dL (70-99) Test 09/16/19 12:26 Glucose (Fingerstick) 189 mg/dL (70-99) PE: GEN: NAD, up to chair LUNGS: trach/room air HEART: tachycardic ABD: soft NEURO/PSYCH: A & O 3 A/P: Gallstone pancreatitis, MOSF -- Slowly improving. Hemodynamically unstable?: No Is patient in severe pain?: No Is NPO status required?: No STACIE-CYNDEE TRINIDAD September 16, 2019 12:42
[2019-09-16] MEDS: IV NORMAL SALINE 1000ML BAG 1,000 ML IV SCH (13:07)
--- NOTE | 2019-09-16 13:53 | PDOC ---
SURGICAL PROGRESS NOTE Subjective Pt doing well, up in chair, feels better Vital Signs Vital Signs Date Time Temp Pulse Resp B/P (MAP) Pulse Ox O2 Delivery O2 Flow Rate FiO2 09/16/19 13:06 16 97 Room Air 09/16/19 06:00 115 115/65 (82) 09/16/19 04:00 99.3 99.3 09/15/19 21:34 8.0 I&O Intake and Output 09/16/19 07:00 Intake Total 959 ml Output Total 1861 ml Balance -902 ml Intake Oral 0 ml IV Total 959 ml Output Urine Total 1816 ml Drainage Total 45 ml General: Alert, Cooperative, No acute distress Abdomen: Soft, No tenderness Labs Laboratory Tests Test 09/14/19 18:06 09/15/19 00:20 09/15/19 05:27 09/15/19 05:30 Glucose (Fingerstick) 149 mg/dL (70-99) 170 mg/dL (70-99) 142 mg/dL (70-99) Sodium Level 137 mmol/L (136-145) Potassium Level 4.0 mmol/L (3.5-5.1) Chloride Level 98 mmol/L (98-107) Carbon Dioxide Level 30 mmol/L (21-32) Anion Gap 9 (6-14) Blood Urea Nitrogen 31 mg/dL (7-20) Creatinine 0.9 mg/dL (0.6-1.0) Estimated GFR (Cockcroft-Gault) 66.5 Glucose Level 155 mg/dL (70-99) Calcium Level 10.1 mg/dL (8.5-10.1) Triglycerides Level 206 mg/dL (0-150) Test 09/15/19 12:40 09/15/19 17:50 09/15/19 23:45 09/16/19 05:50 Glucose (Fingerstick) 237 mg/dL (70-99) 171 mg/dL (70-99) 168 mg/dL (70-99) White Blood Count 16.0 x10^3/uL (4.0-11.0) Red Blood Count 2.83 x10^6/uL (3.50-5.40) Hemoglobin 8.0 g/dL (12.0-15.5) Hematocrit 24.5 % (36.0-47.0) Mean Corpuscular Volume 86 fL (79-100) Mean Corpuscular Hemoglobin 28 pg (25-35) Mean Corpuscular Hemoglobin Concent 33 g/dL (31-37) Red Cell Distribution Width 19.2 % (11.5-14.5) Platelet Count 440 x10^3/uL (140-400) Neutrophils (%) (Auto) 77 % (31-73) Lymphocytes (%) (Auto) 15 % (24-48) Monocytes (%) (Auto) 7 % (0-9) Eosinophils (%) (Auto) 1 % (0-3) Basophils (%) (Auto) 0 % (0-3) Neutrophils # (Auto) 12.3 x10^3/uL (1.8-7.7) Lymphocytes # (Auto) 2.4 x10^3/uL (1.0-4.8) Monocytes # (Auto) 1.1 x10^3/uL (0.0-1.1) Eosinophils # (Auto) 0.1 x10^3/uL (0.0-0.7) Basophils # (Auto) 0.0 x10^3/uL (0.0-0.2) Sodium Level 138 mmol/L (136-145) Potassium Level 3.8 mmol/L (3.5-5.1) Chloride Level 99 mmol/L (98-107) Carbon Dioxide Level 31 mmol/L (21-32) Anion Gap 8 (6-14) Blood Urea Nitrogen 36 mg/dL (7-20) Creatinine 0.9 mg/dL (0.6-1.0) Estimated GFR (Cockcroft-Gault) 66.5 BUN/Creatinine Ratio 40 (6-20) Glucose Level 146 mg/dL (70-99) Calcium Level 10.0 mg/dL (8.5-10.1) Magnesium Level 2.2 mg/dL (1.8-2.4) Total Bilirubin 0.7 mg/dL (0.2-1.0) Aspartate Amino Transf (AST/SGOT) 19 U/L (15-37) Alanine Aminotransferase (ALT/SGPT) 20 U/L (14-59) Alkaline Phosphatase 111 U/L (46-116) Total Protein 7.3 g/dL (6.4-8.2) Albumin 2.1 g/dL (3.4-5.0) Albumin/Globulin Ratio 0.4 (1.0-1.7) Test 09/16/19 06:18 09/16/19 12:26 Glucose (Fingerstick) 143 mg/dL (70-99) 189 mg/dL (70-99) Laboratory Tests Test 09/15/19 17:50 09/15/19 23:45 09/16/19 05:50 09/16/19 06:18 Glucose (Fingerstick) 171 mg/dL (70-99) 168 mg/dL (70-99) 143 mg/dL (70-99) White Blood Count 16.0 x10^3/uL (4.0-11.0) Red Blood Count 2.83 x10^6/uL (3.50-5.40) Hemoglobin 8.0 g/dL (12.0-15.5) Hematocrit 24.5 % (36.0-47.0) Mean Corpuscular Volume 86 fL (79-100) Mean Corpuscular Hemoglobin 28 pg (25-35) Mean Corpuscular Hemoglobin Concent 33 g/dL (31-37) Red Cell Distribution Width 19.2 % (11.5-14.5) Platelet Count 440 x10^3/uL (140-400) Neutrophils (%) (Auto) 77 % (31-73) Lymphocytes (%) (Auto) 15 % (24-48) Monocytes (%) (Auto) 7 % (0-9) Eosinophils (%) (Auto) 1 % (0-3) Basophils (%) (Auto) 0 % (0-3) Neutrophils # (Auto) 12.3 x10^3/uL (1.8-7.7) Lymphocytes # (Auto) 2.4 x10^3/uL (1.0-4.8) Monocytes # (Auto) 1.1 x10^3/uL (0.0-1.1) Eosinophils # (Auto) 0.1 x10^3/uL (0.0-0.7) Basophils # (Auto) 0.0 x10^3/uL (0.0-0.2) Sodium Level 138 mmol/L (136-145) Potassium Level 3.8 mmol/L (3.5-5.1) Chloride Level 99 mmol/L (98-107) Carbon Dioxide Level 31 mmol/L (21-32) Anion Gap 8 (6-14) Blood Urea Nitrogen 36 mg/dL (7-20) Creatinine 0.9 mg/dL (0.6-1.0) Estimated GFR (Cockcroft-Gault) 66.5 BUN/Creatinine Ratio 40 (6-20) Glucose Level 146 mg/dL (70-99) Calcium Level 10.0 mg/dL (8.5-10.1) Magnesium Level 2.2 mg/dL (1.8-2.4) Total Bilirubin 0.7 mg/dL (0.2-1.0) Aspartate Amino Transf (AST/SGOT) 19 U/L (15-37) Alanine Aminotransferase (ALT/SGPT) 20 U/L (14-59) Alkaline Phosphatase 111 U/L (46-116) Total Protein 7.3 g/dL (6.4-8.2) Albumin 2.1 g/dL (3.4-5.0) Albumin/Globulin Ratio 0.4 (1.0-1.7) Test 09/16/19 12:26 Glucose (Fingerstick) 189 mg/dL (70-99) Problem List Problems Medical Problems: (1) Acute pancreatitis Status: Acute (2) Cholelithiasis Status: Acute Assessment/Plan s/p lap exploration cont supportive care doing well d/c planning ongoing. DAVON SIMMS MD September 16, 2019 13:53
--- NOTE | 2019-09-16 16:33 | NUR ---
SS following up with discharge planning. SS reviewed pt chart and discussed with RN, Machelle. Pt remains on room air. Pt on IV Zosyn and TPN and has KAYLIN drains x3. Pt's daughter has not returned SS calls at this time. Pt is improving with PT/OT. SS will continue to follow for discharge planning.
[2019-09-16] MEDS: ENOXAPARIN 40 MG/0.4 ML SYRINGE. SQ SCH (16:47)
[2019-09-16] MEDS: DEXMEDETOMIDINE 400 MCG in IV NORMAL SALINE 100ML 96 ML IV PRN ×3 (17:26)
--- NOTE | 2019-09-16 19:34 | NUR ---
Waiting for [facility] to place PICC line in patient. Consent given by patient-- who is A/O X4, 2 RN verification. Faxed to Adilia LE Director Of In Service Education. Patient bathed, taken outside today. Anxiety minimal. No fevers. Report given to Jyothi LE.
[2019-09-16] MEDS ORDERED: TOTAL PARENTERAL NUTRITION IV SCH ×8 (22:00)
[2019-09-16] MEDS ORDERED: [UNRECOGNIZED DRUG - OTHER] IV SCH ×8 (22:00)
[2019-09-16] MEDS ORDERED: AMINO ACID IV SCH ×8 (22:00)
[2019-09-16] MEDS ORDERED: DEXTROSE 70% IV SCH ×8 (22:00)
[2019-09-17] VITALS (18 sets, daily range): BP systolic 90–144; BP diastolic 53–97
[2019-09-17] MEDS: PIPERACILLIN/TAZOBACTAM 3.375 GM in IV NORMAL SALINE 50ML 50 ML IV SCH ×5 (00:30→23:59)
[2019-09-17] MEDS: DEXMEDETOMIDINE 400 MCG in IV NORMAL SALINE 100ML 96 ML IV PRN ×2 (00:31→12:57)
[2019-09-17] MEDS: ONDANSETRON PF 4 MG/2 ML VIAL. IV PRN ×2 (00:34→09:18)
[2019-09-17] MEDS: INSULIN LISPRO 300 UNITS/3 ML VIAL. SQ SCH ×4 (00:36→16:35)
[2019-09-17] MEDS: PROCHLORPERAZINE 10 MG/2 ML VIAL. IV PRN (01:26)
[2019-09-17] MEDS: fentaNYL PF VIAL 100 MCG/2 ML VIAL IVP PRN ×4 (04:32→23:59)
--- NOTE | 2019-09-17 04:38 | RAD ---
EXAM: CHEST ONE VIEW. HISTORY: Line placement. COMPARISON: 09/06/2019. FINDINGS: A frontal view of the chest is obtained. A tracheostomy appliance is in expected position. A nasogastric tube has its tip in the stomach. Bilateral PICC lines have their tips in the superior cavoatrial junction. The inspiration is small. There are small bilateral pleural effusions with bibasilar atelectasis and mild pulmonary edema. There is no pneumothorax. The heart is not enlarged. IMPRESSION: 1. Small bilateral pleural effusions are mildly improved. Electronically signed by: Enzo Perera MD (09/17/2019 4:35 AM) [facility]
[2019-09-17 06:45] LABS: ALBUMIN/GLOBULIN RATIO 0.4 (1.0-1.7); CREATININE 1.1 mg/dL (0.6-1.0); GFR 52.8; POTASSIUM 3.5 mmol/L (3.5-5.1); TOTAL BILIRUBIN 0.7 mg/dL (0.2-1.0); TOTAL PROTEIN 6.7 g/dL (6.4-8.2)
[2019-09-17 07:35] LABS: BASO % 0 % (0-3); EOS # 0.1 x10^3/uL (0.0-0.7); EOS % 1 % (0-3); HEMATOCRIT 23.3 % (36.0-47.0); HEMOGLOBIN 7.6 g/dL (12.0-15.5); LYMPH # 2.3 x10^3/uL (1.0-4.8); LYMPH % 16 % (24-48); MEAN CORPUSCULAR HEMOGLOBIN 28 pg (25-35); MEAN CORPUSCULAR HGB CONC 32 g/dL (31-37); MEAN CORPUSCULAR VOLUME 87 fL (79-100); MONO # 1.2 x10^3/uL (0.0-1.1); MONO % 9 % (0-9); NEUT # 10.6 x10^3/uL (1.8-7.7); NEUT % 74 % (31-73); PLATELET COUNT 437 x10^3/uL (140-400); RED BLOOD COUNT 2.69 x10^6/uL (3.50-5.40); RED CELL DISTRIBUTION WIDTH 19.2 % (11.5-14.5); WHITE BLOOD COUNT 14.2 x10^3/uL (4.0-11.0)
[2019-09-17] MEDS: PANTOPRAZOLE IV PUSH 40 MG VIAL. IVP SCH (08:57)
[2019-09-17] MEDS: FUROSEMIDE 40 MG/4 ML VIAL. IVP SCH ×2 (08:57→15:44)
[2019-09-17] MEDS: TPN PER PHARMACY MC PRN (09:54)
--- NOTE | 2019-09-17 09:55 | PDOC ---
Infectious Disease Note Subjective Subjective s/p new LUE-PICC Trach, on room air + nausea Minimal drain output No fevers las t 48 hrs ROS ROS as mentioned above Vital Sign Vital Signs Vital Signs Date Time Temp Pulse Resp B/P (MAP) Pulse Ox O2 Delivery O2 Flow Rate FiO2 09/17/19 09:02 32 93 Room Air 09/17/19 06:00 99 123/69 (87) 09/17/19 04:00 99.0 99.0 Physical Exam PHYSICAL EXAM GENERAL: Propped up in bed, alert, slightly anxious HEENT: Oral cavity clear, NGT NECK: Trach present LUNGS: nonlabored HEART: S1, S2, regular ABDOMEN: mod distention, hypoactive BS, mildly tender, + drains : Lind (08/01) EXTREMITIES: Generalized edema, improving, no cyanosis SKIN: Warm and dry. No generalized rash. [employer]: Very weak RUE-PICC (08/17) clean new LUE-PICC clean Labs Lab Laboratory Tests Test 09/16/19 12:26 09/16/19 16:58 09/17/19 00:29 09/17/19 06:00 Glucose (Fingerstick) 189 mg/dL (70-99) 186 mg/dL (70-99) 167 mg/dL (70-99) White Blood Count 14.2 x10^3/uL (4.0-11.0) Red Blood Count 2.69 x10^6/uL (3.50-5.40) Hemoglobin 7.6 g/dL (12.0-15.5) Hematocrit 23.3 % (36.0-47.0) Mean Corpuscular Volume 87 fL (79-100) Mean Corpuscular Hemoglobin 28 pg (25-35) Mean Corpuscular Hemoglobin Concent 32 g/dL (31-37) Red Cell Distribution Width 19.2 % (11.5-14.5) Platelet Count 437 x10^3/uL (140-400) Neutrophils (%) (Auto) 74 % (31-73) Lymphocytes (%) (Auto) 16 % (24-48) Monocytes (%) (Auto) 9 % (0-9) Eosinophils (%) (Auto) 1 % (0-3) Basophils (%) (Auto) 0 % (0-3) Neutrophils # (Auto) 10.6 x10^3/uL (1.8-7.7) Lymphocytes # (Auto) 2.3 x10^3/uL (1.0-4.8) Monocytes # (Auto) 1.2 x10^3/uL (0.0-1.1) Eosinophils # (Auto) 0.1 x10^3/uL (0.0-0.7) Basophils # (Auto) 0.0 x10^3/uL (0.0-0.2) Sodium Level 140 mmol/L (136-145) Potassium Level 3.5 mmol/L (3.5-5.1) Chloride Level 102 mmol/L (98-107) Carbon Dioxide Level 31 mmol/L (21-32) Anion Gap 7 (6-14) Blood Urea Nitrogen 36 mg/dL (7-20) Creatinine 1.1 mg/dL (0.6-1.0) Estimated GFR (Cockcroft-Gault) 52.8 BUN/Creatinine Ratio 33 (6-20) Glucose Level 143 mg/dL (70-99) Calcium Level 10.0 mg/dL (8.5-10.1) Total Bilirubin 0.7 mg/dL (0.2-1.0) Aspartate Amino Transf (AST/SGOT) 15 U/L (15-37) Alanine Aminotransferase (ALT/SGPT) 14 U/L (14-59) Alkaline Phosphatase 109 U/L (46-116) Total Protein 6.7 g/dL (6.4-8.2) Albumin 2.0 g/dL (3.4-5.0) Albumin/Globulin Ratio 0.4 (1.0-1.7) Test 09/17/19 06:13 Glucose (Fingerstick) 130 mg/dL (70-99) IMPRESSION: 1. Small bilateral pleural effusions are mildly improved. Micro 08/21. BLOOD CULTURE Preliminary NO GROWTH AFTER 5 DAYS 08/14. abd fluid AEROBIC RES 1 Final Organism Identification, Yeast Kiana parapsilosis 08/23. abd fluid ANAEROBIC-AEROBIC CULTURE PENDING Objective Assessment Fever intermittent could be from underlying pancreatitis vs aspiration, better ? Ileus with vomiting Abd distention - U/S and CT reviewed s/p 0.4 L of opaque, debris-containing ascites was removed 08/23 Acute pancreatitis with persistent necrosis - 08/14 status post KAYLIN drain placement + C paropsilosis; 08/23 + yeast & high amylase; s/p additional drains on 08/25 Anemia - S/p PRBCs Cholelithiasis with thickening of the gallbladder wall. Leucocytosis improved JUANA, hyperkalemia, Metabolic acidosis off dialysis Acute hypoxic resp failure ,bilateral pleural effusion and atelectasis hypocalcemia Prediabetes HTN s/p trach Plan Plan of Care Leukocytosis again but patient is clinically stable Trend WBC DC RUE PICC line continue Zosyn September 13 Aggressive pulmonary toilet Maintain aspiration precaution Supportive care PT and OT as tolerated Critically ill Discussed with nursing staff Attending Co-Sign The patient was seen and interviewed as well as examined at the bedside. The chart was reviewed. The case was discussed. Agree with the plan of care. FRANCA HOBSON APRN September 17, 2019 09:55 KIMMY JONES MD September 17, 2019 12:40
--- NOTE | 2019-09-17 09:55 | NUR ---
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, 8 inches Weight: 75.7 kg Current diet: NPO LABS: Sodium: 140 Potassium: 3.5 Chloride: 102 Calcium: 10.0 Corrected Calcium: 11.60 Magnesium: 2.3 CO2: 31 SCr: 1.1 Glucose: 130-167 Albumin: 2.0 AST: 26 ALT: 25 TPN FORMULA: TPN TYPE: Central Continuous AMINO ACIDS: 75 gm DEXTROSE: 250 gm LIPIDS: 40 gm SODIUM CHLORIDE: - mEq SODIUM ACETATE: - mEq SODIUM PHOSPHATE: - mmol POTASSIUM CHLORIDE: 80 mEq POTASSIUM ACETATE: - mEq POTASSIUM PHOSPHATE: - mmol MAGNESIUM: 20 mEq CALCIUM: - mEq INSULIN: 15 units MULTIPLE VITAMIN: 10 ml TRACE ELEMENTS: 1 ml(s) TPN PLAN: Add 10 meq KCl to TPN for plasma K trending down. Other labs stable. Trig , BMP/phos Thursday. R: Continue TPN ABOVE. Will monitor electrolytes, glucose, and tolerance to TPN. [facility], 09/17/19 [id number]
--- NOTE | 2019-09-17 10:45 | PDOC ---
PULMONARY PROGRESS NOTES Subjective Patient intubated on 07/10 , s/p trach 4/6, Remains on TS, tolerated pmv for short period of time pt is walking her Vitals Vital Signs Date Time Temp Pulse Resp B/P (MAP) Pulse Ox O2 Delivery O2 Flow Rate FiO2 09/17/19 09:02 32 93 Room Air 09/17/19 06:00 99 123/69 (87) 09/17/19 04:00 99.0 99.0 ROS: No Chest Pain, No Abdominal Pain, No Increase Cough General: Alert, No acute distress HEENT: Other (trach midline ) Lungs: Other (Good air movement but having a lot of productive sputum from her tracheostomy site) Cardiovascular: S1, S2 Abdomen: Soft, Non-tender Neuro Exam: Alert Extremities: Other (+3 generalized edema ) Skin: Warm, Dry Labs Laboratory Tests Test 09/15/19 12:40 09/15/19 17:50 09/15/19 23:45 09/16/19 05:50 Glucose (Fingerstick) 237 mg/dL (70-99) 171 mg/dL (70-99) 168 mg/dL (70-99) White Blood Count 16.0 x10^3/uL (4.0-11.0) Red Blood Count 2.83 x10^6/uL (3.50-5.40) Hemoglobin 8.0 g/dL (12.0-15.5) Hematocrit 24.5 % (36.0-47.0) Mean Corpuscular Volume 86 fL (79-100) Mean Corpuscular Hemoglobin 28 pg (25-35) Mean Corpuscular Hemoglobin Concent 33 g/dL (31-37) Red Cell Distribution Width 19.2 % (11.5-14.5) Platelet Count 440 x10^3/uL (140-400) Neutrophils (%) (Auto) 77 % (31-73) Lymphocytes (%) (Auto) 15 % (24-48) Monocytes (%) (Auto) 7 % (0-9) Eosinophils (%) (Auto) 1 % (0-3) Basophils (%) (Auto) 0 % (0-3) Neutrophils # (Auto) 12.3 x10^3/uL (1.8-7.7) Lymphocytes # (Auto) 2.4 x10^3/uL (1.0-4.8) Monocytes # (Auto) 1.1 x10^3/uL (0.0-1.1) Eosinophils # (Auto) 0.1 x10^3/uL (0.0-0.7) Basophils # (Auto) 0.0 x10^3/uL (0.0-0.2) Sodium Level 138 mmol/L (136-145) Potassium Level 3.8 mmol/L (3.5-5.1) Chloride Level 99 mmol/L (98-107) Carbon Dioxide Level 31 mmol/L (21-32) Anion Gap 8 (6-14) Blood Urea Nitrogen 36 mg/dL (7-20) Creatinine 0.9 mg/dL (0.6-1.0) Estimated GFR (Cockcroft-Gault) 66.5 BUN/Creatinine Ratio 40 (6-20) Glucose Level 146 mg/dL (70-99) Calcium Level 10.0 mg/dL (8.5-10.1) Magnesium Level 2.2 mg/dL (1.8-2.4) Total Bilirubin 0.7 mg/dL (0.2-1.0) Aspartate Amino Transf (AST/SGOT) 19 U/L (15-37) Alanine Aminotransferase (ALT/SGPT) 20 U/L (14-59) Alkaline Phosphatase 111 U/L (46-116) Total Protein 7.3 g/dL (6.4-8.2) Albumin 2.1 g/dL (3.4-5.0) Albumin/Globulin Ratio 0.4 (1.0-1.7) Test 09/16/19 06:18 09/16/19 12:26 09/16/19 16:58 09/17/19 00:29 Glucose (Fingerstick) 143 mg/dL (70-99) 189 mg/dL (70-99) 186 mg/dL (70-99) 167 mg/dL (70-99) Test 09/17/19 06:00 09/17/19 06:13 White Blood Count 14.2 x10^3/uL (4.0-11.0) Red Blood Count 2.69 x10^6/uL (3.50-5.40) Hemoglobin 7.6 g/dL (12.0-15.5) Hematocrit 23.3 % (36.0-47.0) Mean Corpuscular Volume 87 fL (79-100) Mean Corpuscular Hemoglobin 28 pg (25-35) Mean Corpuscular Hemoglobin Concent 32 g/dL (31-37) Red Cell Distribution Width 19.2 % (11.5-14.5) Platelet Count 437 x10^3/uL (140-400) Neutrophils (%) (Auto) 74 % (31-73) Lymphocytes (%) (Auto) 16 % (24-48) Monocytes (%) (Auto) 9 % (0-9) Eosinophils (%) (Auto) 1 % (0-3) Basophils (%) (Auto) 0 % (0-3) Neutrophils # (Auto) 10.6 x10^3/uL (1.8-7.7) Lymphocytes # (Auto) 2.3 x10^3/uL (1.0-4.8) Monocytes # (Auto) 1.2 x10^3/uL (0.0-1.1) Eosinophils # (Auto) 0.1 x10^3/uL (0.0-0.7) Basophils # (Auto) 0.0 x10^3/uL (0.0-0.2) Sodium Level 140 mmol/L (136-145) Potassium Level 3.5 mmol/L (3.5-5.1) Chloride Level 102 mmol/L (98-107) Carbon Dioxide Level 31 mmol/L (21-32) Anion Gap 7 (6-14) Blood Urea Nitrogen 36 mg/dL (7-20) Creatinine 1.1 mg/dL (0.6-1.0) Estimated GFR (Cockcroft-Gault) 52.8 BUN/Creatinine Ratio 33 (6-20) Glucose Level 143 mg/dL (70-99) Calcium Level 10.0 mg/dL (8.5-10.1) Total Bilirubin 0.7 mg/dL (0.2-1.0) Aspartate Amino Transf (AST/SGOT) 15 U/L (15-37) Alanine Aminotransferase (ALT/SGPT) 14 U/L (14-59) Alkaline Phosphatase 109 U/L (46-116) Total Protein 6.7 g/dL (6.4-8.2) Albumin 2.0 g/dL (3.4-5.0) Albumin/Globulin Ratio 0.4 (1.0-1.7) Glucose (Fingerstick) 130 mg/dL (70-99) Laboratory Tests Test 09/16/19 12:26 09/16/19 16:58 09/17/19 00:29 09/17/19 06:00 Glucose (Fingerstick) 189 mg/dL (70-99) 186 mg/dL (70-99) 167 mg/dL (70-99) White Blood Count 14.2 x10^3/uL (4.0-11.0) Red Blood Count 2.69 x10^6/uL (3.50-5.40) Hemoglobin 7.6 g/dL (12.0-15.5) Hematocrit 23.3 % (36.0-47.0) Mean Corpuscular Volume 87 fL (79-100) Mean Corpuscular Hemoglobin 28 pg (25-35) Mean Corpuscular Hemoglobin Concent 32 g/dL (31-37) Red Cell Distribution Width 19.2 % (11.5-14.5) Platelet Count 437 x10^3/uL (140-400) Neutrophils (%) (Auto) 74 % (31-73) Lymphocytes (%) (Auto) 16 % (24-48) Monocytes (%) (Auto) 9 % (0-9) Eosinophils (%) (Auto) 1 % (0-3) Basophils (%) (Auto) 0 % (0-3) Neutrophils # (Auto) 10.6 x10^3/uL (1.8-7.7) Lymphocytes # (Auto) 2.3 x10^3/uL (1.0-4.8) Monocytes # (Auto) 1.2 x10^3/uL (0.0-1.1) Eosinophils # (Auto) 0.1 x10^3/uL (0.0-0.7) Basophils # (Auto) 0.0 x10^3/uL (0.0-0.2) Sodium Level 140 mmol/L (136-145) Potassium Level 3.5 mmol/L (3.5-5.1) Chloride Level 102 mmol/L (98-107) Carbon Dioxide Level 31 mmol/L (21-32) Anion Gap 7 (6-14) Blood Urea Nitrogen 36 mg/dL (7-20) Creatinine 1.1 mg/dL (0.6-1.0) Estimated GFR (Cockcroft-Gault) 52.8 BUN/Creatinine Ratio 33 (6-20) Glucose Level 143 mg/dL (70-99) Calcium Level 10.0 mg/dL (8.5-10.1) Total Bilirubin 0.7 mg/dL (0.2-1.0) Aspartate Amino Transf (AST/SGOT) 15 U/L (15-37) Alanine Aminotransferase (ALT/SGPT) 14 U/L (14-59) Alkaline Phosphatase 109 U/L (46-116) Total Protein 6.7 g/dL (6.4-8.2) Albumin 2.0 g/dL (3.4-5.0) Albumin/Globulin Ratio 0.4 (1.0-1.7) Test 09/17/19 06:13 Glucose (Fingerstick) 130 mg/dL (70-99) Medications Active Scripts Medications Dose Route/Sig Max Daily Dose Days Date Category Bisoprolol Fumarate 5 Mg Tablet 10 Mg PO DAILY 07/04/19 Reported Comments cxr reviewed, Impression . IMPRESSION: 1. Acute hypoxemic respiratory failure secondary to ARDS status post trach, 2. Gallstone pancreatitis 3. Severe metabolic acidosis.stable 4. Acute kidney injury-stable, Off HD-- continue to improve 5. Acute gallstone pancreatitis. 6. Hypoalbuminemia. 7. Moderate persistent effusions, s/p left thora 08/29 8. Fever- Per ID, per surgery--resolved 9. Chronic anemia 10. Covid 19 testing negative 11. Moderate to large ascites-S/P paracentisis 12.S/P paracentisis with 4 liters removed on 08/03/19 13. S/P IR drain placement on 08/26/2019 Plan . 1.Continue supplemental oxygen via trach shield-- PMV/capping as tolerated 2. s/p thoracentesis, 08/29, 3 litres removed 3. Follow surgery recs-- S/P 3 drain placed in IR on 08/26/2019 4. Follow ID recs for ABX 5. Follow nephrology recs 6. Continue TPN DVT/GI PPX: heparin SQ/ protonix PT/OT D/W RN and pt CODE:FULL TEN WHITFIELD MD September 17, 2019 10:45
--- NOTE | 2019-09-17 12:46 | PDOC ---
[facility] [facility] PROGRESS NOTE Chief Complaint Chief Complaint Acute hypoxic Respiratory failure requiring mechanical ventilation (now extubated for several days but still with tracheostomy) Tracheostomy bilateral pleural effusions/pulm edema Sepsis Severe Acute gallstone pancreatitis (not a surgical candidate at this time) with necrosis Acute kidney failure now requiring dialysis Salpingitis Gallstones (Calculus of gallbladder with acute cholecystitis without obstruc tion) HTN Leukocytosis Hypoxia Uterine fibroid Intractable pain Intractable nausea Covid 19 negative. Acute on chronic anemia EEG: No seizure activityFever - better currently - intermittent could be from underlying pancreatitis blood cults 08/21 - neg so far ? Ileus with vomiting Abd distention - U/S and CT reviewed s/p 0.4 L of opaque, debris-containing ascites was removed 08/23 Acute pancreatitis with persistent necrosis - 08/14 status post KAYLIN drain placement + C paropsilosis. s/p additional drains 08/25 Anemia - S/p PRBCs Cholelithiasis with thickening of the gallbladder wall. Leucocytosis improving JUANA, hyperkalemia, Metabolic acidosis off dialysis Acute hypoxic resp failure ,bilateral pleural effusion and atelectasis hypocalcemia Prediabetes HTN s/p trach ESRD on HD Hyperglycemia History of Present Illness History of Present Illness 09/17/2019 Patient seen and examined in the ICU She is wiping her face with a cough Discussed with RN Chart reviewed We hope to get her out of the ICU later today if possible 09/16/2019 Patient seen and examined in the ICU once again She is back on NG suction On IV Zosyn Has IV TPN Sedated with Precedex but anxious still Appears somewhat clammy and pale Chart reviewed Discussed with RN She remains critically ill 09/15/2019 Patient seen and examined in the ICU She has an NG that is clamped we are hoping to start some clear liquids but she looks quite ill She is on IV TPN Meropenem changed to IV Zosyn (agree) She has Lind to bedside drainage She is semi-sedated with Precedex Chart reviewed Discussed with RN She remains critically ill Seen bedside. Hb 8. She was just a bit hypoxic, had a mucous plug suctioned. Able to vocalize well with speaking valve, tells me we are being very hard on her and she would like to be drugged back to sleep. She wants to wake up and feel better. On trach shield, T max 100.4. afebrile this a.m. 09/13/2019 Patient seen and examined in the ICU She is up in the chair very frail trying to talk a little shaky Discussed with RN Chart reviewed 09/12/2019 Patient seen and examined in the ICU Patient up in the chair Having a severe coughing episode with a lot of phlegm coming out of her tracheostomy Discussed with RN Discussed with physical therapy Chart reviewed 09/10,. feels well, has been out of room in wheelchair no complaint, still weak, some with not wanting to wear her valve on trach cont other, may be able to work with speech tomorrow, videoswallow OK to try, 09/09, anxiety is up today, she dislikes the valve still, shower and outside today . 09/08 she doesnt want to wear her passy-fantasma valve, discussed str and plan with her. speech following, needs swallow study, but needs to wear her valve longer, cont current able to walk some, walker 09/07 stronger, better, we discussed better oral care she would like to try swallow study, wants to try to eat, speech is following 09/07/2019 She remains in the ICU sitting up and working with OT, getting better if limit pain meds, may do better off the vent, Nurses trying to suction her, that is also improved, Chart reviewed 09/06/2019 Patient seen and examined in the ICU She had an episode yesterday of tachycardia and severe agitation we gave her some Ativan After that she seemed to have stroke symptoms but now that the Ativan has wore off her stroke symptoms have resolved She is on IV meropenem and daptomycin and micafungin Chart reviewed Discussed with RN Patient is still critically ill BRIEF OPERATIVE NOTE Pre-Op Diagnosis Pancreatitis with pseudocysts, suspected infection Post-Op Diagnosis same Procedure Performed CT abdominal Drains x 3 Surgeon Tesfaye Anesthesia Type: Conscious Sedation Findings 3 abdominal drains, 14F, with turbid pancreatic fluid and necrotic debris in each. Complications No immediate 08/26: Patient today somewhat restless and having bilious secretions from ET tube, imaging studies ordered, discussed with rewards consultant. Pretty poor prognosis, hopefully is not a fistula, poor surgical candidate. 08/27: Imaging with no acute events, she seems more stable today compared to yesterday. Encouraged as much activity as possible patient at high risk for severe depression. Vitals/I&O Vitals/I&O: Vital Signs Date Time Temp Pulse Resp B/P (MAP) Pulse Ox O2 Delivery O2 Flow Rate FiO2 09/17/19 09:02 32 93 Room Air 09/17/19 06:00 99 123/69 (87) 09/17/19 04:00 99.0 99.0 I & O 09/16/19 09/16/19 09/17/19 15:00 23:00 07:00 Intake Total 50 ml 1837 ml 726 ml Output Total 1460 ml 935 ml 370 ml Balance -1410 ml 902 ml 356 ml Physical Exam Physical Exam: GENERAL: Propped up in bed, alert, slightly anxious HEENT: Oral cavity clear, NGT NECK: Trach present LUNGS: nonlabored HEART: S1, S2, regular ABDOMEN: mod distention, hypoactive BS, mildly tender, + drains : Lind (08/01) EXTREMITIES: Generalized edema, improving, no cyanosis SKIN: Warm and dry. No generalized rash. WEALTH MANAGEMENT ADVISOR: Very weak RUE-PICC (08/17) clean new LUE-PICC clean General: Alert, Cooperative, No acute distress Heart: Regular rate, Normal S1, Normal S2, No murmurs, Gallops Lungs: Other (Good air movement but having a lot of productive sputum from her tracheostomy site) Abdomen: Soft, No tenderness Extremities: No clubbing, No cyanosis, No edema, Normal pulses, No tenderness/swelling Skin: Other (warm, dry) Labs Labs: Laboratory Tests Test 09/16/19 16:58 09/17/19 00:29 09/17/19 06:00 09/17/19 06:13 Glucose (Fingerstick) 186 mg/dL (70-99) 167 mg/dL (70-99) 130 mg/dL (70-99) White Blood Count 14.2 x10^3/uL (4.0-11.0) Red Blood Count 2.69 x10^6/uL (3.50-5.40) Hemoglobin 7.6 g/dL (12.0-15.5) Hematocrit 23.3 % (36.0-47.0) Mean Corpuscular Volume 87 fL (79-100) Mean Corpuscular Hemoglobin 28 pg (25-35) Mean Corpuscular Hemoglobin Concent 32 g/dL (31-37) Red Cell Distribution Width 19.2 % (11.5-14.5) Platelet Count 437 x10^3/uL (140-400) Neutrophils (%) (Auto) 74 % (31-73) Lymphocytes (%) (Auto) 16 % (24-48) Monocytes (%) (Auto) 9 % (0-9) Eosinophils (%) (Auto) 1 % (0-3) Basophils (%) (Auto) 0 % (0-3) Neutrophils # (Auto) 10.6 x10^3/uL (1.8-7.7) Lymphocytes # (Auto) 2.3 x10^3/uL (1.0-4.8) Monocytes # (Auto) 1.2 x10^3/uL (0.0-1.1) Eosinophils # (Auto) 0.1 x10^3/uL (0.0-0.7) Basophils # (Auto) 0.0 x10^3/uL (0.0-0.2) Sodium Level 140 mmol/L (136-145) Potassium Level 3.5 mmol/L (3.5-5.1) Chloride Level 102 mmol/L (98-107) Carbon Dioxide Level 31 mmol/L (21-32) Anion Gap 7 (6-14) Blood Urea Nitrogen 36 mg/dL (7-20) Creatinine 1.1 mg/dL (0.6-1.0) Estimated GFR (Cockcroft-Gault) 52.8 BUN/Creatinine Ratio 33 (6-20) Glucose Level 143 mg/dL (70-99) Calcium Level 10.0 mg/dL (8.5-10.1) Total Bilirubin 0.7 mg/dL (0.2-1.0) Aspartate Amino Transf (AST/SGOT) 15 U/L (15-37) Alanine Aminotransferase (ALT/SGPT) 14 U/L (14-59) Alkaline Phosphatase 109 U/L (46-116) Total Protein 6.7 g/dL (6.4-8.2) Albumin 2.0 g/dL (3.4-5.0) Albumin/Globulin Ratio 0.4 (1.0-1.7) Assessment and Plan Assessmemt and Plan Problems Medical Problems: (1) Acute pancreatitis Status: Acute (2) Cholelithiasis Status: Acute Acute hypoxic Respiratory failure requiring mechanical ventilation was initially intubated on 07/10 was off for couple of days now back on Severe gallstone pancreatitis (not a surgical candidate at this time) with necrosis Tracheostomy bilateral pleural effusions/pulm edema Severe sepsis Acute kidney failure now requiring dialysis Salpingitis Gallstones (Calculus of gallbladder with acute cholecystitis without obstruction) HTN Leukocytosis Hypoxia Uterine fibroid Intractable pain Intractable nausea Covid 19 negative. Acute on chronic anemia EEG: No seizure activityFever - better currently - intermittent could be from underlying pancreatitis blood cults 08/21 - neg so far ? Ileus with vomiting Abd distention - U/S and CT reviewed s/p 0.4 L of opaque, debris-containing ascites was removed 08/23 Acute pancreatitis with persistent necrosis - 08/14 status post KAYLIN drain placement + C paropsilosis. s/p additional drains 08/25 Anemia - S/p PRBCs Cholelithiasis with thickening of the gallbladder wall. Leucocytosis improving JUANA, hyperkalemia, Metabolic acidosis off dialysis Acute hypoxic resp failure ,bilateral pleural effusion and atelectasis hypocalcemia Prediabetes HTN s/p trach ESRD on HD Hyperglycemia Plan ICU monitoring (we are going to try to transfer her out this afternoon) Wound care Hold off on Ativan for now as she gets too weak with it Humidified O2 via nasal cannula for now but we can use trach shield as backup NG suctioning Nebulizers Continue IV antibiotics and micafungin Sedation with Precedex PRN TPN protocol Continue Lind to bedside drainage Tracheostomy care Hope to eventually move towards decannulation (we have a speaking valve for now) Trend labs Appreciate subspecialist input I am still very concerned about her long-term prognosis ! (she scored a 9 on [place] criteria 3 weeks ago). Total time 32-minute Comment Review of Relevant I have reviewed the following items kolby (where applicable) has been applied. Medications: Current Medications Medications (Trade) Dose Ordered Sig/Yvon Route PRN Reason Start Time Stop Time Status Last Admin Dose Admin Potassium Chloride 70 meq/ Magnesium Sulfate 20 meq/ Multivitamins 10 ml/Chromium/ Copper/Manganese/ Seleni/Zn 1 ml/ Insulin Human Regular 15 unit/ Total Parenteral Nutrition/Amino Acids/Dextrose/ Fat Emulsion Intravenous 1,800 ml @ 75 mls/hr TPN CONT IV 09/16/19 22:00 09/17/19 21:59 09/16/19 23:13 Hemodynamically unstable?: No Is patient in severe pain?: No Is NPO status required?: No BEBO KIRBY III DO September 17, 2019 12:46
--- NOTE | 2019-09-17 13:22 | PDOC ---
SURGICAL PROGRESS NOTE Subjective Pt resting comfortably OK to transfer to floor Vital Signs Vital Signs Date Time Temp Pulse Resp B/P (MAP) Pulse Ox O2 Delivery O2 Flow Rate FiO2 09/17/19 09:02 32 93 Room Air 09/17/19 06:00 99 123/69 (87) 09/17/19 04:00 99.0 99.0 I&O Intake and Output 09/17/19 07:00 Intake Total 2613 ml Output Total 2765 ml Balance -152 ml IV Total 2613 ml Output Urine Total 2700 ml Drainage Total 65 ml Labs Laboratory Tests Test 09/15/19 17:50 09/15/19 23:45 09/16/19 05:50 09/16/19 06:18 Glucose (Fingerstick) 171 mg/dL (70-99) 168 mg/dL (70-99) 143 mg/dL (70-99) White Blood Count 16.0 x10^3/uL (4.0-11.0) Red Blood Count 2.83 x10^6/uL (3.50-5.40) Hemoglobin 8.0 g/dL (12.0-15.5) Hematocrit 24.5 % (36.0-47.0) Mean Corpuscular Volume 86 fL (79-100) Mean Corpuscular Hemoglobin 28 pg (25-35) Mean Corpuscular Hemoglobin Concent 33 g/dL (31-37) Red Cell Distribution Width 19.2 % (11.5-14.5) Platelet Count 440 x10^3/uL (140-400) Neutrophils (%) (Auto) 77 % (31-73) Lymphocytes (%) (Auto) 15 % (24-48) Monocytes (%) (Auto) 7 % (0-9) Eosinophils (%) (Auto) 1 % (0-3) Basophils (%) (Auto) 0 % (0-3) Neutrophils # (Auto) 12.3 x10^3/uL (1.8-7.7) Lymphocytes # (Auto) 2.4 x10^3/uL (1.0-4.8) Monocytes # (Auto) 1.1 x10^3/uL (0.0-1.1) Eosinophils # (Auto) 0.1 x10^3/uL (0.0-0.7) Basophils # (Auto) 0.0 x10^3/uL (0.0-0.2) Sodium Level 138 mmol/L (136-145) Potassium Level 3.8 mmol/L (3.5-5.1) Chloride Level 99 mmol/L (98-107) Carbon Dioxide Level 31 mmol/L (21-32) Anion Gap 8 (6-14) Blood Urea Nitrogen 36 mg/dL (7-20) Creatinine 0.9 mg/dL (0.6-1.0) Estimated GFR (Cockcroft-Gault) 66.5 BUN/Creatinine Ratio 40 (6-20) Glucose Level 146 mg/dL (70-99) Calcium Level 10.0 mg/dL (8.5-10.1) Magnesium Level 2.2 mg/dL (1.8-2.4) Total Bilirubin 0.7 mg/dL (0.2-1.0) Aspartate Amino Transf (AST/SGOT) 19 U/L (15-37) Alanine Aminotransferase (ALT/SGPT) 20 U/L (14-59) Alkaline Phosphatase 111 U/L (46-116) Total Protein 7.3 g/dL (6.4-8.2) Albumin 2.1 g/dL (3.4-5.0) Albumin/Globulin Ratio 0.4 (1.0-1.7) Test 09/16/19 12:26 09/16/19 16:58 09/17/19 00:29 09/17/19 06:00 Glucose (Fingerstick) 189 mg/dL (70-99) 186 mg/dL (70-99) 167 mg/dL (70-99) White Blood Count 14.2 x10^3/uL (4.0-11.0) Red Blood Count 2.69 x10^6/uL (3.50-5.40) Hemoglobin 7.6 g/dL (12.0-15.5) Hematocrit 23.3 % (36.0-47.0) Mean Corpuscular Volume 87 fL (79-100) Mean Corpuscular Hemoglobin 28 pg (25-35) Mean Corpuscular Hemoglobin Concent 32 g/dL (31-37) Red Cell Distribution Width 19.2 % (11.5-14.5) Platelet Count 437 x10^3/uL (140-400) Neutrophils (%) (Auto) 74 % (31-73) Lymphocytes (%) (Auto) 16 % (24-48) Monocytes (%) (Auto) 9 % (0-9) Eosinophils (%) (Auto) 1 % (0-3) Basophils (%) (Auto) 0 % (0-3) Neutrophils # (Auto) 10.6 x10^3/uL (1.8-7.7) Lymphocytes # (Auto) 2.3 x10^3/uL (1.0-4.8) Monocytes # (Auto) 1.2 x10^3/uL (0.0-1.1) Eosinophils # (Auto) 0.1 x10^3/uL (0.0-0.7) Basophils # (Auto) 0.0 x10^3/uL (0.0-0.2) Sodium Level 140 mmol/L (136-145) Potassium Level 3.5 mmol/L (3.5-5.1) Chloride Level 102 mmol/L (98-107) Carbon Dioxide Level 31 mmol/L (21-32) Anion Gap 7 (6-14) Blood Urea Nitrogen 36 mg/dL (7-20) Creatinine 1.1 mg/dL (0.6-1.0) Estimated GFR (Cockcroft-Gault) 52.8 BUN/Creatinine Ratio 33 (6-20) Glucose Level 143 mg/dL (70-99) Calcium Level 10.0 mg/dL (8.5-10.1) Total Bilirubin 0.7 mg/dL (0.2-1.0) Aspartate Amino Transf (AST/SGOT) 15 U/L (15-37) Alanine Aminotransferase (ALT/SGPT) 14 U/L (14-59) Alkaline Phosphatase 109 U/L (46-116) Total Protein 6.7 g/dL (6.4-8.2) Albumin 2.0 g/dL (3.4-5.0) Albumin/Globulin Ratio 0.4 (1.0-1.7) Test 09/17/19 06:13 Glucose (Fingerstick) 130 mg/dL (70-99) Laboratory Tests Test 09/16/19 16:58 09/17/19 00:29 09/17/19 06:00 09/17/19 06:13 Glucose (Fingerstick) 186 mg/dL (70-99) 167 mg/dL (70-99) 130 mg/dL (70-99) White Blood Count 14.2 x10^3/uL (4.0-11.0) Red Blood Count 2.69 x10^6/uL (3.50-5.40) Hemoglobin 7.6 g/dL (12.0-15.5) Hematocrit 23.3 % (36.0-47.0) Mean Corpuscular Volume 87 fL (79-100) Mean Corpuscular Hemoglobin 28 pg (25-35) Mean Corpuscular Hemoglobin Concent 32 g/dL (31-37) Red Cell Distribution Width 19.2 % (11.5-14.5) Platelet Count 437 x10^3/uL (140-400) Neutrophils (%) (Auto) 74 % (31-73) Lymphocytes (%) (Auto) 16 % (24-48) Monocytes (%) (Auto) 9 % (0-9) Eosinophils (%) (Auto) 1 % (0-3) Basophils (%) (Auto) 0 % (0-3) Neutrophils # (Auto) 10.6 x10^3/uL (1.8-7.7) Lymphocytes # (Auto) 2.3 x10^3/uL (1.0-4.8) Monocytes # (Auto) 1.2 x10^3/uL (0.0-1.1) Eosinophils # (Auto) 0.1 x10^3/uL (0.0-0.7) Basophils # (Auto) 0.0 x10^3/uL (0.0-0.2) Sodium Level 140 mmol/L (136-145) Potassium Level 3.5 mmol/L (3.5-5.1) Chloride Level 102 mmol/L (98-107) Carbon Dioxide Level 31 mmol/L (21-32) Anion Gap 7 (6-14) Blood Urea Nitrogen 36 mg/dL (7-20) Creatinine 1.1 mg/dL (0.6-1.0) Estimated GFR (Cockcroft-Gault) 52.8 BUN/Creatinine Ratio 33 (6-20) Glucose Level 143 mg/dL (70-99) Calcium Level 10.0 mg/dL (8.5-10.1) Total Bilirubin 0.7 mg/dL (0.2-1.0) Aspartate Amino Transf (AST/SGOT) 15 U/L (15-37) Alanine Aminotransferase (ALT/SGPT) 14 U/L (14-59) Alkaline Phosphatase 109 U/L (46-116) Total Protein 6.7 g/dL (6.4-8.2) Albumin 2.0 g/dL (3.4-5.0) Albumin/Globulin Ratio 0.4 (1.0-1.7) Problem List Problems Medical Problems: (1) Acute pancreatitis Status: Acute (2) Cholelithiasis Status: Acute DAVON SIMMS MD September 17, 2019 13:22
[2019-09-17] MEDS: ENOXAPARIN 40 MG/0.4 ML SYRINGE. SQ SCH (15:45)
[2019-09-17] MEDS ORDERED: DEXTROSE 70% IV SCH ×8 (22:00)
[2019-09-17] MEDS ORDERED: [UNRECOGNIZED DRUG - OTHER] IV SCH ×8 (22:00)
[2019-09-17] MEDS ORDERED: TOTAL PARENTERAL NUTRITION IV SCH ×8 (22:00)
[2019-09-17] MEDS ORDERED: AMINO ACID IV SCH ×8 (22:00)
[2019-09-18] VITALS (7 sets, daily range): BP systolic 127–140; BP diastolic 70–92
[2019-09-18] MEDS: INSULIN LISPRO 300 UNITS/3 ML VIAL. SQ SCH ×4 (00:06→17:27)
[2019-09-18] MEDS: fentaNYL PF VIAL 100 MCG/2 ML VIAL IVP PRN ×3 (04:02→15:55)
[2019-09-18] MEDS: PIPERACILLIN/TAZOBACTAM 3.375 GM in IV NORMAL SALINE 50ML 50 ML IV SCH ×4 (06:02→23:57)
[2019-09-18] MEDS: FUROSEMIDE 40 MG/4 ML VIAL. IVP SCH ×2 (08:21→14:40)
[2019-09-18] MEDS: PANTOPRAZOLE IV PUSH 40 MG VIAL. IVP SCH (08:22)
--- NOTE | 2019-09-18 08:49 | PDOC ---
Infectious Disease Note Subjective Subjective RUE-PICC has een removed and cath tip sent for culture Fever 101 this morning per nursing Desatuated after tracheal suctioning, now improved on FiO2 33% Minimal output x 3 drains ROS ROS as mentioned above Vital Sign Vital Signs Vital Signs Date Time Temp Pulse Resp B/P (MAP) Pulse Ox O2 Delivery O2 Flow Rate FiO2 09/18/19 04:36 22 Room Air 09/18/19 04:00 98.7 148 138/70 (92) 95 98.7 09/17/19 09:32 8.0 Physical Exam PHYSICAL EXAM GENERAL: Propped up in bed, resting quietly, weak appearing HEENT: Oral cavity clear, NGT NECK: Trach present LUNGS: Clear, nonlabored HEART: S1, S2, regular ABDOMEN: mod distention, bowel sounds present, + KAYLIN drains x 3 : Lind (08/01) EXTREMITIES: Generalized edema. no cyanosis SKIN: Warm and dry. No generalized rash. 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 BLOOD CULTURE Preliminary NO GROWTH AFTER 5 DAYS 08/14. abd fluid AEROBIC RES 1 Final Organism Identification, Yeast Kiana parapsilosis 08/23. abd fluid ANAEROBIC-AEROBIC CULTURE PENDING Objective Assessment Fever intermittent could be from underlying pancreatitis vs aspiration ? Ileus with vomiting Abd distention - U/S and CT reviewed s/p 0.4 L of opaque, debris-containing asci lurdes was removed 08/23 Acute pancreatitis with persistent necrosis - 08/14 status post KAYLIN drain placement + C paropsilosis; 08/23 + yeast & high amylase; s/p additional drains on 08/25 Anemia - S/p PRBCs Cholelithiasis with thickening of the gallbladder wall. Leucocytosis improved JUANA, hyperkalemia, Metabolic acidosis off dialysis Acute hypoxic resp failure ,bilateral pleural effusion and atelectasis hypocalcemia Prediabetes HTN s/p trach Plan Plan of Care continue Zosyn September 13 f/u labs/cath tip culture Aggressive pulmonary toilet Maintain aspiration precaution Supportive care PT and OT as tolerated D/w nursing Attending Co-Sign The patient was seen and interviewed as well as examined at the bedside. The chart was reviewed. The case was discussed. Agree with the plan of care. FRANCA HOBSON APRN September 18, 2019 08:49 KIMMY JONES MD September 18, 2019 12:08
--- NOTE | 2019-09-18 09:25 | PDOC ---
SURGICAL PROGRESS NOTE Subjective Pt sleeping comfortably, drains with min output, but drainage around Vital Signs Vital Signs Date Time Temp Pulse Resp B/P (MAP) Pulse Ox O2 Delivery O2 Flow Rate FiO2 09/18/19 04:36 22 Room Air 09/18/19 04:00 98.7 148 138/70 (92) 95 98.7 09/17/19 09:32 8.0 I&O Intake and Output 09/18/19 07:00 Intake Total 1586.5 ml Output Total 1800 ml Balance -213.5 ml IV Total 1115.5 ml Other 471 ml Output Urine Total 1800 ml # Bowel Movements 1 Abdomen: Soft Labs Laboratory Tests Test 09/16/19 12:26 09/16/19 16:58 09/17/19 00:29 09/17/19 06:00 Glucose (Fingerstick) 189 mg/dL (70-99) 186 mg/dL (70-99) 167 mg/dL (70-99) White Blood Count 14.2 x10^3/uL (4.0-11.0) Red Blood Count 2.69 x10^6/uL (3.50-5.40) Hemoglobin 7.6 g/dL (12.0-15.5) Hematocrit 23.3 % (36.0-47.0) Mean Corpuscular Volume 87 fL (79-100) Mean Corpuscular Hemoglobin 28 pg (25-35) Mean Corpuscular Hemoglobin Concent 32 g/dL (31-37) Red Cell Distribution Width 19.2 % (11.5-14.5) Platelet Count 437 x10^3/uL (140-400) Neutrophils (%) (Auto) 74 % (31-73) Lymphocytes (%) (Auto) 16 % (24-48) Monocytes (%) (Auto) 9 % (0-9) Eosinophils (%) (Auto) 1 % (0-3) Basophils (%) (Auto) 0 % (0-3) Neutrophils # (Auto) 10.6 x10^3/uL (1.8-7.7) Lymphocytes # (Auto) 2.3 x10^3/uL (1.0-4.8) Monocytes # (Auto) 1.2 x10^3/uL (0.0-1.1) Eosinophils # (Auto) 0.1 x10^3/uL (0.0-0.7) Basophils # (Auto) 0.0 x10^3/uL (0.0-0.2) Sodium Level 140 mmol/L (136-145) Potassium Level 3.5 mmol/L (3.5-5.1) Chloride Level 102 mmol/L (98-107) Carbon Dioxide Level 31 mmol/L (21-32) Anion Gap 7 (6-14) Blood Urea Nitrogen 36 mg/dL (7-20) Creatinine 1.1 mg/dL (0.6-1.0) Estimated GFR (Cockcroft-Gault) 52.8 BUN/Creatinine Ratio 33 (6-20) Glucose Level 143 mg/dL (70-99) Calcium Level 10.0 mg/dL (8.5-10.1) Total Bilirubin 0.7 mg/dL (0.2-1.0) Aspartate Amino Transf (AST/SGOT) 15 U/L (15-37) Alanine Aminotransferase (ALT/SGPT) 14 U/L (14-59) Alkaline Phosphatase 109 U/L (46-116) Total Protein 6.7 g/dL (6.4-8.2) Albumin 2.0 g/dL (3.4-5.0) Albumin/Globulin Ratio 0.4 (1.0-1.7) Test 09/17/19 06:13 09/17/19 12:06 09/17/19 16:27 09/17/19 17:57 Glucose (Fingerstick) 130 mg/dL (70-99) 206 mg/dL (70-99) 88 mg/dL (70-99) 112 mg/dL (70-99) Test 09/18/19 00:04 09/18/19 06:04 Glucose (Fingerstick) 189 mg/dL (70-99) 219 mg/dL (70-99) Laboratory Tests Test 09/17/19 12:06 09/17/19 16:27 09/17/19 17:57 09/18/19 00:04 Glucose (Fingerstick) 206 mg/dL (70-99) 88 mg/dL (70-99) 112 mg/dL (70-99) 189 mg/dL (70-99) Test 09/18/19 06:04 Glucose (Fingerstick) 219 mg/dL (70-99) Problem List Problems Medical Problems: (1) Acute pancreatitis Status: Acute (2) Cholelithiasis Status: Acute Assessment/Plan s/p lap exp will remove drains as non fxn may need replacement DAVON SIMMS MD September 18, 2019 09:25
--- NOTE | 2019-09-18 12:16 | PDOC ---
[facility] [facility] PROGRESS NOTE Chief Complaint Chief Complaint Acute hypoxic Respiratory failure requiring mechanical ventilation (now extubated for several days but still with tracheostomy) Tracheostomy bilateral pleural effusions/pulm edema Sepsis Severe Acute gallstone pancreatitis (not a surgical candidate at this time) with necrosis Acute kidney failure now requiring dialysis Salpingitis Gallstones (Calculus of gallbladder with acute cholecystitis without obstruc tion) HTN Leukocytosis Hypoxia Uterine fibroid Intractable pain Intractable nausea Covid 19 negative. Acute on chronic anemia EEG: No seizure activityFever - better currently - intermittent could be from underlying pancreatitis blood cults 08/21 - neg so far ? Ileus with vomiting Abd distention - U/S and CT reviewed s/p 0.4 L of opaque, debris-containing ascites was removed 08/23 Acute pancreatitis with persistent necrosis - 08/14 status post KAYLIN drain placement + C paropsilosis. s/p additional drains 08/25 Anemia - S/p PRBCs Cholelithiasis with thickening of the gallbladder wall. Leucocytosis improving JUANA, hyperkalemia, Metabolic acidosis off dialysis Acute hypoxic resp failure ,bilateral pleural effusion and atelectasis hypocalcemia Prediabetes HTN s/p trach ESRD on HD Hyperglycemia History of Present Illness History of Present Illness 09/18/2019 Patient still in ICU Resting with no apparent distress Chart reviewed 09/17/2019 Patient seen and examined in the ICU She is wiping her face with a cough Discussed with RN Chart reviewed We hope to get her out of the ICU later today if possible 09/16/2019 Patient seen and examined in the ICU once again She is back on NG suction On IV Zosyn Has IV TPN Sedated with Precedex but anxious still Appears somewhat clammy and pale Chart reviewed Discussed with RN She remains critically ill 09/15/2019 Patient seen and examined in the ICU She has an NG that is clamped we are hoping to start some clear liquids but she looks quite ill She is on IV TPN Meropenem changed to IV Zosyn (agree) She has Lind to bedside drainage She is semi-sedated with Precedex Chart reviewed Discussed with RN She remains critically ill Seen bedside. Hb 8. She was just a bit hypoxic, had a mucous plug suctioned. Able to vocalize well with speaking valve, tells me we are being very hard on her and she would like to be drugged back to sleep. She wants to wake up and feel better. On trach shield, T max 100.4. afebrile this a.m. 09/13/2019 Patient seen and examined in the ICU She is up in the chair very frail trying to talk a little shaky Discussed with RN Chart reviewed 09/12/2019 Patient seen and examined in the ICU Patient up in the chair Having a severe coughing episode with a lot of phlegm coming out of her tracheostomy Discussed with RN Discussed with physical therapy Chart reviewed 09/10,. feels well, has been out of room in wheelchair no complaint, still weak, some with not wanting to wear her valve on trach cont other, may be able to work with speech tomorrow, juan ramon OK to try, 09/09, anxiety is up today, she dislikes the valve still, shower and outside today . 09/08 she doesnt want to wear her passy-fantasma valve, discussed str and plan with her. speech following, needs swallow study, but needs to wear her valve longer, cont current able to walk some, walker 09/07 stronger, better, we discussed better oral care she would like to try swallow study, wants to try to eat, speech is foll owing 09/07/2019 She remains in the ICU sitting up and working with OT, getting better if limit pain meds, may do better off the vent, Nurses trying to suction her, that is also improved, Chart reviewed 09/06/2019 Patient seen and examined in the ICU She had an episode yesterday of tachycardia and severe agitation we gave her some Ativan After that she seemed to have stroke symptoms but now that the Ativan has wore off her stroke symptoms have resolved She is on IV meropenem and daptomycin and micafungin Chart reviewed Discussed with RN Patient is still critically ill BRIEF OPERATIVE NOTE Pre-Op Diagnosis Pancreatitis with pseudocysts, suspected infection Post-Op Diagnosis same Procedure Performed CT abdominal Drains x 3 Surgeon Tesfaye Anesthesia Type: Conscious Sedation Findings 3 abdominal drains, 14F, with turbid pancreatic fluid and necrotic debris in each. Complications No immediate 08/26: Patient today somewhat restless and having bilious secretions from ET tube, imaging studies ordered, discussed with real estate listing consultant. Pretty poor prognosis, hopefully is not a fistula, poor surgical candidate. 08/27: Imaging with no acute events, she seems more stable today compared to yesterday. Encouraged as much activity as possible patient at high risk for severe depression. Vitals/I&O Vitals/I&O: Vital Signs Date Time Temp Pulse Resp B/P (MAP) Pulse Ox O2 Delivery O2 Flow Rate FiO2 09/18/19 10:54 95 Room Air 09/18/19 08:00 101.3 144 24 140/75 (96) 101.3 09/17/19 09:32 8.0 I & O 09/17/19 09/17/19 09/18/19 15:00 23:00 07:00 Intake Total 621 ml 965.5 ml Output Total 725 ml 375 ml 700 ml Balance -725 ml 246 ml 265.5 ml Physical Exam Physical Exam: GENERAL: Propped up in bed, resting quietly, weak appearing HEENT: Oral cavity clear, NGT NECK: Trach present LUNGS: Clear, nonlabored HEART: S1, S2, regular ABDOMEN: mod distention, bowel sounds present, + KAYLIN drains x 3 : Lind (08/01) EXTREMITIES: Generalized edema. no cyanosis SKIN: Warm and dry. No generalized rash. 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 to voice, very weak LUE-PICC (09/15) without signsof complications General: Alert, Cooperative, No acute distress Heart: Regular rate, Normal S1, Normal S2, No murmurs, Gallops Lungs: Other (Good air movement but having a lot of productive sputum from her tracheostomy site) Abdomen: Soft Extremities: No clubbing, No cyanosis, No edema, Normal pulses, No te nderness/swelling Skin: Other (warm, dry) Labs Labs: Laboratory Tests Test 09/17/19 16:27 09/17/19 17:57 09/18/19 00:04 09/18/19 06:04 Glucose (Fingerstick) 88 mg/dL (70-99) 112 mg/dL (70-99) 189 mg/dL (70-99) 219 mg/dL (70-99) Assessment and Plan Assessmemt and Plan Problems Medical Problems: (1) Acute pancreatitis Status: Acute (2) Cholelithiasis Status: Acute Acute hypoxic Respiratory failure requiring mechanical ventilation was initially intubated on 07/10 was off for couple of days now back on Severe gallstone pancreatitis (not a surgical candidate at this time) with necrosis Tracheostomy bilateral pleural effusions/pulm edema Severe sepsis Acute kidney failure now requiring dialysis Salpingitis Gallstones (Calculus of gallbladder with acute cholecystitis without obstruction) HTN Leukocytosis Hypoxia Uterine fibroid Intractable pain Intractable nausea Covid 19 negative. Acute on chronic anemia EEG: No seizure activityFever - better currently - intermittent could be from underlying pancreatitis blood cults 08/21 - neg so far ? Ileus with vomiting Abd distention - U/S and CT reviewed s/p 0.4 L of opaque, debris-containing ascites was removed 08/23 Acute pancreatitis with persistent necrosis - 08/14 status post KAYLIN drain placement + C paropsilosis. s/p additional drains 08/25 Anemia - S/p PRBCs Cholelithiasis with thickening of the gallbladder wall. Leucocytosis improving JUANA, hyperkalemia, Metabolic acidosis off dialysis Acute hypoxic resp failure ,bilateral pleural effusion and atelectasis hypocalcemia Prediabetes HTN s/p trach ESRD on HD Hyperglycemia Plan ICU monitoring (we are going to try to transfer her out this afternoon) Wound care Hold off on Ativan for now as she gets too weak with it Humidified O2 via nasal cannula for now but we can use trach shield as backup NG suctioning Nebulizers Continue IV antibiotics and micafungin Sedation with Precedex PRN TPN protocol Continue Lind to bedside drainage Tracheostomy care Hope to eventually move towards decannulation (we have a speaking valve for now) Trend labs Appreciate subspecialist input I am still very concerned about her long-term prognosis ! (she scored a 9 on [place] criteria 4 weeks ago). Comment Review of Relevant I have reviewed the following items kolby (where applicable) has been applied. Medications: Current Medications Medications (Trade) Dose Ordered Sig/Yvon Route PRN Reason Start Time Stop Time Status Last Admin Dose Admin Potassium Chloride 80 meq/ Magnesium Sulfate 20 meq/ Multivitamins 10 ml/Chromium/ Copper/Manganese/ Seleni/Zn 1 ml/ Insulin Human Regular 15 unit/ Total Parenteral Nutrition/Amino Acids/Dextrose/ Fat Emulsion Intravenous 1,800 ml @ 75 mls/hr TPN CONT IV 09/17/19 22:00 09/18/19 21:59 09/17/19 22:30 Hemodynamically unstable?: No Is patient in severe pain?: No Is NPO status required?: No CASTLE,NIAL K III DO September 18, 2019 12:16
[2019-09-18] MEDS: TPN PER PHARMACY MC PRN (12:28)
--- NOTE | 2019-09-18 12:28 | NUR ---
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, 8 inches Weight: 76.0 kg Current diet: NPO LABS: Sodium: 140 Potassium: 3.5 Chloride: 102 Calcium: 10.0 Corrected Calcium: 11.60 Magnesium: 2.3 CO2: 31 SCr: 1.1 Glucose: 130-167 Albumin: 2.0 AST: 26 ALT: 25 TPN FORMULA: TPN TYPE: Central Continuous AMINO ACIDS: 75 gm DEXTROSE: 250 gm LIPIDS: 40 gm POTASSIUM CHLORIDE: 80 mEq MAGNESIUM: 20 mEq INSULIN: 15 units MULTIPLE VITAMIN: 10 ml TRACE ELEMENTS: 1 ml(s) TPN PLAN: No labs today. Continue same. R: Continue TPN Will monitor electrolytes, glucose, and tolerance to TPN. Raeann Mcdonnell RPH, 09/18/19 [id number]
--- NOTE | 2019-09-18 14:15 | NUR ---
KAYILN drains removed per Dr. Tovar's order. One KAYLIN on left side removed without difficulty. On right side both KAYLIN drains removed. Lower anterior drain immediately began oozing copious amounts of gonzalez, creamy drainage. Colostomy bag applied to site. 4x4's applied to other KAYLIN drain removal sites. Dr. Tovar notified.
[2019-09-18] MEDS: ENOXAPARIN 40 MG/0.4 ML SYRINGE. SQ SCH (17:25)
--- NOTE | 2019-09-18 18:08 | PDOC ---
PULMONARY PROGRESS NOTES Subjective Patient intubated on 07/10 , s/p trach 4/6, has cough Remains on TS, tolerated pmv for short period of time Vitals Vital Signs Date Time Temp Pulse Resp B/P (MAP) Pulse Ox O2 Delivery O2 Flow Rate FiO2 09/18/19 16:49 32 95 Room Air 8.0 09/18/19 15:00 98.0 141 127/72 (90) 98.0 ROS: No Chest Pain, No Abdominal Pain, No Increase Cough General: Alert, No acute distress HEENT: Other (trach midline ) Lungs: Other (Good air movement but having a lot of productive sputum from her tracheostomy site) Cardiovascular: S1, S2 Abdomen: Soft, Non-tender Neuro Exam: Alert Extremities: Other (+3 generalized edema ) Skin: Warm, Dry Labs Laboratory Tests Test 09/17/19 00:29 09/17/19 06:00 09/17/19 06:13 09/17/19 12:06 Glucose (Fingerstick) 167 mg/dL (70-99) 130 mg/dL (70-99) 206 mg/dL (70-99) White Blood Count 14.2 x10^3/uL (4.0-11.0) Red Blood Count 2.69 x10^6/uL (3.50-5.40) Hemoglobin 7.6 g/dL (12.0-15.5) Hematocrit 23.3 % (36.0-47.0) Mean Corpuscular Volume 87 fL (79-100) Mean Corpuscular Hemoglobin 28 pg (25-35) Mean Corpuscular Hemoglobin Concent 32 g/dL (31-37) Red Cell Distribution Width 19.2 % (11.5-14.5) Platelet Count 437 x10^3/uL (140-400) Neutrophils (%) (Auto) 74 % (31-73) Lymphocytes (%) (Auto) 16 % (24-48) Monocytes (%) (Auto) 9 % (0-9) Eosinophils (%) (Auto) 1 % (0-3) Basophils (%) (Auto) 0 % (0-3) Neutrophils # (Auto) 10.6 x10^3/uL (1.8-7.7) Lymphocytes # (Auto) 2.3 x10^3/uL (1.0-4.8) Monocytes # (Auto) 1.2 x10^3/uL (0.0-1.1) Eosinophils # (Auto) 0.1 x10^3/uL (0.0-0.7) Basophils # (Auto) 0.0 x10^3/uL (0.0-0.2) Sodium Level 140 mmol/L (136-145) Potassium Level 3.5 mmol/L (3.5-5.1) Chloride Level 102 mmol/L (98-107) Carbon Dioxide Level 31 mmol/L (21-32) Anion Gap 7 (6-14) Blood Urea Nitrogen 36 mg/dL (7-20) Creatinine 1.1 mg/dL (0.6-1.0) Estimated GFR (Cockcroft-Gault) 52.8 BUN/Creatinine Ratio 33 (6-20) Glucose Level 143 mg/dL (70-99) Calcium Level 10.0 mg/dL (8.5-10.1) Total Bilirubin 0.7 mg/dL (0.2-1.0) Aspartate Amino Transf (AST/SGOT) 15 U/L (15-37) Alanine Aminotransferase (ALT/SGPT) 14 U/L (14-59) Alkaline Phosphatase 109 U/L (46-116) Total Protein 6.7 g/dL (6.4-8.2) Albumin 2.0 g/dL (3.4-5.0) Albumin/Globulin Ratio 0.4 (1.0-1.7) Test 09/17/19 16:27 09/17/19 17:57 09/18/19 00:04 09/18/19 06:04 Glucose (Fingerstick) 88 mg/dL (70-99) 112 mg/dL (70-99) 189 mg/dL (70-99) 219 mg/dL (70-99) Test 09/18/19 12:23 09/18/19 17:24 Glucose (Fingerstick) 225 mg/dL (70-99) 244 mg/dL (70-99) Laboratory Tests Test 09/18/19 00:04 09/18/19 06:04 09/18/19 12:23 09/18/19 17:24 Glucose (Fingerstick) 189 mg/dL (70-99) 219 mg/dL (70-99) 225 mg/dL (70-99) 244 mg/dL (70-99) Medications Active Scripts Medications Dose Route/Sig Max Daily Dose Days Date Category Bisoprolol Fumarate 5 Mg Tablet 10 Mg PO DAILY 07/04/19 Reported Comments cxr reviewed, Impression . IMPRESSION: 1. Acute hypoxemic respiratory failure secondary to ARDS status post trach, 2. Gallstone pancreatitis 3. Severe metabolic acidosis.stable 4. Acute kidney injury-stable, Off HD-- continue to improve 5. Acute gallstone pancreatitis. 6. Hypoalbuminemia. 7. Moderate persistent effusions, s/p left thora 08/29 8. Fever- Per ID, per surgery--resolved 9. Chronic anemia 10. Covid 19 testing negative 11. Moderate to large ascites-S/P paracentisis 12.S/P paracentisis with 4 liters removed on 08/03/19 13. S/P IR drain placement on 08/26/2019 Plan . 1.Continue supplemental oxygen via trach shield-- PMV/capping as tolerated 2. s/p thoracentesis, 08/29, 3 litres removed 3. Follow surgery recs-- S/P 3 drain placed in IR on 08/26/2019 4. Follow ID recs for ABX 5. Follow nephrology recs 6. Continue TPN DVT/GI PPX: heparin SQ/ protonix PT/OT D/W RN and pt CODE:TEN BOLIVAR MD September 18, 2019 18:08
[2019-09-18] MEDS ORDERED: DEXTROSE 70% IV SCH ×8 (22:00)
[2019-09-18] MEDS ORDERED: TOTAL PARENTERAL NUTRITION IV SCH ×8 (22:00)
[2019-09-18] MEDS ORDERED: [UNRECOGNIZED DRUG - OTHER] IV SCH ×8 (22:00)
[2019-09-18] MEDS ORDERED: AMINO ACID IV SCH ×8 (22:00)
[2019-09-19] VITALS (7 sets, daily range): BP systolic 117–184; BP diastolic 78–99
[2019-09-19] MEDS: INSULIN LISPRO 300 UNITS/3 ML VIAL. SQ SCH ×4 (00:07→17:57)
[2019-09-19] MEDS: fentaNYL PF VIAL 100 MCG/2 ML VIAL IVP PRN ×2 (01:14→12:07)
[2019-09-19] MEDS: PIPERACILLIN/TAZOBACTAM 3.375 GM in IV NORMAL SALINE 50ML 50 ML IV SCH ×3 (05:34→17:50)
[2019-09-19 06:01] LABS: CALCIUM 9.9 mg/dL (8.5-10.1); CREATININE 1.1 mg/dL (0.6-1.0); GFR 52.8; PHOSPHORUS 3.6 mg/dL (2.6-4.7); POTASSIUM 3.2 mmol/L (3.5-5.1)
[2019-09-19 06:03] LABS: BASO % 0 % (0-3); EOS # 0.1 x10^3/uL (0.0-0.7); EOS % 1 % (0-3); HEMATOCRIT 26.7 % (36.0-47.0); HEMOGLOBIN 8.4 g/dL (12.0-15.5); LYMPH # 2.6 x10^3/uL (1.0-4.8); LYMPH % 20 % (24-48); MEAN CORPUSCULAR HEMOGLOBIN 27 pg (25-35); MEAN CORPUSCULAR HGB CONC 31 g/dL (31-37); MEAN CORPUSCULAR VOLUME 87 fL (79-100); MONO # 1.3 x10^3/uL (0.0-1.1); MONO % 10 % (0-9); NEUT # 8.6 x10^3/uL (1.8-7.7); NEUT % 68 % (31-73); PLATELET COUNT 554 x10^3/uL (140-400); RED BLOOD COUNT 3.07 x10^6/uL (3.50-5.40); RED CELL DISTRIBUTION WIDTH 19.3 % (11.5-14.5); WHITE BLOOD COUNT 12.6 x10^3/uL (4.0-11.0)
[2019-09-19] MEDS: PANTOPRAZOLE IV PUSH 40 MG VIAL. IVP SCH (07:55)
[2019-09-19] MEDS: FUROSEMIDE 40 MG/4 ML VIAL. IVP SCH ×2 (07:56→13:32)
--- NOTE | 2019-09-19 08:37 | PDOC ---
Infectious Disease Note Subjective Subjective awake in bed, KAYLIN out ROS ROS no n/v/d/sob Vital Sign Vital Signs Vital Signs Date Time Temp Pulse Resp B/P (MAP) Pulse Ox O2 Delivery O2 Flow Rate FiO2 09/19/19 08:10 48 160/79 (106) 100 Tracheal Collar 09/19/19 07:00 99.4 138 99.4 09/18/19 20:00 8.0 Physical Exam PHYSICAL EXAM GENERAL: Propped up in bed, resting quietly, weak appearing HEENT: Oral cavity clear, NGT NECK: Trach present LUNGS: Clear, nonlabored HEART: S1, S2, regular ABDOMEN: mod distention, bowel sounds present, + KAYLIN drains x 3 : Lind (08/01) EXTREMITIES: Generalized edema. no cyanosis SKIN: Warm and dry. No generalized rash. CRYPTANALYST:Opens eyes to voice, very weak LUE-PICC (09/15) without signsof complications Labs Lab Laboratory Tests Test 09/18/19 12:23 09/18/19 17:24 09/19/19 00:04 09/19/19 05:30 Glucose (Fingerstick) 225 mg/dL (70-99) 244 mg/dL (70-99) 175 mg/dL (70-99) White Blood Count 12.6 x10^3/uL (4.0-11.0) Red Blood Count 3.07 x10^6/uL (3.50-5.40) Hemoglobin 8.4 g/dL (12.0-15.5) Hematocrit 26.7 % (36.0-47.0) Mean Corpuscular Volume 87 fL (79-100) Mean Corpuscular Hemoglobin 27 pg (25-35) Mean Corpuscular Hemoglobin Concent 31 g/dL (31-37) Red Cell Distribution Width 19.3 % (11.5-14.5) Platelet Count 554 x10^3/uL (140-400) Neutrophils (%) (Auto) 68 % (31-73) Lymphocytes (%) (Auto) 20 % (24-48) Monocytes (%) (Auto) 10 % (0-9) Eosinophils (%) (Auto) 1 % (0-3) Basophils (%) (Auto) 0 % (0-3) Neutrophils # (Auto) 8.6 x10^3/uL (1.8-7.7) Lymphocytes # (Auto) 2.6 x10^3/uL (1.0-4.8) Monocytes # (Auto) 1.3 x10^3/uL (0.0-1.1) Eosinophils # (Auto) 0.1 x10^3/uL (0.0-0.7) Basophils # (Auto) 0.0 x10^3/uL (0.0-0.2) Sodium Level 145 mmol/L (136-145) Potassium Level 3.2 mmol/L (3.5-5.1) Chloride Level 106 mmol/L (98-107) Carbon Dioxide Level 29 mmol/L (21-32) Anion Gap 10 (6-14) Blood Urea Nitrogen 34 mg/dL (7-20) Creatinine 1.1 mg/dL (0.6-1.0) Estimated GFR (Cockcroft-Gault) 52.8 Glucose Level 188 mg/dL (70-99) Calcium Level 9.9 mg/dL (8.5-10.1) Phosphorus Level 3.6 mg/dL (2.6-4.7) Test 09/19/19 05:48 Glucose (Fingerstick) 189 mg/dL (70-99) Micro Objective Assessment Fever intermittent could be from underlying pancreatitis vs aspiration ? Ileus with vomiting Abd distention - U/S and CT reviewed s/p 0.4 L of opaque, debris-containing ascites was removed 08/23 Acute pancreatitis with persistent necrosis - 08/14 status post KAYLIN drain placement + C paropsilosis; 08/23 + yeast & high amylase; s/p additional drains on 08/25 Anemia - S/p PRBCs Cholelithiasis with thickening of the gallbladder wall. Leucocytosis improved JUANA, hyperkalemia, Metabolic acidosis off dialysis Acute hypoxic resp failure ,bilateral pleural effusion and atelectasis hypocalcemia Prediabetes HTN s/p trach Plan Plan of Care continue Zosyn September 13 f/u labs/cath tip culture Aggressive pulmonary toilet Maintain aspiration precaution Supportive care PT and OT as tolerated D/w nursing KIMMY JONES MD Sep 19, 2019 08:37
[2019-09-19] MEDS ORDERED: POTASSIUM CHLORIDE 20MEQ 100 ML IV ONE (10:00)
--- NOTE | 2019-09-19 10:21 | PDOC ---
PROGRESS NOTES Assessment Problems Medical Problems: (1) Acute pancreatitis Status: Acute (2) Cholelithiasis Status: Acute ]]Respiratory failure. Single seizure on 06/23, no recurrence. Metabolic encephalopathy. Fevers. Metabolic acidosis. Diffuse pulmonary infiltrate. Pleural effusion. Pancreatitis, necrotizing. Gallstone. Leukocytosis. Lymphopenia. Electrolytes imbalances. Hyperglycemia. DM. HTN. HLD. Anemia. Abnormal CXR. Obesity. Ascites and pleural effusion Ileus with vomiting Anemia JUANA Hyperkalemia Metabolic acidosis Hypertension S/P trach Plan Keppra if she has further seizures. Treat medical diseases. Subjective No complaints Objective Vital Signs Date Time Temp Pulse Resp B/P (MAP) Pulse Ox O2 Delivery O2 Flow Rate FiO2 09/19/19 08:10 48 160/79 (106) 100 Tracheal Collar 09/19/19 08:00 10.0 09/19/19 07:00 99.4 138 99.4 Intake and Output 09/19/19 07:00 Intake Total 923 ml Output Total 1450 ml Balance -527 ml Intake Oral 0 ml Other 923 ml Output Urine Total 1450 ml # Bowel Movements 2 PHYSICAL EXAM Alert, follows commands. Tracheostomy shield PERRL. EOMI. CN: no focal findings. Muscle tone: normal. Muscle strength: 3-4/5 DTR: 1+ Plantar reflex: Silent Gait: not examined in bed. Sensory exam: normal Cerebellar: normal Review of Relevant I have reviewed the following items kolby (where applicable) has been applied. Labs Laboratory Tests Test 09/17/19 12:06 09/17/19 16:27 09/17/19 17:57 09/18/19 00:04 Glucose (Fingerstick) 206 mg/dL (70-99) 88 mg/dL (70-99) 112 mg/dL (70-99) 189 mg/dL (70-99) Test 09/18/19 06:04 09/18/19 12:23 09/18/19 17:24 09/19/19 00:04 Glucose (Fingerstick) 219 mg/dL (70-99) 225 mg/dL (70-99) 244 mg/dL (70-99) 175 mg/dL (70-99) Test 09/19/19 05:30 09/19/19 05:48 White Blood Count 12.6 x10^3/uL (4.0-11.0) Red Blood Count 3.07 x10^6/uL (3.50-5.40) Hemoglobin 8.4 g/dL (12.0-15.5) Hematocrit 26.7 % (36.0-47.0) Mean Corpuscular Volume 87 fL (79-100) Mean Corpuscular Hemoglobin 27 pg (25-35) Mean Corpuscular Hemoglobin Concent 31 g/dL (31-37) Red Cell Distribution Width 19.3 % (11.5-14.5) Platelet Count 554 x10^3/uL (140-400) Neutrophils (%) (Auto) 68 % (31-73) Lymphocytes (%) (Auto) 20 % (24-48) Monocytes (%) (Auto) 10 % (0-9) Eosinophils (%) (Auto) 1 % (0-3) Basophils (%) (Auto) 0 % (0-3) Neutrophils # (Auto) 8.6 x10^3/uL (1.8-7.7) Lymphocytes # (Auto) 2.6 x10^3/uL (1.0-4.8) Monocytes # (Auto) 1.3 x10^3/uL (0.0-1.1) Eosinophils # (Auto) 0.1 x10^3/uL (0.0-0.7) Basophils # (Auto) 0.0 x10^3/uL (0.0-0.2) Sodium Level 145 mmol/L (136-145) Potassium Level 3.2 mmol/L (3.5-5.1) Chloride Level 106 mmol/L (98-107) Carbon Dioxide Level 29 mmol/L (21-32) Anion Gap 10 (6-14) Blood Urea Nitrogen 34 mg/dL (7-20) Creatinine 1.1 mg/dL (0.6-1.0) Estimated GFR (Cockcroft-Gault) 52.8 Glucose Level 188 mg/dL (70-99) Calcium Level 9.9 mg/dL (8.5-10.1) Phosphorus Level 3.6 mg/dL (2.6-4.7) Glucose (Fingerstick) 189 mg/dL (70-99) Laboratory Tests Test 09/18/19 12:23 09/18/19 17:24 6/1/20 00:04 09/19/19 05:30 Glucose (Fingerstick) 225 mg/dL (70-99) 244 mg/dL (70-99) 175 mg/dL (70-99) White Blood Count 12.6 x10^3/uL (4.0-11.0) Red Blood Count 3.07 x10^6/uL (3.50-5.40) Hemoglobin 8.4 g/dL (12.0-15.5) Hematocrit 26.7 % (36.0-47.0) Mean Corpuscular Volume 87 fL (79-100) Mean Corpuscular Hemoglobin 27 pg (25-35) Mean Corpuscular Hemoglobin Concent 31 g/dL (31-37) Red Cell Distribution Width 19.3 % (11.5-14.5) Platelet Count 554 x10^3/uL (140-400) Neutrophils (%) (Auto) 68 % (31-73) Lymphocytes (%) (Auto) 20 % (24-48) Monocytes (%) (Auto) 10 % (0-9) Eosinophils (%) (Auto) 1 % (0-3) Basophils (%) (Auto) 0 % (0-3) Neutrophils # (Auto) 8.6 x10^3/uL (1.8-7.7) Lymphocytes # (Auto) 2.6 x10^3/uL (1.0-4.8) Monocytes # (Auto) 1.3 x10^3/uL (0.0-1.1) Eosinophils # (Auto) 0.1 x10^3/uL (0.0-0.7) Basophils # (Auto) 0.0 x10^3/uL (0.0-0.2) Sodium Level 145 mmol/L (136-145) Potassium Level 3.2 mmol/L (3.5-5.1) Chloride Level 106 mmol/L (98-107) Carbon Dioxide Level 29 mmol/L (21-32) Anion Gap 10 (6-14) Blood Urea Nitrogen 34 mg/dL (7-20) Creatinine 1.1 mg/dL (0.6-1.0) Estimated GFR (Cockcroft-Gault) 52.8 Glucose Level 188 mg/dL (70-99) Calcium Level 9.9 mg/dL (8.5-10.1) Phosphorus Level 3.6 mg/dL (2.6-4.7) Test 09/19/19 05:48 Glucose (Fingerstick) 189 mg/dL (70-99) Microbiology 09/17/19 Gram Stain - Final, Resulted 09/17/19 Aerobic Culture - Preliminary, Resulted 09/04/19 Blood Culture - Final, Complete NO GROWTH AFTER 5 DAYS 08/24/19 Fungal Culture - Final, Complete 08/24/19 Fungal Culture Result 1 - Final, Complete 07/31/19 Urine Culture - Final, Complete 07/31/19 Urine Culture Result 1 (ALEXANDRA) - Final, Complete Medications Current Medications Sodium Chloride 1,000 ml @ 1,000 mls/hr Q1H IV Last administered on 07/04/19at 03:00; Start 07/04/19 at 03:00; Stop 07/04/19 at 03:59; Status DC Ondansetron HCl (Zofran) 4 mg 1X ONCE IVP Last administered on 07/04/19at 03:27; Start 07/04/19 at 03:00; Stop 07/04/19 at 03:01; Status DC Morphine Sulfate (Morphine Sulfate) 4 mg 1X ONCE IV ; Start 07/04/19 at 03:00; Stop 07/04/19 at 03:01; Status Cancel Ketorolac Tromethamine (Toradol 30mg Vial) 30 mg 1X ONCE IV Last administered on 07/04/19at 02:54; Start 07/04/19 at 03:00; Stop 07/04/19 at 03:01; Status DC Fentanyl Citrate (Fentanyl 2ml Vial) 25 mcg 1X ONCE IVP Last administered on 07/04/19at 03:23; Start 07/04/19 at 03:30; Stop 07/04/19 at 03:31; Status DC Fentanyl Citrate (Fentanyl 2ml Vial) 100 mcg STK-MED ONCE .ROUTE ; Start 07/04/19 at 03:18; Stop 07/04/19 at 03:18; Status DC Iohexol (Omnipaque 350 Mg/ml) 90 ml 1X ONCE IV Last administered on 07/04/19at 03:25; Start 07/04/19 at 03:30; Stop 07/04/19 at 03:31; Status DC Info (CONTRAST GIVEN -- Rx MONITORING) 1 each PRN DAILY PRN MC SEE COMMENTS; Start 07/04/19 at 03:30; Stop 07/06/19 at 03:29; Status DC Hydromorphone HCl (Dilaudid) 0.5 mg 1X ONCE IV Last administered on 07/04/19at 03:55; Start 07/04/19 at 04:30; Stop 07/04/19 at 04:32; Status DC Ondansetron HCl (Zofran) 4 mg PRN Q8HRS PRN IV NAUSEA/VOMITING 1ST CHOICE; Start 07/04/19 at 05:00; Stop 07/04/19 at 09:27; Status DC Morphine Sulfate (Morphine Sulfate) 2 mg PRN Q2HR PRN IV SEVERE PAIN 7-10 Last administered on 07/05/19at 12:26; Start 07/04/19 at 05:00; Stop 07/05/19 at 14:15; Status DC Sodium Chloride 1,000 ml @ 125 mls/hr Q8H IV Last administered on 07/04/19at 20:56; Start 07/04/19 at 05:00; Stop 07/05/19 at 04:59; Status DC Hydromorphone HCl (Dilaudid) 0.5 mg PRN Q3HRS PRN IV SEVERE PAIN 7-10 Last administered on 07/05/19at 10:06; Start 07/04/19 at 05:00; Stop 07/05/19 at 12:01; Status DC Piperacillin Sod/ Tazobactam Sod 4.5 gm/Sodium Chloride 100 ml @ 200 mls/hr 1X ONCE IV Last administered on 07/04/19at 05:44; Start 07/04/19 at 06:00; Stop 07/04/19 at 06:29; Status DC Ondansetron HCl (Zofran) 4 mg PRN Q4HRS PRN IV NAUSEA/VOMITING 1ST CHOICE Last administered on 09/17/19at 09:18; Start 07/04/19 at 09:30 Insulin Human Lispro (HumaLOG) 0-9 UNITS Q6HRS SQ Last administered on 09/19/19at 05:50; Start 07/04/19 at 09:30 Dextrose (Dextrose 50%-Water Syringe) 12.5 gm PRN Q15MIN PRN IV SEE COMMENTS; Start 07/04/19 at 09:30 Pantoprazole Sodium (PROTONIX VIAL for IV PUSH) 40 mg DAILYAC IVP Last administered on 09/19/19at 07:55; Start 07/04/19 at 11:30 Prochlorperazine Edisylate (Compazine) 10 mg PRN Q6HRS PRN IV NAUSEA/VOMITING, 2nd CHOICE Last administered on 09/17/19at 01:26; Start 07/04/19 at 17:45 Atenolol (Tenormin) 100 mg DAILY PO ; Start 07/05/19 at 09:00; Stop 07/04/19 at 20:08; Status DC Metoprolol Tartrate (Lopressor Vial) 2.5 mg Q6HRS IVP Last administered on 07/05/19at 05:51; Start 07/04/19 at 20:15; Stop 07/05/19 at 10:02; Status DC Metoprolol Tartrate (Lopressor Vial) 5 mg Q6HRS IVP Last administered on 07/14/19at 00:12; Start 07/05/19 at 10:15; Stop 07/16/19 at 08:48; Status DC Hydromorphone HCl (Dilaudid) 1 mg PRN Q3HRS PRN IV SEVERE PAIN 7-10 Last administered on 07/11/19at 05:13; Start 07/05/19 at 12:00; Stop 07/19/19 at 00:25; Status DC Lidocaine HCl (Buffered Lidocaine 1%) 3 ml STK-MED ONCE .ROUTE ; Start 07/05/19 at 12:55; Stop 07/05/19 at 12:56; Status DC Albumin Human 500 ml @ 125 mls/hr 1X ONCE IV Last administered on 07/05/19at 14:33; Start 07/05/19 at 14:30; Stop 07/05/19 at 18:32; Status DC Norepinephrine Bitartrate 8 mg/ Dextrose 258 ml @ 17.299 mls/ hr CONT PRN IV PER PROTOCOL Last administered on 08/02/19at 12:48; Start 07/05/19 at 15:30; Stop 08/05/19 at 09:19; Status DC Sodium Chloride 1,000 ml @ 125 mls/hr Q8H IV Last administered on 07/05/19at 21:04; Start 07/05/19 at 16:00; Stop 07/06/19 at 02:42; Status DC Albumin Human 500 ml @ 125 mls/hr PRN BID PRN IV After every 2L NSS & BP < 90mm Last administered on 07/20/19at 14:21; Start 07/05/19 at 16:00 Iohexol (Omnipaque 300 Mg/ml) 60 ml 1X ONCE IV Last administered on 07/05/19at 17:20; Start 07/05/19 at 17:00; Stop 07/05/19 at 17:01; Status DC Info (CONTRAST GIVEN -- Rx MONITORING) 1 each PRN DAILY PRN MC SEE COMMENTS; Start 07/05/19 at 17:00; Stop 07/07/19 at 16:59; Status DC Meropenem 1 gm/ Sodium Chloride 100 ml @ 200 mls/hr Q8HRS IV Last administered on 07/06/19at 05:45; Start 07/05/19 at 20:00; Stop 07/06/19 at 08:48; Status DC Furosemide (Lasix) 40 mg 1X ONCE IVP Last administered on 07/05/19at 22:12; Start 07/05/19 at 22:30; Stop 07/05/19 at 22:31; Status DC Calcium Chloride 1000 mg/Sodium Chloride 110 ml @ 220 mls/hr 1X ONCE IV Last administered on 07/05/19at 22:11; Start 07/05/19 at 22:30; Stop 07/05/19 at 22:59; Status DC Albuterol Sulfate (Ventolin Neb Soln) 2.5 mg 1X ONCE NEB Last administered on 07/06/19at 00:56; Start 07/05/19 at 22:30; Stop 07/05/19 at 22:31; Status DC Insulin Human Regular (HumuLIN R VIAL) 5 unit 1X ONCE IV Last administered on 07/05/19at 22:14; Start 07/05/19 at 22:30; Stop 07/05/19 at 22:31; Status DC Magnesium Sulfate 50 ml @ 25 mls/hr 1X ONCE IV Last administered on 07/06/19at 02:57; Start 07/06/19 at 03:00; Stop 07/06/19 at 04:59; Status DC Calcium Gluconate 1000 mg/Sodium Chloride 110 ml @ 220 mls/hr 1X ONCE IV Last administered on 07/06/19at 02:46; Start 07/06/19 at 03:00; Stop 07/06/19 at 03:2 9; Status DC Sodium Chloride 1,000 ml @ 200 mls/hr Q5H IV Last administered on 07/06/19at 02:46; Start 07/06/19 at 03:00; Stop 07/06/19 at 10:21; Status DC Calcium Gluconate 1000 mg/Sodium Chloride 110 ml @ 220 mls/hr 1X ONCE IV Last administered on 07/06/19at 03:21; Start 07/06/19 at 03:30; Stop 07/06/19 at 03:59; Status DC Sodium Bicarbonate 50 meq/Sodium Chloride 1,050 ml @ 75 mls/hr Q14H IV Last administered on 07/10/19at 21:10; Start 07/06/19 at 07:30; Stop 07/11/19 at 10:28; Status DC Calcium Gluconate 2000 mg/Sodium Chloride 120 ml @ 220 mls/hr 1X ONCE IV Last administered on 07/06/19at 09:05; Start 07/06/19 at 07:30; Stop 07/06/19 at 08:02; Status DC Lidocaine HCl (Xylocaine-Mpf 1% 2ml Vial) 2 ml STK-MED ONCE .ROUTE ; Start 07/06/19 at 08:47; Stop 07/06/19 at 08:47; Status DC Meropenem 500 mg/ Sodium Chloride 50 ml @ 100 mls/hr Q12HR IV Last administered on 07/11/19at 21:01; Start 07/06/19 at 18:00; Stop 07/12/19 at 07:58; Status DC Lidocaine HCl (Buffered Lidocaine 1%) 3 ml STK-MED ONCE .ROUTE ; Start 07/06/19 at 09:46; Stop 07/06/19 at 09:46; Status DC Lidocaine HCl (Buffered Lidocaine 1%) 6 ml 1X ONCE INJ Last administered on 07/06/19at 10:26; Start 07/06/19 at 10:15; Stop 07/06/19 at 10:16; Status DC Info (Tpn Per Pharmacy) 1 each PRN DAILY PRN MC SEE COMMENTS Last administered on 09/18/19at 12:28; Start 07/06/19 at 12:00 Sodium Chloride 1,000 ml @ 1,000 mls/hr Q1H PRN IV hypotension; Start 07/06/19 at 12:07; Stop 07/06/19 at 18:06; Status DC Diphenhydramine HCl (Benadryl) 25 mg 1X PRN PRN IV ITCHING; Start 07/06/19 at 12:15; Stop 07/07/19 at 12:14; Status DC Diphenhydramine HCl (Benadryl) 25 mg 1X PRN PRN IV ITCHING; Start 07/06/19 at 12:15; Stop 07/07/19 at 12:14; Status DC Sodium Chloride 1,000 ml @ 400 mls/hr Q2H30M PRN IV PATENCY; Start 07/06/19 at 12:07; Stop 07/07/19 at 00:06; Status DC Info (PHARMACY MONITORING -- do not chart) 1 each PRN DAILY PRN MC SEE COMMENTS; Start 07/06/19 at 12:15; Stop 07/08/19 at 08:13; Status DC Sodium Chloride 90 meq/Calcium Gluconate 10 meq/ Multivitamins 10 ml/Chromium/ Copper/Manganese/ Seleni/Zn 1 ml/ Total Parenteral Nutrition/Amino Acids/Dextrose/ Fat Emulsion Intravenous 55.005 ml @ 2.292 mls/hr TPN CONT IV ; Start 07/06/19 at 22:00; Stop 07/06/19 at 12:33; Status DC Info (Tpn Per Pharmacy) 1 each PRN DAILY PRN MC SEE COMMENTS; Start 07/06/19 at 12:30; Status UNV Sodium Chloride 90 meq/Calcium Gluconate 10 meq/ Multivitamins 10 ml/Chromium/ Copper/Manganese/ Seleni/Zn 0.5 ml/ Total Parenteral Nutrition/Amino Acids/Dextrose/ Fat Emulsion Intravenous 1,512 ml @ 63 mls/hr TPN CONT IV Last administered on 07/06/19at 22:06; Start 07/06/19 at 22:00; Stop 07/07/19 at 21:59; Status DC Calcium Carbonate/ Glycine (Tums) 500 mg PRN AFTMEALHC PRN PO INDIGESTION; Start 07/06/19 at 17:45; Stop 08/31/19 at 10:25; Status DC Calcium Gluconate (Calcium Gluconate) 2,000 mg 1X ONCE IVP Last administered on 07/07/19at 02:19; Start 07/07/19 at 02:15; Stop 07/07/19 at 02:16; Status DC Calcium Chloride 3000 mg/Sodium Chloride 1,030 ml @ 50 mls/hr [id number] IV Last administered on 07/09/19at 02:17; Start 07/07/19 at 08:00; Stop 07/09/19 at 15:23; Status DC Lorazepam (Ativan Inj) 1 mg PRN Q4HRS PRN IVP ANXIETY / AGITATION, 2nd choic Last administered on 08/05/19at 03:51; Start 07/07/19 at 09:00; Stop 08/05/19 at 09:19; Status DC Sodium Chloride 1,000 ml @ 1,000 mls/hr Q1H PRN IV hypotension; Start 07/07/19 at 08:56; Stop 07/07/19 at 14:55; Status DC Albumin Human 200 ml @ 200 mls/hr 1X PRN PRN IV Hypotension; Start 07/07/19 at 09:00; Stop 07/07/19 at 14:59; Status DC Diphenhydramine HCl (Benadryl) 25 mg 1X PRN PRN IV ITCHING; Start 07/07/19 at 09:00; Stop 07/08/19 at 08:59; Status DC Diphenhydramine HCl (Benadryl) 25 mg 1X PRN PRN IV ITCHING; Start 07/07/19 at 09:00; Stop 07/08/19 at 08:59; Status DC Sodium Chloride 1,000 ml @ 400 mls/hr Q2H30M PRN IV PATENCY; Start 07/07/19 at 08:56; Stop 07/07/19 at 20:55; Status DC Info (PHARMACY MONITORING -- do not chart) 1 each PRN DAILY PRN MC SEE COMMENTS; Start 07/07/19 at 09:00; Status UNV Info (PHARMACY MONITORING -- do not chart) 1 each PRN DAILY PRN MC SEE COMMENTS; Start 07/07/19 at 09:00; Stop 07/08/19 at 08:13; Status DC Digoxin (Lanoxin) 500 mcg 1X ONCE IV Last administered on 07/07/19at 10:04; Start 07/07/19 at 10:00; Stop 07/07/19 at 10:01; Status DC Digoxin (Lanoxin) 125 mcg 1X ONCE IV Last administered on 07/07/19at 17:10; Start 07/07/19 at 18:00; Stop 07/07/19 at 18:01; Status DC Magnesium Sulfate 100 ml @ 25 mls/hr 1X ONCE IV Last administered on 07/07/19at 12:48; Start 07/07/19 at 13:00; Stop 07/07/19 at 16:59; Status DC Sodium Chloride 90 meq/Magnesium Sulfate 10 meq/ Calcium Gluconate 20 meq/ Multivitamins 10 ml/Chromium/ Copper/Manganese/ Seleni/Zn 0.5 ml/ Total Parenteral Nutrition/Amino Acids/Dextrose/ Fat Emulsion Intravenous 1,512 ml @ 63 mls/hr TPN CONT IV Last administered on 07/07/19at 22:25; Start 07/07/19 at 22:00; Stop 07/08/19 at 21:59; Status DC Sodium Chloride 1,000 ml @ 1,000 mls/hr Q1H PRN IV hypotension; Start 07/08/19 at 08:05; Stop 07/08/19 at 14:04; Status DC Albumin Human 200 ml @ 200 mls/hr 1X ONCE IV Last administered on 07/08/19at 08:57; Start 07/08/19 at 08:15; Stop 07/08/19 at 09:14; Status DC Diphenhydramine HCl (Benadryl) 25 mg 1X PRN PRN IV ITCHING; Start 07/08/19 at 08:15; Stop 07/09/19 at 08:14; Status DC Diphenhydramine HCl (Benadryl) 25 mg 1X PRN PRN IV ITCHING; Start 07/08/19 at 08:15; Stop 07/09/19 at 08:14; Status DC Sodium Chloride 1,000 ml @ 400 mls/hr Q2H30M PRN IV PATENCY; Start 07/08/19 at 08:05; Stop 07/08/19 at 20:04; Status DC Info (PHARMACY MONITORING -- do not chart) 1 each PRN DAILY PRN MC SEE COMMENTS; Start 07/08/19 at 08:15; Stop 07/12/19 at 07:57; Status DC Sodium Chloride 90 meq/Potassium Chloride 15 meq/ Potassium Phosphate 10 mmol/ Magnesium Sulfate 10 meq/Calcium Gluconate 20 meq/ Multivitamins 10 ml/Chromium/ Copper/Manganese/ Seleni/Zn 0.5 ml/ Total Parenteral Nutrition/Amino Acids/ Dextrose/ Fat Emulsion Intravenous 1,512 ml @ 63 mls/hr TPN CONT IV Last administered on 07/08/19at 21:01; Start 07/08/19 at 22:00; Stop 07/09/19 at 21:59; Status DC Potassium Chloride/Water 100 ml @ 100 mls/hr 1X ONCE IV Last administered on 07/08/19at 14:09; Start 07/08/19 at 14:00; Stop 07/08/19 at 14:59; Status DC Benzocaine (Hurricaine One) 1 spray 1X ONCE MM Last administered on 07/08/19at 16:38; Start 07/08/19 at 14:30; Stop 07/08/19 at 14:31; Status DC Lidocaine HCl (Glydo (Lidocaine) Jelly) 1 ramu 1X ONCE MM Last administered on 07/08/19at 16:38; Start 07/08/19 at 14:30; Stop 07/08/19 at 14:31; Status DC Linezolid/Dextrose 300 ml @ 300 mls/hr Q12HR IV Last administered on 07/14/19at 21:04; Start 07/08/19 at 20:00; Stop 07/15/19 at 07:50; Status DC Acetaminophen (Tylenol) 650 mg PRN Q6HRS PRN PO MILD PAIN / TEMP; Start 07/09/19 at 03:30; Stop 07/09/19 at 03:36; Status DC Acetaminophen (Tylenol) 650 mg PRN Q6HRS PRN PEG MILD PAIN / TEMP Last administered on 08/04/19at 19:56; Start 07/09/19 at 03:36; Stop 08/31/19 at 10:25; Status DC Sodium Chloride 1,000 ml @ 1,000 mls/hr Q1H PRN IV hypotension; Start 07/09/19 at 07:50; Stop 07/09/19 at 13:49; Status DC Albumin Human 200 ml @ 200 mls/hr 1X PRN PRN IV Hypotension; Start 07/09/19 at 08:00; Stop 07/09/19 at 13:59; Status DC Sodium Chloride (Normal Saline Flush) 10 ml 1X PRN PRN IV AP catheter pack; Start 07/09/19 at 08:00; Stop 07/10/19 at 07:59; Status DC Sodium Chloride (Normal Saline Flush) 10 ml 1X PRN PRN IV ROT[employer]PERATOR catheter pack; Start 07/09/19 at 08:00; Stop 07/10/19 at 07:59; Status DC Sodium Chloride 1,000 ml @ 400 mls/hr Q2H30M PRN IV PATENCY; Start 07/09/19 at 07:50; Stop 07/09/19 at 19:49; Status DC Info (PHARMACY MONITORING -- do not chart) 1 each PRN DAILY PRN MC SEE PIPE TS; Start 07/09/19 at 08:00; Status UNV Info (PHARMACY MONITORING -- do not chart) 1 each PRN DAILY PRN MC SEE COMMENTS; Start 07/09/19 at 08:00; Stop 07/11/19 at 08:25; Status DC Sodium Chloride 90 meq/Potassium Chloride 15 meq/ Potassium Phosphate 10 mmol/ Magnesium Sulfate 10 meq/Calcium Gluconate 20 meq/ Multivitamins 10 ml/Chromium/ Copper/Manganese/ Seleni/Zn 0.5 ml/ Total Parenteral Nutrition/Amino Acids/Dextrose/ Fat Emulsion Intravenous 1,512 ml @ 63 mls/hr TPN CONT IV Last administered on 07/09/19at 20:57; Start 07/09/19 at 22:00; Stop 07/10/19 at 21:59; Status DC Sodium Chloride 90 meq/Potassium Chloride 15 meq/ Potassium Phosphate 15 mmol/ Magnesium Sulfate 10 meq/Calcium Gluconate 20 meq/ Multivitamins 10 ml/Chromium/ Copper/Manganese/ Seleni/Zn 0.5 ml/ Total Parenteral Nutrition/Amino Acids/Dextrose/ Fat Emulsion Intravenous 1,512 ml @ 63 mls/hr TPN CONT IV ; S tart 07/10/19 at 22:00; Stop 07/10/19 at 14:16; Status DC Sodium Chloride 90 meq/Potassium Chloride 15 meq/ Potassium Phosphate 15 mmol/ Magnesium Sulfate 10 meq/Calcium Gluconate 20 meq/ Multivitamins 10 ml/Chromium/ Copper/Manganese/ Seleni/Zn 0.5 ml/ Total Parenteral Nutrition/Amino Acids/Dextrose/ Fat Emulsion Intravenous 1,200 ml @ 50 mls/hr TPN CONT IV ; Start 07/10/19 at 22:00; Stop 07/10/19 at 14:17; Status DC Sodium Chloride 90 meq/Potassium Chloride 15 meq/ Potassium Phosphate 10 mmol/ Magnesium Sulfate 10 meq/Calcium Gluconate 20 meq/ Multivitamins 10 ml/Chromium/ Copper/Manganese/ Seleni/Zn 0.5 ml/ Total Parenteral Nutrition/Amino Acids/Dextrose/ Fat Emulsion Intravenous 1,200 ml @ 50 mls/hr TPN CONT IV Last administered on 07/10/19at 23:29; Start 07/10/19 at 22:00; Stop 07/11/19 at 21:59; Status DC Sodium Chloride 1,000 ml @ 1,000 mls/hr Q1H PRN IV hypotension; Start 07/11/19 at 07:28; Stop 07/11/19 at 13:27; Status DC Albumin Human 200 ml @ 200 mls/hr 1X ONCE IV Last administered on 07/11/19at 08:51; Start 07/11/19 at 07:30; Stop 07/11/19 at 08:29; Status DC Diphenhydramine HCl (Benadryl) 25 mg 1X PRN PRN IV ITCHING; Start 07/11/19 at 07:30; Stop 07/12/19 at 07:29; Status DC Diphenhydramine HCl (Benadryl) 25 mg 1X PRN PRN IV ITCHING; Start 07/11/19 at 07:30; Stop 07/12/19 at 07:29; Status DC Sodium Chloride 1,000 ml @ 400 mls/hr Q2H30M PRN IV PATENCY; Start 07/11/19 at 07:28; Stop 07/11/19 at 19:27; Status DC Info (PHARMACY MONITORING -- do not chart) 1 each PRN DAILY PRN MC SEE COMMENTS; Start 07/11/19 at 07:30; Stop 07/22/19 at 13:01; Status DC Metronidazole 100 ml @ 100 mls/hr Q6HRS IV Last administered on 07/27/19at 06:26; Start 07/11/19 at 08:30; Stop 07/27/19 at 09:58; Status DC Micafungin Sodium 100 mg/Dextrose 100 ml @ 100 mls/hr Q24H IV Last administered on 08/18/19at 08:18; Start 07/11/19 at 09:00; Stop 08/18/19 at 20:58; Status DC Propofol 0 ml @ As Directed STK-MED ONCE IV ; Start 07/11/19 at 07:53; Stop 07/11/19 at 07:53; Status DC Etomidate (Amidate) 20 mg STK-MED ONCE IV ; Start 07/11/19 at 07:53; Stop 07/11/19 at 07:54; Status DC Midazolam HCl (Versed) 5 mg STK-MED ONCE .ROUTE ; Start 07/11/19 at 07:57; Stop 07/11/19 at 07:57; Status DC Fentanyl Citrate 30 ml @ 0 mls/hr CONT PRN IV SEE PROTOCOL Last administered on 08/05/19at 06:12; Start 07/11/19 at 08:15; Stop 08/05/19 at 09:19; Status DC Artificial Tears (Artificial Tears) 1 drop PRN Q1HR PRN OU DRY EYE, 1st choice; Start 07/11/19 at 08:15; Stop 08/17/19 at 05:31; Status DC Midazolam HCl 50 mg/Sodium Chloride 50 ml @ 0 mls/hr CONT PRN IV SEE PROTOCOL Last administered on 07/14/19at 22:39; Start 07/11/19 at 08:15; Stop 07/16/19 at 15:59; Status DC Etomidate (Amidate) 8 mg 1X ONCE IV Last administered on 07/11/19at 08:33; Start 07/11/19 at 08:30; Stop 07/11/19 at 08:31; Status DC Succinylcholine Chloride (Anectine) 120 mg 1X ONCE IV Last administered on 07/11/19at 08:34; Start 07/11/19 at 08:30; Stop 07/11/19 at 08:31; Status DC Midazolam HCl (Versed) 5 mg 1X ONCE IV ; Start 07/11/19 at 08:30; Stop 07/11/19 at 08:31; Status DC Potassium Chloride 15 meq/ Bicarbonate Dialysis Soln w/ out KCl 5,007.5 ml @ 1,000 mls/ hr Q5H1M IV Last administered on 07/12/19at 11:11; Start 07/11/19 at 12:00; Stop 07/12/19 at 11:15; Status DC Potassium Chloride 15 meq/ Bicarbonate Dialysis Soln w/ out KCl 5,007.5 ml @ 1,000 mls/ hr Q5H1M IV Last administered on 07/12/19at 11:12; Start 07/11/19 at 12:00; Stop 07/12/19 at 11:17; Status DC Potassium Chloride 15 meq/ Bicarbonate Dialysis Soln w/ out KCl 5,007.5 ml @ 1,000 mls/ hr Q5H1M IV Last administered on 07/12/19at 11:11; Start 07/11/19 at 12:00; Stop 07/12/19 at 11:19; Status DC Sodium Chloride 90 meq/Potassium Chloride 15 meq/ Potassium Phosphate 10 mmol/ Magnesium Sulfate 10 meq/Calcium Gluconate 20 meq/ Multivitamins 10 ml/Chromium/ Copper/Manganese/ Seleni/Zn 0.5 ml/ Total Parenteral Nutrition/Amino Acids/Dextrose/ Fat Emulsion Intravenous 1,400 ml @ 58.333 mls/ hr TPN CONT IV Last administered on 07/11/19at 21:42; Start 07/11/19 at 22:00; Stop 07/12/19 at 21:59; Status DC Heparin Sodium (Porcine) (Heparin Sodium) 5,000 unit Q8HRS SQ Last administered on 07/16/19at 05:55; Start 07/11/19 at 15:00; Stop 07/16/19 at 13:28; Status DC Meropenem 500 mg/ Sodium Chloride 50 ml @ 100 mls/hr Q6HRS IV Last administered on 07/13/19at 06:00; Start 07/12/19 at 09:00; Stop 07/13/19 at 07:29; Status DC Potassium Phosphate 20 mmol/ Sodium Chloride 106.6667 ml @ 51.667 m... 1X ONCE IV Last administered on 07/12/19at 11:22; Start 07/12/19 at 10:15; Stop 07/12/19 at 12:18; Status DC Acetaminophen (Tylenol Supp) 650 mg PRN Q6HRS PRN MS MILD PAIN / TEMP > 100.3'F Last administered on 08/23/19at 09:12; Start 07/12/19 at 10:30 Potassium Chloride/Water 100 ml @ 100 mls/hr Q1H IV Last administered on 07/12/19at 12:12; Start 07/12/19 at 11:00; Stop 07/12/19 at 12:59; Status DC Potassium Chloride 20 meq/ Bicarbonate Dialysis Soln w/ out KCl 5,010 ml @ 1,000 mls/hr Q5H1M IV Last administered on 07/13/19at 08:48; Start 07/12/19 at 12:00; Stop 07/13/19 at 13:03; Status DC Potassium Chloride 20 meq/ Bicarbonate Dialysis Soln w/ out KCl 5,010 ml @ 1,000 mls/hr Q5H1M IV Last administered on 07/17/19at 14:52; Start 07/12/19 at 11:30; Stop 07/17/19 at 19:59; Status DC Potassium Chloride 20 meq/ Bicarbonate Dialysis Soln w/ out KCl 5,010 ml @ 1 ,000 mls/hr Q5H1M IV Last administered on 07/17/19at 14:53; Start 07/12/19 at 11:30; Stop 07/17/19 at 19:59; Status DC Sodium Chloride 90 meq/Potassium Chloride 15 meq/ Potassium Phosphate 15 mmol/ Magnesium Sulfate 10 meq/Calcium Gluconate 15 meq/ Multivitamins 10 ml/Chromium/ Copper/Manganese/ Seleni/Zn 0.5 ml/ Total Parenteral Nutrition/Amino Acids/Dextrose/ Fat Emulsion Intravenous 1,400 ml @ 58.333 mls/ hr TPN CONT IV Last administered on 07/12/19at 22:17; Start 07/12/19 at 22:00; Stop 07/13/19 at 21:59; Status DC Cefepime HCl (Maxipime) 2 gm Q12HR IVP Last administered on 07/26/19at 20:56; Start 07/13/19 at 09:00; Stop 07/27/19 at 09:58; Status DC Daptomycin 500 mg/ Sodium Chloride 50 ml @ 100 mls/hr Q48H IV Last administered on 07/29/19at 09:57; Start 07/13/19 at 08:30; Stop 07/29/19 at 10:07; Status DC Lidocaine HCl (Buffered Lidocaine 1%) 3 ml 1X ONCE INJ Last administered on 07/13/19at 10:27; Start 07/13/19 at 10:30; Stop 07/13/19 at 10:31; Status DC Potassium Phosphate 20 mmol/ Sodium Chloride 106.6667 ml @ 51.667 m... 1X ONCE IV Last administered on 07/13/19at 12:51; Start 07/13/19 at 13:00; Stop 07/13/19 at 15:03; Status DC Sodium Chloride 90 meq/Potassium Chloride 15 meq/ Potassium Phosphate 18 mmol/ Magnesium Sulfate 8 meq/Calcium Gluconate 15 meq/ Multivitamins 10 ml/Chromium/ Copper/Manganese/ Seleni/Zn 0.5 ml/ Total Parenteral Nutrition/Amino Acids/Dextrose/ Fat Emulsion Intravenous 1,400 ml @ 58.333 mls/ hr TPN CONT IV Last administered on 07/13/19at 22:16; Start 07/13/19 at 22:00; Stop 07/14/19 at 21:59; Status DC Potassium Chloride 20 meq/ Bicarbonate Dialysis Soln w/ out KCl 5,010 ml @ 1,000 mls/hr Q5H1M IV Last administered on 07/17/19at 14:54; Start 07/13/19 at 16:00; Stop 07/17/19 at 19:59; Status DC Multi-Ingred Cream/Lotion/Oil/ Oint (Artificial Tears Eye Ointment) 1 ramu PRN Q1HR PRN OU DRY EYE, 2nd choice Last administered on 08/01/19at 08:19; Start 07/13/19 at 17:30 Sodium Chloride 90 meq/Potassium Chloride 15 meq/ Potassium Phosphate 18 mmol/ Magnesium Sulfate 8 meq/Calcium Gluconate 15 meq/ Multivitamins 10 ml/Chromium/ Copper/Manganese/ Seleni/Zn 0.5 ml/ Total Parenteral Nutrition/Amino Acids /Dextrose/ Fat Emulsion Intravenous 1,400 ml @ 58.333 mls/ hr TPN CONT IV Last administered on 07/14/19at 22:00; Start 07/14/19 at 22:00; Stop 07/15/19 at 21:59; Status DC Albumin Human 500 ml @ 125 mls/hr 1X ONCE IV ; Start 07/14/19 at 14:15; Stop 07/14/19 at 18:14; Status DC Sodium Chloride 90 meq/Potassium Chloride 15 meq/ Potassium Phosphate 18 mmol/ Magnesium Sulfate 8 meq/Calcium Gluconate 15 meq/ Multivitamins 10 ml/Chromium/ Copper/Manganese/ Seleni/Zn 0.5 ml/ Insulin Human Regular 10 unit/ Total Parenteral Nutrition/Amino Acids/Dextrose/ Fat Emulsion Intravenous 1,400 ml @ 58.333 mls/ hr TPN CONT IV Last administered on 07/15/19at 21:43; Start 07/15/19 at 22:00; Stop 07/16/19 at 21:59; Status DC Lidocaine HCl (Buffered Lidocaine 1%) 3 ml STK-MED ONCE .ROUTE ; Start 07/13/19 at 10:00; Stop 07/15/19 at 13:57; Status DC Midazolam HCl 100 mg/Sodium Chloride 100 ml @ 7 mls/hr CONT PRN IV SEE PROTOCOL Last administered on 07/27/19at 15:35; Start 07/16/19 at 16:00 Sodium Chloride 90 meq/Potassium Chloride 15 meq/ Potassium Phosphate 18 mmol/ Magnesium Sulfate 8 meq/Calcium Gluconate 15 meq/ Multivitamins 10 ml/Chromium/ Copper/Manganese/ Seleni/Zn 0.5 ml/ Insulin Human Regular 15 unit/ Total Parenteral Nutrition/Amino Acids/Dextrose/ Fat Emulsion Intravenous 1,400 ml @ 58.333 mls/ hr TPN CONT IV Last administered on 07/16/19at 20:34; Start 07/16/19 at 22:00; Stop 07/17/19 at 21:59; Status DC Info (Icu Electrolyte Protocol) 1 ea CONT PRN PRN MC PER PROTOCOL; Start 07/17/19 at 13:15 Sodium Chloride 90 meq/Potassium Chloride 15 meq/ Potassium Phosphate 18 mmol/ Magnesium Sulfate 8 meq/Calcium Gluconate 15 meq/ Multivitamins 10 ml/Chromium/ Copper/Manganese/ Seleni/Zn 0.5 ml/ Insulin Human Regular 15 unit/ Total Parenteral Nutrition/Amino Acids/Dextrose/ Fat Emulsion Intravenous 1,400 ml @ 58.333 mls/ hr TPN CONT IV Last administered on 07/17/19at 22:05; Start 07/17/19 at 22:00; Stop 07/18/19 at 21:59; Status DC Potassium Chloride 15 meq/ Bicarbonate Dialysis Soln w/ out KCl 5,007.5 ml @ 1,000 mls/ hr Q5H1M IV Last administered on 07/20/19at 18:14; Start 07/17/19 at 20:00; Stop 07/21/19 at 13:08; Status DC Potassium Chloride 15 meq/ Bicarbonate Dialysis Soln w/ out KCl 5,007.5 ml @ 1,000 mls/ hr Q5H1M IV Last administered on 07/20/19at 18:14; Start 07/17/19 at 20:00; Stop 07/21/19 at 13:08; Status DC Potassium Chloride 15 meq/ Bicarbonate Dialysis Soln w/ out KCl 5,007.5 ml @ 1,000 mls/ hr Q5H1M IV Last administered on 07/20/19at 18:14; Start 07/17/19 at 20:00; Stop 07/21/19 at 13:08; Status DC Iohexol (Omnipaque 240 Mg/ml) 30 ml 1X ONCE PO Last administered on 07/18/19at 11:30; Start 07/18/19 at 11:30; Stop 07/18/19 at 11:33; Status DC Info (CONTRAST GIVEN -- Rx MONITORING) 1 each PRN DAILY PRN MC SEE COMMENTS; Start 07/18/19 at 11:45; Stop 07/20/19 at 11:44; Status DC Sodium Chloride 90 meq/Potassium Chloride 15 meq/ Potassium Phosphate 18 mmol/ Magnesium Sulfate 8 meq/Calcium Gluconate 15 meq/ Multivitamins 10 ml/Chromium/ Copper/Manganese/ Seleni/Zn 0.5 ml/ Insulin Human Regular 15 unit/ Total Pa renteral Nutrition/Amino Acids/Dextrose/ Fat Emulsion Intravenous 1,400 ml @ 58.333 mls/ hr TPN CONT IV Last administered on 07/18/19at 21:47; Start 07/18/19 at 22:00; Stop 07/19/19 at 21:59; Status DC Sodium Chloride 90 meq/Potassium Chloride 15 meq/ Potassium Phosphate 18 mmol/ Magnesium Sulfate 8 meq/Calcium Gluconate 15 meq/ Multivitamins 10 ml/Chromium/ Copper/Manganese/ Seleni/Zn 0.5 ml/ Insulin Human Regular 20 unit/ Total Parenteral Nutrition/Amino Acids/Dextrose/ Fat Emulsion Intravenous 1,400 ml @ 58.333 mls/ hr TPN CONT IV Last administered on 07/19/19at 21:36; Start 07/19/19 at 22:00; Stop 07/20/19 at 21:59; Status DC Alteplase, Recombinant (Cathflo For Central Catheter Clearance) 1 mg 1X ONCE INT CAT Last administered on 07/19/19at 20:03; Start 07/19/19 at 19:30; Stop 07/19/19 at 19:46; Status DC Alteplase, Recombinant (Cathflo For Central Catheter Clearance) 1 mg 1X ONCE INT CAT Last administered on 07/19/19at 22:05; Start 07/19/19 at 22:00; Stop 07/19/19 at 22:01; Status DC Sodium Chloride 90 meq/Potassium Chloride 15 meq/ Potassium Phosphate 18 mmol/ Magnesium Sulfate 8 meq/Calcium Gluconate 15 meq/ Multivitamins 10 ml/Chromium/ Copper/Manganese/ Seleni/Zn 0.5 ml/ Insulin Human Regular 20 unit/ Total Parenteral Nutrition/Amino Acids/Dextrose/ Fat Emulsion Intravenous 1,400 ml @ 58.333 mls/ hr TPN CONT IV Last administered on 07/20/19at 21:30; Start 07/20/19 at 22:00; Stop 07/21/19 at 21:59; Status DC Dexmedetomidine HCl 400 mcg/ Sodium Chloride 100 ml @ 0 mls/hr CONT PRN IV ANXIETY / AGITATION Last administered on 09/17/19at 12:57; Start 07/21/19 at 08:15; Stop 09/17/19 at 18:31; Status DC Sodium Chloride 500 ml @ 500 mls/hr 1X PRN PRN IV ELEVATED BP, SEE COMMENTS; Start 07/21/19 at 08:15 Atropine Sulfate (ATROPINE 0.5mg SYRINGE) 0.5 mg PRN Q5MIN PRN IV SEE COMMENTS; Start 07/21/19 at 08:15 Furosemide (Lasix) 20 mg 1X ONCE IVP Last administered on 07/21/19at 08:19; Start 07/21/19 at 08:15; Stop 07/21/19 at 08:16; Status DC Lidocaine HCl (Buffered Lidocaine 1%) 3 ml STK-MED ONCE .ROUTE ; Start 07/21/19 at 08:39; Stop 07/21/19 at 08:39; Status DC Lidocaine HCl (Buffered Lidocaine 1%) 6 ml 1X ONCE INJ Last administered on 07/21/19at 09:05; Start 07/21/19 at 09:00; Stop 07/21/19 at 09:06; Status DC Sodium Chloride 90 meq/Potassium Chloride 15 meq/ Potassium Phosphate 18 mmol/ Magnesium Sulfate 8 meq/Calcium Gluconate 15 meq/ Multivitamins 10 ml/Chromium/ Copper/Manganese/ Seleni/Zn 0.5 ml/ Insulin Human Regular 20 unit/ Total Parenteral Nutrition/Amino Acids/Dextrose/ Fat Emulsion Intravenous 1,400 ml @ 58.333 mls/ hr TPN CONT IV Last administered on 07/21/19at 22:45; Start 07/21/19 at 22:00; Stop 07/22/19 at 21:59; Status DC Sodium Chloride 1,000 ml @ 1,000 mls/hr Q1H PRN IV hypotension; Start 07/22/19 at 07:30; Stop 07/22/19 at 13:29; Status DC Albumin Human 200 ml @ 200 mls/hr 1X PRN PRN IV Hypotension Last administered on 07/22/19at 09:36; Start 07/22/19 at 07:30; Stop 07/22/19 at 13:29; Status DC Sodium Chloride (Normal Saline Flush) 10 ml 1X PRN PRN IV AP catheter pack; Start 07/22/19 at 07:30; Stop 07/22/19 at 21:29; Status DC Sodium Chloride (Normal Saline Flush) 10 ml 1X PRN PRN IV ROTARY PUMP OPERATOR catheter pack; Start 07/22/19 at 07:30; Stop 07/23/19 at 07:29; Status DC Sodium Chloride 1,000 ml @ 400 mls/hr Q2H30M PRN IV PATENCY; Start 07/22/19 at 07:30; Stop 07/22/19 at 19:29; Status DC Info (PHARMACY MONITORING -- do not chart) 1 each PRN DAILY PRN MC SEE COMMENTS; Start 07/22/19 at 07:30; Stop 07/22/19 at 13:02; Status DC Info (PHARMACY MONITORING -- do not chart) 1 each PRN DAILY PRN MC SEE COMMENTS; Start 07/22/19 at 07:30; Stop 07/24/19 at 12:45; Status DC Sodium Chloride 90 meq/Potassium Chloride 15 meq/ Potassium Phosphate 10 mmol/ Magnesium Sulfate 8 meq/Calcium Gluconate 15 meq/ Multivitamins 10 ml/Chromium/ Copper/Manganese/ Seleni/Zn 0.5 ml/ Insulin Human Regular 25 unit/ Total Parenteral Nutrition/Amino Acids/Dextrose/ Fat Emulsion Intravenous 1,400 ml @ 58.333 mls/ hr TPN CONT IV Last administered on 07/22/19at 22:19; Start 07/22/19 at 22:00; Stop 07/23/19 at 21:59; Status DC Heparin Sodium (Porcine) (Heparin Sodium) 5,000 unit Q12HR SQ Last administered on 08/14/19at 08:59; Start 07/22/19 at 21:00; Stop 08/14/19 at 10:05; Status DC Ondansetron HCl (Zofran) 4 mg PRN Q6HRS PRN IV NAUSEA/VOMITING; Start 07/25/19 at 07:00; Stop 07/26/19 at 06:59; Status DC Fentanyl Citrate (Fentanyl 2ml Vial) 25 mcg PRN Q5MIN PRN IV MILD PAIN 1-3; Start 07/25/19 at 07:00; Stop 07/26/19 at 06:59; Status DC Fentanyl Citrate (Fentanyl 2ml Vial) 50 mcg PRN Q5MIN PRN IV MODERATE TO SEVERE PAIN; Start 07/25/19 at 07:00; Stop 07/26/19 at 06:59; Status DC Ringer's Solution 1,000 ml @ 30 mls/hr Q24H IV ; Start 07/25/19 at 07:00; Stop 07/25/19 at 18:59; Status DC Lidocaine HCl (Xylocaine-Mpf 1% 2ml Vial) 2 ml PRN 1X PRN ID PRIOR TO IV START; Start 07/25/19 at 07:00; Stop 07/26/19 at 06:59; Status DC Prochlorperazine Edisylate (Compazine) 5 mg PACU PRN PRN IV NAUSEA, MRX1; Start 07/25/19 at 07:00; Stop 07/26/19 at 06:59; Status DC Sodium Chloride 1,000 ml @ 1,000 mls/hr Q1H PRN IV hypotension; Start 07/23/19 at 09:10; Stop 07/23/19 at 15:09; Status DC Albumin Human 200 ml @ 200 mls/hr 1X PRN PRN IV Hypotension Last administered on 07/23/19at 10:10; Start 07/23/19 at 09:15; Stop 07/23/19 at 15:14; Status DC Sodium Chloride 1,000 ml @ 400 mls/hr Q2H30M PRN IV PATENCY; Start 07/23/19 at 09:10; Stop 07/23/19 at 21:09; Status DC Info (PHARMACY MONITORING -- do not chart) 1 each PRN DAILY PRN MC SEE COMMENTS; Start 07/23/19 at 09:15; Stop 07/24/19 at 12:45; Status DC Info (PHARMACY MONITORING -- do not chart) 1 each PRN DAILY PRN MC SEE COMMENTS; Start 07/23/19 at 09:15; Stop 07/24/19 at 12:45; Status DC Sodium Chloride 90 meq/Potassium Chloride 15 meq/ Potassium Phosphate 10 mmol/ Magnesium Sulfate 8 meq/Calcium Gluconate 15 meq/ Multivitamins 10 ml/Chromium/ Copper/Manganese/ Seleni/Zn 0.5 ml/ Insulin Human Regular 25 unit/ Total Parenteral Nutrition/Amino Acids/Dextrose/ Fat Emulsion Intravenous 1,400 ml @ 58.333 mls/ hr TPN CONT IV Last administered on 07/23/19at 22:10; Start 07/23/19 at 22:00; Stop 07/24/19 at 21:59; Status DC Magnesium Sulfate 50 ml @ 25 mls/hr PRN DAILY PRN IV for Mag < 1.7 on am labs Last administered on 08/08/19at 17:27; Start 07/24/19 at 09:15 Sodium Chloride 90 meq/Potassium Chloride 15 meq/ Potassium Phosphate 10 mmol/ Magnesium Sulfate 8 meq/Calcium Gluconate 15 meq/ Multivitamins 10 ml/Chromium/ Copper/Manganese/ Seleni/Zn 0.5 ml/ Insulin Human Regular 25 unit/ Total Parenteral Nutrition/Amino Acids/Dextrose/ Fat Emulsion Intravenous 1,400 ml @ 58.333 mls/ hr TPN CONT IV Last administered on 07/24/19at 21:20; Start 07/24/19 at 22:00; Stop 07/25/19 at 21:59; Status DC Sodium Chloride 1,000 ml @ 1,000 mls/hr Q1H PRN IV hypotension; Start 07/24/19 at 12:23; Stop 07/24/19 at 18:22; Status DC Albumin Human 200 ml @ 200 mls/hr 1X ONCE IV Last administered on 07/24/19at 13:34; Start 07/24/19 at 12:30; Stop 07/24/19 at 13:29; Status DC Diphenhydramine HCl (Benadryl) 25 mg 1X PRN PRN IV ITCHING; Start 07/24/19 at 12:30; Stop 07/25/19 at 12:29; Status DC Diphenhydramine HCl (Benadryl) 25 mg 1X PRN PRN IV ITCHING; Start 07/24/19 at 12:30; Stop 07/25/19 at 12:29; Status DC Info (PHARMACY MONITORING -- do not chart) 1 each PRN DAILY PRN MC SEE PIPE TS; Start 07/24/19 at 12:30; Status Cancel Bupivacaine HCl/ Epinephrine Bitart (Sensorcain-Epi 0.5%-1:960162 Mpf) 30 ml STK-MED ONCE .ROUTE Last administered on 07/25/19at 11:44; Start 07/25/19 at 11:00; Stop 07/25/19 at 11:01; Status DC Cellulose (Surgicel Fibrillar 1x2) 1 each STK-MED ONCE .ROUTE ; Start 07/25/19 at 11:00; Stop 07/25/19 at 11:01; Status DC Sodium Chloride 90 meq/Potassium Chloride 15 meq/ Potassium Phosphate 10 mmol/ Magnesium Sulfate 12 meq/Calcium Gluconate 15 meq/ Multivitamins 10 ml/Chromium/ Copper/Manganese/ Seleni/Zn 0.5 ml/ Insulin Human Regular 25 unit/ Total Parenteral Nutrition/Amino Acids/Dextrose/ Fat Emulsion Intravenous 1,400 ml @ 58.333 mls/ hr TPN CONT IV Last administered on 07/25/19at 22:24; Start 07/25/19 at 22:00; Stop 07/26/19 at 21:59; Status DC Propofol 20 ml @ As Directed STK-MED ONCE IV ; Start 07/25/19 at 11:07; Stop 07/25/19 at 11:07; Status DC Cellulose (Surgicel Hemostat 4x8) 1 each STK-MED ONCE .ROUTE Last administered on 07/25/19at 11:44; Start 07/25/19 at 11:55; Stop 07/25/19 at 11:56; Status DC Sevoflurane (Ultane) 60 ml STK-MED ONCE IH ; Start 07/25/19 at 12:46; Stop 07/25/19 at 12:46; Status DC Sodium Chloride 1,000 ml @ 1,000 mls/hr Q1H PRN IV hypotension; Start 07/25/19 at 13:51; Stop 07/25/19 at 19:50; Status DC Albumin Human 200 ml @ 200 mls/hr 1X PRN PRN IV Hypotension Last administered on 07/25/19at 14:51; Start 07/25/19 at 14:00; Stop 07/25/19 at 19:59; Status DC Diphenhydramine HCl (Benadryl) 25 mg 1X PRN PRN IV ITCHING; Start 07/25/19 at 14:00; Stop 07/26/19 at 13:59; Status DC Diphenhydramine HCl (Benadryl) 25 mg 1X PRN PRN IV ITCHING; Start 07/25/19 at 14:00; Stop 07/26/19 at 13:59; Status DC Sodium Chloride 1,000 ml @ 400 mls/hr Q2H30M PRN IV PATENCY; Start 07/25/19 at 13:51; Stop 07/26/19 at 01:50; Status DC Info (PHARMACY MONITORING -- do not chart) 1 each PRN DAILY PRN MC SEE COMMENTS; Start 07/25/19 at 14:00; Stop 07/28/19 at 08:16; Status DC Heparin Sodium (Porcine) (Hep Lock Adult) 500 unit STK-MED ONCE IVP ; Start 07/26/19 at 09:29; Stop 07/26/19 at 09:30; Status DC Sodium Chloride 1,000 ml @ 1,000 mls/hr Q1H PRN IV hypotension; Start 07/26/19 at 10:43; Stop 07/26/19 at 16:42; Status DC Sodium Chloride 1,000 ml @ 400 mls/hr Q2H30M PRN IV PATENCY; Start 07/26/19 at 10:43; Stop 07/26/19 at 22:42; Status DC Info (PHARMACY MONITORING -- do not chart) 1 each PRN DAILY PRN MC SEE COMMENTS; Start 07/26/19 at 10:45; Status UNV Info (PHARMACY MONITORING -- do not chart) 1 each PRN DAILY PRN MC SEE COMMENTS; Start 07/26/19 at 10:45; Status UNV Sodium Chloride 90 meq/Potassium Chloride 15 meq/ Magnesium Sulfate 12 meq/Calcium Gluconate 15 meq/ Multivitamins 10 ml/Chromium/ Copper/Manganese/ Seleni/Zn 0.5 ml/ Insulin Human Regular 25 unit/ Total Parenteral Nutrition/Amino Acids/Dextrose/ Fat Emulsion Intravenous 1,400 ml @ 58.333 mls/ hr TPN CONT IV Last administered on 07/26/19at 22:13; Start 07/26/19 at 22:00; Stop 07/27/19 at 21:59; Status DC Sodium Chloride 1,000 ml @ 1,000 mls/hr Q1H PRN IV hypotension; Start 07/27/19 at 07:50; Stop 07/27/19 at 13:49; Status DC Albumin Human 200 ml @ 200 mls/hr 1X ONCE IV ; Start 07/27/19 at 08:00; Stop 07/27/19 at 08:53; Status DC Diphenhydramine HCl (Benadryl) 25 mg 1X PRN PRN IV ITCHING; Start 07/27/19 at 08:00; Stop 07/28/19 at 07:59; Status DC Diphenhydramine HCl (Benadryl) 25 mg 1X PRN PRN IV ITCHING; Start 07/27/19 at 08:00; Stop 07/28/19 at 07:59; Status DC Info (PHARMACY MONITORING -- do not chart) 1 each PRN DAILY PRN MC SEE COMMENTS; Start 07/27/19 at 08:00; Stop 07/28/19 at 08:16; Status DC Albumin Human 50 ml @ 50 mls/hr 1X ONCE IV ; Start 07/27/19 at 08:53; Stop 07/27/19 at 08:56; Status DC Albumin Human 200 ml @ 50 mls/hr PRN 1X PRN IV HYPOTENSION Last administered on 08/02/19at 11:54; Start 07/27/19 at 09:00; Stop 09/08/19 at 11:14; Status DC Meropenem 500 mg/ Sodium Chloride 50 ml @ 100 mls/hr Q12H IV Last administered on 08/16/19at 10:45; Start 07/27/19 at 10:00; Stop 08/16/19 at 12:37; Status DC Sodium Chloride 90 meq/Magnesium Sulfate 12 meq/ Calcium Gluconate 15 meq/ Multivitamins 10 ml/Chromium/ Copper/Manganese/ Seleni/Zn 0.5 ml/ Insulin Human Regular 25 unit/ Total Parenteral Nutrition/Amino Acids/Dextrose/ Fat Emulsion Intravenous 1,400 ml @ 58.333 mls/ hr TPN CONT IV Last administered on 07/27/19at 21:41; Start 07/27/19 at 22:00; Stop 07/28/19 at 21:59; Status DC Sodium Chloride 1,000 ml @ 1,000 mls/hr Q1H PRN IV hypotension; Start 07/28/19 at 07:58; Stop 07/28/19 at 13:57; Status DC Albumin Human 200 ml @ 200 mls/hr 1X PRN PRN IV Hypotension Last administered on 07/28/19at 09:30; Start 07/28/19 at 08:00; Stop 07/28/19 at 13:59; Status DC Sodium Chloride 1,000 ml @ 400 mls/hr Q2H30M PRN IV PATENCY; Start 07/28/19 at 07:58; Stop 07/28/19 at 19:57; Status DC Info (PHARMACY MONITORING -- do not chart) 1 each PRN DAILY PRN MC SEE COMMENTS; Start 07/28/19 at 08:00; Status Cancel Info (PHARMACY MONITORING -- do not chart) 1 each PRN DAILY PRN MC SEE COMMENTS; Start 07/28/19 at 08:15; Status UNV Sodium Chloride 90 meq/Potassium Phosphate 5 mmol/ Magnesium Sulfate 12 meq/Calcium Gluconate 15 meq/ Multivitamins 10 ml/Chromium/ Copper/Manganese/ Seleni/Zn 0.5 ml/ Insulin Human Regular 30 unit/ Total Parenteral Nutrition/Amino Acids/Dextrose/ Fat Emulsion Intravenous 1,400 ml @ 58.333 mls/ hr TPN CONT IV Last administered on 07/28/19at 22:08; Start 07/28/19 at 22:00; Stop 07/29/19 at 21:59; Status DC Linezolid/Dextrose 300 ml @ 300 mls/hr Q12HR IV Last administered on 08/08/19at 20:40; Start 07/29/19 at 11:00; Stop 08/09/19 at 08:10; Status DC Sodium Chloride 90 meq/Potassium Phosphate 15 mmol/ Magnesium Sulfate 12 meq/Calcium Gluconate 15 meq/ Multivitamins 10 ml/Chromium/ Copper/Manganese/ Seleni/Zn 0.5 ml/ Insulin Human Regular 30 unit/ Total Parenteral Nutrition/Amino Acids/Dextrose/ Fat Emulsion Intravenous 1,400 ml @ 58.333 mls/ hr TPN CONT IV Last administered on 07/29/19at 21:49; Start 07/29/19 at 22:00; Stop 07/30/19 at 21:59; Status DC Sodium Chloride 90 meq/Potassium Phosphate 15 mmol/ Magnesium Sulfate 12 meq/Calcium Gluconate 15 meq/ Multivitamins 10 ml/Chromium/ Copper/Manganese/ Seleni/Zn 0.5 ml/ Insulin Human Regular 40 unit/ Total Parenteral Nutrition/Amino Acids/Dextrose/ Fat Emulsion Intravenous 1,400 ml @ 58.333 mls/ hr TPN CONT IV Last administered on 07/30/19at 21:21; Start 07/30/19 at 22:00; Stop 07/31/19 at 21:59; Status DC Sodium Chloride 1,000 ml @ 1,000 mls/hr Q1H PRN IV hypotension; Start 07/30/19 at 13:26; Stop 07/30/19 at 19:25; Status DC Albumin Human 200 ml @ 200 mls/hr 1X PRN PRN IV Hypotension Last administered on 07/30/19at 15:00; Start 07/30/19 at 13:30; Stop 07/30/19 at 19:29; Status DC Sodium Chloride (Normal Saline Flush) 10 ml 1X PRN PRN IV AP catheter pack; Start 07/30/19 at 13:30; Stop 07/31/19 at 13:29; Status DC Sodium Chloride (Normal Saline Flush) 10 ml 1X PRN PRN IV ROTARY PUMP OPERATOR catheter pack; Start 07/30/19 at 13:30; Stop 07/31/19 at 13:29; Status DC Sodium Chloride 1,000 ml @ 400 mls/hr Q2H30M PRN IV PATENCY; Start 07/30/19 at 13:26; Stop 07/31/19 at 01:25; Status DC Info (PHARMACY MONITORING -- do not chart) 1 each PRN DAILY PRN MC SEE COMMENTS; Start 07/30/19 at 13:30; Stop 07/30/19 at 13:33; Status DC Info (PHARMACY MONITORING -- do not chart) 1 each PRN DAILY PRN MC SEE COMMENTS; Start 07/30/19 at 13:30; Stop 07/30/19 at 13:34; Status DC Sodium Chloride 90 meq/Potassium Phosphate 19 mmol/ Magnesium Sulfate 12 meq/Calcium Gluconate 15 meq/ Multivitamins 10 ml/Chromium/ Copper/Manganese/ Seleni/Zn 0.5 ml/ Insulin Human Regular 40 unit/ Total Parenteral Nutrition/Amino Acids/Dextrose/ Fat Emulsion Intravenous 1,400 ml @ 58.333 mls/ hr TPN CONT IV Last administered on 07/31/19at 21:54; Start 07/31/19 at 22:00; Stop 08/01/19 at 21:59; Status DC Sodium Chloride 1,000 ml @ 1,000 mls/hr Q1H PRN IV hypotension; Start 08/01/19 at 09:35; Stop 08/01/19 at 15:34; Status DC Albumin Human 200 ml @ 200 mls/hr 1X PRN PRN IV Hypotension; Start 08/01/19 at 09:45; Stop 08/01/19 at 15:44; Status DC Diphenhydramine HCl (Benadryl) 25 mg 1X PRN PRN IV ITCHING; Start 08/01/19 at 09:45; Stop 08/02/19 at 09:44; Status DC Diphenhydramine HCl (Benadryl) 25 mg 1X PRN PRN IV ITCHING; Start 08/01/19 at 09:45; Stop 08/02/19 at 09:44; Status DC Sodium Chloride 1,000 ml @ 400 mls/hr Q2H30M PRN IV PATENCY; Start 08/01/19 at 09:35; Stop 08/01/19 at 21:34; Status DC Info (PHARMACY MONITORING -- do not chart) 1 each PRN DAILY PRN MC SEE COMMENTS; Start 08/01/19 at 09:45; Status Cancel Sodium Chloride 100 meq/Potassium Phosphate 19 mmol/ Magnesium Sulfate 12 me q/Calcium Gluconate 15 meq/ Multivitamins 10 ml/Chromium/ Copper/Manganese/ Seleni/Zn 0.5 ml/ Insulin Human Regular 40 unit/ Potassium Chloride 20 meq/ Total Parenteral Nutrition/Amino Acids/Dextrose/ Fat Emulsion Intravenous 1,400 ml @ 58.333 mls/ hr TPN CONT IV Last administered on 08/01/19at 22:02; Start 08/01/19 at 22:00; Stop 08/02/19 at 21:59; Status DC Furosemide (Lasix) 40 mg 1X ONCE IVP Last administered on 08/01/19at 14:39; Start 08/01/19 at 14:30; Stop 08/01/19 at 14:31; Status DC Metronidazole 100 ml @ 100 mls/hr Q8HRS IV Last administered on 08/09/19at 06:04; Start 08/02/19 at 10:00; Stop 08/09/19 at 08:10; Status DC Sodium Chloride 1,000 ml @ 1,000 mls/hr Q1H PRN IV hypotension; Start 08/02/19 at 08:00; Stop 08/02/19 at 13:59; Status DC Albumin Human 200 ml @ 200 mls/hr 1X PRN PRN IV Hypotension; Start 08/02/19 at 08:00; Stop 08/02/19 at 13:59; Status DC Sodium Chloride 1,000 ml @ 400 mls/hr Q2H30M PRN IV PATENCY; Start 08/02/19 at 08:00; Stop 08/02/19 at 19:59; Status DC Info (PHARMACY MONITORING -- do not chart) 1 each PRN DAILY PRN MC SEE COMMENTS; Start 08/02/19 at 11:30; Status UNV Info (PHARMACY MONITORING -- do not chart) 1 each PRN DAILY PRN MC SEE COMMENTS; Start 08/02/19 at 11:30; Stop 08/04/19 at 12:13; Status DC Sodium Chloride 100 meq/Potassium Phosphate 19 mmol/ Magnesium Sulfate 12 meq/Calcium Gluconate 15 meq/ Multivitamins 10 ml/Chromium/ Copper/Manganese/ Seleni/Zn 0.5 ml/ Insulin Human Regular 40 unit/ Potassium Chloride 20 meq/ Total Parenteral Nutrition/Amino Acids/Dextrose/ Fat Emulsion Intravenous 1,400 ml @ 58.333 mls/ hr TPN CONT IV Last administered on 08/02/19at 21:52; Start 08/02/19 at 22:00; Stop 08/03/19 at 21:59; Status DC Sodium Chloride (Normal Saline Flush) 10 ml QSHIFT PRN IV AFTER MEDS AND BLOOD DRAWS; Start 08/02/19 at 15:00; Stop 08/30/19 at 11:27; Status DC Sodium Chloride (Normal Saline Flush) 10 ml PRN Q5MIN PRN IV AFTER MEDS AND BLOOD DRAWS; Start 08/02/19 at 15:00 Sodium Chloride (Normal Saline Flush) 20 ml PRN Q5MIN PRN IV AFTER MEDS AND BLOOD DRAWS; Start 08/02/19 at 15:00 Sodium Chloride 100 meq/Potassium Phosphate 19 mmol/ Magnesium Sulfate 12 meq/Calcium Gluconate 15 meq/ Multivitamins 10 ml/Chromium/ Copper/Manganese/ Seleni/Zn 0.5 ml/ Insulin Human Regular 40 unit/ Potassium Chloride 20 meq/ Total Parenteral Nutrition/Amino Acids/Dextrose/ Fat Emulsion Intravenous 1,400 ml @ 58.333 mls/ hr TPN CONT IV Last administered on 08/03/19at 21:20; Start 08/03/19 at 22:00; Stop 08/04/19 at 21:59; Status DC Lidocaine HCl (Buffered Lidocaine 1%) 3 ml STK-MED ONCE .ROUTE ; Start 08/03/19 at 13:16; Stop 08/03/19 at 13:16; Status DC Lidocaine HCl (Buffered Lidocaine 1%) 6 ml 1X ONCE INJ Last administered on 08/03/19at 13:45; Start 08/03/19 at 13:30; Stop 08/03/19 at 13:31; Status DC Albumin Human 100 ml @ 100 mls/hr 1X ONCE IV Last administered on 08/03/19at 15:41; Start 08/03/19 at 15:00; Stop 08/03/19 at 15:59; Status DC Albumin Human 50 ml @ 50 mls/hr 1X ONCE IV Last administered on 08/03/19at 15:00; Start 08/03/19 at 15:00; Stop 08/03/19 at 15:59; Status DC Info (PHARMACY MONITORING -- do not chart) 1 each PRN DAILY PRN MC SEE COMMENTS; Start 08/04/19 at 11:30; Status Cancel Info (PHARMACY MONITORING -- do not chart) 1 each PRN DAILY PRN MC SEE COMMENTS; Start 08/04/19 at 11:30; Status UNV Sodium Chloride 100 meq/Potassium Phosphate 10 mmol/ Magnesium Sulfate 12 meq/Calcium Gluconate 15 meq/ Multivitamins 10 ml/Chromium/ Copper/Manganese/ Seleni/Zn 0.5 ml/ Insulin Human Regular 35 unit/ Potassium Chloride 20 meq/ Total Parenteral Nutrition/Amino Acids/Dextrose/ Fat Emulsion Intravenous 1,400 ml @ 58.333 mls/ hr TPN CONT IV Last administered on 08/04/19at 22:10; Start 08/04/19 at 22:00; Stop 08/05/19 at 21:59; Status DC Sodium Chloride 100 meq/Potassium Phosphate 5 mmol/ Magnesium Sulfate 12 meq/Calcium Gluconate 15 meq/ Multivitamins 10 ml/Chromium/ Copper/Manganese/ Seleni/Zn 0.5 ml/ Insulin Human Regular 35 unit/ Potassium Chloride 20 meq/ Total Parenteral Nutrition/Amino Acids/Dextrose/ Fat Emulsion Intravenous 1,400 ml @ 58.333 mls/ hr TPN CONT IV Last administered on 08/05/19at 22:59; Start 08/05/19 at 22:00; Stop 08/06/19 at 21:59; Status DC Sodium Chloride 1,000 ml @ 1,000 mls/hr Q1H PRN IV hypotension; Start 08/06/19 at 08:27; Stop 08/06/19 at 14:26; Status DC Albumin Human 200 ml @ 200 mls/hr 1X PRN PRN IV Hypotension Last administered on 08/06/19at 09:18; Start 08/06/19 at 08:30; Stop 08/06/19 at 14:29; Status DC Sodium Chloride 1,000 ml @ 400 mls/hr Q2H30M PRN IV PATENCY; Start 08/06/19 at 08:27; Stop 08/06/19 at 20:26; Status DC Info (PHARMACY MONITORING -- do not chart) 1 each PRN DAILY PRN MC SEE COMMENTS; Start 08/06/19 at 08:30; Status Cancel Info (PHARMACY MONITORING -- do not chart) 1 each PRN DAILY PRN MC SEE COMMENTS; Start 08/06/19 at 08:30; Stop 08/14/19 at 13:10; Status DC Sodium Chloride 100 meq/Potassium Chloride 40 meq/ Magnesium Sulfate 15 meq/Calcium Gluconate 15 meq/ Multivitamins 10 ml/Chromium/ Copper/Manganese/ Seleni/Zn 0.5 ml/ Insulin Human Regular 35 unit/ Total Parenteral Nutrition /Amino Acids/Dextrose/ Fat Emulsion Intravenous 1,400 ml @ 58.333 mls/ hr TPN CONT IV Last administered on 08/06/19at 22:00; Start 08/06/19 at 22:00; Stop 08/07/19 at 21:59; Status DC Potassium Chloride/Water 100 ml @ 100 mls/hr 1X ONCE IV Last administered on 08/06/19at 17:28; Start 08/06/19 at 14:45; Stop 08/06/19 at 15:44; Status DC Sodium Chloride 100 meq/Potassium Chloride 40 meq/ Magnesium Sulfate 15 meq/Calcium Gluconate 15 meq/ Multivitamins 10 ml/Chromium/ Copper/Manganese/ Seleni/Zn 0.5 ml/ Insulin Human Regular 35 unit/ Total Parenteral Nutrition/Amino Acids/Dextrose/ Fat Emulsion Intravenous 1,400 ml @ 58.333 mls/ hr TPN CONT IV Last administered on 08/07/19at 22:46; Start 08/07/19 at 22:00; Stop 08/08/19 at 21:59; Status DC Sodium Chloride 100 meq/Potassium Chloride 40 meq/ Magnesium Sulfate 20 meq/Calcium Gluconate 15 meq/ Multivitamins 10 ml/Chromium/ Copper/Manganese/ Seleni/Zn 0.5 ml/ Insulin Human Regular 35 unit/ Total Parenteral Nutrition/Amino Acids/Dextrose/ Fat Emulsion Intravenous 1,400 ml @ 58.333 mls/ hr TPN CONT IV Last administered on 08/08/19at 22:31; Start 08/08/19 at 22:00; Stop 08/09/19 at 21:59; Status DC Fentanyl Citrate (Fentanyl 2ml Vial) 50 mcg PRN Q2HR PRN IVP PAIN Last administered on 08/15/19at 13:32; Start 08/08/19 at 21:00; Stop 08/16/19 at 12:53; Status DC Fentanyl Citrate (Fentanyl 2ml Vial) 25 mcg PRN Q2HR PRN IVP PAIN; Start 08/08/19 at 21:00; Stop 08/16/19 at 12:54; Status DC Enoxaparin Sodium (Lovenox 100mg Syringe) 100 mg Q12HR SQ ; Start 08/09/19 at 21:00; Status UNV Amino Acids/ Glycerin/ Electrolytes 1,000 ml @ 75 mls/hr [id number] IV ; Start 08/08/19 at 21:15; Status UNV Sodium Chloride 1,000 ml @ 1,000 mls/hr Q1H PRN IV hypotension; Start 08/09/19 at 07:56; Stop 08/09/19 at 13:55; Status DC Albumin Human 200 ml @ 200 mls/hr 1X PRN PRN IV Hypotension Last administered on 08/09/19at 08:40; Start 08/09/19 at 08:00; Stop 08/09/19 at 13:59; Status DC Sodium Chloride 1,000 ml @ 400 mls/hr Q2H30M PRN IV PATENCY; Start 08/09/19 at 07:56; Stop 08/09/19 at 19:55; Status DC Info (PHARMACY MONITORING -- do not chart) 1 each PRN DAILY PRN MC SEE COMMENTS; Start 08/09/19 at 08:00; Status UNV Info (PHARMACY MONITORING -- do not chart) 1 each PRN DAILY PRN MC SEE COMMENTS; Start 08/09/19 at 08:00; Status UNV Daptomycin 430 mg/ Sodium Chloride 50 ml @ 100 mls/hr Q24H IV Last administered on 08/09/19at 12:35; Start 08/09/19 at 09:00; Stop 08/09/19 at 12:49; Status DC Sodium Chloride 100 meq/Potassium Chloride 40 meq/ Magnesium Sulfate 20 meq/Calcium Gluconate 15 meq/ Multivitamins 10 ml/Chromium/ Copper/Manganese/ Seleni/Zn 0.5 ml/ Insulin Human Regular 35 unit/ Total Parenteral Nutrition/Amino Acids/Dextrose/ Fat Emulsion Intravenous 1,400 ml @ 58.333 mls/ hr TPN CONT IV Last administered on 08/09/19at 21:26; Start 08/09/19 at 22:00; Stop 08/10/19 at 21:59; Status DC Daptomycin 430 mg/ Sodium Chloride 50 ml @ 100 mls/hr Q48H IV ; Start 08/11/19 at 09:00; Stop 08/10/19 at 11:55; Status DC Sodium Chloride 100 meq/Potassium Chloride 40 meq/ Magnesium Sulfate 20 meq/Calcium Gluconate 15 meq/ Multivitamins 10 ml/Chromium/ Copper/Manganese/ Seleni/Zn 0.5 ml/ Insulin Human Regular 35 unit/ Total Parenteral Nutrition/Amino Acids/Dextrose/ Fat Emulsion Intravenous 1,400 ml @ 58.333 mls/ hr TPN CONT IV Last administered on 08/10/19at 22:27; Start 08/10/19 at 22:00; Stop 08/11/19 at 21:59; Status DC Daptomycin 430 mg/ Sodium Chloride 50 ml @ 100 mls/hr Q24H IV Last administered on 08/12/19at 15:07; Start 08/10/19 at 13:00; Stop 08/13/19 at 13:15; Status DC Sodium Chloride 100 meq/Potassium Chloride 40 meq/ Magnesium Sulfate 20 meq/Calcium Gluconate 10 meq/ Multivitamins 10 ml/Chromium/ Copper/Manganese/ Seleni/Zn 0.5 ml/ Insulin Human Regular 35 unit/ Total Parenteral Nutrition/Amino Acids/Dextrose/ Fat Emulsion Intravenous 1,400 ml @ 58.333 mls/ hr TPN CONT IV Last administered on 08/12/19at 00:06; Start 08/11/19 at 22:00; Stop 08/12/19 at 21:59; Status DC Alteplase, Recombinant (Cathflo For Central Catheter Clearance) 1 mg 1X ONCE INT CAT Last administered on 08/12/19at 11:44; Start 08/12/19 at 10:45; Stop 08/12/19 at 10:46; Status DC Ondansetron HCl (Zofran) 4 mg PRN Q6HRS PRN IV NAUSEA/VOMITING; Start 08/15/19 at 07:00; Stop 08/16/19 at 06:59; Status DC Fentanyl Citrate (Fentanyl 2ml Vial) 25 mcg PRN Q5MIN PRN IV MILD PAIN 1-3; Start 08/15/19 at 07:00; Stop 08/16/19 at 06:59; Status DC Fentanyl Citrate (Fentanyl 2ml Vial) 50 mcg PRN Q5MIN PRN IV MODERATE TO SEVERE PAIN Last administered on 08/15/19at 10:17; Start 08/15/19 at 07:00; Stop 08/16/19 at 06:59; Status DC Ringer's Solution 1,000 ml @ 30 mls/hr Q24H IV ; Start 08/15/19 at 07:00; Stop 08/15/19 at 18:59; Status DC Lidocaine HCl (Xylocaine-Mpf 1% 2ml Vial) 2 ml PRN 1X PRN ID PRIOR TO IV START; Start 08/15/19 at 07:00; Stop 08/16/19 at 06:59; Status DC Prochlorperazine Edisylate (Compazine) 5 mg PACU PRN PRN IV NAUSEA, MRX1; Start 08/15/19 at 07:00; Stop 08/16/19 at 06:59; Status DC Sodium Acetate 50 meq/Potassium Acetate 55 meq/ Magnesium Sulfate 20 meq/Calcium Gluconate 10 meq/ Multivitamins 10 ml/Chromium/ Copper/Manganese/ Seleni/Zn 0.5 ml/ Insulin Human Regular 35 unit/ Total Parenteral Nutrition/Amino Acids/ Dextrose/ Fat Emulsion Intravenous 1,400 ml @ 58.333 mls/ hr TPN CONT IV ; Start 08/12/19 at 22:00; Stop 08/12/19 at 14:15; Status DC Sodium Acetate 50 meq/Potassium Acetate 55 meq/ Magnesium Sulfate 20 meq/Calcium Gluconate 10 meq/ Multivitamins 10 ml/Chromium/ Copper/Manganese/ Seleni/Zn 0.5 ml/ Insulin Human Regular 35 unit/ Total Parenteral Nutrition/Amino Acids/Dextrose/ Fat Emulsion Intravenous 1,800 ml @ 75 mls/hr TPN CONT IV Last administered on 08/12/19at 22:38; Start 08/12/19 at 22:00; Stop 08/13/19 at 21:59; Status DC Sodium Chloride 1,000 ml @ 1,000 mls/hr Q1H PRN IV hypotension; Start 08/12/19 at 15:31; Stop 08/12/19 at 21:30; Status DC Diphenhydramine HCl (Benadryl) 25 mg 1X PRN PRN IV ITCHING; Start 08/12/19 at 15:45; Stop 08/13/19 at 15:44; Status DC Diphenhydramine HCl (Benadryl) 25 mg 1X PRN PRN IV ITCHING; Start 08/12/19 at 15:45; Stop 08/13/19 at 15:44; Status DC Sodium Chloride 1,000 ml @ 400 mls/hr Q2H30M PRN IV PATENCY; Start 08/12/19 at 15:31; Stop 08/13/19 at 03:30; Status DC Info (PHARMACY MONITORING -- do not chart) 1 each PRN DAILY PRN MC SEE COMMENTS; Start 08/12/19 at 15:45; Stop 09/13/19 at 14:14; Status DC Sodium Acetate 50 meq/Potassium Acetate 55 meq/ Magnesium Sulfate 20 meq/Calcium Gluconate 10 meq/ Multivitamins 10 ml/Chromium/ Copper/Manganese/ Seleni/Zn 0.5 ml/ Insulin Human Regular 35 unit/ Total Parenteral Nutrition/Amino Acids/D extrose/ Fat Emulsion Intravenous 1,800 ml @ 75 mls/hr TPN CONT IV Last administered on 08/13/19at 22:03; Start 08/13/19 at 22:00; Stop 08/14/19 at 21:59; Status DC Daptomycin 430 mg/ Sodium Chloride 50 ml @ 100 mls/hr Q24H IV Last administered on 08/18/19at 13:00; Start 08/13/19 at 13:00; Stop 08/18/19 at 20:58; Status DC Heparin Sodium (Porcine) 1000 unit/Sodium Chloride 1,001 ml @ 1,001 mls/hr 1X ONCE IRR ; Start 08/15/19 at 06:00; Stop 08/15/19 at 06:59; Status DC Potassium Acetate 55 meq/Magnesium Sulfate 20 meq/ Calcium Gluconate 10 meq/ Multivitamins 10 ml/Chromium/ Copper/Manganese/ Seleni/Zn 0.5 ml/ Insulin Human Regular 35 unit/ Total Parenteral Nutrition/Amino Acids/Dextrose/ Fat Emulsion Intravenous 1,920 ml @ 80 mls/hr TPN CONT IV Last administered on 08/14/19at 22:10; Start 08/14/19 at 22:00; Stop 08/15/19 at 21:59; Status DC Dexamethasone Sodium Phosphate (Decadron) 4 mg STK-MED ONCE .ROUTE ; Start 08/15/19 at 10:56; Stop 08/15/19 at 10:57; Status DC Ondansetron HCl (Zofran) 4 mg STK-MED ONCE .ROUTE ; Start 08/15/19 at 10:56; Stop 08/15/19 at 10:57; Status DC Rocuronium Kenney (Zemuron) 50 mg STK-MED ONCE .ROUTE ; Start 08/15/19 at 10:56; Stop 08/15/19 at 10:57; Status DC Fentanyl Citrate (Fentanyl 2ml Vial) 100 mcg STK-MED ONCE .ROUTE ; Start 08/15/19 at 10:56; Stop 08/15/19 at 10:57; Status DC Bupivacaine HCl/ Epinephrine Bitart (Sensorcain-Epi 0.5%-1:590822 Mpf) 30 ml STK-MED ONCE .ROUTE Last administered on 08/15/19at 12:01; Start 08/15/19 at 10:58; Stop 08/15/19 at 10:58; Status DC Cellulose (Surgicel Hemostat 2x14) 1 each STK-MED ONCE .ROUTE ; Start 08/15/19 at 10:58; Stop 08/15/19 at 10:59; Status DC Iohexol (Omnipaque 300 Mg/ml) 50 ml STK-MED ONCE .ROUTE ; Start 08/15/19 at 10:58; Stop 08/15/19 at 10:59; Status DC Cellulose (Surgicel Hemostat 4x8) 1 each STK-MED ONCE .ROUTE ; Start 08/15/19 at 10:58; Stop 08/15/19 at 10:59; Status DC Bisacodyl (Dulcolax Supp) 10 mg STK-MED ONCE .ROUTE ; Start 08/15/19 at 10:59; Stop 08/15/19 at 10:59; Status DC Heparin Sodium (Porcine) 1000 unit/Sodium Chloride 1,001 ml @ 1,001 mls/hr 1X ONCE IRR ; Start 08/15/19 at 12:00; Stop 08/15/19 at 12:59; Status DC Propofol 20 ml @ As Directed STK-MED ONCE IV ; Start 08/15/19 at 11:05; Stop 08/15/19 at 11:05; Status DC Sevoflurane (Ultane) 90 ml STK-MED ONCE IH ; Start 08/15/19 at 11:05; Stop 08/15/19 at 11:05; Status DC Sevoflurane (Ultane) 60 ml STK-MED ONCE IH ; Start 08/15/19 at 12:26; Stop 08/15/19 at 12:27; Status DC Propofol 20 ml @ As Directed STK-MED ONCE IV ; Start 08/15/19 at 12:26; Stop 08/15/19 at 12:27; Status DC Phenylephrine HCl (PHENYLEPHRINE in 0.9% NACL PF) 1 mg STK-MED ONCE IV ; Start 08/15/19 at 12:34; Stop 08/15/19 at 12:34; Status DC Heparin Sodium (Porcine) (Heparin Sodium) 5,000 unit Q12HR SQ Last administered on 08/24/19at 20:57; Start 08/15/19 at 21:00; Stop 08/25/19 at 09:59; Status DC Sodium Chloride (Normal Saline Flush) 3 ml QSHIFT PRN IV AFTER MEDS AND BLOOD DRAWS; Start 08/15/19 at 13:45 Naloxone HCl (Narcan) 0.4 mg PRN Q2MIN PRN IV SEE INSTRUCTIONS; Start 08/15/19 at 13:45 Sodium Chloride 1,000 ml @ 25 mls/hr Q24H IV Last administered on 09/13/19at 13:37; Start 08/15/19 at 13:37; Stop 09/16/19 at 13:09; Status DC Naloxone HCl (Narcan) 0.4 mg PRN Q2MIN PRN IV SEE INSTRUCTIONS; Start 08/15/19 at 14:30; Status UNV Sodium Chloride 1,000 ml @ 25 mls/hr Q24H IV ; Start 08/15/19 at 14:30; Status UNV Hydromorphone HCl 30 ml @ 0 mls/hr CONT PRN PRN IV PER PROTOCOL Last administered on 08/20/19at 16:08; Start 08/15/19 at 14:30; Stop 08/22/19 at 08:55; Status DC Potassium Acetate 55 meq/Magnesium Sulfate 20 meq/ Calcium Gluconate 10 meq/ Multivitamins 10 ml/Chromium/ Copper/Manganese/ Seleni/Zn 0.5 ml/ Insulin Human Regular 35 unit/ Total Parenteral Nutrition/Amino Acids/Dextrose/ Fat Emulsion Intravenous 1,920 ml @ 80 mls/hr TPN CONT IV Last administered on 08/15/19at 22:01; Start 08/15/19 at 22:00; Stop 08/16/19 at 21:59; Status DC Bumetanide (Bumex) 2 mg [id number] IV Last administered on 08/19/19at 13:50; Start 08/16/19 at 14:00; Stop 08/20/19 at 14:10; Status DC Meropenem 1 gm/ Sodium Chloride 100 ml @ 200 mls/hr Q8HRS IV Last administered on 09/09/19at 05:53; Start 08/16/19 at 14:00; Stop 09/09/19 at 09:31; Status DC Potassium Acetate 55 meq/Magnesium Sulfate 20 meq/ Calcium Gluconate 10 meq/ Multivitamins 10 ml/Chromium/ Copper/Manganese/ Seleni/Zn 0.5 ml/ Insulin Human Regular 35 unit/ Total Parenteral Nutrition/Amino Acids/Dextrose/ Fat Emulsion Intravenous 1,920 ml @ 80 mls/hr TPN CONT IV Last administered on 08/16/19at 22:02; Start 08/16/19 at 22:00; Stop 08/17/19 at 21:59; Status DC Hydromorphone HCl (Dilaudid Standard MUSIC [employer]ER[employer]Y TE[employer]ER) 12 mg STK-MED ONCE IV ; Start 08/15/19 at 14:35; Stop 08/16/19 at 13:53; Status DC Artificial Tears (Artificial Tears) 1 drop PRN Q15MIN PRN OU DRY EYE Last administered on 09/16/19at 10:08; Start 08/17/19 at 05:30 Hydromorphone HCl (Dilaudid Standard MUSIC THERAPY TE[employer]ER) 12 mg STK-MED ONCE IV ; Start 08/16/19 at 12:05; Stop 08/17/19 at 09:15; Status DC Potassium Acetate 65 meq/Magnesium Sulfate 20 meq/ Calcium Gluconate 10 meq/ Multivitamins 10 ml/Chromium/ Copper/Manganese/ Seleni/Zn 0.5 ml/ Insulin Human Regular 30 unit/ Total Parenteral Nutrition/Amino Acids/Dextrose/ Fat Emulsion Intravenous 1,920 ml @ 80 mls/hr TPN CONT IV Last administered on 08/17/19at 22:22; Start 08/17/19 at 22:00; Stop 08/18/19 at 21:59; Status DC Cyclobenzaprine HCl (Flexeril) 10 mg PRN Q6HRS PRN PO MUSCLE SPASMS; Start 08/18/19 at 10:45 Potassium Acetate 55 meq/Magnesium Sulfate 20 meq/ Calcium Gluconate 10 meq/ Multivitamins 10 ml/Chromium/ Copper/Manganese/ Seleni/Zn 0.5 ml/ Insulin Human Regular 30 unit/ Total Parenteral Nutrition/Amino Acids/Dextrose/ Fat Emulsion Intravenous 1,920 ml @ 80 mls/hr TPN CONT IV Last administered on 08/19/19at 01:00; Start 08/18/19 at 22:00; Stop 08/19/19 at 21:59; Status DC Magnesium Sulfate 50 ml @ 25 mls/hr 1X ONCE IV Last administered on 08/18/19at 17:18; Start 08/18/19 at 12:45; Stop 08/18/19 at 14:44; Status DC Potassium Chloride/Water 100 ml @ 100 mls/hr 1X ONCE IV Last administered on 08/19/19at 11:27; Start 08/19/19 at 12:00; Stop 08/19/19 at 12:59; Status DC Hydromorphone HCl (Dilaudid Standard MUSIC [employer]ER[employer]Y TE[employer]ER) 12 mg STK-MED ONCE IV ; Start 08/17/19 at 10:50; Stop 08/19/19 at 11:02; Status DC Hydromorphone HCl (Dilaudid Standard MUSIC THERAPY TE[employer]ER) 12 mg STK-MED ONCE IV ; Start 08/18/19 at 13:47; Stop 08/19/19 at 11:03; Status DC Potassium Acetate 30 meq/Magnesium Sulfate 20 meq/ Calcium Gluconate 10 meq/ Multivitamins 10 ml/Chromium/ Copper/Manganese/ Seleni/Zn 0.5 ml/ Insulin Human Regular 30 unit/ Potassium Chloride 30 meq/ Total Parenteral Nutrition/Amino Acids/Dextrose/ Fat Emulsion Intravenous 1,920 ml @ 80 mls/hr TPN CONT IV Last administered on 08/19/19at 22:34; Start 08/19/19 at 22:00; Stop 08/20/19 at 21:59; Status DC Potassium Chloride/Water 100 ml @ 100 mls/hr Q1H IV Last administered on 08/19at 13:05; Start 08/20/19 at 07:00; Stop 08/20/19 at 10:59; Status DC Magnesium Sulfate 50 ml @ 25 mls/hr 1X ONCE IV Last administered on 08/20/19at 10:34; Start 08/20/19 at 10:30; Stop 08/20/19 at 12:29; Status DC Potassium Chloride 75 meq/ Magnesium Sulfate 20 meq/Calcium Gluconate 10 meq/ Multivitamins 10 ml/Chromium/ Copper/Manganese/ Seleni/Zn 0.5 ml/ Insulin Human Regular 30 unit/ Total Parenteral Nutrition/Amino Acids/Dextrose/ Fat Emulsion Intravenous 1,920 ml @ 80 mls/hr TPN CONT IV Last administered on 08/20/19at 21:51; Start 08/20/19 at 22:00; Stop 08/21/19 at 22:00; Status DC Potassium Chloride 75 meq/ Magnesium Sulfate 20 meq/Calcium Gluconate 10 meq/ Multivitamins 10 ml/Chromium/ Copper/Manganese/ Seleni/Zn 0.5 ml/ Insulin Human Regular 25 unit/ Total Parenteral Nutrition/Amino Acids/Dextrose/ Fat Emulsion Intravenous 1,920 ml @ 80 mls/hr TPN CONT IV Last administered on 08/21/19at 22:04; Start 08/21/19 at 22:00; Stop 08/22/19 at 21:59; Status DC Hydromorphone HCl (Dilaudid) 0.4 mg PRN Q4HRS PRN IVP PAIN Last administered on 08/22/19at 10:57; Start 08/22/19 at 09:00; Stop 08/22/19 at 18:59; Status DC Micafungin Sodium 100 mg/Dextrose 100 ml @ 100 mls/hr Q24H IV Last administered on 09/13/19at 12:17; Start 08/22/19 at 11:00; Stop 09/14/19 at 09:59; Status DC Daptomycin 485 mg/ Sodium Chloride 50 ml @ 100 mls/hr Q24H IV Last administered on 08/29/19at 13:10; Start 08/22/19 at 11:00; Stop 08/30/19 at 07:44; Status DC Potassium Chloride 75 meq/ Magnesium Sulfate 15 meq/Calcium Gluconate 8 meq/ Multivitamins 10 ml/Chromium/ Copper/Manganese/ Seleni/Zn 0.5 ml/ Insulin Human Regular 25 unit/ Total Parenteral Nutrition/Amino Acids/Dextrose/ Fat Emulsion Intravenous 1,920 ml @ 80 mls/hr TPN CONT IV Last administered on 08/22/19at 23:08; Start 08/22/19 at 22:00; Stop 08/23/19 at 21:59; Status DC Haloperidol Lactate (Haldol Inj) 3 mg 1X ONCE IVP Last administered on 08/22/19at 14:37; Start 08/22/19 at 14:30; Stop 08/22/19 at 14:31; Status DC Hydromorphone HCl (Dilaudid) 1 mg PRN Q4HRS PRN IVP PAIN Last administered on 09/05/19at 06:25; Start 08/22/19 at 19:00; Stop 09/05/19 at 17:10; Status DC Potassium Chloride 75 meq/ Magnesium Sulfate 15 meq/Calcium Gluconate 8 meq/ Multivitamins 10 ml/Chromium/ Copper/Manganese/ Seleni/Zn 0.5 ml/ Insulin Human Regular 20 unit/ Total Parenteral Nutrition/Amino Acids/Dextrose/ Fat Emulsion Intravenous 1,920 ml @ 80 mls/hr TPN CONT IV Last administered on 08/23/19at 22:10; Start 08/23/19 at 22:00; Stop 08/24/19 at 21:59; Status DC Lidocaine HCl (Buffered Lidocaine 1%) 3 ml STK-MED ONCE .ROUTE ; Start 08/24/19 at 11:31; Stop 08/24/19 at 11:31; Status DC Lidocaine HCl (Buffered Lidocaine 1%) 3 ml STK-MED ONCE .ROUTE ; Start 08/24/19 at 12:28; Stop 08/24/19 at 12:29; Status DC Lidocaine HCl (Buffered Lidocaine 1%) 6 ml 1X ONCE INJ Last administered on 08/24/19at 12:53; Start 08/24/19 at 12:45; Stop 08/24/19 at 12:46; Status DC Potassium Chloride 75 meq/ Magnesium Sulfate 15 meq/Calcium Gluconate 8 meq/ Multivitamins 10 ml/Chromium/ Copper/Manganese/ Seleni/Zn 0.5 ml/ Insulin Human Regular 20 unit/ Total Parenteral Nutrition/Amino Acids/Dextrose/ Fat Emulsion Intravenous 1,920 ml @ 80 mls/hr TPN CONT IV Last administered on 08/24/19at 22:00; Start 08/24/19 at 22:00; Stop 08/25/19 at 21:59; Status DC Potassium Chloride 75 meq/ Magnesium Sulfate 15 meq/Calcium Gluconate 8 meq/ Multivitamins 10 ml/Chromium/ Copper/Manganese/ Seleni/Zn 0.5 ml/ Insulin Human Regular 15 unit/ Total Parenteral Nutrition/Amino Acids/Dextrose/ Fat Emulsion Intravenous 1,920 ml @ 80 mls/hr TPN CONT IV Last administered on 08/25/19at 22:28; Start 08/25/19 at 22:00; Stop 08/26/19 at 21:59; Status DC Vecuronium Kenney (Norcuron Bolus) 6 mg PRN Q6HRS PRN IV VENT ASYNCHRONY; Start 08/25/19 at 19:15; Stop 08/25/19 at 19:35; Status DC Bumetanide (Bumex) 2 mg 1X ONCE IV Last administered on 08/25/19at 22:09; Start 08/25/19 at 19:45; Stop 08/25/19 at 19:46; Status DC Lidocaine HCl (Buffered Lidocaine 1%) 3 ml STK-MED ONCE .ROUTE ; Start 08/26/19 at 07:59; Stop 08/26/19 at 07:59; Status DC Midazolam HCl (Versed) 5 mg STK-MED ONCE .ROUTE ; Start 08/26/19 at 08:36; Stop 08/26/19 at 08:36; Status DC Fentanyl Citrate (Fentanyl 5ml Vial) 250 mcg STK-MED ONCE .ROUTE ; Start 08/26/19 at 08:36; Stop 08/26/19 at 08:37; Status DC Lidocaine HCl (Buffered Lidocaine 1%) 3 ml 1X ONCE IJ Last administered on 08/26/19at 09:30; Start 08/26/19 at 09:15; Stop 08/26/19 at 09:16; Status DC Midazolam HCl (Versed) 5 mg 1X ONCE IV Last administered on 08/26/19at 09:30; Start 08/26/19 at 09:15; Stop 08/26/19 at 09:16; Status DC Fentanyl Citrate (Fentanyl 5ml Vial) 250 mcg 1X ONCE IV Last administered on 08/26/19at 09:30; Start 08/26/19 at 09:15; Stop 08/26/19 at 09:16; Status DC Bumetanide (Bumex) 2 mg DAILY IV Last administered on 09/05/19at 08:07; Start 08/26/19 at 10:00; Stop 09/05/19 at 17:15; Status DC Potassium Chloride 75 meq/ Magnesium Sulfate 15 meq/ Multivitamins 10 ml/Chromium/ Copper/Manganese/ Seleni/Zn 0.5 ml/ Insulin Human Regular 15 unit/ Total Parenteral Nutrition/Amino Acids/Dextrose/ Fat Emulsion Intravenous 1,920 ml @ 80 mls/hr TPN CONT IV Last administered on 08/26/19at 21:59; Start 08/26/19 at 22:00; Stop 08/27/19 at 21:59; Status DC Metoclopramide HCl (Reglan Vial) 10 mg PRN Q3HRS PRN IVP NAUSEA/VOMITING-3rd choice Last administered on 09/01/19at 04:25; Start 08/27/19 at 16:45 Potassium Chloride 75 meq/ Magnesium Sulfate 15 meq/ Multivitamins 10 ml/Chromium/ Copper/Manganese/ Seleni/Zn 0.5 ml/ Insulin Human Regular 15 unit/ Total Parenteral Nutrition/Amino Acids/Dextrose/ Fat Emulsion Intravenous 1,920 ml @ 80 mls/hr TPN CONT IV Last administered on 08/27/19at 22:41; Start 08/27/19 at 22:00; Stop 08/28/19 at 21:59; Status DC Magnesium Sulfate 50 ml @ 25 mls/hr 1X ONCE IV Last administered on 08/28/19at 10:44; Start 08/28/19 at 09:00; Stop 08/28/19 at 10:59; Status DC Potassium Chloride/Water 100 ml @ 100 mls/hr 1X ONCE IV Last administered on 08/28/19at 09:37; Start 08/28/19 at 09:00; Stop 08/28/19 at 09:59; Status DC Duloxetine HCl (Cymbalta) 30 mg DAILY PO Last administered on 08/29/19at 09:48; Start 08/28/19 at 14:00; Stop 08/31/19 at 10:25; Status DC Potassium Chloride 80 meq/ Magnesium Sulfate 20 meq/ Multivitamins 10 ml/Chromium/ Copper/Manganese/ Seleni/Zn 0.5 ml/ Insulin Human Regular 15 unit/ Total Parenteral Nutrition/Amino Acids/Dextrose/ Fat Emulsion Intravenous 1,920 ml @ 80 mls/hr TPN CONT IV Last administered on 08/28/19at 21:42; Start 08/28/19 at 22:00; Stop 08/29/19 at 21:59; Status DC Potassium Chloride 80 meq/ Magnesium Sulfate 20 meq/ Multivitamins 10 ml/Chromium/ Copper/Manganese/ Seleni/Zn 0.5 ml/ Insulin Human Regular 15 unit/ Total Parenteral Nutrition/Amino Acids/Dextrose/ Fat Emulsion Intravenous 1,920 ml @ 80 mls/hr TPN CONT IV Last administered on 08/29/19at 22:20; Start 08/29/19 at 22:00; Stop 08/30/19 at 21:59; Status DC Lidocaine HCl (Buffered Lidocaine 1%) 3 ml STK-MED ONCE .ROUTE ; Start 08/30/19 at 09:54; Stop 08/30/19 at 09:55; Status DC Hydromorphone HCl (Dilaudid Standard [employer]) 12 mg STK-MED ONCE IV ; Start 08/19/19 at 15:50; Stop 08/30/19 at 11:24; Status DC Potassium Chloride 80 meq/ Magnesium Sulfate 20 meq/ Multivitamins 10 ml/Chromium/ Copper/Manganese/ Seleni/Zn 0.5 ml/ Insulin Human Regular 15 unit/ Total Parenteral Nutrition/Amino Acids/Dextrose/ Fat Emulsion Intravenous 1,920 ml @ 80 mls/hr TPN CONT IV Last administered on 08/30/19at 21:40; Start 08/30/19 at 22:00; Stop 08/31/19 at 21:59; Status DC Lidocaine HCl (Buffered Lidocaine 1%) 6 ml 1X ONCE INJ Last administered on 08/30/19at 14:15; Start 08/30/19 at 14:15; Stop 08/30/19 at 14:16; Status DC Potassium Chloride 80 meq/ Magnesium Sulfate 20 meq/ Multivitamins 10 ml/Chromium/ Copper/Manganese/ Seleni/Zn 1 ml/ Insulin Human Regular 15 unit/ Total Parenteral Nutrition/Amino Acids/Dextrose/ Fat Emulsion Intravenous 1,920 ml @ 80 mls/hr TPN CONT IV Last administered on 08/31/19at 22:04; Start 08/31/19 at 22:00; Stop 09/01/19 at 21:59; Status DC Potassium Chloride/Water 100 ml @ 100 mls/hr 1X ONCE IV Last administered on 09/01/19at 11:34; Start 09/01/19 at 11:00; Stop 09/01/19 at 11:59; Status DC Potassium Chloride 90 meq/ Magnesium Sulfate 20 meq/ Multivitamins 10 ml/Chromium/ Copper/Manganese/ Seleni/Zn 1 ml/ Insulin Human Regular 15 unit/ Total Parenteral Nutrition/Amino Acids/Dextrose/ Fat Emulsion Intravenous 1,920 ml @ 80 mls/hr TPN CONT IV Last administered on 09/01/19at 22:57; Start 09/01/19 at 22:00; Stop 09/02/19 at 21:59; Status DC Potassium Chloride 90 meq/ Magnesium Sulfate 20 meq/ Multivitamins 10 ml/Chromium/ Copper/Manganese/ Seleni/Zn 1 ml/ Insulin Human Regular 15 unit/ Total Parenteral Nutrition/Amino Acids/Dextrose/ Fat Emulsion Intravenous 1,920 ml @ 80 mls/hr TPN CONT IV Last administered on 09/02/19at 22:48; Start 09/02/19 at 22:00; Stop 09/03/19 at 21:59; Status DC Potassium Chloride 90 meq/ Magnesium Sulfate 20 meq/ Multivitamins 10 ml/Chromium/ Copper/Manganese/ Seleni/Zn 1 ml/ Insulin Human Regular 15 unit/ Total Parenteral Nutrition/Amino Acids/Dextrose/ Fat Emulsion Intravenous 1,890 ml @ 78.75 mls/ hr TPN CONT IV Last administered on 09/03/19at 22:15; Start 09/03/19 at 22:00; Stop 09/04/19 at 21:59; Status DC Linezolid/Dextrose 300 ml @ 300 mls/hr Q12HR IV Last administered on 09/06/19at 21:08; Start 09/04/19 at 09:00; Stop 09/07/19 at 08:11; Status DC Daptomycin 450 mg/ Sodium Chloride 50 ml @ 100 mls/hr Q24H IV Last administered on 09/07/19at 09:25; Start 09/04/19 at 09:00; Stop 09/08/19 at 08:30; Status DC Potassium Chloride 90 meq/ Magnesium Sulfate 20 meq/ Multivitamins 10 ml/Chromium/ Copper/Manganese/ Seleni/Zn 1 ml/ Insulin Human Regular 15 unit/ Total Parenteral Nutrition/Amino Acids/Dextrose/ Fat Emulsion Intravenous 1,890 ml @ 78.75 mls/ hr TPN CONT IV Last administered on 09/04/19at 21:34; Start 09/04/19 at 22:00; Stop 09/05/19 at 21:59; Status DC Lorazepam (Ativan Inj) 2 mg STK-MED ONCE .ROUTE ; Start 09/04/19 at 14:58; Stop 09/04/19 at 14:58; Status DC Metoprolol Tartrate (Lopressor Vial) 5 mg 1X ONCE IVP Last administered on 09/04/19at 15:31; Start 09/04/19 at 15:15; Stop 09/04/19 at 15:16; Status DC Lorazepam (Ativan Inj) 2 mg 1X ONCE IVP Last administered on 09/04/19at 15:30; Start 09/04/19 at 15:15; Stop 09/04/19 at 15:16; Status DC Enoxaparin Sodium (Lovenox 40mg Syringe) 40 mg Q24H SQ Last administered on 09/18/19at 17:25; Start 09/04/19 at 17:00 Lorazepam (Ativan Inj) 1 mg PRN Q4HRS PRN IVP ANXIETY / AGITATION MILD-MOD Last administered on 09/18/19at 15:55; Start 09/04/19 at 19:15 Lorazepam (Ativan Inj) 2 mg PRN Q4HRS PRN IVP ANXIETY / AGITATION SEVERE Last administered on 09/19/19 07:55; Start 09/04/19 at 19:15 Fentanyl Citrate (Fentanyl 2ml Vial) 50 mcg PRN Q4HRS PRN IVP SEVERE PAIN Last administered on 09/18/19at 15:55; Start 09/05/19 at 13:15 Fentanyl Citrate (Fentanyl 2ml Vial) 25 mcg PRN Q4HRS PRN IVP MODERATE PAIN Last administered on 09/19/19at 01:14; Start 09/05/19 at 13:15 Potassium Chloride 90 meq/ Magnesium Sulfate 20 meq/ Multivitamins 10 ml/Chromium/ Copper/Manganese/ Seleni/Zn 1 ml/ Insulin Human Regular 15 unit/ Total Parenteral Nutrition/Amino Acids/Dextrose/ Fat Emulsion Intravenous 1,890 ml @ 78.75 mls/ hr TPN CONT IV Last administered on 09/05/19at 22:18; Start 09/05/19 at 22:00; Stop 09/06/19 at 21:59; Status DC Furosemide (Lasix) 40 mg 1X ONCE IVP Last administered on 09/05/19at 21:51; Start 09/05/19 at 21:45; Stop 09/05/19 at 21:48; Status DC Albumin Human 100 ml @ 100 mls/hr 1X PRN PRN IV SEE COMMENTS; Start 09/06/19 at 01:30 Furosemide (Lasix) 40 mg [id number] IVP Last administered on 09/19/19at 07:56; Start 09/06/19 at 14:00 Potassium Chloride 90 meq/ Magnesium Sulfate 20 meq/ Multivitamins 10 ml/Chromium/ Copper/Manganese/ Seleni/Zn 1 ml/ Insulin Human Regular 15 unit/ Total Parenteral Nutrition/Amino Acids/Dextrose/ Fat Emulsion Intravenous 1,800 ml @ 75 mls/hr TPN CONT IV Last administered on 09/06/19at 22:31; Start 09/06/19 at 22:00; Stop 09/07/19 at 21:59; Status DC Potassium Chloride 90 meq/ Magnesium Sulfate 20 meq/ Multivitamins 10 ml/Chromium/ Copper/Manganese/ Seleni/Zn 1 ml/ Insulin Human Regular 15 unit/ Total Parenteral Nutrition/Amino Acids/Dextrose/ Fat Emulsion Intravenous 1,800 ml @ 75 mls/hr TPN CONT IV Last administered on 09/07/19at 22:28; Start 09/07/19 at 22:00; Stop 09/08/19 at 21:59; Status DC Potassium Chloride 110 meq/ Magnesium Sulfate 20 meq/ Multivitamins 10 ml/Chromium/ Copper/Manganese/ Seleni/Zn 1 ml/ Insulin Human Regular 15 unit/ Total Parenteral Nutrition/Amino Acids/Dextrose/ Fat Emulsion Intravenous 1,800 ml @ 75 mls/hr TPN CONT IV Last administered on 09/08/19at 22:01; Start 09/08/19 at 22:00; Stop 09/09/19 at 21:59; Status DC Saliva Substitute (Biotene Moisturizing Mouth) 2 spray PRN Q15MIN PRN PO DRY MOUTH; Start 09/08/19 at 11:00 Potassium Chloride 110 meq/ Magnesium Sulfate 20 meq/ Multivitamins 10 ml/Chromium/ Copper/Manganese/ Seleni/Zn 1 ml/ Insulin Human Regular 15 unit/ Total Parenteral Nutrition/Amino Acids/Dextrose/ Fat Emulsion Intravenous 1,800 ml @ 75 mls/hr TPN CONT IV Last administered on 09/09/19at 22:21; Start 09/09/19 at 22:00; Stop 09/10/19 at 21:59; Status DC Potassium Chloride 110 meq/ Magnesium Sulfate 20 meq/ Multivitamins 10 ml/Chromium/ Copper/Manganese/ Seleni/Zn 1 ml/ Insulin Human Regular 15 unit/ Total Parenteral Nutrition/Amino Acids/Dextrose/ Fat Emulsion Intravenous 1,800 ml @ 75 mls/hr TPN CONT IV Last administered on 09/10/19at 22:04; Start 09/10/19 at 22:00; Stop 09/11/19 at 21:59; Status DC Potassium Chloride 110 meq/ Magnesium Sulfate 20 meq/ Multivitamins 10 ml/Chromium/ Copper/Manganese/ Seleni/Zn 1 ml/ Insulin Human Regular 15 unit/ Total Parenteral Nutrition/Amino Acids/Dextrose/ Fat Emulsion Intravenous 1,800 ml @ 75 mls/hr TPN CONT IV Last administered on 09/11/19at 22:48; Start 09/11/19 at 22:00; Stop 09/12/19 at 21:59; Status DC Potassium Chloride 70 meq/ Magnesium Sulfate 20 meq/ Multivitamins 10 ml/Chromium/ Copper/Manganese/ Seleni/Zn 1 ml/ Insulin Human Regular 15 unit/ Total Parenteral Nutrition/Amino Acids/Dextrose/ Fat Emulsion Intravenous 1,800 ml @ 75 mls/hr TPN CONT IV Last administered on 09/12/19at 21:39; Start 09/12/19 at 22:00; Stop 09/13/19 at 21:59; Status DC Meropenem 500 mg/ Sodium Chloride 50 ml @ 100 mls/hr Q6HRS IV Last administered on 09/14/19at 06:02; Start 09/12/19 at 18:00; Stop 09/14/19 at 09:59; Status DC Barium Sulfate (Varibar Thin Liquid Apple) 148 gm 1X ONCE PO ; Start 09/13/19 at 11:45; Stop 09/13/19 at 11:49; Status DC Potassium Chloride 70 meq/ Magnesium Sulfate 20 meq/ Multivitamins 10 ml/Chromium/ Copper/Manganese/ Seleni/Zn 1 ml/ Insulin Human Regular 15 unit/ Total Parenteral Nutrition/Amino Acids/Dextrose/ Fat Emulsion Intravenous 1,800 ml @ 75 mls/hr TPN CONT IV Last administered on 09/13/19at 22:27; Start 09/13/19 at 22:00; Stop 09/14/19 at 21:59; Status DC Piperacillin Sod/ Tazobactam Sod 3.375 gm/Sodium Chloride 50 ml @ 100 mls/hr Q6HRS IV Last administered on 09/19/19at 05:34; Start 09/14/19 at 12:00 Potassium Chloride 70 meq/ Magnesium Sulfate 20 meq/ Multivitamins 10 ml/Chromium/ Copper/Manganese/ Seleni/Zn 1 ml/ Insulin Human Regular 15 unit/ Total Parenteral Nutrition/Amino Acids/Dextrose/ Fat Emulsion Intravenous 1,800 ml @ 75 mls/hr TPN CONT IV Last administered on 09/14/19at 22:03; Start 09/14/19 at 22:00; Stop 09/15/19 at 21:59; Status DC Potassium Chloride 70 meq/ Magnesium Sulfate 20 meq/ Multivitamins 10 ml/Chromium/ Copper/Manganese/ Seleni/Zn 1 ml/ Insulin Human Regular 15 unit/ Total Parenteral Nutrition/Amino Acids/Dextrose/ Fat Emulsion Intravenous 1,800 ml @ 75 mls/hr TPN CONT IV Last administered on 09/15/19at 22:33; Start 09/15/19 at 22:00; Stop 09/16/19 at 21:59; Status DC Potassium Chloride 70 meq/ Magnesium Sulfate 20 meq/ Multivitamins 10 ml/Chromium/ Copper/Manganese/ Seleni/Zn 1 ml/ Insulin Human Regular 15 unit/ Total Parenteral Nutrition/Amino Acids/Dextrose/ Fat Emulsion Intravenous 1,800 ml @ 75 mls/hr TPN CONT IV Last administered on 09/16/19at 23:13; Start 09/16/19 at 22:00; Stop 09/17/19 at 21:59; Status DC Potassium Chloride 80 meq/ Magnesium Sulfate 20 meq/ Multivitamins 10 ml/Chromium/ Copper/Manganese/ Seleni/Zn 1 ml/ Insulin Human Regular 15 unit/ Total Parenteral Nutrition/Amino Acids/Dextrose/ Fat Emulsion Intravenous 1,800 ml @ 75 mls/hr TPN CONT IV Last administered on 09/17/19at 22:30; Start 09/17/19 at 22:00; Stop 09/18/19 at 21:59; Status DC Potassium Chloride 80 meq/ Magnesium Sulfate 20 meq/ Multivitamins 10 ml/Chromium/ Copper/Manganese/ Seleni/Zn 1 ml/ Insulin Human Regular 15 unit/ Total Parenteral Nutrition/Amino Acids/Dextrose/ Fat Emulsion Intravenous 1,800 ml @ 75 mls/hr TPN CONT IV Last administered on 09/18/19at 21:54; Start 09/18/19 at 22:00; Stop 09/19/19 at 21:59 Potassium Chloride/Water 100 ml @ 100 mls/hr 1X ONCE IV Last administered on 09/19/19at 10:15; Start 09/19/19 at 10:00; Stop 09/19/19 at 10:59 Active Scripts Active Reported Bisoprolol Fumarate 5 Mg Tablet 10 Mg PO DAILY Vitals/I & O Vital Sign - Last 24 Hours 09/18/19 09/18/19 09/18/19 09/18/19 10:54 11:00 14:36 15:00 Temp 99.1 98.0 99.1 98.0 Pulse 136 141 Resp 43 45 B/P (MAP) 140/88 (105) 127/72 (90) Pulse Ox 95 95 95 92 O2 Delivery Room Air Room Air Room Air Room Air 09/18/19 09/18/19 09/18/19 09/18/19 15:55 16:49 19:00 20:00 Temp 98.3 98.3 Pulse 140 Resp 33 32 35 B/P (MAP) 138/78 (98) Pulse Ox 95 95 96 O2 Delivery Room Air Room Air Tracheal Collar Trach Collar O2 Flow Rate 8.0 8.0 8.0 8.0 09/18/19 09/19/19 09/19/19 09/19/19 23:02 01:14 01:44 03:00 Temp 99.3 98.3 99.3 98.3 Pulse 138 131 Resp 41 48 42 48 B/P (MAP) 139/92 (108) 128/82 (97) Pulse Ox 95 95 O2 Delivery Room Air Room Air Room Air Room Air 09/19/19 09/19/19 09/19/19 07:00 08:00 08:10 Temp 99.4 99.4 Pulse 138 Resp 32 48 B/P (MAP) 184/99 (127) 160/79 (106) Pulse Ox 91 100 O2 Delivery Tracheal Collar Trach Collar Tracheal Collar O2 Flow Rate 10.0 Intake and Output 09/18/19 09/18/19 09/19/19 15:00 23:00 07:00 Intake Total 923 ml 0 ml Output Total 550 ml 250 ml 650 ml Balance -550 ml 673 ml -650 ml ABI AHN MD Sep 19, 2019 10:21
--- NOTE | 2019-09-19 10:57 | PDOC ---
Objective: Objective: Reviewed chart - drains removed yesterday, drainage from site. Vital Signs: Vital Signs Date Time Temp Pulse Resp B/P (MAP) Pulse Ox O2 Delivery O2 Flow Rate FiO2 09/19/19 08:10 48 160/79 (106) 100 Tracheal Collar 09/19/19 08:00 10.0 09/19/19 07:00 99.4 138 99.4 Labs: Laboratory Tests Test 09/18/19 12:23 09/18/19 17:24 09/19/19 00:04 09/19/19 05:30 Glucose (Fingerstick) 225 mg/dL 244 mg/dL 175 mg/dL White Blood Count 12.6 x10^3/uL Red Blood Count 3.07 x10^6/uL Hemoglobin 8.4 g/dL Hematocrit 26.7 % Mean Corpuscular Volume 87 fL Mean Corpuscular Hemoglobin 27 pg Mean Corpuscular Hemoglobin Concent 31 g/dL Red Cell Distribution Width 19.3 % Platelet Count 554 x10^3/uL Neutrophils (%) (Auto) 68 % Lymphocytes (%) (Auto) 20 % Monocytes (%) (Auto) 10 % Eosinophils (%) (Auto) 1 % Basophils (%) (Auto) 0 % Neutrophils # (Auto) 8.6 x10^3/uL Lymphocytes # (Auto) 2.6 x10^3/uL Monocytes # (Auto) 1.3 x10^3/uL Eosinophils # (Auto) 0.1 x10^3/uL Basophils # (Auto) 0.0 x10^3/uL Sodium Level 145 mmol/L Potassium Level 3.2 mmol/L Chloride Level 106 mmol/L Carbon Dioxide Level 29 mmol/L Anion Gap 10 Blood Urea Nitrogen 34 mg/dL Creatinine 1.1 mg/dL Estimated GFR (Cockcroft-Gault) 52.8 Glucose Level 188 mg/dL Calcium Level 9.9 mg/dL Phosphorus Level 3.6 mg/dL Test 09/19/19 05:48 Glucose (Fingerstick) 189 mg/dL ORDERED: AEROBIC CULT GS GRAM STAIN Final Final ND Not Tested AEROBIC CULTURE Preliminary Preliminary No Growth on 09/19/19 at 0955 Imaging: CXR 09/16 IMPRESSION: 1. Small bilateral pleural effusions are mildly improved. PE: HEENT: trach collar LUNGS: tachypneic HEART: tachycardic ABD: soft NEURO/PSYCH: drowsy A/P: Complicated pancreatitis -- Seems worse today, continue support. Justicifation of Admission Dx: Justifications for Admission: Justification of Admission Dx: Yes CYNDEE FALCON Sep 19, 2019 10:56
--- NOTE | 2019-09-19 11:26 | PDOC ---
[facility] [facility] PROGRESS NOTE Chief Complaint Chief Complaint Acute hypoxic Respiratory failure requiring mechanical ventilation (now extubated for several days but still with tracheostomy) Tracheostomy bilateral pleural effusions/pulm edema Sepsis Severe Acute gallstone pancreatitis (not a surgical candidate at this time) with necrosis Acute kidney failure now requiring dialysis Salpingitis Gallstones (Calculus of gallbladder with acute cholecystitis without obstruc tion) HTN Leukocytosis Hypoxia Uterine fibroid Intractable pain Intractable nausea Covid 19 negative. Acute on chronic anemia EEG: No seizure activityFever - better currently - intermittent could be from underlying pancreatitis blood cults 08/21 - neg so far ? Ileus with vomiting Abd distention - U/S and CT reviewed s/p 0.4 L of opaque, debris-containing ascites was removed 08/23 Acute pancreatitis with persistent necrosis - 08/14 status post KAYLIN drain placement + C paropsilosis. s/p additional drains 08/25 Anemia - S/p PRBCs Cholelithiasis with thickening of the gallbladder wall. Leucocytosis improving JUANA, hyperkalemia, Metabolic acidosis off dialysis Acute hypoxic resp failure ,bilateral pleural effusion and atelectasis hypocalcemia Prediabetes HTN s/p trach ESRD on HD Hyperglycemia History of Present Illness History of Present Illness 09/19/2019 Patient seen and examined in the ICU She appears extremely ill She is tachypneic at 35 respirations per minute and tachycardic at 132 bpm She is extremely encephalopathic and shaky She appears clammy Chart reviewed Discussed with RN Prognosis extremely guarded at best 09/18/2019 Patient still in ICU Resting with no apparent distress Chart reviewed 09/17/2019 Patient seen and examined in the ICU She is wiping her face with a cough Discussed with RN Chart reviewed We hope to get her out of the ICU later today if possible 09/16/2019 Patient seen and examined in the ICU once again She is back on NG suction On IV Zosyn Has IV TPN Sedated with Precedex but anxious still Appears somewhat clammy and pale Chart reviewed Discussed with RN She remains critically ill 09/15/2019 Patient seen and examined in the ICU She has an NG that is clamped we are hoping to start some clear liquids but she looks quite ill She is on IV TPN Meropenem changed to IV Zosyn (agree) She has Lind to bedside drainage She is semi-sedated with Precedex Chart reviewed Discussed with RN She remains critically ill Seen bedside. Hb 8. She was just a bit hypoxic, had a mucous plug suctioned. Able to vocalize well with speaking valve, tells me we are being very hard on her and she would like to be drugged back to sleep. She wants to wake up and feel better. On trach shield, T max 100.4. afebrile this a.m. 09/13/2019 Patient seen and examined in the ICU She is up in the chair very frail trying to talk a little shaky Discussed with RN Chart reviewed 09/12/2019 Patient seen and examined in the ICU Patient up in the chair Having a severe coughing episode with a lot of phlegm coming out of her tracheostomy Discussed with RN Discussed with physical therapy Chart reviewed 09/10,. feels well, has been out of room in wheelchair no complaint, still weak, some with not wanting to wear her valve on trach cont other, may be able to work with speech tomorrow, erum[place]allow OK to try, 09/09, anxiety is up today, she dislikes the valve still, shower and outside today . 09/08 she doesnt want to wear her passy-fantasma valve, discussed str and plan with her. speech following, needs swallow study, but needs to wear her valve longer, cont current able to walk some, walker 09/07 stronger, better, we discussed better oral care she would like to try swallow study, wants to try to eat, speech is following 09/07/2019 She remains in the ICU sitting up and working with OT, getting better if limit pain meds, may do better off the vent, Nurses trying to suction her, that is also improved, Chart reviewed 09/06/2019 Patient seen and examined in the ICU She had an episode yesterday of tachycardia and severe agitation we gave her some Ativan After that she seemed to have stroke symptoms but now that the Ativan has wore off her stroke symptoms have resolved She is on IV meropenem and daptomycin and micafungin Chart reviewed Discussed with RN Patient is still critically ill BRIEF OPERATIVE NOTE Pre-Op Diagnosis Pancreatitis with pseudocysts, suspected infection Post-Op Diagnosis same Procedure Performed CT abdominal Drains x 3 Surgeon Tesfaye Anesthesia Type: Conscious Sedation Findings 3 abdominal drains, 14F, with turbid pancreatic fluid and necrotic debris in each. Complications No immediate 08/26: Patient today somewhat restless and having bilious secretions from ET tube, imaging studies ordered, discussed with cassandra consultant. Pretty poor prognosis, hopefully is not a fistula, poor surgical candidate. 08/27: Imaging with no acute events, she seems more stable today compared to yesterday. Encouraged as much activity as possible patient at high risk for severe depression. Vitals/I&O Vitals/I&O: Vital Signs Date Time Temp Pulse Resp B/P (MAP) Pulse Ox O2 Delivery O2 Flow Rate FiO2 09/19/19 11:00 99.4 135 32 155/97 (116) 95 Tracheal Collar 10.0 99.4 I & O 09/18/19 09/18/19 09/19/19 15:00 23:00 07:00 Intake Total 923 ml 0 ml Output Total 550 ml 250 ml 650 ml Balance -550 ml 673 ml -650 ml Physical Exam Physical Exam: GENERAL: Propped up in bed,, weak appearing see above HEENT: Oral cavity clear, NGT NECK: Trach present LUNGS: Clear, nonlabored HEART: S1, S2, regular ABDOMEN: mod distention, bowel sounds present, + KAYLIN drains x 3 : Lind (08/01) EXTREMITIES: Generalized edema. no cyanosis SKIN: Cool clammy and pale UTILIZATION REVIEW NURSE:Opens eyes to voice, very weak LUE-PICC (09/15) without signsof complications General: Alert, Cooperative, No acute distress Heart: Regular rate, Normal S1, Normal S2, No murmurs, Gallops Lungs: Other (Good air movement but having a lot of productive sputum from her tracheostomy site) Abdomen: Soft Extremities: No clubbing, No cyanosis, No edema, Normal pulses, No tenderness/swelling Skin: Other (warm, dry) Labs Labs: Laboratory Tests Test 09/18/19 12:23 09/18/19 17:24 09/19/19 00:04 09/19/19 05:30 Glucose (Fingerstick) 225 mg/dL (70-99) 244 mg/dL (70-99) 175 mg/dL (70-99) White Blood Count 12.6 x10^3/uL (4.0-11.0) Red Blood Count 3.07 x10^6/uL (3.50-5.40) Hemoglobin 8.4 g/dL (12.0-15.5) Hematocrit 26.7 % (36.0-47.0) Mean Corpuscular Volume 87 fL (79-100) Mean Corpuscular Hemoglobin 27 pg (25-35) Mean Corpuscular Hemoglobin Concent 31 g/dL (31-37) Red Cell Distribution Width 19.3 % (11.5-14.5) Platelet Count 554 x10^3/uL (140-400) Neutrophils (%) (Auto) 68 % (31-73) Lymphocytes (%) (Auto) 20 % (24-48) Monocytes (%) (Auto) 10 % (0-9) Eosinophils (%) (Auto) 1 % (0-3) Basophils (%) (Auto) 0 % (0-3) Neutrophils # (Auto) 8.6 x10^3/uL (1.8-7.7) Lymphocytes # (Auto) 2.6 x10^3/uL (1.0-4.8) Monocytes # (Auto) 1.3 x10^3/uL (0.0-1.1) Eosinophils # (Auto) 0.1 x10^3/uL (0.0-0.7) Basophils # (Auto) 0.0 x10^3/uL (0.0-0.2) Sodium Level 145 mmol/L (136-145) Potassium Level 3.2 mmol/L (3.5-5.1) Chloride Level 106 mmol/L (98-107) Carbon Dioxide Level 29 mmol/L (21-32) Anion Gap 10 (6-14) Blood Urea Nitrogen 34 mg/dL (7-20) Creatinine 1.1 mg/dL (0.6-1.0) Estimated GFR (Cockcroft-Gault) 52.8 Glucose Level 188 mg/dL (70-99) Calcium Level 9.9 mg/dL (8.5-10.1) Phosphorus Level 3.6 mg/dL (2.6-4.7) Test 09/19/19 05:48 Glucose (Fingerstick) 189 mg/dL (70-99) Review of Systems Review of Systems: Unable to obtain she is too weak to talk this morning Assessment and Plan Assessmemt and Plan Problems Medical Problems: (1) Acute pancreatitis Status: Acute (2) Cholelithiasis Status: Acute Acute hypoxic Respiratory failure requiring mechanical ventilation was initially intubated on 07/10 was off for couple of days now back on Severe gallstone pancreatitis (not a surgical candidate at this time) with necrosis Tracheostomy bilateral pleural effusions/pulm edema Severe sepsis Acute kidney failure now requiring dialysis Salpingitis Gallstones (Calculus of gallbladder with acute cholecystitis without obstruction) HTN Leukocytosis Hypoxia Uterine fibroid Intractable pain Intractable nausea Covid 19 negative. Acute on chronic anemia EEG: No seizure activityFever - better currently - intermittent could be from underlying pancreatitis blood cults 08/21 - neg so far ? Ileus with vomiting Abd distention - U/S and CT reviewed s/p 0.4 L of opaque, debris-containing ascites was removed 08/23 Acute pancreatitis with persistent necrosis - 08/14 status post KAYLIN drain placement + C paropsilosis. s/p additional drains 08/25 Anemia - S/p PRBCs Cholelithiasis with thickening of the gallbladder wall. Leucocytosis improving JUANA, hyperkalemia, Metabolic acidosis off dialysis Acute hypoxic resp failure ,bilateral pleural effusion and atelectasis hypocalcemia Prediabetes HTN s/p trach ESRD on HD Hyperglycemia Plan ICU monitoring Wound care Hold off on Ativan for now as she gets too weak with it Humidified O2 via nasal cannula for now but we can use trach shield as backup NG suctioning Nebulizers Continue IV antibiotics and micafungin Sedation with Precedex PRN TPN protocol Continue Lind to bedside drainage Tracheostomy care Hope to eventually move towards decannulation (we have a speaking valve for now) Trend labs Appreciate subspecialist input I am still very concerned about her long-term prognosis ! (she scored a 9 on Karina criteria 4 weeks ago). She is critically ill Total time 32 Comment Review of Relevant I have reviewed the following items kolby (where applicable) has been applied. Medications: Current Medications Medications (Trade) Dose Ordered Sig/Yvon Route PRN Reason Start Time Stop Time Status Last Admin Dose Admin Potassium Chloride 80 meq/ Magnesium Sulfate 20 meq/ Multivitamins 10 ml/Chromium/ Copper/Manganese/ Seleni/Zn 1 ml/ Insulin Human Regular 15 unit/ Total Parenteral Nutrition/Amino Acids/Dextrose/ Fat Emulsion Intravenous 1,800 ml @ 75 mls/hr TPN CONT IV 09/18/19 22:00 09/19/19 21:59 09/18/19 21:54 Potassium Chloride/Water 100 ml @ 100 mls/hr 1X ONCE IV 09/19/19 10:00 09/19/19 10:59 DC 09/19/19 10:15 Justicifation of Admission Dx: Justifications for Admission: Justification of Admission Dx: Yes BEBO KIRBY III DO Sep 19, 2019 11:26
--- NOTE | 2019-09-19 11:27 | PDOC ---
PULMONARY PROGRESS NOTES Subjective Patient intubated on 07/10 , s/p trach /, has cough Remains on TS, increase secretions Vitals Vital Signs Date Time Temp Pulse Resp B/P (MAP) Pulse Ox O2 Delivery O2 Flow Rate FiO2 09/19/19 11:00 99.4 135 32 155/97 (116) 95 Tracheal Collar 10.0 99.4 ROS: No Chest Pain, No Abdominal Pain, No Increase Cough General: Alert, No acute distress HEENT: Other (trach midline ) Lungs: Other (Good air movement but having a lot of productive sputum from her tracheostomy site) Cardiovascular: S1, S2 Abdomen: Soft, Non-tender Neuro Exam: Alert Extremities: Other (+3 generalized edema ) Skin: Warm, Dry Labs Laboratory Tests Test 09/17/19 12:06 09/17/19 16:27 09/17/19 17:57 09/18/19 00:04 Glucose (Fingerstick) 206 mg/dL (70-99) 88 mg/dL (70-99) 112 mg/dL (70-99) 189 mg/dL (70-99) Test 09/18/19 06:04 09/18/19 12:23 09/18/19 17:24 09/19/19 00:04 Glucose (Fingerstick) 219 mg/dL (70-99) 225 mg/dL (70-99) 244 mg/dL (70-99) 175 mg/dL (70-99) Test 09/19/19 05:30 09/19/19 05:48 White Blood Count 12.6 x10^3/uL (4.0-11.0) Red Blood Count 3.07 x10^6/uL (3.50-5.40) Hemoglobin 8.4 g/dL (12.0-15.5) Hematocrit 26.7 % (36.0-47.0) Mean Corpuscular Volume 87 fL (79-100) Mean Corpuscular Hemoglobin 27 pg (25-35) Mean Corpuscular Hemoglobin Concent 31 g/dL (31-37) Red Cell Distribution Width 19.3 % (11.5-14.5) Platelet Count 554 x10^3/uL (140-400) Neutrophils (%) (Auto) 68 % (31-73) Lymphocytes (%) (Auto) 20 % (24-48) Monocytes (%) (Auto) 10 % (0-9) Eosinophils (%) (Auto) 1 % (0-3) Basophils (%) (Auto) 0 % (0-3) Neutrophils # (Auto) 8.6 x10^3/uL (1.8-7.7) Lymphocytes # (Auto) 2.6 x10^3/uL (1.0-4.8) Monocytes # (Auto) 1.3 x10^3/uL (0.0-1.1) Eosinophils # (Auto) 0.1 x10^3/uL (0.0-0.7) Basophils # (Auto) 0.0 x10^3/uL (0.0-0.2) Sodium Level 145 mmol/L (136-145) Potassium Level 3.2 mmol/L (3.5-5.1) Chloride Level 106 mmol/L (98-107) Carbon Dioxide Level 29 mmol/L (21-32) Anion Gap 10 (6-14) Blood Urea Nitrogen 34 mg/dL (7-20) Creatinine 1.1 mg/dL (0.6-1.0) Estimated GFR (Cockcroft-Gault) 52.8 Glucose Level 188 mg/dL (70-99) Calcium Level 9.9 mg/dL (8.5-10.1) Phosphorus Level 3.6 mg/dL (2.6-4.7) Glucose (Fingerstick) 189 mg/dL (70-99) Laboratory Tests Test 09/18/19 12:23 09/18/19 17:24 09/19/19 00:04 09/19/19 05:30 Glucose (Fingerstick) 225 mg/dL (70-99) 244 mg/dL (70-99) 175 mg/dL (70-99) White Blood Count 12.6 x10^3/uL (4.0-11.0) Red Blood Count 3.07 x10^6/uL (3.50-5.40) Hemoglobin 8.4 g/dL (12.0-15.5) Hematocrit 26.7 % (36.0-47.0) Mean Corpuscular Volume 87 fL (79-100) Mean Corpuscular Hemoglobin 27 pg (25-35) Mean Corpuscular Hemoglobin Concent 31 g/dL (31-37) Red Cell Distribution Width 19.3 % (11.5-14.5) Platelet Count 554 x10^3/uL (140-400) Neutrophils (%) (Auto) 68 % (31-73) Lymphocytes (%) (Auto) 20 % (24-48) Monocytes (%) (Auto) 10 % (0-9) Eosinophils (%) (Auto) 1 % (0-3) Basophils (%) (Auto) 0 % (0-3) Neutrophils # (Auto) 8.6 x10^3/uL (1.8-7.7) Lymphocytes # (Auto) 2.6 x10^3/uL (1.0-4.8) Monocytes # (Auto) 1.3 x10^3/uL (0.0-1.1) Eosinophils # (Auto) 0.1 x10^3/uL (0.0-0.7) Basophils # (Auto) 0.0 x10^3/uL (0.0-0.2) Sodium Level 145 mmol/L (136-145) Potassium Level 3.2 mmol/L (3.5-5.1) Chloride Level 106 mmol/L (98-107) Carbon Dioxide Level 29 mmol/L (21-32) Anion Gap 10 (6-14) Blood Urea Nitrogen 34 mg/dL (7-20) Creatinine 1.1 mg/dL (0.6-1.0) Estimated GFR (Cockcroft-Gault) 52.8 Glucose Level 188 mg/dL (70-99) Calcium Level 9.9 mg/dL (8.5-10.1) Phosphorus Level 3.6 mg/dL (2.6-4.7) Test 09/19/19 05:48 Glucose (Fingerstick) 189 mg/dL (70-99) Medications Active Scripts Medications Dose Route/Sig Max Daily Dose Days Date Category Bisoprolol Fumarate 5 Mg Tablet 10 Mg PO DAILY 07/04/19 Reported Comments cxr reviewed, Impression . IMPRESSION: 1. Acute hypoxemic respiratory failure secondary to ARDS status post trach, 2. Gallstone pancreatitis 3. Severe metabolic acidosis.stable 4. Acute kidney injury-stable, Off HD-- continue to improve 5. Acute gallstone pancreatitis. 6. Hypoalbuminemia. 7. Moderate persistent effusions, s/p left thora 08/29 8. Fever- Per ID, per surgery--resolved 9. Chronic anemia 10. Covid 19 testing negative 11. Moderate to large ascites-S/P paracentisis 12.S/P paracentisis with 4 liters removed on 08/03/19 13. S/P IR drain placement on 08/26/2019 Plan . 1.Continue supplemental oxygen via trach shield-- PMV/capping as tolerated/ prn suction 2. s/p thoracentesis, 08/29, 3 litres removed 3. Follow surgery recs-- S/P 3 drain placed in IR on 08/26/2019 4. Follow ID recs for ABX 5. Follow nephrology recs 6. Continue TPN DVT/GI PPX: heparin SQ/ protonix PT/OT D/W RN and pt CODE:FULL VINAYAK LANDRUM MD Sep 19, 2019 11:27
--- NOTE | 2019-09-19 12:38 | NUR ---
SS following up with discharge planning. SS reviewed pt chart and discussed with pt RN. Pt is currently on trach collar 8-10 liters. Pt had KAYLIN drains removed. Pt has louis, TPN, and IV Zosyn. PT/OT continuing to work with pt. SS will continue to follow for discharge planning.
[2019-09-19] MEDS: TPN PER PHARMACY MC PRN (13:03)
--- NOTE | 2019-09-19 13:03 | NUR ---
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, 8 inches Weight: 71.3 kg Current diet: NPO LABS: Sodium: 145 Potassium: 3.2 Chloride: 106 Calcium: 9.9 Corrected Calcium: 11.50 Magnesium: 2.2 CO2: 29 SCr: 1.1 Glucose: 175-197 Albumin: 2.0 AST: 15 ALT: 14 TPN FORMULA: TPN TYPE: Central Continuous AMINO ACIDS: 75 gm DEXTROSE: 250 gm LIPIDS: 40 gm POTASSIUM CHLORIDE: 90 mEq MAGNESIUM: 20 mEq INSULIN: 20 units MULTIPLE VITAMIN: 10 ml TRACE ELEMENTS: 1 ml(s) TPN PLAN: K replaced with KCL 20 meq IVPB x 1 dose. KCl increased in TPN to 90 meq. BG elevated- increased insulin in TPN to 20 units. -BMP in AM. R: Change TPN as noted above. Will monitor electrolytes, glucose, and tolerance to TPN. MIKAYLA CHU FORMERLY [facility] [place], 09/19/19 [id number]
[2019-09-19] MEDS: ACETAMINOPHEN 650 MG SUPP.RECT. PR PRN (15:30)
[2019-09-19] MEDS: ENOXAPARIN 40 MG/0.4 ML SYRINGE. SQ SCH (17:32)
[2019-09-19] MEDS ORDERED: TOTAL PARENTERAL NUTRITION IV SCH ×8 (22:00)
[2019-09-19] MEDS ORDERED: AMINO ACID IV SCH ×8 (22:00)
[2019-09-19] MEDS ORDERED: [UNRECOGNIZED DRUG - OTHER] IV SCH ×8 (22:00)
[2019-09-19] MEDS ORDERED: DEXTROSE 70% IV SCH ×8 (22:00)
[2019-09-20] VITALS (8 sets, daily range): BP systolic 115–155; BP diastolic 63–98
[2019-09-20] MEDS: PIPERACILLIN/TAZOBACTAM 3.375 GM in IV NORMAL SALINE 50ML 50 ML IV SCH ×4 (00:35→16:59)
[2019-09-20] MEDS: INSULIN LISPRO 300 UNITS/3 ML VIAL. SQ SCH ×4 (00:46→17:23)
[2019-09-20 06:42] LABS: CREATININE 1.1 mg/dL (0.6-1.0); GFR 52.8; POTASSIUM 3.7 mmol/L (3.5-5.1)
[2019-09-20] MEDS: FUROSEMIDE 40 MG/4 ML VIAL. IVP SCH ×2 (08:36→16:59)
[2019-09-20] MEDS: PANTOPRAZOLE IV PUSH 40 MG VIAL. IVP SCH (08:36)
--- NOTE | 2019-09-20 10:20 | PDOC ---
[facility] [facility] PROGRESS NOTE Chief Complaint Chief Complaint Acute hypoxic Respiratory failure requiring mechanical ventilation (now extubated for several days but still with tracheostomy) Tracheostomy bilateral pleural effusions/pulm edema Sepsis Severe Acute gallstone pancreatitis (not a surgical candidate at this time) with necrosis Acute kidney failure now requiring dialysis Salpingitis Gallstones (Calculus of gallbladder with acute cholecystitis without obstruc tion) HTN Leukocytosis Hypoxia Uterine fibroid Intractable pain Intractable nausea Covid 19 negative. Acute on chronic anemia EEG: No seizure activityFever - better currently - intermittent could be from underlying pancreatitis blood cults 08/21 - neg so far ? Ileus with vomiting Abd distention - U/S and CT reviewed s/p 0.4 L of opaque, debris-containing ascites was removed 08/23 Acute pancreatitis with persistent necrosis - 08/14 status post KAYLIN drain placement + C paropsilosis. s/p additional drains 08/25 Anemia - S/p PRBCs Cholelithiasis with thickening of the gallbladder wall. Leucocytosis improving JUANA, hyperkalemia, Metabolic acidosis off dialysis Acute hypoxic resp failure ,bilateral pleural effusion and atelectasis hypocalcemia Prediabetes HTN s/p trach ESRD on HD Hyperglycemia History of Present Illness History of Present Illness 09/20/2019 Patient seen and examined in the ICU She is a little more alert today but still quite ill Appears clammy and pale and depressed/anxious Discussed with RN Chart reviewed 09/19/2019 Patient seen and examined in the ICU She appears extremely ill She is tachypneic at 35 respirations per minute and tachycardic at 132 bpm She is extremely encephalopathic and shaky She appears clammy Chart reviewed Discussed with RN Prognosis extremely guarded at best 09/18/2019 Patient still in ICU Resting with no apparent distress Chart reviewed 09/17/2019 Patient seen and examined in the ICU She is wiping her face with a cough Discussed with RN Chart reviewed We hope to get her out of the ICU later today if possible 09/16/2019 Patient seen and examined in the ICU once again She is back on NG suction On IV Zosyn Has IV TPN Sedated with Precedex but anxious still Appears somewhat clammy and pale Chart reviewed Discussed with RN She remains critically ill 09/15/2019 Patient seen and examined in the ICU She has an NG that is clamped we are hoping to start some clear liquids but she looks quite ill She is on IV TPN Meropenem changed to IV Zosyn (agree) She has Lind to bedside drainage She is semi-sedated with Precedex Chart reviewed Discussed with RN She remains critically ill Seen bedside. Hb 8. She was just a bit hypoxic, had a mucous plug suctioned. Able to vocalize well with speaking valve, tells me we are being very hard on her and she would like to be drugged back to sleep. She wants to wake up and feel better. On trach shield, T max 100.4. afebrile this a.m. 09/13/2019 Patient seen and examined in the ICU She is up in the chair very frail trying to talk a little shaky Discussed with RN Chart reviewed 09/12/2019 Patient seen and examined in the ICU Patient up in the chair Having a severe coughing episode with a lot of phlegm coming out of her tracheostomy Discussed with RN Discussed with physical therapy Chart reviewed 09/10,. feels well, has been out of room in wheelchair no complaint, still weak, some with not wanting to wear her valve on trach cont other, may be able to work with speech tomorrow, erum[place]anna OK to try, 09/09, anxiety is up today, she dislikes the valve still, shower and outside today . 09/08 she doesnt want to wear her passy-fantasma valve, discussed str and plan with her. speech following, needs swallow study, but needs to wear her valve longer, cont current able to walk some, walker 09/07 stronger, better, we discussed better oral care she would like to try swallow study, wants to try to eat, speech is following 09/07/2019 She remains in the ICU sitting up and working with OT, getting better if limit pain meds, may do better off the vent, Nurses trying to suction her, that is also improved, Chart reviewed 09/06/2019 Patient seen and examined in the ICU She had an episode yesterday of tachycardia and severe agitation we gave her some Ativan After that she seemed to have stroke symptoms but now that the Ativan has wore off her stroke symptoms have resolved She is on IV meropenem and daptomycin and micafungin Chart reviewed Discussed with RN Patient is still critically ill BRIEF OPERATIVE NOTE Pre-Op Diagnosis Pancreatitis with pseudocysts, suspected infection Post-Op Diagnosis same Procedure Performed CT abdominal Drains x 3 Surgeon Tesfaye Anesthesia Type: Conscious Sedation Findings 3 abdominal drains, 14F, with turbid pancreatic fluid and necrotic debris in each. Complications No immediate 08/26: Patient today somewhat restless and having bilious secretions from ET tube, imaging studies ordered, discussed with agricultural consultant. Pretty poor prognosis, hopefully is not a fistula, poor surgical candidate. 08/27: Imaging with no acute events, she seems more stable today compared to yesterday. Encouraged as much activity as possible patient at high risk for severe depression. Vitals/I&O Vitals/I&O: Vital Signs Date Time Temp Pulse Resp B/P (MAP) Pulse Ox O2 Delivery O2 Flow Rate FiO2 09/20/19 03:30 99.1 125 40 133/70 (91) 99 Tracheal Collar 10.0 99.1 I & O 09/19/19 09/19/19 09/20/19 14:59 22:59 06:59 Intake Total 475 ml 650 ml Output Total 1150 ml 505 ml Balance -675 ml 145 ml Physical Exam Physical Exam: GENERAL: Propped up in bed,, weak appearing see above HEENT: Oral cavity clear, NGT NECK: Trach present LUNGS: Clear, nonlabored HEART: S1, S2, regular ABDOMEN: mod distention, bowel sounds present, + KAYLIN drains x 3 : Lind (08/01) EXTREMITIES: Generalized edema. no cyanosis SKIN: Cool clammy and pale LOCKSTITCH [employer]EVE [employer]KER:Opens eyes to voice, very weak LUE-PICC (09/15) without signsof complications General: Alert, Cooperative, No acute distress Heart: Regular rate, Normal S1, Normal S2, No murmurs, Gallops Lungs: Other (Good air movement but having a lot of productive sputum from her tracheostomy site) Abdomen: Soft Extremities: No clubbing, No cyanosis, No edema, Normal pulses, No tenderness /swelling Skin: Other (warm, dry) Labs Labs: Laboratory Tests Test 09/19/19 12:14 09/19/19 17:42 09/20/19 00:41 09/20/19 06:12 Glucose (Fingerstick) 197 mg/dL (70-99) 183 mg/dL (70-99) 210 mg/dL (70-99) Sodium Level 147 mmol/L (136-145) Potassium Level 3.7 mmol/L (3.5-5.1) Chloride Level 109 mmol/L (98-107) Carbon Dioxide Level 29 mmol/L (21-32) Anion Gap 9 (6-14) Blood Urea Nitrogen 37 mg/dL (7-20) Creatinine 1.1 mg/dL (0.6-1.0) Estimated GFR (Cockcroft-Gault) 52.8 Glucose Level 163 mg/dL (70-99) Calcium Level 10.0 mg/dL (8.5-10.1) Test 09/20/19 06:21 Glucose (Fingerstick) 163 mg/dL (70-99) Review of Systems Review of Systems: Complains of anxiety complains of weakness can barely talk Assessment and Plan Assessmemt and Plan Problems Medical Problems: (1) Acute pancreatitis Status: Acute (2) Cholelithiasis Status: Acute Acute hypoxic Respiratory failure requiring mechanical ventilation was initially intubated on 07/10 was off for couple of days now back on Severe gallstone pancreatitis (not a surgical candidate at this time) with necrosis Tracheostomy bilateral pleural effusions/pulm edema Severe sepsis Acute kidney failure now requiring dialysis Salpingitis Gallstones (Calculus of gallbladder with acute cholecystitis without obstruction) HTN Leukocytosis Hypoxia Uterine fibroid Intractable pain Intractable nausea Covid 19 negative. Acute on chronic anemia EEG: No seizure activityFever - better currently - intermittent could be from underlying pancreatitis blood cults 08/21 - neg so far ? Ileus with vomiting Abd distention - U/S and CT reviewed s/p 0.4 L of opaque, debris-containing ascites was removed 08/23 Acute pancreatitis with persistent necrosis - 08/14 status post KAYLIN drain placement + C paropsilosis. s/p additional drains 08/25 Anemia - S/p PRBCs Cholelithiasis with thickening of the gallbladder wall. Leucocytosis improving JUANA, hyperkalemia, Metabolic acidosis off dialysis Acute hypoxic resp failure ,bilateral pleural effusion and atelectasis hypocalcemia Prediabetes HTN s/p trach ESRD on HD Hyperglycemia Plan ICU monitoring Wound care Trying to minimize sedation but she gets anxious so easily Humidified O2 via nasal cannula for now but we can use trach shield as backup NG suctioning IV Zosyn Nebulizers Continue IV antibiotics and micafungin Sedation with Precedex PRN TPN protocol Continue Lind to bedside drainage Tracheostomy care Hope to eventually move towards decannulation (we have a speaking valve for now) Trend labs Appreciate subspecialist input Prognosis extremely guarded at best! (she scored a 9 on [place] criteria 4 weeks ago). She remains critically ill Total time 31 Comment Review of Relevant I have reviewed the following items kolby (where applicable) has been applied. Medications: Current Medications Medications (Trade) Dose Ordered Sig/Yvon Route PRN Reason Start Time Stop Time Status Last Admin Dose Admin Potassium Chloride 90 meq/ Magnesium Sulfate 20 meq/ Multivitamins 10 ml/Chromium/ Copper/Manganese/ Seleni/Zn 1 ml/ Insulin Human Regular 20 unit/ Total Parenteral Nutrition/Amino Acids/Dextrose/ Fat Emulsion Intravenous 1,800 ml @ 75 mls/hr TPN CONT IV 09/19/19 22:00 09/20/19 21:59 09/19/19 22:28 Justicifation of Admission Dx: Justifications for Admission: Justification of Admission Dx: Yes BEBO KIRBY III DO Sep 20, 2019 10:20
--- NOTE | 2019-09-20 10:32 | PDOC ---
Subjective: Subjective: Gives me a thumbs down. Objective: Vital Signs: Vital Signs Date Time Temp Pulse Resp B/P (MAP) Pulse Ox O2 Delivery O2 Flow Rate FiO2 09/20/19 03:30 99.1 125 40 133/70 (91) 99 Tracheal Collar 10.0 99.1 Labs: Laboratory Tests Test 09/19/19 12:14 09/19/19 17:42 09/20/19 00:41 09/20/19 06:12 Glucose (Fingerstick) 197 mg/dL 183 mg/dL 210 mg/dL Sodium Level 147 mmol/L Potassium Level 3.7 mmol/L Chloride Level 109 mmol/L Carbon Dioxide Level 29 mmol/L Anion Gap 9 Blood Urea Nitrogen 37 mg/dL Creatinine 1.1 mg/dL Estimated GFR (Cockcroft-Gault) 52.8 Glucose Level 163 mg/dL Calcium Level 10.0 mg/dL Test 09/20/19 06:21 Glucose (Fingerstick) 163 mg/dL ORDERED: AEROBIC CULT GS COMMENTS: PICC LINE Has specimen been collected/obtained? Y Procedure Result GRAM STAIN Final Final ND Not Tested AEROBIC CULTURE Preliminary Preliminary No Growth on 09/19/19 at 0955 No Growth on 09/20/19 at 0927 PE: GEN: NAD LUNGS: trach collar HEART: tachycardic ABD: soft NEURO/PSYCH: less perky than last week, drowsy A/P: Complicated pancreatitis -- Continue support. Justicifation of Admission Dx: Justifications for Admission: Justification of Admission Dx: Yes CYNDEE FALCON Sep 20, 2019 10:32
--- NOTE | 2019-09-20 10:45 | NUR ---
SS following up with discharge planning. SS reviewed pt chart and discussed with RN. Pt is currently on trach collar and on room air. Pt sitting up in chair. Pt is currently on TPN and IV Zosyn. Pt working with PT/OT. SS will continue to follow for discharge planning.
--- NOTE | 2019-09-20 11:12 | PDOC ---
PULMONARY PROGRESS NOTES Subjective Patient intubated on 07/10 , s/p trach /6, has cough Remains on TS, increase secretions sedated with ativan today Vitals Vital Signs Date Time Temp Pulse Resp B/P (MAP) Pulse Ox O2 Delivery O2 Flow Rate FiO2 09/20/19 03:30 99.1 125 40 133/70 (91) 99 Tracheal Collar 10.0 99.1 ROS: No Chest Pain, No Abdominal Pain, No Increase Cough General: No acute distress HEENT: Other (trach midline ) Lungs: Other (few rhonchi) Cardiovascular: S1, S2 Abdomen: Soft, Non-tender Neuro Exam: Alert Extremities: Other (+3 generalized edema ) Skin: Warm, Dry Labs Laboratory Tests Test 09/18/19 12:23 09/18/19 17:24 09/19/19 00:04 09/19/19 05:30 Glucose (Fingerstick) 225 mg/dL (70-99) 244 mg/dL (70-99) 175 mg/dL (70-99) White Blood Count 12.6 x10^3/uL (4.0-11.0) Red Blood Count 3.07 x10^6/uL (3.50-5.40) Hemoglobin 8.4 g/dL (12.0-15.5) Hematocrit 26.7 % (36.0-47.0) Mean Corpuscular Volume 87 fL (79-100) Mean Corpuscular Hemoglobin 27 pg (25-35) Mean Corpuscular Hemoglobin Concent 31 g/dL (31-37) Red Cell Distribution Width 19.3 % (11.5-14.5) Platelet Count 554 x10^3/uL (140-400) Neutrophils (%) (Auto) 68 % (31-73) Lymphocytes (%) (Auto) 20 % (24-48) Monocytes (%) (Auto) 10 % (0-9) Eosinophils (%) (Auto) 1 % (0-3) Basophils (%) (Auto) 0 % (0-3) Neutrophils # (Auto) 8.6 x10^3/uL (1.8-7.7) Lymphocytes # (Auto) 2.6 x10^3/uL (1.0-4.8) Monocytes # (Auto) 1.3 x10^3/uL (0.0-1.1) Eosinophils # (Auto) 0.1 x10^3/uL (0.0-0.7) Basophils # (Auto) 0.0 x10^3/uL (0.0-0.2) Sodium Level 145 mmol/L (136-145) Potassium Level 3.2 mmol/L (3.5-5.1) Chloride Level 106 mmol/L (98-107) Carbon Dioxide Level 29 mmol/L (21-32) Anion Gap 10 (6-14) Blood Urea Nitrogen 34 mg/dL (7-20) Creatinine 1.1 mg/dL (0.6-1.0) Estimated GFR (Cockcroft-Gault) 52.8 Glucose Level 188 mg/dL (70-99) Calcium Level 9.9 mg/dL (8.5-10.1) Phosphorus Level 3.6 mg/dL (2.6-4.7) Test 09/19/19 05:48 09/19/19 12:14 09/19/19 17:42 09/20/19 00:41 Glucose (Fingerstick) 189 mg/dL (70-99) 197 mg/dL (70-99) 183 mg/dL (70-99) 210 mg/dL (70-99) Test 09/20/19 06:12 09/20/19 06:21 Sodium Level 147 mmol/L (136-145) Potassium Level 3.7 mmol/L (3.5-5.1) Chloride Level 109 mmol/L (98-107) Carbon Dioxide Level 29 mmol/L (21-32) Anion Gap 9 (6-14) Blood Urea Nitrogen 37 mg/dL (7-20) Creatinine 1.1 mg/dL (0.6-1.0) Estimated GFR (Cockcroft-Gault) 52.8 Glucose Level 163 mg/dL (70-99) Calcium Level 10.0 mg/dL (8.5-10.1) Glucose (Fingerstick) 163 mg/dL (70-99) Laboratory Tests Test 09/19/19 12:14 09/19/19 17:42 09/20/19 00:41 09/20/19 06:12 Glucose (Fingerstick) 197 mg/dL (70-99) 183 mg/dL (70-99) 210 mg/dL (70-99) Sodium Level 147 mmol/L (136-145) Potassium Level 3.7 mmol/L (3.5-5.1) Chloride Level 109 mmol/L (98-107) Carbon Dioxide Level 29 mmol/L (21-32) Anion Gap 9 (6-14) Blood Urea Nitrogen 37 mg/dL (7-20) Creatinine 1.1 mg/dL (0.6-1.0) Estimated GFR (Cockcroft-Gault) 52.8 Glucose Level 163 mg/dL (70-99) Calcium Level 10.0 mg/dL (8.5-10.1) Test 09/20/19 06:21 Glucose (Fingerstick) 163 mg/dL (70-99) Medications Active Scripts Medications Dose Route/Sig Max Daily Dose Days Date Category Bisoprolol Fumarate 5 Mg Tablet 10 Mg PO DAILY 07/04/19 Reported Comments cxr reviewed, Impression . IMPRESSION: 1. Acute hypoxemic respiratory failure secondary to ARDS status post trach, 2. Gallstone pancreatitis 3. Severe metabolic acidosis.stable 4. Acute kidney injury-stable, Off HD-- continue to improve 5. Acute gallstone pancreatitis. 6. Hypoalbuminemia. 7. Moderate persistent effusions, s/p left thora 08/29 8. Fever- Per ID, per surgery--resolved 9. Chronic anemia 10. Covid 19 testing negative 11. Moderate to large ascites-S/P paracentisis 12.S/P paracentisis with 4 liters removed on 08/03/19 13. S/P IR drain placement on 08/26/2019 Plan . 1.Continue supplemental oxygen via trach shield-- PMV/capping as tolerated/ prn suction. dc ativan 2. s/p thoracentesis, 08/29, 3 litres removed 3. Follow surgery recs-- S/P 3 drain placed in IR on 08/26/2019 4. Follow ID recs for ABX 5. Follow nephrology recs 6. Continue TPN DVT/GI PPX: heparin SQ/ protonix PT/OT D/W RN and pt CODE:FULL VINAYAK LANDRUM MD Sep 20, 2019 11:12
--- NOTE | 2019-09-20 11:45 | NUR ---
Order received from Dr. Dos Santos and Dr. Hamilton to D/C Ativan. Patient very groggy, not able to participate w/ PT/OT at this time. Fentanyl remains active for PRN pain.
[2019-09-20] MEDS: TPN PER PHARMACY MC PRN (13:16)
--- NOTE | 2019-09-20 13:17 | NUR ---
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, 8 inches Weight: 71.815584 kg Current diet: NPO LABS: Sodium: 147 Potassium: 3.7 Chloride: 109 Calcium: 10.0 Corrected Calcium: 11.60 Magnesium: 2.2 CO2: 29 SCr: 1.1 Glucose: 163-210 Albumin: 2.0 AST: 15 ALT: 14 TPN FORMULA: TPN TYPE: Central Continuous AMINO ACIDS: 75 gm DEXTROSE: 250 gm LIPIDS: 40 gm POTASSIUM CHLORIDE: 90 mEq MAGNESIUM: 20 mEq INSULIN: 20 units MULTIPLE VITAMIN: 10 ml TRACE ELEMENTS: 1 ml(s) TPN PLAN: K normalized today. BG in range after current TPN started. No changes today. -Mag, Phos and Triglycerides ordered for 09/21 R: Continue same TPN formula. Will monitor electrolytes, glucose, and tolerance to TPN. MIKAYLA CHU RPH, 09/20/19 [id number]
--- NOTE | 2019-09-20 15:47 | NUR ---
Patient walked to shower w/ 2 RN's, walker. Sat in shower chair. Barely able to stay awake. Upon transporting patient back to room with walker, gait belt, patient had to be placed in chair due to grogginess, weakness. Patient slept for multiple hours. Upon becoming more alert, less tired, PT and RN took patient outside via walking and wheelchair. Patient tolerated well. Trach care performed, dressings on abd changed, patient placed back in bed around 1500. Sleeping at this time.
--- NOTE | 2019-09-20 16:36 | PDOC ---
SURGICAL PROGRESS NOTE Subjective Pt sleeping comfortably d/w nursing cont supportive care. Vital Signs Vital Signs Date Time Temp Pulse Resp B/P (MAP) Pulse Ox O2 Delivery O2 Flow Rate FiO2 09/20/19 14:00 122 40 145/88 (107) 96 Room Air 09/20/19 12:00 98.8 98.8 09/20/19 03:30 10.0 I&O Intake and Output 09/20/19 06:59 Intake Total 1125 ml Output Total 1655 ml Balance -530 ml Intake Oral 15 ml IV Total 1035 ml Other 75 ml Output Urine Total 1655 ml # Bowel Movements 3 Labs Laboratory Tests Test 09/18/19 17:24 09/19/19 00:04 09/19/19 05:30 09/19/19 05:48 Glucose (Fingerstick) 244 mg/dL (70-99) 175 mg/dL (70-99) 189 mg/dL (70-99) White Blood Count 12.6 x10^3/uL (4.0-11.0) Red Blood Count 3.07 x10^6/uL (3.50-5.40) Hemoglobin 8.4 g/dL (12.0-15.5) Hematocrit 26.7 % (36.0-47.0) Mean Corpuscular Volume 87 fL (79-100) Mean Corpuscular Hemoglobin 27 pg (25-35) Mean Corpuscular Hemoglobin Concent 31 g/dL (31-37) Red Cell Distribution Width 19.3 % (11.5-14.5) Platelet Count 554 x10^3/uL (140-400) Neutrophils (%) (Auto) 68 % (31-73) Lymphocytes (%) (Auto) 20 % (24-48) Monocytes (%) (Auto) 10 % (0-9) Eosinophils (%) (Auto) 1 % (0-3) Basophils (%) (Auto) 0 % (0-3) Neutrophils # (Auto) 8.6 x10^3/uL (1.8-7.7) Lymphocytes # (Auto) 2.6 x10^3/uL (1.0-4.8) Monocytes # (Auto) 1.3 x10^3/uL (0.0-1.1) Eosinophils # (Auto) 0.1 x10^3/uL (0.0-0.7) Basophils # (Auto) 0.0 x10^3/uL (0.0-0.2) Sodium Level 145 mmol/L (136-145) Potassium Level 3.2 mmol/L (3.5-5.1) Chloride Level 106 mmol/L (98-107) Carbon Dioxide Level 29 mmol/L (21-32) Anion Gap 10 (6-14) Blood Urea Nitrogen 34 mg/dL (7-20) Creatinine 1.1 mg/dL (0.6-1.0) Estimated GFR (Cockcroft-Gault) 52.8 Glucose Level 188 mg/dL (70-99) Calcium Level 9.9 mg/dL (8.5-10.1) Phosphorus Level 3.6 mg/dL (2.6-4.7) Test 09/19/19 12:14 09/19/19 17:42 09/20/19 00:41 09/20/19 06:12 Glucose (Fingerstick) 197 mg/dL (70-99) 183 mg/dL (70-99) 210 mg/dL (70-99) Sodium Level 147 mmol/L (136-145) Potassium Level 3.7 mmol/L (3.5-5.1) Chloride Level 109 mmol/L (98-107) Carbon Dioxide Level 29 mmol/L (21-32) Anion Gap 9 (6-14) Blood Urea Nitrogen 37 mg/dL (7-20) Creatinine 1.1 mg/dL (0.6-1.0) Estimated GFR (Cockcroft-Gault) 52.8 Glucose Level 163 mg/dL (70-99) Calcium Level 10.0 mg/dL (8.5-10.1) Test 09/20/19 06:21 09/20/19 12:22 Glucose (Fingerstick) 163 mg/dL (70-99) 169 mg/dL (70-99) Laboratory Tests Test 09/19/19 17:42 09/20/19 00:41 09/20/19 06:12 09/20/19 06:21 Glucose (Fingerstick) 183 mg/dL (70-99) 210 mg/dL (70-99) 163 mg/dL (70-99) Sodium Level 147 mmol/L (136-145) Potassium Level 3.7 mmol/L (3.5-5.1) Chloride Level 109 mmol/L (98-107) Carbon Dioxide Level 29 mmol/L (21-32) Anion Gap 9 (6-14) Blood Urea Nitrogen 37 mg/dL (7-20) Creatinine 1.1 mg/dL (0.6-1.0) Estimated GFR (Cockcroft-Gault) 52.8 Glucose Level 163 mg/dL (70-99) Calcium Level 10.0 mg/dL (8.5-10.1) Test 09/20/19 12:22 Glucose (Fingerstick) 169 mg/dL (70-99) Problem List Problems Medical Problems: (1) Acute pancreatitis Status: Acute (2) Cholelithiasis Status: Acute Justicifation of Admission Dx: Justifications for Admission: Justification of Admission Dx: Yes DAVON SIMMS MD Sep 20, 2019 16:36
[2019-09-20] MEDS: ENOXAPARIN 40 MG/0.4 ML SYRINGE. SQ SCH (16:59)
[2019-09-20] MEDS: fentaNYL PF VIAL 100 MCG/2 ML VIAL IVP PRN ×2 (19:36→23:57)
--- NOTE | 2019-09-20 20:30 | NUR ---
Pt has been anxious since change of shift. Mother at bedside. Pt coughing frequently. Sat was in mid 80's. Trach care was done and the end of the inner canula was found to be plugged with thick white mucous. Patient was suctioned and now is much calmer and drifting off to sleep. Sat is now in mid to high 90's.
[2019-09-20] MEDS ORDERED: AMINO ACID IV SCH ×8 (22:00)
[2019-09-20] MEDS ORDERED: [UNRECOGNIZED DRUG - OTHER] IV SCH ×8 (22:00)
[2019-09-20] MEDS ORDERED: TOTAL PARENTERAL NUTRITION IV SCH ×8 (22:00)
[2019-09-20] MEDS ORDERED: DEXTROSE 70% IV SCH ×8 (22:00)
[2019-09-21] MEDS: PIPERACILLIN/TAZOBACTAM 3.375 GM in IV NORMAL SALINE 50ML 50 ML IV SCH ×5 (00:07→23:13)
[2019-09-21] MEDS: INSULIN LISPRO 300 UNITS/3 ML VIAL. SQ SCH ×4 (00:15→18:28)
[2019-09-21 03:00] VITALS: BP 144/88
[2019-09-21 07:00] VITALS: BP 153/82
[2019-09-21] MEDS: FUROSEMIDE 40 MG/4 ML VIAL. IVP SCH ×2 (08:04→13:30)
[2019-09-21] MEDS: PANTOPRAZOLE IV PUSH 40 MG VIAL. IVP SCH (08:04)
[2019-09-21 08:09] LABS: BASO # 0.1 x10^3/uL (0.0-0.2); BASO % 1 % (0-3); EOS # 0.1 x10^3/uL (0.0-0.7); EOS % 1 % (0-3); HEMATOCRIT 27.4 % (36.0-47.0); HEMOGLOBIN 8.5 g/dL (12.0-15.5); LYMPH # 2.3 x10^3/uL (1.0-4.8); LYMPH % 18 % (24-48); MEAN CORPUSCULAR HEMOGLOBIN 27 pg (25-35); MEAN CORPUSCULAR HGB CONC 31 g/dL (31-37); MEAN CORPUSCULAR VOLUME 88 fL (79-100); MONO # 0.9 x10^3/uL (0.0-1.1); MONO % 7 % (0-9); NEUT # 9.5 x10^3/uL (1.8-7.7); NEUT % 74 % (31-73); PLATELET COUNT 594 x10^3/uL (140-400); RED BLOOD COUNT 3.11 x10^6/uL (3.50-5.40); WHITE BLOOD COUNT 12.8 x10^3/uL (4.0-11.0)
--- NOTE | 2019-09-21 08:19 | PDOC ---
[facility] [facility] PROGRESS NOTE Chief Complaint Chief Complaint Acute hypoxic Respiratory failure requiring mechanical ventilation (now extubated for several days but still with tracheostomy) Tracheostomy bilateral pleural effusions/pulm edema Sepsis Severe Acute gallstone pancreatitis (not a surgical candidate at this time) with necrosis Acute kidney failure now requiring dialysis Salpingitis Gallstones (Calculus of gallbladder with acute cholecystitis without obstruc tion) HTN Leukocytosis Hypoxia Uterine fibroid Intractable pain Intractable nausea Covid 19 negative. Acute on chronic anemia EEG: No seizure activityFever - better currently - intermittent could be from underlying pancreatitis blood cults 08/21 - neg so far ? Ileus with vomiting Abd distention - U/S and CT reviewed s/p 0.4 L of opaque, debris-containing ascites was removed 08/23 Acute pancreatitis with persistent necrosis - 08/14 status post KAYLIN drain placement + C paropsilosis. s/p additional drains 08/25 Anemia - S/p PRBCs Cholelithiasis with thickening of the gallbladder wall. Leucocytosis improving JUANA, hyperkalemia, Metabolic acidosis off dialysis Acute hypoxic resp failure ,bilateral pleural effusion and atelectasis hypocalcemia Prediabetes HTN s/p trach ESRD on HD Hyperglycemia History of Present Illness History of Present Illness 09/21/2019 Patient seen and examined in the ICU She remains critically ill We have been trying to hold off on her Ativan for the past 24 hours She is a little more awake but shaky and agitated and anxious seems depressed Discussed with RN Chart reviewed 09/20/2019 Patient seen and examined in the ICU She is a little more alert today but still quite ill Appears clammy and pale and depressed/anxious Discussed with RN Chart reviewed 09/19/2019 Patient seen and examined in the ICU She appears extremely ill She is tachypneic at 35 respirations per minute and tachycardic at 132 bpm She is extremely encephalopathic and shaky She appears clammy Chart reviewed Discussed with RN Prognosis extremely guarded at best 09/18/2019 Patient still in ICU Resting with no apparent distress Chart reviewed 09/17/2019 Patient seen and examined in the ICU She is wiping her face with a cough Discussed with RN Chart reviewed We hope to get her out of the ICU later today if possible 09/16/2019 Patient seen and examined in the ICU once again She is back on NG suction On IV Zosyn Has IV TPN Sedated with Precedex but anxious still Appears somewhat clammy and pale Chart reviewed Discussed with RN She remains critically ill 09/15/2019 Patient seen and examined in the ICU She has an NG that is clamped we are hoping to start some clear liquids but she looks quite ill She is on IV TPN Meropenem changed to IV Zosyn (agree) She has Lind to bedside drainage She is semi-sedated with Precedex Chart reviewed Discussed with RN She remains critically ill Seen bedside. Hb 8. She was just a bit hypoxic, had a mucous plug suctioned. Able to vocalize well with speaking valve, tells me we are being very hard on her and she would like to be drugged back to sleep. She wants to wake up and feel better. On trach shield, T max 100.4. afebrile this a.m. 09/13/2019 Patient seen and examined in the ICU She is up in the chair very frail trying to talk a little shaky Discussed with RN Chart reviewed 09/12/2019 Patient seen and examined in the ICU Patient up in the chair Having a severe coughing episode with a lot of phlegm coming out of her tracheostomy Discussed with RN Discussed with physical therapy Chart reviewed 09/10,. feels well, has been out of room in wheelchair no complaint, still weak, some with not wanting to wear her valve on trach cont other, may be able to work with speech tomorrow, juan ramon OK to try, 09/09, anxiety is up today, she dislikes the valve still, shower and outside today . 09/08 she doesnt want to wear her passy-fantasma valve, discussed str and plan with her. speech following, needs swallow study, but needs to wear her valve longer, cont current able to walk some, walker 09/07 stronger, better, we discussed better oral care she would like to try swallow study, wants to try to eat, speech is following 09/07/2019 She remains in the ICU sitting up and working with OT, getting better if limit pain meds, may do better off the vent, Nurses trying to suction her, that is also improved, Chart reviewed 09/06/2019 Patient seen and examined in the ICU She had an episode yesterday of tachycardia and severe agitation we gave her some Ativan After that she seemed to have stroke symptoms but now that the Ativan has wore off her stroke symptoms have resolved She is on IV meropenem and daptomycin and micafungin Chart reviewed Discussed with RN Patient is still critically ill BRIEF OPERATIVE NOTE Pre-Op Diagnosis Pancreatitis with pseudocysts, suspected infection Post-Op Diagnosis same Procedure Performed CT abdominal Drains x 3 Surgeon Tesfaye Anesthesia Type: Conscious Sedation Findings 3 abdominal drains, 14F, with turbid pancreatic fluid and necrotic debris in each. Complications No immediate 08/26: Patient today somewhat restless and having bilious secretions from ET tube, imaging studies ordered, discussed with databases software consultant. Pretty poor prognosis, hopefully is not a fistula, poor surgical candidate. 08/27: Imaging with no acute events, she seems more stable today compared to yesterday. Encouraged as much activity as possible patient at high risk for severe depression. Vitals/I&O Vitals/I&O: Vital Signs Date Time Temp Pulse Resp B/P (MAP) Pulse Ox O2 Delivery O2 Flow Rate FiO2 09/21/19 03:00 98.5 128 44 144/88 (106) 96 Room Air 98.5 I & O 09/20/19 09/20/19 09/21/19 15:00 23:00 07:00 Intake Total 50 ml 531 ml 0 ml Output Total 1050 ml 1200 ml Balance 50 ml -519 ml -1200 ml Physical Exam Physical Exam: GENERAL: Propped up in bed,, weak appearing see above HEENT: Oral cavity clear, NGT NECK: Trach present LUNGS: Clear, nonlabored HEART: S1, S2, regular ABDOMEN: mod distention, bowel sounds present, + KAYLIN drains x 3 : Lind (08/01) EXTREMITIES: Generalized edema. no cyanosis SKIN: Cool clammy and pale CAMOUFLAGE ASSEMBLER:Opens eyes to voice, very weak LUE-PICC (09/15) without signsof complications General: Alert, Cooperative, No acute distress Heart: Regular rate, Normal S1, Normal S2, No murmurs, Gallops Lungs: Other (few rhonchi) Abdomen: Soft Extremities: No clubbing, No cyanosis, No edema, Normal pulses, No tenderness/swelling Skin: Other (warm, dry) Labs Labs: Laboratory Tests Test 09/20/19 12:22 09/20/19 17:18 09/21/19 00:12 09/21/19 06:28 Glucose (Fingerstick) 169 mg/dL (70-99) 168 mg/dL (70-99) 194 mg/dL (70-99) 216 mg/dL (70-99) Test 09/21/19 07:56 White Blood Count 12.8 x10^3/uL (4.0-11.0) Red Blood Count 3.11 x10^6/uL (3.50-5.40) Hemoglobin 8.5 g/dL (12.0-15.5) Hematocrit 27.4 % (36.0-47.0) Mean Corpuscular Volume 88 fL (79-100) Mean Corpuscular Hemoglobin 27 pg (25-35) Mean Corpuscular Hemoglobin Concent 31 g/dL (31-37) Red Cell Distribution Width 20.0 % (11.5-14.5) Platelet Count 594 x10^3/uL (140-400) Neutrophils (%) (Auto) 74 % (31-73) Lymphocytes (%) (Auto) 18 % (24-48) Monocytes (%) (Auto) 7 % (0-9) Eosinophils (%) (Auto) 1 % (0-3) Basophils (%) (Auto) 1 % (0-3) Neutrophils # (Auto) 9.5 x10^3/uL (1.8-7.7) Lymphocytes # (Auto) 2.3 x10^3/uL (1.0-4.8) Monocytes # (Auto) 0.9 x10^3/uL (0.0-1.1) Eosinophils # (Auto) 0.1 x10^3/uL (0.0-0.7) Basophils # (Auto) 0.1 x10^3/uL (0.0-0.2) Assessment and Plan Assessmemt and Plan Problems Medical Problems: (1) Acute pancreatitis Status: Acute (2) Cholelithiasis Status: Acute Acute hypoxic Respiratory failure requiring mechanical ventilation was initially intubated on 07/10 was off for couple of days now back on Severe gallstone pancreatitis (not a surgical candidate at this time) with necrosis Tracheostomy bilateral pleural effusions/pulm edema Severe sepsis Acute kidney failure now requiring dialysis Salpingitis Gallstones (Calculus of gallbladder with acute cholecystitis without obstruction) HTN Leukocytosis Hypoxia Uterine fibroid Intractable pain Intractable nausea Covid 19 negative. Acute on chronic anemia EEG: No seizure activityFever - better currently - intermittent could be from underlying pancreatitis blood cults 08/21 - neg so far ? Ileus with vomiting Abd distention - U/S and CT reviewed s/p 0.4 L of opaque, debris-containing ascites was removed 08/23 Acute pancreatitis with persistent necrosis - 08/14 status post KAYLIN drain placement + C paropsilosis. s/p additional drains 08/25 Anemia - S/p PRBCs Cholelithiasis with thickening of the gallbladder wall. Leucocytosis improving JUANA, hyperkalemia, Metabolic acidosis off dialysis Acute hypoxic resp failure ,bilateral pleural effusion and atelectasis hypocalcemia Prediabetes HTN s/p trach ESRD on HD Hyperglycemia Plan ICU monitoring Wound care Trying to minimize sedation but she gets anxious so easily Humidified O2 via nasal cannula for now but we can use trach shield as backup NG suctioning IV Zosyn Nebulizers Continue IV antibiotics and micafungin Sedation with Precedex PRN TPN protocol Continue Lind to bedside drainage Tracheostomy care Hope to eventually move towards decannulation (we have a speaking valve for now) Trend labs Appreciate subspecialist input Prognosis extremely guarded at best! (she scored a 9 on [place] criteria 5 weeks ago). She is still very critically ill Total time 31 Comment Review of Relevant I have reviewed the following items kolby (where applicable) has been applied. Medications: Current Medications Medications (Trade) Dose Ordered Sig/Yvon Route PRN Reason Start Time Stop Time Status Last Admin Dose Admin Potassium Chloride 90 meq/ Magnesium Sulfate 20 meq/ Multivitamins 10 ml/Chromium/ Copper/Manganese/ Seleni/Zn 1 ml/ Insulin Human Regular 20 unit/ Total Parenteral Nutrition/Amino Acids/Dextrose/ Fat Emulsion Intravenous 1,800 ml @ 75 mls/hr TPN CONT IV 09/20/19 22:00 09/21/19 21:59 09/20/19 22:08 Lorazepam (Ativan Inj) 0.25 mg PRN Q4HRS PRN IVP ANXIETY / AGITATION 09/21/19 07:30 09/21/19 07:55 Justicifation of Admission Dx: Justifications for Admission: Justification of Admission Dx: Yes BEBO KIRBY III DO Sep 21, 2019 08:19
[2019-09-21] MEDS: fentaNYL PF VIAL 100 MCG/2 ML VIAL IVP PRN ×4 (10:03→23:14)
--- NOTE | 2019-09-21 10:18 | PDOC ---
Subjective: Subjective: Doing "so-so." D/w nurse - on room air for awhile, stooled yesterday and today. Objective: Vital Signs: Vital Signs Date Time Temp Pulse Resp B/P (MAP) Pulse Ox O2 Delivery O2 Flow Rate FiO2 09/21/19 10:03 97 Room Air 09/21/19 07:00 98.4 126 38 153/82 (105) 98.4 Labs: Laboratory Tests Test 09/20/19 12:22 09/20/19 17:18 09/21/19 00:12 09/21/19 06:28 Glucose (Fingerstick) 169 mg/dL 168 mg/dL 194 mg/dL 216 mg/dL Test 09/21/19 07:56 White Blood Count 12.8 x10^3/uL Red Blood Count 3.11 x10^6/uL Hemoglobin 8.5 g/dL Hematocrit 27.4 % Mean Corpuscular Volume 88 fL Mean Corpuscular Hemoglobin 27 pg Mean Corpuscular Hemoglobin Concent 31 g/dL Red Cell Distribution Width 20.0 % Platelet Count 594 x10^3/uL Neutrophils (%) (Auto) 74 % Lymphocytes (%) (Auto) 18 % Monocytes (%) (Auto) 7 % Eosinophils (%) (Auto) 1 % Basophils (%) (Auto) 1 % Neutrophils # (Auto) 9.5 x10^3/uL Lymphocytes # (Auto) 2.3 x10^3/uL Monocytes # (Auto) 0.9 x10^3/uL Eosinophils # (Auto) 0.1 x10^3/uL Basophils # (Auto) 0.1 x10^3/uL PE: HEENT: trach/room air HEART: tachycardic ABD: soft/less distended, dressing in place NEURO/PSYCH: awake, doesn't verbalize A/P: Pancreatitis, MOSF -- Supportive care. Justicifation of Admission Dx: Justifications for Admission: Justification of Admission Dx: Yes CYNDEE FALCON Sep 21, 2019 10:18
[2019-09-21 11:00] VITALS: BP 123/87
--- NOTE | 2019-09-21 11:17 | PDOC ---
PULMONARY PROGRESS NOTES Subjective Patient intubated on 07/10 , s/p trach 07/24, has cough Remains on TS, increase secretions more alert Vitals Vital Signs Date Time Temp Pulse Resp B/P (MAP) Pulse Ox O2 Delivery O2 Flow Rate FiO2 09/21/19 10:03 97 Room Air 09/21/19 07:00 98.4 126 38 153/82 (105) 98.4 ROS: No Chest Pain, No Abdominal Pain, No Increase Cough General: Alert, No acute distress Lungs: Other (few rhonchi) Cardiovascular: S1, S2 Abdomen: Soft, Non-tender Neuro Exam: Alert Extremities: Other (+3 generalized edema ) Skin: Warm, Dry Labs Laboratory Tests Test 09/19/19 12:14 09/19/19 17:42 09/20/19 00:41 09/20/19 06:12 Glucose (Fingerstick) 197 mg/dL (70-99) 183 mg/dL (70-99) 210 mg/dL (70-99) Sodium Level 147 mmol/L (136-145) Potassium Level 3.7 mmol/L (3.5-5.1) Chloride Level 109 mmol/L (98-107) Carbon Dioxide Level 29 mmol/L (21-32) Anion Gap 9 (6-14) Blood Urea Nitrogen 37 mg/dL (7-20) Creatinine 1.1 mg/dL (0.6-1.0) Estimated GFR (Cockcroft-Gault) 52.8 Glucose Level 163 mg/dL (70-99) Calcium Level 10.0 mg/dL (8.5-10.1) Test 09/20/19 06:21 09/20/19 12:22 09/20/19 17:18 09/21/19 00:12 Glucose (Fingerstick) 163 mg/dL (70-99) 169 mg/dL (70-99) 168 mg/dL (70-99) 194 mg/dL (70-99) Test 09/21/19 06:28 09/21/19 07:56 Glucose (Fingerstick) 216 mg/dL (70-99) White Blood Count 12.8 x10^3/uL (4.0-11.0) Red Blood Count 3.11 x10^6/uL (3.50-5.40) Hemoglobin 8.5 g/dL (12.0-15.5) Hematocrit 27.4 % (36.0-47.0) Mean Corpuscular Volume 88 fL (79-100) Mean Corpuscular Hemoglobin 27 pg (25-35) Mean Corpuscular Hemoglobin Concent 31 g/dL (31-37) Red Cell Distribution Width 20.0 % (11.5-14.5) Platelet Count 594 x10^3/uL (140-400) Neutrophils (%) (Auto) 74 % (31-73) Lymphocytes (%) (Auto) 18 % (24-48) Monocytes (%) (Auto) 7 % (0-9) Eosinophils (%) (Auto) 1 % (0-3) Basophils (%) (Auto) 1 % (0-3) Neutrophils # (Auto) 9.5 x10^3/uL (1.8-7.7) Lymphocytes # (Auto) 2.3 x10^3/uL (1.0-4.8) Monocytes # (Auto) 0.9 x10^3/uL (0.0-1.1) Eosinophils # (Auto) 0.1 x10^3/uL (0.0-0.7) Basophils # (Auto) 0.1 x10^3/uL (0.0-0.2) Laboratory Tests Test 09/20/19 12:22 09/20/19 17:18 09/21/19 00:12 09/21/19 06:28 Glucose (Fingerstick) 169 mg/dL (70-99) 168 mg/dL (70-99) 194 mg/dL (70-99) 216 mg/dL (70-99) Test 09/21/19 07:56 White Blood Count 12.8 x10^3/uL (4.0-11.0) Red Blood Count 3.11 x10^6/uL (3.50-5.40) Hemoglobin 8.5 g/dL (12.0-15.5) Hematocrit 27.4 % (36.0-47.0) Mean Corpuscular Volume 88 fL (79-100) Mean Corpuscular Hemoglobin 27 pg (25-35) Mean Corpuscular Hemoglobin Concent 31 g/dL (31-37) Red Cell Distribution Width 20.0 % (11.5-14.5) Platelet Count 594 x10^3/uL (140-400) Neutrophils (%) (Auto) 74 % (31-73) Lymphocytes (%) (Auto) 18 % (24-48) Monocytes (%) (Auto) 7 % (0-9) Eosinophils (%) (Auto) 1 % (0-3) Basophils (%) (Auto) 1 % (0-3) Neutrophils # (Auto) 9.5 x10^3/uL (1.8-7.7) Lymphocytes # (Auto) 2.3 x10^3/uL (1.0-4.8) Monocytes # (Auto) 0.9 x10^3/uL (0.0-1.1) Eosinophils # (Auto) 0.1 x10^3/uL (0.0-0.7) Basophils # (Auto) 0.1 x10^3/uL (0.0-0.2) Medications Active Scripts Medications Dose Route/Sig Max Daily Dose Days Date Category Bisoprolol Fumarate 5 Mg Tablet 10 Mg PO DAILY 07/04/19 Reported Comments cxr reviewed, Impression . IMPRESSION: 1. Acute hypoxemic respiratory failure secondary to ARDS status post trach, 2. Gallstone pancreatitis 3. Severe metabolic acidosis.stable 4. Acute kidney injury-stable, Off HD-- continue to improve 5. Acute gallstone pancreatitis. 6. Hypoalbuminemia. 7. Moderate persistent effusions, s/p left thora 08/29 8. Fever- Per ID, per surgery--resolved 9. Chronic anemia 10. Covid 19 testing negative 11. Moderate to large ascites-S/P paracentisis 12.S/P paracentisis with 4 liters removed on 08/03/19 13. S/P IR drain placement on 08/26/2019 Plan . 1.Continue supplemental oxygen via trach shield-- PMV/capping as tolerated/ prn suction. dc ativan 2. s/p thoracentesis, 08/29, 3 litres removed 3. Follow surgery recs-- S/P 3 drain placed in IR on 08/26/2019 4. Follow ID recs for ABX 5. Follow nephrology recs 6. Continue TPN DVT/GI PPX: heparin SQ/ protonix PT/OT D/W RN and pt CODE:FULL VINAYAK LANDRUM MD Sep 21, 2019 11:17
--- NOTE | 2019-09-21 11:30 | NUR ---
Dr Hamilton Paged to clarify lasix BID, potassium and sodium levels are increasing slowly-orders per Alfonso to decrease dose to lasix 40mg IVP daily.
--- NOTE | 2019-09-21 11:49 | PDOC ---
Infectious Disease Note Subjective Subjective awake in bed, KAYLIN out ROS ROS No nausea vomiting diarrhea chest pain Vital Sign Vital Signs Vital Signs Date Time Temp Pulse Resp B/P (MAP) Pulse Ox O2 Delivery O2 Flow Rate FiO2 09/21/19 10:03 97 Room Air 09/21/19 07:00 98.4 126 38 153/82 (105) 98.4 Physical Exam PHYSICAL EXAM GENERAL: Propped up in bed,, weak appearing see above HEENT: Oral cavity clear, NGT NECK: Trach present LUNGS: Clear, nonlabored HEART: S1, S2, regular ABDOMEN: mod distention, bowel sounds present, + KAYLIN drains x 3 : Lind (08/01) EXTREMITIES: Generalized edema. no cyanosis SKIN: Cool clammy and pale MORTAR MAN:Opens eyes to voice, very weak LUE-PICC (09/15) without signsof complications Labs Lab Laboratory Tests Test 09/20/19 12:22 09/20/19 17:18 09/21/19 00:12 09/21/19 06:28 Glucose (Fingerstick) 169 mg/dL (70-99) 168 mg/dL (70-99) 194 mg/dL (70-99) 216 mg/dL (70-99) Test 09/21/19 07:56 White Blood Count 12.8 x10^3/uL (4.0-11.0) Red Blood Count 3.11 x10^6/uL (3.50-5.40) Hemoglobin 8.5 g/dL (12.0-15.5) Hematocrit 27.4 % (36.0-47.0) Mean Corpuscular Volume 88 fL (79-100) Mean Corpuscular Hemoglobin 27 pg (25-35) Mean Corpuscular Hemoglobin Concent 31 g/dL (31-37) Red Cell Distribution Width 20.0 % (11.5-14.5) Platelet Count 594 x10^3/uL (140-400) Neutrophils (%) (Auto) 74 % (31-73) Lymphocytes (%) (Auto) 18 % (24-48) Monocytes (%) (Auto) 7 % (0-9) Eosinophils (%) (Auto) 1 % (0-3) Basophils (%) (Auto) 1 % (0-3) Neutrophils # (Auto) 9.5 x10^3/uL (1.8-7.7) Lymphocytes # (Auto) 2.3 x10^3/uL (1.0-4.8) Monocytes # (Auto) 0.9 x10^3/uL (0.0-1.1) Eosinophils # (Auto) 0.1 x10^3/uL (0.0-0.7) Basophils # (Auto) 0.1 x10^3/uL (0.0-0.2) Micro Objective Assessment Fever intermittent could be from underlying pancreatitis vs aspiration ? Ileus with vomiting Abd distention - U/S and CT reviewed s/p 0.4 L of opaque, debris-containing asc ites was removed 08/23 Acute pancreatitis with persistent necrosis - 08/14 status post KAYLIN drain placement + C paropsilosis; 08/23 + yeast & high amylase; s/p additional drains on 08/25 Anemia - S/p PRBCs Cholelithiasis with thickening of the gallbladder wall. Leucocytosis improved JUANA, hyperkalemia, Metabolic acidosis off dialysis Acute hypoxic resp failure ,bilateral pleural effusion and atelectasis hypocalcemia Prediabetes HTN s/p trach Plan Plan of Care continue Zosyn September 13 f/u labs/cath tip culture Aggressive pulmonary toilet Maintain aspiration precaution Supportive care PT and OT as tolerated D/w nursing KIMMY JONES MD Sep 21, 2019 11:49
[2019-09-21] MEDS: TPN PER PHARMACY MC PRN (12:07)
[2019-09-21 12:34] LABS: CALCIUM 10.6 mg/dL (8.5-10.1); CREATININE 1.2 mg/dL (0.6-1.0); GFR 47.7; POTASSIUM 3.4 mmol/L (3.5-5.1)
--- NOTE | 2019-09-21 14:03 | PDOC ---
SURGICAL PROGRESS NOTE Subjective Pt without new c/o Vital Signs Vital Signs Date Time Temp Pulse Resp B/P (MAP) Pulse Ox O2 Delivery O2 Flow Rate FiO2 09/21/19 11:00 99.0 123 28 123/87 (99) 97 Room Air 99.0 I&O Intake and Output 09/21/19 07:00 Intake Total 581 ml Output Total 2250 ml Balance -1669 ml Intake Oral 15 ml IV Total 566 ml Output Urine Total 2250 ml # Bowel Movements 1 General: Alert, Cooperative, No acute distress Abdomen: Soft Labs Laboratory Tests Test 09/19/19 17:42 09/20/19 00:41 09/20/19 06:12 09/20/19 06:21 Glucose (Fingerstick) 183 mg/dL (70-99) 210 mg/dL (70-99) 163 mg/dL (70-99) Sodium Level 147 mmol/L (136-145) Potassium Level 3.7 mmol/L (3.5-5.1) Chloride Level 109 mmol/L (98-107) Carbon Dioxide Level 29 mmol/L (21-32) Anion Gap 9 (6-14) Blood Urea Nitrogen 37 mg/dL (7-20) Creatinine 1.1 mg/dL (0.6-1.0) Estimated GFR (Cockcroft-Gault) 52.8 Glucose Level 163 mg/dL (70-99) Calcium Level 10.0 mg/dL (8.5-10.1) Test 09/20/19 12:22 09/20/19 17:18 09/21/19 00:12 09/21/19 06:28 Glucose (Fingerstick) 169 mg/dL (70-99) 168 mg/dL (70-99) 194 mg/dL (70-99) 216 mg/dL (70-99) Test 09/21/19 07:56 09/21/19 12:57 White Blood Count 12.8 x10^3/uL (4.0-11.0) Red Blood Count 3.11 x10^6/uL (3.50-5.40) Hemoglobin 8.5 g/dL (12.0-15.5) Hematocrit 27.4 % (36.0-47.0) Mean Corpuscular Volume 88 fL (79-100) Mean Corpuscular Hemoglobin 27 pg (25-35) Mean Corpuscular Hemoglobin Concent 31 g/dL (31-37) Red Cell Distribution Width 20.0 % (11.5-14.5) Platelet Count 594 x10^3/uL (140-400) Neutrophils (%) (Auto) 74 % (31-73) Lymphocytes (%) (Auto) 18 % (24-48) Monocytes (%) (Auto) 7 % (0-9) Eosinophils (%) (Auto) 1 % (0-3) Basophils (%) (Auto) 1 % (0-3) Neutrophils # (Auto) 9.5 x10^3/uL (1.8-7.7) Lymphocytes # (Auto) 2.3 x10^3/uL (1.0-4.8) Monocytes # (Auto) 0.9 x10^3/uL (0.0-1.1) Eosinophils # (Auto) 0.1 x10^3/uL (0.0-0.7) Basophils # (Auto) 0.1 x10^3/uL (0.0-0.2) Sodium Level 148 mmol/L (136-145) Potassium Level 3.4 mmol/L (3.5-5.1) Chloride Level 111 mmol/L (98-107) Carbon Dioxide Level 27 mmol/L (21-32) Anion Gap 10 (6-14) Blood Urea Nitrogen 39 mg/dL (7-20) Creatinine 1.2 mg/dL (0.6-1.0) Estimated GFR (Cockcroft-Gault) 47.7 Glucose Level 208 mg/dL (70-99) Calcium Level 10.6 mg/dL (8.5-10.1) Glucose (Fingerstick) 233 mg/dL (70-99) Laboratory Tests Test 09/20/19 17:18 09/21/19 00:12 09/21/19 06:28 09/21/19 07:56 Glucose (Fingerstick) 168 mg/dL (70-99) 194 mg/dL (70-99) 216 mg/dL (70-99) White Blood Count 12.8 x10^3/uL (4.0-11.0) Red Blood Count 3.11 x10^6/uL (3.50-5.40) Hemoglobin 8.5 g/dL (12.0-15.5) Hematocrit 27.4 % (36.0-47.0) Mean Corpuscular Volume 88 fL (79-100) Mean Corpuscular Hemoglobin 27 pg (25-35) Mean Corpuscular Hemoglobin Concent 31 g/dL (31-37) Red Cell Distribution Width 20.0 % (11.5-14.5) Platelet Count 594 x10^3/uL (140-400) Neutrophils (%) (Auto) 74 % (31-73) Lymphocytes (%) (Auto) 18 % (24-48) Monocytes (%) (Auto) 7 % (0-9) Eosinophils (%) (Auto) 1 % (0-3) Basophils (%) (Auto) 1 % (0-3) Neutrophils # (Auto) 9.5 x10^3/uL (1.8-7.7) Lymphocytes # (Auto) 2.3 x10^3/uL (1.0-4.8) Monocytes # (Auto) 0.9 x10^3/uL (0.0-1.1) Eosinophils # (Auto) 0.1 x10^3/uL (0.0-0.7) Basophils # (Auto) 0.1 x10^3/uL (0.0-0.2) Sodium Level 148 mmol/L (136-145) Potassium Level 3.4 mmol/L (3.5-5.1) Chloride Level 111 mmol/L (98-107) Carbon Dioxide Level 27 mmol/L (21-32) Anion Gap 10 (6-14) Blood Urea Nitrogen 39 mg/dL (7-20) Creatinine 1.2 mg/dL (0.6-1.0) Estimated GFR (Cockcroft-Gault) 47.7 Glucose Level 208 mg/dL (70-99) Calcium Level 10.6 mg/dL (8.5-10.1) Test 09/21/19 12:57 Glucose (Fingerstick) 233 mg/dL (70-99) Problem List Problems Medical Problems: (1) Acute pancreatitis Status: Acute (2) Cholelithiasis Status: Acute Assessment/Plan s/p lap exploration cont supportive care d/c planning. Justicifation of Admission Dx: Justifications for Admission: Justification of Admission Dx: Yes DAVON SIMMS MD Sep 21, 2019 14:03
[2019-09-21 15:00] VITALS: BP 128/76
--- NOTE | 2019-09-21 16:06 | NUR ---
SS following up with discharge planning. SS reviewed pt chart and discussed with pt RN. Pt transferred to room 104. Pt remains on TPN and IV Zosyn. Pt is currently on room air. Pt has trach collar. Per RN, trach was cleaned many times today. PT/OT continuing to work with pt to help with progress. SS will continue to follow for discharge planning.
[2019-09-21] MEDS: ENOXAPARIN 40 MG/0.4 ML SYRINGE. SQ SCH (18:02)
[2019-09-21 19:00] VITALS: BP 135/78
[2019-09-21] MEDS ORDERED: TOTAL PARENTERAL NUTRITION IV SCH ×8 (22:00)
[2019-09-21] MEDS ORDERED: DEXTROSE 70% IV SCH ×8 (22:00)
[2019-09-21] MEDS ORDERED: AMINO ACID IV SCH ×8 (22:00)
[2019-09-21] MEDS ORDERED: [UNRECOGNIZED DRUG - OTHER] IV SCH ×8 (22:00)
[2019-09-22] VITALS (8 sets, daily range): BP systolic 125–164; BP diastolic 68–104
[2019-09-22] MEDS: INSULIN LISPRO 300 UNITS/3 ML VIAL. SQ SCH ×4 (02:28→18:00)
[2019-09-22] MEDS: PIPERACILLIN/TAZOBACTAM 3.375 GM in IV NORMAL SALINE 50ML 50 ML IV SCH (06:10)
[2019-09-22 06:55] LABS: MAGNESIUM 2.5 mg/dL (1.8-2.4); POTASSIUM 3.4 mmol/L (3.5-5.1)
--- NOTE | 2019-09-22 07:26 | PDOC ---
Infectious Disease Note Subjective Subjective awake in bed, nodes that she is ok ROS ROS no n/v/d/sob Vital Sign Vital Signs Vital Signs Date Time Temp Pulse Resp B/P (MAP) Pulse Ox O2 Delivery O2 Flow Rate FiO2 09/22/19 03:00 98.9 124 32 144/96 (112) 97 Room Air 98.9 09/21/19 14:04 10.0 Physical Exam PHYSICAL EXAM GENERAL: Propped up in bed,, weak appearing see above HEENT: Oral cavity clear, NGT NECK: Trach present LUNGS: Clear, nonlabored HEART: S1, S2, regular ABDOMEN: mod distention, bowel sounds present, : Lind (08/01) EXTREMITIES: Generalized edema. no cyanosis SKIN: Cool clammy and pale PERCHER:Opens eyes to voice, very weak LUE-PICC (09/15) without signsof complications Labs Lab Laboratory Tests Test 09/21/19 07:56 09/21/19 12:57 09/21/19 18:20 09/22/19 02:21 White Blood Count 12.8 x10^3/uL (4.0-11.0) Red Blood Count 3.11 x10^6/uL (3.50-5.40) Hemoglobin 8.5 g/dL (12.0-15.5) Hematocrit 27.4 % (36.0-47.0) Mean Corpuscular Volume 88 fL (79-100) Mean Corpuscular Hemoglobin 27 pg (25-35) Mean Corpuscular Hemoglobin Concent 31 g/dL (31-37) Red Cell Distribution Width 20.0 % (11.5-14.5) Platelet Count 594 x10^3/uL (140-400) Neutrophils (%) (Auto) 74 % (31-73) Lymphocytes (%) (Auto) 18 % (24-48) Monocytes (%) (Auto) 7 % (0-9) Eosinophils (%) (Auto) 1 % (0-3) Basophils (%) (Auto) 1 % (0-3) Neutrophils # (Auto) 9.5 x10^3/uL (1.8-7.7) Lymphocytes # (Auto) 2.3 x10^3/uL (1.0-4.8) Monocytes # (Auto) 0.9 x10^3/uL (0.0-1.1) Eosinophils # (Auto) 0.1 x10^3/uL (0.0-0.7) Basophils # (Auto) 0.1 x10^3/uL (0.0-0.2) Sodium Level 148 mmol/L (136-145) Potassium Level 3.4 mmol/L (3.5-5.1) Chloride Level 111 mmol/L (98-107) Carbon Dioxide Level 27 mmol/L (21-32) Anion Gap 10 (6-14) Blood Urea Nitrogen 39 mg/dL (7-20) Creatinine 1.2 mg/dL (0.6-1.0) Estimated GFR (Cockcroft-Gault) 47.7 Glucose Level 208 mg/dL (70-99) Calcium Level 10.6 mg/dL (8.5-10.1) Glucose (Fingerstick) 233 mg/dL (70-99) 166 mg/dL (70-99) 529 mg/dL (70-99) Test 09/22/19 02:24 09/22/19 06:20 Glucose (Fingerstick) 182 mg/dL (70-99) 147 mg/dL (70-99) Potassium Level 3.4 mmol/L (3.5-5.1) Phosphorus Level 3.0 mg/dL (2.6-4.7) Magnesium Level 2.5 mg/dL (1.8-2.4) Triglycerides Level 449 mg/dL (0-150) Micro Objective Assessment Fever intermittent could be from underlying pancreatitis vs aspiration ? Ileus with vomiting Abd distention - U/S and CT reviewed s/p 0.4 L of opaque, debris-containing ascites was removed 08/23 Acute pancreatitis with persistent necrosis - 08/14 status post KAYLIN drain placement + C paropsilosis; 08/23 + yeast & high amylase; s/p additional drains on 08/25 Anemia - S/p PRBCs Cholelithiasis with thickening of the gallbladder wall. Leucocytosis improved JUANA, hyperkalemia, Metabolic acidosis off dialysis Acute hypoxic resp failure ,bilateral pleural effusion and atelectasis hypocalcemia Prediabetes HTN s/p trach Plan Plan of Care d/c Zosyn September 13 f/u labs/cath tip culture Aggressive pulmonary toilet Maintain aspiration precaution Supportive care PT and OT as tolerated D/w nursing KIMMY JONES MD 4, 2020 07:26
[2019-09-22 07:27] LABS: BASO % 0 % (0-3); EOS # 0.2 x10^3/uL (0.0-0.7); EOS % 1 % (0-3); HEMATOCRIT 24.8 % (36.0-47.0); HEMOGLOBIN 7.7 g/dL (12.0-15.5); LYMPH # 2.1 x10^3/uL (1.0-4.8); LYMPH % 17 % (24-48); MEAN CORPUSCULAR HEMOGLOBIN 28 pg (25-35); MEAN CORPUSCULAR HGB CONC 31 g/dL (31-37); MEAN CORPUSCULAR VOLUME 89 fL (79-100); MONO % 8 % (0-9); NEUT % 73 % (31-73); PLATELET COUNT 551 x10^3/uL (140-400); RED CELL DISTRIBUTION WIDTH 20.2 % (11.5-14.5); WHITE BLOOD COUNT 12.3 x10^3/uL (4.0-11.0)
--- NOTE | 2019-09-22 08:06 | PDOC ---
SURGICAL PROGRESS NOTE Subjective Patient resting comfortably no acute changes Vital Signs Vital Signs Date Time Temp Pulse Resp B/P (MAP) Pulse Ox O2 Delivery O2 Flow Rate FiO2 09/22/19 07:00 99.2 112 24 128/75 (92) 95 Room Air 99.2 09/21/19 14:04 10.0 I&O Intake and Output 09/22/19 07:00 Intake Total 10 ml Output Total 1380 ml Balance -1370 ml Intake Oral 10 ml Output Urine Total 1380 ml # Bowel Movements 2 PATIENT HAS A ROSARIO: Yes General: Alert, Cooperative, mild distress Abdomen: Normal bowel sounds, Soft, No tenderness, Other (Wounds clean dry and intact) Labs Laboratory Tests Test 09/20/19 12:22 09/20/19 17:18 09/21/19 00:12 09/21/19 06:28 Glucose (Fingerstick) 169 mg/dL (70-99) 168 mg/dL (70-99) 194 mg/dL (70-99) 216 mg/dL (70-99) Test 09/21/19 07:56 09/21/19 12:57 09/21/19 18:20 09/22/19 02:21 White Blood Count 12.8 x10^3/uL (4.0-11.0) Red Blood Count 3.11 x10^6/uL (3.50-5.40) Hemoglobin 8.5 g/dL (12.0-15.5) Hematocrit 27.4 % (36.0-47.0) Mean Corpuscular Volume 88 fL (79-100) Mean Corpuscular Hemoglobin 27 pg (25-35) Mean Corpuscular Hemoglobin Concent 31 g/dL (31-37) Red Cell Distribution Width 20.0 % (11.5-14.5) Platelet Count 594 x10^3/uL (140-400) Neutrophils (%) (Auto) 74 % (31-73) Lymphocytes (%) (Auto) 18 % (24-48) Monocytes (%) (Auto) 7 % (0-9) Eosinophils (%) (Auto) 1 % (0-3) Basophils (%) (Auto) 1 % (0-3) Neutrophils # (Auto) 9.5 x10^3/uL (1.8-7.7) Lymphocytes # (Auto) 2.3 x10^3/uL (1.0-4.8) Monocytes # (Auto) 0.9 x10^3/uL (0.0-1.1) Eosinophils # (Auto) 0.1 x10^3/uL (0.0-0.7) Basophils # (Auto) 0.1 x10^3/uL (0.0-0.2) Sodium Level 148 mmol/L (136-145) Potassium Level 3.4 mmol/L (3.5-5.1) Chloride Level 111 mmol/L (98-107) Carbon Dioxide Level 27 mmol/L (21-32) Anion Gap 10 (6-14) Blood Urea Nitrogen 39 mg/dL (7-20) Creatinine 1.2 mg/dL (0.6-1.0) Estimated GFR (Cockcroft-Gault) 47.7 Glucose Level 208 mg/dL (70-99) Calcium Level 10.6 mg/dL (8.5-10.1) Glucose (Fingerstick) 233 mg/dL (70-99) 166 mg/dL (70-99) 529 mg/dL (70-99) Test 09/22/19 02:24 09/22/19 06:20 Glucose (Fingerstick) 182 mg/dL (70-99) 147 mg/dL (70-99) White Blood Count 12.3 x10^3/uL (4.0-11.0) Red Blood Count 2.80 x10^6/uL (3.50-5.40) Hemoglobin 7.7 g/dL (12.0-15.5) Hematocrit 24.8 % (36.0-47.0) Mean Corpuscular Volume 89 fL (79-100) Mean Corpuscular Hemoglobin 28 pg (25-35) Mean Corpuscular Hemoglobin Concent 31 g/dL (31-37) Red Cell Distribution Width 20.2 % (11.5-14.5) Platelet Count 551 x10^3/uL (140-400) Neutrophils (%) (Auto) 73 % (31-73) Lymphocytes (%) (Auto) 17 % (24-48) Monocytes (%) (Auto) 8 % (0-9) Eosinophils (%) (Auto) 1 % (0-3) Basophils (%) (Auto) 0 % (0-3) Neutrophils # (Auto) 9.0 x10^3/uL (1.8-7.7) Lymphocytes # (Auto) 2.1 x10^3/uL (1.0-4.8) Monocytes # (Auto) 1.0 x10^3/uL (0.0-1.1) Eosinophils # (Auto) 0.2 x10^3/uL (0.0-0.7) Basophils # (Auto) 0.0 x10^3/uL (0.0-0.2) Potassium Level 3.4 mmol/L (3.5-5.1) Phosphorus Level 3.0 mg/dL (2.6-4.7) Magnesium Level 2.5 mg/dL (1.8-2.4) Triglycerides Level 449 mg/dL (0-150) Laboratory Tests Test 09/21/19 12:57 09/21/19 18:20 09/22/19 02:21 09/22/19 02:24 Glucose (Fingerstick) 233 mg/dL (70-99) 166 mg/dL (70-99) 529 mg/dL (70-99) 182 mg/dL (70-99) Test 09/22/19 06:20 White Blood Count 12.3 x10^3/uL (4.0-11.0) Red Blood Count 2.80 x10^6/uL (3.50-5.40) Hemoglobin 7.7 g/dL (12.0-15.5) Hematocrit 24.8 % (36.0-47.0) Mean Corpuscular Volume 89 fL (79-100) Mean Corpuscular Hemoglobin 28 pg (25-35) Mean Corpuscular Hemoglobin Concent 31 g/dL (31-37) Red Cell Distribution Width 20.2 % (11.5-14.5) Platelet Count 551 x10^3/uL (140-400) Neutrophils (%) (Auto) 73 % (31-73) Lymphocytes (%) (Auto) 17 % (24-48) Monocytes (%) (Auto) 8 % (0-9) Eosinophils (%) (Auto) 1 % (0-3) Basophils (%) (Auto) 0 % (0-3) Neutrophils # (Auto) 9.0 x10^3/uL (1.8-7.7) Lymphocytes # (Auto) 2.1 x10^3/uL (1.0-4.8) Monocytes # (Auto) 1.0 x10^3/uL (0.0-1.1) Eosinophils # (Auto) 0.2 x10^3/uL (0.0-0.7) Basophils # (Auto) 0.0 x10^3/uL (0.0-0.2) Potassium Level 3.4 mmol/L (3.5-5.1) Glucose (Fingerstick) 147 mg/dL (70-99) Phosphorus Level 3.0 mg/dL (2.6-4.7) Magnesium Level 2.5 mg/dL (1.8-2.4) Triglycerides Level 449 mg/dL (0-150) Problem List Problems Medical Problems: (1) Acute pancreatitis Status: Acute (2) Cholelithiasis Status: Acute Assessment/Plan Necrotizing pancreatitis No acute changes transferred to intensive care unit for logistics Continue supportive care Justicifation of Admission Dx: Justifications for Admission: Justification of Admission Dx: Yes CARIN MALDONADO MD Sep 22, 2019 08:06
[2019-09-22 08:28] LABS: CALCIUM 10.5 mg/dL (8.5-10.1); CREATININE 1.2 mg/dL (0.6-1.0); GFR 47.7; POTASSIUM 3.4 mmol/L (3.5-5.1)
[2019-09-22] MEDS: FUROSEMIDE 40 MG/4 ML VIAL. IVP SCH (08:38)
[2019-09-22] MEDS: PANTOPRAZOLE IV PUSH 40 MG VIAL. IVP SCH (08:38)
[2019-09-22] MEDS: fentaNYL PF VIAL 100 MCG/2 ML VIAL IVP PRN ×2 (08:39→18:04)
--- NOTE | 2019-09-22 09:48 | PDOC ---
PULMONARY PROGRESS NOTES Subjective Patient intubated on 07/10 , s/p trach 07/24, weak cough, requiring assistance with secretions Remains on TS, Awake and alert in chair today, doesn't like PMV Vitals Vital Signs Date Time Temp Pulse Resp B/P (MAP) Pulse Ox O2 Delivery O2 Flow Rate FiO2 09/22/19 08:39 25 95 Room Air 09/22/19 07:00 99.2 112 128/75 (92) 99.2 09/21/19 14:04 10.0 ROS: No Nausea, No Chest Pain, No Abdominal Pain, No Increase Cough General: Alert, No acute distress Lungs: Other (diminshed in bases ) Cardiovascular: S1, S2 Abdomen: Soft, Non-tender Neuro Exam: Alert Extremities: Other (+1 BLE edema) Skin: Warm, Dry Labs Laboratory Tests Test 09/20/19 12:22 09/20/19 17:18 09/21/19 00:12 09/21/19 06:28 Glucose (Fingerstick) 169 mg/dL (70-99) 168 mg/dL (70-99) 194 mg/dL (70-99) 216 mg/dL (70-99) Test 09/21/19 07:56 09/21/19 12:57 09/21/19 18:20 09/22/19 02:21 White Blood Count 12.8 x10^3/uL (4.0-11.0) Red Blood Count 3.11 x10^6/uL (3.50-5.40) Hemoglobin 8.5 g/dL (12.0-15.5) Hematocrit 27.4 % (36.0-47.0) Mean Corpuscular Volume 88 fL (79-100) Mean Corpuscular Hemoglobin 27 pg (25-35) Mean Corpuscular Hemoglobin Concent 31 g/dL (31-37) Red Cell Distribution Width 20.0 % (11.5-14.5) Platelet Count 594 x10^3/uL (140-400) Neutrophils (%) (Auto) 74 % (31-73) Lymphocytes (%) (Auto) 18 % (24-48) Monocytes (%) (Auto) 7 % (0-9) Eosinophils (%) (Auto) 1 % (0-3) Basophils (%) (Auto) 1 % (0-3) Neutrophils # (Auto) 9.5 x10^3/uL (1.8-7.7) Lymphocytes # (Auto) 2.3 x10^3/uL (1.0-4.8) Monocytes # (Auto) 0.9 x10^3/uL (0.0-1.1) Eosinophils # (Auto) 0.1 x10^3/uL (0.0-0.7) Basophils # (Auto) 0.1 x10^3/uL (0.0-0.2) Sodium Level 148 mmol/L (136-145) Potassium Level 3.4 mmol/L (3.5-5.1) Chloride Level 111 mmol/L (98-107) Carbon Dioxide Level 27 mmol/L (21-32) Anion Gap 10 (6-14) Blood Urea Nitrogen 39 mg/dL (7-20) Creatinine 1.2 mg/dL (0.6-1.0) Estimated GFR (Cockcroft-Gault) 47.7 Glucose Level 208 mg/dL (70-99) Calcium Level 10.6 mg/dL (8.5-10.1) Glucose (Fingerstick) 233 mg/dL (70-99) 166 mg/dL (70-99) 529 mg/dL (70-99) Test 09/22/19 02:24 09/22/19 06:20 Glucose (Fingerstick) 182 mg/dL (70-99) 147 mg/dL (70-99) White Blood Count 12.3 x10^3/uL (4.0-11.0) Red Blood Count 2.80 x10^6/uL (3.50-5.40) Hemoglobin 7.7 g/dL (12.0-15.5) Hematocrit 24.8 % (36.0-47.0) Mean Corpuscular Volume 89 fL (79-100) Mean Corpuscular Hemoglobin 28 pg (25-35) Mean Corpuscular Hemoglobin Concent 31 g/dL (31-37) Red Cell Distribution Width 20.2 % (11.5-14.5) Platelet Count 551 x10^3/uL (140-400) Neutrophils (%) (Auto) 73 % (31-73) Lymphocytes (%) (Auto) 17 % (24-48) Monocytes (%) (Auto) 8 % (0-9) Eosinophils (%) (Auto) 1 % (0-3) Basophils (%) (Auto) 0 % (0-3) Neutrophils # (Auto) 9.0 x10^3/uL (1.8-7.7) Lymphocytes # (Auto) 2.1 x10^3/uL (1.0-4.8) Monocytes # (Auto) 1.0 x10^3/uL (0.0-1.1) Eosinophils # (Auto) 0.2 x10^3/uL (0.0-0.7) Basophils # (Auto) 0.0 x10^3/uL (0.0-0.2) Sodium Level 150 mmol/L (136-145) Potassium Level 3.4 mmol/L (3.5-5.1) Chloride Level 113 mmol/L (98-107) Carbon Dioxide Level 26 mmol/L (21-32) Anion Gap 11 (6-14) Blood Urea Nitrogen 42 mg/dL (7-20) Creatinine 1.2 mg/dL (0.6-1.0) Estimated GFR (Cockcroft-Gault) 47.7 Glucose Level 154 mg/dL (70-99) Calcium Level 10.5 mg/dL (8.5-10.1) Phosphorus Level 3.0 mg/dL (2.6-4.7) Magnesium Level 2.5 mg/dL (1.8-2.4) Triglycerides Level 449 mg/dL (0-150) Laboratory Tests Test 09/21/19 12:57 09/21/19 18:20 09/22/19 02:21 09/22/19 02:24 Glucose (Fingerstick) 233 mg/dL (70-99) 166 mg/dL (70-99) 529 mg/dL (70-99) 182 mg/dL (70-99) Test 09/22/19 06:20 White Blood Count 12.3 x10^3/uL (4.0-11.0) Red Blood Count 2.80 x10^6/uL (3.50-5.40) Hemoglobin 7.7 g/dL (12.0-15.5) Hematocrit 24.8 % (36.0-47.0) Mean Corpuscular Volume 89 fL (79-100) Mean Corpuscular Hemoglobin 28 pg (25-35) Mean Corpuscular Hemoglobin Concent 31 g/dL (31-37) Red Cell Distribution Width 20.2 % (11.5-14.5) Platelet Count 551 x10^3/uL (140-400) Neutrophils (%) (Auto) 73 % (31-73) Lymphocytes (%) (Auto) 17 % (24-48) Monocytes (%) (Auto) 8 % (0-9) Eosinophils (%) (Auto) 1 % (0-3) Basophils (%) (Auto) 0 % (0-3) Neutrophils # (Auto) 9.0 x10^3/uL (1.8-7.7) Lymphocytes # (Auto) 2.1 x10^3/uL (1.0-4.8) Monocytes # (Auto) 1.0 x10^3/uL (0.0-1.1) Eosinophils # (Auto) 0.2 x10^3/uL (0.0-0.7) Basophils # (Auto) 0.0 x10^3/uL (0.0-0.2) Sodium Level 150 mmol/L (136-145) Potassium Level 3.4 mmol/L (3.5-5.1) Chloride Level 113 mmol/L (98-107) Carbon Dioxide Level 26 mmol/L (21-32) Anion Gap 11 (6-14) Blood Urea Nitrogen 42 mg/dL (7-20) Creatinine 1.2 mg/dL (0.6-1.0) Estimated GFR (Cockcroft-Gault) 47.7 Glucose Level 154 mg/dL (70-99) Glucose (Fingerstick) 147 mg/dL (70-99) Calcium Level 10.5 mg/dL (8.5-10.1) Phosphorus Level 3.0 mg/dL (2.6-4.7) Magnesium Level 2.5 mg/dL (1.8-2.4) Triglycerides Level 449 mg/dL (0-150) Medications Active Scripts Medications Dose Route/Sig Max Daily Dose Days Date Category Bisoprolol Fumarate 5 Mg Tablet 10 Mg PO DAILY 07/04/19 Reported Impression . IMPRESSION: 1. Acute hypoxemic respiratory failure secondary to ARDS status post trach, 2. Gallstone pancreatitis 3. Severe metabolic acidosis.stable 4. Acute kidney injury-stable, Off HD-- continue to improve 5. Acute gallstone pancreatitis. 6. Hypoalbuminemia. 7. Moderate persistent effusions, s/p left thora 08/29 8. Fever- Per ID, per surgery--resolved 9. Chronic anemia 10. Covid 19 testing negative 11. Moderate to large ascites-S/P paracentisis 12.S/P paracentisis with 4 liters removed on 08/03/19 13. S/P IR drain placement on 08/26/2019 14. Depression/Anxiety Plan . 1.Continue supplemental oxygen via trach shield-- PMV/capping as tolerated/ prn suction. 2. s/p thoracentesis, 08/29, 3 litres removed 3. Follow surgery recs-- S/P 3 drain placed in IR on 08/26/2019 4. Follow ID recs for ABX-- currently off ABX 5. Follow nephrology recs 6. Continue TPN DVT/GI PPX: lovenox / protonix PT/OT D/W RN and pt CODE:FULL VINAYAK LANDRUM MD Sep 22, 2019 09:48
--- NOTE | 2019-09-22 09:55 | PDOC ---
Subjective: Subjective: I asked if she was hanging in there - she said "trying." Objective: Objective: D/w nurse - wants narcotics, starting anti-depressant, doesn't seem motivated to help herself sometimes - could suction herself but on her call light to have nurse do it. Vital Signs: Vital Signs Date Time Temp Pulse Resp B/P (MAP) Pulse Ox O2 Delivery O2 Flow Rate FiO2 09/22/19 08:39 25 95 Room Air 09/22/19 07:00 99.2 112 128/75 (92) 99.2 09/21/19 14:04 10.0 Labs: Laboratory Tests Test 09/21/19 12:57 09/21/19 18:20 09/22/19 02:21 09/22/19 02:24 Glucose (Fingerstick) 233 mg/dL 166 mg/dL 529 mg/dL 182 mg/dL Test 09/22/19 06:20 White Blood Count 12.3 x10^3/uL Red Blood Count 2.80 x10^6/uL Hemoglobin 7.7 g/dL Hematocrit 24.8 % Mean Corpuscular Volume 89 fL Mean Corpuscular Hemoglobin 28 pg Mean Corpuscular Hemoglobin Concent 31 g/dL Red Cell Distribution Width 20.2 % Platelet Count 551 x10^3/uL Neutrophils (%) (Auto) 73 % Lymphocytes (%) (Auto) 17 % Monocytes (%) (Auto) 8 % Eosinophils (%) (Auto) 1 % Basophils (%) (Auto) 0 % Neutrophils # (Auto) 9.0 x10^3/uL Lymphocytes # (Auto) 2.1 x10^3/uL Monocytes # (Auto) 1.0 x10^3/uL Eosinophils # (Auto) 0.2 x10^3/uL Basophils # (Auto) 0.0 x10^3/uL Sodium Level 150 mmol/L Potassium Level 3.4 mmol/L Chloride Level 113 mmol/L Carbon Dioxide Level 26 mmol/L Anion Gap 11 Blood Urea Nitrogen 42 mg/dL Creatinine 1.2 mg/dL Estimated GFR (Cockcroft-Gault) 47.7 Glucose Level 154 mg/dL Glucose (Fingerstick) 147 mg/dL Calcium Level 10.5 mg/dL Phosphorus Level 3.0 mg/dL Magnesium Level 2.5 mg/dL Triglycerides Level 449 mg/dL PE: GEN: NAD, up to chair LUNGS: trach/cap HEART: tachycardic ABD: S/ND/NT NEURO/PSYCH: A & O 3 A/P: Pancreatitis, MOSF -- Encouraged her to keep trying to get better. Justicifation of Admission Dx: Justifications for Admission: Justification of Admission Dx: Yes CYNDEE FALCON Sep 22, 2019 09:55
--- NOTE | 2019-09-22 10:36 | NUR ---
RN discussed patient's depressed, un-motivated state with Dr. Dos Santos. Order received to start Prozac, Fentanyl patch. Will discuss with surgery, GI topic of TF being started. Patient will not keep speaking valve on long enough for thickened liquids. RN has educated patient on need to wear valve and registered nurse cardiovascular icu multiple times. Patient removes it as soon as it is placed on. Patient is currently up in recliner w/ assistance from PT/OT. Did not want to get out of bed. RN will have patient walk again later in shift.
--- NOTE | 2019-09-22 11:07 | PDOC ---
[employer] PROGRESS NOTE Chief Complaint Chief Complaint Acute hypoxic Respiratory failure requiring mechanical ventilation (now extubated for several days but still with tracheostomy) Tracheostomy bilateral pleural effusions/pulm edema Sepsis Severe Acute gallstone pancreatitis (not a surgical candidate at this time) with necrosis Acute kidney failure now requiring dialysis Salpingitis Gallstones (Calculus of gallbladder with acute cholecystitis without obstruc tion) HTN Leukocytosis Hypoxia Uterine fibroid Intractable pain Intractable nausea Covid 19 negative. Acute on chronic anemia EEG: No seizure activityFever - better currently - intermittent could be from underlying pancreatitis blood cults 08/21 - neg so far ? Ileus with vomiting Abd distention - U/S and CT reviewed s/p 0.4 L of opaque, debris-containing ascites was removed 08/23 Acute pancreatitis with persistent necrosis - 08/14 status post KAYLIN drain placement + C paropsilosis. s/p additional drains 08/25 Anemia - S/p PRBCs Cholelithiasis with thickening of the gallbladder wall. Leucocytosis improving JUANA, hyperkalemia, Metabolic acidosis off dialysis Acute hypoxic resp failure ,bilateral pleural effusion and atelectasis hypocalcemia Prediabetes HTN s/p trach ESRD on HD Hyperglycemia History of Present Illness History of Present Illness 09/22/2019 Patient seen and examined in the ICU She remains critically ill is is extremely weak Chart reviewed Discussed with RN We decided to try some Prozac as she does seem depressed On IV TPN Still has NG tube 09/21/2019 Patient seen and examined in the ICU She remains critically ill We have been trying to hold off on her Ativan for the past 24 hours She is a little more awake but shaky and agitated and anxious seems depressed Discussed with RN Chart reviewed 09/20/2019 Patient seen and examined in the ICU She is a little more alert today but still quite ill Appears clammy and pale and depressed/anxious Discussed with RN Chart reviewed 09/19/2019 Patient seen and examined in the ICU She appears extremely ill She is tachypneic at 35 respirations per minute and tachycardic at 132 bpm She is extremely encephalopathic and shaky She appears clammy Chart reviewed Discussed with RN Prognosis extremely guarded at best 09/18/2019 Patient still in ICU Resting with no apparent distress Chart reviewed 09/17/2019 Patient seen and examined in the ICU She is wiping her face with a cough Discussed with RN Chart reviewed We hope to get her out of the ICU later today if possible 09/16/2019 Patient seen and examined in the ICU once again She is back on NG suction On IV Zosyn Has IV TPN Sedated with Precedex but anxious still Appears somewhat clammy and pale Chart reviewed Discussed with RN She remains critically ill 09/15/2019 Patient seen and examined in the ICU She has an NG that is clamped we are hoping to start some clear liquids but she looks quite ill She is on IV TPN Meropenem changed to IV Zosyn (agree) She has Lind to bedside drainage She is semi-sedated with Precedex Chart reviewed Discussed with RN She remains critically ill Seen bedside. Hb 8. She was just a bit hypoxic, had a mucous plug suctioned. Able to vocalize well with speaking valve, tells me we are being very hard on her and she would like to be drugged back to sleep. She wants to wake up and feel better. On trach shield, T max 100.4. afebrile this a.m. 09/13/2019 Patient seen and examined in the ICU She is up in the chair very frail trying to talk a little shaky Discussed with RN Chart reviewed 09/12/2019 Patient seen and examined in the ICU Patient up in the chair Having a severe coughing episode with a lot of phlegm coming out of her tracheostomy Discussed with RN Discussed with physical therapy Chart reviewed 09/10,. feels well, has been out of room in wheelchair no complaint, still weak, some with not wanting to wear her valve on trach cont other, may be able to work with speech tomorrow, [place]allow OK to try, 09/09, anxiety is up today, she dislikes the valve still, shower and outside today . 09/08 she doesnt want to wear her passy-fantasma valve, discussed str and plan with her. speech following, needs swallow study, but needs to wear her valve longer, cont current able to walk some, walker 09/07 stronger, better, we discussed better oral care she would like to try swallow study, wants to try to eat, speech is following 09/07/2019 She remains in the ICU sitting up and working with OT, getting better if limit pain meds, may do better off the vent, Nurses trying to suction her, that is also improved, Chart reviewed 09/06/2019 Patient seen and examined in the ICU She had an episode yesterday of tachycardia and severe agitation we gave her some Ativan After that she seemed to have stroke symptoms but now that the Ativan has wore off her stroke symptoms have resolved She is on IV meropenem and daptomycin and micafungin Chart reviewed Discussed with RN Patient is still critically ill BRIEF OPERATIVE NOTE Pre-Op Diagnosis Pancreatitis with pseudocysts, suspected infection Post-Op Diagnosis same Procedure Performed CT abdominal Drains x 3 Surgeon Tesfaye Anesthesia Type: Conscious Sedation Findings 3 abdominal drains, 14F, with turbid pancreatic fluid and necrotic debris in each. Complications No immediate 08/26: Patient today somewhat restless and having bilious secretions from ET tube, imaging studies ordered, discussed with industrial rehabilitation consultant. Pretty poor prognosis, hopefully is not a fistula, poor surgical candidate. 08/27: Imaging with no acute events, she seems more stable today compared to yesterday. Encouraged as much activity as possible patient at high risk for severe depression. Vitals/I&O Vitals/I&O: Vital Signs Date Time Temp Pulse Resp B/P (MAP) Pulse Ox O2 Delivery O2 Flow Rate FiO2 09/22/19 09:10 24 96 Room Air 09/22/19 07:00 99.2 112 128/75 (92) 99.2 09/21/19 14:04 10.0 I & O 09/21/19 09/21/19 09/22/19 15:00 23:00 07:00 Intake Total 10 ml Output Total 450 ml 645 ml 285 ml Balance -450 ml -635 ml -285 ml Physical Exam Physical Exam: GENERAL: Propped up in bed,, weak appearing see above HEENT: Oral cavity clear, NGT NECK: Trach present LUNGS: Clear, nonlabored HEART: S1, S2, regular ABDOMEN: mod distention, bowel sounds present, : Lind (08/01) EXTREMITIES: Generalized edema. no cyanosis SKIN: Cool clammy and pale POKER IN:Opens eyes to voice, very weak LUE-PICC (09/15) without signsof complications General: Alert, Cooperative, mild distress Heart: Regular rate, Normal S1, Normal S2, No murmurs, Gallops Lungs: Other (diminshed in bases ) Abdomen: Normal bowel sounds, Soft, No tenderness, Other (Wounds clean dry and intact) Extremities: No clubbing, No cyanosis, No edema, Normal pulses, No tenderness/swelling Skin: Other (warm, dry) Labs Labs: Laboratory Tests Test 09/21/19 12:57 09/21/19 18:20 09/22/19 02:21 09/22/19 02:24 Glucose (Fingerstick) 233 mg/dL (70-99) 166 mg/dL (70-99) 529 mg/dL (70-99) 182 mg/dL (70-99) Test 09/22/19 06:20 White Blood Count 12.3 x10^3/uL (4.0-11.0) Red Blood Count 2.80 x10^6/uL (3.50-5.40) Hemoglobin 7.7 g/dL (12.0-15.5) Hematocrit 24.8 % (36.0-47.0) Mean Corpuscular Volume 89 fL (79-100) Mean Corpuscular Hemoglobin 28 pg (25-35) Mean Corpuscular Hemoglobin Concent 31 g/dL (31-37) Red Cell Distribution Width 20.2 % (11.5-14.5) Platelet Count 551 x10^3/uL (140-400) Neutrophils (%) (Auto) 73 % (31-73) Lymphocytes (%) (Auto) 17 % (24-48) Monocytes (%) (Auto) 8 % (0-9) Eosinophils (%) (Auto) 1 % (0-3) Basophils (%) (Auto) 0 % (0-3) Neutrophils # (Auto) 9.0 x10^3/uL (1.8-7.7) Lymphocytes # (Auto) 2.1 x10^3/uL (1.0-4.8) Monocytes # (Auto) 1.0 x10^3/uL (0.0-1.1) Eosinophils # (Auto) 0.2 x10^3/uL (0.0-0.7) Basophils # (Auto) 0.0 x10^3/uL (0.0-0.2) Sodium Level 150 mmol/L (136-145) Potassium Level 3.4 mmol/L (3.5-5.1) Chloride Level 113 mmol/L (98-107) Carbon Dioxide Level 26 mmol/L (21-32) Anion Gap 11 (6-14) Blood Urea Nitrogen 42 mg/dL (7-20) Creatinine 1.2 mg/dL (0.6-1.0) Estimated GFR (Cockcroft-Gault) 47.7 Glucose Level 154 mg/dL (70-99) Glucose (Fingerstick) 147 mg/dL (70-99) Calcium Level 10.5 mg/dL (8.5-10.1) Phosphorus Level 3.0 mg/dL (2.6-4.7) Magnesium Level 2.5 mg/dL (1.8-2.4) Triglycerides Level 449 mg/dL (0-150) Assessment and Plan Assessmemt and Plan Problems Medical Problems: (1) Acute pancreatitis Status: Acute (2) Cholelithiasis Status: Acute Acute hypoxic Respiratory failure requiring mechanical ventilation was initially intubated on 07/10 was off for couple of days now back on Severe gallstone pancreatitis (not a surgical candidate at this time) with nec rosis Tracheostomy bilateral pleural effusions/pulm edema Severe sepsis Acute kidney failure now requiring dialysis Salpingitis Gallstones (Calculus of gallbladder with acute cholecystitis without obstruction) HTN Leukocytosis Hypoxia Uterine fibroid Intractable pain Intractable nausea Covid 19 negative. Acute on chronic anemia EEG: No seizure activityFever - better currently - intermittent could be from underlying pancreatitis blood cults 08/21 - neg so far ? Ileus with vomiting Abd distention - U/S and CT reviewed s/p 0.4 L of opaque, debris-containing ascites was removed 08/23 Acute pancreatitis with persistent necrosis - 08/14 status post KAYLIN drain placement + C paropsilosis. s/p additional drains 08/25 Anemia - S/p PRBCs Cholelithiasis with thickening of the gallbladder wall. Leucocytosis improving JUANA, hyperkalemia, Metabolic acidosis off dialysis Acute hypoxic resp failure ,bilateral pleural effusion and atelectasis hypocalcemia Prediabetes HTN s/p trach ESRD on HD Hyperglycemia Plan ICU monitoring Wound care Trying to minimize sedation but she gets anxious so easily Humidified O2 via nasal cannula for now but we can use trach shield as backup NG suctioning IV Zosyn Nebulizers TPN protocol Continue Lind to bedside drainage Tracheostomy care Hope to eventually move towards decannulation (we have a speaking valve for now) Trend labs Add Prozac 20 mg per NG daily Appreciate subspecialist input Prognosis extremely guarded at best! (she scored a 9 on [place] criteria 5 weeks ago). She is still very critically ill (perhaps 1 or 2% improvement overnight) Total time 32 Comment Review of Relevant I have reviewed the following items kolby (where applicable) has been applied. Medications: Current Medications Medications (Trade) Dose Ordered Sig/Yvon Route PRN Reason Start Time Stop Time Status Last Admin Dose Admin Potassium Chloride 90 meq/ Magnesium Sulfate 20 meq/ Multivitamins 10 ml/Chromium/ Copper/Manganese/ Seleni/Zn 1 ml/ Insulin Human Regular 20 unit/ Total Parenteral Nutrition/Amino Acids/Dextrose/ Fat Emulsion Intravenous 1,800 ml @ 75 mls/hr TPN CONT IV 09/21/19 22:00 09/22/19 21:59 09/21/19 23:13 Furosemide (Lasix) 40 mg DAILY IVP 09/21/19 13:30 09/22/19 08:38 Justicifation of Admission Dx: Justifications for Admission: Justification of Admission Dx: Yes BEBO KIRBY III DO Sep 22, 2019 11:07
[2019-09-22] MEDS: TPN PER PHARMACY MC PRN (13:31)
--- NOTE | 2019-09-22 13:35 | NUR ---
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, 8 inches Weight: 68.5 kg Current diet: NPO LABS: Sodium: 150 Potassium: 3.4 Chloride: 113 Calcium: 10.5 Corrected Calcium: 12.10 Magnesium: 2.5 CO2: 26 SCr: 1.2 Glucose: 147-182 Albumin: 2.0 AST: 15 ALT: 14 TPN FORMULA: TPN TYPE: Central Continuous AMINO ACIDS: 75 gm DEXTROSE: 250 gm LIPIDS: 20 gm POTASSIUM CHLORIDE: 40 mEq POTASSIUM ACETATE: 60 mEq MAGNESIUM: 10 mEq INSULIN: 20 units MULTIPLE VITAMIN: 10 ml TRACE ELEMENTS: 1 ml(s) TPN PLAN: Elevated triglycerides today - lipids decreased to 20g Potassium and magnesium adjusted in TPN per labs. R: Change TPN per plan and ordered formula Will monitor electrolytes, glucose, and tolerance to TPN. Raeann Mcdonnell [facility], 09/22/19 1700
--- NOTE | 2019-09-22 15:01 | NUR ---
SS following up with discharge planning. SS reviewed pt chart and discussed with pt RN. Pt is currently on room air. PT/OT continue to work with pt. Pt now off IV antibiotics. Pt still NPO and refusing to wear cap on trach. Pt remains on TPN. SS will continue to follow for discharge planning.
[2019-09-22] MEDS: ENOXAPARIN 40 MG/0.4 ML SYRINGE. SQ SCH (18:03)
--- NOTE | 2019-09-22 18:52 | NUR ---
Per Dr. Singh, no tube feeding to be started at this time. Will discuss w/ Dr. Servin tomorrow. Okay with giving antidepressant via NG tube.
--- NOTE | 2019-09-22 20:00 | NUR ---
Transferred from ICU to [facility] room 202. Alert. Jamaal Davison, at bedside. Orientated patient to room and call light. Resting in bed with call light at hand.
--- NOTE | 2019-09-22 20:30 | NUR ---
Pt was up in chair and now back in bed with 2 person assist. States she doesn't want to move but talked with her about why she needed to and how much better she was now. Moved to room 202 per bed.
[2019-09-22] MEDS: fentaNYL 50MCG/HR PATCH 1 PATCH PATCH.TD72 TD SCH (21:22)
[2019-09-22] MEDS ORDERED: TOTAL PARENTERAL NUTRITION IV SCH ×9 (22:00)
[2019-09-22] MEDS ORDERED: [UNRECOGNIZED DRUG - OTHER] IV SCH ×9 (22:00)
[2019-09-22] MEDS ORDERED: DEXTROSE 70% IV SCH ×9 (22:00)
[2019-09-22] MEDS ORDERED: AMINO ACID IV SCH ×9 (22:00)
--- NOTE | 2019-09-22 23:52 | NUR ---
Patient request for trach to be cleaned. Cleaned trach with sterile technique. Cleaned thick white mucous plug from trach while soaking in trach kit. Placed trach back. Patient seemed at ease with having clean trach canula. Resting in bed with call light at hand.
[2019-09-23] VITALS (11 sets, daily range): BP systolic 81–143; BP diastolic 55–93
[2019-09-23] MEDS: INSULIN LISPRO 300 UNITS/3 ML VIAL. SQ SCH ×6 (00:04→23:37)
[2019-09-23] MEDS: fentaNYL PF VIAL 100 MCG/2 ML VIAL IVP PRN ×4 (01:08→23:45)
[2019-09-23] MEDS: ONDANSETRON PF 4 MG/2 ML VIAL. IV PRN ×2 (02:20→06:33)
[2019-09-23 05:48] LABS: BASO % 0 % (0-3); EOS # 0.2 x10^3/uL (0.0-0.7); EOS % 2 % (0-3); HEMATOCRIT 29.6 % (36.0-47.0); HEMOGLOBIN 9.3 g/dL (12.0-15.5); LYMPH # 2.2 x10^3/uL (1.0-4.8); LYMPH % 20 % (24-48); MEAN CORPUSCULAR HEMOGLOBIN 28 pg (25-35); MEAN CORPUSCULAR HGB CONC 31 g/dL (31-37); MEAN CORPUSCULAR VOLUME 90 fL (79-100); MONO # 0.7 x10^3/uL (0.0-1.1); MONO % 7 % (0-9); NEUT % 72 % (31-73); PLATELET COUNT 583 x10^3/uL (140-400); RED CELL DISTRIBUTION WIDTH 20.7 % (11.5-14.5); WHITE BLOOD COUNT 11.1 x10^3/uL (4.0-11.0)
[2019-09-23 05:58] LABS: CREATININE 1.3 mg/dL (0.6-1.0); GFR 43.5; MAGNESIUM 2.6 mg/dL (1.8-2.4); PHOSPHORUS 4.4 mg/dL (2.6-4.7)
[2019-09-23] MEDS: PANTOPRAZOLE IV PUSH 40 MG VIAL. IVP SCH (07:26)
--- NOTE | 2019-09-23 08:19 | PDOC ---
Infectious Disease Note Subjective Subjective awake in bed, nodes that she is ok ROS ROS No nausea vomiting diarrhea fever Vital Sign Vital Signs Vital Signs Date Time Temp Pulse Resp B/P (MAP) Pulse Ox O2 Delivery O2 Flow Rate FiO2 09/23/19 07:25 93 Room Air 10.0 09/23/19 02:54 98.3 118 20 143/93 (110) 98.3 Physical Exam PHYSICAL EXAM GENERAL: Propped up in bed,, weak appearing see above HEENT: Oral cavity clear, NGT NECK: Trach present LUNGS: Clear, nonlabored HEART: S1, S2, regular ABDOMEN: mod distention, bowel sounds present, : Lind (08/01) EXTREMITIES: Generalized edema. no cyanosis SKIN: Cool clammy and pale SAP PPM CONSULTANT:Opens eyes to voice, very weak LUE-PICC (09/15) without signsof complications Labs Lab Laboratory Tests Test 09/22/19 12:53 09/22/19 18:08 09/22/19 22:50 09/23/19 05:15 Glucose (Fingerstick) 174 mg/dL (70-99) 139 mg/dL (70-99) 202 mg/dL (70-99) White Blood Count 11.1 x10^3/uL (4.0-11.0) Red Blood Count 3.30 x10^6/uL (3.50-5.40) Hemoglobin 9.3 g/dL (12.0-15.5) Hematocrit 29.6 % (36.0-47.0) Mean Corpuscular Volume 90 fL (79-100) Mean Corpuscular Hemoglobin 28 pg (25-35) Mean Corpuscular Hemoglobin Concent 31 g/dL (31-37) Red Cell Distribution Width 20.7 % (11.5-14.5) Platelet Count 583 x10^3/uL (140-400) Neutrophils (%) (Auto) 72 % (31-73) Lymphocytes (%) (Auto) 20 % (24-48) Monocytes (%) (Auto) 7 % (0-9) Eosinophils (%) (Auto) 2 % (0-3) Basophils (%) (Auto) 0 % (0-3) Neutrophils # (Auto) 8.0 x10^3/uL (1.8-7.7) Lymphocytes # (Auto) 2.2 x10^3/uL (1.0-4.8) Monocytes # (Auto) 0.7 x10^3/uL (0.0-1.1) Eosinophils # (Auto) 0.2 x10^3/uL (0.0-0.7) Basophils # (Auto) 0.0 x10^3/uL (0.0-0.2) Sodium Level 151 mmol/L (136-145) Potassium Level 4.0 mmol/L (3.5-5.1) Chloride Level 114 mmol/L (98-107) Carbon Dioxide Level 25 mmol/L (21-32) Anion Gap 12 (6-14) Blood Urea Nitrogen 50 mg/dL (7-20) Creatinine 1.3 mg/dL (0.6-1.0) Estimated GFR (Cockcroft-Gault) 43.5 Glucose Level 194 mg/dL (70-99) Calcium Level 11.0 mg/dL (8.5-10.1) Phosphorus Level 4.4 mg/dL (2.6-4.7) Magnesium Level 2.6 mg/dL (1.8-2.4) Test 09/23/19 06:22 Glucose (Fingerstick) 218 mg/dL (70-99) Micro Objective Assessment Fever intermittent could be from underlying pancreatitis vs aspiration ? Ileus with vomiting Abd distention - U/S and CT reviewed s/p 0.4 L of opaque, debris-containing ascites was removed 08/23 Acute pancreatitis with persistent necrosis - 08/14 status post KAYLIN drain placement + C paropsilosis; 08/23 + yeast & high amylase; s/p additional drains on 08/25 Anemia - S/p PRBCs Cholelithiasis with thickening of the gallbladder wall. Leucocytosis improved JUANA, hyperkalemia, Metabolic acidosis off dialysis Acute hypoxic resp failure ,bilateral pleural effusion and atelectasis hypocalcemia Prediabetes HTN s/p trach Plan Plan of Care Off antibiotics f/u labs/cath tip culture Aggressive pulmonary toilet Maintain aspiration precaution Supportive care PT and OT as tolerated D/w nursing KIMMY JONES MD Sep 23, 2019 08:19
--- NOTE | 2019-09-23 08:25 | PDOC ---
SURGICAL PROGRESS NOTE Subjective Pt appears comfortable, awake Vital Signs Vital Signs Date Time Temp Pulse Resp B/P (MAP) Pulse Ox O2 Delivery O2 Flow Rate FiO2 09/23/19 07:25 93 Room Air 10.0 09/23/19 07:00 98.0 121 22 135/88 (104) 98.0 I&O Intake and Output 09/23/19 07:00 Intake Total 872 ml Output Total 1425 ml Balance -553 ml Intake Oral 0 ml IV Total 872 ml Output Urine Total 1425 ml # Bowel Movements 1 General: Alert, Cooperative, No acute distress Abdomen: Soft, No tenderness Labs Laboratory Tests Test 09/21/19 12:57 09/21/19 18:20 09/22/19 02:21 09/22/19 02:24 Glucose (Fingerstick) 233 mg/dL (70-99) 166 mg/dL (70-99) 529 mg/dL (70-99) 182 mg/dL (70-99) Test 09/22/19 06:20 09/22/19 12:53 09/22/19 18:08 09/22/19 22:50 White Blood Count 12.3 x10^3/uL (4.0-11.0) Red Blood Count 2.80 x10^6/uL (3.50-5.40) Hemoglobin 7.7 g/dL (12.0-15.5) Hematocrit 24.8 % (36.0-47.0) Mean Corpuscular Volume 89 fL (79-100) Mean Corpuscular Hemoglobin 28 pg (25-35) Mean Corpuscular Hemoglobin Concent 31 g/dL (31-37) Red Cell Distribution Width 20.2 % (11.5-14.5) Platelet Count 551 x10^3/uL (140-400) Neutrophils (%) (Auto) 73 % (31-73) Lymphocytes (%) (Auto) 17 % (24-48) Monocytes (%) (Auto) 8 % (0-9) Eosinophils (%) (Auto) 1 % (0-3) Basophils (%) (Auto) 0 % (0-3) Neutrophils # (Auto) 9.0 x10^3/uL (1.8-7.7) Lymphocytes # (Auto) 2.1 x10^3/uL (1.0-4.8) Monocytes # (Auto) 1.0 x10^3/uL (0.0-1.1) Eosinophils # (Auto) 0.2 x10^3/uL (0.0-0.7) Basophils # (Auto) 0.0 x10^3/uL (0.0-0.2) Sodium Level 150 mmol/L (136-145) Potassium Level 3.4 mmol/L (3.5-5.1) Chloride Level 113 mmol/L (98-107) Carbon Dioxide Level 26 mmol/L (21-32) Anion Gap 11 (6-14) Blood Urea Nitrogen 42 mg/dL (7-20) Creatinine 1.2 mg/dL (0.6-1.0) Estimated GFR (Cockcroft-Gault) 47.7 Glucose Level 154 mg/dL (70-99) Glucose (Fingerstick) 147 mg/dL (70-99) 174 mg/dL (70-99) 139 mg/dL (70-99) 202 mg/dL (70-99) Calcium Level 10.5 mg/dL (8.5-10.1) Phosphorus Level 3.0 mg/dL (2.6-4.7) Magnesium Level 2.5 mg/dL (1.8-2.4) Triglycerides Level 449 mg/dL (0-150) Test 09/23/19 05:15 09/23/19 06:22 White Blood Count 11.1 x10^3/uL (4.0-11.0) Red Blood Count 3.30 x10^6/uL (3.50-5.40) Hemoglobin 9.3 g/dL (12.0-15.5) Hematocrit 29.6 % (36.0-47.0) Mean Corpuscular Volume 90 fL (79-100) Mean Corpuscular Hemoglobin 28 pg (25-35) Mean Corpuscular Hemoglobin Concent 31 g/dL (31-37) Red Cell Distribution Width 20.7 % (11.5-14.5) Platelet Count 583 x10^3/uL (140-400) Neutrophils (%) (Auto) 72 % (31-73) Lymphocytes (%) (Auto) 20 % (24-48) Monocytes (%) (Auto) 7 % (0-9) Eosinophils (%) (Auto) 2 % (0-3) Basophils (%) (Auto) 0 % (0-3) Neutrophils # (Auto) 8.0 x10^3/uL (1.8-7.7) Lymphocytes # (Auto) 2.2 x10^3/uL (1.0-4.8) Monocytes # (Auto) 0.7 x10^3/uL (0.0-1.1) Eosinophils # (Auto) 0.2 x10^3/uL (0.0-0.7) Basophils # (Auto) 0.0 x10^3/uL (0.0-0.2) Sodium Level 151 mmol/L (136-145) Potassium Level 4.0 mmol/L (3.5-5.1) Chloride Level 114 mmol/L (98-107) Carbon Dioxide Level 25 mmol/L (21-32) Anion Gap 12 (6-14) Blood Urea Nitrogen 50 mg/dL (7-20) Creatinine 1.3 mg/dL (0.6-1.0) Estimated GFR (Cockcroft-Gault) 43.5 Glucose Level 194 mg/dL (70-99) Calcium Level 11.0 mg/dL (8.5-10.1) Phosphorus Level 4.4 mg/dL (2.6-4.7) Magnesium Level 2.6 mg/dL (1.8-2.4) Glucose (Fingerstick) 218 mg/dL (70-99) Laboratory Tests Test 09/22/19 12:53 09/22/19 18:08 09/22/19 22:50 09/23/19 05:15 Glucose (Fingerstick) 174 mg/dL (70-99) 139 mg/dL (70-99) 202 mg/dL (70-99) White Blood Count 11.1 x10^3/uL (4.0-11.0) Red Blood Count 3.30 x10^6/uL (3.50-5.40) Hemoglobin 9.3 g/dL (12.0-15.5) Hematocrit 29.6 % (36.0-47.0) Mean Corpuscular Volume 90 fL (79-100) Mean Corpuscular Hemoglobin 28 pg (25-35) Mean Corpuscular Hemoglobin Concent 31 g/dL (31-37) Red Cell Distribution Width 20.7 % (11.5-14.5) Platelet Count 583 x10^3/uL (140-400) Neutrophils (%) (Auto) 72 % (31-73) Lymphocytes (%) (Auto) 20 % (24-48) Monocytes (%) (Auto) 7 % (0-9) Eosinophils (%) (Auto) 2 % (0-3) Basophils (%) (Auto) 0 % (0-3) Neutrophils # (Auto) 8.0 x10^3/uL (1.8-7.7) Lymphocytes # (Auto) 2.2 x10^3/uL (1.0-4.8) Monocytes # (Auto) 0.7 x10^3/uL (0.0-1.1) Eosinophils # (Auto) 0.2 x10^3/uL (0.0-0.7) Basophils # (Auto) 0.0 x10^3/uL (0.0-0.2) Sodium Level 151 mmol/L (136-145) Potassium Level 4.0 mmol/L (3.5-5.1) Chloride Level 114 mmol/L (98-107) Carbon Dioxide Level 25 mmol/L (21-32) Anion Gap 12 (6-14) Blood Urea Nitrogen 50 mg/dL (7-20) Creatinine 1.3 mg/dL (0.6-1.0) Estimated GFR (Cockcroft-Gault) 43.5 Glucose Level 194 mg/dL (70-99) Calcium Level 11.0 mg/dL (8.5-10.1) Phosphorus Level 4.4 mg/dL (2.6-4.7) Magnesium Level 2.6 mg/dL (1.8-2.4) Test 09/23/19 06:22 Glucose (Fingerstick) 218 mg/dL (70-99) Problem List Problems Medical Problems: (1) Acute pancreatitis Status: Acute (2) Cholelithiasis Status: Acute Assessment/Plan severe pancreatitis will clamp NGT with anticipation of working towards starting tube feeds. Justicifation of Admission Dx: Justifications for Admission: Justification of Admission Dx: Yes DAVON SIMMS MD Sep 23, 2019 08:25
--- NOTE | 2019-09-23 09:34 | NUR ---
Pt up working with physical therapy. Pt and PT walked down the hallway and back to patient room. Upon entering patient room, pt started to become weakened and PTSveta called out for assistance. PT staff, Hasmukh, assisted. Both staff members, Sveta PT and Hasmukh PT assisted pt to the floor using a gaitbelt. During this episode, patient was having a bowel movement. VS stable before and after episode. Post assisted fall BP 132/72, HR 140, RR 24, T 98.3, and O2 sat 98%. Pt placed back into bed via lift. PT extremely anxious but quickly calmed by presence of staff. Physician on unit at time of episode. No new orders given. Will continue to monitor.
--- NOTE | 2019-09-23 09:57 | NUR ---
SS following up with discharge planning. SS reviewed pt chart and discussed with pt RN. Pt currently on room air. ST cleared for honey thick liquids but pt declining to wear trach cap. Pt walking with PT but had a fall today in room after walking down [place]. SS and Dr. Dos Santos went in room and modeling was observed on legs and pt was trembling. Dr. Dos Santos addressed pt and requested that she wear trach cap today. Dr. Dos Santos reported that if not improved will address hospice with pt and pt's family next week. SS will continue to follow for discharge planning.
--- NOTE | 2019-09-23 10:17 | PDOC ---
PULMONARY PROGRESS NOTES Subjective Patient intubated on 07/10 , s/p trach /, weak cough, requiring assistance with secretions Remains on TS, Awake and alert in chair today, doesn't like PMV Vitals Vital Signs Date Time Temp Pulse Resp B/P (MAP) Pulse Ox O2 Delivery O2 Flow Rate FiO2 09/23/19 10:09 93 Room Air 10.0 09/23/19 07:00 98.0 121 22 135/88 (104) 98.0 ROS: No Nausea, No Chest Pain, No Abdominal Pain, No Increase Cough General: Alert, No acute distress Lungs: Other (diminshed in bases ) Cardiovascular: S1, S2 Abdomen: Soft, Non-tender Neuro Exam: Alert Extremities: Other (+1 BLE edema) Skin: Warm, Dry Labs Laboratory Tests Test 09/21/19 12:57 09/21/19 18:20 09/22/19 02:21 09/22/19 02:24 Glucose (Fingerstick) 233 mg/dL (70-99) 166 mg/dL (70-99) 529 mg/dL (70-99) 182 mg/dL (70-99) Test 09/22/19 06:20 09/22/19 12:53 09/22/19 18:08 09/22/19 22:50 White Blood Count 12.3 x10^3/uL (4.0-11.0) Red Blood Count 2.80 x10^6/uL (3.50-5.40) Hemoglobin 7.7 g/dL (12.0-15.5) Hematocrit 24.8 % (36.0-47.0) Mean Corpuscular Volume 89 fL (79-100) Mean Corpuscular Hemoglobin 28 pg (25-35) Mean Corpuscular Hemoglobin Concent 31 g/dL (31-37) Red Cell Distribution Width 20.2 % (11.5-14.5) Platelet Count 551 x10^3/uL (140-400) Neutrophils (%) (Auto) 73 % (31-73) Lymphocytes (%) (Auto) 17 % (24-48) Monocytes (%) (Auto) 8 % (0-9) Eosinophils (%) (Auto) 1 % (0-3) Basophils (%) (Auto) 0 % (0-3) Neutrophils # (Auto) 9.0 x10^3/uL (1.8-7.7) Lymphocytes # (Auto) 2.1 x10^3/uL (1.0-4.8) Monocytes # (Auto) 1.0 x10^3/uL (0.0-1.1) Eosinophils # (Auto) 0.2 x10^3/uL (0.0-0.7) Basophils # (Auto) 0.0 x10^3/uL (0.0-0.2) Sodium Level 150 mmol/L (136-145) Potassium Level 3.4 mmol/L (3.5-5.1) Chloride Level 113 mmol/L (98-107) Carbon Dioxide Level 26 mmol/L (21-32) Anion Gap 11 (6-14) Blood Urea Nitrogen 42 mg/dL (7-20) Creatinine 1.2 mg/dL (0.6-1.0) Estimated GFR (Cockcroft-Gault) 47.7 Glucose Level 154 mg/dL (70-99) Glucose (Fingerstick) 147 mg/dL (70-99) 174 mg/dL (70-99) 139 mg/dL (70-99) 202 mg/dL (70-99) Calcium Level 10.5 mg/dL (8.5-10.1) Phosphorus Level 3.0 mg/dL (2.6-4.7) Magnesium Level 2.5 mg/dL (1.8-2.4) Triglycerides Level 449 mg/dL (0-150) Test 09/23/19 05:15 09/23/19 06:22 09/23/19 09:42 White Blood Count 11.1 x10^3/uL (4.0-11.0) Red Blood Count 3.30 x10^6/uL (3.50-5.40) Hemoglobin 9.3 g/dL (12.0-15.5) Hematocrit 29.6 % (36.0-47.0) Mean Corpuscular Volume 90 fL (79-100) Mean Corpuscular Hemoglobin 28 pg (25-35) Mean Corpuscular Hemoglobin Concent 31 g/dL (31-37) Red Cell Distribution Width 20.7 % (11.5-14.5) Platelet Count 583 x10^3/uL (140-400) Neutrophils (%) (Auto) 72 % (31-73) Lymphocytes (%) (Auto) 20 % (24-48) Monocytes (%) (Auto) 7 % (0-9) Eosinophils (%) (Auto) 2 % (0-3) Basophils (%) (Auto) 0 % (0-3) Neutrophils # (Auto) 8.0 x10^3/uL (1.8-7.7) Lymphocytes # (Auto) 2.2 x10^3/uL (1.0-4.8) Monocytes # (Auto) 0.7 x10^3/uL (0.0-1.1) Eosinophils # (Auto) 0.2 x10^3/uL (0.0-0.7) Basophils # (Auto) 0.0 x10^3/uL (0.0-0.2) Sodium Level 151 mmol/L (136-145) Potassium Level 4.0 mmol/L (3.5-5.1) Chloride Level 114 mmol/L (98-107) Carbon Dioxide Level 25 mmol/L (21-32) Anion Gap 12 (6-14) Blood Urea Nitrogen 50 mg/dL (7-20) Creatinine 1.3 mg/dL (0.6-1.0) Estimated GFR (Cockcroft-Gault) 43.5 Glucose Level 194 mg/dL (70-99) Calcium Level 11.0 mg/dL (8.5-10.1) Phosphorus Level 4.4 mg/dL (2.6-4.7) Magnesium Level 2.6 mg/dL (1.8-2.4) Glucose (Fingerstick) 218 mg/dL (70-99) 177 mg/dL (70-99) Laboratory Tests Test 09/22/19 12:53 09/22/19 18:08 09/22/19 22:50 09/23/19 05:15 Glucose (Fingerstick) 174 mg/dL (70-99) 139 mg/dL (70-99) 202 mg/dL (70-99) White Blood Count 11.1 x10^3/uL (4.0-11.0) Red Blood Count 3.30 x10^6/uL (3.50-5.40) Hemoglobin 9.3 g/dL (12.0-15.5) Hematocrit 29.6 % (36.0-47.0) Mean Corpuscular Volume 90 fL (79-100) Mean Corpuscular Hemoglobin 28 pg (25-35) Mean Corpuscular Hemoglobin Concent 31 g/dL (31-37) Red Cell Distribution Width 20.7 % (11.5-14.5) Platelet Count 583 x10^3/uL (140-400) Neutrophils (%) (Auto) 72 % (31-73) Lymphocytes (%) (Auto) 20 % (24-48) Monocytes (%) (Auto) 7 % (0-9) Eosinophils (%) (Auto) 2 % (0-3) Basophils (%) (Auto) 0 % (0-3) Neutrophils # (Auto) 8.0 x10^3/uL (1.8-7.7) Lymphocytes # (Auto) 2.2 x10^3/uL (1.0-4.8) Monocytes # (Auto) 0.7 x10^3/uL (0.0-1.1) Eosinophils # (Auto) 0.2 x10^3/uL (0.0-0.7) Basophils # (Auto) 0.0 x10^3/uL (0.0-0.2) Sodium Level 151 mmol/L (136-145) Potassium Level 4.0 mmol/L (3.5-5.1) Chloride Level 114 mmol/L (98-107) Carbon Dioxide Level 25 mmol/L (21-32) Anion Gap 12 (6-14) Blood Urea Nitrogen 50 mg/dL (7-20) Creatinine 1.3 mg/dL (0.6-1.0) Estimated GFR (Cockcroft-Gault) 43.5 Glucose Level 194 mg/dL (70-99) Calcium Level 11.0 mg/dL (8.5-10.1) Phosphorus Level 4.4 mg/dL (2.6-4.7) Magnesium Level 2.6 mg/dL (1.8-2.4) Test 09/23/19 06:22 09/23/19 09:42 Glucose (Fingerstick) 218 mg/dL (70-99) 177 mg/dL (70-99) Medications Active Scripts Medications Dose Route/Sig Max Daily Dose Days Date Category Bisoprolol Fumarate 5 Mg Tablet 10 Mg PO DAILY 07/04/19 Reported Impression . IMPRESSION: 1. Acute hypoxemic respiratory failure secondary to ARDS status post trach, 2. Gallstone pancreatitis 3. Severe metabolic acidosis.stable 4. Acute kidney injury-stable, Off HD-- continue to improve 5. Acute gallstone pancreatitis. 6. Hypoalbuminemia. 7. Moderate persistent effusions, s/p left thora 08/29 8. Fever- Per ID, per surgery--resolved 9. Chronic anemia 10. Covid 19 testing negative 11. Moderate to large ascites-S/P paracentisis 12.S/P paracentisis with 4 liters removed on 08/03/19 13. S/P IR drain placement on 08/26/2019 14. Depression/Anxiety Plan . 1.Continue supplemental oxygen via trach shield-- PMV/capping as tolerated/ prn suction. 2. s/p thoracentesis, 08/29, 3 litres removed 3. Follow surgery recs-- S/P 3 drain placed in IR on 08/26/2019 4. Follow ID recs for ABX-- currently off ABX 5. Follow nephrology recs 6. Continue TPN DVT/GI PPX: lovenox / protonix PT/OT D/W RN and pt CODE:FULL VINAYAK LANDRUM MD Sep 23, 2019 10:17
--- NOTE | 2019-09-23 10:40 | PDOC ---
Subjective: Subjective: I saw her earlier this morning. Was sitting on bed w/ therapy - coughing - then didn't want to leave cap on trach. Objective: Objective: D/w nurse and therapy. Vital Signs: Vital Signs Date Time Temp Pulse Resp B/P (MAP) Pulse Ox O2 Delivery O2 Flow Rate FiO2 09/23/19 10:09 93 Room Air 10.0 09/23/19 07:00 98.0 121 22 135/88 (104) 98.0 Labs: Laboratory Tests Test 09/22/19 12:53 09/22/19 18:08 09/22/19 22:50 09/23/19 05:15 Glucose (Fingerstick) 174 mg/dL 139 mg/dL 202 mg/dL White Blood Count 11.1 x10^3/uL Red Blood Count 3.30 x10^6/uL Hemoglobin 9.3 g/dL Hematocrit 29.6 % Mean Corpuscular Volume 90 fL Mean Corpuscular Hemoglobin 28 pg Mean Corpuscular Hemoglobin Concent 31 g/dL Red Cell Distribution Width 20.7 % Platelet Count 583 x10^3/uL Neutrophils (%) (Auto) 72 % Lymphocytes (%) (Auto) 20 % Monocytes (%) (Auto) 7 % Eosinophils (%) (Auto) 2 % Basophils (%) (Auto) 0 % Neutrophils # (Auto) 8.0 x10^3/uL Lymphocytes # (Auto) 2.2 x10^3/uL Monocytes # (Auto) 0.7 x10^3/uL Eosinophils # (Auto) 0.2 x10^3/uL Basophils # (Auto) 0.0 x10^3/uL Sodium Level 151 mmol/L Potassium Level 4.0 mmol/L Chloride Level 114 mmol/L Carbon Dioxide Level 25 mmol/L Anion Gap 12 Blood Urea Nitrogen 50 mg/dL Creatinine 1.3 mg/dL Estimated GFR (Cockcroft-Gault) 43.5 Glucose Level 194 mg/dL Calcium Level 11.0 mg/dL Phosphorus Level 4.4 mg/dL Magnesium Level 2.6 mg/dL Test 09/23/19 06:22 09/23/19 09:42 Glucose (Fingerstick) 218 mg/dL 177 mg/dL PE: GEN: NAD LUNGS: CTAB HEART: RRR ABD: S/ND/NT NEURO/PSYCH: A & O 3 A/P: Pancreatitis, MOSF -- Supportive care. Justicifation of Admission Dx: Justifications for Admission: Justification of Admission Dx: Yes CYNDEE FALCON Sep 23, 2019 10:40
[2019-09-23] MEDS: FUROSEMIDE 40 MG/4 ML VIAL. IVP SCH (11:14)
--- NOTE | 2019-09-23 11:14 | PDOC ---
[facility] PROGRESS NOTE Chief Complaint Chief Complaint Acute hypoxic Respiratory failure requiring mechanical ventilation (now extubated for several days but still with tracheostomy) Tracheostomy bilateral pleural effusions/pulm edema Sepsis Severe Acute gallstone pancreatitis (not a surgical candidate at this time) with necrosis Acute kidney failure now requiring dialysis Salpingitis Gallstones (Calculus of gallbladder with acute cholecystitis without obstruc tion) HTN Leukocytosis Hypoxia Uterine fibroid Intractable pain Intractable nausea Covid 19 negative. Acute on chronic anemia EEG: No seizure activityFever - better currently - intermittent could be from underlying pancreatitis blood cults 08/21 - neg so far ? Ileus with vomiting Abd distention - U/S and CT reviewed s/p 0.4 L of opaque, debris-containing ascites was removed 08/23 Acute pancreatitis with persistent necrosis - 08/14 status post KAYLIN drain placement + C paropsilosis. s/p additional drains 08/25 Anemia - S/p PRBCs Cholelithiasis with thickening of the gallbladder wall. Leucocytosis improving JUANA, hyperkalemia, Metabolic acidosis off dialysis Acute hypoxic resp failure ,bilateral pleural effusion and atelectasis hypocalcemia Prediabetes HTN s/p trach ESRD on HD Hyperglycemia History of Present Illness History of Present Illness 09/23/2019 Patient seen and examined on telemetry floor today This morning I had a couple of discussions with case management The issue is the patient will not wear her trach cap Without that she cannot advance her diet and is currently supposed to be on honey thick liquids I was going to talk to the patient about wearing her trach But when I arrived to the room she was lying on the floor with several nurses and therapist around Apparently she did walk to the end of the meyer then back and then collapsed onto the floor She had a bowel movement when this all happened Appears to be critically ill again Very shaky tremulous anxious has a stare in her eyes We got her back in bed I am extremely concerned about her long-term prognosis again 09/22/2019 Patient seen and examined in the ICU She remains critically ill is is extremely weak Chart reviewed Discussed with RN We decided to try some Prozac as she does seem depressed On IV TPN Still has NG tube 09/21/2019 Patient seen and examined in the ICU She remains critically ill We have been trying to hold off on her Ativan for the past 24 hours She is a little more awake but shaky and agitated and anxious seems depressed Discussed with RN Chart reviewed 09/20/2019 Patient seen and examined in the ICU She is a little more alert today but still quite ill Appears clammy and pale and depressed/anxious Discussed with RN Chart reviewed 09/19/2019 Patient seen and examined in the ICU She appears extremely ill She is tachypneic at 35 respirations per minute and tachycardic at 132 bpm She is extremely encephalopathic and shaky She appears clammy Chart reviewed Discussed with RN Prognosis extremely guarded at best 09/18/2019 Patient still in ICU Resting with no apparent distress Chart reviewed 09/17/2019 Patient seen and examined in the ICU She is wiping her face with a cough Discussed with RN Chart reviewed We hope to get her out of the ICU later today if possible 09/16/2019 Patient seen and examined in the ICU once again She is back on NG suction On IV Zosyn Has IV TPN Sedated with Precedex but anxious still Appears somewhat clammy and pale Chart reviewed Discussed with RN She remains critically ill 09/15/2019 Patient seen and examined in the ICU She has an NG that is clamped we are hoping to start some clear liquids but she looks quite ill She is on IV TPN Meropenem changed to IV Zosyn (agree) She has Lind to bedside drainage She is semi-sedated with Precedex Chart reviewed Discussed with RN She remains critically ill Seen bedside. Hb 8. She was just a bit hypoxic, had a mucous plug suctioned. Able to vocalize well with speaking valve, tells me we are being very hard on her and she would like to be drugged back to sleep. She wants to wake up and feel better. On trach shield, T max 100.4. afebrile this a.m. 09/13/2019 Patient seen and examined in the ICU She is up in the chair very frail trying to talk a little shaky Discussed with RN Chart reviewed 09/12/2019 Patient seen and examined in the ICU Patient up in the chair Having a severe coughing episode with a lot of phlegm coming out of her tracheostomy Discussed with RN Discussed with physical therapy Chart reviewed 09/10,. feels well, has been out of room in wheelchair no complaint, still weak, some with not wanting to wear her valve on trach cont other, may be able to work with speech tomorrow, juan ramon OK to try, 09/09, anxiety is up today, she dislikes the valve still, shower and outside today . 09/08 she doesnt want to wear her passy-fantasma valve, discussed str and plan with her. speech following, needs swallow study, but needs to wear her valve longer, cont current able to walk some, walker 09/07 stronger, better, we discussed better oral care she would like to try swallow study, wants to try to eat, speech is following 09/07/2019 She remains in the ICU sitting up and working with OT, getting better if limit pain meds, may do better off the vent, Nurses trying to suction her, that is also improved, Chart reviewed 09/06/2019 Patient seen and examined in the ICU She had an episode yesterday of tachycardia and severe agitation we gave her some Ativan After that she seemed to have stroke symptoms but now that the Ativan has wore off her stroke symptoms have resolved She is on IV meropenem and daptomycin and micafungin Chart reviewed Discussed with RN Patient is still critically ill BRIEF OPERATIVE NOTE Pre-Op Diagnosis Pancreatitis with pseudocysts, suspected infection Post-Op Diagnosis same Procedure Performed CT abdominal Drains x 3 Surgeon Tesfaye Anesthesia Type: Conscious Sedation Findings 3 abdominal drains, 14F, with turbid pancreatic fluid and necrotic debris in each. Complications No immediate 08/26: Patient today somewhat restless and having bilious secretions from ET tube, imaging studies ordered, discussed with solar energy consultant and designer. Pretty poor prognosis, hopefully is not a fistula, poor surgical candidate. 08/27: Imaging with no acute events, she seems more stable today compared to yesterday. Encouraged as much activity as possible patient at high risk for severe depression. Vitals/I&O Vitals/I&O: Vital Signs Date Time Temp Pulse Resp B/P (MAP) Pulse Ox O2 Delivery O2 Flow Rate FiO2 09/23/19 10:47 98.9 140 22 113/71 (85) 90 Room Air 98.9 09/23/19 10:09 10.0 I & O 09/22/19 09/22/19 09/23/19 15:00 23:00 07:00 Intake Total 0 ml 872 ml Output Total 525 ml 600 ml 300 ml Balance -525 ml 272 ml -300 ml Physical Exam Physical Exam: GENERAL: Was initially on the floor but we got her into bed HEENT: Oral mucosa is semi-dry NECK: Trach present LUNGS: Has some slight crackles and some sputum production coming from her trach HEART: S1, S2, regular ABDOMEN: mod distention, bowel sounds present, : Lind (08/01) EXTREMITIES: Mild edema and also seems to be developing some mottling?? SKIN: Cool clammy and pale FINAL ASSEMBLER:Opens eyes to voice, very weak LUE-PICC (09/15) without signsof complications General: Alert, Cooperative, No acute distress Heart: Regular rate, Normal S1, Normal S2, No murmurs, Gallops Lungs: Other (diminshed in bases ) Abdomen: Soft, No tenderness Extremities: No clubbing, No cyanosis, No edema, Normal pulses, No tenderness/swelling Skin: Other (warm, dry) Labs Labs: Laboratory Tests Test 09/22/19 12:53 09/22/19 18:08 09/22/19 22:50 09/23/19 05:15 Glucose (Fingerstick) 174 mg/dL (70-99) 139 mg/dL (70-99) 202 mg/dL (70-99) White Blood Count 11.1 x10^3/uL (4.0-11.0) Red Blood Count 3.30 x10^6/uL (3.50-5.40) Hemoglobin 9.3 g/dL (12.0-15.5) Hematocrit 29.6 % (36.0-47.0) Mean Corpuscular Volume 90 fL (79-100) Mean Corpuscular Hemoglobin 28 pg (25-35) Mean Corpuscular Hemoglobin Concent 31 g/dL (31-37) Red Cell Distribution Width 20.7 % (11.5-14.5) Platelet Count 583 x10^3/uL (140-400) Neutrophils (%) (Auto) 72 % (31-73) Lymphocytes (%) (Auto) 20 % (24-48) Monocytes (%) (Auto) 7 % (0-9) Eosinophils (%) (Auto) 2 % (0-3) Basophils (%) (Auto) 0 % (0-3) Neutrophils # (Auto) 8.0 x10^3/uL (1.8-7.7) Lymphocytes # (Auto) 2.2 x10^3/uL (1.0-4.8) Monocytes # (Auto) 0.7 x10^3/uL (0.0-1.1) Eosinophils # (Auto) 0.2 x10^3/uL (0.0-0.7) Basophils # (Auto) 0.0 x10^3/uL (0.0-0.2) Sodium Level 151 mmol/L (136-145) Potassium Level 4.0 mmol/L (3.5-5.1) Chloride Level 114 mmol/L (98-107) Carbon Dioxide Level 25 mmol/L (21-32) Anion Gap 12 (6-14) Blood Urea Nitrogen 50 mg/dL (7-20) Creatinine 1.3 mg/dL (0.6-1.0) Estimated GFR (Cockcroft-Gault) 43.5 Glucose Level 194 mg/dL (70-99) Calcium Level 11.0 mg/dL (8.5-10.1) Phosphorus Level 4.4 mg/dL (2.6-4.7) Magnesium Level 2.6 mg/dL (1.8-2.4) Thyroid Stimulating Hormone (TSH) 3.722 uIU/mL (0.358-3.74) Test 09/23/19 06:22 09/23/19 09:42 Glucose (Fingerstick) 218 mg/dL (70-99) 177 mg/dL (70-99) Assessment and Plan Assessmemt and Plan Problems Medical Problems: (1) Acute pancreatitis Status: Acute (2) Cholelithiasis Status: Acute Acute hypoxic Respiratory failure requiring mechanical ventilation was initially intubated on 07/10 was off for couple of days now back on Severe gallstone pancreatitis (not a surgical candidate at this time) with necrosis Tracheostomy bilateral pleural effusions/pulm edema Severe sepsis Acute kidney failure now requiring dialysis Salpingitis Gallstones (Calculus of gallbladder with acute cholecystitis without obstruction) HTN Leukocytosis Hypoxia Uterine fibroid Intractable pain Intractable nausea Covid 19 negative. Acute on chronic anemia EEG: No seizure activityFever - better currently - intermittent could be from underlying pancreatitis blood cults 08/21 - neg so far ? Ileus with vomiting Abd distention - U/S and CT reviewed s/p 0.4 L of opaque, debris-containing ascites was removed 08/23 Acute pancreatitis with persistent necrosis - 08/14 status post KAYLIN drain placement + C paropsilosis. s/p additional drains 08/25 Anemia - S/p PRBCs Cholelithiasis with thickening of the gallbladder wall. Leucocytosis improving JUANA, hyperkalemia, Metabolic acidosis off dialysis Acute hypoxic resp failure ,bilateral pleural effusion and atelectasis hypocalcemia Prediabetes HTN s/p trach ESRD on HD Hyperglycemia Plan cafeteria monitor Wound care Trying to minimize sedation but she gets anxious so easily Honey thickened liquids if she will keep her trach capped on Humidified O2 via nasal cannula for now but we can use trach shield as backup NG suctioning IV Zosyn Nebulizers TPN protocol Continue Lind to bedside drainage Tracheostomy care Hope to eventually move towards decannulation (we have a speaking valve for now) Trend labs Added Prozac 20 mg per NG daily yesterday We will also ask psychiatry to give an opinion about her psychological status Appreciate subspecialist input Prognosis extremely guarded at best! (she scored a 9 on Karina criteria 5 weeks ago). She remains extremely ill and I am not sure if she is going to make it, but we certainly hope so. Total time 34 minutes Comment Review of Relevant I have reviewed the following items kloby (where applicable) has been applied. Medications: Current Medications Medications (Trade) Dose Ordered Sig/Yvon Route PRN Reason Start Time Stop Time Status Last Admin Dose Admin Fluoxetine HCl (PROzac) 20 mg QHS PEG 09/22/19 21:00 09/22/19 21:23 Fentanyl (Duragesic 50mcg/ Hr Patch) 1 patch Q72H TD 09/22/19 21:00 09/22/19 21:22 Potassium Chloride 40 meq/ Potassium Acetate 60 meq/Magnesium Sulfate 10 meq/ Multivitamins 10 ml/Chromium/ Copper/Manganese/ Seleni/Zn 1 ml/ Insulin Human Regular 20 unit/ Total Parenteral Nutrition/Amino Acids/Dextrose/ Fat Emulsion Intravenous 1,800 ml @ 75 mls/hr TPN CONT IV 09/22/19 22:00 09/23/19 21:59 09/23/19 00:03 Justicifation of Admission Dx: Justifications for Admission: Justification of Admission Dx: Yes BEBO KIRBY III DO Sep 23, 2019 11:14
[2019-09-23] MEDS: TPN PER PHARMACY MC PRN (15:21)
--- NOTE | 2019-09-23 15:24 | NUR ---
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, 8 inches Weight: 68.5 kg Current diet: NPO LABS: Sodium: 151 Potassium: 4 Chloride: 114 Calcium: 11.0 Corrected Calcium: 12.60 Magnesium: 2.6 CO2: 25 SCr: 1.3 Glucose: 177-220 Albumin: 2.0 AST: 15 ALT: 14 TPN FORMULA: TPN TYPE: Central Continuous AMINO ACIDS: 75 gm DEXTROSE: 250 gm LIPIDS: 20 gm POTASSIUM ACETATE: 80 mEq MAGNESIUM: 5 mEq INSULIN: 20 units MULTIPLE VITAMIN: 10 ml TRACE ELEMENTS: 1 ml(s) TPN PLAN: Total volume increased d/t increased sodium Mag and potassium adjusted per labs. R: Change TPN per plan and ordered formula Will monitor electrolytes, glucose, and tolerance to TPN. Raeann Mcdonnell Katya, 09/23/19 1522
--- NOTE | 2019-09-23 15:45 | NUR ---
Pt asking to take a shower. PT and OT okay with showering her. Pt stable at time of shower. During shower, PT yelled out for help. Upon assessment, pt was found unresponsive, with fixed pupils and weak pulses. Code blue called and CPR initiated. Placed on monitor. Pt became responsive very shortly after CPR initiated. VS completely stable. Pt transferred in stable condition to ICU. Family notified and updated on situation.
[2019-09-23 17:31] LABS: HEMATOCRIT 28.3 % (36.0-47.0); HEMOGLOBIN 8.4 g/dL (12.0-15.5); RED BLOOD COUNT 2.97 x10^6/uL (3.50-5.40); RED CELL DISTRIBUTION WIDTH 20.8 % (11.5-14.5); WHITE BLOOD COUNT 32.2 x10^3/uL (4.0-11.0)
[2019-09-23 17:36] LABS: CREATININE 1.8 mg/dL (0.6-1.0); GFR 29.9; POTASSIUM 4.6 mmol/L (3.5-5.1)
[2019-09-23 17:41] LABS: ALBUMIN 1.9 g/dL (3.4-5.0); ALBUMIN/GLOBULIN RATIO 0.4 (1.0-1.7); TOTAL BILIRUBIN 0.5 mg/dL (0.2-1.0)
[2019-09-23] MEDS: ENOXAPARIN 40 MG/0.4 ML SYRINGE. SQ SCH (17:44)
--- NOTE | 2019-09-23 19:41 | NUR ---
Patient transferred to room 104 after episode in shower on CVC. Code blue was called. See Code blue sheet. Patient A/O, had pulse when RN arrived. ST, BP stable. According to RN, PT, patient passed out in shower, weak pulses, CPR started. RN updated patient's daughter and BFJamaal, who came to see patient at 1830. Patient is on RA, comfortable, sleeping at this time. Call light w/in reach, oriented to what happened.
[2019-09-23 19:44] LABS: PROTHROMBIN TIME PATIENT 15.3 SEC (11.7-14.0)
[2019-09-23] MEDS ORDERED: [UNRECOGNIZED DRUG - OTHER] IV SCH ×8 (22:00)
[2019-09-23] MEDS ORDERED: TOTAL PARENTERAL NUTRITION IV SCH ×8 (22:00)
[2019-09-23] MEDS ORDERED: AMINO ACID IV SCH ×8 (22:00)
[2019-09-23] MEDS ORDERED: DEXTROSE 70% IV SCH ×8 (22:00)
[2019-09-23] MEDS: ACETAMINOPHEN 650 MG SUPP.RECT. PR PRN (23:37)
[2019-09-24] VITALS (33 sets, daily range): BP systolic 84–144; BP diastolic 51–78
[2019-09-24] MEDS: INSULIN LISPRO 300 UNITS/3 ML VIAL. SQ SCH ×3 (05:54→18:22)
[2019-09-24 06:25] LABS: CALCIUM 10.4 mg/dL (8.5-10.1); CREATININE 1.9 mg/dL (0.6-1.0); GFR 28.1; MAGNESIUM 2.4 mg/dL (1.8-2.4); POTASSIUM 5.1 mmol/L (3.5-5.1)
[2019-09-24] MEDS: ONDANSETRON PF 4 MG/2 ML VIAL. IV PRN ×3 (06:27→19:59)
[2019-09-24] MEDS: fentaNYL PF VIAL 100 MCG/2 ML VIAL IVP PRN ×2 (06:27→21:55)
--- NOTE | 2019-09-24 06:32 | NUR ---
Nursing Note: Pt R side dressing changed where drain was removed. Moderate amount of sanguinous drainage. After turning from changing dressing, patient vomited dark green bile. Immediately sterile tracheal suction performed. Pt given small dose of Fentanyl and Zofran. Sats mid to upper 90s.
[2019-09-24] MEDS: PANTOPRAZOLE IV PUSH 40 MG VIAL. IVP SCH (07:30)
[2019-09-24 08:03] LABS: BASO % 0 % (0-3); EOS # 0.1 x10^3/uL (0.0-0.7); EOS % 0 % (0-3); HEMATOCRIT 22.2 % (36.0-47.0); LYMPH # 2.2 x10^3/uL (1.0-4.8); LYMPH % 11 % (24-48); MEAN CORPUSCULAR HEMOGLOBIN 29 pg (25-35); MEAN CORPUSCULAR HGB CONC 31 g/dL (31-37); MEAN CORPUSCULAR VOLUME 91 fL (79-100); MONO # 0.9 x10^3/uL (0.0-1.1); MONO % 4 % (0-9); NEUT % 85 % (31-73); PLATELET COUNT 570 x10^3/uL (140-400); RED BLOOD COUNT 2.44 x10^6/uL (3.50-5.40); WHITE BLOOD COUNT 21.2 x10^3/uL (4.0-11.0)
--- NOTE | 2019-09-24 08:27 | RAD ---
AP chest x-ray COMPARISON: Chest x-ray September 17, 2019. HISTORY: Aspiration. FINDINGS: Tracheostomy. Left PICC line tip distal SVC. The right PICC line on the prior exam has been removed. Nasogastric tube extends to the abdomen outside the [id number]. Heart size normal. No pneumothorax. Mild left greater than right pleural effusions again demonstrated along with asymmetric opacity at the left lower lobe. Mild interstitial linear densities likely representing mild edema at the lung bases also present. Bones are unremarkable. IMPRESSION: Lines and tubes as described above. Left greater than right lower lobe opacities most likely pulmonary edema and left greater than right mild pleural effusions are stable. Superimposed left lower lobe pneumonia is not excluded. Electronically signed by: Reece Carr MD (09/24/2019 8:25 AM) [id number]
[2019-09-24] MEDS: FUROSEMIDE 40 MG/4 ML VIAL. IVP SCH (09:00)
--- NOTE | 2019-09-24 09:17 | PDOC ---
Infectious Disease Note Subjective Subjective Transferred to MICU Apparently passed out while showering, weak pulse, CPR started This morning patient c/o abdominal discomfort and nausea. Low-grade fever, no chills/SOA/CP SpO2 98% on room air ROS ROS as mentioned above Vital Sign Vital Signs Vital Signs Date Time Temp Pulse Resp B/P (MAP) Pulse Ox O2 Delivery O2 Flow Rate FiO2 09/24/19 06:57 95 Room Air 10.0 09/24/19 06:00 132 20 99/71 (80) 09/24/19 02:00 99.5 99.5 Physical Exam PHYSICAL EXAM GENERAL: Propped up in bed, appears weak, pale HEENT: NGT in place. Oral mucosa is semi-dry NECK: Trach present LUNGS: Clear anteriorly, no accessory muscle use HEART: S1, S2, regular ABDOMEN: Mild distention, bowel sounds present, soft, tender. Drains out, some bloody drainage on the right : Lind (08/01) EXTREMITIES: No gross edema or cyanosis SKIN: Pale, no signs of rash COAL SHOOTER: Awake, nods and mouths words to questions appropriately generalized weakness. LUE-PICC (09/15) without signs of complications Labs Lab Laboratory Tests Test 09/23/19 09:42 09/23/19 12:26 09/23/19 16:00 09/23/19 17:45 Glucose (Fingerstick) 177 mg/dL (70-99) 220 mg/dL (70-99) 209 mg/dL (70-99) White Blood Count 32.2 x10^3/uL (4.0-11.0) Red Blood Count 2.97 x10^6/uL (3.50-5.40) Hemoglobin 8.4 g/dL (12.0-15.5) Hematocrit 28.3 % (36.0-47.0) Mean Corpuscular Volume 95 fL (79-100) Mean Corpuscular Hemoglobin 28 pg (25-35) Mean Corpuscular Hemoglobin Concent 30 g/dL (31-37) Red Cell Distribution Width 20.8 % (11.5-14.5) Platelet Count 787 x10^3/uL (140-400) Sodium Level 151 mmol/L (136-145) Potassium Level 4.6 mmol/L (3.5-5.1) Chloride Level 113 mmol/L (98-107) Carbon Dioxide Level 19 mmol/L (21-32) Anion Gap 19 (6-14) Blood Urea Nitrogen 58 mg/dL (7-20) Creatinine 1.8 mg/dL (0.6-1.0) Estimated GFR (Cockcroft-Gault) 29.9 BUN/Creatinine Ratio 32 (6-20) Glucose Level 241 mg/dL (70-99) Calcium Level 11.0 mg/dL (8.5-10.1) Total Bilirubin 0.5 mg/dL (0.2-1.0) Aspartate Amino Transf (AST/SGOT) 31 U/L (15-37) Alanine Aminotransferase (ALT/SGPT) 23 U/L (14-59) Alkaline Phosphatase 131 U/L (46-116) Total Protein 7.0 g/dL (6.4-8.2) Albumin 1.9 g/dL (3.4-5.0) Albumin/Globulin Ratio 0.4 (1.0-1.7) Prothrombin Time 15.3 SEC (11.7-14.0) Prothromb Time International Ratio 1.3 (0.8-1.1) Lactic Acid Level 1.9 mmol/L (0.4-2.0) Test 09/23/19 23:35 09/24/19 05:53 09/24/19 05:55 09/24/19 06:45 Glucose (Fingerstick) 178 mg/dL (70-99) 216 mg/dL (70-99) Sodium Level 147 mmol/L (136-145) Potassium Level 5.1 mmol/L (3.5-5.1) Chloride Level 113 mmol/L (98-107) Carbon Dioxide Level 26 mmol/L (21-32) Anion Gap 8 (6-14) Blood Urea Nitrogen 69 mg/dL (7-20) Creatinine 1.9 mg/dL (0.6-1.0) Estimated GFR (Cockcroft-Gault) 28.1 Glucose Level 240 mg/dL (70-99) Calcium Level 10.4 mg/dL (8.5-10.1) Phosphorus Level 4.0 mg/dL (2.6-4.7) Magnesium Level 2.4 mg/dL (1.8-2.4) White Blood Count 21.2 x10^3/uL (4.0-11.0) Red Blood Count 2.44 x10^6/uL (3.50-5.40) Hemoglobin 7.0 g/dL (12.0-15.5) Hematocrit 22.2 % (36.0-47.0) Mean Corpuscular Volume 91 fL (79-100) Mean Corpuscular Hemoglobin 29 pg (25-35) Mean Corpuscular Hemoglobin Concent 31 g/dL (31-37) Red Cell Distribution Width 21.0 % (11.5-14.5) Platelet Count 570 x10^3/uL (140-400) Neutrophils (%) (Auto) 85 % (31-73) Lymphocytes (%) (Auto) 11 % (24-48) Monocytes (%) (Auto) 4 % (0-9) Eosinophils (%) (Auto) 0 % (0-3) Basophils (%) (Auto) 0 % (0-3) Neutrophils # (Auto) 18.0 x10^3/uL (1.8-7.7) Lymphocytes # (Auto) 2.2 x10^3/uL (1.0-4.8) Monocytes # (Auto) 0.9 x10^3/uL (0.0-1.1) Eosinophils # (Auto) 0.1 x10^3/uL (0.0-0.7) Basophils # (Auto) 0.0 x10^3/uL (0.0-0.2) Micro 08/21. BLOOD CULTURE Preliminary NO GROWTH AFTER 5 DAYS 08/14. abd fluid AEROBIC RES 1 Final Organism Identification, Yeast Kiana parapsilosis 08/23. abd fluid ANAEROBIC-AEROBIC CULTURE PENDING Objective Assessment Fever intermittent could be from underlying pancreatitis vs aspiration Leukocytosis, likely reactive - improved off abx ? Ileus with N/V Abd distention - U/S and CT reviewed s/p 0.4 L of opaque, debris-containing ascites was removed 08/23 Acute pancreatitis with persistent necrosis - 08/14 s/p KAYLIN drain placement + C paropsilosis; 08/23 + yeast & high amylase; s/p additional drains on 08/25. Drains now removed Anemia - S/p PRBCs Cholelithiasis with thickening of the gallbladder wall. JUANA, hyperkalemia, Metabolic acidosis off dialysis Acute hypoxic resp failure ,bilateral pleural effusion and atelectasis hypocalcemia Prediabetes HTN s/p trach Plan Plan of Care Off antibiotics PRBCs underway f/u am labs Aggressive pulmonary toilet Maintain aspiration precaution Supportive care PT and OT as tolerated D/w nursing Patient seen. Chart reviewed in detail. Case discussed with FOOD EQUIPMENT SERVICE TECHNICIAN. I agree with above plan.cor-formulated with FOOD EQUIPMENT SERVICE TECHNICIAN FRANCA HOBSON APRN Sep 24, 2019 09:17 GERMAN TORRES MD Sep 24, 2019 22:48
--- NOTE | 2019-09-24 09:19 | PDOC ---
PULMONARY PROGRESS NOTES Subjective Patient intubated on 07/10 , s/p trach 07/24, transferred back to ICU overnight for syncope with collapse. Apparently had a vasovagal episode in shower. Did not loose pulse Anemia this am, blood drainage from RLQ abdomen surgical site, and surrounding firmness Vitals Vital Signs Date Time Temp Pulse Resp B/P (MAP) Pulse Ox O2 Delivery O2 Flow Rate FiO2 09/24/19 06:57 95 Room Air 10.0 09/24/19 06:00 132 20 99/71 (80) 09/24/19 02:00 99.5 99.5 ROS: No Nausea, No Chest Pain, No Abdominal Pain, No Increase Cough General: No acute distress, Lethargic Lungs: Other (diminshed in bases, Rhonci in LLL) Cardiovascular: S1, S2 Abdomen: Soft, Non-tender, Other (bleeding from Sx. site RLQ and firmness) Extremities: Other (+1 BLE edema) Skin: Warm, Dry Labs Laboratory Tests Test 09/22/19 12:53 09/22/19 18:08 09/22/19 22:50 09/23/19 05:15 Glucose (Fingerstick) 174 mg/dL (70-99) 139 mg/dL (70-99) 202 mg/dL (70-99) White Blood Count 11.1 x10^3/uL (4.0-11.0) Red Blood Count 3.30 x10^6/uL (3.50-5.40) Hemoglobin 9.3 g/dL (12.0-15.5) Hematocrit 29.6 % (36.0-47.0) Mean Corpuscular Volume 90 fL (79-100) Mean Corpuscular Hemoglobin 28 pg (25-35) Mean Corpuscular Hemoglobin Concent 31 g/dL (31-37) Red Cell Distribution Width 20.7 % (11.5-14.5) Platelet Count 583 x10^3/uL (140-400) Neutrophils (%) (Auto) 72 % (31-73) Lymphocytes (%) (Auto) 20 % (24-48) Monocytes (%) (Auto) 7 % (0-9) Eosinophils (%) (Auto) 2 % (0-3) Basophils (%) (Auto) 0 % (0-3) Neutrophils # (Auto) 8.0 x10^3/uL (1.8-7.7) Lymphocytes # (Auto) 2.2 x10^3/uL (1.0-4.8) Monocytes # (Auto) 0.7 x10^3/uL (0.0-1.1) Eosinophils # (Auto) 0.2 x10^3/uL (0.0-0.7) Basophils # (Auto) 0.0 x10^3/uL (0.0-0.2) Sodium Level 151 mmol/L (136-145) Potassium Level 4.0 mmol/L (3.5-5.1) Chloride Level 114 mmol/L (98-107) Carbon Dioxide Level 25 mmol/L (21-32) Anion Gap 12 (6-14) Blood Urea Nitrogen 50 mg/dL (7-20) Creatinine 1.3 mg/dL (0.6-1.0) Estimated GFR (Cockcroft-Gault) 43.5 Glucose Level 194 mg/dL (70-99) Calcium Level 11.0 mg/dL (8.5-10.1) Phosphorus Level 4.4 mg/dL (2.6-4.7) Magnesium Level 2.6 mg/dL (1.8-2.4) Thyroid Stimulating Hormone (TSH) 3.722 uIU/mL (0.358-3.74) Test 09/23/19 06:22 09/23/19 09:42 09/23/19 12:26 09/23/19 16:00 Glucose (Fingerstick) 218 mg/dL (70-99) 177 mg/dL (70-99) 220 mg/dL (70-99) White Blood Count 32.2 x10^3/uL (4.0-11.0) Red Blood Count 2.97 x10^6/uL (3.50-5.40) Hemoglobin 8.4 g/dL (12.0-15.5) Hematocrit 28.3 % (36.0-47.0) Mean Corpuscular Volume 95 fL (79-100) Mean Corpuscular Hemoglobin 28 pg (25-35) Mean Corpuscular Hemoglobin Concent 30 g/dL (31-37) Red Cell Distribution Width 20.8 % (11.5-14.5) Platelet Count 787 x10^3/uL (140-400) Sodium Level 151 mmol/L (136-145) Potassium Level 4.6 mmol/L (3.5-5.1) Chloride Level 113 mmol/L (98-107) Carbon Dioxide Level 19 mmol/L (21-32) Anion Gap 19 (6-14) Blood Urea Nitrogen 58 mg/dL (7-20) Creatinine 1.8 mg/dL (0.6-1.0) Estimated GFR (Cockcroft-Gault) 29.9 BUN/Creatinine Ratio 32 (6-20) Glucose Level 241 mg/dL (70-99) Calcium Level 11.0 mg/dL (8.5-10.1) Total Bilirubin 0.5 mg/dL (0.2-1.0) Aspartate Amino Transf (AST/SGOT) 31 U/L (15-37) Alanine Aminotransferase (ALT/SGPT) 23 U/L (14-59) Alkaline Phosphatase 131 U/L (46-116) Total Protein 7.0 g/dL (6.4-8.2) Albumin 1.9 g/dL (3.4-5.0) Albumin/Globulin Ratio 0.4 (1.0-1.7) Test 09/23/19 17:45 09/23/19 23:35 09/24/19 05:53 09/24/19 05:55 Prothrombin Time 15.3 SEC (11.7-14.0) Prothromb Time International Ratio 1.3 (0.8-1.1) Glucose (Fingerstick) 209 mg/dL (70-99) 178 mg/dL (70-99) 216 mg/dL (70-99) Lactic Acid Level 1.9 mmol/L (0.4-2.0) Sodium Level 147 mmol/L (136-145) Potassium Level 5.1 mmol/L (3.5-5.1) Chloride Level 113 mmol/L (98-107) Carbon Dioxide Level 26 mmol/L (21-32) Anion Gap 8 (6-14) Blood Urea Nitrogen 69 mg/dL (7-20) Creatinine 1.9 mg/dL (0.6-1.0) Estimated GFR (Cockcroft-Gault) 28.1 Glucose Level 240 mg/dL (70-99) Calcium Level 10.4 mg/dL (8.5-10.1) Phosphorus Level 4.0 mg/dL (2.6-4.7) Magnesium Level 2.4 mg/dL (1.8-2.4) Test 09/24/19 06:45 White Blood Count 21.2 x10^3/uL (4.0-11.0) Red Blood Count 2.44 x10^6/uL (3.50-5.40) Hemoglobin 7.0 g/dL (12.0-15.5) Hematocrit 22.2 % (36.0-47.0) Mean Corpuscular Volume 91 fL (79-100) Mean Corpuscular Hemoglobin 29 pg (25-35) Mean Corpuscular Hemoglobin Concent 31 g/dL (31-37) Red Cell Distribution Width 21.0 % (11.5-14.5) Platelet Count 570 x10^3/uL (140-400) Neutrophils (%) (Auto) 85 % (31-73) Lymphocytes (%) (Auto) 11 % (24-48) Monocytes (%) (Auto) 4 % (0-9) Eosinophils (%) (Auto) 0 % (0-3) Basophils (%) (Auto) 0 % (0-3) Neutrophils # (Auto) 18.0 x10^3/uL (1.8-7.7) Lymphocytes # (Auto) 2.2 x10^3/uL (1.0-4.8) Monocytes # (Auto) 0.9 x10^3/uL (0.0-1.1) Eosinophils # (Auto) 0.1 x10^3/uL (0.0-0.7) Basophils # (Auto) 0.0 x10^3/uL (0.0-0.2) Laboratory Tests Test 09/23/19 09:42 09/23/19 12:26 09/23/19 16:00 09/23/19 17:45 Glucose (Fingerstick) 177 mg/dL (70-99) 220 mg/dL (70-99) 209 mg/dL (70-99) White Blood Count 32.2 x10^3/uL (4.0-11.0) Red Blood Count 2.97 x10^6/uL (3.50-5.40) Hemoglobin 8.4 g/dL (12.0-15.5) Hematocrit 28.3 % (36.0-47.0) Mean Corpuscular Volume 95 fL (79-100) Mean Corpuscular Hemoglobin 28 pg (25-35) Mean Corpuscular Hemoglobin Concent 30 g/dL (31-37) Red Cell Distribution Width 20.8 % (11.5-14.5) Platelet Count 787 x10^3/uL (140-400) Sodium Level 151 mmol/L (136-145) Potassium Level 4.6 mmol/L (3.5-5.1) Chloride Level 113 mmol/L (98-107) Carbon Dioxide Level 19 mmol/L (21-32) Anion Gap 19 (6-14) Blood Urea Nitrogen 58 mg/dL (7-20) Creatinine 1.8 mg/dL (0.6-1.0) Estimated GFR (Cockcroft-Gault) 29.9 BUN/Creatinine Ratio 32 (6-20) Glucose Level 241 mg/dL (70-99) Calcium Level 11.0 mg/dL (8.5-10.1) Total Bilirubin 0.5 mg/dL (0.2-1.0) Aspartate Amino Transf (AST/SGOT) 31 U/L (15-37) Alanine Aminotransferase (ALT/SGPT) 23 U/L (14-59) Alkaline Phosphatase 131 U/L (46-116) Total Protein 7.0 g/dL (6.4-8.2) Albumin 1.9 g/dL (3.4-5.0) Albumin/Globulin Ratio 0.4 (1.0-1.7) Prothrombin Time 15.3 SEC (11.7-14.0) Prothromb Time International Ratio 1.3 (0.8-1.1) Lactic Acid Level 1.9 mmol/L (0.4-2.0) Test 09/23/19 23:35 09/24/19 05:53 09/24/19 05:55 09/24/19 06:45 Glucose (Fingerstick) 178 mg/dL (70-99) 216 mg/dL (70-99) Sodium Level 147 mmol/L (136-145) Potassium Level 5.1 mmol/L (3.5-5.1) Chloride Level 113 mmol/L (98-107) Carbon Dioxide Level 26 mmol/L (21-32) Anion Gap 8 (6-14) Blood Urea Nitrogen 69 mg/dL (7-20) Creatinine 1.9 mg/dL (0.6-1.0) Estimated GFR (Cockcroft-Gault) 28.1 Glucose Level 240 mg/dL (70-99) Calcium Level 10.4 mg/dL (8.5-10.1) Phosphorus Level 4.0 mg/dL (2.6-4.7) Magnesium Level 2.4 mg/dL (1.8-2.4) White Blood Count 21.2 x10^3/uL (4.0-11.0) Red Blood Count 2.44 x10^6/uL (3.50-5.40) Hemoglobin 7.0 g/dL (12.0-15.5) Hematocrit 22.2 % (36.0-47.0) Mean Corpuscular Volume 91 fL (79-100) Mean Corpuscular Hemoglobin 29 pg (25-35) Mean Corpuscular Hemoglobin Concent 31 g/dL (31-37) Red Cell Distribution Width 21.0 % (11.5-14.5) Platelet Count 570 x10^3/uL (140-400) Neutrophils (%) (Auto) 85 % (31-73) Lymphocytes (%) (Auto) 11 % (24-48) Monocytes (%) (Auto) 4 % (0-9) Eosinophils (%) (Auto) 0 % (0-3) Basophils (%) (Auto) 0 % (0-3) Neutrophils # (Auto) 18.0 x10^3/uL (1.8-7.7) Lymphocytes # (Auto) 2.2 x10^3/uL (1.0-4.8) Monocytes # (Auto) 0.9 x10^3/uL (0.0-1.1) Eosinophils # (Auto) 0.1 x10^3/uL (0.0-0.7) Basophils # (Auto) 0.0 x10^3/uL (0.0-0.2) Medications Active Scripts Medications Dose Route/Sig Max Daily Dose Days Date Category Bisoprolol Fumarate 5 Mg Tablet 10 Mg PO DAILY 07/04/19 Reported Comments CXR 09/24/2019 IMPRESSION: Lines and tubes as described above. Left greater than right lower lobe opacities most likely pulmonary edema and left greater than right mild pleural effusions are stable. Superimposed left lower lobe pneumonia is not excluded. Impression . IMPRESSION: 1. Acute hypoxemic respiratory failure secondary to ARDS status post trach, 2. Gallstone pancreatitis/ not a surgical candidate 3. Severe metabolic acidosis.stable 4. Acute kidney injury-stable, Off HD--worsening today 5. Acute gallstone pancreatitis. 6. Hypoalbuminemia. 7. Moderate persistent effusions, s/p left thora 08/29 (sympathetic effusion from abdominal process) 8. Fever- Per ID, per surgery--resolved 9. Chronic anemia-- ongoing / oozing of blood from drain site 10. Covid 19 testing negative 11. Moderate to large ascites-S/P paracentisis 12.S/P paracentisis with 4 liters removed on 08/03/19 13. S/P IR drain placement on 08/26/2019 14. Depression/Anxiety Plan . 1.Continue supplemental oxygen via trach shield-- PMV/capping as tolerated/ prn suction. add O2 if sats < 92% 2. s/p thoracentesis, 08/29, 3 litres removed 3. Follow surgery recs-- Acute pancreatitis with persistent necrosis ---- 08/14 status post KAYLIN drain placement + C paropsilosis; 5/6 + yeast & high amylase; s/p additional drains on 08/25 and removal/ Now intermittent bleeding from drain site/ surgeon informed. 4. Follow ID recs for ABX-- currently off ABX leukocytosis. 5. Follow nephrology recs --- cr. is worsening 6. Continue TPN 7. monitor HGB, transfuse 1 unit 8. CXR reviewed 9. Check amalyse and lipase, obtain CT ABD/PLVS DVT/GI PPX: lovenox / protonix--- hold lovenox 2/2 anemia PT/OT D/W RN CODE:FULL VINAYAK LANDRUM MD Sep 24, 2019 09:18
[2019-09-24] MEDS: TPN PER PHARMACY MC PRN ×2 (10:03→10:05)
--- NOTE | 2019-09-24 10:06 | NUR ---
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, 8 inches Weight: 69.0 kg Current diet: NPO LABS: Sodium: 4147 Potassium: 5.1 Chloride: 113 Calcium: 10.4 Corrected Calcium: 12.00 Magnesium: 2.4 CO2: 26 SCr: 1.9 Glucose: 216, 240 Albumin: 2.0 AST: 15 ALT: 14 TPN FORMULA: TPN TYPE: Central Continuous AMINO ACIDS: 75 gm DEXTROSE: 250 gm LIPIDS: 20 gm POTASSIUM ACETATE: 60 mEq MAGNESIUM: 5 mEq INSULIN: 30 units MULTIPLE VITAMIN: 10 ml TRACE ELEMENTS: 1 ml TPN PLAN: -Serum sodium trending down with free water addition. -Serum potassium elevated, reduce KAC to 60 mEq/day. -Blood glucose above goal range, increase regular insulin to 30 units/day. -BMP tomorrow. R: Continue TPN @ current rate and with above formula. Will monitor electrolytes, glucose, and tolerance to TPN. SHARON CHRISTIANSON [facility] [place], 09/24/19 1007
[2019-09-24 10:07] LABS: AMYLASE 385 U/L (25-115); LIPASE 563 U/L (73-393)
--- NOTE | 2019-09-24 11:35 | PDOC ---
GENERAL General: Patient examined chart reviewed today is hospital day 82 for this patient admitted with gallstone pancreatitis complicated by severe sepsis and respira tory failure. She has had a very uli course unfortunately has had very slow progress and is still TPN dependent. She also now has a tracheostomy. She has been in and out of the intensive care unit since the beginning of her stay and readmitted there yesterday after being found down on the ground likely after a vasovagal syncopal event after walking. She is nonverbal very sleepy this morning I am evaluating her with nurse at bedside who is very helpful in outlining her course. Patient had her abdominal drains removed yesterday and hemoglobin has dropped this morning abdomen is more distended concern for abdominal hematoma. Plan is for a CT abdomen and pelvis today. Appreciate subspecialty support. We will continue current management otherwise. Infectious diseases is guiding antibiotics. Total time today is 30 minutes with greater than 50% in counseling and coordination of care most of which in discussion with nursing and patient. Problems: (1) Sepsis (2) Tracheostomy dependence (3) Gallstone pancreatitis (4) Chronic respiratory failure VITAL SIGNS Vital Signs/I&O: Vital Signs Date Time Temp Pulse Resp B/P (MAP) Pulse Ox O2 Delivery O2 Flow Rate FiO2 09/24/19 09:00 128 20 112/77 (89) 95 Room Air 09/24/19 07:00 99.1 99.1 09/24/19 06:57 10.0 I & O 09/23/19 09/23/19 09/24/19 15:00 23:00 07:00 Output Total 175 ml 200 ml 165 ml Balance -175 ml -200 ml -165 ml In general the patient is very somnolent awakens and interacts she is non-verbal. She has no trach shield on this morning. She does appear comfortable HEENT exam is notable for that her trach is intact she is not wearing a trach shield this morning Chest bilateral equal air entry though diminished throughout no crackles or wheezes are noted Heart S1-S2 normal tachycardic no murmurs or gallops are noted Abdomen is distended bowel sounds are absent she is mildly tender throughout drains were removed this morning Extremity exam is unremarkable for acute abnormality ALLERGIES Allergies: Allergies Coded Allergies Type Severity Reaction Last Updated Verified codeine Allergy Intermediate rash 07/04/19 Yes MEDS Medications: Current Medications Medications (Trade) Dose Ordered Sig/Yvon Start Time Stop Time Status Last Admin Dose Admin Acetaminophen (Tylenol Supp) 650 mg PRN Q6HRS PRN 07/12/19 10:30 09/23/19 23:37 Acetaminophen (Tylenol) 650 mg PRN Q6HRS PRN 07/09/19 03:36 08/31/19 10:25 DC 08/04/19 19:56 Albumin Human 100 ml @ 100 mls/hr 1X PRN PRN 09/06/19 01:30 Albuterol Sulfate (Ventolin Neb Soln) 2.5 mg 1X ONCE 07/05/19 22:30 07/05/19 22:31 DC 07/06/19 00:56 Alteplase, Recombinant (Cathflo For Central Catheter Clearance) 1 mg 1X ONCE 08/12/19 10:45 08/12/19 10:46 DC 08/12/19 11:44 Amino Acids/ Glycerin/ Electrolytes 1,000 ml @ 75 mls/hr [id number] 08/08/19 21:15 UNV Artificial Tears (Artificial Tears) 1 drop PRN Q15MIN PRN 08/17/19 05:30 09/16/19 10:08 Atenolol (Tenormin) 100 mg DAILY 07/05/19 09:00 07/04/19 20:08 DC Atropine Sulfate (ATROPINE 0.5mg SYRINGE) 0.5 mg PRN Q5MIN PRN 07/21/19 08:15 Barium Sulfate (Varibar Thin Liquid Apple) 148 gm 1X ONCE 09/13/19 11:45 09/13/19 11:49 DC Benzocaine (Hurricaine One) 1 spray 1X ONCE 07/08/19 14:30 07/08/19 14:31 DC 07/08/19 16:38 Bisacodyl (Dulcolax Supp) 10 mg STK-MED ONCE 08/15/19 10:59 08/15/19 10:59 DC Bumetanide (Bumex) 2 mg DAILY 08/26/19 10:00 09/05/19 17:15 DC 09/05/19 08:07 Bupivacaine HCl/ Epinephrine Bitart (Sensorcain-Epi 0.5%-1:[id number] Mpf) 30 ml STK-MED ONCE 08/15/19 10:58 08/15/19 10:58 DC 08/15/19 12:01 Calcium Carbonate/ Glycine (Tums) 500 mg PRN AFTMEALHC PRN 07/06/19 17:45 08/31/19 10:25 DC Calcium Chloride 1000 mg/Sodium Chloride 110 ml @ 220 mls/hr 1X ONCE 07/05/19 22:30 07/05/19 22:59 DC 07/05/19 22:11 Calcium Chloride 3000 mg/Sodium Chloride 1,030 ml @ 50 mls/hr [id number] 07/07/19 08:00 07/09/19 15:23 DC 07/09/19 02:17 Calcium Gluconate (Calcium Gluconate) 2,000 mg 1X ONCE 07/07/19 02:15 07/07/19 02:16 DC 07/07/19 02:19 Calcium Gluconate 1000 mg/Sodium Chloride 110 ml @ 220 mls/hr 1X ONCE 07/06/19 03:30 07/06/19 03:59 DC 07/06/19 03:21 Calcium Gluconate 2000 mg/Sodium Chloride 120 ml @ 220 mls/hr 1X ONCE 07/06/19 07:30 07/06/19 08:02 DC 07/06/19 09:05 Cefepime HCl (Maxipime) 2 gm Q12HR 07/13/19 09:00 07/27/19 09:58 DC 07/26/19 20:56 Cellulose (Surgicel Fibrillar 1x2) 1 each STK-MED ONCE 07/25/19 11:00 07/25/19 11:01 DC Cellulose (Surgicel Hemostat 2x14) 1 each STK-MED ONCE 08/15/19 10:58 08/15/19 10:59 DC Cellulose (Surgicel Hemostat 4x8) 1 each STK-MED ONCE 08/15/19 10:58 08/15/19 10:59 DC Cyclobenzaprine HCl (Flexeril) 10 mg PRN Q6HRS PRN 08/18/19 10:45 Daptomycin 430 mg/ Sodium Chloride 50 ml @ 100 mls/hr Q24H 08/13/19 13:00 08/18/19 20:58 DC 08/18/19 13:00 Daptomycin 450 mg/ Sodium Chloride 50 ml @ 100 mls/hr Q24H 09/04/19 09:00 09/08/19 08:30 DC 09/07/19 09:25 Daptomycin 485 mg/ Sodium Chloride 50 ml @ 100 mls/hr Q24H 08/22/19 11:00 08/30/19 07:44 DC 08/29/19 13:10 Daptomycin 500 mg/ Sodium Chloride 50 ml @ 100 mls/hr Q48H 07/13/19 08:30 07/29/19 10:07 DC 07/29/19 09:57 Dexamethasone Sodium Phosphate (Decadron) 4 mg STK-MED ONCE 08/15/19 10:56 08/15/19 10:57 DC Dexmedetomidine HCl 400 mcg/ Sodium Chloride 100 ml @ 0 mls/hr CONT PRN 07/21/19 08:15 09/17/19 18:31 DC 09/17/19 12:57 Dextrose (Dextrose 50%-Water Syringe) 12.5 gm PRN Q15MIN PRN 07/04/19 09:30 Digoxin (Lanoxin) 125 mcg 1X ONCE 07/07/19 18:00 07/07/19 18:01 DC 07/07/19 17:10 Diphenhydramine HCl (Benadryl) 25 mg 1X PRN PRN 08/12/19 15:45 08/13/19 15:44 DC Duloxetine HCl (Cymbalta) 30 mg DAILY 08/28/19 14:00 08/31/19 10:25 DC 08/29/19 09:48 Enoxaparin Sodium (Lovenox 100mg Syringe) 100 mg Q12HR 08/09/19 21:00 UNV Enoxaparin Sodium (Lovenox 40mg Syringe) 40 mg Q24H 09/04/19 17:00 09/23/19 17:44 Etomidate (Amidate) 8 mg 1X ONCE 07/11/19 08:30 07/11/19 08:31 DC 07/11/19 08:33 Fentanyl (Duragesic 50mcg/ Hr Patch) 1 patch Q72H 09/22/19 21:00 09/22/19 21:22 Fentanyl Citrate (Fentanyl 2ml Vial) 25 mcg PRN Q4HRS PRN 09/05/19 13:15 09/24/19 06:27 Fentanyl Citrate (Fentanyl 5ml Vial) 250 mcg 1X ONCE 08/26/19 09:15 08/26/19 09:16 DC 08/26/19 09:30 Fluoxetine HCl (PROzac) 20 mg QHS 09/22/19 21:00 09/23/19 21:58 Furosemide (Lasix) 40 mg DAILY 09/21/19 13:30 09/23/19 11:14 Haloperidol Lactate (Haldol Inj) 3 mg 1X ONCE 08/22/19 14:30 08/22/19 14:31 DC 08/22/19 14:37 Heparin Sodium (Porcine) (Hep Lock Adult) 500 unit STK-MED ONCE 07/26/19 09:29 07/26/19 09:30 DC Heparin Sodium (Porcine) (Heparin Sodium) 5,000 unit Q12HR 08/15/19 21:00 08/25/19 09:59 DC 08/24/19 20:57 Heparin Sodium (Porcine) 1000 unit/Sodium Chloride 1,001 ml @ 1,001 mls/hr 1X ONCE 08/15/19 12:00 08/15/19 12:59 DC Hydromorphone HCl (Dilaudid Standard AUTOMATION QTP TESTER) 12 mg STK-MED ONCE 08/19/19 15:50 08/30/19 11:24 DC Hydromorphone HCl (Dilaudid) 1 mg PRN Q4HRS PRN 08/22/19 19:00 09/05/19 17:10 DC 09/05/19 06:25 Info (CONTRAST GIVEN -- Rx MONITORING) 1 each PRN DAILY PRN 07/18/19 11:45 07/20/19 11:44 DC Info (Icu Electrolyte Protocol) 1 ea CONT PRN PRN 07/17/19 13:15 Info (PHARMACY MONITORING -- do not chart) 1 each PRN DAILY PRN 08/12/19 15:45 09/13/19 14:14 DC Info (Tpn Per Pharmacy) 1 each PRN DAILY PRN 07/06/19 12:30 UNV Insulin Human Lispro (HumaLOG) 0-9 UNITS Q6HRS 07/04/19 09:30 09/24/19 05:54 Insulin Human Regular (HumuLIN R VIAL) 5 unit 1X ONCE 07/05/19 22:30 07/05/19 22:31 DC 07/05/19 22:14 Iohexol (Omnipaque 240 Mg/ml) 30 ml 1X ONCE 07/18/19 11:30 07/18/19 11:33 DC 07/18/19 11:30 Iohexol (Omnipaque 300 Mg/ml) 50 ml STK-MED ONCE 08/15/19 10:58 08/15/19 10:59 DC Iohexol (Omnipaque 350 Mg/ml) 90 ml 1X ONCE 07/04/19 03:30 07/04/19 03:31 DC 07/04/19 03:25 Ketorolac Tromethamine (Toradol 30mg Vial) 30 mg 1X ONCE 07/04/19 03:00 07/04/19 03:01 DC 07/04/19 02:54 Lidocaine HCl (Buffered Lidocaine 1%) 6 ml 1X ONCE 08/30/19 14:15 08/30/19 14:16 DC 08/30/19 14:15 Lidocaine HCl (Glydo (Lidocaine) Jelly) 1 ramu 1X ONCE 07/08/19 14:30 07/08/19 14:31 DC 07/08/19 16:38 Lidocaine HCl (Xylocaine-Mpf 1% 2ml Vial) 2 ml PRN 1X PRN 08/15/19 07:00 08/16/19 06:59 DC Linezolid/Dextrose 300 ml @ 300 mls/hr Q12HR 09/04/19 09:00 09/07/19 08:11 DC 09/06/19 21:08 Lorazepam (Ativan Inj) 0.25 mg PRN Q4HRS PRN 09/21/19 07:30 09/21/19 07:55 Magnesium Sulfate 50 ml @ 25 mls/hr 1X ONCE 08/28/19 09:00 08/28/19 10:59 DC 08/28/19 10:44 Meropenem 1 gm/ Sodium Chloride 100 ml @ 200 mls/hr Q8HRS 08/16/19 14:00 09/09/19 09:31 DC 09/09/19 05:53 Meropenem 500 mg/ Sodium Chloride 50 ml @ 100 mls/hr Q6HRS 09/12/19 18:00 09/14/19 09:59 DC 09/14/19 06:02 Metoclopramide HCl (Reglan Vial) 10 mg PRN Q3HRS PRN 08/27/19 16:45 09/01/19 04:25 Metoprolol Tartrate (Lopressor Vial) 5 mg 1X ONCE 09/04/19 15:15 09/04/19 15:16 DC 09/04/19 15:31 Metronidazole 100 ml @ 100 mls/hr Q8HRS 08/02/19 10:00 08/09/19 08:10 DC 08/09/19 06:04 Micafungin Sodium 100 mg/Dextrose 100 ml @ 100 mls/hr Q24H 08/22/19 11:00 09/14/19 09:59 DC 09/13/19 12:17 Midazolam HCl (Versed) 5 mg 1X ONCE 08/26/19 09:15 08/26/19 09:16 DC 08/26/19 09:30 Midazolam HCl 100 mg/Sodium Chloride 100 ml @ 7 mls/hr CONT PRN 07/16/19 16:00 09/21/19 14:38 DC 07/27/19 15:35 Midazolam HCl 50 mg/Sodium Chloride 50 ml @ 0 mls/hr CONT PRN 07/11/19 08:15 07/16/19 15:59 DC 07/14/19 22:39 Morphine Sulfate (Morphine Sulfate) 2 mg PRN Q2HR PRN 07/04/19 05:00 07/05/19 14:15 DC 07/05/19 12:26 Multi-Ingred Cream/Lotion/Oil/ Oint (Artificial Tears Eye Ointment) 1 ramu PRN Q1HR PRN 07/13/19 17:30 09/21/19 14:39 DC 08/01/19 08:19 Naloxone HCl (Narcan) 0.4 mg PRN Q2MIN PRN 08/15/19 14:30 UNV Norepinephrine Bitartrate 8 mg/ Dextrose 258 ml @ 17.299 mls/ hr CONT PRN 07/05/19 15:30 08/05/19 09:19 DC 08/02/19 12:48 Ondansetron HCl (Zofran) 4 mg STK-MED ONCE 08/15/19 10:56 08/15/19 10:57 DC Pantoprazole Sodium (PROTONIX VIAL for IV PUSH) 40 mg DAILYAC 07/04/19 11:30 09/23/19 07:26 Phenylephrine HCl (PHENYLEPHRINE in 0.9% NACL PF) 1 mg STK-MED ONCE 08/15/19 12:34 08/15/19 12:34 DC Piperacillin Sod/ Tazobactam Sod 3.375 gm/Sodium Chloride 50 ml @ 100 mls/hr Q6HRS 09/14/19 12:00 09/22/19 07:26 DC 09/22/19 06:10 Piperacillin Sod/ Tazobactam Sod 4.5 gm/Sodium Chloride 100 ml @ 200 mls/hr 1X ONCE 07/04/19 06:00 07/04/19 06:29 DC 07/04/19 05:44 Potassium Chloride 110 meq/ Magnesium Sulfate 20 meq/ Multivitamins 10 ml/Chromium/ Copper/Manganese/ Seleni/Zn 1 ml/ Insulin Human Regular 15 unit/ Total Parenteral Nutrition/Amino Acids/Dextrose/ Fat Emulsion Intravenous 1,800 ml @ 75 mls/hr TPN CONT 09/11/19 22:00 09/12/19 21:59 DC 09/11/19 22:48 Potassium Chloride 15 meq/ Bicarbonate Dialysis Soln w/ out KCl 5,007.5 ml @ 1,000 mls/ hr Q5H1M 07/17/19 20:00 07/21/19 13:08 DC 07/20/19 18:14 Potassium Chloride 20 meq/ Bicarbonate Dialysis Soln w/ out KCl 5,010 ml @ 1,000 mls/hr Q5H1M 07/13/19 16:00 07/17/19 19:59 DC 07/17/19 14:54 Potassium Chloride 40 meq/ Potassium Acetate 60 meq/Magnesium Sulfate 10 meq/ Multivitamins 10 ml/Chromium/ Copper/Manganese/ Seleni/Zn 1 ml/ Insulin Human Regular 20 unit/ Total Parenteral Nutrition/Amino Acids/Dextrose/ Fat Emulsion Intravenous 1,800 ml @ 75 mls/hr TPN CONT 09/22/19 22:00 09/23/19 21:59 DC 09/23/19 00:03 Potassium Chloride 70 meq/ Magnesium Sulfate 20 meq/ Multivitamins 10 ml/Chromium/ Copper/Manganese/ Seleni/Zn 1 ml/ Insulin Human Regular 15 unit/ Total Parenteral Nutrition/Amino Acids/Dextrose/ Fat Emulsion Intravenous 1,800 ml @ 75 mls/hr TPN CONT 09/16/19 22:00 09/17/19 21:59 DC 09/16/19 23:13 Potassium Chloride 75 meq/ Magnesium Sulfate 15 meq/ Multivitamins 10 ml/Chromium/ Copper/Manganese/ Seleni/Zn 0.5 ml/ Insulin Human Regular 15 unit/ Total Parenteral Nutrition/Amino Acids/Dextrose/ Fat Emulsion Intravenous 1,920 ml @ 80 mls/hr TPN CONT 08/27/19 22:00 08/28/19 21:59 DC 08/27/19 22:41 Potassium Chloride 75 meq/ Magnesium Sulfate 15 meq/Calcium Gluconate 8 meq/ Multivitamins 10 ml/Chromium/ Copper/Manganese/ Seleni/Zn 0.5 ml/ Insulin Human Regular 15 unit/ Total Parenteral Nutrition/Amino Acids/Dextrose/ Fat Emulsion Intravenous 1,920 ml @ 80 mls/hr TPN CONT 08/25/19 22:00 08/26/19 21:59 DC 08/25/19 22:28 Potassium Chloride 75 meq/ Magnesium Sulfate 15 meq/Calcium Gluconate 8 meq/ Multivitamins 10 ml/Chromium/ Copper/Manganese/ Seleni/Zn 0.5 ml/ Insulin Human Regular 20 unit/ Total Parenteral Nutrition/Amino Acids/Dextrose/ Fat Emulsion Intravenous 1,920 ml @ 80 mls/hr TPN CONT 08/24/19 22:00 08/25/19 21:59 DC 08/24/19 22:00 Potassium Chloride 75 meq/ Magnesium Sulfate 15 meq/Calcium Gluconate 8 meq/ Multivitamins 10 ml/Chromium/ Copper/Manganese/ Seleni/Zn 0.5 ml/ Insulin Human Regular 25 unit/ Total Parenteral Nutrition/Amino Acids/Dextrose/ Fat Emulsion Intravenous 1,920 ml @ 80 mls/hr TPN CONT 08/22/19 22:00 08/23/19 21:59 DC 08/22/19 23:08 Potassium Chloride 75 meq/ Magnesium Sulfate 20 meq/Calcium Gluconate 10 meq/ Multivitamins 10 ml/Chromium/ Copper/Manganese/ Seleni/Zn 0.5 ml/ Insulin Human Regular 25 unit/ Total Parenteral Nutrition/Amino Acids/Dextrose/ Fat Emulsion Intravenous 1,920 ml @ 80 mls/hr TPN CONT 08/21/19 22:00 08/22/19 21:59 DC 08/21/19 22:04 Potassium Chloride 75 meq/ Magnesium Sulfate 20 meq/Calcium Gluconate 10 meq/ Multivitamins 10 ml/Chromium/ Copper/Manganese/ Seleni/Zn 0.5 ml/ Insulin Human Regular 30 unit/ Total Parenteral Nutrition/Amino Acids/Dextrose/ Fat Emulsion Intravenous 1,920 ml @ 80 mls/hr TPN CONT 08/20/19 22:00 08/21/19 22:00 DC 08/20/19 21:51 Potassium Chloride 80 meq/ Magnesium Sulfate 20 meq/ Multivitamins 10 ml/Chromium/ Copper/Manganese/ Seleni/Zn 0.5 ml/ Insulin Human Regular 15 unit/ Total Parenteral Nutrition/Amino Acids/Dextrose/ Fat Emulsion Intravenous 1,920 ml @ 80 mls/hr TPN CONT 08/30/19 22:00 08/31/19 21:59 DC 08/30/19 21:40 Potassium Chloride 80 meq/ Magnesium Sulfate 20 meq/ Multivitamins 10 ml/Chromium/ Copper/Manganese/ Seleni/Zn 1 ml/ Insulin Human Regular 15 unit/ Total Parenteral Nutrition/Amino Acids/Dextrose/ Fat Emulsion Intravenous 1,800 ml @ 75 mls/hr TPN CONT 09/18/19 22:00 09/19/19 21:59 DC 09/18/19 21:54 Potassium Chloride 90 meq/ Magnesium Sulfate 20 meq/ Multivitamins 10 ml/Chromium/ Copper/Manganese/ Seleni/Zn 1 ml/ Insulin Human Regular 15 unit/ Total Parenteral Nutrition/Amino Acids/Dextrose/ Fat Emulsion Intravenous 1,800 ml @ 75 mls/hr TPN CONT 09/07/19 22:00 09/08/19 21:59 DC 09/07/19 22:28 Potassium Chloride 90 meq/ Magnesium Sulfate 20 meq/ Multivitamins 10 ml/Chromium/ Copper/Manganese/ Seleni/Zn 1 ml/ Insulin Human Regular 20 unit/ Total Parenteral Nutrition/Amino Acids/Dextrose/ Fat Emulsion Intravenous 1,800 ml @ 75 mls/hr TPN CONT 09/21/19 22:00 09/22/19 21:59 DC 09/21/19 23:13 Potassium Chloride/Water 100 ml @ 100 mls/hr 1X ONCE 09/19/19 10:00 09/19/19 10:59 DC 09/19/19 10:15 Potassium Phosphate 20 mmol/ Sodium Chloride 106.6667 ml @ 51.667 m... 1X ONCE 07/13/19 13:00 07/13/19 15:03 DC 07/13/19 12:51 Potassium Acetate 30 meq/Magnesium Sulfate 20 meq/ Calcium Gluconate 10 meq/ Multivitamins 10 ml/Chromium/ Copper/Manganese/ Seleni/Zn 0.5 ml/ Insulin Human Regular 30 unit/ Potassium Chloride 30 meq/ Total Parenteral Nutrition/Amino Acids/Dextrose/ Fat Emulsion Intravenous 1,920 ml @ 80 mls/hr TPN CONT 08/19/19 22:00 08/20/19 21:59 DC 08/19/19 22:34 Potassium Acetate 55 meq/Magnesium Sulfate 20 meq/ Calcium Gluconate 10 meq/ Multivitamins 10 ml/Chromium/ Copper/Manganese/ Seleni/Zn 0.5 ml/ Insulin Human Regular 30 unit/ Total Parenteral Nutrition/Amino Acids/Dextrose/ Fat Emulsion Intravenous 1,920 ml @ 80 mls/hr TPN CONT 08/18/19 22:00 08/19/19 21:59 DC 08/19/19 01:00 Potassium Acetate 55 meq/Magnesium Sulfate 20 meq/ Calcium Gluconate 10 meq/ Multivitamins 10 ml/Chromium/ Copper/Manganese/ Seleni/Zn 0.5 ml/ Insulin Human Regular 35 unit/ Total Parenteral Nutrition/Amino Acids/Dextrose/ Fat Emulsion Intravenous 1,920 ml @ 80 mls/hr TPN CONT 08/16/19 22:00 08/17/19 21:59 DC 08/16/19 22:02 Potassium Acetate 60 meq/Magnesium Sulfate 5 meq/ Multivitamins 10 ml/Chromium/ Copper/Manganese/ Seleni/Zn 1 ml/ Insulin Human Regular 30 unit/ Total Parenteral Nutrition/Amino Acids/Dextrose/ Fat Emulsion Intravenous 1,920 ml @ 80 mls/hr TPN CONT 09/24/19 22:00 09/25/19 21:59 Potassium Acetate 65 meq/Magnesium Sulfate 20 meq/ Calcium Gluconate 10 meq/ Multivitamins 10 ml/Chromium/ Copper/Manganese/ Seleni/Zn 0.5 ml/ Insulin Human Regular 30 unit/ Total Parenteral Nutrition/Amino Acids/Dextrose/ Fat Emulsion Intravenous 1,920 ml @ 80 mls/hr TPN CONT 08/17/19 22:00 08/18/19 21:59 DC 08/17/19 22:22 Potassium Acetate 80 meq/Magnesium Sulfate 5 meq/ Multivitamins 10 ml/Chromium/ Copper/Manganese/ Seleni/Zn 1 ml/ Insulin Human Regular 20 unit/ Total Parenteral Nutrition/Amino Acids/Dextrose/ Fat Emulsion Intravenous 1,920 ml @ 80 mls/hr TPN CONT 09/23/19 22:00 09/24/19 21:59 09/23/19 21:59 Prochlorperazine Edisylate (Compazine) 5 mg PACU PRN PRN 08/15/19 07:00 08/16/19 06:59 DC Propofol 20 ml @ As Directed STK-MED ONCE 08/15/19 12:26 08/15/19 12:27 DC Ringer's Solution 1,000 ml @ 30 mls/hr Q24H 08/15/19 07:00 08/15/19 18:59 DC Rocuronium [place] (Zemuron) 50 mg STK-MED ONCE 08/15/19 10:56 08/15/19 10:57 DC Saliva Substitute (Biotene Moisturizing Mouth) 2 spray PRN Q15MIN PRN 09/08/19 11:00 Sevoflurane (Ultane) 60 ml STK-MED ONCE 08/15/19 12:26 08/15/19 12:27 DC Sodium Bicarbonate 50 meq/Sodium Chloride 1,050 ml @ 75 mls/hr Q14H 07/06/19 07:30 07/11/19 10:28 DC 07/10/19 21:10 Sodium Acetate 50 meq/Potassium Acetate 55 meq/ Magnesium Sulfate 20 meq/Calcium Gluconate 10 meq/ Multivitamins 10 ml/Chromium/ Copper/Manganese/ Seleni/Zn 0.5 ml/ Insulin Human Regular 35 unit/ Total Parenteral Nutrition/Amino Acids/Dextrose/ Fat Emulsion Intravenous 1,800 ml @ 75 mls/hr TPN CONT 08/13/19 22:00 08/14/19 21:59 DC 08/13/19 22:03 Sodium Chloride 1,000 ml @ 25 mls/hr Q24H 08/15/19 14:30 UNV Sodium Chloride (Normal Saline Flush) 3 ml QSHIFT PRN 08/15/19 13:45 Sodium Chloride 90 meq/Calcium Gluconate 10 meq/ Multivitamins 10 ml/Chromium/ Copper/Manganese/ Seleni/Zn 0.5 ml/ Total Parenteral Nutrition/Amino Acids/Dextrose/ Fat Emulsion Intravenous 1,512 ml @ 63 mls/hr TPN CONT 07/06/19 22:00 07/07/19 21:59 DC 07/06/19 22:06 Sodium Chloride 90 meq/Calcium Gluconate 10 meq/ Multivitamins 10 ml/Chromium/ Copper/Manganese/ Seleni/Zn 1 ml/ Total Parenteral Nutrition/Amino Acids/Dextrose/ Fat Emulsion Intravenous 55.005 ml @ 2.292 mls/hr TPN CONT 07/06/19 22:00 07/06/19 12:33 DC Sodium Chloride 90 meq/Magnesium Sulfate 10 meq/ Calcium Gluconate 20 meq/ Multivitamins 10 ml/Chromium/ Copper/Manganese/ Seleni/Zn 0.5 ml/ Total Parenteral Nutrition/Amino Acids/Dextrose/ Fat Emulsion Intravenous 1,512 ml @ 63 mls/hr TPN CONT 07/07/19 22:00 07/08/19 21:59 DC 07/07/19 22:25 Sodium Chloride 90 meq/Magnesium Sulfate 12 meq/ Calcium Gluconate 15 meq/ Multivitamins 10 ml/Chromium/ Copper/Manganese/ Seleni/Zn 0.5 ml/ Insulin Human Regular 25 unit/ Total Parenteral Nutrition/Amino Acids/Dextrose/ Fat Emulsion Intravenous 1,400 ml @ 58.333 mls/ hr TPN CONT 07/27/19 22:00 07/28/19 21:59 DC 07/27/19 21:41 Sodium Chloride 90 meq/Potassium Chloride 15 meq/ Magnesium Sulfate 12 meq/Calcium Gluconate 15 meq/ Multivitamins 10 ml/Chromium/ Copper/Manganese/ Seleni/Zn 0.5 ml/ Insulin Human Regular 25 unit/ Total Parenteral Nutrition/Amino Acids/Dextrose/ Fat Emulsion Intravenous 1,400 ml @ 58.333 mls/ hr TPN CONT 07/26/19 22:00 07/27/19 21:59 DC 07/26/19 22:13 Sodium Chloride 90 meq/Potassium Chloride 15 meq/ Potassium Phosphate 10 mmol/ Magnesium Sulfate 8 meq/Calcium Gluconate 15 meq/ Multivitamins 10 ml/Chromium/ Copper/Manganese/ Seleni/Zn 0.5 ml/ Insulin Human Regular 25 unit/ Total Parenteral Nutrition/Amino Acids/Dextrose/ Fat Emulsion Intravenous 1,400 ml @ 58.333 mls/ hr TPN CONT 07/24/19 22:00 07/25/19 21:59 DC 07/24/19 21:20 Sodium Chloride 90 meq/Potassium Chloride 15 meq/ Potassium Phosphate 10 mmol/ Magnesium Sulfate 10 meq/Calcium Gluconate 20 meq/ Multivitamins 10 ml/Chromium/ Copper/Manganese/ Seleni/Zn 0.5 ml/ Total Parenteral Nutrition/Amino Acids/Dextrose/ Fat Emulsion Intravenous 1,400 ml @ 58.333 mls/ hr TPN CONT 07/11/19 22:00 07/12/19 21:59 DC 07/11/19 21:42 Sodium Chloride 90 meq/Potassium Chloride 15 meq/ Potassium Phosphate 10 mmol/ Magnesium Sulfate 12 meq/Calcium Gluconate 15 meq/ Multivitamins 10 ml/Chromium/ Copper/Manganese/ Seleni/Zn 0.5 ml/ Insulin Human Regular 25 unit/ Total Parenteral Nutrition/Amino Acids/Dextrose/ Fat Emulsion Intravenous 1,400 ml @ 58.333 mls/ hr TPN CONT 07/25/19 22:00 07/26/19 21:59 DC 07/25/19 22:24 Sodium Chloride 90 meq/Potassium Chloride 15 meq/ Potassium Phosphate 15 mmol/ Magnesium Sulfate 10 meq/Calcium Gluconate 15 meq/ Multivitamins 10 ml/Chromium/ Copper/Manganese/ Seleni/Zn 0.5 ml/ Total Parenteral Nutrition/Amino Acids/Dextrose/ Fat Emulsion Intravenous 1,400 ml @ 58.333 mls/ hr TPN CONT 07/12/19 22:00 07/13/19 21:59 DC 07/12/19 22:17 Sodium Chloride 90 meq/Potassium Chloride 15 meq/ Potassium Phosphate 15 mmol/ Magnesium Sulfate 10 meq/Calcium Gluconate 20 meq/ Multivitamins 10 ml/Chromium/ Copper/Manganese/ Seleni/Zn 0.5 ml/ Total Parenteral Nutrition/Amino Acids/Dextrose/ Fat Emulsion Intravenous 1,200 ml @ 50 mls/hr TPN CONT 07/10/19 22:00 07/10/19 14:17 DC Sodium Chloride 90 meq/Potassium Chloride 15 meq/ Potassium Phosphate 18 mmol/ Magnesium Sulfate 8 meq/Calcium Gluconate 15 meq/ Multivitamins 10 ml/Chromium/ Copper/Manganese/ Seleni/Zn 0.5 ml/ Insulin Human Regular 10 unit/ Total Parenteral Nutrition/Amino Acids/Dextrose/ Fat Emulsion Intravenous 1,400 ml @ 58.333 mls/ hr TPN CONT 07/15/19 22:00 07/16/19 21:59 DC 07/15/19 21:43 Sodium Chloride 90 meq/Potassium Chloride 15 meq/ Potassium Phosphate 18 mmol/ Magnesium Sulfate 8 meq/Calcium Gluconate 15 meq/ Multivitamins 10 ml/Chromium/ Copper/Manganese/ Seleni/Zn 0.5 ml/ Insulin Human Regular 15 unit/ Total Parenteral Nutrition/Amino Acids/Dextrose/ Fat Emulsion Intravenous 1,400 ml @ 58.333 mls/ hr TPN CONT 07/18/19 22:00 07/19/19 21:59 DC 07/18/19 21:47 Sodium Chloride 90 meq/Potassium Chloride 15 meq/ Potassium Phosphate 18 mmol/ Magnesium Sulfate 8 meq/Calcium Gluconate 15 meq/ Multivitamins 10 ml/Chromium/ Copper/Manganese/ Seleni/Zn 0.5 ml/ Insulin Human Regular 20 unit/ Total Parenteral Nutrition/Amino Acids/Dextrose/ Fat Emulsion Intravenous 1,400 ml @ 58.333 mls/ hr TPN CONT 07/21/19 22:00 07/22/19 21:59 DC 07/21/19 22:45 Sodium Chloride 90 meq/Potassium Chloride 15 meq/ Potassium Phosphate 18 mmol/ Magnesium Sulfate 8 meq/Calcium Gluconate 15 meq/ Multivitamins 10 ml/Chromium/ Copper/Manganese/ Seleni/Zn 0.5 ml/ Total Parenteral Nutrition/Amino Acids/Dextrose/ Fat Emulsion Intravenous 1,400 ml @ 58.333 mls/ hr TPN CONT 07/14/19 22:00 07/15/19 21:59 DC 07/14/19 22:00 Sodium Chloride 90 meq/Potassium Phosphate 15 mmol/ Magnesium Sulfate 12 meq/Calcium Gluconate 15 meq/ Multivitamins 10 ml/Chromium/ Copper/Manganese/ Seleni/Zn 0.5 ml/ Insulin Human Regular 30 unit/ Total Parenteral Nutrition/Amino Acids/Dextrose/ Fat Emulsion Intravenous 1,400 ml @ 58.333 mls/ hr TPN CONT 07/29/19 22:00 07/30/19 21:59 DC 07/29/19 21:49 Sodium Chloride 90 meq/Potassium Phosphate 15 mmol/ Magnesium Sulfate 12 meq/Calcium Gluconate 15 meq/ Multivitamins 10 ml/Chromium/ Copper/Manganese/ Seleni/Zn 0.5 ml/ Insulin Human Regular 40 unit/ Total Parenteral Nutrition/Amino Acids/Dextrose/ Fat Emulsion Intravenous 1,400 ml @ 58.333 mls/ hr TPN CONT 07/30/19 22:00 07/31/19 21:59 DC 07/30/19 21:21 Sodium Chloride 90 meq/Potassium Phosphate 19 mmol/ Magnesium Sulfate 12 meq/Calcium Gluconate 15 meq/ Multivitamins 10 ml/Chromium/ Copper/Manganese/ Seleni/Zn 0.5 ml/ Insulin Human Regular 40 unit/ Total Parenteral Nutrition/Amino Acids/Dextrose/ Fat Emulsion Intravenous 1,400 ml @ 58.333 mls/ hr TPN CONT 07/31/19 22:00 08/01/19 21:59 DC 07/31/19 21:54 Sodium Chloride 90 meq/Potassium Phosphate 5 mmol/ Magnesium Sulfate 12 meq/Calcium Gluconate 15 meq/ Multivitamins 10 ml/Chromium/ Copper/Manganese/ Seleni/Zn 0.5 ml/ Insulin Human Regular 30 unit/ Total Parenteral Nutrition/Amino Acids/Dextrose/ Fat Emulsion Intravenous 1,400 ml @ 58.333 mls/ hr TPN CONT 07/28/19 22:00 07/29/19 21:59 DC 07/28/19 22:08 Sodium Chloride 100 meq/Potassium Chloride 40 meq/ Magnesium Sulfate 15 meq/Calcium Gluconate 15 meq/ Multivitamins 10 ml/Chromium/ Copper/Manganese/ Seleni/Zn 0.5 ml/ Insulin Human Regular 35 unit/ Total Parenteral Nutrition/Amino Acids/Dextrose/ Fat Emulsion Intravenous 1,400 ml @ 58.333 mls/ hr TPN CONT 08/07/19 22:00 08/08/19 21:59 DC 08/07/19 22:46 Sodium Chloride 100 meq/Potassium Chloride 40 meq/ Magnesium Sulfate 20 meq/Calcium Gluconate 10 meq/ Multivitamins 10 ml/Chromium/ Copper/Manganese/ Seleni/Zn 0.5 ml/ Insulin Human Regular 35 unit/ Total Parenteral Nutrition/Amino Acids/Dextrose/ Fat Emulsion Intravenous 1,400 ml @ 58.333 mls/ hr TPN CONT 08/11/19 22:00 08/12/19 21:59 DC 08/12/19 00:06 Sodium Chloride 100 meq/Potassium Chloride 40 meq/ Magnesium Sulfate 20 meq/Calcium Gluconate 15 meq/ Multivitamins 10 ml/Chromium/ Copper/Manganese/ Seleni/Zn 0.5 ml/ Insulin Human Regular 35 unit/ Total Parenteral Nutrition/Amino Acids/Dextrose/ Fat Emulsion Intravenous 1,400 ml @ 58.333 mls/ hr TPN CONT 08/10/19 22:00 08/11/19 21:59 DC 08/10/19 22:27 Sodium Chloride 100 meq/Potassium Phosphate 10 mmol/ Magnesium Sulfate 12 meq/Calcium Gluconate 15 meq/ Multivitamins 10 ml/Chromium/ Copper/Manganese/ Seleni/Zn 0.5 ml/ Insulin Human Regular 35 unit/ Potassium Chloride 20 meq/ Total Parenteral Nutrition/Amino Acids/Dextrose/ Fat Emulsion Intravenous 1,400 ml @ 58.333 mls/ hr TPN CONT 08/04/19 22:00 08/05/19 21:59 DC 08/04/19 22:10 Sodium Chloride 100 meq/Potassium Phosphate 19 mmol/ Magnesium Sulfate 12 meq/Calcium Gluconate 15 meq/ Multivitamins 10 ml/Chromium/ Copper/Manganese/ Seleni/Zn 0.5 ml/ Insulin Human Regular 40 unit/ Potassium Chloride 20 meq/ Total Parenteral Nutrition/Amino Acids/Dextrose/ Fat Emulsion Intravenous 1,400 ml @ 58.333 mls/ hr TPN CONT 08/03/19 22:00 08/04/19 21:59 DC 08/03/19 21:20 Sodium Chloride 100 meq/Potassium Phosphate 5 mmol/ Magnesium Sulfate 12 meq/Calcium Gluconate 15 meq/ Multivitamins 10 ml/Chromium/ Copper/Manganese/ Seleni/Zn 0.5 ml/ Insulin Human Regular 35 unit/ Potassium Chloride 20 meq/ Total Parenteral Nutrition/Amino Acids/Dextrose/ Fat Emulsion Intravenous 1,400 ml @ 58.333 mls/ hr TPN CONT 08/05/19 22:00 08/06/19 21:59 DC 08/05/19 22:59 Succinylcholine Chloride (Anectine) 120 mg 1X ONCE 07/11/19 08:30 07/11/19 08:31 DC 07/11/19 08:34 Vecuronium [place] (Norcuron Bolus) 6 mg PRN Q6HRS PRN 08/25/19 19:15 08/25/19 19:35 DC Current Medications Medications (Trade) Dose Ordered Sig/Yvon Route PRN Reason Start Time Stop Time Status Last Admin Dose Admin Potassium Acetate 80 meq/Magnesium Sulfate 5 meq/ Multivitamins 10 ml/Chromium/ Copper/Manganese/ Seleni/Zn 1 ml/ Insulin Human Regular 20 unit/ Total Parenteral Nutrition/Amino Acids/Dextrose/ Fat Emulsion Intravenous 1,920 ml @ 80 mls/hr TPN CONT IV 09/23/19 22:00 09/24/19 21:59 09/23/19 21:59 LAB Lab: Laboratory Tests Test 09/23/19 12:26 09/23/19 16:00 09/23/19 17:45 09/23/19 23:35 Glucose (Fingerstick) 220 mg/dL (70-99) H 209 mg/dL (70-99) H 178 mg/dL (70-99) H White Blood Count 32.2 x10^3/uL (4.0-11.0) H Red Blood Count 2.97 x10^6/uL (3.50-5.40) L Hemoglobin 8.4 g/dL (12.0-15.5) L Hematocrit 28.3 % (36.0-47.0) L Mean Corpuscular Volume 95 fL (79-100) # Mean Corpuscular Hemoglobin 28 pg (25-35) Mean Corpuscular Hemoglobin Concent 30 g/dL (31-37) L Red Cell Distribution Width 20.8 % (11.5-14.5) H Platelet Count 787 x10^3/uL (140-400) H Sodium Level 151 mmol/L (136-145) H Potassium Level 4.6 mmol/L (3.5-5.1) Chloride Level 113 mmol/L (98-107) H Carbon Dioxide Level 19 mmol/L (21-32) L Anion Gap 19 (6-14) H Blood Urea Nitrogen 58 mg/dL (7-20) H Creatinine 1.8 mg/dL (0.6-1.0) H Estimated GFR (Cockcroft-Gault) 29.9 BUN/Creatinine Ratio 32 (6-20) H Glucose Level 241 mg/dL (70-99) H Calcium Level 11.0 mg/dL (8.5-10.1) H Total Bilirubin 0.5 mg/dL (0.2-1.0) Aspartate Amino Transferase (AST) 31 U/L (15-37) Alanine Aminotransferase (ALT) 23 U/L (14-59) Alkaline Phosphatase 131 U/L (46-116) H Total Protein 7.0 g/dL (6.4-8.2) Albumin 1.9 g/dL (3.4-5.0) L Albumin/Globulin Ratio 0.4 (1.0-1.7) L Prothrombin Time 15.3 SEC (11.7-14.0) H Prothrombin Time INR 1.3 (0.8-1.1) H Lactic Acid Level 1.9 mmol/L (0.4-2.0) Test 09/24/19 05:53 09/24/19 05:55 09/24/19 06:45 Glucose (Fingerstick) 216 mg/dL (70-99) H Sodium Level 147 mmol/L (136-145) H Potassium Level 5.1 mmol/L (3.5-5.1) Chloride Level 113 mmol/L (98-107) H Carbon Dioxide Level 26 mmol/L (21-32) Anion Gap 8 (6-14) Blood Urea Nitrogen 69 mg/dL (7-20) H Creatinine 1.9 mg/dL (0.6-1.0) H Estimated GFR (Cockcroft-Gault) 28.1 Glucose Level 240 mg/dL (70-99) H Calcium Level 10.4 mg/dL (8.5-10.1) H Phosphorus Level 4.0 mg/dL (2.6-4.7) Magnesium Level 2.4 mg/dL (1.8-2.4) Amylase Level 385 U/L (25-115) H Lipase 563 U/L (73-393) H White Blood Count 21.2 x10^3/uL (4.0-11.0) H Red Blood Count 2.44 x10^6/uL (3.50-5.40) L Hemoglobin 7.0 g/dL (12.0-15.5) *L Hematocrit 22.2 % (36.0-47.0) L Mean Corpuscular Volume 91 fL (79-100) Mean Corpuscular Hemoglobin 29 pg (25-35) Mean Corpuscular Hemoglobin Concent 31 g/dL (31-37) Red Cell Distribution Width 21.0 % (11.5-14.5) H Platelet Count 570 x10^3/uL (140-400) H Neutrophils (%) (Auto) 85 % (31-73) H Lymphocytes (%) (Auto) 11 % (24-48) L Monocytes (%) (Auto) 4 % (0-9) Eosinophils (%) (Auto) 0 % (0-3) Basophils (%) (Auto) 0 % (0-3) Neutrophils # (Auto) 18.0 x10^3/uL (1.8-7.7) H Lymphocytes # (Auto) 2.2 x10^3/uL (1.0-4.8) Monocytes # (Auto) 0.9 x10^3/uL (0.0-1.1) Eosinophils # (Auto) 0.1 x10^3/uL (0.0-0.7) Basophils # (Auto) 0.0 x10^3/uL (0.0-0.2) Laboratory Tests 09/23/19 16:00 09/24/19 06:45 Laboratory Tests 09/23/19 16:00 09/24/19 05:55 IMAGING Imaging: PATIENT: SCOTT CUELLAR ACCOUNT: [id number] : 1970 LOCATION: [address] [place] [address] AGE: 48 SEX: F EXAM STATUS: ADM IN ORD. PHYSICIAN: VINAYAK LANDRUM MD REASON: possible aspiration PROCEDURE: CHEST AP ONLY AP chest x-ray COMPARISON: Chest x-ray September 17, 2019. HISTORY: Aspiration. FINDINGS: Tracheostomy. Left PICC line tip distal SVC. The right PICC line on the prior exam has been removed. Nasogastric tube extends to the abdomen outside the [id number]. Heart size normal. No pneumothorax. Mild left greater than right pleural effusions again demonstrated along with asymmetric opacity at the left lower lobe. Mild interstitial linear densities likely representing mild edema at the lung bases also present. Bones are unremarkable. IMPRESSION: Lines and tubes as described above. Left greater than right lower lobe opacities most likely pulmonary edema and left greater than right mild pleural effusions are stable. Superimposed left lower lobe pneumonia is not excluded. Electronically signed by: Reece Carr MD (09/24/2019 8:25 AM) [id number] ASSESSMENT & PLAN A&P Plan as noted above Dictation was created using [employer] and there may be inconsistencies and errors due to the nature of real-time dictation Hemodynamically unstable?: No Is patient in severe pain?: No Is NPO status required?: No Problem Qualifiers (1) Sepsis: Sepsis type: sepsis due to unspecified organism Sepsis acute organ dysfunction status: with acute organ dysfunction Severe sepsis acute organ dysfunction type: unspecified Severe sepsis shock status: unspecified Qualified Codes: A41.9 - Sepsis, unspecified organism; R65.20 - Severe sepsis without septic shock MAISHA CONTEH MD Sep 24, 2019 11:35
[2019-09-24] MEDS: ALBUMIN HUMAN 5% 500 ML IV PRN (11:40)
--- NOTE | 2019-09-24 12:04 | PDOC ---
PROGRESS NOTES Subjective Subjective lethargic, nurse reports saturating dressings from right lateral drain site; CT scan ordered and pending Objective Objective Vital Signs Date Time Temp Pulse Resp B/P (MAP) Pulse Ox O2 Delivery O2 Flow Rate FiO2 09/24/19 11:35 100.2 124 26 88/54 100.2 09/24/19 11:00 95 Room Air 09/24/19 06:57 10.0 Intake and Output 09/24/19 07:00 Output Total 540 ml Balance -540 ml Output Urine Total 540 ml Physical Exam Physical Exam abdomen with some distension, R lateral drain site with small amount of reddish, brownish drainage Assessment Assessment Problems Medical Problems: (1) Acute pancreatitis Status: Acute (2) Cholelithiasis Status: Acute Plan Plan of Care CT abdomen pending; will follow, supportive care Comment Review of Relevant I have reviewed the following items kolby (where applicable) has been applied. Labs Laboratory Tests Test 09/22/19 12:53 09/22/19 18:08 09/22/19 22:50 09/23/19 05:15 Glucose (Fingerstick) 174 mg/dL (70-99) 139 mg/dL (70-99) 202 mg/dL (70-99) White Blood Count 11.1 x10^3/uL (4.0-11.0) Red Blood Count 3.30 x10^6/uL (3.50-5.40) Hemoglobin 9.3 g/dL (12.0-15.5) Hematocrit 29.6 % (36.0-47.0) Mean Corpuscular Volume 90 fL (79-100) Mean Corpuscular Hemoglobin 28 pg (25-35) Mean Corpuscular Hemoglobin Concent 31 g/dL (31-37) Red Cell Distribution Width 20.7 % (11.5-14.5) Platelet Count 583 x10^3/uL (140-400) Neutrophils (%) (Auto) 72 % (31-73) Lymphocytes (%) (Auto) 20 % (24-48) Monocytes (%) (Auto) 7 % (0-9) Eosinophils (%) (Auto) 2 % (0-3) Basophils (%) (Auto) 0 % (0-3) Neutrophils # (Auto) 8.0 x10^3/uL (1.8-7.7) Lymphocytes # (Auto) 2.2 x10^3/uL (1.0-4.8) Monocytes # (Auto) 0.7 x10^3/uL (0.0-1.1) Eosinophils # (Auto) 0.2 x10^3/uL (0.0-0.7) Basophils # (Auto) 0.0 x10^3/uL (0.0-0.2) Sodium Level 151 mmol/L (136-145) Potassium Level 4.0 mmol/L (3.5-5.1) Chloride Level 114 mmol/L (98-107) Carbon Dioxide Level 25 mmol/L (21-32) Anion Gap 12 (6-14) Blood Urea Nitrogen 50 mg/dL (7-20) Creatinine 1.3 mg/dL (0.6-1.0) Estimated GFR (Cockcroft-Gault) 43.5 Glucose Level 194 mg/dL (70-99) Calcium Level 11.0 mg/dL (8.5-10.1) Phosphorus Level 4.4 mg/dL (2.6-4.7) Magnesium Level 2.6 mg/dL (1.8-2.4) Thyroid Stimulating Hormone (TSH) 3.722 uIU/mL (0.358-3.74) Test 09/23/19 06:22 09/23/19 09:42 09/23/19 12:26 09/23/19 16:00 Glucose (Fingerstick) 218 mg/dL (70-99) 177 mg/dL (70-99) 220 mg/dL (70-99) White Blood Count 32.2 x10^3/uL (4.0-11.0) Red Blood Count 2.97 x10^6/uL (3.50-5.40) Hemoglobin 8.4 g/dL (12.0-15.5) Hematocrit 28.3 % (36.0-47.0) Mean Corpuscular Volume 95 fL (79-100) Mean Corpuscular Hemoglobin 28 pg (25-35) Mean Corpuscular Hemoglobin Concent 30 g/dL (31-37) Red Cell Distribution Width 20.8 % (11.5-14.5) Platelet Count 787 x10^3/uL (140-400) Sodium Level 151 mmol/L (136-145) Potassium Level 4.6 mmol/L (3.5-5.1) Chloride Level 113 mmol/L (98-107) Carbon Dioxide Level 19 mmol/L (21-32) Anion Gap 19 (6-14) Blood Urea Nitrogen 58 mg/dL (7-20) Creatinine 1.8 mg/dL (0.6-1.0) Estimated GFR (Cockcroft-Gault) 29.9 BUN/Creatinine Ratio 32 (6-20) Glucose Level 241 mg/dL (70-99) Calcium Level 11.0 mg/dL (8.5-10.1) Total Bilirubin 0.5 mg/dL (0.2-1.0) Aspartate Amino Transf (AST/SGOT) 31 U/L (15-37) Alanine Aminotransferase (ALT/SGPT) 23 U/L (14-59) Alkaline Phosphatase 131 U/L (46-116) Total Protein 7.0 g/dL (6.4-8.2) Albumin 1.9 g/dL (3.4-5.0) Albumin/Globulin Ratio 0.4 (1.0-1.7) Test 09/23/19 17:45 09/23/19 23:35 09/24/19 05:53 09/24/19 05:55 Prothrombin Time 15.3 SEC (11.7-14.0) Prothromb Time International Ratio 1.3 (0.8-1.1) Glucose (Fingerstick) 209 mg/dL (70-99) 178 mg/dL (70-99) 216 mg/dL (70-99) Lactic Acid Level 1.9 mmol/L (0.4-2.0) Sodium Level 147 mmol/L (136-145) Potassium Level 5.1 mmol/L (3.5-5.1) Chloride Level 113 mmol/L (98-107) Carbon Dioxide Level 26 mmol/L (21-32) Anion Gap 8 (6-14) Blood Urea Nitrogen 69 mg/dL (7-20) Creatinine 1.9 mg/dL (0.6-1.0) Estimated GFR (Cockcroft-Gault) 28.1 Glucose Level 240 mg/dL (70-99) Calcium Level 10.4 mg/dL (8.5-10.1) Phosphorus Level 4.0 mg/dL (2.6-4.7) Magnesium Level 2.4 mg/dL (1.8-2.4) Amylase Level 385 U/L (25-115) Lipase 563 U/L (73-393) Test 09/24/19 06:45 White Blood Count 21.2 x10^3/uL (4.0-11.0) Red Blood Count 2.44 x10^6/uL (3.50-5.40) Hemoglobin 7.0 g/dL (12.0-15.5) Hematocrit 22.2 % (36.0-47.0) Mean Corpuscular Volume 91 fL (79-100) Mean Corpuscular Hemoglobin 29 pg (25-35) Mean Corpuscular Hemoglobin Concent 31 g/dL (31-37) Red Cell Distribution Width 21.0 % (11.5-14.5) Platelet Count 570 x10^3/uL (140-400) Neutrophils (%) (Auto) 85 % (31-73) Lymphocytes (%) (Auto) 11 % (24-48) Monocytes (%) (Auto) 4 % (0-9) Eosinophils (%) (Auto) 0 % (0-3) Basophils (%) (Auto) 0 % (0-3) Neutrophils # (Auto) 18.0 x10^3/uL (1.8-7.7) Lymphocytes # (Auto) 2.2 x10^3/uL (1.0-4.8) Monocytes # (Auto) 0.9 x10^3/uL (0.0-1.1) Eosinophils # (Auto) 0.1 x10^3/uL (0.0-0.7) Basophils # (Auto) 0.0 x10^3/uL (0.0-0.2) Laboratory Tests Test 09/23/19 12:26 09/23/19 16:00 09/23/19 17:45 09/23/19 23:35 Glucose (Fingerstick) 220 mg/dL (70-99) 209 mg/dL (70-99) 178 mg/dL (70-99) White Blood Count 32.2 x10^3/uL (4.0-11.0) Red Blood Count 2.97 x10^6/uL (3.50-5.40) Hemoglobin 8.4 g/dL (12.0-15.5) Hematocrit 28.3 % (36.0-47.0) Mean Corpuscular Volume 95 fL (79-100) Mean Corpuscular Hemoglobin 28 pg (25-35) Mean Corpuscular Hemoglobin Concent 30 g/dL (31-37) Red Cell Distribution Width 20.8 % (11.5-14.5) Platelet Count 787 x10^3/uL (140-400) Sodium Level 151 mmol/L (136-145) Potassium Level 4.6 mmol/L (3.5-5.1) Chloride Level 113 mmol/L (98-107) Carbon Dioxide Level 19 mmol/L (21-32) Anion Gap 19 (6-14) Blood Urea Nitrogen 58 mg/dL (7-20) Creatinine 1.8 mg/dL (0.6-1.0) Estimated GFR (Cockcroft-Gault) 29.9 BUN/Creatinine Ratio 32 (6-20) Glucose Level 241 mg/dL (70-99) Calcium Level 11.0 mg/dL (8.5-10.1) Total Bilirubin 0.5 mg/dL (0.2-1.0) Aspartate Amino Transf (AST/SGOT) 31 U/L (15-37) Alanine Aminotransferase (ALT/SGPT) 23 U/L (14-59) Alkaline Phosphatase 131 U/L (46-116) Total Protein 7.0 g/dL (6.4-8.2) Albumin 1.9 g/dL (3.4-5.0) Albumin/Globulin Ratio 0.4 (1.0-1.7) Prothrombin Time 15.3 SEC (11.7-14.0) Prothromb Time International Ratio 1.3 (0.8-1.1) Lactic Acid Level 1.9 mmol/L (0.4-2.0) Test 09/24/19 05:53 09/24/19 05:55 09/24/19 06:45 Glucose (Fingerstick) 216 mg/dL (70-99) Sodium Level 147 mmol/L (136-145) Potassium Level 5.1 mmol/L (3.5-5.1) Chloride Level 113 mmol/L (98-107) Carbon Dioxide Level 26 mmol/L (21-32) Anion Gap 8 (6-14) Blood Urea Nitrogen 69 mg/dL (7-20) Creatinine 1.9 mg/dL (0.6-1.0) Estimated GFR (Cockcroft-Gault) 28.1 Glucose Level 240 mg/dL (70-99) Calcium Level 10.4 mg/dL (8.5-10.1) Phosphorus Level 4.0 mg/dL (2.6-4.7) Magnesium Level 2.4 mg/dL (1.8-2.4) Amylase Level 385 U/L (25-115) Lipase 563 U/L (73-393) White Blood Count 21.2 x10^3/uL (4.0-11.0) Red Blood Count 2.44 x10^6/uL (3.50-5.40) Hemoglobin 7.0 g/dL (12.0-15.5) Hematocrit 22.2 % (36.0-47.0) Mean Corpuscular Volume 91 fL (79-100) Mean Corpuscular Hemoglobin 29 pg (25-35) Mean Corpuscular Hemoglobin Concent 31 g/dL (31-37) Red Cell Distribution Width 21.0 % (11.5-14.5) Platelet Count 570 x10^3/uL (140-400) Neutrophils (%) (Auto) 85 % (31-73) Lymphocytes (%) (Auto) 11 % (24-48) Monocytes (%) (Auto) 4 % (0-9) Eosinophils (%) (Auto) 0 % (0-3) Basophils (%) (Auto) 0 % (0-3) Neutrophils # (Auto) 18.0 x10^3/uL (1.8-7.7) Lymphocytes # (Auto) 2.2 x10^3/uL (1.0-4.8) Monocytes # (Auto) 0.9 x10^3/uL (0.0-1.1) Eosinophils # (Auto) 0.1 x10^3/uL (0.0-0.7) Basophils # (Auto) 0.0 x10^3/uL (0.0-0.2) Microbiology 09/17/19 Gram Stain - Final, Complete 09/17/19 Aerobic Culture - Final, Complete 09/04/19 Blood Culture - Final, Complete NO GROWTH AFTER 5 DAYS 08/24/19 Fungal Culture - Final, Complete 08/24/19 Fungal Culture Result 1 - Final, Complete 07/31/19 Urine Culture - Final, Complete 07/31/19 Urine Culture Result 1 (ALEXANDRA) - Final, Complete Medications Current Medications Sodium Chloride 1,000 ml @ 1,000 mls/hr Q1H IV Last administered on 07/04/19at 03:00; Start 07/04/19 at 03:00; Stop 07/04/19 at 03:59; Status DC Ondansetron HCl (Zofran) 4 mg 1X ONCE IVP Last administered on 07/04/19at 03:27; Start 07/04/19 at 03:00; Stop 07/04/19 at 03:01; Status DC Morphine Sulfate (Morphine Sulfate) 4 mg 1X ONCE IV ; Start 07/04/19 at 03:00; Stop 07/04/19 at 03:01; Status Cancel Ketorolac Tromethamine (Toradol 30mg Vial) 30 mg 1X ONCE IV Last administered on 07/04/19at 02:54; Start 07/04/19 at 03:00; Stop 07/04/19 at 03:01; Status DC Fentanyl Citrate (Fentanyl 2ml Vial) 25 mcg 1X ONCE IVP Last administered on 07/04/19at 03:23; Start 07/04/19 at 03:30; Stop 07/04/19 at 03:31; Status DC Fentanyl Citrate (Fentanyl 2ml Vial) 100 mcg STK-MED ONCE .ROUTE ; Start 07/04/19 at 03:18; Stop 07/04/19 at 03:18; Status DC Iohexol (Omnipaque 350 Mg/ml) 90 ml 1X ONCE IV Last administered on 07/04/19at 03:25; Start 07/04/19 at 03:30; Stop 07/04/19 at 03:31; Status DC Info (CONTRAST GIVEN -- Rx MONITORING) 1 each PRN DAILY PRN MC SEE COMMENTS; Start 07/04/19 at 03:30; Stop 07/06/19 at 03:29; Status DC Hydromorphone HCl (Dilaudid) 0.5 mg 1X ONCE IV Last administered on 07/04/19at 03:55; Start 07/04/19 at 04:30; Stop 07/04/19 at 04:32; Status DC Ondansetron HCl (Zofran) 4 mg PRN Q8HRS PRN IV NAUSEA/VOMITING 1ST CHOICE; Start 07/04/19 at 05:00; Stop 07/04/19 at 09:27; Status DC Morphine Sulfate (Morphine Sulfate) 2 mg PRN Q2HR PRN IV SEVERE PAIN 7-10 Last administered on 07/05/19at 12:26; Start 07/04/19 at 05:00; Stop 07/05/19 at 14:15; Status DC Sodium Chloride 1,000 ml @ 125 mls/hr Q8H IV Last administered on 07/04/19at 20:56; Start 07/04/19 at 05:00; Stop 07/05/19 at 04:59; Status DC Hydromorphone HCl (Dilaudid) 0.5 mg PRN Q3HRS PRN IV SEVERE PAIN 7-10 Last administered on 07/05/19at 10:06; Start 07/04/19 at 05:00; Stop 07/05/19 at 12:01; Status DC Piperacillin Sod/ Tazobactam Sod 4.5 gm/Sodium Chloride 100 ml @ 200 mls/hr 1X ONCE IV Last administered on 07/04/19at 05:44; Start 07/04/19 at 06:00; Stop 07/04/19 at 06:29; Status DC Ondansetron HCl (Zofran) 4 mg PRN Q4HRS PRN IV NAUSEA/VOMITING 1ST CHOICE Last administered on 09/24/19at 06:27; Start 07/04/19 at 09:30 Insulin Human Lispro (HumaLOG) 0-9 UNITS Q6HRS SQ Last administered on 09/24/19at 05:54; Start 07/04/19 at 09:30 Dextrose (Dextrose 50%-Water Syringe) 12.5 gm PRN Q15MIN PRN IV SEE COMMENTS; Start 07/04/19 at 09:30 Pantoprazole Sodium (PROTONIX VIAL for IV PUSH) 40 mg DAILYAC IVP Last administered on 09/24/19at 07:30; Start 07/04/19 at 11:30 Prochlorperazine Edisylate (Compazine) 10 mg PRN Q6HRS PRN IV NAUSEA/VOMITING, 2nd CHOICE Last administered on 09/17/19at 01:26; Start 07/04/19 at 17:45 Atenolol (Tenormin) 100 mg DAILY PO ; Start 07/05/19 at 09:00; Stop 07/04/19 at 20:08; Status DC Metoprolol Tartrate (Lopressor Vial) 2.5 mg Q6HRS IVP Last administered on 07/05/19at 05:51; Start 07/04/19 at 20:15; Stop 07/05/19 at 10:02; Status DC Metoprolol Tartrate (Lopressor Vial) 5 mg Q6HRS IVP Last administered on 07/14/19at 00:12; Start 07/05/19 at 10:15; Stop 07/16/19 at 08:48; Status DC Hydromorphone HCl (Dilaudid) 1 mg PRN Q3HRS PRN IV SEVERE PAIN 7-10 Last administered on 07/11/19at 05:13; Start 07/05/19 at 12:00; Stop 07/19/19 at 00:25; Status DC Lidocaine HCl (Buffered Lidocaine 1%) 3 ml STK-MED ONCE .ROUTE ; Start 07/05/19 at 12:55; Stop 07/05/19 at 12:56; Status DC Albumin Human 500 ml @ 125 mls/hr 1X ONCE IV Last administered on 07/05/19at 14:33; Start 07/05/19 at 14:30; Stop 07/05/19 at 18:32; Status DC Norepinephrine Bitartrate 8 mg/ Dextrose 258 ml @ 17.299 mls/ hr CONT PRN IV PER PROTOCOL Last administered on 08/02/19at 12:48; Start 07/05/19 at 15:30; Stop 08/05/19 at 09:19; Status DC Sodium Chloride 1,000 ml @ 125 mls/hr Q8H IV Last administered on 07/05/19at 2 1:04; Start 07/05/19 at 16:00; Stop 07/06/19 at 02:42; Status DC Albumin Human 500 ml @ 125 mls/hr PRN BID PRN IV After every 2L NSS & BP < 90mm Last administered on 09/24/19at 11:40; Start 07/05/19 at 16:00 Iohexol (Omnipaque 300 Mg/ml) 60 ml 1X ONCE IV Last administered on 07/05/19at 17:20; Start 07/05/19 at 17:00; Stop 07/05/19 at 17:01; Status DC Info (CONTRAST GIVEN -- Rx MONITORING) 1 each PRN DAILY PRN MC SEE COMMENTS; Start 07/05/19 at 17:00; Stop 07/07/19 at 16:59; Status DC Meropenem 1 gm/ Sodium Chloride 100 ml @ 200 mls/hr Q8HRS IV Last administered on 07/06/19at 05:45; Start 07/05/19 at 20:00; Stop 07/06/19 at 08:48; Status DC Furosemide (Lasix) 40 mg 1X ONCE IVP Last administered on 07/05/19at 22:12; Start 07/05/19 at 22:30; Stop 07/05/19 at 22:31; Status DC Calcium Chloride 1000 mg/Sodium Chloride 110 ml @ 220 mls/hr 1X ONCE IV Last administered on 07/05/19at 22:11; Start 07/05/19 at 22:30; Stop 07/05/19 at 22:59; Status DC Albuterol Sulfate (Ventolin Neb Soln) 2.5 mg 1X ONCE NEB Last administered on 07/06/19at 00:56; Start 07/05/19 at 22:30; Stop 07/05/19 at 22:31; Status DC Insulin Human Regular (HumuLIN R VIAL) 5 unit 1X ONCE IV Last administered on 07/05/19at 22:14; Start 07/05/19 at 22:30; Stop 07/05/19 at 22:31; Status DC Magnesium Sulfate 50 ml @ 25 mls/hr 1X ONCE IV Last administered on 07/06/19at 02:57; Start 07/06/19 at 03:00; Stop 07/06/19 at 04:59; Status DC Calcium Gluconate 1000 mg/Sodium Chloride 110 ml @ 220 mls/hr 1X ONCE IV Last administered on 07/06/19at 02:46; Start 07/06/19 at 03:00; Stop 07/06/19 at 03:29; Status DC Sodium Chloride 1,000 ml @ 200 mls/hr Q5H IV Last administered on 07/06/19at 02:46; Start 07/06/19 at 03:00; Stop 07/06/19 at 10:21; Status DC Calcium Gluconate 1000 mg/Sodium Chloride 110 ml @ 220 mls/hr 1X ONCE IV Last administered on 07/06/19at 03:21; Start 07/06/19 at 03:30; Stop 07/06/19 at 03:59; Status DC Sodium Bicarbonate 50 meq/Sodium Chloride 1,050 ml @ 75 mls/hr Q14H IV Last administered on 07/10/19at 21:10; Start 07/06/19 at 07:30; Stop 07/11/19 at 10:28; Status DC Calcium Gluconate 2000 mg/Sodium Chloride 120 ml @ 220 mls/hr 1X ONCE IV Last administered on 07/06/19at 09:05; Start 07/06/19 at 07:30; Stop 07/06/19 at 08:02; Status DC Lidocaine HCl (Xylocaine-Mpf 1% 2ml Vial) 2 ml STK-MED ONCE .ROUTE ; Start 07/06/19 at 08:47; Stop 07/06/19 at 08:47; Status DC Meropenem 500 mg/ Sodium Chloride 50 ml @ 100 mls/hr Q12HR IV Last administered on 07/11/19at 21:01; Start 07/06/19 at 18:00; Stop 07/12/19 at 07:58; Status DC Lidocaine HCl (Buffered Lidocaine 1%) 3 ml STK-MED ONCE .ROUTE ; Start 07/06/19 at 09:46; Stop 07/06/19 at 09:46; Status DC Lidocaine HCl (Buffered Lidocaine 1%) 6 ml 1X ONCE INJ Last administered on 07/06/19at 10:26; Start 07/06/19 at 10:15; Stop 07/06/19 at 10:16; Status DC Info (Tpn Per Pharmacy) 1 each PRN DAILY PRN MC SEE COMMENTS Last administered on 09/24/19at 10:05; Start 07/06/19 at 12:00 Sodium Chloride 1,000 ml @ 1,000 mls/hr Q1H PRN IV hypotension; Start 07/06/19 at 12:07; Stop 07/06/19 at 18:06; Status DC Diphenhydramine HCl (Benadryl) 25 mg 1X PRN PRN IV ITCHING; Start 07/06/19 at 12:15; Stop 07/07/19 at 12:14; Status DC Diphenhydramine HCl (Benadryl) 25 mg 1X PRN PRN IV ITCHING; Start 07/06/19 at 12:15; Stop 07/07/19 at 12:14; Status DC Sodium Chloride 1,000 ml @ 400 mls/hr Q2H30M PRN IV PATENCY; Start 07/06/19 at 12:07; Stop 07/07/19 at 00:06; Status DC Info (PHARMACY MONITORING -- do not chart) 1 each PRN DAILY PRN MC SEE COMMENTS; Start 07/06/19 at 12:15; Stop 07/08/19 at 08:13; Status DC Sodium Chloride 90 meq/Calcium Gluconate 10 meq/ Multivitamins 10 ml/Chromium/ Copper/Manganese/ Seleni/Zn 1 ml/ Total Parenteral Nutrition/Amino Acids/Dextrose/ Fat Emulsion Intravenous 55.005 ml @ 2.292 mls/hr TPN CONT IV ; Start 07/06/19 at 22:00; Stop 07/06/19 at 12:33; Status DC Info (Tpn Per Pharmacy) 1 each PRN DAILY PRN MC SEE COMMENTS; Start 07/06/19 at 12:30; Status UNV Sodium Chloride 90 meq/Calcium Gluconate 10 meq/ Multivitamins 10 ml/Chromium/ Copper/Manganese/ Seleni/Zn 0.5 ml/ Total Parenteral Nutrition/Amino Acids/Dextrose/ Fat Emulsion Intravenous 1,512 ml @ 63 mls/hr TPN CONT IV Last administered on 07/06/19at 22:06; Start 07/06/19 at 22:00; Stop 07/07/19 at 21:59; Status DC Calcium Carbonate/ Glycine (Tums) 500 mg PRN AFTMEALHC PRN PO INDIGESTION; Start 07/06/19 at 17:45; Stop 08/31/19 at 10:25; Status DC Calcium Gluconate (Calcium Gluconate) 2,000 mg 1X ONCE IVP Last administered on 07/07/19at 02:19; Start 07/07/19 at 02:15; Stop 07/07/19 at 02:16; Status DC Calcium Chloride 3000 mg/Sodium Chloride 1,030 ml @ 50 mls/hr [id number] IV Last administered on 07/09/19at 02:17; Start 07/07/19 at 08:00; Stop 07/09/19 at 15:23; Status DC Lorazepam (Ativan Inj) 1 mg PRN Q4HRS PRN IVP ANXIETY / AGITATION, 2nd choic Last administered on 08/05/19at 03:51; Start 07/07/19 at 09:00; Stop 08/05/19 at 09:19; Status DC Sodium Chloride 1,000 ml @ 1,000 mls/hr Q1H PRN IV hypotension; Start 07/07/19 at 08:56; Stop 07/07/19 at 14:55; Status DC Albumin Human 200 ml @ 200 mls/hr 1X PRN PRN IV Hypotension; Start 07/07/19 at 09:00; Stop 07/07/19 at 14:59; Status DC Diphenhydramine HCl (Benadryl) 25 mg 1X PRN PRN IV ITCHING; Start 07/07/19 at 09:00; Stop 07/08/19 at 08:59; Status DC Diphenhydramine HCl (Benadryl) 25 mg 1X PRN PRN IV ITCHING; Start 07/07/19 at 09:00; Stop 07/08/19 at 08:59; Status DC Sodium Chloride 1,000 ml @ 400 mls/hr Q2H30M PRN IV PATENCY; Start 07/07/19 at 08:56; Stop 07/07/19 at 20:55; Status DC Info (PHARMACY MONITORING -- do not chart) 1 each PRN DAILY PRN MC SEE COMM ENTS; Start 07/07/19 at 09:00; Status UNV Info (PHARMACY MONITORING -- do not chart) 1 each PRN DAILY PRN MC SEE COMMENTS; Start 07/07/19 at 09:00; Stop 07/08/19 at 08:13; Status DC Digoxin (Lanoxin) 500 mcg 1X ONCE IV Last administered on 07/07/19at 10:04; Start 07/07/19 at 10:00; Stop 07/07/19 at 10:01; Status DC Digoxin (Lanoxin) 125 mcg 1X ONCE IV Last administered on 07/07/19at 17:10; Start 07/07/19 at 18:00; Stop 07/07/19 at 18:01; Status DC Magnesium Sulfate 100 ml @ 25 mls/hr 1X ONCE IV Last administered on 07/07/19at 12:48; Start 07/07/19 at 13:00; Stop 07/07/19 at 16:59; Status DC Sodium Chloride 90 meq/Magnesium Sulfate 10 meq/ Calcium Gluconate 20 meq/ Multivitamins 10 ml/Chromium/ Copper/Manganese/ Seleni/Zn 0.5 ml/ Total Parenteral Nutrition/Amino Acids/Dextrose/ Fat Emulsion Intravenous 1,512 ml @ 63 mls/hr TPN CONT IV Last administered on 07/07/19at 22:25; Start 07/07/19 at 22:00; Stop 07/08/19 at 21:59; Status DC Sodium Chloride 1,000 ml @ 1,000 mls/hr Q1H PRN IV hypotension; Start 07/08/19 at 08:05; Stop 07/08/19 at 14:04; Status DC Albumin Human 200 ml @ 200 mls/hr 1X ONCE IV Last administered on 07/08/19at 08:57; Start 07/08/19 at 08:15; Stop 07/08/19 at 09:14; Status DC Diphenhydramine HCl (Benadryl) 25 mg 1X PRN PRN IV ITCHING; Start 07/08/19 at 08:15; Stop 07/09/19 at 08:14; Status DC Diphenhydramine HCl (Benadryl) 25 mg 1X PRN PRN IV ITCHING; Start 07/08/19 at 08:15; Stop 07/09/19 at 08:14; Status DC Sodium Chloride 1,000 ml @ 400 mls/hr Q2H30M PRN IV PATENCY; Start 07/08/19 at 08:05; Stop 07/08/19 at 20:04; Status DC Info (PHARMACY MONITORING -- do not chart) 1 each PRN DAILY PRN MC SEE COMMENTS; Start 07/08/19 at 08:15; Stop 07/12/19 at 07:57; Status DC Sodium Chloride 90 meq/Potassium Chloride 15 meq/ Potassium Phosphate 10 mmol/ Magnesium Sulfate 10 meq/Calcium Gluconate 20 meq/ Multivitamins 10 ml/Chromium/ Copper/Manganese/ Seleni/Zn 0.5 ml/ Total Parenteral Nutrition/Amino Acids/Dextrose/ Fat Emulsion Intravenous 1,512 ml @ 63 mls/hr TPN CONT IV Last administered on 07/08/19at 21:01; Start 07/08/19 at 22:00; Stop 07/09/19 at 21:59; Status DC Potassium Chloride/Water 100 ml @ 100 mls/hr 1X ONCE IV Last administered on 07/08/19at 14:09; Start 07/08/19 at 14:00; Stop 07/08/19 at 14:59; Status DC Benzocaine (Hurricaine One) 1 spray 1X ONCE MM Last administered on 07/08/19at 16:38; Start 07/08/19 at 14:30; Stop 07/08/19 at 14:31; Status DC Lidocaine HCl (Glydo (Lidocaine) Jelly) 1 ramu 1X ONCE MM Last administered on 07/08/19at 16:38; Start 07/08/19 at 14:30; Stop 07/08/19 at 14:31; Status DC Linezolid/Dextrose 300 ml @ 300 mls/hr Q12HR IV Last administered on 07/14/19at 21:04; Start 07/08/19 at 20:00; Stop 07/15/19 at 07:50; Status DC Acetaminophen (Tylenol) 650 mg PRN Q6HRS PRN PO MILD PAIN / TEMP; Start 07/09/19 at 03:30; Stop 07/09/19 at 03:36; Status DC Acetaminophen (Tylenol) 650 mg PRN Q6HRS PRN PEG MILD PAIN / TEMP Last administered on 08/04/19at 19:56; Start 07/09/19 at 03:36; Stop 08/31/19 at 10:25; Status DC Sodium Chloride 1,000 ml @ 1,000 mls/hr Q1H PRN IV hypotension; Start 07/09/19 at 07:50; Stop 07/09/19 at 13:49; Status DC Albumin Human 200 ml @ 200 mls/hr 1X PRN PRN IV Hypotension; Start 07/09/19 at 08:00; Stop 07/09/19 at 13:59; Status DC Sodium Chloride (Normal Saline Flush) 10 ml 1X PRN PRN IV AP catheter pack; Start 07/09/19 at 08:00; Stop 07/10/19 at 07:59; Status DC Sodium Chloride (Normal Saline Flush) 10 ml 1X PRN PRN IV [employer] catheter pack; Start 07/09/19 at 08:00; Stop 07/10/19 at 07:59; Status DC Sodium Chloride 1,000 ml @ 400 mls/hr Q2H30M PRN IV PATENCY; Start 07/09/19 at 07:50; Stop 07/09/19 at 19:49; Status DC Info (PHARMACY MONITORING -- do not chart) 1 each PRN DAILY PRN MC SEE COMMENTS; Start 07/09/19 at 08:00; Status UNV Info (PHARMACY MONITORING -- do not chart) 1 each PRN DAILY PRN MC SEE COMMENTS; Start 07/09/19 at 08:00; Stop 07/11/19 at 08:25; Status DC Sodium Chloride 90 meq/Potassium Chloride 15 meq/ Potassium Phosphate 10 mmol/ Magnesium Sulfate 10 meq/Calcium Gluconate 20 meq/ Multivitamins 10 ml/Chromium/ Copper/Manganese/ Seleni/Zn 0.5 ml/ Total Parenteral Nutrition/Amino Acids/Dextrose/ Fat Emulsion Intravenous 1,512 ml @ 63 mls/hr TPN CONT IV Last administered on 07/09/19at 20:57; Start 07/09/19 at 22:00; Stop 07/10/19 at 21:59; Status DC Sodium Chloride 90 meq/Potassium Chloride 15 meq/ Potassium Phosphate 15 mmol/ Magnesium Sulfate 10 meq/Calcium Gluconate 20 meq/ Multivitamins 10 ml/Chromium/ Copper/Manganese/ Seleni/Zn 0.5 ml/ Total Parenteral Nutrition/Amino Acids/Dextrose/ Fat Emulsion Intravenous 1,512 ml @ 63 mls/hr TPN CONT IV ; Start 07/10/19 at 22:00; Stop 07/10/19 at 14:16; Status DC Sodium Chloride 90 meq/Potassium Chloride 15 meq/ Potassium Phosphate 15 mmol/ Magnesium Sulfate 10 meq/Calcium Gluconate 20 meq/ Multivitamins 10 ml/Chromium/ Copper/Manganese/ Seleni/Zn 0.5 ml/ Total Parenteral Nutrition/Amino Acids/Dextrose/ Fat Emulsion Intravenous 1,200 ml @ 50 mls/hr TPN CONT IV ; Start 07/10/19 at 22:00; Stop 07/10/19 at 14:17; Status DC Sodium Chloride 90 meq/Potassium Chloride 15 meq/ Potassium Phosphate 10 mmol/ Magnesium Sulfate 10 meq/Calcium Gluconate 20 meq/ Multivitamins 10 ml/Chromium/ Copper/Manganese/ Seleni/Zn 0.5 ml/ Total Parenteral Nutrition/Amino Acids/Dextrose/ Fat Emulsion Intravenous 1,200 ml @ 50 mls/hr TPN CONT IV Last administered on 07/10/19at 23:29; Start 07/10/19 at 22:00; Stop 07/11/19 at 21:59; Status DC Sodium Chloride 1,000 ml @ 1,000 mls/hr Q1H PRN IV hypotension; Start 07/11/19 at 07:28; Stop 07/11/19 at 13:27; Status DC Albumin Human 200 ml @ 200 mls/hr 1X ONCE IV Last administered on 07/11/19at 08:51; Start 07/11/19 at 07:30; Stop 07/11/19 at 08:29; Status DC Diphenhydramine HCl (Benadryl) 25 mg 1X PRN PRN IV ITCHING; Start 07/11/19 at 07:30; Stop 07/12/19 at 07:29; Status DC Diphenhydramine HCl (Benadryl) 25 mg 1X PRN PRN IV ITCHING; Start 07/11/19 at 07:30; Stop 07/12/19 at 07:29; Status DC Sodium Chloride 1,000 ml @ 400 mls/hr Q2H30M PRN IV PATENCY; Start 07/11/19 at 07:28; Stop 07/11/19 at 19:27; Status DC Info (PHARMACY MONITORING -- do not chart) 1 each PRN DAILY PRN MC SEE COMMENTS; Start 07/11/19 at 07:30; Stop 07/22/19 at 13:01; Status DC Metronidazole 100 ml @ 100 mls/hr Q6HRS IV Last administered on 07/27/19at 06:26; Start 07/11/19 at 08:30; Stop 07/27/19 at 09:58; Status DC Micafungin Sodium 100 mg/Dextrose 100 ml @ 100 mls/hr Q24H IV Last administered on 08/18/19at 08:18; Start 07/11/19 at 09:00; Stop 08/18/19 at 20:58; Status DC Propofol 0 ml @ As Directed STK-MED ONCE IV ; Start 07/11/19 at 07:53; Stop 07/11/19 at 07:53; Status DC Etomidate (Amidate) 20 mg STK-MED ONCE IV ; Start 07/11/19 at 07:53; Stop 07/11/19 at 07:54; Status DC Midazolam HCl (Versed) 5 mg STK-MED ONCE .ROUTE ; Start 07/11/19 at 07:57; Stop 07/11/19 at 07:57; Status DC Fentanyl Citrate 30 ml @ 0 mls/hr CONT PRN IV SEE PROTOCOL Last administered on 08/05/19at 06:12; Start 07/11/19 at 08:15; Stop 08/05/19 at 09:19; Status DC Artificial Tears (Artificial Tears) 1 drop PRN Q1HR PRN OU DRY EYE, 1st choice; Start 07/11/19 at 08:15; Stop 08/17/19 at 05:31; Status DC Midazolam HCl 50 mg/Sodium Chloride 50 ml @ 0 mls/hr CONT PRN IV SEE PROTOCOL Last administered on 07/14/19at 22:39; Start 07/11/19 at 08:15; Stop 07/16/19 at 15:59; Status DC Etomidate (Amidate) 8 mg 1X ONCE IV Last administered on 07/11/19at 08:33; Start 07/11/19 at 08:30; Stop 07/11/19 at 08:31; Status DC Succinylcholine Chloride (Anectine) 120 mg 1X ONCE IV Last administered on 07/11/19at 08:34; Start 07/11/19 at 08:30; Stop 07/11/19 at 08:31; Status DC Midazolam HCl (Versed) 5 mg 1X ONCE IV ; Start 07/11/19 at 08:30; Stop 07/11/19 at 08:31; Status DC Potassium Chloride 15 meq/ Bicarbonate Dialysis Soln w/ out KCl 5,007.5 ml @ 1,000 mls/ hr Q5H1M IV Last administered on 07/12/19at 11:11; Start 07/11/19 at 12:00; Stop 07/12/19 at 11:15; Status DC Potassium Chloride 15 meq/ Bicarbonate Dialysis Soln w/ out KCl 5,007.5 ml @ 1,000 mls/ hr Q5H1M IV Last administered on 07/12/19at 11:12; Start 07/11/19 at 12:00; Stop 07/12/19 at 11:17; Status DC Potassium Chloride 15 meq/ Bicarbonate Dialysis Soln w/ out KCl 5,007.5 ml @ 1,000 mls/ hr Q5H1M IV Last administered on 07/12/19at 11:11; Start 07/11/19 at 12:00; Stop 07/12/19 at 11:19; Status DC Sodium Chloride 90 meq/Potassium Chloride 15 meq/ Potassium Phosphate 10 mmol/ Magnesium Sulfate 10 meq/Calcium Gluconate 20 meq/ Multivitamins 10 ml/Chromium/ Copper/Manganese/ Seleni/Zn 0.5 ml/ Total Parenteral Nutrition/Amino Acids/Dextrose/ Fat Emulsion Intravenous 1,400 ml @ 58.333 mls/ hr TPN CONT IV Last administered on 07/11/19at 21:42; Start 07/11/19 at 22:00; Stop 07/12/19 at 21:59; Status DC Heparin Sodium (Porcine) (Heparin Sodium) 5,000 unit Q8HRS SQ Last administered on 07/16/19at 05:55; Start 07/11/19 at 15:00; Stop 07/16/19 at 13:28; Status DC Meropenem 500 mg/ Sodium Chloride 50 ml @ 100 mls/hr Q6HRS IV Last administered on 07/13/19at 06:00; Start 07/12/19 at 09:00; Stop 07/13/19 at 07:29; Status DC Potassium Phosphate 20 mmol/ Sodium Chloride 106.6667 ml @ 51.667 m... 1X ONCE IV Last administered on 07/12/19at 11:22; Start 07/12/19 at 10:15; Stop 07/12/19 at 12:18; Status DC Acetaminophen (Tylenol Supp) 650 mg PRN Q6HRS PRN [place] MILD PAIN / TEMP > 100.3'F Last administered on 09/23/19at 23:37; Start 07/12/19 at 10:30 Potassium Chloride/Water 100 ml @ 100 mls/hr Q1H IV Last administered on 07/12/19at 12:12; Start 07/12/19 at 11:00; Stop 07/12/19 at 12:59; Status DC Potassium Chloride 20 meq/ Bicarbonate Dialysis Soln w/ out KCl 5,010 ml @ 1,000 mls/hr Q5H1M IV Last administered on 07/13/19at 08:48; Start 07/12/19 at 12:00; Stop 07/13/19 at 13:03; Status DC Potassium Chloride 20 meq/ Bicarbonate Dialysis Soln w/ out KCl 5,010 ml @ 1,000 mls/hr Q5H1M IV Last administered on 07/17/19at 14:52; Start 07/12/19 at 11:30; Stop 07/17/19 at 19:59; Status DC Potassium Chloride 20 meq/ Bicarbonate Dialysis Soln w/ out KCl 5,010 ml @ 1,000 mls/hr Q5H1M IV Last administered on 07/17/19at 14:53; Start 07/12/19 at 1 1:30; Stop 07/17/19 at 19:59; Status DC Sodium Chloride 90 meq/Potassium Chloride 15 meq/ Potassium Phosphate 15 mmol/ Magnesium Sulfate 10 meq/Calcium Gluconate 15 meq/ Multivitamins 10 ml/Chromium/ Copper/Manganese/ Seleni/Zn 0.5 ml/ Total Parenteral Nutrition/Amino Acids/Dextrose/ Fat Emulsion Intravenous 1,400 ml @ 58.333 mls/ hr TPN CONT IV Last administered on 07/12/19at 22:17; Start 07/12/19 at 22:00; Stop 07/13/19 at 21:59; Status DC Cefepime HCl (Maxipime) 2 gm Q12HR IVP Last administered on 07/26/19at 20:56; Start 07/13/19 at 09:00; Stop 07/27/19 at 09:58; Status DC Daptomycin 500 mg/ Sodium Chloride 50 ml @ 100 mls/hr Q48H IV Last administered on 07/29/19at 09:57; Start 07/13/19 at 08:30; Stop 07/29/19 at 10:07; Status DC Lidocaine HCl (Buffered Lidocaine 1%) 3 ml 1X ONCE INJ Last administered on 07/13/19at 10:27; Start 07/13/19 at 10:30; Stop 07/13/19 at 10:31; Status DC Potassium Phosphate 20 mmol/ Sodium Chloride 106.6667 ml @ 51.667 m... 1X ONCE IV Last administered on 07/13/19at 12:51; Start 07/13/19 at 13:00; Stop 07/13/19 at 15:03; Status DC Sodium Chloride 90 meq/Potassium Chloride 15 meq/ Potassium Phosphate 18 mmol/ Magnesium Sulfate 8 meq/Calcium Gluconate 15 meq/ Multivitamins 10 ml/Chromium/ Copper/Manganese/ Seleni/Zn 0.5 ml/ Total Parenteral Nutrition/Amino Acids/Dextrose/ Fat Emulsion Intravenous 1,400 ml @ 58.333 mls/ hr TPN CONT IV Last administered on 07/13/19at 22:16; Start 07/13/19 at 22:00; Stop 07/14/19 at 21:59; Status DC Potassium Chloride 20 meq/ Bicarbonate Dialysis Soln w/ out KCl 5,010 ml @ 1,000 mls/hr Q5H1M IV Last administered on 07/17/19at 14:54; Start 07/13/19 at 16:00; Stop 07/17/19 at 19:59; Status DC Multi-Ingred Cream/Lotion/Oil/ Oint (Artificial Tears Eye Ointment) 1 ramu PRN Q1HR PRN OU DRY EYE, 2nd choice Last administered on 08/01/19at 08:19; Start 07/13/19 at 17:30; Stop 09/21/19 at 14:39; Status DC Sodium Chloride 90 meq/Potassium Chloride 15 meq/ Potassium Phosphate 18 mmol/ Magnesium Sulfate 8 meq/Calcium Gluconate 15 meq/ Multivitamins 10 ml/Chromium/ Copper/Manganese/ Seleni/Zn 0.5 ml/ Total Parenteral Nutrition/Amino Acids/Dextrose/ Fat Emulsion Intravenous 1,400 ml @ 58.333 mls/ hr TPN CONT IV Last administered on 07/14/19at 22:00; Start 07/14/19 at 22:00; Stop 07/15/19 at 21:59; Status DC Albumin Human 500 ml @ 125 mls/hr 1X ONCE IV ; Start 07/14/19 at 14:15; Stop 07/14/19 at 18:14; Status DC Sodium Chloride 90 meq/Potassium Chloride 15 meq/ Potassium Phosphate 18 mmol/ Magnesium Sulfate 8 meq/Calcium Gluconate 15 meq/ Multivitamins 10 ml/Chromium/ Copper/Manganese/ Seleni/Zn 0.5 ml/ Insulin Human Regular 10 unit/ Total Parenteral Nutrition/Amino Acids/Dextrose/ Fat Emulsion Intravenous 1,400 ml @ 58.333 mls/ hr TPN CONT IV Last administered on 07/15/19at 21:43; Start 07/15/19 at 22:00; Stop 07/16/19 at 21:59; Status DC Lidocaine HCl (Buffered Lidocaine 1%) 3 ml STK-MED ONCE .ROUTE ; Start 07/13/19 at 10:00; Stop 07/15/19 at 13:57; Status DC Midazolam HCl 100 mg/Sodium Chloride 100 ml @ 7 mls/hr CONT PRN IV SEE PROTOCOL Last administered on 07/27/19at 15:35; Start 07/16/19 at 16:00; Stop 09/21/19 at 14:38; Status DC Sodium Chloride 90 meq/Potassium Chloride 15 meq/ Potassium Phosphate 18 mmol/ Magnesium Sulfate 8 meq/Calcium Gluconate 15 meq/ Multivitamins 10 ml/Chromium/ Copper/Manganese/ Seleni/Zn 0.5 ml/ Insulin Human Regular 15 unit/ Total Parenteral Nutrition/Amino Acids/Dextrose/ Fat Emulsion Intravenous 1,400 ml @ 58.333 mls/ hr TPN CONT IV Last administered on 07/16/19at 20:34; Start 07/16/19 at 22:00; Stop 07/17/19 at 21:59; Status DC Info (Icu Electrolyte Protocol) 1 ea CONT PRN PRN MC PER PROTOCOL; Start 07/17/19 at 13:15 Sodium Chloride 90 meq/Potassium Chloride 15 meq/ Potassium Phosphate 18 mmol/ Magnesium Sulfate 8 meq/Calcium Gluconate 15 meq/ Multivitamins 10 ml/Chromium/ Copper/Manganese/ Seleni/Zn 0.5 ml/ Insulin Human Regular 15 unit/ Total Parenteral Nutrition/Amino Acids/Dextrose/ Fat Emulsion Intravenous 1,400 ml @ 58.333 mls/ hr TPN CONT IV Last administered on 07/17/19at 22:05; Start 07/17/19 at 22:00; Stop 07/18/19 at 21:59; Status DC Potassium Chloride 15 meq/ Bicarbonate Dialysis Soln w/ out KCl 5,007.5 ml @ 1,000 mls/ hr Q5H1M IV Last administered on 07/20/19at 18:14; Start 07/17/19 at 20:00; Stop 07/21/19 at 13:08; Status DC Potassium Chloride 15 meq/ Bicarbonate Dialysis Soln w/ out KCl 5,007.5 ml @ 1,000 mls/ hr Q5H1M IV Last administered on 07/20/19at 18:14; Start 07/17/19 at 20:00; Stop 07/21/19 at 13:08; Status DC Potassium Chloride 15 meq/ Bicarbonate Dialysis Soln w/ out KCl 5,007.5 ml @ 1,000 mls/ hr Q5H1M IV Last administered on 07/20/19at 18:14; Start 07/17/19 at 20:00; Stop 07/21/19 at 13:08; Status DC Iohexol (Omnipaque 240 Mg/ml) 30 ml 1X ONCE PO Last administered on 07/18/19at 11:30; Start 07/18/19 at 11:30; Stop 07/18/19 at 11:33; Status DC Info (CONTRAST GIVEN -- Rx MONITORING) 1 each PRN DAILY PRN MC SEE COMMENTS; Start 07/18/19 at 11:45; Stop 07/20/19 at 11:44; Status DC Sodium Chloride 90 meq/Potassium Chloride 15 meq/ Potassium Phosphate 18 mmol/ Magnesium Sulfate 8 meq/Calcium Gluconate 15 meq/ Multivitamins 10 ml/Chromium/ Copper/Manganese/ Seleni/Zn 0.5 ml/ Insulin Human Regular 15 unit/ Total Parenteral Nutrition/Amino Acids/Dextrose/ Fat Emulsion Intravenous 1,400 ml @ 58.333 mls/ hr TPN CONT IV Last administered on 07/18/19at 21:47; Start 07/18/19 at 22:00; Stop 07/19/19 at 21:59; Status DC Sodium Chloride 90 meq/Potassium Chloride 15 meq/ Potassium Phosphate 18 mmol/ Magnesium Sulfate 8 meq/Calcium Gluconate 15 meq/ Multivitamins 10 ml/Chromium/ Copper/Manganese/ Seleni/Zn 0.5 ml/ Insulin Human Regular 20 unit/ Total Parenteral Nutrition/Amino Acids/Dextrose/ Fat Emulsion Intravenous 1,400 ml @ 58.333 mls/ hr TPN CONT IV Last administered on 07/19/19at 21:36; Start 07/19/19 at 22:00; Stop 07/20/19 at 21:59; Status DC Alteplase, Recombinant (Cathflo For Central Catheter Clearance) 1 mg 1X ONCE INT CAT Last administered on 07/19/19at 20:03; Start 07/19/19 at 19:30; Stop 07/19/19 at 19:46; Status DC Alteplase, Recombinant (Cathflo For Central Catheter Clearance) 1 mg 1X ONCE INT CAT Last administered on 07/19/19at 22:05; Start 07/19/19 at 22:00; Stop 07/19/19 at 22:01; Status DC Sodium Chloride 90 meq/Potassium Chloride 15 meq/ Potassium Phosphate 18 mmol/ Magnesium Sulfate 8 meq/Calcium Gluconate 15 meq/ Multivitamins 10 ml/Chromium/ Copper/Manganese/ Seleni/Zn 0.5 ml/ Insulin Human Regular 20 unit/ Total Parenteral Nutrition/Amino Acids/Dextrose/ Fat Emulsion Intravenous 1,400 ml @ 58.333 mls/ hr TPN CONT IV Last administered on 07/20/19at 21:30; Start 07/20/19 at 22:00; Stop 07/21/19 at 21:59; Status DC Dexmedetomidine HCl 400 mcg/ Sodium Chloride 100 ml @ 0 mls/hr CONT PRN IV ANXIETY / AGITATION Last administered on 09/17/19at 12:57; Start 07/21/19 at 08:15; Stop 09/17/19 at 18:31; Status DC Sodium Chloride 500 ml @ 500 mls/hr 1X PRN PRN IV ELEVATED BP, SEE COMMENTS; Start 07/21/19 at 08:15 Atropine Sulfate (ATROPINE 0.5mg SYRINGE) 0.5 mg PRN Q5MIN PRN IV SEE COMMENTS; Start 07/21/19 at 08:15 Furosemide (Lasix) 20 mg 1X ONCE IVP Last administered on 07/21/19at 08:19; Start 07/21/19 at 08:15; Stop 07/21/19 at 08:16; Status DC Lidocaine HCl (Buffered Lidocaine 1%) 3 ml STK-MED ONCE .ROUTE ; Start 07/21/19 at 08:39; Stop 07/21/19 at 08:39; Status DC Lidocaine HCl (Buffered Lidocaine 1%) 6 ml 1X ONCE INJ Last administered on 07/21/19at 09:05; Start 07/21/19 at 09:00; Stop 07/21/19 at 09:06; Status DC Sodium Chloride 90 meq/Potassium Chloride 15 meq/ Potassium Phosphate 18 mmol/ Magnesium Sulfate 8 meq/Calcium Gluconate 15 meq/ Multivitamins 10 ml/Chromium/ Copper/Manganese/ Seleni/Zn 0.5 ml/ Insulin Human Regular 20 unit/ Total Parenteral Nutrition/Amino Acids/Dextrose/ Fat Emulsion Intravenous 1,400 ml @ 58.333 mls/ hr TPN CONT IV Last administered on 07/21/19at 22:45; Start 07/21/19 at 22:00; Stop 07/22/19 at 21:59; Status DC Sodium Chloride 1,000 ml @ 1,000 mls/hr Q1H PRN IV hypotension; Start 07/22/19 at 07:30; Stop 07/22/19 at 13:29; Status DC Albumin Human 200 ml @ 200 mls/hr 1X PRN PRN IV Hypotension Last administered on 07/22/19at 09:36; Start 07/22/19 at 07:30; Stop 07/22/19 at 13:29; Status DC Sodium Chloride (Normal Saline Flush) 10 ml 1X PRN PRN IV AP catheter pack; Start 07/22/19 at 07:30; Stop 07/22/19 at 21:29; Status DC Sodium Chloride (Normal Saline Flush) 10 ml 1X PRN PRN IV [employer] catheter pack; Start 07/22/19 at 07:30; Stop 07/23/19 at 07:29; Status DC Sodium Chloride 1,000 ml @ 400 mls/hr Q2H30M PRN IV PATENCY; Start 07/22/19 at 07:30; Stop 07/22/19 at 19:29; Status DC Info (PHARMACY MONITORING -- do not chart) 1 each PRN DAILY PRN MC SEE COMMENTS; Start 07/22/19 at 07:30; Stop 07/22/19 at 13:02; Status DC Info (PHARMACY MONITORING -- do not chart) 1 each PRN DAILY PRN MC SEE COMMENTS; Start 07/22/19 at 07:30; Stop 07/24/19 at 12:45; Status DC Sodium Chloride 90 meq/Potassium Chloride 15 meq/ Potassium Phosphate 10 mmol/ Magnesium Sulfate 8 meq/Calcium Gluconate 15 meq/ Multivitamins 10 ml/Chromium/ Copper/Manganese/ Seleni/Zn 0.5 ml/ Insulin Human Regular 25 unit/ Total Parenteral Nutrition/Amino Acids/Dextrose/ Fat Emulsion Intravenous 1,400 ml @ 58.333 mls/ hr TPN CONT IV Last administered on 07/22/19at 22:19; Start 07/22/19 at 22:00; Stop 07/23/19 at 21:59; Status DC Heparin Sodium (Porcine) (Heparin Sodium) 5,000 unit Q12HR SQ Last administered on 08/14/19at 08:59; Start 07/22/19 at 21:00; Stop 08/14/19 at 10:05; Status DC Ondansetron HCl (Zofran) 4 mg PRN Q6HRS PRN IV NAUSEA/VOMITING; Start 07/25/19 at 07:00; Stop 07/26/19 at 06:59; Status DC Fentanyl Citrate (Fentanyl 2ml Vial) 25 mcg PRN Q5MIN PRN IV MILD PAIN 1-3; Start 07/25/19 at 07:00; Stop 07/26/19 at 06:59; Status DC Fentanyl Citrate (Fentanyl 2ml Vial) 50 mcg PRN Q5MIN PRN IV MODERATE TO SEVERE PAIN; Start 07/25/19 at 07:00; Stop 07/26/19 at 06:59; Status DC Ringer's Solution 1,000 ml @ 30 mls/hr Q24H IV ; Start 07/25/19 at 07:00; Stop 07/25/19 at 18:59; Status DC Lidocaine HCl (Xylocaine-Mpf 1% 2ml Vial) 2 ml PRN 1X PRN ID PRIOR TO IV START; Start 07/25/19 at 07:00; Stop 07/26/19 at 06:59; Status DC Prochlorperazine Edisylate (Compazine) 5 mg PACU PRN PRN IV NAUSEA, MRX1; Start 07/25/19 at 07:00; Stop 07/26/19 at 06:59; Status DC Sodium Chloride 1,000 ml @ 1,000 mls/hr Q1H PRN IV hypotension; Start 07/23/19 at 09:10; Stop 07/23/19 at 15:09; Status DC Albumin Human 200 ml @ 200 mls/hr 1X PRN PRN IV Hypotension Last administered on 07/23/19at 10:10; Start 07/23/19 at 09:15; Stop 07/23/19 at 15:14; Status DC Sodium Chloride 1,000 ml @ 400 mls/hr Q2H30M PRN IV PATENCY; Start 07/23/19 at 09:10; Stop 07/23/19 at 21:09; Status DC Info (PHARMACY MONITORING -- do not chart) 1 each PRN DAILY PRN MC SEE COMMENTS; Start 07/23/19 at 09:15; Stop 07/24/19 at 12:45; Status DC Info (PHARMACY MONITORING -- do not chart) 1 each PRN DAILY PRN MC SEE COMMENT S; Start 07/23/19 at 09:15; Stop 07/24/19 at 12:45; Status DC Sodium Chloride 90 meq/Potassium Chloride 15 meq/ Potassium Phosphate 10 mmol/ Magnesium Sulfate 8 meq/Calcium Gluconate 15 meq/ Multivitamins 10 ml/Chromium/ Copper/Manganese/ Seleni/Zn 0.5 ml/ Insulin Human Regular 25 unit/ Total Parenteral Nutrition/Amino Acids/Dextrose/ Fat Emulsion Intravenous 1,400 ml @ 58.333 mls/ hr TPN CONT IV Last administered on 07/23/19at 22:10; Start 07/23/19 at 22:00; Stop 07/24/19 at 21:59; Status DC Magnesium Sulfate 50 ml @ 25 mls/hr PRN DAILY PRN IV for Mag < 1.7 on am labs Last administered on 08/08/19at 17:27; Start 07/24/19 at 09:15 Sodium Chloride 90 meq/Potassium Chloride 15 meq/ Potassium Phosphate 10 mmol/ Magnesium Sulfate 8 meq/Calcium Gluconate 15 meq/ Multivitamins 10 ml/Chromium/ Copper/Manganese/ Seleni/Zn 0.5 ml/ Insulin Human Regular 25 unit/ Total Parenteral Nutrition/Amino Acids/Dextrose/ Fat Emulsion Intravenous 1,400 ml @ 58.333 mls/ hr TPN CONT IV Last administered on 07/24/19at 21:20; Start 07/24/19 at 22:00; Stop 07/25/19 at 21:59; Status DC Sodium Chloride 1,000 ml @ 1,000 mls/hr Q1H PRN IV hypotension; Start 07/24/19 at 12:23; Stop 07/24/19 at 18:22; Status DC Albumin Human 200 ml @ 200 mls/hr 1X ONCE IV Last administered on 07/24/19at 13:34; Start 07/24/19 at 12:30; Stop 07/24/19 at 13:29; Status DC Diphenhydramine HCl (Benadryl) 25 mg 1X PRN PRN IV ITCHING; Start 07/24/19 at 12:30; Stop 07/25/19 at 12:29; Status DC Diphenhydramine HCl (Benadryl) 25 mg 1X PRN PRN IV ITCHING; Start 07/24/19 at 12:30; Stop 07/25/19 at 12:29; Status DC Info (PHARMACY MONITORING -- do not chart) 1 each PRN DAILY PRN MC SEE COMMENTS; Start 07/24/19 at 12:30; Status Cancel Bupivacaine HCl/ Epinephrine Bitart (Sensorcain-Epi 0.5%-1:[id number] Mpf) 30 ml STK-MED ONCE .ROUTE Last administered on 07/25/19at 11:44; Start 07/25/19 at 11:00; Stop 07/25/19 at 11:01; Status DC Cellulose (Surgicel Fibrillar 1x2) 1 each STK-MED ONCE .ROUTE ; Start 07/25/19 at 11:00; Stop 07/25/19 at 11:01; Status DC Sodium Chloride 90 meq/Potassium Chloride 15 meq/ Potassium Phosphate 10 mmol/ Magnesium Sulfate 12 meq/Calcium Gluconate 15 meq/ Multivitamins 10 ml/Chromium/ Copper/Manganese/ Seleni/Zn 0.5 ml/ Insulin Human Regular 25 unit/ Total Parenteral Nutrition/Amino Acids/Dextrose/ Fat Emulsion Intravenous 1,400 ml @ 58.333 mls/ hr TPN CONT IV Last administered on 07/25/19at 22:24; Start 07/25/19 at 22:00; Stop 07/26/19 at 21:59; Status DC Propofol 20 ml @ As Directed STK-MED ONCE IV ; Start 07/25/19 at 11:07; Stop 07/25/19 at 11:07; Status DC Cellulose (Surgicel Hemostat 4x8) 1 each STK-MED ONCE .ROUTE Last administered on 07/25/19at 11:44; Start 07/25/19 at 11:55; Stop 07/25/19 at 11:56; Status DC Sevoflurane (Ultane) 60 ml STK-MED ONCE IH ; Start 07/25/19 at 12:46; Stop 07/25/19 at 12:46; Status DC Sodium Chloride 1,000 ml @ 1,000 mls/hr Q1H PRN IV hypotension; Start 07/25/19 at 13:51; Stop 07/25/19 at 19:50; Status DC Albumin Human 200 ml @ 200 mls/hr 1X PRN PRN IV Hypotension Last administered on 07/25/19at 14:51; Start 07/25/19 at 14:00; Stop 07/25/19 at 19:59; Status DC Diphenhydramine HCl (Benadryl) 25 mg 1X PRN PRN IV ITCHING; Start 07/25/19 at 14:00; Stop 07/26/19 at 13:59; Status DC Diphenhydramine HCl (Benadryl) 25 mg 1X PRN PRN IV ITCHING; Start 07/25/19 at 14:00; Stop 07/26/19 at 13:59; Status DC Sodium Chloride 1,000 ml @ 400 mls/hr Q2H30M PRN IV PATENCY; Start 07/25/19 at 13:51; Stop 07/26/19 at 01:50; Status DC Info (PHARMACY MONITORING -- do not chart) 1 each PRN DAILY PRN MC SEE COMMENTS; Start 07/25/19 at 14:00; Stop 07/28/19 at 08:16; Status DC Heparin Sodium (Porcine) (Hep Lock Adult) 500 unit STK-MED ONCE IVP ; Start 07/26/19 at 09:29; Stop 07/26/19 at 09:30; Status DC Sodium Chloride 1,000 ml @ 1,000 mls/hr Q1H PRN IV hypotension; Start 07/26/19 at 10:43; Stop 07/26/19 at 16:42; Status DC Sodium Chloride 1,000 ml @ 400 mls/hr Q2H30M PRN IV PATENCY; Start 07/26/19 at 10:43; Stop 07/26/19 at 22:42; Status DC Info (PHARMACY MONITORING -- do not chart) 1 each PRN DAILY PRN MC SEE COMMENTS; Start 07/26/19 at 10:45; Status UNV Info (PHARMACY MONITORING -- do not chart) 1 each PRN DAILY PRN MC SEE COMMENTS; Start 07/26/19 at 10:45; Status UNV Sodium Chloride 90 meq/Potassium Chloride 15 meq/ Magnesium Sulfate 12 meq/Calcium Gluconate 15 meq/ Multivitamins 10 ml/Chromium/ Copper/Manganese/ Seleni/Zn 0.5 ml/ Insulin Human Regular 25 unit/ Total Parenteral Nutrition/Amino Acids/Dextrose/ Fat Emulsion Intravenous 1,400 ml @ 58.333 mls/ hr TPN CONT IV Last administered on 07/26/19at 22:13; Start 07/26/19 at 22:00; Stop 07/27/19 at 21:59; Status DC Sodium Chloride 1,000 ml @ 1,000 mls/hr Q1H PRN IV hypotension; Start 07/27/19 at 07:50; Stop 07/27/19 at 13:49; Status DC Albumin Human 200 ml @ 200 mls/hr 1X ONCE IV ; Start 07/27/19 at 08:00; Stop 07/27/19 at 08:53; Status DC Diphenhydramine HCl (Benadryl) 25 mg 1X PRN PRN IV ITCHING; Start 07/27/19 at 08:00; Stop 07/28/19 at 07:59; Status DC Diphenhydramine HCl (Benadryl) 25 mg 1X PRN PRN IV ITCHING; Start 07/27/19 at 08:00; Stop 07/28/19 at 07:59; Status DC Info (PHARMACY MONITORING -- do not chart) 1 each PRN DAILY PRN MC SEE COMMENTS; Start 07/27/19 at 08:00; Stop 07/28/19 at 08:16; Status DC Albumin Human 50 ml @ 50 mls/hr 1X ONCE IV ; Start 07/27/19 at 08:53; Stop 07/27/19 at 08:56; Status DC Albumin Human 200 ml @ 50 mls/hr PRN 1X PRN IV HYPOTENSION Last administered on 08/02/19at 11:54; Start 07/27/19 at 09:00; Stop 09/08/19 at 11:14; Status DC Meropenem 500 mg/ Sodium Chloride 50 ml @ 100 mls/hr Q12H IV Last administered on 08/16/19at 10:45; Start 07/27/19 at 10:00; Stop 08/16/19 at 12:37; Status DC Sodium Chloride 90 meq/Magnesium Sulfate 12 meq/ Calcium Gluconate 15 meq/ Multivitamins 10 ml/Chromium/ Copper/Manganese/ Seleni/Zn 0.5 ml/ Insulin Human Regular 25 unit/ Total Parenteral Nutrition/Amino Acids/Dextrose/ Fat Emulsion Intravenous 1,400 ml @ 58.333 mls/ hr TPN CONT IV Last administered on 07/27/19at 21:41; Start 07/27/19 at 22:00; Stop 07/28/19 at 21:59; Status DC Sodium Chloride 1,000 ml @ 1,000 mls/hr Q1H PRN IV hypotension; Start 07/28/19 at 07:58; Stop 07/28/19 at 13:57; Status DC Albumin Human 200 ml @ 200 mls/hr 1X PRN PRN IV Hypotension Last administered on 07/28/19at 09:30; Start 07/28/19 at 08:00; Stop 07/28/19 at 13:59; Status DC Sodium Chloride 1,000 ml @ 400 mls/hr Q2H30M PRN IV PATENCY; Start 07/28/19 at 07:58; Stop 07/28/19 at 19:57; Status DC Info (PHARMACY MONITORING -- do not chart) 1 each PRN DAILY PRN MC SEE COMMENTS; Start 07/28/19 at 08:00; Status Cancel Info (PHARMACY MONITORING -- do not chart) 1 each PRN DAILY PRN MC SEE COMMENTS; Start 07/28/19 at 08:15; Status UNV Sodium Chloride 90 meq/Potassium Phosphate 5 mmol/ Magnesium Sulfate 12 meq/Calcium Gluconate 15 meq/ Multivitamins 10 ml/Chromium/ Copper/Manganese/ Seleni/Zn 0.5 ml/ Insulin Human Regular 30 unit/ Total Parenteral Nutrition/Amino Acids/Dextrose/ Fat Emulsion Intravenous 1,400 ml @ 58.333 mls/ hr TPN CONT IV Last administered on 07/28/19at 22:08; Start 07/28/19 at 22:00; Stop 07/29/19 at 21:59; Status DC Linezolid/Dextrose 300 ml @ 300 mls/hr Q12HR IV Last administered on 08/08/19at 20:40; Start 07/29/19 at 11:00; Stop 08/09/19 at 08:10; Status DC Sodium Chloride 90 meq/Potassium Phosphate 15 mmol/ Magnesium Sulfate 12 meq/Ca lcium Gluconate 15 meq/ Multivitamins 10 ml/Chromium/ Copper/Manganese/ Seleni/Zn 0.5 ml/ Insulin Human Regular 30 unit/ Total Parenteral Nutrition/Amino Acids/Dextrose/ Fat Emulsion Intravenous 1,400 ml @ 58.333 mls/ hr TPN CONT IV Last administered on 07/29/19at 21:49; Start 07/29/19 at 22:00; Stop 07/30/19 at 21:59; Status DC Sodium Chloride 90 meq/Potassium Phosphate 15 mmol/ Magnesium Sulfate 12 meq/Calcium Gluconate 15 meq/ Multivitamins 10 ml/Chromium/ Copper/Manganese/ Seleni/Zn 0.5 ml/ Insulin Human Regular 40 unit/ Total Parenteral Nutrition/Amino Acids/Dextrose/ Fat Emulsion Intravenous 1,400 ml @ 58.333 mls/ hr TPN CONT IV Last administered on 07/30/19at 21:21; Start 07/30/19 at 22:00; Stop 07/31/19 at 21:59; Status DC Sodium Chloride 1,000 ml @ 1,000 mls/hr Q1H PRN IV hypotension; Start 07/30/19 at 13:26; Stop 07/30/19 at 19:25; Status DC Albumin Human 200 ml @ 200 mls/hr 1X PRN PRN IV Hypotension Last administered on 07/30/19at 15:00; Start 07/30/19 at 13:30; Stop 07/30/19 at 19:29; Status DC Sodium Chloride (Normal Saline Flush) 10 ml 1X PRN PRN IV AP catheter pack; Start 07/30/19 at 13:30; Stop 07/31/19 at 13:29; Status DC Sodium Chloride (Normal Saline Flush) 10 ml 1X PRN PRN IV [employer] catheter pack; Start 07/30/19 at 13:30; Stop 07/31/19 at 13:29; Status DC Sodium Chloride 1,000 ml @ 400 mls/hr Q2H30M PRN IV PATENCY; Start 07/30/19 at 13:26; Stop 07/31/19 at 01:25; Status DC Info (PHARMACY MONITORING -- do not chart) 1 each PRN DAILY PRN MC SEE COMMENTS; Start 07/30/19 at 13:30; Stop 07/30/19 at 13:33; Status DC Info (PHARMACY MONITORING -- do not chart) 1 each PRN DAILY PRN MC SEE COMMENTS; Start 07/30/19 at 13:30; Stop 07/30/19 at 13:34; Status DC Sodium Chloride 90 meq/Potassium Phosphate 19 mmol/ Magnesium Sulfate 12 meq/Zachariah cium Gluconate 15 meq/ Multivitamins 10 ml/Chromium/ Copper/Manganese/ Seleni/Zn 0.5 ml/ Insulin Human Regular 40 unit/ Total Parenteral Nutrition/Amino Acids/Dextrose/ Fat Emulsion Intravenous 1,400 ml @ 58.333 mls/ hr TPN CONT IV Last administered on 07/31/19at 21:54; Start 07/31/19 at 22:00; Stop 08/01/19 at 21:59; Status DC Sodium Chloride 1,000 ml @ 1,000 mls/hr Q1H PRN IV hypotension; Start 08/01/19 at 09:35; Stop 08/01/19 at 15:34; Status DC Albumin Human 200 ml @ 200 mls/hr 1X PRN PRN IV Hypotension; Start 08/01/19 at 09:45; Stop 08/01/19 at 15:44; Status DC Diphenhydramine HCl (Benadryl) 25 mg 1X PRN PRN IV ITCHING; Start 08/01/19 at 09:45; Stop 08/02/19 at 09:44; Status DC Diphenhydramine HCl (Benadryl) 25 mg 1X PRN PRN IV ITCHING; Start 08/01/19 at 09:45; Stop 08/02/19 at 09:44; Status DC Sodium Chloride 1,000 ml @ 400 mls/hr Q2H30M PRN IV PATENCY; Start 08/01/19 at 09:35; Stop 08/01/19 at 21:34; Status DC Info (PHARMACY MONITORING -- do not chart) 1 each PRN DAILY PRN MC SEE COMMENT S; Start 08/01/19 at 09:45; Status Cancel Sodium Chloride 100 meq/Potassium Phosphate 19 mmol/ Magnesium Sulfate 12 meq/Calcium Gluconate 15 meq/ Multivitamins 10 ml/Chromium/ Copper/Manganese/ Seleni/Zn 0.5 ml/ Insulin Human Regular 40 unit/ Potassium Chloride 20 meq/ Total Parenteral Nutrition/Amino Acids/Dextrose/ Fat Emulsion Intravenous 1,400 ml @ 58.333 mls/ hr TPN CONT IV Last administered on 08/01/19at 22:02; Start 08/01/19 at 22:00; Stop 08/02/19 at 21:59; Status DC Furosemide (Lasix) 40 mg 1X ONCE IVP Last administered on 08/01/19at 14:39; Start 08/01/19 at 14:30; Stop 08/01/19 at 14:31; Status DC Metronidazole 100 ml @ 100 mls/hr Q8HRS IV Last administered on 08/09/19at 06:04; Start 08/02/19 at 10:00; Stop 08/09/19 at 08:10; Status DC Sodium Chloride 1,000 ml @ 1,000 mls/hr Q1H PRN IV hypotension; Start 08/02/19 at 08:00; Stop 08/02/19 at 13:59; Status DC Albumin Human 200 ml @ 200 mls/hr 1X PRN PRN IV Hypotension; Start 08/02/19 at 08:00; Stop 08/02/19 at 13:59; Status DC Sodium Chloride 1,000 ml @ 400 mls/hr Q2H30M PRN IV PATENCY; Start 08/02/19 at 08:00; Stop 08/02/19 at 19:59; Status DC Info (PHARMACY MONITORING -- do not chart) 1 each PRN DAILY PRN MC SEE COMMENTS; Start 08/02/19 at 11:30; Status UNV Info (PHARMACY MONITORING -- do not chart) 1 each PRN DAILY PRN MC SEE COMMENTS; Start 08/02/19 at 11:30; Stop 08/04/19 at 12:13; Status DC Sodium Chloride 100 meq/Potassium Phosphate 19 mmol/ Magnesium Sulfate 12 meq/Calcium Gluconate 15 meq/ Multivitamins 10 ml/Chromium/ Copper/Manganese/ Seleni/Zn 0.5 ml/ Insulin Human Regular 40 unit/ Potassium Chloride 20 meq/ Total Parenteral Nutrition/Amino Acids/Dextrose/ Fat Emulsion Intravenous 1,400 ml @ 58.333 mls/ hr TPN CONT IV Last administered on 08/02/19at 21:52; Start 08/02/19 at 22:00; Stop 08/03/19 at 21:59; Status DC Sodium Chloride (Normal Saline Flush) 10 ml QSHIFT PRN IV AFTER MEDS AND BLOOD DRAWS; Start 08/02/19 at 15:00; Stop 08/30/19 at 11:27; Status DC Sodium Chloride (Normal Saline Flush) 10 ml PRN Q5MIN PRN IV AFTER MEDS AND BLOOD DRAWS; Start 08/02/19 at 15:00 Sodium Chloride (Normal Saline Flush) 20 ml PRN Q5MIN PRN IV AFTER MEDS AND BL OOD DRAWS; Start 08/02/19 at 15:00 Sodium Chloride 100 meq/Potassium Phosphate 19 mmol/ Magnesium Sulfate 12 meq/Calcium Gluconate 15 meq/ Multivitamins 10 ml/Chromium/ Copper/Manganese/ Seleni/Zn 0.5 ml/ Insulin Human Regular 40 unit/ Potassium Chloride 20 meq/ Total Parenteral Nutrition/Amino Acids/Dextrose/ Fat Emulsion Intravenous 1,400 ml @ 58.333 mls/ hr TPN CONT IV Last administered on 08/03/19at 21:20; Start 08/03/19 at 22:00; Stop 08/04/19 at 21:59; Status DC Lidocaine HCl (Buffered Lidocaine 1%) 3 ml STK-MED ONCE .ROUTE ; Start 08/03/19 at 13:16; Stop 08/03/19 at 13:16; Status DC Lidocaine HCl (Buffered Lidocaine 1%) 6 ml 1X ONCE INJ Last administered on 08/03/19at 13:45; Start 08/03/19 at 13:30; Stop 08/03/19 at 13:31; Status DC Albumin Human 100 ml @ 100 mls/hr 1X ONCE IV Last administered on 08/03/19at 15:41; Start 08/03/19 at 15:00; Stop 08/03/19 at 15:59; Status DC Albumin Human 50 ml @ 50 mls/hr 1X ONCE IV Last administered on 08/03/19at 15:00; Start 08/03/19 at 15:00; Stop 08/03/19 at 15:59; Status DC Info (PHARMACY MONITORING -- do not chart) 1 each PRN DAILY PRN MC SEE COMMENTS; Start 08/04/19 at 11:30; Status Cancel Info (PHARMACY MONITORING -- do not chart) 1 each PRN DAILY PRN MC SEE COMMENTS; Start 08/04/19 at 11:30; Status UNV Sodium Chloride 100 meq/Potassium Phosphate 10 mmol/ Magnesium Sulfate 12 meq/Calcium Gluconate 15 meq/ Multivitamins 10 ml/Chromium/ Copper/Manganese/ Seleni/Zn 0.5 ml/ Insulin Human Regular 35 unit/ Potassium Chloride 20 meq/ Total Parenteral Nutrition/Amino Acids/Dextrose/ Fat Emulsion Intravenous 1,400 ml @ 58.333 mls/ hr TPN CONT IV Last administered on 08/04/19at 22:10; Start 08/04/19 at 22:00; Stop 08/05/19 at 21:59; Status DC Sodium Chloride 100 meq/Potassium Phosphate 5 mmol/ Magnesium Sulfate 12 meq/Calcium Gluconate 15 meq/ Multivitamins 10 ml/Chromium/ Copper/Manganese/ Seleni/Zn 0.5 ml/ Insulin Human Regular 35 unit/ Potassium Chloride 20 meq/ Total Parenteral Nutrition/Amino Acids/Dextrose/ Fat Emulsion Intravenous 1,400 ml @ 58.333 mls/ hr TPN CONT IV Last administered on 08/05/19at 22:59; Start 08/05/19 at 22:00; Stop 08/06/19 at 21:59; Status DC Sodium Chloride 1,000 ml @ 1,000 mls/hr Q1H PRN IV hypotension; Start 08/06/19 at 08:27; Stop 08/06/19 at 14:26; Status DC Albumin Human 200 ml @ 200 mls/hr 1X PRN PRN IV Hypotension Last administered on 08/06/19at 09:18; Start 08/06/19 at 08:30; Stop 08/06/19 at 14:29; Status DC Sodium Chloride 1,000 ml @ 400 mls/hr Q2H30M PRN IV PATENCY; Start 08/06/19 at 08:27; Stop 08/06/19 at 20:26; Status DC Info (PHARMACY MONITORING -- do not chart) 1 each PRN DAILY PRN MC SEE COMMENTS; Start 08/06/19 at 08:30; Status Cancel Info (PHARMACY MONITORING -- do not chart) 1 each PRN DAILY PRN MC SEE COMMENTS; Start 08/06/19 at 08:30; Stop 08/14/19 at 13:10; Status DC Sodium Chloride 100 meq/Potassium Chloride 40 meq/ Magnesium Sulfate 15 meq/Calcium Gluconate 15 meq/ Multivitamins 10 ml/Chromium/ Copper/Manganese/ Seleni/Zn 0.5 ml/ Insulin Human Regular 35 unit/ Total Parenteral Nutrition/Amino Acids/Dextrose/ Fat Emulsion Intravenous 1,400 ml @ 58.333 mls/ hr TPN CONT IV Last administered on 08/06/19at 22:00; Start 08/06/19 at 22:00; Stop 08/07/19 at 21:59; Status DC Potassium Chloride/Water 100 ml @ 100 mls/hr 1X ONCE IV Last administered on 08/06/19at 17:28; Start 08/06/19 at 14:45; Stop 08/06/19 at 15:44; Status DC Sodium Chloride 100 meq/Potassium Chloride 40 meq/ Magnesium Sulfate 15 meq/Calcium Gluconate 15 meq/ Multivitamins 10 ml/Chromium/ Copper/Manganese/ Seleni/Zn 0.5 ml/ Insulin Human Regular 35 unit/ Total Parenteral Nutrition/Amino Acids/Dextrose/ Fat Emulsion Intravenous 1,400 ml @ 58.333 mls/ hr TPN CONT IV Last administered on 08/07/19at 22:46; Start 08/07/19 at 22:00; Stop 08/08/19 at 21:59; Status DC Sodium Chloride 100 meq/Potassium Chloride 40 meq/ Magnesium Sulfate 20 meq/Calcium Gluconate 15 meq/ Multivitamins 10 ml/Chromium/ Copper/Manganese/ Seleni/Zn 0.5 ml/ Insulin Human Regular 35 unit/ Total Parenteral Nutrition/Amino Acids/Dextrose/ Fat Emulsion Intravenous 1,400 ml @ 58.333 mls/ hr TPN CONT IV Last administered on 08/08/19at 22:31; Start 08/08/19 at 22:00; Stop 08/09/19 at 21:59; Status DC Fentanyl Citrate (Fentanyl 2ml Vial) 50 mcg PRN Q2HR PRN IVP PAIN Last administered on 08/15/19at 13:32; Start 08/08/19 at 21:00; Stop 08/16/19 at 12:53; Status DC Fentanyl Citrate (Fentanyl 2ml Vial) 25 mcg PRN Q2HR PRN IVP PAIN; Start 08/08/19 at 21:00; Stop 08/16/19 at 12:54; Status DC Enoxaparin Sodium (Lovenox 100mg Syringe) 100 mg Q12HR SQ ; Start 08/09/19 at 21:00; Status UNV Amino Acids/ Glycerin/ Electrolytes 1,000 ml @ 75 mls/hr [id number] IV ; Start 08/08/19 at 21:15; Status UNV Sodium Chloride 1,000 ml @ 1,000 mls/hr Q1H PRN IV hypotension; Start 08/09/19 at 07:56; Stop 08/09/19 at 13:55; Status DC Albumin Human 200 ml @ 200 mls/hr 1X PRN PRN IV Hypotension Last administered on 08/09/19at 08:40; Start 08/09/19 at 08:00; Stop 08/09/19 at 13:59; Status DC Sodium Chloride 1,000 ml @ 400 mls/hr Q2H30M PRN IV PATENCY; Start 08/09/19 at 07:56; Stop 08/09/19 at 19:55; Status DC Info (PHARMACY MONITORING -- do not chart) 1 each PRN DAILY PRN MC SEE COMMENTS; Start 08/09/19 at 08:00; Status UNV Info (PHARMACY MONITORING -- do not chart) 1 each PRN DAILY PRN MC SEE COMMENTS; Start 08/09/19 at 08:00; Status UNV Daptomycin 430 mg/ Sodium Chloride 50 ml @ 100 mls/hr Q24H IV Last administered on 08/09/19at 12:35; Start 08/09/19 at 09:00; Stop 08/09/19 at 12:49; Status DC Sodium Chloride 100 meq/Potassium Chloride 40 meq/ Magnesium Sulfate 20 meq/Calcium Gluconate 15 meq/ Multivitamins 10 ml/Chromium/ Copper/Manganese/ Seleni/Zn 0.5 ml/ Insulin Human Regular 35 unit/ Total Parenteral Nutritio n/Amino Acids/Dextrose/ Fat Emulsion Intravenous 1,400 ml @ 58.333 mls/ hr TPN CONT IV Last administered on 08/09/19at 21:26; Start 08/09/19 at 22:00; Stop 08/10/19 at 21:59; Status DC Daptomycin 430 mg/ Sodium Chloride 50 ml @ 100 mls/hr Q48H IV ; Start 08/11/19 at 09:00; Stop 08/10/19 at 11:55; Status DC Sodium Chloride 100 meq/Potassium Chloride 40 meq/ Magnesium Sulfate 20 meq/Calcium Gluconate 15 meq/ Multivitamins 10 ml/Chromium/ Copper/Manganese/ Seleni/Zn 0.5 ml/ Insulin Human Regular 35 unit/ Total Parenteral Nutrition/Amino Acids/Dextrose/ Fat Emulsion Intravenous 1,400 ml @ 58.333 mls/ hr TPN CONT IV Last administered on 08/10/19at 22:27; Start 08/10/19 at 22:00; Stop 08/11/19 at 21:59; Status DC Daptomycin 430 mg/ Sodium Chloride 50 ml @ 100 mls/hr Q24H IV Last administered on 08/12/19at 15:07; Start 08/10/19 at 13:00; Stop 08/13/19 at 13:15; Status DC Sodium Chloride 100 meq/Potassium Chloride 40 meq/ Magnesium Sulfate 20 meq/Calcium Gluconate 10 meq/ Multivitamins 10 ml/Chromium/ Copper/Manganese/ Seleni/Zn 0.5 ml/ Insulin Human Regular 35 unit/ Total Parenteral Nutrition/Amino Acids/Dextrose/ Fat Emulsion Intravenous 1,400 ml @ 58.333 mls/ hr TPN CONT IV Last administered on 08/12/19at 00:06; Start 08/11/19 at 22:00; Stop 08/12/19 at 21:59; Status DC Alteplase, Recombinant (Cathflo For Central Catheter Clearance) 1 mg 1X ONCE INT CAT Last administered on 08/12/19at 11:44; Start 08/12/19 at 10:45; Stop 08/12/19 at 10:46; Status DC Ondansetron HCl (Zofran) 4 mg PRN Q6HRS PRN IV NAUSEA/VOMITING; Start 08/15/19 at 07:00; Stop 08/16/19 at 06:59; Status DC Fentanyl Citrate (Fentanyl 2ml Vial) 25 mcg PRN Q5MIN PRN IV MILD PAIN 1-3; Start 08/15/19 at 07:00; Stop 08/16/19 at 06:59; Status DC Fentanyl Citrate (Fentanyl 2ml Vial) 50 mcg PRN Q5MIN PRN IV MODERATE TO SEVERE PAIN Last administered on 08/15/19at 10:17; Start 08/15/19 at 07:00; Stop 08/16/19 at 06:59; Status DC Ringer's Solution 1,000 ml @ 30 mls/hr Q24H IV ; Start 08/15/19 at 07:00; Stop 08/15/19 at 18:59; Status DC Lidocaine HCl (Xylocaine-Mpf 1% 2ml Vial) 2 ml PRN 1X PRN ID PRIOR TO IV START; Start 08/15/19 at 07:00; Stop 08/16/19 at 06:59; Status DC Prochlorperazine Edisylate (Compazine) 5 mg PACU PRN PRN IV NAUSEA, MRX1; Start 08/15/19 at 07:00; Stop 08/16/19 at 06:59; Status DC Sodium Acetate 50 meq/Potassium Acetate 55 meq/ Magnesium Sulfate 20 meq/Calcium Gluconate 10 meq/ Multivitamins 10 ml/Chromium/ Copper/Manganese/ Seleni/Zn 0.5 ml/ Insulin Human Regular 35 unit/ Total Parenteral Nutrition/Amino Acids/Dextrose/ Fat Emulsion Intravenous 1,400 ml @ 58.333 mls/ hr TPN CONT IV ; Start 08/12/19 at 22:00; Stop 08/12/19 at 14:15; Status DC Sodium Acetate 50 meq/Potassium Acetate 55 meq/ Magnesium Sulfate 20 meq/Calcium Gluconate 10 meq/ Multivitamins 10 ml/Chromium/ Copper/Manganese/ Seleni/Zn 0.5 ml/ Insulin Human Regular 35 unit/ Total Parenteral Nutrition/Amino Acids/Dextrose/ Fat Emulsion Intravenous 1,800 ml @ 75 mls/hr TPN CONT IV Last administered on 08/12/19at 22:38; Start 08/12/19 at 22:00; Stop 08/13/19 at 21:59; Status DC Sodium Chloride 1,000 ml @ 1,000 mls/hr Q1H PRN IV hypotension; Start 08/12/19 at 15:31; Stop 08/12/19 at 21:30; Status DC Diphenhydramine HCl (Benadryl) 25 mg 1X PRN PRN IV ITCHING; Start 08/12/19 at 15:45; Stop 08/13/19 at 15:44; Status DC Diphenhydramine HCl (Benadryl) 25 mg 1X PRN PRN IV ITCHING; Start 08/12/19 at 15:45; Stop 08/13/19 at 15:44; Status DC Sodium Chloride 1,000 ml @ 400 mls/hr Q2H30M PRN IV PATENCY; Start 08/12/19 at 15:31; Stop 08/13/19 at 03:30; Status DC Info (PHARMACY MONITORING -- do not chart) 1 each PRN DAILY PRN MC SEE COMMENTS; Start 08/12/19 at 15:45; Stop 09/13/19 at 14:14; Status DC Sodium Acetate 50 meq/Potassium Acetate 55 meq/ Magnesium Sulfate 20 meq/Calcium Gluconate 10 meq/ Multivitamins 10 ml/Chromium/ Copper/Manganese/ Seleni/Zn 0.5 ml/ Insulin Human Regular 35 unit/ Total Parenteral Nutrition/Amino Acids/Dextrose/ Fat Emulsion Intravenous 1,800 ml @ 75 mls/hr TPN CONT IV Last administered on 08/13/19at 22:03; Start 08/13/19 at 22:00; Stop 08/14/19 at 21:59; Status DC Daptomycin 430 mg/ Sodium Chloride 50 ml @ 100 mls/hr Q24H IV Last administered on 08/18/19at 13:00; Start 08/13/19 at 13:00; Stop 08/18/19 at 20:58; Status DC Heparin Sodium (Porcine) 1000 unit/Sodium Chloride 1,001 ml @ 1,001 mls/hr 1X ONCE IRR ; Start 08/15/19 at 06:00; Stop 08/15/19 at 06:59; Status DC Potassium Acetate 55 meq/Magnesium Sulfate 20 meq/ Calcium Gluconate 10 meq/ Multivitamins 10 ml/Chromium/ Copper/Manganese/ Seleni/Zn 0.5 ml/ Insulin Human Regular 35 unit/ Total Parenteral Nutrition/Amino Acids/Dextrose/ Fat Emulsion Intravenous 1,920 ml @ 80 mls/hr TPN CONT IV Last administered on 08/14/19at 22:10; Start 08/14/19 at 22:00; Stop 08/15/19 at 21:59; Status DC Dexamethasone Sodium Phosphate (Decadron) 4 mg STK-MED ONCE .ROUTE ; Start 08/15/19 at 10:56; Stop 08/15/19 at 10:57; Status DC Ondansetron HCl (Zofran) 4 mg STK-MED ONCE .ROUTE ; Start 08/15/19 at 10:56; Stop 08/15/19 at 10:57; Status DC Rocuronium [place] (Zemuron) 50 mg STK-MED ONCE .ROUTE ; Start 08/15/19 at 10:56; Stop 08/15/19 at 10:57; Status DC Fentanyl Citrate (Fentanyl 2ml Vial) 100 mcg STK-MED ONCE .ROUTE ; Start 08/15/19 at 10:56; Stop 08/15/19 at 10:57; Status DC Bupivacaine HCl/ Epinephrine Bitart (Sensorcain-Epi 0.5%-1:311246 Mpf) 30 ml STK-MED ONCE .ROUTE Last administered on 08/15/19at 12:01; Start 08/15/19 at 10:58; Stop 08/15/19 at 10:58; Status DC Cellulose (Surgicel Hemostat 2x14) 1 each STK-MED ONCE .ROUTE ; Start 08/15/19 at 10:58; Stop 08/15/19 at 10:59; Status DC Iohexol (Omnipaque 300 Mg/ml) 50 ml STK-MED ONCE .ROUTE ; Start 08/15/19 at 10:58; Stop 08/15/19 at 10:59; Status DC Cellulose (Surgicel Hemostat 4x8) 1 each STK-MED ONCE .ROUTE ; Start 08/15/19 at 10:58; Stop 08/15/19 at 10:59; Status DC Bisacodyl (Dulcolax Supp) 10 mg STK-MED ONCE .ROUTE ; Start 08/15/19 at 10:59; Stop 08/15/19 at 10:59; Status DC Heparin Sodium (Porcine) 1000 unit/Sodium Chloride 1,001 ml @ 1,001 mls/hr 1X ONCE IRR ; Start 08/15/19 at 12:00; Stop 08/15/19 at 12:59; Status DC Propofol 20 ml @ As Directed STK-MED ONCE IV ; Start 08/15/19 at 11:05; Stop 08/15/19 at 11:05; Status DC Sevoflurane (Ultane) 90 ml STK-MED ONCE IH ; Start 08/15/19 at 11:05; Stop 08/15/19 at 11:05; Status DC Sevoflurane (Ultane) 60 ml STK-MED ONCE IH ; Start 08/15/19 at 12:26; Stop 08/15/19 at 12:27; Status DC Propofol 20 ml @ As Directed STK-MED ONCE IV ; Start 08/15/19 at 12:26; Stop 08/15/19 at 12:27; Status DC Phenylephrine HCl (PHENYLEPHRINE in 0.9% NACL PF) 1 mg STK-MED ONCE IV ; Start 08/15/19 at 12:34; Stop 08/15/19 at 12:34; Status DC Heparin Sodium (Porcine) (Heparin Sodium) 5,000 unit Q12HR SQ Last administered on 08/24/19at 20:57; Start 08/15/19 at 21:00; Stop 08/25/19 at 09:59; Status DC Sodium Chloride (Normal Saline Flush) 3 ml QSHIFT PRN IV AFTER MEDS AND BLOOD DRAWS; Start 08/15/19 at 13:45 Naloxone HCl (Narcan) 0.4 mg PRN Q2MIN PRN IV SEE INSTRUCTIONS; Start 08/15/19 at 13:45 Sodium Chloride 1,000 ml @ 25 mls/hr Q24H IV Last administered on 09/13/19at 13:37; Start 08/15/19 at 13:37; Stop 09/16/19 at 13:09; Status DC Naloxone HCl (Narcan) 0.4 mg PRN Q2MIN PRN IV SEE INSTRUCTIONS; Start 08/15/19 at 14:30; Status UNV Sodium Chloride 1,000 ml @ 25 mls/hr Q24H IV ; Start 08/15/19 at 14:30; Status UNV Hydromorphone HCl 30 ml @ 0 mls/hr CONT PRN PRN IV PER PROTOCOL Last administered on 08/20/19at 16:08; Start 08/15/19 at 14:30; Stop 08/22/19 at 08:55; Status DC Potassium Acetate 55 meq/Magnesium Sulfate 20 meq/ Calcium Gluconate 10 meq/ Multivitamins 10 ml/Chromium/ Copper/Manganese/ Seleni/Zn 0.5 ml/ Insulin Human Regular 35 unit/ Total Parenteral Nutrition/Amino Acids/Dextrose/ Fat Emulsion Intravenous 1,920 ml @ 80 mls/hr TPN CONT IV Last administered on 08/15/19at 22:01; Start 08/15/19 at 22:00; Stop 08/16/19 at 21:59; Status DC Bumetanide (Bumex) 2 mg [id number] IV Last administered on 08/19/19at 13:50; Start 08/16/19 at 14:00; Stop 08/20/19 at 14:10; Status DC Meropenem 1 gm/ Sodium Chloride 100 ml @ 200 mls/hr Q8HRS IV Last administered on 09/09/19at 05:53; Start 08/16/19 at 14:00; Stop 09/09/19 at 09:31; Status DC Potassium Acetate 55 meq/Magnesium Sulfate 20 meq/ Calcium Gluconate 10 meq/ Multivitamins 10 ml/Chromium/ Copper/Manganese/ Seleni/Zn 0.5 ml/ Insulin Human Regular 35 unit/ Total Parenteral Nutrition/Amino Acids/Dextrose/ Fat Emulsion Intravenous 1,920 ml @ 80 mls/hr TPN CONT IV Last administered on 08/16/19at 22:02; Start 08/16/19 at 22:00; Stop 08/17/19 at 21:59; Status DC Hydromorphone HCl (Dilaudid Standard A P MECHANIC) 12 mg STK-MED ONCE IV ; Start 08/15/19 at 14:35; Stop 08/16/19 at 13:53; Status DC Artificial Tears (Artificial Tears) 1 drop PRN Q15MIN PRN OU DRY EYE Last administered on 09/16/19at 10:08; Start 08/17/19 at 05:30 Hydromorphone HCl (Dilaudid Standard A P MECHANIC) 12 mg STK-MED ONCE IV ; Start 08/16/19 at 12:05; Stop 08/17/19 at 09:15; Status DC Potassium Acetate 65 meq/Magnesium Sulfate 20 meq/ Calcium Gluconate 10 meq/ Multivitamins 10 ml/Chromium/ Copper/Manganese/ Seleni/Zn 0.5 ml/ Insulin Human Regular 30 unit/ Total Parenteral Nutrition/Amino Acids/Dextrose/ Fat Emulsion Intravenous 1,920 ml @ 80 mls/hr TPN CONT IV Last administered on 08/17/19at 22:22; Start 08/17/19 at 22:00; Stop 08/18/19 at 21:59; Status DC Cyclobenzaprine HCl (Flexeril) 10 mg PRN Q6HRS PRN PO MUSCLE SPASMS; Start 08/18/19 at 10:45 Potassium Acetate 55 meq/Magnesium Sulfate 20 meq/ Calcium Gluconate 10 meq/ Multivitamins 10 ml/Chromium/ Copper/Manganese/ Seleni/Zn 0.5 ml/ Insulin Human Regular 30 unit/ Total Parenteral Nutrition/Amino Acids/Dextrose/ Fat Emulsion Intravenous 1,920 ml @ 80 mls/hr TPN CONT IV Last administered on 08/19/19at 01:00; Start 08/18/19 at 22:00; Stop 08/19/19 at 21:59; Status DC Magnesium Sulfate 50 ml @ 25 mls/hr 1X ONCE IV Last administered on 08/18/19at 17:18; Start 08/18/19 at 12:45; Stop 08/18/19 at 14:44; Status DC Potassium Chloride/Water 100 ml @ 100 mls/hr 1X ONCE IV Last administered on 08/19/19at 11:27; Start 08/19/19 at 12:00; Stop 08/19/19 at 12:59; Status DC Hydromorphone HCl (Dilaudid Standard A P MECHANIC) 12 mg STK-MED ONCE IV ; Start 08/17/19 at 10:50; Stop 08/19/19 at 11:02; Status DC Hydromorphone HCl (Dilaudid Standard A P MECHANIC) 12 mg STK-MED ONCE IV ; Start 08/18/19 at 13:47; Stop 08/19/19 at 11:03; Status DC Potassium Acetate 30 meq/Magnesium Sulfate 20 meq/ Calcium Gluconate 10 meq/ Multivitamins 10 ml/Chromium/ Copper/Manganese/ Seleni/Zn 0.5 ml/ Insulin Human Regular 30 unit/ Potassium Chloride 30 meq/ Total Parenteral Nutrition/Amino Aci ds/Dextrose/ Fat Emulsion Intravenous 1,920 ml @ 80 mls/hr TPN CONT IV Last administered on 08/19/19at 22:34; Start 08/19/19 at 22:00; Stop 08/20/19 at 21:59; Status DC Potassium Chloride/Water 100 ml @ 100 mls/hr Q1H IV Last administered on 08/20/19at 13:05; Start 08/20/19 at 07:00; Stop 08/20/19 at 10:59; Status DC Magnesium Sulfate 50 ml @ 25 mls/hr 1X ONCE IV Last administered on 08/20/19at 10:34; Start 08/20/19 at 10:30; Stop 08/20/19 at 12:29; Status DC Potassium Chloride 75 meq/ Magnesium Sulfate 20 meq/Calcium Gluconate 10 meq/ Multivitamins 10 ml/Chromium/ Copper/Manganese/ Seleni/Zn 0.5 ml/ Insulin Human Regular 30 unit/ Total Parenteral Nutrition/Amino Acids/Dextrose/ Fat Emulsion Intravenous 1,920 ml @ 80 mls/hr TPN CONT IV Last administered on 08/20/19at 21:51; Start 08/20/19 at 22:00; Stop 08/21/19 at 22:00; Status DC Potassium Chloride 75 meq/ Magnesium Sulfate 20 meq/Calcium Gluconate 10 meq/ Multivitamins 10 ml/Chromium/ Copper/Manganese/ Seleni/Zn 0.5 ml/ Insulin Human Regular 25 unit/ Total Parenteral Nutrition/Amino Acids/Dextrose/ Fat Emulsion Intravenous 1,920 ml @ 80 mls/hr TPN CONT IV Last administered on 08/21/19at 22:04; Start 08/21/19 at 22:00; Stop 08/22/19 at 21:59; Status DC Hydromorphone HCl (Dilaudid) 0.4 mg PRN Q4HRS PRN IVP PAIN Last administered on 08/22/19at 10:57; Start 08/22/19 at 09:00; Stop 08/22/19 at 18:59; Status DC Micafungin Sodium 100 mg/Dextrose 100 ml @ 100 mls/hr Q24H IV Last administered on 09/13/19at 12:17; Start 08/22/19 at 11:00; Stop 09/14/19 at 09:59; Status DC Daptomycin 485 mg/ Sodium Chloride 50 ml @ 100 mls/hr Q24H IV Last administered on 08/29/19at 13:10; Start 08/22/19 at 11:00; Stop 08/30/19 at 07:44; Status DC Potassium Chloride 75 meq/ Magnesium Sulfate 15 meq/Calcium Gluconate 8 meq/ Multivitamins 10 ml/Chromium/ Copper/Manganese/ Seleni/Zn 0.5 ml/ Insulin Human Regular 25 unit/ Total Parenteral Nutrition/Amino Acids/Dextrose/ Fat Emulsion Intravenous 1,920 ml @ 80 mls/hr TPN CONT IV Last administered on 08/22/19at 23:08; Start 08/22/19 at 22:00; Stop 08/23/19 at 21:59; Status DC Haloperidol Lactate (Haldol Inj) 3 mg 1X ONCE IVP Last administered on 08/22/19at 14:37; Start 08/22/19 at 14:30; Stop 08/22/19 at 14:31; Status DC Hydromorphone HCl (Dilaudid) 1 mg PRN Q4HRS PRN IVP PAIN Last administered on 09/05/19at 06:25; Start 08/22/19 at 19:00; Stop 09/05/19 at 17:10; Status DC Potassium Chloride 75 meq/ Magnesium Sulfate 15 meq/Calcium Gluconate 8 meq/ Multivitamins 10 ml/Chromium/ Copper/Manganese/ Seleni/Zn 0.5 ml/ Insulin Human Regular 20 unit/ Total Parenteral Nutrition/Amino Acids/Dextrose/ Fat Emulsion Intravenous 1,920 ml @ 80 mls/hr TPN CONT IV Last administered on 08/23/19at 22:10; Start 08/23/19 at 22:00; Stop 08/24/19 at 21:59; Status DC Lidocaine HCl (Buffered Lidocaine 1%) 3 ml STK-MED ONCE .ROUTE ; Start 08/24/19 at 11:31; Stop 08/24/19 at 11:31; Status DC Lidocaine HCl (Buffered Lidocaine 1%) 3 ml STK-MED ONCE .ROUTE ; Start 08/24/19 at 12:28; Stop 08/24/19 at 12:29; Status DC Lidocaine HCl (Buffered Lidocaine 1%) 6 ml 1X ONCE INJ Last administered on 08/24/19at 12:53; Start 08/24/19 at 12:45; Stop 08/24/19 at 12:46; Status DC Potassium Chloride 75 meq/ Magnesium Sulfate 15 meq/Calcium Gluconate 8 meq/ Multivitamins 10 ml/Chromium/ Copper/Manganese/ Seleni/Zn 0.5 ml/ Insulin Human Regular 20 unit/ Total Parenteral Nutrition/Amino Acids/Dextrose/ Fat Emulsion Intravenous 1,920 ml @ 80 mls/hr TPN CONT IV Last administered on 08/24/19at 22:00; Start 08/24/19 at 22:00; Stop 08/25/19 at 21:59; Status DC Potassium Chloride 75 meq/ Magnesium Sulfate 15 meq/Calcium Gluconate 8 meq/ Multivitamins 10 ml/Chromium/ Copper/Manganese/ Seleni/Zn 0.5 ml/ Insulin Human Regular 15 unit/ Total Parenteral Nutrition/Amino Acids/Dextrose/ Fat Emulsion Intravenous 1,920 ml @ 80 mls/hr TPN CONT IV Last administered on 08/25/19at 22:28; Start 08/25/19 at 22:00; Stop 08/26/19 at 21:59; Status DC Vecuronium [place] (Norcuron Bolus) 6 mg PRN Q6HRS PRN IV VENT ASYNCHRONY; Start 08/25/19 at 19:15; Stop 08/25/19 at 19:35; Status DC Bumetanide (Bumex) 2 mg 1X ONCE IV Last administered on 08/25/19at 22:09; Start 08/25/19 at 19:45; Stop 08/25/19 at 19:46; Status DC Lidocaine HCl (Buffered Lidocaine 1%) 3 ml STK-MED ONCE .ROUTE ; Start 08/26/19 at 07:59; Stop 08/26/19 at 07:59; Status DC Midazolam HCl (Versed) 5 mg STK-MED ONCE .ROUTE ; Start 08/26/19 at 08:36; Stop 08/26/19 at 08:36; Status DC Fentanyl Citrate (Fentanyl 5ml Vial) 250 mcg STK-MED ONCE .ROUTE ; Start 08/26/19 at 08:36; Stop 08/26/19 at 08:37; Status DC Lidocaine HCl (Buffered Lidocaine 1%) 3 ml 1X ONCE IJ Last administered on 08/26/19at 09:30; Start 08/26/19 at 09:15; Stop 08/26/19 at 09:16; Status DC Midazolam HCl (Versed) 5 mg 1X ONCE IV Last administered on 08/26/19at 09:30; Start 08/26/19 at 09:15; Stop 08/26/19 at 09:16; Status DC Fentanyl Citrate (Fentanyl 5ml Vial) 250 mcg 1X ONCE IV Last administered on 08/26/19at 09:30; Start 08/26/19 at 09:15; Stop 08/26/19 at 09:16; Status DC Bumetanide (Bumex) 2 mg DAILY IV Last administered on 09/05/19at 08:07; Start 08/26/19 at 10:00; Stop 09/05/19 at 17:15; Status DC Potassium Chloride 75 meq/ Magnesium Sulfate 15 meq/ Multivitamins 10 ml/Chromium/ Copper/Manganese/ Seleni/Zn 0.5 ml/ Insulin Human Regular 15 unit/ Total Parenteral Nutrition/Amino Acids/Dextrose/ Fat Emulsion Intravenous 1,920 ml @ 80 mls/hr TPN CONT IV Last administered on 08/26/19at 21:59; Start 08/26/19 at 22:00; Stop 08/27/19 at 21:59; Status DC Metoclopramide HCl (Reglan Vial) 10 mg PRN Q3HRS PRN IVP NAUSEA/VOMITING-3rd choice Last administered on 09/01/19at 04:25; Start 08/27/19 at 16:45 Potassium Chloride 75 meq/ Magnesium Sulfate 15 meq/ Multivitamins 10 ml/Chromium/ Copper/Manganese/ Seleni/Zn 0.5 ml/ Insulin Human Regular 15 unit/ Total Parenteral Nutrition/Amino Acids/Dextrose/ Fat Emulsion Intravenous 1,920 ml @ 80 mls/hr TPN CONT IV Last administered on 08/27/19at 22:41; Start 08/27/19 at 22:00; Stop 08/28/19 at 21:59; Status DC Magnesium Sulfate 50 ml @ 25 mls/hr 1X ONCE IV Last administered on 08/28/19at 10:44; Start 08/28/19 at 09:00; Stop 08/28/19 at 10:59; Status DC Potassium Chloride/Water 100 ml @ 100 mls/hr 1X ONCE IV Last administered on 08/28/19at 09:37; Start 08/28/19 at 09:00; Stop 08/28/19 at 09:59; Status DC Duloxetine HCl (Cymbalta) 30 mg DAILY PO Last administered on 08/29/19at 09:48; Start 08/28/19 at 14:00; Stop 08/31/19 at 10:25; Status DC Potassium Chloride 80 meq/ Magnesium Sulfate 20 meq/ Multivitamins 10 ml/Chromium/ Copper/Manganese/ Seleni/Zn 0.5 ml/ Insulin Human Regular 15 unit/ Total Parenteral Nutrition/Amino Acids/Dextrose/ Fat Emulsion Intravenous 1,920 ml @ 80 mls/hr TPN CONT IV Last administered on 08/28/19at 21:42; Start 08/28/19 at 22:00; Stop 08/29/19 at 21:59; Status DC Potassium Chloride 80 meq/ Magnesium Sulfate 20 meq/ Multivitamins 10 ml/Chromium/ Copper/Manganese/ Seleni/Zn 0.5 ml/ Insulin Human Regular 15 unit/ Total Parenteral Nutrition/Amino Acids/Dextrose/ Fat Emulsion Intravenous 1,920 ml @ 80 mls/hr TPN CONT IV Last administered on 08/29/19at 22:20; Start 08/29/19 at 22:00; Stop 08/30/19 at 21:59; Status DC Lidocaine HCl (Buffered Lidocaine 1%) 3 ml STK-MED ONCE .ROUTE ; Start 08/30/19 at 09:54; Stop 08/30/19 at 09:55; Status DC Hydromorphone HCl (Dilaudid Standard A P MECHANIC) 12 mg STK-MED ONCE IV ; Start 08/19/19 at 15:50; Stop 08/30/19 at 11:24; Status DC Potassium Chloride 80 meq/ Magnesium Sulfate 20 meq/ Multivitamins 10 ml/Chromium/ Copper/Manganese/ Seleni/Zn 0.5 ml/ Insulin Human Regular 15 unit/ Total Parenteral Nutrition/Amino Acids/Dextrose/ Fat Emulsion Intravenous 1,920 ml @ 80 mls/hr TPN CONT IV Last administered on 08/30/19at 21:40; Start 08/30/19 at 22:00; Stop 08/31/19 at 21:59; Status DC Lidocaine HCl (Buffered Lidocaine 1%) 6 ml 1X ONCE INJ Last administered on 08/30/19at 14:15; Start 08/30/19 at 14:15; Stop 08/30/19 at 14:16; Status DC Potassium Chloride 80 meq/ Magnesium Sulfate 20 meq/ Multivitamins 10 ml/Chromium/ Copper/Manganese/ Seleni/Zn 1 ml/ Insulin Human Regular 15 unit/ Total Parenteral Nutrition/Amino Acids/Dextrose/ Fat Emulsion Intravenous 1,920 ml @ 80 mls/hr TPN CONT IV Last administered on 08/31/19at 22:04; Start at 22:00; Stop 09/01/19 at 21:59; Status DC Potassium Chloride/Water 100 ml @ 100 mls/hr 1X ONCE IV Last administered on 09/01/19at 11:34; Start 09/01/19 at 11:00; Stop 09/01/19 at 11:59; Status DC Potassium Chloride 90 meq/ Magnesium Sulfate 20 meq/ Multivitamins 10 ml/Chromium/ Copper/Manganese/ Seleni/Zn 1 ml/ Insulin Human Regular 15 unit/ Total Parenteral Nutrition/Amino Acids/Dextrose/ Fat Emulsion Intravenous 1,920 ml @ 80 mls/hr TPN CONT IV Last administered on 09/01/19at 22:57; Start 09/01/19 at 22:00; Stop 09/02/19 at 21:59; Status DC Potassium Chloride 90 meq/ Magnesium Sulfate 20 meq/ Multivitamins 10 ml/Ch romium/ Copper/Manganese/ Seleni/Zn 1 ml/ Insulin Human Regular 15 unit/ Total Parenteral Nutrition/Amino Acids/Dextrose/ Fat Emulsion Intravenous 1,920 ml @ 80 mls/hr TPN CONT IV Last administered on 09/02/19at 22:48; Start 09/02/19 at 22:00; Stop 09/03/19 at 21:59; Status DC Potassium Chloride 90 meq/ Magnesium Sulfate 20 meq/ Multivitamins 10 ml/Chromium/ Copper/Manganese/ Seleni/Zn 1 ml/ Insulin Human Regular 15 unit/ Total Parenteral Nutrition/Amino Acids/Dextrose/ Fat Emulsion Intravenous 1,890 ml @ 78.75 mls/ hr TPN CONT IV Last administered on 09/03/19at 22:15; Start 09/03/19 at 22:00; Stop 09/04/19 at 21:59; Status DC Linezolid/Dextrose 300 ml @ 300 mls/hr Q12HR IV Last administered on 09/06/19at 21:08; Start 09/04/19 at 09:00; Stop 09/07/19 at 08:11; Status DC Daptomycin 450 mg/ Sodium Chloride 50 ml @ 100 mls/hr Q24H IV Last administered on 09/07/19at 09:25; Start 09/04/19 at 09:00; Stop 09/08/19 at 08:30; Status DC Potassium Chloride 90 meq/ Magnesium Sulfate 20 meq/ Multivitamins 10 ml/ Chromium/ Copper/Manganese/ Seleni/Zn 1 ml/ Insulin Human Regular 15 unit/ Total Parenteral Nutrition/Amino Acids/Dextrose/ Fat Emulsion Intravenous 1,890 ml @ 78.75 mls/ hr TPN CONT IV Last administered on 09/04/19at 21:34; Start 09/04/19 at 22:00; Stop 09/05/19 at 21:59; Status DC Lorazepam (Ativan Inj) 2 mg STK-MED ONCE .ROUTE ; Start 09/04/19 at 14:58; Stop 09/04/19 at 14:58; Status DC Metoprolol Tartrate (Lopressor Vial) 5 mg 1X ONCE IVP Last administered on 09/04/19at 15:31; Start 09/04/19 at 15:15; Stop 09/04/19 at 15:16; Status DC Lorazepam (Ativan Inj) 2 mg 1X ONCE IVP Last administered on 09/04/19at 15:30; Start 09/04/19 at 15:15; Stop 09/04/19 at 15:16; Status DC Enoxaparin Sodium (Lovenox 40mg Syringe) 40 mg Q24H SQ Last administered on 09/23/19at 17:44; Start 09/04/19 at 17:00 Lorazepam (Ativan Inj) 1 mg PRN Q4HRS PRN IVP ANXIETY / AGITATION MILD-MOD Last administered on 09/18/19at 15:55; Start 09/04/19 at 19:15; Stop 09/20/19 at 11:45; Status DC Lorazepam (Ativan Inj) 2 mg PRN Q4HRS PRN IVP ANXIETY / AGITATION SEVERE Last administered on 09/19/19at 07:55; Start 09/04/19 at 19:15; Stop 09/20/19 at 11:45; Status DC Fentanyl Citrate (Fentanyl 2ml Vial) 50 mcg PRN Q4HRS PRN IVP SEVERE PAIN Last administered on 09/22/19at 18:04; Start 09/05/19 at 13:15 Fentanyl Citrate (Fentanyl 2ml Vial) 25 mcg PRN Q4HRS PRN IVP MODERATE PAIN Last administered on 09/24/19at 06:27; Start 09/05/19 at 13:15 Potassium Chloride 90 meq/ Magnesium Sulfate 20 meq/ Multivitamins 10 ml/Chromium/ Copper/Manganese/ Seleni/Zn 1 ml/ Insulin Human Regular 15 unit/ Total Parenteral Nutrition/Amino Acids/Dextrose/ Fat Emulsion Intravenous 1,890 ml @ 78.75 mls/ hr TPN CONT IV Last administered on 09/05/19at 22:18; Start 09/05/19 at 22:00; Stop 09/06/19 at 21:59; Status DC Furosemide (Lasix) 40 mg 1X ONCE IVP Last administered on 09/05/19at 21:51; Start 09/05/19 at 21:45; Stop 09/05/19 at 21:48; Status DC Albumin Human 100 ml @ 100 mls/hr 1X PRN PRN IV SEE COMMENTS; Start 09/06/19 at 01:30 Furosemide (Lasix) 40 mg [id number] IVP Last administered on 09/21/19at 08:04; Start 09/06/19 at 14:00; Stop 09/21/19 at 13:07; Status DC Potassium Chloride 90 meq/ Magnesium Sulfate 20 meq/ Multivitamins 10 ml/Chromium/ Copper/Manganese/ Seleni/Zn 1 ml/ Insulin Human Regular 15 unit/ Total Parenteral Nutrition/Amino Acids/Dextrose/ Fat Emulsion Intravenous 1,800 ml @ 75 mls/hr TPN CONT IV Last administered on 09/06/19at 22:31; Start 09/06/19 at 22:00; Stop 09/07/19 at 21:59; Status DC Potassium Chloride 90 meq/ Magnesium Sulfate 20 meq/ Multivitamins 10 ml/Chromium/ Copper/Manganese/ Seleni/Zn 1 ml/ Insulin Human Regular 15 unit/ Total Parenteral Nutrition/Amino Acids/Dextrose/ Fat Emulsion Intravenous 1,800 ml @ 75 mls/hr TPN CONT IV Last administered on 09/07/19at 22:28; Start 09/07/19 at 22:00; Stop 09/08/19 at 21:59; Status DC Potassium Chloride 110 meq/ Magnesium Sulfate 20 meq/ Multivitamins 10 ml/Chromium/ Copper/Manganese/ Seleni/Zn 1 ml/ Insulin Human Regular 15 unit/ Total Parenteral Nutrition/Amino Acids/Dextrose/ Fat Emulsion Intravenous 1,800 ml @ 75 mls/hr TPN CONT IV Last administered on 09/08/19at 22:01; Start 09/08/19 at 22:00; Stop 09/09/19 at 21:59; Status DC Saliva Substitute (Biotene Moisturizing Mouth) 2 spray PRN Q15MIN PRN PO DRY MOUTH; Start 09/08/19 at 11:00 Potassium Chloride 110 meq/ Magnesium Sulfate 20 meq/ Multivitamins 10 ml/Chromium/ Copper/Manganese/ Seleni/Zn 1 ml/ Insulin Human Regular 15 unit/ Total Parenteral Nutrition/Amino Acids/Dextrose/ Fat Emulsion Intravenous 1,800 ml @ 75 mls/hr TPN CONT IV Last administered on 09/09/19at 22:21; Start 09/09/19 at 22:00; Stop 09/10/19 at 21:59; Status DC Potassium Chloride 110 meq/ Magnesium Sulfate 20 meq/ Multivitamins 10 ml/Chromium/ Copper/Manganese/ Seleni/Zn 1 ml/ Insulin Human Regular 15 unit/ Total Parenteral Nutrition/Amino Acids/Dextrose/ Fat Emulsion Intravenous 1,800 ml @ 75 mls/hr TPN CONT IV Last administered on 09/10/19at 22:04; Start 09/10/19 at 22:00; Stop 09/11/19 at 21:59; Status DC Potassium Chloride 110 meq/ Magnesium Sulfate 20 meq/ Multivitamins 10 ml/Chromium/ Copper/Manganese/ Seleni/Zn 1 ml/ Insulin Human Regular 15 unit/ Total Parenteral Nutrition/Amino Acids/Dextrose/ Fat Emulsion Intravenous 1,800 ml @ 75 mls/hr TPN CONT IV Last administered on 09/11/19at 22:48; Start 09/11/19 at 22:00; Stop 09/12/19 at 21:59; Status DC Potassium Chloride 70 meq/ Magnesium Sulfate 20 meq/ Multivitamins 10 ml/Chromium/ Copper/Manganese/ Seleni/Zn 1 ml/ Insulin Human Regular 15 unit/ Total Parenteral Nutrition/Amino Acids/Dextrose/ Fat Emulsion Intravenous 1,800 ml @ 75 mls/hr TPN CONT IV Last administered on 09/12/19at 21:39; Start 09/12/19 at 22:00; Stop 09/13/19 at 21:59; Status DC Meropenem 500 mg/ Sodium Chloride 50 ml @ 100 mls/hr Q6HRS IV Last administered on 09/14/19at 06:02; Start 09/12/19 at 18:00; Stop 09/14/19 at 09:59; Status DC Barium Sulfate (Varibar Thin Liquid Apple) 148 gm 1X ONCE PO ; Start 09/13/19 at 11:45; Stop 09/13/19 at 11:49; Status DC Potassium Chloride 70 meq/ Magnesium Sulfate 20 meq/ Multivitamins 10 ml/Chromium/ Copper/Manganese/ Seleni/Zn 1 ml/ Insulin Human Regular 15 unit/ Total Parenteral Nutrition/Amino Acids/Dextrose/ Fat Emulsion Intravenous 1,800 ml @ 75 mls/hr TPN CONT IV Last administered on 09/13/19at 22:27; Start 09/13/19 at 22:00; Stop 09/14/19 at 21:59; Status DC Piperacillin Sod/ Tazobactam Sod 3.375 gm/Sodium Chloride 50 ml @ 100 mls/hr Q6HRS IV Last administered on 09/22/19at 06:10; Start 09/14/19 at 12:00; Stop 09/22/19 at 07:26; Status DC Potassium Chloride 70 meq/ Magnesium Sulfate 20 meq/ Multivitamins 10 ml/Chromium/ Copper/Manganese/ Seleni/Zn 1 ml/ Insulin Human Regular 15 unit/ Total Parenteral Nutrition/Amino Acids/Dextrose/ Fat Emulsion Intravenous 1,800 ml @ 75 mls/hr TPN CONT IV Last administered on 09/14/19at 22:03; Start 09/14/19 at 22:00; Stop 09/15/19 at 21:59; Status DC Potassium Chloride 70 meq/ Magnesium Sulfate 20 meq/ Multivitamins 10 ml/Chromium/ Copper/Manganese/ Seleni/Zn 1 ml/ Insulin Human Regular 15 unit/ Total Parenteral Nutrition/Amino Acids/Dextrose/ Fat Emulsion Intravenous 1,800 ml @ 75 mls/hr TPN CONT IV Last administered on 09/15/19at 22:33; Start 09/15/19 at 22:00; Stop 09/16/19 at 21:59; Status DC Potassium Chloride 70 meq/ Magnesium Sulfate 20 meq/ Multivitamins 10 ml/Chromium/ Copper/Manganese/ Seleni/Zn 1 ml/ Insulin Human Regular 15 unit/ Total Parenteral Nutrition/Amino Acids/Dextrose/ Fat Emulsion Intravenous 1,800 ml @ 75 mls/hr TPN CONT IV Last administered on 09/16/19at 23:13; Start 09/16/19 at 22:00; Stop 09/17/19 at 21:59; Status DC Potassium Chloride 80 meq/ Magnesium Sulfate 20 meq/ Multivitamins 10 ml/Chromium/ Copper/Manganese/ Seleni/Zn 1 ml/ Insulin Human Regular 15 unit/ Total Parenteral Nutrition/Amino Acids/Dextrose/ Fat Emulsion Intravenous 1,800 ml @ 75 mls/hr TPN CONT IV Last administered on 09/17/19at 22:30; Start 09/17/19 at 22:00; Stop 09/18/19 at 21:59; Status DC Potassium Chloride 80 meq/ Magnesium Sulfate 20 meq/ Multivitamins 10 ml/Chromium/ Copper/Manganese/ Seleni/Zn 1 ml/ Insulin Human Regular 15 unit/ Total Parenteral Nutrition/Amino Acids/Dextrose/ Fat Emulsion Intravenous 1,800 ml @ 75 mls/hr TPN CONT IV Last administered on 09/18/19at 21:54; Start 09/18/19 at 22:00; Stop 09/19/19 at 21:59; Status DC Potassium Chloride/Water 100 ml @ 100 mls/hr 1X ONCE IV Last administered on 09/19/19at 10:15; Start 09/19/19 at 10:00; Stop 09/19/19 at 10:59; Status DC Potassium Chloride 90 meq/ Magnesium Sulfate 20 meq/ Multivitamins 10 ml/Chromium/ Copper/Manganese/ Seleni/Zn 1 ml/ Insulin Human Regular 20 unit/ Total Parenteral Nutrition/Amino Acids/Dextrose/ Fat Emulsion Intravenous 1,800 ml @ 75 mls/hr TPN CONT IV Last administered on 09/19/19at 22:28; Start 09/19/19 at 22:00; Stop 09/20/19 at 21:59; Status DC Potassium Chloride 90 meq/ Magnesium Sulfate 20 meq/ Multivitamins 10 ml/[employer] mium/ Copper/Manganese/ Seleni/Zn 1 ml/ Insulin Human Regular 20 unit/ Total Parenteral Nutrition/Amino Acids/Dextrose/ Fat Emulsion Intravenous 1,800 ml @ 75 mls/hr TPN CONT IV Last administered on 09/20/19at 22:08; Start 09/20/19 at 22:00; Stop 09/21/19 at 21:59; Status DC Lorazepam (Ativan Inj) 0.25 mg PRN Q4HRS PRN IVP ANXIETY / AGITATION Last administered on 09/21/19at 07:55; Start 09/21/19 at 07:30 Potassium Chloride 90 meq/ Magnesium Sulfate 20 meq/ Multivitamins 10 ml/Chromium/ Copper/Manganese/ Seleni/Zn 1 ml/ Insulin Human Regular 20 unit/ Total Parenteral Nutrition/Amino Acids/Dextrose/ Fat Emulsion Intravenous 1,800 ml @ 75 mls/hr TPN CONT IV Last administered on 09/21/19at 23:13; Start 09/21/19 at 22:00; Stop 09/22/19 at 21:59; Status DC Furosemide (Lasix) 40 mg DAILY IVP Last administered on 09/23/19at 11:14; Start 09/21/19 at 13:30 Fluoxetine HCl (PROzac) 20 mg QHS PEG Last administered on 09/23/19at 21:58; Start 09/22/19 at 21:00 Fentanyl (Duragesic 50mcg/ Hr Patch) 1 patch Q72H TD Last administered on 09/22/19at 21:22; Start 09/22/19 at 21:00 Potassium Chloride 40 meq/ Potassium Acetate 60 meq/Magnesium Sulfate 10 meq/ Multivitamins 10 ml/Chromium/ Copper/Manganese/ Seleni/Zn 1 ml/ Insulin Human Regular 20 unit/ Total Parenteral Nutrition/Amino Acids/Dextrose/ Fat Emulsion Intravenous 1,800 ml @ 75 mls/hr TPN CONT IV Last administered on 09/23/19at 00:03; Start 09/22/19 at 22:00; Stop 09/23/19 at 21:59; Status DC Potassium Acetate 80 meq/Magnesium Sulfate 5 meq/ Multivitamins 10 ml/Chromium/ Copper/Manganese/ Seleni/Zn 1 ml/ Insulin Human Regular 20 unit/ Total Parenteral Nutrition/Amino Acids/Dextrose/ Fat Emulsion Intravenous 1,920 ml @ 80 mls/hr TPN CONT IV Last administered on 09/23/19at 21:59; Start 09/23/19 at 22:00; Stop 09/24/19 at 21:59 Potassium Acetate 60 meq/Magnesium Sulfate 5 meq/ Multivitamins 10 ml/Chromium/ Copper/Manganese/ Seleni/Zn 1 ml/ Insulin Human Regular 30 unit/ Total Parenteral Nutrition/Amino Acids/Dextrose/ Fat Emulsion Intravenous 1,920 ml @ 80 mls/hr TPN CONT IV ; Start 09/24/19 at 22:00; Stop 09/25/19 at 21:59 Active Scripts Active Reported Bisoprolol Fumarate 5 Mg Tablet 10 Mg PO DAILY Vitals/I & O Vital Sign - Last 24 Hours 09/23/19 09/23/19 09/23/19 09/23/19 13:45 14:42 15:03 17:00 Temp 98.1 98.1 Pulse 138 134 Resp 22 B/P (MAP) 114/80 (91) 92/67 (75) Pulse Ox 90 90 90 95 O2 Delivery Room Air Room Air Room Air Room Air O2 Flow Rate 10.0 10.0 09/23/19 09/23/19 09/23/19 09/23/19 17:26 18:00 19:00 20:00 Temp 99.3 99.3 Pulse 135 134 134 Resp 24 20 22 B/P (MAP) 110/58 (75) 103/70 (81) 100/64 (76) Pulse Ox 94 94 94 O2 Delivery Room Air Room Air Room Air Room Air 09/23/19 09/23/19 09/23/19 09/23/19 20:15 21:00 22:00 23:00 Pulse 138 140 143 Resp 22 22 B/P (MAP) 81/55 (64) 102/60 (74) 97/61 (73) Pulse Ox 98 99 95 O2 Delivery Room Air Room Air Room Air Room Air 09/23/19 09/24/19 09/24/19 09/24/19 23:45 00:00 00:00 00:15 Temp 100.4 100.4 Pulse 142 Resp 22 B/P (MAP) 97/57 (70) Pulse Ox 95 94 95 O2 Delivery Room Air Room Air Room Air Room Air O2 Flow Rate 10.0 09/24/19 09/24/19 09/24/19 09/24/19 01:00 02:00 03:00 04:00 Temp 99.5 99.5 Pulse 138 136 134 129 Resp B/P (MAP) 107/65 (79) 99/64 (76) 92/54 (67) 89/56 (67) Pulse Ox 95 96 94 95 O2 Delivery Room Air Room Air Room Air Room Air 09/24/19 09/24/19 09/24/19 09/24/19 04:00 05:00 06:00 06:57 Pulse 130 132 Resp B/P (MAP) 90/61 (71) 99/71 (80) Pulse Ox 92 95 95 O2 Delivery Room Air Room Air Room Air Room Air O2 Flow Rate 10.0 09/24/19 09/24/19 09/24/19 09/24/19 07:00 08:00 08:00 09:00 Temp 99.1 99.1 Pulse 124 126 128 Resp B/P (MAP) 99/71 (80) 105/75 (85) 112/77 (89) Pulse Ox 95 95 95 O2 Delivery Room Air Room Air Room Air Room Air 09/24/19 09/24/19 09/24/19 09/24/19 10:00 11:00 11:20 11:35 Temp 100.2 100.2 100.2 100.2 100.2 100.2 Pulse 128 125 125 124 Resp 26 26 26 26 B/P (MAP) 84/55 (65) 88/54 (65) 84/55 88/54 Pulse Ox 95 95 O2 Delivery Room Air Room Air Intake and Output 09/23/19 09/23/19 09/24/19 15:00 23:00 07:00 Output Total 175 ml 200 ml 165 ml Balance -175 ml -200 ml -165 ml Hemodynamically unstable?: No Is patient in severe pain?: No Is NPO status required?: No JOVANY HARRISON MD Sep 24, 2019 12:04
--- NOTE | 2019-09-24 12:35 | RAD ---
CT abdomen and pelvis without contrast PQRS statement: CT scans at this facility use dose reduction including either automated exposure control, iterative reconstructions, and /or weight based radiation dosing via mA and kV modification when appropriate to reduce radiation dose to as low as reasonably achievable. HISTORY: Abdominal pain. Pancreatitis. Sepsis. COMPARISON: CT abdomen and pelvis September 14, 2019. Abdomen findings: Small right pleural effusion. Moderate to large left pleural effusion with volume loss collapse with atelectasis of most of the left lower lobe. This is similar the prior study. Nasogastric tube. The right percutaneous pigtail drainage catheter at the lower pararenal retroperitoneum on the prior exam has since been removed, no pneumoperitoneum or retroperitoneal soft tissue emphysema evident. Gallstone. 1.2 cm liver cyst stable. Mild right renal hydronephrosis renal pelvis diameter is 1 cm. Spleen, left kidney, adrenals unremarkable. Much of the density of the pancreas is absent at the proximal tail and body and head the distal tail is somewhat still present, this raises the probability of pancreatic necrosis from pancreatitis similar the prior exam, could be further assessed with postcontrast imaging. There is a dominant organized fluid collection surrounding the pancreas again demonstrated typical of pseudocyst with extensive multiloculated fluid collections within the retroperitoneum along the anterior and posterior pararenal spaces extending to the upper pelvis along the upper iliac crests again demonstrated, globally the size of the fluid collections are somewhat larger along the right anterior pararenal space is an posterior pararenal space, left-sided fluid collections are grossly stable. Bowel loops are displaced by these fluid collections. No bowel obstruction or inflammation evident. Appendix is negative. Pelvis findings: Mild dependent pelvic free fluid stable. Left lower quadrant perigastric contrast catheter is been removed. Bladder, rectum, uterus, ovaries and bones are unremarkable. IMPRESSION: 1. Removal of the percutaneous pigtail drainage catheters since the prior exam. Sequela of pancreatitis with extensive pseudocysts again demonstrated, the right-sided collections are slightly larger since the prior exam, the left-sided collections are stable. See above. 2. Moderate to large left pleural effusion with atelectasis and collapse of most of the left lower lobe, stable. Small right pleural effusion is stable. 3. Gallstone. Electronically signed by: Reece Carr MD (09/24/2019 12:32 PM) [id number]
[2019-09-24 13:14] LABS: HEMATOCRIT 22.1 % (36.0-47.0); HEMOGLOBIN 7.2 g/dL (12.0-15.5); RED BLOOD COUNT 2.48 x10^6/uL (3.50-5.40); RED CELL DISTRIBUTION WIDTH 19.5 % (11.5-14.5); WHITE BLOOD COUNT 16.9 x10^3/uL (4.0-11.0)
[2019-09-24 16:49] LABS: BASE EXCESS ABG -4 mmol/L (-3-3); FIO2 ABG 21; HCO3 ABG 22 mmol/L (21-28); PCO2 ABG 39 mmHg (35-46); PO2 ABG 53 mmHg (75-108); SAT O2 ABG 82 % (92-99)
[2019-09-24] MEDS: ENOXAPARIN 40 MG/0.4 ML SYRINGE. SQ SCH (17:00)
--- NOTE | 2019-09-24 17:00 | NUR ---
Shift report- Morning assessment, pt very lethargic, will respond to yes/no commands. Lg amount of brown, old blood out of right drain site, approx 150ml. Colton at bedside view dressing and drain site with nurse- Orders per Alfonso to given 500ml Albumin, hgb 7.0 1uPRBC given, recheck 7.2-another 1uPRBC given recheck 9.1 1430 Fentanyl patch removed-Narcan given, pt woke up and started vomiting lg amount of green bile, suctioned-placed on trach shield-blood gas called to Dr Hamilton-see results. Pt anxious, hands shaking post vomit. Attempted to calm down, low grade fever, BP SBP low 100's, zofran given. 1700 Jamaal at bedside, pt still lethargic but will wake to name. Narcan given, no change in mentation. Dressing changed, saturated with lg amount of brown old blood. Pt has low grade temp 100.4, apllied fan and cool wash cloth- Jamaal at bedside. All questions answered, Jamaal agrees with plan of care.
[2019-09-24 18:37] LABS: HEMATOCRIT 27.2 % (36.0-47.0); HEMOGLOBIN 9.1 g/dL (12.0-15.5); RED BLOOD COUNT 3.07 x10^6/uL (3.50-5.40); WHITE BLOOD COUNT 18.7 x10^3/uL (4.0-11.0)
[2019-09-24] MEDS: ACETAMINOPHEN 650 MG SUPP.RECT. PR PRN (19:52)
[2019-09-24] MEDS ORDERED: TOTAL PARENTERAL NUTRITION IV SCH ×8 (22:00)
[2019-09-24] MEDS ORDERED: [UNRECOGNIZED DRUG - OTHER] IV SCH ×8 (22:00)
[2019-09-24] MEDS ORDERED: AMINO ACID IV SCH ×8 (22:00)
[2019-09-24] MEDS ORDERED: DEXTROSE 70% IV SCH ×8 (22:00)
[2019-09-24] MEDS: PROCHLORPERAZINE 10 MG/2 ML VIAL. IV PRN (22:21)
[2019-09-25] VITALS (50 sets, daily range): BP systolic 80–152; BP diastolic 41–77
[2019-09-25] MEDS: INSULIN LISPRO 300 UNITS/3 ML VIAL. SQ SCH ×4 (00:30→19:06)
[2019-09-25] MEDS: ONDANSETRON PF 4 MG/2 ML VIAL. IV PRN ×2 (00:51→05:18)
[2019-09-25] MEDS: ACETAMINOPHEN 650 MG SUPP.RECT. PR PRN ×2 (05:18→14:41)
[2019-09-25 05:25] LABS: BASO % 0 % (0-3); EOS % 0 % (0-3); HEMATOCRIT 27.3 % (36.0-47.0); HEMOGLOBIN 8.7 g/dL (12.0-15.5); LYMPH # 1.7 x10^3/uL (1.0-4.8); LYMPH % 8 % (24-48); MEAN CORPUSCULAR HEMOGLOBIN 29 pg (25-35); MEAN CORPUSCULAR HGB CONC 32 g/dL (31-37); MEAN CORPUSCULAR VOLUME 89 fL (79-100); MONO # 0.6 x10^3/uL (0.0-1.1); MONO % 3 % (0-9); NEUT # 17.6 x10^3/uL (1.8-7.7); NEUT % 88 % (31-73); PLATELET COUNT 451 x10^3/uL (140-400); RED BLOOD COUNT 3.06 x10^6/uL (3.50-5.40); RED CELL DISTRIBUTION WIDTH 18.5 % (11.5-14.5)
[2019-09-25 05:37] LABS: ALBUMIN 1.8 g/dL (3.4-5.0); ALBUMIN/GLOBULIN RATIO 0.4 (1.0-1.7); CALCIUM 10.8 mg/dL (8.5-10.1); CREATININE 1.9 mg/dL (0.6-1.0); GFR 28.1; POTASSIUM 5.3 mmol/L (3.5-5.1); TOTAL BILIRUBIN 0.6 mg/dL (0.2-1.0); TOTAL PROTEIN 6.3 g/dL (6.4-8.2)
[2019-09-25] MEDS: NOREPINEPHRINE VIAL 8 MG in IV DEXTROSE 5% 250 ML IV PRN ×2 (06:33→21:46)
--- NOTE | 2019-09-25 07:25 | NUR ---
Pt vomited multiple times throughout this shift. Nausea and vomiting resolved for short periods of time with PRN Zofran x2 and PRN Compazine x1. Within the last hour, pts old right abd KAYLIN drain sites began to drain profusely. Drainage red/brown in color. Dressing has been changed x3. Pt mental status noticeably declined throughout the shift. Pt had temperature of 102.2F at beginning of the shift, resolved with Tylenol. Pt again had temperature of 102.2F with morning temperature, again treated with Tylenol. Pts blood pressure then dropped this morning, 77/44. Call placed to on-call physician, Dr. Sewell. Received orders to start titratable Levophed, draw lactic acid, call Critical Care MD. Call then placed to Dr. Hamilton. Received orders to stop Lovenox, repeat Hgb at 1200. Last call placed to Dr. Segura. MD stated to continue supporting BP at this time with Levophed, replace blood per protocol, draw coagulation labs. Orders all entered into system and initiated. Pt is currently resting with eyes closed and call light within reach. Pts current BP 98/54. Will pass on and continue to monitor.
[2019-09-25] MEDS ORDERED: ALBUMIN HUMAN 5% 500 ML IV ONE (08:15)
[2019-09-25 08:22] LABS: HEMOGLOBIN 8.3 g/dL (12.0-15.5)
[2019-09-25] MEDS: TPN PER PHARMACY MC PRN (08:44)
--- NOTE | 2019-09-25 08:55 | PDOC ---
PULMONARY PROGRESS NOTES Subjective Patient intubated on 07/10 , s/p trach 07/24, transferred back to ICU 09/22 for syncope with collapse On going Anemia, blood drainage from RLQ abdomen drain site, and surrounding firmness On low dose levo for hypotension s/p IVF boluses/ albumin given Vitals Vital Signs Date Time Temp Pulse Resp B/P (MAP) Pulse Ox O2 Delivery O2 Flow Rate FiO2 09/25/19 08:00 Venturi Mask 15.0 09/25/19 08:00 137 28 81/55 (64) 100 09/25/19 04:00 102.2 102.2 General: No acute distress, Lethargic Lungs: Other (diminshed in bases, Rhonci in LLL) Cardiovascular: S1, S2 Abdomen: Soft, Non-tender, Other (bleeding from Sx. site RLQ and firmness) Extremities: Other (+1 BLE edema) Skin: Warm, Dry Labs Laboratory Tests Test 09/23/19 09:42 09/23/19 12:26 09/23/19 16:00 09/23/19 17:45 Glucose (Fingerstick) 177 mg/dL (70-99) 220 mg/dL (70-99) 209 mg/dL (70-99) White Blood Count 32.2 x10^3/uL (4.0-11.0) Red Blood Count 2.97 x10^6/uL (3.50-5.40) Hemoglobin 8.4 g/dL (12.0-15.5) Hematocrit 28.3 % (36.0-47.0) Mean Corpuscular Volume 95 fL (79-100) Mean Corpuscular Hemoglobin 28 pg (25-35) Mean Corpuscular Hemoglobin Concent 30 g/dL (31-37) Red Cell Distribution Width 20.8 % (11.5-14.5) Platelet Count 787 x10^3/uL (140-400) Sodium Level 151 mmol/L (136-145) Potassium Level 4.6 mmol/L (3.5-5.1) Chloride Level 113 mmol/L (98-107) Carbon Dioxide Level 19 mmol/L (21-32) Anion Gap 19 (6-14) Blood Urea Nitrogen 58 mg/dL (7-20) Creatinine 1.8 mg/dL (0.6-1.0) Estimated GFR (Cockcroft-Gault) 29.9 BUN/Creatinine Ratio 32 (6-20) Glucose Level 241 mg/dL (70-99) Calcium Level 11.0 mg/dL (8.5-10.1) Total Bilirubin 0.5 mg/dL (0.2-1.0) Aspartate Amino Transf (AST/SGOT) 31 U/L (15-37) Alanine Aminotransferase (ALT/SGPT) 23 U/L (14-59) Alkaline Phosphatase 131 U/L (46-116) Total Protein 7.0 g/dL (6.4-8.2) Albumin 1.9 g/dL (3.4-5.0) Albumin/Globulin Ratio 0.4 (1.0-1.7) Prothrombin Time 15.3 SEC (11.7-14.0) Prothromb Time International Ratio 1.3 (0.8-1.1) Lactic Acid Level 1.9 mmol/L (0.4-2.0) Test 09/23/19 23:35 09/24/19 05:53 09/24/19 05:55 09/24/19 06:45 Glucose (Fingerstick) 178 mg/dL (70-99) 216 mg/dL (70-99) Sodium Level 147 mmol/L (136-145) Potassium Level 5.1 mmol/L (3.5-5.1) Chloride Level 113 mmol/L (98-107) Carbon Dioxide Level 26 mmol/L (21-32) Anion Gap 8 (6-14) Blood Urea Nitrogen 69 mg/dL (7-20) Creatinine 1.9 mg/dL (0.6-1.0) Estimated GFR (Cockcroft-Gault) 28.1 Glucose Level 240 mg/dL (70-99) Calcium Level 10.4 mg/dL (8.5-10.1) Phosphorus Level 4.0 mg/dL (2.6-4.7) Magnesium Level 2.4 mg/dL (1.8-2.4) Amylase Level 385 U/L (25-115) Lipase 563 U/L (73-393) White Blood Count 21.2 x10^3/uL (4.0-11.0) Red Blood Count 2.44 x10^6/uL (3.50-5.40) Hemoglobin 7.0 g/dL (12.0-15.5) Hematocrit 22.2 % (36.0-47.0) Mean Corpuscular Volume 91 fL (79-100) Mean Corpuscular Hemoglobin 29 pg (25-35) Mean Corpuscular Hemoglobin Concent 31 g/dL (31-37) Red Cell Distribution Width 21.0 % (11.5-14.5) Platelet Count 570 x10^3/uL (140-400) Neutrophils (%) (Auto) 85 % (31-73) Lymphocytes (%) (Auto) 11 % (24-48) Monocytes (%) (Auto) 4 % (0-9) Eosinophils (%) (Auto) 0 % (0-3) Basophils (%) (Auto) 0 % (0-3) Neutrophils # (Auto) 18.0 x10^3/uL (1.8-7.7) Lymphocytes # (Auto) 2.2 x10^3/uL (1.0-4.8) Monocytes # (Auto) 0.9 x10^3/uL (0.0-1.1) Eosinophils # (Auto) 0.1 x10^3/uL (0.0-0.7) Basophils # (Auto) 0.0 x10^3/uL (0.0-0.2) Test 09/24/19 13:06 09/24/19 13:53 09/24/19 16:30 09/24/19 18:12 White Blood Count 16.9 x10^3/uL (4.0-11.0) Red Blood Count 2.48 x10^6/uL (3.50-5.40) Hemoglobin 7.2 g/dL (12.0-15.5) Hematocrit 22.1 % (36.0-47.0) Mean Corpuscular Volume 89 fL (79-100) Mean Corpuscular Hemoglobin 29 pg (25-35) Mean Corpuscular Hemoglobin Concent 33 g/dL (31-37) Red Cell Distribution Width 19.5 % (11.5-14.5) Platelet Count 448 x10^3/uL (140-400) Glucose (Fingerstick) 216 mg/dL (70-99) 199 mg/dL (70-99) O2 Saturation 82 % (92-99) Arterial Blood pH 7.36 (7.35-7.45) Arterial Blood pCO2 at Patient Temp 39 mmHg (35-46) Arterial Blood pO2 at Patient Temp 53 mmHg (75-108) Arterial Blood HCO3 22 mmol/L (21-28) Arterial Blood Base Excess -4 mmol/L (-3-3) FiO2 21 Test 09/24/19 18:24 09/25/19 00:27 09/25/19 05:15 09/25/19 06:50 White Blood Count 18.7 x10^3/uL (4.0-11.0) 20.0 x10^3/uL (4.0-11.0) Red Blood Count 3.07 x10^6/uL (3.50-5.40) 3.06 x10^6/uL (3.50-5.40) Hemoglobin 9.1 g/dL (12.0-15.5) 8.7 g/dL (12.0-15.5) Hematocrit 27.2 % (36.0-47.0) 27.3 % (36.0-47.0) Mean Corpuscular Volume 89 fL (79-100) 89 fL (79-100) Mean Corpuscular Hemoglobin 30 pg (25-35) 29 pg (25-35) Mean Corpuscular Hemoglobin Concent 33 g/dL (31-37) 32 g/dL (31-37) Red Cell Distribution Width 18.0 % (11.5-14.5) 18.5 % (11.5-14.5) Platelet Count 476 x10^3/uL (140-400) 451 x10^3/uL (140-400) Glucose (Fingerstick) 247 mg/dL (70-99) Neutrophils (%) (Auto) 88 % (31-73) Lymphocytes (%) (Auto) 8 % (24-48) Monocytes (%) (Auto) 3 % (0-9) Eosinophils (%) (Auto) 0 % (0-3) Basophils (%) (Auto) 0 % (0-3) Neutrophils # (Auto) 17.6 x10^3/uL (1.8-7.7) Lymphocytes # (Auto) 1.7 x10^3/uL (1.0-4.8) Monocytes # (Auto) 0.6 x10^3/uL (0.0-1.1) Eosinophils # (Auto) 0.0 x10^3/uL (0.0-0.7) Basophils # (Auto) 0.0 x10^3/uL (0.0-0.2) Sodium Level 147 mmol/L (136-145) Potassium Level 5.3 mmol/L (3.5-5.1) Chloride Level 113 mmol/L (98-107) Carbon Dioxide Level 25 mmol/L (21-32) Anion Gap 9 (6-14) Blood Urea Nitrogen 74 mg/dL (7-20) Creatinine 1.9 mg/dL (0.6-1.0) Estimated GFR (Cockcroft-Gault) 28.1 BUN/Creatinine Ratio 39 (6-20) Glucose Level 241 mg/dL (70-99) Calcium Level 10.8 mg/dL (8.5-10.1) Total Bilirubin 0.6 mg/dL (0.2-1.0) Aspartate Amino Transf (AST/SGOT) 27 U/L (15-37) Alanine Aminotransferase (ALT/SGPT) 20 U/L (14-59) Alkaline Phosphatase 104 U/L (46-116) Total Protein 6.3 g/dL (6.4-8.2) Albumin 1.8 g/dL (3.4-5.0) Albumin/Globulin Ratio 0.4 (1.0-1.7) Prothrombin Time 16.0 SEC (11.7-14.0) Prothromb Time International Ratio 1.3 (0.8-1.1) Activated Partial Thromboplast Time 32 SEC (24-38) Lactic Acid Level 1.7 mmol/L (0.4-2.0) Test 09/25/19 08:08 Hemoglobin 8.3 g/dL (12.0-15.5) Hematocrit 26.0 % (36.0-47.0) Mean Corpuscular Hemoglobin Concent 32 g/dL (31-37) Laboratory Tests Test 09/24/19 13:06 09/24/19 13:53 09/24/19 16:30 09/24/19 18:12 White Blood Count 16.9 x10^3/uL (4.0-11.0) Red Blood Count 2.48 x10^6/uL (3.50-5.40) Hemoglobin 7.2 g/dL (12.0-15.5) Hematocrit 22.1 % (36.0-47.0) Mean Corpuscular Volume 89 fL (79-100) Mean Corpuscular Hemoglobin 29 pg (25-35) Mean Corpuscular Hemoglobin Concent 33 g/dL (31-37) Red Cell Distribution Width 19.5 % (11.5-14.5) Platelet Count 448 x10^3/uL (140-400) Glucose (Fingerstick) 216 mg/dL (70-99) 199 mg/dL (70-99) O2 Saturation 82 % (92-99) Arterial Blood pH 7.36 (7.35-7.45) Arterial Blood pCO2 at Patient Temp 39 mmHg (35-46) Arterial Blood pO2 at Patient Temp 53 mmHg (75-108) Arterial Blood HCO3 22 mmol/L (21-28) Arterial Blood Base Excess -4 mmol/L (-3-3) FiO2 21 Test 09/24/19 18:24 09/25/19 00:27 09/25/19 05:15 09/25/19 06:50 White Blood Count 18.7 x10^3/uL (4.0-11.0) 20.0 x10^3/uL (4.0-11.0) Red Blood Count 3.07 x10^6/uL (3.50-5.40) 3.06 x10^6/uL (3.50-5.40) Hemoglobin 9.1 g/dL (12.0-15.5) 8.7 g/dL (12.0-15.5) Hematocrit 27.2 % (36.0-47.0) 27.3 % (36.0-47.0) Mean Corpuscular Volume 89 fL (79-100) 89 fL (79-100) Mean Corpuscular Hemoglobin 30 pg (25-35) 29 pg (25-35) Mean Corpuscular Hemoglobin Concent 33 g/dL (31-37) 32 g/dL (31-37) Red Cell Distribution Width 18.0 % (11.5-14.5) 18.5 % (11.5-14.5) Platelet Count 476 x10^3/uL (140-400) 451 x10^3/uL (140-400) Glucose (Fingerstick) 247 mg/dL (70-99) Neutrophils (%) (Auto) 88 % (31-73) Lymphocytes (%) (Auto) 8 % (24-48) Monocytes (%) (Auto) 3 % (0-9) Eosinophils (%) (Auto) 0 % (0-3) Basophils (%) (Auto) 0 % (0-3) Neutrophils # (Auto) 17.6 x10^3/uL (1.8-7.7) Lymphocytes # (Auto) 1.7 x10^3/uL (1.0-4.8) Monocytes # (Auto) 0.6 x10^3/uL (0.0-1.1) Eosinophils # (Auto) 0.0 x10^3/uL (0.0-0.7) Basophils # (Auto) 0.0 x10^3/uL (0.0-0.2) Sodium Level 147 mmol/L (136-145) Potassium Level 5.3 mmol/L (3.5-5.1) Chloride Level 113 mmol/L (98-107) Carbon Dioxide Level 25 mmol/L (21-32) Anion Gap 9 (6-14) Blood Urea Nitrogen 74 mg/dL (7-20) Creatinine 1.9 mg/dL (0.6-1.0) Estimated GFR (Cockcroft-Gault) 28.1 BUN/Creatinine Ratio 39 (6-20) Glucose Level 241 mg/dL (70-99) Calcium Level 10.8 mg/dL (8.5-10.1) Total Bilirubin 0.6 mg/dL (0.2-1.0) Aspartate Amino Transf (AST/SGOT) 27 U/L (15-37) Alanine Aminotransferase (ALT/SGPT) 20 U/L (14-59) Alkaline Phosphatase 104 U/L (46-116) Total Protein 6.3 g/dL (6.4-8.2) Albumin 1.8 g/dL (3.4-5.0) Albumin/Globulin Ratio 0.4 (1.0-1.7) Prothrombin Time 16.0 SEC (11.7-14.0) Prothromb Time International Ratio 1.3 (0.8-1.1) Activated Partial Thromboplast Time 32 SEC (24-38) Lactic Acid Level 1.7 mmol/L (0.4-2.0) Test 09/25/19 08:08 Hemoglobin 8.3 g/dL (12.0-15.5) Hematocrit 26.0 % (36.0-47.0) Mean Corpuscular Hemoglobin Concent 32 g/dL (31-37) Medications Active Scripts Medications Dose Route/Sig Max Daily Dose Days Date Category Bisoprolol Fumarate 5 Mg Tablet 10 Mg PO DAILY 07/04/19 Reported Comments CXR 09/24/2019 IMPRESSION: Lines and tubes as described above. Left greater than right lower lobe opacities most likely pulmonary edema and left greater than right mild pleural effusions are stable. Superimposed left lower lobe pneumonia is not excluded. ct abdomen /pelvis 09/23 1. Removal of the percutaneous pigtail drainage catheters since the prior exam. Sequela of pancreatitis with extensive pseudocysts again demonstrated, the right-sided collections are slightly larger since the prior exam, the left-sided collections are stable. See above. 2. Moderate to large left pleural effusion with atelectasis and collapse of most of the left lower lobe, stable. Small right pleural effusion is stable. 3. Gallstone. Impression . IMPRESSION: 1. Acute hypoxemic respiratory failure secondary to ARDS status post trach,stable on minimal O2 2. Gallstone pancreatitis, now with ongoing bleeding from prior drain. Anemic. s/p Tx 2 units, hypotensive, possible septic again (increase wbc, hypotension) 3. Severe metabolic acidosis.stable 4. Acute kidney injury-, Off HD--renal function decling. suspect JUANA on CKD due to hypotension 5. Acute gallstone pancreatitis. 6. Hypoalbuminemia. 7. Moderate persistent effusions, s/p left thora 08/29, reaccumulation of left effusion. O2 requirement not changed. will benefit from repeat thora in am 8. New Fever- ,hypotension. suspect recurrent sepsis/ likely pancreatic source. Per ID, per surgery-- 9. Chronic anemia-- ongoing / s/p PRBC 10. Covid 19 testing negative 11. Moderate to large ascites-S/P paracentisis 12.S/P paracentisis with 4 liters removed on 08/03/19 13. S/P IR drain placement on 08/26/2019, removal 14. Depression/Anxiety 1 Plan . 1.Continue supplemental oxygen via trach shield-- PMV/capping as tolerated/ prn suction. 2. d/w surgery Dr Segura regarding bleeding from drain/ hypotension. Rec supportive care. Will consult IR. Tx and low dose levo/ aggressive IVF/albumin 3. Follow surgery recs-- Acute pancreatitis with persistent necrosis ---- 08/14 status post KAYLIN drain placement + C paropsilosis; 08/23 + yeast & high amylase; s/p additional drains on 08/25, removal of drains and now increase pseudocyst and increase fluid collection. likely infected fluid/ sepsis. Initiate BS abx. 4. Follow ID recs for ABX-- currently off ABX leukocytosis . ID following. consider adding back Abx 5. Follow nephrology recs --- cr. is worsening / IVF and monitor 6. Continue TPN 7. monitor HGB, transfuse 1 unit again today, had 2 units 09/[address] abdomen reviewed. will arrange another thoracentesis in am 9. Check amalyse and lipase, 10. s/p thoracentesis, 08/29, 3 litres removed 11. d/w IR in detail cct 35 min DVT/GI PPX: / protonix--- holding lovenox 2/2 anemia PT/OT D/W RN addend: d/w Dr Segura again. Informed about persistent bloody drainage from previous drain sites. He will ask IR again to place new drains as she is likely becoming septic from abdominal source. ? Hemorrhage within enlarging pancreatic pseudocyst/ severe necrotic pancrease. Not a surgical candidate. Prognosis poor. IVNAYAK LANDRUM MD Sep 25, 2019 08:55
--- NOTE | 2019-09-25 09:00 | NUR ---
Text sent to DR Hamilton regarding pooling blood out of right side drain site, dressing completely saturated with dark brown/red blood. Physician is going to place a call to [place]. Dr Hamilton at bedside, orders to given 500ml bolus of albumin and 1uPRBC. BP labile on Levophed SBP 90's-160's-orders to have anesthesia place bedside artline.
[2019-09-25] MEDS ORDERED: MEROPENEM 1 GM in IV NORMAL SALINE 100ML 100 ML IV SCH ×2 (10:00→14:00)
[2019-09-25] MEDS ORDERED: IV NORMAL SALINE 1000ML BAG 1,000 ML IV ONE (10:45)
[2019-09-25] MEDS: PROCHLORPERAZINE 10 MG/2 ML VIAL. IV PRN (11:00)
[2019-09-25] MEDS: PANTOPRAZOLE IV PUSH 40 MG VIAL. IVP SCH (11:01)
--- NOTE | 2019-09-25 11:18 | PDOC ---
Infectious Disease Note Subjective Subjective Patient's condition worsened. Lethargic s/p narcan Hypotensive s/p IVF, albumin and now on levophed Persistent fevers, Tmax 102.2 Started on Meropenem Multiple episodes of vomiting Bile reported from trach site 15L via VM over trach. Satting 98% Undergoing another PRBC transfusion Increase Cr 1.9, UO adequate ROS ROS unobtainable Vital Sign Vital Signs Vital Signs Date Time Temp Pulse Resp B/P (MAP) Pulse Ox O2 Delivery O2 Flow Rate FiO2 09/25/19 08:00 Venturi Mask 15.0 09/25/19 08:00 137 28 81/55 (64) 100 09/25/19 04:00 102.2 102.2 Physical Exam PHYSICAL EXAM GENERAL: Propped up in bed, lethargic, weak HEENT: NGT in place. Oral mucosa dry NECK: Tracheostomy LUNGS: Diminished aeration bases, no accessory muscle use HEART: S1, S2, tachy, regular ABDOMEN: Mild distention, bowel sounds present, soft, grimaces to palpation Right lateral side somewhat firm and bleeding from previous drain site. 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: Lethargic LUE-PICC (09/15) without signs of complications Labs Lab Laboratory Tests Test 09/24/19 13:06 09/24/19 13:53 09/24/19 16:30 09/24/19 18:12 White Blood Count 16.9 x10^3/uL (4.0-11.0) Red Blood Count 2.48 x10^6/uL (3.50-5.40) Hemoglobin 7.2 g/dL (12.0-15.5) Hematocrit 22.1 % (36.0-47.0) Mean Corpuscular Volume 89 fL (79-100) Mean Corpuscular Hemoglobin 29 pg (25-35) Mean Corpuscular Hemoglobin Concent 33 g/dL (31-37) Red Cell Distribution Width 19.5 % (11.5-14.5) Platelet Count 448 x10^3/uL (140-400) Glucose (Fingerstick) 216 mg/dL (70-99) 199 mg/dL (70-99) O2 Saturation 82 % (92-99) Arterial Blood pH 7.36 (7.35-7.45) Arterial Blood pCO2 at Patient Temp 39 mmHg (35-46) Arterial Blood pO2 at Patient Temp 53 mmHg (75-108) Arterial Blood HCO3 22 mmol/L (21-28) Arterial Blood Base Excess -4 mmol/L (-3-3) FiO2 21 Test 09/24/19 18:24 09/25/19 00:27 09/25/19 05:15 09/25/19 06:50 White Blood Count 18.7 x10^3/uL (4.0-11.0) 20.0 x10^3/uL (4.0-11.0) Red Blood Count 3.07 x10^6/uL (3.50-5.40) 3.06 x10^6/uL (3.50-5.40) Hemoglobin 9.1 g/dL (12.0-15.5) 8.7 g/dL (12.0-15.5) Hematocrit 27.2 % (36.0-47.0) 27.3 % (36.0-47.0) Mean Corpuscular Volume 89 fL (79-100) 89 fL (79-100) Mean Corpuscular Hemoglobin 30 pg (25-35) 29 pg (25-35) Mean Corpuscular Hemoglobin Concent 33 g/dL (31-37) 32 g/dL (31-37) Red Cell Distribution Width 18.0 % (11.5-14.5) 18.5 % (11.5-14.5) Platelet Count 476 x10^3/uL (140-400) 451 x10^3/uL (140-400) Glucose (Fingerstick) 247 mg/dL (70-99) Neutrophils (%) (Auto) 88 % (31-73) Lymphocytes (%) (Auto) 8 % (24-48) Monocytes (%) (Auto) 3 % (0-9) Eosinophils (%) (Auto) 0 % (0-3) Basophils (%) (Auto) 0 % (0-3) Neutrophils # (Auto) 17.6 x10^3/uL (1.8-7.7) Lymphocytes # (Auto) 1.7 x10^3/uL (1.0-4.8) Monocytes # (Auto) 0.6 x10^3/uL (0.0-1.1) Eosinophils # (Auto) 0.0 x10^3/uL (0.0-0.7) Basophils # (Auto) 0.0 x10^3/uL (0.0-0.2) Sodium Level 147 mmol/L (136-145) Potassium Level 5.3 mmol/L (3.5-5.1) Chloride Level 113 mmol/L (98-107) Carbon Dioxide Level 25 mmol/L (21-32) Anion Gap 9 (6-14) Blood Urea Nitrogen 74 mg/dL (7-20) Creatinine 1.9 mg/dL (0.6-1.0) Estimated GFR (Cockcroft-Gault) 28.1 BUN/Creatinine Ratio 39 (6-20) Glucose Level 241 mg/dL (70-99) Calcium Level 10.8 mg/dL (8.5-10.1) Total Bilirubin 0.6 mg/dL (0.2-1.0) Aspartate Amino Transf (AST/SGOT) 27 U/L (15-37) Alanine Aminotransferase (ALT/SGPT) 20 U/L (14-59) Alkaline Phosphatase 104 U/L (46-116) Total Protein 6.3 g/dL (6.4-8.2) Albumin 1.8 g/dL (3.4-5.0) Albumin/Globulin Ratio 0.4 (1.0-1.7) Prothrombin Time 16.0 SEC (11.7-14.0) Prothromb Time International Ratio 1.3 (0.8-1.1) Activated Partial Thromboplast Time 32 SEC (24-38) Lactic Acid Level 1.7 mmol/L (0.4-2.0) Test 09/25/19 08:08 Hemoglobin 8.3 g/dL (12.0-15.5) Hematocrit 26.0 % (36.0-47.0) Mean Corpuscular Hemoglobin Concent 32 g/dL (31-37) CT A/P, 09/23 IMPRESSION: 1. Removal of the percutaneous pigtail drainage catheters since the prior exam. Sequela of pancreatitis with extensive pseudocysts again demonstrated, the right-sided collections are slightly larger since the prior exam, the left-sided collections are stable. See above. 2. Moderate to large left pleural effusion with atelectasis and collapse of most of the left lower lobe, stable. Small right pleural effusion is stable. 3. Gallstone. Objective Assessment Sepsis with hypotension. Now on levophed Fevers. Previous BC, UC and cath tip neg. Leukocytosis - trending up Gallstone pancreatitis with necrosis. -CT A/P 09/23 showed multiple pseudocysts, slight larger on the right. -s/p drain 08/14. C. parapsilosis. s/p drain 08/23 + yeast & high amylase; s/p additional drain on 08/25. Drains now removed. Ascites s/p paracentesis 08/02 & 08/23. C. parapsilosis JUANA. off HD. Cr worse today Anemia - s/p PRBCs Pleural effusions s/p left thoracentesis, 08/29. no culture. Respiratory failure s/p tracheotomy N/V Prediabetes HTN Plan Plan of Care BC x 2 UA C&S Change Lind cath Continue meropenem, dose adjusted for renal function add micafungin Monitor lab values/VS Maintain aspiration precaution Supportive care Critically ill D/w nursing D/w Dr. Hamilton also add Dapto Patient seen. Chart reviewed. Case discussed with TERRAZZO LAYER HELPER. Agree with above plan/. FRANCA HOBSON APRN Sep 25, 2019 11:18 GERMAN TORRES MD Sep 25, 2019 20:37
--- NOTE | 2019-09-25 12:02 | PDOC ---
GENERAL General: Patient examined chart reviewed discussed with nursing. Unfortunately patient continues to clinically decline today with more hypotension, increasing tachycardia, and fever. CT abdomen pelvis notable for the severe pancreatitis with massive pseudocysts and question of necrosis, no obvious hematoma noted though patient continues to bleed from her old drainage tube site. Repeat urinalysis, blood culture were drawn today. Patient also has a large left pleural effusion which is most likely sequelae of the severe pancreatitis and fluid shifts. Appreciate subspecialty support. Discussions are ongoing with family regarding goals of care and obviously very challenging given her young age and prior healthy baseline. We will continue current regimen otherwise. Total time today is 30 minutes with greater than 50% in counseling and coordination of care most of which in discussion with nursing and extensive review of records Problems: (1) Chronic progressive renal failure, stage 3 (moderate) (2) Acute blood loss anemia (3) Gallstone pancreatitis (4) Tracheostomy dependence (5) Chronic respiratory failure (6) Sepsis VITAL SIGNS Vital Signs/I&O: Vital Signs Date Time Temp Pulse Resp B/P (MAP) Pulse Ox O2 Delivery O2 Flow Rate FiO2 09/25/19 11:00 133 30 113/66 (82) 100 Venturi Mask 15.0 09/25/19 08:30 100.2 100.2 I & O 09/24/19 09/24/19 09/25/19 15:00 23:00 07:00 Intake Total 550 ml 2087 ml Output Total 415 ml 375 ml 505 ml Balance -415 ml 175 ml 1582 ml Patient is sleeping does not arouse on my evaluation today she appears comfortable HEENT exam is unremarkable for acute abnormality Neck is soft and supple no adenopathy or thyromegaly noted Chest bilateral equal air entry though diminished throughout no crackles or wheezes are noted Heart S1-S2 normal tachycardic no murmurs or gallops are noted Abdomen is distended absent bowel sounds no masses organomegaly noted Extremity exam is unremarkable for acute abnormality ALLERGIES Allergies: Allergies Coded Allergies Type Severity Reaction Last Updated Verified codeine Allergy Intermediate rash 07/04/19 Yes MEDS Medications: Current Medications Medications (Trade) Dose Ordered Sig/Yvon Route PRN Reason Start Time Stop Time Status Last Admin Dose Admin Potassium Acetate 60 meq/Magnesium Sulfate 5 meq/ Multivitamins 10 ml/Chromium/ Copper/Manganese/ Seleni/Zn 1 ml/ Insulin Human Regular 30 unit/ Total Parenteral Nutrition/Amino Acids/Dextrose/ Fat Emulsion Intravenous 1,920 ml @ 80 mls/hr TPN CONT IV 09/24/19 22:00 09/25/19 21:59 09/24/19 21:54 Norepinephrine Bitartrate 8 mg/ Dextrose 258 ml @ 13.332 mls/ hr CONT PRN IV PER PROTOCOL 09/25/19 06:30 09/25/19 06:33 Albumin Human 500 ml @ 125 mls/hr 1X ONCE IV 09/25/19 08:15 09/25/19 12:14 09/25/19 08:10 Meropenem 1 gm/ Sodium Chloride 100 ml @ 200 mls/hr Q8HRS IV 09/25/19 10:00 09/25/19 13:00 09/25/19 11:04 Sodium Chloride 1,000 ml @ 1,000 mls/hr 1X ONCE IV 09/25/19 10:45 09/25/19 11:44 DC 09/25/19 11:06 LAB Lab: Laboratory Tests Test 09/24/19 13:06 09/24/19 13:53 09/24/19 16:30 09/24/19 18:12 White Blood Count 16.9 x10^3/uL (4.0-11.0) H Red Blood Count 2.48 x10^6/uL (3.50-5.40) L Hemoglobin 7.2 g/dL (12.0-15.5) L Hematocrit 22.1 % (36.0-47.0) L Mean Corpuscular Volume 89 fL (79-100) Mean Corpuscular Hemoglobin 29 pg (25-35) Mean Corpuscular Hemoglobin Concent 33 g/dL (31-37) Red Cell Distribution Width 19.5 % (11.5-14.5) H Platelet Count 448 x10^3/uL (140-400) H Glucose (Fingerstick) 216 mg/dL (70-99) H 199 mg/dL (70-99) H O2 Saturation 82 % (92-99) L Arterial Blood pH 7.36 (7.35-7.45) Arterial Blood pCO2 at Patient Temp 39 mmHg (35-46) Arterial Blood pO2 at Patient Temp 53 mmHg (75-108) L Arterial Blood HCO3 22 mmol/L (21-28) Arterial Blood Base Excess -4 mmol/L (-3-3) L FiO2 21 Test 09/24/19 18:24 09/25/19 00:27 09/25/19 05:15 09/25/19 06:50 White Blood Count 18.7 x10^3/uL (4.0-11.0) H 20.0 x10^3/uL (4.0-11.0) H Red Blood Count 3.07 x10^6/uL (3.50-5.40) L 3.06 x10^6/uL (3.50-5.40) L Hemoglobin 9.1 g/dL (12.0-15.5) L 8.7 g/dL (12.0-15.5) L Hematocrit 27.2 % (36.0-47.0) L 27.3 % (36.0-47.0) L Mean Corpuscular Volume 89 fL (79-100) 89 fL (79-100) Mean Corpuscular Hemoglobin 30 pg (25-35) 29 pg (25-35) Mean Corpuscular Hemoglobin Concent 33 g/dL (31-37) 32 g/dL (31-37) Red Cell Distribution Width 18.0 % (11.5-14.5) H 18.5 % (11.5-14.5) H Platelet Count 476 x10^3/uL (140-400) H 451 x10^3/uL (140-400) H Glucose (Fingerstick) 247 mg/dL (70-99) H Neutrophils (%) (Auto) 88 % (31-73) H Lymphocytes (%) (Auto) 8 % (24-48) L Monocytes (%) (Auto) 3 % (0-9) Eosinophils (%) (Auto) 0 % (0-3) Basophils (%) (Auto) 0 % (0-3) Neutrophils # (Auto) 17.6 x10^3/uL (1.8-7.7) H Lymphocytes # (Auto) 1.7 x10^3/uL (1.0-4.8) Monocytes # (Auto) 0.6 x10^3/uL (0.0-1.1) Eosinophils # (Auto) 0.0 x10^3/uL (0.0-0.7) Basophils # (Auto) 0.0 x10^3/uL (0.0-0.2) Sodium Level 147 mmol/L (136-145) H Potassium Level 5.3 mmol/L (3.5-5.1) H Chloride Level 113 mmol/L (98-107) H Carbon Dioxide Level 25 mmol/L (21-32) Anion Gap 9 (6-14) Blood Urea Nitrogen 74 mg/dL (7-20) H Creatinine 1.9 mg/dL (0.6-1.0) H Estimated GFR (Cockcroft-Gault) 28.1 BUN/Creatinine Ratio 39 (6-20) H Glucose Level 241 mg/dL (70-99) H Calcium Level 10.8 mg/dL (8.5-10.1) H Total Bilirubin 0.6 mg/dL (0.2-1.0) Aspartate Amino Transferase (AST) 27 U/L (15-37) Alanine Aminotransferase (ALT) 20 U/L (14-59) Alkaline Phosphatase 104 U/L (46-116) Total Protein 6.3 g/dL (6.4-8.2) L Albumin 1.8 g/dL (3.4-5.0) L Albumin/Globulin Ratio 0.4 (1.0-1.7) L Prothrombin Time 16.0 SEC (11.7-14.0) H Prothrombin Time INR 1.3 (0.8-1.1) H Activated Partial Thromboplast Time 32 SEC (24-38) Lactic Acid Level 1.7 mmol/L (0.4-2.0) Test 09/25/19 08:08 Hemoglobin 8.3 g/dL (12.0-15.5) L Hematocrit 26.0 % (36.0-47.0) L Mean Corpuscular Hemoglobin Concent 32 g/dL (31-37) Laboratory Tests 09/24/19 13:06 09/24/19 18:24 09/25/19 05:15 09/25/19 08:08 Laboratory Tests 09/25/19 05:15 IMAGING Imaging: PATIENT: SCOTT CUELLAR ACCOUNT: [id number] : 1970 LOCATION: [address] [place] [address] AGE: 48 SEX: F EXAM STATUS: ADM IN ORD. PHYSICIAN: VINAYAK LANDRUM MD REASON: abd pain PANCREATITIS, SEPSIS ICU EXT [id number] PROCEDURE: CT ABDOMEN PELVIS WO CONTRAST CT abdomen and pelvis without contrast PQRS statement: CT scans at this facility use dose reduction including either automated exposure control, iterative reconstructions, and /or weight based radiation dosing via mA and kV modification when appropriate to reduce radiation dose to as low as reasonably achievable. HISTORY: Abdominal pain. Pancreatitis. Sepsis. COMPARISON: CT abdomen and pelvis September 14, 2019. Abdomen findings: Small right pleural effusion. Moderate to large left pleural effusion with volume loss collapse with atelectasis of most of the left lower lobe. This is similar the prior study. Nasogastric tube. The right percutaneous pigtail drainage catheter at the lower pararenal retroperitoneum on the prior exam has since been removed, no pneumoperitoneum or retroperitoneal soft tissue emphysema evident. Gallstone. 1.2 cm liver cyst stable. Mild right renal hydronephrosis renal pelvis diameter is 1 cm. Spleen, left kidney, adrenals unremarkable. Much of the density of the pancreas is absent at the proximal tail and body and head the distal tail is somewhat still present, this raises the probability of pancreatic necrosis from pancreatitis similar the prior exam, could be further assessed with postcontrast imaging. There is a dominant organized fluid collection surrounding the pancreas again demonstrated typical of pseudocyst with extensive multiloculated fluid collections within the retroperitoneum along the anterior and posterior pararenal spaces extending to the upper pelvis along the upper iliac crests again demonstrated, globally the size of the fluid collections are somewhat larger along the right anterior pararenal space is an posterior pararenal space, left-sided fluid collections are grossly stable. Bowel loops are displaced by these fluid collections. No bowel obstruction or inflammation evident. Appendix is negative. Pelvis findings: Mild dependent pelvic free fluid stable. Left lower quadrant perigastric contrast catheter is been removed. Bladder, rectum, uterus, ovaries and bones are unremarkable. IMPRESSION: 1. Removal of the percutaneous pigtail drainage catheters since the prior exam. Sequela of pancreatitis with extensive pseudocysts again demonstrated, the right-sided collections are slightly larger since the prior exam, the left-sided collections are stable. See above. 2. Moderate to large left pleural effusion with atelectasis and collapse of most of the left lower lobe, stable. Small right pleural effusion is stable. 3. Gallstone. Electronically signed by: Joann Carr MD (09/24/2019 12:32 PM) [id number] DICTATED and SIGNED BY: JOANN CARR MD DATE: 09/24/19 1232 ASSESSMENT & PLAN A&P Plan as noted above This note was created using [employer] and may have omissions and/or errors due to the nature of real-time voice gold nib grinder. Hemodynamically unstable?: No Is patient in severe pain?: No Is NPO status required?: No Problem Qualifiers (1) Sepsis: Sepsis type: sepsis due to unspecified organism Sepsis acute organ dysfunction status: with acute organ dysfunction Severe sepsis acute organ dysfunction t ype: unspecified Severe sepsis shock status: unspecified Qualified Codes: A41.9 - Sepsis, unspecified organism; R65.20 - Severe sepsis without septic shock MAISHA CONTEH MD Sep 25, 2019 12:02
[2019-09-25 12:25] LABS: BILIRUBIN,URINE NEGATIVE (NEG); CLARITY,URINE CLOUDY; COLOR,URINE YELLOW; NITRITE,URINE NEGATIVE (NEG); PROTEIN,URINE 30 mg/dL (NEG-TRACE); UROBILINOGEN,URINE 0.2 mg/dL (0.2 mg/dL)
[2019-09-25 12:40] LABS: RBC,URINE 0 /HPF (0-2)
[2019-09-25 12:41] LABS: AMORPHOUS SEDIMENT,UR PRESENT /HPF; BACTERIA,URINE FEW /HPF (0-FEW); GRANULAR CASTS,URINE MANY /HPF; HYALINE CASTS, URINE MANY /HPF; SQUAMOUS EPITHELIAL CELL,UR MOD /LPF
[2019-09-25 12:42] LABS: YEAST,URINE PRESENT /HPF
--- NOTE | 2019-09-25 13:00 | NUR ---
Dressing change #2, completely saturated and pooling in bed. Dr Hamilton contacted again for further orders and direction. Orders for albumin and NS bolus initiated. Stated he would call [facility]. 1430 Pt mentation decreased will only open eyes, temp 103.6, rectal tylenol given. 1510 Pt left with IR for CT guided drain placement, updated family (Marce and Jamaal)
[2019-09-25 13:46] LABS: HEMATOCRIT 28.9 % (36.0-47.0); HEMOGLOBIN 9.6 g/dL (12.0-15.5); RED BLOOD COUNT 3.23 x10^6/uL (3.50-5.40); WHITE BLOOD COUNT 20.9 x10^3/uL (4.0-11.0)
[2019-09-25] MEDS: MICAFUNGIN 100 MG in IV DEXTROSE 5% 100ML 100 ML IV SCH (14:12)
[2019-09-25] MEDS: DAPTOmycin (GENERIC) IVPB 410 MG in IV NORMAL SALINE 50ML 50 ML IV SCH (14:14)
[2019-09-25] MEDS: fentaNYL PF VIAL 100 MCG/2 ML VIAL IVP PRN (14:39)
[2019-09-25] MEDS ORDERED: MIDAZOLAM HCL/PF 2 MG/2 ML VIAL. ONE (14:47)
[2019-09-25] MEDS ORDERED: fentaNYL PF VIAL 100 MCG/2 ML VIAL ONE (14:47)
[2019-09-25] MEDS ORDERED: NALOXONE 0.4 MG/ML VIAL. ONE (14:48)
[2019-09-25] MEDS ORDERED: LIDOCAINE 1% Multi-Dose 20 ML VIAL. ONE (14:48)
[2019-09-25] MEDS ORDERED: FLUMAZENIL 0.5 MG/5 ML VIAL. IV ONE (14:48)
[2019-09-25] MEDS ORDERED: fentaNYL PF VIAL 100 MCG/2 ML VIAL IV ONE (15:00)
[2019-09-25] MEDS ORDERED: LIDOCAINE 1% Multi-Dose 20 ML VIAL. INJ ONE (15:00)
[2019-09-25] MEDS ORDERED: MIDAZOLAM HCL/PF 2 MG/2 ML VIAL. IV ONE (15:00)
--- NOTE | 2019-09-25 17:36 | PDOC ---
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 14 Fr drain placed into R peritoneal fluid collection in psoas region - 100ml of thin reddish fluid drained. Lots of remaining phlegmon 2. 14 Fr. drain placed into LUQ peritoneal fluid collection - 250ml of thin reddish fluid drained. Remaining phlegmon present. 3. 14 Fr. drain placed into Peripancreatic fluid collection - approx 25ml thin reddish fluid drained. Significant remaining phlegmon. Orders for all 3 drains to be flushed have been ordered. Type of Anesthesia Anesthesia:Local local with moderate sedation Estimated Blood Loss Estimated Blood Loss trace Drains/Tubes Drains/Tubes (3) 14 Fr drains placed Condition of Patient Condition of Patient stable Disposition Disposition back to ICU FRANCISCO J TRIPATHI Jr, MD Sep 25, 2019 17:36
[2019-09-25 18:13] LABS: BASE EXCESS ABG -6 mmol/L (-3-3); HCO3 ABG 21 mmol/L (21-28); PCO2 ABG 48 mmHg (35-46); PO2 ABG 92 mmHg (75-108); SAT O2 ABG 95 % (92-99)
[2019-09-25 18:18] LABS: FIO2 ABG 50
[2019-09-25 18:39] LABS: HEMATOCRIT 22.6 % (36.0-47.0); HEMOGLOBIN 7.4 g/dL (12.0-15.5); RED BLOOD COUNT 2.51 x10^6/uL (3.50-5.40); RED CELL DISTRIBUTION WIDTH 17.3 % (11.5-14.5); WHITE BLOOD COUNT 21.2 x10^3/uL (4.0-11.0)
--- NOTE | 2019-09-25 19:32 | PDOC ---
PROGRESS NOTES Subjective Subjective Pt seen earlier in the day; note that progress note entry later in the evening; pt with development of hypotension, tachycardia, continued large amount of drainage from R abdominal drain wound Objective Objective Vital Signs Date Time Temp Pulse Resp B/P (MAP) Pulse Ox O2 Delivery O2 Flow Rate FiO2 09/25/19 17:36 136 26 99 Venturi Mask 15.0 09/25/19 17:25 107/52 (70) 09/25/19 12:00 98.6 98.6 Intake and Output 09/25/19 07:00 Intake Total 2637 ml Output Total 1295 ml Balance 1342 ml IV Total 2637 ml Output Urine Total 1295 ml # Bowel Movements 2 Physical Exam Physical Exam pt appears ill, abdomen firm on right side, dark bloody drainage from R abdominal drain site Assessment Assessment Problems Medical Problems: (1) Acute pancreatitis Status: Acute (2) Cholelithiasis Status: Acute Plan Plan of Care CT reviewed; large amount of fluid collections, pt with septic appearance; recommend IR percutaneous drainage of collections. 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 Comment Review of Relevant I have reviewed the following items kolby (where applicable) has been applied. Labs Laboratory Tests Test 09/23/19 23:35 09/24/19 05:53 09/24/19 05:55 09/24/19 06:45 Glucose (Fingerstick) 178 mg/dL (70-99) 216 mg/dL (70-99) Sodium Level 147 mmol/L (136-145) Potassium Level 5.1 mmol/L (3.5-5.1) Chloride Level 113 mmol/L (98-107) Carbon Dioxide Level 26 mmol/L (21-32) Anion Gap 8 (6-14) Blood Urea Nitrogen 69 mg/dL (7-20) Creatinine 1.9 mg/dL (0.6-1.0) Estimated GFR (Cockcroft-Gault) 28.1 Glucose Level 240 mg/dL (70-99) Calcium Level 10.4 mg/dL (8.5-10.1) Phosphorus Level 4.0 mg/dL (2.6-4.7) Magnesium Level 2.4 mg/dL (1.8-2.4) Amylase Level 385 U/L (25-115) Lipase 563 U/L (73-393) White Blood Count 21.2 x10^3/uL (4.0-11.0) Red Blood Count 2.44 x10^6/uL (3.50-5.40) Hemoglobin 7.0 g/dL (12.0-15.5) Hematocrit 22.2 % (36.0-47.0) Mean Corpuscular Volume 91 fL (79-100) Mean Corpuscular Hemoglobin 29 pg (25-35) Mean Corpuscular Hemoglobin Concent 31 g/dL (31-37) Red Cell Distribution Width 21.0 % (11.5-14.5) Platelet Count 570 x10^3/uL (140-400) Neutrophils (%) (Auto) 85 % (31-73) Lymphocytes (%) (Auto) 11 % (24-48) Monocytes (%) (Auto) 4 % (0-9) Eosinophils (%) (Auto) 0 % (0-3) Basophils (%) (Auto) 0 % (0-3) Neutrophils # (Auto) 18.0 x10^3/uL (1.8-7.7) Lymphocytes # (Auto) 2.2 x10^3/uL (1.0-4.8) Monocytes # (Auto) 0.9 x10^3/uL (0.0-1.1) Eosinophils # (Auto) 0.1 x10^3/uL (0.0-0.7) Basophils # (Auto) 0.0 x10^3/uL (0.0-0.2) Test 09/24/19 13:06 09/24/19 13:53 09/24/19 16:30 09/24/19 18:12 White Blood Count 16.9 x10^3/uL (4.0-11.0) Red Blood Count 2.48 x10^6/uL (3.50-5.40) Hemoglobin 7.2 g/dL (12.0-15.5) Hematocrit 22.1 % (36.0-47.0) Mean Corpuscular Volume 89 fL (79-100) Mean Corpuscular Hemoglobin 29 pg (25-35) Mean Corpuscular Hemoglobin Concent 33 g/dL (31-37) Red Cell Distribution Width 19.5 % (11.5-14.5) Platelet Count 448 x10^3/uL (140-400) Glucose (Fingerstick) 216 mg/dL (70-99) 199 mg/dL (70-99) O2 Saturation 82 % (92-99) Arterial Blood pH 7.36 (7.35-7.45) Arterial Blood pCO2 at Patient Temp 39 mmHg (35-46) Arterial Blood pO2 at Patient Temp 53 mmHg (75-108) Arterial Blood HCO3 22 mmol/L (21-28) Arterial Blood Base Excess -4 mmol/L (-3-3) FiO2 21 Test 09/24/19 18:24 09/25/19 00:27 09/25/19 05:15 09/25/19 06:50 White Blood Count 18.7 x10^3/uL (4.0-11.0) 20.0 x10^3/uL (4.0-11.0) Red Blood Count 3.07 x10^6/uL (3.50-5.40) 3.06 x10^6/uL (3.50-5.40) Hemoglobin 9.1 g/dL (12.0-15.5) 8.7 g/dL (12.0-15.5) Hematocrit 27.2 % (36.0-47.0) 27.3 % (36.0-47.0) Mean Corpuscular Volume 89 fL (79-100) 89 fL (79-100) Mean Corpuscular Hemoglobin 30 pg (25-35) 29 pg (25-35) Mean Corpuscular Hemoglobin Concent 33 g/dL (31-37) 32 g/dL (31-37) Red Cell Distribution Width 18.0 % (11.5-14.5) 18.5 % (11.5-14.5) Platelet Count 476 x10^3/uL (140-400) 451 x10^3/uL (140-400) Glucose (Fingerstick) 247 mg/dL (70-99) Neutrophils (%) (Auto) 88 % (31-73) Lymphocytes (%) (Auto) 8 % (24-48) Monocytes (%) (Auto) 3 % (0-9) Eosinophils (%) (Auto) 0 % (0-3) Basophils (%) (Auto) 0 % (0-3) Neutrophils # (Auto) 17.6 x10^3/uL (1.8-7.7) Lymphocytes # (Auto) 1.7 x10^3/uL (1.0-4.8) Monocytes # (Auto) 0.6 x10^3/uL (0.0-1.1) Eosinophils # (Auto) 0.0 x10^3/uL (0.0-0.7) Basophils # (Auto) 0.0 x10^3/uL (0.0-0.2) Sodium Level 147 mmol/L (136-145) Potassium Level 5.3 mmol/L (3.5-5.1) Chloride Level 113 mmol/L (98-107) Carbon Dioxide Level 25 mmol/L (21-32) Anion Gap 9 (6-14) Blood Urea Nitrogen 74 mg/dL (7-20) Creatinine 1.9 mg/dL (0.6-1.0) Estimated GFR (Cockcroft-Gault) 28.1 BUN/Creatinine Ratio 39 (6-20) Glucose Level 241 mg/dL (70-99) Calcium Level 10.8 mg/dL (8.5-10.1) Total Bilirubin 0.6 mg/dL (0.2-1.0) Aspartate Amino Transf (AST/SGOT) 27 U/L (15-37) Alanine Aminotransferase (ALT/SGPT) 20 U/L (14-59) Alkaline Phosphatase 104 U/L (46-116) Total Protein 6.3 g/dL (6.4-8.2) Albumin 1.8 g/dL (3.4-5.0) Albumin/Globulin Ratio 0.4 (1.0-1.7) Prothrombin Time 16.0 SEC (11.7-14.0) Prothromb Time International Ratio 1.3 (0.8-1.1) Activated Partial Thromboplast Time 32 SEC (24-38) Lactic Acid Level 1.7 mmol/L (0.4-2.0) Test 09/25/19 08:08 09/25/19 11:30 09/25/19 13:20 09/25/19 18:05 Hemoglobin 8.3 g/dL (12.0-15.5) 9.6 g/dL (12.0-15.5) Hematocrit 26.0 % (36.0-47.0) 28.9 % (36.0-47.0) Mean Corpuscular Hemoglobin Concent 32 g/dL (31-37) 33 g/dL (31-37) Urine Collection Type Unknown Urine Color Yellow Urine Clarity Cloudy Urine pH 5.0 (<5.0-8.0) Urine Specific [place] 1.020 (1.000-1.030) Urine Protein 30 mg/dL (NEG-TRACE) Urine Glucose (UA) Negative mg/dL (NEG) Urine Ketones (Stick) Negative mg/dL (NEG) Urine Blood Negative (NEG) Urine Nitrite Negative (NEG) Urine Bilirubin Negative (NEG) Urine Urobilinogen Dipstick 0.2 mg/dL (0.2 mg/dL) Urine Leukocyte Esterase Small (NEG) Urine RBC 0 /HPF (0-2) Urine WBC 11-20 /HPF (0-4) Urine Squamous Epithelial Cells Mod /LPF Urine Transitional Epithelial Cells Mod /LPF Urine Amorphous Sediment Present /HPF Urine Bacteria Few /HPF (0-FEW) Urine Hyaline Casts Many /HPF Urine Granular Casts Many /HPF Urine Mucus Marked /LPF Urine Yeast Present /HPF White Blood Count 20.9 x10^3/uL (4.0-11.0) Red Blood Count 3.23 x10^6/uL (3.50-5.40) Mean Corpuscular Volume 89 fL (79-100) Mean Corpuscular Hemoglobin 30 pg (25-35) Red Cell Distribution Width 17.0 % (11.5-14.5) Platelet Count 433 x10^3/uL (140-400) O2 Saturation 95 % (92-99) Arterial Blood pH 7.25 (7.35-7.45) Arterial Blood pCO2 at Patient Temp 48 mmHg (35-46) Arterial Blood pO2 at Patient Temp 92 mmHg (75-108) Arterial Blood HCO3 21 mmol/L (21-28) Arterial Blood Base Excess -6 mmol/L (-3-3) FiO2 50 Test 09/25/19 18:30 09/25/19 18:37 White Blood Count 21.2 x10^3/uL (4.0-11.0) Red Blood Count 2.51 x10^6/uL (3.50-5.40) Hemoglobin 7.4 g/dL (12.0-15.5) Hematocrit 22.6 % (36.0-47.0) Mean Corpuscular Volume 90 fL (79-100) Mean Corpuscular Hemoglobin 30 pg (25-35) Mean Corpuscular Hemoglobin Concent 33 g/dL (31-37) Red Cell Distribution Width 17.3 % (11.5-14.5) Platelet Count 310 x10^3/uL (140-400) Glucose (Fingerstick) 234 mg/dL (70-99) Laboratory Tests Test 09/25/19 00:27 09/25/19 05:15 09/25/19 06:50 09/25/19 08:08 Glucose (Fingerstick) 247 mg/dL (70-99) White Blood Count 20.0 x10^3/uL (4.0-11.0) Red Blood Count 3.06 x10^6/uL (3.50-5.40) Hemoglobin 8.7 g/dL (12.0-15.5) 8.3 g/dL (12.0-15.5) Hematocrit 27.3 % (36.0-47.0) 26.0 % (36.0-47.0) Mean Corpuscular Volume 89 fL (79-100) Mean Corpuscular Hemoglobin 29 pg (25-35) Mean Corpuscular Hemoglobin Concent 32 g/dL (31-37) 32 g/dL (31-37) Red Cell Distribution Width 18.5 % (11.5-14.5) Platelet Count 451 x10^3/uL (140-400) Neutrophils (%) (Auto) 88 % (31-73) Lymphocytes (%) (Auto) 8 % (24-48) Monocytes (%) (Auto) 3 % (0-9) Eosinophils (%) (Auto) 0 % (0-3) Basophils (%) (Auto) 0 % (0-3) Neutrophils # (Auto) 17.6 x10^3/uL (1.8-7.7) Lymphocytes # (Auto) 1.7 x10^3/uL (1.0-4.8) Monocytes # (Auto) 0.6 x10^3/uL (0.0-1.1) Eosinophils # (Auto) 0.0 x10^3/uL (0.0-0.7) Basophils # (Auto) 0.0 x10^3/uL (0.0-0.2) Sodium Level 147 mmol/L (136-145) Potassium Level 5.3 mmol/L (3.5-5.1) Chloride Level 113 mmol/L (98-107) Carbon Dioxide Level 25 mmol/L (21-32) Anion Gap 9 (6-14) Blood Urea Nitrogen 74 mg/dL (7-20) Creatinine 1.9 mg/dL (0.6-1.0) Estimated GFR (Cockcroft-Gault) 28.1 BUN/Creatinine Ratio 39 (6-20) Glucose Level 241 mg/dL (70-99) Calcium Level 10.8 mg/dL (8.5-10.1) Total Bilirubin 0.6 mg/dL (0.2-1.0) Aspartate Amino Transf (AST/SGOT) 27 U/L (15-37) Alanine Aminotransferase (ALT/SGPT) 20 U/L (14-59) Alkaline Phosphatase 104 U/L (46-116) Total Protein 6.3 g/dL (6.4-8.2) Albumin 1.8 g/dL (3.4-5.0) Albumin/Globulin Ratio 0.4 (1.0-1.7) Prothrombin Time 16.0 SEC (11.7-14.0) Prothromb Time International Ratio 1.3 (0.8-1.1) Activated Partial Thromboplast Time 32 SEC (24-38) Lactic Acid Level 1.7 mmol/L (0.4-2.0) Test 09/25/19 11:30 09/25/19 13:20 09/25/19 18:05 09/25/19 18:30 Urine Collection Type Unknown Urine Color Yellow Urine Clarity Cloudy Urine pH 5.0 (<5.0-8.0) Urine Specific [place] 1.020 (1.000-1.030) Urine Protein 30 mg/dL (NEG-TRACE) Urine Glucose (UA) Negative mg/dL (NEG) Urine Ketones (Stick) Negative mg/dL (NEG) Urine Blood Negative (NEG) Urine Nitrite Negative (NEG) Urine Bilirubin Negative (NEG) Urine Urobilinogen Dipstick 0.2 mg/dL (0.2 mg/dL) Urine Leukocyte Esterase Small (NEG) Urine RBC 0 /HPF (0-2) Urine WBC 11-20 /HPF (0-4) Urine Squamous Epithelial Cells Mod /LPF Urine Transitional Epithelial Cells Mod /LPF Urine Amorphous Sediment Present /HPF Urine Bacteria Few /HPF (0-FEW) Urine Hyaline Casts Many /HPF Urine Granular Casts Many /HPF Urine Mucus Marked /LPF Urine Yeast Present /HPF White Blood Count 20.9 x10^3/uL (4.0-11.0) 21.2 x10^3/uL (4.0-11.0) Red Blood Count 3.23 x10^6/uL (3.50-5.40) 2.51 x10^6/uL (3.50-5.40) Hemoglobin 9.6 g/dL (12.0-15.5) 7.4 g/dL (12.0-15.5) Hematocrit 28.9 % (36.0-47.0) 22.6 % (36.0-47.0) Mean Corpuscular Volume 89 fL (79-100) 90 fL (79-100) Mean Corpuscular Hemoglobin 30 pg (25-35) 30 pg (25-35) Mean Corpuscular Hemoglobin Concent 33 g/dL (31-37) 33 g/dL (31-37) Red Cell Distribution Width 17.0 % (11.5-14.5) 17.3 % (11.5-14.5) Platelet Count 433 x10^3/uL (140-400) 310 x10^3/uL (140-400) O2 Saturation 95 % (92-99) Arterial Blood pH 7.25 (7.35-7.45) Arterial Blood pCO2 at Patient Temp 48 mmHg (35-46) Arterial Blood pO2 at Patient Temp 92 mmHg (75-108) Arterial Blood HCO3 21 mmol/L (21-28) Arterial Blood Base Excess -6 mmol/L (-3-3) FiO2 50 Test 09/25/19 18:37 Glucose (Fingerstick) 234 mg/dL (70-99) Microbiology 09/17/19 Gram Stain - Final, Complete 09/17/19 Aerobic Culture - Final, Complete 09/04/19 Blood Culture - Final, Complete NO GROWTH AFTER 5 DAYS 08/24/19 Fungal Culture - Final, Complete 08/24/19 Fungal Culture Result 1 - Final, Complete 07/31/19 Urine Culture - Final, Complete 07/31/19 Urine Culture Result 1 (ALEXANDRA) - Final, Complete Medications Current Medications Sodium Chloride 1,000 ml @ 1,000 mls/hr Q1H IV Last administered on 07/04/19at 03:00; Start 07/04/19 at 03:00; Stop 07/04/19 at 03:59; Status DC Ondansetron HCl (Zofran) 4 mg 1X ONCE IVP Last administered on 07/04/19at 03:27; Start 07/04/19 at 03:00; Stop 07/04/19 at 03:01; Status DC Morphine Sulfate (Morphine Sulfate) 4 mg 1X ONCE IV ; Start 07/04/19 at 03:00; Stop 07/04/19 at 03:01; Status Cancel Ketorolac Tromethamine (Toradol 30mg Vial) 30 mg 1X ONCE IV Last administered on 07/04/19at 02:54; Start 07/04/19 at 03:00; Stop 07/04/19 at 03:01; Status DC Fentanyl Citrate (Fentanyl 2ml Vial) 25 mcg 1X ONCE IVP Last administered on 07/04/19at 03:23; Start 07/04/19 at 03:30; Stop 07/04/19 at 03:31; Status DC Fentanyl Citrate (Fentanyl 2ml Vial) 100 mcg STK-MED ONCE .ROUTE ; Start 07/04/19 at 03:18; Stop 07/04/19 at 03:18; Status DC Iohexol (Omnipaque 350 Mg/ml) 90 ml 1X ONCE IV Last administered on 07/04/19at 03:25; Start 07/04/19 at 03:30; Stop 07/04/19 at 03:31; Status DC Info (CONTRAST GIVEN -- Rx MONITORING) 1 each PRN DAILY PRN MC SEE COMMENTS; Start 07/04/19 at 03:30; Stop 07/06/19 at 03:29; Status DC Hydromorphone HCl (Dilaudid) 0.5 mg 1X ONCE IV Last administered on 07/04/19at 03:55; Start 07/04/19 at 04:30; Stop 07/04/19 at 04:32; Status DC Ondansetron HCl (Zofran) 4 mg PRN Q8HRS PRN IV NAUSEA/VOMITING 1ST CHOICE; Start 07/04/19 at 05:00; Stop 07/04/19 at 09:27; Status DC Morphine Sulfate (Morphine Sulfate) 2 mg PRN Q2HR PRN IV SEVERE PAIN 7-10 Last administered on 07/05/19at 12:26; Start 07/04/19 at 05:00; Stop 07/05/19 at 14:15; Status DC Sodium Chloride 1,000 ml @ 125 mls/hr Q8H IV Last administered on 07/04/19at 20:56; Start 07/04/19 at 05:00; Stop 07/05/19 at 04:59; Status DC Hydromorphone HCl (Dilaudid) 0.5 mg PRN Q3HRS PRN IV SEVERE PAIN 7-10 Last administered on 07/05/19at 10:06; Start 07/04/19 at 05:00; Stop 07/05/19 at 12:01; Status DC Piperacillin Sod/ Tazobactam Sod 4.5 gm/Sodium Chloride 100 ml @ 200 mls/hr 1X ONCE IV Last administered on 07/04/19at 05:44; Start 07/04/19 at 06:00; Stop 07/04/19 at 06:29; Status DC Ondansetron HCl (Zofran) 4 mg PRN Q4HRS PRN IV NAUSEA/VOMITING 1ST CHOICE Last administered on 09/25/19at 05:18; Start 07/04/19 at 09:30 Insulin Human Lispro (HumaLOG) 0-9 UNITS Q6HRS SQ Last administered on 09/25/19at 19:06; Start 07/04/19 at 09:30 Dextrose (Dextrose 50%-Water Syringe) 12.5 gm PRN Q15MIN PRN IV SEE COMMENTS; Start 07/04/19 at 09:30 Pantoprazole Sodium (PROTONIX VIAL for IV PUSH) 40 mg DAILYAC IVP Last administered on 09/25/19at 11:01; Start 07/04/19 at 11:30 Prochlorperazine Edisylate (Compazine) 10 mg PRN Q6HRS PRN IV NAUSEA/VOMITING, 2nd CHOICE Last administered on 09/25/19at 11:00; Start 07/04/19 at 17:45 Atenolol (Tenormin) 100 mg DAILY PO ; Start 07/05/19 at 09:00; Stop 07/04/19 at 20:08; Status DC Metoprolol Tartrate (Lopressor Vial) 2.5 mg Q6HRS IVP Last administered on 07/05/19at 05:51; Start 07/04/19 at 20:15; Stop 07/05/19 at 10:02; Status DC Metoprolol Tartrate (Lopressor Vial) 5 mg Q6HRS IVP Last administered on 07/14/19at 00:12; Start 07/05/19 at 10:15; Stop 07/16/19 at 08:48; Status DC Hydromorphone HCl (Dilaudid) 1 mg PRN Q3HRS PRN IV SEVERE PAIN 7-10 Last administered on 07/11/19at 05:13; Start 07/05/19 at 12:00; Stop 07/19/19 at 00:25; Status DC Lidocaine HCl (Buffered Lidocaine 1%) 3 ml STK-MED ONCE .ROUTE ; Start 07/05/19 at 12:55; Stop 07/05/19 at 12:56; Status DC Albumin Human 500 ml @ 125 mls/hr 1X ONCE IV Last administered on 07/05/19at 14:33; Start 07/05/19 at 14:30; Stop 07/05/19 at 18:32; Status DC Norepinephrine Bitartrate 8 mg/ Dextrose 258 ml @ 17.299 mls/ hr CONT PRN IV PER PROTOCOL Last administered on 08/02/19at 12:48; Start 07/05/19 at 15:30; Stop 08/05/19 at 09:19; Status DC Sodium Chloride 1,000 ml @ 125 mls/hr Q8H IV Last administered on 07/05/19at 21:04; Start 07/05/19 at 16:00; Stop 07/06/19 at 02:42; Status DC Albumin Human 500 ml @ 125 mls/hr PRN BID PRN IV After every 2L NSS & BP < 90mm Last administered on 09/24/19at 11:40; Start 07/05/19 at 16:00 Iohexol (Omnipaque 300 Mg/ml) 60 ml 1X ONCE IV Last administered on 07/05/19at 17:20; Start 07/05/19 at 17:00; Stop 07/05/19 at 17:01; Status DC Info (CONTRAST GIVEN -- Rx MONITORING) 1 each PRN DAILY PRN MC SEE COMMENTS; Start 07/05/19 at 17:00; Stop 07/07/19 at 16:59; Status DC Meropenem 1 gm/ Sodium Chloride 100 ml @ 200 mls/hr Q8HRS IV Last administered on 07/06/19at 05:45; Start 07/05/19 at 20:00; Stop 07/06/19 at 08:48; Status DC Furosemide (Lasix) 40 mg 1X ONCE IVP Last administered on 07/05/19at 22:12; Start 07/05/19 at 22:30; Stop 07/05/19 at 22:31; Status DC Calcium Chloride 1000 mg/Sodium Chloride 110 ml @ 220 mls/hr 1X ONCE IV Last administered on 07/05/19at 22:11; Start 07/05/19 at 22:30; Stop 07/05/19 at 22:59; Status DC Albuterol Sulfate (Ventolin Neb Soln) 2.5 mg 1X ONCE NEB Last administered on 07/06/19at 00:56; Start 07/05/19 at 22:30; Stop 07/05/19 at 22:31; Status DC Insulin Human Regular (HumuLIN R VIAL) 5 unit 1X ONCE IV Last administered on 07/05/19at 22:14; Start 07/05/19 at 22:30; Stop 07/05/19 at 22:31; Status DC Magnesium Sulfate 50 ml @ 25 mls/hr 1X ONCE IV Last administered on 07/06/19at 02:57; Start 07/06/19 at 03:00; Stop 07/06/19 at 04:59; Status DC Calcium Gluconate 1000 mg/Sodium Chloride 110 ml @ 220 mls/hr 1X ONCE IV Last administered on 07/06/19at 02:46; Start 07/06/19 at 03:00; Stop 07/06/19 at 03:29; Status DC Sodium Chloride 1,000 ml @ 200 mls/hr Q5H IV Last administered on 07/06/19at 02:46; Start 07/06/19 at 03:00; Stop 07/06/19 at 10:21; Status DC Calcium Gluconate 1000 mg/Sodium Chloride 110 ml @ 220 mls/hr 1X ONCE IV Last administered on 07/06/19at 03:21; Start 07/06/19 at 03:30; Stop 07/06/19 at 03: 59; Status DC Sodium Bicarbonate 50 meq/Sodium Chloride 1,050 ml @ 75 mls/hr Q14H IV Last administered on 07/10/19at 21:10; Start 07/06/19 at 07:30; Stop 07/11/19 at 10:28; Status DC Calcium Gluconate 2000 mg/Sodium Chloride 120 ml @ 220 mls/hr 1X ONCE IV Last administered on 07/06/19at 09:05; Start 07/06/19 at 07:30; Stop 07/06/19 at 08:02; Status DC Lidocaine HCl (Xylocaine-Mpf 1% 2ml Vial) 2 ml STK-MED ONCE .ROUTE ; Start 07/06/19 at 08:47; Stop 07/06/19 at 08:47; Status DC Meropenem 500 mg/ Sodium Chloride 50 ml @ 100 mls/hr Q12HR IV Last administered on 07/11/19at 21:01; Start 07/06/19 at 18:00; Stop 07/12/19 at 07:58; Status DC Lidocaine HCl (Buffered Lidocaine 1%) 3 ml STK-MED ONCE .ROUTE ; Start 07/06/19 at 09:46; Stop 07/06/19 at 09:46; Status DC Lidocaine HCl (Buffered Lidocaine 1%) 6 ml 1X ONCE INJ Last administered on 07/06/19at 10:26; Start 07/06/19 at 10:15; Stop 07/06/19 at 10:16; Status DC Info (Tpn Per Pharmacy) 1 each PRN DAILY PRN MC SEE COMMENTS Last administered on 09/25/19at 08:44; Start 07/06/19 at 12:00 Sodium Chloride 1,000 ml @ 1,000 mls/hr Q1H PRN IV hypotension; Start 07/06/19 at 12:07; Stop 07/06/19 at 18:06; Status DC Diphenhydramine HCl (Benadryl) 25 mg 1X PRN PRN IV ITCHING; Start 07/06/19 at 12:15; Stop 07/07/19 at 12:14; Status DC Diphenhydramine HCl (Benadryl) 25 mg 1X PRN PRN IV ITCHING; Start 07/06/19 at 12:15; Stop 07/07/19 at 12:14; Status DC Sodium Chloride 1,000 ml @ 400 mls/hr Q2H30M PRN IV PATENCY; Start 07/06/19 at 12:07; Stop 07/07/19 at 00:06; Status DC Info (PHARMACY MONITORING -- do not chart) 1 each PRN DAILY PRN MC SEE COMMENTS; Start 07/06/19 at 12:15; Stop 07/08/19 at 08:13; Status DC Sodium Chloride 90 meq/Calcium Gluconate 10 meq/ Multivitamins 10 ml/Chromium/ Copper/Manganese/ Seleni/Zn 1 ml/ Total Parenteral Nutrition/Amino Acids/Dextrose/ Fat Emulsion Intravenous 55.005 ml @ 2.292 mls/hr TPN CONT IV ; Start 07/06/19 at 22:00; Stop 07/06/19 at 12:33; Status DC Info (Tpn Per Pharmacy) 1 each PRN DAILY PRN MC SEE COMMENTS; Start 07/06/19 at 12:30; Status UNV Sodium Chloride 90 meq/Calcium Gluconate 10 meq/ Multivitamins 10 ml/Chromium/ Copper/Manganese/ Seleni/Zn 0.5 ml/ Total Parenteral Nutrition/Amino Acids/Dextrose/ Fat Emulsion Intravenous 1,512 ml @ 63 mls/hr TPN CONT IV Last administered on 07/06/19at 22:06; Start 07/06/19 at 22:00; Stop 07/07/19 at 21:59; Status DC Calcium Carbonate/ Glycine (Tums) 500 mg PRN AFTMEALHC PRN PO INDIGESTION; Start 07/06/19 at 17:45; Stop 08/31/19 at 10:25; Status DC Calcium Gluconate (Calcium Gluconate) 2,000 mg 1X ONCE IVP Last administered on 07/07/19at 02:19; Start 07/07/19 at 02:15; Stop 07/07/19 at 02:16; Status DC Calcium Chloride 3000 mg/Sodium Chloride 1,030 ml @ 50 mls/hr [id number] IV Last administered on 07/09/19at 02:17; Start 07/07/19 at 08:00; Stop 07/09/19 at 15:23; Status DC Lorazepam (Ativan Inj) 1 mg PRN Q4HRS PRN IVP ANXIETY / AGITATION, 2nd cho[address] administered on 08/05/19at 03:51; Start 07/07/19 at 09:00; Stop 08/05/19 at 09:19; Status DC Sodium Chloride 1,000 ml @ 1,000 mls/hr Q1H PRN IV hypotension; Start 07/07/19 at 08:56; Stop 07/07/19 at 14:55; Status DC Albumin Human 200 ml @ 200 mls/hr 1X PRN PRN IV Hypotension; Start 07/07/19 at 09:00; Stop 07/07/19 at 14:59; Status DC Diphenhydramine HCl (Benadryl) 25 mg 1X PRN PRN IV ITCHING; Start 07/07/19 at 09:00; Stop 07/08/19 at 08:59; Status DC Diphenhydramine HCl (Benadryl) 25 mg 1X PRN PRN IV ITCHING; Start 07/07/19 at 09:00; Stop 07/08/19 at 08:59; Status DC Sodium Chloride 1,000 ml @ 400 mls/hr Q2H30M PRN IV PATENCY; Start 07/07/19 at 08:56; Stop 07/07/19 at 20:55; Status DC Info (PHARMACY MONITORING -- do not chart) 1 each PRN DAILY PRN MC SEE COMMENTS; Start 07/07/19 at 09:00; Status UNV Info (PHARMACY MONITORING -- do not chart) 1 each PRN DAILY PRN MC SEE COMMENTS; Start 07/07/19 at 09:00; Stop 07/08/19 at 08:13; Status DC Digoxin (Lanoxin) 500 mcg 1X ONCE IV Last administered on 07/07/19at 10:04; Start 07/07/19 at 10:00; Stop 07/07/19 at 10:01; Status DC Digoxin (Lanoxin) 125 mcg 1X ONCE IV Last administered on 07/07/19at 17:10; Start 07/07/19 at 18:00; Stop 07/07/19 at 18:01; Status DC Magnesium Sulfate 100 ml @ 25 mls/hr 1X ONCE IV Last administered on 07/07/19at 12:48; Start 07/07/19 at 13:00; Stop 07/07/19 at 16:59; Status DC Sodium Chloride 90 meq/Magnesium Sulfate 10 meq/ Calcium Gluconate 20 meq/ Multivitamins 10 ml/Chromium/ Copper/Manganese/ Seleni/Zn 0.5 ml/ Total Parenteral Nutrition/Amino Acids/Dextrose/ Fat Emulsion Intravenous 1,512 ml @ 63 mls/hr TPN CONT IV Last administered on 07/07/19at 22:25; Start 07/07/19 at 22:00; Stop 07/08/19 at 21:59; Status DC Sodium Chloride 1,000 ml @ 1,000 mls/hr Q1H PRN IV hypotension; Start 07/08/19 at 08:05; Stop 07/08/19 at 14:04; Status DC Albumin Human 200 ml @ 200 mls/hr 1X ONCE IV Last administered on 07/08/19at 08:57; Start 07/08/19 at 08:15; Stop 07/08/19 at 09:14; Status DC Diphenhydramine HCl (Benadryl) 25 mg 1X PRN PRN IV ITCHING; Start 07/08/19 at 08:15; Stop 07/09/19 at 08:14; Status DC Diphenhydramine HCl (Benadryl) 25 mg 1X PRN PRN IV ITCHING; Start 07/08/19 at 08:15; Stop 07/09/19 at 08:14; Status DC Sodium Chloride 1,000 ml @ 400 mls/hr Q2H30M PRN IV PATENCY; Start 07/08/19 at 08:05; Stop 07/08/19 at 20:04; Status DC Info (PHARMACY MONITORING -- do not chart) 1 each PRN DAILY PRN MC SEE COMMENTS; Start 07/08/19 at 08:15; Stop 07/12/19 at 07:57; Status DC Sodium Chloride 90 meq/Potassium Chloride 15 meq/ Potassium Phosphate 10 mmol/ Magnesium Sulfate 10 meq/Calcium Gluconate 20 meq/ Multivitamins 10 ml/Chromium/ Copper/Manganese/ Seleni/Zn 0.5 ml/ Total Parenteral Nutrition/Amino Acids/Dextrose/ Fat Emulsion Intravenous 1,512 ml @ 63 mls/hr TPN CONT IV Last administered on 07/08/19at 21:01; Start 07/08/19 at 22:00; Stop 07/09/19 at 21:59; Status DC Potassium Chloride/Water 100 ml @ 100 mls/hr 1X ONCE IV Last administered on 07/08/19at 14:09; Start 07/08/19 at 14:00; Stop 07/08/19 at 14:59; Status DC Benzocaine (Hurricaine One) 1 spray 1X ONCE MM Last administered on 07/08/19at 16:38; Start 07/08/19 at 14:30; Stop 07/08/19 at 14:31; Status DC Lidocaine HCl (Glydo (Lidocaine) Jelly) 1 ramu 1X ONCE MM Last administered on 07/08/19at 16:38; Start 07/08/19 at 14:30; Stop 07/08/19 at 14:31; Status DC Linezolid/Dextrose 300 ml @ 300 mls/hr Q12HR IV Last administered on 07/14/19at 21:04; Start 07/08/19 at 20:00; Stop 07/15/19 at 07:50; Status DC Acetaminophen (Tylenol) 650 mg PRN Q6HRS PRN PO MILD PAIN / TEMP; Start 07/09/19 at 03:30; Stop 07/09/19 at 03:36; Status DC Acetaminophen (Tylenol) 650 mg PRN Q6HRS PRN PEG MILD PAIN / TEMP Last administered on 08/04/19at 19:56; Start 07/09/19 at 03:36; Stop 08/31/19 at 10:25; Status DC Sodium Chloride 1,000 ml @ 1,000 mls/hr Q1H PRN IV hypotension; Start 07/09/19 at 07:50; Stop 07/09/19 at 13:49; Status DC Albumin Human 200 ml @ 200 mls/hr 1X PRN PRN IV Hypotension; Start 07/09/19 at 08:00; Stop 07/09/19 at 13:59; Status DC Sodium Chloride (Normal Saline Flush) 10 ml 1X PRN PRN IV AP catheter pack; Start 07/09/19 at 08:00; Stop 07/10/19 at 07:59; Status DC Sodium Chloride (Normal Saline Flush) 10 ml 1X PRN PRN IV RV TECHNICIAN catheter pack; Start 07/09/19 at 08:00; Stop 07/10/19 at 07:59; Status DC Sodium Chloride 1,000 ml @ 400 mls/hr Q2H30M PRN IV PATENCY; Start 07/09/19 at 07:50; Stop 07/09/19 at 19:49; Status DC Info (PHARMACY MONITORING -- do not chart) 1 each PRN DAILY PRN MC SEE COMMENTS; Start 07/09/19 at 08:00; Status UNV Info (PHARMACY MONITORING -- do not chart) 1 each PRN DAILY PRN MC SEE COMMENTS; Start 07/09/19 at 08:00; Stop 07/11/19 at 08:25; Status DC Sodium Chloride 90 meq/Potassium Chloride 15 meq/ Potassium Phosphate 10 mmol/ Magnesium Sulfate 10 meq/Calcium Gluconate 20 meq/ Multivitamins 10 ml/Chromium/ Copper/Manganese/ Seleni/Zn 0.5 ml/ Total Parenteral Nutrition/Amino Acids/Dextrose/ Fat Emulsion Intravenous 1,512 ml @ 63 mls/hr TPN CONT IV Last administered on 07/09/19at 20:57; Start 07/09/19 at 22:00; Stop 07/10/19 at 21:59; Status DC Sodium Chloride 90 meq/Potassium Chloride 15 meq/ Potassium Phosphate 15 mmol/ Magnesium Sulfate 10 meq/Calcium Gluconate 20 meq/ Multivitamins 10 ml/Chromium/ Copper/Manganese/ Seleni/Zn 0.5 ml/ Total Parenteral Nutrition/Amino Acids/Dextrose/ Fat Emulsion Intravenous 1,512 ml @ 63 mls/hr TPN CONT IV ; Start 07/10/19 at 22:00; Stop 07/10/19 at 14:16; Status DC Sodium Chloride 90 meq/Potassium Chloride 15 meq/ Potassium Phosphate 15 mmol/ Magnesium Sulfate 10 meq/Calcium Gluconate 20 meq/ Multivitamins 10 ml/Chromium/ Copper/Manganese/ Seleni/Zn 0.5 ml/ Total Parenteral Nutrition/Amino Acids/Dextrose/ Fat Emulsion Intravenous 1,200 ml @ 50 mls/hr TPN CONT IV ; Start 07/10/19 at 22:00; Stop 07/10/19 at 14:17; Status DC Sodium Chloride 90 meq/Potassium Chloride 15 meq/ Potassium Phosphate 10 mmol/ Magnesium Sulfate 10 meq/Calcium Gluconate 20 meq/ Multivitamins 10 ml/Chromium/ Copper/Manganese/ Seleni/Zn 0.5 ml/ Total Parenteral Nutrition/Amino Acids/Dextrose/ Fat Emulsion Intravenous 1,200 ml @ 50 mls/hr TPN CONT IV Last administered on 07/10/19at 23:29; Start 07/10/19 at 22:00; Stop 07/11/19 at 21:59; Status DC Sodium Chloride 1,000 ml @ 1,000 mls/hr Q1H PRN IV hypotension; Start 07/11/19 at 07:28; Stop 07/11/19 at 13:27; Status DC Albumin Human 200 ml @ 200 mls/hr 1X ONCE IV Last administered on 07/11/19at 08:51; Start 07/11/19 at 07:30; Stop 07/11/19 at 08:29; Status DC Diphenhydramine HCl (Benadryl) 25 mg 1X PRN PRN IV ITCHING; Start 07/11/19 at 07:30; Stop 07/12/19 at 07:29; Status DC Diphenhydramine HCl (Benadryl) 25 mg 1X PRN PRN IV ITCHING; Start 07/11/19 at 07:30; Stop 07/12/19 at 07:29; Status DC Sodium Chloride 1,000 ml @ 400 mls/hr Q2H30M PRN IV PATENCY; Start 07/11/19 at 07:28; Stop 07/11/19 at 19:27; Status DC Info (PHARMACY MONITORING -- do not chart) 1 each PRN DAILY PRN MC SEE COMMENTS; Start 07/11/19 at 07:30; Stop 07/22/19 at 13:01; Status DC Metronidazole 100 ml @ 100 mls/hr Q6HRS IV Last administered on 07/27/19at 06:26; Start 07/11/19 at 08:30; Stop 07/27/19 at 09:58; Status DC Micafungin Sodium 100 mg/Dextrose 100 ml @ 100 mls/hr Q24H IV Last administered on 08/18/19at 08:18; Start 07/11/19 at 09:00; Stop 08/18/19 at 20:58; Status DC Propofol 0 ml @ As Directed STK-MED ONCE IV ; Start 07/11/19 at 07:53; Stop 07/11/19 at 07:53; Status DC Etomidate (Amidate) 20 mg STK-MED ONCE IV ; Start 07/11/19 at 07:53; Stop 07/11/19 at 07:54; Status DC Midazolam HCl (Versed) 5 mg STK-MED ONCE .ROUTE ; Start 07/11/19 at 07:57; Stop 07/11/19 at 07:57; Status DC Fentanyl Citrate 30 ml @ 0 mls/hr CONT PRN IV SEE PROTOCOL Last administered on 08/05/19at 06:12; Start 07/11/19 at 08:15; Stop 08/05/19 at 09:19; Status DC Artificial Tears (Artificial Tears) 1 drop PRN Q1HR PRN OU DRY EYE, 1st choice; Start 07/11/19 at 08:15; Stop 08/17/19 at 05:31; Status DC Midazolam HCl 50 mg/Sodium Chloride 50 ml @ 0 mls/hr CONT PRN IV SEE PROTOCOL Last administered on 07/14/19at 22:39; Start 07/11/19 at 08:15; Stop 07/16/19 at 15:59; Status DC Etomidate (Amidate) 8 mg 1X ONCE IV Last administered on 07/11/19at 08:33; Start 07/11/19 at 08:30; Stop 07/11/19 at 08:31; Status DC Succinylcholine Chloride (Anectine) 120 mg 1X ONCE IV Last administered on 07/11/19at 08:34; Start 07/11/19 at 08:30; Stop 07/11/19 at 08:31; Status DC Midazolam HCl (Versed) 5 mg 1X ONCE IV ; Start 07/11/19 at 08:30; Stop 07/11/19 at 08:31; Status DC Potassium Chloride 15 meq/ Bicarbonate Dialysis Soln w/ out KCl 5,007.5 ml @ 1,000 mls/ hr Q5H1M IV Last administered on 07/12/19at 11:11; Start 07/11/19 at 12:00; Stop 07/12/19 at 11:15; Status DC Potassium Chloride 15 meq/ Bicarbonate Dialysis Soln w/ out KCl 5,007.5 ml @ 1,000 mls/ hr Q5H1M IV Last administered on 07/12/19at 11:12; Start 07/11/19 at 12:00; Stop 07/12/19 at 11:17; Status DC Potassium Chloride 15 meq/ Bicarbonate Dialysis Soln w/ out KCl 5,007.5 ml @ 1,000 mls/ hr Q5H1M IV Last administered on 07/12/19at 11:11; Start 07/11/19 at 12:00; Stop 07/12/19 at 11:19; Status DC Sodium Chloride 90 meq/Potassium Chloride 15 meq/ Potassium Phosphate 10 mmol/ Magnesium Sulfate 10 meq/Calcium Gluconate 20 meq/ Multivitamins 10 ml/Chromium/ Copper/Manganese/ Seleni/Zn 0.5 ml/ Total Parenteral Nutrition/Amino Acids/Dextrose/ Fat Emulsion Intravenous 1,400 ml @ 58.333 mls/ hr TPN CONT IV Last administered on 07/11/19at 21:42; Start 07/11/19 at 22:00; Stop 07/12/19 at 21:59; Status DC Heparin Sodium (Porcine) (Heparin Sodium) 5,000 unit Q8HRS SQ Last administered on 07/16/19at 05:55; Start 07/11/19 at 15:00; Stop 07/16/19 at 13:28; Status DC Meropenem 500 mg/ Sodium Chloride 50 ml @ 100 mls/hr Q6HRS IV Last administered on 07/13/19at 06:00; Start 07/12/19 at 09:00; Stop 07/13/19 at 07:29 ; Status DC Potassium Phosphate 20 mmol/ Sodium Chloride 106.6667 ml @ 51.667 m... 1X ONCE IV Last administered on 07/12/19at 11:22; Start 07/12/19 at 10:15; Stop 07/12/19 at 12:18; Status DC Acetaminophen (Tylenol Supp) 650 mg PRN Q6HRS PRN SC MILD PAIN / TEMP > 100.3'F Last administered on 09/25/19at 14:41; Start 07/12/19 at 10:30 Potassium Chloride/Water 100 ml @ 100 mls/hr Q1H IV Last administered on 07/12/19at 12:12; Start 07/12/19 at 11:00; Stop 07/12/19 at 12:59; Status DC Potassium Chloride 20 meq/ Bicarbonate Dialysis Soln w/ out KCl 5,010 ml @ 1,000 mls/hr Q5H1M IV Last administered on 07/13/19at 08:48; Start 07/12/19 at 12:00; Stop 07/13/19 at 13:03; Status DC Potassium Chloride 20 meq/ Bicarbonate Dialysis Soln w/ out KCl 5,010 ml @ 1,000 mls/hr Q5H1M IV Last administered on 07/17/19at 14:52; Start 07/12/19 at 11:30; Stop 07/17/19 at 19:59; Status DC Potassium Chloride 20 meq/ Bicarbonate Dialysis Soln w/ out KCl 5,010 ml @ 1,000 mls/hr Q5H1M IV Last administered on 07/17/19at 14:53; Start 07/12/19 at 11:30; Stop 07/17/19 at 19:59; Status DC Sodium Chloride 90 meq/Potassium Chloride 15 meq/ Potassium Phosphate 15 mmol/ Magnesium Sulfate 10 meq/Calcium Gluconate 15 meq/ Multivitamins 10 ml/Chromium/ Copper/Manganese/ Seleni/Zn 0.5 ml/ Total Parenteral Nutrition/Amino Acids/Dextrose/ Fat Emulsion Intravenous 1,400 ml @ 58.333 mls/ hr TPN CONT IV Last administered on 07/12/19at 22:17; Start 07/12/19 at 22:00; Stop 07/13/19 at 21:59; Status DC Cefepime HCl (Maxipime) 2 gm Q12HR IVP Last administered on 07/26/19at 20:56; Start 07/13/19 at 09:00; Stop 07/27/19 at 09:58; Status DC Daptomycin 500 mg/ Sodium Chloride 50 ml @ 100 mls/hr Q48H IV Last administered on 07/29/19at 09:57; Start 07/13/19 at 08:30; Stop 07/29/19 at 10:07; Status DC Lidocaine HCl (Buffered Lidocaine 1%) 3 ml 1X ONCE INJ Last administered on 07/13/19at 10:27; Start 07/13/19 at 10:30; Stop 07/13/19 at 10:31; Status DC Potassium Phosphate 20 mmol/ Sodium Chloride 106.6667 ml @ 51.667 m... 1X ONCE IV Last administered on 07/13/19at 12:51; Start 07/13/19 at 13:00; Stop 07/13/19 at 15:03; Status DC Sodium Chloride 90 meq/Potassium Chloride 15 meq/ Potassium Phosphate 18 mmol/ Magnesium Sulfate 8 meq/Calcium Gluconate 15 meq/ Multivitamins 10 ml/Chromium/ Copper/Manganese/ Seleni/Zn 0.5 ml/ Total Parenteral Nutrition/Amino Acids/Dextrose/ Fat Emulsion Intravenous 1,400 ml @ 58.333 mls/ hr TPN CONT IV Last administered on 07/13/19at 22:16; Start 07/13/19 at 22:00; Stop 07/14/19 at 21:59; Status DC Potassium Chloride 20 meq/ Bicarbonate Dialysis Soln w/ out KCl 5,010 ml @ 1,000 mls/hr Q5H1M IV Last administered on 07/17/19at 14:54; Start 07/13/19 at 16:00; Stop 07/17/19 at 19:59; Status DC Multi-Ingred Cream/Lotion/Oil/ Oint (Artificial Tears Eye Ointment) 1 ramu PRN Q1HR PRN OU DRY EYE, 2nd choice Last administered on 08/01/19at 08:19; Start 07/13/19 at 17:30; Stop 09/21/19 at 14:39; Status DC Sodium Chloride 90 meq/Potassium Chloride 15 meq/ Potassium Phosphate 18 mmol/ Magnesium Sulfate 8 meq/Calcium Gluconate 15 meq/ Multivitamins 10 ml/Chromium/ Copper/Manganese/ Seleni/Zn 0.5 ml/ Total Parenteral Nutrition/Amino Acids/Dextrose/ Fat Emulsion Intravenous 1,400 ml @ 58.333 mls/ hr TPN CONT IV Last administered on 07/14/19at 22:00; Start 07/14/19 at 22:00; Stop 07/15/19 at 21:59; Status DC Albumin Human 500 ml @ 125 mls/hr 1X ONCE IV ; Start 07/14/19 at 14:15; Stop 07/14/19 at 18:14; Status DC Sodium Chloride 90 meq/Potassium Chloride 15 meq/ Potassium Phosphate 18 mmol/ Magnesium Sulfate 8 meq/Calcium Gluconate 15 meq/ Multivitamins 10 ml/Chromium/ Copper/Manganese/ Seleni/Zn 0.5 ml/ Insulin Human Regular 10 unit/ Total Parenteral Nutrition/Amino Acids/Dextrose/ Fat Emulsion Intravenous 1,400 ml @ 58.333 mls/ hr TPN CONT IV Last administered on 07/15/19at 21:43; Start 07/15/19 at 22:00; Stop 07/16/19 at 21:59; Status DC Lidocaine HCl (Buffered Lidocaine 1%) 3 ml STK-MED ONCE .ROUTE ; Start 07/13/19 at 10:00; Stop 07/15/19 at 13:57; Status DC Midazolam HCl 100 mg/Sodium Chloride 100 ml @ 7 mls/hr CONT PRN IV SEE PROTOCOL Last administered on 07/27/19at 15:35; Start 07/16/19 at 16:00; Stop 09/21/19 at 14:38; Status DC Sodium Chloride 90 meq/Potassium Chloride 15 meq/ Potassium Phosphate 18 mmol/ Magnesium Sulfate 8 meq/Calcium Gluconate 15 meq/ Multivitamins 10 ml/Chromium/ Copper/Manganese/ Seleni/Zn 0.5 ml/ Insulin Human Regular 15 unit/ Total Parenteral Nutrition/Amino Acids/Dextrose/ Fat Emulsion Intravenous 1,400 ml @ 58.333 mls/ hr TPN CONT IV Last administered on 07/16/19at 20:34; Start 07/16/19 at 22:00; Stop 07/17/19 at 21:59; Status DC Info (Icu Electrolyte Protocol) 1 ea CONT PRN PRN MC PER PROTOCOL; Start 07/17/19 at 13:15 Sodium Chloride 90 meq/Potassium Chloride 15 meq/ Potassium Phosphate 18 mmol/ Magnesium Sulfate 8 meq/Calcium Gluconate 15 meq/ Multivitamins 10 ml/Chromium/ Copper/Manganese/ Seleni/Zn 0.5 ml/ Insulin Human Regular 15 unit/ Total Parenteral Nutrition/Amino Acids/Dextrose/ Fat Emulsion Intravenous 1,400 ml @ 58.333 mls/ hr TPN CONT IV Last administered on 07/17/19at 22:05; Start 0 at 22:00; Stop 07/18/19 at 21:59; Status DC Potassium Chloride 15 meq/ Bicarbonate Dialysis Soln w/ out KCl 5,007.5 ml @ 1,000 mls/ hr Q5H1M IV Last administered on 07/20/19at 18:14; Start 07/17/19 at 20:00; Stop 07/21/19 at 13:08; Status DC Potassium Chloride 15 meq/ Bicarbonate Dialysis Soln w/ out KCl 5,007.5 ml @ 1,000 mls/ hr Q5H1M IV Last administered on 07/20/19at 18:14; Start 07/17/19 at 20:00; Stop 07/21/19 at 13:08; Status DC Potassium Chloride 15 meq/ Bicarbonate Dialysis Soln w/ out KCl 5,007.5 ml @ 1,000 mls/ hr Q5H1M IV Last administered on 07/20/19at 18:14; Start 07/17/19 at 20:00; Stop 07/21/19 at 13:08; Status DC Iohexol (Omnipaque 240 Mg/ml) 30 ml 1X ONCE PO Last administered on 07/18/19at 11:30; Start 07/18/19 at 11:30; Stop 07/18/19 at 11:33; Status DC Info (CONTRAST GIVEN -- Rx MONITORING) 1 each PRN DAILY PRN MC SEE COMMENTS; Start 07/18/19 at 11:45; Stop 07/20/19 at 11:44; Status DC Sodium Chloride 90 meq/Potassium Chloride 15 meq/ Potassium Phosphate 18 mmol/ Magnesium Sulfate 8 meq/Calcium Gluconate 15 meq/ Multivitamins 10 ml/Chromium/ Copper/Manganese/ Seleni/Zn 0.5 ml/ Insulin Human Regular 15 unit/ Total Parenteral Nutrition/Amino Acids/Dextrose/ Fat Emulsion Intravenous 1,400 ml @ 58.333 mls/ hr TPN CONT IV Last administered on 07/18/19at 21:47; Start 07/18/19 at 22:00; Stop 07/19/19 at 21:59; Status DC Sodium Chloride 90 meq/Potassium Chloride 15 meq/ Potassium Phosphate 18 mmol/ Magnesium Sulfate 8 meq/Calcium Gluconate 15 meq/ Multivitamins 10 ml/Chromium/ Copper/Manganese/ Seleni/Zn 0.5 ml/ Insulin Human Regular 20 unit/ Total Parenteral Nutrition/Amino Acids/Dextrose/ Fat Emulsion Intravenous 1,400 ml @ 58.333 mls/ hr TPN CONT IV Last administered on 07/19/19at 21:36; Start 07/19/19 at 22:00; Stop 07/20/19 at 21:59; Status DC Alteplase, Recombinant (Cathflo For Central Catheter Clearance) 1 mg 1X ONCE INT CAT Last administered on 07/19/19at 20:03; Start 07/19/19 at 19:30; Stop 07/19/19 at 19:46; Status DC Alteplase, Recombinant (Cathflo For Central Catheter Clearance) 1 mg 1X ONCE INT CAT Last administered on 07/19/19at 22:05; Start 07/19/19 at 22:00; Stop 07/19/19 at 22:01; Status DC Sodium Chloride 90 meq/Potassium Chloride 15 meq/ Potassium Phosphate 18 mmol/ Magnesium Sulfate 8 meq/Calcium Gluconate 15 meq/ Multivitamins 10 ml/Chromium/ Copper/Manganese/ Seleni/Zn 0.5 ml/ Insulin Human Regular 20 unit/ Total Parenteral Nutrition/Amino Acids/Dextrose/ Fat Emulsion Intravenous 1,400 ml @ 58.333 mls/ hr TPN CONT IV Last administered on 07/20/19at 21:30; Start 07/20/19 at 22:00; Stop 07/21/19 at 21:59; Status DC Dexmedetomidine HCl 400 mcg/ Sodium Chloride 100 ml @ 0 mls/hr CONT PRN IV ANXI ETY / AGITATION Last administered on 09/17/19at 12:57; Start 07/21/19 at 08:15; Stop 09/17/19 at 18:31; Status DC Sodium Chloride 500 ml @ 500 mls/hr 1X PRN PRN IV ELEVATED BP, SEE COMMENTS; Start 07/21/19 at 08:15 Atropine Sulfate (ATROPINE 0.5mg SYRINGE) 0.5 mg PRN Q5MIN PRN IV SEE COMMENTS; Start 07/21/19 at 08:15 Furosemide (Lasix) 20 mg 1X ONCE IVP Last administered on 07/21/19at 08:19; Start 07/21/19 at 08:15; Stop 07/21/19 at 08:16; Status DC Lidocaine HCl (Buffered Lidocaine 1%) 3 ml STK-MED ONCE .ROUTE ; Start 07/21/19 at 08:39; Stop 07/21/19 at 08:39; Status DC Lidocaine HCl (Buffered Lidocaine 1%) 6 ml 1X ONCE INJ Last administered on 07/21/19at 09:05; Start 07/21/19 at 09:00; Stop 07/21/19 at 09:06; Status DC Sodium Chloride 90 meq/Potassium Chloride 15 meq/ Potassium Phosphate 18 mmol/ Magnesium Sulfate 8 meq/Calcium Gluconate 15 meq/ Multivitamins 10 ml/Chromium/ Copper/Manganese/ Seleni/Zn 0.5 ml/ Insulin Human Regular 20 unit/ Total Parenteral Nutrition/Amino Acids/Dextrose/ Fat Emulsion Intravenous 1,400 ml @ 58.333 mls/ hr TPN CONT IV Last administered on 07/21/19at 22:45; Start 07/21/19 at 22:00; Stop 07/22/19 at 21:59; Status DC Sodium Chloride 1,000 ml @ 1,000 mls/hr Q1H PRN IV hypotension; Start 07/22/19 at 07:30; Stop 07/22/19 at 13:29; Status DC Albumin Human 200 ml @ 200 mls/hr 1X PRN PRN IV Hypotension Last administered on 07/22/19at 09:36; Start 07/22/19 at 07:30; Stop 07/22/19 at 13:29; Status DC Sodium Chloride (Normal Saline Flush) 10 ml 1X PRN PRN IV AP catheter pack; Start 07/22/19 at 07:30; Stop 07/22/19 at 21:29; Status DC Sodium Chloride (Normal Saline Flush) 10 ml 1X PRN PRN IV RV TECHNICIAN catheter pack; Start 07/22/19 at 07:30; Stop 07/23/19 at 07:29; Status DC Sodium Chloride 1,000 ml @ 400 mls/hr Q2H30M PRN IV PATENCY; Start 07/22/19 at 07:30; Stop 07/22/19 at 19:29; Status DC Info (PHARMACY MONITORING -- do not chart) 1 each PRN DAILY PRN MC SEE COMMENTS; Start 07/22/19 at 07:30; Stop 07/22/19 at 13:02; Status DC Info (PHARMACY MONITORING -- do not chart) 1 each PRN DAILY PRN MC SEE CO MMENTS; Start 07/22/19 at 07:30; Stop 07/24/19 at 12:45; Status DC Sodium Chloride 90 meq/Potassium Chloride 15 meq/ Potassium Phosphate 10 mmol/ Magnesium Sulfate 8 meq/Calcium Gluconate 15 meq/ Multivitamins 10 ml/Chromium/ Copper/Manganese/ Seleni/Zn 0.5 ml/ Insulin Human Regular 25 unit/ Total Parenteral Nutrition/Amino Acids/Dextrose/ Fat Emulsion Intravenous 1,400 ml @ 58.333 mls/ hr TPN CONT IV Last administered on 07/22/19at 22:19; Start 07/22/19 at 22:00; Stop 07/23/19 at 21:59; Status DC Heparin Sodium (Porcine) (Heparin Sodium) 5,000 unit Q12HR SQ Last administered on 08/14/19at 08:59; Start 07/22/19 at 21:00; Stop 08/14/19 at 10:05; Status DC Ondansetron HCl (Zofran) 4 mg PRN Q6HRS PRN IV NAUSEA/VOMITING; Start 07/25/19 at 07:00; Stop 07/26/19 at 06:59; Status DC Fentanyl Citrate (Fentanyl 2ml Vial) 25 mcg PRN Q5MIN PRN IV MILD PAIN 1-3; Start 07/25/19 at 07:00; Stop 07/26/19 at 06:59; Status DC Fentanyl Citrate (Fentanyl 2ml Vial) 50 mcg PRN Q5MIN PRN IV MODERATE TO SEVERE PAIN; Start 07/25/19 at 07:00; Stop 07/26/19 at 06:59; Status DC Ringer's Solution 1,000 ml @ 30 mls/hr Q24H IV ; Start 07/25/19 at 07:00; Stop 07/25/19 at 18:59; Status DC Lidocaine HCl (Xylocaine-Mpf 1% 2ml Vial) 2 ml PRN 1X PRN ID PRIOR TO IV START; Start 07/25/19 at 07:00; Stop 07/26/19 at 06:59; Status DC Prochlorperazine Edisylate (Compazine) 5 mg PACU PRN PRN IV NAUSEA, MRX1; Start 07/25/19 at 07:00; Stop 07/26/19 at 06:59; Status DC Sodium Chloride 1,000 ml @ 1,000 mls/hr Q1H PRN IV hypotension; Start 07/23/19 at 09:10; Stop 07/23/19 at 15:09; Status DC Albumin Human 200 ml @ 200 mls/hr 1X PRN PRN IV Hypotension Last administered on 07/23/19at 10:10; Start 07/23/19 at 09:15; Stop 07/23/19 at 15:14; Status DC Sodium Chloride 1,000 ml @ 400 mls/hr Q2H30M PRN IV PATENCY; Start 07/23/19 at 09:10; Stop 07/23/19 at 21:09; Status DC Info (PHARMACY MONITORING -- do not chart) 1 each PRN DAILY PRN MC SEE COM MENTS; Start 07/23/19 at 09:15; Stop 07/24/19 at 12:45; Status DC Info (PHARMACY MONITORING -- do not chart) 1 each PRN DAILY PRN MC SEE COMMENTS; Start 07/23/19 at 09:15; Stop 07/24/19 at 12:45; Status DC Sodium Chloride 90 meq/Potassium Chloride 15 meq/ Potassium Phosphate 10 mmol/ Magnesium Sulfate 8 meq/Calcium Gluconate 15 meq/ Multivitamins 10 ml/Chromium/ Copper/Manganese/ Seleni/Zn 0.5 ml/ Insulin Human Regular 25 unit/ Total Parenteral Nutrition/Amino Acids/Dextrose/ Fat Emulsion Intravenous 1,400 ml @ 58.333 mls/ hr TPN CONT IV Last administered on 07/23/19at 22:10; Start 07/23/19 at 22:00; Stop 07/24/19 at 21:59; Status DC Magnesium Sulfate 50 ml @ 25 mls/hr PRN DAILY PRN IV for Mag < 1.7 on am labs Last administered on 08/08/19at 17:27; Start 07/24/19 at 09:15 Sodium Chloride 90 meq/Potassium Chloride 15 meq/ Potassium Phosphate 10 mmol/ Magnesium Sulfate 8 meq/Calcium Gluconate 15 meq/ Multivitamins 10 ml/Chromium/ Copper/Manganese/ Seleni/Zn 0.5 ml/ Insulin Human Regular 25 unit/ Total Parenteral Nutrition/Amino Acids/Dextrose/ Fat Emulsion Intravenous 1,400 ml @ 58.333 mls/ hr TPN CONT IV Last administered on 07/24/19at 21:20; Start 07/24/19 at 22:00; Stop 07/25/19 at 21:59; Status DC Sodium Chloride 1,000 ml @ 1,000 mls/hr Q1H PRN IV hypotension; Start 07/24/19 at 12:23; Stop 07/24/19 at 18:22; Status DC Albumin Human 200 ml @ 200 mls/hr 1X ONCE IV Last administered on 07/24/19at 13:34; Start 07/24/19 at 12:30; Stop 07/24/19 at 13:29; Status DC Diphenhydramine HCl (Benadryl) 25 mg 1X PRN PRN IV ITCHING; Start 07/24/19 at 12:30; Stop 07/25/19 at 12:29; Status DC Diphenhydramine HCl (Benadryl) 25 mg 1X PRN PRN IV ITCHING; Start 07/24/19 at 12:30; Stop 07/25/19 at 12:29; Status DC Info (PHARMACY MONITORING -- do not chart) 1 each PRN DAILY PRN MC SEE COMMENTS; Start 07/24/19 at 12:30; Status Cancel Bupivacaine HCl/ Epinephrine Bitart (Sensorcain-Epi 0.5%-1:[id number] Mpf) 30 ml S TK-MED ONCE .ROUTE Last administered on 07/25/19at 11:44; Start 07/25/19 at 11:00; Stop 07/25/19 at 11:01; Status DC Cellulose (Surgicel Fibrillar 1x2) 1 each STK-MED ONCE .ROUTE ; Start 07/25/19 at 11:00; Stop 07/25/19 at 11:01; Status DC Sodium Chloride 90 meq/Potassium Chloride 15 meq/ Potassium Phosphate 10 mmol/ Magnesium Sulfate 12 meq/Calcium Gluconate 15 meq/ Multivitamins 10 ml/Chromium/ Copper/Manganese/ Seleni/Zn 0.5 ml/ Insulin Human Regular 25 unit/ Total Parenteral Nutrition/Amino Acids/Dextrose/ Fat Emulsion Intravenous 1,400 ml @ 58.333 mls/ hr TPN CONT IV Last administered on 07/25/19at 22:24; Start 07/25/19 at 22:00; Stop 07/26/19 at 21:59; Status DC Propofol 20 ml @ As Directed STK-MED ONCE IV ; Start 07/25/19 at 11:07; Stop 07/25/19 at 11:07; Status DC Cellulose (Surgicel Hemostat 4x8) 1 each STK-MED ONCE .ROUTE Last administered on 07/25/19at 11:44; Start 07/25/19 at 11:55; Stop 07/25/19 at 11:56; Status DC Sevoflurane (Ultane) 60 ml STK-MED ONCE IH ; Start 07/25/19 at 12:46; Stop 07/25/19 at 12:46; Status DC Sodium Chloride 1,000 ml @ 1,000 mls/hr Q1H PRN IV hypotension; Start 07/25/19 at 13:51; Stop 07/25/19 at 19:50; Status DC Albumin Human 200 ml @ 200 mls/hr 1X PRN PRN IV Hypotension Last administered on 07/25/19at 14:51; Start 07/25/19 at 14:00; Stop 07/25/19 at 19:59; Status DC Diphenhydramine HCl (Benadryl) 25 mg 1X PRN PRN IV ITCHING; Start 07/25/19 at 14:00; Stop 07/26/19 at 13:59; Status DC Diphenhydramine HCl (Benadryl) 25 mg 1X PRN PRN IV ITCHING; Start 07/25/19 at 14:00; Stop 07/26/19 at 13:59; Status DC Sodium Chloride 1,000 ml @ 400 mls/hr Q2H30M PRN IV PATENCY; Start 07/25/19 at 13:51; Stop 07/26/19 at 01:50; Status DC Info (PHARMACY MONITORING -- do not chart) 1 each PRN DAILY PRN MC SEE COMMENTS; Start 07/25/19 at 14:00; Stop 07/28/19 at 08:16; Status DC Heparin Sodium (Porcine) (Hep Lock Adult) 500 unit STK-MED ONCE IVP ; Start 07/26/19 at 09:29; Stop 07/26/19 at 09:30; Status DC Sodium Chloride 1,000 ml @ 1,000 mls/hr Q1H PRN IV hypotension; Start 07/26/19 at 10:43; Stop 07/26/19 at 16:42; Status DC Sodium Chloride 1,000 ml @ 400 mls/hr Q2H30M PRN IV PATENCY; Start 07/26/19 at 10:43; Stop 07/26/19 at 22:42; Status DC Info (PHARMACY MONITORING -- do not chart) 1 each PRN DAILY PRN MC SEE COMMENTS; Start 07/26/19 at 10:45; Status UNV Info (PHARMACY MONITORING -- do not chart) 1 each PRN DAILY PRN MC SEE COMMENTS; Start 07/26/19 at 10:45; Status UNV Sodium Chloride 90 meq/Potassium Chloride 15 meq/ Magnesium Sulfate 12 meq/Calcium Gluconate 15 meq/ Multivitamins 10 ml/Chromium/ Copper/Manganese/ Seleni/Zn 0.5 ml/ Insulin Human Regular 25 unit/ Total Parenteral Nutrition/Amino Acids/Dextrose/ Fat Emulsion Intravenous 1,400 ml @ 58.333 mls/ hr TPN CONT IV Last administered on 07/26/19at 22:13; Start 07/26/19 at 22:00; Stop 07/27/19 at 21:59; Status DC Sodium Chloride 1,000 ml @ 1,000 mls/hr Q1H PRN IV hypotension; Start 07/27/19 at 07:50; Stop 07/27/19 at 13:49; Status DC Albumin Human 200 ml @ 200 mls/hr 1X ONCE IV ; Start 07/27/19 at 08:00; Stop 07/27/19 at 08:53; Status DC Diphenhydramine HCl (Benadryl) 25 mg 1X PRN PRN IV ITCHING; Start 07/27/19 at 08:00; Stop 07/28/19 at 07:59; Status DC Diphenhydramine HCl (Benadryl) 25 mg 1X PRN PRN IV ITCHING; Start 07/27/19 at 08:00; Stop 07/28/19 at 07:59; Status DC Info (PHARMACY MONITORING -- do not chart) 1 each PRN DAILY PRN MC SEE COMMENTS; Start 07/27/19 at 08:00; Stop 07/28/19 at 08:16; Status DC Albumin Human 50 ml @ 50 mls/hr 1X ONCE IV ; Start 07/27/19 at 08:53; Stop 07/27/19 at 08:56; Status DC Albumin Human 200 ml @ 50 mls/hr PRN 1X PRN IV HYPOTENSION Last administered on 08/02/19at 11:54; Start 07/27/19 at 09:00; Stop 09/08/19 at 11:14; Status DC Meropenem 500 mg/ Sodium Chloride 50 ml @ 100 mls/hr Q12H IV Last administered on 08/16/19at 10:45; Start 07/27/19 at 10:00; Stop 08/16/19 at 12:37; Status DC Sodium Chloride 90 meq/Magnesium Sulfate 12 meq/ Calcium Gluconate 15 meq/ Multivitamins 10 ml/Chromium/ Copper/Manganese/ Seleni/Zn 0.5 ml/ Insulin Human Regular 25 unit/ Total Parenteral Nutrition/Amino Acids/Dextrose/ Fat Emulsion Intravenous 1,400 ml @ 58.333 mls/ hr TPN CONT IV Last administered on 07/27/19at 21:41; Start 07/27/19 at 22:00; Stop 07/28/19 at 21:59; Status DC Sodium Chloride 1,000 ml @ 1,000 mls/hr Q1H PRN IV hypotension; Start 07/28/19 at 07:58; Stop 07/28/19 at 13:57; Status DC Albumin Human 200 ml @ 200 mls/hr 1X PRN PRN IV Hypotension Last administered on 07/28/19at 09:30; Start 07/28/19 at 08:00; Stop 07/28/19 at 13:59; Status DC Sodium Chloride 1,000 ml @ 400 mls/hr Q2H30M PRN IV PATENCY; Start 07/28/19 at 07:58; Stop 07/28/19 at 19:57; Status DC Info (PHARMACY MONITORING -- do not chart) 1 each PRN DAILY PRN MC SEE COMMENTS; Start 07/28/19 at 08:00; Status Cancel Info (PHARMACY MONITORING -- do not chart) 1 each PRN DAILY PRN MC SEE COMMENTS; Start 07/28/19 at 08:15; Status UNV Sodium Chloride 90 meq/Potassium Phosphate 5 mmol/ Magnesium Sulfate 12 meq/Calcium Gluconate 15 meq/ Multivitamins 10 ml/Chromium/ Copper/Manganese/ Seleni/Zn 0.5 ml/ Insulin Human Regular 30 unit/ Total Parenteral Nutrition/Amino Acids/Dextrose/ Fat Emulsion Intravenous 1,400 ml @ 58.333 mls/ hr TPN CONT IV Last administered on 07/28/19at 22:08; Start 07/28/19 at 22:00; Stop 07/29/19 at 21:59; Status DC Linezolid/Dextrose 300 ml @ 300 mls/hr Q12HR IV Last administered on 08/08/19at 20:40; Start 07/29/19 at 11:00; Stop 08/09/19 at 08:10; Status DC Sodium Chloride 90 meq/Potassium Phosphate 15 mmol/ Magnesium Sulfate 12 meq/Calcium Gluconate 15 meq/ Multivitamins 10 ml/Chromium/ Copper/Manganese/ Seleni/Zn 0.5 ml/ Insulin Human Regular 30 unit/ Total Parenteral Nutrition/Amino Acids/Dextrose/ Fat Emulsion Intravenous 1,400 ml @ 58.333 mls/ hr TPN CONT IV Last administered on 07/29/19at 21:49; Start 07/29/19 at 22:00; Stop 07/30/19 at 21:59; Status DC Sodium Chloride 90 meq/Potassium Phosphate 15 mmol/ Magnesium Sulfate 12 meq/Calcium Gluconate 15 meq/ Multivitamins 10 ml/Chromium/ Copper/Manganese/ Seleni/Zn 0.5 ml/ Insulin Human Regular 40 unit/ Total Parenteral Nutrition/Amino Acids/Dextrose/ Fat Emulsion Intravenous 1,400 ml @ 58.333 mls/ hr TPN CONT IV Last administered on 07/30/19at 21:21; Start 07/30/19 at 22:00; Stop 07/31/19 at 21:59; Status DC Sodium Chloride 1,000 ml @ 1,000 mls/hr Q1H PRN IV hypotension; Start 07/30/19 at 13:26; Stop 07/30/19 at 19:25; Status DC Albumin Human 200 ml @ 200 mls/hr 1X PRN PRN IV Hypotension Last administered on 07/30/19at 15:00; Start 07/30/19 at 13:30; Stop 07/30/19 at 19:29; Status DC Sodium Chloride (Normal Saline Flush) 10 ml 1X PRN PRN IV AP catheter pack; Start 07/30/19 at 13:30; Stop 07/31/19 at 13:29; Status DC Sodium Chloride (Normal Saline Flush) 10 ml 1X PRN PRN IV RV TECHNICIAN catheter pack; Start 07/30/19 at 13:30; Stop 07/31/19 at 13:29; Status DC Sodium Chloride 1,000 ml @ 400 mls/hr Q2H30M PRN IV PATENCY; Start 07/30/19 at 13:26; Stop 07/31/19 at 01:25; Status DC Info (PHARMACY MONITORING -- do not chart) 1 each PRN DAILY PRN MC SEE COMMENTS; Start 07/30/19 at 13:30; Stop 07/30/19 at 13:33; Status DC Info (PHARMACY MONITORING -- do not chart) 1 each PRN DAILY PRN MC SEE PIPE TS; Start 07/30/19 at 13:30; Stop 07/30/19 at 13:34; Status DC Sodium Chloride 90 meq/Potassium Phosphate 19 mmol/ Magnesium Sulfate 12 meq/Calcium Gluconate 15 meq/ Multivitamins 10 ml/Chromium/ Copper/Manganese/ Seleni/Zn 0.5 ml/ Insulin Human Regular 40 unit/ Total Parenteral Nutrition/Amino Acids/Dextrose/ Fat Emulsion Intravenous 1,400 ml @ 58.333 mls/ hr TPN CONT IV Last administered on 07/31/19at 21:54; Start 07/31/19 at 22:00; Stop 08/01/19 at 21:59; Status DC Sodium Chloride 1,000 ml @ 1,000 mls/hr Q1H PRN IV hypotension; Start 08/01/19 at 09:35; Stop 08/01/19 at 15:34; Status DC Albumin Human 200 ml @ 200 mls/hr 1X PRN PRN IV Hypotension; Start 08/01/19 at 09:45; Stop 08/01/19 at 15:44; Status DC Diphenhydramine HCl (Benadryl) 25 mg 1X PRN PRN IV ITCHING; Start 08/01/19 at 09:45; Stop 08/02/19 at 09:44; Status DC Diphenhydramine HCl (Benadryl) 25 mg 1X PRN PRN IV ITCHING; Start 08/01/19 at 09:45; Stop 08/02/19 at 09:44; Status DC Sodium Chloride 1,000 ml @ 400 mls/hr Q2H30M PRN IV PATENCY; Start 08/01/19 at 09:35; Stop 08/01/19 at 21:34; Status DC Info (PHARMACY MONITORING -- do not chart) 1 each PRN DAILY PRN MC SEE COMMENTS; Start 08/01/19 at 09:45; Status Cancel Sodium Chloride 100 meq/Potassium Phosphate 19 mmol/ Magnesium Sulfate 12 meq/Calcium Gluconate 15 meq/ Multivitamins 10 ml/Chromium/ Copper/Manganese/ Seleni/Zn 0.5 ml/ Insulin Human Regular 40 unit/ Potassium Chloride 20 meq/ Total Parenteral Nutrition/Amino Acids/Dextrose/ Fat Emulsion Intravenous 1,400 ml @ 58.333 mls/ hr TPN CONT IV Last administered on 08/01/19at 22:02; Start 08/01/19 at 22:00; Stop 08/02/19 at 21:59; Status DC Furosemide (Lasix) 40 mg 1X ONCE IVP Last administered on 08/01/19at 14:39; Start 08/01/19 at 14:30; Stop 08/01/19 at 14:31; Status DC Metronidazole 100 ml @ 100 mls/hr Q8HRS IV Last administered on 08/09/19at 06:04; Start 08/02/19 at 10:00; Stop 08/09/19 at 08:10; Status DC Sodium Chloride 1,000 ml @ 1,000 mls/hr Q1H PRN IV hypotension; Start 08/02/19 at 08:00; Stop 08/02/19 at 13:59; Status DC Albumin Human 200 ml @ 200 mls/hr 1X PRN PRN IV Hypotension; Start 08/02/19 at 08:00; Stop 08/02/19 at 13:59; Status DC Sodium Chloride 1,000 ml @ 400 mls/hr Q2H30M PRN IV PATENCY; Start 08/02/19 at 08:00; Stop 08/02/19 at 19:59; Status DC Info (PHARMACY MONITORING -- do not chart) 1 each PRN DAILY PRN MC SEE COMMENTS; Start 08/02/19 at 11:30; Status UNV Info (PHARMACY MONITORING -- do not chart) 1 each PRN DAILY PRN MC SEE COMMENTS; Start 08/02/19 at 11:30; Stop 08/04/19 at 12:13; Status DC Sodium Chloride 100 meq/Potassium Phosphate 19 mmol/ Magnesium Sulfate 12 meq/Calcium Gluconate 15 meq/ Multivitamins 10 ml/Chromium/ Copper/Manganese/ Seleni/Zn 0.5 ml/ Insulin Human Regular 40 unit/ Potassium Chloride 20 meq/ Total Parenteral Nutrition/Amino Acids/Dextrose/ Fat Emulsion Intravenous 1,400 ml @ 58.333 mls/ hr TPN CONT IV Last administered on 08/02/19at 21:52; Start 08/02/19 at 22:00; Stop 08/03/19 at 21:59; Status DC Sodium Chloride (Normal Saline Flush) 10 ml QSHIFT PRN IV AFTER MEDS AND BLOOD DRAWS; Start 08/02/19 at 15:00; Stop 08/30/19 at 11:27; Status DC Sodium Chloride (Normal Saline Flush) 10 ml PRN Q5MIN PRN IV AFTER MEDS AND BLOOD DRAWS; Start 08/02/19 at 15:00 Sodium Chloride (Normal Saline Flush) 20 ml PRN Q5MIN PRN IV AFTER MEDS AND BLOOD DRAWS; Start 08/02/19 at 15:00 Sodium Chloride 100 meq/Potassium Phosphate 19 mmol/ Magnesium Sulfate 12 meq /Calcium Gluconate 15 meq/ Multivitamins 10 ml/Chromium/ Copper/Manganese/ Seleni/Zn 0.5 ml/ Insulin Human Regular 40 unit/ Potassium Chloride 20 meq/ Total Parenteral Nutrition/Amino Acids/Dextrose/ Fat Emulsion Intravenous 1,400 ml @ 58.333 mls/ hr TPN CONT IV Last administered on 08/03/19at 21:20; Start 08/03/19 at 22:00; Stop 08/04/19 at 21:59; Status DC Lidocaine HCl (Buffered Lidocaine 1%) 3 ml STK-MED ONCE .ROUTE ; Start 08/03/19 at 13:16; Stop 08/03/19 at 13:16; Status DC Lidocaine HCl (Buffered Lidocaine 1%) 6 ml 1X ONCE INJ Last administered on 08/03/19at 13:45; Start 08/03/19 at 13:30; Stop 08/03/19 at 13:31; Status DC Albumin Human 100 ml @ 100 mls/hr 1X ONCE IV Last administered on 08/03/19at 15:41; Start 08/03/19 at 15:00; Stop 08/03/19 at 15:59; Status DC Albumin Human 50 ml @ 50 mls/hr 1X ONCE IV Last administered on 08/03/19at 15:00; Start 08/03/19 at 15:00; Stop 08/03/19 at 15:59; Status DC Info (PHARMACY MONITORING -- do not chart) 1 each PRN DAILY PRN MC SEE COMMENTS; Start 08/04/19 at 11:30; Status Cancel Info (PHARMACY MONITORING -- do not chart) 1 each PRN DAILY PRN MC SEE COMMENTS; Start 08/04/19 at 11:30; Status UNV Sodium Chloride 100 meq/Potassium Phosphate 10 mmol/ Magnesium Sulfate 12 meq/Calcium Gluconate 15 meq/ Multivitamins 10 ml/Chromium/ Copper/Manganese/ Seleni/Zn 0.5 ml/ Insulin Human Regular 35 unit/ Potassium Chloride 20 meq/ Total Parenteral Nutrition/Amino Acids/Dextrose/ Fat Emulsion Intravenous 1,400 ml @ 58.333 mls/ hr TPN CONT IV Last administered on 08/04/19at 22:10; Start 08/04/19 at 22:00; Stop 08/05/19 at 21:59; Status DC Sodium Chloride 100 meq/Potassium Phosphate 5 mmol/ Magnesium Sulfate 12 meq/Calcium Gluconate 15 meq/ Multivitamins 10 ml/Chromium/ Copper/Manganese/ Seleni/Zn 0.5 ml/ Insulin Human Regular 35 unit/ Potassium Chloride 20 meq/ Total Parenteral Nutrition/Amino Acids/Dextrose/ Fat Emulsion Intravenous 1,400 ml @ 58.333 mls/ hr TPN CONT IV Last administered on 08/05/19at 22:59; Start 08/05/19 at 22:00; Stop 08/06/19 at 21:59; Status DC Sodium Chloride 1,000 ml @ 1,000 mls/hr Q1H PRN IV hypotension; Start 08/06/19 at 08:27; Stop 08/06/19 at 14:26; Status DC Albumin Human 200 ml @ 200 mls/hr 1X PRN PRN IV Hypotension Last administered on 08/06/19at 09:18; Start 08/06/19 at 08:30; Stop 08/06/19 at 14:29; Status DC Sodium Chloride 1,000 ml @ 400 mls/hr Q2H30M PRN IV PATENCY; Start 08/06/19 at 08:27; Stop 08/06/19 at 20:26; Status DC Info (PHARMACY MONITORING -- do not chart) 1 each PRN DAILY PRN MC SEE COMMENTS; Start 08/06/19 at 08:30; Status Cancel Info (PHARMACY MONITORING -- do not chart) 1 each PRN DAILY PRN MC SEE COMMENTS; Start 08/06/19 at 08:30; Stop 08/14/19 at 13:10; Status DC Sodium Chloride 100 meq/Potassium Chloride 40 meq/ Magnesium Sulfate 15 meq/Calcium Gluconate 15 meq/ Multivitamins 10 ml/Chromium/ Copper/Manganese/ Seleni/Zn 0.5 ml/ Insulin Human Regular 35 unit/ Total Parenteral Nu trition/Amino Acids/Dextrose/ Fat Emulsion Intravenous 1,400 ml @ 58.333 mls/ hr TPN CONT IV Last administered on 08/06/19at 22:00; Start 08/06/19 at 22:00; Stop 08/07/19 at 21:59; Status DC Potassium Chloride/Water 100 ml @ 100 mls/hr 1X ONCE IV Last administered on 08/06/19at 17:28; Start 08/06/19 at 14:45; Stop 08/06/19 at 15:44; Status DC Sodium Chloride 100 meq/Potassium Chloride 40 meq/ Magnesium Sulfate 15 meq/Calcium Gluconate 15 meq/ Multivitamins 10 ml/Chromium/ Copper/Manganese/ Seleni/Zn 0.5 ml/ Insulin Human Regular 35 unit/ Total Parenteral Nutrition/Amino Acids/Dextrose/ Fat Emulsion Intravenous 1,400 ml @ 58.333 mls/ hr TPN CONT IV Last administered on 08/07/19at 22:46; Start 08/07/19 at 22:00; Stop 08/08/19 at 21:59; Status DC Sodium Chloride 100 meq/Potassium Chloride 40 meq/ Magnesium Sulfate 20 meq/Calcium Gluconate 15 meq/ Multivitamins 10 ml/Chromium/ Copper/Manganese/ Seleni/Zn 0.5 ml/ Insulin Human Regular 35 unit/ Total Parenteral Nutrition/Amino Acids/Dextrose/ Fat Emulsion Intravenous 1,400 ml @ 58.333 mls/ hr TPN CONT IV Last administered on 08/08/19at 22:31; Start 08/08/19 at 22:00; Stop 08/09/19 at 21:59; Status DC Fentanyl Citrate (Fentanyl 2ml Vial) 50 mcg PRN Q2HR PRN IVP PAIN Last administered on 08/15/19at 13:32; Start 08/08/19 at 21:00; Stop 08/16/19 at 12:53; Status DC Fentanyl Citrate (Fentanyl 2ml Vial) 25 mcg PRN Q2HR PRN IVP PAIN; Start 08/08/19 at 21:00; Stop 08/16/19 at 12:54; Status DC Enoxaparin Sodium (Lovenox 100mg Syringe) 100 mg Q12HR SQ ; Start 08/09/19 at 21:00; Status UNV Amino Acids/ Glycerin/ Electrolytes 1,000 ml @ 75 mls/hr [id number] IV ; Start 08/08/19 at 21:15; Status UNV Sodium Chloride 1,000 ml @ 1,000 mls/hr Q1H PRN IV hypotension; Start 08/09/19 at 07:56; Stop 08/09/19 at 13:55; Status DC Albumin Human 200 ml @ 200 mls/hr 1X PRN PRN IV Hypotension Last administered on 08/09/19at 08:40; Start 08/09/19 at 08:00; Stop 08/09/19 at 13:59; Status DC Sodium Chloride 1,000 ml @ 400 mls/hr Q2H30M PRN IV PATENCY; Start 08/09/19 at 07:56; Stop 08/09/19 at 19:55; Status DC Info (PHARMACY MONITORING -- do not chart) 1 each PRN DAILY PRN MC SEE COMMENTS; Start 08/09/19 at 08:00; Status UNV Info (PHARMACY MONITORING -- do not chart) 1 each PRN DAILY PRN MC SEE COMMENTS; Start 08/09/19 at 08:00; Status UNV Daptomycin 430 mg/ Sodium Chloride 50 ml @ 100 mls/hr Q24H IV Last administered on 08/09/19at 12:35; Start 08/09/19 at 09:00; Stop 08/09/19 at 12:49; Status DC Sodium Chloride 100 meq/Potassium Chloride 40 meq/ Magnesium Sulfate 20 meq/Calc ium Gluconate 15 meq/ Multivitamins 10 ml/Chromium/ Copper/Manganese/ Seleni/Zn 0.5 ml/ Insulin Human Regular 35 unit/ Total Parenteral Nutrition/Amino Acids/Dextrose/ Fat Emulsion Intravenous 1,400 ml @ 58.333 mls/ hr TPN CONT IV Last administered on 08/09/19at 21:26; Start 08/09/19 at 22:00; Stop 08/10/19 at 21:59; Status DC Daptomycin 430 mg/ Sodium Chloride 50 ml @ 100 mls/hr Q48H IV ; Start 08/11/19 at 09:00; Stop 08/10/19 at 11:55; Status DC Sodium Chloride 100 meq/Potassium Chloride 40 meq/ Magnesium Sulfate 20 meq/Calcium Gluconate 15 meq/ Multivitamins 10 ml/Chromium/ Copper/Manganese/ Seleni/Zn 0.5 ml/ Insulin Human Regular 35 unit/ Total Parenteral Nutrition/Amino Acids/Dextrose/ Fat Emulsion Intravenous 1,400 ml @ 58.333 mls/ hr TPN CONT IV Last administered on 08/10/19at 22:27; Start 08/10/19 at 22:00; Stop 08/11/19 at 21:59; Status DC Daptomycin 430 mg/ Sodium Chloride 50 ml @ 100 mls/hr Q24H IV Last administered on 08/12/19at 15:07; Start 08/10/19 at 13:00; Stop 08/13/19 at 13:15; Status DC Sodium Chloride 100 meq/Potassium Chloride 40 meq/ Magnesium Sulfate 20 meq/Calcium Gluconate 10 meq/ Multivitamins 10 ml/Chromium/ Copper/Manganese/ Seleni/Zn 0.5 ml/ Insulin Human Regular 35 unit/ Total Parenteral Nutrition/Amino Acids/Dextrose/ Fat Emulsion Intravenous 1,400 ml @ 58.333 mls/ hr TPN CONT IV Last administered on 08/12/19at 00:06; Start 08/11/19 at 22:00; Stop 08/12/19 at 21:59; Status DC Alteplase, Recombinant (Cathflo For Central Catheter Clearance) 1 mg 1X ONCE INT CAT Last administered on 08/12/19at 11:44; Start 08/12/19 at 10:45; Stop 08/12/19 at 10:46; Status DC Ondansetron HCl (Zofran) 4 mg PRN Q6HRS PRN IV NAUSEA/VOMITING; Start 08/15/19 at 07:00; Stop 08/16/19 at 06:59; Status DC Fentanyl Citrate (Fentanyl 2ml Vial) 25 mcg PRN Q5MIN PRN IV MILD PAIN 1-3; Start 08/15/19 at 07:00; Stop 08/16/19 at 06:59; Status DC Fentanyl Citrate (Fentanyl 2ml Vial) 50 mcg PRN Q5MIN PRN IV MODERATE TO SEVERE PAIN Last administered on 08/15/19at 10:17; Start 08/15/19 at 07:00; Stop 07/20 12/07 at 06:59; Status DC Ringer's Solution 1,000 ml @ 30 mls/hr Q24H IV ; Start 08/15/19 at 07:00; Stop 08/15/19 at 18:59; Status DC Lidocaine HCl (Xylocaine-Mpf 1% 2ml Vial) 2 ml PRN 1X PRN ID PRIOR TO IV START; Start 08/15/19 at 07:00; Stop 08/16/19 at 06:59; Status DC Prochlorperazine Edisylate (Compazine) 5 mg PACU PRN PRN IV NAUSEA, MRX1; Start 08/15/19 at 07:00; Stop 08/16/19 at 06:59; Status DC Sodium Acetate 50 meq/Potassium Acetate 55 meq/ Magnesium Sulfate 20 meq/Calcium Gluconate 10 meq/ Multivitamins 10 ml/Chromium/ Copper/Manganese/ Seleni/Zn 0.5 ml/ Insulin Human Regular 35 unit/ Total Parenteral Nutrition/Amino Acids/Dextrose/ Fat Emulsion Intravenous 1,400 ml @ 58.333 mls/ hr TPN CONT IV ; Start 08/12/19 at 22:00; Stop 08/12/19 at 14:15; Status DC Sodium Acetate 50 meq/Potassium Acetate 55 meq/ Magnesium Sulfate 20 meq/Calcium Gluconate 10 meq/ Multivitamins 10 ml/Chromium/ Copper/Manganese/ Seleni/Zn 0.5 ml/ Insulin Human Regular 35 unit/ Total Parenteral Nutrition/Amino Acids/Dextr ose/ Fat Emulsion Intravenous 1,800 ml @ 75 mls/hr TPN CONT IV Last administered on 08/12/19at 22:38; Start 08/12/19 at 22:00; Stop 08/13/19 at 21:59; Status DC Sodium Chloride 1,000 ml @ 1,000 mls/hr Q1H PRN IV hypotension; Start 08/12/19 at 15:31; Stop 08/12/19 at 21:30; Status DC Diphenhydramine HCl (Benadryl) 25 mg 1X PRN PRN IV ITCHING; Start 08/12/19 at 15:45; Stop 08/13/19 at 15:44; Status DC Diphenhydramine HCl (Benadryl) 25 mg 1X PRN PRN IV ITCHING; Start 08/12/19 at 15:45; Stop 08/13/19 at 15:44; Status DC Sodium Chloride 1,000 ml @ 400 mls/hr Q2H30M PRN IV PATENCY; Start 08/12/19 at 15:31; Stop 08/13/19 at 03:30; Status DC Info (PHARMACY MONITORING -- do not chart) 1 each PRN DAILY PRN MC SEE COMMENTS; Start 08/12/19 at 15:45; Stop 09/13/19 at 14:14; Status DC Sodium Acetate 50 meq/Potassium Acetate 55 meq/ Magnesium Sulfate 20 meq/Calcium Gluconate 10 meq/ Multivitamins 10 ml/Chromium/ Copper/Manganese/ Seleni/Zn 0.5 ml/ Insulin Human Regular 35 unit/ Total Parenteral Nutrition/Amino Acids/Dextrose/ Fat Emulsion Intravenous 1,800 ml @ 75 mls/hr TPN CONT IV Last administered on 08/13/19at 22:03; Start 08/13/19 at 22:00; Stop 08/14/19 at 21:59; Status DC Daptomycin 430 mg/ Sodium Chloride 50 ml @ 100 mls/hr Q24H IV Last administered on 08/18/19at 13:00; Start 08/13/19 at 13:00; Stop 08/18/19 at 20:58; Status DC Heparin Sodium (Porcine) 1000 unit/Sodium Chloride 1,001 ml @ 1,001 mls/hr 1X ONCE IRR ; Start 08/15/19 at 06:00; Stop 08/15/19 at 06:59; Status DC Potassium Acetate 55 meq/Magnesium Sulfate 20 meq/ Calcium Gluconate 10 meq/ Multivitamins 10 ml/Chromium/ Copper/Manganese/ Seleni/Zn 0.5 ml/ Insulin Human Regular 35 unit/ Total Parenteral Nutrition/Amino Acids/Dextrose/ Fat Emulsion Intravenous 1,920 ml @ 80 mls/hr TPN CONT IV Last administered on 08/14/19at 22:10; Start 08/14/19 at 22:00; Stop 08/15/19 at 21:59; Status DC Dexamethasone Sodium Phosphate (Decadron) 4 mg STK-MED ONCE .ROUTE ; Start 08/15/19 at 10:56; Stop 08/15/19 at 10:57; Status DC Ondansetron HCl (Zofran) 4 mg STK-MED ONCE .ROUTE ; Start 08/15/19 at 10:56; Stop 08/15/19 at 10:57; Status DC Rocuronium [place] (Zemuron) 50 mg STK-MED ONCE .ROUTE ; Start 08/15/19 at 10:56; Stop 08/15/19 at 10:57; Status DC Fentanyl Citrate (Fentanyl 2ml Vial) 100 mcg STK-MED ONCE .ROUTE ; Start 08/15/19 at 10:56; Stop 08/15/19 at 10:57; Status DC Bupivacaine HCl/ Epinephrine Bitart (Sensorcain-Epi 0.5%-1:[id number] Mpf) 30 ml STK-MED ONCE .ROUTE Last administered on 08/15/19at 12:01; Start 08/15/19 at 10:58; Stop 08/15/19 at 10:58; Status DC Cellulose (Surgicel Hemostat 2x14) 1 each STK-MED ONCE .ROUTE ; Start 08/15/19 at 10:58; Stop 08/15/19 at 10:59; Status DC Iohexol (Omnipaque 300 Mg/ml) 50 ml STK-MED ONCE .ROUTE ; Start 08/15/19 at 10:58; Stop 08/15/19 at 10:59; Status DC Cellulose (Surgicel Hemostat 4x8) 1 each STK-MED ONCE .ROUTE ; Start 08/15/19 at 10:58; Stop 08/15/19 at 10:59; Status DC Bisacodyl (Dulcolax Supp) 10 mg STK-MED ONCE .ROUTE ; Start 08/15/19 at 10:59; Stop 08/15/19 at 10:59; Status DC Heparin Sodium (Porcine) 1000 unit/Sodium Chloride 1,001 ml @ 1,001 mls/hr 1X ONCE IRR ; Start 08/15/19 at 12:00; Stop 08/15/19 at 12:59; Status DC Propofol 20 ml @ As Directed STK-MED ONCE IV ; Start 08/15/19 at 11:05; Stop 08/15/19 at 11:05; Status DC Sevoflurane (Ultane) 90 ml STK-MED ONCE IH ; Start 08/15/19 at 11:05; Stop 08/15/19 at 11:05; Status DC Sevoflurane (Ultane) 60 ml STK-MED ONCE IH ; Start 08/15/19 at 12:26; Stop 08/15/19 at 12:27; Status DC Propofol 20 ml @ As Directed STK-MED ONCE IV ; Start 08/15/19 at 12:26; Stop 08/15/19 at 12:27; Status DC Phenylephrine HCl (PHENYLEPHRINE in 0.9% NACL PF) 1 mg STK-MED ONCE IV ; Start 08/15/19 at 12:34; Stop 08/15/19 at 12:34; Status DC Heparin Sodium (Porcine) (Heparin Sodium) 5,000 unit Q12HR SQ Last administered on 08/24/19at 20:57; Start 08/15/19 at 21:00; Stop 08/25/19 at 09:59; Status DC Sodium Chloride (Normal Saline Flush) 3 ml QSHIFT PRN IV AFTER MEDS AND BLOOD DRAWS; Start 08/15/19 at 13:45 Naloxone HCl (Narcan) 0.4 mg PRN Q2MIN PRN IV SEE INSTRUCTIONS Last administered on 09/24/19at 15:15; Start 08/15/19 at 13:45 Sodium Chloride 1,000 ml @ 25 mls/hr Q24H IV Last administered on 09/13/19at 13:37; Start 08/15/19 at 13:37; Stop 09/16/19 at 13:09; Status DC Naloxone HCl (Narcan) 0.4 mg PRN Q2MIN PRN IV SEE INSTRUCTIONS; Start 08/15/19 at 14:30; Status UNV Sodium Chloride 1,000 ml @ 25 mls/hr Q24H IV ; Start 08/15/19 at 14:30; Status UNV Hydromorphone HCl 30 ml @ 0 mls/hr CONT PRN PRN IV PER PROTOCOL Last administered on 08/20/19at 16:08; Start 08/15/19 at 14:30; Stop 08/22/19 at 08:55; Status DC Potassium Acetate 55 meq/Magnesium Sulfate 20 meq/ Calcium Gluconate 10 meq/ Multivitamins 10 ml/Chromium/ Copper/Manganese/ Seleni/Zn 0.5 ml/ Insulin Human Regular 35 unit/ Total Parenteral Nutrition/Amino Acids/Dextrose/ Fat Emulsion Intravenous 1,920 ml @ 80 mls/hr TPN CONT IV Last administered on 08/15/19at 22:01; Start 08/15/19 at 22:00; Stop 08/16/19 at 21:59; Status DC Bumetanide (Bumex) 2 mg [id number] IV Last administered on 08/19/19at 13:50; Start 08/16/19 at 14:00; Stop 08/20/19 at 14:10; Status DC Meropenem 1 gm/ Sodium Chloride 100 ml @ 200 mls/hr Q8HRS IV Last administered on 09/09/19at 05:53; Start 08/16/19 at 14:00; Stop 09/09/19 at 09:31; Status DC Potassium Acetate 55 meq/Magnesium Sulfate 20 meq/ Calcium Gluconate 10 meq/ Multivitamins 10 ml/Chromium/ Copper/Manganese/ Seleni/Zn 0.5 ml/ Insulin Human Regular 35 unit/ Total Parenteral Nutrition/Amino Acids/Dextrose/ Fat Emulsion Intravenous 1,920 ml @ 80 mls/hr TPN CONT IV Last administered on 08/16/19at 22:02; Start 08/16/19 at 22:00; Stop 08/17/19 at 21:59; Status DC Hydromorphone HCl (Dilaudid Standard BRAND MARKETING COORDINATOR) 12 mg STK-MED ONCE IV ; Start 08/15/19 at 14:35; Stop 08/16/19 at 13:53; Status DC Artificial Tears (Artificial Tears) 1 drop PRN Q15MIN PRN OU DRY EYE Last administered on 09/16/19at 10:08; Start 08/17/19 at 05:30 Hydromorphone HCl (Dilaudid Standard BRAND MARKETING COORDINATOR) 12 mg STK-MED ONCE IV ; Start 08/16/19 at 12:05; Stop 08/17/19 at 09:15; Status DC Potassium Acetate 65 meq/Magnesium Sulfate 20 meq/ Calcium Gluconate 10 meq/ Multivitamins 10 ml/Chromium/ Copper/Manganese/ Seleni/Zn 0.5 ml/ Insulin Human Regular 30 unit/ Total Parenteral Nutrition/Amino Acids/Dextrose/ Fat Emulsion Intravenous 1,920 ml @ 80 mls/hr TPN CONT IV Last administered on 08/17/19at 22:22; Start 08/17/19 at 22:00; Stop 08/18/19 at 21:59; Status DC Cyclobenzaprine HCl (Flexeril) 10 mg PRN Q6HRS PRN PO MUSCLE SPASMS; Start 08/18/19 at 10:45 Potassium Acetate 55 meq/Magnesium Sulfate 20 meq/ Calcium Gluconate 10 meq/ Multivitamins 10 ml/Chromium/ Copper/Manganese/ Seleni/Zn 0.5 ml/ Insulin Human Regular 30 unit/ Total Parenteral Nutrition/Amino Acids/Dextrose/ Fat Emulsion Intravenous 1,920 ml @ 80 mls/hr TPN CONT IV Last administered on 08/19/19at 01:00; Start 08/18/19 at 22:00; Stop 08/19/19 at 21:59; Status DC Magnesium Sulfate 50 ml @ 25 mls/hr 1X ONCE IV Last administered on 08/18/19at 17:18; Start 08/18/19 at 12:45; Stop 08/18/19 at 14:44; Status DC Potassium Chloride/Water 100 ml @ 100 mls/hr 1X ONCE IV Last administered on 08/19/19at 11:27; Start 08/19/19 at 12:00; Stop 08/19/19 at 12:59; Status DC Hydromorphone HCl (Dilaudid Standard BRAND MARKETING COORDINATOR) 12 mg STK-MED ONCE IV ; Start 08/17/19 at 10:50; Stop 08/19/19 at 11:02; Status DC Hydromorphone HCl (Dilaudid Standard BRAND MARKETING COORDINATOR) 12 mg STK-MED ONCE IV ; Start 08/18/19 at 13:47; Stop 08/19/19 at 11:03; Status DC Potassium Acetate 30 meq/Magnesium Sulfate 20 meq/ Calcium Gluconate 10 meq/ Multivitamins 10 ml/Chromium/ Copper/Manganese/ Seleni/Zn 0.5 ml/ Insulin Human Regular 30 unit/ Potassium Chloride 30 meq/ Total Parenteral Nutrition/Amino Acids/Dextrose/ Fat Emulsion Intravenous 1,920 ml @ 80 mls/hr TPN CONT IV La st administered on 08/19/19at 22:34; Start 08/19/19 at 22:00; Stop 08/20/19 at 21:59; Status DC Potassium Chloride/Water 100 ml @ 100 mls/hr Q1H IV Last administered on 08/20/19at 13:05; Start 08/20/19 at 07:00; Stop 08/20/19 at 10:59; Status DC Magnesium Sulfate 50 ml @ 25 mls/hr 1X ONCE IV Last administered on 08/20/19at 10:34; Start 08/20/19 at 10:30; Stop 08/20/19 at 12:29; Status DC Potassium Chloride 75 meq/ Magnesium Sulfate 20 meq/Calcium Gluconate 10 meq/ Multivitamins 10 ml/Chromium/ Copper/Manganese/ Seleni/Zn 0.5 ml/ Insulin Human Regular 30 unit/ Total Parenteral Nutrition/Amino Acids/Dextrose/ Fat Emulsion Intravenous 1,920 ml @ 80 mls/hr TPN CONT IV Last administered on 08/20/19at 21:51; Start 08/20/19 at 22:00; Stop 08/21/19 at 22:00; Status DC Potassium Chloride 75 meq/ Magnesium Sulfate 20 meq/Calcium Gluconate 10 meq/ Multivitamins 10 ml/Chromium/ Copper/Manganese/ Seleni/Zn 0.5 ml/ Insulin Human Regular 25 unit/ Total Parenteral Nutrition/Amino Acids/Dextrose/ Fat Emulsion Intravenous 1,920 ml @ 80 mls/hr TPN CONT IV Last administered on 08/21/19at 22:04; Start 08/21/19 at 22:00; Stop 08/22/19 at 21:59; Status DC Hydromorphone HCl (Dilaudid) 0.4 mg PRN Q4HRS PRN IVP PAIN Last administered on 08/22/19at 10:57; Start 08/22/19 at 09:00; Stop 08/22/19 at 18:59; Status DC Micafungin Sodium 100 mg/Dextrose 100 ml @ 100 mls/hr Q24H IV Last administered on 09/13/19at 12:17; Start 08/22/19 at 11:00; Stop 09/14/19 at 09:59; Status DC Daptomycin 485 mg/ Sodium Chloride 50 ml @ 100 mls/hr Q24H IV Last admin istered on 08/29/19at 13:10; Start 08/22/19 at 11:00; Stop 08/30/19 at 07:44; Status DC Potassium Chloride 75 meq/ Magnesium Sulfate 15 meq/Calcium Gluconate 8 meq/ Multivitamins 10 ml/Chromium/ Copper/Manganese/ Seleni/Zn 0.5 ml/ Insulin Human Regular 25 unit/ Total Parenteral Nutrition/Amino Acids/Dextrose/ Fat Emulsion Intravenous 1,920 ml @ 80 mls/hr TPN CONT IV Last administered on 08/22/19at 23:08; Start 08/22/19 at 22:00; Stop 08/23/19 at 21:59; Status DC Haloperidol Lactate (Haldol Inj) 3 mg 1X ONCE IVP Last administered on 08/22/19at 14:37; Start 08/22/19 at 14:30; Stop 08/22/19 at 14:31; Status DC Hydromorphone HCl (Dilaudid) 1 mg PRN Q4HRS PRN IVP PAIN Last administered on 09/05/19at 06:25; Start 08/22/19 at 19:00; Stop 09/05/19 at 17:10; Status DC Potassium Chloride 75 meq/ Magnesium Sulfate 15 meq/Calcium Gluconate 8 meq/ Multivitamins 10 ml/Chromium/ Copper/Manganese/ Seleni/Zn 0.5 ml/ Insulin Human Regular 20 unit/ Total Parenteral Nutrition/Amino Acids/Dextrose/ Fat Emulsion Intravenous 1,920 ml @ 80 mls/hr TPN CONT IV Last administered on 08/23/19at 22:10; Start 08/23/19 at 22:00; Stop 08/24/19 at 21:59; Status DC Lidocaine HCl (Buffered Lidocaine 1%) 3 ml STK-MED ONCE .ROUTE ; Start 08/24/19 at 11:31; Stop 08/24/19 at 11:31; Status DC Lidocaine HCl (Buffered Lidocaine 1%) 3 ml STK-MED ONCE .ROUTE ; Start 08/24/19 at 12:28; Stop 08/24/19 at 12:29; Status DC Lidocaine HCl (Buffered Lidocaine 1%) 6 ml 1X ONCE INJ Last administered on 08/24/19at 12:53; Start 08/24/19 at 12:45; Stop 08/24/19 at 12:46; Status DC Potassium Chloride 75 meq/ Magnesium Sulfate 15 meq/Calcium Gluconate 8 meq/ Multivitamins 10 ml/Chromium/ Copper/Manganese/ Seleni/Zn 0.5 ml/ Insulin Human Regular 20 unit/ Total Parenteral Nutrition/Amino Acids/Dextrose/ Fat Emulsion Intravenous 1,920 ml @ 80 mls/hr TPN CONT IV Last administered on 08/24/19at 22:00; Start 08/24/19 at 22:00; Stop 08/25/19 at 21:59; Status DC Potassium Chloride 75 meq/ Magnesium Sulfate 15 meq/Calcium Gluconate 8 meq/ Multivitamins 10 ml/Chromium/ Copper/Manganese/ Seleni/Zn 0.5 ml/ Insulin Human Regular 15 unit/ Total Parenteral Nutrition/Amino Acids/Dextrose/ Fat Emulsion Intravenous 1,920 ml @ 80 mls/hr TPN CONT IV Last administered on 08/25/19at 22:28; Start 08/25/19 at 22:00; Stop 08/26/19 at 21:59; Status DC Vecuronium [place] (Norcuron Bolus) 6 mg PRN Q6HRS PRN IV VENT ASYNCHRONY; Start 08/25/19 at 19:15; Stop 08/25/19 at 19:35; Status DC Bumetanide (Bumex) 2 mg 1X ONCE IV Last administered on 08/25/19at 22:09; Start 08/25/19 at 19:45; Stop 08/25/19 at 19:46; Status DC Lidocaine HCl (Buffered Lidocaine 1%) 3 ml STK-MED ONCE .ROUTE ; Start 08/26/19 at 07:59; Stop 08/26/19 at 07:59; Status DC Midazolam HCl (Versed) 5 mg STK-MED ONCE .ROUTE ; Start 08/26/19 at 08:36; Stop 08/26/19 at 08:36; Status DC Fentanyl Citrate (Fentanyl 5ml Vial) 250 mcg STK-MED ONCE .ROUTE ; Start 08/26/19 at 08:36; Stop 08/26/19 at 08:37; Status DC Lidocaine HCl (Buffered Lidocaine 1%) 3 ml 1X ONCE IJ Last administered on 08/26/19at 09:30; Start 08/26/19 at 09:15; Stop 08/26/19 at 09:16; Status DC Midazolam HCl (Versed) 5 mg 1X ONCE IV Last administered on 08/26/19at 09:30; Start 08/26/19 at 09:15; Stop 08/26/19 at 09:16; Status DC Fentanyl Citrate (Fentanyl 5ml Vial) 250 mcg 1X ONCE IV Last administered on 08/26/19at 09:30; Start 08/26/19 at 09:15; Stop 08/26/19 at 09:16; Status DC Bumetanide (Bumex) 2 mg DAILY IV Last administered on 09/05/19at 08:07; Start 08/26/19 at 10:00; Stop 09/05/19 at 17:15; Status DC Potassium Chloride 75 meq/ Magnesium Sulfate 15 meq/ Multivitamins 10 ml/Chromium/ Copper/Manganese/ Seleni/Zn 0.5 ml/ Insulin Human Regular 15 unit/ Total Parenteral Nutrition/Amino Acids/Dextrose/ Fat Emulsion Intravenous 1,920 ml @ 80 mls/hr TPN CONT IV Last administered on 08/26/19at 21:59; Start 08/26/19 at 22:00; Stop 08/27/19 at 21:59; Status DC Metoclopramide HCl (Reglan Vial) 10 mg PRN Q3HRS PRN IVP NAUSEA/VOMITING-3rd choice Last administered on 09/01/19at 04:25; Start 08/27/19 at 16:45 Potassium Chloride 75 meq/ Magnesium Sulfate 15 meq/ Multivitamins 10 ml/Chromium/ Copper/Manganese/ Seleni/Zn 0.5 ml/ Insulin Human Regular 15 unit/ Total Parenteral Nutrition/Amino Acids/Dextrose/ Fat Emulsion Intravenous 1,920 ml @ 80 mls/hr TPN CONT IV Last administered on 08/27/19at 22:41; Start 08/27/19 at 22:00; Stop 08/28/19 at 21:59; Status DC Magnesium Sulfate 50 ml @ 25 mls/hr 1X ONCE IV Last administered on 08/28/19at 10:44; Start 08/28/19 at 09:00; Stop 08/28/19 at 10:59; Status DC Potassium Chloride/Water 100 ml @ 100 mls/hr 1X ONCE IV Last administered on 08/28/19at 09:37; Start 08/28/19 at 09:00; Stop 08/28/19 at 09:59; Status DC Duloxetine HCl (Cymbalta) 30 mg DAILY PO Last administered on 08/29/19at 09:48; Start 08/28/19 at 14:00; Stop 08/31/19 at 10:25; Status DC Potassium Chloride 80 meq/ Magnesium Sulfate 20 meq/ Multivitamins 10 ml/Chromium/ Copper/Manganese/ Seleni/Zn 0.5 ml/ Insulin Human Regular 15 unit/ Total Parenteral Nutrition/Amino Acids/Dextrose/ Fat Emulsion Intravenous 1,920 ml @ 80 mls/hr TPN CONT IV Last administered on 08/28/19at 21:42; Start 08/28/19 at 22:00; Stop 08/29/19 at 21:59; Status DC Potassium Chloride 80 meq/ Magnesium Sulfate 20 meq/ Multivitamins 10 ml/Chromium/ Copper/Manganese/ Seleni/Zn 0.5 ml/ Insulin Human Regular 15 unit/ Total Parenteral Nutrition/Amino Acids/Dextrose/ Fat Emulsion Intravenous 1,920 ml @ 80 mls/hr TPN CONT IV Last administered on 08/29/19at 22:20; Start 08/29/19 at 22:00; Stop 08/30/19 at 21:59; Status DC Lidocaine HCl (Buffered Lidocaine 1%) 3 ml STK-MED ONCE .ROUTE ; Start 08/30/19 at 09:54; Stop 08/30/19 at 09:55; Status DC Hydromorphone HCl (Dilaudid Standard [employer]) 12 mg STK-MED ONCE IV ; Start 08/19/19 at 15:50; Stop 08/30/19 at 11:24; Status DC Potassium Chloride 80 meq/ Magnesium Sulfate 20 meq/ Multivitamins 10 ml/Chromium/ Copper/Manganese/ Seleni/Zn 0.5 ml/ Insulin Human Regular 15 unit/ Total Parenteral Nutrition/Amino Acids/Dextrose/ Fat Emulsion Intravenous 1,920 ml @ 80 mls/hr TPN CONT IV Last administered on 08/30/19at 21:40; Start 08/30/19 at 22:00; Stop 08/31/19 at 21:59; Status DC Lidocaine HCl (Buffered Lidocaine 1%) 6 ml 1X ONCE INJ Last administered on 08/30/19at 14:15; Start 08/30/19 at 14:15; Stop 08/30/19 at 14:16; Status DC Potassium Chloride 80 meq/ Magnesium Sulfate 20 meq/ Multivitamins 10 ml/Chromium/ Copper/Manganese/ Seleni/Zn 1 ml/ Insulin Human Regular 15 unit/ Total Parenteral Nutrition/Amino Acids/Dextrose/ Fat Emulsion Intravenous 1,920 ml @ 80 mls/hr TPN CONT IV Last administered on 08/31/19at 22:04; Start 08/31/19 at 22:00; Stop 09/01/19 at 21:59; Status DC Potassium Chloride/Water 100 ml @ 100 mls/hr 1X ONCE IV Last administered on 09/01/19at 11:34; Start 09/01/19 at 11:00; Stop 09/01/19 at 11:59; Status DC Potassium Chloride 90 meq/ Magnesium Sulfate 20 meq/ Multivitamins 10 ml/Chromium/ Copper/Manganese/ Seleni/Zn 1 ml/ Insulin Human Regular 15 unit/ Total Parenteral Nutrition/Amino Acids/Dextrose/ Fat Emulsion Intravenous 1,920 ml @ 80 mls/hr TPN CONT IV Last administered on 09/01/19at 22:57; Start 09/01/19 at 22:00; Stop 09/02/19 at 21:59; Status DC Potassium Chloride 90 meq/ Magnesium Sulfate 20 meq/ Multivitamins 10 ml/Chromium/ Copper/Manganese/ Seleni/Zn 1 ml/ Insulin Human Regular 15 unit/ Total Parenteral Nutrition/Amino Acids/Dextrose/ Fat Emulsion Intravenous 1,920 ml @ 80 mls/hr TPN CONT IV Last administered on 09/02/19at 22:48; Start 09/02/19 at 22:00; Stop 09/03/19 at 21:59; Status DC Potassium Chloride 90 meq/ Magnesium Sulfate 20 meq/ Multivitamins 10 ml/Chromium/ Copper/Manganese/ Seleni/Zn 1 ml/ Insulin Human Regular 15 unit/ Total Parenteral Nutrition/Amino Acids/Dextrose/ Fat Emulsion Intravenous 1,890 ml @ 78.75 mls/ hr TPN CONT IV Last administered on 09/03/19at 22:15; Start 09/03/19 at 22:00; Stop 09/04/19 at 21:59; Status DC Linezolid/Dextrose 300 ml @ 300 mls/hr Q12HR IV Last administered on 09/06/19at 21:08; Start 09/04/19 at 09:00; Stop 09/07/19 at 08:11; Status DC Daptomycin 450 mg/ Sodium Chloride 50 ml @ 100 mls/hr Q24H IV Last administered on 09/07/19at 09:25; Start 09/04/19 at 09:00; Stop 09/08/19 at 08:30; Status DC Potassium Chloride 90 meq/ Magnesium Sulfate 20 meq/ Multivitamins 10 ml/Chromium/ Copper/Manganese/ Seleni/Zn 1 ml/ Insulin Human Regular 15 unit/ T otal Parenteral Nutrition/Amino Acids/Dextrose/ Fat Emulsion Intravenous 1,890 ml @ 78.75 mls/ hr TPN CONT IV Last administered on 09/04/19at 21:34; Start 09/04/19 at 22:00; Stop 09/05/19 at 21:59; Status DC Lorazepam (Ativan Inj) 2 mg STK-MED ONCE .ROUTE ; Start 09/04/19 at 14:58; Stop 09/04/19 at 14:58; Status DC Metoprolol Tartrate (Lopressor Vial) 5 mg 1X ONCE IVP Last administered on 09/04/19at 15:31; Start 09/04/19 at 15:15; Stop 09/04/19 at 15:16; Status DC Lorazepam (Ativan Inj) 2 mg 1X ONCE IVP Last administered on 09/04/19at 15:30; Start 09/04/19 at 15:15; Stop 09/04/19 at 15:16; Status DC Enoxaparin Sodium (Lovenox 40mg Syringe) 40 mg Q24H SQ Last administered on 09/23/19at 17:44; Start 09/04/19 at 17:00; Stop 09/25/19 at 06:50; Status DC Lorazepam (Ativan Inj) 1 mg PRN Q4HRS PRN IVP ANXIETY / AGITATION MILD-MOD Last administered on 09/18/19at 15:55; Start 09/04/19 at 19:15; Stop 09/20/19 at 11:45; Status DC Lorazepam (Ativan Inj) 2 mg PRN Q4HRS PRN IVP ANXIETY / AGITATION SEVERE Last administered on 09/19/19at 07:55; Start 09/04/19 at 19:15; Stop 09/20/19 at 11:45; Status DC Fentanyl Citrate (Fentanyl 2ml Vial) 50 mcg PRN Q4HRS PRN IVP SEVERE PAIN Last administered on 09/25/19at 14:39; Start 09/05/19 at 13:15 Fentanyl Citrate (Fentanyl 2ml Vial) 25 mcg PRN Q4HRS PRN IVP MODERATE PAIN Last administered on 09/24/19at 21:55; Start 09/05/19 at 13:15 Potassium Chloride 90 meq/ Magnesium Sulfate 20 meq/ Multivitamins 10 ml/Chromium/ Copper/Manganese/ Seleni/Zn 1 ml/ Insulin Human Regular 15 unit/ Total Parenteral Nutrition/Amino Acids/Dextrose/ Fat Emulsion Intravenous 1,890 ml @ 78.75 mls/ hr TPN CONT IV Last administered on 09/05/19at 22:18; Start 09/05/19 at 22:00; Stop 09/06/19 at 21:59; Status DC Furosemide (Lasix) 40 mg 1X ONCE IVP Last administered on 09/05/19at 21:51; Start 09/05/19 at 21:45; Stop 09/05/19 at 21:48; Status DC Albumin Human 100 ml @ 100 mls/hr 1X PRN PRN IV SEE COMMENTS; Start 09/06/19 at 01:30 Furosemide (Lasix) 40 mg [id number] IVP Last administered on 09/21/19at 08:04; Start 09/06/19 at 14:00; Stop 09/21/19 at 13:07; Status DC Potassium Chloride 90 meq/ Magnesium Sulfate 20 meq/ Multivitamins 10 ml/Ch romium/ Copper/Manganese/ Seleni/Zn 1 ml/ Insulin Human Regular 15 unit/ Total Parenteral Nutrition/Amino Acids/Dextrose/ Fat Emulsion Intravenous 1,800 ml @ 75 mls/hr TPN CONT IV Last administered on 09/06/19at 22:31; Start 09/06/19 at 22:00; Stop 09/07/19 at 21:59; Status DC Potassium Chloride 90 meq/ Magnesium Sulfate 20 meq/ Multivitamins 10 ml/Chromium/ Copper/Manganese/ Seleni/Zn 1 ml/ Insulin Human Regular 15 unit/ Total Parenteral Nutrition/Amino Acids/Dextrose/ Fat Emulsion Intravenous 1,800 ml @ 75 mls/hr TPN CONT IV Last administered on 09/07/19at 22:28; Start 09/07/19 at 22:00; Stop 09/08/19 at 21:59; Status DC Potassium Chloride 110 meq/ Magnesium Sulfate 20 meq/ Multivitamins 10 ml/Chromium/ Copper/Manganese/ Seleni/Zn 1 ml/ Insulin Human Regular 15 unit/ Total Parenteral Nutrition/Amino Acids/Dextrose/ Fat Emulsion Intravenous 1,800 ml @ 75 mls/hr TPN CONT IV Last administered on 09/08/19at 22:01; Start 09/08/19 at 22:00; Stop 09/09/19 at 21:59; Status DC Saliva Substitute (Biotene Moisturizing Mouth) 2 spray PRN Q15MIN PRN PO DRY MOUTH; Start 09/08/19 at 11:00 Potassium Chloride 110 meq/ Magnesium Sulfate 20 meq/ Multivitamins 10 ml/Chromium/ Copper/Manganese/ Seleni/Zn 1 ml/ Insulin Human Regular 15 unit/ Total Parenteral Nutrition/Amino Acids/Dextrose/ Fat Emulsion Intravenous 1,800 ml @ 75 mls/hr TPN CONT IV Last administered on 09/09/19at 22:21; Start at 22:00; Stop 09/10/19 at 21:59; Status DC Potassium Chloride 110 meq/ Magnesium Sulfate 20 meq/ Multivitamins 10 ml/Ch romium/ Copper/Manganese/ Seleni/Zn 1 ml/ Insulin Human Regular 15 unit/ Total Parenteral Nutrition/Amino Acids/Dextrose/ Fat Emulsion Intravenous 1,800 ml @ 75 mls/hr TPN CONT IV Last administered on 09/10/19at 22:04; Start 09/10/19 at 22:00; Stop 09/11/19 at 21:59; Status DC Potassium Chloride 110 meq/ Magnesium Sulfate 20 meq/ Multivitamins 10 ml/Chromium/ Copper/Manganese/ Seleni/Zn 1 ml/ Insulin Human Regular 15 unit/ Total Parenteral Nutrition/Amino Acids/Dextrose/ Fat Emulsion Intravenous 1,800 ml @ 75 mls/hr TPN CONT IV Last administered on 09/11/19at 22:48; Start 09/11/19 at 22:00; Stop 09/12/19 at 21:59; Status DC Potassium Chloride 70 meq/ Magnesium Sulfate 20 meq/ Multivitamins 10 ml/Chromium/ Copper/Manganese/ Seleni/Zn 1 ml/ Insulin Human Regular 15 unit/ Total Parenteral Nutrition/Amino Acids/Dextrose/ Fat Emulsion Intravenous 1,800 ml @ 75 mls/hr TPN CONT IV Last administered on 09/12/19at 21:39; Start 09/12/19 at 22:00; Stop 09/13/19 at 21:59; Status DC Meropenem 500 mg/ Sodium Chloride 50 ml @ 100 mls/hr Q6HRS IV Last administered on 09/14/19at 06:02; Start 09/12/19 at 18:00; Stop 09/14/19 at 09:59; Status DC Barium Sulfate (Varibar Thin Liquid Apple) 148 gm 1X ONCE PO ; Start 09/13/19 at 11:45; Stop 09/13/19 at 11:49; Status DC Potassium Chloride 70 meq/ Magnesium Sulfate 20 meq/ Multivitamins 10 ml/Chromium/ Copper/Manganese/ Seleni/Zn 1 ml/ Insulin Human Regular 15 unit/ Total Parenteral Nutrition/Amino Acids/Dextrose/ Fat Emulsion Intravenous 1,800 ml @ 75 mls/hr TPN CONT IV Last administered on 09/13/19at 22:27; Start 09/13/19 at 22:00; Stop 09/14/19 at 21:59; Status DC Piperacillin Sod/ Tazobactam Sod 3.375 gm/Sodium Chloride 50 ml @ 100 mls/hr Q6HRS IV Last administered on 09/22/19at 06:10; Start 09/14/19 at 12:00; Stop 09/22/19 at 07:26; Status DC Potassium Chloride 70 meq/ Magnesium Sulfate 20 meq/ Multivitamins 10 ml/Chromium/ Copper/Manganese/ Seleni/Zn 1 ml/ Insulin Human Regular 15 unit/ Total Parenteral Nutrition/Amino Acids/Dextrose/ Fat Emulsion Intravenous 1,800 ml @ 75 mls/hr TPN CONT IV Last administered on 09/14/19at 22:03; Start 09/14/19 at 22:00; Stop 09/15/19 at 21:59; Status DC Potassium Chloride 70 meq/ Magnesium Sulfate 20 meq/ Multivitamins 10 ml/Chromium/ Copper/Manganese/ Seleni/Zn 1 ml/ Insulin Human Regular 15 unit/ Total Parenteral Nutrition/Amino Acids/Dextrose/ Fat Emulsion Intravenous 1,800 ml @ 75 mls/hr TPN CONT IV Last administered on 09/15/19at 22:33; Start 09/15/19 at 22:00; Stop 09/16/19 at 21:59; Status DC Potassium Chloride 70 meq/ Magnesium Sulfate 20 meq/ Multivitamins 10 ml/Chromium/ Copper/Manganese/ Seleni/Zn 1 ml/ Insulin Human Regular 15 unit/ Total Parenteral Nutrition/Amino Acids/Dextrose/ Fat Emulsion Intravenous 1,800 ml @ 75 mls/hr TPN CONT IV Last administered on 09/16/19at 23:13; Start 09/16/19 at 22:00; Stop 09/17/19 at 21:59; Status DC Potassium Chloride 80 meq/ Magnesium Sulfate 20 meq/ Multivitamins 10 ml/Chromium/ Copper/Manganese/ Seleni/Zn 1 ml/ Insulin Human Regular 15 unit/ Total Parenteral Nutrition/Amino Acids/Dextrose/ Fat Emulsion Intravenous 1,800 ml @ 75 mls/hr TPN CONT IV Last administered on 09/17/19at 22:30; Start 09/17/19 at 22:00; Stop 09/18/19 at 21:59; Status DC Potassium Chloride 80 meq/ Magnesium Sulfate 20 meq/ Multivitamins 10 ml/Chromium/ Copper/Manganese/ Seleni/Zn 1 ml/ Insulin Human Regular 15 unit/ Total Parenteral Nutrition/Amino Acids/Dextrose/ Fat Emulsion Intravenous 1,800 ml @ 75 mls/hr TPN CONT IV Last administered on 09/18/19at 21:54; Start 09/18/19 at 22:00; Stop 09/19/19 at 21:59; Status DC Potassium Chloride/Water 100 ml @ 100 mls/hr 1X ONCE IV Last administered on 09/19/19at 10:15; Start 09/19/19 at 10:00; Stop 09/19/19 at 10:59; Status DC Potassium Chloride 90 meq/ Magnesium Sulfate 20 meq/ Multivitamins 10 ml/Chromium/ Copper/Manganese/ Seleni/Zn 1 ml/ Insulin Human Regular 20 unit/ Total Parenteral Nutrition/Amino Acids/Dextrose/ Fat Emulsion Intravenous 1,800 ml @ 75 mls/hr TPN CONT IV Last administered on 09/19/19at 22:28; Start 09/19/19 at 22:00; Stop 09/20/19 at 21:59; Status DC Potassium Chloride 90 meq/ Magnesium Sulfate 20 meq/ Multivitamins 10 ml/Chromium/ Copper/Manganese/ Seleni/Zn 1 ml/ Insulin Human Regular 20 unit/ Total Parenteral Nutrition/Amino Acids/Dextrose/ Fat Emulsion Intravenous 1,800 ml @ 75 mls/hr TPN CONT IV Last administered on 09/20/19at 22:08; Start 09/20/19 at 22:00; Stop 09/21/19 at 21:59; Status DC Lorazepam (Ativan Inj) 0.25 mg PRN Q4HRS PRN IVP ANXIETY / AGITATION Last administered on 09/21/19at 07:55; Start 09/21/19 at 07:30 Potassium Chloride 90 meq/ Magnesium Sulfate 20 meq/ Multivitamins 10 ml/Chromium/ Copper/Manganese/ Seleni/Zn 1 ml/ Insulin Human Regular 20 unit/ Total Parenteral Nutrition/Amino Acids/Dextrose/ Fat Emulsion Intravenous 1,800 ml @ 75 mls/hr TPN CONT IV Last administered on 09/21/19at 23:13; Start 09/21/19 at 22:00; Stop 09/22/19 at 21:59; Status DC Furosemide (Lasix) 40 mg DAILY IVP Last administered on 09/23/19at 11:14; Start 09/21/19 at 13:30; Stop 09/25/19 at 09:12; Status DC Fluoxetine HCl (PROzac) 20 mg QHS PEG Last administered on 09/24/19at 21:47; Start 09/22/19 at 21:00 Fentanyl (Duragesic 50mcg/ Hr Patch) 1 patch Q72H TD Last administered on at 21:22; Start 09/22/19 at 21:00 Potassium Chloride 40 meq/ Potassium Acetate 60 meq/Magnesium Sulfate 10 meq/ Multivitamins 10 ml/Chromium/ Copper/Manganese/ Seleni/Zn 1 ml/ Insulin Human Regular 20 unit/ Total Parenteral Nutrition/Amino Acids/Dextrose/ Fat Emulsion Intravenous 1,800 ml @ 75 mls/hr TPN CONT IV Last administered on 09/23/19at 00:03; Start 09/22/19 at 22:00; Stop 09/23/19 at 21:59; Status DC Potassium Acetate 80 meq/Magnesium Sulfate 5 meq/ Multivitamins 10 ml/Chromium/ Copper/Manganese/ Seleni/Zn 1 ml/ Insulin Human Regular 20 unit/ Total Parenteral Nutrition/Amino Acids/Dextrose/ Fat Emulsion Intravenous 1,920 ml @ 80 mls/hr TPN CONT IV Last administered on 09/23/19at 21:59; Start 09/23/19 at 22:00; Stop 09/24/19 at 21:59; Status DC Potassium Acetate 60 meq/Magnesium Sulfate 5 meq/ Multivitamins 10 ml/Chromium/ Copper/Manganese/ Seleni/Zn 1 ml/ Insulin Human Regular 30 unit/ Total Parenteral Nutrition/Amino Acids/Dextrose/ Fat Emulsion Intravenous 1,920 ml @ 80 mls/hr TPN CONT IV Last administered on 09/24/19at 21:54; Start 09/24/19 at 22:00; Stop 09/25/19 at 21:59 Norepinephrine Bitartrate 8 mg/ Dextrose 258 ml @ 13.332 mls/ hr CONT PRN IV PER PROTOCOL Last administered on 09/25/19at 06:33; Start 09/25/19 at 06:30 Albumin Human 500 ml @ 125 mls/hr 1X ONCE IV Last administered on 09/25/19at 08:10; Start 09/25/19 at 08:15; Stop 09/25/19 at 12:14; Status DC Potassium Acetate 40 meq/Magnesium Sulfate 5 meq/ Multivitamins 10 ml/Chromium/ Copper/Manganese/ Seleni/Zn 1 ml/ Insulin Human Regular 30 unit/ Total Parenteral Nutrition/Amino Acids/Dextrose/ Fat Emulsion Intravenous 1,920 ml @ 80 mls/hr TPN CONT IV ; Start 09/25/19 at 22:00; Stop 09/26/19 at 21:59 Meropenem 1 gm/ Sodium Chloride 100 ml @ 200 mls/hr Q8HRS IV ; Start 09/25/19 at 14:00; Status Cancel Meropenem 1 gm/ Sodium Chloride 100 ml @ 200 mls/hr Q8HRS IV Last administered on 09/25/19at 11:04; Start 09/25/19 at 10:00; Stop 09/25/19 at 13:00; Status DC Meropenem 1 gm/ Sodium Chloride 100 ml @ 200 mls/hr Q12HR IV ; Start 09/25/19 at 21:00 Sodium Chloride 1,000 ml @ 1,000 mls/hr 1X ONCE IV Last administered on 09/25/19at 11:06; Start 09/25/19 at 10:45; Stop 09/25/19 at 11:44; Status DC Micafungin Sodium 100 mg/Dextrose 100 ml @ 100 mls/hr Q24H IV Last administered on 09/25/19at 14:12; Start 09/25/19 at 11:00 Daptomycin 410 mg/ Sodium Chloride 50 ml @ 100 mls/hr Q24H IV Last administered on 09/25/19at 14:14; Start 09/25/19 at 14:00 Midazolam HCl (Versed) 2 mg STK-MED ONCE .ROUTE ; Start 09/25/19 at 14:47; Stop 09/25/19 at 14:48; Status DC Fentanyl Citrate (Fentanyl 2ml Vial) 100 mcg STK-MED ONCE .ROUTE ; Start 09/25/19 at 14:47; Stop 09/25/19 at 14:48; Status DC Flumazenil (Romazicon) 0.5 mg STK-MED ONCE IV ; Start 09/25/19 at 14:48; Stop 09/25/19 at 14:48; Status DC Naloxone HCl (Narcan) 0.4 mg STK-MED ONCE .ROUTE ; Start 09/25/19 at 14:48; Stop 09/25/19 at 14:48; Status DC Lidocaine HCl (Lidocaine 1% 20ml Vial) 20 ml STK-MED ONCE .ROUTE ; Start 09/25/19 at 14:48; Stop 09/25/19 at 14:48; Status DC Midazolam HCl (Versed) 2 mg 1X ONCE IV Last administered on 09/25/19at 15:28; Start 09/25/19 at 15:00; Stop 09/25/19 at 15:01; Status DC Fentanyl Citrate (Fentanyl 2ml Vial) 100 mcg 1X ONCE IV Last administered on 09/25/19at 15:28; Start 09/25/19 at 15:00; Stop 09/25/19 at 15:01; Status DC Lidocaine HCl (Lidocaine 1% 20ml Vial) 20 ml 1X ONCE INJ Last administered on 09/25/19at 15:30; Start 09/25/19 at 15:00; Stop 09/25/19 at 15:01; Status DC Active Scripts Active Reported Bisoprolol Fumarate 5 Mg Tablet 10 Mg PO DAILY Vitals/I & O Vital Sign - Last 24 Hours 09/24/19 09/24/19 09/24/19 09/24/19 20:00 20:00 21:00 21:55 Temp 102.2 102.2 Pulse 137 138 Resp B/P (MAP) 99/54 (69) 101/51 (68) Pulse Ox 99 96 97 O2 Delivery Tracheal Collar Trach Collar Tracheal Collar Tracheal Collar 09/24/19 09/24/19 09/24/19 09/25/19 22:00 22:25 23:00 00:00 Temp 100.2 100.2 Pulse 138 134 Resp B/P (MAP) 89/55 (66) 88/56 (67) Pulse Ox 94 96 96 O2 Delivery Venturi Mask Venturi Mask Venturi Mask Venturi Mask O2 Flow Rate 10.0 12.0 12.0 09/25/19 09/25/19 09/25/19 09/25/19 00:01 01:00 02:00 03:00 Temp 99.6 99.6 Pulse 129 134 134 139 Resp B/P (MAP) 90/54 (66) 96/61 (73) 103/60 (74) 102/61 (75) Pulse Ox 94 93 99 97 O2 Delivery Venturi Mask Venturi Mask Venturi Mask Venturi Mask O2 Flow Rate 12.0 15.0 15.0 15.0 09/25/19 09/25/19 09/25/19 09/25/19 04:00 04:00 05:00 06:00 Temp 102.2 102.2 Pulse 144 150 147 Resp B/P (MAP) 91/66 (74) 89/57 (68) 81/41 (54) Pulse Ox 94 98 100 O2 Delivery Venturi Mask Venturi Mask Venturi Mask Venturi Mask O2 Flow Rate 15.0 15.0 15.0 15.0 09/25/19 09/25/19 09/25/19 09/25/19 07:00 08:00 08:00 08:30 Temp 100.2 100.2 Pulse 140 137 130 Resp B/P (MAP) 101/56 (71) 81/55 (64) 98/54 (69) Pulse Ox 100 100 100 O2 Delivery Venturi Mask Venturi Mask Venturi Mask Venturi Mask O2 Flow Rate 15.0 15.0 15.0 15.0 09/25/19 6 609/25/19 09:00 09:48 10:00 10:05 Temp 100.2 100.2 100.2 100.2 Pulse 130 150 130 150 Resp B/P (MAP) 95/60 (72) 116/72 106/69 (81) 106/72 Pulse Ox 100 100 O2 Delivery Venturi Mask Venturi Mask O2 Flow Rate 15.0 15.0 09/25/19 6 609/25/19 10:20 10:35 11:00 11:33 Temp 100.2 100.3 100.2 100.2 100.3 100.2 Pulse 148 148 133 148 Resp B/P (MAP) 102/68 105/58 113/66 (82) 102/53 Pulse Ox 100 O2 Delivery Venturi Mask O2 Flow Rate 15.0 09/24/09/25/1909/24/09/25/19 12:00 12:00 14:39 15:09 Temp 98.6 98.6 Pulse 134 Resp 30 B/P (MAP) 119/62 (81) Pulse Ox 100 100 99 O2 Delivery Venturi Mask Venturi Mask Venturi Mask Venturi Mask O2 Flow Rate 15.0 15.0 15.0 15.0 09/24/09/25/19 6/09/25/19 15:28 15:28 15:30 15:35 Pulse 150 150 148 Resp B/P (MAP) 98/46 (63) 101/46 (64) Pulse Ox 94 95 95 O2 Delivery Venturi Mask Venturi Mask Venturi Mask O2 Flow Rate 15.0 15.0 15.0 09/24/ 609/24/09/25/19 15:40 15:45 15:50 15:55 Pulse 148 146 147 146 Resp B/P (MAP) 106/50 (68) 88/42 (57) 98/56 (70) 108/56 (73) Pulse Ox 96 94 96 97 O2 Delivery Venturi Mask Venturi Mask Venturi Mask Venturi Mask O2 Flow Rate 15.0 15.0 15.0 15.0 09/24/ 6/11/0609/25/19 09/25/19 16:00 16:00 16:05 16:10 Pulse 146 147 147 Resp B/P (MAP) 104/49 (67) 105/51 (69) 110/43 (65) Pulse Ox 97 99 100 O2 Delivery Venturi Mask Venturi Mask Venturi Mask Venturi Mask O2 Flow Rate 15.0 15.0 15.0 15.0 09/25/19 09/25/19 09/25/19 09/25/19 16:15 16:20 16:25 16:30 Pulse 147 146 145 145 Resp B/P (MAP) 113/52 (72) 112/52 (72) 106/51 (69) 107/52 (70) Pulse Ox 100 100 99 99 O2 Delivery Venturi Mask Venturi Mask Venturi Mask Venturi Mask O2 Flow Rate 15.0 15.0 15.0 15.0 09/25/19 09/25/19 09/25/19 09/25/19 16:35 16:40 16:45 16:50 Pulse 144 144 145 143 Resp 25 B/P (MAP) 106/50 (68) 108/53 (71) 107/52 (70) 103/51 (68) Pulse Ox 99 99 100 100 O2 Delivery Venturi Mask Venturi Mask Venturi Mask Venturi Mask O2 Flow Rate 15.0 15.0 15.0 15.0 09/25/19 09/25/19 09/25/19 09/25/19 16:55 17:00 17:05 17:10 Pulse 143 141 141 140 Resp B/P (MAP) 108/54 (72) 98/52 (67) 103/54 (70) 110/53 (72) Pulse Ox 100 100 100 99 O2 Delivery Venturi Mask Venturi Mask Venturi Mask Venturi Mask O2 Flow Rate 15.0 15.0 15.0 15.0 09/25/19 09/25/1909/24/09/25/19 17:15 17:20 17:25 17:36 Pulse 139 138 136 136 Resp B/P (MAP) 80/53 (62) 104/55 (71) 107/52 (70) Pulse Ox 99 100 96 99 O2 Delivery Venturi Mask Venturi Mask Venturi Mask Venturi Mask O2 Flow Rate 15.0 15.0 15.0 15.0 Intake and Output 09/24/19 09/24/19 09/25/19 15:00 23:00 07:00 Intake Total 550 ml 2087 ml Output Total 415 ml 375 ml 505 ml Balance -415 ml 175 ml 1582 ml Hemodynamically unstable?: No Is patient in severe pain?: No Is NPO status required?: No JOVANY HARRISON MD Sep 25, 2019 19:32
[2019-09-25 20:55] LABS: BASE EXCESS ABG -7 mmol/L (-3-3); HCO3 ABG 20 mmol/L (21-28); PCO2 ABG 44 mmHg (35-46); PO2 ABG 108 mmHg (75-108); SAT O2 ABG 97 % (92-99)
[2019-09-25] MEDS: fentaNYL 50MCG/HR PATCH 1 PATCH PATCH.TD72 TD SCH (21:00)
[2019-09-25 21:03] LABS: FIO2 ABG 40
[2019-09-25] MEDS: MEROPENEM 1 GM in IV NORMAL SALINE 100ML 100 ML IV SCH (21:46)
[2019-09-25] MEDS ORDERED: [UNRECOGNIZED DRUG - OTHER] IV SCH ×8 (22:00)
[2019-09-25] MEDS ORDERED: DEXTROSE 70% IV SCH ×8 (22:00)
[2019-09-25] MEDS ORDERED: TOTAL PARENTERAL NUTRITION IV SCH ×8 (22:00)
[2019-09-25] MEDS ORDERED: AMINO ACID IV SCH ×8 (22:00)
[2019-09-25] MEDS ORDERED: SODIUM BICARB ADULT 8.4% 50 MEQ/50 ML DISP.SYRIN. IV ONE (22:00)
[2019-09-26] VITALS (24 sets, daily range): BP systolic 95–166; BP diastolic 54–89
[2019-09-26 00:44] LABS: HEMOGLOBIN 9.4 g/dL (12.0-15.5); RED BLOOD COUNT 3.14 x10^6/uL (3.50-5.40); RED CELL DISTRIBUTION WIDTH 16.8 % (11.5-14.5); WHITE BLOOD COUNT 19.8 x10^3/uL (4.0-11.0)
[2019-09-26] MEDS: INSULIN LISPRO 300 UNITS/3 ML VIAL. SQ SCH ×4 (00:50→18:27)
[2019-09-26] MEDS: fentaNYL PF VIAL 100 MCG/2 ML VIAL IVP PRN ×4 (00:52→22:29)
[2019-09-26] MEDS: IV NORMAL SALINE 1000ML BAG 1,000 ML IV SCH ×4 (02:31→22:33)
--- NOTE | 2019-09-26 07:32 | PDOC ---
PROGRESS NOTES Chief Complaint Chief Complaint A/P: Acute hypoxic Respiratory failure requiring mechanical ventilation (now extubated for several days but still with tracheostomy) Tracheostomy bilateral pleural effusions/pulm edema Sepsis Severe Acute gallstone pancreatitis (not a surgical candidate at this time) with necrosis Acute kidney failure now requiring dialysis Salpingitis Gallstones (Calculus of gallbladder with acute cholecystitis without obstruction) HTN Leukocytosis Hypoxia Uterine fibroid Intractable pain Intractable nausea Covid 19 negative. Acute on chronic anemia EEG: No seizure activityFever - better currently - intermittent could be from underlying pancreatitis blood cults 08/21 - neg so far ? Ileus with vomiting Abd distention - U/S and CT reviewed s/p 0.4 L of opaque, debris-containing ascites was removed 08/23 Acute pancreatitis with persistent necrosis - 08/14 status post KAYLIN drain placement + C paropsilosis. s/p additional drains Anemia - S/p PRBCs Cholelithiasis with thickening of the gallbladder wall. Leucocytosis improving JUANA, hyperkalemia, Metabolic acidosis off dialysis Acute hypoxic resp failure ,bilateral pleural effusion and atelectasis hypocalcemia Prediabetes HTN s/p trach ESRD on HD Hyperglycemia History of Present Illness History of Present Illness IR placed drain on 09/24. 4u PRBC after Hb drop. Hb 8.8 today. Off Levophed this morning. T-max 100.3. Much more lethargic today. 09/23/2019 Patient seen and examined on telemetry floor today This morning I had a couple of discussions with case management The issue is the patient will not wear her trach cap Without that she cannot advance her diet and is currently supposed to be on honey thick liquids I was going to talk to the patient about wearing her trach But when I arrived to the room she was lying on the floor with several nurses and therapist around Apparently she did walk to the end of the meyer then back and then collapsed onto the floor She had a bowel movement when this all happened Appears to be critically ill again Very shaky tremulous anxious has a stare in her eyes We got her back in bed I am extremely concerned about her long-term prognosis again 09/22/2019 Patient seen and examined in the ICU She remains critically ill is is extremely weak Chart reviewed Discussed with RN We decided to try some Prozac as she does seem depressed On IV TPN Still has NG tube 09/21/2019 Patient seen and examined in the ICU She remains critically ill We have been trying to hold off on her Ativan for the past 24 hours She is a little more awake but shaky and agitated and anxious seems depressed Discussed with RN Chart reviewed 09/20/2019 Patient seen and examined in the ICU She is a little more alert today but still quite ill Appears clammy and pale and depressed/anxious Discussed with RN Chart reviewed 09/19/2019 Patient seen and examined in the ICU She appears extremely ill She is tachypneic at 35 respirations per minute and tachycardic at 132 bpm She is extremely encephalopathic and shaky She appears clammy Chart reviewed Discussed with RN Prognosis extremely guarded at best 09/18/2019 Patient still in ICU Resting with no apparent distress Chart reviewed 09/17/2019 Patient seen and examined in the ICU She is wiping her face with a cough Discussed with RN Chart reviewed We hope to get her out of the ICU later today if possible 09/16/2019 Patient seen and examined in the ICU once again She is back on NG suction On IV Zosyn Has IV TPN Sedated with Precedex but anxious still Appears somewhat clammy and pale Chart reviewed Discussed with RN She remains critically ill 09/15/2019 Patient seen and examined in the ICU She has an NG that is clamped we are hoping to start some clear liquids but she looks quite ill She is on IV TPN Meropenem changed to IV Zosyn (agree) She has Lind to bedside drainage She is semi-sedated with Precedex Chart reviewed Discussed with RN She remains critically ill Seen bedside. Hb 8. She was just a bit hypoxic, had a mucous plug suctioned. Able to vocalize well with speaking valve, tells me we are being very hard on her and she would like to be drugged back to sleep. She wants to wake up and feel better. On trach shield, T max 100.4. afebrile this a.m. 09/13/2019 Patient seen and examined in the ICU She is up in the chair very frail trying to talk a little shaky Discussed with RN Chart reviewed 09/12/2019 Patient seen and examined in the ICU Patient up in the chair Having a severe coughing episode with a lot of phlegm coming out of her tracheostomy Discussed with RN Discussed with physical therapy Chart reviewed 09/10,. feels well, has been out of room in wheelchair no complaint, still weak, some with not wanting to wear her valve on trach cont other, may be able to work with speech tomorrow, juan ramon [place] to try, 09/09, anxiety is up today, she dislikes the valve still, shower and outside today . 09/08 she doesnt want to wear her passy-fantasma valve, discussed str and plan with her. speech following, needs swallow study, but needs to wear her valve longer, cont current able to walk some, walker 09/07 stronger, better, we discussed better oral care she would like to try swallow study, wants to try to eat, speech is following 09/07/2019 She remains in the ICU sitting up and working with OT, getting better if limit pain meds, may do better off the vent, Nurses trying to suction her, that is also improved, Chart reviewed 09/06/2019 Patient seen and examined in the ICU She had an episode yesterday of tachycardia and severe agitation we gave her some Ativan After that she seemed to have stroke symptoms but now that the Ativan has wore off her stroke symptoms have resolved She is on IV meropenem and daptomycin and micafungin Chart reviewed Discussed with RN Patient is still critically ill BRIEF OPERATIVE NOTE Pre-Op Diagnosis Pancreatitis with pseudocysts, suspected infection Post-Op Diagnosis same Procedure Performed CT abdominal Drains x 3 Surgeon Tesfaye Anesthesia Type: Conscious Sedation Findings 3 abdominal drains, 14F, with turbid pancreatic fluid and necrotic debris in each. Complications No immediate 08/26: Patient today somewhat restless and having bilious secretions from ET tube, imaging studies ordered, discussed with wellness consultant. Pretty poor prognosis, hopefully is not a fistula, poor surgical candidate. 08/27: Imaging with no acute events, she seems more stable today compared to yesterday. Encouraged as much activity as possible patient at high risk for severe depression. Vitals Vitals Vital Signs Date Time Temp Pulse Resp B/P (MAP) Pulse Ox O2 Delivery O2 Flow Rate FiO2 09/26/19 06:00 96 18 124/64 (84) 100 BiPAP/CPAP 09/26/19 04:00 98.8 98.8 09/25/19 17:36 15.0 Physical Exam Physical Exam GENERAL: Propped up in bed, lethargic, weak HEENT: NGT in place. Oral mucosa dry NECK: Tracheostomy LUNGS: Diminished aeration bases, no accessory muscle use HEART: S1, S2, tachy, regular ABDOMEN: Mild distention, bowel sounds present, soft, grimaces to palpation Right lateral side somewhat firm and bleeding from previous drain site. 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 LUE-PICC (09/15) without signs of complications General: Alert, Cooperative, No acute distress Heart: Regular rate, Normal S1, Normal S2, No murmurs, Gallops Lungs: Other (diminshed in bases, Rhonci in LLL) Abdomen: Soft, No tenderness Extremities: No clubbing, No cyanosis, No edema, Normal pulses, No tenderne ss/swelling Skin: Other (warm, dry) Labs LABS Laboratory Tests Test 09/25/19 08:08 09/25/19 11:30 09/25/19 13:20 09/25/19 18:05 Hemoglobin 8.3 g/dL (12.0-15.5) 9.6 g/dL (12.0-15.5) Hematocrit 26.0 % (36.0-47.0) 28.9 % (36.0-47.0) Mean Corpuscular Hemoglobin Concent 32 g/dL (31-37) 33 g/dL (31-37) Urine Collection Type Unknown Urine Color Yellow Urine Clarity Cloudy Urine pH 5.0 (<5.0-8.0) Urine Specific [place] 1.020 (1.000-1.030) Urine Protein 30 mg/dL (NEG-TRACE) Urine Glucose (UA) Negative mg/dL (NEG) Urine Ketones (Stick) Negative mg/dL (NEG) Urine Blood Negative (NEG) Urine Nitrite Negative (NEG) Urine Bilirubin Negative (NEG) Urine Urobilinogen Dipstick 0.2 mg/dL (0.2 mg/dL) Urine Leukocyte Esterase Small (NEG) Urine RBC 0 /HPF (0-2) Urine WBC 11-20 /HPF (0-4) Urine Squamous Epithelial Cells Mod /LPF Urine Transitional Epithelial Cells Mod /LPF Urine Amorphous Sediment Present /HPF Urine Bacteria Few /HPF (0-FEW) Urine Hyaline Casts Many /HPF Urine Granular Casts Many /HPF Urine Mucus Marked /LPF Urine Yeast Present /HPF White Blood Count 20.9 x10^3/uL (4.0-11.0) Red Blood Count 3.23 x10^6/uL (3.50-5.40) Mean Corpuscular Volume 89 fL (79-100) Mean Corpuscular Hemoglobin 30 pg (25-35) Red Cell Distribution Width 17.0 % (11.5-14.5) Platelet Count 433 x10^3/uL (140-400) O2 Saturation 95 % (92-99) Arterial Blood pH 7.25 (7.35-7.45) Arterial Blood pCO2 at Patient Temp 48 mmHg (35-46) Arterial Blood pO2 at Patient Temp 92 mmHg (75-108) Arterial Blood HCO3 21 mmol/L (21-28) Arterial Blood Base Excess -6 mmol/L (-3-3) FiO2 50 Test 09/25/19 18:30 09/25/19 18:37 09/25/19 20:45 09/26/19 00:30 White Blood Count 21.2 x10^3/uL (4.0-11.0) 19.8 x10^3/uL (4.0-11.0) Red Blood Count 2.51 x10^6/uL (3.50-5.40) 3.14 x10^6/uL (3.50-5.40) Hemoglobin 7.4 g/dL (12.0-15.5) 9.4 g/dL (12.0-15.5) Hematocrit 22.6 % (36.0-47.0) 28.0 % (36.0-47.0) Mean Corpuscular Volume 90 fL (79-100) 89 fL (79-100) Mean Corpuscular Hemoglobin 30 pg (25-35) 30 pg (25-35) Mean Corpuscular Hemoglobin Concent 33 g/dL (31-37) 34 g/dL (31-37) Red Cell Distribution Width 17.3 % (11.5-14.5) 16.8 % (11.5-14.5) Platelet Count 310 x10^3/uL (140-400) 325 x10^3/uL (140-400) Glucose (Fingerstick) 234 mg/dL (70-99) O2 Saturation 97 % (92-99) Arterial Blood pH 7.27 (7.35-7.45) Arterial Blood pCO2 at Patient Temp 44 mmHg (35-46) Arterial Blood pO2 at Patient Temp 108 mmHg (75-108) Arterial Blood HCO3 20 mmol/L (21-28) Arterial Blood Base Excess -7 mmol/L (-3-3) FiO2 40 Test 09/26/19 00:45 09/26/19 06:59 Glucose (Fingerstick) 320 mg/dL (70-99) 149 mg/dL (70-99) Assessment and Plan Assessmemt and Plan Problems Medical Problems: (1) Acute pancreatitis Status: Acute (2) Cholelithiasis Status: Acute Comment Review of Relevant I have reviewed the following items kolby (where applicable) has been applied. Labs Laboratory Tests Test 09/24/19 13:06 09/24/19 13:53 09/24/19 16:30 09/24/19 18:12 White Blood Count 16.9 x10^3/uL (4.0-11.0) Red Blood Count 2.48 x10^6/uL (3.50-5.40) Hemoglobin 7.2 g/dL (12.0-15.5) Hematocrit 22.1 % (36.0-47.0) Mean Corpuscular Volume 89 fL (79-100) Mean Corpuscular Hemoglobin 29 pg (25-35) Mean Corpuscular Hemoglobin Concent 33 g/dL (31-37) Red Cell Distribution Width 19.5 % (11.5-14.5) Platelet Count 448 x10^3/uL (140-400) Glucose (Fingerstick) 216 mg/dL (70-99) 199 mg/dL (70-99) O2 Saturation 82 % (92-99) Arterial Blood pH 7.36 (7.35-7.45) Arterial Blood pCO2 at Patient Temp 39 mmHg (35-46) Arterial Blood pO2 at Patient Temp 53 mmHg (75-108) Arterial Blood HCO3 22 mmol/L (21-28) Arterial Blood Base Excess -4 mmol/L (-3-3) FiO2 21 Test 09/24/19 18:24 09/25/19 00:27 09/25/19 05:15 09/25/19 06:50 White Blood Count 18.7 x10^3/uL (4.0-11.0) 20.0 x10^3/uL (4.0-11.0) Red Blood Count 3.07 x10^6/uL (3.50-5.40) 3.06 x10^6/uL (3.50-5.40) Hemoglobin 9.1 g/dL (12.0-15.5) 8.7 g/dL (12.0-15.5) Hematocrit 27.2 % (36.0-47.0) 27.3 % (36.0-47.0) Mean Corpuscular Volume 89 fL (79-100) 89 fL (79-100) Mean Corpuscular Hemoglobin 30 pg (25-35) 29 pg (25-35) Mean Corpuscular Hemoglobin Concent 33 g/dL (31-37) 32 g/dL (31-37) Red Cell Distribution Width 18.0 % (11.5-14.5) 18.5 % (11.5-14.5) Platelet Count 476 x10^3/uL (140-400) 451 x10^3/uL (140-400) Glucose (Fingerstick) 247 mg/dL (70-99) Neutrophils (%) (Auto) 88 % (31-73) Lymphocytes (%) (Auto) 8 % (24-48) Monocytes (%) (Auto) 3 % (0-9) Eosinophils (%) (Auto) 0 % (0-3) Basophils (%) (Auto) 0 % (0-3) Neutrophils # (Auto) 17.6 x10^3/uL (1.8-7.7) Lymphocytes # (Auto) 1.7 x10^3/uL (1.0-4.8) Monocytes # (Auto) 0.6 x10^3/uL (0.0-1.1) Eosinophils # (Auto) 0.0 x10^3/uL (0.0-0.7) Basophils # (Auto) 0.0 x10^3/uL (0.0-0.2) Sodium Level 147 mmol/L (136-145) Potassium Level 5.3 mmol/L (3.5-5.1) Chloride Level 113 mmol/L (98-107) Carbon Dioxide Level 25 mmol/L (21-32) Anion Gap 9 (6-14) Blood Urea Nitrogen 74 mg/dL (7-20) Creatinine 1.9 mg/dL (0.6-1.0) Estimated GFR (Cockcroft-Gault) 28.1 BUN/Creatinine Ratio 39 (6-20) Glucose Level 241 mg/dL (70-99) Calcium Level 10.8 mg/dL (8.5-10.1) Total Bilirubin 0.6 mg/dL (0.2-1.0) Aspartate Amino Transf (AST/SGOT) 27 U/L (15-37) Alanine Aminotransferase (ALT/SGPT) 20 U/L (14-59) Alkaline Phosphatase 104 U/L (46-116) Total Protein 6.3 g/dL (6.4-8.2) Albumin 1.8 g/dL (3.4-5.0) Albumin/Globulin Ratio 0.4 (1.0-1.7) Prothrombin Time 16.0 SEC (11.7-14.0) Prothromb Time International Ratio 1.3 (0.8-1.1) Activated Partial Thromboplast Time 32 SEC (24-38) Lactic Acid Level 1.7 mmol/L (0.4-2.0) Test 09/25/19 08:08 09/25/19 11:30 09/25/19 13:20 09/25/19 18:05 Hemoglobin 8.3 g/dL (12.0-15.5) 9.6 g/dL (12.0-15.5) Hematocrit 26.0 % (36.0-47.0) 28.9 % (36.0-47.0) Mean Corpuscular Hemoglobin Concent 32 g/dL (31-37) 33 g/dL (31-37) Urine Collection Type Unknown Urine Color Yellow Urine Clarity Cloudy Urine pH 5.0 (<5.0-8.0) Urine Specific [place] 1.020 (1.000-1.030) Urine Protein 30 mg/dL (NEG-TRACE) Urine Glucose (UA) Negative mg/dL (NEG) Urine Ketones (Stick) Negative mg/dL (NEG) Urine Blood Negative (NEG) Urine Nitrite Negative (NEG) Urine Bilirubin Negative (NEG) Urine Urobilinogen Dipstick 0.2 mg/dL (0.2 mg/dL) Urine Leukocyte Esterase Small (NEG) Urine RBC 0 /HPF (0-2) Urine WBC 11-20 /HPF (0-4) Urine Squamous Epithelial Cells Mod /LPF Urine Transitional Epithelial Cells Mod /LPF Urine Amorphous Sediment Present /HPF Urine Bacteria Few /HPF (0-FEW) Urine Hyaline Casts Many /HPF Urine Granular Casts Many /HPF Urine Mucus Marked /LPF Urine Yeast Present /HPF White Blood Count 20.9 x10^3/uL (4.0-11.0) Red Blood Count 3.23 x10^6/uL (3.50-5.40) Mean Corpuscular Volume 89 fL (79-100) Mean Corpuscular Hemoglobin 30 pg (25-35) Red Cell Distribution Width 17.0 % (11.5-14.5) Platelet Count 433 x10^3/uL (140-400) O2 Saturation 95 % (92-99) Arterial Blood pH 7.25 (7.35-7.45) Arterial Blood pCO2 at Patient Temp 48 mmHg (35-46) Arterial Blood pO2 at Patient Temp 92 mmHg (75-108) Arterial Blood HCO3 21 mmol/L (21-28) Arterial Blood Base Excess -6 mmol/L (-3-3) FiO2 50 Test 09/25/19 18:30 09/25/19 18:37 09/25/19 20:45 09/26/19 00:30 White Blood Count 21.2 x10^3/uL (4.0-11.0) 19.8 x10^3/uL (4.0-11.0) Red Blood Count 2.51 x10^6/uL (3.50-5.40) 3.14 x10^6/uL (3.50-5.40) Hemoglobin 7.4 g/dL (12.0-15.5) 9.4 g/dL (12.0-15.5) Hematocrit 22.6 % (36.0-47.0) 28.0 % (36.0-47.0) Mean Corpuscular Volume 90 fL (79-100) 89 fL (79-100) Mean Corpuscular Hemoglobin 30 pg (25-35) 30 pg (25-35) Mean Corpuscular Hemoglobin Concent 33 g/dL (31-37) 34 g/dL (31-37) Red Cell Distribution Width 17.3 % (11.5-14.5) 16.8 % (11.5-14.5) Platelet Count 310 x10^3/uL (140-400) 325 x10^3/uL (140-400) Glucose (Fingerstick) 234 mg/dL (70-99) O2 Saturation 97 % (92-99) Arterial Blood pH 7.27 (7.35-7.45) Arterial Blood pCO2 at Patient Temp 44 mmHg (35-46) Arterial Blood pO2 at Patient Temp 108 mmHg (75-108) Arterial Blood HCO3 20 mmol/L (21-28) Arterial Blood Base Excess -7 mmol/L (-3-3) FiO2 40 Test 09/26/19 00:45 09/26/19 06:59 Glucose (Fingerstick) 320 mg/dL (70-99) 149 mg/dL (70-99) Laboratory Tests Test 09/25/19 08:08 09/25/19 11:30 09/25/19 13:20 09/25/19 18:05 Hemoglobin 8.3 g/dL (12.0-15.5) 9.6 g/dL (12.0-15.5) Hematocrit 26.0 % (36.0-47.0) 28.9 % (36.0-47.0) Mean Corpuscular Hemoglobin Concent 32 g/dL (31-37) 33 g/dL (31-37) Urine Collection Type Unknown Urine Color Yellow Urine Clarity Cloudy Urine pH 5.0 (<5.0-8.0) Urine Specific [place] 1.020 (1.000-1.030) Urine Protein 30 mg/dL (NEG-TRACE) Urine Glucose (UA) Negative mg/dL (NEG) Urine Ketones (Stick) Negative mg/dL (NEG) Urine Blood Negative (NEG) Urine Nitrite Negative (NEG) Urine Bilirubin Negative (NEG) Urine Urobilinogen Dipstick 0.2 mg/dL (0.2 mg/dL) Urine Leukocyte Esterase Small (NEG) Urine RBC 0 /HPF (0-2) Urine WBC 11-20 /HPF (0-4) Urine Squamous Epithelial Cells Mod /LPF Urine Transitional Epithelial Cells Mod /LPF Urine Amorphous Sediment Present /HPF Urine Bacteria Few /HPF (0-FEW) Urine Hyaline Casts Many /HPF Urine Granular Casts Many /HPF Urine Mucus Marked /LPF Urine Yeast Present /HPF White Blood Count 20.9 x10^3/uL (4.0-11.0) Red Blood Count 3.23 x10^6/uL (3.50-5.40) Mean Corpuscular Volume 89 fL (79-100) Mean Corpuscular Hemoglobin 30 pg (25-35) Red Cell Distribution Width 17.0 % (11.5-14.5) Platelet Count 433 x10^3/uL (140-400) O2 Saturation 95 % (92-99) Arterial Blood pH 7.25 (7.35-7.45) Arterial Blood pCO2 at Patient Temp 48 mmHg (35-46) Arterial Blood pO2 at Patient Temp 92 mmHg (75-108) Arterial Blood HCO3 21 mmol/L (21-28) Arterial Blood Base Excess -6 mmol/L (-3-3) FiO2 50 Test 09/25/19 18:30 09/25/19 18:37 09/25/19 20:45 09/26/19 00:30 White Blood Count 21.2 x10^3/uL (4.0-11.0) 19.8 x10^3/uL (4.0-11.0) Red Blood Count 2.51 x10^6/uL (3.50-5.40) 3.14 x10^6/uL (3.50-5.40) Hemoglobin 7.4 g/dL (12.0-15.5) 9.4 g/dL (12.0-15.5) Hematocrit 22.6 % (36.0-47.0) 28.0 % (36.0-47.0) Mean Corpuscular Volume 90 fL (79-100) 89 fL (79-100) Mean Corpuscular Hemoglobin 30 pg (25-35) 30 pg (25-35) Mean Corpuscular Hemoglobin Concent 33 g/dL (31-37) 34 g/dL (31-37) Red Cell Distribution Width 17.3 % (11.5-14.5) 16.8 % (11.5-14.5) Platelet Count 310 x10^3/uL (140-400) 325 x10^3/uL (140-400) Glucose (Fingerstick) 234 mg/dL (70-99) O2 Saturation 97 % (92-99) Arterial Blood pH 7.27 (7.35-7.45) Arterial Blood pCO2 at Patient Temp 44 mmHg (35-46) Arterial Blood pO2 at Patient Temp 108 mmHg (75-108) Arterial Blood HCO3 20 mmol/L (21-28) Arterial Blood Base Excess -7 mmol/L (-3-3) FiO2 40 Test 09/26/19 00:45 09/26/19 06:59 Glucose (Fingerstick) 320 mg/dL (70-99) 149 mg/dL (70-99) Microbiology 09/17/19 Gram Stain - Final, Complete 09/17/19 Aerobic Culture - Final, Complete 09/04/19 Blood Culture - Final, Complete NO GROWTH AFTER 5 DAYS 08/24/19 Fungal Culture - Final, Complete 08/24/19 Fungal Culture Result 1 - Final, Complete 07/31/19 Urine Culture - Final, Complete 07/31/19 Urine Culture Result 1 (ALEXANDRA) - Final, Complete Medications Current Medications Sodium Chloride 1,000 ml @ 1,000 mls/hr Q1H IV Last administered on 07/04/19at 03:00; Start 07/04/19 at 03:00; Stop 07/04/19 at 03:59; Status DC Ondansetron HCl (Zofran) 4 mg 1X ONCE IVP Last administered on 07/04/19at 03:27; Start 07/04/19 at 03:00; Stop 07/04/19 at 03:01; Status DC Morphine Sulfate (Morphine Sulfate) 4 mg 1X ONCE IV ; Start 07/04/19 at 03:00; Stop 07/04/19 at 03:01; Status Cancel Ketorolac Tromethamine (Toradol 30mg Vial) 30 mg 1X ONCE IV Last administered on 07/04/19at 02:54; Start 07/04/19 at 03:00; Stop 07/04/19 at 03:01; Status DC Fentanyl Citrate (Fentanyl 2ml Vial) 25 mcg 1X ONCE IVP Last administered on 07/04/19at 03:23; Start 07/04/19 at 03:30; Stop 07/04/19 at 03:31; Status DC Fentanyl Citrate (Fentanyl 2ml Vial) 100 mcg STK-MED ONCE .ROUTE ; Start 07/04/19 at 03:18; Stop 07/04/19 at 03:18; Status DC Iohexol (Omnipaque 350 Mg/ml) 90 ml 1X ONCE IV Last administered on 07/04/19at 03:25; Start 07/04/19 at 03:30; Stop 07/04/19 at 03:31; Status DC Info (CONTRAST GIVEN -- Rx MONITORING) 1 each PRN DAILY PRN MC SEE COMMENTS; Start 07/04/19 at 03:30; Stop 07/06/19 at 03:29; Status DC Hydromorphone HCl (Dilaudid) 0.5 mg 1X ONCE IV Last administered on 07/04/19at 03:55; Start 07/04/19 at 04:30; Stop 07/04/19 at 04:32; Status DC Ondansetron HCl (Zofran) 4 mg PRN Q8HRS PRN IV NAUSEA/VOMITING 1ST CHOICE; Start 07/04/19 at 05:00; Stop 07/04/19 at 09:27; Status DC Morphine Sulfate (Morphine Sulfate) 2 mg PRN Q2HR PRN IV SEVERE PAIN 7-10 Last administered on 07/05/19at 12:26; Start 07/04/19 at 05:00; Stop 07/05/19 at 14:15; Status DC Sodium Chloride 1,000 ml @ 125 mls/hr Q8H IV Last administered on 07/04/19at 20:56; Start 07/04/19 at 05:00; Stop 07/05/19 at 04:59; Status DC Hydromorphone HCl (Dilaudid) 0.5 mg PRN Q3HRS PRN IV SEVERE PAIN 7-10 Last administered on 07/05/19at 10:06; Start 07/04/19 at 05:00; Stop 07/05/19 at 12:01; Status DC Piperacillin Sod/ Tazobactam Sod 4.5 gm/Sodium Chloride 100 ml @ 200 mls/hr 1X ONCE IV Last administered on 07/04/19at 05:44; Start 07/04/19 at 06:00; Stop 07/04/19 at 06:29; Status DC Ondansetron HCl (Zofran) 4 mg PRN Q4HRS PRN IV NAUSEA/VOMITING 1ST CHOICE Last administered on 09/25/19at 05:18; Start 07/04/19 at 09:30 Insulin Human Lispro (HumaLOG) 0-9 UNITS Q6HRS SQ Last administered on 09/26/19at 00:50; Start 07/04/19 at 09:30 Dextrose (Dextrose 50%-Water Syringe) 12.5 gm PRN Q15MIN PRN IV SEE COMMENTS; Start 07/04/19 at 09:30 Pantoprazole Sodium (PROTONIX VIAL for IV PUSH) 40 mg DAILYAC IVP Last adminis tered on 09/25/19at 11:01; Start 07/04/19 at 11:30 Prochlorperazine Edisylate (Compazine) 10 mg PRN Q6HRS PRN IV NAUSEA/VOMITING, 2nd CHOICE Last administered on 09/25/19at 11:00; Start 07/04/19 at 17:45 Atenolol (Tenormin) 100 mg DAILY PO ; Start 07/05/19 at 09:00; Stop 07/04/19 at 20:08; Status DC Metoprolol Tartrate (Lopressor Vial) 2.5 mg Q6HRS IVP Last administered on 07/05/19at 05:51; Start 07/04/19 at 20:15; Stop 07/05/19 at 10:02; Status DC Metoprolol Tartrate (Lopressor Vial) 5 mg Q6HRS IVP Last administered on 07/14/19at 00:12; Start 07/05/19 at 10:15; Stop 07/16/19 at 08:48; Status DC Hydromorphone HCl (Dilaudid) 1 mg PRN Q3HRS PRN IV SEVERE PAIN 7-10 Last administered on 07/11/19at 05:13; Start 07/05/19 at 12:00; Stop 07/19/19 at 00:25; Status DC Lidocaine HCl (Buffered Lidocaine 1%) 3 ml STK-MED ONCE .ROUTE ; Start 07/05/19 at 12:55; Stop 07/05/19 at 12:56; Status DC Albumin Human 500 ml @ 125 mls/hr 1X ONCE IV Last administered on 07/05/19at 14:33; Start 07/05/19 at 14:30; Stop 07/05/19 at 18:32; Status DC Norepinephrine Bitartrate 8 mg/ Dextrose 258 ml @ 17.299 mls/ hr CONT PRN IV PER PROTOCOL Last administered on 08/02/19at 12:48; Start 07/05/19 at 15:30; Stop 08/05/19 at 09:19; Status DC Sodium Chloride 1,000 ml @ 125 mls/hr Q8H IV Last administered on 07/05/19at 21:04; Start 07/05/19 at 16:00; Stop 07/06/19 at 02:42; Status DC Albumin Human 500 ml @ 125 mls/hr PRN BID PRN IV After every 2L NSS & BP < 90mm Last administered on 09/24/19at 11:40; Start 07/05/19 at 16:00 Iohexol (Omnipaque 300 Mg/ml) 60 ml 1X ONCE IV Last administered on 07/05/19at 17:20; Start 07/05/19 at 17:00; Stop 07/05/19 at 17:01; Status DC Info (CONTRAST GIVEN -- Rx MONITORING) 1 each PRN DAILY PRN MC SEE COMMENTS; Start 07/05/19 at 17:00; Stop 07/07/19 at 16:59; Status DC Meropenem 1 gm/ Sodium Chloride 100 ml @ 200 mls/hr Q8HRS IV Last administered on 07/06/19at 05:45; Start 07/05/19 at 20:00; Stop 07/06/19 at 08:48; Status DC Furosemide (Lasix) 40 mg 1X ONCE IVP Last administered on 07/05/19at 22:12; Start 07/05/19 at 22:30; Stop 07/05/19 at 22:31; Status DC Calcium Chloride 1000 mg/Sodium Chloride 110 ml @ 220 mls/hr 1X ONCE IV Last administered on 07/05/19at 22:11; Start 07/05/19 at 22:30; Stop 07/05/19 at 22:59; Status DC Albuterol Sulfate (Ventolin Neb Soln) 2.5 mg 1X ONCE NEB Last administered on 07/06/19at 00:56; Start 07/05/19 at 22:30; Stop 07/05/19 at 22:31; Status DC Insulin Human Regular (HumuLIN R VIAL) 5 unit 1X ONCE IV Last administered on 07/05/19at 22:14; Start 07/05/19 at 22:30; Stop 07/05/19 at 22:31; Status DC Magnesium Sulfate 50 ml @ 25 mls/hr 1X ONCE IV Last administered on 07/06/19at 02:57; Start 07/06/19 at 03:00; Stop 07/06/19 at 04:59; Status DC Calcium Gluconate 1000 mg/Sodium Chloride 110 ml @ 220 mls/hr 1X ONCE IV Last administered on 07/06/19at 02:46; Start 07/06/19 at 03:00; Stop 07/06/19 at 03:29; Status DC Sodium Chloride 1,000 ml @ 200 mls/hr Q5H IV Last administered on 07/06/19at 02:46; Start 07/06/19 at 03:00; Stop 07/06/19 at 10:21; Status DC Calcium Gluconate 1000 mg/Sodium Chloride 110 ml @ 220 mls/hr 1X ONCE IV Last administered on 07/06/19at 03:21; Start 07/06/19 at 03:30; Stop 07/06/19 at 03:59; Status DC Sodium Bicarbonate 50 meq/Sodium Chloride 1,050 ml @ 75 mls/hr Q14H IV Last administered on 07/10/19at 21:10; Start 07/06/19 at 07:30; Stop 07/11/19 at 10:28; Status DC Calcium Gluconate 2000 mg/Sodium Chloride 120 ml @ 220 mls/hr 1X ONCE IV Last administered on 07/06/19at 09:05; Start 07/06/19 at 07:30; Stop 07/06/19 at 08:02; Status DC Lidocaine HCl (Xylocaine-Mpf 1% 2ml Vial) 2 ml STK-MED ONCE .ROUTE ; Start 07/06/19 at 08:47; Stop 07/06/19 at 08:47; Status DC Meropenem 500 mg/ Sodium Chloride 50 ml @ 100 mls/hr Q12HR IV Last administered on 07/11/19at 21:01; Start 07/06/19 at 18:00; Stop 07/12/19 at 07:58; Status DC Lidocaine HCl (Buffered Lidocaine 1%) 3 ml STK-MED ONCE .ROUTE ; Start 07/06/19 at 09:46; Stop 07/06/19 at 09:46; Status DC Lidocaine HCl (Buffered Lidocaine 1%) 6 ml 1X ONCE INJ Last administered on 07/06/19at 10:26; Start 07/06/19 at 10:15; Stop 07/06/19 at 10:16; Status DC Info (Tpn Per Pharmacy) 1 each PRN DAILY PRN MC SEE COMMENTS Last administered on 09/25/19at 08:44; Start 07/06/19 at 12:00 Sodium Chloride 1,000 ml @ 1,000 mls/hr Q1H PRN IV hypotension; Start 07/06/19 at 12:07; Stop 07/06/19 at 18:06; Status DC Diphenhydramine HCl (Benadryl) 25 mg 1X PRN PRN IV ITCHING; Start 07/06/19 at 12:15; Stop 07/07/19 at 12:14; Status DC Diphenhydramine HCl (Benadryl) 25 mg 1X PRN PRN IV ITCHING; Start 07/06/19 at 12:15; Stop 07/07/19 at 12:14; Status DC Sodium Chloride 1,000 ml @ 400 mls/hr Q2H30M PRN IV PATENCY; Start 07/06/19 at 12:07; Stop 07/07/19 at 00:06; Status DC Info (PHARMACY MONITORING -- do not chart) 1 each PRN DAILY PRN MC SEE COMMENTS; Start 07/06/19 at 12:15; Stop 07/08/19 at 08:13; Status DC Sodium Chloride 90 meq/Calcium Gluconate 10 meq/ Multivitamins 10 ml/Chromium/ Copper/Manganese/ Seleni/Zn 1 ml/ Total Parenteral Nutrition/Amino Acids/Dextrose/ Fat Emulsion Intravenous 55.005 ml @ 2.292 mls/hr TPN CONT IV ; Start 07/06/19 at 22:00; Stop 07/06/19 at 12:33; Status DC Info (Tpn Per Pharmacy) 1 each PRN DAILY PRN MC SEE COMMENTS; Start 07/06/19 at 12:30; Status UNV Sodium Chloride 90 meq/Calcium Gluconate 10 meq/ Multivitamins 10 ml/Chromium/ Copper/Manganese/ Seleni/Zn 0.5 ml/ Total Parenteral Nutrition/Amino Acids/Dextrose/ Fat Emulsion Intravenous 1,512 ml @ 63 mls/hr TPN CONT IV Last administered on 07/06/19at 22:06; Start 07/06/19 at 22:00; Stop 07/07/19 at 21:59; Status DC Calcium Carbonate/ Glycine (Tums) 500 mg PRN AFTMEALHC PRN PO INDIGESTION; Start 07/06/19 at 17:45; Stop 08/31/19 at 10:25; Status DC Calcium Gluconate (Calcium Gluconate) 2,000 mg 1X ONCE IVP Last administered on 07/07/19at 02:19; Start 07/07/19 at 02:15; Stop 07/07/19 at 02:16; Status DC Calcium Chloride 3000 mg/Sodium Chloride 1,030 ml @ 50 mls/hr [id number] IV Last administered on 07/09/19at 02:17; Start 07/07/19 at 08:00; Stop 07/09/19 at 15:23; Status DC Lorazepam (Ativan Inj) 1 mg PRN Q4HRS PRN IVP ANXIETY / AGITATION, 2nd choic Last administered on 08/05/19at 03:51; Start 07/07/19 at 09:00; Stop 08/05/19 at 09:19; Status DC Sodium Chloride 1,000 ml @ 1,000 mls/hr Q1H PRN IV hypotension; Start 07/07/19 at 08:56; Stop 07/07/19 at 14:55; Status DC Albumin Human 200 ml @ 200 mls/hr 1X PRN PRN IV Hypotension; Start 07/07/19 at 09:00; Stop 07/07/19 at 14:59; Status DC Diphenhydramine HCl (Benadryl) 25 mg 1X PRN PRN IV ITCHING; Start 07/07/19 at 09:00; Stop 07/08/19 at 08:59; Status DC Diphenhydramine HCl (Benadryl) 25 mg 1X PRN PRN IV ITCHING; Start 07/07/19 at 09:00; Stop 07/08/19 at 08:59; Status DC Sodium Chloride 1,000 ml @ 400 mls/hr Q2H30M PRN IV PATENCY; Start 07/07/19 at 08:56; Stop 07/07/19 at 20:55; Status DC Info (PHARMACY MONITORING -- do not chart) 1 each PRN DAILY PRN MC SEE COMMENTS; Start 07/07/19 at 09:00; Status UNV Info (PHARMACY MONITORING -- do not chart) 1 each PRN DAILY PRN MC SEE COMMENTS; Start 07/07/19 at 09:00; Stop 07/08/19 at 08:13; Status DC Digoxin (Lanoxin) 500 mcg 1X ONCE IV Last administered on 07/07/19at 10:04; Start 07/07/19 at 10:00; Stop 07/07/19 at 10:01; Status DC Digoxin (Lanoxin) 125 mcg 1X ONCE IV Last administered on 07/07/19at 17:10; Start 07/07/19 at 18:00; Stop 07/07/19 at 18:01; Status DC Magnesium Sulfate 100 ml @ 25 mls/hr 1X ONCE IV Last administered on 07/07/19at 12:48; Start 07/07/19 at 13:00; Stop 07/07/19 at 16:59; Status DC Sodium Chloride 90 meq/Magnesium Sulfate 10 meq/ Calcium Gluconate 20 meq/ Multivitamins 10 ml/Chromium/ Copper/Manganese/ Seleni/Zn 0.5 ml/ Total Parenteral Nutrition/Amino Acids/Dextrose/ Fat Emulsion Intravenous 1,512 ml @ 63 mls/hr TPN CONT IV Last administered on 07/07/19at 22:25; Start 07/07/19 at 22:00; Stop 07/08/19 at 21:59; Status DC Sodium Chloride 1,000 ml @ 1,000 mls/hr Q1H PRN IV hypotension; Start 07/08/19 at 08:05; Stop 07/08/19 at 14:04; Status DC Albumin Human 200 ml @ 200 mls/hr 1X ONCE IV Last administered on 07/08/19at 08:57; Start 07/08/19 at 08:15; Stop 07/08/19 at 09:14; Status DC Diphenhydramine HCl (Benadryl) 25 mg 1X PRN PRN IV ITCHING; Start 07/08/19 at 08:15; Stop 07/09/19 at 08:14; Status DC Diphenhydramine HCl (Benadryl) 25 mg 1X PRN PRN IV ITCHING; Start 07/08/19 at 08:15; Stop 07/09/19 at 08:14; Status DC Sodium Chloride 1,000 ml @ 400 mls/hr Q2H30M PRN IV PATENCY; Start 07/08/19 at 08:05; Stop 07/08/19 at 20:04; Status DC Info (PHARMACY MONITORING -- do not chart) 1 each PRN DAILY PRN MC SEE COMMENTS; Start 07/08/19 at 08:15; Stop 07/12/19 at 07:57; Status DC Sodium Chloride 90 meq/Potassium Chloride 15 meq/ Potassium Phosphate 10 mmol/ Magnesium Sulfate 10 meq/Calcium Gluconate 20 meq/ Multivitamins 10 ml/Chromium/ Copper/Manganese/ Seleni/Zn 0.5 ml/ Total Parenteral Nutrition/Amino Acids/Dextrose/ Fat Emulsion Intravenous 1,512 ml @ 63 mls/hr TPN CONT IV Last administered on 07/08/19at 21:01; Start 07/08/19 at 22:00; Stop 07/09/19 at 21:59; Status DC Potassium Chloride/Water 100 ml @ 100 mls/hr 1X ONCE IV Last administered on 07/08/19at 14:09; Start 07/08/19 at 14:00; Stop 07/08/19 at 14:59; Status DC Benzocaine (Hurricaine One) 1 spray 1X ONCE MM Last administered on 07/08/19at 16:38; Start 07/08/19 at 14:30; Stop 07/08/19 at 14:31; Status DC Lidocaine HCl (Glydo (Lidocaine) Jelly) 1 ramu 1X ONCE MM Last administered on 07/08/19at 16:38; Start 07/08/19 at 14:30; Stop 07/08/19 at 14:31; Status DC Linezolid/Dextrose 300 ml @ 300 mls/hr Q12HR IV Last administered on 07/14/19at 21:04; Start 07/08/19 at 20:00; Stop 07/15/19 at 07:50; Status DC Acetaminophen (Tylenol) 650 mg PRN Q6HRS PRN PO MILD PAIN / TEMP; Start 07/09/19 at 03:30; Stop 07/09/19 at 03:36; Status DC Acetaminophen (Tylenol) 650 mg PRN Q6HRS PRN PEG MILD PAIN / TEMP Last administered on 08/04/19at 19:56; Start 07/09/19 at 03:36; Stop 08/31/19 at 10:25; Status DC Sodium Chloride 1,000 ml @ 1,000 mls/hr Q1H PRN IV hypotension; Start 07/09/19 at 07:50; Stop 07/09/19 at 13:49; Status DC Albumin Human 200 ml @ 200 mls/hr 1X PRN PRN IV Hypotension; Start 07/09/19 at 08:00; Stop 07/09/19 at 13:59; Status DC Sodium Chloride (Normal Saline Flush) 10 ml 1X PRN PRN IV AP catheter pack; Start 07/09/19 at 08:00; Stop 07/10/19 at 07:59; Status DC Sodium Chloride (Normal Saline Flush) 10 ml 1X PRN PRN IV [employer]ON catheter pack; Start 07/09/19 at 08:00; Stop 07/10/19 at 07:59; Status DC Sodium Chloride 1,000 ml @ 400 mls/hr Q2H30M PRN IV PATENCY; Start 07/09/19 at 07:50; Stop 07/09/19 at 19:49; Status DC Info (PHARMACY MONITORING -- do not chart) 1 each PRN DAILY PRN MC SEE COMMENTS; Start 07/09/19 at 08:00; Status UNV Info (PHARMACY MONITORING -- do not chart) 1 each PRN DAILY PRN MC SEE COMMENTS; Start 07/09/19 at 08:00; Stop 07/11/19 at 08:25; Status DC Sodium Chloride 90 meq/Potassium Chloride 15 meq/ Potassium Phosphate 10 mmol/ Magnesium Sulfate 10 meq/Calcium Gluconate 20 meq/ Multivitamins 10 ml/Chromium/ Copper/Manganese/ Seleni/Zn 0.5 ml/ Total Parenteral Nutrition/Amino Acids/Dextrose/ Fat Emulsion Intravenous 1,512 ml @ 63 mls/hr TPN CONT IV Last administered on 07/09/19at 20:57; Start 07/09/19 at 22:00; Stop 07/10/19 at 21:59; Status DC Sodium Chloride 90 meq/Potassium Chloride 15 meq/ Potassium Phosphate 15 mmol/ Magnesium Sulfate 10 meq/Calcium Gluconate 20 meq/ Multivitamins 10 ml/Chromium/ Copper/Manganese/ Seleni/Zn 0.5 ml/ Total Parenteral Nutrition/Amino A cids/Dextrose/ Fat Emulsion Intravenous 1,512 ml @ 63 mls/hr TPN CONT IV ; Start 07/10/19 at 22:00; Stop 07/10/19 at 14:16; Status DC Sodium Chloride 90 meq/Potassium Chloride 15 meq/ Potassium Phosphate 15 mmol/ Magnesium Sulfate 10 meq/Calcium Gluconate 20 meq/ Multivitamins 10 ml/Chromium/ Copper/Manganese/ Seleni/Zn 0.5 ml/ Total Parenteral Nutrition/Amino Acids/Dextrose/ Fat Emulsion Intravenous 1,200 ml @ 50 mls/hr TPN CONT IV ; Start 07/10/19 at 22:00; Stop 07/10/19 at 14:17; Status DC Sodium Chloride 90 meq/Potassium Chloride 15 meq/ Potassium Phosphate 10 mmol/ Magnesium Sulfate 10 meq/Calcium Gluconate 20 meq/ Multivitamins 10 ml/Chromium/ Copper/Manganese/ Seleni/Zn 0.5 ml/ Total Parenteral Nutrition/Amino Acids/Dextrose/ Fat Emulsion Intravenous 1,200 ml @ 50 mls/hr TPN CONT IV Last administered on 07/10/19at 23:29; Start 07/10/19 at 22:00; Stop 07/11/19 at 21:59; Status DC Sodium Chloride 1,000 ml @ 1,000 mls/hr Q1H PRN IV hypotension; Start 07/11/19 at 07:28; Stop 07/11/19 at 13:27; Status DC Albumin Human 200 ml @ 200 mls/hr 1X ONCE IV Last administered on 07/11/19at 08:51; Start 07/11/19 at 07:30; Stop 07/11/19 at 08:29; Status DC Diphenhydramine HCl (Benadryl) 25 mg 1X PRN PRN IV ITCHING; Start 07/11/19 at 07:30; Stop 07/12/19 at 07:29; Status DC Diphenhydramine HCl (Benadryl) 25 mg 1X PRN PRN IV ITCHING; Start 07/11/19 at 07:30; Stop 07/12/19 at 07:29; Status DC Sodium Chloride 1,000 ml @ 400 mls/hr Q2H30M PRN IV PATENCY; Start 07/11/19 at 07:28; Stop 07/11/19 at 19:27; Status DC Info (PHARMACY MONITORING -- do not chart) 1 each PRN DAILY PRN MC SEE COMMENTS; Start 07/11/19 at 07:30; Stop 07/22/19 at 13:01; Status DC Metronidazole 100 ml @ 100 mls/hr Q6HRS IV Last administered on 07/27/19at 06:26; Start 07/11/19 at 08:30; Stop 07/27/19 at 09:58; Status DC Micafungin Sodium 100 mg/Dextrose 100 ml @ 100 mls/hr Q24H IV Last administered on 08/18/19at 08:18; Start 07/11/19 at 09:00; Stop 08/18/19 at 20:58; Status DC Propofol 0 ml @ As Directed STK-MED ONCE IV ; Start 07/11/19 at 07:53; Stop 07/11/19 at 07:53; Status DC Etomidate (Amidate) 20 mg STK-MED ONCE IV ; Start 07/11/19 at 07:53; Stop 07/11/19 at 07:54; Status DC Midazolam HCl (Versed) 5 mg STK-MED ONCE .ROUTE ; Start 07/11/19 at 07:57; Stop 07/11/19 at 07:57; Status DC Fentanyl Citrate 30 ml @ 0 mls/hr CONT PRN IV SEE PROTOCOL Last administered on 08/05/19at 06:12; Start 07/11/19 at 08:15; Stop 08/05/19 at 09:19; Status DC Artificial Tears (Artificial Tears) 1 drop PRN Q1HR PRN OU DRY EYE, 1st choice; Start 07/11/19 at 08:15; Stop 08/17/19 at 05:31; Status DC Midazolam HCl 50 mg/Sodium Chloride 50 ml @ 0 mls/hr CONT PRN IV SEE PROTOCOL Last administered on 07/14/19at 22:39; Start 07/11/19 at 08:15; Stop 07/16/19 at 15:59; Status DC Etomidate (Amidate) 8 mg 1X ONCE IV Last administered on 07/11/19at 08:33; Start 07/11/19 at 08:30; Stop 07/11/19 at 08:31; Status DC Succinylcholine Chloride (Anectine) 120 mg 1X ONCE IV Last administered on 07/11/19at 08:34; Start 07/11/19 at 08:30; Stop 07/11/19 at 08:31; Status DC Midazolam HCl (Versed) 5 mg 1X ONCE IV ; Start 07/11/19 at 08:30; Stop 07/11/19 at 08:31; Status DC Potassium Chloride 15 meq/ Bicarbonate Dialysis Soln w/ out KCl 5,007.5 ml @ 1,000 mls/ hr Q5H1M IV Last administered on 07/12/19at 11:11; Start 07/11/19 at 12:00; Stop 07/12/19 at 11:15; Status DC Potassium Chloride 15 meq/ Bicarbonate Dialysis Soln w/ out KCl 5,007.5 ml @ 1,000 mls/ hr Q5H1M IV Last administered on 07/12/19at 11:12; Start 07/11/19 at 12:00; Stop 07/12/19 at 11:17; Status DC Potassium Chloride 15 meq/ Bicarbonate Dialysis Soln w/ out KCl 5,007.5 ml @ 1,000 mls/ hr Q5H1M IV Last administered on 07/12/19at 11:11; Start 07/11/19 at 12:00; Stop 07/12/19 at 11:19; Status DC Sodium Chloride 90 meq/Potassium Chloride 15 meq/ Potassium Phosphate 10 mmol/ Magnesium Sulfate 10 meq/Calcium Gluconate 20 meq/ Multivitamins 10 ml/Chromium/ Copper/Manganese/ Seleni/Zn 0.5 ml/ Total Parenteral Nutrition/Amino Acids/Dextrose/ Fat Emulsion Intravenous 1,400 ml @ 58.333 mls/ hr TPN CONT IV Last administered on 07/11/19at 21:42; Start 07/11/19 at 22:00; Stop 07/12/19 at 21:59; Status DC Heparin Sodium (Porcine) (Heparin Sodium) 5,000 unit Q8HRS SQ Last administered on 07/16/19at 05:55; Start 07/11/19 at 15:00; Stop 07/16/19 at 13:28; Status DC Meropenem 500 mg/ Sodium Chloride 50 ml @ 100 mls/hr Q6HRS IV Last administered on 07/13/19at 06:00; Start 07/12/19 at 09:00; Stop 07/13/19 at 07:29; Status DC Potassium Phosphate 20 mmol/ Sodium Chloride 106.6667 ml @ 51.667 m... 1X ONCE IV Last administered on 07/12/19at 11:22; Start 07/12/19 at 10:15; Stop 07/12/19 at 12:18; Status DC Acetaminophen (Tylenol Supp) 650 mg PRN Q6HRS PRN MA MILD PAIN / TEMP > 100.3'F Last administered on 09/25/19at 14:41; Start 07/12/19 at 10:30 Potassium Chloride/Water 100 ml @ 100 mls/hr Q1H IV Last administered on 07/12/19at 12:12; Start 07/12/19 at 11:00; Stop 07/12/19 at 12:59; Status DC Potassium Chloride 20 meq/ Bicarbonate Dialysis Soln w/ out KCl 5,010 ml @ 1,000 mls/hr Q5H1M IV Last administered on 07/13/19at 08:48; Start 07/12/19 at 12:00; Stop 07/13/19 at 13:03; Status DC Potassium Chloride 20 meq/ Bicarbonate Dialysis Soln w/ out KCl 5,010 ml @ 1,000 mls/hr Q5H1M IV Last administered on 07/17/19at 14:52; Start 07/12/19 at 11:30; Stop 07/17/19 at 19:59; Status DC Potassium Chloride 20 meq/ Bicarbonate Dialysis Soln w/ out KCl 5,010 ml @ 1,000 mls/hr Q5H1M IV Last administered on 07/17/19at 14:53; Start 07/12/19 at 11:30; Stop 07/17/19 at 19:59; Status DC Sodium Chloride 90 meq/Potassium Chloride 15 meq/ Potassium Phosphate 15 mmol/ Magnesium Sulfate 10 meq/Calcium Gluconate 15 meq/ Multivitamins 10 ml/Chromium/ Copper/Manganese/ Seleni/Zn 0.5 ml/ Total Parenteral Nutrition/Amino Acids/Dextrose/ Fat Emulsion Intravenous 1,400 ml @ 58.333 mls/ hr TPN CONT IV Last administered on 07/12/19at 22:17; Start 07/12/19 at 22:00; Stop 07/13/19 at 21:59; Status DC Cefepime HCl (Maxipime) 2 gm Q12HR IVP Last administered on 07/26/19at 20:56; Start 07/13/19 at 09:00; Stop 07/27/19 at 09:58; Status DC Daptomycin 500 mg/ Sodium Chloride 50 ml @ 100 mls/hr Q48H IV Last administered on 07/29/19at 09:57; Start 07/13/19 at 08:30; Stop 4/10/20 at 10:07; Status DC Lidocaine HCl (Buffered Lidocaine 1%) 3 ml 1X ONCE INJ Last administered on 07/13/19at 10:27; Start 07/13/19 at 10:30; Stop 07/13/19 at 10:31; Status DC Potassium Phosphate 20 mmol/ Sodium Chloride 106.6667 ml @ 51.667 m... 1X ONCE IV Last administered on 07/13/19at 12:51; Start 07/13/19 at 13:00; Stop 07/13/19 at 15:03; Status DC Sodium Chloride 90 meq/Potassium Chloride 15 meq/ Potassium Phosphate 18 mmol/ Magnesium Sulfate 8 meq/Calcium Gluconate 15 meq/ Multivitamins 10 ml/Chromium/ Copper/Manganese/ Seleni/Zn 0.5 ml/ Total Parenteral Nutrition/Amino Acids/Dextrose/ Fat Emulsion Intravenous 1,400 ml @ 58.333 mls/ hr TPN CONT IV Last administered on 07/13/19at 22:16; Start 07/13/19 at 22:00; Stop 07/14/19 at 21:59; Status DC Potassium Chloride 20 meq/ Bicarbonate Dialysis Soln w/ out KCl 5,010 ml @ 1,000 mls/hr Q5H1M IV Last administered on 07/17/19at 14:54; Start 07/13/19 at 16:00; Stop 07/17/19 at 19:59; Status DC Multi-Ingred Cream/Lotion/Oil/ Oint (Artificial Tears Eye Ointment) 1 ramu PRN Q1HR PRN OU DRY EYE, 2nd choice Last administered on 08/01/19at 08:19; Start 07/13/19 at 17:30; Stop 09/21/19 at 14:39; Status DC Sodium Chloride 90 meq/Potassium Chloride 15 meq/ Potassium Phosphate 18 mmol/ Magnesium Sulfate 8 meq/Calcium Gluconate 15 meq/ Multivitamins 10 ml/Chromium/ Copper/Manganese/ Seleni/Zn 0.5 ml/ Total Parenteral Nutrition/Amino Acids/Dextrose/ Fat Emulsion Intravenous 1,400 ml @ 58.333 mls/ hr TPN CONT IV Last administered on 07/14/19at 22:00; Start 07/14/19 at 22:00; Stop 07/15/19 at 21:59; Status DC Albumin Human 500 ml @ 125 mls/hr 1X ONCE IV ; Start 07/14/19 at 14:15; Stop 07/14/19 at 18:14; Status DC Sodium Chloride 90 meq/Potassium Chloride 15 meq/ Potassium Phosphate 18 mmol/ Magnesium Sulfate 8 meq/Calcium Gluconate 15 meq/ Multivitamins 10 ml/Chromium/ Copper/Manganese/ Seleni/Zn 0.5 ml/ Insulin Human Regular 10 unit/ Total Parenteral Nutrition/Amino Acids/Dextrose/ Fat Emulsion Intravenous 1,400 ml @ 58.333 mls/ hr TPN CONT IV Last administered on 07/15/19at 21:43; Start 07/15/19 at 22:00; Stop 07/16/19 at 21:59; Status DC Lidocaine HCl (Buffered Lidocaine 1%) 3 ml STK-MED ONCE .ROUTE ; Start 07/13/19 at 10:00; Stop 07/15/19 at 13:57; Status DC Midazolam HCl 100 mg/Sodium Chloride 100 ml @ 7 mls/hr CONT PRN IV SEE PROTOCOL Last administered on 07/27/19at 15:35; Start 07/16/19 at 16:00; Stop 09/21/19 at 14:38; Status DC Sodium Chloride 90 meq/Potassium Chloride 15 meq/ Potassium Phosphate 18 mmol/ Magnesium Sulfate 8 meq/Calcium Gluconate 15 meq/ Multivitamins 10 ml/Chromium/ Copper/Manganese/ Seleni/Zn 0.5 ml/ Insulin Human Regular 15 unit/ Total Parenteral Nutrition/Amino Acids/Dextrose/ Fat Emulsion Intravenous 1,400 ml @ 58.333 mls/ hr TPN CONT IV Last administered on 07/16/19at 20:34; Start 07/16/19 at 22:00; Stop 07/17/19 at 21:59; Status DC Info (Icu Electrolyte Protocol) 1 ea CONT PRN PRN MC PER PROTOCOL; Start 07/17/19 at 13:15 Sodium Chloride 90 meq/Potassium Chloride 15 meq/ Potassium Phosphate 18 mmol/ Magnesium Sulfate 8 meq/Calcium Gluconate 15 meq/ Multivitamins 10 ml/Chromium/ Copper/Manganese/ Seleni/Zn 0.5 ml/ Insulin Human Regular 15 unit/ Total Parenteral Nutrition/Amino Acids/Dextrose/ Fat Emulsion Intravenous 1,400 ml @ 58.333 mls/ hr TPN CONT IV Last administered on 07/17/19at 22:05; Start 07/17/19 at 22:00; Stop 07/18/19 at 21:59; Status DC Potassium Chloride 15 meq/ Bicarbonate Dialysis Soln w/ out KCl 5,007.5 ml @ 1,000 mls/ hr Q5H1M IV Last administered on 07/20/19at 18:14; Start 07/17/19 at 20:00; Stop 07/21/19 at 13:08; Status DC Potassium Chloride 15 meq/ Bicarbonate Dialysis Soln w/ out KCl 5,007.5 ml @ 1,000 mls/ hr Q5H1M IV Last administered on 07/20/19at 18:14; Start 07/17/19 at 20:00; Stop 07/21/19 at 13:08; Status DC Potassium Chloride 15 meq/ Bicarbonate Dialysis Soln w/ out KCl 5,007.5 ml @ 1,000 mls/ hr Q5H1M IV Last administered on 07/20/19at 18:14; Start 07/17/19 at 20:00; Stop 07/21/19 at 13:08; Status DC Iohexol (Omnipaque 240 Mg/ml) 30 ml 1X ONCE PO Last administered on 07/18/19at 11:30; Start 07/18/19 at 11:30; Stop 07/18/19 at 11:33; Status DC Info (CONTRAST GIVEN -- Rx MONITORING) 1 each PRN DAILY PRN MC SEE COMMENTS; Start 07/18/19 at 11:45; Stop 07/20/19 at 11:44; Status DC Sodium Chloride 90 meq/Potassium Chloride 15 meq/ Potassium Phosphate 18 mmol/ Magnesium Sulfate 8 meq/Calcium Gluconate 15 meq/ Multivitamins 10 ml/Chromium/ Copper/Manganese/ Seleni/Zn 0.5 ml/ Insulin Human Regular 15 unit/ Total Parenteral Nutrition/Amino Acids/Dextrose/ Fat Emulsion Intravenous 1,400 ml @ 58.333 mls/ hr TPN CONT IV Last administered on 07/18/19at 21:47; Start 07/18/19 at 22:00; Stop 07/19/19 at 21:59; Status DC Sodium Chloride 90 meq/Potassium Chloride 15 meq/ Potassium Phosphate 18 mmol/ Magnesium Sulfate 8 meq/Calcium Gluconate 15 meq/ Multivitamins 10 ml/Chromium/ Copper/Manganese/ Seleni/Zn 0.5 ml/ Insulin Human Regular 20 unit/ Total Parenteral Nutrition/Amino Acids/Dextrose/ Fat Emulsion Intravenous 1,400 ml @ 58.333 mls/ hr TPN CONT IV Last administered on 07/19/19at 21:36; Start 07/19/19 at 22:00; Stop 07/20/19 at 21:59; Status DC Alteplase, Recombinant (Cathflo For Central Catheter Clearance) 1 mg 1X ONCE INT CAT Last administered on 07/19/19at 20:03; Start 07/19/19 at 19:30; Stop 07/19/19 at 19:46; Status DC Alteplase, Recombinant (Cathflo For Central Catheter Clearance) 1 mg 1X ONCE INT CAT Last administered on 07/19/19at 22:05; Start 07/19/19 at 22:00; Stop 07/19/19 at 22:01; Status DC Sodium Chloride 90 meq/Potassium Chloride 15 meq/ Potassium Phosphate 18 mmol/ Magnesium Sulfate 8 meq/Calcium Gluconate 15 meq/ Multivitamins 10 ml/Chromium/ Copper/Manganese/ Seleni/Zn 0.5 ml/ Insulin Human Regular 20 unit/ Total Parenteral Nutrition/Amino Acids/Dextrose/ Fat Emulsion Intravenous 1,400 ml @ 58.333 mls/ hr TPN CONT IV Last administered on 07/20/19at 21:30; Start 07/20/19 at 22:00; Stop 07/21/19 at 21:59; Status DC Dexmedetomidine HCl 400 mcg/ Sodium Chloride 100 ml @ 0 mls/hr CONT PRN IV ANXIETY / AGITATION Last administered on 09/17/19at 12:57; Start 07/21/19 at 08:15; Stop 09/17/19 at 18:31; Status DC Sodium Chloride 500 ml @ 500 mls/hr 1X PRN PRN IV ELEVATED BP, SEE COMMENTS; Start 07/21/19 at 08:15 Atropine Sulfate (ATROPINE 0.5mg SYRINGE) 0.5 mg PRN Q5MIN PRN IV SEE COMMENTS; Start 07/21/19 at 08:15 Furosemide (Lasix) 20 mg 1X ONCE IVP Last administered on 07/21/19at 08:19; Start 07/21/19 at 08:15; Stop 07/21/19 at 08:16; Status DC Lidocaine HCl (Buffered Lidocaine 1%) 3 ml STK-MED ONCE .ROUTE ; Start 07/21/19 at 08:39; Stop 07/21/19 at 08:39; Status DC Lidocaine HCl (Buffered Lidocaine 1%) 6 ml 1X ONCE INJ Last administered on 07/21/19at 09:05; Start 07/21/19 at 09:00; Stop 07/21/19 at 09:06; Status DC Sodium Chloride 90 meq/Potassium Chloride 15 meq/ Potassium Phosphate 18 mmol/ Magnesium Sulfate 8 meq/Calcium Gluconate 15 meq/ Multivitamins 10 ml/Chromium/ Copper/Manganese/ Seleni/Zn 0.5 ml/ Insulin Human Regular 20 unit/ Total Parenteral Nutrition/Amino Acids/Dextrose/ Fat Emulsion Intravenous 1,400 ml @ 58.333 mls/ hr TPN CONT IV Last administered on 07/21/19at 22:45; Start 07/21/19 at 22:00; Stop 07/22/19 at 21:59; Status DC Sodium Chloride 1,000 ml @ 1,000 mls/hr Q1H PRN IV hypotension; Start 07/22/19 at 07:30; Stop 07/22/19 at 13:29; Status DC Albumin Human 200 ml @ 200 mls/hr 1X PRN PRN IV Hypotension Last administered on 07/22/19at 09:36; Start 07/22/19 at 07:30; Stop 07/22/19 at 13:29; Status DC Sodium Chloride (Normal Saline Flush) 10 ml 1X PRN PRN IV AP catheter pack; Start 07/22/19 at 07:30; Stop 07/22/19 at 21:29; Status DC Sodium Chloride (Normal Saline Flush) 10 ml 1X PRN PRN IV [employer] catheter pack; Start 07/22/19 at 07:30; Stop 07/23/19 at 07:29; Status DC Sodium Chloride 1,000 ml @ 400 mls/hr Q2H30M PRN IV PATENCY; Start 07/22/19 at 07:30; Stop 07/22/19 at 19:29; Status DC Info (PHARMACY MONITORING -- do not chart) 1 each PRN DAILY PRN MC SEE COMMENTS; Start 07/22/19 at 07:30; Stop 07/22/19 at 13:02; Status DC Info (PHARMACY MONITORING -- do not chart) 1 each PRN DAILY PRN MC SEE COMMENTS; Start 07/22/19 at 07:30; Stop 07/24/19 at 12:45; Status DC Sodium Chloride 90 meq/Potassium Chloride 15 meq/ Potassium Phosphate 10 mmol/ Magnesium Sulfate 8 meq/Calcium Gluconate 15 meq/ Multivitamins 10 ml/Chromium/ Copper/Manganese/ Seleni/Zn 0.5 ml/ Insulin Human Regular 25 unit/ Total Parenteral Nutrition/Amino Acids/Dextrose/ Fat Emulsion Intravenous 1,400 ml @ 58.333 mls/ hr TPN CONT IV Last administered on 07/22/19at 22:19; Start 07/22/19 at 22:00; Stop 07/23/19 at 21:59; Status DC Heparin Sodium (Porcine) (Heparin Sodium) 5,000 unit Q12HR SQ Last administered on 08/14/19at 08:59; Start 07/22/19 at 21:00; Stop 08/14/19 at 10:05; Status DC Ondansetron HCl (Zofran) 4 mg PRN Q6HRS PRN IV NAUSEA/VOMITING; Start 07/25/19 at 07:00; Stop 07/26/19 at 06:59; Status DC Fentanyl Citrate (Fentanyl 2ml Vial) 25 mcg PRN Q5MIN PRN IV MILD PAIN 1-3; Start 07/25/19 at 07:00; Stop 07/26/19 at 06:59; Status DC Fentanyl Citrate (Fentanyl 2ml Vial) 50 mcg PRN Q5MIN PRN IV MODERATE TO SEVERE PAIN; Start 07/25/19 at 07:00; Stop 07/26/19 at 06:59; Status DC Ringer's Solution 1,000 ml @ 30 mls/hr Q24H IV ; Start 07/25/19 at 07:00; Stop 07/25/19 at 18:59; Status DC Lidocaine HCl (Xylocaine-Mpf 1% 2ml Vial) 2 ml PRN 1X PRN ID PRIOR TO IV START; Start 07/25/19 at 07:00; Stop 07/26/19 at 06:59; Status DC Prochlorperazine Edisylate (Compazine) 5 mg PACU PRN PRN IV NAUSEA, MRX1; Start 07/25/19 at 07:00; Stop 07/26/19 at 06:59; Status DC Sodium Chloride 1,000 ml @ 1,000 mls/hr Q1H PRN IV hypotension; Start 07/23/19 at 09:10; Stop 07/23/19 at 15:09; Status DC Albumin Human 200 ml @ 200 mls/hr 1X PRN PRN IV Hypotension Last administered on 07/23/19at 10:10; Start 07/23/19 at 09:15; Stop 07/23/19 at 15:14; Status DC Sodium Chloride 1,000 ml @ 400 mls/hr Q2H30M PRN IV PATENCY; Start 07/23/19 at 09:10; Stop 07/23/19 at 21:09; Status DC Info (PHARMACY MONITORING -- do not chart) 1 each PRN DAILY PRN MC SEE COMMENTS; Start 07/23/19 at 09:15; Stop 07/24/19 at 12:45; Status DC Info (PHARMACY MONITORING -- do not chart) 1 each PRN DAILY PRN MC SEE COMMENTS; Start 07/23/19 at 09:15; Stop 07/24/19 at 12:45; Status DC Sodium Chloride 90 meq/Potassium Chloride 15 meq/ Potassium Phosphate 10 mmol/ Magnesium Sulfate 8 meq/Calcium Gluconate 15 meq/ Multivitamins 10 ml/Chromium/ Copper/Manganese/ Seleni/Zn 0.5 ml/ Insulin Human Regular 25 unit/ Total Parenteral Nutrition/Amino Acids/Dextrose/ Fat Emulsion Intravenous 1,400 ml @ 58.333 mls/ hr TPN CONT IV Last administered on 07/23/19at 22:10; Start 07/23/19 at 22:00; Stop 07/24/19 at 21:59; Status DC Magnesium Sulfate 50 ml @ 25 mls/hr PRN DAILY PRN IV for Mag < 1.7 on am labs Last administered on 08/08/19at 17:27; Start 07/24/19 at 09:15 Sodium Chloride 90 meq/Potassium Chloride 15 meq/ Potassium Phosphate 10 mmol/ Magnesium Sulfate 8 meq/Calcium Gluconate 15 meq/ Multivitamins 10 ml/Chromium/ Copper/Manganese/ Seleni/Zn 0.5 ml/ Insulin Human Regular 25 unit/ Total Parenteral Nutrition/Amino Acids/Dextrose/ Fat Emulsion Intravenous 1,400 ml @ 58.333 mls/ hr TPN CONT IV Last administered on 07/24/19at 21:20; Start 07/24/19 at 22:00; Stop 07/25/19 at 21:59; Status DC Sodium Chloride 1,000 ml @ 1,000 mls/hr Q1H PRN IV hypotension; Start 07/24/19 at 12:23; Stop 07/24/19 at 18:22; Status DC Albumin Human 200 ml @ 200 mls/hr 1X ONCE IV Last administered on 07/24/19at 13:34; Start 07/24/19 at 12:30; Stop 07/24/19 at 13:29; Status DC Diphenhydramine HCl (Benadryl) 25 mg 1X PRN PRN IV ITCHING; Start 07/24/19 at 12:30; Stop 07/25/19 at 12:29; Status DC Diphenhydramine HCl (Benadryl) 25 mg 1X PRN PRN IV ITCHING; Start 07/24/19 at 12:30; Stop 07/25/19 at 12:29; Status DC Info (PHARMACY MONITORING -- do not chart) 1 each PRN DAILY PRN MC SEE COMMENTS; Start 07/24/19 at 12:30; Status Cancel Bupivacaine HCl/ Epinephrine Bitart (Sensorcain-Epi 0.5%-1:[id number] Mpf) 30 ml STK-MED ONCE .ROUTE Last administered on 07/25/19at 11:44; Start 07/25/19 at 11:00; Stop 07/25/19 at 11:01; Status DC Cellulose (Surgicel Fibrillar 1x2) 1 each STK-MED ONCE .ROUTE ; Start 07/25/19 at 11:00; Stop 07/25/19 at 11:01; Status DC Sodium Chloride 90 meq/Potassium Chloride 15 meq/ Potassium Phosphate 10 mmol/ Magnesium Sulfate 12 meq/Calcium Gluconate 15 meq/ Multivitamins 10 ml/Chromium/ Copper/Manganese/ Seleni/Zn 0.5 ml/ Insulin Human Regular 25 unit/ Total Parenteral Nutrition/Amino Acids/Dextrose/ Fat Emulsion Intravenous 1,400 ml @ 58.333 mls/ hr TPN CONT IV Last administered on 07/25/19at 22:24; Start 07/25/19 at 22:00; Stop 07/26/19 at 21:59; Status DC Propofol 20 ml @ As Directed STK-MED ONCE IV ; Start 07/25/19 at 11:07; Stop 07/24 at 11:07; Status DC Cellulose (Surgicel Hemostat 4x8) 1 each STK-MED ONCE .ROUTE Last administered on 07/25/19at 11:44; Start 07/25/19 at 11:55; Stop 07/25/19 at 11:56; Status DC Sevoflurane (Ultane) 60 ml STK-MED ONCE IH ; Start 07/25/19 at 12:46; Stop 07/25/19 at 12:46; Status DC Sodium Chloride 1,000 ml @ 1,000 mls/hr Q1H PRN IV hypotension; Start 07/25/19 at 13:51; Stop 07/25/19 at 19:50; Status DC Albumin Human 200 ml @ 200 mls/hr 1X PRN PRN IV Hypotension Last administered on 07/25/19at 14:51; Start 07/25/19 at 14:00; Stop 07/25/19 at 19:59; Status DC Diphenhydramine HCl (Benadryl) 25 mg 1X PRN PRN IV ITCHING; Start 07/25/19 at 14:00; Stop 07/26/19 at 13:59; Status DC Diphenhydramine HCl (Benadryl) 25 mg 1X PRN PRN IV ITCHING; Start 07/25/19 at 14:00; Stop 07/26/19 at 13:59; Status DC Sodium Chloride 1,000 ml @ 400 mls/hr Q2H30M PRN IV PATENCY; Start 07/25/19 at 13:51; Stop 07/26/19 at 01:50; Status DC Info (PHARMACY MONITORING -- do not chart) 1 each PRN DAILY PRN MC SEE COMMENTS; Start 07/25/19 at 14:00; Stop 07/28/19 at 08:16; Status DC Heparin Sodium (Porcine) (Hep Lock Adult) 500 unit STK-MED ONCE IVP ; Start 07/26/19 at 09:29; Stop 07/26/19 at 09:30; Status DC Sodium Chloride 1,000 ml @ 1,000 mls/hr Q1H PRN IV hypotension; Start 07/26/19 at 10:43; Stop 07/26/19 at 16:42; Status DC Sodium Chloride 1,000 ml @ 400 mls/hr Q2H30M PRN IV PATENCY; Start 07/26/19 at 10:43; Stop 07/26/19 at 22:42; Status DC Info (PHARMACY MONITORING -- do not chart) 1 each PRN DAILY PRN MC SEE COMMENTS; Start 07/26/19 at 10:45; Status UNV Info (PHARMACY MONITORING -- do not chart) 1 each PRN DAILY PRN MC SEE COMMENTS; Start 07/26/19 at 10:45; Status UNV Sodium Chloride 90 meq/Potassium Chloride 15 meq/ Magnesium Sulfate 12 meq/Calcium Gluconate 15 meq/ Multivitamins 10 ml/Chromium/ Copper/Manganese/ Seleni/Zn 0.5 ml/ Insulin Human Regular 25 unit/ Total Parenteral Nutrition/Amino Acids/Dextrose/ Fat Emulsion Intravenous 1,400 ml @ 58.333 mls/ hr TPN CONT IV Last administered on 07/26/19at 22:13; Start 07/26/19 at 22:00; Stop 07/27/19 at 21:59; Status DC Sodium Chloride 1,000 ml @ 1,000 mls/hr Q1H PRN IV hypotension; Start 07/27/19 at 07:50; Stop 07/27/19 at 13:49; Status DC Albumin Human 200 ml @ 200 mls/hr 1X ONCE IV ; Start 07/27/19 at 08:00; Stop 07/27/19 at 08:53; Status DC Diphenhydramine HCl (Benadryl) 25 mg 1X PRN PRN IV ITCHING; Start 07/27/19 at 08:00; Stop 07/28/19 at 07:59; Status DC Diphenhydramine HCl (Benadryl) 25 mg 1X PRN PRN IV ITCHING; Start 07/27/19 at 08:00; Stop 07/28/19 at 07:59; Status DC Info (PHARMACY MONITORING -- do not chart) 1 each PRN DAILY PRN MC SEE COMMENTS; Start 07/27/19 at 08:00; Stop 07/28/19 at 08:16; Status DC Albumin Human 50 ml @ 50 mls/hr 1X ONCE IV ; Start 07/27/19 at 08:53; Stop 07/27/19 at 08:56; Status DC Albumin Human 200 ml @ 50 mls/hr PRN 1X PRN IV HYPOTENSION Last administered on 08/02/19at 11:54; Start 07/27/19 at 09:00; Stop 09/08/19 at 11:14; Status DC Meropenem 500 mg/ Sodium Chloride 50 ml @ 100 mls/hr Q12H IV Last administered on 08/16/19at 10:45; Start 07/27/19 at 10:00; Stop 08/16/19 at 12:37; Status DC Sodium Chloride 90 meq/Magnesium Sulfate 12 meq/ Calcium Gluconate 15 meq/ Multivitamins 10 ml/Chromium/ Copper/Manganese/ Seleni/Zn 0.5 ml/ Insulin Human Regular 25 unit/ Total Parenteral Nutrition/Amino Acids/Dextrose/ Fat Emulsion Intravenous 1,400 ml @ 58.333 mls/ hr TPN CONT IV Last administered on 07/27/19at 21:41; Start 07/27/19 at 22:00; Stop 07/28/19 at 21:59; Status DC Sodium Chloride 1,000 ml @ 1,000 mls/hr Q1H PRN IV hypotension; Start 07/28/19 at 07:58; Stop 07/28/19 at 13:57; Status DC Albumin Human 200 ml @ 200 mls/hr 1X PRN PRN IV Hypotension Last administered on 07/28/19at 09:30; Start 07/28/19 at 08:00; Stop 07/28/19 at 13:59; Status DC Sodium Chloride 1,000 ml @ 400 mls/hr Q2H30M PRN IV PATENCY; Start 07/28/19 at 07:58; Stop 07/28/19 at 19:57; Status DC Info (PHARMACY MONITORING -- do not chart) 1 each PRN DAILY PRN MC SEE PIPE TS; Start 07/28/19 at 08:00; Status Cancel Info (PHARMACY MONITORING -- do not chart) 1 each PRN DAILY PRN MC SEE COMMENTS; Start 07/28/19 at 08:15; Status UNV Sodium Chloride 90 meq/Potassium Phosphate 5 mmol/ Magnesium Sulfate 12 meq/Calcium Gluconate 15 meq/ Multivitamins 10 ml/Chromium/ Copper/Manganese/ Seleni/Zn 0.5 ml/ Insulin Human Regular 30 unit/ Total Parenteral Nutriti on/Amino Acids/Dextrose/ Fat Emulsion Intravenous 1,400 ml @ 58.333 mls/ hr TPN CONT IV Last administered on 07/28/19at 22:08; Start 07/28/19 at 22:00; Stop 07/29/19 at 21:59; Status DC Linezolid/Dextrose 300 ml @ 300 mls/hr Q12HR IV Last administered on 08/08/19at 20:40; Start 07/29/19 at 11:00; Stop 08/09/19 at 08:10; Status DC Sodium Chloride 90 meq/Potassium Phosphate 15 mmol/ Magnesium Sulfate 12 meq/Calcium Gluconate 15 meq/ Multivitamins 10 ml/Chromium/ Copper/Manganese/ Seleni/Zn 0.5 ml/ Insulin Human Regular 30 unit/ Total Parenteral Nutrition/Amino Acids/Dextrose/ Fat Emulsion Intravenous 1,400 ml @ 58.333 mls/ hr TPN CONT IV Last administered on 07/29/19at 21:49; Start 07/29/19 at 22:00; Stop 07/30/19 at 21:59; Status DC Sodium Chloride 90 meq/Potassium Phosphate 15 mmol/ Magnesium Sulfate 12 meq/Calcium Gluconate 15 meq/ Multivitamins 10 ml/Chromium/ Copper/Manganese/ Seleni/Zn 0.5 ml/ Insulin Human Regular 40 unit/ Total Parenteral Nutrition/Amino Acids/Dextrose/ Fat Emulsion Intravenous 1,400 ml @ 58.333 mls/ hr TPN CONT IV Last administered on 07/30/19at 21:21; Start 07/30/19 at 22:00; Stop 07/31/19 at 21:59; Status DC Sodium Chloride 1,000 ml @ 1,000 mls/hr Q1H PRN IV hypotension; Start 07/30/19 at 13:26; Stop 07/30/19 at 19:25; Status DC Albumin Human 200 ml @ 200 mls/hr 1X PRN PRN IV Hypotension Last administered on 07/30/19at 15:00; Start 07/30/19 at 13:30; Stop 07/30/19 at 19:29; Status DC Sodium Chloride (Normal Saline Flush) 10 ml 1X PRN PRN IV AP catheter pack; Start 07/30/19 at 13:30; Stop 07/31/19 at 13:29; Status DC Sodium Chloride (Normal Saline Flush) 10 ml 1X PRN PRN IV [employer] catheter pack; Start 07/30/19 at 13:30; Stop 07/31/19 at 13:29; Status DC Sodium Chloride 1,000 ml @ 400 mls/hr Q2H30M PRN IV PATENCY; Start 07/30/19 at 13:26; Stop 07/31/19 at 01:25; Status DC Info (PHARMACY MONITORING -- do not chart) 1 each PRN DAILY PRN MC SEE PIPE TS; Start 07/30/19 at 13:30; Stop 07/30/19 at 13:33; Status DC Info (PHARMACY MONITORING -- do not chart) 1 each PRN DAILY PRN MC SEE COMMENTS; Start 07/30/19 at 13:30; Stop 07/30/19 at 13:34; Status DC Sodium Chloride 90 meq/Potassium Phosphate 19 mmol/ Magnesium Sulfate 12 meq/Calcium Gluconate 15 meq/ Multivitamins 10 ml/Chromium/ Copper/Manganese/ Seleni/Zn 0.5 ml/ Insulin Human Regular 40 unit/ Total Parenteral Nutrition/Amino Acids/Dextrose/ Fat Emulsion Intravenous 1,400 ml @ 58.333 mls/ hr TPN CONT IV Last administered on 07/31/19at 21:54; Start 07/31/19 at 22:00; Stop 08/01/19 at 21:59; Status DC Sodium Chloride 1,000 ml @ 1,000 mls/hr Q1H PRN IV hypotension; Start 08/01/19 at 09:35; Stop 08/01/19 at 15:34; Status DC Albumin Human 200 ml @ 200 mls/hr 1X PRN PRN IV Hypotension; Start 08/01/19 at 09:45; Stop 08/01/19 at 15:44; Status DC Diphenhydramine HCl (Benadryl) 25 mg 1X PRN PRN IV ITCHING; Start 08/01/19 at 09:45; Stop 08/02/19 at 09:44; Status DC Diphenhydramine HCl (Benadryl) 25 mg 1X PRN PRN IV ITCHING; Start 08/01/19 at 09:45; Stop 08/02/19 at 09:44; Status DC Sodium Chloride 1,000 ml @ 400 mls/hr Q2H30M PRN IV PATENCY; Start 08/01/19 at 09:35; Stop 08/01/19 at 21:34; Status DC Info (PHARMACY MONITORING -- do not chart) 1 each PRN DAILY PRN MC SEE COMMENTS; Start 08/01/19 at 09:45; Status Cancel Sodium Chloride 100 meq/Potassium Phosphate 19 mmol/ Magnesium Sulfate 12 meq/Calcium Gluconate 15 meq/ Multivitamins 10 ml/Chromium/ Copper/Manganese/ Seleni/Zn 0.5 ml/ Insulin Human Regular 40 unit/ Potassium Chloride 20 meq/ Total Parenteral Nutrition/Amino Acids/Dextrose/ Fat Emulsion Intravenous 1,400 ml @ 58.333 mls/ hr TPN CONT IV Last administered on 08/01/19at 22:02; Start 08/01/19 at 22:00; Stop 08/02/19 at 21:59; Status DC Furosemide (Lasix) 40 mg 1X ONCE IVP Last administered on 08/01/19at 14:39; Start 08/01/19 at 14:30; Stop 08/01/19 at 14:31; Status DC Metronidazole 100 ml @ 100 mls/hr Q8HRS IV Last administered on 08/09/19at 06:04; Start 08/02/19 at 10:00; Stop 08/09/19 at 08:10; Status DC Sodium Chloride 1,000 ml @ 1,000 mls/hr Q1H PRN IV hypotension; Start 08/02/19 at 08:00; Stop 08/02/19 at 13:59; Status DC Albumin Human 200 ml @ 200 mls/hr 1X PRN PRN IV Hypotension; Start 08/02/19 at 08:00; Stop 08/02/19 at 13:59; Status DC Sodium Chloride 1,000 ml @ 400 mls/hr Q2H30M PRN IV PATENCY; Start 08/02/19 at 08:00; Stop 08/02/19 at 19:59; Status DC Info (PHARMACY MONITORING -- do not chart) 1 each PRN DAILY PRN MC SEE COMMENTS; Start 08/02/19 at 11:30; Status UNV Info (PHARMACY MONITORING -- do not chart) 1 each PRN DAILY PRN MC SEE COMMENTS; Start 08/02/19 at 11:30; Stop 08/04/19 at 12:13; Status DC Sodium Chloride 100 meq/Potassium Phosphate 19 mmol/ Magnesium Sulfate 12 meq/Calcium Gluconate 15 meq/ Multivitamins 10 ml/Chromium/ Copper/Manganese/ Seleni/Zn 0.5 ml/ Insulin Human Regular 40 unit/ Potassium Chloride 20 meq/ Total Parenteral Nutrition/Amino Acids/Dextrose/ Fat Emulsion Intravenous 1,400 ml @ 58.333 mls/ hr TPN CONT IV Last administered on 08/02/19at 21:52; Start 08/02/19 at 22:00; Stop 08/03/19 at 21:59; Status DC Sodium Chloride (Normal Saline Flush) 10 ml QSHIFT PRN IV AFTER MEDS AND BLOOD DRAWS; Start 08/02/19 at 15:00; Stop 08/30/19 at 11:27; Status DC Sodium Chloride (Normal Saline Flush) 10 ml PRN Q5MIN PRN IV AFTER MEDS AND BLOOD DRAWS; Start 08/02/19 at 15:00 Sodium Chloride (Normal Saline Flush) 20 ml PRN Q5MIN PRN IV AFTER MEDS AND BLOOD DRAWS; Start 08/02/19 at 15:00 Sodium Chloride 100 meq/Potassium Phosphate 19 mmol/ Magnesium Sulfate 12 meq/Calcium Gluconate 15 meq/ Multivitamins 10 ml/Chromium/ Copper/Manganese/ Seleni/Zn 0.5 ml/ Insulin Human Regular 40 unit/ Potassium Chloride 20 meq/ Total Parenteral Nutrition/Amino Acids/Dextrose/ Fat Emulsion Intravenous 1,400 ml @ 58.333 mls/ hr TPN CONT IV Last administered on 08/03/19at 21:20; Start 08/03/19 at 22:00; Stop 08/04/19 at 21:59; Status DC Lidocaine HCl (Buffered Lidocaine 1%) 3 ml STK-MED ONCE .ROUTE ; Start 08/03/19 at 13:16; Stop 08/03/19 at 13:16; Status DC Lidocaine HCl (Buffered Lidocaine 1%) 6 ml 1X ONCE INJ Last administered on 08/03/19at 13:45; Start 08/03/19 at 13:30; Stop 08/03/19 at 13:31; Status DC Albumin Human 100 ml @ 100 mls/hr 1X ONCE IV Last administered on 08/03/19at 15:41; Start 08/03/19 at 15:00; Stop 08/03/19 at 15:59; Status DC Albumin Human 50 ml @ 50 mls/hr 1X ONCE IV Last administered on 08/03/19at 15:00; Start 08/03/19 at 15:00; Stop 08/03/19 at 15:59; Status DC Info (PHARMACY MONITORING -- do not chart) 1 each PRN DAILY PRN MC SEE COMME NTS; Start 08/04/19 at 11:30; Status Cancel Info (PHARMACY MONITORING -- do not chart) 1 each PRN DAILY PRN MC SEE COMMENTS; Start 08/04/19 at 11:30; Status UNV Sodium Chloride 100 meq/Potassium Phosphate 10 mmol/ Magnesium Sulfate 12 meq/Calcium Gluconate 15 meq/ Multivitamins 10 ml/Chromium/ Copper/Manganese/ Seleni/Zn 0.5 ml/ Insulin Human Regular 35 unit/ Potassium Chloride 20 meq/ Total Parenteral Nutrition/Amino Acids/Dextrose/ Fat Emulsion Intravenous 1,400 ml @ 58.333 mls/ hr TPN CONT IV Last administered on 08/04/19at 22:10; Start 08/04/19 at 22:00; Stop 08/05/19 at 21:59; Status DC Sodium Chloride 100 meq/Potassium Phosphate 5 mmol/ Magnesium Sulfate 12 meq/Calcium Gluconate 15 meq/ Multivitamins 10 ml/Chromium/ Copper/Manganese/ Seleni/Zn 0.5 ml/ Insulin Human Regular 35 unit/ Potassium Chloride 20 meq/ Total Parenteral Nutrition/Amino Acids/Dextrose/ Fat Emulsion Intravenous 1,400 ml @ 58.333 mls/ hr TPN CONT IV Last administered on 08/05/19at 22:59; Start 08/05/19 at 22:00; Stop 08/06/19 at 21:59; Status DC Sodium Chloride 1,000 ml @ 1,000 mls/hr Q1H PRN IV hypotension; Start 08/06/19 at 08:27; Stop 08/06/19 at 14:26; Status DC Albumin Human 200 ml @ 200 mls/hr 1X PRN PRN IV Hypotension Last administered on 08/06/19at 09:18; Start 08/06/19 at 08:30; Stop 08/06/19 at 14:29; Status DC Sodium Chloride 1,000 ml @ 400 mls/hr Q2H30M PRN IV PATENCY; Start 08/06/19 at 08:27; Stop 08/06/19 at 20:26; Status DC Info (PHARMACY MONITORING -- do not chart) 1 each PRN DAILY PRN MC SEE COMMENTS; Start 08/06/19 at 08:30; Status Cancel Info (PHARMACY MONITORING -- do not chart) 1 each PRN DAILY PRN MC SEE COMMENTS; Start 08/06/19 at 08:30; Stop 08/14/19 at 13:10; Status DC Sodium Chloride 100 meq/Potassium Chloride 40 meq/ Magnesium Sulfate 15 meq/ Calcium Gluconate 15 meq/ Multivitamins 10 ml/Chromium/ Copper/Manganese/ Seleni/Zn 0.5 ml/ Insulin Human Regular 35 unit/ Total Parenteral Nutrition/Amino Acids/Dextrose/ Fat Emulsion Intravenous 1,400 ml @ 58.333 mls/ hr TPN CONT IV Last administered on 08/06/19at 22:00; Start 08/06/19 at 22:00; Stop 08/07/19 at 21:59; Status DC Potassium Chloride/Water 100 ml @ 100 mls/hr 1X ONCE IV Last administered on 08/06/19at 17:28; Start 08/06/19 at 14:45; Stop 08/06/19 at 15:44; Status DC Sodium Chloride 100 meq/Potassium Chloride 40 meq/ Magnesium Sulfate 15 meq/Calcium Gluconate 15 meq/ Multivitamins 10 ml/Chromium/ Copper/Manganese/ Seleni/Zn 0.5 ml/ Insulin Human Regular 35 unit/ Total Parenteral Nutrition/Amino Acids/Dextrose/ Fat Emulsion Intravenous 1,400 ml @ 58.333 mls/ hr TPN CONT IV Last administered on 08/07/19at 22:46; Start 08/07/19 at 22:00; Stop 08/08/19 at 21:59; Status DC Sodium Chloride 100 meq/Potassium Chloride 40 meq/ Magnesium Sulfate 20 meq/Calcium Gluconate 15 meq/ Multivitamins 10 ml/Chromium/ Copper/Manganese/ Seleni/Zn 0.5 ml/ Insulin Human Regular 35 unit/ Total Parenteral Nutrition/Amino Acids/Dextrose/ Fat Emulsion Intravenous 1,400 ml @ 58.333 mls/ hr TPN CONT IV Last administered on 08/08/19at 22:31; Start 08/08/19 at 22:00; Stop 08/09/19 at 21:59; Status DC Fentanyl Citrate (Fentanyl 2ml Vial) 50 mcg PRN Q2HR PRN IVP PAIN Last administered on 08/15/19at 13:32; Start 08/08/19 at 21:00; Stop 08/16/19 at 12:53; Status DC Fentanyl Citrate (Fentanyl 2ml Vial) 25 mcg PRN Q2HR PRN IVP PAIN; Start 08/08/19 at 21:00; Stop 08/16/19 at 12:54; Status DC Enoxaparin Sodium (Lovenox 100mg Syringe) 100 mg Q12HR SQ ; Start 08/09/19 at 21:00; Status UNV Amino Acids/ Glycerin/ Electrolytes 1,000 ml @ 75 mls/hr [id number] IV ; Start 08/08/19 at 21:15; Status UNV Sodium Chloride 1,000 ml @ 1,000 mls/hr Q1H PRN IV hypotension; Start 08/09/19 at 07:56; Stop 08/09/19 at 13:55; Status DC Albumin Human 200 ml @ 200 mls/hr 1X PRN PRN IV Hypotension Last administered on 08/09/19at 08:40; Start 08/09/19 at 08:00; Stop 08/09/19 at 13:59; Status DC Sodium Chloride 1,000 ml @ 400 mls/hr Q2H30M PRN IV PATENCY; Start 08/09/19 at 07:56; Stop 08/09/19 at 19:55; Status DC Info (PHARMACY MONITORING -- do not chart) 1 each PRN DAILY PRN MC SEE COMMENTS; Start 08/09/19 at 08:00; Status UNV Info (PHARMACY MONITORING -- do not chart) 1 each PRN DAILY PRN MC SEE COMMENTS; Start 08/09/19 at 08:00; Status UNV Daptomycin 430 mg/ Sodium Chloride 50 ml @ 100 mls/hr Q24H IV Last administered on 08/09/19at 12:35; Start 08/09/19 at 09:00; Stop 08/09/19 at 12:49; Status DC Sodium Chloride 100 meq/Potassium Chloride 40 meq/ Magnesium Sulfate 20 meq/Calcium Gluconate 15 meq/ Multivitamins 10 ml/Chromium/ Copper/Manganese/ Seleni/Zn 0.5 ml/ Insulin Human Regular 35 unit/ Total Parenteral Nutrition/Amino Acids/Dextrose/ Fat Emulsion Intravenous 1,400 ml @ 58.333 mls/ hr TPN CONT IV Last administered on 08/09/19at 21:26; Start 08/09/19 at 22:00; Stop 08/10/19 at 21:59; Status DC Daptomycin 430 mg/ Sodium Chloride 50 ml @ 100 mls/hr Q48H IV ; Start 08/11/19 at 09:00; Stop 08/10/19 at 11:55; Status DC Sodium Chloride 100 meq/Potassium Chloride 40 meq/ Magnesium Sulfate 20 meq/Calcium Gluconate 15 meq/ Multivitamins 10 ml/Chromium/ Copper/Manganese/ Seleni/Zn 0.5 ml/ Insulin Human Regular 35 unit/ Total Parenteral Nutrition/Amino Acids/Dextrose/ Fat Emulsion Intravenous 1,400 ml @ 58.333 mls/ hr TPN CONT IV Last administered on 08/10/19at 22:27; Start 08/10/19 at 22:00; Stop 08/11/19 at 21:59; Status DC Daptomycin 430 mg/ Sodium Chloride 50 ml @ 100 mls/hr Q24H IV Last administered on 08/12/19at 15:07; Start 08/10/19 at 13:00; Stop 08/13/19 at 13:15; Status DC Sodium Chloride 100 meq/Potassium Chloride 40 meq/ Magnesium Sulfate 20 meq/Calcium Gluconate 10 meq/ Multivitamins 10 ml/Chromium/ Copper/Manganese/ Seleni/Zn 0.5 ml/ Insulin Human Regular 35 unit/ Total Parenteral Nutrition/Amino Acids/Dextrose/ Fat Emulsion Intravenous 1,400 ml @ 58.333 mls/ hr TPN CONT IV Last administered on 08/12/19at 00:06; Start 08/11/19 at 22:00; Stop 08/12/19 at 21:59; Status DC Alteplase, Recombinant (Cathflo For Central Catheter Clearance) 1 mg 1X ONCE I NT CAT Last administered on 08/12/19at 11:44; Start 08/12/19 at 10:45; Stop 08/12/19 at 10:46; Status DC Ondansetron HCl (Zofran) 4 mg PRN Q6HRS PRN IV NAUSEA/VOMITING; Start 08/15/19 at 07:00; Stop 08/16/19 at 06:59; Status DC Fentanyl Citrate (Fentanyl 2ml Vial) 25 mcg PRN Q5MIN PRN IV MILD PAIN 1-3; Start 08/15/19 at 07:00; Stop 08/16/19 at 06:59; Status DC Fentanyl Citrate (Fentanyl 2ml Vial) 50 mcg PRN Q5MIN PRN IV MODERATE TO SEVERE PAIN Last administered on 08/15/19at 10:17; Start 08/15/19 at 07:00; Stop 08/16/19 at 06:59; Status DC Ringer's Solution 1,000 ml @ 30 mls/hr Q24H IV ; Start 08/15/19 at 07:00; Stop 08/15/19 at 18:59; Status DC Lidocaine HCl (Xylocaine-Mpf 1% 2ml Vial) 2 ml PRN 1X PRN ID PRIOR TO IV START; Start 08/15/19 at 07:00; Stop 08/16/19 at 06:59; Status DC Prochlorperazine Edisylate (Compazine) 5 mg PACU PRN PRN IV NAUSEA, MRX1; Start 08/15/19 at 07:00; Stop 08/16/19 at 06:59; Status DC Sodium Acetate 50 meq/Potassium Acetate 55 meq/ Magnesium Sulfate 20 meq/Calcium Gluconate 10 meq/ Multivitamins 10 ml/Chromium/ Copper/Manganese/ Seleni/Zn 0.5 ml/ Insulin Human Regular 35 unit/ Total Parenteral Nutrition/Amino Acids/Dextrose/ Fat Emulsion Intravenous 1,400 ml @ 58.333 mls/ hr TPN CONT IV ; Start 08/12/19 at 22:00; Stop 08/12/19 at 14:15; Status DC Sodium Acetate 50 meq/Potassium Acetate 55 meq/ Magnesium Sulfate 20 meq/Calcium Gluconate 10 meq/ Multivitamins 10 ml/Chromium/ Copper/Manganese/ Seleni/Zn 0.5 ml/ Insulin Human Regular 35 unit/ Total Parenteral Nutrition/Amino Acids/Dextrose/ Fat Emulsion Intravenous 1,800 ml @ 75 mls/hr TPN CONT IV Last administered on 08/12/19at 22:38; Start 08/12/19 at 22:00; Stop 08/13/19 at 21:59; Status DC Sodium Chloride 1,000 ml @ 1,000 mls/hr Q1H PRN IV hypotension; Start 08/12/19 at 15:31; Stop 08/12/19 at 21:30; Status DC Diphenhydramine HCl (Benadryl) 25 mg 1X PRN PRN IV ITCHING; Start 08/12/19 at 15:45; Stop 08/13/19 at 15:44; Status DC Diphenhydramine HCl (Benadryl) 25 mg 1X PRN PRN IV ITCHING; Start 08/12/19 at 15:45; Stop 08/13/19 at 15:44; Status DC Sodium Chloride 1,000 ml @ 400 mls/hr Q2H30M PRN IV PATENCY; Start 08/12/19 at 15:31; Stop 08/13/19 at 03:30; Status DC Info (PHARMACY MONITORING -- do not chart) 1 each PRN DAILY PRN MC SEE COMMENTS; Start 08/12/19 at 15:45; Stop 09/13/19 at 14:14; Status DC Sodium Acetate 50 meq/Potassium Acetate 55 meq/ Magnesium Sulfate 20 meq/Calcium Gluconate 10 meq/ Multivitamins 10 ml/Chromium/ Copper/Manganese/ Seleni/Zn 0.5 ml/ Insulin Human Regular 35 unit/ Total Parenteral Nutrition/Amino Acids/Dextrose/ Fat Emulsion Intravenous 1,800 ml @ 75 mls/hr TPN CONT IV Last administered on 08/13/19at 22:03; Start 08/13/19 at 22:00; Stop 08/14/19 at 21:59; Status DC Daptomycin 430 mg/ Sodium Chloride 50 ml @ 100 mls/hr Q24H IV Last administered on 08/18/19at 13:00; Start 08/13/19 at 13:00; Stop 08/18/19 at 20:58; Status DC Heparin Sodium (Porcine) 1000 unit/Sodium Chloride 1,001 ml @ 1,001 mls/hr 1X ONCE IRR ; Start 08/15/19 at 06:00; Stop 08/15/19 at 06:59; Status DC Potassium Acetate 55 meq/Magnesium Sulfate 20 meq/ Calcium Gluconate 10 meq/ Multivitamins 10 ml/Chromium/ Copper/Manganese/ Seleni/Zn 0.5 ml/ Insulin Human Regular 35 unit/ Total Parenteral Nutrition/Amino Acids/Dextrose/ Fat Emulsion Intravenous 1,920 ml @ 80 mls/hr TPN CONT IV Last administered on 08/14/19at 22:10; Start 08/14/19 at 22:00; Stop 08/15/19 at 21:59; Status DC Dexamethasone Sodium Phosphate (Decadron) 4 mg STK-MED ONCE .ROUTE ; Start 08/15/19 at 10:56; Stop 08/15/19 at 10:57; Status DC Ondansetron HCl (Zofran) 4 mg STK-MED ONCE .ROUTE ; Start 08/15/19 at 10:56; Stop 08/15/19 at 10:57; Status DC Rocuronium [place] (Zemuron) 50 mg STK-MED ONCE .ROUTE ; Start 08/15/19 at 10:56; Stop 08/15/19 at 10:57; Status DC Fentanyl Citrate (Fentanyl 2ml Vial) 100 mcg STK-MED ONCE .ROUTE ; Start 08/15/19 at 10:56; Stop 08/15/19 at 10:57; Status DC Bupivacaine HCl/ Epinephrine Bitart (Sensorcain-Epi 0.5%-1:[id number] Mpf) 30 ml STK-MED ONCE .ROUTE Last administered on 08/15/19at 12:01; Start 08/15/19 at 10:58; Stop 08/15/19 at 10:58; Status DC Cellulose (Surgicel Hemostat 2x14) 1 each STK-MED ONCE .ROUTE ; Start 08/15/19 at 10:58; Stop 08/15/19 at 10:59; Status DC Iohexol (Omnipaque 300 Mg/ml) 50 ml STK-MED ONCE .ROUTE ; Start 08/15/19 at 10:58; Stop 08/15/19 at 10:59; Status DC Cellulose (Surgicel Hemostat 4x8) 1 each STK-MED ONCE .ROUTE ; Start 08/15/19 at 10:58; Stop 08/15/19 at 10:59; Status DC Bisacodyl (Dulcolax Supp) 10 mg STK-MED ONCE .ROUTE ; Start 08/15/19 at 10:59; Stop 08/15/19 at 10:59; Status DC Heparin Sodium (Porcine) 1000 unit/Sodium Chloride 1,001 ml @ 1,001 mls/hr 1X ONCE IRR ; Start 08/15/19 at 12:00; Stop 08/15/19 at 12:59; Status DC Propofol 20 ml @ As Directed STK-MED ONCE IV ; Start 08/15/19 at 11:05; Stop 08/15/19 at 11:05; Status DC Sevoflurane (Ultane) 90 ml STK-MED ONCE IH ; Start 08/15/19 at 11:05; Stop 08/15/19 at 11:05; Status DC Sevoflurane (Ultane) 60 ml STK-MED ONCE IH ; Start 08/15/19 at 12:26; Stop 08/15/19 at 12:27; Status DC Propofol 20 ml @ As Directed STK-MED ONCE IV ; Start 08/15/19 at 12:26; Stop 08/15/19 at 12:27; Status DC Phenylephrine HCl (PHENYLEPHRINE in 0.9% NACL PF) 1 mg STK-MED ONCE IV ; Start 08/15/19 at 12:34; Stop 08/15/19 at 12:34; Status DC Heparin Sodium (Porcine) (Heparin Sodium) 5,000 unit Q12HR SQ Last administered on 08/24/19at 20:57; Start 08/15/19 at 21:00; Stop 08/25/19 at 09:59; Status DC Sodium Chloride (Normal Saline Flush) 3 ml QSHIFT PRN IV AFTER MEDS AND BLOOD DRAWS; Start 08/15/19 at 13:45 Naloxone HCl (Narcan) 0.4 mg PRN Q2MIN PRN IV SEE INSTRUCTIONS Last administered on 09/24/19at 15:15; Start 08/15/19 at 13:45 Sodium Chloride 1,000 ml @ 25 mls/hr Q24H IV Last administered on 09/13/19at 13:37; Start 08/15/19 at 13:37; Stop 09/16/19 at 13:09; Status DC Naloxone HCl (Narcan) 0.4 mg PRN Q2MIN PRN IV SEE INSTRUCTIONS; Start 08/15/19 at 14:30; Status UNV Sodium Chloride 1,000 ml @ 25 mls/hr Q24H IV ; Start 08/15/19 at 14:30; Status UNV Hydromorphone HCl 30 ml @ 0 mls/hr CONT PRN PRN IV PER PROTOCOL Last administered on 08/20/19at 16:08; Start 08/15/19 at 14:30; Stop 08/22/19 at 08:55; Status DC Potassium Acetate 55 meq/Magnesium Sulfate 20 meq/ Calcium Gluconate 10 meq/ Multivitamins 10 ml/Chromium/ Copper/Manganese/ Seleni/Zn 0.5 ml/ Insulin Human Regular 35 unit/ Total Parenteral Nutrition/Amino Acids/Dextrose/ Fat Emulsion Intravenous 1,920 ml @ 80 mls/hr TPN CONT IV Last administered on 08/15/19at 22:01; Start 08/15/19 at 22:00; Stop 08/16/19 at 21:59; Status DC Bumetanide (Bumex) 2 mg [id number] IV Last administered on 08/19/19at 13:50; Start 08/16/19 at 14:00; Stop 08/20/19 at 14:10; Status DC Meropenem 1 gm/ Sodium Chloride 100 ml @ 200 mls/hr Q8HRS IV Last administered on 09/09/19at 05:53; Start 08/16/19 at 14:00; Stop 09/09/19 at 09:31; Status DC Potassium Acetate 55 meq/Magnesium Sulfate 20 meq/ Calcium Gluconate 10 meq/ Multivitamins 10 ml/Chromium/ Copper/Manganese/ Seleni/Zn 0.5 ml/ Insulin Human Regular 35 unit/ Total Parenteral Nutrition/Amino Acids/Dextrose/ Fat Emulsion Intravenous 1,920 ml @ 80 mls/hr TPN CONT IV Last administered on 08/16/19at 22:02; Start 08/16/19 at 22:00; Stop 08/17/19 at 21:59; Status DC Hydromorphone HCl (Dilaudid Standard [employer]ER) 12 mg STK-MED ONCE IV ; Start 08/15/19 at 14:35; Stop 08/16/19 at 13:53; Status DC Artificial Tears (Artificial Tears) 1 drop PRN Q15MIN PRN OU DRY EYE Last administered on 09/16/19at 10:08; Start 08/17/19 at 05:30 Hydromorphone HCl (Dilaudid Standard [employer]ER[employer]Y TE[employer]ER) 12 mg STK-MED ONCE IV ; Start 08/16/19 at 12:05; Stop 08/17/19 at 09:15; Status DC Potassium Acetate 65 meq/Magnesium Sulfate 20 meq/ Calcium Gluconate 10 meq/ Multivitamins 10 ml/Chromium/ Copper/Manganese/ Seleni/Zn 0.5 ml/ Insulin Human Regular 30 unit/ Total Parenteral Nutrition/Amino Acids/Dextrose/ Fat Emulsion Intravenous 1,920 ml @ 80 mls/hr TPN CONT IV Last administered on 08/17/19at 22:22; Start 08/17/19 at 22:00; Stop 08/18/19 at 21:59; Status DC Cyclobenzaprine HCl (Flexeril) 10 mg PRN Q6HRS PRN PO MUSCLE SPASMS; Start 08/18/19 at 10:45 Potassium Acetate 55 meq/Magnesium Sulfate 20 meq/ Calcium Gluconate 10 meq/ M ultivitamins 10 ml/Chromium/ Copper/Manganese/ Seleni/Zn 0.5 ml/ Insulin Human Regular 30 unit/ Total Parenteral Nutrition/Amino Acids/Dextrose/ Fat Emulsion Intravenous 1,920 ml @ 80 mls/hr TPN CONT IV Last administered on 08/19/19at 01:00; Start 08/18/19 at 22:00; Stop 08/19/19 at 21:59; Status DC Magnesium Sulfate 50 ml @ 25 mls/hr 1X ONCE IV Last administered on 08/18/19at 17:18; Start 08/18/19 at 12:45; Stop 08/18/19 at 14:44; Status DC Potassium Chloride/Water 100 ml @ 100 mls/hr 1X ONCE IV Last administered on 08/19/19at 11:27; Start 08/19/19 at 12:00; Stop 08/19/19 at 12:59; Status DC Hydromorphone HCl (Dilaudid Standard [employer]ER[employer]Y TE[employer]ER) 12 mg STK-MED ONCE IV ; Start 08/17/19 at 10:50; Stop 08/19/19 at 11:02; Status DC Hydromorphone HCl (Dilaudid Standard [employer]UCATIONAL [employer]ER[employer]Y TE[employer]ER) 12 mg STK-MED ONCE IV ; Start 08/18/19 at 13:47; Stop 08/19/19 at 11:03; Status DC Potassium Acetate 30 meq/Magnesium Sulfate 20 meq/ Calcium Gluconate 10 meq/ Multivitamins 10 ml/Chromium/ Copper/Manganese/ Seleni/Zn 0.5 ml/ Insulin Human Regular 30 unit/ Potassium Chloride 30 meq/ Total Parenteral Nutrition/Amino Acids/Dextrose/ Fat Emulsion Intravenous 1,920 ml @ 80 mls/hr TPN CONT IV Last administered on 08/19/19at 22:34; Start 08/19/19 at 22:00; Stop 08/20/19 at 21:59; Status DC Potassium Chloride/Water 100 ml @ 100 mls/hr Q1H IV Last administered on 08/20/19at 13:05; Start 08/20/19 at 07:00; Stop 08/20/19 at 10:59; Status DC Magnesium Sulfate 50 ml @ 25 mls/hr 1X ONCE IV Last administered on 08/20/19at 10:34; Start 08/20/19 at 10:30; Stop 08/20/19 at 12:29; Status DC Potassium Chloride 75 meq/ Magnesium Sulfate 20 meq/Calcium Gluconate 10 meq/ Multivitamins 10 ml/Chromium/ Copper/Manganese/ Seleni/Zn 0.5 ml/ Insulin Human Regular 30 unit/ Total Parenteral Nutrition/Amino Acids/Dextrose/ Fat Emulsion Intravenous 1,920 ml @ 80 mls/hr TPN CONT IV Last administered on 08/20/19at 21:51; Start 08/20/19 at 22:00; Stop 08/21/19 at 22:00; Status DC Potassium Chloride 75 meq/ Magnesium Sulfate 20 meq/Calcium Gluconate 10 meq/ Multivitamins 10 ml/Chromium/ Copper/Manganese/ Seleni/Zn 0.5 ml/ Insulin Human Regular 25 unit/ Total Parenteral Nutrition/Amino Acids/Dextrose/ Fat Emulsion Intravenous 1,920 ml @ 80 mls/hr TPN CONT IV Last administered on 08/21/19at 22:04; Start 08/21/19 at 22:00; Stop 08/22/19 at 21:59; Status DC Hydromorphone HCl (Dilaudid) 0.4 mg PRN Q4HRS PRN IVP PAIN Last administered on 08/22/19at 10:57; Start 08/22/19 at 09:00; Stop 08/22/19 at 18:59; Status DC Micafungin Sodium 100 mg/Dextrose 100 ml @ 100 mls/hr Q24H IV Last administered on 09/13/19at 12:17; Start 08/22/19 at 11:00; Stop 09/14/19 at 09:59; Status DC Daptomycin 485 mg/ Sodium Chloride 50 ml @ 100 mls/hr Q24H IV Last administered on 08/29/19at 13:10; Start 08/22/19 at 11:00; Stop 08/30/19 at 07:44; Status DC Potassium Chloride 75 meq/ Magnesium Sulfate 15 meq/Calcium Gluconate 8 meq/ Multivitamins 10 ml/Chromium/ Copper/Manganese/ Seleni/Zn 0.5 ml/ Insulin Human Regular 25 unit/ Total Parenteral Nutrition/Amino Acids/Dextrose/ Fat Emulsion Intravenous 1,920 ml @ 80 mls/hr TPN CONT IV Last administered on 08/22/19at 23:08; Start 08/22/19 at 22:00; Stop 08/23/19 at 21:59; Status DC Haloperidol Lactate (Haldol Inj) 3 mg 1X ONCE IVP Last administered on 08/22/19at 14:37; Start 08/22/19 at 14:30; Stop 08/22/19 at 14:31; Status DC Hydromorphone HCl (Dilaudid) 1 mg PRN Q4HRS PRN IVP PAIN Last administered on 09/05/19at 06:25; Start 08/22/19 at 19:00; Stop 09/05/19 at 17:10; Status DC Potassium Chloride 75 meq/ Magnesium Sulfate 15 meq/Calcium Gluconate 8 meq/ Multivitamins 10 ml/Chromium/ Copper/Manganese/ Seleni/Zn 0.5 ml/ Insulin Human Regular 20 unit/ Total Parenteral Nutrition/Amino Acids/Dextrose/ Fat Emulsion Intravenous 1,920 ml @ 80 mls/hr TPN CONT IV Last administered on 08/23/19at 22:10; Start 08/23/19 at 22:00; Stop 08/24/19 at 21:59; Status DC Lidocaine HCl (Buffered Lidocaine 1%) 3 ml STK-MED ONCE .ROUTE ; Start 08/24/19 at 11:31; Stop 08/24/19 at 11:31; Status DC Lidocaine HCl (Buffered Lidocaine 1%) 3 ml STK-MED ONCE .ROUTE ; Start 08/24/19 at 12:28; Stop 08/24/19 at 12:29; Status DC Lidocaine HCl (Buffered Lidocaine 1%) 6 ml 1X ONCE INJ Last administered on 08/24/19at 12:53; Start 08/24/19 at 12:45; Stop 08/24/19 at 12:46; Status DC Potassium Chloride 75 meq/ Magnesium Sulfate 15 meq/Calcium Gluconate 8 meq/ Multivitamins 10 ml/Chromium/ Copper/Manganese/ Seleni/Zn 0.5 ml/ Insulin Human Regular 20 unit/ Total Parenteral Nutrition/Amino Acids/Dextrose/ Fat Emulsion Intravenous 1,920 ml @ 80 mls/hr TPN CONT IV Last administered on 08/24/19at 22:00; Start 08/24/19 at 22:00; Stop 08/25/19 at 21:59; Status DC Potassium Chloride 75 meq/ Magnesium Sulfate 15 meq/Calcium Gluconate 8 meq/ Multivitamins 10 ml/Chromium/ Copper/Manganese/ Seleni/Zn 0.5 ml/ Insulin Human Regular 15 unit/ Total Parenteral Nutrition/Amino Acids/Dextrose/ Fat Emulsion Intravenous 1,920 ml @ 80 mls/hr TPN CONT IV Last administered on 08/25/19at 22:28; Start 08/25/19 at 22:00; Stop 08/26/19 at 21:59; Status DC Vecuronium [place] (Norcuron Bolus) 6 mg PRN Q6HRS PRN IV VENT ASYNCHRONY; Start 08/25/19 at 19:15; Stop 08/25/19 at 19:35; Status DC Bumetanide (Bumex) 2 mg 1X ONCE IV Last administered on 08/25/19at 22:09; Start 08/25/19 at 19:45; Stop 08/25/19 at 19:46; Status DC Lidocaine HCl (Buffered Lidocaine 1%) 3 ml STK-MED ONCE .ROUTE ; Start 08/26/19 at 07:59; Stop 08/26/19 at 07:59; Status DC Midazolam HCl (Versed) 5 mg STK-MED ONCE .ROUTE ; Start 08/26/19 at 08:36; Stop 08/26/19 at 08:36; Status DC Fentanyl Citrate (Fentanyl 5ml Vial) 250 mcg STK-MED ONCE .ROUTE ; Start 08/26/19 at 08:36; Stop 08/26/19 at 08:37; Status DC Lidocaine HCl (Buffered Lidocaine 1%) 3 ml 1X ONCE IJ Last administered on 08/26/19at 09:30; Start 08/26/19 at 09:15; Stop 08/26/19 at 09:16; Status DC Midazolam HCl (Versed) 5 mg 1X ONCE IV Last administered on 08/26/19at 09:30; Start 08/26/19 at 09:15; Stop 08/26/19 at 09:16; Status DC Fentanyl Citrate (Fentanyl 5ml Vial) 250 mcg 1X ONCE IV Last administered on 08/26/19at 09:30; Start 08/26/19 at 09:15; Stop 08/26/19 at 09:16; Status DC Bumetanide (Bumex) 2 mg DAILY IV Last administered on 09/05/19at 08:07; Start 08/26/19 at 10:00; Stop 09/05/19 at 17:15; Status DC Potassium Chloride 75 meq/ Magnesium Sulfate 15 meq/ Multivitamins 10 ml/C hromium/ Copper/Manganese/ Seleni/Zn 0.5 ml/ Insulin Human Regular 15 unit/ Total Parenteral Nutrition/Amino Acids/Dextrose/ Fat Emulsion Intravenous 1,920 ml @ 80 mls/hr TPN CONT IV Last administered on 08/26/19at 21:59; Start 08/26/19 at 22:00; Stop 08/27/19 at 21:59; Status DC Metoclopramide HCl (Reglan Vial) 10 mg PRN Q3HRS PRN IVP NAUSEA/VOMITING-3rd choice Last administered on 09/01/19at 04:25; Start 08/27/19 at 16:45 Potassium Chloride 75 meq/ Magnesium Sulfate 15 meq/ Multivitamins 10 ml/Chromium/ Copper/Manganese/ Seleni/Zn 0.5 ml/ Insulin Human Regular 15 unit/ Total Parenteral Nutrition/Amino Acids/Dextrose/ Fat Emulsion Intravenous 1,920 ml @ 80 mls/hr TPN CONT IV Last administered on 08/27/19at 22:41; Start 08/27/19 at 22:00; Stop 08/28/19 at 21:59; Status DC Magnesium Sulfate 50 ml @ 25 mls/hr 1X ONCE IV Last administered on 08/28/19at 10:44; Start 08/28/19 at 09:00; Stop 08/28/19 at 10:59; Status DC Potassium Chloride/Water 100 ml @ 100 mls/hr 1X ONCE IV Last administered on 08/28/19at 09:37; Start 08/28/19 at 09:00; Stop 08/28/19 at 09:59; Status DC Duloxetine HCl (Cymbalta) 30 mg DAILY PO Last administered on 08/29/19at 09:48; Start 08/28/19 at 14:00; Stop 08/31/19 at 10:25; Status DC Potassium Chloride 80 meq/ Magnesium Sulfate 20 meq/ Multivitamins 10 ml/Chromium/ Copper/Manganese/ Seleni/Zn 0.5 ml/ Insulin Human Regular 15 unit/ Total Parenteral Nutrition/Amino Acids/Dextrose/ Fat Emulsion Intravenous 1,920 ml @ 80 mls/hr TPN CONT IV Last administered on 08/28/19at 21:42; Start 08/27 at 22:00; Stop 08/29/19 at 21:59; Status DC Potassium Chloride 80 meq/ Magnesium Sulfate 20 meq/ Multivitamins 10 ml/Chromi um/ Copper/Manganese/ Seleni/Zn 0.5 ml/ Insulin Human Regular 15 unit/ Total Parenteral Nutrition/Amino Acids/Dextrose/ Fat Emulsion Intravenous 1,920 ml @ 80 mls/hr TPN CONT IV Last administered on 08/29/19at 22:20; Start 08/29/19 at 22:00; Stop 08/30/19 at 21:59; Status DC Lidocaine HCl (Buffered Lidocaine 1%) 3 ml STK-MED ONCE .ROUTE ; Start 08/30/19 at 09:54; Stop 08/30/19 at 09:55; Status DC Hydromorphone HCl (Dilaudid Standard [employer]UCATIONAL [employer]ER[employer]Y TE[employer]ER) 12 mg STK-MED ONCE IV ; Start 08/19/19 at 15:50; Stop 08/30/19 at 11:24; Status DC Potassium Chloride 80 meq/ Magnesium Sulfate 20 meq/ Multivitamins 10 ml/Chromium/ Copper/Manganese/ Seleni/Zn 0.5 ml/ Insulin Human Regular 15 unit/ Total Parenteral Nutrition/Amino Acids/Dextrose/ Fat Emulsion Intravenous 1,920 ml @ 80 mls/hr TPN CONT IV Last administered on 08/30/19at 21:40; Start 08/30/19 at 22:00; Stop 08/31/19 at 21:59; Status DC Lidocaine HCl (Buffered Lidocaine 1%) 6 ml 1X ONCE INJ Last administered on 08/30/19at 14:15; Start 08/30/19 at 14:15; Stop 08/30/19 at 14:16; Status DC Potassium Chloride 80 meq/ Magnesium Sulfate 20 meq/ Multivitamins 10 ml/Chromium/ Copper/Manganese/ Seleni/Zn 1 ml/ Insulin Human Regular 15 unit/ Total Parenteral Nutrition/Amino Acids/Dextrose/ Fat Emulsion Intravenous 1,920 ml @ 80 mls/hr TPN CONT IV Last administered on 08/31/19at 22:04; Start 08/31/19 at 22:00; Stop 09/01/19 at 21:59; Status DC Potassium Chloride/Water 100 ml @ 100 mls/hr 1X ONCE IV Last administered on 09/01/19at 11:34; Start 09/01/19 at 11:00; Stop 09/01/19 at 11:59; Status DC Potassium Chloride 90 meq/ Magnesium Sulfate 20 meq/ Multivitamins 10 ml/Chromium/ Copper/Manganese/ Seleni/Zn 1 ml/ Insulin Human Regular 15 unit/ Total Parenteral Nutrition/Amino Acids/Dextrose/ Fat Emulsion Intravenous 1,920 ml @ 80 mls/hr TPN CONT IV Last administered on 09/01/19at 22:57; Start 09/01/19 at 22:00; Stop 09/02/19 at 21:59; Status DC Potassium Chloride 90 meq/ Magnesium Sulfate 20 meq/ Multivitamins 10 ml/Chromium/ Copper/Manganese/ Seleni/Zn 1 ml/ Insulin Human Regular 15 unit/ Total Parenteral Nutrition/Amino Acids/Dextrose/ Fat Emulsion Intravenous 1,920 ml @ 80 mls/hr TPN CONT IV Last administered on 09/02/19at 22:48; Start 09/02/19 at 22:00; Stop 09/03/19 at 21:59; Status DC Potassium Chloride 90 meq/ Magnesium Sulfate 20 meq/ Multivitamins 10 ml/Chromium/ Copper/Manganese/ Seleni/Zn 1 ml/ Insulin Human Regular 15 unit/ Total Parenteral Nutrition/Amino Acids/Dextrose/ Fat Emulsion Intravenous 1,890 ml @ 78.75 mls/ hr TPN CONT IV Last administered on 09/03/19at 22:15; Start 09/03/19 at 22:00; Stop 09/04/19 at 21:59; Status DC Linezolid/Dextrose 300 ml @ 300 mls/hr Q12HR IV Last administered on 09/06/19at 21:08; Start 09/04/19 at 09:00; Stop 09/07/19 at 08:11; Status DC Daptomycin 450 mg/ Sodium Chloride 50 ml @ 100 mls/hr Q24H IV Last administered on 09/07/19at 09:25; Start 09/04/19 at 09:00; Stop 09/08/19 at 08:30; Status DC Potassium Chloride 90 meq/ Magnesium Sulfate 20 meq/ Multivitamins 10 ml/Chromium/ Copper/Manganese/ Seleni/Zn 1 ml/ Insulin Human Regular 15 unit/ Total Parenteral Nutrition/Amino Acids/Dextrose/ Fat Emulsion Intravenous 1,890 ml @ 78.75 mls/ hr TPN CONT IV Last administered on 09/04/19at 21:34; Start 09/04/19 at 22:00; Stop 09/05/19 at 21:59; Status DC Lorazepam (Ativan Inj) 2 mg STK-MED ONCE .ROUTE ; Start 09/04/19 at 14:58; Stop 09/04/19 at 14:58; Status DC Metoprolol Tartrate (Lopressor Vial) 5 mg 1X ONCE IVP Last administered on 09/04/19at 15:31; Start 09/04/19 at 15:15; Stop 09/04/19 at 15:16; Status DC Lorazepam (Ativan Inj) 2 mg 1X ONCE IVP Last administered on 09/04/19at 15:30; Start 09/04/19 at 15:15; Stop 09/04/19 at 15:16; Status DC Enoxaparin Sodium (Lovenox 40mg Syringe) 40 mg Q24H SQ Last administered on 09/23/19at 17:44; Start 09/04/19 at 17:00; Stop 09/25/19 at 06:50; Status DC Lorazepam (Ativan Inj) 1 mg PRN Q4HRS PRN IVP ANXIETY / AGITATION MILD-MOD Last administered on 09/18/19at 15:55; Start 09/04/19 at 19:15; Stop 09/20/19 at 11:45; Status DC Lorazepam (Ativan Inj) 2 mg PRN Q4HRS PRN IVP ANXIETY / AGITATION SEVERE Last administered on 09/19/19at 07:55; Start 09/04/19 at 19:15; Stop 09/20/19 at 11:45; Status DC Fentanyl Citrate (Fentanyl 2ml Vial) 50 mcg PRN Q4HRS PRN IVP SEVERE PAIN Last administered on 09/26/19at 00:52; Start 09/05/19 at 13:15 Fentanyl Citrate (Fentanyl 2ml Vial) 25 mcg PRN Q4HRS PRN IVP MODERATE PAIN Last administered on 09/24/19at 21:55; Start 09/05/19 at 13:15 Potassium Chloride 90 meq/ Magnesium Sulfate 20 meq/ Multivitamins 10 ml/Chromium/ Copper/Manganese/ Seleni/Zn 1 ml/ Insulin Human Regular 15 unit/ Total Parenteral Nutrition/Amino Acids/Dextrose/ Fat Emulsion Intravenous 1,890 ml @ 78.75 mls/ hr TPN CONT IV Last administered on 09/05/19at 22:18; Start 09/05/19 at 22:00; Stop 09/06/19 at 21:59; Status DC Furosemide (Lasix) 40 mg 1X ONCE IVP Last administered on 09/05/19at 21:51; Start 09/05/19 at 21:45; Stop 09/05/19 at 21:48; Status DC Albumin Human 100 ml @ 100 mls/hr 1X PRN PRN IV SEE COMMENTS; Start 09/06/19 at 01:30 Furosemide (Lasix) 40 mg [id number] IVP Last administered on 09/21/19at 08:04; Start 09/06/19 at 14:00; Stop 09/21/19 at 13:07; Status DC Potassium Chloride 90 meq/ Magnesium Sulfate 20 meq/ Multivitamins 10 ml/Chromium/ Copper/Manganese/ Seleni/Zn 1 ml/ Insulin Human Regular 15 unit/ Total Parenteral Nutrition/Amino Acids/Dextrose/ Fat Emulsion Intravenous 1,800 ml @ 75 mls/hr TPN CONT IV Last administered on 09/06/19at 22:31; Start 09/06/19 at 22:00; Stop 09/07/19 at 21:59; Status DC Potassium Chloride 90 meq/ Magnesium Sulfate 20 meq/ Multivitamins 10 ml/Chromium/ Copper/Manganese/ Seleni/Zn 1 ml/ Insulin Human Regular 15 unit/ Total Parenteral Nutrition/Amino Acids/Dextrose/ Fat Emulsion Intravenous 1,800 ml @ 75 mls/hr TPN CONT IV Last administered on 09/07/19at 22:28; Start 09/07/19 at 22:00; Stop 09/08/19 at 21:59; Status DC Potassium Chloride 110 meq/ Magnesium Sulfate 20 meq/ Multivitamins 10 ml/Chromium/ Copper/Manganese/ Seleni/Zn 1 ml/ Insulin Human Regular 15 unit/ Total Parenteral Nutrition/Amino Acids/Dextrose/ Fat Emulsion Intravenous 1,800 ml @ 75 mls/hr TPN CONT IV Last administered on 09/08/19at 22:01; Start 09/08/19 at 22:00; Stop 09/09/19 at 21:59; Status DC Saliva Substitute (Biotene Moisturizing Mouth) 2 spray PRN Q15MIN PRN PO DRY MOUTH; Start 09/08/19 at 11:00 Potassium Chloride 110 meq/ Magnesium Sulfate 20 meq/ Multivitamins 10 ml/Chromium/ Copper/Manganese/ Seleni/Zn 1 ml/ Insulin Human Regular 15 unit/ Total Parenteral Nutrition/Amino Acids/Dextrose/ Fat Emulsion Intravenous 1,800 ml @ 75 mls/hr TPN CONT IV Last administered on 09/09/19at 22:21; Start 09/09/19 at 22:00; Stop 09/10/19 at 21:59; Status DC Potassium Chloride 110 meq/ Magnesium Sulfate 20 meq/ Multivitamins 10 ml/Chromium/ Copper/Manganese/ Seleni/Zn 1 ml/ Insulin Human Regular 15 unit/ Total Parenteral Nutrition/Amino Acids/Dextrose/ Fat Emulsion Intravenous 1,800 ml @ 75 mls/hr TPN CONT IV Last administered on 09/10/19at 22:04; Start 09/10/19 at 22:00; Stop 09/11/19 at 21:59; Status DC Potassium Chloride 110 meq/ Magnesium Sulfate 20 meq/ Multivitamins 10 ml/Chromium/ Copper/Manganese/ Seleni/Zn 1 ml/ Insulin Human Regular 15 unit/ Total Parenteral Nutrition/Amino Acids/Dextrose/ Fat Emulsion Intravenous 1,800 ml @ 75 mls/hr TPN CONT IV Last administered on 09/11/19at 22:48; Start 09/11/19 at 22:00; Stop 09/12/19 at 21:59; Status DC Potassium Chloride 70 meq/ Magnesium Sulfate 20 meq/ Multivitamins 10 ml/Chromium/ Copper/Manganese/ Seleni/Zn 1 ml/ Insulin Human Regular 15 unit/ Total Parenteral Nutrition/Amino Acids/Dextrose/ Fat Emulsion Intravenous 1,800 ml @ 75 mls/hr TPN CONT IV Last administered on 09/12/19at 21:39; Start 09/12/19 at 22:00; Stop 09/13/19 at 21:59; Status DC Meropenem 500 mg/ Sodium Chloride 50 ml @ 100 mls/hr Q6HRS IV Last administered on 09/14/19at 06:02; Start 09/12/19 at 18:00; Stop 09/14/19 at 09:59; Status DC Barium Sulfate (Varibar Thin Liquid Apple) 148 gm 1X ONCE PO ; Start 09/13/19 at 11:45; Stop 09/13/19 at 11:49; Status DC Potassium Chloride 70 meq/ Magnesium Sulfate 20 meq/ Multivitamins 10 ml/Chromium/ Copper/Manganese/ Seleni/Zn 1 ml/ Insulin Human Regular 15 unit/ Total Parenteral Nutrition/Amino Acids/Dextrose/ Fat Emulsion Intravenous 1,800 ml @ 75 mls/hr TPN CONT IV Last administered on 09/13/19at 22:27; Start 09/13/19 at 22:00; Stop 09/14/19 at 21:59; Status DC Piperacillin Sod/ Tazobactam Sod 3.375 gm/Sodium Chloride 50 ml @ 100 mls/hr Q6HRS IV Last administered on 09/22/19at 06:10; Start 09/14/19 at 12:00; Stop 09/22/19 at 07:26; Status DC Potassium Chloride 70 meq/ Magnesium Sulfate 20 meq/ Multivitamins 10 ml/Chromium/ Copper/Manganese/ Seleni/Zn 1 ml/ Insulin Human Regular 15 unit/ Total Parenteral Nutrition/Amino Acids/Dextrose/ Fat Emulsion Intravenous 1,800 ml @ 75 mls/hr TPN CONT IV Last administered on 09/14/19at 22:03; Start 09/14/19 at 22:00; Stop 09/15/19 at 21:59; Status DC Potassium Chloride 70 meq/ Magnesium Sulfate 20 meq/ Multivitamins 10 ml/Chromium/ Copper/Manganese/ Seleni/Zn 1 ml/ Insulin Human Regular 15 unit/ Total Parenteral Nutrition/Amino Acids/Dextrose/ Fat Emulsion Intravenous 1,800 ml @ 75 mls/hr TPN CONT IV Last administered on 09/15/19at 22:33; Start 09/15/19 at 22:00; Stop 09/16/19 at 21:59; Status DC Potassium Chloride 70 meq/ Magnesium Sulfate 20 meq/ Multivitamins 10 ml/Chromium/ Copper/Manganese/ Seleni/Zn 1 ml/ Insulin Human Regular 15 unit/ Total Parenteral Nutrition/Amino Acids/Dextrose/ Fat Emulsion Intravenous 1,800 ml @ 75 mls/hr TPN CONT IV Last administered on 09/16/19at 23:13; Start 09/16/19 at 22:00; Stop 09/17/19 at 21:59; Status DC Potassium Chloride 80 meq/ Magnesium Sulfate 20 meq/ Multivitamins 10 ml/Chromium/ Copper/Manganese/ Seleni/Zn 1 ml/ Insulin Human Regular 15 unit/ Total Parenteral Nutrition/Amino Acids/Dextrose/ Fat Emulsion Intravenous 1,800 ml @ 75 mls/hr TPN CONT IV Last administered on 09/17/19at 22:30; Start 09/17/19 at 22:00; Stop 09/18/19 at 21:59; Status DC Potassium Chloride 80 meq/ Magnesium Sulfate 20 meq/ Multivitamins 10 ml/Chromium/ Copper/Manganese/ Seleni/Zn 1 ml/ Insulin Human Regular 15 unit/ Total Parenteral Nutrition/Amino Acids/Dextrose/ Fat Emulsion Intravenous 1,800 ml @ 75 mls/hr TPN CONT IV Last administered on 09/18/19at 21:54; Start 09/18/19 at 22:00; Stop 09/19/19 at 21:59; Status DC Potassium Chloride/Water 100 ml @ 100 mls/hr 1X ONCE IV Last administered on 09/19/19at 10:15; Start 09/19/19 at 10:00; Stop 09/19/19 at 10:59; Status DC Potassium Chloride 90 meq/ Magnesium Sulfate 20 meq/ Multivitamins 10 ml/ Chromium/ Copper/Manganese/ Seleni/Zn 1 ml/ Insulin Human Regular 20 unit/ Total Parenteral Nutrition/Amino Acids/Dextrose/ Fat Emulsion Intravenous 1,800 ml @ 75 mls/hr TPN CONT IV Last administered on 09/19/19at 22:28; Start 09/19/19 at 22:00; Stop 09/20/19 at 21:59; Status DC Potassium Chloride 90 meq/ Magnesium Sulfate 20 meq/ Multivitamins 10 ml/Chromium/ Copper/Manganese/ Seleni/Zn 1 ml/ Insulin Human Regular 20 unit/ Total Parenteral Nutrition/Amino Acids/Dextrose/ Fat Emulsion Intravenous 1,800 ml @ 75 mls/hr TPN CONT IV Last administered on 09/20/19at 22:08; Start 09/20/19 at 22:00; Stop 09/21/19 at 21:59; Status DC Lorazepam (Ativan Inj) 0.25 mg PRN Q4HRS PRN IVP ANXIETY / AGITATION Last administered on 09/21/19at 07:55; Start 09/21/19 at 07:30 Potassium Chloride 90 meq/ Magnesium Sulfate 20 meq/ Multivitamins 10 ml/Chromium/ Copper/Manganese/ Seleni/Zn 1 ml/ Insulin Human Regular 20 unit/ Total Parenteral Nutrition/Amino Acids/Dextrose/ Fat Emulsion Intravenous 1,800 ml @ 75 mls/hr TPN CONT IV Last administered on 09/21/19at 23:13; Start 09/21/19 at 22:00; Stop 09/22/19 at 21:59; Status DC Furosemide (Lasix) 40 mg DAILY IVP Last administered on 09/23/19at 11:14; Start 09/21/19 at 13:30; Stop 09/25/19 at 09:12; Status DC Fluoxetine HCl (PROzac) 20 mg QHS PEG Last administered on 09/24/19at 21:47; Start 09/22/19 at 21:00 Fentanyl (Duragesic 50mcg/ Hr Patch) 1 patch Q72H TD Last administered on 09/22/19at 21:22; Start 09/22/19 at 21:00 Potassium Chloride 40 meq/ Potassium Acetate 60 meq/Magnesium Sulfate 10 meq/ Multivitamins 10 ml/Chromium/ Copper/Manganese/ Seleni/Zn 1 ml/ Insulin Human Regular 20 unit/ Total Parenteral Nutrition/Amino Acids/Dextrose/ Fat Emulsion Intravenous 1,800 ml @ 75 mls/hr TPN CONT IV Last administered on 09/23/19at 00:03; Start 09/22/19 at 22:00; Stop 09/23/19 at 21:59; Status DC Potassium Acetate 80 meq/Magnesium Sulfate 5 meq/ Multivitamins 10 ml/Chromium/ Copper/Manganese/ Seleni/Zn 1 ml/ Insulin Human Regular 20 unit/ Total Parenteral Nutrition/Amino Acids/Dextrose/ Fat Emulsion Intravenous 1,920 ml @ 80 mls/hr TPN CONT IV Last administered on 09/23/19at 21:59; Start 09/23/19 at 22:00; Stop 09/24/19 at 21:59; Status DC Potassium Acetate 60 meq/Magnesium Sulfate 5 meq/ Multivitamins 10 ml/Chromium/ Copper/Manganese/ Seleni/Zn 1 ml/ Insulin Human Regular 30 unit/ Total Parenteral Nutrition/Amino Acids/Dextrose/ Fat Emulsion Intravenous 1,920 ml @ 80 mls/hr TPN CONT IV Last administered on 09/24/19at 21:54; Start 09/24/19 at 22:00; Stop 09/25/19 at 21:59; Status DC Norepinephrine Bitartrate 8 mg/ Dextrose 258 ml @ 13.332 mls/ hr CONT PRN IV PER PROTOCOL Last administered on 09/25/19at 21:46; Start 09/25/19 at 06:30 Albumin Human 500 ml @ 125 mls/hr 1X ONCE IV Last administered on 09/25/19at 08:10; Start 09/25/19 at 08:15; Stop 09/25/19 at 12:14; Status DC Potassium Acetate 40 meq/Magnesium Sulfate 5 meq/ Multivitamins 10 ml/Chromium/ Copper/Manganese/ Seleni/Zn 1 ml/ Insulin Human Regular 30 unit/ Total Parenteral Nutrition/Amino Acids/Dextrose/ Fat Emulsion Intravenous 1,920 ml @ 80 mls/hr TPN CONT IV Last administered on 09/25/19at 22:23; Start 09/25/19 at 22:00; Stop 09/26/19 at 21:59 Meropenem 1 gm/ Sodium Chloride 100 ml @ 200 mls/hr Q8HRS IV ; Start 09/25/19 at 14:00; Status Cancel Meropenem 1 gm/ Sodium Chloride 100 ml @ 200 mls/hr Q8HRS IV Last administered on 09/25/19at 11:04; Start 09/25/19 at 10:00; Stop 09/25/19 at 13:00; Status DC Meropenem 1 gm/ Sodium Chloride 100 ml @ 200 mls/hr Q12HR IV Last administered on 09/25/19at 21:46; Start 09/25/19 at 21:00 Sodium Chloride 1,000 ml @ 1,000 mls/hr 1X ONCE IV Last administered on 09/25/19at 11:06; Start 09/25/19 at 10:45; Stop 09/25/19 at 11:44; Status DC Micafungin Sodium 100 mg/Dextrose 100 ml @ 100 mls/hr Q24H IV Last administered on 09/25/19at 14:12; Start 09/25/19 at 11:00 Daptomycin 410 mg/ Sodium Chloride 50 ml @ 100 mls/hr Q24H IV Last administered on 09/25/19at 14:14; Start 09/25/19 at 14:00 Midazolam HCl (Versed) 2 mg STK-MED ONCE .ROUTE ; Start 09/25/19 at 14:47; Stop 09/25/19 at 14:48; Status DC Fentanyl Citrate (Fentanyl 2ml Vial) 100 mcg STK-MED ONCE .ROUTE ; Start 09/25/19 at 14:47; Stop 09/25/19 at 14:48; Status DC Flumazenil (Romazicon) 0.5 mg STK-MED ONCE IV ; Start 09/25/19 at 14:48; Stop 09/25/19 at 14:48; Status DC Naloxone HCl (Narcan) 0.4 mg STK-MED ONCE .ROUTE ; Start 09/25/19 at 14:48; Stop 09/25/19 at 14:48; Status DC Lidocaine HCl (Lidocaine 1% 20ml Vial) 20 ml STK-MED ONCE .ROUTE ; Start 09/25/19 at 14:48; Stop 09/25/19 at 14:48; Status DC Midazolam HCl (Versed) 2 mg 1X ONCE IV Last administered on 09/25/19at 15:28; Start 09/25/19 at 15:00; Stop 09/25/19 at 15:01; Status DC Fentanyl Citrate (Fentanyl 2ml Vial) 100 mcg 1X ONCE IV Last administered on 09/25/19at 15:28; Start 09/25/19 at 15:00; Stop 09/25/19 at 15:01; Status DC Lidocaine HCl (Lidocaine 1% 20ml Vial) 20 ml 1X ONCE INJ Last administered on 09/25/19at 15:30; Start 09/25/19 at 15:00; Stop 09/25/19 at 15:01; Status DC Sodium Chloride 1,000 ml @ 100 mls/hr Q10H IV Last administered on 09/26/19at 02:31; Start 09/25/19 at 20:00 Sodium Bicarbonate (Sodium Bicarb Adult 8.4% Syr) 50 meq 1X ONCE IV Last administered on 09/25/19at 21:47; Start 09/25/19 at 22:00; Stop 09/25/19 at 22:01; Status DC Active Scripts Active Reported Bisoprolol Fumarate 5 Mg Tablet 10 Mg PO DAILY Vitals/I & O Vital Sign - Last 24 Hours 09/25/19 09/25/19 09/25/19 09/25/19 08:00 08:00 08:30 09:00 Temp 100.2 100.2 Pulse 137 130 130 Resp B/P (MAP) 81/55 (64) 98/54 (69) 95/60 (72) Pulse Ox 100 100 100 O2 Delivery Venturi Mask Venturi Mask Venturi Mask Venturi Mask O2 Flow Rate 15.0 15.0 15.0 15.0 09/25/19 09/25/19 09/25/19 09/25/19 09:48 10:00 10:05 10:20 Temp 100.2 100.2 100.2 100.2 100.2 100.2 Pulse 150 130 150 148 Resp 28 28 28 B/P (MAP) 116/72 106/69 (81) 106/72 102/68 Pulse Ox 100 O2 Delivery Venturi Mask O2 Flow Rate 15.0 6/7/20 6/ 6//09/25/19 10:35 11:00 11:33 12:00 Temp 100.3 100.2 100.3 100.2 Pulse 148 133 148 Resp B/P (MAP) 105/58 113/66 (82) 102/53 Pulse Ox 100 O2 Delivery Venturi Mask Venturi Mask O2 Flow Rate 15.0 15.0 6/ 6/ 6//09/25/19 12:00 14:39 15:09 15:28 Temp 98.6 98.6 Pulse 134 150 Resp B/P (MAP) 119/62 (81) Pulse Ox 100 100 99 94 O2 Delivery Venturi Mask Venturi Mask Venturi Mask Venturi Mask O2 Flow Rate 15.0 15.0 15.0 15.0 6/ 6// 6//09/25/19 15:28 15:30 15:35 15:40 Pulse 150 148 148 Resp 28 B/P (MAP) 98/46 (63) 101/46 (64) 106/50 (68) Pulse Ox 95 95 96 O2 Delivery Venturi Mask Venturi Mask Venturi Mask O2 Flow Rate 15.0 15.0 15.0 09/24/ 6/07 10//09/25/19 15:45 15:50 15:55 16:00 Pulse 146 147 146 146 Resp 28 B/P (MAP) 88/42 (57) 98/56 (70) 108/56 (73) 104/49 (67) Pulse Ox 94 96 97 97 O2 Delivery Venturi Mask Venturi Mask Venturi Mask Venturi Mask O2 Flow Rate 15.0 15.0 15.0 15.0 09/24/ 6/ 6/ 6/11/06 16:00 16:05 16:10 16:15 Pulse 147 147 147 Resp B/P (MAP) 105/51 (69) 110/43 (65) 113/52 (72) Pulse Ox 99 100 100 O2 Delivery Venturi Mask Venturi Mask Venturi Mask Venturi Mask O2 Flow Rate 15.0 15.0 15.0 15.0 6/20 09/25/19 09/25/19 09/25/19 16:20 16:25 16:30 16:35 Pulse 146 145 145 144 Resp 26 B/P (MAP) 112/52 (72) 106/51 (69) 107/52 (70) 106/50 (68) Pulse Ox 100 99 99 99 O2 Delivery Venturi Mask Venturi Mask Venturi Mask Venturi Mask O2 Flow Rate 15.0 15.0 15.0 15.0 09/25/19 09/25/19 09/25/19 09/25/19 16:40 16:45 16:50 16:55 Pulse 144 145 143 143 Resp 25 B/P (MAP) 108/53 (71) 107/52 (70) 103/51 (68) 108/54 (72) Pulse Ox 99 100 100 100 O2 Delivery Venturi Mask Venturi Mask Venturi Mask Venturi Mask O2 Flow Rate 15.0 15.0 15.0 15.0 09/25/19 09/25/19 09/25/19 09/25/19 17:00 17:05 17:10 17:15 Pulse 141 141 140 139 Resp 25 B/P (MAP) 98/52 (67) 103/54 (70) 110/53 (72) 80/53 (62) Pulse Ox 100 100 99 99 O2 Delivery Venturi Mask Venturi Mask Venturi Mask Venturi Mask O2 Flow Rate 15.0 15.0 15.0 15.0 09/25/19 09/25/19 09/25/19 09/25/19 17:20 17:25 17:36 19:00 Pulse 138 136 136 126 Resp 22 B/P (MAP) 104/55 (71) 107/52 (70) 106/54 (71) Pulse Ox 100 96 99 99 O2 Delivery Venturi Mask Venturi Mask Venturi Mask Venturi Mask O2 Flow Rate 15.0 15.0 15.0 09/25/19 09/25/19 09/25/19 09/25/19 19:32 20:00 20:00 21:00 Temp 98.8 98.8 Pulse 124 114 Resp 18 18 B/P (MAP) 110/56 (74) 102/50 (67) 109/70 (83) Pulse Ox 99 100 100 O2 Delivery AVAPS ON V60 BiPAP/CPAP Bi-pap BiPAP/CPAP 09/25/19 09/25/19 09/26/19 09/26/19 22:00 23:00 00:00 00:00 Temp 98.4 98.4 Pulse 88 98 72 Resp 18 18 20 B/P (MAP) 152/74 (100) 140/74 (96) 166/80 (108) 136/77 (96) 164/89 (114) Pulse Ox 100 100 100 O2 Delivery BiPAP/CPAP BiPAP/CPAP BiPAP/CPAP Bi-pap 09/26/19 09/26/19 09/26/19 09/26/19 00:16 00:52 01:00 02:00 Pulse 90 112 Resp 18 18 18 B/P (MAP) 138/72 (94) 128/54 (78) Pulse Ox 99 100 100 100 O2 Delivery AVAPS ON V60 BiPAP/CPAP BiPAP/CPAP BiPAP/CPAP 09/26/19 09/26/19 09/26/19 09/26/19 02:10 03:00 04:00 04:00 Temp 98.8 98.8 Pulse 100 93 Resp 18 18 B/P (MAP) 134/70 (91) 139/72 (94) Pulse Ox 99 100 100 O2 Delivery AVAPS ON V60 BiPAP/CPAP Bi-pap BiPAP/CPAP 09/26/19 09/26/19 09/26/19 09/26/19 04:31 05:00 05:50 06:00 Pulse 90 96 Resp 18 18 B/P (MAP) 136/72 (93) 124/64 (84) Pulse Ox 99 100 99 100 O2 Delivery AVAPS ON V60 BiPAP/CPAP AVAPS ON V60 BiPAP/CPAP Intake and Output 09/25/19 09/25/19 09/26/19 15:00 23:00 07:00 Intake Total 1035 ml 8163 ml 366 ml Output Total 335 ml 945 ml 865 ml Balance 700 ml 7218 ml -499 ml Hemodynamically unstable?: No Is patient in severe pain?: No Is NPO status required?: No DAVIN LANDEROS MD Sep 26, 2019 07:32
[2019-09-26 07:37] LABS: BASO % 0 % (0-3); EOS # 0.1 x10^3/uL (0.0-0.7); EOS % 1 % (0-3); HEMATOCRIT 26.9 % (36.0-47.0); HEMOGLOBIN 8.8 g/dL (12.0-15.5); LYMPH # 0.9 x10^3/uL (1.0-4.8); LYMPH % 7 % (24-48); MEAN CORPUSCULAR HEMOGLOBIN 29 pg (25-35); MEAN CORPUSCULAR HGB CONC 33 g/dL (31-37); MEAN CORPUSCULAR VOLUME 89 fL (79-100); MONO # 0.6 x10^3/uL (0.0-1.1); MONO % 4 % (0-9); NEUT # 12.1 x10^3/uL (1.8-7.7); NEUT % 88 % (31-73); PLATELET COUNT 311 x10^3/uL (140-400); RED BLOOD COUNT 3.03 x10^6/uL (3.50-5.40); RED CELL DISTRIBUTION WIDTH 17.2 % (11.5-14.5); WHITE BLOOD COUNT 13.8 x10^3/uL (4.0-11.0)
[2019-09-26 07:38] LABS: ALBUMIN 1.5 g/dL (3.4-5.0); ALBUMIN/GLOBULIN RATIO 0.4 (1.0-1.7); CALCIUM 9.9 mg/dL (8.5-10.1); CREATININE 1.3 mg/dL (0.6-1.0); GFR 43.5; POTASSIUM 4.1 mmol/L (3.5-5.1); TOTAL BILIRUBIN 0.5 mg/dL (0.2-1.0); TOTAL PROTEIN 5.3 g/dL (6.4-8.2)
[2019-09-26] MEDS: PANTOPRAZOLE IV PUSH 40 MG VIAL. IVP SCH (07:46)
[2019-09-26] MEDS: MEROPENEM 1 GM in IV NORMAL SALINE 100ML 100 ML IV SCH ×2 (07:48→20:55)
--- NOTE | 2019-09-26 07:48 | PDOC ---
Infectious Disease Note Subjective: Subjective Patient remains lethargic Received 4 units of packed RBC yesterday Underwent IR drain placement, bloodstained drainage Off Levophed this morning T-max 100.3 Vital Signs: Vital Signs Vital Signs Date Time Temp Pulse Resp B/P (MAP) Pulse Ox O2 Delivery O2 Flow Rate FiO2 09/26/19 07:00 100 18 102/54 (70) 100 BiPAP/CPAP 09/26/19 04:00 98.8 98.8 09/25/19 17:36 15.0 Physical Exam: PHYSICAL EXAM GENERAL:lethargic, arousable though extremely weak HEENT: NGT in place. Oral mucosa dry NECK: Tracheostomy LUNGS: Diminished aeration bases, no accessory muscle use HEART: S1, S2, tachy, regular ABDOMEN: Mild distention, bowel sounds present, soft, grimaces to palpation Right lateral side drainage bag, 3 drains with bloodstained drainage : Lind ( 09/24) EXTREMITIES: Trace edema .no cyanosis SKIN: no signs of gen rash X RAY TECHNOLOGIST: Lethargic LUE-PICC (09/15) without signs of complications Medications: Inpatient Meds: Current Medications Medications (Trade) Dose Ordered Sig/Yvon Start Time Stop Time Status Last Admin Dose Admin Acetaminophen (Tylenol Supp) 650 mg PRN Q6HRS PRN 07/12/19 10:30 09/25/19 14:41 Acetaminophen (Tylenol) 650 mg PRN Q6HRS PRN 07/09/19 03:36 08/31/19 10:25 DC 08/04/19 19:56 Albumin Human 500 ml @ 125 mls/hr 1X ONCE 09/25/19 08:15 09/25/19 12:14 DC 09/25/19 08:10 Albuterol Sulfate (Ventolin Neb Soln) 2.5 mg 1X ONCE 07/05/19 22:30 07/05/19 22:31 DC 07/06/19 00:56 Alteplase, Recombinant (Cathflo For Central Catheter Clearance) 1 mg 1X ONCE 08/12/19 10:45 08/12/19 10:46 DC 08/12/19 11:44 Amino Acids/ Glycerin/ Electrolytes 1,000 ml @ 75 mls/hr [id number] 08/08/19 21:15 UNV Artificial Tears (Artificial Tears) 1 drop PRN Q15MIN PRN 4/29/20 05:30 09/16/19 10:08 Atenolol (Tenormin) 100 mg DAILY 07/05/19 09:00 07/04/19 20:08 DC Atropine Sulfate (ATROPINE 0.5mg SYRINGE) 0.5 mg PRN Q5MIN PRN 07/21/19 08:15 Barium Sulfate (Varibar Thin Liquid Apple) 148 gm 1X ONCE 09/13/19 11:45 09/13/19 11:49 DC Benzocaine (Hurricaine One) 1 spray 1X ONCE 07/08/19 14:30 07/08/19 14:31 DC 07/08/19 16:38 Bisacodyl (Dulcolax Supp) 10 mg STK-MED ONCE 08/15/19 10:59 08/15/19 10:59 DC Bumetanide (Bumex) 2 mg DAILY 08/26/19 10:00 09/05/19 17:15 DC 09/05/19 08:07 Bupivacaine HCl/ Epinephrine Bitart (Sensorcain-Epi 0.5%-1:[id number] Mpf) 30 ml STK-MED ONCE 08/15/19 10:58 08/15/19 10:58 DC 08/15/19 12:01 Calcium Carbonate/ Glycine (Tums) 500 mg PRN AFTMEALHC PRN 07/06/19 17:45 08/31/19 10:25 DC Calcium Chloride 1000 mg/Sodium Chloride 110 ml @ 220 mls/hr 1X ONCE 07/05/19 22:30 07/05/19 22:59 DC 07/05/19 22:11 Calcium Chloride 3000 mg/Sodium Chloride 1,030 ml @ 50 mls/hr [id number] 07/07/19 08:00 07/09/19 15:23 DC 07/09/19 02:17 Calcium Gluconate (Calcium Gluconate) 2,000 mg 1X ONCE 07/07/19 02:15 07/07/19 02:16 DC 07/07/19 02:19 Calcium Gluconate 1000 mg/Sodium Chloride 110 ml @ 220 mls/hr 1X ONCE 07/06/19 03:30 07/06/19 03:59 DC 07/06/19 03:21 Calcium Gluconate 2000 mg/Sodium Chloride 120 ml @ 220 mls/hr 1X ONCE 07/06/19 07:30 07/06/19 08:02 DC 07/06/19 09:05 Cefepime HCl (Maxipime) 2 gm Q12HR 07/13/19 09:00 07/27/19 09:58 DC 07/26/19 20:56 Cellulose (Surgicel Fibrillar 1x2) 1 each STK-MED ONCE 07/25/19 11:00 07/25/19 11:01 DC Cellulose (Surgicel Hemostat 2x14) 1 each STK-MED ONCE 08/15/19 10:58 08/15/19 10:59 DC Cellulose (Surgicel Hemostat 4x8) 1 each STK-MED ONCE 08/15/19 10:58 08/15/19 10:59 DC Cyclobenzaprine HCl (Flexeril) 10 mg PRN Q6HRS PRN 08/18/19 10:45 Daptomycin 410 mg/ Sodium Chloride 50 ml @ 100 mls/hr Q24H 09/25/19 14:00 09/25/19 14:14 Daptomycin 430 mg/ Sodium Chloride 50 ml @ 100 mls/hr Q24H 08/13/19 13:00 08/18/19 20:58 DC 08/18/19 13:00 Daptomycin 450 mg/ Sodium Chloride 50 ml @ 100 mls/hr Q24H 09/04/19 09:00 09/08/19 08:30 DC 09/07/19 09:25 Daptomycin 485 mg/ Sodium Chloride 50 ml @ 100 mls/hr Q24H 08/22/19 11:00 08/30/19 07:44 DC 08/29/19 13:10 Daptomycin 500 mg/ Sodium Chloride 50 ml @ 100 mls/hr Q48H 07/13/19 08:30 07/29/19 10:07 DC 07/29/19 09:57 Dexamethasone Sodium Phosphate (Decadron) 4 mg STK-MED ONCE 08/15/19 10:56 08/15/19 10:57 DC Dexmedetomidine HCl 400 mcg/ Sodium Chloride 100 ml @ 0 mls/hr CONT PRN 07/21/19 08:15 09/17/19 18:31 DC 09/17/19 12:57 Dextrose (Dextrose 50%-Water Syringe) 12.5 gm PRN Q15MIN PRN 07/04/19 09:30 Digoxin (Lanoxin) 125 mcg 1X ONCE 07/07/19 18:00 07/07/19 18:01 DC 07/07/19 17:10 Diphenhydramine HCl (Benadryl) 25 mg 1X PRN PRN 08/12/19 15:45 08/13/19 15:44 DC Duloxetine HCl (Cymbalta) 30 mg DAILY 08/28/19 14:00 08/31/19 10:25 DC 08/29/19 09:48 Enoxaparin Sodium (Lovenox 100mg Syringe) 100 mg Q12HR 08/09/19 21:00 UNV Enoxaparin Sodium (Lovenox 40mg Syringe) 40 mg Q24H 09/04/19 17:00 09/25/19 06:50 DC 09/23/19 17:44 Etomidate (Amidate) 8 mg 1X ONCE 07/11/19 08:30 07/11/19 08:31 DC 07/11/19 08:33 Fentanyl (Duragesic 50mcg/ Hr Patch) 1 patch Q72H 09/22/19 21:00 09/22/19 21:22 Fentanyl Citrate (Fentanyl 2ml Vial) 100 mcg 1X ONCE 09/25/19 15:00 09/25/19 15:01 DC 09/25/19 15:28 Fentanyl Citrate (Fentanyl 5ml Vial) 250 mcg 1X ONCE 08/26/19 09:15 08/26/19 09:16 DC 08/26/19 09:30 Flumazenil (Romazicon) 0.5 mg STK-MED ONCE 09/25/19 14:48 09/25/19 14:48 DC Fluoxetine HCl (PROzac) 20 mg QHS 09/22/19 21:00 09/24/19 21:47 Furosemide (Lasix) 40 mg DAILY 09/21/19 13:30 09/25/19 09:12 DC 09/23/19 11:14 Haloperidol Lactate (Haldol Inj) 3 mg 1X ONCE 08/22/19 14:30 08/22/19 14:31 DC 08/22/19 14:37 Heparin Sodium (Porcine) (Hep Lock Adult) 500 unit STK-MED ONCE 07/26/19 09:29 07/26/19 09:30 DC Heparin Sodium (Porcine) (Heparin Sodium) 5,000 unit Q12HR 08/15/19 21:00 08/25/19 09:59 DC 08/24/19 20:57 Heparin Sodium (Porcine) 1000 unit/Sodium Chloride 1,001 ml @ 1,001 mls/hr 1X ONCE 08/15/19 12:00 08/15/19 12:59 DC Hydromorphone HCl (Dilaudid Standard LYFT DRIVER) 12 mg STK-MED ONCE 08/19/19 15:50 08/30/19 11:24 DC Hydromorphone HCl (Dilaudid) 1 mg PRN Q4HRS PRN 08/22/19 19:00 09/05/19 17:10 DC 09/05/19 06:25 Info (CONTRAST GIVEN -- Rx MONITORING) 1 each PRN DAILY PRN 07/18/19 11:45 07/20/19 11:44 DC Info (Icu Electrolyte Protocol) 1 ea CONT PRN PRN 07/17/19 13:15 Info (PHARMACY MONITORING -- do not chart) 1 each PRN DAILY PRN 08/12/19 15:45 09/13/19 14:14 DC Info (Tpn Per Pharmacy) 1 each PRN DAILY PRN 07/06/19 12:30 UNV Insulin Human Lispro (HumaLOG) 0-9 UNITS Q6HRS 07/04/19 09:30 09/26/19 00:50 Insulin Human Regular (HumuLIN R VIAL) 5 unit 1X ONCE 07/05/19 22:30 07/05/19 22:31 DC 07/05/19 22:14 Iohexol (Omnipaque 240 Mg/ml) 30 ml 1X ONCE 07/18/19 11:30 07/18/19 11:33 DC 07/18/19 11:30 Iohexol (Omnipaque 300 Mg/ml) 50 ml STK-MED ONCE 08/15/19 10:58 08/15/19 10:59 DC Iohexol (Omnipaque 350 Mg/ml) 90 ml 1X ONCE 07/04/19 03:30 07/04/19 03:31 DC 07/04/19 03:25 Ketorolac Tromethamine (Toradol 30mg Vial) 30 mg 1X ONCE 07/04/19 03:00 07/04/19 03:01 DC 07/04/19 02:54 Lidocaine HCl (Buffered Lidocaine 1%) 6 ml 1X ONCE 08/30/19 14:15 08/30/19 14:16 DC 08/30/19 14:15 Lidocaine HCl (Glydo (Lidocaine) Jelly) 1 ramu 1X ONCE 07/08/19 14:30 07/08/19 14:31 DC 07/08/19 16:38 Lidocaine HCl (Lidocaine 1% 20ml Vial) 20 ml 1X ONCE 09/25/19 15:00 09/25/19 15:01 DC 09/25/19 15:30 Lidocaine HCl (Xylocaine-Mpf 1% 2ml Vial) 2 ml PRN 1X PRN 08/15/19 07:00 08/16/19 06:59 DC Linezolid/Dextrose 300 ml @ 300 mls/hr Q12HR 09/04/19 09:00 09/07/19 08:11 DC 09/06/19 21:08 Lorazepam (Ativan Inj) 0.25 mg PRN Q4HRS PRN 09/21/19 07:30 09/21/19 07:55 Magnesium Sulfate 50 ml @ 25 mls/hr 1X ONCE 08/28/19 09:00 08/28/19 10:59 DC 08/28/19 10:44 Meropenem 1 gm/ Sodium Chloride 100 ml @ 200 mls/hr Q12HR 09/25/19 21:00 09/25/19 21:46 Meropenem 500 mg/ Sodium Chloride 50 ml @ 100 mls/hr Q6HRS 09/12/19 18:00 09/14/19 09:59 DC 09/14/19 06:02 Metoclopramide HCl (Reglan Vial) 10 mg PRN Q3HRS PRN 08/27/19 16:45 09/01/19 04:25 Metoprolol Tartrate (Lopressor Vial) 5 mg 1X ONCE 09/04/19 15:15 09/04/19 15:16 DC 09/04/19 15:31 Metronidazole 100 ml @ 100 mls/hr Q8HRS 08/02/19 10:00 08/09/19 08:10 DC 08/09/19 06:04 Micafungin Sodium 100 mg/Dextrose 100 ml @ 100 mls/hr Q24H 09/25/19 11:00 09/25/19 14:12 Midazolam HCl (Versed) 2 mg 1X ONCE 09/25/19 15:00 09/25/19 15:01 DC 09/25/19 15:28 Midazolam HCl 100 mg/Sodium Chloride 100 ml @ 7 mls/hr CONT PRN 07/16/19 16:00 09/21/19 14:38 DC 07/27/19 15:35 Midazolam HCl 50 mg/Sodium Chloride 50 ml @ 0 mls/hr CONT PRN 07/11/19 08:15 07/16/19 15:59 DC 07/14/19 22:39 Morphine Sulfate (Morphine Sulfate) 2 mg PRN Q2HR PRN 07/04/19 05:00 07/05/19 14:15 DC 07/05/19 12:26 Multi-Ingred Cream/Lotion/Oil/ Oint (Artificial Tears Eye Ointment) 1 ramu PRN Q1HR PRN 07/13/19 17:30 09/21/19 14:39 DC 08/01/19 08:19 Naloxone HCl (Narcan) 0.4 mg STK-MED ONCE 09/25/19 14:48 09/25/19 14:48 DC Norepinephrine Bitartrate 8 mg/ Dextrose 258 ml @ 13.332 mls/ hr CONT PRN 09/25/19 06:30 09/25/19 21:46 Ondansetron HCl (Zofran) 4 mg STK-MED ONCE 08/15/19 10:56 08/15/19 10:57 DC Pantoprazole Sodium (PROTONIX VIAL for IV PUSH) 40 mg DAILYAC 07/04/19 11:30 09/25/19 11:01 Phenylephrine HCl (PHENYLEPHRINE in 0.9% NACL PF) 1 mg STK-MED ONCE 08/15/19 12:34 08/15/19 12:34 DC Piperacillin Sod/ Tazobactam Sod 3.375 gm/Sodium Chloride 50 ml @ 100 mls/hr Q6HRS 09/14/19 12:00 09/22/19 07:26 DC 09/22/19 06:10 Piperacillin Sod/ Tazobactam Sod 4.5 gm/Sodium Chloride 100 ml @ 200 mls/hr 1X ONCE 07/04/19 06:00 07/04/19 06:29 DC 07/04/19 05:44 Potassium Chloride 110 meq/ Magnesium Sulfate 20 meq/ Multivitamins 10 ml/Chromium/ Copper/Manganese/ Seleni/Zn 1 ml/ Insulin Human Regular 15 unit/ Total Parenteral Nutrition/Amino Acids/Dextrose/ Fat Emulsion Intravenous 1,800 ml @ 75 mls/hr TPN CONT 09/11/19 22:00 09/12/19 21:59 DC 09/11/19 22:48 Potassium Chloride 15 meq/ Bicarbonate Dialysis Soln w/ out KCl 5,007.5 ml @ 1,000 mls/ hr Q5H1M 07/17/19 20:00 07/21/19 13:08 DC 07/20/19 18:14 Potassium Chloride 20 meq/ Bicarbonate Dialysis Soln w/ out KCl 5,010 ml @ 1,000 mls/hr Q5H1M 07/13/19 16:00 07/17/19 19:59 DC 07/17/19 14:54 Potassium Chloride 40 meq/ Potassium Acetate 60 meq/Magnesium Sulfate 10 meq/ Multivitamins 10 ml/Chromium/ Copper/Manganese/ Seleni/Zn 1 ml/ Insulin Human Regular 20 unit/ Total Parenteral Nutrition/Amino Acids/Dextrose/ Fat Emulsion Intravenous 1,800 ml @ 75 mls/hr TPN CONT 09/22/19 22:00 09/23/19 21:59 DC 09/23/19 00:03 Potassium Chloride 70 meq/ Magnesium Sulfate 20 meq/ Multivitamins 10 ml/Chromium/ Copper/Manganese/ Seleni/Zn 1 ml/ Insulin Human Regular 15 unit/ Total Parenteral Nutrition/Amino Acids/Dextrose/ Fat Emulsion Intravenous 1,800 ml @ 75 mls/hr TPN CONT 09/16/19 22:00 09/17/19 21:59 DC 09/16/19 23:13 Potassium Chloride 75 meq/ Magnesium Sulfate 15 meq/ Multivitamins 10 ml/Chromium/ Copper/Manganese/ Seleni/Zn 0.5 ml/ Insulin Human Regular 15 unit/ Total Parenteral Nutrition/Amino Acids/Dextrose/ Fat Emulsion Intravenous 1,920 ml @ 80 mls/hr TPN CONT 08/27/19 22:00 08/28/19 21:59 DC 08/27/19 22:41 Potassium Chloride 75 meq/ Magnesium Sulfate 15 meq/Calcium Gluconate 8 meq/ Multivitamins 10 ml/Chromium/ Copper/Manganese/ Seleni/Zn 0.5 ml/ Insulin Human Regular 15 unit/ Total Parenteral Nutrition/Amino Acids/Dextrose/ Fat Emulsion Intravenous 1,920 ml @ 80 mls/hr TPN CONT 08/25/19 22:00 08/26/19 21:59 DC 08/25/19 22:28 Potassium Chloride 75 meq/ Magnesium Sulfate 15 meq/Calcium Gluconate 8 meq/ Multivitamins 10 ml/Chromium/ Copper/Manganese/ Seleni/Zn 0.5 ml/ Insulin Human Regular 20 unit/ Total Parenteral Nutrition/Amino Acids/Dextrose/ Fat Emulsion Intravenous 1,920 ml @ 80 mls/hr TPN CONT 08/24/19 22:00 08/25/19 21:59 DC 08/24/19 22:00 Potassium Chloride 75 meq/ Magnesium Sulfate 15 meq/Calcium Gluconate 8 meq/ Multivitamins 10 ml/Chromium/ Copper/Manganese/ Seleni/Zn 0.5 ml/ Insulin Human Regular 25 unit/ Total Parenteral Nutrition/Amino Acids/Dextrose/ Fat Emulsion Intravenous 1,920 ml @ 80 mls/hr TPN CONT 08/22/19 22:00 08/23/19 21:59 DC 08/22/19 23:08 Potassium Chloride 75 meq/ Magnesium Sulfate 20 meq/Calcium Gluconate 10 meq/ Multivitamins 10 ml/Chromium/ Copper/Manganese/ Seleni/Zn 0.5 ml/ Insulin Human Regular 25 unit/ Total Parenteral Nutrition/Amino Acids/Dextrose/ Fat Emulsion Intravenous 1,920 ml @ 80 mls/hr TPN CONT 08/21/19 22:00 08/22/19 21:59 DC 08/21/19 22:04 Potassium Chloride 75 meq/ Magnesium Sulfate 20 meq/Calcium Gluconate 10 meq/ Multivitamins 10 ml/Chromium/ Copper/Manganese/ Seleni/Zn 0.5 ml/ Insulin Human Regular 30 unit/ Total Parenteral Nutrition/Amino Acids/Dextrose/ Fat Emulsion Intravenous 1,920 ml @ 80 mls/hr TPN CONT 08/20/19 22:00 08/21/19 22:00 DC 08/20/19 21:51 Potassium Chloride 80 meq/ Magnesium Sulfate 20 meq/ Multivitamins 10 ml/Chromium/ Copper/Manganese/ Seleni/Zn 0.5 ml/ Insulin Human Regular 15 unit/ Total Parenteral Nutrition/Amino Acids/Dextrose/ Fat Emulsion Intravenous 1,920 ml @ 80 mls/hr TPN CONT 08/30/19 22:00 08/31/19 21:59 DC 08/30/19 21:40 Potassium Chloride 80 meq/ Magnesium Sulfate 20 meq/ Multivitamins 10 ml/Chromium/ Copper/Manganese/ Seleni/Zn 1 ml/ Insulin Human Regular 15 unit/ Total Parenteral Nutrition/Amino Acids/Dextrose/ Fat Emulsion Intravenous 1,800 ml @ 75 mls/hr TPN CONT 09/18/19 22:00 09/19/19 21:59 DC 09/18/19 21:54 Potassium Chloride 90 meq/ Magnesium Sulfate 20 meq/ Multivitamins 10 ml/Chromium/ Copper/Manganese/ Seleni/Zn 1 ml/ Insulin Human Regular 15 unit/ Total Parenteral Nutrition/Amino Acids/Dextrose/ Fat Emulsion Intravenous 1,800 ml @ 75 mls/hr TPN CONT 09/07/19 22:00 09/08/19 21:59 DC 09/07/19 22:28 Potassium Chloride 90 meq/ Magnesium Sulfate 20 meq/ Multivitamins 10 ml/Chromium/ Copper/Manganese/ Seleni/Zn 1 ml/ Insulin Human Regular 20 unit/ Total Parenteral Nutrition/Amino Acids/Dextrose/ Fat Emulsion Intravenous 1,800 ml @ 75 mls/hr TPN CONT 09/21/19 22:00 09/22/19 21:59 DC 09/21/19 23:13 Potassium Chloride/Water 100 ml @ 100 mls/hr 1X ONCE 09/19/19 10:00 09/19/19 10:59 DC 09/19/19 10:15 Potassium Phosphate 20 mmol/ Sodium Chloride 106.6667 ml @ 51.667 m... 1X ONCE 07/13/19 13:00 07/13/19 15:03 DC 07/13/19 12:51 Potassium Acetate 30 meq/Magnesium Sulfate 20 meq/ Calcium Gluconate 10 meq/ Multivitamins 10 ml/Chromium/ Copper/Manganese/ Seleni/Zn 0.5 ml/ Insulin Human Regular 30 unit/ Potassium Chloride 30 meq/ Total Parenteral Nutrition/Amino Acids/Dextrose/ Fat Emulsion Intravenous 1,920 ml @ 80 mls/hr TPN CONT 08/19/19 22:00 08/20/19 21:59 DC 08/19/19 22:34 Potassium Acetate 40 meq/Magnesium Sulfate 5 meq/ Multivitamins 10 ml/Chromium/ Copper/Manganese/ Seleni/Zn 1 ml/ Insulin Human Regular 30 unit/ Total Parenteral Nutrition/Amino Acids/Dextrose/ Fat Emulsion Intravenous 1,920 ml @ 80 mls/hr TPN CONT 09/25/19 22:00 09/26/19 21:59 09/25/19 22:23 Potassium Acetate 55 meq/Magnesium Sulfate 20 meq/ Calcium Gluconate 10 meq/ Multivitamins 10 ml/Chromium/ Copper/Manganese/ Seleni/Zn 0.5 ml/ Insulin Human Regular 30 unit/ Total Parenteral Nutrition/Amino Acids/Dextrose/ Fat Emulsion Intravenous 1,920 ml @ 80 mls/hr TPN CONT 08/18/19 22:00 08/19/19 21:59 DC 08/19/19 01:00 Potassium Acetate 55 meq/Magnesium Sulfate 20 meq/ Calcium Gluconate 10 meq/ Multivitamins 10 ml/Chromium/ Copper/Manganese/ Seleni/Zn 0.5 ml/ Insulin Human Regular 35 unit/ Total Parenteral Nutrition/Amino Acids/Dextrose/ Fat Emulsion Intravenous 1,920 ml @ 80 mls/hr TPN CONT 08/16/19 22:00 08/17/19 21:59 DC 08/16/19 22:02 Potassium Acetate 60 meq/Magnesium Sulfate 5 meq/ Multivitamins 10 ml/Chromium/ Copper/Manganese/ Seleni/Zn 1 ml/ Insulin Human Regular 30 unit/ Total Parenteral Nutrition/Amino Acids/Dextrose/ Fat Emulsion Intravenous 1,920 ml @ 80 mls/hr TPN CONT 09/24/19 22:00 09/25/19 21:59 DC 09/24/19 21:54 Potassium Acetate 65 meq/Magnesium Sulfate 20 meq/ Calcium Gluconate 10 meq/ Multivitamins 10 ml/Chromium/ Copper/Manganese/ Seleni/Zn 0.5 ml/ Insulin Human Regular 30 unit/ Total Parenteral Nutrition/Amino Acids/Dextrose/ Fat Emulsion Intravenous 1,920 ml @ 80 mls/hr TPN CONT 08/17/19 22:00 08/18/19 21:59 DC 08/17/19 22:22 Potassium Acetate 80 meq/Magnesium Sulfate 5 meq/ Multivitamins 10 ml/Chromium/ Copper/Manganese/ Seleni/Zn 1 ml/ Insulin Human Regular 20 unit/ Total Parenteral Nutrition/Amino Acids/Dextrose/ Fat Emulsion Intravenous 1,920 ml @ 80 mls/hr TPN CONT 09/23/19 22:00 09/24/19 21:59 DC 09/23/19 21:59 Prochlorperazine Edisylate (Compazine) 5 mg PACU PRN PRN 08/15/19 07:00 08/16/19 06:59 DC Propofol 20 ml @ As Directed STK-MED ONCE 08/15/19 12:26 08/15/19 12:27 DC Ringer's Solution 1,000 ml @ 30 mls/hr Q24H 08/15/19 07:00 08/15/19 18:59 DC Rocuronium [place] (Zemuron) 50 mg STK-MED ONCE 08/15/19 10:56 08/15/19 10:57 DC Saliva Substitute (Biotene Moisturizing Mouth) 2 spray PRN Q15MIN PRN 09/08/19 11:00 Sevoflurane (Ultane) 60 ml STK-MED ONCE 08/15/19 12:26 08/15/19 12:27 DC Sodium Bicarbonate 50 meq/Sodium Chloride 1,050 ml @ 75 mls/hr Q14H 07/06/19 07:30 07/11/19 10:28 DC 07/10/19 21:10 Sodium Acetate 50 meq/Potassium Acetate 55 meq/ Magnesium Sulfate 20 meq/Calcium Gluconate 10 meq/ Multivitamins 10 ml/Chromium/ Copper/Manganese/ Seleni/Zn 0.5 ml/ Insulin Human Regular 35 unit/ Total Parenteral Nutrition/Amino Acids/Dextrose/ Fat Emulsion Intravenous 1,800 ml @ 75 mls/hr TPN CONT 08/13/19 22:00 08/14/19 21:59 DC 08/13/19 22:03 Sodium Bicarbonate (Sodium Bicarb Adult 8.4% Syr) 50 meq 1X ONCE 09/25/19 22:00 09/25/19 22:01 DC 09/25/19 21:47 Sodium Chloride 1,000 ml @ 100 mls/hr Q10H 09/25/19 20:00 09/26/19 02:31 Sodium Chloride (Normal Saline Flush) 3 ml QSHIFT PRN 08/15/19 13:45 Sodium Chloride 90 meq/Calcium Gluconate 10 meq/ Multivitamins 10 ml/Chromium/ Copper/Manganese/ Seleni/Zn 0.5 ml/ Total Parenteral Nutrition/Amino Acids/Dextrose/ Fat Emulsion Intravenous 1,512 ml @ 63 mls/hr TPN CONT 07/06/19 22:00 07/07/19 21:59 DC 07/06/19 22:06 Sodium Chloride 90 meq/Calcium Gluconate 10 meq/ Multivitamins 10 ml/Chromium/ Copper/Manganese/ Seleni/Zn 1 ml/ Total Parenteral Nutrition/Amino Acids/Dextrose/ Fat Emulsion Intravenous 55.005 ml @ 2.292 mls/hr TPN CONT 07/06/19 22:00 07/06/19 12:33 DC Sodium Chloride 90 meq/Magnesium Sulfate 10 meq/ Calcium Gluconate 20 meq/ Multivitamins 10 ml/Chromium/ Copper/Manganese/ Seleni/Zn 0.5 ml/ Total Parenteral Nutrition/Amino Acids/Dextrose/ Fat Emulsion Intravenous 1,512 ml @ 63 mls/hr TPN CONT 07/07/19 22:00 07/08/19 21:59 DC 07/07/19 22:25 Sodium Chloride 90 meq/Magnesium Sulfate 12 meq/ Calcium Gluconate 15 meq/ Multivitamins 10 ml/Chromium/ Copper/Manganese/ Seleni/Zn 0.5 ml/ Insulin Human Regular 25 unit/ Total Parenteral Nutrition/Amino Acids/Dextrose/ Fat Emulsion Intravenous 1,400 ml @ 58.333 mls/ hr TPN CONT 07/27/19 22:00 07/28/19 21:59 DC 07/27/19 21:41 Sodium Chloride 90 meq/Potassium Chloride 15 meq/ Magnesium Sulfate 12 meq/Calcium Gluconate 15 meq/ Multivitamins 10 ml/Chromium/ Copper/Manganese/ Seleni/Zn 0.5 ml/ Insulin Human Regular 25 unit/ Total Parenteral Nutrition/Amino Acids/Dextrose/ Fat Emulsion Intravenous 1,400 ml @ 58.333 mls/ hr TPN CONT 07/26/19 22:00 07/27/19 21:59 DC 07/26/19 22:13 Sodium Chloride 90 meq/Potassium Chloride 15 meq/ Potassium Phosphate 10 mmol/ Magnesium Sulfate 8 meq/Calcium Gluconate 15 meq/ Multivitamins 10 ml/Chromium/ Copper/Manganese/ Seleni/Zn 0.5 ml/ Insulin Human Regular 25 unit/ Total Parenteral Nutrition/Amino Acids/Dextrose/ Fat Emulsion Intravenous 1,400 ml @ 58.333 mls/ hr TPN CONT 07/24/19 22:00 07/25/19 21:59 DC 07/24/19 21:20 Sodium Chloride 90 meq/Potassium Chloride 15 meq/ Potassium Phosphate 10 mmol/ Magnesium Sulfate 10 meq/Calcium Gluconate 20 meq/ Multivitamins 10 ml/Chromium/ Copper/Manganese/ Seleni/Zn 0.5 ml/ Total Parenteral Nutrition/Amino Acids/Dextrose/ Fat Emulsion Intravenous 1,400 ml @ 58.333 mls/ hr TPN CONT 07/11/19 22:00 07/12/19 21:59 DC 07/11/19 21:42 Sodium Chloride 90 meq/Potassium Chloride 15 meq/ Potassium Phosphate 10 mmol/ Magnesium Sulfate 12 meq/Calcium Gluconate 15 meq/ Multivitamins 10 ml/Chromium/ Copper/Manganese/ Seleni/Zn 0.5 ml/ Insulin Human Regular 25 unit/ Total Parenteral Nutrition/Amino Acids/Dextrose/ Fat Emulsion Intravenous 1,400 ml @ 58.333 mls/ hr TPN CONT 07/25/19 22:00 07/26/19 21:59 DC 07/25/19 22:24 Sodium Chloride 90 meq/Potassium Chloride 15 meq/ Potassium Phosphate 15 mmol/ Magnesium Sulfate 10 meq/Calcium Gluconate 15 meq/ Multivitamins 10 ml/Chromium/ Copper/Manganese/ Seleni/Zn 0.5 ml/ Total Parenteral Nutrition/Amino Acids/Dextrose/ Fat Emulsion Intravenous 1,400 ml @ 58.333 mls/ hr TPN CONT 07/12/19 22:00 07/13/19 21:59 DC 07/12/19 22:17 Sodium Chloride 90 meq/Potassium Chloride 15 meq/ Potassium Phosphate 15 mmol/ Magnesium Sulfate 10 meq/Calcium Gluconate 20 meq/ Multivitamins 10 ml/Chromium/ Copper/Manganese/ Seleni/Zn 0.5 ml/ Total Parenteral Nutrition/Amino Acids/Dextrose/ Fat Emulsion Intravenous 1,200 ml @ 50 mls/hr TPN CONT 07/10/19 22:00 07/10/19 14:17 DC Sodium Chloride 90 meq/Potassium Chloride 15 meq/ Potassium Phosphate 18 mmol/ Magnesium Sulfate 8 meq/Calcium Gluconate 15 meq/ Multivitamins 10 ml/Chromium/ Copper/Manganese/ Seleni/Zn 0.5 ml/ Insulin Human Regular 10 unit/ Total Parenteral Nutrition/Amino Acids/Dextrose/ Fat Emulsion Intravenous 1,400 ml @ 58.333 mls/ hr TPN CONT 07/15/19 22:00 07/16/19 21:59 DC 07/15/19 21:43 Sodium Chloride 90 meq/Potassium Chloride 15 meq/ Potassium Phosphate 18 mmol/ Magnesium Sulfate 8 meq/Calcium Gluconate 15 meq/ Multivitamins 10 ml/Chromium/ Copper/Manganese/ Seleni/Zn 0.5 ml/ Insulin Human Regular 15 unit/ Total Parenteral Nutrition/Amino Acids/Dextrose/ Fat Emulsion Intravenous 1,400 ml @ 58.333 mls/ hr TPN CONT 07/18/19 22:00 07/19/19 21:59 DC 07/18/19 21:47 Sodium Chloride 90 meq/Potassium Chloride 15 meq/ Potassium Phosphate 18 mmol/ Magnesium Sulfate 8 meq/Calcium Gluconate 15 meq/ Multivitamins 10 ml/Chromium/ Copper/Manganese/ Seleni/Zn 0.5 ml/ Insulin Human Regular 20 unit/ Total Parenteral Nutrition/Amino Acids/Dextrose/ Fat Emulsion Intravenous 1,400 ml @ 58.333 mls/ hr TPN CONT 07/21/19 22:00 07/22/19 21:59 DC 07/21/19 22:45 Sodium Chloride 90 meq/Potassium Chloride 15 meq/ Potassium Phosphate 18 mmol/ Magnesium Sulfate 8 meq/Calcium Gluconate 15 meq/ Multivitamins 10 ml/Chromium/ Copper/Manganese/ Seleni/Zn 0.5 ml/ Total Parenteral Nutrition/Amino Acids/Dextrose/ Fat Emulsion Intravenous 1,400 ml @ 58.333 mls/ hr TPN CONT 07/14/19 22:00 07/15/19 21:59 DC 07/14/19 22:00 Sodium Chloride 90 meq/Potassium Phosphate 15 mmol/ Magnesium Sulfate 12 meq/Calcium Gluconate 15 meq/ Multivitamins 10 ml/Chromium/ Copper/Manganese/ Seleni/Zn 0.5 ml/ Insulin Human Regular 30 unit/ Total Parenteral Nutrition/Amino Acids/Dextrose/ Fat Emulsion Intravenous 1,400 ml @ 58.333 mls/ hr TPN CONT 07/29/19 22:00 07/30/19 21:59 DC 07/29/19 21:49 Sodium Chloride 90 meq/Potassium Phosphate 15 mmol/ Magnesium Sulfate 12 meq/Calcium Gluconate 15 meq/ Multivitamins 10 ml/Chromium/ Copper/Manganese/ Seleni/Zn 0.5 ml/ Insulin Human Regular 40 unit/ Total Parenteral Nutrition/Amino Acids/Dextrose/ Fat Emulsion Intravenous 1,400 ml @ 58.333 mls/ hr TPN CONT 07/30/19 22:00 07/31/19 21:59 DC 07/30/19 21:21 Sodium Chloride 90 meq/Potassium Phosphate 19 mmol/ Magnesium Sulfate 12 meq/Calcium Gluconate 15 meq/ Multivitamins 10 ml/Chromium/ Copper/Manganese/ Seleni/Zn 0.5 ml/ Insulin Human Regular 40 unit/ Total Parenteral Nutrition/Amino Acids/Dextrose/ Fat Emulsion Intravenous 1,400 ml @ 58.333 mls/ hr TPN CONT 07/31/19 22:00 08/01/19 21:59 DC 07/31/19 21:54 Sodium Chloride 90 meq/Potassium Phosphate 5 mmol/ Magnesium Sulfate 12 meq/Calcium Gluconate 15 meq/ Multivitamins 10 ml/Chromium/ Copper/Manganese/ Seleni/Zn 0.5 ml/ Insulin Human Regular 30 unit/ Total Parenteral Nutrition/Amino Acids/Dextrose/ Fat Emulsion Intravenous 1,400 ml @ 58.333 mls/ hr TPN CONT 07/28/19 22:00 07/29/19 21:59 DC 07/28/19 22:08 Sodium Chloride 100 meq/Potassium Chloride 40 meq/ Magnesium Sulfate 15 meq/Calcium Gluconate 15 meq/ Multivitamins 10 ml/Chromium/ Copper/Manganese/ Seleni/Zn 0.5 ml/ Insulin Human Regular 35 unit/ Total Parenteral Nutrition/Amino Acids/Dextrose/ Fat Emulsion Intravenous 1,400 ml @ 58.333 mls/ hr TPN CONT 08/07/19 22:00 08/08/19 21:59 DC 08/07/19 22:46 Sodium Chloride 100 meq/Potassium Chloride 40 meq/ Magnesium Sulfate 20 meq/Calcium Gluconate 10 meq/ Multivitamins 10 ml/Chromium/ Copper/Manganese/ Seleni/Zn 0.5 ml/ Insulin Human Regular 35 unit/ Total Parenteral Nutrition/Amino Acids/Dextrose/ Fat Emulsion Intravenous 1,400 ml @ 58.333 mls/ hr TPN CONT 08/11/19 22:00 08/12/19 21:59 DC 08/12/19 00:06 Sodium Chloride 100 meq/Potassium Chloride 40 meq/ Magnesium Sulfate 20 meq/Calcium Gluconate 15 meq/ Multivitamins 10 ml/Chromium/ Copper/Manganese/ Seleni/Zn 0.5 ml/ Insulin Human Regular 35 unit/ Total Parenteral Nutrition/Amino Acids/Dextrose/ Fat Emulsion Intravenous 1,400 ml @ 58.333 mls/ hr TPN CONT 08/10/19 22:00 08/11/19 21:59 DC 08/10/19 22:27 Sodium Chloride 100 meq/Potassium Phosphate 10 mmol/ Magnesium Sulfate 12 meq/Calcium Gluconate 15 meq/ Multivitamins 10 ml/Chromium/ Copper/Manganese/ Seleni/Zn 0.5 ml/ Insulin Human Regular 35 unit/ Potassium Chloride 20 meq/ Total Parenteral Nutrition/Amino Acids/Dextrose/ Fat Emulsion Intravenous 1,400 ml @ 58.333 mls/ hr TPN CONT 08/04/19 22:00 08/05/19 21:59 DC 08/04/19 22:10 Sodium Chloride 100 meq/Potassium Phosphate 19 mmol/ Magnesium Sulfate 12 meq/Calcium Gluconate 15 meq/ Multivitamins 10 ml/Chromium/ Copper/Manganese/ Seleni/Zn 0.5 ml/ Insulin Human Regular 40 unit/ Potassium Chloride 20 meq/ Total Parenteral Nutrition/Amino Acids/Dextrose/ Fat Emulsion Intravenous 1,400 ml @ 58.333 mls/ hr TPN CONT 08/03/19 22:00 08/04/19 21:59 DC 08/03/19 21:20 Sodium Chloride 100 meq/Potassium Phosphate 5 mmol/ Magnesium Sulfate 12 meq/Calcium Gluconate 15 meq/ Multivitamins 10 ml/Chromium/ Copper/Manganese/ Seleni/Zn 0.5 ml/ Insulin Human Regular 35 unit/ Potassium Chloride 20 meq/ Total Parenteral Nutrition/Amino Acids/Dextrose/ Fat Emulsion Intravenous 1,400 ml @ 58.333 mls/ hr TPN CONT 08/05/19 22:00 08/06/19 21:59 DC 08/05/19 22:59 Succinylcholine Chloride (Anectine) 120 mg 1X ONCE 07/11/19 08:30 07/11/19 08:31 DC 07/11/19 08:34 Vecuronium [place] (Norcuron Bolus) 6 mg PRN Q6HRS PRN 08/25/19 19:15 08/25/19 19:35 DC Labs: Lab Laboratory Tests Test 09/25/19 08:08 09/25/19 11:30 09/25/19 13:20 09/25/19 18:05 Hemoglobin 8.3 g/dL (12.0-15.5) 9.6 g/dL (12.0-15.5) Hematocrit 26.0 % (36.0-47.0) 28.9 % (36.0-47.0) Mean Corpuscular Hemoglobin Concent 32 g/dL (31-37) 33 g/dL (31-37) Urine Collection Type Unknown Urine Color Yellow Urine Clarity Cloudy Urine pH 5.0 (<5.0-8.0) Urine Specific [place] 1.020 (1.000-1.030) Urine Protein 30 mg/dL (NEG-TRACE) Urine Glucose (UA) Negative mg/dL (NEG) Urine Ketones (Stick) Negative mg/dL (NEG) Urine Blood Negative (NEG) Urine Nitrite Negative (NEG) Urine Bilirubin Negative (NEG) Urine Urobilinogen Dipstick 0.2 mg/dL (0.2 mg/dL) Urine Leukocyte Esterase Small (NEG) Urine RBC 0 /HPF (0-2) Urine WBC 11-20 /HPF (0-4) Urine Squamous Epithelial Cells Mod /LPF Urine Transitional Epithelial Cells Mod /LPF Urine Amorphous Sediment Present /HPF Urine Bacteria Few /HPF (0-FEW) Urine Hyaline Casts Many /HPF Urine Granular Casts Many /HPF Urine Mucus Marked /LPF Urine Yeast Present /HPF White Blood Count 20.9 x10^3/uL (4.0-11.0) Red Blood Count 3.23 x10^6/uL (3.50-5.40) Mean Corpuscular Volume 89 fL (79-100) Mean Corpuscular Hemoglobin 30 pg (25-35) Red Cell Distribution Width 17.0 % (11.5-14.5) Platelet Count 433 x10^3/uL (140-400) O2 Saturation 95 % (92-99) Arterial Blood pH 7.25 (7.35-7.45) Arterial Blood pCO2 at Patient Temp 48 mmHg (35-46) Arterial Blood pO2 at Patient Temp 92 mmHg (75-108) Arterial Blood HCO3 21 mmol/L (21-28) Arterial Blood Base Excess -6 mmol/L (-3-3) FiO2 50 Test 09/25/19 18:30 09/25/19 18:37 09/25/19 20:45 09/26/19 00:30 White Blood Count 21.2 x10^3/uL (4.0-11.0) 19.8 x10^3/uL (4.0-11.0) Red Blood Count 2.51 x10^6/uL (3.50-5.40) 3.14 x10^6/uL (3.50-5.40) Hemoglobin 7.4 g/dL (12.0-15.5) 9.4 g/dL (12.0-15.5) Hematocrit 22.6 % (36.0-47.0) 28.0 % (36.0-47.0) Mean Corpuscular Volume 90 fL (79-100) 89 fL (79-100) Mean Corpuscular Hemoglobin 30 pg (25-35) 30 pg (25-35) Mean Corpuscular Hemoglobin Concent 33 g/dL (31-37) 34 g/dL (31-37) Red Cell Distribution Width 17.3 % (11.5-14.5) 16.8 % (11.5-14.5) Platelet Count 310 x10^3/uL (140-400) 325 x10^3/uL (140-400) Glucose (Fingerstick) 234 mg/dL (70-99) O2 Saturation 97 % (92-99) Arterial Blood pH 7.27 (7.35-7.45) Arterial Blood pCO2 at Patient Temp 44 mmHg (35-46) Arterial Blood pO2 at Patient Temp 108 mmHg (75-108) Arterial Blood HCO3 20 mmol/L (21-28) Arterial Blood Base Excess -7 mmol/L (-3-3) FiO2 40 Test 09/26/19 00:45 09/26/19 06:50 09/26/19 06:59 Glucose (Fingerstick) 320 mg/dL (70-99) 149 mg/dL (70-99) White Blood Count 13.8 x10^3/uL (4.0-11.0) Red Blood Count 3.03 x10^6/uL (3.50-5.40) Hemoglobin 8.8 g/dL (12.0-15.5) Hematocrit 26.9 % (36.0-47.0) Mean Corpuscular Volume 89 fL (79-100) Mean Corpuscular Hemoglobin 29 pg (25-35) Mean Corpuscular Hemoglobin Concent 33 g/dL (31-37) Red Cell Distribution Width 17.2 % (11.5-14.5) Platelet Count 311 x10^3/uL (140-400) Neutrophils (%) (Auto) 88 % (31-73) Lymphocytes (%) (Auto) 7 % (24-48) Monocytes (%) (Auto) 4 % (0-9) Eosinophils (%) (Auto) 1 % (0-3) Basophils (%) (Auto) 0 % (0-3) Neutrophils # (Auto) 12.1 x10^3/uL (1.8-7.7) Lymphocytes # (Auto) 0.9 x10^3/uL (1.0-4.8) Monocytes # (Auto) 0.6 x10^3/uL (0.0-1.1) Eosinophils # (Auto) 0.1 x10^3/uL (0.0-0.7) Basophils # (Auto) 0.0 x10^3/uL (0.0-0.2) Sodium Level 151 mmol/L (136-145) Potassium Level 4.1 mmol/L (3.5-5.1) Chloride Level 118 mmol/L (98-107) Carbon Dioxide Level 25 mmol/L (21-32) Anion Gap 8 (6-14) Blood Urea Nitrogen 58 mg/dL (7-20) Creatinine 1.3 mg/dL (0.6-1.0) Estimated GFR (Cockcroft-Gault) 43.5 BUN/Creatinine Ratio 45 (6-20) Glucose Level 165 mg/dL (70-99) Calcium Level 9.9 mg/dL (8.5-10.1) Total Bilirubin 0.5 mg/dL (0.2-1.0) Aspartate Amino Transf (AST/SGOT) 15 U/L (15-37) Alanine Aminotransferase (ALT/SGPT) 12 U/L (14-59) Alkaline Phosphatase 95 U/L (46-116) Total Protein 5.3 g/dL (6.4-8.2) Albumin 1.5 g/dL (3.4-5.0) Albumin/Globulin Ratio 0.4 (1.0-1.7) Objective: Assessment: Fever intermittent could be from underlying pancreatitis vs aspiration pneumonia Acute pancreatitis with persistent necrosis CT a/p 07/27 Increased ascites. 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 Sequela of pancreatitis with extensive pseudocysts again demonstrated, the right-sided collections are slightly larger since the prior exam, the left-sided collections are stable. Cholelithiasis with thickening of the gallbladder wall. Leucocytosis JUANA,Hyperkalemia, Metabolic acidosis off dialysis Acute hypoxic resp failure ,bilateral pleural effusion and atelectasis hypocalcemia Prediabetes HTN s/p trach Plan: Plan of Care Continue meropenem, dose adjusted for renal function cont micafungin /dapto ( 09/24) Follow-up cultures and lab General surgery following Monitor drain output Maintain aspiration precaution Supportive care Prognosis poor Critically ill D/w nursing YUNIOR JONES MD Sep 26, 2019 07:48
--- NOTE | 2019-09-26 08:15 | RAD ---
Note: This report was dictated by Dr. Nobles for Dr. Villalobos who was the operating physician CT-guided drain placement, 3 separate intra-abdominal fluid collections Indication: Clinical Indication: History of severe pancreatitis with multifocal intraperitoneal fluid collections. Patient presents with signs and symptoms of sepsis. Emergent drainage requested. Discussion: The procedure was explained in its entirety to the patient or the patients designated chemical sales representative by a member of the treatment team, including a discussion of the risks, benefits and commonly accepted alternatives to the procedure, as well as the expected consequences of no therapy whatsoever. Discussion of the risks included, but was not limited to, those that are most frequent and those that are rare but possibly severe or life-threatening, as well as the possibility of unforeseen complications. All elements of maximal sterile barrier technique including the use of a cap, mask, sterile gown, sterile gloves, large sterile sheet, appropriate hand hygiene, and 2% chlorhexidine for cutaneous antisepsis (or acceptable alternative antiseptic per current guidelines) were followed for this procedure. CT imaging was performed redemonstrating multiple intraperitoneal fluid collections including, larger fluid collections in the right and left abdomen, as well as a peripancreatic fluid collection. The abdomen was prepped and draped as described. 1% lidocaine was administered to the skin and subcutaneous tissues overlying the fluid collections. Under intermittent CT guidance, needles were advanced into these collections. Guidewires were advanced into the collections, over which, following dilatation 14 Salv[place]orean drainage catheters were placed. Approximately 100 cc was aspirated from the right lower quadrant collection. Approximately 250 cc was aspirated from the left upper quadrant collection. Approximately 25 cc was aspirated from the peripancreatic collection. Aspirates were relatively serosanguineous however some residual, thick or multiloculated fluid appears to be present on subsequent CT imaging. Catheters were secured in place and sterile dressings were applied. No immediate complications were identified. The procedure was performed under conscious sedation including continuous cardiopulmonary monitoring via dedicated sedation nurse. [id number] sedation time: 130 minutes. IMPRESSION: CT-guided intra-abdominal drainage catheter placement x3 for multi focal intraabdominal fluid collections, concerning for abscesses. PQRS Compliance Statement: One or more of the following individualized dose reduction techniques were utilized for this examination: 1. Automated exposure control 2. Adjustment of the mA and/or kV according to patient size 3. Use of iterative reconstruction technique fluoroscopy time: min Dose area product: [id number] Note: This report was dictated by Dr. Nobles for Dr. Villalobos who was the operating physician
[2019-09-26 08:24] LABS: BASE EXCESS ABG -5 mmol/L (-3-3); HCO3 ABG 21 mmol/L (21-28); PCO2 ABG 40 mmHg (35-46); PO2 ABG 126 mmHg (75-108); SAT O2 ABG 98 % (92-99)
[2019-09-26 08:39] LABS: FIO2 ABG 40% BIPAP
--- NOTE | 2019-09-26 08:51 | RAD ---
EXAM: Chest, single view. HISTORY: Aspiration. COMPARISON: 09/24/2019 FINDINGS: There has been slight interval increase in diffuse left lung infiltrate superimposed on a stable small left pleural effusion. There is a stable suspected tiny right pleural effusion and mild right central predominant interstitial prominence. The heart is normal in size. There is a tracheostomy device in expected position. There is a nasogastric tube within the stomach. There is a left PICC with the tip in the superior cavoatrial junction. No pneumothorax is seen. IMPRESSION: 1. Suspected slight interval increase in diffuse left lung infiltrate. 2. Stable small left greater than right pleural effusions and central right interstitial prominence. 3. Stable support lines and tubes. Electronically signed by: Sherlyn Martinez MD (09/26/2019 8:47 AM) [id number]
--- NOTE | 2019-09-26 09:01 | PDOC ---
PROGRESS NOTES Assessment Problems Medical Problems: (1) Acute pancreatitis Status: Acute (2) Cholelithiasis Status: Acute Single seizure on 06/23, no recurrence. Metabolic encephalopathy. Fevers. Metabolic acidosis. Diffuse pulmonary infiltrate. Pleural effusion. Pancreatitis, necrotizing. Gallstone. Leukocytosis. Lymphopenia. Electrolytes imbalances. Hyperglycemia. DM. HTN. HLD. Anemia. Abnormal CXR. Obesity. Ascites and pleural effusion Ileus with vomiting Anemia JUANA Hyperkalemia Metabolic acidosis Hypertension S/P trache Anemia S/P IR drain placement, 09/24 Hypotension, intermittently requiring Levophed Plan Keppra if she has further seizures. Treat medical diseases. Subjective Indicates no pain Objective Vital Signs Date Time Temp Pulse Resp B/P (MAP) Pulse Ox O2 Delivery O2 Flow Rate FiO2 09/26/19 08:40 AVAPS ON V60 09/26/19 08:00 97.7 99 18 104/56 (72) 100 97.7 09/25/19 17:36 15.0 Intake and Output 09/26/19 07:00 Intake Total 59557 ml Output Total 2270 ml Balance 8491 ml Intake Oral 0 ml IV Total 9666 ml Blood Product IV Normal Saline Flush 1095 ml Output Urine Total 1405 ml Emesis 150 ml Drainage Total 715 ml PHYSICAL EXAM Alert, follows commands. Tracheostomy shield. Back on vent PERRL. EOMI. CN: no focal findings. Muscle tone: normal. Muscle strength: 3-4/5 DTR: 1+ Plantar reflex: Silent Gait: not examined in bed. Sensory exam: normal Cerebellar: normal Review of Relevant I have reviewed the following items kolby (where applicable) has been applied. Labs Laboratory Tests Test 09/24/19 13:06 09/24/19 13:53 09/24/19 16:30 09/24/19 18:12 White Blood Count 16.9 x10^3/uL (4.0-11.0) Red Blood Count 2.48 x10^6/uL (3.50-5.40) Hemoglobin 7.2 g/dL (12.0-15.5) Hematocrit 22.1 % (36.0-47.0) Mean Corpuscular Volume 89 fL (79-100) Mean Corpuscular Hemoglobin 29 pg (25-35) Mean Corpuscular Hemoglobin Concent 33 g/dL (31-37) Red Cell Distribution Width 19.5 % (11.5-14.5) Platelet Count 448 x10^3/uL (140-400) Glucose (Fingerstick) 216 mg/dL (70-99) 199 mg/dL (70-99) O2 Saturation 82 % (92-99) Arterial Blood pH 7.36 (7.35-7.45) Arterial Blood pCO2 at Patient Temp 39 mmHg (35-46) Arterial Blood pO2 at Patient Temp 53 mmHg (75-108) Arterial Blood HCO3 22 mmol/L (21-28) Arterial Blood Base Excess -4 mmol/L (-3-3) FiO2 21 Test 09/24/19 18:24 09/25/19 00:27 09/25/19 05:15 09/25/19 06:50 White Blood Count 18.7 x10^3/uL (4.0-11.0) 20.0 x10^3/uL (4.0-11.0) Red Blood Count 3.07 x10^6/uL (3.50-5.40) 3.06 x10^6/uL (3.50-5.40) Hemoglobin 9.1 g/dL (12.0-15.5) 8.7 g/dL (12.0-15.5) Hematocrit 27.2 % (36.0-47.0) 27.3 % (36.0-47.0) Mean Corpuscular Volume 89 fL (79-100) 89 fL (79-100) Mean Corpuscular Hemoglobin 30 pg (25-35) 29 pg (25-35) Mean Corpuscular Hemoglobin Concent 33 g/dL (31-37) 32 g/dL (31-37) Red Cell Distribution Width 18.0 % (11.5-14.5) 18.5 % (11.5-14.5) Platelet Count 476 x10^3/uL (140-400) 451 x10^3/uL (140-400) Glucose (Fingerstick) 247 mg/dL (70-99) Neutrophils (%) (Auto) 88 % (31-73) Lymphocytes (%) (Auto) 8 % (24-48) Monocytes (%) (Auto) 3 % (0-9) Eosinophils (%) (Auto) 0 % (0-3) Basophils (%) (Auto) 0 % (0-3) Neutrophils # (Auto) 17.6 x10^3/uL (1.8-7.7) Lymphocytes # (Auto) 1.7 x10^3/uL (1.0-4.8) Monocytes # (Auto) 0.6 x10^3/uL (0.0-1.1) Eosinophils # (Auto) 0.0 x10^3/uL (0.0-0.7) Basophils # (Auto) 0.0 x10^3/uL (0.0-0.2) Sodium Level 147 mmol/L (136-145) Potassium Level 5.3 mmol/L (3.5-5.1) Chloride Level 113 mmol/L (98-107) Carbon Dioxide Level 25 mmol/L (21-32) Anion Gap 9 (6-14) Blood Urea Nitrogen 74 mg/dL (7-20) Creatinine 1.9 mg/dL (0.6-1.0) Estimated GFR (Cockcroft-Gault) 28.1 BUN/Creatinine Ratio 39 (6-20) Glucose Level 241 mg/dL (70-99) Calcium Level 10.8 mg/dL (8.5-10.1) Total Bilirubin 0.6 mg/dL (0.2-1.0) Aspartate Amino Transf (AST/SGOT) 27 U/L (15-37) Alanine Aminotransferase (ALT/SGPT) 20 U/L (14-59) Alkaline Phosphatase 104 U/L (46-116) Total Protein 6.3 g/dL (6.4-8.2) Albumin 1.8 g/dL (3.4-5.0) Albumin/Globulin Ratio 0.4 (1.0-1.7) Prothrombin Time 16.0 SEC (11.7-14.0) Prothromb Time International Ratio 1.3 (0.8-1.1) Activated Partial Thromboplast Time 32 SEC (24-38) Lactic Acid Level 1.7 mmol/L (0.4-2.0) Test 09/25/19 08:08 09/25/19 11:30 09/25/19 13:20 09/25/19 18:05 Hemoglobin 8.3 g/dL (12.0-15.5) 9.6 g/dL (12.0-15.5) Hematocrit 26.0 % (36.0-47.0) 28.9 % (36.0-47.0) Mean Corpuscular Hemoglobin Concent 32 g/dL (31-37) 33 g/dL (31-37) Urine Collection Type Unknown Urine Color Yellow Urine Clarity Cloudy Urine pH 5.0 (<5.0-8.0) Urine Specific [place] 1.020 (1.000-1.030) Urine Protein 30 mg/dL (NEG-TRACE) Urine Glucose (UA) Negative mg/dL (NEG) Urine Ketones (Stick) Negative mg/dL (NEG) Urine Blood Negative (NEG) Urine Nitrite Negative (NEG) Urine Bilirubin Negative (NEG) Urine Urobilinogen Dipstick 0.2 mg/dL (0.2 mg/dL) Urine Leukocyte Esterase Small (NEG) Urine RBC 0 /HPF (0-2) Urine WBC 11-20 /HPF (0-4) Urine Squamous Epithelial Cells Mod /LPF Urine Transitional Epithelial Cells Mod /LPF Urine Amorphous Sediment Present /HPF Urine Bacteria Few /HPF (0-FEW) Urine Hyaline Casts Many /HPF Urine Granular Casts Many /HPF Urine Mucus Marked /LPF Urine Yeast Present /HPF White Blood Count 20.9 x10^3/uL (4.0-11.0) Red Blood Count 3.23 x10^6/uL (3.50-5.40) Mean Corpuscular Volume 89 fL (79-100) Mean Corpuscular Hemoglobin 30 pg (25-35) Red Cell Distribution Width 17.0 % (11.5-14.5) Platelet Count 433 x10^3/uL (140-400) O2 Saturation 95 % (92-99) Arterial Blood pH 7.25 (7.35-7.45) Arterial Blood pCO2 at Patient Temp 48 mmHg (35-46) Arterial Blood pO2 at Patient Temp 92 mmHg (75-108) Arterial Blood HCO3 21 mmol/L (21-28) Arterial Blood Base Excess -6 mmol/L (-3-3) FiO2 50 Test 09/25/19 18:30 09/25/19 18:37 09/25/19 20:45 09/26/19 00:30 White Blood Count 21.2 x10^3/uL (4.0-11.0) 19.8 x10^3/uL (4.0-11.0) Red Blood Count 2.51 x10^6/uL (3.50-5.40) 3.14 x10^6/uL (3.50-5.40) Hemoglobin 7.4 g/dL (12.0-15.5) 9.4 g/dL (12.0-15.5) Hematocrit 22.6 % (36.0-47.0) 28.0 % (36.0-47.0) Mean Corpuscular Volume 90 fL (79-100) 89 fL (79-100) Mean Corpuscular Hemoglobin 30 pg (25-35) 30 pg (25-35) Mean Corpuscular Hemoglobin Concent 33 g/dL (31-37) 34 g/dL (31-37) Red Cell Distribution Width 17.3 % (11.5-14.5) 16.8 % (11.5-14.5) Platelet Count 310 x10^3/uL (140-400) 325 x10^3/uL (140-400) Glucose (Fingerstick) 234 mg/dL (70-99) O2 Saturation 97 % (92-99) Arterial Blood pH 7.27 (7.35-7.45) Arterial Blood pCO2 at Patient Temp 44 mmHg (35-46) Arterial Blood pO2 at Patient Temp 108 mmHg (75-108) Arterial Blood HCO3 20 mmol/L (21-28) Arterial Blood Base Excess -7 mmol/L (-3-3) FiO2 40 Test 09/26/19 00:45 09/26/19 06:50 09/26/19 06:59 09/26/19 08:15 Glucose (Fingerstick) 320 mg/dL (70-99) 149 mg/dL (70-99) White Blood Count 13.8 x10^3/uL (4.0-11.0) Red Blood Count 3.03 x10^6/uL (3.50-5.40) Hemoglobin 8.8 g/dL (12.0-15.5) Hematocrit 26.9 % (36.0-47.0) Mean Corpuscular Volume 89 fL (79-100) Mean Corpuscular Hemoglobin 29 pg (25-35) Mean Corpuscular Hemoglobin Concent 33 g/dL (31-37) Red Cell Distribution Width 17.2 % (11.5-14.5) Platelet Count 311 x10^3/uL (140-400) Neutrophils (%) (Auto) 88 % (31-73) Lymphocytes (%) (Auto) 7 % (24-48) Monocytes (%) (Auto) 4 % (0-9) Eosinophils (%) (Auto) 1 % (0-3) Basophils (%) (Auto) 0 % (0-3) Neutrophils # (Auto) 12.1 x10^3/uL (1.8-7.7) Lymphocytes # (Auto) 0.9 x10^3/uL (1.0-4.8) Monocytes # (Auto) 0.6 x10^3/uL (0.0-1.1) Eosinophils # (Auto) 0.1 x10^3/uL (0.0-0.7) Basophils # (Auto) 0.0 x10^3/uL (0.0-0.2) Sodium Level 151 mmol/L (136-145) Potassium Level 4.1 mmol/L (3.5-5.1) Chloride Level 118 mmol/L (98-107) Carbon Dioxide Level 25 mmol/L (21-32) Anion Gap 8 (6-14) Blood Urea Nitrogen 58 mg/dL (7-20) Creatinine 1.3 mg/dL (0.6-1.0) Estimated GFR (Cockcroft-Gault) 43.5 BUN/Creatinine Ratio 45 (6-20) Glucose Level 165 mg/dL (70-99) Calcium Level 9.9 mg/dL (8.5-10.1) Total Bilirubin 0.5 mg/dL (0.2-1.0) Aspartate Amino Transf (AST/SGOT) 15 U/L (15-37) Alanine Aminotransferase (ALT/SGPT) 12 U/L (14-59) Alkaline Phosphatase 95 U/L (46-116) Total Protein 5.3 g/dL (6.4-8.2) Albumin 1.5 g/dL (3.4-5.0) Albumin/Globulin Ratio 0.4 (1.0-1.7) O2 Saturation 98 % (92-99) Arterial Blood pH 7.34 (7.35-7.45) Arterial Blood pCO2 at Patient Temp 40 mmHg (35-46) Arterial Blood pO2 at Patient Temp 126 mmHg (75-108) Arterial Blood HCO3 21 mmol/L (21-28) Arterial Blood Base Excess -5 mmol/L (-3-3) FiO2 40% bipap Laboratory Tests Test 09/25/19 11:30 09/25/19 13:20 09/25/19 18:05 09/25/19 18:30 Urine Collection Type Unknown Urine Color Yellow Urine Clarity Cloudy Urine pH 5.0 (<5.0-8.0) Urine Specific [place] 1.020 (1.000-1.030) Urine Protein 30 mg/dL (NEG-TRACE) Urine Glucose (UA) Negative mg/dL (NEG) Urine Ketones (Stick) Negative mg/dL (NEG) Urine Blood Negative (NEG) Urine Nitrite Negative (NEG) Urine Bilirubin Negative (NEG) Urine Urobilinogen Dipstick 0.2 mg/dL (0.2 mg/dL) Urine Leukocyte Esterase Small (NEG) Urine RBC 0 /HPF (0-2) Urine WBC 11-20 /HPF (0-4) Urine Squamous Epithelial Cells Mod /LPF Urine Transitional Epithelial Cells Mod /LPF Urine Amorphous Sediment Present /HPF Urine Bacteria Few /HPF (0-FEW) Urine Hyaline Casts Many /HPF Urine Granular Casts Many /HPF Urine Mucus Marked /LPF Urine Yeast Present /HPF White Blood Count 20.9 x10^3/uL (4.0-11.0) 21.2 x10^3/uL (4.0-11.0) Red Blood Count 3.23 x10^6/uL (3.50-5.40) 2.51 x10^6/uL (3.50-5.40) Hemoglobin 9.6 g/dL (12.0-15.5) 7.4 g/dL (12.0-15.5) Hematocrit 28.9 % (36.0-47.0) 22.6 % (36.0-47.0) Mean Corpuscular Volume 89 fL (79-100) 90 fL (79-100) Mean Corpuscular Hemoglobin 30 pg (25-35) 30 pg (25-35) Mean Corpuscular Hemoglobin Concent 33 g/dL (31-37) 33 g/dL (31-37) Red Cell Distribution Width 17.0 % (11.5-14.5) 17.3 % (11.5-14.5) Platelet Count 433 x10^3/uL (140-400) 310 x10^3/uL (140-400) O2 Saturation 95 % (92-99) Arterial Blood pH 7.25 (7.35-7.45) Arterial Blood pCO2 at Patient Temp 48 mmHg (35-46) Arterial Blood pO2 at Patient Temp 92 mmHg (75-108) Arterial Blood HCO3 21 mmol/L (21-28) Arterial Blood Base Excess -6 mmol/L (-3-3) FiO2 50 Test 09/25/19 18:37 09/25/19 20:45 09/26/19 00:30 09/26/19 00:45 Glucose (Fingerstick) 234 mg/dL (70-99) 320 mg/dL (70-99) O2 Saturation 97 % (92-99) Arterial Blood pH 7.27 (7.35-7.45) Arterial Blood pCO2 at Patient Temp 44 mmHg (35-46) Arterial Blood pO2 at Patient Temp 108 mmHg (75-108) Arterial Blood HCO3 20 mmol/L (21-28) Arterial Blood Base Excess -7 mmol/L (-3-3) FiO2 40 White Blood Count 19.8 x10^3/uL (4.0-11.0) Red Blood Count 3.14 x10^6/uL (3.50-5.40) Hemoglobin 9.4 g/dL (12.0-15.5) Hematocrit 28.0 % (36.0-47.0) Mean Corpuscular Volume 89 fL (79-100) Mean Corpuscular Hemoglobin 30 pg (25-35) Mean Corpuscular Hemoglobin Concent 34 g/dL (31-37) Red Cell Distribution Width 16.8 % (11.5-14.5) Platelet Count 325 x10^3/uL (140-400) Test 09/26/19 06:50 09/26/19 06:59 09/26/19 08:15 White Blood Count 13.8 x10^3/uL (4.0-11.0) Red Blood Count 3.03 x10^6/uL (3.50-5.40) Hemoglobin 8.8 g/dL (12.0-15.5) Hematocrit 26.9 % (36.0-47.0) Mean Corpuscular Volume 89 fL (79-100) Mean Corpuscular Hemoglobin 29 pg (25-35) Mean Corpuscular Hemoglobin Concent 33 g/dL (31-37) Red Cell Distribution Width 17.2 % (11.5-14.5) Platelet Count 311 x10^3/uL (140-400) Neutrophils (%) (Auto) 88 % (31-73) Lymphocytes (%) (Auto) 7 % (24-48) Monocytes (%) (Auto) 4 % (0-9) Eosinophils (%) (Auto) 1 % (0-3) Basophils (%) (Auto) 0 % (0-3) Neutrophils # (Auto) 12.1 x10^3/uL (1.8-7.7) Lymphocytes # (Auto) 0.9 x10^3/uL (1.0-4.8) Monocytes # (Auto) 0.6 x10^3/uL (0.0-1.1) Eosinophils # (Auto) 0.1 x10^3/uL (0.0-0.7) Basophils # (Auto) 0.0 x10^3/uL (0.0-0.2) Sodium Level 151 mmol/L (136-145) Potassium Level 4.1 mmol/L (3.5-5.1) Chloride Level 118 mmol/L (98-107) Carbon Dioxide Level 25 mmol/L (21-32) Anion Gap 8 (6-14) Blood Urea Nitrogen 58 mg/dL (7-20) Creatinine 1.3 mg/dL (0.6-1.0) Estimated GFR (Cockcroft-Gault) 43.5 BUN/Creatinine Ratio 45 (6-20) Glucose Level 165 mg/dL (70-99) Calcium Level 9.9 mg/dL (8.5-10.1) Total Bilirubin 0.5 mg/dL (0.2-1.0) Aspartate Amino Transf (AST/SGOT) 15 U/L (15-37) Alanine Aminotransferase (ALT/SGPT) 12 U/L (14-59) Alkaline Phosphatase 95 U/L (46-116) Total Protein 5.3 g/dL (6.4-8.2) Albumin 1.5 g/dL (3.4-5.0) Albumin/Globulin Ratio 0.4 (1.0-1.7) Glucose (Fingerstick) 149 mg/dL (70-99) O2 Saturation 98 % (92-99) Arterial Blood pH 7.34 (7.35-7.45) Arterial Blood pCO2 at Patient Temp 40 mmHg (35-46) Arterial Blood pO2 at Patient Temp 126 mmHg (75-108) Arterial Blood HCO3 21 mmol/L (21-28) Arterial Blood Base Excess -5 mmol/L (-3-3) FiO2 40% bipap Microbiology 09/17/19 Gram Stain - Final, Complete 09/17/19 Aerobic Culture - Final, Complete 09/04/19 Blood Culture - Final, Complete NO GROWTH AFTER 5 DAYS 08/24/19 Fungal Culture - Final, Complete 08/24/19 Fungal Culture Result 1 - Final, Complete 07/31/19 Urine Culture - Final, Complete 07/31/19 Urine Culture Result 1 (ALEXANDRA) - Final, Complete Medications Current Medications Sodium Chloride 1,000 ml @ 1,000 mls/hr Q1H IV Last administered on 07/04/19at 03:00; Start 07/04/19 at 03:00; Stop 07/04/19 at 03:59; Status DC Ondansetron HCl (Zofran) 4 mg 1X ONCE IVP Last administered on 07/04/19at 03:27; Start 07/04/19 at 03:00; Stop 07/04/19 at 03:01; Status DC Morphine Sulfate (Morphine Sulfate) 4 mg 1X ONCE IV ; Start 07/04/19 at 03:00; Stop 07/04/19 at 03:01; Status Cancel Ketorolac Tromethamine (Toradol 30mg Vial) 30 mg 1X ONCE IV Last administered on 07/04/19at 02:54; Start 07/04/19 at 03:00; Stop 07/04/19 at 03:01; Status DC Fentanyl Citrate (Fentanyl 2ml Vial) 25 mcg 1X ONCE IVP Last administered on 07/04/19at 03:23; Start 07/04/19 at 03:30; Stop 07/04/19 at 03:31; Status DC Fentanyl Citrate (Fentanyl 2ml Vial) 100 mcg STK-MED ONCE .ROUTE ; Start 07/04/19 at 03:18; Stop 07/04/19 at 03:18; Status DC Iohexol (Omnipaque 350 Mg/ml) 90 ml 1X ONCE IV Last administered on 07/04/19at 03:25; Start 07/04/19 at 03:30; Stop 07/04/19 at 03:31; Status DC Info (CONTRAST GIVEN -- Rx MONITORING) 1 each PRN DAILY PRN MC SEE COMMENTS; Start 07/04/19 at 03:30; Stop 07/06/19 at 03:29; Status DC Hydromorphone HCl (Dilaudid) 0.5 mg 1X ONCE IV Last administered on 07/04/19at 03:55; Start 07/04/19 at 04:30; Stop 07/04/19 at 04:32; Status DC Ondansetron HCl (Zofran) 4 mg PRN Q8HRS PRN IV NAUSEA/VOMITING 1ST CHOICE; Start 07/04/19 at 05:00; Stop 07/04/19 at 09:27; Status DC Morphine Sulfate (Morphine Sulfate) 2 mg PRN Q2HR PRN IV SEVERE PAIN 7-10 Last administered on 07/05/19at 12:26; Start 07/04/19 at 05:00; Stop 07/05/19 at 14:15; Status DC Sodium Chloride 1,000 ml @ 125 mls/hr Q8H IV Last administered on 07/04/19at 20:56; Start 07/04/19 at 05:00; Stop 07/05/19 at 04:59; Status DC Hydromorphone HCl (Dilaudid) 0.5 mg PRN Q3HRS PRN IV SEVERE PAIN 7-10 Last administered on 07/05/19at 10:06; Start 07/04/19 at 05:00; Stop 07/05/19 at 12:01; Status DC Piperacillin Sod/ Tazobactam Sod 4.5 gm/Sodium Chloride 100 ml @ 200 mls/hr 1X ONCE IV Last administered on 07/04/19at 05:44; Start 07/04/19 at 06:00; Stop at 06:29; Status DC Ondansetron HCl (Zofran) 4 mg PRN Q4HRS PRN IV NAUSEA/VOMITING 1ST CHOICE Last administered on 09/25/19at 05:18; Start 07/04/19 at 09:30 Insulin Human Lispro (HumaLOG) 0-9 UNITS Q6HRS SQ Last administered on 09/26/19at 00:50; Start 07/04/19 at 09:30 Dextrose (Dextrose 50%-Water Syringe) 12.5 gm PRN Q15MIN PRN IV SEE COMMENTS; Start 07/04/19 at 09:30 Pantoprazole Sodium (PROTONIX VIAL for IV PUSH) 40 mg DAILYAC IVP Last administered on 09/26/19at 07:46; Start 07/04/19 at 11:30 Prochlorperazine Edisylate (Compazine) 10 mg PRN Q6HRS PRN IV NAUSEA/VOMITING, 2nd CHOICE Last administered on 09/25/19at 11:00; Start 07/04/19 at 17:45 Atenolol (Tenormin) 100 mg DAILY PO ; Start 07/05/19 at 09:00; Stop 07/04/19 at 20:08; Status DC Metoprolol Tartrate (Lopressor Vial) 2.5 mg Q6HRS IVP Last administered on 07/05/19at 05:51; Start 07/04/19 at 20:15; Stop 07/05/19 at 10:02; Status DC Metoprolol Tartrate (Lopressor Vial) 5 mg Q6HRS IVP Last administered on 07/14/19at 00:12; Start 07/05/19 at 10:15; Stop 07/16/19 at 08:48; Status DC Hydromorphone HCl (Dilaudid) 1 mg PRN Q3HRS PRN IV SEVERE PAIN 7-10 Last administered on 07/11/19at 05:13; Start 07/05/19 at 12:00; Stop 07/19/19 at 00:25; Status DC Lidocaine HCl (Buffered Lidocaine 1%) 3 ml STK-MED ONCE .ROUTE ; Start 07/05/19 at 12:55; Stop 07/05/19 at 12:56; Status DC Albumin Human 500 ml @ 125 mls/hr 1X ONCE IV Last administered on 07/05/19at 14:33; Start 07/05/19 at 14:30; Stop 07/05/19 at 18:32; Status DC Norepinephrine Bitartrate 8 mg/ Dextrose 258 ml @ 17.299 mls/ hr CONT PRN IV PER PROTOCOL Last administered on 08/02/19at 12:48; Start 07/05/19 at 15:30; Stop 08/05/19 at 09:19; Status DC Sodium Chloride 1,000 ml @ 125 mls/hr Q8H IV Last administered on 07/05/19at 21:04; Start 07/05/19 at 16:00; Stop 07/06/19 at 02:42; Status DC Albumin Human 500 ml @ 125 mls/hr PRN BID PRN IV After every 2L NSS & BP < 90mm Last administered on 09/24/19at 11:40; Start 07/05/19 at 16:00 Iohexol (Omnipaque 300 Mg/ml) 60 ml 1X ONCE IV Last administered on 07/05/19at 17:20; Start 07/05/19 at 17:00; Stop 07/05/19 at 17:01; Status DC Info (CONTRAST GIVEN -- Rx MONITORING) 1 each PRN DAILY PRN MC SEE COMMENTS; Start 07/05/19 at 17:00; Stop 07/07/19 at 16:59; Status DC Meropenem 1 gm/ Sodium Chloride 100 ml @ 200 mls/hr Q8HRS IV Last administered on 07/06/19at 05:45; Start 07/05/19 at 20:00; Stop 07/06/19 at 08:48; Status DC Furosemide (Lasix) 40 mg 1X ONCE IVP Last administered on 07/05/19at 22:12; Start 07/05/19 at 22:30; Stop 07/05/19 at 22:31; Status DC Calcium Chloride 1000 mg/Sodium Chloride 110 ml @ 220 mls/hr 1X ONCE IV Last administered on 07/05/19at 22:11; Start 07/05/19 at 22:30; Stop 07/05/19 at 22:59; Status DC Albuterol Sulfate (Ventolin Neb Soln) 2.5 mg 1X ONCE NEB Last administered on 07/06/19at 00:56; Start 07/05/19 at 22:30; Stop 07/05/19 at 22:31; Status DC Insulin Human Regular (HumuLIN R VIAL) 5 unit 1X ONCE IV Last administered on 07/05/19at 22:14; Start 07/05/19 at 22:30; Stop 07/05/19 at 22:31; Status DC Magnesium Sulfate 50 ml @ 25 mls/hr 1X ONCE IV Last administered on 07/06/19at 02:57; Start 07/06/19 at 03:00; Stop 07/06/19 at 04:59; Status DC Calcium Gluconate 1000 mg/Sodium Chloride 110 ml @ 220 mls/hr 1X ONCE IV Last administered on 07/06/19at 02:46; Start 07/06/19 at 03:00; Stop 07/06/19 at 03:29; Status DC Sodium Chloride 1,000 ml @ 200 mls/hr Q5H IV Last administered on 07/06/19at 02:46; Start 07/06/19 at 03:00; Stop 07/06/19 at 10:21; Status DC Calcium Gluconate 1000 mg/Sodium Chloride 110 ml @ 220 mls/hr 1X ONCE IV Last administered on 07/06/19at 03:21; Start 07/06/19 at 03:30; Stop 07/06/19 at 03:59; Status DC Sodium Bicarbonate 50 meq/Sodium Chloride 1,050 ml @ 75 mls/hr Q14H IV Last administered on 07/10/19at 21:10; Start 07/06/19 at 07:30; Stop 07/11/19 at 10:28; Status DC Calcium Gluconate 2000 mg/Sodium Chloride 120 ml @ 220 mls/hr 1X ONCE IV Last administered on 07/06/19at 09:05; Start 07/06/19 at 07:30; Stop 07/06/19 at 08:02; Status DC Lidocaine HCl (Xylocaine-Mpf 1% 2ml Vial) 2 ml STK-MED ONCE .ROUTE ; Start 07/06/19 at 08:47; Stop 07/06/19 at 08:47; Status DC Meropenem 500 mg/ Sodium Chloride 50 ml @ 100 mls/hr Q12HR IV Last administered on 07/11/19at 21:01; Start 07/06/19 at 18:00; Stop 07/12/19 at 07:58; Status DC Lidocaine HCl (Buffered Lidocaine 1%) 3 ml STK-MED ONCE .ROUTE ; Start 07/06/19 at 09:46; Stop 07/06/19 at 09:46; Status DC Lidocaine HCl (Buffered Lidocaine 1%) 6 ml 1X ONCE INJ Last administered on 07/06/19at 10:26; Start 07/06/19 at 10:15; Stop 07/06/19 at 10:16; Status DC Info (Tpn Per Pharmacy) 1 each PRN DAILY PRN MC SEE COMMENTS Last administered on 09/25/19at 08:44; Start 07/06/19 at 12:00 Sodium Chloride 1,000 ml @ 1,000 mls/hr Q1H PRN IV hypotension; Start 07/06/19 at 12:07; Stop 07/06/19 at 18:06; Status DC Diphenhydramine HCl (Benadryl) 25 mg 1X PRN PRN IV ITCHING; Start 07/06/19 at 12:15; Stop 07/07/19 at 12:14; Status DC Diphenhydramine HCl (Benadryl) 25 mg 1X PRN PRN IV ITCHING; Start 07/06/19 at 12:15; Stop 07/07/19 at 12:14; Status DC Sodium Chloride 1,000 ml @ 400 mls/hr Q2H30M PRN IV PATENCY; Start 07/06/19 at 12:07; Stop 07/07/19 at 00:06; Status DC Info (PHARMACY MONITORING -- do not chart) 1 each PRN DAILY PRN MC SEE COMMENTS; Start 07/06/19 at 12:15; Stop 07/08/19 at 08:13; Status DC Sodium Chloride 90 meq/Calcium Gluconate 10 meq/ Multivitamins 10 ml/Chromium/ Copper/Manganese/ Seleni/Zn 1 ml/ Total Parenteral Nutrition/Amino A cids/Dextrose/ Fat Emulsion Intravenous 55.005 ml @ 2.292 mls/hr TPN CONT IV ; Start 07/06/19 at 22:00; Stop 07/06/19 at 12:33; Status DC Info (Tpn Per Pharmacy) 1 each PRN DAILY PRN MC SEE COMMENTS; Start 07/06/19 at 12:30; Status UNV Sodium Chloride 90 meq/Calcium Gluconate 10 meq/ Multivitamins 10 ml/Chromium/ Copper/Manganese/ Seleni/Zn 0.5 ml/ Total Parenteral Nutrition/Amino Acids/Dextrose/ Fat Emulsion Intravenous 1,512 ml @ 63 mls/hr TPN CONT IV Last administered on 07/06/19at 22:06; Start 07/06/19 at 22:00; Stop 07/07/19 at 21:59; Status DC Calcium Carbonate/ Glycine (Tums) 500 mg PRN AFTMEALHC PRN PO INDIGESTION; Start 07/06/19 at 17:45; Stop 08/31/19 at 10:25; Status DC Calcium Gluconate (Calcium Gluconate) 2,000 mg 1X ONCE IVP Last administered on 07/07/19at 02:19; Start 07/07/19 at 02:15; Stop 07/07/19 at 02:16; Status DC Calcium Chloride 3000 mg/Sodium Chloride 1,030 ml @ 50 mls/hr [id number] IV Last administered on 07/09/19at 02:17; Start 07/07/19 at 08:00; Stop 07/09/19 at 15:23; Status DC Lorazepam (Ativan Inj) 1 mg PRN Q4HRS PRN IVP ANXIETY / AGITATION, 2nd choic Last administered on 08/05/19at 03:51; Start 07/07/19 at 09:00; Stop 08/05/19 at 09:19; Status DC Sodium Chloride 1,000 ml @ 1,000 mls/hr Q1H PRN IV hypotension; Start 07/07/19 at 08:56; Stop 07/07/19 at 14:55; Status DC Albumin Human 200 ml @ 200 mls/hr 1X PRN PRN IV Hypotension; Start 07/07/19 at 09:00; Stop 07/07/19 at 14:59; Status DC Diphenhydramine HCl (Benadryl) 25 mg 1X PRN PRN IV ITCHING; Start 07/07/19 at 0 9:00; Stop 07/08/19 at 08:59; Status DC Diphenhydramine HCl (Benadryl) 25 mg 1X PRN PRN IV ITCHING; Start 07/07/19 at 09:00; Stop 07/08/19 at 08:59; Status DC Sodium Chloride 1,000 ml @ 400 mls/hr Q2H30M PRN IV PATENCY; Start 07/07/19 at 08:56; Stop 07/07/19 at 20:55; Status DC Info (PHARMACY MONITORING -- do not chart) 1 each PRN DAILY PRN MC SEE COMMENTS; Start 07/07/19 at 09:00; Status UNV Info (PHARMACY MONITORING -- do not chart) 1 each PRN DAILY PRN MC SEE COMMENTS; Start 07/07/19 at 09:00; Stop 07/08/19 at 08:13; Status DC Digoxin (Lanoxin) 500 mcg 1X ONCE IV Last administered on 07/07/19at 10:04; Start 07/07/19 at 10:00; Stop 07/07/19 at 10:01; Status DC Digoxin (Lanoxin) 125 mcg 1X ONCE IV Last administered on 07/07/19at 17:10; Start 07/07/19 at 18:00; Stop 07/07/19 at 18:01; Status DC Magnesium Sulfate 100 ml @ 25 mls/hr 1X ONCE IV Last administered on at 12:48; Start 07/07/19 at 13:00; Stop 07/07/19 at 16:59; Status DC Sodium Chloride 90 meq/Magnesium Sulfate 10 meq/ Calcium Gluconate 20 meq/ Multivitamins 10 ml/Chromium/ Copper/Manganese/ Seleni/Zn 0.5 ml/ Total Parenteral Nutrition/Amino Acids/Dextrose/ Fat Emulsion Intravenous 1,512 ml @ 63 mls/hr TPN CONT IV Last administered on 07/07/19at 22:25; Start 07/07/19 at 22:00; Stop 07/08/19 at 21:59; Status DC Sodium Chloride 1,000 ml @ 1,000 mls/hr Q1H PRN IV hypotension; Start 07/08/19 at 08:05; Stop 07/08/19 at 14:04; Status DC Albumin Human 200 ml @ 200 mls/hr 1X ONCE IV Last administered on 07/08/19at 08:57; Start 07/08/19 at 08:15; Stop 07/08/19 at 09:14; Status DC Diphenhydramine HCl (Benadryl) 25 mg 1X PRN PRN IV ITCHING; Start 07/08/19 at 08:15; Stop 07/09/19 at 08:14; Status DC Diphenhydramine HCl (Benadryl) 25 mg 1X PRN PRN IV ITCHING; Start 07/08/19 at 08:15; Stop 07/09/19 at 08:14; Status DC Sodium Chloride 1,000 ml @ 400 mls/hr Q2H30M PRN IV PATENCY; Start 07/08/19 at 08:05; Stop 07/08/19 at 20:04; Status DC Info (PHARMACY MONITORING -- do not chart) 1 each PRN DAILY PRN MC SEE COMMENTS; Start 07/08/19 at 08:15; Stop 07/12/19 at 07:57; Status DC Sodium Chloride 90 meq/Potassium Chloride 15 meq/ Potassium Phosphate 10 mmol/ Magnesium Sulfate 10 meq/Calcium Gluconate 20 meq/ Multivitamins 10 ml/Chromium/ Copper/Manganese/ Seleni/Zn 0.5 ml/ Total Parenteral Nutrition/Amino Acids/Dextrose/ Fat Emulsion Intravenous 1,512 ml @ 63 mls/hr TPN CONT IV Last administered on 07/08/19at 21:01; Start 07/08/19 at 22:00; Stop 07/09/19 at 21:59; Status DC Potassium Chloride/Water 100 ml @ 100 mls/hr 1X ONCE IV Last administered on 07/08/19at 14:09; Start 07/08/19 at 14:00; Stop 07/08/19 at 14:59; Status DC Benzocaine (Hurricaine One) 1 spray 1X ONCE MM Last administered on 07/08/19at 16:38; Start 07/08/19 at 14:30; Stop 07/08/19 at 14:31; Status DC Lidocaine HCl (Glydo (Lidocaine) Jelly) 1 ramu 1X ONCE MM Last administered on 07/08/19at 16:38; Start 07/08/19 at 14:30; Stop 07/08/19 at 14:31; Status DC Linezolid/Dextrose 300 ml @ 300 mls/hr Q12HR IV Last administered on 07/14/19at 21:04; Start 07/08/19 at 20:00; Stop 07/15/19 at 07:50; Status DC Acetaminophen (Tylenol) 650 mg PRN Q6HRS PRN PO MILD PAIN / TEMP; Start 07/09/19 at 03:30; Stop 07/09/19 at 03:36; Status DC Acetaminophen (Tylenol) 650 mg PRN Q6HRS PRN PEG MILD PAIN / TEMP Last administered on 08/04/19at 19:56; Start 07/09/19 at 03:36; Stop 08/31/19 at 10:25; Status DC Sodium Chloride 1,000 ml @ 1,000 mls/hr Q1H PRN IV hypotension; Start 07/09/19 at 07:50; Stop 07/09/19 at 13:49; Status DC Albumin Human 200 ml @ 200 mls/hr 1X PRN PRN IV Hypotension; Start 07/09/19 at 08:00; Stop 07/09/19 at 13:59; Status DC Sodium Chloride (Normal Saline Flush) 10 ml 1X PRN PRN IV AP catheter pack; Start 07/09/19 at 08:00; Stop 07/10/19 at 07:59; Status DC Sodium Chloride (Normal Saline Flush) 10 ml 1X PRN PRN IV [employer]ESSIONAL catheter pack; Start 07/09/19 at 08:00; Stop 07/10/19 at 07:59; Status DC Sodium Chloride 1,000 ml @ 400 mls/hr Q2H30M PRN IV PATENCY; Start 07/09/19 at 07:50; Stop 07/09/19 at 19:49; Status DC Info (PHARMACY MONITORING -- do not chart) 1 each PRN DAILY PRN MC SEE COMMENTS; Start 07/09/19 at 08:00; Status UNV Info (PHARMACY MONITORING -- do not chart) 1 each PRN DAILY PRN MC SEE COMMENTS; Start 07/09/19 at 08:00; Stop 07/11/19 at 08:25; Status DC Sodium Chloride 90 meq/Potassium Chloride 15 meq/ Potassium Phosphate 10 mmol/ Magnesium Sulfate 10 meq/Calcium Gluconate 20 meq/ Multivitamins 10 ml/Chromium/ Copper/Manganese/ Seleni/Zn 0.5 ml/ Total Parenteral Nutrition/Amino Acids/Dextrose/ Fat Emulsion Intravenous 1,512 ml @ 63 mls/hr TPN CONT IV Last administered on 07/09/19at 20:57; Start 07/09/19 at 22:00; Stop 07/10/19 at 21:59; Status DC Sodium Chloride 90 meq/Potassium Chloride 15 meq/ Potassium Phosphate 15 mmol/ Magnesium Sulfate 10 meq/Calcium Gluconate 20 meq/ Multivitamins 10 ml/Chromium/ Copper/Manganese/ Seleni/Zn 0.5 ml/ Total Parenteral Nutrition/Amino Acids/Dextrose/ Fat Emulsion Intravenous 1,512 ml @ 63 mls/hr TPN CONT IV ; Start 07/10/19 at 22:00; Stop 07/10/19 at 14:16; Status DC Sodium Chloride 90 meq/Potassium Chloride 15 meq/ Potassium Phosphate 15 mmol/ Magnesium Sulfate 10 meq/Calcium Gluconate 20 meq/ Multivitamins 10 ml/Chromium/ Copper/Manganese/ Seleni/Zn 0.5 ml/ Total Parenteral Nutrition/Amino Acids/Dextrose/ Fat Emulsion Intravenous 1,200 ml @ 50 mls/hr TPN CONT IV ; Start 07/10/19 at 22:00; Stop 07/10/19 at 14:17; Status DC Sodium Chloride 90 meq/Potassium Chloride 15 meq/ Potassium Phosphate 10 mmol/ Magnesium Sulfate 10 meq/Calcium Gluconate 20 meq/ Multivitamins 10 ml/Chromium/ Copper/Manganese/ Seleni/Zn 0.5 ml/ Total Parenteral Nutrition/Amino Acids/Dextrose/ Fat Emulsion Intravenous 1,200 ml @ 50 mls/hr TPN CONT IV Last administered on 07/10/19at 23:29; Start 07/10/19 at 22:00; Stop 07/11/19 at 21:59; Status DC Sodium Chloride 1,000 ml @ 1,000 mls/hr Q1H PRN IV hypotension; Start 07/11/19 at 07:28; Stop 07/11/19 at 13:27; Status DC Albumin Human 200 ml @ 200 mls/hr 1X ONCE IV Last administered on 07/11/19at 08:51; Start 07/11/19 at 07:30; Stop 07/11/19 at 08:29; Status DC Diphenhydramine HCl (Benadryl) 25 mg 1X PRN PRN IV ITCHING; Start 07/11/19 at 07:30; Stop 07/12/19 at 07:29; Status DC Diphenhydramine HCl (Benadryl) 25 mg 1X PRN PRN IV ITCHING; Start 07/11/19 at 07:30; Stop 07/12/19 at 07:29; Status DC Sodium Chloride 1,000 ml @ 400 mls/hr Q2H30M PRN IV PATENCY; Start 07/11/19 at 07:28; Stop 07/11/19 at 19:27; Status DC Info (PHARMACY MONITORING -- do not chart) 1 each PRN DAILY PRN MC SEE COMMENTS; Start 07/11/19 at 07:30; Stop 07/22/19 at 13:01; Status DC Metronidazole 100 ml @ 100 mls/hr Q6HRS IV Last administered on 07/27/19at 06:26; Start 07/11/19 at 08:30; Stop 07/27/19 at 09:58; Status DC Micafungin Sodium 100 mg/Dextrose 100 ml @ 100 mls/hr Q24H IV Last administered on 08/18/19at 08:18; Start 07/11/19 at 09:00; Stop 08/18/19 at 20:58 ; Status DC Propofol 0 ml @ As Directed STK-MED ONCE IV ; Start 07/11/19 at 07:53; Stop 07/11/19 at 07:53; Status DC Etomidate (Amidate) 20 mg STK-MED ONCE IV ; Start 07/11/19 at 07:53; Stop 07/11/19 at 07:54; Status DC Midazolam HCl (Versed) 5 mg STK-MED ONCE .ROUTE ; Start 07/11/19 at 07:57; Stop 07/11/19 at 07:57; Status DC Fentanyl Citrate 30 ml @ 0 mls/hr CONT PRN IV SEE PROTOCOL Last administered on 08/05/19at 06:12; Start 07/11/19 at 08:15; Stop 08/05/19 at 09:19; Status DC Artificial Tears (Artificial Tears) 1 drop PRN Q1HR PRN OU DRY EYE, 1st choice; Start 07/11/19 at 08:15; Stop 08/17/19 at 05:31; Status DC Midazolam HCl 50 mg/Sodium Chloride 50 ml @ 0 mls/hr CONT PRN IV SEE PROTOCOL Last administered on 07/14/19at 22:39; Start 07/11/19 at 08:15; Stop 07/16/19 at 15:59; Status DC Etomidate (Amidate) 8 mg 1X ONCE IV Last administered on 07/11/19at 08:33; Start 07/11/19 at 08:30; Stop 07/11/19 at 08:31; Status DC Succinylcholine Chloride (Anectine) 120 mg 1X ONCE IV Last administered on at 08:34; Start 07/11/19 at 08:30; Stop 07/11/19 at 08:31; Status DC Midazolam HCl (Versed) 5 mg 1X ONCE IV ; Start 07/11/19 at 08:30; Stop 07/11/19 at 08:31; Status DC Potassium Chloride 15 meq/ Bicarbonate Dialysis Soln w/ out KCl 5,007.5 ml @ 1 ,000 mls/ hr Q5H1M IV Last administered on 07/12/19at 11:11; Start 07/11/19 at 12:00; Stop 07/12/19 at 11:15; Status DC Potassium Chloride 15 meq/ Bicarbonate Dialysis Soln w/ out KCl 5,007.5 ml @ 1,000 mls/ hr Q5H1M IV Last administered on 07/12/19at 11:12; Start 07/11/19 at 12:00; Stop 07/12/19 at 11:17; Status DC Potassium Chloride 15 meq/ Bicarbonate Dialysis Soln w/ out KCl 5,007.5 ml @ 1,000 mls/ hr Q5H1M IV Last administered on 07/12/19at 11:11; Start 07/11/19 at 12:00; Stop 07/12/19 at 11:19; Status DC Sodium Chloride 90 meq/Potassium Chloride 15 meq/ Potassium Phosphate 10 mmol/ Magnesium Sulfate 10 meq/Calcium Gluconate 20 meq/ Multivitamins 10 ml/Chromium/ Copper/Manganese/ Seleni/Zn 0.5 ml/ Total Parenteral Nutrition/Amino Acids/Dextrose/ Fat Emulsion Intravenous 1,400 ml @ 58.333 mls/ hr TPN CONT IV Last administered on 07/11/19at 21:42; Start 07/11/19 at 22:00; Stop 07/12/19 at 21:59; Status DC Heparin Sodium (Porcine) (Heparin Sodium) 5,000 unit Q8HRS SQ Last administered on 07/16/19at 05:55; Start 07/11/19 at 15:00; Stop 07/16/19 at 13:28; Status DC Meropenem 500 mg/ Sodium Chloride 50 ml @ 100 mls/hr Q6HRS IV Last administered on 07/13/19at 06:00; Start 07/12/19 at 09:00; Stop 07/13/19 at 07:29; Status DC Potassium Phosphate 20 mmol/ Sodium Chloride 106.6667 ml @ 51.667 m... 1X ONCE IV Last administered on 07/12/19at 11:22; Start 07/12/19 at 10:15; Stop 07/12/19 at 12:18; Status DC Acetaminophen (Tylenol Supp) 650 mg PRN Q6HRS PRN IN MILD PAIN / TEMP > 100.3'F Last administered on 09/25/19at 14:41; Start 07/12/19 at 10:30 Potassium Chloride/Water 100 ml @ 100 mls/hr Q1H IV Last administered on 07/12/19at 12:12; Start 07/12/19 at 11:00; Stop 07/12/19 at 12:59; Status DC Potassium Chloride 20 meq/ Bicarbonate Dialysis Soln w/ out KCl 5,010 ml @ 1,000 mls/hr Q5H1M IV Last administered on 07/13/19at 08:48; Start 07/12/19 at 12:00; Stop 07/13/19 at 13:03; Status DC Potassium Chloride 20 meq/ Bicarbonate Dialysis Soln w/ out KCl 5,010 ml @ 1,000 mls/hr Q5H1M IV Last administered on 07/17/19at 14:52; Start 07/12/19 at 11:30; Stop 07/17/19 at 19:59; Status DC Potassium Chloride 20 meq/ Bicarbonate Dialysis Soln w/ out KCl 5,010 ml @ 1,000 mls/hr Q5H1M IV Last administered on 07/17/19at 14:53; Start 07/12/19 at 11:30; Stop 07/17/19 at 19:59; Status DC Sodium Chloride 90 meq/Potassium Chloride 15 meq/ Potassium Phosphate 15 mmol/ Magnesium Sulfate 10 meq/Calcium Gluconate 15 meq/ Multivitamins 10 ml/Chromium/ Copper/Manganese/ Seleni/Zn 0.5 ml/ Total Parenteral Nutrition/Amino Acids/Dext amarilis/ Fat Emulsion Intravenous 1,400 ml @ 58.333 mls/ hr TPN CONT IV Last administered on 07/12/19at 22:17; Start 07/12/19 at 22:00; Stop 07/13/19 at 21:59; Status DC Cefepime HCl (Maxipime) 2 gm Q12HR IVP Last administered on 07/26/19at 20:56; Start 07/13/19 at 09:00; Stop 07/27/19 at 09:58; Status DC Daptomycin 500 mg/ Sodium Chloride 50 ml @ 100 mls/hr Q48H IV Last administe red on 07/29/19at 09:57; Start 07/13/19 at 08:30; Stop 07/29/19 at 10:07; Status DC Lidocaine HCl (Buffered Lidocaine 1%) 3 ml 1X ONCE INJ Last administered on 07/13/19at 10:27; Start 07/13/19 at 10:30; Stop 07/13/19 at 10:31; Status DC Potassium Phosphate 20 mmol/ Sodium Chloride 106.6667 ml @ 51.667 m... 1X ONCE IV Last administered on 07/13/19at 12:51; Start 07/13/19 at 13:00; Stop 07/13/19 at 15:03; Status DC Sodium Chloride 90 meq/Potassium Chloride 15 meq/ Potassium Phosphate 18 mmol/ Magnesium Sulfate 8 meq/Calcium Gluconate 15 meq/ Multivitamins 10 ml/Chromium/ Copper/Manganese/ Seleni/Zn 0.5 ml/ Total Parenteral Nutrition/Amino Acids/Dextrose/ Fat Emulsion Intravenous 1,400 ml @ 58.333 mls/ hr TPN CONT IV Last administered on 07/13/19at 22:16; Start 07/13/19 at 22:00; Stop 07/14/19 at 21:59; Status DC Potassium Chloride 20 meq/ Bicarbonate Dialysis Soln w/ out KCl 5,010 ml @ 1,000 mls/hr Q5H1M IV Last administered on 07/17/19at 14:54; Start 07/13/19 at 16:00; Stop 07/17/19 at 19:59; Status DC Multi-Ingred Cream/Lotion/Oil/ Oint (Artificial Tears Eye Ointment) 1 ramu PRN Q1HR PRN OU DRY EYE, 2nd choice Last administered on 08/01/19at 08:19; Start 07/13/19 at 17:30; Stop 09/21/19 at 14:39; Status DC Sodium Chloride 90 meq/Potassium Chloride 15 meq/ Potassium Phosphate 18 mmol/ Magnesium Sulfate 8 meq/Calcium Gluconate 15 meq/ Multivitamins 10 ml/Chromium/ Copper/Manganese/ Seleni/Zn 0.5 ml/ Total Parenteral Nutrition/Amino Acids/Dextrose/ Fat Emulsion Intravenous 1,400 ml @ 58.333 mls/ hr TPN CONT IV Last administered on 07/14/19at 22:00; Start 07/14/19 at 22:00; Stop 07/15/19 at 21:59; Status DC Albumin Human 500 ml @ 125 mls/hr 1X ONCE IV ; Start 07/14/19 at 14:15; Stop 07/14/19 at 18:14; Status DC Sodium Chloride 90 meq/Potassium Chloride 15 meq/ Potassium Phosphate 18 mmol/ Magnesium Sulfate 8 meq/Calcium Gluconate 15 meq/ Multivitamins 10 ml/Chromium/ Copper/Manganese/ Seleni/Zn 0.5 ml/ Insulin Human Regular 10 unit/ Total Parenteral Nutrition/Amino Acids/Dextrose/ Fat Emulsion Intravenous 1,400 ml @ 58.333 mls/ hr TPN CONT IV Last administered on 07/15/19at 21:43; Start 07/15/19 at 22:00; Stop 07/16/19 at 21:59; Status DC Lidocaine HCl (Buffered Lidocaine 1%) 3 ml STK-MED ONCE .ROUTE ; Start 07/13/19 at 10:00; Stop 07/15/19 at 13:57; Status DC Midazolam HCl 100 mg/Sodium Chloride 100 ml @ 7 mls/hr CONT PRN IV SEE PROTOCOL Last administered on 07/27/19at 15:35; Start 07/16/19 at 16:00; Stop 09/21/19 at 14:38; Status DC Sodium Chloride 90 meq/Potassium Chloride 15 meq/ Potassium Phosphate 18 mmol/ Magnesium Sulfate 8 meq/Calcium Gluconate 15 meq/ Multivitamins 10 ml/Chromium/ Copper/Manganese/ Seleni/Zn 0.5 ml/ Insulin Human Regular 15 unit/ Total Parenteral Nutrition/Amino Acids/Dextrose/ Fat Emulsion Intravenous 1,400 ml @ 58.333 mls/ hr TPN CONT IV Last administered on 07/16/19at 20:34; Start 07/16/19 at 22:00; Stop 07/17/19 at 21:59; Status DC Info (Icu Electrolyte Protocol) 1 ea CONT PRN PRN MC PER PROTOCOL; Start 07/17/19 at 13:15 Sodium Chloride 90 meq/Potassium Chloride 15 meq/ Potassium Phosphate 18 mmol/ Magnesium Sulfate 8 meq/Calcium Gluconate 15 meq/ Multivitamins 10 ml/Chromium/ Copper/Manganese/ Seleni/Zn 0.5 ml/ Insulin Human Regular 15 unit/ Total Parenteral Nutrition/Amino Acids/Dextrose/ Fat Emulsion Intravenous 1,400 ml @ 58.333 mls/ hr TPN CONT IV Last administered on 07/17/19at 22:05; Start 07/17/19 at 22:00; Stop 07/18/19 at 21:59; Status DC Potassium Chloride 15 meq/ Bicarbonate Dialysis Soln w/ out KCl 5,007.5 ml @ 1,000 mls/ hr Q5H1M IV Last administered on 07/20/19at 18:14; Start 07/17/19 at 20:00; Stop 07/21/19 at 13:08; Status DC Potassium Chloride 15 meq/ Bicarbonate Dialysis Soln w/ out KCl 5,007.5 ml @ 1,000 mls/ hr Q5H1M IV Last administered on 07/20/19at 18:14; Start 07/17/19 at 20:00; Stop 07/21/19 at 13:08; Status DC Potassium Chloride 15 meq/ Bicarbonate Dialysis Soln w/ out KCl 5,007.5 ml @ 1,000 mls/ hr Q5H1M IV Last administered on 07/20/19at 18:14; Start 07/17/19 at 20:00; Stop 07/21/19 at 13:08; Status DC Iohexol (Omnipaque 240 Mg/ml) 30 ml 1X ONCE PO Last administered on 07/18/19at 11:30; Start 07/18/19 at 11:30; Stop 07/18/19 at 11:33; Status DC Info (CONTRAST GIVEN -- Rx MONITORING) 1 each PRN DAILY PRN MC SEE COMMENTS; Start 07/18/19 at 11:45; Stop 07/20/19 at 11:44; Status DC Sodium Chloride 90 meq/Potassium Chloride 15 meq/ Potassium Phosphate 18 mmol/ Magnesium Sulfate 8 meq/Calcium Gluconate 15 meq/ Multivitamins 10 ml/Chromium/ Copper/Manganese/ Seleni/Zn 0.5 ml/ Insulin Human Regular 15 unit/ Total Parenteral Nutrition/Amino Acids/Dextrose/ Fat Emulsion Intravenous 1,400 ml @ 58.333 mls/ hr TPN CONT IV Last administered on 07/18/19at 21:47; Start 07/18/19 at 22:00; Stop 07/19/19 at 21:59; Status DC Sodium Chloride 90 meq/Potassium Chloride 15 meq/ Potassium Phosphate 18 mmol/ Magnesium Sulfate 8 meq/Calcium Gluconate 15 meq/ Multivitamins 10 ml/Chromium/ Copper/Manganese/ Seleni/Zn 0.5 ml/ Insulin Human Regular 20 unit/ Total Parenteral Nutrition/Amino Acids/Dextrose/ Fat Emulsion Intravenous 1,400 ml @ 58.333 mls/ hr TPN CONT IV Last administered on 07/19/19at 21:36; Start 07/19/19 at 22:00; Stop 07/20/19 at 21:59; Status DC Alteplase, Recombinant (Cathflo For Central Catheter Clearance) 1 mg 1X ONCE INT CAT Last administered on 07/19/19at 20:03; Start 07/19/19 at 19:30; Stop at 19:46; Status DC Alteplase, Recombinant (Cathflo For Central Catheter Clearance) 1 mg 1X ONCE INT CAT Last administered on 07/19/19at 22:05; Start 07/19/19 at 22:00; Stop 07/19/19 at 22:01; Status DC Sodium Chloride 90 meq/Potassium Chloride 15 meq/ Potassium Phosphate 18 mmol/ Magnesium Sulfate 8 meq/Calcium Gluconate 15 meq/ Multivitamins 10 ml/Chromium/ Copper/Manganese/ Seleni/Zn 0.5 ml/ Insulin Human Regular 20 unit/ Total Parenteral Nutrition/Amino Acids/Dextrose/ Fat Emulsion Intravenous 1,400 ml @ 58.333 mls/ hr TPN CONT IV Last administered on 07/20/19at 21:30; Start 07/20/19 at 22:00; Stop 07/21/19 at 21:59; Status DC Dexmedetomidine HCl 400 mcg/ Sodium Chloride 100 ml @ 0 mls/hr CONT PRN IV ANXIETY / AGITATION Last administered on 09/17/19at 12:57; Start 07/21/19 at 08:15; Stop 09/17/19 at 18:31; Status DC Sodium Chloride 500 ml @ 500 mls/hr 1X PRN PRN IV ELEVATED BP, SEE COMMENTS; Start 07/21/19 at 08:15 Atropine Sulfate (ATROPINE 0.5mg SYRINGE) 0.5 mg PRN Q5MIN PRN IV SEE COMMENTS; Start 07/21/19 at 08:15 Furosemide (Lasix) 20 mg 1X ONCE IVP Last administered on 07/21/19at 08:19; Start 07/21/19 at 08:15; Stop 07/21/19 at 08:16; Status DC Lidocaine HCl (Buffered Lidocaine 1%) 3 ml STK-MED ONCE .ROUTE ; Start 07/21/19 at 08:39; Stop 07/21/19 at 08:39; Status DC Lidocaine HCl (Buffered Lidocaine 1%) 6 ml 1X ONCE INJ Last administered on 07/21/19at 09:05; Start 07/21/19 at 09:00; Stop 07/21/19 at 09:06; Status DC Sodium Chloride 90 meq/Potassium Chloride 15 meq/ Potassium Phosphate 18 mmol/ M agnesium Sulfate 8 meq/Calcium Gluconate 15 meq/ Multivitamins 10 ml/Chromium/ Copper/Manganese/ Seleni/Zn 0.5 ml/ Insulin Human Regular 20 unit/ Total Parenteral Nutrition/Amino Acids/Dextrose/ Fat Emulsion Intravenous 1,400 ml @ 58.333 mls/ hr TPN CONT IV Last administered on 07/21/19at 22:45; Start 07/21/19 at 22:00; Stop 07/22/19 at 21:59; Status DC Sodium Chloride 1,000 ml @ 1,000 mls/hr Q1H PRN IV hypotension; Start 07/22/19 at 07:30; Stop 07/22/19 at 13:29; Status DC Albumin Human 200 ml @ 200 mls/hr 1X PRN PRN IV Hypotension Last administered on 07/22/19at 09:36; Start 07/22/19 at 07:30; Stop 07/22/19 at 13:29; Status DC Sodium Chloride (Normal Saline Flush) 10 ml 1X PRN PRN IV AP catheter pack; Start 07/22/19 at 07:30; Stop 07/22/19 at 21:29; Status DC Sodium Chloride (Normal Saline Flush) 10 ml 1X PRN PRN IV [employer]ESSION[employer] catheter pack; Start 07/22/19 at 07:30; Stop 07/23/19 at 07:29; Status DC Sodium Chloride 1,000 ml @ 400 mls/hr Q2H30M PRN IV PATENCY; Start 07/22/19 at 07:30; Stop 07/22/19 at 19:29; Status DC Info (PHARMACY MONITORING -- do not chart) 1 each PRN DAILY PRN MC SEE COMMENTS; Start 07/22/19 at 07:30; Stop 07/22/19 at 13:02; Status DC Info (PHARMACY MONITORING -- do not chart) 1 each PRN DAILY PRN MC SEE COMMENTS; Start 07/22/19 at 07:30; Stop 07/24/19 at 12:45; Status DC Sodium Chloride 90 meq/Potassium Chloride 15 meq/ Potassium Phosphate 10 mmol/ Magnesium Sulfate 8 meq/Calcium Gluconate 15 meq/ Multivitamins 10 ml/Chromium/ Copper/Manganese/ Seleni/Zn 0.5 ml/ Insulin Human Regular 25 unit/ Total Parenteral Nutrition/Amino Acids/Dextrose/ Fat Emulsion Intravenous 1,400 ml @ 58.333 mls/ hr TPN CONT IV Last administered on 07/22/19at 22:19; Start 07/22/19 at 22:00; Stop 07/23/19 at 21:59; Status DC Heparin Sodium (Porcine) (Heparin Sodium) 5,000 unit Q12HR SQ Last administered on 08/14/19at 08:59; Start 07/22/19 at 21:00; Stop 08/14/19 at 10:05; Status DC Ondansetron HCl (Zofran) 4 mg PRN Q6HRS PRN IV NAUSEA/VOMITING; Start 07/25/19 at 07:00; Stop 07/26/19 at 06:59; Status DC Fentanyl Citrate (Fentanyl 2ml Vial) 25 mcg PRN Q5MIN PRN IV MILD PAIN 1-3; Start 07/25/19 at 07:00; Stop 07/26/19 at 06:59; Status DC Fentanyl Citrate (Fentanyl 2ml Vial) 50 mcg PRN Q5MIN PRN IV MODERATE TO SEVERE PAIN; Start 07/25/19 at 07:00; Stop 07/26/19 at 06:59; Status DC Ringer's Solution 1,000 ml @ 30 mls/hr Q24H IV ; Start 07/25/19 at 07:00; Stop 07/25/19 at 18:59; Status DC Lidocaine HCl (Xylocaine-Mpf 1% 2ml Vial) 2 ml PRN 1X PRN ID PRIOR TO IV START; Start 07/25/19 at 07:00; Stop 07/26/19 at 06:59; Status DC Prochlorperazine Edisylate (Compazine) 5 mg PACU PRN PRN IV NAUSEA, MRX1; Start 07/25/19 at 07:00; Stop 07/26/19 at 06:59; Status DC Sodium Chloride 1,000 ml @ 1,000 mls/hr Q1H PRN IV hypotension; Start 07/23/19 at 09:10; Stop 07/23/19 at 15:09; Status DC Albumin Human 200 ml @ 200 mls/hr 1X PRN PRN IV Hypotension Last administered on 07/23/19at 10:10; Start 07/23/19 at 09:15; Stop 07/23/19 at 15:14; Status DC Sodium Chloride 1,000 ml @ 400 mls/hr Q2H30M PRN IV PATENCY; Start 07/23/19 at 09:10; Stop 07/23/19 at 21:09; Status DC Info (PHARMACY MONITORING -- do not chart) 1 each PRN DAILY PRN MC SEE COMMENTS; Start 07/23/19 at 09:15; Stop 07/24/19 at 12:45; Status DC Info (PHARMACY MONITORING -- do not chart) 1 each PRN DAILY PRN MC SEE COMMENTS; Start 07/23/19 at 09:15; Stop 07/24/19 at 12:45; Status DC Sodium Chloride 90 meq/Potassium Chloride 15 meq/ Potassium Phosphate 10 mmol/ Magnesium Sulfate 8 meq/Calcium Gluconate 15 meq/ Multivitamins 10 ml/Chromium/ Copper/Manganese/ Seleni/Zn 0.5 ml/ Insulin Human Regular 25 unit/ Total Parenteral Nutrition/Amino Acids/Dextrose/ Fat Emulsion Intravenous 1,400 ml @ 58.333 mls/ hr TPN CONT IV Last administered on 07/23/19at 22:10; Start 07/23/19 at 22:00; Stop 07/24/19 at 21:59; Status DC Magnesium Sulfate 50 ml @ 25 mls/hr PRN DAILY PRN IV for Mag < 1.7 on am labs Last administered on 08/08/19at 17:27; Start 07/24/19 at 09:15 Sodium Chloride 90 meq/Potassium Chloride 15 meq/ Potassium Phosphate 10 mmol/ Magnesium Sulfate 8 meq/Calcium Gluconate 15 meq/ Multivitamins 10 ml/Chromium/ Copper/Manganese/ Seleni/Zn 0.5 ml/ Insulin Human Regular 25 unit/ Total Parenteral Nutrition/Amino Acids/Dextrose/ Fat Emulsion Intravenous 1,400 ml @ 58.333 mls/ hr TPN CONT IV Last administered on 07/24/19at 21:20; Start 07/24/19 at 22:00; Stop 07/25/19 at 21:59; Status DC Sodium Chloride 1,000 ml @ 1,000 mls/hr Q1H PRN IV hypotension; Start 07/24/19 at 12:23; Stop 07/24/19 at 18:22; Status DC Albumin Human 200 ml @ 200 mls/hr 1X ONCE IV Last administered on 07/24/19at 13:34; Start 07/24/19 at 12:30; Stop 07/24/19 at 13:29; Status DC Diphenhydramine HCl (Benadryl) 25 mg 1X PRN PRN IV ITCHING; Start 07/24/19 at 12:30; Stop 07/25/19 at 12:29; Status DC Diphenhydramine HCl (Benadryl) 25 mg 1X PRN PRN IV ITCHING; Start 07/24/19 at 12:30; Stop 07/25/19 at 12:29; Status DC Info (PHARMACY MONITORING -- do not chart) 1 each PRN DAILY PRN MC SEE COMMENTS; Start 07/24/19 at 12:30; Status Cancel Bupivacaine HCl/ Epinephrine Bitart (Sensorcain-Epi 0.5%-1:[id number] Mpf) 30 ml STK-MED ONCE .ROUTE Last administered on 07/25/19at 11:44; Start 07/25/19 at 11:00; Stop 07/25/19 at 11:01; Status DC Cellulose (Surgicel Fibrillar 1x2) 1 each STK-MED ONCE .ROUTE ; Start 07/25/19 at 11:00; Stop 07/25/19 at 11:01; Status DC Sodium Chloride 90 meq/Potassium Chloride 15 meq/ Potassium Phosphate 10 mmol/ Magnesium Sulfate 12 meq/Calcium Gluconate 15 meq/ Multivitamins 10 ml/Chromium/ Copper/Manganese/ Seleni/Zn 0.5 ml/ Insulin Human Regular 25 unit/ Total Parenteral Nutrition/Amino Acids/Dextrose/ Fat Emulsion Intravenous 1,400 ml @ 58.333 mls/ hr TPN CONT IV Last administered on 07/25/19at 22:24; Start 07/25/19 at 22:00; Stop 07/26/19 at 21:59; Status DC Propofol 20 ml @ As Directed STK-MED ONCE IV ; Start 07/25/19 at 11:07; Stop 07/25/19 at 11:07; Status DC Cellulose (Surgicel Hemostat 4x8) 1 each STK-MED ONCE .ROUTE Last administered on 07/25/19at 11:44; Start 07/25/19 at 11:55; Stop 07/25/19 at 11:56; Status DC Sevoflurane (Ultane) 60 ml STK-MED ONCE IH ; Start 07/25/19 at 12:46; Stop 07/25/19 at 12:46; Status DC Sodium Chloride 1,000 ml @ 1,000 mls/hr Q1H PRN IV hypotension; Start 07/25/19 at 13:51; Stop 07/25/19 at 19:50; Status DC Albumin Human 200 ml @ 200 mls/hr 1X PRN PRN IV Hypotension Last administered on 07/25/19at 14:51; Start 07/25/19 at 14:00; Stop 07/25/19 at 19:59; Status DC Diphenhydramine HCl (Benadryl) 25 mg 1X PRN PRN IV ITCHING; Start 07/25/19 at 14:00; Stop 07/26/19 at 13:59; Status DC Diphenhydramine HCl (Benadryl) 25 mg 1X PRN PRN IV ITCHING; Start 07/25/19 at 14:00; Stop 07/26/19 at 13:59; Status DC Sodium Chloride 1,000 ml @ 400 mls/hr Q2H30M PRN IV PATENCY; Start 07/25/19 at 13:51; Stop 07/26/19 at 01:50; Status DC Info (PHARMACY MONITORING -- do not chart) 1 each PRN DAILY PRN MC SEE COMMENTS; Start 07/25/19 at 14:00; Stop 07/28/19 at 08:16; Status DC Heparin Sodium (Porcine) (Hep Lock Adult) 500 unit STK-MED ONCE IVP ; Start 07/26/19 at 09:29; Stop 07/26/19 at 09:30; Status DC Sodium Chloride 1,000 ml @ 1,000 mls/hr Q1H PRN IV hypotension; Start 07/26/19 at 10:43; Stop 07/26/19 at 16:42; Status DC Sodium Chloride 1,000 ml @ 400 mls/hr Q2H30M PRN IV PATENCY; Start 07/26/19 at 10:43; Stop 07/26/19 at 22:42; Status DC Info (PHARMACY MONITORING -- do not chart) 1 each PRN DAILY PRN MC SEE COMMENTS; Start 07/26/19 at 10:45; Status UNV Info (PHARMACY MONITORING -- do not chart) 1 each PRN DAILY PRN MC SEE COMMENTS; Start 07/26/19 at 10:45; Status UNV Sodium Chloride 90 meq/Potassium Chloride 15 meq/ Magnesium Sulfate 12 meq/Calcium Gluconate 15 meq/ Multivitamins 10 ml/Chromium/ Copper/Manganese/ Seleni/Zn 0.5 ml/ Insulin Human Regular 25 unit/ Total Parenteral Nutrition/Amino Acids/Dextrose/ Fat Emulsion Intravenous 1,400 ml @ 58.333 mls/ hr TPN CONT IV Last administered on 07/26/19at 22:13; Start 07/26/19 at 22:00; Stop 07/27/19 at 21:59; Status DC Sodium Chloride 1,000 ml @ 1,000 mls/hr Q1H PRN IV hypotension; Start 07/27/19 at 07:50; Stop 07/27/19 at 13:49; Status DC Albumin Human 200 ml @ 200 mls/hr 1X ONCE IV ; Start 07/27/19 at 08:00; Stop 07/27/19 at 08:53; Status DC Diphenhydramine HCl (Benadryl) 25 mg 1X PRN PRN IV ITCHING; Start 07/27/19 at 08:00; Stop 07/28/19 at 07:59; Status DC Diphenhydramine HCl (Benadryl) 25 mg 1X PRN PRN IV ITCHING; Start 07/27/19 at 08:00; Stop 07/28/19 at 07:59; Status DC Info (PHARMACY MONITORING -- do not chart) 1 each PRN DAILY PRN MC SEE COMMENTS; Start 07/27/19 at 08:00; Stop 07/28/19 at 08:16; Status DC Albumin Human 50 ml @ 50 mls/hr 1X ONCE IV ; Start 07/27/19 at 08:53; Stop 07/27/19 at 08:56; Status DC Albumin Human 200 ml @ 50 mls/hr PRN 1X PRN IV HYPOTENSION Last administered o n 08/02/19at 11:54; Start 07/27/19 at 09:00; Stop 09/08/19 at 11:14; Status DC Meropenem 500 mg/ Sodium Chloride 50 ml @ 100 mls/hr Q12H IV Last administered on 08/16/19at 10:45; Start 07/27/19 at 10:00; Stop 08/16/19 at 12:37; Status DC Sodium Chloride 90 meq/Magnesium Sulfate 12 meq/ Calcium Gluconate 15 meq/ Multivitamins 10 ml/Chromium/ Copper/Manganese/ Seleni/Zn 0.5 ml/ Insulin Human Regular 25 unit/ Total Parenteral Nutrition/Amino Acids/Dextrose/ Fat Emulsion Intravenous 1,400 ml @ 58.333 mls/ hr TPN CONT IV Last administered on 07/27/19at 21:41; Start 07/27/19 at 22:00; Stop 07/28/19 at 21:59; Status DC Sodium Chloride 1,000 ml @ 1,000 mls/hr Q1H PRN IV hypotension; Start 07/28/19 at 07:58; Stop 07/28/19 at 13:57; Status DC Albumin Human 200 ml @ 200 mls/hr 1X PRN PRN IV Hypotension Last administered on 07/28/19at 09:30; Start 07/28/19 at 08:00; Stop 07/28/19 at 13:59; Status DC Sodium Chloride 1,000 ml @ 400 mls/hr Q2H30M PRN IV PATENCY; Start 07/28/19 at 07:58; Stop 07/28/19 at 19:57; Status DC Info (PHARMACY MONITORING -- do not chart) 1 each PRN DAILY PRN MC SEE COMMENTS; Start 07/28/19 at 08:00; Status Cancel Info (PHARMACY MONITORING -- do not chart) 1 each PRN DAILY PRN MC SEE COMMENTS; Start 07/28/19 at 08:15; Status UNV Sodium Chloride 90 meq/Potassium Phosphate 5 mmol/ Magnesium Sulfate 12 meq/Calcium Gluconate 15 meq/ Multivitamins 10 ml/Chromium/ Copper/Manganese/ Seleni/Zn 0.5 ml/ Insulin Human Regular 30 unit/ Total Parenteral Nutrition/Amino Acids/Dextrose/ Fat Emulsion Intravenous 1,400 ml @ 58.333 mls/ hr TPN CONT IV Last administered on 07/28/19at 22:08; Start 07/28/19 at 22:00; Stop 07/29/19 at 21:59; Status DC Linezolid/Dextrose 300 ml @ 300 mls/hr Q12HR IV Last administered on 08/08/19at 20:40; Start 07/29/19 at 11:00; Stop 08/09/19 at 08:10; Status DC Sodium Chloride 90 meq/Potassium Phosphate 15 mmol/ Magnesium Sulfate 12 meq/Calcium Gluconate 15 meq/ Multivitamins 10 ml/Chromium/ Copper/Manganese/ Seleni/Zn 0.5 ml/ Insulin Human Regular 30 unit/ Total Parenteral Nutrition/Alfaro o Acids/Dextrose/ Fat Emulsion Intravenous 1,400 ml @ 58.333 mls/ hr TPN CONT IV Last administered on 07/29/19at 21:49; Start 07/29/19 at 22:00; Stop 07/30/19 at 21:59; Status DC Sodium Chloride 90 meq/Potassium Phosphate 15 mmol/ Magnesium Sulfate 12 m eq/Calcium Gluconate 15 meq/ Multivitamins 10 ml/Chromium/ Copper/Manganese/ Seleni/Zn 0.5 ml/ Insulin Human Regular 40 unit/ Total Parenteral Nutrition/Amino Acids/Dextrose/ Fat Emulsion Intravenous 1,400 ml @ 58.333 mls/ hr TPN CONT IV Last administered on 07/30/19at 21:21; Start 07/30/19 at 22:00; Stop 07/31/19 at 21:59; Status DC Sodium Chloride 1,000 ml @ 1,000 mls/hr Q1H PRN IV hypotension; Start 07/30/19 at 13:26; Stop 07/30/19 at 19:25; Status DC Albumin Human 200 ml @ 200 mls/hr 1X PRN PRN IV Hypotension Last administered on 07/30/19at 15:00; Start 07/30/19 at 13:30; Stop 07/30/19 at 19:29; Status DC Sodium Chloride (Normal Saline Flush) 10 ml 1X PRN PRN IV AP catheter pack; Start 07/30/19 at 13:30; Stop 07/31/19 at 13:29; Status DC Sodium Chloride (Normal Saline Flush) 10 ml 1X PRN PRN IV [employer] catheter pack; Start 07/30/19 at 13:30; Stop 07/31/19 at 13:29; Status DC Sodium Chloride 1,000 ml @ 400 mls/hr Q2H30M PRN IV PATENCY; Start 07/30/19 at 13:26; Stop 07/31/19 at 01:25; Status DC Info (PHARMACY MONITORING -- do not chart) 1 each PRN DAILY PRN MC SEE COMMENTS; Start 07/30/19 at 13:30; Stop 07/30/19 at 13:33; Status DC Info (PHARMACY MONITORING -- do not chart) 1 each PRN DAILY PRN MC SEE COMMENTS; Start 07/30/19 at 13:30; Stop 07/30/19 at 13:34; Status DC Sodium Chloride 90 meq/Potassium Phosphate 19 mmol/ Magnesium Sulfate 12 meq/Calcium Gluconate 15 meq/ Multivitamins 10 ml/Chromium/ Copper/Manganese/ Seleni/Zn 0.5 ml/ Insulin Human Regular 40 unit/ Total Parenteral Nutrition/Amino Acids/Dextrose/ Fat Emulsion Intravenous 1,400 ml @ 58.333 mls/ hr TPN CONT IV Last administered on 07/31/19at 21:54; Start 07/31/19 at 22:00; Stop 08/01/19 at 21:59; Status DC Sodium Chloride 1,000 ml @ 1,000 mls/hr Q1H PRN IV hypotension; Start 08/01/19 at 09:35; Stop 08/01/19 at 15:34; Status DC Albumin Human 200 ml @ 200 mls/hr 1X PRN PRN IV Hypotension; Start 08/01/19 at 09:45; Stop 08/01/19 at 15:44; Status DC Diphenhydramine HCl (Benadryl) 25 mg 1X PRN PRN IV ITCHING; Start 08/01/19 at 09:45; Stop 08/02/19 at 09:44; Status DC Diphenhydramine HCl (Benadryl) 25 mg 1X PRN PRN IV ITCHING; Start 08/01/19 at 09:45; Stop 08/02/19 at 09:44; Status DC Sodium Chloride 1,000 ml @ 400 mls/hr Q2H30M PRN IV PATENCY; Start 08/01/19 at 09:35; Stop 08/01/19 at 21:34; Status DC Info (PHARMACY MONITORING -- do not chart) 1 each PRN DAILY PRN MC SEE COMMENTS; Start 08/01/19 at 09:45; Status Cancel Sodium Chloride 100 meq/Potassium Phosphate 19 mmol/ Magnesium Sulfate 12 meq/Calcium Gluconate 15 meq/ Multivitamins 10 ml/Chromium/ Copper/Manganese/ Seleni/Zn 0.5 ml/ Insulin Human Regular 40 unit/ Potassium Chloride 20 meq/ Total Parenteral Nutrition/Amino Acids/Dextrose/ Fat Emulsion Intravenous 1,400 ml @ 58.333 mls/ hr TPN CONT IV Last administered on 08/01/19at 22:02; Start 08/01/19 at 22:00; Stop 08/02/19 at 21:59; Status DC Furosemide (Lasix) 40 mg 1X ONCE IVP Last administered on 08/01/19at 14:39; Start 08/01/19 at 14:30; Stop 08/01/19 at 14:31; Status DC Metronidazole 100 ml @ 100 mls/hr Q8HRS IV Last administered on 08/09/19at 06:04; Start 08/02/19 at 10:00; Stop 08/09/19 at 08:10; Status DC Sodium Chloride 1,000 ml @ 1,000 mls/hr Q1H PRN IV hypotension; Start 08/02/19 at 08:00; Stop 08/02/19 at 13:59; Status DC Albumin Human 200 ml @ 200 mls/hr 1X PRN PRN IV Hypotension; Start 08/02/19 at 08:00; Stop 08/02/19 at 13:59; Status DC Sodium Chloride 1,000 ml @ 400 mls/hr Q2H30M PRN IV PATENCY; Start 08/02/19 at 08:00; Stop 08/02/19 at 19:59; Status DC Info (PHARMACY MONITORING -- do not chart) 1 each PRN DAILY PRN MC SEE COMMENTS; Start 08/02/19 at 11:30; Status UNV Info (PHARMACY MONITORING -- do not chart) 1 each PRN DAILY PRN MC SEE COMMENTS; Start 08/02/19 at 11:30; Stop 08/04/19 at 12:13; Status DC Sodium Chloride 100 meq/Potassium Phosphate 19 mmol/ Magnesium Sulfate 12 meq/Calcium Gluconate 15 meq/ Multivitamins 10 ml/Chromium/ Copper/Manganese/ Seleni/Zn 0.5 ml/ Insulin Human Regular 40 unit/ Potassium Chloride 20 meq/ Total Parenteral Nutrition/Amino Acids/Dextrose/ Fat Emulsion Intravenous 1,400 ml @ 58.333 mls/ hr TPN CONT IV Last administered on 08/02/19at 21:52; Start 08/02/19 at 22:00; Stop 08/03/19 at 21:59; Status DC Sodium Chloride (Normal Saline Flush) 10 ml QSHIFT PRN IV AFTER MEDS AND BLOOD DRAWS; Start 08/02/19 at 15:00; Stop 08/30/19 at 11:27; Status DC Sodium Chloride (Normal Saline Flush) 10 ml PRN Q5MIN PRN IV AFTER MEDS AND BLOOD DRAWS; Start 08/02/19 at 15:00 Sodium Chloride (Normal Saline Flush) 20 ml PRN Q5MIN PRN IV AFTER MEDS AND BLOOD DRAWS; Start 08/02/19 at 15:00 Sodium Chloride 100 meq/Potassium Phosphate 19 mmol/ Magnesium Sulfate 12 meq/Calcium Gluconate 15 meq/ Multivitamins 10 ml/Chromium/ Copper/Manganese/ Seleni/Zn 0.5 ml/ Insulin Human Regular 40 unit/ Potassium Chloride 20 meq/ Total Parenteral Nutrition/Amino Acids/Dextrose/ Fat Emulsion Intravenous 1,400 ml @ 58.333 mls/ hr TPN CONT IV Last administered on 08/03/19at 21:20; Start 08/03/19 at 22:00; Stop 08/04/19 at 21:59; Status DC Lidocaine HCl (Buffered Lidocaine 1%) 3 ml STK-MED ONCE .ROUTE ; Start 08/03/19 at 13:16; Stop 08/03/19 at 13:16; Status DC Lidocaine HCl (Buffered Lidocaine 1%) 6 ml 1X ONCE INJ Last administered on 08/03/19at 13:45; Start 08/03/19 at 13:30; Stop 08/03/19 at 13:31; Status DC Albumin Human 100 ml @ 100 mls/hr 1X ONCE IV Last administered on 08/03/19at 15:41; Start 08/03/19 at 15:00; Stop 08/03/19 at 15:59; Status DC Albumin Human 50 ml @ 50 mls/hr 1X ONCE IV Last administered on 08/03/19at 15:00; Start 08/03/19 at 15:00; Stop 08/03/19 at 15:59; Status DC Info (PHARMACY MONITORING -- do not chart) 1 each PRN DAILY PRN MC SEE COMMENTS; Start 08/04/19 at 11:30; Status Cancel Info (PHARMACY MONITORING -- do not chart) 1 each PRN DAILY PRN MC SEE COMMENTS; Start 08/04/19 at 11:30; Status UNV Sodium Chloride 100 meq/Potassium Phosphate 10 mmol/ Magnesium Sulfate 12 meq/Calcium Gluconate 15 meq/ Multivitamins 10 ml/Chromium/ Copper/Manganese/ Seleni/Zn 0.5 ml/ Insulin Human Regular 35 unit/ Potassium Chloride 20 meq/ Total Parenteral Nutrition/Amino Acids/Dextrose/ Fat Emulsion Intravenous 1,400 ml @ 58.333 mls/ hr TPN CONT IV Last administered on 08/04/19at 22:10; Start 08/04/19 at 22:00; Stop 08/05/19 at 21:59; Status DC Sodium Chloride 100 meq/Potassium Phosphate 5 mmol/ Magnesium Sulfate 12 meq/Calcium Gluconate 15 meq/ Multivitamins 10 ml/Chromium/ Copper/Manganese/ Seleni/Zn 0.5 ml/ Insulin Human Regular 35 unit/ Potassium Chloride 20 meq/ Total Parenteral Nutrition/Amino Acids/Dextrose/ Fat Emulsion Intravenous 1,400 ml @ 58.333 mls/ hr TPN CONT IV Last administered on 08/05/19at 22:59; Start 08/05/19 at 22:00; Stop 08/06/19 at 21:59; Status DC Sodium Chloride 1,000 ml @ 1,000 mls/hr Q1H PRN IV hypotension; Start 08/06/19 at 08:27; Stop 08/06/19 at 14:26; Status DC Albumin Human 200 ml @ 200 mls/hr 1X PRN PRN IV Hypotension Last administered on 08/06/19at 09:18; Start 08/06/19 at 08:30; Stop 08/06/19 at 14:29; Status DC Sodium Chloride 1,000 ml @ 400 mls/hr Q2H30M PRN IV PATENCY; Start 08/06/19 at 08:27; Stop 08/06/19 at 20:26; Status DC Info (PHARMACY MONITORING -- do not chart) 1 each PRN DAILY PRN MC SEE COMMENTS; Start 08/06/19 at 08:30; Status Cancel Info (PHARMACY MONITORING -- do not chart) 1 each PRN DAILY PRN MC SEE COMMENTS; Start 08/06/19 at 08:30; Stop 08/14/19 at 13:10; Status DC Sodium Chloride 100 meq/Potassium Chloride 40 meq/ Magnesium Sulfate 15 meq/Calcium Gluconate 15 meq/ Multivitamins 10 ml/Chromium/ Copper/Manganese/ Seleni/Zn 0.5 ml/ Insulin Human Regular 35 unit/ Total Parenteral Nutrition/Amino Acids/Dextrose/ Fat Emulsion Intravenous 1,400 ml @ 58.333 mls/ hr TPN CONT IV Last administered on 08/06/19at 22:00; Start 08/06/19 at 22:00; Stop 08/07/19 at 21:59; Status DC Potassium Chloride/Water 100 ml @ 100 mls/hr 1X ONCE IV Last administered on 08/06/19at 17:28; Start 08/06/19 at 14:45; Stop 08/06/19 at 15:44; Status DC Sodium Chloride 100 meq/Potassium Chloride 40 meq/ Magnesium Sulfate 15 m eq/Calcium Gluconate 15 meq/ Multivitamins 10 ml/Chromium/ Copper/Manganese/ Seleni/Zn 0.5 ml/ Insulin Human Regular 35 unit/ Total Parenteral Nutrition/Amino Acids/Dextrose/ Fat Emulsion Intravenous 1,400 ml @ 58.333 mls/ hr TPN CONT IV Last administered on 08/07/19at 22:46; Start 08/07/19 at 22:00; Stop 08/08/19 at 21:59; Status DC Sodium Chloride 100 meq/Potassium Chloride 40 meq/ Magnesium Sulfate 20 meq/Calcium Gluconate 15 meq/ Multivitamins 10 ml/Chromium/ Copper/Manganese/ Seleni/Zn 0.5 ml/ Insulin Human Regular 35 unit/ Total Parenteral Nutrition/Amino Acids/Dextrose/ Fat Emulsion Intravenous 1,400 ml @ 58.333 mls/ hr TPN CONT IV Last administered on 08/08/19at 22:31; Start 08/08/19 at 22:00; Stop 08/09/19 at 21:59; Status DC Fentanyl Citrate (Fentanyl 2ml Vial) 50 mcg PRN Q2HR PRN IVP PAIN Last administered on 08/15/19at 13:32; Start 08/08/19 at 21:00; Stop 08/16/19 at 12:53; Status DC Fentanyl Citrate (Fentanyl 2ml Vial) 25 mcg PRN Q2HR PRN IVP PAIN; Start 08/08/19 at 21:00; Stop 08/16/19 at 12:54; Status DC Enoxaparin Sodium (Lovenox 100mg Syringe) 100 mg Q12HR SQ ; Start 08/09/19 at 21:00; Status UNV Amino Acids/ Glycerin/ Electrolytes 1,000 ml @ 75 mls/hr [id number] IV ; Start 08/08/19 at 21:15; Status UNV Sodium Chloride 1,000 ml @ 1,000 mls/hr Q1H PRN IV hypotension; Start 08/09/19 at 07:56; Stop 08/09/19 at 13:55; Status DC Albumin Human 200 ml @ 200 mls/hr 1X PRN PRN IV Hypotension Last administered on 08/09/19at 08:40; Start 08/09/19 at 08:00; Stop 08/09/19 at 13:59; Status DC Sodium Chloride 1,000 ml @ 400 mls/hr Q2H30M PRN IV PATENCY; Start 08/09/19 at 07:56; Stop 08/09/19 at 19:55; Status DC Info (PHARMACY MONITORING -- do not chart) 1 each PRN DAILY PRN MC SEE COMMENTS; Start 08/09/19 at 08:00; Status UNV Info (PHARMACY MONITORING -- do not chart) 1 each PRN DAILY PRN MC SEE COMMENTS; Start 08/09/19 at 08:00; Status UNV Daptomycin 430 mg/ Sodium Chloride 50 ml @ 100 mls/hr Q24H IV Last administered on 08/09/19at 12:35; Start 08/09/19 at 09:00; Stop 08/09/19 at 12:49; Status DC Sodium Chloride 100 meq/Potassium Chloride 40 meq/ Magnesium Sulfate 20 meq/Calcium Gluconate 15 meq/ Multivitamins 10 ml/Chromium/ Copper/Manganese/ Seleni/Zn 0.5 ml/ Insulin Human Regular 35 unit/ Total Parenteral Nutrition/Amino Acids/Dextrose/ Fat Emulsion Intravenous 1,400 ml @ 58.333 mls/ hr TPN CONT IV Last administered on 08/09/19at 21:26; Start 08/09/19 at 22:00; Stop 08/10/19 at 21:59; Status DC Daptomycin 430 mg/ Sodium Chloride 50 ml @ 100 mls/hr Q48H IV ; Start 08/11/19 at 09:00; Stop 08/10/19 at 11:55; Status DC Sodium Chloride 100 meq/Potassium Chloride 40 meq/ Magnesium Sulfate 20 meq/Calcium Gluconate 15 meq/ Multivitamins 10 ml/Chromium/ Copper/Manganese/ Seleni/Zn 0.5 ml/ Insulin Human Regular 35 unit/ Total Parenteral Nutriti on/Amino Acids/Dextrose/ Fat Emulsion Intravenous 1,400 ml @ 58.333 mls/ hr TPN CONT IV Last administered on 08/10/19at 22:27; Start 08/10/19 at 22:00; Stop 08/11/19 at 21:59; Status DC Daptomycin 430 mg/ Sodium Chloride 50 ml @ 100 mls/hr Q24H IV Last administered on 08/12/19at 15:07; Start 08/10/19 at 13:00; Stop 08/13/19 at 13:15; Status DC Sodium Chloride 100 meq/Potassium Chloride 40 meq/ Magnesium Sulfate 20 meq/Calcium Gluconate 10 meq/ Multivitamins 10 ml/Chromium/ Copper/Manganese/ Seleni/Zn 0.5 ml/ Insulin Human Regular 35 unit/ Total Parenteral Nutrition/Amino Acids/Dextrose/ Fat Emulsion Intravenous 1,400 ml @ 58.333 mls/ hr TPN CONT IV Last administered on 08/12/19at 00:06; Start 08/11/19 at 22:00; Stop 08/12/19 at 21:59; Status DC Alteplase, Recombinant (Cathflo For Central Catheter Clearance) 1 mg 1X ONCE INT CAT Last administered on 08/12/19at 11:44; Start 08/12/19 at 10:45; Stop 08/12/19 at 10:46; Status DC Ondansetron HCl (Zofran) 4 mg PRN Q6HRS PRN IV NAUSEA/VOMITING; Start 08/15/19 at 07:00; Stop 08/16/19 at 06:59; Status DC Fentanyl Citrate (Fentanyl 2ml Vial) 25 mcg PRN Q5MIN PRN IV MILD PAIN 1-3; S tart 08/15/19 at 07:00; Stop 08/16/19 at 06:59; Status DC Fentanyl Citrate (Fentanyl 2ml Vial) 50 mcg PRN Q5MIN PRN IV MODERATE TO SEVERE PAIN Last administered on 08/15/19at 10:17; Start 08/15/19 at 07:00; Stop 08/16/19 at 06:59; Status DC Ringer's Solution 1,000 ml @ 30 mls/hr Q24H IV ; Start 08/15/19 at 07:00; Stop 08/15/19 at 18:59; Status DC Lidocaine HCl (Xylocaine-Mpf 1% 2ml Vial) 2 ml PRN 1X PRN ID PRIOR TO IV START; Start 08/15/19 at 07:00; Stop 08/16/19 at 06:59; Status DC Prochlorperazine Edisylate (Compazine) 5 mg PACU PRN PRN IV NAUSEA, MRX1; Start 08/15/19 at 07:00; Stop 08/16/19 at 06:59; Status DC Sodium Acetate 50 meq/Potassium Acetate 55 meq/ Magnesium Sulfate 20 meq/Calcium Gluconate 10 meq/ Multivitamins 10 ml/Chromium/ Copper/Manganese/ Seleni/Zn 0.5 ml/ Insulin Human Regular 35 unit/ Total Parenteral Nutrition/Amino Acids/Dextrose/ Fat Emulsion Intravenous 1,400 ml @ 58.333 mls/ hr TPN CONT IV ; Start 08/12/19 at 22:00; Stop 08/12/19 at 14:15; Status DC Sodium Acetate 50 meq/Potassium Acetate 55 meq/ Magnesium Sulfate 20 meq/Calcium Gluconate 10 meq/ Multivitamins 10 ml/Chromium/ Copper/Manganese/ Seleni/Zn 0.5 ml/ Insulin Human Regular 35 unit/ Total Parenteral Nutrition/Amino Acids/Dextrose/ Fat Emulsion Intravenous 1,800 ml @ 75 mls/hr TPN CONT IV Last administered on 08/12/19at 22:38; Start 08/12/19 at 22:00; Stop 08/13/19 at 21:59; Status DC Sodium Chloride 1,000 ml @ 1,000 mls/hr Q1H PRN IV hypotension; Start 08/12/19 at 15:31; Stop 08/12/19 at 21:30; Status DC Diphenhydramine HCl (Benadryl) 25 mg 1X PRN PRN IV ITCHING; Start 08/12/19 at 15:45; Stop 08/13/19 at 15:44; Status DC Diphenhydramine HCl (Benadryl) 25 mg 1X PRN PRN IV ITCHING; Start 08/12/19 at 15:45; Stop 08/13/19 at 15:44; Status DC Sodium Chloride 1,000 ml @ 400 mls/hr Q2H30M PRN IV PATENCY; Start 08/12/19 at 15:31; Stop 08/13/19 at 03:30; Status DC Info (PHARMACY MONITORING -- do not chart) 1 each PRN DAILY PRN MC SEE COMMENTS; Start 08/12/19 at 15:45; Stop 09/13/19 at 14:14; Status DC Sodium Acetate 50 meq/Potassium Acetate 55 meq/ Magnesium Sulfate 20 meq/Calcium Gluconate 10 meq/ Multivitamins 10 ml/Chromium/ Copper/Manganese/ Seleni/Zn 0.5 ml/ Insulin Human Regular 35 unit/ Total Parenteral Nutrition/Amino Acids/Dextrose/ Fat Emulsion Intravenous 1,800 ml @ 75 mls/hr TPN CONT IV Last administered on 08/13/19at 22:03; Start 08/13/19 at 22:00; Stop 08/14/19 at 21:59; Status DC Daptomycin 430 mg/ Sodium Chloride 50 ml @ 100 mls/hr Q24H IV Last administered on 08/18/19at 13:00; Start 08/13/19 at 13:00; Stop 08/18/19 at 20:58; Status DC Heparin Sodium (Porcine) 1000 unit/Sodium Chloride 1,001 ml @ 1,001 mls/hr 1X ONCE IRR ; Start 08/15/19 at 06:00; Stop 08/15/19 at 06:59; Status DC Potassium Acetate 55 meq/Magnesium Sulfate 20 meq/ Calcium Gluconate 10 meq/ Multivitamins 10 ml/Chromium/ Copper/Manganese/ Seleni/Zn 0.5 ml/ Insulin Human Regular 35 unit/ Total Parenteral Nutrition/Amino Acids/Dextrose/ Fat Emulsion Intravenous 1,920 ml @ 80 mls/hr TPN CONT IV Last administered on 08/14/19at 22:10; Start 08/14/19 at 22:00; Stop 08/15/19 at 21:59; Status DC Dexamethasone Sodium Phosphate (Decadron) 4 mg STK-MED ONCE .ROUTE ; Start 08/15/19 at 10:56; Stop 08/15/19 at 10:57; Status DC Ondansetron HCl (Zofran) 4 mg STK-MED ONCE .ROUTE ; Start 08/15/19 at 10:56; Stop 08/15/19 at 10:57; Status DC Rocuronium [place] (Zemuron) 50 mg STK-MED ONCE .ROUTE ; Start 08/15/19 at 10:56; Stop 08/15/19 at 10:57; Status DC Fentanyl Citrate (Fentanyl 2ml Vial) 100 mcg STK-MED ONCE .ROUTE ; Start 08/15/19 at 10:56; Stop 08/15/19 at 10:57; Status DC Bupivacaine HCl/ Epinephrine Bitart (Sensorcain-Epi 0.5%-1:[id number] Mpf) 30 ml STK-MED ONCE .ROUTE Last administered on 08/15/19at 12:01; Start 08/15/19 at 10:58; Stop 08/15/19 at 10:58; Status DC Cellulose (Surgicel Hemostat 2x14) 1 each STK-MED ONCE .ROUTE ; Start 08/15/19 at 10:58; Stop 08/15/19 at 10:59; Status DC Iohexol (Omnipaque 300 Mg/ml) 50 ml STK-MED ONCE .ROUTE ; Start 08/15/19 at 10:58; Stop 08/15/19 at 10:59; Status DC Cellulose (Surgicel Hemostat 4x8) 1 each STK-MED ONCE .ROUTE ; Start 08/15/19 at 10:58; Stop 08/15/19 at 10:59; Status DC Bisacodyl (Dulcolax Supp) 10 mg STK-MED ONCE .ROUTE ; Start 08/15/19 at 10:59; Stop 08/15/19 at 10:59; Status DC Heparin Sodium (Porcine) 1000 unit/Sodium Chloride 1,001 ml @ 1,001 mls/hr 1X ONCE IRR ; Start 08/15/19 at 12:00; Stop 08/15/19 at 12:59; Status DC Propofol 20 ml @ As Directed STK-MED ONCE IV ; Start 08/15/19 at 11:05; Stop 08/15/19 at 11:05; Status DC Sevoflurane (Ultane) 90 ml STK-MED ONCE IH ; Start 08/15/19 at 11:05; Stop 08/15/19 at 11:05; Status DC Sevoflurane (Ultane) 60 ml STK-MED ONCE IH ; Start 08/15/19 at 12:26; Stop 07/20 11/06 at 12:27; Status DC Propofol 20 ml @ As Directed STK-MED ONCE IV ; Start 08/15/19 at 12:26; Stop 08/15/19 at 12:27; Status DC Phenylephrine HCl (PHENYLEPHRINE in 0.9% NACL PF) 1 mg STK-MED ONCE IV ; Start 08/15/19 at 12:34; Stop 08/15/19 at 12:34; Status DC Heparin Sodium (Porcine) (Heparin Sodium) 5,000 unit Q12HR SQ Last administered on 08/24/19at 20:57; Start 08/15/19 at 21:00; Stop 08/25/19 at 09:59; Status DC Sodium Chloride (Normal Saline Flush) 3 ml QSHIFT PRN IV AFTER MEDS AND BLOOD DRAWS; Start 08/15/19 at 13:45 Naloxone HCl (Narcan) 0.4 mg PRN Q2MIN PRN IV SEE INSTRUCTIONS Last administered on 09/24/19at 15:15; Start 08/15/19 at 13:45 Sodium Chloride 1,000 ml @ 25 mls/hr Q24H IV Last administered on 09/13/19at 13:37; Start 08/15/19 at 13:37; Stop 09/16/19 at 13:09; Status DC Naloxone HCl (Narcan) 0.4 mg PRN Q2MIN PRN IV SEE INSTRUCTIONS; Start 08/15/19 at 14:30; Status UNV Sodium Chloride 1,000 ml @ 25 mls/hr Q24H IV ; Start 08/15/19 at 14:30; Status UNV Hydromorphone HCl 30 ml @ 0 mls/hr CONT PRN PRN IV PER PROTOCOL Last administered on 08/20/19at 16:08; Start 08/15/19 at 14:30; Stop 08/22/19 at 08:55; Status DC Potassium Acetate 55 meq/Magnesium Sulfate 20 meq/ Calcium Gluconate 10 meq/ Multivitamins 10 ml/Chromium/ Copper/Manganese/ Seleni/Zn 0.5 ml/ Insulin Human Regular 35 unit/ Total Parenteral Nutrition/Amino Acids/Dextrose/ Fat Emulsion Intravenous 1,920 ml @ 80 mls/hr TPN CONT IV Last administered on 08/15/19at 22:01; Start 08/15/19 at 22:00; Stop 08/16/19 at 21:59; Status DC Bumetanide (Bumex) 2 mg [id number] IV Last administered on 08/19/19at 13:50; Start 08/16/19 at 14:00; Stop 08/20/19 at 14:10; Status DC Meropenem 1 gm/ Sodium Chloride 100 ml @ 200 mls/hr Q8HRS IV Last administered on 09/09/19at 05:53; Start 08/16/19 at 14:00; Stop 09/09/19 at 09:31; Status DC Potassium Acetate 55 meq/Magnesium Sulfate 20 meq/ Calcium Gluconate 10 meq/ Multivitamins 10 ml/Chromium/ Copper/Manganese/ Seleni/Zn 0.5 ml/ Insulin Human Regular 35 unit/ Total Parenteral Nutrition/Amino Acids/Dextrose/ Fat Emulsion Intravenous 1,920 ml @ 80 mls/hr TPN CONT IV Last administered on 08/16/19at 22:02; Start 08/16/19 at 22:00; Stop 08/17/19 at 21:59; Status DC Hydromorphone HCl (Dilaudid Standard FLAT KNITTER) 12 mg STK-MED ONCE IV ; Start 08/15/19 at 14:35; Stop 08/16/19 at 13:53; Status DC Artificial Tears (Artificial Tears) 1 drop PRN Q15MIN PRN OU DRY EYE Last administered on 09/16/19at 10:08; Start 08/17/19 at 05:30 Hydromorphone HCl (Dilaudid Standard FLAT KNITTER) 12 mg STK-MED ONCE IV ; Start 08/16/19 at 12:05; Stop 08/17/19 at 09:15; Status DC Potassium Acetate 65 meq/Magnesium Sulfate 20 meq/ Calcium Gluconate 10 meq/ Multivitamins 10 ml/Chromium/ Copper/Manganese/ Seleni/Zn 0.5 ml/ Insulin Human Regular 30 unit/ Total Parenteral Nutrition/Amino Acids/Dextrose/ Fat Emulsion Intravenous 1,920 ml @ 80 mls/hr TPN CONT IV Last administered on 08/17/19at 22:22; Start 08/17/19 at 22:00; Stop 08/18/19 at 21:59; Status DC Cyclobenzaprine HCl (Flexeril) 10 mg PRN Q6HRS PRN PO MUSCLE SPASMS; Start 08/18/19 at 10:45 Potassium Acetate 55 meq/Magnesium Sulfate 20 meq/ Calcium Gluconate 10 meq/ Multivitamins 10 ml/Chromium/ Copper/Manganese/ Seleni/Zn 0.5 ml/ Insulin Human Regular 30 unit/ Total Parenteral Nutrition/Amino Acids/Dextrose/ Fat Emulsion Intravenous 1,920 ml @ 80 mls/hr TPN CONT IV Last administered on 08/19/19at 01:00; Start 08/18/19 at 22:00; Stop 08/19/19 at 21:59; Status DC Magnesium Sulfate 50 ml @ 25 mls/hr 1X ONCE IV Last administered on 08/18/19at 17:18; Start 08/18/19 at 12:45; Stop 08/18/19 at 14:44; Status DC Potassium Chloride/Water 100 ml @ 100 mls/hr 1X ONCE IV Last administered on 08/19/19at 11:27; Start 08/19/19 at 12:00; Stop 08/19/19 at 12:59; Status DC Hydromorphone HCl (Dilaudid Standard FLAT KNITTER) 12 mg STK-MED ONCE IV ; Start 08/17/19 at 10:50; Stop 08/19/19 at 11:02; Status DC Hydromorphone HCl (Dilaudid Standard FLAT KNITTER) 12 mg STK-MED ONCE IV ; Start 08/18/19 at 13:47; Stop 08/19/19 at 11:03; Status DC Potassium Acetate 30 meq/Magnesium Sulfate 20 meq/ Calcium Gluconate 10 meq/ Multivitamins 10 ml/Chromium/ Copper/Manganese/ Seleni/Zn 0.5 ml/ Insulin Human Regular 30 unit/ Potassium Chloride 30 meq/ Total Parenteral Nutrition/Amino Acids/Dextrose/ Fat Emulsion Intravenous 1,920 ml @ 80 mls/hr TPN CONT IV Last administered on 08/19/19at 22:34; Start 08/19/19 at 22:00; Stop 08/20/19 at 21:59; Status DC Potassium Chloride/Water 100 ml @ 100 mls/hr Q1H IV Last administered on 08/20/19at 13:05; Start 08/20/19 at 07:00; Stop 08/20/19 at 10:59; Status DC Magnesium Sulfate 50 ml @ 25 mls/hr 1X ONCE IV Last administered on 08/20/19at 10:34; Start 08/20/19 at 10:30; Stop 08/20/19 at 12:29; Status DC Potassium Chloride 75 meq/ Magnesium Sulfate 20 meq/Calcium Gluconate 10 meq/ Multivitamins 10 ml/Chromium/ Copper/Manganese/ Seleni/Zn 0.5 ml/ Insulin Human Regular 30 unit/ Total Parenteral Nutrition/Amino Acids/Dextrose/ Fat Emulsion Intravenous 1,920 ml @ 80 mls/hr TPN CONT IV Last administered on 08/20/19at 21:51; Start 08/20/19 at 22:00; Stop 08/21/19 at 22:00; Status DC Potassium Chloride 75 meq/ Magnesium Sulfate 20 meq/Calcium Gluconate 10 meq/ Multivitamins 10 ml/Chromium/ Copper/Manganese/ Seleni/Zn 0.5 ml/ Insulin Human Regular 25 unit/ Total Parenteral Nutrition/Amino Acids/Dextrose/ Fat Emulsion Intravenous 1,920 ml @ 80 mls/hr TPN CONT IV Last administered on 08/21/19at 22:04; Start 08/21/19 at 22:00; Stop 08/22/19 at 21:59; Status DC Hydromorphone HCl (Dilaudid) 0.4 mg PRN Q4HRS PRN IVP PAIN Last administered on 08/22/19at 10:57; Start 08/22/19 at 09:00; Stop 08/22/19 at 18:59; Status DC Micafungin Sodium 100 mg/Dextrose 100 ml @ 100 mls/hr Q24H IV Last administered on 09/13/19at 12:17; Start 08/22/19 at 11:00; Stop 09/14/19 at 09:59; Status DC Daptomycin 485 mg/ Sodium Chloride 50 ml @ 100 mls/hr Q24H IV Last administered on 08/29/19at 13:10; Start 08/22/19 at 11:00; Stop 08/30/19 at 07:44; Status DC Potassium Chloride 75 meq/ Magnesium Sulfate 15 meq/Calcium Gluconate 8 meq/ Multivitamins 10 ml/Chromium/ Copper/Manganese/ Seleni/Zn 0.5 ml/ Insulin Human Regular 25 unit/ Total Parenteral Nutrition/Amino Acids/Dextrose/ Fat Emulsion Intravenous 1,920 ml @ 80 mls/hr TPN CONT IV Last administered on 08/22/19at 23:08; Start 08/22/19 at 22:00; Stop 08/23/19 at 21:59; Status DC Haloperidol Lactate (Haldol Inj) 3 mg 1X ONCE IVP Last administered on 08/22/19at 14:37; Start 08/22/19 at 14:30; Stop 08/22/19 at 14:31; Status DC Hydromorphone HCl (Dilaudid) 1 mg PRN Q4HRS PRN IVP PAIN Last administered on 09/05/19at 06:25; Start 08/22/19 at 19:00; Stop 09/05/19 at 17:10; Status DC Potassium Chloride 75 meq/ Magnesium Sulfate 15 meq/Calcium Gluconate 8 meq/ Multivitamins 10 ml/Chromium/ Copper/Manganese/ Seleni/Zn 0.5 ml/ Insulin Human Regular 20 unit/ Total Parenteral Nutrition/Amino Acids/Dextrose/ Fat Emulsion Intravenous 1,920 ml @ 80 mls/hr TPN CONT IV Last administered on 08/23/19at 22:10; Start 08/23/19 at 22:00; Stop 08/24/19 at 21:59; Status DC Lidocaine HCl (Buffered Lidocaine 1%) 3 ml STK-MED ONCE .ROUTE ; Start 08/24/19 at 11:31; Stop 08/24/19 at 11:31; Status DC Lidocaine HCl (Buffered Lidocaine 1%) 3 ml STK-MED ONCE .ROUTE ; Start 08/24/19 at 12:28; Stop 08/24/19 at 12:29; Status DC Lidocaine HCl (Buffered Lidocaine 1%) 6 ml 1X ONCE INJ Last administered on 08/24/19at 12:53; Start 08/24/19 at 12:45; Stop 08/24/19 at 12:46; Status DC Potassium Chloride 75 meq/ Magnesium Sulfate 15 meq/Calcium Gluconate 8 meq/ Multivitamins 10 ml/Chromium/ Copper/Manganese/ Seleni/Zn 0.5 ml/ Insulin Human Regular 20 unit/ Total Parenteral Nutrition/Amino Acids/Dextrose/ Fat Emulsion Intravenous 1,920 ml @ 80 mls/hr TPN CONT IV Last administered on 08/24/19at 22:00; Start 08/24/19 at 22:00; Stop 08/25/19 at 21:59; Status DC Potassium Chloride 75 meq/ Magnesium Sulfate 15 meq/Calcium Gluconate 8 meq/ Multivitamins 10 ml/Chromium/ Copper/Manganese/ Seleni/Zn 0.5 ml/ Insulin Human Regular 15 unit/ Total Parenteral Nutrition/Amino Acids/Dextrose/ Fat Emulsion Intravenous 1,920 ml @ 80 mls/hr TPN CONT IV Last administered on 08/25/19at 22:28; Start 08/25/19 at 22:00; Stop 08/26/19 at 21:59; Status DC Vecuronium [place] (Norcuron Bolus) 6 mg PRN Q6HRS PRN IV VENT ASYNCHRONY; Start 08/25/19 at 19:15; Stop 08/25/19 at 19:35; Status DC Bumetanide (Bumex) 2 mg 1X ONCE IV Last administered on 08/25/19at 22:09; Start 08/25/19 at 19:45; Stop 08/25/19 at 19:46; Status DC Lidocaine HCl (Buffered Lidocaine 1%) 3 ml STK-MED ONCE .ROUTE ; Start 08/26/19 at 07:59; Stop 08/26/19 at 07:59; Status DC Midazolam HCl (Versed) 5 mg STK-MED ONCE .ROUTE ; Start 08/26/19 at 08:36; Stop 08/26/19 at 08:36; Status DC Fentanyl Citrate (Fentanyl 5ml Vial) 250 mcg STK-MED ONCE .ROUTE ; Start 08/26/19 at 08:36; Stop 08/26/19 at 08:37; Status DC Lidocaine HCl (Buffered Lidocaine 1%) 3 ml 1X ONCE IJ Last administered on 08/26/19at 09:30; Start 08/26/19 at 09:15; Stop 08/26/19 at 09:16; Status DC Midazolam HCl (Versed) 5 mg 1X ONCE IV Last administered on 08/26/19at 09:30; Start 08/26/19 at 09:15; Stop 08/26/19 at 09:16; Status DC Fentanyl Citrate (Fentanyl 5ml Vial) 250 mcg 1X ONCE IV Last administered on 08/26/19at 09:30; Start 08/26/19 at 09:15; Stop 08/26/19 at 09:16; Status DC Bumetanide (Bumex) 2 mg DAILY IV Last administered on 09/05/19at 08:07; Start 08/26/19 at 10:00; Stop 09/05/19 at 17:15; Status DC Potassium Chloride 75 meq/ Magnesium Sulfate 15 meq/ Multivitamins 10 ml/Chromium/ Copper/Manganese/ Seleni/Zn 0.5 ml/ Insulin Human Regular 15 unit/ Total Parenteral Nutrition/Amino Acids/Dextrose/ Fat Emulsion Intravenous 1,920 ml @ 80 mls/hr TPN CONT IV Last administered on 08/26/19at 21:59; Start 08/26/19 at 22:00; Stop 08/27/19 at 21:59; Status DC Metoclopramide HCl (Reglan Vial) 10 mg PRN Q3HRS PRN IVP NAUSEA/VOMITING-3rd choice Last administered on 09/01/19at 04:25; Start 08/27/19 at 16:45 Potassium Chloride 75 meq/ Magnesium Sulfate 15 meq/ Multivitamins 10 ml/Chromium/ Copper/Manganese/ Seleni/Zn 0.5 ml/ Insulin Human Regular 15 unit/ Total Parenteral Nutrition/Amino Acids/Dextrose/ Fat Emulsion Intravenous 1,920 ml @ 80 mls/hr TPN CONT IV Last administered on 08/27/19at 22:41; Start 08/27/19 at 22:00; Stop 08/28/19 at 21:59; Status DC Magnesium Sulfate 50 ml @ 25 mls/hr 1X ONCE IV Last administered on 08/28/19at 10:44; Start 08/28/19 at 09:00; Stop 08/28/19 at 10:59; Status DC Potassium Chloride/Water 100 ml @ 100 mls/hr 1X ONCE IV Last administered on 08/28/19at 09:37; Start 08/28/19 at 09:00; Stop 08/28/19 at 09:59; Status DC Duloxetine HCl (Cymbalta) 30 mg DAILY PO Last administered on 08/29/19at 09:48; Start 08/28/19 at 14:00; Stop 08/31/19 at 10:25; Status DC Potassium Chloride 80 meq/ Magnesium Sulfate 20 meq/ Multivitamins 10 ml/Chromium/ Copper/Manganese/ Seleni/Zn 0.5 ml/ Insulin Human Regular 15 unit/ Total Parenteral Nutrition/Amino Acids/Dextrose/ Fat Emulsion Intravenous 1,920 ml @ 80 mls/hr TPN CONT IV Last administered on 08/28/19at 21:42; Start 08/28/19 at 22:00; Stop 08/29/19 at 21:59; Status DC Potassium Chloride 80 meq/ Magnesium Sulfate 20 meq/ Multivitamins 10 ml/Chromium/ Copper/Manganese/ Seleni/Zn 0.5 ml/ Insulin Human Regular 15 unit/ Total Parenteral Nutrition/Amino Acids/Dextrose/ Fat Emulsion Intravenous 1,920 ml @ 80 mls/hr TPN CONT IV Last administered on 08/29/19at 22:20; Start 08/29/19 at 22:00; Stop 08/30/19 at 21:59; Status DC Lidocaine HCl (Buffered Lidocaine 1%) 3 ml STK-MED ONCE .ROUTE ; Start 08/30/19 at 09:54; Stop 08/30/19 at 09:55; Status DC Hydromorphone HCl (Dilaudid Standard FLAT KNITTER) 12 mg STK-MED ONCE IV ; Start 08/19/19 at 15:50; Stop 08/30/19 at 11:24; Status DC Potassium Chloride 80 meq/ Magnesium Sulfate 20 meq/ Multivitamins 10 ml/Chromium/ Copper/Manganese/ Seleni/Zn 0.5 ml/ Insulin Human Regular 15 unit/ Total Parenteral Nutrition/Amino Acids/Dextrose/ Fat Emulsion Intravenous 1,920 ml @ 80 mls/hr TPN CONT IV Last administered on 08/30/19at 21:40; Start 08/30/19 at 22:00; Stop 08/31/19 at 21:59; Status DC Lidocaine HCl (Buffered Lidocaine 1%) 6 ml 1X ONCE INJ Last administered on 08/30/19at 14:15; Start 08/30/19 at 14:15; Stop 08/30/19 at 14:16; Status DC Potassium Chloride 80 meq/ Magnesium Sulfate 20 meq/ Multivitamins 10 ml/Chromium/ Copper/Manganese/ Seleni/Zn 1 ml/ Insulin Human Regular 15 unit/ Total Parenteral Nutrition/Amino Acids/Dextrose/ Fat Emulsion Intravenous 1,920 ml @ 80 mls/hr TPN CONT IV Last administered on 08/31/19at 22:04; Start 08/31/19 at 22:00; Stop 09/01/19 at 21:59; Status DC Potassium Chloride/Water 100 ml @ 100 mls/hr 1X ONCE IV Last administered on 09/01/19at 11:34; Start 09/01/19 at 11:00; Stop 09/01/19 at 11:59; Status DC Potassium Chloride 90 meq/ Magnesium Sulfate 20 meq/ Multivitamins 10 ml/Chromium/ Copper/Manganese/ Seleni/Zn 1 ml/ Insulin Human Regular 15 unit/ Total Parenteral Nutrition/Amino Acids/Dextrose/ Fat Emulsion Intravenous 1,920 ml @ 80 mls/hr TPN CONT IV Last administered on 09/01/19at 22:57; Start 09/01/19 at 22:00; Stop 09/02/19 at 21:59; Status DC Potassium Chloride 90 meq/ Magnesium Sulfate 20 meq/ Multivitamins 10 ml/Chromium/ Copper/Manganese/ Seleni/Zn 1 ml/ Insulin Human Regular 15 unit/ Total Parenteral Nutrition/Amino Acids/Dextrose/ Fat Emulsion Intravenous 1,920 ml @ 80 mls/hr TPN CONT IV Last administered on 09/02/19at 22:48; Start 09/02/19 at 22:00; Stop 09/03/19 at 21:59; Status DC Potassium Chloride 90 meq/ Magnesium Sulfate 20 meq/ Multivitamins 10 ml/Chromium/ Copper/Manganese/ Seleni/Zn 1 ml/ Insulin Human Regular 15 unit/ Total Parenteral Nutrition/Amino Acids/Dextrose/ Fat Emulsion Intravenous 1,890 ml @ 78.75 mls/ hr TPN CONT IV Last administered on 09/03/19at 22:15; Start 09/03/19 at 22:00; Stop 09/04/19 at 21:59; Status DC Linezolid/Dextrose 300 ml @ 300 mls/hr Q12HR IV Last administered on 09/06/19at 21:08; Start 09/04/19 at 09:00; Stop 09/07/19 at 08:11; Status DC Daptomycin 450 mg/ Sodium Chloride 50 ml @ 100 mls/hr Q24H IV Last administered on 09/07/19at 09:25; Start 09/04/19 at 09:00; Stop 09/08/19 at 08:30; Status DC Potassium Chloride 90 meq/ Magnesium Sulfate 20 meq/ Multivitamins 10 ml/Chromium/ Copper/Manganese/ Seleni/Zn 1 ml/ Insulin Human Regular 15 unit/ Total Parenteral Nutrition/Amino Acids/Dextrose/ Fat Emulsion Intravenous 1,890 ml @ 78.75 mls/ hr TPN CONT IV Last administered on 09/04/19at 21:34; Start 09/04/19 at 22:00; Stop 09/05/19 at 21:59; Status DC Lorazepam (Ativan Inj) 2 mg STK-MED ONCE .ROUTE ; Start 09/04/19 at 14:58; Stop 09/04/19 at 14:58; Status DC Metoprolol Tartrate (Lopressor Vial) 5 mg 1X ONCE IVP Last administered on 09/04/19at 15:31; Start 09/04/19 at 15:15; Stop 09/04/19 at 15:16; Status DC Lorazepam (Ativan Inj) 2 mg 1X ONCE IVP Last administered on 09/04/19at 15:30; Start 09/04/19 at 15:15; Stop 09/04/19 at 15:16; Status DC Enoxaparin Sodium (Lovenox 40mg Syringe) 40 mg Q24H SQ Last administered on 09/23/19at 17:44; Start 09/04/19 at 17:00; Stop 09/25/19 at 06:50; Status DC Lorazepam (Ativan Inj) 1 mg PRN Q4HRS PRN IVP ANXIETY / AGITATION MILD-MOD Last administered on 09/18/19at 15:55; Start 09/04/19 at 19:15; Stop 09/20/19 at 11:45; Status DC Lorazepam (Ativan Inj) 2 mg PRN Q4HRS PRN IVP ANXIETY / AGITATION SEVERE Last administered on 09/19/19at 07:55; Start 09/04/19 at 19:15; Stop 09/20/19 at 11:45; Status DC Fentanyl Citrate (Fentanyl 2ml Vial) 50 mcg PRN Q4HRS PRN IVP SEVERE PAIN Last administered on 09/26/19at 00:52; Start 09/05/19 at 13:15 Fentanyl Citrate (Fentanyl 2ml Vial) 25 mcg PRN Q4HRS PRN IVP MODERATE PAIN Last administered on 09/24/19at 21:55; Start 09/05/19 at 13:15 Potassium Chloride 90 meq/ Magnesium Sulfate 20 meq/ Multivitamins 10 ml/Chromium/ Copper/Manganese/ Seleni/Zn 1 ml/ Insulin Human Regular 15 unit/ Total Parenteral Nutrition/Amino Acids/Dextrose/ Fat Emulsion Intravenous 1,890 ml @ 78.75 mls/ hr TPN CONT IV Last administered on 09/05/19at 22:18; Start 09/05/19 at 22:00; Stop 09/06/19 at 21:59; Status DC Furosemide (Lasix) 40 mg 1X ONCE IVP Last administered on 09/05/19at 21:51; Start 09/05/19 at 21:45; Stop 09/05/19 at 21:48; Status DC Albumin Human 100 ml @ 100 mls/hr 1X PRN PRN IV SEE COMMENTS; Start 09/06/19 at 01:30 Furosemide (Lasix) 40 mg [id number] IVP Last administered on 09/21/19at 08:04; Start 09/06/19 at 14:00; Stop 09/21/19 at 13:07; Status DC Potassium Chloride 90 meq/ Magnesium Sulfate 20 meq/ Multivitamins 10 ml/Chromium/ Copper/Manganese/ Seleni/Zn 1 ml/ Insulin Human Regular 15 unit/ Total Parenteral Nutrition/Amino Acids/Dextrose/ Fat Emulsion Intravenous 1,800 ml @ 75 mls/hr TPN CONT IV Last administered on 09/06/19at 22:31; Start 09/06/19 at 22:00; Stop 09/07/19 at 21:59; Status DC Potassium Chloride 90 meq/ Magnesium Sulfate 20 meq/ Multivitamins 10 ml/Chromium/ Copper/Manganese/ Seleni/Zn 1 ml/ Insulin Human Regular 15 unit/ Total Parenteral Nutrition/Amino Acids/Dextrose/ Fat Emulsion Intravenous 1,800 ml @ 75 mls/hr TPN CONT IV Last administered on 09/07/19at 22:28; Start 09/07/19 at 22:00; Stop 09/08/19 at 21:59; Status DC Potassium Chloride 110 meq/ Magnesium Sulfate 20 meq/ Multivitamins 10 ml/Chromium/ Copper/Manganese/ Seleni/Zn 1 ml/ Insulin Human Regular 15 unit/ Total Parenteral Nutrition/Amino Acids/Dextrose/ Fat Emulsion Intravenous 1,800 ml @ 75 mls/hr TPN CONT IV Last administered on 09/08/19at 22:01; Start 09/08/19 at 22:00; Stop 09/09/19 at 21:59; Status DC Saliva Substitute (Biotene Moisturizing Mouth) 2 spray PRN Q15MIN PRN PO DRY MOUTH; Start 09/08/19 at 11:00 Potassium Chloride 110 meq/ Magnesium Sulfate 20 meq/ Multivitamins 10 ml/Chromium/ Copper/Manganese/ Seleni/Zn 1 ml/ Insulin Human Regular 15 unit/ Total Parenteral Nutrition/Amino Acids/Dextrose/ Fat Emulsion Intravenous 1,800 ml @ 75 mls/hr TPN CONT IV Last administered on 09/09/19at 22:21; Start 09/09/19 at 22:00; Stop 09/10/19 at 21:59; Status DC Potassium Chloride 110 meq/ Magnesium Sulfate 20 meq/ Multivitamins 10 ml/Chromium/ Copper/Manganese/ Seleni/Zn 1 ml/ Insulin Human Regular 15 unit/ Total Parenteral Nutrition/Amino Acids/Dextrose/ Fat Emulsion Intravenous 1,800 ml @ 75 mls/hr TPN CONT IV Last administered on 09/10/19at 22:04; Start 09/10/19 at 22:00; Stop 09/11/19 at 21:59; Status DC Potassium Chloride 110 meq/ Magnesium Sulfate 20 meq/ Multivitamins 10 ml/Chromium/ Copper/Manganese/ Seleni/Zn 1 ml/ Insulin Human Regular 15 unit/ Total Parenteral Nutrition/Amino Acids/Dextrose/ Fat Emulsion Intravenous 1,800 ml @ 75 mls/hr TPN CONT IV Last administered on 09/11/19at 22:48; Start 09/11/19 at 22:00; Stop 09/12/19 at 21:59; Status DC Potassium Chloride 70 meq/ Magnesium Sulfate 20 meq/ Multivitamins 10 ml/Chromium/ Copper/Manganese/ Seleni/Zn 1 ml/ Insulin Human Regular 15 unit/ Total Parenteral Nutrition/Amino Acids/Dextrose/ Fat Emulsion Intravenous 1,800 ml @ 75 mls/hr TPN CONT IV Last administered on 09/12/19at 21:39; Start 09/12/19 at 22:00; Stop 09/13/19 at 21:59; Status DC Meropenem 500 mg/ Sodium Chloride 50 ml @ 100 mls/hr Q6HRS IV Last a dministered on 09/14/19at 06:02; Start 09/12/19 at 18:00; Stop 09/14/19 at 09:59; Status DC Barium Sulfate (Varibar Thin Liquid Apple) 148 gm 1X ONCE PO ; Start 09/13/19 at 11:45; Stop 09/13/19 at 11:49; Status DC Potassium Chloride 70 meq/ Magnesium Sulfate 20 meq/ Multivitamins 10 ml/Chromium/ Copper/Manganese/ Seleni/Zn 1 ml/ Insulin Human Regular 15 unit/ Total Parenteral Nutrition/Amino Acids/Dextrose/ Fat Emulsion Intravenous 1,800 ml @ 75 mls/hr TPN CONT IV Last administered on 09/13/19at 22:27; Start 09/13/19 at 22:00; Stop 09/14/19 at 21:59; Status DC Piperacillin Sod/ Tazobactam Sod 3.375 gm/Sodium Chloride 50 ml @ 100 mls/hr Q6HRS IV Last administered on 09/22/19at 06:10; Start 09/14/19 at 12:00; Stop 09/22/19 at 07:26; Status DC Potassium Chloride 70 meq/ Magnesium Sulfate 20 meq/ Multivitamins 10 ml/Chromium/ Copper/Manganese/ Seleni/Zn 1 ml/ Insulin Human Regular 15 unit/ Total Parenteral Nutrition/Amino Acids/Dextrose/ Fat Emulsion Intravenous 1,800 ml @ 75 mls/hr TPN CONT IV Last administered on 09/14/19at 22:03; Start 09/14/19 at 22:00; Stop 09/15/19 at 21:59; Status DC Potassium Chloride 70 meq/ Magnesium Sulfate 20 meq/ Multivitamins 10 ml/Chromium/ Copper/Manganese/ Seleni/Zn 1 ml/ Insulin Human Regular 15 unit/ Total Parenteral Nutrition/Amino Acids/Dextrose/ Fat Emulsion Intravenous 1,800 ml @ 75 mls/hr TPN CONT IV Last administered on 09/15/19at 22:33; Start 09/15/19 at 22:00; Stop 09/16/19 at 21:59; Status DC Potassium Chloride 70 meq/ Magnesium Sulfate 20 meq/ Multivitamins 10 ml/Chromium/ Copper/Manganese/ Seleni/Zn 1 ml/ Insulin Human Regular 15 unit/ Total Parenteral Nutrition/Amino Acids/Dextrose/ Fat Emulsion Intravenous 1,800 ml @ 75 mls/hr TPN CONT IV Last administered on 09/16/19at 23:13; Start 09/16/19 at 22:00; Stop 09/17/19 at 21:59; Status DC Potassium Chloride 80 meq/ Magnesium Sulfate 20 meq/ Multivitamins 10 ml/Chromium/ Copper/Manganese/ Seleni/Zn 1 ml/ Insulin Human Regular 15 unit/ Total Parenteral Nutrition/Amino Acids/Dextrose/ Fat Emulsion Intravenous 1,800 ml @ 75 mls/hr TPN CONT IV Last administered on 09/17/19at 22:30; Start 09/17/19 at 22:00; Stop 09/18/19 at 21:59; Status DC Potassium Chloride 80 meq/ Magnesium Sulfate 20 meq/ Multivitamins 10 ml/Chromium/ Copper/Manganese/ Seleni/Zn 1 ml/ Insulin Human Regular 15 unit/ Total Parenteral Nutrition/Amino Acids/Dextrose/ Fat Emulsion Intravenous 1,800 ml @ 75 mls/hr TPN CONT IV Last administered on 09/18/19at 21:54; Start 09/18/19 at 22:00; Stop 09/19/19 at 21:59; Status DC Potassium Chloride/Water 100 ml @ 100 mls/hr 1X ONCE IV Last administered on 09/19/19at 10:15; Start 09/19/19 at 10:00; Stop 09/19/19 at 10:59; Status DC Potassium Chloride 90 meq/ Magnesium Sulfate 20 meq/ Multivitamins 10 ml/Chromium/ Copper/Manganese/ Seleni/Zn 1 ml/ Insulin Human Regular 20 unit/ Total Parenteral Nutrition/Amino Acids/Dextrose/ Fat Emulsion Intravenous 1,800 ml @ 75 mls/hr TPN CONT IV Last administered on 09/19/19at 22:28; Start 09/19/19 at 22:00; Stop 09/20/19 at 21:59; Status DC Potassium Chloride 90 meq/ Magnesium Sulfate 20 meq/ Multivitamins 10 ml/Chromium/ Copper/Manganese/ Seleni/Zn 1 ml/ Insulin Human Regular 20 unit/ Total Parenteral Nutrition/Amino Acids/Dextrose/ Fat Emulsion Intravenous 1,800 ml @ 75 mls/hr TPN CONT IV Last administered on 09/20/19at 22:08; Start 09/20/19 at 22:00; Stop 09/21/19 at 21:59; Status DC Lorazepam (Ativan Inj) 0.25 mg PRN Q4HRS PRN IVP ANXIETY / AGITATION Last administered on 09/21/19at 07:55; Start 09/21/19 at 07:30 Potassium Chloride 90 meq/ Magnesium Sulfate 20 meq/ Multivitamins 10 ml/Chromium/ Copper/Manganese/ Seleni/Zn 1 ml/ Insulin Human Regular 20 unit/ Total Parenteral Nutrition/Amino Acids/Dextrose/ Fat Emulsion Intravenous 1,800 ml @ 75 mls/hr TPN CONT IV Last administered on 09/21/19at 23:13; Start 09/21/19 at 22:00; Stop 09/22/19 at 21:59; Status DC Furosemide (Lasix) 40 mg DAILY IVP Last administered on 09/23/19at 11:14; Start 09/21/19 at 13:30; Stop 09/25/19 at 09:12; Status DC Fluoxetine HCl (PROzac) 20 mg QHS PEG Last administered on 09/24/19at 21:47; Start 09/22/19 at 21:00 Fentanyl (Duragesic 50mcg/ Hr Patch) 1 patch Q72H TD Last administered on 09/22/19at 21:22; Start 09/22/19 at 21:00 Potassium Chloride 40 meq/ Potassium Acetate 60 meq/Magnesium Sulfate 10 meq/ Multivitamins 10 ml/Chromium/ Copper/Manganese/ Seleni/Zn 1 ml/ Insulin Human Regular 20 unit/ Total Parenteral Nutrition/Amino Acids/Dextrose/ Fat Emulsion Intravenous 1,800 ml @ 75 mls/hr TPN CONT IV Last administered on 09/23/19at 00:03; Start 09/22/19 at 22:00; Stop 09/23/19 at 21:59; Status DC Potassium Acetate 80 meq/Magnesium Sulfate 5 meq/ Multivitamins 10 ml/Chromium/ Copper/Manganese/ Seleni/Zn 1 ml/ Insulin Human Regular 20 unit/ Total Parenteral Nutrition/Amino Acids/Dextrose/ Fat Emulsion Intravenous 1,920 ml @ 80 mls/hr TPN CONT IV Last administered on 09/23/19at 21:59; Start 09/23/19 at 22:00; Stop 09/24/19 at 21:59; Status DC Potassium Acetate 60 meq/Magnesium Sulfate 5 meq/ Multivitamins 10 ml/Chromium/ Copper/Manganese/ Seleni/Zn 1 ml/ Insulin Human Regular 30 unit/ Total Parenteral Nutrition/Amino Acids/Dextrose/ Fat Emulsion Intravenous 1,920 ml @ 80 mls/hr TPN CONT IV Last administered on 09/24/19at 21:54; Start 09/24/19 at 22:00; Stop 09/25/19 at 21:59; Status DC Norepinephrine Bitartrate 8 mg/ Dextrose 258 ml @ 13.332 mls/ hr CONT PRN IV PER PROTOCOL Last administered on 09/25/19at 21:46; Start 09/25/19 at 06:30 Albumin Human 500 ml @ 125 mls/hr 1X ONCE IV Last administered on 09/25/19at 08:10; Start 09/25/19 at 08:15; Stop 09/25/19 at 12:14; Status DC Potassium Acetate 40 meq/Magnesium Sulfate 5 meq/ Multivitamins 10 ml/Chromium/ Copper/Manganese/ Seleni/Zn 1 ml/ Insulin Human Regular 30 unit/ Total Parenteral Nutrition/Amino Acids/Dextrose/ Fat Emulsion Intravenous 1,920 ml @ 80 mls/hr TPN CONT IV Last administered on 09/25/19at 22:23; Start 09/25/19 at 22:00; Stop 09/26/19 at 21:59 Meropenem 1 gm/ Sodium Chloride 100 ml @ 200 mls/hr Q8HRS IV ; Start 09/25/19 at 14:00; Status Cancel Meropenem 1 gm/ Sodium Chloride 100 ml @ 200 mls/hr Q8HRS IV Last administered on 09/25/19at 11:04; Start 09/25/19 at 10:00; Stop 09/25/19 at 13:00; Status DC Meropenem 1 gm/ Sodium Chloride 100 ml @ 200 mls/hr Q12HR IV Last administered on 09/26/19at 07:48; Start 09/25/19 at 21:00 Sodium Chloride 1,000 ml @ 1,000 mls/hr 1X ONCE IV Last administered on 09/25/19at 11:06; Start 09/25/19 at 10:45; Stop 09/25/19 at 11:44; Status DC Micafungin Sodium 100 mg/Dextrose 100 ml @ 100 mls/hr Q24H IV Last administered on 09/25/19at 14:12; Start 09/25/19 at 11:00 Daptomycin 410 mg/ Sodium Chloride 50 ml @ 100 mls/hr Q24H IV Last administered on 09/25/19at 14:14; Start 09/25/19 at 14:00 Midazolam HCl (Versed) 2 mg STK-MED ONCE .ROUTE ; Start 09/25/19 at 14:47; Stop 09/25/19 at 14:48; Status DC Fentanyl Citrate (Fentanyl 2ml Vial) 100 mcg STK-MED ONCE .ROUTE ; Start 09/25/19 at 14:47; Stop 09/25/19 at 14:48; Status DC Flumazenil (Romazicon) 0.5 mg STK-MED ONCE IV ; Start 09/25/19 at 14:48; Stop 09/25/19 at 14:48; Status DC Naloxone HCl (Narcan) 0.4 mg STK-MED ONCE .ROUTE ; Start 09/25/19 at 14:48; Stop 09/25/19 at 14:48; Status DC Lidocaine HCl (Lidocaine 1% 20ml Vial) 20 ml STK-MED ONCE .ROUTE ; Start 09/25/19 at 14:48; Stop 09/25/19 at 14:48; Status DC Midazolam HCl (Versed) 2 mg 1X ONCE IV Last administered on 09/25/19at 15:28; Start 09/25/19 at 15:00; Stop 09/25/19 at 15:01; Status DC Fentanyl Citrate (Fentanyl 2ml Vial) 100 mcg 1X ONCE IV Last administered on 09/25/19at 15:28; Start 09/25/19 at 15:00; Stop 09/25/19 at 15:01; Status DC Lidocaine HCl (Lidocaine 1% 20ml Vial) 20 ml 1X ONCE INJ Last administered on 09/25/19at 15:30; Start 09/25/19 at 15:00; Stop 09/25/19 at 15:01; Status DC Sodium Chloride 1,000 ml @ 100 mls/hr Q10H IV Last administered on 09/26/19at 02:31; Start 09/25/19 at 20:00 Sodium Bicarbonate (Sodium Bicarb Adult 8.4% Syr) 50 meq 1X ONCE IV Last administered on 09/25/19at 21:47; Start 09/25/19 at 22:00; Stop 09/25/19 at 22:01; Status DC Active Scripts Active Reported Bisoprolol Fumarate 5 Mg Tablet 10 Mg PO DAILY Vitals/I & O Vital Sign - Last 24 Hours 09/25/19 09/25/19 09/25/19 09/25/19 09:00 09:48 10:00 10:05 Temp 100.2 100.2 100.2 100.2 Pulse 130 150 130 150 Resp 28 B/P (MAP) 95/60 (72) 116/72 106/69 (81) 106/72 Pulse Ox 100 100 O2 Delivery Venturi Mask Venturi Mask O2 Flow Rate 15.0 15.0 09/25/19 09/25/19 09/25/19 09/25/19 10:20 10:35 11:00 11:33 Temp 100.2 100.3 100.2 100.2 100.3 100.2 Pulse 148 148 133 148 Resp B/P (MAP) 102/68 105/58 113/66 (82) 102/53 Pulse Ox 100 O2 Delivery Venturi Mask O2 Flow Rate 15.0 09/24/ 6/09/24/09/25/19 12:00 12:00 14:39 15:09 Temp 98.6 98.6 Pulse 134 Resp 30 B/P (MAP) 119/62 (81) Pulse Ox 100 100 99 O2 Delivery Venturi Mask Venturi Mask Venturi Mask Venturi Mask O2 Flow Rate 15.0 15.0 15.0 15.0 09/24/ 6 6/09/25/19 15:28 15:28 15:30 15:35 Pulse 150 150 148 Resp 26 B/P (MAP) 98/46 (63) 101/46 (64) Pulse Ox 94 95 95 O2 Delivery Venturi Mask Venturi Mask Venturi Mask O2 Flow Rate 15.0 15.0 15.0 09/24/ 6/09/24/09/25/19 15:40 15:45 15:50 15:55 Pulse 148 146 147 146 Resp 28 28 B/P (MAP) 106/50 (68) 88/42 (57) 98/56 (70) 108/56 (73) Pulse Ox 96 94 96 97 O2 Delivery Venturi Mask Venturi Mask Venturi Mask Venturi Mask O2 Flow Rate 15.0 15.0 15.0 15.0 09/24/ 6/ 6/09/25/19 16:00 16:00 16:05 16:10 Pulse 146 147 147 Resp B/P (MAP) 104/49 (67) 105/51 (69) 110/43 (65) Pulse Ox 97 99 100 O2 Delivery Venturi Mask Venturi Mask Venturi Mask Venturi Mask O2 Flow Rate 15.0 15.0 15.0 15.0 09/24/09/24/09/24/09/25/19 16:15 16:20 16:25 16:30 Pulse 147 146 145 145 Resp B/P (MAP) 113/52 (72) 112/52 (72) 106/51 (69) 107/52 (70) Pulse Ox 100 100 99 99 O2 Delivery Venturi Mask Venturi Mask Venturi Mask Venturi Mask O2 Flow Rate 15.0 15.0 15.0 15.0 6/7/20 6/7/20 6/7/20 6/7/20 16:35 16:40 16:45 16:50 Pulse 144 144 145 143 Resp 26 24 26 25 B/P (MAP) 106/50 (68) 108/53 (71) 107/52 (70) 103/51 (68) Pulse Ox 99 99 100 100 O2 Delivery Venturi Mask Venturi Mask Venturi Mask Venturi Mask O2 Flow Rate 15.0 15.0 15.0 15.0 09/25/19 09/25/19 09/25/19 09/25/19 16:55 17:00 17:05 17:10 Pulse 143 141 141 140 Resp 25 24 25 B/P (MAP) 108/54 (72) 98/52 (67) 103/54 (70) 110/53 (72) Pulse Ox 100 100 100 99 O2 Delivery Venturi Mask Venturi Mask Venturi Mask Venturi Mask O2 Flow Rate 15.0 15.0 15.0 15.0 09/25/19 09/25/19 09/25/19 09/25/19 17:15 17:20 17:25 17:36 Pulse 139 138 136 136 Resp 25 26 26 B/P (MAP) 80/53 (62) 104/55 (71) 107/52 (70) Pulse Ox 99 100 96 99 O2 Delivery Venturi Mask Venturi Mask Venturi Mask Venturi Mask O2 Flow Rate 15.0 15.0 15.0 15.0 09/25/19 09/25/19 09/25/19 09/25/19 19:00 19:32 20:00 20:00 Temp 98.8 98.8 Pulse 126 124 Resp 22 18 B/P (MAP) 106/54 (71) 110/56 (74) 109/70 (83) Pulse Ox 99 99 100 O2 Delivery Venturi Mask AVAPS ON V60 BiPAP/CPAP Bi-pap 09/25/19 09/25/19 09/25/19 09/26/19 21:00 22:00 23:00 00:00 Temp 98.4 98.4 Pulse 114 88 98 72 Resp 18 18 18 20 B/P (MAP) 102/50 (67) 152/74 (100) 140/74 (96) 166/80 (108) 136/77 (96) 164/89 (114) Pulse Ox 100 100 100 100 O2 Delivery BiPAP/CPAP BiPAP/CPAP BiPAP/CPAP BiPAP/CPAP 09/26/19 09/26/19 09/26/19 09/26/19 00:00 00:16 00:52 01:00 Pulse 90 Resp 18 18 B/P (MAP) 138/72 (94) Pulse Ox 99 100 100 O2 Delivery Bi-pap AVAPS ON V60 BiPAP/CPAP BiPAP/CPAP 09/26/19 09/26/19 09/26/19 09/26/19 02:00 02:10 03:00 04:00 Pulse 112 100 Resp 18 18 B/P (MAP) 128/54 (78) 134/70 (91) Pulse Ox 100 99 100 O2 Delivery BiPAP/CPAP AVAPS ON V60 BiPAP/CPAP Bi-pap 09/26/19 09/26/19 09/26/19 09/26/19 04:00 04:31 05:00 05:50 Temp 98.8 98.8 Pulse 93 90 Resp 18 18 B/P (MAP) 139/72 (94) 136/72 (93) Pulse Ox 100 99 100 99 O2 Delivery BiPAP/CPAP AVAPS ON V60 BiPAP/CPAP AVAPS ON V60 09/26/19 09/26/19 09/26/19 09/26/19 06:00 07:00 07:46 08:00 Temp 97.7 97.7 Pulse 96 100 99 Resp 18 18 18 B/P (MAP) 124/64 (84) 102/54 (70) 104/56 (72) Pulse Ox 100 100 99 100 O2 Delivery BiPAP/CPAP BiPAP/CPAP AVAPS ON V60 BiPAP/CPAP 09/26/19 09/26/19 08:00 08:40 O2 Delivery Bi-pap AVAPS ON V60 Intake and Output 09/25/19 09/25/19 09/26/19 15:00 23:00 07:00 Intake Total 1035 ml 8163 ml 1563 ml Output Total 335 ml 945 ml 990 ml Balance 700 ml 7218 ml 573 ml Justicifation of Admission Dx: Justifications for Admission: Justification of Admission Dx: Yes ABI AHN MD Sep 26, 2019 09:01
[2019-09-26 09:54] LABS: % BANDS 25 % (0-9); % LYMPHS 8 % (24-48); % MONOS 4 % (0-10); % SEGS 63 % (35-66)
[2019-09-26 09:56] LABS: ANISOCYTOSIS SLIGHT; PLT ESTIMATE ADEQUATE (ADEQUATE); TOXIC GRANULATION PRESENT
[2019-09-26] MEDS: PROCHLORPERAZINE 10 MG/2 ML VIAL. IV PRN (10:07)
[2019-09-26] MEDS: ONDANSETRON PF 4 MG/2 ML VIAL. IV PRN ×3 (10:07→21:08)
--- NOTE | 2019-09-26 10:52 | PDOC ---
SURGICAL PROGRESS NOTE Subjective off pressors drains placed by IR--blood drainage Vital Signs Vital Signs Date Time Temp Pulse Resp B/P (MAP) Pulse Ox O2 Delivery O2 Flow Rate FiO2 09/26/19 10:00 97 20 99/54 (69) 100 BiPAP/CPAP 09/26/19 08:00 97.7 97.7 09/25/19 17:36 15.0 I&O Intake and Output 09/26/19 07:00 Intake Total 77813 ml Output Total 2270 ml Balance 8491 ml Intake Oral 0 ml IV Total 9666 ml Blood Product IV Normal Saline Flush 1095 ml Output Urine Total 1405 ml Emesis 150 ml Drainage Total 715 ml General: Alert, Cooperative Abdomen: Soft, Other (drains with bloody drainage) Labs Laboratory Tests Test 09/24/19 13:06 09/24/19 13:53 09/24/19 16:30 09/24/19 18:12 White Blood Count 16.9 x10^3/uL (4.0-11.0) Red Blood Count 2.48 x10^6/uL (3.50-5.40) Hemoglobin 7.2 g/dL (12.0-15.5) Hematocrit 22.1 % (36.0-47.0) Mean Corpuscular Volume 89 fL (79-100) Mean Corpuscular Hemoglobin 29 pg (25-35) Mean Corpuscular Hemoglobin Concent 33 g/dL (31-37) Red Cell Distribution Width 19.5 % (11.5-14.5) Platelet Count 448 x10^3/uL (140-400) Glucose (Fingerstick) 216 mg/dL (70-99) 199 mg/dL (70-99) O2 Saturation 82 % (92-99) Arterial Blood pH 7.36 (7.35-7.45) Arterial Blood pCO2 at Patient Temp 39 mmHg (35-46) Arterial Blood pO2 at Patient Temp 53 mmHg (75-108) Arterial Blood HCO3 22 mmol/L (21-28) Arterial Blood Base Excess -4 mmol/L (-3-3) FiO2 21 Test 09/24/19 18:24 09/25/19 00:27 09/25/19 05:15 09/25/19 06:50 White Blood Count 18.7 x10^3/uL (4.0-11.0) 20.0 x10^3/uL (4.0-11.0) Red Blood Count 3.07 x10^6/uL (3.50-5.40) 3.06 x10^6/uL (3.50-5.40) Hemoglobin 9.1 g/dL (12.0-15.5) 8.7 g/dL (12.0-15.5) Hematocrit 27.2 % (36.0-47.0) 27.3 % (36.0-47.0) Mean Corpuscular Volume 89 fL (79-100) 89 fL (79-100) Mean Corpuscular Hemoglobin 30 pg (25-35) 29 pg (25-35) Mean Corpuscular Hemoglobin Concent 33 g/dL (31-37) 32 g/dL (31-37) Red Cell Distribution Width 18.0 % (11.5-14.5) 18.5 % (11.5-14.5) Platelet Count 476 x10^3/uL (140-400) 451 x10^3/uL (140-400) Glucose (Fingerstick) 247 mg/dL (70-99) Neutrophils (%) (Auto) 88 % (31-73) Lymphocytes (%) (Auto) 8 % (24-48) Monocytes (%) (Auto) 3 % (0-9) Eosinophils (%) (Auto) 0 % (0-3) Basophils (%) (Auto) 0 % (0-3) Neutrophils # (Auto) 17.6 x10^3/uL (1.8-7.7) Lymphocytes # (Auto) 1.7 x10^3/uL (1.0-4.8) Monocytes # (Auto) 0.6 x10^3/uL (0.0-1.1) Eosinophils # (Auto) 0.0 x10^3/uL (0.0-0.7) Basophils # (Auto) 0.0 x10^3/uL (0.0-0.2) Sodium Level 147 mmol/L (136-145) Potassium Level 5.3 mmol/L (3.5-5.1) Chloride Level 113 mmol/L (98-107) Carbon Dioxide Level 25 mmol/L (21-32) Anion Gap 9 (6-14) Blood Urea Nitrogen 74 mg/dL (7-20) Creatinine 1.9 mg/dL (0.6-1.0) Estimated GFR (Cockcroft-Gault) 28.1 BUN/Creatinine Ratio 39 (6-20) Glucose Level 241 mg/dL (70-99) Calcium Level 10.8 mg/dL (8.5-10.1) Total Bilirubin 0.6 mg/dL (0.2-1.0) Aspartate Amino Transf (AST/SGOT) 27 U/L (15-37) Alanine Aminotransferase (ALT/SGPT) 20 U/L (14-59) Alkaline Phosphatase 104 U/L (46-116) Total Protein 6.3 g/dL (6.4-8.2) Albumin 1.8 g/dL (3.4-5.0) Albumin/Globulin Ratio 0.4 (1.0-1.7) Prothrombin Time 16.0 SEC (11.7-14.0) Prothromb Time International Ratio 1.3 (0.8-1.1) Activated Partial Thromboplast Time 32 SEC (24-38) Lactic Acid Level 1.7 mmol/L (0.4-2.0) Test 09/25/19 08:08 09/25/19 11:30 09/25/19 13:20 09/25/19 18:05 Hemoglobin 8.3 g/dL (12.0-15.5) 9.6 g/dL (12.0-15.5) Hematocrit 26.0 % (36.0-47.0) 28.9 % (36.0-47.0) Mean Corpuscular Hemoglobin Concent 32 g/dL (31-37) 33 g/dL (31-37) Urine Collection Type Unknown Urine Color Yellow Urine Clarity Cloudy Urine pH 5.0 (<5.0-8.0) Urine Specific [place] 1.020 (1.000-1.030) Urine Protein 30 mg/dL (NEG-TRACE) Urine Glucose (UA) Negative mg/dL (NEG) Urine Ketones (Stick) Negative mg/dL (NEG) Urine Blood Negative (NEG) Urine Nitrite Negative (NEG) Urine Bilirubin Negative (NEG) Urine Urobilinogen Dipstick 0.2 mg/dL (0.2 mg/dL) Urine Leukocyte Esterase Small (NEG) Urine RBC 0 /HPF (0-2) Urine WBC 11-20 /HPF (0-4) Urine Squamous Epithelial Cells Mod /LPF Urine Transitional Epithelial Cells Mod /LPF Urine Amorphous Sediment Present /HPF Urine Bacteria Few /HPF (0-FEW) Urine Hyaline Casts Many /HPF Urine Granular Casts Many /HPF Urine Mucus Marked /LPF Urine Yeast Present /HPF White Blood Count 20.9 x10^3/uL (4.0-11.0) Red Blood Count 3.23 x10^6/uL (3.50-5.40) Mean Corpuscular Volume 89 fL (79-100) Mean Corpuscular Hemoglobin 30 pg (25-35) Red Cell Distribution Width 17.0 % (11.5-14.5) Platelet Count 433 x10^3/uL (140-400) O2 Saturation 95 % (92-99) Arterial Blood pH 7.25 (7.35-7.45) Arterial Blood pCO2 at Patient Temp 48 mmHg (35-46) Arterial Blood pO2 at Patient Temp 92 mmHg (75-108) Arterial Blood HCO3 21 mmol/L (21-28) Arterial Blood Base Excess -6 mmol/L (-3-3) FiO2 50 Test 09/25/19 18:30 09/25/19 18:37 09/25/19 20:45 09/26/19 00:30 White Blood Count 21.2 x10^3/uL (4.0-11.0) 19.8 x10^3/uL (4.0-11.0) Red Blood Count 2.51 x10^6/uL (3.50-5.40) 3.14 x10^6/uL (3.50-5.40) Hemoglobin 7.4 g/dL (12.0-15.5) 9.4 g/dL (12.0-15.5) Hematocrit 22.6 % (36.0-47.0) 28.0 % (36.0-47.0) Mean Corpuscular Volume 90 fL (79-100) 89 fL (79-100) Mean Corpuscular Hemoglobin 30 pg (25-35) 30 pg (25-35) Mean Corpuscular Hemoglobin Concent 33 g/dL (31-37) 34 g/dL (31-37) Red Cell Distribution Width 17.3 % (11.5-14.5) 16.8 % (11.5-14.5) Platelet Count 310 x10^3/uL (140-400) 325 x10^3/uL (140-400) Glucose (Fingerstick) 234 mg/dL (70-99) O2 Saturation 97 % (92-99) Arterial Blood pH 7.27 (7.35-7.45) Arterial Blood pCO2 at Patient Temp 44 mmHg (35-46) Arterial Blood pO2 at Patient Temp 108 mmHg (75-108) Arterial Blood HCO3 20 mmol/L (21-28) Arterial Blood Base Excess -7 mmol/L (-3-3) FiO2 40 Test 09/26/19 00:45 09/26/19 06:50 09/26/19 06:59 09/26/19 08:15 Glucose (Fingerstick) 320 mg/dL (70-99) 149 mg/dL (70-99) White Blood Count 13.8 x10^3/uL (4.0-11.0) Red Blood Count 3.03 x10^6/uL (3.50-5.40) Hemoglobin 8.8 g/dL (12.0-15.5) Hematocrit 26.9 % (36.0-47.0) Mean Corpuscular Volume 89 fL (79-100) Mean Corpuscular Hemoglobin 29 pg (25-35) Mean Corpuscular Hemoglobin Concent 33 g/dL (31-37) Red Cell Distribution Width 17.2 % (11.5-14.5) Platelet Count 311 x10^3/uL (140-400) Neutrophils (%) (Auto) 88 % (31-73) Lymphocytes (%) (Auto) 7 % (24-48) Monocytes (%) (Auto) 4 % (0-9) Eosinophils (%) (Auto) 1 % (0-3) Basophils (%) (Auto) 0 % (0-3) Neutrophils # (Auto) 12.1 x10^3/uL (1.8-7.7) Lymphocytes # (Auto) 0.9 x10^3/uL (1.0-4.8) Monocytes # (Auto) 0.6 x10^3/uL (0.0-1.1) Eosinophils # (Auto) 0.1 x10^3/uL (0.0-0.7) Basophils # (Auto) 0.0 x10^3/uL (0.0-0.2) Segmented Neutrophils % 63 % (35-66) Band Neutrophils % 25 % (0-9) Lymphocytes % 8 % (24-48) Monocytes % 4 % (0-10) Toxic Granulation Present Dohle Bodies Present Platelet Estimate Adequate (ADEQUATE) Anisocytosis Slight Sodium Level 151 mmol/L (136-145) Potassium Level 4.1 mmol/L (3.5-5.1) Chloride Level 118 mmol/L (98-107) Carbon Dioxide Level 25 mmol/L (21-32) Anion Gap 8 (6-14) Blood Urea Nitrogen 58 mg/dL (7-20) Creatinine 1.3 mg/dL (0.6-1.0) Estimated GFR (Cockcroft-Gault) 43.5 BUN/Creatinine Ratio 45 (6-20) Glucose Level 165 mg/dL (70-99) Calcium Level 9.9 mg/dL (8.5-10.1) Total Bilirubin 0.5 mg/dL (0.2-1.0) Aspartate Amino Transf (AST/SGOT) 15 U/L (15-37) Alanine Aminotransferase (ALT/SGPT) 12 U/L (14-59) Alkaline Phosphatase 95 U/L (46-116) Total Protein 5.3 g/dL (6.4-8.2) Albumin 1.5 g/dL (3.4-5.0) Albumin/Globulin Ratio 0.4 (1.0-1.7) O2 Saturation 98 % (92-99) Arterial Blood pH 7.34 (7.35-7.45) Arterial Blood pCO2 at Patient Temp 40 mmHg (35-46) Arterial Blood pO2 at Patient Temp 126 mmHg (75-108) Arterial Blood HCO3 21 mmol/L (21-28) Arterial Blood Base Excess -5 mmol/L (-3-3) FiO2 40% bipap Laboratory Tests Test 09/25/19 11:30 09/25/19 13:20 09/25/19 18:05 09/25/19 18:30 Urine Collection Type Unknown Urine Color Yellow Urine Clarity Cloudy Urine pH 5.0 (<5.0-8.0) Urine Specific [place] 1.020 (1.000-1.030) Urine Protein 30 mg/dL (NEG-TRACE) Urine Glucose (UA) Negative mg/dL (NEG) Urine Ketones (Stick) Negative mg/dL (NEG) Urine Blood Negative (NEG) Urine Nitrite Negative (NEG) Urine Bilirubin Negative (NEG) Urine Urobilinogen Dipstick 0.2 mg/dL (0.2 mg/dL) Urine Leukocyte Esterase Small (NEG) Urine RBC 0 /HPF (0-2) Urine WBC 11-20 /HPF (0-4) Urine Squamous Epithelial Cells Mod /LPF Urine Transitional Epithelial Cells Mod /LPF Urine Amorphous Sediment Present /HPF Urine Bacteria Few /HPF (0-FEW) Urine Hyaline Casts Many /HPF Urine Granular Casts Many /HPF Urine Mucus Marked /LPF Urine Yeast Present /HPF White Blood Count 20.9 x10^3/uL (4.0-11.0) 21.2 x10^3/uL (4.0-11.0) Red Blood Count 3.23 x10^6/uL (3.50-5.40) 2.51 x10^6/uL (3.50-5.40) Hemoglobin 9.6 g/dL (12.0-15.5) 7.4 g/dL (12.0-15.5) Hematocrit 28.9 % (36.0-47.0) 22.6 % (36.0-47.0) Mean Corpuscular Volume 89 fL (79-100) 90 fL (79-100) Mean Corpuscular Hemoglobin 30 pg (25-35) 30 pg (25-35) Mean Corpuscular Hemoglobin Concent 33 g/dL (31-37) 33 g/dL (31-37) Red Cell Distribution Width 17.0 % (11.5-14.5) 17.3 % (11.5-14.5) Platelet Count 433 x10^3/uL (140-400) 310 x10^3/uL (140-400) O2 Saturation 95 % (92-99) Arterial Blood pH 7.25 (7.35-7.45) Arterial Blood pCO2 at Patient Temp 48 mmHg (35-46) Arterial Blood pO2 at Patient Temp 92 mmHg (75-108) Arterial Blood HCO3 21 mmol/L (21-28) Arterial Blood Base Excess -6 mmol/L (-3-3) FiO2 50 Test 09/25/19 18:37 09/25/19 20:45 09/26/19 00:30 09/26/19 00:45 Glucose (Fingerstick) 234 mg/dL (70-99) 320 mg/dL (70-99) O2 Saturation 97 % (92-99) Arterial Blood pH 7.27 (7.35-7.45) Arterial Blood pCO2 at Patient Temp 44 mmHg (35-46) Arterial Blood pO2 at Patient Temp 108 mmHg (75-108) Arterial Blood HCO3 20 mmol/L (21-28) Arterial Blood Base Excess -7 mmol/L (-3-3) FiO2 40 White Blood Count 19.8 x10^3/uL (4.0-11.0) Red Blood Count 3.14 x10^6/uL (3.50-5.40) Hemoglobin 9.4 g/dL (12.0-15.5) Hematocrit 28.0 % (36.0-47.0) Mean Corpuscular Volume 89 fL (79-100) Mean Corpuscular Hemoglobin 30 pg (25-35) Mean Corpuscular Hemoglobin Concent 34 g/dL (31-37) Red Cell Distribution Width 16.8 % (11.5-14.5) Platelet Count 325 x10^3/uL (140-400) Test 09/26/19 06:50 09/26/19 06:59 09/26/19 08:15 White Blood Count 13.8 x10^3/uL (4.0-11.0) Red Blood Count 3.03 x10^6/uL (3.50-5.40) Hemoglobin 8.8 g/dL (12.0-15.5) Hematocrit 26.9 % (36.0-47.0) Mean Corpuscular Volume 89 fL (79-100) Mean Corpuscular Hemoglobin 29 pg (25-35) Mean Corpuscular Hemoglobin Concent 33 g/dL (31-37) Red Cell Distribution Width 17.2 % (11.5-14.5) Platelet Count 311 x10^3/uL (140-400) Neutrophils (%) (Auto) 88 % (31-73) Lymphocytes (%) (Auto) 7 % (24-48) Monocytes (%) (Auto) 4 % (0-9) Eosinophils (%) (Auto) 1 % (0-3) Basophils (%) (Auto) 0 % (0-3) Neutrophils # (Auto) 12.1 x10^3/uL (1.8-7.7) Lymphocytes # (Auto) 0.9 x10^3/uL (1.0-4.8) Monocytes # (Auto) 0.6 x10^3/uL (0.0-1.1) Eosinophils # (Auto) 0.1 x10^3/uL (0.0-0.7) Basophils # (Auto) 0.0 x10^3/uL (0.0-0.2) Segmented Neutrophils % 63 % (35-66) Band Neutrophils % 25 % (0-9) Lymphocytes % 8 % (24-48) Monocytes % 4 % (0-10) Toxic Granulation Present Dohle Bodies Present Platelet Estimate Adequate (ADEQUATE) Anisocytosis Slight Sodium Level 151 mmol/L (136-145) Potassium Level 4.1 mmol/L (3.5-5.1) Chloride Level 118 mmol/L (98-107) Carbon Dioxide Level 25 mmol/L (21-32) Anion Gap 8 (6-14) Blood Urea Nitrogen 58 mg/dL (7-20) Creatinine 1.3 mg/dL (0.6-1.0) Estimated GFR (Cockcroft-Gault) 43.5 BUN/Creatinine Ratio 45 (6-20) Glucose Level 165 mg/dL (70-99) Calcium Level 9.9 mg/dL (8.5-10.1) Total Bilirubin 0.5 mg/dL (0.2-1.0) Aspartate Amino Transf (AST/SGOT) 15 U/L (15-37) Alanine Aminotransferase (ALT/SGPT) 12 U/L (14-59) Alkaline Phosphatase 95 U/L (46-116) Total Protein 5.3 g/dL (6.4-8.2) Albumin 1.5 g/dL (3.4-5.0) Albumin/Globulin Ratio 0.4 (1.0-1.7) Glucose (Fingerstick) 149 mg/dL (70-99) O2 Saturation 98 % (92-99) Arterial Blood pH 7.34 (7.35-7.45) Arterial Blood pCO2 at Patient Temp 40 mmHg (35-46) Arterial Blood pO2 at Patient Temp 126 mmHg (75-108) Arterial Blood HCO3 21 mmol/L (21-28) Arterial Blood Base Excess -5 mmol/L (-3-3) FiO2 40% bipap Problem List Problems Medical Problems: (1) Acute pancreatitis Status: Acute (2) Cholelithiasis Status: Acute Assessment/Plan supportive care will d/w Dr Servin Justicifation of Admission Dx: Justifications for Admission: Justification of Admission Dx: Yes 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 [employer] Sep 26, 2019 10:52
--- NOTE | 2019-09-26 11:15 | PDOC ---
Subjective: Subjective: "So-so." Asks for her call light. Objective: Objective: D/w nurse and reviewed chart - drainage from drain sites over weekend, vomiting green bile, IR procedure yesterday, no blood in stools. Off pressors, Hgb 9.4 to 8.8 today. Vital Signs: Vital Signs Date Time Temp Pulse Resp B/P (MAP) Pulse Ox O2 Delivery O2 Flow Rate FiO2 09/26/19 10:00 97 20 99/54 (69) 100 BiPAP/CPAP 09/26/19 08:00 97.7 97.7 09/25/19 17:36 15.0 Labs: Laboratory Tests Test 09/25/19 11:30 09/25/19 13:20 09/25/19 18:05 09/25/19 18:30 Urine Collection Type Unknown Urine Color Yellow Urine Clarity Cloudy Urine pH 5.0 Urine Specific [place] 1.020 Urine Protein 30 mg/dL Urine Glucose (UA) Negative mg/dL Urine Ketones (Stick) Negative mg/dL Urine Blood Negative Urine Nitrite Negative Urine Bilirubin Negative Urine Urobilinogen Dipstick 0.2 mg/dL Urine Leukocyte Esterase Small Urine RBC 0 /HPF Urine WBC 11-20 /HPF Urine Squamous Epithelial Cells Mod /LPF Urine Transitional Epithelial Cells Mod /LPF Urine Amorphous Sediment Present /HPF Urine Bacteria Few /HPF Urine Hyaline Casts Many /HPF Urine Granular Casts Many /HPF Urine Mucus Marked /LPF Urine Yeast Present /HPF White Blood Count 20.9 x10^3/uL 21.2 x10^3/uL Red Blood Count 3.23 x10^6/uL 2.51 x10^6/uL Hemoglobin 9.6 g/dL 7.4 g/dL Hematocrit 28.9 % 22.6 % Mean Corpuscular Volume 89 fL 90 fL Mean Corpuscular Hemoglobin 30 pg 30 pg Mean Corpuscular Hemoglobin Concent 33 g/dL 33 g/dL Red Cell Distribution Width 17.0 % 17.3 % Platelet Count 433 x10^3/uL 310 x10^3/uL O2 Saturation 95 % Arterial Blood pH 7.25 Arterial Blood pCO2 at Patient Temp 48 mmHg Arterial Blood pO2 at Patient Temp 92 mmHg Arterial Blood HCO3 21 mmol/L Arterial Blood Base Excess -6 mmol/L FiO2 50 Test 09/25/19 18:37 6/7/20 20:45 09/26/19 00:30 09/26/19 00:45 Glucose (Fingerstick) 234 mg/dL 320 mg/dL O2 Saturation 97 % Arterial Blood pH 7.27 Arterial Blood pCO2 at Patient Temp 44 mmHg Arterial Blood pO2 at Patient Temp 108 mmHg Arterial Blood HCO3 20 mmol/L Arterial Blood Base Excess -7 mmol/L FiO2 40 White Blood Count 19.8 x10^3/uL Red Blood Count 3.14 x10^6/uL Hemoglobin 9.4 g/dL Hematocrit 28.0 % Mean Corpuscular Volume 89 fL Mean Corpuscular Hemoglobin 30 pg Mean Corpuscular Hemoglobin Concent 34 g/dL Red Cell Distribution Width 16.8 % Platelet Count 325 x10^3/uL Test 09/26/19 06:50 09/26/19 06:59 09/26/19 08:15 White Blood Count 13.8 x10^3/uL Red Blood Count 3.03 x10^6/uL Hemoglobin 8.8 g/dL Hematocrit 26.9 % Mean Corpuscular Volume 89 fL Mean Corpuscular Hemoglobin 29 pg Mean Corpuscular Hemoglobin Concent 33 g/dL Red Cell Distribution Width 17.2 % Platelet Count 311 x10^3/uL Neutrophils (%) (Auto) 88 % Lymphocytes (%) (Auto) 7 % Monocytes (%) (Auto) 4 % Eosinophils (%) (Auto) 1 % Basophils (%) (Auto) 0 % Neutrophils # (Auto) 12.1 x10^3/uL Lymphocytes # (Auto) 0.9 x10^3/uL Monocytes # (Auto) 0.6 x10^3/uL Eosinophils # (Auto) 0.1 x10^3/uL Basophils # (Auto) 0.0 x10^3/uL Segmented Neutrophils % 63 % Band Neutrophils % 25 % Lymphocytes % 8 % Monocytes % 4 % Toxic Granulation Present Dohle Bodies Present Platelet Estimate Adequate Anisocytosis Slight Sodium Level 151 mmol/L Potassium Level 4.1 mmol/L Chloride Level 118 mmol/L Carbon Dioxide Level 25 mmol/L Anion Gap 8 Blood Urea Nitrogen 58 mg/dL Creatinine 1.3 mg/dL Estimated GFR (Cockcroft-Gault) 43.5 BUN/Creatinine Ratio 45 Glucose Level 165 mg/dL Calcium Level 9.9 mg/dL Total Bilirubin 0.5 mg/dL Aspartate Amino Transf (AST/SGOT) 15 U/L Alanine Aminotransferase (ALT/SGPT) 12 U/L Alkaline Phosphatase 95 U/L Total Protein 5.3 g/dL Albumin 1.5 g/dL Albumin/Globulin Ratio 0.4 Glucose (Fingerstick) 149 mg/dL O2 Saturation 98 % Arterial Blood pH 7.34 Arterial Blood pCO2 at Patient Temp 40 mmHg Arterial Blood pO2 at Patient Temp 126 mmHg Arterial Blood HCO3 21 mmol/L Arterial Blood Base Excess -5 mmol/L FiO2 40% bipap Imaging: CXR 09/25 IMPRESSION: 1. Suspected slight interval increase in diffuse left lung infiltrate. 2. Stable small left greater than right pleural effusions and central right interstitial prominence. 3. Stable support lines and tubes. IR procedure 09/24 IMPRESSION: CT-guided intra-abdominal drainage catheter placement x3 for multi focal intraabdominal fluid collections, concerning for abscesses. CT A/P 09/23 IMPRESSION: 1. Removal of the percutaneous pigtail drainage catheters since the prior exam. Sequela of pancreatitis with extensive pseudocysts again demonstrated, the right-sided collections are slightly larger since the prior exam, the left-sided collections are stable. See above. 2. Moderate to large left pleural effusion with atelectasis and collapse of most of the left lower lobe, stable. Small right pleural effusion is stable. 3. Gallstone. PE: GEN:ill LUNGS: trach/BiPAP mode HEART: RRR ABD:three drains - dark red output (more red on right) NEURO/PSYCH: awake/alert A/P: Pancreatitis, MOSF Anemia, s/p IR drain replacement 09/24 -- Other per Dr. Weber. Justicifation of Admission Dx: Justifications for Admission: Justification of Admission Dx: Yes CYNDEE FALCON Sep 26, 2019 11:15
--- NOTE | 2019-09-26 11:28 | PDOC ---
PULMONARY PROGRESS NOTES Subjective Patient intubated on 07/10 , s/p trach 07/24, transferred back to ICU 09/22 for syncope with collapse developed anemia, blood drainage from RLQ abdomen drain site, and surrounding firmness / developed septic shock 09/24 from abdomen source, required levo 09/24 s/p 3 new drains 09/24 with brown color drainage was place on AVAPS 09/24 post On low dose levo for hypotension, now off. received aggressive IVF, improving renal function and HR/ BP Vitals Vital Signs Date Time Temp Pulse Resp B/P (MAP) Pulse Ox O2 Delivery O2 Flow Rate FiO2 09/26/19 11:00 104 20 95/65 (75) 100 BiPAP/CPAP 09/26/19 08:00 97.7 97.7 09/25/19 17:36 15.0 General: Alert, No acute distress Lungs: Other (diminshed in bases, Rhonci in LLL) Cardiovascular: S1, S2 Abdomen: Soft, Non-tender, Other (bleeding from Sx. site RLQ and firmness) Extremities: Other (+1 BLE edema) Skin: Warm, Dry Labs Laboratory Tests Test 09/24/19 13:06 09/24/19 13:53 09/24/19 16:30 09/24/19 18:12 White Blood Count 16.9 x10^3/uL (4.0-11.0) Red Blood Count 2.48 x10^6/uL (3.50-5.40) Hemoglobin 7.2 g/dL (12.0-15.5) Hematocrit 22.1 % (36.0-47.0) Mean Corpuscular Volume 89 fL (79-100) Mean Corpuscular Hemoglobin 29 pg (25-35) Mean Corpuscular Hemoglobin Concent 33 g/dL (31-37) Red Cell Distribution Width 19.5 % (11.5-14.5) Platelet Count 448 x10^3/uL (140-400) Glucose (Fingerstick) 216 mg/dL (70-99) 199 mg/dL (70-99) O2 Saturation 82 % (92-99) Arterial Blood pH 7.36 (7.35-7.45) Arterial Blood pCO2 at Patient Temp 39 mmHg (35-46) Arterial Blood pO2 at Patient Temp 53 mmHg (75-108) Arterial Blood HCO3 22 mmol/L (21-28) Arterial Blood Base Excess -4 mmol/L (-3-3) FiO2 21 Test 09/24/19 18:24 09/25/19 00:27 09/25/19 05:15 09/25/19 06:50 White Blood Count 18.7 x10^3/uL (4.0-11.0) 20.0 x10^3/uL (4.0-11.0) Red Blood Count 3.07 x10^6/uL (3.50-5.40) 3.06 x10^6/uL (3.50-5.40) Hemoglobin 9.1 g/dL (12.0-15.5) 8.7 g/dL (12.0-15.5) Hematocrit 27.2 % (36.0-47.0) 27.3 % (36.0-47.0) Mean Corpuscular Volume 89 fL (79-100) 89 fL (79-100) Mean Corpuscular Hemoglobin 30 pg (25-35) 29 pg (25-35) Mean Corpuscular Hemoglobin Concent 33 g/dL (31-37) 32 g/dL (31-37) Red Cell Distribution Width 18.0 % (11.5-14.5) 18.5 % (11.5-14.5) Platelet Count 476 x10^3/uL (140-400) 451 x10^3/uL (140-400) Glucose (Fingerstick) 247 mg/dL (70-99) Neutrophils (%) (Auto) 88 % (31-73) Lymphocytes (%) (Auto) 8 % (24-48) Monocytes (%) (Auto) 3 % (0-9) Eosinophils (%) (Auto) 0 % (0-3) Basophils (%) (Auto) 0 % (0-3) Neutrophils # (Auto) 17.6 x10^3/uL (1.8-7.7) Lymphocytes # (Auto) 1.7 x10^3/uL (1.0-4.8) Monocytes # (Auto) 0.6 x10^3/uL (0.0-1.1) Eosinophils # (Auto) 0.0 x10^3/uL (0.0-0.7) Basophils # (Auto) 0.0 x10^3/uL (0.0-0.2) Sodium Level 147 mmol/L (136-145) Potassium Level 5.3 mmol/L (3.5-5.1) Chloride Level 113 mmol/L (98-107) Carbon Dioxide Level 25 mmol/L (21-32) Anion Gap 9 (6-14) Blood Urea Nitrogen 74 mg/dL (7-20) Creatinine 1.9 mg/dL (0.6-1.0) Estimated GFR (Cockcroft-Gault) 28.1 BUN/Creatinine Ratio 39 (6-20) Glucose Level 241 mg/dL (70-99) Calcium Level 10.8 mg/dL (8.5-10.1) Total Bilirubin 0.6 mg/dL (0.2-1.0) Aspartate Amino Transf (AST/SGOT) 27 U/L (15-37) Alanine Aminotransferase (ALT/SGPT) 20 U/L (14-59) Alkaline Phosphatase 104 U/L (46-116) Total Protein 6.3 g/dL (6.4-8.2) Albumin 1.8 g/dL (3.4-5.0) Albumin/Globulin Ratio 0.4 (1.0-1.7) Prothrombin Time 16.0 SEC (11.7-14.0) Prothromb Time International Ratio 1.3 (0.8-1.1) Activated Partial Thromboplast Time 32 SEC (24-38) Lactic Acid Level 1.7 mmol/L (0.4-2.0) Test 09/25/19 08:08 09/25/19 11:30 09/25/19 13:20 09/25/19 18:05 Hemoglobin 8.3 g/dL (12.0-15.5) 9.6 g/dL (12.0-15.5) Hematocrit 26.0 % (36.0-47.0) 28.9 % (36.0-47.0) Mean Corpuscular Hemoglobin Concent 32 g/dL (31-37) 33 g/dL (31-37) Urine Collection Type Unknown Urine Color Yellow Urine Clarity Cloudy Urine pH 5.0 (<5.0-8.0) Urine Specific [place] 1.020 (1.000-1.030) Urine Protein 30 mg/dL (NEG-TRACE) Urine Glucose (UA) Negative mg/dL (NEG) Urine Ketones (Stick) Negative mg/dL (NEG) Urine Blood Negative (NEG) Urine Nitrite Negative (NEG) Urine Bilirubin Negative (NEG) Urine Urobilinogen Dipstick 0.2 mg/dL (0.2 mg/dL) Urine Leukocyte Esterase Small (NEG) Urine RBC 0 /HPF (0-2) Urine WBC 11-20 /HPF (0-4) Urine Squamous Epithelial Cells Mod /LPF Urine Transitional Epithelial Cells Mod /LPF Urine Amorphous Sediment Present /HPF Urine Bacteria Few /HPF (0-FEW) Urine Hyaline Casts Many /HPF Urine Granular Casts Many /HPF Urine Mucus Marked /LPF Urine Yeast Present /HPF White Blood Count 20.9 x10^3/uL (4.0-11.0) Red Blood Count 3.23 x10^6/uL (3.50-5.40) Mean Corpuscular Volume 89 fL (79-100) Mean Corpuscular Hemoglobin 30 pg (25-35) Red Cell Distribution Width 17.0 % (11.5-14.5) Platelet Count 433 x10^3/uL (140-400) O2 Saturation 95 % (92-99) Arterial Blood pH 7.25 (7.35-7.45) Arterial Blood pCO2 at Patient Temp 48 mmHg (35-46) Arterial Blood pO2 at Patient Temp 92 mmHg (75-108) Arterial Blood HCO3 21 mmol/L (21-28) Arterial Blood Base Excess -6 mmol/L (-3-3) FiO2 50 Test 09/25/19 18:30 09/25/19 18:37 09/25/19 20:45 09/26/19 00:30 White Blood Count 21.2 x10^3/uL (4.0-11.0) 19.8 x10^3/uL (4.0-11.0) Red Blood Count 2.51 x10^6/uL (3.50-5.40) 3.14 x10^6/uL (3.50-5.40) Hemoglobin 7.4 g/dL (12.0-15.5) 9.4 g/dL (12.0-15.5) Hematocrit 22.6 % (36.0-47.0) 28.0 % (36.0-47.0) Mean Corpuscular Volume 90 fL (79-100) 89 fL (79-100) Mean Corpuscular Hemoglobin 30 pg (25-35) 30 pg (25-35) Mean Corpuscular Hemoglobin Concent 33 g/dL (31-37) 34 g/dL (31-37) Red Cell Distribution Width 17.3 % (11.5-14.5) 16.8 % (11.5-14.5) Platelet Count 310 x10^3/uL (140-400) 325 x10^3/uL (140-400) Glucose (Fingerstick) 234 mg/dL (70-99) O2 Saturation 97 % (92-99) Arterial Blood pH 7.27 (7.35-7.45) Arterial Blood pCO2 at Patient Temp 44 mmHg (35-46) Arterial Blood pO2 at Patient Temp 108 mmHg (75-108) Arterial Blood HCO3 20 mmol/L (21-28) Arterial Blood Base Excess -7 mmol/L (-3-3) FiO2 40 Test 09/26/19 00:45 09/26/19 06:50 09/26/19 06:59 09/26/19 08:15 Glucose (Fingerstick) 320 mg/dL (70-99) 149 mg/dL (70-99) White Blood Count 13.8 x10^3/uL (4.0-11.0) Red Blood Count 3.03 x10^6/uL (3.50-5.40) Hemoglobin 8.8 g/dL (12.0-15.5) Hematocrit 26.9 % (36.0-47.0) Mean Corpuscular Volume 89 fL (79-100) Mean Corpuscular Hemoglobin 29 pg (25-35) Mean Corpuscular Hemoglobin Concent 33 g/dL (31-37) Red Cell Distribution Width 17.2 % (11.5-14.5) Platelet Count 311 x10^3/uL (140-400) Neutrophils (%) (Auto) 88 % (31-73) Lymphocytes (%) (Auto) 7 % (24-48) Monocytes (%) (Auto) 4 % (0-9) Eosinophils (%) (Auto) 1 % (0-3) Basophils (%) (Auto) 0 % (0-3) Neutrophils # (Auto) 12.1 x10^3/uL (1.8-7.7) Lymphocytes # (Auto) 0.9 x10^3/uL (1.0-4.8) Monocytes # (Auto) 0.6 x10^3/uL (0.0-1.1) Eosinophils # (Auto) 0.1 x10^3/uL (0.0-0.7) Basophils # (Auto) 0.0 x10^3/uL (0.0-0.2) Segmented Neutrophils % 63 % (35-66) Band Neutrophils % 25 % (0-9) Lymphocytes % 8 % (24-48) Monocytes % 4 % (0-10) Toxic Granulation Present Dohle Bodies Present Platelet Estimate Adequate (ADEQUATE) Anisocytosis Slight Sodium Level 151 mmol/L (136-145) Potassium Level 4.1 mmol/L (3.5-5.1) Chloride Level 118 mmol/L (98-107) Carbon Dioxide Level 25 mmol/L (21-32) Anion Gap 8 (6-14) Blood Urea Nitrogen 58 mg/dL (7-20) Creatinine 1.3 mg/dL (0.6-1.0) Estimated GFR (Cockcroft-Gault) 43.5 BUN/Creatinine Ratio 45 (6-20) Glucose Level 165 mg/dL (70-99) Calcium Level 9.9 mg/dL (8.5-10.1) Total Bilirubin 0.5 mg/dL (0.2-1.0) Aspartate Amino Transf (AST/SGOT) 15 U/L (15-37) Alanine Aminotransferase (ALT/SGPT) 12 U/L (14-59) Alkaline Phosphatase 95 U/L (46-116) Total Protein 5.3 g/dL (6.4-8.2) Albumin 1.5 g/dL (3.4-5.0) Albumin/Globulin Ratio 0.4 (1.0-1.7) O2 Saturation 98 % (92-99) Arterial Blood pH 7.34 (7.35-7.45) Arterial Blood pCO2 at Patient Temp 40 mmHg (35-46) Arterial Blood pO2 at Patient Temp 126 mmHg (75-108) Arterial Blood HCO3 21 mmol/L (21-28) Arterial Blood Base Excess -5 mmol/L (-3-3) FiO2 40% bipap Laboratory Tests Test 09/25/19 11:30 09/25/19 13:20 09/25/19 18:05 09/25/19 18:30 Urine Collection Type Unknown Urine Color Yellow Urine Clarity Cloudy Urine pH 5.0 (<5.0-8.0) Urine Specific [place] 1.020 (1.000-1.030) Urine Protein 30 mg/dL (NEG-TRACE) Urine Glucose (UA) Negative mg/dL (NEG) Urine Ketones (Stick) Negative mg/dL (NEG) Urine Blood Negative (NEG) Urine Nitrite Negative (NEG) Urine Bilirubin Negative (NEG) Urine Urobilinogen Dipstick 0.2 mg/dL (0.2 mg/dL) Urine Leukocyte Esterase Small (NEG) Urine RBC 0 /HPF (0-2) Urine WBC 11-20 /HPF (0-4) Urine Squamous Epithelial Cells Mod /LPF Urine Transitional Epithelial Cells Mod /LPF Urine Amorphous Sediment Present /HPF Urine Bacteria Few /HPF (0-FEW) Urine Hyaline Casts Many /HPF Urine Granular Casts Many /HPF Urine Mucus Marked /LPF Urine Yeast Present /HPF White Blood Count 20.9 x10^3/uL (4.0-11.0) 21.2 x10^3/uL (4.0-11.0) Red Blood Count 3.23 x10^6/uL (3.50-5.40) 2.51 x10^6/uL (3.50-5.40) Hemoglobin 9.6 g/dL (12.0-15.5) 7.4 g/dL (12.0-15.5) Hematocrit 28.9 % (36.0-47.0) 22.6 % (36.0-47.0) Mean Corpuscular Volume 89 fL (79-100) 90 fL (79-100) Mean Corpuscular Hemoglobin 30 pg (25-35) 30 pg (25-35) Mean Corpuscular Hemoglobin Concent 33 g/dL (31-37) 33 g/dL (31-37) Red Cell Distribution Width 17.0 % (11.5-14.5) 17.3 % (11.5-14.5) Platelet Count 433 x10^3/uL (140-400) 310 x10^3/uL (140-400) O2 Saturation 95 % (92-99) Arterial Blood pH 7.25 (7.35-7.45) Arterial Blood pCO2 at Patient Temp 48 mmHg (35-46) Arterial Blood pO2 at Patient Temp 92 mmHg (75-108) Arterial Blood HCO3 21 mmol/L (21-28) Arterial Blood Base Excess -6 mmol/L (-3-3) FiO2 50 Test 09/25/19 18:37 09/25/19 20:45 09/26/19 00:30 09/26/19 00:45 Glucose (Fingerstick) 234 mg/dL (70-99) 320 mg/dL (70-99) O2 Saturation 97 % (92-99) Arterial Blood pH 7.27 (7.35-7.45) Arterial Blood pCO2 at Patient Temp 44 mmHg (35-46) Arterial Blood pO2 at Patient Temp 108 mmHg (75-108) Arterial Blood HCO3 20 mmol/L (21-28) Arterial Blood Base Excess -7 mmol/L (-3-3) FiO2 40 White Blood Count 19.8 x10^3/uL (4.0-11.0) Red Blood Count 3.14 x10^6/uL (3.50-5.40) Hemoglobin 9.4 g/dL (12.0-15.5) Hematocrit 28.0 % (36.0-47.0) Mean Corpuscular Volume 89 fL (79-100) Mean Corpuscular Hemoglobin 30 pg (25-35) Mean Corpuscular Hemoglobin Concent 34 g/dL (31-37) Red Cell Distribution Width 16.8 % (11.5-14.5) Platelet Count 325 x10^3/uL (140-400) Test 09/26/19 06:50 09/26/19 06:59 09/26/19 08:15 White Blood Count 13.8 x10^3/uL (4.0-11.0) Red Blood Count 3.03 x10^6/uL (3.50-5.40) Hemoglobin 8.8 g/dL (12.0-15.5) Hematocrit 26.9 % (36.0-47.0) Mean Corpuscular Volume 89 fL (79-100) Mean Corpuscular Hemoglobin 29 pg (25-35) Mean Corpuscular Hemoglobin Concent 33 g/dL (31-37) Red Cell Distribution Width 17.2 % (11.5-14.5) Platelet Count 311 x10^3/uL (140-400) Neutrophils (%) (Auto) 88 % (31-73) Lymphocytes (%) (Auto) 7 % (24-48) Monocytes (%) (Auto) 4 % (0-9) Eosinophils (%) (Auto) 1 % (0-3) Basophils (%) (Auto) 0 % (0-3) Neutrophils # (Auto) 12.1 x10^3/uL (1.8-7.7) Lymphocytes # (Auto) 0.9 x10^3/uL (1.0-4.8) Monocytes # (Auto) 0.6 x10^3/uL (0.0-1.1) Eosinophils # (Auto) 0.1 x10^3/uL (0.0-0.7) Basophils # (Auto) 0.0 x10^3/uL (0.0-0.2) Segmented Neutrophils % 63 % (35-66) Band Neutrophils % 25 % (0-9) Lymphocytes % 8 % (24-48) Monocytes % 4 % (0-10) Toxic Granulation Present Dohle Bodies Present Platelet Estimate Adequate (ADEQUATE) Anisocytosis Slight Sodium Level 151 mmol/L (136-145) Potassium Level 4.1 mmol/L (3.5-5.1) Chloride Level 118 mmol/L (98-107) Carbon Dioxide Level 25 mmol/L (21-32) Anion Gap 8 (6-14) Blood Urea Nitrogen 58 mg/dL (7-20) Creatinine 1.3 mg/dL (0.6-1.0) Estimated GFR (Cockcroft-Gault) 43.5 BUN/Creatinine Ratio 45 (6-20) Glucose Level 165 mg/dL (70-99) Calcium Level 9.9 mg/dL (8.5-10.1) Total Bilirubin 0.5 mg/dL (0.2-1.0) Aspartate Amino Transf (AST/SGOT) 15 U/L (15-37) Alanine Aminotransferase (ALT/SGPT) 12 U/L (14-59) Alkaline Phosphatase 95 U/L (46-116) Total Protein 5.3 g/dL (6.4-8.2) Albumin 1.5 g/dL (3.4-5.0) Albumin/Globulin Ratio 0.4 (1.0-1.7) Glucose (Fingerstick) 149 mg/dL (70-99) O2 Saturation 98 % (92-99) Arterial Blood pH 7.34 (7.35-7.45) Arterial Blood pCO2 at Patient Temp 40 mmHg (35-46) Arterial Blood pO2 at Patient Temp 126 mmHg (75-108) Arterial Blood HCO3 21 mmol/L (21-28) Arterial Blood Base Excess -5 mmol/L (-3-3) FiO2 40% bipap Medications Active Scripts Medications Dose Route/Sig Max Daily Dose Days Date Category Bisoprolol Fumarate 5 Mg Tablet 10 Mg PO DAILY 07/04/19 Reported Comments CXR 09/24/2019 IMPRESSION: Lines and tubes as described above. Left greater than right lower lobe opacities most likely pulmonary edema and left greater than right mild pleural effusions are stable. Superimposed left lower lobe pneumonia is not excluded. ct abdomen /pelvis 09/23 1. Removal of the percutaneous pigtail drainage catheters since the prior exam. Sequela of pancreatitis with extensive pseudocysts again demonstrated, the right-sided collections are slightly larger since the prior exam, the left-sided collections are stable. See above. 2. Moderate to large left pleural effusion with atelectasis and collapse of most of the left lower lobe, stable. Small right pleural effusion is stable. 3. Gallstone. Impression . IMPRESSION: 1. Acute hypoxemic respiratory failure secondary to ARDS status post trach, developed anemia 09/24, blood drainage from RLQ abdomen drain site, and surrounding firmness / developed septic shock / from abdomen source, required levo /7 s/p 3 new drains 09/24 with brown color drainage,was placed on AVAPS / post procedure after receiving narcotics. much better now was On low dose levo for hypotension, now off. received aggressive IVF, improving renal function and HR/ BP 2. Gallstone pancreatitis, now with ongoing bleeding from prior drain. Anemic. s/p Tx 4 units, . 3. septic shock, recurrent /, source abdomen. , off levo now, much better 4. Acute kidney injury-, Off HD--renal function decling. suspect JUANA on CKD due to hypotension , improved now 5. Acute gallstone pancreatitis. 6. Hypoalbuminemia. 7. Moderate persistent effusions, s/p left thora 08/29, reaccumulation of left effusion. O2 requirement not changed. will benefit from repeat thora in am 8. New Fever- ,hypotension. suspect recurrent sepsis/ likely pancreatic source. Per ID, per surgery-- 9. Chronic anemia-- ongoing / s/p PRBC 10. Covid 19 testing negative 11. Moderate to large ascites-S/P paracentisis 12.S/P paracentisis with 4 liters removed on 08/03/19 13. S/P IR drain placement on 08/26/2019, removal 14. Depression/Anxiety 1 Plan . 1. dc AVAPS . place back on trach shield-- PMV/capping as tolerated/ prn suction. 2. Follow all cultures 3. Follow surgery recs-- Acute pancreatitis with persistent necrosis ---- 08/14 status post KAYLIN drain placement + C paropsilosis; 08/23 + yeast & high amylase; s/p additional drains on 08/25, removal of drains and now increase pseudocyst and increase fluid collection. likely infected fluid/ sepsis. Initiated BS abx. 4. Follow ID recs for ABX-- 5. Follow nephrology recs --- 6. Continue TPN 7. monitor HGB, 4 units since 09/23 8. hold off on thoracentesis . effusion small to moderate , monitor for now 9. Check amalyse and lipase, 10. s/p thoracentesis, 08/29, 3 litres removed 11. d/w IR in detail cct 40 min DVT/GI PPX: / protonix--- holding lovenox 2/2 anemia PT/OT D/W VINAYAK MOSLEY MD Sep 26, 2019 11:28
[2019-09-26 11:40] LABS: FECAL OB PT NEGATIVE (NEG)
[2019-09-26] MEDS: MICAFUNGIN 100 MG in IV DEXTROSE 5% 100ML 100 ML IV SCH (11:50)
[2019-09-26 12:10] LABS: HEMOGLOBIN 8.6 g/dL (12.0-15.5); RED BLOOD COUNT 2.93 x10^6/uL (3.50-5.40); RED CELL DISTRIBUTION WIDTH 16.8 % (11.5-14.5); WHITE BLOOD COUNT 11.8 x10^3/uL (4.0-11.0)
[2019-09-26] MEDS: TPN PER PHARMACY MC PRN (13:14)
--- NOTE | 2019-09-26 13:20 | NUR ---
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, 8 inches Weight: 75.5 kg Current diet: NPO LABS: Sodium: 151 Potassium: 4.1 Chloride: 118 Calcium: 9.9 Corrected Calcium: 11.90 Magnesium: 2.4 CO2: 25 SCr: 1.9 Glucose: 165 Albumin: 1.5 AST: 15 ALT: 12 TPN FORMULA: TPN TYPE: Central Continuous AMINO ACIDS: 75 gm DEXTROSE: 250 gm LIPIDS: 20 gm SODIUM CHLORIDE: - mEq SODIUM ACETATE: - mEq SODIUM PHOSPHATE: - mmol POTASSIUM CHLORIDE: - mEq POTASSIUM ACETATE: 40 mEq POTASSIUM PHOSPHATE: - mmol MAGNESIUM: 5 mEq CALCIUM: - mEq INSULIN: 30 units MULTIPLE VITAMIN: 10 ml TRACE ELEMENTS: 1 ml(s) . R: Continue TPN with no changes. Will monitor electrolytes, glucose, and tolerance to TPN. KRISTIAN APODACA [facility], 09/26/19 1322
--- NOTE | 2019-09-26 13:23 | NUR ---
SS following up with discharge planning. SS reviewed pt chart and discussed with pt RN. Pt had decline over weekend and was unable to work with PT/OT. Pt had three drains placed on 09/25/2019. Pt on IV Daptomycin, Micafungin, and TPN. Per RN, pt wore trach cap for one hour today. Pt remains full code per family's wishes. SS will continue to follow for discharge planning.
[2019-09-26] MEDS: DAPTOmycin (GENERIC) IVPB 410 MG in IV NORMAL SALINE 50ML 50 ML IV SCH (15:33)
[2019-09-26] MEDS ORDERED: TOTAL PARENTERAL NUTRITION IV SCH ×8 (22:00)
[2019-09-26] MEDS ORDERED: [UNRECOGNIZED DRUG - OTHER] IV SCH ×8 (22:00)
[2019-09-26] MEDS ORDERED: DEXTROSE 70% IV SCH ×8 (22:00)
[2019-09-26] MEDS ORDERED: AMINO ACID IV SCH ×8 (22:00)
[2019-09-27] VITALS (24 sets, daily range): BP systolic 132–186; BP diastolic 64–87
[2019-09-27] MEDS: fentaNYL PF VIAL 100 MCG/2 ML VIAL IVP PRN ×6 (02:29→22:02)
[2019-09-27] MEDS: PROCHLORPERAZINE 10 MG/2 ML VIAL. IV PRN (03:45)
[2019-09-27 04:41] LABS: BASO % 0 % (0-3); EOS # 0.2 x10^3/uL (0.0-0.7); EOS % 2 % (0-3); HEMATOCRIT 26.2 % (36.0-47.0); HEMOGLOBIN 8.6 g/dL (12.0-15.5); LYMPH # 1.3 x10^3/uL (1.0-4.8); LYMPH % 16 % (24-48); MEAN CORPUSCULAR HEMOGLOBIN 30 pg (25-35); MEAN CORPUSCULAR HGB CONC 33 g/dL (31-37); MEAN CORPUSCULAR VOLUME 90 fL (79-100); MONO # 0.4 x10^3/uL (0.0-1.1); MONO % 5 % (0-9); NEUT # 6.1 x10^3/uL (1.8-7.7); NEUT % 77 % (31-73); PLATELET COUNT 285 x10^3/uL (140-400); RED BLOOD COUNT 2.92 x10^6/uL (3.50-5.40); RED CELL DISTRIBUTION WIDTH 17.4 % (11.5-14.5)
--- NOTE | 2019-09-27 04:52 | NUR ---
At 0300 patient began to get very agitated. She was given 25 mcg Fentanyl at about 0230 and her pain had not improved. To soothe anxiety I attempted to talk to her for a bit but she was too worked up to talk. HR was in 150s-160s and BP max was in 190s. RR was >50 breaths per minute and patient could not explain why she was anxious. I tried suctioning her and doing trach care, but neither improved patient status. Ativan was given with no improvement. Temperature was taken to make sure she wasn't febrile--99.6. Patient then stated that she had a bowel movement and needed to be repositioned. This RN went to get sheets to change her bed and another RN went into room to talk with her and see if she could calm her down. When I arrived in the room RN had checked her #1 drain and it was full of clots with blood pooling on bed. I had just checked drains when we turned patient at 0200 and all drains barely had any output. Attempted to empty drain but had to change bulb due to clots. Dressing changed over previous KAYLIN sites that were bleeding, all drains flushed and emptied, patient cleaned up, and turned. Patient had a total of 240 out of drain #1, 50 out of drain #2, and 80 out of drain #3. After flushing drain #1, no more clots were visualized. Patient seemed to be getting more lethargic but said she was in 10/10 pain. 50 of Fentanyl given and labs sent. Patient now resting well--HR, RR, and BP all coming down. Will watch for results of labs and continue to monitor patient. Addendum: 09/27/19 at 0532 by LOIDA AGUILAR RN RN Hgb resulted at 8.6--unchanged from noon on 09/25. Patient's HR slowly continuing to decrease but patient still breathing quickly. ABG obtained and pO2 63. Patient's O2 increased to 40% or 10 L on trach shield.
[2019-09-27 05:02] LABS: CALCIUM 10.3 mg/dL (8.5-10.1); CREATININE 1.1 mg/dL (0.6-1.0); GFR 52.8; POTASSIUM 4.2 mmol/L (3.5-5.1)
[2019-09-27 05:26] LABS: BASE EXCESS ABG -5 mmol/L (-3-3); HCO3 ABG 20 mmol/L (21-28); PCO2 ABG 36 mmHg (35-46); PO2 ABG 63 mmHg (75-108); SAT O2 ABG 90 % (92-99)
[2019-09-27 05:36] LABS: FIO2 ABG 33
[2019-09-27] MEDS: INSULIN LISPRO 300 UNITS/3 ML VIAL. SQ SCH ×4 (06:00→18:19)
[2019-09-27] MEDS: IV NORMAL SALINE 1000ML BAG 1,000 ML IV SCH ×2 (06:20→17:40)
[2019-09-27] MEDS ORDERED: IV NORMAL SALINE 500ML BAG 500 ML IV ONE (06:45)
--- NOTE | 2019-09-27 08:04 | PDOC ---
Infectious Disease Note Subjective: Subjective Patient remains lethargic tachycardic, tachpneic lot of resp secretions NGT clamped blood stained drainage from drains T-max 99.6 Vital Signs: Vital Signs Vital Signs Date Time Temp Pulse Resp B/P (MAP) Pulse Ox O2 Delivery O2 Flow Rate FiO2 09/27/19 07:00 148 46 172/74 (106) 98 Tracheal Collar 10.0 09/27/19 06:00 97.8 97.8 Physical Exam: PHYSICAL EXAM GENERAL:lethargic, arousable though extremely weak HEENT: NGT in place. 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 LUE-PICC (09/15) without signs of complications Medications: Inpatient Meds: Current Medications Medications (Trade) Dose Ordered Sig/Yvon Start Time Stop Time Status Last Admin Dose Admin Acetaminophen (Tylenol Supp) 650 mg PRN Q6HRS PRN 07/12/19 10:30 09/25/19 14:41 650 MG Acetaminophen (Tylenol) 650 mg PRN Q6HRS PRN 07/09/19 03:36 08/31/19 10:25 DC 08/04/19 19:56 650 MG Albumin Human 500 ml @ 125 mls/hr 1X ONCE 09/25/19 08:15 09/25/19 12:14 DC 09/25/19 08:10 125 MLS/HR Albuterol Sulfate (Ventolin Neb Soln) 2.5 mg 1X ONCE 07/05/19 22:30 07/05/19 22:31 DC 07/06/19 00:56 2.5 MG Alteplase, Recombinant (Cathflo For Central Catheter Clearance) 1 mg 1X ONCE 08/12/19 10:45 08/12/19 10:46 DC 08/12/19 11:44 1 MG Amino Acids/ Glycerin/ Electrolytes 1,000 ml @ 75 mls/hr [id number] 08/08/19 21:15 UNV Artificial Tears (Artificial Tears) 1 drop PRN Q15MIN PRN 08/17/19 05:30 09/16/19 10:08 1 DROP Atenolol (Tenormin) 100 mg DAILY 07/05/19 09:00 07/04/19 20:08 DC Atropine Sulfate (ATROPINE 0.5mg SYRINGE) 0.5 mg PRN Q5MIN PRN 07/21/19 08:15 Barium Sulfate (Varibar Thin Liquid Apple) 148 gm 1X ONCE 09/13/19 11:45 09/13/19 11:49 DC Benzocaine (Hurricaine One) 1 spray 1X ONCE 07/08/19 14:30 07/08/19 14:31 DC 07/08/19 16:38 1 SPRAY Bisacodyl (Dulcolax Supp) 10 mg STK-MED ONCE 08/15/19 10:59 08/15/19 10:59 DC Bumetanide (Bumex) 2 mg DAILY 08/26/19 10:00 09/05/19 17:15 DC 09/05/19 08:07 2 MG Bupivacaine HCl/ Epinephrine Bitart (Sensorcain-Epi 0.5%-1:259165 Mpf) 30 ml STK-MED ONCE 08/15/19 10:58 08/15/19 10:58 DC 08/15/19 12:01 7 ML Calcium Carbonate/ Glycine (Tums) 500 mg PRN AFTMEALHC PRN 07/06/19 17:45 08/31/19 10:25 DC Calcium Chloride 1000 mg/Sodium Chloride 110 ml @ 220 mls/hr 1X ONCE 07/05/19 22:30 07/05/19 22:59 DC 07/05/19 22:11 220 MLS/HR Calcium Chloride 3000 mg/Sodium Chloride 1,030 ml @ 50 mls/hr [id number] 07/07/19 08:00 07/09/19 15:23 DC 07/09/19 02:17 50 MLS/HR Calcium Gluconate (Calcium Gluconate) 2,000 mg 1X ONCE 07/07/19 02:15 07/07/19 02:16 DC 07/07/19 02:19 2,000 MG Calcium Gluconate 1000 mg/Sodium Chloride 110 ml @ 220 mls/hr 1X ONCE 07/06/19 03:30 07/06/19 03:59 DC 07/06/19 03:21 220 MLS/HR Calcium Gluconate 2000 mg/Sodium Chloride 120 ml @ 220 mls/hr 1X ONCE 07/06/19 07:30 07/06/19 08:02 DC 07/06/19 09:05 220 MLS/HR Cefepime HCl (Maxipime) 2 gm Q12HR 07/13/19 09:00 07/27/19 09:58 DC 07/26/19 20:56 2 GM Cellulose (Surgicel Fibrillar 1x2) 1 each STK-MED ONCE 07/25/19 11:00 07/25/19 11:01 DC Cellulose (Surgicel Hemostat 2x14) 1 each STK-MED ONCE 08/15/19 10:58 08/15/19 10:59 DC Cellulose (Surgicel Hemostat 4x8) 1 each STK-MED ONCE 08/15/19 10:58 08/15/19 10:59 DC Cyclobenzaprine HCl (Flexeril) 10 mg PRN Q6HRS PRN 08/18/19 10:45 Daptomycin 410 mg/ Sodium Chloride 50 ml @ 100 mls/hr Q24H 09/25/19 14:00 09/26/19 15:33 100 MLS/HR Daptomycin 430 mg/ Sodium Chloride 50 ml @ 100 mls/hr Q24H 08/13/19 13:00 08/18/19 20:58 DC 08/18/19 13:00 100 MLS/HR Daptomycin 450 mg/ Sodium Chloride 50 ml @ 100 mls/hr Q24H 09/04/19 09:00 09/08/19 08:30 DC 09/07/19 09:25 100 MLS/HR Daptomycin 485 mg/ Sodium Chloride 50 ml @ 100 mls/hr Q24H 08/22/19 11:00 08/30/19 07:44 DC 08/29/19 13:10 100 MLS/HR Daptomycin 500 mg/ Sodium Chloride 50 ml @ 100 mls/hr Q48H 07/13/19 08:30 07/29/19 10:07 DC 07/29/19 09:57 100 MLS/HR Dexamethasone Sodium Phosphate (Decadron) 4 mg STK-MED ONCE 08/15/19 10:56 08/15/19 10:57 DC Dexmedetomidine HCl 400 mcg/ Sodium Chloride 100 ml @ 0 mls/hr CONT PRN 07/21/19 08:15 09/17/19 18:31 DC 09/17/19 12:57 8 MLS/HR Dextrose (Dextrose 50%-Water Syringe) 12.5 gm PRN Q15MIN PRN 07/04/19 09:30 Digoxin (Lanoxin) 125 mcg 1X ONCE 07/07/19 18:00 07/07/19 18:01 DC 07/07/19 17:10 125 MCG Diphenhydramine HCl (Benadryl) 25 mg 1X PRN PRN 08/12/19 15:45 08/13/19 15:44 DC Duloxetine HCl (Cymbalta) 30 mg DAILY 08/28/19 14:00 08/31/19 10:25 DC 08/29/19 09:48 30 MG Enoxaparin Sodium (Lovenox 100mg Syringe) 100 mg Q12HR 08/09/19 21:00 UNV Enoxaparin Sodium (Lovenox 40mg Syringe) 40 mg Q24H 09/04/19 17:00 09/25/19 06:50 DC 09/23/19 17:44 40 MG Etomidate (Amidate) 8 mg 1X ONCE 07/11/19 08:30 07/11/19 08:31 DC 07/11/19 08:33 8 MG Fentanyl (Duragesic 50mcg/ Hr Patch) 1 patch Q72H 09/22/19 21:00 09/22/19 21:22 1 PATCH Fentanyl Citrate (Fentanyl 2ml Vial) 100 mcg 1X ONCE 09/25/19 15:00 09/25/19 15:01 DC 09/25/19 15:28 50 MCG Fentanyl Citrate (Fentanyl 5ml Vial) 250 mcg 1X ONCE 08/26/19 09:15 08/26/19 09:16 DC 08/26/19 09:30 50 MCG Flumazenil (Romazicon) 0.5 mg STK-MED ONCE 09/25/19 14:48 09/25/19 14:48 DC Fluoxetine HCl (PROzac) 20 mg QHS 09/22/19 21:00 09/26/19 20:55 20 MG Furosemide (Lasix) 40 mg DAILY 09/21/19 13:30 09/25/19 09:12 DC 09/23/19 11:14 40 MG Haloperidol Lactate (Haldol Inj) 3 mg 1X ONCE 08/22/19 14:30 08/22/19 14:31 DC 08/22/19 14:37 3 MG Heparin Sodium (Porcine) (Hep Lock Adult) 500 unit STK-MED ONCE 07/26/19 09:29 07/26/19 09:30 DC Heparin Sodium (Porcine) (Heparin Sodium) 5,000 unit Q12HR 08/15/19 21:00 08/25/19 09:59 DC 08/24/19 20:57 5,000 UNIT Heparin Sodium (Porcine) 1000 unit/Sodium Chloride 1,001 ml @ 1,001 mls/hr 1X ONCE 08/15/19 12:00 08/15/19 12:59 DC Hydromorphone HCl (Dilaudid Standard SYSTEMS SPECIALIST) 12 mg STK-MED ONCE 08/19/19 15:50 08/30/19 11:24 DC Hydromorphone HCl (Dilaudid) 1 mg PRN Q4HRS PRN 08/22/19 19:00 09/05/19 17:10 DC 09/05/19 06:25 1 MG Info (CONTRAST GIVEN -- Rx MONITORING) 1 each PRN DAILY PRN 07/18/19 11:45 07/20/19 11:44 DC Info (Icu Electrolyte Protocol) 1 ea CONT PRN PRN 07/17/19 13:15 Info (PHARMACY MONITORING -- do not chart) 1 each PRN DAILY PRN 08/12/19 15:45 09/13/19 14:14 DC Info (Tpn Per Pharmacy) 1 each PRN DAILY PRN 07/06/19 12:30 UNV Insulin Human Lispro (HumaLOG) 0-9 UNITS Q6HRS 07/04/19 09:30 09/26/19 18:27 4 UNITS Insulin Human Regular (HumuLIN R VIAL) 5 unit 1X ONCE 07/05/19 22:30 07/05/19 22:31 DC 07/05/19 22:14 5 UNIT Iohexol (Omnipaque 240 Mg/ml) 30 ml 1X ONCE 07/18/19 11:30 07/18/19 11:33 DC 07/18/19 11:30 30 ML Iohexol (Omnipaque 300 Mg/ml) 50 ml STK-MED ONCE 08/15/19 10:58 08/15/19 10:59 DC Iohexol (Omnipaque 350 Mg/ml) 90 ml 1X ONCE 07/04/19 03:30 07/04/19 03:31 DC 07/04/19 03:25 90 ML Ketorolac Tromethamine (Toradol 30mg Vial) 30 mg 1X ONCE 07/04/19 03:00 07/04/19 03:01 DC 07/04/19 02:54 30 MG Lidocaine HCl (Buffered Lidocaine 1%) 6 ml 1X ONCE 08/30/19 14:15 08/30/19 14:16 DC 08/30/19 14:15 3 ML Lidocaine HCl (Glydo (Lidocaine) Jelly) 1 ramu 1X ONCE 07/08/19 14:30 07/08/19 14:31 DC 07/08/19 16:38 1 RAMU Lidocaine HCl (Lidocaine 1% 20ml Vial) 20 ml 1X ONCE 09/25/19 15:00 09/25/19 15:01 DC 09/25/19 15:30 20 ML Lidocaine HCl (Xylocaine-Mpf 1% 2ml Vial) 2 ml PRN 1X PRN 08/15/19 07:00 08/16/19 06:59 DC Linezolid/Dextrose 300 ml @ 300 mls/hr Q12HR 09/04/19 09:00 09/07/19 08:11 DC 09/06/19 21:08 300 MLS/HR Lorazepam (Ativan Inj) 0.25 mg PRN Q4HRS PRN 09/21/19 07:30 09/27/19 03:31 0.25 MG Magnesium Sulfate 50 ml @ 25 mls/hr 1X ONCE 08/28/19 09:00 08/28/19 10:59 DC 08/28/19 10:44 25 MLS/HR Meropenem 1 gm/ Sodium Chloride 100 ml @ 200 mls/hr Q12HR 09/25/19 21:00 09/26/19 20:55 200 MLS/HR Meropenem 500 mg/ Sodium Chloride 50 ml @ 100 mls/hr Q6HRS 09/12/19 18:00 09/14/19 09:59 DC 09/14/19 06:02 100 MLS/HR Metoclopramide HCl (Reglan Vial) 10 mg PRN Q3HRS PRN 08/27/19 16:45 09/01/19 04:25 10 MG Metoprolol Tartrate (Lopressor Vial) 5 mg 1X ONCE 09/04/19 15:15 09/04/19 15:16 DC 09/04/19 15:31 5 MG Metronidazole 100 ml @ 100 mls/hr Q8HRS 08/02/19 10:00 08/09/19 08:10 DC 08/09/19 06:04 100 MLS/HR Micafungin Sodium 100 mg/Dextrose 100 ml @ 100 mls/hr Q24H 09/25/19 11:00 09/26/19 11:50 100 MLS/HR Midazolam HCl (Versed) 2 mg 1X ONCE 09/25/19 15:00 09/25/19 15:01 DC 09/25/19 15:28 1 MG Midazolam HCl 100 mg/Sodium Chloride 100 ml @ 7 mls/hr CONT PRN 07/16/19 16:00 09/21/19 14:38 DC 07/27/19 15:35 7 MLS/HR Midazolam HCl 50 mg/Sodium Chloride 50 ml @ 0 mls/hr CONT PRN 07/11/19 08:15 07/16/19 15:59 DC 07/14/19 22:39 7 MLS/HR Morphine Sulfate (Morphine Sulfate) 2 mg PRN Q2HR PRN 07/04/19 05:00 07/05/19 14:15 DC 07/05/19 12:26 2 MG Multi-Ingred Cream/Lotion/Oil/ Oint (Artificial Tears Eye Ointment) 1 ramu PRN Q1HR PRN 07/13/19 17:30 09/21/19 14:39 DC 08/01/19 08:19 1 RAMU Naloxone HCl (Narcan) 0.4 mg STK-MED ONCE 09/25/19 14:48 09/25/19 14:48 DC Norepinephrine Bitartrate 8 mg/ Dextrose 258 ml @ 13.332 mls/ hr CONT PRN 09/25/19 06:30 09/25/19 21:46 13.332 MLS/HR Ondansetron HCl (Zofran) 4 mg STK-MED ONCE 08/15/19 10:56 08/15/19 10:57 DC Pantoprazole Sodium (PROTONIX VIAL for IV PUSH) 40 mg DAILYAC 07/04/19 11:30 09/26/19 07:46 40 MG Phenylephrine HCl (PHENYLEPHRINE in 0.9% NACL PF) 1 mg STK-MED ONCE 08/15/19 12:34 08/15/19 12:34 DC Piperacillin Sod/ Tazobactam Sod 3.375 gm/Sodium Chloride 50 ml @ 100 mls/hr Q6HRS 09/14/19 12:00 09/22/19 07:26 DC 09/22/19 06:10 100 MLS/HR Piperacillin Sod/ Tazobactam Sod 4.5 gm/Sodium Chloride 100 ml @ 200 mls/hr 1X ONCE 07/04/19 06:00 07/04/19 06:29 DC 07/04/19 05:44 200 MLS/HR Potassium Chloride 110 meq/ Magnesium Sulfate 20 meq/ Multivitamins 10 ml/Chromium/ Copper/Manganese/ Seleni/Zn 1 ml/ Insulin Human Regular 15 unit/ Total Parenteral Nutrition/Amino Acids/Dextrose/ Fat Emulsion Intravenous 1,800 ml @ 75 mls/hr TPN CONT 09/11/19 22:00 09/12/19 21:59 DC 09/11/19 22:48 75 MLS/HR Potassium Chloride 15 meq/ Bicarbonate Dialysis Soln w/ out KCl 5,007.5 ml @ 1,000 mls/ hr Q5H1M 07/17/19 20:00 07/21/19 13:08 DC 07/20/19 18:14 1,000 MLS/HR Potassium Chloride 20 meq/ Bicarbonate Dialysis Soln w/ out KCl 5,010 ml @ 1,000 mls/hr Q5H1M 07/13/19 16:00 07/17/19 19:59 DC 07/17/19 14:54 1,000 MLS/HR Potassium Chloride 40 meq/ Potassium Acetate 60 meq/Magnesium Sulfate 10 meq/ Multivitamins 10 ml/Chromium/ Copper/Manganese/ Seleni/Zn 1 ml/ Insulin Human Regular 20 unit/ Total Parenteral Nutrition/Amino Acids/Dextrose/ Fat Emulsion Intravenous 1,800 ml @ 75 mls/hr TPN CONT 09/22/19 22:00 09/23/19 21:59 DC 09/23/19 00:03 75 MLS/HR Potassium Chloride 70 meq/ Magnesium Sulfate 20 meq/ Multivitamins 10 ml/Chromium/ Copper/Manganese/ Seleni/Zn 1 ml/ Insulin Human Regular 15 unit/ Total Parenteral Nutrition/Amino Acids/Dextrose/ Fat Emulsion Intravenous 1,800 ml @ 75 mls/hr TPN CONT 09/16/19 22:00 09/17/19 21:59 DC 09/16/19 23:13 75 MLS/HR Potassium Chloride 75 meq/ Magnesium Sulfate 15 meq/ Multivitamins 10 ml/Chromium/ Copper/Manganese/ Seleni/Zn 0.5 ml/ Insulin Human Regular 15 unit/ Total Parenteral Nutrition/Amino Acids/Dextrose/ Fat Emulsion Intravenous 1,920 ml @ 80 mls/hr TPN CONT 08/27/19 22:00 08/28/19 21:59 DC 08/27/19 22:41 80 MLS/HR Potassium Chloride 75 meq/ Magnesium Sulfate 15 meq/Calcium Gluconate 8 meq/ Multivitamins 10 ml/Chromium/ Copper/Manganese/ Seleni/Zn 0.5 ml/ Insulin Human Regular 15 unit/ Total Parenteral Nutrition/Amino Acids/Dextrose/ Fat Emulsion Intravenous 1,920 ml @ 80 mls/hr TPN CONT 08/25/19 22:00 08/26/19 21:59 DC 08/25/19 22:28 80 MLS/HR Potassium Chloride 75 meq/ Magnesium Sulfate 15 meq/Calcium Gluconate 8 meq/ Multivitamins 10 ml/Chromium/ Copper/Manganese/ Seleni/Zn 0.5 ml/ Insulin Human Regular 20 unit/ Total Parenteral Nutrition/Amino Acids/Dextrose/ Fat Emulsion Intravenous 1,920 ml @ 80 mls/hr TPN CONT 08/24/19 22:00 08/25/19 21:59 DC 08/24/19 22:00 80 MLS/HR Potassium Chloride 75 meq/ Magnesium Sulfate 15 meq/Calcium Gluconate 8 meq/ Multivitamins 10 ml/Chromium/ Copper/Manganese/ Seleni/Zn 0.5 ml/ Insulin Human Regular 25 unit/ Total Parenteral Nutrition/Amino Acids/Dextrose/ Fat Emulsion Intravenous 1,920 ml @ 80 mls/hr TPN CONT 08/22/19 22:00 08/23/19 21:59 DC 08/22/19 23:08 80 MLS/HR Potassium Chloride 75 meq/ Magnesium Sulfate 20 meq/Calcium Gluconate 10 meq/ Multivitamins 10 ml/Chromium/ Copper/Manganese/ Seleni/Zn 0.5 ml/ Insulin Human Regular 25 unit/ Total Parenteral Nutrition/Amino Acids/Dextrose/ Fat Emulsion Intravenous 1,920 ml @ 80 mls/hr TPN CONT 08/21/19 22:00 08/22/19 21:59 DC 08/21/19 22:04 80 MLS/HR Potassium Chloride 75 meq/ Magnesium Sulfate 20 meq/Calcium Gluconate 10 meq/ Multivitamins 10 ml/Chromium/ Copper/Manganese/ Seleni/Zn 0.5 ml/ Insulin Human Regular 30 unit/ Total Parenteral Nutrition/Amino Acids/Dextrose/ Fat Emulsion Intravenous 1,920 ml @ 80 mls/hr TPN CONT 08/20/19 22:00 08/21/19 22:00 DC 08/20/19 21:51 80 MLS/HR Potassium Chloride 80 meq/ Magnesium Sulfate 20 meq/ Multivitamins 10 ml/Chromium/ Copper/Manganese/ Seleni/Zn 0.5 ml/ Insulin Human Regular 15 unit/ Total Parenteral Nutrition/Amino Acids/Dextrose/ Fat Emulsion Intravenous 1,920 ml @ 80 mls/hr TPN CONT 08/30/19 22:00 08/31/19 21:59 DC 08/30/19 21:40 80 MLS/HR Potassium Chloride 80 meq/ Magnesium Sulfate 20 meq/ Multivitamins 10 ml/Chromium/ Copper/Manganese/ Seleni/Zn 1 ml/ Insulin Human Regular 15 unit/ Total Parenteral Nutrition/Amino Acids/Dextrose/ Fat Emulsion Intravenous 1,800 ml @ 75 mls/hr TPN CONT 09/18/19 22:00 09/19/19 21:59 DC 09/18/19 21:54 75 MLS/HR Potassium Chloride 90 meq/ Magnesium Sulfate 20 meq/ Multivitamins 10 ml/Chromium/ Copper/Manganese/ Seleni/Zn 1 ml/ Insulin Human Regular 15 unit/ Total Parenteral Nutrition/Amino Acids/Dextrose/ Fat Emulsion Intravenous 1,800 ml @ 75 mls/hr TPN CONT 09/07/19 22:00 09/08/19 21:59 DC 09/07/19 22:28 75 MLS/HR Potassium Chloride 90 meq/ Magnesium Sulfate 20 meq/ Multivitamins 10 ml/Chromium/ Copper/Manganese/ Seleni/Zn 1 ml/ Insulin Human Regular 20 unit/ Total Parenteral Nutrition/Amino Acids/Dextrose/ Fat Emulsion Intravenous 1,800 ml @ 75 mls/hr TPN CONT 09/21/19 22:00 09/22/19 21:59 DC 09/21/19 23:13 75 MLS/HR Potassium Chloride/Water 100 ml @ 100 mls/hr 1X ONCE 09/19/19 10:00 09/19/19 10:59 DC 09/19/19 10:15 100 MLS/HR Potassium Phosphate 20 mmol/ Sodium Chloride 106.6667 ml @ 51.667 m... 1X ONCE 07/13/19 13:00 07/13/19 15:03 DC 07/13/19 12:51 51.667 MLS/HR Potassium Acetate 30 meq/Magnesium Sulfate 20 meq/ Calcium Gluconate 10 meq/ Multivitamins 10 ml/Chromium/ Copper/Manganese/ Seleni/Zn 0.5 ml/ Insulin Human Regular 30 unit/ Potassium Chloride 30 meq/ Total Parenteral Nutrition/Amino Acids/Dextrose/ Fat Emulsion Intravenous 1,920 ml @ 80 mls/hr TPN CONT 08/19/19 22:00 08/20/19 21:59 DC 08/19/19 22:34 80 MLS/HR Potassium Acetate 40 meq/Magnesium Sulfate 5 meq/ Multivitamins 10 ml/Chromium/ Copper/Manganese/ Seleni/Zn 1 ml/ Insulin Human Regular 30 unit/ Total Parenteral Nutrition/Amino Acids/Dextrose/ Fat Emulsion Intravenous 1,920 ml @ 80 mls/hr TPN CONT 09/26/19 22:00 09/27/19 21:59 09/26/19 22:28 80 MLS/HR Potassium Acetate 55 meq/Magnesium Sulfate 20 meq/ Calcium Gluconate 10 meq/ Multivitamins 10 ml/Chromium/ Copper/Manganese/ Seleni/Zn 0.5 ml/ Insulin Human Regular 30 unit/ Total Parenteral Nutrition/Amino Acids/Dextrose/ Fat Emulsion Intravenous 1,920 ml @ 80 mls/hr TPN CONT 08/18/19 22:00 08/19/19 21:59 DC 08/19/19 01:00 80 MLS/HR Potassium Acetate 55 meq/Magnesium Sulfate 20 meq/ Calcium Gluconate 10 meq/ Multivitamins 10 ml/Chromium/ Copper/Manganese/ Seleni/Zn 0.5 ml/ Insulin Human Regular 35 unit/ Total Parenteral Nutrition/Amino Acids/Dextrose/ Fat Emulsion Intravenous 1,920 ml @ 80 mls/hr TPN CONT 08/16/19 22:00 08/17/19 21:59 DC 08/16/19 22:02 80 MLS/HR Potassium Acetate 60 meq/Magnesium Sulfate 5 meq/ Multivitamins 10 ml/Chromium/ Copper/Manganese/ Seleni/Zn 1 ml/ Insulin Human Regular 30 unit/ Total Parenteral Nutrition/Amino Acids/Dextrose/ Fat Emulsion Intravenous 1,920 ml @ 80 mls/hr TPN CONT 09/24/19 22:00 09/25/19 21:59 DC 09/24/19 21:54 80 MLS/HR Potassium Acetate 65 meq/Magnesium Sulfate 20 meq/ Calcium Gluconate 10 meq/ Multivitamins 10 ml/Chromium/ Copper/Manganese/ Seleni/Zn 0.5 ml/ Insulin Human Regular 30 unit/ Total Parenteral Nutrition/Amino Acids/Dextrose/ Fat Emulsion Intravenous 1,920 ml @ 80 mls/hr TPN CONT 08/17/19 22:00 08/18/19 21:59 DC 08/17/19 22:22 80 MLS/HR Potassium Acetate 80 meq/Magnesium Sulfate 5 meq/ Multivitamins 10 ml/Chromium/ Copper/Manganese/ Seleni/Zn 1 ml/ Insulin Human Regular 20 unit/ Total Parenteral Nutrition/Amino Acids/Dextrose/ Fat Emulsion Intravenous 1,920 ml @ 80 mls/hr TPN CONT 09/23/19 22:00 09/24/19 21:59 DC 09/23/19 21:59 80 MLS/HR Prochlorperazine Edisylate (Compazine) 5 mg PACU PRN PRN 08/15/19 07:00 08/16/19 06:59 DC Propofol 20 ml @ As Directed STK-MED ONCE 08/15/19 12:26 08/15/19 12:27 DC Ringer's Solution 1,000 ml @ 30 mls/hr Q24H 08/15/19 07:00 08/15/19 18:59 DC Rocuronium [place] (Zemuron) 50 mg STK-MED ONCE 08/15/19 10:56 08/15/19 10:57 DC Saliva Substitute (Biotene Moisturizing Mouth) 2 spray PRN Q15MIN PRN 09/08/19 11:00 Sevoflurane (Ultane) 60 ml STK-MED ONCE 08/15/19 12:26 08/15/19 12:27 DC Sodium Bicarbonate 50 meq/Sodium Chloride 1,050 ml @ 75 mls/hr Q14H 07/06/19 07:30 07/11/19 10:28 DC 07/10/19 21:10 75 MLS/HR Sodium Acetate 50 meq/Potassium Acetate 55 meq/ Magnesium Sulfate 20 meq/Calcium Gluconate 10 meq/ Multivitamins 10 ml/Chromium/ Copper/Manganese/ Seleni/Zn 0.5 ml/ Insulin Human Regular 35 unit/ Total Parenteral Nutrition/Amino Acids/Dextrose/ Fat Emulsion Intravenous 1,800 ml @ 75 mls/hr TPN CONT 08/13/19 22:00 08/14/19 21:59 DC 08/13/19 22:03 75 MLS/HR Sodium Bicarbonate (Sodium Bicarb Adult 8.4% Syr) 50 meq 1X ONCE 09/25/19 22:00 09/25/19 22:01 DC 09/25/19 21:47 50 MEQ Sodium Chloride 500 ml @ 500 mls/hr 1X ONCE 09/27/19 06:45 09/27/19 07:44 DC 09/27/19 06:39 500 MLS/HR Sodium Chloride (Normal Saline Flush) 3 ml QSHIFT PRN 08/15/19 13:45 Sodium Chloride 90 meq/Calcium Gluconate 10 meq/ Multivitamins 10 ml/Chromium/ Copper/Manganese/ Seleni/Zn 0.5 ml/ Total Parenteral Nutrition/Amino Acids/Dextrose/ Fat Emulsion Intravenous 1,512 ml @ 63 mls/hr TPN CONT 07/06/19 22:00 07/07/19 21:59 DC 07/06/19 22:06 63 MLS/HR Sodium Chloride 90 meq/Calcium Gluconate 10 meq/ Multivitamins 10 ml/Chromium/ Copper/Manganese/ Seleni/Zn 1 ml/ Total Parenteral Nutrition/Amino Acids/Dextrose/ Fat Emulsion Intravenous 55.005 ml @ 2.292 mls/hr TPN CONT 07/06/19 22:00 07/06/19 12:33 DC Sodium Chloride 90 meq/Magnesium Sulfate 10 meq/ Calcium Gluconate 20 meq/ Multivitamins 10 ml/Chromium/ Copper/Manganese/ Seleni/Zn 0.5 ml/ Total Parenteral Nutrition/Amino Acids/Dextrose/ Fat Emulsion Intravenous 1,512 ml @ 63 mls/hr TPN CONT 07/07/19 22:00 07/08/19 21:59 DC 07/07/19 22:25 63 MLS/HR Sodium Chloride 90 meq/Magnesium Sulfate 12 meq/ Calcium Gluconate 15 meq/ Multivitamins 10 ml/Chromium/ Copper/Manganese/ Seleni/Zn 0.5 ml/ Insulin Human Regular 25 unit/ Total Parenteral Nutrition/Amino Acids/Dextrose/ Fat Emulsion Intravenous 1,400 ml @ 58.333 mls/ hr TPN CONT 07/27/19 22:00 07/28/19 21:59 DC 07/27/19 21:41 58.333 MLS/HR Sodium Chloride 90 meq/Potassium Chloride 15 meq/ Magnesium Sulfate 12 meq/Calcium Gluconate 15 meq/ Multivitamins 10 ml/Chromium/ Copper/Manganese/ Seleni/Zn 0.5 ml/ Insulin Human Regular 25 unit/ Total Parenteral Nutrition/Amino Acids/Dextrose/ Fat Emulsion Intravenous 1,400 ml @ 58.333 mls/ hr TPN CONT 07/26/19 22:00 07/27/19 21:59 DC 07/26/19 22:13 58.333 MLS/HR Sodium Chloride 90 meq/Potassium Chloride 15 meq/ Potassium Phosphate 10 mmol/ Magnesium Sulfate 8 meq/Calcium Gluconate 15 meq/ Multivitamins 10 ml/Chromium/ Copper/Manganese/ Seleni/Zn 0.5 ml/ Insulin Human Regular 25 unit/ Total Parenteral Nutrition/Amino Acids/Dextrose/ Fat Emulsion Intravenous 1,400 ml @ 58.333 mls/ hr TPN CONT 07/24/19 22:00 07/25/19 21:59 DC 07/24/19 21:20 58.333 MLS/HR Sodium Chloride 90 meq/Potassium Chloride 15 meq/ Potassium Phosphate 10 mmol/ Magnesium Sulfate 10 meq/Calcium Gluconate 20 meq/ Multivitamins 10 ml/Chromium/ Copper/Manganese/ Seleni/Zn 0.5 ml/ Total Parenteral Nutrition/Amino Acids/Dextrose/ Fat Emulsion Intravenous 1,400 ml @ 58.333 mls/ hr TPN CONT 07/11/19 22:00 07/12/19 21:59 DC 07/11/19 21:42 58.333 MLS/HR Sodium Chloride 90 meq/Potassium Chloride 15 meq/ Potassium Phosphate 10 mmol/ Magnesium Sulfate 12 meq/Calcium Gluconate 15 meq/ Multivitamins 10 ml/Chromium/ Copper/Manganese/ Seleni/Zn 0.5 ml/ Insulin Human Regular 25 unit/ Total Parenteral Nutrition/Amino Acids/Dextrose/ Fat Emulsion Intravenous 1,400 ml @ 58.333 mls/ hr TPN CONT 07/25/19 22:00 07/26/19 21:59 DC 07/25/19 22:24 58.333 MLS/HR Sodium Chloride 90 meq/Potassium Chloride 15 meq/ Potassium Phosphate 15 mmol/ Magnesium Sulfate 10 meq/Calcium Gluconate 15 meq/ Multivitamins 10 ml/Chromium/ Copper/Manganese/ Seleni/Zn 0.5 ml/ Total Parenteral Nutrition/Amino Acids/Dextrose/ Fat Emulsion Intravenous 1,400 ml @ 58.333 mls/ hr TPN CONT 07/12/19 22:00 07/13/19 21:59 DC 07/12/19 22:17 58.333 MLS/HR Sodium Chloride 90 meq/Potassium Chloride 15 meq/ Potassium Phosphate 15 mmol/ Magnesium Sulfate 10 meq/Calcium Gluconate 20 meq/ Multivitamins 10 ml/Chromium/ Copper/Manganese/ Seleni/Zn 0.5 ml/ Total Parenteral Nutrition/Amino Acids/Dextrose/ Fat Emulsion Intravenous 1,200 ml @ 50 mls/hr TPN CONT 07/10/19 22:00 07/10/19 14:17 DC Sodium Chloride 90 meq/Potassium Chloride 15 meq/ Potassium Phosphate 18 mmol/ Magnesium Sulfate 8 meq/Calcium Gluconate 15 meq/ Multivitamins 10 ml/Chromium/ Copper/Manganese/ Seleni/Zn 0.5 ml/ Insulin Human Regular 10 unit/ Total Parenteral Nutrition/Amino Acids/Dextrose/ Fat Emulsion Intravenous 1,400 ml @ 58.333 mls/ hr TPN CONT 07/15/19 22:00 07/16/19 21:59 DC 07/15/19 21:43 58.333 MLS/HR Sodium Chloride 90 meq/Potassium Chloride 15 meq/ Potassium Phosphate 18 mmol/ Magnesium Sulfate 8 meq/Calcium Gluconate 15 meq/ Multivitamins 10 ml/Chromium/ Copper/Manganese/ Seleni/Zn 0.5 ml/ Insulin Human Regular 15 unit/ Total Parenteral Nutrition/Amino Acids/Dextrose/ Fat Emulsion Intravenous 1,400 ml @ 58.333 mls/ hr TPN CONT 07/18/19 22:00 07/19/19 21:59 DC 07/18/19 21:47 58.333 MLS/HR Sodium Chloride 90 meq/Potassium Chloride 15 meq/ Potassium Phosphate 18 mmol/ Magnesium Sulfate 8 meq/Calcium Gluconate 15 meq/ Multivitamins 10 ml/Chromium/ Copper/Manganese/ Seleni/Zn 0.5 ml/ Insulin Human Regular 20 unit/ Total Parenteral Nutrition/Amino Acids/Dextrose/ Fat Emulsion Intravenous 1,400 ml @ 58.333 mls/ hr TPN CONT 07/21/19 22:00 07/22/19 21:59 DC 07/21/19 22:45 58.333 MLS/HR Sodium Chloride 90 meq/Potassium Chloride 15 meq/ Potassium Phosphate 18 mmol/ Magnesium Sulfate 8 meq/Calcium Gluconate 15 meq/ Multivitamins 10 ml/Chromium/ Copper/Manganese/ Seleni/Zn 0.5 ml/ Total Parenteral Nutrition/Amino Acids/Dextrose/ Fat Emulsion Intravenous 1,400 ml @ 58.333 mls/ hr TPN CONT 07/14/19 22:00 07/15/19 21:59 DC 07/14/19 22:00 58.333 MLS/HR Sodium Chloride 90 meq/Potassium Phosphate 15 mmol/ Magnesium Sulfate 12 meq/Calcium Gluconate 15 meq/ Multivitamins 10 ml/Chromium/ Copper/Manganese/ Seleni/Zn 0.5 ml/ Insulin Human Regular 30 unit/ Total Parenteral Nutrition/Amino Acids/Dextrose/ Fat Emulsion Intravenous 1,400 ml @ 58.333 mls/ hr TPN CONT 07/29/19 22:00 07/30/19 21:59 DC 07/29/19 21:49 58.333 MLS/HR Sodium Chloride 90 meq/Potassium Phosphate 15 mmol/ Magnesium Sulfate 12 meq/Calcium Gluconate 15 meq/ Multivitamins 10 ml/Chromium/ Copper/Manganese/ Seleni/Zn 0.5 ml/ Insulin Human Regular 40 unit/ Total Parenteral Nutrition/Amino Acids/Dextrose/ Fat Emulsion Intravenous 1,400 ml @ 58.333 mls/ hr TPN CONT 07/30/19 22:00 07/31/19 21:59 DC 07/30/19 21:21 58.333 MLS/HR Sodium Chloride 90 meq/Potassium Phosphate 19 mmol/ Magnesium Sulfate 12 meq/Calcium Gluconate 15 meq/ Multivitamins 10 ml/Chromium/ Copper/Manganese/ Seleni/Zn 0.5 ml/ Insulin Human Regular 40 unit/ Total Parenteral Nutrition/Amino Acids/Dextrose/ Fat Emulsion Intravenous 1,400 ml @ 58.333 mls/ hr TPN CONT 07/31/19 22:00 08/01/19 21:59 DC 07/31/19 21:54 58.333 MLS/HR Sodium Chloride 90 meq/Potassium Phosphate 5 mmol/ Magnesium Sulfate 12 meq/Calcium Gluconate 15 meq/ Multivitamins 10 ml/Chromium/ Copper/Manganese/ Seleni/Zn 0.5 ml/ Insulin Human Regular 30 unit/ Total Parenteral Nutrition/Amino Acids/Dextrose/ Fat Emulsion Intravenous 1,400 ml @ 58.333 mls/ hr TPN CONT 07/28/19 22:00 07/29/19 21:59 DC 07/28/19 22:08 58.333 MLS/HR Sodium Chloride 100 meq/Potassium Chloride 40 meq/ Magnesium Sulfate 15 meq/Calcium Gluconate 15 meq/ Multivitamins 10 ml/Chromium/ Copper/Manganese/ Seleni/Zn 0.5 ml/ Insulin Human Regular 35 unit/ Total Parenteral Nutrition/Amino Acids/Dextrose/ Fat Emulsion Intravenous 1,400 ml @ 58.333 mls/ hr TPN CONT 08/07/19 22:00 08/08/19 21:59 DC 08/07/19 22:46 58.333 MLS/HR Sodium Chloride 100 meq/Potassium Chloride 40 meq/ Magnesium Sulfate 20 meq/Calcium Gluconate 10 meq/ Multivitamins 10 ml/Chromium/ Copper/Manganese/ Seleni/Zn 0.5 ml/ Insulin Human Regular 35 unit/ Total Parenteral Nutrition/Amino Acids/Dextrose/ Fat Emulsion Intravenous 1,400 ml @ 58.333 mls/ hr TPN CONT 08/11/19 22:00 08/12/19 21:59 DC 08/12/19 00:06 58.333 MLS/HR Sodium Chloride 100 meq/Potassium Chloride 40 meq/ Magnesium Sulfate 20 meq/Calcium Gluconate 15 meq/ Multivitamins 10 ml/Chromium/ Copper/Manganese/ Seleni/Zn 0.5 ml/ Insulin Human Regular 35 unit/ Total Parenteral Nutrition/Amino Acids/Dextrose/ Fat Emulsion Intravenous 1,400 ml @ 58.333 mls/ hr TPN CONT 08/10/19 22:00 08/11/19 21:59 DC 08/10/19 22:27 58.333 MLS/HR Sodium Chloride 100 meq/Potassium Phosphate 10 mmol/ Magnesium Sulfate 12 meq/Calcium Gluconate 15 meq/ Multivitamins 10 ml/Chromium/ Copper/Manganese/ Seleni/Zn 0.5 ml/ Insulin Human Regular 35 unit/ Potassium Chloride 20 meq/ Total Parenteral Nutrition/Amino Acids/Dextrose/ Fat Emulsion Intravenous 1,400 ml @ 58.333 mls/ hr TPN CONT 08/04/19 22:00 08/05/19 21:59 DC 08/04/19 22:10 58.333 MLS/HR Sodium Chloride 100 meq/Potassium Phosphate 19 mmol/ Magnesium Sulfate 12 meq/Calcium Gluconate 15 meq/ Multivitamins 10 ml/Chromium/ Copper/Manganese/ Seleni/Zn 0.5 ml/ Insulin Human Regular 40 unit/ Potassium Chloride 20 meq/ Total Parenteral Nutrition/Amino Acids/Dextrose/ Fat Emulsion Intravenous 1,400 ml @ 58.333 mls/ hr TPN CONT 08/03/19 22:00 08/04/19 21:59 DC 08/03/19 21:20 58.333 MLS/HR Sodium Chloride 100 meq/Potassium Phosphate 5 mmol/ Magnesium Sulfate 12 meq/Calcium Gluconate 15 meq/ Multivitamins 10 ml/Chromium/ Copper/Manganese/ Seleni/Zn 0.5 ml/ Insulin Human Regular 35 unit/ Potassium Chloride 20 meq/ Total Parenteral Nutrition/Amino Acids/Dextrose/ Fat Emulsion Intravenous 1,400 ml @ 58.333 mls/ hr TPN CONT 08/05/19 22:00 08/06/19 21:59 DC 08/05/19 22:59 58.333 MLS/HR Succinylcholine Chloride (Anectine) 120 mg 1X ONCE 07/11/19 08:30 07/11/19 08:31 DC 07/11/19 08:34 120 MG Vecuronium [place] (Norcuron Bolus) 6 mg PRN Q6HRS PRN 08/25/19 19:15 08/25/19 19:35 DC Labs: Lab Laboratory Tests Test 09/26/19 08:15 09/26/19 11:00 09/26/19 11:55 09/26/19 18:25 O2 Saturation 98 % (92-99) Arterial Blood pH 7.34 (7.35-7.45) Arterial Blood pCO2 at Patient Temp 40 mmHg (35-46) Arterial Blood pO2 at Patient Temp 126 mmHg (75-108) Arterial Blood HCO3 21 mmol/L (21-28) Arterial Blood Base Excess -5 mmol/L (-3-3) FiO2 40% bipap Stool Occult Blood Negative (NEG) White Blood Count 11.8 x10^3/uL (4.0-11.0) Red Blood Count 2.93 x10^6/uL (3.50-5.40) Hemoglobin 8.6 g/dL (12.0-15.5) Hematocrit 26.0 % (36.0-47.0) Mean Corpuscular Volume 89 fL (79-100) Mean Corpuscular Hemoglobin 29 pg (25-35) Mean Corpuscular Hemoglobin Concent 33 g/dL (31-37) Red Cell Distribution Width 16.8 % (11.5-14.5) Platelet Count 292 x10^3/uL (140-400) Glucose (Fingerstick) 203 mg/dL (70-99) 190 mg/dL (70-99) Test 09/27/19 00:16 09/27/19 04:00 09/27/19 05:24 09/27/19 06:22 Glucose (Fingerstick) 126 mg/dL (70-99) 131 mg/dL (70-99) White Blood Count 8.0 x10^3/uL (4.0-11.0) Red Blood Count 2.92 x10^6/uL (3.50-5.40) Hemoglobin 8.6 g/dL (12.0-15.5) Hematocrit 26.2 % (36.0-47.0) Mean Corpuscular Volume 90 fL (79-100) Mean Corpuscular Hemoglobin 30 pg (25-35) Mean Corpuscular Hemoglobin Concent 33 g/dL (31-37) Red Cell Distribution Width 17.4 % (11.5-14.5) Platelet Count 285 x10^3/uL (140-400) Neutrophils (%) (Auto) 77 % (31-73) Lymphocytes (%) (Auto) 16 % (24-48) Monocytes (%) (Auto) 5 % (0-9) Eosinophils (%) (Auto) 2 % (0-3) Basophils (%) (Auto) 0 % (0-3) Neutrophils # (Auto) 6.1 x10^3/uL (1.8-7.7) Lymphocytes # (Auto) 1.3 x10^3/uL (1.0-4.8) Monocytes # (Auto) 0.4 x10^3/uL (0.0-1.1) Eosinophils # (Auto) 0.2 x10^3/uL (0.0-0.7) Basophils # (Auto) 0.0 x10^3/uL (0.0-0.2) Sodium Level 150 mmol/L (136-145) Potassium Level 4.2 mmol/L (3.5-5.1) Chloride Level 118 mmol/L (98-107) Carbon Dioxide Level 23 mmol/L (21-32) Anion Gap 9 (6-14) Blood Urea Nitrogen 48 mg/dL (7-20) Creatinine 1.1 mg/dL (0.6-1.0) Estimated GFR (Cockcroft-Gault) 52.8 Glucose Level 165 mg/dL (70-99) Calcium Level 10.3 mg/dL (8.5-10.1) O2 Saturation 90 % (92-99) Arterial Blood pH 7.36 (7.35-7.45) Arterial Blood pCO2 at Patient Temp 36 mmHg (35-46) Arterial Blood pO2 at Patient Temp 63 mmHg (75-108) Arterial Blood HCO3 20 mmol/L (21-28) Arterial Blood Base Excess -5 mmol/L (-3-3) FiO2 33 Objective: Assessment: Fever intermittent could be from underlying pancreatitis vs aspiration pneumonia Acute pancreatitis with persistent necrosis CT a/p 07/27 Increased ascites. 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 Sequela of pancreatitis with extensive pseudocysts again demonstrated, the right-sided collections are slightly larger since the prior exam, the left-sided collections are stable. 09/24 fluid cult noted Cholelithiasis with thickening of the gallbladder wall. Leucocytosis JUANA,Hyperkalemia, Metabolic acidosis off dialysis Acute hypoxic resp failure ,bilateral pleural effusion and atelectasis hypocalcemia Prediabetes HTN s/p trach Plan: Plan of Care Continue meropenem, dose adjusted for renal function cont micafungin /dapto ( 09/24) Follow-up cultures and lab incluing fluid c/s GNR,yeast General surgery following Monitor drain output Maintain aspiration precaution Supportive care Prognosis poor Critically ill D/w nursing YUNIOR JONES MD Sep 27, 2019 08:04
--- NOTE | 2019-09-27 08:21 | PDOC ---
PROGRESS NOTES Chief Complaint Chief Complaint A/P: Acute hypoxic Respiratory failure requiring mechanical ventilation (now extubated for several days but still with tracheostomy) Tracheostomy bilateral pleural effusions/pulm edema Sepsis Severe Acute gallstone pancreatitis (not a surgical candidate at this time) with necrosis Acute kidney failure now requiring dialysis Salpingitis Gallstones (Calculus of gallbladder with acute cholecystitis without obstruction) HTN Leukocytosis Hypoxia Uterine fibroid Intractable pain Intractable nausea Covid 19 negative. Acute on chronic anemia EEG: No seizure activityFever - better currently - intermittent could be from underlying pancreatitis blood cults 08/21 - neg so far ? Ileus with vomiting Abd distention - U/S and CT reviewed s/p 0.4 L of opaque, debris-containing ascites was removed 08/23 Acute pancreatitis with persistent necrosis - 08/14 status post KAYLIN drain placement + C paropsilosis. s/p additional drains Anemia - S/p PRBCs Cholelithiasis with thickening of the gallbladder wall. Leucocytosis improving JUANA, hyperkalemia, Metabolic acidosis off dialysis Acute hypoxic resp failure ,bilateral pleural effusion and atelectasis hypocalcemia Prediabetes HTN s/p trach ESRD on HD Hyperglycemia FEN - PPX - SCDs, off lovenox currently FULL CODE Dispo - ICU, critically ill CC time 49 minutes History of Present Illness History of Present Illness 09/25: IR placed drain on 09/24. 4u PRBC after Hb drop. Hb 8.8 today. Off Levophed this morning. T-max 100.3. Much more lethargic today. CXR with left sided dif fuse infiltrates. Tachycardic overnight into the 140s. NGT clamped. On BIPAP currently. Drains with serosanguinous discharge. WBC 8, Tmax 99.6F. 09/23/2019 Patient seen and examined on telemetry floor today This morning I had a couple of discussions with case management The issue is the patient will not wear her trach cap Without that she cannot advance her diet and is currently supposed to be on honey thick liquids I was going to talk to the patient about wearing her trach But when I arrived to the room she was lying on the floor with several nurses and therapist around Apparently she did walk to the end of the meyer then back and then collapsed onto the floor She had a bowel movement when this all happened Appears to be critically ill again Very shaky tremulous anxious has a stare in her eyes We got her back in bed I am extremely concerned about her long-term prognosis again 09/22/2019 Patient seen and examined in the ICU She remains critically ill is is extremely weak Chart reviewed Discussed with RN We decided to try some Prozac as she does seem depressed On IV TPN Still has NG tube 09/21/2019 Patient seen and examined in the ICU She remains critically ill We have been trying to hold off on her Ativan for the past 24 hours She is a little more awake but shaky and agitated and anxious seems depressed Discussed with RN Chart reviewed 09/20/2019 Patient seen and examined in the ICU She is a little more alert today but still quite ill Appears clammy and pale and depressed/anxious Discussed with RN Chart reviewed 09/19/2019 Patient seen and examined in the ICU She appears extremely ill She is tachypneic at 35 respirations per minute and tachycardic at 132 bpm She is extremely encephalopathic and shaky She appears clammy Chart reviewed Discussed with RN Prognosis extremely guarded at best 09/18/2019 Patient still in ICU Resting with no apparent distress Chart reviewed 09/17/2019 Patient seen and examined in the ICU She is wiping her face with a cough Discussed with RN Chart reviewed We hope to get her out of the ICU later today if possible 09/16/2019 Patient seen and examined in the ICU once again She is back on NG suction On IV Zosyn Has IV TPN Sedated with Precedex but anxious still Appears somewhat clammy and pale Chart reviewed Discussed with RN She remains critically ill 09/15/2019 Patient seen and examined in the ICU She has an NG that is clamped we are hoping to start some clear liquids but she looks quite ill She is on IV TPN Meropenem changed to IV Zosyn (agree) She has Lind to bedside drainage She is semi-sedated with Precedex Chart reviewed Discussed with RN She remains critically ill Seen bedside. Hb 8. She was just a bit hypoxic, had a mucous plug suctioned. Able to vocalize well with speaking valve, tells me we are being very hard on her and she would like to be drugged back to sleep. She wants to wake up and feel better. On trach shield, T max 100.4. afebrile this a.m. 09/13/2019 Patient seen and examined in the ICU She is up in the chair very frail trying to talk a little shaky Discussed with RN Chart reviewed 09/12/2019 Patient seen and examined in the ICU Patient up in the chair Having a severe coughing episode with a lot of phlegm coming out of her tracheostomy Discussed with RN Discussed with physical therapy Chart reviewed 09/10,. feels well, has been out of room in wheelchair no complaint, still weak, some with not wanting to wear her valve on trach cont other, may be able to work with speech tomorrow, juan ramon OK to try, 09/09, anxiety is up today, she dislikes the valve still, shower and outside today . 09/08 she doesnt want to wear her passy-fantasma valve, discussed str and plan with her. speech following, needs swallow study, but needs to wear her valve longer, cont current able to walk some, walker 09/07 stronger, better, we discussed better oral care she would like to try swallow study, wants to try to eat, speech is following 09/07/2019 She remains in the ICU sitting up and working with OT, getting better if limit pain meds, may do better off the vent, Nurses trying to suction her, that is also improved, Chart reviewed 09/06/2019 Patient seen and examined in the ICU She had an episode yesterday of tachycardia and severe agitation we gave her some Ativan After that she seemed to have stroke symptoms but now that the Ativan has wore off her stroke symptoms have resolved She is on IV meropenem and daptomycin and micafungin Chart reviewed Discussed with RN Patient is still critically ill BRIEF OPERATIVE NOTE Pre-Op Diagnosis Pancreatitis with pseudocysts, suspected infection Post-Op Diagnosis same Procedure Performed CT abdominal Drains x 3 Surgeon Tesfaye Anesthesia Type: Conscious Sedation Findings 3 abdominal drains, 14F, with turbid pancreatic fluid and necrotic debris in each. Complications No immediate 08/26: Patient today somewhat restless and having bilious secretions from ET tube, imaging studies ordered, discussed with marine engineering consultant. Pretty poor prognosis, h opefully is not a fistula, poor surgical candidate. 08/27: Imaging with no acute events, she seems more stable today compared to yesterday. Encouraged as much activity as possible patient at high risk for severe depression. Vitals Vitals Vital Signs Date Time Temp Pulse Resp B/P (MAP) Pulse Ox O2 Delivery O2 Flow Rate FiO2 09/27/19 08:00 99.5 144 49 142/74 (96) 95 Tracheal Collar 10.0 99.5 Physical Exam Physical Exam GENERAL:lethargic, arousable though extremely weak HEENT: NGT in place. Oral mucosa dry NECK: Tracheostomy LUNGS: Diminished aeration bases, no accessory muscle use HEART: S1, S2, tachy, regular ABDOMEN: Mild distention, bowel sounds present, soft, grimaces to palpation Right lateral side drainage bag, 3 drains with bloodstained drainage : Lind ( 09/24) EXTREMITIES: Trace edema .no cyanosis SKIN: no signs of gen rash SWEET POTATO DISINTEGRATOR: Lethargic LUE-PICC (09/15) without signs of complications General: Alert, Cooperative Heart: Regular rate, Normal S1, Normal S2, No murmurs, Gallops Lungs: Other (diminshed in bases, Rhonci in LLL) Abdomen: Soft, Other (drains with bloody drainage) Extremities: No clubbing, No cyanosis, No edema, Normal pulses, No tenderness/swelling Skin: Other (warm, dry) Labs LABS Laboratory Tests Test 09/26/19 11:00 09/26/19 11:55 09/26/19 18:25 09/27/19 00:16 Stool Occult Blood Negative (NEG) White Blood Count 11.8 x10^3/uL (4.0-11.0) Red Blood Count 2.93 x10^6/uL (3.50-5.40) Hemoglobin 8.6 g/dL (12.0-15.5) Hematocrit 26.0 % (36.0-47.0) Mean Corpuscular Volume 89 fL (79-100) Mean Corpuscular Hemoglobin 29 pg (25-35) Mean Corpuscular Hemoglobin Concent 33 g/dL (31-37) Red Cell Distribution Width 16.8 % (11.5-14.5) Platelet Count 292 x10^3/uL (140-400) Glucose (Fingerstick) 203 mg/dL (70-99) 190 mg/dL (70-99) 126 mg/dL (70-99) Test 09/27/19 04:00 09/27/19 05:24 09/27/19 06:22 White Blood Count 8.0 x10^3/uL (4.0-11.0) Red Blood Count 2.92 x10^6/uL (3.50-5.40) Hemoglobin 8.6 g/dL (12.0-15.5) Hematocrit 26.2 % (36.0-47.0) Mean Corpuscular Volume 90 fL (79-100) Mean Corpuscular Hemoglobin 30 pg (25-35) Mean Corpuscular Hemoglobin Concent 33 g/dL (31-37) Red Cell Distribution Width 17.4 % (11.5-14.5) Platelet Count 285 x10^3/uL (140-400) Neutrophils (%) (Auto) 77 % (31-73) Lymphocytes (%) (Auto) 16 % (24-48) Monocytes (%) (Auto) 5 % (0-9) Eosinophils (%) (Auto) 2 % (0-3) Basophils (%) (Auto) 0 % (0-3) Neutrophils # (Auto) 6.1 x10^3/uL (1.8-7.7) Lymphocytes # (Auto) 1.3 x10^3/uL (1.0-4.8) Monocytes # (Auto) 0.4 x10^3/uL (0.0-1.1) Eosinophils # (Auto) 0.2 x10^3/uL (0.0-0.7) Basophils # (Auto) 0.0 x10^3/uL (0.0-0.2) Sodium Level 150 mmol/L (136-145) Potassium Level 4.2 mmol/L (3.5-5.1) Chloride Level 118 mmol/L (98-107) Carbon Dioxide Level 23 mmol/L (21-32) Anion Gap 9 (6-14) Blood Urea Nitrogen 48 mg/dL (7-20) Creatinine 1.1 mg/dL (0.6-1.0) Estimated GFR (Cockcroft-Gault) 52.8 Glucose Level 165 mg/dL (70-99) Calcium Level 10.3 mg/dL (8.5-10.1) O2 Saturation 90 % (92-99) Arterial Blood pH 7.36 (7.35-7.45) Arterial Blood pCO2 at Patient Temp 36 mmHg (35-46) Arterial Blood pO2 at Patient Temp 63 mmHg (75-108) Arterial Blood HCO3 20 mmol/L (21-28) Arterial Blood Base Excess -5 mmol/L (-3-3) FiO2 33 Glucose (Fingerstick) 131 mg/dL (70-99) Assessment and Plan Assessmemt and Plan Problems Medical Problems: (1) Acute pancreatitis Status: Acute (2) Cholelithiasis Status: Acute Comment Review of Relevant I have reviewed the following items kolby (where applicable) has been applied. Labs Laboratory Tests Test 09/25/19 11:30 09/25/19 13:20 09/25/19 18:05 09/25/19 18:30 Urine Collection Type Unknown Urine Color Yellow Urine Clarity Cloudy Urine pH 5.0 (<5.0-8.0) Urine Specific [place] 1.020 (1.000-1.030) Urine Protein 30 mg/dL (NEG-TRACE) Urine Glucose (UA) Negative mg/dL (NEG) Urine Ketones (Stick) Negative mg/dL (NEG) Urine Blood Negative (NEG) Urine Nitrite Negative (NEG) Urine Bilirubin Negative (NEG) Urine Urobilinogen Dipstick 0.2 mg/dL (0.2 mg/dL) Urine Leukocyte Esterase Small (NEG) Urine RBC 0 /HPF (0-2) Urine WBC 11-20 /HPF (0-4) Urine Squamous Epithelial Cells Mod /LPF Urine Transitional Epithelial Cells Mod /LPF Urine Amorphous Sediment Present /HPF Urine Bacteria Few /HPF (0-FEW) Urine Hyaline Casts Many /HPF Urine Granular Casts Many /HPF Urine Mucus Marked /LPF Urine Yeast Present /HPF White Blood Count 20.9 x10^3/uL (4.0-11.0) 21.2 x10^3/uL (4.0-11.0) Red Blood Count 3.23 x10^6/uL (3.50-5.40) 2.51 x10^6/uL (3.50-5.40) Hemoglobin 9.6 g/dL (12.0-15.5) 7.4 g/dL (12.0-15.5) Hematocrit 28.9 % (36.0-47.0) 22.6 % (36.0-47.0) Mean Corpuscular Volume 89 fL (79-100) 90 fL (79-100) Mean Corpuscular Hemoglobin 30 pg (25-35) 30 pg (25-35) Mean Corpuscular Hemoglobin Concent 33 g/dL (31-37) 33 g/dL (31-37) Red Cell Distribution Width 17.0 % (11.5-14.5) 17.3 % (11.5-14.5) Platelet Count 433 x10^3/uL (140-400) 310 x10^3/uL (140-400) O2 Saturation 95 % (92-99) Arterial Blood pH 7.25 (7.35-7.45) Arterial Blood pCO2 at Patient Temp 48 mmHg (35-46) Arterial Blood pO2 at Patient Temp 92 mmHg (75-108) Arterial Blood HCO3 21 mmol/L (21-28) Arterial Blood Base Excess -6 mmol/L (-3-3) FiO2 50 Test 09/25/19 18:37 09/25/19 20:45 09/26/19 00:30 09/26/19 00:45 Glucose (Fingerstick) 234 mg/dL (70-99) 320 mg/dL (70-99) O2 Saturation 97 % (92-99) Arterial Blood pH 7.27 (7.35-7.45) Arterial Blood pCO2 at Patient Temp 44 mmHg (35-46) Arterial Blood pO2 at Patient Temp 108 mmHg (75-108) Arterial Blood HCO3 20 mmol/L (21-28) Arterial Blood Base Excess -7 mmol/L (-3-3) FiO2 40 White Blood Count 19.8 x10^3/uL (4.0-11.0) Red Blood Count 3.14 x10^6/uL (3.50-5.40) Hemoglobin 9.4 g/dL (12.0-15.5) Hematocrit 28.0 % (36.0-47.0) Mean Corpuscular Volume 89 fL (79-100) Mean Corpuscular Hemoglobin 30 pg (25-35) Mean Corpuscular Hemoglobin Concent 34 g/dL (31-37) Red Cell Distribution Width 16.8 % (11.5-14.5) Platelet Count 325 x10^3/uL (140-400) Test 09/26/19 06:50 09/26/19 06:59 09/26/19 08:15 09/26/19 11:00 White Blood Count 13.8 x10^3/uL (4.0-11.0) Red Blood Count 3.03 x10^6/uL (3.50-5.40) Hemoglobin 8.8 g/dL (12.0-15.5) Hematocrit 26.9 % (36.0-47.0) Mean Corpuscular Volume 89 fL (79-100) Mean Corpuscular Hemoglobin 29 pg (25-35) Mean Corpuscular Hemoglobin Concent 33 g/dL (31-37) Red Cell Distribution Width 17.2 % (11.5-14.5) Platelet Count 311 x10^3/uL (140-400) Neutrophils (%) (Auto) 88 % (31-73) Lymphocytes (%) (Auto) 7 % (24-48) Monocytes (%) (Auto) 4 % (0-9) Eosinophils (%) (Auto) 1 % (0-3) Basophils (%) (Auto) 0 % (0-3) Neutrophils # (Auto) 12.1 x10^3/uL (1.8-7.7) Lymphocytes # (Auto) 0.9 x10^3/uL (1.0-4.8) Monocytes # (Auto) 0.6 x10^3/uL (0.0-1.1) Eosinophils # (Auto) 0.1 x10^3/uL (0.0-0.7) Basophils # (Auto) 0.0 x10^3/uL (0.0-0.2) Segmented Neutrophils % 63 % (35-66) Band Neutrophils % 25 % (0-9) Lymphocytes % 8 % (24-48) Monocytes % 4 % (0-10) Toxic Granulation Present Dohle Bodies Present Platelet Estimate Adequate (ADEQUATE) Anisocytosis Slight Sodium Level 151 mmol/L (136-145) Potassium Level 4.1 mmol/L (3.5-5.1) Chloride Level 118 mmol/L (98-107) Carbon Dioxide Level 25 mmol/L (21-32) Anion Gap 8 (6-14) Blood Urea Nitrogen 58 mg/dL (7-20) Creatinine 1.3 mg/dL (0.6-1.0) Estimated GFR (Cockcroft-Gault) 43.5 BUN/Creatinine Ratio 45 (6-20) Glucose Level 165 mg/dL (70-99) Calcium Level 9.9 mg/dL (8.5-10.1) Total Bilirubin 0.5 mg/dL (0.2-1.0) Aspartate Amino Transf (AST/SGOT) 15 U/L (15-37) Alanine Aminotransferase (ALT/SGPT) 12 U/L (14-59) Alkaline Phosphatase 95 U/L (46-116) Total Protein 5.3 g/dL (6.4-8.2) Albumin 1.5 g/dL (3.4-5.0) Albumin/Globulin Ratio 0.4 (1.0-1.7) Glucose (Fingerstick) 149 mg/dL (70-99) O2 Saturation 98 % (92-99) Arterial Blood pH 7.34 (7.35-7.45) Arterial Blood pCO2 at Patient Temp 40 mmHg (35-46) Arterial Blood pO2 at Patient Temp 126 mmHg (75-108) Arterial Blood HCO3 21 mmol/L (21-28) Arterial Blood Base Excess -5 mmol/L (-3-3) FiO2 40% bipap Stool Occult Blood Negative (NEG) Test 09/26/19 11:55 09/26/19 18:25 09/27/19 00:16 09/27/19 04:00 White Blood Count 11.8 x10^3/uL (4.0-11.0) 8.0 x10^3/uL (4.0-11.0) Red Blood Count 2.93 x10^6/uL (3.50-5.40) 2.92 x10^6/uL (3.50-5.40) Hemoglobin 8.6 g/dL (12.0-15.5) 8.6 g/dL (12.0-15.5) Hematocrit 26.0 % (36.0-47.0) 26.2 % (36.0-47.0) Mean Corpuscular Volume 89 fL (79-100) 90 fL (79-100) Mean Corpuscular Hemoglobin 29 pg (25-35) 30 pg (25-35) Mean Corpuscular Hemoglobin Concent 33 g/dL (31-37) 33 g/dL (31-37) Red Cell Distribution Width 16.8 % (11.5-14.5) 17.4 % (11.5-14.5) Platelet Count 292 x10^3/uL (140-400) 285 x10^3/uL (140-400) Glucose (Fingerstick) 203 mg/dL (70-99) 190 mg/dL (70-99) 126 mg/dL (70-99) Neutrophils (%) (Auto) 77 % (31-73) Lymphocytes (%) (Auto) 16 % (24-48) Monocytes (%) (Auto) 5 % (0-9) Eosinophils (%) (Auto) 2 % (0-3) Basophils (%) (Auto) 0 % (0-3) Neutrophils # (Auto) 6.1 x10^3/uL (1.8-7.7) Lymphocytes # (Auto) 1.3 x10^3/uL (1.0-4.8) Monocytes # (Auto) 0.4 x10^3/uL (0.0-1.1) Eosinophils # (Auto) 0.2 x10^3/uL (0.0-0.7) Basophils # (Auto) 0.0 x10^3/uL (0.0-0.2) Sodium Level 150 mmol/L (136-145) Potassium Level 4.2 mmol/L (3.5-5.1) Chloride Level 118 mmol/L (98-107) Carbon Dioxide Level 23 mmol/L (21-32) Anion Gap 9 (6-14) Blood Urea Nitrogen 48 mg/dL (7-20) Creatinine 1.1 mg/dL (0.6-1.0) Estimated GFR (Cockcroft-Gault) 52.8 Glucose Level 165 mg/dL (70-99) Calcium Level 10.3 mg/dL (8.5-10.1) Test 09/27/19 05:24 09/27/19 06:22 O2 Saturation 90 % (92-99) Arterial Blood pH 7.36 (7.35-7.45) Arterial Blood pCO2 at Patient Temp 36 mmHg (35-46) Arterial Blood pO2 at Patient Temp 63 mmHg (75-108) Arterial Blood HCO3 20 mmol/L (21-28) Arterial Blood Base Excess -5 mmol/L (-3-3) FiO2 33 Glucose (Fingerstick) 131 mg/dL (70-99) Laboratory Tests Test 09/26/19 11:00 09/26/19 11:55 09/26/19 18:25 09/27/19 00:16 Stool Occult Blood Negative (NEG) White Blood Count 11.8 x10^3/uL (4.0-11.0) Red Blood Count 2.93 x10^6/uL (3.50-5.40) Hemoglobin 8.6 g/dL (12.0-15.5) Hematocrit 26.0 % (36.0-47.0) Mean Corpuscular Volume 89 fL (79-100) Mean Corpuscular Hemoglobin 29 pg (25-35) Mean Corpuscular Hemoglobin Concent 33 g/dL (31-37) Red Cell Distribution Width 16.8 % (11.5-14.5) Platelet Count 292 x10^3/uL (140-400) Glucose (Fingerstick) 203 mg/dL (70-99) 190 mg/dL (70-99) 126 mg/dL (70-99) Test 09/27/19 04:00 09/27/19 05:24 09/27/19 06:22 White Blood Count 8.0 x10^3/uL (4.0-11.0) Red Blood Count 2.92 x10^6/uL (3.50-5.40) Hemoglobin 8.6 g/dL (12.0-15.5) Hematocrit 26.2 % (36.0-47.0) Mean Corpuscular Volume 90 fL (79-100) Mean Corpuscular Hemoglobin 30 pg (25-35) Mean Corpuscular Hemoglobin Concent 33 g/dL (31-37) Red Cell Distribution Width 17.4 % (11.5-14.5) Platelet Count 285 x10^3/uL (140-400) Neutrophils (%) (Auto) 77 % (31-73) Lymphocytes (%) (Auto) 16 % (24-48) Monocytes (%) (Auto) 5 % (0-9) Eosinophils (%) (Auto) 2 % (0-3) Basophils (%) (Auto) 0 % (0-3) Neutrophils # (Auto) 6.1 x10^3/uL (1.8-7.7) Lymphocytes # (Auto) 1.3 x10^3/uL (1.0-4.8) Monocytes # (Auto) 0.4 x10^3/uL (0.0-1.1) Eosinophils # (Auto) 0.2 x10^3/uL (0.0-0.7) Basophils # (Auto) 0.0 x10^3/uL (0.0-0.2) Sodium Level 150 mmol/L (136-145) Potassium Level 4.2 mmol/L (3.5-5.1) Chloride Level 118 mmol/L (98-107) Carbon Dioxide Level 23 mmol/L (21-32) Anion Gap 9 (6-14) Blood Urea Nitrogen 48 mg/dL (7-20) Creatinine 1.1 mg/dL (0.6-1.0) Estimated GFR (Cockcroft-Gault) 52.8 Glucose Level 165 mg/dL (70-99) Calcium Level 10.3 mg/dL (8.5-10.1) O2 Saturation 90 % (92-99) Arterial Blood pH 7.36 (7.35-7.45) Arterial Blood pCO2 at Patient Temp 36 mmHg (35-46) Arterial Blood pO2 at Patient Temp 63 mmHg (75-108) Arterial Blood HCO3 20 mmol/L (21-28) Arterial Blood Base Excess -5 mmol/L (-3-3) FiO2 33 Glucose (Fingerstick) 131 mg/dL (70-99) Microbiology 09/25/19 Gram Stain - Final, Resulted 09/25/19 Aerobic and Anaerobic Culture, Resulted Pending 09/25/19 Blood Culture - Preliminary, Resulted NO GROWTH AFTER 1 DAY 09/17/19 Gram Stain - Final, Complete 09/17/19 Aerobic Culture - Final, Complete 07/31/19 Urine Culture - Final, Complete 07/31/19 Urine Culture Result 1 (ALEXANDRA) - Final, Complete Medications Current Medications Sodium Chloride 1,000 ml @ 1,000 mls/hr Q1H IV Last administered on 07/04/19at 03:00; Start 07/04/19 at 03:00; Stop 07/04/19 at 03:59; Status DC Ondansetron HCl (Zofran) 4 mg 1X ONCE IVP Last administered on 07/04/19at 03:27; Start 07/04/19 at 03:00; Stop 07/04/19 at 03:01; Status DC Morphine Sulfate (Morphine Sulfate) 4 mg 1X ONCE IV ; Start 07/04/19 at 03:00; Stop 07/04/19 at 03:01; Status Cancel Ketorolac Tromethamine (Toradol 30mg Vial) 30 mg 1X ONCE IV Last administered on 07/04/19at 02:54; Start 07/04/19 at 03:00; Stop 07/04/19 at 03:01; Status DC Fentanyl Citrate (Fentanyl 2ml Vial) 25 mcg 1X ONCE IVP Last administered on 07/04/19at 03:23; Start 07/04/19 at 03:30; Stop 07/04/19 at 03:31; Status DC Fentanyl Citrate (Fentanyl 2ml Vial) 100 mcg STK-MED ONCE .ROUTE ; Start 07/04/19 at 03:18; Stop 07/04/19 at 03:18; Status DC Iohexol (Omnipaque 350 Mg/ml) 90 ml 1X ONCE IV Last administered on 07/04/19at 03:25; Start 07/04/19 at 03:30; Stop 07/04/19 at 03:31; Status DC Info (CONTRAST GIVEN -- Rx MONITORING) 1 each PRN DAILY PRN MC SEE COMMENTS; Start 07/04/19 at 03:30; Stop 07/06/19 at 03:29; Status DC Hydromorphone HCl (Dilaudid) 0.5 mg 1X ONCE IV Last administered on 07/04/19at 03:55; Start 07/04/19 at 04:30; Stop 07/04/19 at 04:32; Status DC Ondansetron HCl (Zofran) 4 mg PRN Q8HRS PRN IV NAUSEA/VOMITING 1ST CHOICE; Start 07/04/19 at 05:00; Stop 07/04/19 at 09:27; Status DC Morphine Sulfate (Morphine Sulfate) 2 mg PRN Q2HR PRN IV SEVERE PAIN 7-10 Last administered on 07/05/19at 12:26; Start 07/04/19 at 05:00; Stop 07/05/19 at 14:15; Status DC Sodium Chloride 1,000 ml @ 125 mls/hr Q8H IV Last administered on 07/04/19at 20:56; Start 07/04/19 at 05:00; Stop 07/05/19 at 04:59; Status DC Hydromorphone HCl (Dilaudid) 0.5 mg PRN Q3HRS PRN IV SEVERE PAIN 7-10 Last administered on 07/05/19at 10:06; Start 07/04/19 at 05:00; Stop 07/05/19 at 12:01; Status DC Piperacillin Sod/ Tazobactam Sod 4.5 gm/Sodium Chloride 100 ml @ 200 mls/hr 1X ONCE IV Last administered on 07/04/19at 05:44; Start 07/04/19 at 06:00; Stop 07/04/19 at 06:29; Status DC Ondansetron HCl (Zofran) 4 mg PRN Q4HRS PRN IV NAUSEA/VOMITING 1ST CHOICE Last administered on 09/26/19at 21:08; Start 07/04/19 at 09:30 Insulin Human Lispro (HumaLOG) 0-9 UNITS Q6HRS SQ Last administered on 09/26/19at 18:27; Start 07/04/19 at 09:30 Dextrose (Dextrose 50%-Water Syringe) 12.5 gm PRN Q15MIN PRN IV SEE COMMENTS; Start 07/04/19 at 09:30 Pantoprazole Sodium (PROTONIX VIAL for IV PUSH) 40 mg DAILYAC IVP Last administered on 09/26/19at 07:46; Start 07/04/19 at 11:30 Prochlorperazine Edisylate (Compazine) 10 mg PRN Q6HRS PRN IV NAUSEA/VOMITING, 2nd CHOICE Last administered on 09/27/19at 03:45; Start 07/04/19 at 17:45 Atenolol (Tenormin) 100 mg DAILY PO ; Start 07/05/19 at 09:00; Stop 07/04/19 at 20:08; Status DC Metoprolol Tartrate (Lopressor Vial) 2.5 mg Q6HRS IVP Last administered on 07/05/19at 05:51; Start 07/04/19 at 20:15; Stop 07/05/19 at 10:02; Status DC Metoprolol Tartrate (Lopressor Vial) 5 mg Q6HRS IVP Last administered on 07/14/19at 00:12; Start 07/05/19 at 10:15; Stop 07/16/19 at 08:48; Status DC Hydromorphone HCl (Dilaudid) 1 mg PRN Q3HRS PRN IV SEVERE PAIN 7-10 Last administered on 07/11/19at 05:13; Start 07/05/19 at 12:00; Stop 07/19/19 at 00:25; Status DC Lidocaine HCl (Buffered Lidocaine 1%) 3 ml STK-MED ONCE .ROUTE ; Start 07/05/19 at 12:55; Stop 07/05/19 at 12:56; Status DC Albumin Human 500 ml @ 125 mls/hr 1X ONCE IV Last administered on 07/05/19at 14:33; Start 07/05/19 at 14:30; Stop 07/05/19 at 18:32; Status DC Norepinephrine Bitartrate 8 mg/ Dextrose 258 ml @ 17.299 mls/ hr CONT PRN IV PER PROTOCOL Last administered on 08/02/19at 12:48; Start 07/05/19 at 15:30; Stop 08/05/19 at 09:19; Status DC Sodium Chloride 1,000 ml @ 125 mls/hr Q8H IV Last administered on 07/05/19at 21:04; Start 07/05/19 at 16:00; Stop 07/06/19 at 02:42; Status DC Albumin Human 500 ml @ 125 mls/hr PRN BID PRN IV After every 2L NSS & BP < 90mm Last administered on 09/24/19at 11:40; Start 07/05/19 at 16:00 Iohexol (Omnipaque 300 Mg/ml) 60 ml 1X ONCE IV Last administered on 07/05/19at 17:20; Start 07/05/19 at 17:00; Stop 07/05/19 at 17:01; Status DC Info (CONTRAST GIVEN -- Rx MONITORING) 1 each PRN DAILY PRN MC SEE COMMENTS; Start 07/05/19 at 17:00; Stop 07/07/19 at 16:59; Status DC Meropenem 1 gm/ Sodium Chloride 100 ml @ 200 mls/hr Q8HRS IV Last administered on 07/06/19at 05:45; Start 07/05/19 at 20:00; Stop 07/06/19 at 08:48; Status DC Furosemide (Lasix) 40 mg 1X ONCE IVP Last administered on 07/05/19at 22:12; Start 07/05/19 at 22:30; Stop 07/05/19 at 22:31; Status DC Calcium Chloride 1000 mg/Sodium Chloride 110 ml @ 220 mls/hr 1X ONCE IV Last administered on 07/05/19at 22:11; Start 07/05/19 at 22:30; Stop 07/05/19 at 22:59; Status DC Albuterol Sulfate (Ventolin Neb Soln) 2.5 mg 1X ONCE NEB Last administered on 07/06/19at 00:56; Start 07/05/19 at 22:30; Stop 07/05/19 at 22:31; Status DC Insulin Human Regular (HumuLIN R VIAL) 5 unit 1X ONCE IV Last administered on 07/05/19at 22:14; Start 07/05/19 at 22:30; Stop 07/05/19 at 22:31; Status DC Magnesium Sulfate 50 ml @ 25 mls/hr 1X ONCE IV Last administered on 07/06/19at 02:57; Start 07/06/19 at 03:00; Stop 07/06/19 at 04:59; Status DC Calcium Gluconate 1000 mg/Sodium Chloride 110 ml @ 220 mls/hr 1X ONCE IV Last administered on 07/06/19at 02:46; Start 07/06/19 at 03:00; Stop 07/06/19 at 03:29; Status DC Sodium Chloride 1,000 ml @ 200 mls/hr Q5H IV Last administered on 07/06/19at 02:46; Start 07/06/19 at 03:00; Stop 07/06/19 at 10:21; Status DC Calcium Gluconate 1000 mg/Sodium Chloride 110 ml @ 220 mls/hr 1X ONCE IV Last administered on 07/06/19at 03:21; Start 07/06/19 at 03:30; Stop 07/06/19 at 03:59; Status DC Sodium Bicarbonate 50 meq/Sodium Chloride 1,050 ml @ 75 mls/hr Q14H IV Last administered on 07/10/19at 21:10; Start 07/06/19 at 07:30; Stop 07/11/19 at 10:28; Status DC Calcium Gluconate 2000 mg/Sodium Chloride 120 ml @ 220 mls/hr 1X ONCE IV Last administered on 07/06/19at 09:05; Start 07/06/19 at 07:30; Stop 07/06/19 at 0 8:02; Status DC Lidocaine HCl (Xylocaine-Mpf 1% 2ml Vial) 2 ml STK-MED ONCE .ROUTE ; Start 07/06/19 at 08:47; Stop 07/06/19 at 08:47; Status DC Meropenem 500 mg/ Sodium Chloride 50 ml @ 100 mls/hr Q12HR IV Last administered on 07/11/19at 21:01; Start 07/06/19 at 18:00; Stop 07/12/19 at 07:58; Status DC Lidocaine HCl (Buffered Lidocaine 1%) 3 ml STK-MED ONCE .ROUTE ; Start 07/06/19 at 09:46; Stop 07/06/19 at 09:46; Status DC Lidocaine HCl (Buffered Lidocaine 1%) 6 ml 1X ONCE INJ Last administered on at 10:26; Start 07/06/19 at 10:15; Stop 07/06/19 at 10:16; Status DC Info (Tpn Per Pharmacy) 1 each PRN DAILY PRN MC SEE COMMENTS Last administered on 09/26/19at 13:14; Start 07/06/19 at 12:00 Sodium Chloride 1,000 ml @ 1,000 mls/hr Q1H PRN IV hypotension; Start 07/06/19 at 12:07; Stop 07/06/19 at 18:06; Status DC Diphenhydramine HCl (Benadryl) 25 mg 1X PRN PRN IV ITCHING; Start 07/06/19 at 12:15; Stop 07/07/19 at 12:14; Status DC Diphenhydramine HCl (Benadryl) 25 mg 1X PRN PRN IV ITCHING; Start 07/06/19 at 12:15; Stop 07/07/19 at 12:14; Status DC Sodium Chloride 1,000 ml @ 400 mls/hr Q2H30M PRN IV PATENCY; Start 07/06/19 at 12:07; Stop 07/07/19 at 00:06; Status DC Info (PHARMACY MONITORING -- do not chart) 1 each PRN DAILY PRN MC SEE COMMENTS ; Start 07/06/19 at 12:15; Stop 07/08/19 at 08:13; Status DC Sodium Chloride 90 meq/Calcium Gluconate 10 meq/ Multivitamins 10 ml/Chromium/ Copper/Manganese/ Seleni/Zn 1 ml/ Total Parenteral Nutrition/Amino Acids/Dextrose/ Fat Emulsion Intravenous 55.005 ml @ 2.292 mls/hr TPN CONT IV ; Start 07/06/19 at 22:00; Stop 07/06/19 at 12:33; Status DC Info (Tpn Per Pharmacy) 1 each PRN DAILY PRN MC SEE COMMENTS; Start 07/06/19 at 12:30; Status UNV Sodium Chloride 90 meq/Calcium Gluconate 10 meq/ Multivitamins 10 ml/Chromium/ Copper/Manganese/ Seleni/Zn 0.5 ml/ Total Parenteral Nutrition/Amino Acids/Dextrose/ Fat Emulsion Intravenous 1,512 ml @ 63 mls/hr TPN CONT IV Last administered on 07/06/19at 22:06; Start 07/06/19 at 22:00; Stop 07/07/19 at 21:59; Status DC Calcium Carbonate/ Glycine (Tums) 500 mg PRN AFTMEALHC PRN PO INDIGESTION; Start 07/06/19 at 17:45; Stop 08/31/19 at 10:25; Status DC Calcium Gluconate (Calcium Gluconate) 2,000 mg 1X ONCE IVP Last administered on 07/07/19at 02:19; Start 07/07/19 at 02:15; Stop 07/07/19 at 02:16; Status DC Calcium Chloride 3000 mg/Sodium Chloride 1,030 ml @ 50 mls/hr [id number] IV Last administered on 07/09/19at 02:17; Start 07/07/19 at 08:00; Stop 07/09/19 at 15:23; Status DC Lorazepam (Ativan Inj) 1 mg PRN Q4HRS PRN IVP ANXIETY / AGITATION, 2nd choic Last administered on 08/05/19at 03:51; Start 07/07/19 at 09:00; Stop 08/05/19 at 09:19; Status DC Sodium Chloride 1,000 ml @ 1,000 mls/hr Q1H PRN IV hypotension; Start 07/07/19 at 08:56; Stop 07/07/19 at 14:55; Status DC Albumin Human 200 ml @ 200 mls/hr 1X PRN PRN IV Hypotension; Start 07/07/19 at 09:00; Stop 07/07/19 at 14:59; Status DC Diphenhydramine HCl (Benadryl) 25 mg 1X PRN PRN IV ITCHING; Start 07/07/19 at 09:00; Stop 07/08/19 at 08:59; Status DC Diphenhydramine HCl (Benadryl) 25 mg 1X PRN PRN IV ITCHING; Start 07/07/19 at 09:00; Stop 07/08/19 at 08:59; Status DC Sodium Chloride 1,000 ml @ 400 mls/hr Q2H30M PRN IV PATENCY; Start 07/07/19 at 08:56; Stop 07/07/19 at 20:55; Status DC Info (PHARMACY MONITORING -- do not chart) 1 each PRN DAILY PRN MC SEE COMMENTS; Start 07/07/19 at 09:00; Status UNV Info (PHARMACY MONITORING -- do not chart) 1 each PRN DAILY PRN MC SEE COMMENTS; Start 07/07/19 at 09:00; Stop 07/08/19 at 08:13; Status DC Digoxin (Lanoxin) 500 mcg 1X ONCE IV Last administered on 07/07/19at 10:04; Start 07/07/19 at 10:00; Stop 07/07/19 at 10:01; Status DC Digoxin (Lanoxin) 125 mcg 1X ONCE IV Last administered on 07/07/19at 17:10; Start 07/07/19 at 18:00; Stop 07/07/19 at 18:01; Status DC Magnesium Sulfate 100 ml @ 25 mls/hr 1X ONCE IV Last administered on 07/07/19at 12:48; Start 07/07/19 at 13:00; Stop 07/07/19 at 16:59; Status DC Sodium Chloride 90 meq/Magnesium Sulfate 10 meq/ Calcium Gluconate 20 meq/ Multivitamins 10 ml/Chromium/ Copper/Manganese/ Seleni/Zn 0.5 ml/ Total Parenteral Nutrition/Amino Acids/Dextrose/ Fat Emulsion Intravenous 1,512 ml @ 63 mls/hr TPN CONT IV Last administered on 07/07/19at 22:25; Start 07/07/19 at 22:00; Stop 07/08/19 at 21:59; Status DC Sodium Chloride 1,000 ml @ 1,000 mls/hr Q1H PRN IV hypotension; Start 07/08/19 at 08:05; Stop 07/08/19 at 14:04; Status DC Albumin Human 200 ml @ 200 mls/hr 1X ONCE IV Last administered on 07/08/19at 08:57; Start 07/08/19 at 08:15; Stop 07/08/19 at 09:14; Status DC Diphenhydramine HCl (Benadryl) 25 mg 1X PRN PRN IV ITCHING; Start 07/08/19 at 08:15; Stop 07/09/19 at 08:14; Status DC Diphenhydramine HCl (Benadryl) 25 mg 1X PRN PRN IV ITCHING; Start 07/08/19 at 08:15; Stop 07/09/19 at 08:14; Status DC Sodium Chloride 1,000 ml @ 400 mls/hr Q2H30M PRN IV PATENCY; Start 07/08/19 at 08:05; Stop 07/08/19 at 20:04; Status DC Info (PHARMACY MONITORING -- do not chart) 1 each PRN DAILY PRN MC SEE COMMENTS; Start 07/08/19 at 08:15; Stop 07/12/19 at 07:57; Status DC Sodium Chloride 90 meq/Potassium Chloride 15 meq/ Potassium Phosphate 10 mmol/ Magnesium Sulfate 10 meq/Calcium Gluconate 20 meq/ Multivitamins 10 ml/Chromium/ Copper/Manganese/ Seleni/Zn 0.5 ml/ Total Parenteral Nutrition/Amino Acids/Dextrose/ Fat Emulsion Intravenous 1,512 ml @ 63 mls/hr TPN CONT IV Last administered on 07/08/19at 21:01; Start 07/08/19 at 22:00; Stop 07/09/19 at 21:59; Status DC Potassium Chloride/Water 100 ml @ 100 mls/hr 1X ONCE IV Last administered on 07/08/19at 14:09; Start 07/08/19 at 14:00; Stop 07/08/19 at 14:59; Status DC Benzocaine (Hurricaine One) 1 spray 1X ONCE MM Last administered on 07/08/19at 16:38; Start 07/08/19 at 14:30; Stop 07/08/19 at 14:31; Status DC Lidocaine HCl (Glydo (Lidocaine) Jelly) 1 ramu 1X ONCE MM Last administered on 07/08/19at 16:38; Start 07/08/19 at 14:30; Stop 07/08/19 at 14:31; Status DC Linezolid/Dextrose 300 ml @ 300 mls/hr Q12HR IV Last administered on 07/14/19at 21:04; Start 07/08/19 at 20:00; Stop 07/15/19 at 07:50; Status DC Acetaminophen (Tylenol) 650 mg PRN Q6HRS PRN PO MILD PAIN / TEMP; Start 07/09/19 at 03:30; Stop 07/09/19 at 03:36; Status DC Acetaminophen (Tylenol) 650 mg PRN Q6HRS PRN PEG MILD PAIN / TEMP Last administered on 08/04/19at 19:56; Start 07/09/19 at 03:36; Stop 08/31/19 at 10:25; Status DC Sodium Chloride 1,000 ml @ 1,000 mls/hr Q1H PRN IV hypotension; Start 07/09/19 at 07:50; Stop 07/09/19 at 13:49; Status DC Albumin Human 200 ml @ 200 mls/hr 1X PRN PRN IV Hypotension; Start 07/09/19 at 08:00; Stop 07/09/19 at 13:59; Status DC Sodium Chloride (Normal Saline Flush) 10 ml 1X PRN PRN IV AP catheter pack; Start 07/09/19 at 08:00; Stop 07/10/19 at 07:59; Status DC Sodium Chloride (Normal Saline Flush) 10 ml 1X PRN PRN IV [employer] catheter pack; Start 07/09/19 at 08:00; Stop 07/10/19 at 07:59; Status DC Sodium Chloride 1,000 ml @ 400 mls/hr Q2H30M PRN IV PATENCY; Start 07/09/19 at 07:50; Stop 07/09/19 at 19:49; Status DC Info (PHARMACY MONITORING -- do not chart) 1 each PRN DAILY PRN MC SEE COMMENTS; Start 07/09/19 at 08:00; Status UNV Info (PHARMACY MONITORING -- do not chart) 1 each PRN DAILY PRN MC SEE COMMENTS; Start 07/09/19 at 08:00; Stop 07/11/19 at 08:25; Status DC Sodium Chloride 90 meq/Potassium Chloride 15 meq/ Potassium Phosphate 10 mmol/ Magnesium Sulfate 10 meq/Calcium Gluconate 20 meq/ Multivitamins 10 ml/Chromium/ Copper/Manganese/ Seleni/Zn 0.5 ml/ Total Parenteral Nutrition/Amino Acids/Dextrose/ Fat Emulsion Intravenous 1,512 ml @ 63 mls/hr TPN CONT IV Last administered on 07/09/19at 20:57; Start 07/09/19 at 22:00; Stop 07/10/19 at 21:59; Status DC Sodium Chloride 90 meq/Potassium Chloride 15 meq/ Potassium Phosphate 15 mmol/ Magnesium Sulfate 10 meq/Calcium Gluconate 20 meq/ Multivitamins 10 ml/Chromium/ Copper/Manganese/ Seleni/Zn 0.5 ml/ Total Parenteral Nutrition/Amino Acids/Dextrose/ Fat Emulsion Intravenous 1,512 ml @ 63 mls/hr TPN CONT IV ; Start 07/10/19 at 22:00; Stop 07/10/19 at 14:16; Status DC Sodium Chloride 90 meq/Potassium Chloride 15 meq/ Potassium Phosphate 15 mmol/ Magnesium Sulfate 10 meq/Calcium Gluconate 20 meq/ Multivitamins 10 ml/Chromium/ Copper/Manganese/ Seleni/Zn 0.5 ml/ Total Parenteral Nutrition/Amino Acids/Dextrose/ Fat Emulsion Intravenous 1,200 ml @ 50 mls/hr TPN CONT IV ; Start 07/10/19 at 22:00; Stop 07/10/19 at 14:17; Status DC Sodium Chloride 90 meq/Potassium Chloride 15 meq/ Potassium Phosphate 10 mmol/ Magnesium Sulfate 10 meq/Calcium Gluconate 20 meq/ Multivitamins 10 ml/Chromium/ Copper/Manganese/ Seleni/Zn 0.5 ml/ Total Parenteral Nutrition/Amino Acids/De xtrose/ Fat Emulsion Intravenous 1,200 ml @ 50 mls/hr TPN CONT IV Last administered on 07/10/19at 23:29; Start 07/10/19 at 22:00; Stop 07/11/19 at 21:59; Status DC Sodium Chloride 1,000 ml @ 1,000 mls/hr Q1H PRN IV hypotension; Start 07/11/19 at 07:28; Stop 07/11/19 at 13:27; Status DC Albumin Human 200 ml @ 200 mls/hr 1X ONCE IV Last administered on 07/11/19at 08:51; Start 07/11/19 at 07:30; Stop 07/11/19 at 08:29; Status DC Diphenhydramine HCl (Benadryl) 25 mg 1X PRN PRN IV ITCHING; Start 07/11/19 at 07:30; Stop 07/12/19 at 07:29; Status DC Diphenhydramine HCl (Benadryl) 25 mg 1X PRN PRN IV ITCHING; Start 07/11/19 at 07:30; Stop 07/12/19 at 07:29; Status DC Sodium Chloride 1,000 ml @ 400 mls/hr Q2H30M PRN IV PATENCY; Start 07/11/19 at 07:28; Stop 07/11/19 at 19:27; Status DC Info (PHARMACY MONITORING -- do not chart) 1 each PRN DAILY PRN MC SEE COMMENTS; Start 07/11/19 at 07:30; Stop 07/22/19 at 13:01; Status DC Metronidazole 100 ml @ 100 mls/hr Q6HRS IV Last administered on 07/27/19at 06:26; Start 07/11/19 at 08:30; Stop 07/27/19 at 09:58; Status DC Micafungin Sodium 100 mg/Dextrose 100 ml @ 100 mls/hr Q24H IV Last administered on 08/18/19at 08:18; Start 07/11/19 at 09:00; Stop 08/18/19 at 20:58; Status DC Propofol 0 ml @ As Directed STK-MED ONCE IV ; Start 07/11/19 at 07:53; Stop 07/11/19 at 07:53; Status DC Etomidate (Amidate) 20 mg STK-MED ONCE IV ; Start 07/11/19 at 07:53; Stop 07/11/19 at 07:54; Status DC Midazolam HCl (Versed) 5 mg STK-MED ONCE .ROUTE ; Start 07/11/19 at 07:57; Stop 07/11/19 at 07:57; Status DC Fentanyl Citrate 30 ml @ 0 mls/hr CONT PRN IV SEE PROTOCOL Last administered on 08/05/19at 06:12; Start 07/11/19 at 08:15; Stop 08/05/19 at 09:19; Status DC Artificial Tears (Artificial Tears) 1 drop PRN Q1HR PRN OU DRY EYE, 1st choice; Start 07/11/19 at 08:15; Stop 08/17/19 at 05:31; Status DC Midazolam HCl 50 mg/Sodium Chloride 50 ml @ 0 mls/hr CONT PRN IV SEE PROTOCOL Last administered on 07/14/19at 22:39; Start 07/11/19 at 08:15; Stop 07/16/19 at 15:59; Status DC Etomidate (Amidate) 8 mg 1X ONCE IV Last administered on 07/11/19at 08:33; Start 07/11/19 at 08:30; Stop 07/11/19 at 08:31; Status DC Succinylcholine Chloride (Anectine) 120 mg 1X ONCE IV Last administered on 07/11/19at 08:34; Start 07/11/19 at 08:30; Stop 07/11/19 at 08:31; Status DC Midazolam HCl (Versed) 5 mg 1X ONCE IV ; Start 07/11/19 at 08:30; Stop 07/11/19 at 08:31; Status DC Potassium Chloride 15 meq/ Bicarbonate Dialysis Soln w/ out KCl 5,007.5 ml @ 1,000 mls/ hr Q5H1M IV Last administered on 07/12/19at 11:11; Start 07/11/19 at 12:00; Stop 07/12/19 at 11:15; Status DC Potassium Chloride 15 meq/ Bicarbonate Dialysis Soln w/ out KCl 5,007.5 ml @ 1,000 mls/ hr Q5H1M IV Last administered on 07/12/19at 11:12; Start 07/11/19 at 12:00; Stop 07/12/19 at 11:17; Status DC Potassium Chloride 15 meq/ Bicarbonate Dialysis Soln w/ out KCl 5,007.5 ml @ 1,000 mls/ hr Q5H1M IV Last administered on 07/12/19at 11:11; Start 07/11/19 at 12:00; Stop 07/12/19 at 11:19; Status DC Sodium Chloride 90 meq/Potassium Chloride 15 meq/ Potassium Phosphate 10 mmol/ Magnesium Sulfate 10 meq/Calcium Gluconate 20 meq/ Multivitamins 10 ml/Chromium/ Copper/Manganese/ Seleni/Zn 0.5 ml/ Total Parenteral Nutrition/Amino Acids/Dextrose/ Fat Emulsion Intravenous 1,400 ml @ 58.333 mls/ hr TPN CONT IV Last administered on 07/11/19at 21:42; Start 07/11/19 at 22:00; Stop 07/12/19 at 21:59; Status DC Heparin Sodium (Porcine) (Heparin Sodium) 5,000 unit Q8HRS SQ Last administered on 07/16/19at 05:55; Start 07/11/19 at 15:00; Stop 07/16/19 at 13:28; Status DC Meropenem 500 mg/ Sodium Chloride 50 ml @ 100 mls/hr Q6HRS IV Last administered on 07/13/19at 06:00; Start 07/12/19 at 09:00; Stop 07/13/19 at 07:29; Status DC Potassium Phosphate 20 mmol/ Sodium Chloride 106.6667 ml @ 51.667 m... 1X ONCE IV Last administered on 07/12/19at 11:22; Start 07/12/19 at 10:15; Stop 07/12/19 at 12:18; Status DC Acetaminophen (Tylenol Supp) [address] MILD PAIN / TEMP > 100.3'F Last administered on 09/25/19at 14:41; Start 07/12/19 at 10:30 Potassium Chloride/Water 100 ml @ 100 mls/hr Q1H IV Last administered on 07/12/19at 12:12; Start 07/12/19 at 11:00; Stop 07/12/19 at 12:59; Status DC Potassium Chloride 20 meq/ Bicarbonate Dialysis Soln w/ out KCl 5,010 ml @ 1,000 mls/hr Q5H1M IV Last administered on 07/13/19at 08:48; Start 07/12/19 at 12:00; Stop 07/13/19 at 13:03; Status DC Potassium Chloride 20 meq/ Bicarbonate Dialysis Soln w/ out KCl 5,010 ml @ 1,000 mls/hr Q5H1M IV Last administered on 07/17/19at 14:52; Start 07/12/19 at 11:30; Stop 07/17/19 at 19:59; Status DC Potassium Chloride 20 meq/ Bicarbonate Dialysis Soln w/ out KCl 5,010 ml @ 1,000 mls/hr Q5H1M IV Last administered on 07/17/19at 14:53; Start 07/12/19 at 11:30; Stop 07/17/19 at 19:59; Status DC Sodium Chloride 90 meq/Potassium Chloride 15 meq/ Potassium Phosphate 15 mmol/ Magnesium Sulfate 10 meq/Calcium Gluconate 15 meq/ Multivitamins 10 ml/Chromium/ Copper/Manganese/ Seleni/Zn 0.5 ml/ Total Parenteral Nutrition/Amino Acids/Dextrose/ Fat Emulsion Intravenous 1,400 ml @ 58.333 mls/ hr TPN CONT IV Last administered on 07/12/19at 22:17; Start 07/12/19 at 22:00; Stop 07/13/19 at 21:59; Status DC Cefepime HCl (Maxipime) 2 gm Q12HR IVP Last administered on 07/26/19at 20:56; Start 07/13/19 at 09:00; Stop 07/27/19 at 09:58; Status DC Daptomycin 500 mg/ Sodium Chloride 50 ml @ 100 mls/hr Q48H IV Last administered on 07/29/19at 09:57; Start 07/13/19 at 08:30; Stop 07/29/19 at 10:07; Status DC Lidocaine HCl (Buffered Lidocaine 1%) 3 ml 1X ONCE INJ Last administered on 07/13/19at 10:27; Start 07/13/19 at 10:30; Stop 07/13/19 at 10:31; Status DC Potassium Phosphate 20 mmol/ Sodium Chloride 106.6667 ml @ 51.667 m... 1X ONCE IV Last administered on 07/13/19at 12:51; Start 07/13/19 at 13:00; Stop 07/13/19 at 15:03; Status DC Sodium Chloride 90 meq/Potassium Chloride 15 meq/ Potassium Phosphate 18 mmol/ Magnesium Sulfate 8 meq/Calcium Gluconate 15 meq/ Multivitamins 10 ml/Chromium/ Copper/Manganese/ Seleni/Zn 0.5 ml/ Total Parenteral Nutrition/Amino Acids/Dextrose/ Fat Emulsion Intravenous 1,400 ml @ 58.333 mls/ hr TPN CONT IV Last administered on 07/13/19at 22:16; Start 07/13/19 at 22:00; Stop 07/14/19 at 21:59; Status DC Potassium Chloride 20 meq/ Bicarbonate Dialysis Soln w/ out KCl 5,010 ml @ 1,000 mls/hr Q5H1M IV Last administered on 07/17/19at 14:54; Start 07/13/19 at 16:00; Stop 07/17/19 at 19:59; Status DC Multi-Ingred Cream/Lotion/Oil/ Oint (Artificial Tears Eye Ointment) 1 ramu PRN Q1HR PRN OU DRY EYE, 2nd choice Last administered on 08/01/19at 08:19; Start 07/13/19 at 17:30; Stop 09/21/19 at 14:39; Status DC Sodium Chloride 90 meq/Potassium Chloride 15 meq/ Potassium Phosphate 18 mmol/ Magnesium Sulfate 8 meq/Calcium Gluconate 15 meq/ Multivitamins 10 ml/Chromium/ Copper/Manganese/ Seleni/Zn 0.5 ml/ Total Parenteral Nutrition/Amino Acids/Dextrose/ Fat Emulsion Intravenous 1,400 ml @ 58.333 mls/ hr TPN CONT IV Last administered on 07/14/19at 22:00; Start 07/14/19 at 22:00; Stop 07/15/19 at 21:59; Status DC Albumin Human 500 ml @ 125 mls/hr 1X ONCE IV ; Start 07/14/19 at 14:15; Stop 07/14/19 at 18:14; Status DC Sodium Chloride 90 meq/Potassium Chloride 15 meq/ Potassium Phosphate 18 mmol/ Magnesium Sulfate 8 meq/Calcium Gluconate 15 meq/ Multivitamins 10 ml/Chromium/ Copper/Manganese/ Seleni/Zn 0.5 ml/ Insulin Human Regular 10 unit/ Total Parenteral Nutrition/Amino Acids/Dextrose/ Fat Emulsion Intravenous 1,400 ml @ 58.333 mls/ hr TPN CONT IV Last administered on 07/15/19at 21:43; Start 07/15/19 at 22:00; Stop 07/16/19 at 21:59; Status DC Lidocaine HCl (Buffered Lidocaine 1%) 3 ml STK-MED ONCE .ROUTE ; Start 07/13/19 at 10:00; Stop 07/15/19 at 13:57; Status DC Midazolam HCl 100 mg/Sodium Chloride 100 ml @ 7 mls/hr CONT PRN IV SEE PROTOCOL Last administered on 07/27/19at 15:35; Start 07/16/19 at 16:00; Stop 09/21/19 at 14:38; Status DC Sodium Chloride 90 meq/Potassium Chloride 15 meq/ Potassium Phosphate 18 mmol/ Magnesium Sulfate 8 meq/Calcium Gluconate 15 meq/ Multivitamins 10 ml/Chromium/ Copper/Manganese/ Seleni/Zn 0.5 ml/ Insulin Human Regular 15 unit/ Total Parenteral Nutrition/Amino Acids/Dextrose/ Fat Emulsion Intravenous 1,400 ml @ 58.333 mls/ hr TPN CONT IV Last administered on 07/16/19at 20:34; Start 07/16/19 at 22:00; Stop 07/17/19 at 21:59; Status DC Info (Icu Electrolyte Protocol) 1 ea CONT PRN PRN MC PER PROTOCOL; Start 07/17/19 at 13:15 Sodium Chloride 90 meq/Potassium Chloride 15 meq/ Potassium Phosphate 18 mmol/ Magnesium Sulfate 8 meq/Calcium Gluconate 15 meq/ Multivitamins 10 ml/Chromium/ Copper/Manganese/ Seleni/Zn 0.5 ml/ Insulin Human Regular 15 unit/ Total Parenteral Nutrition/Amino Acids/Dextrose/ Fat Emulsion Intravenous 1,400 ml @ 58.333 mls/ hr TPN CONT IV Last administered on 07/17/19at 22:05; Start 07/17/19 at 22:00; Stop 07/18/19 at 21:59; Status DC Potassium Chloride 15 meq/ Bicarbonate Dialysis Soln w/ out KCl 5,007.5 ml @ 1,000 mls/ hr Q5H1M IV Last administered on 07/20/19at 18:14; Start 07/17/19 at 20:00; Stop 07/21/19 at 13:08; Status DC Potassium Chloride 15 meq/ Bicarbonate Dialysis Soln w/ out KCl 5,007.5 ml @ 1,000 mls/ hr Q5H1M IV Last administered on 07/20/19at 18:14; Start 07/17/19 at 20:00; Stop 07/21/19 at 13:08; Status DC Potassium Chloride 15 meq/ Bicarbonate Dialysis Soln w/ out KCl 5,007.5 ml @ 1,000 mls/ hr Q5H1M IV Last administered on 07/20/19at 18:14; Start 07/17/19 at 20:00; Stop 07/21/19 at 13:08; Status DC Iohexol (Omnipaque 240 Mg/ml) 30 ml 1X ONCE PO Last administered on 07/18/19at 11:30; Start 07/18/19 at 11:30; Stop 07/18/19 at 11:33; Status DC Info (CONTRAST GIVEN -- Rx MONITORING) 1 each PRN DAILY PRN MC SEE COMMENTS; Start 07/18/19 at 11:45; Stop 07/20/19 at 11:44; Status DC Sodium Chloride 90 meq/Potassium Chloride 15 meq/ Potassium Phosphate 18 mmol/ Magnesium Sulfate 8 meq/Calcium Gluconate 15 meq/ Multivitamins 10 ml/Chromium/ Copper/Manganese/ Seleni/Zn 0.5 ml/ Insulin Human Regular 15 unit/ Total Parenteral Nutrition/Amino Acids/Dextrose/ Fat Emulsion Intravenous 1,400 ml @ 58.333 mls/ hr TPN CONT IV Last administered on 07/18/19at 21:47; Start 07/18/19 at 22:00; Stop 07/19/19 at 21:59; Status DC Sodium Chloride 90 meq/Potassium Chloride 15 meq/ Potassium Phosphate 18 mmol/ Magnesium Sulfate 8 meq/Calcium Gluconate 15 meq/ Multivitamins 10 ml/Chromium/ Copper/Manganese/ Seleni/Zn 0.5 ml/ Insulin Human Regular 20 unit/ Total Parenteral Nutrition/Amino Acids/Dextrose/ Fat Emulsion Intravenous 1,400 ml @ 58.333 mls/ hr TPN CONT IV Last administered on 07/19/19at 21:36; Start at 22:00; Stop 07/20/19 at 21:59; Status DC Alteplase, Recombinant (Cathflo For Central Catheter Clearance) 1 mg 1X ONCE INT CAT Last administered on 07/19/19at 20:03; Start 07/19/19 at 19:30; Stop 07/19/19 at 19:46; Status DC Alteplase, Recombinant (Cathflo For Central Catheter Clearance) 1 mg 1X ONCE INT CAT Last administered on 07/19/19at 22:05; Start 07/19/19 at 22:00; Stop 07/19/19 at 22:01; Status DC Sodium Chloride 90 meq/Potassium Chloride 15 meq/ Potassium Phosphate 18 mmol/ Magnesium Sulfate 8 meq/Calcium Gluconate 15 meq/ Multivitamins 10 ml/Chromium/ Copper/Manganese/ Seleni/Zn 0.5 ml/ Insulin Human Regular 20 unit/ Total Parenteral Nutrition/Amino Acids/Dextrose/ Fat Emulsion Intravenous 1,400 ml @ 58.333 mls/ hr TPN CONT IV Last administered on 07/20/19at 21:30; Start 07/20/19 at 22:00; Stop 07/21/19 at 21:59; Status DC Dexmedetomidine HCl 400 mcg/ Sodium Chloride 100 ml @ 0 mls/hr CONT PRN IV ANXIETY / AGITATION Last administered on 09/17/19at 12:57; Start 07/21/19 at 08:15; Stop 09/17/19 at 18:31; Status DC Sodium Chloride 500 ml @ 500 mls/hr 1X PRN PRN IV ELEVATED BP, SEE COMMENTS; Start 07/21/19 at 08:15 Atropine Sulfate (ATROPINE 0.5mg SYRINGE) 0.5 mg PRN Q5MIN PRN IV SEE COMMENTS; Start 07/21/19 at 08:15 Furosemide (Lasix) 20 mg 1X ONCE IVP Last administered on 07/21/19at 08:19; Start 07/21/19 at 08:15; Stop 07/21/19 at 08:16; Status DC Lidocaine HCl (Buffered Lidocaine 1%) 3 ml STK-MED ONCE .ROUTE ; Start 07/21/19 at 08:39; Stop 07/21/19 at 08:39; Status DC Lidocaine HCl (Buffered Lidocaine 1%) 6 ml 1X ONCE INJ Last administered on 07/21/19at 09:05; Start 07/21/19 at 09:00; Stop 07/21/19 at 09:06; Status DC Sodium Chloride 90 meq/Potassium Chloride 15 meq/ Potassium Phosphate 18 mmol/ Magnesium Sulfate 8 meq/Calcium Gluconate 15 meq/ Multivitamins 10 ml/Chromium/ Copper/Manganese/ Seleni/Zn 0.5 ml/ Insulin Human Regular 20 unit/ Total Parenteral Nutrition/Amino Acids/Dextrose/ Fat Emulsion Intravenous 1,400 ml @ 58.333 mls/ hr TPN CONT IV Last administered on 07/21/19at 22:45; Start 07/21/19 at 22:00; Stop 07/22/19 at 21:59; Status DC Sodium Chloride 1,000 ml @ 1,000 mls/hr Q1H PRN IV hypotension; Start 07/22/19 at 07:30; Stop 07/22/19 at 13:29; Status DC Albumin Human 200 ml @ 200 mls/hr 1X PRN PRN IV Hypotension Last administered on 07/22/19at 09:36; Start 07/22/19 at 07:30; Stop 07/22/19 at 13:29; Status DC Sodium Chloride (Normal Saline Flush) 10 ml 1X PRN PRN IV AP catheter pack; Start 07/22/19 at 07:30; Stop 07/22/19 at 21:29; Status DC Sodium Chloride (Normal Saline Flush) 10 ml 1X PRN PRN IV [employer] catheter pack; Start 07/22/19 at 07:30; Stop 07/23/19 at 07:29; Status DC Sodium Chloride 1,000 ml @ 400 mls/hr Q2H30M PRN IV PATENCY; Start 07/22/19 at 07:30; Stop 07/22/19 at 19:29; Status DC Info (PHARMACY MONITORING -- do not chart) 1 each PRN DAILY PRN MC SEE COMMENTS; Start 07/22/19 at 07:30; Stop 07/22/19 at 13:02; Status DC Info (PHARMACY MONITORING -- do not chart) 1 each PRN DAILY PRN MC SEE COMMENTS; Start 07/22/19 at 07:30; Stop 07/24/19 at 12:45; Status DC Sodium Chloride 90 meq/Potassium Chloride 15 meq/ Potassium Phosphate 10 mmol/ Magnesium Sulfate 8 meq/Calcium Gluconate 15 meq/ Multivitamins 10 ml/Chromium/ Copper/Manganese/ Seleni/Zn 0.5 ml/ Insulin Human Regular 25 unit/ Total Parenteral Nutrition/Amino Acids/Dextrose/ Fat Emulsion Intravenous 1,400 ml @ 58.333 mls/ hr TPN CONT IV Last administered on 07/22/19at 22:19; Start 07/22/19 at 22:00; Stop 07/23/19 at 21:59; Status DC Heparin Sodium (Porcine) (Heparin Sodium) 5,000 unit Q12HR SQ Last administered on 08/14/19at 08:59; Start 07/22/19 at 21:00; Stop 08/14/19 at 10:05; Status DC Ondansetron HCl (Zofran) 4 mg PRN Q6HRS PRN IV NAUSEA/VOMITING; Start 07/25/19 at 07:00; Stop 07/26/19 at 06:59; Status DC Fentanyl Citrate (Fentanyl 2ml Vial) 25 mcg PRN Q5MIN PRN IV MILD PAIN 1-3; Start 07/25/19 at 07:00; Stop 07/26/19 at 06:59; Status DC Fentanyl Citrate (Fentanyl 2ml Vial) 50 mcg PRN Q5MIN PRN IV MODERATE TO SEVERE PAIN; Start 07/25/19 at 07:00; Stop 07/26/19 at 06:59; Status DC Ringer's Solution 1,000 ml @ 30 mls/hr Q24H IV ; Start 07/25/19 at 07:00; Stop 07/25/19 at 18:59; Status DC Lidocaine HCl (Xylocaine-Mpf 1% 2ml Vial) 2 ml PRN 1X PRN ID PRIOR TO IV START; Start 07/25/19 at 07:00; Stop 07/26/19 at 06:59; Status DC Prochlorperazine Edisylate (Compazine) 5 mg PACU PRN PRN IV NAUSEA, MRX1; Start 07/25/19 at 07:00; Stop 07/26/19 at 06:59; Status DC Sodium Chloride 1,000 ml @ 1,000 mls/hr Q1H PRN IV hypotension; Start 07/23/19 at 09:10; Stop 07/23/19 at 15:09; Status DC Albumin Human 200 ml @ 200 mls/hr 1X PRN PRN IV Hypotension Last administered on 07/23/19at 10:10; Start 07/23/19 at 09:15; Stop 07/23/19 at 15:14; Status DC Sodium Chloride 1,000 ml @ 400 mls/hr Q2H30M PRN IV PATENCY; Start 07/23/19 at 09:10; Stop 07/23/19 at 21:09; Status DC Info (PHARMACY MONITORING -- do not chart) 1 each PRN DAILY PRN MC SEE COMMENTS; Start 07/23/19 at 09:15; Stop 07/24/19 at 12:45; Status DC Info (PHARMACY MONITORING -- do not chart) 1 each PRN DAILY PRN MC SEE COMMENTS; Start 07/23/19 at 09:15; Stop 07/24/19 at 12:45; Status DC Sodium Chloride 90 meq/Potassium Chloride 15 meq/ Potassium Phosphate 10 mmol/ Magnesium Sulfate 8 meq/Calcium Gluconate 15 meq/ Multivitamins 10 ml/Chromium/ Copper/Manganese/ Seleni/Zn 0.5 ml/ Insulin Human Regular 25 unit/ Total Parenteral Nutrition/Amino Acids/Dextrose/ Fat Emulsion Intravenous 1,400 ml @ 58.333 mls/ hr TPN CONT IV Last administered on 07/23/19at 22:10; Start 07/23/19 at 22:00; Stop 07/24/19 at 21:59; Status DC Magnesium Sulfate 50 ml @ 25 mls/hr PRN DAILY PRN IV for Mag < 1.7 on am labs Last administered on 08/08/19at 17:27; Start 07/24/19 at 09:15 Sodium Chloride 90 meq/Potassium Chloride 15 meq/ Potassium Phosphate 10 mmol/ Magnesium Sulfate 8 meq/Calcium Gluconate 15 meq/ Multivitamins 10 ml/Chromium/ Copper/Manganese/ Seleni/Zn 0.5 ml/ Insulin Human Regular 25 unit/ Total Parenteral Nutrition/Amino Acids/Dextrose/ Fat Emulsion Intravenous 1,400 ml @ 58.333 mls/ hr TPN CONT IV Last administered on 07/24/19at 21:20; Start 07/24/19 at 22:00; Stop 07/25/19 at 21:59; Status DC Sodium Chloride 1,000 ml @ 1,000 mls/hr Q1H PRN IV hypotension; Start 07/24/19 at 12:23; Stop 07/24/19 at 18:22; Status DC Albumin Human 200 ml @ 200 mls/hr 1X ONCE IV Last administered on 07/24/19at 13:34; Start 07/24/19 at 12:30; Stop 07/24/19 at 13:29; Status DC Diphenhydramine HCl (Benadryl) 25 mg 1X PRN PRN IV ITCHING; Start 07/24/19 at 12:30; Stop 07/25/19 at 12:29; Status DC Diphenhydramine HCl (Benadryl) 25 mg 1X PRN PRN IV ITCHING; Start 07/24/19 at 12:30; Stop 07/25/19 at 12:29; Status DC Info (PHARMACY MONITORING -- do not chart) 1 each PRN DAILY PRN MC SEE COMMENTS; Start 07/24/19 at 12:30; Status Cancel Bupivacaine HCl/ Epinephrine Bitart (Sensorcain-Epi 0.5%-1:364672 Mpf) 30 ml STK-MED ONCE .ROUTE Last administered on 07/25/19at 11:44; Start 07/25/19 at 11:00; Stop 07/25/19 at 11:01; Status DC Cellulose (Surgicel Fibrillar 1x2) 1 each STK-MED ONCE .ROUTE ; Start 07/25/19 at 11:00; Stop 07/25/19 at 11:01; Status DC Sodium Chloride 90 meq/Potassium Chloride 15 meq/ Potassium Phosphate 10 mmol/ Magnesium Sulfate 12 meq/Calcium Gluconate 15 meq/ Multivitamins 10 ml/Chromium/ Copper/Manganese/ Seleni/Zn 0.5 ml/ Insulin Human Regular 25 unit/ Total P arenteral Nutrition/Amino Acids/Dextrose/ Fat Emulsion Intravenous 1,400 ml @ 58.333 mls/ hr TPN CONT IV Last administered on 07/25/19at 22:24; Start 07/25/19 at 22:00; Stop 07/26/19 at 21:59; Status DC Propofol 20 ml @ As Directed STK-MED ONCE IV ; Start 07/25/19 at 11:07; Stop 07/25/19 at 11:07; Status DC Cellulose (Surgicel Hemostat 4x8) 1 each STK-MED ONCE .ROUTE Last administered on 07/25/19at 11:44; Start 07/25/19 at 11:55; Stop 07/25/19 at 11:56; Status DC Sevoflurane (Ultane) 60 ml STK-MED ONCE IH ; Start 07/25/19 at 12:46; Stop 07/25/19 at 12:46; Status DC Sodium Chloride 1,000 ml @ 1,000 mls/hr Q1H PRN IV hypotension; Start 07/25/19 at 13:51; Stop 07/25/19 at 19:50; Status DC Albumin Human 200 ml @ 200 mls/hr 1X PRN PRN IV Hypotension Last administered on 07/25/19at 14:51; Start 07/25/19 at 14:00; Stop 07/25/19 at 19:59; Status DC Diphenhydramine HCl (Benadryl) 25 mg 1X PRN PRN IV ITCHING; Start 07/25/19 at 14:00; Stop 07/26/19 at 13:59; Status DC Diphenhydramine HCl (Benadryl) 25 mg 1X PRN PRN IV ITCHING; Start 07/25/19 at 14:00; Stop 07/26/19 at 13:59; Status DC Sodium Chloride 1,000 ml @ 400 mls/hr Q2H30M PRN IV PATENCY; Start 07/25/19 at 13:51; Stop 07/26/19 at 01:50; Status DC Info (PHARMACY MONITORING -- do not chart) 1 each PRN DAILY PRN MC SEE CO MMENTS; Start 07/25/19 at 14:00; Stop 07/28/19 at 08:16; Status DC Heparin Sodium (Porcine) (Hep Lock Adult) 500 unit STK-MED ONCE IVP ; Start 07/26/19 at 09:29; Stop 07/26/19 at 09:30; Status DC Sodium Chloride 1,000 ml @ 1,000 mls/hr Q1H PRN IV hypotension; Start 07/26/19 at 10:43; Stop 07/26/19 at 16:42; Status DC Sodium Chloride 1,000 ml @ 400 mls/hr Q2H30M PRN IV PATENCY; Start 07/26/19 at 10:43; Stop 07/26/19 at 22:42; Status DC Info (PHARMACY MONITORING -- do not chart) 1 each PRN DAILY PRN MC SEE COM MENTS; Start 07/26/19 at 10:45; Status UNV Info (PHARMACY MONITORING -- do not chart) 1 each PRN DAILY PRN MC SEE COMMENTS; Start 07/26/19 at 10:45; Status UNV Sodium Chloride 90 meq/Potassium Chloride 15 meq/ Magnesium Sulfate 12 meq/Calcium Gluconate 15 meq/ Multivitamins 10 ml/Chromium/ Copper/Manganese/ Seleni/Zn 0.5 ml/ Insulin Human Regular 25 unit/ Total Parenteral Nutritio n/Amino Acids/Dextrose/ Fat Emulsion Intravenous 1,400 ml @ 58.333 mls/ hr TPN CONT IV Last administered on 07/26/19at 22:13; Start 07/26/19 at 22:00; Stop 07/27/19 at 21:59; Status DC Sodium Chloride 1,000 ml @ 1,000 mls/hr Q1H PRN IV hypotension; Start 07/27/19 at 07:50; Stop 07/27/19 at 13:49; Status DC Albumin Human 200 ml @ 200 mls/hr 1X ONCE IV ; Start 07/27/19 at 08:00; Stop 07/27/19 at 08:53; Status DC Diphenhydramine HCl (Benadryl) 25 mg 1X PRN PRN IV ITCHING; Start 07/27/19 at 08:00; Stop 07/28/19 at 07:59; Status DC Diphenhydramine HCl (Benadryl) 25 mg 1X PRN PRN IV ITCHING; Start 07/27/19 at 08:00; Stop 07/28/19 at 07:59; Status DC Info (PHARMACY MONITORING -- do not chart) 1 each PRN DAILY PRN MC SEE COMMENTS; Start 07/27/19 at 08:00; Stop 07/28/19 at 08:16; Status DC Albumin Human 50 ml @ 50 mls/hr 1X ONCE IV ; Start 07/27/19 at 08:53; Stop 07/27/19 at 08:56; Status DC Albumin Human 200 ml @ 50 mls/hr PRN 1X PRN IV HYPOTENSION Last administered on 08/02/19at 11:54; Start 07/27/19 at 09:00; Stop 09/08/19 at 11:14; Status DC Meropenem 500 mg/ Sodium Chloride 50 ml @ 100 mls/hr Q12H IV Last administered on 08/16/19at 10:45; Start 07/27/19 at 10:00; Stop 08/16/19 at 12:37; Status DC Sodium Chloride 90 meq/Magnesium Sulfate 12 meq/ Calcium Gluconate 15 meq/ Multivitamins 10 ml/Chromium/ Copper/Manganese/ Seleni/Zn 0.5 ml/ Insulin Human Regular 25 unit/ Total Parenteral Nutrition/Amino Acids/Dextrose/ Fat Emulsion Intravenous 1,400 ml @ 58.333 mls/ hr TPN CONT IV Last administered on 07/27/19at 21:41; Start 07/27/19 at 22:00; Stop 07/28/19 at 21:59; Status DC Sodium Chloride 1,000 ml @ 1,000 mls/hr Q1H PRN IV hypotension; Start 07/28/19 at 07:58; Stop 07/28/19 at 13:57; Status DC Albumin Human 200 ml @ 200 mls/hr 1X PRN PRN IV Hypotension Last administered on 07/28/19at 09:30; Start 07/28/19 at 08:00; Stop 07/28/19 at 13:59; Status DC Sodium Chloride 1,000 ml @ 400 mls/hr Q2H30M PRN IV PATENCY; Start 07/28/19 at 07:58; Stop 07/28/19 at 19:57; Status DC Info (PHARMACY MONITORING -- do not chart) 1 each PRN DAILY PRN MC SEE COMMENTS; Start 07/28/19 at 08:00; Status Cancel Info (PHARMACY MONITORING -- do not chart) 1 each PRN DAILY PRN MC SEE COMMENTS; Start 07/28/19 at 08:15; Status UNV Sodium Chloride 90 meq/Potassium Phosphate 5 mmol/ Magnesium Sulfate 12 meq/Calcium Gluconate 15 meq/ Multivitamins 10 ml/Chromium/ Copper/Manganese/ Seleni/Zn 0.5 ml/ Insulin Human Regular 30 unit/ Total Parenteral Nutrition/Amino Acids/Dextrose/ Fat Emulsion Intravenous 1,400 ml @ 58.333 mls/ hr TPN CONT IV Last administered on 07/28/19at 22:08; Start 07/28/19 at 22:00; Stop 07/29/19 at 21:59; Status DC Linezolid/Dextrose 300 ml @ 300 mls/hr Q12HR IV Last administered on 08/08/19at 20:40; Start 07/29/19 at 11:00; Stop 08/09/19 at 08:10; Status DC Sodium Chloride 90 meq/Potassium Phosphate 15 mmol/ Magnesium Sulfate 12 meq/Calcium Gluconate 15 meq/ Multivitamins 10 ml/Chromium/ Copper/Manganese/ Seleni/Zn 0.5 ml/ Insulin Human Regular 30 unit/ Total Parenteral Nutrition/Amino Acids/Dextrose/ Fat Emulsion Intravenous 1,400 ml @ 58.333 mls/ hr TPN CONT IV Last administered on 07/29/19at 21:49; Start 07/29/19 at 22:00; Stop 07/30/19 at 21:59; Status DC Sodium Chloride 90 meq/Potassium Phosphate 15 mmol/ Magnesium Sulfate 12 meq/Calcium Gluconate 15 meq/ Multivitamins 10 ml/Chromium/ Copper/Manganese/ Seleni/Zn 0.5 ml/ Insulin Human Regular 40 unit/ Total Parenteral Nutrition/Amino Acids/Dextrose/ Fat Emulsion Intravenous 1,400 ml @ 58.333 mls/ hr TPN CONT IV Last administered on 07/30/19at 21:21; Start 07/30/19 at 22:00; Stop 07/31/19 at 21:59; Status DC Sodium Chloride 1,000 ml @ 1,000 mls/hr Q1H PRN IV hypotension; Start 07/30/19 at 13:26; Stop 07/30/19 at 19:25; Status DC Albumin Human 200 ml @ 200 mls/hr 1X PRN PRN IV Hypotension Last administered on 07/30/19at 15:00; Start 07/30/19 at 13:30; Stop 07/30/19 at 19:29; Status DC Sodium Chloride (Normal Saline Flush) 10 ml 1X PRN PRN IV AP catheter pack; Start 07/30/19 at 13:30; Stop 07/31/19 at 13:29; Status DC Sodium Chloride (Normal Saline Flush) 10 ml 1X PRN PRN IV [employer] catheter pack; Start 07/30/19 at 13:30; Stop 07/31/19 at 13:29; Status DC Sodium Chloride 1,000 ml @ 400 mls/hr Q2H30M PRN IV PATENCY; Start 07/30/19 at 13:26; Stop 07/31/19 at 01:25; Status DC Info (PHARMACY MONITORING -- do not chart) 1 each PRN DAILY PRN MC SEE COMMENTS; Start 07/30/19 at 13:30; Stop 07/30/19 at 13:33; Status DC Info (PHARMACY MONITORING -- do not chart) 1 each PRN DAILY PRN MC SEE COMMENTS; Start 07/30/19 at 13:30; Stop 07/30/19 at 13:34; Status DC Sodium Chloride 90 meq/Potassium Phosphate 19 mmol/ Magnesium Sulfate 12 meq/Calcium Gluconate 15 meq/ Multivitamins 10 ml/Chromium/ Copper/Manganese/ Seleni/Zn 0.5 ml/ Insulin Human Regular 40 unit/ Total Parenteral Nutrition/Amino Acids/Dextrose/ Fat Emulsion Intravenous 1,400 ml @ 58.333 mls/ hr TPN CONT IV Last administered on 07/31/19at 21:54; Start 07/31/19 at 22:00; Stop 08/01/19 at 21:59; Status DC Sodium Chloride 1,000 ml @ 1,000 mls/hr Q1H PRN IV hypotension; Start 08/01/19 at 09:35; Stop 08/01/19 at 15:34; Status DC Albumin Human 200 ml @ 200 mls/hr 1X PRN PRN IV Hypotension; Start 08/01/19 at 09:45; Stop 08/01/19 at 15:44; Status DC Diphenhydramine HCl (Benadryl) 25 mg 1X PRN PRN IV ITCHING; Start 08/01/19 at 09:45; Stop 08/02/19 at 09:44; Status DC Diphenhydramine HCl (Benadryl) 25 mg 1X PRN PRN IV ITCHING; Start 08/01/19 at 09:45; Stop 08/02/19 at 09:44; Status DC Sodium Chloride 1,000 ml @ 400 mls/hr Q2H30M PRN IV PATENCY; Start 08/01/19 at 09:35; Stop 08/01/19 at 21:34; Status DC Info (PHARMACY MONITORING -- do not chart) 1 each PRN DAILY PRN MC SEE COMMENTS; Start 08/01/19 at 09:45; Status Cancel Sodium Chloride 100 meq/Potassium Phosphate 19 mmol/ Magnesium Sulfate 12 meq/Calcium Gluconate 15 meq/ Multivitamins 10 ml/Chromium/ Copper/Manganese/ Seleni/Zn 0.5 ml/ Insulin Human Regular 40 unit/ Potassium Chloride 20 meq/ Total Parenteral Nutrition/Amino Acids/Dextrose/ Fat Emulsion Intravenous 1,400 ml @ 58.333 mls/ hr TPN CONT IV Last administered on 08/01/19at 22:02; Start 08/01/19 at 22:00; Stop 08/02/19 at 21:59; Status DC Furosemide (Lasix) 40 mg 1X ONCE IVP Last administered on 08/01/19at 14:39; Start 08/01/19 at 14:30; Stop 08/01/19 at 14:31; Status DC Metronidazole 100 ml @ 100 mls/hr Q8HRS IV Last administered on 08/09/19at 06:04; Start 08/02/19 at 10:00; Stop 08/09/19 at 08:10; Status DC Sodium Chloride 1,000 ml @ 1,000 mls/hr Q1H PRN IV hypotension; Start 08/02/19 at 08:00; Stop 08/02/19 at 13:59; Status DC Albumin Human 200 ml @ 200 mls/hr 1X PRN PRN IV Hypotension; Start 08/02/19 at 08:00; Stop 08/02/19 at 13:59; Status DC Sodium Chloride 1,000 ml @ 400 mls/hr Q2H30M PRN IV PATENCY; Start 08/02/19 at 08:00; Stop 08/02/19 at 19:59; Status DC Info (PHARMACY MONITORING -- do not chart) 1 each PRN DAILY PRN MC SEE COMMENTS; Start 08/02/19 at 11:30; Status UNV Info (PHARMACY MONITORING -- do not chart) 1 each PRN DAILY PRN MC SEE COMMENTS; Start 08/02/19 at 11:30; Stop 08/04/19 at 12:13; Status DC Sodium Chloride 100 meq/Potassium Phosphate 19 mmol/ Magnesium Sulfate 12 meq/Calcium Gluconate 15 meq/ Multivitamins 10 ml/Chromium/ Copper/Manganese/ Seleni/Zn 0.5 ml/ Insulin Human Regular 40 unit/ Potassium Chloride 20 meq/ Total Parenteral Nutrition/Amino Acids/Dextrose/ Fat Emulsion Intravenous 1,400 ml @ 58.333 mls/ hr TPN CONT IV Last administered on 08/02/19at 21:52; Start 08/02/19 at 22:00; Stop 08/03/19 at 21:59; Status DC Sodium Chloride (Normal Saline Flush) 10 ml QSHIFT PRN IV AFTER MEDS AND BLOOD DRAWS; Start 08/02/19 at 15:00; Stop 08/30/19 at 11:27; Status DC Sodium Chloride (Normal Saline Flush) 10 ml PRN Q5MIN PRN IV AFTER MEDS AND BLOOD DRAWS; Start 08/02/19 at 15:00 Sodium Chloride (Normal Saline Flush) 20 ml PRN Q5MIN PRN IV AFTER MEDS AND BLOOD DRAWS; Start 08/02/19 at 15:00 Sodium Chloride 100 meq/Potassium Phosphate 19 mmol/ Magnesium Sulfate 12 meq/Calcium Gluconate 15 meq/ Multivitamins 10 ml/Chromium/ Copper/Manganese/ Seleni/Zn 0.5 ml/ Insulin Human Regular 40 unit/ Potassium Chloride 20 meq/ Total Parenteral Nutrition/Amino Acids/Dextrose/ Fat Emulsion Intravenous 1,400 ml @ 58.333 mls/ hr TPN CONT IV Last administered on 08/03/19at 21:20; Start 08/03/19 at 22:00; Stop 08/04/19 at 21:59; Status DC Lidocaine HCl (Buffered Lidocaine 1%) 3 ml STK-MED ONCE .ROUTE ; Start 08/03/19 at 13:16; Stop 08/03/19 at 13:16; Status DC Lidocaine HCl (Buffered Lidocaine 1%) 6 ml 1X ONCE INJ Last administered on 08/03/19at 13:45; Start 08/03/19 at 13:30; Stop 08/03/19 at 13:31; Status DC Albumin Human 100 ml @ 100 mls/hr 1X ONCE IV Last administered on 08/03/19at 15:41; Start 08/03/19 at 15:00; Stop 08/03/19 at 15:59; Status DC Albumin Human 50 ml @ 50 mls/hr 1X ONCE IV Last administered on 08/03/19at 15:00; Start 08/03/19 at 15:00; Stop 08/03/19 at 15:59; Status DC Info (PHARMACY MONITORING -- do not chart) 1 each PRN DAILY PRN MC SEE COMMENTS; Start 08/04/19 at 11:30; Status Cancel Info (PHARMACY MONITORING -- do not chart) 1 each PRN DAILY PRN MC SEE COMMENTS; Start 08/04/19 at 11:30; Status UNV Sodium Chloride 100 meq/Potassium Phosphate 10 mmol/ Magnesium Sulfate 12 meq/Calcium Gluconate 15 meq/ Multivitamins 10 ml/Chromium/ Copper/Manganese/ Seleni/Zn 0.5 ml/ Insulin Human Regular 35 unit/ Potassium Chloride 20 meq/ Total Parenteral Nutrition/Amino Acids/Dextrose/ Fat Emulsion Intravenous 1,400 ml @ 58.333 mls/ hr TPN CONT IV Last administered on 08/04/19at 22:10; Start 08/04/19 at 22:00; Stop 08/05/19 at 21:59; Status DC Sodium Chloride 100 meq/Potassium Phosphate 5 mmol/ Magnesium Sulfate 12 meq/Calcium Gluconate 15 meq/ Multivitamins 10 ml/Chromium/ Copper/Manganese/ Seleni/Zn 0.5 ml/ Insulin Human Regular 35 unit/ Potassium Chloride 20 meq/ Total Parenteral Nutrition/Amino Acids/Dextrose/ Fat Emulsion Intravenous 1,400 ml @ 58.333 mls/ hr TPN CONT IV Last administered on 08/05/19at 22:59; Start 08/05/19 at 22:00; Stop 08/06/19 at 21:59; Status DC Sodium Chloride 1,000 ml @ 1,000 mls/hr Q1H PRN IV hypotension; Start 08/06/19 at 08:27; Stop 08/06/19 at 14:26; Status DC Albumin Human 200 ml @ 200 mls/hr 1X PRN PRN IV Hypotension Last administered on 08/06/19at 09:18; Start 08/06/19 at 08:30; Stop 08/06/19 at 14:29; Status DC Sodium Chloride 1,000 ml @ 400 mls/hr Q2H30M PRN IV PATENCY; Start 08/06/19 at 08:27; Stop 08/06/19 at 20:26; Status DC Info (PHARMACY MONITORING -- do not chart) 1 each PRN DAILY PRN MC SEE COMMENTS; Start 08/06/19 at 08:30; Status Cancel Info (PHARMACY MONITORING -- do not chart) 1 each PRN DAILY PRN MC SEE COMMENTS; Start 08/06/19 at 08:30; Stop 08/14/19 at 13:10; Status DC Sodium Chloride 100 meq/Potassium Chloride 40 meq/ Magnesium Sulfate 15 meq/Calcium Gluconate 15 meq/ Multivitamins 10 ml/Chromium/ Copper/Manganese/ Seleni/Zn 0.5 ml/ Insulin Human Regular 35 unit/ Total Parenteral Nutrition/Amino Acids/Dextrose/ Fat Emulsion Intravenous 1,400 ml @ 58.333 mls/ hr TPN CONT IV Last administered on 08/06/19at 22:00; Start 08/06/19 at 22:00; Stop 08/07/19 at 21:59; Status DC Potassium Chloride/Water 100 ml @ 100 mls/hr 1X ONCE IV Last administered on 08/06/19at 17:28; Start 08/06/19 at 14:45; Stop 08/06/19 at 15:44; Status DC Sodium Chloride 100 meq/Potassium Chloride 40 meq/ Magnesium Sulfate 15 meq/Calcium Gluconate 15 meq/ Multivitamins 10 ml/Chromium/ Copper/Manganese/ Seleni/Zn 0.5 ml/ Insulin Human Regular 35 unit/ Total Parenteral Nutrition/Amino Acids/Dextrose/ Fat Emulsion Intravenous 1,400 ml @ 58.333 mls/ hr TPN CONT IV Last administered on 08/07/19at 22:46; Start 08/07/19 at 22:00; Stop 08/08/19 at 21:59; Status DC Sodium Chloride 100 meq/Potassium Chloride 40 meq/ Magnesium Sulfate 20 meq/Calcium Gluconate 15 meq/ Multivitamins 10 ml/Chromium/ Copper/Manganese/ Seleni/Zn 0.5 ml/ Insulin Human Regular 35 unit/ Total Parenteral Nutr ition/Amino Acids/Dextrose/ Fat Emulsion Intravenous 1,400 ml @ 58.333 mls/ hr TPN CONT IV Last administered on 08/08/19at 22:31; Start 08/08/19 at 22:00; Stop 08/09/19 at 21:59; Status DC Fentanyl Citrate (Fentanyl 2ml Vial) 50 mcg PRN Q2HR PRN IVP PAIN Last administered on 08/15/19at 13:32; Start 08/08/19 at 21:00; Stop 08/16/19 at 12:53; Status DC Fentanyl Citrate (Fentanyl 2ml Vial) 25 mcg PRN Q2HR PRN IVP PAIN; Start 08/08/19 at 21:00; Stop 08/16/19 at 12:54; Status DC Enoxaparin Sodium (Lovenox 100mg Syringe) 100 mg Q12HR SQ ; Start 08/09/19 at 21:00; Status UNV Amino Acids/ Glycerin/ Electrolytes 1,000 ml @ 75 mls/hr [id number] IV ; Start 08/08/19 at 21:15; Status UNV Sodium Chloride 1,000 ml @ 1,000 mls/hr Q1H PRN IV hypotension; Start 08/09/19 at 07:56; Stop 08/09/19 at 13:55; Status DC Albumin Human 200 ml @ 200 mls/hr 1X PRN PRN IV Hypotension Last administered on 08/09/19at 08:40; Start 08/09/19 at 08:00; Stop 08/09/19 at 13:59; Status DC Sodium Chloride 1,000 ml @ 400 mls/hr Q2H30M PRN IV PATENCY; Start 08/09/19 at 07:56; Stop 08/09/19 at 19:55; Status DC Info (PHARMACY MONITORING -- do not chart) 1 each PRN DAILY PRN MC SEE COMMENTS; Start 08/09/19 at 08:00; Status UNV Info (PHARMACY MONITORING -- do not chart) 1 each PRN DAILY PRN MC SEE COMMENTS; Start 08/09/19 at 08:00; Status UNV Daptomycin 430 mg/ Sodium Chloride 50 ml @ 100 mls/hr Q24H IV Last admi nistered on 08/09/19at 12:35; Start 08/09/19 at 09:00; Stop 08/09/19 at 12:49; Status DC Sodium Chloride 100 meq/Potassium Chloride 40 meq/ Magnesium Sulfate 20 meq/Calcium Gluconate 15 meq/ Multivitamins 10 ml/Chromium/ Copper/Manganese/ Seleni/Zn 0.5 ml/ Insulin Human Regular 35 unit/ Total Parenteral Nutrition/Amino Acids/Dextrose/ Fat Emulsion Intravenous 1,400 ml @ 58.333 mls/ hr TPN CONT IV Last administered on 08/09/19at 21:26; Start 08/09/19 at 22:00; Stop 08/10/19 at 21:59; Status DC Daptomycin 430 mg/ Sodium Chloride 50 ml @ 100 mls/hr Q48H IV ; Start 08/11/19 at 09:00; Stop 08/10/19 at 11:55; Status DC Sodium Chloride 100 meq/Potassium Chloride 40 meq/ Magnesium Sulfate 20 meq/Calcium Gluconate 15 meq/ Multivitamins 10 ml/Chromium/ Copper/Manganese/ Seleni/Zn 0.5 ml/ Insulin Human Regular 35 unit/ Total Parenteral Nutrition/Amino Acids/Dextrose/ Fat Emulsion Intravenous 1,400 ml @ 58.333 mls/ hr TPN CONT IV Last administered on 08/10/19at 22:27; Start 08/10/19 at 22:00; Stop 08/11/19 at 21:59; Status DC Daptomycin 430 mg/ Sodium Chloride 50 ml @ 100 mls/hr Q24H IV Last administered on 08/12/19at 15:07; Start 08/10/19 at 13:00; Stop 08/13/19 at 13:15; Status DC Sodium Chloride 100 meq/Potassium Chloride 40 meq/ Magnesium Sulfate 20 meq/Calc ium Gluconate 10 meq/ Multivitamins 10 ml/Chromium/ Copper/Manganese/ Seleni/Zn 0.5 ml/ Insulin Human Regular 35 unit/ Total Parenteral Nutrition/Amino Acids/Dextrose/ Fat Emulsion Intravenous 1,400 ml @ 58.333 mls/ hr TPN CONT IV Last administered on 08/12/19at 00:06; Start 08/11/19 at 22:00; Stop 08/12/19 at 21:59; Status DC Alteplase, Recombinant (Cathflo For Central Catheter Clearance) 1 mg 1X ONCE INT CAT Last administered on 08/12/19at 11:44; Start 08/12/19 at 10:45; Stop 08/12/19 at 10:46; Status DC Ondansetron HCl (Zofran) 4 mg PRN Q6HRS PRN IV NAUSEA/VOMITING; Start 08/15/19 at 07:00; Stop 08/16/19 at 06:59; Status DC Fentanyl Citrate (Fentanyl 2ml Vial) 25 mcg PRN Q5MIN PRN IV MILD PAIN 1-3; Start 08/15/19 at 07:00; Stop 08/16/19 at 06:59; Status DC Fentanyl Citrate (Fentanyl 2ml Vial) 50 mcg PRN Q5MIN PRN IV MODERATE TO SEVERE PAIN Last administered on 08/15/19at 10:17; Start 08/15/19 at 07:00; Stop 08/16/19 at 06:59; Status DC Ringer's Solution 1,000 ml @ 30 mls/hr Q24H IV ; Start 08/15/19 at 07:00; Stop 08/15/19 at 18:59; Status DC Lidocaine HCl (Xylocaine-Mpf 1% 2ml Vial) 2 ml PRN 1X PRN ID PRIOR TO IV START; Start 08/15/19 at 07:00; Stop 08/16/19 at 06:59; Status DC Prochlorperazine Edisylate (Compazine) 5 mg PACU PRN PRN IV NAUSEA, MRX1; Start 08/15/19 at 07:00; Stop 08/16/19 at 06:59; Status DC Sodium Acetate 50 meq/Potassium Acetate 55 meq/ Magnesium Sulfate 20 meq/Calcium Gluconate 10 meq/ Multivitamins 10 ml/Chromium/ Copper/Manganese/ Seleni/Zn 0.5 ml/ Insulin Human Regular 35 unit/ Total Parenteral Nutrition/Amino Acids/Dextrose/ Fat Emulsion Intravenous 1,400 ml @ 58.333 mls/ hr TPN CONT IV ; Start 08/12/19 at 22:00; Stop 08/12/19 at 14:15; Status DC Sodium Acetate 50 meq/Potassium Acetate 55 meq/ Magnesium Sulfate 20 meq/Calcium Gluconate 10 meq/ Multivitamins 10 ml/Chromium/ Copper/Manganese/ Seleni/Zn 0.5 ml/ Insulin Human Regular 35 unit/ Total Parenteral Nutrition/Amino Acids/Dextrose/ Fat Emulsion Intravenous 1,800 ml @ 75 mls/hr TPN CONT IV Last administered on 08/12/19at 22:38; Start 08/12/19 at 22:00; Stop 08/13/19 at 21:59; Status DC Sodium Chloride 1,000 ml @ 1,000 mls/hr Q1H PRN IV hypotension; Start 08/12/19 at 15:31; Stop 08/12/19 at 21:30; Status DC Diphenhydramine HCl (Benadryl) 25 mg 1X PRN PRN IV ITCHING; Start 08/12/19 at 15:45; Stop 08/13/19 at 15:44; Status DC Diphenhydramine HCl (Benadryl) 25 mg 1X PRN PRN IV ITCHING; Start 08/12/19 at 15:45; Stop 08/13/19 at 15:44; Status DC Sodium Chloride 1,000 ml @ 400 mls/hr Q2H30M PRN IV PATENCY; Start 08/12/19 at 15:31; Stop 08/13/19 at 03:30; Status DC Info (PHARMACY MONITORING -- do not chart) 1 each PRN DAILY PRN MC SEE CO MMENTS; Start 08/12/19 at 15:45; Stop 09/13/19 at 14:14; Status DC Sodium Acetate 50 meq/Potassium Acetate 55 meq/ Magnesium Sulfate 20 meq/Calcium Gluconate 10 meq/ Multivitamins 10 ml/Chromium/ Copper/Manganese/ Seleni/Zn 0.5 ml/ Insulin Human Regular 35 unit/ Total Parenteral Nutrition/Amino Acids/Dextrose/ Fat Emulsion Intravenous 1,800 ml @ 75 mls/hr TPN CONT IV Last administered on 08/13/19at 22:03; Start 08/13/19 at 22:00; Stop 08/14/19 at 21:59; Status DC Daptomycin 430 mg/ Sodium Chloride 50 ml @ 100 mls/hr Q24H IV Last administered on 08/18/19at 13:00; Start 08/13/19 at 13:00; Stop 08/18/19 at 20:58; Status DC Heparin Sodium (Porcine) 1000 unit/Sodium Chloride 1,001 ml @ 1,001 mls/hr 1X ONCE IRR ; Start 08/15/19 at 06:00; Stop 08/15/19 at 06:59; Status DC Potassium Acetate 55 meq/Magnesium Sulfate 20 meq/ Calcium Gluconate 10 meq/ Multivitamins 10 ml/Chromium/ Copper/Manganese/ Seleni/Zn 0.5 ml/ Insulin Human Regular 35 unit/ Total Parenteral Nutrition/Amino Acids/Dextrose/ Fat Emulsion Intravenous 1,920 ml @ 80 mls/hr TPN CONT IV Last administered on 08/14/19at 22:10; Start 08/14/19 at 22:00; Stop 08/15/19 at 21:59; Status DC Dexamethasone Sodium Phosphate (Decadron) 4 mg STK-MED ONCE .ROUTE ; Start 08/15/19 at 10:56; Stop 08/15/19 at 10:57; Status DC Ondansetron HCl (Zofran) 4 mg STK-MED ONCE .ROUTE ; Start 08/15/19 at 10:56; Stop 08/15/19 at 10:57; Status DC Rocuronium Horace (Zemuron) 50 mg STK-MED ONCE .ROUTE ; Start 08/15/19 at 10:56; Stop 08/15/19 at 10:57; Status DC Fentanyl Citrate (Fentanyl 2ml Vial) 100 mcg STK-MED ONCE .ROUTE ; Start 08/15/19 at 10:56; Stop 08/15/19 at 10:57; Status DC Bupivacaine HCl/ Epinephrine Bitart (Sensorcain-Epi 0.5%-1:[id number] Mpf) 30 ml STK-MED ONCE .ROUTE Last administered on 08/15/19at 12:01; Start 08/15/19 at 10:58; Stop 08/15/19 at 10:58; Status DC Cellulose (Surgicel Hemostat 2x14) 1 each STK-MED ONCE .ROUTE ; Start 08/15/19 at 10:58; Stop 08/15/19 at 10:59; Status DC Iohexol (Omnipaque 300 Mg/ml) 50 ml STK-MED ONCE .ROUTE ; Start 08/15/19 at 10:58; Stop 08/15/19 at 10:59; Status DC Cellulose (Surgicel Hemostat 4x8) 1 each STK-MED ONCE .ROUTE ; Start 08/15/19 at 10:58; Stop 08/15/19 at 10:59; Status DC Bisacodyl (Dulcolax Supp) 10 mg STK-MED ONCE .ROUTE ; Start 08/15/19 at 10:59; Stop 08/15/19 at 10:59; Status DC Heparin Sodium (Porcine) 1000 unit/Sodium Chloride 1,001 ml @ 1,001 mls/hr 1X ONCE IRR ; Start 08/15/19 at 12:00; Stop 08/15/19 at 12:59; Status DC Propofol 20 ml @ As Directed STK-MED ONCE IV ; Start 08/15/19 at 11:05; Stop 08/15/19 at 11:05; Status DC Sevoflurane (Ultane) 90 ml STK-MED ONCE IH ; Start 08/15/19 at 11:05; Stop 08/15/19 at 11:05; Status DC Sevoflurane (Ultane) 60 ml STK-MED ONCE IH ; Start 08/15/19 at 12:26; Stop 08/15/19 at 12:27; Status DC Propofol 20 ml @ As Directed STK-MED ONCE IV ; Start 08/15/19 at 12:26; Stop 08/15/19 at 12:27; Status DC Phenylephrine HCl (PHENYLEPHRINE in 0.9% NACL PF) 1 mg STK-MED ONCE IV ; Start 08/15/19 at 12:34; Stop 08/15/19 at 12:34; Status DC Heparin Sodium (Porcine) (Heparin Sodium) 5,000 unit Q12HR SQ Last administered on 08/24/19at 20:57; Start 08/15/19 at 21:00; Stop 08/25/19 at 09:59; Status DC Sodium Chloride (Normal Saline Flush) 3 ml QSHIFT PRN IV AFTER MEDS AND BLOOD DRAWS; Start 08/15/19 at 13:45 Naloxone HCl (Narcan) 0.4 mg PRN Q2MIN PRN IV SEE INSTRUCTIONS Last administered on 09/24/19at 15:15; Start 08/15/19 at 13:45 Sodium Chloride 1,000 ml @ 25 mls/hr Q24H IV Last administered on 09/13/19at 13:37; Start 08/15/19 at 13:37; Stop 09/16/19 at 13:09; Status DC Naloxone HCl (Narcan) 0.4 mg PRN Q2MIN PRN IV SEE INSTRUCTIONS; Start 08/15/19 at 14:30; Status UNV Sodium Chloride 1,000 ml @ 25 mls/hr Q24H IV ; Start 08/15/19 at 14:30; Status UNV Hydromorphone HCl 30 ml @ 0 mls/hr CONT PRN PRN IV PER PROTOCOL Last administe red on 08/20/19at 16:08; Start 08/15/19 at 14:30; Stop 08/22/19 at 08:55; Status DC Potassium Acetate 55 meq/Magnesium Sulfate 20 meq/ Calcium Gluconate 10 meq/ Multivitamins 10 ml/Chromium/ Copper/Manganese/ Seleni/Zn 0.5 ml/ Insulin Human Regular 35 unit/ Total Parenteral Nutrition/Amino Acids/Dextrose/ Fat Emulsion Intravenous 1,920 ml @ 80 mls/hr TPN CONT IV Last administered on 08/15/19at 22:01; Start 08/15/19 at 22:00; Stop 08/16/19 at 21:59; Status DC Bumetanide (Bumex) 2 mg [id number] IV Last administered on 08/19/19at 13:50; Start 08/16/19 at 14:00; Stop 08/20/19 at 14:10; Status DC Meropenem 1 gm/ Sodium Chloride 100 ml @ 200 mls/hr Q8HRS IV Last administered on 09/09/19at 05:53; Start 08/16/19 at 14:00; Stop 09/09/19 at 09:31; Status DC Potassium Acetate 55 meq/Magnesium Sulfate 20 meq/ Calcium Gluconate 10 meq/ Multivitamins 10 ml/Chromium/ Copper/Manganese/ Seleni/Zn 0.5 ml/ Insulin Human Regular 35 unit/ Total Parenteral Nutrition/Amino Acids/Dextrose/ Fat Emulsion Intravenous 1,920 ml @ 80 mls/hr TPN CONT IV Last administered on 08/16/19at 22:02; Start 08/16/19 at 22:00; Stop 08/17/19 at 21:59; Status DC Hydromorphone HCl (Dilaudid Standard MILL BEAM FITTER) 12 mg STK-MED ONCE IV ; Start 08/15/19 at 14:35; Stop 08/16/19 at 13:53; Status DC Artificial Tears (Artificial Tears) 1 drop PRN Q15MIN PRN OU DRY EYE Last administered on 09/16/19at 10:08; Start 08/17/19 at 05:30 Hydromorphone HCl (Dilaudid Standard MILL BEAM FITTER) 12 mg STK-MED ONCE IV ; Start 08/16/19 at 12:05; Stop 08/17/19 at 09:15; Status DC Potassium Acetate 65 meq/Magnesium Sulfate 20 meq/ Calcium Gluconate 10 meq/ Multivitamins 10 ml/Chromium/ Copper/Manganese/ Seleni/Zn 0.5 ml/ Insulin Human Regular 30 unit/ Total Parenteral Nutrition/Amino Acids/Dextrose/ Fat Emulsion Intravenous 1,920 ml @ 80 mls/hr TPN CONT IV Last administered on 08/17/19at 22:22; Start 08/17/19 at 22:00; Stop 08/18/19 at 21:59; Status DC Cyclobenzaprine HCl (Flexeril) 10 mg PRN Q6HRS PRN PO MUSCLE SPASMS; Start 08/18/19 at 10:45 Potassium Acetate 55 meq/Magnesium Sulfate 20 meq/ Calcium Gluconate 10 meq/ Multivitamins 10 ml/Chromium/ Copper/Manganese/ Seleni/Zn 0.5 ml/ Insulin Human Regular 30 unit/ Total Parenteral Nutrition/Amino Acids/Dextrose/ Fat Emulsion Intravenous 1,920 ml @ 80 mls/hr TPN CONT IV Last administered on 08/19/19at 01:00; Start 08/18/19 at 22:00; Stop 08/19/19 at 21:59; Status DC Magnesium Sulfate 50 ml @ 25 mls/hr 1X ONCE IV Last administered on 08/18/19at 17:18; Start 08/18/19 at 12:45; Stop 08/18/19 at 14:44; Status DC Potassium Chloride/Water 100 ml @ 100 mls/hr 1X ONCE IV Last administered on 08/19/19at 11:27; Start 08/19/19 at 12:00; Stop 08/19/19 at 12:59; Status DC Hydromorphone HCl (Dilaudid Standard MILL BEAM FITTER) 12 mg STK-MED ONCE IV ; Start 08/17/19 at 10:50; Stop 08/19/19 at 11:02; Status DC Hydromorphone HCl (Dilaudid Standard MILL BEAM FITTER) 12 mg STK-MED ONCE IV ; Start 08/18/19 at 13:47; Stop 08/19/19 at 11:03; Status DC Potassium Acetate 30 meq/Magnesium Sulfate 20 meq/ Calcium Gluconate 10 meq/ Multivitamins 10 ml/Chromium/ Copper/Manganese/ Seleni/Zn 0.5 ml/ Insulin Human Regular 30 unit/ Potassium Chloride 30 meq/ Total Parenteral Nutrition/Amino Acids/Dextrose/ Fat Emulsion Intravenous 1,920 ml @ 80 mls/hr TPN CONT IV Last administered on 08/19/19at 22:34; Start 08/19/19 at 22:00; Stop 08/20/19 at 21:59; Status DC Potassium Chloride/Water 100 ml @ 100 mls/hr Q1H IV Last administered on 08/20/19at 13:05; Start 08/20/19 at 07:00; Stop 08/20/19 at 10:59; Status DC Magnesium Sulfate 50 ml @ 25 mls/hr 1X ONCE IV Last administered on 08/20/19at 10:34; Start 08/20/19 at 10:30; Stop 08/20/19 at 12:29; Status DC Potassium Chloride 75 meq/ Magnesium Sulfate 20 meq/Calcium Gluconate 10 meq/ Multivitamins 10 ml/Chromium/ Copper/Manganese/ Seleni/Zn 0.5 ml/ Insulin Human Regular 30 unit/ Total Parenteral Nutrition/Amino Acids/Dextrose/ Fat Emulsion Intravenous 1,920 ml @ 80 mls/hr TPN CONT IV Last administered on 08/20/19at 21:51; Start 08/20/19 at 22:00; Stop 08/21/19 at 22:00; Status DC Potassium Chloride 75 meq/ Magnesium Sulfate 20 meq/Calcium Gluconate 10 meq/ Multivitamins 10 ml/Chromium/ Copper/Manganese/ Seleni/Zn 0.5 ml/ Insulin Human Regular 25 unit/ Total Parenteral Nutrition/Amino Acids/Dextrose/ Fat Emulsion Intravenous 1,920 ml @ 80 mls/hr TPN CONT IV Last administered on 08/21/19at 22:04; Start 08/21/19 at 22:00; Stop 08/22/19 at 21:59; Status DC Hydromorphone HCl (Dilaudid) 0.4 mg PRN Q4HRS PRN IVP PAIN Last administered on 08/22/19at 10:57; Start 08/22/19 at 09:00; Stop 08/22/19 at 18:59; Status DC Micafungin Sodium 100 mg/Dextrose 100 ml @ 100 mls/hr Q24H IV Last administered on 09/13/19at 12:17; Start 08/22/19 at 11:00; Stop 09/14/19 at 09:59; Status DC Daptomycin 485 mg/ Sodium Chloride 50 ml @ 100 mls/hr Q24H IV Last administered on 08/29/19at 13:10; Start 08/22/19 at 11:00; Stop 08/30/19 at 07:44; Status DC Potassium Chloride 75 meq/ Magnesium Sulfate 15 meq/Calcium Gluconate 8 meq/ Multivitamins 10 ml/Chromium/ Copper/Manganese/ Seleni/Zn 0.5 ml/ Insulin Human Regular 25 unit/ Total Parenteral Nutrition/Amino Acids/Dextrose/ Fat Emulsion Intravenous 1,920 ml @ 80 mls/hr TPN CONT IV Last administered on 08/22/19at 23:08; Start 08/22/19 at 22:00; Stop 08/23/19 at 21:59; Status DC Haloperidol Lactate (Haldol Inj) 3 mg 1X ONCE IVP Last administered on 08/22/19at 14:37; Start 08/22/19 at 14:30; Stop 08/22/19 at 14:31; Status DC Hydromorphone HCl (Dilaudid) 1 mg PRN Q4HRS PRN IVP PAIN Last administered on 09/05/19at 06:25; Start 08/22/19 at 19:00; Stop 09/05/19 at 17:10; Status DC Potassium Chloride 75 meq/ Magnesium Sulfate 15 meq/Calcium Gluconate 8 meq/ Multivitamins 10 ml/Chromium/ Copper/Manganese/ Seleni/Zn 0.5 ml/ Insulin Human Regular 20 unit/ Total Parenteral Nutrition/Amino Acids/Dextrose/ Fat Emulsion Intravenous 1,920 ml @ 80 mls/hr TPN CONT IV Last administered on 08/23/19at 22:10; Start 08/23/19 at 22:00; Stop 08/24/19 at 21:59; Status DC Lidocaine HCl (Buffered Lidocaine 1%) 3 ml STK-MED ONCE .ROUTE ; Start 08/24/19 at 11:31; Stop 08/24/19 at 11:31; Status DC Lidocaine HCl (Buffered Lidocaine 1%) 3 ml STK-MED ONCE .ROUTE ; Start 08/24/19 at 12:28; Stop 08/24/19 at 12:29; Status DC Lidocaine HCl (Buffered Lidocaine 1%) 6 ml 1X ONCE INJ Last administered on 08/24/19at 12:53; Start 08/24/19 at 12:45; Stop 08/24/19 at 12:46; Status DC Potassium Chloride 75 meq/ Magnesium Sulfate 15 meq/Calcium Gluconate 8 meq/ M ultivitamins 10 ml/Chromium/ Copper/Manganese/ Seleni/Zn 0.5 ml/ Insulin Human Regular 20 unit/ Total Parenteral Nutrition/Amino Acids/Dextrose/ Fat Emulsion Intravenous 1,920 ml @ 80 mls/hr TPN CONT IV Last administered on 08/24/19at 22:00; Start 08/24/19 at 22:00; Stop 08/25/19 at 21:59; Status DC Potassium Chloride 75 meq/ Magnesium Sulfate 15 meq/Calcium Gluconate 8 meq/ Multivitamins 10 ml/Chromium/ Copper/Manganese/ Seleni/Zn 0.5 ml/ Insulin Human Regular 15 unit/ Total Parenteral Nutrition/Amino Acids/Dextrose/ Fat Emulsion Intravenous 1,920 ml @ 80 mls/hr TPN CONT IV Last administered on 08/25/19at 22:28; Start 08/25/19 at 22:00; Stop 08/26/19 at 21:59; Status DC Vecuronium Horace (Norcuron Bolus) 6 mg PRN Q6HRS PRN IV VENT ASYNCHRONY; Start 08/25/19 at 19:15; Stop 08/25/19 at 19:35; Status DC Bumetanide (Bumex) 2 mg 1X ONCE IV Last administered on 08/25/19at 22:09; Start 08/25/19 at 19:45; Stop 08/25/19 at 19:46; Status DC Lidocaine HCl (Buffered Lidocaine 1%) 3 ml STK-MED ONCE .ROUTE ; Start 08/26/19 at 07:59; Stop 08/26/19 at 07:59; Status DC Midazolam HCl (Versed) 5 mg STK-MED ONCE .ROUTE ; Start 08/26/19 at 08:36; Stop 08/26/19 at 08:36; Status DC Fentanyl Citrate (Fentanyl 5ml Vial) 250 mcg STK-MED ONCE .ROUTE ; Start 08/26/19 at 08:36; Stop 08/26/19 at 08:37; Status DC Lidocaine HCl (Buffered Lidocaine 1%) 3 ml 1X ONCE IJ Last administered on 08/26/19at 09:30; Start 08/26/19 at 09:15; Stop 08/26/19 at 09:16; Status DC Midazolam HCl (Versed) 5 mg 1X ONCE IV Last administered on 08/26/19at 09:30; Start 08/26/19 at 09:15; Stop 08/26/19 at 09:16; Status DC Fentanyl Citrate (Fentanyl 5ml Vial) 250 mcg 1X ONCE IV Last administered on 08/26/19at 09:30; Start 08/26/19 at 09:15; Stop 08/26/19 at 09:16; Status DC Bumetanide (Bumex) 2 mg DAILY IV Last administered on 09/05/19at 08:07; Start 08/26/19 at 10:00; Stop 09/05/19 at 17:15; Status DC Potassium Chloride 75 meq/ Magnesium Sulfate 15 meq/ Multivitamins 10 ml/Chromium/ Copper/Manganese/ Seleni/Zn 0.5 ml/ Insulin Human Regular 15 unit/ Total Parenteral Nutrition/Amino Acids/Dextrose/ Fat Emulsion Intravenous 1,920 ml @ 80 mls/hr TPN CONT IV Last administered on 08/26/19at 21:59; Start 08/26/19 at 22:00; Stop 08/27/19 at 21:59; Status DC Metoclopramide HCl (Reglan Vial) 10 mg PRN Q3HRS PRN IVP NAUSEA/VOMITING-3rd choice Last administered on 09/01/19at 04:25; Start 08/27/19 at 16:45 Potassium Chloride 75 meq/ Magnesium Sulfate 15 meq/ Multivitamins 10 ml/Chromium/ Copper/Manganese/ Seleni/Zn 0.5 ml/ Insulin Human Regular 15 unit/ Total Parenteral Nutrition/Amino Acids/Dextrose/ Fat Emulsion Intravenous 1,920 ml @ 80 mls/hr TPN CONT IV Last administered on 08/27/19at 22:41; Start 08/27/19 at 22:00; Stop 08/28/19 at 21:59; Status DC Magnesium Sulfate 50 ml @ 25 mls/hr 1X ONCE IV Last administered on 08/28/19at 10:44; Start 08/28/19 at 09:00; Stop 08/28/19 at 10:59; Status DC Potassium Chloride/Water 100 ml @ 100 mls/hr 1X ONCE IV Last administered on 08/28/19at 09:37; Start 08/28/19 at 09:00; Stop 08/28/19 at 09:59; Status DC Duloxetine HCl (Cymbalta) 30 mg DAILY PO Last administered on 08/29/19at 09:48; Start 08/28/19 at 14:00; Stop 08/31/19 at 10:25; Status DC Potassium Chloride 80 meq/ Magnesium Sulfate 20 meq/ Multivitamins 10 ml/Chromium/ Copper/Manganese/ Seleni/Zn 0.5 ml/ Insulin Human Regular 15 unit/ Total Parenteral Nutrition/Amino Acids/Dextrose/ Fat Emulsion Intravenous 1,920 ml @ 80 mls/hr TPN CONT IV Last administered on 08/28/19at 21:42; Start 08/28/19 at 22:00; Stop 08/29/19 at 21:59; Status DC Potassium Chloride 80 meq/ Magnesium Sulfate 20 meq/ Multivitamins 10 ml/Chromium/ Copper/Manganese/ Seleni/Zn 0.5 ml/ Insulin Human Regular 15 unit/ Total Parenteral Nutrition/Amino Acids/Dextrose/ Fat Emulsion Intravenous 1,920 ml @ 80 mls/hr TPN CONT IV Last administered on 08/29/19at 22:20; Start 08/18 05/09 at 22:00; Stop 08/30/19 at 21:59; Status DC Lidocaine HCl (Buffered Lidocaine 1%) 3 ml STK-MED ONCE .ROUTE ; Start 08/30/19 at 09:54; Stop 08/30/19 at 09:55; Status DC Hydromorphone HCl (Dilaudid Standard MILL BEAM FITTER) 12 mg STK-MED ONCE IV ; Start 08/19/19 at 15:50; Stop 08/30/19 at 11:24; Status DC Potassium Chloride 80 meq/ Magnesium Sulfate 20 meq/ Multivitamins 10 ml/Chromium/ Copper/Manganese/ Seleni/Zn 0.5 ml/ Insulin Human Regular 15 unit/ Total Parenteral Nutrition/Amino Acids/Dextrose/ Fat Emulsion Intravenous 1,920 ml @ 80 mls/hr TPN CONT IV Last administered on 08/30/19at 21:40; Start 08/30/19 at 22:00; Stop 08/31/19 at 21:59; Status DC Lidocaine HCl (Buffered Lidocaine 1%) 6 ml 1X ONCE INJ Last administered on 08/30/19at 14:15; Start 08/30/19 at 14:15; Stop 08/30/19 at 14:16; Status DC Potassium Chloride 80 meq/ Magnesium Sulfate 20 meq/ Multivitamins 10 ml/Chromium/ Copper/Manganese/ Seleni/Zn 1 ml/ Insulin Human Regular 15 unit/ Total Parenteral Nutrition/Amino Acids/Dextrose/ Fat Emulsion Intravenous 1,920 ml @ 80 mls/hr TPN CONT IV Last administered on 08/31/19at 22:04; Start 08/31/19 at 22:00; Stop 09/01/19 at 21:59; Status DC Potassium Chloride/Water 100 ml @ 100 mls/hr 1X ONCE IV Last administered on 09/01/19at 11:34; Start 09/01/19 at 11:00; Stop 09/01/19 at 11:59; Status DC Potassium Chloride 90 meq/ Magnesium Sulfate 20 meq/ Multivitamins 10 ml/Chromium/ Copper/Manganese/ Seleni/Zn 1 ml/ Insulin Human Regular 15 unit/ Total Parenteral Nutrition/Amino Acids/Dextrose/ Fat Emulsion Intravenous 1,920 ml @ 80 mls/hr TPN CONT IV Last administered on 09/01/19at 22:57; Start 09/01/19 at 22:00; Stop 09/02/19 at 21:59; Status DC Potassium Chloride 90 meq/ Magnesium Sulfate 20 meq/ Multivitamins 10 ml/Chromium/ Copper/Manganese/ Seleni/Zn 1 ml/ Insulin Human Regular 15 unit/ Total Parenteral Nutrition/Amino Acids/Dextrose/ Fat Emulsion Intravenous 1,920 ml @ 80 mls/hr TPN CONT IV Last administered on 09/02/19at 22:48; Start 09/02/19 at 22:00; Stop 09/03/19 at 21:59; Status DC Potassium Chloride 90 meq/ Magnesium Sulfate 20 meq/ Multivitamins 10 ml/Chromium/ Copper/Manganese/ Seleni/Zn 1 ml/ Insulin Human Regular 15 unit/ Total Parenteral Nutrition/Amino Acids/Dextrose/ Fat Emulsion Intravenous 1,890 ml @ 78.75 mls/ hr TPN CONT IV Last administered on 09/03/19at 22:15; Start 09/03/19 at 22:00; Stop 09/04/19 at 21:59; Status DC Linezolid/Dextrose 300 ml @ 300 mls/hr Q12HR IV Last administered on 09/06/19at 21:08; Start 09/04/19 at 09:00; Stop 09/07/19 at 08:11; Status DC Daptomycin 450 mg/ Sodium Chloride 50 ml @ 100 mls/hr Q24H IV Last administered on 09/07/19at 09:25; Start 09/04/19 at 09:00; Stop 09/08/19 at 08:30; Status DC Potassium Chloride 90 meq/ Magnesium Sulfate 20 meq/ Multivitamins 10 ml/Chromium/ Copper/Manganese/ Seleni/Zn 1 ml/ Insulin Human Regular 15 unit/ Total Parenteral Nutrition/Amino Acids/Dextrose/ Fat Emulsion Intravenous 1,890 ml @ 78.75 mls/ hr TPN CONT IV Last administered on 09/04/19at 21:34; Start 09/04/19 at 22:00; Stop 09/05/19 at 21:59; Status DC Lorazepam (Ativan Inj) 2 mg STK-MED ONCE .ROUTE ; Start 09/04/19 at 14:58; Stop 09/04/19 at 14:58; Status DC Metoprolol Tartrate (Lopressor Vial) 5 mg 1X ONCE IVP Last administered on 09/04/19at 15:31; Start 09/04/19 at 15:15; Stop 09/04/19 at 15:16; Status DC Lorazepam (Ativan Inj) 2 mg 1X ONCE IVP Last administered on 09/04/19at 15:30; Start 09/04/19 at 15:15; Stop 09/04/19 at 15:16; Status DC Enoxaparin Sodium (Lovenox 40mg Syringe) 40 mg Q24H SQ Last administered on 09/23/19at 17:44; Start 09/04/19 at 17:00; Stop 09/25/19 at 06:50; Status DC Lorazepam (Ativan Inj) 1 mg PRN Q4HRS PRN IVP ANXIETY / AGITATION MILD-MOD Last administered on 09/18/19at 15:55; Start 09/04/19 at 19:15; Stop 09/20/19 at 11:45; Status DC Lorazepam (Ativan Inj) 2 mg PRN Q4HRS PRN IVP ANXIETY / AGITATION SEVERE Last administered on 09/19/19at 07:55; Start 09/04/19 at 19:15; Stop 09/20/19 at 11:45; Status DC Fentanyl Citrate (Fentanyl 2ml Vial) 50 mcg PRN Q4HRS PRN IVP SEVERE PAIN Last administered on 09/27/19at 04:40; Start 09/05/19 at 13:15 Fentanyl Citrate (Fentanyl 2ml Vial) 25 mcg PRN Q4HRS PRN IVP MODERATE PAIN Last administered on 09/27/19at 02:29; Start 09/05/19 at 13:15 Potassium Chloride 90 meq/ Magnesium Sulfate 20 meq/ Multivitamins 10 ml/Chromium/ Copper/Manganese/ Seleni/Zn 1 ml/ Insulin Human Regular 15 unit/ Total Parenteral Nutrition/Amino Acids/Dextrose/ Fat Emulsion Intravenous 1,890 ml @ 78.75 mls/ hr TPN CONT IV Last administered on 09/05/19at 22:18; Start 09/05/19 at 22:00; Stop 09/06/19 at 21:59; Status DC Furosemide (Lasix) 40 mg 1X ONCE IVP Last administered on 09/05/19at 21:51; Start 09/05/19 at 21:45; Stop 09/05/19 at 21:48; Status DC Albumin Human 100 ml @ 100 mls/hr 1X PRN PRN IV SEE COMMENTS; Start 09/06/19 at 01:30 Furosemide (Lasix) 40 mg [id number] IVP Last administered on 09/21/19at 08:04; Start 09/06/19 at 14:00; Stop 09/21/19 at 13:07; Status DC Potassium Chloride 90 meq/ Magnesium Sulfate 20 meq/ Multivitamins 10 ml/Chromium/ Copper/Manganese/ Seleni/Zn 1 ml/ Insulin Human Regular 15 unit/ Total Parenteral Nutrition/Amino Acids/Dextrose/ Fat Emulsion Intravenous 1,800 ml @ 75 mls/hr TPN CONT IV Last administered on 09/06/19at 22:31; Start 09/06/19 at 22:00; Stop 09/07/19 at 21:59; Status DC Potassium Chloride 90 meq/ Magnesium Sulfate 20 meq/ Multivitamins 10 ml/Chromium/ Copper/Manganese/ Seleni/Zn 1 ml/ Insulin Human Regular 15 unit/ Total Parenteral Nutrition/Amino Acids/Dextrose/ Fat Emulsion Intravenous 1,800 ml @ 75 mls/hr TPN CONT IV Last administered on 09/07/19at 22:28; Start 09/07/19 at 22:00; Stop 09/08/19 at 21:59; Status DC Potassium Chloride 110 meq/ Magnesium Sulfate 20 meq/ Multivitamins 10 ml/Chromium/ Copper/Manganese/ Seleni/Zn 1 ml/ Insulin Human Regular 15 unit/ Total Parenteral Nutrition/Amino Acids/Dextrose/ Fat Emulsion Intravenous 1,800 ml @ 75 mls/hr TPN CONT IV Last administered on 09/08/19at 22:01; Start 09/08/19 at 22:00; Stop 09/09/19 at 21:59; Status DC Saliva Substitute (Biotene Moisturizing Mouth) 2 spray PRN Q15MIN PRN PO DRY MOUTH; Start 09/08/19 at 11:00 Potassium Chloride 110 meq/ Magnesium Sulfate 20 meq/ Multivitamins 10 ml/Chromium/ Copper/Manganese/ Seleni/Zn 1 ml/ Insulin Human Regular 15 unit/ Total Parenteral Nutrition/Amino Acids/Dextrose/ Fat Emulsion Intravenous 1,800 ml @ 75 mls/hr TPN CONT IV Last administered on 09/09/19at 22:21; Start 09/09/19 at 22:00; Stop 09/10/19 at 21:59; Status DC Potassium Chloride 110 meq/ Magnesium Sulfate 20 meq/ Multivitamins 10 ml/Chromium/ Copper/Manganese/ Seleni/Zn 1 ml/ Insulin Human Regular 15 unit/ Total Parenteral Nutrition/Amino Acids/Dextrose/ Fat Emulsion Intravenous 1,800 ml @ 75 mls/hr TPN CONT IV Last administered on 09/10/19at 22:04; Start 09/10/19 at 22:00; Stop 09/11/19 at 21:59; Status DC Potassium Chloride 110 meq/ Magnesium Sulfate 20 meq/ Multivitamins 10 ml/Chromium/ Copper/Manganese/ Seleni/Zn 1 ml/ Insulin Human Regular 15 unit/ Total Parenteral Nutrition/Amino Acids/Dextrose/ Fat Emulsion Intravenous 1,800 ml @ 75 mls/hr TPN CONT IV Last administered on 09/11/19at 22:48; Start 09/11/19 at 22:00; Stop 09/12/19 at 21:59; Status DC Potassium Chloride 70 meq/ Magnesium Sulfate 20 meq/ Multivitamins 10 ml/Chromium/ Copper/Manganese/ Seleni/Zn 1 ml/ Insulin Human Regular 15 unit/ Total Parenteral Nutrition/Amino Acids/Dextrose/ Fat Emulsion Intravenous 1,800 ml @ 75 mls/hr TPN CONT IV Last administered on 09/12/19at 21:39; Start 09/12/19 at 22:00; Stop 09/13/19 at 21:59; Status DC Meropenem 500 mg/ Sodium Chloride 50 ml @ 100 mls/hr Q6HRS IV Last administered on 09/14/19at 06:02; Start 09/12/19 at 18:00; Stop 09/14/19 at 09:59; Status DC Barium Sulfate (Varibar Thin Liquid Apple) 148 gm 1X ONCE PO ; Start 09/13/19 at 11:45; Stop 09/13/19 at 11:49; Status DC Potassium Chloride 70 meq/ Magnesium Sulfate 20 meq/ Multivitamins 10 ml/Chromium/ Copper/Manganese/ Seleni/Zn 1 ml/ Insulin Human Regular 15 unit/ Total Parenteral Nutrition/Amino Acids/Dextrose/ Fat Emulsion Intravenous 1,800 ml @ 75 mls/hr TPN CONT IV Last administered on 09/13/19at 22:27; Start 09/13/19 at 22:00; Stop 09/14/19 at 21:59; Status DC Piperacillin Sod/ Tazobactam Sod 3.375 gm/Sodium Chloride 50 ml @ 100 mls/hr Q6HRS IV Last administered on 09/22/19at 06:10; Start 09/14/19 at 12:00; Stop 09/22/19 at 07:26; Status DC Potassium Chloride 70 meq/ Magnesium Sulfate 20 meq/ Multivitamins 10 ml/Chromium/ Copper/Manganese/ Seleni/Zn 1 ml/ Insulin Human Regular 15 unit/ Total Parenteral Nutrition/Amino Acids/Dextrose/ Fat Emulsion Intravenous 1,800 ml @ 75 mls/hr TPN CONT IV Last administered on 09/14/19at 22:03; Start 09/14/19 at 22:00; Stop 09/15/19 at 21:59; Status DC Potassium Chloride 70 meq/ Magnesium Sulfate 20 meq/ Multivitamins 10 ml/Chromium/ Copper/Manganese/ Seleni/Zn 1 ml/ Insulin Human Regular 15 unit/ Total Parenteral Nutrition/Amino Acids/Dextrose/ Fat Emulsion Intravenous 1,800 ml @ 75 mls/hr TPN CONT IV Last administered on 09/15/19at 22:33; Start 09/15/19 at 22:00; Stop 09/16/19 at 21:59; Status DC Potassium Chloride 70 meq/ Magnesium Sulfate 20 meq/ Multivitamins 10 ml/Chromium/ Copper/Manganese/ Seleni/Zn 1 ml/ Insulin Human Regular 15 unit/ Total Parenteral Nutrition/Amino Acids/Dextrose/ Fat Emulsion Intravenous 1,800 ml @ 75 mls/hr TPN CONT IV Last administered on 09/16/19at 23:13; Start 09/16/19 at 22:00; Stop 09/17/19 at 21:59; Status DC Potassium Chloride 80 meq/ Magnesium Sulfate 20 meq/ Multivitamins 10 ml/Chromium/ Copper/Manganese/ Seleni/Zn 1 ml/ Insulin Human Regular 15 unit/ Total Parenteral Nutrition/Amino Acids/Dextrose/ Fat Emulsion Intravenous 1,800 ml @ 75 mls/hr TPN CONT IV Last administered on 09/17/19at 22:30; Start 09/17/19 at 22:00; Stop 09/18/19 at 21:59; Status DC Potassium Chloride 80 meq/ Magnesium Sulfate 20 meq/ Multivitamins 10 ml/Chromium/ Copper/Manganese/ Seleni/Zn 1 ml/ Insulin Human Regular 15 unit/ Total Parenteral Nutrition/Amino Acids/Dextrose/ Fat Emulsion Intravenous 1,800 ml @ 75 mls/hr TPN CONT IV Last administered on 09/18/19at 21:54; Start 09/18/19 at 22:00; Stop 09/19/19 at 21:59; Status DC Potassium Chloride/Water 100 ml @ 100 mls/hr 1X ONCE IV Last administered on 09/19/19at 10:15; Start 09/19/19 at 10:00; Stop 09/19/19 at 10:59; Status DC Potassium Chloride 90 meq/ Magnesium Sulfate 20 meq/ Multivitamins 10 ml/Chromium/ Copper/Manganese/ Seleni/Zn 1 ml/ Insulin Human Regular 20 unit/ Total Parenteral Nutrition/Amino Acids/Dextrose/ Fat Emulsion Intravenous 1,800 ml @ 75 mls/hr TPN CONT IV Last administered on 09/19/19at 22:28; Start 09/19/19 at 22:00; Stop 09/20/19 at 21:59; Status DC Potassium Chloride 90 meq/ Magnesium Sulfate 20 meq/ Multivitamins 10 ml/Rn Recruitment mium/ Copper/Manganese/ Seleni/Zn 1 ml/ Insulin Human Regular 20 unit/ Total Parenteral Nutrition/Amino Acids/Dextrose/ Fat Emulsion Intravenous 1,800 ml @ 75 mls/hr TPN CONT IV Last administered on 09/20/19at 22:08; Start 09/20/19 at 22:00; Stop 09/21/19 at 21:59; Status DC Lorazepam (Ativan Inj) 0.25 mg PRN Q4HRS PRN IVP ANXIETY / AGITATION Last administered on 09/27/19at 03:31; Start 09/21/19 at 07:30 Potassium Chloride 90 meq/ Magnesium Sulfate 20 meq/ Multivitamins 10 ml/Chromium/ Copper/Manganese/ Seleni/Zn 1 ml/ Insulin Human Regular 20 unit/ Total Parenteral Nutrition/Amino Acids/Dextrose/ Fat Emulsion Intravenous 1,800 ml @ 75 mls/hr TPN CONT IV Last administered on 09/21/19at 23:13; Start 09/21/19 at 22:00; Stop 09/22/19 at 21:59; Status DC Furosemide (Lasix) 40 mg DAILY IVP Last administered on 09/23/19at 11:14; Start 09/21/19 at 13:30; Stop 09/25/19 at 09:12; Status DC Fluoxetine HCl (PROzac) 20 mg QHS PEG Last administered on 09/26/19at 20:55; Start 09/22/19 at 21:00 Fentanyl (Duragesic 50mcg/ Hr Patch) 1 patch Q72H TD Last administered on 09/22/19at 21:22; Start 09/22/19 at 21:00 Potassium Chloride 40 meq/ Potassium Acetate 60 meq/Magnesium Sulfate 10 meq/ Multivitamins 10 ml/Chromium/ Copper/Manganese/ Seleni/Zn 1 ml/ Insulin Human Regular 20 unit/ Total Parenteral Nutrition/Amino Acids/Dextrose/ Fat Emulsion Intravenous 1,800 ml @ 75 mls/hr TPN CONT IV Last administered on 09/23/19at 00:03; Start 09/22/19 at 22:00; Stop 09/23/19 at 21:59; Status DC Potassium Acetate 80 meq/Magnesium Sulfate 5 meq/ Multivitamins 10 ml/Chromium/ Copper/Manganese/ Seleni/Zn 1 ml/ Insulin Human Regular 20 unit/ Total Parenteral Nutrition/Amino Acids/Dextrose/ Fat Emulsion Intravenous 1,920 ml @ 80 mls/hr TPN CONT IV Last administered on 09/23/19at 21:59; Start 09/23/19 at 22 :00; Stop 09/24/19 at 21:59; Status DC Potassium Acetate 60 meq/Magnesium Sulfate 5 meq/ Multivitamins 10 ml/Chromium/ Copper/Manganese/ Seleni/Zn 1 ml/ Insulin Human Regular 30 unit/ Total Parenteral Nutrition/Amino Acids/Dextrose/ Fat Emulsion Intravenous 1,920 ml @ 80 mls/hr TPN CONT IV Last administered on 09/24/19at 21:54; Start 09/24/19 at 22:00; Stop 09/25/19 at 21:59; Status DC Norepinephrine Bitartrate 8 mg/ Dextrose 258 ml @ 13.332 mls/ hr CONT PRN IV PER PROTOCOL Last administered on 09/25/19at 21:46; Start 09/25/19 at 06:30 Albumin Human 500 ml @ 125 mls/hr 1X ONCE IV Last administered on 09/25/19at 08:10; Start 09/25/19 at 08:15; Stop 09/25/19 at 12:14; Status DC Potassium Acetate 40 meq/Magnesium Sulfate 5 meq/ Multivitamins 10 ml/Chromium/ Copper/Manganese/ Seleni/Zn 1 ml/ Insulin Human Regular 30 unit/ Total Parenteral Nutrition/Amino Acids/Dextrose/ Fat Emulsion Intravenous 1,920 ml @ 80 mls/hr TPN CONT IV Last administered on 09/25/19at 22:23; Start 09/25/19 at 22:00; Stop 09/26/19 at 21:59; Status DC Meropenem 1 gm/ Sodium Chloride 100 ml @ 200 mls/hr Q8HRS IV ; Start 09/25/19 at 14:00; Status Cancel Meropenem 1 gm/ Sodium Chloride 100 ml @ 200 mls/hr Q8HRS IV Last administered on 09/25/19at 11:04; Start 09/25/19 at 10:00; Stop 09/25/19 at 13:00; Status DC Meropenem 1 gm/ Sodium Chloride 100 ml @ 200 mls/hr Q12HR IV Last administered on 09/26/19at 20:55; Start 09/25/19 at 21:00 Sodium Chloride 1,000 ml @ 1,000 mls/hr 1X ONCE IV Last administered on 09/25/19at 11:06; Start 09/25/19 at 10:45; Stop 09/25/19 at 11:44; Status DC Micafungin Sodium 100 mg/Dextrose 100 ml @ 100 mls/hr Q24H IV Last administered on 09/26/19at 11:50; Start 09/25/19 at 11:00 Daptomycin 410 mg/ Sodium Chloride 50 ml @ 100 mls/hr Q24H IV Last administered on 09/26/19at 15:33; Start 09/25/19 at 14:00 Midazolam HCl (Versed) 2 mg STK-MED ONCE .ROUTE ; Start 09/25/19 at 14:47; Stop 09/25/19 at 14:48; Status DC Fentanyl Citrate (Fentanyl 2ml Vial) 100 mcg STK-MED ONCE .ROUTE ; Start 09/25/19 at 14:47; Stop 09/25/19 at 14:48; Status DC Flumazenil (Romazicon) 0.5 mg STK-MED ONCE IV ; Start 09/25/19 at 14:48; Stop 09/25/19 at 14:48; Status DC Naloxone HCl (Narcan) 0.4 mg STK-MED ONCE .ROUTE ; Start 09/25/19 at 14:48; Stop 09/25/19 at 14:48; Status DC Lidocaine HCl (Lidocaine 1% 20ml Vial) 20 ml STK-MED ONCE .ROUTE ; Start 09/25/19 at 14:48; Stop 09/25/19 at 14:48; Status DC Midazolam HCl (Versed) 2 mg 1X ONCE IV Last administered on 09/25/19at 15:28; Start 09/25/19 at 15:00; Stop 09/25/19 at 15:01; Status DC Fentanyl Citrate (Fentanyl 2ml Vial) 100 mcg 1X ONCE IV Last administered on 09/25/19at 15:28; Start 09/25/19 at 15:00; Stop 09/25/19 at 15:01; Status DC Lidocaine HCl (Lidocaine 1% 20ml Vial) 20 ml 1X ONCE INJ Last administered on 09/25/19at 15:30; Start 09/25/19 at 15:00; Stop 09/25/19 at 15:01; Status DC Sodium Chloride 1,000 ml @ 100 mls/hr Q10H IV Last administered on 09/27/19at 06:20; Start 09/25/19 at 20:00 Sodium Bicarbonate (Sodium Bicarb Adult 8.4% Syr) 50 meq 1X ONCE IV Last administered on 09/25/19at 21:47; Start 09/25/19 at 22:00; Stop 09/25/19 at 22:01; Status DC Potassium Acetate 40 meq/Magnesium Sulfate 5 meq/ Multivitamins 10 ml/Chromium/ Copper/Manganese/ Seleni/Zn 1 ml/ Insulin Human Regular 30 unit/ Total Parenteral Nutrition/Amino Acids/Dextrose/ Fat Emulsion Intravenous 1,920 ml @ 80 mls/hr TPN CONT IV Last administered on 09/26/19at 22:28; Start 09/26/19 at 22:00; Stop 09/27/19 at 21:59 Sodium Chloride 500 ml @ 500 mls/hr 1X ONCE IV Last administered on 09/27/19at 06:39; Start 09/27/19 at 06:45; Stop 09/27/19 at 07:44; Status DC Active Scripts Active Reported Bisoprolol Fumarate 5 Mg Tablet 10 Mg PO DAILY Vitals/I & O Vital Sign - Last 24 Hours 09/26/19 09/26/19 09/26/19 09/26/19 08:40 09:00 10:00 11:00 Pulse 99 97 104 Resp 18 20 20 B/P (MAP) 108/62 (77) 99/54 (69) 95/65 (75) Pulse Ox 100 100 100 O2 Delivery AVAPS ON V60 BiPAP/CPAP BiPAP/CPAP BiPAP/CPAP 09/26/19 09/26/19 09/26/19 09/26/19 11:49 12:00 12:00 12:07 Temp 98.0 98.0 Pulse 117 Resp 20 B/P (MAP) 123/56 (78) Pulse Ox 100 100 99 O2 Delivery AVAPS ON V60 BiPAP/CPAP Bi-pap Tracheal Collar 09/26/19 09/26/19 09/26/19 09/26/19 12:13 13:00 13:03 14:00 Pulse 122 115 Resp 12 24 20 20 B/P (MAP) 113/59 (77) 109/62 (78) Pulse Ox 100 100 99 100 O2 Delivery Tracheal Collar BiPAP/CPAP Room Air BiPAP/CPAP 09/26/19 09/26/19 09/26/19 09/26/19 15:00 16:00 16:00 17:00 Temp 98.0 98.0 Pulse 118 119 120 Resp 20 20 23 B/P (MAP) 111/61 (78) 112/60 (77) 107/64 (78) Pulse Ox 100 100 100 O2 Delivery BiPAP/CPAP BiPAP/CPAP Bi-pap Tracheal Collar 09/26/19 09/26/19 09/26/19 09/26/19 18:00 18:35 19:00 19:58 Pulse 130 125 Resp 26 16 33 B/P (MAP) 129/66 (87) 119/66 (83) Pulse Ox 100 92 97 96 O2 Delivery Tracheal Collar Tracheal Collar Tracheal Collar Tracheal Collar O2 Flow Rate 8.0 8.0 09/26/19 09/26/19 09/26/19 09/26/19 20:00 20:00 21:00 22:00 Temp 97.7 97.7 Pulse 121 120 135 Resp 29 30 45 B/P (MAP) 110/65 (80) 115/60 (78) 154/71 (98) Pulse Ox 97 98 91 O2 Delivery Tracheal Collar Trach Collar Tracheal Collar Tracheal Collar O2 Flow Rate 8.0 8.0 8.0 8.0 09/26/19 09/27/19 09/27/19 09/27/19 23:00 00:00 00:00 01:00 Temp 98.4 98.4 Pulse 136 132 137 Resp 36 39 43 B/P (MAP) 135/68 (90) 133/69 (90) 163/74 (103) Pulse Ox 94 93 96 O2 Delivery Tracheal Collar Tracheal Collar Trach Collar Tracheal Collar O2 Flow Rate 8.0 8.0 8.0 8.0 09/27/19 09/27/19 09/27/19 09/27/19 01:32 02:00 03:00 04:00 Pulse 141 142 Resp 45 47 B/P (MAP) 166/78 (107) 152/72 (98) Pulse Ox 99 93 97 O2 Delivery Tracheal Collar Tracheal Collar Tracheal Collar Trach Collar O2 Flow Rate 8.0 8.0 8.0 8.0 09/27/19 09/27/19 09/27/19 09/27/19 04:00 05:00 05:30 06:00 Temp 99.6 99.0 97.8 99.6 99.0 97.8 Pulse 146 144 138 Resp 47 43 43 B/P (MAP) 160/70 (100) 134/66 (88) 144/64 (90) Pulse Ox 96 95 98 O2 Delivery Tracheal Collar Tracheal Collar Tracheal Collar O2 Flow Rate 8.0 8.0 10.0 10.0 09/27/19 09/27/19 09/27/19 07:00 07:57 08:00 Temp 99.5 99.5 Pulse 148 144 Resp 46 49 B/P (MAP) 172/74 (106) 142/74 (96) Pulse Ox 98 95 O2 Delivery Tracheal Collar Trach Collar Tracheal Collar O2 Flow Rate 10.0 10.0 10.0 Intake and Output 09/26/19 09/26/19 09/27/19 15:00 23:00 07:00 Intake Total 0 ml 2549 ml 2242 ml Output Total 630 ml 730 ml 1135 ml Balance -630 ml 1819 ml 1107 ml Hemodynamically unstable?: No Is patient in severe pain?: No Is NPO status required?: No DAVIN LANDEROS MD Sep 27, 2019 08:21
[2019-09-27] MEDS: MEROPENEM 1 GM in IV NORMAL SALINE 100ML 100 ML IV SCH ×2 (09:15→22:02)
[2019-09-27] MEDS: PANTOPRAZOLE IV PUSH 40 MG VIAL. IVP SCH (09:16)
--- NOTE | 2019-09-27 09:52 | NUR ---
SS following up with discharge planning. SS reviewed pt chart and discussed with pt RN. Pt on trach shield currently and per RN, declining to wear trach cap today. Pt on IV Daptomycin, Micafungin, and Meropenem. Pt on TPN. Pt has three drains. PT/OT to work with pt today. SS will continue to follow for discharge planning.
--- NOTE | 2019-09-27 10:09 | RAD ---
VENOUS LOWER EXT BILATERAL History: Reason: Tachycardia, off thromboprophylaxis, B/L EDEMA / Spl. Instructions: / History: Comparison: None. Discussion: Multiple longitudinal and transverse high resolution real-time images of the venous system of bilateral lower extremity were obtained with color and Doppler sampling. The common femoral, superficial femoral, popliteal and proximal calf veins are all patent and demonstrate normal flow and compressibility. Normal respiratory phasicity and augmentation is present. Impression: 1. No evidence of deep vein thrombosis. Electronically signed by: Sukhdev Sadler DO (09/27/2019 10:06 AM) [id number]
--- NOTE | 2019-09-27 11:16 | PDOC ---
SURGICAL PROGRESS NOTE Subjective Pt on t tube trial, sleeping Vital Signs Vital Signs Date Time Temp Pulse Resp B/P (MAP) Pulse Ox O2 Delivery O2 Flow Rate FiO2 09/27/19 11:00 128 36 132/73 (92) 100 Tracheal Collar 10.0 09/27/19 08:00 99.5 99.5 I&O Intake and Output 09/27/19 07:00 Intake Total 4791 ml Output Total 2495 ml Balance 2296 ml Intake Oral 0 ml IV Total 4791 ml Output Urine Total 1810 ml Drainage Total 685 ml # Bowel Movements 1 General: No acute distress Abdomen: Soft, No tenderness, Other (drain c/w dark blood) Labs Laboratory Tests Test 09/25/19 11:30 09/25/19 13:20 09/25/19 18:05 09/25/19 18:30 Urine Collection Type Unknown Urine Color Yellow Urine Clarity Cloudy Urine pH 5.0 (<5.0-8.0) Urine Specific [place] 1.020 (1.000-1.030) Urine Protein 30 mg/dL (NEG-TRACE) Urine Glucose (UA) Negative mg/dL (NEG) Urine Ketones (Stick) Negative mg/dL (NEG) Urine Blood Negative (NEG) Urine Nitrite Negative (NEG) Urine Bilirubin Negative (NEG) Urine Urobilinogen Dipstick 0.2 mg/dL (0.2 mg/dL) Urine Leukocyte Esterase Small (NEG) Urine RBC 0 /HPF (0-2) Urine WBC 11-20 /HPF (0-4) Urine Squamous Epithelial Cells Mod /LPF Urine Transitional Epithelial Cells Mod /LPF Urine Amorphous Sediment Present /HPF Urine Bacteria Few /HPF (0-FEW) Urine Hyaline Casts Many /HPF Urine Granular Casts Many /HPF Urine Mucus Marked /LPF Urine Yeast Present /HPF White Blood Count 20.9 x10^3/uL (4.0-11.0) 21.2 x10^3/uL (4.0-11.0) Red Blood Count 3.23 x10^6/uL (3.50-5.40) 2.51 x10^6/uL (3.50-5.40) Hemoglobin 9.6 g/dL (12.0-15.5) 7.4 g/dL (12.0-15.5) Hematocrit 28.9 % (36.0-47.0) 22.6 % (36.0-47.0) Mean Corpuscular Volume 89 fL (79-100) 90 fL (79-100) Mean Corpuscular Hemoglobin 30 pg (25-35) 30 pg (25-35) Mean Corpuscular Hemoglobin Concent 33 g/dL (31-37) 33 g/dL (31-37) Red Cell Distribution Width 17.0 % (11.5-14.5) 17.3 % (11.5-14.5) Platelet Count 433 x10^3/uL (140-400) 310 x10^3/uL (140-400) O2 Saturation 95 % (92-99) Arterial Blood pH 7.25 (7.35-7.45) Arterial Blood pCO2 at Patient Temp 48 mmHg (35-46) Arterial Blood pO2 at Patient Temp 92 mmHg (75-108) Arterial Blood HCO3 21 mmol/L (21-28) Arterial Blood Base Excess -6 mmol/L (-3-3) FiO2 50 Test 09/25/19 18:37 09/25/19 20:45 09/26/19 00:30 09/26/19 00:45 Glucose (Fingerstick) 234 mg/dL (70-99) 320 mg/dL (70-99) O2 Saturation 97 % (92-99) Arterial Blood pH 7.27 (7.35-7.45) Arterial Blood pCO2 at Patient Temp 44 mmHg (35-46) Arterial Blood pO2 at Patient Temp 108 mmHg (75-108) Arterial Blood HCO3 20 mmol/L (21-28) Arterial Blood Base Excess -7 mmol/L (-3-3) FiO2 40 White Blood Count 19.8 x10^3/uL (4.0-11.0) Red Blood Count 3.14 x10^6/uL (3.50-5.40) Hemoglobin 9.4 g/dL (12.0-15.5) Hematocrit 28.0 % (36.0-47.0) Mean Corpuscular Volume 89 fL (79-100) Mean Corpuscular Hemoglobin 30 pg (25-35) Mean Corpuscular Hemoglobin Concent 34 g/dL (31-37) Red Cell Distribution Width 16.8 % (11.5-14.5) Platelet Count 325 x10^3/uL (140-400) Test 09/26/19 06:50 09/26/19 06:59 09/26/19 08:15 09/26/19 11:00 White Blood Count 13.8 x10^3/uL (4.0-11.0) Red Blood Count 3.03 x10^6/uL (3.50-5.40) Hemoglobin 8.8 g/dL (12.0-15.5) Hematocrit 26.9 % (36.0-47.0) Mean Corpuscular Volume 89 fL (79-100) Mean Corpuscular Hemoglobin 29 pg (25-35) Mean Corpuscular Hemoglobin Concent 33 g/dL (31-37) Red Cell Distribution Width 17.2 % (11.5-14.5) Platelet Count 311 x10^3/uL (140-400) Neutrophils (%) (Auto) 88 % (31-73) Lymphocytes (%) (Auto) 7 % (24-48) Monocytes (%) (Auto) 4 % (0-9) Eosinophils (%) (Auto) 1 % (0-3) Basophils (%) (Auto) 0 % (0-3) Neutrophils # (Auto) 12.1 x10^3/uL (1.8-7.7) Lymphocytes # (Auto) 0.9 x10^3/uL (1.0-4.8) Monocytes # (Auto) 0.6 x10^3/uL (0.0-1.1) Eosinophils # (Auto) 0.1 x10^3/uL (0.0-0.7) Basophils # (Auto) 0.0 x10^3/uL (0.0-0.2) Segmented Neutrophils % 63 % (35-66) Band Neutrophils % 25 % (0-9) Lymphocytes % 8 % (24-48) Monocytes % 4 % (0-10) Toxic Granulation Present Dohle Bodies Present Platelet Estimate Adequate (ADEQUATE) Anisocytosis Slight Sodium Level 151 mmol/L (136-145) Potassium Level 4.1 mmol/L (3.5-5.1) Chloride Level 118 mmol/L (98-107) Carbon Dioxide Level 25 mmol/L (21-32) Anion Gap 8 (6-14) Blood Urea Nitrogen 58 mg/dL (7-20) Creatinine 1.3 mg/dL (0.6-1.0) Estimated GFR (Cockcroft-Gault) 43.5 BUN/Creatinine Ratio 45 (6-20) Glucose Level 165 mg/dL (70-99) Calcium Level 9.9 mg/dL (8.5-10.1) Total Bilirubin 0.5 mg/dL (0.2-1.0) Aspartate Amino Transf (AST/SGOT) 15 U/L (15-37) Alanine Aminotransferase (ALT/SGPT) 12 U/L (14-59) Alkaline Phosphatase 95 U/L (46-116) Total Protein 5.3 g/dL (6.4-8.2) Albumin 1.5 g/dL (3.4-5.0) Albumin/Globulin Ratio 0.4 (1.0-1.7) Glucose (Fingerstick) 149 mg/dL (70-99) O2 Saturation 98 % (92-99) Arterial Blood pH 7.34 (7.35-7.45) Arterial Blood pCO2 at Patient Temp 40 mmHg (35-46) Arterial Blood pO2 at Patient Temp 126 mmHg (75-108) Arterial Blood HCO3 21 mmol/L (21-28) Arterial Blood Base Excess -5 mmol/L (-3-3) FiO2 40% bipap Stool Occult Blood Negative (NEG) Test 09/26/19 11:55 09/26/19 18:25 09/27/19 00:16 09/27/19 04:00 White Blood Count 11.8 x10^3/uL (4.0-11.0) 8.0 x10^3/uL (4.0-11.0) Red Blood Count 2.93 x10^6/uL (3.50-5.40) 2.92 x10^6/uL (3.50-5.40) Hemoglobin 8.6 g/dL (12.0-15.5) 8.6 g/dL (12.0-15.5) Hematocrit 26.0 % (36.0-47.0) 26.2 % (36.0-47.0) Mean Corpuscular Volume 89 fL (79-100) 90 fL (79-100) Mean Corpuscular Hemoglobin 29 pg (25-35) 30 pg (25-35) Mean Corpuscular Hemoglobin Concent 33 g/dL (31-37) 33 g/dL (31-37) Red Cell Distribution Width 16.8 % (11.5-14.5) 17.4 % (11.5-14.5) Platelet Count 292 x10^3/uL (140-400) 285 x10^3/uL (140-400) Glucose (Fingerstick) 203 mg/dL (70-99) 190 mg/dL (70-99) 126 mg/dL (70-99) Neutrophils (%) (Auto) 77 % (31-73) Lymphocytes (%) (Auto) 16 % (24-48) Monocytes (%) (Auto) 5 % (0-9) Eosinophils (%) (Auto) 2 % (0-3) Basophils (%) (Auto) 0 % (0-3) Neutrophils # (Auto) 6.1 x10^3/uL (1.8-7.7) Lymphocytes # (Auto) 1.3 x10^3/uL (1.0-4.8) Monocytes # (Auto) 0.4 x10^3/uL (0.0-1.1) Eosinophils # (Auto) 0.2 x10^3/uL (0.0-0.7) Basophils # (Auto) 0.0 x10^3/uL (0.0-0.2) Sodium Level 150 mmol/L (136-145) Potassium Level 4.2 mmol/L (3.5-5.1) Chloride Level 118 mmol/L (98-107) Carbon Dioxide Level 23 mmol/L (21-32) Anion Gap 9 (6-14) Blood Urea Nitrogen 48 mg/dL (7-20) Creatinine 1.1 mg/dL (0.6-1.0) Estimated GFR (Cockcroft-Gault) 52.8 Glucose Level 165 mg/dL (70-99) Calcium Level 10.3 mg/dL (8.5-10.1) Test 09/27/19 05:24 09/27/19 06:22 O2 Saturation 90 % (92-99) Arterial Blood pH 7.36 (7.35-7.45) Arterial Blood pCO2 at Patient Temp 36 mmHg (35-46) Arterial Blood pO2 at Patient Temp 63 mmHg (75-108) Arterial Blood HCO3 20 mmol/L (21-28) Arterial Blood Base Excess -5 mmol/L (-3-3) FiO2 33 Glucose (Fingerstick) 131 mg/dL (70-99) Laboratory Tests Test 09/26/19 11:55 09/26/19 18:25 09/27/19 00:16 09/27/19 04:00 White Blood Count 11.8 x10^3/uL (4.0-11.0) 8.0 x10^3/uL (4.0-11.0) Red Blood Count 2.93 x10^6/uL (3.50-5.40) 2.92 x10^6/uL (3.50-5.40) Hemoglobin 8.6 g/dL (12.0-15.5) 8.6 g/dL (12.0-15.5) Hematocrit 26.0 % (36.0-47.0) 26.2 % (36.0-47.0) Mean Corpuscular Volume 89 fL (79-100) 90 fL (79-100) Mean Corpuscular Hemoglobin 29 pg (25-35) 30 pg (25-35) Mean Corpuscular Hemoglobin Concent 33 g/dL (31-37) 33 g/dL (31-37) Red Cell Distribution Width 16.8 % (11.5-14.5) 17.4 % (11.5-14.5) Platelet Count 292 x10^3/uL (140-400) 285 x10^3/uL (140-400) Glucose (Fingerstick) 203 mg/dL (70-99) 190 mg/dL (70-99) 126 mg/dL (70-99) Neutrophils (%) (Auto) 77 % (31-73) Lymphocytes (%) (Auto) 16 % (24-48) Monocytes (%) (Auto) 5 % (0-9) Eosinophils (%) (Auto) 2 % (0-3) Basophils (%) (Auto) 0 % (0-3) Neutrophils # (Auto) 6.1 x10^3/uL (1.8-7.7) Lymphocytes # (Auto) 1.3 x10^3/uL (1.0-4.8) Monocytes # (Auto) 0.4 x10^3/uL (0.0-1.1) Eosinophils # (Auto) 0.2 x10^3/uL (0.0-0.7) Basophils # (Auto) 0.0 x10^3/uL (0.0-0.2) Sodium Level 150 mmol/L (136-145) Potassium Level 4.2 mmol/L (3.5-5.1) Chloride Level 118 mmol/L (98-107) Carbon Dioxide Level 23 mmol/L (21-32) Anion Gap 9 (6-14) Blood Urea Nitrogen 48 mg/dL (7-20) Creatinine 1.1 mg/dL (0.6-1.0) Estimated GFR (Cockcroft-Gault) 52.8 Glucose Level 165 mg/dL (70-99) Calcium Level 10.3 mg/dL (8.5-10.1) Test 09/27/19 05:24 09/27/19 06:22 O2 Saturation 90 % (92-99) Arterial Blood pH 7.36 (7.35-7.45) Arterial Blood pCO2 at Patient Temp 36 mmHg (35-46) Arterial Blood pO2 at Patient Temp 63 mmHg (75-108) Arterial Blood HCO3 20 mmol/L (21-28) Arterial Blood Base Excess -5 mmol/L (-3-3) FiO2 33 Glucose (Fingerstick) 131 mg/dL (70-99) Problem List Problems Medical Problems: (1) Acute pancreatitis Status: Acute (2) Cholelithiasis Status: Acute Assessment/Plan appears somewhat improved, but shelter progress has been slow If not continued improved, may benefit from return to OR for definitive surgery, although high morbidity and even mortality with that. Ideally, a few weeks still with intention of cystgastrostomy and cholecystectomy. Justicifation of Admission Dx: Justifications for Admission: Justification of Admission Dx: Yes DAVON SIMMS MD Sep 27, 2019 11:16
--- NOTE | 2019-09-27 11:19 | PDOC ---
PULMONARY PROGRESS NOTES Subjective Patient intubated on 07/10 , s/p trach 07/24, transferred back to ICU 09/22 for syncope with collapse developed anemia, blood drainage from RLQ abdomen drain site, and surrounding firmness / developed septic shock 09/24 from abdomen source, required levo 09/24 s/p 3 new drains 09/24 with brown color drainage was place on AVAPS 09/24 post On low dose levo for hypotension, now off. received aggressive IVF, improving renal function Again bleeding from KAYLIN drains Vitals Vital Signs Date Time Temp Pulse Resp B/P (MAP) Pulse Ox O2 Delivery O2 Flow Rate FiO2 09/27/19 11:00 128 36 132/73 (92) 100 Tracheal Collar 10.0 09/27/19 08:00 99.5 99.5 General: Alert, No acute distress Lungs: Other (diminshed in bases, Rhonci in LLL) Cardiovascular: S1, S2 Abdomen: Soft, Non-tender, Other (bleeding from Sx. site RLQ and firmness) Extremities: Other (+1 BLE edema) Skin: Warm, Dry Labs Laboratory Tests Test 09/25/19 11:30 09/25/19 13:20 09/25/19 18:05 09/25/19 18:30 Urine Collection Type Unknown Urine Color Yellow Urine Clarity Cloudy Urine pH 5.0 (<5.0-8.0) Urine Specific [place] 1.020 (1.000-1.030) Urine Protein 30 mg/dL (NEG-TRACE) Urine Glucose (UA) Negative mg/dL (NEG) Urine Ketones (Stick) Negative mg/dL (NEG) Urine Blood Negative (NEG) Urine Nitrite Negative (NEG) Urine Bilirubin Negative (NEG) Urine Urobilinogen Dipstick 0.2 mg/dL (0.2 mg/dL) Urine Leukocyte Esterase Small (NEG) Urine RBC 0 /HPF (0-2) Urine WBC 11-20 /HPF (0-4) Urine Squamous Epithelial Cells Mod /LPF Urine Transitional Epithelial Cells Mod /LPF Urine Amorphous Sediment Present /HPF Urine Bacteria Few /HPF (0-FEW) Urine Hyaline Casts Many /HPF Urine Granular Casts Many /HPF Urine Mucus Marked /LPF Urine Yeast Present /HPF White Blood Count 20.9 x10^3/uL (4.0-11.0) 21.2 x10^3/uL (4.0-11.0) Red Blood Count 3.23 x10^6/uL (3.50-5.40) 2.51 x10^6/uL (3.50-5.40) Hemoglobin 9.6 g/dL (12.0-15.5) 7.4 g/dL (12.0-15.5) Hematocrit 28.9 % (36.0-47.0) 22.6 % (36.0-47.0) Mean Corpuscular Volume 89 fL (79-100) 90 fL (79-100) Mean Corpuscular Hemoglobin 30 pg (25-35) 30 pg (25-35) Mean Corpuscular Hemoglobin Concent 33 g/dL (31-37) 33 g/dL (31-37) Red Cell Distribution Width 17.0 % (11.5-14.5) 17.3 % (11.5-14.5) Platelet Count 433 x10^3/uL (140-400) 310 x10^3/uL (140-400) O2 Saturation 95 % (92-99) Arterial Blood pH 7.25 (7.35-7.45) Arterial Blood pCO2 at Patient Temp 48 mmHg (35-46) Arterial Blood pO2 at Patient Temp 92 mmHg (75-108) Arterial Blood HCO3 21 mmol/L (21-28) Arterial Blood Base Excess -6 mmol/L (-3-3) FiO2 50 Test 09/25/19 18:37 09/25/19 20:45 09/26/19 00:30 09/26/19 00:45 Glucose (Fingerstick) 234 mg/dL (70-99) 320 mg/dL (70-99) O2 Saturation 97 % (92-99) Arterial Blood pH 7.27 (7.35-7.45) Arterial Blood pCO2 at Patient Temp 44 mmHg (35-46) Arterial Blood pO2 at Patient Temp 108 mmHg (75-108) Arterial Blood HCO3 20 mmol/L (21-28) Arterial Blood Base Excess -7 mmol/L (-3-3) FiO2 40 White Blood Count 19.8 x10^3/uL (4.0-11.0) Red Blood Count 3.14 x10^6/uL (3.50-5.40) Hemoglobin 9.4 g/dL (12.0-15.5) Hematocrit 28.0 % (36.0-47.0) Mean Corpuscular Volume 89 fL (79-100) Mean Corpuscular Hemoglobin 30 pg (25-35) Mean Corpuscular Hemoglobin Concent 34 g/dL (31-37) Red Cell Distribution Width 16.8 % (11.5-14.5) Platelet Count 325 x10^3/uL (140-400) Test 09/26/19 06:50 09/26/19 06:59 09/26/19 08:15 09/26/19 11:00 White Blood Count 13.8 x10^3/uL (4.0-11.0) Red Blood Count 3.03 x10^6/uL (3.50-5.40) Hemoglobin 8.8 g/dL (12.0-15.5) Hematocrit 26.9 % (36.0-47.0) Mean Corpuscular Volume 89 fL (79-100) Mean Corpuscular Hemoglobin 29 pg (25-35) Mean Corpuscular Hemoglobin Concent 33 g/dL (31-37) Red Cell Distribution Width 17.2 % (11.5-14.5) Platelet Count 311 x10^3/uL (140-400) Neutrophils (%) (Auto) 88 % (31-73) Lymphocytes (%) (Auto) 7 % (24-48) Monocytes (%) (Auto) 4 % (0-9) Eosinophils (%) (Auto) 1 % (0-3) Basophils (%) (Auto) 0 % (0-3) Neutrophils # (Auto) 12.1 x10^3/uL (1.8-7.7) Lymphocytes # (Auto) 0.9 x10^3/uL (1.0-4.8) Monocytes # (Auto) 0.6 x10^3/uL (0.0-1.1) Eosinophils # (Auto) 0.1 x10^3/uL (0.0-0.7) Basophils # (Auto) 0.0 x10^3/uL (0.0-0.2) Segmented Neutrophils % 63 % (35-66) Band Neutrophils % 25 % (0-9) Lymphocytes % 8 % (24-48) Monocytes % 4 % (0-10) Toxic Granulation Present Dohle Bodies Present Platelet Estimate Adequate (ADEQUATE) Anisocytosis Slight Sodium Level 151 mmol/L (136-145) Potassium Level 4.1 mmol/L (3.5-5.1) Chloride Level 118 mmol/L (98-107) Carbon Dioxide Level 25 mmol/L (21-32) Anion Gap 8 (6-14) Blood Urea Nitrogen 58 mg/dL (7-20) Creatinine 1.3 mg/dL (0.6-1.0) Estimated GFR (Cockcroft-Gault) 43.5 BUN/Creatinine Ratio 45 (6-20) Glucose Level 165 mg/dL (70-99) Calcium Level 9.9 mg/dL (8.5-10.1) Total Bilirubin 0.5 mg/dL (0.2-1.0) Aspartate Amino Transf (AST/SGOT) 15 U/L (15-37) Alanine Aminotransferase (ALT/SGPT) 12 U/L (14-59) Alkaline Phosphatase 95 U/L (46-116) Total Protein 5.3 g/dL (6.4-8.2) Albumin 1.5 g/dL (3.4-5.0) Albumin/Globulin Ratio 0.4 (1.0-1.7) Glucose (Fingerstick) 149 mg/dL (70-99) O2 Saturation 98 % (92-99) Arterial Blood pH 7.34 (7.35-7.45) Arterial Blood pCO2 at Patient Temp 40 mmHg (35-46) Arterial Blood pO2 at Patient Temp 126 mmHg (75-108) Arterial Blood HCO3 21 mmol/L (21-28) Arterial Blood Base Excess -5 mmol/L (-3-3) FiO2 40% bipap Stool Occult Blood Negative (NEG) Test 09/26/19 11:55 09/26/19 18:25 09/27/19 00:16 09/27/19 04:00 White Blood Count 11.8 x10^3/uL (4.0-11.0) 8.0 x10^3/uL (4.0-11.0) Red Blood Count 2.93 x10^6/uL (3.50-5.40) 2.92 x10^6/uL (3.50-5.40) Hemoglobin 8.6 g/dL (12.0-15.5) 8.6 g/dL (12.0-15.5) Hematocrit 26.0 % (36.0-47.0) 26.2 % (36.0-47.0) Mean Corpuscular Volume 89 fL (79-100) 90 fL (79-100) Mean Corpuscular Hemoglobin 29 pg (25-35) 30 pg (25-35) Mean Corpuscular Hemoglobin Concent 33 g/dL (31-37) 33 g/dL (31-37) Red Cell Distribution Width 16.8 % (11.5-14.5) 17.4 % (11.5-14.5) Platelet Count 292 x10^3/uL (140-400) 285 x10^3/uL (140-400) Glucose (Fingerstick) 203 mg/dL (70-99) 190 mg/dL (70-99) 126 mg/dL (70-99) Neutrophils (%) (Auto) 77 % (31-73) Lymphocytes (%) (Auto) 16 % (24-48) Monocytes (%) (Auto) 5 % (0-9) Eosinophils (%) (Auto) 2 % (0-3) Basophils (%) (Auto) 0 % (0-3) Neutrophils # (Auto) 6.1 x10^3/uL (1.8-7.7) Lymphocytes # (Auto) 1.3 x10^3/uL (1.0-4.8) Monocytes # (Auto) 0.4 x10^3/uL (0.0-1.1) Eosinophils # (Auto) 0.2 x10^3/uL (0.0-0.7) Basophils # (Auto) 0.0 x10^3/uL (0.0-0.2) Sodium Level 150 mmol/L (136-145) Potassium Level 4.2 mmol/L (3.5-5.1) Chloride Level 118 mmol/L (98-107) Carbon Dioxide Level 23 mmol/L (21-32) Anion Gap 9 (6-14) Blood Urea Nitrogen 48 mg/dL (7-20) Creatinine 1.1 mg/dL (0.6-1.0) Estimated GFR (Cockcroft-Gault) 52.8 Glucose Level 165 mg/dL (70-99) Calcium Level 10.3 mg/dL (8.5-10.1) Test 09/27/19 05:24 09/27/19 06:22 O2 Saturation 90 % (92-99) Arterial Blood pH 7.36 (7.35-7.45) Arterial Blood pCO2 at Patient Temp 36 mmHg (35-46) Arterial Blood pO2 at Patient Temp 63 mmHg (75-108) Arterial Blood HCO3 20 mmol/L (21-28) Arterial Blood Base Excess -5 mmol/L (-3-3) FiO2 33 Glucose (Fingerstick) 131 mg/dL (70-99) Laboratory Tests Test 09/26/19 11:55 09/26/19 18:25 09/27/19 00:16 09/27/19 04:00 White Blood Count 11.8 x10^3/uL (4.0-11.0) 8.0 x10^3/uL (4.0-11.0) Red Blood Count 2.93 x10^6/uL (3.50-5.40) 2.92 x10^6/uL (3.50-5.40) Hemoglobin 8.6 g/dL (12.0-15.5) 8.6 g/dL (12.0-15.5) Hematocrit 26.0 % (36.0-47.0) 26.2 % (36.0-47.0) Mean Corpuscular Volume 89 fL (79-100) 90 fL (79-100) Mean Corpuscular Hemoglobin 29 pg (25-35) 30 pg (25-35) Mean Corpuscular Hemoglobin Concent 33 g/dL (31-37) 33 g/dL (31-37) Red Cell Distribution Width 16.8 % (11.5-14.5) 17.4 % (11.5-14.5) Platelet Count 292 x10^3/uL (140-400) 285 x10^3/uL (140-400) Glucose (Fingerstick) 203 mg/dL (70-99) 190 mg/dL (70-99) 126 mg/dL (70-99) Neutrophils (%) (Auto) 77 % (31-73) Lymphocytes (%) (Auto) 16 % (24-48) Monocytes (%) (Auto) 5 % (0-9) Eosinophils (%) (Auto) 2 % (0-3) Basophils (%) (Auto) 0 % (0-3) Neutrophils # (Auto) 6.1 x10^3/uL (1.8-7.7) Lymphocytes # (Auto) 1.3 x10^3/uL (1.0-4.8) Monocytes # (Auto) 0.4 x10^3/uL (0.0-1.1) Eosinophils # (Auto) 0.2 x10^3/uL (0.0-0.7) Basophils # (Auto) 0.0 x10^3/uL (0.0-0.2) Sodium Level 150 mmol/L (136-145) Potassium Level 4.2 mmol/L (3.5-5.1) Chloride Level 118 mmol/L (98-107) Carbon Dioxide Level 23 mmol/L (21-32) Anion Gap 9 (6-14) Blood Urea Nitrogen 48 mg/dL (7-20) Creatinine 1.1 mg/dL (0.6-1.0) Estimated GFR (Cockcroft-Gault) 52.8 Glucose Level 165 mg/dL (70-99) Calcium Level 10.3 mg/dL (8.5-10.1) Test 09/27/19 05:24 09/27/19 06:22 O2 Saturation 90 % (92-99) Arterial Blood pH 7.36 (7.35-7.45) Arterial Blood pCO2 at Patient Temp 36 mmHg (35-46) Arterial Blood pO2 at Patient Temp 63 mmHg (75-108) Arterial Blood HCO3 20 mmol/L (21-28) Arterial Blood Base Excess -5 mmol/L (-3-3) FiO2 33 Glucose (Fingerstick) 131 mg/dL (70-99) Medications Active Scripts Medications Dose Route/Sig Max Daily Dose Days Date Category Bisoprolol Fumarate 5 Mg Tablet 10 Mg PO DAILY 07/04/19 Reported Comments CXR 09/24/2019 IMPRESSION: Lines and tubes as described above. Left greater than right lower lobe opacities most likely pulmonary edema and left greater than right mild pleural effusions are stable. Superimposed left lower lobe pneumonia is not excluded. ct abdomen /pelvis 09/23 1. Removal of the percutaneous pigtail drainage catheters since the prior exam. Sequela of pancreatitis with extensive pseudocysts again demonstrated, the right-sided collections are slightly larger since the prior exam, the left-sided collections are stable. See above. 2. Moderate to large left pleural effusion with atelectasis and collapse of most of the left lower lobe, stable. Small right pleural effusion is stable. 3. Gallstone. Impression . IMPRESSION: 1. Acute hypoxemic respiratory failure secondary to ARDS status post trach, developed anemia 09/24, blood drainage from RLQ abdomen drain site, and surrounding firmness / developed septic shock 09/24 from abdomen source, required levo /7 s/p 3 new drains 09/24 with brown color drainage,was placed on AVAPS 09/24 post procedure after receiving narcotics. back on TS was On low dose levo for hypotension, now off. received aggressive IVF, improvin g renal function Bloody drainage again from KAYLIN drains today. increase HR 2. Gallstone pancreatitis, now with ongoing bleeding from prior drain. Anemic. s/p Tx 4 units, . 3. septic shock, recurrent 09/24, source abdomen. , off levo now, 4. Acute kidney injury-, Off HD--renal function decling. suspect JUANA on CKD due to hypotension , improved now 5. Acute gallstone pancreatitis. 6. Hypoalbuminemia. 7. Moderate persistent effusions, s/p left thora 08/29, reaccumulation of left effusion. O2 requirement not changed. 8. New Fever- ,hypotension. suspect recurrent sepsis/ likely pancreatic source. Per ID, per surgery-- 9. Chronic anemia-- ongoing / s/p PRBC 10. Covid 19 testing negative 11. Moderate to large ascites-S/P paracentisis 12.S/P paracentisis with 4 liters removed on 08/03/19 13. S/P IR drain placement on 08/26/2019, removal 14. Depression/Anxiety 1 Plan . 1. back on trach shield-- PMV/capping as tolerated/ prn suction. 2. Follow all cultures 3. Follow surgery recs-- Acute pancreatitis with persistent necrosis ---- 08/14 status post KAYLIN drain placement + C paropsilosis; 08/23 + yeast & high amylase; s/p additional drains on 08/25, removal of drains and now increase pseudocyst and increase fluid collection. likely infected fluid/ sepsis. Initiated BS abx.follow surgery rec 4. Follow ID recs for ABX-- 5. Follow nephrology recs --- 6. Continue TPN 7. monitor HGB, 4 units since 09/23 8. hold off on thoracentesis . effusion small to moderate , monitor for now 10. s/p thoracentesis, 08/29, 3 litres removed 11. d/w IR in detail DVT/GI PPX: / protonix--- holding lovenox 2/2 anemia PT/OT D/W VINAYAK MOSLEY MD Sep 27, 2019 11:19
--- NOTE | 2019-09-27 11:41 | PDOC ---
Subjective: Subjective: Mother present - says she's doing better today, has been resting. She really likes the nursing staff - mentions Echo has taken such good care of her daughter. Additionally says she had a good conversation with Dr. Servin - says [place] is a miracle. Objective: Objective: D/w nursing, reviewed chart. Vital Signs: Vital Signs Date Time Temp Pulse Resp B/P (MAP) Pulse Ox O2 Delivery O2 Flow Rate FiO2 09/27/19 11:00 128 36 132/73 (92) 100 Tracheal Collar 10.0 09/27/19 08:00 99.5 99.5 Labs: Laboratory Tests Test 09/26/19 11:55 09/26/19 18:25 09/27/19 00:16 09/27/19 04:00 White Blood Count 11.8 x10^3/uL 8.0 x10^3/uL Red Blood Count 2.93 x10^6/uL 2.92 x10^6/uL Hemoglobin 8.6 g/dL 8.6 g/dL Hematocrit 26.0 % 26.2 % Mean Corpuscular Volume 89 fL 90 fL Mean Corpuscular Hemoglobin 29 pg 30 pg Mean Corpuscular Hemoglobin Concent 33 g/dL 33 g/dL Red Cell Distribution Width 16.8 % 17.4 % Platelet Count 292 x10^3/uL 285 x10^3/uL Glucose (Fingerstick) 203 mg/dL 190 mg/dL 126 mg/dL Neutrophils (%) (Auto) 77 % Lymphocytes (%) (Auto) 16 % Monocytes (%) (Auto) 5 % Eosinophils (%) (Auto) 2 % Basophils (%) (Auto) 0 % Neutrophils # (Auto) 6.1 x10^3/uL Lymphocytes # (Auto) 1.3 x10^3/uL Monocytes # (Auto) 0.4 x10^3/uL Eosinophils # (Auto) 0.2 x10^3/uL Basophils # (Auto) 0.0 x10^3/uL Sodium Level 150 mmol/L Potassium Level 4.2 mmol/L Chloride Level 118 mmol/L Carbon Dioxide Level 23 mmol/L Anion Gap 9 Blood Urea Nitrogen 48 mg/dL Creatinine 1.1 mg/dL Estimated GFR (Cockcroft-Gault) 52.8 Glucose Level 165 mg/dL Calcium Level 10.3 mg/dL Test 09/27/19 05:24 09/27/19 06:22 O2 Saturation 90 % Arterial Blood pH 7.36 Arterial Blood pCO2 at Patient Temp 36 mmHg Arterial Blood pO2 at Patient Temp 63 mmHg Arterial Blood HCO3 20 mmol/L Arterial Blood Base Excess -5 mmol/L FiO2 33 Glucose (Fingerstick) 131 mg/dL ORDERED: ANAER/AEROB/GS COMMENTS: ABDOMINAL ABSCESS Procedure Result GRAM STAIN Final Final PE: GEN: chronically ill though looks better today LUNGS: trach collar, tachypneic HEART: tachycardic ABD: drains w/ dark red/brown output NEURO/PSYCH: drowsy A/P: Pancreatitis, MOSF Anemia (stable), s/p IR drain replacement 09/24 -- Supportive care. Justicifation of Admission Dx: Justifications for Admission: Justification of Admission Dx: Yes CYNDEE FALCON Sep 27, 2019 11:41
[2019-09-27] MEDS: MICAFUNGIN 100 MG in IV DEXTROSE 5% 100ML 100 ML IV SCH (12:02)
[2019-09-27] MEDS: TPN PER PHARMACY MC PRN (12:43)
--- NOTE | 2019-09-27 12:43 | NUR ---
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, 8 inches Weight: 76.8 kg Current diet: NPO LABS: Sodium: 150 Potassium: 4.2 Chloride: 118 Calcium: 10.3 Corrected Calcium: 12.30 Magnesium: 2.4 CO2: 23 SCr: 1.1 Glucose: 126-165 Albumin: 1.5 AST: 15 ALT: 12 TPN FORMULA: TPN TYPE: Central Continuous AMINO ACIDS: 75 gm DEXTROSE: 250 gm LIPIDS: 20 gm POTASSIUM ACETATE: 40 mEq MAGNESIUM: 5 mEq INSULIN: 30 units MULTIPLE VITAMIN: 10 ml TRACE ELEMENTS: 1 ml(s) TPN PLAN: Na trending down- cont current TPN. BG labile- will leave insulin as is for now. . -No labs ordered as patient stable. R: Continue same TPN formula. Will monitor electrolytes, glucose, and tolerance to TPN. MIKAYLA CHU [facility], 09/27/19 [id number]
[2019-09-27] MEDS: DAPTOmycin (GENERIC) IVPB 410 MG in IV NORMAL SALINE 50ML 50 ML IV SCH (13:33)
--- NOTE | 2019-09-27 14:52 | NUR ---
RN and PT/OT assisted patient with sitting on side of bed. Patient able to sit up with assistance for 10 min. Tolerated well. Patient's mother sat in room for 1+ hour. Patient's anxiety under control today. RN worked with patient on ROM exercises, deep breathing and importance of coughing.
[2019-09-27] MEDS ORDERED: AMINO ACID IV SCH ×8 (22:00)
[2019-09-27] MEDS ORDERED: TOTAL PARENTERAL NUTRITION IV SCH ×8 (22:00)
[2019-09-27] MEDS ORDERED: [UNRECOGNIZED DRUG - OTHER] IV SCH ×8 (22:00)
[2019-09-27] MEDS ORDERED: DEXTROSE 70% IV SCH ×8 (22:00)
[2019-09-28] VITALS (26 sets, daily range): BP systolic 127–207; BP diastolic 64–91
[2019-09-28] MEDS: fentaNYL PF VIAL 100 MCG/2 ML VIAL IVP PRN ×5 (02:06→22:51)
[2019-09-28] MEDS: IV NORMAL SALINE 1000ML BAG 1,000 ML IV SCH (05:11)
[2019-09-28] MEDS: INSULIN LISPRO 300 UNITS/3 ML VIAL. SQ SCH ×4 (05:56→18:00)
[2019-09-28 06:12] LABS: BASO % 0 % (0-3); EOS # 0.1 x10^3/uL (0.0-0.7); EOS % 2 % (0-3); HEMOGLOBIN 7.8 g/dL (12.0-15.5); LYMPH # 1.3 x10^3/uL (1.0-4.8); LYMPH % 20 % (24-48); MEAN CORPUSCULAR HEMOGLOBIN 29 pg (25-35); MEAN CORPUSCULAR HGB CONC 33 g/dL (31-37); MEAN CORPUSCULAR VOLUME 90 fL (79-100); MONO # 0.5 x10^3/uL (0.0-1.1); MONO % 7 % (0-9); NEUT # 4.8 x10^3/uL (1.8-7.7); NEUT % 71 % (31-73); PLATELET COUNT 279 x10^3/uL (140-400); RED BLOOD COUNT 2.67 x10^6/uL (3.50-5.40); WHITE BLOOD COUNT 6.8 x10^3/uL (4.0-11.0)
[2019-09-28 06:18] LABS: GFR 58.9; POTASSIUM 3.9 mmol/L (3.5-5.1)
--- NOTE | 2019-09-28 07:23 | PDOC ---
PROGRESS NOTES Chief Complaint Chief Complaint A/P: Acute hypoxic Respiratory failure requiring mechanical ventilation (now extubated for several days but still with tracheostomy) Tracheostomy bilateral pleural effusions/pulm edema Sepsis Severe Acute gallstone pancreatitis (not a surgical candidate at this time) with necrosis Acute kidney failure now requiring dialysis Salpingitis Gallstones (Calculus of gallbladder with acute cholecystitis without obstruction) HTN Leukocytosis Hypoxia Uterine fibroid Intractable pain Intractable nausea Covid 19 negative. Acute on chronic anemia EEG: No seizure activityFever - better currently - intermittent could be from underlying pancreatitis blood cults 08/21 - neg so far ? Ileus with vomiting Abd distention - U/S and CT reviewed s/p 0.4 L of opaque, debris-containing ascites was removed 08/23 Acute pancreatitis with persistent necrosis - 08/14 status post KAYLIN drain placement + C paropsilosis. s/p additional drains Anemia - S/p PRBCs Cholelithiasis with thickening of the gallbladder wall. Leucocytosis improving JUANA, hyperkalemia, Metabolic acidosis off dialysis Acute hypoxic resp failure ,bilateral pleural effusion and atelectasis hypocalcemia Prediabetes HTN s/p trach ESRD on HD Hyperglycemia FEN - PPX - SCDs, off lovenox currently FULL CODE Dispo - ICU, critically ill CC time 49 minutes History of Present Illness History of Present Illness 09/25: IR placed drain on 09/24. 4u PRBC after Hb drop. Hb 8.8 today. Off Levophed this morning. T-max 100.3. Much more lethargic today. CXR with left sided dif fuse infiltrates. 09/26: Tachycardic overnight into the 140s. NGT clamped. On BIPAP currently. Drains with serosanguinous discharge. WBC 8, Tmax 99.6F. Seen on trach shield in ICU. Hypertensive and tachycardic. Labs stable. blood stained drainage from drains. Afebrile. 09/23/2019 Patient seen and examined on telemetry floor today This morning I had a couple of discussions with case management The issue is the patient will not wear her trach cap Without that she cannot advance her diet and is currently supposed to be on honey thick liquids I was going to talk to the patient about wearing her trach But when I arrived to the room she was lying on the floor with several nurses and therapist around Apparently she did walk to the end of the meyer then back and then collapsed onto the floor She had a bowel movement when this all happened Appears to be critically ill again Very shaky tremulous anxious has a stare in her eyes We got her back in bed I am extremely concerned about her long-term prognosis again 09/22/2019 Patient seen and examined in the ICU She remains critically ill is is extremely weak Chart reviewed Discussed with RN We decided to try some Prozac as she does seem depressed On IV TPN Still has NG tube 09/21/2019 Patient seen and examined in the ICU She remains critically ill We have been trying to hold off on her Ativan for the past 24 hours She is a little more awake but shaky and agitated and anxious seems depressed Discussed with RN Chart reviewed 09/20/2019 Patient seen and examined in the ICU She is a little more alert today but still quite ill Appears clammy and pale and depressed/anxious Discussed with RN Chart reviewed 09/19/2019 Patient seen and examined in the ICU She appears extremely ill She is tachypneic at 35 respirations per minute and tachycardic at 132 bpm She is extremely encephalopathic and shaky She appears clammy Chart reviewed Discussed with RN Prognosis extremely guarded at best 09/18/2019 Patient still in ICU Resting with no apparent distress Chart reviewed 09/17/2019 Patient seen and examined in the ICU She is wiping her face with a cough Discussed with RN Chart reviewed We hope to get her out of the ICU later today if possible 09/16/2019 Patient seen and examined in the ICU once again She is back on NG suction On IV Zosyn Has IV TPN Sedated with Precedex but anxious still Appears somewhat clammy and pale Chart reviewed Discussed with RN She remains critically ill 09/15/2019 Patient seen and examined in the ICU She has an NG that is clamped we are hoping to start some clear liquids but she looks quite ill She is on IV TPN Meropenem changed to IV Zosyn (agree) She has Lind to bedside drainage She is semi-sedated with Precedex Chart reviewed Discussed with RN She remains critically ill Seen bedside. Hb 8. She was just a bit hypoxic, had a mucous plug suctioned. Able to vocalize well with speaking valve, tells me we are being very hard on he r and she would like to be drugged back to sleep. She wants to wake up and feel better. On trach shield, T max 100.4. afebrile this a.m. 09/13/2019 Patient seen and examined in the ICU She is up in the chair very frail trying to talk a little shaky Discussed with RN Chart reviewed 09/12/2019 Patient seen and examined in the ICU Patient up in the chair Having a severe coughing episode with a lot of phlegm coming out of her tracheostomy Discussed with RN Discussed with physical therapy Chart reviewed 09/10,. feels well, has been out of room in wheelchair no complaint, still weak, some with not wanting to wear her valve on trach cont other, may be able to work with speech tomorrow, videoswallow OK to try, 09/09, anxiety is up today, she dislikes the valve still, shower and outside today . 09/08 she doesnt want to wear her passy-fantasma valve, discussed str and plan with her. speech following, needs swallow study, but needs to wear her valve longer, cont current able to walk some, walker 09/07 stronger, better, we discussed better oral care she would like to try swallow study, wants to try to eat, speech is following 09/07/2019 She remains in the ICU sitting up and working with OT, getting better if limit pain meds, may do better off the vent, Nurses trying to suction her, that is also improved, Chart reviewed 09/06/2019 Patient seen and examined in the ICU She had an episode yesterday of tachycardia and severe agitation we gave her some Ativan After that she seemed to have stroke symptoms but now that the Ativan has wore off her stroke symptoms have resolved She is on IV meropenem and daptomycin and micafungin Chart reviewed Discussed with RN Patient is still critically ill BRIEF OPERATIVE NOTE Pre-Op Diagnosis Pancreatitis with pseudocysts, suspected infection Post-Op Diagnosis same Procedure Performed CT abdominal Drains x 3 Surgeon Tesfaye Anesthesia Type: Conscious Sedation Findings 3 abdominal drains, 14F, with turbid pancreatic fluid and necrotic debris in each. Complications No immediate 08/26: Patient today somewhat restless and having bilious secretions from ET tube, imaging studies ordered, discussed with [facility] consultant. Pretty poor prognosis, hopef ilan is not a fistula, poor surgical candidate. 08/27: Imaging with no acute events, she seems more stable today compared to . Encouraged as much activity as possible patient at high risk for severe depression. Vitals Vitals Vital Signs Date Time Temp Pulse Resp B/P (MAP) Pulse Ox O2 Delivery O2 Flow Rate FiO2 09/28/19 07:00 126 28 169/78 (108) 100 Tracheal Collar 10.0 09/28/19 04:00 97.8 97.8 Physical Exam Physical Exam GENERAL:lethargic, arousable though extremely weak HEENT: NGT in place. 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 DRIVER: Lethargic LUE-PICC (09/15) without signs of complications General: No acute distress Heart: Regular rate, Normal S1, Normal S2, No murmurs, Gallops Lungs: Other (diminshed in bases, Rhonci in LLL) Abdomen: Soft, No tenderness, Other (drain c/w dark blood) Extremities: No clubbing, No cyanosis, No edema, Normal pulses, No tenderness/swelling Skin: Other (warm, dry) Labs LABS Laboratory Tests Test 09/27/19 12:16 09/27/19 18:14 09/27/19 23:54 09/28/19 05:50 Glucose (Fingerstick) 140 mg/dL (70-99) 158 mg/dL (70-99) 116 mg/dL (70-99) White Blood Count 6.8 x10^3/uL (4.0-11.0) Red Blood Count 2.67 x10^6/uL (3.50-5.40) Hemoglobin 7.8 g/dL (12.0-15.5) Hematocrit 24.0 % (36.0-47.0) Mean Corpuscular Volume 90 fL (79-100) Mean Corpuscular Hemoglobin 29 pg (25-35) Mean Corpuscular Hemoglobin Concent 33 g/dL (31-37) Red Cell Distribution Width 18.0 % (11.5-14.5) Platelet Count 279 x10^3/uL (140-400) Neutrophils (%) (Auto) 71 % (31-73) Lymphocytes (%) (Auto) 20 % (24-48) Monocytes (%) (Auto) 7 % (0-9) Eosinophils (%) (Auto) 2 % (0-3) Basophils (%) (Auto) 0 % (0-3) Neutrophils # (Auto) 4.8 x10^3/uL (1.8-7.7) Lymphocytes # (Auto) 1.3 x10^3/uL (1.0-4.8) Monocytes # (Auto) 0.5 x10^3/uL (0.0-1.1) Eosinophils # (Auto) 0.1 x10^3/uL (0.0-0.7) Basophils # (Auto) 0.0 x10^3/uL (0.0-0.2) Sodium Level 147 mmol/L (136-145) Potassium Level 3.9 mmol/L (3.5-5.1) Chloride Level 117 mmol/L (98-107) Carbon Dioxide Level 23 mmol/L (21-32) Anion Gap 7 (6-14) Blood Urea Nitrogen 38 mg/dL (7-20) Creatinine 1.0 mg/dL (0.6-1.0) Estimated GFR (Cockcroft-Gault) 58.9 Glucose Level 164 mg/dL (70-99) Calcium Level 10.0 mg/dL (8.5-10.1) Test 09/28/19 05:54 Glucose (Fingerstick) 152 mg/dL (70-99) Assessment and Plan Assessmemt and Plan Problems Medical Problems: (1) Acute pancreatitis Status: Acute (2) Cholelithiasis Status: Acute Comment Review of Relevant I have reviewed the following items kolby (where applicable) has been applied. Labs Laboratory Tests Test 09/26/19 08:15 09/26/19 11:00 09/26/19 11:55 09/26/19 18:25 O2 Saturation 98 % (92-99) Arterial Blood pH 7.34 (7.35-7.45) Arterial Blood pCO2 at Patient Temp 40 mmHg (35-46) Arterial Blood pO2 at Patient Temp 126 mmHg (75-108) Arterial Blood HCO3 21 mmol/L (21-28) Arterial Blood Base Excess -5 mmol/L (-3-3) FiO2 40% bipap Stool Occult Blood Negative (NEG) White Blood Count 11.8 x10^3/uL (4.0-11.0) Red Blood Count 2.93 x10^6/uL (3.50-5.40) Hemoglobin 8.6 g/dL (12.0-15.5) Hematocrit 26.0 % (36.0-47.0) Mean Corpuscular Volume 89 fL (79-100) Mean Corpuscular Hemoglobin 29 pg (25-35) Mean Corpuscular Hemoglobin Concent 33 g/dL (31-37) Red Cell Distribution Width 16.8 % (11.5-14.5) Platelet Count 292 x10^3/uL (140-400) Glucose (Fingerstick) 203 mg/dL (70-99) 190 mg/dL (70-99) Test 09/27/19 00:16 09/27/19 04:00 09/27/19 05:24 09/27/19 06:22 Glucose (Fingerstick) 126 mg/dL (70-99) 131 mg/dL (70-99) White Blood Count 8.0 x10^3/uL (4.0-11.0) Red Blood Count 2.92 x10^6/uL (3.50-5.40) Hemoglobin 8.6 g/dL (12.0-15.5) Hematocrit 26.2 % (36.0-47.0) Mean Corpuscular Volume 90 fL (79-100) Mean Corpuscular Hemoglobin 30 pg (25-35) Mean Corpuscular Hemoglobin Concent 33 g/dL (31-37) Red Cell Distribution Width 17.4 % (11.5-14.5) Platelet Count 285 x10^3/uL (140-400) Neutrophils (%) (Auto) 77 % (31-73) Lymphocytes (%) (Auto) 16 % (24-48) Monocytes (%) (Auto) 5 % (0-9) Eosinophils (%) (Auto) 2 % (0-3) Basophils (%) (Auto) 0 % (0-3) Neutrophils # (Auto) 6.1 x10^3/uL (1.8-7.7) Lymphocytes # (Auto) 1.3 x10^3/uL (1.0-4.8) Monocytes # (Auto) 0.4 x10^3/uL (0.0-1.1) Eosinophils # (Auto) 0.2 x10^3/uL (0.0-0.7) Basophils # (Auto) 0.0 x10^3/uL (0.0-0.2) Sodium Level 150 mmol/L (136-145) Potassium Level 4.2 mmol/L (3.5-5.1) Chloride Level 118 mmol/L (98-107) Carbon Dioxide Level 23 mmol/L (21-32) Anion Gap 9 (6-14) Blood Urea Nitrogen 48 mg/dL (7-20) Creatinine 1.1 mg/dL (0.6-1.0) Estimated GFR (Cockcroft-Gault) 52.8 Glucose Level 165 mg/dL (70-99) Calcium Level 10.3 mg/dL (8.5-10.1) O2 Saturation 90 % (92-99) Arterial Blood pH 7.36 (7.35-7.45) Arterial Blood pCO2 at Patient Temp 36 mmHg (35-46) Arterial Blood pO2 at Patient Temp 63 mmHg (75-108) Arterial Blood HCO3 20 mmol/L (21-28) Arterial Blood Base Excess -5 mmol/L (-3-3) FiO2 33 Test 09/27/19 12:16 09/27/19 18:14 09/27/19 23:54 09/28/19 05:50 Glucose (Fingerstick) 140 mg/dL (70-99) 158 mg/dL (70-99) 116 mg/dL (70-99) White Blood Count 6.8 x10^3/uL (4.0-11.0) Red Blood Count 2.67 x10^6/uL (3.50-5.40) Hemoglobin 7.8 g/dL (12.0-15.5) Hematocrit 24.0 % (36.0-47.0) Mean Corpuscular Volume 90 fL (79-100) Mean Corpuscular Hemoglobin 29 pg (25-35) Mean Corpuscular Hemoglobin Concent 33 g/dL (31-37) Red Cell Distribution Width 18.0 % (11.5-14.5) Platelet Count 279 x10^3/uL (140-400) Neutrophils (%) (Auto) 71 % (31-73) Lymphocytes (%) (Auto) 20 % (24-48) Monocytes (%) (Auto) 7 % (0-9) Eosinophils (%) (Auto) 2 % (0-3) Basophils (%) (Auto) 0 % (0-3) Neutrophils # (Auto) 4.8 x10^3/uL (1.8-7.7) Lymphocytes # (Auto) 1.3 x10^3/uL (1.0-4.8) Monocytes # (Auto) 0.5 x10^3/uL (0.0-1.1) Eosinophils # (Auto) 0.1 x10^3/uL (0.0-0.7) Basophils # (Auto) 0.0 x10^3/uL (0.0-0.2) Sodium Level 147 mmol/L (136-145) Potassium Level 3.9 mmol/L (3.5-5.1) Chloride Level 117 mmol/L (98-107) Carbon Dioxide Level 23 mmol/L (21-32) Anion Gap 7 (6-14) Blood Urea Nitrogen 38 mg/dL (7-20) Creatinine 1.0 mg/dL (0.6-1.0) Estimated GFR (Cockcroft-Gault) 58.9 Glucose Level 164 mg/dL (70-99) Calcium Level 10.0 mg/dL (8.5-10.1) Test 09/28/19 05:54 Glucose (Fingerstick) 152 mg/dL (70-99) Laboratory Tests Test 09/27/19 12:16 09/27/19 18:14 09/27/19 23:54 09/28/19 05:50 Glucose (Fingerstick) 140 mg/dL (70-99) 158 mg/dL (70-99) 116 mg/dL (70-99) White Blood Count 6.8 x10^3/uL (4.0-11.0) Red Blood Count 2.67 x10^6/uL (3.50-5.40) Hemoglobin 7.8 g/dL (12.0-15.5) Hematocrit 24.0 % (36.0-47.0) Mean Corpuscular Volume 90 fL (79-100) Mean Corpuscular Hemoglobin 29 pg (25-35) Mean Corpuscular Hemoglobin Concent 33 g/dL (31-37) Red Cell Distribution Width 18.0 % (11.5-14.5) Platelet Count 279 x10^3/uL (140-400) Neutrophils (%) (Auto) 71 % (31-73) Lymphocytes (%) (Auto) 20 % (24-48) Monocytes (%) (Auto) 7 % (0-9) Eosinophils (%) (Auto) 2 % (0-3) Basophils (%) (Auto) 0 % (0-3) Neutrophils # (Auto) 4.8 x10^3/uL (1.8-7.7) Lymphocytes # (Auto) 1.3 x10^3/uL (1.0-4.8) Monocytes # (Auto) 0.5 x10^3/uL (0.0-1.1) Eosinophils # (Auto) 0.1 x10^3/uL (0.0-0.7) Basophils # (Auto) 0.0 x10^3/uL (0.0-0.2) Sodium Level 147 mmol/L (136-145) Potassium Level 3.9 mmol/L (3.5-5.1) Chloride Level 117 mmol/L (98-107) Carbon Dioxide Level 23 mmol/L (21-32) Anion Gap 7 (6-14) Blood Urea Nitrogen 38 mg/dL (7-20) Creatinine 1.0 mg/dL (0.6-1.0) Estimated GFR (Cockcroft-Gault) 58.9 Glucose Level 164 mg/dL (70-99) Calcium Level 10.0 mg/dL (8.5-10.1) Test 09/28/19 05:54 Glucose (Fingerstick) 152 mg/dL (70-99) Microbiology 09/25/19 Gram Stain - Final, Resulted 09/25/19 Aerobic and Anaerobic Culture - Preliminary, Resulted 09/25/19 Blood Culture - Preliminary, Resulted NO GROWTH AFTER 2 DAYS 09/25/19 Urine Culture - Final, Complete 09/17/19 Gram Stain - Final, Complete 09/17/19 Aerobic Culture - Final, Complete Medications Current Medications Sodium Chloride 1,000 ml @ 1,000 mls/hr Q1H IV Last administered on 07/04/19at 03:00; Start 07/04/19 at 03:00; Stop 07/04/19 at 03:59; Status DC Ondansetron HCl (Zofran) 4 mg 1X ONCE IVP Last administered on 07/04/19at 03:27; Start 07/04/19 at 03:00; Stop 07/04/19 at 03:01; Status DC Morphine Sulfate (Morphine Sulfate) 4 mg 1X ONCE IV ; Start 07/04/19 at 03:00; Stop 07/04/19 at 03:01; Status Cancel Ketorolac Tromethamine (Toradol 30mg Vial) 30 mg 1X ONCE IV Last administered on 07/04/19at 02:54; Start 07/04/19 at 03:00; Stop 07/04/19 at 03:01; Status DC Fentanyl Citrate (Fentanyl 2ml Vial) 25 mcg 1X ONCE IVP Last administered on 07/04/19at 03:23; Start 07/04/19 at 03:30; Stop 07/04/19 at 03:31; Status DC Fentanyl Citrate (Fentanyl 2ml Vial) 100 mcg STK-MED ONCE .ROUTE ; Start 07/04/19 at 03:18; Stop 07/04/19 at 03:18; Status DC Iohexol (Omnipaque 350 Mg/ml) 90 ml 1X ONCE IV Last administered on 07/04/19at 03:25; Start 07/04/19 at 03:30; Stop 07/04/19 at 03:31; Status DC Info (CONTRAST GIVEN -- Rx MONITORING) 1 each PRN DAILY PRN MC SEE COMMENTS; Start 07/04/19 at 03:30; Stop 07/06/19 at 03:29; Status DC Hydromorphone HCl (Dilaudid) 0.5 mg 1X ONCE IV Last administered on 07/04/19at 03:55; Start 07/04/19 at 04:30; Stop 07/04/19 at 04:32; Status DC Ondansetron HCl (Zofran) 4 mg PRN Q8HRS PRN IV NAUSEA/VOMITING 1ST CHOICE; Start 07/04/19 at 05:00; Stop 07/04/19 at 09:27; Status DC Morphine Sulfate (Morphine Sulfate) 2 mg PRN Q2HR PRN IV SEVERE PAIN 7-10 Last administered on 07/05/19at 12:26; Start 07/04/19 at 05:00; Stop 07/05/19 at 14:15; Status DC Sodium Chloride 1,000 ml @ 125 mls/hr Q8H IV Last administered on 07/04/19at 20:56; Start 07/04/19 at 05:00; Stop 07/05/19 at 04:59; Status DC Hydromorphone HCl (Dilaudid) 0.5 mg PRN Q3HRS PRN IV SEVERE PAIN 7-10 Last administered on 07/05/19at 10:06; Start 07/04/19 at 05:00; Stop 07/05/19 at 12:01; Status DC Piperacillin Sod/ Tazobactam Sod 4.5 gm/Sodium Chloride 100 ml @ 200 mls/hr 1X ONCE IV Last administered on 07/04/19at 05:44; Start 07/04/19 at 06:00; Stop 07/04/19 at 06:29; Status DC Ondansetron HCl (Zofran) 4 mg PRN Q4HRS PRN IV NAUSEA/VOMITING 1ST CHOICE Last administered on 09/26/19at 21:08; Start 07/04/19 at 09:30 Insulin Human Lispro (HumaLOG) 0-9 UNITS Q6HRS SQ Last administered on 09/28/19at 05:56; Start 07/04/19 at 09:30 Dextrose (Dextrose 50%-Water Syringe) 12.5 gm PRN Q15MIN PRN IV SEE COMMENTS; Start 07/04/19 at 09:30 Pantoprazole Sodium (PROTONIX VIAL for IV PUSH) 40 mg DAILYAC IVP Last administered on 09/27/19at 09:16; Start 07/04/19 at 11:30 Prochlorperazine Edisylate (Compazine) 10 mg PRN Q6HRS PRN IV NAUSEA/VOMITING, 2nd CHOICE Last administered on 09/27/19at 03:45; Start 07/04/19 at 17:45 Atenolol (Tenormin) 100 mg DAILY PO ; Start 07/05/19 at 09:00; Stop 07/04/19 at 20:08; Status DC Metoprolol Tartrate (Lopressor Vial) 2.5 mg Q6HRS IVP Last administered on 07/05/19at 05:51; Start 07/04/19 at 20:15; Stop 07/05/19 at 10:02; Status DC Metoprolol Tartrate (Lopressor Vial) 5 mg Q6HRS IVP Last administered on 07/14/19at 00:12; Start 07/05/19 at 10:15; Stop 07/16/19 at 08:48; Status DC Hydromorphone HCl (Dilaudid) 1 mg PRN Q3HRS PRN IV SEVERE PAIN 7-10 Last administered on 07/11/19at 05:13; Start 07/05/19 at 12:00; Stop 07/19/19 at 00:25; Status DC Lidocaine HCl (Buffered Lidocaine 1%) 3 ml STK-MED ONCE .ROUTE ; Start 07/05/19 at 12:55; Stop 07/05/19 at 12:56; Status DC Albumin Human 500 ml @ 125 mls/hr 1X ONCE IV Last administered on 07/05/19at 14:33; Start 07/05/19 at 14:30; Stop 07/05/19 at 18:32; Status DC Norepinephrine Bitartrate 8 mg/ Dextrose 258 ml @ 17.299 mls/ hr CONT PRN IV PER PROTOCOL Last administered on 08/02/19at 12:48; Start 07/05/19 at 15:30; Stop 08/05/19 at 09:19; Status DC Sodium Chloride 1,000 ml @ 125 mls/hr Q8H IV Last administered on 07/05/19at 21:04; Start 07/05/19 at 16:00; Stop 07/06/19 at 02:42; Status DC Albumin Human 500 ml @ 125 mls/hr PRN BID PRN IV After every 2L NSS & BP < 90mm Last administered on 09/24/19at 11:40; Start 07/05/19 at 16:00 Iohexol (Omnipaque 300 Mg/ml) 60 ml 1X ONCE IV Last administered on 07/05/19at 17:20; Start 07/05/19 at 17:00; Stop 07/05/19 at 17:01; Status DC Info (CONTRAST GIVEN -- Rx MONITORING) 1 each PRN DAILY PRN MC SEE COMMENTS; Start 07/05/19 at 17:00; Stop 07/07/19 at 16:59; Status DC Meropenem 1 gm/ Sodium Chloride 100 ml @ 200 mls/hr Q8HRS IV Last administered on 07/06/19at 05:45; Start 07/05/19 at 20:00; Stop 07/06/19 at 08:48; Status DC Furosemide (Lasix) 40 mg 1X ONCE IVP Last administered on 07/05/19at 22:12; Start 07/05/19 at 22:30; Stop 07/05/19 at 22:31; Status DC Calcium Chloride 1000 mg/Sodium Chloride 110 ml @ 220 mls/hr 1X ONCE IV Last administered on 07/05/19at 22:11; Start 07/05/19 at 22:30; Stop 07/05/19 at 22:59; Status DC Albuterol Sulfate (Ventolin Neb Soln) 2.5 mg 1X ONCE NEB Last administered on 07/06/19at 00:56; Start 07/05/19 at 22:30; Stop 07/05/19 at 22:31; Status DC Insulin Human Regular (HumuLIN R VIAL) 5 unit 1X ONCE IV Last administered on 07/05/19at 22:14; Start 07/05/19 at 22:30; Stop 07/05/19 at 22:31; Status DC Magnesium Sulfate 50 ml @ 25 mls/hr 1X ONCE IV Last administered on 07/06/19at 02:57; Start 07/06/19 at 03:00; Stop 07/06/19 at 04:59; Status DC Calcium Gluconate 1000 mg/Sodium Chloride 110 ml @ 220 mls/hr 1X ONCE IV Last administered on 07/06/19at 02:46; Start 07/06/19 at 03:00; Stop 07/06/19 at 03:29; Status DC Sodium Chloride 1,000 ml @ 200 mls/hr Q5H IV Last administered on 07/06/19at 02:46; Start 07/06/19 at 03:00; Stop 07/06/19 at 10:21; Status DC Calcium Gluconate 1000 mg/Sodium Chloride 110 ml @ 220 mls/hr 1X ONCE IV Last administered on 07/06/19at 03:21; Start 07/06/19 at 03:30; Stop 07/06/19 at 03:59; Status DC Sodium Bicarbonate 50 meq/Sodium Chloride 1,050 ml @ 75 mls/hr Q14H IV Last administered on 07/10/19at 21:10; Start 3/18/20 at 07:30; Stop 07/11/19 at 10:28; Status DC Calcium Gluconate 2000 mg/Sodium Chloride 120 ml @ 220 mls/hr 1X ONCE IV Last administered on 07/06/19at 09:05; Start 07/06/19 at 07:30; Stop 07/06/19 at 08:02; Status DC Lidocaine HCl (Xylocaine-Mpf 1% 2ml Vial) 2 ml STK-MED ONCE .ROUTE ; Start 07/06/19 at 08:47; Stop 07/06/19 at 08:47; Status DC Meropenem 500 mg/ Sodium Chloride 50 ml @ 100 mls/hr Q12HR IV Last administered on 07/11/19at 21:01; Start 07/06/19 at 18:00; Stop 07/12/19 at 07: 58; Status DC Lidocaine HCl (Buffered Lidocaine 1%) 3 ml STK-MED ONCE .ROUTE ; Start 07/06/19 at 09:46; Stop 07/06/19 at 09:46; Status DC Lidocaine HCl (Buffered Lidocaine 1%) 6 ml 1X ONCE INJ Last administered on 07/06/19at 10:26; Start 07/06/19 at 10:15; Stop 07/06/19 at 10:16; Status DC Info (Tpn Per Pharmacy) 1 each PRN DAILY PRN MC SEE COMMENTS Last administered on 09/27/19at 12:43; Start 07/06/19 at 12:00 Sodium Chloride 1,000 ml @ 1,000 mls/hr Q1H PRN IV hypotension; Start 07/06/19 at 12:07; Stop 07/06/19 at 18:06; Status DC Diphenhydramine HCl (Benadryl) 25 mg 1X PRN PRN IV ITCHING; Start 07/06/19 at 12:15; Stop 07/07/19 at 12:14; Status DC Diphenhydramine HCl (Benadryl) 25 mg 1X PRN PRN IV ITCHING; Start 07/06/19 at 12:15; Stop 07/07/19 at 12:14; Status DC Sodium Chloride 1,000 ml @ 400 mls/hr Q2H30M PRN IV PATENCY; Start 07/06/19 at 12:07; Stop 07/07/19 at 00:06; Status DC Info (PHARMACY MONITORING -- do not chart) 1 each PRN DAILY PRN MC SEE COMMENTS; Start 07/06/19 at 12:15; Stop 07/08/19 at 08:13; Status DC Sodium Chloride 90 meq/Calcium Gluconate 10 meq/ Multivitamins 10 ml/Chromium/ Copper/Manganese/ Seleni/Zn 1 ml/ Total Parenteral Nutrition/Amino Acids/Dextrose/ Fat Emulsion Intravenous 55.005 ml @ 2.292 mls/hr TPN CONT IV ; Start 07/06/19 at 22:00; Stop 07/06/19 at 12:33; Status DC Info (Tpn Per Pharmacy) 1 each PRN DAILY PRN MC SEE COMMENTS; Start 07/06/19 at 12:30; Status UNV Sodium Chloride 90 meq/Calcium Gluconate 10 meq/ Multivitamins 10 ml/Chromium/ Copper/Manganese/ Seleni/Zn 0.5 ml/ Total Parenteral Nutrition/Amino Acids/Dextrose/ Fat Emulsion Intravenous 1,512 ml @ 63 mls/hr TPN CONT IV [facility] administered on 07/06/19at 22:06; Start 07/06/19 at 22:00; Stop 07/07/19 at 21:59; Status DC Calcium Carbonate/ Glycine (Tums) 500 mg PRN AFTMEALHC PRN PO INDIGESTION; Start 07/06/19 at 17:45; Stop 08/31/19 at 10:25; Status DC Calcium Gluconate (Calcium Gluconate) 2,000 mg 1X ONCE IVP Last administered on 07/07/19at 02:19; Start 07/07/19 at 02:15; Stop 07/07/19 at 02:16; Status DC Calcium Chloride 3000 mg/Sodium Chloride 1,030 ml @ 50 mls/hr [id number] IV Last administered on 07/09/19at 02:17; Start 07/07/19 at 08:00; Stop 07/09/19 at 15:23; Status DC Lorazepam (Ativan Inj) 1 mg PRN Q4HRS PRN IVP ANXIETY / AGITATION, 2nd choic Last administered on 08/05/19at 03:51; Start 07/07/19 at 09:00; Stop 08/05/19 at 09:19; Status DC Sodium Chloride 1,000 ml @ 1,000 mls/hr Q1H PRN IV hypotension; Start 07/07/19 at 08:56; Stop 07/07/19 at 14:55; Status DC Albumin Human 200 ml @ 200 mls/hr 1X PRN PRN IV Hypotension; Start 07/07/19 at 09:00; Stop 07/07/19 at 14:59; Status DC Diphenhydramine HCl (Benadryl) 25 mg 1X PRN PRN IV ITCHING; Start 07/07/19 at 09:00; Stop 07/08/19 at 08:59; Status DC Diphenhydramine HCl (Benadryl) 25 mg 1X PRN PRN IV ITCHING; Start 07/07/19 at 09:00; Stop 07/08/19 at 08:59; Status DC Sodium Chloride 1,000 ml @ 400 mls/hr Q2H30M PRN IV PATENCY; Start 07/07/19 at 08:56; Stop 07/07/19 at 20:55; Status DC Info (PHARMACY MONITORING -- do not chart) 1 each PRN DAILY PRN MC SEE COMMENTS; Start 07/07/19 at 09:00; Status UNV Info (PHARMACY MONITORING -- do not chart) 1 each PRN DAILY PRN MC SEE COMMENTS; Start 07/07/19 at 09:00; Stop 07/08/19 at 08:13; Status DC Digoxin (Lanoxin) 500 mcg 1X ONCE IV Last administered on 07/07/19at 10:04; Start 07/07/19 at 10:00; Stop 07/07/19 at 10:01; Status DC Digoxin (Lanoxin) 125 mcg 1X ONCE IV Last administered on 07/07/19at 17:10; Start 07/07/19 at 18:00; Stop 07/07/19 at 18:01; Status DC Magnesium Sulfate 100 ml @ 25 mls/hr 1X ONCE IV Last administered on 07/07/19at 12:48; Start 07/07/19 at 13:00; Stop 07/07/19 at 16:59; Status DC Sodium Chloride 90 meq/Magnesium Sulfate 10 meq/ Calcium Gluconate 20 meq/ Multivitamins 10 ml/Chromium/ Copper/Manganese/ Seleni/Zn 0.5 ml/ Total Parenteral Nutrition/Amino Acids/Dextrose/ Fat Emulsion Intravenous 1,512 ml @ 63 mls/hr TPN CONT IV Last administered on 07/07/19at 22:25; Start 07/07/19 at 22:00; Stop 07/08/19 at 21:59; Status DC Sodium Chloride 1,000 ml @ 1,000 mls/hr Q1H PRN IV hypotension; Start 07/08/19 at 08:05; Stop 07/08/19 at 14:04; Status DC Albumin Human 200 ml @ 200 mls/hr 1X ONCE IV Last administered on 07/08/19at 08:57; Start 07/08/19 at 08:15; Stop 07/08/19 at 09:14; Status DC Diphenhydramine HCl (Benadryl) 25 mg 1X PRN PRN IV ITCHING; Start 07/08/19 at 08:15; Stop 07/09/19 at 08:14; Status DC Diphenhydramine HCl (Benadryl) 25 mg 1X PRN PRN IV ITCHING; Start 07/08/19 at 08:15; Stop 07/09/19 at 08:14; Status DC Sodium Chloride 1,000 ml @ 400 mls/hr Q2H30M PRN IV PATENCY; Start 07/08/19 at 08:05; Stop 07/08/19 at 20:04; Status DC Info (PHARMACY MONITORING -- do not chart) 1 each PRN DAILY PRN MC SEE COMMENTS; Start 07/08/19 at 08:15; Stop 07/12/19 at 07:57; Status DC Sodium Chloride 90 meq/Potassium Chloride 15 meq/ Potassium Phosphate 10 mmol/ Magnesium Sulfate 10 meq/Calcium Gluconate 20 meq/ Multivitamins 10 ml/Chromium/ Copper/Manganese/ Seleni/Zn 0.5 ml/ Total Parenteral Nutrition/Amino Acids/Dextrose/ Fat Emulsion Intravenous 1,512 ml @ 63 mls/hr TPN CONT IV Last administered on 07/08/19at 21:01; Start 07/08/19 at 22:00; Stop 07/09/19 at 21:59; Status DC Potassium Chloride/Water 100 ml @ 100 mls/hr 1X ONCE IV Last administered on 07/08/19at 14:09; Start 07/08/19 at 14:00; Stop 07/08/19 at 14:59; Status DC Benzocaine (Hurricaine One) 1 spray 1X ONCE MM Last administered on 07/08/19at 16:38; Start 07/08/19 at 14:30; Stop 07/08/19 at 14:31; Status DC Lidocaine HCl (Glydo (Lidocaine) Jelly) 1 ramu 1X ONCE MM Last administered on 07/08/19at 16:38; Start 07/08/19 at 14:30; Stop 07/08/19 at 14:31; Status DC Linezolid/Dextrose 300 ml @ 300 mls/hr Q12HR IV Last administered on 07/14/19at 21:04; Start 07/08/19 at 20:00; Stop 07/15/19 at 07:50; Status DC Acetaminophen (Tylenol) 650 mg PRN Q6HRS PRN PO MILD PAIN / TEMP; Start 07/09/19 at 03:30; Stop 07/09/19 at 03:36; Status DC Acetaminophen (Tylenol) 650 mg PRN Q6HRS PRN PEG MILD PAIN / TEMP Last administered on 08/04/19at 19:56; Start 07/09/19 at 03:36; Stop 08/31/19 at 10:25; Status DC Sodium Chloride 1,000 ml @ 1,000 mls/hr Q1H PRN IV hypotension; Start 07/09/19 at 07:50; Stop 07/09/19 at 13:49; Status DC Albumin Human 200 ml @ 200 mls/hr 1X PRN PRN IV Hypotension; Start 07/09/19 at 08:00; Stop 07/09/19 at 13:59; Status DC Sodium Chloride (Normal Saline Flush) 10 ml 1X PRN PRN IV AP catheter pack; Start 07/09/19 at 08:00; Stop 07/10/19 at 07:59; Status DC Sodium Chloride (Normal Saline Flush) 10 ml 1X PRN PRN IV REFORMATORY ATTENDANT catheter pack; Start 07/09/19 at 08:00; Stop 07/10/19 at 07:59; Status DC Sodium Chloride 1,000 ml @ 400 mls/hr Q2H30M PRN IV PATENCY; Start 07/09/19 at 07:50; Stop 07/09/19 at 19:49; Status DC Info (PHARMACY MONITORING -- do not chart) 1 each PRN DAILY PRN MC SEE COMMENTS; Start 07/09/19 at 08:00; Status UNV Info (PHARMACY MONITORING -- do not chart) 1 each PRN DAILY PRN MC SEE COMMENTS; Start 07/09/19 at 08:00; Stop 07/11/19 at 08:25; Status DC Sodium Chloride 90 meq/Potassium Chloride 15 meq/ Potassium Phosphate 10 mmol/ Magnesium Sulfate 10 meq/Calcium Gluconate 20 meq/ Multivitamins 10 ml/Chromium/ Copper/Manganese/ Seleni/Zn 0.5 ml/ Total Parenteral Nutrition/Amino Acids/Dextrose/ Fat Emulsion Intravenous 1,512 ml @ 63 mls/hr TPN CONT IV Last administered on 07/09/19at 20:57; Start 07/09/19 at 22:00; Stop 07/10/19 at 21:59; Status DC Sodium Chloride 90 meq/Potassium Chloride 15 meq/ Potassium Phosphate 15 mmol/ Magnesium Sulfate 10 meq/Calcium Gluconate 20 meq/ Multivitamins 10 ml/Chromium/ Copper/Manganese/ Seleni/Zn 0.5 ml/ Total Parenteral Nutrition/Amino Acids/Dextr ose/ Fat Emulsion Intravenous 1,512 ml @ 63 mls/hr TPN CONT IV ; Start 07/10/19 at 22:00; Stop 07/10/19 at 14:16; Status DC Sodium Chloride 90 meq/Potassium Chloride 15 meq/ Potassium Phosphate 15 mmol/ Magnesium Sulfate 10 meq/Calcium Gluconate 20 meq/ Multivitamins 10 ml/Chromium/ Copper/Manganese/ Seleni/Zn 0.5 ml/ Total Parenteral Nutrition/Amino Acids/Dextrose/ Fat Emulsion Intravenous 1,200 ml @ 50 mls/hr TPN CONT IV ; Start 07/10/19 at 22:00; Stop 07/10/19 at 14:17; Status DC Sodium Chloride 90 meq/Potassium Chloride 15 meq/ Potassium Phosphate 10 mmol/ Magnesium Sulfate 10 meq/Calcium Gluconate 20 meq/ Multivitamins 10 ml/Chromium/ Copper/Manganese/ Seleni/Zn 0.5 ml/ Total Parenteral Nutrition/Amino Acids/Dextrose/ Fat Emulsion Intravenous 1,200 ml @ 50 mls/hr TPN CONT IV Last administered on 07/10/19at 23:29; Start 07/10/19 at 22:00; Stop 07/11/19 at 21:59; Status DC Sodium Chloride 1,000 ml @ 1,000 mls/hr Q1H PRN IV hypotension; Start 07/11/19 at 07:28; Stop 07/11/19 at 13:27; Status DC Albumin Human 200 ml @ 200 mls/hr 1X ONCE IV Last administered on 07/11/19at 08:51; Start 07/11/19 at 07:30; Stop 07/11/19 at 08:29; Status DC Diphenhydramine HCl (Benadryl) 25 mg 1X PRN PRN IV ITCHING; Start 07/11/19 at 07:30; Stop 07/12/19 at 07:29; Status DC Diphenhydramine HCl (Benadryl) 25 mg 1X PRN PRN IV ITCHING; Start 07/11/19 at 07:30; Stop 07/12/19 at 07:29; Status DC Sodium Chloride 1,000 ml @ 400 mls/hr Q2H30M PRN IV PATENCY; Start 07/11/19 at 07:28; Stop 07/11/19 at 19:27; Status DC Info (PHARMACY MONITORING -- do not chart) 1 each PRN DAILY PRN MC SEE COMMENTS; Start 07/11/19 at 07:30; Stop 07/22/19 at 13:01; Status DC Metronidazole 100 ml @ 100 mls/hr Q6HRS IV Last administered on 07/27/19at 06:26; Start 07/11/19 at 08:30; Stop 07/27/19 at 09:58; Status DC Micafungin Sodium 100 mg/Dextrose 100 ml @ 100 mls/hr Q24H IV Last administered on 08/18/19at 08:18; Start 07/11/19 at 09:00; Stop 08/18/19 at 20:58; Status DC Propofol 0 ml @ As Directed STK-MED ONCE IV ; Start 07/11/19 at 07:53; Stop 07/11/19 at 07:53; Status DC Etomidate (Amidate) 20 mg STK-MED ONCE IV ; Start 07/11/19 at 07:53; Stop 07/11/19 at 07:54; Status DC Midazolam HCl (Versed) 5 mg STK-MED ONCE .ROUTE ; Start 07/11/19 at 07:57; Stop 07/11/19 at 07:57; Status DC Fentanyl Citrate 30 ml @ 0 mls/hr CONT PRN IV SEE PROTOCOL Last administered on 08/05/19at 06:12; Start 07/11/19 at 08:15; Stop 08/05/19 at 09:19; Status DC Artificial Tears (Artificial Tears) 1 drop PRN Q1HR PRN OU DRY EYE, 1st choice; Start 07/11/19 at 08:15; Stop 08/17/19 at 05:31; Status DC Midazolam HCl 50 mg/Sodium Chloride 50 ml @ 0 mls/hr CONT PRN IV SEE PROTOCOL Last administered on 07/14/19at 22:39; Start 07/11/19 at 08:15; Stop 07/16/19 at 15:59; Status DC Etomidate (Amidate) 8 mg 1X ONCE IV Last administered on 07/11/19at 08:33; Start 07/11/19 at 08:30; Stop 07/11/19 at 08:31; Status DC Succinylcholine Chloride (Anectine) 120 mg 1X ONCE IV Last administered on 07/11/19at 08:34; Start 07/11/19 at 08:30; Stop 07/11/19 at 08:31; Status DC Midazolam HCl (Versed) 5 mg 1X ONCE IV ; Start 07/11/19 at 08:30; Stop 07/11/19 at 08:31; Status DC Potassium Chloride 15 meq/ Bicarbonate Dialysis Soln w/ out KCl 5,007.5 ml @ 1,000 mls/ hr Q5H1M IV Last administered on 07/12/19at 11:11; Start 07/11/19 at 12:00; Stop 07/12/19 at 11:15; Status DC Potassium Chloride 15 meq/ Bicarbonate Dialysis Soln w/ out KCl 5,007.5 ml @ 1,000 mls/ hr Q5H1M IV Last administered on 07/12/19at 11:12; Start 07/11/19 at 12:00; Stop 07/12/19 at 11:17; Status DC Potassium Chloride 15 meq/ Bicarbonate Dialysis Soln w/ out KCl 5,007.5 ml @ 1,000 mls/ hr Q5H1M IV Last administered on 07/12/19at 11:11; Start 07/11/19 at 12:00; Stop 07/12/19 at 11:19; Status DC Sodium Chloride 90 meq/Potassium Chloride 15 meq/ Potassium Phosphate 10 mmol/ Magnesium Sulfate 10 meq/Calcium Gluconate 20 meq/ Multivitamins 10 ml/Chromium/ Copper/Manganese/ Seleni/Zn 0.5 ml/ Total Parenteral Nutrition/Amino Acids/Dextrose/ Fat Emulsion Intravenous 1,400 ml @ 58.333 mls/ hr TPN CONT IV Last administered on 07/11/19at 21:42; Start 07/11/19 at 22:00; Stop 07/12/19 at 21:59; Status DC Heparin Sodium (Porcine) (Heparin Sodium) 5,000 unit Q8HRS SQ Last administered on 07/16/19at 05:55; Start 07/11/19 at 15:00; Stop 07/16/19 at 13:28; Status DC Meropenem 500 mg/ Sodium Chloride 50 ml @ 100 mls/hr Q6HRS IV Last administered on 07/13/19at 06:00; Start 07/12/19 at 09:00; Stop 07/13/19 at 0 7:29; Status DC Potassium Phosphate 20 mmol/ Sodium Chloride 106.6667 ml @ 51.667 m... 1X ONCE IV Last administered on 07/12/19at 11:22; Start 07/12/19 at 10:15; Stop 07/12/19 at 12:18; Status DC Acetaminophen (Tylenol Supp) 650 mg PRN Q6HRS PRN SD MILD PAIN / TEMP > 100.3'F Last administered on 09/25/19at 14:41; Start 07/12/19 at 10:30 Potassium Chloride/Water 100 ml @ 100 mls/hr Q1H IV Last administered on 07/12/19at 12:12; Start 07/12/19 at 11:00; Stop 07/12/19 at 12:59; Status DC Potassium Chloride 20 meq/ Bicarbonate Dialysis Soln w/ out KCl 5,010 ml @ 1,000 mls/hr Q5H1M IV Last administered on 07/13/19at 08:48; Start 07/12/19 at 12:00; Stop 07/13/19 at 13:03; Status DC Potassium Chloride 20 meq/ Bicarbonate Dialysis Soln w/ out KCl 5,010 ml @ 1 ,000 mls/hr Q5H1M IV Last administered on 07/17/19at 14:52; Start 07/12/19 at 11:30; Stop 07/17/19 at 19:59; Status DC Potassium Chloride 20 meq/ Bicarbonate Dialysis Soln w/ out KCl 5,010 ml @ 1,000 mls/hr Q5H1M IV Last administered on 07/17/19at 14:53; Start 07/12/19 at 11:30; Stop 07/17/19 at 19:59; Status DC Sodium Chloride 90 meq/Potassium Chloride 15 meq/ Potassium Phosphate 15 mmol/ Magnesium Sulfate 10 meq/Calcium Gluconate 15 meq/ Multivitamins 10 ml/Chromium/ Copper/Manganese/ Seleni/Zn 0.5 ml/ Total Parenteral Nutrition/Amino Acids/Dextrose/ Fat Emulsion Intravenous 1,400 ml @ 58.333 mls/ hr TPN CONT IV Last administered on 07/12/19at 22:17; Start 07/12/19 at 22:00; Stop 07/13/19 at 21:59; Status DC Cefepime HCl (Maxipime) 2 gm Q12HR IVP Last administered on 07/26/19at 20:56; Start 07/13/19 at 09:00; Stop 07/27/19 at 09:58; Status DC Daptomycin 500 mg/ Sodium Chloride 50 ml @ 100 mls/hr Q48H IV Last administered on 07/29/19at 09:57; Start 07/13/19 at 08:30; Stop 07/29/19 at 10:07; Status DC Lidocaine HCl (Buffered Lidocaine 1%) 3 ml 1X ONCE INJ Last administered on 07/13/19at 10:27; Start 07/13/19 at 10:30; Stop 07/13/19 at 10:31; Status DC Potassium Phosphate 20 mmol/ Sodium Chloride 106.6667 ml @ 51.667 m... 1X ONCE IV Last administered on 07/13/19at 12:51; Start 07/13/19 at 13:00; Stop 07/13/19 at 15:03; Status DC Sodium Chloride 90 meq/Potassium Chloride 15 meq/ Potassium Phosphate 18 mmol/ Magnesium Sulfate 8 meq/Calcium Gluconate 15 meq/ Multivitamins 10 ml/Chromium/ Copper/Manganese/ Seleni/Zn 0.5 ml/ Total Parenteral Nutrition/Amino Acids/Dextrose/ Fat Emulsion Intravenous 1,400 ml @ 58.333 mls/ hr TPN CONT IV Last administered on 07/13/19at 22:16; Start 07/13/19 at 22:00; Stop 07/14/19 at 21:59; Status DC Potassium Chloride 20 meq/ Bicarbonate Dialysis Soln w/ out KCl 5,010 ml @ 1,000 mls/hr Q5H1M IV Last administered on 07/17/19at 14:54; Start 07/13/19 at 16:00; Stop 07/17/19 at 19:59; Status DC Multi-Ingred Cream/Lotion/Oil/ Oint (Artificial Tears Eye Ointment) 1 ramu PRN Q1HR PRN OU DRY EYE, 2nd choice Last administered on 08/01/19at 08:19; Start 07/13/19 at 17:30; Stop 09/21/19 at 14:39; Status DC Sodium Chloride 90 meq/Potassium Chloride 15 meq/ Potassium Phosphate 18 mmol/ Magnesium Sulfate 8 meq/Calcium Gluconate 15 meq/ Multivitamins 10 ml/Chromium/ Copper/Manganese/ Seleni/Zn 0.5 ml/ Total Parenteral Nutrition/Amino Acids/Dextrose/ Fat Emulsion Intravenous 1,400 ml @ 58.333 mls/ hr TPN CONT IV Last administered on 07/14/19at 22:00; Start 07/14/19 at 22:00; Stop 07/15/19 at 21:59; Status DC Albumin Human 500 ml @ 125 mls/hr 1X ONCE IV ; Start 07/14/19 at 14:15; Stop 07/14/19 at 18:14; Status DC Sodium Chloride 90 meq/Potassium Chloride 15 meq/ Potassium Phosphate 18 mmol/ Magnesium Sulfate 8 meq/Calcium Gluconate 15 meq/ Multivitamins 10 ml/Chromium/ Copper/Manganese/ Seleni/Zn 0.5 ml/ Insulin Human Regular 10 unit/ Total Parenteral Nutrition/Amino Acids/Dextrose/ Fat Emulsion Intravenous 1,400 ml @ 58.333 mls/ hr TPN CONT IV Last administered on 07/15/19at 21:43; Start 07/15/19 at 22:00; Stop 07/16/19 at 21:59; Status DC Lidocaine HCl (Buffered Lidocaine 1%) 3 ml STK-MED ONCE .ROUTE ; Start 07/13/19 at 10:00; Stop 07/15/19 at 13:57; Status DC Midazolam HCl 100 mg/Sodium Chloride 100 ml @ 7 mls/hr CONT PRN IV SEE PROTOCOL Last administered on 07/27/19at 15:35; Start 07/16/19 at 16:00; Stop 09/21/19 at 14:38; Status DC Sodium Chloride 90 meq/Potassium Chloride 15 meq/ Potassium Phosphate 18 mmol/ Magnesium Sulfate 8 meq/Calcium Gluconate 15 meq/ Multivitamins 10 ml/Chromium/ Copper/Manganese/ Seleni/Zn 0.5 ml/ Insulin Human Regular 15 unit/ Total Parenteral Nutrition/Amino Acids/Dextrose/ Fat Emulsion Intravenous 1,400 ml @ 58.333 mls/ hr TPN CONT IV Last administered on 07/16/19at 20:34; Start 07/16/19 at 22:00; Stop 07/17/19 at 21:59; Status DC Info (Icu Electrolyte Protocol) 1 ea CONT PRN PRN MC PER PROTOCOL; Start 07/17/19 at 13:15 Sodium Chloride 90 meq/Potassium Chloride 15 meq/ Potassium Phosphate 18 mmol/ Magnesium Sulfate 8 meq/Calcium Gluconate 15 meq/ Multivitamins 10 ml/Chromium/ Copper/Manganese/ Seleni/Zn 0.5 ml/ Insulin Human Regular 15 unit/ Total Parenteral Nutrition/Amino Acids/Dextrose/ Fat Emulsion Intravenous 1,400 ml @ 58.333 mls/ hr TPN CONT IV Last administered on 07/17/19at 22:05; Start at 22:00; Stop 07/18/19 at 21:59; Status DC Potassium Chloride 15 meq/ Bicarbonate Dialysis Soln w/ out KCl 5,007.5 ml @ 1,000 mls/ hr Q5H1M IV Last administered on 07/20/19at 18:14; Start 07/17/19 at 20:00; Stop 07/21/19 at 13:08; Status DC Potassium Chloride 15 meq/ Bicarbonate Dialysis Soln w/ out KCl 5,007.5 ml @ 1,000 mls/ hr Q5H1M IV Last administered on 07/20/19at 18:14; Start 07/17/19 at 20:00; Stop 07/21/19 at 13:08; Status DC Potassium Chloride 15 meq/ Bicarbonate Dialysis Soln w/ out KCl 5,007.5 ml @ 1,000 mls/ hr Q5H1M IV Last administered on 07/20/19at 18:14; Start 07/17/19 at 20:00; Stop 07/21/19 at 13:08; Status DC Iohexol (Omnipaque 240 Mg/ml) 30 ml 1X ONCE PO Last administered on 07/18/19at 11:30; Start 07/18/19 at 11:30; Stop 07/18/19 at 11:33; Status DC Info (CONTRAST GIVEN -- Rx MONITORING) 1 each PRN DAILY PRN MC SEE COMMENTS; Start 07/18/19 at 11:45; Stop 07/20/19 at 11:44; Status DC Sodium Chloride 90 meq/Potassium Chloride 15 meq/ Potassium Phosphate 18 mmol/ Magnesium Sulfate 8 meq/Calcium Gluconate 15 meq/ Multivitamins 10 ml/Chromium/ Copper/Manganese/ Seleni/Zn 0.5 ml/ Insulin Human Regular 15 unit/ Total Parenteral Nutrition/Amino Acids/Dextrose/ Fat Emulsion Intravenous 1,400 ml @ 58.333 mls/ hr TPN CONT IV Last administered on 07/18/19at 21:47; Start 07/18/19 at 22:00; Stop 07/19/19 at 21:59; Status DC Sodium Chloride 90 meq/Potassium Chloride 15 meq/ Potassium Phosphate 18 mmol/ Magnesium Sulfate 8 meq/Calcium Gluconate 15 meq/ Multivitamins 10 ml/Chromium/ Copper/Manganese/ Seleni/Zn 0.5 ml/ Insulin Human Regular 20 unit/ Total Parenteral Nutrition/Amino Acids/Dextrose/ Fat Emulsion Intravenous 1,400 ml @ 58.333 mls/ hr TPN CONT IV Last administered on 07/19/19at 21:36; Start 07/19/19 at 22:00; Stop 07/20/19 at 21:59; Status DC Alteplase, Recombinant (Cathflo For Central Catheter Clearance) 1 mg 1X ONCE INT CAT Last administered on 07/19/19at 20:03; Start 07/19/19 at 19:30; Stop 07/19/19 at 19:46; Status DC Alteplase, Recombinant (Cathflo For Central Catheter Clearance) 1 mg 1X ONCE INT CAT Last administered on 07/19/19at 22:05; Start 07/19/19 at 22:00; Stop 07/19/19 at 22:01; Status DC Sodium Chloride 90 meq/Potassium Chloride 15 meq/ Potassium Phosphate 18 mmol/ Magnesium Sulfate 8 meq/Calcium Gluconate 15 meq/ Multivitamins 10 ml/Chromium/ Copper/Manganese/ Seleni/Zn 0.5 ml/ Insulin Human Regular 20 unit/ Total Parenteral Nutrition/Amino Acids/Dextrose/ Fat Emulsion Intravenous 1,400 ml @ 58.333 mls/ hr TPN CONT IV Last administered on 07/20/19at 21:30; Start 07/20/19 at 22:00; Stop 07/21/19 at 21:59; Status DC Dexmedetomidine HCl 400 mcg/ Sodium Chloride 100 ml @ 0 mls/hr CONT PRN IV ANXIETY / AGITATION Last administered on 09/17/19at 12:57; Start 07/21/19 at 08:15; Stop 09/17/19 at 18:31; Status DC Sodium Chloride 500 ml @ 500 mls/hr 1X PRN PRN IV ELEVATED BP, SEE COMMENTS; Start 07/21/19 at 08:15 Atropine Sulfate (ATROPINE 0.5mg SYRINGE) 0.5 mg PRN Q5MIN PRN IV SEE COMMENTS; Start 07/21/19 at 08:15 Furosemide (Lasix) 20 mg 1X ONCE IVP Last administered on 07/21/19at 08:19; Start 07/21/19 at 08:15; Stop 07/21/19 at 08:16; Status DC Lidocaine HCl (Buffered Lidocaine 1%) 3 ml STK-MED ONCE .ROUTE ; Start 07/21/19 at 08:39; Stop 07/21/19 at 08:39; Status DC Lidocaine HCl (Buffered Lidocaine 1%) 6 ml 1X ONCE INJ Last administered on 07/21/19at 09:05; Start 07/21/19 at 09:00; Stop 07/21/19 at 09:06; Status DC Sodium Chloride 90 meq/Potassium Chloride 15 meq/ Potassium Phosphate 18 mmol/ Magnesium Sulfate 8 meq/Calcium Gluconate 15 meq/ Multivitamins 10 ml/Chromium/ Copper/Manganese/ Seleni/Zn 0.5 ml/ Insulin Human Regular 20 unit/ Total Parenteral Nutrition/Amino Acids/Dextrose/ Fat Emulsion Intravenous 1,400 ml @ 58.333 mls/ hr TPN CONT IV Last administered on 07/21/19at 22:45; Start 07/21/19 at 22:00; Stop 07/22/19 at 21:59; Status DC Sodium Chloride 1,000 ml @ 1,000 mls/hr Q1H PRN IV hypotension; Start 07/22/19 at 07:30; Stop 07/22/19 at 13:29; Status DC Albumin Human 200 ml @ 200 mls/hr 1X PRN PRN IV Hypotension Last administered on 07/22/19at 09:36; Start 07/22/19 at 07:30; Stop 07/22/19 at 13:29; Status DC Sodium Chloride (Normal Saline Flush) 10 ml 1X PRN PRN IV AP catheter pack; Start 07/22/19 at 07:30; Stop 07/22/19 at 21:29; Status DC Sodium Chloride (Normal Saline Flush) 10 ml 1X PRN PRN IV REFORMATORY ATTENDANT catheter pack; Start 07/22/19 at 07:30; Stop 07/23/19 at 07:29; Status DC Sodium Chloride 1,000 ml @ 400 mls/hr Q2H30M PRN IV PATENCY; Start 07/22/19 at 07:30; Stop 07/22/19 at 19:29; Status DC Info (PHARMACY MONITORING -- do not chart) 1 each PRN DAILY PRN MC SEE COMMENTS; Start 07/22/19 at 07:30; Stop 07/22/19 at 13:02; Status DC Info (PHARMACY MONITORING -- do not chart) 1 each PRN DAILY PRN MC SEE COMMENTS; Start 07/22/19 at 07:30; Stop 07/24/19 at 12:45; Status DC Sodium Chloride 90 meq/Potassium Chloride 15 meq/ Potassium Phosphate 10 mmol/ Magnesium Sulfate 8 meq/Calcium Gluconate 15 meq/ Multivitamins 10 ml/Chromium/ Copper/Manganese/ Seleni/Zn 0.5 ml/ Insulin Human Regular 25 unit/ Total Parenteral Nutrition/Amino Acids/Dextrose/ Fat Emulsion Intravenous 1,400 ml @ 58.333 mls/ hr TPN CONT IV Last administered on 07/22/19at 22:19; Start 07/22/19 at 22:00; Stop 07/23/19 at 21:59; Status DC Heparin Sodium (Porcine) (Heparin Sodium) 5,000 unit Q12HR SQ Last administered on 08/14/19at 08:59; Start 07/22/19 at 21:00; Stop 08/14/19 at 10:05; Status DC Ondansetron HCl (Zofran) 4 mg PRN Q6HRS PRN IV NAUSEA/VOMITING; Start 07/25/19 at 07:00; Stop 07/26/19 at 06:59; Status DC Fentanyl Citrate (Fentanyl 2ml Vial) 25 mcg PRN Q5MIN PRN IV MILD PAIN 1-3; Start 07/25/19 at 07:00; Stop 07/26/19 at 06:59; Status DC Fentanyl Citrate (Fentanyl 2ml Vial) 50 mcg PRN Q5MIN PRN IV MODERATE TO SEVERE PAIN; Start 07/25/19 at 07:00; Stop 07/26/19 at 06:59; Status DC Ringer's Solution 1,000 ml @ 30 mls/hr Q24H IV ; Start 07/25/19 at 07:00; Stop 07/25/19 at 18:59; Status DC Lidocaine HCl (Xylocaine-Mpf 1% 2ml Vial) 2 ml PRN 1X PRN ID PRIOR TO IV START; Start 07/25/19 at 07:00; Stop 07/26/19 at 06:59; Status DC Prochlorperazine Edisylate (Compazine) 5 mg PACU PRN PRN IV NAUSEA, MRX1; Start 07/25/19 at 07:00; Stop 07/26/19 at 06:59; Status DC Sodium Chloride 1,000 ml @ 1,000 mls/hr Q1H PRN IV hypotension; Start 07/23/19 at 09:10; Stop 07/23/19 at 15:09; Status DC Albumin Human 200 ml @ 200 mls/hr 1X PRN PRN IV Hypotension Last administered on 07/23/19at 10:10; Start 07/23/19 at 09:15; Stop 07/23/19 at 15:14; Status DC Sodium Chloride 1,000 ml @ 400 mls/hr Q2H30M PRN IV PATENCY; Start 07/23/19 at 09:10; Stop 07/23/19 at 21:09; Status DC Info (PHARMACY MONITORING -- do not chart) 1 each PRN DAILY PRN MC SEE COMMENTS; Start 07/23/19 at 09:15; Stop 07/24/19 at 12:45; Status DC Info (PHARMACY MONITORING -- do not chart) 1 each PRN DAILY PRN MC SEE COMMENTS; Start 07/23/19 at 09:15; Stop 07/24/19 at 12:45; Status DC Sodium Chloride 90 meq/Potassium Chloride 15 meq/ Potassium Phosphate 10 mmol/ Magnesium Sulfate 8 meq/Calcium Gluconate 15 meq/ Multivitamins 10 ml/Chromium/ Copper/Manganese/ Seleni/Zn 0.5 ml/ Insulin Human Regular 25 unit/ Total Parenteral Nutrition/Amino Acids/Dextrose/ Fat Emulsion Intravenous 1,400 ml @ 58.333 mls/ hr TPN CONT IV Last administered on 07/23/19at 22:10; Start 07/23/19 at 22:00; Stop 07/24/19 at 21:59; Status DC Magnesium Sulfate 50 ml @ 25 mls/hr PRN DAILY PRN IV for Mag < 1.7 on am labs Last administered on 08/08/19at 17:27; Start 07/24/19 at 09:15 Sodium Chloride 90 meq/Potassium Chloride 15 meq/ Potassium Phosphate 10 mmol/ Magnesium Sulfate 8 meq/Calcium Gluconate 15 meq/ Multivitamins 10 ml/Chromium/ Copper/Manganese/ Seleni/Zn 0.5 ml/ Insulin Human Regular 25 unit/ Total Janett ral Nutrition/Amino Acids/Dextrose/ Fat Emulsion Intravenous 1,400 ml @ 58.333 mls/ hr TPN CONT IV Last administered on 07/24/19at 21:20; Start 07/24/19 at 22:00; Stop 07/25/19 at 21:59; Status DC Sodium Chloride 1,000 ml @ 1,000 mls/hr Q1H PRN IV hypotension; Start 07/24/19 at 12:23; Stop 07/24/19 at 18:22; Status DC Albumin Human 200 ml @ 200 mls/hr 1X ONCE IV Last administered on 07/24/19at 13:34; Start 07/24/19 at 12:30; Stop 07/24/19 at 13:29; Status DC Diphenhydramine HCl (Benadryl) 25 mg 1X PRN PRN IV ITCHING; Start 07/24/19 at 12:30; Stop 07/25/19 at 12:29; Status DC Diphenhydramine HCl (Benadryl) 25 mg 1X PRN PRN IV ITCHING; Start 07/24/19 at 12:30; Stop 07/25/19 at 12:29; Status DC Info (PHARMACY MONITORING -- do not chart) 1 each PRN DAILY PRN MC SEE COMMENTS; Start 07/24/19 at 12:30; Status Cancel Bupivacaine HCl/ Epinephrine Bitart (Sensorcain-Epi 0.5%-1:427121 Mpf) 30 ml STK-MED ONCE .ROUTE Last administered on 07/25/19at 11:44; Start 07/25/19 at 11:00; Stop 07/25/19 at 11:01; Status DC Cellulose (Surgicel Fibrillar 1x2) 1 each STK-MED ONCE .ROUTE ; Start 07/25/19 at 11:00; Stop 07/25/19 at 11:01; Status DC Sodium Chloride 90 meq/Potassium Chloride 15 meq/ Potassium Phosphate 10 mmol/ Magnesium Sulfate 12 meq/Calcium Gluconate 15 meq/ Multivitamins 10 ml/Chromium/ Copper/Manganese/ Seleni/Zn 0.5 ml/ Insulin Human Regular 25 unit/ Total Parenteral Nutrition/Amino Acids/Dextrose/ Fat Emulsion Intravenous 1,400 ml @ 58.333 mls/ hr TPN CONT IV Last administered on 07/25/19at 22:24; Start 07/25/19 at 22:00; Stop 07/26/19 at 21:59; Status DC Propofol 20 ml @ As Directed STK-MED ONCE IV ; Start 07/25/19 at 11:07; Stop 07/25/19 at 11:07; Status DC Cellulose (Surgicel Hemostat 4x8) 1 each STK-MED ONCE .ROUTE Last administered on 07/25/19at 11:44; Start 07/25/19 at 11:55; Stop 07/25/19 at 11:56; Status DC Sevoflurane (Ultane) 60 ml STK-MED ONCE IH ; Start 07/25/19 at 12:46; Stop 07/25/19 at 12:46; Status DC Sodium Chloride 1,000 ml @ 1,000 mls/hr Q1H PRN IV hypotension; Start 07/25/19 at 13:51; Stop 07/25/19 at 19:50; Status DC Albumin Human 200 ml @ 200 mls/hr 1X PRN PRN IV Hypotension Last administered on 07/25/19at 14:51; Start 07/25/19 at 14:00; Stop 07/25/19 at 19:59; Status DC Diphenhydramine HCl (Benadryl) 25 mg 1X PRN PRN IV ITCHING; Start 07/25/19 at 14:00; Stop 07/26/19 at 13:59; Status DC Diphenhydramine HCl (Benadryl) 25 mg 1X PRN PRN IV ITCHING; Start 07/25/19 at 14:00; Stop 07/26/19 at 13:59; Status DC Sodium Chloride 1,000 ml @ 400 mls/hr Q2H30M PRN IV PATENCY; Start 07/25/19 at 13:51; Stop 07/26/19 at 01:50; Status DC Info (PHARMACY MONITORING -- do not chart) 1 each PRN DAILY PRN MC SEE COMMENTS; Start 07/25/19 at 14:00; Stop 07/28/19 at 08:16; Status DC Heparin Sodium (Porcine) (Hep Lock Adult) 500 unit STK-MED ONCE IVP ; Start 07/26/19 at 09:29; Stop 07/26/19 at 09:30; Status DC Sodium Chloride 1,000 ml @ 1,000 mls/hr Q1H PRN IV hypotension; Start 07/26/19 at 10:43; Stop 07/26/19 at 16:42; Status DC Sodium Chloride 1,000 ml @ 400 mls/hr Q2H30M PRN IV PATENCY; Start 07/26/19 at 10:43; Stop 07/26/19 at 22:42; Status DC Info (PHARMACY MONITORING -- do not chart) 1 each PRN DAILY PRN MC SEE COMMENTS; Start 07/26/19 at 10:45; Status UNV Info (PHARMACY MONITORING -- do not chart) 1 each PRN DAILY PRN MC SEE COMMENTS; Start 07/26/19 at 10:45; Status UNV Sodium Chloride 90 meq/Potassium Chloride 15 meq/ Magnesium Sulfate 12 meq/Calcium Gluconate 15 meq/ Multivitamins 10 ml/Chromium/ Copper/Manganese/ Seleni/Zn 0.5 ml/ Insulin Human Regular 25 unit/ Total Parenteral Nutrition/Amino Acids/Dextrose/ Fat Emulsion Intravenous 1,400 ml @ 58.333 mls/ hr TPN CONT IV Last administered on 07/26/19at 22:13; Start 07/26/19 at 22:00; Stop 07/27/19 at 21:59; Status DC Sodium Chloride 1,000 ml @ 1,000 mls/hr Q1H PRN IV hypotension; Start 07/27/19 at 07:50; Stop 07/27/19 at 13:49; Status DC Albumin Human 200 ml @ 200 mls/hr 1X ONCE IV ; Start 07/27/19 at 08:00; Stop 07/27/19 at 08:53; Status DC Diphenhydramine HCl (Benadryl) 25 mg 1X PRN PRN IV ITCHING; Start 07/27/19 at 08:00; Stop 07/28/19 at 07:59; Status DC Diphenhydramine HCl (Benadryl) 25 mg 1X PRN PRN IV ITCHING; Start 07/27/19 at 08:00; Stop 07/28/19 at 07:59; Status DC Info (PHARMACY MONITORING -- do not chart) 1 each PRN DAILY PRN MC SEE COMMENTS; Start 07/27/19 at 08:00; Stop 07/28/19 at 08:16; Status DC Albumin Human 50 ml @ 50 mls/hr 1X ONCE IV ; Start 07/27/19 at 08:53; Stop 07/27/19 at 08:56; Status DC Albumin Human 200 ml @ 50 mls/hr PRN 1X PRN IV HYPOTENSION Last administered on 08/02/19at 11:54; Start 07/27/19 at 09:00; Stop 09/08/19 at 11:14; Status DC Meropenem 500 mg/ Sodium Chloride 50 ml @ 100 mls/hr Q12H IV Last administered on 08/16/19at 10:45; Start 07/27/19 at 10:00; Stop 08/16/19 at 12:37; Status DC Sodium Chloride 90 meq/Magnesium Sulfate 12 meq/ Calcium Gluconate 15 meq/ Multivitamins 10 ml/Chromium/ Copper/Manganese/ Seleni/Zn 0.5 ml/ Insulin Human Regular 25 unit/ Total Parenteral Nutrition/Amino Acids/Dextrose/ Fat Emulsion Intravenous 1,400 ml @ 58.333 mls/ hr TPN CONT IV Last administered on 07/27/19at 21:41; Start 07/27/19 at 22:00; Stop 07/28/19 at 21:59; Status DC Sodium Chloride 1,000 ml @ 1,000 mls/hr Q1H PRN IV hypotension; Start 07/28/19 at 07:58; Stop 07/28/19 at 13:57; Status DC Albumin Human 200 ml @ 200 mls/hr 1X PRN PRN IV Hypotension Last administered on 07/28/19at 09:30; Start 07/28/19 at 08:00; Stop 07/28/19 at 13:59; Status DC Sodium Chloride 1,000 ml @ 400 mls/hr Q2H30M PRN IV PATENCY; Start 07/28/19 at 0 7:58; Stop 07/28/19 at 19:57; Status DC Info (PHARMACY MONITORING -- do not chart) 1 each PRN DAILY PRN MC SEE COMMENTS; Start 07/28/19 at 08:00; Status Cancel Info (PHARMACY MONITORING -- do not chart) 1 each PRN DAILY PRN MC SEE COMMENTS; Start 07/28/19 at 08:15; Status UNV Sodium Chloride 90 meq/Potassium Phosphate 5 mmol/ Magnesium Sulfate 12 meq/Calcium Gluconate 15 meq/ Multivitamins 10 ml/Chromium/ Copper/Manganese/ Seleni/Zn 0.5 ml/ Insulin Human Regular 30 unit/ Total Parenteral Nutrition/Amino Acids/Dextrose/ Fat Emulsion Intravenous 1,400 ml @ 58.333 mls/ hr TPN CONT IV Last administered on 07/28/19at 22:08; Start 07/28/19 at 22:00; Stop 07/29/19 at 21:59; Status DC Linezolid/Dextrose 300 ml @ 300 mls/hr Q12HR IV Last administered on 08/08/19at 20:40; Start 07/29/19 at 11:00; Stop 08/09/19 at 08:10; Status DC Sodium Chloride 90 meq/Potassium Phosphate 15 mmol/ Magnesium Sulfate 12 meq/Calcium Gluconate 15 meq/ Multivitamins 10 ml/Chromium/ Copper/Manganese/ Seleni/Zn 0.5 ml/ Insulin Human Regular 30 unit/ Total Parenteral Nutrition/Amino Acids/Dextrose/ Fat Emulsion Intravenous 1,400 ml @ 58.333 mls/ hr TPN CONT IV Last administered on 07/29/19at 21:49; Start 07/29/19 at 22:00; Stop 07/30/19 at 21:59; Status DC Sodium Chloride 90 meq/Potassium Phosphate 15 mmol/ Magnesium Sulfate 12 meq/Calcium Gluconate 15 meq/ Multivitamins 10 ml/Chromium/ Copper/Manganese/ Seleni/Zn 0.5 ml/ Insulin Human Regular 40 unit/ Total Parenteral Nutrition/Amino Acids/Dextrose/ Fat Emulsion Intravenous 1,400 ml @ 58.333 mls/ hr TPN CONT IV Last administered on 07/30/19at 21:21; Start 07/30/19 at 22:00; Stop 07/31/19 at 21:59; Status DC Sodium Chloride 1,000 ml @ 1,000 mls/hr Q1H PRN IV hypotension; Start 07/30/19 at 13:26; Stop 07/30/19 at 19:25; Status DC Albumin Human 200 ml @ 200 mls/hr 1X PRN PRN IV Hypotension Last administered on 07/30/19at 15:00; Start 07/30/19 at 13:30; Stop 07/30/19 at 19:29; Status DC Sodium Chloride (Normal Saline Flush) 10 ml 1X PRN PRN IV AP catheter pack; Start 07/30/19 at 13:30; Stop 07/31/19 at 13:29; Status DC Sodium Chloride (Normal Saline Flush) 10 ml 1X PRN PRN IV REFORMATORY ATTENDANT catheter pack; Start 07/30/19 at 13:30; Stop 07/31/19 at 13:29; Status DC Sodium Chloride 1,000 ml @ 400 mls/hr Q2H30M PRN IV PATENCY; Start 07/30/19 at 13:26; Stop 07/31/19 at 01:25; Status DC Info (PHARMACY MONITORING -- do not chart) 1 each PRN DAILY PRN MC SEE COMMENTS; Start 07/30/19 at 13:30; Stop 07/30/19 at 13:33; Status DC Info (PHARMACY MONITORING -- do not chart) 1 each PRN DAILY PRN MC SEE CO MMENTS; Start 07/30/19 at 13:30; Stop 07/30/19 at 13:34; Status DC Sodium Chloride 90 meq/Potassium Phosphate 19 mmol/ Magnesium Sulfate 12 meq/Calcium Gluconate 15 meq/ Multivitamins 10 ml/Chromium/ Copper/Manganese/ Seleni/Zn 0.5 ml/ Insulin Human Regular 40 unit/ Total Parenteral Nutrition/Amino Acids/Dextrose/ Fat Emulsion Intravenous 1,400 ml @ 58.333 mls/ hr TPN CONT IV Last administered on 07/31/19at 21:54; Start 07/31/19 at 22:00; Stop 08/01/19 at 21:59; Status DC Sodium Chloride 1,000 ml @ 1,000 mls/hr Q1H PRN IV hypotension; Start 08/01/19 at 09:35; Stop 08/01/19 at 15:34; Status DC Albumin Human 200 ml @ 200 mls/hr 1X PRN PRN IV Hypotension; Start 08/01/19 at 09:45; Stop 08/01/19 at 15:44; Status DC Diphenhydramine HCl (Benadryl) 25 mg 1X PRN PRN IV ITCHING; Start 08/01/19 at 09:45; Stop 08/02/19 at 09:44; Status DC Diphenhydramine HCl (Benadryl) 25 mg 1X PRN PRN IV ITCHING; Start 08/01/19 at 09:45; Stop 08/02/19 at 09:44; Status DC Sodium Chloride 1,000 ml @ 400 mls/hr Q2H30M PRN IV PATENCY; Start 08/01/19 at 09:35; Stop 08/01/19 at 21:34; Status DC Info (PHARMACY MONITORING -- do not chart) 1 each PRN DAILY PRN MC SEE COMMENTS; Start 08/01/19 at 09:45; Status Cancel Sodium Chloride 100 meq/Potassium Phosphate 19 mmol/ Magnesium Sulfate 12 meq/Calcium Gluconate 15 meq/ Multivitamins 10 ml/Chromium/ Copper/Manganese/ Seleni/Zn 0.5 ml/ Insulin Human Regular 40 unit/ Potassium Chloride 20 meq/ Total Parenteral Nutrition/Amino Acids/Dextrose/ Fat Emulsion Intravenous 1,400 ml @ 58.333 mls/ hr TPN CONT IV Last administered on 08/01/19at 22:02; Start 08/01/19 at 22:00; Stop 08/02/19 at 21:59; Status DC Furosemide (Lasix) 40 mg 1X ONCE IVP Last administered on 08/01/19at 14:39; Start 08/01/19 at 14:30; Stop 08/01/19 at 14:31; Status DC Metronidazole 100 ml @ 100 mls/hr Q8HRS IV Last administered on 08/09/19at 06:04; Start 08/02/19 at 10:00; Stop 08/09/19 at 08:10; Status DC Sodium Chloride 1,000 ml @ 1,000 mls/hr Q1H PRN IV hypotension; Start 08/02/19 at 08:00; Stop 08/02/19 at 13:59; Status DC Albumin Human 200 ml @ 200 mls/hr 1X PRN PRN IV Hypotension; Start 08/02/19 at 08:00; Stop 08/02/19 at 13:59; Status DC Sodium Chloride 1,000 ml @ 400 mls/hr Q2H30M PRN IV PATENCY; Start 08/02/19 at 08:00; Stop 08/02/19 at 19:59; Status DC Info (PHARMACY MONITORING -- do not chart) 1 each PRN DAILY PRN MC SEE COMMENTS; Start 08/02/19 at 11:30; Status UNV Info (PHARMACY MONITORING -- do not chart) 1 each PRN DAILY PRN MC SEE COMMENTS; Start 08/02/19 at 11:30; Stop 08/04/19 at 12:13; Status DC Sodium Chloride 100 meq/Potassium Phosphate 19 mmol/ Magnesium Sulfate 12 meq/Calcium Gluconate 15 meq/ Multivitamins 10 ml/Chromium/ Copper/Manganese/ Seleni/Zn 0.5 ml/ Insulin Human Regular 40 unit/ Potassium Chloride 20 meq/ Total Parenteral Nutrition/Amino Acids/Dextrose/ Fat Emulsion Intravenous 1,400 ml @ 58.333 mls/ hr TPN CONT IV Last administered on 08/02/19at 21:52; Start 08/02/19 at 22:00; Stop 08/03/19 at 21:59; Status DC Sodium Chloride (Normal Saline Flush) 10 ml QSHIFT PRN IV AFTER MEDS AND BLOOD DRAWS; Start 08/02/19 at 15:00; Stop 08/30/19 at 11:27; Status DC Sodium Chloride (Normal Saline Flush) 10 ml PRN Q5MIN PRN IV AFTER MEDS AND BLOOD DRAWS; Start 08/02/19 at 15:00 Sodium Chloride (Normal Saline Flush) 20 ml PRN Q5MIN PRN IV AFTER MEDS AND BLOOD DRAWS; Start 08/02/19 at 15:00 Sodium Chloride 100 meq/Potassium Phosphate 19 mmol/ Magnesium Sulfate 12 meq/Calcium Gluconate 15 meq/ Multivitamins 10 ml/Chromium/ Copper/Manganese/ Seleni/Zn 0.5 ml/ Insulin Human Regular 40 unit/ Potassium Chloride 20 meq/ Total Parenteral Nutrition/Amino Acids/Dextrose/ Fat Emulsion Intravenous 1,400 ml @ 58.333 mls/ hr TPN CONT IV Last administered on 08/03/19at 21:20; Start 08/03/19 at 22:00; Stop 08/04/19 at 21:59; Status DC Lidocaine HCl (Buffered Lidocaine 1%) 3 ml STK-MED ONCE .ROUTE ; Start 08/03/19 at 13:16; Stop 08/03/19 at 13:16; Status DC Lidocaine HCl (Buffered Lidocaine 1%) 6 ml 1X ONCE INJ Last administered on 08/03/19at 13:45; Start 08/03/19 at 13:30; Stop 08/03/19 at 13:31; Status DC Albumin Human 100 ml @ 100 mls/hr 1X ONCE IV Last administered on 08/03/19at 15:41; Start 08/03/19 at 15:00; Stop 08/03/19 at 15:59; Status DC Albumin Human 50 ml @ 50 mls/hr 1X ONCE IV Last administered on 08/03/19at 15:00; Start 08/03/19 at 15:00; Stop 08/03/19 at 15:59; Status DC Info (PHARMACY MONITORING -- do not chart) 1 each PRN DAILY PRN MC SEE COMMENTS; Start 08/04/19 at 11:30; Status Cancel Info (PHARMACY MONITORING -- do not chart) 1 each PRN DAILY PRN MC SEE COMMENTS; Start 08/04/19 at 11:30; Status UNV Sodium Chloride 100 meq/Potassium Phosphate 10 mmol/ Magnesium Sulfate 12 meq/Calcium Gluconate 15 meq/ Multivitamins 10 ml/Chromium/ Copper/Manganese/ Seleni/Zn 0.5 ml/ Insulin Human Regular 35 unit/ Potassium Chloride 20 meq/ To anthony Parenteral Nutrition/Amino Acids/Dextrose/ Fat Emulsion Intravenous 1,400 ml @ 58.333 mls/ hr TPN CONT IV Last administered on 08/04/19at 22:10; Start 08/04/19 at 22:00; Stop 08/05/19 at 21:59; Status DC Sodium Chloride 100 meq/Potassium Phosphate 5 mmol/ Magnesium Sulfate 12 meq/Calcium Gluconate 15 meq/ Multivitamins 10 ml/Chromium/ Copper/Manganese/ Seleni/Zn 0.5 ml/ Insulin Human Regular 35 unit/ Potassium Chloride 20 meq/ Total Parenteral Nutrition/Amino Acids/Dextrose/ Fat Emulsion Intravenous 1,400 ml @ 58.333 mls/ hr TPN CONT IV Last administered on 08/05/19at 22:59; Start 08/05/19 at 22:00; Stop 08/06/19 at 21:59; Status DC Sodium Chloride 1,000 ml @ 1,000 mls/hr Q1H PRN IV hypotension; Start 08/06/19 at 08:27; Stop 08/06/19 at 14:26; Status DC Albumin Human 200 ml @ 200 mls/hr 1X PRN PRN IV Hypotension Last administered on 08/06/19at 09:18; Start 08/06/19 at 08:30; Stop 08/06/19 at 14:29; Status DC Sodium Chloride 1,000 ml @ 400 mls/hr Q2H30M PRN IV PATENCY; Start 08/06/19 at 08:27; Stop 08/06/19 at 20:26; Status DC Info (PHARMACY MONITORING -- do not chart) 1 each PRN DAILY PRN MC SEE COMMENTS; Start 08/06/19 at 08:30; Status Cancel Info (PHARMACY MONITORING -- do not chart) 1 each PRN DAILY PRN MC SEE COMMENTS; Start 08/06/19 at 08:30; Stop 08/14/19 at 13:10; Status DC Sodium Chloride 100 meq/Potassium Chloride 40 meq/ Magnesium Sulfate 15 meq/Calcium Gluconate 15 meq/ Multivitamins 10 ml/Chromium/ Copper/Manganese/ Seleni/Zn 0.5 ml/ Insulin Human Regular 35 unit/ Total Parenteral Nutrition/Amino Acids/Dextrose/ Fat Emulsion Intravenous 1,400 ml @ 58.333 mls/ hr TPN CONT IV Last administered on 08/06/19at 22:00; Start 08/06/19 at 22:00; Stop 08/07/19 at 21:59; Status DC Potassium Chloride/Water 100 ml @ 100 mls/hr 1X ONCE IV Last administered on 08/06/19at 17:28; Start 08/06/19 at 14:45; Stop 08/06/19 at 15:44; Status DC Sodium Chloride 100 meq/Potassium Chloride 40 meq/ Magnesium Sulfate 15 meq/Calcium Gluconate 15 meq/ Multivitamins 10 ml/Chromium/ Copper/Manganese/ Seleni/Zn 0.5 ml/ Insulin Human Regular 35 unit/ Total Parenteral Nutrition/Amino Acids/Dextrose/ Fat Emulsion Intravenous 1,400 ml @ 58.333 mls/ hr TPN CONT IV Last administered on 08/07/19at 22:46; Start 08/07/19 at 22:00; Stop 08/08/19 at 21:59; Status DC Sodium Chloride 100 meq/Potassium Chloride 40 meq/ Magnesium Sulfate 20 meq/Calcium Gluconate 15 meq/ Multivitamins 10 ml/Chromium/ Copper/Manganese/ Seleni/Zn 0.5 ml/ Insulin Human Regular 35 unit/ Total Parenteral Nutrition/Amino Acids/Dextrose/ Fat Emulsion Intravenous 1,400 ml @ 58.333 mls/ hr TPN CONT IV Last administered on 08/08/19at 22:31; Start 08/08/19 at 22:00; Stop 08/09/19 at 21:59; Status DC Fentanyl Citrate (Fentanyl 2ml Vial) 50 mcg PRN Q2HR PRN IVP PAIN Last administered on 08/15/19at 13:32; Start 08/08/19 at 21:00; Stop 08/16/19 at 12:53; Status DC Fentanyl Citrate (Fentanyl 2ml Vial) 25 mcg PRN Q2HR PRN IVP PAIN; Start 08/08/19 at 21:00; Stop 08/16/19 at 12:54; Status DC Enoxaparin Sodium (Lovenox 100mg Syringe) 100 mg Q12HR SQ ; Start 08/09/19 at 21:00; Status UNV Amino Acids/ Glycerin/ Electrolytes 1,000 ml @ 75 mls/hr [id number] IV ; Start 08/08/19 at 21:15; Status UNV Sodium Chloride 1,000 ml @ 1,000 mls/hr Q1H PRN IV hypotension; Start 08/09/19 at 07:56; Stop 08/09/19 at 13:55; Status DC Albumin Human 200 ml @ 200 mls/hr 1X PRN PRN IV Hypotension Last administered on 08/09/19at 08:40; Start 08/09/19 at 08:00; Stop 08/09/19 at 13:59; Status DC Sodium Chloride 1,000 ml @ 400 mls/hr Q2H30M PRN IV PATENCY; Start 08/09/19 at 07:56; Stop 08/09/19 at 19:55; Status DC Info (PHARMACY MONITORING -- do not chart) 1 each PRN DAILY PRN MC SEE COMMENTS; Start 08/09/19 at 08:00; Status UNV Info (PHARMACY MONITORING -- do not chart) 1 each PRN DAILY PRN MC SEE COMMENTS; Start 08/09/19 at 08:00; Status UNV Daptomycin 430 mg/ Sodium Chloride 50 ml @ 100 mls/hr Q24H IV Last administered on 08/09/19at 12:35; Start 08/09/19 at 09:00; Stop 08/09/19 at 12:49; Status DC Sodium Chloride 100 meq/Potassium Chloride 40 meq/ Magnesium Sulfate 20 meq/ Calcium Gluconate 15 meq/ Multivitamins 10 ml/Chromium/ Copper/Manganese/ Seleni/Zn 0.5 ml/ Insulin Human Regular 35 unit/ Total Parenteral Nutrition/Amino Acids/Dextrose/ Fat Emulsion Intravenous 1,400 ml @ 58.333 mls/ hr TPN CONT IV Last administered on 08/09/19at 21:26; Start 08/09/19 at 22:00; Stop 08/10/19 at 21:59; Status DC Daptomycin 430 mg/ Sodium Chloride 50 ml @ 100 mls/hr Q48H IV ; Start 08/11/19 at 09:00; Stop 08/10/19 at 11:55; Status DC Sodium Chloride 100 meq/Potassium Chloride 40 meq/ Magnesium Sulfate 20 meq/Calcium Gluconate 15 meq/ Multivitamins 10 ml/Chromium/ Copper/Manganese/ Seleni/Zn 0.5 ml/ Insulin Human Regular 35 unit/ Total Parenteral Nutrition/Amino Acids/Dextrose/ Fat Emulsion Intravenous 1,400 ml @ 58.333 mls/ hr TPN CONT IV Last administered on 08/10/19at 22:27; Start 08/10/19 at 22:00; Stop 08/11/19 at 21:59; Status DC Daptomycin 430 mg/ Sodium Chloride 50 ml @ 100 mls/hr Q24H IV Last administered on 08/12/19at 15:07; Start 08/10/19 at 13:00; Stop 08/13/19 at 13:15; Status DC Sodium Chloride 100 meq/Potassium Chloride 40 meq/ Magnesium Sulfate 20 meq/Calcium Gluconate 10 meq/ Multivitamins 10 ml/Chromium/ Copper/Manganese/ Seleni/Zn 0.5 ml/ Insulin Human Regular 35 unit/ Total Parenteral Nutrition/Amino Acids/Dextrose/ Fat Emulsion Intravenous 1,400 ml @ 58.333 mls/ hr TPN CONT IV Last administered on 08/12/19at 00:06; Start 08/11/19 at 22:00; Stop 08/12/19 at 21:59; Status DC Alteplase, Recombinant (Cathflo For Central Catheter Clearance) 1 mg 1X ONCE INT CAT Last administered on 08/12/19at 11:44; Start 08/12/19 at 10:45; Stop 08/12/19 at 10:46; Status DC Ondansetron HCl (Zofran) 4 mg PRN Q6HRS PRN IV NAUSEA/VOMITING; Start 08/15/19 at 07:00; Stop 08/16/19 at 06:59; Status DC Fentanyl Citrate (Fentanyl 2ml Vial) 25 mcg PRN Q5MIN PRN IV MILD PAIN 1-3; Start 08/15/19 at 07:00; Stop 08/16/19 at 06:59; Status DC Fentanyl Citrate (Fentanyl 2ml Vial) 50 mcg PRN Q5MIN PRN IV MODERATE TO SEVERE PAIN Last administered on 08/15/19at 10:17; Start 08/15/19 at 07:00; Stop 08/16/19 at 06:59; Status DC Ringer's Solution 1,000 ml @ 30 mls/hr Q24H IV ; Start 08/15/19 at 07:00; Stop 08/15/19 at 18:59; Status DC Lidocaine HCl (Xylocaine-Mpf 1% 2ml Vial) 2 ml PRN 1X PRN ID PRIOR TO IV START; Start 08/15/19 at 07:00; Stop 08/16/19 at 06:59; Status DC Prochlorperazine Edisylate (Compazine) 5 mg PACU PRN PRN IV NAUSEA, MRX1; Start 08/15/19 at 07:00; Stop 08/16/19 at 06:59; Status DC Sodium Acetate 50 meq/Potassium Acetate 55 meq/ Magnesium Sulfate 20 meq/Calcium Gluconate 10 meq/ Multivitamins 10 ml/Chromium/ Copper/Manganese/ Seleni/Zn 0.5 ml/ Insulin Human Regular 35 unit/ Total Parenteral Nutrition/Amino Acids/Dextrose/ Fat Emulsion Intravenous 1,400 ml @ 58.333 mls/ hr TPN CONT IV ; Start 08/12/19 at 22:00; Stop 08/12/19 at 14:15; Status DC Sodium Acetate 50 meq/Potassium Acetate 55 meq/ Magnesium Sulfate 20 meq/Calcium Gluconate 10 meq/ Multivitamins 10 ml/Chromium/ Copper/Manganese/ Seleni/Zn 0.5 ml/ Insulin Human Regular 35 unit/ Total Parenteral Nutrition/Amino Acids/D extrose/ Fat Emulsion Intravenous 1,800 ml @ 75 mls/hr TPN CONT IV Last administered on 08/12/19at 22:38; Start 08/12/19 at 22:00; Stop 08/13/19 at 21:59; Status DC Sodium Chloride 1,000 ml @ 1,000 mls/hr Q1H PRN IV hypotension; Start 08/12/19 at 15:31; Stop 08/12/19 at 21:30; Status DC Diphenhydramine HCl (Benadryl) 25 mg 1X PRN PRN IV ITCHING; Start 08/12/19 at 15:45; Stop 08/13/19 at 15:44; Status DC Diphenhydramine HCl (Benadryl) 25 mg 1X PRN PRN IV ITCHING; Start 08/12/19 at 15:45; Stop 08/13/19 at 15:44; Status DC Sodium Chloride 1,000 ml @ 400 mls/hr Q2H30M PRN IV PATENCY; Start 08/12/19 at 15:31; Stop 08/13/19 at 03:30; Status DC Info (PHARMACY MONITORING -- do not chart) 1 each PRN DAILY PRN MC SEE COMMENTS; Start 08/12/19 at 15:45; Stop 09/13/19 at 14:14; Status DC Sodium Acetate 50 meq/Potassium Acetate 55 meq/ Magnesium Sulfate 20 meq/Calcium Gluconate 10 meq/ Multivitamins 10 ml/Chromium/ Copper/Manganese/ Seleni/Zn 0.5 ml/ Insulin Human Regular 35 unit/ Total Parenteral Nutrition/Amino Acids/Dextrose/ Fat Emulsion Intravenous 1,800 ml @ 75 mls/hr TPN CONT IV Last administered on 08/13/19at 22:03; Start 08/13/19 at 22:00; Stop 08/14/19 at 21:59; Status DC Daptomycin 430 mg/ Sodium Chloride 50 ml @ 100 mls/hr Q24H IV Last administ ered on 08/18/19at 13:00; Start 08/13/19 at 13:00; Stop 08/18/19 at 20:58; Status DC Heparin Sodium (Porcine) 1000 unit/Sodium Chloride 1,001 ml @ 1,001 mls/hr 1X ONCE IRR ; Start 08/15/19 at 06:00; Stop 08/15/19 at 06:59; Status DC Potassium Acetate 55 meq/Magnesium Sulfate 20 meq/ Calcium Gluconate 10 meq/ Multivitamins 10 ml/Chromium/ Copper/Manganese/ Seleni/Zn 0.5 ml/ Insulin Human Regular 35 unit/ Total Parenteral Nutrition/Amino Acids/Dextrose/ Fat Emulsion Intravenous 1,920 ml @ 80 mls/hr TPN CONT IV Last administered on 08/14/19at 22:10; Start 08/14/19 at 22:00; Stop 08/15/19 at 21:59; Status DC Dexamethasone Sodium Phosphate (Decadron) 4 mg STK-MED ONCE .ROUTE ; Start 08/15/19 at 10:56; Stop 08/15/19 at 10:57; Status DC Ondansetron HCl (Zofran) 4 mg STK-MED ONCE .ROUTE ; Start 08/15/19 at 10:56; Stop 08/15/19 at 10:57; Status DC Rocuronium [place] (Zemuron) 50 mg STK-MED ONCE .ROUTE ; Start 08/15/19 at 10:56; Stop 08/15/19 at 10:57; Status DC Fentanyl Citrate (Fentanyl 2ml Vial) 100 mcg STK-MED ONCE .ROUTE ; Start 08/15/19 at 10:56; Stop 08/15/19 at 10:57; Status DC Bupivacaine HCl/ Epinephrine Bitart (Sensorcain-Epi 0.5%-1:[id number] Mpf) 30 ml STK-MED ONCE .ROUTE Last administered on 08/15/19at 12:01; Start 08/15/19 at 10:58; Stop 08/15/19 at 10:58; Status DC Cellulose (Surgicel Hemostat 2x14) 1 each STK-MED ONCE .ROUTE ; Start 08/15/19 at 10:58; Stop 08/15/19 at 10:59; Status DC Iohexol (Omnipaque 300 Mg/ml) 50 ml STK-MED ONCE .ROUTE ; Start 08/15/19 at 10:58; Stop 08/15/19 at 10:59; Status DC Cellulose (Surgicel Hemostat 4x8) 1 each STK-MED ONCE .ROUTE ; Start 08/15/19 at 10:58; Stop 08/15/19 at 10:59; Status DC Bisacodyl (Dulcolax Supp) 10 mg STK-MED ONCE .ROUTE ; Start 08/15/19 at 10:59; Stop 08/15/19 at 10:59; Status DC Heparin Sodium (Porcine) 1000 unit/Sodium Chloride 1,001 ml @ 1,001 mls/hr 1X ONCE IRR ; Start 08/15/19 at 12:00; Stop 08/15/19 at 12:59; Status DC Propofol 20 ml @ As Directed STK-MED ONCE IV ; Start 08/15/19 at 11:05; Stop 08/15/19 at 11:05; Status DC Sevoflurane (Ultane) 90 ml STK-MED ONCE IH ; Start 08/15/19 at 11:05; Stop 08/15/19 at 11:05; Status DC Sevoflurane (Ultane) 60 ml STK-MED ONCE IH ; Start 08/15/19 at 12:26; Stop 08/15/19 at 12:27; Status DC Propofol 20 ml @ As Directed STK-MED ONCE IV ; Start 08/15/19 at 12:26; Stop 08/15/19 at 12:27; Status DC Phenylephrine HCl (PHENYLEPHRINE in 0.9% NACL PF) 1 mg STK-MED ONCE IV ; Start 08/15/19 at 12:34; Stop 08/15/19 at 12:34; Status DC Heparin Sodium (Porcine) (Heparin Sodium) 5,000 unit Q12HR SQ Last administered on 08/24/19at 20:57; Start 08/15/19 at 21:00; Stop 08/25/19 at 09:59; Status DC Sodium Chloride (Normal Saline Flush) 3 ml QSHIFT PRN IV AFTER MEDS AND BLOOD DRAWS; Start 08/15/19 at 13:45 Naloxone HCl (Narcan) 0.4 mg PRN Q2MIN PRN IV SEE INSTRUCTIONS Last administered on 09/24/19at 15:15; Start 08/15/19 at 13:45 Sodium Chloride 1,000 ml @ 25 mls/hr Q24H IV Last administered on 09/13/19at 13:37; Start 08/15/19 at 13:37; Stop 09/16/19 at 13:09; Status DC Naloxone HCl (Narcan) 0.4 mg PRN Q2MIN PRN IV SEE INSTRUCTIONS; Start 08/15/19 at 14:30; Status UNV Sodium Chloride 1,000 ml @ 25 mls/hr Q24H IV ; Start 08/15/19 at 14:30; Status UNV Hydromorphone HCl 30 ml @ 0 mls/hr CONT PRN PRN IV PER PROTOCOL Last administered on 08/20/19at 16:08; Start 08/15/19 at 14:30; Stop 08/22/19 at 08:55; Status DC Potassium Acetate 55 meq/Magnesium Sulfate 20 meq/ Calcium Gluconate 10 meq/ Multivitamins 10 ml/Chromium/ Copper/Manganese/ Seleni/Zn 0.5 ml/ Insulin Human Regular 35 unit/ Total Parenteral Nutrition/Amino Acids/Dextrose/ Fat Emulsion Intravenous 1,920 ml @ 80 mls/hr TPN CONT IV Last administered on 08/15/19at 22:01; Start 08/15/19 at 22:00; Stop 08/16/19 at 21:59; Status DC Bumetanide (Bumex) 2 mg [id number] IV Last administered on 08/19/19at 13:50; Start 08/16/19 at 14:00; Stop 08/20/19 at 14:10; Status DC Meropenem 1 gm/ Sodium Chloride 100 ml @ 200 mls/hr Q8HRS IV Last administered on 09/09/19at 05:53; Start 08/16/19 at 14:00; Stop 09/09/19 at 09:31; Status DC Potassium Acetate 55 meq/Magnesium Sulfate 20 meq/ Calcium Gluconate 10 meq/ Multivitamins 10 ml/Chromium/ Copper/Manganese/ Seleni/Zn 0.5 ml/ Insulin Human Regular 35 unit/ Total Parenteral Nutrition/Amino Acids/Dextrose/ Fat Emulsion Intravenous 1,920 ml @ 80 mls/hr TPN CONT IV Last administered on 08/16/19at 22:02; Start 08/16/19 at 22:00; Stop 08/17/19 at 21:59; Status DC Hydromorphone HCl (Dilaudid Standard [employer]AL [employer]CRETARY) 12 mg STK-MED ONCE IV ; Start 08/15/19 at 14:35; Stop 08/16/19 at 13:53; Status DC Artificial Tears (Artificial Tears) 1 drop PRN Q15MIN PRN OU DRY EYE Last administered on 09/16/19at 10:08; Start 08/17/19 at 05:30 Hydromorphone HCl (Dilaudid Standard [employer]IP[employer] SECRETARY) 12 mg STK-MED ONCE IV ; Start 08/16/19 at 12:05; Stop 08/17/19 at 09:15; Status DC Potassium Acetate 65 meq/Magnesium Sulfate 20 meq/ Calcium Gluconate 10 meq/ Multivitamins 10 ml/Chromium/ Copper/Manganese/ Seleni/Zn 0.5 ml/ Insulin Human Regular 30 unit/ Total Parenteral Nutrition/Amino Acids/Dextrose/ Fat Emulsion Intravenous 1,920 ml @ 80 mls/hr TPN CONT IV Last administered on 08/17/19at 22:22; Start 08/17/19 at 22:00; Stop 08/18/19 at 21:59; Status DC Cyclobenzaprine HCl (Flexeril) 10 mg PRN Q6HRS PRN PO MUSCLE SPASMS; Start 08/18/19 at 10:45 Potassium Acetate 55 meq/Magnesium Sulfate 20 meq/ Calcium Gluconate 10 meq/ Multivitamins 10 ml/Chromium/ Copper/Manganese/ Seleni/Zn 0.5 ml/ Insulin Human Regular 30 unit/ Total Parenteral Nutrition/Amino Acids/Dextrose/ Fat Emulsion Intravenous 1,920 ml @ 80 mls/hr TPN CONT IV Last administered on 08/19/19at 01:00; Start 08/18/19 at 22:00; Stop 08/19/19 at 21:59; Status DC Magnesium Sulfate 50 ml @ 25 mls/hr 1X ONCE IV Last administered on 08/18/19at 17:18; Start 08/18/19 at 12:45; Stop 08/18/19 at 14:44; Status DC Potassium Chloride/Water 100 ml @ 100 mls/hr 1X ONCE IV Last administered on 08/19/19at 11:27; Start 08/19/19 at 12:00; Stop 08/19/19 at 12:59; Status DC Hydromorphone HCl (Dilaudid Standard [employer]INCIPAL SECRETARY) 12 mg STK-MED ONCE IV ; Start 08/17/19 at 10:50; Stop 08/19/19 at 11:02; Status DC Hydromorphone HCl (Dilaudid Standard [employer]INCIPAL SECRETARY) 12 mg STK-MED ONCE IV ; Start 08/18/19 at 13:47; Stop 08/19/19 at 11:03; Status DC Potassium Acetate 30 meq/Magnesium Sulfate 20 meq/ Calcium Gluconate 10 meq/ Multivitamins 10 ml/Chromium/ Copper/Manganese/ Seleni/Zn 0.5 ml/ Insulin Human Regular 30 unit/ Potassium Chloride 30 meq/ Total Parenteral Nutrition/Amino Acids/Dextrose/ Fat Emulsion Intravenous 1,920 ml @ 80 mls/hr TPN CONT IV Last administered on 08/19/19at 22:34; Start 08/19/19 at 22:00; Stop 08/20/19 at 21:59; Status DC Potassium Chloride/Water 100 ml @ 100 mls/hr Q1H IV Last administered on 08/20/19at 13:05; Start 08/20/19 at 07:00; Stop 08/20/19 at 10:59; Status DC Magnesium Sulfate 50 ml @ 25 mls/hr 1X ONCE IV Last administered on 08/20/19at 10:34; Start 08/20/19 at 10:30; Stop 08/20/19 at 12:29; Status DC Potassium Chloride 75 meq/ Magnesium Sulfate 20 meq/Calcium Gluconate 10 meq/ Multivitamins 10 ml/Chromium/ Copper/Manganese/ Seleni/Zn 0.5 ml/ Insulin Human Regular 30 unit/ Total Parenteral Nutrition/Amino Acids/Dextrose/ Fat Emulsion Intravenous 1,920 ml @ 80 mls/hr TPN CONT IV Last administered on 08/20/19at 21:51; Start 08/20/19 at 22:00; Stop 08/21/19 at 22:00; Status DC Potassium Chloride 75 meq/ Magnesium Sulfate 20 meq/Calcium Gluconate 10 meq/ Multivitamins 10 ml/Chromium/ Copper/Manganese/ Seleni/Zn 0.5 ml/ Insulin Human Regular 25 unit/ Total Parenteral Nutrition/Amino Acids/Dextrose/ Fat Emulsion Intravenous 1,920 ml @ 80 mls/hr TPN CONT IV Last administered on 08/21/19at 22:04; Start 08/21/19 at 22:00; Stop 08/22/19 at 21:59; Status DC Hydromorphone HCl (Dilaudid) 0.4 mg PRN Q4HRS PRN IVP PAIN Last administered on 08/22/19at 10:57; Start 08/22/19 at 09:00; Stop 08/22/19 at 18:59; Status DC Micafungin Sodium 100 mg/Dextrose 100 ml @ 100 mls/hr Q24H IV Last administered on 09/13/19at 12:17; Start 08/22/19 at 11:00; Stop 09/14/19 at 09:59; Status DC Daptomycin 485 mg/ Sodium Chloride 50 ml @ 100 mls/hr Q24H IV Last a dministered on 08/29/19at 13:10; Start 08/22/19 at 11:00; Stop 08/30/19 at 07:44; Status DC Potassium Chloride 75 meq/ Magnesium Sulfate 15 meq/Calcium Gluconate 8 meq/ Multivitamins 10 ml/Chromium/ Copper/Manganese/ Seleni/Zn 0.5 ml/ Insulin Human Regular 25 unit/ Total Parenteral Nutrition/Amino Acids/Dextrose/ Fat Emulsion Intravenous 1,920 ml @ 80 mls/hr TPN CONT IV Last administered on 08/22/19at 23:08; Start 08/22/19 at 22:00; Stop 08/23/19 at 21:59; Status DC Haloperidol Lactate (Haldol Inj) 3 mg 1X ONCE IVP Last administered on 08/22/19at 14:37; Start 08/22/19 at 14:30; Stop 08/22/19 at 14:31; Status DC Hydromorphone HCl (Dilaudid) 1 mg PRN Q4HRS PRN IVP PAIN Last administered on 09/05/19at 06:25; Start 08/22/19 at 19:00; Stop 09/05/19 at 17:10; Status DC Potassium Chloride 75 meq/ Magnesium Sulfate 15 meq/Calcium Gluconate 8 meq/ Multivitamins 10 ml/Chromium/ Copper/Manganese/ Seleni/Zn 0.5 ml/ Insulin Human Regular 20 unit/ Total Parenteral Nutrition/Amino Acids/Dextrose/ Fat Emulsion Intravenous 1,920 ml @ 80 mls/hr TPN CONT IV Last administered on 08/23/19at 22:10; Start 08/23/19 at 22:00; Stop 08/24/19 at 21:59; Status DC Lidocaine HCl (Buffered Lidocaine 1%) 3 ml STK-MED ONCE .ROUTE ; Start 08/24/19 at 11:31; Stop 08/24/19 at 11:31; Status DC Lidocaine HCl (Buffered Lidocaine 1%) 3 ml STK-MED ONCE .ROUTE ; Start 08/24/19 at 12:28; Stop 08/24/19 at 12:29; Status DC Lidocaine HCl (Buffered Lidocaine 1%) 6 ml 1X ONCE INJ Last administered on 08/24/19at 12:53; Start 08/24/19 at 12:45; Stop 08/24/19 at 12:46; Status DC Potassium Chloride 75 meq/ Magnesium Sulfate 15 meq/Calcium Gluconate 8 meq/ Multivitamins 10 ml/Chromium/ Copper/Manganese/ Seleni/Zn 0.5 ml/ Insulin Human Regular 20 unit/ Total Parenteral Nutrition/Amino Acids/Dextrose/ Fat Emulsion Intravenous 1,920 ml @ 80 mls/hr TPN CONT IV Last administered on 08/24/19at 22:00; Start 08/24/19 at 22:00; Stop 08/25/19 at 21:59; Status DC Potassium Chloride 75 meq/ Magnesium Sulfate 15 meq/Calcium Gluconate 8 meq/ Multivitamins 10 ml/Chromium/ Copper/Manganese/ Seleni/Zn 0.5 ml/ Insulin Human Regular 15 unit/ Total Parenteral Nutrition/Amino Acids/Dextrose/ Fat Emulsion Intravenous 1,920 ml @ 80 mls/hr TPN CONT IV Last administered on 08/25/19at 22:28; Start 08/25/19 at 22:00; Stop 08/26/19 at 21:59; Status DC Vecuronium [place] (Norcuron Bolus) 6 mg PRN Q6HRS PRN IV VENT ASYNCHRONY; Start 08/25/19 at 19:15; Stop 08/25/19 at 19:35; Status DC Bumetanide (Bumex) 2 mg 1X ONCE IV Last administered on 08/25/19at 22:09; Start 08/25/19 at 19:45; Stop 08/25/19 at 19:46; Status DC Lidocaine HCl (Buffered Lidocaine 1%) 3 ml STK-MED ONCE .ROUTE ; Start 08/26/19 at 07:59; Stop 08/26/19 at 07:59; Status DC Midazolam HCl (Versed) 5 mg STK-MED ONCE .ROUTE ; Start 08/26/19 at 08:36; Stop 08/26/19 at 08:36; Status DC Fentanyl Citrate (Fentanyl 5ml Vial) 250 mcg STK-MED ONCE .ROUTE ; Start 08/26/19 at 08:36; Stop 08/26/19 at 08:37; Status DC Lidocaine HCl (Buffered Lidocaine 1%) 3 ml 1X ONCE IJ Last administered on 08/26/19at 09:30; Start 08/26/19 at 09:15; Stop 08/26/19 at 09:16; Status DC Midazolam HCl (Versed) 5 mg 1X ONCE IV Last administered on 08/26/19at 09:30; Start 08/26/19 at 09:15; Stop 08/26/19 at 09:16; Status DC Fentanyl Citrate (Fentanyl 5ml Vial) 250 mcg 1X ONCE IV Last administered on 08/26/19 09:30; Start 08/26/19 at 09:15; Stop 08/26/19 at 09:16; Status DC Bumetanide (Bumex) 2 mg DAILY IV Last administered on 09/05/19at 08:07; Start 08/26/19 at 10:00; Stop 09/05/19 at 17:15; Status DC Potassium Chloride 75 meq/ Magnesium Sulfate 15 meq/ Multivitamins 10 ml/Chromium/ Copper/Manganese/ Seleni/Zn 0.5 ml/ Insulin Human Regular 15 unit/ Total Parenteral Nutrition/Amino Acids/Dextrose/ Fat Emulsion Intravenous 1,920 ml @ 80 mls/hr TPN CONT IV Last administered on 08/26/19at 21:59; Start 08/26/19 at 22:00; Stop 08/27/19 at 21:59; Status DC Metoclopramide HCl (Reglan Vial) 10 mg PRN Q3HRS PRN IVP NAUSEA/VOMITING-3rd choice Last administered on 09/01/19at 04:25; Start 08/27/19 at 16:45 Potassium Chloride 75 meq/ Magnesium Sulfate 15 meq/ Multivitamins 10 ml/Chromium/ Copper/Manganese/ Seleni/Zn 0.5 ml/ Insulin Human Regular 15 unit/ Total Parenteral Nutrition/Amino Acids/Dextrose/ Fat Emulsion Intravenous 1,920 ml @ 80 mls/hr TPN CONT IV Last administered on 08/27/19at 22:41; Start 08/27/19 at 22:00; Stop 08/28/19 at 21:59; Status DC Magnesium Sulfate 50 ml @ 25 mls/hr 1X ONCE IV Last administered on 08/28/19at 10:44; Start 08/28/19 at 09:00; Stop 08/28/19 at 10:59; Status DC Potassium Chloride/Water 100 ml @ 100 mls/hr 1X ONCE IV Last administered on 08/28/19at 09:37; Start 08/28/19 at 09:00; Stop 08/28/19 at 09:59; Status DC Duloxetine HCl (Cymbalta) 30 mg DAILY PO Last administered on 08/29/19at 09:48; Start 08/28/19 at 14:00; Stop 08/31/19 at 10:25; Status DC Potassium Chloride 80 meq/ Magnesium Sulfate 20 meq/ Multivitamins 10 ml/Chromium/ Copper/Manganese/ Seleni/Zn 0.5 ml/ Insulin Human Regular 15 unit/ Total Parenteral Nutrition/Amino Acids/Dextrose/ Fat Emulsion Intravenous 1,920 ml @ 80 mls/hr TPN CONT IV Last administered on 08/28/19at 21:42; Start 08/28/19 at 22:00; Stop 08/29/19 at 21:59; Status DC Potassium Chloride 80 meq/ Magnesium Sulfate 20 meq/ Multivitamins 10 ml/Chromium/ Copper/Manganese/ Seleni/Zn 0.5 ml/ Insulin Human Regular 15 unit/ Total Parenteral Nutrition/Amino Acids/Dextrose/ Fat Emulsion Intravenous 1,920 ml @ 80 mls/hr TPN CONT IV Last administered on 08/29/19at 22:20; Start 08/29/19 at 22:00; Stop 08/30/19 at 21:59; Status DC Lidocaine HCl (Buffered Lidocaine 1%) 3 ml STK-MED ONCE .ROUTE ; Start 08/30/19 at 09:54; Stop 08/30/19 at 09:55; Status DC Hydromorphone HCl (Dilaudid Standard PRINCIPAL SECRETARY) 12 mg STK-MED ONCE IV ; Start 08/19/19 at 15:50; Stop 08/30/19 at 11:24; Status DC Potassium Chloride 80 meq/ Magnesium Sulfate 20 meq/ Multivitamins 10 ml/Chromium/ Copper/Manganese/ Seleni/Zn 0.5 ml/ Insulin Human Regular 15 unit/ Total Parenteral Nutrition/Amino Acids/Dextrose/ Fat Emulsion Intravenous 1,920 ml @ 80 mls/hr TPN CONT IV Last administered on 08/30/19at 21:40; Start 08/30/19 at 22:00; Stop 08/31/19 at 21:59; Status DC Lidocaine HCl (Buffered Lidocaine 1%) 6 ml 1X ONCE INJ Last administered on 08/30/19at 14:15; Start 08/30/19 at 14:15; Stop 08/30/19 at 14:16; Status DC Potassium Chloride 80 meq/ Magnesium Sulfate 20 meq/ Multivitamins 10 ml/Chromium/ Copper/Manganese/ Seleni/Zn 1 ml/ Insulin Human Regular 15 unit/ Total Parenteral Nutrition/Amino Acids/Dextrose/ Fat Emulsion Intravenous 1,920 ml @ 80 mls/hr TPN CONT IV Last administered on 08/31/19at 22:04; Start 08/31/19 at 22:00; Stop 09/01/19 at 21:59; Status DC Potassium Chloride/Water 100 ml @ 100 mls/hr 1X ONCE IV Last administered on 09/01/19at 11:34; Start 09/01/19 at 11:00; Stop 09/01/19 at 11:59; Status DC Potassium Chloride 90 meq/ Magnesium Sulfate 20 meq/ Multivitamins 10 ml/Chromium/ Copper/Manganese/ Seleni/Zn 1 ml/ Insulin Human Regular 15 unit/ Total Parenteral Nutrition/Amino Acids/Dextrose/ Fat Emulsion Intravenous 1,920 ml @ 80 mls/hr TPN CONT IV Last administered on 09/01/19at 22:57; Start 09/01/19 at 22:00; Stop 09/02/19 at 21:59; Status DC Potassium Chloride 90 meq/ Magnesium Sulfate 20 meq/ Multivitamins 10 ml/Chromium/ Copper/Manganese/ Seleni/Zn 1 ml/ Insulin Human Regular 15 unit/ Total Parenteral Nutrition/Amino Acids/Dextrose/ Fat Emulsion Intravenous 1,920 ml @ 80 mls/hr TPN CONT IV Last administered on 09/02/19at 22:48; Start 09/02/19 at 22:00; Stop 09/03/19 at 21:59; Status DC Potassium Chloride 90 meq/ Magnesium Sulfate 20 meq/ Multivitamins 10 ml/Chromium/ Copper/Manganese/ Seleni/Zn 1 ml/ Insulin Human Regular 15 unit/ Total Parenteral Nutrition/Amino Acids/Dextrose/ Fat Emulsion Intravenous 1,890 ml @ 78.75 mls/ hr TPN CONT IV Last administered on 09/03/19at 22:15; Start 09/03/19 at 22:00; Stop 09/04/19 at 21:59; Status DC Linezolid/Dextrose 300 ml @ 300 mls/hr Q12HR IV Last administered on 09/06/19at 21:08; Start 09/04/19 at 09:00; Stop 09/07/19 at 08:11; Status DC Daptomycin 450 mg/ Sodium Chloride 50 ml @ 100 mls/hr Q24H IV Last administered on 09/07/19at 09:25; Start 09/04/19 at 09:00; Stop 09/08/19 at 08:30; Status DC Potassium Chloride 90 meq/ Magnesium Sulfate 20 meq/ Multivitamins 10 ml/Chromium/ Copper/Manganese/ Seleni/Zn 1 ml/ Insulin Human Regular 15 unit/ Total Parenteral Nutrition/Amino Acids/Dextrose/ Fat Emulsion Intravenous 1,890 ml @ 78.75 mls/ hr TPN CONT IV Last administered on 09/04/19at 21:34; Start 09/04/19 at 22:00; Stop 09/05/19 at 21:59; Status DC Lorazepam (Ativan Inj) 2 mg STK-MED ONCE .ROUTE ; Start 09/04/19 at 14:58; Stop 09/04/19 at 14:58; Status DC Metoprolol Tartrate (Lopressor Vial) 5 mg 1X ONCE IVP Last administered on 09/04/19at 15:31; Start 09/04/19 at 15:15; Stop 09/04/19 at 15:16; Status DC Lorazepam (Ativan Inj) 2 mg 1X ONCE IVP Last administered on 09/04/19at 15:30; Start 09/04/19 at 15:15; Stop 09/04/19 at 15:16; Status DC Enoxaparin Sodium (Lovenox 40mg Syringe) 40 mg Q24H SQ Last administered on 09/23/19at 17:44; Start 09/04/19 at 17:00; Stop 09/25/19 at 06:50; Status DC Lorazepam (Ativan Inj) 1 mg PRN Q4HRS PRN IVP ANXIETY / AGITATION MILD-MOD Last administered on 09/18/19at 15:55; Start 09/04/19 at 19:15; Stop 09/20/19 at 11:45; Status DC Lorazepam (Ativan Inj) 2 mg PRN Q4HRS PRN IVP ANXIETY / AGITATION SEVERE Last a dministered on 09/19/19at 07:55; Start 09/04/19 at 19:15; Stop 09/20/19 at 11:45; Status DC Fentanyl Citrate (Fentanyl 2ml Vial) 50 mcg PRN Q4HRS PRN IVP SEVERE PAIN Last administered on 09/27/19at 04:40; Start 09/05/19 at 13:15 Fentanyl Citrate (Fentanyl 2ml Vial) 25 mcg PRN Q4HRS PRN IVP MODERATE PAIN Last administered on 09/28/19at 05:58; Start 09/05/19 at 13:15 Potassium Chloride 90 meq/ Magnesium Sulfate 20 meq/ Multivitamins 10 ml/Chromium/ Copper/Manganese/ Seleni/Zn 1 ml/ Insulin Human Regular 15 unit/ Total Parenteral Nutrition/Amino Acids/Dextrose/ Fat Emulsion Intravenous 1,890 ml @ 78.75 mls/ hr TPN CONT IV Last administered on 09/05/19at 22:18; Start 09/05/19 at 22:00; Stop 09/06/19 at 21:59; Status DC Furosemide (Lasix) 40 mg 1X ONCE IVP Last administered on 09/05/19at 21:51; Start 09/05/19 at 21:45; Stop 09/05/19 at 21:48; Status DC Albumin Human 100 ml @ 100 mls/hr 1X PRN PRN IV SEE COMMENTS; Start 09/06/19 at 01:30 Furosemide (Lasix) 40 mg [id number] IVP Last administered on 09/21/19at 08:04; Start 09/06/19 at 14:00; Stop 09/21/19 at 13:07; Status DC Potassium Chloride 90 meq/ Magnesium Sulfate 20 meq/ Multivitamins 10 ml/Chromium/ Copper/Manganese/ Seleni/Zn 1 ml/ Insulin Human Regular 15 unit/ Total Parenteral Nutrition/Amino Acids/Dextrose/ Fat Emulsion Intravenous 1,800 ml @ 75 mls/hr TPN CONT IV Last administered on 09/06/19at 22:31; Start 09/06/19 at 22:00; Stop 09/07/19 at 21:59; Status DC Potassium Chloride 90 meq/ Magnesium Sulfate 20 meq/ Multivitamins 10 ml/Chromium/ Copper/Manganese/ Seleni/Zn 1 ml/ Insulin Human Regular 15 unit/ Total Parenteral Nutrition/Amino Acids/Dextrose/ Fat Emulsion Intravenous 1,800 ml @ 75 mls/hr TPN CONT IV Last administered on 09/07/19at 22:28; Start 09/07/19 at 22:00; Stop 09/08/19 at 21:59; Status DC Potassium Chloride 110 meq/ Magnesium Sulfate 20 meq/ Multivitamins 10 ml/Chromium/ Copper/Manganese/ Seleni/Zn 1 ml/ Insulin Human Regular 15 unit/ Total Parenteral Nutrition/Amino Acids/Dextrose/ Fat Emulsion Intravenous 1,800 ml @ 75 mls/hr TPN CONT IV Last administered on 09/08/19at 22:01; Start 09/08/19 at 22:00; Stop 09/09/19 at 21:59; Status DC Saliva Substitute (Biotene Moisturizing Mouth) 2 spray PRN Q15MIN PRN PO DRY MOUTH; Start 09/08/19 at 11:00 Potassium Chloride 110 meq/ Magnesium Sulfate 20 meq/ Multivitamins 10 ml/Chromium/ Copper/Manganese/ Seleni/Zn 1 ml/ Insulin Human Regular 15 unit/ Total Parenteral Nutrition/Amino Acids/Dextrose/ Fat Emulsion Intravenous 1,800 ml @ 75 mls/hr TPN CONT IV Last administered on 09/09/19at 22:21; Start 09/09/19 at 22:00; Stop 09/10/19 at 21:59; Status DC Potassium Chloride 110 meq/ Magnesium Sulfate 20 meq/ Multivitamins 10 ml/Chromium/ Copper/Manganese/ Seleni/Zn 1 ml/ Insulin Human Regular 15 unit/ Total Parenteral Nutrition/Amino Acids/Dextrose/ Fat Emulsion Intravenous 1,800 ml @ 75 mls/hr TPN CONT IV Last administered on 09/10/19at 22:04; Start 09/10/19 at 22:00; Stop 09/11/19 at 21:59; Status DC Potassium Chloride 110 meq/ Magnesium Sulfate 20 meq/ Multivitamins 10 ml/Chromium/ Copper/Manganese/ Seleni/Zn 1 ml/ Insulin Human Regular 15 unit/ Total Parenteral Nutrition/Amino Acids/Dextrose/ Fat Emulsion Intravenous 1,800 ml @ 75 mls/hr TPN CONT IV Last administered on 09/11/19at 22:48; Start 09/11/19 at 22:00; Stop 09/12/19 at 21:59; Status DC Potassium Chloride 70 meq/ Magnesium Sulfate 20 meq/ Multivitamins 10 ml/Chromium/ Copper/Manganese/ Seleni/Zn 1 ml/ Insulin Human Regular 15 unit/ Total Parenteral Nutrition/Amino Acids/Dextrose/ Fat Emulsion Intravenous 1,800 ml @ 75 mls/hr TPN CONT IV Last administered on 09/12/19at 21:39; Start 09/12/19 at 22:00; Stop 09/13/19 at 21:59; Status DC Meropenem 500 mg/ Sodium Chloride 50 ml @ 100 mls/hr Q6HRS IV Last administered on 09/14/19at 06:02; Start 09/12/19 at 18:00; Stop 09/14/19 at 09:59; Status DC Barium Sulfate (Varibar Thin Liquid Apple) 148 gm 1X ONCE PO ; Start 09/13/19 at 11:45; Stop 09/13/19 at 11:49; Status DC Potassium Chloride 70 meq/ Magnesium Sulfate 20 meq/ Multivitamins 10 ml/Chromium/ Copper/Manganese/ Seleni/Zn 1 ml/ Insulin Human Regular 15 unit/ Total Parenteral Nutrition/Amino Acids/Dextrose/ Fat Emulsion Intravenous 1,800 ml @ 75 mls/hr TPN CONT IV Last administered on 09/13/19at 22:27; Start 09/13/19 at 22:00; Stop 09/14/19 at 21:59; Status DC Piperacillin Sod/ Tazobactam Sod 3.375 gm/Sodium Chloride 50 ml @ 100 mls/hr Q6HRS IV Last administered on 09/22/19at 06:10; Start 09/14/19 at 12:00; Stop 09/22/19 at 07:26; Status DC Potassium Chloride 70 meq/ Magnesium Sulfate 20 meq/ Multivitamins 10 ml/Chromium/ Copper/Manganese/ Seleni/Zn 1 ml/ Insulin Human Regular 15 unit/ Total Parenteral Nutrition/Amino Acids/Dextrose/ Fat Emulsion Intravenous 1,800 ml @ 75 mls/hr TPN CONT IV Last administered on 09/14/19at 22:03; Start 09/14/19 at 22:00; Stop 09/15/19 at 21:59; Status DC Potassium Chloride 70 meq/ Magnesium Sulfate 20 meq/ Multivitamins 10 ml/Chromium/ Copper/Manganese/ Seleni/Zn 1 ml/ Insulin Human Regular 15 unit/ Total Parenteral Nutrition/Amino Acids/Dextrose/ Fat Emulsion Intravenous 1,800 ml @ 75 mls/hr TPN CONT IV Last administered on 09/15/19at 22:33; Start 09/15/19 at 22:00; Stop 09/16/19 at 21:59; Status DC Potassium Chloride 70 meq/ Magnesium Sulfate 20 meq/ Multivitamins 10 ml/Chromium/ Copper/Manganese/ Seleni/Zn 1 ml/ Insulin Human Regular 15 unit/ Total Parenteral Nutrition/Amino Acids/Dextrose/ Fat Emulsion Intravenous 1,800 ml @ 75 mls/hr TPN CONT IV Last administered on 09/16/19at 23:13; Start 09/16/19 at 22:00; Stop 09/17/19 at 21:59; Status DC Potassium Chloride 80 meq/ Magnesium Sulfate 20 meq/ Multivitamins 10 ml/Chromium/ Copper/Manganese/ Seleni/Zn 1 ml/ Insulin Human Regular 15 unit/ Total Parenteral Nutrition/Amino Acids/Dextrose/ Fat Emulsion Intravenous 1,800 ml @ 75 mls/hr TPN CONT IV Last administered on 09/17/19at 22:30; Start 09/16 at 22:00; Stop 09/18/19 at 21:59; Status DC Potassium Chloride 80 meq/ Magnesium Sulfate 20 meq/ Multivitamins 10 ml/Chromi um/ Copper/Manganese/ Seleni/Zn 1 ml/ Insulin Human Regular 15 unit/ Total Parenteral Nutrition/Amino Acids/Dextrose/ Fat Emulsion Intravenous 1,800 ml @ 75 mls/hr TPN CONT IV Last administered on 09/18/19at 21:54; Start 09/18/19 at 22:00; Stop 09/19/19 at 21:59; Status DC Potassium Chloride/Water 100 ml @ 100 mls/hr 1X ONCE IV Last administered on 09/19/19at 10:15; Start 09/19/19 at 10:00; Stop 09/19/19 at 10:59; Status DC Potassium Chloride 90 meq/ Magnesium Sulfate 20 meq/ Multivitamins 10 ml/Chromium/ Copper/Manganese/ Seleni/Zn 1 ml/ Insulin Human Regular 20 unit/ Total Parenteral Nutrition/Amino Acids/Dextrose/ Fat Emulsion Intravenous 1,800 ml @ 75 mls/hr TPN CONT IV Last administered on 09/19/19at 22:28; Start 09/19/19 at 22:00; Stop 09/20/19 at 21:59; Status DC Potassium Chloride 90 meq/ Magnesium Sulfate 20 meq/ Multivitamins 10 ml/Chromium/ Copper/Manganese/ Seleni/Zn 1 ml/ Insulin Human Regular 20 unit/ Total Parenteral Nutrition/Amino Acids/Dextrose/ Fat Emulsion Intravenous 1,800 ml @ 75 mls/hr TPN CONT IV Last administered on 09/20/19at 22:08; Start 09/20/19 at 22:00; Stop 09/21/19 at 21:59; Status DC Lorazepam (Ativan Inj) 0.25 mg PRN Q4HRS PRN IVP ANXIETY / AGITATION Last administered on 09/27/19at 03:31; Start 09/21/19 at 07:30 Potassium Chloride 90 meq/ Magnesium Sulfate 20 meq/ Multivitamins 10 ml/Chromium/ Copper/Manganese/ Seleni/Zn 1 ml/ Insulin Human Regular 20 unit/ Total Parenteral Nutrition/Amino Acids/Dextrose/ Fat Emulsion Intravenous 1,800 ml @ 75 mls/hr TPN CONT IV Last administered on 09/21/19at 23:13; Start 09/21/19 at 22:00; Stop 09/22/19 at 21:59; Status DC Furosemide (Lasix) 40 mg DAILY IVP Last administered on 09/23/19at 11:14; Start 09/21/19 at 13:30; Stop 09/25/19 at 09:12; Status DC Fluoxetine HCl (PROzac) 20 mg QHS PEG Last administered on 09/27/19at 22:02; Start 09/22/19 at 21:00 Fentanyl (Duragesic 50mcg/ Hr Patch) 1 patch Q72H TD Last administered on 09/22/19at 21:22; Start 09/22/19 at 21:00 Potassium Chloride 40 meq/ Potassium Acetate 60 meq/Magnesium Sulfate 10 meq/ Multivitamins 10 ml/Chromium/ Copper/Manganese/ Seleni/Zn 1 ml/ Insulin Human Regular 20 unit/ Total Parenteral Nutrition/Amino Acids/Dextrose/ Fat Emulsion Intravenous 1,800 ml @ 75 mls/hr TPN CONT IV Last administered on 09/23/19at 00:03; Start 09/22/19 at 22:00; Stop 09/23/19 at 21:59; Status DC Potassium Acetate 80 meq/Magnesium Sulfate 5 meq/ Multivitamins 10 ml/Chromium/ Copper/Manganese/ Seleni/Zn 1 ml/ Insulin Human Regular 20 unit/ Total Parenteral Nutrition/Amino Acids/Dextrose/ Fat Emulsion Intravenous 1,920 ml @ 80 mls/hr TPN CONT IV Last administered on 09/23/19at 21:59; Start 09/23/19 at 22:00; Stop 09/24/19 at 21:59; Status DC Potassium Acetate 60 meq/Magnesium Sulfate 5 meq/ Multivitamins 10 ml/Chromium/ Copper/Manganese/ Seleni/Zn 1 ml/ Insulin Human Regular 30 unit/ Total Parenteral Nutrition/Amino Acids/Dextrose/ Fat Emulsion Intravenous 1,920 ml @ 80 mls/hr TPN CONT IV Last administered on 09/24/19at 21:54; Start 09/24/19 at 22:00; Stop 09/25/19 at 21:59; Status DC Norepinephrine Bitartrate 8 mg/ Dextrose 258 ml @ 13.332 mls/ hr CONT PRN IV PER PROTOCOL Last administered on 09/25/19at 21:46; Start 09/25/19 at 06:30 Albumin Human 500 ml @ 125 mls/hr 1X ONCE IV Last administered on 09/25/19at 08:10; Start 09/25/19 at 08:15; Stop 09/25/19 at 12:14; Status DC Potassium Acetate 40 meq/Magnesium Sulfate 5 meq/ Multivitamins 10 ml/Chromium/ Copper/Manganese/ Seleni/Zn 1 ml/ Insulin Human Regular 30 unit/ Total Parenteral Nutrition/Amino Acids/Dextrose/ Fat Emulsion Intravenous 1,920 ml @ 80 mls/hr TPN CONT IV Last administered on 09/25/19at 22:23; Start 09/25/19 at 22:00; Stop 09/26/19 at 21:59; Status DC Meropenem 1 gm/ Sodium Chloride 100 ml @ 200 mls/hr Q8HRS IV ; Start 09/25/19 at 14:00; Status Cancel Meropenem 1 gm/ Sodium Chloride 100 ml @ 200 mls/hr Q8HRS IV Last administered on 09/25/19at 11:04; Start 09/25/19 at 10:00; Stop 09/25/19 at 13:00; Status DC Meropenem 1 gm/ Sodium Chloride 100 ml @ 200 mls/hr Q12HR IV Last administered on 09/27/19at 22:02; Start 09/25/19 at 21:00 Sodium Chloride 1,000 ml @ 1,000 mls/hr 1X ONCE IV Last administered on 09/25/19at 11:06; Start 09/25/19 at 10:45; Stop 09/25/19 at 11:44; Status DC Micafungin Sodium 100 mg/Dextrose 100 ml @ 100 mls/hr Q24H IV Last administered on 09/27/19at 12:02; Start 09/25/19 at 11:00 Daptomycin 410 mg/ Sodium Chloride 50 ml @ 100 mls/hr Q24H IV Last administered on 09/27/19at 13:33; Start 09/25/19 at 14:00 Midazolam HCl (Versed) 2 mg STK-MED ONCE .ROUTE ; Start 09/25/19 at 14:47; Stop 09/25/19 at 14:48; Status DC Fentanyl Citrate (Fentanyl 2ml Vial) 100 mcg STK-MED ONCE .ROUTE ; Start 09/25/19 at 14:47; Stop 09/25/19 at 14:48; Status DC Flumazenil (Romazicon) 0.5 mg STK-MED ONCE IV ; Start 09/25/19 at 14:48; Stop 09/25/19 at 14:48; Status DC Naloxone HCl (Narcan) 0.4 mg STK-MED ONCE .ROUTE ; Start 09/25/19 at 14:48; Stop 09/25/19 at 14:48; Status DC Lidocaine HCl (Lidocaine 1% 20ml Vial) 20 ml STK-MED ONCE .ROUTE ; Start 09/25/19 at 14:48; Stop 09/25/19 at 14:48; Status DC Midazolam HCl (Versed) 2 mg 1X ONCE IV Last administered on 09/25/19at 15:28; S tart 09/25/19 at 15:00; Stop 09/25/19 at 15:01; Status DC Fentanyl Citrate (Fentanyl 2ml Vial) 100 mcg 1X ONCE IV Last administered on 09/25/19at 15:28; Start 09/25/19 at 15:00; Stop 09/25/19 at 15:01; Status DC Lidocaine HCl (Lidocaine 1% 20ml Vial) 20 ml 1X ONCE INJ Last administered on 09/25/19at 15:30; Start 09/25/19 at 15:00; Stop 09/25/19 at 15:01; Status DC Sodium Chloride 1,000 ml @ 100 mls/hr Q10H IV Last administered on 09/28/19at 05:11; Start 09/25/19 at 20:00 Sodium Bicarbonate (Sodium Bicarb Adult 8.4% Syr) 50 meq 1X ONCE IV Last administered on 09/25/19at 21:47; Start 09/25/19 at 22:00; Stop 09/25/19 at 22:01; Status DC Potassium Acetate 40 meq/Magnesium Sulfate 5 meq/ Multivitamins 10 ml/Chromium/ Copper/Manganese/ Seleni/Zn 1 ml/ Insulin Human Regular 30 unit/ Total Parenteral Nutrition/Amino Acids/Dextrose/ Fat Emulsion Intravenous 1,920 ml @ 80 mls/hr TPN CONT IV Last administered on 09/26/19at 22:28; Start 09/26/19 at 22:00; Stop 09/27/19 at 21:59; Status DC Sodium Chloride 500 ml @ 500 mls/hr 1X ONCE IV Last administered on 09/27/19at 06:39; Start 09/27/19 at 06:45; Stop 09/27/19 at 07:44; Status DC Potassium Acetate 40 meq/Magnesium Sulfate 5 meq/ Multivitamins 10 ml/Chromium/ Copper/Manganese/ Seleni/Zn 1 ml/ Insulin Human Regular 30 unit/ Total Parenteral Nutrition/Amino Acids/Dextrose/ Fat Emulsion Intravenous 1,920 ml @ 80 mls/hr TPN CONT IV Last administered on 09/27/19at 22:03; Start 09/27/19 at 22:00; Stop 09/28/19 at 21:59 Active Scripts Active Reported Bisoprolol Fumarate 5 Mg Tablet 10 Mg PO DAILY Vitals/I & O Vital Sign - Last 24 Hours 09/27/19 09/27/19 09/27/19 09/27/19 07:57 08:00 08:31 09:00 Temp 99.5 99.5 Pulse 144 137 Resp 49 49 B/P (MAP) 142/74 (96) 136/75 (95) Pulse Ox 95 95 96 O2 Delivery Trach Collar Tracheal Collar Tracheal Collar Tracheal Collar O2 Flow Rate 10.0 10.0 10.0 10.0 09/27/19 09/27/19 09/27/19 09/27/19 09:16 09:51 10:00 11:00 Pulse 137 128 Resp 56 50 44 36 B/P (MAP) 160/81 (107) 132/73 (92) Pulse Ox 96 96 98 100 O2 Delivery Tracheal Collar Tracheal Collar Tracheal Collar Tracheal Collar O2 Flow Rate 10.0 10.0 10.0 10.0 09/27/19 09/27/19 09/27/19 09/27/19 12:00 12:00 13:00 13:14 Temp 99.0 99.0 Pulse 124 128 Resp 34 36 32 B/P (MAP) 138/78 (98) 134/68 (90) Pulse Ox 100 95 100 O2 Delivery Tracheal Collar Trach Collar Tracheal Collar Tracheal Collar O2 Flow Rate 10.0 10.0 10.0 09/27/19 09/27/19 09/27/19 09/27/19 13:47 14:00 15:00 16:00 Pulse 145 142 Resp 60 60 B/P (MAP) 151/68 (95) 186/85 (118) Pulse Ox 100 91 93 O2 Delivery Tracheal Collar Tracheal Collar Tracheal Collar Trach Collar O2 Flow Rate 10.0 10.0 10.0 10.0 09/27/19 09/27/19 09/27/19 09/27/19 16:00 17:00 17:51 18:00 Temp 99.2 99.2 Pulse 136 136 133 Resp 45 46 42 B/P (MAP) 143/79 (100) 165/87 (113) 147/77 (100) Pulse Ox 98 97 93 91 O2 Delivery Tracheal Collar Tracheal Collar Nasal Cannula Nasal Cannula O2 Flow Rate 10.0 10.0 4.0 4.0 09/27/19 09/27/19 09/27/19 09/27/19 18:21 19:00 20:00 20:00 Temp 97.7 97.7 Pulse 133 131 Resp 48 47 42 B/P (MAP) 157/74 (101) 153/78 (103) Pulse Ox 91 98 98 O2 Delivery Tracheal Collar Tracheal Collar Tracheal Collar Trach Collar O2 Flow Rate 10.0 10.0 10.0 10.0 09/27/19 09/27/19 09/27/19 09/28/19 21:00 22:00 23:00 00:00 Pulse 128 128 130 Resp 37 38 36 B/P (MAP) 152/74 (100) 160/80 (106) 162/76 (104) Pulse Ox 100 100 100 O2 Delivery Tracheal Collar Tracheal Collar Tracheal Collar Trach Collar O2 Flow Rate 10.0 10.0 10.0 10.0 09/28/19 09/28/19 09/28/19 09/28/19 00:00 01:00 02:00 03:00 Temp 98.8 98.8 Pulse 132 135 134 130 Resp 39 47 43 44 B/P (MAP) 165/85 (111) 170/86 (114) 169/79 (109) 164/75 (104) Pulse Ox 98 97 96 100 O2 Delivery Tracheal Collar Tracheal Collar Tracheal Collar Tracheal Collar O2 Flow Rate 10.0 10.0 10.0 10.0 09/28/19 09/28/19 09/28/19 09/28/19 04:00 04:00 05:00 06:00 Temp 97.8 97.8 Pulse 128 128 128 Resp 33 43 34 B/P (MAP) 138/68 (91) 172/79 (110) 147/64 (91) Pulse Ox 99 97 100 O2 Delivery Trach Collar Tracheal Collar Tracheal Collar Tracheal Collar O2 Flow Rate 10.0 10.0 10.0 10.0 09/28/19 07:00 Pulse 126 Resp 28 B/P (MAP) 169/78 (108) Pulse Ox 100 O2 Delivery Tracheal Collar O2 Flow Rate 10.0 Intake and Output 09/27/19 09/27/19 09/28/19 15:00 23:00 07:00 Intake Total 2396 ml 2100 ml Output Total 1205 ml 1060 ml 965 ml Balance -1205 ml 1336 ml 1135 ml Hemodynamically unstable?: No Is patient in severe pain?: No Is NPO status required?: No DAVIN LANDEROS MD Sep 28, 2019 07:23
--- NOTE | 2019-09-28 08:13 | PDOC ---
Infectious Disease Note Subjective: Subjective Patient off pressors still weak,anxious has some abdo pain tachycardic, on trach shield blood stained drainage from drains no fevers last 24 hrs Vital Signs: Vital Signs Vital Signs Date Time Temp Pulse Resp B/P (MAP) Pulse Ox O2 Delivery O2 Flow Rate FiO2 09/28/19 07:00 126 28 169/78 (108) 100 Tracheal Collar 10.0 09/28/19 04:00 97.8 97.8 Physical Exam: PHYSICAL EXAM GENERAL: Alert, awake, still lethargic HEENT: NGT in place. Oral mucosa dry NECK: Tracheostomy LUNGS: Diminished aeration bases, no accessory muscle use HEART: S1, S2, tachy, regular ABDOMEN: Mild distention, bowel sounds present, soft, grimaces to palpation Right lateral side drainage bag, 3 drains with bloodstained drainage : Lind ( 09/24) EXTREMITIES: Trace edema .no cyanosis SKIN: no signs of gen rash [employer] M[employer]INE [employer]ATOR: Lethargic opens eyes, nods yes or no, still very weak LUE-PICC (09/15) without signs of complications Medications: Inpatient Meds: Current Medications Medications (Trade) Dose Ordered Sig/Yvon Start Time Stop Time Status Last Admin Dose Admin Acetaminophen (Tylenol Supp) 650 mg PRN Q6HRS PRN 07/12/19 10:30 09/25/19 14:41 650 MG Acetaminophen (Tylenol) 650 mg PRN Q6HRS PRN 07/09/19 03:36 08/31/19 10:25 DC 08/04/19 19:56 650 MG Albumin Human 500 ml @ 125 mls/hr 1X ONCE 09/25/19 08:15 09/25/19 12:14 DC 09/25/19 08:10 125 MLS/HR Albuterol Sulfate (Ventolin Neb Soln) 2.5 mg 1X ONCE 07/05/19 22:30 07/05/19 22:31 DC 07/06/19 00:56 2.5 MG Alteplase, Recombinant (Cathflo For Central Catheter Clearance) 1 mg 1X ONCE 08/12/19 10:45 08/12/19 10:46 DC 08/12/19 11:44 1 MG Amino Acids/ Glycerin/ Electrolytes 1,000 ml @ 75 mls/hr [id number] 08/08/19 21:15 UNV Artificial Tears (Artificial Tears) 1 drop PRN Q15MIN PRN 08/17/19 05:30 09/16/19 10:08 1 DROP Atenolol (Tenormin) 100 mg DAILY 07/05/19 09:00 07/04/19 20:08 DC Atropine Sulfate (ATROPINE 0.5mg SYRINGE) 0.5 mg PRN Q5MIN PRN 07/21/19 08:15 Barium Sulfate (Varibar Thin Liquid Apple) 148 gm 1X ONCE 09/13/19 11:45 09/13/19 11:49 DC Benzocaine (Hurricaine One) 1 spray 1X ONCE 07/08/19 14:30 07/08/19 14:31 DC 07/08/19 16:38 1 SPRAY Bisacodyl (Dulcolax Supp) 10 mg STK-MED ONCE 08/15/19 10:59 08/15/19 10:59 DC Bumetanide (Bumex) 2 mg DAILY 08/26/19 10:00 09/05/19 17:15 DC 09/05/19 08:07 2 MG Bupivacaine HCl/ Epinephrine Bitart (Sensorcain-Epi 0.5%-1:136456 Mpf) 30 ml STK-MED ONCE 08/15/19 10:58 08/15/19 10:58 DC 08/15/19 12:01 7 ML Calcium Carbonate/ Glycine (Tums) 500 mg PRN AFTMEALHC PRN 07/06/19 17:45 08/31/19 10:25 DC Calcium Chloride 1000 mg/Sodium Chloride 110 ml @ 220 mls/hr 1X ONCE 07/05/19 22:30 07/05/19 22:59 DC 07/05/19 22:11 220 MLS/HR Calcium Chloride 3000 mg/Sodium Chloride 1,030 ml @ 50 mls/hr [id number] 07/07/19 08:00 07/09/19 15:23 DC 07/09/19 02:17 50 MLS/HR Calcium Gluconate (Calcium Gluconate) 2,000 mg 1X ONCE 07/07/19 02:15 07/07/19 02:16 DC 07/07/19 02:19 2,000 MG Calcium Gluconate 1000 mg/Sodium Chloride 110 ml @ 220 mls/hr 1X ONCE 07/06/19 03:30 07/06/19 03:59 DC 07/06/19 03:21 220 MLS/HR Calcium Gluconate 2000 mg/Sodium Chloride 120 ml @ 220 mls/hr 1X ONCE 07/06/19 07:30 07/06/19 08:02 DC 07/06/19 09:05 220 MLS/HR Cefepime HCl (Maxipime) 2 gm Q12HR 07/13/19 09:00 07/27/19 09:58 DC 07/26/19 20:56 2 GM Cellulose (Surgicel Fibrillar 1x2) 1 each STK-MED ONCE 07/25/19 11:00 07/25/19 11:01 DC Cellulose (Surgicel Hemostat 2x14) 1 each STK-MED ONCE 08/15/19 10:58 08/15/19 10:59 DC Cellulose (Surgicel Hemostat 4x8) 1 each STK-MED ONCE 08/15/19 10:58 08/15/19 10:59 DC Cyclobenzaprine HCl (Flexeril) 10 mg PRN Q6HRS PRN 08/18/19 10:45 Daptomycin 410 mg/ Sodium Chloride 50 ml @ 100 mls/hr Q24H 09/25/19 14:00 09/27/19 13:33 100 MLS/HR Daptomycin 430 mg/ Sodium Chloride 50 ml @ 100 mls/hr Q24H 08/13/19 13:00 08/18/19 20:58 DC 08/18/19 13:00 100 MLS/HR Daptomycin 450 mg/ Sodium Chloride 50 ml @ 100 mls/hr Q24H 09/04/19 09:00 09/08/19 08:30 DC 09/07/19 09:25 100 MLS/HR Daptomycin 485 mg/ Sodium Chloride 50 ml @ 100 mls/hr Q24H 08/22/19 11:00 08/30/19 07:44 DC 08/29/19 13:10 100 MLS/HR Daptomycin 500 mg/ Sodium Chloride 50 ml @ 100 mls/hr Q48H 07/13/19 08:30 07/29/19 10:07 DC 07/29/19 09:57 100 MLS/HR Dexamethasone Sodium Phosphate (Decadron) 4 mg STK-MED ONCE 08/15/19 10:56 08/15/19 10:57 DC Dexmedetomidine HCl 400 mcg/ Sodium Chloride 100 ml @ 0 mls/hr CONT PRN 07/21/19 08:15 09/17/19 18:31 DC 09/17/19 12:57 8 MLS/HR Dextrose (Dextrose 50%-Water Syringe) 12.5 gm PRN Q15MIN PRN 07/04/19 09:30 Digoxin (Lanoxin) 125 mcg 1X ONCE 07/07/19 18:00 07/07/19 18:01 DC 07/07/19 17:10 125 MCG Diphenhydramine HCl (Benadryl) 25 mg 1X PRN PRN 08/12/19 15:45 08/13/19 15:44 DC Duloxetine HCl (Cymbalta) 30 mg DAILY 08/28/19 14:00 08/31/19 10:25 DC 08/29/19 09:48 30 MG Enoxaparin Sodium (Lovenox 100mg Syringe) 100 mg Q12HR 08/09/19 21:00 UNV Enoxaparin Sodium (Lovenox 40mg Syringe) 40 mg Q24H 09/04/19 17:00 09/25/19 06:50 DC 09/23/19 17:44 40 MG Etomidate (Amidate) 8 mg 1X ONCE 07/11/19 08:30 07/11/19 08:31 DC 07/11/19 08:33 8 MG Fentanyl (Duragesic 50mcg/ Hr Patch) 1 patch Q72H 09/22/19 21:00 09/22/19 21:22 1 PATCH Fentanyl Citrate (Fentanyl 2ml Vial) 100 mcg 1X ONCE 09/25/19 15:00 09/25/19 15:01 DC 09/25/19 15:28 50 MCG Fentanyl Citrate (Fentanyl 5ml Vial) 250 mcg 1X ONCE 08/26/19 09:15 08/26/19 09:16 DC 08/26/19 09:30 50 MCG Flumazenil (Romazicon) 0.5 mg STK-MED ONCE 09/25/19 14:48 09/25/19 14:48 DC Fluoxetine HCl (PROzac) 20 mg QHS 09/22/19 21:00 09/27/19 22:02 20 MG Furosemide (Lasix) 40 mg DAILY 09/21/19 13:30 09/25/19 09:12 DC 09/23/19 11:14 40 MG Haloperidol Lactate (Haldol Inj) 3 mg 1X ONCE 08/22/19 14:30 08/22/19 14:31 DC 08/22/19 14:37 3 MG Heparin Sodium (Porcine) (Hep Lock Adult) 500 unit STK-MED ONCE 07/26/19 09:29 07/26/19 09:30 DC Heparin Sodium (Porcine) (Heparin Sodium) 5,000 unit Q12HR 08/15/19 21:00 08/25/19 09:59 DC 08/24/19 20:57 5,000 UNIT Heparin Sodium (Porcine) 1000 unit/Sodium Chloride 1,001 ml @ 1,001 mls/hr 1X ONCE 08/15/19 12:00 08/15/19 12:59 DC Hydromorphone HCl (Dilaudid Standard STORM SASH MAKER) 12 mg STK-MED ONCE 08/19/19 15:50 08/30/19 11:24 DC Hydromorphone HCl (Dilaudid) 1 mg PRN Q4HRS PRN 08/22/19 19:00 09/05/19 17:10 DC 09/05/19 06:25 1 MG Info (CONTRAST GIVEN -- Rx MONITORING) 1 each PRN DAILY PRN 07/18/19 11:45 07/20/19 11:44 DC Info (Icu Electrolyte Protocol) 1 ea CONT PRN PRN 07/17/19 13:15 Info (PHARMACY MONITORING -- do not chart) 1 each PRN DAILY PRN 08/12/19 15:45 09/13/19 14:14 DC Info (Tpn Per Pharmacy) 1 each PRN DAILY PRN 07/06/19 12:30 UNV Insulin Human Lispro (HumaLOG) 0-9 UNITS Q6HRS 07/04/19 09:30 09/28/19 05:56 4 UNITS Insulin Human Regular (HumuLIN R VIAL) 5 unit 1X ONCE 07/05/19 22:30 07/05/19 22:31 DC 07/05/19 22:14 5 UNIT Iohexol (Omnipaque 240 Mg/ml) 30 ml 1X ONCE 07/18/19 11:30 07/18/19 11:33 DC 07/18/19 11:30 30 ML Iohexol (Omnipaque 300 Mg/ml) 50 ml STK-MED ONCE 08/15/19 10:58 08/15/19 10:59 DC Iohexol (Omnipaque 350 Mg/ml) 90 ml 1X ONCE 07/04/19 03:30 07/04/19 03:31 DC 07/04/19 03:25 90 ML Ketorolac Tromethamine (Toradol 30mg Vial) 30 mg 1X ONCE 07/04/19 03:00 07/04/19 03:01 DC 07/04/19 02:54 30 MG Lidocaine HCl (Buffered Lidocaine 1%) 6 ml 1X ONCE 08/30/19 14:15 08/30/19 14:16 DC 08/30/19 14:15 3 ML Lidocaine HCl (Glydo (Lidocaine) Jelly) 1 ramu 1X ONCE 07/08/19 14:30 07/08/19 14:31 DC 07/08/19 16:38 1 RAMU Lidocaine HCl (Lidocaine 1% 20ml Vial) 20 ml 1X ONCE 09/25/19 15:00 09/25/19 15:01 DC 09/25/19 15:30 20 ML Lidocaine HCl (Xylocaine-Mpf 1% 2ml Vial) 2 ml PRN 1X PRN 08/15/19 07:00 08/16/19 06:59 DC Linezolid/Dextrose 300 ml @ 300 mls/hr Q12HR 09/04/19 09:00 09/07/19 08:11 DC 09/06/19 21:08 300 MLS/HR Lorazepam (Ativan Inj) 0.25 mg PRN Q4HRS PRN 09/21/19 07:30 09/27/19 03:31 0.25 MG Magnesium Sulfate 50 ml @ 25 mls/hr 1X ONCE 08/28/19 09:00 08/28/19 10:59 DC 08/28/19 10:44 25 MLS/HR Meropenem 1 gm/ Sodium Chloride 100 ml @ 200 mls/hr Q12HR 09/25/19 21:00 09/27/19 22:02 200 MLS/HR Meropenem 500 mg/ Sodium Chloride 50 ml @ 100 mls/hr Q6HRS 09/12/19 18:00 09/14/19 09:59 DC 09/14/19 06:02 100 MLS/HR Metoclopramide HCl (Reglan Vial) 10 mg PRN Q3HRS PRN 08/27/19 16:45 09/01/19 04:25 10 MG Metoprolol Tartrate (Lopressor Vial) 5 mg 1X ONCE 09/04/19 15:15 09/04/19 15:16 DC 09/04/19 15:31 5 MG Metronidazole 100 ml @ 100 mls/hr Q8HRS 08/02/19 10:00 08/09/19 08:10 DC 08/09/19 06:04 100 MLS/HR Micafungin Sodium 100 mg/Dextrose 100 ml @ 100 mls/hr Q24H 09/25/19 11:00 09/27/19 12:02 100 MLS/HR Midazolam HCl (Versed) 2 mg 1X ONCE 09/25/19 15:00 09/25/19 15:01 DC 09/25/19 15:28 1 MG Midazolam HCl 100 mg/Sodium Chloride 100 ml @ 7 mls/hr CONT PRN 07/16/19 16:00 09/21/19 14:38 DC 07/27/19 15:35 7 MLS/HR Midazolam HCl 50 mg/Sodium Chloride 50 ml @ 0 mls/hr CONT PRN 07/11/19 08:15 07/16/19 15:59 DC 07/14/19 22:39 7 MLS/HR Morphine Sulfate (Morphine Sulfate) 2 mg PRN Q2HR PRN 07/04/19 05:00 07/05/19 14:15 DC 07/05/19 12:26 2 MG Multi-Ingred Cream/Lotion/Oil/ Oint (Artificial Tears Eye Ointment) 1 ramu PRN Q1HR PRN 07/13/19 17:30 09/21/19 14:39 DC 08/01/19 08:19 1 RAMU Naloxone HCl (Narcan) 0.4 mg STK-MED ONCE 09/25/19 14:48 09/25/19 14:48 DC Norepinephrine Bitartrate 8 mg/ Dextrose 258 ml @ 13.332 mls/ hr CONT PRN 09/25/19 06:30 09/25/19 21:46 13.332 MLS/HR Ondansetron HCl (Zofran) 4 mg STK-MED ONCE 08/15/19 10:56 08/15/19 10:57 DC Pantoprazole Sodium (PROTONIX VIAL for IV PUSH) 40 mg DAILYAC 07/04/19 11:30 09/27/19 09:16 40 MG Phenylephrine HCl (PHENYLEPHRINE in 0.9% NACL PF) 1 mg STK-MED ONCE 08/15/19 12:34 08/15/19 12:34 DC Piperacillin Sod/ Tazobactam Sod 3.375 gm/Sodium Chloride 50 ml @ 100 mls/hr Q6HRS 09/14/19 12:00 09/22/19 07:26 DC 09/22/19 06:10 100 MLS/HR Piperacillin Sod/ Tazobactam Sod 4.5 gm/Sodium Chloride 100 ml @ 200 mls/hr 1X ONCE 07/04/19 06:00 07/04/19 06:29 DC 07/04/19 05:44 200 MLS/HR Potassium Chloride 110 meq/ Magnesium Sulfate 20 meq/ Multivitamins 10 ml/Chromium/ Copper/Manganese/ Seleni/Zn 1 ml/ Insulin Human Regular 15 unit/ Total Parenteral Nutrition/Amino Acids/Dextrose/ Fat Emulsion Intravenous 1,800 ml @ 75 mls/hr TPN CONT 09/11/19 22:00 09/12/19 21:59 DC 09/11/19 22:48 75 MLS/HR Potassium Chloride 15 meq/ Bicarbonate Dialysis Soln w/ out KCl 5,007.5 ml @ 1,000 mls/ hr Q5H1M 07/17/19 20:00 07/21/19 13:08 DC 07/20/19 18:14 1,000 MLS/HR Potassium Chloride 20 meq/ Bicarbonate Dialysis Soln w/ out KCl 5,010 ml @ 1,000 mls/hr Q5H1M 07/13/19 16:00 07/17/19 19:59 DC 07/17/19 14:54 1,000 MLS/HR Potassium Chloride 40 meq/ Potassium Acetate 60 meq/Magnesium Sulfate 10 meq/ Multivitamins 10 ml/Chromium/ Copper/Manganese/ Seleni/Zn 1 ml/ Insulin Human Regular 20 unit/ Total Parenteral Nutrition/Amino Acids/Dextrose/ Fat Emulsion Intravenous 1,800 ml @ 75 mls/hr TPN CONT 09/22/19 22:00 09/23/19 21:59 DC 09/23/19 00:03 75 MLS/HR Potassium Chloride 70 meq/ Magnesium Sulfate 20 meq/ Multivitamins 10 ml/Chromium/ Copper/Manganese/ Seleni/Zn 1 ml/ Insulin Human Regular 15 unit/ Total Parenteral Nutrition/Amino Acids/Dextrose/ Fat Emulsion Intravenous 1,800 ml @ 75 mls/hr TPN CONT 09/16/19 22:00 09/17/19 21:59 DC 09/16/19 23:13 75 MLS/HR Potassium Chloride 75 meq/ Magnesium Sulfate 15 meq/ Multivitamins 10 ml/Chromium/ Copper/Manganese/ Seleni/Zn 0.5 ml/ Insulin Human Regular 15 unit/ Total Parenteral Nutrition/Amino Acids/Dextrose/ Fat Emulsion Intravenous 1,920 ml @ 80 mls/hr TPN CONT 08/27/19 22:00 08/28/19 21:59 DC 08/27/19 22:41 80 MLS/HR Potassium Chloride 75 meq/ Magnesium Sulfate 15 meq/Calcium Gluconate 8 meq/ Multivitamins 10 ml/Chromium/ Copper/Manganese/ Seleni/Zn 0.5 ml/ Insulin Human Regular 15 unit/ Total Parenteral Nutrition/Amino Acids/Dextrose/ Fat Emulsion Intravenous 1,920 ml @ 80 mls/hr TPN CONT 08/25/19 22:00 08/26/19 21:59 DC 08/25/19 22:28 80 MLS/HR Potassium Chloride 75 meq/ Magnesium Sulfate 15 meq/Calcium Gluconate 8 meq/ Multivitamins 10 ml/Chromium/ Copper/Manganese/ Seleni/Zn 0.5 ml/ Insulin Human Regular 20 unit/ Total Parenteral Nutrition/Amino Acids/Dextrose/ Fat Emulsion Intravenous 1,920 ml @ 80 mls/hr TPN CONT 08/24/19 22:00 08/25/19 21:59 DC 08/24/19 22:00 80 MLS/HR Potassium Chloride 75 meq/ Magnesium Sulfate 15 meq/Calcium Gluconate 8 meq/ Multivitamins 10 ml/Chromium/ Copper/Manganese/ Seleni/Zn 0.5 ml/ Insulin Human Regular 25 unit/ Total Parenteral Nutrition/Amino Acids/Dextrose/ Fat Emulsion Intravenous 1,920 ml @ 80 mls/hr TPN CONT 08/22/19 22:00 08/23/19 21:59 DC 08/22/19 23:08 80 MLS/HR Potassium Chloride 75 meq/ Magnesium Sulfate 20 meq/Calcium Gluconate 10 meq/ Multivitamins 10 ml/Chromium/ Copper/Manganese/ Seleni/Zn 0.5 ml/ Insulin Human Regular 25 unit/ Total Parenteral Nutrition/Amino Acids/Dextrose/ Fat Emulsion Intravenous 1,920 ml @ 80 mls/hr TPN CONT 08/21/19 22:00 08/22/19 21:59 DC 08/21/19 22:04 80 MLS/HR Potassium Chloride 75 meq/ Magnesium Sulfate 20 meq/Calcium Gluconate 10 meq/ Multivitamins 10 ml/Chromium/ Copper/Manganese/ Seleni/Zn 0.5 ml/ Insulin Human Regular 30 unit/ Total Parenteral Nutrition/Amino Acids/Dextrose/ Fat Emulsion Intravenous 1,920 ml @ 80 mls/hr TPN CONT 08/20/19 22:00 08/21/19 22:00 DC 08/20/19 21:51 80 MLS/HR Potassium Chloride 80 meq/ Magnesium Sulfate 20 meq/ Multivitamins 10 ml/Chromium/ Copper/Manganese/ Seleni/Zn 0.5 ml/ Insulin Human Regular 15 unit/ Total Parenteral Nutrition/Amino Acids/Dextrose/ Fat Emulsion Intravenous 1,920 ml @ 80 mls/hr TPN CONT 08/30/19 22:00 08/31/19 21:59 DC 08/30/19 21:40 80 MLS/HR Potassium Chloride 80 meq/ Magnesium Sulfate 20 meq/ Multivitamins 10 ml/Chromium/ Copper/Manganese/ Seleni/Zn 1 ml/ Insulin Human Regular 15 unit/ Total Parenteral Nutrition/Amino Acids/Dextrose/ Fat Emulsion Intravenous 1,800 ml @ 75 mls/hr TPN CONT 09/18/19 22:00 09/19/19 21:59 DC 09/18/19 21:54 75 MLS/HR Potassium Chloride 90 meq/ Magnesium Sulfate 20 meq/ Multivitamins 10 ml/Chromium/ Copper/Manganese/ Seleni/Zn 1 ml/ Insulin Human Regular 15 unit/ Total Parenteral Nutrition/Amino Acids/Dextrose/ Fat Emulsion Intravenous 1,800 ml @ 75 mls/hr TPN CONT 09/07/19 22:00 09/08/19 21:59 DC 09/07/19 22:28 75 MLS/HR Potassium Chloride 90 meq/ Magnesium Sulfate 20 meq/ Multivitamins 10 ml/Chromium/ Copper/Manganese/ Seleni/Zn 1 ml/ Insulin Human Regular 20 unit/ Total Parenteral Nutrition/Amino Acids/Dextrose/ Fat Emulsion Intravenous 1,800 ml @ 75 mls/hr TPN CONT 09/21/19 22:00 09/22/19 21:59 DC 09/21/19 23:13 75 MLS/HR Potassium Chloride/Water 100 ml @ 100 mls/hr 1X ONCE 09/19/19 10:00 09/19/19 10:59 DC 09/19/19 10:15 100 MLS/HR Potassium Phosphate 20 mmol/ Sodium Chloride 106.6667 ml @ 51.667 m... 1X ONCE 07/13/19 13:00 07/13/19 15:03 DC 07/13/19 12:51 51.667 MLS/HR Potassium Acetate 30 meq/Magnesium Sulfate 20 meq/ Calcium Gluconate 10 meq/ Multivitamins 10 ml/Chromium/ Copper/Manganese/ Seleni/Zn 0.5 ml/ Insulin Human Regular 30 unit/ Potassium Chloride 30 meq/ Total Parenteral Nutrition/Amino Acids/Dextrose/ Fat Emulsion Intravenous 1,920 ml @ 80 mls/hr TPN CONT 08/19/19 22:00 08/20/19 21:59 DC 08/19/19 22:34 80 MLS/HR Potassium Acetate 40 meq/Magnesium Sulfate 5 meq/ Multivitamins 10 ml/Chromium/ Copper/Manganese/ Seleni/Zn 1 ml/ Insulin Human Regular 30 unit/ Total Parenteral Nutrition/Amino Acids/Dextrose/ Fat Emulsion Intravenous 1,920 ml @ 80 mls/hr TPN CONT 09/27/19 22:00 09/28/19 21:59 09/27/19 22:03 80 MLS/HR Potassium Acetate 55 meq/Magnesium Sulfate 20 meq/ Calcium Gluconate 10 meq/ Multivitamins 10 ml/Chromium/ Copper/Manganese/ Seleni/Zn 0.5 ml/ Insulin Human Regular 30 unit/ Total Parenteral Nutrition/Amino Acids/Dextrose/ Fat Emulsion Intravenous 1,920 ml @ 80 mls/hr TPN CONT 08/18/19 22:00 08/19/19 21:59 DC 08/19/19 01:00 80 MLS/HR Potassium Acetate 55 meq/Magnesium Sulfate 20 meq/ Calcium Gluconate 10 meq/ Multivitamins 10 ml/Chromium/ Copper/Manganese/ Seleni/Zn 0.5 ml/ Insulin Human Regular 35 unit/ Total Parenteral Nutrition/Amino Acids/Dextrose/ Fat Emulsion Intravenous 1,920 ml @ 80 mls/hr TPN CONT 08/16/19 22:00 08/17/19 21:59 DC 08/16/19 22:02 80 MLS/HR Potassium Acetate 60 meq/Magnesium Sulfate 5 meq/ Multivitamins 10 ml/Chromium/ Copper/Manganese/ Seleni/Zn 1 ml/ Insulin Human Regular 30 unit/ Total Parenteral Nutrition/Amino Acids/Dextrose/ Fat Emulsion Intravenous 1,920 ml @ 80 mls/hr TPN CONT 09/24/19 22:00 09/25/19 21:59 DC 09/24/19 21:54 80 MLS/HR Potassium Acetate 65 meq/Magnesium Sulfate 20 meq/ Calcium Gluconate 10 meq/ Multivitamins 10 ml/Chromium/ Copper/Manganese/ Seleni/Zn 0.5 ml/ Insulin Human Regular 30 unit/ Total Parenteral Nutrition/Amino Acids/Dextrose/ Fat Emulsion Intravenous 1,920 ml @ 80 mls/hr TPN CONT 08/17/19 22:00 08/18/19 21:59 DC 08/17/19 22:22 80 MLS/HR Potassium Acetate 80 meq/Magnesium Sulfate 5 meq/ Multivitamins 10 ml/Chromium/ Copper/Manganese/ Seleni/Zn 1 ml/ Insulin Human Regular 20 unit/ Total Parenteral Nutrition/Amino Acids/Dextrose/ Fat Emulsion Intravenous 1,920 ml @ 80 mls/hr TPN CONT 09/23/19 22:00 09/24/19 21:59 DC 09/23/19 21:59 80 MLS/HR Prochlorperazine Edisylate (Compazine) 5 mg PACU PRN PRN 08/15/19 07:00 08/16/19 06:59 DC Propofol 20 ml @ As Directed STK-MED ONCE 08/15/19 12:26 08/15/19 12:27 DC Ringer's Solution 1,000 ml @ 30 mls/hr Q24H 08/15/19 07:00 08/15/19 18:59 DC Rocuronium [place] (Zemuron) 50 mg STK-MED ONCE 08/15/19 10:56 08/15/19 10:57 DC Saliva Substitute (Biotene Moisturizing Mouth) 2 spray PRN Q15MIN PRN 09/08/19 11:00 Sevoflurane (Ultane) 60 ml STK-MED ONCE 08/15/19 12:26 08/15/19 12:27 DC Sodium Bicarbonate 50 meq/Sodium Chloride 1,050 ml @ 75 mls/hr Q14H 07/06/19 07:30 07/11/19 10:28 DC 07/10/19 21:10 75 MLS/HR Sodium Acetate 50 meq/Potassium Acetate 55 meq/ Magnesium Sulfate 20 meq/Calcium Gluconate 10 meq/ Multivitamins 10 ml/Chromium/ Copper/Manganese/ Seleni/Zn 0.5 ml/ Insulin Human Regular 35 unit/ Total Parenteral Nutrition/Amino Acids/Dextrose/ Fat Emulsion Intravenous 1,800 ml @ 75 mls/hr TPN CONT 08/13/19 22:00 08/14/19 21:59 DC 08/13/19 22:03 75 MLS/HR Sodium Bicarbonate (Sodium Bicarb Adult 8.4% Syr) 50 meq 1X ONCE 09/25/19 22:00 09/25/19 22:01 DC 09/25/19 21:47 50 MEQ Sodium Chloride 500 ml @ 500 mls/hr 1X ONCE 09/27/19 06:45 09/27/19 07:44 DC 09/27/19 06:39 500 MLS/HR Sodium Chloride (Normal Saline Flush) 3 ml QSHIFT PRN 08/15/19 13:45 Sodium Chloride 90 meq/Calcium Gluconate 10 meq/ Multivitamins 10 ml/Chromium/ Copper/Manganese/ Seleni/Zn 0.5 ml/ Total Parenteral Nutrition/Amino Acids/Dextrose/ Fat Emulsion Intravenous 1,512 ml @ 63 mls/hr TPN CONT 07/06/19 22:00 07/07/19 21:59 DC 07/06/19 22:06 63 MLS/HR Sodium Chloride 90 meq/Calcium Gluconate 10 meq/ Multivitamins 10 ml/Chromium/ Copper/Manganese/ Seleni/Zn 1 ml/ Total Parenteral Nutrition/Amino Acids/Dextrose/ Fat Emulsion Intravenous 55.005 ml @ 2.292 mls/hr TPN CONT 07/06/19 22:00 07/06/19 12:33 DC Sodium Chloride 90 meq/Magnesium Sulfate 10 meq/ Calcium Gluconate 20 meq/ Multivitamins 10 ml/Chromium/ Copper/Manganese/ Seleni/Zn 0.5 ml/ Total Parenteral Nutrition/Amino Acids/Dextrose/ Fat Emulsion Intravenous 1,512 ml @ 63 mls/hr TPN CONT 07/07/19 22:00 07/08/19 21:59 DC 07/07/19 22:25 63 MLS/HR Sodium Chloride 90 meq/Magnesium Sulfate 12 meq/ Calcium Gluconate 15 meq/ Multivitamins 10 ml/Chromium/ Copper/Manganese/ Seleni/Zn 0.5 ml/ Insulin Human Regular 25 unit/ Total Parenteral Nutrition/Amino Acids/Dextrose/ Fat Emulsion Intravenous 1,400 ml @ 58.333 mls/ hr TPN CONT 07/27/19 22:00 07/28/19 21:59 DC 07/27/19 21:41 58.333 MLS/HR Sodium Chloride 90 meq/Potassium Chloride 15 meq/ Magnesium Sulfate 12 meq/Calcium Gluconate 15 meq/ Multivitamins 10 ml/Chromium/ Copper/Manganese/ Seleni/Zn 0.5 ml/ Insulin Human Regular 25 unit/ Total Parenteral Nutrition/Amino Acids/Dextrose/ Fat Emulsion Intravenous 1,400 ml @ 58.333 mls/ hr TPN CONT 07/26/19 22:00 07/27/19 21:59 DC 07/26/19 22:13 58.333 MLS/HR Sodium Chloride 90 meq/Potassium Chloride 15 meq/ Potassium Phosphate 10 mmol/ Magnesium Sulfate 8 meq/Calcium Gluconate 15 meq/ Multivitamins 10 ml/Chromium/ Copper/Manganese/ Seleni/Zn 0.5 ml/ Insulin Human Regular 25 unit/ Total Parenteral Nutrition/Amino Acids/Dextrose/ Fat Emulsion Intravenous 1,400 ml @ 58.333 mls/ hr TPN CONT 07/24/19 22:00 07/25/19 21:59 DC 07/24/19 21:20 58.333 MLS/HR Sodium Chloride 90 meq/Potassium Chloride 15 meq/ Potassium Phosphate 10 mmol/ Magnesium Sulfate 10 meq/Calcium Gluconate 20 meq/ Multivitamins 10 ml/Chromium/ Copper/Manganese/ Seleni/Zn 0.5 ml/ Total Parenteral Nutrition/Amino Acids/Dextrose/ Fat Emulsion Intravenous 1,400 ml @ 58.333 mls/ hr TPN CONT 07/11/19 22:00 07/12/19 21:59 DC 07/11/19 21:42 58.333 MLS/HR Sodium Chloride 90 meq/Potassium Chloride 15 meq/ Potassium Phosphate 10 mmol/ Magnesium Sulfate 12 meq/Calcium Gluconate 15 meq/ Multivitamins 10 ml/Chromium/ Copper/Manganese/ Seleni/Zn 0.5 ml/ Insulin Human Regular 25 unit/ Total Parenteral Nutrition/Amino Acids/Dextrose/ Fat Emulsion Intravenous 1,400 ml @ 58.333 mls/ hr TPN CONT 07/25/19 22:00 07/26/19 21:59 DC 07/25/19 22:24 58.333 MLS/HR Sodium Chloride 90 meq/Potassium Chloride 15 meq/ Potassium Phosphate 15 mmol/ Magnesium Sulfate 10 meq/Calcium Gluconate 15 meq/ Multivitamins 10 ml/Chromium/ Copper/Manganese/ Seleni/Zn 0.5 ml/ Total Parenteral Nutrition/Amino Acids/Dextrose/ Fat Emulsion Intravenous 1,400 ml @ 58.333 mls/ hr TPN CONT 07/12/19 22:00 07/13/19 21:59 DC 07/12/19 22:17 58.333 MLS/HR Sodium Chloride 90 meq/Potassium Chloride 15 meq/ Potassium Phosphate 15 mmol/ Magnesium Sulfate 10 meq/Calcium Gluconate 20 meq/ Multivitamins 10 ml/Chromium/ Copper/Manganese/ Seleni/Zn 0.5 ml/ Total Parenteral Nutrition/Amino Acids/Dextrose/ Fat Emulsion Intravenous 1,200 ml @ 50 mls/hr TPN CONT 07/10/19 22:00 07/10/19 14:17 DC Sodium Chloride 90 meq/Potassium Chloride 15 meq/ Potassium Phosphate 18 mmol/ Magnesium Sulfate 8 meq/Calcium Gluconate 15 meq/ Multivitamins 10 ml/Chromium/ Copper/Manganese/ Seleni/Zn 0.5 ml/ Insulin Human Regular 10 unit/ Total Parenteral Nutrition/Amino Acids/Dextrose/ Fat Emulsion Intravenous 1,400 ml @ 58.333 mls/ hr TPN CONT 07/15/19 22:00 07/16/19 21:59 DC 07/15/19 21:43 58.333 MLS/HR Sodium Chloride 90 meq/Potassium Chloride 15 meq/ Potassium Phosphate 18 mmol/ Magnesium Sulfate 8 meq/Calcium Gluconate 15 meq/ Multivitamins 10 ml/Chromium/ Copper/Manganese/ Seleni/Zn 0.5 ml/ Insulin Human Regular 15 unit/ Total Parenteral Nutrition/Amino Acids/Dextrose/ Fat Emulsion Intravenous 1,400 ml @ 58.333 mls/ hr TPN CONT 07/18/19 22:00 07/19/19 21:59 DC 07/18/19 21:47 58.333 MLS/HR Sodium Chloride 90 meq/Potassium Chloride 15 meq/ Potassium Phosphate 18 mmol/ Magnesium Sulfate 8 meq/Calcium Gluconate 15 meq/ Multivitamins 10 ml/Chromium/ Copper/Manganese/ Seleni/Zn 0.5 ml/ Insulin Human Regular 20 unit/ Total Parenteral Nutrition/Amino Acids/Dextrose/ Fat Emulsion Intravenous 1,400 ml @ 58.333 mls/ hr TPN CONT 07/21/19 22:00 07/22/19 21:59 DC 07/21/19 22:45 58.333 MLS/HR Sodium Chloride 90 meq/Potassium Chloride 15 meq/ Potassium Phosphate 18 mmol/ Magnesium Sulfate 8 meq/Calcium Gluconate 15 meq/ Multivitamins 10 ml/Chromium/ Copper/Manganese/ Seleni/Zn 0.5 ml/ Total Parenteral Nutrition/Amino Acids/Dextrose/ Fat Emulsion Intravenous 1,400 ml @ 58.333 mls/ hr TPN CONT 07/14/19 22:00 07/15/19 21:59 DC 07/14/19 22:00 58.333 MLS/HR Sodium Chloride 90 meq/Potassium Phosphate 15 mmol/ Magnesium Sulfate 12 meq/Calcium Gluconate 15 meq/ Multivitamins 10 ml/Chromium/ Copper/Manganese/ Seleni/Zn 0.5 ml/ Insulin Human Regular 30 unit/ Total Parenteral Nutrition/Amino Acids/Dextrose/ Fat Emulsion Intravenous 1,400 ml @ 58.333 mls/ hr TPN CONT 07/29/19 22:00 07/30/19 21:59 DC 07/29/19 21:49 58.333 MLS/HR Sodium Chloride 90 meq/Potassium Phosphate 15 mmol/ Magnesium Sulfate 12 meq/Calcium Gluconate 15 meq/ Multivitamins 10 ml/Chromium/ Copper/Manganese/ Seleni/Zn 0.5 ml/ Insulin Human Regular 40 unit/ Total Parenteral Nutrition/Amino Acids/Dextrose/ Fat Emulsion Intravenous 1,400 ml @ 58.333 mls/ hr TPN CONT 07/30/19 22:00 07/31/19 21:59 DC 07/30/19 21:21 58.333 MLS/HR Sodium Chloride 90 meq/Potassium Phosphate 19 mmol/ Magnesium Sulfate 12 meq/Calcium Gluconate 15 meq/ Multivitamins 10 ml/Chromium/ Copper/Manganese/ Seleni/Zn 0.5 ml/ Insulin Human Regular 40 unit/ Total Parenteral Nutrition/Amino Acids/Dextrose/ Fat Emulsion Intravenous 1,400 ml @ 58.333 mls/ hr TPN CONT 07/31/19 22:00 08/01/19 21:59 DC 07/31/19 21:54 58.333 MLS/HR Sodium Chloride 90 meq/Potassium Phosphate 5 mmol/ Magnesium Sulfate 12 meq/Calcium Gluconate 15 meq/ Multivitamins 10 ml/Chromium/ Copper/Manganese/ Seleni/Zn 0.5 ml/ Insulin Human Regular 30 unit/ Total Parenteral Nutrition/Amino Acids/Dextrose/ Fat Emulsion Intravenous 1,400 ml @ 58.333 mls/ hr TPN CONT 07/28/19 22:00 07/29/19 21:59 DC 07/28/19 22:08 58.333 MLS/HR Sodium Chloride 100 meq/Potassium Chloride 40 meq/ Magnesium Sulfate 15 meq/Calcium Gluconate 15 meq/ Multivitamins 10 ml/Chromium/ Copper/Manganese/ Seleni/Zn 0.5 ml/ Insulin Human Regular 35 unit/ Total Parenteral Nutrition/Amino Acids/Dextrose/ Fat Emulsion Intravenous 1,400 ml @ 58.333 mls/ hr TPN CONT 08/07/19 22:00 08/08/19 21:59 DC 08/07/19 22:46 58.333 MLS/HR Sodium Chloride 100 meq/Potassium Chloride 40 meq/ Magnesium Sulfate 20 meq/Calcium Gluconate 10 meq/ Multivitamins 10 ml/Chromium/ Copper/Manganese/ Seleni/Zn 0.5 ml/ Insulin Human Regular 35 unit/ Total Parenteral Nutrition/Amino Acids/Dextrose/ Fat Emulsion Intravenous 1,400 ml @ 58.333 mls/ hr TPN CONT 08/11/19 22:00 08/12/19 21:59 DC 08/12/19 00:06 58.333 MLS/HR Sodium Chloride 100 meq/Potassium Chloride 40 meq/ Magnesium Sulfate 20 meq/Calcium Gluconate 15 meq/ Multivitamins 10 ml/Chromium/ Copper/Manganese/ Seleni/Zn 0.5 ml/ Insulin Human Regular 35 unit/ Total Parenteral Nutrition/Amino Acids/Dextrose/ Fat Emulsion Intravenous 1,400 ml @ 58.333 mls/ hr TPN CONT 08/10/19 22:00 08/11/19 21:59 DC 08/10/19 22:27 58.333 MLS/HR Sodium Chloride 100 meq/Potassium Phosphate 10 mmol/ Magnesium Sulfate 12 meq/Calcium Gluconate 15 meq/ Multivitamins 10 ml/Chromium/ Copper/Manganese/ Seleni/Zn 0.5 ml/ Insulin Human Regular 35 unit/ Potassium Chloride 20 meq/ Total Parenteral Nutrition/Amino Acids/Dextrose/ Fat Emulsion Intravenous 1,400 ml @ 58.333 mls/ hr TPN CONT 08/04/19 22:00 08/05/19 21:59 DC 08/04/19 22:10 58.333 MLS/HR Sodium Chloride 100 meq/Potassium Phosphate 19 mmol/ Magnesium Sulfate 12 meq/Calcium Gluconate 15 meq/ Multivitamins 10 ml/Chromium/ Copper/Manganese/ Seleni/Zn 0.5 ml/ Insulin Human Regular 40 unit/ Potassium Chloride 20 meq/ Total Parenteral Nutrition/Amino Acids/Dextrose/ Fat Emulsion Intravenous 1,400 ml @ 58.333 mls/ hr TPN CONT 08/03/19 22:00 08/04/19 21:59 DC 08/03/19 21:20 58.333 MLS/HR Sodium Chloride 100 meq/Potassium Phosphate 5 mmol/ Magnesium Sulfate 12 meq/Calcium Gluconate 15 meq/ Multivitamins 10 ml/Chromium/ Copper/Manganese/ Seleni/Zn 0.5 ml/ Insulin Human Regular 35 unit/ Potassium Chloride 20 meq/ Total Parenteral Nutrition/Amino Acids/Dextrose/ Fat Emulsion Intravenous 1,400 ml @ 58.333 mls/ hr TPN CONT 08/05/19 22:00 08/06/19 21:59 DC 08/05/19 22:59 58.333 MLS/HR Succinylcholine Chloride (Anectine) 120 mg 1X ONCE 07/11/19 08:30 07/11/19 08:31 DC 07/11/19 08:34 120 MG Vecuronium Arden (Norcuron Bolus) 6 mg PRN Q6HRS PRN 08/25/19 19:15 08/25/19 19:35 DC Labs: Lab Laboratory Tests Test 09/27/19 12:16 09/27/19 18:14 09/27/19 23:54 09/28/19 05:50 Glucose (Fingerstick) 140 mg/dL (70-99) 158 mg/dL (70-99) 116 mg/dL (70-99) White Blood Count 6.8 x10^3/uL (4.0-11.0) Red Blood Count 2.67 x10^6/uL (3.50-5.40) Hemoglobin 7.8 g/dL (12.0-15.5) Hematocrit 24.0 % (36.0-47.0) Mean Corpuscular Volume 90 fL (79-100) Mean Corpuscular Hemoglobin 29 pg (25-35) Mean Corpuscular Hemoglobin Concent 33 g/dL (31-37) Red Cell Distribution Width 18.0 % (11.5-14.5) Platelet Count 279 x10^3/uL (140-400) Neutrophils (%) (Auto) 71 % (31-73) Lymphocytes (%) (Auto) 20 % (24-48) Monocytes (%) (Auto) 7 % (0-9) Eosinophils (%) (Auto) 2 % (0-3) Basophils (%) (Auto) 0 % (0-3) Neutrophils # (Auto) 4.8 x10^3/uL (1.8-7.7) Lymphocytes # (Auto) 1.3 x10^3/uL (1.0-4.8) Monocytes # (Auto) 0.5 x10^3/uL (0.0-1.1) Eosinophils # (Auto) 0.1 x10^3/uL (0.0-0.7) Basophils # (Auto) 0.0 x10^3/uL (0.0-0.2) Sodium Level 147 mmol/L (136-145) Potassium Level 3.9 mmol/L (3.5-5.1) Chloride Level 117 mmol/L (98-107) Carbon Dioxide Level 23 mmol/L (21-32) Anion Gap 7 (6-14) Blood Urea Nitrogen 38 mg/dL (7-20) Creatinine 1.0 mg/dL (0.6-1.0) Estimated GFR (Cockcroft-Gault) 58.9 Glucose Level 164 mg/dL (70-99) Calcium Level 10.0 mg/dL (8.5-10.1) Test 09/28/19 05:54 Glucose (Fingerstick) 152 mg/dL (70-99) Objective: Assessment: Patient with prolonged hospitalization Multiple medical problems Possible surgical procedures Fever Acute pancreatitis with persistent necrosis CT a/p 07/27 Increased ascites. 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 Sequela of pancreatitis with extensive pseudocysts again demonstrated, the right-sided collections are slightly larger since the prior exam, the left-sided collections are stable. 09/24 fluid cult PSAE,yeast Cholelithiasis with thickening of the gallbladder wall. Leucocytosis JUANA,Hyperkalemia, Metabolic acidosis off dialysis Acute hypoxic resp failure ,bilateral pleural effusion and atelectasis hypocalcemia Prediabetes HTN s/p trach Plan: Plan of Care Continue meropenem, dose adjusted for renal function , September 24 cont micafungin September 24 DC Dapto Follow-up cultures fluid Pseudomonas,,yeast Monitor a.m. labs General surgery following Monitor drain output Maintain aspiration precaution Supportive care Prognosis poor Critically ill D/w nursing YUNIOR JONES MD Sep 28, 2019 08:13
[2019-09-28] MEDS: MEROPENEM 1 GM in IV NORMAL SALINE 100ML 100 ML IV SCH ×2 (08:16→21:26)
[2019-09-28] MEDS: PANTOPRAZOLE IV PUSH 40 MG VIAL. IVP SCH (08:17)
--- NOTE | 2019-09-28 10:11 | PDOC ---
SURGICAL PROGRESS NOTE Subjective Pt awake on trach shield, appears anxious Vital Signs Vital Signs Date Time Temp Pulse Resp B/P (MAP) Pulse Ox O2 Delivery O2 Flow Rate FiO2 09/28/19 08:57 99 Tracheal Collar 10.0 09/28/19 08:00 98.0 130 28 168/85 (112) 98.0 I&O Intake and Output 09/28/19 06:59 Intake Total 4496 ml Output Total 3150 ml Balance 1346 ml IV Total 4496 ml Output Urine Total 2335 ml Drainage Total 815 ml PATIENT HAS A ROSARIO: Yes General: Alert, Cooperative, mild distress Abdomen: Soft, Other (drains with brownish drainage, c/w pancreatic necrosis) Labs Laboratory Tests Test 09/26/19 11:00 09/26/19 11:55 09/26/19 18:25 09/27/19 00:16 Stool Occult Blood Negative (NEG) White Blood Count 11.8 x10^3/uL (4.0-11.0) Red Blood Count 2.93 x10^6/uL (3.50-5.40) Hemoglobin 8.6 g/dL (12.0-15.5) Hematocrit 26.0 % (36.0-47.0) Mean Corpuscular Volume 89 fL (79-100) Mean Corpuscular Hemoglobin 29 pg (25-35) Mean Corpuscular Hemoglobin Concent 33 g/dL (31-37) Red Cell Distribution Width 16.8 % (11.5-14.5) Platelet Count 292 x10^3/uL (140-400) Glucose (Fingerstick) 203 mg/dL (70-99) 190 mg/dL (70-99) 126 mg/dL (70-99) Test 09/27/19 04:00 09/27/19 05:24 09/27/19 06:22 09/27/19 12:16 White Blood Count 8.0 x10^3/uL (4.0-11.0) Red Blood Count 2.92 x10^6/uL (3.50-5.40) Hemoglobin 8.6 g/dL (12.0-15.5) Hematocrit 26.2 % (36.0-47.0) Mean Corpuscular Volume 90 fL (79-100) Mean Corpuscular Hemoglobin 30 pg (25-35) Mean Corpuscular Hemoglobin Concent 33 g/dL (31-37) Red Cell Distribution Width 17.4 % (11.5-14.5) Platelet Count 285 x10^3/uL (140-400) Neutrophils (%) (Auto) 77 % (31-73) Lymphocytes (%) (Auto) 16 % (24-48) Monocytes (%) (Auto) 5 % (0-9) Eosinophils (%) (Auto) 2 % (0-3) Basophils (%) (Auto) 0 % (0-3) Neutrophils # (Auto) 6.1 x10^3/uL (1.8-7.7) Lymphocytes # (Auto) 1.3 x10^3/uL (1.0-4.8) Monocytes # (Auto) 0.4 x10^3/uL (0.0-1.1) Eosinophils # (Auto) 0.2 x10^3/uL (0.0-0.7) Basophils # (Auto) 0.0 x10^3/uL (0.0-0.2) Sodium Level 150 mmol/L (136-145) Potassium Level 4.2 mmol/L (3.5-5.1) Chloride Level 118 mmol/L (98-107) Carbon Dioxide Level 23 mmol/L (21-32) Anion Gap 9 (6-14) Blood Urea Nitrogen 48 mg/dL (7-20) Creatinine 1.1 mg/dL (0.6-1.0) Estimated GFR (Cockcroft-Gault) 52.8 Glucose Level 165 mg/dL (70-99) Calcium Level 10.3 mg/dL (8.5-10.1) O2 Saturation 90 % (92-99) Arterial Blood pH 7.36 (7.35-7.45) Arterial Blood pCO2 at Patient Temp 36 mmHg (35-46) Arterial Blood pO2 at Patient Temp 63 mmHg (75-108) Arterial Blood HCO3 20 mmol/L (21-28) Arterial Blood Base Excess -5 mmol/L (-3-3) FiO2 33 Glucose (Fingerstick) 131 mg/dL (70-99) 140 mg/dL (70-99) Test 09/27/19 18:14 09/27/19 23:54 09/28/19 05:50 09/28/19 05:54 Glucose (Fingerstick) 158 mg/dL (70-99) 116 mg/dL (70-99) 152 mg/dL (70-99) White Blood Count 6.8 x10^3/uL (4.0-11.0) Red Blood Count 2.67 x10^6/uL (3.50-5.40) Hemoglobin 7.8 g/dL (12.0-15.5) Hematocrit 24.0 % (36.0-47.0) Mean Corpuscular Volume 90 fL (79-100) Mean Corpuscular Hemoglobin 29 pg (25-35) Mean Corpuscular Hemoglobin Concent 33 g/dL (31-37) Red Cell Distribution Width 18.0 % (11.5-14.5) Platelet Count 279 x10^3/uL (140-400) Neutrophils (%) (Auto) 71 % (31-73) Lymphocytes (%) (Auto) 20 % (24-48) Monocytes (%) (Auto) 7 % (0-9) Eosinophils (%) (Auto) 2 % (0-3) Basophils (%) (Auto) 0 % (0-3) Neutrophils # (Auto) 4.8 x10^3/uL (1.8-7.7) Lymphocytes # (Auto) 1.3 x10^3/uL (1.0-4.8) Monocytes # (Auto) 0.5 x10^3/uL (0.0-1.1) Eosinophils # (Auto) 0.1 x10^3/uL (0.0-0.7) Basophils # (Auto) 0.0 x10^3/uL (0.0-0.2) Sodium Level 147 mmol/L (136-145) Potassium Level 3.9 mmol/L (3.5-5.1) Chloride Level 117 mmol/L (98-107) Carbon Dioxide Level 23 mmol/L (21-32) Anion Gap 7 (6-14) Blood Urea Nitrogen 38 mg/dL (7-20) Creatinine 1.0 mg/dL (0.6-1.0) Estimated GFR (Cockcroft-Gault) 58.9 Glucose Level 164 mg/dL (70-99) Calcium Level 10.0 mg/dL (8.5-10.1) Laboratory Tests Test 09/27/19 12:16 09/27/19 18:14 09/27/19 23:54 09/28/19 05:50 Glucose (Fingerstick) 140 mg/dL (70-99) 158 mg/dL (70-99) 116 mg/dL (70-99) White Blood Count 6.8 x10^3/uL (4.0-11.0) Red Blood Count 2.67 x10^6/uL (3.50-5.40) Hemoglobin 7.8 g/dL (12.0-15.5) Hematocrit 24.0 % (36.0-47.0) Mean Corpuscular Volume 90 fL (79-100) Mean Corpuscular Hemoglobin 29 pg (25-35) Mean Corpuscular Hemoglobin Concent 33 g/dL (31-37) Red Cell Distribution Width 18.0 % (11.5-14.5) Platelet Count 279 x10^3/uL (140-400) Neutrophils (%) (Auto) 71 % (31-73) Lymphocytes (%) (Auto) 20 % (24-48) Monocytes (%) (Auto) 7 % (0-9) Eosinophils (%) (Auto) 2 % (0-3) Basophils (%) (Auto) 0 % (0-3) Neutrophils # (Auto) 4.8 x10^3/uL (1.8-7.7) Lymphocytes # (Auto) 1.3 x10^3/uL (1.0-4.8) Monocytes # (Auto) 0.5 x10^3/uL (0.0-1.1) Eosinophils # (Auto) 0.1 x10^3/uL (0.0-0.7) Basophils # (Auto) 0.0 x10^3/uL (0.0-0.2) Sodium Level 147 mmol/L (136-145) Potassium Level 3.9 mmol/L (3.5-5.1) Chloride Level 117 mmol/L (98-107) Carbon Dioxide Level 23 mmol/L (21-32) Anion Gap 7 (6-14) Blood Urea Nitrogen 38 mg/dL (7-20) Creatinine 1.0 mg/dL (0.6-1.0) Estimated GFR (Cockcroft-Gault) 58.9 Glucose Level 164 mg/dL (70-99) Calcium Level 10.0 mg/dL (8.5-10.1) Test 09/28/19 05:54 Glucose (Fingerstick) 152 mg/dL (70-99) Problem List Problems Medical Problems: (1) Acute pancreatitis Status: Acute (2) Cholelithiasis Status: Acute Assessment/Plan severe pancreatic necrosis pt appears more stable at this time. cont supportive care given persistent issues, will need to consider operative intervention. Ideally, favor medical stabilization over the next week or so and then consider operative intervention. Pt remains critically ill, but operative intervention may be best way forward. Previous operative intervention abandoned, given gradual improvement at that time, but given persistence would need full operative intervention ("step up"). Would include cholecystectomy, pancreatic necrosectomy. Unlikely to be able to simply do cystgastrostomy, given lack of maturity of pseudocyst. D/w hospitalist. Justicifation of Admission Dx: Justifications for Admission: Justification of Admission Dx: Yes DAVON SIMMS MD Sep 28, 2019 10:11
--- NOTE | 2019-09-28 10:35 | PDOC ---
PULMONARY PROGRESS NOTES Subjective Patient intubated on 07/10 , s/p trach 07/24, transferred back to ICU 09/22 for syncope with collapse developed anemia, blood drainage from RLQ abdomen drain site, and surrounding firmness / developed septic shock 09/24 from abdomen source, required levo 09/24 s/p 3 new drains 09/24 with brown color drainage was place on AVAPS 09/24 post On low dose levo for hypotension, now off. received aggressive IVF, improving renal function Dark blood from KAYLIN drains Vitals Vital Signs Date Time Temp Pulse Resp B/P (MAP) Pulse Ox O2 Delivery O2 Flow Rate FiO2 09/28/19 10:23 18 98 Tracheal Collar 09/28/19 08:57 10.0 09/28/19 08:00 98.0 130 168/85 (112) 98.0 General: Alert, No acute distress Lungs: Other (diminshed in bases, Rhonci in LLL) Cardiovascular: S1, S2 Abdomen: Soft, Non-tender, Other (bleeding from Sx. site RLQ and firmness) Extremities: Other (+1 BLE edema) Skin: Warm, Dry Labs Laboratory Tests Test 09/26/19 11:00 09/26/19 11:55 09/26/19 18:25 09/27/19 00:16 Stool Occult Blood Negative (NEG) White Blood Count 11.8 x10^3/uL (4.0-11.0) Red Blood Count 2.93 x10^6/uL (3.50-5.40) Hemoglobin 8.6 g/dL (12.0-15.5) Hematocrit 26.0 % (36.0-47.0) Mean Corpuscular Volume 89 fL (79-100) Mean Corpuscular Hemoglobin 29 pg (25-35) Mean Corpuscular Hemoglobin Concent 33 g/dL (31-37) Red Cell Distribution Width 16.8 % (11.5-14.5) Platelet Count 292 x10^3/uL (140-400) Glucose (Fingerstick) 203 mg/dL (70-99) 190 mg/dL (70-99) 126 mg/dL (70-99) Test 09/27/19 04:00 09/27/19 05:24 09/27/19 06:22 09/27/19 12:16 White Blood Count 8.0 x10^3/uL (4.0-11.0) Red Blood Count 2.92 x10^6/uL (3.50-5.40) Hemoglobin 8.6 g/dL (12.0-15.5) Hematocrit 26.2 % (36.0-47.0) Mean Corpuscular Volume 90 fL (79-100) Mean Corpuscular Hemoglobin 30 pg (25-35) Mean Corpuscular Hemoglobin Concent 33 g/dL (31-37) Red Cell Distribution Width 17.4 % (11.5-14.5) Platelet Count 285 x10^3/uL (140-400) Neutrophils (%) (Auto) 77 % (31-73) Lymphocytes (%) (Auto) 16 % (24-48) Monocytes (%) (Auto) 5 % (0-9) Eosinophils (%) (Auto) 2 % (0-3) Basophils (%) (Auto) 0 % (0-3) Neutrophils # (Auto) 6.1 x10^3/uL (1.8-7.7) Lymphocytes # (Auto) 1.3 x10^3/uL (1.0-4.8) Monocytes # (Auto) 0.4 x10^3/uL (0.0-1.1) Eosinophils # (Auto) 0.2 x10^3/uL (0.0-0.7) Basophils # (Auto) 0.0 x10^3/uL (0.0-0.2) Sodium Level 150 mmol/L (136-145) Potassium Level 4.2 mmol/L (3.5-5.1) Chloride Level 118 mmol/L (98-107) Carbon Dioxide Level 23 mmol/L (21-32) Anion Gap 9 (6-14) Blood Urea Nitrogen 48 mg/dL (7-20) Creatinine 1.1 mg/dL (0.6-1.0) Estimated GFR (Cockcroft-Gault) 52.8 Glucose Level 165 mg/dL (70-99) Calcium Level 10.3 mg/dL (8.5-10.1) O2 Saturation 90 % (92-99) Arterial Blood pH 7.36 (7.35-7.45) Arterial Blood pCO2 at Patient Temp 36 mmHg (35-46) Arterial Blood pO2 at Patient Temp 63 mmHg (75-108) Arterial Blood HCO3 20 mmol/L (21-28) Arterial Blood Base Excess -5 mmol/L (-3-3) FiO2 33 Glucose (Fingerstick) 131 mg/dL (70-99) 140 mg/dL (70-99) Test 09/27/19 18:14 09/27/19 23:54 09/28/19 05:50 09/28/19 05:54 Glucose (Fingerstick) 158 mg/dL (70-99) 116 mg/dL (70-99) 152 mg/dL (70-99) White Blood Count 6.8 x10^3/uL (4.0-11.0) Red Blood Count 2.67 x10^6/uL (3.50-5.40) Hemoglobin 7.8 g/dL (12.0-15.5) Hematocrit 24.0 % (36.0-47.0) Mean Corpuscular Volume 90 fL (79-100) Mean Corpuscular Hemoglobin 29 pg (25-35) Mean Corpuscular Hemoglobin Concent 33 g/dL (31-37) Red Cell Distribution Width 18.0 % (11.5-14.5) Platelet Count 279 x10^3/uL (140-400) Neutrophils (%) (Auto) 71 % (31-73) Lymphocytes (%) (Auto) 20 % (24-48) Monocytes (%) (Auto) 7 % (0-9) Eosinophils (%) (Auto) 2 % (0-3) Basophils (%) (Auto) 0 % (0-3) Neutrophils # (Auto) 4.8 x10^3/uL (1.8-7.7) Lymphocytes # (Auto) 1.3 x10^3/uL (1.0-4.8) Monocytes # (Auto) 0.5 x10^3/uL (0.0-1.1) Eosinophils # (Auto) 0.1 x10^3/uL (0.0-0.7) Basophils # (Auto) 0.0 x10^3/uL (0.0-0.2) Sodium Level 147 mmol/L (136-145) Potassium Level 3.9 mmol/L (3.5-5.1) Chloride Level 117 mmol/L (98-107) Carbon Dioxide Level 23 mmol/L (21-32) Anion Gap 7 (6-14) Blood Urea Nitrogen 38 mg/dL (7-20) Creatinine 1.0 mg/dL (0.6-1.0) Estimated GFR (Cockcroft-Gault) 58.9 Glucose Level 164 mg/dL (70-99) Calcium Level 10.0 mg/dL (8.5-10.1) Laboratory Tests Test 09/27/19 12:16 09/27/19 18:14 09/27/19 23:54 09/28/19 05:50 Glucose (Fingerstick) 140 mg/dL (70-99) 158 mg/dL (70-99) 116 mg/dL (70-99) White Blood Count 6.8 x10^3/uL (4.0-11.0) Red Blood Count 2.67 x10^6/uL (3.50-5.40) Hemoglobin 7.8 g/dL (12.0-15.5) Hematocrit 24.0 % (36.0-47.0) Mean Corpuscular Volume 90 fL (79-100) Mean Corpuscular Hemoglobin 29 pg (25-35) Mean Corpuscular Hemoglobin Concent 33 g/dL (31-37) Red Cell Distribution Width 18.0 % (11.5-14.5) Platelet Count 279 x10^3/uL (140-400) Neutrophils (%) (Auto) 71 % (31-73) Lymphocytes (%) (Auto) 20 % (24-48) Monocytes (%) (Auto) 7 % (0-9) Eosinophils (%) (Auto) 2 % (0-3) Basophils (%) (Auto) 0 % (0-3) Neutrophils # (Auto) 4.8 x10^3/uL (1.8-7.7) Lymphocytes # (Auto) 1.3 x10^3/uL (1.0-4.8) Monocytes # (Auto) 0.5 x10^3/uL (0.0-1.1) Eosinophils # (Auto) 0.1 x10^3/uL (0.0-0.7) Basophils # (Auto) 0.0 x10^3/uL (0.0-0.2) Sodium Level 147 mmol/L (136-145) Potassium Level 3.9 mmol/L (3.5-5.1) Chloride Level 117 mmol/L (98-107) Carbon Dioxide Level 23 mmol/L (21-32) Anion Gap 7 (6-14) Blood Urea Nitrogen 38 mg/dL (7-20) Creatinine 1.0 mg/dL (0.6-1.0) Estimated GFR (Cockcroft-Gault) 58.9 Glucose Level 164 mg/dL (70-99) Calcium Level 10.0 mg/dL (8.5-10.1) Test 09/28/19 05:54 Glucose (Fingerstick) 152 mg/dL (70-99) Medications Active Scripts Medications Dose Route/Sig Max Daily Dose Days Date Category Bisoprolol Fumarate 5 Mg Tablet 10 Mg PO DAILY 07/04/19 Reported Comments CXR 09/24/2019 IMPRESSION: Lines and tubes as described above. Left greater than right lower lobe opacities most likely pulmonary edema and left greater than right mild pleural effusions are stable. Superimposed left lower lobe pneumonia is not excluded. ct abdomen /pelvis 09/23 1. Removal of the percutaneous pigtail drainage catheters since the prior exam. Sequela of pancreatitis with extensive pseudocysts again demonstrated, the right-sided collections are slightly larger since the prior exam, the left-sided collections are stable. See above. 2. Moderate to large left pleural effusion with atelectasis and collapse of most of the left lower lobe, stable. Small right pleural effusion is stable. 3. Gallstone. Impression . IMPRESSION: 1. Acute hypoxemic respiratory failure secondary to ARDS status post trach, developed anemia 09/24, blood drainage from RLQ abdomen drain site, and surrounding firmness / developed septic shock / from abdomen source, required levo 6/7 s/p 3 new drains /7 with brown color drainage,was placed on AVAPS / post procedure after receiving narcotics. back on TS was On low dose levo for hypotension, now off. received aggressive IVF, impro ving renal function Bloody drainage again from KAYLIN drains turning dark brown. 2. Gallstone pancreatitis, now with ongoing bleeding from prior drain. Anemic. s/p Tx 4 units, . 3. septic shock, recurrent /7, source abdomen. , off levo now, 4. Acute kidney injury-, Off HD--renal function decling. suspect JUANA on CKD due to hypotension , improved now 5. Acute gallstone pancreatitis. 6. Hypoalbuminemia. 7. Moderate persistent effusions, s/p left thora 08/29, reaccumulation of left effusion. O2 requirement not changed. 8. New Fever- ,hypotension. suspect recurrent sepsis/ likely pancreatic source. Per ID, per surgery-- 9. Chronic anemia-- ongoing / s/p PRBC 10. Covid 19 testing negative 11. Moderate to large ascites-S/P paracentisis 12.S/P paracentisis with 4 liters removed on 08/03/19 13. S/P IR drain placement on 08/26/2019, removal 14. Depression/Anxiety 1 Plan . 1. back on trach shield-- PMV/capping as tolerated/ prn suction. 2. Follow all cultures/ PSA from pelvic drains. Abx per ID 3. Follow surgery recs-- Acute pancreatitis with persistent necrosis ---- 08/14 status post KAYLIN drain placement + C paropsilosis; 08/23 + yeast & high amylase; s/p additional drains on 08/25, removal of drains and now increase pseudocyst and increase fluid collection. likely infected fluid/ sepsis. Initiated BS abx.follow surgery rec, planning surgical intervention next week 4. Follow ID recs for ABX-- 5. Follow nephrology recs --- 6. Continue TPN 7. monitor HGB, 4 units since 09/23 8. hold off on thoracentesis . effusion small to moderate , monitor for now 10. s/p thoracentesis, 08/29, 3 litres removed 11. d/w IR in detail DVT/GI PPX: / protonix--- holding lovenox 2/2 anemia PT/OT D/W VINAYAK MOSLEY MD Sep 28, 2019 10:35
--- NOTE | 2019-09-28 10:38 | PDOC ---
Objective: Objective: No new GI concerns per nurse. Reviewed surgery note - consideration for possible cholecystectomy, pancreatic necrosectomy. Vital Signs: Vital Signs Date Time Temp Pulse Resp B/P (MAP) Pulse Ox O2 Delivery O2 Flow Rate FiO2 09/28/19 10:23 18 98 Tracheal Collar 09/28/19 08:57 10.0 09/28/19 08:00 98.0 130 168/85 (112) 98.0 Labs: Laboratory Tests Test 09/27/19 12:16 09/27/19 18:14 09/27/19 23:54 09/28/19 05:50 Glucose (Fingerstick) 140 mg/dL 158 mg/dL 116 mg/dL White Blood Count 6.8 x10^3/uL Red Blood Count 2.67 x10^6/uL Hemoglobin 7.8 g/dL Hematocrit 24.0 % Mean Corpuscular Volume 90 fL Mean Corpuscular Hemoglobin 29 pg Mean Corpuscular Hemoglobin Concent 33 g/dL Red Cell Distribution Width 18.0 % Platelet Count 279 x10^3/uL Neutrophils (%) (Auto) 71 % Lymphocytes (%) (Auto) 20 % Monocytes (%) (Auto) 7 % Eosinophils (%) (Auto) 2 % Basophils (%) (Auto) 0 % Neutrophils # (Auto) 4.8 x10^3/uL Lymphocytes # (Auto) 1.3 x10^3/uL Monocytes # (Auto) 0.5 x10^3/uL Eosinophils # (Auto) 0.1 x10^3/uL Basophils # (Auto) 0.0 x10^3/uL Sodium Level 147 mmol/L Potassium Level 3.9 mmol/L Chloride Level 117 mmol/L Carbon Dioxide Level 23 mmol/L Anion Gap 7 Blood Urea Nitrogen 38 mg/dL Creatinine 1.0 mg/dL Estimated GFR (Cockcroft-Gault) 58.9 Glucose Level 164 mg/dL Calcium Level 10.0 mg/dL Test 09/28/19 05:54 Glucose (Fingerstick) 152 mg/dL PE: GEN: resting LUNGS: trach collar HEART: tachycardic ABD: soft, drains w/ dark blood - lesser amount NEURO/PSYCH: briefly opens eyes A/P: Pancreatitis, MOSF -- Continue support. Justicifation of Admission Dx: Justifications for Admission: Justification of Admission Dx: Yes CYNDEE FALCON Sep 28, 2019 10:38
[2019-09-28] MEDS: TPN PER PHARMACY MC PRN (10:39)
--- NOTE | 2019-09-28 10:41 | NUR ---
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, 8 inches Weight: 79.5 kg Current diet: NPO LABS: Sodium: 147 Potassium: 3.9 Chloride: 117 Calcium: 10.0 Corrected Calcium: 12.00 Magnesium: 2.4 CO2: 23 SCr: 1 Glucose: 116-164 Albumin: 1.5 AST: 15 ALT: 12 TPN FORMULA: TPN TYPE: Central Continuous AMINO ACIDS: 75 gm DEXTROSE: 250 gm LIPIDS: 20 gm POTASSIUM ACETATE: 40 mEq MAGNESIUM: 5 mEq INSULIN: 30 units MULTIPLE VITAMIN: 10 ml TRACE ELEMENTS: 1 ml(s) TPN PLAN: Cont same R: Continue TPN Will monitor electrolytes, glucose, and tolerance to TPN. Raeann Mcdonnell RPH, 09/28/19 [id number]
[2019-09-28] MEDS: MICAFUNGIN 100 MG in IV DEXTROSE 5% 100ML 100 ML IV SCH (12:09)
--- NOTE | 2019-09-28 13:00 | NUR ---
SS following up with discharge planning. SS reviewed pt chart and discussed with pt RN. Pt currently remains on trach collar and TPN. Pt on IV Meropenem and Micafungin. Pt max assist with PT/OT. Pt has three drains. SS will continue to follow for discharge planning.
[2019-09-28] MEDS: PROCHLORPERAZINE 10 MG/2 ML VIAL. IV PRN (14:33)
[2019-09-28] MEDS: ONDANSETRON PF 4 MG/2 ML VIAL. IV PRN (15:34)
[2019-09-28] MEDS: fentaNYL 50MCG/HR PATCH 1 PATCH PATCH.TD72 TD SCH (21:00)
[2019-09-28] MEDS ORDERED: DEXTROSE 70% IV SCH ×8 (22:00)
[2019-09-28] MEDS ORDERED: TOTAL PARENTERAL NUTRITION IV SCH ×8 (22:00)
[2019-09-28] MEDS ORDERED: AMINO ACID IV SCH ×8 (22:00)
[2019-09-28] MEDS ORDERED: [UNRECOGNIZED DRUG - OTHER] IV SCH ×8 (22:00)
[2019-09-28] MEDS: ACETAMINOPHEN 650 MG SUPP.RECT. PR PRN (22:16)
[2019-09-29] VITALS (23 sets, daily range): BP systolic 104–192; BP diastolic 54–86
[2019-09-29] MEDS: IV NORMAL SALINE 1000ML BAG 1,000 ML IV SCH ×3 (02:13→13:52)
[2019-09-29] MEDS: fentaNYL PF VIAL 100 MCG/2 ML VIAL IVP PRN ×4 (03:19→22:50)
[2019-09-29] MEDS: INSULIN LISPRO 300 UNITS/3 ML VIAL. SQ SCH ×4 (06:10→17:53)
[2019-09-29 06:53] LABS: ALBUMIN 1.3 g/dL (3.4-5.0); ALBUMIN/GLOBULIN RATIO 0.3 (1.0-1.7); CALCIUM 9.9 mg/dL (8.5-10.1); CREATININE 0.9 mg/dL (0.6-1.0); GFR 66.5; MAGNESIUM 1.8 mg/dL (1.8-2.4); POTASSIUM 4.1 mmol/L (3.5-5.1); TOTAL BILIRUBIN 0.4 mg/dL (0.2-1.0); TOTAL PROTEIN 5.2 g/dL (6.4-8.2)
--- NOTE | 2019-09-29 07:55 | PDOC ---
Infectious Disease Note Subjective: Subjective Patient lethargic, weak Tachycardic, Tachypneic, on trach shield s/p PRBC 1 unit yesterday Continues to have blood stained drainage from drains T max 100.3 Vital Signs: Vital Signs Vital Signs Date Time Temp Pulse Resp B/P (MAP) Pulse Ox O2 Delivery O2 Flow Rate FiO2 09/29/19 07:00 140 42 168/78 (108) 96 Tracheal Collar 10.0 09/29/19 04:00 98.1 98.1 Physical Exam: PHYSICAL EXAM GENERAL: Lethargic, opens eyes transiently HEENT: NGT in place. Oral mucosa dry NECK: Tracheostomy LUNGS: Diminished aeration bases, no accessory muscle use HEART: S1, S2, tachy, regular ABDOMEN: Mild distention, bowel sounds present, soft, grimaces to palpation Right lateral side drainage bag, 3 drains with bloodstained drainage : Lind ( 09/24) EXTREMITIES: Trace edema .no cyanosis SKIN: no signs of gen rash [employer]K [employer]: Lethargic very weak LUE-PICC (09/15) without signs of complications Medications: Inpatient Meds: Current Medications Medications (Trade) Dose Ordered Sig/Yvon Start Time Stop Time Status Last Admin Dose Admin Acetaminophen (Tylenol Supp) 650 mg PRN Q6HRS PRN 07/12/19 10:30 09/28/19 22:16 650 MG Acetaminophen (Tylenol) 650 mg PRN Q6HRS PRN 07/09/19 03:36 08/31/19 10:25 DC 08/04/19 19:56 650 MG Albumin Human 500 ml @ 125 mls/hr 1X ONCE 09/25/19 08:15 09/25/19 12:14 DC 09/25/19 08:10 125 MLS/HR Albuterol Sulfate (Ventolin Neb Soln) 2.5 mg 1X ONCE 07/05/19 22:30 07/05/19 22:31 DC 07/06/19 00:56 2.5 MG Alteplase, Recombinant (Cathflo For Central Catheter Clearance) 1 mg 1X ONCE 08/12/19 10:45 08/12/19 10:46 DC 08/12/19 11:44 1 MG Amino Acids/ Glycerin/ Electrolytes 1,000 ml @ 75 mls/hr [id number] 4/20/20 21:15 UNV Artificial Tears (Artificial Tears) 1 drop PRN Q15MIN PRN 08/17/19 05:30 09/16/19 10:08 1 DROP Atenolol (Tenormin) 100 mg DAILY 07/05/19 09:00 07/04/19 20:08 DC Atropine Sulfate (ATROPINE 0.5mg SYRINGE) 0.5 mg PRN Q5MIN PRN 07/21/19 08:15 Barium Sulfate (Varibar Thin Liquid Apple) 148 gm 1X ONCE 09/13/19 11:45 09/13/19 11:49 DC Benzocaine (Hurricaine One) 1 spray 1X ONCE 07/08/19 14:30 07/08/19 14:31 DC 07/08/19 16:38 1 SPRAY Bisacodyl (Dulcolax Supp) 10 mg STK-MED ONCE 08/15/19 10:59 08/15/19 10:59 DC Bumetanide (Bumex) 2 mg DAILY 08/26/19 10:00 09/05/19 17:15 DC 09/05/19 08:07 2 MG Bupivacaine HCl/ Epinephrine Bitart (Sensorcain-Epi 0.5%-1:165107 Mpf) 30 ml STK-MED ONCE 08/15/19 10:58 08/15/19 10:58 DC 08/15/19 12:01 7 ML Calcium Carbonate/ Glycine (Tums) 500 mg PRN AFTMEALHC PRN 07/06/19 17:45 08/31/19 10:25 DC Calcium Chloride 1000 mg/Sodium Chloride 110 ml @ 220 mls/hr 1X ONCE 07/05/19 22:30 07/05/19 22:59 DC 07/05/19 22:11 220 MLS/HR Calcium Chloride 3000 mg/Sodium Chloride 1,030 ml @ 50 mls/hr [id number] 07/07/19 08:00 07/09/19 15:23 DC 07/09/19 02:17 50 MLS/HR Calcium Gluconate (Calcium Gluconate) 2,000 mg 1X ONCE 07/07/19 02:15 07/07/19 02:16 DC 07/07/19 02:19 2,000 MG Calcium Gluconate 1000 mg/Sodium Chloride 110 ml @ 220 mls/hr 1X ONCE 07/06/19 03:30 07/06/19 03:59 DC 07/06/19 03:21 220 MLS/HR Calcium Gluconate 2000 mg/Sodium Chloride 120 ml @ 220 mls/hr 1X ONCE 07/06/19 07:30 07/06/19 08:02 DC 07/06/19 09:05 220 MLS/HR Cefepime HCl (Maxipime) 2 gm Q12HR 07/13/19 09:00 07/27/19 09:58 DC 07/26/19 20:56 2 GM Cellulose (Surgicel Fibrillar 1x2) 1 each STK-MED ONCE 07/25/19 11:00 07/25/19 11:01 DC Cellulose (Surgicel Hemostat 2x14) 1 each STK-MED ONCE 08/15/19 10:58 08/15/19 10:59 DC Cellulose (Surgicel Hemostat 4x8) 1 each STK-MED ONCE 08/15/19 10:58 08/15/19 10:59 DC Cyclobenzaprine HCl (Flexeril) 10 mg PRN Q6HRS PRN 08/18/19 10:45 Daptomycin 410 mg/ Sodium Chloride 50 ml @ 100 mls/hr Q24H 09/25/19 14:00 09/28/19 08:30 DC 09/27/19 13:33 100 MLS/HR Daptomycin 430 mg/ Sodium Chloride 50 ml @ 100 mls/hr Q24H 08/13/19 13:00 08/18/19 20:58 DC 08/18/19 13:00 100 MLS/HR Daptomycin 450 mg/ Sodium Chloride 50 ml @ 100 mls/hr Q24H 09/04/19 09:00 09/08/19 08:30 DC 09/07/19 09:25 100 MLS/HR Daptomycin 485 mg/ Sodium Chloride 50 ml @ 100 mls/hr Q24H 08/22/19 11:00 08/30/19 07:44 DC 08/29/19 13:10 100 MLS/HR Daptomycin 500 mg/ Sodium Chloride 50 ml @ 100 mls/hr Q48H 07/13/19 08:30 07/29/19 10:07 DC 07/29/19 09:57 100 MLS/HR Dexamethasone Sodium Phosphate (Decadron) 4 mg STK-MED ONCE 08/15/19 10:56 08/15/19 10:57 DC Dexmedetomidine HCl 400 mcg/ Sodium Chloride 100 ml @ 0 mls/hr CONT PRN 07/21/19 08:15 09/17/19 18:31 DC 09/17/19 12:57 8 MLS/HR Dextrose (Dextrose 50%-Water Syringe) 12.5 gm PRN Q15MIN PRN 07/04/19 09:30 Digoxin (Lanoxin) 125 mcg 1X ONCE 07/07/19 18:00 07/07/19 18:01 DC 07/07/19 17:10 125 MCG Diphenhydramine HCl (Benadryl) 25 mg 1X PRN PRN 08/12/19 15:45 08/13/19 15:44 DC Duloxetine HCl (Cymbalta) 30 mg DAILY 08/28/19 14:00 08/31/19 10:25 DC 08/29/19 09:48 30 MG Enoxaparin Sodium (Lovenox 100mg Syringe) 100 mg Q12HR 08/09/19 21:00 UNV Enoxaparin Sodium (Lovenox 40mg Syringe) 40 mg Q24H 09/04/19 17:00 09/25/19 06:50 DC 09/23/19 17:44 40 MG Etomidate (Amidate) 8 mg 1X ONCE 07/11/19 08:30 07/11/19 08:31 DC 07/11/19 08:33 8 MG Fentanyl (Duragesic 50mcg/ Hr Patch) 1 patch Q72H 09/22/19 21:00 09/22/19 21:22 1 PATCH Fentanyl Citrate (Fentanyl 2ml Vial) 100 mcg 1X ONCE 09/25/19 15:00 09/25/19 15:01 DC 09/25/19 15:28 50 MCG Fentanyl Citrate (Fentanyl 5ml Vial) 250 mcg 1X ONCE 08/26/19 09:15 08/26/19 09:16 DC 08/26/19 09:30 50 MCG Flumazenil (Romazicon) 0.5 mg STK-MED ONCE 09/25/19 14:48 09/25/19 14:48 DC Fluoxetine HCl (PROzac) 20 mg QHS 09/22/19 21:00 09/28/19 21:26 20 MG Furosemide (Lasix) 40 mg DAILY 09/21/19 13:30 09/25/19 09:12 DC 09/23/19 11:14 40 MG Haloperidol Lactate (Haldol Inj) 3 mg 1X ONCE 08/22/19 14:30 08/22/19 14:31 DC 08/22/19 14:37 3 MG Heparin Sodium (Porcine) (Hep Lock Adult) 500 unit STK-MED ONCE 07/26/19 09:29 07/26/19 09:30 DC Heparin Sodium (Porcine) (Heparin Sodium) 5,000 unit Q12HR 08/15/19 21:00 08/25/19 09:59 DC 08/24/19 20:57 5,000 UNIT Heparin Sodium (Porcine) 1000 unit/Sodium Chloride 1,001 ml @ 1,001 mls/hr 1X ONCE 08/15/19 12:00 08/15/19 12:59 DC Hydromorphone HCl (Dilaudid Standard VISITOR INFORMATION ASSISTANT) 12 mg STK-MED ONCE 08/19/19 15:50 08/30/19 11:24 DC Hydromorphone HCl (Dilaudid) 1 mg PRN Q4HRS PRN 08/22/19 19:00 09/05/19 17:10 DC 09/05/19 06:25 1 MG Info (CONTRAST GIVEN -- Rx MONITORING) 1 each PRN DAILY PRN 07/18/19 11:45 07/20/19 11:44 DC Info (Icu Electrolyte Protocol) 1 ea CONT PRN PRN 07/17/19 13:15 Info (PHARMACY MONITORING -- do not chart) 1 each PRN DAILY PRN 08/12/19 15:45 09/13/19 14:14 DC Info (Tpn Per Pharmacy) 1 each PRN DAILY PRN 07/06/19 12:30 UNV Insulin Human Lispro (HumaLOG) 0-9 UNITS Q6HRS 07/04/19 09:30 09/29/19 06:10 4 UNITS Insulin Human Regular (HumuLIN R VIAL) 5 unit 1X ONCE 07/05/19 22:30 07/05/19 22:31 DC 07/05/19 22:14 5 UNIT Iohexol (Omnipaque 240 Mg/ml) 30 ml 1X ONCE 07/18/19 11:30 07/18/19 11:33 DC 07/18/19 11:30 30 ML Iohexol (Omnipaque 300 Mg/ml) 50 ml STK-MED ONCE 08/15/19 10:58 08/15/19 10:59 DC Iohexol (Omnipaque 350 Mg/ml) 90 ml 1X ONCE 07/04/19 03:30 07/04/19 03:31 DC 07/04/19 03:25 90 ML Ketorolac Tromethamine (Toradol 30mg Vial) 30 mg 1X ONCE 07/04/19 03:00 07/04/19 03:01 DC 07/04/19 02:54 30 MG Lidocaine HCl (Buffered Lidocaine 1%) 6 ml 1X ONCE 08/30/19 14:15 08/30/19 14:16 DC 08/30/19 14:15 3 ML Lidocaine HCl (Glydo (Lidocaine) Jelly) 1 ramu 1X ONCE 07/08/19 14:30 07/08/19 14:31 DC 07/08/19 16:38 1 RAMU Lidocaine HCl (Lidocaine 1% 20ml Vial) 20 ml 1X ONCE 09/25/19 15:00 09/25/19 15:01 DC 09/25/19 15:30 20 ML Lidocaine HCl (Xylocaine-Mpf 1% 2ml Vial) 2 ml PRN 1X PRN 08/15/19 07:00 08/16/19 06:59 DC Linezolid/Dextrose 300 ml @ 300 mls/hr Q12HR 09/04/19 09:00 09/07/19 08:11 DC 09/06/19 21:08 300 MLS/HR Lorazepam (Ativan Inj) 0.25 mg PRN Q4HRS PRN 09/21/19 07:30 09/29/19 05:53 0.25 MG Magnesium Sulfate 50 ml @ 25 mls/hr 1X ONCE 08/28/19 09:00 08/28/19 10:59 DC 08/28/19 10:44 25 MLS/HR Meropenem 1 gm/ Sodium Chloride 100 ml @ 200 mls/hr Q12HR 09/25/19 21:00 09/28/19 21:26 200 MLS/HR Meropenem 500 mg/ Sodium Chloride 50 ml @ 100 mls/hr Q6HRS 09/12/19 18:00 09/14/19 09:59 DC 09/14/19 06:02 100 MLS/HR Metoclopramide HCl (Reglan Vial) 10 mg PRN Q3HRS PRN 08/27/19 16:45 09/01/19 04:25 10 MG Metoprolol Tartrate (Lopressor Vial) 5 mg PRN Q6HRS PRN 09/28/19 09:00 Metronidazole 100 ml @ 100 mls/hr Q8HRS 08/02/19 10:00 08/09/19 08:10 DC 08/09/19 06:04 100 MLS/HR Micafungin Sodium 100 mg/Dextrose 100 ml @ 100 mls/hr Q24H 09/25/19 11:00 09/28/19 12:09 100 MLS/HR Midazolam HCl (Versed) 2 mg 1X ONCE 09/25/19 15:00 09/25/19 15:01 DC 09/25/19 15:28 1 MG Midazolam HCl 100 mg/Sodium Chloride 100 ml @ 7 mls/hr CONT PRN 07/16/19 16:00 09/21/19 14:38 DC 07/27/19 15:35 7 MLS/HR Midazolam HCl 50 mg/Sodium Chloride 50 ml @ 0 mls/hr CONT PRN 07/11/19 08:15 07/16/19 15:59 DC 07/14/19 22:39 7 MLS/HR Morphine Sulfate (Morphine Sulfate) 2 mg PRN Q2HR PRN 07/04/19 05:00 07/05/19 14:15 DC 07/05/19 12:26 2 MG Multi-Ingred Cream/Lotion/Oil/ Oint (Artificial Tears Eye Ointment) 1 ramu PRN Q1HR PRN 07/13/19 17:30 09/21/19 14:39 DC 08/01/19 08:19 1 RAMU Naloxone HCl (Narcan) 0.4 mg STK-MED ONCE 09/25/19 14:48 09/25/19 14:48 DC Norepinephrine Bitartrate 8 mg/ Dextrose 258 ml @ 13.332 mls/ hr CONT PRN 09/25/19 06:30 09/25/19 21:46 13.332 MLS/HR Ondansetron HCl (Zofran) 4 mg STK-MED ONCE 08/15/19 10:56 08/15/19 10:57 DC Pantoprazole Sodium (PROTONIX VIAL for IV PUSH) 40 mg DAILYAC 07/04/19 11:30 09/28/19 08:17 40 MG Phenylephrine HCl (PHENYLEPHRINE in 0.9% NACL PF) 1 mg STK-MED ONCE 08/15/19 12:34 08/15/19 12:34 DC Piperacillin Sod/ Tazobactam Sod 3.375 gm/Sodium Chloride 50 ml @ 100 mls/hr Q6HRS 09/14/19 12:00 09/22/19 07:26 DC 09/22/19 06:10 100 MLS/HR Piperacillin Sod/ Tazobactam Sod 4.5 gm/Sodium Chloride 100 ml @ 200 mls/hr 1X ONCE 07/04/19 06:00 07/04/19 06:29 DC 07/04/19 05:44 200 MLS/HR Potassium Chloride 110 meq/ Magnesium Sulfate 20 meq/ Multivitamins 10 ml/Chromium/ Copper/Manganese/ Seleni/Zn 1 ml/ Insulin Human Regular 15 unit/ Total Parenteral Nutrition/Amino Acids/Dextrose/ Fat Emulsion Intravenous 1,800 ml @ 75 mls/hr TPN CONT 09/11/19 22:00 09/12/19 21:59 DC 09/11/19 22:48 75 MLS/HR Potassium Chloride 15 meq/ Bicarbonate Dialysis Soln w/ out KCl 5,007.5 ml @ 1,000 mls/ hr Q5H1M 07/17/19 20:00 07/21/19 13:08 DC 07/20/19 18:14 1,000 MLS/HR Potassium Chloride 20 meq/ Bicarbonate Dialysis Soln w/ out KCl 5,010 ml @ 1,000 mls/hr Q5H1M 07/13/19 16:00 07/17/19 19:59 DC 07/17/19 14:54 1,000 MLS/HR Potassium Chloride 40 meq/ Potassium Acetate 60 meq/Magnesium Sulfate 10 meq/ Multivitamins 10 ml/Chromium/ Copper/Manganese/ Seleni/Zn 1 ml/ Insulin Human Regular 20 unit/ Total Parenteral Nutrition/Amino Acids/Dextrose/ Fat Emulsion Intravenous 1,800 ml @ 75 mls/hr TPN CONT 09/22/19 22:00 09/23/19 21:59 DC 09/23/19 00:03 75 MLS/HR Potassium Chloride 70 meq/ Magnesium Sulfate 20 meq/ Multivitamins 10 ml/Chromium/ Copper/Manganese/ Seleni/Zn 1 ml/ Insulin Human Regular 15 unit/ Total Parenteral Nutrition/Amino Acids/Dextrose/ Fat Emulsion Intravenous 1,800 ml @ 75 mls/hr TPN CONT 09/16/19 22:00 09/17/19 21:59 DC 09/16/19 23:13 75 MLS/HR Potassium Chloride 75 meq/ Magnesium Sulfate 15 meq/ Multivitamins 10 ml/Chromium/ Copper/Manganese/ Seleni/Zn 0.5 ml/ Insulin Human Regular 15 unit/ Total Parenteral Nutrition/Amino Acids/Dextrose/ Fat Emulsion Intravenous 1,920 ml @ 80 mls/hr TPN CONT 08/27/19 22:00 08/28/19 21:59 DC 08/27/19 22:41 80 MLS/HR Potassium Chloride 75 meq/ Magnesium Sulfate 15 meq/Calcium Gluconate 8 meq/ Multivitamins 10 ml/Chromium/ Copper/Manganese/ Seleni/Zn 0.5 ml/ Insulin Human Regular 15 unit/ Total Parenteral Nutrition/Amino Acids/Dextrose/ Fat Emulsion Intravenous 1,920 ml @ 80 mls/hr TPN CONT 08/25/19 22:00 08/26/19 21:59 DC 08/25/19 22:28 80 MLS/HR Potassium Chloride 75 meq/ Magnesium Sulfate 15 meq/Calcium Gluconate 8 meq/ Multivitamins 10 ml/Chromium/ Copper/Manganese/ Seleni/Zn 0.5 ml/ Insulin Human Regular 20 unit/ Total Parenteral Nutrition/Amino Acids/Dextrose/ Fat Emulsion Intravenous 1,920 ml @ 80 mls/hr TPN CONT 08/24/19 22:00 08/25/19 21:59 DC 08/24/19 22:00 80 MLS/HR Potassium Chloride 75 meq/ Magnesium Sulfate 15 meq/Calcium Gluconate 8 meq/ Multivitamins 10 ml/Chromium/ Copper/Manganese/ Seleni/Zn 0.5 ml/ Insulin Human Regular 25 unit/ Total Parenteral Nutrition/Amino Acids/Dextrose/ Fat Emulsion Intravenous 1,920 ml @ 80 mls/hr TPN CONT 08/22/19 22:00 08/23/19 21:59 DC 08/22/19 23:08 80 MLS/HR Potassium Chloride 75 meq/ Magnesium Sulfate 20 meq/Calcium Gluconate 10 meq/ Multivitamins 10 ml/Chromium/ Copper/Manganese/ Seleni/Zn 0.5 ml/ Insulin Human Regular 25 unit/ Total Parenteral Nutrition/Amino Acids/Dextrose/ Fat Emulsion Intravenous 1,920 ml @ 80 mls/hr TPN CONT 08/21/19 22:00 08/22/19 21:59 DC 08/21/19 22:04 80 MLS/HR Potassium Chloride 75 meq/ Magnesium Sulfate 20 meq/Calcium Gluconate 10 meq/ Multivitamins 10 ml/Chromium/ Copper/Manganese/ Seleni/Zn 0.5 ml/ Insulin Human Regular 30 unit/ Total Parenteral Nutrition/Amino Acids/Dextrose/ Fat Emulsion Intravenous 1,920 ml @ 80 mls/hr TPN CONT 08/20/19 22:00 08/21/19 22:00 DC 08/20/19 21:51 80 MLS/HR Potassium Chloride 80 meq/ Magnesium Sulfate 20 meq/ Multivitamins 10 ml/Chromium/ Copper/Manganese/ Seleni/Zn 0.5 ml/ Insulin Human Regular 15 unit/ Total Parenteral Nutrition/Amino Acids/Dextrose/ Fat Emulsion Intravenous 1,920 ml @ 80 mls/hr TPN CONT 08/30/19 22:00 08/31/19 21:59 DC 08/30/19 21:40 80 MLS/HR Potassium Chloride 80 meq/ Magnesium Sulfate 20 meq/ Multivitamins 10 ml/Chromium/ Copper/Manganese/ Seleni/Zn 1 ml/ Insulin Human Regular 15 unit/ Total Parenteral Nutrition/Amino Acids/Dextrose/ Fat Emulsion Intravenous 1,800 ml @ 75 mls/hr TPN CONT 09/18/19 22:00 09/19/19 21:59 DC 09/18/19 21:54 75 MLS/HR Potassium Chloride 90 meq/ Magnesium Sulfate 20 meq/ Multivitamins 10 ml/Chromium/ Copper/Manganese/ Seleni/Zn 1 ml/ Insulin Human Regular 15 unit/ Total Parenteral Nutrition/Amino Acids/Dextrose/ Fat Emulsion Intravenous 1,800 ml @ 75 mls/hr TPN CONT 09/07/19 22:00 09/08/19 21:59 DC 09/07/19 22:28 75 MLS/HR Potassium Chloride 90 meq/ Magnesium Sulfate 20 meq/ Multivitamins 10 ml/Chromium/ Copper/Manganese/ Seleni/Zn 1 ml/ Insulin Human Regular 20 unit/ Total Parenteral Nutrition/Amino Acids/Dextrose/ Fat Emulsion Intravenous 1,800 ml @ 75 mls/hr TPN CONT 09/21/19 22:00 09/22/19 21:59 DC 09/21/19 23:13 75 MLS/HR Potassium Chloride/Water 100 ml @ 100 mls/hr 1X ONCE 09/19/19 10:00 09/19/19 10:59 DC 09/19/19 10:15 100 MLS/HR Potassium Phosphate 20 mmol/ Sodium Chloride 106.6667 ml @ 51.667 m... 1X ONCE 07/13/19 13:00 07/13/19 15:03 DC 07/13/19 12:51 51.667 MLS/HR Potassium Acetate 30 meq/Magnesium Sulfate 20 meq/ Calcium Gluconate 10 meq/ Multivitamins 10 ml/Chromium/ Copper/Manganese/ Seleni/Zn 0.5 ml/ Insulin Human Regular 30 unit/ Potassium Chloride 30 meq/ Total Parenteral Nutrition/Amino Acids/Dextrose/ Fat Emulsion Intravenous 1,920 ml @ 80 mls/hr TPN CONT 08/19/19 22:00 08/20/19 21:59 DC 08/19/19 22:34 80 MLS/HR Potassium Acetate 40 meq/Magnesium Sulfate 5 meq/ Multivitamins 10 ml/Chromium/ Copper/Manganese/ Seleni/Zn 1 ml/ Insulin Human Regular 30 unit/ Total Parenteral Nutrition/Amino Acids/Dextrose/ Fat Emulsion Intravenous 1,920 ml @ 80 mls/hr TPN CONT 09/28/19 22:00 09/29/19 21:59 09/28/19 21:26 80 MLS/HR Potassium Acetate 55 meq/Magnesium Sulfate 20 meq/ Calcium Gluconate 10 meq/ Multivitamins 10 ml/Chromium/ Copper/Manganese/ Seleni/Zn 0.5 ml/ Insulin Human Regular 30 unit/ Total Parenteral Nutrition/Amino Acids/Dextrose/ Fat Emulsion Intravenous 1,920 ml @ 80 mls/hr TPN CONT 08/18/19 22:00 08/19/19 21:59 DC 08/19/19 01:00 80 MLS/HR Potassium Acetate 55 meq/Magnesium Sulfate 20 meq/ Calcium Gluconate 10 meq/ Multivitamins 10 ml/Chromium/ Copper/Manganese/ Seleni/Zn 0.5 ml/ Insulin Human Regular 35 unit/ Total Parenteral Nutrition/Amino Acids/Dextrose/ Fat Emulsion Intravenous 1,920 ml @ 80 mls/hr TPN CONT 08/16/19 22:00 08/17/19 21:59 DC 08/16/19 22:02 80 MLS/HR Potassium Acetate 60 meq/Magnesium Sulfate 5 meq/ Multivitamins 10 ml/Chromium/ Copper/Manganese/ Seleni/Zn 1 ml/ Insulin Human Regular 30 unit/ Total Parenteral Nutrition/Amino Acids/Dextrose/ Fat Emulsion Intravenous 1,920 ml @ 80 mls/hr TPN CONT 09/24/19 22:00 09/25/19 21:59 DC 09/24/19 21:54 80 MLS/HR Potassium Acetate 65 meq/Magnesium Sulfate 20 meq/ Calcium Gluconate 10 meq/ Multivitamins 10 ml/Chromium/ Copper/Manganese/ Seleni/Zn 0.5 ml/ Insulin Human Regular 30 unit/ Total Parenteral Nutrition/Amino Acids/Dextrose/ Fat Emulsion Intravenous 1,920 ml @ 80 mls/hr TPN CONT 08/17/19 22:00 08/18/19 21:59 DC 08/17/19 22:22 80 MLS/HR Potassium Acetate 80 meq/Magnesium Sulfate 5 meq/ Multivitamins 10 ml/Chromium/ Copper/Manganese/ Seleni/Zn 1 ml/ Insulin Human Regular 20 unit/ Total Parenteral Nutrition/Amino Acids/Dextrose/ Fat Emulsion Intravenous 1,920 ml @ 80 mls/hr TPN CONT 09/23/19 22:00 09/24/19 21:59 DC 09/23/19 21:59 80 MLS/HR Prochlorperazine Edisylate (Compazine) 5 mg PACU PRN PRN 08/15/19 07:00 08/16/19 06:59 DC Propofol 20 ml @ As Directed STK-MED ONCE 08/15/19 12:26 08/15/19 12:27 DC Ringer's Solution 1,000 ml @ 30 mls/hr Q24H 08/15/19 07:00 08/15/19 18:59 DC Rocuronium [place] (Zemuron) 50 mg STK-MED ONCE 08/15/19 10:56 08/15/19 10:57 DC Saliva Substitute (Biotene Moisturizing Mouth) 2 spray PRN Q15MIN PRN 09/08/19 11:00 Sevoflurane (Ultane) 60 ml STK-MED ONCE 08/15/19 12:26 08/15/19 12:27 DC Sodium Bicarbonate 50 meq/Sodium Chloride 1,050 ml @ 75 mls/hr Q14H 07/06/19 07:30 07/11/19 10:28 DC 07/10/19 21:10 75 MLS/HR Sodium Acetate 50 meq/Potassium Acetate 55 meq/ Magnesium Sulfate 20 meq/Calcium Gluconate 10 meq/ Multivitamins 10 ml/Chromium/ Copper/Manganese/ Seleni/Zn 0.5 ml/ Insulin Human Regular 35 unit/ Total Parenteral Nutrition/Amino Acids/Dextrose/ Fat Emulsion Intravenous 1,800 ml @ 75 mls/hr TPN CONT 08/13/19 22:00 08/14/19 21:59 DC 08/13/19 22:03 75 MLS/HR Sodium Bicarbonate (Sodium Bicarb Adult 8.4% Syr) 50 meq 1X ONCE 09/25/19 22:00 09/25/19 22:01 DC 09/25/19 21:47 50 MEQ Sodium Chloride 500 ml @ 500 mls/hr 1X ONCE 09/27/19 06:45 09/27/19 07:44 DC 09/27/19 06:39 500 MLS/HR Sodium Chloride (Normal Saline Flush) 3 ml QSHIFT PRN 08/15/19 13:45 Sodium Chloride 90 meq/Calcium Gluconate 10 meq/ Multivitamins 10 ml/Chromium/ Copper/Manganese/ Seleni/Zn 0.5 ml/ Total Parenteral Nutrition/Amino Acids/Dextrose/ Fat Emulsion Intravenous 1,512 ml @ 63 mls/hr TPN CONT 07/06/19 22:00 07/07/19 21:59 DC 07/06/19 22:06 63 MLS/HR Sodium Chloride 90 meq/Calcium Gluconate 10 meq/ Multivitamins 10 ml/Chromium/ Copper/Manganese/ Seleni/Zn 1 ml/ Total Parenteral Nutrition/Amino Acids/Dextrose/ Fat Emulsion Intravenous 55.005 ml @ 2.292 mls/hr TPN CONT 07/06/19 22:00 07/06/19 12:33 DC Sodium Chloride 90 meq/Magnesium Sulfate 10 meq/ Calcium Gluconate 20 meq/ Multivitamins 10 ml/Chromium/ Copper/Manganese/ Seleni/Zn 0.5 ml/ Total Parenteral Nutrition/Amino Acids/Dextrose/ Fat Emulsion Intravenous 1,512 ml @ 63 mls/hr TPN CONT 07/07/19 22:00 07/08/19 21:59 DC 07/07/19 22:25 63 MLS/HR Sodium Chloride 90 meq/Magnesium Sulfate 12 meq/ Calcium Gluconate 15 meq/ Multivitamins 10 ml/Chromium/ Copper/Manganese/ Seleni/Zn 0.5 ml/ Insulin Human Regular 25 unit/ Total Parenteral Nutrition/Amino Acids/Dextrose/ Fat Emulsion Intravenous 1,400 ml @ 58.333 mls/ hr TPN CONT 07/27/19 22:00 07/28/19 21:59 DC 07/27/19 21:41 58.333 MLS/HR Sodium Chloride 90 meq/Potassium Chloride 15 meq/ Magnesium Sulfate 12 meq/Calcium Gluconate 15 meq/ Multivitamins 10 ml/Chromium/ Copper/Manganese/ Seleni/Zn 0.5 ml/ Insulin Human Regular 25 unit/ Total Parenteral Nutrition/Amino Acids/Dextrose/ Fat Emulsion Intravenous 1,400 ml @ 58.333 mls/ hr TPN CONT 07/26/19 22:00 07/27/19 21:59 DC 07/26/19 22:13 58.333 MLS/HR Sodium Chloride 90 meq/Potassium Chloride 15 meq/ Potassium Phosphate 10 mmol/ Magnesium Sulfate 8 meq/Calcium Gluconate 15 meq/ Multivitamins 10 ml/Chromium/ Copper/Manganese/ Seleni/Zn 0.5 ml/ Insulin Human Regular 25 unit/ Total Parenteral Nutrition/Amino Acids/Dextrose/ Fat Emulsion Intravenous 1,400 ml @ 58.333 mls/ hr TPN CONT 07/24/19 22:00 07/25/19 21:59 DC 07/24/19 21:20 58.333 MLS/HR Sodium Chloride 90 meq/Potassium Chloride 15 meq/ Potassium Phosphate 10 mmol/ Magnesium Sulfate 10 meq/Calcium Gluconate 20 meq/ Multivitamins 10 ml/Chromium/ Copper/Manganese/ Seleni/Zn 0.5 ml/ Total Parenteral Nutrition/Amino Acids/Dextrose/ Fat Emulsion Intravenous 1,400 ml @ 58.333 mls/ hr TPN CONT 07/11/19 22:00 07/12/19 21:59 DC 07/11/19 21:42 58.333 MLS/HR Sodium Chloride 90 meq/Potassium Chloride 15 meq/ Potassium Phosphate 10 mmol/ Magnesium Sulfate 12 meq/Calcium Gluconate 15 meq/ Multivitamins 10 ml/Chromium/ Copper/Manganese/ Seleni/Zn 0.5 ml/ Insulin Human Regular 25 unit/ Total Parenteral Nutrition/Amino Acids/Dextrose/ Fat Emulsion Intravenous 1,400 ml @ 58.333 mls/ hr TPN CONT 07/25/19 22:00 07/26/19 21:59 DC 07/25/19 22:24 58.333 MLS/HR Sodium Chloride 90 meq/Potassium Chloride 15 meq/ Potassium Phosphate 15 mmol/ Magnesium Sulfate 10 meq/Calcium Gluconate 15 meq/ Multivitamins 10 ml/Chromium/ Copper/Manganese/ Seleni/Zn 0.5 ml/ Total Parenteral Nutrition/Amino Acids/Dextrose/ Fat Emulsion Intravenous 1,400 ml @ 58.333 mls/ hr TPN CONT 07/12/19 22:00 07/13/19 21:59 DC 07/12/19 22:17 58.333 MLS/HR Sodium Chloride 90 meq/Potassium Chloride 15 meq/ Potassium Phosphate 15 mmol/ Magnesium Sulfate 10 meq/Calcium Gluconate 20 meq/ Multivitamins 10 ml/Chromium/ Copper/Manganese/ Seleni/Zn 0.5 ml/ Total Parenteral Nutrition/Amino Acids/Dextrose/ Fat Emulsion Intravenous 1,200 ml @ 50 mls/hr TPN CONT 07/10/19 22:00 07/10/19 14:17 DC Sodium Chloride 90 meq/Potassium Chloride 15 meq/ Potassium Phosphate 18 mmol/ Magnesium Sulfate 8 meq/Calcium Gluconate 15 meq/ Multivitamins 10 ml/Chromium/ Copper/Manganese/ Seleni/Zn 0.5 ml/ Insulin Human Regular 10 unit/ Total Parenteral Nutrition/Amino Acids/Dextrose/ Fat Emulsion Intravenous 1,400 ml @ 58.333 mls/ hr TPN CONT 07/15/19 22:00 07/16/19 21:59 DC 07/15/19 21:43 58.333 MLS/HR Sodium Chloride 90 meq/Potassium Chloride 15 meq/ Potassium Phosphate 18 mmol/ Magnesium Sulfate 8 meq/Calcium Gluconate 15 meq/ Multivitamins 10 ml/Chromium/ Copper/Manganese/ Seleni/Zn 0.5 ml/ Insulin Human Regular 15 unit/ Total Parenteral Nutrition/Amino Acids/Dextrose/ Fat Emulsion Intravenous 1,400 ml @ 58.333 mls/ hr TPN CONT 07/18/19 22:00 07/19/19 21:59 DC 07/18/19 21:47 58.333 MLS/HR Sodium Chloride 90 meq/Potassium Chloride 15 meq/ Potassium Phosphate 18 mmol/ Magnesium Sulfate 8 meq/Calcium Gluconate 15 meq/ Multivitamins 10 ml/Chromium/ Copper/Manganese/ Seleni/Zn 0.5 ml/ Insulin Human Regular 20 unit/ Total Parenteral Nutrition/Amino Acids/Dextrose/ Fat Emulsion Intravenous 1,400 ml @ 58.333 mls/ hr TPN CONT 07/21/19 22:00 07/22/19 21:59 DC 07/21/19 22:45 58.333 MLS/HR Sodium Chloride 90 meq/Potassium Chloride 15 meq/ Potassium Phosphate 18 mmol/ Magnesium Sulfate 8 meq/Calcium Gluconate 15 meq/ Multivitamins 10 ml/Chromium/ Copper/Manganese/ Seleni/Zn 0.5 ml/ Total Parenteral Nutrition/Amino Acids/Dextrose/ Fat Emulsion Intravenous 1,400 ml @ 58.333 mls/ hr TPN CONT 07/14/19 22:00 07/15/19 21:59 DC 07/14/19 22:00 58.333 MLS/HR Sodium Chloride 90 meq/Potassium Phosphate 15 mmol/ Magnesium Sulfate 12 meq/Calcium Gluconate 15 meq/ Multivitamins 10 ml/Chromium/ Copper/Manganese/ Seleni/Zn 0.5 ml/ Insulin Human Regular 30 unit/ Total Parenteral Nutrition/Amino Acids/Dextrose/ Fat Emulsion Intravenous 1,400 ml @ 58.333 mls/ hr TPN CONT 07/29/19 22:00 07/30/19 21:59 DC 07/29/19 21:49 58.333 MLS/HR Sodium Chloride 90 meq/Potassium Phosphate 15 mmol/ Magnesium Sulfate 12 meq/Calcium Gluconate 15 meq/ Multivitamins 10 ml/Chromium/ Copper/Manganese/ Seleni/Zn 0.5 ml/ Insulin Human Regular 40 unit/ Total Parenteral Nutrition/Amino Acids/Dextrose/ Fat Emulsion Intravenous 1,400 ml @ 58.333 mls/ hr TPN CONT 07/30/19 22:00 07/31/19 21:59 DC 07/30/19 21:21 58.333 MLS/HR Sodium Chloride 90 meq/Potassium Phosphate 19 mmol/ Magnesium Sulfate 12 meq/Calcium Gluconate 15 meq/ Multivitamins 10 ml/Chromium/ Copper/Manganese/ Seleni/Zn 0.5 ml/ Insulin Human Regular 40 unit/ Total Parenteral Nutrition/Amino Acids/Dextrose/ Fat Emulsion Intravenous 1,400 ml @ 58.333 mls/ hr TPN CONT 07/31/19 22:00 08/01/19 21:59 DC 07/31/19 21:54 58.333 MLS/HR Sodium Chloride 90 meq/Potassium Phosphate 5 mmol/ Magnesium Sulfate 12 meq/Calcium Gluconate 15 meq/ Multivitamins 10 ml/Chromium/ Copper/Manganese/ Seleni/Zn 0.5 ml/ Insulin Human Regular 30 unit/ Total Parenteral Nutrition/Amino Acids/Dextrose/ Fat Emulsion Intravenous 1,400 ml @ 58.333 mls/ hr TPN CONT 07/28/19 22:00 07/29/19 21:59 DC 07/28/19 22:08 58.333 MLS/HR Sodium Chloride 100 meq/Potassium Chloride 40 meq/ Magnesium Sulfate 15 meq/Calcium Gluconate 15 meq/ Multivitamins 10 ml/Chromium/ Copper/Manganese/ Seleni/Zn 0.5 ml/ Insulin Human Regular 35 unit/ Total Parenteral Nutrition/Amino Acids/Dextrose/ Fat Emulsion Intravenous 1,400 ml @ 58.333 mls/ hr TPN CONT 08/07/19 22:00 08/08/19 21:59 DC 08/07/19 22:46 58.333 MLS/HR Sodium Chloride 100 meq/Potassium Chloride 40 meq/ Magnesium Sulfate 20 meq/Calcium Gluconate 10 meq/ Multivitamins 10 ml/Chromium/ Copper/Manganese/ Seleni/Zn 0.5 ml/ Insulin Human Regular 35 unit/ Total Parenteral Nutrition/Amino Acids/Dextrose/ Fat Emulsion Intravenous 1,400 ml @ 58.333 mls/ hr TPN CONT 08/11/19 22:00 08/12/19 21:59 DC 08/12/19 00:06 58.333 MLS/HR Sodium Chloride 100 meq/Potassium Chloride 40 meq/ Magnesium Sulfate 20 meq/Calcium Gluconate 15 meq/ Multivitamins 10 ml/Chromium/ Copper/Manganese/ Seleni/Zn 0.5 ml/ Insulin Human Regular 35 unit/ Total Parenteral Nutrition/Amino Acids/Dextrose/ Fat Emulsion Intravenous 1,400 ml @ 58.333 mls/ hr TPN CONT 08/10/19 22:00 08/11/19 21:59 DC 08/10/19 22:27 58.333 MLS/HR Sodium Chloride 100 meq/Potassium Phosphate 10 mmol/ Magnesium Sulfate 12 meq/Calcium Gluconate 15 meq/ Multivitamins 10 ml/Chromium/ Copper/Manganese/ Seleni/Zn 0.5 ml/ Insulin Human Regular 35 unit/ Potassium Chloride 20 meq/ Total Parenteral Nutrition/Amino Acids/Dextrose/ Fat Emulsion Intravenous 1,400 ml @ 58.333 mls/ hr TPN CONT 08/04/19 22:00 08/05/19 21:59 DC 08/04/19 22:10 58.333 MLS/HR Sodium Chloride 100 meq/Potassium Phosphate 19 mmol/ Magnesium Sulfate 12 meq/Calcium Gluconate 15 meq/ Multivitamins 10 ml/Chromium/ Copper/Manganese/ Seleni/Zn 0.5 ml/ Insulin Human Regular 40 unit/ Potassium Chloride 20 meq/ Total Parenteral Nutrition/Amino Acids/Dextrose/ Fat Emulsion Intravenous 1,400 ml @ 58.333 mls/ hr TPN CONT 08/03/19 22:00 08/04/19 21:59 DC 08/03/19 21:20 58.333 MLS/HR Sodium Chloride 100 meq/Potassium Phosphate 5 mmol/ Magnesium Sulfate 12 meq/Calcium Gluconate 15 meq/ Multivitamins 10 ml/Chromium/ Copper/Manganese/ Seleni/Zn 0.5 ml/ Insulin Human Regular 35 unit/ Potassium Chloride 20 meq/ Total Parenteral Nutrition/Amino Acids/Dextrose/ Fat Emulsion Intravenous 1,400 ml @ 58.333 mls/ hr TPN CONT 08/05/19 22:00 08/06/19 21:59 DC 08/05/19 22:59 58.333 MLS/HR Succinylcholine Chloride (Anectine) 120 mg 1X ONCE 07/11/19 08:30 07/11/19 08:31 DC 07/11/19 08:34 120 MG Vecuronium [place] (Norcuron Bolus) 6 mg PRN Q6HRS PRN 08/25/19 19:15 08/25/19 19:35 DC Labs: Lab Laboratory Tests Test 09/28/19 18:37 09/28/19 23:30 09/29/19 06:02 09/29/19 06:15 Glucose (Fingerstick) 152 mg/dL (70-99) 145 mg/dL (70-99) 167 mg/dL (70-99) Sodium Level 147 mmol/L (136-145) Potassium Level 4.1 mmol/L (3.5-5.1) Chloride Level 115 mmol/L (98-107) Carbon Dioxide Level 22 mmol/L (21-32) Anion Gap 10 (6-14) Blood Urea Nitrogen 32 mg/dL (7-20) Creatinine 0.9 mg/dL (0.6-1.0) Estimated GFR (Cockcroft-Gault) 66.5 BUN/Creatinine Ratio 36 (6-20) Glucose Level 181 mg/dL (70-99) Calcium Level 9.9 mg/dL (8.5-10.1) Phosphorus Level 4.0 mg/dL (2.6-4.7) Magnesium Level 1.8 mg/dL (1.8-2.4) Total Bilirubin 0.4 mg/dL (0.2-1.0) Aspartate Amino Transf (AST/SGOT) 21 U/L (15-37) Alanine Aminotransferase (ALT/SGPT) 17 U/L (14-59) Alkaline Phosphatase 91 U/L (46-116) Total Protein 5.2 g/dL (6.4-8.2) Albumin 1.3 g/dL (3.4-5.0) Albumin/Globulin Ratio 0.3 (1.0-1.7) Triglycerides Level 203 mg/dL (0-150) Micro NEG ALEXANDRA 56 PSEUDOMONAS AERUGINOSA ANTIBIOTIC RESULT INTERPRETATION AMIKACIN <=16 S AZTREONAM >16 R CEFTAZIDIME >16 R CIPROFLOXACIN <=0.25 S CEFEPIME 16 I GENTAMICIN <=2 S LEVOFLOXACIN <=0.5 S CONTINUED ON NEXT PAGE ---- -------- RUN DATE: 09/28/19 [facility] [place] [facility] *LIVE* PAGE 2 RUN TIME: 1121 Specimen Inquiry SPEC: [id number] PATIENT: SCOTT CUELLAR [id number] (Continued) Procedure Result ANTIMICROBIAL SUSCEPTIBILITY Preliminary (continued) MEROPENEM <=1 S PIPERACILLIN/TAZOBACTAM 64 S TOBRAMYCIN <=2 S Unless otherwise specified, Testing Performed by: [address] [address] For Inquires, the Physician may contact the Microbiology department at [phone] Objective: Assessment: Patient with prolonged hospitalization Multiple medical problems Possible surgical procedures Fever Acute pancreatitis with persistent necrosis CT a/p 07/27 Increased ascites. 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 Sequela of pancreatitis with extensive pseudocysts again demonstrated, the right-sided collections are slightly larger since the prior exam, the left-sided collections are stable. 09/24 fluid cult PSAE (MDRO),yeast Cholelithiasis with thickening of the gallbladder wall. Leucocytosis JUANA,Hyperkalemia, Metabolic acidosis off dialysis Acute hypoxic resp failure ,bilateral pleural effusion and atelectasis hypocalcemia Prediabetes HTN s/p trach Abdominal fluid culture MDRO Pseudomonas, yeast Plan: Plan of Care Continue meropenem, has MDRP PSAE dose adjusted for renal function , September 24 cont micafungin September 24 off Dapto 09/27 Follow-up cultures fluid for yeast Monitor a.m. labs General surgery following Monitor drain output Maintain aspiration precaution Supportive care Prognosis poor Critically ill Maintain contact isolation for MDRO Pseudomonas D/w nursing YUNIOR JONES MD Sep 29, 2019 07:55
--- NOTE | 2019-09-29 08:50 | PDOC ---
PROGRESS NOTES Chief Complaint Chief Complaint A/P: Acute hypoxic Respiratory failure requiring mechanical ventilation (now extubated for several days but still with tracheostomy) Tracheostomy bilateral pleural effusions/pulm edema Sepsis Severe Acute gallstone pancreatitis (not a surgical candidate at this time) with necrosis Acute kidney failure now requiring dialysis Salpingitis Gallstones (Calculus of gallbladder with acute cholecystitis without obstruction) HTN Leukocytosis Hypoxia Uterine fibroid Intractable pain Intractable nausea Covid 19 negative. Acute on chronic anemia EEG: No seizure activityFever - better currently - intermittent could be from underlying pancreatitis blood cults 08/21 - neg so far ? Ileus with vomiting Abd distention - U/S and CT reviewed s/p 0.4 L of opaque, debris-containing ascites was removed 08/23 Acute pancreatitis with persistent necrosis - 08/14 status post KAYLIN drain placement + C paropsilosis. s/p additional drains Anemia - S/p PRBCs Cholelithiasis with thickening of the gallbladder wall. Leucocytosis improving JUANA, hyperkalemia, Metabolic acidosis off dialysis Acute hypoxic resp failure ,bilateral pleural effusion and atelectasis hypocalcemia Prediabetes HTN s/p trach ESRD on HD Hyperglycemia FEN - PPX - SCDs, off lovenox currently FULL CODE Dispo - ICU, critically ill CC time 49 minutes History of Present Illness History of Present Illness 09/25: IR placed drain on 09/24. 4u PRBC after Hb drop. Hb 8.8 today. Off Levophed this morning. T-max 100.3. Much more lethargic today. CXR with left sided dif fuse infiltrates. 09/26: Tachycardic overnight into the 140s. NGT clamped. On BIPAP currently. Drains with serosanguinous discharge. WBC 8, Tmax 99.6F. 09/27: Seen on trach shield in ICU. Hypertensive and tachycardic. Labs stable. blood stained drainage from drains. Afebrile. Seen on trach shield in ICU. She is a bit confused, drowsy, but when sitting up is conversational and confusion somewhat clears. She is asking for more pain medication. Stable drains, still very tachy.Na 147 09/23/2019 Patient seen and examined on telemetry floor today This morning I had a couple of discussions with case management The issue is the patient will not wear her trach cap Without that she cannot advance her diet and is currently supposed to be on honey thick liquids I was going to talk to the patient about wearing her trach But when I arrived to the room she was lying on the floor with several nurses and therapist around Apparently she did walk to the end of the meyer then back and then collapsed onto the floor She had a bowel movement when this all happened Appears to be critically ill again Very shaky tremulous anxious has a stare in her eyes We got her back in bed I am extremely concerned about her long-term prognosis again 09/22/2019 Patient seen and examined in the ICU She remains critically ill is is extremely weak Chart reviewed Discussed with RN We decided to try some Prozac as she does seem depressed On IV TPN Still has NG tube 09/21/2019 Patient seen and examined in the ICU She remains critically ill We have been trying to hold off on her Ativan for the past 24 hours She is a little more awake but shaky and agitated and anxious seems depressed Discussed with RN Chart reviewed 09/20/2019 Patient seen and examined in the ICU She is a little more alert today but still quite ill Appears clammy and pale and depressed/anxious Discussed with RN Chart reviewed 09/19/2019 Patient seen and examined in the ICU She appears extremely ill She is tachypneic at 35 respirations per minute and tachycardic at 132 bpm She is extremely encephalopathic and shaky She appears clammy Chart reviewed Discussed with RN Prognosis extremely guarded at best 09/18/2019 Patient still in ICU Resting with no apparent distress Chart reviewed 09/17/2019 Patient seen and examined in the ICU She is wiping her face with a cough Discussed with RN Chart reviewed We hope to get her out of the ICU later today if possible 09/16/2019 Patient seen and examined in the ICU once again She is back on NG suction On IV Zosyn Has IV TPN Sedated with Precedex but anxious still Appears somewhat clammy and pale Chart reviewed Discussed with RN She remains critically ill 09/15/2019 Patient seen and examined in the ICU She has an NG that is clamped we are hoping to start some clear liquids but she looks quite ill She is on IV TPN Meropenem changed to IV Zosyn (agree) She has Lind to bedside drainage She is semi-sedated with Precedex Chart reviewed Discussed with RN She remains critically ill Seen bedside. Hb 8. She was just a bit hypoxic, had a mucous plug suctioned. Able to vocalize well with speaking valve, tells me we are being very hard on her and she would like to be drugged back to sleep. She wants to wake up and feel better. On trach shield, T max 100.4. afebrile this a.m. 09/13/2019 Patient seen and examined in the ICU She is up in the chair very frail trying to talk a little shaky Discussed with RN Chart reviewed 09/12/2019 Patient seen and examined in the ICU Patient up in the chair Having a severe coughing episode with a lot of phlegm coming out of her tracheostomy Discussed with RN Discussed with physical therapy Chart reviewed 09/10,. feels well, has been out of room in wheelchair no complaint, still weak, some with not wanting to wear her valve on trach cont other, may be able to work with speech tomorrow, videoswallow OK to try, 09/09, anxiety is up today, she dislikes the valve still, shower and outside today . 09/08 she doesnt want to wear her passy-fantasma valve, discussed str and plan with her. speech following, needs swallow study, but needs to wear her valve longer, cont current able to walk some, walker 09/07 stronger, better, we discussed better oral care she would like to try swallow study, wants to try to eat, speech is following 09/07/2019 She remains in the ICU sitting up and working with OT, getting better if limit pain meds, may do better off the vent, Nurses trying to suction her, that is also improved, Chart reviewed 09/06/2019 Patient seen and examined in the ICU She had an episode yesterday of tachycardia and severe agitation we gave her some Ativan After that she seemed to have stroke symptoms but now that the Ativan has wore off her stroke symptoms have resolved She is on IV meropenem and daptomycin and micafungin Chart reviewed Discussed with RN Patient is still critically ill BRIEF OPERATIVE NOTE Pre-Op Diagnosis Pancreatitis with pseudocysts, suspected infection Post-Op Diagnosis same Procedure Performed CT abdominal Drains x 3 Surgeon Tesfaye Anesthesia Type: Conscious Sedation Findings 3 abdominal drains, 14F, with turbid pancreatic fluid and necrotic debris in each. Complications No immediate 08/26: Patient today somewhat restless and having bilious secretions from ET tube, imaging studies ordered, discussed with furniture rental consultant. Pretty poor prognosis, hopefully is not a fistula, poor surgical candidate. 08/27: Imaging with no acute events, she seems more stable today compared to yesterday. Encouraged as much activity as possible patient at high risk for severe depression. Vitals Vitals Vital Signs Date Time Temp Pulse Resp B/P (MAP) Pulse Ox O2 Delivery O2 Flow Rate FiO2 09/29/19 08:00 Trach Collar 10.0 09/29/19 08:00 09/29/19 08:00 98.6 138 48 97 98.6 Physical Exam Physical Exam GENERAL: Lethargic, opens eyes transiently HEENT: NGT in place. 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 very weak LUE-PICC (09/15) without signs of complications General: Alert, Cooperative, mild distress Heart: Regular rate, Normal S1, Normal S2, No murmurs, Gallops Lungs: Other (diminshed in bases, Rhonci in LLL) Abdomen: Soft, Other (drains with brownish drainage, c/w pancreatic necrosis) Extremities: No clubbing, No cyanosis, No edema, Normal pulses, No tenderness/swelling Skin: Other (warm, dry) Labs LABS Laboratory Tests Test 09/28/19 18:37 09/28/19 23:30 09/29/19 06:02 09/29/19 06:15 Glucose (Fingerstick) 152 mg/dL (70-99) 145 mg/dL (70-99) 167 mg/dL (70-99) Sodium Level 147 mmol/L (136-145) Potassium Level 4.1 mmol/L (3.5-5.1) Chloride Level 115 mmol/L (98-107) Carbon Dioxide Level 22 mmol/L (21-32) Anion Gap 10 (6-14) Blood Urea Nitrogen 32 mg/dL (7-20) Creatinine 0.9 mg/dL (0.6-1.0) Estimated GFR (Cockcroft-Gault) 66.5 BUN/Creatinine Ratio 36 (6-20) Glucose Level 181 mg/dL (70-99) Calcium Level 9.9 mg/dL (8.5-10.1) Phosphorus Level 4.0 mg/dL (2.6-4.7) Magnesium Level 1.8 mg/dL (1.8-2.4) Total Bilirubin 0.4 mg/dL (0.2-1.0) Aspartate Amino Transf (AST/SGOT) 21 U/L (15-37) Alanine Aminotransferase (ALT/SGPT) 17 U/L (14-59) Alkaline Phosphatase 91 U/L (46-116) Total Protein 5.2 g/dL (6.4-8.2) Albumin 1.3 g/dL (3.4-5.0) Albumin/Globulin Ratio 0.3 (1.0-1.7) Triglycerides Level 203 mg/dL (0-150) Assessment and Plan Assessmemt and Plan Problems Medical Problems: (1) Acute pancreatitis Status: Acute (2) Cholelithiasis Status: Acute Comment Review of Relevant I have reviewed the following items kolby (where applicable) has been applied. Labs Laboratory Tests Test 09/27/19 12:16 09/27/19 18:14 09/27/19 23:54 09/28/19 05:50 Glucose (Fingerstick) 140 mg/dL (70-99) 158 mg/dL (70-99) 116 mg/dL (70-99) White Blood Count 6.8 x10^3/uL (4.0-11.0) Red Blood Count 2.67 x10^6/uL (3.50-5.40) Hemoglobin 7.8 g/dL (12.0-15.5) Hematocrit 24.0 % (36.0-47.0) Mean Corpuscular Volume 90 fL (79-100) Mean Corpuscular Hemoglobin 29 pg (25-35) Mean Corpuscular Hemoglobin Concent 33 g/dL (31-37) Red Cell Distribution Width 18.0 % (11.5-14.5) Platelet Count 279 x10^3/uL (140-400) Neutrophils (%) (Auto) 71 % (31-73) Lymphocytes (%) (Auto) 20 % (24-48) Monocytes (%) (Auto) 7 % (0-9) Eosinophils (%) (Auto) 2 % (0-3) Basophils (%) (Auto) 0 % (0-3) Neutrophils # (Auto) 4.8 x10^3/uL (1.8-7.7) Lymphocytes # (Auto) 1.3 x10^3/uL (1.0-4.8) Monocytes # (Auto) 0.5 x10^3/uL (0.0-1.1) Eosinophils # (Auto) 0.1 x10^3/uL (0.0-0.7) Basophils # (Auto) 0.0 x10^3/uL (0.0-0.2) Sodium Level 147 mmol/L (136-145) Potassium Level 3.9 mmol/L (3.5-5.1) Chloride Level 117 mmol/L (98-107) Carbon Dioxide Level 23 mmol/L (21-32) Anion Gap 7 (6-14) Blood Urea Nitrogen 38 mg/dL (7-20) Creatinine 1.0 mg/dL (0.6-1.0) Estimated GFR (Cockcroft-Gault) 58.9 Glucose Level 164 mg/dL (70-99) Calcium Level 10.0 mg/dL (8.5-10.1) Test 09/28/19 05:54 09/28/19 18:37 09/28/19 23:30 09/29/19 06:02 Glucose (Fingerstick) 152 mg/dL (70-99) 152 mg/dL (70-99) 145 mg/dL (70-99) 167 mg/dL (70-99) Test 09/29/19 06:15 Sodium Level 147 mmol/L (136-145) Potassium Level 4.1 mmol/L (3.5-5.1) Chloride Level 115 mmol/L (98-107) Carbon Dioxide Level 22 mmol/L (21-32) Anion Gap 10 (6-14) Blood Urea Nitrogen 32 mg/dL (7-20) Creatinine 0.9 mg/dL (0.6-1.0) Estimated GFR (Cockcroft-Gault) 66.5 BUN/Creatinine Ratio 36 (6-20) Glucose Level 181 mg/dL (70-99) Calcium Level 9.9 mg/dL (8.5-10.1) Phosphorus Level 4.0 mg/dL (2.6-4.7) Magnesium Level 1.8 mg/dL (1.8-2.4) Total Bilirubin 0.4 mg/dL (0.2-1.0) Aspartate Amino Transf (AST/SGOT) 21 U/L (15-37) Alanine Aminotransferase (ALT/SGPT) 17 U/L (14-59) Alkaline Phosphatase 91 U/L (46-116) Total Protein 5.2 g/dL (6.4-8.2) Albumin 1.3 g/dL (3.4-5.0) Albumin/Globulin Ratio 0.3 (1.0-1.7) Triglycerides Level 203 mg/dL (0-150) Laboratory Tests Test 09/28/19 18:37 09/28/19 23:30 09/29/19 06:02 09/29/19 06:15 Glucose (Fingerstick) 152 mg/dL (70-99) 145 mg/dL (70-99) 167 mg/dL (70-99) Sodium Level 147 mmol/L (136-145) Potassium Level 4.1 mmol/L (3.5-5.1) Chloride Level 115 mmol/L (98-107) Carbon Dioxide Level 22 mmol/L (21-32) Anion Gap 10 (6-14) Blood Urea Nitrogen 32 mg/dL (7-20) Creatinine 0.9 mg/dL (0.6-1.0) Estimated GFR (Cockcroft-Gault) 66.5 BUN/Creatinine Ratio 36 (6-20) Glucose Level 181 mg/dL (70-99) Calcium Level 9.9 mg/dL (8.5-10.1) Phosphorus Level 4.0 mg/dL (2.6-4.7) Magnesium Level 1.8 mg/dL (1.8-2.4) Total Bilirubin 0.4 mg/dL (0.2-1.0) Aspartate Amino Transf (AST/SGOT) 21 U/L (15-37) Alanine Aminotransferase (ALT/SGPT) 17 U/L (14-59) Alkaline Phosphatase 91 U/L (46-116) Total Protein 5.2 g/dL (6.4-8.2) Albumin 1.3 g/dL (3.4-5.0) Albumin/Globulin Ratio 0.3 (1.0-1.7) Triglycerides Level 203 mg/dL (0-150) Microbiology 09/25/19 Gram Stain - Final, Resulted 09/25/19 Aerobic and Anaerobic Culture - Preliminary, Resulted 09/25/19 Antimicrobic Susceptibility - Preliminary, Resulted 09/25/19 Blood Culture - Preliminary, Resulted NO GROWTH AFTER 3 DAYS 09/25/19 Urine Culture - Final, Complete 09/17/19 Gram Stain - Final, Complete 09/17/19 Aerobic Culture - Final, Complete Medications Current Medications Sodium Chloride 1,000 ml @ 1,000 mls/hr Q1H IV Last administered on 07/04/19at 03:00; Start 07/04/19 at 03:00; Stop 07/04/19 at 03:59; Status DC Ondansetron HCl (Zofran) 4 mg 1X ONCE IVP Last administered on 07/04/19at 03:27; Start 07/04/19 at 03:00; Stop 07/04/19 at 03:01; Status DC Morphine Sulfate (Morphine Sulfate) 4 mg 1X ONCE IV ; Start 07/04/19 at 03:00; Stop 07/04/19 at 03:01; Status Cancel Ketorolac Tromethamine (Toradol 30mg Vial) 30 mg 1X ONCE IV Last administered on 07/04/19at 02:54; Start 07/04/19 at 03:00; Stop 07/04/19 at 03:01; Status DC Fentanyl Citrate (Fentanyl 2ml Vial) 25 mcg 1X ONCE IVP Last administered on 07/04/19at 03:23; Start 07/04/19 at 03:30; Stop 07/04/19 at 03:31; Status DC Fentanyl Citrate (Fentanyl 2ml Vial) 100 mcg STK-MED ONCE .ROUTE ; Start 07/03 at 03:18; Stop 07/04/19 at 03:18; Status DC Iohexol (Omnipaque 350 Mg/ml) 90 ml 1X ONCE IV Last administered on 07/04/19at 03:25; Start 07/04/19 at 03:30; Stop 07/04/19 at 03:31; Status DC Info (CONTRAST GIVEN -- Rx MONITORING) 1 each PRN DAILY PRN MC SEE COMMENTS; Start 07/04/19 at 03:30; Stop 07/06/19 at 03:29; Status DC Hydromorphone HCl (Dilaudid) 0.5 mg 1X ONCE IV Last administered on 07/04/19at 03:55; Start 07/04/19 at 04:30; Stop 07/04/19 at 04:32; Status DC Ondansetron HCl (Zofran) 4 mg PRN Q8HRS PRN IV NAUSEA/VOMITING 1ST CHOICE; Start 07/04/19 at 05:00; Stop 07/04/19 at 09:27; Status DC Morphine Sulfate (Morphine Sulfate) 2 mg PRN Q2HR PRN IV SEVERE PAIN 7-10 Last administered on 07/05/19at 12:26; Start 07/04/19 at 05:00; Stop 07/05/19 at 14:15; Status DC Sodium Chloride 1,000 ml @ 125 mls/hr Q8H IV Last administered on 07/04/19at 20:56; Start 07/04/19 at 05:00; Stop 07/05/19 at 04:59; Status DC Hydromorphone HCl (Dilaudid) 0.5 mg PRN Q3HRS PRN IV SEVERE PAIN 7-10 Last administered on 07/05/19at 10:06; Start 07/04/19 at 05:00; Stop 07/05/19 at 12:01; Status DC Piperacillin Sod/ Tazobactam Sod 4.5 gm/Sodium Chloride 100 ml @ 200 mls/hr 1X ONCE IV Last administered on 07/04/19at 05:44; Start 07/04/19 at 06:00; Stop 07/04/19 at 06:29; Status DC Ondansetron HCl (Zofran) 4 mg PRN Q4HRS PRN IV NAUSEA/VOMITING 1ST CHOICE Last administered on 09/28/19at 15:34; Start 07/04/19 at 09:30 Insulin Human Lispro (HumaLOG) 0-9 UNITS Q6HRS SQ Last administered on 09/29/19at 06:10; Start 07/04/19 at 09:30 Dextrose (Dextrose 50%-Water Syringe) 12.5 gm PRN Q15MIN PRN IV SEE COMMENTS; Start 07/04/19 at 09:30 Pantoprazole Sodium (PROTONIX VIAL for IV PUSH) 40 mg DAILYAC IVP Last administered on 09/28/19at 08:17; Start 07/04/19 at 11:30 Prochlorperazine Edisylate (Compazine) 10 mg PRN Q6HRS PRN IV NAUSEA/VOMITING, 2nd CHOICE Last administered on 09/28/19at 14:33; Start 07/04/19 at 17:45 Atenolol (Tenormin) 100 mg DAILY PO ; Start 07/05/19 at 09:00; Stop 07/04/19 at 20:08; Status DC Metoprolol Tartrate (Lopressor Vial) 2.5 mg Q6HRS IVP Last administered on 07/05/19at 05:51; Start 07/04/19 at 20:15; Stop 07/05/19 at 10:02; Status DC Metoprolol Tartrate (Lopressor Vial) 5 mg Q6HRS IVP Last administered on 07/14/19at 00:12; Start 07/05/19 at 10:15; Stop 07/16/19 at 08:48; Status DC Hydromorphone HCl (Dilaudid) 1 mg PRN Q3HRS PRN IV SEVERE PAIN 7-10 Last administered on 07/11/19at 05:13; Start 07/05/19 at 12:00; Stop 07/19/19 at 00:25; Status DC Lidocaine HCl (Buffered Lidocaine 1%) 3 ml STK-MED ONCE .ROUTE ; Start 07/05/19 at 12:55; Stop 07/05/19 at 12:56; Status DC Albumin Human 500 ml @ 125 mls/hr 1X ONCE IV Last administered on 07/05/19at 14:33; Start 07/05/19 at 14:30; Stop 07/05/19 at 18:32; Status DC Norepinephrine Bitartrate 8 mg/ Dextrose 258 ml @ 17.299 mls/ hr CONT PRN IV PER PROTOCOL Last administered on 08/02/19at 12:48; Start 07/05/19 at 15:30; Stop 08/05/19 at 09:19; Status DC Sodium Chloride 1,000 ml @ 125 mls/hr Q8H IV Last administered on 07/05/19at 21:04; Start 07/05/19 at 16:00; Stop 07/06/19 at 02:42; Status DC Albumin Human 500 ml @ 125 mls/hr PRN BID PRN IV After every 2L NSS & BP < 90mm Last administered on 09/24/19at 11:40; Start 07/05/19 at 16:00 Iohexol (Omnipaque 300 Mg/ml) 60 ml 1X ONCE IV Last administered on 07/05/19at 17:20; Start 07/05/19 at 17:00; Stop 07/05/19 at 17:01; Status DC Info (CONTRAST GIVEN -- Rx MONITORING) 1 each PRN DAILY PRN MC SEE COMMENTS; Start 07/05/19 at 17:00; Stop 07/07/19 at 16:59; Status DC Meropenem 1 gm/ Sodium Chloride 100 ml @ 200 mls/hr Q8HRS IV Last administered on 07/06/19at 05:45; Start 07/05/19 at 20:00; Stop 07/06/19 at 08:48; Status DC Furosemide (Lasix) 40 mg 1X ONCE IVP Last administered on 07/05/19at 22:12; Start 07/05/19 at 22:30; Stop 07/05/19 at 22:31; Status DC Calcium Chloride 1000 mg/Sodium Chloride 110 ml @ 220 mls/hr 1X ONCE IV Last administered on 07/05/19at 22:11; Start 07/05/19 at 22:30; Stop 07/05/19 at 22:59; Status DC Albuterol Sulfate (Ventolin Neb Soln) 2.5 mg 1X ONCE NEB Last administered on 07/06/19at 00:56; Start 07/05/19 at 22:30; Stop 07/05/19 at 22:31; Status DC Insulin Human Regular (HumuLIN R VIAL) 5 unit 1X ONCE IV Last administered on 07/05/19at 22:14; Start 07/05/19 at 22:30; Stop 07/05/19 at 22:31; Status DC Magnesium Sulfate 50 ml @ 25 mls/hr 1X ONCE IV Last administered on 07/06/19at 02:57; Start 07/06/19 at 03:00; Stop 07/06/19 at 04:59; Status DC Calcium Gluconate 1000 mg/Sodium Chloride 110 ml @ 220 mls/hr 1X ONCE IV Last administered on 07/06/19at 02:46; Start 07/06/19 at 03:00; Stop 07/06/19 at 03:29; Status DC Sodium Chloride 1,000 ml @ 200 mls/hr Q5H IV Last administered on 07/06/19at 02:46; Start 07/06/19 at 03:00; Stop 07/06/19 at 10:21; Status DC Calcium Gluconate 1000 mg/Sodium Chloride 110 ml @ 220 mls/hr 1X ONCE IV Last administered on 07/06/19at 03:21; Start 07/06/19 at 03:30; Stop 07/06/19 at 03:59; Status DC Sodium Bicarbonate 50 meq/Sodium Chloride 1,050 ml @ 75 mls/hr Q14H IV Last administered on 07/10/19at 21:10; Start 07/06/19 at 07:30; Stop 07/11/19 at 10:28; Status DC Calcium Gluconate 2000 mg/Sodium Chloride 120 ml @ 220 mls/hr 1X ONCE IV Last administered on 07/06/19at 09:05; Start 07/06/19 at 07:30; Stop 07/06/19 at 08:02; Status DC Lidocaine HCl (Xylocaine-Mpf 1% 2ml Vial) 2 ml STK-MED ONCE .ROUTE ; Start 07/06/19 at 08:47; Stop 07/06/19 at 08:47; Status DC Meropenem 500 mg/ Sodium Chloride 50 ml @ 100 mls/hr Q12HR IV Last admini stered on 07/11/19at 21:01; Start 07/06/19 at 18:00; Stop 07/12/19 at 07:58; Status DC Lidocaine HCl (Buffered Lidocaine 1%) 3 ml STK-MED ONCE .ROUTE ; Start 07/06/19 at 09:46; Stop 07/06/19 at 09:46; Status DC Lidocaine HCl (Buffered Lidocaine 1%) 6 ml 1X ONCE INJ Last administered on 07/06/19at 10:26; Start 07/06/19 at 10:15; Stop 07/06/19 at 10:16; Status DC Info (Tpn Per Pharmacy) 1 each PRN DAILY PRN MC SEE COMMENTS Last administered on 09/28/19at 10:39; Start 07/06/19 at 12:00 Sodium Chloride 1,000 ml @ 1,000 mls/hr Q1H PRN IV hypotension; Start 07/06/19 at 12:07; Stop 07/06/19 at 18:06; Status DC Diphenhydramine HCl (Benadryl) 25 mg 1X PRN PRN IV ITCHING; Start 07/06/19 at 12:15; Stop 07/07/19 at 12:14; Status DC Diphenhydramine HCl (Benadryl) 25 mg 1X PRN PRN IV ITCHING; Start 07/06/19 at 12:15; Stop 07/07/19 at 12:14; Status DC Sodium Chloride 1,000 ml @ 400 mls/hr Q2H30M PRN IV PATENCY; Start 07/06/19 at 12:07; Stop 07/07/19 at 00:06; Status DC Info (PHARMACY MONITORING -- do not chart) 1 each PRN DAILY PRN MC SEE COMMENTS; Start 07/06/19 at 12:15; Stop 07/08/19 at 08:13; Status DC Sodium Chloride 90 meq/Calcium Gluconate 10 meq/ Multivitamins 10 ml/Chromium/ Copper/Manganese/ Seleni/Zn 1 ml/ Total Parenteral Nutrition/Amino Acids/Dextro se/ Fat Emulsion Intravenous 55.005 ml @ 2.292 mls/hr TPN CONT IV ; Start 07/06/19 at 22:00; Stop 07/06/19 at 12:33; Status DC Info (Tpn Per Pharmacy) 1 each PRN DAILY PRN MC SEE COMMENTS; Start 07/06/19 at 12:30; Status UNV Sodium Chloride 90 meq/Calcium Gluconate 10 meq/ Multivitamins 10 ml/Chromium/ Copper/Manganese/ Seleni/Zn 0.5 ml/ Total Parenteral Nutrition/Amino Acids/ Dextrose/ Fat Emulsion Intravenous 1,512 ml @ 63 mls/hr TPN CONT IV Last administered on 07/06/19at 22:06; Start 07/06/19 at 22:00; Stop 07/07/19 at 21:59; Status DC Calcium Carbonate/ Glycine (Tums) 500 mg PRN AFTMEALHC PRN PO INDIGESTION; Start 07/06/19 at 17:45; Stop 08/31/19 at 10:25; Status DC Calcium Gluconate (Calcium Gluconate) 2,000 mg 1X ONCE IVP Last administered on 07/07/19at 02:19; Start 07/07/19 at 02:15; Stop 07/07/19 at 02:16; Status DC Calcium Chloride 3000 mg/Sodium Chloride 1,030 ml @ 50 mls/hr [id number] IV Last administered on 07/09/19at 02:17; Start 07/07/19 at 08:00; Stop 07/09/19 at 15:23; Status DC Lorazepam (Ativan Inj) 1 mg PRN Q4HRS PRN IVP ANXIETY / AGITATION, 2nd choic Last administered on 08/05/19at 03:51; Start 07/07/19 at 09:00; Stop 08/05/19 at 09:19; Status DC Sodium Chloride 1,000 ml @ 1,000 mls/hr Q1H PRN IV hypotension; Start 07/07/19 at 08:56; Stop 07/07/19 at 14:55; Status DC Albumin Human 200 ml @ 200 mls/hr 1X PRN PRN IV Hypotension; Start 07/07/19 at 09:00; Stop 07/07/19 at 14:59; Status DC Diphenhydramine HCl (Benadryl) 25 mg 1X PRN PRN IV ITCHING; Start 07/07/19 at 09:00; Stop 07/08/19 at 08:59; Status DC Diphenhydramine HCl (Benadryl) 25 mg 1X PRN PRN IV ITCHING; Start 07/07/19 at 09:00; Stop 07/08/19 at 08:59; Status DC Sodium Chloride 1,000 ml @ 400 mls/hr Q2H30M PRN IV PATENCY; Start 07/07/19 at 08:56; Stop 07/07/19 at 20:55; Status DC Info (PHARMACY MONITORING -- do not chart) 1 each PRN DAILY PRN MC SEE COMMENTS; Start 07/07/19 at 09:00; Status UNV Info (PHARMACY MONITORING -- do not chart) 1 each PRN DAILY PRN MC SEE COMMENTS; Start 07/07/19 at 09:00; Stop 07/08/19 at 08:13; Status DC Digoxin (Lanoxin) 500 mcg 1X ONCE IV Last administered on 07/07/19at 10:04; Start 07/07/19 at 10:00; Stop 07/07/19 at 10:01; Status DC Digoxin (Lanoxin) 125 mcg 1X ONCE IV Last administered on 07/07/19at 17:10; Start 07/07/19 at 18:00; Stop 07/07/19 at 18:01; Status DC Magnesium Sulfate 100 ml @ 25 mls/hr 1X ONCE IV Last administered on 07/07/19at 12:48; Start 07/07/19 at 13:00; Stop 07/07/19 at 16:59; Status DC Sodium Chloride 90 meq/Magnesium Sulfate 10 meq/ Calcium Gluconate 20 meq/ Multivitamins 10 ml/Chromium/ Copper/Manganese/ Seleni/Zn 0.5 ml/ Total Parenteral Nutrition/Amino Acids/Dextrose/ Fat Emulsion Intravenous 1,512 ml @ 63 mls/hr TPN CONT IV Last administered on 07/07/19at 22:25; Start 07/07/19 at 22:00; Stop 07/08/19 at 21:59; Status DC Sodium Chloride 1,000 ml @ 1,000 mls/hr Q1H PRN IV hypotension; Start 07/08/19 at 08:05; Stop 07/08/19 at 14:04; Status DC Albumin Human 200 ml @ 200 mls/hr 1X ONCE IV Last administered on 07/08/19at 08:57; Start 07/08/19 at 08:15; Stop 07/08/19 at 09:14; Status DC Diphenhydramine HCl (Benadryl) 25 mg 1X PRN PRN IV ITCHING; Start 07/08/19 at 08:15; Stop 07/09/19 at 08:14; Status DC Diphenhydramine HCl (Benadryl) 25 mg 1X PRN PRN IV ITCHING; Start 07/08/19 at 08:15; Stop 07/09/19 at 08:14; Status DC Sodium Chloride 1,000 ml @ 400 mls/hr Q2H30M PRN IV PATENCY; Start 07/08/19 at 08:05; Stop 07/08/19 at 20:04; Status DC Info (PHARMACY MONITORING -- do not chart) 1 each PRN DAILY PRN MC SEE COMMENTS; Start 07/08/19 at 08:15; Stop 07/12/19 at 07:57; Status DC Sodium Chloride 90 meq/Potassium Chloride 15 meq/ Potassium Phosphate 10 mmol/ Magnesium Sulfate 10 meq/Calcium Gluconate 20 meq/ Multivitamins 10 ml/Chromium/ Copper/Manganese/ Seleni/Zn 0.5 ml/ Total Parenteral Nutrition/Amino Acids/Dextrose/ Fat Emulsion Intravenous 1,512 ml @ 63 mls/hr TPN CONT IV Last administered on 07/08/19at 21:01; Start 07/08/19 at 22:00; Stop 07/09/19 at 21:59; Status DC Potassium Chloride/Water 100 ml @ 100 mls/hr 1X ONCE IV Last administered on 07/08/19at 14:09; Start 07/08/19 at 14:00; Stop 07/08/19 at 14:59; Status DC Benzocaine (Hurricaine One) 1 spray 1X ONCE MM Last administered on 07/08/19at 16:38; Start 07/08/19 at 14:30; Stop 07/08/19 at 14:31; Status DC Lidocaine HCl (Glydo (Lidocaine) Jelly) 1 ramu 1X ONCE MM Last administered on 07/08/19at 16:38; Start 07/08/19 at 14:30; Stop 07/08/19 at 14:31; Status DC Linezolid/Dextrose 300 ml @ 300 mls/hr Q12HR IV Last administered on 07/14/19at 21:04; Start 07/08/19 at 20:00; Stop 07/15/19 at 07:50; Status DC Acetaminophen (Tylenol) 650 mg PRN Q6HRS PRN PO MILD PAIN / TEMP; Start 07/09/19 at 03:30; Stop 07/09/19 at 03:36; Status DC Acetaminophen (Tylenol) 650 mg PRN Q6HRS PRN PEG MILD PAIN / TEMP Last administered on 08/04/19at 19:56; Start 07/09/19 at 03:36; Stop 08/31/19 at 10:25; Status DC Sodium Chloride 1,000 ml @ 1,000 mls/hr Q1H PRN IV hypotension; Start 07/09/19 at 07:50; Stop 07/09/19 at 13:49; Status DC Albumin Human 200 ml @ 200 mls/hr 1X PRN PRN IV Hypotension; Start 07/09/19 at 08:00; Stop 07/09/19 at 13:59; Status DC Sodium Chloride (Normal Saline Flush) 10 ml 1X PRN PRN IV AP catheter pack; Start 07/09/19 at 08:00; Stop 07/10/19 at 07:59; Status DC Sodium Chloride (Normal Saline Flush) 10 ml 1X PRN PRN IV TOP FRAME FITTER catheter pack; Start 07/09/19 at 08:00; Stop 07/10/19 at 07:59; Status DC Sodium Chloride 1,000 ml @ 400 mls/hr Q2H30M PRN IV PATENCY; Start 07/09/19 at 07:50; Stop 07/09/19 at 19:49; Status DC Info (PHARMACY MONITORING -- do not chart) 1 each PRN DAILY PRN MC SEE COMMENTS; Start 07/09/19 at 08:00; Status UNV Info (PHARMACY MONITORING -- do not chart) 1 each PRN DAILY PRN MC SEE C OMMENTS; Start 07/09/19 at 08:00; Stop 07/11/19 at 08:25; Status DC Sodium Chloride 90 meq/Potassium Chloride 15 meq/ Potassium Phosphate 10 mmol/ Magnesium Sulfate 10 meq/Calcium Gluconate 20 meq/ Multivitamins 10 ml/Chromium/ Copper/Manganese/ Seleni/Zn 0.5 ml/ Total Parenteral Nutrition/Amino Acids/Dextrose/ Fat Emulsion Intravenous 1,512 ml @ 63 mls/hr TPN CONT IV Last administered on 07/09/19at 20:57; Start 07/09/19 at 22:00; Stop 07/10/19 at 21:59; Status DC Sodium Chloride 90 meq/Potassium Chloride 15 meq/ Potassium Phosphate 15 mmol/ Magnesium Sulfate 10 meq/Calcium Gluconate 20 meq/ Multivitamins 10 ml/Chromium/ Copper/Manganese/ Seleni/Zn 0.5 ml/ Total Parenteral Nutrition/Amino Acids/Dextrose/ Fat Emulsion Intravenous 1,512 ml @ 63 mls/hr TPN CONT IV ; Start 07/10/19 at 22:00; Stop 07/10/19 at 14:16; Status DC Sodium Chloride 90 meq/Potassium Chloride 15 meq/ Potassium Phosphate 15 mmol/ Magnesium Sulfate 10 meq/Calcium Gluconate 20 meq/ Multivitamins 10 ml/Chromium/ Copper/Manganese/ Seleni/Zn 0.5 ml/ Total Parenteral Nutrition/Amino Acids/Dextrose/ Fat Emulsion Intravenous 1,200 ml @ 50 mls/hr TPN CONT IV ; Start 07/10/19 at 22:00; Stop 07/10/19 at 14:17; Status DC Sodium Chloride 90 meq/Potassium Chloride 15 meq/ Potassium Phosphate 10 mmol/ Magnesium Sulfate 10 meq/Calcium Gluconate 20 meq/ Multivitamins 10 ml/Chromium/ Copper/Manganese/ Seleni/Zn 0.5 ml/ Total Parenteral Nutrition/Amino Acids/Dextrose/ Fat Emulsion Intravenous 1,200 ml @ 50 mls/hr TPN CONT IV Last administered on 07/10/19at 23:29; Start 07/10/19 at 22:00; Stop 07/11/19 at 21:59; Status DC Sodium Chloride 1,000 ml @ 1,000 mls/hr Q1H PRN IV hypotension; Start 07/11/19 at 07:28; Stop 07/11/19 at 13:27; Status DC Albumin Human 200 ml @ 200 mls/hr 1X ONCE IV Last administered on 07/11/19at 08:51; Start 07/11/19 at 07:30; Stop 07/11/19 at 08:29; Status DC Diphenhydramine HCl (Benadryl) 25 mg 1X PRN PRN IV ITCHING; Start 07/11/19 at 07:30; Stop 07/12/19 at 07:29; Status DC Diphenhydramine HCl (Benadryl) 25 mg 1X PRN PRN IV ITCHING; Start 07/11/19 at 07:30; Stop 07/12/19 at 07:29; Status DC Sodium Chloride 1,000 ml @ 400 mls/hr Q2H30M PRN IV PATENCY; Start 07/11/19 at 07:28; Stop 07/11/19 at 19:27; Status DC Info (PHARMACY MONITORING -- do not chart) 1 each PRN DAILY PRN MC SEE COMMENTS; Start 07/11/19 at 07:30; Stop 07/22/19 at 13:01; Status DC Metronidazole 100 ml @ 100 mls/hr Q6HRS IV Last administered on 07/27/19at 06:26; Start 07/11/19 at 08:30; Stop 07/27/19 at 09:58; Status DC Micafungin Sodium 100 mg/Dextrose 100 ml @ 100 mls/hr Q24H IV Last administered on 08/18/19at 08:18; Start 07/11/19 at 09:00; Stop 08/18/19 at 20:58; Status DC Propofol 0 ml @ As Directed STK-MED ONCE IV ; Start 07/11/19 at 07:53; Stop 07/11/19 at 07:53; Status DC Etomidate (Amidate) 20 mg STK-MED ONCE IV ; Start 07/11/19 at 07:53; Stop 07/11/19 at 07:54; Status DC Midazolam HCl (Versed) 5 mg STK-MED ONCE .ROUTE ; Start 07/11/19 at 07:57; Stop 07/11/19 at 07:57; Status DC Fentanyl Citrate 30 ml @ 0 mls/hr CONT PRN IV SEE PROTOCOL Last administered on 08/05/19at 06:12; Start 07/11/19 at 08:15; Stop 08/05/19 at 09:19; Status DC Artificial Tears (Artificial Tears) 1 drop PRN Q1HR PRN OU DRY EYE, 1st choice; Start 07/11/19 at 08:15; Stop 08/17/19 at 05:31; Status DC Midazolam HCl 50 mg/Sodium Chloride 50 ml @ 0 mls/hr CONT PRN IV SEE PROTOCOL Last administered on 07/14/19at 22:39; Start 07/11/19 at 08:15; Stop 07/16/19 at 15:59; Status DC Etomidate (Amidate) 8 mg 1X ONCE IV Last administered on 07/11/19at 08:33; Start 07/11/19 at 08:30; Stop 07/11/19 at 08:31; Status DC Succinylcholine Chloride (Anectine) 120 mg 1X ONCE IV Last administered on 07/11/19at 08:34; Start 07/11/19 at 08:30; Stop 07/11/19 at 08:31; Status DC Midazolam HCl (Versed) 5 mg 1X ONCE IV ; Start 07/11/19 at 08:30; Stop 07/11/19 at 08:31; Status DC Potassium Chloride 15 meq/ Bicarbonate Dialysis Soln w/ out KCl 5,007.5 ml @ 1,000 mls/ hr Q5H1M IV Last administered on 07/12/19at 11:11; Start 07/11/19 at 12:00; Stop 07/12/19 at 11:15; Status DC Potassium Chloride 15 meq/ Bicarbonate Dialysis Soln w/ out KCl 5,007.5 ml @ 1,000 mls/ hr Q5H1M IV Last administered on 07/12/19at 11:12; Start 07/11/19 at 12:00; Stop 07/12/19 at 11:17; Status DC Potassium Chloride 15 meq/ Bicarbonate Dialysis Soln w/ out KCl 5,007.5 ml @ 1,000 mls/ hr Q5H1M IV Last administered on 07/12/19at 11:11; Start 07/11/19 at 12:00; Stop 07/12/19 at 11:19; Status DC Sodium Chloride 90 meq/Potassium Chloride 15 meq/ Potassium Phosphate 10 mmol/ Magnesium Sulfate 10 meq/Calcium Gluconate 20 meq/ Multivitamins 10 ml/Chromium/ Copper/Manganese/ Seleni/Zn 0.5 ml/ Total Parenteral Nutrition/Amino Acids/Dextrose/ Fat Emulsion Intravenous 1,400 ml @ 58.333 mls/ hr TPN CONT IV Last administered on 07/11/19at 21:42; Start 07/11/19 at 22:00; Stop 07/12/19 at 21:59; Status DC Heparin Sodium (Porcine) (Heparin Sodium) 5,000 unit Q8HRS SQ Last administered on 07/16/19at 05:55; Start 07/11/19 at 15:00; Stop 07/16/19 at 13:28; Status DC Meropenem 500 mg/ Sodium Chloride 50 ml @ 100 mls/hr Q6HRS IV Last adm inistered on 07/13/19at 06:00; Start 07/12/19 at 09:00; Stop 07/13/19 at 07:29; Status DC Potassium Phosphate 20 mmol/ Sodium Chloride 106.6667 ml @ 51.667 m... 1X ONCE IV Last administered on 07/12/19at 11:22; Start 07/12/19 at 10:15; Stop 07/12/19 at 12:18; Status DC Acetaminophen (Tylenol Supp) 650 mg PRN Q6HRS PRN [place] MILD PAIN / TEMP > 100.3'F Last administered on 09/28/19at 22:16; Start 07/12/19 at 10:30 Potassium Chloride/Water 100 ml @ 100 mls/hr Q1H IV Last administered on 07/12/19at 12:12; Start 07/12/19 at 11:00; Stop 07/12/19 at 12:59; Status DC Potassium Chloride 20 meq/ Bicarbonate Dialysis Soln w/ out KCl 5,010 ml @ 1,000 mls/hr Q5H1M IV Last administered on 07/13/19at 08:48; Start 07/12/19 at 12:00; Stop 07/13/19 at 13:03; Status DC Potassium Chloride 20 meq/ Bicarbonate Dialysis Soln w/ out KCl 5,010 ml @ 1,000 mls/hr Q5H1M IV Last administered on 07/17/19at 14:52; Start 07/12/19 at 11:30; Stop 07/17/19 at 19:59; Status DC Potassium Chloride 20 meq/ Bicarbonate Dialysis Soln w/ out KCl 5,010 ml @ 1,000 mls/hr Q5H1M IV Last administered on 07/17/19at 14:53; Start 07/12/19 at 11:30; Stop 07/17/19 at 19:59; Status DC Sodium Chloride 90 meq/Potassium Chloride 15 meq/ Potassium Phosphate 15 mmol/ Magnesium Sulfate 10 meq/Calcium Gluconate 15 meq/ Multivitamins 10 ml/Chromium/ Copper/Manganese/ Seleni/Zn 0.5 ml/ Total Parenteral Nutrition/Amino Acids/Dextrose/ Fat Emulsion Intravenous 1,400 ml @ 58.333 mls/ hr TPN CONT IV Last administered on 07/12/19at 22:17; Start 07/12/19 at 22:00; Stop 07/13/19 at 21:59; Status DC Cefepime HCl (Maxipime) 2 gm Q12HR IVP Last administered on 07/26/19at 20:56; Start 07/13/19 at 09:00; Stop 07/27/19 at 09:58; Status DC Daptomycin 500 mg/ Sodium Chloride 50 ml @ 100 mls/hr Q48H IV Last administered on 07/29/19at 09:57; Start 07/13/19 at 08:30; Stop 07/29/19 at 10:07; Status DC Lidocaine HCl (Buffered Lidocaine 1%) 3 ml 1X ONCE INJ Last administered on 07/13/19at 10:27; Start 07/13/19 at 10:30; Stop 07/13/19 at 10:31; Status DC Potassium Phosphate 20 mmol/ Sodium Chloride 106.6667 ml @ 51.667 m... 1X ONCE IV Last administered on 07/13/19at 12:51; Start 07/13/19 at 13:00; Stop 07/13/19 at 15:03; Status DC Sodium Chloride 90 meq/Potassium Chloride 15 meq/ Potassium Phosphate 18 mmol/ Magnesium Sulfate 8 meq/Calcium Gluconate 15 meq/ Multivitamins 10 ml/Chromium/ Copper/Manganese/ Seleni/Zn 0.5 ml/ Total Parenteral Nutrition/Amino Acids/Dextrose/ Fat Emulsion Intravenous 1,400 ml @ 58.333 mls/ hr TPN CONT IV Last administered on 07/13/19at 22:16; Start 07/13/19 at 22:00; Stop 07/14/19 at 21:59; Status DC Potassium Chloride 20 meq/ Bicarbonate Dialysis Soln w/ out KCl 5,010 ml @ 1,000 mls/hr Q5H1M IV Last administered on 07/17/19at 14:54; Start 07/13/19 at 16:00; Stop 07/17/19 at 19:59; Status DC Multi-Ingred Cream/Lotion/Oil/ Oint (Artificial Tears Eye Ointment) 1 ramu PRN Q1HR PRN OU DRY EYE, 2nd choice Last administered on 08/01/19at 08:19; Start 07/13/19 at 17:30; Stop 09/21/19 at 14:39; Status DC Sodium Chloride 90 meq/Potassium Chloride 15 meq/ Potassium Phosphate 18 mmol/ Magnesium Sulfate 8 meq/Calcium Gluconate 15 meq/ Multivitamins 10 ml/Chromium/ Copper/Manganese/ Seleni/Zn 0.5 ml/ Total Parenteral Nutrition/Amino Acids/Dextrose/ Fat Emulsion Intravenous 1,400 ml @ 58.333 mls/ hr TPN CONT IV Last administered on 07/14/19at 22:00; Start 07/14/19 at 22:00; Stop 07/15/19 at 21:59; Status DC Albumin Human 500 ml @ 125 mls/hr 1X ONCE IV ; Start 07/14/19 at 14:15; Stop 07/14/19 at 18:14; Status DC Sodium Chloride 90 meq/Potassium Chloride 15 meq/ Potassium Phosphate 18 mmol/ Magnesium Sulfate 8 meq/Calcium Gluconate 15 meq/ Multivitamins 10 ml/Chromium/ Copper/Manganese/ Seleni/Zn 0.5 ml/ Insulin Human Regular 10 unit/ Total Parenteral Nutrition/Amino Acids/Dextrose/ Fat Emulsion Intravenous 1,400 ml @ 58.333 mls/ hr TPN CONT IV Last administered on 07/15/19at 21:43; Start 07/15/19 at 22:00; Stop 07/16/19 at 21:59; Status DC Lidocaine HCl (Buffered Lidocaine 1%) 3 ml STK-MED ONCE .ROUTE ; Start 07/13/19 at 10:00; Stop 07/15/19 at 13:57; Status DC Midazolam HCl 100 mg/Sodium Chloride 100 ml @ 7 mls/hr CONT PRN IV SEE PROTOCOL Last administered on 07/27/19at 15:35; Start 07/16/19 at 16:00; Stop 09/21/19 at 14:38; Status DC Sodium Chloride 90 meq/Potassium Chloride 15 meq/ Potassium Phosphate 18 mmol/ Magnesium Sulfate 8 meq/Calcium Gluconate 15 meq/ Multivitamins 10 ml/Chromium/ Copper/Manganese/ Seleni/Zn 0.5 ml/ Insulin Human Regular 15 unit/ Total Parenteral Nutrition/Amino Acids/Dextrose/ Fat Emulsion Intravenous 1,400 ml @ 58.333 mls/ hr TPN CONT IV Last administered on 07/16/19at 20:34; Start 07/16/19 at 22:00; Stop 07/17/19 at 21:59; Status DC Info (Icu Electrolyte Protocol) 1 ea CONT PRN PRN MC PER PROTOCOL; Start 07/17/19 at 13:15 Sodium Chloride 90 meq/Potassium Chloride 15 meq/ Potassium Phosphate 18 mmol/ Magnesium Sulfate 8 meq/Calcium Gluconate 15 meq/ Multivitamins 10 ml/Chromium/ Copper/Manganese/ Seleni/Zn 0.5 ml/ Insulin Human Regular 15 unit/ Total Parenteral Nutrition/Amino Acids/Dextrose/ Fat Emulsion Intravenous 1,400 ml @ 58.333 mls/ hr TPN CONT IV Last administered on 07/17/19at 22:05; Start 07/17/19 at 22:00; Stop 07/18/19 at 21:59; Status DC Potassium Chloride 15 meq/ Bicarbonate Dialysis Soln w/ out KCl 5,007.5 ml @ 1,000 mls/ hr Q5H1M IV Last administered on 07/20/19at 18:14; Start 07/17/19 at 20:00; Stop 07/21/19 at 13:08; Status DC Potassium Chloride 15 meq/ Bicarbonate Dialysis Soln w/ out KCl 5,007.5 ml @ 1,000 mls/ hr Q5H1M IV Last administered on 07/20/19at 18:14; Start 07/17/19 at 20:00; Stop 07/21/19 at 13:08; Status DC Potassium Chloride 15 meq/ Bicarbonate Dialysis Soln w/ out KCl 5,007.5 ml @ 1,000 mls/ hr Q5H1M IV Last administered on 07/20/19at 18:14; Start 07/17/19 at 20:00; Stop 07/21/19 at 13:08; Status DC Iohexol (Omnipaque 240 Mg/ml) 30 ml 1X ONCE PO Last administered on 07/18/19at 11:30; Start 07/18/19 at 11:30; Stop 07/18/19 at 11:33; Status DC Info (CONTRAST GIVEN -- Rx MONITORING) 1 each PRN DAILY PRN MC SEE COMMENTS; Start 07/18/19 at 11:45; Stop 07/20/19 at 11:44; Status DC Sodium Chloride 90 meq/Potassium Chloride 15 meq/ Potassium Phosphate 18 mmol/ Magnesium Sulfate 8 meq/Calcium Gluconate 15 meq/ Multivitamins 10 ml/Chromium/ Copper/Manganese/ Seleni/Zn 0.5 ml/ Insulin Human Regular 15 unit/ Total Parenteral Nutrition/Amino Acids/Dextrose/ Fat Emulsion Intravenous 1,400 ml @ 58.333 mls/ hr TPN CONT IV Last administered on 07/18/19at 21:47; Start 07/18/19 at 22:00; Stop 07/19/19 at 21:59; Status DC Sodium Chloride 90 meq/Potassium Chloride 15 meq/ Potassium Phosphate 18 mmol/ Magnesium Sulfate 8 meq/Calcium Gluconate 15 meq/ Multivitamins 10 ml/Chromium/ Copper/Manganese/ Seleni/Zn 0.5 ml/ Insulin Human Regular 20 unit/ Total Parenteral Nutrition/Amino Acids/Dextrose/ Fat Emulsion Intravenous 1,400 ml @ 58.333 mls/ hr TPN CONT IV Last administered on 07/19/19at 21:36; Start 07/19/19 at 22:00; Stop 07/20/19 at 21:59; Status DC Alteplase, Recombinant (Cathflo For Central Catheter Clearance) 1 mg 1X ONCE INT CAT Last administered on 07/19/19at 20:03; Start 07/19/19 at 19:30; Stop 07/19/19 at 19:46; Status DC Alteplase, Recombinant (Cathflo For Central Catheter Clearance) 1 mg 1X ONCE INT CAT Last administered on 07/19/19at 22:05; Start 07/19/19 at 22:00; Stop 07/19/19 at 22:01; Status DC Sodium Chloride 90 meq/Potassium Chloride 15 meq/ Potassium Phosphate 18 mmol/ Magnesium Sulfate 8 meq/Calcium Gluconate 15 meq/ Multivitamins 10 ml/Chromium/ Copper/Manganese/ Seleni/Zn 0.5 ml/ Insulin Human Regular 20 unit/ Total Parenteral Nutrition/Amino Acids/Dextrose/ Fat Emulsion Intravenous 1,400 ml @ 58.333 mls/ hr TPN CONT IV Last administered on 07/20/19at 21:30; Start 07/20/19 at 22:00; Stop 07/21/19 at 21:59; Status DC Dexmedetomidine HCl 400 mcg/ Sodium Chloride 100 ml @ 0 mls/hr CONT PRN IV ANXIETY / AGITATION Last administered on 09/17/19at 12:57; Start 07/21/19 at 08:15; Stop 09/17/19 at 18:31; Status DC Sodium Chloride 500 ml @ 500 mls/hr 1X PRN PRN IV ELEVATED BP, SEE COMMENTS; Start 07/21/19 at 08:15 Atropine Sulfate (ATROPINE 0.5mg SYRINGE) 0.5 mg PRN Q5MIN PRN IV SEE COMMENTS; Start 07/21/19 at 08:15 Furosemide (Lasix) 20 mg 1X ONCE IVP Last administered on 07/21/19at 08:19; Start 07/21/19 at 08:15; Stop 07/21/19 at 08:16; Status DC Lidocaine HCl (Buffered Lidocaine 1%) 3 ml STK-MED ONCE .ROUTE ; Start 07/21/19 at 08:39; Stop 07/21/19 at 08:39; Status DC Lidocaine HCl (Buffered Lidocaine 1%) 6 ml 1X ONCE INJ Last administered on 07/21/19at 09:05; Start 07/21/19 at 09:00; Stop 07/21/19 at 09:06; Status DC Sodium Chloride 90 meq/Potassium Chloride 15 meq/ Potassium Phosphate 18 mmol/ Magnesium Sulfate 8 meq/Calcium Gluconate 15 meq/ Multivitamins 10 ml/Chromium/ Copper/Manganese/ Seleni/Zn 0.5 ml/ Insulin Human Regular 20 unit/ Total Parenteral Nutrition/Amino Acids/Dextrose/ Fat Emulsion Intravenous 1,400 ml @ 58.333 mls/ hr TPN CONT IV Last administered on 07/21/19at 22:45; Start 07/21/19 at 22:00; Stop 07/22/19 at 21:59; Status DC Sodium Chloride 1,000 ml @ 1,000 mls/hr Q1H PRN IV hypotension; Start 07/22/19 at 07:30; Stop 07/22/19 at 13:29; Status DC Albumin Human 200 ml @ 200 mls/hr 1X PRN PRN IV Hypotension Last administered on 07/22/19at 09:36; Start 07/22/19 at 07:30; Stop 07/22/19 at 13:29; Status DC Sodium Chloride (Normal Saline Flush) 10 ml 1X PRN PRN IV AP catheter pack; Start 07/22/19 at 07:30; Stop 07/22/19 at 21:29; Status DC Sodium Chloride (Normal Saline Flush) 10 ml 1X PRN PRN IV TOP FRAME FITTER catheter pack; Start 07/22/19 at 07:30; Stop 07/23/19 at 07:29; Status DC Sodium Chloride 1,000 ml @ 400 mls/hr Q2H30M PRN IV PATENCY; Start 07/22/19 at 07:30; Stop 07/22/19 at 19:29; Status DC Info (PHARMACY MONITORING -- do not chart) 1 each PRN DAILY PRN MC SEE COMMENTS; Start 07/22/19 at 07:30; Stop 07/22/19 at 13:02; Status DC Info (PHARMACY MONITORING -- do not chart) 1 each PRN DAILY PRN MC SEE COMMENTS; Start 07/22/19 at 07:30; Stop 07/24/19 at 12:45; Status DC Sodium Chloride 90 meq/Potassium Chloride 15 meq/ Potassium Phosphate 10 mmol/ Magnesium Sulfate 8 meq/Calcium Gluconate 15 meq/ Multivitamins 10 ml/Chromium/ Copper/Manganese/ Seleni/Zn 0.5 ml/ Insulin Human Regular 25 unit/ Total Parenteral Nutrition/Amino Acids/Dextrose/ Fat Emulsion Intravenous 1,400 ml @ 58.333 mls/ hr TPN CONT IV Last administered on 07/22/19at 22:19; Start 07/22/19 at 22:00; Stop 07/23/19 at 21:59; Status DC Heparin Sodium (Porcine) (Heparin Sodium) 5,000 unit Q12HR SQ Last administered on 08/14/19at 08:59; Start 07/22/19 at 21:00; Stop 08/14/19 at 10:05; Status DC Ondansetron HCl (Zofran) 4 mg PRN Q6HRS PRN IV NAUSEA/VOMITING; Start 07/25/19 at 07:00; Stop 07/26/19 at 06:59; Status DC Fentanyl Citrate (Fentanyl 2ml Vial) 25 mcg PRN Q5MIN PRN IV MILD PAIN 1-3; Start 07/25/19 at 07:00; Stop 07/26/19 at 06:59; Status DC Fentanyl Citrate (Fentanyl 2ml Vial) 50 mcg PRN Q5MIN PRN IV MODERATE TO SEVERE PAIN; Start 07/25/19 at 07:00; Stop 07/26/19 at 06:59; Status DC Ringer's Solution 1,000 ml @ 30 mls/hr Q24H IV ; Start 07/25/19 at 07:00; Stop 07/25/19 at 18:59; Status DC Lidocaine HCl (Xylocaine-Mpf 1% 2ml Vial) 2 ml PRN 1X PRN ID PRIOR TO IV START; Start 07/25/19 at 07:00; Stop 07/26/19 at 06:59; Status DC Prochlorperazine Edisylate (Compazine) 5 mg PACU PRN PRN IV NAUSEA, MRX1; Start 07/25/19 at 07:00; Stop 07/26/19 at 06:59; Status DC Sodium Chloride 1,000 ml @ 1,000 mls/hr Q1H PRN IV hypotension; Start 07/23/19 at 09:10; Stop 07/23/19 at 15:09; Status DC Albumin Human 200 ml @ 200 mls/hr 1X PRN PRN IV Hypotension Last administered on 07/23/19at 10:10; Start 07/23/19 at 09:15; Stop 07/23/19 at 15:14; Status DC Sodium Chloride 1,000 ml @ 400 mls/hr Q2H30M PRN IV PATENCY; Start 07/23/19 at 09:10; Stop 07/23/19 at 21:09; Status DC Info (PHARMACY MONITORING -- do not chart) 1 each PRN DAILY PRN MC SEE COMMENTS; Start 07/23/19 at 09:15; Stop 07/24/19 at 12:45; Status DC Info (PHARMACY MONITORING -- do not chart) 1 each PRN DAILY PRN MC SEE COMMENTS; Start 07/23/19 at 09:15; Stop 07/24/19 at 12:45; Status DC Sodium Chloride 90 meq/Potassium Chloride 15 meq/ Potassium Phosphate 10 mmol/ Magnesium Sulfate 8 meq/Calcium Gluconate 15 meq/ Multivitamins 10 ml/Chromium/ Copper/Manganese/ Seleni/Zn 0.5 ml/ Insulin Human Regular 25 unit/ Total Parenteral Nutrition/Amino Acids/Dextrose/ Fat Emulsion Intravenous 1,400 ml @ 58.333 mls/ hr TPN CONT IV Last administered on 07/23/19at 22:10; Start 07/23/19 at 22:00; Stop 07/24/19 at 21:59; Status DC Magnesium Sulfate 50 ml @ 25 mls/hr PRN DAILY PRN IV for Mag < 1.7 on am labs Last administered on 08/08/19at 17:27; Start 07/24/19 at 09:15 Sodium Chloride 90 meq/Potassium Chloride 15 meq/ Potassium Phosphate 10 mmol/ Magnesium Sulfate 8 meq/Calcium Gluconate 15 meq/ Multivitamins 10 ml/Chromium/ Copper/Manganese/ Seleni/Zn 0.5 ml/ Insulin Human Regular 25 unit/ Total Parenteral Nutrition/Amino Acids/Dextrose/ Fat Emulsion Intravenous 1,400 ml @ 58.333 mls/ hr TPN CONT IV Last administered on 07/24/19at 21:20; Start 07/24/19 at 22:00; Stop 07/25/19 at 21:59; Status DC Sodium Chloride 1,000 ml @ 1,000 mls/hr Q1H PRN IV hypotension; Start 07/24/19 at 12:23; Stop 07/24/19 at 18:22; Status DC Albumin Human 200 ml @ 200 mls/hr 1X ONCE IV Last administered on 07/24/19at 13:34; Start 07/24/19 at 12:30; Stop 07/24/19 at 13:29; Status DC Diphenhydramine HCl (Benadryl) 25 mg 1X PRN PRN IV ITCHING; Start 07/24/19 at 12:30; Stop 07/25/19 at 12:29; Status DC Diphenhydramine HCl (Benadryl) 25 mg 1X PRN PRN IV ITCHING; Start 07/24/19 at 12:30; Stop 07/25/19 at 12:29; Status DC Info (PHARMACY MONITORING -- do not chart) 1 each PRN DAILY PRN MC SEE COMMENTS; Start 07/24/19 at 12:30; Status Cancel Bupivacaine HCl/ Epinephrine Bitart (Sensorcain-Epi 0.5%-1:[id number] Mpf) 30 ml STK-MED ONCE .ROUTE Last administered on 07/25/19at 11:44; Start 07/25/19 at 11:00; Stop 07/25/19 at 11:01; Status DC Cellulose (Surgicel Fibrillar 1x2) 1 each STK-MED ONCE .ROUTE ; Start 07/25/19 at 11:00; Stop 07/25/19 at 11:01; Status DC Sodium Chloride 90 meq/Potassium Chloride 15 meq/ Potassium Phosphate 10 mmol/ Magnesium Sulfate 12 meq/Calcium Gluconate 15 meq/ Multivitamins 10 ml/Chromium/ Copper/Manganese/ Seleni/Zn 0.5 ml/ Insulin Human Regular 25 unit/ Total Parenteral Nutrition/Amino Acids/Dextrose/ Fat Emulsion Intravenous 1,400 ml @ 58.333 mls/ hr TPN CONT IV Last administered on 07/25/19at 22:24; Start 07/25/19 at 22:00; Stop 07/26/19 at 21:59; Status DC Propofol 20 ml @ As Directed STK-MED ONCE IV ; Start 07/25/19 at 11:07; Stop 07/25/19 at 11:07; Status DC Cellulose (Surgicel Hemostat 4x8) 1 each STK-MED ONCE .ROUTE Last administered on 07/25/19at 11:44; Start 07/25/19 at 11:55; Stop 07/25/19 at 11:56; Status DC Sevoflurane (Ultane) 60 ml STK-MED ONCE IH ; Start 07/25/19 at 12:46; Stop 07/25/19 at 12:46; Status DC Sodium Chloride 1,000 ml @ 1,000 mls/hr Q1H PRN IV hypotension; Start 07/25/19 at 13:51; Stop 07/25/19 at 19:50; Status DC Albumin Human 200 ml @ 200 mls/hr 1X PRN PRN IV Hypotension Last administered on 07/25/19at 14:51; Start 07/25/19 at 14:00; Stop 07/25/19 at 19:59; Status DC Diphenhydramine HCl (Benadryl) 25 mg 1X PRN PRN IV ITCHING; Start 07/25/19 at 14:00; Stop 07/26/19 at 13:59; Status DC Diphenhydramine HCl (Benadryl) 25 mg 1X PRN PRN IV ITCHING; Start 07/25/19 at 14:00; Stop 07/26/19 at 13:59; Status DC Sodium Chloride 1,000 ml @ 400 mls/hr Q2H30M PRN IV PATENCY; Start 07/25/19 at 13:51; Stop 07/26/19 at 01:50; Status DC Info (PHARMACY MONITORING -- do not chart) 1 each PRN DAILY PRN MC SEE COMMENTS; Start 07/25/19 at 14:00; Stop 07/28/19 at 08:16; Status DC Heparin Sodium (Porcine) (Hep Lock Adult) 500 unit STK-MED ONCE IVP ; Start 07/26/19 at 09:29; Stop 07/26/19 at 09:30; Status DC Sodium Chloride 1,000 ml @ 1,000 mls/hr Q1H PRN IV hypotension; Start 07/26/19 at 10:43; Stop 07/26/19 at 16:42; Status DC Sodium Chloride 1,000 ml @ 400 mls/hr Q2H30M PRN IV PATENCY; Start 07/26/19 at 10:43; Stop 07/26/19 at 22:42; Status DC Info (PHARMACY MONITORING -- do not chart) 1 each PRN DAILY PRN MC SEE COMMENTS; Start 07/26/19 at 10:45; Status UNV Info (PHARMACY MONITORING -- do not chart) 1 each PRN DAILY PRN MC SEE COMMENTS; Start 07/26/19 at 10:45; Status UNV Sodium Chloride 90 meq/Potassium Chloride 15 meq/ Magnesium Sulfate 12 meq/Calcium Gluconate 15 meq/ Multivitamins 10 ml/Chromium/ Copper/Manganese/ Seleni/Zn 0.5 ml/ Insulin Human Regular 25 unit/ Total Parenteral Nutrition/Amino Acids/Dextrose/ Fat Emulsion Intravenous 1,400 ml @ 58.333 mls/ hr TPN CONT IV Last administered on 07/26/19at 22:13; Start 07/26/19 at 22:00; Stop 07/27/19 at 21:59; Status DC Sodium Chloride 1,000 ml @ 1,000 mls/hr Q1H PRN IV hypotension; Start 07/27/19 at 07:50; Stop 07/27/19 at 13:49; Status DC Albumin Human 200 ml @ 200 mls/hr 1X ONCE IV ; Start 07/27/19 at 08:00; Stop 07/27/19 at 08:53; Status DC Diphenhydramine HCl (Benadryl) 25 mg 1X PRN PRN IV ITCHING; Start 07/27/19 at 08:00; Stop 07/28/19 at 07:59; Status DC Diphenhydramine HCl (Benadryl) 25 mg 1X PRN PRN IV ITCHING; Start 07/27/19 at 08:00; Stop 07/28/19 at 07:59; Status DC Info (PHARMACY MONITORING -- do not chart) 1 each PRN DAILY PRN MC SEE PIPE TS; Start 07/27/19 at 08:00; Stop 07/28/19 at 08:16; Status DC Albumin Human 50 ml @ 50 mls/hr 1X ONCE IV ; Start 07/27/19 at 08:53; Stop 07/27/19 at 08:56; Status DC Albumin Human 200 ml @ 50 mls/hr PRN 1X PRN IV HYPOTENSION Last administered on 08/02/19at 11:54; Start 07/27/19 at 09:00; Stop 09/08/19 at 11:14; Status DC Meropenem 500 mg/ Sodium Chloride 50 ml @ 100 mls/hr Q12H IV Last administered on 08/16/19at 10:45; Start 07/27/19 at 10:00; Stop 08/16/19 at 12:37; Status DC Sodium Chloride 90 meq/Magnesium Sulfate 12 meq/ Calcium Gluconate 15 meq/ Multivitamins 10 ml/Chromium/ Copper/Manganese/ Seleni/Zn 0.5 ml/ Insulin Human Regular 25 unit/ Total Parenteral Nutrition/Amino Acids/Dextrose/ Fat Emulsion Intravenous 1,400 ml @ 58.333 mls/ hr TPN CONT IV Last administered on 07/27/19at 21:41; Start 07/27/19 at 22:00; Stop 07/28/19 at 21:59; Status DC Sodium Chloride 1,000 ml @ 1,000 mls/hr Q1H PRN IV hypotension; Start 07/28/19 at 07:58; Stop 07/28/19 at 13:57; Status DC Albumin Human 200 ml @ 200 mls/hr 1X PRN PRN IV Hypotension Last administered on 07/28/19at 09:30; Start 07/28/19 at 08:00; Stop 07/28/19 at 13:59; Status DC Sodium Chloride 1,000 ml @ 400 mls/hr Q2H30M PRN IV PATENCY; Start 07/28/19 at 07:58; Stop 07/28/19 at 19:57; Status DC Info (PHARMACY MONITORING -- do not chart) 1 each PRN DAILY PRN MC SEE COMMENTS; Start 07/28/19 at 08:00; Status Cancel Info (PHARMACY MONITORING -- do not chart) 1 each PRN DAILY PRN MC SEE COMMENTS; Start 07/28/19 at 08:15; Status UNV Sodium Chloride 90 meq/Potassium Phosphate 5 mmol/ Magnesium Sulfate 12 meq/Calcium Gluconate 15 meq/ Multivitamins 10 ml/Chromium/ Copper/Manganese/ Seleni/Zn 0.5 ml/ Insulin Human Regular 30 unit/ Total Parenteral Nutrition/Amino Acids/Dextrose/ Fat Emulsion Intravenous 1,400 ml @ 58.333 mls/ hr TPN CONT IV Last administered on 07/28/19at 22:08; Start 07/28/19 at 22:00; Stop 07/29/19 at 21:59; Status DC Linezolid/Dextrose 300 ml @ 300 mls/hr Q12HR IV Last administered on 08/08/19at 20:40; Start 07/29/19 at 11:00; Stop 08/09/19 at 08:10; Status DC Sodium Chloride 90 meq/Potassium Phosphate 15 mmol/ Magnesium Sulfate 12 meq/Calcium Gluconate 15 meq/ Multivitamins 10 ml/Chromium/ Copper/Manganese/ Seleni/Zn 0.5 ml/ Insulin Human Regular 30 unit/ Total Parenteral Nutrition/Amino Acids/Dextrose/ Fat Emulsion Intravenous 1,400 ml @ 58.333 mls/ hr TPN CONT IV Last administered on 07/29/19at 21:49; Start 07/29/19 at 22:00; Stop 07/30/19 at 21:59; Status DC Sodium Chloride 90 meq/Potassium Phosphate 15 mmol/ Magnesium Sulfate 12 meq/Calcium Gluconate 15 meq/ Multivitamins 10 ml/Chromium/ Copper/Manganese/ Seleni/Zn 0.5 ml/ Insulin Human Regular 40 unit/ Total Parenteral Nutrition/Amino Acids/Dextrose/ Fat Emulsion Intravenous 1,400 ml @ 58.333 mls/ hr TPN CONT IV Last administered on 07/30/19at 21:21; Start 07/30/19 at 22:00; Stop 07/31/19 at 21:59; Status DC Sodium Chloride 1,000 ml @ 1,000 mls/hr Q1H PRN IV hypotension; Start 07/30/19 at 13:26; Stop 07/30/19 at 19:25; Status DC Albumin Human 200 ml @ 200 mls/hr 1X PRN PRN IV Hypotension Last administered on 07/30/19at 15:00; Start 07/30/19 at 13:30; Stop 07/30/19 at 19:29; Status DC Sodium Chloride (Normal Saline Flush) 10 ml 1X PRN PRN IV AP catheter pack; Start 07/30/19 at 13:30; Stop 07/31/19 at 13:29; Status DC Sodium Chloride (Normal Saline Flush) 10 ml 1X PRN PRN IV TOP FRAME FITTER catheter pack; Start 07/30/19 at 13:30; Stop 07/31/19 at 13:29; Status DC Sodium Chloride 1,000 ml @ 400 mls/hr Q2H30M PRN IV PATENCY; Start 07/30/19 at 13:26; Stop 07/31/19 at 01:25; Status DC Info (PHARMACY MONITORING -- do not chart) 1 each PRN DAILY PRN MC SEE COMMENTS; Start 07/30/19 at 13:30; Stop 07/30/19 at 13:33; Status DC Info (PHARMACY MONITORING -- do not chart) 1 each PRN DAILY PRN MC SEE COMMENTS; Start 07/30/19 at 13:30; Stop 07/30/19 at 13:34; Status DC Sodium Chloride 90 meq/Potassium Phosphate 19 mmol/ Magnesium Sulfate 12 meq/Calcium Gluconate 15 meq/ Multivitamins 10 ml/Chromium/ Copper/Manganese/ Seleni/Zn 0.5 ml/ Insulin Human Regular 40 unit/ Total Parenteral Nutrition/Amino Acids/Dextrose/ Fat Emulsion Intravenous 1,400 ml @ 58.333 mls/ hr TPN CONT IV Last administered on 07/31/19at 21:54; Start 07/31/19 at 22:00; Stop 08/01/19 at 21:59; Status DC Sodium Chloride 1,000 ml @ 1,000 mls/hr Q1H PRN IV hypotension; Start 08/01/19 at 09:35; Stop 08/01/19 at 15:34; Status DC Albumin Human 200 ml @ 200 mls/hr 1X PRN PRN IV Hypotension; Start 08/01/19 at 09:45; Stop 08/01/19 at 15:44; Status DC Diphenhydramine HCl (Benadryl) 25 mg 1X PRN PRN IV ITCHING; Start 08/01/19 at 09:45; Stop 08/02/19 at 09:44; Status DC Diphenhydramine HCl (Benadryl) 25 mg 1X PRN PRN IV ITCHING; Start 08/01/19 at 09:45; Stop 08/02/19 at 09:44; Status DC Sodium Chloride 1,000 ml @ 400 mls/hr Q2H30M PRN IV PATENCY; Start 08/01/19 at 09:35; Stop 08/01/19 at 21:34; Status DC Info (PHARMACY MONITORING -- do not chart) 1 each PRN DAILY PRN MC SEE COMMENTS; Start 08/01/19 at 09:45; Status Cancel Sodium Chloride 100 meq/Potassium Phosphate 19 mmol/ Magnesium Sulfate 12 meq/Calcium Gluconate 15 meq/ Multivitamins 10 ml/Chromium/ Copper/Manganese/ Seleni/Zn 0.5 ml/ Insulin Human Regular 40 unit/ Potassium Chloride 20 meq/ Total Parenteral Nutrition/Amino Acids/Dextrose/ Fat Emulsion Intravenous 1,400 ml @ 58.333 mls/ hr TPN CONT IV Last administered on 08/01/19at 22:02; Start 08/01/19 at 22:00; Stop 08/02/19 at 21:59; Status DC Furosemide (Lasix) 40 mg 1X ONCE IVP Last administered on 08/01/19at 14:39; Start 08/01/19 at 14:30; Stop 08/01/19 at 14:31; Status DC Metronidazole 100 ml @ 100 mls/hr Q8HRS IV Last administered on 08/09/19at 06:04; Start 08/02/19 at 10:00; Stop 08/09/19 at 08:10; Status DC Sodium Chloride 1,000 ml @ 1,000 mls/hr Q1H PRN IV hypotension; Start 08/02/19 at 08:00; Stop 08/02/19 at 13:59; Status DC Albumin Human 200 ml @ 200 mls/hr 1X PRN PRN IV Hypotension; Start 08/02/19 at 08:00; Stop 08/02/19 at 13:59; Status DC Sodium Chloride 1,000 ml @ 400 mls/hr Q2H30M PRN IV PATENCY; Start 08/02/19 at 08:00; Stop 08/02/19 at 19:59; Status DC Info (PHARMACY MONITORING -- do not chart) 1 each PRN DAILY PRN MC SEE COMMENTS; Start 08/02/19 at 11:30; Status UNV Info (PHARMACY MONITORING -- do not chart) 1 each PRN DAILY PRN MC SEE COMMENTS; Start 08/02/19 at 11:30; Stop 08/04/19 at 12:13; Status DC Sodium Chloride 100 meq/Potassium Phosphate 19 mmol/ Magnesium Sulfate 12 meq/Calcium Gluconate 15 meq/ Multivitamins 10 ml/Chromium/ Copper/Manganese/ Seleni/Zn 0.5 ml/ Insulin Human Regular 40 unit/ Potassium Chloride 20 meq/ Total Parenteral Nutrition/Amino Acids/Dextrose/ Fat Emulsion Intravenous 1,400 ml @ 58.333 mls/ hr TPN CONT IV Last administered on 08/02/19at 21:52; Start 08/02/19 at 22:00; Stop 08/03/19 at 21:59; Status DC Sodium Chloride (Normal Saline Flush) 10 ml QSHIFT PRN IV AFTER MEDS AND BLOOD DRAWS; Start 08/02/19 at 15:00; Stop 08/30/19 at 11:27; Status DC Sodium Chloride (Normal Saline Flush) 10 ml PRN Q5MIN PRN IV AFTER MEDS AND BLOOD DRAWS; Start 08/02/19 at 15:00 Sodium Chloride (Normal Saline Flush) 20 ml PRN Q5MIN PRN IV AFTER MEDS AND BLOOD DRAWS; Start 08/02/19 at 15:00 Sodium Chloride 100 meq/Potassium Phosphate 19 mmol/ Magnesium Sulfate 12 meq/Calcium Gluconate 15 meq/ Multivitamins 10 ml/Chromium/ Copper/Manganese/ Seleni/Zn 0.5 ml/ Insulin Human Regular 40 unit/ Potassium Chloride 20 meq/ Total Parenteral Nutrition/Amino Acids/Dextrose/ Fat Emulsion Intravenous 1,400 ml @ 58.333 mls/ hr TPN CONT IV Last administered on 08/03/19at 21:20; Start 08/03/19 at 22:00; Stop 08/04/19 at 21:59; Status DC Lidocaine HCl (Buffered Lidocaine 1%) 3 ml STK-MED ONCE .ROUTE ; Start 08/03/19 at 13:16; Stop 08/03/19 at 13:16; Status DC Lidocaine HCl (Buffered Lidocaine 1%) 6 ml 1X ONCE INJ Last administered on 08/03/19at 13:45; Start 08/03/19 at 13:30; Stop 08/03/19 at 13:31; Status DC Albumin Human 100 ml @ 100 mls/hr 1X ONCE IV Last administered on 08/03/19at 15:41; Start 08/03/19 at 15:00; Stop 08/03/19 at 15:59; Status DC Albumin Human 50 ml @ 50 mls/hr 1X ONCE IV Last administered on 08/03/19at 15:00; Start 08/03/19 at 15:00; Stop 08/03/19 at 15:59; Status DC Info (PHARMACY MONITORING -- do not chart) 1 each PRN DAILY PRN MC SEE COMMENTS; Start 08/04/19 at 11:30; Status Cancel Info (PHARMACY MONITORING -- do not chart) 1 each PRN DAILY PRN MC SEE COMMENTS; Start 08/04/19 at 11:30; Status UNV Sodium Chloride 100 meq/Potassium Phosphate 10 mmol/ Magnesium Sulfate 12 meq/Calcium Gluconate 15 meq/ Multivitamins 10 ml/Chromium/ Copper/Manganese/ Seleni/Zn 0.5 ml/ Insulin Human Regular 35 unit/ Potassium Chloride 20 meq/ Total Parenteral Nutrition/Amino Acids/Dextrose/ Fat Emulsion Intravenous 1,400 ml @ 58.333 mls/ hr TPN CONT IV Last administered on 08/04/19at 22:10; Start 08/04/19 at 22:00; Stop 08/05/19 at 21:59; Status DC Sodium Chloride 100 meq/Potassium Phosphate 5 mmol/ Magnesium Sulfate 12 meq/Calcium Gluconate 15 meq/ Multivitamins 10 ml/Chromium/ Copper/Manganese/ Seleni/Zn 0.5 ml/ Insulin Human Regular 35 unit/ Potassium Chloride 20 meq/ Total Parenteral Nutrition/Amino Acids/Dextrose/ Fat Emulsion Intravenous 1,400 ml @ 58.333 mls/ hr TPN CONT IV Last administered on 08/05/19at 22:59; Start 08/05/19 at 22:00; Stop 08/06/19 at 21:59; Status DC Sodium Chloride 1,000 ml @ 1,000 mls/hr Q1H PRN IV hypotension; Start 08/06/19 at 08:27; Stop 08/06/19 at 14:26; Status DC Albumin Human 200 ml @ 200 mls/hr 1X PRN PRN IV Hypotension Last administered on 08/06/19at 09:18; Start 08/06/19 at 08:30; Stop 08/06/19 at 14:29; Status DC Sodium Chloride 1,000 ml @ 400 mls/hr Q2H30M PRN IV PATENCY; Start 08/06/19 at 08:27; Stop 08/06/19 at 20:26; Status DC Info (PHARMACY MONITORING -- do not chart) 1 each PRN DAILY PRN MC SEE COMMENTS; Start 08/06/19 at 08:30; Status Cancel Info (PHARMACY MONITORING -- do not chart) 1 each PRN DAILY PRN MC SEE COMMENTS; Start 08/06/19 at 08:30; Stop 08/14/19 at 13:10; Status DC Sodium Chloride 100 meq/Potassium Chloride 40 meq/ Magnesium Sulfate 15 meq/Calcium Gluconate 15 meq/ Multivitamins 10 ml/Chromium/ Copper/Manganese/ Seleni/Zn 0.5 ml/ Insulin Human Regular 35 unit/ Total Parenteral Nutrition/Amino Acids/Dextrose/ Fat Emulsion Intravenous 1,400 ml @ 58.333 mls/ hr TPN CONT IV Last administered on 08/06/19at 22:00; Start 08/06/19 at 22:00; Stop 08/07/19 at 21:59; Status DC Potassium Chloride/Water 100 ml @ 100 mls/hr 1X ONCE IV Last administered on 08/06/19at 17:28; Start 08/06/19 at 14:45; Stop 08/06/19 at 15:44; Status DC Sodium Chloride 100 meq/Potassium Chloride 40 meq/ Magnesium Sulfate 15 meq/Calcium Gluconate 15 meq/ Multivitamins 10 ml/Chromium/ Copper/Manganese/ Seleni/Zn 0.5 ml/ Insulin Human Regular 35 unit/ Total Parenteral Nutrition/Amino Acids/Dextrose/ Fat Emulsion Intravenous 1,400 ml @ 58.333 mls/ hr TPN CONT IV Last administered on 08/07/19at 22:46; Start 08/07/19 at 22:00; Stop 08/08/19 at 21:59; Status DC Sodium Chloride 100 meq/Potassium Chloride 40 meq/ Magnesium Sulfate 20 meq/Calcium Gluconate 15 meq/ Multivitamins 10 ml/Chromium/ Copper/Manganese/ Seleni/Zn 0.5 ml/ Insulin Human Regular 35 unit/ Total Parenteral Nutrition/Amino Acids/Dextrose/ Fat Emulsion Intravenous 1,400 ml @ 58.333 mls/ hr TPN CONT IV Last administered on 08/08/19at 22:31; Start 08/08/19 at 22:00; Stop 08/09/19 at 21:59; Status DC Fentanyl Citrate (Fentanyl 2ml Vial) 50 mcg PRN Q2HR PRN IVP PAIN Last administered on 08/15/19at 13:32; Start 08/08/19 at 21:00; Stop 08/16/19 at 12:53; Status DC Fentanyl Citrate (Fentanyl 2ml Vial) 25 mcg PRN Q2HR PRN IVP PAIN; Start 08/08/19 at 21:00; Stop 08/16/19 at 12:54; Status DC Enoxaparin Sodium (Lovenox 100mg Syringe) 100 mg Q12HR SQ ; Start 08/09/19 at 21:00; Status UNV Amino Acids/ Glycerin/ Electrolytes 1,000 ml @ 75 mls/hr [id number] IV ; Start 08/08/19 at 21:15; Status UNV Sodium Chloride 1,000 ml @ 1,000 mls/hr Q1H PRN IV hypotension; Start 08/09/19 at 07:56; Stop 08/09/19 at 13:55; Status DC Albumin Human 200 ml @ 200 mls/hr 1X PRN PRN IV Hypotension Last administered on 08/09/19at 08:40; Start 08/09/19 at 08:00; Stop 08/09/19 at 13:59; Status DC Sodium Chloride 1,000 ml @ 400 mls/hr Q2H30M PRN IV PATENCY; Start 08/09/19 at 07:56; Stop 08/09/19 at 19:55; Status DC Info (PHARMACY MONITORING -- do not chart) 1 each PRN DAILY PRN MC SEE COMMENTS; Start 08/09/19 at 08:00; Status UNV Info (PHARMACY MONITORING -- do not chart) 1 each PRN DAILY PRN MC SEE COMMENTS; Start 08/09/19 at 08:00; Status UNV Daptomycin 430 mg/ Sodium Chloride 50 ml @ 100 mls/hr Q24H IV Last administered on 08/09/19at 12:35; Start 08/09/19 at 09:00; Stop 08/09/19 at 12:49; Status DC Sodium Chloride 100 meq/Potassium Chloride 40 meq/ Magnesium Sulfate 20 meq/Calcium Gluconate 15 meq/ Multivitamins 10 ml/Chromium/ Copper/Manganese/ Seleni/Zn 0.5 ml/ Insulin Human Regular 35 unit/ Total Parenteral Nutrition/Amino Acids/Dextrose/ Fat Emulsion Intravenous 1,400 ml @ 58.333 mls/ hr TPN CONT IV Last administered on 08/09/19at 21:26; Start 08/09/19 at 22:00; Stop 08/10/19 at 21:59; Status DC Daptomycin 430 mg/ Sodium Chloride 50 ml @ 100 mls/hr Q48H IV ; Start 08/11/19 at 09:00; Stop 08/10/19 at 11:55; Status DC Sodium Chloride 100 meq/Potassium Chloride 40 meq/ Magnesium Sulfate 20 meq/Calcium Gluconate 15 meq/ Multivitamins 10 ml/Chromium/ Copper/Manganese/ Seleni/Zn 0.5 ml/ Insulin Human Regular 35 unit/ Total Parenteral Nutrition/Amino Acids/Dextrose/ Fat Emulsion Intravenous 1,400 ml @ 58.333 mls/ hr TPN CONT IV Last administered on 08/10/19at 22:27; Start 08/10/19 at 22:00; Stop 08/11/19 at 21:59; Status DC Daptomycin 430 mg/ Sodium Chloride 50 ml @ 100 mls/hr Q24H IV Last administ ered on 08/12/19at 15:07; Start 08/10/19 at 13:00; Stop 08/13/19 at 13:15; Status DC Sodium Chloride 100 meq/Potassium Chloride 40 meq/ Magnesium Sulfate 20 meq/Calcium Gluconate 10 meq/ Multivitamins 10 ml/Chromium/ Copper/Manganese/ Seleni/Zn 0.5 ml/ Insulin Human Regular 35 unit/ Total Parenteral Nutrition/Amino Acids/Dextrose/ Fat Emulsion Intravenous 1,400 ml @ 58.333 mls/ hr TPN CONT IV Last administered on 08/12/19at 00:06; Start 08/11/19 at 22:00; Stop 08/12/19 at 21:59; Status DC Alteplase, Recombinant (Cathflo For Central Catheter Clearance) 1 mg 1X ONCE INT CAT Last administered on 08/12/19at 11:44; Start 08/12/19 at 10:45; Stop 08/12/19 at 10:46; Status DC Ondansetron HCl (Zofran) 4 mg PRN Q6HRS PRN IV NAUSEA/VOMITING; Start 08/15/19 at 07:00; Stop 08/16/19 at 06:59; Status DC Fentanyl Citrate (Fentanyl 2ml Vial) 25 mcg PRN Q5MIN PRN IV MILD PAIN 1-3; Start 08/15/19 at 07:00; Stop 08/16/19 at 06:59; Status DC Fentanyl Citrate (Fentanyl 2ml Vial) 50 mcg PRN Q5MIN PRN IV MODERATE TO SEVERE PAIN Last administered on 08/15/19at 10:17; Start 08/15/19 at 07:00; Stop 08/16/19 at 06:59; Status DC Ringer's Solution 1,000 ml @ 30 mls/hr Q24H IV ; Start 08/15/19 at 07:00; Stop 08/15/19 at 18:59; Status DC Lidocaine HCl (Xylocaine-Mpf 1% 2ml Vial) 2 ml PRN 1X PRN ID PRIOR TO IV START; Start 08/15/19 at 07:00; Stop 08/16/19 at 06:59; Status DC Prochlorperazine Edisylate (Compazine) 5 mg PACU PRN PRN IV NAUSEA, MRX1; Start 08/15/19 at 07:00; Stop 08/16/19 at 06:59; Status DC Sodium Acetate 50 meq/Potassium Acetate 55 meq/ Magnesium Sulfate 20 meq/Calcium Gluconate 10 meq/ Multivitamins 10 ml/Chromium/ Copper/Manganese/ Seleni/Zn 0.5 ml/ Insulin Human Regular 35 unit/ Total Parenteral Nutrition/Amino Acids/Dextrose/ Fat Emulsion Intravenous 1,400 ml @ 58.333 mls/ hr TPN CONT IV ; Start 08/12/19 at 22:00; Stop 08/12/19 at 14:15; Status DC Sodium Acetate 50 meq/Potassium Acetate 55 meq/ Magnesium Sulfate 20 meq/Calcium Gluconate 10 meq/ Multivitamins 10 ml/Chromium/ Copper/Manganese/ Seleni/Zn 0.5 ml/ Insulin Human Regular 35 unit/ Total Parenteral Nutrition/Amino Acids/Dextrose/ Fat Emulsion Intravenous 1,800 ml @ 75 mls/hr TPN CONT IV Last administered on 08/12/19at 22:38; Start 08/12/19 at 22:00; Stop 08/13/19 at 21:59; Status DC Sodium Chloride 1,000 ml @ 1,000 mls/hr Q1H PRN IV hypotension; Start 08/12/19 at 15:31; Stop 08/12/19 at 21:30; Status DC Diphenhydramine HCl (Benadryl) 25 mg 1X PRN PRN IV ITCHING; Start 08/12/19 at 15:45; Stop 08/13/19 at 15:44; Status DC Diphenhydramine HCl (Benadryl) 25 mg 1X PRN PRN IV ITCHING; Start 08/12/19 at 15:45; Stop 08/13/19 at 15:44; Status DC Sodium Chloride 1,000 ml @ 400 mls/hr Q2H30M PRN IV PATENCY; Start 08/12/19 at 15:31; Stop 08/13/19 at 03:30; Status DC Info (PHARMACY MONITORING -- do not chart) 1 each PRN DAILY PRN MC SEE COMMENTS; Start 08/12/19 at 15:45; Stop 09/13/19 at 14:14; Status DC Sodium Acetate 50 meq/Potassium Acetate 55 meq/ Magnesium Sulfate 20 meq/Calcium Gluconate 10 meq/ Multivitamins 10 ml/Chromium/ Copper/Manganese/ Seleni/Zn 0.5 ml/ Insulin Human Regular 35 unit/ Total Parenteral Nutrition/Amino Acids/Dextrose/ Fat Emulsion Intravenous 1,800 ml @ 75 mls/hr TPN CONT IV Last administered on 08/13/19at 22:03; Start 08/13/19 at 22:00; Stop 08/14/19 at 21:59; Status DC Daptomycin 430 mg/ Sodium Chloride 50 ml @ 100 mls/hr Q24H IV Last administered on 08/18/19at 13:00; Start 08/13/19 at 13:00; Stop 08/18/19 at 20:58; Status DC Heparin Sodium (Porcine) 1000 unit/Sodium Chloride 1,001 ml @ 1,001 mls/hr 1X ONCE IRR ; Start 08/15/19 at 06:00; Stop 08/15/19 at 06:59; Status DC Potassium Acetate 55 meq/Magnesium Sulfate 20 meq/ Calcium Gluconate 10 meq/ Multivitamins 10 ml/Chromium/ Copper/Manganese/ Seleni/Zn 0.5 ml/ Insulin Human Regular 35 unit/ Total Parenteral Nutrition/Amino Acids/Dextrose/ Fat Emulsion Intravenous 1,920 ml @ 80 mls/hr TPN CONT IV Last administered on 08/14/19at 22:10; Start 08/14/19 at 22:00; Stop 08/15/19 at 21:59; Status DC Dexamethasone Sodium Phosphate (Decadron) 4 mg STK-MED ONCE .ROUTE ; Start 08/15/19 at 10:56; Stop 08/15/19 at 10:57; Status DC Ondansetron HCl (Zofran) 4 mg STK-MED ONCE .ROUTE ; Start 08/15/19 at 10:56; Stop 08/15/19 at 10:57; Status DC Rocuronium [place] (Zemuron) 50 mg STK-MED ONCE .ROUTE ; Start 08/15/19 at 10:56; Stop 08/15/19 at 10:57; Status DC Fentanyl Citrate (Fentanyl 2ml Vial) 100 mcg STK-MED ONCE .ROUTE ; Start 08/15/19 at 10:56; Stop 08/15/19 at 10:57; Status DC Bupivacaine HCl/ Epinephrine Bitart (Sensorcain-Epi 0.5%-1:327300 Mpf) 30 ml STK-MED ONCE .ROUTE Last administered on 08/15/19at 12:01; Start 08/15/19 at 10:58; Stop 08/15/19 at 10:58; Status DC Cellulose (Surgicel Hemostat 2x14) 1 each STK-MED ONCE .ROUTE ; Start 08/15/19 at 10:58; Stop 08/15/19 at 10:59; Status DC Iohexol (Omnipaque 300 Mg/ml) 50 ml STK-MED ONCE .ROUTE ; Start 08/15/19 at 10:58; Stop 08/15/19 at 10:59; Status DC Cellulose (Surgicel Hemostat 4x8) 1 each STK-MED ONCE .ROUTE ; Start 08/15/19 at 10:58; Stop 08/15/19 at 10:59; Status DC Bisacodyl (Dulcolax Supp) 10 mg STK-MED ONCE .ROUTE ; Start 08/15/19 at 10:59; Stop 08/15/19 at 10:59; Status DC Heparin Sodium (Porcine) 1000 unit/Sodium Chloride 1,001 ml @ 1,001 mls/hr 1X ONCE IRR ; Start 08/15/19 at 12:00; Stop 08/15/19 at 12:59; Status DC Propofol 20 ml @ As Directed STK-MED ONCE IV ; Start 08/15/19 at 11:05; Stop 08/15/19 at 11:05; Status DC Sevoflurane (Ultane) 90 ml STK-MED ONCE IH ; Start 08/15/19 at 11:05; Stop 08/15/19 at 11:05; Status DC Sevoflurane (Ultane) 60 ml STK-MED ONCE IH ; Start 08/15/19 at 12:26; Stop 08/15/19 at 12:27; Status DC Propofol 20 ml @ As Directed STK-MED ONCE IV ; Start 08/15/19 at 12:26; Stop 08/15/19 at 12:27; Status DC Phenylephrine HCl (PHENYLEPHRINE in 0.9% NACL PF) 1 mg STK-MED ONCE IV ; Start 08/15/19 at 12:34; Stop 08/15/19 at 12:34; Status DC Heparin Sodium (Porcine) (Heparin Sodium) 5,000 unit Q12HR SQ Last administered on 08/24/19at 20:57; Start 08/15/19 at 21:00; Stop 08/25/19 at 09:59; Status DC Sodium Chloride (Normal Saline Flush) 3 ml QSHIFT PRN IV AFTER MEDS AND BLOOD DRAWS; Start 08/15/19 at 13:45 Naloxone HCl (Narcan) 0.4 mg PRN Q2MIN PRN IV SEE INSTRUCTIONS Last administered on 09/24/19at 15:15; Start 08/15/19 at 13:45 Sodium Chloride 1,000 ml @ 25 mls/hr Q24H IV Last administered on 09/13/19at 13:37; Start 08/15/19 at 13:37; Stop 09/16/19 at 13:09; Status DC Naloxone HCl (Narcan) 0.4 mg PRN Q2MIN PRN IV SEE INSTRUCTIONS; Start 08/15/19 at 14:30; Status UNV Sodium Chloride 1,000 ml @ 25 mls/hr Q24H IV ; Start 08/15/19 at 14:30; Status UNV Hydromorphone HCl 30 ml @ 0 mls/hr CONT PRN PRN IV PER PROTOCOL Last administered on 08/20/19at 16:08; Start 08/15/19 at 14:30; Stop 08/22/19 at 08:55; Status DC Potassium Acetate 55 meq/Magnesium Sulfate 20 meq/ Calcium Gluconate 10 meq/ Multivitamins 10 ml/Chromium/ Copper/Manganese/ Seleni/Zn 0.5 ml/ Insulin Human Regular 35 unit/ Total Parenteral Nutrition/Amino Acids/Dextrose/ Fat Emulsion Intravenous 1,920 ml @ 80 mls/hr TPN CONT IV Last administered on 08/15/19at 22:01; Start 08/15/19 at 22:00; Stop 08/16/19 at 21:59; Status DC Bumetanide (Bumex) 2 mg [id number] IV Last administered on 08/19/19at 13:50; Start 08/16/19 at 14:00; Stop 08/20/19 at 14:10; Status DC Meropenem 1 gm/ Sodium Chloride 100 ml @ 200 mls/hr Q8HRS IV Last administered on 09/09/19at 05:53; Start 08/16/19 at 14:00; Stop 09/09/19 at 09:31; Status DC Potassium Acetate 55 meq/Magnesium Sulfate 20 meq/ Calcium Gluconate 10 meq/ Multivitamins 10 ml/Chromium/ Copper/Manganese/ Seleni/Zn 0.5 ml/ Insulin Human Regular 35 unit/ Total Parenteral Nutrition/Amino Acids/Dextrose/ Fat Emulsion Intravenous 1,920 ml @ 80 mls/hr TPN CONT IV Last administered on 08/16/19at 22:02; Start 08/16/19 at 22:00; Stop 08/17/19 at 21:59; Status DC Hydromorphone HCl (Dilaudid Standard [employer]) 12 mg STK-MED ONCE IV ; Start 08/15/19 at 14:35; Stop 08/16/19 at 13:53; Status DC Artificial Tears (Artificial Tears) 1 drop PRN Q15MIN PRN OU DRY EYE Last administered on 09/16/19at 10:08; Start 08/17/19 at 05:30 Hydromorphone HCl (Dilaudid Standard [employer]) 12 mg STK-MED ONCE IV ; Start 08/16/19 at 12:05; Stop 08/17/19 at 09:15; Status DC Potassium Acetate 65 meq/Magnesium Sulfate 20 meq/ Calcium Gluconate 10 meq/ Multivitamins 10 ml/Chromium/ Copper/Manganese/ Seleni/Zn 0.5 ml/ Insulin Human Regular 30 unit/ Total Parenteral Nutrition/Amino Acids/Dextrose/ Fat Emulsion Intravenous 1,920 ml @ 80 mls/hr TPN CONT IV Last administered on 08/17/19at 22:22; Start 08/17/19 at 22:00; Stop 08/18/19 at 21:59; Status DC Cyclobenzaprine HCl (Flexeril) 10 mg PRN Q6HRS PRN PO MUSCLE SPASMS; Start 08/18/19 at 10:45 Potassium Acetate 55 meq/Magnesium Sulfate 20 meq/ Calcium Gluconate 10 meq/ Multivitamins 10 ml/Chromium/ Copper/Manganese/ Seleni/Zn 0.5 ml/ Insulin Human Regular 30 unit/ Total Parenteral Nutrition/Amino Acids/Dextrose/ Fat Emulsion Intravenous 1,920 ml @ 80 mls/hr TPN CONT IV Last administered on 08/19/19at 01:00; Start 08/18/19 at 22:00; Stop 08/19/19 at 21:59; Status DC Magnesium Sulfate 50 ml @ 25 mls/hr 1X ONCE IV Last administered on 08/18/19at 17:18; Start 08/18/19 at 12:45; Stop 08/18/19 at 14:44; Status DC Potassium Chloride/Water 100 ml @ 100 mls/hr 1X ONCE IV Last administered on 08/19/19at 11:27; Start 08/19/19 at 12:00; Stop 08/19/19 at 12:59; Status DC Hydromorphone HCl (Dilaudid Standard [employer]) 12 mg STK-MED ONCE IV ; Start 08/17/19 at 10:50; Stop 08/19/19 at 11:02; Status DC Hydromorphone HCl (Dilaudid Standard [employer]) 12 mg STK-MED ONCE IV ; Start 08/18/19 at 13:47; Stop 08/19/19 at 11:03; Status DC Potassium Acetate 30 meq/Magnesium Sulfate 20 meq/ Calcium Gluconate 10 meq/ Multivitamins 10 ml/Chromium/ Copper/Manganese/ Seleni/Zn 0.5 ml/ Insulin Human Regular 30 unit/ Potassium Chloride 30 meq/ Total Parenteral Nutrition/Amino A cids/Dextrose/ Fat Emulsion Intravenous 1,920 ml @ 80 mls/hr TPN CONT IV Last administered on 08/19/19at 22:34; Start 08/19/19 at 22:00; Stop 08/20/19 at 21:59; Status DC Potassium Chloride/Water 100 ml @ 100 mls/hr Q1H IV Last administered on 08/20/19at 13:05; Start 08/20/19 at 07:00; Stop 08/20/19 at 10:59; Status DC Magnesium Sulfate 50 ml @ 25 mls/hr 1X ONCE IV Last administered on 08/20/19at 10:34; Start 08/20/19 at 10:30; Stop 08/20/19 at 12:29; Status DC Potassium Chloride 75 meq/ Magnesium Sulfate 20 meq/Calcium Gluconate 10 meq/ Multivitamins 10 ml/Chromium/ Copper/Manganese/ Seleni/Zn 0.5 ml/ Insulin Human Regular 30 unit/ Total Parenteral Nutrition/Amino Acids/Dextrose/ Fat Emulsion Intravenous 1,920 ml @ 80 mls/hr TPN CONT IV Last administered on 08/20/19at 21:51; Start 08/20/19 at 22:00; Stop 08/21/19 at 22:00; Status DC Potassium Chloride 75 meq/ Magnesium Sulfate 20 meq/Calcium Gluconate 10 meq/ Multivitamins 10 ml/Chromium/ Copper/Manganese/ Seleni/Zn 0.5 ml/ Insulin Human Regular 25 unit/ Total Parenteral Nutrition/Amino Acids/Dextrose/ Fat Emulsion Intravenous 1,920 ml @ 80 mls/hr TPN CONT IV Last administered on 08/21/19at 22:04; Start 08/21/19 at 22:00; Stop 08/22/19 at 21:59; Status DC Hydromorphone HCl (Dilaudid) 0.4 mg PRN Q4HRS PRN IVP PAIN Last administered on 08/22/19at 10:57; Start 08/22/19 at 09:00; Stop 08/22/19 at 18:59; Status DC Micafungin Sodium 100 mg/Dextrose 100 ml @ 100 mls/hr Q24H IV Last administered on 09/13/19at 12:17; Start 08/22/19 at 11:00; Stop 09/14/19 at 09:59; Status DC Daptomycin 485 mg/ Sodium Chloride 50 ml @ 100 mls/hr Q24H IV Last administered on 08/29/19at 13:10; Start 08/22/19 at 11:00; Stop 08/30/19 at 07:44; Status DC Potassium Chloride 75 meq/ Magnesium Sulfate 15 meq/Calcium Gluconate 8 meq/ Multivitamins 10 ml/Chromium/ Copper/Manganese/ Seleni/Zn 0.5 ml/ Insulin Human Regular 25 unit/ Total Parenteral Nutrition/Amino Acids/Dextrose/ Fat Emulsion Intravenous 1,920 ml @ 80 mls/hr TPN CONT IV Last administered on 08/22/19at 23:08; Start 08/22/19 at 22:00; Stop 08/23/19 at 21:59; Status DC Haloperidol Lactate (Haldol Inj) 3 mg 1X ONCE IVP Last administered on 08/22/19at 14:37; Start 08/22/19 at 14:30; Stop 08/22/19 at 14:31; Status DC Hydromorphone HCl (Dilaudid) 1 mg PRN Q4HRS PRN IVP PAIN Last administered on 09/05/19at 06:25; Start 08/22/19 at 19:00; Stop 09/05/19 at 17:10; Status DC Potassium Chloride 75 meq/ Magnesium Sulfate 15 meq/Calcium Gluconate 8 meq/ Multivitamins 10 ml/Chromium/ Copper/Manganese/ Seleni/Zn 0.5 ml/ Insulin Human Regular 20 unit/ Total Parenteral Nutrition/Amino Acids/Dextrose/ Fat Emulsion Intravenous 1,920 ml @ 80 mls/hr TPN CONT IV Last administered on 08/23/19at 22:10; Start 08/23/19 at 22:00; Stop 08/24/19 at 21:59; Status DC Lidocaine HCl (Buffered Lidocaine 1%) 3 ml STK-MED ONCE .ROUTE ; Start 08/24/19 at 11:31; Stop 08/24/19 at 11:31; Status DC Lidocaine HCl (Buffered Lidocaine 1%) 3 ml STK-MED ONCE .ROUTE ; Start 08/24/19 at 12:28; Stop 08/24/19 at 12:29; Status DC Lidocaine HCl (Buffered Lidocaine 1%) 6 ml 1X ONCE INJ Last administered on 08/24/19at 12:53; Start 08/24/19 at 12:45; Stop 08/24/19 at 12:46; Status DC Potassium Chloride 75 meq/ Magnesium Sulfate 15 meq/Calcium Gluconate 8 meq/ Multivitamins 10 ml/Chromium/ Copper/Manganese/ Seleni/Zn 0.5 ml/ Insulin Human Regular 20 unit/ Total Parenteral Nutrition/Amino Acids/Dextrose/ Fat Emulsion Intravenous 1,920 ml @ 80 mls/hr TPN CONT IV Last administered on 08/24/19at 22:00; Start 08/24/19 at 22:00; Stop 08/25/19 at 21:59; Status DC Potassium Chloride 75 meq/ Magnesium Sulfate 15 meq/Calcium Gluconate 8 meq/ Multivitamins 10 ml/Chromium/ Copper/Manganese/ Seleni/Zn 0.5 ml/ Insulin Human Regular 15 unit/ Total Parenteral Nutrition/Amino Acids/Dextrose/ Fat Emulsion Intravenous 1,920 ml @ 80 mls/hr TPN CONT IV Last administered on 08/25/19at 22:28; Start 08/25/19 at 22:00; Stop 08/26/19 at 21:59; Status DC Vecuronium [place] (Norcuron Bolus) 6 mg PRN Q6HRS PRN IV VENT ASYNCHRONY; Start 08/25/19 at 19:15; Stop 08/25/19 at 19:35; Status DC Bumetanide (Bumex) 2 mg 1X ONCE IV Last administered on 08/25/19at 22:09; Start 08/25/19 at 19:45; Stop 08/25/19 at 19:46; Status DC Lidocaine HCl (Buffered Lidocaine 1%) 3 ml STK-MED ONCE .ROUTE ; Start 08/26/19 at 07:59; Stop 08/26/19 at 07:59; Status DC Midazolam HCl (Versed) 5 mg STK-MED ONCE .ROUTE ; Start 08/26/19 at 08:36; Stop 08/26/19 at 08:36; Status DC Fentanyl Citrate (Fentanyl 5ml Vial) 250 mcg STK-MED ONCE .ROUTE ; Start 08/26/19 at 08:36; Stop 08/26/19 at 08:37; Status DC Lidocaine HCl (Buffered Lidocaine 1%) 3 ml 1X ONCE IJ Last administered on 08/26/19at 09:30; Start 08/26/19 at 09:15; Stop 08/26/19 at 09:16; Status DC Midazolam HCl (Versed) 5 mg 1X ONCE IV Last administered on 08/26/19at 09:30; Start 08/26/19 at 09:15; Stop 08/26/19 at 09:16; Status DC Fentanyl Citrate (Fentanyl 5ml Vial) 250 mcg 1X ONCE IV Last administered on 08/26/19at 09:30; Start 08/26/19 at 09:15; Stop 08/26/19 at 09:16; Status DC Bumetanide (Bumex) 2 mg DAILY IV Last administered on 09/05/19at 08:07; Start 08/26/19 at 10:00; Stop 09/05/19 at 17:15; Status DC Potassium Chloride 75 meq/ Magnesium Sulfate 15 meq/ Multivitamins 10 ml/Chromium/ Copper/Manganese/ Seleni/Zn 0.5 ml/ Insulin Human Regular 15 unit/ Total Parenteral Nutrition/Amino Acids/Dextrose/ Fat Emulsion Intravenous 1,920 ml @ 80 mls/hr TPN CONT IV Last administered on 08/26/19at 21:59; Start 08/26/19 at 22:00; Stop 08/27/19 at 21:59; Status DC Metoclopramide HCl (Reglan Vial) 10 mg PRN Q3HRS PRN IVP NAUSEA/VOMITING-3rd choice Last administered on 09/01/19at 04:25; Start 08/27/19 at 16:45 Potassium Chloride 75 meq/ Magnesium Sulfate 15 meq/ Multivitamins 10 ml/Chromium/ Copper/Manganese/ Seleni/Zn 0.5 ml/ Insulin Human Regular 15 unit/ Total Parenteral Nutrition/Amino Acids/Dextrose/ Fat Emulsion Intravenous 1,920 ml @ 80 mls/hr TPN CONT IV Last administered on 08/27/19at 22:41; Start 08/27/19 at 22:00; Stop 08/28/19 at 21:59; Status DC Magnesium Sulfate 50 ml @ 25 mls/hr 1X ONCE IV Last administered on 08/28/19at 10:44; Start 08/28/19 at 09:00; Stop 08/28/19 at 10:59; Status DC Potassium Chloride/Water 100 ml @ 100 mls/hr 1X ONCE IV Last administered on 08/28/19at 09:37; Start 08/28/19 at 09:00; Stop 08/28/19 at 09:59; Status DC Duloxetine HCl (Cymbalta) 30 mg DAILY PO Last administered on 08/29/19at 09:48; Start 08/28/19 at 14:00; Stop 08/31/19 at 10:25; Status DC Potassium Chloride 80 meq/ Magnesium Sulfate 20 meq/ Multivitamins 10 ml/Chromium/ Copper/Manganese/ Seleni/Zn 0.5 ml/ Insulin Human Regular 15 unit/ Total Parenteral Nutrition/Amino Acids/Dextrose/ Fat Emulsion Intravenous 1,920 ml @ 80 mls/hr TPN CONT IV Last administered on 08/28/19at 21:42; Start 08/28/19 at 22:00; Stop 08/29/19 at 21:59; Status DC Potassium Chloride 80 meq/ Magnesium Sulfate 20 meq/ Multivitamins 10 ml/Chromium/ Copper/Manganese/ Seleni/Zn 0.5 ml/ Insulin Human Regular 15 unit/ Total Parenteral Nutrition/Amino Acids/Dextrose/ Fat Emulsion Intravenous 1,920 ml @ 80 mls/hr TPN CONT IV Last administered on 08/29/19at 22:20; Start 08/29/19 at 22:00; Stop 08/30/19 at 21:59; Status DC Lidocaine HCl (Buffered Lidocaine 1%) 3 ml STK-MED ONCE .ROUTE ; Start 08/30/19 at 09:54; Stop 08/30/19 at 09:55; Status DC Hydromorphone HCl (Dilaudid Standard [employer]) 12 mg STK-MED ONCE IV ; Start 08/19/19 at 15:50; Stop 08/30/19 at 11:24; Status DC Potassium Chloride 80 meq/ Magnesium Sulfate 20 meq/ Multivitamins 10 ml/Chromium/ Copper/Manganese/ Seleni/Zn 0.5 ml/ Insulin Human Regular 15 unit/ Total Parenteral Nutrition/Amino Acids/Dextrose/ Fat Emulsion Intravenous 1,920 ml @ 80 mls/hr TPN CONT IV Last administered on 08/30/19at 21:40; Start 08/30/19 at 22:00; Stop 08/31/19 at 21:59; Status DC Lidocaine HCl (Buffered Lidocaine 1%) 6 ml 1X ONCE INJ Last administered on 08/30/19at 14:15; Start 08/30/19 at 14:15; Stop 08/30/19 at 14:16; Status DC Potassium Chloride 80 meq/ Magnesium Sulfate 20 meq/ Multivitamins 10 ml/Chromium/ Copper/Manganese/ Seleni/Zn 1 ml/ Insulin Human Regular 15 unit/ Total Parenteral Nutrition/Amino Acids/Dextrose/ Fat Emulsion Intravenous 1,920 ml @ 80 mls/hr TPN CONT IV Last administered on 08/31/19at 22:04; Start 08/31/19 at 22:00; Stop 09/01/19 at 21:59; Status DC Potassium Chloride/Water 100 ml @ 100 mls/hr 1X ONCE IV Last administered on 09/01/19at 11:34; Start 09/01/19 at 11:00; Stop 09/01/19 at 11:59; Status DC Potassium Chloride 90 meq/ Magnesium Sulfate 20 meq/ Multivitamins 10 ml/Chromium/ Copper/Manganese/ Seleni/Zn 1 ml/ Insulin Human Regular 15 unit/ Total Parenteral Nutrition/Amino Acids/Dextrose/ Fat Emulsion Intravenous 1,920 ml @ 80 mls/hr TPN CONT IV Last administered on 09/01/19at 22:57; Start 09/01/19 at 22:00; Stop 09/02/19 at 21:59; Status DC Potassium Chloride 90 meq/ Magnesium Sulfate 20 meq/ Multivitamins 10 ml/ Chromium/ Copper/Manganese/ Seleni/Zn 1 ml/ Insulin Human Regular 15 unit/ Total Parenteral Nutrition/Amino Acids/Dextrose/ Fat Emulsion Intravenous 1,920 ml @ 80 mls/hr TPN CONT IV Last administered on 09/02/19at 22:48; Start 09/02/19 at 22:00; Stop 09/03/19 at 21:59; Status DC Potassium Chloride 90 meq/ Magnesium Sulfate 20 meq/ Multivitamins 10 ml/Chromium/ Copper/Manganese/ Seleni/Zn 1 ml/ Insulin Human Regular 15 unit/ Total Parenteral Nutrition/Amino Acids/Dextrose/ Fat Emulsion Intravenous 1,890 ml @ 78.75 mls/ hr TPN CONT IV Last administered on 09/03/19at 22:15; Start 09/03/19 at 22:00; Stop 09/04/19 at 21:59; Status DC Linezolid/Dextrose 300 ml @ 300 mls/hr Q12HR IV Last administered on 09/06/19at 21:08; Start 09/04/19 at 09:00; Stop 09/07/19 at 08:11; Status DC Daptomycin 450 mg/ Sodium Chloride 50 ml @ 100 mls/hr Q24H IV Last administered on 09/07/19at 09:25; Start 09/04/19 at 09:00; Stop 09/08/19 at 08:30; Status DC Potassium Chloride 90 meq/ Magnesium Sulfate 20 meq/ Multivitamins 10 m l/Chromium/ Copper/Manganese/ Seleni/Zn 1 ml/ Insulin Human Regular 15 unit/ Total Parenteral Nutrition/Amino Acids/Dextrose/ Fat Emulsion Intravenous 1,890 ml @ 78.75 mls/ hr TPN CONT IV Last administered on 09/04/19at 21:34; Start 09/04/19 at 22:00; Stop 09/05/19 at 21:59; Status DC Lorazepam (Ativan Inj) 2 mg STK-MED ONCE .ROUTE ; Start 09/04/19 at 14:58; Stop 09/04/19 at 14:58; Status DC Metoprolol Tartrate (Lopressor Vial) 5 mg 1X ONCE IVP Last administered on 09/04/19at 15:31; Start 09/04/19 at 15:15; Stop 09/04/19 at 15:16; Status DC Lorazepam (Ativan Inj) 2 mg 1X ONCE IVP Last administered on 09/04/19at 15:30; Start 09/04/19 at 15:15; Stop 09/04/19 at 15:16; Status DC Enoxaparin Sodium (Lovenox 40mg Syringe) 40 mg Q24H SQ Last administered on 09/23/19at 17:44; Start 09/04/19 at 17:00; Stop 09/25/19 at 06:50; Status DC Lorazepam (Ativan Inj) 1 mg PRN Q4HRS PRN IVP ANXIETY / AGITATION MILD-MOD Last administered on 09/18/19at 15:55; Start 09/04/19 at 19:15; Stop 09/20/19 at 11:45; Status DC Lorazepam (Ativan Inj) 2 mg PRN Q4HRS PRN IVP ANXIETY / AGITATION SEVERE Last administered on 09/19/19at 07:55; Start 09/04/19 at 19:15; Stop 09/20/19 at 11:45; Status DC Fentanyl Citrate (Fentanyl 2ml Vial) 50 mcg PRN Q4HRS PRN IVP SEVERE PAIN Last administered on 09/27/19at 04:40; Start 09/05/19 at 13:15 Fentanyl Citrate (Fentanyl 2ml Vial) 25 mcg PRN Q4HRS PRN IVP MODERATE PAIN Last administered on 09/29/19at 03:19; Start 09/05/19 at 13:15 Potassium Chloride 90 meq/ Magnesium Sulfate 20 meq/ Multivitamins 10 ml/ Chromium/ Copper/Manganese/ Seleni/Zn 1 ml/ Insulin Human Regular 15 unit/ Total Parenteral Nutrition/Amino Acids/Dextrose/ Fat Emulsion Intravenous 1,890 ml @ 78.75 mls/ hr TPN CONT IV Last administered on 09/05/19at 22:18; Start 09/05/19 at 22:00; Stop 09/06/19 at 21:59; Status DC Furosemide (Lasix) 40 mg 1X ONCE IVP Last administered on 09/05/19at 21:51; Start 09/05/19 at 21:45; Stop 09/05/19 at 21:48; Status DC Albumin Human 100 ml @ 100 mls/hr 1X PRN PRN IV SEE COMMENTS; Start 09/06/19 at 01:30 Furosemide (Lasix) 40 mg [id number] IVP Last administered on 09/21/19at 08:04; Start 09/06/19 at 14:00; Stop 09/21/19 at 13:07; Status DC Potassium Chloride 90 meq/ Magnesium Sulfate 20 meq/ Multivitamins 10 ml/Chromium/ Copper/Manganese/ Seleni/Zn 1 ml/ Insulin Human Regular 15 unit/ Total Parenteral Nutrition/Amino Acids/Dextrose/ Fat Emulsion Intravenous 1,800 ml @ 75 mls/hr TPN CONT IV Last administered on 09/06/19at 22:31; Start 09/06/19 at 22:00; Stop 09/07/19 at 21:59; Status DC Potassium Chloride 90 meq/ Magnesium Sulfate 20 meq/ Multivitamins 10 ml/Chromium/ Copper/Manganese/ Seleni/Zn 1 ml/ Insulin Human Regular 15 unit/ Total Parenteral Nutrition/Amino Acids/Dextrose/ Fat Emulsion Intravenous 1,800 ml @ 75 mls/hr TPN CONT IV Last administered on 09/07/19at 22:28; Start 09/07/19 at 22:00; Stop 09/08/19 at 21:59; Status DC Potassium Chloride 110 meq/ Magnesium Sulfate 20 meq/ Multivitamins 10 ml/Chromium/ Copper/Manganese/ Seleni/Zn 1 ml/ Insulin Human Regular 15 unit/ Total Parenteral Nutrition/Amino Acids/Dextrose/ Fat Emulsion Intravenous 1,800 ml @ 75 mls/hr TPN CONT IV Last administered on 09/08/19at 22:01; Start 09/07 at 22:00; Stop 09/09/19 at 21:59; Status DC Saliva Substitute (Biotene Moisturizing Mouth) 2 spray PRN Q15MIN PRN PO DRY M OUTH; Start 09/08/19 at 11:00 Potassium Chloride 110 meq/ Magnesium Sulfate 20 meq/ Multivitamins 10 ml/Chromium/ Copper/Manganese/ Seleni/Zn 1 ml/ Insulin Human Regular 15 unit/ Total Parenteral Nutrition/Amino Acids/Dextrose/ Fat Emulsion Intravenous 1,800 ml @ 75 mls/hr TPN CONT IV Last administered on 09/09/19at 22:21; Start 09/09/19 at 22:00; Stop 09/10/19 at 21:59; Status DC Potassium Chloride 110 meq/ Magnesium Sulfate 20 meq/ Multivitamins 10 ml/Chromium/ Copper/Manganese/ Seleni/Zn 1 ml/ Insulin Human Regular 15 unit/ Total Parenteral Nutrition/Amino Acids/Dextrose/ Fat Emulsion Intravenous 1,800 ml @ 75 mls/hr TPN CONT IV Last administered on 09/10/19at 22:04; Start 09/10/19 at 22:00; Stop 09/11/19 at 21:59; Status DC Potassium Chloride 110 meq/ Magnesium Sulfate 20 meq/ Multivitamins 10 ml/Chromium/ Copper/Manganese/ Seleni/Zn 1 ml/ Insulin Human Regular 15 unit/ Total Parenteral Nutrition/Amino Acids/Dextrose/ Fat Emulsion Intravenous 1,800 ml @ 75 mls/hr TPN CONT IV Last administered on 09/11/19at 22:48; Start 09/11/19 at 22:00; Stop 09/12/19 at 21:59; Status DC Potassium Chloride 70 meq/ Magnesium Sulfate 20 meq/ Multivitamins 10 ml/Chromium/ Copper/Manganese/ Seleni/Zn 1 ml/ Insulin Human Regular 15 unit/ Total Parenteral Nutrition/Amino Acids/Dextrose/ Fat Emulsion Intravenous 1,800 ml @ 75 mls/hr TPN CONT IV Last administered on 09/12/19at 21:39; Start 09/11 at 22:00; Stop 09/13/19 at 21:59; Status DC Meropenem 500 mg/ Sodium Chloride 50 ml @ 100 mls/hr Q6HRS IV Last administer ed on 09/14/19at 06:02; Start 09/12/19 at 18:00; Stop 09/14/19 at 09:59; Status DC Barium Sulfate (Varibar Thin Liquid Apple) 148 gm 1X ONCE PO ; Start 09/13/19 at 11:45; Stop 09/13/19 at 11:49; Status DC Potassium Chloride 70 meq/ Magnesium Sulfate 20 meq/ Multivitamins 10 ml/Chromium/ Copper/Manganese/ Seleni/Zn 1 ml/ Insulin Human Regular 15 unit/ Total Parenteral Nutrition/Amino Acids/Dextrose/ Fat Emulsion Intravenous 1,800 ml @ 75 mls/hr TPN CONT IV Last administered on 09/13/19at 22:27; Start at 22:00; Stop 09/14/19 at 21:59; Status DC Piperacillin Sod/ Tazobactam Sod 3.375 gm/Sodium Chloride 50 ml @ 100 mls/hr Q6HRS IV Last administered on 09/22/19at 06:10; Start 09/14/19 at 12:00; Stop 09/22/19 at 07:26; Status DC Potassium Chloride 70 meq/ Magnesium Sulfate 20 meq/ Multivitamins 10 ml/Chromium/ Copper/Manganese/ Seleni/Zn 1 ml/ Insulin Human Regular 15 unit/ T otal Parenteral Nutrition/Amino Acids/Dextrose/ Fat Emulsion Intravenous 1,800 ml @ 75 mls/hr TPN CONT IV Last administered on 09/14/19at 22:03; Start 09/14/19 at 22:00; Stop 09/15/19 at 21:59; Status DC Potassium Chloride 70 meq/ Magnesium Sulfate 20 meq/ Multivitamins 10 ml/Chromium/ Copper/Manganese/ Seleni/Zn 1 ml/ Insulin Human Regular 15 unit/ Total Parenteral Nutrition/Amino Acids/Dextrose/ Fat Emulsion Intravenous 1,800 ml @ 75 mls/hr TPN CONT IV Last administered on 09/15/19at 22:33; Start at 22:00; Stop 09/16/19 at 21:59; Status DC Potassium Chloride 70 meq/ Magnesium Sulfate 20 meq/ Multivitamins 10 ml/Log Chain Feeder mium/ Copper/Manganese/ Seleni/Zn 1 ml/ Insulin Human Regular 15 unit/ Total Parenteral Nutrition/Amino Acids/Dextrose/ Fat Emulsion Intravenous 1,800 ml @ 75 mls/hr TPN CONT IV Last administered on 09/16/19at 23:13; Start 09/16/19 at 22:00; Stop 09/17/19 at 21:59; Status DC Potassium Chloride 80 meq/ Magnesium Sulfate 20 meq/ Multivitamins 10 ml/Chromium/ Copper/Manganese/ Seleni/Zn 1 ml/ Insulin Human Regular 15 unit/ Total Parenteral Nutrition/Amino Acids/Dextrose/ Fat Emulsion Intravenous 1,800 ml @ 75 mls/hr TPN CONT IV Last administered on 09/17/19at 22:30; Start 09/17/19 at 22:00; Stop 09/18/19 at 21:59; Status DC Potassium Chloride 80 meq/ Magnesium Sulfate 20 meq/ Multivitamins 10 ml/Chromium/ Copper/Manganese/ Seleni/Zn 1 ml/ Insulin Human Regular 15 unit/ Total Parenteral Nutrition/Amino Acids/Dextrose/ Fat Emulsion Intravenous 1,800 ml @ 75 mls/hr TPN CONT IV Last administered on 09/18/19at 21:54; Start 09/18/19 at 22:00; Stop 09/19/19 at 21:59; Status DC Potassium Chloride/Water 100 ml @ 100 mls/hr 1X ONCE IV Last administered on 09/19/19at 10:15; Start 09/19/19 at 10:00; Stop 09/19/19 at 10:59; Status DC Potassium Chloride 90 meq/ Magnesium Sulfate 20 meq/ Multivitamins 10 ml/Chromium/ Copper/Manganese/ Seleni/Zn 1 ml/ Insulin Human Regular 20 unit/ Total Parenteral Nutrition/Amino Acids/Dextrose/ Fat Emulsion Intravenous 1,800 ml @ 75 mls/hr TPN CONT IV Last administered on 09/19/19at 22:28; Start 09/19/19 at 22:00; Stop 09/20/19 at 21:59; Status DC Potassium Chloride 90 meq/ Magnesium Sulfate 20 meq/ Multivitamins 10 ml/Chromium/ Copper/Manganese/ Seleni/Zn 1 ml/ Insulin Human Regular 20 unit/ Total Parenteral Nutrition/Amino Acids/Dextrose/ Fat Emulsion Intravenous 1,800 ml @ 75 mls/hr TPN CONT IV Last administered on 09/20/19at 22:08; Start 09/20/19 at 22:00; Stop 09/21/19 at 21:59; Status DC Lorazepam (Ativan Inj) 0.25 mg PRN Q4HRS PRN IVP ANXIETY / AGITATION Last administered on 09/29/19at 05:53; Start 09/21/19 at 07:30 Potassium Chloride 90 meq/ Magnesium Sulfate 20 meq/ Multivitamins 10 ml/Chromium/ Copper/Manganese/ Seleni/Zn 1 ml/ Insulin Human Regular 20 unit/ Total Parenteral Nutrition/Amino Acids/Dextrose/ Fat Emulsion Intravenous 1,800 ml @ 75 mls/hr TPN CONT IV Last administered on 09/21/19at 23:13; Start 09/21/19 at 22:00; Stop 09/22/19 at 21:59; Status DC Furosemide (Lasix) 40 mg DAILY IVP Last administered on 09/23/19at 11:14; Start 09/21/19 at 13:30; Stop 09/25/19 at 09:12; Status DC Fluoxetine HCl (PROzac) 20 mg QHS PEG Last administered on 09/28/19at 21:26; Start 09/22/19 at 21:00 Fentanyl (Duragesic 50mcg/ Hr Patch) 1 patch Q72H TD Last administered on 09/22/19at 21:22; Start 09/22/19 at 21:00 Potassium Chloride 40 meq/ Potassium Acetate 60 meq/Magnesium Sulfate 10 meq/ Multivitamins 10 ml/Chromium/ Copper/Manganese/ Seleni/Zn 1 ml/ Insulin Human Regular 20 unit/ Total Parenteral Nutrition/Amino Acids/Dextrose/ Fat Emulsion Intravenous 1,800 ml @ 75 mls/hr TPN CONT IV Last administered on 09/23/19at 00:03; Start 09/22/19 at 22:00; Stop 09/23/19 at 21:59; Status DC Potassium Acetate 80 meq/Magnesium Sulfate 5 meq/ Multivitamins 10 ml/Chromium/ Copper/Manganese/ Seleni/Zn 1 ml/ Insulin Human Regular 20 unit/ Total Parenteral Nutrition/Amino Acids/Dextrose/ Fat Emulsion Intravenous 1,920 ml @ 80 mls/hr TPN CONT IV Last administered on 09/23/19at 21:59; Start 09/23/19 at 22:00; Stop 09/24/19 at 21:59; Status DC Potassium Acetate 60 meq/Magnesium Sulfate 5 meq/ Multivitamins 10 ml/Chromium/ Copper/Manganese/ Seleni/Zn 1 ml/ Insulin Human Regular 30 unit/ Total Parenteral Nutrition/Amino Acids/Dextrose/ Fat Emulsion Intravenous 1,920 ml @ 80 mls/hr TPN CONT IV Last administered on 09/24/19at 21:54; Start 09/24/19 at 22:00; Stop 09/25/19 at 21:59; Status DC Norepinephrine Bitartrate 8 mg/ Dextrose 258 ml @ 13.332 mls/ hr CONT PRN IV PER PROTOCOL Last administered on 09/25/19at 21:46; Start 09/25/19 at 06:30 Albumin Human 500 ml @ 125 mls/hr 1X ONCE IV Last administered on 09/25/19at 08:10; Start 09/25/19 at 08:15; Stop 09/25/19 at 12:14; Status DC Potassium Acetate 40 meq/Magnesium Sulfate 5 meq/ Multivitamins 10 ml/Chromium/ Copper/Manganese/ Seleni/Zn 1 ml/ Insulin Human Regular 30 unit/ Total Parenteral Nutrition/Amino Acids/Dextrose/ Fat Emulsion Intravenous 1,920 ml @ 80 mls/hr TPN CONT IV Last administered on 09/25/19at 22:23; Start 09/25/19 at 22:00; Stop 09/26/19 at 21:59; Status DC Meropenem 1 gm/ Sodium Chloride 100 ml @ 200 mls/hr Q8HRS IV ; Start 09/25/19 at 14:00; Status Cancel Meropenem 1 gm/ Sodium Chloride 100 ml @ 200 mls/hr Q8HRS IV Last administered on 09/25/19at 11:04; Start 09/25/19 at 10:00; Stop 09/25/19 at 13:00; Status DC Meropenem 1 gm/ Sodium Chloride 100 ml @ 200 mls/hr Q12HR IV Last administered on 09/28/19at 21:26; Start 09/25/19 at 21:00 Sodium Chloride 1,000 ml @ 1,000 mls/hr 1X ONCE IV Last administered on 09/25/19at 11:06; Start 09/25/19 at 10:45; Stop 09/25/19 at 11:44; Status DC Micafungin Sodium 100 mg/Dextrose 100 ml @ 100 mls/hr Q24H IV Last administered on 09/28/19at 12:09; Start 09/25/19 at 11:00 Daptomycin 410 mg/ Sodium Chloride 50 ml @ 100 mls/hr Q24H IV Last administered on 09/27/19at 13:33; Start 09/25/19 at 14:00; Stop 09/28/19 at 08:30; Status DC Midazolam HCl (Versed) 2 mg STK-MED ONCE .ROUTE ; Start 09/25/19 at 14:47; Stop 09/25/19 at 14:48; Status DC Fentanyl Citrate (Fentanyl 2ml Vial) 100 mcg STK-MED ONCE .ROUTE ; Start 09/25/19 at 14:47; Stop 09/25/19 at 14:48; Status DC Flumazenil (Romazicon) 0.5 mg STK-MED ONCE IV ; Start 09/25/19 at 14:48; Stop 09/25/19 at 14:48; Status DC Naloxone HCl (Narcan) 0.4 mg STK-MED ONCE .ROUTE ; Start 09/25/19 at 14:48; Stop 09/25/19 at 14:48; Status DC Lidocaine HCl (Lidocaine 1% 20ml Vial) 20 ml STK-MED ONCE .ROUTE ; Start 09/25/19 at 14:48; Stop 09/25/19 at 14:48; Status DC Midazolam HCl (Versed) 2 mg 1X ONCE IV Last administered on 09/25/19at 15:28; Start 09/25/19 at 15:00; Stop 09/25/19 at 15:01; Status DC Fentanyl Citrate (Fentanyl 2ml Vial) 100 mcg 1X ONCE IV Last administered on 09/25/19at 15:28; Start 09/25/19 at 15:00; Stop 09/25/19 at 15:01; Status DC Lidocaine HCl (Lidocaine 1% 20ml Vial) 20 ml 1X ONCE INJ Last administered on 09/25/19at 15:30; Start 09/25/19 at 15:00; Stop 09/25/19 at 15:01; Status DC Sodium Chloride 1,000 ml @ 100 mls/hr Q10H IV Last administered on 09/29/19at 02:13; Start 09/25/19 at 20:00 Sodium Bicarbonate (Sodium Bicarb Adult 8.4% Syr) 50 meq 1X ONCE IV Last administered on 09/25/19at 21:47; Start 09/25/19 at 22:00; Stop 09/25/19 at 22:01; Status DC Potassium Acetate 40 meq/Magnesium Sulfate 5 meq/ Multivitamins 10 ml/Chromium/ Copper/Manganese/ Seleni/Zn 1 ml/ Insulin Human Regular 30 unit/ Total Parenteral Nutrition/Amino Acids/Dextrose/ Fat Emulsion Intravenous 1,920 ml @ 80 mls/hr TPN CONT IV Last administered on 09/26/19at 22:28; Start 09/26/19 at 22:00; Stop 09/27/19 at 21:59; Status DC Sodium Chloride 500 ml @ 500 mls/hr 1X ONCE IV Last administered on 09/27/19at 06:39; Start 09/27/19 at 06:45; Stop 09/27/19 at 07:44; Status DC Potassium Acetate 40 meq/Magnesium Sulfate 5 meq/ Multivitamins 10 ml/Chromium/ Copper/Manganese/ Seleni/Zn 1 ml/ Insulin Human Regular 30 unit/ Total Parenteral Nutrition/Amino Acids/Dextrose/ Fat Emulsion Intravenous 1,920 ml @ 80 mls/hr TPN CONT IV Last administered on 09/27/19at 22:03; Start 09/27/19 at 22:00; Stop 09/28/19 at 21:59; Status DC Metoprolol Tartrate (Lopressor Vial) 5 mg PRN Q6HRS PRN IVP HYPERTENSION; Start 09/28/19 at 09:00 Potassium Acetate 40 meq/Magnesium Sulfate 5 meq/ Multivitamins 10 ml/Chromium/ Copper/Manganese/ Seleni/Zn 1 ml/ Insulin Human Regular 30 unit/ Total Parenteral Nutrition/Amino Acids/Dextrose/ Fat Emulsion Intravenous 1,920 ml @ 80 mls/hr TPN CONT IV Last administered on 09/28/19at 21:26; Start 09/28/19 at 22:00; Stop 09/29/19 at 21:59 Active Scripts Active Reported Bisoprolol Fumarate 5 Mg Tablet 10 Mg PO DAILY Vitals/I & O Vital Sign - Last 24 Hours 09/28/19 09/28/19 09/28/19 09/28/19 08:57 09:00 10:00 10:23 Pulse 128 127 Resp 25 25 18 B/P (MAP) 138/68 (91) 129/64 (85) Pulse Ox 99 100 100 98 O2 Delivery Tracheal Collar Tracheal Collar Tracheal Collar Tracheal Collar O2 Flow Rate 10.0 10.0 10.0 09/28/19 09/28/19 09/28/19 09/28/19 10:54 11:00 11:40 12:00 Temp 98.4 98.2 98.4 98.2 Pulse 127 130 126 Resp 25 25 40 40 B/P (MAP) 129/65 (86) 134/72 134/74 (94) Pulse Ox 98 100 100 O2 Delivery Tracheal Collar Tracheal Collar Tracheal Collar O2 Flow Rate 10.0 10.0 09/28/19 09/28/19 09/28/19 09/28/19 12:00 13:00 13:24 14:00 Temp 98.6 98.6 Pulse 124 124 122 Resp 40 25 40 B/P (MAP) 139/76 (97) 141/76 148/78 (101) Pulse Ox 100 100 O2 Delivery Trach Collar Tracheal Collar Tracheal Collar O2 Flow Rate 10.0 10.0 10.0 09/28/19 09/28/19 09/28/19 09/28/19 15:00 16:00 16:00 16:25 Temp 98.2 98.2 Pulse 126 132 Resp 33 40 32 B/P (MAP) 138/78 (98) 158/82 (107) Pulse Ox 100 100 100 O2 Delivery Tracheal Collar Tracheal Collar Trach Collar O2 Flow Rate 10.0 10.0 10.0 09/28/19 09/28/19 09/28/19 09/28/19 16:55 17:00 18:00 19:00 Pulse 120 142 134 Resp 30 50 45 B/P (MAP) 153/74 (100) 207/91 (129) 130/70 (90) Pulse Ox 100 100 100 100 O2 Delivery Tracheal Collar Tracheal Collar Tracheal Collar O2 Flow Rate 10.0 10.0 10.0 10.0 09/28/19 09/28/19 09/28/19 09/28/19 20:00 20:00 21:00 22:00 Temp 100.3 100.3 Pulse 133 134 136 Resp 46 44 48 B/P (MAP) 129/72 (91) 152/78 (102) 127/75 (92) Pulse Ox 99 99 99 O2 Delivery Trach Collar Tracheal Collar Tracheal Collar Tracheal Collar O2 Flow Rate 10.0 10.0 10.0 10.0 09/28/19 09/29/19 09/29/19 09/29/19 23:00 00:00 00:00 01:00 Temp 98.9 98.9 Pulse 134 130 120 Resp 38 42 29 B/P (MAP) 129/64 (85) 128/68 (88) 104/54 (71) Pulse Ox 98 99 99 O2 Delivery Tracheal Collar Tracheal Collar Trach Collar Tracheal Collar O2 Flow Rate 10.0 10.0 10.0 10.0 09/29/19 09/29/19 09/29/19 09/29/19 02:00 03:00 04:00 04:00 Temp 98.1 98.1 Pulse 118 120 124 Resp 30 38 38 B/P (MAP) 119/58 (78) 149/68 (95) 137/62 (87) Pulse Ox 97 99 98 O2 Delivery Tracheal Collar Tracheal Collar Trach Collar Tracheal Collar O2 Flow Rate 10.0 10.0 10.0 10.0 09/29/19 09/29/19 09/29/19 09/29/19 05:00 06:00 07:00 08:00 Temp 98.6 98.6 Pulse 123 138 140 138 Resp 36 58 42 48 B/P (MAP) 145/65 (91) 192/86 (121) 168/78 (108) 155/80 (105) Pulse Ox 99 85 96 97 O2 Delivery Tracheal Collar Tracheal Collar Tracheal Collar Tracheal Collar O2 Flow Rate 10.0 10.0 10.0 10.0 09/29/19 09/29/19 08:00 08:00 B/P (MAP) O2 Delivery Trach Collar O2 Flow Rate 10.0 Intake and Output 09/28/19 09/28/19 09/29/19 15:00 23:00 07:00 Intake Total 400 ml 100 ml 3526 ml Output Total 620 ml 765 ml 1030 ml Balance -220 ml -665 ml 2496 ml Hemodynamically unstable?: No Is patient in severe pain?: No Is NPO status required?: No DAVIN LANDEROS MD Sep 29, 2019 08:50
[2019-09-29] MEDS: PANTOPRAZOLE IV PUSH 40 MG VIAL. IVP SCH (09:22)
[2019-09-29] MEDS: MEROPENEM 1 GM in IV NORMAL SALINE 100ML 100 ML IV SCH ×2 (09:23→23:22)
--- NOTE | 2019-09-29 09:56 | PDOC ---
PULMONARY PROGRESS NOTES Subjective Patient intubated on 07/10 , s/p trach 07/24, transferred back to ICU 09/22 for syncope with collapse developed anemia, blood drainage from RLQ abdomen drain site, and surrounding firmness / developed septic shock 09/24 from abdomen source, required levo 09/24 s/p 3 new drains 09/24 with brown color drainage was place on AVAPS 09/24 post continues to have Dark blood from KAYLIN drains, now Trach sheild 60%, off pressor today Vitals Vital Signs Date Time Temp Pulse Resp B/P (MAP) Pulse Ox O2 Delivery O2 Flow Rate FiO2 09/29/19 09:00 134 42 159/77 (104) 96 Tracheal Collar 10.0 09/29/19 08:00 98.6 98.6 ROS: No Nausea, No Chest Pain, No Abdominal Pain, No Increase Cough General: Alert, No acute distress Lungs: Other (diminshed in bases, Rhonci in LLL) Cardiovascular: S1, S2 Abdomen: Soft, Non-tender, Other (bleeding from Sx. site RLQ and firmness) Extremities: Other (+1 BLE edema) Skin: Warm, Dry Labs Laboratory Tests Test 09/27/19 12:16 09/27/19 18:14 09/27/19 23:54 09/28/19 05:50 Glucose (Fingerstick) 140 mg/dL (70-99) 158 mg/dL (70-99) 116 mg/dL (70-99) White Blood Count 6.8 x10^3/uL (4.0-11.0) Red Blood Count 2.67 x10^6/uL (3.50-5.40) Hemoglobin 7.8 g/dL (12.0-15.5) Hematocrit 24.0 % (36.0-47.0) Mean Corpuscular Volume 90 fL (79-100) Mean Corpuscular Hemoglobin 29 pg (25-35) Mean Corpuscular Hemoglobin Concent 33 g/dL (31-37) Red Cell Distribution Width 18.0 % (11.5-14.5) Platelet Count 279 x10^3/uL (140-400) Neutrophils (%) (Auto) 71 % (31-73) Lymphocytes (%) (Auto) 20 % (24-48) Monocytes (%) (Auto) 7 % (0-9) Eosinophils (%) (Auto) 2 % (0-3) Basophils (%) (Auto) 0 % (0-3) Neutrophils # (Auto) 4.8 x10^3/uL (1.8-7.7) Lymphocytes # (Auto) 1.3 x10^3/uL (1.0-4.8) Monocytes # (Auto) 0.5 x10^3/uL (0.0-1.1) Eosinophils # (Auto) 0.1 x10^3/uL (0.0-0.7) Basophils # (Auto) 0.0 x10^3/uL (0.0-0.2) Sodium Level 147 mmol/L (136-145) Potassium Level 3.9 mmol/L (3.5-5.1) Chloride Level 117 mmol/L (98-107) Carbon Dioxide Level 23 mmol/L (21-32) Anion Gap 7 (6-14) Blood Urea Nitrogen 38 mg/dL (7-20) Creatinine 1.0 mg/dL (0.6-1.0) Estimated GFR (Cockcroft-Gault) 58.9 Glucose Level 164 mg/dL (70-99) Calcium Level 10.0 mg/dL (8.5-10.1) Test 09/28/19 05:54 09/28/19 18:37 09/28/19 23:30 09/29/19 06:02 Glucose (Fingerstick) 152 mg/dL (70-99) 152 mg/dL (70-99) 145 mg/dL (70-99) 167 mg/dL (70-99) Test 09/29/19 06:15 Sodium Level 147 mmol/L (136-145) Potassium Level 4.1 mmol/L (3.5-5.1) Chloride Level 115 mmol/L (98-107) Carbon Dioxide Level 22 mmol/L (21-32) Anion Gap 10 (6-14) Blood Urea Nitrogen 32 mg/dL (7-20) Creatinine 0.9 mg/dL (0.6-1.0) Estimated GFR (Cockcroft-Gault) 66.5 BUN/Creatinine Ratio 36 (6-20) Glucose Level 181 mg/dL (70-99) Calcium Level 9.9 mg/dL (8.5-10.1) Phosphorus Level 4.0 mg/dL (2.6-4.7) Magnesium Level 1.8 mg/dL (1.8-2.4) Total Bilirubin 0.4 mg/dL (0.2-1.0) Aspartate Amino Transf (AST/SGOT) 21 U/L (15-37) Alanine Aminotransferase (ALT/SGPT) 17 U/L (14-59) Alkaline Phosphatase 91 U/L (46-116) Total Protein 5.2 g/dL (6.4-8.2) Albumin 1.3 g/dL (3.4-5.0) Albumin/Globulin Ratio 0.3 (1.0-1.7) Triglycerides Level 203 mg/dL (0-150) Laboratory Tests Test 09/28/19 18:37 09/28/19 23:30 09/29/19 06:02 09/29/19 06:15 Glucose (Fingerstick) 152 mg/dL (70-99) 145 mg/dL (70-99) 167 mg/dL (70-99) Sodium Level 147 mmol/L (136-145) Potassium Level 4.1 mmol/L (3.5-5.1) Chloride Level 115 mmol/L (98-107) Carbon Dioxide Level 22 mmol/L (21-32) Anion Gap 10 (6-14) Blood Urea Nitrogen 32 mg/dL (7-20) Creatinine 0.9 mg/dL (0.6-1.0) Estimated GFR (Cockcroft-Gault) 66.5 BUN/Creatinine Ratio 36 (6-20) Glucose Level 181 mg/dL (70-99) Calcium Level 9.9 mg/dL (8.5-10.1) Phosphorus Level 4.0 mg/dL (2.6-4.7) Magnesium Level 1.8 mg/dL (1.8-2.4) Total Bilirubin 0.4 mg/dL (0.2-1.0) Aspartate Amino Transf (AST/SGOT) 21 U/L (15-37) Alanine Aminotransferase (ALT/SGPT) 17 U/L (14-59) Alkaline Phosphatase 91 U/L (46-116) Total Protein 5.2 g/dL (6.4-8.2) Albumin 1.3 g/dL (3.4-5.0) Albumin/Globulin Ratio 0.3 (1.0-1.7) Triglycerides Level 203 mg/dL (0-150) Medications Active Scripts Medications Dose Route/Sig Max Daily Dose Days Date Category Bisoprolol Fumarate 5 Mg Tablet 10 Mg PO DAILY 07/04/19 Reported Comments CXR 09/24/2019 IMPRESSION: Lines and tubes as described above. Left greater than right lower lobe opacities most likely pulmonary edema and left greater than right mild pleural effusions are stable. Superimposed left lower lobe pneumonia is not excluded. ct abdomen /pelvis 09/23 1. Removal of the percutaneous pigtail drainage catheters since the prior exam. Sequela of pancreatitis with extensive pseudocysts again demonstrated, the right-sided collections are slightly larger since the prior exam, the left-sided collections are stable. See above. 2. Moderate to large left pleural effusion with atelectasis and collapse of most of the left lower lobe, stable. Small right pleural effusion is stable. 3. Gallstone. Impression . IMPRESSION: 1. Acute hypoxemic respiratory failure secondary to ARDS status post trach, d eveloped anemia 09/24, blood drainage from RLQ abdomen drain site, and surrounding firmness / developed septic shock 09/24 from abdomen source, required levo /7 s/p 3 new drains 09/24 with brown color drainage,was placed on AVAPS 09/24 post procedure after receiving narcotics. back on TS now at 60 % Bloody drainage again from KAYLIN drains turning dark brown. 2. Gallstone pancreatitis, now with ongoing bleeding from prior drain. Anemic. s/p Tx 4 units, . 3. septic shock, recurrent 09/24, source abdomen. , off levo now, 4. Acute kidney injury-, Off HD--renal function decling. suspect JUANA on CKD due to hypotension , improved now 5. Acute gallstone pancreatitis. 6. Hypoalbuminemia. 7. Moderate persistent effusions, s/p left thora 08/29, reaccumulation of left effusion. O2 requirement not changed. 8. New Fever- ,hypotension. suspect recurrent sepsis/ likely pancreatic source. Per ID, per surgery-- 9. Chronic anemia-- ongoing / s/p PRBC 10. Covid 19 testing negative 11. Moderate to large ascites-S/P paracentisis 12.S/P paracentisis with 4 liters removed on 08/03/19 13. S/P IR drain placement on 08/26/2019, removal 14. Depression/Anxiety 1 Plan . 1. back on trach shield-- PMV/capping as tolerated/ prn suction. 2. Follow all cultures/ PSA from pelvic drains. Abx per ID 3. Follow surgery recs-- Acute pancreatitis with persistent necrosis ---- 08/14 status post KAYLIN drain placement + C paropsilosis; 08/23 + yeast & high amylase; s/p additional drains on 08/25, removal of drains and now increase pseudocyst and increase fluid collection. likely infected fluid/ sepsis. Initiated BS abx.follow surgery rec, planning surgical intervention next week 4. Follow ID recs for ABX---- 5. Follow nephrology recs ----- 6. Continue TPN 7. monitor HGB, 4 units since 09/23--monitor HGB transfuse if less than 8.5 8. hold off on thoracentesis . effusion small to moderate , monitor for now 10. s/p thoracentesis, 08/29, 3 litres removed 1 DVT/GI PPX: protonix--- holding lovenox 2/2 anemia PT/OT D/W VINAYAK MOSLEY MD Sep 29, 2019 09:56
[2019-09-29] MEDS: METOPROLOL TARTRATE 5 MG/5 ML VIAL. IVP PRN ×2 (10:03→14:33)
[2019-09-29] MEDS: MICAFUNGIN 100 MG in IV DEXTROSE 5% 100ML 100 ML IV SCH (10:04)
[2019-09-29 10:07] LABS: BASO % 0 % (0-3); EOS # 0.1 x10^3/uL (0.0-0.7); EOS % 1 % (0-3); HEMATOCRIT 26.2 % (36.0-47.0); HEMOGLOBIN 8.6 g/dL (12.0-15.5); LYMPH # 2.4 x10^3/uL (1.0-4.8); LYMPH % 24 % (24-48); MEAN CORPUSCULAR HEMOGLOBIN 30 pg (25-35); MEAN CORPUSCULAR HGB CONC 33 g/dL (31-37); MEAN CORPUSCULAR VOLUME 91 fL (79-100); MONO # 0.5 x10^3/uL (0.0-1.1); MONO % 5 % (0-9); NEUT # 6.9 x10^3/uL (1.8-7.7); NEUT % 70 % (31-73); PLATELET COUNT 335 x10^3/uL (140-400); RED CELL DISTRIBUTION WIDTH 17.4 % (11.5-14.5); WHITE BLOOD COUNT 9.8 x10^3/uL (4.0-11.0)
--- NOTE | 2019-09-29 12:47 | PDOC ---
G I PROGRESS NOTE Subjective Sleeping, not awakened. Objective Others' notes reviewed. Physical Exam NO PE. Review of Relevant I have reviewed the following items kolby (where applicable) has been applied. Labs Laboratory Tests Test 09/27/19 18:14 09/27/19 23:54 09/28/19 05:50 09/28/19 05:54 Glucose (Fingerstick) 158 mg/dL (70-99) 116 mg/dL (70-99) 152 mg/dL (70-99) White Blood Count 6.8 x10^3/uL (4.0-11.0) Red Blood Count 2.67 x10^6/uL (3.50-5.40) Hemoglobin 7.8 g/dL (12.0-15.5) Hematocrit 24.0 % (36.0-47.0) Mean Corpuscular Volume 90 fL (79-100) Mean Corpuscular Hemoglobin 29 pg (25-35) Mean Corpuscular Hemoglobin Concent 33 g/dL (31-37) Red Cell Distribution Width 18.0 % (11.5-14.5) Platelet Count 279 x10^3/uL (140-400) Neutrophils (%) (Auto) 71 % (31-73) Lymphocytes (%) (Auto) 20 % (24-48) Monocytes (%) (Auto) 7 % (0-9) Eosinophils (%) (Auto) 2 % (0-3) Basophils (%) (Auto) 0 % (0-3) Neutrophils # (Auto) 4.8 x10^3/uL (1.8-7.7) Lymphocytes # (Auto) 1.3 x10^3/uL (1.0-4.8) Monocytes # (Auto) 0.5 x10^3/uL (0.0-1.1) Eosinophils # (Auto) 0.1 x10^3/uL (0.0-0.7) Basophils # (Auto) 0.0 x10^3/uL (0.0-0.2) Sodium Level 147 mmol/L (136-145) Potassium Level 3.9 mmol/L (3.5-5.1) Chloride Level 117 mmol/L (98-107) Carbon Dioxide Level 23 mmol/L (21-32) Anion Gap 7 (6-14) Blood Urea Nitrogen 38 mg/dL (7-20) Creatinine 1.0 mg/dL (0.6-1.0) Estimated GFR (Cockcroft-Gault) 58.9 Glucose Level 164 mg/dL (70-99) Calcium Level 10.0 mg/dL (8.5-10.1) Test 09/28/19 18:37 09/28/19 23:30 09/29/19 06:02 09/29/19 06:15 Glucose (Fingerstick) 152 mg/dL (70-99) 145 mg/dL (70-99) 167 mg/dL (70-99) White Blood Count 9.8 x10^3/uL (4.0-11.0) Red Blood Count 2.90 x10^6/uL (3.50-5.40) Hemoglobin 8.6 g/dL (12.0-15.5) Hematocrit 26.2 % (36.0-47.0) Mean Corpuscular Volume 91 fL (79-100) Mean Corpuscular Hemoglobin 30 pg (25-35) Mean Corpuscular Hemoglobin Concent 33 g/dL (31-37) Red Cell Distribution Width 17.4 % (11.5-14.5) Platelet Count 335 x10^3/uL (140-400) Neutrophils (%) (Auto) 70 % (31-73) Lymphocytes (%) (Auto) 24 % (24-48) Monocytes (%) (Auto) 5 % (0-9) Eosinophils (%) (Auto) 1 % (0-3) Basophils (%) (Auto) 0 % (0-3) Neutrophils # (Auto) 6.9 x10^3/uL (1.8-7.7) Lymphocytes # (Auto) 2.4 x10^3/uL (1.0-4.8) Monocytes # (Auto) 0.5 x10^3/uL (0.0-1.1) Eosinophils # (Auto) 0.1 x10^3/uL (0.0-0.7) Basophils # (Auto) 0.0 x10^3/uL (0.0-0.2) Sodium Level 147 mmol/L (136-145) Potassium Level 4.1 mmol/L (3.5-5.1) Chloride Level 115 mmol/L (98-107) Carbon Dioxide Level 22 mmol/L (21-32) Anion Gap 10 (6-14) Blood Urea Nitrogen 32 mg/dL (7-20) Creatinine 0.9 mg/dL (0.6-1.0) Estimated GFR (Cockcroft-Gault) 66.5 BUN/Creatinine Ratio 36 (6-20) Glucose Level 181 mg/dL (70-99) Calcium Level 9.9 mg/dL (8.5-10.1) Phosphorus Level 4.0 mg/dL (2.6-4.7) Magnesium Level 1.8 mg/dL (1.8-2.4) Total Bilirubin 0.4 mg/dL (0.2-1.0) Aspartate Amino Transf (AST/SGOT) 21 U/L (15-37) Alanine Aminotransferase (ALT/SGPT) 17 U/L (14-59) Alkaline Phosphatase 91 U/L (46-116) Total Protein 5.2 g/dL (6.4-8.2) Albumin 1.3 g/dL (3.4-5.0) Albumin/Globulin Ratio 0.3 (1.0-1.7) Triglycerides Level 203 mg/dL (0-150) Test 09/29/19 11:32 Glucose (Fingerstick) 163 mg/dL (70-99) Laboratory Tests Test 09/28/19 18:37 09/28/19 23:30 09/29/19 06:02 09/29/19 06:15 Glucose (Fingerstick) 152 mg/dL (70-99) 145 mg/dL (70-99) 167 mg/dL (70-99) White Blood Count 9.8 x10^3/uL (4.0-11.0) Red Blood Count 2.90 x10^6/uL (3.50-5.40) Hemoglobin 8.6 g/dL (12.0-15.5) Hematocrit 26.2 % (36.0-47.0) Mean Corpuscular Volume 91 fL (79-100) Mean Corpuscular Hemoglobin 30 pg (25-35) Mean Corpuscular Hemoglobin Concent 33 g/dL (31-37) Red Cell Distribution Width 17.4 % (11.5-14.5) Platelet Count 335 x10^3/uL (140-400) Neutrophils (%) (Auto) 70 % (31-73) Lymphocytes (%) (Auto) 24 % (24-48) Monocytes (%) (Auto) 5 % (0-9) Eosinophils (%) (Auto) 1 % (0-3) Basophils (%) (Auto) 0 % (0-3) Neutrophils # (Auto) 6.9 x10^3/uL (1.8-7.7) Lymphocytes # (Auto) 2.4 x10^3/uL (1.0-4.8) Monocytes # (Auto) 0.5 x10^3/uL (0.0-1.1) Eosinophils # (Auto) 0.1 x10^3/uL (0.0-0.7) Basophils # (Auto) 0.0 x10^3/uL (0.0-0.2) Sodium Level 147 mmol/L (136-145) Potassium Level 4.1 mmol/L (3.5-5.1) Chloride Level 115 mmol/L (98-107) Carbon Dioxide Level 22 mmol/L (21-32) Anion Gap 10 (6-14) Blood Urea Nitrogen 32 mg/dL (7-20) Creatinine 0.9 mg/dL (0.6-1.0) Estimated GFR (Cockcroft-Gault) 66.5 BUN/Creatinine Ratio 36 (6-20) Glucose Level 181 mg/dL (70-99) Calcium Level 9.9 mg/dL (8.5-10.1) Phosphorus Level 4.0 mg/dL (2.6-4.7) Magnesium Level 1.8 mg/dL (1.8-2.4) Total Bilirubin 0.4 mg/dL (0.2-1.0) Aspartate Amino Transf (AST/SGOT) 21 U/L (15-37) Alanine Aminotransferase (ALT/SGPT) 17 U/L (14-59) Alkaline Phosphatase 91 U/L (46-116) Total Protein 5.2 g/dL (6.4-8.2) Albumin 1.3 g/dL (3.4-5.0) Albumin/Globulin Ratio 0.3 (1.0-1.7) Triglycerides Level 203 mg/dL (0-150) Test 09/29/19 11:32 Glucose (Fingerstick) 163 mg/dL (70-99) Microbiology 09/25/19 Gram Stain - Final, Resulted 09/25/19 Aerobic and Anaerobic Culture - Preliminary, Resulted 09/25/19 Antimicrobic Susceptibility - Preliminary, Resulted 09/25/19 Blood Culture - Preliminary, Resulted NO GROWTH AFTER 3 DAYS 09/25/19 Urine Culture - Final, Complete 09/17/19 Gram Stain - Final, Complete 09/17/19 Aerobic Culture - Final, Complete Pseudomonas from fluid collection. Vitals/I & O Vital Sign - Last 24 Hours 09/28/19 09/28/19 09/28/19 09/28/19 13:00 13:24 14:00 15:00 Temp 98.6 98.6 Pulse 124 124 122 126 Resp 40 25 40 33 B/P (MAP) 139/76 (97) 141/76 148/78 (101) 138/78 (98) Pulse Ox 100 100 100 O2 Delivery Tracheal Collar Tracheal Collar Tracheal Collar O2 Flow Rate 10.0 10.0 10.0 09/28/19 09/28/19 09/28/19 09/28/19 16:00 16:00 16:25 16:55 Temp 98.2 98.2 Pulse 132 Resp 40 32 B/P (MAP) 158/82 (107) Pulse Ox 100 100 100 O2 Delivery Tracheal Collar Trach Collar O2 Flow Rate 10.0 10.0 10.0 09/28/19 09/28/19 09/28/19 09/28/19 17:00 18:00 19:00 20:00 Pulse 120 142 134 Resp 30 50 45 B/P (MAP) 153/74 (100) 207/91 (129) 130/70 (90) Pulse Ox 100 100 100 O2 Delivery Tracheal Collar Tracheal Collar Tracheal Collar Trach Collar O2 Flow Rate 10.0 10.0 10.0 10.0 09/28/19 09/28/19 09/28/19 09/28/19 20:00 21:00 22:00 23:00 Temp 100.3 100.3 Pulse 133 134 136 134 Resp 46 44 48 38 B/P (MAP) 129/72 (91) 152/78 (102) 127/75 (92) 129/64 (85) Pulse Ox 99 99 99 98 O2 Delivery Tracheal Collar Tracheal Collar Tracheal Collar Tracheal Collar O2 Flow Rate 10.0 10.0 10.0 10.0 6/11/09/29/19 09/29/19 09/29/19 00:00 00:00 01:00 02:00 Temp 98.9 98.9 Pulse 130 120 118 Resp 42 29 30 B/P (MAP) 128/68 (88) 104/54 (71) 119/58 (78) Pulse Ox 99 99 97 O2 Delivery Tracheal Collar Trach Collar Tracheal Collar Tracheal Collar O2 Flow Rate 10.0 10.0 10.0 10.0 09/29/19 09/29/19 09/29/19 09/29/19 03:00 04:00 04:00 05:00 Temp 98.1 98.1 Pulse 120 124 123 Resp 38 38 36 B/P (MAP) 149/68 (95) 137/62 (87) 145/65 (91) Pulse Ox 99 98 99 O2 Delivery Tracheal Collar Trach Collar Tracheal Collar Tracheal Collar O2 Flow Rate 10.0 10.0 10.0 10.0 09/29/19 09/29/19 09/29/19 09/29/19 06:00 07:00 08:00 08:00 Temp 98.6 98.6 Pulse 138 140 138 Resp 58 42 48 B/P (MAP) 192/86 (121) 168/78 (108) 155/80 (105) Pulse Ox 85 96 97 O2 Delivery Tracheal Collar Tracheal Collar Tracheal Collar O2 Flow Rate 10.0 10.0 10.0 09/29/19 09/29/19 09/29/19 09/29/19 08:00 09:00 10:00 10:03 Pulse 134 122 Resp 42 40 44 B/P (MAP) 159/77 (104) 124/68 (86) Pulse Ox 96 98 95 O2 Delivery Trach Collar Tracheal Collar Tracheal Collar Tracheal Collar O2 Flow Rate 10.0 10.0 10.0 10.0 09/29/19 09/29/19 09/29/19 09/29/19 10:03 10:33 11:00 11:45 Pulse 144 124 Resp 40 38 B/P (MAP) 198/82 131/61 (84) Pulse Ox 96 95 O2 Delivery Tracheal Collar Tracheal Collar Trach Collar O2 Flow Rate 10.0 10.0 10.0 09/29/19 09/29/19 12:00 12:00 Temp 98.4 98.4 Pulse 128 Resp 40 B/P (MAP) 149/79 (102) Pulse Ox 99 O2 Delivery Tracheal Collar O2 Flow Rate 10.0 Intake and Output 09/28/19 09/28/19 09/29/19 15:00 23:00 07:00 Intake Total 400 ml 100 ml 3526 ml Output Total 620 ml 765 ml 1030 ml Balance -220 ml -665 ml 2496 ml Problem List Problems Medical Problems: (1) Acute pancreatitis Status: Acute (2) Cholelithiasis Status: Acute Assessment Severe gallstone pancreatitis, prolonged course. Pseudomonas in fluid collection. Plan of Care Note Continue support. Treatment of Pseudomonas per ID; will definitely require surgical drainage at some point. Possible this is contaminant from skin? In ICU a long time. Justicifation of Admission Dx: Justifications for Admission: Justification of Admission Dx: Yes MARY RIVAS MD Sep 29, 2019 12:47
[2019-09-29] MEDS: TPN PER PHARMACY MC PRN (12:57)
--- NOTE | 2019-09-29 12:57 | NUR ---
SS following up with discharge planning. SS reviewed pt chart and discussed with pt RN. Pt on trach shield, TPN, Meropenem, and Micafungin. Pt has three drains and is max assist with PT/OT. Pt declining to wear trach cap today. Per RN, possible surgery next week. SS will continue to follow for discharge planning.
--- NOTE | 2019-09-29 12:59 | NUR ---
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, 8 inches Weight: 80.0 kg Current diet: NPO LABS: Sodium: 147 Potassium: 4.1 Chloride: 115 Calcium: 9.9 Corrected Calcium: 12.06 Magnesium: 1.8 CO2: 22 SCr: 0.9 Glucose: 163-181 Albumin: 1.3 AST: 21 ALT: 17 TPN FORMULA: TPN TYPE: Central Continuous AMINO ACIDS: 75 gm DEXTROSE: 250 gm LIPIDS: 20 gm POTASSIUM ACETATE: 40 mEq MAGNESIUM: 5 mEq INSULIN: 30 units MULTIPLE VITAMIN: 10 ml TRACE ELEMENTS: 1 ml(s) TPN PLAN: Cont same R: Continue TPN Will monitor electrolytes, glucose, and tolerance to TPN. Raeann Mcdonnell RPH, 09/29/19 [id number]
--- NOTE | 2019-09-29 14:54 | PDOC ---
SURGICAL PROGRESS NOTE Subjective Pt working with therapy in bed and off vent Vital Signs Vital Signs Date Time Temp Pulse Resp B/P (MAP) Pulse Ox O2 Delivery O2 Flow Rate FiO2 09/29/19 14:33 136 161/73 09/29/19 14:33 46 95 Tracheal Collar 09/29/19 14:00 10.0 09/29/19 12:00 98.4 98.4 I&O Intake and Output 09/29/19 07:00 Intake Total 4026 ml Output Total 2415 ml Balance 1611 ml IV Total 3626 ml Blood Product IV Normal Saline Flush 400 ml Output Urine Total 1780 ml Drainage Total 635 ml General: Alert, Cooperative, No acute distress Labs Laboratory Tests Test 09/27/19 18:14 09/27/19 23:54 09/28/19 05:50 09/28/19 05:54 Glucose (Fingerstick) 158 mg/dL (70-99) 116 mg/dL (70-99) 152 mg/dL (70-99) White Blood Count 6.8 x10^3/uL (4.0-11.0) Red Blood Count 2.67 x10^6/uL (3.50-5.40) Hemoglobin 7.8 g/dL (12.0-15.5) Hematocrit 24.0 % (36.0-47.0) Mean Corpuscular Volume 90 fL (79-100) Mean Corpuscular Hemoglobin 29 pg (25-35) Mean Corpuscular Hemoglobin Concent 33 g/dL (31-37) Red Cell Distribution Width 18.0 % (11.5-14.5) Platelet Count 279 x10^3/uL (140-400) Neutrophils (%) (Auto) 71 % (31-73) Lymphocytes (%) (Auto) 20 % (24-48) Monocytes (%) (Auto) 7 % (0-9) Eosinophils (%) (Auto) 2 % (0-3) Basophils (%) (Auto) 0 % (0-3) Neutrophils # (Auto) 4.8 x10^3/uL (1.8-7.7) Lymphocytes # (Auto) 1.3 x10^3/uL (1.0-4.8) Monocytes # (Auto) 0.5 x10^3/uL (0.0-1.1) Eosinophils # (Auto) 0.1 x10^3/uL (0.0-0.7) Basophils # (Auto) 0.0 x10^3/uL (0.0-0.2) Sodium Level 147 mmol/L (136-145) Potassium Level 3.9 mmol/L (3.5-5.1) Chloride Level 117 mmol/L (98-107) Carbon Dioxide Level 23 mmol/L (21-32) Anion Gap 7 (6-14) Blood Urea Nitrogen 38 mg/dL (7-20) Creatinine 1.0 mg/dL (0.6-1.0) Estimated GFR (Cockcroft-Gault) 58.9 Glucose Level 164 mg/dL (70-99) Calcium Level 10.0 mg/dL (8.5-10.1) Test 09/28/19 18:37 09/28/19 23:30 09/29/19 06:02 09/29/19 06:15 Glucose (Fingerstick) 152 mg/dL (70-99) 145 mg/dL (70-99) 167 mg/dL (70-99) White Blood Count 9.8 x10^3/uL (4.0-11.0) Red Blood Count 2.90 x10^6/uL (3.50-5.40) Hemoglobin 8.6 g/dL (12.0-15.5) Hematocrit 26.2 % (36.0-47.0) Mean Corpuscular Volume 91 fL (79-100) Mean Corpuscular Hemoglobin 30 pg (25-35) Mean Corpuscular Hemoglobin Concent 33 g/dL (31-37) Red Cell Distribution Width 17.4 % (11.5-14.5) Platelet Count 335 x10^3/uL (140-400) Neutrophils (%) (Auto) 70 % (31-73) Lymphocytes (%) (Auto) 24 % (24-48) Monocytes (%) (Auto) 5 % (0-9) Eosinophils (%) (Auto) 1 % (0-3) Basophils (%) (Auto) 0 % (0-3) Neutrophils # (Auto) 6.9 x10^3/uL (1.8-7.7) Lymphocytes # (Auto) 2.4 x10^3/uL (1.0-4.8) Monocytes # (Auto) 0.5 x10^3/uL (0.0-1.1) Eosinophils # (Auto) 0.1 x10^3/uL (0.0-0.7) Basophils # (Auto) 0.0 x10^3/uL (0.0-0.2) Sodium Level 147 mmol/L (136-145) Potassium Level 4.1 mmol/L (3.5-5.1) Chloride Level 115 mmol/L (98-107) Carbon Dioxide Level 22 mmol/L (21-32) Anion Gap 10 (6-14) Blood Urea Nitrogen 32 mg/dL (7-20) Creatinine 0.9 mg/dL (0.6-1.0) Estimated GFR (Cockcroft-Gault) 66.5 BUN/Creatinine Ratio 36 (6-20) Glucose Level 181 mg/dL (70-99) Calcium Level 9.9 mg/dL (8.5-10.1) Phosphorus Level 4.0 mg/dL (2.6-4.7) Magnesium Level 1.8 mg/dL (1.8-2.4) Total Bilirubin 0.4 mg/dL (0.2-1.0) Aspartate Amino Transf (AST/SGOT) 21 U/L (15-37) Alanine Aminotransferase (ALT/SGPT) 17 U/L (14-59) Alkaline Phosphatase 91 U/L (46-116) Total Protein 5.2 g/dL (6.4-8.2) Albumin 1.3 g/dL (3.4-5.0) Albumin/Globulin Ratio 0.3 (1.0-1.7) Triglycerides Level 203 mg/dL (0-150) Test 09/29/19 11:32 Glucose (Fingerstick) 163 mg/dL (70-99) Laboratory Tests Test 09/28/19 18:37 09/28/19 23:30 09/29/19 06:02 09/29/19 06:15 Glucose (Fingerstick) 152 mg/dL (70-99) 145 mg/dL (70-99) 167 mg/dL (70-99) White Blood Count 9.8 x10^3/uL (4.0-11.0) Red Blood Count 2.90 x10^6/uL (3.50-5.40) Hemoglobin 8.6 g/dL (12.0-15.5) Hematocrit 26.2 % (36.0-47.0) Mean Corpuscular Volume 91 fL (79-100) Mean Corpuscular Hemoglobin 30 pg (25-35) Mean Corpuscular Hemoglobin Concent 33 g/dL (31-37) Red Cell Distribution Width 17.4 % (11.5-14.5) Platelet Count 335 x10^3/uL (140-400) Neutrophils (%) (Auto) 70 % (31-73) Lymphocytes (%) (Auto) 24 % (24-48) Monocytes (%) (Auto) 5 % (0-9) Eosinophils (%) (Auto) 1 % (0-3) Basophils (%) (Auto) 0 % (0-3) Neutrophils # (Auto) 6.9 x10^3/uL (1.8-7.7) Lymphocytes # (Auto) 2.4 x10^3/uL (1.0-4.8) Monocytes # (Auto) 0.5 x10^3/uL (0.0-1.1) Eosinophils # (Auto) 0.1 x10^3/uL (0.0-0.7) Basophils # (Auto) 0.0 x10^3/uL (0.0-0.2) Sodium Level 147 mmol/L (136-145) Potassium Level 4.1 mmol/L (3.5-5.1) Chloride Level 115 mmol/L (98-107) Carbon Dioxide Level 22 mmol/L (21-32) Anion Gap 10 (6-14) Blood Urea Nitrogen 32 mg/dL (7-20) Creatinine 0.9 mg/dL (0.6-1.0) Estimated GFR (Cockcroft-Gault) 66.5 BUN/Creatinine Ratio 36 (6-20) Glucose Level 181 mg/dL (70-99) Calcium Level 9.9 mg/dL (8.5-10.1) Phosphorus Level 4.0 mg/dL (2.6-4.7) Magnesium Level 1.8 mg/dL (1.8-2.4) Total Bilirubin 0.4 mg/dL (0.2-1.0) Aspartate Amino Transf (AST/SGOT) 21 U/L (15-37) Alanine Aminotransferase (ALT/SGPT) 17 U/L (14-59) Alkaline Phosphatase 91 U/L (46-116) Total Protein 5.2 g/dL (6.4-8.2) Albumin 1.3 g/dL (3.4-5.0) Albumin/Globulin Ratio 0.3 (1.0-1.7) Triglycerides Level 203 mg/dL (0-150) Test 09/29/19 11:32 Glucose (Fingerstick) 163 mg/dL (70-99) Problem List Problems Medical Problems: (1) Acute pancreatitis Status: Acute (2) Cholelithiasis Status: Acute Assessment/Plan severe pancreatitis cont supportive care tentatively plan surgical intervention in a few weeks, if continued improvement. Justicifation of Admission Dx: Justifications for Admission: Justification of Admission Dx: Yes DAVON SIMMS MD Sep 29, 2019 14:54
[2019-09-29] MEDS: ONDANSETRON PF 4 MG/2 ML VIAL. IV PRN (15:22)
[2019-09-29] MEDS ORDERED: AMINO ACID IV SCH ×8 (22:00)
[2019-09-29] MEDS ORDERED: DEXTROSE 70% IV SCH ×8 (22:00)
[2019-09-29] MEDS ORDERED: [UNRECOGNIZED DRUG - OTHER] IV SCH ×8 (22:00)
[2019-09-29] MEDS ORDERED: TOTAL PARENTERAL NUTRITION IV SCH ×8 (22:00)
[2019-09-30] VITALS (29 sets, daily range): BP systolic 113–160; BP diastolic 60–81
--- NOTE | 2019-09-30 00:30 | NUR ---
Approx 2200H, vomited green bile. Sao2 <88 %. NG placed on low continuous suction with very little amount. NG flushed with 30mls and placed on suction. After flushing all three drains >500 mls of sanguinous fluid out of JPs. Deep suction to trach with green secretions. Trach care. After interventions, NG dc'd from suciton and clamped and placed back on trach shield. Continued to monitor drains and oxygenation.
[2019-09-30] MEDS: IV NORMAL SALINE 1000ML BAG 1,000 ML IV SCH ×2 (02:19→14:57)
[2019-09-30] MEDS: INSULIN LISPRO 300 UNITS/3 ML VIAL. SQ SCH ×4 (06:22→17:12)
[2019-09-30 06:28] LABS: BASO % 0 % (0-3); EOS # 0.1 x10^3/uL (0.0-0.7); EOS % 1 % (0-3); HEMATOCRIT 22.9 % (36.0-47.0); HEMOGLOBIN 7.6 g/dL (12.0-15.5); LYMPH # 1.6 x10^3/uL (1.0-4.8); LYMPH % 18 % (24-48); MEAN CORPUSCULAR HEMOGLOBIN 30 pg (25-35); MEAN CORPUSCULAR HGB CONC 33 g/dL (31-37); MEAN CORPUSCULAR VOLUME 90 fL (79-100); MONO # 0.6 x10^3/uL (0.0-1.1); MONO % 6 % (0-9); NEUT # 6.5 x10^3/uL (1.8-7.7); NEUT % 74 % (31-73); PLATELET COUNT 349 x10^3/uL (140-400); RED BLOOD COUNT 2.56 x10^6/uL (3.50-5.40); RED CELL DISTRIBUTION WIDTH 16.6 % (11.5-14.5); WHITE BLOOD COUNT 8.7 x10^3/uL (4.0-11.0)
[2019-09-30 06:56] LABS: ALBUMIN 1.1 g/dL (3.4-5.0); ALBUMIN/GLOBULIN RATIO 0.3 (1.0-1.7); CALCIUM 9.8 mg/dL (8.5-10.1); CREATININE 0.8 mg/dL (0.6-1.0); GFR 76.2; POTASSIUM 3.9 mmol/L (3.5-5.1); TOTAL BILIRUBIN 0.4 mg/dL (0.2-1.0); TOTAL PROTEIN 5.1 g/dL (6.4-8.2)
--- NOTE | 2019-09-30 07:57 | PDOC ---
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 LUE-PICC (09/15) without signs of complications Medications: Inpatient Meds: Current Medications Medications (Trade) Dose Ordered Sig/Yvon Start Time Stop Time Status Last Admin Dose Admin Acetaminophen (Tylenol Supp) 650 mg PRN Q6HRS PRN 07/12/19 10:30 09/28/19 22:16 650 MG Acetaminophen (Tylenol) 650 mg PRN Q6HRS PRN 07/09/19 03:36 08/31/19 10:25 DC 08/04/19 19:56 650 MG Albumin Human 500 ml @ 125 mls/hr 1X ONCE 09/25/19 08:15 09/25/19 12:14 DC 09/25/19 08:10 125 MLS/HR Albuterol Sulfate (Ventolin Neb Soln) 2.5 mg 1X ONCE 07/05/19 22:30 07/05/19 22:31 DC 07/06/19 00:56 2.5 MG Alteplase, Recombinant (Cathflo For Central Catheter Clearance) 1 mg 1X ONCE 08/12/19 10:45 08/12/19 10:46 DC 08/12/19 11:44 1 MG Amino Acids/ Glycerin/ Electrolytes 1,000 ml @ 75 mls/hr [id number] 08/08/19 21:15 UNV Artificial Tears (Artificial Tears) 1 drop PRN Q15MIN PRN 08/17/19 05:30 09/16/19 10:08 1 DROP Atenolol (Tenormin) 100 mg DAILY 07/05/19 09:00 07/04/19 20:08 DC Atropine Sulfate (ATROPINE 0.5mg SYRINGE) 0.5 mg PRN Q5MIN PRN 07/21/19 08:15 Barium Sulfate (Varibar Thin Liquid Apple) 148 gm 1X ONCE 09/13/19 11:45 09/13/19 11:49 DC Benzocaine (Hurricaine One) 1 spray 1X ONCE 07/08/19 14:30 07/08/19 14:31 DC 07/08/19 16:38 1 SPRAY Bisacodyl (Dulcolax Supp) 10 mg STK-MED ONCE 08/15/19 10:59 08/15/19 10:59 DC Bumetanide (Bumex) 2 mg DAILY 08/26/19 10:00 09/05/19 17:15 DC 09/05/19 08:07 2 MG Bupivacaine HCl/ Epinephrine Bitart (Sensorcain-Epi 0.5%-1:044451 Mpf) 30 ml STK-MED ONCE 08/15/19 10:58 08/15/19 10:58 DC 08/15/19 12:01 7 ML Calcium Carbonate/ Glycine (Tums) 500 mg PRN [id number] PRN 07/06/19 17:45 08/31/19 10:25 DC Calcium Chloride 1000 mg/Sodium Chloride 110 ml @ 220 mls/hr 1X ONCE 07/05/19 22:30 07/05/19 22:59 DC 07/05/19 22:11 220 MLS/HR Calcium Chloride 3000 mg/Sodium Chloride 1,030 ml @ 50 mls/hr [id number] 07/07/19 08:00 07/09/19 15:23 DC 07/09/19 02:17 50 MLS/HR Calcium Gluconate (Calcium Gluconate) 2,000 mg 1X ONCE 07/07/19 02:15 07/07/19 02:16 DC 07/07/19 02:19 2,000 MG Calcium Gluconate 1000 mg/Sodium Chloride 110 ml @ 220 mls/hr 1X ONCE 07/06/19 03:30 07/06/19 03:59 DC 07/06/19 03:21 220 MLS/HR Calcium Gluconate 2000 mg/Sodium Chloride 120 ml @ 220 mls/hr 1X ONCE 07/06/19 07:30 07/06/19 08:02 DC 07/06/19 09:05 220 MLS/HR Cefepime HCl (Maxipime) 2 gm Q12HR 07/13/19 09:00 07/27/19 09:58 DC 07/26/19 20:56 2 GM Cellulose (Surgicel Fibrillar 1x2) 1 each STK-MED ONCE 07/25/19 11:00 07/25/19 11:01 DC Cellulose (Surgicel Hemostat 2x14) 1 each STK-MED ONCE 08/15/19 10:58 08/15/19 10:59 DC Cellulose (Surgicel Hemostat 4x8) 1 each STK-MED ONCE 08/15/19 10:58 08/15/19 10:59 DC Cyclobenzaprine HCl (Flexeril) 10 mg PRN Q6HRS PRN 08/18/19 10:45 Daptomycin 410 mg/ Sodium Chloride 50 ml @ 100 mls/hr Q24H 09/25/19 14:00 09/28/19 08:30 DC 09/27/19 13:33 100 MLS/HR Daptomycin 430 mg/ Sodium Chloride 50 ml @ 100 mls/hr Q24H 08/13/19 13:00 08/18/19 20:58 DC 08/18/19 13:00 100 MLS/HR Daptomycin 450 mg/ Sodium Chloride 50 ml @ 100 mls/hr Q24H 09/04/19 09:00 09/08/19 08:30 DC 09/07/19 09:25 100 MLS/HR Daptomycin 485 mg/ Sodium Chloride 50 ml @ 100 mls/hr Q24H 08/22/19 11:00 08/30/19 07:44 DC 08/29/19 13:10 100 MLS/HR Daptomycin 500 mg/ Sodium Chloride 50 ml @ 100 mls/hr Q48H 07/13/19 08:30 07/29/19 10:07 DC 07/29/19 09:57 100 MLS/HR Dexamethasone Sodium Phosphate (Decadron) 4 mg STK-MED ONCE 08/15/19 10:56 08/15/19 10:57 DC Dexmedetomidine HCl 400 mcg/ Sodium Chloride 100 ml @ 0 mls/hr CONT PRN 07/21/19 08:15 09/17/19 18:31 DC 09/17/19 12:57 8 MLS/HR Dextrose (Dextrose 50%-Water Syringe) 12.5 gm PRN Q15MIN PRN 07/04/19 09:30 Digoxin (Lanoxin) 125 mcg 1X ONCE 07/07/19 18:00 07/07/19 18:01 DC 07/07/19 17:10 125 MCG Diphenhydramine HCl (Benadryl) 25 mg 1X PRN PRN 08/12/19 15:45 08/13/19 15:44 DC Duloxetine HCl (Cymbalta) 30 mg DAILY 08/28/19 14:00 08/31/19 10:25 DC 08/29/19 09:48 30 MG Enoxaparin Sodium (Lovenox 100mg Syringe) 100 mg Q12HR 08/09/19 21:00 UNV Enoxaparin Sodium (Lovenox 40mg Syringe) 40 mg Q24H 09/04/19 17:00 09/25/19 06:50 DC 09/23/19 17:44 40 MG Etomidate (Amidate) 8 mg 1X ONCE 07/11/19 08:30 07/11/19 08:31 DC 07/11/19 08:33 8 MG Fentanyl (Duragesic 50mcg/ Hr Patch) 1 patch Q72H 09/22/19 21:00 09/22/19 21:22 1 PATCH Fentanyl Citrate (Fentanyl 2ml Vial) 100 mcg 1X ONCE 09/25/19 15:00 09/25/19 15:01 DC 09/25/19 15:28 50 MCG Fentanyl Citrate (Fentanyl 5ml Vial) 250 mcg 1X ONCE 08/26/19 09:15 08/26/19 09:16 DC 08/26/19 09:30 50 MCG Flumazenil (Romazicon) 0.5 mg STK-MED ONCE 09/25/19 14:48 09/25/19 14:48 DC Fluoxetine HCl (PROzac) 20 mg QHS 09/22/19 21:00 09/29/19 23:22 20 MG Furosemide (Lasix) 40 mg DAILY 09/21/19 13:30 09/25/19 09:12 DC 09/23/19 11:14 40 MG Haloperidol Lactate (Haldol Inj) 3 mg 1X ONCE 08/22/19 14:30 08/22/19 14:31 DC 08/22/19 14:37 3 MG Heparin Sodium (Porcine) (Hep Lock Adult) 500 unit STK-MED ONCE 07/26/19 09:29 07/26/19 09:30 DC Heparin Sodium (Porcine) (Heparin Sodium) 5,000 unit Q12HR 08/15/19 21:00 08/25/19 09:59 DC 08/24/19 20:57 5,000 UNIT Heparin Sodium (Porcine) 1000 unit/Sodium Chloride 1,001 ml @ 1,001 mls/hr 1X ONCE 08/15/19 12:00 08/15/19 12:59 DC Hydromorphone HCl (Dilaudid Standard RN PERIOPERATIVE) 12 mg STK-MED ONCE 08/19/19 15:50 08/30/19 11:24 DC Hydromorphone HCl (Dilaudid) 1 mg PRN Q4HRS PRN 08/22/19 19:00 09/05/19 17:10 DC 09/05/19 06:25 1 MG Info (CONTRAST GIVEN -- Rx MONITORING) 1 each PRN DAILY PRN 07/18/19 11:45 07/20/19 11:44 DC Info (Icu Electrolyte Protocol) 1 ea CONT PRN PRN 07/17/19 13:15 Info (PHARMACY MONITORING -- do not chart) 1 each PRN DAILY PRN 08/12/19 15:45 09/13/19 14:14 DC Info (Tpn Per Pharmacy) 1 each PRN DAILY PRN 07/06/19 12:30 UNV Insulin Human Lispro (HumaLOG) 0-9 UNITS Q6HRS 07/04/19 09:30 09/30/19 06:22 4 UNITS Insulin Human Regular (HumuLIN R VIAL) 5 unit 1X ONCE 07/05/19 22:30 07/05/19 22:31 DC 07/05/19 22:14 5 UNIT Iohexol (Omnipaque 240 Mg/ml) 30 ml 1X ONCE 07/18/19 11:30 07/18/19 11:33 DC 07/18/19 11:30 30 ML Iohexol (Omnipaque 300 Mg/ml) 50 ml STK-MED ONCE 08/15/19 10:58 08/15/19 10:59 DC Iohexol (Omnipaque 350 Mg/ml) 90 ml 1X ONCE 07/04/19 03:30 07/04/19 03:31 DC 07/04/19 03:25 90 ML Ketorolac Tromethamine (Toradol 30mg Vial) 30 mg 1X ONCE 07/04/19 03:00 07/04/19 03:01 DC 07/04/19 02:54 30 MG Lidocaine HCl (Buffered Lidocaine 1%) 6 ml 1X ONCE 08/30/19 14:15 08/30/19 14:16 DC 08/30/19 14:15 3 ML Lidocaine HCl (Glydo (Lidocaine) Jelly) 1 ramu 1X ONCE 07/08/19 14:30 07/08/19 14:31 DC 07/08/19 16:38 1 RAMU Lidocaine HCl (Lidocaine 1% 20ml Vial) 20 ml 1X ONCE 09/25/19 15:00 09/25/19 15:01 DC 09/25/19 15:30 20 ML Lidocaine HCl (Xylocaine-Mpf 1% 2ml Vial) 2 ml PRN 1X PRN 08/15/19 07:00 08/16/19 06:59 DC Linezolid/Dextrose 300 ml @ 300 mls/hr Q12HR 09/04/19 09:00 09/07/19 08:11 DC 09/06/19 21:08 300 MLS/HR Lorazepam (Ativan Inj) 0.25 mg PRN Q4HRS PRN 09/21/19 07:30 09/29/19 05:53 0.25 MG Magnesium Sulfate 50 ml @ 25 mls/hr 1X ONCE 08/28/19 09:00 08/28/19 10:59 DC 08/28/19 10:44 25 MLS/HR Meropenem 1 gm/ Sodium Chloride 100 ml @ 200 mls/hr Q12HR 09/25/19 21:00 09/29/19 23:22 200 MLS/HR Meropenem 500 mg/ Sodium Chloride 50 ml @ 100 mls/hr Q6HRS 09/12/19 18:00 09/14/19 09:59 DC 09/14/19 06:02 100 MLS/HR Metoclopramide HCl (Reglan Vial) 10 mg PRN Q3HRS PRN 08/27/19 16:45 09/01/19 04:25 10 MG Metoprolol Tartrate (Lopressor Vial) 5 mg PRN Q6HRS PRN 09/28/19 09:00 09/29/19 14:33 5 MG Metronidazole 100 ml @ 100 mls/hr Q8HRS 08/02/19 10:00 08/09/19 08:10 DC 08/09/19 06:04 100 MLS/HR Micafungin Sodium 100 mg/Dextrose 100 ml @ 100 mls/hr Q24H 09/25/19 11:00 09/29/19 10:04 100 MLS/HR Midazolam HCl (Versed) 2 mg 1X ONCE 09/25/19 15:00 09/25/19 15:01 DC 09/25/19 15:28 1 MG Midazolam HCl 100 mg/Sodium Chloride 100 ml @ 7 mls/hr CONT PRN 07/16/19 16:00 09/21/19 14:38 DC 07/27/19 15:35 7 MLS/HR Midazolam HCl 50 mg/Sodium Chloride 50 ml @ 0 mls/hr CONT PRN 07/11/19 08:15 07/16/19 15:59 DC 07/14/19 22:39 7 MLS/HR Morphine Sulfate (Morphine Sulfate) 2 mg PRN Q2HR PRN 07/04/19 05:00 07/05/19 14:15 DC 07/05/19 12:26 2 MG Multi-Ingred Cream/Lotion/Oil/ Oint (Artificial Tears Eye Ointment) 1 ramu PRN Q1HR PRN 07/13/19 17:30 09/21/19 14:39 DC 08/01/19 08:19 1 RAMU Naloxone HCl (Narcan) 0.4 mg STK-MED ONCE 09/25/19 14:48 09/25/19 14:48 DC Norepinephrine Bitartrate 8 mg/ Dextrose 258 ml @ 13.332 mls/ hr CONT PRN 09/25/19 06:30 09/25/19 21:46 13.332 MLS/HR Ondansetron HCl (Zofran) 4 mg STK-MED ONCE 08/15/19 10:56 08/15/19 10:57 DC Pantoprazole Sodium (PROTONIX VIAL for IV PUSH) 40 mg DAILYAC 07/04/19 11:30 09/29/19 09:22 40 MG Phenylephrine HCl (PHENYLEPHRINE in 0.9% NACL PF) 1 mg STK-MED ONCE 08/15/19 12:34 08/15/19 12:34 DC Piperacillin Sod/ Tazobactam Sod 3.375 gm/Sodium Chloride 50 ml @ 100 mls/hr Q6HRS 09/14/19 12:00 09/22/19 07:26 DC 09/22/19 06:10 100 MLS/HR Piperacillin Sod/ Tazobactam Sod 4.5 gm/Sodium Chloride 100 ml @ 200 mls/hr 1X ONCE 07/04/19 06:00 07/04/19 06:29 DC 07/04/19 05:44 200 MLS/HR Potassium Chloride 110 meq/ Magnesium Sulfate 20 meq/ Multivitamins 10 ml/Chromium/ Copper/Manganese/ Seleni/Zn 1 ml/ Insulin Human Regular 15 unit/ Total Parenteral Nutrition/Amino Acids/Dextrose/ Fat Emulsion Intravenous 1,800 ml @ 75 mls/hr TPN CONT 09/11/19 22:00 09/12/19 21:59 DC 09/11/19 22:48 75 MLS/HR Potassium Chloride 15 meq/ Bicarbonate Dialysis Soln w/ out KCl 5,007.5 ml @ 1,000 mls/ hr Q5H1M 07/17/19 20:00 07/21/19 13:08 DC 07/20/19 18:14 1,000 MLS/HR Potassium Chloride 20 meq/ Bicarbonate Dialysis Soln w/ out KCl 5,010 ml @ 1,000 mls/hr Q5H1M 07/13/19 16:00 07/17/19 19:59 DC 07/17/19 14:54 1,000 MLS/HR Potassium Chloride 40 meq/ Potassium Acetate 60 meq/Magnesium Sulfate 10 meq/ Multivitamins 10 ml/Chromium/ Copper/Manganese/ Seleni/Zn 1 ml/ Insulin Human Regular 20 unit/ Total Parenteral Nutrition/Amino Acids/Dextrose/ Fat Emulsion Intravenous 1,800 ml @ 75 mls/hr TPN CONT 09/22/19 22:00 09/23/19 21:59 DC 09/23/19 00:03 75 MLS/HR Potassium Chloride 70 meq/ Magnesium Sulfate 20 meq/ Multivitamins 10 ml/Chromium/ Copper/Manganese/ Seleni/Zn 1 ml/ Insulin Human Regular 15 unit/ Total Parenteral Nutrition/Amino Acids/Dextrose/ Fat Emulsion Intravenous 1,800 ml @ 75 mls/hr TPN CONT 09/16/19 22:00 09/17/19 21:59 DC 09/16/19 23:13 75 MLS/HR Potassium Chloride 75 meq/ Magnesium Sulfate 15 meq/ Multivitamins 10 ml/Chromium/ Copper/Manganese/ Seleni/Zn 0.5 ml/ Insulin Human Regular 15 unit/ Total Parenteral Nutrition/Amino Acids/Dextrose/ Fat Emulsion Intravenous 1,920 ml @ 80 mls/hr TPN CONT 08/27/19 22:00 08/28/19 21:59 DC 08/27/19 22:41 80 MLS/HR Potassium Chloride 75 meq/ Magnesium Sulfate 15 meq/Calcium Gluconate 8 meq/ Multivitamins 10 ml/Chromium/ Copper/Manganese/ Seleni/Zn 0.5 ml/ Insulin Human Regular 15 unit/ Total Parenteral Nutrition/Amino Acids/Dextrose/ Fat Emulsion Intravenous 1,920 ml @ 80 mls/hr TPN CONT 08/25/19 22:00 08/26/19 21:59 DC 08/25/19 22:28 80 MLS/HR Potassium Chloride 75 meq/ Magnesium Sulfate 15 meq/Calcium Gluconate 8 meq/ Multivitamins 10 ml/Chromium/ Copper/Manganese/ Seleni/Zn 0.5 ml/ Insulin Human Regular 20 unit/ Total Parenteral Nutrition/Amino Acids/Dextrose/ Fat Emulsion Intravenous 1,920 ml @ 80 mls/hr TPN CONT 08/24/19 22:00 08/25/19 21:59 DC 08/24/19 22:00 80 MLS/HR Potassium Chloride 75 meq/ Magnesium Sulfate 15 meq/Calcium Gluconate 8 meq/ Multivitamins 10 ml/Chromium/ Copper/Manganese/ Seleni/Zn 0.5 ml/ Insulin Human Regular 25 unit/ Total Parenteral Nutrition/Amino Acids/Dextrose/ Fat Emulsion Intravenous 1,920 ml @ 80 mls/hr TPN CONT 08/22/19 22:00 08/23/19 21:59 DC 08/22/19 23:08 80 MLS/HR Potassium Chloride 75 meq/ Magnesium Sulfate 20 meq/Calcium Gluconate 10 meq/ Multivitamins 10 ml/Chromium/ Copper/Manganese/ Seleni/Zn 0.5 ml/ Insulin Human Regular 25 unit/ Total Parenteral Nutrition/Amino Acids/Dextrose/ Fat Emulsion Intravenous 1,920 ml @ 80 mls/hr TPN CONT 08/21/19 22:00 08/22/19 21:59 DC 08/21/19 22:04 80 MLS/HR Potassium Chloride 75 meq/ Magnesium Sulfate 20 meq/Calcium Gluconate 10 meq/ Multivitamins 10 ml/Chromium/ Copper/Manganese/ Seleni/Zn 0.5 ml/ Insulin Human Regular 30 unit/ Total Parenteral Nutrition/Amino Acids/Dextrose/ Fat Emulsion Intravenous 1,920 ml @ 80 mls/hr TPN CONT 08/20/19 22:00 08/21/19 22:00 DC 08/20/19 21:51 80 MLS/HR Potassium Chloride 80 meq/ Magnesium Sulfate 20 meq/ Multivitamins 10 ml/Chromium/ Copper/Manganese/ Seleni/Zn 0.5 ml/ Insulin Human Regular 15 unit/ Total Parenteral Nutrition/Amino Acids/Dextrose/ Fat Emulsion Intravenous 1,920 ml @ 80 mls/hr TPN CONT 08/30/19 22:00 08/31/19 21:59 DC 08/30/19 21:40 80 MLS/HR Potassium Chloride 80 meq/ Magnesium Sulfate 20 meq/ Multivitamins 10 ml/Chromium/ Copper/Manganese/ Seleni/Zn 1 ml/ Insulin Human Regular 15 unit/ Total Parenteral Nutrition/Amino Acids/Dextrose/ Fat Emulsion Intravenous 1,800 ml @ 75 mls/hr TPN CONT 09/18/19 22:00 09/19/19 21:59 DC 09/18/19 21:54 75 MLS/HR Potassium Chloride 90 meq/ Magnesium Sulfate 20 meq/ Multivitamins 10 ml/Chromium/ Copper/Manganese/ Seleni/Zn 1 ml/ Insulin Human Regular 15 unit/ Total Parenteral Nutrition/Amino Acids/Dextrose/ Fat Emulsion Intravenous 1,800 ml @ 75 mls/hr TPN CONT 09/07/19 22:00 09/08/19 21:59 DC 09/07/19 22:28 75 MLS/HR Potassium Chloride 90 meq/ Magnesium Sulfate 20 meq/ Multivitamins 10 ml/Chromium/ Copper/Manganese/ Seleni/Zn 1 ml/ Insulin Human Regular 20 unit/ Total Parenteral Nutrition/Amino Acids/Dextrose/ Fat Emulsion Intravenous 1,800 ml @ 75 mls/hr TPN CONT 09/21/19 22:00 09/22/19 21:59 DC 09/21/19 23:13 75 MLS/HR Potassium Chloride/Water 100 ml @ 100 mls/hr 1X ONCE 09/19/19 10:00 09/19/19 10:59 DC 09/19/19 10:15 100 MLS/HR Potassium Phosphate 20 mmol/ Sodium Chloride 106.6667 ml @ 51.667 m... 1X ONCE 07/13/19 13:00 07/13/19 15:03 DC 07/13/19 12:51 51.667 MLS/HR Potassium Acetate 30 meq/Magnesium Sulfate 20 meq/ Calcium Gluconate 10 meq/ Multivitamins 10 ml/Chromium/ Copper/Manganese/ Seleni/Zn 0.5 ml/ Insulin Human Regular 30 unit/ Potassium Chloride 30 meq/ Total Parenteral Nutrition/Amino Acids/Dextrose/ Fat Emulsion Intravenous 1,920 ml @ 80 mls/hr TPN CONT 08/19/19 22:00 08/20/19 21:59 DC 08/19/19 22:34 80 MLS/HR Potassium Acetate 40 meq/Magnesium Sulfate 5 meq/ Multivitamins 10 ml/Chromium/ Copper/Manganese/ Seleni/Zn 1 ml/ Insulin Human Regular 30 unit/ Total Parenteral Nutrition/Amino Acids/Dextrose/ Fat Emulsion Intravenous 1,920 ml @ 80 mls/hr TPN CONT 09/29/19 22:00 09/30/19 21:59 09/29/19 23:23 80 MLS/HR Potassium Acetate 55 meq/Magnesium Sulfate 20 meq/ Calcium Gluconate 10 meq/ Multivitamins 10 ml/Chromium/ Copper/Manganese/ Seleni/Zn 0.5 ml/ Insulin Human Regular 30 unit/ Total Parenteral Nutrition/Amino Acids/Dextrose/ Fat Emulsion Intravenous 1,920 ml @ 80 mls/hr TPN CONT 08/18/19 22:00 08/19/19 21:59 DC 08/19/19 01:00 80 MLS/HR Potassium Acetate 55 meq/Magnesium Sulfate 20 meq/ Calcium Gluconate 10 meq/ Multivitamins 10 ml/Chromium/ Copper/Manganese/ Seleni/Zn 0.5 ml/ Insulin Human Regular 35 unit/ Total Parenteral Nutrition/Amino Acids/Dextrose/ Fat Emulsion Intravenous 1,920 ml @ 80 mls/hr TPN CONT 08/16/19 22:00 08/17/19 21:59 DC 08/16/19 22:02 80 MLS/HR Potassium Acetate 60 meq/Magnesium Sulfate 5 meq/ Multivitamins 10 ml/Chromium/ Copper/Manganese/ Seleni/Zn 1 ml/ Insulin Human Regular 30 unit/ Total Parenteral Nutrition/Amino Acids/Dextrose/ Fat Emulsion Intravenous 1,920 ml @ 80 mls/hr TPN CONT 09/24/19 22:00 09/25/19 21:59 DC 09/24/19 21:54 80 MLS/HR Potassium Acetate 65 meq/Magnesium Sulfate 20 meq/ Calcium Gluconate 10 meq/ Multivitamins 10 ml/Chromium/ Copper/Manganese/ Seleni/Zn 0.5 ml/ Insulin Human Regular 30 unit/ Total Parenteral Nutrition/Amino Acids/Dextrose/ Fat Emulsion Intravenous 1,920 ml @ 80 mls/hr TPN CONT 08/17/19 22:00 08/18/19 21:59 DC 08/17/19 22:22 80 MLS/HR Potassium Acetate 80 meq/Magnesium Sulfate 5 meq/ Multivitamins 10 ml/Chromium/ Copper/Manganese/ Seleni/Zn 1 ml/ Insulin Human Regular 20 unit/ Total Parenteral Nutrition/Amino Acids/Dextrose/ Fat Emulsion Intravenous 1,920 ml @ 80 mls/hr TPN CONT 09/23/19 22:00 09/24/19 21:59 DC 09/23/19 21:59 80 MLS/HR Prochlorperazine Edisylate (Compazine) 5 mg PACU PRN PRN 08/15/19 07:00 08/16/19 06:59 DC Propofol 20 ml @ As Directed STK-MED ONCE 08/15/19 12:26 08/15/19 12:27 DC Ringer's Solution 1,000 ml @ 30 mls/hr Q24H 08/15/19 07:00 08/15/19 18:59 DC Rocuronium [place] (Zemuron) 50 mg STK-MED ONCE 08/15/19 10:56 08/15/19 10:57 DC Saliva Substitute (Biotene Moisturizing Mouth) 2 spray PRN Q15MIN PRN 09/08/19 11:00 Sevoflurane (Ultane) 60 ml STK-MED ONCE 08/15/19 12:26 08/15/19 12:27 DC Sodium Bicarbonate 50 meq/Sodium Chloride 1,050 ml @ 75 mls/hr Q14H 07/06/19 07:30 07/11/19 10:28 DC 07/10/19 21:10 75 MLS/HR Sodium Acetate 50 meq/Potassium Acetate 55 meq/ Magnesium Sulfate 20 meq/Calcium Gluconate 10 meq/ Multivitamins 10 ml/Chromium/ Copper/Manganese/ Seleni/Zn 0.5 ml/ Insulin Human Regular 35 unit/ Total Parenteral Nutrition/Amino Acids/Dextrose/ Fat Emulsion Intravenous 1,800 ml @ 75 mls/hr TPN CONT 08/13/19 22:00 08/14/19 21:59 DC 08/13/19 22:03 75 MLS/HR Sodium Bicarbonate (Sodium Bicarb Adult 8.4% Syr) 50 meq 1X ONCE 09/25/19 22:00 09/25/19 22:01 DC 09/25/19 21:47 50 MEQ Sodium Chloride 500 ml @ 500 mls/hr 1X ONCE 09/27/19 06:45 09/27/19 07:44 DC 09/27/19 06:39 500 MLS/HR Sodium Chloride (Normal Saline Flush) 3 ml QSHIFT PRN 08/15/19 13:45 Sodium Chloride 90 meq/Calcium Gluconate 10 meq/ Multivitamins 10 ml/Chromium/ Copper/Manganese/ Seleni/Zn 0.5 ml/ Total Parenteral Nutrition/Amino Acids/Dextrose/ Fat Emulsion Intravenous 1,512 ml @ 63 mls/hr TPN CONT 07/06/19 22:00 07/07/19 21:59 DC 07/06/19 22:06 63 MLS/HR Sodium Chloride 90 meq/Calcium Gluconate 10 meq/ Multivitamins 10 ml/Chromium/ Copper/Manganese/ Seleni/Zn 1 ml/ Total Parenteral Nutrition/Amino Acids/Dextrose/ Fat Emulsion Intravenous 55.005 ml @ 2.292 mls/hr TPN CONT 07/06/19 22:00 07/06/19 12:33 DC Sodium Chloride 90 meq/Magnesium Sulfate 10 meq/ Calcium Gluconate 20 meq/ Multivitamins 10 ml/Chromium/ Copper/Manganese/ Seleni/Zn 0.5 ml/ Total Parenteral Nutrition/Amino Acids/Dextrose/ Fat Emulsion Intravenous 1,512 ml @ 63 mls/hr TPN CONT 07/07/19 22:00 07/08/19 21:59 DC 07/07/19 22:25 63 MLS/HR Sodium Chloride 90 meq/Magnesium Sulfate 12 meq/ Calcium Gluconate 15 meq/ Multivitamins 10 ml/Chromium/ Copper/Manganese/ Seleni/Zn 0.5 ml/ Insulin Human Regular 25 unit/ Total Parenteral Nutrition/Amino Acids/Dextrose/ Fat Emulsion Intravenous 1,400 ml @ 58.333 mls/ hr TPN CONT 07/27/19 22:00 07/28/19 21:59 DC 07/27/19 21:41 58.333 MLS/HR Sodium Chloride 90 meq/Potassium Chloride 15 meq/ Magnesium Sulfate 12 meq/Calcium Gluconate 15 meq/ Multivitamins 10 ml/Chromium/ Copper/Manganese/ Seleni/Zn 0.5 ml/ Insulin Human Regular 25 unit/ Total Parenteral Nutrition/Amino Acids/Dextrose/ Fat Emulsion Intravenous 1,400 ml @ 58.333 mls/ hr TPN CONT 07/26/19 22:00 07/27/19 21:59 DC 07/26/19 22:13 58.333 MLS/HR Sodium Chloride 90 meq/Potassium Chloride 15 meq/ Potassium Phosphate 10 mmol/ Magnesium Sulfate 8 meq/Calcium Gluconate 15 meq/ Multivitamins 10 ml/Chromium/ Copper/Manganese/ Seleni/Zn 0.5 ml/ Insulin Human Regular 25 unit/ Total Parenteral Nutrition/Amino Acids/Dextrose/ Fat Emulsion Intravenous 1,400 ml @ 58.333 mls/ hr TPN CONT 07/24/19 22:00 07/25/19 21:59 DC 07/24/19 21:20 58.333 MLS/HR Sodium Chloride 90 meq/Potassium Chloride 15 meq/ Potassium Phosphate 10 mmol/ Magnesium Sulfate 10 meq/Calcium Gluconate 20 meq/ Multivitamins 10 ml/Chromium/ Copper/Manganese/ Seleni/Zn 0.5 ml/ Total Parenteral Nutrition/Amino Acids/Dextrose/ Fat Emulsion Intravenous 1,400 ml @ 58.333 mls/ hr TPN CONT 07/11/19 22:00 07/12/19 21:59 DC 07/11/19 21:42 58.333 MLS/HR Sodium Chloride 90 meq/Potassium Chloride 15 meq/ Potassium Phosphate 10 mmol/ Magnesium Sulfate 12 meq/Calcium Gluconate 15 meq/ Multivitamins 10 ml/Chromium/ Copper/Manganese/ Seleni/Zn 0.5 ml/ Insulin Human Regular 25 unit/ Total Parenteral Nutrition/Amino Acids/Dextrose/ Fat Emulsion Intravenous 1,400 ml @ 58.333 mls/ hr TPN CONT 07/25/19 22:00 07/26/19 21:59 DC 07/25/19 22:24 58.333 MLS/HR Sodium Chloride 90 meq/Potassium Chloride 15 meq/ Potassium Phosphate 15 mmol/ Magnesium Sulfate 10 meq/Calcium Gluconate 15 meq/ Multivitamins 10 ml/Chromium/ Copper/Manganese/ Seleni/Zn 0.5 ml/ Total Parenteral Nutrition/Amino Acids/Dextrose/ Fat Emulsion Intravenous 1,400 ml @ 58.333 mls/ hr TPN CONT 07/12/19 22:00 07/13/19 21:59 DC 07/12/19 22:17 58.333 MLS/HR Sodium Chloride 90 meq/Potassium Chloride 15 meq/ Potassium Phosphate 15 mmol/ Magnesium Sulfate 10 meq/Calcium Gluconate 20 meq/ Multivitamins 10 ml/Chromium/ Copper/Manganese/ Seleni/Zn 0.5 ml/ Total Parenteral Nutrition/Amino Acids/Dextrose/ Fat Emulsion Intravenous 1,200 ml @ 50 mls/hr TPN CONT 07/10/19 22:00 07/10/19 14:17 DC Sodium Chloride 90 meq/Potassium Chloride 15 meq/ Potassium Phosphate 18 mmol/ Magnesium Sulfate 8 meq/Calcium Gluconate 15 meq/ Multivitamins 10 ml/Chromium/ Copper/Manganese/ Seleni/Zn 0.5 ml/ Insulin Human Regular 10 unit/ Total Parenteral Nutrition/Amino Acids/Dextrose/ Fat Emulsion Intravenous 1,400 ml @ 58.333 mls/ hr TPN CONT 07/15/19 22:00 07/16/19 21:59 DC 07/15/19 21:43 58.333 MLS/HR Sodium Chloride 90 meq/Potassium Chloride 15 meq/ Potassium Phosphate 18 mmol/ Magnesium Sulfate 8 meq/Calcium Gluconate 15 meq/ Multivitamins 10 ml/Chromium/ Copper/Manganese/ Seleni/Zn 0.5 ml/ Insulin Human Regular 15 unit/ Total Parenteral Nutrition/Amino Acids/Dextrose/ Fat Emulsion Intravenous 1,400 ml @ 58.333 mls/ hr TPN CONT 07/18/19 22:00 07/19/19 21:59 DC 07/18/19 21:47 58.333 MLS/HR Sodium Chloride 90 meq/Potassium Chloride 15 meq/ Potassium Phosphate 18 mmol/ Magnesium Sulfate 8 meq/Calcium Gluconate 15 meq/ Multivitamins 10 ml/Chromium/ Copper/Manganese/ Seleni/Zn 0.5 ml/ Insulin Human Regular 20 unit/ Total Parenteral Nutrition/Amino Acids/Dextrose/ Fat Emulsion Intravenous 1,400 ml @ 58.333 mls/ hr TPN CONT 07/21/19 22:00 07/22/19 21:59 DC 07/21/19 22:45 58.333 MLS/HR Sodium Chloride 90 meq/Potassium Chloride 15 meq/ Potassium Phosphate 18 mmol/ Magnesium Sulfate 8 meq/Calcium Gluconate 15 meq/ Multivitamins 10 ml/Chromium/ Copper/Manganese/ Seleni/Zn 0.5 ml/ Total Parenteral Nutrition/Amino Acids/Dextrose/ Fat Emulsion Intravenous 1,400 ml @ 58.333 mls/ hr TPN CONT 07/14/19 22:00 07/15/19 21:59 DC 07/14/19 22:00 58.333 MLS/HR Sodium Chloride 90 meq/Potassium Phosphate 15 mmol/ Magnesium Sulfate 12 meq/Calcium Gluconate 15 meq/ Multivitamins 10 ml/Chromium/ Copper/Manganese/ Seleni/Zn 0.5 ml/ Insulin Human Regular 30 unit/ Total Parenteral Nutrition/Amino Acids/Dextrose/ Fat Emulsion Intravenous 1,400 ml @ 58.333 mls/ hr TPN CONT 07/29/19 22:00 07/30/19 21:59 DC 07/29/19 21:49 58.333 MLS/HR Sodium Chloride 90 meq/Potassium Phosphate 15 mmol/ Magnesium Sulfate 12 meq/Calcium Gluconate 15 meq/ Multivitamins 10 ml/Chromium/ Copper/Manganese/ Seleni/Zn 0.5 ml/ Insulin Human Regular 40 unit/ Total Parenteral Nutrition/Amino Acids/Dextrose/ Fat Emulsion Intravenous 1,400 ml @ 58.333 mls/ hr TPN CONT 07/30/19 22:00 07/31/19 21:59 DC 07/30/19 21:21 58.333 MLS/HR Sodium Chloride 90 meq/Potassium Phosphate 19 mmol/ Magnesium Sulfate 12 meq/Calcium Gluconate 15 meq/ Multivitamins 10 ml/Chromium/ Copper/Manganese/ Seleni/Zn 0.5 ml/ Insulin Human Regular 40 unit/ Total Parenteral Nutrition/Amino Acids/Dextrose/ Fat Emulsion Intravenous 1,400 ml @ 58.333 mls/ hr TPN CONT 07/31/19 22:00 08/01/19 21:59 DC 07/31/19 21:54 58.333 MLS/HR Sodium Chloride 90 meq/Potassium Phosphate 5 mmol/ Magnesium Sulfate 12 meq/Calcium Gluconate 15 meq/ Multivitamins 10 ml/Chromium/ Copper/Manganese/ Seleni/Zn 0.5 ml/ Insulin Human Regular 30 unit/ Total Parenteral Nutrition/Amino Acids/Dextrose/ Fat Emulsion Intravenous 1,400 ml @ 58.333 mls/ hr TPN CONT 07/28/19 22:00 07/29/19 21:59 DC 07/28/19 22:08 58.333 MLS/HR Sodium Chloride 100 meq/Potassium Chloride 40 meq/ Magnesium Sulfate 15 meq/Calcium Gluconate 15 meq/ Multivitamins 10 ml/Chromium/ Copper/Manganese/ Seleni/Zn 0.5 ml/ Insulin Human Regular 35 unit/ Total Parenteral Nutrition/Amino Acids/Dextrose/ Fat Emulsion Intravenous 1,400 ml @ 58.333 mls/ hr TPN CONT 08/07/19 22:00 08/08/19 21:59 DC 08/07/19 22:46 58.333 MLS/HR Sodium Chloride 100 meq/Potassium Chloride 40 meq/ Magnesium Sulfate 20 meq/Calcium Gluconate 10 meq/ Multivitamins 10 ml/Chromium/ Copper/Manganese/ Seleni/Zn 0.5 ml/ Insulin Human Regular 35 unit/ Total Parenteral Nutrition/Amino Acids/Dextrose/ Fat Emulsion Intravenous 1,400 ml @ 58.333 mls/ hr TPN CONT 08/11/19 22:00 08/12/19 21:59 DC 08/12/19 00:06 58.333 MLS/HR Sodium Chloride 100 meq/Potassium Chloride 40 meq/ Magnesium Sulfate 20 meq/Calcium Gluconate 15 meq/ Multivitamins 10 ml/Chromium/ Copper/Manganese/ Seleni/Zn 0.5 ml/ Insulin Human Regular 35 unit/ Total Parenteral Nutrition/Amino Acids/Dextrose/ Fat Emulsion Intravenous 1,400 ml @ 58.333 mls/ hr TPN CONT 08/10/19 22:00 08/11/19 21:59 DC 08/10/19 22:27 58.333 MLS/HR Sodium Chloride 100 meq/Potassium Phosphate 10 mmol/ Magnesium Sulfate 12 meq/Calcium Gluconate 15 meq/ Multivitamins 10 ml/Chromium/ Copper/Manganese/ Seleni/Zn 0.5 ml/ Insulin Human Regular 35 unit/ Potassium Chloride 20 meq/ Total Parenteral Nutrition/Amino Acids/Dextrose/ Fat Emulsion Intravenous 1,400 ml @ 58.333 mls/ hr TPN CONT 08/04/19 22:00 08/05/19 21:59 DC 08/04/19 22:10 58.333 MLS/HR Sodium Chloride 100 meq/Potassium Phosphate 19 mmol/ Magnesium Sulfate 12 meq/Calcium Gluconate 15 meq/ Multivitamins 10 ml/Chromium/ Copper/Manganese/ Seleni/Zn 0.5 ml/ Insulin Human Regular 40 unit/ Potassium Chloride 20 meq/ Total Parenteral Nutrition/Amino Acids/Dextrose/ Fat Emulsion Intravenous 1,400 ml @ 58.333 mls/ hr TPN CONT 08/03/19 22:00 08/04/19 21:59 DC 08/03/19 21:20 58.333 MLS/HR Sodium Chloride 100 meq/Potassium Phosphate 5 mmol/ Magnesium Sulfate 12 meq/Calcium Gluconate 15 meq/ Multivitamins 10 ml/Chromium/ Copper/Manganese/ Seleni/Zn 0.5 ml/ Insulin Human Regular 35 unit/ Potassium Chloride 20 meq/ Total Parenteral Nutrition/Amino Acids/Dextrose/ Fat Emulsion Intravenous 1,400 ml @ 58.333 mls/ hr TPN CONT 08/05/19 22:00 08/06/19 21:59 DC 08/05/19 22:59 58.333 MLS/HR Succinylcholine Chloride (Anectine) 120 mg 1X ONCE 07/11/19 08:30 07/11/19 08:31 DC 07/11/19 08:34 120 MG Vecuronium [place] (Norcuron Bolus) 6 mg PRN Q6HRS PRN 08/25/19 19:15 08/25/19 19:35 DC Labs: Lab Laboratory Tests Test 09/29/19 11:32 09/30/19 06:05 09/30/19 06:18 Glucose (Fingerstick) 163 mg/dL (70-99) 165 mg/dL (70-99) White Blood Count 8.7 x10^3/uL (4.0-11.0) Red Blood Count 2.56 x10^6/uL (3.50-5.40) Hemoglobin 7.6 g/dL (12.0-15.5) Hematocrit 22.9 % (36.0-47.0) Mean Corpuscular Volume 90 fL (79-100) Mean Corpuscular Hemoglobin 30 pg (25-35) Mean Corpuscular Hemoglobin Concent 33 g/dL (31-37) Red Cell Distribution Width 16.6 % (11.5-14.5) Platelet Count 349 x10^3/uL (140-400) Neutrophils (%) (Auto) 74 % (31-73) Lymphocytes (%) (Auto) 18 % (24-48) Monocytes (%) (Auto) 6 % (0-9) Eosinophils (%) (Auto) 1 % (0-3) Basophils (%) (Auto) 0 % (0-3) Neutrophils # (Auto) 6.5 x10^3/uL (1.8-7.7) Lymphocytes # (Auto) 1.6 x10^3/uL (1.0-4.8) Monocytes # (Auto) 0.6 x10^3/uL (0.0-1.1) Eosinophils # (Auto) 0.1 x10^3/uL (0.0-0.7) Basophils # (Auto) 0.0 x10^3/uL (0.0-0.2) Sodium Level 146 mmol/L (136-145) Potassium Level 3.9 mmol/L (3.5-5.1) Chloride Level 114 mmol/L (98-107) Carbon Dioxide Level 25 mmol/L (21-32) Anion Gap 7 (6-14) Blood Urea Nitrogen 29 mg/dL (7-20) Creatinine 0.8 mg/dL (0.6-1.0) Estimated GFR (Cockcroft-Gault) 76.2 BUN/Creatinine Ratio 36 (6-20) Glucose Level 176 mg/dL (70-99) Calcium Level 9.8 mg/dL (8.5-10.1) Total Bilirubin 0.4 mg/dL (0.2-1.0) Aspartate Amino Transf (AST/SGOT) 22 U/L (15-37) Alanine Aminotransferase (ALT/SGPT) 16 U/L (14-59) Alkaline Phosphatase 83 U/L (46-116) Total Protein 5.1 g/dL (6.4-8.2) Albumin 1.1 g/dL (3.4-5.0) Albumin/Globulin Ratio 0.3 (1.0-1.7) Micro NEG ALEXANDRA 56 PSEUDOMONAS AERUGINOSA ANTIBIOTIC RESULT INTERPRETATION AMIKACIN <=16 S AZTREONAM >16 R CEFTAZIDIME >16 R CIPROFLOXACIN <=0.25 S CEFEPIME 16 I GENTAMICIN <=2 S LEVOFLOXACIN <=0.5 S CONTINUED ON NEXT PAGE RUN DATE: 09/28/19 [facility] *LIVE* PAGE 2 RUN TIME: 112 Specimen Inquiry SPEC: [id number] PATIENT: SCOTT CUELLAR [id number] (Continued) Procedure Result ANTIMICROBIAL SUSCEPTIBILITY Preliminary (continued) MEROPENEM <=1 S PIPERACILLIN/TAZOBACTAM 64 S TOBRAMYCIN <=2 S Unless otherwise specified, Testing Performed by: [address] [address] For Inquires, the Physician may contact the Microbiology department at [phone] Objective: Assessment: Patient with prolonged hospitalization Multiple medical problems Multiple surgical procedures Fever improving Acute pancreatitis with persistent necrosis CT a/p 07/27 Increased ascites. 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 Sequela of pancreatitis with extensive pseudocysts again demonstrated, the right-sided collections are slightly larger since the prior exam, the left-sided collections are stable. 09/24 fluid cult PSAE (MDRO),yeast moderate Cholelithiasis with thickening of the gallbladder wall. Leucocytosis JUANA,Hyperkalemia, Metabolic acidosis off dialysis Acute hypoxic resp failure ,bilateral pleural effusion and atelectasis hypocalcemia Prediabetes HTN s/p trach Plan: Plan of Care Continue meropenem, has MDRP PSAE September 24 cont micafungin September 24 Follow-up cultures fluid for yeast Monitor a.m. labs General surgery following Monitor drain output Maintain aspiration precaution Supportive care Prognosis poor Critically ill Maintain contact isolation for MDRO Pseudomonas D/w nursing YUNIOR JONES MD Sep 30, 2019 07:57
--- NOTE | 2019-09-30 08:35 | PDOC ---
PROGRESS NOTES Chief Complaint Chief Complaint A/P: Acute hypoxic Respiratory failure requiring mechanical ventilation (now extubated for several days but still with tracheostomy) Tracheostomy bilateral pleural effusions/pulm edema Sepsis Severe Acute gallstone pancreatitis (not a surgical candidate at this time) with necrosis Acute kidney failure now requiring dialysis Salpingitis Gallstones (Calculus of gallbladder with acute cholecystitis without obstruction) HTN Leukocytosis Hypoxia Uterine fibroid Intractable pain Intractable nausea Covid 19 negative. Acute on chronic anemia EEG: No seizure activityFever - better currently - intermittent could be from underlying pancreatitis blood cults 08/21 - neg so far ? Ileus with vomiting Abd distention - U/S and CT reviewed s/p 0.4 L of opaque, debris-containing ascites was removed 08/23 Acute pancreatitis with persistent necrosis - 08/14 status post KAYLIN drain placement + C paropsilosis. s/p additional drains Anemia - S/p PRBCs Cholelithiasis with thickening of the gallbladder wall. Leucocytosis improving JUANA, hyperkalemia, Metabolic acidosis off dialysis Acute hypoxic resp failure ,bilateral pleural effusion and atelectasis hypocalcemia Prediabetes HTN s/p trach ESRD on HD Hyperglycemia FEN - PPX - SCDs, off lovenox currently FULL CODE Dispo - ICU, critically ill CC time 49 minutes History of Present Illness History of Present Illness 09/25: IR placed drain on 09/24. 4u PRBC after Hb drop. Hb 8.8 today. Off Levophed this morning. T-max 100.3. Much more lethargic today. CXR with left sided dif fuse infiltrates. 09/26: Tachycardic overnight into the 140s. NGT clamped. On BIPAP currently. Drains with serosanguinous discharge. WBC 8, Tmax 99.6F. 09/27: Seen on trach shield in ICU. Hypertensive and tachycardic. Labs stable. blood stained drainage from drains. Afebrile. 09/28: Seen on trach shield in ICU. She is a bit confused, drowsy, but when sitting up is conversational and confusion somewhat clears. She is asking for more pain medication. Stable drains, still very tachy.Na 147 Patient vomited overnight. Aspirated. Tried to pull her trach out, she was told she would without her trach, she said "I know, I just want to go home". Hb 7.6. Afebrile, still very tachycardic. 09/23/2019 Patient seen and examined on telemetry floor today This morning I had a couple of discussions with case management The issue is the patient will not wear her trach cap Without that she cannot advance her diet and is currently supposed to be on honey thick liquids I was going to talk to the patient about wearing her trach But when I arrived to the room she was lying on the floor with several nurses and therapist around Apparently she did walk to the end of the meyer then back and then collapsed onto the floor She had a bowel movement when this all happened Appears to be critically ill again Very shaky tremulous anxious has a stare in her eyes We got her back in bed I am extremely concerned about her long-term prognosis again 09/22/2019 Patient seen and examined in the ICU She remains critically ill is is extremely weak Chart reviewed Discussed with RN We decided to try some Prozac as she does seem depressed On IV TPN Still has NG tube 09/21/2019 Patient seen and examined in the ICU She remains critically ill We have been trying to hold off on her Ativan for the past 24 hours She is a little more awake but shaky and agitated and anxious seems depressed Discussed with RN Chart reviewed 09/20/2019 Patient seen and examined in the ICU She is a little more alert today but still quite ill Appears clammy and pale and depressed/anxious Discussed with RN Chart reviewed 09/19/2019 Patient seen and examined in the ICU She appears extremely ill She is tachypneic at 35 respirations per minute and tachycardic at 132 bpm She is extremely encephalopathic and shaky She appears clammy Chart reviewed Discussed with RN Prognosis extremely guarded at best 09/18/2019 Patient still in ICU Resting with no apparent distress Chart reviewed 09/17/2019 Patient seen and examined in the ICU She is wiping her face with a cough Discussed with RN Chart reviewed We hope to get her out of the ICU later today if possible 09/16/2019 Patient seen and examined in the ICU once again She is back on NG suction On IV Zosyn Has IV TPN Sedated with Precedex but anxious still Appears somewhat clammy and pale Chart reviewed Discussed with RN She remains critically ill 09/15/2019 Patient seen and examined in the ICU She has an NG that is clamped we are hoping to start some clear liquids but she looks quite ill She is on IV TPN Meropenem changed to IV Zosyn (agree) She has Lind to bedside drainage She is semi-sedated with Precedex Chart reviewed Discussed with RN She remains critically ill Seen bedside. Hb 8. She was just a bit hypoxic, had a mucous plug suctioned. Able to vocalize well with speaking valve, tells me we are being very hard on her and she would like to be drugged back to sleep. She wants to wake up and feel better. On trach shield, T max 100.4. afebrile this a.m. 09/13/2019 Patient seen and examined in the ICU She is up in the chair very frail trying to talk a little shaky Discussed with RN Chart reviewed 09/12/2019 Patient seen and examined in the ICU Patient up in the chair Having a severe coughing episode with a lot of phlegm coming out of her tracheostomy Discussed with RN Discussed with physical therapy Chart reviewed 09/10,. feels well, has been out of room in wheelchair no complaint, still weak, some with not wanting to wear her valve on trach cont other, may be able to work with speech tomorrow, videoswallow OK to try, 09/09, anxiety is up today, she dislikes the valve still, shower and outside today . 09/08 she doesnt want to wear her passy-fantasma valve, discussed str and plan with her. speech following, needs swallow study, but needs to wear her valve longer, cont current able to walk some, walker 09/07 stronger, better, we discussed better oral care she would like to try swallow study, wants to try to eat, speech is following 09/07/2019 She remains in the ICU sitting up and working with OT, getting better if limit pain meds, may do better off the vent, Nurses trying to suction her, that is also improved, Chart reviewed 09/06/2019 Patient seen and examined in the ICU She had an episode yesterday of tachycardia and severe agitation we gave her some Ativan After that she seemed to have stroke symptoms but now that the Ativan has wore off her stroke symptoms have resolved She is on IV meropenem and daptomycin and micafungin Chart reviewed Discussed with RN Patient is still critically ill BRIEF OPERATIVE NOTE Pre-Op Diagnosis Pancreatitis with pseudocysts, suspected infection Post-Op Diagnosis same Procedure Performed CT abdominal Drains x 3 Surgeon Tesfaye Anesthesia Type: Conscious Sedation Findings 3 abdominal drains, 14F, with turbid pancreatic fluid and necrotic debris in each. Complications No immediate 08/26: Patient today somewhat restless and having bilious secretions from ET tube, imaging studies ordered, discussed with service loss control consultant. Pretty poor prognosis, hopefully is not a fistula, poor surgical candidate. 08/27: Imaging with no acute events, she seems more stable today compared to yesterday. Encouraged as much activity as possible patient at high risk for severe depression. Vitals Vitals Vital Signs Date Time Temp Pulse Resp B/P (MAP) Pulse Ox O2 Delivery O2 Flow Rate FiO2 09/30/19 08:26 98.7 124 42 147/75 98.7 09/30/19 07:42 Trach Collar 10.0 09/30/19 07:00 100 Physical Exam Physical Exam GENERAL: Lethargic, opens eyes transiently HEENT: NGT in place. Oral mucosa dry NECK: Tracheostomy LUNGS: Diminished aeration bases, no accessory muscle use HEART: S1, S2, tachy, regular ABDOMEN: Mild distention, bowel sounds present, soft, grimaces to palpation Right lateral side drainage bag, 3 drains with bloodstained drainage : Lind ( 09/24) EXTREMITIES: Trace edema .no cyanosis SKIN: no signs of gen rash VIDEO MANAGER: Lethargic very weak LUE-PICC (09/15) without signs of complications General: Alert, Cooperative, No acute distress Heart: Regular rate, Normal S1, Normal S2, No murmurs, Gallops Lungs: Other (diminshed in bases, Rhonci in LLL) Abdomen: Soft, Other (drains with brownish drainage, c/w pancreatic necrosis) Extremities: No clubbing, No cyanosis, No edema, Normal pulses, No tenderness/swelling Skin: Other (warm, dry) Labs LABS Laboratory Tests Test 09/29/19 11:32 09/30/19 06:05 09/30/19 06:18 Glucose (Fingerstick) 163 mg/dL (70-99) 165 mg/dL (70-99) White Blood Count 8.7 x10^3/uL (4.0-11.0) Red Blood Count 2.56 x10^6/uL (3.50-5.40) Hemoglobin 7.6 g/dL (12.0-15.5) Hematocrit 22.9 % (36.0-47.0) Mean Corpuscular Volume 90 fL (79-100) Mean Corpuscular Hemoglobin 30 pg (25-35) Mean Corpuscular Hemoglobin Concent 33 g/dL (31-37) Red Cell Distribution Width 16.6 % (11.5-14.5) Platelet Count 349 x10^3/uL (140-400) Neutrophils (%) (Auto) 74 % (31-73) Lymphocytes (%) (Auto) 18 % (24-48) Monocytes (%) (Auto) 6 % (0-9) Eosinophils (%) (Auto) 1 % (0-3) Basophils (%) (Auto) 0 % (0-3) Neutrophils # (Auto) 6.5 x10^3/uL (1.8-7.7) Lymphocytes # (Auto) 1.6 x10^3/uL (1.0-4.8) Monocytes # (Auto) 0.6 x10^3/uL (0.0-1.1) Eosinophils # (Auto) 0.1 x10^3/uL (0.0-0.7) Basophils # (Auto) 0.0 x10^3/uL (0.0-0.2) Sodium Level 146 mmol/L (136-145) Potassium Level 3.9 mmol/L (3.5-5.1) Chloride Level 114 mmol/L (98-107) Carbon Dioxide Level 25 mmol/L (21-32) Anion Gap 7 (6-14) Blood Urea Nitrogen 29 mg/dL (7-20) Creatinine 0.8 mg/dL (0.6-1.0) Estimated GFR (Cockcroft-Gault) 76.2 BUN/Creatinine Ratio 36 (6-20) Glucose Level 176 mg/dL (70-99) Calcium Level 9.8 mg/dL (8.5-10.1) Total Bilirubin 0.4 mg/dL (0.2-1.0) Aspartate Amino Transf (AST/SGOT) 22 U/L (15-37) Alanine Aminotransferase (ALT/SGPT) 16 U/L (14-59) Alkaline Phosphatase 83 U/L (46-116) Total Protein 5.1 g/dL (6.4-8.2) Albumin 1.1 g/dL (3.4-5.0) Albumin/Globulin Ratio 0.3 (1.0-1.7) Assessment and Plan Assessmemt and Plan Problems Medical Problems: (1) Acute pancreatitis Status: Acute (2) Cholelithiasis Status: Acute Comment Review of Relevant I have reviewed the following items kolby (where applicable) has been applied. Labs Laboratory Tests Test 09/28/19 18:37 09/28/19 23:30 09/29/19 06:02 09/29/19 06:15 Glucose (Fingerstick) 152 mg/dL (70-99) 145 mg/dL (70-99) 167 mg/dL (70-99) White Blood Count 9.8 x10^3/uL (4.0-11.0) Red Blood Count 2.90 x10^6/uL (3.50-5.40) Hemoglobin 8.6 g/dL (12.0-15.5) Hematocrit 26.2 % (36.0-47.0) Mean Corpuscular Volume 91 fL (79-100) Mean Corpuscular Hemoglobin 30 pg (25-35) Mean Corpuscular Hemoglobin Concent 33 g/dL (31-37) Red Cell Distribution Width 17.4 % (11.5-14.5) Platelet Count 335 x10^3/uL (140-400) Neutrophils (%) (Auto) 70 % (31-73) Lymphocytes (%) (Auto) 24 % (24-48) Monocytes (%) (Auto) 5 % (0-9) Eosinophils (%) (Auto) 1 % (0-3) Basophils (%) (Auto) 0 % (0-3) Neutrophils # (Auto) 6.9 x10^3/uL (1.8-7.7) Lymphocytes # (Auto) 2.4 x10^3/uL (1.0-4.8) Monocytes # (Auto) 0.5 x10^3/uL (0.0-1.1) Eosinophils # (Auto) 0.1 x10^3/uL (0.0-0.7) Basophils # (Auto) 0.0 x10^3/uL (0.0-0.2) Sodium Level 147 mmol/L (136-145) Potassium Level 4.1 mmol/L (3.5-5.1) Chloride Level 115 mmol/L (98-107) Carbon Dioxide Level 22 mmol/L (21-32) Anion Gap 10 (6-14) Blood Urea Nitrogen 32 mg/dL (7-20) Creatinine 0.9 mg/dL (0.6-1.0) Estimated GFR (Cockcroft-Gault) 66.5 BUN/Creatinine Ratio 36 (6-20) Glucose Level 181 mg/dL (70-99) Calcium Level 9.9 mg/dL (8.5-10.1) Phosphorus Level 4.0 mg/dL (2.6-4.7) Magnesium Level 1.8 mg/dL (1.8-2.4) Total Bilirubin 0.4 mg/dL (0.2-1.0) Aspartate Amino Transf (AST/SGOT) 21 U/L (15-37) Alanine Aminotransferase (ALT/SGPT) 17 U/L (14-59) Alkaline Phosphatase 91 U/L (46-116) Total Protein 5.2 g/dL (6.4-8.2) Albumin 1.3 g/dL (3.4-5.0) Albumin/Globulin Ratio 0.3 (1.0-1.7) Triglycerides Level 203 mg/dL (0-150) Test 09/29/19 11:32 09/30/19 06:05 09/30/19 06:18 Glucose (Fingerstick) 163 mg/dL (70-99) 165 mg/dL (70-99) White Blood Count 8.7 x10^3/uL (4.0-11.0) Red Blood Count 2.56 x10^6/uL (3.50-5.40) Hemoglobin 7.6 g/dL (12.0-15.5) Hematocrit 22.9 % (36.0-47.0) Mean Corpuscular Volume 90 fL (79-100) Mean Corpuscular Hemoglobin 30 pg (25-35) Mean Corpuscular Hemoglobin Concent 33 g/dL (31-37) Red Cell Distribution Width 16.6 % (11.5-14.5) Platelet Count 349 x10^3/uL (140-400) Neutrophils (%) (Auto) 74 % (31-73) Lymphocytes (%) (Auto) 18 % (24-48) Monocytes (%) (Auto) 6 % (0-9) Eosinophils (%) (Auto) 1 % (0-3) Basophils (%) (Auto) 0 % (0-3) Neutrophils # (Auto) 6.5 x10^3/uL (1.8-7.7) Lymphocytes # (Auto) 1.6 x10^3/uL (1.0-4.8) Monocytes # (Auto) 0.6 x10^3/uL (0.0-1.1) Eosinophils # (Auto) 0.1 x10^3/uL (0.0-0.7) Basophils # (Auto) 0.0 x10^3/uL (0.0-0.2) Sodium Level 146 mmol/L (136-145) Potassium Level 3.9 mmol/L (3.5-5.1) Chloride Level 114 mmol/L (98-107) Carbon Dioxide Level 25 mmol/L (21-32) Anion Gap 7 (6-14) Blood Urea Nitrogen 29 mg/dL (7-20) Creatinine 0.8 mg/dL (0.6-1.0) Estimated GFR (Cockcroft-Gault) 76.2 BUN/Creatinine Ratio 36 (6-20) Glucose Level 176 mg/dL (70-99) Calcium Level 9.8 mg/dL (8.5-10.1) Total Bilirubin 0.4 mg/dL (0.2-1.0) Aspartate Amino Transf (AST/SGOT) 22 U/L (15-37) Alanine Aminotransferase (ALT/SGPT) 16 U/L (14-59) Alkaline Phosphatase 83 U/L (46-116) Total Protein 5.1 g/dL (6.4-8.2) Albumin 1.1 g/dL (3.4-5.0) Albumin/Globulin Ratio 0.3 (1.0-1.7) Laboratory Tests Test 09/29/19 11:32 09/30/19 06:05 09/30/19 06:18 Glucose (Fingerstick) 163 mg/dL (70-99) 165 mg/dL (70-99) White Blood Count 8.7 x10^3/uL (4.0-11.0) Red Blood Count 2.56 x10^6/uL (3.50-5.40) Hemoglobin 7.6 g/dL (12.0-15.5) Hematocrit 22.9 % (36.0-47.0) Mean Corpuscular Volume 90 fL (79-100) Mean Corpuscular Hemoglobin 30 pg (25-35) Mean Corpuscular Hemoglobin Concent 33 g/dL (31-37) Red Cell Distribution Width 16.6 % (11.5-14.5) Platelet Count 349 x10^3/uL (140-400) Neutrophils (%) (Auto) 74 % (31-73) Lymphocytes (%) (Auto) 18 % (24-48) Monocytes (%) (Auto) 6 % (0-9) Eosinophils (%) (Auto) 1 % (0-3) Basophils (%) (Auto) 0 % (0-3) Neutrophils # (Auto) 6.5 x10^3/uL (1.8-7.7) Lymphocytes # (Auto) 1.6 x10^3/uL (1.0-4.8) Monocytes # (Auto) 0.6 x10^3/uL (0.0-1.1) Eosinophils # (Auto) 0.1 x10^3/uL (0.0-0.7) Basophils # (Auto) 0.0 x10^3/uL (0.0-0.2) Sodium Level 146 mmol/L (136-145) Potassium Level 3.9 mmol/L (3.5-5.1) Chloride Level 114 mmol/L (98-107) Carbon Dioxide Level 25 mmol/L (21-32) Anion Gap 7 (6-14) Blood Urea Nitrogen 29 mg/dL (7-20) Creatinine 0.8 mg/dL (0.6-1.0) Estimated GFR (Cockcroft-Gault) 76.2 BUN/Creatinine Ratio 36 (6-20) Glucose Level 176 mg/dL (70-99) Calcium Level 9.8 mg/dL (8.5-10.1) Total Bilirubin 0.4 mg/dL (0.2-1.0) Aspartate Amino Transf (AST/SGOT) 22 U/L (15-37) Alanine Aminotransferase (ALT/SGPT) 16 U/L (14-59) Alkaline Phosphatase 83 U/L (46-116) Total Protein 5.1 g/dL (6.4-8.2) Albumin 1.1 g/dL (3.4-5.0) Albumin/Globulin Ratio 0.3 (1.0-1.7) Microbiology 09/25/19 Gram Stain - Final, Resulted 09/25/19 Aerobic and Anaerobic Culture - Preliminary, Resulted 09/25/19 Antimicrobic Susceptibility - Preliminary, Resulted 09/25/19 Blood Culture - Preliminary, Resulted NO GROWTH AFTER 4 DAYS 09/25/19 Urine Culture - Final, Complete 09/17/19 Gram Stain - Final, Complete 09/17/19 Aerobic Culture - Final, Complete Medications Current Medications Sodium Chloride 1,000 ml @ 1,000 mls/hr Q1H IV Last administered on 07/04/19at 03:00; Start 07/04/19 at 03:00; Stop 07/04/19 at 03:59; Status DC Ondansetron HCl (Zofran) 4 mg 1X ONCE IVP Last administered on 07/04/19at 03:27; Start 07/04/19 at 03:00; Stop 07/04/19 at 03:01; Status DC Morphine Sulfate (Morphine Sulfate) 4 mg 1X ONCE IV ; Start 07/04/19 at 03:00; Stop 07/04/19 at 03:01; Status Cancel Ketorolac Tromethamine (Toradol 30mg Vial) 30 mg 1X ONCE IV Last administered on 07/04/19at 02:54; Start 07/04/19 at 03:00; Stop 07/04/19 at 03:01; Status DC Fentanyl Citrate (Fentanyl 2ml Vial) 25 mcg 1X ONCE IVP Last administered on 07/04/19at 03:23; Start 07/04/19 at 03:30; Stop 07/04/19 at 03:31; Status DC Fentanyl Citrate (Fentanyl 2ml Vial) 100 mcg STK-MED ONCE .ROUTE ; Start 07/04/19 at 03:18; Stop 07/04/19 at 03:18; Status DC Iohexol (Omnipaque 350 Mg/ml) 90 ml 1X ONCE IV Last administered on 07/04/19at 03:25; Start 07/04/19 at 03:30; Stop 07/04/19 at 03:31; Status DC Info (CONTRAST GIVEN -- Rx MONITORING) 1 each PRN DAILY PRN MC SEE COMMENTS; Start 07/04/19 at 03:30; Stop 07/06/19 at 03:29; Status DC Hydromorphone HCl (Dilaudid) 0.5 mg 1X ONCE IV Last administered on 07/04/19at 03:55; Start 07/04/19 at 04:30; Stop 07/04/19 at 04:32; Status DC Ondansetron HCl (Zofran) 4 mg PRN Q8HRS PRN IV NAUSEA/VOMITING 1ST CHOICE; Start 07/04/19 at 05:00; Stop 07/04/19 at 09:27; Status DC Morphine Sulfate (Morphine Sulfate) 2 mg PRN Q2HR PRN IV SEVERE PAIN 7-10 Last administered on 07/05/19at 12:26; Start 07/04/19 at 05:00; Stop 07/05/19 at 14:15; Status DC Sodium Chloride 1,000 ml @ 125 mls/hr Q8H IV Last administered on 07/04/19at 20:56; Start 07/04/19 at 05:00; Stop 07/05/19 at 04:59; Status DC Hydromorphone HCl (Dilaudid) 0.5 mg PRN Q3HRS PRN IV SEVERE PAIN 7-10 Last administered on 07/05/19at 10:06; Start 07/04/19 at 05:00; Stop 07/05/19 at 12:01; Status DC Piperacillin Sod/ Tazobactam Sod 4.5 gm/Sodium Chloride 100 ml @ 200 mls/hr 1X ONCE IV Last administered on 07/04/19at 05:44; Start 07/04/19 at 06:00; Stop 07/04/19 at 06:29; Status DC Ondansetron HCl (Zofran) 4 mg PRN Q4HRS PRN IV NAUSEA/VOMITING 1ST CHOICE Last administered on 09/29/19at 15:22; Start 07/04/19 at 09:30 Insulin Human Lispro (HumaLOG) 0-9 UNITS Q6HRS SQ Last administered on 09/30/19at 06:22; Start 07/04/19 at 09:30 Dextrose (Dextrose 50%-Water Syringe) 12.5 gm PRN Q15MIN PRN IV SEE COMMENTS; Start 07/04/19 at 09:30 Pantoprazole Sodium (PROTONIX VIAL for IV PUSH) 40 mg DAILYAC IVP Last administered on 09/29/19at 09:22; Start 07/04/19 at 11:30 Prochlorperazine Edisylate (Compazine) 10 mg PRN Q6HRS PRN IV NAUSEA/VOMITING, 2nd CHOICE Last administered on 09/28/19at 14:33; Start 07/04/19 at 17:45 Atenolol (Tenormin) 100 mg DAILY PO ; Start 07/05/19 at 09:00; Stop 07/04/19 at 20:08; Status DC Metoprolol Tartrate (Lopressor Vial) 2.5 mg Q6HRS IVP Last administered on 07/05/19at 05:51; Start 07/04/19 at 20:15; Stop 07/05/19 at 10:02; Status DC Metoprolol Tartrate (Lopressor Vial) 5 mg Q6HRS IVP Last administered on 07/14/19at 00:12; Start 07/05/19 at 10:15; Stop 07/16/19 at 08:48; Status DC Hydromorphone HCl (Dilaudid) 1 mg PRN Q3HRS PRN IV SEVERE PAIN 7-10 Last administered on 07/11/19at 05:13; Start 07/05/19 at 12:00; Stop 07/19/19 at 00:25; Status DC Lidocaine HCl (Buffered Lidocaine 1%) 3 ml STK-MED ONCE .ROUTE ; Start 07/05/19 at 12:55; Stop 07/05/19 at 12:56; Status DC Albumin Human 500 ml @ 125 mls/hr 1X ONCE IV Last administered on 07/05/19at 14:33; Start 07/05/19 at 14:30; Stop 07/05/19 at 18:32; Status DC Norepinephrine Bitartrate 8 mg/ Dextrose 258 ml @ 17.299 mls/ hr CONT PRN IV PER PROTOCOL Last administered on 08/02/19at 12:48; Start 07/05/19 at 15:30; Stop 08/05/19 at 09:19; Status DC Sodium Chloride 1,000 ml @ 125 mls/hr Q8H IV Last administered on 07/05/19at 21:04; Start 07/05/19 at 16:00; Stop 07/06/19 at 02:42; Status DC Albumin Human 500 ml @ 125 mls/hr PRN BID PRN IV After every 2L NSS & BP < 90mm Last administered on 09/24/19at 11:40; Start 07/05/19 at 16:00 Iohexol (Omnipaque 300 Mg/ml) 60 ml 1X ONCE IV Last administered on 07/05/19at 17:20; Start 07/05/19 at 17:00; Stop 07/05/19 at 17:01; Status DC Info (CONTRAST GIVEN -- Rx MONITORING) 1 each PRN DAILY PRN MC SEE COMMENTS; Start 07/05/19 at 17:00; Stop 07/07/19 at 16:59; Status DC Meropenem 1 gm/ Sodium Chloride 100 ml @ 200 mls/hr Q8HRS IV Last administered on 07/06/19at 05:45; Start 07/05/19 at 20:00; Stop 07/06/19 at 08:48; Status DC Furosemide (Lasix) 40 mg 1X ONCE IVP Last administered on 07/05/19at 22:12; Start 07/05/19 at 22:30; Stop 07/05/19 at 22:31; Status DC Calcium Chloride 1000 mg/Sodium Chloride 110 ml @ 220 mls/hr 1X ONCE IV Last administered on 07/05/19at 22:11; Start 07/05/19 at 22:30; Stop 07/05/19 at 22:59; Status DC Albuterol Sulfate (Ventolin Neb Soln) 2.5 mg 1X ONCE NEB Last administered on 07/06/19at 00:56; Start 07/05/19 at 22:30; Stop 07/05/19 at 22:31; Status DC Insulin Human Regular (HumuLIN R VIAL) 5 unit 1X ONCE IV Last administered on 07/05/19at 22:14; Start 07/05/19 at 22:30; Stop 07/05/19 at 22:31; Status DC Magnesium Sulfate 50 ml @ 25 mls/hr 1X ONCE IV Last administered on 07/06/19at 02:57; Start 07/06/19 at 03:00; Stop 07/06/19 at 04:59; Status DC Calcium Gluconate 1000 mg/Sodium Chloride 110 ml @ 220 mls/hr 1X ONCE IV Last administered on 07/06/19at 02:46; Start 07/06/19 at 03:00; Stop 07/06/19 at 03:29; Status DC Sodium Chloride 1,000 ml @ 200 mls/hr Q5H IV Last administered on 07/06/19at 02:46; Start 07/06/19 at 03:00; Stop 07/06/19 at 10:21; Status DC Calcium Gluconate 1000 mg/Sodium Chloride 110 ml @ 220 mls/hr 1X ONCE IV Last administered on 07/06/19at 03:21; Start 07/06/19 at 03:30; Stop 07/06/19 at 03:59; Status DC Sodium Bicarbonate 50 meq/Sodium Chloride 1,050 ml @ 75 mls/hr Q14H IV Last administered on 07/10/19at 21:10; Start 07/06/19 at 07:30; Stop 07/11/19 at 10:28; Status DC Calcium Gluconate 2000 mg/Sodium Chloride 120 ml @ 220 mls/hr 1X ONCE IV Last administered on 07/06/19at 09:05; Start 07/06/19 at 07:30; Stop 07/06/19 at 08:02; Status DC Lidocaine HCl (Xylocaine-Mpf 1% 2ml Vial) 2 ml STK-MED ONCE .ROUTE ; Start 07/06/19 at 08:47; Stop 07/06/19 at 08:47; Status DC Meropenem 500 mg/ Sodium Chloride 50 ml @ 100 mls/hr Q12HR IV Last administered on 07/11/19at 21:01; Start 07/06/19 at 18:00; Stop 07/12/19 at 07:58; Status DC Lidocaine HCl (Buffered Lidocaine 1%) 3 ml STK-MED ONCE .ROUTE ; Start 07/06/19 at 09:46; Stop 07/06/19 at 09:46; Status DC Lidocaine HCl (Buffered Lidocaine 1%) 6 ml 1X ONCE INJ Last administered on 07/06/19at 10:26; Start 07/06/19 at 10:15; Stop 07/06/19 at 10:16; Status DC Info (Tpn Per Pharmacy) 1 each PRN DAILY PRN MC SEE COMMENTS Last administered on 09/29/19at 12:57; Start 07/06/19 at 12:00 Sodium Chloride 1,000 ml @ 1,000 mls/hr Q1H PRN IV hypotension; Start 07/06/19 at 12:07; Stop 07/06/19 at 18:06; Status DC Diphenhydramine HCl (Benadryl) 25 mg 1X PRN PRN IV ITCHING; Start 07/06/19 at 12:15; Stop 07/07/19 at 12:14; Status DC Diphenhydramine HCl (Benadryl) 25 mg 1X PRN PRN IV ITCHING; Start 07/06/19 at 12:15; Stop 07/07/19 at 12:14; Status DC Sodium Chloride 1,000 ml @ 400 mls/hr Q2H30M PRN IV PATENCY; Start 07/06/19 at 12:07; Stop 07/07/19 at 00:06; Status DC Info (PHARMACY MONITORING -- do not chart) 1 each PRN DAILY PRN MC SEE COMMENTS; Start 07/06/19 at 12:15; Stop 07/08/19 at 08:13; Status DC Sodium Chloride 90 meq/Calcium Gluconate 10 meq/ Multivitamins 10 ml/Chromium/ Copper/Manganese/ Seleni/Zn 1 ml/ Total Parenteral Nutrition/Amino Acids/Dextrose/ Fat Emulsion Intravenous 55.005 ml @ 2.292 mls/hr TPN CONT IV ; Start 07/06/19 at 22:00; Stop 07/06/19 at 12:33; Status DC Info (Tpn Per Pharmacy) 1 each PRN DAILY PRN MC SEE COMMENTS; Start 07/06/19 at 12:30; Status UNV Sodium Chloride 90 meq/Calcium Gluconate 10 meq/ Multivitamins 10 ml/Chromium/ Copper/Manganese/ Seleni/Zn 0.5 ml/ Total Parenteral Nutrition/Amino Acids/Dextrose/ Fat Emulsion Intravenous 1,512 ml @ 63 mls/hr TPN CONT IV Last administered on 07/06/19at 22:06; Start 07/06/19 at 22:00; Stop 07/07/19 at 21:59; Status DC Calcium Carbonate/ Glycine (Tums) 500 mg PRN AFTMEALHC PRN PO INDIGESTION; Start 07/06/19 at 17:45; Stop 08/31/19 at 10:25; Status DC Calcium Gluconate (Calcium Gluconate) 2,000 mg 1X ONCE IVP Last administered on 07/07/19at 02:19; Start 07/07/19 at 02:15; Stop 07/07/19 at 02:16; Status DC Calcium Chloride 3000 mg/Sodium Chloride 1,030 ml @ 50 mls/hr [id number] IV Last administered on 07/09/19at 02:17; Start 07/07/19 at 08:00; Stop 07/09/19 at 15:23; Status DC Lorazepam (Ativan Inj) 1 mg PRN Q4HRS PRN IVP ANXIETY / AGITATION, 2nd choic Last administered on 08/05/19at 03:51; Start 07/07/19 at 09:00; Stop 08/05/19 at 09:19; Status DC Sodium Chloride 1,000 ml @ 1,000 mls/hr Q1H PRN IV hypotension; Start 07/07/19 at 08:56; Stop 07/07/19 at 14:55; Status DC Albumin Human 200 ml @ 200 mls/hr 1X PRN PRN IV Hypotension; Start 07/07/19 at 09:00; Stop 07/07/19 at 14:59; Status DC Diphenhydramine HCl (Benadryl) 25 mg 1X PRN PRN IV ITCHING; Start 07/07/19 at 09:00; Stop 07/08/19 at 08:59; Status DC Diphenhydramine HCl (Benadryl) 25 mg 1X PRN PRN IV ITCHING; Start 07/07/19 at 09:00; Stop 07/08/19 at 08:59; Status DC Sodium Chloride 1,000 ml @ 400 mls/hr Q2H30M PRN IV PATENCY; Start 07/07/19 at 08:56; Stop 07/07/19 at 20:55; Status DC Info (PHARMACY MONITORING -- do not chart) 1 each PRN DAILY PRN MC SEE COMMENTS; Start 07/07/19 at 09:00; Status UNV Info (PHARMACY MONITORING -- do not chart) 1 each PRN DAILY PRN MC SEE COMM ENTS; Start 07/07/19 at 09:00; Stop 07/08/19 at 08:13; Status DC Digoxin (Lanoxin) 500 mcg 1X ONCE IV Last administered on 07/07/19at 10:04; Start 07/07/19 at 10:00; Stop 07/07/19 at 10:01; Status DC Digoxin (Lanoxin) 125 mcg 1X ONCE IV Last administered on 07/07/19at 17:10; Start 07/07/19 at 18:00; Stop 07/07/19 at 18:01; Status DC Magnesium Sulfate 100 ml @ 25 mls/hr 1X ONCE IV Last administered on 07/07/19at 12:48; Start 07/07/19 at 13:00; Stop 07/07/19 at 16:59; Status DC Sodium Chloride 90 meq/Magnesium Sulfate 10 meq/ Calcium Gluconate 20 meq/ Multivitamins 10 ml/Chromium/ Copper/Manganese/ Seleni/Zn 0.5 ml/ Total Pare nteral Nutrition/Amino Acids/Dextrose/ Fat Emulsion Intravenous 1,512 ml @ 63 mls/hr TPN CONT IV Last administered on 07/07/19at 22:25; Start 07/07/19 at 22:00; Stop 07/08/19 at 21:59; Status DC Sodium Chloride 1,000 ml @ 1,000 mls/hr Q1H PRN IV hypotension; Start 07/08/19 at 08:05; Stop 07/08/19 at 14:04; Status DC Albumin Human 200 ml @ 200 mls/hr 1X ONCE IV Last administered on 07/08/19at 08:57; Start 07/08/19 at 08:15; Stop 07/08/19 at 09:14; Status DC Diphenhydramine HCl (Benadryl) 25 mg 1X PRN PRN IV ITCHING; Start 07/08/19 at 08:15; Stop 07/09/19 at 08:14; Status DC Diphenhydramine HCl (Benadryl) 25 mg 1X PRN PRN IV ITCHING; Start 07/08/19 at 08:15; Stop 07/09/19 at 08:14; Status DC Sodium Chloride 1,000 ml @ 400 mls/hr Q2H30M PRN IV PATENCY; Start 07/08/19 at 08:05; Stop 07/08/19 at 20:04; Status DC Info (PHARMACY MONITORING -- do not chart) 1 each PRN DAILY PRN MC SEE COMMENTS; Start 07/08/19 at 08:15; Stop 07/12/19 at 07:57; Status DC Sodium Chloride 90 meq/Potassium Chloride 15 meq/ Potassium Phosphate 10 mmol/ Magnesium Sulfate 10 meq/Calcium Gluconate 20 meq/ Multivitamins 10 ml/Chromium/ Copper/Manganese/ Seleni/Zn 0.5 ml/ Total Parenteral Nutrition/Amino Acids/Dextrose/ Fat Emulsion Intravenous 1,512 ml @ 63 mls/hr TPN CONT IV Last administered on 07/08/19at 21:01; Start 07/08/19 at 22:00; Stop 07/09/19 at 21:59; Status DC Potassium Chloride/Water 100 ml @ 100 mls/hr 1X ONCE IV Last administered on 07/08/19at 14:09; Start 07/08/19 at 14:00; Stop 07/08/19 at 14:59; Status DC Benzocaine (Hurricaine One) 1 spray 1X ONCE MM Last administered on 07/08/19at 16:38; Start 07/08/19 at 14:30; Stop 07/08/19 at 14:31; Status DC Lidocaine HCl (Glydo (Lidocaine) Jelly) 1 ramu 1X ONCE MM Last administered on 07/08/19at 16:38; Start 07/08/19 at 14:30; Stop 07/08/19 at 14:31; Status DC Linezolid/Dextrose 300 ml @ 300 mls/hr Q12HR IV Last administered on 07/14/19at 21:04; Start 07/08/19 at 20:00; Stop 07/15/19 at 07:50; Status DC Acetaminophen (Tylenol) 650 mg PRN Q6HRS PRN PO MILD PAIN / TEMP; Start 07/09/19 at 03:30; Stop 07/09/19 at 03:36; Status DC Acetaminophen (Tylenol) 650 mg PRN Q6HRS PRN PEG MILD PAIN / TEMP Last administered on 08/04/19at 19:56; Start 07/09/19 at 03:36; Stop 08/31/19 at 10:25; Status DC Sodium Chloride 1,000 ml @ 1,000 mls/hr Q1H PRN IV hypotension; Start 07/09/19 at 07:50; Stop 07/09/19 at 13:49; Status DC Albumin Human 200 ml @ 200 mls/hr 1X PRN PRN IV Hypotension; Start 07/09/19 at 08:00; Stop 07/09/19 at 13:59; Status DC Sodium Chloride (Normal Saline Flush) 10 ml 1X PRN PRN IV AP catheter pack; Start 07/09/19 at 08:00; Stop 07/10/19 at 07:59; Status DC Sodium Chloride (Normal Saline Flush) 10 ml 1X PRN PRN IV HELP DESK ANALYST catheter pack; Start 07/09/19 at 08:00; Stop 07/10/19 at 07:59; Status DC Sodium Chloride 1,000 ml @ 400 mls/hr Q2H30M PRN IV PATENCY; Start 07/09/19 at 07:50; Stop 07/09/19 at 19:49; Status DC Info (PHARMACY MONITORING -- do not chart) 1 each PRN DAILY PRN MC SEE COMMENTS; Start 07/09/19 at 08:00; Status UNV Info (PHARMACY MONITORING -- do not chart) 1 each PRN DAILY PRN MC SEE COMMENTS; Start 07/09/19 at 08:00; Stop 07/11/19 at 08:25; Status DC Sodium Chloride 90 meq/Potassium Chloride 15 meq/ Potassium Phosphate 10 mmol/ Magnesium Sulfate 10 meq/Calcium Gluconate 20 meq/ Multivitamins 10 ml/Chromium/ Copper/Manganese/ Seleni/Zn 0.5 ml/ Total Parenteral Nutrition/Amino Acids/Dextrose/ Fat Emulsion Intravenous 1,512 ml @ 63 mls/hr TPN CONT IV Last administered on 07/09/19at 20:57; Start 07/09/19 at 22:00; Stop 07/10/19 at 21:59; Status DC Sodium Chloride 90 meq/Potassium Chloride 15 meq/ Potassium Phosphate 15 mmol/ Magnesium Sulfate 10 meq/Calcium Gluconate 20 meq/ Multivitamins 10 ml/Chromium/ Copper/Manganese/ Seleni/Zn 0.5 ml/ Total Parenteral Nutrition/Amino Acids/Dextrose/ Fat Emulsion Intravenous 1,512 ml @ 63 mls/hr TPN CONT IV ; Start 07/10/19 at 22:00; Stop 07/10/19 at 14:16; Status DC Sodium Chloride 90 meq/Potassium Chloride 15 meq/ Potassium Phosphate 15 mmol/ Magnesium Sulfate 10 meq/Calcium Gluconate 20 meq/ Multivitamins 10 ml/Chromium/ Copper/Manganese/ Seleni/Zn 0.5 ml/ Total Parenteral Nutrition/Amino Acids/Dextrose/ Fat Emulsion Intravenous 1,200 ml @ 50 mls/hr TPN CONT IV ; Start 07/10/19 at 22:00; Stop 07/10/19 at 14:17; Status DC Sodium Chloride 90 meq/Potassium Chloride 15 meq/ Potassium Phosphate 10 mmol/ Magnesium Sulfate 10 meq/Calcium Gluconate 20 meq/ Multivitamins 10 ml/Chromium/ Copper/Manganese/ Seleni/Zn 0.5 ml/ Total Parenteral Nutrition/Amino Acids/Dextrose/ Fat Emulsion Intravenous 1,200 ml @ 50 mls/hr TPN CONT IV Last administered on 07/10/19at 23:29; Start 07/10/19 at 22:00; Stop 07/11/19 at 21:59; Status DC Sodium Chloride 1,000 ml @ 1,000 mls/hr Q1H PRN IV hypotension; Start 07/11/19 at 07:28; Stop 07/11/19 at 13:27; Status DC Albumin Human 200 ml @ 200 mls/hr 1X ONCE IV Last administered on 07/11/19at 08:51; Start 07/11/19 at 07:30; Stop 07/11/19 at 08:29; Status DC Diphenhydramine HCl (Benadryl) 25 mg 1X PRN PRN IV ITCHING; Start 07/11/19 at 07:30; Stop 07/12/19 at 07:29; Status DC Diphenhydramine HCl (Benadryl) 25 mg 1X PRN PRN IV ITCHING; Start 07/11/19 at 07:30; Stop 07/12/19 at 07:29; Status DC Sodium Chloride 1,000 ml @ 400 mls/hr Q2H30M PRN IV PATENCY; Start 07/11/19 at 07:28; Stop 07/11/19 at 19:27; Status DC Info (PHARMACY MONITORING -- do not chart) 1 each PRN DAILY PRN MC SEE COMMENTS; Start 07/11/19 at 07:30; Stop 07/22/19 at 13:01; Status DC Metronidazole 100 ml @ 100 mls/hr Q6HRS IV Last administered on 07/27/19at 06:26; Start 07/11/19 at 08:30; Stop 07/27/19 at 09:58; Status DC Micafungin Sodium 100 mg/Dextrose 100 ml @ 100 mls/hr Q24H IV Last administered on 08/18/19at 08:18; Start 07/11/19 at 09:00; Stop 08/18/19 at 20:58; Status DC Propofol 0 ml @ As Directed STK-MED ONCE IV ; Start 07/11/19 at 07:53; Stop 07/11/19 at 07:53; Status DC Etomidate (Amidate) 20 mg STK-MED ONCE IV ; Start 07/11/19 at 07:53; Stop 07/11/19 at 07:54; Status DC Midazolam HCl (Versed) 5 mg STK-MED ONCE .ROUTE ; Start 07/11/19 at 07:57; Stop 07/11/19 at 07:57; Status DC Fentanyl Citrate 30 ml @ 0 mls/hr CONT PRN IV SEE PROTOCOL Last administered on 08/05/19at 06:12; Start 07/11/19 at 08:15; Stop 08/05/19 at 09:19; Status DC Artificial Tears (Artificial Tears) 1 drop PRN Q1HR PRN OU DRY EYE, 1st choice; Start 07/11/19 at 08:15; Stop 08/17/19 at 05:31; Status DC Midazolam HCl 50 mg/Sodium Chloride 50 ml @ 0 mls/hr CONT PRN IV SEE PROTOCOL Last administered on 07/14/19at 22:39; Start 07/11/19 at 08:15; Stop 07/16/19 at 15:59; Status DC Etomidate (Amidate) 8 mg 1X ONCE IV Last administered on 07/11/19at 08:33; Start 07/11/19 at 08:30; Stop 07/11/19 at 08:31; Status DC Succinylcholine Chloride (Anectine) 120 mg 1X ONCE IV Last administered on 07/11/19at 08:34; Start 07/11/19 at 08:30; Stop 07/11/19 at 08:31; Status DC Midazolam HCl (Versed) 5 mg 1X ONCE IV ; Start 07/11/19 at 08:30; Stop 07/11/19 at 08:31; Status DC Potassium Chloride 15 meq/ Bicarbonate Dialysis Soln w/ out KCl 5,007.5 ml @ 1,000 mls/ hr Q5H1M IV Last administered on 07/12/19at 11:11; Start 07/11/19 at 12:00; Stop 07/12/19 at 11:15; Status DC Potassium Chloride 15 meq/ Bicarbonate Dialysis Soln w/ out KCl 5,007.5 ml @ 1,000 mls/ hr Q5H1M IV Last administered on 07/12/19at 11:12; Start 07/11/19 at 12:00; Stop 07/12/19 at 11:17; Status DC Potassium Chloride 15 meq/ Bicarbonate Dialysis Soln w/ out KCl 5,007.5 ml @ 1,000 mls/ hr Q5H1M IV Last administered on 07/12/19at 11:11; Start 07/11/19 at 12:00; Stop 07/12/19 at 11:19; Status DC Sodium Chloride 90 meq/Potassium Chloride 15 meq/ Potassium Phosphate 10 mmol/ Magnesium Sulfate 10 meq/Calcium Gluconate 20 meq/ Multivitamins 10 ml/Chromium/ Copper/Manganese/ Seleni/Zn 0.5 ml/ Total Parenteral Nutrition/Amino Acids/Dextrose/ Fat Emulsion Intravenous 1,400 ml @ 58.333 mls/ hr TPN CONT IV Last administered on 07/11/19at 21:42; Start 07/11/19 at 22:00; Stop 07/12/19 at 21:59; Status DC Heparin Sodium (Porcine) (Heparin Sodium) 5,000 unit Q8HRS SQ Last administered on 07/16/19at 05:55; Start 07/11/19 at 15:00; Stop 07/16/19 at 13:28; Status DC Meropenem 500 mg/ Sodium Chloride 50 ml @ 100 mls/hr Q6HRS IV Last administered on 07/13/19at 06:00; Start 07/12/19 at 09:00; Stop 07/13/19 at 07:29; Status DC Potassium Phosphate 20 mmol/ Sodium Chloride 106.6667 ml @ 51.667 m... 1X ONCE IV Last administered on 07/12/19at 11:22; Start 07/12/19 at 10:15; Stop 07/12/19 at 12:18; Status DC Acetaminophen (Tylenol Supp) 650 mg PRN Q6HRS PRN NC MILD PAIN / TEMP > 100.3'F Last administered on 09/28/19at 22:16; Start 07/12/19 at 10:30 Potassium Chloride/Water 100 ml @ 100 mls/hr Q1H IV Last administered on 07/12/19at 12:12; Start 07/12/19 at 11:00; Stop 07/12/19 at 12:59; Status DC Potassium Chloride 20 meq/ Bicarbonate Dialysis Soln w/ out KCl 5,010 ml @ 1,000 mls/hr Q5H1M IV Last administered on 07/13/19at 08:48; Start 07/12/19 at 1 2:00; Stop 07/13/19 at 13:03; Status DC Potassium Chloride 20 meq/ Bicarbonate Dialysis Soln w/ out KCl 5,010 ml @ 1,000 mls/hr Q5H1M IV Last administered on 07/17/19at 14:52; Start 07/12/19 at 11:30; Stop 07/17/19 at 19:59; Status DC Potassium Chloride 20 meq/ Bicarbonate Dialysis Soln w/ out KCl 5,010 ml @ 1,000 mls/hr Q5H1M IV Last administered on 07/17/19at 14:53; Start 07/12/19 at 11:30; Stop 07/17/19 at 19:59; Status DC Sodium Chloride 90 meq/Potassium Chloride 15 meq/ Potassium Phosphate 15 mmol/ Magnesium Sulfate 10 meq/Calcium Gluconate 15 meq/ Multivitamins 10 ml/Chromium/ Copper/Manganese/ Seleni/Zn 0.5 ml/ Total Parenteral Nutrition/Amino Acids/Dextrose/ Fat Emulsion Intravenous 1,400 ml @ 58.333 mls/ hr TPN CONT IV Last administered on 07/12/19at 22:17; Start 07/12/19 at 22:00; Stop 07/13/19 at 21:59; Status DC Cefepime HCl (Maxipime) 2 gm Q12HR IVP Last administered on 07/26/19at 20:56; Start 07/13/19 at 09:00; Stop 07/27/19 at 09:58; Status DC Daptomycin 500 mg/ Sodium Chloride 50 ml @ 100 mls/hr Q48H IV Last administered on 07/29/19at 09:57; Start 07/13/19 at 08:30; Stop 07/29/19 at 10:07; Status DC Lidocaine HCl (Buffered Lidocaine 1%) 3 ml 1X ONCE INJ Last administered on 07/13/19at 10:27; Start 07/13/19 at 10:30; Stop 07/13/19 at 10:31; Status DC Potassium Phosphate 20 mmol/ Sodium Chloride 106.6667 ml @ 51.667 m... 1X ONCE IV Last administered on 07/13/19at 12:51; Start 07/13/19 at 13:00; Stop 07/13/19 at 15:03; Status DC Sodium Chloride 90 meq/Potassium Chloride 15 meq/ Potassium Phosphate 18 mmol/ Magnesium Sulfate 8 meq/Calcium Gluconate 15 meq/ Multivitamins 10 ml/Chromium/ Copper/Manganese/ Seleni/Zn 0.5 ml/ Total Parenteral Nutrition/Amino Acids/Dextrose/ Fat Emulsion Intravenous 1,400 ml @ 58.333 mls/ hr TPN CONT IV Last administered on 07/13/19at 22:16; Start 07/13/19 at 22:00; Stop 07/14/19 at 21:59; Status DC Potassium Chloride 20 meq/ Bicarbonate Dialysis Soln w/ out KCl 5,010 ml @ 1,000 mls/hr Q5H1M IV Last administered on 07/17/19at 14:54; Start 07/13/19 at 16:00; Stop 07/17/19 at 19:59; Status DC Multi-Ingred Cream/Lotion/Oil/ Oint (Artificial Tears Eye Ointment) 1 ramu PRN Q1HR PRN OU DRY EYE, 2nd choice Last administered on 08/01/19at 08:19; Start 07/13/19 at 17:30; Stop 09/21/19 at 14:39; Status DC Sodium Chloride 90 meq/Potassium Chloride 15 meq/ Potassium Phosphate 18 mmol/ Magnesium Sulfate 8 meq/Calcium Gluconate 15 meq/ Multivitamins 10 ml/Chromium/ Copper/Manganese/ Seleni/Zn 0.5 ml/ Total Parenteral Nutrition/Amino Acids/Dextrose/ Fat Emulsion Intravenous 1,400 ml @ 58.333 mls/ hr TPN CONT IV Last administered on 07/14/19at 22:00; Start 07/14/19 at 22:00; Stop 07/15/19 at 21:59; Status DC Albumin Human 500 ml @ 125 mls/hr 1X ONCE IV ; Start 07/14/19 at 14:15; Stop 07/14/19 at 18:14; Status DC Sodium Chloride 90 meq/Potassium Chloride 15 meq/ Potassium Phosphate 18 mmol/ Magnesium Sulfate 8 meq/Calcium Gluconate 15 meq/ Multivitamins 10 ml/Chromium/ Copper/Manganese/ Seleni/Zn 0.5 ml/ Insulin Human Regular 10 unit/ Total Parenteral Nutrition/Amino Acids/Dextrose/ Fat Emulsion Intravenous 1,400 ml @ 58.333 mls/ hr TPN CONT IV Last administered on 07/15/19at 21:43; Start 07/14 at 22:00; Stop 07/16/19 at 21:59; Status DC Lidocaine HCl (Buffered Lidocaine 1%) 3 ml STK-MED ONCE .ROUTE ; Start 07/13/19 at 10:00; Stop 07/15/19 at 13:57; Status DC Midazolam HCl 100 mg/Sodium Chloride 100 ml @ 7 mls/hr CONT PRN IV SEE PROTOCOL Last administered on 07/27/19at 15:35; Start 07/16/19 at 16:00; Stop 09/21/19 at 14:38; Status DC Sodium Chloride 90 meq/Potassium Chloride 15 meq/ Potassium Phosphate 18 mmol/ Magnesium Sulfate 8 meq/Calcium Gluconate 15 meq/ Multivitamins 10 ml/Chromium/ Copper/Manganese/ Seleni/Zn 0.5 ml/ Insulin Human Regular 15 unit/ Total Parenteral Nutrition/Amino Acids/Dextrose/ Fat Emulsion Intravenous 1,400 ml @ 58.333 mls/ hr TPN CONT IV Last administered on 07/16/19at 20:34; Start 07/16/19 at 22:00; Stop 07/17/19 at 21:59; Status DC Info (Icu Electrolyte Protocol) 1 ea CONT PRN PRN MC PER PROTOCOL; Start 07/17/19 at 13:15 Sodium Chloride 90 meq/Potassium Chloride 15 meq/ Potassium Phosphate 18 mmol/ Magnesium Sulfate 8 meq/Calcium Gluconate 15 meq/ Multivitamins 10 ml/Chromium/ Copper/Manganese/ Seleni/Zn 0.5 ml/ Insulin Human Regular 15 unit/ Total Parenteral Nutrition/Amino Acids/Dextrose/ Fat Emulsion Intravenous 1,400 ml @ 58.333 mls/ hr TPN CONT IV Last administered on 07/17/19at 22:05; Start 07/17/19 at 22:00; Stop 07/18/19 at 21:59; Status DC Potassium Chloride 15 meq/ Bicarbonate Dialysis Soln w/ out KCl 5,007.5 ml @ 1,000 mls/ hr Q5H1M IV Last administered on 07/20/19at 18:14; Start 07/17/19 at 20:00; Stop 07/21/19 at 13:08; Status DC Potassium Chloride 15 meq/ Bicarbonate Dialysis Soln w/ out KCl 5,007.5 ml @ 1,000 mls/ hr Q5H1M IV Last administered on 07/20/19at 18:14; Start 07/17/19 at 20:00; Stop 07/21/19 at 13:08; Status DC Potassium Chloride 15 meq/ Bicarbonate Dialysis Soln w/ out KCl 5,007.5 ml @ 1,000 mls/ hr Q5H1M IV Last administered on 07/20/19at 18:14; Start 07/17/19 at 20:00; Stop 07/21/19 at 13:08; Status DC Iohexol (Omnipaque 240 Mg/ml) 30 ml 1X ONCE PO Last administered on 07/18/19at 11:30; Start 07/18/19 at 11:30; Stop 07/18/19 at 11:33; Status DC Info (CONTRAST GIVEN -- Rx MONITORING) 1 each PRN DAILY PRN MC SEE COMMENTS; Start 07/18/19 at 11:45; Stop 07/20/19 at 11:44; Status DC Sodium Chloride 90 meq/Potassium Chloride 15 meq/ Potassium Phosphate 18 mmol/ Magnesium Sulfate 8 meq/Calcium Gluconate 15 meq/ Multivitamins 10 ml/Chromium/ Copper/Manganese/ Seleni/Zn 0.5 ml/ Insulin Human Regular 15 unit/ Total P arenteral Nutrition/Amino Acids/Dextrose/ Fat Emulsion Intravenous 1,400 ml @ 58.333 mls/ hr TPN CONT IV Last administered on 07/18/19at 21:47; Start 07/18/19 at 22:00; Stop 07/19/19 at 21:59; Status DC Sodium Chloride 90 meq/Potassium Chloride 15 meq/ Potassium Phosphate 18 mmol/ Magnesium Sulfate 8 meq/Calcium Gluconate 15 meq/ Multivitamins 10 ml/Chromium/ Copper/Manganese/ Seleni/Zn 0.5 ml/ Insulin Human Regular 20 unit/ Total Parenteral Nutrition/Amino Acids/Dextrose/ Fat Emulsion Intravenous 1,400 ml @ 58.333 mls/ hr TPN CONT IV Last administered on 07/19/19at 21:36; Start 07/19/19 at 22:00; Stop 07/20/19 at 21:59; Status DC Alteplase, Recombinant (Cathflo For Central Catheter Clearance) 1 mg 1X ONCE INT CAT Last administered on 07/19/19at 20:03; Start 07/19/19 at 19:30; Stop 07/19/19 at 19:46; Status DC Alteplase, Recombinant (Cathflo For Central Catheter Clearance) 1 mg 1X ONCE INT CAT Last administered on 07/19/19at 22:05; Start 07/19/19 at 22:00; Stop 07/19/19 at 22:01; Status DC Sodium Chloride 90 meq/Potassium Chloride 15 meq/ Potassium Phosphate 18 mmol/ Magnesium Sulfate 8 meq/Calcium Gluconate 15 meq/ Multivitamins 10 ml/Chromium/ Copper/Manganese/ Seleni/Zn 0.5 ml/ Insulin Human Regular 20 unit/ Total Parenteral Nutrition/Amino Acids/Dextrose/ Fat Emulsion Intravenous 1,400 ml @ 58.333 mls/ hr TPN CONT IV Last administered on 07/20/19at 21:30; Start 07/20/19 at 22:00; Stop 07/21/19 at 21:59; Status DC Dexmedetomidine HCl 400 mcg/ Sodium Chloride 100 ml @ 0 mls/hr CONT PRN IV ANXIETY / AGITATION Last administered on 09/17/19at 12:57; Start 07/21/19 at 08:15; Stop 09/17/19 at 18:31; Status DC Sodium Chloride 500 ml @ 500 mls/hr 1X PRN PRN IV ELEVATED BP, SEE COMMENTS; Start 07/21/19 at 08:15 Atropine Sulfate (ATROPINE 0.5mg SYRINGE) 0.5 mg PRN Q5MIN PRN IV SEE COMMENTS; Start 07/21/19 at 08:15 Furosemide (Lasix) 20 mg 1X ONCE IVP Last administered on 07/21/19at 08:19; Start 07/21/19 at 08:15; Stop 07/21/19 at 08:16; Status DC Lidocaine HCl (Buffered Lidocaine 1%) 3 ml STK-MED ONCE .ROUTE ; Start 07/21/19 at 08:39; Stop 07/21/19 at 08:39; Status DC Lidocaine HCl (Buffered Lidocaine 1%) 6 ml 1X ONCE INJ Last administered on 07/21/19at 09:05; Start 07/21/19 at 09:00; Stop 07/21/19 at 09:06; Status DC Sodium Chloride 90 meq/Potassium Chloride 15 meq/ Potassium Phosphate 18 mmol/ Magnesium Sulfate 8 meq/Calcium Gluconate 15 meq/ Multivitamins 10 ml/Chromium/ Copper/Manganese/ Seleni/Zn 0.5 ml/ Insulin Human Regular 20 unit/ Total Parenteral Nutrition/Amino Acids/Dextrose/ Fat Emulsion Intravenous 1,400 ml @ 58.333 mls/ hr TPN CONT IV Last administered on 07/21/19at 22:45; Start 07/21/19 at 22:00; Stop 07/22/19 at 21:59; Status DC Sodium Chloride 1,000 ml @ 1,000 mls/hr Q1H PRN IV hypotension; Start 07/22/19 at 07:30; Stop 07/22/19 at 13:29; Status DC Albumin Human 200 ml @ 200 mls/hr 1X PRN PRN IV Hypotension Last administered on 07/22/19at 09:36; Start 07/22/19 at 07:30; Stop 07/22/19 at 13:29; Status DC Sodium Chloride (Normal Saline Flush) 10 ml 1X PRN PRN IV AP catheter pack; Start 07/22/19 at 07:30; Stop 07/22/19 at 21:29; Status DC Sodium Chloride (Normal Saline Flush) 10 ml 1X PRN PRN IV HELP DESK ANALYST catheter pack; Start 07/22/19 at 07:30; Stop 07/23/19 at 07:29; Status DC Sodium Chloride 1,000 ml @ 400 mls/hr Q2H30M PRN IV PATENCY; Start 07/22/19 at 07:30; Stop 07/22/19 at 19:29; Status DC Info (PHARMACY MONITORING -- do not chart) 1 each PRN DAILY PRN MC SEE COMMENTS; Start 07/22/19 at 07:30; Stop 07/22/19 at 13:02; Status DC Info (PHARMACY MONITORING -- do not chart) 1 each PRN DAILY PRN MC SEE COMMENTS ; Start 07/22/19 at 07:30; Stop 07/24/19 at 12:45; Status DC Sodium Chloride 90 meq/Potassium Chloride 15 meq/ Potassium Phosphate 10 mmol/ Magnesium Sulfate 8 meq/Calcium Gluconate 15 meq/ Multivitamins 10 ml/Chromium/ Copper/Manganese/ Seleni/Zn 0.5 ml/ Insulin Human Regular 25 unit/ Total Parenteral Nutrition/Amino Acids/Dextrose/ Fat Emulsion Intravenous 1,400 ml @ 58.333 mls/ hr TPN CONT IV Last administered on 07/22/19at 22:19; Start 07/22/19 at 22:00; Stop 07/23/19 at 21:59; Status DC Heparin Sodium (Porcine) (Heparin Sodium) 5,000 unit Q12HR SQ Last administered on 08/14/19at 08:59; Start 07/22/19 at 21:00; Stop 08/14/19 at 10:05; Status DC Ondansetron HCl (Zofran) 4 mg PRN Q6HRS PRN IV NAUSEA/VOMITING; Start 07/25/19 at 07:00; Stop 07/26/19 at 06:59; Status DC Fentanyl Citrate (Fentanyl 2ml Vial) 25 mcg PRN Q5MIN PRN IV MILD PAIN 1-3; Start 07/25/19 at 07:00; Stop 07/26/19 at 06:59; Status DC Fentanyl Citrate (Fentanyl 2ml Vial) 50 mcg PRN Q5MIN PRN IV MODERATE TO SEVERE PAIN; Start 07/25/19 at 07:00; Stop 07/26/19 at 06:59; Status DC Ringer's Solution 1,000 ml @ 30 mls/hr Q24H IV ; Start 07/25/19 at 07:00; Stop 07/25/19 at 18:59; Status DC Lidocaine HCl (Xylocaine-Mpf 1% 2ml Vial) 2 ml PRN 1X PRN ID PRIOR TO IV START; Start 07/25/19 at 07:00; Stop 07/26/19 at 06:59; Status DC Prochlorperazine Edisylate (Compazine) 5 mg PACU PRN PRN IV NAUSEA, MRX1; Start 07/25/19 at 07:00; Stop 07/26/19 at 06:59; Status DC Sodium Chloride 1,000 ml @ 1,000 mls/hr Q1H PRN IV hypotension; Start 07/23/19 at 09:10; Stop 07/23/19 at 15:09; Status DC Albumin Human 200 ml @ 200 mls/hr 1X PRN PRN IV Hypotension Last administered on 07/23/19at 10:10; Start 07/23/19 at 09:15; Stop 07/23/19 at 15:14; Status DC Sodium Chloride 1,000 ml @ 400 mls/hr Q2H30M PRN IV PATENCY; Start 07/23/19 at 09:10; Stop 07/23/19 at 21:09; Status DC Info (PHARMACY MONITORING -- do not chart) 1 each PRN DAILY PRN MC SEE COMMENTS; Start 07/23/19 at 09:15; Stop 07/24/19 at 12:45; Status DC Info (PHARMACY MONITORING -- do not chart) 1 each PRN DAILY PRN MC SEE COMMENTS; Start 07/23/19 at 09:15; Stop 07/24/19 at 12:45; Status DC Sodium Chloride 90 meq/Potassium Chloride 15 meq/ Potassium Phosphate 10 mmol/ Magnesium Sulfate 8 meq/Calcium Gluconate 15 meq/ Multivitamins 10 ml/Chromium/ Copper/Manganese/ Seleni/Zn 0.5 ml/ Insulin Human Regular 25 unit/ Total Parenteral Nutrition/Amino Acids/Dextrose/ Fat Emulsion Intravenous 1,400 ml @ 58.333 mls/ hr TPN CONT IV Last administered on 07/23/19at 22:10; Start 07/23/19 at 22:00; Stop 07/24/19 at 21:59; Status DC Magnesium Sulfate 50 ml @ 25 mls/hr PRN DAILY PRN IV for Mag < 1.7 on am labs Last administered on 08/08/19at 17:27; Start 07/24/19 at 09:15 Sodium Chloride 90 meq/Potassium Chloride 15 meq/ Potassium Phosphate 10 mmol/ Magnesium Sulfate 8 meq/Calcium Gluconate 15 meq/ Multivitamins 10 ml/Chromium/ Copper/Manganese/ Seleni/Zn 0.5 ml/ Insulin Human Regular 25 unit/ Total Parenteral Nutrition/Amino Acids/Dextrose/ Fat Emulsion Intravenous 1,400 ml @ 58.333 mls/ hr TPN CONT IV Last administered on 07/24/19at 21:20; Start 07/24/19 at 22:00; Stop 07/25/19 at 21:59; Status DC Sodium Chloride 1,000 ml @ 1,000 mls/hr Q1H PRN IV hypotension; Start 07/24/19 at 12:23; Stop 07/24/19 at 18:22; Status DC Albumin Human 200 ml @ 200 mls/hr 1X ONCE IV Last administered on 07/24/19at 13:34; Start 07/24/19 at 12:30; Stop 07/24/19 at 13:29; Status DC Diphenhydramine HCl (Benadryl) 25 mg 1X PRN PRN IV ITCHING; Start 07/24/19 at 12:30; Stop 07/25/19 at 12:29; Status DC Diphenhydramine HCl (Benadryl) 25 mg 1X PRN PRN IV ITCHING; Start 07/24/19 at 12:30; Stop 07/25/19 at 12:29; Status DC Info (PHARMACY MONITORING -- do not chart) 1 each PRN DAILY PRN MC SEE COMME NTS; Start 07/24/19 at 12:30; Status Cancel Bupivacaine HCl/ Epinephrine Bitart (Sensorcain-Epi 0.5%-1:[id number] Mpf) 30 ml STK-MED ONCE .ROUTE Last administered on 07/25/19at 11:44; Start 07/25/19 at 11:00; Stop 07/25/19 at 11:01; Status DC Cellulose (Surgicel Fibrillar 1x2) 1 each STK-MED ONCE .ROUTE ; Start 07/25/19 at 11:00; Stop 07/25/19 at 11:01; Status DC Sodium Chloride 90 meq/Potassium Chloride 15 meq/ Potassium Phosphate 10 mmol/ Magnesium Sulfate 12 meq/Calcium Gluconate 15 meq/ Multivitamins 10 ml/Chromium/ Copper/Manganese/ Seleni/Zn 0.5 ml/ Insulin Human Regular 25 unit/ Total Parenteral Nutrition/Amino Acids/Dextrose/ Fat Emulsion Intravenous 1,400 ml @ 58.333 mls/ hr TPN CONT IV Last administered on 07/25/19at 22:24; Start 07/25/19 at 22:00; Stop 07/26/19 at 21:59; Status DC Propofol 20 ml @ As Directed STK-MED ONCE IV ; Start 07/25/19 at 11:07; Stop 07/25/19 at 11:07; Status DC Cellulose (Surgicel Hemostat 4x8) 1 each STK-MED ONCE .ROUTE Last administered on 07/25/19at 11:44; Start 07/25/19 at 11:55; Stop 07/25/19 at 11:56; Status DC Sevoflurane (Ultane) 60 ml STK-MED ONCE IH ; Start 07/25/19 at 12:46; Stop 07/25/19 at 12:46; Status DC Sodium Chloride 1,000 ml @ 1,000 mls/hr Q1H PRN IV hypotension; Start 07/25/19 at 13:51; Stop 07/25/19 at 19:50; Status DC Albumin Human 200 ml @ 200 mls/hr 1X PRN PRN IV Hypotension Last administered on 07/25/19at 14:51; Start 07/25/19 at 14:00; Stop 07/25/19 at 19:59; Status DC Diphenhydramine HCl (Benadryl) 25 mg 1X PRN PRN IV ITCHING; Start 07/25/19 at 14:00; Stop 07/26/19 at 13:59; Status DC Diphenhydramine HCl (Benadryl) 25 mg 1X PRN PRN IV ITCHING; Start 07/25/19 at 14:00; Stop 07/26/19 at 13:59; Status DC Sodium Chloride 1,000 ml @ 400 mls/hr Q2H30M PRN IV PATENCY; Start 07/25/19 at 13:51; Stop 07/26/19 at 01:50; Status DC Info (PHARMACY MONITORING -- do not chart) 1 each PRN DAILY PRN MC SEE COMMENTS; Start 07/25/19 at 14:00; Stop 07/28/19 at 08:16; Status DC Heparin Sodium (Porcine) (Hep Lock Adult) 500 unit STK-MED ONCE IVP ; Start 07/26/19 at 09:29; Stop 07/26/19 at 09:30; Status DC Sodium Chloride 1,000 ml @ 1,000 mls/hr Q1H PRN IV hypotension; Start 07/26/19 at 10:43; Stop 07/26/19 at 16:42; Status DC Sodium Chloride 1,000 ml @ 400 mls/hr Q2H30M PRN IV PATENCY; Start 07/26/19 at 10:43; Stop 07/26/19 at 22:42; Status DC Info (PHARMACY MONITORING -- do not chart) 1 each PRN DAILY PRN MC SEE COMMENTS; Start 07/26/19 at 10:45; Status UNV Info (PHARMACY MONITORING -- do not chart) 1 each PRN DAILY PRN MC SEE COMMENTS; Start 07/26/19 at 10:45; Status UNV Sodium Chloride 90 meq/Potassium Chloride 15 meq/ Magnesium Sulfate 12 meq/Calcium Gluconate 15 meq/ Multivitamins 10 ml/Chromium/ Copper/Manganese/ Seleni/Zn 0.5 ml/ Insulin Human Regular 25 unit/ Total Parenteral Nutrition/Amino Acids/Dextrose/ Fat Emulsion Intravenous 1,400 ml @ 58.333 mls/ hr TPN CONT IV Last administered on 07/26/19at 22:13; Start 07/26/19 at 22:00; Stop 07/27/19 at 21:59; Status DC Sodium Chloride 1,000 ml @ 1,000 mls/hr Q1H PRN IV hypotension; Start 07/27/19 at 07:50; Stop 07/27/19 at 13:49; Status DC Albumin Human 200 ml @ 200 mls/hr 1X ONCE IV ; Start 07/27/19 at 08:00; Stop 07/27/19 at 08:53; Status DC Diphenhydramine HCl (Benadryl) 25 mg 1X PRN PRN IV ITCHING; Start 07/27/19 at 08:00; Stop 07/28/19 at 07:59; Status DC Diphenhydramine HCl (Benadryl) 25 mg 1X PRN PRN IV ITCHING; Start 07/27/19 at 08:00; Stop 07/28/19 at 07:59; Status DC Info (PHARMACY MONITORING -- do not chart) 1 each PRN DAILY PRN MC SEE COMMENTS; Start 07/27/19 at 08:00; Stop 07/28/19 at 08:16; Status DC Albumin Human 50 ml @ 50 mls/hr 1X ONCE IV ; Start 07/27/19 at 08:53; Stop 07/27/19 at 08:56; Status DC Albumin Human 200 ml @ 50 mls/hr PRN 1X PRN IV HYPOTENSION Last administered on 08/02/19at 11:54; Start 07/27/19 at 09:00; Stop 09/08/19 at 11:14; Status DC Meropenem 500 mg/ Sodium Chloride 50 ml @ 100 mls/hr Q12H IV Last administered on 08/16/19at 10:45; Start 07/27/19 at 10:00; Stop 08/16/19 at 12:37; Status DC Sodium Chloride 90 meq/Magnesium Sulfate 12 meq/ Calcium Gluconate 15 meq/ Multivitamins 10 ml/Chromium/ Copper/Manganese/ Seleni/Zn 0.5 ml/ Insulin Human Regular 25 unit/ Total Parenteral Nutrition/Amino Acids/Dextrose/ Fat Emulsion Intravenous 1,400 ml @ 58.333 mls/ hr TPN CONT IV Last administered on 07/27/19at 21:41; Start 07/27/19 at 22:00; Stop 07/28/19 at 21:59; Status DC Sodium Chloride 1,000 ml @ 1,000 mls/hr Q1H PRN IV hypotension; Start 07/28/19 at 07:58; Stop 07/28/19 at 13:57; Status DC Albumin Human 200 ml @ 200 mls/hr 1X PRN PRN IV Hypotension Last administered on 07/28/19at 09:30; Start 07/28/19 at 08:00; Stop 07/28/19 at 13:59; Status DC Sodium Chloride 1,000 ml @ 400 mls/hr Q2H30M PRN IV PATENCY; Start 07/28/19 at 07:58; Stop 07/28/19 at 19:57; Status DC Info (PHARMACY MONITORING -- do not chart) 1 each PRN DAILY PRN MC SEE COMMENTS; Start 07/28/19 at 08:00; Status Cancel Info (PHARMACY MONITORING -- do not chart) 1 each PRN DAILY PRN MC SEE COMMENTS; Start 07/28/19 at 08:15; Status UNV Sodium Chloride 90 meq/Potassium Phosphate 5 mmol/ Magnesium Sulfate 12 meq/Calcium Gluconate 15 meq/ Multivitamins 10 ml/Chromium/ Copper/Manganese/ Seleni/Zn 0.5 ml/ Insulin Human Regular 30 unit/ Total Parenteral Nutrition/Amino Acids/Dextrose/ Fat Emulsion Intravenous 1,400 ml @ 58.333 mls/ hr TPN CONT IV Last administered on 07/28/19at 22:08; Start 07/28/19 at 22:00; Stop 07/29/19 at 21:59; Status DC Linezolid/Dextrose 300 ml @ 300 mls/hr Q12HR IV Last administered on 08/08/19at 20:40; Start 07/29/19 at 11:00; Stop 08/09/19 at 08:10; Status DC Sodium Chloride 90 meq/Potassium Phosphate 15 mmol/ Magnesium Sulfate 12 meq/Calcium Gluconate 15 meq/ Multivitamins 10 ml/Chromium/ Copper/Manganese/ Seleni/Zn 0.5 ml/ Insulin Human Regular 30 unit/ Total Parenteral Nutrition/Amino Acids/Dextrose/ Fat Emulsion Intravenous 1,400 ml @ 58.333 mls/ hr TPN CONT IV Last administered on 07/29/19at 21:49; Start 07/29/19 at 22:00; Stop 07/30/19 at 21:59; Status DC Sodium Chloride 90 meq/Potassium Phosphate 15 mmol/ Magnesium Sulfate 12 meq/Calcium Gluconate 15 meq/ Multivitamins 10 ml/Chromium/ Copper/Manganese/ Seleni/Zn 0.5 ml/ Insulin Human Regular 40 unit/ Total Parenteral Nutrition/Amino Acids/Dextrose/ Fat Emulsion Intravenous 1,400 ml @ 58.333 mls/ hr TPN CONT IV Last administered on 07/30/19at 21:21; Start 07/30/19 at 22:00; Stop 07/31/19 at 21:59; Status DC Sodium Chloride 1,000 ml @ 1,000 mls/hr Q1H PRN IV hypotension; Start 07/30/19 at 13:26; Stop 07/30/19 at 19:25; Status DC Albumin Human 200 ml @ 200 mls/hr 1X PRN PRN IV Hypotension Last administered on 07/30/19at 15:00; Start 07/30/19 at 13:30; Stop 07/30/19 at 19:29; Status DC Sodium Chloride (Normal Saline Flush) 10 ml 1X PRN PRN IV AP catheter pack; Start 07/30/19 at 13:30; Stop 07/31/19 at 13:29; Status DC Sodium Chloride (Normal Saline Flush) 10 ml 1X PRN PRN IV HELP DESK ANALYST catheter pack; Start 07/30/19 at 13:30; Stop 07/31/19 at 13:29; Status DC Sodium Chloride 1,000 ml @ 400 mls/hr Q2H30M PRN IV PATENCY; Start 07/30/19 at 13:26; Stop 07/31/19 at 01:25; Status DC Info (PHARMACY MONITORING -- do not chart) 1 each PRN DAILY PRN MC SEE COMMENTS; Start 07/30/19 at 13:30; Stop 07/30/19 at 13:33; Status DC Info (PHARMACY MONITORING -- do not chart) 1 each PRN DAILY PRN MC SEE COMMENTS; Start 07/30/19 at 13:30; Stop 07/30/19 at 13:34; Status DC Sodium Chloride 90 meq/Potassium Phosphate 19 mmol/ Magnesium Sulfate 12 meq/Calcium Gluconate 15 meq/ Multivitamins 10 ml/Chromium/ Copper/Manganese/ Seleni/Zn 0.5 ml/ Insulin Human Regular 40 unit/ Total Parenteral Nutrition/Amino Acids/Dextrose/ Fat Emulsion Intravenous 1,400 ml @ 58.333 mls/ hr TPN CONT IV Last administered on 07/31/19at 21:54; Start 07/31/19 at 22:00; Stop 08/01/19 at 21:59; Status DC Sodium Chloride 1,000 ml @ 1,000 mls/hr Q1H PRN IV hypotension; Start 08/01/19 at 09:35; Stop 08/01/19 at 15:34; Status DC Albumin Human 200 ml @ 200 mls/hr 1X PRN PRN IV Hypotension; Start 08/01/19 at 09:45; Stop 08/01/19 at 15:44; Status DC Diphenhydramine HCl (Benadryl) 25 mg 1X PRN PRN IV ITCHING; Start 08/01/19 at 09:45; Stop 08/02/19 at 09:44; Status DC Diphenhydramine HCl (Benadryl) 25 mg 1X PRN PRN IV ITCHING; Start 08/01/19 at 09:45; Stop 08/02/19 at 09:44; Status DC Sodium Chloride 1,000 ml @ 400 mls/hr Q2H30M PRN IV PATENCY; Start 08/01/19 at 09:35; Stop 08/01/19 at 21:34; Status DC Info (PHARMACY MONITORING -- do not chart) 1 each PRN DAILY PRN MC SEE COMMENTS; Start 08/01/19 at 09:45; Status Cancel Sodium Chloride 100 meq/Potassium Phosphate 19 mmol/ Magnesium Sulfate 12 m eq/Calcium Gluconate 15 meq/ Multivitamins 10 ml/Chromium/ Copper/Manganese/ Seleni/Zn 0.5 ml/ Insulin Human Regular 40 unit/ Potassium Chloride 20 meq/ Total Parenteral Nutrition/Amino Acids/Dextrose/ Fat Emulsion Intravenous 1,400 ml @ 58.333 mls/ hr TPN CONT IV Last administered on 08/01/19at 22:02; Start 08/01/19 at 22:00; Stop 08/02/19 at 21:59; Status DC Furosemide (Lasix) 40 mg 1X ONCE IVP Last administered on 08/01/19at 14:39; Start 08/01/19 at 14:30; Stop 08/01/19 at 14:31; Status DC Metronidazole 100 ml @ 100 mls/hr Q8HRS IV Last administered on 08/09/19at 06:04; Start 08/02/19 at 10:00; Stop 08/09/19 at 08:10; Status DC Sodium Chloride 1,000 ml @ 1,000 mls/hr Q1H PRN IV hypotension; Start 08/02/19 at 08:00; Stop 08/02/19 at 13:59; Status DC Albumin Human 200 ml @ 200 mls/hr 1X PRN PRN IV Hypotension; Start 08/02/19 at 08:00; Stop 08/02/19 at 13:59; Status DC Sodium Chloride 1,000 ml @ 400 mls/hr Q2H30M PRN IV PATENCY; Start 08/02/19 at 08:00; Stop 08/02/19 at 19:59; Status DC Info (PHARMACY MONITORING -- do not chart) 1 each PRN DAILY PRN MC SEE COMMENTS; Start 08/02/19 at 11:30; Status UNV Info (PHARMACY MONITORING -- do not chart) 1 each PRN DAILY PRN MC SEE COMMENTS; Start 08/02/19 at 11:30; Stop 08/04/19 at 12:13; Status DC Sodium Chloride 100 meq/Potassium Phosphate 19 mmol/ Magnesium Sulfate 12 meq/Calcium Gluconate 15 meq/ Multivitamins 10 ml/Chromium/ Copper/Manganese/ Seleni/Zn 0.5 ml/ Insulin Human Regular 40 unit/ Potassium Chloride 20 meq/ Total Parenteral Nutrition/Amino Acids/Dextrose/ Fat Emulsion Intravenous 1,400 ml @ 58.333 mls/ hr TPN CONT IV Last administered on 08/02/19at 21:52; Start 08/02/19 at 22:00; Stop 08/03/19 at 21:59; Status DC Sodium Chloride (Normal Saline Flush) 10 ml QSHIFT PRN IV AFTER MEDS AND BLOOD DRAWS; Start 08/02/19 at 15:00; Stop 08/30/19 at 11:27; Status DC Sodium Chloride (Normal Saline Flush) 10 ml PRN Q5MIN PRN IV AFTER MEDS AND BLOOD DRAWS; Start 08/02/19 at 15:00 Sodium Chloride (Normal Saline Flush) 20 ml PRN Q5MIN PRN IV AFTER MEDS AND BLOOD DRAWS; Start 08/02/19 at 15:00 Sodium Chloride 100 meq/Potassium Phosphate 19 mmol/ Magnesium Sulfate 12 meq/Calcium Gluconate 15 meq/ Multivitamins 10 ml/Chromium/ Copper/Manganese/ Seleni/Zn 0.5 ml/ Insulin Human Regular 40 unit/ Potassium Chloride 20 meq/ Total Parenteral Nutrition/Amino Acids/Dextrose/ Fat Emulsion Intravenous 1,400 ml @ 58.333 mls/ hr TPN CONT IV Last administered on 08/03/19at 21:20; Start 08/03/19 at 22:00; Stop 08/04/19 at 21:59; Status DC Lidocaine HCl (Buffered Lidocaine 1%) 3 ml STK-MED ONCE .ROUTE ; Start 08/03/19 at 13:16; Stop 08/03/19 at 13:16; Status DC Lidocaine HCl (Buffered Lidocaine 1%) 6 ml 1X ONCE INJ Last administered on 08/03/19at 13:45; Start 08/03/19 at 13:30; Stop 08/03/19 at 13:31; Status DC Albumin Human 100 ml @ 100 mls/hr 1X ONCE IV Last administered on 08/03/19at 15:41; Start 08/03/19 at 15:00; Stop 08/03/19 at 15:59; Status DC Albumin Human 50 ml @ 50 mls/hr 1X ONCE IV Last administered on 08/03/19at 15:00; Start 08/03/19 at 15:00; Stop 08/03/19 at 15:59; Status DC Info (PHARMACY MONITORING -- do not chart) 1 each PRN DAILY PRN MC SEE COMMENTS; Start 08/04/19 at 11:30; Status Cancel Info (PHARMACY MONITORING -- do not chart) 1 each PRN DAILY PRN MC SEE COMMENTS; Start 08/04/19 at 11:30; Status UNV Sodium Chloride 100 meq/Potassium Phosphate 10 mmol/ Magnesium Sulfate 12 meq/Calcium Gluconate 15 meq/ Multivitamins 10 ml/Chromium/ Copper/Manganese/ Seleni/Zn 0.5 ml/ Insulin Human Regular 35 unit/ Potassium Chloride 20 meq/ Total Parenteral Nutrition/Amino Acids/Dextrose/ Fat Emulsion Intravenous 1,400 ml @ 58.333 mls/ hr TPN CONT IV Last administered on 08/04/19at 22:10; Start 08/04/19 at 22:00; Stop 08/05/19 at 21:59; Status DC Sodium Chloride 100 meq/Potassium Phosphate 5 mmol/ Magnesium Sulfate 12 meq/Calcium Gluconate 15 meq/ Multivitamins 10 ml/Chromium/ Copper/Manganese/ Seleni/Zn 0.5 ml/ Insulin Human Regular 35 unit/ Potassium Chloride 20 meq/ Total Parenteral Nutrition/Amino Acids/Dextrose/ Fat Emulsion Intravenous 1,400 ml @ 58.333 mls/ hr TPN CONT IV Last administered on 08/05/19at 22:59; Start 08/05/19 at 22:00; Stop 08/06/19 at 21:59; Status DC Sodium Chloride 1,000 ml @ 1,000 mls/hr Q1H PRN IV hypotension; Start 08/06/19 at 08:27; Stop 08/06/19 at 14:26; Status DC Albumin Human 200 ml @ 200 mls/hr 1X PRN PRN IV Hypotension Last administered on 08/06/19at 09:18; Start 08/06/19 at 08:30; Stop 08/06/19 at 14:29; Status DC Sodium Chloride 1,000 ml @ 400 mls/hr Q2H30M PRN IV PATENCY; Start 08/06/19 at 08:27; Stop 08/06/19 at 20:26; Status DC Info (PHARMACY MONITORING -- do not chart) 1 each PRN DAILY PRN MC SEE COMMENTS; Start 08/06/19 at 08:30; Status Cancel Info (PHARMACY MONITORING -- do not chart) 1 each PRN DAILY PRN MC SEE COMMENTS; Start 08/06/19 at 08:30; Stop 08/14/19 at 13:10; Status DC Sodium Chloride 100 meq/Potassium Chloride 40 meq/ Magnesium Sulfate 15 meq/Calcium Gluconate 15 meq/ Multivitamins 10 ml/Chromium/ Copper/Manganese/ Seleni/Zn 0.5 ml/ Insulin Human Regular 35 unit/ Total Parenteral Nutritio n/Amino Acids/Dextrose/ Fat Emulsion Intravenous 1,400 ml @ 58.333 mls/ hr TPN CONT IV Last administered on 08/06/19at 22:00; Start 08/06/19 at 22:00; Stop 08/07/19 at 21:59; Status DC Potassium Chloride/Water 100 ml @ 100 mls/hr 1X ONCE IV Last administered on 08/06/19at 17:28; Start 08/06/19 at 14:45; Stop 08/06/19 at 15:44; Status DC Sodium Chloride 100 meq/Potassium Chloride 40 meq/ Magnesium Sulfate 15 meq/Calcium Gluconate 15 meq/ Multivitamins 10 ml/Chromium/ Copper/Manganese/ Seleni/Zn 0.5 ml/ Insulin Human Regular 35 unit/ Total Parenteral Nutrition/Amino Acids/Dextrose/ Fat Emulsion Intravenous 1,400 ml @ 58.333 mls/ hr TPN CONT IV Last administered on 08/07/19at 22:46; Start 08/07/19 at 22:00; Stop 08/08/19 at 21:59; Status DC Sodium Chloride 100 meq/Potassium Chloride 40 meq/ Magnesium Sulfate 20 meq/Calcium Gluconate 15 meq/ Multivitamins 10 ml/Chromium/ Copper/Manganese/ Seleni/Zn 0.5 ml/ Insulin Human Regular 35 unit/ Total Parenteral Nutrition/Amino Acids/Dextrose/ Fat Emulsion Intravenous 1,400 ml @ 58.333 mls/ hr TPN CONT IV Last administered on 08/08/19at 22:31; Start 08/08/19 at 22:00; Stop 08/09/19 at 21:59; Status DC Fentanyl Citrate (Fentanyl 2ml Vial) 50 mcg PRN Q2HR PRN IVP PAIN Last administered on 08/15/19at 13:32; Start 08/08/19 at 21:00; Stop 08/16/19 at 12:53; Status DC Fentanyl Citrate (Fentanyl 2ml Vial) 25 mcg PRN Q2HR PRN IVP PAIN; Start 08/08/19 at 21:00; Stop 08/16/19 at 12:54; Status DC Enoxaparin Sodium (Lovenox 100mg Syringe) 100 mg Q12HR SQ ; Start 08/09/19 at 21:00; Status UNV Amino Acids/ Glycerin/ Electrolytes 1,000 ml @ 75 mls/hr [id number] IV ; Start 08/08/19 at 21:15; Status UNV Sodium Chloride 1,000 ml @ 1,000 mls/hr Q1H PRN IV hypotension; Start 08/09/19 at 07:56; Stop 08/09/19 at 13:55; Status DC Albumin Human 200 ml @ 200 mls/hr 1X PRN PRN IV Hypotension Last administered on 08/09/19at 08:40; Start 08/09/19 at 08:00; Stop 08/09/19 at 13:59; Status DC Sodium Chloride 1,000 ml @ 400 mls/hr Q2H30M PRN IV PATENCY; Start 08/09/19 at 07:56; Stop 08/09/19 at 19:55; Status DC Info (PHARMACY MONITORING -- do not chart) 1 each PRN DAILY PRN MC SEE COMMENTS; Start 08/09/19 at 08:00; Status UNV Info (PHARMACY MONITORING -- do not chart) 1 each PRN DAILY PRN MC SEE COMMENTS; Start 08/09/19 at 08:00; Status UNV Daptomycin 430 mg/ Sodium Chloride 50 ml @ 100 mls/hr Q24H IV Last administered on 08/09/19at 12:35; Start 08/09/19 at 09:00; Stop 08/09/19 at 12:49; Status DC Sodium Chloride 100 meq/Potassium Chloride 40 meq/ Magnesium Sulfate 20 meq/Calcium Gluconate 15 meq/ Multivitamins 10 ml/Chromium/ Copper/Manganese/ Seleni/Zn 0.5 ml/ Insulin Human Regular 35 unit/ Total Parenteral Nutrition/Amino Acids/Dextrose/ Fat Emulsion Intravenous 1,400 ml @ 58.333 mls/ hr TPN CONT IV Last administered on 08/09/19at 21:26; Start 08/09/19 at 22:00; Stop 08/10/19 at 21:59; Status DC Daptomycin 430 mg/ Sodium Chloride 50 ml @ 100 mls/hr Q48H IV ; Start 08/11/19 at 09:00; Stop 08/10/19 at 11:55; Status DC Sodium Chloride 100 meq/Potassium Chloride 40 meq/ Magnesium Sulfate 20 meq/Calcium Gluconate 15 meq/ Multivitamins 10 ml/Chromium/ Copper/Manganese/ Seleni/Zn 0.5 ml/ Insulin Human Regular 35 unit/ Total Parenteral Nutrition/Amino Acids/Dextrose/ Fat Emulsion Intravenous 1,400 ml @ 58.333 mls/ hr TPN CONT IV Last administered on 08/10/19at 22:27; Start 08/10/19 at 22:00; Stop 08/11/19 at 21:59; Status DC Daptomycin 430 mg/ Sodium Chloride 50 ml @ 100 mls/hr Q24H IV Last administered on 08/12/19at 15:07; Start 08/10/19 at 13:00; Stop 08/13/19 at 13:15; Status DC Sodium Chloride 100 meq/Potassium Chloride 40 meq/ Magnesium Sulfate 20 meq/Calcium Gluconate 10 meq/ Multivitamins 10 ml/Chromium/ Copper/Manganese/ Seleni/Zn 0.5 ml/ Insulin Human Regular 35 unit/ Total Parenteral Nutrition/Amino Acids/Dextrose/ Fat Emulsion Intravenous 1,400 ml @ 58.333 mls/ hr TPN CONT IV Last administered on 08/12/19at 00:06; Start 08/11/19 at 22:00; Stop 08/12/19 at 21:59; Status DC Alteplase, Recombinant (Cathflo For Central Catheter Clearance) 1 mg 1X ONCE INT CAT Last administered on 08/12/19at 11:44; Start 08/12/19 at 10:45; Stop 08/12/19 at 10:46; Status DC Ondansetron HCl (Zofran) 4 mg PRN Q6HRS PRN IV NAUSEA/VOMITING; Start 08/15/19 at 07:00; Stop 08/16/19 at 06:59; Status DC Fentanyl Citrate (Fentanyl 2ml Vial) 25 mcg PRN Q5MIN PRN IV MILD PAIN 1-3; Start 08/15/19 at 07:00; Stop 08/16/19 at 06:59; Status DC Fentanyl Citrate (Fentanyl 2ml Vial) 50 mcg PRN Q5MIN PRN IV MODERATE TO SEVERE PAIN Last administered on 08/15/19at 10:17; Start 08/15/19 at 07:00; Stop 08/16/19 at 06:59; Status DC Ringer's Solution 1,000 ml @ 30 mls/hr Q24H IV ; Start 08/15/19 at 07:00; Stop 08/15/19 at 18:59; Status DC Lidocaine HCl (Xylocaine-Mpf 1% 2ml Vial) 2 ml PRN 1X PRN ID PRIOR TO IV START; Start 08/15/19 at 07:00; Stop 08/16/19 at 06:59; Status DC Prochlorperazine Edisylate (Compazine) 5 mg PACU PRN PRN IV NAUSEA, MRX1; Start 08/15/19 at 07:00; Stop 08/16/19 at 06:59; Status DC Sodium Acetate 50 meq/Potassium Acetate 55 meq/ Magnesium Sulfate 20 meq/Calcium Gluconate 10 meq/ Multivitamins 10 ml/Chromium/ Copper/Manganese/ Seleni/Zn 0.5 ml/ Insulin Human Regular 35 unit/ Total Parenteral Nutrition/Amino Acids /Dextrose/ Fat Emulsion Intravenous 1,400 ml @ 58.333 mls/ hr TPN CONT IV ; Start 08/12/19 at 22:00; Stop 08/12/19 at 14:15; Status DC Sodium Acetate 50 meq/Potassium Acetate 55 meq/ Magnesium Sulfate 20 meq/Calcium Gluconate 10 meq/ Multivitamins 10 ml/Chromium/ Copper/Manganese/ Seleni/Zn 0.5 ml/ Insulin Human Regular 35 unit/ Total Parenteral Nutrition/Amino Acids/Dextrose/ Fat Emulsion Intravenous 1,800 ml @ 75 mls/hr TPN CONT IV Last administered on 08/12/19at 22:38; Start 08/12/19 at 22:00; Stop 08/13/19 at 21:59; Status DC Sodium Chloride 1,000 ml @ 1,000 mls/hr Q1H PRN IV hypotension; Start 08/12/19 at 15:31; Stop 08/12/19 at 21:30; Status DC Diphenhydramine HCl (Benadryl) 25 mg 1X PRN PRN IV ITCHING; Start 08/12/19 at 15:45; Stop 08/13/19 at 15:44; Status DC Diphenhydramine HCl (Benadryl) 25 mg 1X PRN PRN IV ITCHING; Start 08/12/19 at 15:45; Stop 08/13/19 at 15:44; Status DC Sodium Chloride 1,000 ml @ 400 mls/hr Q2H30M PRN IV PATENCY; Start 08/12/19 at 15:31; Stop 08/13/19 at 03:30; Status DC Info (PHARMACY MONITORING -- do not chart) 1 each PRN DAILY PRN MC SEE COMMENTS; Start 08/12/19 at 15:45; Stop 09/13/19 at 14:14; Status DC Sodium Acetate 50 meq/Potassium Acetate 55 meq/ Magnesium Sulfate 20 meq/Calcium Gluconate 10 meq/ Multivitamins 10 ml/Chromium/ Copper/Manganese/ Seleni/Zn 0.5 ml/ Insulin Human Regular 35 unit/ Total Parenteral Nutrition/Amino Acids/ Dextrose/ Fat Emulsion Intravenous 1,800 ml @ 75 mls/hr TPN CONT IV Last administered on 08/13/19at 22:03; Start 08/13/19 at 22:00; Stop 08/14/19 at 21:59; Status DC Daptomycin 430 mg/ Sodium Chloride 50 ml @ 100 mls/hr Q24H IV Last administered on 08/18/19at 13:00; Start 08/13/19 at 13:00; Stop 08/18/19 at 20:58; Status DC Heparin Sodium (Porcine) 1000 unit/Sodium Chloride 1,001 ml @ 1,001 mls/hr 1X ONCE IRR ; Start 08/15/19 at 06:00; Stop 08/15/19 at 06:59; Status DC Potassium Acetate 55 meq/Magnesium Sulfate 20 meq/ Calcium Gluconate 10 meq/ Multivitamins 10 ml/Chromium/ Copper/Manganese/ Seleni/Zn 0.5 ml/ Insulin Human Regular 35 unit/ Total Parenteral Nutrition/Amino Acids/Dextrose/ Fat Emulsion Intravenous 1,920 ml @ 80 mls/hr TPN CONT IV Last administered on 08/14/19at 22:10; Start 08/14/19 at 22:00; Stop 08/15/19 at 21:59; Status DC Dexamethasone Sodium Phosphate (Decadron) 4 mg STK-MED ONCE .ROUTE ; Start 08/15/19 at 10:56; Stop 08/15/19 at 10:57; Status DC Ondansetron HCl (Zofran) 4 mg STK-MED ONCE .ROUTE ; Start 08/15/19 at 10:56; Stop 08/15/19 at 10:57; Status DC Rocuronium Pax (Zemuron) 50 mg STK-MED ONCE .ROUTE ; Start 08/15/19 at 10:56; Stop 08/15/19 at 10:57; Status DC Fentanyl Citrate (Fentanyl 2ml Vial) 100 mcg STK-MED ONCE .ROUTE ; Start 08/15/19 at 10:56; Stop 08/15/19 at 10:57; Status DC Bupivacaine HCl/ Epinephrine Bitart (Sensorcain-Epi 0.5%-1:[id number] Mpf) 30 ml STK-MED ONCE .ROUTE Last administered on 08/15/19at 12:01; Start 08/15/19 at 10:58; Stop 08/15/19 at 10:58; Status DC Cellulose (Surgicel Hemostat 2x14) 1 each STK-MED ONCE .ROUTE ; Start 08/15/19 at 10:58; Stop 08/15/19 at 10:59; Status DC Iohexol (Omnipaque 300 Mg/ml) 50 ml STK-MED ONCE .ROUTE ; Start 08/15/19 at 10:58; Stop 08/15/19 at 10:59; Status DC Cellulose (Surgicel Hemostat 4x8) 1 each STK-MED ONCE .ROUTE ; Start 08/15/19 at 10:58; Stop 08/15/19 at 10:59; Status DC Bisacodyl (Dulcolax Supp) 10 mg STK-MED ONCE .ROUTE ; Start 08/15/19 at 10:59; Stop 08/15/19 at 10:59; Status DC Heparin Sodium (Porcine) 1000 unit/Sodium Chloride 1,001 ml @ 1,001 mls/hr 1X ONCE IRR ; Start 08/15/19 at 12:00; Stop 08/15/19 at 12:59; Status DC Propofol 20 ml @ As Directed STK-MED ONCE IV ; Start 08/15/19 at 11:05; Stop 08/15/19 at 11:05; Status DC Sevoflurane (Ultane) 90 ml STK-MED ONCE IH ; Start 08/15/19 at 11:05; Stop 08/15/19 at 11:05; Status DC Sevoflurane (Ultane) 60 ml STK-MED ONCE IH ; Start 08/15/19 at 12:26; Stop 08/15/19 at 12:27; Status DC Propofol 20 ml @ As Directed STK-MED ONCE IV ; Start 08/15/19 at 12:26; Stop 08/15/19 at 12:27; Status DC Phenylephrine HCl (PHENYLEPHRINE in 0.9% NACL PF) 1 mg STK-MED ONCE IV ; Start 08/15/19 at 12:34; Stop 08/15/19 at 12:34; Status DC Heparin Sodium (Porcine) (Heparin Sodium) 5,000 unit Q12HR SQ Last administered on 08/24/19at 20:57; Start 08/15/19 at 21:00; Stop 08/25/19 at 09:59; Status DC Sodium Chloride (Normal Saline Flush) 3 ml QSHIFT PRN IV AFTER MEDS AND BLOOD DRAWS; Start 08/15/19 at 13:45 Naloxone HCl (Narcan) 0.4 mg PRN Q2MIN PRN IV SEE INSTRUCTIONS Last ad ministered on 09/24/19at 15:15; Start 08/15/19 at 13:45 Sodium Chloride 1,000 ml @ 25 mls/hr Q24H IV Last administered on 09/13/19at 13:37; Start 08/15/19 at 13:37; Stop 09/16/19 at 13:09; Status DC Naloxone HCl (Narcan) 0.4 mg PRN Q2MIN PRN IV SEE INSTRUCTIONS; Start 08/15/19 at 14:30; Status UNV Sodium Chloride 1,000 ml @ 25 mls/hr Q24H IV ; Start 08/15/19 at 14:30; Status UNV Hydromorphone HCl 30 ml @ 0 mls/hr CONT PRN PRN IV PER PROTOCOL Last administered on 08/20/19at 16:08; Start 08/15/19 at 14:30; Stop 08/22/19 at 08:55; Status DC Potassium Acetate 55 meq/Magnesium Sulfate 20 meq/ Calcium Gluconate 10 meq/ Multivitamins 10 ml/Chromium/ Copper/Manganese/ Seleni/Zn 0.5 ml/ Insulin Human Regular 35 unit/ Total Parenteral Nutrition/Amino Acids/Dextrose/ Fat Emulsion Intravenous 1,920 ml @ 80 mls/hr TPN CONT IV Last administered on 08/15/19at 22:01; Start 08/15/19 at 22:00; Stop 08/16/19 at 21:59; Status DC Bumetanide (Bumex) 2 mg [id number] IV Last administered on 08/19/19at 13:50; Start 08/16/19 at 14:00; Stop 08/20/19 at 14:10; Status DC Meropenem 1 gm/ Sodium Chloride 100 ml @ 200 mls/hr Q8HRS IV Last administered on 09/09/19at 05:53; Start 08/16/19 at 14:00; Stop 09/09/19 at 09:31; Status DC Potassium Acetate 55 meq/Magnesium Sulfate 20 meq/ Calcium Gluconate 10 meq/ Multivitamins 10 ml/Chromium/ Copper/Manganese/ Seleni/Zn 0.5 ml/ Insulin Human Regular 35 unit/ Total Parenteral Nutrition/Amino Acids/Dextrose/ Fat Emulsion Intravenous 1,920 ml @ 80 mls/hr TPN CONT IV Last administered on 08/16/19at 2 2:02; Start 08/16/19 at 22:00; Stop 08/17/19 at 21:59; Status DC Hydromorphone HCl (Dilaudid Standard AUTOMATIC BLOCKER) 12 mg STK-MED ONCE IV ; Start 08/15/19 at 14:35; Stop 08/16/19 at 13:53; Status DC Artificial Tears (Artificial Tears) 1 drop PRN Q15MIN PRN OU DRY EYE Last administered on 09/16/19at 10:08; Start 08/17/19 at 05:30 Hydromorphone HCl (Dilaudid Standard AUTOMATIC BLOCKER) 12 mg STK-MED ONCE IV ; Start 08/16/19 at 12:05; Stop 08/17/19 at 09:15; Status DC Potassium Acetate 65 meq/Magnesium Sulfate 20 meq/ Calcium Gluconate 10 meq/ Multivitamins 10 ml/Chromium/ Copper/Manganese/ Seleni/Zn 0.5 ml/ Insulin Human Regular 30 unit/ Total Parenteral Nutrition/Amino Acids/Dextrose/ Fat Emulsion Intravenous 1,920 ml @ 80 mls/hr TPN CONT IV Last administered on 08/17/19at 22:22; Start 08/17/19 at 22:00; Stop 08/18/19 at 21:59; Status DC Cyclobenzaprine HCl (Flexeril) 10 mg PRN Q6HRS PRN PO MUSCLE SPASMS; Start 08/18/19 at 10:45 Potassium Acetate 55 meq/Magnesium Sulfate 20 meq/ Calcium Gluconate 10 meq/ Multivitamins 10 ml/Chromium/ Copper/Manganese/ Seleni/Zn 0.5 ml/ Insulin Human Regular 30 unit/ Total Parenteral Nutrition/Amino Acids/Dextrose/ Fat Emulsion Intravenous 1,920 ml @ 80 mls/hr TPN CONT IV Last administered on 08/19/19at 01:00; Start 08/18/19 at 22:00; Stop 08/19/19 at 21:59; Status DC Magnesium Sulfate 50 ml @ 25 mls/hr 1X ONCE IV Last administered on 08/18/19at 17:18; Start 08/18/19 at 12:45; Stop 08/18/19 at 14:44; Status DC Potassium Chloride/Water 100 ml @ 100 mls/hr 1X ONCE IV Last administered on 08/19/19at 11:27; Start 08/19/19 at 12:00; Stop 08/19/19 at 12:59; Status DC Hydromorphone HCl (Dilaudid Standard AUTOMATIC BLOCKER) 12 mg STK-MED ONCE IV ; Start 08/17/19 at 10:50; Stop 08/19/19 at 11:02; Status DC Hydromorphone HCl (Dilaudid Standard AUTOMATIC BLOCKER) 12 mg STK-MED ONCE IV ; Start 08/18/19 at 13:47; Stop 08/19/19 at 11:03; Status DC Potassium Acetate 30 meq/Magnesium Sulfate 20 meq/ Calcium Gluconate 10 meq/ Multivitamins 10 ml/Chromium/ Copper/Manganese/ Seleni/Zn 0.5 ml/ Insulin Human Regular 30 unit/ Potassium Chloride 30 meq/ Total Parenteral Nutrition/Amino Acids/Dextrose/ Fat Emulsion Intravenous 1,920 ml @ 80 mls/hr TPN CONT IV Last administered on 08/19/19at 22:34; Start 08/19/19 at 22:00; Stop 08/20/19 at 21:59; Status DC Potassium Chloride/Water 100 ml @ 100 mls/hr Q1H IV Last administered on 08/20/19at 13:05; Start 08/20/19 at 07:00; Stop 08/20/19 at 10:59; Status DC Magnesium Sulfate 50 ml @ 25 mls/hr 1X ONCE IV Last administered on 08/20/19at 10:34; Start 08/20/19 at 10:30; Stop 08/20/19 at 12:29; Status DC Potassium Chloride 75 meq/ Magnesium Sulfate 20 meq/Calcium Gluconate 10 meq/ Multivitamins 10 ml/Chromium/ Copper/Manganese/ Seleni/Zn 0.5 ml/ Insulin Human Regular 30 unit/ Total Parenteral Nutrition/Amino Acids/Dextrose/ Fat Emulsion Intravenous 1,920 ml @ 80 mls/hr TPN CONT IV Last administered on 08/20/19at 21:51; Start 08/20/19 at 22:00; Stop 08/21/19 at 22:00; Status DC Potassium Chloride 75 meq/ Magnesium Sulfate 20 meq/Calcium Gluconate 10 meq/ Multivitamins 10 ml/Chromium/ Copper/Manganese/ Seleni/Zn 0.5 ml/ Insulin Human Regular 25 unit/ Total Parenteral Nutrition/Amino Acids/Dextrose/ Fat Emulsion Intravenous 1,920 ml @ 80 mls/hr TPN CONT IV Last administered on 08/21/19at 22:04; Start 08/21/19 at 22:00; Stop 08/22/19 at 21:59; Status DC Hydromorphone HCl (Dilaudid) 0.4 mg PRN Q4HRS PRN IVP PAIN Last administered on 08/22/19at 10:57; Start 08/22/19 at 09:00; Stop 08/22/19 at 18:59; Status DC Micafungin Sodium 100 mg/Dextrose 100 ml @ 100 mls/hr Q24H IV Last administered on 09/13/19at 12:17; Start 08/22/19 at 11:00; Stop 09/14/19 at 09:59; Status DC Daptomycin 485 mg/ Sodium Chloride 50 ml @ 100 mls/hr Q24H IV Last administere d on 08/29/19at 13:10; Start 08/22/19 at 11:00; Stop 08/30/19 at 07:44; Status DC Potassium Chloride 75 meq/ Magnesium Sulfate 15 meq/Calcium Gluconate 8 meq/ Multivitamins 10 ml/Chromium/ Copper/Manganese/ Seleni/Zn 0.5 ml/ Insulin Human Regular 25 unit/ Total Parenteral Nutrition/Amino Acids/Dextrose/ Fat Emulsion Intravenous 1,920 ml @ 80 mls/hr TPN CONT IV Last administered on 08/22/19at 23:08; Start 08/22/19 at 22:00; Stop 08/23/19 at 21:59; Status DC Haloperidol Lactate (Haldol Inj) 3 mg 1X ONCE IVP Last administered on 08/22/19at 14:37; Start 08/22/19 at 14:30; Stop 08/22/19 at 14:31; Status DC Hydromorphone HCl (Dilaudid) 1 mg PRN Q4HRS PRN IVP PAIN Last administered on 09/05/19at 06:25; Start 08/22/19 at 19:00; Stop 09/05/19 at 17:10; Status DC Potassium Chloride 75 meq/ Magnesium Sulfate 15 meq/Calcium Gluconate 8 meq/ Multivitamins 10 ml/Chromium/ Copper/Manganese/ Seleni/Zn 0.5 ml/ Insulin Human Regular 20 unit/ Total Parenteral Nutrition/Amino Acids/Dextrose/ Fat Emulsion Intravenous 1,920 ml @ 80 mls/hr TPN CONT IV Last administered on 08/23/19at 22:10; Start 08/23/19 at 22:00; Stop 08/24/19 at 21:59; Status DC Lidocaine HCl (Buffered Lidocaine 1%) 3 ml STK-MED ONCE .ROUTE ; Start 08/24/19 at 11:31; Stop 08/24/19 at 11:31; Status DC Lidocaine HCl (Buffered Lidocaine 1%) 3 ml STK-MED ONCE .ROUTE ; Start 08/24/19 at 12:28; Stop 08/24/19 at 12:29; Status DC Lidocaine HCl (Buffered Lidocaine 1%) 6 ml 1X ONCE INJ Last administered on 08/24/19at 12:53; Start 08/24/19 at 12:45; Stop 08/24/19 at 12:46; Status DC Potassium Chloride 75 meq/ Magnesium Sulfate 15 meq/Calcium Gluconate 8 meq/ Multivitamins 10 ml/Chromium/ Copper/Manganese/ Seleni/Zn 0.5 ml/ Insulin Human Regular 20 unit/ Total Parenteral Nutrition/Amino Acids/Dextrose/ Fat Emulsion Intravenous 1,920 ml @ 80 mls/hr TPN CONT IV Last administered on 08/24/19at 22:00; Start 08/24/19 at 22:00; Stop 08/25/19 at 21:59; Status DC Potassium Chloride 75 meq/ Magnesium Sulfate 15 meq/Calcium Gluconate 8 meq/ Multivitamins 10 ml/Chromium/ Copper/Manganese/ Seleni/Zn 0.5 ml/ Insulin Human Regular 15 unit/ Total Parenteral Nutrition/Amino Acids/Dextrose/ Fat Emulsion Intravenous 1,920 ml @ 80 mls/hr TPN CONT IV Last administered on 08/25/19at 22:28; Start 08/25/19 at 22:00; Stop 08/26/19 at 21:59; Status DC Vecuronium Pax (Norcuron Bolus) 6 mg PRN Q6HRS PRN IV VENT ASYNCHRONY; Start 08/25/19 at 19:15; Stop 08/25/19 at 19:35; Status DC Bumetanide (Bumex) 2 mg 1X ONCE IV Last administered on 08/25/19at 22:09; Start 08/25/19 at 19:45; Stop 08/25/19 at 19:46; Status DC Lidocaine HCl (Buffered Lidocaine 1%) 3 ml STK-MED ONCE .ROUTE ; Start 08/26/19 at 07:59; Stop 08/26/19 at 07:59; Status DC Midazolam HCl (Versed) 5 mg STK-MED ONCE .ROUTE ; Start 08/26/19 at 08:36; Stop 08/26/19 at 08:36; Status DC Fentanyl Citrate (Fentanyl 5ml Vial) 250 mcg STK-MED ONCE .ROUTE ; Start 08/26/19 at 08:36; Stop 08/26/19 at 08:37; Status DC Lidocaine HCl (Buffered Lidocaine 1%) 3 ml 1X ONCE IJ Last administered on 08/26/19at 09:30; Start 08/26/19 at 09:15; Stop 08/26/19 at 09:16; Status DC Midazolam HCl (Versed) 5 mg 1X ONCE IV Last administered on 08/26/19at 09:30; Start 08/26/19 at 09:15; Stop 08/26/19 at 09:16; Status DC Fentanyl Citrate (Fentanyl 5ml Vial) 250 mcg 1X ONCE IV Last administered on 08/26/19at 09:30; Start 08/26/19 at 09:15; Stop 08/26/19 at 09:16; Status DC Bumetanide (Bumex) 2 mg DAILY IV Last administered on 09/05/19at 08:07; Start 08/26/19 at 10:00; Stop 09/05/19 at 17:15; Status DC Potassium Chloride 75 meq/ Magnesium Sulfate 15 meq/ Multivitamins 10 ml/Chromium/ Copper/Manganese/ Seleni/Zn 0.5 ml/ Insulin Human Regular 15 unit/ Total Parenteral Nutrition/Amino Acids/Dextrose/ Fat Emulsion Intravenous 1,920 ml @ 80 mls/hr TPN CONT IV Last administered on 08/26/19at 21:59; Start 08/26/19 at 22:00; Stop 08/27/19 at 21:59; Status DC Metoclopramide HCl (Reglan Vial) 10 mg PRN Q3HRS PRN IVP NAUSEA/VOMITING-3rd choice Last administered on 09/01/19at 04:25; Start 08/27/19 at 16:45 Potassium Chloride 75 meq/ Magnesium Sulfate 15 meq/ Multivitamins 10 ml/Chromium/ Copper/Manganese/ Seleni/Zn 0.5 ml/ Insulin Human Regular 15 unit/ Total Parenteral Nutrition/Amino Acids/Dextrose/ Fat Emulsion Intravenous 1,920 ml @ 80 mls/hr TPN CONT IV Last administered on 08/27/19at 22:41; Start 08/27/19 at 22:00; Stop 08/28/19 at 21:59; Status DC Magnesium Sulfate 50 ml @ 25 mls/hr 1X ONCE IV Last administered on 08/28/19at 10:44; Start 08/28/19 at 09:00; Stop 08/28/19 at 10:59; Status DC Potassium Chloride/Water 100 ml @ 100 mls/hr 1X ONCE IV Last administered on 08/28/19at 09:37; Start 08/28/19 at 09:00; Stop 08/28/19 at 09:59; Status DC Duloxetine HCl (Cymbalta) 30 mg DAILY PO Last administered on 08/29/19at 09:48; Start 08/28/19 at 14:00; Stop 08/31/19 at 10:25; Status DC Potassium Chloride 80 meq/ Magnesium Sulfate 20 meq/ Multivitamins 10 ml/ Chromium/ Copper/Manganese/ Seleni/Zn 0.5 ml/ Insulin Human Regular 15 unit/ Total Parenteral Nutrition/Amino Acids/Dextrose/ Fat Emulsion Intravenous 1,920 ml @ 80 mls/hr TPN CONT IV Last administered on 08/28/19at 21:42; Start 08/28/19 at 22:00; Stop 08/29/19 at 21:59; Status DC Potassium Chloride 80 meq/ Magnesium Sulfate 20 meq/ Multivitamins 10 ml/Chromium/ Copper/Manganese/ Seleni/Zn 0.5 ml/ Insulin Human Regular 15 unit/ Total Parenteral Nutrition/Amino Acids/Dextrose/ Fat Emulsion Intravenous 1,920 ml @ 80 mls/hr TPN CONT IV Last administered on 08/29/19at 22:20; Start 08/29/19 at 22:00; Stop 08/30/19 at 21:59; Status DC Lidocaine HCl (Buffered Lidocaine 1%) 3 ml STK-MED ONCE .ROUTE ; Start 08/30/19 at 09:54; Stop 08/30/19 at 09:55; Status DC Hydromorphone HCl (Dilaudid Standard AUTOMATIC BLOCKER) 12 mg STK-MED ONCE IV ; Start 08/19/19 at 15:50; Stop 08/30/19 at 11:24; Status DC Potassium Chloride 80 meq/ Magnesium Sulfate 20 meq/ Multivitamins 10 ml/Chromium/ Copper/Manganese/ Seleni/Zn 0.5 ml/ Insulin Human Regular 15 unit/ Total Parenteral Nutrition/Amino Acids/Dextrose/ Fat Emulsion Intravenous 1,920 ml @ 80 mls/hr TPN CONT IV Last administered on 08/30/19at 21:40; Start 08/30/19 at 22:00; Stop 08/31/19 at 21:59; Status DC Lidocaine HCl (Buffered Lidocaine 1%) 6 ml 1X ONCE INJ Last administered on 08/30/19at 14:15; Start 08/30/19 at 14:15; Stop 08/30/19 at 14:16; Status DC Potassium Chloride 80 meq/ Magnesium Sulfate 20 meq/ Multivitamins 10 ml/Chromium/ Copper/Manganese/ Seleni/Zn 1 ml/ Insulin Human Regular 15 unit/ Total Parenteral Nutrition/Amino Acids/Dextrose/ Fat Emulsion Intravenous 1,920 ml @ 80 mls/hr TPN CONT IV Last administered on 08/31/19at 22:04; Start 08/31/19 at 22:00; Stop 09/01/19 at 21:59; Status DC Potassium Chloride/Water 100 ml @ 100 mls/hr 1X ONCE IV Last administered on 09/01/19at 11:34; Start 09/01/19 at 11:00; Stop 09/01/19 at 11:59; Status DC Potassium Chloride 90 meq/ Magnesium Sulfate 20 meq/ Multivitamins 10 ml/Chromium/ Copper/Manganese/ Seleni/Zn 1 ml/ Insulin Human Regular 15 unit/ Total Parenteral Nutrition/Amino Acids/Dextrose/ Fat Emulsion Intravenous 1,920 ml @ 80 mls/hr TPN CONT IV Last administered on 09/01/19at 22:57; Start 09/01/19 at 22:00; Stop 09/02/19 at 21:59; Status DC Potassium Chloride 90 meq/ Magnesium Sulfate 20 meq/ Multivitamins 10 ml/Chromium/ Copper/Manganese/ Seleni/Zn 1 ml/ Insulin Human Regular 15 unit/ Total Parenteral Nutrition/Amino Acids/Dextrose/ Fat Emulsion Intravenous 1,920 ml @ 80 mls/hr TPN CONT IV Last administered on 09/02/19at 22:48; Start 09/02/19 at 22:00; Stop 09/03/19 at 21:59; Status DC Potassium Chloride 90 meq/ Magnesium Sulfate 20 meq/ Multivitamins 10 ml/Chromium/ Copper/Manganese/ Seleni/Zn 1 ml/ Insulin Human Regular 15 unit/ Total Parenteral Nutrition/Amino Acids/Dextrose/ Fat Emulsion Intravenous 1,890 ml @ 78.75 mls/ hr TPN CONT IV Last administered on 09/03/19at 22:15; Start 09/03/19 at 22:00; Stop 09/04/19 at 21:59; Status DC Linezolid/Dextrose 300 ml @ 300 mls/hr Q12HR IV Last administered on 09/06/19at 21:08; Start 09/04/19 at 09:00; Stop 09/07/19 at 08:11; Status DC Daptomycin 450 mg/ Sodium Chloride 50 ml @ 100 mls/hr Q24H IV Last administered on 09/07/19at 09:25; Start 09/04/19 at 09:00; Stop 09/08/19 at 08:30; Status DC Potassium Chloride 90 meq/ Magnesium Sulfate 20 meq/ Multivitamins 10 ml/Chromium/ Copper/Manganese/ Seleni/Zn 1 ml/ Insulin Human Regular 15 unit/ Total Parenteral Nutrition/Amino Acids/Dextrose/ Fat Emulsion Intravenous 1,890 ml @ 78.75 mls/ hr TPN CONT IV Last administered on 09/04/19at 21:34; Start 09/04/19 at 22:00; Stop 09/05/19 at 21:59; Status DC Lorazepam (Ativan Inj) 2 mg STK-MED ONCE .ROUTE ; Start 09/04/19 at 14:58; Stop 09/04/19 at 14:58; Status DC Metoprolol Tartrate (Lopressor Vial) 5 mg 1X ONCE IVP Last administered on 09/04/19at 15:31; Start 09/04/19 at 15:15; Stop 09/04/19 at 15:16; Status DC Lorazepam (Ativan Inj) 2 mg 1X ONCE IVP Last administered on 09/04/19at 15:30; Start 09/04/19 at 15:15; Stop 09/04/19 at 15:16; Status DC Enoxaparin Sodium (Lovenox 40mg Syringe) 40 mg Q24H SQ Last administered on 09/23/19at 17:44; Start 09/04/19 at 17:00; Stop 09/25/19 at 06:50; Status DC Lorazepam (Ativan Inj) 1 mg PRN Q4HRS PRN IVP ANXIETY / AGITATION MILD-MOD Last administered on 09/18/19at 15:55; Start 09/04/19 at 19:15; Stop 09/20/19 at 11:45; Status DC Lorazepam (Ativan Inj) 2 mg PRN Q4HRS PRN IVP ANXIETY / AGITATION SEVERE Last administered on 09/19/19at 07:55; Start 09/04/19 at 19:15; Stop 09/20/19 at 11:45; Status DC Fentanyl Citrate (Fentanyl 2ml Vial) 50 mcg PRN Q4HRS PRN IVP SEVERE PAIN Last administered on 09/27/19at 04:40; Start 09/05/19 at 13:15 Fentanyl Citrate (Fentanyl 2ml Vial) 25 mcg PRN Q4HRS PRN IVP MODERATE PAIN Last administered on 09/29/19at 22:50; Start 09/05/19 at 13:15 Potassium Chloride 90 meq/ Magnesium Sulfate 20 meq/ Multivitamins 10 ml/Chromium/ Copper/Manganese/ Seleni/Zn 1 ml/ Insulin Human Regular 15 unit/ Total Parenteral Nutrition/Amino Acids/Dextrose/ Fat Emulsion Intravenous 1,890 ml @ 78.75 mls/ hr TPN CONT IV Last administered on 09/05/19at 22:18; Start 09/05/19 at 22:00; Stop 09/06/19 at 21:59; Status DC Furosemide (Lasix) 40 mg 1X ONCE IVP Last administered on 09/05/19at 21:51; Start 09/05/19 at 21:45; Stop 09/05/19 at 21:48; Status DC Albumin Human 100 ml @ 100 mls/hr 1X PRN PRN IV SEE COMMENTS; Start 09/06/19 at 01:30 Furosemide (Lasix) 40 mg [id number] IVP Last administered on 09/21/19at 08:04; Start 09/06/19 at 14:00; Stop 09/21/19 at 13:07; Status DC Potassium Chloride 90 meq/ Magnesium Sulfate 20 meq/ Multivitamins 10 ml/Chromiu m/ Copper/Manganese/ Seleni/Zn 1 ml/ Insulin Human Regular 15 unit/ Total Parenteral Nutrition/Amino Acids/Dextrose/ Fat Emulsion Intravenous 1,800 ml @ 75 mls/hr TPN CONT IV Last administered on 09/06/19at 22:31; Start 09/06/19 at 22:00; Stop 09/07/19 at 21:59; Status DC Potassium Chloride 90 meq/ Magnesium Sulfate 20 meq/ Multivitamins 10 ml/Chromium/ Copper/Manganese/ Seleni/Zn 1 ml/ Insulin Human Regular 15 unit/ Total Parenteral Nutrition/Amino Acids/Dextrose/ Fat Emulsion Intravenous 1,800 ml @ 75 mls/hr TPN CONT IV Last administered on 09/07/19at 22:28; Start 09/07/19 at 22:00; Stop 09/08/19 at 21:59; Status DC Potassium Chloride 110 meq/ Magnesium Sulfate 20 meq/ Multivitamins 10 ml/Chromium/ Copper/Manganese/ Seleni/Zn 1 ml/ Insulin Human Regular 15 unit/ Total Parenteral Nutrition/Amino Acids/Dextrose/ Fat Emulsion Intravenous 1,800 ml @ 75 mls/hr TPN CONT IV Last administered on 09/08/19at 22:01; Start 09/08/19 at 22:00; Stop 09/09/19 at 21:59; Status DC Saliva Substitute (Biotene Moisturizing Mouth) 2 spray PRN Q15MIN PRN PO DRY MOUTH; Start 09/08/19 at 11:00 Potassium Chloride 110 meq/ Magnesium Sulfate 20 meq/ Multivitamins 10 ml/Chromium/ Copper/Manganese/ Seleni/Zn 1 ml/ Insulin Human Regular 15 unit/ Total Parenteral Nutrition/Amino Acids/Dextrose/ Fat Emulsion Intravenous 1,800 ml @ 75 mls/hr TPN CONT IV Last administered on 09/09/19at 22:21; Start 09/09/19 at 22:00; Stop 09/10/19 at 21:59; Status DC Potassium Chloride 110 meq/ Magnesium Sulfate 20 meq/ Multivitamins 10 ml/Chromium/ Copper/Manganese/ Seleni/Zn 1 ml/ Insulin Human Regular 15 unit/ Total Parenteral Nutrition/Amino Acids/Dextrose/ Fat Emulsion Intravenous 1,800 ml @ 75 mls/hr TPN CONT IV Last administered on 09/10/19at 22:04; Start 09/10/19 at 22:00; Stop 09/11/19 at 21:59; Status DC Potassium Chloride 110 meq/ Magnesium Sulfate 20 meq/ Multivitamins 10 ml/Chromium/ Copper/Manganese/ Seleni/Zn 1 ml/ Insulin Human Regular 15 unit/ Total Parenteral Nutrition/Amino Acids/Dextrose/ Fat Emulsion Intravenous 1,800 ml @ 75 mls/hr TPN CONT IV Last administered on 09/11/19at 22:48; Start 09/11/19 at 22:00; Stop 09/12/19 at 21:59; Status DC Potassium Chloride 70 meq/ Magnesium Sulfate 20 meq/ Multivitamins 10 ml/Chromium/ Copper/Manganese/ Seleni/Zn 1 ml/ Insulin Human Regular 15 unit/ Total Parenteral Nutrition/Amino Acids/Dextrose/ Fat Emulsion Intravenous 1,800 ml @ 75 mls/hr TPN CONT IV Last administered on 09/12/19at 21:39; Start 09/12/19 at 22:00; Stop 09/13/19 at 21:59; Status DC Meropenem 500 mg/ Sodium Chloride 50 ml @ 100 mls/hr Q6HRS IV Last administered on 09/14/19at 06:02; Start 09/12/19 at 18:00; Stop 09/14/19 at 09:59; Status DC Barium Sulfate (Varibar Thin Liquid Apple) 148 gm 1X ONCE PO ; Start 09/13/19 at 11:45; Stop 09/13/19 at 11:49; Status DC Potassium Chloride 70 meq/ Magnesium Sulfate 20 meq/ Multivitamins 10 ml/Chromium/ Copper/Manganese/ Seleni/Zn 1 ml/ Insulin Human Regular 15 unit/ Total Parenteral Nutrition/Amino Acids/Dextrose/ Fat Emulsion Intravenous 1,800 ml @ 75 mls/hr TPN CONT IV Last administered on 09/13/19at 22:27; Start 09/13/19 at 22:00; Stop 09/14/19 at 21:59; Status DC Piperacillin Sod/ Tazobactam Sod 3.375 gm/Sodium Chloride 50 ml @ 100 mls/hr Q6HRS IV Last administered on 09/22/19at 06:10; Start 09/14/19 at 12:00; Stop 09/22/19 at 07:26; Status DC Potassium Chloride 70 meq/ Magnesium Sulfate 20 meq/ Multivitamins 10 ml/Chromium/ Copper/Manganese/ Seleni/Zn 1 ml/ Insulin Human Regular 15 unit/ Total Parenteral Nutrition/Amino Acids/Dextrose/ Fat Emulsion Intravenous 1,800 ml @ 75 mls/hr TPN CONT IV Last administered on 09/14/19at 22:03; Start 09/14/19 at 22:00; Stop 09/15/19 at 21:59; Status DC Potassium Chloride 70 meq/ Magnesium Sulfate 20 meq/ Multivitamins 10 ml/Chromium/ Copper/Manganese/ Seleni/Zn 1 ml/ Insulin Human Regular 15 unit/ Total Parenteral Nutrition/Amino Acids/Dextrose/ Fat Emulsion Intravenous 1,800 ml @ 75 mls/hr TPN CONT IV Last administered on 09/15/19at 22:33; Start 09/15/19 at 22:00; Stop 09/16/19 at 21:59; Status DC Potassium Chloride 70 meq/ Magnesium Sulfate 20 meq/ Multivitamins 10 ml/Chromium/ Copper/Manganese/ Seleni/Zn 1 ml/ Insulin Human Regular 15 unit/ Total Parenteral Nutrition/Amino Acids/Dextrose/ Fat Emulsion Intravenous 1,800 ml @ 75 mls/hr TPN CONT IV Last administered on 09/16/19at 23:13; Start 09/16/19 at 22:00; Stop 09/17/19 at 21:59; Status DC Potassium Chloride 80 meq/ Magnesium Sulfate 20 meq/ Multivitamins 10 ml/Chromium/ Copper/Manganese/ Seleni/Zn 1 ml/ Insulin Human Regular 15 unit/ Total Parenteral Nutrition/Amino Acids/Dextrose/ Fat Emulsion Intravenous 1,800 ml @ 75 mls/hr TPN CONT IV Last administered on 09/17/19at 22:30; Start 09/17/19 at 22:00; Stop 09/18/19 at 21:59; Status DC Potassium Chloride 80 meq/ Magnesium Sulfate 20 meq/ Multivitamins 10 ml/Chromium/ Copper/Manganese/ Seleni/Zn 1 ml/ Insulin Human Regular 15 unit/ Total Parenteral Nutrition/Amino Acids/Dextrose/ Fat Emulsion Intravenous 1,800 ml @ 75 mls/hr TPN CONT IV Last administered on 09/18/19at 21:54; Start 09/18/19 at 22:00; Stop 09/19/19 at 21:59; Status DC Potassium Chloride/Water 100 ml @ 100 mls/hr 1X ONCE IV Last administered on 09/19/19at 10:15; Start 09/19/19 at 10:00; Stop 09/19/19 at 10:59; Status DC Potassium Chloride 90 meq/ Magnesium Sulfate 20 meq/ Multivitamins 10 ml/Chromium/ Copper/Manganese/ Seleni/Zn 1 ml/ Insulin Human Regular 20 unit/ Total Parenteral Nutrition/Amino Acids/Dextrose/ Fat Emulsion Intravenous 1,800 ml @ 75 mls/hr TPN CONT IV Last administered on 09/19/19at 22:28; Start 09/19/19 at 22:00; Stop 09/20/19 at 21:59; Status DC Potassium Chloride 90 meq/ Magnesium Sulfate 20 meq/ Multivitamins 10 ml/Chromium/ Copper/Manganese/ Seleni/Zn 1 ml/ Insulin Human Regular 20 unit/ Total Parenteral Nutrition/Amino Acids/Dextrose/ Fat Emulsion Intravenous 1,800 ml @ 75 mls/hr TPN CONT IV Last administered on 09/20/19at 22:08; Start 09/20/19 at 22:00; Stop 09/21/19 at 21:59; Status DC Lorazepam (Ativan Inj) 0.25 mg PRN Q4HRS PRN IVP ANXIETY / AGITATION Last administered on 09/29/19at 05:53; Start 09/21/19 at 07:30 Potassium Chloride 90 meq/ Magnesium Sulfate 20 meq/ Multivitamins 10 ml/Chromium/ Copper/Manganese/ Seleni/Zn 1 ml/ Insulin Human Regular 20 unit/ Total Parenteral Nutrition/Amino Acids/Dextrose/ Fat Emulsion Intravenous 1,800 ml @ 75 mls/hr TPN CONT IV Last administered on 09/21/19at 23:13; Start 09/21/19 at 22:00; Stop 09/22/19 at 21:59; Status DC Furosemide (Lasix) 40 mg DAILY IVP Last administered on 09/23/19at 11:14; Start 09/21/19 at 13:30; Stop 09/25/19 at 09:12; Status DC Fluoxetine HCl (PROzac) 20 mg QHS PEG Last administered on 09/29/19at 23:22; Start 09/22/19 at 21:00 Fentanyl (Duragesic 50mcg/ Hr Patch) 1 patch Q72H TD Last administered on at 21:22; Start 09/22/19 at 21:00 Potassium Chloride 40 meq/ Potassium Acetate 60 meq/Magnesium Sulfate 10 meq/ Multivitamins 10 ml/Chromium/ Copper/Manganese/ Seleni/Zn 1 ml/ Insulin Human Regular 20 unit/ Total Parenteral Nutrition/Amino Acids/Dextrose/ Fat Emulsion Intravenous 1,800 ml @ 75 mls/hr TPN CONT IV Last administered on 09/23/19at 00:03; Start 09/22/19 at 22:00; Stop 09/23/19 at 21:59; Status DC Potassium Acetate 80 meq/Magnesium Sulfate 5 meq/ Multivitamins 10 ml/Chromium/ Copper/Manganese/ Seleni/Zn 1 ml/ Insulin Human Regular 20 unit/ Total Parenteral Nutrition/Amino Acids/Dextrose/ Fat Emulsion Intravenous 1,920 ml @ 80 mls/hr TPN CONT IV Last administered on 09/23/19at 21:59; Start 09/23/19 at 22:00; Stop 09/24/19 at 21:59; Status DC Potassium Acetate 60 meq/Magnesium Sulfate 5 meq/ Multivitamins 10 ml/Chromium/ Copper/Manganese/ Seleni/Zn 1 ml/ Insulin Human Regular 30 unit/ Total Parenteral Nutrition/Amino Acids/Dextrose/ Fat Emulsion Intravenous 1,920 ml @ 80 mls/hr TPN CONT IV Last administered on 09/24/19at 21:54; Start 09/24/19 at 22:00; Stop 09/25/19 at 21:59; Status DC Norepinephrine Bitartrate 8 mg/ Dextrose 258 ml @ 13.332 mls/ hr CONT PRN IV PER PROTOCOL Last administered on 09/25/19at 21:46; Start 09/25/19 at 06:30 Albumin Human 500 ml @ 125 mls/hr 1X ONCE IV Last administered on 09/25/19at 08:10; Start 09/25/19 at 08:15; Stop 09/25/19 at 12:14; Status DC Potassium Acetate 40 meq/Magnesium Sulfate 5 meq/ Multivitamins 10 ml/Chromium/ Copper/Manganese/ Seleni/Zn 1 ml/ Insulin Human Regular 30 unit/ Total Parenteral Nutrition/Amino Acids/Dextrose/ Fat Emulsion Intravenous 1,920 ml @ 80 mls/hr TPN CONT IV Last administered on 09/25/19at 22:23; Start 09/25/19 at 22:00; Stop 09/26/19 at 21:59; Status DC Meropenem 1 gm/ Sodium Chloride 100 ml @ 200 mls/hr Q8HRS IV ; Start 09/25/19 at 14:00; Status Cancel Meropenem 1 gm/ Sodium Chloride 100 ml @ 200 mls/hr Q8HRS IV Last administered on 09/25/19at 11:04; Start 09/25/19 at 10:00; Stop 09/25/19 at 13:00; Status DC Meropenem 1 gm/ Sodium Chloride 100 ml @ 200 mls/hr Q12HR IV Last administered on 09/29/19at 23:22; Start 09/25/19 at 21:00 Sodium Chloride 1,000 ml @ 1,000 mls/hr 1X ONCE IV Last administered on 09/25/19at 11:06; Start 09/25/19 at 10:45; Stop 09/25/19 at 11:44; Status DC Micafungin Sodium 100 mg/Dextrose 100 ml @ 100 mls/hr Q24H IV Last administered on 09/29/19at 10:04; Start 09/25/19 at 11:00 Daptomycin 410 mg/ Sodium Chloride 50 ml @ 100 mls/hr Q24H IV Last administered on 09/27/19at 13:33; Start 09/25/19 at 14:00; Stop 09/28/19 at 08:30; Status DC Midazolam HCl (Versed) 2 mg STK-MED ONCE .ROUTE ; Start 09/25/19 at 14:47; Stop 09/25/19 at 14:48; Status DC Fentanyl Citrate (Fentanyl 2ml Vial) 100 mcg STK-MED ONCE .ROUTE ; Start 09/25/19 at 14:47; Stop 09/25/19 at 14:48; Status DC Flumazenil (Romazicon) 0.5 mg STK-MED ONCE IV ; Start 09/25/19 at 14:48; Stop 09/25/19 at 14:48; Status DC Naloxone HCl (Narcan) 0.4 mg STK-MED ONCE .ROUTE ; Start 09/25/19 at 14:48; Stop 09/25/19 at 14:48; Status DC Lidocaine HCl (Lidocaine 1% 20ml Vial) 20 ml STK-MED ONCE .ROUTE ; Start 09/25/19 at 14:48; Stop 09/25/19 at 14:48; Status DC Midazolam HCl (Versed) 2 mg 1X ONCE IV Last administered on 09/25/19at 15:28; Start 09/25/19 at 15:00; Stop 09/25/19 at 15:01; Status DC Fentanyl Citrate (Fentanyl 2ml Vial) 100 mcg 1X ONCE IV Last administered on 09/25/19 15:28; Start 09/25/19 at 15:00; Stop 09/25/19 at 15:01; Status DC Lidocaine HCl (Lidocaine 1% 20ml Vial) 20 ml 1X ONCE INJ Last administered on 09/25/19at 15:30; Start 09/25/19 at 15:00; Stop 09/25/19 at 15:01; Status DC Sodium Chloride 1,000 ml @ 100 mls/hr Q10H IV Last administered on 09/30/19at 02:19; Start 09/25/19 at 20:00 Sodium Bicarbonate (Sodium Bicarb Adult 8.4% Syr) 50 meq 1X ONCE IV Last administered on 09/25/19at 21:47; Start 09/25/19 at 22:00; Stop 09/25/19 at 22:01; Status DC Potassium Acetate 40 meq/Magnesium Sulfate 5 meq/ Multivitamins 10 ml/Chromium/ Copper/Manganese/ Seleni/Zn 1 ml/ Insulin Human Regular 30 unit/ Total Parenteral Nutrition/Amino Acids/Dextrose/ Fat Emulsion Intravenous 1,920 ml @ 80 mls/hr TPN CONT IV Last administered on 09/26/19at 22:28; Start 09/26/19 at 22:00; Stop 09/27/19 at 21:59; Status DC Sodium Chloride 500 ml @ 500 mls/hr 1X ONCE IV Last administered on 09/27/19at 06:39; Start 09/27/19 at 06:45; Stop 09/27/19 at 07:44; Status DC Potassium Acetate 40 meq/Magnesium Sulfate 5 meq/ Multivitamins 10 ml/Chromium/ Copper/Manganese/ Seleni/Zn 1 ml/ Insulin Human Regular 30 unit/ Total Parenteral Nutrition/Amino Acids/Dextrose/ Fat Emulsion Intravenous 1,920 ml @ 80 mls/hr TPN CONT IV Last administered on 09/27/19at 22:03; Start 09/27/19 at 22:00; Stop 09/28/19 at 21:59; Status DC Metoprolol Tartrate (Lopressor Vial) 5 mg PRN Q6HRS PRN IVP HYPERTENSION Last administered on 09/29/19at 14:33; Start 09/28/19 at 09:00 Potassium Acetate 40 meq/Magnesium Sulfate 5 meq/ Multivitamins 10 ml/Chromium/ Copper/Manganese/ Seleni/Zn 1 ml/ Insulin Human Regular 30 unit/ Total Parenteral Nutrition/Amino Acids/Dextrose/ Fat Emulsion Intravenous 1,920 ml @ 80 mls/hr TPN CONT IV Last administered on 09/28/19at 21:26; Start 09/28/19 at 22:00; Stop 09/29/19 at 21:59; Status DC Potassium Acetate 40 meq/Magnesium Sulfate 5 meq/ Multivitamins 10 ml/Chromium/ Copper/Manganese/ Seleni/Zn 1 ml/ Insulin Human Regular 30 unit/ Total Parenteral Nutrition/Amino Acids/Dextrose/ Fat Emulsion Intravenous 1,920 ml @ 80 mls/hr TPN CONT IV Last administered on 09/29/19at 23:23; Start 09/29/19 at 22:00; Stop 09/30/19 at 21:59 Active Scripts Active Reported Bisoprolol Fumarate 5 Mg Tablet 10 Mg PO DAILY Vitals/I & O Vital Sign - Last 24 Hours 09/29/19 09/29/19 09/29/19 09/29/19 09:00 10:00 10:03 10:03 Pulse 134 122 144 Resp 42 40 44 B/P (MAP) 159/77 (104) 124/68 (86) 198/82 Pulse Ox 96 98 95 O2 Delivery Tracheal Collar Tracheal Collar Tracheal Collar O2 Flow Rate 10.0 10.0 10.0 09/29/19 09/29/19 09/29/19 09/29/19 10:33 11:00 11:45 12:00 Pulse 124 Resp 40 38 B/P (MAP) 131/61 (84) Pulse Ox 96 95 O2 Delivery Tracheal Collar Tracheal Collar Trach Collar O2 Flow Rate 10.0 10.0 10.0 09/29/19 09/29/19 09/29/19 09/29/19 12:00 13:00 14:00 14:33 Temp 98.4 98.4 Pulse 128 129 136 Resp 40 36 30 46 B/P (MAP) 149/79 (102) 131/68 (89) 116/54 (74) Pulse Ox 99 97 97 95 O2 Delivery Tracheal Collar Tracheal Collar Tracheal Collar Tracheal Collar O2 Flow Rate 10.0 10.0 10.0 09/29/19 09/29/19 09/29/19 09/29/19 14:33 15:00 15:03 15:46 Pulse 136 119 Resp 44 42 B/P (MAP) 161/73 129/67 (87) Pulse Ox 95 97 O2 Delivery Tracheal Collar Tracheal Collar Trach Collar O2 Flow Rate 10.0 10.0 10.0 09/29/19 09/29/19 09/29/19 09/29/19 16:00 16:00 17:00 18:00 Temp 99.2 99.2 Pulse 127 124 122 Resp 45 44 42 B/P (MAP) 127/68 (87) 137/72 (93) 132/69 (90) Pulse Ox 98 95 95 O2 Delivery Tracheal Collar Tracheal Collar Tracheal Collar O2 Flow Rate 10.0 10.0 10.0 09/29/19 09/29/19 09/29/19 09/29/19 20:00 20:00 20:00 21:00 Pulse 122 122 Resp 38 42 B/P (MAP) 138/71 (93) 140/75 (96) Pulse Ox 95 95 O2 Delivery Trach Collar Tracheal Collar Tracheal Collar O2 Flow Rate 10.0 10.0 10.0 09/29/19 09/29/19 09/29/19 09/29/19 22:00 22:50 23:00 23:20 Pulse 128 128 Resp 42 48 40 36 B/P (MAP) 130/54 (79) 144/68 (93) Pulse Ox 95 95 95 95 O2 Delivery Tracheal Collar Tracheal Collar Tracheal Collar O2 Flow Rate 10.0 10.0 10.0 10.0 09/30/19 09/30/19 09/30/19 09/30/19 00:00 00:01 00:01 01:00 Temp 99.5 99.5 Pulse 104 134 Resp 44 42 B/P (MAP) 136/64 (88) 157/64 (95) Pulse Ox 95 95 O2 Delivery Trach Collar Tracheal Collar Tracheal Collar O2 Flow Rate 10.0 10.0 10.0 09/30/19 09/30/19 09/30/19 09/30/19 02:00 03:00 04:00 04:00 Pulse 131 128 Resp 44 34 B/P (MAP) 130/70 (90) 139/70 (93) Pulse Ox 99 100 O2 Delivery Tracheal Collar Tracheal Collar Trach Collar O2 Flow Rate 10.0 10.0 10.0 09/30/19 09/30/19 09/30/19 09/30/19 04:00 05:00 06:00 07:00 Temp 98.9 98.9 Pulse 128 128 130 128 Resp 34 49 31 B/P (MAP) 154/76 (102) 150/76 (100) 146/74 (98) 130/60 (83) Pulse Ox 100 99 99 100 O2 Delivery Tracheal Collar Tracheal Collar Tracheal Collar Tracheal Collar O2 Flow Rate 10.0 10.0 10.0 10.0 09/30/19 09/30/19 07:42 08:26 Temp 98.7 98.7 Pulse 124 Resp 42 B/P (MAP) 147/75 O2 Delivery Trach Collar O2 Flow Rate 10.0 Intake and Output 09/29/19 09/29/19 09/30/19 15:00 23:00 07:00 Intake Total 200 ml 1945 ml 2373 ml Output Total 685 ml 1355 ml 825 ml Balance -485 ml 590 ml 1548 ml Hemodynamically unstable?: No Is patient in severe pain?: No Is NPO status required?: No DAVIN LANDEROS MD Sep 30, 2019 08:35
[2019-09-30] MEDS: PANTOPRAZOLE IV PUSH 40 MG VIAL. IVP SCH (08:41)
[2019-09-30] MEDS: MEROPENEM 1 GM in IV NORMAL SALINE 100ML 100 ML IV SCH ×2 (08:41→20:35)
[2019-09-30] MEDS: MICAFUNGIN 100 MG in IV DEXTROSE 5% 100ML 100 ML IV SCH (10:44)
[2019-09-30] MEDS: fentaNYL PF VIAL 100 MCG/2 ML VIAL IVP PRN ×3 (10:44→20:36)
--- NOTE | 2019-09-30 11:21 | NUR ---
SS following up with discharge planning. SS reviewed pt chart and discussed with pt RN. Per RN, staff has pulled 1055 cc's out of drains within 24 hour period. Pt continues on trach collar and refuses to wear trach cap. Pt on TPN, IV Meropenem, and IV Micafungin. Pt has drains x3 and is Max Assist with PT/OT and staff. Possible surgery with Dr. Servin in a few weeks. SS will continue to follow for discharge planning.
[2019-09-30] MEDS: METOPROLOL TARTRATE 5 MG/5 ML VIAL. IVP PRN ×2 (12:11→16:34)
--- NOTE | 2019-09-30 12:17 | PDOC ---
SURGICAL PROGRESS NOTE Subjective drowsy d/w nurse received unit of blood Vital Signs Vital Signs Date Time Temp Pulse Resp B/P (MAP) Pulse Ox O2 Delivery O2 Flow Rate FiO2 09/30/19 12:11 126 150/69 09/30/19 11:41 99.0 38 99.0 09/30/19 11:32 Trach Collar 10.0 09/30/19 11:14 97 I&O Intake and Output 09/30/19 07:00 Intake Total 4518 ml Output Total 2865 ml Balance 1653 ml IV Total 4518 ml Output Urine Total 1810 ml Drainage Total 1055 ml # Bowel Movements 1 General: Cooperative, No acute distress Abdomen: Soft, Other (drains in place) Labs Laboratory Tests Test 09/28/19 18:37 09/28/19 23:30 09/29/19 06:02 09/29/19 06:15 Glucose (Fingerstick) 152 mg/dL (70-99) 145 mg/dL (70-99) 167 mg/dL (70-99) White Blood Count 9.8 x10^3/uL (4.0-11.0) Red Blood Count 2.90 x10^6/uL (3.50-5.40) Hemoglobin 8.6 g/dL (12.0-15.5) Hematocrit 26.2 % (36.0-47.0) Mean Corpuscular Volume 91 fL (79-100) Mean Corpuscular Hemoglobin 30 pg (25-35) Mean Corpuscular Hemoglobin Concent 33 g/dL (31-37) Red Cell Distribution Width 17.4 % (11.5-14.5) Platelet Count 335 x10^3/uL (140-400) Neutrophils (%) (Auto) 70 % (31-73) Lymphocytes (%) (Auto) 24 % (24-48) Monocytes (%) (Auto) 5 % (0-9) Eosinophils (%) (Auto) 1 % (0-3) Basophils (%) (Auto) 0 % (0-3) Neutrophils # (Auto) 6.9 x10^3/uL (1.8-7.7) Lymphocytes # (Auto) 2.4 x10^3/uL (1.0-4.8) Monocytes # (Auto) 0.5 x10^3/uL (0.0-1.1) Eosinophils # (Auto) 0.1 x10^3/uL (0.0-0.7) Basophils # (Auto) 0.0 x10^3/uL (0.0-0.2) Sodium Level 147 mmol/L (136-145) Potassium Level 4.1 mmol/L (3.5-5.1) Chloride Level 115 mmol/L (98-107) Carbon Dioxide Level 22 mmol/L (21-32) Anion Gap 10 (6-14) Blood Urea Nitrogen 32 mg/dL (7-20) Creatinine 0.9 mg/dL (0.6-1.0) Estimated GFR (Cockcroft-Gault) 66.5 BUN/Creatinine Ratio 36 (6-20) Glucose Level 181 mg/dL (70-99) Calcium Level 9.9 mg/dL (8.5-10.1) Phosphorus Level 4.0 mg/dL (2.6-4.7) Magnesium Level 1.8 mg/dL (1.8-2.4) Total Bilirubin 0.4 mg/dL (0.2-1.0) Aspartate Amino Transf (AST/SGOT) 21 U/L (15-37) Alanine Aminotransferase (ALT/SGPT) 17 U/L (14-59) Alkaline Phosphatase 91 U/L (46-116) Total Protein 5.2 g/dL (6.4-8.2) Albumin 1.3 g/dL (3.4-5.0) Albumin/Globulin Ratio 0.3 (1.0-1.7) Triglycerides Level 203 mg/dL (0-150) Test 09/29/19 11:32 09/30/19 06:05 09/30/19 06:18 09/30/19 12:05 Glucose (Fingerstick) 163 mg/dL (70-99) 165 mg/dL (70-99) 158 mg/dL (70-99) White Blood Count 8.7 x10^3/uL (4.0-11.0) Red Blood Count 2.56 x10^6/uL (3.50-5.40) Hemoglobin 7.6 g/dL (12.0-15.5) Hematocrit 22.9 % (36.0-47.0) Mean Corpuscular Volume 90 fL (79-100) Mean Corpuscular Hemoglobin 30 pg (25-35) Mean Corpuscular Hemoglobin Concent 33 g/dL (31-37) Red Cell Distribution Width 16.6 % (11.5-14.5) Platelet Count 349 x10^3/uL (140-400) Neutrophils (%) (Auto) 74 % (31-73) Lymphocytes (%) (Auto) 18 % (24-48) Monocytes (%) (Auto) 6 % (0-9) Eosinophils (%) (Auto) 1 % (0-3) Basophils (%) (Auto) 0 % (0-3) Neutrophils # (Auto) 6.5 x10^3/uL (1.8-7.7) Lymphocytes # (Auto) 1.6 x10^3/uL (1.0-4.8) Monocytes # (Auto) 0.6 x10^3/uL (0.0-1.1) Eosinophils # (Auto) 0.1 x10^3/uL (0.0-0.7) Basophils # (Auto) 0.0 x10^3/uL (0.0-0.2) Sodium Level 146 mmol/L (136-145) Potassium Level 3.9 mmol/L (3.5-5.1) Chloride Level 114 mmol/L (98-107) Carbon Dioxide Level 25 mmol/L (21-32) Anion Gap 7 (6-14) Blood Urea Nitrogen 29 mg/dL (7-20) Creatinine 0.8 mg/dL (0.6-1.0) Estimated GFR (Cockcroft-Gault) 76.2 BUN/Creatinine Ratio 36 (6-20) Glucose Level 176 mg/dL (70-99) Calcium Level 9.8 mg/dL (8.5-10.1) Total Bilirubin 0.4 mg/dL (0.2-1.0) Aspartate Amino Transf (AST/SGOT) 22 U/L (15-37) Alanine Aminotransferase (ALT/SGPT) 16 U/L (14-59) Alkaline Phosphatase 83 U/L (46-116) Total Protein 5.1 g/dL (6.4-8.2) Albumin 1.1 g/dL (3.4-5.0) Albumin/Globulin Ratio 0.3 (1.0-1.7) Laboratory Tests Test 09/30/19 06:05 09/30/19 06:18 09/30/19 12:05 White Blood Count 8.7 x10^3/uL (4.0-11.0) Red Blood Count 2.56 x10^6/uL (3.50-5.40) Hemoglobin 7.6 g/dL (12.0-15.5) Hematocrit 22.9 % (36.0-47.0) Mean Corpuscular Volume 90 fL (79-100) Mean Corpuscular Hemoglobin 30 pg (25-35) Mean Corpuscular Hemoglobin Concent 33 g/dL (31-37) Red Cell Distribution Width 16.6 % (11.5-14.5) Platelet Count 349 x10^3/uL (140-400) Neutrophils (%) (Auto) 74 % (31-73) Lymphocytes (%) (Auto) 18 % (24-48) Monocytes (%) (Auto) 6 % (0-9) Eosinophils (%) (Auto) 1 % (0-3) Basophils (%) (Auto) 0 % (0-3) Neutrophils # (Auto) 6.5 x10^3/uL (1.8-7.7) Lymphocytes # (Auto) 1.6 x10^3/uL (1.0-4.8) Monocytes # (Auto) 0.6 x10^3/uL (0.0-1.1) Eosinophils # (Auto) 0.1 x10^3/uL (0.0-0.7) Basophils # (Auto) 0.0 x10^3/uL (0.0-0.2) Sodium Level 146 mmol/L (136-145) Potassium Level 3.9 mmol/L (3.5-5.1) Chloride Level 114 mmol/L (98-107) Carbon Dioxide Level 25 mmol/L (21-32) Anion Gap 7 (6-14) Blood Urea Nitrogen 29 mg/dL (7-20) Creatinine 0.8 mg/dL (0.6-1.0) Estimated GFR (Cockcroft-Gault) 76.2 BUN/Creatinine Ratio 36 (6-20) Glucose Level 176 mg/dL (70-99) Calcium Level 9.8 mg/dL (8.5-10.1) Total Bilirubin 0.4 mg/dL (0.2-1.0) Aspartate Amino Transf (AST/SGOT) 22 U/L (15-37) Alanine Aminotransferase (ALT/SGPT) 16 U/L (14-59) Alkaline Phosphatase 83 U/L (46-116) Total Protein 5.1 g/dL (6.4-8.2) Albumin 1.1 g/dL (3.4-5.0) Albumin/Globulin Ratio 0.3 (1.0-1.7) Glucose (Fingerstick) 165 mg/dL (70-99) 158 mg/dL (70-99) Problem List Problems Medical Problems: (1) Acute pancreatitis Status: Acute (2) Cholelithiasis Status: Acute Assessment/Plan severe pancreatitis cont supportive care tentatively plan surgical intervention in a few weeks, if continued improvement. Justicifation of Admission Dx: Justifications for Admission: Justification of Admission Dx: Yes 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 MEAT [employer]ER Sep 30, 2019 12:17
[2019-09-30 12:58] LABS: HEMATOCRIT 25.7 % (36.0-47.0); HEMOGLOBIN 8.5 g/dL (12.0-15.5); RED BLOOD COUNT 2.99 x10^6/uL (3.50-5.40); RED CELL DISTRIBUTION WIDTH 19.7 % (11.5-14.5)
[2019-09-30] MEDS: TPN PER PHARMACY MC PRN (13:00)
--- NOTE | 2019-09-30 13:00 | NUR ---
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, 8 inches Weight: 79.0 kg Current diet: NPO LABS: Sodium: 146 Potassium: 3.9 Chloride: 114 Calcium: 9.8 Corrected Calcium: 12.12 Magnesium: 1.8 CO2: 25 SCr: 0.8 Glucose: 158-176 Albumin: 1.1 AST: 22 ALT: 16 TPN FORMULA: TPN TYPE: Central Continuous AMINO ACIDS: 75 gm DEXTROSE: 250 gm LIPIDS: 20 gm POTASSIUM ACETATE: 40 mEq MAGNESIUM: 5 mEq INSULIN: 30 units MULTIPLE VITAMIN: 10 ml TRACE ELEMENTS: 1 ml(s) TPN PLAN: Na trending down. BG at goal. Continue same TPN. R: Continue same TPN formula. Will monitor electrolytes, glucose, and tolerance to TPN. MIKAYLA CHU RPH, 09/30/19 1300
--- NOTE | 2019-09-30 13:42 | PDOC ---
Objective: Objective: D/w nurse - lethargic, lots of drain output. Vital Signs: Vital Signs Date Time Temp Pulse Resp B/P (MAP) Pulse Ox O2 Delivery O2 Flow Rate FiO2 09/30/19 13:00 98.8 112 27 127/65 (85) 98 Tracheal Collar 10.0 98.8 Labs: Laboratory Tests Test 09/30/19 06:05 09/30/19 06:18 09/30/19 12:05 09/30/19 12:45 White Blood Count 8.7 x10^3/uL 7.0 x10^3/uL Red Blood Count 2.56 x10^6/uL 2.99 x10^6/uL Hemoglobin 7.6 g/dL 8.5 g/dL Hematocrit 22.9 % 25.7 % Mean Corpuscular Volume 90 fL 86 fL Mean Corpuscular Hemoglobin 30 pg 29 pg Mean Corpuscular Hemoglobin Concent 33 g/dL 33 g/dL Red Cell Distribution Width 16.6 % 19.7 % Platelet Count 349 x10^3/uL 347 x10^3/uL Neutrophils (%) (Auto) 74 % Lymphocytes (%) (Auto) 18 % Monocytes (%) (Auto) 6 % Eosinophils (%) (Auto) 1 % Basophils (%) (Auto) 0 % Neutrophils # (Auto) 6.5 x10^3/uL Lymphocytes # (Auto) 1.6 x10^3/uL Monocytes # (Auto) 0.6 x10^3/uL Eosinophils # (Auto) 0.1 x10^3/uL Basophils # (Auto) 0.0 x10^3/uL Sodium Level 146 mmol/L Potassium Level 3.9 mmol/L Chloride Level 114 mmol/L Carbon Dioxide Level 25 mmol/L Anion Gap 7 Blood Urea Nitrogen 29 mg/dL Creatinine 0.8 mg/dL Estimated GFR (Cockcroft-Gault) 76.2 BUN/Creatinine Ratio 36 Glucose Level 176 mg/dL Calcium Level 9.8 mg/dL Total Bilirubin 0.4 mg/dL Aspartate Amino Transf (AST/SGOT) 22 U/L Alanine Aminotransferase (ALT/SGPT) 16 U/L Alkaline Phosphatase 83 U/L Total Protein 5.1 g/dL Albumin 1.1 g/dL Albumin/Globulin Ratio 0.3 Glucose (Fingerstick) 165 mg/dL 158 mg/dL PE: GEN: ill LUNGS: trach collar HEART: tachycardic ABD: drains w/ dark red/brown blood NEURO/PSYCH: briefly opens eyes A/P: Pancreatitis, MOSF, MDRO Pseudomonas -- Continue support. Justicifation of Admission Dx: Justifications for Admission: Justification of Admission Dx: Yes CYNDEE FALCON Sep 30, 2019 13:42
--- NOTE | 2019-09-30 16:19 | PDOC ---
PULMONARY PROGRESS NOTES Subjective Patient intubated on 07/10 , s/p trach 07/24, transferred back to ICU 09/22 for syncope with collapse developed anemia, blood drainage from RLQ abdomen drain site, and surrounding firmness / developed septic shock 09/24 from abdomen source, required levo 09/24 s/p 3 new drains 09/24 with brown color drainage was place on AVAPS 09/24 post continues to have Dark blood / bloody drainage from KAYLIN drains, 1000cc in past 24 hrs . on Trach sheild 40%, off pressor Vitals Vital Signs Date Time Temp Pulse Resp B/P (MAP) Pulse Ox O2 Delivery O2 Flow Rate FiO2 09/30/19 15:52 Trach Collar 10.0 09/30/19 15:00 126 36 157/77 (103) 98 09/30/19 13:00 98.8 98.8 ROS: No Nausea, No Chest Pain, No Abdominal Pain, No Increase Cough General: No acute distress, Lethargic Lungs: Other (diminshed in bases, Rhonci in LLL) Cardiovascular: S1, S2 Abdomen: Soft, Non-tender, Other (bleeding from Sx. site RLQ and firmness) Extremities: Other (+1 BLE edema) Skin: Warm, Dry Labs Laboratory Tests Test 09/28/19 18:37 09/28/19 23:30 09/29/19 06:02 09/29/19 06:15 Glucose (Fingerstick) 152 mg/dL (70-99) 145 mg/dL (70-99) 167 mg/dL (70-99) White Blood Count 9.8 x10^3/uL (4.0-11.0) Red Blood Count 2.90 x10^6/uL (3.50-5.40) Hemoglobin 8.6 g/dL (12.0-15.5) Hematocrit 26.2 % (36.0-47.0) Mean Corpuscular Volume 91 fL (79-100) Mean Corpuscular Hemoglobin 30 pg (25-35) Mean Corpuscular Hemoglobin Concent 33 g/dL (31-37) Red Cell Distribution Width 17.4 % (11.5-14.5) Platelet Count 335 x10^3/uL (140-400) Neutrophils (%) (Auto) 70 % (31-73) Lymphocytes (%) (Auto) 24 % (24-48) Monocytes (%) (Auto) 5 % (0-9) Eosinophils (%) (Auto) 1 % (0-3) Basophils (%) (Auto) 0 % (0-3) Neutrophils # (Auto) 6.9 x10^3/uL (1.8-7.7) Lymphocytes # (Auto) 2.4 x10^3/uL (1.0-4.8) Monocytes # (Auto) 0.5 x10^3/uL (0.0-1.1) Eosinophils # (Auto) 0.1 x10^3/uL (0.0-0.7) Basophils # (Auto) 0.0 x10^3/uL (0.0-0.2) Sodium Level 147 mmol/L (136-145) Potassium Level 4.1 mmol/L (3.5-5.1) Chloride Level 115 mmol/L (98-107) Carbon Dioxide Level 22 mmol/L (21-32) Anion Gap 10 (6-14) Blood Urea Nitrogen 32 mg/dL (7-20) Creatinine 0.9 mg/dL (0.6-1.0) Estimated GFR (Cockcroft-Gault) 66.5 BUN/Creatinine Ratio 36 (6-20) Glucose Level 181 mg/dL (70-99) Calcium Level 9.9 mg/dL (8.5-10.1) Phosphorus Level 4.0 mg/dL (2.6-4.7) Magnesium Level 1.8 mg/dL (1.8-2.4) Total Bilirubin 0.4 mg/dL (0.2-1.0) Aspartate Amino Transf (AST/SGOT) 21 U/L (15-37) Alanine Aminotransferase (ALT/SGPT) 17 U/L (14-59) Alkaline Phosphatase 91 U/L (46-116) Total Protein 5.2 g/dL (6.4-8.2) Albumin 1.3 g/dL (3.4-5.0) Albumin/Globulin Ratio 0.3 (1.0-1.7) Triglycerides Level 203 mg/dL (0-150) Test 09/29/19 11:32 09/30/19 06:05 09/30/19 06:18 09/30/19 12:05 Glucose (Fingerstick) 163 mg/dL (70-99) 165 mg/dL (70-99) 158 mg/dL (70-99) White Blood Count 8.7 x10^3/uL (4.0-11.0) Red Blood Count 2.56 x10^6/uL (3.50-5.40) Hemoglobin 7.6 g/dL (12.0-15.5) Hematocrit 22.9 % (36.0-47.0) Mean Corpuscular Volume 90 fL (79-100) Mean Corpuscular Hemoglobin 30 pg (25-35) Mean Corpuscular Hemoglobin Concent 33 g/dL (31-37) Red Cell Distribution Width 16.6 % (11.5-14.5) Platelet Count 349 x10^3/uL (140-400) Neutrophils (%) (Auto) 74 % (31-73) Lymphocytes (%) (Auto) 18 % (24-48) Monocytes (%) (Auto) 6 % (0-9) Eosinophils (%) (Auto) 1 % (0-3) Basophils (%) (Auto) 0 % (0-3) Neutrophils # (Auto) 6.5 x10^3/uL (1.8-7.7) Lymphocytes # (Auto) 1.6 x10^3/uL (1.0-4.8) Monocytes # (Auto) 0.6 x10^3/uL (0.0-1.1) Eosinophils # (Auto) 0.1 x10^3/uL (0.0-0.7) Basophils # (Auto) 0.0 x10^3/uL (0.0-0.2) Sodium Level 146 mmol/L (136-145) Potassium Level 3.9 mmol/L (3.5-5.1) Chloride Level 114 mmol/L (98-107) Carbon Dioxide Level 25 mmol/L (21-32) Anion Gap 7 (6-14) Blood Urea Nitrogen 29 mg/dL (7-20) Creatinine 0.8 mg/dL (0.6-1.0) Estimated GFR (Cockcroft-Gault) 76.2 BUN/Creatinine Ratio 36 (6-20) Glucose Level 176 mg/dL (70-99) Calcium Level 9.8 mg/dL (8.5-10.1) Total Bilirubin 0.4 mg/dL (0.2-1.0) Aspartate Amino Transf (AST/SGOT) 22 U/L (15-37) Alanine Aminotransferase (ALT/SGPT) 16 U/L (14-59) Alkaline Phosphatase 83 U/L (46-116) Total Protein 5.1 g/dL (6.4-8.2) Albumin 1.1 g/dL (3.4-5.0) Albumin/Globulin Ratio 0.3 (1.0-1.7) Test 09/30/19 12:45 White Blood Count 7.0 x10^3/uL (4.0-11.0) Red Blood Count 2.99 x10^6/uL (3.50-5.40) Hemoglobin 8.5 g/dL (12.0-15.5) Hematocrit 25.7 % (36.0-47.0) Mean Corpuscular Volume 86 fL (79-100) Mean Corpuscular Hemoglobin 29 pg (25-35) Mean Corpuscular Hemoglobin Concent 33 g/dL (31-37) Red Cell Distribution Width 19.7 % (11.5-14.5) Platelet Count 347 x10^3/uL (140-400) Laboratory Tests Test 09/30/19 06:05 09/30/19 06:18 09/30/19 12:05 09/30/19 12:45 White Blood Count 8.7 x10^3/uL (4.0-11.0) 7.0 x10^3/uL (4.0-11.0) Red Blood Count 2.56 x10^6/uL (3.50-5.40) 2.99 x10^6/uL (3.50-5.40) Hemoglobin 7.6 g/dL (12.0-15.5) 8.5 g/dL (12.0-15.5) Hematocrit 22.9 % (36.0-47.0) 25.7 % (36.0-47.0) Mean Corpuscular Volume 90 fL (79-100) 86 fL (79-100) Mean Corpuscular Hemoglobin 30 pg (25-35) 29 pg (25-35) Mean Corpuscular Hemoglobin Concent 33 g/dL (31-37) 33 g/dL (31-37) Red Cell Distribution Width 16.6 % (11.5-14.5) 19.7 % (11.5-14.5) Platelet Count 349 x10^3/uL (140-400) 347 x10^3/uL (140-400) Neutrophils (%) (Auto) 74 % (31-73) Lymphocytes (%) (Auto) 18 % (24-48) Monocytes (%) (Auto) 6 % (0-9) Eosinophils (%) (Auto) 1 % (0-3) Basophils (%) (Auto) 0 % (0-3) Neutrophils # (Auto) 6.5 x10^3/uL (1.8-7.7) Lymphocytes # (Auto) 1.6 x10^3/uL (1.0-4.8) Monocytes # (Auto) 0.6 x10^3/uL (0.0-1.1) Eosinophils # (Auto) 0.1 x10^3/uL (0.0-0.7) Basophils # (Auto) 0.0 x10^3/uL (0.0-0.2) Sodium Level 146 mmol/L (136-145) Potassium Level 3.9 mmol/L (3.5-5.1) Chloride Level 114 mmol/L (98-107) Carbon Dioxide Level 25 mmol/L (21-32) Anion Gap 7 (6-14) Blood Urea Nitrogen 29 mg/dL (7-20) Creatinine 0.8 mg/dL (0.6-1.0) Estimated GFR (Cockcroft-Gault) 76.2 BUN/Creatinine Ratio 36 (6-20) Glucose Level 176 mg/dL (70-99) Calcium Level 9.8 mg/dL (8.5-10.1) Total Bilirubin 0.4 mg/dL (0.2-1.0) Aspartate Amino Transf (AST/SGOT) 22 U/L (15-37) Alanine Aminotransferase (ALT/SGPT) 16 U/L (14-59) Alkaline Phosphatase 83 U/L (46-116) Total Protein 5.1 g/dL (6.4-8.2) Albumin 1.1 g/dL (3.4-5.0) Albumin/Globulin Ratio 0.3 (1.0-1.7) Glucose (Fingerstick) 165 mg/dL (70-99) 158 mg/dL (70-99) Medications Active Scripts Medications Dose Route/Sig Max Daily Dose Days Date Category Bisoprolol Fumarate 5 Mg Tablet 10 Mg PO DAILY 07/04/19 Reported Comments CXR 09/24/2019 IMPRESSION: Lines and tubes as described above. Left greater than right lower lobe opacities most likely pulmonary edema and left greater than right mild pleural effusions are stable. Superimposed left lower lobe pneumonia is not excluded. ct abdomen /pelvis 09/23 1. Removal of the percutaneous pigtail drainage catheters since the prior exam. Sequela of pancreatitis with extensive pseudocysts again demonstrated, the right-sided collections are slightly larger since the prior exam, the left-sided collections are stable. See above. 2. Moderate to large left pleural effusion with atelectasis and collapse of most of the left lower lobe, stable. Small right pleural effusion is stable. 3. Gallstone. Impression . IMPRESSION: 1. Acute hypoxemic respiratory failure secondary to ARDS status post trach, developed anemia 09/24, blood drainage from RLQ abdomen drain site, and surrounding firmness / developed septic shock 09/24 from abdomen source, required levo /7 s/p 3 new drains / with brown color drainage,was placed on AVAPS 09/24 post procedure after receiving narcotics. back on TS now at 40 % Bloody drainage again from KAYLIN drains / 1000 cc in last 24 hr 2. Gallstone pancreatitis, now with ongoing bleeding from prior drain. Anemic. s/p Tx multiple units over several days 3. septic shock, recurrent 09/24, source abdomen. , off levo now, 4. Acute kidney injury-, Off HD--renal function decling. suspect JUANA on CKD due to hypotension , improved now 5. Acute gallstone pancreatitis. 6. Hypoalbuminemia. 7. Moderate persistent effusions, s/p left thora 08/29, reaccumulation of left effusion. O2 requirement not changed. 8. New Fever- ,hypotension. suspect recurrent sepsis/ likely pancreatic source. Per ID, per surgery-- 9. Chronic anemia-- ongoing / s/p PRBC 10. Covid 19 testing negative 11. Moderate to large ascites-S/P paracentisis 12.S/P paracentisis with 4 liters removed on 08/03/19 13. S/P IR drain placement on 08/26/2019, removal 14. Depression/Anxiety 1 Plan . 1. On trach shield-- PMV/capping as tolerated/ prn suction. 2. Follow all cultures/ PSA from pelvic drains. Abx per ID 3. Follow surgery recs-- Acute pancreatitis with persistent necrosis ---- 08/14 status post KAYLIN drain placement + C paropsilosis; 08/23 + yeast & high amylase; s/p additional drains on 08/25, removal of drains and now increase pseudocyst and increase fluid collection. likely infected fluid/ sepsis. continues to have bloody drainage thru drains . 1000 cc in last 24 hrs .Initiated BS abx.follow surgery rec, planning surgical intervention next few weeks 4. Follow ID recs for ABX---- 5. Follow nephrology recs ----- 6. Continue TPN 7. monitor HGB, 4 units since 09/23--monitor HGB transfuse if less than 8.5 8. hold off on thoracentesis . effusion small to moderate , monitor for now 10. s/p thoracentesis, 08/29, 3 litres removed 11. Pt remains critically ill from severe necrotic pancreatis. Even with surgery prognosis grim. Surgery to inform family. DVT/GI PPX: protonix--- holding lovenox 2/2 anemia PT/OT D/W VINAYAK MOSLEY MD Sep 30, 2019 16:19
[2019-09-30] MEDS: ONDANSETRON PF 4 MG/2 ML VIAL. IV PRN ×2 (16:34→21:34)
--- NOTE | 2019-09-30 18:36 | NUR ---
Patient had increased drainage out of KAYLIN drains throughout shift, multiple MDs aware. Patient's VSS. Patient remains lethargic, arousable to name or shaking.
[2019-09-30] MEDS ORDERED: [UNRECOGNIZED DRUG - OTHER] IV SCH ×8 (22:00)
[2019-09-30] MEDS ORDERED: AMINO ACID IV SCH ×8 (22:00)
[2019-09-30] MEDS ORDERED: DEXTROSE 70% IV SCH ×8 (22:00)
[2019-09-30] MEDS ORDERED: TOTAL PARENTERAL NUTRITION IV SCH ×8 (22:00)
[2019-10-01] VITALS (29 sets, daily range): BP systolic 90–180; BP diastolic 52–93
[2019-10-01] MEDS: METOPROLOL TARTRATE 5 MG/5 ML VIAL. IVP PRN ×2 (00:27→04:03)
[2019-10-01] MEDS: fentaNYL PF VIAL 100 MCG/2 ML VIAL IVP PRN ×2 (00:27→05:15)
[2019-10-01] MEDS: IV NORMAL SALINE 1000ML BAG 1,000 ML IV SCH ×3 (00:31→16:00)
--- NOTE | 2019-10-01 02:30 | NUR ---
Nursing Note: Patient tachycardic, tachypneic and hypertensive, despite given pain meds as ordered. Trach care given, bath done, and patient still not sleeping. Given dose of ativan to see if that will slow RR down and get patient to rest some. Will monitor.
[2019-10-01 04:23] LABS: BASO % 0 % (0-3); EOS # 0.2 x10^3/uL (0.0-0.7); EOS % 2 % (0-3); HEMATOCRIT 27.7 % (36.0-47.0); HEMOGLOBIN 9.2 g/dL (12.0-15.5); LYMPH # 1.6 x10^3/uL (1.0-4.8); LYMPH % 17 % (24-48); MEAN CORPUSCULAR HEMOGLOBIN 28 pg (25-35); MEAN CORPUSCULAR HGB CONC 33 g/dL (31-37); MEAN CORPUSCULAR VOLUME 85 fL (79-100); MONO # 0.5 x10^3/uL (0.0-1.1); MONO % 5 % (0-9); NEUT # 7.2 x10^3/uL (1.8-7.7); NEUT % 76 % (31-73); PLATELET COUNT 433 x10^3/uL (140-400); RED BLOOD COUNT 3.27 x10^6/uL (3.50-5.40); RED CELL DISTRIBUTION WIDTH 20.1 % (11.5-14.5); WHITE BLOOD COUNT 9.4 x10^3/uL (4.0-11.0)
[2019-10-01 05:00] LABS: CALCIUM 10.1 mg/dL (8.5-10.1); CREATININE 0.7 mg/dL (0.6-1.0); GFR 88.9; POTASSIUM 3.8 mmol/L (3.5-5.1)
[2019-10-01 05:45] LABS: BASE EXCESS ABG -3 mmol/L (-3-3); HCO3 ABG 24 mmol/L (21-28); PCO2 ABG 50 mmHg (35-46); PO2 ABG 64 mmHg (75-108); SAT O2 ABG 89 % (92-99)
[2019-10-01] MEDS: INSULIN LISPRO 300 UNITS/3 ML VIAL. SQ SCH ×4 (05:50→18:23)
[2019-10-01] MEDS: PROPOFOL 100 ML IV PRN (06:10)
[2019-10-01] MEDS ORDERED: FUROSEMIDE 20 MG/2 ML VIAL. IVP ONE (06:15)
[2019-10-01] MEDS ORDERED: methylPREDNISolone SOD SUCC PF 125 MG/2 ML VIAL. IV ONE (06:15)
--- NOTE | 2019-10-01 06:17 | PDOC ---
Infectious Disease Note Subjective Subjective Patient lethargic, weak back on vent Continues to have blood stained drainage from drains no fevers last 24 hours ROS ROS unable to obtain Vital Sign Vital Signs Vital Signs Date Time Temp Pulse Resp B/P (MAP) Pulse Ox O2 Delivery O2 Flow Rate FiO2 10/01/19 05:50 88 Tracheal Collar 15.0 10/01/19 05:00 130 40 165/76 (105) 10/01/19 04:00 98.3 98.3 Physical Exam PHYSICAL EXAM GENERAL: Lethargic, opens eyes transiently HEENT: NGT in place. Oral mucosa dry NECK: Tracheostomy LUNGS: Diminished aeration bases, no accessory muscle use HEART: S1, S2, tachy, regular ABDOMEN: Mild distention, bowel sounds present, soft, grimaces to palpation Right lateral side drainage bag, 3 drains with bloodstained drainage : Lind ( 09/24) EXTREMITIES: Trace edema .no cyanosis SKIN: no signs of gen rash [employer]: Lethargic very weak LUE-PICC (09/15) without signs of complications - art line without complications Labs Lab Laboratory Tests Test 09/30/19 06:18 09/30/19 12:05 09/30/19 12:45 09/30/19 17:11 Glucose (Fingerstick) 165 mg/dL (70-99) 158 mg/dL (70-99) 145 mg/dL (70-99) White Blood Count 7.0 x10^3/uL (4.0-11.0) Red Blood Count 2.99 x10^6/uL (3.50-5.40) Hemoglobin 8.5 g/dL (12.0-15.5) Hematocrit 25.7 % (36.0-47.0) Mean Corpuscular Volume 86 fL (79-100) Mean Corpuscular Hemoglobin 29 pg (25-35) Mean Corpuscular Hemoglobin Concent 33 g/dL (31-37) Red Cell Distribution Width 19.7 % (11.5-14.5) Platelet Count 347 x10^3/uL (140-400) Test 09/30/19 23:56 10/01/19 04:00 10/01/19 05:20 Glucose (Fingerstick) 140 mg/dL (70-99) White Blood Count 9.4 x10^3/uL (4.0-11.0) Red Blood Count 3.27 x10^6/uL (3.50-5.40) Hemoglobin 9.2 g/dL (12.0-15.5) Hematocrit 27.7 % (36.0-47.0) Mean Corpuscular Volume 85 fL (79-100) Mean Corpuscular Hemoglobin 28 pg (25-35) Mean Corpuscular Hemoglobin Concent 33 g/dL (31-37) Red Cell Distribution Width 20.1 % (11.5-14.5) Platelet Count 433 x10^3/uL (140-400) Neutrophils (%) (Auto) 76 % (31-73) Lymphocytes (%) (Auto) 17 % (24-48) Monocytes (%) (Auto) 5 % (0-9) Eosinophils (%) (Auto) 2 % (0-3) Basophils (%) (Auto) 0 % (0-3) Neutrophils # (Auto) 7.2 x10^3/uL (1.8-7.7) Lymphocytes # (Auto) 1.6 x10^3/uL (1.0-4.8) Monocytes # (Auto) 0.5 x10^3/uL (0.0-1.1) Eosinophils # (Auto) 0.2 x10^3/uL (0.0-0.7) Basophils # (Auto) 0.0 x10^3/uL (0.0-0.2) Sodium Level 146 mmol/L (136-145) Potassium Level 3.8 mmol/L (3.5-5.1) Chloride Level 112 mmol/L (98-107) Carbon Dioxide Level 24 mmol/L (21-32) Anion Gap 10 (6-14) Blood Urea Nitrogen 25 mg/dL (7-20) Creatinine 0.7 mg/dL (0.6-1.0) Estimated GFR (Cockcroft-Gault) 88.9 Glucose Level 151 mg/dL (70-99) Calcium Level 10.1 mg/dL (8.5-10.1) O2 Saturation 89 % (92-99) Arterial Blood pH 7.29 (7.35-7.45) Arterial Blood pCO2 at Patient Temp 50 mmHg (35-46) Arterial Blood pO2 at Patient Temp 64 mmHg (75-108) Arterial Blood HCO3 24 mmol/L (21-28) Arterial Blood Base Excess -3 mmol/L (-3-3) Micro 6/7 GRAM STAIN Final Final GRAM NEGATIVE RODS:MODERATE SQUAMOUS EPI CELL:NOT APPLICABLE PMN (WBCs):RARE YEAST:MODERATE Unless otherwise specified, Testing Performed by: [address] [id number] For Inquires, the Physician may contact the Microbiology department at [phone] ANAEROBIC-AEROBIC CULTURE Preliminary Preliminary MANY GRAM NEGATIVE RODS on 09/27/19 at 1158 FINAL ID= [[email or web address]] PSEUDOMONAS AERUGINOSA ANTIMICROBIAL SUSCEPTIBILITY Preliminary Comment NEG ALEXANDRA 56 PSEUDOMONAS AERUGINOSA ANTIBIOTIC RESULT INTERPRETATION AMIKACIN <=16 S AZTREONAM >16 R CEFTAZIDIME >16 R CIPROFLOXACIN <=0.25 S CEFEPIME 16 I CEFTAZIDIME/AVIBACTAM <=4 S GENTAMICIN <=2 S CONTINUED ON NEXT PAGE RUN DATE: 09/29/19 [facility] *LIVE* PAGE 2 RUN TIME: 1016 Specimen Inquiry SPEC: [id number] PATIENT: POLOSCOTT [id number] (Continued) Procedure Result ANTIMICROBIAL SUSCEPTIBILITY Preliminary (continued) LEVOFLOXACIN <=0.5 S MEROPENEM <=1 S PIPERACILLIN/TAZOBACTAM 64 S TOBRAMYCIN <=2 S Unless otherwise specified, Testing Performed by: [address] [address] For Inquires, the Physician may contact the Microbiology department at [phone] CT Scan 09/23 IMPRESSION: 1. Removal of the percutaneous pigtail drainage catheters since the prior exam. Sequela of pancreatitis with extensive pseudocysts again demonstrated, the right-sided collections are slightly larger since the prior exam, the left-sided collections are stable. See above. 2. Moderate to large left pleural effusion with atelectasis and collapse of most of the left lower lobe, stable. Small right pleural effusion is stable. 3. Gallstone. Objective Assessment Patient with prolonged hospitalization Multiple medical problems Multiple surgical procedures CXR with Left lung white-out 09/30 Acute hypoxic resp failure Fever improving Acute pancreatitis with persistent necrosis CT a/p 07/27 Increased ascites. 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 Sequela of pancreatitis with extensive pseudocysts again demonstrated, the right-sided collections are slightly larger since the prior exam, the left-sided collections are stable. 09/24 fluid cult PSAE (MDRO),yeast moderate s/p drain times three Cholelithiasis with thickening of the gallbladder wall. Leucocytosis - better JUANA,Hyperkalemia, Metabolic acidosis off dialysis Acute hypoxic resp failure ,bilateral pleural effusion and atelectasis hypocalcemia Prediabetes HTN s/p trach S/p thoracenteis 08/29 Plan Plan of Care Await Pulm F/u - may need bronch - has increased secretions per nursing. ? possible plug - currently AF/WBC nml and BP elevated Continue meropenem, has MDRP PSAE September 24 cont micafungin September 24 Follow-up cultures fluid for yeast Monitor a.m. labs General surgery following Monitor drain output Maintain aspiration precaution Supportive care Prognosis poor Critically ill D/w nursing WILLY BARAKAT MD Oct 01, 2019 06:16
--- NOTE | 2019-10-01 06:41 | NUR ---
Around 0500 pt started to desat. RT to bedside. Increased trach shield to 80%, deep suctioned. Pt still with increasing difficulties breathing. Stat cxr ordered. ABG. Dr. Watson notified, orders to put on ventilator. AC 20, tv 500 peep 5, titrate 02 to keep >94%. Tried to call Norma(daughter) twice, cell phone stated unavailable. Left voicemail with other daughter (Marce) to call RYAN. Also given one time doses of Lasix and Solumedrol. Started fentanyl and propofol for sedation. Will monitor.
--- NOTE | 2019-10-01 06:42 | RAD ---
INDICATION: Reason: Resp Failure, Increasing O2 demands COMPARISON: September 26, 2019 FINDINGS: Single view of chest obtained. Portion of the lung apex is obscured from the field of view. There is complete white out of the left lung which is increased from prior. Low lung volume on the right with interstitial prominence. Tracheostomy tube is seen. Enteric tube is seen coursing below the diaphragm. Drain in the right upper quadrant of the abdomen. Left-sided PICC line with tip at SVC. IMPRESSION: * Lines and tubes as above. * Complete opacification of the left chest which is increased from prior and could be from air space consolidation and pleural effusion. * Low lung volume on the right with elevation of the right hemidiaphragm apparent. This apparent elevation of the right hemidiaphragm could be secondary to consolidation or effusion at the right chest base. Electronically signed by: Dionte Case MD (10/01/2019 6:39 AM) [id number]
--- NOTE | 2019-10-01 08:03 | PDOC ---
PROGRESS NOTES Chief Complaint Chief Complaint A/P: Acute hypoxic Respiratory failure requiring mechanical ventilation (now extubated for several days but still with tracheostomy) Tracheostomy bilateral pleural effusions/pulm edema Sepsis Severe Acute gallstone pancreatitis (not a surgical candidate at this time) with necrosis Acute kidney failure now requiring dialysis Salpingitis Gallstones (Calculus of gallbladder with acute cholecystitis without obstruction) HTN Leukocytosis Hypoxia Uterine fibroid Intractable pain Intractable nausea Covid 19 negative. Acute on chronic anemia EEG: No seizure activityFever - better currently - intermittent could be from underlying pancreatitis blood cults 08/21 - neg so far ? Ileus with vomiting Abd distention - U/S and CT reviewed s/p 0.4 L of opaque, debris-containing ascites was removed 08/23 Acute pancreatitis with persistent necrosis - 08/14 status post KAYLIN drain placement + C paropsilosis. s/p additional drains Anemia - S/p PRBCs Cholelithiasis with thickening of the gallbladder wall. Leucocytosis improving JUANA, hyperkalemia, Metabolic acidosis off dialysis Acute hypoxic resp failure ,bilateral pleural effusion and atelectasis hypocalcemia Prediabetes HTN s/p trach ESRD on HD Hyperglycemia FEN - PPX - SCDs, off lovenox currently FULL CODE Dispo - ICU, critically ill CC time 49 minutes History of Present Illness History of Present Illness 09/25: IR placed drain on 09/24. 4u PRBC after Hb drop. Hb 8.8 today. Off Levophed this morning. T-max 100.3. Much more lethargic today. CXR with left sided dif fuse infiltrates. 09/26: Tachycardic overnight into the 140s. NGT clamped. On BIPAP currently. Drains with serosanguinous discharge. WBC 8, Tmax 99.6F. 09/27: Seen on trach shield in ICU. Hypertensive and tachycardic. Labs stable. blood stained drainage from drains. Afebrile. 09/28: Seen on trach shield in ICU. She is a bit confused, drowsy, but when sitting up is conversational and confusion somewhat clears. She is asking for more pain medication. Stable drains, still very tachy.Na 147 09/29: Patient vomited overnight. Aspirated. Tried to pull her trach out, she was told she would without her trach, she said "I know, I just want to go home". Hb 7.6. Afebrile, still very tachycardic. 1055ml out of right sided KAYLIN drain Overnight hypoxic, on BIPAP. CXR with left sided white out lung. Significant mucous plug suctioned by RT with improvement in her ABG after 2 hours this morn ing. Not really active, tired, lethargic. 890ml out of drains past 24 hours and already with 330ml while I am present. On vent. D/w daughter bedside. 09/23/2019 Patient seen and examined on telemetry floor today This morning I had a couple of discussions with case management The issue is the patient will not wear her trach cap Without that she cannot advance her diet and is currently supposed to be on honey thick liquids I was going to talk to the patient about wearing her trach But when I arrived to the room she was lying on the floor with several nurses and therapist around Apparently she did walk to the end of the meyer then back and then collapsed onto the floor She had a bowel movement when this all happened Appears to be critically ill again Very shaky tremulous anxious has a stare in her eyes We got her back in bed I am extremely concerned about her long-term prognosis again 09/22/2019 Patient seen and examined in the ICU She remains critically ill is is extremely weak Chart reviewed Discussed with RN We decided to try some Prozac as she does seem depressed On IV TPN Still has NG tube 09/21/2019 Patient seen and examined in the ICU She remains critically ill We have been trying to hold off on her Ativan for the past 24 hours She is a little more awake but shaky and agitated and anxious seems depressed Discussed with RN Chart reviewed 09/20/2019 Patient seen and examined in the ICU She is a little more alert today but still quite ill Appears clammy and pale and depressed/anxious Discussed with RN Chart reviewed 09/19/2019 Patient seen and examined in the ICU She appears extremely ill She is tachypneic at 35 respirations per minute and tachycardic at 132 bpm She is extremely encephalopathic and shaky She appears clammy Chart reviewed Discussed with RN Prognosis extremely guarded at best 09/18/2019 Patient still in ICU Resting with no apparent distress Chart reviewed 09/17/2019 Patient seen and examined in the ICU She is wiping her face with a cough Discussed with RN Chart reviewed We hope to get her out of the ICU later today if possible 09/16/2019 Patient seen and examined in the ICU once again She is back on NG suction On IV Zosyn Has IV TPN Sedated with Precedex but anxious still Appears somewhat clammy and pale Chart reviewed Discussed with RN She remains critically ill 09/15/2019 Patient seen and examined in the ICU She has an NG that is clamped we are hoping to start some clear liquids but she looks quite ill She is on IV TPN Meropenem changed to IV Zosyn (agree) She has Lind to bedside drainage She is semi-sedated with Precedex Chart reviewed Discussed with RN She remains critically ill Seen bedside. Hb 8. She was just a bit hypoxic, had a mucous plug suctioned. Able to vocalize well with speaking valve, tells me we are being very hard on her and she would like to be drugged back to sleep. She wants to wake up and feel better. On trach shield, T max 100.4. afebrile this a.m. 09/13/2019 Patient seen and examined in the ICU She is up in the chair very frail trying to talk a little shaky Discussed with RN Chart reviewed 09/12/2019 Patient seen and examined in the ICU Patient up in the chair Having a severe coughing episode with a lot of phlegm coming out of her tracheostomy Discussed with RN Discussed with physical therapy Chart reviewed 09/10,. feels well, has been out of room in wheelchair no complaint, still weak, some with not wanting to wear her valve on trach cont other, may be able to work with speech tomorrow, erumwalleanna OK to try, 09/09, anxiety is up today, she dislikes the valve still, shower and outside today . 09/08 she doesnt want to wear her passy-fantasma valve, discussed str and plan with her. speech following, needs swallow study, but needs to wear her valve longer, cont current able to walk some, walker 09/07 stronger, better, we discussed better oral care she would like to try swallow study, wants to try to eat, speech is following 09/07/2019 She remains in the ICU sitting up and working with OT, getting better if limit pain meds, may do better off the vent, Nurses trying to suction her, that is also improved, Chart reviewed 09/06/2019 Patient seen and examined in the ICU She had an episode yesterday of tachycardia and severe agitation we gave her some Ativan After that she seemed to have stroke symptoms but now that the Ativan has wore off her stroke symptoms have resolved She is on IV meropenem and daptomycin and micafungin Chart reviewed Discussed with RN Patient is still critically ill BRIEF OPERATIVE NOTE Pre-Op Diagnosis Pancreatitis with pseudocysts, suspected infection Post-Op Diagnosis same Procedure Performed CT abdominal Drains x 3 Surgeon Tesfaye Anesthesia Type: Conscious Sedation Findings 3 abdominal drains, 14F, with turbid pancreatic fluid and necrotic debris in each. Complications No immediate 08/26: Patient today somewhat restless and having bilious secretions from ET tube, imaging studies ordered, discussed with supervisor home energy consultant. Pretty poor prognosis, hopefully is not a fistula, poor surgical candidate. 08/27: Imaging with no acute events, she seems more stable today compared to yesterday. Encouraged as much activity as possible patient at high risk for severe depression. Vitals Vitals Vital Signs Date Time Temp Pulse Resp B/P (MAP) Pulse Ox O2 Delivery O2 Flow Rate FiO2 10/01/19 07:13 96 Ventilator 10/01/19 06:31 20 10/01/19 06:00 121 96/56 (69) 10/01/19 05:50 15.0 10/01/19 04:00 98.3 98.3 Physical Exam Physical Exam GENERAL: Lethargic, opens eyes transiently HEENT: NGT in place. Oral mucosa dry NECK: Tracheostomy LUNGS: Diminished aeration bases, no accessory muscle use HEART: S1, S2, tachy, regular ABDOMEN: Mild distention, bowel sounds present, soft, grimaces to palpation Right lateral side drainage bag, 3 drains with bloodstained drainage : Lind ( 09/24) EXTREMITIES: Trace edema .no cyanosis SKIN: no signs of gen rash SALES EXEC: Lethargic very weak LUE-PICC (09/15) without signs of complications - art line without complications General: Cooperative, No acute distress Heart: Regular rate, Normal S1, Normal S2, No murmurs, Gallops Lungs: Other (diminshed in bases, Rhonci in LLL) Abdomen: Soft, Other (drains in place) Extremities: No clubbing, No cyanosis, No edema, Normal pulses, No tenderness/swelling Skin: Other (warm, dry) Labs LABS Laboratory Tests Test 09/30/19 12:05 09/30/19 12:45 09/30/19 17:11 09/30/19 23:56 Glucose (Fingerstick) 158 mg/dL (70-99) 145 mg/dL (70-99) 140 mg/dL (70-99) White Blood Count 7.0 x10^3/uL (4.0-11.0) Red Blood Count 2.99 x10^6/uL (3.50-5.40) Hemoglobin 8.5 g/dL (12.0-15.5) Hematocrit 25.7 % (36.0-47.0) Mean Corpuscular Volume 86 fL (79-100) Mean Corpuscular Hemoglobin 29 pg (25-35) Mean Corpuscular Hemoglobin Concent 33 g/dL (31-37) Red Cell Distribution Width 19.7 % (11.5-14.5) Platelet Count 347 x10^3/uL (140-400) Test 10/01/19 04:00 10/01/19 05:20 White Blood Count 9.4 x10^3/uL (4.0-11.0) Red Blood Count 3.27 x10^6/uL (3.50-5.40) Hemoglobin 9.2 g/dL (12.0-15.5) Hematocrit 27.7 % (36.0-47.0) Mean Corpuscular Volume 85 fL (79-100) Mean Corpuscular Hemoglobin 28 pg (25-35) Mean Corpuscular Hemoglobin Concent 33 g/dL (31-37) Red Cell Distribution Width 20.1 % (11.5-14.5) Platelet Count 433 x10^3/uL (140-400) Neutrophils (%) (Auto) 76 % (31-73) Lymphocytes (%) (Auto) 17 % (24-48) Monocytes (%) (Auto) 5 % (0-9) Eosinophils (%) (Auto) 2 % (0-3) Basophils (%) (Auto) 0 % (0-3) Neutrophils # (Auto) 7.2 x10^3/uL (1.8-7.7) Lymphocytes # (Auto) 1.6 x10^3/uL (1.0-4.8) Monocytes # (Auto) 0.5 x10^3/uL (0.0-1.1) Eosinophils # (Auto) 0.2 x10^3/uL (0.0-0.7) Basophils # (Auto) 0.0 x10^3/uL (0.0-0.2) Sodium Level 146 mmol/L (136-145) Potassium Level 3.8 mmol/L (3.5-5.1) Chloride Level 112 mmol/L (98-107) Carbon Dioxide Level 24 mmol/L (21-32) Anion Gap 10 (6-14) Blood Urea Nitrogen 25 mg/dL (7-20) Creatinine 0.7 mg/dL (0.6-1.0) Estimated GFR (Cockcroft-Gault) 88.9 Glucose Level 151 mg/dL (70-99) Calcium Level 10.1 mg/dL (8.5-10.1) O2 Saturation 89 % (92-99) Arterial Blood pH 7.29 (7.35-7.45) Arterial Blood pCO2 at Patient Temp 50 mmHg (35-46) Arterial Blood pO2 at Patient Temp 64 mmHg (75-108) Arterial Blood HCO3 24 mmol/L (21-28) Arterial Blood Base Excess -3 mmol/L (-3-3) Assessment and Plan Assessmemt and Plan Problems Medical Problems: (1) Acute pancreatitis Status: Acute (2) Cholelithiasis Status: Acute Comment Review of Relevant I have reviewed the following items kolby (where applicable) has been applied. Labs Laboratory Tests Test 09/29/19 11:32 09/30/19 06:05 09/30/19 06:18 09/30/19 12:05 Glucose (Fingerstick) 163 mg/dL (70-99) 165 mg/dL (70-99) 158 mg/dL (70-99) White Blood Count 8.7 x10^3/uL (4.0-11.0) Red Blood Count 2.56 x10^6/uL (3.50-5.40) Hemoglobin 7.6 g/dL (12.0-15.5) Hematocrit 22.9 % (36.0-47.0) Mean Corpuscular Volume 90 fL (79-100) Mean Corpuscular Hemoglobin 30 pg (25-35) Mean Corpuscular Hemoglobin Concent 33 g/dL (31-37) Red Cell Distribution Width 16.6 % (11.5-14.5) Platelet Count 349 x10^3/uL (140-400) Neutrophils (%) (Auto) 74 % (31-73) Lymphocytes (%) (Auto) 18 % (24-48) Monocytes (%) (Auto) 6 % (0-9) Eosinophils (%) (Auto) 1 % (0-3) Basophils (%) (Auto) 0 % (0-3) Neutrophils # (Auto) 6.5 x10^3/uL (1.8-7.7) Lymphocytes # (Auto) 1.6 x10^3/uL (1.0-4.8) Monocytes # (Auto) 0.6 x10^3/uL (0.0-1.1) Eosinophils # (Auto) 0.1 x10^3/uL (0.0-0.7) Basophils # (Auto) 0.0 x10^3/uL (0.0-0.2) Sodium Level 146 mmol/L (136-145) Potassium Level 3.9 mmol/L (3.5-5.1) Chloride Level 114 mmol/L (98-107) Carbon Dioxide Level 25 mmol/L (21-32) Anion Gap 7 (6-14) Blood Urea Nitrogen 29 mg/dL (7-20) Creatinine 0.8 mg/dL (0.6-1.0) Estimated GFR (Cockcroft-Gault) 76.2 BUN/Creatinine Ratio 36 (6-20) Glucose Level 176 mg/dL (70-99) Calcium Level 9.8 mg/dL (8.5-10.1) Total Bilirubin 0.4 mg/dL (0.2-1.0) Aspartate Amino Transf (AST/SGOT) 22 U/L (15-37) Alanine Aminotransferase (ALT/SGPT) 16 U/L (14-59) Alkaline Phosphatase 83 U/L (46-116) Total Protein 5.1 g/dL (6.4-8.2) Albumin 1.1 g/dL (3.4-5.0) Albumin/Globulin Ratio 0.3 (1.0-1.7) Test 09/30/19 12:45 09/30/19 17:11 09/30/19 23:56 10/01/19 04:00 White Blood Count 7.0 x10^3/uL (4.0-11.0) 9.4 x10^3/uL (4.0-11.0) Red Blood Count 2.99 x10^6/uL (3.50-5.40) 3.27 x10^6/uL (3.50-5.40) Hemoglobin 8.5 g/dL (12.0-15.5) 9.2 g/dL (12.0-15.5) Hematocrit 25.7 % (36.0-47.0) 27.7 % (36.0-47.0) Mean Corpuscular Volume 86 fL (79-100) 85 fL (79-100) Mean Corpuscular Hemoglobin 29 pg (25-35) 28 pg (25-35) Mean Corpuscular Hemoglobin Concent 33 g/dL (31-37) 33 g/dL (31-37) Red Cell Distribution Width 19.7 % (11.5-14.5) 20.1 % (11.5-14.5) Platelet Count 347 x10^3/uL (140-400) 433 x10^3/uL (140-400) Glucose (Fingerstick) 145 mg/dL (70-99) 140 mg/dL (70-99) Neutrophils (%) (Auto) 76 % (31-73) Lymphocytes (%) (Auto) 17 % (24-48) Monocytes (%) (Auto) 5 % (0-9) Eosinophils (%) (Auto) 2 % (0-3) Basophils (%) (Auto) 0 % (0-3) Neutrophils # (Auto) 7.2 x10^3/uL (1.8-7.7) Lymphocytes # (Auto) 1.6 x10^3/uL (1.0-4.8) Monocytes # (Auto) 0.5 x10^3/uL (0.0-1.1) Eosinophils # (Auto) 0.2 x10^3/uL (0.0-0.7) Basophils # (Auto) 0.0 x10^3/uL (0.0-0.2) Sodium Level 146 mmol/L (136-145) Potassium Level 3.8 mmol/L (3.5-5.1) Chloride Level 112 mmol/L (98-107) Carbon Dioxide Level 24 mmol/L (21-32) Anion Gap 10 (6-14) Blood Urea Nitrogen 25 mg/dL (7-20) Creatinine 0.7 mg/dL (0.6-1.0) Estimated GFR (Cockcroft-Gault) 88.9 Glucose Level 151 mg/dL (70-99) Calcium Level 10.1 mg/dL (8.5-10.1) Test 10/01/19 05:20 O2 Saturation 89 % (92-99) Arterial Blood pH 7.29 (7.35-7.45) Arterial Blood pCO2 at Patient Temp 50 mmHg (35-46) Arterial Blood pO2 at Patient Temp 64 mmHg (75-108) Arterial Blood HCO3 24 mmol/L (21-28) Arterial Blood Base Excess -3 mmol/L (-3-3) Laboratory Tests Test 09/30/19 12:05 09/30/19 12:45 09/30/19 17:11 09/30/19 23:56 Glucose (Fingerstick) 158 mg/dL (70-99) 145 mg/dL (70-99) 140 mg/dL (70-99) White Blood Count 7.0 x10^3/uL (4.0-11.0) Red Blood Count 2.99 x10^6/uL (3.50-5.40) Hemoglobin 8.5 g/dL (12.0-15.5) Hematocrit 25.7 % (36.0-47.0) Mean Corpuscular Volume 86 fL (79-100) Mean Corpuscular Hemoglobin 29 pg (25-35) Mean Corpuscular Hemoglobin Concent 33 g/dL (31-37) Red Cell Distribution Width 19.7 % (11.5-14.5) Platelet Count 347 x10^3/uL (140-400) Test 10/01/19 04:00 10/01/19 05:20 White Blood Count 9.4 x10^3/uL (4.0-11.0) Red Blood Count 3.27 x10^6/uL (3.50-5.40) Hemoglobin 9.2 g/dL (12.0-15.5) Hematocrit 27.7 % (36.0-47.0) Mean Corpuscular Volume 85 fL (79-100) Mean Corpuscular Hemoglobin 28 pg (25-35) Mean Corpuscular Hemoglobin Concent 33 g/dL (31-37) Red Cell Distribution Width 20.1 % (11.5-14.5) Platelet Count 433 x10^3/uL (140-400) Neutrophils (%) (Auto) 76 % (31-73) Lymphocytes (%) (Auto) 17 % (24-48) Monocytes (%) (Auto) 5 % (0-9) Eosinophils (%) (Auto) 2 % (0-3) Basophils (%) (Auto) 0 % (0-3) Neutrophils # (Auto) 7.2 x10^3/uL (1.8-7.7) Lymphocytes # (Auto) 1.6 x10^3/uL (1.0-4.8) Monocytes # (Auto) 0.5 x10^3/uL (0.0-1.1) Eosinophils # (Auto) 0.2 x10^3/uL (0.0-0.7) Basophils # (Auto) 0.0 x10^3/uL (0.0-0.2) Sodium Level 146 mmol/L (136-145) Potassium Level 3.8 mmol/L (3.5-5.1) Chloride Level 112 mmol/L (98-107) Carbon Dioxide Level 24 mmol/L (21-32) Anion Gap 10 (6-14) Blood Urea Nitrogen 25 mg/dL (7-20) Creatinine 0.7 mg/dL (0.6-1.0) Estimated GFR (Cockcroft-Gault) 88.9 Glucose Level 151 mg/dL (70-99) Calcium Level 10.1 mg/dL (8.5-10.1) O2 Saturation 89 % (92-99) Arterial Blood pH 7.29 (7.35-7.45) Arterial Blood pCO2 at Patient Temp 50 mmHg (35-46) Arterial Blood pO2 at Patient Temp 64 mmHg (75-108) Arterial Blood HCO3 24 mmol/L (21-28) Arterial Blood Base Excess -3 mmol/L (-3-3) Microbiology 09/25/19 Gram Stain - Final, Resulted 09/25/19 Aerobic and Anaerobic Culture - Preliminary, Resulted 09/25/19 Antimicrobic Susceptibility - Preliminary, Resulted 09/25/19 Blood Culture - Final, Complete NO GROWTH AFTER 5 DAYS 09/25/19 Urine Culture - Final, Complete 09/17/19 Gram Stain - Final, Complete 09/17/19 Aerobic Culture - Final, Complete Medications Current Medications Sodium Chloride 1,000 ml @ 1,000 mls/hr Q1H IV Last administered on 07/04/19at 03:00; Start 07/04/19 at 03:00; Stop 07/04/19 at 03:59; Status DC Ondansetron HCl (Zofran) 4 mg 1X ONCE IVP Last administered on 07/04/19at 03:27; Start 07/04/19 at 03:00; Stop 07/04/19 at 03:01; Status DC Morphine Sulfate (Morphine Sulfate) 4 mg 1X ONCE IV ; Start 07/04/19 at 03:00; Stop 07/04/19 at 03:01; Status Cancel Ketorolac Tromethamine (Toradol 30mg Vial) 30 mg 1X ONCE IV Last administered on 07/04/19at 02:54; Start 07/04/19 at 03:00; Stop 07/04/19 at 03:01; Status DC Fentanyl Citrate (Fentanyl 2ml Vial) 25 mcg 1X ONCE IVP Last administered on 07/04/19at 03:23; Start 07/04/19 at 03:30; Stop 07/04/19 at 03:31; Status DC Fentanyl Citrate (Fentanyl 2ml Vial) 100 mcg STK-MED ONCE .ROUTE ; Start 07/04/19 at 03:18; Stop 07/04/19 at 03:18; Status DC Iohexol (Omnipaque 350 Mg/ml) 90 ml 1X ONCE IV Last administered on 07/04/19at 03:25; Start 07/04/19 at 03:30; Stop 07/04/19 at 03:31; Status DC Info (CONTRAST GIVEN -- Rx MONITORING) 1 each PRN DAILY PRN MC SEE COMMENTS; Start 07/04/19 at 03:30; Stop 07/06/19 at 03:29; Status DC Hydromorphone HCl (Dilaudid) 0.5 mg 1X ONCE IV Last administered on 07/04/19at 03:55; Start 07/04/19 at 04:30; Stop 07/04/19 at 04:32; Status DC Ondansetron HCl (Zofran) 4 mg PRN Q8HRS PRN IV NAUSEA/VOMITING 1ST CHOICE; Start 07/04/19 at 05:00; Stop 07/04/19 at 09:27; Status DC Morphine Sulfate (Morphine Sulfate) 2 mg PRN Q2HR PRN IV SEVERE PAIN 7-10 Last administered on 07/05/19at 12:26; Start 07/04/19 at 05:00; Stop 07/05/19 at 14:15; Status DC Sodium Chloride 1,000 ml @ 125 mls/hr Q8H IV Last administered on 07/04/19at 20:56; Start 07/04/19 at 05:00; Stop 07/05/19 at 04:59; Status DC Hydromorphone HCl (Dilaudid) 0.5 mg PRN Q3HRS PRN IV SEVERE PAIN 7-10 Last administered on 07/05/19at 10:06; Start 07/04/19 at 05:00; Stop 07/05/19 at 12:01; Status DC Piperacillin Sod/ Tazobactam Sod 4.5 gm/Sodium Chloride 100 ml @ 200 mls/hr 1X ONCE IV Last administered on 07/04/19at 05:44; Start 07/04/19 at 06:00; Stop 07/04/19 at 06:29; Status DC Ondansetron HCl (Zofran) 4 mg PRN Q4HRS PRN IV NAUSEA/VOMITING 1ST CHOICE Last administered on 09/30/19at 21:34; Start 07/04/19 at 09:30 Insulin Human Lispro (HumaLOG) 0-9 UNITS Q6HRS SQ Last administered on 09/30/19at 12:11; Start 07/04/19 at 09:30 Dextrose (Dextrose 50%-Water Syringe) 12.5 gm PRN Q15MIN PRN IV SEE COMMENTS; Start 07/04/19 at 09:30 Pantoprazole Sodium (PROTONIX VIAL for IV PUSH) 40 mg DAILYAC IVP Last administered on 09/30/19at 08:41; Start 07/04/19 at 11:30 Prochlorperazine Edisylate (Compazine) 10 mg PRN Q6HRS PRN IV NAUSEA/VOMITING, 2nd CHOICE Last administered on 09/28/19at 14:33; Start 07/04/19 at 17:45 Atenolol (Tenormin) 100 mg DAILY PO ; Start 07/05/19 at 09:00; Stop 07/04/19 at 20:08; Status DC Metoprolol Tartrate (Lopressor Vial) 2.5 mg Q6HRS IVP Last administered on 07/05/19at 05:51; Start 07/04/19 at 20:15; Stop 07/05/19 at 10:02; Status DC Metoprolol Tartrate (Lopressor Vial) 5 mg Q6HRS IVP Last administered on 07/14/19at 00:12; Start 07/05/19 at 10:15; Stop 07/16/19 at 08:48; Status DC Hydromorphone HCl (Dilaudid) 1 mg PRN Q3HRS PRN IV SEVERE PAIN 7-10 Last administered on 07/11/19at 05:13; Start 07/05/19 at 12:00; Stop 07/19/19 at 00:25; Status DC Lidocaine HCl (Buffered Lidocaine 1%) 3 ml STK-MED ONCE .ROUTE ; Start 07/05/19 at 12:55; Stop 07/05/19 at 12:56; Status DC Albumin Human 500 ml @ 125 mls/hr 1X ONCE IV Last administered on 07/05/19at 14:33; Start 07/05/19 at 14:30; Stop 07/05/19 at 18:32; Status DC Norepinephrine Bitartrate 8 mg/ Dextrose 258 ml @ 17.299 mls/ hr CONT PRN IV PER PROTOCOL Last administered on 08/02/19at 12:48; Start 07/05/19 at 15:30; Stop 08/05/19 at 09:19; Status DC Sodium Chloride 1,000 ml @ 125 mls/hr Q8H IV Last administered on 07/05/19at 21:04; Start 07/05/19 at 16:00; Stop 07/06/19 at 02:42; Status DC Albumin Human 500 ml @ 125 mls/hr PRN BID PRN IV After every 2L NSS & BP < 90mm Last administered on 09/24/19at 11:40; Start 07/05/19 at 16:00 Iohexol (Omnipaque 300 Mg/ml) 60 ml 1X ONCE IV Last administered on 07/05/19at 17:20; Start 07/05/19 at 17:00; Stop 07/05/19 at 17:01; Status DC Info (CONTRAST GIVEN -- Rx MONITORING) 1 each PRN DAILY PRN MC SEE COMMENTS; Start 07/05/19 at 17:00; Stop 07/07/19 at 16:59; Status DC Meropenem 1 gm/ Sodium Chloride 100 ml @ 200 mls/hr Q8HRS IV Last administered on 07/06/19at 05:45; Start 07/05/19 at 20:00; Stop 07/06/19 at 08:48; Status DC Furosemide (Lasix) 40 mg 1X ONCE IVP Last administered on 07/05/19at 22:12; Start 07/05/19 at 22:30; Stop 07/05/19 at 22:31; Status DC Calcium Chloride 1000 mg/Sodium Chloride 110 ml @ 220 mls/hr 1X ONCE IV Last administered on 07/05/19at 22:11; Start 07/05/19 at 22:30; Stop 07/05/19 at 22:59; Status DC Albuterol Sulfate (Ventolin Neb Soln) 2.5 mg 1X ONCE NEB Last administered on 07/06/19at 00:56; Start 07/05/19 at 22:30; Stop 07/05/19 at 22:31; Status DC Insulin Human Regular (HumuLIN R VIAL) 5 unit 1X ONCE IV Last administered on 07/05/19at 22:14; Start 07/05/19 at 22:30; Stop 07/05/19 at 22:31; Status DC Magnesium Sulfate 50 ml @ 25 mls/hr 1X ONCE IV Last administered on 07/06/19at 02:57; Start 07/06/19 at 03:00; Stop 07/06/19 at 04:59; Status DC Calcium Gluconate 1000 mg/Sodium Chloride 110 ml @ 220 mls/hr 1X ONCE IV Last administered on 07/06/19at 02:46; Start 07/06/19 at 03:00; Stop 07/06/19 at 03:29; Status DC Sodium Chloride 1,000 ml @ 200 mls/hr Q5H IV Last administered on 07/06/19at 02:46; Start 07/06/19 at 03:00; Stop 07/06/19 at 10:21; Status DC Calcium Gluconate 1000 mg/Sodium Chloride 110 ml @ 220 mls/hr 1X ONCE IV Last administered on 07/06/19at 03:21; Start 07/06/19 at 03:30; Stop 07/06/19 at 03:59; Status DC Sodium Bicarbonate 50 meq/Sodium Chloride 1,050 ml @ 75 mls/hr Q14H IV Last administered on 07/10/19at 21:10; Start 07/06/19 at 07:30; Stop 07/11/19 at 10:28; Status DC Calcium Gluconate 2000 mg/Sodium Chloride 120 ml @ 220 mls/hr 1X ONCE IV Last administered on 07/06/19at 09:05; Start 07/06/19 at 07:30; Stop 07/06/19 at 08:02; Status DC Lidocaine HCl (Xylocaine-Mpf 1% 2ml Vial) 2 ml STK-MED ONCE .ROUTE ; Start 07/06/19 at 08:47; Stop 07/06/19 at 08:47; Status DC Meropenem 500 mg/ Sodium Chloride 50 ml @ 100 mls/hr Q12HR IV Last a dministered on 07/11/19at 21:01; Start 07/06/19 at 18:00; Stop 07/12/19 at 07:58; Status DC Lidocaine HCl (Buffered Lidocaine 1%) 3 ml STK-MED ONCE .ROUTE ; Start 07/06/19 at 09:46; Stop 07/06/19 at 09:46; Status DC Lidocaine HCl (Buffered Lidocaine 1%) 6 ml 1X ONCE INJ Last administered on 07/06/19at 10:26; Start 07/06/19 at 10:15; Stop 07/06/19 at 10:16; Status DC Info (Tpn Per Pharmacy) 1 each PRN DAILY PRN MC SEE COMMENTS Last administered on 09/30/19at 13:00; Start 07/06/19 at 12:00 Sodium Chloride 1,000 ml @ 1,000 mls/hr Q1H PRN IV hypotension; Start 07/06/19 at 12:07; Stop 07/06/19 at 18:06; Status DC Diphenhydramine HCl (Benadryl) 25 mg 1X PRN PRN IV ITCHING; Start 07/06/19 at 12:15; Stop 07/07/19 at 12:14; Status DC Diphenhydramine HCl (Benadryl) 25 mg 1X PRN PRN IV ITCHING; Start 07/06/19 at 12:15; Stop 07/07/19 at 12:14; Status DC Sodium Chloride 1,000 ml @ 400 mls/hr Q2H30M PRN IV PATENCY; Start 07/06/19 at 12:07; Stop 07/07/19 at 00:06; Status DC Info (PHARMACY MONITORING -- do not chart) 1 each PRN DAILY PRN MC SEE COMMENTS; Start 07/06/19 at 12:15; Stop 07/08/19 at 08:13; Status DC Sodium Chloride 90 meq/Calcium Gluconate 10 meq/ Multivitamins 10 ml/Chromium/ Copper/Manganese/ Seleni/Zn 1 ml/ Total Parenteral Nutrition/Amino Acids/D extrose/ Fat Emulsion Intravenous 55.005 ml @ 2.292 mls/hr TPN CONT IV ; Start 07/06/19 at 22:00; Stop 07/06/19 at 12:33; Status DC Info (Tpn Per Pharmacy) 1 each PRN DAILY PRN MC SEE COMMENTS; Start 07/06/19 at 12:30; Status UNV Sodium Chloride 90 meq/Calcium Gluconate 10 meq/ Multivitamins 10 ml/Chromium/ Copper/Manganese/ Seleni/Zn 0.5 ml/ Total Parenteral Nutrition/Amino A cids/Dextrose/ Fat Emulsion Intravenous 1,512 ml @ 63 mls/hr TPN CONT IV Last administered on 07/06/19at 22:06; Start 07/06/19 at 22:00; Stop 07/07/19 at 21:59; Status DC Calcium Carbonate/ Glycine (Tums) 500 mg PRN AFTMEALHC PRN PO INDIGESTION; Start 07/06/19 at 17:45; Stop 08/31/19 at 10:25; Status DC Calcium Gluconate (Calcium Gluconate) 2,000 mg 1X ONCE IVP Last administered on 07/07/19at 02:19; Start 07/07/19 at 02:15; Stop 07/07/19 at 02:16; Status DC Calcium Chloride 3000 mg/Sodium Chloride 1,030 ml @ 50 mls/hr [id number] IV Last administered on 07/09/19at 02:17; Start 07/07/19 at 08:00; Stop 07/09/19 at 15:23; Status DC Lorazepam (Ativan Inj) 1 mg PRN Q4HRS PRN IVP ANXIETY / AGITATION, 2nd choic Last administered on 08/05/19at 03:51; Start 07/07/19 at 09:00; Stop 08/05/19 at 09:19; Status DC Sodium Chloride 1,000 ml @ 1,000 mls/hr Q1H PRN IV hypotension; Start 07/07/19 at 08:56; Stop 07/07/19 at 14:55; Status DC Albumin Human 200 ml @ 200 mls/hr 1X PRN PRN IV Hypotension; Start 07/07/19 at 09:00; Stop 07/07/19 at 14:59; Status DC Diphenhydramine HCl (Benadryl) 25 mg 1X PRN PRN IV ITCHING; Start 07/07/19 at 09:00; Stop 07/08/19 at 08:59; Status DC Diphenhydramine HCl (Benadryl) 25 mg 1X PRN PRN IV ITCHING; Start 07/07/19 at 09:00; Stop 07/08/19 at 08:59; Status DC Sodium Chloride 1,000 ml @ 400 mls/hr Q2H30M PRN IV PATENCY; Start 07/07/19 at 08:56; Stop 07/07/19 at 20:55; Status DC Info (PHARMACY MONITORING -- do not chart) 1 each PRN DAILY PRN MC SEE COMMENTS; Start 07/07/19 at 09:00; Status UNV Info (PHARMACY MONITORING -- do not chart) 1 each PRN DAILY PRN MC SEE COMMENTS; Start 07/07/19 at 09:00; Stop 07/08/19 at 08:13; Status DC Digoxin (Lanoxin) 500 mcg 1X ONCE IV Last administered on 07/07/19at 10:04; Start 07/07/19 at 10:00; Stop 07/07/19 at 10:01; Status DC Digoxin (Lanoxin) 125 mcg 1X ONCE IV Last administered on 07/07/19at 17:10; Start 07/07/19 at 18:00; Stop 07/07/19 at 18:01; Status DC Magnesium Sulfate 100 ml @ 25 mls/hr 1X ONCE IV Last administered on 07/07/19at 12:48; Start 07/07/19 at 13:00; Stop 07/07/19 at 16:59; Status DC Sodium Chloride 90 meq/Magnesium Sulfate 10 meq/ Calcium Gluconate 20 meq/ Multivitamins 10 ml/Chromium/ Copper/Manganese/ Seleni/Zn 0.5 ml/ Total Parenteral Nutrition/Amino Acids/Dextrose/ Fat Emulsion Intravenous 1,512 ml @ 63 mls/hr TPN CONT IV Last administered on 07/07/19at 22:25; Start 07/07/19 at 22:00; Stop 07/08/19 at 21:59; Status DC Sodium Chloride 1,000 ml @ 1,000 mls/hr Q1H PRN IV hypotension; Start 07/08/19 at 08:05; Stop 07/08/19 at 14:04; Status DC Albumin Human 200 ml @ 200 mls/hr 1X ONCE IV Last administered on 07/08/19at 08:57; Start 07/08/19 at 08:15; Stop 07/08/19 at 09:14; Status DC Diphenhydramine HCl (Benadryl) 25 mg 1X PRN PRN IV ITCHING; Start 07/08/19 at 08:15; Stop 07/09/19 at 08:14; Status DC Diphenhydramine HCl (Benadryl) 25 mg 1X PRN PRN IV ITCHING; Start 07/08/19 at 08:15; Stop 07/09/19 at 08:14; Status DC Sodium Chloride 1,000 ml @ 400 mls/hr Q2H30M PRN IV PATENCY; Start 07/08/19 at 08:05; Stop 07/08/19 at 20:04; Status DC Info (PHARMACY MONITORING -- do not chart) 1 each PRN DAILY PRN MC SEE COMMENTS; Start 07/08/19 at 08:15; Stop 07/12/19 at 07:57; Status DC Sodium Chloride 90 meq/Potassium Chloride 15 meq/ Potassium Phosphate 10 mmol/ Magnesium Sulfate 10 meq/Calcium Gluconate 20 meq/ Multivitamins 10 ml/Chromium/ Copper/Manganese/ Seleni/Zn 0.5 ml/ Total Parenteral Nutrition/Amino Acids/Dextrose/ Fat Emulsion Intravenous 1,512 ml @ 63 mls/hr TPN CONT IV Last administered on 07/08/19at 21:01; Start 07/08/19 at 22:00; Stop 07/09/19 at 21:59; Status DC Potassium Chloride/Water 100 ml @ 100 mls/hr 1X ONCE IV Last administered on 07/08/19at 14:09; Start 07/08/19 at 14:00; Stop 07/08/19 at 14:59; Status DC Benzocaine (Hurricaine One) 1 spray 1X ONCE MM Last administered on 07/08/19at 16:38; Start 07/08/19 at 14:30; Stop 07/08/19 at 14:31; Status DC Lidocaine HCl (Glydo (Lidocaine) Jelly) 1 ramu 1X ONCE MM Last administered on 07/08/19at 16:38; Start 07/08/19 at 14:30; Stop 07/08/19 at 14:31; Status DC Linezolid/Dextrose 300 ml @ 300 mls/hr Q12HR IV Last administered on 07/14/19at 21:04; Start 07/08/19 at 20:00; Stop 07/15/19 at 07:50; Status DC Acetaminophen (Tylenol) 650 mg PRN Q6HRS PRN PO MILD PAIN / TEMP; Start 07/09/19 at 03:30; Stop 07/09/19 at 03:36; Status DC Acetaminophen (Tylenol) 650 mg PRN Q6HRS PRN PEG MILD PAIN / TEMP Last administered on 08/04/19at 19:56; Start 07/09/19 at 03:36; Stop 08/31/19 at 10:25; Status DC Sodium Chloride 1,000 ml @ 1,000 mls/hr Q1H PRN IV hypotension; Start 07/09/19 at 07:50; Stop 07/09/19 at 13:49; Status DC Albumin Human 200 ml @ 200 mls/hr 1X PRN PRN IV Hypotension; Start 07/09/19 at 08:00; Stop 07/09/19 at 13:59; Status DC Sodium Chloride (Normal Saline Flush) 10 ml 1X PRN PRN IV AP catheter pack; Start 07/09/19 at 08:00; Stop 07/10/19 at 07:59; Status DC Sodium Chloride (Normal Saline Flush) 10 ml 1X PRN PRN IV PSYCHOLOGY LECTURER catheter pack; Start 07/09/19 at 08:00; Stop 07/10/19 at 07:59; Status DC Sodium Chloride 1,000 ml @ 400 mls/hr Q2H30M PRN IV PATENCY; Start 07/09/19 at 07:50; Stop 07/09/19 at 19:49; Status DC Info (PHARMACY MONITORING -- do not chart) 1 each PRN DAILY PRN MC SEE COMMENTS; Start 07/09/19 at 08:00; Status UNV Info (PHARMACY MONITORING -- do not chart) 1 each PRN DAILY PRN MC SEE COMMENTS; Start 07/09/19 at 08:00; Stop 07/11/19 at 08:25; Status DC Sodium Chloride 90 meq/Potassium Chloride 15 meq/ Potassium Phosphate 10 mmol/ Magnesium Sulfate 10 meq/Calcium Gluconate 20 meq/ Multivitamins 10 ml/Chromium/ Copper/Manganese/ Seleni/Zn 0.5 ml/ Total Parenteral Nutrition/Amino Acids/Dextrose/ Fat Emulsion Intravenous 1,512 ml @ 63 mls/hr TPN CONT IV Last administered on 07/09/19at 20:57; Start 07/09/19 at 22:00; Stop 07/10/19 at 21:59; Status DC Sodium Chloride 90 meq/Potassium Chloride 15 meq/ Potassium Phosphate 15 mmol/ Magnesium Sulfate 10 meq/Calcium Gluconate 20 meq/ Multivitamins 10 ml/Chromium/ Copper/Manganese/ Seleni/Zn 0.5 ml/ Total Parenteral Nutrition/Amino Acids/Dextrose/ Fat Emulsion Intravenous 1,512 ml @ 63 mls/hr TPN CONT IV ; Start 07/10/19 at 22:00; Stop 07/10/19 at 14:16; Status DC Sodium Chloride 90 meq/Potassium Chloride 15 meq/ Potassium Phosphate 15 mmol/ Magnesium Sulfate 10 meq/Calcium Gluconate 20 meq/ Multivitamins 10 ml/Chromium/ Copper/Manganese/ Seleni/Zn 0.5 ml/ Total Parenteral Nutrition/Amino Acids/Dextrose/ Fat Emulsion Intravenous 1,200 ml @ 50 mls/hr TPN CONT IV ; Start 07/10/19 at 22:00; Stop 07/10/19 at 14:17; Status DC Sodium Chloride 90 meq/Potassium Chloride 15 meq/ Potassium Phosphate 10 mmol/ Magnesium Sulfate 10 meq/Calcium Gluconate 20 meq/ Multivitamins 10 ml/Chromium/ Copper/Manganese/ Seleni/Zn 0.5 ml/ Total Parenteral Nutrition/Amino Acids/Dextrose/ Fat Emulsion Intravenous 1,200 ml @ 50 mls/hr TPN CONT IV Last administered on 07/10/19at 23:29; Start 07/10/19 at 22:00; Stop 07/11/19 at 21:59; Status DC Sodium Chloride 1,000 ml @ 1,000 mls/hr Q1H PRN IV hypotension; Start 07/11/19 at 07:28; Stop 07/11/19 at 13:27; Status DC Albumin Human 200 ml @ 200 mls/hr 1X ONCE IV Last administered on 07/11/19at 08:51; Start 07/11/19 at 07:30; Stop 07/11/19 at 08:29; Status DC Diphenhydramine HCl (Benadryl) 25 mg 1X PRN PRN IV ITCHING; Start 07/11/19 at 07:30; Stop 07/12/19 at 07:29; Status DC Diphenhydramine HCl (Benadryl) 25 mg 1X PRN PRN IV ITCHING; Start 07/11/19 at 07:30; Stop 07/12/19 at 07:29; Status DC Sodium Chloride 1,000 ml @ 400 mls/hr Q2H30M PRN IV PATENCY; Start 07/11/19 at 07:28; Stop 07/11/19 at 19:27; Status DC Info (PHARMACY MONITORING -- do not chart) 1 each PRN DAILY PRN MC SEE COMMENTS; Start 07/11/19 at 07:30; Stop 07/22/19 at 13:01; Status DC Metronidazole 100 ml @ 100 mls/hr Q6HRS IV Last administered on 07/27/19at 06:26; Start 07/11/19 at 08:30; Stop 07/27/19 at 09:58; Status DC Micafungin Sodium 100 mg/Dextrose 100 ml @ 100 mls/hr Q24H IV Last administered on 08/18/19at 08:18; Start 07/11/19 at 09:00; Stop 08/18/19 at 20:58; Status DC Propofol 0 ml @ As Directed STK-MED ONCE IV ; Start 07/11/19 at 07:53; Stop 07/11/19 at 07:53; Status DC Etomidate (Amidate) 20 mg STK-MED ONCE IV ; Start 07/11/19 at 07:53; Stop 07/11/19 at 07:54; Status DC Midazolam HCl (Versed) 5 mg STK-MED ONCE .ROUTE ; Start 07/11/19 at 07:57; Stop 07/11/19 at 07:57; Status DC Fentanyl Citrate 30 ml @ 0 mls/hr CONT PRN IV SEE PROTOCOL Last administered on 08/05/19at 06:12; Start 07/11/19 at 08:15; Stop 08/05/19 at 09:19; Status DC Artificial Tears (Artificial Tears) 1 drop PRN Q1HR PRN OU DRY EYE, 1st choice; Start 07/11/19 at 08:15; Stop 08/17/19 at 05:31; Status DC Midazolam HCl 50 mg/Sodium Chloride 50 ml @ 0 mls/hr CONT PRN IV SEE PROTOCOL Last administered on 07/14/19at 22:39; Start 07/11/19 at 08:15; Stop 07/16/19 at 15:59; Status DC Etomidate (Amidate) 8 mg 1X ONCE IV Last administered on 07/11/19at 08:33; Start 07/11/19 at 08:30; Stop 07/11/19 at 08:31; Status DC Succinylcholine Chloride (Anectine) 120 mg 1X ONCE IV Last administered on 07/11/19at 08:34; Start 07/11/19 at 08:30; Stop 07/11/19 at 08:31; Status DC Midazolam HCl (Versed) 5 mg 1X ONCE IV ; Start 07/11/19 at 08:30; Stop 07/11/19 at 08:31; Status DC Potassium Chloride 15 meq/ Bicarbonate Dialysis Soln w/ out KCl 5,007.5 ml @ 1,000 mls/ hr Q5H1M IV Last administered on 07/12/19at 11:11; Start 07/11/19 at 12:00; Stop 07/12/19 at 11:15; Status DC Potassium Chloride 15 meq/ Bicarbonate Dialysis Soln w/ out KCl 5,007.5 ml @ 1,000 mls/ hr Q5H1M IV Last administered on 07/12/19at 11:12; Start 07/11/19 at 12:00; Stop 07/12/19 at 11:17; Status DC Potassium Chloride 15 meq/ Bicarbonate Dialysis Soln w/ out KCl 5,007.5 ml @ 1,000 mls/ hr Q5H1M IV Last administered on 07/12/19at 11:11; Start 07/11/19 at 12:00; Stop 07/12/19 at 11:19; Status DC Sodium Chloride 90 meq/Potassium Chloride 15 meq/ Potassium Phosphate 10 mmol/ Magnesium Sulfate 10 meq/Calcium Gluconate 20 meq/ Multivitamins 10 ml/Chromium/ Copper/Manganese/ Seleni/Zn 0.5 ml/ Total Parenteral Nutrition/Amino Acids/Dextrose/ Fat Emulsion Intravenous 1,400 ml @ 58.333 mls/ hr TPN CONT IV Last administered on 07/11/19at 21:42; Start 07/11/19 at 22:00; Stop 07/12/19 at 21:59; Status DC Heparin Sodium (Porcine) (Heparin Sodium) 5,000 unit Q8HRS SQ Last administered on 07/16/19at 05:55; Start 07/11/19 at 15:00; Stop 07/16/19 at 13:28; Status DC Meropenem 500 mg/ Sodium Chloride 50 ml @ 100 mls/hr Q6HRS IV Last administered on 07/13/19at 06:00; Start 07/12/19 at 09:00; Stop 07/13/19 at 07:29; Status DC Potassium Phosphate 20 mmol/ Sodium Chloride 106.6667 ml @ 51.667 m... 1X ONCE IV Last administered on 07/12/19at 11:22; Start 07/12/19 at 10:15; Stop 07/12/19 at 12:18; Status DC Acetaminophen (Tylenol Supp) 650 mg PRN Q6HRS PRN [place] MILD PAIN / TEMP > 100.3'F Last administered on 09/28/19at 22:16; Start 07/12/19 at 10:30 Potassium Chloride/Water 100 ml @ 100 mls/hr Q1H IV Last administered on 07/12/19at 12:12; Start 07/12/19 at 11:00; Stop 07/12/19 at 12:59; Status DC Potassium Chloride 20 meq/ Bicarbonate Dialysis Soln w/ out KCl 5,010 ml @ 1,000 mls/hr Q5H1M IV Last administered on 07/13/19at 08:48; Start 07/12/19 at 12:00; Stop 07/13/19 at 13:03; Status DC Potassium Chloride 20 meq/ Bicarbonate Dialysis Soln w/ out KCl 5,010 ml @ 1,000 mls/hr Q5H1M IV Last administered on 07/17/19at 14:52; Start 07/12/19 at 11:30; Stop 07/17/19 at 19:59; Status DC Potassium Chloride 20 meq/ Bicarbonate Dialysis Soln w/ out KCl 5,010 ml @ 1,000 mls/hr Q5H1M IV Last administered on 07/17/19at 14:53; Start 07/12/19 at 11:30; Stop 07/17/19 at 19:59; Status DC Sodium Chloride 90 meq/Potassium Chloride 15 meq/ Potassium Phosphate 15 mmol/ Magnesium Sulfate 10 meq/Calcium Gluconate 15 meq/ Multivitamins 10 ml/Chromium/ Copper/Manganese/ Seleni/Zn 0.5 ml/ Total Parenteral Nutrition/Amino Acids/Dextrose/ Fat Emulsion Intravenous 1,400 ml @ 58.333 mls/ hr TPN CONT IV Last administered on 07/12/19at 22:17; Start 07/12/19 at 22:00; Stop 07/13/19 at 21:59; Status DC Cefepime HCl (Maxipime) 2 gm Q12HR IVP Last administered on 07/26/19at 20:56; Start 07/13/19 at 09:00; Stop 07/27/19 at 09:58; Status DC Daptomycin 500 mg/ Sodium Chloride 50 ml @ 100 mls/hr Q48H IV Last administered on 07/29/19at 09:57; Start 07/13/19 at 08:30; Stop 07/29/19 at 10:07; Status DC Lidocaine HCl (Buffered Lidocaine 1%) 3 ml 1X ONCE INJ Last administered on 07/13/19at 10:27; Start 07/13/19 at 10:30; Stop 07/13/19 at 10:31; Status DC Potassium Phosphate 20 mmol/ Sodium Chloride 106.6667 ml @ 51.667 m... 1X ONCE IV Last administered on 07/13/19at 12:51; Start 07/13/19 at 13:00; Stop 07/13/19 at 15:03; Status DC Sodium Chloride 90 meq/Potassium Chloride 15 meq/ Potassium Phosphate 18 mmol/ Magnesium Sulfate 8 meq/Calcium Gluconate 15 meq/ Multivitamins 10 ml/Chromium/ Copper/Manganese/ Seleni/Zn 0.5 ml/ Total Parenteral Nutrition/Amino Acids/Dextrose/ Fat Emulsion Intravenous 1,400 ml @ 58.333 mls/ hr TPN CONT IV Last administered on 07/13/19at 22:16; Start 07/13/19 at 22:00; Stop 07/14/19 at 21:59; Status DC Potassium Chloride 20 meq/ Bicarbonate Dialysis Soln w/ out KCl 5,010 ml @ 1,000 mls/hr Q5H1M IV Last administered on 07/17/19at 14:54; Start 07/13/19 at 16:00; Stop 07/17/19 at 19:59; Status DC Multi-Ingred Cream/Lotion/Oil/ Oint (Artificial Tears Eye Ointment) 1 ramu PRN Q1HR PRN OU DRY EYE, 2nd choice Last administered on 08/01/19at 08:19; Start 07/13/19 at 17:30; Stop 09/21/19 at 14:39; Status DC Sodium Chloride 90 meq/Potassium Chloride 15 meq/ Potassium Phosphate 18 mmol/ Magnesium Sulfate 8 meq/Calcium Gluconate 15 meq/ Multivitamins 10 ml/Chromium/ Copper/Manganese/ Seleni/Zn 0.5 ml/ Total Parenteral Nutrition/Amino Acids/Dextrose/ Fat Emulsion Intravenous 1,400 ml @ 58.333 mls/ hr TPN CONT IV Last administered on 07/14/19at 22:00; Start 07/14/19 at 22:00; Stop 07/15/19 at 21:59; Status DC Albumin Human 500 ml @ 125 mls/hr 1X ONCE IV ; Start 07/14/19 at 14:15; Stop 07/14/19 at 18:14; Status DC Sodium Chloride 90 meq/Potassium Chloride 15 meq/ Potassium Phosphate 18 mmol/ Magnesium Sulfate 8 meq/Calcium Gluconate 15 meq/ Multivitamins 10 ml/Chromium/ Copper/Manganese/ Seleni/Zn 0.5 ml/ Insulin Human Regular 10 unit/ Total Parenteral Nutrition/Amino Acids/Dextrose/ Fat Emulsion Intravenous 1,400 ml @ 58.333 mls/ hr TPN CONT IV Last administered on 07/15/19at 21:43; Start 07/15/19 at 22:00; Stop 07/16/19 at 21:59; Status DC Lidocaine HCl (Buffered Lidocaine 1%) 3 ml STK-MED ONCE .ROUTE ; Start 07/13/19 at 10:00; Stop 07/15/19 at 13:57; Status DC Midazolam HCl 100 mg/Sodium Chloride 100 ml @ 7 mls/hr CONT PRN IV SEE PROTOCOL Last administered on 07/27/19at 15:35; Start 07/16/19 at 16:00; Stop 09/21/19 at 14:38; Status DC Sodium Chloride 90 meq/Potassium Chloride 15 meq/ Potassium Phosphate 18 mmol/ Magnesium Sulfate 8 meq/Calcium Gluconate 15 meq/ Multivitamins 10 ml/Chromium/ Copper/Manganese/ Seleni/Zn 0.5 ml/ Insulin Human Regular 15 unit/ Total Parenteral Nutrition/Amino Acids/Dextrose/ Fat Emulsion Intravenous 1,400 ml @ 58.333 mls/ hr TPN CONT IV Last administered on 07/16/19at 20:34; Start 07/16/19 at 22:00; Stop 07/17/19 at 21:59; Status DC Info (Icu Electrolyte Protocol) 1 ea CONT PRN PRN MC PER PROTOCOL; Start 07/17/19 at 13:15 Sodium Chloride 90 meq/Potassium Chloride 15 meq/ Potassium Phosphate 18 mmol/ Magnesium Sulfate 8 meq/Calcium Gluconate 15 meq/ Multivitamins 10 ml/Chromium/ Copper/Manganese/ Seleni/Zn 0.5 ml/ Insulin Human Regular 15 unit/ Total Parenteral Nutrition/Amino Acids/Dextrose/ Fat Emulsion Intravenous 1,400 ml @ 58.333 mls/ hr TPN CONT IV Last administered on 07/17/19at 22:05; Start 07/17/19 at 22:00; Stop 07/18/19 at 21:59; Status DC Potassium Chloride 15 meq/ Bicarbonate Dialysis Soln w/ out KCl 5,007.5 ml @ 1,000 mls/ hr Q5H1M IV Last administered on 07/20/19at 18:14; Start 07/17/19 at 20:00; Stop 07/21/19 at 13:08; Status DC Potassium Chloride 15 meq/ Bicarbonate Dialysis Soln w/ out KCl 5,007.5 ml @ 1,000 mls/ hr Q5H1M IV Last administered on 07/20/19at 18:14; Start 07/17/19 at 20:00; Stop 07/21/19 at 13:08; Status DC Potassium Chloride 15 meq/ Bicarbonate Dialysis Soln w/ out KCl 5,007.5 ml @ 1,000 mls/ hr Q5H1M IV Last administered on 07/20/19at 18:14; Start 07/17/19 at 20:00; Stop 07/21/19 at 13:08; Status DC Iohexol (Omnipaque 240 Mg/ml) 30 ml 1X ONCE PO Last administered on 07/18/19at 11:30; Start 07/18/19 at 11:30; Stop 07/18/19 at 11:33; Status DC Info (CONTRAST GIVEN -- Rx MONITORING) 1 each PRN DAILY PRN MC SEE COMMENTS; Start 07/18/19 at 11:45; Stop 07/20/19 at 11:44; Status DC Sodium Chloride 90 meq/Potassium Chloride 15 meq/ Potassium Phosphate 18 mmol/ Magnesium Sulfate 8 meq/Calcium Gluconate 15 meq/ Multivitamins 10 ml/Chromium/ Copper/Manganese/ Seleni/Zn 0.5 ml/ Insulin Human Regular 15 unit/ Total Parenteral Nutrition/Amino Acids/Dextrose/ Fat Emulsion Intravenous 1,400 ml @ 58.333 mls/ hr TPN CONT IV Last administered on 07/18/19at 21:47; Start 07/18/19 at 22:00; Stop 07/19/19 at 21:59; Status DC Sodium Chloride 90 meq/Potassium Chloride 15 meq/ Potassium Phosphate 18 mmol/ Magnesium Sulfate 8 meq/Calcium Gluconate 15 meq/ Multivitamins 10 ml/Chromium/ Copper/Manganese/ Seleni/Zn 0.5 ml/ Insulin Human Regular 20 unit/ Total Parenteral Nutrition/Amino Acids/Dextrose/ Fat Emulsion Intravenous 1,400 ml @ 58.333 mls/ hr TPN CONT IV Last administered on 07/19/19at 21:36; Start 07/19/19 at 22:00; Stop 07/20/19 at 21:59; Status DC Alteplase, Recombinant (Cathflo For Central Catheter Clearance) 1 mg 1X ONCE INT CAT Last administered on 07/19/19at 20:03; Start 07/19/19 at 19:30; Stop 07/19/19 at 19:46; Status DC Alteplase, Recombinant (Cathflo For Central Catheter Clearance) 1 mg 1X ONCE INT CAT Last administered on 07/19/19at 22:05; Start 07/19/19 at 22:00; Stop 07/19/19 at 22:01; Status DC Sodium Chloride 90 meq/Potassium Chloride 15 meq/ Potassium Phosphate 18 mmol/ Magnesium Sulfate 8 meq/Calcium Gluconate 15 meq/ Multivitamins 10 ml/Chromium/ Copper/Manganese/ Seleni/Zn 0.5 ml/ Insulin Human Regular 20 unit/ Total Parenteral Nutrition/Amino Acids/Dextrose/ Fat Emulsion Intravenous 1,400 ml @ 58.333 mls/ hr TPN CONT IV Last administered on 07/20/19at 21:30; Start 07/20/19 at 22:00; Stop 07/21/19 at 21:59; Status DC Dexmedetomidine HCl 400 mcg/ Sodium Chloride 100 ml @ 0 mls/hr CONT PRN IV ANXIETY / AGITATION Last administered on 09/17/19at 12:57; Start 07/21/19 at 08:15; Stop 09/17/19 at 18:31; Status DC Sodium Chloride 500 ml @ 500 mls/hr 1X PRN PRN IV ELEVATED BP, SEE COMMENTS; Start 07/21/19 at 08:15 Atropine Sulfate (ATROPINE 0.5mg SYRINGE) 0.5 mg PRN Q5MIN PRN IV SEE COMMENTS; Start 07/21/19 at 08:15 Furosemide (Lasix) 20 mg 1X ONCE IVP Last administered on 07/21/19at 08:19; Start 07/21/19 at 08:15; Stop 07/21/19 at 08:16; Status DC Lidocaine HCl (Buffered Lidocaine 1%) 3 ml STK-MED ONCE .ROUTE ; Start 07/21/19 at 08:39; Stop 07/21/19 at 08:39; Status DC Lidocaine HCl (Buffered Lidocaine 1%) 6 ml 1X ONCE INJ Last administered on 07/21/19at 09:05; Start 07/21/19 at 09:00; Stop 07/21/19 at 09:06; Status DC Sodium Chloride 90 meq/Potassium Chloride 15 meq/ Potassium Phosphate 18 mmol/ Magnesium Sulfate 8 meq/Calcium Gluconate 15 meq/ Multivitamins 10 ml/Chromium/ Copper/Manganese/ Seleni/Zn 0.5 ml/ Insulin Human Regular 20 unit/ Total Parenteral Nutrition/Amino Acids/Dextrose/ Fat Emulsion Intravenous 1,400 ml @ 58.333 mls/ hr TPN CONT IV Last administered on 07/21/19at 22:45; Start 07/21/19 at 22:00; Stop 07/22/19 at 21:59; Status DC Sodium Chloride 1,000 ml @ 1,000 mls/hr Q1H PRN IV hypotension; Start 07/22/19 at 07:30; Stop 07/22/19 at 13:29; Status DC Albumin Human 200 ml @ 200 mls/hr 1X PRN PRN IV Hypotension Last administered on 07/22/19at 09:36; Start 07/22/19 at 07:30; Stop 07/22/19 at 13:29; Status DC Sodium Chloride (Normal Saline Flush) 10 ml 1X PRN PRN IV AP catheter pack; Start 07/22/19 at 07:30; Stop 07/22/19 at 21:29; Status DC Sodium Chloride (Normal Saline Flush) 10 ml 1X PRN PRN IV PSYCHOLOGY LECTURER catheter pack; Start 07/22/19 at 07:30; Stop 07/23/19 at 07:29; Status DC Sodium Chloride 1,000 ml @ 400 mls/hr Q2H30M PRN IV PATENCY; Start 07/22/19 at 07:30; Stop 07/22/19 at 19:29; Status DC Info (PHARMACY MONITORING -- do not chart) 1 each PRN DAILY PRN MC SEE COMMENTS; Start 07/22/19 at 07:30; Stop 07/22/19 at 13:02; Status DC Info (PHARMACY MONITORING -- do not chart) 1 each PRN DAILY PRN MC SEE COMMENTS; Start 07/22/19 at 07:30; Stop 07/24/19 at 12:45; Status DC Sodium Chloride 90 meq/Potassium Chloride 15 meq/ Potassium Phosphate 10 mmol/ Magnesium Sulfate 8 meq/Calcium Gluconate 15 meq/ Multivitamins 10 ml/Chromium/ Copper/Manganese/ Seleni/Zn 0.5 ml/ Insulin Human Regular 25 unit/ Total Par enteral Nutrition/Amino Acids/Dextrose/ Fat Emulsion Intravenous 1,400 ml @ 58.333 mls/ hr TPN CONT IV Last administered on 07/22/19at 22:19; Start 07/22/19 at 22:00; Stop 07/23/19 at 21:59; Status DC Heparin Sodium (Porcine) (Heparin Sodium) 5,000 unit Q12HR SQ Last administered on 08/14/19at 08:59; Start 07/22/19 at 21:00; Stop 08/14/19 at 10:05; Status DC Ondansetron HCl (Zofran) 4 mg PRN Q6HRS PRN IV NAUSEA/VOMITING; Start 07/25/19 at 07:00; Stop 07/26/19 at 06:59; Status DC Fentanyl Citrate (Fentanyl 2ml Vial) 25 mcg PRN Q5MIN PRN IV MILD PAIN 1-3; Start 07/25/19 at 07:00; Stop 07/26/19 at 06:59; Status DC Fentanyl Citrate (Fentanyl 2ml Vial) 50 mcg PRN Q5MIN PRN IV MODERATE TO SEVERE PAIN; Start 07/25/19 at 07:00; Stop 07/26/19 at 06:59; Status DC Ringer's Solution 1,000 ml @ 30 mls/hr Q24H IV ; Start 07/25/19 at 07:00; Stop 07/25/19 at 18:59; Status DC Lidocaine HCl (Xylocaine-Mpf 1% 2ml Vial) 2 ml PRN 1X PRN ID PRIOR TO IV START; Start 07/25/19 at 07:00; Stop 07/26/19 at 06:59; Status DC Prochlorperazine Edisylate (Compazine) 5 mg PACU PRN PRN IV NAUSEA, MRX1; Start 07/25/19 at 07:00; Stop 07/26/19 at 06:59; Status DC Sodium Chloride 1,000 ml @ 1,000 mls/hr Q1H PRN IV hypotension; Start 07/23/19 at 09:10; Stop 07/23/19 at 15:09; Status DC Albumin Human 200 ml @ 200 mls/hr 1X PRN PRN IV Hypotension Last administered on 07/23/19at 10:10; Start 07/23/19 at 09:15; Stop 07/23/19 at 15:14; Status DC Sodium Chloride 1,000 ml @ 400 mls/hr Q2H30M PRN IV PATENCY; Start 07/23/19 at 09:10; Stop 07/23/19 at 21:09; Status DC Info (PHARMACY MONITORING -- do not chart) 1 each PRN DAILY PRN MC SEE COMMENTS; Start 07/23/19 at 09:15; Stop 07/24/19 at 12:45; Status DC Info (PHARMACY MONITORING -- do not chart) 1 each PRN DAILY PRN MC SEE COMMENTS; Start 07/23/19 at 09:15; Stop 07/24/19 at 12:45; Status DC Sodium Chloride 90 meq/Potassium Chloride 15 meq/ Potassium Phosphate 10 mmol/ Magnesium Sulfate 8 meq/Calcium Gluconate 15 meq/ Multivitamins 10 ml/Chromium/ Copper/Manganese/ Seleni/Zn 0.5 ml/ Insulin Human Regular 25 unit/ Total Parenteral Nutrition/Amino Acids/Dextrose/ Fat Emulsion Intravenous 1,400 ml @ 58.333 mls/ hr TPN CONT IV Last administered on 07/23/19at 22:10; Start 07/23/19 at 22:00; Stop 07/24/19 at 21:59; Status DC Magnesium Sulfate 50 ml @ 25 mls/hr PRN DAILY PRN IV for Mag < 1.7 on am labs Last administered on 08/08/19at 17:27; Start 07/24/19 at 09:15 Sodium Chloride 90 meq/Potassium Chloride 15 meq/ Potassium Phosphate 10 mmol/ Magnesium Sulfate 8 meq/Calcium Gluconate 15 meq/ Multivitamins 10 ml/Chromium/ Copper/Manganese/ Seleni/Zn 0.5 ml/ Insulin Human Regular 25 unit/ Total Parenteral Nutrition/Amino Acids/Dextrose/ Fat Emulsion Intravenous 1,400 ml @ 58.333 mls/ hr TPN CONT IV Last administered on 07/24/19at 21:20; Start 07/24/19 at 22:00; Stop 07/25/19 at 21:59; Status DC Sodium Chloride 1,000 ml @ 1,000 mls/hr Q1H PRN IV hypotension; Start 07/24/19 at 12:23; Stop 07/24/19 at 18:22; Status DC Albumin Human 200 ml @ 200 mls/hr 1X ONCE IV Last administered on 07/24/19at 13:34; Start 07/24/19 at 12:30; Stop 07/24/19 at 13:29; Status DC Diphenhydramine HCl (Benadryl) 25 mg 1X PRN PRN IV ITCHING; Start 07/24/19 at 12:30; Stop 07/25/19 at 12:29; Status DC Diphenhydramine HCl (Benadryl) 25 mg 1X PRN PRN IV ITCHING; Start 07/24/19 at 12:30; Stop 07/25/19 at 12:29; Status DC Info (PHARMACY MONITORING -- do not chart) 1 each PRN DAILY PRN MC SEE COMMENTS; Start 07/24/19 at 12:30; Status Cancel Bupivacaine HCl/ Epinephrine Bitart (Sensorcain-Epi 0.5%-1:[id number] Mpf) 30 ml STK-MED ONCE .ROUTE Last administered on 07/25/19at 11:44; Start 07/25/19 at 11:00; Stop 07/25/19 at 11:01; Status DC Cellulose (Surgicel Fibrillar 1x2) 1 each STK-MED ONCE .ROUTE ; Start 07/25/19 at 11:00; Stop 07/25/19 at 11:01; Status DC Sodium Chloride 90 meq/Potassium Chloride 15 meq/ Potassium Phosphate 10 mmol/ Magnesium Sulfate 12 meq/Calcium Gluconate 15 meq/ Multivitamins 10 ml/Chromium/ Copper/Manganese/ Seleni/Zn 0.5 ml/ Insulin Human Regular 25 unit/ Total Parenteral Nutrition/Amino Acids/Dextrose/ Fat Emulsion Intravenous 1,400 ml @ 58.333 mls/ hr TPN CONT IV Last administered on 07/25/19at 22:24; Start 07/25/19 at 22:00; Stop 07/26/19 at 21:59; Status DC Propofol 20 ml @ As Directed STK-MED ONCE IV ; Start 07/25/19 at 11:07; Stop 07/25/19 at 11:07; Status DC Cellulose (Surgicel Hemostat 4x8) 1 each STK-MED ONCE .ROUTE Last administered on 07/25/19at 11:44; Start 07/25/19 at 11:55; Stop 07/25/19 at 11:56; Status DC Sevoflurane (Ultane) 60 ml STK-MED ONCE IH ; Start 07/25/19 at 12:46; Stop 07/25/19 at 12:46; Status DC Sodium Chloride 1,000 ml @ 1,000 mls/hr Q1H PRN IV hypotension; Start 07/25/19 at 13:51; Stop 07/25/19 at 19:50; Status DC Albumin Human 200 ml @ 200 mls/hr 1X PRN PRN IV Hypotension Last administered on 07/25/19at 14:51; Start 07/25/19 at 14:00; Stop 07/25/19 at 19:59; Status DC Diphenhydramine HCl (Benadryl) 25 mg 1X PRN PRN IV ITCHING; Start 07/25/19 at 14:00; Stop 07/26/19 at 13:59; Status DC Diphenhydramine HCl (Benadryl) 25 mg 1X PRN PRN IV ITCHING; Start 07/25/19 at 14:00; Stop 07/26/19 at 13:59; Status DC Sodium Chloride 1,000 ml @ 400 mls/hr Q2H30M PRN IV PATENCY; Start 07/25/19 at 13:51; Stop 07/26/19 at 01:50; Status DC Info (PHARMACY MONITORING -- do not chart) 1 each PRN DAILY PRN MC SEE COMMENTS; Start 07/25/19 at 14:00; Stop 07/28/19 at 08:16; Status DC Heparin Sodium (Porcine) (Hep Lock Adult) 500 unit STK-MED ONCE IVP ; Start 07/26/19 at 09:29; Stop 07/26/19 at 09:30; Status DC Sodium Chloride 1,000 ml @ 1,000 mls/hr Q1H PRN IV hypotension; Start 07/26/19 at 10:43; Stop 07/26/19 at 16:42; Status DC Sodium Chloride 1,000 ml @ 400 mls/hr Q2H30M PRN IV PATENCY; Start 07/26/19 at 10:43; Stop 07/26/19 at 22:42; Status DC Info (PHARMACY MONITORING -- do not chart) 1 each PRN DAILY PRN MC SEE COMMENTS; Start 07/26/19 at 10:45; Status UNV Info (PHARMACY MONITORING -- do not chart) 1 each PRN DAILY PRN MC SEE COMMENTS; Start 07/26/19 at 10:45; Status UNV Sodium Chloride 90 meq/Potassium Chloride 15 meq/ Magnesium Sulfate 12 meq/Calcium Gluconate 15 meq/ Multivitamins 10 ml/Chromium/ Copper/Manganese/ Seleni/Zn 0.5 ml/ Insulin Human Regular 25 unit/ Total Parenteral Nutrition/Amino Acids/Dextrose/ Fat Emulsion Intravenous 1,400 ml @ 58.333 mls/ hr TPN CONT IV Last administered on 07/26/19at 22:13; Start 07/26/19 at 22:00; Stop 07/27/19 at 21:59; Status DC Sodium Chloride 1,000 ml @ 1,000 mls/hr Q1H PRN IV hypotension; Start 07/27/19 at 07:50; Stop 07/27/19 at 13:49; Status DC Albumin Human 200 ml @ 200 mls/hr 1X ONCE IV ; Start 07/27/19 at 08:00; Stop 07/27/19 at 08:53; Status DC Diphenhydramine HCl (Benadryl) 25 mg 1X PRN PRN IV ITCHING; Start 07/27/19 at 08:00; Stop 07/28/19 at 07:59; Status DC Diphenhydramine HCl (Benadryl) 25 mg 1X PRN PRN IV ITCHING; Start 07/27/19 at 08:00; Stop 07/28/19 at 07:59; Status DC Info (PHARMACY MONITORING -- do not chart) 1 each PRN DAILY PRN MC SEE [employer] OMMENTS; Start 07/27/19 at 08:00; Stop 07/28/19 at 08:16; Status DC Albumin Human 50 ml @ 50 mls/hr 1X ONCE IV ; Start 07/27/19 at 08:53; Stop 07/27/19 at 08:56; Status DC Albumin Human 200 ml @ 50 mls/hr PRN 1X PRN IV HYPOTENSION Last administered on 08/02/19at 11:54; Start 07/27/19 at 09:00; Stop 09/08/19 at 11:14; Status DC Meropenem 500 mg/ Sodium Chloride 50 ml @ 100 mls/hr Q12H IV Last administered on 08/16/19at 10:45; Start 07/27/19 at 10:00; Stop 08/16/19 at 12:37; Status DC Sodium Chloride 90 meq/Magnesium Sulfate 12 meq/ Calcium Gluconate 15 meq/ Multivitamins 10 ml/Chromium/ Copper/Manganese/ Seleni/Zn 0.5 ml/ Insulin Human Regular 25 unit/ Total Parenteral Nutrition/Amino Acids/Dextrose/ Fat Emulsion Intravenous 1,400 ml @ 58.333 mls/ hr TPN CONT IV Last administered on 07/27/19at 21:41; Start 07/27/19 at 22:00; Stop 07/28/19 at 21:59; Status DC Sodium Chloride 1,000 ml @ 1,000 mls/hr Q1H PRN IV hypotension; Start 07/28/19 at 07:58; Stop 07/28/19 at 13:57; Status DC Albumin Human 200 ml @ 200 mls/hr 1X PRN PRN IV Hypotension Last administered on 07/28/19at 09:30; Start 07/28/19 at 08:00; Stop 07/28/19 at 13:59; Status DC Sodium Chloride 1,000 ml @ 400 mls/hr Q2H30M PRN IV PATENCY; Start 07/28/19 at 07:58; Stop 07/28/19 at 19:57; Status DC Info (PHARMACY MONITORING -- do not chart) 1 each PRN DAILY PRN MC SEE COMMENTS; Start 07/28/19 at 08:00; Status Cancel Info (PHARMACY MONITORING -- do not chart) 1 each PRN DAILY PRN MC SEE COMMENTS; Start 07/28/19 at 08:15; Status UNV Sodium Chloride 90 meq/Potassium Phosphate 5 mmol/ Magnesium Sulfate 12 meq/Calcium Gluconate 15 meq/ Multivitamins 10 ml/Chromium/ Copper/Manganese/ Seleni/Zn 0.5 ml/ Insulin Human Regular 30 unit/ Total Parenteral Nutrition/Amino Acids/Dextrose/ Fat Emulsion Intravenous 1,400 ml @ 58.333 mls/ hr TPN CONT IV Last administered on 07/28/19at 22:08; Start 07/28/19 at 22:00; Stop 07/29/19 at 21:59; Status DC Linezolid/Dextrose 300 ml @ 300 mls/hr Q12HR IV Last administered on 08/08/19at 20:40; Start 07/29/19 at 11:00; Stop 08/09/19 at 08:10; Status DC Sodium Chloride 90 meq/Potassium Phosphate 15 mmol/ Magnesium Sulfate 12 meq/Calcium Gluconate 15 meq/ Multivitamins 10 ml/Chromium/ Copper/Manganese/ Seleni/Zn 0.5 ml/ Insulin Human Regular 30 unit/ Total Parenteral Nutrition/Amino Acids/Dextrose/ Fat Emulsion Intravenous 1,400 ml @ 58.333 mls/ hr TPN CONT IV Last administered on 07/29/19at 21:49; Start 07/29/19 at 22:00; Stop 07/30/19 at 21:59; Status DC Sodium Chloride 90 meq/Potassium Phosphate 15 mmol/ Magnesium Sulfate 12 meq/Ca lcium Gluconate 15 meq/ Multivitamins 10 ml/Chromium/ Copper/Manganese/ Seleni/Zn 0.5 ml/ Insulin Human Regular 40 unit/ Total Parenteral Nutrition/Amino Acids/Dextrose/ Fat Emulsion Intravenous 1,400 ml @ 58.333 mls/ hr TPN CONT IV Last administered on 07/30/19at 21:21; Start 07/30/19 at 22:00; Stop 07/31/19 at 21:59; Status DC Sodium Chloride 1,000 ml @ 1,000 mls/hr Q1H PRN IV hypotension; Start 07/30/19 at 13:26; Stop 07/30/19 at 19:25; Status DC Albumin Human 200 ml @ 200 mls/hr 1X PRN PRN IV Hypotension Last administered on 07/30/19at 15:00; Start 07/30/19 at 13:30; Stop 07/30/19 at 19:29; Status DC Sodium Chloride (Normal Saline Flush) 10 ml 1X PRN PRN IV AP catheter pack; Start 07/30/19 at 13:30; Stop 07/31/19 at 13:29; Status DC Sodium Chloride (Normal Saline Flush) 10 ml 1X PRN PRN IV PSYCHOLOGY LECTURER catheter pack; Start 07/30/19 at 13:30; Stop 07/31/19 at 13:29; Status DC Sodium Chloride 1,000 ml @ 400 mls/hr Q2H30M PRN IV PATENCY; Start 07/30/19 at 13:26; Stop 07/31/19 at 01:25; Status DC Info (PHARMACY MONITORING -- do not chart) 1 each PRN DAILY PRN MC SEE COMMENTS; Start 07/30/19 at 13:30; Stop 07/30/19 at 13:33; Status DC Info (PHARMACY MONITORING -- do not chart) 1 each PRN DAILY PRN MC SEE COMMENTS; Start 07/30/19 at 13:30; Stop 07/30/19 at 13:34; Status DC Sodium Chloride 90 meq/Potassium Phosphate 19 mmol/ Magnesium Sulfate 12 meq/Calcium Gluconate 15 meq/ Multivitamins 10 ml/Chromium/ Copper/Manganese/ Seleni/Zn 0.5 ml/ Insulin Human Regular 40 unit/ Total Parenteral Nutrition/Amino Acids/Dextrose/ Fat Emulsion Intravenous 1,400 ml @ 58.333 mls/ hr TPN CONT IV Last administered on 07/31/19at 21:54; Start 07/31/19 at 22:00; Stop 08/01/19 at 21:59; Status DC Sodium Chloride 1,000 ml @ 1,000 mls/hr Q1H PRN IV hypotension; Start 08/01/19 at 09:35; Stop 08/01/19 at 15:34; Status DC Albumin Human 200 ml @ 200 mls/hr 1X PRN PRN IV Hypotension; Start 08/01/19 at 09:45; Stop 08/01/19 at 15:44; Status DC Diphenhydramine HCl (Benadryl) 25 mg 1X PRN PRN IV ITCHING; Start 08/01/19 at 09:45; Stop 08/02/19 at 09:44; Status DC Diphenhydramine HCl (Benadryl) 25 mg 1X PRN PRN IV ITCHING; Start 08/01/19 at 09:45; Stop 08/02/19 at 09:44; Status DC Sodium Chloride 1,000 ml @ 400 mls/hr Q2H30M PRN IV PATENCY; Start 08/01/19 at 09:35; Stop 08/01/19 at 21:34; Status DC Info (PHARMACY MONITORING -- do not chart) 1 each PRN DAILY PRN MC SEE COMMENTS; Start 08/01/19 at 09:45; Status Cancel Sodium Chloride 100 meq/Potassium Phosphate 19 mmol/ Magnesium Sulfate 12 meq/Calcium Gluconate 15 meq/ Multivitamins 10 ml/Chromium/ Copper/Manganese/ Seleni/Zn 0.5 ml/ Insulin Human Regular 40 unit/ Potassium Chloride 20 meq/ Total Parenteral Nutrition/Amino Acids/Dextrose/ Fat Emulsion Intravenous 1,400 ml @ 58.333 mls/ hr TPN CONT IV Last administered on 08/01/19at 22:02; Start 08/01/19 at 22:00; Stop 08/02/19 at 21:59; Status DC Furosemide (Lasix) 40 mg 1X ONCE IVP Last administered on 08/01/19at 14:39; Start 08/01/19 at 14:30; Stop 08/01/19 at 14:31; Status DC Metronidazole 100 ml @ 100 mls/hr Q8HRS IV Last administered on 08/09/19at 06:04; Start 08/02/19 at 10:00; Stop 08/09/19 at 08:10; Status DC Sodium Chloride 1,000 ml @ 1,000 mls/hr Q1H PRN IV hypotension; Start 08/02/19 at 08:00; Stop 08/02/19 at 13:59; Status DC Albumin Human 200 ml @ 200 mls/hr 1X PRN PRN IV Hypotension; Start 08/02/19 at 08:00; Stop 08/02/19 at 13:59; Status DC Sodium Chloride 1,000 ml @ 400 mls/hr Q2H30M PRN IV PATENCY; Start 08/02/19 at 08:00; Stop 08/02/19 at 19:59; Status DC Info (PHARMACY MONITORING -- do not chart) 1 each PRN DAILY PRN MC SEE COMMENTS; Start 08/02/19 at 11:30; Status UNV Info (PHARMACY MONITORING -- do not chart) 1 each PRN DAILY PRN MC SEE COMMENTS; Start 08/02/19 at 11:30; Stop 08/04/19 at 12:13; Status DC Sodium Chloride 100 meq/Potassium Phosphate 19 mmol/ Magnesium Sulfate 12 meq/Calcium Gluconate 15 meq/ Multivitamins 10 ml/Chromium/ Copper/Manganese/ Seleni/Zn 0.5 ml/ Insulin Human Regular 40 unit/ Potassium Chloride 20 meq/ Total Parenteral Nutrition/Amino Acids/Dextrose/ Fat Emulsion Intravenous 1,400 ml @ 58.333 mls/ hr TPN CONT IV Last administered on 08/02/19at 21:52; Start 08/02/19 at 22:00; Stop 08/03/19 at 21:59; Status DC Sodium Chloride (Normal Saline Flush) 10 ml QSHIFT PRN IV AFTER MEDS AND BLOOD DRAWS; Start 08/02/19 at 15:00; Stop 08/30/19 at 11:27; Status DC Sodium Chloride (Normal Saline Flush) 10 ml PRN Q5MIN PRN IV AFTER MEDS AND BLOOD DRAWS; Start 08/02/19 at 15:00 Sodium Chloride (Normal Saline Flush) 20 ml PRN Q5MIN PRN IV AFTER MEDS AND BLOOD DRAWS; Start 08/02/19 at 15:00 Sodium Chloride 100 meq/Potassium Phosphate 19 mmol/ Magnesium Sulfate 12 meq/Calcium Gluconate 15 meq/ Multivitamins 10 ml/Chromium/ Copper/Manganese/ Seleni/Zn 0.5 ml/ Insulin Human Regular 40 unit/ Potassium Chloride 20 meq/ Total Parenteral Nutrition/Amino Acids/Dextrose/ Fat Emulsion Intravenous 1,400 ml @ 58.333 mls/ hr TPN CONT IV Last administered on 08/03/19at 21:20; Start 08/03/19 at 22:00; Stop 08/04/19 at 21:59; Status DC Lidocaine HCl (Buffered Lidocaine 1%) 3 ml STK-MED ONCE .ROUTE ; Start 08/03/19 at 13:16; Stop 08/03/19 at 13:16; Status DC Lidocaine HCl (Buffered Lidocaine 1%) 6 ml 1X ONCE INJ Last administered on 08/03/19at 13:45; Start 08/03/19 at 13:30; Stop 08/03/19 at 13:31; Status DC Albumin Human 100 ml @ 100 mls/hr 1X ONCE IV Last administered on 08/03/19at 15:41; Start 08/03/19 at 15:00; Stop 08/03/19 at 15:59; Status DC Albumin Human 50 ml @ 50 mls/hr 1X ONCE IV Last administered on 08/03/19at 15:00; Start 08/03/19 at 15:00; Stop 08/03/19 at 15:59; Status DC Info (PHARMACY MONITORING -- do not chart) 1 each PRN DAILY PRN MC SEE COMMENTS; Start 08/04/19 at 11:30; Status Cancel Info (PHARMACY MONITORING -- do not chart) 1 each PRN DAILY PRN MC SEE COMMENTS; Start 08/04/19 at 11:30; Status UNV Sodium Chloride 100 meq/Potassium Phosphate 10 mmol/ Magnesium Sulfate 12 meq/Calcium Gluconate 15 meq/ Multivitamins 10 ml/Chromium/ Copper/Manganese/ Seleni/Zn 0.5 ml/ Insulin Human Regular 35 unit/ Potassium Chloride 20 meq/ Total Parenteral Nutrition/Amino Acids/Dextrose/ Fat Emulsion Intravenous 1,400 ml @ 58.333 mls/ hr TPN CONT IV Last administered on 08/04/19at 22:10; Start 08/04/19 at 22:00; Stop 08/05/19 at 21:59; Status DC Sodium Chloride 100 meq/Potassium Phosphate 5 mmol/ Magnesium Sulfate 12 meq/Calcium Gluconate 15 meq/ Multivitamins 10 ml/Chromium/ Copper/Manganese/ Seleni/Zn 0.5 ml/ Insulin Human Regular 35 unit/ Potassium Chloride 20 meq/ Total Parenteral Nutrition/Amino Acids/Dextrose/ Fat Emulsion Intravenous 1,400 ml @ 58.333 mls/ hr TPN CONT IV Last administered on 08/05/19at 22:59; Start 08/05/19 at 22:00; Stop 08/06/19 at 21:59; Status DC Sodium Chloride 1,000 ml @ 1,000 mls/hr Q1H PRN IV hypotension; Start 08/06/19 at 08:27; Stop 08/06/19 at 14:26; Status DC Albumin Human 200 ml @ 200 mls/hr 1X PRN PRN IV Hypotension Last administered on 08/06/19at 09:18; Start 08/06/19 at 08:30; Stop 08/06/19 at 14:29; Status DC Sodium Chloride 1,000 ml @ 400 mls/hr Q2H30M PRN IV PATENCY; Start 08/06/19 at 08:27; Stop 08/06/19 at 20:26; Status DC Info (PHARMACY MONITORING -- do not chart) 1 each PRN DAILY PRN MC SEE COMMENTS; Start 08/06/19 at 08:30; Status Cancel Info (PHARMACY MONITORING -- do not chart) 1 each PRN DAILY PRN MC SEE COMMENTS; Start 08/06/19 at 08:30; Stop 08/14/19 at 13:10; Status DC Sodium Chloride 100 meq/Potassium Chloride 40 meq/ Magnesium Sulfate 15 meq/Calcium Gluconate 15 meq/ Multivitamins 10 ml/Chromium/ Copper/Manganese/ Seleni/Zn 0.5 ml/ Insulin Human Regular 35 unit/ Total Parenteral Nutrition/Amino Acids/Dextrose/ Fat Emulsion Intravenous 1,400 ml @ 58.333 mls/ hr TPN CONT IV Last administered on 08/06/19at 22:00; Start 08/06/19 at 22:00; Stop 08/07/19 at 21:59; Status DC Potassium Chloride/Water 100 ml @ 100 mls/hr 1X ONCE IV Last administered on 08/06/19at 17:28; Start 08/06/19 at 14:45; Stop 08/06/19 at 15:44; Status DC Sodium Chloride 100 meq/Potassium Chloride 40 meq/ Magnesium Sulfate 15 meq/Ca lcium Gluconate 15 meq/ Multivitamins 10 ml/Chromium/ Copper/Manganese/ Seleni/Zn 0.5 ml/ Insulin Human Regular 35 unit/ Total Parenteral Nutrition/Amino Acids/Dextrose/ Fat Emulsion Intravenous 1,400 ml @ 58.333 mls/ hr TPN CONT IV Last administered on 08/07/19at 22:46; Start 08/07/19 at 22:00; Stop 08/08/19 at 21:59; Status DC Sodium Chloride 100 meq/Potassium Chloride 40 meq/ Magnesium Sulfate 20 meq/Calcium Gluconate 15 meq/ Multivitamins 10 ml/Chromium/ Copper/Manganese/ Seleni/Zn 0.5 ml/ Insulin Human Regular 35 unit/ Total Parenteral Nutrition/Amino Acids/Dextrose/ Fat Emulsion Intravenous 1,400 ml @ 58.333 mls/ hr TPN CONT IV Last administered on 08/08/19at 22:31; Start 08/08/19 at 22:00; Stop 08/09/19 at 21:59; Status DC Fentanyl Citrate (Fentanyl 2ml Vial) 50 mcg PRN Q2HR PRN IVP PAIN Last administered on 08/15/19at 13:32; Start 08/08/19 at 21:00; Stop 08/16/19 at 12: 53; Status DC Fentanyl Citrate (Fentanyl 2ml Vial) 25 mcg PRN Q2HR PRN IVP PAIN; Start 08/08/19 at 21:00; Stop 08/16/19 at 12:54; Status DC Enoxaparin Sodium (Lovenox 100mg Syringe) 100 mg Q12HR SQ ; Start 08/09/19 at 21:00; Status UNV Amino Acids/ Glycerin/ Electrolytes 1,000 ml @ 75 mls/hr [id number] IV ; Start 08/08/19 at 21:15; Status UNV Sodium Chloride 1,000 ml @ 1,000 mls/hr Q1H PRN IV hypotension; Start 08/09/19 at 07:56; Stop 08/09/19 at 13:55; Status DC Albumin Human 200 ml @ 200 mls/hr 1X PRN PRN IV Hypotension Last administered on 08/09/19at 08:40; Start 08/09/19 at 08:00; Stop 08/09/19 at 13:59; Status DC Sodium Chloride 1,000 ml @ 400 mls/hr Q2H30M PRN IV PATENCY; Start 08/09/19 at 07:56; Stop 08/09/19 at 19:55; Status DC Info (PHARMACY MONITORING -- do not chart) 1 each PRN DAILY PRN MC SEE COMMENTS; Start 08/09/19 at 08:00; Status UNV Info (PHARMACY MONITORING -- do not chart) 1 each PRN DAILY PRN MC SEE COMMENTS; Start 08/09/19 at 08:00; Status UNV Daptomycin 430 mg/ Sodium Chloride 50 ml @ 100 mls/hr Q24H IV Last administered on 08/09/19at 12:35; Start 08/09/19 at 09:00; Stop 08/09/19 at 12:49; Status DC Sodium Chloride 100 meq/Potassium Chloride 40 meq/ Magnesium Sulfate 20 meq/Calcium Gluconate 15 meq/ Multivitamins 10 ml/Chromium/ Copper/Manganese/ Seleni/Zn 0.5 ml/ Insulin Human Regular 35 unit/ Total Parenteral Nutrition/Amino Acids/Dextrose/ Fat Emulsion Intravenous 1,400 ml @ 58.333 mls/ hr TPN CONT IV Last administered on 08/09/19at 21:26; Start 08/09/19 at 22:00; Stop 08/10/19 at 21:59; Status DC Daptomycin 430 mg/ Sodium Chloride 50 ml @ 100 mls/hr Q48H IV ; Start 08/11/19 at 09:00; Stop 08/10/19 at 11:55; Status DC Sodium Chloride 100 meq/Potassium Chloride 40 meq/ Magnesium Sulfate 20 meq/Calcium Gluconate 15 meq/ Multivitamins 10 ml/Chromium/ Copper/Manganese/ Seleni/Zn 0.5 ml/ Insulin Human Regular 35 unit/ Total Parenteral Nutrition/Am tristen Acids/Dextrose/ Fat Emulsion Intravenous 1,400 ml @ 58.333 mls/ hr TPN CONT IV Last administered on 08/10/19at 22:27; Start 08/10/19 at 22:00; Stop 08/11/19 at 21:59; Status DC Daptomycin 430 mg/ Sodium Chloride 50 ml @ 100 mls/hr Q24H IV Last adm inistered on 08/12/19at 15:07; Start 08/10/19 at 13:00; Stop 08/13/19 at 13:15; Status DC Sodium Chloride 100 meq/Potassium Chloride 40 meq/ Magnesium Sulfate 20 meq/Calcium Gluconate 10 meq/ Multivitamins 10 ml/Chromium/ Copper/Manganese/ Seleni/Zn 0.5 ml/ Insulin Human Regular 35 unit/ Total Parenteral Nutrition/Amino Acids/Dextrose/ Fat Emulsion Intravenous 1,400 ml @ 58.333 mls/ hr TPN CONT IV Last administered on 08/12/19at 00:06; Start 08/11/19 at 22:00; Stop 08/12/19 at 21:59; Status DC Alteplase, Recombinant (Cathflo For Central Catheter Clearance) 1 mg 1X ONCE INT CAT Last administered on 08/12/19at 11:44; Start 08/12/19 at 10:45; Stop 08/12/19 at 10:46; Status DC Ondansetron HCl (Zofran) 4 mg PRN Q6HRS PRN IV NAUSEA/VOMITING; Start 08/15/19 at 07:00; Stop 08/16/19 at 06:59; Status DC Fentanyl Citrate (Fentanyl 2ml Vial) 25 mcg PRN Q5MIN PRN IV MILD PAIN 1-3; Start 08/15/19 at 07:00; Stop 08/16/19 at 06:59; Status DC Fentanyl Citrate (Fentanyl 2ml Vial) 50 mcg PRN Q5MIN PRN IV MODERATE TO SEVERE PAIN Last administered on 08/15/19at 10:17; Start 08/15/19 at 07:00; Stop 08/16/19 at 06:59; Status DC Ringer's Solution 1,000 ml @ 30 mls/hr Q24H IV ; Start 08/15/19 at 07:00; Stop 08/15/19 at 18:59; Status DC Lidocaine HCl (Xylocaine-Mpf 1% 2ml Vial) 2 ml PRN 1X PRN ID PRIOR TO IV START; Start 08/15/19 at 07:00; Stop 08/16/19 at 06:59; Status DC Prochlorperazine Edisylate (Compazine) 5 mg PACU PRN PRN IV NAUSEA, MRX1; Start 08/15/19 at 07:00; Stop 08/16/19 at 06:59; Status DC Sodium Acetate 50 meq/Potassium Acetate 55 meq/ Magnesium Sulfate 20 meq/Calcium Gluconate 10 meq/ Multivitamins 10 ml/Chromium/ Copper/Manganese/ Seleni/Zn 0.5 ml/ Insulin Human Regular 35 unit/ Total Parenteral Nutrition/Amino Acids/Dextrose/ Fat Emulsion Intravenous 1,400 ml @ 58.333 mls/ hr TPN CONT IV ; Start 08/12/19 at 22:00; Stop 08/12/19 at 14:15; Status DC Sodium Acetate 50 meq/Potassium Acetate 55 meq/ Magnesium Sulfate 20 meq/Calcium Gluconate 10 meq/ Multivitamins 10 ml/Chromium/ Copper/Manganese/ Seleni/Zn 0.5 ml/ Insulin Human Regular 35 unit/ Total Parenteral Nutrition/Amino Acids/Dextrose/ Fat Emulsion Intravenous 1,800 ml @ 75 mls/hr TPN CONT IV Last administered on 08/12/19at 22:38; Start 08/12/19 at 22:00; Stop 08/13/19 at 21:59; Status DC Sodium Chloride 1,000 ml @ 1,000 mls/hr Q1H PRN IV hypotension; Start 08/12/19 at 15:31; Stop 08/12/19 at 21:30; Status DC Diphenhydramine HCl (Benadryl) 25 mg 1X PRN PRN IV ITCHING; Start 08/12/19 at 15:45; Stop 08/13/19 at 15:44; Status DC Diphenhydramine HCl (Benadryl) 25 mg 1X PRN PRN IV ITCHING; Start 08/12/19 at 15:45; Stop 08/13/19 at 15:44; Status DC Sodium Chloride 1,000 ml @ 400 mls/hr Q2H30M PRN IV PATENCY; Start 08/12/19 at 15:31; Stop 08/13/19 at 03:30; Status DC Info (PHARMACY MONITORING -- do not chart) 1 each PRN DAILY PRN MC SEE COMMENTS; Start 08/12/19 at 15:45; Stop 09/13/19 at 14:14; Status DC Sodium Acetate 50 meq/Potassium Acetate 55 meq/ Magnesium Sulfate 20 meq/Calcium Gluconate 10 meq/ Multivitamins 10 ml/Chromium/ Copper/Manganese/ Seleni/Zn 0.5 ml/ Insulin Human Regular 35 unit/ Total Parenteral Nutrition/Amino Acids/Dextrose/ Fat Emulsion Intravenous 1,800 ml @ 75 mls/hr TPN CONT IV Last administered on 08/13/19at 22:03; Start 08/13/19 at 22:00; Stop 08/14/19 at 21:59; Status DC Daptomycin 430 mg/ Sodium Chloride 50 ml @ 100 mls/hr Q24H IV Last administered on 08/18/19at 13:00; Start 08/13/19 at 13:00; Stop 08/18/19 at 20:58; Status DC Heparin Sodium (Porcine) 1000 unit/Sodium Chloride 1,001 ml @ 1,001 mls/hr 1X ONCE IRR ; Start 08/15/19 at 06:00; Stop 08/15/19 at 06:59; Status DC Potassium Acetate 55 meq/Magnesium Sulfate 20 meq/ Calcium Gluconate 10 meq/ Multivitamins 10 ml/Chromium/ Copper/Manganese/ Seleni/Zn 0.5 ml/ Insulin Human Regular 35 unit/ Total Parenteral Nutrition/Amino Acids/Dextrose/ Fat Emulsion Intravenous 1,920 ml @ 80 mls/hr TPN CONT IV Last administered on 08/14/19at 22:10; Start 08/14/19 at 22:00; Stop 08/15/19 at 21:59; Status DC Dexamethasone Sodium Phosphate (Decadron) 4 mg STK-MED ONCE .ROUTE ; Start 08/15/19 at 10:56; Stop 08/15/19 at 10:57; Status DC Ondansetron HCl (Zofran) 4 mg STK-MED ONCE .ROUTE ; Start 08/15/19 at 10:56; Stop 08/15/19 at 10:57; Status DC Rocuronium [place] (Zemuron) 50 mg STK-MED ONCE .ROUTE ; Start 08/15/19 at 10:56; Stop 08/15/19 at 10:57; Status DC Fentanyl Citrate (Fentanyl 2ml Vial) 100 mcg STK-MED ONCE .ROUTE ; Start 08/15/19 at 10:56; Stop 08/15/19 at 10:57; Status DC Bupivacaine HCl/ Epinephrine Bitart (Sensorcain-Epi 0.5%-1:[id number] Mpf) 30 ml STK-MED ONCE .ROUTE Last administered on 08/15/19at 12:01; Start 08/15/19 at 10:58; Stop 08/15/19 at 10:58; Status DC Cellulose (Surgicel Hemostat 2x14) 1 each STK-MED ONCE .ROUTE ; Start 08/15/19 at 10:58; Stop 08/15/19 at 10:59; Status DC Iohexol (Omnipaque 300 Mg/ml) 50 ml STK-MED ONCE .ROUTE ; Start 08/15/19 at 10:58; Stop 08/15/19 at 10:59; Status DC Cellulose (Surgicel Hemostat 4x8) 1 each STK-MED ONCE .ROUTE ; Start 08/15/19 at 10:58; Stop 08/15/19 at 10:59; Status DC Bisacodyl (Dulcolax Supp) 10 mg STK-MED ONCE .ROUTE ; Start 08/15/19 at 10:59; Stop 08/15/19 at 10:59; Status DC Heparin Sodium (Porcine) 1000 unit/Sodium Chloride 1,001 ml @ 1,001 mls/hr 1X ONCE IRR ; Start 08/15/19 at 12:00; Stop 08/15/19 at 12:59; Status DC Propofol 20 ml @ As Directed STK-MED ONCE IV ; Start 08/15/19 at 11:05; Stop 08/15/19 at 11:05; Status DC Sevoflurane (Ultane) 90 ml STK-MED ONCE IH ; Start 08/15/19 at 11:05; Stop 08/15/19 at 11:05; Status DC Sevoflurane (Ultane) 60 ml STK-MED ONCE IH ; Start 08/15/19 at 12:26; Stop 08/15/19 at 12:27; Status DC Propofol 20 ml @ As Directed STK-MED ONCE IV ; Start 08/15/19 at 12:26; Stop 08/15/19 at 12:27; Status DC Phenylephrine HCl (PHENYLEPHRINE in 0.9% NACL PF) 1 mg STK-MED ONCE IV ; Start 08/15/19 at 12:34; Stop 08/15/19 at 12:34; Status DC Heparin Sodium (Porcine) (Heparin Sodium) 5,000 unit Q12HR SQ Last administered on 08/24/19at 20:57; Start 08/15/19 at 21:00; Stop 08/25/19 at 09:59; Status DC Sodium Chloride (Normal Saline Flush) 3 ml QSHIFT PRN IV AFTER MEDS AND BLOOD DRAWS; Start 08/15/19 at 13:45 Naloxone HCl (Narcan) 0.4 mg PRN Q2MIN PRN IV SEE INSTRUCTIONS Last administered on 09/24/19at 15:15; Start 08/15/19 at 13:45 Sodium Chloride 1,000 ml @ 25 mls/hr Q24H IV Last administered on 09/13/19at 13:37; Start 08/15/19 at 13:37; Stop 09/16/19 at 13:09; Status DC Naloxone HCl (Narcan) 0.4 mg PRN Q2MIN PRN IV SEE INSTRUCTIONS; Start 08/15/19 at 14:30; Status UNV Sodium Chloride 1,000 ml @ 25 mls/hr Q24H IV ; Start 08/15/19 at 14:30; Status UNV Hydromorphone HCl 30 ml @ 0 mls/hr CONT PRN PRN IV PER PROTOCOL Last administered on 08/20/19at 16:08; Start 08/15/19 at 14:30; Stop 08/22/19 at 08:55; Status DC Potassium Acetate 55 meq/Magnesium Sulfate 20 meq/ Calcium Gluconate 10 meq/ Multivitamins 10 ml/Chromium/ Copper/Manganese/ Seleni/Zn 0.5 ml/ Insulin Human Regular 35 unit/ Total Parenteral Nutrition/Amino Acids/Dextrose/ Fat Emulsion Intravenous 1,920 ml @ 80 mls/hr TPN CONT IV Last administered on 08/15/19at 22:01; Start 08/15/19 at 22:00; Stop 08/16/19 at 21:59; Status DC Bumetanide (Bumex) 2 mg [id number] IV Last administered on 08/19/19at 13:50; Start 08/16/19 at 14:00; Stop 08/20/19 at 14:10; Status DC Meropenem 1 gm/ Sodium Chloride 100 ml @ 200 mls/hr Q8HRS IV Last administered on 09/09/19at 05:53; Start 08/16/19 at 14:00; Stop 09/09/19 at 09:31; Status DC Potassium Acetate 55 meq/Magnesium Sulfate 20 meq/ Calcium Gluconate 10 meq/ Multivitamins 10 ml/Chromium/ Copper/Manganese/ Seleni/Zn 0.5 ml/ Insulin Human Regular 35 unit/ Total Parenteral Nutrition/Amino Acids/Dextrose/ Fat Emulsion Intravenous 1,920 ml @ 80 mls/hr TPN CONT IV Last administered on 08/16/19at 22:02; Start 08/16/19 at 22:00; Stop 08/17/19 at 21:59; Status DC Hydromorphone HCl (Dilaudid Standard [employer]) 12 mg STK-MED ONCE IV ; Start 08/15/19 at 14:35; Stop 08/16/19 at 13:53; Status DC Artificial Tears (Artificial Tears) 1 drop PRN Q15MIN PRN OU DRY EYE Last administered on 09/16/19at 10:08; Start 08/17/19 at 05:30 Hydromorphone HCl (Dilaudid Standard [employer]) 12 mg STK-MED ONCE IV ; Start 08/16/19 at 12:05; Stop 08/17/19 at 09:15; Status DC Potassium Acetate 65 meq/Magnesium Sulfate 20 meq/ Calcium Gluconate 10 meq/ Multivitamins 10 ml/Chromium/ Copper/Manganese/ Seleni/Zn 0.5 ml/ Insulin Human Regular 30 unit/ Total Parenteral Nutrition/Amino Acids/Dextrose/ Fat Emulsion Intravenous 1,920 ml @ 80 mls/hr TPN CONT IV Last administered on 08/17/19at 22:22; Start 08/17/19 at 22:00; Stop 08/18/19 at 21:59; Status DC Cyclobenzaprine HCl (Flexeril) 10 mg PRN Q6HRS PRN PO MUSCLE SPASMS; Start 08/18/19 at 10:45 Potassium Acetate 55 meq/Magnesium Sulfate 20 meq/ Calcium Gluconate 10 meq/ Multivitamins 10 ml/Chromium/ Copper/Manganese/ Seleni/Zn 0.5 ml/ Insulin Human Regular 30 unit/ Total Parenteral Nutrition/Amino Acids/Dextrose/ Fat Emulsion Intravenous 1,920 ml @ 80 mls/hr TPN CONT IV Last administered on 08/19/19at 01:00; Start 08/18/19 at 22:00; Stop 08/19/19 at 21:59; Status DC Magnesium Sulfate 50 ml @ 25 mls/hr 1X ONCE IV Last administered on 08/18/19at 17:18; Start 08/18/19 at 12:45; Stop 08/18/19 at 14:44; Status DC Potassium Chloride/Water 100 ml @ 100 mls/hr 1X ONCE IV Last administered on 08/19/19at 11:27; Start 08/19/19 at 12:00; Stop 08/19/19 at 12:59; Status DC Hydromorphone HCl (Dilaudid Standard [employer]) 12 mg STK-MED ONCE IV ; Start 08/17/19 at 10:50; Stop 08/19/19 at 11:02; Status DC Hydromorphone HCl (Dilaudid Standard [employer]) 12 mg STK-MED ONCE IV ; Start 08/18/19 at 13:47; Stop 08/19/19 at 11:03; Status DC Potassium Acetate 30 meq/Magnesium Sulfate 20 meq/ Calcium Gluconate 10 meq/ Multivitamins 10 ml/Chromium/ Copper/Manganese/ Seleni/Zn 0.5 ml/ Insulin Human Regular 30 unit/ Potassium Chloride 30 meq/ Total Parenteral Nutrition/Amino Acids/Dextrose/ Fat Emulsion Intravenous 1,920 ml @ 80 mls/hr TPN CONT IV Last administered on 08/19/19at 22:34; Start 08/19/19 at 22:00; Stop 08/20/19 at 21:59; Status DC Potassium Chloride/Water 100 ml @ 100 mls/hr Q1H IV Last administered on 0at 13:05; Start 08/20/19 at 07:00; Stop 08/20/19 at 10:59; Status DC Magnesium Sulfate 50 ml @ 25 mls/hr 1X ONCE IV Last administered on 08/20/19at 10:34; Start 08/20/19 at 10:30; Stop 08/20/19 at 12:29; Status DC Potassium Chloride 75 meq/ Magnesium Sulfate 20 meq/Calcium Gluconate 10 meq/ Multivitamins 10 ml/Chromium/ Copper/Manganese/ Seleni/Zn 0.5 ml/ Insulin Human Regular 30 unit/ Total Parenteral Nutrition/Amino Acids/Dextrose/ Fat Emulsion Intravenous 1,920 ml @ 80 mls/hr TPN CONT IV Last administered on 08/20/19at 21:51; Start 08/20/19 at 22:00; Stop 08/21/19 at 22:00; Status DC Potassium Chloride 75 meq/ Magnesium Sulfate 20 meq/Calcium Gluconate 10 meq/ Multivitamins 10 ml/Chromium/ Copper/Manganese/ Seleni/Zn 0.5 ml/ Insulin Human Regular 25 unit/ Total Parenteral Nutrition/Amino Acids/Dextrose/ Fat Emulsion Intravenous 1,920 ml @ 80 mls/hr TPN CONT IV Last administered on 08/21/19at 22:04; Start 08/21/19 at 22:00; Stop 08/22/19 at 21:59; Status DC Hydromorphone HCl (Dilaudid) 0.4 mg PRN Q4HRS PRN IVP PAIN Last administered on 08/22/19at 10:57; Start 08/22/19 at 09:00; Stop 08/22/19 at 18:59; Status DC Micafungin Sodium 100 mg/Dextrose 100 ml @ 100 mls/hr Q24H IV Last administered on 09/13/19at 12:17; Start 08/22/19 at 11:00; Stop 09/14/19 at 09:59; Status DC Daptomycin 485 mg/ Sodium Chloride 50 ml @ 100 mls/hr Q24H IV Last administered on 08/29/19at 13:10; Start 08/22/19 at 11:00; Stop 08/30/19 at 07:44; Status DC Potassium Chloride 75 meq/ Magnesium Sulfate 15 meq/Calcium Gluconate 8 meq/ Multivitamins 10 ml/Chromium/ Copper/Manganese/ Seleni/Zn 0.5 ml/ Insulin Human Regular 25 unit/ Total Parenteral Nutrition/Amino Acids/Dextrose/ Fat Emulsion Intravenous 1,920 ml @ 80 mls/hr TPN CONT IV Last administered on 08/22/19at 23:08; Start 08/22/19 at 22:00; Stop 08/23/19 at 21:59; Status DC Haloperidol Lactate (Haldol Inj) 3 mg 1X ONCE IVP Last administered on 08/22/19at 14:37; Start 08/22/19 at 14:30; Stop 08/22/19 at 14:31; Status DC Hydromorphone HCl (Dilaudid) 1 mg PRN Q4HRS PRN IVP PAIN Last administered on 09/05/19at 06:25; Start 08/22/19 at 19:00; Stop 09/05/19 at 17:10; Status DC Potassium Chloride 75 meq/ Magnesium Sulfate 15 meq/Calcium Gluconate 8 meq/ Multivitamins 10 ml/Chromium/ Copper/Manganese/ Seleni/Zn 0.5 ml/ Insulin Human Regular 20 unit/ Total Parenteral Nutrition/Amino Acids/Dextrose/ Fat Emulsion Intravenous 1,920 ml @ 80 mls/hr TPN CONT IV Last administered on 08/23/19at 22:10; Start 08/23/19 at 22:00; Stop 08/24/19 at 21:59; Status DC Lidocaine HCl (Buffered Lidocaine 1%) 3 ml STK-MED ONCE .ROUTE ; Start 08/24/19 at 11:31; Stop 08/24/19 at 11:31; Status DC Lidocaine HCl (Buffered Lidocaine 1%) 3 ml STK-MED ONCE .ROUTE ; Start 08/24/19 at 12:28; Stop 08/24/19 at 12:29; Status DC Lidocaine HCl (Buffered Lidocaine 1%) 6 ml 1X ONCE INJ Last administered on 08/24/19at 12:53; Start 08/24/19 at 12:45; Stop 08/24/19 at 12:46; Status DC Potassium Chloride 75 meq/ Magnesium Sulfate 15 meq/Calcium Gluconate 8 meq/ Multivitamins 10 ml/Chromium/ Copper/Manganese/ Seleni/Zn 0.5 ml/ Insulin Human Regular 20 unit/ Total Parenteral Nutrition/Amino Acids/Dextrose/ Fat Emulsion Intravenous 1,920 ml @ 80 mls/hr TPN CONT IV Last administered on 08/24/19at 22:00; Start 08/24/19 at 22:00; Stop 08/25/19 at 21:59; Status DC Potassium Chloride 75 meq/ Magnesium Sulfate 15 meq/Calcium Gluconate 8 meq/ Multivitamins 10 ml/Chromium/ Copper/Manganese/ Seleni/Zn 0.5 ml/ Insulin Human Regular 15 unit/ Total Parenteral Nutrition/Amino Acids/Dextrose/ Fat Emulsion Intravenous 1,920 ml @ 80 mls/hr TPN CONT IV Last administered on 08/25/19at 22:28; Start 08/25/19 at 22:00; Stop 08/26/19 at 21:59; Status DC Vecuronium [place] (Norcuron Bolus) 6 mg PRN Q6HRS PRN IV VENT ASYNCHRONY; Start 08/25/19 at 19:15; Stop 08/25/19 at 19:35; Status DC Bumetanide (Bumex) 2 mg 1X ONCE IV Last administered on 08/25/19at 22:09; Start 08/25/19 at 19:45; Stop 08/25/19 at 19:46; Status DC Lidocaine HCl (Buffered Lidocaine 1%) 3 ml STK-MED ONCE .ROUTE ; Start 08/26/19 at 07:59; Stop 08/26/19 at 07:59; Status DC Midazolam HCl (Versed) 5 mg STK-MED ONCE .ROUTE ; Start 08/26/19 at 08:36; Stop 08/26/19 at 08:36; Status DC Fentanyl Citrate (Fentanyl 5ml Vial) 250 mcg STK-MED ONCE .ROUTE ; Start 08/26/19 at 08:36; Stop 08/26/19 at 08:37; Status DC Lidocaine HCl (Buffered Lidocaine 1%) 3 ml 1X ONCE IJ Last administered on 08/26/19at 09:30; Start 08/26/19 at 09:15; Stop 08/26/19 at 09:16; Status DC Midazolam HCl (Versed) 5 mg 1X ONCE IV Last administered on 08/26/19at 09:30; Start 08/26/19 at 09:15; Stop 08/26/19 at 09:16; Status DC Fentanyl Citrate (Fentanyl 5ml Vial) 250 mcg 1X ONCE IV Last administered on 08/26/19at 09:30; Start 08/26/19 at 09:15; Stop 08/26/19 at 09:16; Status DC Bumetanide (Bumex) 2 mg DAILY IV Last administered on 09/05/19at 08:07; Start 08/26/19 at 10:00; Stop 09/05/19 at 17:15; Status DC Potassium Chloride 75 meq/ Magnesium Sulfate 15 meq/ Multivitamins 10 ml/Chromium/ Copper/Manganese/ Seleni/Zn 0.5 ml/ Insulin Human Regular 15 unit/ Total Parenteral Nutrition/Amino Acids/Dextrose/ Fat Emulsion Intravenous 1,920 ml @ 80 mls/hr TPN CONT IV Last administered on 08/26/19at 21:59; Start 08/26/19 at 22:00; Stop 08/27/19 at 21:59; Status DC Metoclopramide HCl (Reglan Vial) 10 mg PRN Q3HRS PRN IVP NAUSEA/VOMITING-3rd choice Last administered on 09/01/19at 04:25; Start 08/27/19 at 16:45 Potassium Chloride 75 meq/ Magnesium Sulfate 15 meq/ Multivitamins 10 ml/Chromium/ Copper/Manganese/ Seleni/Zn 0.5 ml/ Insulin Human Regular 15 unit/ Total Parenteral Nutrition/Amino Acids/Dextrose/ Fat Emulsion Intravenous 1,920 ml @ 80 mls/hr TPN CONT IV Last administered on 08/27/19at 22:41; Start 08/27/19 at 22:00; Stop 08/28/19 at 21:59; Status DC Magnesium Sulfate 50 ml @ 25 mls/hr 1X ONCE IV Last administered on 08/28/19at 10:44; Start 08/28/19 at 09:00; Stop 08/28/19 at 10:59; Status DC Potassium Chloride/Water 100 ml @ 100 mls/hr 1X ONCE IV Last administered on 08/28/19at 09:37; Start 08/28/19 at 09:00; Stop 08/28/19 at 09:59; Status DC Duloxetine HCl (Cymbalta) 30 mg DAILY PO Last administered on 08/29/19at 09:48; Start 08/28/19 at 14:00; Stop 08/31/19 at 10:25; Status DC Potassium Chloride 80 meq/ Magnesium Sulfate 20 meq/ Multivitamins 10 ml/Chromium/ Copper/Manganese/ Seleni/Zn 0.5 ml/ Insulin Human Regular 15 unit/ Total Parenteral Nutrition/Amino Acids/Dextrose/ Fat Emulsion Intravenous 1,920 ml @ 80 mls/hr TPN CONT IV Last administered on 08/28/19at 21:42; Start 08/28/19 at 22:00; Stop 08/29/19 at 21:59; Status DC Potassium Chloride 80 meq/ Magnesium Sulfate 20 meq/ Multivitamins 10 ml/Chromium/ Copper/Manganese/ Seleni/Zn 0.5 ml/ Insulin Human Regular 15 unit/ Total Parenteral Nutrition/Amino Acids/Dextrose/ Fat Emulsion Intravenous 1,920 ml @ 80 mls/hr TPN CONT IV Last administered on 08/29/19at 22:20; Start 08/29/19 at 22:00; Stop 08/30/19 at 21:59; Status DC Lidocaine HCl (Buffered Lidocaine 1%) 3 ml STK-MED ONCE .ROUTE ; Start 08/30/19 at 09:54; Stop 08/30/19 at 09:55; Status DC Hydromorphone HCl (Dilaudid Standard [employer]) 12 mg STK-MED ONCE IV ; Start 08/19/19 at 15:50; Stop 08/30/19 at 11:24; Status DC Potassium Chloride 80 meq/ Magnesium Sulfate 20 meq/ Multivitamins 10 ml/Chromium/ Copper/Manganese/ Seleni/Zn 0.5 ml/ Insulin Human Regular 15 unit/ Total Parenteral Nutrition/Amino Acids/Dextrose/ Fat Emulsion Intravenous 1,920 ml @ 80 mls/hr TPN CONT IV Last administered on 08/30/19at 21:40; Start 08/30/19 at 22:00; Stop 08/31/19 at 21:59; Status DC Lidocaine HCl (Buffered Lidocaine 1%) 6 ml 1X ONCE INJ Last administered on 08/30/19at 14:15; Start 08/30/19 at 14:15; Stop 08/30/19 at 14:16; Status DC Potassium Chloride 80 meq/ Magnesium Sulfate 20 meq/ Multivitamins 10 ml/Chromium/ Copper/Manganese/ Seleni/Zn 1 ml/ Insulin Human Regular 15 unit/ Total Parenteral Nutrition/Amino Acids/Dextrose/ Fat Emulsion Intravenous 1,920 ml @ 80 mls/hr TPN CONT IV Last administered on 08/31/19at 22:04; Start 08/31/19 at 22:00; Stop 09/01/19 at 21:59; Status DC Potassium Chloride/Water 100 ml @ 100 mls/hr 1X ONCE IV Last administered on 09/01/19at 11:34; Start 09/01/19 at 11:00; Stop 09/01/19 at 11:59; Status DC Potassium Chloride 90 meq/ Magnesium Sulfate 20 meq/ Multivitamins 10 ml/Chromium/ Copper/Manganese/ Seleni/Zn 1 ml/ Insulin Human Regular 15 unit/ Total Parenteral Nutrition/Amino Acids/Dextrose/ Fat Emulsion Intravenous 1,920 ml @ 80 mls/hr TPN CONT IV Last administered on 09/01/19at 22:57; Start 09/01/19 at 22:00; Stop 09/02/19 at 21:59; Status DC Potassium Chloride 90 meq/ Magnesium Sulfate 20 meq/ Multivitamins 10 ml/Chromium/ Copper/Manganese/ Seleni/Zn 1 ml/ Insulin Human Regular 15 unit/ Total Parenteral Nutrition/Amino Acids/Dextrose/ Fat Emulsion Intravenous 1,920 ml @ 80 mls/hr TPN CONT IV Last administered on 09/02/19at 22:48; Start 09/02/19 at 22:00; Stop 09/03/19 at 21:59; Status DC Potassium Chloride 90 meq/ Magnesium Sulfate 20 meq/ Multivitamins 10 ml/Chromium/ Copper/Manganese/ Seleni/Zn 1 ml/ Insulin Human Regular 15 unit/ Total Parenteral Nutrition/Amino Acids/Dextrose/ Fat Emulsion Intravenous 1,890 ml @ 78.75 mls/ hr TPN CONT IV Last administered on 09/03/19at 22:15; Start 09/03/19 at 22:00; Stop 09/04/19 at 21:59; Status DC Linezolid/Dextrose 300 ml @ 300 mls/hr Q12HR IV Last administered on 09/06/19at 21:08; Start 09/04/19 at 09:00; Stop 09/07/19 at 08:11; Status DC Daptomycin 450 mg/ Sodium Chloride 50 ml @ 100 mls/hr Q24H IV Last administered on 09/07/19at 09:25; Start 09/04/19 at 09:00; Stop 09/08/19 at 08:30; Status DC Potassium Chloride 90 meq/ Magnesium Sulfate 20 meq/ Multivitamins 10 ml/Chromium/ Copper/Manganese/ Seleni/Zn 1 ml/ Insulin Human Regular 15 unit/ Total Parenteral Nutrition/Amino Acids/Dextrose/ Fat Emulsion Intravenous 1,890 ml @ 78.75 mls/ hr TPN CONT IV Last administered on 09/04/19at 21:34; Start 09/04/19 at 22:00; Stop 09/05/19 at 21:59; Status DC Lorazepam (Ativan Inj) 2 mg STK-MED ONCE .ROUTE ; Start 09/04/19 at 14:58; Stop 09/04/19 at 14:58; Status DC Metoprolol Tartrate (Lopressor Vial) 5 mg 1X ONCE IVP Last administered on 09/04/19at 15:31; Start 09/04/19 at 15:15; Stop 09/04/19 at 15:16; Status DC Lorazepam (Ativan Inj) 2 mg 1X ONCE IVP Last administered on 09/04/19at 15:30; Start 09/04/19 at 15:15; Stop 09/04/19 at 15:16; Status DC Enoxaparin Sodium (Lovenox 40mg Syringe) 40 mg Q24H SQ Last administered on 09/23/19at 17:44; Start 09/04/19 at 17:00; Stop 09/25/19 at 06:50; Status DC Lorazepam (Ativan Inj) 1 mg PRN Q4HRS PRN IVP ANXIETY / AGITATION MILD-MOD Last administered on 09/18/19at 15:55; Start 09/04/19 at 19:15; Stop 09/20/19 at 11:45; Status DC Lorazepam (Ativan Inj) 2 mg PRN Q4HRS PRN IVP ANXIETY / AGITATION SEVERE Last administered on 09/19/19at 07:55; Start 09/04/19 at 19:15; Stop 09/20/19 at 11:45; Status DC Fentanyl Citrate (Fentanyl 2ml Vial) 50 mcg PRN Q4HRS PRN IVP SEVERE PAIN Last administered on 10/01/19at 05:15; Start 09/05/19 at 13:15 Fentanyl Citrate (Fentanyl 2ml Vial) 25 mcg PRN Q4HRS PRN IVP MODERATE PAIN L ast administered on 10/01/19at 00:27; Start 09/05/19 at 13:15 Potassium Chloride 90 meq/ Magnesium Sulfate 20 meq/ Multivitamins 10 ml/Chromium/ Copper/Manganese/ Seleni/Zn 1 ml/ Insulin Human Regular 15 unit/ Total Parenteral Nutrition/Amino Acids/Dextrose/ Fat Emulsion Intravenous 1,890 ml @ 78.75 mls/ hr TPN CONT IV Last administered on 09/05/19at 22:18; Start 09/05/19 at 22:00; Stop 09/06/19 at 21:59; Status DC Furosemide (Lasix) 40 mg 1X ONCE IVP Last administered on 09/05/19at 21:51; Start 09/05/19 at 21:45; Stop 09/05/19 at 21:48; Status DC Albumin Human 100 ml @ 100 mls/hr 1X PRN PRN IV SEE COMMENTS; Start 09/06/19 at 01:30 Furosemide (Lasix) 40 mg [id number] IVP Last administered on 09/21/19at 08:04; Start 09/06/19 at 14:00; Stop 09/21/19 at 13:07; Status DC Potassium Chloride 90 meq/ Magnesium Sulfate 20 meq/ Multivitamins 10 ml/Chromium/ Copper/Manganese/ Seleni/Zn 1 ml/ Insulin Human Regular 15 unit/ Total Parenteral Nutrition/Amino Acids/Dextrose/ Fat Emulsion Intravenous 1,800 ml @ 75 mls/hr TPN CONT IV Last administered on 09/06/19at 22:31; Start 09/06/19 at 22:00; Stop 09/07/19 at 21:59; Status DC Potassium Chloride 90 meq/ Magnesium Sulfate 20 meq/ Multivitamins 10 ml/Chromium/ Copper/Manganese/ Seleni/Zn 1 ml/ Insulin Human Regular 15 unit/ Total Parenteral Nutrition/Amino Acids/Dextrose/ Fat Emulsion Intravenous 1,800 ml @ 75 mls/hr TPN CONT IV Last administered on 09/07/19at 22:28; Start 09/07/19 at 22:00; Stop 09/08/19 at 21:59; Status DC Potassium Chloride 110 meq/ Magnesium Sulfate 20 meq/ Multivitamins 10 ml/Chromium/ Copper/Manganese/ Seleni/Zn 1 ml/ Insulin Human Regular 15 unit/ Total Parenteral Nutrition/Amino Acids/Dextrose/ Fat Emulsion Intravenous 1,800 ml @ 75 mls/hr TPN CONT IV Last administered on 09/08/19at 22:01; Start 09/08/19 at 22:00; Stop 09/09/19 at 21:59; Status DC Saliva Substitute (Biotene Moisturizing Mouth) 2 spray PRN Q15MIN PRN PO DRY MOUTH; Start 09/08/19 at 11:00 Potassium Chloride 110 meq/ Magnesium Sulfate 20 meq/ Multivitamins 10 ml/Chromium/ Copper/Manganese/ Seleni/Zn 1 ml/ Insulin Human Regular 15 unit/ Total Parenteral Nutrition/Amino Acids/Dextrose/ Fat Emulsion Intravenous 1,800 ml @ 75 mls/hr TPN CONT IV Last administered on 09/09/19at 22:21; Start 09/09/19 at 22:00; Stop 09/10/19 at 21:59; Status DC Potassium Chloride 110 meq/ Magnesium Sulfate 20 meq/ Multivitamins 10 ml/Chromium/ Copper/Manganese/ Seleni/Zn 1 ml/ Insulin Human Regular 15 unit/ Total Parenteral Nutrition/Amino Acids/Dextrose/ Fat Emulsion Intravenous 1,800 ml @ 75 mls/hr TPN CONT IV Last administered on 09/10/19at 22:04; Start 09/10/19 at 22:00; Stop 09/11/19 at 21:59; Status DC Potassium Chloride 110 meq/ Magnesium Sulfate 20 meq/ Multivitamins 10 ml/Chromium/ Copper/Manganese/ Seleni/Zn 1 ml/ Insulin Human Regular 15 unit/ Total Parenteral Nutrition/Amino Acids/Dextrose/ Fat Emulsion Intravenous 1,800 ml @ 75 mls/hr TPN CONT IV Last administered on 09/11/19at 22:48; Start 09/11/19 at 22:00; Stop 09/12/19 at 21:59; Status DC Potassium Chloride 70 meq/ Magnesium Sulfate 20 meq/ Multivitamins 10 ml/Chromium/ Copper/Manganese/ Seleni/Zn 1 ml/ Insulin Human Regular 15 unit/ Total Parenteral Nutrition/Amino Acids/Dextrose/ Fat Emulsion Intravenous 1,800 ml @ 75 mls/hr TPN CONT IV Last administered on 09/12/19at 21:39; Start 09/12/19 at 22:00; Stop 09/13/19 at 21:59; Status DC Meropenem 500 mg/ Sodium Chloride 50 ml @ 100 mls/hr Q6HRS IV Last admi nistered on 09/14/19at 06:02; Start 09/12/19 at 18:00; Stop 09/14/19 at 09:59; Status DC Barium Sulfate (Varibar Thin Liquid Apple) 148 gm 1X ONCE PO ; Start 09/13/19 at 11:45; Stop 09/13/19 at 11:49; Status DC Potassium Chloride 70 meq/ Magnesium Sulfate 20 meq/ Multivitamins 10 ml/Chromium/ Copper/Manganese/ Seleni/Zn 1 ml/ Insulin Human Regular 15 unit/ Total Parenteral Nutrition/Amino Acids/Dextrose/ Fat Emulsion Intravenous 1,800 ml @ 75 mls/hr TPN CONT IV Last administered on 09/13/19at 22:27; Start 09/13/19 at 22:00; Stop 09/14/19 at 21:59; Status DC Piperacillin Sod/ Tazobactam Sod 3.375 gm/Sodium Chloride 50 ml @ 100 mls/hr Q6HRS IV Last administered on 09/22/19at 06:10; Start 09/14/19 at 12:00; Stop 09/22/19 at 07:26; Status DC Potassium Chloride 70 meq/ Magnesium Sulfate 20 meq/ Multivitamins 10 ml/Chromium/ Copper/Manganese/ Seleni/Zn 1 ml/ Insulin Human Regular 15 unit/ Total Parenteral Nutrition/Amino Acids/Dextrose/ Fat Emulsion Intravenous 1,800 ml @ 75 mls/hr TPN CONT IV Last administered on 09/14/19at 22:03; Start 09/14/19 at 22:00; Stop 09/15/19 at 21:59; Status DC Potassium Chloride 70 meq/ Magnesium Sulfate 20 meq/ Multivitamins 10 ml/Chromium/ Copper/Manganese/ Seleni/Zn 1 ml/ Insulin Human Regular 15 unit/ Total Parenteral Nutrition/Amino Acids/Dextrose/ Fat Emulsion Intravenous 1,800 ml @ 75 mls/hr TPN CONT IV Last administered on 09/15/19at 22:33; Start 09/15/19 at 22:00; Stop 09/16/19 at 21:59; Status DC Potassium Chloride 70 meq/ Magnesium Sulfate 20 meq/ Multivitamins 10 m l/Chromium/ Copper/Manganese/ Seleni/Zn 1 ml/ Insulin Human Regular 15 unit/ Total Parenteral Nutrition/Amino Acids/Dextrose/ Fat Emulsion Intravenous 1,800 ml @ 75 mls/hr TPN CONT IV Last administered on 09/16/19at 23:13; Start 09/16/19 at 22:00; Stop 09/17/19 at 21:59; Status DC Potassium Chloride 80 meq/ Magnesium Sulfate 20 meq/ Multivitamins 10 ml/Chromium/ Copper/Manganese/ Seleni/Zn 1 ml/ Insulin Human Regular 15 unit/ Total Parenteral Nutrition/Amino Acids/Dextrose/ Fat Emulsion Intravenous 1,800 ml @ 75 mls/hr TPN CONT IV Last administered on 09/17/19at 22:30; Start 09/17/19 at 22:00; Stop 09/18/19 at 21:59; Status DC Potassium Chloride 80 meq/ Magnesium Sulfate 20 meq/ Multivitamins 10 ml/Chromium/ Copper/Manganese/ Seleni/Zn 1 ml/ Insulin Human Regular 15 unit/ Total Parenteral Nutrition/Amino Acids/Dextrose/ Fat Emulsion Intravenous 1,800 ml @ 75 mls/hr TPN CONT IV Last administered on 09/18/19at 21:54; Start 09/18/19 at 22:00; Stop 09/19/19 at 21:59; Status DC Potassium Chloride/Water 100 ml @ 100 mls/hr 1X ONCE IV Last administered on 09/19/19at 10:15; Start 09/19/19 at 10:00; Stop 09/19/19 at 10:59; Status DC Potassium Chloride 90 meq/ Magnesium Sulfate 20 meq/ Multivitamins 10 ml/Chromium/ Copper/Manganese/ Seleni/Zn 1 ml/ Insulin Human Regular 20 unit/ Total Parenteral Nutrition/Amino Acids/Dextrose/ Fat Emulsion Intravenous 1,800 ml @ 75 mls/hr TPN CONT IV Last administered on 09/19/19at 22:28; Start 09/19/19 at 22:00; Stop 09/20/19 at 21:59; Status DC Potassium Chloride 90 meq/ Magnesium Sulfate 20 meq/ Multivitamins 10 ml/Chromium/ Copper/Manganese/ Seleni/Zn 1 ml/ Insulin Human Regular 20 unit/ Total Parenteral Nutrition/Amino Acids/Dextrose/ Fat Emulsion Intravenous 1,800 ml @ 75 mls/hr TPN CONT IV Last administered on 09/20/19at 22:08; Start 09/20/19 at 22:00; Stop 09/21/19 at 21:59; Status DC Lorazepam (Ativan Inj) 0.25 mg PRN Q4HRS PRN IVP ANXIETY / AGITATION Last administered on 10/01/19at 02:25; Start 09/21/19 at 07:30 Potassium Chloride 90 meq/ Magnesium Sulfate 20 meq/ Multivitamins 10 ml/Chromium/ Copper/Manganese/ Seleni/Zn 1 ml/ Insulin Human Regular 20 unit/ Total Parenteral Nutrition/Amino Acids/Dextrose/ Fat Emulsion Intravenous 1,800 ml @ 75 mls/hr TPN CONT IV Last administered on 09/21/19at 23:13; Start 09/21/19 at 22:00; Stop 09/22/19 at 21:59; Status DC Furosemide (Lasix) 40 mg DAILY IVP Last administered on 09/23/19at 11:14; Start 09/21/19 at 13:30; Stop 09/25/19 at 09:12; Status DC Fluoxetine HCl (PROzac) 20 mg QHS PEG Last administered on 09/30/19at 20:34; Start 09/22/19 at 21:00 Fentanyl (Duragesic 50mcg/ Hr Patch) 1 patch Q72H TD Last administered on 09/22/19at 21:22; Start 09/22/19 at 21:00 Potassium Chloride 40 meq/ Potassium Acetate 60 meq/Magnesium Sulfate 10 meq/ Multivitamins 10 ml/Chromium/ Copper/Manganese/ Seleni/Zn 1 ml/ Insulin Human Regular 20 unit/ Total Parenteral Nutrition/Amino Acids/Dextrose/ Fat Emulsion Intravenous 1,800 ml @ 75 mls/hr TPN CONT IV Last administered on 09/23/19at 00:03; Start 09/22/19 at 22:00; Stop 09/23/19 at 21:59; Status DC Potassium Acetate 80 meq/Magnesium Sulfate 5 meq/ Multivitamins 10 ml/Chromium/ Copper/Manganese/ Seleni/Zn 1 ml/ Insulin Human Regular 20 unit/ Total Parenteral Nutrition/Amino Acids/Dextrose/ Fat Emulsion Intravenous 1,920 ml @ 80 mls/hr TPN CONT IV Last administered on 09/23/19at 21:59; Start 09/23/19 at 22:00; Stop 09/24/19 at 21:59; Status DC Potassium Acetate 60 meq/Magnesium Sulfate 5 meq/ Multivitamins 10 ml/Chromium/ Copper/Manganese/ Seleni/Zn 1 ml/ Insulin Human Regular 30 unit/ Total Parenteral Nutrition/Amino Acids/Dextrose/ Fat Emulsion Intravenous 1,920 ml @ 80 mls/hr TPN CONT IV Last administered on 09/24/19at 21:54; Start 09/24/19 at 22:00; Stop 09/25/19 at 21:59; Status DC Norepinephrine Bitartrate 8 mg/ Dextrose 258 ml @ 13.332 mls/ hr CONT PRN IV PER PROTOCOL Last administered on 09/25/19at 21:46; Start 09/25/19 at 06:30 Albumin Human 500 ml @ 125 mls/hr 1X ONCE IV Last administered on 09/25/19at 08:10; Start 09/25/19 at 08:15; Stop 09/25/19 at 12:14; Status DC Potassium Acetate 40 meq/Magnesium Sulfate 5 meq/ Multivitamins 10 ml/Chromium/ Copper/Manganese/ Seleni/Zn 1 ml/ Insulin Human Regular 30 unit/ Total Parenteral Nutrition/Amino Acids/Dextrose/ Fat Emulsion Intravenous 1,920 ml @ 80 mls/hr TPN CONT IV Last administered on 09/25/19at 22:23; Start 09/25/19 at 22:00; Stop 09/26/19 at 21:59; Status DC Meropenem 1 gm/ Sodium Chloride 100 ml @ 200 mls/hr Q8HRS IV ; Start 09/25/19 at 14:00; Status Cancel Meropenem 1 gm/ Sodium Chloride 100 ml @ 200 mls/hr Q8HRS IV Last administered on 09/25/19at 11:04; Start 09/25/19 at 10:00; Stop 09/25/19 at 13:00; Status DC Meropenem 1 gm/ Sodium Chloride 100 ml @ 200 mls/hr Q12HR IV Last administered on 09/30/19at 20:35; Start 09/25/19 at 21:00 Sodium Chloride 1,000 ml @ 1,000 mls/hr 1X ONCE IV Last administered on 09/25/19at 11:06; Start 09/25/19 at 10:45; Stop 09/25/19 at 11:44; Status DC Micafungin Sodium 100 mg/Dextrose 100 ml @ 100 mls/hr Q24H IV Last administered on 09/30/19at 10:44; Start 09/25/19 at 11:00 Daptomycin 410 mg/ Sodium Chloride 50 ml @ 100 mls/hr Q24H IV Last administered on 09/27/19at 13:33; Start 09/25/19 at 14:00; Stop 09/28/19 at 08:30; Status DC Midazolam HCl (Versed) 2 mg STK-MED ONCE .ROUTE ; Start 09/25/19 at 14:47; Stop 09/25/19 at 14:48; Status DC Fentanyl Citrate (Fentanyl 2ml Vial) 100 mcg STK-MED ONCE .ROUTE ; Start 09/25/19 at 14:47; Stop 09/25/19 at 14:48; Status DC Flumazenil (Romazicon) 0.5 mg STK-MED ONCE IV ; Start 09/25/19 at 14:48; Stop 09/25/19 at 14:48; Status DC Naloxone HCl (Narcan) 0.4 mg STK-MED ONCE .ROUTE ; Start 09/25/19 at 14:48; Stop 09/25/19 at 14:48; Status DC Lidocaine HCl (Lidocaine 1% 20ml Vial) 20 ml STK-MED ONCE .ROUTE ; Start 09/25/19 at 14:48; Stop 09/25/19 at 14:48; Status DC Midazolam HCl (Versed) 2 mg 1X ONCE IV Last administered on 09/25/19at 15:28; Start 09/25/19 at 15:00; Stop 09/25/19 at 15:01; Status DC Fentanyl Citrate (Fentanyl 2ml Vial) 100 mcg 1X ONCE IV Last administered on at 15:28; Start 09/25/19 at 15:00; Stop 09/25/19 at 15:01; Status DC Lidocaine HCl (Lidocaine 1% 20ml Vial) 20 ml 1X ONCE INJ Last administered on 09/25/19at 15:30; Start 09/25/19 at 15:00; Stop 09/25/19 at 15:01; Status DC Sodium Chloride 1,000 ml @ 100 mls/hr Q10H IV Last administered on 10/01/19at 00:31; Start 09/25/19 at 20:00 Sodium Bicarbonate (Sodium Bicarb Adult 8.4% Syr) 50 meq 1X ONCE IV Last administered on 09/25/19at 21:47; Start 09/25/19 at 22:00; Stop 09/25/19 at 22:01; Status DC Potassium Acetate 40 meq/Magnesium Sulfate 5 meq/ Multivitamins 10 ml/Chromium/ Copper/Manganese/ Seleni/Zn 1 ml/ Insulin Human Regular 30 unit/ Total Parenteral Nutrition/Amino Acids/Dextrose/ Fat Emulsion Intravenous 1,920 ml @ 80 mls/hr TPN CONT IV Last administered on 09/26/19at 22:28; Start 09/26/19 at 22:00; Stop 09/27/19 at 21:59; Status DC Sodium Chloride 500 ml @ 500 mls/hr 1X ONCE IV Last administered on 09/27/19at 06:39; Start 09/27/19 at 06:45; Stop 09/27/19 at 07:44; Status DC Potassium Acetate 40 meq/Magnesium Sulfate 5 meq/ Multivitamins 10 ml/Chromium/ Copper/Manganese/ Seleni/Zn 1 ml/ Insulin Human Regular 30 unit/ Total Paren teral Nutrition/Amino Acids/Dextrose/ Fat Emulsion Intravenous 1,920 ml @ 80 mls/hr TPN CONT IV Last administered on 09/27/19at 22:03; Start 09/27/19 at 22:00; Stop 09/28/19 at 21:59; Status DC Metoprolol Tartrate (Lopressor Vial) 5 mg PRN Q6HRS PRN IVP HYPERTENSION Last administered on 10/01/19at 04:03; Start 09/28/19 at 09:00 Potassium Acetate 40 meq/Magnesium Sulfate 5 meq/ Multivitamins 10 ml/Chromium/ Copper/Manganese/ Seleni/Zn 1 ml/ Insulin Human Regular 30 unit/ Total Parenteral Nutrition/Amino Acids/Dextrose/ Fat Emulsion Intravenous 1,920 ml @ 80 mls/hr TPN CONT IV Last administered on 09/28/19at 21:26; Start 09/28/19 at 22:00; Stop 09/29/19 at 21:59; Status DC Potassium Acetate 40 meq/Magnesium Sulfate 5 meq/ Multivitamins 10 ml/Chromium/ Copper/Manganese/ Seleni/Zn 1 ml/ Insulin Human Regular 30 unit/ Total Parenteral Nutrition/Amino Acids/Dextrose/ Fat Emulsion Intravenous 1,920 ml @ 80 mls/hr TPN CONT IV Last administered on 09/29/19at 23:23; Start 09/29/19 at 22:00; Stop 09/30/19 at 21:59; Status DC Potassium Acetate 40 meq/Magnesium Sulfate 5 meq/ Multivitamins 10 ml/Chromium/ Copper/Manganese/ Seleni/Zn 1 ml/ Insulin Human Regular 30 unit/ Total Parenteral Nutrition/Amino Acids/Dextrose/ Fat Emulsion Intravenous 1,920 ml @ 80 mls/hr TPN CONT IV Last administered on 09/30/19at 21:35; Start 09/30/19 at 22:00; Stop 10/01/19 at 21:59 Furosemide (Lasix) 20 mg 1X ONCE IVP Last administered on 10/01/19at 06:26; Start 10/01/19 at 06:15; Stop 10/01/19 at 06:16; Status DC Methylprednisolone Sodium Succinate (SOLU-Medrol 125MG VIAL) 125 mg 1X ONCE IV Last administered on 10/01/19at 06:26; Start 10/01/19 at 06:15; Stop 10/01/19 at 06:16; Status DC Albuterol/ Ipratropium (Duoneb) 3 ml Q4HRS NEB ; Start 10/01/19 at 08:00 Fentanyl Citrate 30 ml @ 0 mls/hr CONT PRN IV SEE PROTOCOL Last administered on 10/01/19at 06:31; Start 10/01/19 at 06:00 Propofol 100 ml @ 0 mls/hr CONT PRN IV SEE PROTOCOL Last administered on 10/01/19at 06:10; Start 10/01/19 at 06:00 Fentanyl Citrate (Fentanyl 2ml Vial) 25 mcg PRN Q1HR PRN IV SEE COMMENTS; Start 10/01/19 at 06:00 Fentanyl Citrate (Fentanyl 2ml Vial) 50 mcg PRN Q1HR PRN IV SEE COMMENTS; Start 10/01/19 at 06:00 Chlorhexidine Gluconate (Peridex) 15 ml BID MM ; Start 10/01/19 at 09:00 Active Scripts Active Reported Bisoprolol Fumarate 5 Mg Tablet 10 Mg PO DAILY Vitals/I & O Vital Sign - Last 24 Hours 09/30/19 09/30/19 09/30/19 09/30/19 07:42 08:00 08:00 08:26 Temp 98.8 98.7 98.8 98.7 Pulse 126 124 Resp 34 42 B/P (MAP) 138/62 (87) 147/75 Pulse Ox 100 O2 Delivery Trach Collar Tracheal Collar O2 Flow Rate 10.0 10.0 09/30/19 09/30/19 09/30/19 09/30/19 08:41 09:00 09:41 10:00 Temp 98.8 98.9 98.8 98.9 Pulse 125 123 125 Resp 36 32 38 40 B/P (MAP) 158/74 143/66 (91) 153/73 159/79 (105) Pulse Ox 100 98 O2 Delivery Tracheal Collar Tracheal Collar O2 Flow Rate 10.0 10.0 09/30/19 09/30/19 09/30/19 09/30/19 10:41 10:44 11:00 11:14 Temp 99.0 99.0 Pulse 128 125 Resp 36 38 32 42 B/P (MAP) 158/72 160/76 (104) Pulse Ox 98 98 97 O2 Delivery Tracheal Collar Tracheal Collar Tracheal Collar O2 Flow Rate 10.0 10.0 09/30/19 09/30/19 09/30/19 09/30/19 11:32 11:41 12:00 12:00 Temp 99.0 99.0 Pulse 130 109 Resp 38 29 B/P (MAP) 154/76 113/63 (80) Pulse Ox 99 O2 Delivery Trach Collar Tracheal Collar O2 Flow Rate 10.0 10.0 09/30/19 09/30/19 09/30/19 09/30/19 12:11 13:00 14:00 15:00 Temp 98.8 98.8 Pulse 126 112 114 126 Resp 27 30 36 B/P (MAP) 150/69 127/65 (85) 153/80 (104) 157/77 (103) Pulse Ox 98 98 98 O2 Delivery Tracheal Collar Tracheal Collar Tracheal Collar O2 Flow Rate 10.0 10.0 10.0 09/30/19 09/30/19 09/30/19 09/30/19 15:52 16:00 16:00 16:34 Temp 99.0 99.0 Pulse 130 Resp 38 33 B/P (MAP) 157/66 (96) Pulse Ox 98 98 O2 Delivery Trach Collar Tracheal Collar Tracheal Collar O2 Flow Rate 10.0 10.0 09/30/19 09/30/19 09/30/19 09/30/19 16:34 17:00 17:04 18:00 Pulse 122 114 108 Resp 30 30 32 B/P (MAP) 178/81 154/74 (100) 142/68 (92) Pulse Ox 95 95 94 O2 Delivery Tracheal Collar Tracheal Collar Tracheal Collar O2 Flow Rate 10.0 10.0 10.0 09/30/19 09/30/19 09/30/19 09/30/19 19:00 20:00 20:00 20:00 Temp 98.2 98.2 Pulse 111 111 112 Resp 26 31 B/P (MAP) 123/64 (83) 144/76 (98) Pulse Ox 98 99 O2 Delivery Tracheal Collar Trach Collar Tracheal Collar O2 Flow Rate 10.0 10.0 10.0 09/30/19 09/30/19 09/30/19 09/30/19 20:36 21:00 22:00 23:00 Pulse 112 114 117 Resp 34 34 34 B/P (MAP) 135/71 (92) 130/66 (87) 157/81 (106) Pulse Ox 97 97 99 97 O2 Delivery Tracheal Collar Tracheal Collar Tracheal Collar O2 Flow Rate 10.0 10.0 10.0 10.0 10/01/19 10/01/19 10/01/19 10/01/19 00:00 00:06 00:06 00:27 Temp 98.9 98.9 Pulse 122 111 121 Resp 31 B/P (MAP) 171/83 (112) 171/83 Pulse Ox 93 O2 Delivery Tracheal Collar Trach Collar O2 Flow Rate 10.0 10.0 10/01/19 10/01/19 10/01/19 10/01/19 00:57 01:00 02:00 03:00 Pulse 116 116 116 Resp 34 40 40 B/P (MAP) 143/75 (97) 180/91 (120) 177/74 (108) Pulse Ox 93 96 94 93 O2 Delivery Tracheal Collar Tracheal Collar Tracheal Collar O2 Flow Rate 10.0 10.0 10.0 10.0 10/01/19 10/01/19 10/01/19 10/01/19 04:00 04:00 04:00 04:03 Temp 98.3 98.3 Pulse 118 116 131 Resp 32 B/P (MAP) 163/68 (99) 186/80 Pulse Ox 94 O2 Delivery Trach Collar Tracheal Collar O2 Flow Rate 10.0 10.0 10/01/19 10/01/19 10/01/19 10/01/19 05:00 05:20 05:50 06:00 Pulse 130 121 Resp 40 40 B/P (MAP) 165/76 (105) 96/56 (69) Pulse Ox 90 95 88 97 O2 Delivery Tracheal Collar Bag Valve Mask Tracheal Collar Ventilator O2 Flow Rate 10.0 15.0 15.0 10/01/19 10/01/19 10/01/19 06:15 06:31 07:13 Resp 20 Pulse Ox 95 96 96 O2 Delivery Ventilator Ventilator Ventilator Intake and Output 09/30/19 09/30/19 10/01/19 15:00 23:00 07:00 Intake Total 730 ml 1835 ml 2464 ml Output Total 1005 ml 645 ml 810 ml Balance -275 ml 1190 ml 1654 ml Hemodynamically unstable?: No Is patient in severe pain?: No Is NPO status required?: No DAVIN LANDEROS MD Oct 01, 2019 08:02
[2019-10-01] MEDS: IPRATRPIUM/ALBUTEROL 0.5/2.5MG 3 ML NEBU. NEB SCH ×4 (08:06→20:00)
[2019-10-01] MEDS: PANTOPRAZOLE IV PUSH 40 MG VIAL. IVP SCH (08:16)
[2019-10-01] MEDS: MEROPENEM 1 GM in IV NORMAL SALINE 100ML 100 ML IV SCH ×2 (08:17→21:17)
[2019-10-01] MEDS ORDERED: CHLORHEXIDINE 0.12% 15 ML MOUTHWASH. MM SCH (09:00)
[2019-10-01] MEDS: TPN PER PHARMACY MC PRN ×2 (09:31→09:33)
--- NOTE | 2019-10-01 09:34 | NUR ---
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, 8 inches Weight: 80.8 kg Current diet: NPO LABS: Sodium: 146 Potassium: 3.9 Chloride: 112 Calcium: 10.1 Corrected Calcium: 12.42 Magnesium: 1.8 CO2: 24 SCr: 0.7 Glucose: 140-165 Albumin: 1.1 AST: 22 ALT: 16 TPN FORMULA: TPN TYPE: Central Continuous AMINO ACIDS: 75 gm DEXTROSE: 250 gm LIPIDS: 20 gm POTASSIUM ACETATE: 40 mEql MAGNESIUM: 5 mEq INSULIN: 30 units MULTIPLE VITAMIN: 10 ml TRACE ELEMENTS: 1 ml(s) TPN PLAN: Continue same TPN. R: Continue TPN Will monitor electrolytes, glucose, and tolerance to TPN. Raeann Mcdonnell [facility], 10/01/19 0934
--- NOTE | 2019-10-01 09:40 | PDOC ---
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 [employer] 10/01/19 0940: SURGICAL PROGRESS NOTE Subjective family present desat this AM Vital Signs Vital Signs Date Time Temp Pulse Resp B/P (MAP) Pulse Ox O2 Delivery O2 Flow Rate FiO2 10/01/19 09:01 100 Ventilator 10/01/19 09:00 106 20 119/65 (83) 10/01/19 08:00 99.3 99.3 10/01/19 05:50 15.0 I&O Intake and Output 10/01/19 07:00 Intake Total 5029 ml Output Total 2460 ml Balance 2569 ml IV Total 4499 ml Blood Product 280 ml Blood Product IV Normal Saline Flush 250 ml Output Urine Total 1570 ml Drainage Total 890 ml General: Other (lethargic) Abdomen: Soft, Other (dains bloody) Labs Laboratory Tests Test 09/29/19 11:32 09/30/19 06:05 09/30/19 06:18 09/30/19 12:05 Glucose (Fingerstick) 163 mg/dL (70-99) 165 mg/dL (70-99) 158 mg/dL (70-99) White Blood Count 8.7 x10^3/uL (4.0-11.0) Red Blood Count 2.56 x10^6/uL (3.50-5.40) Hemoglobin 7.6 g/dL (12.0-15.5) Hematocrit 22.9 % (36.0-47.0) Mean Corpuscular Volume 90 fL (79-100) Mean Corpuscular Hemoglobin 30 pg (25-35) Mean Corpuscular Hemoglobin Concent 33 g/dL (31-37) Red Cell Distribution Width 16.6 % (11.5-14.5) Platelet Count 349 x10^3/uL (140-400) Neutrophils (%) (Auto) 74 % (31-73) Lymphocytes (%) (Auto) 18 % (24-48) Monocytes (%) (Auto) 6 % (0-9) Eosinophils (%) (Auto) 1 % (0-3) Basophils (%) (Auto) 0 % (0-3) Neutrophils # (Auto) 6.5 x10^3/uL (1.8-7.7) Lymphocytes # (Auto) 1.6 x10^3/uL (1.0-4.8) Monocytes # (Auto) 0.6 x10^3/uL (0.0-1.1) Eosinophils # (Auto) 0.1 x10^3/uL (0.0-0.7) Basophils # (Auto) 0.0 x10^3/uL (0.0-0.2) Sodium Level 146 mmol/L (136-145) Potassium Level 3.9 mmol/L (3.5-5.1) Chloride Level 114 mmol/L (98-107) Carbon Dioxide Level 25 mmol/L (21-32) Anion Gap 7 (6-14) Blood Urea Nitrogen 29 mg/dL (7-20) Creatinine 0.8 mg/dL (0.6-1.0) Estimated GFR (Cockcroft-Gault) 76.2 BUN/Creatinine Ratio 36 (6-20) Glucose Level 176 mg/dL (70-99) Calcium Level 9.8 mg/dL (8.5-10.1) Total Bilirubin 0.4 mg/dL (0.2-1.0) Aspartate Amino Transf (AST/SGOT) 22 U/L (15-37) Alanine Aminotransferase (ALT/SGPT) 16 U/L (14-59) Alkaline Phosphatase 83 U/L (46-116) Total Protein 5.1 g/dL (6.4-8.2) Albumin 1.1 g/dL (3.4-5.0) Albumin/Globulin Ratio 0.3 (1.0-1.7) Test 09/30/19 12:45 09/30/19 17:11 09/30/19 23:56 10/01/19 04:00 White Blood Count 7.0 x10^3/uL (4.0-11.0) 9.4 x10^3/uL (4.0-11.0) Red Blood Count 2.99 x10^6/uL (3.50-5.40) 3.27 x10^6/uL (3.50-5.40) Hemoglobin 8.5 g/dL (12.0-15.5) 9.2 g/dL (12.0-15.5) Hematocrit 25.7 % (36.0-47.0) 27.7 % (36.0-47.0) Mean Corpuscular Volume 86 fL (79-100) 85 fL (79-100) Mean Corpuscular Hemoglobin 29 pg (25-35) 28 pg (25-35) Mean Corpuscular Hemoglobin Concent 33 g/dL (31-37) 33 g/dL (31-37) Red Cell Distribution Width 19.7 % (11.5-14.5) 20.1 % (11.5-14.5) Platelet Count 347 x10^3/uL (140-400) 433 x10^3/uL (140-400) Glucose (Fingerstick) 145 mg/dL (70-99) 140 mg/dL (70-99) Neutrophils (%) (Auto) 76 % (31-73) Lymphocytes (%) (Auto) 17 % (24-48) Monocytes (%) (Auto) 5 % (0-9) Eosinophils (%) (Auto) 2 % (0-3) Basophils (%) (Auto) 0 % (0-3) Neutrophils # (Auto) 7.2 x10^3/uL (1.8-7.7) Lymphocytes # (Auto) 1.6 x10^3/uL (1.0-4.8) Monocytes # (Auto) 0.5 x10^3/uL (0.0-1.1) Eosinophils # (Auto) 0.2 x10^3/uL (0.0-0.7) Basophils # (Auto) 0.0 x10^3/uL (0.0-0.2) Sodium Level 146 mmol/L (136-145) Potassium Level 3.8 mmol/L (3.5-5.1) Chloride Level 112 mmol/L (98-107) Carbon Dioxide Level 24 mmol/L (21-32) Anion Gap 10 (6-14) Blood Urea Nitrogen 25 mg/dL (7-20) Creatinine 0.7 mg/dL (0.6-1.0) Estimated GFR (Cockcroft-Gault) 88.9 Glucose Level 151 mg/dL (70-99) Calcium Level 10.1 mg/dL (8.5-10.1) Test 10/01/19 05:20 O2 Saturation 89 % (92-99) Arterial Blood pH 7.29 (7.35-7.45) Arterial Blood pCO2 at Patient Temp 50 mmHg (35-46) Arterial Blood pO2 at Patient Temp 64 mmHg (75-108) Arterial Blood HCO3 24 mmol/L (21-28) Arterial Blood Base Excess -3 mmol/L (-3-3) Laboratory Tests Test 09/30/19 12:05 09/30/19 12:45 09/30/19 17:11 09/30/19 23:56 Glucose (Fingerstick) 158 mg/dL (70-99) 145 mg/dL (70-99) 140 mg/dL (70-99) White Blood Count 7.0 x10^3/uL (4.0-11.0) Red Blood Count 2.99 x10^6/uL (3.50-5.40) Hemoglobin 8.5 g/dL (12.0-15.5) Hematocrit 25.7 % (36.0-47.0) Mean Corpuscular Volume 86 fL (79-100) Mean Corpuscular Hemoglobin 29 pg (25-35) Mean Corpuscular Hemoglobin Concent 33 g/dL (31-37) Red Cell Distribution Width 19.7 % (11.5-14.5) Platelet Count 347 x10^3/uL (140-400) Test 10/01/19 04:00 10/01/19 05:20 White Blood Count 9.4 x10^3/uL (4.0-11.0) Red Blood Count 3.27 x10^6/uL (3.50-5.40) Hemoglobin 9.2 g/dL (12.0-15.5) Hematocrit 27.7 % (36.0-47.0) Mean Corpuscular Volume 85 fL (79-100) Mean Corpuscular Hemoglobin 28 pg (25-35) Mean Corpuscular Hemoglobin Concent 33 g/dL (31-37) Red Cell Distribution Width 20.1 % (11.5-14.5) Platelet Count 433 x10^3/uL (140-400) Neutrophils (%) (Auto) 76 % (31-73) Lymphocytes (%) (Auto) 17 % (24-48) Monocytes (%) (Auto) 5 % (0-9) Eosinophils (%) (Auto) 2 % (0-3) Basophils (%) (Auto) 0 % (0-3) Neutrophils # (Auto) 7.2 x10^3/uL (1.8-7.7) Lymphocytes # (Auto) 1.6 x10^3/uL (1.0-4.8) Monocytes # (Auto) 0.5 x10^3/uL (0.0-1.1) Eosinophils # (Auto) 0.2 x10^3/uL (0.0-0.7) Basophils # (Auto) 0.0 x10^3/uL (0.0-0.2) Sodium Level 146 mmol/L (136-145) Potassium Level 3.8 mmol/L (3.5-5.1) Chloride Level 112 mmol/L (98-107) Carbon Dioxide Level 24 mmol/L (21-32) Anion Gap 10 (6-14) Blood Urea Nitrogen 25 mg/dL (7-20) Creatinine 0.7 mg/dL (0.6-1.0) Estimated GFR (Cockcroft-Gault) 88.9 Glucose Level 151 mg/dL (70-99) Calcium Level 10.1 mg/dL (8.5-10.1) O2 Saturation 89 % (92-99) Arterial Blood pH 7.29 (7.35-7.45) Arterial Blood pCO2 at Patient Temp 50 mmHg (35-46) Arterial Blood pO2 at Patient Temp 64 mmHg (75-108) Arterial Blood HCO3 24 mmol/L (21-28) Arterial Blood Base Excess -3 mmol/L (-3-3) Problem List Problems Medical Problems: (1) Acute pancreatitis Status: Acute (2) Cholelithiasis Status: Acute Assessment/Plan supportive care Justicifation of Admission Dx: Justifications for Admission: Justification of Admission Dx: Yes CARIN MALDONADO MD 10/01/19 0946: SURGICAL PROGRESS NOTE Assessment/Plan Agree with Julius assessment and plan continue supportive care 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 APRN Oct 01, 2019 09:40 CARIN MALDONADO MD Oct 01, 2019 09:46
--- NOTE | 2019-10-01 09:57 | PDOC ---
PULMONARY PROGRESS NOTES Subjective sat in 80 on tm 100% fio2, i put her back on vent at 6 am, now on peep 5, fi02 75%, large thick secretion, Patient intubated on 07/10 , s/p trach 07/24, transferred back to ICU 09/22 for syncope with collapse developed anemia, blood drainage from RLQ abdomen drain site, and surrounding firmness / developed septic shock 09/24 from abdomen source, required levo 09/24 s/p 3 new drains 09/24 with brown color drainage was place on AVAPS 09/24 post continues to have Dark blood / bloody drainage from KAYLIN drains, 900 cc in past 24 hrs . off pressor Vitals Vital Signs Date Time Temp Pulse Resp B/P (MAP) Pulse Ox O2 Delivery O2 Flow Rate FiO2 10/01/19 09:01 100 Ventilator 10/01/19 09:00 106 20 119/65 (83) 10/01/19 08:00 99.3 99.3 10/01/19 05:50 15.0 Comments ros unable to obtain HEENT: Other (nc at perrl nose clear neck trach site ok no lab no thyromegaly) Lungs: Other (diminshed in bases, Rhonci in LLL) Cardiovascular: S1, S2 Abdomen: Soft, Non-tender, Other (bleeding from Sx. site RLQ and firmness) Extremities: Other (+1 BLE edema) Skin: Warm, Dry Labs Laboratory Tests Test 09/29/19 11:32 09/30/19 06:05 09/30/19 06:18 09/30/19 12:05 Glucose (Fingerstick) 163 mg/dL (70-99) 165 mg/dL (70-99) 158 mg/dL (70-99) White Blood Count 8.7 x10^3/uL (4.0-11.0) Red Blood Count 2.56 x10^6/uL (3.50-5.40) Hemoglobin 7.6 g/dL (12.0-15.5) Hematocrit 22.9 % (36.0-47.0) Mean Corpuscular Volume 90 fL (79-100) Mean Corpuscular Hemoglobin 30 pg (25-35) Mean Corpuscular Hemoglobin Concent 33 g/dL (31-37) Red Cell Distribution Width 16.6 % (11.5-14.5) Platelet Count 349 x10^3/uL (140-400) Neutrophils (%) (Auto) 74 % (31-73) Lymphocytes (%) (Auto) 18 % (24-48) Monocytes (%) (Auto) 6 % (0-9) Eosinophils (%) (Auto) 1 % (0-3) Basophils (%) (Auto) 0 % (0-3) Neutrophils # (Auto) 6.5 x10^3/uL (1.8-7.7) Lymphocytes # (Auto) 1.6 x10^3/uL (1.0-4.8) Monocytes # (Auto) 0.6 x10^3/uL (0.0-1.1) Eosinophils # (Auto) 0.1 x10^3/uL (0.0-0.7) Basophils # (Auto) 0.0 x10^3/uL (0.0-0.2) Sodium Level 146 mmol/L (136-145) Potassium Level 3.9 mmol/L (3.5-5.1) Chloride Level 114 mmol/L (98-107) Carbon Dioxide Level 25 mmol/L (21-32) Anion Gap 7 (6-14) Blood Urea Nitrogen 29 mg/dL (7-20) Creatinine 0.8 mg/dL (0.6-1.0) Estimated GFR (Cockcroft-Gault) 76.2 BUN/Creatinine Ratio 36 (6-20) Glucose Level 176 mg/dL (70-99) Calcium Level 9.8 mg/dL (8.5-10.1) Total Bilirubin 0.4 mg/dL (0.2-1.0) Aspartate Amino Transf (AST/SGOT) 22 U/L (15-37) Alanine Aminotransferase (ALT/SGPT) 16 U/L (14-59) Alkaline Phosphatase 83 U/L (46-116) Total Protein 5.1 g/dL (6.4-8.2) Albumin 1.1 g/dL (3.4-5.0) Albumin/Globulin Ratio 0.3 (1.0-1.7) Test 09/30/19 12:45 09/30/19 17:11 09/30/19 23:56 10/01/19 04:00 White Blood Count 7.0 x10^3/uL (4.0-11.0) 9.4 x10^3/uL (4.0-11.0) Red Blood Count 2.99 x10^6/uL (3.50-5.40) 3.27 x10^6/uL (3.50-5.40) Hemoglobin 8.5 g/dL (12.0-15.5) 9.2 g/dL (12.0-15.5) Hematocrit 25.7 % (36.0-47.0) 27.7 % (36.0-47.0) Mean Corpuscular Volume 86 fL (79-100) 85 fL (79-100) Mean Corpuscular Hemoglobin 29 pg (25-35) 28 pg (25-35) Mean Corpuscular Hemoglobin Concent 33 g/dL (31-37) 33 g/dL (31-37) Red Cell Distribution Width 19.7 % (11.5-14.5) 20.1 % (11.5-14.5) Platelet Count 347 x10^3/uL (140-400) 433 x10^3/uL (140-400) Glucose (Fingerstick) 145 mg/dL (70-99) 140 mg/dL (70-99) Neutrophils (%) (Auto) 76 % (31-73) Lymphocytes (%) (Auto) 17 % (24-48) Monocytes (%) (Auto) 5 % (0-9) Eosinophils (%) (Auto) 2 % (0-3) Basophils (%) (Auto) 0 % (0-3) Neutrophils # (Auto) 7.2 x10^3/uL (1.8-7.7) Lymphocytes # (Auto) 1.6 x10^3/uL (1.0-4.8) Monocytes # (Auto) 0.5 x10^3/uL (0.0-1.1) Eosinophils # (Auto) 0.2 x10^3/uL (0.0-0.7) Basophils # (Auto) 0.0 x10^3/uL (0.0-0.2) Sodium Level 146 mmol/L (136-145) Potassium Level 3.8 mmol/L (3.5-5.1) Chloride Level 112 mmol/L (98-107) Carbon Dioxide Level 24 mmol/L (21-32) Anion Gap 10 (6-14) Blood Urea Nitrogen 25 mg/dL (7-20) Creatinine 0.7 mg/dL (0.6-1.0) Estimated GFR (Cockcroft-Gault) 88.9 Glucose Level 151 mg/dL (70-99) Calcium Level 10.1 mg/dL (8.5-10.1) Test 10/01/19 05:20 O2 Saturation 89 % (92-99) Arterial Blood pH 7.29 (7.35-7.45) Arterial Blood pCO2 at Patient Temp 50 mmHg (35-46) Arterial Blood pO2 at Patient Temp 64 mmHg (75-108) Arterial Blood HCO3 24 mmol/L (21-28) Arterial Blood Base Excess -3 mmol/L (-3-3) Laboratory Tests Test 09/30/19 12:05 09/30/19 12:45 09/30/19 17:11 09/30/19 23:56 Glucose (Fingerstick) 158 mg/dL (70-99) 145 mg/dL (70-99) 140 mg/dL (70-99) White Blood Count 7.0 x10^3/uL (4.0-11.0) Red Blood Count 2.99 x10^6/uL (3.50-5.40) Hemoglobin 8.5 g/dL (12.0-15.5) Hematocrit 25.7 % (36.0-47.0) Mean Corpuscular Volume 86 fL (79-100) Mean Corpuscular Hemoglobin 29 pg (25-35) Mean Corpuscular Hemoglobin Concent 33 g/dL (31-37) Red Cell Distribution Width 19.7 % (11.5-14.5) Platelet Count 347 x10^3/uL (140-400) Test 10/01/19 04:00 10/01/19 05:20 White Blood Count 9.4 x10^3/uL (4.0-11.0) Red Blood Count 3.27 x10^6/uL (3.50-5.40) Hemoglobin 9.2 g/dL (12.0-15.5) Hematocrit 27.7 % (36.0-47.0) Mean Corpuscular Volume 85 fL (79-100) Mean Corpuscular Hemoglobin 28 pg (25-35) Mean Corpuscular Hemoglobin Concent 33 g/dL (31-37) Red Cell Distribution Width 20.1 % (11.5-14.5) Platelet Count 433 x10^3/uL (140-400) Neutrophils (%) (Auto) 76 % (31-73) Lymphocytes (%) (Auto) 17 % (24-48) Monocytes (%) (Auto) 5 % (0-9) Eosinophils (%) (Auto) 2 % (0-3) Basophils (%) (Auto) 0 % (0-3) Neutrophils # (Auto) 7.2 x10^3/uL (1.8-7.7) Lymphocytes # (Auto) 1.6 x10^3/uL (1.0-4.8) Monocytes # (Auto) 0.5 x10^3/uL (0.0-1.1) Eosinophils # (Auto) 0.2 x10^3/uL (0.0-0.7) Basophils # (Auto) 0.0 x10^3/uL (0.0-0.2) Sodium Level 146 mmol/L (136-145) Potassium Level 3.8 mmol/L (3.5-5.1) Chloride Level 112 mmol/L (98-107) Carbon Dioxide Level 24 mmol/L (21-32) Anion Gap 10 (6-14) Blood Urea Nitrogen 25 mg/dL (7-20) Creatinine 0.7 mg/dL (0.6-1.0) Estimated GFR (Cockcroft-Gault) 88.9 Glucose Level 151 mg/dL (70-99) Calcium Level 10.1 mg/dL (8.5-10.1) O2 Saturation 89 % (92-99) Arterial Blood pH 7.29 (7.35-7.45) Arterial Blood pCO2 at Patient Temp 50 mmHg (35-46) Arterial Blood pO2 at Patient Temp 64 mmHg (75-108) Arterial Blood HCO3 24 mmol/L (21-28) Arterial Blood Base Excess -3 mmol/L (-3-3) Medications Active Scripts Medications Dose Route/Sig Max Daily Dose Days Date Category Bisoprolol Fumarate 5 Mg Tablet 10 Mg PO DAILY 07/04/19 Reported Comments CXR 10/01/2019 * Complete opacification of the left chest which is increased from prior and could be from air space consolidation and pleural effusion. * Low lung volume on the right with elevation of the right hemidiaphragm apparent. This apparent elevation of the right hemidiaphragm could be secondary to consolidation or effusion at the right chest base. ct abdomen /pelvis 09/23 1. Removal of the percutaneous pigtail drainage catheters since the prior exam. Sequela of pancreatitis with extensive pseudocysts again demonstrated, the right-sided collections are slightly larger since the prior exam, the left-sided collections are stable. See above. 2. Moderate to large left pleural effusion with atelectasis and collapse of most of the left lower lobe, stable. Small right pleural effusion is stable. 3. Gallstone. Impression . IMPRESSION: 1. Acute hypoxemic respiratory failure secondary to ARDS status post trach, developed anemia 09/24, blood drainage from RLQ abdomen drain site, and surrounding firmness / developed septic shock 09/24 from abdomen source, required levo /7 s/p 3 new drains 09/24 with brown color drainage, now on vent, Bloody drainage again from KAYLIN drains / 900 cc in last 24 hr 2. Gallstone pancreatitis, now with ongoing bleeding from prior drain. Anemic. s/p Tx multiple units over several days 3. septic shock/sepsis, recurrent 09/24, source abdomen. , off levo now, 4. Acute kidney injury-, Off HD--renal function decling. suspect JUANA on CKD due to hypotension , improved now 5. Acute gallstone pancreatitis. 6. Hypoalbuminemia. 7. Moderate persistent effusions, s/p left thora 08/29, reaccumulation of left effusion. O2 requirement not changed. 8. Fever- ,hypotension. suspect recurrent sepsis/ likely pancreatic source. Per ID, per surgery-- 9. Chronic anemia-- ongoing / s/p PRBC 10. Covid 19 testing negative 11. Moderate to large ascites-S/P paracentisis 12.S/P paracentisis with 4 liters removed on 08/03/19 13. S/P IR drain placement on 08/26/2019, removal 14. Depression/Anxiety 1 Plan . 1. back on vent eariler this am, cxr reviewed, left effusion/infilt/atelectasis, suspect most of it is effusion, BD and mucumyst added, will do cxr in am, may need thoracentesis, no need for bronch, abg reviewed, titrate fio2 to keep sat 94% 2. Follow all cultures/ PSA from pelvic drains. Abx per ID 3. Follow surgery recs-- Acute pancreatitis with persistent necrosis ---- 08/14 status post KAYLIN drain placement + C paropsilosis; 08/23 + yeast & high amylase; s/p additional drains on 08/25, removal of drains and now increase pseudocyst and increase fluid collection. likely infected fluid/ sepsis. continues to have bloody drainage thru drains . 90 cc in last 24 hrs .Initiated BS abx.follow surgery rec, planning surgical intervention next few weeks 4. Follow ID recs for ABX---- 5. Follow nephrology recs ----- 6. Continue TPN 7. monitor HGB, 4 units since 09/23--monitor HGB transfuse if less than 8.5 8. hold off on thoracentesis . effusion small to moderate , monitor for now 10. s/p thoracentesis, 08/29, 3 litres removed 11. Pt remains critically ill from severe necrotic pancreatis. Even with surgery prognosis grim. Surgery informed family. DVT/GI PPX: protonix--- holding lovenox 2/2 anemia PT/OT D/W RN, rt and dr beckford, mother and daughter critically ill cc time 30 min no overlap TEN WHITFIELD MD Oct 01, 2019 09:57
[2019-10-01 09:59] LABS: BASE EXCESS ABG -2 mmol/L (-3-3); FIO2 ABG 75; HCO3 ABG 23 mmol/L (21-28); PCO2 ABG 38 mmHg (35-46); PO2 ABG 177 mmHg (75-108); SAT O2 ABG 99 % (92-99)
[2019-10-01] MEDS: MICAFUNGIN 100 MG in IV DEXTROSE 5% 100ML 100 ML IV SCH (11:16)
[2019-10-01 15:22] LABS: HEMATOCRIT 23.5 % (36.0-47.0); HEMOGLOBIN 8.1 g/dL (12.0-15.5); RED BLOOD COUNT 2.78 x10^6/uL (3.50-5.40); RED CELL DISTRIBUTION WIDTH 19.1 % (11.5-14.5); WHITE BLOOD COUNT 9.3 x10^3/uL (4.0-11.0)
[2019-10-01] MEDS ORDERED: MAGNESIUM SULFATE 4GM 100 ML IV ONE (15:45)
[2019-10-01 20:19] LABS: RED BLOOD COUNT 3.04 x10^6/uL (3.50-5.40); RED CELL DISTRIBUTION WIDTH 18.7 % (11.5-14.5); WHITE BLOOD COUNT 8.4 x10^3/uL (4.0-11.0)
[2019-10-01] MEDS: ACETYLCYSTEINE 20% for RESP TX 600 MG/3 ML. NEB SCH (21:17)
[2019-10-01] MEDS ORDERED: [UNRECOGNIZED DRUG - OTHER] IV SCH ×8 (22:00)
[2019-10-01] MEDS ORDERED: TOTAL PARENTERAL NUTRITION IV SCH ×8 (22:00)
[2019-10-01] MEDS ORDERED: DEXTROSE 70% IV SCH ×8 (22:00)
[2019-10-01] MEDS ORDERED: AMINO ACID IV SCH ×8 (22:00)
[2019-10-02] VITALS (24 sets, daily range): BP systolic 93–160; BP diastolic 58–98
[2019-10-02] MEDS: IPRATRPIUM/ALBUTEROL 0.5/2.5MG 3 ML NEBU. NEB SCH ×6 (00:40→20:18)
[2019-10-02] MEDS: INSULIN LISPRO 300 UNITS/3 ML VIAL. SQ SCH ×4 (00:42→17:53)
[2019-10-02] MEDS: ONDANSETRON PF 4 MG/2 ML VIAL. IV PRN ×3 (01:35→16:02)
[2019-10-02] MEDS: IV NORMAL SALINE 1000ML BAG 1,000 ML IV SCH ×2 (05:18→17:45)
[2019-10-02 05:36] LABS: BASO % 0 % (0-3); EOS % 0 % (0-3); HEMOGLOBIN 8.6 g/dL (12.0-15.5); LYMPH # 1.3 x10^3/uL (1.0-4.8); LYMPH % 17 % (24-48); MEAN CORPUSCULAR HEMOGLOBIN 29 pg (25-35); MEAN CORPUSCULAR HGB CONC 34 g/dL (31-37); MEAN CORPUSCULAR VOLUME 85 fL (79-100); MONO # 0.3 x10^3/uL (0.0-1.1); MONO % 4 % (0-9); NEUT # 5.9 x10^3/uL (1.8-7.7); NEUT % 79 % (31-73); PLATELET COUNT 382 x10^3/uL (140-400); RED BLOOD COUNT 2.95 x10^6/uL (3.50-5.40); WHITE BLOOD COUNT 7.5 x10^3/uL (4.0-11.0)
[2019-10-02 05:56] LABS: MAGNESIUM 2.5 mg/dL (1.8-2.4); PHOSPHORUS 3.7 mg/dL (2.6-4.7)
[2019-10-02 05:59] LABS: ALBUMIN/GLOBULIN RATIO 0.3 (1.0-1.7); CALCIUM 9.2 mg/dL (8.5-10.1); CREATININE 0.8 mg/dL (0.6-1.0); GFR 76.2; POTASSIUM 3.8 mmol/L (3.5-5.1); TOTAL BILIRUBIN 0.4 mg/dL (0.2-1.0); TOTAL PROTEIN 4.6 g/dL (6.4-8.2)
--- NOTE | 2019-10-02 06:08 | NUR ---
Nursing Note: Pt only measured output on KAYLIN drains were from the right side despite flushing every drain 3 times this shift. Left KAYLIN site oozed considerable amount, early in shift, changed dressing. Pt comfortable on vent tonight able to wake up and follow commands easily.
--- NOTE | 2019-10-02 06:15 | PDOC ---
Infectious Disease Note Subjective Subjective Patient lethargic, weak back on vent Small vol vomit Continues to have blood stained drainage from drains no fevers last 24 hours Vital Sign Vital Signs Vital Signs Date Time Temp Pulse Resp B/P (MAP) Pulse Ox O2 Delivery O2 Flow Rate FiO2 10/02/19 05:05 99 Ventilator 10/02/19 05:00 66 20 111/59 (76) 10/02/19 04:00 97.5 97.5 Physical Exam PHYSICAL EXAM GENERAL: Lethargic, opens eyes transiently HEENT: NGT in place. Oral mucosa dry NECK: Tracheostomy LUNGS: Diminished aeration bases, no accessory muscle use HEART: S1, S2, tachy, regular ABDOMEN: Mild distention, bowel sounds present, soft, grimaces to palpation Right lateral side drainage bag, 3 drains with bloodstained drainage : Lind ( 09/24) EXTREMITIES: Trace edema .no cyanosis SKIN: no signs of gen rash ASSEMBLER BODY: Lethargic very weak LUE-PICC (09/15) without signs of complications - art line without complications Labs Lab Laboratory Tests Test 10/01/19 07:50 10/01/19 11:24 10/01/19 15:08 10/01/19 18:19 O2 Saturation 99 % (92-99) Arterial Blood pH 7.39 (7.35-7.45) Arterial Blood pCO2 at Patient Temp 38 mmHg (35-46) Arterial Blood pO2 at Patient Temp 177 mmHg (75-108) Arterial Blood HCO3 23 mmol/L (21-28) Arterial Blood Base Excess -2 mmol/L (-3-3) FiO2 75 Glucose (Fingerstick) 187 mg/dL (70-99) 220 mg/dL (70-99) White Blood Count 9.3 x10^3/uL (4.0-11.0) Red Blood Count 2.78 x10^6/uL (3.50-5.40) Hemoglobin 8.1 g/dL (12.0-15.5) Hematocrit 23.5 % (36.0-47.0) Mean Corpuscular Volume 85 fL (79-100) Mean Corpuscular Hemoglobin 29 pg (25-35) Mean Corpuscular Hemoglobin Concent 34 g/dL (31-37) Red Cell Distribution Width 19.1 % (11.5-14.5) Platelet Count 380 x10^3/uL (140-400) Magnesium Level 1.5 mg/dL (1.8-2.4) Test 10/01/19 20:10 10/02/19 00:38 10/02/19 05:30 White Blood Count 8.4 x10^3/uL (4.0-11.0) 7.5 x10^3/uL (4.0-11.0) Red Blood Count 3.04 x10^6/uL (3.50-5.40) 2.95 x10^6/uL (3.50-5.40) Hemoglobin 9.0 g/dL (12.0-15.5) 8.6 g/dL (12.0-15.5) Hematocrit 26.0 % (36.0-47.0) 25.0 % (36.0-47.0) Mean Corpuscular Volume 86 fL (79-100) 85 fL (79-100) Mean Corpuscular Hemoglobin 30 pg (25-35) 29 pg (25-35) Mean Corpuscular Hemoglobin Concent 35 g/dL (31-37) 34 g/dL (31-37) Red Cell Distribution Width 18.7 % (11.5-14.5) 18.0 % (11.5-14.5) Platelet Count 388 x10^3/uL (140-400) 382 x10^3/uL (140-400) Glucose (Fingerstick) 188 mg/dL (70-99) Neutrophils (%) (Auto) 79 % (31-73) Lymphocytes (%) (Auto) 17 % (24-48) Monocytes (%) (Auto) 4 % (0-9) Eosinophils (%) (Auto) 0 % (0-3) Basophils (%) (Auto) 0 % (0-3) Neutrophils # (Auto) 5.9 x10^3/uL (1.8-7.7) Lymphocytes # (Auto) 1.3 x10^3/uL (1.0-4.8) Monocytes # (Auto) 0.3 x10^3/uL (0.0-1.1) Eosinophils # (Auto) 0.0 x10^3/uL (0.0-0.7) Basophils # (Auto) 0.0 x10^3/uL (0.0-0.2) Sodium Level 145 mmol/L (136-145) Potassium Level 3.8 mmol/L (3.5-5.1) Chloride Level 113 mmol/L (98-107) Carbon Dioxide Level 24 mmol/L (21-32) Anion Gap 8 (6-14) Blood Urea Nitrogen 36 mg/dL (7-20) Creatinine 0.8 mg/dL (0.6-1.0) Estimated GFR (Cockcroft-Gault) 76.2 BUN/Creatinine Ratio 45 (6-20) Glucose Level 227 mg/dL (70-99) Calcium Level 9.2 mg/dL (8.5-10.1) Phosphorus Level 3.7 mg/dL (2.6-4.7) Magnesium Level 2.5 mg/dL (1.8-2.4) Total Bilirubin 0.4 mg/dL (0.2-1.0) Aspartate Amino Transf (AST/SGOT) 31 U/L (15-37) Alanine Aminotransferase (ALT/SGPT) 29 U/L (14-59) Alkaline Phosphatase 82 U/L (46-116) Total Protein 4.6 g/dL (6.4-8.2) Albumin 1.0 g/dL (3.4-5.0) Albumin/Globulin Ratio 0.3 (1.0-1.7) Micro 6/7 GRAM STAIN Final Final GRAM NEGATIVE RODS:MODERATE SQUAMOUS EPI CELL:NOT APPLICABLE PMN (WBCs):RARE YEAST:MODERATE Unless otherwise specified, Testing Performed by: [address] [address] For Inquires, the Physician may contact the Microbiology department at [phone] ANAEROBIC-AEROBIC CULTURE Preliminary Preliminary MANY GRAM NEGATIVE RODS on 09/27/19 at 6168 FINAL ID= [[email or web address]] PSEUDOMONAS AERUGINOSA ANTIMICROBIAL SUSCEPTIBILITY Preliminary Comment NEG ALEXANDRA 56 PSEUDOMONAS AERUGINOSA ANTIBIOTIC RESULT INTERPRETATION AMIKACIN <=16 S AZTREONAM >16 R CEFTAZIDIME >16 R CIPROFLOXACIN <=0.25 S CEFEPIME 16 I CEFTAZIDIME/AVIBACTAM <=4 S GENTAMICIN <=2 S CONTINUED ON NEXT PAGE -------- ---- RUN DATE: 09/29/19 [facility] *LIVE* PAGE 2 RUN TIME: 1016 Specimen Inquiry SPEC: [id number] PATIENT: SCOTT CUELLAR [id number] (Continued) Procedure Result ANTIMICROBIAL SUSCEPTIBILITY Preliminary (continued) LEVOFLOXACIN <=0.5 S MEROPENEM <=1 S PIPERACILLIN/TAZOBACTAM 64 S TOBRAMYCIN <=2 S Unless otherwise specified, Testing Performed by: [facility] [address] [place] [address] For Inquires, the Physician may contact the Microbiology department at [phone] CT Scan 09/23 IMPRESSION: 1. Removal of the percutaneous pigtail drainage catheters since the prior exam. Sequela of pancreatitis with extensive pseudocysts again demonstrated, the right-sided collections are slightly larger since the prior exam, the left-sided collections are stable. See above. 2. Moderate to large left pleural effusion with atelectasis and collapse of most of the left lower lobe, stable. Small right pleural effusion is stable. 3. Gallstone. Objective Assessment Patient with prolonged hospitalization Multiple medical problems Multiple surgical procedures CXR with Left lung white-out 09/30 ? effusion Acute hypoxic resp failure on 40 % and 5 PEEP Fever improving Acute pancreatitis with persistent necrosis CT a/p 07/27 Increased ascites. 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 Sequela of pancreatitis with extensive pseudocysts again demonstrated, the right-sided collections are slightly larger since the prior exam, the left-sided collections are stable. 09/24 fluid cult PSAE (MDRO),yeast moderate s/p drain times three Cholelithiasis with thickening of the gallbladder wall. Leucocytosis - better JUANA,Hyperkalemia, Metabolic acidosis off dialysis Acute hypoxic resp failure ,bilateral pleural effusion and atelectasis hypocalcemia Prediabetes HTN s/p trach S/p thoracenteis 08/29 Plan Plan of Care Await Pulm F/u - may need bronch - has increased secretions per nursing. ? possible effusion - currently AF/WBC nml Continue meropenem, has MDRP PSAE September 24 cont micafungin September 24 Follow-up cultures fluid for yeast Monitor a.m. labs General surgery following Monitor drain output Maintain aspiration precaution Supportive care Prognosis poor Critically ill D/w nursing WILLY BARAKAT MD Oct 02, 2019 06:15
--- NOTE | 2019-10-02 08:10 | RAD ---
EXAM: PORTABLE CHEST 1V INDICATION: Reason: Pleural Effusions, Resp Failure / Spl. Instructions: / History: . TECHNIQUE: Single view COMPARISON: 10/01/2019 chest x-ray FINDINGS: Stable tracheostomy tube and left PICC line with tip near the cavoatrial junction. Enteric tube remains present as well, passing below the diaphragms. The heart size is normal. The great vessels appear unremarkable. There is no hilar or mediastinal mass. Lungs show pulmonary vascular congestion and bibasilar opacities with improved aeration of the right middle lobe. Bilateral pleural effusions remain present, apparently decreased in size on the left . No pneumothorax. There are no significant osseous abnormalities. IMPRESSION: Bilateral pleural effusions and associated atelectasis with apparent slight decrease in left pleural effusion and improving right middle lobe atelectasis/consolidation. Electronically signed by: Charan Dove MD (10/02/2019 8:07 AM) [id number]
[2019-10-02] MEDS: ACETYLCYSTEINE 20% for RESP TX 600 MG/3 ML. NEB SCH ×2 (08:23→21:00)
[2019-10-02 08:36] LABS: BASE EXCESS ABG -1 mmol/L (-3-3); HCO3 ABG 23 mmol/L (21-28); PCO2 ABG 34 mmHg (35-46); PO2 ABG 146 mmHg (75-108); SAT O2 ABG 98 % (92-99)
[2019-10-02] MEDS: MEROPENEM 1 GM in IV NORMAL SALINE 100ML 100 ML IV SCH ×2 (08:58→21:32)
[2019-10-02] MEDS: PANTOPRAZOLE IV PUSH 40 MG VIAL. IVP SCH (08:58)
--- NOTE | 2019-10-02 09:14 | PDOC ---
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 [employer] 10/02/19 0914: SURGICAL PROGRESS NOTE Subjective now on vent --high secretions right drain with significant output Vital Signs Vital Signs Date Time Temp Pulse Resp B/P (MAP) Pulse Ox O2 Delivery O2 Flow Rate FiO2 10/02/19 09:00 69 20 119/60 (79) 99 Ventilator 10/02/19 08:00 97.6 97.6 I&O Intake and Output 10/02/19 07:00 Intake Total 3419 ml Output Total 2674 ml Balance 745 ml IV Total 3419 ml Output Urine Total 1169 ml Drainage Total 1505 ml General: No acute distress HEENT: Other (trach in place) Abdomen: Other (drains in place) Labs Laboratory Tests Test 09/30/19 12:05 09/30/19 12:45 09/30/19 17:11 09/30/19 23:56 Glucose (Fingerstick) 158 mg/dL (70-99) 145 mg/dL (70-99) 140 mg/dL (70-99) White Blood Count 7.0 x10^3/uL (4.0-11.0) Red Blood Count 2.99 x10^6/uL (3.50-5.40) Hemoglobin 8.5 g/dL (12.0-15.5) Hematocrit 25.7 % (36.0-47.0) Mean Corpuscular Volume 86 fL (79-100) Mean Corpuscular Hemoglobin 29 pg (25-35) Mean Corpuscular Hemoglobin Concent 33 g/dL (31-37) Red Cell Distribution Width 19.7 % (11.5-14.5) Platelet Count 347 x10^3/uL (140-400) Test 10/01/19 04:00 10/01/19 05:20 10/01/19 07:50 10/01/19 11:24 White Blood Count 9.4 x10^3/uL (4.0-11.0) Red Blood Count 3.27 x10^6/uL (3.50-5.40) Hemoglobin 9.2 g/dL (12.0-15.5) Hematocrit 27.7 % (36.0-47.0) Mean Corpuscular Volume 85 fL (79-100) Mean Corpuscular Hemoglobin 28 pg (25-35) Mean Corpuscular Hemoglobin Concent 33 g/dL (31-37) Red Cell Distribution Width 20.1 % (11.5-14.5) Platelet Count 433 x10^3/uL (140-400) Neutrophils (%) (Auto) 76 % (31-73) Lymphocytes (%) (Auto) 17 % (24-48) Monocytes (%) (Auto) 5 % (0-9) Eosinophils (%) (Auto) 2 % (0-3) Basophils (%) (Auto) 0 % (0-3) Neutrophils # (Auto) 7.2 x10^3/uL (1.8-7.7) Lymphocytes # (Auto) 1.6 x10^3/uL (1.0-4.8) Monocytes # (Auto) 0.5 x10^3/uL (0.0-1.1) Eosinophils # (Auto) 0.2 x10^3/uL (0.0-0.7) Basophils # (Auto) 0.0 x10^3/uL (0.0-0.2) Sodium Level 146 mmol/L (136-145) Potassium Level 3.8 mmol/L (3.5-5.1) Chloride Level 112 mmol/L (98-107) Carbon Dioxide Level 24 mmol/L (21-32) Anion Gap 10 (6-14) Blood Urea Nitrogen 25 mg/dL (7-20) Creatinine 0.7 mg/dL (0.6-1.0) Estimated GFR (Cockcroft-Gault) 88.9 Glucose Level 151 mg/dL (70-99) Calcium Level 10.1 mg/dL (8.5-10.1) O2 Saturation 89 % (92-99) 99 % (92-99) Arterial Blood pH 7.29 (7.35-7.45) 7.39 (7.35-7.45) Arterial Blood pCO2 at Patient Temp 50 mmHg (35-46) 38 mmHg (35-46) Arterial Blood pO2 at Patient Temp 64 mmHg (75-108) 177 mmHg (75-108) Arterial Blood HCO3 24 mmol/L (21-28) 23 mmol/L (21-28) Arterial Blood Base Excess -3 mmol/L (-3-3) -2 mmol/L (-3-3) FiO2 75 Glucose (Fingerstick) 187 mg/dL (70-99) Test 10/01/19 15:08 10/01/19 18:19 10/01/19 20:10 10/02/19 00:38 White Blood Count 9.3 x10^3/uL (4.0-11.0) 8.4 x10^3/uL (4.0-11.0) Red Blood Count 2.78 x10^6/uL (3.50-5.40) 3.04 x10^6/uL (3.50-5.40) Hemoglobin 8.1 g/dL (12.0-15.5) 9.0 g/dL (12.0-15.5) Hematocrit 23.5 % (36.0-47.0) 26.0 % (36.0-47.0) Mean Corpuscular Volume 85 fL (79-100) 86 fL (79-100) Mean Corpuscular Hemoglobin 29 pg (25-35) 30 pg (25-35) Mean Corpuscular Hemoglobin Concent 34 g/dL (31-37) 35 g/dL (31-37) Red Cell Distribution Width 19.1 % (11.5-14.5) 18.7 % (11.5-14.5) Platelet Count 380 x10^3/uL (140-400) 388 x10^3/uL (140-400) Magnesium Level 1.5 mg/dL (1.8-2.4) Glucose (Fingerstick) 220 mg/dL (70-99) 188 mg/dL (70-99) Test 10/02/19 05:30 White Blood Count 7.5 x10^3/uL (4.0-11.0) Red Blood Count 2.95 x10^6/uL (3.50-5.40) Hemoglobin 8.6 g/dL (12.0-15.5) Hematocrit 25.0 % (36.0-47.0) Mean Corpuscular Volume 85 fL (79-100) Mean Corpuscular Hemoglobin 29 pg (25-35) Mean Corpuscular Hemoglobin Concent 34 g/dL (31-37) Red Cell Distribution Width 18.0 % (11.5-14.5) Platelet Count 382 x10^3/uL (140-400) Neutrophils (%) (Auto) 79 % (31-73) Lymphocytes (%) (Auto) 17 % (24-48) Monocytes (%) (Auto) 4 % (0-9) Eosinophils (%) (Auto) 0 % (0-3) Basophils (%) (Auto) 0 % (0-3) Neutrophils # (Auto) 5.9 x10^3/uL (1.8-7.7) Lymphocytes # (Auto) 1.3 x10^3/uL (1.0-4.8) Monocytes # (Auto) 0.3 x10^3/uL (0.0-1.1) Eosinophils # (Auto) 0.0 x10^3/uL (0.0-0.7) Basophils # (Auto) 0.0 x10^3/uL (0.0-0.2) Sodium Level 145 mmol/L (136-145) Potassium Level 3.8 mmol/L (3.5-5.1) Chloride Level 113 mmol/L (98-107) Carbon Dioxide Level 24 mmol/L (21-32) Anion Gap 8 (6-14) Blood Urea Nitrogen 36 mg/dL (7-20) Creatinine 0.8 mg/dL (0.6-1.0) Estimated GFR (Cockcroft-Gault) 76.2 BUN/Creatinine Ratio 45 (6-20) Glucose Level 227 mg/dL (70-99) Calcium Level 9.2 mg/dL (8.5-10.1) Phosphorus Level 3.7 mg/dL (2.6-4.7) Magnesium Level 2.5 mg/dL (1.8-2.4) Total Bilirubin 0.4 mg/dL (0.2-1.0) Aspartate Amino Transf (AST/SGOT) 31 U/L (15-37) Alanine Aminotransferase (ALT/SGPT) 29 U/L (14-59) Alkaline Phosphatase 82 U/L (46-116) Total Protein 4.6 g/dL (6.4-8.2) Albumin 1.0 g/dL (3.4-5.0) Albumin/Globulin Ratio 0.3 (1.0-1.7) Laboratory Tests Test 10/01/19 11:24 10/01/19 15:08 10/01/19 18:19 10/01/19 20:10 Glucose (Fingerstick) 187 mg/dL (70-99) 220 mg/dL (70-99) White Blood Count 9.3 x10^3/uL (4.0-11.0) 8.4 x10^3/uL (4.0-11.0) Red Blood Count 2.78 x10^6/uL (3.50-5.40) 3.04 x10^6/uL (3.50-5.40) Hemoglobin 8.1 g/dL (12.0-15.5) 9.0 g/dL (12.0-15.5) Hematocrit 23.5 % (36.0-47.0) 26.0 % (36.0-47.0) Mean Corpuscular Volume 85 fL (79-100) 86 fL (79-100) Mean Corpuscular Hemoglobin 29 pg (25-35) 30 pg (25-35) Mean Corpuscular Hemoglobin Concent 34 g/dL (31-37) 35 g/dL (31-37) Red Cell Distribution Width 19.1 % (11.5-14.5) 18.7 % (11.5-14.5) Platelet Count 380 x10^3/uL (140-400) 388 x10^3/uL (140-400) Magnesium Level 1.5 mg/dL (1.8-2.4) Test 10/02/19 00:38 10/02/19 05:30 Glucose (Fingerstick) 188 mg/dL (70-99) White Blood Count 7.5 x10^3/uL (4.0-11.0) Red Blood Count 2.95 x10^6/uL (3.50-5.40) Hemoglobin 8.6 g/dL (12.0-15.5) Hematocrit 25.0 % (36.0-47.0) Mean Corpuscular Volume 85 fL (79-100) Mean Corpuscular Hemoglobin 29 pg (25-35) Mean Corpuscular Hemoglobin Concent 34 g/dL (31-37) Red Cell Distribution Width 18.0 % (11.5-14.5) Platelet Count 382 x10^3/uL (140-400) Neutrophils (%) (Auto) 79 % (31-73) Lymphocytes (%) (Auto) 17 % (24-48) Monocytes (%) (Auto) 4 % (0-9) Eosinophils (%) (Auto) 0 % (0-3) Basophils (%) (Auto) 0 % (0-3) Neutrophils # (Auto) 5.9 x10^3/uL (1.8-7.7) Lymphocytes # (Auto) 1.3 x10^3/uL (1.0-4.8) Monocytes # (Auto) 0.3 x10^3/uL (0.0-1.1) Eosinophils # (Auto) 0.0 x10^3/uL (0.0-0.7) Basophils # (Auto) 0.0 x10^3/uL (0.0-0.2) Sodium Level 145 mmol/L (136-145) Potassium Level 3.8 mmol/L (3.5-5.1) Chloride Level 113 mmol/L (98-107) Carbon Dioxide Level 24 mmol/L (21-32) Anion Gap 8 (6-14) Blood Urea Nitrogen 36 mg/dL (7-20) Creatinine 0.8 mg/dL (0.6-1.0) Estimated GFR (Cockcroft-Gault) 76.2 BUN/Creatinine Ratio 45 (6-20) Glucose Level 227 mg/dL (70-99) Calcium Level 9.2 mg/dL (8.5-10.1) Phosphorus Level 3.7 mg/dL (2.6-4.7) Magnesium Level 2.5 mg/dL (1.8-2.4) Total Bilirubin 0.4 mg/dL (0.2-1.0) Aspartate Amino Transf (AST/SGOT) 31 U/L (15-37) Alanine Aminotransferase (ALT/SGPT) 29 U/L (14-59) Alkaline Phosphatase 82 U/L (46-116) Total Protein 4.6 g/dL (6.4-8.2) Albumin 1.0 g/dL (3.4-5.0) Albumin/Globulin Ratio 0.3 (1.0-1.7) Problem List Problems Medical Problems: (1) Acute pancreatitis Status: Acute (2) Cholelithiasis Status: Acute Assessment/Plan supportive care Dr Servin returns tomorrow Justicifation of Admission Dx: Justifications for Admission: Justification of Admission Dx: Yes CARIN MALDONADO MD 10/02/19 0948: SURGICAL PROGRESS NOTE Assessment/Plan Agree with Jerardo assessment and plan. Supportive care. 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 APRN Oct 02, 2019 09:14 CARIN MALDONADO MD Oct 02, 2019 09:48
--- NOTE | 2019-10-02 09:32 | PDOC ---
PROGRESS NOTES Chief Complaint Chief Complaint A/P: Acute hypoxic Respiratory failure requiring mechanical ventilation (now extubated for several days but still with tracheostomy) Tracheostomy bilateral pleural effusions/pulm edema Sepsis Severe Acute gallstone pancreatitis (not a surgical candidate at this time) with necrosis Acute kidney failure now requiring dialysis Salpingitis Gallstones (Calculus of gallbladder with acute cholecystitis without obstruction) HTN Leukocytosis Hypoxia Uterine fibroid Intractable pain Intractable nausea Covid 19 negative. Acute on chronic anemia EEG: No seizure activityFever - better currently - intermittent could be from underlying pancreatitis blood cults 08/21 - neg so far ? Ileus with vomiting Abd distention - U/S and CT reviewed s/p 0.4 L of opaque, debris-containing ascites was removed 08/23 Acute pancreatitis with persistent necrosis - 08/14 status post KAYLIN drain placement + C paropsilosis. s/p additional drains Anemia - S/p PRBCs Cholelithiasis with thickening of the gallbladder wall. Leucocytosis improving JUANA, hyperkalemia, Metabolic acidosis off dialysis Acute hypoxic resp failure ,bilateral pleural effusion and atelectasis hypocalcemia Prediabetes HTN s/p trach ESRD on HD Hyperglycemia FEN - PPX - SCDs, off lovenox currently FULL CODE Dispo - ICU, critically ill CC time 49 minutes History of Present Illness History of Present Illness 09/25: IR placed drain on 09/24. 4u PRBC after Hb drop. Hb 8.8 today. Off Levophed this morning. T-max 100.3. Much more lethargic today. CXR with left sided dif fuse infiltrates. 09/26: Tachycardic overnight into the 140s. NGT clamped. On BIPAP currently. Drains with serosanguinous discharge. WBC 8, Tmax 99.6F. 09/27: Seen on trach shield in ICU. Hypertensive and tachycardic. Labs stable. blood stained drainage from drains. Afebrile. 09/28: Seen on trach shield in ICU. She is a bit confused, drowsy, but when sitting up is conversational and confusion somewhat clears. She is asking for more pain medication. Stable drains, still very tachy.Na 147 09/29: Patient vomited overnight. Aspirated. Tried to pull her trach out, she was told she would without her trach, she said "I know, I just want to go home". Hb 7.6. Afebrile, still very tachycardic. 1055ml out of right sided KAYLIN drain 09/30: Overnight hypoxic, on BIPAP. CXR with left sided white out lung. Significant mucous plug suctioned by RT with improvement in her ABG after 2 hours this morning. Not really active, tired, lethargic. 890ml out of drains past 24 hours. On vent. D/w daughter bedside. Still on vent overnight with copious pulmonary drainage on suctioning. Labs stable, UOP stable 1L. Drain output still significant with 1505mL. She has shown her phone password [phone] and made it clear she does not want her daughters to access her phone at this time. 09/23/2019 Patient seen and examined on telemetry floor today This morning I had a couple of discussions with case management The issue is the patient will not wear her trach cap Without that she cannot advance her diet and is currently supposed to be on honey thick liquids I was going to talk to the patient about wearing her trach But when I arrived to the room she was lying on the floor with several nurses and therapist around Apparently she did walk to the end of the meyer then back and then collapsed onto the floor She had a bowel movement when this all happened Appears to be critically ill again Very shaky tremulous anxious has a stare in her eyes We got her back in bed I am extremely concerned about her long-term prognosis again 09/22/2019 Patient seen and examined in the ICU She remains critically ill is is extremely weak Chart reviewed Discussed with RN We decided to try some Prozac as she does seem depressed On IV TPN Still has NG tube 09/21/2019 Patient seen and examined in the ICU She remains critically ill We have been trying to hold off on her Ativan for the past 24 hours She is a little more awake but shaky and agitated and anxious seems depressed Discussed with RN Chart reviewed 09/20/2019 Patient seen and examined in the ICU She is a little more alert today but still quite ill Appears clammy and pale and depressed/anxious Discussed with RN Chart reviewed 09/19/2019 Patient seen and examined in the ICU She appears extremely ill She is tachypneic at 35 respirations per minute and tachycardic at 132 bpm She is extremely encephalopathic and shaky She appears clammy Chart reviewed Discussed with RN Prognosis extremely guarded at best 09/18/2019 Patient still in ICU Resting with no apparent distress Chart reviewed 09/17/2019 Patient seen and examined in the ICU She is wiping her face with a cough Discussed with RN Chart reviewed We hope to get her out of the ICU later today if possible 09/16/2019 Patient seen and examined in the ICU once again She is back on NG suction On IV Zosyn Has IV TPN Sedated with Precedex but anxious still Appears somewhat clammy and pale Chart reviewed Discussed with RN She remains critically ill 09/15/2019 Patient seen and examined in the ICU She has an NG that is clamped we are hoping to start some clear liquids but she looks quite ill She is on IV TPN Meropenem changed to IV Zosyn (agree) She has Lind to bedside drainage She is semi-sedated with Precedex Chart reviewed Discussed with RN She remains critically ill Seen bedside. Hb 8. She was just a bit hypoxic, had a mucous plug suctioned. Able to vocalize well with speaking valve, tells me we are being very hard on her and she would like to be drugged back to sleep. She wants to wake up and feel better. On trach shield, T max 100.4. afebrile this a.m. 09/13/2019 Patient seen and examined in the ICU She is up in the chair very frail trying to talk a little shaky Discussed with RN Chart reviewed 09/12/2019 Patient seen and examined in the ICU Patient up in the chair Having a severe coughing episode with a lot of phlegm coming out of her tracheostomy Discussed with RN Discussed with physical therapy Chart reviewed 09/10,. feels well, has been out of room in wheelchair no complaint, still weak, some with not wanting to wear her valve on trach cont other, may be able to work with speech tomorrow, videoswallow OK to try, 09/09, anxiety is up today, she dislikes the valve still, shower and outside today . 09/08 she doesnt want to wear her passy-fantasma valve, discussed str and plan with her. speech following, needs swallow study, but needs to wear her valve longer, cont current able to walk some, walker 09/07 stronger, better, we discussed better oral care she would like to try swallow study, wants to try to eat, speech is following 09/07/2019 She remains in the ICU sitting up and working with OT, getting better if limit pain meds, may do better off the vent, Nurses trying to suction her, that is also improved, Chart reviewed 09/06/2019 Patient seen and examined in the ICU She had an episode yesterday of tachycardia and severe agitation we gave her some Ativan After that she seemed to have stroke symptoms but now that the Ativan has wore off her stroke symptoms have resolved She is on IV meropenem and daptomycin and micafungin Chart reviewed Discussed with RN Patient is still critically ill BRIEF OPERATIVE NOTE Pre-Op Diagnosis Pancreatitis with pseudocysts, suspected infection Post-Op Diagnosis same Procedure Performed CT abdominal Drains x 3 Surgeon Tesfaye Anesthesia Type: Conscious Sedation Findings 3 abdominal drains, 14F, with turbid pancreatic fluid and necrotic debris in each. Complications No immediate 08/26: Patient today somewhat restless and having bilious secretions from ET tube, imaging studies ordered, discussed with commercial sales consultant. Pretty poor prognosis, hopefully is not a fistula, poor surgical candidate. 08/27: Imaging with no acute events, she seems more stable today compared to yesterday. Encouraged as much activity as possible patient at high risk for severe depression. Vitals Vitals Vital Signs Date Time Temp Pulse Resp B/P (MAP) Pulse Ox O2 Delivery O2 Flow Rate FiO2 10/02/19 09:00 69 20 119/60 (79) 99 Ventilator 10/02/19 08:00 97.6 97.6 Physical Exam Physical Exam GENERAL: Lethargic, opens eyes transiently HEENT: NGT in place. Oral mucosa dry NECK: Tracheostomy LUNGS: Diminished aeration bases, no accessory muscle use HEART: S1, S2, tachy, regular ABDOMEN: Mild distention, bowel sounds present, soft, grimaces to palpation Right lateral side drainage bag, 3 drains with bloodstained drainage : Lind ( 09/24) EXTREMITIES: Trace edema .no cyanosis SKIN: no signs of gen rash GATE CLERK: Lethargic very weak LUE-PICC (09/15) without signs of complications - art line without complications General: No acute distress Heart: Regular rate, Normal S1, Normal S2, No murmurs, Gallops Lungs: Other (diminshed in bases, Rhonci in LLL) Abdomen: Other (drains in place) Extremities: No clubbing, No cyanosis, No edema, Normal pulses, No tenderness /swelling Skin: Other (warm, dry) Labs LABS Laboratory Tests Test 10/01/19 11:24 10/01/19 15:08 10/01/19 18:19 10/01/19 20:10 Glucose (Fingerstick) 187 mg/dL (70-99) 220 mg/dL (70-99) White Blood Count 9.3 x10^3/uL (4.0-11.0) 8.4 x10^3/uL (4.0-11.0) Red Blood Count 2.78 x10^6/uL (3.50-5.40) 3.04 x10^6/uL (3.50-5.40) Hemoglobin 8.1 g/dL (12.0-15.5) 9.0 g/dL (12.0-15.5) Hematocrit 23.5 % (36.0-47.0) 26.0 % (36.0-47.0) Mean Corpuscular Volume 85 fL (79-100) 86 fL (79-100) Mean Corpuscular Hemoglobin 29 pg (25-35) 30 pg (25-35) Mean Corpuscular Hemoglobin Concent 34 g/dL (31-37) 35 g/dL (31-37) Red Cell Distribution Width 19.1 % (11.5-14.5) 18.7 % (11.5-14.5) Platelet Count 380 x10^3/uL (140-400) 388 x10^3/uL (140-400) Magnesium Level 1.5 mg/dL (1.8-2.4) Test 10/02/19 00:38 10/02/19 05:30 Glucose (Fingerstick) 188 mg/dL (70-99) White Blood Count 7.5 x10^3/uL (4.0-11.0) Red Blood Count 2.95 x10^6/uL (3.50-5.40) Hemoglobin 8.6 g/dL (12.0-15.5) Hematocrit 25.0 % (36.0-47.0) Mean Corpuscular Volume 85 fL (79-100) Mean Corpuscular Hemoglobin 29 pg (25-35) Mean Corpuscular Hemoglobin Concent 34 g/dL (31-37) Red Cell Distribution Width 18.0 % (11.5-14.5) Platelet Count 382 x10^3/uL (140-400) Neutrophils (%) (Auto) 79 % (31-73) Lymphocytes (%) (Auto) 17 % (24-48) Monocytes (%) (Auto) 4 % (0-9) Eosinophils (%) (Auto) 0 % (0-3) Basophils (%) (Auto) 0 % (0-3) Neutrophils # (Auto) 5.9 x10^3/uL (1.8-7.7) Lymphocytes # (Auto) 1.3 x10^3/uL (1.0-4.8) Monocytes # (Auto) 0.3 x10^3/uL (0.0-1.1) Eosinophils # (Auto) 0.0 x10^3/uL (0.0-0.7) Basophils # (Auto) 0.0 x10^3/uL (0.0-0.2) Sodium Level 145 mmol/L (136-145) Potassium Level 3.8 mmol/L (3.5-5.1) Chloride Level 113 mmol/L (98-107) Carbon Dioxide Level 24 mmol/L (21-32) Anion Gap 8 (6-14) Blood Urea Nitrogen 36 mg/dL (7-20) Creatinine 0.8 mg/dL (0.6-1.0) Estimated GFR (Cockcroft-Gault) 76.2 BUN/Creatinine Ratio 45 (6-20) Glucose Level 227 mg/dL (70-99) Calcium Level 9.2 mg/dL (8.5-10.1) Phosphorus Level 3.7 mg/dL (2.6-4.7) Magnesium Level 2.5 mg/dL (1.8-2.4) Total Bilirubin 0.4 mg/dL (0.2-1.0) Aspartate Amino Transf (AST/SGOT) 31 U/L (15-37) Alanine Aminotransferase (ALT/SGPT) 29 U/L (14-59) Alkaline Phosphatase 82 U/L (46-116) Total Protein 4.6 g/dL (6.4-8.2) Albumin 1.0 g/dL (3.4-5.0) Albumin/Globulin Ratio 0.3 (1.0-1.7) Assessment and Plan Assessmemt and Plan Problems Medical Problems: (1) Acute pancreatitis Status: Acute (2) Cholelithiasis Status: Acute Comment Review of Relevant I have reviewed the following items kolby (where applicable) has been applied. Labs Laboratory Tests Test 09/30/19 12:05 09/30/19 12:45 09/30/19 17:11 09/30/19 23:56 Glucose (Fingerstick) 158 mg/dL (70-99) 145 mg/dL (70-99) 140 mg/dL (70-99) White Blood Count 7.0 x10^3/uL (4.0-11.0) Red Blood Count 2.99 x10^6/uL (3.50-5.40) Hemoglobin 8.5 g/dL (12.0-15.5) Hematocrit 25.7 % (36.0-47.0) Mean Corpuscular Volume 86 fL (79-100) Mean Corpuscular Hemoglobin 29 pg (25-35) Mean Corpuscular Hemoglobin Concent 33 g/dL (31-37) Red Cell Distribution Width 19.7 % (11.5-14.5) Platelet Count 347 x10^3/uL (140-400) Test 10/01/19 04:00 10/01/19 05:20 10/01/19 07:50 10/01/19 11:24 White Blood Count 9.4 x10^3/uL (4.0-11.0) Red Blood Count 3.27 x10^6/uL (3.50-5.40) Hemoglobin 9.2 g/dL (12.0-15.5) Hematocrit 27.7 % (36.0-47.0) Mean Corpuscular Volume 85 fL (79-100) Mean Corpuscular Hemoglobin 28 pg (25-35) Mean Corpuscular Hemoglobin Concent 33 g/dL (31-37) Red Cell Distribution Width 20.1 % (11.5-14.5) Platelet Count 433 x10^3/uL (140-400) Neutrophils (%) (Auto) 76 % (31-73) Lymphocytes (%) (Auto) 17 % (24-48) Monocytes (%) (Auto) 5 % (0-9) Eosinophils (%) (Auto) 2 % (0-3) Basophils (%) (Auto) 0 % (0-3) Neutrophils # (Auto) 7.2 x10^3/uL (1.8-7.7) Lymphocytes # (Auto) 1.6 x10^3/uL (1.0-4.8) Monocytes # (Auto) 0.5 x10^3/uL (0.0-1.1) Eosinophils # (Auto) 0.2 x10^3/uL (0.0-0.7) Basophils # (Auto) 0.0 x10^3/uL (0.0-0.2) Sodium Level 146 mmol/L (136-145) Potassium Level 3.8 mmol/L (3.5-5.1) Chloride Level 112 mmol/L (98-107) Carbon Dioxide Level 24 mmol/L (21-32) Anion Gap 10 (6-14) Blood Urea Nitrogen 25 mg/dL (7-20) Creatinine 0.7 mg/dL (0.6-1.0) Estimated GFR (Cockcroft-Gault) 88.9 Glucose Level 151 mg/dL (70-99) Calcium Level 10.1 mg/dL (8.5-10.1) O2 Saturation 89 % (92-99) 99 % (92-99) Arterial Blood pH 7.29 (7.35-7.45) 7.39 (7.35-7.45) Arterial Blood pCO2 at Patient Temp 50 mmHg (35-46) 38 mmHg (35-46) Arterial Blood pO2 at Patient Temp 64 mmHg (75-108) 177 mmHg (75-108) Arterial Blood HCO3 24 mmol/L (21-28) 23 mmol/L (21-28) Arterial Blood Base Excess -3 mmol/L (-3-3) -2 mmol/L (-3-3) FiO2 75 Glucose (Fingerstick) 187 mg/dL (70-99) Test 10/01/19 15:08 10/01/19 18:19 10/01/19 20:10 10/02/19 00:38 White Blood Count 9.3 x10^3/uL (4.0-11.0) 8.4 x10^3/uL (4.0-11.0) Red Blood Count 2.78 x10^6/uL (3.50-5.40) 3.04 x10^6/uL (3.50-5.40) Hemoglobin 8.1 g/dL (12.0-15.5) 9.0 g/dL (12.0-15.5) Hematocrit 23.5 % (36.0-47.0) 26.0 % (36.0-47.0) Mean Corpuscular Volume 85 fL (79-100) 86 fL (79-100) Mean Corpuscular Hemoglobin 29 pg (25-35) 30 pg (25-35) Mean Corpuscular Hemoglobin Concent 34 g/dL (31-37) 35 g/dL (31-37) Red Cell Distribution Width 19.1 % (11.5-14.5) 18.7 % (11.5-14.5) Platelet Count 380 x10^3/uL (140-400) 388 x10^3/uL (140-400) Magnesium Level 1.5 mg/dL (1.8-2.4) Glucose (Fingerstick) 220 mg/dL (70-99) 188 mg/dL (70-99) Test 10/02/19 05:30 White Blood Count 7.5 x10^3/uL (4.0-11.0) Red Blood Count 2.95 x10^6/uL (3.50-5.40) Hemoglobin 8.6 g/dL (12.0-15.5) Hematocrit 25.0 % (36.0-47.0) Mean Corpuscular Volume 85 fL (79-100) Mean Corpuscular Hemoglobin 29 pg (25-35) Mean Corpuscular Hemoglobin Concent 34 g/dL (31-37) Red Cell Distribution Width 18.0 % (11.5-14.5) Platelet Count 382 x10^3/uL (140-400) Neutrophils (%) (Auto) 79 % (31-73) Lymphocytes (%) (Auto) 17 % (24-48) Monocytes (%) (Auto) 4 % (0-9) Eosinophils (%) (Auto) 0 % (0-3) Basophils (%) (Auto) 0 % (0-3) Neutrophils # (Auto) 5.9 x10^3/uL (1.8-7.7) Lymphocytes # (Auto) 1.3 x10^3/uL (1.0-4.8) Monocytes # (Auto) 0.3 x10^3/uL (0.0-1.1) Eosinophils # (Auto) 0.0 x10^3/uL (0.0-0.7) Basophils # (Auto) 0.0 x10^3/uL (0.0-0.2) Sodium Level 145 mmol/L (136-145) Potassium Level 3.8 mmol/L (3.5-5.1) Chloride Level 113 mmol/L (98-107) Carbon Dioxide Level 24 mmol/L (21-32) Anion Gap 8 (6-14) Blood Urea Nitrogen 36 mg/dL (7-20) Creatinine 0.8 mg/dL (0.6-1.0) Estimated GFR (Cockcroft-Gault) 76.2 BUN/Creatinine Ratio 45 (6-20) Glucose Level 227 mg/dL (70-99) Calcium Level 9.2 mg/dL (8.5-10.1) Phosphorus Level 3.7 mg/dL (2.6-4.7) Magnesium Level 2.5 mg/dL (1.8-2.4) Total Bilirubin 0.4 mg/dL (0.2-1.0) Aspartate Amino Transf (AST/SGOT) 31 U/L (15-37) Alanine Aminotransferase (ALT/SGPT) 29 U/L (14-59) Alkaline Phosphatase 82 U/L (46-116) Total Protein 4.6 g/dL (6.4-8.2) Albumin 1.0 g/dL (3.4-5.0) Albumin/Globulin Ratio 0.3 (1.0-1.7) Laboratory Tests Test 10/01/19 11:24 10/01/19 15:08 10/01/19 18:19 10/01/19 20:10 Glucose (Fingerstick) 187 mg/dL (70-99) 220 mg/dL (70-99) White Blood Count 9.3 x10^3/uL (4.0-11.0) 8.4 x10^3/uL (4.0-11.0) Red Blood Count 2.78 x10^6/uL (3.50-5.40) 3.04 x10^6/uL (3.50-5.40) Hemoglobin 8.1 g/dL (12.0-15.5) 9.0 g/dL (12.0-15.5) Hematocrit 23.5 % (36.0-47.0) 26.0 % (36.0-47.0) Mean Corpuscular Volume 85 fL (79-100) 86 fL (79-100) Mean Corpuscular Hemoglobin 29 pg (25-35) 30 pg (25-35) Mean Corpuscular Hemoglobin Concent 34 g/dL (31-37) 35 g/dL (31-37) Red Cell Distribution Width 19.1 % (11.5-14.5) 18.7 % (11.5-14.5) Platelet Count 380 x10^3/uL (140-400) 388 x10^3/uL (140-400) Magnesium Level 1.5 mg/dL (1.8-2.4) Test 10/02/19 00:38 10/02/19 05:30 Glucose (Fingerstick) 188 mg/dL (70-99) White Blood Count 7.5 x10^3/uL (4.0-11.0) Red Blood Count 2.95 x10^6/uL (3.50-5.40) Hemoglobin 8.6 g/dL (12.0-15.5) Hematocrit 25.0 % (36.0-47.0) Mean Corpuscular Volume 85 fL (79-100) Mean Corpuscular Hemoglobin 29 pg (25-35) Mean Corpuscular Hemoglobin Concent 34 g/dL (31-37) Red Cell Distribution Width 18.0 % (11.5-14.5) Platelet Count 382 x10^3/uL (140-400) Neutrophils (%) (Auto) 79 % (31-73) Lymphocytes (%) (Auto) 17 % (24-48) Monocytes (%) (Auto) 4 % (0-9) Eosinophils (%) (Auto) 0 % (0-3) Basophils (%) (Auto) 0 % (0-3) Neutrophils # (Auto) 5.9 x10^3/uL (1.8-7.7) Lymphocytes # (Auto) 1.3 x10^3/uL (1.0-4.8) Monocytes # (Auto) 0.3 x10^3/uL (0.0-1.1) Eosinophils # (Auto) 0.0 x10^3/uL (0.0-0.7) Basophils # (Auto) 0.0 x10^3/uL (0.0-0.2) Sodium Level 145 mmol/L (136-145) Potassium Level 3.8 mmol/L (3.5-5.1) Chloride Level 113 mmol/L (98-107) Carbon Dioxide Level 24 mmol/L (21-32) Anion Gap 8 (6-14) Blood Urea Nitrogen 36 mg/dL (7-20) Creatinine 0.8 mg/dL (0.6-1.0) Estimated GFR (Cockcroft-Gault) 76.2 BUN/Creatinine Ratio 45 (6-20) Glucose Level 227 mg/dL (70-99) Calcium Level 9.2 mg/dL (8.5-10.1) Phosphorus Level 3.7 mg/dL (2.6-4.7) Magnesium Level 2.5 mg/dL (1.8-2.4) Total Bilirubin 0.4 mg/dL (0.2-1.0) Aspartate Amino Transf (AST/SGOT) 31 U/L (15-37) Alanine Aminotransferase (ALT/SGPT) 29 U/L (14-59) Alkaline Phosphatase 82 U/L (46-116) Total Protein 4.6 g/dL (6.4-8.2) Albumin 1.0 g/dL (3.4-5.0) Albumin/Globulin Ratio 0.3 (1.0-1.7) Microbiology 09/25/19 Gram Stain - Final, Complete 09/25/19 Aerobic and Anaerobic Culture - Final, Complete 09/25/19 Antimicrobic Susceptibility - Final, Complete 09/25/19 Blood Culture - Final, Complete NO GROWTH AFTER 5 DAYS 09/25/19 Urine Culture - Final, Complete 09/17/19 Gram Stain - Final, Complete 09/17/19 Aerobic Culture - Final, Complete Medications Current Medications Sodium Chloride 1,000 ml @ 1,000 mls/hr Q1H IV Last administered on 07/04/19at 03:00; Start 07/04/19 at 03:00; Stop 07/04/19 at 03:59; Status DC Ondansetron HCl (Zofran) 4 mg 1X ONCE IVP Last administered on 07/04/19at 03:27; Start 07/04/19 at 03:00; Stop 07/04/19 at 03:01; Status DC Morphine Sulfate (Morphine Sulfate) 4 mg 1X ONCE IV ; Start 07/04/19 at 03:00; Stop 07/04/19 at 03:01; Status Cancel Ketorolac Tromethamine (Toradol 30mg Vial) 30 mg 1X ONCE IV Last administered on 07/04/19at 02:54; Start 07/04/19 at 03:00; Stop 07/04/19 at 03:01; Status DC Fentanyl Citrate (Fentanyl 2ml Vial) 25 mcg 1X ONCE IVP Last administered on 07/04/19at 03:23; Start 07/04/19 at 03:30; Stop 07/04/19 at 03:31; Status DC Fentanyl Citrate (Fentanyl 2ml Vial) 100 mcg STK-MED ONCE .ROUTE ; Start 07/04/19 at 03:18; Stop 07/04/19 at 03:18; Status DC Iohexol (Omnipaque 350 Mg/ml) 90 ml 1X ONCE IV Last administered on 07/04/19at 03:25; Start 07/04/19 at 03:30; Stop 07/04/19 at 03:31; Status DC Info (CONTRAST GIVEN -- Rx MONITORING) 1 each PRN DAILY PRN MC SEE COMMENTS; Start 07/04/19 at 03:30; Stop 07/06/19 at 03:29; Status DC Hydromorphone HCl (Dilaudid) 0.5 mg 1X ONCE IV Last administered on 07/04/19at 03:55; Start 07/04/19 at 04:30; Stop 07/04/19 at 04:32; Status DC Ondansetron HCl (Zofran) 4 mg PRN Q8HRS PRN IV NAUSEA/VOMITING 1ST CHOICE; Start 07/04/19 at 05:00; Stop 07/04/19 at 09:27; Status DC Morphine Sulfate (Morphine Sulfate) 2 mg PRN Q2HR PRN IV SEVERE PAIN 7-10 Last administered on 07/05/19at 12:26; Start 07/04/19 at 05:00; Stop 07/05/19 at 14:15; Status DC Sodium Chloride 1,000 ml @ 125 mls/hr Q8H IV Last administered on 07/04/19at 20:56; Start 07/04/19 at 05:00; Stop 07/05/19 at 04:59; Status DC Hydromorphone HCl (Dilaudid) 0.5 mg PRN Q3HRS PRN IV SEVERE PAIN 7-10 Last administered on 07/05/19at 10:06; Start 07/04/19 at 05:00; Stop 07/05/19 at 12:01; Status DC Piperacillin Sod/ Tazobactam Sod 4.5 gm/Sodium Chloride 100 ml @ 200 mls/hr 1X ONCE IV Last administered on 07/04/19at 05:44; Start 07/04/19 at 06:00; Stop 07/04/19 at 06:29; Status DC Ondansetron HCl (Zofran) 4 mg PRN Q4HRS PRN IV NAUSEA/VOMITING 1ST CHOICE Last administered on 10/02/19at 01:35; Start 07/04/19 at 09:30 Insulin Human Lispro (HumaLOG) 0-9 UNITS Q6HRS SQ Last administered on 10/02/19at 06:06; Start 07/04/19 at 09:30 Dextrose (Dextrose 50%-Water Syringe) 12.5 gm PRN Q15MIN PRN IV SEE COMMENTS; Start 07/04/19 at 09:30 Pantoprazole Sodium (PROTONIX VIAL for IV PUSH) 40 mg DAILYAC IVP Last administered on 10/02/19at 08:58; Start 07/04/19 at 11:30 Prochlorperazine Edisylate (Compazine) 10 mg PRN Q6HRS PRN IV NAUSEA/VOMITING, 2nd CHOICE Last administered on 09/28/19at 14:33; Start 07/04/19 at 17:45 Atenolol (Tenormin) 100 mg DAILY PO ; Start 07/05/19 at 09:00; Stop 07/04/19 at 20:08; Status DC Metoprolol Tartrate (Lopressor Vial) 2.5 mg Q6HRS IVP Last administered on 07/05/19at 05:51; Start 07/04/19 at 20:15; Stop 07/05/19 at 10:02; Status DC Metoprolol Tartrate (Lopressor Vial) 5 mg Q6HRS IVP Last administered on 07/14/19at 00:12; Start 07/05/19 at 10:15; Stop 07/16/19 at 08:48; Status DC Hydromorphone HCl (Dilaudid) 1 mg PRN Q3HRS PRN IV SEVERE PAIN 7-10 Last administered on 07/11/19at 05:13; Start 07/05/19 at 12:00; Stop 07/19/19 at 00:25; Status DC Lidocaine HCl (Buffered Lidocaine 1%) 3 ml STK-MED ONCE .ROUTE ; Start 07/05/19 at 12:55; Stop 07/05/19 at 12:56; Status DC Albumin Human 500 ml @ 125 mls/hr 1X ONCE IV Last administered on 07/05/19at 14:33; Start 07/05/19 at 14:30; Stop 07/05/19 at 18:32; Status DC Norepinephrine Bitartrate 8 mg/ Dextrose 258 ml @ 17.299 mls/ hr CONT PRN IV PER PROTOCOL Last administered on 08/02/19at 12:48; Start 07/05/19 at 15:30; Stop 08/05/19 at 09:19; Status DC Sodium Chloride 1,000 ml @ 125 mls/hr Q8H IV Last administered on 07/05/19at 21:04; Start 07/05/19 at 16:00; Stop 07/06/19 at 02:42; Status DC Albumin Human 500 ml @ 125 mls/hr PRN BID PRN IV After every 2L NSS & BP < 90mm Last administered on 09/24/19at 11:40; Start 07/05/19 at 16:00 Iohexol (Omnipaque 300 Mg/ml) 60 ml 1X ONCE IV Last administered on 07/05/19at 17:20; Start 07/05/19 at 17:00; Stop 07/05/19 at 17:01; Status DC Info (CONTRAST GIVEN -- Rx MONITORING) 1 each PRN DAILY PRN MC SEE COMMENTS; Start 07/05/19 at 17:00; Stop 07/07/19 at 16:59; Status DC Meropenem 1 gm/ Sodium Chloride 100 ml @ 200 mls/hr Q8HRS IV Last administered on 07/06/19at 05:45; Start 07/05/19 at 20:00; Stop 07/06/19 at 08:48; Status DC Furosemide (Lasix) 40 mg 1X ONCE IVP Last administered on 07/05/19at 22:12; Start 07/05/19 at 22:30; Stop 07/05/19 at 22:31; Status DC Calcium Chloride 1000 mg/Sodium Chloride 110 ml @ 220 mls/hr 1X ONCE IV Last administered on 07/05/19at 22:11; Start 07/05/19 at 22:30; Stop 07/05/19 at 22:59; Status DC Albuterol Sulfate (Ventolin Neb Soln) 2.5 mg 1X ONCE NEB Last administered on 07/06/19at 00:56; Start 07/05/19 at 22:30; Stop 07/05/19 at 22:31; Status DC Insulin Human Regular (HumuLIN R VIAL) 5 unit 1X ONCE IV Last administered on 07/05/19at 22:14; Start 07/05/19 at 22:30; Stop 07/05/19 at 22:31; Status DC Magnesium Sulfate 50 ml @ 25 mls/hr 1X ONCE IV Last administered on 07/06/19at 02:57; Start 07/06/19 at 03:00; Stop 07/06/19 at 04:59; Status DC Calcium Gluconate 1000 mg/Sodium Chloride 110 ml @ 220 mls/hr 1X ONCE IV Last administered on 07/06/19at 02:46; Start 07/06/19 at 03:00; Stop 07/06/19 at 03:29; Status DC Sodium Chloride 1,000 ml @ 200 mls/hr Q5H IV Last administered on 07/06/19at 02:46; Start 07/06/19 at 03:00; Stop 07/06/19 at 10:21; Status DC Calcium Gluconate 1000 mg/Sodium Chloride 110 ml @ 220 mls/hr 1X ONCE IV Last administered on 07/06/19at 03:21; Start 07/06/19 at 03:30; Stop 07/06/19 at 03:59; Status DC Sodium Bicarbonate 50 meq/Sodium Chloride 1,050 ml @ 75 mls/hr Q14H IV Last administered on 07/10/19at 21:10; Start 07/06/19 at 07:30; Stop 07/11/19 at 10:28; Status DC Calcium Gluconate 2000 mg/Sodium Chloride 120 ml @ 220 mls/hr 1X ONCE IV Last administered on 07/06/19at 09:05; Start 07/06/19 at 07:30; Stop 07/06/19 at 08:02; Status DC Lidocaine HCl (Xylocaine-Mpf 1% 2ml Vial) 2 ml STK-MED ONCE .ROUTE ; Start 07/06/19 at 08:47; Stop 07/06/19 at 08:47; Status DC Meropenem 500 mg/ Sodium Chloride 50 ml @ 100 mls/hr Q12HR IV Last a dministered on 07/11/19at 21:01; Start 07/06/19 at 18:00; Stop 07/12/19 at 07:58; Status DC Lidocaine HCl (Buffered Lidocaine 1%) 3 ml STK-MED ONCE .ROUTE ; Start 07/06/19 at 09:46; Stop 07/06/19 at 09:46; Status DC Lidocaine HCl (Buffered Lidocaine 1%) 6 ml 1X ONCE INJ Last administered on 07/06/19at 10:26; Start 07/06/19 at 10:15; Stop 07/06/19 at 10:16; Status DC Info (Tpn Per Pharmacy) 1 each PRN DAILY PRN MC SEE COMMENTS Last administered on 10/01/19at 09:33; Start 07/06/19 at 12:00 Sodium Chloride 1,000 ml @ 1,000 mls/hr Q1H PRN IV hypotension; Start 07/06/19 at 12:07; Stop 07/06/19 at 18:06; Status DC Diphenhydramine HCl (Benadryl) 25 mg 1X PRN PRN IV ITCHING; Start 07/06/19 at 12:15; Stop 07/07/19 at 12:14; Status DC Diphenhydramine HCl (Benadryl) 25 mg 1X PRN PRN IV ITCHING; Start 07/06/19 at 12:15; Stop 07/07/19 at 12:14; Status DC Sodium Chloride 1,000 ml @ 400 mls/hr Q2H30M PRN IV PATENCY; Start 07/06/19 at 12:07; Stop 07/07/19 at 00:06; Status DC Info (PHARMACY MONITORING -- do not chart) 1 each PRN DAILY PRN MC SEE COMMENTS; Start 07/06/19 at 12:15; Stop 07/08/19 at 08:13; Status DC Sodium Chloride 90 meq/Calcium Gluconate 10 meq/ Multivitamins 10 ml/Chromium/ Copper/Manganese/ Seleni/Zn 1 ml/ Total Parenteral Nutrition/Amino Acids/D extrose/ Fat Emulsion Intravenous 55.005 ml @ 2.292 mls/hr TPN CONT IV ; Start 07/06/19 at 22:00; Stop 07/06/19 at 12:33; Status DC Info (Tpn Per Pharmacy) 1 each PRN DAILY PRN MC SEE COMMENTS; Start 07/06/19 at 12:30; Status UNV Sodium Chloride 90 meq/Calcium Gluconate 10 meq/ Multivitamins 10 ml/Chromium/ Copper/Manganese/ Seleni/Zn 0.5 ml/ Total Parenteral Nutrition/Amino A cids/Dextrose/ Fat Emulsion Intravenous 1,512 ml @ 63 mls/hr TPN CONT IV Last administered on 07/06/19at 22:06; Start 07/06/19 at 22:00; Stop 07/07/19 at 21:59; Status DC Calcium Carbonate/ Glycine (Tums) 500 mg PRN AFTMEALHC PRN PO INDIGESTION; Start 07/06/19 at 17:45; Stop 08/31/19 at 10:25; Status DC Calcium Gluconate (Calcium Gluconate) 2,000 mg 1X ONCE IVP Last administered on 07/07/19at 02:19; Start 07/07/19 at 02:15; Stop 07/07/19 at 02:16; Status DC Calcium Chloride 3000 mg/Sodium Chloride 1,030 ml @ 50 mls/hr [id number] IV Last administered on 07/09/19at 02:17; Start 07/07/19 at 08:00; Stop 07/09/19 at 15:23; Status DC Lorazepam (Ativan Inj) 1 mg PRN Q4HRS PRN IVP ANXIETY / AGITATION, 2nd choic Last administered on 08/05/19at 03:51; Start 07/07/19 at 09:00; Stop 08/05/19 at 09:19; Status DC Sodium Chloride 1,000 ml @ 1,000 mls/hr Q1H PRN IV hypotension; Start 07/07/19 at 08:56; Stop 07/07/19 at 14:55; Status DC Albumin Human 200 ml @ 200 mls/hr 1X PRN PRN IV Hypotension; Start 07/07/19 at 09:00; Stop 07/07/19 at 14:59; Status DC Diphenhydramine HCl (Benadryl) 25 mg 1X PRN PRN IV ITCHING; Start 07/07/19 at 09:00; Stop 07/08/19 at 08:59; Status DC Diphenhydramine HCl (Benadryl) 25 mg 1X PRN PRN IV ITCHING; Start 07/07/19 at 09:00; Stop 07/08/19 at 08:59; Status DC Sodium Chloride 1,000 ml @ 400 mls/hr Q2H30M PRN IV PATENCY; Start 07/07/19 at 08:56; Stop 07/07/19 at 20:55; Status DC Info (PHARMACY MONITORING -- do not chart) 1 each PRN DAILY PRN MC SEE COMMENTS; Start 07/07/19 at 09:00; Status UNV Info (PHARMACY MONITORING -- do not chart) 1 each PRN DAILY PRN MC SEE COMMENTS; Start 07/07/19 at 09:00; Stop 07/08/19 at 08:13; Status DC Digoxin (Lanoxin) 500 mcg 1X ONCE IV Last administered on 07/07/19at 10:04; Start 07/07/19 at 10:00; Stop 07/07/19 at 10:01; Status DC Digoxin (Lanoxin) 125 mcg 1X ONCE IV Last administered on 07/07/19at 17:10; Start 07/07/19 at 18:00; Stop 07/07/19 at 18:01; Status DC Magnesium Sulfate 100 ml @ 25 mls/hr 1X ONCE IV Last administered on 07/07/19at 12:48; Start 07/07/19 at 13:00; Stop 07/07/19 at 16:59; Status DC Sodium Chloride 90 meq/Magnesium Sulfate 10 meq/ Calcium Gluconate 20 meq/ Multivitamins 10 ml/Chromium/ Copper/Manganese/ Seleni/Zn 0.5 ml/ Total Parenteral Nutrition/Amino Acids/Dextrose/ Fat Emulsion Intravenous 1,512 ml @ 63 mls/hr TPN CONT IV Last administered on 07/07/19at 22:25; Start 07/07/19 at 22:00; Stop 07/08/19 at 21:59; Status DC Sodium Chloride 1,000 ml @ 1,000 mls/hr Q1H PRN IV hypotension; Start 07/08/19 at 08:05; Stop 07/08/19 at 14:04; Status DC Albumin Human 200 ml @ 200 mls/hr 1X ONCE IV Last administered on 07/08/19at 08:57; Start 07/08/19 at 08:15; Stop 07/08/19 at 09:14; Status DC Diphenhydramine HCl (Benadryl) 25 mg 1X PRN PRN IV ITCHING; Start 07/08/19 at 08:15; Stop 07/09/19 at 08:14; Status DC Diphenhydramine HCl (Benadryl) 25 mg 1X PRN PRN IV ITCHING; Start 07/08/19 at 08:15; Stop 07/09/19 at 08:14; Status DC Sodium Chloride 1,000 ml @ 400 mls/hr Q2H30M PRN IV PATENCY; Start 07/08/19 at 08:05; Stop 07/08/19 at 20:04; Status DC Info (PHARMACY MONITORING -- do not chart) 1 each PRN DAILY PRN MC SEE COMMENTS; Start 07/08/19 at 08:15; Stop 07/12/19 at 07:57; Status DC Sodium Chloride 90 meq/Potassium Chloride 15 meq/ Potassium Phosphate 10 mmol/ Magnesium Sulfate 10 meq/Calcium Gluconate 20 meq/ Multivitamins 10 ml/Chromium/ Copper/Manganese/ Seleni/Zn 0.5 ml/ Total Parenteral Nutrition/Amino Acids/Dextrose/ Fat Emulsion Intravenous 1,512 ml @ 63 mls/hr TPN CONT IV Last administered on 07/08/19at 21:01; Start 07/08/19 at 22:00; Stop 07/09/19 at 21:59; Status DC Potassium Chloride/Water 100 ml @ 100 mls/hr 1X ONCE IV Last administered on 07/08/19at 14:09; Start 07/08/19 at 14:00; Stop 07/08/19 at 14:59; Status DC Benzocaine (Hurricaine One) 1 spray 1X ONCE MM Last administered on 07/08/19at 16:38; Start 07/08/19 at 14:30; Stop 07/08/19 at 14:31; Status DC Lidocaine HCl (Glydo (Lidocaine) Jelly) 1 ramu 1X ONCE MM Last administered on 07/08/19at 16:38; Start 07/08/19 at 14:30; Stop 07/08/19 at 14:31; Status DC Linezolid/Dextrose 300 ml @ 300 mls/hr Q12HR IV Last administered on 07/14/19at 21:04; Start 07/08/19 at 20:00; Stop 07/15/19 at 07:50; Status DC Acetaminophen (Tylenol) 650 mg PRN Q6HRS PRN PO MILD PAIN / TEMP; Start 07/09/19 at 03:30; Stop 07/09/19 at 03:36; Status DC Acetaminophen (Tylenol) 650 mg PRN Q6HRS PRN PEG MILD PAIN / TEMP Last administered on 08/04/19at 19:56; Start 07/09/19 at 03:36; Stop 08/31/19 at 10:25; Status DC Sodium Chloride 1,000 ml @ 1,000 mls/hr Q1H PRN IV hypotension; Start 07/09/19 at 07:50; Stop 07/09/19 at 13:49; Status DC Albumin Human 200 ml @ 200 mls/hr 1X PRN PRN IV Hypotension; Start 07/09/19 at 08:00; Stop 07/09/19 at 13:59; Status DC Sodium Chloride (Normal Saline Flush) 10 ml 1X PRN PRN IV AP catheter pack; Start 07/09/19 at 08:00; Stop 07/10/19 at 07:59; Status DC Sodium Chloride (Normal Saline Flush) 10 ml 1X PRN PRN IV [employer] catheter pack; Start 07/09/19 at 08:00; Stop 07/10/19 at 07:59; Status DC Sodium Chloride 1,000 ml @ 400 mls/hr Q2H30M PRN IV PATENCY; Start 07/09/19 at 07:50; Stop 07/09/19 at 19:49; Status DC Info (PHARMACY MONITORING -- do not chart) 1 each PRN DAILY PRN MC SEE COMMENTS; Start 07/09/19 at 08:00; Status UNV Info (PHARMACY MONITORING -- do not chart) 1 each PRN DAILY PRN MC SEE COMMENTS; Start 07/09/19 at 08:00; Stop 07/11/19 at 08:25; Status DC Sodium Chloride 90 meq/Potassium Chloride 15 meq/ Potassium Phosphate 10 mmol/ Magnesium Sulfate 10 meq/Calcium Gluconate 20 meq/ Multivitamins 10 ml/Chromium/ Copper/Manganese/ Seleni/Zn 0.5 ml/ Total Parenteral Nutrition/Amino Acids/Dextrose/ Fat Emulsion Intravenous 1,512 ml @ 63 mls/hr TPN CONT IV Last administered on 07/09/19at 20:57; Start 07/09/19 at 22:00; Stop 07/10/19 at 21:59; Status DC Sodium Chloride 90 meq/Potassium Chloride 15 meq/ Potassium Phosphate 15 mmol/ Magnesium Sulfate 10 meq/Calcium Gluconate 20 meq/ Multivitamins 10 ml/Chromium/ Copper/Manganese/ Seleni/Zn 0.5 ml/ Total Parenteral Nutrition/Amino Acids/Dextrose/ Fat Emulsion Intravenous 1,512 ml @ 63 mls/hr TPN CONT IV ; Start 07/10/19 at 22:00; Stop 07/10/19 at 14:16; Status DC Sodium Chloride 90 meq/Potassium Chloride 15 meq/ Potassium Phosphate 15 mmol/ Magnesium Sulfate 10 meq/Calcium Gluconate 20 meq/ Multivitamins 10 ml/Chromium/ Copper/Manganese/ Seleni/Zn 0.5 ml/ Total Parenteral Nutrition/Amino Acids/Dextrose/ Fat Emulsion Intravenous 1,200 ml @ 50 mls/hr TPN CONT IV ; Start 07/10/19 at 22:00; Stop 07/10/19 at 14:17; Status DC Sodium Chloride 90 meq/Potassium Chloride 15 meq/ Potassium Phosphate 10 mmol/ Magnesium Sulfate 10 meq/Calcium Gluconate 20 meq/ Multivitamins 10 ml/Chromium/ Copper/Manganese/ Seleni/Zn 0.5 ml/ Total Parenteral Nutrition/Amino Acids/Dextrose/ Fat Emulsion Intravenous 1,200 ml @ 50 mls/hr TPN CONT IV Last administered on 07/10/19at 23:29; Start 07/10/19 at 22:00; Stop 07/11/19 at 21:59; Status DC Sodium Chloride 1,000 ml @ 1,000 mls/hr Q1H PRN IV hypotension; Start 07/11/19 at 07:28; Stop 07/11/19 at 13:27; Status DC Albumin Human 200 ml @ 200 mls/hr 1X ONCE IV Last administered on 07/11/19at 08:51; Start 07/11/19 at 07:30; Stop 07/11/19 at 08:29; Status DC Diphenhydramine HCl (Benadryl) 25 mg 1X PRN PRN IV ITCHING; Start 07/11/19 at 07:30; Stop 07/12/19 at 07:29; Status DC Diphenhydramine HCl (Benadryl) 25 mg 1X PRN PRN IV ITCHING; Start 07/11/19 at 07:30; Stop 07/12/19 at 07:29; Status DC Sodium Chloride 1,000 ml @ 400 mls/hr Q2H30M PRN IV PATENCY; Start 07/11/19 at 07:28; Stop 07/11/19 at 19:27; Status DC Info (PHARMACY MONITORING -- do not chart) 1 each PRN DAILY PRN MC SEE COMMENTS; Start 07/11/19 at 07:30; Stop 07/22/19 at 13:01; Status DC Metronidazole 100 ml @ 100 mls/hr Q6HRS IV Last administered on 07/27/19at 06:26; Start 07/11/19 at 08:30; Stop 07/27/19 at 09:58; Status DC Micafungin Sodium 100 mg/Dextrose 100 ml @ 100 mls/hr Q24H IV Last administered on 08/18/19at 08:18; Start 07/11/19 at 09:00; Stop 08/18/19 at 20:58; Status DC Propofol 0 ml @ As Directed STK-MED ONCE IV ; Start 07/11/19 at 07:53; Stop 07/11/19 at 07:53; Status DC Etomidate (Amidate) 20 mg STK-MED ONCE IV ; Start 07/11/19 at 07:53; Stop 07/11/19 at 07:54; Status DC Midazolam HCl (Versed) 5 mg STK-MED ONCE .ROUTE ; Start 07/11/19 at 07:57; Stop 07/11/19 at 07:57; Status DC Fentanyl Citrate 30 ml @ 0 mls/hr CONT PRN IV SEE PROTOCOL Last administered on 08/05/19at 06:12; Start 07/11/19 at 08:15; Stop 08/05/19 at 09:19; Status DC Artificial Tears (Artificial Tears) 1 drop PRN Q1HR PRN OU DRY EYE, 1st choice; Start 07/11/19 at 08:15; Stop 08/17/19 at 05:31; Status DC Midazolam HCl 50 mg/Sodium Chloride 50 ml @ 0 mls/hr CONT PRN IV SEE PROTOCOL Last administered on 07/14/19at 22:39; Start 07/11/19 at 08:15; Stop 07/16/19 at 15:59; Status DC Etomidate (Amidate) 8 mg 1X ONCE IV Last administered on 07/11/19at 08:33; Start 07/11/19 at 08:30; Stop 07/11/19 at 08:31; Status DC Succinylcholine Chloride (Anectine) 120 mg 1X ONCE IV Last administered on 07/11/19at 08:34; Start 07/11/19 at 08:30; Stop 07/11/19 at 08:31; Status DC Midazolam HCl (Versed) 5 mg 1X ONCE IV ; Start 07/11/19 at 08:30; Stop 07/11/19 at 08:31; Status DC Potassium Chloride 15 meq/ Bicarbonate Dialysis Soln w/ out KCl 5,007.5 ml @ 1,000 mls/ hr Q5H1M IV Last administered on 07/12/19at 11:11; Start 07/11/19 at 12:00; Stop 07/12/19 at 11:15; Status DC Potassium Chloride 15 meq/ Bicarbonate Dialysis Soln w/ out KCl 5,007.5 ml @ 1,000 mls/ hr Q5H1M IV Last administered on 07/12/19at 11:12; Start 07/11/19 at 12:00; Stop 07/12/19 at 11:17; Status DC Potassium Chloride 15 meq/ Bicarbonate Dialysis Soln w/ out KCl 5,007.5 ml @ 1,000 mls/ hr Q5H1M IV Last administered on 07/12/19at 11:11; Start 07/11/19 at 12:00; Stop 07/12/19 at 11:19; Status DC Sodium Chloride 90 meq/Potassium Chloride 15 meq/ Potassium Phosphate 10 mmol/ Magnesium Sulfate 10 meq/Calcium Gluconate 20 meq/ Multivitamins 10 ml/Chromium/ Copper/Manganese/ Seleni/Zn 0.5 ml/ Total Parenteral Nutrition/Amino Acids/Dextrose/ Fat Emulsion Intravenous 1,400 ml @ 58.333 mls/ hr TPN CONT IV Last administered on 07/11/19at 21:42; Start 07/11/19 at 22:00; Stop 07/12/19 at 21:59; Status DC Heparin Sodium (Porcine) (Heparin Sodium) 5,000 unit Q8HRS SQ Last administered on 07/16/19at 05:55; Start 07/11/19 at 15:00; Stop 07/16/19 at 13:28; Status DC Meropenem 500 mg/ Sodium Chloride 50 ml @ 100 mls/hr Q6HRS IV Last administered on 07/13/19at 06:00; Start 07/12/19 at 09:00; Stop 07/13/19 at 07:29; Status DC Potassium Phosphate 20 mmol/ Sodium Chloride 106.6667 ml @ 51.667 m... 1X ONCE IV Last administered on 07/12/19at 11:22; Start 07/12/19 at 10:15; Stop 07/12/19 at 12:18; Status DC Acetaminophen (Tylenol Supp) [address] MILD PAIN / TEMP > 100.3'F Last administered on 09/28/19at 22:16; Start 07/12/19 at 10:30 Potassium Chloride/Water 100 ml @ 100 mls/hr Q1H IV Last administered on 07/12/19at 12:12; Start 07/12/19 at 11:00; Stop 07/12/19 at 12:59; Status DC Potassium Chloride 20 meq/ Bicarbonate Dialysis Soln w/ out KCl 5,010 ml @ 1,000 mls/hr Q5H1M IV Last administered on 07/13/19at 08:48; Start 07/12/19 at 12:00; Stop 07/13/19 at 13:03; Status DC Potassium Chloride 20 meq/ Bicarbonate Dialysis Soln w/ out KCl 5,010 ml @ 1,000 mls/hr Q5H1M IV Last administered on 07/17/19at 14:52; Start 07/12/19 at 11:30; Stop 07/17/19 at 19:59; Status DC Potassium Chloride 20 meq/ Bicarbonate Dialysis Soln w/ out KCl 5,010 ml @ 1,000 mls/hr Q5H1M IV Last administered on 07/17/19at 14:53; Start 07/12/19 at 11:30; Stop 07/17/19 at 19:59; Status DC Sodium Chloride 90 meq/Potassium Chloride 15 meq/ Potassium Phosphate 15 mmol/ Magnesium Sulfate 10 meq/Calcium Gluconate 15 meq/ Multivitamins 10 ml/Chromium/ Copper/Manganese/ Seleni/Zn 0.5 ml/ Total Parenteral Nutrition/Amino Acids/Dextrose/ Fat Emulsion Intravenous 1,400 ml @ 58.333 mls/ hr TPN CONT IV Last administered on 07/12/19at 22:17; Start 07/12/19 at 22:00; Stop 07/13/19 at 21:59; Status DC Cefepime HCl (Maxipime) 2 gm Q12HR IVP Last administered on 07/26/19at 20:56; Start 07/13/19 at 09:00; Stop 07/27/19 at 09:58; Status DC Daptomycin 500 mg/ Sodium Chloride 50 ml @ 100 mls/hr Q48H IV Last administered on 07/29/19at 09:57; Start 07/13/19 at 08:30; Stop 07/29/19 at 10:07; Status DC Lidocaine HCl (Buffered Lidocaine 1%) 3 ml 1X ONCE INJ Last administered on 07/13/19at 10:27; Start 07/13/19 at 10:30; Stop 07/13/19 at 10:31; Status DC Potassium Phosphate 20 mmol/ Sodium Chloride 106.6667 ml @ 51.667 m... 1X ONCE IV Last administered on 07/13/19at 12:51; Start 07/13/19 at 13:00; Stop 07/13/19 at 15:03; Status DC Sodium Chloride 90 meq/Potassium Chloride 15 meq/ Potassium Phosphate 18 mmol/ Magnesium Sulfate 8 meq/Calcium Gluconate 15 meq/ Multivitamins 10 ml/Chromium/ Copper/Manganese/ Seleni/Zn 0.5 ml/ Total Parenteral Nutrition/Amino Acids/Dextrose/ Fat Emulsion Intravenous 1,400 ml @ 58.333 mls/ hr TPN CONT IV Last administered on 07/13/19at 22:16; Start 07/13/19 at 22:00; Stop 07/14/19 at 21:59; Status DC Potassium Chloride 20 meq/ Bicarbonate Dialysis Soln w/ out KCl 5,010 ml @ 1,000 mls/hr Q5H1M IV Last administered on 07/17/19at 14:54; Start 07/13/19 at 16:00; Stop 07/17/19 at 19:59; Status DC Multi-Ingred Cream/Lotion/Oil/ Oint (Artificial Tears Eye Ointment) 1 ramu PRN Q1HR PRN OU DRY EYE, 2nd choice Last administered on 08/01/19at 08:19; Start 07/13/19 at 17:30; Stop 09/21/19 at 14:39; Status DC Sodium Chloride 90 meq/Potassium Chloride 15 meq/ Potassium Phosphate 18 mmol/ Magnesium Sulfate 8 meq/Calcium Gluconate 15 meq/ Multivitamins 10 ml/Chromium/ Copper/Manganese/ Seleni/Zn 0.5 ml/ Total Parenteral Nutrition/Amino Acids/Dextrose/ Fat Emulsion Intravenous 1,400 ml @ 58.333 mls/ hr TPN CONT IV Last administered on 07/14/19at 22:00; Start 07/14/19 at 22:00; Stop 07/15/19 at 21:59; Status DC Albumin Human 500 ml @ 125 mls/hr 1X ONCE IV ; Start 07/14/19 at 14:15; Stop 07/14/19 at 18:14; Status DC Sodium Chloride 90 meq/Potassium Chloride 15 meq/ Potassium Phosphate 18 mmol/ Magnesium Sulfate 8 meq/Calcium Gluconate 15 meq/ Multivitamins 10 ml/Chromium/ Copper/Manganese/ Seleni/Zn 0.5 ml/ Insulin Human Regular 10 unit/ Total Parenteral Nutrition/Amino Acids/Dextrose/ Fat Emulsion Intravenous 1,400 ml @ 58.333 mls/ hr TPN CONT IV Last administered on 07/15/19at 21:43; Start 07/15/19 at 22:00; Stop 07/16/19 at 21:59; Status DC Lidocaine HCl (Buffered Lidocaine 1%) 3 ml STK-MED ONCE .ROUTE ; Start 07/13/19 at 10:00; Stop 07/15/19 at 13:57; Status DC Midazolam HCl 100 mg/Sodium Chloride 100 ml @ 7 mls/hr CONT PRN IV SEE PROTOCOL Last administered on 07/27/19at 15:35; Start 07/16/19 at 16:00; Stop 09/21/19 at 14:38; Status DC Sodium Chloride 90 meq/Potassium Chloride 15 meq/ Potassium Phosphate 18 mmol/ Magnesium Sulfate 8 meq/Calcium Gluconate 15 meq/ Multivitamins 10 ml/Chromium/ Copper/Manganese/ Seleni/Zn 0.5 ml/ Insulin Human Regular 15 unit/ Total Parenteral Nutrition/Amino Acids/Dextrose/ Fat Emulsion Intravenous 1,400 ml @ 58.333 mls/ hr TPN CONT IV Last administered on 07/16/19at 20:34; Start 07/16/19 at 22:00; Stop 07/17/19 at 21:59; Status DC Info (Icu Electrolyte Protocol) 1 ea CONT PRN PRN MC PER PROTOCOL; Start 07/17/19 at 13:15 Sodium Chloride 90 meq/Potassium Chloride 15 meq/ Potassium Phosphate 18 mmol/ Magnesium Sulfate 8 meq/Calcium Gluconate 15 meq/ Multivitamins 10 ml/Chromium/ Copper/Manganese/ Seleni/Zn 0.5 ml/ Insulin Human Regular 15 unit/ Total Parenteral Nutrition/Amino Acids/Dextrose/ Fat Emulsion Intravenous 1,400 ml @ 58.333 mls/ hr TPN CONT IV Last administered on 07/17/19at 22:05; Start 07/17/19 at 22:00; Stop 07/18/19 at 21:59; Status DC Potassium Chloride 15 meq/ Bicarbonate Dialysis Soln w/ out KCl 5,007.5 ml @ 1,000 mls/ hr Q5H1M IV Last administered on 07/20/19at 18:14; Start 07/17/19 at 20:00; Stop 07/21/19 at 13:08; Status DC Potassium Chloride 15 meq/ Bicarbonate Dialysis Soln w/ out KCl 5,007.5 ml @ 1,000 mls/ hr Q5H1M IV Last administered on 07/20/19at 18:14; Start 07/17/19 at 20:00; Stop 07/21/19 at 13:08; Status DC Potassium Chloride 15 meq/ Bicarbonate Dialysis Soln w/ out KCl 5,007.5 ml @ 1,000 mls/ hr Q5H1M IV Last administered on 07/20/19at 18:14; Start 07/17/19 at 20:00; Stop 07/21/19 at 13:08; Status DC Iohexol (Omnipaque 240 Mg/ml) 30 ml 1X ONCE PO Last administered on 07/18/19at 11:30; Start 07/18/19 at 11:30; Stop 07/18/19 at 11:33; Status DC Info (CONTRAST GIVEN -- Rx MONITORING) 1 each PRN DAILY PRN MC SEE COMMENTS; Start 07/18/19 at 11:45; Stop 07/20/19 at 11:44; Status DC Sodium Chloride 90 meq/Potassium Chloride 15 meq/ Potassium Phosphate 18 mmol/ Magnesium Sulfate 8 meq/Calcium Gluconate 15 meq/ Multivitamins 10 ml/Chromium/ Copper/Manganese/ Seleni/Zn 0.5 ml/ Insulin Human Regular 15 unit/ Total Parenteral Nutrition/Amino Acids/Dextrose/ Fat Emulsion Intravenous 1,400 ml @ 58.333 mls/ hr TPN CONT IV Last administered on 07/18/19at 21:47; Start 07/18/19 at 22:00; Stop 07/19/19 at 21:59; Status DC Sodium Chloride 90 meq/Potassium Chloride 15 meq/ Potassium Phosphate 18 mmol/ Magnesium Sulfate 8 meq/Calcium Gluconate 15 meq/ Multivitamins 10 ml/Chromium/ Copper/Manganese/ Seleni/Zn 0.5 ml/ Insulin Human Regular 20 unit/ Total Parenteral Nutrition/Amino Acids/Dextrose/ Fat Emulsion Intravenous 1,400 ml @ 58.333 mls/ hr TPN CONT IV Last administered on 07/19/19at 21:36; Start 07/19/19 at 22:00; Stop 07/20/19 at 21:59; Status DC Alteplase, Recombinant (Cathflo For Central Catheter Clearance) 1 mg 1X ONCE INT CAT Last administered on 07/19/19at 20:03; Start 07/19/19 at 19:30; Stop 07/19/19 at 19:46; Status DC Alteplase, Recombinant (Cathflo For Central Catheter Clearance) 1 mg 1X ONCE INT CAT Last administered on 07/19/19at 22:05; Start 07/19/19 at 22:00; Stop 07/19/19 at 22:01; Status DC Sodium Chloride 90 meq/Potassium Chloride 15 meq/ Potassium Phosphate 18 mmol/ Magnesium Sulfate 8 meq/Calcium Gluconate 15 meq/ Multivitamins 10 ml/Chromium/ Copper/Manganese/ Seleni/Zn 0.5 ml/ Insulin Human Regular 20 unit/ Total Parenteral Nutrition/Amino Acids/Dextrose/ Fat Emulsion Intravenous 1,400 ml @ 58.333 mls/ hr TPN CONT IV Last administered on 07/20/19at 21:30; Start 07/20/19 at 22:00; Stop 07/21/19 at 21:59; Status DC Dexmedetomidine HCl 400 mcg/ Sodium Chloride 100 ml @ 0 mls/hr CONT PRN IV ANXIETY / AGITATION Last administered on 09/17/19at 12:57; Start 07/21/19 at 08:15; Stop 09/17/19 at 18:31; Status DC Sodium Chloride 500 ml @ 500 mls/hr 1X PRN PRN IV ELEVATED BP, SEE COMMENTS; Start 07/21/19 at 08:15 Atropine Sulfate (ATROPINE 0.5mg SYRINGE) 0.5 mg PRN Q5MIN PRN IV SEE COMMENTS; Start 07/21/19 at 08:15 Furosemide (Lasix) 20 mg 1X ONCE IVP Last administered on 07/21/19at 08:19; Start 07/21/19 at 08:15; Stop 07/21/19 at 08:16; Status DC Lidocaine HCl (Buffered Lidocaine 1%) 3 ml STK-MED ONCE .ROUTE ; Start 07/21/19 at 08:39; Stop 07/21/19 at 08:39; Status DC Lidocaine HCl (Buffered Lidocaine 1%) 6 ml 1X ONCE INJ Last administered on 07/21/19at 09:05; Start 07/21/19 at 09:00; Stop 07/21/19 at 09:06; Status DC Sodium Chloride 90 meq/Potassium Chloride 15 meq/ Potassium Phosphate 18 mmol/ Magnesium Sulfate 8 meq/Calcium Gluconate 15 meq/ Multivitamins 10 ml/Chromium/ Copper/Manganese/ Seleni/Zn 0.5 ml/ Insulin Human Regular 20 unit/ Total Parenteral Nutrition/Amino Acids/Dextrose/ Fat Emulsion Intravenous 1,400 ml @ 58.333 mls/ hr TPN CONT IV Last administered on 07/21/19at 22:45; Start 07/21/19 at 22:00; Stop 07/22/19 at 21:59; Status DC Sodium Chloride 1,000 ml @ 1,000 mls/hr Q1H PRN IV hypotension; Start 07/22/19 at 07:30; Stop 07/22/19 at 13:29; Status DC Albumin Human 200 ml @ 200 mls/hr 1X PRN PRN IV Hypotension Last administered on 07/22/19at 09:36; Start 07/22/19 at 07:30; Stop 07/22/19 at 13:29; Status DC Sodium Chloride (Normal Saline Flush) 10 ml 1X PRN PRN IV AP catheter pack; Start 07/22/19 at 07:30; Stop 07/22/19 at 21:29; Status DC Sodium Chloride (Normal Saline Flush) 10 ml 1X PRN PRN IV [employer] catheter pack; Start 07/22/19 at 07:30; Stop 07/23/19 at 07:29; Status DC Sodium Chloride 1,000 ml @ 400 mls/hr Q2H30M PRN IV PATENCY; Start 07/22/19 at 07:30; Stop 07/22/19 at 19:29; Status DC Info (PHARMACY MONITORING -- do not chart) 1 each PRN DAILY PRN MC SEE COMMENTS; Start 07/22/19 at 07:30; Stop 07/22/19 at 13:02; Status DC Info (PHARMACY MONITORING -- do not chart) 1 each PRN DAILY PRN MC SEE COMMENTS; Start 07/22/19 at 07:30; Stop 07/24/19 at 12:45; Status DC Sodium Chloride 90 meq/Potassium Chloride 15 meq/ Potassium Phosphate 10 mmol/ Magnesium Sulfate 8 meq/Calcium Gluconate 15 meq/ Multivitamins 10 ml/Chromium/ Copper/Manganese/ Seleni/Zn 0.5 ml/ Insulin Human Regular 25 unit/ Total Par enteral Nutrition/Amino Acids/Dextrose/ Fat Emulsion Intravenous 1,400 ml @ 58.333 mls/ hr TPN CONT IV Last administered on 07/22/19at 22:19; Start 07/22/19 at 22:00; Stop 07/23/19 at 21:59; Status DC Heparin Sodium (Porcine) (Heparin Sodium) 5,000 unit Q12HR SQ Last administered on 08/14/19at 08:59; Start 07/22/19 at 21:00; Stop 08/14/19 at 10:05; Status DC Ondansetron HCl (Zofran) 4 mg PRN Q6HRS PRN IV NAUSEA/VOMITING; Start 07/25/19 at 07:00; Stop 07/26/19 at 06:59; Status DC Fentanyl Citrate (Fentanyl 2ml Vial) 25 mcg PRN Q5MIN PRN IV MILD PAIN 1-3; Start 07/25/19 at 07:00; Stop 07/26/19 at 06:59; Status DC Fentanyl Citrate (Fentanyl 2ml Vial) 50 mcg PRN Q5MIN PRN IV MODERATE TO SEVERE PAIN; Start 07/25/19 at 07:00; Stop 07/26/19 at 06:59; Status DC Ringer's Solution 1,000 ml @ 30 mls/hr Q24H IV ; Start 07/25/19 at 07:00; Stop 07/25/19 at 18:59; Status DC Lidocaine HCl (Xylocaine-Mpf 1% 2ml Vial) 2 ml PRN 1X PRN ID PRIOR TO IV START; Start 07/25/19 at 07:00; Stop 07/26/19 at 06:59; Status DC Prochlorperazine Edisylate (Compazine) 5 mg PACU PRN PRN IV NAUSEA, MRX1; Start 07/25/19 at 07:00; Stop 07/26/19 at 06:59; Status DC Sodium Chloride 1,000 ml @ 1,000 mls/hr Q1H PRN IV hypotension; Start 07/23/19 at 09:10; Stop 07/23/19 at 15:09; Status DC Albumin Human 200 ml @ 200 mls/hr 1X PRN PRN IV Hypotension Last administered on 07/23/19at 10:10; Start 07/23/19 at 09:15; Stop 07/23/19 at 15:14; Status DC Sodium Chloride 1,000 ml @ 400 mls/hr Q2H30M PRN IV PATENCY; Start 07/23/19 at 09:10; Stop 07/23/19 at 21:09; Status DC Info (PHARMACY MONITORING -- do not chart) 1 each PRN DAILY PRN MC SEE COMMENTS; Start 07/23/19 at 09:15; Stop 07/24/19 at 12:45; Status DC Info (PHARMACY MONITORING -- do not chart) 1 each PRN DAILY PRN MC SEE COMMENTS; Start 07/23/19 at 09:15; Stop 07/24/19 at 12:45; Status DC Sodium Chloride 90 meq/Potassium Chloride 15 meq/ Potassium Phosphate 10 mmol/ Magnesium Sulfate 8 meq/Calcium Gluconate 15 meq/ Multivitamins 10 ml/Chromium/ Copper/Manganese/ Seleni/Zn 0.5 ml/ Insulin Human Regular 25 unit/ Total Parenteral Nutrition/Amino Acids/Dextrose/ Fat Emulsion Intravenous 1,400 ml @ 58.333 mls/ hr TPN CONT IV Last administered on 07/23/19at 22:10; Start 07/23/19 at 22:00; Stop 07/24/19 at 21:59; Status DC Magnesium Sulfate 50 ml @ 25 mls/hr PRN DAILY PRN IV for Mag < 1.7 on am labs Last administered on 08/08/19at 17:27; Start 07/24/19 at 09:15 Sodium Chloride 90 meq/Potassium Chloride 15 meq/ Potassium Phosphate 10 mmol/ Magnesium Sulfate 8 meq/Calcium Gluconate 15 meq/ Multivitamins 10 ml/Chromium/ Copper/Manganese/ Seleni/Zn 0.5 ml/ Insulin Human Regular 25 unit/ Total Parenteral Nutrition/Amino Acids/Dextrose/ Fat Emulsion Intravenous 1,400 ml @ 58.333 mls/ hr TPN CONT IV Last administered on 07/24/19at 21:20; Start 07/24/19 at 22:00; Stop 07/25/19 at 21:59; Status DC Sodium Chloride 1,000 ml @ 1,000 mls/hr Q1H PRN IV hypotension; Start 07/24/19 at 12:23; Stop 07/24/19 at 18:22; Status DC Albumin Human 200 ml @ 200 mls/hr 1X ONCE IV Last administered on 07/24/19at 13:34; Start 07/24/19 at 12:30; Stop 07/24/19 at 13:29; Status DC Diphenhydramine HCl (Benadryl) 25 mg 1X PRN PRN IV ITCHING; Start 07/24/19 at 12:30; Stop 07/25/19 at 12:29; Status DC Diphenhydramine HCl (Benadryl) 25 mg 1X PRN PRN IV ITCHING; Start 07/24/19 at 12:30; Stop 07/25/19 at 12:29; Status DC Info (PHARMACY MONITORING -- do not chart) 1 each PRN DAILY PRN MC SEE COMMENTS; Start 07/24/19 at 12:30; Status Cancel Bupivacaine HCl/ Epinephrine Bitart (Sensorcain-Epi 0.5%-1:[id number] Mpf) 30 ml STK-MED ONCE .ROUTE Last administered on 07/25/19at 11:44; Start 07/25/19 at 11:00; Stop 07/25/19 at 11:01; Status DC Cellulose (Surgicel Fibrillar 1x2) 1 each STK-MED ONCE .ROUTE ; Start 07/25/19 at 11:00; Stop 07/25/19 at 11:01; Status DC Sodium Chloride 90 meq/Potassium Chloride 15 meq/ Potassium Phosphate 10 mmol/ Magnesium Sulfate 12 meq/Calcium Gluconate 15 meq/ Multivitamins 10 ml/Chromium/ Copper/Manganese/ Seleni/Zn 0.5 ml/ Insulin Human Regular 25 unit/ Total Parenteral Nutrition/Amino Acids/Dextrose/ Fat Emulsion Intravenous 1,400 ml @ 58.333 mls/ hr TPN CONT IV Last administered on 07/25/19at 22:24; Start 07/25/19 at 22:00; Stop 07/26/19 at 21:59; Status DC Propofol 20 ml @ As Directed STK-MED ONCE IV ; Start 07/25/19 at 11:07; Stop 07/25/19 at 11:07; Status DC Cellulose (Surgicel Hemostat 4x8) 1 each STK-MED ONCE .ROUTE Last administered on 07/25/19at 11:44; Start 07/25/19 at 11:55; Stop 07/25/19 at 11:56; Status DC Sevoflurane (Ultane) 60 ml STK-MED ONCE IH ; Start 07/25/19 at 12:46; Stop 07/25/19 at 12:46; Status DC Sodium Chloride 1,000 ml @ 1,000 mls/hr Q1H PRN IV hypotension; Start 07/25/19 at 13:51; Stop 07/25/19 at 19:50; Status DC Albumin Human 200 ml @ 200 mls/hr 1X PRN PRN IV Hypotension Last administered on 07/25/19at 14:51; Start 07/25/19 at 14:00; Stop 07/25/19 at 19:59; Status DC Diphenhydramine HCl (Benadryl) 25 mg 1X PRN PRN IV ITCHING; Start 07/25/19 at 14:00; Stop 07/26/19 at 13:59; Status DC Diphenhydramine HCl (Benadryl) 25 mg 1X PRN PRN IV ITCHING; Start 07/25/19 at 14:00; Stop 07/26/19 at 13:59; Status DC Sodium Chloride 1,000 ml @ 400 mls/hr Q2H30M PRN IV PATENCY; Start 07/25/19 at 13:51; Stop 07/26/19 at 01:50; Status DC Info (PHARMACY MONITORING -- do not chart) 1 each PRN DAILY PRN MC SEE COMMENTS; Start 07/25/19 at 14:00; Stop 07/28/19 at 08:16; Status DC Heparin Sodium (Porcine) (Hep Lock Adult) 500 unit STK-MED ONCE IVP ; Start 07/26/19 at 09:29; Stop 07/26/19 at 09:30; Status DC Sodium Chloride 1,000 ml @ 1,000 mls/hr Q1H PRN IV hypotension; Start 07/26/19 at 10:43; Stop 07/26/19 at 16:42; Status DC Sodium Chloride 1,000 ml @ 400 mls/hr Q2H30M PRN IV PATENCY; Start 07/26/19 at 10:43; Stop 07/26/19 at 22:42; Status DC Info (PHARMACY MONITORING -- do not chart) 1 each PRN DAILY PRN MC SEE COMMENTS; Start 07/26/19 at 10:45; Status UNV Info (PHARMACY MONITORING -- do not chart) 1 each PRN DAILY PRN MC SEE COMMENTS; Start 07/26/19 at 10:45; Status UNV Sodium Chloride 90 meq/Potassium Chloride 15 meq/ Magnesium Sulfate 12 meq/Calcium Gluconate 15 meq/ Multivitamins 10 ml/Chromium/ Copper/Manganese/ Seleni/Zn 0.5 ml/ Insulin Human Regular 25 unit/ Total Parenteral Nutrition/Amino Acids/Dextrose/ Fat Emulsion Intravenous 1,400 ml @ 58.333 mls/ hr TPN CONT IV Last administered on 07/26/19at 22:13; Start 07/26/19 at 22:00; Stop 07/27/19 at 21:59; Status DC Sodium Chloride 1,000 ml @ 1,000 mls/hr Q1H PRN IV hypotension; Start 07/27/19 at 07:50; Stop 07/27/19 at 13:49; Status DC Albumin Human 200 ml @ 200 mls/hr 1X ONCE IV ; Start 07/27/19 at 08:00; Stop 07/27/19 at 08:53; Status DC Diphenhydramine HCl (Benadryl) 25 mg 1X PRN PRN IV ITCHING; Start 07/27/19 at 08:00; Stop 07/28/19 at 07:59; Status DC Diphenhydramine HCl (Benadryl) 25 mg 1X PRN PRN IV ITCHING; Start 07/27/19 at 08:00; Stop 07/28/19 at 07:59; Status DC Info (PHARMACY MONITORING -- do not chart) 1 each PRN DAILY PRN MC SEE C OMMENTS; Start 07/27/19 at 08:00; Stop 07/28/19 at 08:16; Status DC Albumin Human 50 ml @ 50 mls/hr 1X ONCE IV ; Start 07/27/19 at 08:53; Stop 07/27/19 at 08:56; Status DC Albumin Human 200 ml @ 50 mls/hr PRN 1X PRN IV HYPOTENSION Last administered on 08/02/19at 11:54; Start 07/27/19 at 09:00; Stop 09/08/19 at 11:14; Status DC Meropenem 500 mg/ Sodium Chloride 50 ml @ 100 mls/hr Q12H IV Last administered on 08/16/19at 10:45; Start 07/27/19 at 10:00; Stop 08/16/19 at 12:37; Status DC Sodium Chloride 90 meq/Magnesium Sulfate 12 meq/ Calcium Gluconate 15 meq/ Multivitamins 10 ml/Chromium/ Copper/Manganese/ Seleni/Zn 0.5 ml/ Insulin Human Regular 25 unit/ Total Parenteral Nutrition/Amino Acids/Dextrose/ Fat Emulsion Intravenous 1,400 ml @ 58.333 mls/ hr TPN CONT IV Last administered on 07/27/19at 21:41; Start 07/27/19 at 22:00; Stop 07/28/19 at 21:59; Status DC Sodium Chloride 1,000 ml @ 1,000 mls/hr Q1H PRN IV hypotension; Start 07/28/19 at 07:58; Stop 07/28/19 at 13:57; Status DC Albumin Human 200 ml @ 200 mls/hr 1X PRN PRN IV Hypotension Last administered on 07/28/19at 09:30; Start 07/28/19 at 08:00; Stop 07/28/19 at 13:59; Status DC Sodium Chloride 1,000 ml @ 400 mls/hr Q2H30M PRN IV PATENCY; Start 07/28/19 at 07:58; Stop 07/28/19 at 19:57; Status DC Info (PHARMACY MONITORING -- do not chart) 1 each PRN DAILY PRN MC SEE COMMENTS; Start 07/28/19 at 08:00; Status Cancel Info (PHARMACY MONITORING -- do not chart) 1 each PRN DAILY PRN MC SEE COMMENTS; Start 07/28/19 at 08:15; Status UNV Sodium Chloride 90 meq/Potassium Phosphate 5 mmol/ Magnesium Sulfate 12 meq/Calcium Gluconate 15 meq/ Multivitamins 10 ml/Chromium/ Copper/Manganese/ Seleni/Zn 0.5 ml/ Insulin Human Regular 30 unit/ Total Parenteral Nutrition/Amino Acids/Dextrose/ Fat Emulsion Intravenous 1,400 ml @ 58.333 mls/ hr TPN CONT IV Last administered on 07/28/19at 22:08; Start 07/28/19 at 22:00; Stop 07/29/19 at 21:59; Status DC Linezolid/Dextrose 300 ml @ 300 mls/hr Q12HR IV Last administered on 08/08/19at 20:40; Start 07/29/19 at 11:00; Stop 08/09/19 at 08:10; Status DC Sodium Chloride 90 meq/Potassium Phosphate 15 mmol/ Magnesium Sulfate 12 meq/Calcium Gluconate 15 meq/ Multivitamins 10 ml/Chromium/ Copper/Manganese/ Seleni/Zn 0.5 ml/ Insulin Human Regular 30 unit/ Total Parenteral Nutrition/Amino Acids/Dextrose/ Fat Emulsion Intravenous 1,400 ml @ 58.333 mls/ hr TPN CONT IV Last administered on 07/29/19at 21:49; Start 07/29/19 at 22:00; Stop 07/30/19 at 21:59; Status DC Sodium Chloride 90 meq/Potassium Phosphate 15 mmol/ Magnesium Sulfate 12 meq/Ca lcium Gluconate 15 meq/ Multivitamins 10 ml/Chromium/ Copper/Manganese/ Seleni/Zn 0.5 ml/ Insulin Human Regular 40 unit/ Total Parenteral Nutrition/Amino Acids/Dextrose/ Fat Emulsion Intravenous 1,400 ml @ 58.333 mls/ hr TPN CONT IV Last administered on 07/30/19at 21:21; Start 07/30/19 at 22:00; Stop 07/31/19 at 21:59; Status DC Sodium Chloride 1,000 ml @ 1,000 mls/hr Q1H PRN IV hypotension; Start 07/30/19 at 13:26; Stop 07/30/19 at 19:25; Status DC Albumin Human 200 ml @ 200 mls/hr 1X PRN PRN IV Hypotension Last administered on 07/30/19at 15:00; Start 07/30/19 at 13:30; Stop 07/30/19 at 19:29; Status DC Sodium Chloride (Normal Saline Flush) 10 ml 1X PRN PRN IV AP catheter pack; Start 07/30/19 at 13:30; Stop 07/31/19 at 13:29; Status DC Sodium Chloride (Normal Saline Flush) 10 ml 1X PRN PRN IV [employer] catheter pack; Start 07/30/19 at 13:30; Stop 07/31/19 at 13:29; Status DC Sodium Chloride 1,000 ml @ 400 mls/hr Q2H30M PRN IV PATENCY; Start 07/30/19 at 13:26; Stop 07/31/19 at 01:25; Status DC Info (PHARMACY MONITORING -- do not chart) 1 each PRN DAILY PRN MC SEE COMMENTS; Start 07/30/19 at 13:30; Stop 07/30/19 at 13:33; Status DC Info (PHARMACY MONITORING -- do not chart) 1 each PRN DAILY PRN MC SEE COMMENTS; Start 07/30/19 at 13:30; Stop 07/30/19 at 13:34; Status DC Sodium Chloride 90 meq/Potassium Phosphate 19 mmol/ Magnesium Sulfate 12 meq/Calcium Gluconate 15 meq/ Multivitamins 10 ml/Chromium/ Copper/Manganese/ Seleni/Zn 0.5 ml/ Insulin Human Regular 40 unit/ Total Parenteral Nutrition/Amino Acids/Dextrose/ Fat Emulsion Intravenous 1,400 ml @ 58.333 mls/ hr TPN CONT IV Last administered on 07/31/19at 21:54; Start 07/31/19 at 22:00; Stop 08/01/19 at 21:59; Status DC Sodium Chloride 1,000 ml @ 1,000 mls/hr Q1H PRN IV hypotension; Start 08/01/19 at 09:35; Stop 08/01/19 at 15:34; Status DC Albumin Human 200 ml @ 200 mls/hr 1X PRN PRN IV Hypotension; Start 08/01/19 at 09:45; Stop 08/01/19 at 15:44; Status DC Diphenhydramine HCl (Benadryl) 25 mg 1X PRN PRN IV ITCHING; Start 08/01/19 at 09:45; Stop 08/02/19 at 09:44; Status DC Diphenhydramine HCl (Benadryl) 25 mg 1X PRN PRN IV ITCHING; Start 08/01/19 at 09:45; Stop 08/02/19 at 09:44; Status DC Sodium Chloride 1,000 ml @ 400 mls/hr Q2H30M PRN IV PATENCY; Start 08/01/19 at 09:35; Stop 08/01/19 at 21:34; Status DC Info (PHARMACY MONITORING -- do not chart) 1 each PRN DAILY PRN MC SEE COMMENTS; Start 08/01/19 at 09:45; Status Cancel Sodium Chloride 100 meq/Potassium Phosphate 19 mmol/ Magnesium Sulfate 12 meq/Calcium Gluconate 15 meq/ Multivitamins 10 ml/Chromium/ Copper/Manganese/ Seleni/Zn 0.5 ml/ Insulin Human Regular 40 unit/ Potassium Chloride 20 meq/ Total Parenteral Nutrition/Amino Acids/Dextrose/ Fat Emulsion Intravenous 1,400 ml @ 58.333 mls/ hr TPN CONT IV Last administered on 08/01/19at 22:02; Start 08/01/19 at 22:00; Stop 08/02/19 at 21:59; Status DC Furosemide (Lasix) 40 mg 1X ONCE IVP Last administered on 08/01/19at 14:39; Start 08/01/19 at 14:30; Stop 08/01/19 at 14:31; Status DC Metronidazole 100 ml @ 100 mls/hr Q8HRS IV Last administered on 08/09/19at 06:04; Start 08/02/19 at 10:00; Stop 08/09/19 at 08:10; Status DC Sodium Chloride 1,000 ml @ 1,000 mls/hr Q1H PRN IV hypotension; Start 08/02/19 at 08:00; Stop 08/02/19 at 13:59; Status DC Albumin Human 200 ml @ 200 mls/hr 1X PRN PRN IV Hypotension; Start 08/02/19 at 08:00; Stop 08/02/19 at 13:59; Status DC Sodium Chloride 1,000 ml @ 400 mls/hr Q2H30M PRN IV PATENCY; Start 08/02/19 at 08:00; Stop 08/02/19 at 19:59; Status DC Info (PHARMACY MONITORING -- do not chart) 1 each PRN DAILY PRN MC SEE COMMENTS; Start 08/02/19 at 11:30; Status UNV Info (PHARMACY MONITORING -- do not chart) 1 each PRN DAILY PRN MC SEE COMMENTS; Start 08/02/19 at 11:30; Stop 08/04/19 at 12:13; Status DC Sodium Chloride 100 meq/Potassium Phosphate 19 mmol/ Magnesium Sulfate 12 meq/Calcium Gluconate 15 meq/ Multivitamins 10 ml/Chromium/ Copper/Manganese/ Seleni/Zn 0.5 ml/ Insulin Human Regular 40 unit/ Potassium Chloride 20 meq/ Total Parenteral Nutrition/Amino Acids/Dextrose/ Fat Emulsion Intravenous 1,400 ml @ 58.333 mls/ hr TPN CONT IV Last administered on 08/02/19at 21:52; Start 08/02/19 at 22:00; Stop 08/03/19 at 21:59; Status DC Sodium Chloride (Normal Saline Flush) 10 ml QSHIFT PRN IV AFTER MEDS AND BLOOD DRAWS; Start 08/02/19 at 15:00; Stop 08/30/19 at 11:27; Status DC Sodium Chloride (Normal Saline Flush) 10 ml PRN Q5MIN PRN IV AFTER MEDS AND BLOOD DRAWS; Start 08/02/19 at 15:00 Sodium Chloride (Normal Saline Flush) 20 ml PRN Q5MIN PRN IV AFTER MEDS AND BLOOD DRAWS; Start 08/02/19 at 15:00 Sodium Chloride 100 meq/Potassium Phosphate 19 mmol/ Magnesium Sulfate 12 meq/Calcium Gluconate 15 meq/ Multivitamins 10 ml/Chromium/ Copper/Manganese/ Seleni/Zn 0.5 ml/ Insulin Human Regular 40 unit/ Potassium Chloride 20 meq/ Total Parenteral Nutrition/Amino Acids/Dextrose/ Fat Emulsion Intravenous 1,400 ml @ 58.333 mls/ hr TPN CONT IV Last administered on 08/03/19at 21:20; Start 08/03/19 at 22:00; Stop 08/04/19 at 21:59; Status DC Lidocaine HCl (Buffered Lidocaine 1%) 3 ml STK-MED ONCE .ROUTE ; Start 08/03/19 at 13:16; Stop 08/03/19 at 13:16; Status DC Lidocaine HCl (Buffered Lidocaine 1%) 6 ml 1X ONCE INJ Last administered on 08/03/19at 13:45; Start 08/03/19 at 13:30; Stop 08/03/19 at 13:31; Status DC Albumin Human 100 ml @ 100 mls/hr 1X ONCE IV Last administered on 08/03/19at 15:41; Start 08/03/19 at 15:00; Stop 08/03/19 at 15:59; Status DC Albumin Human 50 ml @ 50 mls/hr 1X ONCE IV Last administered on 08/03/19at 15:00; Start 08/03/19 at 15:00; Stop 08/03/19 at 15:59; Status DC Info (PHARMACY MONITORING -- do not chart) 1 each PRN DAILY PRN MC SEE COMMENTS; Start 08/04/19 at 11:30; Status Cancel Info (PHARMACY MONITORING -- do not chart) 1 each PRN DAILY PRN MC SEE COMMENTS; Start 08/04/19 at 11:30; Status UNV Sodium Chloride 100 meq/Potassium Phosphate 10 mmol/ Magnesium Sulfate 12 meq/Calcium Gluconate 15 meq/ Multivitamins 10 ml/Chromium/ Copper/Manganese/ Seleni/Zn 0.5 ml/ Insulin Human Regular 35 unit/ Potassium Chloride 20 meq/ Total Parenteral Nutrition/Amino Acids/Dextrose/ Fat Emulsion Intravenous 1,400 ml @ 58.333 mls/ hr TPN CONT IV Last administered on 08/04/19at 22:10; Start 08/04/19 at 22:00; Stop 08/05/19 at 21:59; Status DC Sodium Chloride 100 meq/Potassium Phosphate 5 mmol/ Magnesium Sulfate 12 meq/Calcium Gluconate 15 meq/ Multivitamins 10 ml/Chromium/ Copper/Manganese/ Seleni/Zn 0.5 ml/ Insulin Human Regular 35 unit/ Potassium Chloride 20 meq/ Total Parenteral Nutrition/Amino Acids/Dextrose/ Fat Emulsion Intravenous 1,400 ml @ 58.333 mls/ hr TPN CONT IV Last administered on 08/05/19at 22:59; Start 08/05/19 at 22:00; Stop 08/06/19 at 21:59; Status DC Sodium Chloride 1,000 ml @ 1,000 mls/hr Q1H PRN IV hypotension; Start 08/06/19 at 08:27; Stop 08/06/19 at 14:26; Status DC Albumin Human 200 ml @ 200 mls/hr 1X PRN PRN IV Hypotension Last administered on 08/06/19at 09:18; Start 08/06/19 at 08:30; Stop 08/06/19 at 14:29; Status DC Sodium Chloride 1,000 ml @ 400 mls/hr Q2H30M PRN IV PATENCY; Start 08/06/19 at 08:27; Stop 08/06/19 at 20:26; Status DC Info (PHARMACY MONITORING -- do not chart) 1 each PRN DAILY PRN MC SEE COMMENTS; Start 08/06/19 at 08:30; Status Cancel Info (PHARMACY MONITORING -- do not chart) 1 each PRN DAILY PRN MC SEE COMMENTS; Start 08/06/19 at 08:30; Stop 08/14/19 at 13:10; Status DC Sodium Chloride 100 meq/Potassium Chloride 40 meq/ Magnesium Sulfate 15 meq/Calcium Gluconate 15 meq/ Multivitamins 10 ml/Chromium/ Copper/Manganese/ Seleni/Zn 0.5 ml/ Insulin Human Regular 35 unit/ Total Parenteral Nutrition/Amino Acids/Dextrose/ Fat Emulsion Intravenous 1,400 ml @ 58.333 mls/ hr TPN CONT IV Last administered on 08/06/19at 22:00; Start 08/06/19 at 22:00; Stop 08/07/19 at 21:59; Status DC Potassium Chloride/Water 100 ml @ 100 mls/hr 1X ONCE IV Last administered on 08/06/19at 17:28; Start 08/06/19 at 14:45; Stop 08/06/19 at 15:44; Status DC Sodium Chloride 100 meq/Potassium Chloride 40 meq/ Magnesium Sulfate 15 meq/Ca lcium Gluconate 15 meq/ Multivitamins 10 ml/Chromium/ Copper/Manganese/ Seleni/Zn 0.5 ml/ Insulin Human Regular 35 unit/ Total Parenteral Nutrition/Amino Acids/Dextrose/ Fat Emulsion Intravenous 1,400 ml @ 58.333 mls/ hr TPN CONT IV Last administered on 08/07/19at 22:46; Start 08/07/19 at 22:00; Stop 08/08/19 at 21:59; Status DC Sodium Chloride 100 meq/Potassium Chloride 40 meq/ Magnesium Sulfate 20 meq/Calcium Gluconate 15 meq/ Multivitamins 10 ml/Chromium/ Copper/Manganese/ Seleni/Zn 0.5 ml/ Insulin Human Regular 35 unit/ Total Parenteral Nutrition/Amino Acids/Dextrose/ Fat Emulsion Intravenous 1,400 ml @ 58.333 mls/ hr TPN CONT IV Last administered on 08/08/19at 22:31; Start 08/08/19 at 22:00; Stop 08/09/19 at 21:59; Status DC Fentanyl Citrate (Fentanyl 2ml Vial) 50 mcg PRN Q2HR PRN IVP PAIN Last administered on 08/15/19at 13:32; Start 08/08/19 at 21:00; Stop 08/16/19 at 12: 53; Status DC Fentanyl Citrate (Fentanyl 2ml Vial) 25 mcg PRN Q2HR PRN IVP PAIN; Start 08/08/19 at 21:00; Stop 08/16/19 at 12:54; Status DC Enoxaparin Sodium (Lovenox 100mg Syringe) 100 mg Q12HR SQ ; Start 08/09/19 at 21:00; Status UNV Amino Acids/ Glycerin/ Electrolytes 1,000 ml @ 75 mls/hr [id number] IV ; Start 08/08/19 at 21:15; Status UNV Sodium Chloride 1,000 ml @ 1,000 mls/hr Q1H PRN IV hypotension; Start 08/09/19 at 07:56; Stop 08/09/19 at 13:55; Status DC Albumin Human 200 ml @ 200 mls/hr 1X PRN PRN IV Hypotension Last administered on 08/09/19at 08:40; Start 08/09/19 at 08:00; Stop 08/09/19 at 13:59; Status DC Sodium Chloride 1,000 ml @ 400 mls/hr Q2H30M PRN IV PATENCY; Start 08/09/19 at 07:56; Stop 08/09/19 at 19:55; Status DC Info (PHARMACY MONITORING -- do not chart) 1 each PRN DAILY PRN MC SEE COMMENTS; Start 08/09/19 at 08:00; Status UNV Info (PHARMACY MONITORING -- do not chart) 1 each PRN DAILY PRN MC SEE COMMENTS; Start 08/09/19 at 08:00; Status UNV Daptomycin 430 mg/ Sodium Chloride 50 ml @ 100 mls/hr Q24H IV Last administered on 08/09/19at 12:35; Start 08/09/19 at 09:00; Stop 08/09/19 at 12:49; Status DC Sodium Chloride 100 meq/Potassium Chloride 40 meq/ Magnesium Sulfate 20 meq/Calcium Gluconate 15 meq/ Multivitamins 10 ml/Chromium/ Copper/Manganese/ Seleni/Zn 0.5 ml/ Insulin Human Regular 35 unit/ Total Parenteral Nutrition/Amino Acids/Dextrose/ Fat Emulsion Intravenous 1,400 ml @ 58.333 mls/ hr TPN CONT IV Last administered on 08/09/19at 21:26; Start 08/09/19 at 22:00; Stop 08/10/19 at 21:59; Status DC Daptomycin 430 mg/ Sodium Chloride 50 ml @ 100 mls/hr Q48H IV ; Start 08/11/19 at 09:00; Stop 08/10/19 at 11:55; Status DC Sodium Chloride 100 meq/Potassium Chloride 40 meq/ Magnesium Sulfate 20 meq/Calcium Gluconate 15 meq/ Multivitamins 10 ml/Chromium/ Copper/Manganese/ Seleni/Zn 0.5 ml/ Insulin Human Regular 35 unit/ Total Parenteral Nutrition/Am tristen Acids/Dextrose/ Fat Emulsion Intravenous 1,400 ml @ 58.333 mls/ hr TPN CONT IV Last administered on 08/10/19at 22:27; Start 08/10/19 at 22:00; Stop 08/11/19 at 21:59; Status DC Daptomycin 430 mg/ Sodium Chloride 50 ml @ 100 mls/hr Q24H IV Last adm inistered on 08/12/19at 15:07; Start 08/10/19 at 13:00; Stop 08/13/19 at 13:15; Status DC Sodium Chloride 100 meq/Potassium Chloride 40 meq/ Magnesium Sulfate 20 meq/Calcium Gluconate 10 meq/ Multivitamins 10 ml/Chromium/ Copper/Manganese/ Seleni/Zn 0.5 ml/ Insulin Human Regular 35 unit/ Total Parenteral Nutrition/Amino Acids/Dextrose/ Fat Emulsion Intravenous 1,400 ml @ 58.333 mls/ hr TPN CONT IV Last administered on 08/12/19at 00:06; Start 08/11/19 at 22:00; Stop 08/12/19 at 21:59; Status DC Alteplase, Recombinant (Cathflo For Central Catheter Clearance) 1 mg 1X ONCE INT CAT Last administered on 08/12/19at 11:44; Start 08/12/19 at 10:45; Stop 08/12/19 at 10:46; Status DC Ondansetron HCl (Zofran) 4 mg PRN Q6HRS PRN IV NAUSEA/VOMITING; Start 08/15/19 at 07:00; Stop 08/16/19 at 06:59; Status DC Fentanyl Citrate (Fentanyl 2ml Vial) 25 mcg PRN Q5MIN PRN IV MILD PAIN 1-3; Start 08/15/19 at 07:00; Stop 08/16/19 at 06:59; Status DC Fentanyl Citrate (Fentanyl 2ml Vial) 50 mcg PRN Q5MIN PRN IV MODERATE TO SEVERE PAIN Last administered on 08/15/19at 10:17; Start 08/15/19 at 07:00; Stop 08/16/19 at 06:59; Status DC Ringer's Solution 1,000 ml @ 30 mls/hr Q24H IV ; Start 08/15/19 at 07:00; Stop 08/15/19 at 18:59; Status DC Lidocaine HCl (Xylocaine-Mpf 1% 2ml Vial) 2 ml PRN 1X PRN ID PRIOR TO IV START; Start 08/15/19 at 07:00; Stop 08/16/19 at 06:59; Status DC Prochlorperazine Edisylate (Compazine) 5 mg PACU PRN PRN IV NAUSEA, MRX1; Start 08/15/19 at 07:00; Stop 08/16/19 at 06:59; Status DC Sodium Acetate 50 meq/Potassium Acetate 55 meq/ Magnesium Sulfate 20 meq/Calcium Gluconate 10 meq/ Multivitamins 10 ml/Chromium/ Copper/Manganese/ Seleni/Zn 0.5 ml/ Insulin Human Regular 35 unit/ Total Parenteral Nutrition/Amino Acids/Dextrose/ Fat Emulsion Intravenous 1,400 ml @ 58.333 mls/ hr TPN CONT IV ; Start 08/12/19 at 22:00; Stop 08/12/19 at 14:15; Status DC Sodium Acetate 50 meq/Potassium Acetate 55 meq/ Magnesium Sulfate 20 meq/Calcium Gluconate 10 meq/ Multivitamins 10 ml/Chromium/ Copper/Manganese/ Seleni/Zn 0.5 ml/ Insulin Human Regular 35 unit/ Total Parenteral Nutrition/Amino Acids/Dextrose/ Fat Emulsion Intravenous 1,800 ml @ 75 mls/hr TPN CONT IV Last administered on 08/12/19at 22:38; Start 08/12/19 at 22:00; Stop 08/13/19 at 21:59; Status DC Sodium Chloride 1,000 ml @ 1,000 mls/hr Q1H PRN IV hypotension; Start 08/12/19 at 15:31; Stop 08/12/19 at 21:30; Status DC Diphenhydramine HCl (Benadryl) 25 mg 1X PRN PRN IV ITCHING; Start 08/12/19 at 15:45; Stop 08/13/19 at 15:44; Status DC Diphenhydramine HCl (Benadryl) 25 mg 1X PRN PRN IV ITCHING; Start 08/12/19 at 15:45; Stop 08/13/19 at 15:44; Status DC Sodium Chloride 1,000 ml @ 400 mls/hr Q2H30M PRN IV PATENCY; Start 08/12/19 at 15:31; Stop 08/13/19 at 03:30; Status DC Info (PHARMACY MONITORING -- do not chart) 1 each PRN DAILY PRN MC SEE COMMENTS; Start 08/12/19 at 15:45; Stop 09/13/19 at 14:14; Status DC Sodium Acetate 50 meq/Potassium Acetate 55 meq/ Magnesium Sulfate 20 meq/Calcium Gluconate 10 meq/ Multivitamins 10 ml/Chromium/ Copper/Manganese/ Seleni/Zn 0.5 ml/ Insulin Human Regular 35 unit/ Total Parenteral Nutrition/Amino Acids/Dextrose/ Fat Emulsion Intravenous 1,800 ml @ 75 mls/hr TPN CONT IV Last administered on 08/13/19at 22:03; Start 08/13/19 at 22:00; Stop 08/14/19 at 21:59; Status DC Daptomycin 430 mg/ Sodium Chloride 50 ml @ 100 mls/hr Q24H IV Last administered on 08/18/19at 13:00; Start 08/13/19 at 13:00; Stop 08/18/19 at 20:58; Status DC Heparin Sodium (Porcine) 1000 unit/Sodium Chloride 1,001 ml @ 1,001 mls/hr 1X ONCE IRR ; Start 08/15/19 at 06:00; Stop 08/15/19 at 06:59; Status DC Potassium Acetate 55 meq/Magnesium Sulfate 20 meq/ Calcium Gluconate 10 meq/ Multivitamins 10 ml/Chromium/ Copper/Manganese/ Seleni/Zn 0.5 ml/ Insulin Human Regular 35 unit/ Total Parenteral Nutrition/Amino Acids/Dextrose/ Fat Emulsion Intravenous 1,920 ml @ 80 mls/hr TPN CONT IV Last administered on 08/14/19at 22:10; Start 08/14/19 at 22:00; Stop 08/15/19 at 21:59; Status DC Dexamethasone Sodium Phosphate (Decadron) 4 mg STK-MED ONCE .ROUTE ; Start 08/15/19 at 10:56; Stop 08/15/19 at 10:57; Status DC Ondansetron HCl (Zofran) 4 mg STK-MED ONCE .ROUTE ; Start 08/15/19 at 10:56; Stop 08/15/19 at 10:57; Status DC Rocuronium [place] (Zemuron) 50 mg STK-MED ONCE .ROUTE ; Start 08/15/19 at 10:56; Stop 08/15/19 at 10:57; Status DC Fentanyl Citrate (Fentanyl 2ml Vial) 100 mcg STK-MED ONCE .ROUTE ; Start 08/15/19 at 10:56; Stop 08/15/19 at 10:57; Status DC Bupivacaine HCl/ Epinephrine Bitart (Sensorcain-Epi 0.5%-1:[id number] Mpf) 30 ml STK-MED ONCE .ROUTE Last administered on 08/15/19at 12:01; Start 08/15/19 at 10:58; Stop 08/15/19 at 10:58; Status DC Cellulose (Surgicel Hemostat 2x14) 1 each STK-MED ONCE .ROUTE ; Start 08/15/19 at 10:58; Stop 08/15/19 at 10:59; Status DC Iohexol (Omnipaque 300 Mg/ml) 50 ml STK-MED ONCE .ROUTE ; Start 08/15/19 at 10:58; Stop 08/15/19 at 10:59; Status DC Cellulose (Surgicel Hemostat 4x8) 1 each STK-MED ONCE .ROUTE ; Start 08/15/19 at 10:58; Stop 08/15/19 at 10:59; Status DC Bisacodyl (Dulcolax Supp) 10 mg STK-MED ONCE .ROUTE ; Start 08/15/19 at 10:59; Stop 08/15/19 at 10:59; Status DC Heparin Sodium (Porcine) 1000 unit/Sodium Chloride 1,001 ml @ 1,001 mls/hr 1X ONCE IRR ; Start 08/15/19 at 12:00; Stop 08/15/19 at 12:59; Status DC Propofol 20 ml @ As Directed STK-MED ONCE IV ; Start 08/15/19 at 11:05; Stop 08/15/19 at 11:05; Status DC Sevoflurane (Ultane) 90 ml STK-MED ONCE IH ; Start 08/15/19 at 11:05; Stop 08/15/19 at 11:05; Status DC Sevoflurane (Ultane) 60 ml STK-MED ONCE IH ; Start 08/15/19 at 12:26; Stop 08/15/19 at 12:27; Status DC Propofol 20 ml @ As Directed STK-MED ONCE IV ; Start 08/15/19 at 12:26; Stop 08/15/19 at 12:27; Status DC Phenylephrine HCl (PHENYLEPHRINE in 0.9% NACL PF) 1 mg STK-MED ONCE IV ; Start 08/15/19 at 12:34; Stop 08/15/19 at 12:34; Status DC Heparin Sodium (Porcine) (Heparin Sodium) 5,000 unit Q12HR SQ Last administered on 08/24/19at 20:57; Start 08/15/19 at 21:00; Stop 08/25/19 at 09:59; Status DC Sodium Chloride (Normal Saline Flush) 3 ml QSHIFT PRN IV AFTER MEDS AND BLOOD DRAWS; Start 08/15/19 at 13:45 Naloxone HCl (Narcan) 0.4 mg PRN Q2MIN PRN IV SEE INSTRUCTIONS Last administered on 09/24/19at 15:15; Start 08/15/19 at 13:45 Sodium Chloride 1,000 ml @ 25 mls/hr Q24H IV Last administered on 09/13/19at 13:37; Start 08/15/19 at 13:37; Stop 09/16/19 at 13:09; Status DC Naloxone HCl (Narcan) 0.4 mg PRN Q2MIN PRN IV SEE INSTRUCTIONS; Start 08/15/19 at 14:30; Status UNV Sodium Chloride 1,000 ml @ 25 mls/hr Q24H IV ; Start 08/15/19 at 14:30; Status UNV Hydromorphone HCl 30 ml @ 0 mls/hr CONT PRN PRN IV PER PROTOCOL Last administered on 08/20/19at 16:08; Start 08/15/19 at 14:30; Stop 08/22/19 at 08:55; Status DC Potassium Acetate 55 meq/Magnesium Sulfate 20 meq/ Calcium Gluconate 10 meq/ Multivitamins 10 ml/Chromium/ Copper/Manganese/ Seleni/Zn 0.5 ml/ Insulin Human Regular 35 unit/ Total Parenteral Nutrition/Amino Acids/Dextrose/ Fat Emulsion Intravenous 1,920 ml @ 80 mls/hr TPN CONT IV Last administered on 08/15/19at 22:01; Start 08/15/19 at 22:00; Stop 08/16/19 at 21:59; Status DC Bumetanide (Bumex) 2 mg [id number] IV Last administered on 08/19/19at 13:50; Start 08/16/19 at 14:00; Stop 08/20/19 at 14:10; Status DC Meropenem 1 gm/ Sodium Chloride 100 ml @ 200 mls/hr Q8HRS IV Last administered on 09/09/19at 05:53; Start 08/16/19 at 14:00; Stop 09/09/19 at 09:31; Status DC Potassium Acetate 55 meq/Magnesium Sulfate 20 meq/ Calcium Gluconate 10 meq/ Multivitamins 10 ml/Chromium/ Copper/Manganese/ Seleni/Zn 0.5 ml/ Insulin Human Regular 35 unit/ Total Parenteral Nutrition/Amino Acids/Dextrose/ Fat Emulsion Intravenous 1,920 ml @ 80 mls/hr TPN CONT IV Last administered on 08/16/19at 22:02; Start 08/16/19 at 22:00; Stop 08/17/19 at 21:59; Status DC Hydromorphone HCl (Dilaudid Standard SECOND CRUSHER) 12 mg STK-MED ONCE IV ; Start 08/15/19 at 14:35; Stop 08/16/19 at 13:53; Status DC Artificial Tears (Artificial Tears) 1 drop PRN Q15MIN PRN OU DRY EYE Last administered on 09/16/19at 10:08; Start 08/17/19 at 05:30 Hydromorphone HCl (Dilaudid Standard SECOND CRUSHER) 12 mg STK-MED ONCE IV ; Start 08/16/19 at 12:05; Stop 08/17/19 at 09:15; Status DC Potassium Acetate 65 meq/Magnesium Sulfate 20 meq/ Calcium Gluconate 10 meq/ Multivitamins 10 ml/Chromium/ Copper/Manganese/ Seleni/Zn 0.5 ml/ Insulin Human Regular 30 unit/ Total Parenteral Nutrition/Amino Acids/Dextrose/ Fat Emulsion Intravenous 1,920 ml @ 80 mls/hr TPN CONT IV Last administered on 08/17/19at 22:22; Start 08/17/19 at 22:00; Stop 08/18/19 at 21:59; Status DC Cyclobenzaprine HCl (Flexeril) 10 mg PRN Q6HRS PRN PO MUSCLE SPASMS; Start 08/18/19 at 10:45 Potassium Acetate 55 meq/Magnesium Sulfate 20 meq/ Calcium Gluconate 10 meq/ Multivitamins 10 ml/Chromium/ Copper/Manganese/ Seleni/Zn 0.5 ml/ Insulin Human Regular 30 unit/ Total Parenteral Nutrition/Amino Acids/Dextrose/ Fat Emulsion Intravenous 1,920 ml @ 80 mls/hr TPN CONT IV Last administered on 08/19/19at 01:00; Start 08/18/19 at 22:00; Stop 08/19/19 at 21:59; Status DC Magnesium Sulfate 50 ml @ 25 mls/hr 1X ONCE IV Last administered on 08/18/19at 17:18; Start 08/18/19 at 12:45; Stop 08/18/19 at 14:44; Status DC Potassium Chloride/Water 100 ml @ 100 mls/hr 1X ONCE IV Last administered on 08/19/19at 11:27; Start 08/19/19 at 12:00; Stop 08/19/19 at 12:59; Status DC Hydromorphone HCl (Dilaudid Standard SECOND CRUSHER) 12 mg STK-MED ONCE IV ; Start 08/17/19 at 10:50; Stop 08/19/19 at 11:02; Status DC Hydromorphone HCl (Dilaudid Standard SECOND CRUSHER) 12 mg STK-MED ONCE IV ; Start 08/18/19 at 13:47; Stop 08/19/19 at 11:03; Status DC Potassium Acetate 30 meq/Magnesium Sulfate 20 meq/ Calcium Gluconate 10 meq/ Multivitamins 10 ml/Chromium/ Copper/Manganese/ Seleni/Zn 0.5 ml/ Insulin Human Regular 30 unit/ Potassium Chloride 30 meq/ Total Parenteral Nutrition/Amino Acids/Dextrose/ Fat Emulsion Intravenous 1,920 ml @ 80 mls/hr TPN CONT IV Last administered on 08/19/19at 22:34; Start 08/19/19 at 22:00; Stop 08/20/19 at 21:59; Status DC Potassium Chloride/Water 100 ml @ 100 mls/hr Q1H IV Last administered on 0at 13:05; Start 08/20/19 at 07:00; Stop 08/20/19 at 10:59; Status DC Magnesium Sulfate 50 ml @ 25 mls/hr 1X ONCE IV Last administered on 08/20/19at 10:34; Start 08/20/19 at 10:30; Stop 08/20/19 at 12:29; Status DC Potassium Chloride 75 meq/ Magnesium Sulfate 20 meq/Calcium Gluconate 10 meq/ Multivitamins 10 ml/Chromium/ Copper/Manganese/ Seleni/Zn 0.5 ml/ Insulin Human Regular 30 unit/ Total Parenteral Nutrition/Amino Acids/Dextrose/ Fat Emulsion Intravenous 1,920 ml @ 80 mls/hr TPN CONT IV Last administered on 08/20/19at 21:51; Start 08/20/19 at 22:00; Stop 08/21/19 at 22:00; Status DC Potassium Chloride 75 meq/ Magnesium Sulfate 20 meq/Calcium Gluconate 10 meq/ Multivitamins 10 ml/Chromium/ Copper/Manganese/ Seleni/Zn 0.5 ml/ Insulin Human Regular 25 unit/ Total Parenteral Nutrition/Amino Acids/Dextrose/ Fat Emulsion Intravenous 1,920 ml @ 80 mls/hr TPN CONT IV Last administered on 08/21/19at 22:04; Start 08/21/19 at 22:00; Stop 08/22/19 at 21:59; Status DC Hydromorphone HCl (Dilaudid) 0.4 mg PRN Q4HRS PRN IVP PAIN Last administered on 08/22/19at 10:57; Start 08/22/19 at 09:00; Stop 08/22/19 at 18:59; Status DC Micafungin Sodium 100 mg/Dextrose 100 ml @ 100 mls/hr Q24H IV Last administered on 09/13/19at 12:17; Start 08/22/19 at 11:00; Stop 09/14/19 at 09:59; Status DC Daptomycin 485 mg/ Sodium Chloride 50 ml @ 100 mls/hr Q24H IV Last administered on 08/29/19at 13:10; Start 08/22/19 at 11:00; Stop 08/30/19 at 07:44; Status DC Potassium Chloride 75 meq/ Magnesium Sulfate 15 meq/Calcium Gluconate 8 meq/ Multivitamins 10 ml/Chromium/ Copper/Manganese/ Seleni/Zn 0.5 ml/ Insulin Human Regular 25 unit/ Total Parenteral Nutrition/Amino Acids/Dextrose/ Fat Emulsion Intravenous 1,920 ml @ 80 mls/hr TPN CONT IV Last administered on 08/22/19at 23:08; Start 08/22/19 at 22:00; Stop 08/23/19 at 21:59; Status DC Haloperidol Lactate (Haldol Inj) 3 mg 1X ONCE IVP Last administered on 08/22/19at 14:37; Start 08/22/19 at 14:30; Stop 08/22/19 at 14:31; Status DC Hydromorphone HCl (Dilaudid) 1 mg PRN Q4HRS PRN IVP PAIN Last administered on 09/05/19at 06:25; Start 08/22/19 at 19:00; Stop 09/05/19 at 17:10; Status DC Potassium Chloride 75 meq/ Magnesium Sulfate 15 meq/Calcium Gluconate 8 meq/ Multivitamins 10 ml/Chromium/ Copper/Manganese/ Seleni/Zn 0.5 ml/ Insulin Human Regular 20 unit/ Total Parenteral Nutrition/Amino Acids/Dextrose/ Fat Emulsion Intravenous 1,920 ml @ 80 mls/hr TPN CONT IV Last administered on 08/23/19at 22:10; Start 08/23/19 at 22:00; Stop 08/24/19 at 21:59; Status DC Lidocaine HCl (Buffered Lidocaine 1%) 3 ml STK-MED ONCE .ROUTE ; Start 08/24/19 at 11:31; Stop 08/24/19 at 11:31; Status DC Lidocaine HCl (Buffered Lidocaine 1%) 3 ml STK-MED ONCE .ROUTE ; Start 08/24/19 at 12:28; Stop 08/24/19 at 12:29; Status DC Lidocaine HCl (Buffered Lidocaine 1%) 6 ml 1X ONCE INJ Last administered on 08/24/19at 12:53; Start 08/24/19 at 12:45; Stop 08/24/19 at 12:46; Status DC Potassium Chloride 75 meq/ Magnesium Sulfate 15 meq/Calcium Gluconate 8 meq/ Multivitamins 10 ml/Chromium/ Copper/Manganese/ Seleni/Zn 0.5 ml/ Insulin Human Regular 20 unit/ Total Parenteral Nutrition/Amino Acids/Dextrose/ Fat Emulsion Intravenous 1,920 ml @ 80 mls/hr TPN CONT IV Last administered on 08/24/19at 22:00; Start 08/24/19 at 22:00; Stop 08/25/19 at 21:59; Status DC Potassium Chloride 75 meq/ Magnesium Sulfate 15 meq/Calcium Gluconate 8 meq/ Multivitamins 10 ml/Chromium/ Copper/Manganese/ Seleni/Zn 0.5 ml/ Insulin Human Regular 15 unit/ Total Parenteral Nutrition/Amino Acids/Dextrose/ Fat Emulsion Intravenous 1,920 ml @ 80 mls/hr TPN CONT IV Last administered on 08/25/19at 22:28; Start 08/25/19 at 22:00; Stop 08/26/19 at 21:59; Status DC Vecuronium [place] (Norcuron Bolus) 6 mg PRN Q6HRS PRN IV VENT ASYNCHRONY; Start 08/25/19 at 19:15; Stop 08/25/19 at 19:35; Status DC Bumetanide (Bumex) 2 mg 1X ONCE IV Last administered on 08/25/19at 22:09; Start 08/25/19 at 19:45; Stop 08/25/19 at 19:46; Status DC Lidocaine HCl (Buffered Lidocaine 1%) 3 ml STK-MED ONCE .ROUTE ; Start 08/26/19 at 07:59; Stop 08/26/19 at 07:59; Status DC Midazolam HCl (Versed) 5 mg STK-MED ONCE .ROUTE ; Start 08/26/19 at 08:36; Stop 08/26/19 at 08:36; Status DC Fentanyl Citrate (Fentanyl 5ml Vial) 250 mcg STK-MED ONCE .ROUTE ; Start 08/26/19 at 08:36; Stop 08/26/19 at 08:37; Status DC Lidocaine HCl (Buffered Lidocaine 1%) 3 ml 1X ONCE IJ Last administered on 08/26/19at 09:30; Start 08/26/19 at 09:15; Stop 08/26/19 at 09:16; Status DC Midazolam HCl (Versed) 5 mg 1X ONCE IV Last administered on 08/26/19at 09:30; Start 08/26/19 at 09:15; Stop 08/26/19 at 09:16; Status DC Fentanyl Citrate (Fentanyl 5ml Vial) 250 mcg 1X ONCE IV Last administered on 08/26/19at 09:30; Start 08/26/19 at 09:15; Stop 08/26/19 at 09:16; Status DC Bumetanide (Bumex) 2 mg DAILY IV Last administered on 09/05/19at 08:07; Start 08/26/19 at 10:00; Stop 09/05/19 at 17:15; Status DC Potassium Chloride 75 meq/ Magnesium Sulfate 15 meq/ Multivitamins 10 ml/Chromium/ Copper/Manganese/ Seleni/Zn 0.5 ml/ Insulin Human Regular 15 unit/ Total Parenteral Nutrition/Amino Acids/Dextrose/ Fat Emulsion Intravenous 1,920 ml @ 80 mls/hr TPN CONT IV Last administered on 08/26/19at 21:59; Start 08/26/19 at 22:00; Stop 08/27/19 at 21:59; Status DC Metoclopramide HCl (Reglan Vial) 10 mg PRN Q3HRS PRN IVP NAUSEA/VOMITING-3rd choice Last administered on 09/01/19at 04:25; Start 08/27/19 at 16:45 Potassium Chloride 75 meq/ Magnesium Sulfate 15 meq/ Multivitamins 10 ml/Chromium/ Copper/Manganese/ Seleni/Zn 0.5 ml/ Insulin Human Regular 15 unit/ Total Parenteral Nutrition/Amino Acids/Dextrose/ Fat Emulsion Intravenous 1,920 ml @ 80 mls/hr TPN CONT IV Last administered on 08/27/19at 22:41; Start 08/27/19 at 22:00; Stop 08/28/19 at 21:59; Status DC Magnesium Sulfate 50 ml @ 25 mls/hr 1X ONCE IV Last administered on 08/28/19at 10:44; Start 08/28/19 at 09:00; Stop 08/28/19 at 10:59; Status DC Potassium Chloride/Water 100 ml @ 100 mls/hr 1X ONCE IV Last administered on 08/28/19at 09:37; Start 08/28/19 at 09:00; Stop 08/28/19 at 09:59; Status DC Duloxetine HCl (Cymbalta) 30 mg DAILY PO Last administered on 08/29/19at 09:48; Start 08/28/19 at 14:00; Stop 08/31/19 at 10:25; Status DC Potassium Chloride 80 meq/ Magnesium Sulfate 20 meq/ Multivitamins 10 ml/Chromium/ Copper/Manganese/ Seleni/Zn 0.5 ml/ Insulin Human Regular 15 unit/ Total Parenteral Nutrition/Amino Acids/Dextrose/ Fat Emulsion Intravenous 1,920 ml @ 80 mls/hr TPN CONT IV Last administered on 08/28/19at 21:42; Start 08/28/19 at 22:00; Stop 08/29/19 at 21:59; Status DC Potassium Chloride 80 meq/ Magnesium Sulfate 20 meq/ Multivitamins 10 ml/Chromium/ Copper/Manganese/ Seleni/Zn 0.5 ml/ Insulin Human Regular 15 unit/ Total Parenteral Nutrition/Amino Acids/Dextrose/ Fat Emulsion Intravenous 1,920 ml @ 80 mls/hr TPN CONT IV Last administered on 08/29/19at 22:20; Start 08/29/19 at 22:00; Stop 08/30/19 at 21:59; Status DC Lidocaine HCl (Buffered Lidocaine 1%) 3 ml STK-MED ONCE .ROUTE ; Start 08/30/19 at 09:54; Stop 08/30/19 at 09:55; Status DC Hydromorphone HCl (Dilaudid Standard SECOND CRUSHER) 12 mg STK-MED ONCE IV ; Start 08/19/19 at 15:50; Stop 08/30/19 at 11:24; Status DC Potassium Chloride 80 meq/ Magnesium Sulfate 20 meq/ Multivitamins 10 ml/Chromium/ Copper/Manganese/ Seleni/Zn 0.5 ml/ Insulin Human Regular 15 unit/ Total Parenteral Nutrition/Amino Acids/Dextrose/ Fat Emulsion Intravenous 1,920 ml @ 80 mls/hr TPN CONT IV Last administered on 08/30/19at 21:40; Start 08/30/19 at 22:00; Stop 08/31/19 at 21:59; Status DC Lidocaine HCl (Buffered Lidocaine 1%) 6 ml 1X ONCE INJ Last administered on 08/30/19at 14:15; Start 08/30/19 at 14:15; Stop 08/30/19 at 14:16; Status DC Potassium Chloride 80 meq/ Magnesium Sulfate 20 meq/ Multivitamins 10 ml/Chromium/ Copper/Manganese/ Seleni/Zn 1 ml/ Insulin Human Regular 15 unit/ Total Parenteral Nutrition/Amino Acids/Dextrose/ Fat Emulsion Intravenous 1,920 ml @ 80 mls/hr TPN CONT IV Last administered on 08/31/19at 22:04; Start 08/31/19 at 22:00; Stop 09/01/19 at 21:59; Status DC Potassium Chloride/Water 100 ml @ 100 mls/hr 1X ONCE IV Last administered on 09/01/19at 11:34; Start 09/01/19 at 11:00; Stop 09/01/19 at 11:59; Status DC Potassium Chloride 90 meq/ Magnesium Sulfate 20 meq/ Multivitamins 10 ml/Chromium/ Copper/Manganese/ Seleni/Zn 1 ml/ Insulin Human Regular 15 unit/ Total Parenteral Nutrition/Amino Acids/Dextrose/ Fat Emulsion Intravenous 1,920 ml @ 80 mls/hr TPN CONT IV Last administered on 09/01/19at 22:57; Start 09/01/19 at 22:00; Stop 09/02/19 at 21:59; Status DC Potassium Chloride 90 meq/ Magnesium Sulfate 20 meq/ Multivitamins 10 ml/Chromium/ Copper/Manganese/ Seleni/Zn 1 ml/ Insulin Human Regular 15 unit/ Total Parenteral Nutrition/Amino Acids/Dextrose/ Fat Emulsion Intravenous 1,920 ml @ 80 mls/hr TPN CONT IV Last administered on 09/02/19at 22:48; Start 09/02/19 at 22:00; Stop 09/03/19 at 21:59; Status DC Potassium Chloride 90 meq/ Magnesium Sulfate 20 meq/ Multivitamins 10 ml/Chromium/ Copper/Manganese/ Seleni/Zn 1 ml/ Insulin Human Regular 15 unit/ Total Parenteral Nutrition/Amino Acids/Dextrose/ Fat Emulsion Intravenous 1,890 ml @ 78.75 mls/ hr TPN CONT IV Last administered on 09/03/19at 22:15; Start 09/03/19 at 22:00; Stop 09/04/19 at 21:59; Status DC Linezolid/Dextrose 300 ml @ 300 mls/hr Q12HR IV Last administered on 09/06/19at 21:08; Start 09/04/19 at 09:00; Stop 09/07/19 at 08:11; Status DC Daptomycin 450 mg/ Sodium Chloride 50 ml @ 100 mls/hr Q24H IV Last administered on 09/07/19at 09:25; Start 09/04/19 at 09:00; Stop 09/08/19 at 08:30; Status DC Potassium Chloride 90 meq/ Magnesium Sulfate 20 meq/ Multivitamins 10 ml/Chromium/ Copper/Manganese/ Seleni/Zn 1 ml/ Insulin Human Regular 15 unit/ Total Parenteral Nutrition/Amino Acids/Dextrose/ Fat Emulsion Intravenous 1,890 ml @ 78.75 mls/ hr TPN CONT IV Last administered on 09/04/19at 21:34; Start 09/04/19 at 22:00; Stop 09/05/19 at 21:59; Status DC Lorazepam (Ativan Inj) 2 mg STK-MED ONCE .ROUTE ; Start 09/04/19 at 14:58; Stop 09/04/19 at 14:58; Status DC Metoprolol Tartrate (Lopressor Vial) 5 mg 1X ONCE IVP Last administered on 09/04/19at 15:31; Start 09/04/19 at 15:15; Stop 09/04/19 at 15:16; Status DC Lorazepam (Ativan Inj) 2 mg 1X ONCE IVP Last administered on 09/04/19at 15:30; Start 09/04/19 at 15:15; Stop 09/04/19 at 15:16; Status DC Enoxaparin Sodium (Lovenox 40mg Syringe) 40 mg Q24H SQ Last administered on 09/23/19at 17:44; Start 09/04/19 at 17:00; Stop 09/25/19 at 06:50; Status DC Lorazepam (Ativan Inj) 1 mg PRN Q4HRS PRN IVP ANXIETY / AGITATION MILD-MOD Last administered on 09/18/19at 15:55; Start 09/04/19 at 19:15; Stop 09/20/19 at 11:45; Status DC Lorazepam (Ativan Inj) 2 mg PRN Q4HRS PRN IVP ANXIETY / AGITATION SEVERE Last administered on 09/19/19at 07:55; Start 09/04/19 at 19:15; Stop 09/20/19 at 11:45; Status DC Fentanyl Citrate (Fentanyl 2ml Vial) 50 mcg PRN Q4HRS PRN IVP SEVERE PAIN Last administered on 10/01/19at 05:15; Start 09/05/19 at 13:15 Fentanyl Citrate (Fentanyl 2ml Vial) 25 mcg PRN Q4HRS PRN IVP MODERATE PAIN L ast administered on 10/01/19at 00:27; Start 09/05/19 at 13:15 Potassium Chloride 90 meq/ Magnesium Sulfate 20 meq/ Multivitamins 10 ml/Chromium/ Copper/Manganese/ Seleni/Zn 1 ml/ Insulin Human Regular 15 unit/ Total Parenteral Nutrition/Amino Acids/Dextrose/ Fat Emulsion Intravenous 1,890 ml @ 78.75 mls/ hr TPN CONT IV Last administered on 09/05/19at 22:18; Start 09/05/19 at 22:00; Stop 09/06/19 at 21:59; Status DC Furosemide (Lasix) 40 mg 1X ONCE IVP Last administered on 09/05/19at 21:51; Start 09/05/19 at 21:45; Stop 09/05/19 at 21:48; Status DC Albumin Human 100 ml @ 100 mls/hr 1X PRN PRN IV SEE COMMENTS; Start 09/06/19 at 01:30 Furosemide (Lasix) 40 mg [id number] IVP Last administered on 09/21/19at 08:04; Start 09/06/19 at 14:00; Stop 09/21/19 at 13:07; Status DC Potassium Chloride 90 meq/ Magnesium Sulfate 20 meq/ Multivitamins 10 ml/Chromium/ Copper/Manganese/ Seleni/Zn 1 ml/ Insulin Human Regular 15 unit/ Total Parenteral Nutrition/Amino Acids/Dextrose/ Fat Emulsion Intravenous 1,800 ml @ 75 mls/hr TPN CONT IV Last administered on 09/06/19at 22:31; Start 09/06/19 at 22:00; Stop 09/07/19 at 21:59; Status DC Potassium Chloride 90 meq/ Magnesium Sulfate 20 meq/ Multivitamins 10 ml/Chromium/ Copper/Manganese/ Seleni/Zn 1 ml/ Insulin Human Regular 15 unit/ Total Parenteral Nutrition/Amino Acids/Dextrose/ Fat Emulsion Intravenous 1,800 ml @ 75 mls/hr TPN CONT IV Last administered on 09/07/19at 22:28; Start 09/07/19 at 22:00; Stop 09/08/19 at 21:59; Status DC Potassium Chloride 110 meq/ Magnesium Sulfate 20 meq/ Multivitamins 10 ml/Chromium/ Copper/Manganese/ Seleni/Zn 1 ml/ Insulin Human Regular 15 unit/ Total Parenteral Nutrition/Amino Acids/Dextrose/ Fat Emulsion Intravenous 1,800 ml @ 75 mls/hr TPN CONT IV Last administered on 09/08/19at 22:01; Start 09/08/19 at 22:00; Stop 09/09/19 at 21:59; Status DC Saliva Substitute (Biotene Moisturizing Mouth) 2 spray PRN Q15MIN PRN PO DRY MOUTH; Start 09/08/19 at 11:00 Potassium Chloride 110 meq/ Magnesium Sulfate 20 meq/ Multivitamins 10 ml/Chromium/ Copper/Manganese/ Seleni/Zn 1 ml/ Insulin Human Regular 15 unit/ Total Parenteral Nutrition/Amino Acids/Dextrose/ Fat Emulsion Intravenous 1,800 ml @ 75 mls/hr TPN CONT IV Last administered on 09/09/19at 22:21; Start 09/09/19 at 22:00; Stop 09/10/19 at 21:59; Status DC Potassium Chloride 110 meq/ Magnesium Sulfate 20 meq/ Multivitamins 10 ml/Chromium/ Copper/Manganese/ Seleni/Zn 1 ml/ Insulin Human Regular 15 unit/ Total Parenteral Nutrition/Amino Acids/Dextrose/ Fat Emulsion Intravenous 1,800 ml @ 75 mls/hr TPN CONT IV Last administered on 09/10/19at 22:04; Start 09/10/19 at 22:00; Stop 09/11/19 at 21:59; Status DC Potassium Chloride 110 meq/ Magnesium Sulfate 20 meq/ Multivitamins 10 ml/Chromium/ Copper/Manganese/ Seleni/Zn 1 ml/ Insulin Human Regular 15 unit/ Total Parenteral Nutrition/Amino Acids/Dextrose/ Fat Emulsion Intravenous 1,800 ml @ 75 mls/hr TPN CONT IV Last administered on 09/11/19at 22:48; Start 09/11/19 at 22:00; Stop 09/12/19 at 21:59; Status DC Potassium Chloride 70 meq/ Magnesium Sulfate 20 meq/ Multivitamins 10 ml/Chromium/ Copper/Manganese/ Seleni/Zn 1 ml/ Insulin Human Regular 15 unit/ Total Parenteral Nutrition/Amino Acids/Dextrose/ Fat Emulsion Intravenous 1,800 ml @ 75 mls/hr TPN CONT IV Last administered on 09/12/19at 21:39; Start 09/12/19 at 22:00; Stop 09/13/19 at 21:59; Status DC Meropenem 500 mg/ Sodium Chloride 50 ml @ 100 mls/hr Q6HRS IV Last admi nistered on 09/14/19at 06:02; Start 09/12/19 at 18:00; Stop 09/14/19 at 09:59; Status DC Barium Sulfate (Varibar Thin Liquid Apple) 148 gm 1X ONCE PO ; Start 09/13/19 at 11:45; Stop 09/13/19 at 11:49; Status DC Potassium Chloride 70 meq/ Magnesium Sulfate 20 meq/ Multivitamins 10 ml/Chromium/ Copper/Manganese/ Seleni/Zn 1 ml/ Insulin Human Regular 15 unit/ Total Parenteral Nutrition/Amino Acids/Dextrose/ Fat Emulsion Intravenous 1,800 ml @ 75 mls/hr TPN CONT IV Last administered on 09/13/19at 22:27; Start 09/13/19 at 22:00; Stop 09/14/19 at 21:59; Status DC Piperacillin Sod/ Tazobactam Sod 3.375 gm/Sodium Chloride 50 ml @ 100 mls/hr Q6HRS IV Last administered on 09/22/19at 06:10; Start 09/14/19 at 12:00; Stop 09/22/19 at 07:26; Status DC Potassium Chloride 70 meq/ Magnesium Sulfate 20 meq/ Multivitamins 10 ml/Chromium/ Copper/Manganese/ Seleni/Zn 1 ml/ Insulin Human Regular 15 unit/ Total Parenteral Nutrition/Amino Acids/Dextrose/ Fat Emulsion Intravenous 1,800 ml @ 75 mls/hr TPN CONT IV Last administered on 09/14/19at 22:03; Start 09/14/19 at 22:00; Stop 09/15/19 at 21:59; Status DC Potassium Chloride 70 meq/ Magnesium Sulfate 20 meq/ Multivitamins 10 ml/Chromium/ Copper/Manganese/ Seleni/Zn 1 ml/ Insulin Human Regular 15 unit/ Total Parenteral Nutrition/Amino Acids/Dextrose/ Fat Emulsion Intravenous 1,800 ml @ 75 mls/hr TPN CONT IV Last administered on 09/15/19at 22:33; Start 09/15/19 at 22:00; Stop 09/16/19 at 21:59; Status DC Potassium Chloride 70 meq/ Magnesium Sulfate 20 meq/ Multivitamins 10 m l/Chromium/ Copper/Manganese/ Seleni/Zn 1 ml/ Insulin Human Regular 15 unit/ Total Parenteral Nutrition/Amino Acids/Dextrose/ Fat Emulsion Intravenous 1,800 ml @ 75 mls/hr TPN CONT IV Last administered on 09/16/19at 23:13; Start 09/16/19 at 22:00; Stop 09/17/19 at 21:59; Status DC Potassium Chloride 80 meq/ Magnesium Sulfate 20 meq/ Multivitamins 10 ml/Chromium/ Copper/Manganese/ Seleni/Zn 1 ml/ Insulin Human Regular 15 unit/ Total Parenteral Nutrition/Amino Acids/Dextrose/ Fat Emulsion Intravenous 1,800 ml @ 75 mls/hr TPN CONT IV Last administered on 09/17/19at 22:30; Start 09/17/19 at 22:00; Stop 09/18/19 at 21:59; Status DC Potassium Chloride 80 meq/ Magnesium Sulfate 20 meq/ Multivitamins 10 ml/Chromium/ Copper/Manganese/ Seleni/Zn 1 ml/ Insulin Human Regular 15 unit/ Total Parenteral Nutrition/Amino Acids/Dextrose/ Fat Emulsion Intravenous 1,800 ml @ 75 mls/hr TPN CONT IV Last administered on 09/18/19at 21:54; Start 09/18/19 at 22:00; Stop 09/19/19 at 21:59; Status DC Potassium Chloride/Water 100 ml @ 100 mls/hr 1X ONCE IV Last administered on 09/19/19at 10:15; Start 09/19/19 at 10:00; Stop 09/19/19 at 10:59; Status DC Potassium Chloride 90 meq/ Magnesium Sulfate 20 meq/ Multivitamins 10 ml/Chromium/ Copper/Manganese/ Seleni/Zn 1 ml/ Insulin Human Regular 20 unit/ Total Parenteral Nutrition/Amino Acids/Dextrose/ Fat Emulsion Intravenous 1,800 ml @ 75 mls/hr TPN CONT IV Last administered on 09/19/19at 22:28; Start 09/19/19 at 22:00; Stop 09/20/19 at 21:59; Status DC Potassium Chloride 90 meq/ Magnesium Sulfate 20 meq/ Multivitamins 10 ml/Chromium/ Copper/Manganese/ Seleni/Zn 1 ml/ Insulin Human Regular 20 unit/ Total Parenteral Nutrition/Amino Acids/Dextrose/ Fat Emulsion Intravenous 1,800 ml @ 75 mls/hr TPN CONT IV Last administered on 09/20/19at 22:08; Start 09/20/19 at 22:00; Stop 09/21/19 at 21:59; Status DC Lorazepam (Ativan Inj) 0.25 mg PRN Q4HRS PRN IVP ANXIETY / AGITATION Last administered on 10/01/19at 02:25; Start 09/21/19 at 07:30 Potassium Chloride 90 meq/ Magnesium Sulfate 20 meq/ Multivitamins 10 ml/Chromium/ Copper/Manganese/ Seleni/Zn 1 ml/ Insulin Human Regular 20 unit/ Total Parenteral Nutrition/Amino Acids/Dextrose/ Fat Emulsion Intravenous 1,800 ml @ 75 mls/hr TPN CONT IV Last administered on 09/21/19at 23:13; Start 09/21/19 at 22:00; Stop 09/22/19 at 21:59; Status DC Furosemide (Lasix) 40 mg DAILY IVP Last administered on 09/23/19at 11:14; Start 09/21/19 at 13:30; Stop 09/25/19 at 09:12; Status DC Fluoxetine HCl (PROzac) 20 mg QHS PEG Last administered on 10/01/19at 21:17; Start 09/22/19 at 21:00 Fentanyl (Duragesic 50mcg/ Hr Patch) 1 patch Q72H TD Last administered on 09/22/19at 21:22; Start 09/22/19 at 21:00; Stop 10/01/19 at 12:00; Status DC Potassium Chloride 40 meq/ Potassium Acetate 60 meq/Magnesium Sulfate 10 meq/ Multivitamins 10 ml/Chromium/ Copper/Manganese/ Seleni/Zn 1 ml/ Insulin Human Regular 20 unit/ Total Parenteral Nutrition/Amino Acids/Dextrose/ Fat Emulsion Intravenous 1,800 ml @ 75 mls/hr TPN CONT IV Last administered on 09/23/19at 00:03; Start 09/22/19 at 22:00; Stop 09/23/19 at 21:59; Status DC Potassium Acetate 80 meq/Magnesium Sulfate 5 meq/ Multivitamins 10 ml/Chromium/ Copper/Manganese/ Seleni/Zn 1 ml/ Insulin Human Regular 20 unit/ Total Parenteral Nutrition/Amino Acids/Dextrose/ Fat Emulsion Intravenous 1,920 ml @ 80 mls/hr TPN CONT IV Last administered on 09/23/19at 21:59; Start 09/23/19 at 22:00; Stop 09/24/19 at 21:59; Status DC Potassium Acetate 60 meq/Magnesium Sulfate 5 meq/ Multivitamins 10 ml/Chromium/ Copper/Manganese/ Seleni/Zn 1 ml/ Insulin Human Regular 30 unit/ Total Parenteral Nutrition/Amino Acids/Dextrose/ Fat Emulsion Intravenous 1,920 ml @ 80 mls/hr TPN CONT IV Last administered on 09/24/19at 21:54; Start 09/24/19 at 22:00; Stop 09/25/19 at 21:59; Status DC Norepinephrine Bitartrate 8 mg/ Dextrose 258 ml @ 13.332 mls/ hr CONT PRN IV PER PROTOCOL Last administered on 09/25/19at 21:46; Start 09/25/19 at 06:30 Albumin Human 500 ml @ 125 mls/hr 1X ONCE IV Last administered on 09/25/19at 08:10; Start 09/25/19 at 08:15; Stop 09/25/19 at 12:14; Status DC Potassium Acetate 40 meq/Magnesium Sulfate 5 meq/ Multivitamins 10 ml/Chromium/ Copper/Manganese/ Seleni/Zn 1 ml/ Insulin Human Regular 30 unit/ Total Parenteral Nutrition/Amino Acids/Dextrose/ Fat Emulsion Intravenous 1,920 ml @ 80 mls/hr TPN CONT IV Last administered on 09/25/19at 22:23; Start 09/25/19 at 22:00; Stop 09/26/19 at 21:59; Status DC Meropenem 1 gm/ Sodium Chloride 100 ml @ 200 mls/hr Q8HRS IV ; Start 09/25/19 at 14:00; Status Cancel Meropenem 1 gm/ Sodium Chloride 100 ml @ 200 mls/hr Q8HRS IV Last administered on 09/25/19at 11:04; Start 09/25/19 at 10:00; Stop 09/25/19 at 13:00; Status DC Meropenem 1 gm/ Sodium Chloride 100 ml @ 200 mls/hr Q12HR IV Last administered on 10/02/19at 08:58; Start 09/25/19 at 21:00 Sodium Chloride 1,000 ml @ 1,000 mls/hr 1X ONCE IV Last administered on 09/25/19at 11:06; Start 09/25/19 at 10:45; Stop 09/25/19 at 11:44; Status DC Micafungin Sodium 100 mg/Dextrose 100 ml @ 100 mls/hr Q24H IV Last administered on 10/01/19at 11:16; Start 09/25/19 at 11:00 Daptomycin 410 mg/ Sodium Chloride 50 ml @ 100 mls/hr Q24H IV Last administered on 09/27/19at 13:33; Start 09/25/19 at 14:00; Stop 09/28/19 at 08:30; Status DC Midazolam HCl (Versed) 2 mg STK-MED ONCE .ROUTE ; Start 09/25/19 at 14:47; Stop 09/25/19 at 14:48; Status DC Fentanyl Citrate (Fentanyl 2ml Vial) 100 mcg STK-MED ONCE .ROUTE ; Start 09/25/19 at 14:47; Stop 09/25/19 at 14:48; Status DC Flumazenil (Romazicon) 0.5 mg STK-MED ONCE IV ; Start 09/25/19 at 14:48; Stop 09/25/19 at 14:48; Status DC Naloxone HCl (Narcan) 0.4 mg STK-MED ONCE .ROUTE ; Start 09/25/19 at 14:48; Stop 09/25/19 at 14:48; Status DC Lidocaine HCl (Lidocaine 1% 20ml Vial) 20 ml STK-MED ONCE .ROUTE ; Start 09/25/19 at 14:48; Stop 09/25/19 at 14:48; Status DC Midazolam HCl (Versed) 2 mg 1X ONCE IV Last administered on 09/25/19at 15:28; Start 09/25/19 at 15:00; Stop 09/25/19 at 15:01; Status DC Fentanyl Citrate (Fentanyl 2ml Vial) 100 mcg 1X ONCE IV Last administered on 09/25/19at 15:28; Start 09/25/19 at 15:00; Stop 09/25/19 at 15:01; Status DC Lidocaine HCl (Lidocaine 1% 20ml Vial) 20 ml 1X ONCE INJ Last administered on 09/25/19at 15:30; Start 09/25/19 at 15:00; Stop 09/25/19 at 15:01; Status DC Sodium Chloride 1,000 ml @ 100 mls/hr Q10H IV Last administered on 10/02/19at 05:18; Start 09/25/19 at 20:00 Sodium Bicarbonate (Sodium Bicarb Adult 8.4% Syr) 50 meq 1X ONCE IV Last administered on 09/25/19at 21:47; Start 09/25/19 at 22:00; Stop 09/25/19 at 22:01; Status DC Potassium Acetate 40 meq/Magnesium Sulfate 5 meq/ Multivitamins 10 ml/Chromium/ Copper/Manganese/ Seleni/Zn 1 ml/ Insulin Human Regular 30 unit/ Total Parenteral Nutrition/Amino Acids/Dextrose/ Fat Emulsion Intravenous 1,920 ml @ 80 mls/hr TPN CONT IV Last administered on 09/26/19at 22:28; Start 09/26/19 at 22:00; Stop 09/27/19 at 21:59; Status DC Sodium Chloride 500 ml @ 500 mls/hr 1X ONCE IV Last administered on 09/27/19at 06:39; Start 09/27/19 at 06:45; Stop 09/27/19 at 07:44; Status DC Potassium Acetate 40 meq/Magnesium Sulfate 5 meq/ Multivitamins 10 ml/Chromium/ Copper/Manganese/ Seleni/Zn 1 ml/ Insulin Human Regular 30 unit/ Total Parenteral Nutrition/Amino Acids/Dextrose/ Fat Emulsion Intravenous 1,920 ml @ 80 mls/hr TPN CONT IV Last administered on 09/27/19at 22:03; Start 09/27/19 at 22:00; Stop 09/28/19 at 21:59; Status DC Metoprolol Tartrate (Lopressor Vial) 5 mg PRN Q6HRS PRN IVP HYPERTENSION Last administered on 10/01/19at 04:03; Start 09/28/19 at 09:00 Potassium Acetate 40 meq/Magnesium Sulfate 5 meq/ Multivitamins 10 ml/Chromium/ Copper/Manganese/ Seleni/Zn 1 ml/ Insulin Human Regular 30 unit/ Total Parenteral Nutrition/Amino Acids/Dextrose/ Fat Emulsion Intravenous 1,920 ml @ 80 mls/hr TPN CONT IV Last administered on 09/28/19at 21:26; Start 09/28/19 at 22:00; Stop 09/29/19 at 21:59; Status DC Potassium Acetate 40 meq/Magnesium Sulfate 5 meq/ Multivitamins 10 ml/Chromium/ Copper/Manganese/ Seleni/Zn 1 ml/ Insulin Human Regular 30 unit/ Total Parenteral Nutrition/Amino Acids/Dextrose/ Fat Emulsion Intravenous 1,920 ml @ 80 mls/hr TPN CONT IV Last administered on 09/29/19at 23:23; Start 09/29/19 at 22:00; Stop 09/30/19 at 21:59; Status DC Potassium Acetate 40 meq/Magnesium Sulfate 5 meq/ Multivitamins 10 ml/Chromium/ Copper/Manganese/ Seleni/Zn 1 ml/ Insulin Human Regular 30 unit/ Total Parenteral Nutrition/Amino Acids/Dextrose/ Fat Emulsion Intravenous 1,920 ml @ 80 mls/hr TPN CONT IV Last administered on 09/30/19at 21:35; Start 09/30/19 at 22:00; Stop 10/01/19 at 21:59; Status DC Furosemide (Lasix) 20 mg 1X ONCE IVP Last administered on 10/01/19at 06:26; Start 10/01/19 at 06:15; Stop 10/01/19 at 06:16; Status DC Methylprednisolone Sodium Succinate (SOLU-Medrol 125MG VIAL) 125 mg 1X ONCE IV Last administered on 10/01/19at 06:26; Start 10/01/19 at 06:15; Stop 10/01/19 at 06:16; Status DC Albuterol/ Ipratropium (Duoneb) 3 ml Q4HRS NEB Last administered on 10/02/19at 08:23; Start 10/01/19 at 08:00 Fentanyl Citrate 30 ml @ 0 mls/hr CONT PRN IV SEE PROTOCOL Last administered on 10/02/19at 02:12; Start 10/01/19 at 06:00 Propofol 100 ml @ 0 mls/hr CONT PRN IV SEE PROTOCOL Last administered on 10/01/19at 06:10; Start 10/01/19 at 06:00 Fentanyl Citrate (Fentanyl 2ml Vial) 25 mcg PRN Q1HR PRN IV SEE COMMENTS; Start 10/01/19 at 06:00 Fentanyl Citrate (Fentanyl 2ml Vial) 50 mcg PRN Q1HR PRN IV SEE COMMENTS; Start 10/01/19 at 06:00 Chlorhexidine Gluconate (Peridex) 15 ml BID MM ; Start 10/01/19 at 09:00; Stop 10/01/19 at 07:58; Status DC Potassium Acetate 40 meq/Magnesium Sulfate 5 meq/ Multivitamins 10 ml/Chromium/ Copper/Manganese/ Seleni/Zn 1 ml/ Insulin Human Regular 30 unit/ Total Parenteral Nutrition/Amino Acids/Dextrose/ Fat Emulsion Intravenous 1,920 ml @ 80 mls/hr TPN CONT IV Last administered on 10/01/19at 21:19; Start 10/01/19 at 22:00; Stop 10/02/19 at 21:59 Acetylcysteine (Mucomyst 20% Resp Treatment) 600 mg BID NEB Last administered on 10/02/19at 08:23; Start 10/01/19 at 21:00 Magnesium Sulfate 100 ml @ 25 mls/hr 1X ONCE IV Last administered on 10/01/19at 15:48; Start 10/01/19 at 15:45; Stop 10/01/19 at 19:44; Status DC Active Scripts Active Reported Bisoprolol Fumarate 5 Mg Tablet 10 Mg PO DAILY Vitals/I & O Vital Sign - Last 24 Hours 10/01/19 10/01/19 10/01/19 10/01/19 10:00 11:00 11:36 12:00 Pulse 96 95 97 Resp 20 20 B/P (MAP) 120/67 (84) 134/75 (94) Pulse Ox 99 99 99 O2 Delivery Ventilator Ventilator Ventilator 10/01/19 10/01/19 10/01/19 10/01/19 12:00 12:00 13:00 13:17 Temp 99.0 99.0 Pulse 103 91 Resp 20 20 B/P (MAP) 106/62 (77) 108/62 (77) Pulse Ox 100 99 99 O2 Delivery Ventilator Mechanical Ventilator Ventilator Ventilator 10/01/19 10/01/19 10/01/19 10/01/19 14:00 15:00 15:44 15:49 Pulse 93 94 Resp 20 20 B/P (MAP) 92/53 (66) 120/68 (85) Pulse Ox 98 100 99 O2 Delivery Ventilator Ventilator Ventilator Mechanical Ventilator 10/01/19 10/01/19 10/01/19 10/01/19 15:49 16:00 17:00 17:15 Temp 98.0 98.8 98.0 98.8 Pulse 91 90 92 92 Resp 20 20 20 B/P (MAP) 110/61 (77) 112/62 (79) 116/93 Pulse Ox 100 100 O2 Delivery Ventilator Ventilator 10/01/19 10/01/19 10/01/19 10/01/19 17:30 17:59 18:00 18:19 Temp 98.0 98.3 98.0 98.3 Pulse 93 94 82 Resp 20 20 20 B/P (MAP) 116/64 114/66 (82) 110/58 Pulse Ox 100 100 O2 Delivery Ventilator Ventilator 10/01/19 10/01/19 10/01/19 10/01/19 19:00 19:19 20:00 20:20 Temp 98.6 98.6 98.6 98.6 Pulse 82 82 82 Resp 20 20 20 B/P (MAP) 110/62 (78) 110/62 112/62 (79) Pulse Ox 99 98 O2 Delivery Ventilator Ventilator Mechanical Ventilator 10/01/19 10/01/19 10/01/19 10/01/19 20:20 20:30 20:40 21:00 Temp 98.3 98.3 Pulse 81 84 86 Resp 20 20 B/P (MAP) 146/77 116/62 (80) Pulse Ox 98 97 O2 Delivery Ventilator Ventilator 10/01/19 10/01/19 10/01/19 10/02/19 22:00 22:15 23:00 00:00 Temp 97.3 97.3 Pulse 80 83 79 Resp 20 20 20 B/P (MAP) 108/60 (76) 131/69 (89) 119/65 (83) Pulse Ox 97 98 100 99 O2 Delivery Ventilator Ventilator Ventilator Ventilator 10/02/19 10/02/19 10/02/19 10/02/19 00:05 00:35 01:00 02:00 Pulse 90 80 Resp 20 20 B/P (MAP) 128/68 (88) 118/64 (82) Pulse Ox 100 100 100 O2 Delivery Mechanical Ventilator Ventilator Ventilator Ventilator 10/02/19 10/02/19 10/02/19 10/02/19 03:00 03:10 04:00 04:15 Temp 97.5 97.5 Pulse 80 72 64 Resp 20 20 B/P (MAP) 118/64 (82) 118/64 (82) Pulse Ox 100 98 100 O2 Delivery Ventilator Ventilator Ventilator 10/02/19 10/02/19 10/02/19 10/02/19 04:15 05:00 05:05 06:00 Pulse 66 62 Resp 20 20 B/P (MAP) 111/59 (76) 118/64 (82) Pulse Ox 100 99 100 O2 Delivery Mechanical Ventilator Ventilator Ventilator Ventilator 10/02/19 10/02/19 10/02/19 10/02/19 07:00 07:56 07:56 08:00 Temp 97.6 97.6 Pulse 60 59 65 Resp 20 20 B/P (MAP) 114/58 (76) 140/67 (91) Pulse Ox 100 100 O2 Delivery Ventilator Mechanical Ventilator Ventilator 10/02/19 10/02/19 08:23 09:00 Pulse 69 Resp 20 B/P (MAP) 119/60 (79) Pulse Ox 100 99 O2 Delivery Ventilator Ventilator Intake and Output 10/01/19 10/01/19 10/02/19 15:00 23:00 07:00 Intake Total 100 ml 3319 ml Output Total 1448 ml 861 ml 365 ml Balance -1448 ml -761 ml 2954 ml Hemodynamically unstable?: No Is patient in severe pain?: No Is NPO status required?: No DAVIN LANDEROS MD Oct 02, 2019 09:32
--- NOTE | 2019-10-02 09:56 | PDOC ---
PULMONARY PROGRESS NOTES Subjective back on vent 09/30, now on peep 5, fi02 35%, large secretion, on low dose propofol, open eyes w verbal stimuli Patient intubated on 07/10 , s/p trach 07/24, transferred back to ICU 09/22 for syncope with collapse developed anemia, blood drainage from RLQ abdomen drain site, and surrounding firmness / developed septic shock 09/24 from abdomen source, required levo 09/24 s/p 3 new drains 09/24 with brown color drainage was place on AVAPS 09/24 post continues to have Dark blood / bloody drainage from KAYLIN drains, 1500 cc in past 24 hrs . off pressor Vitals Vital Signs Date Time Temp Pulse Resp B/P (MAP) Pulse Ox O2 Delivery O2 Flow Rate FiO2 10/02/19 09:00 69 20 119/60 (79) 99 Ventilator 10/02/19 08:00 97.6 97.6 Comments ros unable to obtain General: Lethargic HEENT: Other (nc at perrl nose clear neck trach site ok no lab no thyromegaly) Lungs: Other (diminshed in bases, Rhonci in LLL) Cardiovascular: S1, S2 Abdomen: Soft, Non-tender, Other (bleeding from Sx. site RLQ and firmness) Extremities: Other (+1 BLE edema) Skin: Warm, Dry Labs Laboratory Tests Test 09/30/19 12:05 09/30/19 12:45 09/30/19 17:11 09/30/19 23:56 Glucose (Fingerstick) 158 mg/dL (70-99) 145 mg/dL (70-99) 140 mg/dL (70-99) White Blood Count 7.0 x10^3/uL (4.0-11.0) Red Blood Count 2.99 x10^6/uL (3.50-5.40) Hemoglobin 8.5 g/dL (12.0-15.5) Hematocrit 25.7 % (36.0-47.0) Mean Corpuscular Volume 86 fL (79-100) Mean Corpuscular Hemoglobin 29 pg (25-35) Mean Corpuscular Hemoglobin Concent 33 g/dL (31-37) Red Cell Distribution Width 19.7 % (11.5-14.5) Platelet Count 347 x10^3/uL (140-400) Test 10/01/19 04:00 10/01/19 05:20 10/01/19 07:50 10/01/19 11:24 White Blood Count 9.4 x10^3/uL (4.0-11.0) Red Blood Count 3.27 x10^6/uL (3.50-5.40) Hemoglobin 9.2 g/dL (12.0-15.5) Hematocrit 27.7 % (36.0-47.0) Mean Corpuscular Volume 85 fL (79-100) Mean Corpuscular Hemoglobin 28 pg (25-35) Mean Corpuscular Hemoglobin Concent 33 g/dL (31-37) Red Cell Distribution Width 20.1 % (11.5-14.5) Platelet Count 433 x10^3/uL (140-400) Neutrophils (%) (Auto) 76 % (31-73) Lymphocytes (%) (Auto) 17 % (24-48) Monocytes (%) (Auto) 5 % (0-9) Eosinophils (%) (Auto) 2 % (0-3) Basophils (%) (Auto) 0 % (0-3) Neutrophils # (Auto) 7.2 x10^3/uL (1.8-7.7) Lymphocytes # (Auto) 1.6 x10^3/uL (1.0-4.8) Monocytes # (Auto) 0.5 x10^3/uL (0.0-1.1) Eosinophils # (Auto) 0.2 x10^3/uL (0.0-0.7) Basophils # (Auto) 0.0 x10^3/uL (0.0-0.2) Sodium Level 146 mmol/L (136-145) Potassium Level 3.8 mmol/L (3.5-5.1) Chloride Level 112 mmol/L (98-107) Carbon Dioxide Level 24 mmol/L (21-32) Anion Gap 10 (6-14) Blood Urea Nitrogen 25 mg/dL (7-20) Creatinine 0.7 mg/dL (0.6-1.0) Estimated GFR (Cockcroft-Gault) 88.9 Glucose Level 151 mg/dL (70-99) Calcium Level 10.1 mg/dL (8.5-10.1) O2 Saturation 89 % (92-99) 99 % (92-99) Arterial Blood pH 7.29 (7.35-7.45) 7.39 (7.35-7.45) Arterial Blood pCO2 at Patient Temp 50 mmHg (35-46) 38 mmHg (35-46) Arterial Blood pO2 at Patient Temp 64 mmHg (75-108) 177 mmHg (75-108) Arterial Blood HCO3 24 mmol/L (21-28) 23 mmol/L (21-28) Arterial Blood Base Excess -3 mmol/L (-3-3) -2 mmol/L (-3-3) FiO2 75 Glucose (Fingerstick) 187 mg/dL (70-99) Test 10/01/19 15:08 10/01/19 18:19 10/01/19 20:10 10/02/19 00:38 White Blood Count 9.3 x10^3/uL (4.0-11.0) 8.4 x10^3/uL (4.0-11.0) Red Blood Count 2.78 x10^6/uL (3.50-5.40) 3.04 x10^6/uL (3.50-5.40) Hemoglobin 8.1 g/dL (12.0-15.5) 9.0 g/dL (12.0-15.5) Hematocrit 23.5 % (36.0-47.0) 26.0 % (36.0-47.0) Mean Corpuscular Volume 85 fL (79-100) 86 fL (79-100) Mean Corpuscular Hemoglobin 29 pg (25-35) 30 pg (25-35) Mean Corpuscular Hemoglobin Concent 34 g/dL (31-37) 35 g/dL (31-37) Red Cell Distribution Width 19.1 % (11.5-14.5) 18.7 % (11.5-14.5) Platelet Count 380 x10^3/uL (140-400) 388 x10^3/uL (140-400) Magnesium Level 1.5 mg/dL (1.8-2.4) Glucose (Fingerstick) 220 mg/dL (70-99) 188 mg/dL (70-99) Test 10/02/19 05:30 White Blood Count 7.5 x10^3/uL (4.0-11.0) Red Blood Count 2.95 x10^6/uL (3.50-5.40) Hemoglobin 8.6 g/dL (12.0-15.5) Hematocrit 25.0 % (36.0-47.0) Mean Corpuscular Volume 85 fL (79-100) Mean Corpuscular Hemoglobin 29 pg (25-35) Mean Corpuscular Hemoglobin Concent 34 g/dL (31-37) Red Cell Distribution Width 18.0 % (11.5-14.5) Platelet Count 382 x10^3/uL (140-400) Neutrophils (%) (Auto) 79 % (31-73) Lymphocytes (%) (Auto) 17 % (24-48) Monocytes (%) (Auto) 4 % (0-9) Eosinophils (%) (Auto) 0 % (0-3) Basophils (%) (Auto) 0 % (0-3) Neutrophils # (Auto) 5.9 x10^3/uL (1.8-7.7) Lymphocytes # (Auto) 1.3 x10^3/uL (1.0-4.8) Monocytes # (Auto) 0.3 x10^3/uL (0.0-1.1) Eosinophils # (Auto) 0.0 x10^3/uL (0.0-0.7) Basophils # (Auto) 0.0 x10^3/uL (0.0-0.2) Sodium Level 145 mmol/L (136-145) Potassium Level 3.8 mmol/L (3.5-5.1) Chloride Level 113 mmol/L (98-107) Carbon Dioxide Level 24 mmol/L (21-32) Anion Gap 8 (6-14) Blood Urea Nitrogen 36 mg/dL (7-20) Creatinine 0.8 mg/dL (0.6-1.0) Estimated GFR (Cockcroft-Gault) 76.2 BUN/Creatinine Ratio 45 (6-20) Glucose Level 227 mg/dL (70-99) Calcium Level 9.2 mg/dL (8.5-10.1) Phosphorus Level 3.7 mg/dL (2.6-4.7) Magnesium Level 2.5 mg/dL (1.8-2.4) Total Bilirubin 0.4 mg/dL (0.2-1.0) Aspartate Amino Transf (AST/SGOT) 31 U/L (15-37) Alanine Aminotransferase (ALT/SGPT) 29 U/L (14-59) Alkaline Phosphatase 82 U/L (46-116) Total Protein 4.6 g/dL (6.4-8.2) Albumin 1.0 g/dL (3.4-5.0) Albumin/Globulin Ratio 0.3 (1.0-1.7) Laboratory Tests Test 10/01/19 11:24 10/01/19 15:08 10/01/19 18:19 10/01/19 20:10 Glucose (Fingerstick) 187 mg/dL (70-99) 220 mg/dL (70-99) White Blood Count 9.3 x10^3/uL (4.0-11.0) 8.4 x10^3/uL (4.0-11.0) Red Blood Count 2.78 x10^6/uL (3.50-5.40) 3.04 x10^6/uL (3.50-5.40) Hemoglobin 8.1 g/dL (12.0-15.5) 9.0 g/dL (12.0-15.5) Hematocrit 23.5 % (36.0-47.0) 26.0 % (36.0-47.0) Mean Corpuscular Volume 85 fL (79-100) 86 fL (79-100) Mean Corpuscular Hemoglobin 29 pg (25-35) 30 pg (25-35) Mean Corpuscular Hemoglobin Concent 34 g/dL (31-37) 35 g/dL (31-37) Red Cell Distribution Width 19.1 % (11.5-14.5) 18.7 % (11.5-14.5) Platelet Count 380 x10^3/uL (140-400) 388 x10^3/uL (140-400) Magnesium Level 1.5 mg/dL (1.8-2.4) Test 10/02/19 00:38 10/02/19 05:30 Glucose (Fingerstick) 188 mg/dL (70-99) White Blood Count 7.5 x10^3/uL (4.0-11.0) Red Blood Count 2.95 x10^6/uL (3.50-5.40) Hemoglobin 8.6 g/dL (12.0-15.5) Hematocrit 25.0 % (36.0-47.0) Mean Corpuscular Volume 85 fL (79-100) Mean Corpuscular Hemoglobin 29 pg (25-35) Mean Corpuscular Hemoglobin Concent 34 g/dL (31-37) Red Cell Distribution Width 18.0 % (11.5-14.5) Platelet Count 382 x10^3/uL (140-400) Neutrophils (%) (Auto) 79 % (31-73) Lymphocytes (%) (Auto) 17 % (24-48) Monocytes (%) (Auto) 4 % (0-9) Eosinophils (%) (Auto) 0 % (0-3) Basophils (%) (Auto) 0 % (0-3) Neutrophils # (Auto) 5.9 x10^3/uL (1.8-7.7) Lymphocytes # (Auto) 1.3 x10^3/uL (1.0-4.8) Monocytes # (Auto) 0.3 x10^3/uL (0.0-1.1) Eosinophils # (Auto) 0.0 x10^3/uL (0.0-0.7) Basophils # (Auto) 0.0 x10^3/uL (0.0-0.2) Sodium Level 145 mmol/L (136-145) Potassium Level 3.8 mmol/L (3.5-5.1) Chloride Level 113 mmol/L (98-107) Carbon Dioxide Level 24 mmol/L (21-32) Anion Gap 8 (6-14) Blood Urea Nitrogen 36 mg/dL (7-20) Creatinine 0.8 mg/dL (0.6-1.0) Estimated GFR (Cockcroft-Gault) 76.2 BUN/Creatinine Ratio 45 (6-20) Glucose Level 227 mg/dL (70-99) Calcium Level 9.2 mg/dL (8.5-10.1) Phosphorus Level 3.7 mg/dL (2.6-4.7) Magnesium Level 2.5 mg/dL (1.8-2.4) Total Bilirubin 0.4 mg/dL (0.2-1.0) Aspartate Amino Transf (AST/SGOT) 31 U/L (15-37) Alanine Aminotransferase (ALT/SGPT) 29 U/L (14-59) Alkaline Phosphatase 82 U/L (46-116) Total Protein 4.6 g/dL (6.4-8.2) Albumin 1.0 g/dL (3.4-5.0) Albumin/Globulin Ratio 0.3 (1.0-1.7) Medications Active Scripts Medications Dose Route/Sig Max Daily Dose Days Date Category Bisoprolol Fumarate 5 Mg Tablet 10 Mg PO DAILY 07/04/19 Reported Comments CXR 10/02/2019 trach infilt effusion atelectasis on l side improved r effusion/atelectasis ct abdomen /pelvis 09/23 1. Removal of the percutaneous pigtail drainage catheters since the prior exam. Sequela of pancreatitis with extensive pseudocysts again demonstrated, the right-sided collections are slightly larger since the prior exam, the left-sided collections are stable. See above. 2. Moderate to large left pleural effusion with atelectasis and collapse of most of the left lower lobe, stable. Small right pleural effusion is stable. 3. Gallstone. Impression . IMPRESSION: 1. Acute hypoxemic respiratory failure secondary to ARDS status post trach, developed anemia 09/24, blood drainage from RLQ abdomen drain site, and surrounding firmness / developed septic shock 09/24 from abdomen source, required levo /7 s/p 3 new drains / with brown color drainage, back on vent 09/30, Bloody drainage again from KAYLIN drains / 1500 cc in last 24 hr 2. Gallstone pancreatitis, now with ongoing bleeding from prior drain. Anemic. s/p Tx multiple units over several days 3. septic shock/sepsis, recurrent 09/24, source abdomen. , off levo now, 4. Acute kidney injury-, Off HD--renal function decling. suspect JUANA on CKD due to hypotension , improved now 5. Acute gallstone pancreatitis. 6. Hypoalbuminemia. 7. Moderate persistent effusions, s/p left thora 08/29, reaccumulation of left effusion. O2 requirement not changed. 8. Fever- ,hypotension. suspect recurrent sepsis/ likely pancreatic source. Per ID, per surgery-- 9. Chronic anemia-- ongoing / s/p PRBC 10. Covid 19 testing negative 11. Moderate to large ascites-S/P paracentisis 12.S/P paracentisis with 4 liters removed on 08/03/19 13. S/P IR drain placement on 08/26/2019, removal 14. Depression/Anxiety 1 Plan . 1. back on vent 09/30, cxr reviewed, left effusion/infilt/atelectasis, suspect most of it is effusion, BD and mucumyst added, cxr reviewed, improved, will monitor, no need for thoracentesis, no need for bronch, abg reviewed, titrate fio2 to keep sat 94%, cont vent support 2. Follow all cultures/ PSA from pelvic drains. Abx per ID 3. Follow surgery recs-- Acute pancreatitis with persistent necrosis ---- 08/14 status post KAYLIN drain placement + C paropsilosis; 08/23 + yeast & high amylase; s/p additional drains on 08/25, removal of drains and now increase pseudocyst and increase fluid collection. likely infected fluid/ sepsis. continues to have bloody drainage thru drains . 90 cc in last 24 hrs .Initiated BS abx.follow surgery rec, planning surgical intervention next few weeks 4. Follow ID recs for ABX---- 5. Follow nephrology recs ----- 6. Continue TPN 7. monitor HGB, 4 units since 09/23--monitor HGB transfuse if less than 8.5 8. hold off on thoracentesis . effusion small to moderate , monitor for now 10. s/p thoracentesis, 08/29, 3 litres removed 11. Pt remains critically ill from severe necrotic pancreatis. Even with surgery prognosis grim. Surgery informed family. DVT/GI PPX: protonix--- holding lovenox 2/2 anemia PT/OT D/W RN, rt and dr beckford, critically ill cc time 30 min no overlap TEN WHITFIELD MD Oct 02, 2019 09:56
[2019-10-02] MEDS: TPN PER PHARMACY MC PRN (10:30)
--- NOTE | 2019-10-02 10:43 | NUR ---
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, 8 inches Weight: 78.5 kg Current diet: NPO LABS: Sodium: 145 Potassium: 3.8 Chloride: 113 Calcium: 9.2 Corrected Calcium: 11.60 Magnesium: 2.5 CO2: 24 SCr: 0.8 Glucose: 227 Albumin: 1.0 AST: 31 ALT: 29 TPN FORMULA: TPN TYPE: Central Continuous AMINO ACIDS: 75 gm DEXTROSE: 250 gm LIPIDS: 20 gm SODIUM CHLORIDE: - mEq SODIUM ACETATE: - mEq SODIUM PHOSPHATE: - mmol POTASSIUM CHLORIDE: - mEq POTASSIUM ACETATE: 40 mEq POTASSIUM PHOSPHATE: - mmol MAGNESIUM: 5 mEq CALCIUM: - mEq INSULIN: 30 units MULTIPLE VITAMIN: 10 ml TRACE ELEMENTS: 1 ml(s) TPN PLAN: Continue same TPN. R: Continue TPN Will monitor electrolytes, glucose, and tolerance to TPN. HITESH GARZA [facility], 10/02/19 1043
[2019-10-02] MEDS: PROPOFOL 100 ML IV PRN (11:09)
[2019-10-02] MEDS: MICAFUNGIN 100 MG in IV DEXTROSE 5% 100ML 100 ML IV SCH (11:10)
[2019-10-02 12:33] LABS: FIO2 ABG 40
[2019-10-02] MEDS ORDERED: DEXTROSE 70% IV SCH ×8 (22:00)
[2019-10-02] MEDS ORDERED: TOTAL PARENTERAL NUTRITION IV SCH ×8 (22:00)
[2019-10-02] MEDS ORDERED: AMINO ACID IV SCH ×8 (22:00)
[2019-10-02] MEDS ORDERED: [UNRECOGNIZED DRUG - OTHER] IV SCH ×8 (22:00)
[2019-10-03] VITALS (30 sets, daily range): BP systolic 118–165; BP diastolic 65–93
[2019-10-03] MEDS: IV NORMAL SALINE 1000ML BAG 1,000 ML IV SCH ×3 (03:38→19:57)
[2019-10-03] MEDS: POLYVINYL ALCOHOL 1.4% OPHTH SOLUTION 15ML BOTTLE. OU PRN (03:38)
[2019-10-03] MEDS: IPRATRPIUM/ALBUTEROL 0.5/2.5MG 3 ML NEBU. NEB SCH ×7 (04:00→23:45)
[2019-10-03] MEDS: INSULIN LISPRO 300 UNITS/3 ML VIAL. SQ SCH ×4 (06:00→17:30)
[2019-10-03 06:26] LABS: ALBUMIN 1.1 g/dL (3.4-5.0); ALBUMIN/GLOBULIN RATIO 0.3 (1.0-1.7); CALCIUM 8.8 mg/dL (8.5-10.1); CREATININE 0.7 mg/dL (0.6-1.0); GFR 88.9; MAGNESIUM 1.8 mg/dL (1.8-2.4); POTASSIUM 3.3 mmol/L (3.5-5.1); TOTAL BILIRUBIN 0.5 mg/dL (0.2-1.0); TOTAL PROTEIN 4.5 g/dL (6.4-8.2)
[2019-10-03] MEDS: POTASSIUM CHLORIDE 20MEQ 100 ML IV SCH ×2 (07:05→08:31)
[2019-10-03 07:23] LABS: BASO % 0 % (0-3); EOS # 0.1 x10^3/uL (0.0-0.7); EOS % 1 % (0-3); HEMATOCRIT 27.8 % (36.0-47.0); HEMOGLOBIN 9.3 g/dL (12.0-15.5); LYMPH # 1.2 x10^3/uL (1.0-4.8); LYMPH % 15 % (24-48); MEAN CORPUSCULAR HEMOGLOBIN 28 pg (25-35); MEAN CORPUSCULAR HGB CONC 34 g/dL (31-37); MEAN CORPUSCULAR VOLUME 85 fL (79-100); MONO # 0.4 x10^3/uL (0.0-1.1); MONO % 5 % (0-9); NEUT # 6.4 x10^3/uL (1.8-7.7); NEUT % 80 % (31-73); PLATELET COUNT 434 x10^3/uL (140-400); RED BLOOD COUNT 3.28 x10^6/uL (3.50-5.40); RED CELL DISTRIBUTION WIDTH 18.6 % (11.5-14.5); WHITE BLOOD COUNT 8.1 x10^3/uL (4.0-11.0)
--- NOTE | 2019-10-03 07:43 | PDOC ---
Infectious Disease Note Subjective Subjective Patient better Continues to have blood stained drainage from drains no fevers last 24 hours ROS ROS o/w neg Vital Sign Vital Signs Vital Signs Date Time Temp Pulse Resp B/P (MAP) Pulse Ox O2 Delivery O2 Flow Rate FiO2 10/03/19 07:00 90 20 145/69 (94) 99 Ventilator 10/03/19 04:00 98.3 98.3 Physical Exam PHYSICAL EXAM GENERAL: More Alert and looks better HEENT: NGT in place. Oral mucosa dry NECK: Tracheostomy LUNGS: Diminished aeration bases, no accessory muscle use HEART: S1, S2, tachy, regular ABDOMEN: Mild distention, bowel sounds present, soft, grimaces to palpation Right lateral side drainage bag, 3 drains with bloodstained drainage. 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 LUE-PICC (09/15) without signs of complications - art line without complications Labs Lab Laboratory Tests Test 10/02/19 10:45 10/02/19 12:11 10/02/19 17:52 10/03/19 00:23 O2 Saturation 98 % (92-99) Arterial Blood pH 7.45 (7.35-7.45) Arterial Blood pCO2 at Patient Temp 34 mmHg (35-46) Arterial Blood pO2 at Patient Temp 146 mmHg (75-108) Arterial Blood HCO3 23 mmol/L (21-28) Arterial Blood Base Excess -1 mmol/L (-3-3) FiO2 40 Glucose (Fingerstick) 159 mg/dL (70-99) 129 mg/dL (70-99) 118 mg/dL (70-99) Test 10/03/19 05:45 10/03/19 05:54 White Blood Count 8.1 x10^3/uL (4.0-11.0) Red Blood Count 3.28 x10^6/uL (3.50-5.40) Hemoglobin 9.3 g/dL (12.0-15.5) Hematocrit 27.8 % (36.0-47.0) Mean Corpuscular Volume 85 fL (79-100) Mean Corpuscular Hemoglobin 28 pg (25-35) Mean Corpuscular Hemoglobin Concent 34 g/dL (31-37) Red Cell Distribution Width 18.6 % (11.5-14.5) Platelet Count 434 x10^3/uL (140-400) Neutrophils (%) (Auto) 80 % (31-73) Lymphocytes (%) (Auto) 15 % (24-48) Monocytes (%) (Auto) 5 % (0-9) Eosinophils (%) (Auto) 1 % (0-3) Basophils (%) (Auto) 0 % (0-3) Neutrophils # (Auto) 6.4 x10^3/uL (1.8-7.7) Lymphocytes # (Auto) 1.2 x10^3/uL (1.0-4.8) Monocytes # (Auto) 0.4 x10^3/uL (0.0-1.1) Eosinophils # (Auto) 0.1 x10^3/uL (0.0-0.7) Basophils # (Auto) 0.0 x10^3/uL (0.0-0.2) Sodium Level 143 mmol/L (136-145) Potassium Level 3.3 mmol/L (3.5-5.1) Chloride Level 111 mmol/L (98-107) Carbon Dioxide Level 23 mmol/L (21-32) Anion Gap 9 (6-14) Blood Urea Nitrogen 34 mg/dL (7-20) Creatinine 0.7 mg/dL (0.6-1.0) Estimated GFR (Cockcroft-Gault) 88.9 BUN/Creatinine Ratio 49 (6-20) Glucose Level 125 mg/dL (70-99) Calcium Level 8.8 mg/dL (8.5-10.1) Magnesium Level 1.8 mg/dL (1.8-2.4) Total Bilirubin 0.5 mg/dL (0.2-1.0) Aspartate Amino Transf (AST/SGOT) 62 U/L (15-37) Alanine Aminotransferase (ALT/SGPT) 72 U/L (14-59) Alkaline Phosphatase 132 U/L (46-116) Total Protein 4.5 g/dL (6.4-8.2) Albumin 1.1 g/dL (3.4-5.0) Albumin/Globulin Ratio 0.3 (1.0-1.7) Glucose (Fingerstick) 115 mg/dL (70-99) Micro 6/7 GRAM STAIN Final Final GRAM NEGATIVE RODS:MODERATE SQUAMOUS EPI CELL:NOT APPLICABLE PMN (WBCs):RARE YEAST:MODERATE Unless otherwise specified, Testing Performed by: [address] [id number] For Inquires, the Physician may contact the Microbiology department at [phone] ANAEROBIC-AEROBIC CULTURE Preliminary Preliminary MANY GRAM NEGATIVE RODS on 09/27/19 at 1158 FINAL ID= [[email or web address]] PSEUDOMONAS AERUGINOSA ANTIMICROBIAL SUSCEPTIBILITY Preliminary Comment NEG ALEXANDRA 56 PSEUDOMONAS AERUGINOSA ANTIBIOTIC RESULT INTERPRETATION AMIKACIN <=16 S AZTREONAM >16 R CEFTAZIDIME >16 R CIPROFLOXACIN <=0.25 S CEFEPIME 16 I CEFTAZIDIME/AVIBACTAM <=4 S GENTAMICIN <=2 S CONTINUED ON NEXT PAGE RUN DATE: 09/29/19 [facility] *LIVE* PAGE 2 RUN TIME: 1016 Specimen Inquiry SPEC: [id number] PATIENT: SCOTT CUELLAR Eliz [id number] (Continued) Procedure Result ANTIMICROBIAL SUSCEPTIBILITY Preliminary (continued) LEVOFLOXACIN <=0.5 S MEROPENEM <=1 S PIPERACILLIN/TAZOBACTAM 64 S TOBRAMYCIN <=2 S Unless otherwise specified, Testing Performed by: [address] [id number] For Inquires, the Physician may contact the Microbiology department at [phone] CT Scan 09/23 IMPRESSION: 1. Removal of the percutaneous pigtail drainage catheters since the prior exam. Sequela of pancreatitis with extensive pseudocysts again demonstrated, the right-sided collections are slightly larger since the prior exam, the left-sided collections are stable. See above. 2. Moderate to large left pleural effusion with atelectasis and collapse of most of the left lower lobe, stable. Small right pleural effusion is stable. 3. Gallstone. Objective Assessment Patient with prolonged hospitalization Multiple medical problems Multiple surgical procedures 09/24 fluid cult PSAE (MDRO),yeast moderate s/p drain times three CXR with Left lung white-out 09/30 ? effusion Acute hypoxic resp failure on 40 % and 5 PEEP Transaminitis - mild Fever improving Acute pancreatitis with persistent necrosis CT a/p 07/27 Increased ascites. 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 Sequela of pancreatitis with extensive pseudocysts again demonstrated, the right-sided collections are slightly larger since the prior exam, the left-sided collections are stable. Cholelithiasis with thickening of the gallbladder wall. Leucocytosis - better JUANA,Hyperkalemia, Metabolic acidosis off dialysis Acute hypoxic resp failure ,bilateral pleural effusion and atelectasis hypocalcemia Prediabetes HTN s/p trach S/p thoracenteis 08/29 Plan Plan of Care Await Pulm F/u - may need thoracentesis - has increased secretions per nursing. ? possible effusion - large on CT scan- currently AF/WBC nml Would consider repeat CT scan abd/pel since drain placed 09/24 and now some drainage from previous drain site. 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 labs General surgery following Monitor drain output Maintain aspiration precaution Supportive care [facility] micro [phone] Critically ill D/w nursing WILLY BARAKAT MD Oct 03, 2019 07:43
[2019-10-03] MEDS: ACETYLCYSTEINE 20% for RESP TX 600 MG/3 ML. NEB SCH ×2 (07:53→20:24)
[2019-10-03 08:14] LABS: BASE EXCESS ABG -2 mmol/L (-3-3); HCO3 ABG 22 mmol/L (21-28); PCO2 ABG 31 mmHg (35-46); PO2 ABG 117 mmHg (75-108); SAT O2 ABG 97 % (92-99)
[2019-10-03 08:16] LABS: FIO2 ABG 35
[2019-10-03] MEDS: MEROPENEM 1 GM in IV NORMAL SALINE 100ML 100 ML IV SCH ×2 (08:31→20:51)
[2019-10-03] MEDS: PANTOPRAZOLE IV PUSH 40 MG VIAL. IVP SCH (08:31)
--- NOTE | 2019-10-03 08:42 | PDOC ---
PROGRESS NOTES Assessment Problems Medical Problems: (1) Acute pancreatitis Status: Acute (2) Cholelithiasis Status: Acute Single seizure on 06/23, no recurrence. Metabolic encephalopathy. Fevers. Metabolic acidosis. Diffuse pulmonary infiltrate. Pleural effusion. Pancreatitis, necrotizing. Gallstone. Leukocytosis. Lymphopenia. Electrolytes imbalances. Hyperglycemia. DM. HTN. HLD. Anemia. Abnormal CXR. Obesity. Ascites and pleural effusion Ileus with vomiting Anemia JUANA Hyperkalemia Metabolic acidosis Hypertension S/P trache, back on vent Anemia S/P IR drain placement, 09/24 Hypotension, intermittently requiring Levophed Plan Keppra if she has further seizures. Treat medical diseases. Subjective Indicates no pain Objective Vital Signs Date Time Temp Pulse Resp B/P (MAP) Pulse Ox O2 Delivery O2 Flow Rate FiO2 10/03/19 08:00 10/03/19 08:00 98.5 98 20 99 Ventilator 98.5 Intake and Output 10/03/19 07:00 Intake Total 3353.41 ml Output Total 1861 ml Balance 1492.41 ml IV Total 3353.41 ml Output Urine Total 1518 ml Drainage Total 343 ml PHYSICAL EXAM Alert, follows commands. Tracheostomy shield. Back on vent PERRL. EOMI. CN: no focal findings. Muscle tone: normal. Muscle strength: 3-4/5 DTR: 1+ Plantar reflex: Silent Gait: not examined in bed. Sensory exam: normal Cerebellar: normal Review of Relevant I have reviewed the following items kolby (where applicable) has been applied. Labs Laboratory Tests Test 10/01/19 11:24 10/01/19 15:08 10/01/19 18:19 10/01/19 20:10 Glucose (Fingerstick) 187 mg/dL (70-99) 220 mg/dL (70-99) White Blood Count 9.3 x10^3/uL (4.0-11.0) 8.4 x10^3/uL (4.0-11.0) Red Blood Count 2.78 x10^6/uL (3.50-5.40) 3.04 x10^6/uL (3.50-5.40) Hemoglobin 8.1 g/dL (12.0-15.5) 9.0 g/dL (12.0-15.5) Hematocrit 23.5 % (36.0-47.0) 26.0 % (36.0-47.0) Mean Corpuscular Volume 85 fL (79-100) 86 fL (79-100) Mean Corpuscular Hemoglobin 29 pg (25-35) 30 pg (25-35) Mean Corpuscular Hemoglobin Concent 34 g/dL (31-37) 35 g/dL (31-37) Red Cell Distribution Width 19.1 % (11.5-14.5) 18.7 % (11.5-14.5) Platelet Count 380 x10^3/uL (140-400) 388 x10^3/uL (140-400) Magnesium Level 1.5 mg/dL (1.8-2.4) Test 10/02/19 00:38 10/02/19 05:30 10/02/19 10:45 10/02/19 12:11 Glucose (Fingerstick) 188 mg/dL (70-99) 159 mg/dL (70-99) White Blood Count 7.5 x10^3/uL (4.0-11.0) Red Blood Count 2.95 x10^6/uL (3.50-5.40) Hemoglobin 8.6 g/dL (12.0-15.5) Hematocrit 25.0 % (36.0-47.0) Mean Corpuscular Volume 85 fL (79-100) Mean Corpuscular Hemoglobin 29 pg (25-35) Mean Corpuscular Hemoglobin Concent 34 g/dL (31-37) Red Cell Distribution Width 18.0 % (11.5-14.5) Platelet Count 382 x10^3/uL (140-400) Neutrophils (%) (Auto) 79 % (31-73) Lymphocytes (%) (Auto) 17 % (24-48) Monocytes (%) (Auto) 4 % (0-9) Eosinophils (%) (Auto) 0 % (0-3) Basophils (%) (Auto) 0 % (0-3) Neutrophils # (Auto) 5.9 x10^3/uL (1.8-7.7) Lymphocytes # (Auto) 1.3 x10^3/uL (1.0-4.8) Monocytes # (Auto) 0.3 x10^3/uL (0.0-1.1) Eosinophils # (Auto) 0.0 x10^3/uL (0.0-0.7) Basophils # (Auto) 0.0 x10^3/uL (0.0-0.2) Sodium Level 145 mmol/L (136-145) Potassium Level 3.8 mmol/L (3.5-5.1) Chloride Level 113 mmol/L (98-107) Carbon Dioxide Level 24 mmol/L (21-32) Anion Gap 8 (6-14) Blood Urea Nitrogen 36 mg/dL (7-20) Creatinine 0.8 mg/dL (0.6-1.0) Estimated GFR (Cockcroft-Gault) 76.2 BUN/Creatinine Ratio 45 (6-20) Glucose Level 227 mg/dL (70-99) Calcium Level 9.2 mg/dL (8.5-10.1) Phosphorus Level 3.7 mg/dL (2.6-4.7) Magnesium Level 2.5 mg/dL (1.8-2.4) Total Bilirubin 0.4 mg/dL (0.2-1.0) Aspartate Amino Transf (AST/SGOT) 31 U/L (15-37) Alanine Aminotransferase (ALT/SGPT) 29 U/L (14-59) Alkaline Phosphatase 82 U/L (46-116) Total Protein 4.6 g/dL (6.4-8.2) Albumin 1.0 g/dL (3.4-5.0) Albumin/Globulin Ratio 0.3 (1.0-1.7) O2 Saturation 98 % (92-99) Arterial Blood pH 7.45 (7.35-7.45) Arterial Blood pCO2 at Patient Temp 34 mmHg (35-46) Arterial Blood pO2 at Patient Temp 146 mmHg (75-108) Arterial Blood HCO3 23 mmol/L (21-28) Arterial Blood Base Excess -1 mmol/L (-3-3) FiO2 40 Test 10/02/19 17:52 10/03/19 00:23 10/03/19 05:45 10/03/19 05:54 Glucose (Fingerstick) 129 mg/dL (70-99) 118 mg/dL (70-99) 115 mg/dL (70-99) White Blood Count 8.1 x10^3/uL (4.0-11.0) Red Blood Count 3.28 x10^6/uL (3.50-5.40) Hemoglobin 9.3 g/dL (12.0-15.5) Hematocrit 27.8 % (36.0-47.0) Mean Corpuscular Volume 85 fL (79-100) Mean Corpuscular Hemoglobin 28 pg (25-35) Mean Corpuscular Hemoglobin Concent 34 g/dL (31-37) Red Cell Distribution Width 18.6 % (11.5-14.5) Platelet Count 434 x10^3/uL (140-400) Neutrophils (%) (Auto) 80 % (31-73) Lymphocytes (%) (Auto) 15 % (24-48) Monocytes (%) (Auto) 5 % (0-9) Eosinophils (%) (Auto) 1 % (0-3) Basophils (%) (Auto) 0 % (0-3) Neutrophils # (Auto) 6.4 x10^3/uL (1.8-7.7) Lymphocytes # (Auto) 1.2 x10^3/uL (1.0-4.8) Monocytes # (Auto) 0.4 x10^3/uL (0.0-1.1) Eosinophils # (Auto) 0.1 x10^3/uL (0.0-0.7) Basophils # (Auto) 0.0 x10^3/uL (0.0-0.2) Sodium Level 143 mmol/L (136-145) Potassium Level 3.3 mmol/L (3.5-5.1) Chloride Level 111 mmol/L (98-107) Carbon Dioxide Level 23 mmol/L (21-32) Anion Gap 9 (6-14) Blood Urea Nitrogen 34 mg/dL (7-20) Creatinine 0.7 mg/dL (0.6-1.0) Estimated GFR (Cockcroft-Gault) 88.9 BUN/Creatinine Ratio 49 (6-20) Glucose Level 125 mg/dL (70-99) Calcium Level 8.8 mg/dL (8.5-10.1) Magnesium Level 1.8 mg/dL (1.8-2.4) Total Bilirubin 0.5 mg/dL (0.2-1.0) Aspartate Amino Transf (AST/SGOT) 62 U/L (15-37) Alanine Aminotransferase (ALT/SGPT) 72 U/L (14-59) Alkaline Phosphatase 132 U/L (46-116) Total Protein 4.5 g/dL (6.4-8.2) Albumin 1.1 g/dL (3.4-5.0) Albumin/Globulin Ratio 0.3 (1.0-1.7) Test 10/03/19 08:10 O2 Saturation 97 % (92-99) Arterial Blood pH 7.46 (7.35-7.45) Arterial Blood pCO2 at Patient Temp 31 mmHg (35-46) Arterial Blood pO2 at Patient Temp 117 mmHg (75-108) Arterial Blood HCO3 22 mmol/L (21-28) Arterial Blood Base Excess -2 mmol/L (-3-3) FiO2 35 Laboratory Tests Test 10/02/19 10:45 10/02/19 12:11 10/02/19 17:52 10/03/19 00:23 O2 Saturation 98 % (92-99) Arterial Blood pH 7.45 (7.35-7.45) Arterial Blood pCO2 at Patient Temp 34 mmHg (35-46) Arterial Blood pO2 at Patient Temp 146 mmHg (75-108) Arterial Blood HCO3 23 mmol/L (21-28) Arterial Blood Base Excess -1 mmol/L (-3-3) FiO2 40 Glucose (Fingerstick) 159 mg/dL (70-99) 129 mg/dL (70-99) 118 mg/dL (70-99) Test 10/03/19 05:45 10/03/19 05:54 10/03/19 08:10 White Blood Count 8.1 x10^3/uL (4.0-11.0) Red Blood Count 3.28 x10^6/uL (3.50-5.40) Hemoglobin 9.3 g/dL (12.0-15.5) Hematocrit 27.8 % (36.0-47.0) Mean Corpuscular Volume 85 fL (79-100) Mean Corpuscular Hemoglobin 28 pg (25-35) Mean Corpuscular Hemoglobin Concent 34 g/dL (31-37) Red Cell Distribution Width 18.6 % (11.5-14.5) Platelet Count 434 x10^3/uL (140-400) Neutrophils (%) (Auto) 80 % (31-73) Lymphocytes (%) (Auto) 15 % (24-48) Monocytes (%) (Auto) 5 % (0-9) Eosinophils (%) (Auto) 1 % (0-3) Basophils (%) (Auto) 0 % (0-3) Neutrophils # (Auto) 6.4 x10^3/uL (1.8-7.7) Lymphocytes # (Auto) 1.2 x10^3/uL (1.0-4.8) Monocytes # (Auto) 0.4 x10^3/uL (0.0-1.1) Eosinophils # (Auto) 0.1 x10^3/uL (0.0-0.7) Basophils # (Auto) 0.0 x10^3/uL (0.0-0.2) Sodium Level 143 mmol/L (136-145) Potassium Level 3.3 mmol/L (3.5-5.1) Chloride Level 111 mmol/L (98-107) Carbon Dioxide Level 23 mmol/L (21-32) Anion Gap 9 (6-14) Blood Urea Nitrogen 34 mg/dL (7-20) Creatinine 0.7 mg/dL (0.6-1.0) Estimated GFR (Cockcroft-Gault) 88.9 BUN/Creatinine Ratio 49 (6-20) Glucose Level 125 mg/dL (70-99) Calcium Level 8.8 mg/dL (8.5-10.1) Magnesium Level 1.8 mg/dL (1.8-2.4) Total Bilirubin 0.5 mg/dL (0.2-1.0) Aspartate Amino Transf (AST/SGOT) 62 U/L (15-37) Alanine Aminotransferase (ALT/SGPT) 72 U/L (14-59) Alkaline Phosphatase 132 U/L (46-116) Total Protein 4.5 g/dL (6.4-8.2) Albumin 1.1 g/dL (3.4-5.0) Albumin/Globulin Ratio 0.3 (1.0-1.7) Glucose (Fingerstick) 115 mg/dL (70-99) O2 Saturation 97 % (92-99) Arterial Blood pH 7.46 (7.35-7.45) Arterial Blood pCO2 at Patient Temp 31 mmHg (35-46) Arterial Blood pO2 at Patient Temp 117 mmHg (75-108) Arterial Blood HCO3 22 mmol/L (21-28) Arterial Blood Base Excess -2 mmol/L (-3-3) FiO2 35 Microbiology 10/01/19 Gram Stain Evaluation - Final, Resulted 10/01/19 Respiratory Culture, Resulted Pending 09/25/19 Gram Stain - Final, Complete 09/25/19 Aerobic and Anaerobic Culture - Final, Complete 09/25/19 Antimicrobic Susceptibility - Final, Complete 09/25/19 Blood Culture - Final, Complete NO GROWTH AFTER 5 DAYS 09/25/19 Urine Culture - Final, Complete 09/17/19 Gram Stain - Final, Complete 09/17/19 Aerobic Culture - Final, Complete Medications Current Medications Sodium Chloride 1,000 ml @ 1,000 mls/hr Q1H IV Last administered on 07/04/19at 03:00; Start 07/04/19 at 03:00; Stop 07/04/19 at 03:59; Status DC Ondansetron HCl (Zofran) 4 mg 1X ONCE IVP Last administered on 07/04/19at 03:27; Start 07/04/19 at 03:00; Stop 07/04/19 at 03:01; Status DC Morphine Sulfate (Morphine Sulfate) 4 mg 1X ONCE IV ; Start 07/04/19 at 03:00; Stop 07/04/19 at 03:01; Status Cancel Ketorolac Tromethamine (Toradol 30mg Vial) 30 mg 1X ONCE IV Last administered on 07/04/19at 02:54; Start 07/04/19 at 03:00; Stop 07/04/19 at 03:01; Status DC Fentanyl Citrate (Fentanyl 2ml Vial) 25 mcg 1X ONCE IVP Last administered on 07/04/19at 03:23; Start 07/04/19 at 03:30; Stop 07/04/19 at 03:31; Status DC Fentanyl Citrate (Fentanyl 2ml Vial) 100 mcg STK-MED ONCE .ROUTE ; Start 07/04/19 at 03:18; Stop 07/04/19 at 03:18; Status DC Iohexol (Omnipaque 350 Mg/ml) 90 ml 1X ONCE IV Last administered on 07/04/19at 03:25; Start 07/04/19 at 03:30; Stop 07/04/19 at 03:31; Status DC Info (CONTRAST GIVEN -- Rx MONITORING) 1 each PRN DAILY PRN MC SEE COMMENTS; Start 07/04/19 at 03:30; Stop 07/06/19 at 03:29; Status DC Hydromorphone HCl (Dilaudid) 0.5 mg 1X ONCE IV Last administered on 07/04/19at 03:55; Start 07/04/19 at 04:30; Stop 07/04/19 at 04:32; Status DC Ondansetron HCl (Zofran) 4 mg PRN Q8HRS PRN IV NAUSEA/VOMITING 1ST CHOICE; Start 07/04/19 at 05:00; Stop 07/04/19 at 09:27; Status DC Morphine Sulfate (Morphine Sulfate) 2 mg PRN Q2HR PRN IV SEVERE PAIN 7-10 Last administered on 07/05/19at 12:26; Start 07/04/19 at 05:00; Stop 07/05/19 at 14:15; Status DC Sodium Chloride 1,000 ml @ 125 mls/hr Q8H IV Last administered on 07/04/19at 20:56; Start 07/04/19 at 05:00; Stop 07/05/19 at 04:59; Status DC Hydromorphone HCl (Dilaudid) 0.5 mg PRN Q3HRS PRN IV SEVERE PAIN 7-10 Last administered on 07/05/19at 10:06; Start 07/04/19 at 05:00; Stop 07/05/19 at 12:01; Status DC Piperacillin Sod/ Tazobactam Sod 4.5 gm/Sodium Chloride 100 ml @ 200 mls/hr 1X ONCE IV Last administered on 07/04/19at 05:44; Start 07/04/19 at 06:00; Stop 07/04/19 at 06:29; Status DC Ondansetron HCl (Zofran) 4 mg PRN Q4HRS PRN IV NAUSEA/VOMITING 1ST CHOICE Last administered on 10/02/19at 16:02; Start 07/04/19 at 09:30 Insulin Human Lispro (HumaLOG) 0-9 UNITS Q6HRS SQ Last administered on 10/02/19at 12:21; Start 07/04/19 at 09:30 Dextrose (Dextrose 50%-Water Syringe) 12.5 gm PRN Q15MIN PRN IV SEE COMMENTS; Start 07/04/19 at 09:30 Pantoprazole Sodium (PROTONIX VIAL for IV PUSH) 40 mg DAILYAC IVP Last administered on 10/03/19at 08:31; Start 07/04/19 at 11:30 Prochlorperazine Edisylate (Compazine) 10 mg PRN Q6HRS PRN IV NAUSEA/VOMITING, 2nd CHOICE Last administered on 09/28/19at 14:33; Start 07/04/19 at 17:45 Atenolol (Tenormin) 100 mg DAILY PO ; Start 07/05/19 at 09:00; Stop 07/04/19 at 20:08; Status DC Metoprolol Tartrate (Lopressor Vial) 2.5 mg Q6HRS IVP Last administered on 07/05/19at 05:51; Start 07/04/19 at 20:15; Stop 07/05/19 at 10:02; Status DC Metoprolol Tartrate (Lopressor Vial) 5 mg Q6HRS IVP Last administered on 07/14/19at 00:12; Start 07/05/19 at 10:15; Stop 07/16/19 at 08:48; Status DC Hydromorphone HCl (Dilaudid) 1 mg PRN Q3HRS PRN IV SEVERE PAIN 7-10 Last administered on 07/11/19at 05:13; Start 07/05/19 at 12:00; Stop 07/19/19 at 00:25; Status DC Lidocaine HCl (Buffered Lidocaine 1%) 3 ml STK-MED ONCE .ROUTE ; Start 07/05/19 at 12:55; Stop 07/05/19 at 12:56; Status DC Albumin Human 500 ml @ 125 mls/hr 1X ONCE IV Last administered on 07/05/19at 1 4:33; Start 07/05/19 at 14:30; Stop 07/05/19 at 18:32; Status DC Norepinephrine Bitartrate 8 mg/ Dextrose 258 ml @ 17.299 mls/ hr CONT PRN IV PER PROTOCOL Last administered on 08/02/19at 12:48; Start 07/05/19 at 15:30; Stop 08/05/19 at 09:19; Status DC Sodium Chloride 1,000 ml @ 125 mls/hr Q8H IV Last administered on 07/05/19at 21:04; Start 07/05/19 at 16:00; Stop 07/06/19 at 02:42; Status DC Albumin Human 500 ml @ 125 mls/hr PRN BID PRN IV After every 2L NSS & BP < 90mm Last administered on 09/24/19at 11:40; Start 07/05/19 at 16:00 Iohexol (Omnipaque 300 Mg/ml) 60 ml 1X ONCE IV Last administered on 07/05/19at 17:20; Start 07/05/19 at 17:00; Stop 07/05/19 at 17:01; Status DC Info (CONTRAST GIVEN -- Rx MONITORING) 1 each PRN DAILY PRN MC SEE COMMENTS; Start 07/05/19 at 17:00; Stop 07/07/19 at 16:59; Status DC Meropenem 1 gm/ Sodium Chloride 100 ml @ 200 mls/hr Q8HRS IV Last administered on 07/06/19at 05:45; Start 07/05/19 at 20:00; Stop 07/06/19 at 08:48; Status DC Furosemide (Lasix) 40 mg 1X ONCE IVP Last administered on 07/05/19at 22:12; Start 07/05/19 at 22:30; Stop 07/05/19 at 22:31; Status DC Calcium Chloride 1000 mg/Sodium Chloride 110 ml @ 220 mls/hr 1X ONCE IV Last administered on 07/05/19at 22:11; Start 07/05/19 at 22:30; Stop 07/05/19 at 22:59; Status DC Albuterol Sulfate (Ventolin Neb Soln) 2.5 mg 1X ONCE NEB Last administered on 07/06/19at 00:56; Start 07/05/19 at 22:30; Stop 07/05/19 at 22:31; Status DC Insulin Human Regular (HumuLIN R VIAL) 5 unit 1X ONCE IV Last administered on 07/05/19at 22:14; Start 07/05/19 at 22:30; Stop 07/05/19 at 22:31; Status DC Magnesium Sulfate 50 ml @ 25 mls/hr 1X ONCE IV Last administered on 07/06/19at 02:57; Start 07/06/19 at 03:00; Stop 07/06/19 at 04:59; Status DC Calcium Gluconate 1000 mg/Sodium Chloride 110 ml @ 220 mls/hr 1X ONCE IV Last administered on 07/06/19at 02:46; Start 07/06/19 at 03:00; Stop 07/06/19 at 03: 29; Status DC Sodium Chloride 1,000 ml @ 200 mls/hr Q5H IV Last administered on 07/06/19at 02:46; Start 07/06/19 at 03:00; Stop 07/06/19 at 10:21; Status DC Calcium Gluconate 1000 mg/Sodium Chloride 110 ml @ 220 mls/hr 1X ONCE IV Last administered on 07/06/19at 03:21; Start 07/06/19 at 03:30; Stop 07/06/19 at 03:59; Status DC Sodium Bicarbonate 50 meq/Sodium Chloride 1,050 ml @ 75 mls/hr Q14H IV Last administered on 07/10/19at 21:10; Start 07/06/19 at 07:30; Stop 07/11/19 at 10:28; Status DC Calcium Gluconate 2000 mg/Sodium Chloride 120 ml @ 220 mls/hr 1X ONCE IV Last administered on 07/06/19at 09:05; Start 07/06/19 at 07:30; Stop 07/06/19 at 08:02; Status DC Lidocaine HCl (Xylocaine-Mpf 1% 2ml Vial) 2 ml STK-MED ONCE .ROUTE ; Start 07/06/19 at 08:47; Stop 07/06/19 at 08:47; Status DC Meropenem 500 mg/ Sodium Chloride 50 ml @ 100 mls/hr Q12HR IV Last administered on 07/11/19at 21:01; Start 07/06/19 at 18:00; Stop 07/12/19 at 07:58; Status DC Lidocaine HCl (Buffered Lidocaine 1%) 3 ml STK-MED ONCE .ROUTE ; Start 07/06/19 at 09:46; Stop 07/06/19 at 09:46; Status DC Lidocaine HCl (Buffered Lidocaine 1%) 6 ml 1X ONCE INJ Last administered on 07/06/19at 10:26; Start 07/06/19 at 10:15; Stop 07/06/19 at 10:16; Status DC Info (Tpn Per Pharmacy) 1 each PRN DAILY PRN MC SEE COMMENTS Last administered on 10/02/19at 10:30; Start 07/06/19 at 12:00 Sodium Chloride 1,000 ml @ 1,000 mls/hr Q1H PRN IV hypotension; Start 07/06/19 at 12:07; Stop 07/06/19 at 18:06; Status DC Diphenhydramine HCl (Benadryl) 25 mg 1X PRN PRN IV ITCHING; Start 07/06/19 at 12:15; Stop 07/07/19 at 12:14; Status DC Diphenhydramine HCl (Benadryl) 25 mg 1X PRN PRN IV ITCHING; Start 07/06/19 at 12:15; Stop 07/07/19 at 12:14; Status DC Sodium Chloride 1,000 ml @ 400 mls/hr Q2H30M PRN IV PATENCY; Start 07/06/19 at 12:07; Stop 07/07/19 at 00:06; Status DC Info (PHARMACY MONITORING -- do not chart) 1 each PRN DAILY PRN MC SEE COMMENTS; Start 07/06/19 at 12:15; Stop 07/08/19 at 08:13; Status DC Sodium Chloride 90 meq/Calcium Gluconate 10 meq/ Multivitamins 10 ml/Chromium/ Copper/Manganese/ Seleni/Zn 1 ml/ Total Parenteral Nutrition/Amino Acids/Dextrose/ Fat Emulsion Intravenous 55.005 ml @ 2.292 mls/hr TPN CONT IV ; Start 07/06/19 at 22:00; Stop 07/06/19 at 12:33; Status DC Info (Tpn Per Pharmacy) 1 each PRN DAILY PRN MC SEE COMMENTS; Start 07/06/19 at 12:30; Status UNV Sodium Chloride 90 meq/Calcium Gluconate 10 meq/ Multivitamins 10 ml/Chromium/ Copper/Manganese/ Seleni/Zn 0.5 ml/ Total Parenteral Nutrition/Amino Acids/Dextrose/ Fat Emulsion Intravenous 1,512 ml @ 63 mls/hr TPN CONT IV Last administered on 07/06/19at 22:06; Start 07/06/19 at 22:00; Stop 07/07/19 at 21:59; Status DC Calcium Carbonate/ Glycine (Tums) 500 mg PRN AFTMEALHC PRN PO INDIGESTION; Start 07/06/19 at 17:45; Stop 08/31/19 at 10:25; Status DC Calcium Gluconate (Calcium Gluconate) 2,000 mg 1X ONCE IVP Last administered on 07/07/19at 02:19; Start 07/07/19 at 02:15; Stop 07/07/19 at 02:16; Status DC Calcium Chloride 3000 mg/Sodium Chloride 1,030 ml @ 50 mls/hr [id number] IV Last administered on 07/09/19at 02:17; Start 07/07/19 at 08:00; Stop 07/09/19 at 15:23; Status DC Lorazepam (Ativan Inj) 1 mg PRN Q4HRS PRN IVP ANXIETY / AGITATION, 2nd choic Last administered on 08/05/19at 03:51; Start 07/07/19 at 09:00; Stop 08/05/19 at 09:19; Status DC Sodium Chloride 1,000 ml @ 1,000 mls/hr Q1H PRN IV hypotension; Start 07/07/19 at 08:56; Stop 07/07/19 at 14:55; Status DC Albumin Human 200 ml @ 200 mls/hr 1X PRN PRN IV Hypotension; Start 07/07/19 at 09:00; Stop 07/07/19 at 14:59; Status DC Diphenhydramine HCl (Benadryl) 25 mg 1X PRN PRN IV ITCHING; Start 07/07/19 at 09:00; Stop 07/08/19 at 08:59; Status DC Diphenhydramine HCl (Benadryl) 25 mg 1X PRN PRN IV ITCHING; Start 07/07/19 at 09:00; Stop 07/08/19 at 08:59; Status DC Sodium Chloride 1,000 ml @ 400 mls/hr Q2H30M PRN IV PATENCY; Start 07/07/19 at 08:56; Stop 07/07/19 at 20:55; Status DC Info (PHARMACY MONITORING -- do not chart) 1 each PRN DAILY PRN MC SEE COMMENTS; Start 07/07/19 at 09:00; Status UNV Info (PHARMACY MONITORING -- do not chart) 1 each PRN DAILY PRN MC SEE COMMENTS; Start 07/07/19 at 09:00; Stop 07/08/19 at 08:13; Status DC Digoxin (Lanoxin) 500 mcg 1X ONCE IV Last administered on 07/07/19at 10:04; Start 07/07/19 at 10:00; Stop 07/07/19 at 10:01; Status DC Digoxin (Lanoxin) 125 mcg 1X ONCE IV Last administered on 07/07/19at 17:10; Start 07/07/19 at 18:00; Stop 07/07/19 at 18:01; Status DC Magnesium Sulfate 100 ml @ 25 mls/hr 1X ONCE IV Last administered on 07/07/19at 12:48; Start 07/07/19 at 13:00; Stop 07/07/19 at 16:59; Status DC Sodium Chloride 90 meq/Magnesium Sulfate 10 meq/ Calcium Gluconate 20 meq/ Multi vitamins 10 ml/Chromium/ Copper/Manganese/ Seleni/Zn 0.5 ml/ Total Parenteral Nutrition/Amino Acids/Dextrose/ Fat Emulsion Intravenous 1,512 ml @ 63 mls/hr TPN CONT IV Last administered on 07/07/19at 22:25; Start 07/07/19 at 22:00; Stop 07/08/19 at 21:59; Status DC Sodium Chloride 1,000 ml @ 1,000 mls/hr Q1H PRN IV hypotension; Start 07/08/19 at 08:05; Stop 07/08/19 at 14:04; Status DC Albumin Human 200 ml @ 200 mls/hr 1X ONCE IV Last administered on 07/08/19at 08:57; Start 07/08/19 at 08:15; Stop 07/08/19 at 09:14; Status DC Diphenhydramine HCl (Benadryl) 25 mg 1X PRN PRN IV ITCHING; Start 07/08/19 at 08:15; Stop 07/09/19 at 08:14; Status DC Diphenhydramine HCl (Benadryl) 25 mg 1X PRN PRN IV ITCHING; Start 07/08/19 at 08:15; Stop 07/09/19 at 08:14; Status DC Sodium Chloride 1,000 ml @ 400 mls/hr Q2H30M PRN IV PATENCY; Start 07/08/19 at 08:05; Stop 07/08/19 at 20:04; Status DC Info (PHARMACY MONITORING -- do not chart) 1 each PRN DAILY PRN MC SEE COMMENTS; Start 07/08/19 at 08:15; Stop 07/12/19 at 07:57; Status DC Sodium Chloride 90 meq/Potassium Chloride 15 meq/ Potassium Phosphate 10 mmol/ Magnesium Sulfate 10 meq/Calcium Gluconate 20 meq/ Multivitamins 10 ml/Chromium/ Copper/Manganese/ Seleni/Zn 0.5 ml/ Total Parenteral Nutrition/Amino Acids /Dextrose/ Fat Emulsion Intravenous 1,512 ml @ 63 mls/hr TPN CONT IV Last administered on 07/08/19at 21:01; Start 07/08/19 at 22:00; Stop 07/09/19 at 21:59; Status DC Potassium Chloride/Water 100 ml @ 100 mls/hr 1X ONCE IV Last administered on 07/08/19at 14:09; Start 07/08/19 at 14:00; Stop 07/08/19 at 14:59; Status DC Benzocaine (Hurricaine One) 1 spray 1X ONCE MM Last administered on 07/08/19at 16:38; Start 07/08/19 at 14:30; Stop 07/08/19 at 14:31; Status DC Lidocaine HCl (Glydo (Lidocaine) Jelly) 1 ramu 1X ONCE MM Last administered on 07/08/19at 16:38; Start 07/08/19 at 14:30; Stop 07/08/19 at 14:31; Status DC Linezolid/Dextrose 300 ml @ 300 mls/hr Q12HR IV Last administered on 07/14/19at 21:04; Start 07/08/19 at 20:00; Stop 07/15/19 at 07:50; Status DC Acetaminophen (Tylenol) 650 mg PRN Q6HRS PRN PO MILD PAIN / TEMP; Start 07/09/19 at 03:30; Stop 07/09/19 at 03:36; Status DC Acetaminophen (Tylenol) 650 mg PRN Q6HRS PRN PEG MILD PAIN / TEMP Last administered on 08/04/19at 19:56; Start 07/09/19 at 03:36; Stop 08/31/19 at 10:25; Status DC Sodium Chloride 1,000 ml @ 1,000 mls/hr Q1H PRN IV hypotension; Start 07/09/19 at 07:50; Stop 07/09/19 at 13:49; Status DC Albumin Human 200 ml @ 200 mls/hr 1X PRN PRN IV Hypotension; Start 07/09/19 at 08:00; Stop 07/09/19 at 13:59; Status DC Sodium Chloride (Normal Saline Flush) 10 ml 1X PRN PRN IV AP catheter pack; Start 07/09/19 at 08:00; Stop 07/10/19 at 07:59; Status DC Sodium Chloride (Normal Saline Flush) 10 ml 1X PRN PRN IV [employer] catheter pack; St art 07/09/19 at 08:00; Stop 07/10/19 at 07:59; Status DC Sodium Chloride 1,000 ml @ 400 mls/hr Q2H30M PRN IV PATENCY; Start 07/09/19 at 07:50; Stop 07/09/19 at 19:49; Status DC Info (PHARMACY MONITORING -- do not chart) 1 each PRN DAILY PRN MC SEE COMME NTS; Start 07/09/19 at 08:00; Status UNV Info (PHARMACY MONITORING -- do not chart) 1 each PRN DAILY PRN MC SEE COMMENTS; Start 07/09/19 at 08:00; Stop 07/11/19 at 08:25; Status DC Sodium Chloride 90 meq/Potassium Chloride 15 meq/ Potassium Phosphate 10 mmol/ Magnesium Sulfate 10 meq/Calcium Gluconate 20 meq/ Multivitamins 10 ml/Chromium/ Copper/Manganese/ Seleni/Zn 0.5 ml/ Total Parenteral Nutrition/Amino Acids/Dextrose/ Fat Emulsion Intravenous 1,512 ml @ 63 mls/hr TPN CONT IV Last administered on 07/09/19at 20:57; Start 07/09/19 at 22:00; Stop 07/10/19 at 21:59; Status DC Sodium Chloride 90 meq/Potassium Chloride 15 meq/ Potassium Phosphate 15 mmol/ Magnesium Sulfate 10 meq/Calcium Gluconate 20 meq/ Multivitamins 10 ml/Chromium/ Copper/Manganese/ Seleni/Zn 0.5 ml/ Total Parenteral Nutrition/Amino Acids/Dextrose/ Fat Emulsion Intravenous 1,512 ml @ 63 mls/hr TPN CONT IV ; Start 07/10/19 at 22:00; Stop 07/10/19 at 14:16; Status DC Sodium Chloride 90 meq/Potassium Chloride 15 meq/ Potassium Phosphate 15 mmol/ Magnesium Sulfate 10 meq/Calcium Gluconate 20 meq/ Multivitamins 10 ml/Chromium/ Copper/Manganese/ Seleni/Zn 0.5 ml/ Total Parenteral Nutrition/Amino Acids/Dextrose/ Fat Emulsion Intravenous 1,200 ml @ 50 mls/hr TPN CONT IV ; Start 07/10/19 at 22:00; Stop 07/10/19 at 14:17; Status DC Sodium Chloride 90 meq/Potassium Chloride 15 meq/ Potassium Phosphate 10 mmol/ Magnesium Sulfate 10 meq/Calcium Gluconate 20 meq/ Multivitamins 10 ml/Chromium/ Copper/Manganese/ Seleni/Zn 0.5 ml/ Total Parenteral Nutrition/Amino Acids/Dextrose/ Fat Emulsion Intravenous 1,200 ml @ 50 mls/hr TPN CONT IV Last administered on 07/10/19at 23:29; Start 07/10/19 at 22:00; Stop 07/11/19 at 21:59; Status DC Sodium Chloride 1,000 ml @ 1,000 mls/hr Q1H PRN IV hypotension; Start 07/11/19 at 07:28; Stop 07/11/19 at 13:27; Status DC Albumin Human 200 ml @ 200 mls/hr 1X ONCE IV Last administered on 07/11/19at 08:51; Start 07/11/19 at 07:30; Stop 07/11/19 at 08:29; Status DC Diphenhydramine HCl (Benadryl) 25 mg 1X PRN PRN IV ITCHING; Start 07/11/19 at 07:30; Stop 07/12/19 at 07:29; Status DC Diphenhydramine HCl (Benadryl) 25 mg 1X PRN PRN IV ITCHING; Start 07/11/19 at 07:30; Stop 07/12/19 at 07:29; Status DC Sodium Chloride 1,000 ml @ 400 mls/hr Q2H30M PRN IV PATENCY; Start 07/11/19 at 07:28; Stop 07/11/19 at 19:27; Status DC Info (PHARMACY MONITORING -- do not chart) 1 each PRN DAILY PRN [facility] SEE COMMENTS; Start 07/11/19 at 07:30; Stop 07/22/19 at 13:01; Status DC Metronidazole 100 ml @ 100 mls/hr Q6HRS IV Last administered on 07/27/19at 06:26; Start 07/11/19 at 08:30; Stop 07/27/19 at 09:58; Status DC Micafungin Sodium 100 mg/Dextrose 100 ml @ 100 mls/hr Q24H IV Last administered on 08/18/19at 08:18; Start 07/11/19 at 09:00; Stop 08/18/19 at 20:58; Status DC Propofol 0 ml @ As Directed STK-MED ONCE IV ; Start 07/11/19 at 07:53; Stop 07/11/19 at 07:53; Status DC Etomidate (Amidate) 20 mg STK-MED ONCE IV ; Start 07/11/19 at 07:53; Stop 07/11/19 at 07:54; Status DC Midazolam HCl (Versed) 5 mg STK-MED ONCE .ROUTE ; Start 07/11/19 at 07:57; Stop 07/11/19 at 07:57; Status DC Fentanyl Citrate 30 ml @ 0 mls/hr CONT PRN IV SEE PROTOCOL Last administered on 08/05/19at 06:12; Start 07/11/19 at 08:15; Stop 08/05/19 at 09:19; Status DC Artificial Tears (Artificial Tears) 1 drop PRN Q1HR PRN OU DRY EYE, 1st choice; Start 07/11/19 at 08:15; Stop 08/17/19 at 05:31; Status DC Midazolam HCl 50 mg/Sodium Chloride 50 ml @ 0 mls/hr CONT PRN IV SEE PROTOCOL Last administered on 07/14/19at 22:39; Start 07/11/19 at 08:15; Stop 07/16/19 at 15:59; Status DC Etomidate (Amidate) 8 mg 1X ONCE IV Last administered on 07/11/19at 08:33; Start 07/11/19 at 08:30; Stop 07/11/19 at 08:31; Status DC Succinylcholine Chloride (Anectine) 120 mg 1X ONCE IV Last administered on 07/11/19at 08:34; Start 07/11/19 at 08:30; Stop 07/11/19 at 08:31; Status DC Midazolam HCl (Versed) 5 mg 1X ONCE IV ; Start 07/11/19 at 08:30; Stop 07/11/19 at 08:31; Status DC Potassium Chloride 15 meq/ Bicarbonate Dialysis Soln w/ out KCl 5,007.5 ml @ 1,000 mls/ hr Q5H1M IV Last administered on 07/12/19at 11:11; Start 07/11/19 at 12:00; Stop 07/12/19 at 11:15; Status DC Potassium Chloride 15 meq/ Bicarbonate Dialysis Soln w/ out KCl 5,007.5 ml @ 1,000 mls/ hr Q5H1M IV Last administered on 07/12/19at 11:12; Start 07/11/19 at 12:00; Stop 07/12/19 at 11:17; Status DC Potassium Chloride 15 meq/ Bicarbonate Dialysis Soln w/ out KCl 5,007.5 ml @ 1,000 mls/ hr Q5H1M IV Last administered on 07/12/19at 11:11; Start 07/11/19 at 12:00; Stop 07/12/19 at 11:19; Status DC Sodium Chloride 90 meq/Potassium Chloride 15 meq/ Potassium Phosphate 10 mmol/ Magnesium Sulfate 10 meq/Calcium Gluconate 20 meq/ Multivitamins 10 ml/Chromium/ Copper/Manganese/ Seleni/Zn 0.5 ml/ Total Parenteral Nutrition/Amino Acids/Dextrose/ Fat Emulsion Intravenous 1,400 ml @ 58.333 mls/ hr TPN CONT IV Last administered on 07/11/19at 21:42; Start 07/11/19 at 22:00; Stop 07/12/19 at 21:59; Status DC Heparin Sodium (Porcine) (Heparin Sodium) 5,000 unit Q8HRS SQ Last administered on 07/16/19at 05:55; Start 07/11/19 at 15:00; Stop 07/16/19 at 13:28; Status DC Meropenem 500 mg/ Sodium Chloride 50 ml @ 100 mls/hr Q6HRS IV Last administered on 07/13/19at 06:00; Start 07/12/19 at 09:00; Stop 07/13/19 at 07:29; Status DC Potassium Phosphate 20 mmol/ Sodium Chloride 106.6667 ml @ 51.667 m... 1X ONCE IV Last administered on 07/12/19at 11:22; Start 07/12/19 at 10:15; Stop 07/12/19 at 12:18; Status DC Acetaminophen (Tylenol Supp) 650 mg PRN Q6HRS PRN PA MILD PAIN / TEMP > 100.3'F Last administered on 09/28/19at 22:16; Start 07/12/19 at 10:30 Potassium Chloride/Water 100 ml @ 100 mls/hr Q1H IV Last administered on 07/12/19at 12:12; Start 07/12/19 at 11:00; Stop 07/12/19 at 12:59; Status DC Potassium Chloride 20 meq/ Bicarbonate Dialysis Soln w/ out KCl 5,010 ml @ 1,000 mls/hr Q5H1M IV Last administered on 07/13/19at 08:48; Start 07/12/19 at 12:00; Stop 07/13/19 at 13:03; Status DC Potassium Chloride 20 meq/ Bicarbonate Dialysis Soln w/ out KCl 5,010 ml @ 1,000 mls/hr Q5H1M IV Last administered on 07/17/19at 14:52; Start 07/12/19 at 11:30; Stop 07/17/19 at 19:59; Status DC Potassium Chloride 20 meq/ Bicarbonate Dialysis Soln w/ out KCl 5,010 ml @ 1,000 mls/hr Q5H1M IV Last administered on 07/17/19at 14:53; Start 07/12/19 at 11:30; Stop 07/17/19 at 19:59; Status DC Sodium Chloride 90 meq/Potassium Chloride 15 meq/ Potassium Phosphate 15 mmol/ Magnesium Sulfate 10 meq/Calcium Gluconate 15 meq/ Multivitamins 10 ml/Chromium/ Copper/Manganese/ Seleni/Zn 0.5 ml/ Total Parenteral Nutrition/Amino Acids/Dextrose/ Fat Emulsion Intravenous 1,400 ml @ 58.333 mls/ hr TPN CONT IV Last administered on 07/12/19at 22:17; Start 07/12/19 at 22:00; Stop 07/13/19 at 21:59; Status DC Cefepime HCl (Maxipime) 2 gm Q12HR IVP Last administered on 07/26/19at 20:56; Start 07/13/19 at 09:00; Stop 07/27/19 at 09:58; Status DC Daptomycin 500 mg/ Sodium Chloride 50 ml @ 100 mls/hr Q48H IV Last administered on 07/29/19at 09:57; Start 07/13/19 at 08:30; Stop 07/29/19 at 10:07; Status DC Lidocaine HCl (Buffered Lidocaine 1%) 3 ml 1X ONCE INJ Last administered on 07/13/19at 10:27; Start 07/13/19 at 10:30; Stop 07/13/19 at 10:31; Status DC Potassium Phosphate 20 mmol/ Sodium Chloride 106.6667 ml @ 51.667 m... 1X ONCE IV Last administered on 07/13/19at 12:51; Start 07/13/19 at 13:00; Stop 07/13/19 at 15:03; Status DC Sodium Chloride 90 meq/Potassium Chloride 15 meq/ Potassium Phosphate 18 mmol/ Magnesium Sulfate 8 meq/Calcium Gluconate 15 meq/ Multivitamins 10 ml/Chromium/ Copper/Manganese/ Seleni/Zn 0.5 ml/ Total Parenteral Nutrition/Amino Acids/Dextrose/ Fat Emulsion Intravenous 1,400 ml @ 58.333 mls/ hr TPN CONT IV Last administered on 07/13/19at 22:16; Start 07/13/19 at 22:00; Stop 07/14/19 at 21:59; Status DC Potassium Chloride 20 meq/ Bicarbonate Dialysis Soln w/ out KCl 5,010 ml @ 1,000 mls/hr Q5H1M IV Last administered on 07/17/19at 14:54; Start 07/13/19 at 16:00; Stop 07/17/19 at 19:59; Status DC Multi-Ingred Cream/Lotion/Oil/ Oint (Artificial Tears Eye Ointment) 1 ramu PRN Q1HR PRN OU DRY EYE, 2nd choice Last administered on 08/01/19at 08:19; Start 07/13/19 at 17:30; Stop 09/21/19 at 14:39; Status DC Sodium Chloride 90 meq/Potassium Chloride 15 meq/ Potassium Phosphate 18 mmol/ Magnesium Sulfate 8 meq/Calcium Gluconate 15 meq/ Multivitamins 10 ml/Chromium/ Copper/Manganese/ Seleni/Zn 0.5 ml/ Total Parenteral Nutrition/Amino Acids/Dextrose/ Fat Emulsion Intravenous 1,400 ml @ 58.333 mls/ hr TPN CONT IV Last administered on 07/14/19at 22:00; Start 07/14/19 at 22:00; Stop 07/15/19 at 21:59; Status DC Albumin Human 500 ml @ 125 mls/hr 1X ONCE IV ; Start 07/14/19 at 14:15; Stop 07/14/19 at 18:14; Status DC Sodium Chloride 90 meq/Potassium Chloride 15 meq/ Potassium Phosphate 18 mmol/ Magnesium Sulfate 8 meq/Calcium Gluconate 15 meq/ Multivitamins 10 ml/Chromium/ Copper/Manganese/ Seleni/Zn 0.5 ml/ Insulin Human Regular 10 unit/ Total Parenteral Nutrition/Amino Acids/Dextrose/ Fat Emulsion Intravenous 1,400 ml @ 58.333 mls/ hr TPN CONT IV Last administered on 07/15/19at 21:43; Start 07/15/19 at 22:00; Stop 07/16/19 at 21:59; Status DC Lidocaine HCl (Buffered Lidocaine 1%) 3 ml STK-MED ONCE .ROUTE ; Start 07/13/19 at 10:00; Stop 07/15/19 at 13:57; Status DC Midazolam HCl 100 mg/Sodium Chloride 100 ml @ 7 mls/hr CONT PRN IV SEE PROTOCOL Last administered on 07/27/19at 15:35; Start 07/16/19 at 16:00; Stop 09/21/19 at 14:38; Status DC Sodium Chloride 90 meq/Potassium Chloride 15 meq/ Potassium Phosphate 18 mmol/ Magnesium Sulfate 8 meq/Calcium Gluconate 15 meq/ Multivitamins 10 ml/Chromium/ Copper/Manganese/ Seleni/Zn 0.5 ml/ Insulin Human Regular 15 unit/ Total Parenteral Nutrition/Amino Acids/Dextrose/ Fat Emulsion Intravenous 1,400 ml @ 58.333 mls/ hr TPN CONT IV Last administered on 07/16/19at 20:34; Start 07/16/19 at 22:00; Stop 07/17/19 at 21:59; Status DC Info (Icu Electrolyte Protocol) 1 ea CONT PRN PRN [facility] PER PROTOCOL; Start 07/17/19 at 13:15 Sodium Chloride 90 meq/Potassium Chloride 15 meq/ Potassium Phosphate 18 mmol/ Magnesium Sulfate 8 meq/Calcium Gluconate 15 meq/ Multivitamins 10 ml/Chromium/ Copper/Manganese/ Seleni/Zn 0.5 ml/ Insulin Human Regular 15 unit/ Total Parenteral Nutrition/Amino Acids/Dextrose/ Fat Emulsion Intravenous 1,400 ml @ 58.333 mls/ hr TPN CONT IV Last administered on 07/17/19at 22:05; Start 07/17/19 at 22:00; Stop 07/18/19 at 21:59; Status DC Potassium Chloride 15 meq/ Bicarbonate Dialysis Soln w/ out KCl 5,007.5 ml @ 1,000 mls/ hr Q5H1M IV Last administered on 07/20/19at 18:14; Start 07/17/19 at 20:00; Stop 07/21/19 at 13:08; Status DC Potassium Chloride 15 meq/ Bicarbonate Dialysis Soln w/ out KCl 5,007.5 ml @ 1,000 mls/ hr Q5H1M IV Last administered on 07/20/19at 18:14; Start 07/17/19 at 20:00; Stop 07/21/19 at 13:08; Status DC Potassium Chloride 15 meq/ Bicarbonate Dialysis Soln w/ out KCl 5,007.5 ml @ 1,000 mls/ hr Q5H1M IV Last administered on 07/20/19at 18:14; Start 07/17/19 at 20:00; Stop 07/21/19 at 13:08; Status DC Iohexol (Omnipaque 240 Mg/ml) 30 ml 1X ONCE PO Last administered on 07/18/19at 11:30; Start 07/18/19 at 11:30; Stop 07/18/19 at 11:33; Status DC Info (CONTRAST GIVEN -- Rx MONITORING) 1 each PRN DAILY PRN MC SEE COMMENTS; Start 07/18/19 at 11:45; Stop 07/20/19 at 11:44; Status DC Sodium Chloride 90 meq/Potassium Chloride 15 meq/ Potassium Phosphate 18 mmol/ Magnesium Sulfate 8 meq/Calcium Gluconate 15 meq/ Multivitamins 10 ml/Chromium/ Copper/Manganese/ Seleni/Zn 0.5 ml/ Insulin Human Regular 15 unit/ Total Parenteral Nutrition/Amino Acids/Dextrose/ Fat Emulsion Intravenous 1,400 ml @ 58.333 mls/ hr TPN CONT IV Last administered on 07/18/19at 21:47; Start 07/18/19 at 22:00; Stop 07/19/19 at 21:59; Status DC Sodium Chloride 90 meq/Potassium Chloride 15 meq/ Potassium Phosphate 18 mmol/ Magnesium Sulfate 8 meq/Calcium Gluconate 15 meq/ Multivitamins 10 ml/Chromium/ Copper/Manganese/ Seleni/Zn 0.5 ml/ Insulin Human Regular 20 unit/ Total Par enteral Nutrition/Amino Acids/Dextrose/ Fat Emulsion Intravenous 1,400 ml @ 58.333 mls/ hr TPN CONT IV Last administered on 07/19/19at 21:36; Start 07/19/19 at 22:00; Stop 07/20/19 at 21:59; Status DC Alteplase, Recombinant (Cathflo For Central Catheter Clearance) 1 mg 1X ONCE INT CAT Last administered on 07/19/19at 20:03; Start 07/19/19 at 19:30; Stop 07/19/19 at 19:46; Status DC Alteplase, Recombinant (Cathflo For Central Catheter Clearance) 1 mg 1X ONCE INT CAT Last administered on 07/19/19at 22:05; Start 07/19/19 at 22:00; Stop 07/19/19 at 22:01; Status DC Sodium Chloride 90 meq/Potassium Chloride 15 meq/ Potassium Phosphate 18 mmol/ Magnesium Sulfate 8 meq/Calcium Gluconate 15 meq/ Multivitamins 10 ml/Chromium/ Copper/Manganese/ Seleni/Zn 0.5 ml/ Insulin Human Regular 20 unit/ Total Parenteral Nutrition/Amino Acids/Dextrose/ Fat Emulsion Intravenous 1,400 ml @ 58.333 mls/ hr TPN CONT IV Last administered on 07/20/19at 21:30; Start 07/20/19 at 22:00; Stop 07/21/19 at 21:59; Status DC Dexmedetomidine HCl 400 mcg/ Sodium Chloride 100 ml @ 0 mls/hr CONT PRN IV ANXIETY / AGITATION Last administered on 09/17/19at 12:57; Start 07/21/19 at 08:15; Stop 09/17/19 at 18:31; Status DC Sodium Chloride 500 ml @ 500 mls/hr 1X PRN PRN IV ELEVATED BP, SEE COMMENTS; Start 07/21/19 at 08:15 Atropine Sulfate (ATROPINE 0.5mg SYRINGE) 0.5 mg PRN Q5MIN PRN IV SEE COMMENTS; Start 07/21/19 at 08:15 Furosemide (Lasix) 20 mg 1X ONCE IVP Last administered on 07/21/19at 08:19; Start 07/21/19 at 08:15; Stop 07/21/19 at 08:16; Status DC Lidocaine HCl (Buffered Lidocaine 1%) 3 ml STK-MED ONCE .ROUTE ; Start 07/21/19 at 08:39; Stop 07/21/19 at 08:39; Status DC Lidocaine HCl (Buffered Lidocaine 1%) 6 ml 1X ONCE INJ Last administered on 07/21/19at 09:05; Start 07/21/19 at 09:00; Stop 07/21/19 at 09:06; Status DC Sodium Chloride 90 meq/Potassium Chloride 15 meq/ Potassium Phosphate 18 mmol/ Magnesium Sulfate 8 meq/Calcium Gluconate 15 meq/ Multivitamins 10 ml/Chromium/ Copper/Manganese/ Seleni/Zn 0.5 ml/ Insulin Human Regular 20 unit/ Total Parenteral Nutrition/Amino Acids/Dextrose/ Fat Emulsion Intravenous 1,400 ml @ 58.333 mls/ hr TPN CONT IV Last administered on 07/21/19at 22:45; Start 07/21/19 at 22:00; Stop 07/22/19 at 21:59; Status DC Sodium Chloride 1,000 ml @ 1,000 mls/hr Q1H PRN IV hypotension; Start 07/22/19 at 07:30; Stop 07/22/19 at 13:29; Status DC Albumin Human 200 ml @ 200 mls/hr 1X PRN PRN IV Hypotension Last administered on 07/22/19at 09:36; Start 07/22/19 at 07:30; Stop 07/22/19 at 13:29; Status DC Sodium Chloride (Normal Saline Flush) 10 ml 1X PRN PRN IV AP catheter pack; Start 07/22/19 at 07:30; Stop 07/22/19 at 21:29; Status DC Sodium Chloride (Normal Saline Flush) 10 ml 1X PRN PRN IV [employer] catheter pack; Start 07/22/19 at 07:30; Stop 07/23/19 at 07:29; Status DC Sodium Chloride 1,000 ml @ 400 mls/hr Q2H30M PRN IV PATENCY; Start 07/22/19 at 07:30; Stop 07/22/19 at 19:29; Status DC Info (PHARMACY MONITORING -- do not chart) 1 each PRN DAILY PRN MC SEE COMMENTS; Start 07/22/19 at 07:30; Stop 07/22/19 at 13:02; Status DC Info (PHARMACY MONITORING -- do not chart) 1 each PRN DAILY PRN MC SEE COMMENTS; Start 07/22/19 at 07:30; Stop 07/24/19 at 12:45; Status DC Sodium Chloride 90 meq/Potassium Chloride 15 meq/ Potassium Phosphate 10 mmol/ Magnesium Sulfate 8 meq/Calcium Gluconate 15 meq/ Multivitamins 10 ml/Chromium/ Copper/Manganese/ Seleni/Zn 0.5 ml/ Insulin Human Regular 25 unit/ Total Parenteral Nutrition/Amino Acids/Dextrose/ Fat Emulsion Intravenous 1,400 ml @ 58.333 mls/ hr TPN CONT IV Last administered on 07/22/19at 22:19; Start 07/22/19 at 22:00; Stop 07/23/19 at 21:59; Status DC Heparin Sodium (Porcine) (Heparin Sodium) 5,000 unit Q12HR SQ Last administered on 08/14/19at 08:59; Start 07/22/19 at 21:00; Stop 08/14/19 at 10:05; Status DC Ondansetron HCl (Zofran) 4 mg PRN Q6HRS PRN IV NAUSEA/VOMITING; Start 07/25/19 at 07:00; Stop 07/26/19 at 06:59; Status DC Fentanyl Citrate (Fentanyl 2ml Vial) 25 mcg PRN Q5MIN PRN IV MILD PAIN 1-3; Start 07/25/19 at 07:00; Stop 07/26/19 at 06:59; Status DC Fentanyl Citrate (Fentanyl 2ml Vial) 50 mcg PRN Q5MIN PRN IV MODERATE TO SEVERE PAIN; Start 07/25/19 at 07:00; Stop 07/26/19 at 06:59; Status DC Ringer's Solution 1,000 ml @ 30 mls/hr Q24H IV ; Start 07/25/19 at 07:00; Stop 07/25/19 at 18:59; Status DC Lidocaine HCl (Xylocaine-Mpf 1% 2ml Vial) 2 ml PRN 1X PRN ID PRIOR TO IV START; Start 07/25/19 at 07:00; Stop 07/26/19 at 06:59; Status DC Prochlorperazine Edisylate (Compazine) 5 mg PACU PRN PRN IV NAUSEA, MRX1; Start 07/25/19 at 07:00; Stop 07/26/19 at 06:59; Status DC Sodium Chloride 1,000 ml @ 1,000 mls/hr Q1H PRN IV hypotension; Start 07/23/19 at 09:10; Stop 07/23/19 at 15:09; Status DC Albumin Human 200 ml @ 200 mls/hr 1X PRN PRN IV Hypotension Last administered on 07/23/19at 10:10; Start 07/23/19 at 09:15; Stop 07/23/19 at 15:14; Status DC Sodium Chloride 1,000 ml @ 400 mls/hr Q2H30M PRN IV PATENCY; Start 07/23/19 at 09:10; Stop 07/23/19 at 21:09; Status DC Info (PHARMACY MONITORING -- do not chart) 1 each PRN DAILY PRN MC SEE COMMENTS; Start 07/23/19 at 09:15; Stop 07/24/19 at 12:45; Status DC Info (PHARMACY MONITORING -- do not chart) 1 each PRN DAILY PRN MC SEE COMMENTS; Start 07/23/19 at 09:15; Stop 07/24/19 at 12:45; Status DC Sodium Chloride 90 meq/Potassium Chloride 15 meq/ Potassium Phosphate 10 mmol/ Magnesium Sulfate 8 meq/Calcium Gluconate 15 meq/ Multivitamins 10 ml/Chromium/ Copper/Manganese/ Seleni/Zn 0.5 ml/ Insulin Human Regular 25 unit/ Total Parenteral Nutrition/Amino Acids/Dextrose/ Fat Emulsion Intravenous 1,400 ml @ 58.333 mls/ hr TPN CONT IV Last administered on 07/23/19at 22:10; Start 07/23/19 at 22:00; Stop 07/24/19 at 21:59; Status DC Magnesium Sulfate 50 ml @ 25 mls/hr PRN DAILY PRN IV for Mag < 1.7 on am labs Last administered on 08/08/19at 17:27; Start 07/24/19 at 09:15 Sodium Chloride 90 meq/Potassium Chloride 15 meq/ Potassium Phosphate 10 mmol/ Magnesium Sulfate 8 meq/Calcium Gluconate 15 meq/ Multivitamins 10 ml/Chromium/ Copper/Manganese/ Seleni/Zn 0.5 ml/ Insulin Human Regular 25 unit/ Total Parenteral Nutrition/Amino Acids/Dextrose/ Fat Emulsion Intravenous 1,400 ml @ 58.333 mls/ hr TPN CONT IV Last administered on 07/24/19at 21:20; Start 07/24/19 at 22:00; Stop 07/25/19 at 21:59; Status DC Sodium Chloride 1,000 ml @ 1,000 mls/hr Q1H PRN IV hypotension; Start 07/24/19 at 12:23; Stop 07/24/19 at 18:22; Status DC Albumin Human 200 ml @ 200 mls/hr 1X ONCE IV Last administered on 07/24/19at 13:34; Start 07/24/19 at 12:30; Stop 07/24/19 at 13:29; Status DC Diphenhydramine HCl (Benadryl) 25 mg 1X PRN PRN IV ITCHING; Start 07/24/19 at 12:30; Stop 07/25/19 at 12:29; Status DC Diphenhydramine HCl (Benadryl) 25 mg 1X PRN PRN IV ITCHING; Start 07/24/19 at 12:30; Stop 07/25/19 at 12:29; Status DC Info (PHARMACY MONITORING -- do not chart) 1 each PRN DAILY PRN MC SEE COMMENTS; Start 07/24/19 at 12:30; Status Cancel Bupivacaine HCl/ Epinephrine Bitart (Sensorcain-Epi 0.5%-1:[id number] Mpf) 30 ml STK-MED ONCE .ROUTE Last administered on 07/25/19at 11:44; Start 07/25/19 at 11:00; Stop 07/25/19 at 11:01; Status DC Cellulose (Surgicel Fibrillar 1x2) 1 each STK-MED ONCE .ROUTE ; Start 07/25/19 at 11:00; Stop 07/25/19 at 11:01; Status DC Sodium Chloride 90 meq/Potassium Chloride 15 meq/ Potassium Phosphate 10 mmol/ Magnesium Sulfate 12 meq/Calcium Gluconate 15 meq/ Multivitamins 10 ml/Chromium/ Copper/Manganese/ Seleni/Zn 0.5 ml/ Insulin Human Regular 25 unit/ Total Parenteral Nutrition/Amino Acids/Dextrose/ Fat Emulsion Intravenous 1,400 ml @ 58.333 mls/ hr TPN CONT IV Last administered on 07/25/19at 22:24; Start 07/25/19 at 22:00; Stop 07/26/19 at 21:59; Status DC Propofol 20 ml @ As Directed STK-MED ONCE IV ; Start 07/25/19 at 11:07; Stop 07/25/19 at 11:07; Status DC Cellulose (Surgicel Hemostat 4x8) 1 each STK-MED ONCE .ROUTE Last administered on 07/25/19at 11:44; Start 07/25/19 at 11:55; Stop 07/25/19 at 11:56; Status DC Sevoflurane (Ultane) 60 ml STK-MED ONCE IH ; Start 07/25/19 at 12:46; Stop 07/25/19 at 12:46; Status DC Sodium Chloride 1,000 ml @ 1,000 mls/hr Q1H PRN IV hypotension; Start 07/25/19 at 13:51; Stop 07/25/19 at 19:50; Status DC Albumin Human 200 ml @ 200 mls/hr 1X PRN PRN IV Hypotension Last administered on 07/25/19at 14:51; Start 07/25/19 at 14:00; Stop 07/25/19 at 19:59; Status DC Diphenhydramine HCl (Benadryl) 25 mg 1X PRN PRN IV ITCHING; Start 07/25/19 at 14:00; Stop 07/26/19 at 13:59; Status DC Diphenhydramine HCl (Benadryl) 25 mg 1X PRN PRN IV ITCHING; Start 07/25/19 at 14:00; Stop 07/26/19 at 13:59; Status DC Sodium Chloride 1,000 ml @ 400 mls/hr Q2H30M PRN IV PATENCY; Start 07/25/19 at 13:51; Stop 07/26/19 at 01:50; Status DC Info (PHARMACY MONITORING -- do not chart) 1 each PRN DAILY PRN MC SEE COMMENTS; Start 07/25/19 at 14:00; Stop 07/28/19 at 08:16; Status DC Heparin Sodium (Porcine) (Hep Lock Adult) 500 unit STK-MED ONCE IVP ; Start 07/26/19 at 09:29; Stop 07/26/19 at 09:30; Status DC Sodium Chloride 1,000 ml @ 1,000 mls/hr Q1H PRN IV hypotension; Start 07/26/19 at 10:43; Stop 07/26/19 at 16:42; Status DC Sodium Chloride 1,000 ml @ 400 mls/hr Q2H30M PRN IV PATENCY; Start 07/26/19 at 10:43; Stop 07/26/19 at 22:42; Status DC Info (PHARMACY MONITORING -- do not chart) 1 each PRN DAILY PRN MC SEE COMMENTS; Start 07/26/19 at 10:45; Status UNV Info (PHARMACY MONITORING -- do not chart) 1 each PRN DAILY PRN MC SEE COMMENTS; Start 07/26/19 at 10:45; Status UNV Sodium Chloride 90 meq/Potassium Chloride 15 meq/ Magnesium Sulfate 12 meq/Calcium Gluconate 15 meq/ Multivitamins 10 ml/Chromium/ Copper/Manganese/ Seleni/Zn 0.5 ml/ Insulin Human Regular 25 unit/ Total Parenteral Nutrition/Amino Acids/Dextrose/ Fat Emulsion Intravenous 1,400 ml @ 58.333 mls/ hr TPN CONT IV Last administered on 07/26/19at 22:13; Start 07/26/19 at 22:00; Stop 07/27/19 at 21:59; Status DC Sodium Chloride 1,000 ml @ 1,000 mls/hr Q1H PRN IV hypotension; Start 07/27/19 at 07:50; Stop 07/27/19 at 13:49; Status DC Albumin Human 200 ml @ 200 mls/hr 1X ONCE IV ; Start 07/27/19 at 08:00; Stop 07/27/19 at 08:53; Status DC Diphenhydramine HCl (Benadryl) 25 mg 1X PRN PRN IV ITCHING; Start 07/27/19 at 08:00; Stop 07/28/19 at 07:59; Status DC Diphenhydramine HCl (Benadryl) 25 mg 1X PRN PRN IV ITCHING; Start 07/27/19 at 08:00; Stop 07/28/19 at 07:59; Status DC Info (PHARMACY MONITORING -- do not chart) 1 each PRN DAILY PRN MC SEE COMMENTS; Start 07/27/19 at 08:00; Stop 07/28/19 at 08:16; Status DC Albumin Human 50 ml @ 50 mls/hr 1X ONCE IV ; Start 07/27/19 at 08:53; Stop 07/26 at 08:56; Status DC Albumin Human 200 ml @ 50 mls/hr PRN 1X PRN IV HYPOTENSION Last administered on 08/02/19at 11:54; Start 07/27/19 at 09:00; Stop 09/08/19 at 11:14; Status DC Meropenem 500 mg/ Sodium Chloride 50 ml @ 100 mls/hr Q12H IV Last administered on 08/16/19at 10:45; Start 07/27/19 at 10:00; Stop 08/16/19 at 12:37; Status DC Sodium Chloride 90 meq/Magnesium Sulfate 12 meq/ Calcium Gluconate 15 meq/ Multivitamins 10 ml/Chromium/ Copper/Manganese/ Seleni/Zn 0.5 ml/ Insulin Human Regular 25 unit/ Total Parenteral Nutrition/Amino Acids/Dextrose/ Fat Emulsion Intravenous 1,400 ml @ 58.333 mls/ hr TPN CONT IV Last administered on 07/27/19at 21:41; Start 07/27/19 at 22:00; Stop 07/28/19 at 21:59; Status DC Sodium Chloride 1,000 ml @ 1,000 mls/hr Q1H PRN IV hypotension; Start 07/28/19 at 07:58; Stop 07/28/19 at 13:57; Status DC Albumin Human 200 ml @ 200 mls/hr 1X PRN PRN IV Hypotension Last administered on 07/28/19at 09:30; Start 07/28/19 at 08:00; Stop 07/28/19 at 13:59; Status DC Sodium Chloride 1,000 ml @ 400 mls/hr Q2H30M PRN IV PATENCY; Start 07/28/19 at 07:58; Stop 07/28/19 at 19:57; Status DC Info (PHARMACY MONITORING -- do not chart) 1 each PRN DAILY PRN MC SEE COMMENTS; Start 07/28/19 at 08:00; Status Cancel Info (PHARMACY MONITORING -- do not chart) 1 each PRN DAILY PRN MC SEE COMMENTS; Start 07/28/19 at 08:15; Status UNV Sodium Chloride 90 meq/Potassium Phosphate 5 mmol/ Magnesium Sulfate 12 meq/Calcium Gluconate 15 meq/ Multivitamins 10 ml/Chromium/ Copper/Manganese/ Seleni/Zn 0.5 ml/ Insulin Human Regular 30 unit/ Total Parenteral Nutrition/Amino Acids/Dextrose/ Fat Emulsion Intravenous 1,400 ml @ 58.333 mls/ hr TPN CONT IV Last administered on 07/28/19at 22:08; Start 07/28/19 at 22:00; Stop 07/29/19 at 21:59; Status DC Linezolid/Dextrose 300 ml @ 300 mls/hr Q12HR IV Last administered on 08/08/19at 20:40; Start 07/29/19 at 11:00; Stop 08/09/19 at 08:10; Status DC Sodium Chloride 90 meq/Potassium Phosphate 15 mmol/ Magnesium Sulfate 12 meq/Calcium Gluconate 15 meq/ Multivitamins 10 ml/Chromium/ Copper/Manganese/ Seleni/Zn 0.5 ml/ Insulin Human Regular 30 unit/ Total Parenteral Nutrition/Amino Acids/Dextrose/ Fat Emulsion Intravenous 1,400 ml @ 58.333 mls/ hr TPN CONT IV Last administered on 07/29/19at 21:49; Start 07/29/19 at 22:00; Stop 07/30/19 at 21:59; Status DC Sodium Chloride 90 meq/Potassium Phosphate 15 mmol/ Magnesium Sulfate 12 meq/Calcium Gluconate 15 meq/ Multivitamins 10 ml/Chromium/ Copper/Manganese/ Seleni/Zn 0.5 ml/ Insulin Human Regular 40 unit/ Total Parenteral Nutritio n/Amino Acids/Dextrose/ Fat Emulsion Intravenous 1,400 ml @ 58.333 mls/ hr TPN CONT IV Last administered on 07/30/19at 21:21; Start 07/30/19 at 22:00; Stop 07/31/19 at 21:59; Status DC Sodium Chloride 1,000 ml @ 1,000 mls/hr Q1H PRN IV hypotension; Start 07/30/19 at 13:26; Stop 07/30/19 at 19:25; Status DC Albumin Human 200 ml @ 200 mls/hr 1X PRN PRN IV Hypotension Last administered on 07/30/19at 15:00; Start 07/30/19 at 13:30; Stop 07/30/19 at 19:29; Status DC Sodium Chloride (Normal Saline Flush) 10 ml 1X PRN PRN IV AP catheter pack; Start 07/30/19 at 13:30; Stop 07/31/19 at 13:29; Status DC Sodium Chloride (Normal Saline Flush) 10 ml 1X PRN PRN IV [employer] catheter pack; Start 07/30/19 at 13:30; Stop 07/31/19 at 13:29; Status DC Sodium Chloride 1,000 ml @ 400 mls/hr Q2H30M PRN IV PATENCY; Start 07/30/19 at 13:26; Stop 07/31/19 at 01:25; Status DC Info (PHARMACY MONITORING -- do not chart) 1 each PRN DAILY PRN MC SEE COMMENTS; Start 07/30/19 at 13:30; Stop 07/30/19 at 13:33; Status DC Info (PHARMACY MONITORING -- do not chart) 1 each PRN DAILY PRN MC SEE COMMENTS; Start 07/30/19 at 13:30; Stop 07/30/19 at 13:34; Status DC Sodium Chloride 90 meq/Potassium Phosphate 19 mmol/ Magnesium Sulfate 12 meq/Calcium Gluconate 15 meq/ Multivitamins 10 ml/Chromium/ Copper/Manganese/ Seleni/Zn 0.5 ml/ Insulin Human Regular 40 unit/ Total Parenteral Nutrition/Amino Acids/Dextrose/ Fat Emulsion Intravenous 1,400 ml @ 58.333 mls/ hr TPN CONT IV Last administered on 07/31/19at 21:54; Start 07/31/19 at 22:00; Stop 08/01/19 at 21:59; Status DC Sodium Chloride 1,000 ml @ 1,000 mls/hr Q1H PRN IV hypotension; Start 08/01/19 at 09:35; Stop 08/01/19 at 15:34; Status DC Albumin Human 200 ml @ 200 mls/hr 1X PRN PRN IV Hypotension; Start 08/01/19 at 09:45; Stop 08/01/19 at 15:44; Status DC Diphenhydramine HCl (Benadryl) 25 mg 1X PRN PRN IV ITCHING; Start 08/01/19 at 09:45; Stop 08/02/19 at 09:44; Status DC Diphenhydramine HCl (Benadryl) 25 mg 1X PRN PRN IV ITCHING; Start 08/01/19 at 09:45; Stop 08/02/19 at 09:44; Status DC Sodium Chloride 1,000 ml @ 400 mls/hr Q2H30M PRN IV PATENCY; Start 08/01/19 at 09:35; Stop 08/01/19 at 21:34; Status DC Info (PHARMACY MONITORING -- do not chart) 1 each PRN DAILY PRN MC SEE COMMENTS; Start 08/01/19 at 09:45; Status Cancel Sodium Chloride 100 meq/Potassium Phosphate 19 mmol/ Magnesium Sulfate 12 meq/Calcium Gluconate 15 meq/ Multivitamins 10 ml/Chromium/ Copper/Manganese/ Seleni/Zn 0.5 ml/ Insulin Human Regular 40 unit/ Potassium Chloride 20 meq/ Total Parenteral Nutrition/Amino Acids/Dextrose/ Fat Emulsion Intravenous 1,400 ml @ 58.333 mls/ hr TPN CONT IV Last administered on 08/01/19at 22:02; Start 08/01/19 at 22:00; Stop 08/02/19 at 21:59; Status DC Furosemide (Lasix) 40 mg 1X ONCE IVP Last administered on 08/01/19at 14:39; Start 08/01/19 at 14:30; Stop 08/01/19 at 14:31; Status DC Metronidazole 100 ml @ 100 mls/hr Q8HRS IV Last administered on 08/09/19at 06:04; Start 08/02/19 at 10:00; Stop 08/09/19 at 08:10; Status DC Sodium Chloride 1,000 ml @ 1,000 mls/hr Q1H PRN IV hypotension; Start 08/02/19 at 08:00; Stop 08/02/19 at 13:59; Status DC Albumin Human 200 ml @ 200 mls/hr 1X PRN PRN IV Hypotension; Start 08/02/19 at 08:00; Stop 08/02/19 at 13:59; Status DC Sodium Chloride 1,000 ml @ 400 mls/hr Q2H30M PRN IV PATENCY; Start 08/02/19 at 08:00; Stop 08/02/19 at 19:59; Status DC Info (PHARMACY MONITORING -- do not chart) 1 each PRN DAILY PRN MC SEE COMMENTS; Start 08/02/19 at 11:30; Status UNV Info (PHARMACY MONITORING -- do not chart) 1 each PRN DAILY PRN MC SEE CO MMENTS; Start 08/02/19 at 11:30; Stop 08/04/19 at 12:13; Status DC Sodium Chloride 100 meq/Potassium Phosphate 19 mmol/ Magnesium Sulfate 12 meq/Calcium Gluconate 15 meq/ Multivitamins 10 ml/Chromium/ Copper/Manganese/ Seleni/Zn 0.5 ml/ Insulin Human Regular 40 unit/ Potassium Chloride 20 meq/ Total Parenteral Nutrition/Amino Acids/Dextrose/ Fat Emulsion Intravenous 1,400 ml @ 58.333 mls/ hr TPN CONT IV Last administered on 08/02/19at 21:52; Start 08/02/19 at 22:00; Stop 08/03/19 at 21:59; Status DC Sodium Chloride (Normal Saline Flush) 10 ml QSHIFT PRN IV AFTER MEDS AND BLOOD DRAWS; Start 08/02/19 at 15:00; Stop 08/30/19 at 11:27; Status DC Sodium Chloride (Normal Saline Flush) 10 ml PRN Q5MIN PRN IV AFTER MEDS AND BLOOD DRAWS; Start 08/02/19 at 15:00 Sodium Chloride (Normal Saline Flush) 20 ml PRN Q5MIN PRN IV AFTER MEDS AND BLOOD DRAWS; Start 08/02/19 at 15:00 Sodium Chloride 100 meq/Potassium Phosphate 19 mmol/ Magnesium Sulfate 12 meq/Calcium Gluconate 15 meq/ Multivitamins 10 ml/Chromium/ Copper/Manganese/ Seleni/Zn 0.5 ml/ Insulin Human Regular 40 unit/ Potassium Chloride 20 meq/ Total Parenteral Nutrition/Amino Acids/Dextrose/ Fat Emulsion Intravenous 1,400 ml @ 58.333 mls/ hr TPN CONT IV Last administered on 08/03/19at 21:20; Start 08/03/19 at 22:00; Stop 08/04/19 at 21:59; Status DC Lidocaine HCl (Buffered Lidocaine 1%) 3 ml STK-MED ONCE .ROUTE ; Start 08/03/19 at 13:16; Stop 08/03/19 at 13:16; Status DC Lidocaine HCl (Buffered Lidocaine 1%) 6 ml 1X ONCE INJ Last administered on 08/03/19at 13:45; Start 08/03/19 at 13:30; Stop 08/03/19 at 13:31; Status DC Albumin Human 100 ml @ 100 mls/hr 1X ONCE IV Last administered on 08/03/19at 15:41; Start 08/03/19 at 15:00; Stop 08/03/19 at 15:59; Status DC Albumin Human 50 ml @ 50 mls/hr 1X ONCE IV Last administered on 08/03/19at 15:00; Start 08/03/19 at 15:00; Stop 08/03/19 at 15:59; Status DC Info (PHARMACY MONITORING -- do not chart) 1 each PRN DAILY PRN MC SEE COMMENTS; Start 08/04/19 at 11:30; Status Cancel Info (PHARMACY MONITORING -- do not chart) 1 each PRN DAILY PRN MC SEE COMMENTS; Start 08/04/19 at 11:30; Status UNV Sodium Chloride 100 meq/Potassium Phosphate 10 mmol/ Magnesium Sulfate 12 meq/Calcium Gluconate 15 meq/ Multivitamins 10 ml/Chromium/ Copper/Manganese/ Seleni/Zn 0.5 ml/ Insulin Human Regular 35 unit/ Potassium Chloride 20 meq/ Total Parenteral Nutrition/Amino Acids/Dextrose/ Fat Emulsion Intravenous 1,400 ml @ 58.333 mls/ hr TPN CONT IV Last administered on 08/04/19at 22:10; Start 08/04/19 at 22:00; Stop 08/05/19 at 21:59; Status DC Sodium Chloride 100 meq/Potassium Phosphate 5 mmol/ Magnesium Sulfate 12 meq/Calcium Gluconate 15 meq/ Multivitamins 10 ml/Chromium/ Copper/Manganese/ Seleni/Zn 0.5 ml/ Insulin Human Regular 35 unit/ Potassium Chloride 20 meq/ Total Parenteral Nutrition/Amino Acids/Dextrose/ Fat Emulsion Intravenous 1,400 ml @ 58.333 mls/ hr TPN CONT IV Last administered on 08/05/19at 22:59; Start 08/05/19 at 22:00; Stop 08/06/19 at 21:59; Status DC Sodium Chloride 1,000 ml @ 1,000 mls/hr Q1H PRN IV hypotension; Start 08/06/19 at 08:27; Stop 08/06/19 at 14:26; Status DC Albumin Human 200 ml @ 200 mls/hr 1X PRN PRN IV Hypotension Last administered on 08/06/19at 09:18; Start 08/06/19 at 08:30; Stop 08/06/19 at 14:29; Status DC Sodium Chloride 1,000 ml @ 400 mls/hr Q2H30M PRN IV PATENCY; Start 08/06/19 at 08:27; Stop 08/06/19 at 20:26; Status DC Info (PHARMACY MONITORING -- do not chart) 1 each PRN DAILY PRN MC SEE COMMENTS; Start 08/06/19 at 08:30; Status Cancel Info (PHARMACY MONITORING -- do not chart) 1 each PRN DAILY PRN MC SEE COMMENTS; Start 08/06/19 at 08:30; Stop 08/14/19 at 13:10; Status DC Sodium Chloride 100 meq/Potassium Chloride 40 meq/ Magnesium Sulfate 15 meq/Calcium Gluconate 15 meq/ Multivitamins 10 ml/Chromium/ Copper/Manganese/ Seleni/Zn 0.5 ml/ Insulin Human Regular 35 unit/ Total Parenteral Nutrition/Amino Acids/Dextrose/ Fat Emulsion Intravenous 1,400 ml @ 58.333 mls/ hr TPN CONT IV Last administered on 08/06/19at 22:00; Start 08/06/19 at 22:00; Stop 08/07/19 at 21:59; Status DC Potassium Chloride/Water 100 ml @ 100 mls/hr 1X ONCE IV Last administered on 08/06/19at 17:28; Start 08/06/19 at 14:45; Stop 08/06/19 at 15:44; Status DC Sodium Chloride 100 meq/Potassium Chloride 40 meq/ Magnesium Sulfate 15 meq/Calcium Gluconate 15 meq/ Multivitamins 10 ml/Chromium/ Copper/Manganese/ Seleni/Zn 0.5 ml/ Insulin Human Regular 35 unit/ Total Parenteral Nutritio n/Amino Acids/Dextrose/ Fat Emulsion Intravenous 1,400 ml @ 58.333 mls/ hr TPN CONT IV Last administered on 08/07/19at 22:46; Start 08/07/19 at 22:00; Stop 08/08/19 at 21:59; Status DC Sodium Chloride 100 meq/Potassium Chloride 40 meq/ Magnesium Sulfate 20 meq/Calcium Gluconate 15 meq/ Multivitamins 10 ml/Chromium/ Copper/Manganese/ Seleni/Zn 0.5 ml/ Insulin Human Regular 35 unit/ Total Parenteral Nutrition/Amino Acids/Dextrose/ Fat Emulsion Intravenous 1,400 ml @ 58.333 mls/ hr TPN CONT IV Last administered on 08/08/19at 22:31; Start 08/08/19 at 22:00; Stop 08/09/19 at 21:59; Status DC Fentanyl Citrate (Fentanyl 2ml Vial) 50 mcg PRN Q2HR PRN IVP PAIN Last administered on 08/15/19at 13:32; Start 08/08/19 at 21:00; Stop 08/16/19 at 12:53; Status DC Fentanyl Citrate (Fentanyl 2ml Vial) 25 mcg PRN Q2HR PRN IVP PAIN; Start 08/08/19 at 21:00; Stop 08/16/19 at 12:54; Status DC Enoxaparin Sodium (Lovenox 100mg Syringe) 100 mg Q12HR SQ ; Start 08/09/19 at 21:00; Status UNV Amino Acids/ Glycerin/ Electrolytes 1,000 ml @ 75 mls/hr [id number] IV ; Start 08/08/19 at 21:15; Status UNV Sodium Chloride 1,000 ml @ 1,000 mls/hr Q1H PRN IV hypotension; Start 08/09/19 at 07:56; Stop 08/09/19 at 13:55; Status DC Albumin Human 200 ml @ 200 mls/hr 1X PRN PRN IV Hypotension Last administered on 08/09/19at 08:40; Start 08/09/19 at 08:00; Stop 08/09/19 at 13:59; Status DC Sodium Chloride 1,000 ml @ 400 mls/hr Q2H30M PRN IV PATENCY; Start 08/09/19 at 07:56; Stop 08/09/19 at 19:55; Status DC Info (PHARMACY MONITORING -- do not chart) 1 each PRN DAILY PRN MC SEE COMMENTS; Start 08/09/19 at 08:00; Status UNV Info (PHARMACY MONITORING -- do not chart) 1 each PRN DAILY PRN MC SEE COMMENTS; Start 08/09/19 at 08:00; Status UNV Daptomycin 430 mg/ Sodium Chloride 50 ml @ 100 mls/hr Q24H IV Last administered on 08/09/19at 12:35; Start 08/09/19 at 09:00; Stop 08/09/19 at 12:49; Status DC Sodium Chloride 100 meq/Potassium Chloride 40 meq/ Magnesium Sulfate 20 meq/Calcium Gluconate 15 meq/ Multivitamins 10 ml/Chromium/ Copper/Manganese/ Seleni/Zn 0.5 ml/ Insulin Human Regular 35 unit/ Total Parenteral Nutrition/Amino Acids/Dextrose/ Fat Emulsion Intravenous 1,400 ml @ 58.333 mls/ hr TPN CONT IV Last administered on 08/09/19at 21:26; Start 08/09/19 at 22:00; Stop 08/10/19 at 21:59; Status DC Daptomycin 430 mg/ Sodium Chloride 50 ml @ 100 mls/hr Q48H IV ; Start 08/11/19 at 09:00; Stop 08/10/19 at 11:55; Status DC Sodium Chloride 100 meq/Potassium Chloride 40 meq/ Magnesium Sulfate 20 meq/Calcium Gluconate 15 meq/ Multivitamins 10 ml/Chromium/ Copper/Manganese/ Seleni/Zn 0.5 ml/ Insulin Human Regular 35 unit/ Total Parenteral Nutrition/Amino Acids/Dextrose/ Fat Emulsion Intravenous 1,400 ml @ 58.333 mls/ hr TPN CONT IV Last administered on 08/10/19at 22:27; Start 08/10/19 at 22:00; Stop 08/11/19 at 21:59; Status DC Daptomycin 430 mg/ Sodium Chloride 50 ml @ 100 mls/hr Q24H IV Last administered on 08/12/19at 15:07; Start 08/10/19 at 13:00; Stop 08/13/19 at 13:15; Status DC Sodium Chloride 100 meq/Potassium Chloride 40 meq/ Magnesium Sulfate 20 meq/Calcium Gluconate 10 meq/ Multivitamins 10 ml/Chromium/ Copper/Manganese/ Seleni/Zn 0.5 ml/ Insulin Human Regular 35 unit/ Total Parenteral Nutrition/Amino Acids/Dextrose/ Fat Emulsion Intravenous 1,400 ml @ 58.333 mls/ hr TPN CONT IV Last administered on 08/12/19at 00:06; Start 08/11/19 at 22:00; Stop 08/12/19 at 21:59; Status DC Alteplase, Recombinant (Cathflo For Central Catheter Clearance) 1 mg 1X ONCE INT CAT Last administered on 08/12/19at 11:44; Start 08/12/19 at 10:45; Stop 08/12/19 at 10:46; Status DC Ondansetron HCl (Zofran) 4 mg PRN Q6HRS PRN IV NAUSEA/VOMITING; Start 08/15/19 at 07:00; Stop 08/16/19 at 06:59; Status DC Fentanyl Citrate (Fentanyl 2ml Vial) 25 mcg PRN Q5MIN PRN IV MILD PAIN 1-3; Start 08/15/19 at 07:00; Stop 08/16/19 at 06:59; Status DC Fentanyl Citrate (Fentanyl 2ml Vial) 50 mcg PRN Q5MIN PRN IV MODERATE TO SEVERE PAIN Last administered on 08/15/19at 10:17; Start 08/15/19 at 07:00; Stop 08/16/19 at 06:59; Status DC Ringer's Solution 1,000 ml @ 30 mls/hr Q24H IV ; Start 08/15/19 at 07:00; Stop 08/15/19 at 18:59; Status DC Lidocaine HCl (Xylocaine-Mpf 1% 2ml Vial) 2 ml PRN 1X PRN ID PRIOR TO IV START; Start 08/15/19 at 07:00; Stop 08/16/19 at 06:59; Status DC Prochlorperazine Edisylate (Compazine) 5 mg PACU PRN PRN IV NAUSEA, MRX1; Start 08/15/19 at 07:00; Stop 08/16/19 at 06:59; Status DC Sodium Acetate 50 meq/Potassium Acetate 55 meq/ Magnesium Sulfate 20 meq/Calcium Gluconate 10 meq/ Multivitamins 10 ml/Chromium/ Copper/Manganese/ Seleni/Zn 0.5 ml/ Insulin Human Regular 35 unit/ Total Parenteral Nutrition/Amino Acids/Dextrose/ Fat Emulsion Intravenous 1,400 ml @ 58.333 mls/ hr TPN CONT IV ; Start 08/12/19 at 22:00; Stop 08/12/19 at 14:15; Status DC Sodium Acetate 50 meq/Potassium Acetate 55 meq/ Magnesium Sulfate 20 meq/Calcium Gluconate 10 meq/ Multivitamins 10 ml/Chromium/ Copper/Manganese/ Seleni/Zn 0.5 ml/ Insulin Human Regular 35 unit/ Total Parenteral Nutrition/Amino Acids/Dextrose/ Fat Emulsion Intravenous 1,800 ml @ 75 mls/hr TPN CONT IV Last administered on 08/12/19at 22:38; Start 08/12/19 at 22:00; Stop 08/13/19 at 21:59; Status DC Sodium Chloride 1,000 ml @ 1,000 mls/hr Q1H PRN IV hypotension; Start 08/12/19 at 15:31; Stop 08/12/19 at 21:30; Status DC Diphenhydramine HCl (Benadryl) 25 mg 1X PRN PRN IV ITCHING; Start 08/12/19 at 15:45; Stop 08/13/19 at 15:44; Status DC Diphenhydramine HCl (Benadryl) 25 mg 1X PRN PRN IV ITCHING; Start 08/12/19 at 15:45; Stop 08/13/19 at 15:44; Status DC Sodium Chloride 1,000 ml @ 400 mls/hr Q2H30M PRN IV PATENCY; Start 08/12/19 at 15:31; Stop 08/13/19 at 03:30; Status DC Info (PHARMACY MONITORING -- do not chart) 1 each PRN DAILY PRN MC SEE COMMENTS; Start 08/12/19 at 15:45; Stop 09/13/19 at 14:14; Status DC Sodium Acetate 50 meq/Potassium Acetate 55 meq/ Magnesium Sulfate 20 meq/Calcium Gluconate 10 meq/ Multivitamins 10 ml/Chromium/ Copper/Manganese/ Seleni/Zn 0.5 ml/ Insulin Human Regular 35 unit/ Total Parenteral Nutrition/Amino Acids/Dextrose/ Fat Emulsion Intravenous 1,800 ml @ 75 mls/hr TPN CONT IV Last administered on 08/13/19at 22:03; Start 08/13/19 at 22:00; Stop 08/14/19 at 21:59; Status DC Daptomycin 430 mg/ Sodium Chloride 50 ml @ 100 mls/hr Q24H IV Last administered on 08/18/19at 13:00; Start 08/13/19 at 13:00; Stop 08/18/19 at 20:58; Status DC Heparin Sodium (Porcine) 1000 unit/Sodium Chloride 1,001 ml @ 1,001 mls/hr 1X ONCE IRR ; Start 08/15/19 at 06:00; Stop 08/15/19 at 06:59; Status DC Potassium Acetate 55 meq/Magnesium Sulfate 20 meq/ Calcium Gluconate 10 meq/ Multivitamins 10 ml/Chromium/ Copper/Manganese/ Seleni/Zn 0.5 ml/ Insulin Human Regular 35 unit/ Total Parenteral Nutrition/Amino Acids/Dextrose/ Fat Emulsion Intravenous 1,920 ml @ 80 mls/hr TPN CONT IV Last administered on 08/14/19at 22:10; Start 08/14/19 at 22:00; Stop 08/15/19 at 21:59; Status DC Dexamethasone Sodium Phosphate (Decadron) 4 mg STK-MED ONCE .ROUTE ; Start 08/15/19 at 10:56; Stop 08/15/19 at 10:57; Status DC Ondansetron HCl (Zofran) 4 mg STK-MED ONCE .ROUTE ; Start 08/15/19 at 10:56; Stop 08/15/19 at 10:57; Status DC Rocuronium [place] (Zemuron) 50 mg STK-MED ONCE .ROUTE ; Start 08/15/19 at 10:56; Stop 08/15/19 at 10:57; Status DC Fentanyl Citrate (Fentanyl 2ml Vial) 100 mcg STK-MED ONCE .ROUTE ; Start 08/15/19 at 10:56; Stop 08/15/19 at 10:57; Status DC Bupivacaine HCl/ Epinephrine Bitart (Sensorcain-Epi 0.5%-1:280513 Mpf) 30 ml STK-MED ONCE .ROUTE Last administered on 08/15/19at 12:01; Start 08/15/19 at 10:58; Stop 08/15/19 at 10:58; Status DC Cellulose (Surgicel Hemostat 2x14) 1 each STK-MED ONCE .ROUTE ; Start 08/15/19 at 10:58; Stop 08/15/19 at 10:59; Status DC Iohexol (Omnipaque 300 Mg/ml) 50 ml STK-MED ONCE .ROUTE ; Start 08/15/19 at 10:58; Stop 08/15/19 at 10:59; Status DC Cellulose (Surgicel Hemostat 4x8) 1 each STK-MED ONCE .ROUTE ; Start 08/15/19 at 10:58; Stop 08/15/19 at 10:59; Status DC Bisacodyl (Dulcolax Supp) 10 mg STK-MED ONCE .ROUTE ; Start 08/15/19 at 10:59; Stop 08/15/19 at 10:59; Status DC Heparin Sodium (Porcine) 1000 unit/Sodium Chloride 1,001 ml @ 1,001 mls/hr 1X ONCE IRR ; Start 08/15/19 at 12:00; Stop 08/15/19 at 12:59; Status DC Propofol 20 ml @ As Directed STK-MED ONCE IV ; Start 08/15/19 at 11:05; Stop 08/15/19 at 11:05; Status DC Sevoflurane (Ultane) 90 ml STK-MED ONCE IH ; Start 08/15/19 at 11:05; Stop 07/20 11/06 at 11:05; Status DC Sevoflurane (Ultane) 60 ml STK-MED ONCE IH ; Start 08/15/19 at 12:26; Stop 08/15/19 at 12:27; Status DC Propofol 20 ml @ As Directed STK-MED ONCE IV ; Start 08/15/19 at 12:26; Stop 08/15/19 at 12:27; Status DC Phenylephrine HCl (PHENYLEPHRINE in 0.9% NACL PF) 1 mg STK-MED ONCE IV ; Start 08/15/19 at 12:34; Stop 08/15/19 at 12:34; Status DC Heparin Sodium (Porcine) (Heparin Sodium) 5,000 unit Q12HR SQ Last administered on 08/24/19at 20:57; Start 08/15/19 at 21:00; Stop 08/25/19 at 09:59; Status DC Sodium Chloride (Normal Saline Flush) 3 ml QSHIFT PRN IV AFTER MEDS AND BLOOD DRAWS; Start 08/15/19 at 13:45 Naloxone HCl (Narcan) 0.4 mg PRN Q2MIN PRN IV SEE INSTRUCTIONS Last administered on 09/24/19at 15:15; Start 08/15/19 at 13:45 Sodium Chloride 1,000 ml @ 25 mls/hr Q24H IV Last administered on 09/13/19at 13:37; Start 08/15/19 at 13:37; Stop 09/16/19 at 13:09; Status DC Naloxone HCl (Narcan) 0.4 mg PRN Q2MIN PRN IV SEE INSTRUCTIONS; Start 08/15/19 at 14:30; Status UNV Sodium Chloride 1,000 ml @ 25 mls/hr Q24H IV ; Start 08/15/19 at 14:30; Status UNV Hydromorphone HCl 30 ml @ 0 mls/hr CONT PRN PRN IV PER PROTOCOL Last administered on 08/20/19at 16:08; Start 08/15/19 at 14:30; Stop 08/22/19 at 08:55; Status DC Potassium Acetate 55 meq/Magnesium Sulfate 20 meq/ Calcium Gluconate 10 meq/ Multivitamins 10 ml/Chromium/ Copper/Manganese/ Seleni/Zn 0.5 ml/ Insulin Human Regular 35 unit/ Total Parenteral Nutrition/Amino Acids/Dextrose/ Fat Emulsion Intravenous 1,920 ml @ 80 mls/hr TPN CONT IV Last administered on 08/15/19at 22:01; Start 08/15/19 at 22:00; Stop 08/16/19 at 21:59; Status DC Bumetanide (Bumex) 2 mg [id number] IV Last administered on 08/19/19at 13:50; Start 08/16/19 at 14:00; Stop 08/20/19 at 14:10; Status DC Meropenem 1 gm/ Sodium Chloride 100 ml @ 200 mls/hr Q8HRS IV Last administered on 09/09/19at 05:53; Start 08/16/19 at 14:00; Stop 09/09/19 at 09:31; Status DC Potassium Acetate 55 meq/Magnesium Sulfate 20 meq/ Calcium Gluconate 10 meq/ Multivitamins 10 ml/Chromium/ Copper/Manganese/ Seleni/Zn 0.5 ml/ Insulin Human Regular 35 unit/ Total Parenteral Nutrition/Amino Acids/Dextrose/ Fat Emulsion Intravenous 1,920 ml @ 80 mls/hr TPN CONT IV Last administered on 08/16/19at 22:02; Start 08/16/19 at 22:00; Stop 08/17/19 at 21:59; Status DC Hydromorphone HCl (Dilaudid Standard OIL AND GAS LEASE PUMPER) 12 mg STK-MED ONCE IV ; Start 08/15/19 at 14:35; Stop 08/16/19 at 13:53; Status DC Artificial Tears (Artificial Tears) 1 drop PRN Q15MIN PRN OU DRY EYE Last administered on 10/03/19at 03:38; Start 08/17/19 at 05:30 Hydromorphone HCl (Dilaudid Standard OIL AND GAS LEASE PUMPER) 12 mg STK-MED ONCE IV ; Start 08/16/19 at 12:05; Stop 08/17/19 at 09:15; Status DC Potassium Acetate 65 meq/Magnesium Sulfate 20 meq/ Calcium Gluconate 10 meq/ Multivitamins 10 ml/Chromium/ Copper/Manganese/ Seleni/Zn 0.5 ml/ Insulin Human Regular 30 unit/ Total Parenteral Nutrition/Amino Acids/Dextrose/ Fat Emulsion Intravenous 1,920 ml @ 80 mls/hr TPN CONT IV Last administered on 08/17/19at 22:22; Start 08/17/19 at 22:00; Stop 08/18/19 at 21:59; Status DC Cyclobenzaprine HCl (Flexeril) 10 mg PRN Q6HRS PRN PO MUSCLE SPASMS; Start 08/18/19 at 10:45 Potassium Acetate 55 meq/Magnesium Sulfate 20 meq/ Calcium Gluconate 10 meq/ Multivitamins 10 ml/Chromium/ Copper/Manganese/ Seleni/Zn 0.5 ml/ Insulin Human Regular 30 unit/ Total Parenteral Nutrition/Amino Acids/Dextrose/ Fat Emulsion Intravenous 1,920 ml @ 80 mls/hr TPN CONT IV Last administered on 08/19/19at 01:00; Start 08/18/19 at 22:00; Stop 08/19/19 at 21:59; Status DC Magnesium Sulfate 50 ml @ 25 mls/hr 1X ONCE IV Last administered on 08/18/19at 17:18; Start 08/18/19 at 12:45; Stop 08/18/19 at 14:44; Status DC Potassium Chloride/Water 100 ml @ 100 mls/hr 1X ONCE IV Last administered on 08/19/19at 11:27; Start 08/19/19 at 12:00; Stop 08/19/19 at 12:59; Status DC Hydromorphone HCl (Dilaudid Standard OIL AND GAS LEASE PUMPER) 12 mg STK-MED ONCE IV ; Start 08/17/19 at 10:50; Stop 08/19/19 at 11:02; Status DC Hydromorphone HCl (Dilaudid Standard OIL AND GAS LEASE PUMPER) 12 mg STK-MED ONCE IV ; Start 08/18/19 at 13:47; Stop 08/19/19 at 11:03; Status DC Potassium Acetate 30 meq/Magnesium Sulfate 20 meq/ Calcium Gluconate 10 meq/ Multivitamins 10 ml/Chromium/ Copper/Manganese/ Seleni/Zn 0.5 ml/ Insulin Human Regular 30 unit/ Potassium Chloride 30 meq/ Total Parenteral Nutrition/Amino Acids/Dextrose/ Fat Emulsion Intravenous 1,920 ml @ 80 mls/hr TPN CONT IV Last administered on 08/19/19at 22:34; Start 08/19/19 at 22:00; Stop 08/20/19 at 21:59; Status DC Potassium Chloride/Water 100 ml @ 100 mls/hr Q1H IV Last administered on 08/20/19at 13:05; Start 08/20/19 at 07:00; Stop 08/20/19 at 10:59; Status DC Magnesium Sulfate 50 ml @ 25 mls/hr 1X ONCE IV Last administered on 08/20/19at 10:34; Start 08/20/19 at 10:30; Stop 08/20/19 at 12:29; Status DC Potassium Chloride 75 meq/ Magnesium Sulfate 20 meq/Calcium Gluconate 10 meq/ Multivitamins 10 ml/Chromium/ Copper/Manganese/ Seleni/Zn 0.5 ml/ Insulin Human Regular 30 unit/ Total Parenteral Nutrition/Amino Acids/Dextrose/ Fat Emulsion Intravenous 1,920 ml @ 80 mls/hr TPN CONT IV Last administered on 08/20/19at 21 :51; Start 08/20/19 at 22:00; Stop 08/21/19 at 22:00; Status DC Potassium Chloride 75 meq/ Magnesium Sulfate 20 meq/Calcium Gluconate 10 meq/ Multivitamins 10 ml/Chromium/ Copper/Manganese/ Seleni/Zn 0.5 ml/ Insulin Human Regular 25 unit/ Total Parenteral Nutrition/Amino Acids/Dextrose/ Fat Emulsion Intravenous 1,920 ml @ 80 mls/hr TPN CONT IV Last administered on 08/21/19at 22:04; Start 08/21/19 at 22:00; Stop 08/22/19 at 21:59; Status DC Hydromorphone HCl (Dilaudid) 0.4 mg PRN Q4HRS PRN IVP PAIN Last administered on 08/22/19at 10:57; Start 08/22/19 at 09:00; Stop 08/22/19 at 18:59; Status DC Micafungin Sodium 100 mg/Dextrose 100 ml @ 100 mls/hr Q24H IV Last administered on 09/13/19at 12:17; Start 08/22/19 at 11:00; Stop 09/14/19 at 09:59; Status DC Daptomycin 485 mg/ Sodium Chloride 50 ml @ 100 mls/hr Q24H IV Last administered on 08/29/19at 13:10; Start 08/22/19 at 11:00; Stop 08/30/19 at 07:44; Status DC Potassium Chloride 75 meq/ Magnesium Sulfate 15 meq/Calcium Gluconate 8 meq/ Multivitamins 10 ml/Chromium/ Copper/Manganese/ Seleni/Zn 0.5 ml/ Insulin Human Regular 25 unit/ Total Parenteral Nutrition/Amino Acids/Dextrose/ Fat Emulsion Intravenous 1,920 ml @ 80 mls/hr TPN CONT IV Last administered on 08/22/19at 23:08; Start 08/22/19 at 22:00; Stop 08/23/19 at 21:59; Status DC Haloperidol Lactate (Haldol Inj) 3 mg 1X ONCE IVP Last administered on 08/22/19at 14:37; Start 08/22/19 at 14:30; Stop 08/22/19 at 14:31; Status DC Hydromorphone HCl (Dilaudid) 1 mg PRN Q4HRS PRN IVP PAIN Last administered on 09/05/19at 06:25; Start 08/22/19 at 19:00; Stop 09/05/19 at 17:10; Status DC Potassium Chloride 75 meq/ Magnesium Sulfate 15 meq/Calcium Gluconate 8 meq/ Multivitamins 10 ml/Chromium/ Copper/Manganese/ Seleni/Zn 0.5 ml/ Insulin Human Regular 20 unit/ Total Parenteral Nutrition/Amino Acids/Dextrose/ Fat Emulsion Intravenous 1,920 ml @ 80 mls/hr TPN CONT IV Last administered on 08/23/19at 22:10; Start 08/23/19 at 22:00; Stop 08/24/19 at 21:59; Status DC Lidocaine HCl (Buffered Lidocaine 1%) 3 ml STK-MED ONCE .ROUTE ; Start 08/24/19 at 11:31; Stop 08/24/19 at 11:31; Status DC Lidocaine HCl (Buffered Lidocaine 1%) 3 ml STK-MED ONCE .ROUTE ; Start 08/24/19 at 12:28; Stop 08/24/19 at 12:29; Status DC Lidocaine HCl (Buffered Lidocaine 1%) 6 ml 1X ONCE INJ Last administered on 08/24/19at 12:53; Start 08/24/19 at 12:45; Stop 08/24/19 at 12:46; Status DC Potassium Chloride 75 meq/ Magnesium Sulfate 15 meq/Calcium Gluconate 8 meq/ Multivitamins 10 ml/Chromium/ Copper/Manganese/ Seleni/Zn 0.5 ml/ Insulin Human Regular 20 unit/ Total Parenteral Nutrition/Amino Acids/Dextrose/ Fat Emulsion Intravenous 1,920 ml @ 80 mls/hr TPN CONT IV Last administered on 08/24/19at 22:00; Start 08/24/19 at 22:00; Stop 08/25/19 at 21:59; Status DC Potassium Chloride 75 meq/ Magnesium Sulfate 15 meq/Calcium Gluconate 8 meq/ Multivitamins 10 ml/Chromium/ Copper/Manganese/ Seleni/Zn 0.5 ml/ Insulin Human Regular 15 unit/ Total Parenteral Nutrition/Amino Acids/Dextrose/ Fat Emulsion Intravenous 1,920 ml @ 80 mls/hr TPN CONT IV Last administered on 08/25/19at 2 2:28; Start 08/25/19 at 22:00; Stop 08/26/19 at 21:59; Status DC Vecuronium [place] (Norcuron Bolus) 6 mg PRN Q6HRS PRN IV VENT ASYNCHRONY; Start 08/25/19 at 19:15; Stop 08/25/19 at 19:35; Status DC Bumetanide (Bumex) 2 mg 1X ONCE IV Last administered on 08/25/19at 22:09; Start 08/25/19 at 19:45; Stop 08/25/19 at 19:46; Status DC Lidocaine HCl (Buffered Lidocaine 1%) 3 ml STK-MED ONCE .ROUTE ; Start 08/26/19 at 07:59; Stop 08/26/19 at 07:59; Status DC Midazolam HCl (Versed) 5 mg STK-MED ONCE .ROUTE ; Start 08/26/19 at 08:36; Stop 08/26/19 at 08:36; Status DC Fentanyl Citrate (Fentanyl 5ml Vial) 250 mcg STK-MED ONCE .ROUTE ; Start 08/26/19 at 08:36; Stop 08/26/19 at 08:37; Status DC Lidocaine HCl (Buffered Lidocaine 1%) 3 ml 1X ONCE IJ Last administered on 08/26/19at 09:30; Start 08/26/19 at 09:15; Stop 08/26/19 at 09:16; Status DC Midazolam HCl (Versed) 5 mg 1X ONCE IV Last administered on 08/26/19at 09:30; Start 08/26/19 at 09:15; Stop 08/26/19 at 09:16; Status DC Fentanyl Citrate (Fentanyl 5ml Vial) 250 mcg 1X ONCE IV Last administered on 08/26/19at 09:30; Start 08/26/19 at 09:15; Stop 08/26/19 at 09:16; Status DC Bumetanide (Bumex) 2 mg DAILY IV Last administered on 09/05/19at 08:07; Start 08/26/19 at 10:00; Stop 09/05/19 at 17:15; Status DC Potassium Chloride 75 meq/ Magnesium Sulfate 15 meq/ Multivitamins 10 ml/Chromium/ Copper/Manganese/ Seleni/Zn 0.5 ml/ Insulin Human Regular 15 unit/ Total Parenteral Nutrition/Amino Acids/Dextrose/ Fat Emulsion Intravenous 1,920 ml @ 80 mls/hr TPN CONT IV Last administered on 08/26/19at 21:59; Start 08/26/19 at 22:00; Stop 08/27/19 at 21:59; Status DC Metoclopramide HCl (Reglan Vial) 10 mg PRN Q3HRS PRN IVP NAUSEA/VOMITING-3rd choice Last administered on 09/01/19at 04:25; Start 08/27/19 at 16:45 Potassium Chloride 75 meq/ Magnesium Sulfate 15 meq/ Multivitamins 10 ml/Chromium/ Copper/Manganese/ Seleni/Zn 0.5 ml/ Insulin Human Regular 15 unit/ Total Parenteral Nutrition/Amino Acids/Dextrose/ Fat Emulsion Intravenous 1,920 ml @ 80 mls/hr TPN CONT IV Last administered on 08/27/19at 22:41; Start 08/27/19 at 22:00; Stop 08/28/19 at 21:59; Status DC Magnesium Sulfate 50 ml @ 25 mls/hr 1X ONCE IV Last administered on 08/28/19at 10:44; Start 08/28/19 at 09:00; Stop 08/28/19 at 10:59; Status DC Potassium Chloride/Water 100 ml @ 100 mls/hr 1X ONCE IV Last administered on 08/28/19at 09:37; Start 08/28/19 at 09:00; Stop 08/28/19 at 09:59; Status DC Duloxetine HCl (Cymbalta) 30 mg DAILY PO Last administered on 08/29/19at 09:48; Start 08/28/19 at 14:00; Stop 08/31/19 at 10:25; Status DC Potassium Chloride 80 meq/ Magnesium Sulfate 20 meq/ Multivitamins 10 ml/Chromium/ Copper/Manganese/ Seleni/Zn 0.5 ml/ Insulin Human Regular 15 unit/ Total Parenteral Nutrition/Amino Acids/Dextrose/ Fat Emulsion Intravenous 1,920 ml @ 80 mls/hr TPN CONT IV Last administered on 08/28/19at 21:42; Start 08/28/19 at 22:00; Stop 08/29/19 at 21:59; Status DC Potassium Chloride 80 meq/ Magnesium Sulfate 20 meq/ Multivitamins 10 ml/Chromium/ Copper/Manganese/ Seleni/Zn 0.5 ml/ Insulin Human Regular 15 unit/ Total Parenteral Nutrition/Amino Acids/Dextrose/ Fat Emulsion Intravenous 1,920 ml @ 80 mls/hr TPN CONT IV Last administered on 08/29/19at 22:20; Start 08/29/19 at 22:00; Stop 08/30/19 at 21:59; Status DC Lidocaine HCl (Buffered Lidocaine 1%) 3 ml STK-MED ONCE .ROUTE ; Start 08/30/19 at 09:54; Stop 08/30/19 at 09:55; Status DC Hydromorphone HCl (Dilaudid Standard OIL AND GAS LEASE PUMPER) 12 mg STK-MED ONCE IV ; Start 08/19/19 at 15:50; Stop 08/30/19 at 11:24; Status DC Potassium Chloride 80 meq/ Magnesium Sulfate 20 meq/ Multivitamins 10 ml/Chromium/ Copper/Manganese/ Seleni/Zn 0.5 ml/ Insulin Human Regular 15 unit/ Total Parenteral Nutrition/Amino Acids/Dextrose/ Fat Emulsion Intravenous 1,920 ml @ 80 mls/hr TPN CONT IV Last administered on 08/30/19at 21:40; Start 08/30/19 at 22:00; Stop 08/31/19 at 21:59; Status DC Lidocaine HCl (Buffered Lidocaine 1%) 6 ml 1X ONCE INJ Last administered on 08/30/19at 14:15; Start 08/30/19 at 14:15; Stop 08/30/19 at 14:16; Status DC Potassium Chloride 80 meq/ Magnesium Sulfate 20 meq/ Multivitamins 10 ml/Chromium/ Copper/Manganese/ Seleni/Zn 1 ml/ Insulin Human Regular 15 unit/ Total Parenteral Nutrition/Amino Acids/Dextrose/ Fat Emulsion Intravenous 1,920 ml @ 80 mls/hr TPN CONT IV Last administered on 08/31/19at 22:04; Start 08/31/19 at 22:00; Stop 09/01/19 at 21:59; Status DC Potassium Chloride/Water 100 ml @ 100 mls/hr 1X ONCE IV Last administered on 09/01/19at 11:34; Start 09/01/19 at 11:00; Stop 09/01/19 at 11:59; Status DC Potassium Chloride 90 meq/ Magnesium Sulfate 20 meq/ Multivitamins 10 ml/Chromium/ Copper/Manganese/ Seleni/Zn 1 ml/ Insulin Human Regular 15 unit/ Total Parenteral Nutrition/Amino Acids/Dextrose/ Fat Emulsion Intravenous 1,920 ml @ 80 mls/hr TPN CONT IV Last administered on 09/01/19at 22:57; Start 09/01/19 at 22:00; Stop 09/02/19 at 21:59; Status DC Potassium Chloride 90 meq/ Magnesium Sulfate 20 meq/ Multivitamins 10 ml/Chromium/ Copper/Manganese/ Seleni/Zn 1 ml/ Insulin Human Regular 15 unit/ Total Parenteral Nutrition/Amino Acids/Dextrose/ Fat Emulsion Intravenous 1,920 ml @ 80 mls/hr TPN CONT IV Last administered on 09/02/19at 22:48; Start 09/02/19 at 22:00; Stop 09/03/19 at 21:59; Status DC Potassium Chloride 90 meq/ Magnesium Sulfate 20 meq/ Multivitamins 10 ml/Chromium/ Copper/Manganese/ Seleni/Zn 1 ml/ Insulin Human Regular 15 unit/ Total Parenteral Nutrition/Amino Acids/Dextrose/ Fat Emulsion Intravenous 1,890 ml @ 78.75 mls/ hr TPN CONT IV Last administered on 09/03/19at 22:15; Start 09/03/19 at 22:00; Stop 09/04/19 at 21:59; Status DC Linezolid/Dextrose 300 ml @ 300 mls/hr Q12HR IV Last administered on 09/06/19at 21:08; Start 09/04/19 at 09:00; Stop 09/07/19 at 08:11; Status DC Daptomycin 450 mg/ Sodium Chloride 50 ml @ 100 mls/hr Q24H IV Last administered on 09/07/19at 09:25; Start 09/04/19 at 09:00; Stop 09/08/19 at 08:30; Status DC Potassium Chloride 90 meq/ Magnesium Sulfate 20 meq/ Multivitamins 10 ml/Chromium/ Copper/Manganese/ Seleni/Zn 1 ml/ Insulin Human Regular 15 unit/ Total Parenteral Nutrition/Amino Acids/Dextrose/ Fat Emulsion Intravenous 1,890 ml @ 78.75 mls/ hr TPN CONT IV Last administered on 09/04/19at 21:34; Start 09/04/19 at 22:00; Stop 09/05/19 at 21:59; Status DC Lorazepam (Ativan Inj) 2 mg STK-MED ONCE .ROUTE ; Start 09/04/19 at 14:58; Stop 09/04/19 at 14:58; Status DC Metoprolol Tartrate (Lopressor Vial) 5 mg 1X ONCE IVP Last administered on 09/04/19at 15:31; Start 09/04/19 at 15:15; Stop 09/04/19 at 15:16; Status DC Lorazepam (Ativan Inj) 2 mg 1X ONCE IVP Last administered on 09/04/19at 15:30; Start 09/04/19 at 15:15; Stop 09/04/19 at 15:16; Status DC Enoxaparin Sodium (Lovenox 40mg Syringe) 40 mg Q24H SQ Last administered on 09/23/19at 17:44; Start 09/04/19 at 17:00; Stop 09/25/19 at 06:50; Status DC Lorazepam (Ativan Inj) 1 mg PRN Q4HRS PRN IVP ANXIETY / AGITATION MILD-MOD Last administered on 09/18/19at 15:55; Start 09/04/19 at 19:15; Stop 09/20/19 at 11:45; Status DC Lorazepam (Ativan Inj) 2 mg PRN Q4HRS PRN IVP ANXIETY / AGITATION SEVERE Last administered on 09/19/19at 07:55; Start 09/04/19 at 19:15; Stop 09/20/19 at 11:45; Status DC Fentanyl Citrate (Fentanyl 2ml Vial) 50 mcg PRN Q4HRS PRN IVP SEVERE PAIN Last administered on 10/01/19at 05:15; Start 09/05/19 at 13:15; Stop 10/02/19 at 09:29; Status DC Fentanyl Citrate (Fentanyl 2ml Vial) 25 mcg PRN Q4HRS PRN IVP MODERATE PAIN Last administered on 10/01/19at 00:27; Start 09/05/19 at 13:15; Stop 10/02/19 at 09:30; Status DC Potassium Chloride 90 meq/ Magnesium Sulfate 20 meq/ Multivitamins 10 ml/Chromium/ Copper/Manganese/ Seleni/Zn 1 ml/ Insulin Human Regular 15 unit/ Total Parenteral Nutrition/Amino Acids/Dextrose/ Fat Emulsion Intravenous 1,890 ml @ 78.75 mls/ hr TPN CONT IV Last administered on 09/05/19at 22:18; Start 09/05/19 at 22:00; Stop 09/06/19 at 21:59; Status DC Furosemide (Lasix) 40 mg 1X ONCE IVP Last administered on 09/05/19at 21:51; Start 09/05/19 at 21:45; Stop 09/05/19 at 21:48; Status DC Albumin Human 100 ml @ 100 mls/hr 1X PRN PRN IV SEE COMMENTS; Start 09/06/19 at 01:30 Furosemide (Lasix) 40 mg [id number] IVP Last administered on 09/21/19at 08:04; Start 09/06/19 at 14:00; Stop 09/21/19 at 13:07; Status DC Potassium Chloride 90 meq/ Magnesium Sulfate 20 meq/ Multivitamins 10 ml/Chromium/ Copper/Manganese/ Seleni/Zn 1 ml/ Insulin Human Regular 15 unit/ Total Parenteral Nutrition/Amino Acids/Dextrose/ Fat Emulsion Intravenous 1,800 ml @ 75 mls/hr TPN CONT IV Last administered on 09/06/19at 22:31; Start 09/06/19 at 22:00; Stop 09/07/19 at 21:59; Status DC Potassium Chloride 90 meq/ Magnesium Sulfate 20 meq/ Multivitamins 10 ml/Chromium/ Copper/Manganese/ Seleni/Zn 1 ml/ Insulin Human Regular 15 unit/ Total Parenteral Nutrition/Amino Acids/Dextrose/ Fat Emulsion Intravenous 1,800 ml @ 75 mls/hr TPN CONT IV Last administered on 09/07/19at 22:28; Start 09/07/19 at 22:00; Stop 09/08/19 at 21:59; Status DC Potassium Chloride 110 meq/ Magnesium Sulfate 20 meq/ Multivitamins 10 ml/Chromium/ Copper/Manganese/ Seleni/Zn 1 ml/ Insulin Human Regular 15 unit/ Total Parenteral Nutrition/Amino Acids/Dextrose/ Fat Emulsion Intravenous 1,800 ml @ 75 mls/hr TPN CONT IV Last administered on 09/08/19at 22:01; Start 09/08/19 at 22:00; Stop 09/09/19 at 21:59; Status DC Saliva Substitute (Biotene Moisturizing Mouth) 2 spray PRN Q15MIN PRN PO DRY MOUTH; Start 09/08/19 at 11:00 Potassium Chloride 110 meq/ Magnesium Sulfate 20 meq/ Multivitamins 10 ml/Chromium/ Copper/Manganese/ Seleni/Zn 1 ml/ Insulin Human Regular 15 unit/ Total Parenteral Nutrition/Amino Acids/Dextrose/ Fat Emulsion Intravenous 1,800 ml @ 75 mls/hr TPN CONT IV Last administered on 09/09/19at 22:21; Start 09/09/19 at 22:00; Stop 09/10/19 at 21:59; Status DC Potassium Chloride 110 meq/ Magnesium Sulfate 20 meq/ Multivitamins 10 ml/Chromium/ Copper/Manganese/ Seleni/Zn 1 ml/ Insulin Human Regular 15 unit/ Total Parenteral Nutrition/Amino Acids/Dextrose/ Fat Emulsion Intravenous 1,800 ml @ 75 mls/hr TPN CONT IV Last administered on 09/10/19at 22:04; Start 09/10/19 at 22:00; Stop 09/11/19 at 21:59; Status DC Potassium Chloride 110 meq/ Magnesium Sulfate 20 meq/ Multivitamins 10 ml/Chromium/ Copper/Manganese/ Seleni/Zn 1 ml/ Insulin Human Regular 15 unit/ Total Parenteral Nutrition/Amino Acids/Dextrose/ Fat Emulsion Intravenous 1,800 ml @ 75 mls/hr TPN CONT IV Last administered on 09/11/19at 22:48; Start 09/11/19 at 22:00; Stop 09/12/19 at 21:59; Status DC Potassium Chloride 70 meq/ Magnesium Sulfate 20 meq/ Multivitamins 10 ml/Chromium/ Copper/Manganese/ Seleni/Zn 1 ml/ Insulin Human Regular 15 unit/ Total Parenteral Nutrition/Amino Acids/Dextrose/ Fat Emulsion Intravenous 1,800 ml @ 75 mls/hr TPN CONT IV Last administered on 09/12/19at 21:39; Start 09/12/19 at 22:00; Stop 09/13/19 at 21:59; Status DC Meropenem 500 mg/ Sodium Chloride 50 ml @ 100 mls/hr Q6HRS IV Last administered on 09/14/19at 06:02; Start 09/12/19 at 18:00; Stop 09/14/19 at 09: 59; Status DC Barium Sulfate (Varibar Thin Liquid Apple) 148 gm 1X ONCE PO ; Start 09/13/19 at 11:45; Stop 09/13/19 at 11:49; Status DC Potassium Chloride 70 meq/ Magnesium Sulfate 20 meq/ Multivitamins 10 ml/Chromium/ Copper/Manganese/ Seleni/Zn 1 ml/ Insulin Human Regular 15 unit/ Total Parenteral Nutrition/Amino Acids/Dextrose/ Fat Emulsion Intravenous 1,800 ml @ 75 mls/hr TPN CONT IV Last administered on 09/13/19at 22:27; Start 09/13/19 at 22:00; Stop 09/14/19 at 21:59; Status DC Piperacillin Sod/ Tazobactam Sod 3.375 gm/Sodium Chloride 50 ml @ 100 mls/hr Q6HRS IV Last administered on 09/22/19at 06:10; Start 09/14/19 at 12:00; Stop 09/22/19 at 07:26; Status DC Potassium Chloride 70 meq/ Magnesium Sulfate 20 meq/ Multivitamins 10 ml/Chromium/ Copper/Manganese/ Seleni/Zn 1 ml/ Insulin Human Regular 15 unit/ Total Parenteral Nutrition/Amino Acids/Dextrose/ Fat Emulsion Intravenous 1,800 ml @ 75 mls/hr TPN CONT IV Last administered on 09/14/19at 22:03; Start 09/14/19 at 22:00; Stop 09/15/19 at 21:59; Status DC Potassium Chloride 70 meq/ Magnesium Sulfate 20 meq/ Multivitamins 10 ml/Chromium/ Copper/Manganese/ Seleni/Zn 1 ml/ Insulin Human Regular 15 unit/ Total Parenteral Nutrition/Amino Acids/Dextrose/ Fat Emulsion Intravenous 1,800 ml @ 75 mls/hr TPN CONT IV Last administered on 09/15/19at 22:33; Start 09/15/19 at 22:00; Stop 09/16/19 at 21:59; Status DC Potassium Chloride 70 meq/ Magnesium Sulfate 20 meq/ Multivitamins 10 ml/Chromium/ Copper/Manganese/ Seleni/Zn 1 ml/ Insulin Human Regular 15 unit/ Total Parenteral Nutrition/Amino Acids/Dextrose/ Fat Emulsion Intravenous 1,800 ml @ 75 mls/hr TPN CONT IV Last administered on 09/16/19at 23:13; Start 09/16/19 at 22:00; Stop 09/17/19 at 21:59; Status DC Potassium Chloride 80 meq/ Magnesium Sulfate 20 meq/ Multivitamins 10 ml/Chromium/ Copper/Manganese/ Seleni/Zn 1 ml/ Insulin Human Regular 15 unit/ Total Parenteral Nutrition/Amino Acids/Dextrose/ Fat Emulsion Intravenous 1,800 ml @ 75 mls/hr TPN CONT IV Last administered on 09/17/19at 22:30; Start 09/17/19 at 22:00; Stop 09/18/19 at 21:59; Status DC Potassium Chloride 80 meq/ Magnesium Sulfate 20 meq/ Multivitamins 10 ml/ Chromium/ Copper/Manganese/ Seleni/Zn 1 ml/ Insulin Human Regular 15 unit/ Total Parenteral Nutrition/Amino Acids/Dextrose/ Fat Emulsion Intravenous 1,800 ml @ 75 mls/hr TPN CONT IV Last administered on 09/18/19at 21:54; Start 09/18/19 at 22:00; Stop 09/19/19 at 21:59; Status DC Potassium Chloride/Water 100 ml @ 100 mls/hr 1X ONCE IV Last administered on 09/19/19at 10:15; Start 09/19/19 at 10:00; Stop 09/19/19 at 10:59; Status DC Potassium Chloride 90 meq/ Magnesium Sulfate 20 meq/ Multivitamins 10 ml/Chr omium/ Copper/Manganese/ Seleni/Zn 1 ml/ Insulin Human Regular 20 unit/ Total Parenteral Nutrition/Amino Acids/Dextrose/ Fat Emulsion Intravenous 1,800 ml @ 75 mls/hr TPN CONT IV Last administered on 09/19/19at 22:28; Start 09/19/19 at 22:00; Stop 09/20/19 at 21:59; Status DC Potassium Chloride 90 meq/ Magnesium Sulfate 20 meq/ Multivitamins 10 ml/Chromium/ Copper/Manganese/ Seleni/Zn 1 ml/ Insulin Human Regular 20 unit/ Total Parenteral Nutrition/Amino Acids/Dextrose/ Fat Emulsion Intravenous 1,800 ml @ 75 mls/hr TPN CONT IV Last administered on 09/20/19at 22:08; Start 09/20/19 at 22:00; Stop 09/21/19 at 21:59; Status DC Lorazepam (Ativan Inj) 0.25 mg PRN Q4HRS PRN IVP ANXIETY / AGITATION Last administered on 10/01/19at 02:25; Start 09/21/19 at 07:30 Potassium Chloride 90 meq/ Magnesium Sulfate 20 meq/ Multivitamins 10 ml/Chromium/ Copper/Manganese/ Seleni/Zn 1 ml/ Insulin Human Regular 20 unit/ Total Parenteral Nutrition/Amino Acids/Dextrose/ Fat Emulsion Intravenous 1,800 ml @ 75 mls/hr TPN CONT IV Last administered on 09/21/19at 23:13; Start 09/21/19 at 22:00; Stop 09/22/19 at 21:59; Status DC Furosemide (Lasix) 40 mg DAILY IVP Last administered on 09/23/19at 11:14; Start 09/21/19 at 13:30; Stop 09/25/19 at 09:12; Status DC Fluoxetine HCl (PROzac) 20 mg QHS PEG Last administered on 10/02/19at 21:32; Start 09/22/19 at 21:00 Fentanyl (Duragesic 50mcg/ Hr Patch) 1 patch Q72H TD Last administered on 09/22/19at 21:22; Start 09/22/19 at 21:00; Stop 10/01/19 at 12:00; Status DC Potassium Chloride 40 meq/ Potassium Acetate 60 meq/Magnesium Sulfate 10 meq/ Multivitamins 10 ml/Chromium/ Copper/Manganese/ Seleni/Zn 1 ml/ Insulin Human Regular 20 unit/ Total Parenteral Nutrition/Amino Acids/Dextrose/ Fat Emulsion Intravenous 1,800 ml @ 75 mls/hr TPN CONT IV Last administered on 09/23/19at 00:03; Start 09/22/19 at 22:00; Stop 09/23/19 at 21:59; Status DC Potassium Acetate 80 meq/Magnesium Sulfate 5 meq/ Multivitamins 10 ml/Chromium/ Copper/Manganese/ Seleni/Zn 1 ml/ Insulin Human Regular 20 unit/ Total Parenteral Nutrition/Amino Acids/Dextrose/ Fat Emulsion Intravenous 1,920 ml @ 80 mls/hr TPN CONT IV Last administered on 09/23/19at 21:59; Start 09/23/19 at 22:00; Stop 09/24/19 at 21:59; Status DC Potassium Acetate 60 meq/Magnesium Sulfate 5 meq/ Multivitamins 10 ml/Chromium/ Copper/Manganese/ Seleni/Zn 1 ml/ Insulin Human Regular 30 unit/ Total Parenteral Nutrition/Amino Acids/Dextrose/ Fat Emulsion Intravenous 1,920 ml @ 80 mls/hr TPN CONT IV Last administered on 09/24/19at 21:54; Start 09/24/19 at 22:00; Stop 09/25/19 at 21:59; Status DC Norepinephrine Bitartrate 8 mg/ Dextrose 258 ml @ 13.332 mls/ hr CONT PRN IV PER PROTOCOL Last administered on 09/25/19at 21:46; Start 09/25/19 at 06:30 Albumin Human 500 ml @ 125 mls/hr 1X ONCE IV Last administered on 09/25/19at 08:10; Start 09/25/19 at 08:15; Stop 09/25/19 at 12:14; Status DC Potassium Acetate 40 meq/Magnesium Sulfate 5 meq/ Multivitamins 10 ml/Chromium/ Copper/Manganese/ Seleni/Zn 1 ml/ Insulin Human Regular 30 unit/ Total Parenteral Nutrition/Amino Acids/Dextrose/ Fat Emulsion Intravenous 1,920 ml @ 80 mls/hr TPN CONT IV Last administered on 09/25/19at 22:23; Start 09/25/19 at 22:00; Stop 09/26/19 at 21:59; Status DC Meropenem 1 gm/ Sodium Chloride 100 ml @ 200 mls/hr Q8HRS IV ; Start 09/25/19 at 14:00; Status Cancel Meropenem 1 gm/ Sodium Chloride 100 ml @ 200 mls/hr Q8HRS IV Last administered on 09/25/19at 11:04; Start 09/25/19 at 10:00; Stop 09/25/19 at 13:00; Status DC Meropenem 1 gm/ Sodium Chloride 100 ml @ 200 mls/hr Q12HR IV Last administered on 10/03/19at 08:31; Start 09/25/19 at 21:00 Sodium Chloride 1,000 ml @ 1,000 mls/hr 1X ONCE IV Last administered on 09/25/19at 11:06; Start 09/25/19 at 10:45; Stop 09/25/19 at 11:44; Status DC Micafungin Sodium 100 mg/Dextrose 100 ml @ 100 mls/hr Q24H IV Last administered on 10/02/19at 11:10; Start 09/25/19 at 11:00 Daptomycin 410 mg/ Sodium Chloride 50 ml @ 100 mls/hr Q24H IV Last administered on 09/27/19at 13:33; Start 09/25/19 at 14:00; Stop 09/28/19 at 08:30; Status DC Midazolam HCl (Versed) 2 mg STK-MED ONCE .ROUTE ; Start 09/25/19 at 14:47; Stop 09/25/19 at 14:48; Status DC Fentanyl Citrate (Fentanyl 2ml Vial) 100 mcg STK-MED ONCE .ROUTE ; Start 09/25/19 at 14:47; Stop 09/25/19 at 14:48; Status DC Flumazenil (Romazicon) 0.5 mg STK-MED ONCE IV ; Start 09/25/19 at 14:48; Stop 09/25/19 at 14:48; Status DC Naloxone HCl (Narcan) 0.4 mg STK-MED ONCE .ROUTE ; Start 09/25/19 at 14:48; Stop 09/25/19 at 14:48; Status DC Lidocaine HCl (Lidocaine 1% 20ml Vial) 20 ml STK-MED ONCE .ROUTE ; Start 09/25/19 at 14:48; Stop 09/25/19 at 14:48; Status DC Midazolam HCl (Versed) 2 mg 1X ONCE IV Last administered on 09/25/19at 15:28; Start 09/25/19 at 15:00; Stop 09/25/19 at 15:01; Status DC Fentanyl Citrate (Fentanyl 2ml Vial) 100 mcg 1X ONCE IV Last administered on 09/25/19at 15:28; Start 09/25/19 at 15:00; Stop 09/25/19 at 15:01; Status DC Lidocaine HCl (Lidocaine 1% 20ml Vial) 20 ml 1X ONCE INJ Last administered on 09/25/19at 15:30; Start 09/25/19 at 15:00; Stop 09/25/19 at 15:01; Status DC Sodium Chloride 1,000 ml @ 100 mls/hr Q10H IV Last administered on 10/03/19at 03:38; Start 09/25/19 at 20:00 Sodium Bicarbonate (Sodium Bicarb Adult 8.4% Syr) 50 meq 1X ONCE IV Last administered on 09/25/19at 21:47; Start 09/25/19 at 22:00; Stop 09/25/19 at 22:01; Status DC Potassium Acetate 40 meq/Magnesium Sulfate 5 meq/ Multivitamins 10 ml/Chromium/ Copper/Manganese/ Seleni/Zn 1 ml/ Insulin Human Regular 30 unit/ Total Parenteral Nutrition/Amino Acids/Dextrose/ Fat Emulsion Intravenous 1,920 ml @ 80 mls/hr TPN CONT IV Last administered on 09/26/19at 22:28; Start 09/26/19 at 22:00; Stop 09/27/19 at 21:59; Status DC Sodium Chloride 500 ml @ 500 mls/hr 1X ONCE IV Last administered on 09/27/19at 06:39; Start 09/27/19 at 06:45; Stop 09/27/19 at 07:44; Status DC Potassium Acetate 40 meq/Magnesium Sulfate 5 meq/ Multivitamins 10 ml/Chromium/ Copper/Manganese/ Seleni/Zn 1 ml/ Insulin Human Regular 30 unit/ Total Parenteral Nutrition/Amino Acids/Dextrose/ Fat Emulsion Intravenous 1,920 ml @ 80 mls/hr TPN CONT IV Last administered on 09/27/19at 22:03; Start 09/27/19 at 22:00; Stop 09/28/19 at 21:59; Status DC Metoprolol Tartrate (Lopressor Vial) 5 mg PRN Q6HRS PRN IVP HYPERTENSION Last administered on 10/01/19at 04:03; Start 09/28/19 at 09:00 Potassium Acetate 40 meq/Magnesium Sulfate 5 meq/ Multivitamins 10 ml/Chromium/ Copper/Manganese/ Seleni/Zn 1 ml/ Insulin Human Regular 30 unit/ Total Parenteral Nutrition/Amino Acids/Dextrose/ Fat Emulsion Intravenous 1,920 ml @ 80 mls/hr TPN CONT IV Last administered on 09/28/19at 21:26; Start 09/28/19 at 22:00; Stop 09/29/19 at 21:59; Status DC Potassium Acetate 40 meq/Magnesium Sulfate 5 meq/ Multivitamins 10 ml/Chromium/ Copper/Manganese/ Seleni/Zn 1 ml/ Insulin Human Regular 30 unit/ Total Parenteral Nutrition/Amino Acids/Dextrose/ Fat Emulsion Intravenous 1,920 ml @ 80 mls/hr TPN CONT IV Last administered on 09/29/19at 23:23; Start 09/29/19 at 22:00; Stop 09/30/19 at 21:59; Status DC Potassium Acetate 40 meq/Magnesium Sulfate 5 meq/ Multivitamins 10 ml/Chromium/ Copper/Manganese/ Seleni/Zn 1 ml/ Insulin Human Regular 30 unit/ Total Pa renteral Nutrition/Amino Acids/Dextrose/ Fat Emulsion Intravenous 1,920 ml @ 80 mls/hr TPN CONT IV Last administered on 09/30/19at 21:35; Start 09/30/19 at 22:00; Stop 10/01/19 at 21:59; Status DC Furosemide (Lasix) 20 mg 1X ONCE IVP Last administered on 10/01/19at 06:26; Start 10/01/19 at 06:15; Stop 10/01/19 at 06:16; Status DC Methylprednisolone Sodium Succinate (SOLU-Medrol 125MG VIAL) 125 mg 1X ONCE IV Last administered on 10/01/19at 06:26; Start 10/01/19 at 06:15; Stop 10/01/19 at 06:16; Status DC Albuterol/ Ipratropium (Duoneb) 3 ml Q4HRS NEB Last administered on 10/03/19at 07:53; Start 10/01/19 at 08:00 Fentanyl Citrate 30 ml @ 0 mls/hr CONT PRN IV SEE PROTOCOL Last administered on 10/02/19at 22:19; Start 10/01/19 at 06:00 Propofol 100 ml @ 0 mls/hr CONT PRN IV SEE PROTOCOL Last administered on 10/02/19at 11:09; Start 10/01/19 at 06:00 Fentanyl Citrate (Fentanyl 2ml Vial) 25 mcg PRN Q1HR PRN IV SEE COMMENTS; Start 10/01/19 at 06:00 Fentanyl Citrate (Fentanyl 2ml Vial) 50 mcg PRN Q1HR PRN IV SEE COMMENTS; Start 10/01/19 at 06:00 Chlorhexidine Gluconate (Peridex) 15 ml BID MM ; Start 10/01/19 at 09:00; Stop 10/01/19 at 07:58; Status DC Potassium Acetate 40 meq/Magnesium Sulfate 5 meq/ Multivitamins 10 ml/Chromium/ Copper/Manganese/ Seleni/Zn 1 ml/ Insulin Human Regular 30 unit/ Total Parenteral Nutrition/Amino Acids/Dextrose/ Fat Emulsion Intravenous 1,920 ml @ 80 mls/hr TPN CONT IV Last administered on 10/01/19at 21:19; Start 10/01/19 at 22:00; Stop 10/02/19 at 21:59; Status DC Acetylcysteine (Mucomyst 20% Resp Treatment) 600 mg BID NEB Last administered on 10/03/19at 07:53; Start 10/01/19 at 21:00 Magnesium Sulfate 100 ml @ 25 mls/hr 1X ONCE IV Last administered on 10/01/19at 15:48; Start 10/01/19 at 15:45; Stop 10/01/19 at 19:44; Status DC Potassium Acetate 40 meq/Magnesium Sulfate 5 meq/ Multivitamins 10 ml/Chromium/ Copper/Manganese/ Seleni/Zn 1 ml/ Insulin Human Regular 30 unit/ Total Parenteral Nutrition/Amino Acids/Dextrose/ Fat Emulsion Intravenous 1,920 ml @ 80 mls/hr TPN CONT IV Last administered on 10/02/19at 21:35; Start 10/02/19 at 22:00; Stop 10/03/19 at 21:59 Potassium Chloride/Water 100 ml @ 100 mls/hr Q1H IV Last administered on 10/03/19at 08:31; Start 10/03/19 at 07:00; Stop 10/03/19 at 08:59 Active Scripts Active Reported Bisoprolol Fumarate 5 Mg Tablet 10 Mg PO DAILY Vitals/I & O Vital Sign - Last 24 Hours 10/02/19 10/02/19 10/02/19 10/02/19 09:00 09:45 10:00 11:00 Pulse 69 67 71 Resp 20 20 20 B/P (MAP) 119/60 (79) 133/74 (93) 117/63 (81) Pulse Ox 99 100 99 100 O2 Delivery Ventilator Ventilator Ventilator Ventilator 10/02/19 10/02/19 10/02/19 10/02/19 11:34 12:00 12:00 12:00 Temp 97.5 97.5 Pulse 80 72 Resp 20 B/P (MAP) 134/70 (91) Pulse Ox 100 100 O2 Delivery Ventilator Ventilator Mechanical Ventilator 10/02/19 10/02/19 10/02/19 10/02/19 13:00 13:08 14:00 15:00 Pulse 64 82 80 Resp 20 20 20 B/P (MAP) 160/84 (109) 138/79 (98) 152/78 (102) Pulse Ox 100 100 99 99 O2 Delivery Ventilator Ventilator Ventilator Ventilator 10/02/19 10/02/19 10/02/19 10/02/19 16:00 16:00 16:00 16:27 Temp 97.5 97.5 Pulse 77 77 Resp 20 B/P (MAP) 126/68 (87) Pulse Ox 99 100 O2 Delivery Ventilator Mechanical Ventilator Ventilator 10/02/19 10/02/19 10/02/19 10/02/19 17:00 17:55 18:00 19:00 Pulse 81 79 79 Resp 20 20 20 B/P (MAP) 144/75 (98) 130/70 (90) 144/75 (98) Pulse Ox 100 100 99 99 O2 Delivery Ventilator Ventilator Ventilator Ventilator 10/02/19 10/02/19 10/02/19 10/02/19 20:00 20:00 20:00 20:15 Temp 97.3 97.3 Pulse 94 94 Resp 24 B/P (MAP) 130/98 (109) Pulse Ox 99 100 O2 Delivery Mechanical Ventilator Ventilator Ventilator 10/02/19 10/02/19 10/02/19 10/02/19 21:00 22:00 22:19 22:49 Pulse 88 92 Resp 20 20 20 20 B/P (MAP) 126/67 (86) 154/78 (103) Pulse Ox 100 100 100 100 O2 Delivery Ventilator Ventilator Ventilator Ventilator 10/02/19 10/02/19 10/03/19 10/03/19 23:00 23:42 00:00 00:00 Pulse 87 89 Resp 20 B/P (MAP) 145/77 (99) Pulse Ox 100 100 O2 Delivery Ventilator Ventilator Mechanical Ventilator 10/03/19 10/03/19 10/03/19 10/03/19 00:01 01:00 02:00 03:00 Temp 98.2 98.2 Pulse 89 88 85 88 Resp 20 20 20 20 B/P (MAP) 154/72 (99) 143/72 (95) 165/75 (105) 159/79 (105) Pulse Ox 100 100 100 100 O2 Delivery Ventilator Ventilator Ventilator Ventilator 10/03/19 10/03/19 10/03/19 10/03/19 03:37 04:00 04:00 04:00 Temp 98.3 98.3 Pulse 95 95 Resp 20 B/P (MAP) 142/68 (92) Pulse Ox 100 100 O2 Delivery Ventilator Ventilator Mechanical Ventilator 10/03/19 10/03/19 10/03/19 10/03/19 05:00 06:00 07:00 07:34 Pulse 93 97 90 Resp 20 20 20 B/P (MAP) 134/65 (88) 144/71 (95) 145/69 (94) Pulse Ox 99 99 99 O2 Delivery Ventilator Ventilator Ventilator Mechanical Ventilator 10/03/19 10/03/19 10/03/19 07:54 08:00 08:00 Temp 98.5 98.5 Pulse 98 Resp 20 B/P (MAP) 140/75 (96) Pulse Ox 99 99 O2 Delivery Ventilator Ventilator Intake and Output 0 10/02/19 10/02/19 10/03/19 15:00 23:00 07:00 Intake Total 1881.81 ml 1471.6 ml Output Total 776 ml 505 ml 580 ml Balance -776 ml 1376.81 ml 891.6 ml Justicifation of Admission Dx: Justifications for Admission: Justification of Admission Dx: Yes ABI AHN MD Oct 03, 2019 08:42
--- NOTE | 2019-10-03 09:42 | PDOC ---
Subjective: Subjective: Waves hello. Objective: Objective: D/w nurse, reviewed chart. Nurse says one drain "smells like bowel." Vital Signs: Vital Signs Date Time Temp Pulse Resp B/P (MAP) Pulse Ox O2 Delivery O2 Flow Rate FiO2 10/03/19 08:00 10/03/19 08:00 98.5 98 20 99 Ventilator 98.5 Labs: Laboratory Tests Test 10/02/19 10:45 10/02/19 12:11 10/02/19 17:52 10/03/19 00:23 O2 Saturation 98 % Arterial Blood pH 7.45 Arterial Blood pCO2 at Patient Temp 34 mmHg Arterial Blood pO2 at Patient Temp 146 mmHg Arterial Blood HCO3 23 mmol/L Arterial Blood Base Excess -1 mmol/L FiO2 40 Glucose (Fingerstick) 159 mg/dL 129 mg/dL 118 mg/dL Test 10/03/19 05:45 10/03/19 05:54 10/03/19 08:10 White Blood Count 8.1 x10^3/uL Red Blood Count 3.28 x10^6/uL Hemoglobin 9.3 g/dL Hematocrit 27.8 % Mean Corpuscular Volume 85 fL Mean Corpuscular Hemoglobin 28 pg Mean Corpuscular Hemoglobin Concent 34 g/dL Red Cell Distribution Width 18.6 % Platelet Count 434 x10^3/uL Neutrophils (%) (Auto) 80 % Lymphocytes (%) (Auto) 15 % Monocytes (%) (Auto) 5 % Eosinophils (%) (Auto) 1 % Basophils (%) (Auto) 0 % Neutrophils # (Auto) 6.4 x10^3/uL Lymphocytes # (Auto) 1.2 x10^3/uL Monocytes # (Auto) 0.4 x10^3/uL Eosinophils # (Auto) 0.1 x10^3/uL Basophils # (Auto) 0.0 x10^3/uL Sodium Level 143 mmol/L Potassium Level 3.3 mmol/L Chloride Level 111 mmol/L Carbon Dioxide Level 23 mmol/L Anion Gap 9 Blood Urea Nitrogen 34 mg/dL Creatinine 0.7 mg/dL Estimated GFR (Cockcroft-Gault) 88.9 BUN/Creatinine Ratio 49 Glucose Level 125 mg/dL Calcium Level 8.8 mg/dL Magnesium Level 1.8 mg/dL Total Bilirubin 0.5 mg/dL Aspartate Amino Transf (AST/SGOT) 62 U/L Alanine Aminotransferase (ALT/SGPT) 72 U/L Alkaline Phosphatase 132 U/L Total Protein 4.5 g/dL Albumin 1.1 g/dL Albumin/Globulin Ratio 0.3 Glucose (Fingerstick) 115 mg/dL O2 Saturation 97 % Arterial Blood pH 7.46 Arterial Blood pCO2 at Patient Temp 31 mmHg Arterial Blood pO2 at Patient Temp 117 mmHg Arterial Blood HCO3 22 mmol/L Arterial Blood Base Excess -2 mmol/L FiO2 35 ORDERED: ANAER/AEROB/GS COMMENTS: ABDOMINAL ABSCESS Has specimen been collected/obtained? Y Procedure Result GRAM STAIN Final Final GRAM NEGATIVE RODS:MODERATE SQUAMOUS EPI CELL:NOT APPLICABLE PMN (WBCs):RARE YEAST:MODERATE Unless otherwise specified, Testing Performed by: [address] [address] For Inquires, the Physician may contact the Microbiology department at [phone] ANAEROBIC-AEROBIC CULTURE Final Final MANY GRAM NEGATIVE RODS on 09/27/19 at 1158 FINAL ID= [PSEUDOMONAS [email or web address]] NO ANAEROBIC ORGANISMS ISOLATED on 10/01/19 at 0942 MICRO CHARGES MICRO CHARGES PSEUDOMONAS AERUGINOSA ANTIMICROBIAL SUSCEPTIBILITY Final Comment NEG ALEXANDRA 56 PSEUDOMONAS AERUGINOSA ANTIBIOTIC RESULT INTERPRETATION AMIKACIN <=16 S AZTREONAM >16 R CEFTAZIDIME >16 R CIPROFLOXACIN <=0.25 S ANTIMICROBIAL SUSCEPTIBILITY Final (continued) CEFEPIME 16 I CEFTAZIDIME/AVIBACTAM <=4 S GENTAMICIN <=2 S LEVOFLOXACIN <=0.5 S MEROPENEM <=1 S PIPERACILLIN/TAZOBACTAM 64 S TOBRAMYCIN <=2 S Unless otherwise specified, Testing Performed by: [address] [address] For Inquires, the Physician may contact the Microbiology department at [phone] ORDERED: RESP CULTURE COMMENTS: Has specimen been collected/obtained? Y Procedure Result GRAM STAIN EVALUATION Final Final GRAM NEG COCCOBACILLI:MANY SQUAMOUS EPI CELL:RARE PMN (WBCs):FEW Unless otherwise specified, Testing Performed by: [address] [address] For Inquires, the Physician may contact the Microbiology department at [phone] RESPIRATORY CULTURE PENDING BLOOD CULTURE Final NO GROWTH AFTER 5 DAYS Imaging: C/A/P CT 10/02 pending CXR 10/01 IMPRESSION: Bilateral pleural effusions and associated atelectasis with apparent slight decrease in left pleural effusion and improving right middle lobe atelectasis/consolidation. PE: GEN: ill LUNGS: diminished, vent HEART: RRR ABD: drains w/ darker brownish material, some black specks, also brownish draina ge from previous drain site on right NEURO/PSYCH: awake and alert A/P: Complicated pancreatitis -- Different drainage now and since I have seen, vomited and CT pending. Justicifation of Admission Dx: Justifications for Admission: Justification of Admission Dx: Yes CYNDEE FALCON Oct 03, 2019 09:42
[2019-10-03] MEDS: TPN PER PHARMACY MC PRN (09:51)
--- NOTE | 2019-10-03 09:54 | NUR ---
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, 8 inches Weight: 79.0 kg Current diet: NPO LABS: Sodium: 143 Potassium: 3.3 Chloride: 111 Calcium: 9.2 Corrected Calcium: 11.52 Magnesium: 1.8 CO2: 23 SCr: 0.7 Glucose: 115-125 Albumin: 1.1 AST: 62 ALT: 72 TPN FORMULA: TPN TYPE: Central Continuous AMINO ACIDS: 75 gm DEXTROSE: 250 gm LIPIDS: 20 gm SODIUM CHLORIDE: - mEq SODIUM ACETATE: - mEq SODIUM PHOSPHATE: - mmol POTASSIUM CHLORIDE: - mEq POTASSIUM ACETATE: 40 mEq POTASSIUM PHOSPHATE: - mmol MAGNESIUM: 5 mEq CALCIUM: - mEq INSULIN: 30 units MULTIPLE VITAMIN: 10 ml TRACE ELEMENTS: 1 ml(s) TPN PLAN: Drop in K today, 3.8 to 3.3. Forty meq KCl given by primary. Will not adjust in TPN for now, will watch trend. Pt on low-dose propofol, being titrated down and equivalent to 76 kcal/d. Will keep lipid component in TPN and check triglycerides frequently. Magnesium trending down, was high yesterday, will watch trend. BMP, mag, trig in AM. R: Continue TPN ABOVE. Will monitor electrolytes, glucose, and tolerance to TPN. CHRISTIAN VALLEJO [facility], 10/03/19 [id number]
--- NOTE | 2019-10-03 09:58 | NUR ---
Patient's drains were assessed at 0800, noticed that old KAYLIN site on left side was oozing a milky/sanguinous fluid. Notified and showed multiple physicians. Also notified them of the odor of the middle KAYLIN drainage. After that change and patient vomiting, orders received to do a CT chest/abd/pelvis. Patient to CT without complications, awaiting results.
--- NOTE | 2019-10-03 10:01 | NUR ---
SS following up with discharge planning. SS reviewed pt chart and discussed with pt RN. Pt is currently on the vent. Per RN, pt having leakage out of old KAYLIN site. Pt having brownage drainage out of drains. Pt remains on IV TPN, Micafungin, and Meropenem. Pt remains Full Code. SS will continue to follow for discharge planning.
[2019-10-03] MEDS: MICAFUNGIN 100 MG in IV DEXTROSE 5% 100ML 100 ML IV SCH (10:36)
--- NOTE | 2019-10-03 10:40 | RAD ---
EXAM: CT CHEST, ABDOMEN, AND PELVIS WITHOUT CONTRAST INDICATION: Pleural effusion and follow-up abdominal abscess COMPARISON: CT abdomen and pelvis 09/24/2019 and 09/14/2019. TECHNIQUE: Helical CT imaging performed of the chest, abdomen and pelvis without the use of intravenous contrast. Sagittal and coronal reformats were obtained. One or more of the following individualized dose reduction techniques were utilized for this examination: 1. Automated exposure control 2. Adjustment of the mA and/or kV according to patient size 3. Use of iterative reconstruction technique. FINDINGS: CHEST: Thyroid gland and thoracic inlet: Visualized portion of the thyroid gland is normal. Heart and great vessels: Heart is normal in size. No pericardial effusion. Thoracic aorta is normal in caliber. A left PICC terminates at the superior cavoatrial junction. Mediastinum and jair: No lymphadenopathy. A tracheostomy tube terminates at the level of the clavicular heads. A nasogastric tube terminates in the gastric fundus. Lungs and pleura: Slightly increased moderate to large left pleural effusion, predominantly layering with a small partially loculated component anterolaterally, and consolidation or atelectasis of the entire left lower lobe. Mild opacities in the left upper lobe. There is a small right pleural effusion with mild consolidative opacities, also mildly increased from prior exam. Chest wall and axillae: Bilateral breast implants are noted. No axillary lymphadenopathy. Bones: No acute osseous abnormality. ABDOMEN AND PELVIS: Liver: Liver is normal in size. A 1.2 cm hypodensity in the medial left hepatic lobe is unchanged. Gallbladder/Biliary Tree: Cholelithiasis is unchanged. No biliary duct dilatation. Pancreas: A large fluid collection in the pancreatic bed has slightly decreased in size, described below, the pancreas itself is difficult to visualize, which could be due to necrosis or obscuration of pancreatic parenchyma from the surrounding fluid collection. Evaluation is also limited due to lack of intravenous contrast. There is no gas within the pancreatic bed. Spleen: Grossly normal. Adrenal Glands: Normal. Kidneys/Ureters/Bladder: There is unchanged mild right hydronephrosis. No urolithiasis. Ureters not well visualized due to fluid collections. The left kidney is normal. Bladder is decompressed around a Lind catheter. Reproductive Organs: Uterus is anteverted. No adnexal mass. Stomach, small bowel, and colon: Nasogastric tube terminates in the gastric fundus. Stomach, small bowel, and colon are not well evaluated due to lack of IV and oral contrast and presence of multiple adjacent fluid collections. There is no evidence of bowel obstruction. Vasculature: Abdominal aorta is normal in caliber. Lymph Nodes: No lymphadenopathy. Peritoneum and retroperitoneum: There are multiple large fluid collections throughout the abdomen and pelvis, some of which are likely communicating with each other. The fluid collection in the pancreatic bed involving the lesser sac is slightly smaller, now measuring approximately 12.7 x 4.5 cm at the level of the lesser sac (image 38, series 4), previously 13.4 x 5.5 cm. There is a new pigtail catheter in this fluid collection. This fluid collection likely communicates with a fluid collection involving the right retroperitoneal space and right psoas muscle. This fluid collection measures approximately 10.1 x 9.4 cm, previously 10.3 x 9.7 cm. There is a new pigtail catheter in this collection. A fluid collection in the left paracolic gutter involving the left psoas muscle has slightly decreased in size, this measures 10.4 x 6.7 cm at the level of the inferior left renal pole, previously 11.7 x 6.7 cm. There is a new pleural catheter in this collection. There is a suspected additional fluid collection in the lower midpelvis between loops of bowel and abutting the bladder and uterus, measuring approximately 10.0 x 4.0 cm, unchanged. This could be confirmed by oral contrast to differentiate from a loop of bowel. No definite new fluid collection. There is a persistent small amount of free fluid in the pelvis. No free air. Bones: No acute osseous abnormality. Miscellaneous: Moderate new anasarca. IMPRESSION: 1. Sequela of pancreatitis with extensive pseudocyst/fluid collections throughout the abdomen and pelvis including a large peripancreatic fluid collection and bilateral retroperitoneal collections involving the psoas muscles. Fluid collections are unchanged to minimally decreased from CT 09/24/2019. There are 3 new pigtail drainage catheters in place. IV or oral contrast may be useful to better evaluate, if possible. 2. Slightly increased moderate to large partially loculated left pleural effusion with atelectasis or consolidation of the left lower lobe. Slightly increased small right pleural effusion and mild right pulmonary opacities. 3. Mild right hydronephrosis. 4. Cholelithiasis. 5. New anasarca. Electronically signed by: Kena Foote MD (10/03/2019 10:37 AM) [id number]
--- NOTE | 2019-10-03 10:55 | PDOC ---
PULMONARY PROGRESS NOTES Subjective back on vent 09/30, now on peep 5, fi02 35%, large secretion, , open eyes w verbal stimuli Patient intubated on 07/10 , s/p trach 07/24, transferred back to ICU 09/22 for syncope with collapse developed anemia, blood drainage from RLQ abdomen drain site, and surrounding firmness / developed septic shock 09/24 from abdomen source, required levo 09/24 s/p 3 new drains 09/24 with brown color drainage was place on AVAPS 09/24 post continues to have Dark blood / bloody drainage from KAYLIN drains, 1500 cc in past 24 hrs . off pressor Vitals Vital Signs Date Time Temp Pulse Resp B/P (MAP) Pulse Ox O2 Delivery O2 Flow Rate FiO2 10/03/19 10:00 113 20 126/70 (88) 100 Ventilator 10/03/19 08:00 98.5 98.5 Comments awake, nods yes and no to questions General: Alert HEENT: Other (nc at perrl nose clear neck trach site ok no lab no thyromegaly) Lungs: Other (diminshed in bases, Rhonci in LLL) Cardiovascular: S1, S2 Abdomen: Soft, Non-tender, Other (bleeding from Sx. site RLQ and firmness) Extremities: Other (+1 BLE edema) Skin: Warm, Dry Labs Laboratory Tests Test 10/01/19 11:24 10/01/19 15:08 10/01/19 18:19 10/01/19 20:10 Glucose (Fingerstick) 187 mg/dL (70-99) 220 mg/dL (70-99) White Blood Count 9.3 x10^3/uL (4.0-11.0) 8.4 x10^3/uL (4.0-11.0) Red Blood Count 2.78 x10^6/uL (3.50-5.40) 3.04 x10^6/uL (3.50-5.40) Hemoglobin 8.1 g/dL (12.0-15.5) 9.0 g/dL (12.0-15.5) Hematocrit 23.5 % (36.0-47.0) 26.0 % (36.0-47.0) Mean Corpuscular Volume 85 fL (79-100) 86 fL (79-100) Mean Corpuscular Hemoglobin 29 pg (25-35) 30 pg (25-35) Mean Corpuscular Hemoglobin Concent 34 g/dL (31-37) 35 g/dL (31-37) Red Cell Distribution Width 19.1 % (11.5-14.5) 18.7 % (11.5-14.5) Platelet Count 380 x10^3/uL (140-400) 388 x10^3/uL (140-400) Magnesium Level 1.5 mg/dL (1.8-2.4) Test 10/02/19 00:38 10/02/19 05:30 10/02/19 10:45 10/02/19 12:11 Glucose (Fingerstick) 188 mg/dL (70-99) 159 mg/dL (70-99) White Blood Count 7.5 x10^3/uL (4.0-11.0) Red Blood Count 2.95 x10^6/uL (3.50-5.40) Hemoglobin 8.6 g/dL (12.0-15.5) Hematocrit 25.0 % (36.0-47.0) Mean Corpuscular Volume 85 fL (79-100) Mean Corpuscular Hemoglobin 29 pg (25-35) Mean Corpuscular Hemoglobin Concent 34 g/dL (31-37) Red Cell Distribution Width 18.0 % (11.5-14.5) Platelet Count 382 x10^3/uL (140-400) Neutrophils (%) (Auto) 79 % (31-73) Lymphocytes (%) (Auto) 17 % (24-48) Monocytes (%) (Auto) 4 % (0-9) Eosinophils (%) (Auto) 0 % (0-3) Basophils (%) (Auto) 0 % (0-3) Neutrophils # (Auto) 5.9 x10^3/uL (1.8-7.7) Lymphocytes # (Auto) 1.3 x10^3/uL (1.0-4.8) Monocytes # (Auto) 0.3 x10^3/uL (0.0-1.1) Eosinophils # (Auto) 0.0 x10^3/uL (0.0-0.7) Basophils # (Auto) 0.0 x10^3/uL (0.0-0.2) Sodium Level 145 mmol/L (136-145) Potassium Level 3.8 mmol/L (3.5-5.1) Chloride Level 113 mmol/L (98-107) Carbon Dioxide Level 24 mmol/L (21-32) Anion Gap 8 (6-14) Blood Urea Nitrogen 36 mg/dL (7-20) Creatinine 0.8 mg/dL (0.6-1.0) Estimated GFR (Cockcroft-Gault) 76.2 BUN/Creatinine Ratio 45 (6-20) Glucose Level 227 mg/dL (70-99) Calcium Level 9.2 mg/dL (8.5-10.1) Phosphorus Level 3.7 mg/dL (2.6-4.7) Magnesium Level 2.5 mg/dL (1.8-2.4) Total Bilirubin 0.4 mg/dL (0.2-1.0) Aspartate Amino Transf (AST/SGOT) 31 U/L (15-37) Alanine Aminotransferase (ALT/SGPT) 29 U/L (14-59) Alkaline Phosphatase 82 U/L (46-116) Total Protein 4.6 g/dL (6.4-8.2) Albumin 1.0 g/dL (3.4-5.0) Albumin/Globulin Ratio 0.3 (1.0-1.7) O2 Saturation 98 % (92-99) Arterial Blood pH 7.45 (7.35-7.45) Arterial Blood pCO2 at Patient Temp 34 mmHg (35-46) Arterial Blood pO2 at Patient Temp 146 mmHg (75-108) Arterial Blood HCO3 23 mmol/L (21-28) Arterial Blood Base Excess -1 mmol/L (-3-3) FiO2 40 Test 10/02/19 17:52 10/03/19 00:23 10/03/19 05:45 10/03/19 05:54 Glucose (Fingerstick) 129 mg/dL (70-99) 118 mg/dL (70-99) 115 mg/dL (70-99) White Blood Count 8.1 x10^3/uL (4.0-11.0) Red Blood Count 3.28 x10^6/uL (3.50-5.40) Hemoglobin 9.3 g/dL (12.0-15.5) Hematocrit 27.8 % (36.0-47.0) Mean Corpuscular Volume 85 fL (79-100) Mean Corpuscular Hemoglobin 28 pg (25-35) Mean Corpuscular Hemoglobin Concent 34 g/dL (31-37) Red Cell Distribution Width 18.6 % (11.5-14.5) Platelet Count 434 x10^3/uL (140-400) Neutrophils (%) (Auto) 80 % (31-73) Lymphocytes (%) (Auto) 15 % (24-48) Monocytes (%) (Auto) 5 % (0-9) Eosinophils (%) (Auto) 1 % (0-3) Basophils (%) (Auto) 0 % (0-3) Neutrophils # (Auto) 6.4 x10^3/uL (1.8-7.7) Lymphocytes # (Auto) 1.2 x10^3/uL (1.0-4.8) Monocytes # (Auto) 0.4 x10^3/uL (0.0-1.1) Eosinophils # (Auto) 0.1 x10^3/uL (0.0-0.7) Basophils # (Auto) 0.0 x10^3/uL (0.0-0.2) Sodium Level 143 mmol/L (136-145) Potassium Level 3.3 mmol/L (3.5-5.1) Chloride Level 111 mmol/L (98-107) Carbon Dioxide Level 23 mmol/L (21-32) Anion Gap 9 (6-14) Blood Urea Nitrogen 34 mg/dL (7-20) Creatinine 0.7 mg/dL (0.6-1.0) Estimated GFR (Cockcroft-Gault) 88.9 BUN/Creatinine Ratio 49 (6-20) Glucose Level 125 mg/dL (70-99) Calcium Level 8.8 mg/dL (8.5-10.1) Magnesium Level 1.8 mg/dL (1.8-2.4) Total Bilirubin 0.5 mg/dL (0.2-1.0) Aspartate Amino Transf (AST/SGOT) 62 U/L (15-37) Alanine Aminotransferase (ALT/SGPT) 72 U/L (14-59) Alkaline Phosphatase 132 U/L (46-116) Total Protein 4.5 g/dL (6.4-8.2) Albumin 1.1 g/dL (3.4-5.0) Albumin/Globulin Ratio 0.3 (1.0-1.7) Test 10/03/19 08:10 O2 Saturation 97 % (92-99) Arterial Blood pH 7.46 (7.35-7.45) Arterial Blood pCO2 at Patient Temp 31 mmHg (35-46) Arterial Blood pO2 at Patient Temp 117 mmHg (75-108) Arterial Blood HCO3 22 mmol/L (21-28) Arterial Blood Base Excess -2 mmol/L (-3-3) FiO2 35 Laboratory Tests Test 10/02/19 12:11 10/02/19 17:52 10/03/19 00:23 10/03/19 05:45 Glucose (Fingerstick) 159 mg/dL (70-99) 129 mg/dL (70-99) 118 mg/dL (70-99) White Blood Count 8.1 x10^3/uL (4.0-11.0) Red Blood Count 3.28 x10^6/uL (3.50-5.40) Hemoglobin 9.3 g/dL (12.0-15.5) Hematocrit 27.8 % (36.0-47.0) Mean Corpuscular Volume 85 fL (79-100) Mean Corpuscular Hemoglobin 28 pg (25-35) Mean Corpuscular Hemoglobin Concent 34 g/dL (31-37) Red Cell Distribution Width 18.6 % (11.5-14.5) Platelet Count 434 x10^3/uL (140-400) Neutrophils (%) (Auto) 80 % (31-73) Lymphocytes (%) (Auto) 15 % (24-48) Monocytes (%) (Auto) 5 % (0-9) Eosinophils (%) (Auto) 1 % (0-3) Basophils (%) (Auto) 0 % (0-3) Neutrophils # (Auto) 6.4 x10^3/uL (1.8-7.7) Lymphocytes # (Auto) 1.2 x10^3/uL (1.0-4.8) Monocytes # (Auto) 0.4 x10^3/uL (0.0-1.1) Eosinophils # (Auto) 0.1 x10^3/uL (0.0-0.7) Basophils # (Auto) 0.0 x10^3/uL (0.0-0.2) Sodium Level 143 mmol/L (136-145) Potassium Level 3.3 mmol/L (3.5-5.1) Chloride Level 111 mmol/L (98-107) Carbon Dioxide Level 23 mmol/L (21-32) Anion Gap 9 (6-14) Blood Urea Nitrogen 34 mg/dL (7-20) Creatinine 0.7 mg/dL (0.6-1.0) Estimated GFR (Cockcroft-Gault) 88.9 BUN/Creatinine Ratio 49 (6-20) Glucose Level 125 mg/dL (70-99) Calcium Level 8.8 mg/dL (8.5-10.1) Magnesium Level 1.8 mg/dL (1.8-2.4) Total Bilirubin 0.5 mg/dL (0.2-1.0) Aspartate Amino Transf (AST/SGOT) 62 U/L (15-37) Alanine Aminotransferase (ALT/SGPT) 72 U/L (14-59) Alkaline Phosphatase 132 U/L (46-116) Total Protein 4.5 g/dL (6.4-8.2) Albumin 1.1 g/dL (3.4-5.0) Albumin/Globulin Ratio 0.3 (1.0-1.7) Test 10/03/19 05:54 10/03/19 08:10 Glucose (Fingerstick) 115 mg/dL (70-99) O2 Saturation 97 % (92-99) Arterial Blood pH 7.46 (7.35-7.45) Arterial Blood pCO2 at Patient Temp 31 mmHg (35-46) Arterial Blood pO2 at Patient Temp 117 mmHg (75-108) Arterial Blood HCO3 22 mmol/L (21-28) Arterial Blood Base Excess -2 mmol/L (-3-3) FiO2 35 Medications Active Scripts Medications Dose Route/Sig Max Daily Dose Days Date Category Bisoprolol Fumarate 5 Mg Tablet 10 Mg PO DAILY 07/04/19 Reported Comments CXR 10/02/2019 trach infilt effusion atelectasis on l side improved r effusion/atelectasis ct abdomen /pelvis 09/23 1. Removal of the percutaneous pigtail drainage catheters since the prior exam. Sequela of pancreatitis with extensive pseudocysts again demonstrated, the right-sided collections are slightly larger since the prior exam, the left-sided collections are stable. See above. 2. Moderate to large left pleural effusion with atelectasis and collapse of most of the left lower lobe, stable. Small right pleural effusion is stable. 3. Gallstone. ct chest 10/02 reviewed Impression . IMPRESSION: 1. Acute hypoxemic respiratory failure secondary to ARDS status post trach, developed anemia 09/24, blood drainage from RLQ abdomen drain site, and surrounding firmness / developed septic shock 09/24 from abdomen source, required levo 09/24 s/p 3 new drains 09/24 with brown color drainage, back on vent 09/30, Bloody drainage again from KAYLIN drains / another 1500 cc in last 24 hr 2. Gallstone pancreatitis, now with ongoing bleeding from prior drain. Anemic. s/p Tx multiple units over several days 3. septic shock/sepsis, recurrent 09/24, source abdomen. , off levo now, 4. Acute kidney injury-, Off HD--renal function decling. suspect JUANA on CKD due to hypotension , improved now 5. Acute gallstone pancreatitis. 6. Hypoalbuminemia. 7. Moderate persistent effusions, s/p left thora 08/29, reaccumulation of left effusion. O2 requirement not changed. 8. Fever- ,hypotension. suspect recurrent sepsis/ likely pancreatic source. Per ID, per surgery-- 9. Chronic anemia-- ongoing / s/p PRBC 10. Covid 19 testing negative 11. Moderate to large ascites-S/P paracentisis 12.S/P paracentisis with 4 liters removed on 08/03/19 13. S/P IR drain placement on 08/26/2019, removal, re inserted 09/24 14. Depression/Anxiety 15. Increase left effusion, ? loculated Plan . 1. back on vent 09/30, cxr reviewed, left moderate effusion/infilt/atelectasis, will plan for thoracentesis, titrate fio2 to keep sat 94%, cont vent support. Try off vent and TS today 2. Follow all cultures/ PSA from pelvic drains. Abx per ID 3. Follow surgery recs-- Acute pancreatitis with persistent necrosis ---- 08/14 status post KAYLIN drain placement + C paropsilosis; 08/23 + yeast & high amylase; s/p additional drains on 08/25, removal of drains and now increase pseudocyst and increase fluid collection. likely infected fluid/ sepsis. continues to have bloody drainage thru drains . 90 cc in last 24 hrs .Initiated BS abx.follow surgery rec, planning surgical intervention next few weeks 4. Follow ID recs for ABX---- 5. Follow nephrology recs ----- 6. Continue TPN 7. monitor HGB, 4 units since 09/23--monitor HGB transfuse if less than 8.5 8 s/p thoracentesis, 08/29, 3 litres removed 9. Pt remains critically ill from severe necrotic pancreatis. Even with surgery prognosis grim. Surgery informed family. DVT/GI PPX: protonix--- holding lovenox 2/2 anemia PT/OT D/W RN, rt and dr beckford, d/w ID critically ill cc time 30 min no overlap VINAYAK LANDRUM MD Oct 03, 2019 10:54
--- NOTE | 2019-10-03 11:29 | PDOC ---
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 CHIEF GAUGER 10/03/19 1129: SURGICAL PROGRESS NOTE Subjective awake d/w ID plans for thoracentesis today drains with decreasing output old drain site with drainage currently on left abdomen Vital Signs Vital Signs Date Time Temp Pulse Resp B/P (MAP) Pulse Ox O2 Delivery O2 Flow Rate FiO2 10/03/19 11:00 105 22 124/67 (86) 100 Tracheal Collar 10/03/19 08:00 98.5 98.5 I&O Intake and Output 10/03/19 07:00 Intake Total 3353.41 ml Output Total 1861 ml Balance 1492.41 ml IV Total 3353.41 ml Output Urine Total 1518 ml Drainage Total 343 ml General: Cooperative HEENT: Other (trach) Abdomen: Soft, Other (drains in place) Labs Laboratory Tests Test 10/01/19 15:08 10/01/19 18:19 10/01/19 20:10 10/02/19 00:38 White Blood Count 9.3 x10^3/uL (4.0-11.0) 8.4 x10^3/uL (4.0-11.0) Red Blood Count 2.78 x10^6/uL (3.50-5.40) 3.04 x10^6/uL (3.50-5.40) Hemoglobin 8.1 g/dL (12.0-15.5) 9.0 g/dL (12.0-15.5) Hematocrit 23.5 % (36.0-47.0) 26.0 % (36.0-47.0) Mean Corpuscular Volume 85 fL (79-100) 86 fL (79-100) Mean Corpuscular Hemoglobin 29 pg (25-35) 30 pg (25-35) Mean Corpuscular Hemoglobin Concent 34 g/dL (31-37) 35 g/dL (31-37) Red Cell Distribution Width 19.1 % (11.5-14.5) 18.7 % (11.5-14.5) Platelet Count 380 x10^3/uL (140-400) 388 x10^3/uL (140-400) Magnesium Level 1.5 mg/dL (1.8-2.4) Glucose (Fingerstick) 220 mg/dL (70-99) 188 mg/dL (70-99) Test 10/02/19 05:30 10/02/19 10:45 10/02/19 12:11 10/02/19 17:52 White Blood Count 7.5 x10^3/uL (4.0-11.0) Red Blood Count 2.95 x10^6/uL (3.50-5.40) Hemoglobin 8.6 g/dL (12.0-15.5) Hematocrit 25.0 % (36.0-47.0) Mean Corpuscular Volume 85 fL (79-100) Mean Corpuscular Hemoglobin 29 pg (25-35) Mean Corpuscular Hemoglobin Concent 34 g/dL (31-37) Red Cell Distribution Width 18.0 % (11.5-14.5) Platelet Count 382 x10^3/uL (140-400) Neutrophils (%) (Auto) 79 % (31-73) Lymphocytes (%) (Auto) 17 % (24-48) Monocytes (%) (Auto) 4 % (0-9) Eosinophils (%) (Auto) 0 % (0-3) Basophils (%) (Auto) 0 % (0-3) Neutrophils # (Auto) 5.9 x10^3/uL (1.8-7.7) Lymphocytes # (Auto) 1.3 x10^3/uL (1.0-4.8) Monocytes # (Auto) 0.3 x10^3/uL (0.0-1.1) Eosinophils # (Auto) 0.0 x10^3/uL (0.0-0.7) Basophils # (Auto) 0.0 x10^3/uL (0.0-0.2) Sodium Level 145 mmol/L (136-145) Potassium Level 3.8 mmol/L (3.5-5.1) Chloride Level 113 mmol/L (98-107) Carbon Dioxide Level 24 mmol/L (21-32) Anion Gap 8 (6-14) Blood Urea Nitrogen 36 mg/dL (7-20) Creatinine 0.8 mg/dL (0.6-1.0) Estimated GFR (Cockcroft-Gault) 76.2 BUN/Creatinine Ratio 45 (6-20) Glucose Level 227 mg/dL (70-99) Calcium Level 9.2 mg/dL (8.5-10.1) Phosphorus Level 3.7 mg/dL (2.6-4.7) Magnesium Level 2.5 mg/dL (1.8-2.4) Total Bilirubin 0.4 mg/dL (0.2-1.0) Aspartate Amino Transf (AST/SGOT) 31 U/L (15-37) Alanine Aminotransferase (ALT/SGPT) 29 U/L (14-59) Alkaline Phosphatase 82 U/L (46-116) Total Protein 4.6 g/dL (6.4-8.2) Albumin 1.0 g/dL (3.4-5.0) Albumin/Globulin Ratio 0.3 (1.0-1.7) O2 Saturation 98 % (92-99) Arterial Blood pH 7.45 (7.35-7.45) Arterial Blood pCO2 at Patient Temp 34 mmHg (35-46) Arterial Blood pO2 at Patient Temp 146 mmHg (75-108) Arterial Blood HCO3 23 mmol/L (21-28) Arterial Blood Base Excess -1 mmol/L (-3-3) FiO2 40 Glucose (Fingerstick) 159 mg/dL (70-99) 129 mg/dL (70-99) Test 10/03/19 00:23 10/03/19 05:45 10/03/19 05:54 10/03/19 08:10 Glucose (Fingerstick) 118 mg/dL (70-99) 115 mg/dL (70-99) White Blood Count 8.1 x10^3/uL (4.0-11.0) Red Blood Count 3.28 x10^6/uL (3.50-5.40) Hemoglobin 9.3 g/dL (12.0-15.5) Hematocrit 27.8 % (36.0-47.0) Mean Corpuscular Volume 85 fL (79-100) Mean Corpuscular Hemoglobin 28 pg (25-35) Mean Corpuscular Hemoglobin Concent 34 g/dL (31-37) Red Cell Distribution Width 18.6 % (11.5-14.5) Platelet Count 434 x10^3/uL (140-400) Neutrophils (%) (Auto) 80 % (31-73) Lymphocytes (%) (Auto) 15 % (24-48) Monocytes (%) (Auto) 5 % (0-9) Eosinophils (%) (Auto) 1 % (0-3) Basophils (%) (Auto) 0 % (0-3) Neutrophils # (Auto) 6.4 x10^3/uL (1.8-7.7) Lymphocytes # (Auto) 1.2 x10^3/uL (1.0-4.8) Monocytes # (Auto) 0.4 x10^3/uL (0.0-1.1) Eosinophils # (Auto) 0.1 x10^3/uL (0.0-0.7) Basophils # (Auto) 0.0 x10^3/uL (0.0-0.2) Sodium Level 143 mmol/L (136-145) Potassium Level 3.3 mmol/L (3.5-5.1) Chloride Level 111 mmol/L (98-107) Carbon Dioxide Level 23 mmol/L (21-32) Anion Gap 9 (6-14) Blood Urea Nitrogen 34 mg/dL (7-20) Creatinine 0.7 mg/dL (0.6-1.0) Estimated GFR (Cockcroft-Gault) 88.9 BUN/Creatinine Ratio 49 (6-20) Glucose Level 125 mg/dL (70-99) Calcium Level 8.8 mg/dL (8.5-10.1) Magnesium Level 1.8 mg/dL (1.8-2.4) Total Bilirubin 0.5 mg/dL (0.2-1.0) Aspartate Amino Transf (AST/SGOT) 62 U/L (15-37) Alanine Aminotransferase (ALT/SGPT) 72 U/L (14-59) Alkaline Phosphatase 132 U/L (46-116) Total Protein 4.5 g/dL (6.4-8.2) Albumin 1.1 g/dL (3.4-5.0) Albumin/Globulin Ratio 0.3 (1.0-1.7) O2 Saturation 97 % (92-99) Arterial Blood pH 7.46 (7.35-7.45) Arterial Blood pCO2 at Patient Temp 31 mmHg (35-46) Arterial Blood pO2 at Patient Temp 117 mmHg (75-108) Arterial Blood HCO3 22 mmol/L (21-28) Arterial Blood Base Excess -2 mmol/L (-3-3) FiO2 35 Laboratory Tests Test 10/02/19 12:11 10/02/19 17:52 10/03/19 00:23 10/03/19 05:45 Glucose (Fingerstick) 159 mg/dL (70-99) 129 mg/dL (70-99) 118 mg/dL (70-99) White Blood Count 8.1 x10^3/uL (4.0-11.0) Red Blood Count 3.28 x10^6/uL (3.50-5.40) Hemoglobin 9.3 g/dL (12.0-15.5) Hematocrit 27.8 % (36.0-47.0) Mean Corpuscular Volume 85 fL (79-100) Mean Corpuscular Hemoglobin 28 pg (25-35) Mean Corpuscular Hemoglobin Concent 34 g/dL (31-37) Red Cell Distribution Width 18.6 % (11.5-14.5) Platelet Count 434 x10^3/uL (140-400) Neutrophils (%) (Auto) 80 % (31-73) Lymphocytes (%) (Auto) 15 % (24-48) Monocytes (%) (Auto) 5 % (0-9) Eosinophils (%) (Auto) 1 % (0-3) Basophils (%) (Auto) 0 % (0-3) Neutrophils # (Auto) 6.4 x10^3/uL (1.8-7.7) Lymphocytes # (Auto) 1.2 x10^3/uL (1.0-4.8) Monocytes # (Auto) 0.4 x10^3/uL (0.0-1.1) Eosinophils # (Auto) 0.1 x10^3/uL (0.0-0.7) Basophils # (Auto) 0.0 x10^3/uL (0.0-0.2) Sodium Level 143 mmol/L (136-145) Potassium Level 3.3 mmol/L (3.5-5.1) Chloride Level 111 mmol/L (98-107) Carbon Dioxide Level 23 mmol/L (21-32) Anion Gap 9 (6-14) Blood Urea Nitrogen 34 mg/dL (7-20) Creatinine 0.7 mg/dL (0.6-1.0) Estimated GFR (Cockcroft-Gault) 88.9 BUN/Creatinine Ratio 49 (6-20) Glucose Level 125 mg/dL (70-99) Calcium Level 8.8 mg/dL (8.5-10.1) Magnesium Level 1.8 mg/dL (1.8-2.4) Total Bilirubin 0.5 mg/dL (0.2-1.0) Aspartate Amino Transf (AST/SGOT) 62 U/L (15-37) Alanine Aminotransferase (ALT/SGPT) 72 U/L (14-59) Alkaline Phosphatase 132 U/L (46-116) Total Protein 4.5 g/dL (6.4-8.2) Albumin 1.1 g/dL (3.4-5.0) Albumin/Globulin Ratio 0.3 (1.0-1.7) Test 10/03/19 05:54 10/03/19 08:10 Glucose (Fingerstick) 115 mg/dL (70-99) O2 Saturation 97 % (92-99) Arterial Blood pH 7.46 (7.35-7.45) Arterial Blood pCO2 at Patient Temp 31 mmHg (35-46) Arterial Blood pO2 at Patient Temp 117 mmHg (75-108) Arterial Blood HCO3 22 mmol/L (21-28) Arterial Blood Base Excess -2 mmol/L (-3-3) FiO2 35 Problem List Problems Medical Problems: (1) Acute pancreatitis Status: Acute (2) Cholelithiasis Status: Acute Assessment/Plan CT reviewed--will have IR eval if drains still in good position,? with decreased output Justicifation of Admission Dx: Justifications for Admission: Justification of Admission Dx: Yes MARV WYNNE MD 10/03/19 1338: SURGICAL PROGRESS NOTE Assessment/Plan as above no new surgical recs 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 APRN Oct 03, 2019 11:29 MARV WYNNE MD Oct 03, 2019 13:38
--- NOTE | 2019-10-03 11:52 | NUR ---
CT results given to Dr. Hamilton and Dr. Elam, IR was consulted for a thoracentesis with possible chest tube placement. Notified CANDICE Morrell of slowing KAYLIN drainage despite fluid on CT, was asked to ask IR physician to look at the KAYLIN drains to see if positioning needs adjusted or if TPA is required. Notified BART Guevara, who will ask the IR physician to look at the CT. Consent was given by adriana Zheng, via telephone contact with two RN verification. Will continue to monitor.
[2019-10-03] MEDS ORDERED: LIDOCAINE WITH 8.4% SOD BICARB 3 ML DISP.SYRIN. ONE (12:14)
[2019-10-03] MEDS ORDERED: LIDOCAINE WITH 8.4% SOD BICARB 3 ML DISP.SYRIN. IJ ONE (13:00)
[2019-10-03] MEDS: PROPOFOL 100 ML IV PRN (13:10)
--- NOTE | 2019-10-03 13:48 | NUR ---
Patient's Propofol infusion restarted for comfort/sedation during chest tube placement procedure in CT 2. 1mg bolus given at start of procedure and infusion running at 2.4 cc/hour. Patient tolerated procedure and plan of care communicated with Machelle LE in ICU.
[2019-10-03] MEDS: ONDANSETRON PF 4 MG/2 ML VIAL. IV PRN ×2 (13:50→20:12)
--- NOTE | 2019-10-03 14:00 | PDOC ---
PROGRESS NOTES Chief Complaint Chief Complaint A/P: Acute hypoxic Respiratory failure requiring mechanical ventilation (now extubated for several days but still with tracheostomy) Tracheostomy bilateral pleural effusions/pulm edema Sepsis Severe Acute gallstone pancreatitis (not a surgical candidate at this time) with necrosis Acute kidney failure now requiring dialysis Salpingitis Gallstones (Calculus of gallbladder with acute cholecystitis without obstruction) HTN Leukocytosis Hypoxia Uterine fibroid Intractable pain Intractable nausea Covid 19 negative. Acute on chronic anemia EEG: No seizure activityFever - better currently - intermittent could be from underlying pancreatitis blood cults 08/21 - neg so far ? Ileus with vomiting Abd distention - U/S and CT reviewed s/p 0.4 L of opaque, debris-containing ascites was removed 08/23 Acute pancreatitis with persistent necrosis - 08/14 status post KAYLIN drain placement + C paropsilosis. s/p additional drains Anemia - S/p PRBCs Cholelithiasis with thickening of the gallbladder wall. Leucocytosis improving JUANA, hyperkalemia, Metabolic acidosis off dialysis Acute hypoxic resp failure ,bilateral pleural effusion and atelectasis hypocalcemia Prediabetes HTN s/p trach ESRD on HD Hyperglycemia FEN - PPX - SCDs, off lovenox currently FULL CODE Dispo - ICU, critically ill Throacentesis as per beverage sales consultant. History of Present Illness History of Present Illness 09/25: IR placed drain on 09/24. 4u PRBC after Hb drop. Hb 8.8 today. Off Levophed this morning. T-max 100.3. Much more lethargic today. CXR with left sided diffuse infiltrates. 09/26: Tachycardic overnight into the 140s. NGT clamped. On BIPAP currently. Drains with serosanguinous discharge. WBC 8, Tmax 99.6F. 09/27: Seen on trach shield in ICU. Hypertensive and tachycardic. Labs stable. blood stained drainage from drains. Afebrile. 09/28: Seen on trach shield in ICU. She is a bit confused, drowsy, but when sitting up is conversational and confusion somewhat clears. She is asking for more pain medication. Stable drains, still very tachy.Na 147 09/29: Patient vomited overnight. Aspirated. Tried to pull her trach out, she was told she would without her trach, she said "I know, I just want to go home". Hb 7.6. Afebrile, still very tachycardic. 1055ml out of right sided KAYLIN drain 09/30: Overnight hypoxic, on BIPAP. CXR with left sided white out lung. Significant mucous plug suctioned by RT with improvement in her ABG after 2 hours this morning. Not really active, tired, lethargic. 890ml out of drains past 24 hours. On vent. D/w daughter bedside. 10/01: Still on vent overnight with copious pulmonary drainage on suctioning. Labs stable, UOP stable 1L. Drain output still significant with 1505mL. She has shown her phone password [phone] and made it clear she does not want her daughters to access her phone at this time. 6:15: Patient quite frail, she has had such a lengthy hospital stay that she is certainly depressed and as documented 3 days ago is wanting to go home. Most likely patient is also tired of being hospitalized with an end point no where in sight. Reassurance and encouragement provided during my visit. Plans for thoracentesis later in the day 09/23/2019 Patient seen and examined on telemetry floor today This morning I had a couple of discussions with case management The issue is the patient will not wear her trach cap Without that she cannot advance her diet and is currently supposed to be on honey thick liquids I was going to talk to the patient about wearing her trach But when I arrived to the room she was lying on the floor with several nurses and therapist around Apparently she did walk to the end of the meyer then back and then collapsed onto the floor She had a bowel movement when this all happened Appears to be critically ill again Very shaky tremulous anxious has a stare in her eyes We got her back in bed I am extremely concerned about her long-term prognosis again 09/22/2019 Patient seen and examined in the ICU She remains critically ill is is extremely weak Chart reviewed Discussed with RN We decided to try some Prozac as she does seem depressed On IV TPN Still has NG tube 09/21/2019 Patient seen and examined in the ICU She remains critically ill We have been trying to hold off on her Ativan for the past 24 hours She is a little more awake but shaky and agitated and anxious seems depressed Discussed with RN Chart reviewed 09/20/2019 Patient seen and examined in the ICU She is a little more alert today but still quite ill Appears clammy and pale and depressed/anxious Discussed with RN Chart reviewed 09/19/2019 Patient seen and examined in the ICU She appears extremely ill She is tachypneic at 35 respirations per minute and tachycardic at 132 bpm She is extremely encephalopathic and shaky She appears clammy Chart reviewed Discussed with RN Prognosis extremely guarded at best 09/18/2019 Patient still in ICU Resting with no apparent distress Chart reviewed 09/17/2019 Patient seen and examined in the ICU She is wiping her face with a cough Discussed with RN Chart reviewed We hope to get her out of the ICU later today if possible 09/16/2019 Patient seen and examined in the ICU once again She is back on NG suction On IV Zosyn Has IV TPN Sedated with Precedex but anxious still Appears somewhat clammy and pale Chart reviewed Discussed with RN She remains critically ill 09/15/2019 Patient seen and examined in the ICU She has an NG that is clamped we are hoping to start some clear liquids but she looks quite ill She is on IV TPN Meropenem changed to IV Zosyn (agree) She has Lind to bedside drainage She is semi-sedated with Precedex Chart reviewed Discussed with RN She remains critically ill Seen bedside. Hb 8. She was just a bit hypoxic, had a mucous plug suctioned. Able to vocalize well with speaking valve, tells me we are being very hard on her and she would like to be drugged back to sleep. She wants to wake up and feel better. On trach shield, T max 100.4. afebrile this a.m. 09/13/2019 Patient seen and examined in the ICU She is up in the chair very frail trying to talk a little shaky Discussed with RN Chart reviewed 09/12/2019 Patient seen and examined in the ICU Patient up in the chair Having a severe coughing episode with a lot of phlegm coming out of her tracheostomy Discussed with RN Discussed with physical therapy Chart reviewed 09/10,. feels well, has been out of room in wheelchair no complaint, still weak, some with not wanting to wear her valve on trach cont other, may be able to work with speech tomorrow, videoswallow OK to try, 09/09, anxiety is up today, she dislikes the valve still, shower and outside today . 09/08 she doesnt want to wear her passy-fantasma valve, discussed str and plan with her. speech following, needs swallow study, but needs to wear her valve longer, cont current able to walk some, walker 09/07 stronger, better, we discussed better oral care she would like to try swallow study, wants to try to eat, speech is follo wing 09/07/2019 She remains in the ICU sitting up and working with OT, getting better if limit pain meds, may do better off the vent, Nurses trying to suction her, that is also improved, Chart reviewed 09/06/2019 Patient seen and examined in the ICU She had an episode yesterday of tachycardia and severe agitation we gave her some Ativan After that she seemed to have stroke symptoms but now that the Ativan has wore off her stroke symptoms have resolved She is on IV meropenem and daptomycin and micafungin Chart reviewed Discussed with RN Patient is still critically ill BRIEF OPERATIVE NOTE Pre-Op Diagnosis Pancreatitis with pseudocysts, suspected infection Post-Op Diagnosis same Procedure Performed CT abdominal Drains x 3 Surgeon Tesfaye Anesthesia Type: Conscious Sedation Findings 3 abdominal drains, 14F, with turbid pancreatic fluid and necrotic debris in e ach. Complications No immediate 08/26: Patient today somewhat restless and having bilious secretions from ET tube, imaging studies ordered, discussed with beverage sales consultant. Pretty poor prognosis, hopefully is not a fistula, poor surgical candidate. 08/27: Imaging with no acute events, she seems more stable today compared to yesterday. Encouraged as much activity as possible patient at high risk for severe depression. Vitals Vitals Vital Signs Date Time Temp Pulse Resp B/P (MAP) Pulse Ox O2 Delivery O2 Flow Rate FiO2 10/03/19 13:40 121 22 150/86 (107) 97 Tracheal Collar 10/03/19 12:00 99.0 99.0 Physical Exam Physical Exam GENERAL: More Alert and looks better HEENT: NGT in place. Oral mucosa dry NECK: Tracheostomy LUNGS: Diminished aeration bases, no accessory muscle use HEART: S1, S2, tachy, regular ABDOMEN: Mild distention, bowel sounds present, soft, grimaces to palpation Right lateral side drainage bag, 3 drains with bloodstained drainage. Left side with drainage from previous drain site : Lind ( 09/24) EXTREMITIES: Trace edema .no cyanosis SKIN: no signs of gen rash SERVICE DEVELOPER: Lethargic very weak LUE-PICC (09/15) without signs of complications - art line without complications General: Cooperative Heart: Regular rate, Normal S1, Normal S2, No murmurs, Gallops Lungs: Other (diminshed in bases, Rhonci in LLL) Abdomen: Soft, Other (drains in place) Extremities: No clubbing, No cyanosis, No edema, Normal pulses, No tenderness/swelling Skin: Other (warm, dry) Labs LABS Laboratory Tests Test 10/02/19 17:52 10/03/19 00:23 10/03/19 05:45 10/03/19 05:54 Glucose (Fingerstick) 129 mg/dL (70-99) 118 mg/dL (70-99) 115 mg/dL (70-99) White Blood Count 8.1 x10^3/uL (4.0-11.0) Red Blood Count 3.28 x10^6/uL (3.50-5.40) Hemoglobin 9.3 g/dL (12.0-15.5) Hematocrit 27.8 % (36.0-47.0) Mean Corpuscular Volume 85 fL (79-100) Mean Corpuscular Hemoglobin 28 pg (25-35) Mean Corpuscular Hemoglobin Concent 34 g/dL (31-37) Red Cell Distribution Width 18.6 % (11.5-14.5) Platelet Count 434 x10^3/uL (140-400) Neutrophils (%) (Auto) 80 % (31-73) Lymphocytes (%) (Auto) 15 % (24-48) Monocytes (%) (Auto) 5 % (0-9) Eosinophils (%) (Auto) 1 % (0-3) Basophils (%) (Auto) 0 % (0-3) Neutrophils # (Auto) 6.4 x10^3/uL (1.8-7.7) Lymphocytes # (Auto) 1.2 x10^3/uL (1.0-4.8) Monocytes # (Auto) 0.4 x10^3/uL (0.0-1.1) Eosinophils # (Auto) 0.1 x10^3/uL (0.0-0.7) Basophils # (Auto) 0.0 x10^3/uL (0.0-0.2) Sodium Level 143 mmol/L (136-145) Potassium Level 3.3 mmol/L (3.5-5.1) Chloride Level 111 mmol/L (98-107) Carbon Dioxide Level 23 mmol/L (21-32) Anion Gap 9 (6-14) Blood Urea Nitrogen 34 mg/dL (7-20) Creatinine 0.7 mg/dL (0.6-1.0) Estimated GFR (Cockcroft-Gault) 88.9 BUN/Creatinine Ratio 49 (6-20) Glucose Level 125 mg/dL (70-99) Calcium Level 8.8 mg/dL (8.5-10.1) Magnesium Level 1.8 mg/dL (1.8-2.4) Total Bilirubin 0.5 mg/dL (0.2-1.0) Aspartate Amino Transf (AST/SGOT) 62 U/L (15-37) Alanine Aminotransferase (ALT/SGPT) 72 U/L (14-59) Alkaline Phosphatase 132 U/L (46-116) Total Protein 4.5 g/dL (6.4-8.2) Albumin 1.1 g/dL (3.4-5.0) Albumin/Globulin Ratio 0.3 (1.0-1.7) Test 10/03/19 08:10 10/03/19 11:47 O2 Saturation 97 % (92-99) Arterial Blood pH 7.46 (7.35-7.45) Arterial Blood pCO2 at Patient Temp 31 mmHg (35-46) Arterial Blood pO2 at Patient Temp 117 mmHg (75-108) Arterial Blood HCO3 22 mmol/L (21-28) Arterial Blood Base Excess -2 mmol/L (-3-3) FiO2 35 Glucose (Fingerstick) 121 mg/dL (70-99) Assessment and Plan Assessmemt and Plan Problems Medical Problems: (1) Acute pancreatitis Status: Acute (2) Cholelithiasis Status: Acute Comment Review of Relevant I have reviewed the following items kolby (where applicable) has been applied. Labs Laboratory Tests Test 10/01/19 15:08 10/01/19 18:19 10/01/19 20:10 10/02/19 00:38 White Blood Count 9.3 x10^3/uL (4.0-11.0) 8.4 x10^3/uL (4.0-11.0) Red Blood Count 2.78 x10^6/uL (3.50-5.40) 3.04 x10^6/uL (3.50-5.40) Hemoglobin 8.1 g/dL (12.0-15.5) 9.0 g/dL (12.0-15.5) Hematocrit 23.5 % (36.0-47.0) 26.0 % (36.0-47.0) Mean Corpuscular Volume 85 fL (79-100) 86 fL (79-100) Mean Corpuscular Hemoglobin 29 pg (25-35) 30 pg (25-35) Mean Corpuscular Hemoglobin Concent 34 g/dL (31-37) 35 g/dL (31-37) Red Cell Distribution Width 19.1 % (11.5-14.5) 18.7 % (11.5-14.5) Platelet Count 380 x10^3/uL (140-400) 388 x10^3/uL (140-400) Magnesium Level 1.5 mg/dL (1.8-2.4) Glucose (Fingerstick) 220 mg/dL (70-99) 188 mg/dL (70-99) Test 10/02/19 05:30 10/02/19 10:45 10/02/19 12:11 10/02/19 17:52 White Blood Count 7.5 x10^3/uL (4.0-11.0) Red Blood Count 2.95 x10^6/uL (3.50-5.40) Hemoglobin 8.6 g/dL (12.0-15.5) Hematocrit 25.0 % (36.0-47.0) Mean Corpuscular Volume 85 fL (79-100) Mean Corpuscular Hemoglobin 29 pg (25-35) Mean Corpuscular Hemoglobin Concent 34 g/dL (31-37) Red Cell Distribution Width 18.0 % (11.5-14.5) Platelet Count 382 x10^3/uL (140-400) Neutrophils (%) (Auto) 79 % (31-73) Lymphocytes (%) (Auto) 17 % (24-48) Monocytes (%) (Auto) 4 % (0-9) Eosinophils (%) (Auto) 0 % (0-3) Basophils (%) (Auto) 0 % (0-3) Neutrophils # (Auto) 5.9 x10^3/uL (1.8-7.7) Lymphocytes # (Auto) 1.3 x10^3/uL (1.0-4.8) Monocytes # (Auto) 0.3 x10^3/uL (0.0-1.1) Eosinophils # (Auto) 0.0 x10^3/uL (0.0-0.7) Basophils # (Auto) 0.0 x10^3/uL (0.0-0.2) Sodium Level 145 mmol/L (136-145) Potassium Level 3.8 mmol/L (3.5-5.1) Chloride Level 113 mmol/L (98-107) Carbon Dioxide Level 24 mmol/L (21-32) Anion Gap 8 (6-14) Blood Urea Nitrogen 36 mg/dL (7-20) Creatinine 0.8 mg/dL (0.6-1.0) Estimated GFR (Cockcroft-Gault) 76.2 BUN/Creatinine Ratio 45 (6-20) Glucose Level 227 mg/dL (70-99) Calcium Level 9.2 mg/dL (8.5-10.1) Phosphorus Level 3.7 mg/dL (2.6-4.7) Magnesium Level 2.5 mg/dL (1.8-2.4) Total Bilirubin 0.4 mg/dL (0.2-1.0) Aspartate Amino Transf (AST/SGOT) 31 U/L (15-37) Alanine Aminotransferase (ALT/SGPT) 29 U/L (14-59) Alkaline Phosphatase 82 U/L (46-116) Total Protein 4.6 g/dL (6.4-8.2) Albumin 1.0 g/dL (3.4-5.0) Albumin/Globulin Ratio 0.3 (1.0-1.7) O2 Saturation 98 % (92-99) Arterial Blood pH 7.45 (7.35-7.45) Arterial Blood pCO2 at Patient Temp 34 mmHg (35-46) Arterial Blood pO2 at Patient Temp 146 mmHg (75-108) Arterial Blood HCO3 23 mmol/L (21-28) Arterial Blood Base Excess -1 mmol/L (-3-3) FiO2 40 Glucose (Fingerstick) 159 mg/dL (70-99) 129 mg/dL (70-99) Test 10/03/19 00:23 10/03/19 05:45 10/03/19 05:54 10/03/19 08:10 Glucose (Fingerstick) 118 mg/dL (70-99) 115 mg/dL (70-99) White Blood Count 8.1 x10^3/uL (4.0-11.0) Red Blood Count 3.28 x10^6/uL (3.50-5.40) Hemoglobin 9.3 g/dL (12.0-15.5) Hematocrit 27.8 % (36.0-47.0) Mean Corpuscular Volume 85 fL (79-100) Mean Corpuscular Hemoglobin 28 pg (25-35) Mean Corpuscular Hemoglobin Concent 34 g/dL (31-37) Red Cell Distribution Width 18.6 % (11.5-14.5) Platelet Count 434 x10^3/uL (140-400) Neutrophils (%) (Auto) 80 % (31-73) Lymphocytes (%) (Auto) 15 % (24-48) Monocytes (%) (Auto) 5 % (0-9) Eosinophils (%) (Auto) 1 % (0-3) Basophils (%) (Auto) 0 % (0-3) Neutrophils # (Auto) 6.4 x10^3/uL (1.8-7.7) Lymphocytes # (Auto) 1.2 x10^3/uL (1.0-4.8) Monocytes # (Auto) 0.4 x10^3/uL (0.0-1.1) Eosinophils # (Auto) 0.1 x10^3/uL (0.0-0.7) Basophils # (Auto) 0.0 x10^3/uL (0.0-0.2) Sodium Level 143 mmol/L (136-145) Potassium Level 3.3 mmol/L (3.5-5.1) Chloride Level 111 mmol/L (98-107) Carbon Dioxide Level 23 mmol/L (21-32) Anion Gap 9 (6-14) Blood Urea Nitrogen 34 mg/dL (7-20) Creatinine 0.7 mg/dL (0.6-1.0) Estimated GFR (Cockcroft-Gault) 88.9 BUN/Creatinine Ratio 49 (6-20) Glucose Level 125 mg/dL (70-99) Calcium Level 8.8 mg/dL (8.5-10.1) Magnesium Level 1.8 mg/dL (1.8-2.4) Total Bilirubin 0.5 mg/dL (0.2-1.0) Aspartate Amino Transf (AST/SGOT) 62 U/L (15-37) Alanine Aminotransferase (ALT/SGPT) 72 U/L (14-59) Alkaline Phosphatase 132 U/L (46-116) Total Protein 4.5 g/dL (6.4-8.2) Albumin 1.1 g/dL (3.4-5.0) Albumin/Globulin Ratio 0.3 (1.0-1.7) O2 Saturation 97 % (92-99) Arterial Blood pH 7.46 (7.35-7.45) Arterial Blood pCO2 at Patient Temp 31 mmHg (35-46) Arterial Blood pO2 at Patient Temp 117 mmHg (75-108) Arterial Blood HCO3 22 mmol/L (21-28) Arterial Blood Base Excess -2 mmol/L (-3-3) FiO2 35 Test 10/03/19 11:47 Glucose (Fingerstick) 121 mg/dL (70-99) Laboratory Tests Test 10/02/19 17:52 10/03/19 00:23 10/03/19 05:45 10/03/19 05:54 Glucose (Fingerstick) 129 mg/dL (70-99) 118 mg/dL (70-99) 115 mg/dL (70-99) White Blood Count 8.1 x10^3/uL (4.0-11.0) Red Blood Count 3.28 x10^6/uL (3.50-5.40) Hemoglobin 9.3 g/dL (12.0-15.5) Hematocrit 27.8 % (36.0-47.0) Mean Corpuscular Volume 85 fL (79-100) Mean Corpuscular Hemoglobin 28 pg (25-35) Mean Corpuscular Hemoglobin Concent 34 g/dL (31-37) Red Cell Distribution Width 18.6 % (11.5-14.5) Platelet Count 434 x10^3/uL (140-400) Neutrophils (%) (Auto) 80 % (31-73) Lymphocytes (%) (Auto) 15 % (24-48) Monocytes (%) (Auto) 5 % (0-9) Eosinophils (%) (Auto) 1 % (0-3) Basophils (%) (Auto) 0 % (0-3) Neutrophils # (Auto) 6.4 x10^3/uL (1.8-7.7) Lymphocytes # (Auto) 1.2 x10^3/uL (1.0-4.8) Monocytes # (Auto) 0.4 x10^3/uL (0.0-1.1) Eosinophils # (Auto) 0.1 x10^3/uL (0.0-0.7) Basophils # (Auto) 0.0 x10^3/uL (0.0-0.2) Sodium Level 143 mmol/L (136-145) Potassium Level 3.3 mmol/L (3.5-5.1) Chloride Level 111 mmol/L (98-107) Carbon Dioxide Level 23 mmol/L (21-32) Anion Gap 9 (6-14) Blood Urea Nitrogen 34 mg/dL (7-20) Creatinine 0.7 mg/dL (0.6-1.0) Estimated GFR (Cockcroft-Gault) 88.9 BUN/Creatinine Ratio 49 (6-20) Glucose Level 125 mg/dL (70-99) Calcium Level 8.8 mg/dL (8.5-10.1) Magnesium Level 1.8 mg/dL (1.8-2.4) Total Bilirubin 0.5 mg/dL (0.2-1.0) Aspartate Amino Transf (AST/SGOT) 62 U/L (15-37) Alanine Aminotransferase (ALT/SGPT) 72 U/L (14-59) Alkaline Phosphatase 132 U/L (46-116) Total Protein 4.5 g/dL (6.4-8.2) Albumin 1.1 g/dL (3.4-5.0) Albumin/Globulin Ratio 0.3 (1.0-1.7) Test 10/03/19 08:10 10/03/19 11:47 O2 Saturation 97 % (92-99) Arterial Blood pH 7.46 (7.35-7.45) Arterial Blood pCO2 at Patient Temp 31 mmHg (35-46) Arterial Blood pO2 at Patient Temp 117 mmHg (75-108) Arterial Blood HCO3 22 mmol/L (21-28) Arterial Blood Base Excess -2 mmol/L (-3-3) FiO2 35 Glucose (Fingerstick) 121 mg/dL (70-99) Microbiology 10/01/19 Gram Stain Evaluation - Final, Resulted 10/01/19 Respiratory Culture - Preliminary, Resulted 09/25/19 Gram Stain - Final, Complete 09/25/19 Aerobic and Anaerobic Culture - Final, Complete 09/25/19 Antimicrobic Susceptibility - Final, Complete 09/25/19 Blood Culture - Final, Complete NO GROWTH AFTER 5 DAYS 09/25/19 Urine Culture - Final, Complete 09/17/19 Gram Stain - Final, Complete 09/17/19 Aerobic Culture - Final, Complete Medications Current Medications Sodium Chloride 1,000 ml @ 1,000 mls/hr Q1H IV Last administered on 07/04/19at 03:00; Start 07/04/19 at 03:00; Stop 07/04/19 at 03:59; Status DC Ondansetron HCl (Zofran) 4 mg 1X ONCE IVP Last administered on 07/04/19at 03:27 ; Start 07/04/19 at 03:00; Stop 07/04/19 at 03:01; Status DC Morphine Sulfate (Morphine Sulfate) 4 mg 1X ONCE IV ; Start 07/04/19 at 03:00; Stop 07/04/19 at 03:01; Status Cancel Ketorolac Tromethamine (Toradol 30mg Vial) 30 mg 1X ONCE IV Last administered on 07/04/19at 02:54; Start 07/04/19 at 03:00; Stop 07/04/19 at 03:01; Status DC Fentanyl Citrate (Fentanyl 2ml Vial) 25 mcg 1X ONCE IVP Last administered on 07/04/19at 03:23; Start 07/04/19 at 03:30; Stop 07/04/19 at 03:31; Status DC Fentanyl Citrate (Fentanyl 2ml Vial) 100 mcg STK-MED ONCE .ROUTE ; Start 07/04/19 at 03:18; Stop 07/04/19 at 03:18; Status DC Iohexol (Omnipaque 350 Mg/ml) 90 ml 1X ONCE IV Last administered on 07/04/19at 03:25; Start 07/04/19 at 03:30; Stop 07/04/19 at 03:31; Status DC Info (CONTRAST GIVEN -- Rx MONITORING) 1 each PRN DAILY PRN MC SEE COMMENTS; Start 07/04/19 at 03:30; Stop 07/06/19 at 03:29; Status DC Hydromorphone HCl (Dilaudid) 0.5 mg 1X ONCE IV Last administered on 07/04/19at 03:55; Start 07/04/19 at 04:30; Stop 07/04/19 at 04:32; Status DC Ondansetron HCl (Zofran) 4 mg PRN Q8HRS PRN IV NAUSEA/VOMITING 1ST CHOICE; Start 07/04/19 at 05:00; Stop 07/04/19 at 09:27; Status DC Morphine Sulfate (Morphine Sulfate) 2 mg PRN Q2HR PRN IV SEVERE PAIN 7-10 Last administered on 07/05/19at 12:26; Start 07/04/19 at 05:00; Stop 07/05/19 at 14:15; Status DC Sodium Chloride 1,000 ml @ 125 mls/hr Q8H IV Last administered on 07/04/19at 20:56; Start 07/04/19 at 05:00; Stop 07/05/19 at 04:59; Status DC Hydromorphone HCl (Dilaudid) 0.5 mg PRN Q3HRS PRN IV SEVERE PAIN 7-10 Last administered on 07/05/19at 10:06; Start 07/04/19 at 05:00; Stop 07/05/19 at 12: 01; Status DC Piperacillin Sod/ Tazobactam Sod 4.5 gm/Sodium Chloride 100 ml @ 200 mls/hr 1X ONCE IV Last administered on 07/04/19at 05:44; Start 07/04/19 at 06:00; Stop 07/04/19 at 06:29; Status DC Ondansetron HCl (Zofran) 4 mg PRN Q4HRS PRN IV NAUSEA/VOMITING 1ST CHOICE Last administered on 10/03/19at 13:50; Start 07/04/19 at 09:30 Insulin Human Lispro (HumaLOG) 0-9 UNITS Q6HRS SQ Last administered on 10/02/19at 12:21; Start 07/04/19 at 09:30 Dextrose (Dextrose 50%-Water Syringe) 12.5 gm PRN Q15MIN PRN IV SEE COMMENTS; Start 07/04/19 at 09:30 Pantoprazole Sodium (PROTONIX VIAL for IV PUSH) 40 mg DAILYAC IVP Last administered on 10/03/19at 08:31; Start 07/04/19 at 11:30 Prochlorperazine Edisylate (Compazine) 10 mg PRN Q6HRS PRN IV NAUSEA/VOMITING, 2nd CHOICE Last administered on 09/28/19at 14:33; Start 07/04/19 at 17:45 Atenolol (Tenormin) 100 mg DAILY PO ; Start 07/05/19 at 09:00; Stop 07/04/19 at 20:08; Status DC Metoprolol Tartrate (Lopressor Vial) 2.5 mg Q6HRS IVP Last administered on 07/05/19at 05:51; Start 07/04/19 at 20:15; Stop 07/05/19 at 10:02; Status DC Metoprolol Tartrate (Lopressor Vial) 5 mg Q6HRS IVP Last administered on 07/14/19at 00:12; Start 07/05/19 at 10:15; Stop 07/16/19 at 08:48; Status DC Hydromorphone HCl (Dilaudid) 1 mg PRN Q3HRS PRN IV SEVERE PAIN 7-10 Last administered on 07/11/19at 05:13; Start 07/05/19 at 12:00; Stop 07/19/19 at 00:25; Status DC Lidocaine HCl (Buffered Lidocaine 1%) 3 ml STK-MED ONCE .ROUTE ; Start 07/05/19 at 12:55; Stop 07/05/19 at 12:56; Status DC Albumin Human 500 ml @ 125 mls/hr 1X ONCE IV Last administered on 07/05/19at 14:33; Start 07/05/19 at 14:30; Stop 07/05/19 at 18:32; Status DC Norepinephrine Bitartrate 8 mg/ Dextrose 258 ml @ 17.299 mls/ hr CONT PRN IV PER PROTOCOL Last administered on 08/02/19at 12:48; Start 07/05/19 at 15:30; Stop 08/05/19 at 09:19; Status DC Sodium Chloride 1,000 ml @ 125 mls/hr Q8H IV Last administered on 07/05/19at 21:04; Start 07/05/19 at 16:00; Stop 07/06/19 at 02:42; Status DC Albumin Human 500 ml @ 125 mls/hr PRN BID PRN IV After every 2L NSS & BP < 90mm Last administered on 09/24/19at 11:40; Start 07/05/19 at 16:00 Iohexol (Omnipaque 300 Mg/ml) 60 ml 1X ONCE IV Last administered on 07/05/19at 17:20; Start 07/05/19 at 17:00; Stop 07/05/19 at 17:01; Status DC Info (CONTRAST GIVEN -- Rx MONITORING) 1 each PRN DAILY PRN MC SEE COMMENTS; Start 07/05/19 at 17:00; Stop 07/07/19 at 16:59; Status DC Meropenem 1 gm/ Sodium Chloride 100 ml @ 200 mls/hr Q8HRS IV Last administered on 07/06/19at 05:45; Start 07/05/19 at 20:00; Stop 07/06/19 at 08:48; Status DC Furosemide (Lasix) 40 mg 1X ONCE IVP Last administered on 07/05/19at 22:12; Start 07/05/19 at 22:30; Stop 07/05/19 at 22:31; Status DC Calcium Chloride 1000 mg/Sodium Chloride 110 ml @ 220 mls/hr 1X ONCE IV Last administered on 07/05/19at 22:11; Start 07/05/19 at 22:30; Stop 07/05/19 at 22:59; Status DC Albuterol Sulfate (Ventolin Neb Soln) 2.5 mg 1X ONCE NEB Last administered on 07/06/19at 00:56; Start 07/05/19 at 22:30; Stop 07/05/19 at 22:31; Status DC Insulin Human Regular (HumuLIN R VIAL) 5 unit 1X ONCE IV Last administered on 07/05/19at 22:14; Start 07/05/19 at 22:30; Stop 07/05/19 at 22:31; Status DC Magnesium Sulfate 50 ml @ 25 mls/hr 1X ONCE IV Last administered on 07/06/19at 02:57; Start 07/06/19 at 03:00; Stop 07/06/19 at 04:59; Status DC Calcium Gluconate 1000 mg/Sodium Chloride 110 ml @ 220 mls/hr 1X ONCE IV Last administered on 07/06/19at 02:46; Start 07/06/19 at 03:00; Stop 07/06/19 at 03:29; Status DC Sodium Chloride 1,000 ml @ 200 mls/hr Q5H IV Last administered on 07/06/19at 02:46; Start 07/06/19 at 03:00; Stop 07/06/19 at 10:21; Status DC Calcium Gluconate 1000 mg/Sodium Chloride 110 ml @ 220 mls/hr 1X ONCE IV Last administered on 07/06/19at 03:21; Start 07/06/19 at 03:30; Stop 07/06/19 at 03:59; Status DC Sodium Bicarbonate 50 meq/Sodium Chloride 1,050 ml @ 75 mls/hr Q14H IV Last administered on 07/10/19at 21:10; Start 07/06/19 at 07:30; Stop 07/11/19 at 10:28; Status DC Calcium Gluconate 2000 mg/Sodium Chloride 120 ml @ 220 mls/hr 1X ONCE IV Last administered on 07/06/19at 09:05; Start 07/06/19 at 07:30; Stop 07/06/19 at 08:02; Status DC Lidocaine HCl (Xylocaine-Mpf 1% 2ml Vial) 2 ml STK-MED ONCE .ROUTE ; Start 07/06/19 at 08:47; Stop 07/06/19 at 08:47; Status DC Meropenem 500 mg/ Sodium Chloride 50 ml @ 100 mls/hr Q12HR IV Last administered on 07/11/19at 21:01; Start 07/06/19 at 18:00; Stop 07/12/19 at 07:58; Status DC Lidocaine HCl (Buffered Lidocaine 1%) 3 ml STK-MED ONCE .ROUTE ; Start 07/06/19 at 09:46; Stop 07/06/19 at 09:46; Status DC Lidocaine HCl (Buffered Lidocaine 1%) 6 ml 1X ONCE INJ Last administered on 07/06/19at 10:26; Start 07/06/19 at 10:15; Stop 07/06/19 at 10:16; Status DC Info (Tpn Per Pharmacy) 1 each PRN DAILY PRN MC SEE COMMENTS Last administered on 10/03/19at 09:51; Start 07/06/19 at 12:00 Sodium Chloride 1,000 ml @ 1,000 mls/hr Q1H PRN IV hypotension; Start 07/06/19 at 12:07; Stop 07/06/19 at 18:06; Status DC Diphenhydramine HCl (Benadryl) 25 mg 1X PRN PRN IV ITCHING; Start 07/06/19 at 12:15; Stop 07/07/19 at 12:14; Status DC Diphenhydramine HCl (Benadryl) 25 mg 1X PRN PRN IV ITCHING; Start 07/06/19 at 12:15; Stop 07/07/19 at 12:14; Status DC Sodium Chloride 1,000 ml @ 400 mls/hr Q2H30M PRN IV PATENCY; Start 07/06/19 at 12:07; Stop 07/07/19 at 00:06; Status DC Info (PHARMACY MONITORING -- do not chart) 1 each PRN DAILY PRN MC SEE COMMENTS; Start 07/06/19 at 12:15; Stop 07/08/19 at 08:13; Status DC Sodium Chloride 90 meq/Calcium Gluconate 10 meq/ Multivitamins 10 ml/Chromium/ Copper/Manganese/ Seleni/Zn 1 ml/ Total Parenteral Nutrition/Amino Acids/Dextrose/ Fat Emulsion Intravenous 55.005 ml @ 2.292 mls/hr TPN CONT IV ; Start 07/06/19 at 22:00; Stop 07/06/19 at 12:33; Status DC Info (Tpn Per Pharmacy) 1 each PRN DAILY PRN MC SEE COMMENTS; Start 07/06/19 at 12:30; Status UNV Sodium Chloride 90 meq/Calcium Gluconate 10 meq/ Multivitamins 10 ml/Chromium/ Copper/Manganese/ Seleni/Zn 0.5 ml/ Total Parenteral Nutrition/Amino Acids/Dextrose/ Fat Emulsion Intravenous 1,512 ml @ 63 mls/hr TPN CONT IV Last administered on 07/06/19at 22:06; Start 07/06/19 at 22:00; Stop 07/07/19 at 21:59; Status DC Calcium Carbonate/ Glycine (Tums) 500 mg PRN AFTMEALHC PRN PO INDIGESTION; Start 07/06/19 at 17:45; Stop 08/31/19 at 10:25; Status DC Calcium Gluconate (Calcium Gluconate) 2,000 mg 1X ONCE IVP Last administered on 07/07/19at 02:19; Start 07/07/19 at 02:15; Stop 07/07/19 at 02:16; Status DC Calcium Chloride 3000 mg/Sodium Chloride 1,030 ml @ 50 mls/hr [id number] IV Last administered on 07/09/19at 02:17; Start 07/07/19 at 08:00; Stop 07/09/19 at 15:23; Status DC Lorazepam (Ativan Inj) 1 mg PRN Q4HRS PRN IVP ANXIETY / AGITATION, 2nd choic Last administered on 08/05/19at 03:51; Start 07/07/19 at 09:00; Stop 08/05/19 at 09:19; Status DC Sodium Chloride 1,000 ml @ 1,000 mls/hr Q1H PRN IV hypotension; Start 07/07/19 at 08:56; Stop 07/07/19 at 14:55; Status DC Albumin Human 200 ml @ 200 mls/hr 1X PRN PRN IV Hypotension; Start 07/07/19 at 09:00; Stop 07/07/19 at 14:59; Status DC Diphenhydramine HCl (Benadryl) 25 mg 1X PRN PRN IV ITCHING; Start 07/07/19 at 09:00; Stop 07/08/19 at 08:59; Status DC Diphenhydramine HCl (Benadryl) 25 mg 1X PRN PRN IV ITCHING; Start 07/07/19 at 09:00; Stop 07/08/19 at 08:59; Status DC Sodium Chloride 1,000 ml @ 400 mls/hr Q2H30M PRN IV PATENCY; Start 07/07/19 at 08:56; Stop 07/07/19 at 20:55; Status DC Info (PHARMACY MONITORING -- do not chart) 1 each PRN DAILY PRN MC SEE COMMENTS; Start 07/07/19 at 09:00; Status UNV Info (PHARMACY MONITORING -- do not chart) 1 each PRN DAILY PRN MC SEE COMMENTS; Start 07/07/19 at 09:00; Stop 07/08/19 at 08:13; Status DC Digoxin (Lanoxin) 500 mcg 1X ONCE IV Last administered on 07/07/19at 10:04; Start 07/07/19 at 10:00; Stop 07/07/19 at 10:01; Status DC Digoxin (Lanoxin) 125 mcg 1X ONCE IV Last administered on 07/07/19at 17:10; Start 07/07/19 at 18:00; Stop 07/07/19 at 18:01; Status DC Magnesium Sulfate 100 ml @ 25 mls/hr 1X ONCE IV Last administered on 07/07/19at 12:48; Start 07/07/19 at 13:00; Stop 07/07/19 at 16:59; Status DC Sodium Chloride 90 meq/Magnesium Sulfate 10 meq/ Calcium Gluconate 20 meq/ Multivitamins 10 ml/Chromium/ Copper/Manganese/ Seleni/Zn 0.5 ml/ Total Parenteral Nutrition/Amino Acids/Dextrose/ Fat Emulsion Intravenous 1,512 ml @ 63 mls/hr TPN CONT IV Last administered on 07/07/19at 22:25; Start 07/07/19 at 22:00; Stop 07/08/19 at 21:59; Status DC Sodium Chloride 1,000 ml @ 1,000 mls/hr Q1H PRN IV hypotension; Start 07/08/19 at 08:05; Stop 07/08/19 at 14:04; Status DC Albumin Human 200 ml @ 200 mls/hr 1X ONCE IV Last administered on 07/08/19at 08:57; Start 07/08/19 at 08:15; Stop 07/08/19 at 09:14; Status DC Diphenhydramine HCl (Benadryl) 25 mg 1X PRN PRN IV ITCHING; Start 07/08/19 at 08:15; Stop 07/09/19 at 08:14; Status DC Diphenhydramine HCl (Benadryl) 25 mg 1X PRN PRN IV ITCHING; Start 07/08/19 at 08:15; Stop 07/09/19 at 08:14; Status DC Sodium Chloride 1,000 ml @ 400 mls/hr Q2H30M PRN IV PATENCY; Start 07/08/19 at 08:05; Stop 07/08/19 at 20:04; Status DC Info (PHARMACY MONITORING -- do not chart) 1 each PRN DAILY PRN MC SEE COMMENTS; Start 07/08/19 at 08:15; Stop 07/12/19 at 07:57; Status DC Sodium Chloride 90 meq/Potassium Chloride 15 meq/ Potassium Phosphate 10 mmol/ Magnesium Sulfate 10 meq/Calcium Gluconate 20 meq/ Multivitamins 10 ml/Chromium/ Copper/Manganese/ Seleni/Zn 0.5 ml/ Total Parenteral Nutrition/Amino Acids/Dextrose/ Fat Emulsion Intravenous 1,512 ml @ 63 mls/hr TPN CONT IV Last administered on 07/08/19at 21:01; Start 07/08/19 at 22:00; Stop 07/09/19 at 21:59; Status DC Potassium Chloride/Water 100 ml @ 100 mls/hr 1X ONCE IV Last administered on 07/08/19at 14:09; Start 07/08/19 at 14:00; Stop 07/08/19 at 14:59; Status DC Benzocaine (Hurricaine One) 1 spray 1X ONCE MM Last administered on 07/08/19at 16:38; Start 07/08/19 at 14:30; Stop 07/08/19 at 14:31; Status DC Lidocaine HCl (Glydo (Lidocaine) Jelly) 1 ramu 1X ONCE MM Last administered on 07/08/19at 16:38; Start 07/08/19 at 14:30; Stop 07/08/19 at 14:31; Status DC Linezolid/Dextrose 300 ml @ 300 mls/hr Q12HR IV Last administered on 07/14/19at 21:04; Start 07/08/19 at 20:00; Stop 07/15/19 at 07:50; Status DC Acetaminophen (Tylenol) 650 mg PRN Q6HRS PRN PO MILD PAIN / TEMP; Start 07/09/19 at 03:30; Stop 07/09/19 at 03:36; Status DC Acetaminophen (Tylenol) 650 mg PRN Q6HRS PRN PEG MILD PAIN / TEMP Last administered on 08/04/19at 19:56; Start 07/09/19 at 03:36; Stop 08/31/19 at 10:25; Status DC Sodium Chloride 1,000 ml @ 1,000 mls/hr Q1H PRN IV hypotension; Start 07/09/19 at 07:50; Stop 07/09/19 at 13:49; Status DC Albumin Human 200 ml @ 200 mls/hr 1X PRN PRN IV Hypotension; Start 07/09/19 at 08:00; Stop 07/09/19 at 13:59; Status DC Sodium Chloride (Normal Saline Flush) 10 ml 1X PRN PRN IV AP catheter pack; Start 07/09/19 at 08:00; Stop 07/10/19 at 07:59; Status DC Sodium Chloride (Normal Saline Flush) 10 ml 1X PRN PRN IV ADMINISTRATIVE PROJECT COORDINATOR catheter pack; Start 07/09/19 at 08:00; Stop 07/10/19 at 07:59; Status DC Sodium Chloride 1,000 ml @ 400 mls/hr Q2H30M PRN IV PATENCY; Start 07/09/19 at 07:50; Stop 07/09/19 at 19:49; Status DC Info (PHARMACY MONITORING -- do not chart) 1 each PRN DAILY PRN MC SEE COMMENTS; Start 07/09/19 at 08:00; Status UNV Info (PHARMACY MONITORING -- do not chart) 1 each PRN DAILY PRN MC SEE COMMENTS; Start 07/09/19 at 08:00; Stop 07/11/19 at 08:25; Status DC Sodium Chloride 90 meq/Potassium Chloride 15 meq/ Potassium Phosphate 10 mmol/ Magnesium Sulfate 10 meq/Calcium Gluconate 20 meq/ Multivitamins 10 ml/Chromium/ Copper/Manganese/ Seleni/Zn 0.5 ml/ Total Parenteral Nutrition/Amino Acids/Dextrose/ Fat Emulsion Intravenous 1,512 ml @ 63 mls/hr TPN CONT IV Last administered on 07/09/19at 20:57; Start 07/09/19 at 22:00; Stop 07/10/19 at 21:59; Status DC Sodium Chloride 90 meq/Potassium Chloride 15 meq/ Potassium Phosphate 15 mmol/ Magnesium Sulfate 10 meq/Calcium Gluconate 20 meq/ Multivitamins 10 ml/Chromium/ Copper/Manganese/ Seleni/Zn 0.5 ml/ Total Parenteral Nutrition/Amino Aci ds/Dextrose/ Fat Emulsion Intravenous 1,512 ml @ 63 mls/hr TPN CONT IV ; Start 07/10/19 at 22:00; Stop 07/10/19 at 14:16; Status DC Sodium Chloride 90 meq/Potassium Chloride 15 meq/ Potassium Phosphate 15 mmol/ Magnesium Sulfate 10 meq/Calcium Gluconate 20 meq/ Multivitamins 10 ml/Chromium/ Copper/Manganese/ Seleni/Zn 0.5 ml/ Total Parenteral Nutrition/Amino Acids/Dextrose/ Fat Emulsion Intravenous 1,200 ml @ 50 mls/hr TPN CONT IV ; Start 07/10/19 at 22:00; Stop 07/10/19 at 14:17; Status DC Sodium Chloride 90 meq/Potassium Chloride 15 meq/ Potassium Phosphate 10 mmol/ Magnesium Sulfate 10 meq/Calcium Gluconate 20 meq/ Multivitamins 10 ml/Chromium/ Copper/Manganese/ Seleni/Zn 0.5 ml/ Total Parenteral Nutrition/Amino Acids/Dextrose/ Fat Emulsion Intravenous 1,200 ml @ 50 mls/hr TPN CONT IV Last administered on 07/10/19at 23:29; Start 07/10/19 at 22:00; Stop 07/11/19 at 21:59; Status DC Sodium Chloride 1,000 ml @ 1,000 mls/hr Q1H PRN IV hypotension; Start 07/11/19 at 07:28; Stop 07/11/19 at 13:27; Status DC Albumin Human 200 ml @ 200 mls/hr 1X ONCE IV Last administered on 07/11/19at 08:51; Start 07/11/19 at 07:30; Stop 07/11/19 at 08:29; Status DC Diphenhydramine HCl (Benadryl) 25 mg 1X PRN PRN IV ITCHING; Start 07/11/19 at 07:30; Stop 07/12/19 at 07:29; Status DC Diphenhydramine HCl (Benadryl) 25 mg 1X PRN PRN IV ITCHING; Start 07/11/19 at 07:30; Stop 07/12/19 at 07:29; Status DC Sodium Chloride 1,000 ml @ 400 mls/hr Q2H30M PRN IV PATENCY; Start 07/11/19 at 07:28; Stop 07/11/19 at 19:27; Status DC Info (PHARMACY MONITORING -- do not chart) 1 each PRN DAILY PRN MC SEE COMMENTS; Start 07/11/19 at 07:30; Stop 07/22/19 at 13:01; Status DC Metronidazole 100 ml @ 100 mls/hr Q6HRS IV Last administered on 07/27/19at 06:26; Start 07/11/19 at 08:30; Stop 07/27/19 at 09:58; Status DC Micafungin Sodium 100 mg/Dextrose 100 ml @ 100 mls/hr Q24H IV Last administered on 08/18/19at 08:18; Start 07/11/19 at 09:00; Stop 08/18/19 at 20:58; Status DC Propofol 0 ml @ As Directed STK-MED ONCE IV ; Start 07/11/19 at 07:53; Stop 07/11/19 at 07:53; Status DC Etomidate (Amidate) 20 mg STK-MED ONCE IV ; Start 07/11/19 at 07:53; Stop 07/11/19 at 07:54; Status DC Midazolam HCl (Versed) 5 mg STK-MED ONCE .ROUTE ; Start 07/11/19 at 07:57; Stop 07/11/19 at 07:57; Status DC Fentanyl Citrate 30 ml @ 0 mls/hr CONT PRN IV SEE PROTOCOL Last administered on 08/05/19at 06:12; Start 07/11/19 at 08:15; Stop 08/05/19 at 09:19; Status DC Artificial Tears (Artificial Tears) 1 drop PRN Q1HR PRN OU DRY EYE, 1st choice; Start 07/11/19 at 08:15; Stop 08/17/19 at 05:31; Status DC Midazolam HCl 50 mg/Sodium Chloride 50 ml @ 0 mls/hr CONT PRN IV SEE PROTOCOL Last administered on 07/14/19at 22:39; Start 07/11/19 at 08:15; Stop 07/16/19 at 15:59; Status DC Etomidate (Amidate) 8 mg 1X ONCE IV Last administered on 07/11/19at 08:33; Start 07/11/19 at 08:30; Stop 07/11/19 at 08:31; Status DC Succinylcholine Chloride (Anectine) 120 mg 1X ONCE IV Last administered on 07/11/19at 08:34; Start 07/11/19 at 08:30; Stop 07/11/19 at 08:31; Status DC Midazolam HCl (Versed) 5 mg 1X ONCE IV ; Start 07/11/19 at 08:30; Stop 07/11/19 at 08:31; Status DC Potassium Chloride 15 meq/ Bicarbonate Dialysis Soln w/ out KCl 5,007.5 ml @ 1,000 mls/ hr Q5H1M IV Last administered on 07/12/19at 11:11; Start 07/11/19 at 12:00; Stop 07/12/19 at 11:15; Status DC Potassium Chloride 15 meq/ Bicarbonate Dialysis Soln w/ out KCl 5,007.5 ml @ 1,000 mls/ hr Q5H1M IV Last administered on 07/12/19at 11:12; Start 07/11/19 at 12:00; Stop 07/12/19 at 11:17; Status DC Potassium Chloride 15 meq/ Bicarbonate Dialysis Soln w/ out KCl 5,007.5 ml @ 1,000 mls/ hr Q5H1M IV Last administered on 07/12/19at 11:11; Start 07/11/19 at 12:00; Stop 07/12/19 at 11:19; Status DC Sodium Chloride 90 meq/Potassium Chloride 15 meq/ Potassium Phosphate 10 mmol/ Magnesium Sulfate 10 meq/Calcium Gluconate 20 meq/ Multivitamins 10 ml/Chromium/ Copper/Manganese/ Seleni/Zn 0.5 ml/ Total Parenteral Nutrition/Amino Acids/Dextrose/ Fat Emulsion Intravenous 1,400 ml @ 58.333 mls/ hr TPN CONT IV Last administered on 07/11/19at 21:42; Start 07/11/19 at 22:00; Stop 07/12/19 at 21:59; Status DC Heparin Sodium (Porcine) (Heparin Sodium) 5,000 unit Q8HRS SQ Last administered on 07/16/19at 05:55; Start 07/11/19 at 15:00; Stop 07/16/19 at 13:28; Status DC Meropenem 500 mg/ Sodium Chloride 50 ml @ 100 mls/hr Q6HRS IV Last administered on 07/13/19at 06:00; Start 07/12/19 at 09:00; Stop 07/13/19 at 07:29; Status DC Potassium Phosphate 20 mmol/ Sodium Chloride 106.6667 ml @ 51.667 m... 1X ONCE IV Last administered on 07/12/19at 11:22; Start 07/12/19 at 10:15; Stop 07/12/19 at 12:18; Status DC Acetaminophen (Tylenol Supp) 650 mg PRN Q6HRS PRN UT MILD PAIN / TEMP > 100.3'F Last administered on 09/28/19at 22:16; Start 07/12/19 at 10:30 Potassium Chloride/Water 100 ml @ 100 mls/hr Q1H IV Last administered on 07/12/19at 12:12; Start 07/12/19 at 11:00; Stop 07/12/19 at 12:59; Status DC Potassium Chloride 20 meq/ Bicarbonate Dialysis Soln w/ out KCl 5,010 ml @ 1,000 mls/hr Q5H1M IV Last administered on 07/13/19at 08:48; Start 07/12/19 at 12:00; Stop 07/13/19 at 13:03; Status DC Potassium Chloride 20 meq/ Bicarbonate Dialysis Soln w/ out KCl 5,010 ml @ 1,000 mls/hr Q5H1M IV Last administered on 07/17/19at 14:52; Start 07/12/19 at 11:30; Stop 07/17/19 at 19:59; Status DC Potassium Chloride 20 meq/ Bicarbonate Dialysis Soln w/ out KCl 5,010 ml @ 1,000 mls/hr Q5H1M IV Last administered on 07/17/19at 14:53; Start 07/12/19 at 11:30; Stop 07/17/19 at 19:59; Status DC Sodium Chloride 90 meq/Potassium Chloride 15 meq/ Potassium Phosphate 15 mmol/ Magnesium Sulfate 10 meq/Calcium Gluconate 15 meq/ Multivitamins 10 ml/Chromium/ Copper/Manganese/ Seleni/Zn 0.5 ml/ Total Parenteral Nutrition/Amino Acids/Dextrose/ Fat Emulsion Intravenous 1,400 ml @ 58.333 mls/ hr TPN CONT IV Last administered on 07/12/19at 22:17; Start 07/12/19 at 22:00; Stop 07/13/19 at 21:59; Status DC Cefepime HCl (Maxipime) 2 gm Q12HR IVP Last administered on 07/26/19at 20:56; Start 07/13/19 at 09:00; Stop 07/27/19 at 09:58; Status DC Daptomycin 500 mg/ Sodium Chloride 50 ml @ 100 mls/hr Q48H IV Last administered on 07/29/19at 09:57; Start 07/13/19 at 08:30; Stop 07/29/19 at 10:07; Status DC Lidocaine HCl (Buffered Lidocaine 1%) 3 ml 1X ONCE INJ Last administered on 07/13/19at 10:27; Start 07/13/19 at 10:30; Stop 07/13/19 at 10:31; Status DC Potassium Phosphate 20 mmol/ Sodium Chloride 106.6667 ml @ 51.667 m... 1X ONCE IV Last administered on 07/13/19at 12:51; Start 07/13/19 at 13:00; Stop 07/13/19 at 15:03; Status DC Sodium Chloride 90 meq/Potassium Chloride 15 meq/ Potassium Phosphate 18 mmol/ Magnesium Sulfate 8 meq/Calcium Gluconate 15 meq/ Multivitamins 10 ml/Chromium/ Copper/Manganese/ Seleni/Zn 0.5 ml/ Total Parenteral Nutrition/Amino Acids/Dextrose/ Fat Emulsion Intravenous 1,400 ml @ 58.333 mls/ hr TPN CONT IV Last administered on 07/13/19at 22:16; Start 07/13/19 at 22:00; Stop 07/14/19 at 21:59; Status DC Potassium Chloride 20 meq/ Bicarbonate Dialysis Soln w/ out KCl 5,010 ml @ 1,000 mls/hr Q5H1M IV Last administered on 07/17/19at 14:54; Start 07/13/19 at 16:00; Stop 07/17/19 at 19:59; Status DC Multi-Ingred Cream/Lotion/Oil/ Oint (Artificial Tears Eye Ointment) 1 ramu PRN Q1HR PRN OU DRY EYE, 2nd choice Last administered on 08/01/19at 08:19; Start 07/13/19 at 17:30; Stop 09/21/19 at 14:39; Status DC Sodium Chloride 90 meq/Potassium Chloride 15 meq/ Potassium Phosphate 18 mmol/ Magnesium Sulfate 8 meq/Calcium Gluconate 15 meq/ Multivitamins 10 ml/Chromium/ Copper/Manganese/ Seleni/Zn 0.5 ml/ Total Parenteral Nutrition/Amino Acids/Dextrose/ Fat Emulsion Intravenous 1,400 ml @ 58.333 mls/ hr TPN CONT IV Last administered on 07/14/19at 22:00; Start 07/14/19 at 22:00; Stop 07/15/19 at 21:59; Status DC Albumin Human 500 ml @ 125 mls/hr 1X ONCE IV ; Start 07/14/19 at 14:15; Stop 07/14/19 at 18:14; Status DC Sodium Chloride 90 meq/Potassium Chloride 15 meq/ Potassium Phosphate 18 mmol/ Magnesium Sulfate 8 meq/Calcium Gluconate 15 meq/ Multivitamins 10 ml/Chromium/ Copper/Manganese/ Seleni/Zn 0.5 ml/ Insulin Human Regular 10 unit/ Total Parenteral Nutrition/Amino Acids/Dextrose/ Fat Emulsion Intravenous 1,400 ml @ 58.333 mls/ hr TPN CONT IV Last administered on 07/15/19at 21:43; Start 07/15/19 at 22:00; Stop 07/16/19 at 21:59; Status DC Lidocaine HCl (Buffered Lidocaine 1%) 3 ml STK-MED ONCE .ROUTE ; Start 07/13/19 at 10:00; Stop 07/15/19 at 13:57; Status DC Midazolam HCl 100 mg/Sodium Chloride 100 ml @ 7 mls/hr CONT PRN IV SEE PROTOCOL Last administered on 07/27/19at 15:35; Start 07/16/19 at 16:00; Stop 09/21/19 at 14:38; Status DC Sodium Chloride 90 meq/Potassium Chloride 15 meq/ Potassium Phosphate 18 mmol/ Magnesium Sulfate 8 meq/Calcium Gluconate 15 meq/ Multivitamins 10 ml/Chromium/ Copper/Manganese/ Seleni/Zn 0.5 ml/ Insulin Human Regular 15 unit/ Total Parenteral Nutrition/Amino Acids/Dextrose/ Fat Emulsion Intravenous 1,400 ml @ 58.333 mls/ hr TPN CONT IV Last administered on 07/16/19at 20:34; Start 07/16/19 at 22:00; Stop 07/17/19 at 21:59; Status DC Info (Icu Electrolyte Protocol) 1 ea CONT PRN PRN MC PER PROTOCOL; Start 07/17/19 at 13:15 Sodium Chloride 90 meq/Potassium Chloride 15 meq/ Potassium Phosphate 18 mmol/ Magnesium Sulfate 8 meq/Calcium Gluconate 15 meq/ Multivitamins 10 ml/Chromium/ Copper/Manganese/ Seleni/Zn 0.5 ml/ Insulin Human Regular 15 unit/ Total Parenteral Nutrition/Amino Acids/Dextrose/ Fat Emulsion Intravenous 1,400 ml @ 58.333 mls/ hr TPN CONT IV Last administered on 07/17/19at 22:05; Start 07/17/19 at 22:00; Stop 07/18/19 at 21:59; Status DC Potassium Chloride 15 meq/ Bicarbonate Dialysis Soln w/ out KCl 5,007.5 ml @ 1,000 mls/ hr Q5H1M IV Last administered on 07/20/19at 18:14; Start 07/17/19 at 20:00; Stop 07/21/19 at 13:08; Status DC Potassium Chloride 15 meq/ Bicarbonate Dialysis Soln w/ out KCl 5,007.5 ml @ 1,000 mls/ hr Q5H1M IV Last administered on 07/20/19at 18:14; Start 07/17/19 at 20:00; Stop 07/21/19 at 13:08; Status DC Potassium Chloride 15 meq/ Bicarbonate Dialysis Soln w/ out KCl 5,007.5 ml @ 1,000 mls/ hr Q5H1M IV Last administered on 07/20/19at 18:14; Start 07/17/19 at 20:00; Stop 07/21/19 at 13:08; Status DC Iohexol (Omnipaque 240 Mg/ml) 30 ml 1X ONCE PO Last administered on 07/18/19at 11:30; Start 07/18/19 at 11:30; Stop 07/18/19 at 11:33; Status DC Info (CONTRAST GIVEN -- Rx MONITORING) 1 each PRN DAILY PRN MC SEE COMMENTS; Start 07/18/19 at 11:45; Stop 07/20/19 at 11:44; Status DC Sodium Chloride 90 meq/Potassium Chloride 15 meq/ Potassium Phosphate 18 mmol/ Magnesium Sulfate 8 meq/Calcium Gluconate 15 meq/ Multivitamins 10 ml/Chromium/ Copper/Manganese/ Seleni/Zn 0.5 ml/ Insulin Human Regular 15 unit/ Total Parenteral Nutrition/Amino Acids/Dextrose/ Fat Emulsion Intravenous 1,400 ml @ 58.333 mls/ hr TPN CONT IV Last administered on 07/18/19at 21:47; Start 07/18/19 at 22:00; Stop 07/19/19 at 21:59; Status DC Sodium Chloride 90 meq/Potassium Chloride 15 meq/ Potassium Phosphate 18 mmol/ Magnesium Sulfate 8 meq/Calcium Gluconate 15 meq/ Multivitamins 10 ml/Chromium/ Copper/Manganese/ Seleni/Zn 0.5 ml/ Insulin Human Regular 20 unit/ Total Parenteral Nutrition/Amino Acids/Dextrose/ Fat Emulsion Intravenous 1,400 ml @ 58.333 mls/ hr TPN CONT IV Last administered on 07/19/19at 21:36; Start 07/19/19 at 22:00; Stop 07/20/19 at 21:59; Status DC Alteplase, Recombinant (Cathflo For Central Catheter Clearance) 1 mg 1X ONCE INT CAT Last administered on 07/19/19at 20:03; Start 07/19/19 at 19:30; Stop 07/19/19 at 19:46; Status DC Alteplase, Recombinant (Cathflo For Central Catheter Clearance) 1 mg 1X ONCE INT CAT Last administered on 07/19/19at 22:05; Start 07/19/19 at 22:00; Stop 07/19/19 at 22:01; Status DC Sodium Chloride 90 meq/Potassium Chloride 15 meq/ Potassium Phosphate 18 mmol/ Magnesium Sulfate 8 meq/Calcium Gluconate 15 meq/ Multivitamins 10 ml/Chromium/ Copper/Manganese/ Seleni/Zn 0.5 ml/ Insulin Human Regular 20 unit/ Total Parenteral Nutrition/Amino Acids/Dextrose/ Fat Emulsion Intravenous 1,400 ml @ 58.333 mls/ hr TPN CONT IV Last administered on 07/20/19at 21:30; Start 07/20/19 at 22:00; Stop 07/21/19 at 21:59; Status DC Dexmedetomidine HCl 400 mcg/ Sodium Chloride 100 ml @ 0 mls/hr CONT PRN IV ANXIETY / AGITATION Last administered on 09/17/19at 12:57; Start 07/21/19 at 08:15; Stop 09/17/19 at 18:31; Status DC Sodium Chloride 500 ml @ 500 mls/hr 1X PRN PRN IV ELEVATED BP, SEE COMMENTS; Start 07/21/19 at 08:15 Atropine Sulfate (ATROPINE 0.5mg SYRINGE) 0.5 mg PRN Q5MIN PRN IV SEE COMMENTS; Start 07/21/19 at 08:15 Furosemide (Lasix) 20 mg 1X ONCE IVP Last administered on 07/21/19at 08:19; Start 07/21/19 at 08:15; Stop 07/21/19 at 08:16; Status DC Lidocaine HCl (Buffered Lidocaine 1%) 3 ml STK-MED ONCE .ROUTE ; Start 07/21/19 at 08:39; Stop 07/21/19 at 08:39; Status DC Lidocaine HCl (Buffered Lidocaine 1%) 6 ml 1X ONCE INJ Last administered on 07/21/19at 09:05; Start 07/21/19 at 09:00; Stop 07/21/19 at 09:06; Status DC Sodium Chloride 90 meq/Potassium Chloride 15 meq/ Potassium Phosphate 18 mmol/ Magnesium Sulfate 8 meq/Calcium Gluconate 15 meq/ Multivitamins 10 ml/Chromium/ Copper/Manganese/ Seleni/Zn 0.5 ml/ Insulin Human Regular 20 unit/ Total Parenteral Nutrition/Amino Acids/Dextrose/ Fat Emulsion Intravenous 1,400 ml @ 58.333 mls/ hr TPN CONT IV Last administered on 07/21/19at 22:45; Start 07/21/19 at 22:00; Stop 07/22/19 at 21:59; Status DC Sodium Chloride 1,000 ml @ 1,000 mls/hr Q1H PRN IV hypotension; Start 07/22/19 at 07:30; Stop 07/22/19 at 13:29; Status DC Albumin Human 200 ml @ 200 mls/hr 1X PRN PRN IV Hypotension Last administered on 07/22/19at 09:36; Start 07/22/19 at 07:30; Stop 07/22/19 at 13:29; Status DC Sodium Chloride (Normal Saline Flush) 10 ml 1X PRN PRN IV AP catheter pack; S tart 07/22/19 at 07:30; Stop 07/22/19 at 21:29; Status DC Sodium Chloride (Normal Saline Flush) 10 ml 1X PRN PRN IV AD[employer]RAT[employer]ORDIN[employer] catheter pack; Start 07/22/19 at 07:30; Stop 07/23/19 at 07:29; Status DC Sodium Chloride 1,000 ml @ 400 mls/hr Q2H30M PRN IV PATENCY; Start 07/22/19 at 07:30; Stop 07/22/19 at 19:29; Status DC Info (PHARMACY MONITORING -- do not chart) 1 each PRN DAILY PRN MC SEE C OMMENTS; Start 07/22/19 at 07:30; Stop 07/22/19 at 13:02; Status DC Info (PHARMACY MONITORING -- do not chart) 1 each PRN DAILY PRN MC SEE COMMENTS; Start 07/22/19 at 07:30; Stop 07/24/19 at 12:45; Status DC Sodium Chloride 90 meq/Potassium Chloride 15 meq/ Potassium Phosphate 10 mmol/ Magnesium Sulfate 8 meq/Calcium Gluconate 15 meq/ Multivitamins 10 ml/Chromium/ Copper/Manganese/ Seleni/Zn 0.5 ml/ Insulin Human Regular 25 unit/ Total Parenteral Nutrition/Amino Acids/Dextrose/ Fat Emulsion Intravenous 1,400 ml @ 58.333 mls/ hr TPN CONT IV Last administered on 07/22/19at 22:19; Start 07/22/19 at 22:00; Stop 07/23/19 at 21:59; Status DC Heparin Sodium (Porcine) (Heparin Sodium) 5,000 unit Q12HR SQ Last administered on 08/14/19at 08:59; Start 07/22/19 at 21:00; Stop 08/14/19 at 10:05; Status DC Ondansetron HCl (Zofran) 4 mg PRN Q6HRS PRN IV NAUSEA/VOMITING; Start 07/25/19 at 07:00; Stop 07/26/19 at 06:59; Status DC Fentanyl Citrate (Fentanyl 2ml Vial) 25 mcg PRN Q5MIN PRN IV MILD PAIN 1-3; Start 07/25/19 at 07:00; Stop 07/26/19 at 06:59; Status DC Fentanyl Citrate (Fentanyl 2ml Vial) 50 mcg PRN Q5MIN PRN IV MODERATE TO SEVERE PAIN; Start 07/25/19 at 07:00; Stop 07/26/19 at 06:59; Status DC Ringer's Solution 1,000 ml @ 30 mls/hr Q24H IV ; Start 07/25/19 at 07:00; Stop 07/25/19 at 18:59; Status DC Lidocaine HCl (Xylocaine-Mpf 1% 2ml Vial) 2 ml PRN 1X PRN ID PRIOR TO IV START; Start 07/25/19 at 07:00; Stop 07/26/19 at 06:59; Status DC Prochlorperazine Edisylate (Compazine) 5 mg PACU PRN PRN IV NAUSEA, MRX1; Start 07/25/19 at 07:00; Stop 07/26/19 at 06:59; Status DC Sodium Chloride 1,000 ml @ 1,000 mls/hr Q1H PRN IV hypotension; Start 07/23/19 at 09:10; Stop 07/23/19 at 15:09; Status DC Albumin Human 200 ml @ 200 mls/hr 1X PRN PRN IV Hypotension Last administered on 07/23/19at 10:10; Start 07/23/19 at 09:15; Stop 07/23/19 at 15:14; Status DC Sodium Chloride 1,000 ml @ 400 mls/hr Q2H30M PRN IV PATENCY; Start 07/23/19 at 09:10; Stop 07/23/19 at 21:09; Status DC Info (PHARMACY MONITORING -- do not chart) 1 each PRN DAILY PRN MC SEE COMMENTS; Start 07/23/19 at 09:15; Stop 07/24/19 at 12:45; Status DC Info (PHARMACY MONITORING -- do not chart) 1 each PRN DAILY PRN MC SEE COMMENTS; Start 07/23/19 at 09:15; Stop 07/24/19 at 12:45; Status DC Sodium Chloride 90 meq/Potassium Chloride 15 meq/ Potassium Phosphate 10 mmol/ Magnesium Sulfate 8 meq/Calcium Gluconate 15 meq/ Multivitamins 10 ml/Chromium/ Copper/Manganese/ Seleni/Zn 0.5 ml/ Insulin Human Regular 25 unit/ Total Parenteral Nutrition/Amino Acids/Dextrose/ Fat Emulsion Intravenous 1,400 ml @ 58.333 mls/ hr TPN CONT IV Last administered on 07/23/19at 22:10; Start 07/23/19 at 22:00; Stop 07/24/19 at 21:59; Status DC Magnesium Sulfate 50 ml @ 25 mls/hr PRN DAILY PRN IV for Mag < 1.7 on am labs Last administered on 08/08/19at 17:27; Start 07/24/19 at 09:15 Sodium Chloride 90 meq/Potassium Chloride 15 meq/ Potassium Phosphate 10 mmol/ Magnesium Sulfate 8 meq/Calcium Gluconate 15 meq/ Multivitamins 10 ml/Chromium/ Copper/Manganese/ Seleni/Zn 0.5 ml/ Insulin Human Regular 25 unit/ Total Parenteral Nutrition/Amino Acids/Dextrose/ Fat Emulsion Intravenous 1,400 ml @ 58.333 mls/ hr TPN CONT IV Last administered on 07/24/19at 21:20; Start 07/24/19 at 22:00; Stop 07/25/19 at 21:59; Status DC Sodium Chloride 1,000 ml @ 1,000 mls/hr Q1H PRN IV hypotension; Start 07/24/19 at 12:23; Stop 07/24/19 at 18:22; Status DC Albumin Human 200 ml @ 200 mls/hr 1X ONCE IV Last administered on 07/24/19at 13:34; Start 07/24/19 at 12:30; Stop 07/24/19 at 13:29; Status DC Diphenhydramine HCl (Benadryl) 25 mg 1X PRN PRN IV ITCHING; Start 07/24/19 at 12:30; Stop 07/25/19 at 12:29; Status DC Diphenhydramine HCl (Benadryl) 25 mg 1X PRN PRN IV ITCHING; Start 07/24/19 at 12:30; Stop 07/25/19 at 12:29; Status DC Info (PHARMACY MONITORING -- do not chart) 1 each PRN DAILY PRN MC SEE COMMENTS; Start 07/24/19 at 12:30; Status Cancel Bupivacaine HCl/ Epinephrine Bitart (Sensorcain-Epi 0.5%-1:172645 Mpf) 30 ml STK-MED ONCE .ROUTE Last administered on 07/25/19at 11:44; Start 07/25/19 at 11:00; Stop 07/25/19 at 11:01; Status DC Cellulose (Surgicel Fibrillar 1x2) 1 each STK-MED ONCE .ROUTE ; Start 07/25/19 at 11:00; Stop 07/25/19 at 11:01; Status DC Sodium Chloride 90 meq/Potassium Chloride 15 meq/ Potassium Phosphate 10 mmol/ Magnesium Sulfate 12 meq/Calcium Gluconate 15 meq/ Multivitamins 10 ml/Chromium/ Copper/Manganese/ Seleni/Zn 0.5 ml/ Insulin Human Regular 25 unit/ Total Parenteral Nutrition/Amino Acids/Dextrose/ Fat Emulsion Intravenous 1,400 ml @ 58.333 mls/ hr TPN CONT IV Last administered on 07/25/19at 22:24; Start 07/25/19 at 22:00; Stop 07/26/19 at 21:59; Status DC Propofol 20 ml @ As Directed STK-MED ONCE IV ; Start 07/25/19 at 11:07; Stop 07/25/19 at 11:07; Status DC Cellulose (Surgicel Hemostat 4x8) 1 each STK-MED ONCE .ROUTE Last administered on 07/25/19at 11:44; Start 07/25/19 at 11:55; Stop 07/25/19 at 11:56; Status DC Sevoflurane (Ultane) 60 ml STK-MED ONCE IH ; Start 07/25/19 at 12:46; Stop 07/25/19 at 12:46; Status DC Sodium Chloride 1,000 ml @ 1,000 mls/hr Q1H PRN IV hypotension; Start 07/25/19 at 13:51; Stop 07/25/19 at 19:50; Status DC Albumin Human 200 ml @ 200 mls/hr 1X PRN PRN IV Hypotension Last administered on 07/25/19at 14:51; Start 07/25/19 at 14:00; Stop 07/25/19 at 19:59; Status DC Diphenhydramine HCl (Benadryl) 25 mg 1X PRN PRN IV ITCHING; Start 07/25/19 at 14:00; Stop 07/26/19 at 13:59; Status DC Diphenhydramine HCl (Benadryl) 25 mg 1X PRN PRN IV ITCHING; Start 07/25/19 at 14:00; Stop 07/26/19 at 13:59; Status DC Sodium Chloride 1,000 ml @ 400 mls/hr Q2H30M PRN IV PATENCY; Start 07/25/19 at 13:51; Stop 07/26/19 at 01:50; Status DC Info (PHARMACY MONITORING -- do not chart) 1 each PRN DAILY PRN MC SEE COMMENTS; Start 07/25/19 at 14:00; Stop 07/28/19 at 08:16; Status DC Heparin Sodium (Porcine) (Hep Lock Adult) 500 unit STK-MED ONCE IVP ; Start 07/26/19 at 09:29; Stop 07/26/19 at 09:30; Status DC Sodium Chloride 1,000 ml @ 1,000 mls/hr Q1H PRN IV hypotension; Start 07/26/19 at 10:43; Stop 07/26/19 at 16:42; Status DC Sodium Chloride 1,000 ml @ 400 mls/hr Q2H30M PRN IV PATENCY; Start 07/26/19 at 10:43; Stop 07/26/19 at 22:42; Status DC Info (PHARMACY MONITORING -- do not chart) 1 each PRN DAILY PRN MC SEE COMMENTS; Start 07/26/19 at 10:45; Status UNV Info (PHARMACY MONITORING -- do not chart) 1 each PRN DAILY PRN MC SEE COMMENTS; Start 07/26/19 at 10:45; Status UNV Sodium Chloride 90 meq/Potassium Chloride 15 meq/ Magnesium Sulfate 12 meq/Calcium Gluconate 15 meq/ Multivitamins 10 ml/Chromium/ Copper/Manganese/ Seleni/Zn 0.5 ml/ Insulin Human Regular 25 unit/ Total Parenteral Nutrition/Amino Acids/Dextrose/ Fat Emulsion Intravenous 1,400 ml @ 58.333 mls/ hr TPN CONT IV Last administered on 07/26/19at 22:13; Start 07/26/19 at 22:00; Stop 07/27/19 at 21:59; Status DC Sodium Chloride 1,000 ml @ 1,000 mls/hr Q1H PRN IV hypotension; Start 07/27/19 at 07:50; Stop 07/27/19 at 13:49; Status DC Albumin Human 200 ml @ 200 mls/hr 1X ONCE IV ; Start 07/27/19 at 08:00; Stop 07/27/19 at 08:53; Status DC Diphenhydramine HCl (Benadryl) 25 mg 1X PRN PRN IV ITCHING; Start 07/27/19 at 08:00; Stop 07/28/19 at 07:59; Status DC Diphenhydramine HCl (Benadryl) 25 mg 1X PRN PRN IV ITCHING; Start 07/27/19 at 08:00; Stop 07/28/19 at 07:59; Status DC Info (PHARMACY MONITORING -- do not chart) 1 each PRN DAILY PRN MC SEE COMMENTS; Start 07/27/19 at 08:00; Stop 07/28/19 at 08:16; Status DC Albumin Human 50 ml @ 50 mls/hr 1X ONCE IV ; Start 07/27/19 at 08:53; Stop 07/27/19 at 08:56; Status DC Albumin Human 200 ml @ 50 mls/hr PRN 1X PRN IV HYPOTENSION Last administered on 08/02/19at 11:54; Start 07/27/19 at 09:00; Stop 09/08/19 at 11:14; Status DC Meropenem 500 mg/ Sodium Chloride 50 ml @ 100 mls/hr Q12H IV Last administered on 08/16/19at 10:45; Start 07/27/19 at 10:00; Stop 08/16/19 at 12:37; Status DC Sodium Chloride 90 meq/Magnesium Sulfate 12 meq/ Calcium Gluconate 15 meq/ Multivitamins 10 ml/Chromium/ Copper/Manganese/ Seleni/Zn 0.5 ml/ Insulin Human Regular 25 unit/ Total Parenteral Nutrition/Amino Acids/Dextrose/ Fat Emulsion Intravenous 1,400 ml @ 58.333 mls/ hr TPN CONT IV Last administered on 07/27/19at 21:41; Start 07/27/19 at 22:00; Stop 07/28/19 at 21:59; Status DC Sodium Chloride 1,000 ml @ 1,000 mls/hr Q1H PRN IV hypotension; Start 07/28/19 at 07:58; Stop 07/28/19 at 13:57; Status DC Albumin Human 200 ml @ 200 mls/hr 1X PRN PRN IV Hypotension Last administered on 07/28/19at 09:30; Start 07/28/19 at 08:00; Stop 07/28/19 at 13:59; Status DC Sodium Chloride 1,000 ml @ 400 mls/hr Q2H30M PRN IV PATENCY; Start 07/28/19 at 07:58; Stop 07/28/19 at 19:57; Status DC Info (PHARMACY MONITORING -- do not chart) 1 each PRN DAILY PRN MC SEE COMMENT S; Start 07/28/19 at 08:00; Status Cancel Info (PHARMACY MONITORING -- do not chart) 1 each PRN DAILY PRN MC SEE COMMENTS; Start 07/28/19 at 08:15; Status UNV Sodium Chloride 90 meq/Potassium Phosphate 5 mmol/ Magnesium Sulfate 12 meq/Calcium Gluconate 15 meq/ Multivitamins 10 ml/Chromium/ Copper/Manganese/ Seleni/Zn 0.5 ml/ Insulin Human Regular 30 unit/ Total Parenteral Nutritio n/Amino Acids/Dextrose/ Fat Emulsion Intravenous 1,400 ml @ 58.333 mls/ hr TPN CONT IV Last administered on 07/28/19at 22:08; Start 07/28/19 at 22:00; Stop 07/29/19 at 21:59; Status DC Linezolid/Dextrose 300 ml @ 300 mls/hr Q12HR IV Last administered on 08/08/19at 20:40; Start 07/29/19 at 11:00; Stop 08/09/19 at 08:10; Status DC Sodium Chloride 90 meq/Potassium Phosphate 15 mmol/ Magnesium Sulfate 12 meq/Calcium Gluconate 15 meq/ Multivitamins 10 ml/Chromium/ Copper/Manganese/ Seleni/Zn 0.5 ml/ Insulin Human Regular 30 unit/ Total Parenteral Nutrition/Amino Acids/Dextrose/ Fat Emulsion Intravenous 1,400 ml @ 58.333 mls/ hr TPN CONT IV Last administered on 07/29/19at 21:49; Start 07/29/19 at 22:00; Stop 07/30/19 at 21:59; Status DC Sodium Chloride 90 meq/Potassium Phosphate 15 mmol/ Magnesium Sulfate 12 meq/Calcium Gluconate 15 meq/ Multivitamins 10 ml/Chromium/ Copper/Manganese/ Seleni/Zn 0.5 ml/ Insulin Human Regular 40 unit/ Total Parenteral Nutrition/Amino Acids/Dextrose/ Fat Emulsion Intravenous 1,400 ml @ 58.333 mls/ hr TPN CONT IV Last administered on 07/30/19at 21:21; Start 07/30/19 at 22:00; Stop 07/31/19 at 21:59; Status DC Sodium Chloride 1,000 ml @ 1,000 mls/hr Q1H PRN IV hypotension; Start 07/30/19 at 13:26; Stop 07/30/19 at 19:25; Status DC Albumin Human 200 ml @ 200 mls/hr 1X PRN PRN IV Hypotension Last administered on 07/30/19at 15:00; Start 07/30/19 at 13:30; Stop 07/30/19 at 19:29; Status DC Sodium Chloride (Normal Saline Flush) 10 ml 1X PRN PRN IV AP catheter pack; Start 07/30/19 at 13:30; Stop 07/31/19 at 13:29; Status DC Sodium Chloride (Normal Saline Flush) 10 ml 1X PRN PRN IV ADMINISTRATIVE PROJECT COORDINATOR catheter pack; Start 07/30/19 at 13:30; Stop 07/31/19 at 13:29; Status DC Sodium Chloride 1,000 ml @ 400 mls/hr Q2H30M PRN IV PATENCY; Start 07/30/19 at 13:26; Stop 07/31/19 at 01:25; Status DC Info (PHARMACY MONITORING -- do not chart) 1 each PRN DAILY PRN MC SEE COMMENT S; Start 07/30/19 at 13:30; Stop 07/30/19 at 13:33; Status DC Info (PHARMACY MONITORING -- do not chart) 1 each PRN DAILY PRN MC SEE COMMENTS; Start 07/30/19 at 13:30; Stop 07/30/19 at 13:34; Status DC Sodium Chloride 90 meq/Potassium Phosphate 19 mmol/ Magnesium Sulfate 12 meq/Calcium Gluconate 15 meq/ Multivitamins 10 ml/Chromium/ Copper/Manganese/ Seleni/Zn 0.5 ml/ Insulin Human Regular 40 unit/ Total Parenteral Nutrition/Amino Acids/Dextrose/ Fat Emulsion Intravenous 1,400 ml @ 58.333 mls/ hr TPN CONT IV Last administered on 07/31/19at 21:54; Start 07/31/19 at 22:00; Stop 08/01/19 at 21:59; Status DC Sodium Chloride 1,000 ml @ 1,000 mls/hr Q1H PRN IV hypotension; Start 08/01/19 at 09:35; Stop 08/01/19 at 15:34; Status DC Albumin Human 200 ml @ 200 mls/hr 1X PRN PRN IV Hypotension; Start 08/01/19 at 09:45; Stop 08/01/19 at 15:44; Status DC Diphenhydramine HCl (Benadryl) 25 mg 1X PRN PRN IV ITCHING; Start 08/01/19 at 09:45; Stop 08/02/19 at 09:44; Status DC Diphenhydramine HCl (Benadryl) 25 mg 1X PRN PRN IV ITCHING; Start 08/01/19 at 09:45; Stop 08/02/19 at 09:44; Status DC Sodium Chloride 1,000 ml @ 400 mls/hr Q2H30M PRN IV PATENCY; Start 08/01/19 at 09:35; Stop 08/01/19 at 21:34; Status DC Info (PHARMACY MONITORING -- do not chart) 1 each PRN DAILY PRN MC SEE COMMENTS; Start 08/01/19 at 09:45; Status Cancel Sodium Chloride 100 meq/Potassium Phosphate 19 mmol/ Magnesium Sulfate 12 meq/Calcium Gluconate 15 meq/ Multivitamins 10 ml/Chromium/ Copper/Manganese/ Seleni/Zn 0.5 ml/ Insulin Human Regular 40 unit/ Potassium Chloride 20 meq/ Total Parenteral Nutrition/Amino Acids/Dextrose/ Fat Emulsion Intravenous 1,400 ml @ 58.333 mls/ hr TPN CONT IV Last administered on 08/01/19at 22:02; Start 08/01/19 at 22:00; Stop 08/02/19 at 21:59; Status DC Furosemide (Lasix) 40 mg 1X ONCE IVP Last administered on 08/01/19at 14:39; Start 08/01/19 at 14:30; Stop 08/01/19 at 14:31; Status DC Metronidazole 100 ml @ 100 mls/hr Q8HRS IV Last administered on 08/09/19at 06:04; Start 08/02/19 at 10:00; Stop 08/09/19 at 08:10; Status DC Sodium Chloride 1,000 ml @ 1,000 mls/hr Q1H PRN IV hypotension; Start 08/02/19 at 08:00; Stop 08/02/19 at 13:59; Status DC Albumin Human 200 ml @ 200 mls/hr 1X PRN PRN IV Hypotension; Start 08/02/19 at 08:00; Stop 08/02/19 at 13:59; Status DC Sodium Chloride 1,000 ml @ 400 mls/hr Q2H30M PRN IV PATENCY; Start 08/02/19 at 08:00; Stop 08/02/19 at 19:59; Status DC Info (PHARMACY MONITORING -- do not chart) 1 each PRN DAILY PRN MC SEE COMMENTS; Start 08/02/19 at 11:30; Status UNV Info (PHARMACY MONITORING -- do not chart) 1 each PRN DAILY PRN MC SEE COMMENTS; Start 08/02/19 at 11:30; Stop 08/04/19 at 12:13; Status DC Sodium Chloride 100 meq/Potassium Phosphate 19 mmol/ Magnesium Sulfate 12 meq/Calcium Gluconate 15 meq/ Multivitamins 10 ml/Chromium/ Copper/Manganese/ Seleni/Zn 0.5 ml/ Insulin Human Regular 40 unit/ Potassium Chloride 20 meq/ Total Parenteral Nutrition/Amino Acids/Dextrose/ Fat Emulsion Intravenous 1,400 ml @ 58.333 mls/ hr TPN CONT IV Last administered on 08/02/19at 21:52; Start 08/02/19 at 22:00; Stop 08/03/19 at 21:59; Status DC Sodium Chloride (Normal Saline Flush) 10 ml QSHIFT PRN IV AFTER MEDS AND BLOOD DRAWS; Start 08/02/19 at 15:00; Stop 08/30/19 at 11:27; Status DC Sodium Chloride (Normal Saline Flush) 10 ml PRN Q5MIN PRN IV AFTER MEDS AND BLOOD DRAWS; Start 08/02/19 at 15:00 Sodium Chloride (Normal Saline Flush) 20 ml PRN Q5MIN PRN IV AFTER MEDS AND BLOOD DRAWS; Start 08/02/19 at 15:00 Sodium Chloride 100 meq/Potassium Phosphate 19 mmol/ Magnesium Sulfate 12 meq/Calcium Gluconate 15 meq/ Multivitamins 10 ml/Chromium/ Copper/Manganese/ Seleni/Zn 0.5 ml/ Insulin Human Regular 40 unit/ Potassium Chloride 20 meq/ Total Parenteral Nutrition/Amino Acids/Dextrose/ Fat Emulsion Intravenous 1,400 ml @ 58.333 mls/ hr TPN CONT IV Last administered on 08/03/19at 21:20; Start 08/03/19 at 22:00; Stop 08/04/19 at 21:59; Status DC Lidocaine HCl (Buffered Lidocaine 1%) 3 ml STK-MED ONCE .ROUTE ; Start 08/03/19 at 13:16; Stop 08/03/19 at 13:16; Status DC Lidocaine HCl (Buffered Lidocaine 1%) 6 ml 1X ONCE INJ Last administered on 08/03/19at 13:45; Start 08/03/19 at 13:30; Stop 08/03/19 at 13:31; Status DC Albumin Human 100 ml @ 100 mls/hr 1X ONCE IV Last administered on 08/03/19at 15:41; Start 08/03/19 at 15:00; Stop 08/03/19 at 15:59; Status DC Albumin Human 50 ml @ 50 mls/hr 1X ONCE IV Last administered on 08/03/19at 15:00; Start 08/03/19 at 15:00; Stop 08/03/19 at 15:59; Status DC Info (PHARMACY MONITORING -- do not chart) 1 each PRN DAILY PRN MC SEE PIPE TS; Start 08/04/19 at 11:30; Status Cancel Info (PHARMACY MONITORING -- do not chart) 1 each PRN DAILY PRN MC SEE COMMENTS; Start 08/04/19 at 11:30; Status UNV Sodium Chloride 100 meq/Potassium Phosphate 10 mmol/ Magnesium Sulfate 12 meq/Calcium Gluconate 15 meq/ Multivitamins 10 ml/Chromium/ Copper/Manganese/ Seleni/Zn 0.5 ml/ Insulin Human Regular 35 unit/ Potassium Chloride 20 meq/ Total Parenteral Nutrition/Amino Acids/Dextrose/ Fat Emulsion Intravenous 1,400 ml @ 58.333 mls/ hr TPN CONT IV Last administered on 08/04/19at 22:10; Start 08/04/19 at 22:00; Stop 08/05/19 at 21:59; Status DC Sodium Chloride 100 meq/Potassium Phosphate 5 mmol/ Magnesium Sulfate 12 meq/Calcium Gluconate 15 meq/ Multivitamins 10 ml/Chromium/ Copper/Manganese/ Seleni/Zn 0.5 ml/ Insulin Human Regular 35 unit/ Potassium Chloride 20 meq/ Total Parenteral Nutrition/Amino Acids/Dextrose/ Fat Emulsion Intravenous 1,400 ml @ 58.333 mls/ hr TPN CONT IV Last administered on 08/05/19at 22:59; Start 08/05/19 at 22:00; Stop 08/06/19 at 21:59; Status DC Sodium Chloride 1,000 ml @ 1,000 mls/hr Q1H PRN IV hypotension; Start 08/06/19 at 08:27; Stop 08/06/19 at 14:26; Status DC Albumin Human 200 ml @ 200 mls/hr 1X PRN PRN IV Hypotension Last administered on 08/06/19at 09:18; Start 08/06/19 at 08:30; Stop 08/06/19 at 14:29; Status DC Sodium Chloride 1,000 ml @ 400 mls/hr Q2H30M PRN IV PATENCY; Start 08/06/19 at 08:27; Stop 08/06/19 at 20:26; Status DC Info (PHARMACY MONITORING -- do not chart) 1 each PRN DAILY PRN MC SEE COMMENTS; Start 08/06/19 at 08:30; Status Cancel Info (PHARMACY MONITORING -- do not chart) 1 each PRN DAILY PRN MC SEE COMMENTS; Start 08/06/19 at 08:30; Stop 08/14/19 at 13:10; Status DC Sodium Chloride 100 meq/Potassium Chloride 40 meq/ Magnesium Sulfate 15 meq/C alcium Gluconate 15 meq/ Multivitamins 10 ml/Chromium/ Copper/Manganese/ Seleni/Zn 0.5 ml/ Insulin Human Regular 35 unit/ Total Parenteral Nutrition/Amino Acids/Dextrose/ Fat Emulsion Intravenous 1,400 ml @ 58.333 mls/ hr TPN CONT IV Last administered on 08/06/19at 22:00; Start 08/06/19 at 22:00; Stop 08/07/19 at 21:59; Status DC Potassium Chloride/Water 100 ml @ 100 mls/hr 1X ONCE IV Last administered on 08/06/19at 17:28; Start 08/06/19 at 14:45; Stop 08/06/19 at 15:44; Status DC Sodium Chloride 100 meq/Potassium Chloride 40 meq/ Magnesium Sulfate 15 meq/Calcium Gluconate 15 meq/ Multivitamins 10 ml/Chromium/ Copper/Manganese/ Seleni/Zn 0.5 ml/ Insulin Human Regular 35 unit/ Total Parenteral Nutrition/Amino Acids/Dextrose/ Fat Emulsion Intravenous 1,400 ml @ 58.333 mls/ hr TPN CONT IV Last administered on 08/07/19at 22:46; Start 08/07/19 at 22:00; Stop 08/08/19 at 21:59; Status DC Sodium Chloride 100 meq/Potassium Chloride 40 meq/ Magnesium Sulfate 20 meq/Calcium Gluconate 15 meq/ Multivitamins 10 ml/Chromium/ Copper/Manganese/ Seleni/Zn 0.5 ml/ Insulin Human Regular 35 unit/ Total Parenteral Nutrition/Amino Acids/Dextrose/ Fat Emulsion Intravenous 1,400 ml @ 58.333 mls/ hr TPN CONT IV Last administered on 08/08/19at 22:31; Start 08/08/19 at 22:00; Stop 08/09/19 at 21:59; Status DC Fentanyl Citrate (Fentanyl 2ml Vial) 50 mcg PRN Q2HR PRN IVP PAIN Last administered on 08/15/19at 13:32; Start 08/08/19 at 21:00; Stop 08/16/19 at 12:53; Status DC Fentanyl Citrate (Fentanyl 2ml Vial) 25 mcg PRN Q2HR PRN IVP PAIN; Start 08/08/19 at 21:00; Stop 08/16/19 at 12:54; Status DC Enoxaparin Sodium (Lovenox 100mg Syringe) 100 mg Q12HR SQ ; Start 08/09/19 at 21:00; Status UNV Amino Acids/ Glycerin/ Electrolytes 1,000 ml @ 75 mls/hr [id number] IV ; Start 08/08/19 at 21:15; Status UNV Sodium Chloride 1,000 ml @ 1,000 mls/hr Q1H PRN IV hypotension; Start 08/09/19 at 07:56; Stop 08/09/19 at 13:55; Status DC Albumin Human 200 ml @ 200 mls/hr 1X PRN PRN IV Hypotension Last administered on 08/09/19at 08:40; Start 08/09/19 at 08:00; Stop 08/09/19 at 13:59; Status DC Sodium Chloride 1,000 ml @ 400 mls/hr Q2H30M PRN IV PATENCY; Start 08/09/19 at 07:56; Stop 08/09/19 at 19:55; Status DC Info (PHARMACY MONITORING -- do not chart) 1 each PRN DAILY PRN MC SEE COMMENTS; Start 08/09/19 at 08:00; Status UNV Info (PHARMACY MONITORING -- do not chart) 1 each PRN DAILY PRN MC SEE COMMENTS; Start 08/09/19 at 08:00; Status UNV Daptomycin 430 mg/ Sodium Chloride 50 ml @ 100 mls/hr Q24H IV Last administered on 08/09/19at 12:35; Start 08/09/19 at 09:00; Stop 08/09/19 at 12:49; Status DC Sodium Chloride 100 meq/Potassium Chloride 40 meq/ Magnesium Sulfate 20 meq/Calcium Gluconate 15 meq/ Multivitamins 10 ml/Chromium/ Copper/Manganese/ Seleni/Zn 0.5 ml/ Insulin Human Regular 35 unit/ Total Parenteral Nutrition/Amino Acids/Dextrose/ Fat Emulsion Intravenous 1,400 ml @ 58.333 mls/ hr TPN CONT IV Last administered on 08/09/19at 21:26; Start 08/09/19 at 22:00; Stop 08/10/19 at 21:59; Status DC Daptomycin 430 mg/ Sodium Chloride 50 ml @ 100 mls/hr Q48H IV ; Start 08/11/19 at 09:00; Stop 08/10/19 at 11:55; Status DC Sodium Chloride 100 meq/Potassium Chloride 40 meq/ Magnesium Sulfate 20 meq/Calcium Gluconate 15 meq/ Multivitamins 10 ml/Chromium/ Copper/Manganese/ Seleni/Zn 0.5 ml/ Insulin Human Regular 35 unit/ Total Parenteral Nutrition/Amino Acids/Dextrose/ Fat Emulsion Intravenous 1,400 ml @ 58.333 mls/ hr TPN CONT IV Last administered on 08/10/19at 22:27; Start 08/10/19 at 22:00; Stop 08/11/19 at 21:59; Status DC Daptomycin 430 mg/ Sodium Chloride 50 ml @ 100 mls/hr Q24H IV Last administered on 08/12/19at 15:07; Start 08/10/19 at 13:00; Stop 08/13/19 at 13:15; Status DC Sodium Chloride 100 meq/Potassium Chloride 40 meq/ Magnesium Sulfate 20 meq/Calcium Gluconate 10 meq/ Multivitamins 10 ml/Chromium/ Copper/Manganese/ Seleni/Zn 0.5 ml/ Insulin Human Regular 35 unit/ Total Parenteral Nutrition/Amino Acids/Dextrose/ Fat Emulsion Intravenous 1,400 ml @ 58.333 mls/ hr TPN CONT IV Last administered on 08/12/19at 00:06; Start 08/11/19 at 22:00; Stop 08/12/19 at 21:59; Status DC Alteplase, Recombinant (Cathflo For Central Catheter Clearance) 1 mg 1X ONCE IN T CAT Last administered on 08/12/19at 11:44; Start 08/12/19 at 10:45; Stop 08/12/19 at 10:46; Status DC Ondansetron HCl (Zofran) 4 mg PRN Q6HRS PRN IV NAUSEA/VOMITING; Start 08/15/19 at 07:00; Stop 08/16/19 at 06:59; Status DC Fentanyl Citrate (Fentanyl 2ml Vial) 25 mcg PRN Q5MIN PRN IV MILD PAIN 1-3; Start 08/15/19 at 07:00; Stop 08/16/19 at 06:59; Status DC Fentanyl Citrate (Fentanyl 2ml Vial) 50 mcg PRN Q5MIN PRN IV MODERATE TO SEVERE PAIN Last administered on 08/15/19at 10:17; Start 08/15/19 at 07:00; Stop 08/16/19 at 06:59; Status DC Ringer's Solution 1,000 ml @ 30 mls/hr Q24H IV ; Start 08/15/19 at 07:00; Stop 08/15/19 at 18:59; Status DC Lidocaine HCl (Xylocaine-Mpf 1% 2ml Vial) 2 ml PRN 1X PRN ID PRIOR TO IV START; Start 08/15/19 at 07:00; Stop 08/16/19 at 06:59; Status DC Prochlorperazine Edisylate (Compazine) 5 mg PACU PRN PRN IV NAUSEA, MRX1; Start 08/15/19 at 07:00; Stop 08/16/19 at 06:59; Status DC Sodium Acetate 50 meq/Potassium Acetate 55 meq/ Magnesium Sulfate 20 meq/Calcium Gluconate 10 meq/ Multivitamins 10 ml/Chromium/ Copper/Manganese/ Seleni/Zn 0.5 ml/ Insulin Human Regular 35 unit/ Total Parenteral Nutrition/Amino Acids/Dextrose/ Fat Emulsion Intravenous 1,400 ml @ 58.333 mls/ hr TPN CONT IV ; Start 08/12/19 at 22:00; Stop 08/12/19 at 14:15; Status DC Sodium Acetate 50 meq/Potassium Acetate 55 meq/ Magnesium Sulfate 20 meq/Calcium Gluconate 10 meq/ Multivitamins 10 ml/Chromium/ Copper/Manganese/ Seleni/Zn 0.5 ml/ Insulin Human Regular 35 unit/ Total Parenteral Nutrition/Amino Acids/Dextrose/ Fat Emulsion Intravenous 1,800 ml @ 75 mls/hr TPN CONT IV Last administered on 08/12/19at 22:38; Start 08/12/19 at 22:00; Stop 08/13/19 at 21:59; Status DC Sodium Chloride 1,000 ml @ 1,000 mls/hr Q1H PRN IV hypotension; Start 08/12/19 at 15:31; Stop 08/12/19 at 21:30; Status DC Diphenhydramine HCl (Benadryl) 25 mg 1X PRN PRN IV ITCHING; Start 08/12/19 at 15:45; Stop 08/13/19 at 15:44; Status DC Diphenhydramine HCl (Benadryl) 25 mg 1X PRN PRN IV ITCHING; Start 08/12/19 at 15:45; Stop 08/13/19 at 15:44; Status DC Sodium Chloride 1,000 ml @ 400 mls/hr Q2H30M PRN IV PATENCY; Start 08/12/19 at 15:31; Stop 08/13/19 at 03:30; Status DC Info (PHARMACY MONITORING -- do not chart) 1 each PRN DAILY PRN MC SEE COMMENTS; Start 08/12/19 at 15:45; Stop 09/13/19 at 14:14; Status DC Sodium Acetate 50 meq/Potassium Acetate 55 meq/ Magnesium Sulfate 20 meq/Calcium Gluconate 10 meq/ Multivitamins 10 ml/Chromium/ Copper/Manganese/ Seleni/Zn 0.5 ml/ Insulin Human Regular 35 unit/ Total Parenteral Nutrition/Amino Acids/Dextrose/ Fat Emulsion Intravenous 1,800 ml @ 75 mls/hr TPN CONT IV Last administered on 08/13/19at 22:03; Start 08/13/19 at 22:00; Stop 08/14/19 at 21:59; Status DC Daptomycin 430 mg/ Sodium Chloride 50 ml @ 100 mls/hr Q24H IV Last administered on 08/18/19at 13:00; Start 08/13/19 at 13:00; Stop 08/18/19 at 20:58; Status DC Heparin Sodium (Porcine) 1000 unit/Sodium Chloride 1,001 ml @ 1,001 mls/hr 1X ONCE IRR ; Start 08/15/19 at 06:00; Stop 08/15/19 at 06:59; Status DC Potassium Acetate 55 meq/Magnesium Sulfate 20 meq/ Calcium Gluconate 10 meq/ Multivitamins 10 ml/Chromium/ Copper/Manganese/ Seleni/Zn 0.5 ml/ Insulin Human Regular 35 unit/ Total Parenteral Nutrition/Amino Acids/Dextrose/ Fat Emulsion Intravenous 1,920 ml @ 80 mls/hr TPN CONT IV Last administered on 08/14/19at 22:10; Start 08/14/19 at 22:00; Stop 08/15/19 at 21:59; Status DC Dexamethasone Sodium Phosphate (Decadron) 4 mg STK-MED ONCE .ROUTE ; Start 08/15/19 at 10:56; Stop 08/15/19 at 10:57; Status DC Ondansetron HCl (Zofran) 4 mg STK-MED ONCE .ROUTE ; Start 08/15/19 at 10:56; Stop 08/15/19 at 10:57; Status DC Rocuronium [place] (Zemuron) 50 mg STK-MED ONCE .ROUTE ; Start 08/15/19 at 10:56; Stop 08/15/19 at 10:57; Status DC Fentanyl Citrate (Fentanyl 2ml Vial) 100 mcg STK-MED ONCE .ROUTE ; Start 08/15/19 at 10:56; Stop 08/15/19 at 10:57; Status DC Bupivacaine HCl/ Epinephrine Bitart (Sensorcain-Epi 0.5%-1:[id number] Mpf) 30 ml STK-MED ONCE .ROUTE Last administered on 08/15/19at 12:01; Start 08/15/19 at 10:58; Stop 08/15/19 at 10:58; Status DC Cellulose (Surgicel Hemostat 2x14) 1 each STK-MED ONCE .ROUTE ; Start 08/15/19 at 10:58; Stop 08/15/19 at 10:59; Status DC Iohexol (Omnipaque 300 Mg/ml) 50 ml STK-MED ONCE .ROUTE ; Start 08/15/19 at 10:58; Stop 08/15/19 at 10:59; Status DC Cellulose (Surgicel Hemostat 4x8) 1 each STK-MED ONCE .ROUTE ; Start 08/15/19 at 10:58; Stop 08/15/19 at 10:59; Status DC Bisacodyl (Dulcolax Supp) 10 mg STK-MED ONCE .ROUTE ; Start 08/15/19 at 10:59; Stop 08/15/19 at 10:59; Status DC Heparin Sodium (Porcine) 1000 unit/Sodium Chloride 1,001 ml @ 1,001 mls/hr 1X ONCE IRR ; Start 08/15/19 at 12:00; Stop 08/15/19 at 12:59; Status DC Propofol 20 ml @ As Directed STK-MED ONCE IV ; Start 08/15/19 at 11:05; Stop 08/15/19 at 11:05; Status DC Sevoflurane (Ultane) 90 ml STK-MED ONCE IH ; Start 08/15/19 at 11:05; Stop 08/15/19 at 11:05; Status DC Sevoflurane (Ultane) 60 ml STK-MED ONCE IH ; Start 08/15/19 at 12:26; Stop 08/15/19 at 12:27; Status DC Propofol 20 ml @ As Directed STK-MED ONCE IV ; Start 08/15/19 at 12:26; Stop 08/15/19 at 12:27; Status DC Phenylephrine HCl (PHENYLEPHRINE in 0.9% NACL PF) 1 mg STK-MED ONCE IV ; Start 08/15/19 at 12:34; Stop 08/15/19 at 12:34; Status DC Heparin Sodium (Porcine) (Heparin Sodium) 5,000 unit Q12HR SQ Last administered on 08/24/19at 20:57; Start 08/15/19 at 21:00; Stop 08/25/19 at 09:59; Status DC Sodium Chloride (Normal Saline Flush) 3 ml QSHIFT PRN IV AFTER MEDS AND BLOOD DRAWS; Start 08/15/19 at 13:45 Naloxone HCl (Narcan) 0.4 mg PRN Q2MIN PRN IV SEE INSTRUCTIONS Last administered on 09/24/19at 15:15; Start 08/15/19 at 13:45 Sodium Chloride 1,000 ml @ 25 mls/hr Q24H IV Last administered on 09/13/19at 13:37; Start 08/15/19 at 13:37; Stop 09/16/19 at 13:09; Status DC Naloxone HCl (Narcan) 0.4 mg PRN Q2MIN PRN IV SEE INSTRUCTIONS; Start 08/15/19 at 14:30; Status UNV Sodium Chloride 1,000 ml @ 25 mls/hr Q24H IV ; Start 08/15/19 at 14:30; Status UNV Hydromorphone HCl 30 ml @ 0 mls/hr CONT PRN PRN IV PER PROTOCOL Last administered on 08/20/19at 16:08; Start 08/15/19 at 14:30; Stop 08/22/19 at 08:55; Status DC Potassium Acetate 55 meq/Magnesium Sulfate 20 meq/ Calcium Gluconate 10 meq/ Multivitamins 10 ml/Chromium/ Copper/Manganese/ Seleni/Zn 0.5 ml/ Insulin Human Regular 35 unit/ Total Parenteral Nutrition/Amino Acids/Dextrose/ Fat Emulsion Intravenous 1,920 ml @ 80 mls/hr TPN CONT IV Last administered on 08/15/19at 22:01; Start 08/15/19 at 22:00; Stop 08/16/19 at 21:59; Status DC Bumetanide (Bumex) 2 mg [id number] IV Last administered on 08/19/19at 13:50; Start 08/16/19 at 14:00; Stop 08/20/19 at 14:10; Status DC Meropenem 1 gm/ Sodium Chloride 100 ml @ 200 mls/hr Q8HRS IV Last administered on 09/09/19at 05:53; Start 08/16/19 at 14:00; Stop 09/09/19 at 09:31; Status DC Potassium Acetate 55 meq/Magnesium Sulfate 20 meq/ Calcium Gluconate 10 meq/ Multivitamins 10 ml/Chromium/ Copper/Manganese/ Seleni/Zn 0.5 ml/ Insulin Human Regular 35 unit/ Total Parenteral Nutrition/Amino Acids/Dextrose/ Fat Emulsion Intravenous 1,920 ml @ 80 mls/hr TPN CONT IV Last administered on 08/16/19at 22:02; Start 08/16/19 at 22:00; Stop 08/17/19 at 21:59; Status DC Hydromorphone HCl (Dilaudid Standard ENVIRONMENT ARTIST) 12 mg STK-MED ONCE IV ; Start 08/15/19 at 14:35; Stop 08/16/19 at 13:53; Status DC Artificial Tears (Artificial Tears) 1 drop PRN Q15MIN PRN OU DRY EYE Last administered on 10/03/19at 03:38; Start 08/17/19 at 05:30 Hydromorphone HCl (Dilaudid Standard ENVIRONMENT ARTIST) 12 mg STK-MED ONCE IV ; Start 08/16/19 at 12:05; Stop 08/17/19 at 09:15; Status DC Potassium Acetate 65 meq/Magnesium Sulfate 20 meq/ Calcium Gluconate 10 meq/ Multivitamins 10 ml/Chromium/ Copper/Manganese/ Seleni/Zn 0.5 ml/ Insulin Human Regular 30 unit/ Total Parenteral Nutrition/Amino Acids/Dextrose/ Fat Emulsion Intravenous 1,920 ml @ 80 mls/hr TPN CONT IV Last administered on 08/17/19at 22:22; Start 08/17/19 at 22:00; Stop 08/18/19 at 21:59; Status DC Cyclobenzaprine HCl (Flexeril) 10 mg PRN Q6HRS PRN PO MUSCLE SPASMS; Start 08/18/19 at 10:45 Potassium Acetate 55 meq/Magnesium Sulfate 20 meq/ Calcium Gluconate 10 meq/ Mu ltivitamins 10 ml/Chromium/ Copper/Manganese/ Seleni/Zn 0.5 ml/ Insulin Human Regular 30 unit/ Total Parenteral Nutrition/Amino Acids/Dextrose/ Fat Emulsion Intravenous 1,920 ml @ 80 mls/hr TPN CONT IV Last administered on 08/19/19at 01:00; Start 08/18/19 at 22:00; Stop 08/19/19 at 21:59; Status DC Magnesium Sulfate 50 ml @ 25 mls/hr 1X ONCE IV Last administered on 08/18/19at 17:18; Start 08/18/19 at 12:45; Stop 08/18/19 at 14:44; Status DC Potassium Chloride/Water 100 ml @ 100 mls/hr 1X ONCE IV Last administered on 08/19/19at 11:27; Start 08/19/19 at 12:00; Stop 08/19/19 at 12:59; Status DC Hydromorphone HCl (Dilaudid Standard ENVIRONMENT ARTIST) 12 mg STK-MED ONCE IV ; Start 08/17/19 at 10:50; Stop 08/19/19 at 11:02; Status DC Hydromorphone HCl (Dilaudid Standard ENVIRONMENT ARTIST) 12 mg STK-MED ONCE IV ; Start 08/18/19 at 13:47; Stop 08/19/19 at 11:03; Status DC Potassium Acetate 30 meq/Magnesium Sulfate 20 meq/ Calcium Gluconate 10 meq/ Multivitamins 10 ml/Chromium/ Copper/Manganese/ Seleni/Zn 0.5 ml/ Insulin Human Regular 30 unit/ Potassium Chloride 30 meq/ Total Parenteral Nutrition/Amino Acids/Dextrose/ Fat Emulsion Intravenous 1,920 ml @ 80 mls/hr TPN CONT IV Last administered on 08/19/19at 22:34; Start 08/19/19 at 22:00; Stop 08/20/19 at 21:59; Status DC Potassium Chloride/Water 100 ml @ 100 mls/hr Q1H IV Last administered on 08/20/19at 13:05; Start 08/20/19 at 07:00; Stop 08/20/19 at 10:59; Status DC Magnesium Sulfate 50 ml @ 25 mls/hr 1X ONCE IV Last administered on 08/20/19at 10:34; Start 08/20/19 at 10:30; Stop 08/20/19 at 12:29; Status DC Potassium Chloride 75 meq/ Magnesium Sulfate 20 meq/Calcium Gluconate 10 meq/ Multivitamins 10 ml/Chromium/ Copper/Manganese/ Seleni/Zn 0.5 ml/ Insulin Human Regular 30 unit/ Total Parenteral Nutrition/Amino Acids/Dextrose/ Fat Emulsion Intravenous 1,920 ml @ 80 mls/hr TPN CONT IV Last administered on 08/20/19at 21:51; Start 08/20/19 at 22:00; Stop 08/21/19 at 22:00; Status DC Potassium Chloride 75 meq/ Magnesium Sulfate 20 meq/Calcium Gluconate 10 meq/ Multivitamins 10 ml/Chromium/ Copper/Manganese/ Seleni/Zn 0.5 ml/ Insulin Human Regular 25 unit/ Total Parenteral Nutrition/Amino Acids/Dextrose/ Fat Emulsion Intravenous 1,920 ml @ 80 mls/hr TPN CONT IV Last administered on 08/21/19at 22:04; Start 08/21/19 at 22:00; Stop 08/22/19 at 21:59; Status DC Hydromorphone HCl (Dilaudid) 0.4 mg PRN Q4HRS PRN IVP PAIN Last administered on 08/22/19at 10:57; Start 08/22/19 at 09:00; Stop 08/22/19 at 18:59; Status DC Micafungin Sodium 100 mg/Dextrose 100 ml @ 100 mls/hr Q24H IV Last administered on 09/13/19at 12:17; Start 08/22/19 at 11:00; Stop 09/14/19 at 09:59; Status DC Daptomycin 485 mg/ Sodium Chloride 50 ml @ 100 mls/hr Q24H IV Last administered on 08/29/19at 13:10; Start 08/22/19 at 11:00; Stop 08/30/19 at 07:44; Status DC Potassium Chloride 75 meq/ Magnesium Sulfate 15 meq/Calcium Gluconate 8 meq/ Multivitamins 10 ml/Chromium/ Copper/Manganese/ Seleni/Zn 0.5 ml/ Insulin Human Regular 25 unit/ Total Parenteral Nutrition/Amino Acids/Dextrose/ Fat Emulsion Intravenous 1,920 ml @ 80 mls/hr TPN CONT IV Last administered on 08/22/19at 23:08; Start 08/22/19 at 22:00; Stop 08/23/19 at 21:59; Status DC Haloperidol Lactate (Haldol Inj) 3 mg 1X ONCE IVP Last administered on 08/22/19at 14:37; Start 08/22/19 at 14:30; Stop 08/22/19 at 14:31; Status DC Hydromorphone HCl (Dilaudid) 1 mg PRN Q4HRS PRN IVP PAIN Last administered on 09/05/19at 06:25; Start 08/22/19 at 19:00; Stop 09/05/19 at 17:10; Status DC Potassium Chloride 75 meq/ Magnesium Sulfate 15 meq/Calcium Gluconate 8 meq/ Multivitamins 10 ml/Chromium/ Copper/Manganese/ Seleni/Zn 0.5 ml/ Insulin Human Regular 20 unit/ Total Parenteral Nutrition/Amino Acids/Dextrose/ Fat Emulsion Intravenous 1,920 ml @ 80 mls/hr TPN CONT IV Last administered on 08/23/19at 22:10; Start 08/23/19 at 22:00; Stop 08/24/19 at 21:59; Status DC Lidocaine HCl (Buffered Lidocaine 1%) 3 ml STK-MED ONCE .ROUTE ; Start 08/24/19 at 11:31; Stop 08/24/19 at 11:31; Status DC Lidocaine HCl (Buffered Lidocaine 1%) 3 ml STK-MED ONCE .ROUTE ; Start 08/24/19 at 12:28; Stop 08/24/19 at 12:29; Status DC Lidocaine HCl (Buffered Lidocaine 1%) 6 ml 1X ONCE INJ Last administered on 08/24/19at 12:53; Start 08/24/19 at 12:45; Stop 08/24/19 at 12:46; Status DC Potassium Chloride 75 meq/ Magnesium Sulfate 15 meq/Calcium Gluconate 8 meq/ Multivitamins 10 ml/Chromium/ Copper/Manganese/ Seleni/Zn 0.5 ml/ Insulin Human Regular 20 unit/ Total Parenteral Nutrition/Amino Acids/Dextrose/ Fat Emulsion Intravenous 1,920 ml @ 80 mls/hr TPN CONT IV Last administered on 08/24/19at 22:00; Start 08/24/19 at 22:00; Stop 08/25/19 at 21:59; Status DC Potassium Chloride 75 meq/ Magnesium Sulfate 15 meq/Calcium Gluconate 8 meq/ Multivitamins 10 ml/Chromium/ Copper/Manganese/ Seleni/Zn 0.5 ml/ Insulin Human Regular 15 unit/ Total Parenteral Nutrition/Amino Acids/Dextrose/ Fat Emulsion Intravenous 1,920 ml @ 80 mls/hr TPN CONT IV Last administered on 08/25/19at 22:28; Start 08/25/19 at 22:00; Stop 08/26/19 at 21:59; Status DC Vecuronium [place] (Norcuron Bolus) 6 mg PRN Q6HRS PRN IV VENT ASYNCHRONY; Start 08/25/19 at 19:15; Stop 08/25/19 at 19:35; Status DC Bumetanide (Bumex) 2 mg 1X ONCE IV Last administered on 08/25/19at 22:09; Start 08/25/19 at 19:45; Stop 08/25/19 at 19:46; Status DC Lidocaine HCl (Buffered Lidocaine 1%) 3 ml STK-MED ONCE .ROUTE ; Start 08/26/19 at 07:59; Stop 08/26/19 at 07:59; Status DC Midazolam HCl (Versed) 5 mg STK-MED ONCE .ROUTE ; Start 08/26/19 at 08:36; Stop 08/26/19 at 08:36; Status DC Fentanyl Citrate (Fentanyl 5ml Vial) 250 mcg STK-MED ONCE .ROUTE ; Start 08/26/19 at 08:36; Stop 08/26/19 at 08:37; Status DC Lidocaine HCl (Buffered Lidocaine 1%) 3 ml 1X ONCE IJ Last administered on 08/26/19at 09:30; Start 08/26/19 at 09:15; Stop 08/26/19 at 09:16; Status DC Midazolam HCl (Versed) 5 mg 1X ONCE IV Last administered on 08/26/19at 09:30; Start 08/26/19 at 09:15; Stop 08/26/19 at 09:16; Status DC Fentanyl Citrate (Fentanyl 5ml Vial) 250 mcg 1X ONCE IV Last administered on 08/26/19at 09:30; Start 08/26/19 at 09:15; Stop 08/26/19 at 09:16; Status DC Bumetanide (Bumex) 2 mg DAILY IV Last administered on 09/05/19at 08:07; Start 08/26/19 at 10:00; Stop 09/05/19 at 17:15; Status DC Potassium Chloride 75 meq/ Magnesium Sulfate 15 meq/ Multivitamins 10 ml/Ch romium/ Copper/Manganese/ Seleni/Zn 0.5 ml/ Insulin Human Regular 15 unit/ Total Parenteral Nutrition/Amino Acids/Dextrose/ Fat Emulsion Intravenous 1,920 ml @ 80 mls/hr TPN CONT IV Last administered on 08/26/19at 21:59; Start 08/26/19 at 22:00; Stop 08/27/19 at 21:59; Status DC Metoclopramide HCl (Reglan Vial) 10 mg PRN Q3HRS PRN IVP NAUSEA/VOMITING-3rd choice Last administered on 09/01/19at 04:25; Start 08/27/19 at 16:45 Potassium Chloride 75 meq/ Magnesium Sulfate 15 meq/ Multivitamins 10 ml/Chromium/ Copper/Manganese/ Seleni/Zn 0.5 ml/ Insulin Human Regular 15 unit/ Total Parenteral Nutrition/Amino Acids/Dextrose/ Fat Emulsion Intravenous 1,920 ml @ 80 mls/hr TPN CONT IV Last administered on 08/27/19at 22:41; Start 08/27/19 at 22:00; Stop 08/28/19 at 21:59; Status DC Magnesium Sulfate 50 ml @ 25 mls/hr 1X ONCE IV Last administered on 08/28/19at 10:44; Start 08/28/19 at 09:00; Stop 08/28/19 at 10:59; Status DC Potassium Chloride/Water 100 ml @ 100 mls/hr 1X ONCE IV Last administered on 08/28/19at 09:37; Start 08/28/19 at 09:00; Stop 08/28/19 at 09:59; Status DC Duloxetine HCl (Cymbalta) 30 mg DAILY PO Last administered on 08/29/19at 09:48; Start 08/28/19 at 14:00; Stop 08/31/19 at 10:25; Status DC Potassium Chloride 80 meq/ Magnesium Sulfate 20 meq/ Multivitamins 10 ml/Chromium/ Copper/Manganese/ Seleni/Zn 0.5 ml/ Insulin Human Regular 15 unit/ Total Parenteral Nutrition/Amino Acids/Dextrose/ Fat Emulsion Intravenous 1,920 ml @ 80 mls/hr TPN CONT IV Last administered on 08/28/19at 21:42; Start at 22:00; Stop 08/29/19 at 21:59; Status DC Potassium Chloride 80 meq/ Magnesium Sulfate 20 meq/ Multivitamins 10 ml/Chromiu m/ Copper/Manganese/ Seleni/Zn 0.5 ml/ Insulin Human Regular 15 unit/ Total Parenteral Nutrition/Amino Acids/Dextrose/ Fat Emulsion Intravenous 1,920 ml @ 80 mls/hr TPN CONT IV Last administered on 08/29/19at 22:20; Start 08/29/19 at 22:00; Stop 08/30/19 at 21:59; Status DC Lidocaine HCl (Buffered Lidocaine 1%) 3 ml STK-MED ONCE .ROUTE ; Start 08/30/19 at 09:54; Stop 08/30/19 at 09:55; Status DC Hydromorphone HCl (Dilaudid Standard ENVIRONMENT ARTIST) 12 mg STK-MED ONCE IV ; Start 08/19/19 at 15:50; Stop 08/30/19 at 11:24; Status DC Potassium Chloride 80 meq/ Magnesium Sulfate 20 meq/ Multivitamins 10 ml/Chromium/ Copper/Manganese/ Seleni/Zn 0.5 ml/ Insulin Human Regular 15 unit/ Total Parenteral Nutrition/Amino Acids/Dextrose/ Fat Emulsion Intravenous 1,920 ml @ 80 mls/hr TPN CONT IV Last administered on 08/30/19at 21:40; Start 08/30/19 at 22:00; Stop 08/31/19 at 21:59; Status DC Lidocaine HCl (Buffered Lidocaine 1%) 6 ml 1X ONCE INJ Last administered on 08/30/19at 14:15; Start 08/30/19 at 14:15; Stop 08/30/19 at 14:16; Status DC Potassium Chloride 80 meq/ Magnesium Sulfate 20 meq/ Multivitamins 10 ml/Chromium/ Copper/Manganese/ Seleni/Zn 1 ml/ Insulin Human Regular 15 unit/ Total Parenteral Nutrition/Amino Acids/Dextrose/ Fat Emulsion Intravenous 1,920 ml @ 80 mls/hr TPN CONT IV Last administered on 08/31/19at 22:04; Start 08/31/19 at 22:00; Stop 09/01/19 at 21:59; Status DC Potassium Chloride/Water 100 ml @ 100 mls/hr 1X ONCE IV Last administered on 09/01/19at 11:34; Start 09/01/19 at 11:00; Stop 09/01/19 at 11:59; Status DC Potassium Chloride 90 meq/ Magnesium Sulfate 20 meq/ Multivitamins 10 ml/Chromium/ Copper/Manganese/ Seleni/Zn 1 ml/ Insulin Human Regular 15 unit/ Total Parenteral Nutrition/Amino Acids/Dextrose/ Fat Emulsion Intravenous 1,920 ml @ 80 mls/hr TPN CONT IV Last administered on 09/01/19at 22:57; Start 09/01/19 at 22:00; Stop 09/02/19 at 21:59; Status DC Potassium Chloride 90 meq/ Magnesium Sulfate 20 meq/ Multivitamins 10 ml/Chromium/ Copper/Manganese/ Seleni/Zn 1 ml/ Insulin Human Regular 15 unit/ Total Parenteral Nutrition/Amino Acids/Dextrose/ Fat Emulsion Intravenous 1,920 ml @ 80 mls/hr TPN CONT IV Last administered on 09/02/19at 22:48; Start 09/02/19 at 22:00; Stop 09/03/19 at 21:59; Status DC Potassium Chloride 90 meq/ Magnesium Sulfate 20 meq/ Multivitamins 10 ml/Chromium/ Copper/Manganese/ Seleni/Zn 1 ml/ Insulin Human Regular 15 unit/ Total Parenteral Nutrition/Amino Acids/Dextrose/ Fat Emulsion Intravenous 1,890 ml @ 78.75 mls/ hr TPN CONT IV Last administered on 09/03/19at 22:15; Start 09/03/19 at 22:00; Stop 09/04/19 at 21:59; Status DC Linezolid/Dextrose 300 ml @ 300 mls/hr Q12HR IV Last administered on 09/06/19at 21:08; Start 09/04/19 at 09:00; Stop 09/07/19 at 08:11; Status DC Daptomycin 450 mg/ Sodium Chloride 50 ml @ 100 mls/hr Q24H IV Last administered on 09/07/19at 09:25; Start 09/04/19 at 09:00; Stop 09/08/19 at 08:30; Status DC Potassium Chloride 90 meq/ Magnesium Sulfate 20 meq/ Multivitamins 10 ml/Chromium/ Copper/Manganese/ Seleni/Zn 1 ml/ Insulin Human Regular 15 unit/ Total Parenteral Nutrition/Amino Acids/Dextrose/ Fat Emulsion Intravenous 1,890 ml @ 78.75 mls/ hr TPN CONT IV Last administered on 09/04/19at 21:34; Start 09/04/19 at 22:00; Stop 09/05/19 at 21:59; Status DC Lorazepam (Ativan Inj) 2 mg STK-MED ONCE .ROUTE ; Start 09/04/19 at 14:58; Stop 09/04/19 at 14:58; Status DC Metoprolol Tartrate (Lopressor Vial) 5 mg 1X ONCE IVP Last administered on 09/04/19at 15:31; Start 09/04/19 at 15:15; Stop 09/04/19 at 15:16; Status DC Lorazepam (Ativan Inj) 2 mg 1X ONCE IVP Last administered on 09/04/19at 15:30; Start 09/04/19 at 15:15; Stop 09/04/19 at 15:16; Status DC Enoxaparin Sodium (Lovenox 40mg Syringe) 40 mg Q24H SQ Last administered on 09/23/19at 17:44; Start 09/04/19 at 17:00; Stop 09/25/19 at 06:50; Status DC Lorazepam (Ativan Inj) 1 mg PRN Q4HRS PRN IVP ANXIETY / AGITATION MILD-MOD Last administered on 09/18/19at 15:55; Start 09/04/19 at 19:15; Stop 09/20/19 at 11:45; Status DC Lorazepam (Ativan Inj) 2 mg PRN Q4HRS PRN IVP ANXIETY / AGITATION SEVERE Last administered on 09/19/19at 07:55; Start 09/04/19 at 19:15; Stop 09/20/19 at 11:45; Status DC Fentanyl Citrate (Fentanyl 2ml Vial) 50 mcg PRN Q4HRS PRN IVP SEVERE PAIN Last administered on 10/01/19at 05:15; Start 09/05/19 at 13:15; Stop 10/02/19 at 09 :29; Status DC Fentanyl Citrate (Fentanyl 2ml Vial) 25 mcg PRN Q4HRS PRN IVP MODERATE PAIN Last administered on 10/01/19at 00:27; Start 09/05/19 at 13:15; Stop 10/02/19 at 09:30; Status DC Potassium Chloride 90 meq/ Magnesium Sulfate 20 meq/ Multivitamins 10 ml/Chromium/ Copper/Manganese/ Seleni/Zn 1 ml/ Insulin Human Regular 15 unit/ Total Parenteral Nutrition/Amino Acids/Dextrose/ Fat Emulsion Intravenous 1,890 ml @ 78.75 mls/ hr TPN CONT IV Last administered on 09/05/19at 22:18; Start 09/05/19 at 22:00; Stop 09/06/19 at 21:59; Status DC Furosemide (Lasix) 40 mg 1X ONCE IVP Last administered on 09/05/19at 21:51; Start 09/05/19 at 21:45; Stop 09/05/19 at 21:48; Status DC Albumin Human 100 ml @ 100 mls/hr 1X PRN PRN IV SEE COMMENTS; Start 09/06/19 a t 01:30 Furosemide (Lasix) 40 mg [id number] IVP Last administered on 09/21/19at 08:04; Start 09/06/19 at 14:00; Stop 09/21/19 at 13:07; Status DC Potassium Chloride 90 meq/ Magnesium Sulfate 20 meq/ Multivitamins 10 ml/Chromium/ Copper/Manganese/ Seleni/Zn 1 ml/ Insulin Human Regular 15 unit/ Total Parenteral Nutrition/Amino Acids/Dextrose/ Fat Emulsion Intravenous 1,800 ml @ 75 mls/hr TPN CONT IV Last administered on 09/06/19at 22:31; Start 09/06/19 at 22:00; Stop 09/07/19 at 21:59; Status DC Potassium Chloride 90 meq/ Magnesium Sulfate 20 meq/ Multivitamins 10 ml/Chromium/ Copper/Manganese/ Seleni/Zn 1 ml/ Insulin Human Regular 15 unit/ Total Parenteral Nutrition/Amino Acids/Dextrose/ Fat Emulsion Intravenous 1,800 ml @ 75 mls/hr TPN CONT IV Last administered on 09/07/19at 22:28; Start 09/07/19 at 22:00; Stop 09/08/19 at 21:59; Status DC Potassium Chloride 110 meq/ Magnesium Sulfate 20 meq/ Multivitamins 10 ml/Chromium/ Copper/Manganese/ Seleni/Zn 1 ml/ Insulin Human Regular 15 unit/ Total Parenteral Nutrition/Amino Acids/Dextrose/ Fat Emulsion Intravenous 1,800 ml @ 75 mls/hr TPN CONT IV Last administered on 09/08/19at 22:01; Start 09/08/19 at 22:00; Stop 09/09/19 at 21:59; Status DC Saliva Substitute (Biotene Moisturizing Mouth) 2 spray PRN Q15MIN PRN PO DRY MOUTH; Start 09/08/19 at 11:00 Potassium Chloride 110 meq/ Magnesium Sulfate 20 meq/ Multivitamins 10 ml/Chromium/ Copper/Manganese/ Seleni/Zn 1 ml/ Insulin Human Regular 15 unit/ Total Parenteral Nutrition/Amino Acids/Dextrose/ Fat Emulsion Intravenous 1,800 ml @ 75 mls/hr TPN CONT IV Last administered on 09/09/19at 22:21; Start 09/09/19 at 22:00; Stop 09/10/19 at 21:59; Status DC Potassium Chloride 110 meq/ Magnesium Sulfate 20 meq/ Multivitamins 10 ml/Chromium/ Copper/Manganese/ Seleni/Zn 1 ml/ Insulin Human Regular 15 unit/ Total Parenteral Nutrition/Amino Acids/Dextrose/ Fat Emulsion Intravenous 1,800 ml @ 75 mls/hr TPN CONT IV Last administered on 09/10/19at 22:04; Start 09/10/19 at 22:00; Stop 09/11/19 at 21:59; Status DC Potassium Chloride 110 meq/ Magnesium Sulfate 20 meq/ Multivitamins 10 ml/Chromium/ Copper/Manganese/ Seleni/Zn 1 ml/ Insulin Human Regular 15 unit/ Total Parenteral Nutrition/Amino Acids/Dextrose/ Fat Emulsion Intravenous 1,800 ml @ 75 mls/hr TPN CONT IV Last administered on 09/11/19at 22:48; Start 09/11/19 at 22:00; Stop 09/12/19 at 21:59; Status DC Potassium Chloride 70 meq/ Magnesium Sulfate 20 meq/ Multivitamins 10 ml/Chromium/ Copper/Manganese/ Seleni/Zn 1 ml/ Insulin Human Regular 15 unit/ Total Parenteral Nutrition/Amino Acids/Dextrose/ Fat Emulsion Intravenous 1,800 ml @ 75 mls/hr TPN CONT IV Last administered on 09/12/19at 21:39; Start 09/12/19 at 22:00; Stop 09/13/19 at 21:59; Status DC Meropenem 500 mg/ Sodium Chloride 50 ml @ 100 mls/hr Q6HRS IV Last ad ministered on 09/14/19at 06:02; Start 09/12/19 at 18:00; Stop 09/14/19 at 09:59; Status DC Barium Sulfate (Varibar Thin Liquid Apple) 148 gm 1X ONCE PO ; Start 09/13/19 at 11:45; Stop 09/13/19 at 11:49; Status DC Potassium Chloride 70 meq/ Magnesium Sulfate 20 meq/ Multivitamins 10 ml/Chromium/ Copper/Manganese/ Seleni/Zn 1 ml/ Insulin Human Regular 15 unit/ Total Parenteral Nutrition/Amino Acids/Dextrose/ Fat Emulsion Intravenous 1,800 ml @ 75 mls/hr TPN CONT IV Last administered on 09/13/19at 22:27; Start 09/13/19 at 22:00; Stop 09/14/19 at 21:59; Status DC Piperacillin Sod/ Tazobactam Sod 3.375 gm/Sodium Chloride 50 ml @ 100 mls/hr Q6HRS IV Last administered on 09/22/19at 06:10; Start 09/14/19 at 12:00; Stop 09/22/19 at 07:26; Status DC Potassium Chloride 70 meq/ Magnesium Sulfate 20 meq/ Multivitamins 10 ml/Chromium/ Copper/Manganese/ Seleni/Zn 1 ml/ Insulin Human Regular 15 unit/ Total Parenteral Nutrition/Amino Acids/Dextrose/ Fat Emulsion Intravenous 1,800 ml @ 75 mls/hr TPN CONT IV Last administered on 09/14/19at 22:03; Start 09/14/19 at 22:00; Stop 09/15/19 at 21:59; Status DC Potassium Chloride 70 meq/ Magnesium Sulfate 20 meq/ Multivitamins 10 ml/Chromium/ Copper/Manganese/ Seleni/Zn 1 ml/ Insulin Human Regular 15 unit/ Total Parenteral Nutrition/Amino Acids/Dextrose/ Fat Emulsion Intravenous 1,800 ml @ 75 mls/hr TPN CONT IV Last administered on 09/15/19at 22:33; Start 09/15/19 at 22:00; Stop 09/16/19 at 21:59; Status DC Potassium Chloride 70 meq/ Magnesium Sulfate 20 meq/ Multivitamins 10 ml/Chromium/ Copper/Manganese/ Seleni/Zn 1 ml/ Insulin Human Regular 15 unit/ Total Parenteral Nutrition/Amino Acids/Dextrose/ Fat Emulsion Intravenous 1,800 ml @ 75 mls/hr TPN CONT IV Last administered on 09/16/19at 23:13; Start 09/16/19 at 22:00; Stop 09/17/19 at 21:59; Status DC Potassium Chloride 80 meq/ Magnesium Sulfate 20 meq/ Multivitamins 10 ml/Chromium/ Copper/Manganese/ Seleni/Zn 1 ml/ Insulin Human Regular 15 unit/ Total Parenteral Nutrition/Amino Acids/Dextrose/ Fat Emulsion Intravenous 1,800 ml @ 75 mls/hr TPN CONT IV Last administered on 09/17/19at 22:30; Start 09/17/19 at 22:00; Stop 09/18/19 at 21:59; Status DC Potassium Chloride 80 meq/ Magnesium Sulfate 20 meq/ Multivitamins 10 ml/Chromium/ Copper/Manganese/ Seleni/Zn 1 ml/ Insulin Human Regular 15 unit/ Total Parenteral Nutrition/Amino Acids/Dextrose/ Fat Emulsion Intravenous 1,800 ml @ 75 mls/hr TPN CONT IV Last administered on 09/18/19at 21:54; Start 09/18/19 at 22:00; Stop 09/19/19 at 21:59; Status DC Potassium Chloride/Water 100 ml @ 100 mls/hr 1X ONCE IV Last administered on 09/19/19at 10:15; Start 09/19/19 at 10:00; Stop 09/19/19 at 10:59; Status DC Potassium Chloride 90 meq/ Magnesium Sulfate 20 meq/ Multivitamins 10 ml/Chromium/ Copper/Manganese/ Seleni/Zn 1 ml/ Insulin Human Regular 20 unit/ Total Parenteral Nutrition/Amino Acids/Dextrose/ Fat Emulsion Intravenous 1,800 ml @ 75 mls/hr TPN CONT IV Last administered on 09/19/19at 22:28; Start 09/19/19 at 22:00; Stop 09/20/19 at 21:59; Status DC Potassium Chloride 90 meq/ Magnesium Sulfate 20 meq/ Multivitamins 10 ml/Chromium/ Copper/Manganese/ Seleni/Zn 1 ml/ Insulin Human Regular 20 unit/ Total Parenteral Nutrition/Amino Acids/Dextrose/ Fat Emulsion Intravenous 1,800 ml @ 75 mls/hr TPN CONT IV Last administered on 09/20/19at 22:08; Start 09/20/19 at 22:00; Stop 09/21/19 at 21:59; Status DC Lorazepam (Ativan Inj) 0.25 mg PRN Q4HRS PRN IVP ANXIETY / AGITATION Last administered on 10/01/19at 02:25; Start 09/21/19 at 07:30 Potassium Chloride 90 meq/ Magnesium Sulfate 20 meq/ Multivitamins 10 ml/Chromium/ Copper/Manganese/ Seleni/Zn 1 ml/ Insulin Human Regular 20 unit/ Total Parenteral Nutrition/Amino Acids/Dextrose/ Fat Emulsion Intravenous 1,800 ml @ 75 mls/hr TPN CONT IV Last administered on 09/21/19at 23:13; Start 09/21/19 at 22:00; Stop 09/22/19 at 21:59; Status DC Furosemide (Lasix) 40 mg DAILY IVP Last administered on 09/23/19at 11:14; Start 09/21/19 at 13:30; Stop 09/25/19 at 09:12; Status DC Fluoxetine HCl (PROzac) 20 mg QHS PEG Last administered on 10/02/19at 21:32; Start 09/22/19 at 21:00 Fentanyl (Duragesic 50mcg/ Hr Patch) 1 patch Q72H TD Last administered on 09/22/19at 21:22; Start 09/22/19 at 21:00; Stop 10/01/19 at 12:00; Status DC Potassium Chloride 40 meq/ Potassium Acetate 60 meq/Magnesium Sulfate 10 meq/ Multivitamins 10 ml/Chromium/ Copper/Manganese/ Seleni/Zn 1 ml/ Insulin Human Regular 20 unit/ Total Parenteral Nutrition/Amino Acids/Dextrose/ Fat Emulsion Intravenous 1,800 ml @ 75 mls/hr TPN CONT IV Last administered on 09/23/19at 00:03; Start 09/22/19 at 22:00; Stop 09/23/19 at 21:59; Status DC Potassium Acetate 80 meq/Magnesium Sulfate 5 meq/ Multivitamins 10 ml/Chromium/ Copper/Manganese/ Seleni/Zn 1 ml/ Insulin Human Regular 20 unit/ Total Parenteral Nutrition/Amino Acids/Dextrose/ Fat Emulsion Intravenous 1,920 ml @ 80 mls/hr TPN CONT IV Last administered on 09/23/19at 21:59; Start 09/23/19 at 22:00; Stop 09/24/19 at 21:59; Status DC Potassium Acetate 60 meq/Magnesium Sulfate 5 meq/ Multivitamins 10 ml/Chromium/ Copper/Manganese/ Seleni/Zn 1 ml/ Insulin Human Regular 30 unit/ Total Parenteral Nutrition/Amino Acids/Dextrose/ Fat Emulsion Intravenous 1,920 ml @ 80 mls/hr TPN CONT IV Last administered on 09/24/19at 21:54; Start 09/24/19 at 22:00; Stop 09/25/19 at 21:59; Status DC Norepinephrine Bitartrate 8 mg/ Dextrose 258 ml @ 13.332 mls/ hr CONT PRN IV PER PROTOCOL Last administered on 09/25/19at 21:46; Start 09/25/19 at 06:30 Albumin Human 500 ml @ 125 mls/hr 1X ONCE IV Last administered on 09/25/19at 08:10; Start 09/25/19 at 08:15; Stop 09/25/19 at 12:14; Status DC Potassium Acetate 40 meq/Magnesium Sulfate 5 meq/ Multivitamins 10 ml/Chromium/ Copper/Manganese/ Seleni/Zn 1 ml/ Insulin Human Regular 30 unit/ Total Parenteral Nutrition/Amino Acids/Dextrose/ Fat Emulsion Intravenous 1,920 ml @ 80 mls/hr TPN CONT IV Last administered on 09/25/19at 22:23; Start 09/25/19 at 22:00; Stop 09/26/19 at 21:59; Status DC Meropenem 1 gm/ Sodium Chloride 100 ml @ 200 mls/hr Q8HRS IV ; Start 09/25/19 at 14:00; Status Cancel Meropenem 1 gm/ Sodium Chloride 100 ml @ 200 mls/hr Q8HRS IV Last administered on 09/25/19at 11:04; Start 09/25/19 at 10:00; Stop 09/25/19 at 13:00; Status DC Meropenem 1 gm/ Sodium Chloride 100 ml @ 200 mls/hr Q12HR IV Last administered on 10/03/19at 08:31; Start 09/25/19 at 21:00 Sodium Chloride 1,000 ml @ 1,000 mls/hr 1X ONCE IV Last administered on 09/25/19at 11:06; Start 09/25/19 at 10:45; Stop 09/25/19 at 11:44; Status DC Micafungin Sodium 100 mg/Dextrose 100 ml @ 100 mls/hr Q24H IV Last administered on 10/03/19at 10:36; Start 09/25/19 at 11:00 Daptomycin 410 mg/ Sodium Chloride 50 ml @ 100 mls/hr Q24H IV Last administered on 09/27/19at 13:33; Start 09/25/19 at 14:00; Stop 09/28/19 at 08:30; Status DC Midazolam HCl (Versed) 2 mg STK-MED ONCE .ROUTE ; Start 09/25/19 at 14:47; Stop 09/25/19 at 14:48; Status DC Fentanyl Citrate (Fentanyl 2ml Vial) 100 mcg STK-MED ONCE .ROUTE ; Start 09/25/19 at 14:47; Stop 09/25/19 at 14:48; Status DC Flumazenil (Romazicon) 0.5 mg STK-MED ONCE IV ; Start 09/25/19 at 14:48; Stop 09/25/19 at 14:48; Status DC Naloxone HCl (Narcan) 0.4 mg STK-MED ONCE .ROUTE ; Start 09/25/19 at 14:48; Stop 09/25/19 at 14:48; Status DC Lidocaine HCl (Lidocaine 1% 20ml Vial) 20 ml STK-MED ONCE .ROUTE ; Start 09/25/19 at 14:48; Stop 09/25/19 at 14:48; Status DC Midazolam HCl (Versed) 2 mg 1X ONCE IV Last administered on 09/25/19at 15:28; Start 09/25/19 at 15:00; Stop 09/25/19 at 15:01; Status DC Fentanyl Citrate (Fentanyl 2ml Vial) 100 mcg 1X ONCE IV Last administered on 09/25/19at 15:28; Start 09/25/19 at 15:00; Stop 09/25/19 at 15:01; Status DC Lidocaine HCl (Lidocaine 1% 20ml Vial) 20 ml 1X ONCE INJ Last administered on 09/25/19at 15:30; Start 09/25/19 at 15:00; Stop 09/25/19 at 15:01; Status DC Sodium Chloride 1,000 ml @ 100 mls/hr Q10H IV Last administered on 10/03/19at 03:38; Start 09/25/19 at 20:00 Sodium Bicarbonate (Sodium Bicarb Adult 8.4% Syr) 50 meq 1X ONCE IV Last administered on 09/25/19at 21:47; Start 09/25/19 at 22:00; Stop 09/25/19 at 22:01; Status DC Potassium Acetate 40 meq/Magnesium Sulfate 5 meq/ Multivitamins 10 ml/Chromium/ Copper/Manganese/ Seleni/Zn 1 ml/ Insulin Human Regular 30 unit/ Total Parenteral Nutrition/Amino Acids/Dextrose/ Fat Emulsion Intravenous 1,920 ml @ 80 mls/hr TPN CONT IV Last administered on 09/26/19at 22:28; Start 09/26/19 at 22:00; Stop 09/27/19 at 21:59; Status DC Sodium Chloride 500 ml @ 500 mls/hr 1X ONCE IV Last administered on 09/27/19at 06:39; Start 09/27/19 at 06:45; Stop 09/27/19 at 07:44; Status DC Potassium Acetate 40 meq/Magnesium Sulfate 5 meq/ Multivitamins 10 ml/Chromium/ Copper/Manganese/ Seleni/Zn 1 ml/ Insulin Human Regular 30 unit/ Total Parenteral Nutrition/Amino Acids/Dextrose/ Fat Emulsion Intravenous 1,920 ml @ 80 mls/hr TPN CONT IV Last administered on 09/27/19at 22:03; Start 09/27/19 at 22:00; Stop 09/28/19 at 21:59; Status DC Metoprolol Tartrate (Lopressor Vial) 5 mg PRN Q6HRS PRN IVP HYPERTENSION Last administered on 10/01/19at 04:03; Start 09/28/19 at 09:00 Potassium Acetate 40 meq/Magnesium Sulfate 5 meq/ Multivitamins 10 ml/Chromium/ Copper/Manganese/ Seleni/Zn 1 ml/ Insulin Human Regular 30 unit/ Total Parenteral Nutrition/Amino Acids/Dextrose/ Fat Emulsion Intravenous 1,920 ml @ 80 mls/hr TPN CONT IV Last administered on 09/28/19at 21:26; Start 09/28/19 at 22:00; Stop 09/29/19 at 21:59; Status DC Potassium Acetate 40 meq/Magnesium Sulfate 5 meq/ Multivitamins 10 ml/Chromium/ Copper/Manganese/ Seleni/Zn 1 ml/ Insulin Human Regular 30 unit/ Total Parenteral Nutrition/Amino Acids/Dextrose/ Fat Emulsion Intravenous 1,920 ml @ 80 mls/hr TPN CONT IV Last administered on 09/29/19at 23:23; Start 09/29/19 at 22:00; Stop 09/30/19 at 21:59; Status DC Potassium Acetate 40 meq/Magnesium Sulfate 5 meq/ Multivitamins 10 ml/Chromium/ Copper/Manganese/ Seleni/Zn 1 ml/ Insulin Human Regular 30 unit/ Total Parenteral Nutrition/Amino Acids/Dextrose/ Fat Emulsion Intravenous 1,920 ml @ 80 mls/hr TPN CONT IV Last administered on 09/30/19at 21:35; Start 09/30/19 at 22:00; Stop 10/01/19 at 21:59; Status DC Furosemide (Lasix) 20 mg 1X ONCE IVP Last administered on 10/01/19at 06:26; Start 10/01/19 at 06:15; Stop 10/01/19 at 06:16; Status DC Methylprednisolone Sodium Succinate (SOLU-Medrol 125MG VIAL) 125 mg 1X ONCE IV Last administered on 10/01/19at 06:26; Start 10/01/19 at 06:15; Stop 10/01/19 at 06:16; Status DC Albuterol/ Ipratropium (Duoneb) 3 ml Q4HRS NEB Last administered on 10/03/19at 07:53; Start 10/01/19 at 08:00 Fentanyl Citrate 30 ml @ 0 mls/hr CONT PRN IV SEE PROTOCOL Last administered on 10/02/19at 22:19; Start 10/01/19 at 06:00 Propofol 100 ml @ 0 mls/hr CONT PRN IV SEE PROTOCOL Last administered on 10/03/19at 13:10; Start 10/01/19 at 06:00 Fentanyl Citrate (Fentanyl 2ml Vial) 25 mcg PRN Q1HR PRN IV SEE COMMENTS; Start 10/01/19 at 06:00 Fentanyl Citrate (Fentanyl 2ml Vial) 50 mcg PRN Q1HR PRN IV SEE COMMENTS; Start 10/01/19 at 06:00 Chlorhexidine Gluconate (Peridex) 15 ml BID MM ; Start 10/01/19 at 09:00; Stop 10/01/19 at 07:58; Status DC Potassium Acetate 40 meq/Magnesium Sulfate 5 meq/ Multivitamins 10 ml/Chromium/ Copper/Manganese/ Seleni/Zn 1 ml/ Insulin Human Regular 30 unit/ Total Parenteral Nutrition/Amino Acids/Dextrose/ Fat Emulsion Intravenous 1,920 ml @ 80 mls/hr TPN CONT IV Last administered on 10/01/19at 21:19; Start 10/01/19 at 22:00; Stop 10/02/19 at 21:59; Status DC Acetylcysteine (Mucomyst 20% Resp Treatment) 600 mg BID NEB Last administered on 10/03/19at 07:53; Start 10/01/19 at 21:00 Magnesium Sulfate 100 ml @ 25 mls/hr 1X ONCE IV Last administered on 10/01/19at 15:48; Start 10/01/19 at 15:45; Stop 10/01/19 at 19:44; Status DC Potassium Acetate 40 meq/Magnesium Sulfate 5 meq/ Multivitamins 10 ml/Chromium/ Copper/Manganese/ Seleni/Zn 1 ml/ Insulin Human Regular 30 unit/ Total Parenteral Nutrition/Amino Acids/Dextrose/ Fat Emulsion Intravenous 1,920 ml @ 80 mls/hr TPN CONT IV Last administered on 10/02/19at 21:35; Start 10/02/19 at 22:00; Stop 10/03/19 at 21:59 Potassium Chloride/Water 100 ml @ 100 mls/hr Q1H IV Last administered on 10/03/19at 08:31; Start 10/03/19 at 07:00; Stop 10/03/19 at 08:59; Status DC Potassium Acetate 40 meq/Magnesium Sulfate 5 meq/ Multivitamins 10 ml/Chromium/ Copper/Manganese/ Seleni/Zn 1 ml/ Insulin Human Regular 30 unit/ Total Parenteral Nutrition/Amino Acids/Dextrose/ Fat Emulsion Intravenous 1,920 ml @ 80 mls/hr TPN CONT IV ; Start 10/03/19 at 22:00; Stop 10/04/19 at 21:59 Lidocaine HCl (Buffered Lidocaine 1%) 3 ml Navitell-MyClean ONCE .ROUTE ; Start 10/03/19 at 12:14; Stop 10/03/19 at 12:14; Status DC Lidocaine HCl (Buffered Lidocaine 1%) 3 ml 1X ONCE IJ Last administered on 10/03/19at 13:11; Start 10/03/19 at 13:00; Stop 10/03/19 at 13:01; Status DC Active Scripts Active Reported Bisoprolol Fumarate 5 Mg Tablet 10 Mg PO DAILY Vitals/I & O Vital Sign - Last 24 Hours 10/02/19 10/02/19 10/02/19 10/02/19 14:00 15:00 16:00 16:00 Temp 97.5 97.5 Pulse 82 80 77 77 Resp 20 20 20 B/P (MAP) 138/79 (98) 152/78 (102) 126/68 (87) Pulse Ox 99 99 99 O2 Delivery Ventilator Ventilator Ventilator 10/02/19 10/02/19 10/02/19 10/02/19 16:00 16:27 17:00 17:55 Pulse 81 Resp 20 B/P (MAP) 144/75 (98) Pulse Ox 100 100 100 O2 Delivery Mechanical Ventilator Ventilator Ventilator Ventilator 10/02/19 10/02/19 10/02/19 10/02/19 18:00 19:00 20:00 20:00 Pulse 79 79 94 Resp 20 20 B/P (MAP) 130/70 (90) 144/75 (98) Pulse Ox 99 99 O2 Delivery Ventilator Ventilator Mechanical Ventilator 10/02/19 10/02/19 10/02/19/14/20 20:00 20:15 21:00 22:00 Temp 97.3 97.3 Pulse 94 88 92 Resp 24 20 20 B/P (MAP) 130/98 (109) 126/67 (86) 154/78 (103) Pulse Ox 99 100 100 100 O2 Delivery Ventilator Ventilator Ventilator Ventilator 10/02/19 10/02/19 10/02/19 10/02/19 22:19 22:49 23:00 23:42 Pulse 87 Resp 20 B/P (MAP) 145/77 (99) Pulse Ox 100 100 100 100 O2 Delivery Ventilator Ventilator Ventilator Ventilator 10/03/19 10/03/19 10/03/19 10/03/19 00:00 00:00 00:01 01:00 Temp 98.2 98.2 Pulse 89 89 88 Resp 20 B/P (MAP) 154/72 (99) 143/72 (95) Pulse Ox 100 100 O2 Delivery Mechanical Ventilator Ventilator Ventilator 10/03/19 10/03/19 10/03/19 10/03/19 02:00 03:00 03:37 04:00 Pulse 85 88 95 Resp B/P (MAP) 165/75 (105) 159/79 (105) Pulse Ox 100 100 100 O2 Delivery Ventilator Ventilator Ventilator 10/03/19 10/03/19 10/03/19 10/03/19 04:00 04:00 05:00 06:00 Temp 98.3 98.3 Pulse 95 93 97 Resp 20 B/P (MAP) 142/68 (92) 134/65 (88) 144/71 (95) Pulse Ox 100 99 99 O2 Delivery Ventilator Mechanical Ventilator Ventilator Ventilator 10/03/19 10/03/19 10/03/19 10/03/19 07:00 07:34 07:54 08:00 Temp 98.5 98.5 Pulse 90 98 Resp B/P (MAP) 145/69 (94) 140/75 (96) Pulse Ox 99 99 99 O2 Delivery Ventilator Mechanical Ventilator Ventilator Ventilator 10/03/19 10/03/19 10/03/19 10/03/19 08:00 09:00 10:00 11:00 Pulse 122 113 105 Resp B/P (MAP) 150/76 (100) 126/70 (88) 124/67 (86) Pulse Ox 100 100 100 O2 Delivery Ventilator Ventilator Tracheal Collar 10/03/19 10/03/19 10/03/19 10/03/19 12:00 12:00 12:00 13:10 Temp 99.0 99.0 Pulse 115 120 Resp 31 24 B/P (MAP) 140/74 (96) 154/80 (104) Pulse Ox 98 97 O2 Delivery Trach Collar Tracheal Collar Tracheal Collar 10/03/19 10/03/19 10/03/19 10/03/19 13:15 13:20 13:25 13:30 Pulse 121 123 120 122 Resp 22 22 22 22 B/P (MAP) 160/85 (110) 161/93 (115) 159/91 (113) 147/93 (111) Pulse Ox 98 98 98 98 O2 Delivery Tracheal Collar Tracheal Collar Tracheal Collar Tracheal Collar 10/03/19 10/03/19 13:35 13:40 Pulse 119 121 Resp 22 22 B/P (MAP) 142/83 (102) 150/86 (107) Pulse Ox 98 97 O2 Delivery Tracheal Collar Tracheal Collar Intake and Output 10/02/19 10/02/19 10/03/19 15:00 23:00 07:00 Intake Total 1881.81 ml 1471.6 ml Output Total 776 ml 505 ml 580 ml Balance -776 ml 1376.81 ml 891.6 ml Hemodynamically unstable?: No Is patient in severe pain?: No Is NPO status required?: No NIELS MCGILL MD Oct 03, 2019 14:00
--- NOTE | 2019-10-03 16:08 | NUR ---
Patient arrived in room from IR accompanied by IR RN and zachary. Patient remains alert and oriented, in a small amount of pain from the chest tube which is draining orange/serous fluids. Updated patient's daughter, Marce, of chest tube placement. Jamaal at bedside with the patient.
[2019-10-03] MEDS ORDERED: AMINO ACID IV SCH ×8 (22:00)
[2019-10-03] MEDS ORDERED: TOTAL PARENTERAL NUTRITION IV SCH ×8 (22:00)
[2019-10-03] MEDS ORDERED: DEXTROSE 70% IV SCH ×8 (22:00)
[2019-10-03] MEDS ORDERED: [UNRECOGNIZED DRUG - OTHER] IV SCH ×8 (22:00)
[2019-10-04] VITALS (23 sets, daily range): BP systolic 103–168; BP diastolic 54–88
[2019-10-04] MEDS: ONDANSETRON PF 4 MG/2 ML VIAL. IV PRN ×2 (02:30→08:21)
[2019-10-04] MEDS: INSULIN LISPRO 300 UNITS/3 ML VIAL. SQ SCH ×4 (06:00→18:00)
[2019-10-04 06:34] LABS: BASO % 0 % (0-3); EOS # 0.1 x10^3/uL (0.0-0.7); EOS % 1 % (0-3); HEMATOCRIT 28.9 % (36.0-47.0); HEMOGLOBIN 9.7 g/dL (12.0-15.5); LYMPH # 1.3 x10^3/uL (1.0-4.8); LYMPH % 16 % (24-48); MEAN CORPUSCULAR HEMOGLOBIN 29 pg (25-35); MEAN CORPUSCULAR HGB CONC 34 g/dL (31-37); MEAN CORPUSCULAR VOLUME 86 fL (79-100); MONO # 0.3 x10^3/uL (0.0-1.1); MONO % 4 % (0-9); NEUT # 6.6 x10^3/uL (1.8-7.7); NEUT % 79 % (31-73); PLATELET COUNT 432 x10^3/uL (140-400); RED BLOOD COUNT 3.38 x10^6/uL (3.50-5.40); RED CELL DISTRIBUTION WIDTH 18.6 % (11.5-14.5); WHITE BLOOD COUNT 8.4 x10^3/uL (4.0-11.0)
[2019-10-04 06:43] LABS: CALCIUM 8.9 mg/dL (8.5-10.1); CREATININE 0.7 mg/dL (0.6-1.0); GFR 88.9; MAGNESIUM 1.5 mg/dL (1.8-2.4); POTASSIUM 3.6 mmol/L (3.5-5.1)
[2019-10-04] MEDS: IV NORMAL SALINE 1000ML BAG 1,000 ML IV SCH (07:30)
[2019-10-04 07:49] LABS: BASE EXCESS ABG -4 mmol/L (-3-3); HCO3 ABG 20 mmol/L (21-28); PCO2 ABG 34 mmHg (35-46); PO2 ABG 121 mmHg (75-108); SAT O2 ABG 98 % (92-99)
[2019-10-04] MEDS: IPRATRPIUM/ALBUTEROL 0.5/2.5MG 3 ML NEBU. NEB SCH ×5 (08:00→23:30)
[2019-10-04] MEDS ORDERED: MAGNESIUM SULFATE 2GM 50 ML IV ONE (08:15)
--- NOTE | 2019-10-04 08:17 | PDOC ---
Infectious Disease Note Subjective Subjective Patient better. A little nausea. pain ok Continues to have blood stained drainage from drains no fevers last 24 hours ROS ROS o/w neg Vital Sign Vital Signs Vital Signs Date Time Temp Pulse Resp B/P (MAP) Pulse Ox O2 Delivery O2 Flow Rate FiO2 10/04/19 06:00 116 20 140/74 (96) 99 Ventilator 10/04/19 04:00 99.1 99.1 10/03/19 20:29 9.0 Physical Exam PHYSICAL EXAM GENERAL: More Alert and looks comfortable HEENT: NGT in place. Oral mucosa dry NECK: Tracheostomy LUNGS: Diminished aeration bases, no accessory muscle use - CT on left with clear fluid HEART: S1, S2, tachy, regular ABDOMEN: Mild distention, bowel sounds present, soft, grimaces to palpation Right lateral side drainage bag, 3 drains with bloodstained drainage. 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 LUE-PICC (09/15) without signs of complications - art line without complications Labs Lab Laboratory Tests Test 10/03/19 08:10 10/03/19 11:47 10/03/19 17:24 10/04/19 01:26 O2 Saturation 97 % (92-99) Arterial Blood pH 7.46 (7.35-7.45) Arterial Blood pCO2 at Patient Temp 31 mmHg (35-46) Arterial Blood pO2 at Patient Temp 117 mmHg (75-108) Arterial Blood HCO3 22 mmol/L (21-28) Arterial Blood Base Excess -2 mmol/L (-3-3) FiO2 35 Glucose (Fingerstick) 121 mg/dL (70-99) 105 mg/dL (70-99) 113 mg/dL (70-99) Test 10/04/19 06:20 White Blood Count 8.4 x10^3/uL (4.0-11.0) Red Blood Count 3.38 x10^6/uL (3.50-5.40) Hemoglobin 9.7 g/dL (12.0-15.5) Hematocrit 28.9 % (36.0-47.0) Mean Corpuscular Volume 86 fL (79-100) Mean Corpuscular Hemoglobin 29 pg (25-35) Mean Corpuscular Hemoglobin Concent 34 g/dL (31-37) Red Cell Distribution Width 18.6 % (11.5-14.5) Platelet Count 432 x10^3/uL (140-400) Neutrophils (%) (Auto) 79 % (31-73) Lymphocytes (%) (Auto) 16 % (24-48) Monocytes (%) (Auto) 4 % (0-9) Eosinophils (%) (Auto) 1 % (0-3) Basophils (%) (Auto) 0 % (0-3) Neutrophils # (Auto) 6.6 x10^3/uL (1.8-7.7) Lymphocytes # (Auto) 1.3 x10^3/uL (1.0-4.8) Monocytes # (Auto) 0.3 x10^3/uL (0.0-1.1) Eosinophils # (Auto) 0.1 x10^3/uL (0.0-0.7) Basophils # (Auto) 0.0 x10^3/uL (0.0-0.2) Sodium Level 141 mmol/L (136-145) Potassium Level 3.6 mmol/L (3.5-5.1) Chloride Level 108 mmol/L (98-107) Carbon Dioxide Level 23 mmol/L (21-32) Anion Gap 10 (6-14) Blood Urea Nitrogen 28 mg/dL (7-20) Creatinine 0.7 mg/dL (0.6-1.0) Estimated GFR (Cockcroft-Gault) 88.9 Glucose Level 129 mg/dL (70-99) Glucose (Fingerstick) 122 mg/dL (70-99) Calcium Level 8.9 mg/dL (8.5-10.1) Magnesium Level 1.5 mg/dL (1.8-2.4) Triglycerides Level 251 mg/dL (0-150) Micro 6/7 GRAM STAIN Final Final GRAM NEGATIVE RODS:MODERATE SQUAMOUS EPI CELL:NOT APPLICABLE PMN (WBCs):RARE YEAST:MODERATE Unless otherwise specified, Testing Performed by: [address] [address] For Inquires, the Physician may contact the Microbiology department at [phone] ANAEROBIC-AEROBIC CULTURE Preliminary Preliminary MANY GRAM NEGATIVE RODS on 09/27/19 at 1158 FINAL ID= [[email or web address]] PSEUDOMONAS AERUGINOSA ANTIMICROBIAL SUSCEPTIBILITY Preliminary Comment NEG ALEXANDRA 56 PSEUDOMONAS AERUGINOSA ANTIBIOTIC RESULT INTERPRETATION AMIKACIN <=16 S AZTREONAM >16 R CEFTAZIDIME >16 R CIPROFLOXACIN <=0.25 S CEFEPIME 16 I CEFTAZIDIME/AVIBACTAM <=4 S GENTAMICIN <=2 S CONTINUED ON NEXT PAGE --- --------- RUN DATE: 09/29/19 [facility] *LIVE* PAGE 2 RUN TIME: 1016 Specimen Inquiry SPEC: [id number] PATIENT: SCOTT CUELLAR [id number] (Continued) Procedure Result ANTIMICROBIAL SUSCEPTIBILITY Preliminary (continued) LEVOFLOXACIN <=0.5 S MEROPENEM <=1 S PIPERACILLIN/TAZOBACTAM 64 S TOBRAMYCIN <=2 S Unless otherwise specified, Testing Performed by: [facility] [address] [place] [address] For Inquires, the Physician may contact the Microbiology department at [phone] CT Scan 09/23 IMPRESSION: 1. Removal of the percutaneous pigtail drainage catheters since the prior exam. Sequela of pancreatitis with extensive pseudocysts again demonstrated, the right-sided collections are slightly larger since the prior exam, the left-sided collections are stable. See above. 2. Moderate to large left pleural effusion with atelectasis and collapse of most of the left lower lobe, stable. Small right pleural effusion is stable. 3. Gallstone. Objective Assessment Patient with prolonged hospitalization Multiple medical problems Multiple surgical procedures S/p CT on left 10/02 890 ml overnight 09/24 fluid cult PSAE (MDRO),yeast moderate s/p drain times three CXR with Left lung white-out 09/30 ? effusion PSA 10/02 in sputum Acute hypoxic resp failure on 35 % and 5 PEEP Transaminitis - mild Fever improving Acute pancreatitis with persistent necrosis CT a/p 07/27 Increased ascites. 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 Sequela of pancreatitis with extensive pseudocysts again demonstrated, the right-sided collections are slightly larger since the prior exam, the left-sided collections are stable. Cholelithiasis with thickening of the gallbladder wall. Leucocytosis - better JUANA,Hyperkalemia, Metabolic acidosis off dialysis Acute hypoxic resp failure ,bilateral pleural effusion and atelectasis hypocalcemia Prediabetes HTN s/p trach S/p thoracenteis 08/29 Plan Plan of Care Sputum from 09/30 - growing PSA - may be colonization Continue meropenem, has MDRP PSAE September 24 from abd cont micafungin September 24 Follow-up cultures fluid for yeast IR eval abd drains Monitor a.m. labs - CMP/CBC General surgery following Monitor drain output Maintain aspiration precaution Supportive care MANISHA micro [phone] Critically ill D/w nursing WILLY BARAKAT MD Oct 04, 2019 08:17
[2019-10-04] MEDS: PANTOPRAZOLE IV PUSH 40 MG VIAL. IVP SCH (08:18)
[2019-10-04] MEDS: MAGNESIUM SULFATE 2GM 50 ML IV PRN (08:21)
[2019-10-04] MEDS: ACETYLCYSTEINE 20% for RESP TX 600 MG/3 ML. NEB SCH ×2 (08:55→20:36)
[2019-10-04 08:57] LABS: FIO2 ABG 35%
[2019-10-04] MEDS: MEROPENEM 1 GM in IV NORMAL SALINE 100ML 100 ML IV SCH ×2 (09:27→21:30)
--- NOTE | 2019-10-04 09:40 | PDOC ---
PROGRESS NOTES Chief Complaint Chief Complaint A/P: Acute hypoxic Respiratory failure requiring mechanical ventilation (now extubated for several days but still with tracheostomy) Tracheostomy bilateral pleural effusions/pulm edema s/p Throacentesis on 10/03/2019 Severe Acute gallstone pancreatitis (not a surgical candidate at this time) with necrosis Acute kidney failure now requiring dialysis Gallstones (Calculus of gallbladder with acute cholecystitis without ob struction) HTN Intractable pain Intractable nausea Covid 19 negative. Acute on chronic anemia EEG: No seizure activityFever - better currently - intermittent could be from underlying pancreatitis blood cults 08/21 - neg so far ? Ileus with vomiting Abd distention - U/S and CT reviewed s/p 0.4 L of opaque, debris-containing ascites was removed 08/23 Acute pancreatitis with persistent necrosis - 08/14 status post KAYLIN drain placement + C paropsilosis. s/p additional drains 08/25 Anemia - S/p PRBCs Cholelithiasis with thickening of the gallbladder wall. Leucocytosis improving JUANA, hyperkalemia, Metabolic acidosis off dialysis hypocalcemia Prediabetes HTN s/p trach ESRD on HD Hyperglycemia FEN - PPX - SCDs, off lovenox currently, high risk for thrombosis but in light of her recent anemia and need for transfusion the risks do not outweigh benefits at this time. will continue to evaluate on a daily basis FULL CODE Dispo - ICU, critically ill History of Present Illness History of Present Illness 09/25: IR placed drain on 09/24. 4u PRBC after Hb drop. Hb 8.8 today. Off Levophed this morning. T-max 100.3. Much more lethargic today. CXR with left sided diffuse infiltrates. 09/26: Tachycardic overnight into the 140s. NGT clamped. On BIPAP currently. Drains with serosanguinous discharge. WBC 8, Tmax 99.6F. 09/27: Seen on trach shield in ICU. Hypertensive and tachycardic. Labs stable. blood stained drainage from drains. Afebrile. 09/28: Seen on trach shield in ICU. She is a bit confused, drowsy, but when sitting up is conversational and confusion somewhat clears. She is asking for more pain medication. Stable drains, still very tachy.Na 147 09/29: Patient vomited overnight. Aspirated. Tried to pull her trach out, she was told she would without her trach, she said "I know, I just want to go home". Hb 7.6. Afebrile, still very tachycardic. 1055ml out of right sided KAYLIN drain 09/30: Overnight hypoxic, on BIPAP. CXR with left sided white out lung. Significant mucous plug suctioned by RT with improvement in her ABG after 2 hours this morning. Not really active, tired, lethargic. 890ml out of drains past 24 hours. On vent. D/w daughter bedside. 10/01: Still on vent overnight with copious pulmonary drainage on suctioning. Labs stable, UOP stable 1L. Drain output still significant with 1505mL. She has shown her phone password [phone] and made it clear she does not want her daughters to access her phone at this time. 6:15: Patient quite frail, she has had such a lengthy hospital stay that she is certainly depressed and as documented 3 days ago is wanting to go home. Most likely patient is also tired of being hospitalized with an end point no where in sight. Reassurance and encouragement provided during my visit. Plans for thoracentesis later in the day 16: No acute events reported overnight, case discussed with nursing staff patient in no acute distress, complaints of the abdomimal pain during my visit, patient is quite depressed, reassurance has been provided, discussed with nursing staff at bedside, replace electrolytes 09/23/2019 Patient seen and examined on telemetry floor today This morning I had a couple of discussions with case management The issue is the patient will not wear her trach cap Without that she cannot advance her diet and is currently supposed to be on honey thick liquids I was going to talk to the patient about wearing her trach But when I arrived to the room she was lying on the floor with several nurses and therapist around Apparently she did walk to the end of the meyer then back and then collapsed onto the floor She had a bowel movement when this all happened Appears to be critically ill again Very shaky tremulous anxious has a stare in her eyes We got her back in bed I am extremely concerned about her long-term prognosis again 09/22/2019 Patient seen and examined in the ICU She remains critically ill is is extremely weak Chart reviewed Discussed with RN We decided to try some Prozac as she does seem depressed On IV TPN Still has NG tube 09/21/2019 Patient seen and examined in the ICU She remains critically ill We have been trying to hold off on her Ativan for the past 24 hours She is a little more awake but shaky and agitated and anxious seems depressed Discussed with RN Chart reviewed 09/20/2019 Patient seen and examined in the ICU She is a little more alert today but still quite ill Appears clammy and pale and depressed/anxious Discussed with RN Chart reviewed 09/19/2019 Patient seen and examined in the ICU She appears extremely ill She is tachypneic at 35 respirations per minute and tachycardic at 132 bpm She is extremely encephalopathic and shaky She appears clammy Chart reviewed Discussed with RN Prognosis extremely guarded at best 09/18/2019 Patient still in ICU Resting with no apparent distress Chart reviewed 09/17/2019 Patient seen and examined in the ICU She is wiping her face with a cough Discussed with RN Chart reviewed We hope to get her out of the ICU later today if possible 09/16/2019 Patient seen and examined in the ICU once again She is back on NG suction On IV Zosyn Has IV TPN Sedated with Precedex but anxious still Appears somewhat clammy and pale Chart reviewed Discussed with RN She remains critically ill 09/15/2019 Patient seen and examined in the ICU She has an NG that is clamped we are hoping to start some clear liquids but she looks quite ill She is on IV TPN Meropenem changed to IV Zosyn (agree) She has Lind to bedside drainage She is semi-sedated with Precedex Chart reviewed Discussed with RN She remains critically ill Seen bedside. Hb 8. She was just a bit hypoxic, had a mucous plug suctioned. Able to vocalize well with speaking valve, tells me we are being very hard on her and she would like to be drugged back to sleep. She wants to wake up and feel better. On trach shield, T max 100.4. afebrile this a.m. 09/13/2019 Patient seen and examined in the ICU She is up in the chair very frail trying to talk a little shaky Discussed with RN Chart reviewed 09/12/2019 Patient seen and examined in the ICU Patient up in the chair Having a severe coughing episode with a lot of phlegm coming out of her tracheostomy Discussed with RN Discussed with physical therapy Chart reviewed 09/10,. feels well, has been out of room in wheelchair no complaint, still weak, some with not wanting to wear her valve on trach cont other, may be able to work with speech tomorrow, juan ramon OK to try, 09/09, anxiety is up today, she dislikes the valve still, shower and outside today . 09/08 she doesnt want to wear her passy-fantasma valve, discussed str and plan with her. speech following, needs swallow study, but needs to wear her valve longer, cont current able to walk some, walker 09/07 stronger, better, we discussed better oral care she would like to try swallow study, wants to try to eat, speech is following 09/07/2019 She remains in the ICU sitting up and working with OT, getting better if limit pain meds, may do better off the vent, Nurses trying to suction her, that is also improved, Chart reviewed 09/06/2019 Patient seen and examined in the ICU She had an episode yesterday of tachycardia and severe agitation we gave her some Ativan After that she seemed to have stroke symptoms but now that the Ativan has wore off her stroke symptoms have resolved She is on IV meropenem and daptomycin and micafungin Chart reviewed Discussed with RN Patient is still critically ill BRIEF OPERATIVE NOTE Pre-Op Diagnosis Pancreatitis with pseudocysts, suspected infection Post-Op Diagnosis same Procedure Performed CT abdominal Drains x 3 Surgeon Tesfaye Anesthesia Type: Conscious Sedation Findings 3 abdominal drains, 14F, with turbid pancreatic fluid and necrotic debris in each. Complications No immediate 08/26: Patient today somewhat restless and having bilious secretions from ET tube, imaging studies ordered, discussed with franchise consultant. Pretty poor prognosis, hopefully is not a fistula, poor surgical candidate. 08/27: Imaging with no acute events, she seems more stable today compared to yesterday. Encouraged as much activity as possible patient at high risk for severe depression. Vitals Vitals Vital Signs Date Time Temp Pulse Resp B/P (MAP) Pulse Ox O2 Delivery O2 Flow Rate FiO2 10/04/19 08:30 95 Tracheal Collar 10/04/19 08:00 97.7 108 20 140/76 (97) 97.7 10/03/19 20:29 9.0 Physical Exam Physical Exam GENERAL: More Alert and looks comfortable HEENT: NGT in place. Oral mucosa dry NECK: Tracheostomy LUNGS: Diminished aeration bases, no accessory muscle use - CT on left with clear fluid HEART: S1, S2, tachy, regular ABDOMEN: Mild distention, bowel sounds present, soft, grimaces to palpation Right lateral side drainage bag, 3 drains with bloodstained drainage. 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0) Red Blood Count 3.38 x10^6/uL (3.50-5.40) Hemoglobin 9.7 g/dL (12.0-15.5) Hematocrit 28.9 % (36.0-47.0) Mean Corpuscular Volume 86 fL (79-100) Mean Corpuscular Hemoglobin 29 pg (25-35) Mean Corpuscular Hemoglobin Concent 34 g/dL (31-37) Red Cell Distribution Width 18.6 % (11.5-14.5) Platelet Count 432 x10^3/uL (140-400) Neutrophils (%) (Auto) 79 % (31-73) Lymphocytes (%) (Auto) 16 % (24-48) Monocytes (%) (Auto) 4 % (0-9) Eosinophils (%) (Auto) 1 % (0-3) Basophils (%) (Auto) 0 % (0-3) Neutrophils # (Auto) 6.6 x10^3/uL (1.8-7.7) Lymphocytes # (Auto) 1.3 x10^3/uL (1.0-4.8) Monocytes # (Auto) 0.3 x10^3/uL (0.0-1.1) Eosinophils # (Auto) 0.1 x10^3/uL (0.0-0.7) Basophils # (Auto) 0.0 x10^3/uL (0.0-0.2) Sodium Level 141 mmol/L (136-145) Potassium Level 3.6 mmol/L (3.5-5.1) Chloride Level 108 mmol/L (98-107) Carbon Dioxide Level 23 mmol/L (21-32) Anion Gap 10 (6-14) Blood Urea Nitrogen 28 mg/dL (7-20) Creatinine 0.7 mg/dL (0.6-1.0) Estimated GFR (Cockcroft-Gault) 88.9 Glucose Level 129 mg/dL (70-99) Calcium Level 8.9 mg/dL (8.5-10.1) Magnesium Level 1.5 mg/dL (1.8-2.4) Triglycerides Level 251 mg/dL (0-150) Test 10/04/19 08:00 O2 Saturation 98 % (92-99) Arterial Blood pH 7.39 (7.35-7.45) Arterial Blood pCO2 at Patient Temp 34 mmHg (35-46) Arterial Blood pO2 at Patient Temp 121 mmHg (75-108) Arterial Blood HCO3 20 mmol/L (21-28) Arterial Blood Base Excess -4 mmol/L (-3-3) FiO2 35% Assessment and Plan Assessmemt and Plan Problems Medical Problems: (1) Acute pancreatitis Status: Acute (2) Cholelithiasis Status: Acute Comment Review of Relevant I have reviewed the following items kolby (where applicable) has been applied. Labs Laboratory Tests Test 10/02/19 10:45 10/02/19 12:11 10/02/19 17:52 10/03/19 00:23 O2 Saturation 98 % (92-99) Arterial Blood pH 7.45 (7.35-7.45) Arterial Blood pCO2 at Patient Temp 34 mmHg (35-46) Arterial Blood pO2 at Patient Temp 146 mmHg (75-108) Arterial Blood HCO3 23 mmol/L (21-28) Arterial Blood Base Excess -1 mmol/L (-3-3) FiO2 40 Glucose (Fingerstick) 159 mg/dL (70-99) 129 mg/dL (70-99) 118 mg/dL (70-99) Test 10/03/19 05:45 10/03/19 05:54 10/03/19 08:10 10/03/19 11:47 White Blood Count 8.1 x10^3/uL (4.0-11.0) Red Blood Count 3.28 x10^6/uL (3.50-5.40) Hemoglobin 9.3 g/dL (12.0-15.5) Hematocrit 27.8 % (36.0-47.0) Mean Corpuscular Volume 85 fL (79-100) Mean Corpuscular Hemoglobin 28 pg (25-35) Mean Corpuscular Hemoglobin Concent 34 g/dL (31-37) Red Cell Distribution Width 18.6 % (11.5-14.5) Platelet Count 434 x10^3/uL (140-400) Neutrophils (%) (Auto) 80 % (31-73) Lymphocytes (%) (Auto) 15 % (24-48) Monocytes (%) (Auto) 5 % (0-9) Eosinophils (%) (Auto) 1 % (0-3) Basophils (%) (Auto) 0 % (0-3) Neutrophils # (Auto) 6.4 x10^3/uL (1.8-7.7) Lymphocytes # (Auto) 1.2 x10^3/uL (1.0-4.8) Monocytes # (Auto) 0.4 x10^3/uL (0.0-1.1) Eosinophils # (Auto) 0.1 x10^3/uL (0.0-0.7) Basophils # (Auto) 0.0 x10^3/uL (0.0-0.2) Sodium Level 143 mmol/L (136-145) Potassium Level 3.3 mmol/L (3.5-5.1) Chloride Level 111 mmol/L (98-107) Carbon Dioxide Level 23 mmol/L (21-32) Anion Gap 9 (6-14) Blood Urea Nitrogen 34 mg/dL (7-20) Creatinine 0.7 mg/dL (0.6-1.0) Estimated GFR (Cockcroft-Gault) 88.9 BUN/Creatinine Ratio 49 (6-20) Glucose Level 125 mg/dL (70-99) Calcium Level 8.8 mg/dL (8.5-10.1) Magnesium Level 1.8 mg/dL (1.8-2.4) Total Bilirubin 0.5 mg/dL (0.2-1.0) Aspartate Amino Transf (AST/SGOT) 62 U/L (15-37) Alanine Aminotransferase (ALT/SGPT) 72 U/L (14-59) Alkaline Phosphatase 132 U/L (46-116) Total Protein 4.5 g/dL (6.4-8.2) Albumin 1.1 g/dL (3.4-5.0) Albumin/Globulin Ratio 0.3 (1.0-1.7) Glucose (Fingerstick) 115 mg/dL (70-99) 121 mg/dL (70-99) O2 Saturation 97 % (92-99) Arterial Blood pH 7.46 (7.35-7.45) Arterial Blood pCO2 at Patient Temp 31 mmHg (35-46) Arterial Blood pO2 at Patient Temp 117 mmHg (75-108) Arterial Blood HCO3 22 mmol/L (21-28) Arterial Blood Base Excess -2 mmol/L (-3-3) FiO2 35 Test 10/03/19 17:24 10/04/19 01:26 10/04/19 06:20 10/04/19 08:00 Glucose (Fingerstick) 105 mg/dL (70-99) 113 mg/dL (70-99) 122 mg/dL (70-99) White Blood Count 8.4 x10^3/uL (4.0-11.0) Red Blood Count 3.38 x10^6/uL (3.50-5.40) Hemoglobin 9.7 g/dL (12.0-15.5) Hematocrit 28.9 % (36.0-47.0) Mean Corpuscular Volume 86 fL (79-100) Mean Corpuscular Hemoglobin 29 pg (25-35) Mean Corpuscular Hemoglobin Concent 34 g/dL (31-37) Red Cell Distribution Width 18.6 % (11.5-14.5) Platelet Count 432 x10^3/uL (140-400) Neutrophils (%) (Auto) 79 % (31-73) Lymphocytes (%) (Auto) 16 % (24-48) Monocytes (%) (Auto) 4 % (0-9) Eosinophils (%) (Auto) 1 % (0-3) Basophils (%) (Auto) 0 % (0-3) Neutrophils # (Auto) 6.6 x10^3/uL (1.8-7.7) Lymphocytes # (Auto) 1.3 x10^3/uL (1.0-4.8) Monocytes # (Auto) 0.3 x10^3/uL (0.0-1.1) Eosinophils # (Auto) 0.1 x10^3/uL (0.0-0.7) Basophils # (Auto) 0.0 x10^3/uL (0.0-0.2) Sodium Level 141 mmol/L (136-145) Potassium Level 3.6 mmol/L (3.5-5.1) Chloride Level 108 mmol/L (98-107) Carbon Dioxide Level 23 mmol/L (21-32) Anion Gap 10 (6-14) Blood Urea Nitrogen 28 mg/dL (7-20) Creatinine 0.7 mg/dL (0.6-1.0) Estimated GFR (Cockcroft-Gault) 88.9 Glucose Level 129 mg/dL (70-99) Calcium Level 8.9 mg/dL (8.5-10.1) Magnesium Level 1.5 mg/dL (1.8-2.4) Triglycerides Level 251 mg/dL (0-150) O2 Saturation 98 % (92-99) Arterial Blood pH 7.39 (7.35-7.45) Arterial Blood pCO2 at Patient Temp 34 mmHg (35-46) Arterial Blood pO2 at Patient Temp 121 mmHg (75-108) Arterial Blood HCO3 20 mmol/L (21-28) Arterial Blood Base Excess -4 mmol/L (-3-3) FiO2 35% Laboratory Tests Test 10/03/19 11:47 10/03/19 17:24 10/04/19 01:26 10/04/19 06:20 Glucose (Fingerstick) 121 mg/dL (70-99) 105 mg/dL (70-99) 113 mg/dL (70-99) 122 mg/dL (70-99) White Blood Count 8.4 x10^3/uL (4.0-11.0) Red Blood Count 3.38 x10^6/uL (3.50-5.40) Hemoglobin 9.7 g/dL (12.0-15.5) Hematocrit 28.9 % (36.0-47.0) Mean Corpuscular Volume 86 fL (79-100) Mean Corpuscular Hemoglobin 29 pg (25-35) Mean Corpuscular Hemoglobin Concent 34 g/dL (31-37) Red Cell Distribution Width 18.6 % (11.5-14.5) Platelet Count 432 x10^3/uL (140-400) Neutrophils (%) (Auto) 79 % (31-73) Lymphocytes (%) (Auto) 16 % (24-48) Monocytes (%) (Auto) 4 % (0-9) Eosinophils (%) (Auto) 1 % (0-3) Basophils (%) (Auto) 0 % (0-3) Neutrophils # (Auto) 6.6 x10^3/uL (1.8-7.7) Lymphocytes # (Auto) 1.3 x10^3/uL (1.0-4.8) Monocytes # (Auto) 0.3 x10^3/uL (0.0-1.1) Eosinophils # (Auto) 0.1 x10^3/uL (0.0-0.7) Basophils # (Auto) 0.0 x10^3/uL (0.0-0.2) Sodium Level 141 mmol/L (136-145) Potassium Level 3.6 mmol/L (3.5-5.1) Chloride Level 108 mmol/L (98-107) Carbon Dioxide Level 23 mmol/L (21-32) Anion Gap 10 (6-14) Blood Urea Nitrogen 28 mg/dL (7-20) Creatinine 0.7 mg/dL (0.6-1.0) Estimated GFR (Cockcroft-Gault) 88.9 Glucose Level 129 mg/dL (70-99) Calcium Level 8.9 mg/dL (8.5-10.1) Magnesium Level 1.5 mg/dL (1.8-2.4) Triglycerides Level 251 mg/dL (0-150) Test 10/04/19 08:00 O2 Saturation 98 % (92-99) Arterial Blood pH 7.39 (7.35-7.45) Arterial Blood pCO2 at Patient Temp 34 mmHg (35-46) Arterial Blood pO2 at Patient Temp 121 mmHg (75-108) Arterial Blood HCO3 20 mmol/L (21-28) Arterial Blood Base Excess -4 mmol/L (-3-3) FiO2 35% Microbiology 10/01/19 Gram Stain Evaluation - Final, Resulted 10/01/19 Respiratory Culture - Preliminary, Resulted 09/25/19 Gram Stain - Final, Complete 09/25/19 Aerobic and Anaerobic Culture - Final, Complete 09/25/19 Antimicrobic Susceptibility - Final, Complete 09/25/19 Blood Culture - Final, Complete NO GROWTH AFTER 5 DAYS 09/25/19 Urine Culture - Final, Complete 09/17/19 Gram Stain - Final, Complete 09/17/19 Aerobic Culture - Final, Complete Medications Current Medications Sodium Chloride 1,000 ml @ 1,000 mls/hr Q1H IV Last administered on 07/04/19at 03:00; Start 07/04/19 at 03:00; Stop 07/04/19 at 03:59; Status DC Ondansetron HCl (Zofran) 4 mg 1X ONCE IVP Last administered on 07/04/19at 03:27; Start 07/04/19 at 03:00; Stop 07/04/19 at 03:01; Status DC Morphine Sulfate (Morphine Sulfate) 4 mg 1X ONCE IV ; Start 07/04/19 at 03:00; Stop 07/04/19 at 03:01; Status Cancel Ketorolac Tromethamine (Toradol 30mg Vial) 30 mg 1X ONCE IV Last administered on 07/04/19at 02:54; Start 07/04/19 at 03:00; Stop 07/04/19 at 03:01; Status DC Fentanyl Citrate (Fentanyl 2ml Vial) 25 mcg 1X ONCE IVP Last administered on 07/04/19at 03:23; Start 07/04/19 at 03:30; Stop 07/04/19 at 03:31; Status DC Fentanyl Citrate (Fentanyl 2ml Vial) 100 mcg STK-MED ONCE .ROUTE ; Start 07/04/19 at 03:18; Stop 07/04/19 at 03:18; Status DC Iohexol (Omnipaque 350 Mg/ml) 90 ml 1X ONCE IV Last administered on 07/04/19at 03:25; Start 07/04/19 at 03:30; Stop 07/04/19 at 03:31; Status DC Info (CONTRAST GIVEN -- Rx MONITORING) 1 each PRN DAILY PRN MC SEE COMMENTS; Start 07/04/19 at 03:30; Stop 07/06/19 at 03:29; Status DC Hydromorphone HCl (Dilaudid) 0.5 mg 1X ONCE IV Last administered on 07/04/19at 03:55; Start 07/04/19 at 04:30; Stop 07/04/19 at 04:32; Status DC Ondansetron HCl (Zofran) 4 mg PRN Q8HRS PRN IV NAUSEA/VOMITING 1ST CHOICE; Start 07/04/19 at 05:00; Stop 07/04/19 at 09:27; Status DC Morphine Sulfate (Morphine Sulfate) 2 mg PRN Q2HR PRN IV SEVERE PAIN 7-10 Last administered on 07/05/19at 12:26; Start 07/04/19 at 05:00; Stop 07/05/19 at 14:15; Status DC Sodium Chloride 1,000 ml @ 125 mls/hr Q8H IV Last administered on 07/04/19at 20:56; Start 07/04/19 at 05:00; Stop 07/05/19 at 04:59; Status DC Hydromorphone HCl (Dilaudid) 0.5 mg PRN Q3HRS PRN IV SEVERE PAIN 7-10 Last administered on 07/05/19at 10:06; Start 07/04/19 at 05:00; Stop 07/05/19 at 12:01; Status DC Piperacillin Sod/ Tazobactam Sod 4.5 gm/Sodium Chloride 100 ml @ 200 mls/hr 1X ONCE IV Last administered on 07/04/19at 05:44; Start 07/04/19 at 06:00; Stop 07/04/19 at 06:29; Status DC Ondansetron HCl (Zofran) 4 mg PRN Q4HRS PRN IV NAUSEA/VOMITING 1ST CHOICE Last administered on 10/04/19at 08:21; Start 07/04/19 at 09:30 Insulin Human Lispro (HumaLOG) 0-9 UNITS Q6HRS SQ Last administered on 10/02/19at 12:21; Start 07/04/19 at 09:30 Dextrose (Dextrose 50%-Water Syringe) 12.5 gm PRN Q15MIN PRN IV SEE COMMENTS; Start 07/04/19 at 09:30 Pantoprazole Sodium (PROTONIX VIAL for IV PUSH) 40 mg DAILYAC IVP Last administered on 10/04/19at 08:18; Start 07/04/19 at 11:30 Prochlorperazine Edisylate (Compazine) 10 mg PRN Q6HRS PRN IV NAUSEA/VOMITING, 2nd CHOICE Last administered on 09/28/19at 14:33; Start 07/04/19 at 17:45 Atenolol (Tenormin) 100 mg DAILY PO ; Start 07/05/19 at 09:00; Stop 07/04/19 at 20:08; Status DC Metoprolol Tartrate (Lopressor Vial) 2.5 mg Q6HRS IVP Last administered on 07/05/19at 05:51; Start 07/04/19 at 20:15; Stop 07/05/19 at 10:02; Status DC Metoprolol Tartrate (Lopressor Vial) 5 mg Q6HRS IVP Last administered on 07/14/19at 00:12; Start 07/05/19 at 10:15; Stop 07/16/19 at 08:48; Status DC Hydromorphone HCl (Dilaudid) 1 mg PRN Q3HRS PRN IV SEVERE PAIN 7-10 Last administered on 07/11/19at 05:13; Start 07/05/19 at 12:00; Stop 07/19/19 at 00:25; Status DC Lidocaine HCl (Buffered Lidocaine 1%) 3 ml STK-MED ONCE .ROUTE ; Start 07/05/19 at 12:55; Stop 07/05/19 at 12:56; Status DC Albumin Human 500 ml @ 125 mls/hr 1X ONCE IV Last administered on 07/05/19at 14:33; Start 07/05/19 at 14:30; Stop 07/05/19 at 18:32; Status DC Norepinephrine Bitartrate 8 mg/ Dextrose 258 ml @ 17.299 mls/ hr CONT PRN IV PER PROTOCOL Last administered on 08/02/19at 12:48; Start 07/05/19 at 15:30; Stop 08/05/19 at 09:19; Status DC Sodium Chloride 1,000 ml @ 125 mls/hr Q8H IV Last administered on 07/05/19at 21:04; Start 07/05/19 at 16:00; Stop 07/06/19 at 02:42; Status DC Albumin Human 500 ml @ 125 mls/hr PRN BID PRN IV After every 2L NSS & BP < 90mm Last administered on 09/24/19at 11:40; Start 07/05/19 at 16:00 Iohexol (Omnipaque 300 Mg/ml) 60 ml 1X ONCE IV Last administered on 07/05/19at 17:20; Start 07/05/19 at 17:00; Stop 07/05/19 at 17:01; Status DC Info (CONTRAST GIVEN -- Rx MONITORING) 1 each PRN DAILY PRN MC SEE COMMENTS; Start 07/05/19 at 17:00; Stop 07/07/19 at 16:59; Status DC Meropenem 1 gm/ Sodium Chloride 100 ml @ 200 mls/hr Q8HRS IV Last administered on 07/06/19at 05:45; Start 07/05/19 at 20:00; Stop 07/06/19 at 08:48; Status DC Furosemide (Lasix) 40 mg 1X ONCE IVP Last administered on 07/05/19at 22:12; Start 07/05/19 at 22:30; Stop 07/05/19 at 22:31; Status DC Calcium Chloride 1000 mg/Sodium Chloride 110 ml @ 220 mls/hr 1X ONCE IV Last administered on 07/05/19at 22:11; Start 07/05/19 at 22:30; Stop 07/05/19 at 22:59; Status DC Albuterol Sulfate (Ventolin Neb Soln) 2.5 mg 1X ONCE NEB Last administered on 07/06/19at 00:56; Start 07/05/19 at 22:30; Stop 07/05/19 at 22:31; Status DC Insulin Human Regular (HumuLIN R VIAL) 5 unit 1X ONCE IV Last administered on 07/05/19at 22:14; Start 07/05/19 at 22:30; Stop 07/05/19 at 22:31; Status DC Magnesium Sulfate 50 ml @ 25 mls/hr 1X ONCE IV Last administered on 07/06/19at 02:57; Start 07/06/19 at 03:00; Stop 07/06/19 at 04:59; Status DC Calcium Gluconate 1000 mg/Sodium Chloride 110 ml @ 220 mls/hr 1X ONCE IV Last administered on 07/06/19at 02:46; Start 07/06/19 at 03:00; Stop 07/06/19 at 03:29; Status DC Sodium Chloride 1,000 ml @ 200 mls/hr Q5H IV Last administered on 07/06/19at 02:46; Start 07/06/19 at 03:00; Stop 07/06/19 at 10:21; Status DC Calcium Gluconate 1000 mg/Sodium Chloride 110 ml @ 220 mls/hr 1X ONCE IV Last administered on 07/06/19at 03:21; Start 07/06/19 at 03:30; Stop 07/06/19 at 03:59; Status DC Sodium Bicarbonate 50 meq/Sodium Chloride 1,050 ml @ 75 mls/hr Q14H IV Last administered on 07/10/19at 21:10; Start 07/06/19 at 07:30; Stop 07/11/19 at 10:28; Status DC Calcium Gluconate 2000 mg/Sodium Chloride 120 ml @ 220 mls/hr 1X ONCE IV Last administered on 07/06/19at 09:05; Start 07/06/19 at 07:30; Stop 07/06/19 at 08:02; Status DC Lidocaine HCl (Xylocaine-Mpf 1% 2ml Vial) 2 ml STK-MED ONCE .ROUTE ; Start 07/06/19 at 08:47; Stop 07/06/19 at 08:47; Status DC Meropenem 500 mg/ Sodium Chloride 50 ml @ 100 mls/hr Q12HR IV Last ad ministered on 07/11/19at 21:01; Start 07/06/19 at 18:00; Stop 07/12/19 at 07:58; Status DC Lidocaine HCl (Buffered Lidocaine 1%) 3 ml STK-MED ONCE .ROUTE ; Start 07/06/19 at 09:46; Stop 07/06/19 at 09:46; Status DC Lidocaine HCl (Buffered Lidocaine 1%) 6 ml 1X ONCE INJ Last administered on 07/06/19at 10:26; Start 07/06/19 at 10:15; Stop 07/06/19 at 10:16; Status DC Info (Tpn Per Pharmacy) 1 each PRN DAILY PRN MC SEE COMMENTS Last administered on 10/03/19at 09:51; Start 07/06/19 at 12:00 Sodium Chloride 1,000 ml @ 1,000 mls/hr Q1H PRN IV hypotension; Start 07/06/19 at 12:07; Stop 07/06/19 at 18:06; Status DC Diphenhydramine HCl (Benadryl) 25 mg 1X PRN PRN IV ITCHING; Start 07/06/19 at 12:15; Stop 07/07/19 at 12:14; Status DC Diphenhydramine HCl (Benadryl) 25 mg 1X PRN PRN IV ITCHING; Start 07/06/19 at 12:15; Stop 07/07/19 at 12:14; Status DC Sodium Chloride 1,000 ml @ 400 mls/hr Q2H30M PRN IV PATENCY; Start 07/06/19 at 12:07; Stop 07/07/19 at 00:06; Status DC Info (PHARMACY MONITORING -- do not chart) 1 each PRN DAILY PRN MC SEE COMMENTS; Start 07/06/19 at 12:15; Stop 07/08/19 at 08:13; Status DC Sodium Chloride 90 meq/Calcium Gluconate 10 meq/ Multivitamins 10 ml/Chromium/ Copper/Manganese/ Seleni/Zn 1 ml/ Total Parenteral Nutrition/Amino Acids/De xtrose/ Fat Emulsion Intravenous 55.005 ml @ 2.292 mls/hr TPN CONT IV ; Start 07/06/19 at 22:00; Stop 07/06/19 at 12:33; Status DC Info (Tpn Per Pharmacy) 1 each PRN DAILY PRN MC SEE COMMENTS; Start 07/06/19 at 12:30; Status UNV Sodium Chloride 90 meq/Calcium Gluconate 10 meq/ Multivitamins 10 ml/Chromium/ Copper/Manganese/ Seleni/Zn 0.5 ml/ Total Parenteral Nutrition/Amino Ac ids/Dextrose/ Fat Emulsion Intravenous 1,512 ml @ 63 mls/hr TPN CONT IV Last administered on 07/06/19at 22:06; Start 07/06/19 at 22:00; Stop 07/07/19 at 21:59; Status DC Calcium Carbonate/ Glycine (Tums) 500 mg PRN AFTMEALHC PRN PO INDIGESTION; Start 07/06/19 at 17:45; Stop 08/31/19 at 10:25; Status DC Calcium Gluconate (Calcium Gluconate) 2,000 mg 1X ONCE IVP Last administered on 07/07/19at 02:19; Start 07/07/19 at 02:15; Stop 07/07/19 at 02:16; Status DC Calcium Chloride 3000 mg/Sodium Chloride 1,030 ml @ 50 mls/hr [id number] IV Last administered on 07/09/19at 02:17; Start 07/07/19 at 08:00; Stop 07/09/19 at 15:23; Status DC Lorazepam (Ativan Inj) 1 mg PRN Q4HRS PRN IVP ANXIETY / AGITATION, 2nd choic Last administered on 08/05/19at 03:51; Start 07/07/19 at 09:00; Stop 08/05/19 at 09:19; Status DC Sodium Chloride 1,000 ml @ 1,000 mls/hr Q1H PRN IV hypotension; Start 07/07/19 at 08:56; Stop 07/07/19 at 14:55; Status DC Albumin Human 200 ml @ 200 mls/hr 1X PRN PRN IV Hypotension; Start 07/07/19 at 09:00; Stop 07/07/19 at 14:59; Status DC Diphenhydramine HCl (Benadryl) 25 mg 1X PRN PRN IV ITCHING; Start 07/07/19 at 09:00; Stop 07/08/19 at 08:59; Status DC Diphenhydramine HCl (Benadryl) 25 mg 1X PRN PRN IV ITCHING; Start 07/07/19 at 09:00; Stop 07/08/19 at 08:59; Status DC Sodium Chloride 1,000 ml @ 400 mls/hr Q2H30M PRN IV PATENCY; Start 07/07/19 at 08:56; Stop 07/07/19 at 20:55; Status DC Info (PHARMACY MONITORING -- do not chart) 1 each PRN DAILY PRN MC SEE COMMENTS; Start 07/07/19 at 09:00; Status UNV Info (PHARMACY MONITORING -- do not chart) 1 each PRN DAILY PRN MC SEE COMMENTS; Start 07/07/19 at 09:00; Stop 07/08/19 at 08:13; Status DC Digoxin (Lanoxin) 500 mcg 1X ONCE IV Last administered on 07/07/19at 10:04; Start 07/07/19 at 10:00; Stop 07/07/19 at 10:01; Status DC Digoxin (Lanoxin) 125 mcg 1X ONCE IV Last administered on 07/07/19at 17:10; Start 07/07/19 at 18:00; Stop 07/07/19 at 18:01; Status DC Magnesium Sulfate 100 ml @ 25 mls/hr 1X ONCE IV Last administered on 07/07/19at 12:48; Start 07/07/19 at 13:00; Stop 07/07/19 at 16:59; Status DC Sodium Chloride 90 meq/Magnesium Sulfate 10 meq/ Calcium Gluconate 20 meq/ Multivitamins 10 ml/Chromium/ Copper/Manganese/ Seleni/Zn 0.5 ml/ Total Parenteral Nutrition/Amino Acids/Dextrose/ Fat Emulsion Intravenous 1,512 ml @ 63 mls/hr TPN CONT IV Last administered on 07/07/19at 22:25; Start 07/07/19 at 22:00; Stop 07/08/19 at 21:59; Status DC Sodium Chloride 1,000 ml @ 1,000 mls/hr Q1H PRN IV hypotension; Start 07/08/19 at 08:05; Stop 07/08/19 at 14:04; Status DC Albumin Human 200 ml @ 200 mls/hr 1X ONCE IV Last administered on 07/08/19at 08:57; Start 07/08/19 at 08:15; Stop 07/08/19 at 09:14; Status DC Diphenhydramine HCl (Benadryl) 25 mg 1X PRN PRN IV ITCHING; Start 07/08/19 at 08:15; Stop 07/09/19 at 08:14; Status DC Diphenhydramine HCl (Benadryl) 25 mg 1X PRN PRN IV ITCHING; Start 07/08/19 at 08:15; Stop 07/09/19 at 08:14; Status DC Sodium Chloride 1,000 ml @ 400 mls/hr Q2H30M PRN IV PATENCY; Start 07/08/19 at 08:05; Stop 07/08/19 at 20:04; Status DC Info (PHARMACY MONITORING -- do not chart) 1 each PRN DAILY PRN MC SEE COMMENTS; Start 07/08/19 at 08:15; Stop 07/12/19 at 07:57; Status DC Sodium Chloride 90 meq/Potassium Chloride 15 meq/ Potassium Phosphate 10 mmol/ Magnesium Sulfate 10 meq/Calcium Gluconate 20 meq/ Multivitamins 10 ml/Chromium/ Copper/Manganese/ Seleni/Zn 0.5 ml/ Total Parenteral Nutrition/Amino Acids/Dextrose/ Fat Emulsion Intravenous 1,512 ml @ 63 mls/hr TPN CONT IV Last administered on 07/08/19at 21:01; Start 07/08/19 at 22:00; Stop 07/09/19 at 21:59; Status DC Potassium Chloride/Water 100 ml @ 100 mls/hr 1X ONCE IV Last administered on 07/08/19at 14:09; Start 07/08/19 at 14:00; Stop 07/08/19 at 14:59; Status DC Benzocaine (Hurricaine One) 1 spray 1X ONCE MM Last administered on 07/08/19at 16:38; Start 07/08/19 at 14:30; Stop 07/08/19 at 14:31; Status DC Lidocaine HCl (Glydo (Lidocaine) Jelly) 1 ramu 1X ONCE MM Last administered on 07/08/19at 16:38; Start 07/08/19 at 14:30; Stop 07/08/19 at 14:31; Status DC Linezolid/Dextrose 300 ml @ 300 mls/hr Q12HR IV Last administered on 07/14/19at 21:04; Start 07/08/19 at 20:00; Stop 07/15/19 at 07:50; Status DC Acetaminophen (Tylenol) 650 mg PRN Q6HRS PRN PO MILD PAIN / TEMP; Start 07/09/19 at 03:30; Stop 07/09/19 at 03:36; Status DC Acetaminophen (Tylenol) 650 mg PRN Q6HRS PRN PEG MILD PAIN / TEMP Last administered on 08/04/19at 19:56; Start 07/09/19 at 03:36; Stop 08/31/19 at 10:25; Status DC Sodium Chloride 1,000 ml @ 1,000 mls/hr Q1H PRN IV hypotension; Start 07/09/19 at 07:50; Stop 07/09/19 at 13:49; Status DC Albumin Human 200 ml @ 200 mls/hr 1X PRN PRN IV Hypotension; Start 07/09/19 at 08:00; Stop 07/09/19 at 13:59; Status DC Sodium Chloride (Normal Saline Flush) 10 ml 1X PRN PRN IV AP catheter pack; Start 07/09/19 at 08:00; Stop 07/10/19 at 07:59; Status DC Sodium Chloride (Normal Saline Flush) 10 ml 1X PRN PRN IV [employer] catheter pack; Start 07/09/19 at 08:00; Stop 07/10/19 at 07:59; Status DC Sodium Chloride 1,000 ml @ 400 mls/hr Q2H30M PRN IV PATENCY; Start 07/09/19 at 07:50; Stop 07/09/19 at 19:49; Status DC Info (PHARMACY MONITORING -- do not chart) 1 each PRN DAILY PRN MC SEE COMMENTS; Start 07/09/19 at 08:00; Status UNV Info (PHARMACY MONITORING -- do not chart) 1 each PRN DAILY PRN MC SEE COMMENTS; Start 07/09/19 at 08:00; Stop 07/11/19 at 08:25; Status DC Sodium Chloride 90 meq/Potassium Chloride 15 meq/ Potassium Phosphate 10 mmol/ Magnesium Sulfate 10 meq/Calcium Gluconate 20 meq/ Multivitamins 10 ml/Chromium/ Copper/Manganese/ Seleni/Zn 0.5 ml/ Total Parenteral Nutrition/Amino Acids/Dextrose/ Fat Emulsion Intravenous 1,512 ml @ 63 mls/hr TPN CONT IV Last administered on 07/09/19at 20:57; Start 07/09/19 at 22:00; Stop 07/10/19 at 21:59; Status DC Sodium Chloride 90 meq/Potassium Chloride 15 meq/ Potassium Phosphate 15 mmol/ Magnesium Sulfate 10 meq/Calcium Gluconate 20 meq/ Multivitamins 10 ml/Chromium/ Copper/Manganese/ Seleni/Zn 0.5 ml/ Total Parenteral Nutrition/Amino Acids/Dextrose/ Fat Emulsion Intravenous 1,512 ml @ 63 mls/hr TPN CONT IV ; Start 07/10/19 at 22:00; Stop 07/10/19 at 14:16; Status DC Sodium Chloride 90 meq/Potassium Chloride 15 meq/ Potassium Phosphate 15 mmol/ Magnesium Sulfate 10 meq/Calcium Gluconate 20 meq/ Multivitamins 10 ml/Chromium/ Copper/Manganese/ Seleni/Zn 0.5 ml/ Total Parenteral Nutrition/Amino Acids/Dextrose/ Fat Emulsion Intravenous 1,200 ml @ 50 mls/hr TPN CONT IV ; Start 07/10/19 at 22:00; Stop 07/10/19 at 14:17; Status DC Sodium Chloride 90 meq/Potassium Chloride 15 meq/ Potassium Phosphate 10 mmol/ Magnesium Sulfate 10 meq/Calcium Gluconate 20 meq/ Multivitamins 10 ml/Chromium/ Copper/Manganese/ Seleni/Zn 0.5 ml/ Total Parenteral Nutrition/Amino Acids/Dextrose/ Fat Emulsion Intravenous 1,200 ml @ 50 mls/hr TPN CONT IV Last administered on 07/10/19at 23:29; Start 07/10/19 at 22:00; Stop 07/11/19 at 21:59; Status DC Sodium Chloride 1,000 ml @ 1,000 mls/hr Q1H PRN IV hypotension; Start 07/11/19 at 07:28; Stop 07/11/19 at 13:27; Status DC Albumin Human 200 ml @ 200 mls/hr 1X ONCE IV Last administered on 07/11/19at 08:51; Start 07/11/19 at 07:30; Stop 07/11/19 at 08:29; Status DC Diphenhydramine HCl (Benadryl) 25 mg 1X PRN PRN IV ITCHING; Start 07/11/19 at 07:30; Stop 07/12/19 at 07:29; Status DC Diphenhydramine HCl (Benadryl) 25 mg 1X PRN PRN IV ITCHING; Start 07/11/19 at 07:30; Stop 07/12/19 at 07:29; Status DC Sodium Chloride 1,000 ml @ 400 mls/hr Q2H30M PRN IV PATENCY; Start 07/11/19 at 07:28; Stop 07/11/19 at 19:27; Status DC Info (PHARMACY MONITORING -- do not chart) 1 each PRN DAILY PRN MC SEE COMMENTS; Start 07/11/19 at 07:30; Stop 07/22/19 at 13:01; Status DC Metronidazole 100 ml @ 100 mls/hr Q6HRS IV Last administered on 07/27/19at 06:26; Start 07/11/19 at 08:30; Stop 07/27/19 at 09:58; Status DC Micafungin Sodium 100 mg/Dextrose 100 ml @ 100 mls/hr Q24H IV Last administered on 08/18/19at 08:18; Start 07/11/19 at 09:00; Stop 08/18/19 at 20:58; Status DC Propofol 0 ml @ As Directed STK-MED ONCE IV ; Start 07/11/19 at 07:53; Stop 07/11/19 at 07:53; Status DC Etomidate (Amidate) 20 mg STK-MED ONCE IV ; Start 07/11/19 at 07:53; Stop 07/11/19 at 07:54; Status DC Midazolam HCl (Versed) 5 mg STK-MED ONCE .ROUTE ; Start 07/11/19 at 07:57; Stop 07/11/19 at 07:57; Status DC Fentanyl Citrate 30 ml @ 0 mls/hr CONT PRN IV SEE PROTOCOL Last administered on 08/05/19at 06:12; Start 07/11/19 at 08:15; Stop 08/05/19 at 09:19; Status DC Artificial Tears (Artificial Tears) 1 drop PRN Q1HR PRN OU DRY EYE, 1st choice; Start 07/11/19 at 08:15; Stop 08/17/19 at 05:31; Status DC Midazolam HCl 50 mg/Sodium Chloride 50 ml @ 0 mls/hr CONT PRN IV SEE PROTOCOL Last administered on 07/14/19at 22:39; Start 07/11/19 at 08:15; Stop 07/16/19 at 15:59; Status DC Etomidate (Amidate) 8 mg 1X ONCE IV Last administered on 07/11/19at 08:33; Start 07/11/19 at 08:30; Stop 07/11/19 at 08:31; Status DC Succinylcholine Chloride (Anectine) 120 mg 1X ONCE IV Last administered on 07/11/19at 08:34; Start 07/11/19 at 08:30; Stop 07/11/19 at 08:31; Status DC Midazolam HCl (Versed) 5 mg 1X ONCE IV ; Start 07/11/19 at 08:30; Stop 07/11/19 at 08:31; Status DC Potassium Chloride 15 meq/ Bicarbonate Dialysis Soln w/ out KCl 5,007.5 ml @ 1,000 mls/ hr Q5H1M IV Last administered on 07/12/19at 11:11; Start 07/11/19 at 12:00; Stop 07/12/19 at 11:15; Status DC Potassium Chloride 15 meq/ Bicarbonate Dialysis Soln w/ out KCl 5,007.5 ml @ 1,000 mls/ hr Q5H1M IV Last administered on 07/12/19at 11:12; Start 07/11/19 at 12:00; Stop 07/12/19 at 11:17; Status DC Potassium Chloride 15 meq/ Bicarbonate Dialysis Soln w/ out KCl 5,007.5 ml @ 1,000 mls/ hr Q5H1M IV Last administered on 07/12/19at 11:11; Start 07/11/19 at 12:00; Stop 07/12/19 at 11:19; Status DC Sodium Chloride 90 meq/Potassium Chloride 15 meq/ Potassium Phosphate 10 mmol/ Magnesium Sulfate 10 meq/Calcium Gluconate 20 meq/ Multivitamins 10 ml/Chromium/ Copper/Manganese/ Seleni/Zn 0.5 ml/ Total Parenteral Nutrition/Amino Acids/Dextrose/ Fat Emulsion Intravenous 1,400 ml @ 58.333 mls/ hr TPN CONT IV Last administered on 07/11/19at 21:42; Start 07/11/19 at 22:00; Stop 07/12/19 at 21:59; Status DC Heparin Sodium (Porcine) (Heparin Sodium) 5,000 unit Q8HRS SQ Last administered on 07/16/19at 05:55; Start 07/11/19 at 15:00; Stop 07/16/19 at 13:28; Status DC Meropenem 500 mg/ Sodium Chloride 50 ml @ 100 mls/hr Q6HRS IV Last administered on 07/13/19at 06:00; Start 07/12/19 at 09:00; Stop 07/13/19 at 07:29; Status DC Potassium Phosphate 20 mmol/ Sodium Chloride 106.6667 ml @ 51.667 m... 1X ONCE IV Last administered on 07/12/19at 11:22; Start 07/12/19 at 10:15; Stop 07/12/19 at 12:18; Status DC Acetaminophen (Tylenol Supp) 650 mg PRN Q6HRS PRN AL MILD PAIN / TEMP > 100.3'F Last administered on 09/28/19at 22:16; Start 07/12/19 at 10:30 Potassium Chloride/Water 100 ml @ 100 mls/hr Q1H IV Last administered on 07/12/19at 12:12; Start 07/12/19 at 11:00; Stop 07/12/19 at 12:59; Status DC Potassium Chloride 20 meq/ Bicarbonate Dialysis Soln w/ out KCl 5,010 ml @ 1,000 mls/hr Q5H1M IV Last administered on 07/13/19at 08:48; Start 07/12/19 at 12:00; Stop 07/13/19 at 13:03; Status DC Potassium Chloride 20 meq/ Bicarbonate Dialysis Soln w/ out KCl 5,010 ml @ 1,000 mls/hr Q5H1M IV Last administered on 07/17/19at 14:52; Start 07/12/19 at 11:30; Stop 07/17/19 at 19:59; Status DC Potassium Chloride 20 meq/ Bicarbonate Dialysis Soln w/ out KCl 5,010 ml @ 1,000 mls/hr Q5H1M IV Last administered on 07/17/19at 14:53; Start 07/12/19 at 11:30; Stop 07/17/19 at 19:59; Status DC Sodium Chloride 90 meq/Potassium Chloride 15 meq/ Potassium Phosphate 15 mmol/ Magnesium Sulfate 10 meq/Calcium Gluconate 15 meq/ Multivitamins 10 ml/Chromium/ Copper/Manganese/ Seleni/Zn 0.5 ml/ Total Parenteral Nutrition/Amino Acids/Dextrose/ Fat Emulsion Intravenous 1,400 ml @ 58.333 mls/ hr TPN CONT IV Last administered on 07/12/19at 22:17; Start 07/12/19 at 22:00; Stop 07/13/19 at 21:59; Status DC Cefepime HCl (Maxipime) 2 gm Q12HR IVP Last administered on 07/26/19at 20:56; Start 07/13/19 at 09:00; Stop 07/27/19 at 09:58; Status DC Daptomycin 500 mg/ Sodium Chloride 50 ml @ 100 mls/hr Q48H IV Last administered on 07/29/19at 09:57; Start 07/13/19 at 08:30; Stop 07/29/19 at 10:07; Status DC Lidocaine HCl (Buffered Lidocaine 1%) 3 ml 1X ONCE INJ Last administered on 07/13/19at 10:27; Start 07/13/19 at 10:30; Stop 07/13/19 at 10:31; Status DC Potassium Phosphate 20 mmol/ Sodium Chloride 106.6667 ml @ 51.667 m... 1X ONCE IV Last administered on 07/13/19at 12:51; Start 07/13/19 at 13:00; Stop 07/13/19 at 15:03; Status DC Sodium Chloride 90 meq/Potassium Chloride 15 meq/ Potassium Phosphate 18 mmol/ Magnesium Sulfate 8 meq/Calcium Gluconate 15 meq/ Multivitamins 10 ml/Chromium/ Copper/Manganese/ Seleni/Zn 0.5 ml/ Total Parenteral Nutrition/Amino Acids/Dextrose/ Fat Emulsion Intravenous 1,400 ml @ 58.333 mls/ hr TPN CONT IV Last administered on 07/13/19at 22:16; Start 07/13/19 at 22:00; Stop 07/14/19 at 21:59; Status DC Potassium Chloride 20 meq/ Bicarbonate Dialysis Soln w/ out KCl 5,010 ml @ 1,000 mls/hr Q5H1M IV Last administered on 07/17/19at 14:54; Start 07/13/19 at 16:00; Stop 07/17/19 at 19:59; Status DC Multi-Ingred Cream/Lotion/Oil/ Oint (Artificial Tears Eye Ointment) 1 ramu PRN Q1HR PRN OU DRY EYE, 2nd choice Last administered on 08/01/19at 08:19; Start 07/13/19 at 17:30; Stop 09/21/19 at 14:39; Status DC Sodium Chloride 90 meq/Potassium Chloride 15 meq/ Potassium Phosphate 18 mmol/ Magnesium Sulfate 8 meq/Calcium Gluconate 15 meq/ Multivitamins 10 ml/Chromium/ Copper/Manganese/ Seleni/Zn 0.5 ml/ Total Parenteral Nutrition/Amino Acids/Dextrose/ Fat Emulsion Intravenous 1,400 ml @ 58.333 mls/ hr TPN CONT IV Last administered on 07/14/19at 22:00; Start 07/14/19 at 22:00; Stop 07/15/19 at 21:59; Status DC Albumin Human 500 ml @ 125 mls/hr 1X ONCE IV ; Start 07/14/19 at 14:15; Stop 07/14/19 at 18:14; Status DC Sodium Chloride 90 meq/Potassium Chloride 15 meq/ Potassium Phosphate 18 mmol/ Magnesium Sulfate 8 meq/Calcium Gluconate 15 meq/ Multivitamins 10 ml/Chromium/ Copper/Manganese/ Seleni/Zn 0.5 ml/ Insulin Human Regular 10 unit/ Total Parenteral Nutrition/Amino Acids/Dextrose/ Fat Emulsion Intravenous 1,400 ml @ 58.333 mls/ hr TPN CONT IV Last administered on 07/15/19at 21:43; Start 07/15/19 at 22:00; Stop 07/16/19 at 21:59; Status DC Lidocaine HCl (Buffered Lidocaine 1%) 3 ml STK-MED ONCE .ROUTE ; Start 07/13/19 at 10:00; Stop 07/15/19 at 13:57; Status DC Midazolam HCl 100 mg/Sodium Chloride 100 ml @ 7 mls/hr CONT PRN IV SEE PROTOCOL Last administered on 07/27/19at 15:35; Start 07/16/19 at 16:00; Stop 09/21/19 at 14:38; Status DC Sodium Chloride 90 meq/Potassium Chloride 15 meq/ Potassium Phosphate 18 mmol/ Magnesium Sulfate 8 meq/Calcium Gluconate 15 meq/ Multivitamins 10 ml/Chromium/ Copper/Manganese/ Seleni/Zn 0.5 ml/ Insulin Human Regular 15 unit/ Total Parenteral Nutrition/Amino Acids/Dextrose/ Fat Emulsion Intravenous 1,400 ml @ 58.333 mls/ hr TPN CONT IV Last administered on 07/16/19at 20:34; Start 07/16/19 at 22:00; Stop 07/17/19 at 21:59; Status DC Info (Icu Electrolyte Protocol) 1 ea CONT PRN PRN MC PER PROTOCOL; Start 07/17/19 at 13:15 Sodium Chloride 90 meq/Potassium Chloride 15 meq/ Potassium Phosphate 18 mmol/ Magnesium Sulfate 8 meq/Calcium Gluconate 15 meq/ Multivitamins 10 ml/Chromium/ Copper/Manganese/ Seleni/Zn 0.5 ml/ Insulin Human Regular 15 unit/ Total Parenteral Nutrition/Amino Acids/Dextrose/ Fat Emulsion Intravenous 1,400 ml @ 58.333 mls/ hr TPN CONT IV Last administered on 07/17/19at 22:05; Start 07/17/19 at 22:00; Stop 07/18/19 at 21:59; Status DC Potassium Chloride 15 meq/ Bicarbonate Dialysis Soln w/ out KCl 5,007.5 ml @ 1,000 mls/ hr Q5H1M IV Last administered on 07/20/19at 18:14; Start 07/17/19 at 20:00; Stop 07/21/19 at 13:08; Status DC Potassium Chloride 15 meq/ Bicarbonate Dialysis Soln w/ out KCl 5,007.5 ml @ 1,000 mls/ hr Q5H1M IV Last administered on 07/20/19at 18:14; Start 07/17/19 at 20:00; Stop 07/21/19 at 13:08; Status DC Potassium Chloride 15 meq/ Bicarbonate Dialysis Soln w/ out KCl 5,007.5 ml @ 1,000 mls/ hr Q5H1M IV Last administered on 07/20/19at 18:14; Start 07/17/19 at 20:00; Stop 07/21/19 at 13:08; Status DC Iohexol (Omnipaque 240 Mg/ml) 30 ml 1X ONCE PO Last administered on 07/18/19at 11:30; Start 07/18/19 at 11:30; Stop 07/18/19 at 11:33; Status DC Info (CONTRAST GIVEN -- Rx MONITORING) 1 each PRN DAILY PRN MC SEE COMMENTS; Start 07/18/19 at 11:45; Stop 07/20/19 at 11:44; Status DC Sodium Chloride 90 meq/Potassium Chloride 15 meq/ Potassium Phosphate 18 mmol/ Magnesium Sulfate 8 meq/Calcium Gluconate 15 meq/ Multivitamins 10 ml/Chromium/ Copper/Manganese/ Seleni/Zn 0.5 ml/ Insulin Human Regular 15 unit/ Total Parenteral Nutrition/Amino Acids/Dextrose/ Fat Emulsion Intravenous 1,400 ml @ 58.333 mls/ hr TPN CONT IV Last administered on 07/18/19at 21:47; Start 07/18/19 at 22:00; Stop 07/19/19 at 21:59; Status DC Sodium Chloride 90 meq/Potassium Chloride 15 meq/ Potassium Phosphate 18 mmol/ Magnesium Sulfate 8 meq/Calcium Gluconate 15 meq/ Multivitamins 10 ml/Chromium/ Copper/Manganese/ Seleni/Zn 0.5 ml/ Insulin Human Regular 20 unit/ Total Parenteral Nutrition/Amino Acids/Dextrose/ Fat Emulsion Intravenous 1,400 ml @ 58.333 mls/ hr TPN CONT IV Last administered on 07/19/19at 21:36; Start 07/19/19 at 22:00; Stop 07/20/19 at 21:59; Status DC Alteplase, Recombinant (Cathflo For Central Catheter Clearance) 1 mg 1X ONCE INT CAT Last administered on 07/19/19at 20:03; Start 07/19/19 at 19:30; Stop 07/19/19 at 19:46; Status DC Alteplase, Recombinant (Cathflo For Central Catheter Clearance) 1 mg 1X ONCE INT CAT Last administered on 07/19/19at 22:05; Start 07/19/19 at 22:00; Stop 07/19/19 at 22:01; Status DC Sodium Chloride 90 meq/Potassium Chloride 15 meq/ Potassium Phosphate 18 mmol/ Magnesium Sulfate 8 meq/Calcium Gluconate 15 meq/ Multivitamins 10 ml/Chromium/ Copper/Manganese/ Seleni/Zn 0.5 ml/ Insulin Human Regular 20 unit/ Total Parenteral Nutrition/Amino Acids/Dextrose/ Fat Emulsion Intravenous 1,400 ml @ 58.333 mls/ hr TPN CONT IV Last administered on 07/20/19at 21:30; Start 07/20/19 at 22:00; Stop 07/21/19 at 21:59; Status DC Dexmedetomidine HCl 400 mcg/ Sodium Chloride 100 ml @ 0 mls/hr CONT PRN IV ANXIETY / AGITATION Last administered on 09/17/19at 12:57; Start 07/21/19 at 08:15; Stop 09/17/19 at 18:31; Status DC Sodium Chloride 500 ml @ 500 mls/hr 1X PRN PRN IV ELEVATED BP, SEE COMMENTS; Start 07/21/19 at 08:15 Atropine Sulfate (ATROPINE 0.5mg SYRINGE) 0.5 mg PRN Q5MIN PRN IV SEE COMMENTS; Start 07/21/19 at 08:15 Furosemide (Lasix) 20 mg 1X ONCE IVP Last administered on 07/21/19at 08:19; Start 07/21/19 at 08:15; Stop 07/21/19 at 08:16; Status DC Lidocaine HCl (Buffered Lidocaine 1%) 3 ml STK-MED ONCE .ROUTE ; Start 07/21/19 at 08:39; Stop 07/21/19 at 08:39; Status DC Lidocaine HCl (Buffered Lidocaine 1%) 6 ml 1X ONCE INJ Last administered on 07/21/19at 09:05; Start 07/21/19 at 09:00; Stop 07/21/19 at 09:06; Status DC Sodium Chloride 90 meq/Potassium Chloride 15 meq/ Potassium Phosphate 18 mmol/ Magnesium Sulfate 8 meq/Calcium Gluconate 15 meq/ Multivitamins 10 ml/Chromium/ Copper/Manganese/ Seleni/Zn 0.5 ml/ Insulin Human Regular 20 unit/ Total Parenteral Nutrition/Amino Acids/Dextrose/ Fat Emulsion Intravenous 1,400 ml @ 58.333 mls/ hr TPN CONT IV Last administered on 07/21/19at 22:45; Start 07/21/19 at 22:00; Stop 07/22/19 at 21:59; Status DC Sodium Chloride 1,000 ml @ 1,000 mls/hr Q1H PRN IV hypotension; Start 07/22/19 at 07:30; Stop 07/22/19 at 13:29; Status DC Albumin Human 200 ml @ 200 mls/hr 1X PRN PRN IV Hypotension Last administered on 07/22/19at 09:36; Start 07/22/19 at 07:30; Stop 07/22/19 at 13:29; Status DC Sodium Chloride (Normal Saline Flush) 10 ml 1X PRN PRN IV AP catheter pack; Start 07/22/19 at 07:30; Stop 07/22/19 at 21:29; Status DC Sodium Chloride (Normal Saline Flush) 10 ml 1X PRN PRN IV [employer] catheter pack; Start 07/22/19 at 07:30; Stop 07/23/19 at 07:29; Status DC Sodium Chloride 1,000 ml @ 400 mls/hr Q2H30M PRN IV PATENCY; Start 07/22/19 at 07:30; Stop 07/22/19 at 19:29; Status DC Info (PHARMACY MONITORING -- do not chart) 1 each PRN DAILY PRN MC SEE COMMENTS; Start 07/22/19 at 07:30; Stop 07/22/19 at 13:02; Status DC Info (PHARMACY MONITORING -- do not chart) 1 each PRN DAILY PRN MC SEE COMMENTS; Start 07/22/19 at 07:30; Stop 07/24/19 at 12:45; Status DC Sodium Chloride 90 meq/Potassium Chloride 15 meq/ Potassium Phosphate 10 mmol/ Magnesium Sulfate 8 meq/Calcium Gluconate 15 meq/ Multivitamins 10 ml/Chromium/ Copper/Manganese/ Seleni/Zn 0.5 ml/ Insulin Human Regular 25 unit/ Total Pare nteral Nutrition/Amino Acids/Dextrose/ Fat Emulsion Intravenous 1,400 ml @ 58.333 mls/ hr TPN CONT IV Last administered on 07/22/19at 22:19; Start 07/22/19 at 22:00; Stop 07/23/19 at 21:59; Status DC Heparin Sodium (Porcine) (Heparin Sodium) 5,000 unit Q12HR SQ Last administered on 08/14/19at 08:59; Start 07/22/19 at 21:00; Stop 08/14/19 at 10:05; Status DC Ondansetron HCl (Zofran) 4 mg PRN Q6HRS PRN IV NAUSEA/VOMITING; Start 07/25/19 at 07:00; Stop 07/26/19 at 06:59; Status DC Fentanyl Citrate (Fentanyl 2ml Vial) 25 mcg PRN Q5MIN PRN IV MILD PAIN 1-3; Start 07/25/19 at 07:00; Stop 07/26/19 at 06:59; Status DC Fentanyl Citrate (Fentanyl 2ml Vial) 50 mcg PRN Q5MIN PRN IV MODERATE TO SEVERE PAIN; Start 07/25/19 at 07:00; Stop 07/26/19 at 06:59; Status DC Ringer's Solution 1,000 ml @ 30 mls/hr Q24H IV ; Start 07/25/19 at 07:00; Stop 07/25/19 at 18:59; Status DC Lidocaine HCl (Xylocaine-Mpf 1% 2ml Vial) 2 ml PRN 1X PRN ID PRIOR TO IV START; Start 07/25/19 at 07:00; Stop 07/26/19 at 06:59; Status DC Prochlorperazine Edisylate (Compazine) 5 mg PACU PRN PRN IV NAUSEA, MRX1; Start 07/25/19 at 07:00; Stop 07/26/19 at 06:59; Status DC Sodium Chloride 1,000 ml @ 1,000 mls/hr Q1H PRN IV hypotension; Start 07/23/19 at 09:10; Stop 07/23/19 at 15:09; Status DC Albumin Human 200 ml @ 200 mls/hr 1X PRN PRN IV Hypotension Last administered on 07/23/19at 10:10; Start 07/23/19 at 09:15; Stop 07/23/19 at 15:14; Status DC Sodium Chloride 1,000 ml @ 400 mls/hr Q2H30M PRN IV PATENCY; Start 07/23/19 at 09:10; Stop 07/23/19 at 21:09; Status DC Info (PHARMACY MONITORING -- do not chart) 1 each PRN DAILY PRN MC SEE COMMENTS; Start 07/23/19 at 09:15; Stop 07/24/19 at 12:45; Status DC Info (PHARMACY MONITORING -- do not chart) 1 each PRN DAILY PRN MC SEE COMMENTS; Start 07/23/19 at 09:15; Stop 07/24/19 at 12:45; Status DC Sodium Chloride 90 meq/Potassium Chloride 15 meq/ Potassium Phosphate 10 mmol/ Magnesium Sulfate 8 meq/Calcium Gluconate 15 meq/ Multivitamins 10 ml/Chromium/ Copper/Manganese/ Seleni/Zn 0.5 ml/ Insulin Human Regular 25 unit/ Total Parenteral Nutrition/Amino Acids/Dextrose/ Fat Emulsion Intravenous 1,400 ml @ 58.333 mls/ hr TPN CONT IV Last administered on 07/23/19at 22:10; Start 07/23/19 at 22:00; Stop 07/24/19 at 21:59; Status DC Magnesium Sulfate 50 ml @ 25 mls/hr PRN DAILY PRN IV for Mag < 1.7 on am labs Last administered on 10/04/19at 08:21; Start 07/24/19 at 09:15 Sodium Chloride 90 meq/Potassium Chloride 15 meq/ Potassium Phosphate 10 mmol/ Magnesium Sulfate 8 meq/Calcium Gluconate 15 meq/ Multivitamins 10 ml/Chromium/ Copper/Manganese/ Seleni/Zn 0.5 ml/ Insulin Human Regular 25 unit/ Total Parenteral Nutrition/Amino Acids/Dextrose/ Fat Emulsion Intravenous 1,400 ml @ 58.333 mls/ hr TPN CONT IV Last administered on 07/24/19at 21:20; Start 07/24/19 at 22:00; Stop 07/25/19 at 21:59; Status DC Sodium Chloride 1,000 ml @ 1,000 mls/hr Q1H PRN IV hypotension; Start 07/24/19 at 12:23; Stop 4/5/20 at 18:22; Status DC Albumin Human 200 ml @ 200 mls/hr 1X ONCE IV Last administered on 07/24/19at 13:34; Start 07/24/19 at 12:30; Stop 07/24/19 at 13:29; Status DC Diphenhydramine HCl (Benadryl) 25 mg 1X PRN PRN IV ITCHING; Start 07/24/19 at 12:30; Stop 07/25/19 at 12:29; Status DC Diphenhydramine HCl (Benadryl) 25 mg 1X PRN PRN IV ITCHING; Start 07/24/19 at 12:30; Stop 07/25/19 at 12:29; Status DC Info (PHARMACY MONITORING -- do not chart) 1 each PRN DAILY PRN MC SEE COMMENTS; Start 07/24/19 at 12:30; Status Cancel Bupivacaine HCl/ Epinephrine Bitart (Sensorcain-Epi 0.5%-1:[id number] Mpf) 30 ml STK-MED ONCE .ROUTE Last administered on 07/25/19at 11:44; Start 07/25/19 at 11:00; Stop 07/25/19 at 11:01; Status DC Cellulose (Surgicel Fibrillar 1x2) 1 each STK-MED ONCE .ROUTE ; Start 07/25/19 at 11:00; Stop 07/25/19 at 11:01; Status DC Sodium Chloride 90 meq/Potassium Chloride 15 meq/ Potassium Phosphate 10 mmol/ Magnesium Sulfate 12 meq/Calcium Gluconate 15 meq/ Multivitamins 10 ml/Chromium/ Copper/Manganese/ Seleni/Zn 0.5 ml/ Insulin Human Regular 25 unit/ Total Parenteral Nutrition/Amino Acids/Dextrose/ Fat Emulsion Intravenous 1,400 ml @ 58.333 mls/ hr TPN CONT IV Last administered on 07/25/19at 22:24; Start 07/25/19 at 22:00; Stop 07/26/19 at 21:59; Status DC Propofol 20 ml @ As Directed STK-MED ONCE IV ; Start 07/25/19 at 11:07; Stop 07/25/19 at 11:07; Status DC Cellulose (Surgicel Hemostat 4x8) 1 each STK-MED ONCE .ROUTE Last administered on 07/25/19at 11:44; Start 07/25/19 at 11:55; Stop 07/25/19 at 11:56; Status DC Sevoflurane (Ultane) 60 ml STK-MED ONCE IH ; Start 07/25/19 at 12:46; Stop 07/25/19 at 12:46; Status DC Sodium Chloride 1,000 ml @ 1,000 mls/hr Q1H PRN IV hypotension; Start 07/25/19 at 13:51; Stop 07/25/19 at 19:50; Status DC Albumin Human 200 ml @ 200 mls/hr 1X PRN PRN IV Hypotension Last administered on 07/25/19at 14:51; Start 07/25/19 at 14:00; Stop 07/25/19 at 19:59; Status DC Diphenhydramine HCl (Benadryl) 25 mg 1X PRN PRN IV ITCHING; Start 07/25/19 at 14:00; Stop 07/26/19 at 13:59; Status DC Diphenhydramine HCl (Benadryl) 25 mg 1X PRN PRN IV ITCHING; Start 07/25/19 at 14:00; Stop 07/26/19 at 13:59; Status DC Sodium Chloride 1,000 ml @ 400 mls/hr Q2H30M PRN IV PATENCY; Start 07/25/19 at 13:51; Stop 07/26/19 at 01:50; Status DC Info (PHARMACY MONITORING -- do not chart) 1 each PRN DAILY PRN MC SEE COMMENTS; Start 07/25/19 at 14:00; Stop 07/28/19 at 08:16; Status DC Heparin Sodium (Porcine) (Hep Lock Adult) 500 unit STK-MED ONCE IVP ; Start 07/26/19 at 09:29; Stop 07/26/19 at 09:30; Status DC Sodium Chloride 1,000 ml @ 1,000 mls/hr Q1H PRN IV hypotension; Start 07/26/19 at 10:43; Stop 07/26/19 at 16:42; Status DC Sodium Chloride 1,000 ml @ 400 mls/hr Q2H30M PRN IV PATENCY; Start 07/26/19 at 10:43; Stop 07/26/19 at 22:42; Status DC Info (PHARMACY MONITORING -- do not chart) 1 each PRN DAILY PRN MC SEE COMMENTS; Start 07/26/19 at 10:45; Status UNV Info (PHARMACY MONITORING -- do not chart) 1 each PRN DAILY PRN MC SEE COMMENTS; Start 07/26/19 at 10:45; Status UNV Sodium Chloride 90 meq/Potassium Chloride 15 meq/ Magnesium Sulfate 12 meq/Calcium Gluconate 15 meq/ Multivitamins 10 ml/Chromium/ Copper/Manganese/ Seleni/Zn 0.5 ml/ Insulin Human Regular 25 unit/ Total Parenteral Nutrition/Amino Acids/Dextrose/ Fat Emulsion Intravenous 1,400 ml @ 58.333 mls/ hr TPN CONT IV Last administered on 07/26/19at 22:13; Start 07/26/19 at 22:00; Stop 07/27/19 at 21:59; Status DC Sodium Chloride 1,000 ml @ 1,000 mls/hr Q1H PRN IV hypotension; Start 07/27/19 at 07:50; Stop 07/27/19 at 13:49; Status DC Albumin Human 200 ml @ 200 mls/hr 1X ONCE IV ; Start 07/27/19 at 08:00; Stop 07/27/19 at 08:53; Status DC Diphenhydramine HCl (Benadryl) 25 mg 1X PRN PRN IV ITCHING; Start 07/27/19 at 08:00; Stop 07/28/19 at 07:59; Status DC Diphenhydramine HCl (Benadryl) 25 mg 1X PRN PRN IV ITCHING; Start 07/27/19 at 08:00; Stop 07/28/19 at 07:59; Status DC Info (PHARMACY MONITORING -- do not chart) 1 each PRN DAILY PRN MC SEE CO MMENTS; Start 07/27/19 at 08:00; Stop 07/28/19 at 08:16; Status DC Albumin Human 50 ml @ 50 mls/hr 1X ONCE IV ; Start 07/27/19 at 08:53; Stop 07/27/19 at 08:56; Status DC Albumin Human 200 ml @ 50 mls/hr PRN 1X PRN IV HYPOTENSION Last administered on 08/02/19at 11:54; Start 07/27/19 at 09:00; Stop 09/08/19 at 11:14; Status DC Meropenem 500 mg/ Sodium Chloride 50 ml @ 100 mls/hr Q12H IV Last administered on 08/16/19at 10:45; Start 07/27/19 at 10:00; Stop 08/16/19 at 12:37; Status DC Sodium Chloride 90 meq/Magnesium Sulfate 12 meq/ Calcium Gluconate 15 meq/ Multivitamins 10 ml/Chromium/ Copper/Manganese/ Seleni/Zn 0.5 ml/ Insulin Human Regular 25 unit/ Total Parenteral Nutrition/Amino Acids/Dextrose/ Fat Emulsion Intravenous 1,400 ml @ 58.333 mls/ hr TPN CONT IV Last administered on 07/27/19at 21:41; Start 07/27/19 at 22:00; Stop 07/28/19 at 21:59; Status DC Sodium Chloride 1,000 ml @ 1,000 mls/hr Q1H PRN IV hypotension; Start 07/28/19 at 07:58; Stop 07/28/19 at 13:57; Status DC Albumin Human 200 ml @ 200 mls/hr 1X PRN PRN IV Hypotension Last administered on 07/28/19at 09:30; Start 07/28/19 at 08:00; Stop 07/28/19 at 13:59; Status DC Sodium Chloride 1,000 ml @ 400 mls/hr Q2H30M PRN IV PATENCY; Start 07/28/19 at 07:58; Stop 07/28/19 at 19:57; Status DC Info (PHARMACY MONITORING -- do not chart) 1 each PRN DAILY PRN MC SEE COMMENTS; Start 07/28/19 at 08:00; Status Cancel Info (PHARMACY MONITORING -- do not chart) 1 each PRN DAILY PRN MC SEE COMMENTS; Start 07/28/19 at 08:15; Status UNV Sodium Chloride 90 meq/Potassium Phosphate 5 mmol/ Magnesium Sulfate 12 meq/Calcium Gluconate 15 meq/ Multivitamins 10 ml/Chromium/ Copper/Manganese/ Seleni/Zn 0.5 ml/ Insulin Human Regular 30 unit/ Total Parenteral Nutrition/Amino Acids/Dextrose/ Fat Emulsion Intravenous 1,400 ml @ 58.333 mls/ hr TPN CONT IV Last administered on 07/28/19at 22:08; Start 07/28/19 at 22:00; Stop 07/29/19 at 21:59; Status DC Linezolid/Dextrose 300 ml @ 300 mls/hr Q12HR IV Last administered on 08/08/19at 20:40; Start 07/29/19 at 11:00; Stop 08/09/19 at 08:10; Status DC Sodium Chloride 90 meq/Potassium Phosphate 15 mmol/ Magnesium Sulfate 12 meq/Calcium Gluconate 15 meq/ Multivitamins 10 ml/Chromium/ Copper/Manganese/ Seleni/Zn 0.5 ml/ Insulin Human Regular 30 unit/ Total Parenteral Nutrition/Amino Acids/Dextrose/ Fat Emulsion Intravenous 1,400 ml @ 58.333 mls/ hr TPN CONT IV Last administered on 07/29/19at 21:49; Start 07/29/19 at 22:00; Stop 07/30/19 at 21:59; Status DC Sodium Chloride 90 meq/Potassium Phosphate 15 mmol/ Magnesium Sulfate 12 meq/Zachariah cium Gluconate 15 meq/ Multivitamins 10 ml/Chromium/ Copper/Manganese/ Seleni/Zn 0.5 ml/ Insulin Human Regular 40 unit/ Total Parenteral Nutrition/Amino Acids/Dextrose/ Fat Emulsion Intravenous 1,400 ml @ 58.333 mls/ hr TPN CONT IV Last administered on 07/30/19at 21:21; Start 07/30/19 at 22:00; Stop 07/31/19 at 21:59; Status DC Sodium Chloride 1,000 ml @ 1,000 mls/hr Q1H PRN IV hypotension; Start 07/30/19 at 13:26; Stop 07/30/19 at 19:25; Status DC Albumin Human 200 ml @ 200 mls/hr 1X PRN PRN IV Hypotension Last administered on 07/30/19at 15:00; Start 07/30/19 at 13:30; Stop 07/30/19 at 19:29; Status DC Sodium Chloride (Normal Saline Flush) 10 ml 1X PRN PRN IV AP catheter pack; Start 07/30/19 at 13:30; Stop 07/31/19 at 13:29; Status DC Sodium Chloride (Normal Saline Flush) 10 ml 1X PRN PRN IV [employer] catheter pack; Start 07/30/19 at 13:30; Stop 07/31/19 at 13:29; Status DC Sodium Chloride 1,000 ml @ 400 mls/hr Q2H30M PRN IV PATENCY; Start 07/30/19 at 13:26; Stop 07/31/19 at 01:25; Status DC Info (PHARMACY MONITORING -- do not chart) 1 each PRN DAILY PRN MC SEE COMMENTS; Start 07/30/19 at 13:30; Stop 07/30/19 at 13:33; Status DC Info (PHARMACY MONITORING -- do not chart) 1 each PRN DAILY PRN MC SEE COMMENTS; Start 07/30/19 at 13:30; Stop 07/30/19 at 13:34; Status DC Sodium Chloride 90 meq/Potassium Phosphate 19 mmol/ Magnesium Sulfate 12 meq/Calcium Gluconate 15 meq/ Multivitamins 10 ml/Chromium/ Copper/Manganese/ Seleni/Zn 0.5 ml/ Insulin Human Regular 40 unit/ Total Parenteral Nutrition/Amino Acids/Dextrose/ Fat Emulsion Intravenous 1,400 ml @ 58.333 mls/ hr TPN CONT IV Last administered on 07/31/19at 21:54; Start 07/31/19 at 22:00; Stop 08/01/19 at 21:59; Status DC Sodium Chloride 1,000 ml @ 1,000 mls/hr Q1H PRN IV hypotension; Start 08/01/19 at 09:35; Stop 08/01/19 at 15:34; Status DC Albumin Human 200 ml @ 200 mls/hr 1X PRN PRN IV Hypotension; Start 08/01/19 at 09:45; Stop 08/01/19 at 15:44; Status DC Diphenhydramine HCl (Benadryl) 25 mg 1X PRN PRN IV ITCHING; Start 08/01/19 at 09:45; Stop 08/02/19 at 09:44; Status DC Diphenhydramine HCl (Benadryl) 25 mg 1X PRN PRN IV ITCHING; Start 08/01/19 at 09:45; Stop 08/02/19 at 09:44; Status DC Sodium Chloride 1,000 ml @ 400 mls/hr Q2H30M PRN IV PATENCY; Start 08/01/19 at 09:35; Stop 08/01/19 at 21:34; Status DC Info (PHARMACY MONITORING -- do not chart) 1 each PRN DAILY PRN MC SEE COMMENTS; Start 08/01/19 at 09:45; Status Cancel Sodium Chloride 100 meq/Potassium Phosphate 19 mmol/ Magnesium Sulfate 12 meq/Calcium Gluconate 15 meq/ Multivitamins 10 ml/Chromium/ Copper/Manganese/ Seleni/Zn 0.5 ml/ Insulin Human Regular 40 unit/ Potassium Chloride 20 meq/ Total Parenteral Nutrition/Amino Acids/Dextrose/ Fat Emulsion Intravenous 1,400 ml @ 58.333 mls/ hr TPN CONT IV Last administered on 08/01/19at 22:02; Start 08/01/19 at 22:00; Stop 08/02/19 at 21:59; Status DC Furosemide (Lasix) 40 mg 1X ONCE IVP Last administered on 08/01/19at 14:39; Start 08/01/19 at 14:30; Stop 08/01/19 at 14:31; Status DC Metronidazole 100 ml @ 100 mls/hr Q8HRS IV Last administered on 08/09/19at 06:04; Start 08/02/19 at 10:00; Stop 08/09/19 at 08:10; Status DC Sodium Chloride 1,000 ml @ 1,000 mls/hr Q1H PRN IV hypotension; Start 08/02/19 at 08:00; Stop 08/02/19 at 13:59; Status DC Albumin Human 200 ml @ 200 mls/hr 1X PRN PRN IV Hypotension; Start 08/02/19 at 08:00; Stop 08/02/19 at 13:59; Status DC Sodium Chloride 1,000 ml @ 400 mls/hr Q2H30M PRN IV PATENCY; Start 08/02/19 at 08:00; Stop 08/02/19 at 19:59; Status DC Info (PHARMACY MONITORING -- do not chart) 1 each PRN DAILY PRN MC SEE COMMENTS; Start 08/02/19 at 11:30; Status UNV Info (PHARMACY MONITORING -- do not chart) 1 each PRN DAILY PRN MC SEE COMMENTS; Start 08/02/19 at 11:30; Stop 08/04/19 at 12:13; Status DC Sodium Chloride 100 meq/Potassium Phosphate 19 mmol/ Magnesium Sulfate 12 meq/Calcium Gluconate 15 meq/ Multivitamins 10 ml/Chromium/ Copper/Manganese/ Seleni/Zn 0.5 ml/ Insulin Human Regular 40 unit/ Potassium Chloride 20 meq/ Total Parenteral Nutrition/Amino Acids/Dextrose/ Fat Emulsion Intravenous 1,400 ml @ 58.333 mls/ hr TPN CONT IV Last administered on 08/02/19at 21:52; Start 08/02/19 at 22:00; Stop 08/03/19 at 21:59; Status DC Sodium Chloride (Normal Saline Flush) 10 ml QSHIFT PRN IV AFTER MEDS AND BLOOD DRAWS; Start 08/02/19 at 15:00; Stop 08/30/19 at 11:27; Status DC Sodium Chloride (Normal Saline Flush) 10 ml PRN Q5MIN PRN IV AFTER MEDS AND BLOOD DRAWS; Start 08/02/19 at 15:00 Sodium Chloride (Normal Saline Flush) 20 ml PRN Q5MIN PRN IV AFTER MEDS AND BLOOD DRAWS; Start 08/02/19 at 15:00 Sodium Chloride 100 meq/Potassium Phosphate 19 mmol/ Magnesium Sulfate 12 meq/Calcium Gluconate 15 meq/ Multivitamins 10 ml/Chromium/ Copper/Manganese/ Seleni/Zn 0.5 ml/ Insulin Human Regular 40 unit/ Potassium Chloride 20 meq/ Total Parenteral Nutrition/Amino Acids/Dextrose/ Fat Emulsion Intravenous 1,400 ml @ 58.333 mls/ hr TPN CONT IV Last administered on 08/03/19at 21:20; Start 08/03/19 at 22:00; Stop 08/04/19 at 21:59; Status DC Lidocaine HCl (Buffered Lidocaine 1%) 3 ml STK-MED ONCE .ROUTE ; Start 08/03/19 at 13:16; Stop 08/03/19 at 13:16; Status DC Lidocaine HCl (Buffered Lidocaine 1%) 6 ml 1X ONCE INJ Last administered on 08/03/19at 13:45; Start 08/03/19 at 13:30; Stop 08/03/19 at 13:31; Status DC Albumin Human 100 ml @ 100 mls/hr 1X ONCE IV Last administered on 08/03/19at 15:41; Start 08/03/19 at 15:00; Stop 08/03/19 at 15:59; Status DC Albumin Human 50 ml @ 50 mls/hr 1X ONCE IV Last administered on 08/03/19at 15:00; Start 08/03/19 at 15:00; Stop 08/03/19 at 15:59; Status DC Info (PHARMACY MONITORING -- do not chart) 1 each PRN DAILY PRN MC SEE COMMENTS; Start 08/04/19 at 11:30; Status Cancel Info (PHARMACY MONITORING -- do not chart) 1 each PRN DAILY PRN MC SEE COMMENTS; Start 08/04/19 at 11:30; Status UNV Sodium Chloride 100 meq/Potassium Phosphate 10 mmol/ Magnesium Sulfate 12 meq/Calcium Gluconate 15 meq/ Multivitamins 10 ml/Chromium/ Copper/Manganese/ Seleni/Zn 0.5 ml/ Insulin Human Regular 35 unit/ Potassium Chloride 20 meq/ Total Parenteral Nutrition/Amino Acids/Dextrose/ Fat Emulsion Intravenous 1,400 ml @ 58.333 mls/ hr TPN CONT IV Last administered on 08/04/19at 22:10; Start 08/04/19 at 22:00; Stop 08/05/19 at 21:59; Status DC Sodium Chloride 100 meq/Potassium Phosphate 5 mmol/ Magnesium Sulfate 12 meq/Calcium Gluconate 15 meq/ Multivitamins 10 ml/Chromium/ Copper/Manganese/ Seleni/Zn 0.5 ml/ Insulin Human Regular 35 unit/ Potassium Chloride 20 meq/ Total Parenteral Nutrition/Amino Acids/Dextrose/ Fat Emulsion Intravenous 1,400 ml @ 58.333 mls/ hr TPN CONT IV Last administered on 08/05/19at 22:59; Start 08/05/19 at 22:00; Stop 08/06/19 at 21:59; Status DC Sodium Chloride 1,000 ml @ 1,000 mls/hr Q1H PRN IV hypotension; Start 08/06/19 at 08:27; Stop 08/06/19 at 14:26; Status DC Albumin Human 200 ml @ 200 mls/hr 1X PRN PRN IV Hypotension Last administered on 08/06/19at 09:18; Start 08/06/19 at 08:30; Stop 08/06/19 at 14:29; Status DC Sodium Chloride 1,000 ml @ 400 mls/hr Q2H30M PRN IV PATENCY; Start 08/06/19 at 08:27; Stop 08/06/19 at 20:26; Status DC Info (PHARMACY MONITORING -- do not chart) 1 each PRN DAILY PRN MC SEE COMMENTS; Start 08/06/19 at 08:30; Status Cancel Info (PHARMACY MONITORING -- do not chart) 1 each PRN DAILY PRN MC SEE COMMENTS; Start 08/06/19 at 08:30; Stop 08/14/19 at 13:10; Status DC Sodium Chloride 100 meq/Potassium Chloride 40 meq/ Magnesium Sulfate 15 meq/Calcium Gluconate 15 meq/ Multivitamins 10 ml/Chromium/ Copper/Manganese/ Seleni/Zn 0.5 ml/ Insulin Human Regular 35 unit/ Total Parenteral Nutrition/Amino Acids/Dextrose/ Fat Emulsion Intravenous 1,400 ml @ 58.333 mls/ hr TPN CONT IV Last administered on 08/06/19at 22:00; Start 08/06/19 at 22:00; Stop 08/07/19 at 21:59; Status DC Potassium Chloride/Water 100 ml @ 100 mls/hr 1X ONCE IV Last administered on 08/06/19at 17:28; Start 08/06/19 at 14:45; Stop 08/06/19 at 15:44; Status DC Sodium Chloride 100 meq/Potassium Chloride 40 meq/ Magnesium Sulfate 15 meq/Zachariah cium Gluconate 15 meq/ Multivitamins 10 ml/Chromium/ Copper/Manganese/ Seleni/Zn 0.5 ml/ Insulin Human Regular 35 unit/ Total Parenteral Nutrition/Amino Acids/Dextrose/ Fat Emulsion Intravenous 1,400 ml @ 58.333 mls/ hr TPN CONT IV Last administered on 08/07/19at 22:46; Start 08/07/19 at 22:00; Stop 08/08/19 at 21:59; Status DC Sodium Chloride 100 meq/Potassium Chloride 40 meq/ Magnesium Sulfate 20 meq/Calcium Gluconate 15 meq/ Multivitamins 10 ml/Chromium/ Copper/Manganese/ Seleni/Zn 0.5 ml/ Insulin Human Regular 35 unit/ Total Parenteral Nutrition/Amino Acids/Dextrose/ Fat Emulsion Intravenous 1,400 ml @ 58.333 mls/ hr TPN CONT IV Last administered on 08/08/19at 22:31; Start 08/08/19 at 22:00; Stop 08/09/19 at 21:59; Status DC Fentanyl Citrate (Fentanyl 2ml Vial) 50 mcg PRN Q2HR PRN IVP PAIN Last administered on 08/15/19at 13:32; Start 08/08/19 at 21:00; Stop 08/16/19 at 12:5 3; Status DC Fentanyl Citrate (Fentanyl 2ml Vial) 25 mcg PRN Q2HR PRN IVP PAIN; Start 08/08/19 at 21:00; Stop 08/16/19 at 12:54; Status DC Enoxaparin Sodium (Lovenox 100mg Syringe) 100 mg Q12HR SQ ; Start 08/09/19 at 21:00; Status UNV Amino Acids/ Glycerin/ Electrolytes 1,000 ml @ 75 mls/hr [id number] IV ; Start 08/08/19 at 21:15; Status UNV Sodium Chloride 1,000 ml @ 1,000 mls/hr Q1H PRN IV hypotension; Start 08/09/19 at 07:56; Stop 08/09/19 at 13:55; Status DC Albumin Human 200 ml @ 200 mls/hr 1X PRN PRN IV Hypotension Last administered on 08/09/19at 08:40; Start 08/09/19 at 08:00; Stop 08/09/19 at 13:59; Status DC Sodium Chloride 1,000 ml @ 400 mls/hr Q2H30M PRN IV PATENCY; Start 08/09/19 at 07:56; Stop 08/09/19 at 19:55; Status DC Info (PHARMACY MONITORING -- do not chart) 1 each PRN DAILY PRN MC SEE COMMENTS; Start 08/09/19 at 08:00; Status UNV Info (PHARMACY MONITORING -- do not chart) 1 each PRN DAILY PRN MC SEE COMMENTS; Start 08/09/19 at 08:00; Status UNV Daptomycin 430 mg/ Sodium Chloride 50 ml @ 100 mls/hr Q24H IV Last administered on 08/09/19at 12:35; Start 08/09/19 at 09:00; Stop 08/09/19 at 12:49; Status DC Sodium Chloride 100 meq/Potassium Chloride 40 meq/ Magnesium Sulfate 20 meq/Calcium Gluconate 15 meq/ Multivitamins 10 ml/Chromium/ Copper/Manganese/ Seleni/Zn 0.5 ml/ Insulin Human Regular 35 unit/ Total Parenteral Nutrition/Amino Acids/Dextrose/ Fat Emulsion Intravenous 1,400 ml @ 58.333 mls/ hr TPN CONT IV Last administered on 08/09/19at 21:26; Start 08/09/19 at 22:00; Stop 08/10/19 at 21:59; Status DC Daptomycin 430 mg/ Sodium Chloride 50 ml @ 100 mls/hr Q48H IV ; Start 08/11/19 at 09:00; Stop 08/10/19 at 11:55; Status DC Sodium Chloride 100 meq/Potassium Chloride 40 meq/ Magnesium Sulfate 20 meq/Calcium Gluconate 15 meq/ Multivitamins 10 ml/Chromium/ Copper/Manganese/ Seleni/Zn 0.5 ml/ Insulin Human Regular 35 unit/ Total Parenteral Nutrition/Ami no Acids/Dextrose/ Fat Emulsion Intravenous 1,400 ml @ 58.333 mls/ hr TPN CONT IV Last administered on 08/10/19at 22:27; Start 08/10/19 at 22:00; Stop 08/11/19 at 21:59; Status DC Daptomycin 430 mg/ Sodium Chloride 50 ml @ 100 mls/hr Q24H IV Last admi nistered on 08/12/19at 15:07; Start 08/10/19 at 13:00; Stop 08/13/19 at 13:15; Status DC Sodium Chloride 100 meq/Potassium Chloride 40 meq/ Magnesium Sulfate 20 meq/Calcium Gluconate 10 meq/ Multivitamins 10 ml/Chromium/ Copper/Manganese/ Seleni/Zn 0.5 ml/ Insulin Human Regular 35 unit/ Total Parenteral Nutrition/Amino Acids/Dextrose/ Fat Emulsion Intravenous 1,400 ml @ 58.333 mls/ hr TPN CONT IV Last administered on 08/12/19at 00:06; Start 08/11/19 at 22:00; Stop 08/12/19 at 21:59; Status DC Alteplase, Recombinant (Cathflo For Central Catheter Clearance) 1 mg 1X ONCE INT CAT Last administered on 08/12/19at 11:44; Start 08/12/19 at 10:45; Stop 08/12/19 at 10:46; Status DC Ondansetron HCl (Zofran) 4 mg PRN Q6HRS PRN IV NAUSEA/VOMITING; Start 08/15/19 at 07:00; Stop 08/16/19 at 06:59; Status DC Fentanyl Citrate (Fentanyl 2ml Vial) 25 mcg PRN Q5MIN PRN IV MILD PAIN 1-3; Start 08/15/19 at 07:00; Stop 08/16/19 at 06:59; Status DC Fentanyl Citrate (Fentanyl 2ml Vial) 50 mcg PRN Q5MIN PRN IV MODERATE TO SEVERE PAIN Last administered on 08/15/19at 10:17; Start 08/15/19 at 07:00; Stop 08/16/19 at 06:59; Status DC Ringer's Solution 1,000 ml @ 30 mls/hr Q24H IV ; Start 08/15/19 at 07:00; Stop 08/15/19 at 18:59; Status DC Lidocaine HCl (Xylocaine-Mpf 1% 2ml Vial) 2 ml PRN 1X PRN ID PRIOR TO IV START; Start 08/15/19 at 07:00; Stop 08/16/19 at 06:59; Status DC Prochlorperazine Edisylate (Compazine) 5 mg PACU PRN PRN IV NAUSEA, MRX1; Start 08/15/19 at 07:00; Stop 08/16/19 at 06:59; Status DC Sodium Acetate 50 meq/Potassium Acetate 55 meq/ Magnesium Sulfate 20 meq/Calcium Gluconate 10 meq/ Multivitamins 10 ml/Chromium/ Copper/Manganese/ Seleni/Zn 0.5 ml/ Insulin Human Regular 35 unit/ Total Parenteral Nutrition/Amino Acids/Dextrose/ Fat Emulsion Intravenous 1,400 ml @ 58.333 mls/ hr TPN CONT IV ; Start 08/12/19 at 22:00; Stop 08/12/19 at 14:15; Status DC Sodium Acetate 50 meq/Potassium Acetate 55 meq/ Magnesium Sulfate 20 meq/Calcium Gluconate 10 meq/ Multivitamins 10 ml/Chromium/ Copper/Manganese/ Seleni/Zn 0.5 ml/ Insulin Human Regular 35 unit/ Total Parenteral Nutrition/Amino Acids/Dextrose/ Fat Emulsion Intravenous 1,800 ml @ 75 mls/hr TPN CONT IV Last administered on 08/12/19at 22:38; Start 08/12/19 at 22:00; Stop 08/13/19 at 21:59; Status DC Sodium Chloride 1,000 ml @ 1,000 mls/hr Q1H PRN IV hypotension; Start 08/12/19 at 15:31; Stop 08/12/19 at 21:30; Status DC Diphenhydramine HCl (Benadryl) 25 mg 1X PRN PRN IV ITCHING; Start 08/12/19 at 15:45; Stop 08/13/19 at 15:44; Status DC Diphenhydramine HCl (Benadryl) 25 mg 1X PRN PRN IV ITCHING; Start 08/12/19 at 15:45; Stop 08/13/19 at 15:44; Status DC Sodium Chloride 1,000 ml @ 400 mls/hr Q2H30M PRN IV PATENCY; Start 08/12/19 at 15:31; Stop 08/13/19 at 03:30; Status DC Info (PHARMACY MONITORING -- do not chart) 1 each PRN DAILY PRN MC SEE COMMENTS; Start 08/12/19 at 15:45; Stop 09/13/19 at 14:14; Status DC Sodium Acetate 50 meq/Potassium Acetate 55 meq/ Magnesium Sulfate 20 meq/Calcium Gluconate 10 meq/ Multivitamins 10 ml/Chromium/ Copper/Manganese/ Seleni/Zn 0.5 ml/ Insulin Human Regular 35 unit/ Total Parenteral Nutrition/Amino Acids/Dextrose/ Fat Emulsion Intravenous 1,800 ml @ 75 mls/hr TPN CONT IV Last administered on 08/13/19at 22:03; Start 08/13/19 at 22:00; Stop 08/14/19 at 21:59; Status DC Daptomycin 430 mg/ Sodium Chloride 50 ml @ 100 mls/hr Q24H IV Last administered on 08/18/19at 13:00; Start 08/13/19 at 13:00; Stop 08/18/19 at 20:58; Status DC Heparin Sodium (Porcine) 1000 unit/Sodium Chloride 1,001 ml @ 1,001 mls/hr 1X ONCE IRR ; Start 08/15/19 at 06:00; Stop 08/15/19 at 06:59; Status DC Potassium Acetate 55 meq/Magnesium Sulfate 20 meq/ Calcium Gluconate 10 meq/ Multivitamins 10 ml/Chromium/ Copper/Manganese/ Seleni/Zn 0.5 ml/ Insulin Human Regular 35 unit/ Total Parenteral Nutrition/Amino Acids/Dextrose/ Fat Emulsion Intravenous 1,920 ml @ 80 mls/hr TPN CONT IV Last administered on 08/14/19at 22:10; Start 08/14/19 at 22:00; Stop 08/15/19 at 21:59; Status DC Dexamethasone Sodium Phosphate (Decadron) 4 mg STK-MED ONCE .ROUTE ; Start 08/15/19 at 10:56; Stop 08/15/19 at 10:57; Status DC Ondansetron HCl (Zofran) 4 mg STK-MED ONCE .ROUTE ; Start 08/15/19 at 10:56; Stop 08/15/19 at 10:57; Status DC Rocuronium [place] (Zemuron) 50 mg STK-MED ONCE .ROUTE ; Start 08/15/19 at 10:56; Stop 08/15/19 at 10:57; Status DC Fentanyl Citrate (Fentanyl 2ml Vial) 100 mcg STK-MED ONCE .ROUTE ; Start 08/15/19 at 10:56; Stop 08/15/19 at 10:57; Status DC Bupivacaine HCl/ Epinephrine Bitart (Sensorcain-Epi 0.5%-1:710585 Mpf) 30 ml STK-MED ONCE .ROUTE Last administered on 08/15/19at 12:01; Start 08/15/19 at 10:58; Stop 08/15/19 at 10:58; Status DC Cellulose (Surgicel Hemostat 2x14) 1 each STK-MED ONCE .ROUTE ; Start 08/15/19 at 10:58; Stop 08/15/19 at 10:59; Status DC Iohexol (Omnipaque 300 Mg/ml) 50 ml STK-MED ONCE .ROUTE ; Start 08/15/19 at 10:58; Stop 08/15/19 at 10:59; Status DC Cellulose (Surgicel Hemostat 4x8) 1 each STK-MED ONCE .ROUTE ; Start 08/15/19 at 10:58; Stop 08/15/19 at 10:59; Status DC Bisacodyl (Dulcolax Supp) 10 mg STK-MED ONCE .ROUTE ; Start 08/15/19 at 10:59; Stop 08/15/19 at 10:59; Status DC Heparin Sodium (Porcine) 1000 unit/Sodium Chloride 1,001 ml @ 1,001 mls/hr 1X ONCE IRR ; Start 08/15/19 at 12:00; Stop 08/15/19 at 12:59; Status DC Propofol 20 ml @ As Directed STK-MED ONCE IV ; Start 08/15/19 at 11:05; Stop 08/15/19 at 11:05; Status DC Sevoflurane (Ultane) 90 ml STK-MED ONCE IH ; Start 08/15/19 at 11:05; Stop 08/15/19 at 11:05; Status DC Sevoflurane (Ultane) 60 ml STK-MED ONCE IH ; Start 08/15/19 at 12:26; Stop 08/15/19 at 12:27; Status DC Propofol 20 ml @ As Directed STK-MED ONCE IV ; Start 08/15/19 at 12:26; Stop 08/15/19 at 12:27; Status DC Phenylephrine HCl (PHENYLEPHRINE in 0.9% NACL PF) 1 mg STK-MED ONCE IV ; Start 08/15/19 at 12:34; Stop 08/15/19 at 12:34; Status DC Heparin Sodium (Porcine) (Heparin Sodium) 5,000 unit Q12HR SQ Last administered on 08/24/19at 20:57; Start 08/15/19 at 21:00; Stop 08/25/19 at 09:59; Status DC Sodium Chloride (Normal Saline Flush) 3 ml QSHIFT PRN IV AFTER MEDS AND BLOOD DRAWS; Start 08/15/19 at 13:45 Naloxone HCl (Narcan) 0.4 mg PRN Q2MIN PRN IV SEE INSTRUCTIONS Last administered on 09/24/19at 15:15; Start 08/15/19 at 13:45 Sodium Chloride 1,000 ml @ 25 mls/hr Q24H IV Last administered on 09/13/19at 13:37; Start 08/15/19 at 13:37; Stop 09/16/19 at 13:09; Status DC Naloxone HCl (Narcan) 0.4 mg PRN Q2MIN PRN IV SEE INSTRUCTIONS; Start 08/15/19 at 14:30; Status UNV Sodium Chloride 1,000 ml @ 25 mls/hr Q24H IV ; Start 08/15/19 at 14:30; Status UNV Hydromorphone HCl 30 ml @ 0 mls/hr CONT PRN PRN IV PER PROTOCOL Last administered on 08/20/19at 16:08; Start 08/15/19 at 14:30; Stop 08/22/19 at 08:55; Status DC Potassium Acetate 55 meq/Magnesium Sulfate 20 meq/ Calcium Gluconate 10 meq/ Multivitamins 10 ml/Chromium/ Copper/Manganese/ Seleni/Zn 0.5 ml/ Insulin Human Regular 35 unit/ Total Parenteral Nutrition/Amino Acids/Dextrose/ Fat Emulsion Intravenous 1,920 ml @ 80 mls/hr TPN CONT IV Last administered on 08/15/19at 22:01; Start 08/15/19 at 22:00; Stop 08/16/19 at 21:59; Status DC Bumetanide (Bumex) 2 mg [id number] IV Last administered on 08/19/19at 13:50; Start 08/16/19 at 14:00; Stop 08/20/19 at 14:10; Status DC Meropenem 1 gm/ Sodium Chloride 100 ml @ 200 mls/hr Q8HRS IV Last administered on 09/09/19at 05:53; Start 08/16/19 at 14:00; Stop 09/09/19 at 09:31; Status DC Potassium Acetate 55 meq/Magnesium Sulfate 20 meq/ Calcium Gluconate 10 meq/ Multivitamins 10 ml/Chromium/ Copper/Manganese/ Seleni/Zn 0.5 ml/ Insulin Human Regular 35 unit/ Total Parenteral Nutrition/Amino Acids/Dextrose/ Fat Emulsion Intravenous 1,920 ml @ 80 mls/hr TPN CONT IV Last administered on 08/16/19at 22:02; Start 08/16/19 at 22:00; Stop 08/17/19 at 21:59; Status DC Hydromorphone HCl (Dilaudid Standard COREMAKER PIPE) 12 mg STK-MED ONCE IV ; Start 08/15/19 at 14:35; Stop 08/16/19 at 13:53; Status DC Artificial Tears (Artificial Tears) 1 drop PRN Q15MIN PRN OU DRY EYE Last administered on 10/03/19at 03:38; Start 08/17/19 at 05:30 Hydromorphone HCl (Dilaudid Standard COREMAKER PIPE) 12 mg STK-MED ONCE IV ; Start 08/16/19 at 12:05; Stop 08/17/19 at 09:15; Status DC Potassium Acetate 65 meq/Magnesium Sulfate 20 meq/ Calcium Gluconate 10 meq/ Multivitamins 10 ml/Chromium/ Copper/Manganese/ Seleni/Zn 0.5 ml/ Insulin Human Regular 30 unit/ Total Parenteral Nutrition/Amino Acids/Dextrose/ Fat Emulsion Intravenous 1,920 ml @ 80 mls/hr TPN CONT IV Last administered on 08/17/19at 22:22; Start 08/17/19 at 22:00; Stop 08/18/19 at 21:59; Status DC Cyclobenzaprine HCl (Flexeril) 10 mg PRN Q6HRS PRN PO MUSCLE SPASMS; Start 08/18/19 at 10:45 Potassium Acetate 55 meq/Magnesium Sulfate 20 meq/ Calcium Gluconate 10 meq/ Multivitamins 10 ml/Chromium/ Copper/Manganese/ Seleni/Zn 0.5 ml/ Insulin Human Regular 30 unit/ Total Parenteral Nutrition/Amino Acids/Dextrose/ Fat Emulsion Intravenous 1,920 ml @ 80 mls/hr TPN CONT IV Last administered on 08/19/19at 01:00; Start 08/18/19 at 22:00; Stop 08/19/19 at 21:59; Status DC Magnesium Sulfate 50 ml @ 25 mls/hr 1X ONCE IV Last administered on 08/18/19at 17:18; Start 08/18/19 at 12:45; Stop 08/18/19 at 14:44; Status DC Potassium Chloride/Water 100 ml @ 100 mls/hr 1X ONCE IV Last administered on 08/19/19at 11:27; Start 08/19/19 at 12:00; Stop 08/19/19 at 12:59; Status DC Hydromorphone HCl (Dilaudid Standard COREMAKER PIPE) 12 mg STK-MED ONCE IV ; Start 08/17/19 at 10:50; Stop 08/19/19 at 11:02; Status DC Hydromorphone HCl (Dilaudid Standard COREMAKER PIPE) 12 mg STK-MED ONCE IV ; Start 08/18/19 at 13:47; Stop 08/19/19 at 11:03; Status DC Potassium Acetate 30 meq/Magnesium Sulfate 20 meq/ Calcium Gluconate 10 meq/ Multivitamins 10 ml/Chromium/ Copper/Manganese/ Seleni/Zn 0.5 ml/ Insulin Human Regular 30 unit/ Potassium Chloride 30 meq/ Total Parenteral Nutrition/Amino Acids/Dextrose/ Fat Emulsion Intravenous 1,920 ml @ 80 mls/hr TPN CONT IV Last administered on 08/19/19at 22:34; Start 08/19/19 at 22:00; Stop 08/20/19 at 21:59; Status DC Potassium Chloride/Water 100 ml @ 100 mls/hr Q1H IV Last administered on 08/20/19at 13:05; Start 08/20/19 at 07:00; Stop 08/20/19 at 10:59; Status DC Magnesium Sulfate 50 ml @ 25 mls/hr 1X ONCE IV Last administered on 08/20/19at 10:34; Start 08/20/19 at 10:30; Stop 08/20/19 at 12:29; Status DC Potassium Chloride 75 meq/ Magnesium Sulfate 20 meq/Calcium Gluconate 10 meq/ Multivitamins 10 ml/Chromium/ Copper/Manganese/ Seleni/Zn 0.5 ml/ Insulin Human Regular 30 unit/ Total Parenteral Nutrition/Amino Acids/Dextrose/ Fat Emulsion Intravenous 1,920 ml @ 80 mls/hr TPN CONT IV Last administered on 08/20/19at 21:51; Start 08/20/19 at 22:00; Stop 08/21/19 at 22:00; Status DC Potassium Chloride 75 meq/ Magnesium Sulfate 20 meq/Calcium Gluconate 10 meq/ Multivitamins 10 ml/Chromium/ Copper/Manganese/ Seleni/Zn 0.5 ml/ Insulin Human Regular 25 unit/ Total Parenteral Nutrition/Amino Acids/Dextrose/ Fat Emulsion Intravenous 1,920 ml @ 80 mls/hr TPN CONT IV Last administered on 08/21/19at 22:04; Start 08/21/19 at 22:00; Stop 08/22/19 at 21:59; Status DC Hydromorphone HCl (Dilaudid) 0.4 mg PRN Q4HRS PRN IVP PAIN Last administered on 08/22/19at 10:57; Start 08/22/19 at 09:00; Stop 08/22/19 at 18:59; Status DC Micafungin Sodium 100 mg/Dextrose 100 ml @ 100 mls/hr Q24H IV Last administered on 09/13/19at 12:17; Start 08/22/19 at 11:00; Stop 09/14/19 at 09:59; Status DC Daptomycin 485 mg/ Sodium Chloride 50 ml @ 100 mls/hr Q24H IV Last administered on 08/29/19at 13:10; Start 08/22/19 at 11:00; Stop 08/30/19 at 07:44; Status DC Potassium Chloride 75 meq/ Magnesium Sulfate 15 meq/Calcium Gluconate 8 meq/ Multivitamins 10 ml/Chromium/ Copper/Manganese/ Seleni/Zn 0.5 ml/ Insulin Human Regular 25 unit/ Total Parenteral Nutrition/Amino Acids/Dextrose/ Fat Emulsion Intravenous 1,920 ml @ 80 mls/hr TPN CONT IV Last administered on 08/22/19at 23:08; Start 08/22/19 at 22:00; Stop 08/23/19 at 21:59; Status DC Haloperidol Lactate (Haldol Inj) 3 mg 1X ONCE IVP Last administered on 08/22/19at 14:37; Start 08/22/19 at 14:30; Stop 08/22/19 at 14:31; Status DC Hydromorphone HCl (Dilaudid) 1 mg PRN Q4HRS PRN IVP PAIN Last administered on 09/05/19at 06:25; Start 08/22/19 at 19:00; Stop 09/05/19 at 17:10; Status DC Potassium Chloride 75 meq/ Magnesium Sulfate 15 meq/Calcium Gluconate 8 meq/ Multivitamins 10 ml/Chromium/ Copper/Manganese/ Seleni/Zn 0.5 ml/ Insulin Human Regular 20 unit/ Total Parenteral Nutrition/Amino Acids/Dextrose/ Fat Emulsion Intravenous 1,920 ml @ 80 mls/hr TPN CONT IV Last administered on 08/23/19at 22:10; Start 08/23/19 at 22:00; Stop 08/24/19 at 21:59; Status DC Lidocaine HCl (Buffered Lidocaine 1%) 3 ml STK-MED ONCE .ROUTE ; Start 08/24/19 at 11:31; Stop 08/24/19 at 11:31; Status DC Lidocaine HCl (Buffered Lidocaine 1%) 3 ml STK-MED ONCE .ROUTE ; Start 08/24/19 at 12:28; Stop 08/24/19 at 12:29; Status DC Lidocaine HCl (Buffered Lidocaine 1%) 6 ml 1X ONCE INJ Last administered on 08/24/19at 12:53; Start 08/24/19 at 12:45; Stop 08/24/19 at 12:46; Status DC Potassium Chloride 75 meq/ Magnesium Sulfate 15 meq/Calcium Gluconate 8 meq/ Multivitamins 10 ml/Chromium/ Copper/Manganese/ Seleni/Zn 0.5 ml/ Insulin Human Regular 20 unit/ Total Parenteral Nutrition/Amino Acids/Dextrose/ Fat Emulsion Intravenous 1,920 ml @ 80 mls/hr TPN CONT IV Last administered on 08/24/19at 22:00; Start 08/24/19 at 22:00; Stop 08/25/19 at 21:59; Status DC Potassium Chloride 75 meq/ Magnesium Sulfate 15 meq/Calcium Gluconate 8 meq/ Multivitamins 10 ml/Chromium/ Copper/Manganese/ Seleni/Zn 0.5 ml/ Insulin Human Regular 15 unit/ Total Parenteral Nutrition/Amino Acids/Dextrose/ Fat Emulsion Intravenous 1,920 ml @ 80 mls/hr TPN CONT IV Last administered on 08/25/19at 22:28; Start 08/25/19 at 22:00; Stop 08/26/19 at 21:59; Status DC Vecuronium [place] (Norcuron Bolus) 6 mg PRN Q6HRS PRN IV VENT ASYNCHRONY; Start 08/25/19 at 19:15; Stop 08/25/19 at 19:35; Status DC Bumetanide (Bumex) 2 mg 1X ONCE IV Last administered on 08/25/19at 22:09; Start 08/25/19 at 19:45; Stop 08/25/19 at 19:46; Status DC Lidocaine HCl (Buffered Lidocaine 1%) 3 ml STK-MED ONCE .ROUTE ; Start 08/26/19 at 07:59; Stop 08/26/19 at 07:59; Status DC Midazolam HCl (Versed) 5 mg STK-MED ONCE .ROUTE ; Start 08/26/19 at 08:36; Stop 08/26/19 at 08:36; Status DC Fentanyl Citrate (Fentanyl 5ml Vial) 250 mcg STK-MED ONCE .ROUTE ; Start 08/26/19 at 08:36; Stop 08/26/19 at 08:37; Status DC Lidocaine HCl (Buffered Lidocaine 1%) 3 ml 1X ONCE IJ Last administered on 08/26/19at 09:30; Start 08/26/19 at 09:15; Stop 08/26/19 at 09:16; Status DC Midazolam HCl (Versed) 5 mg 1X ONCE IV Last administered on 08/26/19at 09:30; Start 08/26/19 at 09:15; Stop 08/26/19 at 09:16; Status DC Fentanyl Citrate (Fentanyl 5ml Vial) 250 mcg 1X ONCE IV Last administered on 08/26/19at 09:30; Start 08/26/19 at 09:15; Stop 08/26/19 at 09:16; Status DC Bumetanide (Bumex) 2 mg DAILY IV Last administered on 09/05/19at 08:07; Start 08/26/19 at 10:00; Stop 09/05/19 at 17:15; Status DC Potassium Chloride 75 meq/ Magnesium Sulfate 15 meq/ Multivitamins 10 ml/Chromium/ Copper/Manganese/ Seleni/Zn 0.5 ml/ Insulin Human Regular 15 unit/ Total Parenteral Nutrition/Amino Acids/Dextrose/ Fat Emulsion Intravenous 1,920 ml @ 80 mls/hr TPN CONT IV Last administered on 08/26/19at 21:59; Start 08/26/19 at 22:00; Stop 08/27/19 at 21:59; Status DC Metoclopramide HCl (Reglan Vial) 10 mg PRN Q3HRS PRN IVP NAUSEA/VOMITING-3rd choice Last administered on 09/01/19at 04:25; Start 08/27/19 at 16:45 Potassium Chloride 75 meq/ Magnesium Sulfate 15 meq/ Multivitamins 10 ml/Chromium/ Copper/Manganese/ Seleni/Zn 0.5 ml/ Insulin Human Regular 15 unit/ Total Parenteral Nutrition/Amino Acids/Dextrose/ Fat Emulsion Intravenous 1,920 ml @ 80 mls/hr TPN CONT IV Last administered on 08/27/19at 22:41; Start 08/27/19 at 22:00; Stop 08/28/19 at 21:59; Status DC Magnesium Sulfate 50 ml @ 25 mls/hr 1X ONCE IV Last administered on 08/28/19at 10:44; Start 08/28/19 at 09:00; Stop 08/28/19 at 10:59; Status DC Potassium Chloride/Water 100 ml @ 100 mls/hr 1X ONCE IV Last administered on 08/28/19at 09:37; Start 08/28/19 at 09:00; Stop 08/28/19 at 09:59; Status DC Duloxetine HCl (Cymbalta) 30 mg DAILY PO Last administered on 08/29/19at 09:48; Start 08/28/19 at 14:00; Stop 08/31/19 at 10:25; Status DC Potassium Chloride 80 meq/ Magnesium Sulfate 20 meq/ Multivitamins 10 ml/Chromium/ Copper/Manganese/ Seleni/Zn 0.5 ml/ Insulin Human Regular 15 unit/ Total Parenteral Nutrition/Amino Acids/Dextrose/ Fat Emulsion Intravenous 1,920 ml @ 80 mls/hr TPN CONT IV Last administered on 08/28/19at 21:42; Start 08/28/19 at 22:00; Stop 08/29/19 at 21:59; Status DC Potassium Chloride 80 meq/ Magnesium Sulfate 20 meq/ Multivitamins 10 ml/Chromium/ Copper/Manganese/ Seleni/Zn 0.5 ml/ Insulin Human Regular 15 unit/ Total Parenteral Nutrition/Amino Acids/Dextrose/ Fat Emulsion Intravenous 1,920 ml @ 80 mls/hr TPN CONT IV Last administered on 08/29/19at 22:20; Start 08/29/19 at 22:00; Stop 08/30/19 at 21:59; Status DC Lidocaine HCl (Buffered Lidocaine 1%) 3 ml STK-MED ONCE .ROUTE ; Start 08/30/19 at 09:54; Stop 08/30/19 at 09:55; Status DC Hydromorphone HCl (Dilaudid Standard COREMAKER PIPE) 12 mg STK-MED ONCE IV ; Start 08/19/19 at 15:50; Stop 08/30/19 at 11:24; Status DC Potassium Chloride 80 meq/ Magnesium Sulfate 20 meq/ Multivitamins 10 ml/Chromium/ Copper/Manganese/ Seleni/Zn 0.5 ml/ Insulin Human Regular 15 unit/ Total Parenteral Nutrition/Amino Acids/Dextrose/ Fat Emulsion Intravenous 1,920 ml @ 80 mls/hr TPN CONT IV Last administered on 08/30/19at 21:40; Start 08/30/19 at 22:00; Stop 08/31/19 at 21:59; Status DC Lidocaine HCl (Buffered Lidocaine 1%) 6 ml 1X ONCE INJ Last administered on 08/30/19at 14:15; Start 08/30/19 at 14:15; Stop 08/30/19 at 14:16; Status DC Potassium Chloride 80 meq/ Magnesium Sulfate 20 meq/ Multivitamins 10 ml/Chromium/ Copper/Manganese/ Seleni/Zn 1 ml/ Insulin Human Regular 15 unit/ Total Parenteral Nutrition/Amino Acids/Dextrose/ Fat Emulsion Intravenous 1,920 ml @ 80 mls/hr TPN CONT IV Last administered on 08/31/19at 22:04; Start 08/31/19 at 22:00; Stop 09/01/19 at 21:59; Status DC Potassium Chloride/Water 100 ml @ 100 mls/hr 1X ONCE IV Last administered on 09/01/19at 11:34; Start 09/01/19 at 11:00; Stop 09/01/19 at 11:59; Status DC Potassium Chloride 90 meq/ Magnesium Sulfate 20 meq/ Multivitamins 10 ml/Chromium/ Copper/Manganese/ Seleni/Zn 1 ml/ Insulin Human Regular 15 unit/ Total Parenteral Nutrition/Amino Acids/Dextrose/ Fat Emulsion Intravenous 1,920 ml @ 80 mls/hr TPN CONT IV Last administered on 09/01/19at 22:57; Start 09/01/19 at 22:00; Stop 09/02/19 at 21:59; Status DC Potassium Chloride 90 meq/ Magnesium Sulfate 20 meq/ Multivitamins 10 ml/Chromium/ Copper/Manganese/ Seleni/Zn 1 ml/ Insulin Human Regular 15 unit/ Total Parenteral Nutrition/Amino Acids/Dextrose/ Fat Emulsion Intravenous 1,920 ml @ 80 mls/hr TPN CONT IV Last administered on 09/02/19at 22:48; Start 09/02/19 at 22:00; Stop 09/03/19 at 21:59; Status DC Potassium Chloride 90 meq/ Magnesium Sulfate 20 meq/ Multivitamins 10 ml/Chromium/ Copper/Manganese/ Seleni/Zn 1 ml/ Insulin Human Regular 15 unit/ Total Parenteral Nutrition/Amino Acids/Dextrose/ Fat Emulsion Intravenous 1,890 ml @ 78.75 mls/ hr TPN CONT IV Last administered on 09/03/19at 22:15; Start 09/03/19 at 22:00; Stop 09/04/19 at 21:59; Status DC Linezolid/Dextrose 300 ml @ 300 mls/hr Q12HR IV Last administered on 09/06/19at 21:08; Start 09/04/19 at 09:00; Stop 09/07/19 at 08:11; Status DC Daptomycin 450 mg/ Sodium Chloride 50 ml @ 100 mls/hr Q24H IV Last administered on 09/07/19at 09:25; Start 09/04/19 at 09:00; Stop 09/08/19 at 08:30; Status DC Potassium Chloride 90 meq/ Magnesium Sulfate 20 meq/ Multivitamins 10 ml/Chromium/ Copper/Manganese/ Seleni/Zn 1 ml/ Insulin Human Regular 15 unit/ Total Parenteral Nutrition/Amino Acids/Dextrose/ Fat Emulsion Intravenous 1,890 ml @ 78.75 mls/ hr TPN CONT IV Last administered on 09/04/19at 21:34; Start 09/04/19 at 22:00; Stop 09/05/19 at 21:59; Status DC Lorazepam (Ativan Inj) 2 mg STK-MED ONCE .ROUTE ; Start 09/04/19 at 14:58; Stop 09/04/19 at 14:58; Status DC Metoprolol Tartrate (Lopressor Vial) 5 mg 1X ONCE IVP Last administered on 09/04/19at 15:31; Start 09/04/19 at 15:15; Stop 09/04/19 at 15:16; Status DC Lorazepam (Ativan Inj) 2 mg 1X ONCE IVP Last administered on 09/04/19at 15:30; Start 09/04/19 at 15:15; Stop 09/04/19 at 15:16; Status DC Enoxaparin Sodium (Lovenox 40mg Syringe) 40 mg Q24H SQ Last administered on 09/23/19at 17:44; Start 09/04/19 at 17:00; Stop 09/25/19 at 06:50; Status DC Lorazepam (Ativan Inj) 1 mg PRN Q4HRS PRN IVP ANXIETY / AGITATION MILD-MOD Last administered on 09/18/19at 15:55; Start 09/04/19 at 19:15; Stop 09/20/19 at 11:45; Status DC Lorazepam (Ativan Inj) 2 mg PRN Q4HRS PRN IVP ANXIETY / AGITATION SEVERE Last administered on 09/19/19at 07:55; Start 09/04/19 at 19:15; Stop 09/20/19 at 11:45; Status DC Fentanyl Citrate (Fentanyl 2ml Vial) 50 mcg PRN Q4HRS PRN IVP SEVERE PAIN Last administered on 10/01/19at 05:15; Start 09/05/19 at 13:15; Stop 10/02/19 at 09:29; Status DC Fentanyl Citrate (Fentanyl 2ml Vial) 25 mcg PRN Q4HRS PRN IVP MODERATE PAIN Last administered on 10/01/19at 00:27; Start 09/05/19 at 13:15; Stop 10/02/19 at 09:30; Status DC Potassium Chloride 90 meq/ Magnesium Sulfate 20 meq/ Multivitamins 10 ml/Chromium/ Copper/Manganese/ Seleni/Zn 1 ml/ Insulin Human Regular 15 unit/ Total Parenteral Nutrition/Amino Acids/Dextrose/ Fat Emulsion Intravenous 1,890 ml @ 78.75 mls/ hr TPN CONT IV Last administered on 09/05/19at 22:18; Start 09/05/19 at 22:00; Stop 09/06/19 at 21:59; Status DC Furosemide (Lasix) 40 mg 1X ONCE IVP Last administered on 09/05/19at 21:51; Start 09/05/19 at 21:45; Stop 09/05/19 at 21:48; Status DC Albumin Human 100 ml @ 100 mls/hr 1X PRN PRN IV SEE COMMENTS; Start 09/06/19 at 01:30 Furosemide (Lasix) 40 mg [id number] IVP Last administered on 09/21/19at 08:04; Start 09/06/19 at 14:00; Stop 09/21/19 at 13:07; Status DC Potassium Chloride 90 meq/ Magnesium Sulfate 20 meq/ Multivitamins 10 ml/Chromium/ Copper/Manganese/ Seleni/Zn 1 ml/ Insulin Human Regular 15 unit/ Total Parenteral Nutrition/Amino Acids/Dextrose/ Fat Emulsion Intravenous 1,800 ml @ 75 mls/hr TPN CONT IV Last administered on 09/06/19at 22:31; Start 09/06/19 at 22:00; Stop 09/07/19 at 21:59; Status DC Potassium Chloride 90 meq/ Magnesium Sulfate 20 meq/ Multivitamins 10 ml/Ch romium/ Copper/Manganese/ Seleni/Zn 1 ml/ Insulin Human Regular 15 unit/ Total Parenteral Nutrition/Amino Acids/Dextrose/ Fat Emulsion Intravenous 1,800 ml @ 75 mls/hr TPN CONT IV Last administered on 09/07/19at 22:28; Start 09/07/19 at 22:00; Stop 09/08/19 at 21:59; Status DC Potassium Chloride 110 meq/ Magnesium Sulfate 20 meq/ Multivitamins 10 ml/Chromium/ Copper/Manganese/ Seleni/Zn 1 ml/ Insulin Human Regular 15 unit/ Total Parenteral Nutrition/Amino Acids/Dextrose/ Fat Emulsion Intravenous 1,800 ml @ 75 mls/hr TPN CONT IV Last administered on 09/08/19at 22:01; Start 09/08/19 at 22:00; Stop 09/09/19 at 21:59; Status DC Saliva Substitute (Biotene Moisturizing Mouth) 2 spray PRN Q15MIN PRN PO DRY MOUTH; Start 09/08/19 at 11:00 Potassium Chloride 110 meq/ Magnesium Sulfate 20 meq/ Multivitamins 10 ml/Chromium/ Copper/Manganese/ Seleni/Zn 1 ml/ Insulin Human Regular 15 unit/ Total Parenteral Nutrition/Amino Acids/Dextrose/ Fat Emulsion Intravenous 1,800 ml @ 75 mls/hr TPN CONT IV Last administered on 09/09/19at 22:21; Start 09/09/19 at 22:00; Stop 09/10/19 at 21:59; Status DC Potassium Chloride 110 meq/ Magnesium Sulfate 20 meq/ Multivitamins 10 ml/Chromium/ Copper/Manganese/ Seleni/Zn 1 ml/ Insulin Human Regular 15 unit/ Total Parenteral Nutrition/Amino Acids/Dextrose/ Fat Emulsion Intravenous 1,800 ml @ 75 mls/hr TPN CONT IV Last administered on 09/10/19at 22:04; Start 09/10/19 at 22:00; Stop 09/11/19 at 21:59; Status DC Potassium Chloride 110 meq/ Magnesium Sulfate 20 meq/ Multivitamins 10 ml/C hromium/ Copper/Manganese/ Seleni/Zn 1 ml/ Insulin Human Regular 15 unit/ Total Parenteral Nutrition/Amino Acids/Dextrose/ Fat Emulsion Intravenous 1,800 ml @ 75 mls/hr TPN CONT IV Last administered on 09/11/19at 22:48; Start 09/11/19 at 22:00; Stop 09/12/19 at 21:59; Status DC Potassium Chloride 70 meq/ Magnesium Sulfate 20 meq/ Multivitamins 10 ml/Chromium/ Copper/Manganese/ Seleni/Zn 1 ml/ Insulin Human Regular 15 unit/ Total Parenteral Nutrition/Amino Acids/Dextrose/ Fat Emulsion Intravenous 1,800 ml @ 75 mls/hr TPN CONT IV Last administered on 09/12/19at 21:39; Start 09/12/19 at 22:00; Stop 09/13/19 at 21:59; Status DC Meropenem 500 mg/ Sodium Chloride 50 ml @ 100 mls/hr Q6HRS IV Last administered on 09/14/19at 06:02; Start 09/12/19 at 18:00; Stop 09/14/19 at 09:59; Status DC Barium Sulfate (Varibar Thin Liquid Apple) 148 gm 1X ONCE PO ; Start 09/13/19 at 11:45; Stop 09/13/19 at 11:49; Status DC Potassium Chloride 70 meq/ Magnesium Sulfate 20 meq/ Multivitamins 10 ml/Chromium/ Copper/Manganese/ Seleni/Zn 1 ml/ Insulin Human Regular 15 unit/ Total Parenteral Nutrition/Amino Acids/Dextrose/ Fat Emulsion Intravenous 1,800 ml @ 75 mls/hr TPN CONT IV Last administered on 09/13/19at 22:27; Start 09/13/19 at 22:00; Stop 09/14/19 at 21:59; Status DC Piperacillin Sod/ Tazobactam Sod 3.375 gm/Sodium Chloride 50 ml @ 100 mls/hr Q6HRS IV Last administered on 09/22/19at 06:10; Start 09/14/19 at 12:00; Stop 09/22/19 at 07:26; Status DC Potassium Chloride 70 meq/ Magnesium Sulfate 20 meq/ Multivitamins 10 ml /Chromium/ Copper/Manganese/ Seleni/Zn 1 ml/ Insulin Human Regular 15 unit/ Total Parenteral Nutrition/Amino Acids/Dextrose/ Fat Emulsion Intravenous 1,800 ml @ 75 mls/hr TPN CONT IV Last administered on 09/14/19at 22:03; Start 09/14/19 at 22:00; Stop 09/15/19 at 21:59; Status DC Potassium Chloride 70 meq/ Magnesium Sulfate 20 meq/ Multivitamins 10 ml/Chromium/ Copper/Manganese/ Seleni/Zn 1 ml/ Insulin Human Regular 15 unit/ Total Parenteral Nutrition/Amino Acids/Dextrose/ Fat Emulsion Intravenous 1,800 ml @ 75 mls/hr TPN CONT IV Last administered on 09/15/19at 22:33; Start 09/15/19 at 22:00; Stop 09/16/19 at 21:59; Status DC Potassium Chloride 70 meq/ Magnesium Sulfate 20 meq/ Multivitamins 10 ml/Chromium/ Copper/Manganese/ Seleni/Zn 1 ml/ Insulin Human Regular 15 unit/ Total Parenteral Nutrition/Amino Acids/Dextrose/ Fat Emulsion Intravenous 1,800 ml @ 75 mls/hr TPN CONT IV Last administered on 09/16/19at 23:13; Start 09/16/19 at 22:00; Stop 09/17/19 at 21:59; Status DC Potassium Chloride 80 meq/ Magnesium Sulfate 20 meq/ Multivitamins 10 ml/Chromium/ Copper/Manganese/ Seleni/Zn 1 ml/ Insulin Human Regular 15 unit/ Total Parenteral Nutrition/Amino Acids/Dextrose/ Fat Emulsion Intravenous 1,800 ml @ 75 mls/hr TPN CONT IV Last administered on 09/17/19at 22:30; Start 09/17/19 at 22:00; Stop 09/18/19 at 21:59; Status DC Potassium Chloride 80 meq/ Magnesium Sulfate 20 meq/ Multivitamins 10 ml/Chromium/ Copper/Manganese/ Seleni/Zn 1 ml/ Insulin Human Regular 15 unit/ Total Parenteral Nutrition/Amino Acids/Dextrose/ Fat Emulsion Intravenous 1,800 ml @ 75 mls/hr TPN CONT IV Last administered on 09/18/19at 21:54; Start 09/18/19 at 22:00; Stop 09/19/19 at 21:59; Status DC Potassium Chloride/Water 100 ml @ 100 mls/hr 1X ONCE IV Last administered on 09/19/19at 10:15; Start 09/19/19 at 10:00; Stop 09/19/19 at 10:59; Status DC Potassium Chloride 90 meq/ Magnesium Sulfate 20 meq/ Multivitamins 10 ml/Chromium/ Copper/Manganese/ Seleni/Zn 1 ml/ Insulin Human Regular 20 unit/ Total Parenteral Nutrition/Amino Acids/Dextrose/ Fat Emulsion Intravenous 1,800 ml @ 75 mls/hr TPN CONT IV Last administered on 09/19/19at 22:28; Start 09/19/19 at 22:00; Stop 09/20/19 at 21:59; Status DC Potassium Chloride 90 meq/ Magnesium Sulfate 20 meq/ Multivitamins 10 ml/Chromium/ Copper/Manganese/ Seleni/Zn 1 ml/ Insulin Human Regular 20 unit/ Total Parenteral Nutrition/Amino Acids/Dextrose/ Fat Emulsion Intravenous 1,800 ml @ 75 mls/hr TPN CONT IV Last administered on 09/20/19at 22:08; Start 09/20/19 at 22:00; Stop 09/21/19 at 21:59; Status DC Lorazepam (Ativan Inj) 0.25 mg PRN Q4HRS PRN IVP ANXIETY / AGITATION Last administered on 10/01/19at 02:25; Start 09/21/19 at 07:30 Potassium Chloride 90 meq/ Magnesium Sulfate 20 meq/ Multivitamins 10 ml/Chromium/ Copper/Manganese/ Seleni/Zn 1 ml/ Insulin Human Regular 20 unit/ Total Parenteral Nutrition/Amino Acids/Dextrose/ Fat Emulsion Intravenous 1,800 ml @ 75 mls/hr TPN CONT IV Last administered on 09/21/19at 23:13; Start 09/21/19 at 22:00; Stop 09/22/19 at 21:59; Status DC Furosemide (Lasix) 40 mg DAILY IVP Last administered on 09/23/19at 11:14; Start 09/21/19 at 13:30; Stop 09/25/19 at 09:12; Status DC Fluoxetine HCl (PROzac) 20 mg QHS PEG Last administered on 10/03/19at 21:53; Start 09/22/19 at 21:00 Fentanyl (Duragesic 50mcg/ Hr Patch) 1 patch Q72H TD Last administered on 09/22/19at 21:22; Start 09/22/19 at 21:00; Stop 10/01/19 at 12:00; Status DC Potassium Chloride 40 meq/ Potassium Acetate 60 meq/Magnesium Sulfate 10 meq/ Multivitamins 10 ml/Chromium/ Copper/Manganese/ Seleni/Zn 1 ml/ Insulin Human Regular 20 unit/ Total Parenteral Nutrition/Amino Acids/Dextrose/ Fat Emulsion Intravenous 1,800 ml @ 75 mls/hr TPN CONT IV Last administered on 09/23/19at 00:03; Start 09/22/19 at 22:00; Stop 09/23/19 at 21:59; Status DC Potassium Acetate 80 meq/Magnesium Sulfate 5 meq/ Multivitamins 10 ml/Chromium/ Copper/Manganese/ Seleni/Zn 1 ml/ Insulin Human Regular 20 unit/ Total Janett ral Nutrition/Amino Acids/Dextrose/ Fat Emulsion Intravenous 1,920 ml @ 80 mls/hr TPN CONT IV Last administered on 09/23/19at 21:59; Start 09/23/19 at 22:00; Stop 09/24/19 at 21:59; Status DC Potassium Acetate 60 meq/Magnesium Sulfate 5 meq/ Multivitamins 10 ml/Chromium/ Copper/Manganese/ Seleni/Zn 1 ml/ Insulin Human Regular 30 unit/ Total Parenteral Nutrition/Amino Acids/Dextrose/ Fat Emulsion Intravenous 1,920 ml @ 80 mls/hr TPN CONT IV Last administered on 09/24/19at 21:54; Start 09/24/19 at 22:00; Stop 09/25/19 at 21:59; Status DC Norepinephrine Bitartrate 8 mg/ Dextrose 258 ml @ 13.332 mls/ hr CONT PRN IV PER PROTOCOL Last administered on 09/25/19at 21:46; Start 09/25/19 at 06:30 Albumin Human 500 ml @ 125 mls/hr 1X ONCE IV Last administered on 09/25/19at 08:10; Start 09/25/19 at 08:15; Stop 09/25/19 at 12:14; Status DC Potassium Acetate 40 meq/Magnesium Sulfate 5 meq/ Multivitamins 10 ml/Chromium/ Copper/Manganese/ Seleni/Zn 1 ml/ Insulin Human Regular 30 unit/ Total Parenteral Nutrition/Amino Acids/Dextrose/ Fat Emulsion Intravenous 1,920 ml @ 80 mls/hr TPN CONT IV Last administered on 09/25/19at 22:23; Start 09/25/19 at 22:00; Stop 09/26/19 at 21:59; Status DC Meropenem 1 gm/ Sodium Chloride 100 ml @ 200 mls/hr Q8HRS IV ; Start 09/25/19 at 14:00; Status Cancel Meropenem 1 gm/ Sodium Chloride 100 ml @ 200 mls/hr Q8HRS IV Last administered on 09/25/19at 11:04; Start 09/25/19 at 10:00; Stop 09/25/19 at 13:00; Status DC Meropenem 1 gm/ Sodium Chloride 100 ml @ 200 mls/hr Q12HR IV Last administered on 10/04/19at 09:27; Start 09/25/19 at 21:00 Sodium Chloride 1,000 ml @ 1,000 mls/hr 1X ONCE IV Last administered on 09/25/19at 11:06; Start 09/25/19 at 10:45; Stop 09/25/19 at 11:44; Status DC Micafungin Sodium 100 mg/Dextrose 100 ml @ 100 mls/hr Q24H IV Last ad ministered on 10/03/19at 10:36; Start 09/25/19 at 11:00 Daptomycin 410 mg/ Sodium Chloride 50 ml @ 100 mls/hr Q24H IV Last admin istered on 09/27/19at 13:33; Start 09/25/19 at 14:00; Stop 09/28/19 at 08:30; Status DC Midazolam HCl (Versed) 2 mg STK-MED ONCE .ROUTE ; Start 09/25/19 at 14:47; Stop 09/25/19 at 14:48; Status DC Fentanyl Citrate (Fentanyl 2ml Vial) 100 mcg STK-MED ONCE .ROUTE ; Start 09/25/19 at 14:47; Stop 09/25/19 at 14:48; Status DC Flumazenil (Romazicon) 0.5 mg STK-MED ONCE IV ; Start 09/25/19 at 14:48; Stop 09/25/19 at 14:48; Status DC Naloxone HCl (Narcan) 0.4 mg STK-MED ONCE .ROUTE ; Start 09/25/19 at 14:48; Stop 09/25/19 at 14:48; Status DC Lidocaine HCl (Lidocaine 1% 20ml Vial) 20 ml STK-MED ONCE .ROUTE ; Start 09/25/19 at 14:48; Stop 09/25/19 at 14:48; Status DC Midazolam HCl (Versed) 2 mg 1X ONCE IV Last administered on 09/25/19at 15:28; Start 09/25/19 at 15:00; Stop 09/25/19 at 15:01; Status DC Fentanyl Citrate (Fentanyl 2ml Vial) 100 mcg 1X ONCE IV Last administered on 09/25/19at 15:28; Start 09/25/19 at 15:00; Stop 09/25/19 at 15:01; Status DC Lidocaine HCl (Lidocaine 1% 20ml Vial) 20 ml 1X ONCE INJ Last administered on 09/25/19at 15:30; Start 09/25/19 at 15:00; Stop 09/25/19 at 15:01; Status DC Sodium Chloride 1,000 ml @ 100 mls/hr Q10H IV Last administered on 10/04/19at 07:30; Start 09/25/19 at 20:00 Sodium Bicarbonate (Sodium Bicarb Adult 8.4% Syr) 50 meq 1X ONCE IV Last administered on 09/25/19at 21:47; Start 09/25/19 at 22:00; Stop 09/25/19 at 22:01; Status DC Potassium Acetate 40 meq/Magnesium Sulfate 5 meq/ Multivitamins 10 ml/Chromium/ Copper/Manganese/ Seleni/Zn 1 ml/ Insulin Human Regular 30 unit/ Total Parentera l Nutrition/Amino Acids/Dextrose/ Fat Emulsion Intravenous 1,920 ml @ 80 mls/hr TPN CONT IV Last administered on 09/26/19at 22:28; Start 09/26/19 at 22:00; Stop 09/27/19 at 21:59; Status DC Sodium Chloride 500 ml @ 500 mls/hr 1X ONCE IV Last administered on 09/27/19at 06:39; Start 09/27/19 at 06:45; Stop 09/27/19 at 07:44; Status DC Potassium Acetate 40 meq/Magnesium Sulfate 5 meq/ Multivitamins 10 ml/Chromium/ Copper/Manganese/ Seleni/Zn 1 ml/ Insulin Human Regular 30 unit/ Total Parenteral Nutrition/Amino Acids/Dextrose/ Fat Emulsion Intravenous 1,920 ml @ 80 mls/hr TPN CONT IV Last administered on 09/27/19at 22:03; Start 09/27/19 at 22:00; Stop 09/28/19 at 21:59; Status DC Metoprolol Tartrate (Lopressor Vial) 5 mg PRN Q6HRS PRN IVP HYPERTENSION Last administered on 10/01/19at 04:03; Start 09/28/19 at 09:00 Potassium Acetate 40 meq/Magnesium Sulfate 5 meq/ Multivitamins 10 ml/Chromium/ Copper/Manganese/ Seleni/Zn 1 ml/ Insulin Human Regular 30 unit/ Total Parenteral Nutrition/Amino Acids/Dextrose/ Fat Emulsion Intravenous 1,920 ml @ 80 mls/hr TPN CONT IV Last administered on 09/28/19at 21:26; Start 09/28/19 at 22:00; Stop 09/29/19 at 21:59; Status DC Potassium Acetate 40 meq/Magnesium Sulfate 5 meq/ Multivitamins 10 ml/Chromium/ Copper/Manganese/ Seleni/Zn 1 ml/ Insulin Human Regular 30 unit/ Total Parenteral Nutrition/Amino Acids/Dextrose/ Fat Emulsion Intravenous 1,920 ml @ 80 mls/hr TPN CONT IV Last administered on 09/29/19at 23:23; Start 09/29/19 at 22:00; Stop 09/30/19 at 21:59; Status DC Potassium Acetate 40 meq/Magnesium Sulfate 5 meq/ Multivitamins 10 ml/Chromium/ Copper/Manganese/ Seleni/Zn 1 ml/ Insulin Human Regular 30 unit/ Total Parenteral Nutrition/Amino Acids/Dextrose/ Fat Emulsion Intravenous 1,920 ml @ 80 mls/hr TPN CONT IV Last administered on 09/30/19at 21:35; Start 09/30/19 at 22:00; Stop 10/01/19 at 21:59; Status DC Furosemide (Lasix) 20 mg 1X ONCE IVP Last administered on 10/01/19at 06:26; Start 10/01/19 at 06:15; Stop 10/01/19 at 06:16; Status DC Methylprednisolone Sodium Succinate (SOLU-Medrol 125MG VIAL) 125 mg 1X ONCE IV Last administered on 10/01/19at 06:26; Start 10/01/19 at 06:15; Stop 10/01/19 at 06:16; Status DC Albuterol/ Ipratropium (Duoneb) 3 ml Q4HRS NEB Last administered on 10/03/19at 23:45; Start 10/01/19 at 08:00 Fentanyl Citrate 30 ml @ 0 mls/hr CONT PRN IV SEE PROTOCOL Last administered on 10/03/19at 19:58; Start 10/01/19 at 06:00 Propofol 100 ml @ 0 mls/hr CONT PRN IV SEE PROTOCOL Last administered on 10/03/19at 13:10; Start 10/01/19 at 06:00 Fentanyl Citrate (Fentanyl 2ml Vial) 25 mcg PRN Q1HR PRN IV SEE COMMENTS; Start 10/01/19 at 06:00 Fentanyl Citrate (Fentanyl 2ml Vial) 50 mcg PRN Q1HR PRN IV SEE COMMENTS; Start 10/01/19 at 06:00 Chlorhexidine Gluconate (Peridex) 15 ml BID MM ; Start 10/01/19 at 09:00; Stop 10/01/19 at 07:58; Status DC Potassium Acetate 40 meq/Magnesium Sulfate 5 meq/ Multivitamins 10 ml/Chromium/ Copper/Manganese/ Seleni/Zn 1 ml/ Insulin Human Regular 30 unit/ Total Parenteral Nutrition/Amino Acids/Dextrose/ Fat Emulsion Intravenous 1,920 ml @ 80 mls/hr TPN CONT IV Last administered on 10/01/19at 21:19; Start 10/01/19 at 22:00; Stop 10/02/19 at 21:59; Status DC Acetylcysteine (Mucomyst 20% Resp Treatment) 600 mg BID NEB Last administered on 10/03/19at 20:24; Start 10/01/19 at 21:00 Magnesium Sulfate 100 ml @ 25 mls/hr 1X ONCE IV Last administered on 10/01/19at 15:48; Start 10/01/19 at 15:45; Stop 10/01/19 at 19:44; Status DC Potassium Acetate 40 meq/Magnesium Sulfate 5 meq/ Multivitamins 10 ml/Chromium/ Copper/Manganese/ Seleni/Zn 1 ml/ Insulin Human Regular 30 unit/ Total Parenteral Nutrition/Amino Acids/Dextrose/ Fat Emulsion Intravenous 1,920 ml @ 80 mls/hr TPN CONT IV Last administered on 10/02/19at 21:35; Start 10/02/19 at 22:00; Stop 10/03/19 at 21:59; Status DC Potassium Chloride/Water 100 ml @ 100 mls/hr Q1H IV Last administered on 10/03/19at 08:31; Start 10/03/19 at 07:00; Stop 10/03/19 at 08:59; Status DC Potassium Acetate 40 meq/Magnesium Sulfate 5 meq/ Multivitamins 10 ml/Chromium/ Copper/Manganese/ Seleni/Zn 1 ml/ Insulin Human Regular 30 unit/ Total Parenteral Nutrition/Amino Acids/Dextrose/ Fat Emulsion Intravenous 1,920 ml @ 80 mls/hr TPN CONT IV Last administered on 10/03/19at 21:54; Start 10/03/19 at 22:00; Stop 10/04/19 at 21:59 Lidocaine HCl (Buffered Lidocaine 1%) 3 ml STK-MED ONCE .ROUTE ; Start 10/03/19 at 12:14; Stop 10/03/19 at 12:14; Status DC Lidocaine HCl (Buffered Lidocaine 1%) 3 ml 1X ONCE IJ Last administered on 10/03/19at 13:11; Start 10/03/19 at 13:00; Stop 10/03/19 at 13:01; Status DC Magnesium Sulfate 50 ml @ 25 mls/hr 1X ONCE IV ; Start 10/04/19 at 08:15; Stop 10/04/19 at 10:14 Active Scripts Active Reported Bisoprolol Fumarate 5 Mg Tablet 10 Mg PO DAILY Vitals/I & O Vital Sign - Last 24 Hours 10/03/19 10/03/19 10/03/19 10/03/19 10:00 11:00 12:00 12:00 Temp 99.0 99.0 Pulse 113 105 115 Resp 20 22 31 B/P (MAP) 126/70 (88) 124/67 (86) 140/74 (96) Pulse Ox 100 100 98 O2 Delivery Ventilator Tracheal Collar Trach Collar Tracheal Collar 10/03/19 10/03/19 10/03/19 10/03/19 12:00 13:10 13:15 13:20 Pulse 120 121 123 Resp 24 22 22 B/P (MAP) 154/80 (104) 160/85 (110) 161/93 (115) Pulse Ox 97 98 98 O2 Delivery Tracheal Collar Tracheal Collar Tracheal Collar 10/03/19 10/03/19 10/03/19 10/03/19 13:25 13:30 13:35 13:40 Pulse 120 122 119 121 Resp 22 22 22 22 B/P (MAP) 159/91 (113) 147/93 (111) 142/83 (102) 150/86 (107) Pulse Ox 98 98 98 97 O2 Delivery Tracheal Collar Tracheal Collar Tracheal Collar Tracheal Collar 10/03/19 10/03/19 10/03/19 10/03/19 14:00 15:00 15:50 16:00 Temp 98.8 98.8 Pulse 115 120 115 Resp 38 36 27 B/P (MAP) 143/78 (99) 148/80 (102) 144/77 (99) Pulse Ox 97 97 98 O2 Delivery Tracheal Collar Tracheal Collar Trach Collar Tracheal Collar 10/03/19 10/03/19 10/03/19 10/03/19 16:00 16:24 17:00 18:00 Pulse 116 110 Resp 27 22 B/P (MAP) 142/76 (98) 138/72 (94) Pulse Ox 96 98 98 O2 Delivery Tracheal Collar Tracheal Collar Tracheal Collar O2 Flow Rate 9.0 10/03/19 10/03/19 10/03/19 10/03/19 19:00 20:00 20:00 20:00 Temp 98.2 98.2 Pulse 106 104 Resp 22 28 B/P (MAP) 134/71 (92) 146/76 (99) Pulse Ox 99 99 O2 Delivery Tracheal Collar Tracheal Collar Trach Collar 10/03/19 10/03/19 10/03/19 10/03/19 20:28 20:29 21:00 22:00 Pulse 104 110 Resp 24 27 B/P (MAP) 128/72 (90) 134/76 (95) Pulse Ox 99 99 98 98 O2 Delivery Tracheal Collar Tracheal Collar Tracheal Collar Tracheal Collar O2 Flow Rate 9.0 9.0 10/03/19 10/03/19 10/04/19 10/04/19 23:00 23:45 00:00 00:00 Temp 98.9 98.9 Pulse 104 96 Resp 21 20 B/P (MAP) 118/92 (101) 124/80 (95) Pulse Ox 98 99 98 O2 Delivery Tracheal Collar Ventilator Ventilator 6/10/04/19 10/04/19 10/04/19 00:00 01:00 02:00 03:00 Pulse 90 102 100 Resp 20 25 20 B/P (MAP) 116/88 (97) 168/88 (114) 138/72 (94) Pulse Ox 100 99 100 O2 Delivery Mechanical Ventilator Ventilator Ventilator Ventilator 10/04/19 10/04/19 10/04/19 10/04/19 03:45 04:00 04:00 04:00 Temp 99.1 99.1 Pulse 100 Resp 20 B/P (MAP) 136/72 (93) Pulse Ox 99 100 O2 Delivery Ventilator Mechanical Ventilator Ventilator 10/04/19 10/04/19 10/04/19 10/04/19 05:00 06:00 07:00 07:40 Pulse 106 116 106 Resp 20 20 20 B/P (MAP) 132/72 (92) 140/74 (96) 136/68 (90) Pulse Ox 98 99 99 99 O2 Delivery Ventilator Ventilator Ventilator Ventilator 10/04/19 10/04/19 10/04/19 10/04/19 07:44 07:44 08:00 08:00 Temp 97.7 97.7 Pulse 108 Resp 20 B/P (MAP) 140/76 (97) Pulse Ox 99 O2 Delivery Mechanical Ventilator Ventilator 10/04/19 08:30 Pulse Ox 95 O2 Delivery Tracheal Collar Intake and Output 10/03/19 10/03/19 10/04/19 15:00 23:00 07:00 Intake Total 400 ml 2692 ml 1566 ml Output Total 920 ml 1085 ml 1320 ml Balance -520 ml 1607 ml 246 ml Hemodynamically unstable?: No Is patient in severe pain?: No Is NPO status required?: No NIELS MCGILL MD Oct 04, 2019 09:40
[2019-10-04] MEDS: TPN PER PHARMACY MC PRN (10:11)
--- NOTE | 2019-10-04 10:11 | NUR ---
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, 8 inches Weight: 82.5 kg Current diet: NPO LABS: Sodium: 141 Potassium: 3.6 Chloride: 108 Calcium: 8.9 Corrected Calcium: 11.22 Magnesium: 1.5 CO2: 23 SCr: 0.7 Glucose: 113, 129, 122 Albumin: 1.1 AST: 62 ALT: 72 TPN FORMULA: TPN TYPE: Central Continuous AMINO ACIDS: 75 gm DEXTROSE: 250 gm LIPIDS: 20 gm POTASSIUM ACETATE: 40 mEq MAGNESIUM: 10 mEq INSULIN: 20 units MULTIPLE VITAMIN: 10 ml TRACE ELEMENTS: 1 ml TPN PLAN: -Off propofol infusion, serum TG 251 today. -Serum potassium WNL, no change in TPN. -Serum magnesium low. Getting mag sulfate 2g x 1 per primary. Increase mag sulfate to 10 mEq/day in TPN. -Blood glucose values below goal range of 140-180; reduce regular insulin to 20 units/day. -CMP tomorrow per ID, magnesium per protocol. R: Continue TPN @ 80 ml/hr and above formula. Will monitor electrolytes, glucose, and tolerance to TPN. SHARON CHRISTIANSON [facility], 10/04/19 1011
--- NOTE | 2019-10-04 10:31 | PDOC ---
Subjective: Subjective: Indicates feeling "so-so." Objective: Objective: D/w nurse - less drainage. Vital Signs: Vital Signs Date Time Temp Pulse Resp B/P (MAP) Pulse Ox O2 Delivery O2 Flow Rate FiO2 10/04/19 10:00 124 24 124/60 (81) 99 Tracheal Collar 9.0 10/04/19 08:00 97.7 97.7 Labs: Laboratory Tests Test 10/03/19 11:47 10/03/19 17:24 10/04/19 01:26 10/04/19 06:20 Glucose (Fingerstick) 121 mg/dL (70-99) 105 mg/dL (70-99) 113 mg/dL (70-99) 122 mg/dL (70-99) Imaging: Thoracentesis 10/02 CT 10/02 IMPRESSION: 1. Sequela of pancreatitis with extensive pseudocyst/fluid collections throughout the abdomen and pelvis including a large peripancreatic fluid collection and bilateral retroperitoneal collections involving the psoas mus cles. Fluid collections are unchanged to minimally decreased from CT 09/24/2019. There are 3 new pigtail drainage catheters in place. IV or oral contrast may be useful to better evaluate, if possible. 2. Slightly increased moderate to large partially loculated left pleural effusion with atelectasis or consolidation of the left lower lobe. Slightly increased small right pleural effusion and mild right pulmonary opacities. 3. Mild right hydronephrosis. 4. Cholelithiasis. 5. New anasarca. PE: GEN: was asleep LUNGS: trach collar HEART: tachycardic ABD: minimal dark brown output in drains, dressing over previous drain site to right dry NEURO/PSYCH: awakens during exam A/P: Complicated pancreatitis -- Continue support. Justicifation of Admission Dx: Justifications for Admission: Justification of Admission Dx: Yes CYNDEE FALCON Oct 04, 2019 10:31
[2019-10-04] MEDS: MICAFUNGIN 100 MG in IV DEXTROSE 5% 100ML 100 ML IV SCH (10:43)
--- NOTE | 2019-10-04 10:55 | PDOC ---
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 [employer]UE 10/04/19 1055: SURGICAL PROGRESS NOTE Subjective up to chair minimal drain output Vital Signs Vital Signs Date Time Temp Pulse Resp B/P (MAP) Pulse Ox O2 Delivery O2 Flow Rate FiO2 10/04/19 10:00 124 24 124/60 (81) 99 Tracheal Collar 9.0 10/04/19 08:00 97.7 97.7 I&O Intake and Output 10/04/19 07:00 Intake Total 4658 ml Output Total 3400 ml Balance 1258 ml Intake Oral 0 ml IV Total 4658 ml Output Urine Total 1885 ml Gastric Drainage Total 150 ml Emesis 300 ml Chest Tube Drainage Total 890 ml Drainage Total 175 ml General: Oriented X3, Cooperative HEENT: Other (trach) Abdomen: Soft, Other (drains in place) Labs Laboratory Tests Test 10/02/19 12:11 10/02/19 17:52 10/03/19 00:23 10/03/19 05:45 Glucose (Fingerstick) 159 mg/dL (70-99) 129 mg/dL (70-99) 118 mg/dL (70-99) White Blood Count 8.1 x10^3/uL (4.0-11.0) Red Blood Count 3.28 x10^6/uL (3.50-5.40) Hemoglobin 9.3 g/dL (12.0-15.5) Hematocrit 27.8 % (36.0-47.0) Mean Corpuscular Volume 85 fL (79-100) Mean Corpuscular Hemoglobin 28 pg (25-35) Mean Corpuscular Hemoglobin Concent 34 g/dL (31-37) Red Cell Distribution Width 18.6 % (11.5-14.5) Platelet Count 434 x10^3/uL (140-400) Neutrophils (%) (Auto) 80 % (31-73) Lymphocytes (%) (Auto) 15 % (24-48) Monocytes (%) (Auto) 5 % (0-9) Eosinophils (%) (Auto) 1 % (0-3) Basophils (%) (Auto) 0 % (0-3) Neutrophils # (Auto) 6.4 x10^3/uL (1.8-7.7) Lymphocytes # (Auto) 1.2 x10^3/uL (1.0-4.8) Monocytes # (Auto) 0.4 x10^3/uL (0.0-1.1) Eosinophils # (Auto) 0.1 x10^3/uL (0.0-0.7) Basophils # (Auto) 0.0 x10^3/uL (0.0-0.2) Sodium Level 143 mmol/L (136-145) Potassium Level 3.3 mmol/L (3.5-5.1) Chloride Level 111 mmol/L (98-107) Carbon Dioxide Level 23 mmol/L (21-32) Anion Gap 9 (6-14) Blood Urea Nitrogen 34 mg/dL (7-20) Creatinine 0.7 mg/dL (0.6-1.0) Estimated GFR (Cockcroft-Gault) 88.9 BUN/Creatinine Ratio 49 (-20) Glucose Level 125 mg/dL (70-99) Calcium Level 8.8 mg/dL (8.5-10.1) Magnesium Level 1.8 mg/dL (1.8-2.4) Total Bilirubin 0.5 mg/dL (0.2-1.0) Aspartate Amino Transf (AST/SGOT) 62 U/L (15-37) Alanine Aminotransferase (ALT/SGPT) 72 U/L (14-59) Alkaline Phosphatase 132 U/L (46-116) Total Protein 4.5 g/dL (6.4-8.2) Albumin 1.1 g/dL (3.4-5.0) Albumin/Globulin Ratio 0.3 (1.0-1.7) Test 10/03/19 05:54 10/03/19 08:10 10/03/19 11:47 10/03/19 17:24 Glucose (Fingerstick) 115 mg/dL (70-99) 121 mg/dL (70-99) 105 mg/dL (70-99) O2 Saturation 97 % (92-99) Arterial Blood pH 7.46 (7.35-7.45) Arterial Blood pCO2 at Patient Temp 31 mmHg (35-46) Arterial Blood pO2 at Patient Temp 117 mmHg (75-108) Arterial Blood HCO3 22 mmol/L (21-28) Arterial Blood Base Excess -2 mmol/L (-3-3) FiO2 35 Test 10/04/19 01:26 10/04/19 06:20 10/04/19 08:00 Glucose (Fingerstick) 113 mg/dL (70-99) 122 mg/dL (70-99) White Blood Count 8.4 x10^3/uL (4.0-11.0) Red Blood Count 3.38 x10^6/uL (3.50-5.40) Hemoglobin 9.7 g/dL (12.0-15.5) Hematocrit 28.9 % (36.0-47.0) Mean Corpuscular Volume 86 fL (79-100) Mean Corpuscular Hemoglobin 29 pg (25-35) Mean Corpuscular Hemoglobin Concent 34 g/dL (31-37) Red Cell Distribution Width 18.6 % (11.5-14.5) Platelet Count 432 x10^3/uL (140-400) Neutrophils (%) (Auto) 79 % (31-73) Lymphocytes (%) (Auto) 16 % (24-48) Monocytes (%) (Auto) 4 % (0-9) Eosinophils (%) (Auto) 1 % (0-3) Basophils (%) (Auto) 0 % (0-3) Neutrophils # (Auto) 6.6 x10^3/uL (1.8-7.7) Lymphocytes # (Auto) 1.3 x10^3/uL (1.0-4.8) Monocytes # (Auto) 0.3 x10^3/uL (0.0-1.1) Eosinophils # (Auto) 0.1 x10^3/uL (0.0-0.7) Basophils # (Auto) 0.0 x10^3/uL (0.0-0.2) Sodium Level 141 mmol/L (136-145) Potassium Level 3.6 mmol/L (3.5-5.1) Chloride Level 108 mmol/L (98-107) Carbon Dioxide Level 23 mmol/L (21-32) Anion Gap 10 (6-14) Blood Urea Nitrogen 28 mg/dL (7-20) Creatinine 0.7 mg/dL (0.6-1.0) Estimated GFR (Cockcroft-Gault) 88.9 Glucose Level 129 mg/dL (70-99) Calcium Level 8.9 mg/dL (8.5-10.1) Magnesium Level 1.5 mg/dL (1.8-2.4) Triglycerides Level 251 mg/dL (0-150) O2 Saturation 98 % (92-99) Arterial Blood pH 7.39 (7.35-7.45) Arterial Blood pCO2 at Patient Temp 34 mmHg (35-46) Arterial Blood pO2 at Patient Temp 121 mmHg (75-108) Arterial Blood HCO3 20 mmol/L (21-28) Arterial Blood Base Excess -4 mmol/L (-3-3) FiO2 35% Laboratory Tests Test 10/03/19 11:47 10/03/19 17:24 10/04/19 01:26 10/04/19 06:20 Glucose (Fingerstick) 121 mg/dL (70-99) 105 mg/dL (70-99) 113 mg/dL (70-99) 122 mg/dL (70-99) White Blood Count 8.4 x10^3/uL (4.0-11.0) Red Blood Count 3.38 x10^6/uL (3.50-5.40) Hemoglobin 9.7 g/dL (12.0-15.5) Hematocrit 28.9 % (36.0-47.0) Mean Corpuscular Volume 86 fL (79-100) Mean Corpuscular Hemoglobin 29 pg (25-35) Mean Corpuscular Hemoglobin Concent 34 g/dL (31-37) Red Cell Distribution Width 18.6 % (11.5-14.5) Platelet Count 432 x10^3/uL (140-400) Neutrophils (%) (Auto) 79 % (31-73) Lymphocytes (%) (Auto) 16 % (24-48) Monocytes (%) (Auto) 4 % (0-9) Eosinophils (%) (Auto) 1 % (0-3) Basophils (%) (Auto) 0 % (0-3) Neutrophils # (Auto) 6.6 x10^3/uL (1.8-7.7) Lymphocytes # (Auto) 1.3 x10^3/uL (1.0-4.8) Monocytes # (Auto) 0.3 x10^3/uL (0.0-1.1) Eosinophils # (Auto) 0.1 x10^3/uL (0.0-0.7) Basophils # (Auto) 0.0 x10^3/uL (0.0-0.2) Sodium Level 141 mmol/L (136-145) Potassium Level 3.6 mmol/L (3.5-5.1) Chloride Level 108 mmol/L (98-107) Carbon Dioxide Level 23 mmol/L (21-32) Anion Gap 10 (6-14) Blood Urea Nitrogen 28 mg/dL (7-20) Creatinine 0.7 mg/dL (0.6-1.0) Estimated GFR (Cockcroft-Gault) 88.9 Glucose Level 129 mg/dL (70-99) Calcium Level 8.9 mg/dL (8.5-10.1) Magnesium Level 1.5 mg/dL (1.8-2.4) Triglycerides Level 251 mg/dL (0-150) Test 10/04/19 08:00 O2 Saturation 98 % (92-99) Arterial Blood pH 7.39 (7.35-7.45) Arterial Blood pCO2 at Patient Temp 34 mmHg (35-46) Arterial Blood pO2 at Patient Temp 121 mmHg (75-108) Arterial Blood HCO3 20 mmol/L (21-28) Arterial Blood Base Excess -4 mmol/L (-3-3) FiO2 35% Problem List Problems Medical Problems: (1) Acute pancreatitis Status: Acute (2) Cholelithiasis Status: Acute Assessment/Plan supportive care Justicifation of Admission Dx: Justifications for Admission: Justification of Admission Dx: Yes MARV WYNNE MD 10/04/19 1328: SURGICAL PROGRESS NOTE Assessment/Plan up to chair responds to voice no new recs 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 APRN Oct 04, 2019 10:55 MARV WYNNE MD Oct 04, 2019 13:28
--- NOTE | 2019-10-04 11:29 | NUR ---
SW following. Discussed with RN, pt on a vent. Not stable for discharge. SW will continue to follow.
--- NOTE | 2019-10-04 11:40 | PDOC ---
PULMONARY PROGRESS NOTES Subjective off vent / on TS , no distress Patient intubated on 07/10 , s/p trach 07/24, transferred back to ICU 09/22 for syncope with collapse developed anemia, blood drainage from RLQ abdomen drain site, and surrounding firmness / developed septic shock 09/24 from abdomen source, required levo 09/24 s/p 3 new drains 09/24 with brown color drainage Vitals Vital Signs Date Time Temp Pulse Resp B/P (MAP) Pulse Ox O2 Delivery O2 Flow Rate FiO2 10/04/19 11:18 25 99 Tracheal Collar 9.0 10/04/19 11:00 118 130/67 (88) 10/04/19 08:00 97.7 97.7 Comments awake,no soa General: Alert HEENT: Other (nc at perrl nose clear neck trach site ok no lab no thyromegaly) Lungs: Other (diminshed in bases, Rhonci in LLL) Cardiovascular: S1, S2 Abdomen: Soft, Non-tender, Other (bleeding from Sx. site RLQ and firmness) Extremities: Other (+1 BLE edema) Skin: Warm, Dry Labs Laboratory Tests Test 10/02/19 12:11 10/02/19 17:52 10/03/19 00:23 10/03/19 05:45 Glucose (Fingerstick) 159 mg/dL (70-99) 129 mg/dL (70-99) 118 mg/dL (70-99) White Blood Count 8.1 x10^3/uL (4.0-11.0) Red Blood Count 3.28 x10^6/uL (3.50-5.40) Hemoglobin 9.3 g/dL (12.0-15.5) Hematocrit 27.8 % (36.0-47.0) Mean Corpuscular Volume 85 fL (79-100) Mean Corpuscular Hemoglobin 28 pg (25-35) Mean Corpuscular Hemoglobin Concent 34 g/dL (31-37) Red Cell Distribution Width 18.6 % (11.5-14.5) Platelet Count 434 x10^3/uL (140-400) Neutrophils (%) (Auto) 80 % (31-73) Lymphocytes (%) (Auto) 15 % (24-48) Monocytes (%) (Auto) 5 % (0-9) Eosinophils (%) (Auto) 1 % (0-3) Basophils (%) (Auto) 0 % (0-3) Neutrophils # (Auto) 6.4 x10^3/uL (1.8-7.7) Lymphocytes # (Auto) 1.2 x10^3/uL (1.0-4.8) Monocytes # (Auto) 0.4 x10^3/uL (0.0-1.1) Eosinophils # (Auto) 0.1 x10^3/uL (0.0-0.7) Basophils # (Auto) 0.0 x10^3/uL (0.0-0.2) Sodium Level 143 mmol/L (136-145) Potassium Level 3.3 mmol/L (3.5-5.1) Chloride Level 111 mmol/L (98-107) Carbon Dioxide Level 23 mmol/L (21-32) Anion Gap 9 (6-14) Blood Urea Nitrogen 34 mg/dL (7-20) Creatinine 0.7 mg/dL (0.6-1.0) Estimated GFR (Cockcroft-Gault) 88.9 BUN/Creatinine Ratio 49 (6-20) Glucose Level 125 mg/dL (70-99) Calcium Level 8.8 mg/dL (8.5-10.1) Magnesium Level 1.8 mg/dL (1.8-2.4) Total Bilirubin 0.5 mg/dL (0.2-1.0) Aspartate Amino Transf (AST/SGOT) 62 U/L (15-37) Alanine Aminotransferase (ALT/SGPT) 72 U/L (14-59) Alkaline Phosphatase 132 U/L (46-116) Total Protein 4.5 g/dL (6.4-8.2) Albumin 1.1 g/dL (3.4-5.0) Albumin/Globulin Ratio 0.3 (1.0-1.7) Test 10/03/19 05:54 10/03/19 08:10 10/03/19 11:47 10/03/19 17:24 Glucose (Fingerstick) 115 mg/dL (70-99) 121 mg/dL (70-99) 105 mg/dL (70-99) O2 Saturation 97 % (92-99) Arterial Blood pH 7.46 (7.35-7.45) Arterial Blood pCO2 at Patient Temp 31 mmHg (35-46) Arterial Blood pO2 at Patient Temp 117 mmHg (75-108) Arterial Blood HCO3 22 mmol/L (21-28) Arterial Blood Base Excess -2 mmol/L (-3-3) FiO2 35 Test 10/04/19 01:26 10/04/19 06:20 10/04/19 08:00 Glucose (Fingerstick) 113 mg/dL (70-99) 122 mg/dL (70-99) White Blood Count 8.4 x10^3/uL (4.0-11.0) Red Blood Count 3.38 x10^6/uL (3.50-5.40) Hemoglobin 9.7 g/dL (12.0-15.5) Hematocrit 28.9 % (36.0-47.0) Mean Corpuscular Volume 86 fL (79-100) Mean Corpuscular Hemoglobin 29 pg (25-35) Mean Corpuscular Hemoglobin Concent 34 g/dL (31-37) Red Cell Distribution Width 18.6 % (11.5-14.5) Platelet Count 432 x10^3/uL (140-400) Neutrophils (%) (Auto) 79 % (31-73) Lymphocytes (%) (Auto) 16 % (24-48) Monocytes (%) (Auto) 4 % (0-9) Eosinophils (%) (Auto) 1 % (0-3) Basophils (%) (Auto) 0 % (0-3) Neutrophils # (Auto) 6.6 x10^3/uL (1.8-7.7) Lymphocytes # (Auto) 1.3 x10^3/uL (1.0-4.8) Monocytes # (Auto) 0.3 x10^3/uL (0.0-1.1) Eosinophils # (Auto) 0.1 x10^3/uL (0.0-0.7) Basophils # (Auto) 0.0 x10^3/uL (0.0-0.2) Sodium Level 141 mmol/L (136-145) Potassium Level 3.6 mmol/L (3.5-5.1) Chloride Level 108 mmol/L (98-107) Carbon Dioxide Level 23 mmol/L (21-32) Anion Gap 10 (6-14) Blood Urea Nitrogen 28 mg/dL (7-20) Creatinine 0.7 mg/dL (0.6-1.0) Estimated GFR (Cockcroft-Gault) 88.9 Glucose Level 129 mg/dL (70-99) Calcium Level 8.9 mg/dL (8.5-10.1) Magnesium Level 1.5 mg/dL (1.8-2.4) Triglycerides Level 251 mg/dL (0-150) O2 Saturation 98 % (92-99) Arterial Blood pH 7.39 (7.35-7.45) Arterial Blood pCO2 at Patient Temp 34 mmHg (35-46) Arterial Blood pO2 at Patient Temp 121 mmHg (75-108) Arterial Blood HCO3 20 mmol/L (21-28) Arterial Blood Base Excess -4 mmol/L (-3-3) FiO2 35% Laboratory Tests Test 10/03/19 11:47 10/03/19 17:24 10/04/19 01:26 10/04/19 06:20 Glucose (Fingerstick) 121 mg/dL (70-99) 105 mg/dL (70-99) 113 mg/dL (70-99) 122 mg/dL (70-99) White Blood Count 8.4 x10^3/uL (4.0-11.0) Red Blood Count 3.38 x10^6/uL (3.50-5.40) Hemoglobin 9.7 g/dL (12.0-15.5) Hematocrit 28.9 % (36.0-47.0) Mean Corpuscular Volume 86 fL (79-100) Mean Corpuscular Hemoglobin 29 pg (25-35) Mean Corpuscular Hemoglobin Concent 34 g/dL (31-37) Red Cell Distribution Width 18.6 % (11.5-14.5) Platelet Count 432 x10^3/uL (140-400) Neutrophils (%) (Auto) 79 % (31-73) Lymphocytes (%) (Auto) 16 % (24-48) Monocytes (%) (Auto) 4 % (0-9) Eosinophils (%) (Auto) 1 % (0-3) Basophils (%) (Auto) 0 % (0-3) Neutrophils # (Auto) 6.6 x10^3/uL (1.8-7.7) Lymphocytes # (Auto) 1.3 x10^3/uL (1.0-4.8) Monocytes # (Auto) 0.3 x10^3/uL (0.0-1.1) Eosinophils # (Auto) 0.1 x10^3/uL (0.0-0.7) Basophils # (Auto) 0.0 x10^3/uL (0.0-0.2) Sodium Level 141 mmol/L (136-145) Potassium Level 3.6 mmol/L (3.5-5.1) Chloride Level 108 mmol/L (98-107) Carbon Dioxide Level 23 mmol/L (21-32) Anion Gap 10 (6-14) Blood Urea Nitrogen 28 mg/dL (7-20) Creatinine 0.7 mg/dL (0.6-1.0) Estimated GFR (Cockcroft-Gault) 88.9 Glucose Level 129 mg/dL (70-99) Calcium Level 8.9 mg/dL (8.5-10.1) Magnesium Level 1.5 mg/dL (1.8-2.4) Triglycerides Level 251 mg/dL (0-150) Test 10/04/19 08:00 O2 Saturation 98 % (92-99) Arterial Blood pH 7.39 (7.35-7.45) Arterial Blood pCO2 at Patient Temp 34 mmHg (35-46) Arterial Blood pO2 at Patient Temp 121 mmHg (75-108) Arterial Blood HCO3 20 mmol/L (21-28) Arterial Blood Base Excess -4 mmol/L (-3-3) FiO2 35% Medications Active Scripts Medications Dose Route/Sig Max Daily Dose Days Date Category Bisoprolol Fumarate 5 Mg Tablet 10 Mg PO DAILY 07/04/19 Reported Comments CXR 10/02/2019 trach infilt effusion atelectasis on l side improved r effusion/atelectasis ct abdomen /pelvis 09/23 1. Removal of the percutaneous pigtail drainage catheters since the prior exam. Sequela of pancreatitis with extensive pseudocysts again demonstrated, the right-sided collections are slightly larger since the prior exam, the left-sided collections are stable. See above. 2. Moderate to large left pleural effusion with atelectasis and collapse of most of the left lower lobe, stable. Small right pleural effusion is stable. 3. Gallstone. ct chest 10/02 reviewed Impression . IMPRESSION: 1. Acute hypoxemic respiratory failure secondary to ARDS status post trach, developed anemia 09/24, blood drainage from RLQ abdomen drain site, and surrounding firmness / developed septic shock 09/24 from abdomen source, required levo 09/24 s/p 3 new drains 09/24 with brown color drainage, back on vent 09/30, off vent since 10/02. on TS 2. Gallstone pancreatitis, now with ongoing bleeding from prior drain. Anemic. s/p Tx multiple units over several days 3. septic shock/sepsis, recurrent 09/24, source abdomen. , off levo now, 4. Acute kidney injury-, Off HD--renal function decling. suspect JUANA on CKD due to hypotension , improved now 5. Acute gallstone pancreatitis. 6. Hypoalbuminemia. 7. Moderate persistent effusions, s/p left thora 08/29, reaccumulation of left effusion. O2 requirement not changed. 8. Fever- ,hypotension. suspect recurrent sepsis/ likely pancreatic source. Per ID, per surgery-- 9. Chronic anemia-- ongoing / s/p PRBC 10. Covid 19 testing negative 11. Moderate to large ascites-S/P paracentisis 12.S/P paracentisis with 4 liters removed on 08/03/19 13. S/P IR drain placement on 08/26/2019, removal, re inserted 09/24 14. Depression/Anxiety 15. Increase left effusion, ? loculated/ s/p left chest tube. 800 cc so far Plan . 1. TS 24 hr . follow results of thoracentesis, titrate fio2 to keep sat 94%, cont vent support. 2. Follow all cultures/ PSA from pelvic drains. Abx per ID 3. Follow surgery recs-- Acute pancreatitis with persistent necrosis ---- 08/14 status post KAYLIN drain placement + C paropsilosis; 08/23 + yeast & high amylase; s/p additional drains on 08/25, removal of drains and now increase pseudocyst and increase fluid collection. likely infected fluid/ sepsis. on BS abx.follow surgery rec, planning surgical intervention next few weeks 4. Follow ID recs for ABX---- 5. Follow nephrology recs ----- 6. Continue TPN 7. monitor HGB, 4 units since 09/23--monitor HGB transfuse if less than 8.5 8 s/p thoracentesis, 5/12, 3 litres removed, 10/02. 800 cc so far. Monitor chest tube 9. Pt remains critically ill from severe necrotic pancreatis. Even with surgery prognosis grim. Surgery informed family. DVT/GI PPX: protonix--- holding lovenox 2/2 anemia PT/OT D/W RN, rt and dr beckford, d/w ID critically ill cc time 30 min no overlap VINAYAK LANDRUM MD Oct 04, 2019 11:40
--- NOTE | 2019-10-04 14:02 | RAD ---
CT-guided placement of a left thoracostomy tube 10/04/2019 Indication: ct guided left thoracentesis, if thick fluid, chest tube Discussion: The risks and benefits of the procedure, including but not limited to, bleeding and infection were discussed patient. Informed consent was obtained. The patient was brought to the CT scanner and placed in the supine position. A timeout procedure was performed. CT imaging demonstrates a moderate left pleural effusion. The overlying soft tissues were prepped and draped using maximum sterile barrier technique. 1% lidocaine without epinephrine was administered for local anesthesia. Under intermittent CT guidance, a 5 Czech Yueh needle was advanced into the left chest. Somewhat thick pleural fluid was aspirated. A guidewire was advanced into the chest, over which following dilatation a 10 Czech pigtail drain was placed. This connected to Pleur-evac device at -20 cm water. Sterile dressings were applied. Impression: Left-sided chest tube placement, CT guided PQRS Compliance Statement: One or more of the following individualized dose reduction techniques were utilized for this examination: 1. Automated exposure control 2. Adjustment of the mA and/or kV according to patient size 3. Use of iterative reconstruction technique
[2019-10-04] MEDS: PROCHLORPERAZINE 10 MG/2 ML VIAL. IV PRN (15:49)
[2019-10-04] MEDS ORDERED: [UNRECOGNIZED DRUG - OTHER] IV SCH ×8 (22:00)
[2019-10-04] MEDS ORDERED: DEXTROSE 70% IV SCH ×8 (22:00)
[2019-10-04] MEDS ORDERED: AMINO ACID IV SCH ×8 (22:00)
[2019-10-04] MEDS ORDERED: TOTAL PARENTERAL NUTRITION IV SCH ×8 (22:00)
[2019-10-04] MEDS: PROPOFOL 100 ML IV PRN (22:26)
[2019-10-05] VITALS (24 sets, daily range): BP systolic 106–178; BP diastolic 47–70
[2019-10-05] MEDS: IPRATRPIUM/ALBUTEROL 0.5/2.5MG 3 ML NEBU. NEB SCH ×6 (04:04→23:35)
[2019-10-05] MEDS: PROPOFOL 100 ML IV PRN ×2 (04:31→22:22)
[2019-10-05] MEDS: INSULIN LISPRO 300 UNITS/3 ML VIAL. SQ SCH ×4 (06:00→18:36)
[2019-10-05 06:39] LABS: BASO % 0 % (0-3); EOS # 0.1 x10^3/uL (0.0-0.7); EOS % 1 % (0-3); HEMATOCRIT 26.7 % (36.0-47.0); HEMOGLOBIN 8.9 g/dL (12.0-15.5); LYMPH # 1.7 x10^3/uL (1.0-4.8); LYMPH % 22 % (24-48); MEAN CORPUSCULAR HEMOGLOBIN 29 pg (25-35); MEAN CORPUSCULAR HGB CONC 34 g/dL (31-37); MEAN CORPUSCULAR VOLUME 85 fL (79-100); MONO # 0.3 x10^3/uL (0.0-1.1); MONO % 4 % (0-9); NEUT # 5.8 x10^3/uL (1.8-7.7); NEUT % 73 % (31-73); PLATELET COUNT 424 x10^3/uL (140-400); RED BLOOD COUNT 3.14 x10^6/uL (3.50-5.40); RED CELL DISTRIBUTION WIDTH 18.3 % (11.5-14.5)
[2019-10-05 06:54] LABS: ALBUMIN/GLOBULIN RATIO 0.3 (1.0-1.7); CREATININE 0.7 mg/dL (0.6-1.0); GFR 88.9; MAGNESIUM 1.7 mg/dL (1.8-2.4); POTASSIUM 3.4 mmol/L (3.5-5.1); TOTAL BILIRUBIN 0.6 mg/dL (0.2-1.0); TOTAL PROTEIN 4.5 g/dL (6.4-8.2)
--- NOTE | 2019-10-05 07:19 | PDOC ---
Infectious Disease Note Subjective Subjective Patient better. A little nausea at times. pain ok Continues to have blood stained drainage from drains no fevers last 24 hours ROS ROS difficult to obtain but o/w seems neg Vital Sign Vital Signs Vital Signs Date Time Temp Pulse Resp B/P (MAP) Pulse Ox O2 Delivery O2 Flow Rate FiO2 10/05/19 06:00 108 20 132/66 (88) 98 Ventilator 10/05/19 04:00 98.4 98.4 10/04/19 17:00 9.0 Physical Exam PHYSICAL EXAM GENERAL: More Alert and looks comfortable HEENT: NGT in place. Oral mucosa dry NECK: Tracheostomy LUNGS: Diminished aeration bases, no accessory muscle use - CT on left with clear fluid HEART: S1, S2, tachy, regular ABDOMEN: Mild distention, bowel sounds present, soft, grimaces to palpation Right lateral side drainage bag, 3 drains with bloodstained drainage. Left side with drainage from previous drain site - dressed - clean and dry : Lind ( 09/24) EXTREMITIES: Trace edema .no cyanosis SKIN: no signs of gen rash RADIATION OFFICER: Lethargic very weak LUE-PICC (09/15) without signs of complications - art line without complications Labs Lab Laboratory Tests Test 10/04/19 08:00 10/04/19 12:19 10/05/19 00:23 10/05/19 06:00 O2 Saturation 98 % (92-99) Arterial Blood pH 7.39 (7.35-7.45) Arterial Blood pCO2 at Patient Temp 34 mmHg (35-46) Arterial Blood pO2 at Patient Temp 121 mmHg (75-108) Arterial Blood HCO3 20 mmol/L (21-28) Arterial Blood Base Excess -4 mmol/L (-3-3) FiO2 35% Glucose (Fingerstick) 145 mg/dL (70-99) 95 mg/dL (70-99) White Blood Count 8.0 x10^3/uL (4.0-11.0) Red Blood Count 3.14 x10^6/uL (3.50-5.40) Hemoglobin 8.9 g/dL (12.0-15.5) Hematocrit 26.7 % (36.0-47.0) Mean Corpuscular Volume 85 fL (79-100) Mean Corpuscular Hemoglobin 29 pg (25-35) Mean Corpuscular Hemoglobin Concent 34 g/dL (31-37) Red Cell Distribution Width 18.3 % (11.5-14.5) Platelet Count 424 x10^3/uL (140-400) Neutrophils (%) (Auto) 73 % (31-73) Lymphocytes (%) (Auto) 22 % (24-48) Monocytes (%) (Auto) 4 % (0-9) Eosinophils (%) (Auto) 1 % (0-3) Basophils (%) (Auto) 0 % (0-3) Neutrophils # (Auto) 5.8 x10^3/uL (1.8-7.7) Lymphocytes # (Auto) 1.7 x10^3/uL (1.0-4.8) Monocytes # (Auto) 0.3 x10^3/uL (0.0-1.1) Eosinophils # (Auto) 0.1 x10^3/uL (0.0-0.7) Basophils # (Auto) 0.0 x10^3/uL (0.0-0.2) Sodium Level 140 mmol/L (136-145) Potassium Level 3.4 mmol/L (3.5-5.1) Chloride Level 106 mmol/L (98-107) Carbon Dioxide Level 25 mmol/L (21-32) Anion Gap 9 (6-14) Blood Urea Nitrogen 23 mg/dL (7-20) Creatinine 0.7 mg/dL (0.6-1.0) Estimated GFR (Cockcroft-Gault) 88.9 BUN/Creatinine Ratio 33 (6-20) Glucose Level 121 mg/dL (70-99) Calcium Level 9.0 mg/dL (8.5-10.1) Magnesium Level 1.7 mg/dL (1.8-2.4) Total Bilirubin 0.6 mg/dL (0.2-1.0) Aspartate Amino Transf (AST/SGOT) 18 U/L (15-37) Alanine Aminotransferase (ALT/SGPT) 27 U/L (14-59) Alkaline Phosphatase 110 U/L (46-116) Total Protein 4.5 g/dL (6.4-8.2) Albumin 1.0 g/dL (3.4-5.0) Albumin/Globulin Ratio 0.3 (1.0-1.7) Test 10/05/19 06:13 Glucose (Fingerstick) 108 mg/dL (70-99) Micro 09/24 GRAM STAIN Final Final GRAM NEGATIVE RODS:MODERATE SQUAMOUS EPI CELL:NOT APPLICABLE PMN (WBCs):RARE YEAST:MODERATE Unless otherwise specified, Testing Performed by: [address] [address] For Inquires, the Physician may contact the Microbiology department at [phone] ANAEROBIC-AEROBIC CULTURE Preliminary Preliminary MANY GRAM NEGATIVE RODS on 09/27/19 at 1158 FINAL ID= [PSEUDOMONAS [email or web address]] PSEUDOMONAS AERUGINOSA ANTIMICROBIAL SUSCEPTIBILITY Preliminary Comment NEG ALEXANDRA 56 PSEUDOMONAS AERUGINOSA ANTIBIOTIC RESULT INTERPRETATION AMIKACIN <=16 S AZTREONAM >16 R CEFTAZIDIME >16 R CIPROFLOXACIN <=0.25 S CEFEPIME 16 I CEFTAZIDIME/AVIBACTAM <=4 S GENTAMICIN <=2 S CONTINUED ON NEXT PAGE RUN DATE: 09/29/19 [facility] *LIVE* PAGE 2 RUN TIME: 1016 Specimen Inquiry SPEC: [id number] PATIENT: BHAVESH CUELLARMEG [place] [id number] (Continued) Procedure Result ANTIMICROBIAL SUSCEPTIBILITY Preliminary (continued) LEVOFLOXACIN <=0.5 S MEROPENEM <=1 S PIPERACILLIN/TAZOBACTAM 64 S TOBRAMYCIN <=2 S Unless otherwise specified, Testing Performed by: [address] [address] For Inquires, the Physician may contact the Microbiology department at [phone] CT Scan 09/23 IMPRESSION: 1. Removal of the percutaneous pigtail drainage catheters since the prior exam. Sequela of pancreatitis with extensive pseudocysts again demonstrated, the right-sided collections are slightly larger since the prior exam, the left-sided collections are stable. See above. 2. Moderate to large left pleural effusion with atelectasis and collapse of most of the left lower lobe, stable. Small right pleural effusion is stable. 3. Gallstone. Objective Assessment Patient with prolonged hospitalization Multiple medical problems Multiple surgical procedures S/p CT on left 10/02 890 ml overnight 09/24 fluid cult PSAE (MDRO),yeast moderate s/p drain times three R Cefepime, Zosyn ALEXANDRA < 64 CXR with Left lung white-out 09/30 ? effusion PSA 10/02 in sputum I Meropenem Acute hypoxic resp failure on 35 % and 5 PEEP Transaminitis - mild Fever improving Acute pancreatitis with persistent necrosis CT a/p 07/27 Increased ascites. 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 Sequela of pancreatitis with extensive pseudocysts again demonstrated, the right-sided collections are slightly larger since the prior exam, the left-sided collections are stable. Cholelithiasis with thickening of the gallbladder wall. Leucocytosis - better JUANA,Hyperkalemia, Metabolic acidosis off dialysis Acute hypoxic resp failure ,bilateral pleural effusion and atelectasis hypocalcemia Prediabetes HTN s/p trach S/p thoracenteis 08/29 Plan Plan of Care Consider d/c art- line placed 09/24 Sputum from 09/30 - growing PSA - may be colonization I to Meropenem and clinically stable from resp standpoint. Will try to not treat so as to conserve abx and avoid resistance but if worsens will add Cipro Continue meropenem, has MDRP PSAE September 24 from abd cont micafungin September 24 Follow-up cultures fluid for yeast IR eval abd drains Monitor a.m. labs - CMP/CBC General surgery following Monitor drain output Maintain aspiration precaution Supportive care [facility] micro [phone] Critically ill D/w nursing WILLY BARAKAT MD Oct 05, 2019 07:19
[2019-10-05] MEDS: ACETYLCYSTEINE 20% for RESP TX 600 MG/3 ML. NEB SCH ×2 (07:45→20:00)
[2019-10-05] MEDS: PANTOPRAZOLE IV PUSH 40 MG VIAL. IVP SCH (07:46)
[2019-10-05] MEDS: POTASSIUM CHLORIDE 20MEQ 100 ML IV SCH ×2 (07:48→09:12)
[2019-10-05 08:12] LABS: BASE EXCESS ABG -4 mmol/L (-3-3); HCO3 ABG 19 mmol/L (21-28); PCO2 ABG 27 mmHg (35-46); PO2 ABG 109 mmHg (75-108); SAT O2 ABG 98 % (92-99)
[2019-10-05 08:16] LABS: FIO2 ABG 35
[2019-10-05] MEDS: MEROPENEM 1 GM in IV NORMAL SALINE 100ML 100 ML IV SCH ×2 (08:23→21:56)
--- NOTE | 2019-10-05 09:06 | PDOC ---
PROGRESS NOTES Chief Complaint Chief Complaint impression History of Present Illness 48yo F w/ PMHx HTN, prediabetes who presented the emergency room complaints of abdominal pain. Patient described off and on 3 days. She states is constant, described as a squeezing sensation in a band-like distribution. + nausea, vomiting. She denies any fever or diarrhea. Patient denies any abdominal surgical procedures. She states is worse with movements, car ride. Pain initially was upper abdomen however now pretty much generalized. Last bowel movement was 07/03/2019. Nothing makes her pain better. Patient denies any shortness of breath. She does state the pain moves into her chest. Denies any headache or visual changes. Lipase 98832, AST 401, ALT 249, Bilirubin 1.4. CT abdomen confirms pancreatic inflammation, peripancreatic fluid and inflammatory changes around the pancreas consistent with pancreatitis. Cholelithiasis and 1.4cm uterine fibroid as well as possible left salpingitis. Admitted for further care impression Acute hypoxic Respiratory failure required mechanical ventilation Tracheostomy bilateral pleural effusions/pulm edema s/p Throacentesis on 10/03/2019 Severe Acute gallstone pancreatitis (not a surgical candidate at this time) with necrosis Acute kidney failure now requiring dialysis Gallstones (Calculus of gallbladder with acute cholecystitis without obstruction) HTN Intractable pain Intractable nausea Covid 19 negative. Acute on chronic anemia EEG: No seizure activityFever - better currently - intermittent could be from underlying pancreatitis blood cults 08/21 - neg so far ? Ileus with vomiting Abd distention - U/S and CT reviewed s/p 0.4 L of opaque, debris-containing ascites was removed 08/23 Acute pancreatitis with persistent necrosis - 08/14 status post KAYLIN drain placement + C paropsilosis. s/p additional drains 08/25 Anemia - S/p PRBCs Cholelithiasis with thickening of the gallbladder wall. Leucocytosis improving JUANA, hyperkalemia, Metabolic acidosis off dialysis hypocalcemia Prediabetes HTN s/p trach ESRD on HD Hyperglycemia FEN - PPX - SCDs, off lovenox currently, high risk for thrombosis but in light of her recent anemia and need for transfusion the risks do not outweigh benefits at this time. will continue to evaluate on a daily basis FULL CODE Dispo - ICU, critically ill BACK ON VENT 10/04 vent // no distress History of Present Illness History of Present Illness 09/25: IR placed drain on 09/24. 4u PRBC after Hb drop. Hb 8.8 today. Off Levophed this morning. T-max 100.3. Much more lethargic today. CXR with left sided diffuse infiltrates. 09/26: Tachycardic overnight into the 140s. NGT clamped. On BIPAP currently. Drains with serosanguinous discharge. WBC 8, Tmax 99.6F. 09/27: Seen on trach shield in ICU. Hypertensive and tachycardic. Labs stable. blood stained drainage from drains. Afebrile. 09/28: Seen on trach shield in ICU. She is a bit confused, drowsy, but when sitting up is conversational and confusion somewhat clears. She is asking for more pain medication. Stable drains, still very tachy.Na 147 09/29: Patient vomited overnight. Aspirated. Tried to pull her trach out, she was told she would without her trach, she said "I know, I just want to go home". Hb 7.6. Afebrile, still very tachycardic. 1055ml out of right sided KAYLIN drain 09/30: Overnight hypoxic, on BIPAP. CXR with left sided white out lung. Significant mucous plug suctioned by RT with improvement in her ABG after 2 hours this morning. Not really active, tired, lethargic. 890ml out of drains past 24 hours. On vent. D/w daughter bedside. 10/01: Still on vent overnight with copious pulmonary drainage on suctioning. Lab s stable, UOP stable 1L. Drain output still significant with 1505mL. She has shown her phone password [id number] and made it clear she does not want her daughters to access her phone at this time. :15: Patient quite frail, she has had such a lengthy hospital stay that she is certainly depressed and as documented 3 days ago is wanting to go home. Most likely patient is also tired of being hospitalized with an end point no where in sight. Reassurance and encouragement provided during my visit. Plans for thoracentesis later in the day 10/03: No acute events reported overnight, case discussed with nursing staff patient in no acute distress, complaints of the abdomimal pain during my visit, patient is quite depressed, reassurance has been provided, discussed with nursing staff at bedside, replace electrolytes 10/04 off vent / on TS , no distress 10/04 Patient seen and examined ICU BED critically ill concerned about her long-term prognosis Sputum from 09/30 - growing PSA - may be colonization I to Meropenem add Cipro Continue meropenem, has MDRP PSAE September 24 from abd cont micafungin September 24 33 MIN CC TIME Date: Aug 15, 2019 Pre-Op Diagnosis: Necrotizing pancreatitis Post-Op Diagnosis: same Procedure Performed: laparoscopic exploration Surgeon: Renzo Servin Asst: Dr. Arturo Harris Anesthesia Type: GETA plus local Blood Loss: 50 Specimans Obtained: cultures, debris Findings: 1000 cc ascites suctioned off, cultures sent, diffuse debris, obliteration of surgical planes preventing any meaningful exploration 09/22/2019 Patient seen and examined in the ICU She remains critically ill is is extremely weak Chart reviewed Discussed with RN We decided to try some Prozac as she does seem depressed On IV TPN Still has NG tube 09/21/2019 Patient seen and examined in the ICU She remains critically ill We have been trying to hold off on her Ativan for the past 24 hours She is a little more awake but shaky and agitated and anxious seems depressed Discussed with RN Chart reviewed 09/20/2019 Patient seen and examined in the ICU She is a little more alert today but still quite ill Appears clammy and pale and depressed/anxious Discussed with RN Chart reviewed 09/19/2019 Patient seen and examined in the ICU She appears extremely ill She is tachypneic at 35 respirations per minute and tachycardic at 132 bpm She is extremely encephalopathic and shaky She appears clammy Chart reviewed Discussed with RN Prognosis extremely guarded at best 09/18/2019 Patient still in ICU Resting with no apparent distress Chart reviewed 09/17/2019 Patient seen and examined in the ICU She is wiping her face with a cough Discussed with RN Chart reviewed We hope to get her out of the ICU later today if possible 09/16/2019 Patient seen and examined in the ICU once again She is back on NG suction On IV Zosyn Has IV TPN Sedated with Precedex but anxious still Appears somewhat clammy and pale Chart reviewed Discussed with RN She remains critically ill BRIEF OPERATIVE NOTE Pre-Op Diagnosis Pancreatitis with pseudocysts, suspected infection Post-Op Diagnosis same Procedure Performed CT abdominal Drains x 3 Surgeon Tesfaye Anesthesia Type: Conscious Sedation Findings 3 abdominal drains, 14F, with turbid pancreatic fluid and necrotic debris in each. Complications No immediate 08/26: Patient today somewhat restless and having bilious secretions from ET tube, imaging studies ordered, discussed with healthcare economics consultant. Pretty poor prognosis, hopefully is not a fistula, poor surgical candidate. 08/27: Imaging with no acute events, she seems more stable today compared to yesterday. Encouraged as much activity as possible patient at high risk for severe depression. Vitals Vitals Vital Signs Date Time Temp Pulse Resp B/P (MAP) Pulse Ox O2 Delivery O2 Flow Rate FiO2 10/05/19 09:00 104 20 153/70 (97) 98 Ventilator 10/05/19 08:00 99.0 99.0 10/04/19 17:00 9.0 Physical Exam Physical Exam off vent / on TS , no distress GENERAL: More Alert and looks comfortable HEENT: NGT in place. Oral mucosa dry NECK: Tracheostomy LUNGS: Diminished aeration bases, no accessory muscle use - CT on left with clear fluid HEART: S1, S2, tachy, regular ABDOMEN: Mild distention, bowel sounds present, soft, grimaces to palpation Right lateral side drainage bag, 3 drains with bloodstained drainage. 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: Lethargic very weak LUE-PICC (09/15) without signs of complications - art line without complications General: Oriented X3, Cooperative, No acute distress Heart: Regular rate, Normal S1, Normal S2, No murmurs, Gallops Lungs: Other (diminshed in bases, Rhonci in LLL) Abdomen: Soft, Other (drains in place) Extremities: No clubbing, No cyanosis, No edema, Normal pulses, No tenderness/swelling Skin: Other (warm, dry) Labs LABS GRAM STAIN Final Final GRAM NEGATIVE RODS:MODERATE SQUAMOUS EPI CELL:NOT APPLICABLE PMN (WBCs):RARE YEAST:MODERATE Unless otherwise specified, Testing Performed by: [address] [place] [address] For Inquires, the Physician may contact the Microbiology department at [phone] ANAEROBIC-AEROBIC CULTURE Preliminary Preliminary MANY GRAM NEGATIVE RODS on 09/27/19 at 1158 FINAL ID= [[email or web address]] PSEUDOMONAS AERUGINOSA ANTIMICROBIAL SUSCEPTIBILITY Preliminary Comment NEG ALEXANDRA 56 PSEUDOMONAS AERUGINOSA ANTIBIOTIC RESULT INTERPRETATION AMIKACIN <=16 S AZTREONAM >16 R CEFTAZIDIME >16 R CIPROFLOXACIN <=0.25 S CEFEPIME 16 I CEFTAZIDIME/AVIBACTAM <=4 S GENTAMICIN <=2 S Laboratory Tests Test 10/04/19 12:19 10/05/19 00:23 10/05/19 06:00 10/05/19 06:13 Glucose (Fingerstick) 145 mg/dL (70-99) 95 mg/dL (70-99) 108 mg/dL (70-99) White Blood Count 8.0 x10^3/uL (4.0-11.0) Red Blood Count 3.14 x10^6/uL (3.50-5.40) Hemoglobin 8.9 g/dL (12.0-15.5) Hematocrit 26.7 % (36.0-47.0) Mean Corpuscular Volume 85 fL (79-100) Mean Corpuscular Hemoglobin 29 pg (25-35) Mean Corpuscular Hemoglobin Concent 34 g/dL (31-37) Red Cell Distribution Width 18.3 % (11.5-14.5) Platelet Count 424 x10^3/uL (140-400) Neutrophils (%) (Auto) 73 % (31-73) Lymphocytes (%) (Auto) 22 % (24-48) Monocytes (%) (Auto) 4 % (0-9) Eosinophils (%) (Auto) 1 % (0-3) Basophils (%) (Auto) 0 % (0-3) Neutrophils # (Auto) 5.8 x10^3/uL (1.8-7.7) Lymphocytes # (Auto) 1.7 x10^3/uL (1.0-4.8) Monocytes # (Auto) 0.3 x10^3/uL (0.0-1.1) Eosinophils # (Auto) 0.1 x10^3/uL (0.0-0.7) Basophils # (Auto) 0.0 x10^3/uL (0.0-0.2) Sodium Level 140 mmol/L (136-145) Potassium Level 3.4 mmol/L (3.5-5.1) Chloride Level 106 mmol/L (98-107) Carbon Dioxide Level 25 mmol/L (21-32) Anion Gap 9 (6-14) Blood Urea Nitrogen 23 mg/dL (7-20) Creatinine 0.7 mg/dL (0.6-1.0) Estimated GFR (Cockcroft-Gault) 88.9 BUN/Creatinine Ratio 33 (6-20) Glucose Level 121 mg/dL (70-99) Calcium Level 9.0 mg/dL (8.5-10.1) Magnesium Level 1.7 mg/dL (1.8-2.4) Total Bilirubin 0.6 mg/dL (0.2-1.0) Aspartate Amino Transf (AST/SGOT) 18 U/L (15-37) Alanine Aminotransferase (ALT/SGPT) 27 U/L (14-59) Alkaline Phosphatase 110 U/L (46-116) Total Protein 4.5 g/dL (6.4-8.2) Albumin 1.0 g/dL (3.4-5.0) Albumin/Globulin Ratio 0.3 (1.0-1.7) Test 10/05/19 07:45 O2 Saturation 98 % (92-99) Arterial Blood pH 7.47 (7.35-7.45) Arterial Blood pCO2 at Patient Temp 27 mmHg (35-46) Arterial Blood pO2 at Patient Temp 109 mmHg (75-108) Arterial Blood HCO3 19 mmol/L (21-28) Arterial Blood Base Excess -4 mmol/L (-3-3) FiO2 35 Assessment and Plan Assessmemt and Plan Problems Medical Problems: (1) Acute pancreatitis Status: Acute (2) Cholelithiasis Status: Acute History of Present Illness History of Present Illness Ms Diaz is a 48yo F w/ PMHx HTN, prediabetes who presents the emergency room complaints of abdominal pain. Patient described off and on 3 days. She states is constant, described as a squeezing sensation in a band-like distribution. + nausea, vomiting. She denies any fever or diarrhea. Patient denies any abdominal surgical procedures. She states is worse with movements, car ride. Pain initially was upper abdomen however now pretty much generalized. Last bowel movement was 07/03/2019. Nothing makes her pain better. Patient denies any shortness of breath. She does state the pain moves into her chest. Denies any headache or visual changes. Lipase 64230, AST 401, ALT 249, Bilirubin 1.4. CT abdomen confirms pancreatic inflammation, peripancreatic fluid and inflammatory changes around the pancreas consistent with pancreatitis. Cholelithiasis and 1.4cm uterine fibroid as well as possible left salpingitis. Admitted for further care Past Medical History Cardiovascular: HTN Past Surgical History Past Surgical History: Other (Breast augmentation) Family History Family History: High Cholestrol, Hypertension Social History Smoke: No ALCOHOL: rare Drugs: None Comment Review of Relevant I have reviewed the following items kolby (where applicable) has been applied. Labs Laboratory Tests Test 10/03/19 11:47 10/03/19 17:24 10/04/19 01:26 10/04/19 06:20 Glucose (Fingerstick) 121 mg/dL (70-99) 105 mg/dL (70-99) 113 mg/dL (70-99) 122 mg/dL (70-99) White Blood Count 8.4 x10^3/uL (4.0-11.0) Red Blood Count 3.38 x10^6/uL (3.50-5.40) Hemoglobin 9.7 g/dL (12.0-15.5) Hematocrit 28.9 % (36.0-47.0) Mean Corpuscular Volume 86 fL (79-100) Mean Corpuscular Hemoglobin 29 pg (25-35) Mean Corpuscular Hemoglobin Concent 34 g/dL (31-37) Red Cell Distribution Width 18.6 % (11.5-14.5) Platelet Count 432 x10^3/uL (140-400) Neutrophils (%) (Auto) 79 % (31-73) Lymphocytes (%) (Auto) 16 % (24-48) Monocytes (%) (Auto) 4 % (0-9) Eosinophils (%) (Auto) 1 % (0-3) Basophils (%) (Auto) 0 % (0-3) Neutrophils # (Auto) 6.6 x10^3/uL (1.8-7.7) Lymphocytes # (Auto) 1.3 x10^3/uL (1.0-4.8) Monocytes # (Auto) 0.3 x10^3/uL (0.0-1.1) Eosinophils # (Auto) 0.1 x10^3/uL (0.0-0.7) Basophils # (Auto) 0.0 x10^3/uL (0.0-0.2) Sodium Level 141 mmol/L (136-145) Potassium Level 3.6 mmol/L (3.5-5.1) Chloride Level 108 mmol/L (98-107) Carbon Dioxide Level 23 mmol/L (21-32) Anion Gap 10 (6-14) Blood Urea Nitrogen 28 mg/dL (7-20) Creatinine 0.7 mg/dL (0.6-1.0) Estimated GFR (Cockcroft-Gault) 88.9 Glucose Level 129 mg/dL (70-99) Calcium Level 8.9 mg/dL (8.5-10.1) Magnesium Level 1.5 mg/dL (1.8-2.4) Triglycerides Level 251 mg/dL (0-150) Test 10/04/19 08:00 10/04/19 12:19 10/05/19 00:23 10/05/19 06:00 O2 Saturation 98 % (92-99) Arterial Blood pH 7.39 (7.35-7.45) Arterial Blood pCO2 at Patient Temp 34 mmHg (35-46) Arterial Blood pO2 at Patient Temp 121 mmHg (75-108) Arterial Blood HCO3 20 mmol/L (21-28) Arterial Blood Base Excess -4 mmol/L (-3-3) FiO2 35% Glucose (Fingerstick) 145 mg/dL (70-99) 95 mg/dL (70-99) White Blood Count 8.0 x10^3/uL (4.0-11.0) Red Blood Count 3.14 x10^6/uL (3.50-5.40) Hemoglobin 8.9 g/dL (12.0-15.5) Hematocrit 26.7 % (36.0-47.0) Mean Corpuscular Volume 85 fL (79-100) Mean Corpuscular Hemoglobin 29 pg (25-35) Mean Corpuscular Hemoglobin Concent 34 g/dL (31-37) Red Cell Distribution Width 18.3 % (11.5-14.5) Platelet Count 424 x10^3/uL (140-400) Neutrophils (%) (Auto) 73 % (31-73) Lymphocytes (%) (Auto) 22 % (24-48) Monocytes (%) (Auto) 4 % (0-9) Eosinophils (%) (Auto) 1 % (0-3) Basophils (%) (Auto) 0 % (0-3) Neutrophils # (Auto) 5.8 x10^3/uL (1.8-7.7) Lymphocytes # (Auto) 1.7 x10^3/uL (1.0-4.8) Monocytes # (Auto) 0.3 x10^3/uL (0.0-1.1) Eosinophils # (Auto) 0.1 x10^3/uL (0.0-0.7) Basophils # (Auto) 0.0 x10^3/uL (0.0-0.2) Sodium Level 140 mmol/L (136-145) Potassium Level 3.4 mmol/L (3.5-5.1) Chloride Level 106 mmol/L (98-107) Carbon Dioxide Level 25 mmol/L (21-32) Anion Gap 9 (6-14) Blood Urea Nitrogen 23 mg/dL (7-20) Creatinine 0.7 mg/dL (0.6-1.0) Estimated GFR (Cockcroft-Gault) 88.9 BUN/Creatinine Ratio 33 (6-20) Glucose Level 121 mg/dL (70-99) Calcium Level 9.0 mg/dL (8.5-10.1) Magnesium Level 1.7 mg/dL (1.8-2.4) Total Bilirubin 0.6 mg/dL (0.2-1.0) Aspartate Amino Transf (AST/SGOT) 18 U/L (15-37) Alanine Aminotransferase (ALT/SGPT) 27 U/L (14-59) Alkaline Phosphatase 110 U/L (46-116) Total Protein 4.5 g/dL (6.4-8.2) Albumin 1.0 g/dL (3.4-5.0) Albumin/Globulin Ratio 0.3 (1.0-1.7) Test 10/05/19 06:13 10/05/19 07:45 Glucose (Fingerstick) 108 mg/dL (70-99) O2 Saturation 98 % (92-99) Arterial Blood pH 7.47 (7.35-7.45) Arterial Blood pCO2 at Patient Temp 27 mmHg (35-46) Arterial Blood pO2 at Patient Temp 109 mmHg (75-108) Arterial Blood HCO3 19 mmol/L (21-28) Arterial Blood Base Excess -4 mmol/L (-3-3) FiO2 35 Laboratory Tests Test 10/04/19 12:19 10/05/19 00:23 10/05/19 06:00 10/05/19 06:13 Glucose (Fingerstick) 145 mg/dL (70-99) 95 mg/dL (70-99) 108 mg/dL (70-99) White Blood Count 8.0 x10^3/uL (4.0-11.0) Red Blood Count 3.14 x10^6/uL (3.50-5.40) Hemoglobin 8.9 g/dL (12.0-15.5) Hematocrit 26.7 % (36.0-47.0) Mean Corpuscular Volume 85 fL (79-100) Mean Corpuscular Hemoglobin 29 pg (25-35) Mean Corpuscular Hemoglobin Concent 34 g/dL (31-37) Red Cell Distribution Width 18.3 % (11.5-14.5) Platelet Count 424 x10^3/uL (140-400) Neutrophils (%) (Auto) 73 % (31-73) Lymphocytes (%) (Auto) 22 % (24-48) Monocytes (%) (Auto) 4 % (0-9) Eosinophils (%) (Auto) 1 % (0-3) Basophils (%) (Auto) 0 % (0-3) Neutrophils # (Auto) 5.8 x10^3/uL (1.8-7.7) Lymphocytes # (Auto) 1.7 x10^3/uL (1.0-4.8) Monocytes # (Auto) 0.3 x10^3/uL (0.0-1.1) Eosinophils # (Auto) 0.1 x10^3/uL (0.0-0.7) Basophils # (Auto) 0.0 x10^3/uL (0.0-0.2) Sodium Level 140 mmol/L (136-145) Potassium Level 3.4 mmol/L (3.5-5.1) Chloride Level 106 mmol/L (98-107) Carbon Dioxide Level 25 mmol/L (21-32) Anion Gap 9 (6-14) Blood Urea Nitrogen 23 mg/dL (7-20) Creatinine 0.7 mg/dL (0.6-1.0) Estimated GFR (Cockcroft-Gault) 88.9 BUN/Creatinine Ratio 33 (6-20) Glucose Level 121 mg/dL (70-99) Calcium Level 9.0 mg/dL (8.5-10.1) Magnesium Level 1.7 mg/dL (1.8-2.4) Total Bilirubin 0.6 mg/dL (0.2-1.0) Aspartate Amino Transf (AST/SGOT) 18 U/L (15-37) Alanine Aminotransferase (ALT/SGPT) 27 U/L (14-59) Alkaline Phosphatase 110 U/L (46-116) Total Protein 4.5 g/dL (6.4-8.2) Albumin 1.0 g/dL (3.4-5.0) Albumin/Globulin Ratio 0.3 (1.0-1.7) Test 10/05/19 07:45 O2 Saturation 98 % (92-99) Arterial Blood pH 7.47 (7.35-7.45) Arterial Blood pCO2 at Patient Temp 27 mmHg (35-46) Arterial Blood pO2 at Patient Temp 109 mmHg (75-108) Arterial Blood HCO3 19 mmol/L (21-28) Arterial Blood Base Excess -4 mmol/L (-3-3) FiO2 35 Microbiology 10/03/19 Gram Stain - Final, Resulted 10/03/19 Aerobic and Anaerobic Culture - Preliminary, Resulted 10/01/19 Gram Stain Evaluation - Final, Complete 10/01/19 Respiratory Culture - Final, Complete 10/01/19 Antimicrobic Susceptibility - Final, Complete 09/25/19 Blood Culture - Final, Complete NO GROWTH AFTER 5 DAYS 09/25/19 Urine Culture - Final, Complete 09/17/19 Gram Stain - Final, Complete 09/17/19 Aerobic Culture - Final, Complete Medications Current Medications Sodium Chloride 1,000 ml @ 1,000 mls/hr Q1H IV Last administered on 07/04/19at 03:00; Start 07/04/19 at 03:00; Stop 3/16/20 at 03:59; Status DC Ondansetron HCl (Zofran) 4 mg 1X ONCE IVP Last administered on 07/04/19at 03:27; Start 07/04/19 at 03:00; Stop 07/04/19 at 03:01; Status DC Morphine Sulfate (Morphine Sulfate) 4 mg 1X ONCE IV ; Start 07/04/19 at 03:00; Stop 07/04/19 at 03:01; Status Cancel Ketorolac Tromethamine (Toradol 30mg Vial) 30 mg 1X ONCE IV Last administered on 07/04/19at 02:54; Start 07/04/19 at 03:00; Stop 07/04/19 at 03:01; Status DC Fentanyl Citrate (Fentanyl 2ml Vial) 25 mcg 1X ONCE IVP Last administered on 07/04/19at 03:23; Start 07/04/19 at 03:30; Stop 07/04/19 at 03:31; Status DC Fentanyl Citrate (Fentanyl 2ml Vial) 100 mcg STK-MED ONCE .ROUTE ; Start 07/04/19 at 03:18; Stop 07/04/19 at 03:18; Status DC Iohexol (Omnipaque 350 Mg/ml) 90 ml 1X ONCE IV Last administered on 07/04/19at 03:25; Start 07/04/19 at 03:30; Stop 07/04/19 at 03:31; Status DC Info (CONTRAST GIVEN -- Rx MONITORING) 1 each PRN DAILY PRN MC SEE COMMENTS; Start 07/04/19 at 03:30; Stop 07/06/19 at 03:29; Status DC Hydromorphone HCl (Dilaudid) 0.5 mg 1X ONCE IV Last administered on 07/04/19at 03:55; Start 07/04/19 at 04:30; Stop 07/04/19 at 04:32; Status DC Ondansetron HCl (Zofran) 4 mg PRN Q8HRS PRN IV NAUSEA/VOMITING 1ST CHOICE; Start 07/04/19 at 05:00; Stop 07/04/19 at 09:27; Status DC Morphine Sulfate (Morphine Sulfate) 2 mg PRN Q2HR PRN IV SEVERE PAIN 7-10 Last administered on 07/05/19at 12:26; Start 07/04/19 at 05:00; Stop 07/05/19 at 14: 15; Status DC Sodium Chloride 1,000 ml @ 125 mls/hr Q8H IV Last administered on 07/04/19at 20:56; Start 07/04/19 at 05:00; Stop 07/05/19 at 04:59; Status DC Hydromorphone HCl (Dilaudid) 0.5 mg PRN Q3HRS PRN IV SEVERE PAIN 7-10 Last administered on 07/05/19at 10:06; Start 07/04/19 at 05:00; Stop 07/05/19 at 12:01; Status DC Piperacillin Sod/ Tazobactam Sod 4.5 gm/Sodium Chloride 100 ml @ 200 mls/hr 1X ONCE IV Last administered on 07/04/19at 05:44; Start 07/04/19 at 06:00; Stop 07/04/19 at 06:29; Status DC Ondansetron HCl (Zofran) 4 mg PRN Q4HRS PRN IV NAUSEA/VOMITING 1ST CHOICE Last administered on 10/04/19at 08:21; Start 07/04/19 at 09:30 Insulin Human Lispro (HumaLOG) 0-9 UNITS Q6HRS SQ Last administered on 10/02/19at 12:21; Start 07/04/19 at 09:30 Dextrose (Dextrose 50%-Water Syringe) 12.5 gm PRN Q15MIN PRN IV SEE COMMENTS; Start 07/04/19 at 09:30 Pantoprazole Sodium (PROTONIX VIAL for IV PUSH) 40 mg DAILYAC IVP Last administered on 10/05/19at 07:46; Start 07/04/19 at 11:30 Prochlorperazine Edisylate (Compazine) 10 mg PRN Q6HRS PRN IV NAUSEA/VOMITING, 2nd CHOICE Last administered on 10/04/19at 15:49; Start 07/04/19 at 17:45 Atenolol (Tenormin) 100 mg DAILY PO ; Start 07/05/19 at 09:00; Stop 07/04/19 at 20:08; Status DC Metoprolol Tartrate (Lopressor Vial) 2.5 mg Q6HRS IVP Last administered on 07/05/19at 05:51; Start 07/04/19 at 20:15; Stop 07/05/19 at 10:02; Status DC Metoprolol Tartrate (Lopressor Vial) 5 mg Q6HRS IVP Last administered on 07/14/19at 00:12; Start 07/05/19 at 10:15; Stop 07/16/19 at 08:48; Status DC Hydromorphone HCl (Dilaudid) 1 mg PRN Q3HRS PRN IV SEVERE PAIN 7-10 Last administered on 07/11/19at 05:13; Start 07/05/19 at 12:00; Stop 07/19/19 at 00:25; Status DC Lidocaine HCl (Buffered Lidocaine 1%) 3 ml STK-MED ONCE .ROUTE ; Start 07/05/19 at 12:55; Stop 07/05/19 at 12:56; Status DC Albumin Human 500 ml @ 125 mls/hr 1X ONCE IV Last administered on 07/05/19at 14:33; Start 07/05/19 at 14:30; Stop 07/05/19 at 18:32; Status DC Norepinephrine Bitartrate 8 mg/ Dextrose 258 ml @ 17.299 mls/ hr CONT PRN IV PER PROTOCOL Last administered on 08/02/19at 12:48; Start 07/05/19 at 15:30; Stop 08/05/19 at 09:19; Status DC Sodium Chloride 1,000 ml @ 125 mls/hr Q8H IV Last administered on 07/05/19at 21:04; Start 07/05/19 at 16:00; Stop 07/06/19 at 02:42; Status DC Albumin Human 500 ml @ 125 mls/hr PRN BID PRN IV After every 2L NSS & BP < 90mm Last administered on 09/24/19at 11:40; Start 07/05/19 at 16:00 Iohexol (Omnipaque 300 Mg/ml) 60 ml 1X ONCE IV Last administered on 07/05/19at 17:20; Start 07/05/19 at 17:00; Stop 07/05/19 at 17:01; Status DC Info (CONTRAST GIVEN -- Rx MONITORING) 1 each PRN DAILY PRN MC SEE COMMENTS; Start 07/05/19 at 17:00; Stop 07/07/19 at 16:59; Status DC Meropenem 1 gm/ Sodium Chloride 100 ml @ 200 mls/hr Q8HRS IV Last administered on 07/06/19at 05:45; Start 07/05/19 at 20:00; Stop 07/06/19 at 08:48; Status DC Furosemide (Lasix) 40 mg 1X ONCE IVP Last administered on 07/05/19at 22:12; Start 07/05/19 at 22:30; Stop 07/05/19 at 22:31; Status DC Calcium Chloride 1000 mg/Sodium Chloride 110 ml @ 220 mls/hr 1X ONCE IV Last administered on 07/05/19at 22:11; Start 07/05/19 at 22:30; Stop 07/05/19 at 22:59; Status DC Albuterol Sulfate (Ventolin Neb Soln) 2.5 mg 1X ONCE NEB Last administered on 07/06/19at 00:56; Start 07/05/19 at 22:30; Stop 07/05/19 at 22:31; Status DC Insulin Human Regular (HumuLIN R VIAL) 5 unit 1X ONCE IV Last administered on 07/05/19at 22:14; Start 07/05/19 at 22:30; Stop 07/05/19 at 22:31; Status DC Magnesium Sulfate 50 ml @ 25 mls/hr 1X ONCE IV Last administered on 07/06/19at 02:57; Start 07/06/19 at 03:00; Stop 07/06/19 at 04:59; Status DC Calcium Gluconate 1000 mg/Sodium Chloride 110 ml @ 220 mls/hr 1X ONCE IV Last administered on 07/06/19at 02:46; Start 07/06/19 at 03:00; Stop 07/06/19 at 03:29; Status DC Sodium Chloride 1,000 ml @ 200 mls/hr Q5H IV Last administered on 07/06/19at 02:46; Start 07/06/19 at 03:00; Stop 07/06/19 at 10:21; Status DC Calcium Gluconate 1000 mg/Sodium Chloride 110 ml @ 220 mls/hr 1X ONCE IV Last administered on 07/06/19at 03:21; Start 07/06/19 at 03:30; Stop 07/06/19 at 03:59; Status DC Sodium Bicarbonate 50 meq/Sodium Chloride 1,050 ml @ 75 mls/hr Q14H IV Last administered on 07/10/19at 21:10; Start 07/06/19 at 07:30; Stop 07/11/19 at 10:28; Status DC Calcium Gluconate 2000 mg/Sodium Chloride 120 ml @ 220 mls/hr 1X ONCE IV Last administered on 07/06/19at 09:05; Start 07/06/19 at 07:30; Stop 07/06/19 at 08:02; Status DC Lidocaine HCl (Xylocaine-Mpf 1% 2ml Vial) 2 ml STK-MED ONCE .ROUTE ; Start 07/06/19 at 08:47; Stop 07/06/19 at 08:47; Status DC Meropenem 500 mg/ Sodium Chloride 50 ml @ 100 mls/hr Q12HR IV Last administered on 07/11/19at 21:01; Start 07/06/19 at 18:00; Stop 07/12/19 at 07:58; Status DC Lidocaine HCl (Buffered Lidocaine 1%) 3 ml STK-MED ONCE .ROUTE ; Start 07/06/19 at 09:46; Stop 07/06/19 at 09:46; Status DC Lidocaine HCl (Buffered Lidocaine 1%) 6 ml 1X ONCE INJ Last administered on 07/06/19at 10:26; Start 07/06/19 at 10:15; Stop 07/06/19 at 10:16; Status DC Info (Tpn Per Pharmacy) 1 each PRN DAILY PRN MC SEE COMMENTS Last administered on 10/04/19at 10:11; Start 07/06/19 at 12:00 Sodium Chloride 1,000 ml @ 1,000 mls/hr Q1H PRN IV hypotension; Start 07/06/19 at 12:07; Stop 07/06/19 at 18:06; Status DC Diphenhydramine HCl (Benadryl) 25 mg 1X PRN PRN IV ITCHING; Start 07/06/19 at 12:15; Stop 07/07/19 at 12:14; Status DC Diphenhydramine HCl (Benadryl) 25 mg 1X PRN PRN IV ITCHING; Start 07/06/19 at 12:15; Stop 07/07/19 at 12:14; Status DC Sodium Chloride 1,000 ml @ 400 mls/hr Q2H30M PRN IV PATENCY; Start 07/06/19 at 12:07; Stop 07/07/19 at 00:06; Status DC Info (PHARMACY MONITORING -- do not chart) 1 each PRN DAILY PRN MC SEE COMMENTS; Start 07/06/19 at 12:15; Stop 07/08/19 at 08:13; Status DC Sodium Chloride 90 meq/Calcium Gluconate 10 meq/ Multivitamins 10 ml/Chromium/ Copper/Manganese/ Seleni/Zn 1 ml/ Total Parenteral Nutrition/Amino Acids/Dextrose/ Fat Emulsion Intravenous 55.005 ml @ 2.292 mls/hr TPN CONT IV ; Start 07/06/19 at 22:00; Stop 07/06/19 at 12:33; Status DC Info (Tpn Per Pharmacy) 1 each PRN DAILY PRN MC SEE COMMENTS; Start 07/06/19 at 12:30; Status UNV Sodium Chloride 90 meq/Calcium Gluconate 10 meq/ Multivitamins 10 ml/Chromium/ Copper/Manganese/ Seleni/Zn 0.5 ml/ Total Parenteral Nutrition/Amino Acids/Dextrose/ Fat Emulsion Intravenous 1,512 ml @ 63 mls/hr TPN CONT IV Last administered on 07/06/19at 22:06; Start 07/06/19 at 22:00; Stop 07/07/19 at 21:59; Status DC Calcium Carbonate/ Glycine (Tums) 500 mg PRN AFTMEALHC PRN PO INDIGESTION; Start 07/06/19 at 17:45; Stop 08/31/19 at 10:25; Status DC Calcium Gluconate (Calcium Gluconate) 2,000 mg 1X ONCE IVP Last administered on 07/07/19at 02:19; Start 07/07/19 at 02:15; Stop 07/07/19 at 02:16; Status DC Calcium Chloride 3000 mg/Sodium Chloride 1,030 ml @ 50 mls/hr [id number] IV Last administered on 07/09/19at 02:17; Start 07/07/19 at 08:00; Stop 07/09/19 at 15:23; Status DC Lorazepam (Ativan Inj) 1 mg PRN Q4HRS PRN IVP ANXIETY / AGITATION, 2nd choic Last administered on 08/05/19at 03:51; Start 07/07/19 at 09:00; Stop 08/05/19 at 09:19; Status DC Sodium Chloride 1,000 ml @ 1,000 mls/hr Q1H PRN IV hypotension; Start 07/07/19 at 08:56; Stop 07/07/19 at 14:55; Status DC Albumin Human 200 ml @ 200 mls/hr 1X PRN PRN IV Hypotension; Start 07/07/19 at 09:00; Stop 07/07/19 at 14:59; Status DC Diphenhydramine HCl (Benadryl) 25 mg 1X PRN PRN IV ITCHING; Start 07/07/19 at 09:00; Stop 07/08/19 at 08:59; Status DC Diphenhydramine HCl (Benadryl) 25 mg 1X PRN PRN IV ITCHING; Start 07/07/19 at 09:00; Stop 07/08/19 at 08:59; Status DC Sodium Chloride 1,000 ml @ 400 mls/hr Q2H30M PRN IV PATENCY; Start 07/07/19 at 08:56; Stop 07/07/19 at 20:55; Status DC Info (PHARMACY MONITORING -- do not chart) 1 each PRN DAILY PRN MC SEE COMMENTS; Start 07/07/19 at 09:00; Status UNV Info (PHARMACY MONITORING -- do not chart) 1 each PRN DAILY PRN MC SEE COMMENTS; Start 07/07/19 at 09:00; Stop 07/08/19 at 08:13; Status DC Digoxin (Lanoxin) 500 mcg 1X ONCE IV Last administered on 07/07/19at 10:04; Start 07/07/19 at 10:00; Stop 07/07/19 at 10:01; Status DC Digoxin (Lanoxin) 125 mcg 1X ONCE IV Last administered on 07/07/19at 17:10; Start 07/07/19 at 18:00; Stop 07/07/19 at 18:01; Status DC Magnesium Sulfate 100 ml @ 25 mls/hr 1X ONCE IV Last administered on 07/07/19at 12:48; Start 07/07/19 at 13:00; Stop 07/07/19 at 16:59; Status DC Sodium Chloride 90 meq/Magnesium Sulfate 10 meq/ Calcium Gluconate 20 meq/ Multivitamins 10 ml/Chromium/ Copper/Manganese/ Seleni/Zn 0.5 ml/ Total Parenteral Nutrition/Amino Acids/Dextrose/ Fat Emulsion Intravenous 1,512 ml @ 63 mls/hr TPN CONT IV Last administered on 07/07/19at 22:25; Start 07/07/19 at 22:00; Stop 07/08/19 at 21:59; Status DC Sodium Chloride 1,000 ml @ 1,000 mls/hr Q1H PRN IV hypotension; Start 07/08/19 at 08:05; Stop 07/08/19 at 14:04; Status DC Albumin Human 200 ml @ 200 mls/hr 1X ONCE IV Last administered on 07/08/19at 08:57; Start 07/08/19 at 08:15; Stop 07/08/19 at 09:14; Status DC Diphenhydramine HCl (Benadryl) 25 mg 1X PRN PRN IV ITCHING; Start 07/08/19 at 08:15; Stop 07/09/19 at 08:14; Status DC Diphenhydramine HCl (Benadryl) 25 mg 1X PRN PRN IV ITCHING; Start 07/08/19 at 08:15; Stop 07/09/19 at 08:14; Status DC Sodium Chloride 1,000 ml @ 400 mls/hr Q2H30M PRN IV PATENCY; Start 07/08/19 at 08:05; Stop 07/08/19 at 20:04; Status DC Info (PHARMACY MONITORING -- do not chart) 1 each PRN DAILY PRN MC SEE COMMENTS; Start 07/08/19 at 08:15; Stop 07/12/19 at 07:57; Status DC Sodium Chloride 90 meq/Potassium Chloride 15 meq/ Potassium Phosphate 10 mmol/ Magnesium Sulfate 10 meq/Calcium Gluconate 20 meq/ Multivitamins 10 ml/Chromium/ Copper/Manganese/ Seleni/Zn 0.5 ml/ Total Parenteral Nutrition/Amino Acids/Dextrose/ Fat Emulsion Intravenous 1,512 ml @ 63 mls/hr TPN CONT IV Last administered on 07/08/19at 21:01; Start 07/08/19 at 22:00; Stop 07/09/19 at 21:59; Status DC Potassium Chloride/Water 100 ml @ 100 mls/hr 1X ONCE IV Last administered on 07/08/19at 14:09; Start 07/08/19 at 14:00; Stop 07/08/19 at 14:59; Status DC Benzocaine (Hurricaine One) 1 spray 1X ONCE MM Last administered on 07/08/19at 16:38; Start 07/08/19 at 14:30; Stop 07/08/19 at 14:31; Status DC Lidocaine HCl (Glydo (Lidocaine) Jelly) 1 ramu 1X ONCE MM Last administered on 07/08/19at 16:38; Start 07/08/19 at 14:30; Stop 07/08/19 at 14:31; Status DC Linezolid/Dextrose 300 ml @ 300 mls/hr Q12HR IV Last administered on 07/14/19at 21:04; Start 07/08/19 at 20:00; Stop 07/15/19 at 07:50; Status DC Acetaminophen (Tylenol) 650 mg PRN Q6HRS PRN PO MILD PAIN / TEMP; Start 07/09/19 at 03:30; Stop 07/09/19 at 03:36; Status DC Acetaminophen (Tylenol) 650 mg PRN Q6HRS PRN PEG MILD PAIN / TEMP Last administered on 08/04/19at 19:56; Start 07/09/19 at 03:36; Stop 08/31/19 at 10:25; Status DC Sodium Chloride 1,000 ml @ 1,000 mls/hr Q1H PRN IV hypotension; Start 07/09/19 at 07:50; Stop 07/09/19 at 13:49; Status DC Albumin Human 200 ml @ 200 mls/hr 1X PRN PRN IV Hypotension; Start 07/09/19 at 08:00; Stop 07/09/19 at 13:59; Status DC Sodium Chloride (Normal Saline Flush) 10 ml 1X PRN PRN IV AP catheter pack; Start 07/09/19 at 08:00; Stop 07/10/19 at 07:59; Status DC Sodium Chloride (Normal Saline Flush) 10 ml 1X PRN PRN IV NORMALIZER catheter pack; Start 07/09/19 at 08:00; Stop 07/10/19 at 07:59; Status DC Sodium Chloride 1,000 ml @ 400 mls/hr Q2H30M PRN IV PATENCY; Start 07/09/19 at 07:50; Stop 07/09/19 at 19:49; Status DC Info (PHARMACY MONITORING -- do not chart) 1 each PRN DAILY PRN MC SEE COMMENTS; Start 07/09/19 at 08:00; Status UNV Info (PHARMACY MONITORING -- do not chart) 1 each PRN DAILY PRN MC SEE COMMENTS ; Start 07/09/19 at 08:00; Stop 07/11/19 at 08:25; Status DC Sodium Chloride 90 meq/Potassium Chloride 15 meq/ Potassium Phosphate 10 mmol/ Magnesium Sulfate 10 meq/Calcium Gluconate 20 meq/ Multivitamins 10 ml/Chromium/ Copper/Manganese/ Seleni/Zn 0.5 ml/ Total Parenteral Nutrition/Amino Acids/Dextrose/ Fat Emulsion Intravenous 1,512 ml @ 63 mls/hr TPN CONT IV Last administered on 07/09/19at 20:57; Start 07/09/19 at 22:00; Stop 07/10/19 at 21:59; Status DC Sodium Chloride 90 meq/Potassium Chloride 15 meq/ Potassium Phosphate 15 mmol/ Magnesium Sulfate 10 meq/Calcium Gluconate 20 meq/ Multivitamins 10 ml/Chromium/ Copper/Manganese/ Seleni/Zn 0.5 ml/ Total Parenteral Nutrition/Amino Acids/Dextrose/ Fat Emulsion Intravenous 1,512 ml @ 63 mls/hr TPN CONT IV ; Start 07/10/19 at 22:00; Stop 07/10/19 at 14:16; Status DC Sodium Chloride 90 meq/Potassium Chloride 15 meq/ Potassium Phosphate 15 mmol/ Magnesium Sulfate 10 meq/Calcium Gluconate 20 meq/ Multivitamins 10 ml/Chromium/ Copper/Manganese/ Seleni/Zn 0.5 ml/ Total Parenteral Nutrition/Amino Acids/Dextrose/ Fat Emulsion Intravenous 1,200 ml @ 50 mls/hr TPN CONT IV ; Start 07/10/19 at 22:00; Stop 07/10/19 at 14:17; Status DC Sodium Chloride 90 meq/Potassium Chloride 15 meq/ Potassium Phosphate 10 mmol/ M agnesium Sulfate 10 meq/Calcium Gluconate 20 meq/ Multivitamins 10 ml/Chromium/ Copper/Manganese/ Seleni/Zn 0.5 ml/ Total Parenteral Nutrition/Amino Acids/Dextrose/ Fat Emulsion Intravenous 1,200 ml @ 50 mls/hr TPN CONT IV Last administered on 07/10/19at 23:29; Start 07/10/19 at 22:00; Stop 07/11/19 at 21:59; Status DC Sodium Chloride 1,000 ml @ 1,000 mls/hr Q1H PRN IV hypotension; Start 07/11/19 at 07:28; Stop 07/11/19 at 13:27; Status DC Albumin Human 200 ml @ 200 mls/hr 1X ONCE IV Last administered on 07/11/19at 08:51; Start 07/11/19 at 07:30; Stop 07/11/19 at 08:29; Status DC Diphenhydramine HCl (Benadryl) 25 mg 1X PRN PRN IV ITCHING; Start 07/11/19 at 07:30; Stop 07/12/19 at 07:29; Status DC Diphenhydramine HCl (Benadryl) 25 mg 1X PRN PRN IV ITCHING; Start 07/11/19 at 07:30; Stop 07/12/19 at 07:29; Status DC Sodium Chloride 1,000 ml @ 400 mls/hr Q2H30M PRN IV PATENCY; Start 07/11/19 at 07:28; Stop 07/11/19 at 19:27; Status DC Info (PHARMACY MONITORING -- do not chart) 1 each PRN DAILY PRN MC SEE COMMENTS; Start 07/11/19 at 07:30; Stop 07/22/19 at 13:01; Status DC Metronidazole 100 ml @ 100 mls/hr Q6HRS IV Last administered on 07/27/19at 06:26; Start 07/11/19 at 08:30; Stop 07/27/19 at 09:58; Status DC Micafungin Sodium 100 mg/Dextrose 100 ml @ 100 mls/hr Q24H IV Last administered on 08/18/19at 08:18; Start 07/11/19 at 09:00; Stop 08/18/19 at 20:58; Status DC Propofol 0 ml @ As Directed STK-MED ONCE IV ; Start 07/11/19 at 07:53; Stop 07/11/19 at 07:53; Status DC Etomidate (Amidate) 20 mg STK-MED ONCE IV ; Start 07/11/19 at 07:53; Stop 07/11/19 at 07:54; Status DC Midazolam HCl (Versed) 5 mg STK-MED ONCE .ROUTE ; Start 07/11/19 at 07:57; Stop 07/11/19 at 07:57; Status DC Fentanyl Citrate 30 ml @ 0 mls/hr CONT PRN IV SEE PROTOCOL Last administered on 08/05/19at 06:12; Start 07/11/19 at 08:15; Stop 08/05/19 at 09:19; Status DC Artificial Tears (Artificial Tears) 1 drop PRN Q1HR PRN OU DRY EYE, 1st choice; Start 07/11/19 at 08:15; Stop 08/17/19 at 05:31; Status DC Midazolam HCl 50 mg/Sodium Chloride 50 ml @ 0 mls/hr CONT PRN IV SEE PROTOCOL Last administered on 07/14/19at 22:39; Start 07/11/19 at 08:15; Stop 07/16/19 at 15:59; Status DC Etomidate (Amidate) 8 mg 1X ONCE IV Last administered on 07/11/19at 08:33; Start 07/11/19 at 08:30; Stop 07/11/19 at 08:31; Status DC Succinylcholine Chloride (Anectine) 120 mg 1X ONCE IV Last administered on 07/11/19at 08:34; Start 07/11/19 at 08:30; Stop 07/11/19 at 08:31; Status DC Midazolam HCl (Versed) 5 mg 1X ONCE IV ; Start 07/11/19 at 08:30; Stop 07/11/19 at 08:31; Status DC Potassium Chloride 15 meq/ Bicarbonate Dialysis Soln w/ out KCl 5,007.5 ml @ 1,000 mls/ hr Q5H1M IV Last administered on 07/12/19at 11:11; Start 07/11/19 at 12:00; Stop 07/12/19 at 11:15; Status DC Potassium Chloride 15 meq/ Bicarbonate Dialysis Soln w/ out KCl 5,007.5 ml @ 1,000 mls/ hr Q5H1M IV Last administered on 07/12/19at 11:12; Start 07/11/19 at 12:00; Stop 07/12/19 at 11:17; Status DC Potassium Chloride 15 meq/ Bicarbonate Dialysis Soln w/ out KCl 5,007.5 ml @ 1,000 mls/ hr Q5H1M IV Last administered on 07/12/19at 11:11; Start 07/11/19 at 12:00; Stop 07/12/19 at 11:19; Status DC Sodium Chloride 90 meq/Potassium Chloride 15 meq/ Potassium Phosphate 10 mmol/ Magnesium Sulfate 10 meq/Calcium Gluconate 20 meq/ Multivitamins 10 ml/Chromium/ Copper/Manganese/ Seleni/Zn 0.5 ml/ Total Parenteral Nutrition/Amino Acids/Dextrose/ Fat Emulsion Intravenous 1,400 ml @ 58.333 mls/ hr TPN CONT IV Last administered on 07/11/19at 21:42; Start 07/11/19 at 22:00; Stop 07/12/19 at 21:59; Status DC Heparin Sodium (Porcine) (Heparin Sodium) 5,000 unit Q8HRS SQ Last administered on 07/16/19at 05:55; Start 07/11/19 at 15:00; Stop 07/16/19 at 13:28; Status DC Meropenem 500 mg/ Sodium Chloride 50 ml @ 100 mls/hr Q6HRS IV Last administer ed on 07/13/19at 06:00; Start 07/12/19 at 09:00; Stop 07/13/19 at 07:29; Status DC Potassium Phosphate 20 mmol/ Sodium Chloride 106.6667 ml @ 51.667 m... 1X ONCE IV Last administered on 07/12/19at 11:22; Start 07/12/19 at 10:15; Stop 07/12/19 at 12:18; Status DC Acetaminophen (Tylenol Supp) 650 mg PRN Q6HRS PRN CO MILD PAIN / TEMP > 100.3'F Last administered on 09/28/19at 22:16; Start 07/12/19 at 10:30 Potassium Chloride/Water 100 ml @ 100 mls/hr Q1H IV Last administered on 07/12/19at 12:12; Start 07/12/19 at 11:00; Stop 07/12/19 at 12:59; Status DC Potassium Chloride 20 meq/ Bicarbonate Dialysis Soln w/ out KCl 5,010 ml @ 1,0 00 mls/hr Q5H1M IV Last administered on 07/13/19at 08:48; Start 07/12/19 at 12:00; Stop 07/13/19 at 13:03; Status DC Potassium Chloride 20 meq/ Bicarbonate Dialysis Soln w/ out KCl 5,010 ml @ 1,000 mls/hr Q5H1M IV Last administered on 07/17/19at 14:52; Start 07/12/19 at 11:30; Stop 07/17/19 at 19:59; Status DC Potassium Chloride 20 meq/ Bicarbonate Dialysis Soln w/ out KCl 5,010 ml @ 1,000 mls/hr Q5H1M IV Last administered on 07/17/19at 14:53; Start 07/12/19 at 11:30; Stop 07/17/19 at 19:59; Status DC Sodium Chloride 90 meq/Potassium Chloride 15 meq/ Potassium Phosphate 15 mmol/ Magnesium Sulfate 10 meq/Calcium Gluconate 15 meq/ Multivitamins 10 ml/Chromium/ Copper/Manganese/ Seleni/Zn 0.5 ml/ Total Parenteral Nutrition/Amino Acids/Dextrose/ Fat Emulsion Intravenous 1,400 ml @ 58.333 mls/ hr TPN CONT IV Last administered on 07/12/19at 22:17; Start 07/12/19 at 22:00; Stop 07/13/19 at 21:59; Status DC Cefepime HCl (Maxipime) 2 gm Q12HR IVP Last administered on 07/26/19at 20:56; Start 07/13/19 at 09:00; Stop 07/27/19 at 09:58; Status DC Daptomycin 500 mg/ Sodium Chloride 50 ml @ 100 mls/hr Q48H IV Last administered on 07/29/19at 09:57; Start 07/13/19 at 08:30; Stop 07/29/19 at 10:07; Status DC Lidocaine HCl (Buffered Lidocaine 1%) 3 ml 1X ONCE INJ Last administered on 07/13/19at 10:27; Start 07/13/19 at 10:30; Stop 07/13/19 at 10:31; Status DC Potassium Phosphate 20 mmol/ Sodium Chloride 106.6667 ml @ 51.667 m... 1X ONCE IV Last administered on 07/13/19at 12:51; Start 07/13/19 at 13:00; Stop 07/13/19 at 15:03; Status DC Sodium Chloride 90 meq/Potassium Chloride 15 meq/ Potassium Phosphate 18 mmol/ Magnesium Sulfate 8 meq/Calcium Gluconate 15 meq/ Multivitamins 10 ml/Chromium/ Copper/Manganese/ Seleni/Zn 0.5 ml/ Total Parenteral Nutrition/Amino Acids/D extrose/ Fat Emulsion Intravenous 1,400 ml @ 58.333 mls/ hr TPN CONT IV Last administered on 07/13/19at 22:16; Start 07/13/19 at 22:00; Stop 07/14/19 at 21:59; Status DC Potassium Chloride 20 meq/ Bicarbonate Dialysis Soln w/ out KCl 5,010 ml @ 1,000 mls/hr Q5H1M IV Last administered on 07/17/19at 14:54; Start 07/13/19 at 16:00; Stop 07/17/19 at 19:59; Status DC Multi-Ingred Cream/Lotion/Oil/ Oint (Artificial Tears Eye Ointment) 1 ramu PRN Q1HR PRN OU DRY EYE, 2nd choice Last administered on 08/01/19at 08:19; Start 07/13/19 at 17:30; Stop 09/21/19 at 14:39; Status DC Sodium Chloride 90 meq/Potassium Chloride 15 meq/ Potassium Phosphate 18 mmol/ Magnesium Sulfate 8 meq/Calcium Gluconate 15 meq/ Multivitamins 10 ml/Chromium/ Copper/Manganese/ Seleni/Zn 0.5 ml/ Total Parenteral Nutrition/Amino Acids/Dextrose/ Fat Emulsion Intravenous 1,400 ml @ 58.333 mls/ hr TPN CONT IV Last administered on 07/14/19at 22:00; Start 07/14/19 at 22:00; Stop 07/15/19 at 21:59; Status DC Albumin Human 500 ml @ 125 mls/hr 1X ONCE IV ; Start 07/14/19 at 14:15; Stop 07/14/19 at 18:14; Status DC Sodium Chloride 90 meq/Potassium Chloride 15 meq/ Potassium Phosphate 18 mmol/ Magnesium Sulfate 8 meq/Calcium Gluconate 15 meq/ Multivitamins 10 ml/Chromium/ Copper/Manganese/ Seleni/Zn 0.5 ml/ Insulin Human Regular 10 unit/ Total Parenteral Nutrition/Amino Acids/Dextrose/ Fat Emulsion Intravenous 1,400 ml @ 58.333 mls/ hr TPN CONT IV Last administered on 07/15/19at 21:43; Start 07/15/19 at 22:00; Stop 07/16/19 at 21:59; Status DC Lidocaine HCl (Buffered Lidocaine 1%) 3 ml STK-MED ONCE .ROUTE ; Start 07/13/19 at 10:00; Stop 07/15/19 at 13:57; Status DC Midazolam HCl 100 mg/Sodium Chloride 100 ml @ 7 mls/hr CONT PRN IV SEE PROTOCOL Last administered on 07/27/19at 15:35; Start 07/16/19 at 16:00; Stop 09/21/19 at 14:38; Status DC Sodium Chloride 90 meq/Potassium Chloride 15 meq/ Potassium Phosphate 18 mmol/ Magnesium Sulfate 8 meq/Calcium Gluconate 15 meq/ Multivitamins 10 ml/Chromium/ Copper/Manganese/ Seleni/Zn 0.5 ml/ Insulin Human Regular 15 unit/ Total Parenteral Nutrition/Amino Acids/Dextrose/ Fat Emulsion Intravenous 1,400 ml @ 58.333 mls/ hr TPN CONT IV Last administered on 07/16/19at 20:34; Start 07/16/19 at 22:00; Stop 07/17/19 at 21:59; Status DC Info (Icu Electrolyte Protocol) 1 ea CONT PRN PRN MC PER PROTOCOL; Start 07/17/19 at 13:15 Sodium Chloride 90 meq/Potassium Chloride 15 meq/ Potassium Phosphate 18 mmol/ Magnesium Sulfate 8 meq/Calcium Gluconate 15 meq/ Multivitamins 10 ml/Chromium/ Copper/Manganese/ Seleni/Zn 0.5 ml/ Insulin Human Regular 15 unit/ Total Parenteral Nutrition/Amino Acids/Dextrose/ Fat Emulsion Intravenous 1,400 ml @ 58.333 mls/ hr TPN CONT IV Last administered on 07/17/19at 22:05; Start 07/17/19 at 22:00; Stop 07/18/19 at 21:59; Status DC Potassium Chloride 15 meq/ Bicarbonate Dialysis Soln w/ out KCl 5,007.5 ml @ 1,000 mls/ hr Q5H1M IV Last administered on 07/20/19at 18:14; Start 07/17/19 at 20:00; Stop 07/21/19 at 13:08; Status DC Potassium Chloride 15 meq/ Bicarbonate Dialysis Soln w/ out KCl 5,007.5 ml @ 1,000 mls/ hr Q5H1M IV Last administered on 07/20/19at 18:14; Start 07/17/19 at 20:00; Stop 07/21/19 at 13:08; Status DC Potassium Chloride 15 meq/ Bicarbonate Dialysis Soln w/ out KCl 5,007.5 ml @ 1,000 mls/ hr Q5H1M IV Last administered on 07/20/19at 18:14; Start 07/17/19 at 20:00; Stop 07/21/19 at 13:08; Status DC Iohexol (Omnipaque 240 Mg/ml) 30 ml 1X ONCE PO Last administered on 07/18/19at 11:30; Start 07/18/19 at 11:30; Stop 07/18/19 at 11:33; Status DC Info (CONTRAST GIVEN -- Rx MONITORING) 1 each PRN DAILY PRN MC SEE COMMENTS; Start 07/18/19 at 11:45; Stop 07/20/19 at 11:44; Status DC Sodium Chloride 90 meq/Potassium Chloride 15 meq/ Potassium Phosphate 18 mmol/ Magnesium Sulfate 8 meq/Calcium Gluconate 15 meq/ Multivitamins 10 ml/Chromium/ Copper/Manganese/ Seleni/Zn 0.5 ml/ Insulin Human Regular 15 unit/ Total Parenteral Nutrition/Amino Acids/Dextrose/ Fat Emulsion Intravenous 1,400 ml @ 58.333 mls/ hr TPN CONT IV Last administered on 07/18/19at 21:47; Start 07/18/19 at 22:00; Stop 07/19/19 at 21:59; Status DC Sodium Chloride 90 meq/Potassium Chloride 15 meq/ Potassium Phosphate 18 mmol/ Magnesium Sulfate 8 meq/Calcium Gluconate 15 meq/ Multivitamins 10 ml/Chromium/ Copper/Manganese/ Seleni/Zn 0.5 ml/ Insulin Human Regular 20 unit/ Total Parenteral Nutrition/Amino Acids/Dextrose/ Fat Emulsion Intravenous 1,400 ml @ 58.333 mls/ hr TPN CONT IV Last administered on 07/19/19at 21:36; Start 07/19/19 at 22:00; Stop 07/20/19 at 21:59; Status DC Alteplase, Recombinant (Cathflo For Central Catheter Clearance) 1 mg 1X ONCE INT CAT Last administered on 07/19/19at 20:03; Start 07/19/19 at 19:30; Stop 07/19/19 at 19:46; Status DC Alteplase, Recombinant (Cathflo For Central Catheter Clearance) 1 mg 1X ONCE INT CAT Last administered on 07/19/19at 22:05; Start 07/19/19 at 22:00; Stop 07/19/19 at 22:01; Status DC Sodium Chloride 90 meq/Potassium Chloride 15 meq/ Potassium Phosphate 18 mmol/ Magnesium Sulfate 8 meq/Calcium Gluconate 15 meq/ Multivitamins 10 ml/Chromium/ Copper/Manganese/ Seleni/Zn 0.5 ml/ Insulin Human Regular 20 unit/ Total Parenteral Nutrition/Amino Acids/Dextrose/ Fat Emulsion Intravenous 1,400 ml @ 58.333 mls/ hr TPN CONT IV Last administered on 07/20/19at 21:30; Start 07/20/19 at 22:00; Stop 07/21/19 at 21:59; Status DC Dexmedetomidine HCl 400 mcg/ Sodium Chloride 100 ml @ 0 mls/hr CONT PRN IV ANXIETY / AGITATION Last administered on 09/17/19at 12:57; Start 07/21/19 at 08:15; Stop 09/17/19 at 18:31; Status DC Sodium Chloride 500 ml @ 500 mls/hr 1X PRN PRN IV ELEVATED BP, SEE COMMENTS; Start 07/21/19 at 08:15 Atropine Sulfate (ATROPINE 0.5mg SYRINGE) 0.5 mg PRN Q5MIN PRN IV SEE COMMENTS; Start 07/21/19 at 08:15 Furosemide (Lasix) 20 mg 1X ONCE IVP Last administered on 07/21/19at 08:19; Start 07/21/19 at 08:15; Stop 07/21/19 at 08:16; Status DC Lidocaine HCl (Buffered Lidocaine 1%) 3 ml STK-MED ONCE .ROUTE ; Start 07/21/19 at 08:39; Stop 07/21/19 at 08:39; Status DC Lidocaine HCl (Buffered Lidocaine 1%) 6 ml 1X ONCE INJ Last administered on 07/21/19at 09:05; Start 07/21/19 at 09:00; Stop 07/21/19 at 09:06; Status DC Sodium Chloride 90 meq/Potassium Chloride 15 meq/ Potassium Phosphate 18 mmol/ Magnesium Sulfate 8 meq/Calcium Gluconate 15 meq/ Multivitamins 10 ml/Chromium/ Copper/Manganese/ Seleni/Zn 0.5 ml/ Insulin Human Regular 20 unit/ Total Parenteral Nutrition/Amino Acids/Dextrose/ Fat Emulsion Intravenous 1,400 ml @ 58.333 mls/ hr TPN CONT IV Last administered on 07/21/19at 22:45; Start 07/21/19 at 22:00; Stop 07/22/19 at 21:59; Status DC Sodium Chloride 1,000 ml @ 1,000 mls/hr Q1H PRN IV hypotension; Start 07/22/19 at 07:30; Stop 07/22/19 at 13:29; Status DC Albumin Human 200 ml @ 200 mls/hr 1X PRN PRN IV Hypotension Last administered on 07/22/19at 09:36; Start 07/22/19 at 07:30; Stop 07/22/19 at 13:29; Status DC Sodium Chloride (Normal Saline Flush) 10 ml 1X PRN PRN IV AP catheter pack; Start 07/22/19 at 07:30; Stop 07/22/19 at 21:29; Status DC Sodium Chloride (Normal Saline Flush) 10 ml 1X PRN PRN IV NORMALIZER catheter pack; Start 07/22/19 at 07:30; Stop 07/23/19 at 07:29; Status DC Sodium Chloride 1,000 ml @ 400 mls/hr Q2H30M PRN IV PATENCY; Start 07/22/19 at 07:30; Stop 07/22/19 at 19:29; Status DC Info (PHARMACY MONITORING -- do not chart) 1 each PRN DAILY PRN MC SEE COMMENTS; Start 07/22/19 at 07:30; Stop 07/22/19 at 13:02; Status DC Info (PHARMACY MONITORING -- do not chart) 1 each PRN DAILY PRN MC SEE COMMENTS; Start 07/22/19 at 07:30; Stop 07/24/19 at 12:45; Status DC Sodium Chloride 90 meq/Potassium Chloride 15 meq/ Potassium Phosphate 10 mmol/ Magnesium Sulfate 8 meq/Calcium Gluconate 15 meq/ Multivitamins 10 ml/Chromium/ Copper/Manganese/ Seleni/Zn 0.5 ml/ Insulin Human Regular 25 unit/ Total Parenteral Nutrition/Amino Acids/Dextrose/ Fat Emulsion Intravenous 1,400 ml @ 58.333 mls/ hr TPN CONT IV Last administered on 07/22/19at 22:19; Start 07/22/19 at 22:00; Stop 07/23/19 at 21:59; Status DC Heparin Sodium (Porcine) (Heparin Sodium) 5,000 unit Q12HR SQ Last administered on 08/14/19at 08:59; Start 07/22/19 at 21:00; Stop 08/14/19 at 10:05; Status DC Ondansetron HCl (Zofran) 4 mg PRN Q6HRS PRN IV NAUSEA/VOMITING; Start 07/25/19 at 07:00; Stop 07/26/19 at 06:59; Status DC Fentanyl Citrate (Fentanyl 2ml Vial) 25 mcg PRN Q5MIN PRN IV MILD PAIN 1-3; Start 07/25/19 at 07:00; Stop 07/26/19 at 06:59; Status DC Fentanyl Citrate (Fentanyl 2ml Vial) 50 mcg PRN Q5MIN PRN IV MODERATE TO SEVERE PAIN; Start 07/25/19 at 07:00; Stop 07/26/19 at 06:59; Status DC Ringer's Solution 1,000 ml @ 30 mls/hr Q24H IV ; Start 07/25/19 at 07:00; Stop 07/25/19 at 18:59; Status DC Lidocaine HCl (Xylocaine-Mpf 1% 2ml Vial) 2 ml PRN 1X PRN ID PRIOR TO IV START; Start 07/25/19 at 07:00; Stop 07/26/19 at 06:59; Status DC Prochlorperazine Edisylate (Compazine) 5 mg PACU PRN PRN IV NAUSEA, MRX1; Start 07/25/19 at 07:00; Stop 07/26/19 at 06:59; Status DC Sodium Chloride 1,000 ml @ 1,000 mls/hr Q1H PRN IV hypotension; Start 07/23/19 at 09:10; Stop 07/23/19 at 15:09; Status DC Albumin Human 200 ml @ 200 mls/hr 1X PRN PRN IV Hypotension Last administered on 07/23/19at 10:10; Start 07/23/19 at 09:15; Stop 07/23/19 at 15:14; Status DC Sodium Chloride 1,000 ml @ 400 mls/hr Q2H30M PRN IV PATENCY; Start 07/23/19 at 09:10; Stop 07/23/19 at 21:09; Status DC Info (PHARMACY MONITORING -- do not chart) 1 each PRN DAILY PRN MC SEE COMMENTS; Start 07/23/19 at 09:15; Stop 07/24/19 at 12:45; Status DC Info (PHARMACY MONITORING -- do not chart) 1 each PRN DAILY PRN MC SEE COMMENTS; Start 07/23/19 at 09:15; Stop 07/24/19 at 12:45; Status DC Sodium Chloride 90 meq/Potassium Chloride 15 meq/ Potassium Phosphate 10 mmol/ Magnesium Sulfate 8 meq/Calcium Gluconate 15 meq/ Multivitamins 10 ml/Chromium/ Copper/Manganese/ Seleni/Zn 0.5 ml/ Insulin Human Regular 25 unit/ Total Pare nteral Nutrition/Amino Acids/Dextrose/ Fat Emulsion Intravenous 1,400 ml @ 58.333 mls/ hr TPN CONT IV Last administered on 07/23/19at 22:10; Start 07/23/19 at 22:00; Stop 07/24/19 at 21:59; Status DC Magnesium Sulfate 50 ml @ 25 mls/hr PRN DAILY PRN IV for Mag < 1.7 on am labs Last administered on 10/04/19at 08:21; Start 07/24/19 at 09:15 Sodium Chloride 90 meq/Potassium Chloride 15 meq/ Potassium Phosphate 10 mmol/ Magnesium Sulfate 8 meq/Calcium Gluconate 15 meq/ Multivitamins 10 ml/Chromium/ Copper/Manganese/ Seleni/Zn 0.5 ml/ Insulin Human Regular 25 unit/ Total Parenteral Nutrition/Amino Acids/Dextrose/ Fat Emulsion Intravenous 1,400 ml @ 58.333 mls/ hr TPN CONT IV Last administered on 07/24/19at 21:20; Start 07/24/19 at 22:00; Stop 07/25/19 at 21:59; Status DC Sodium Chloride 1,000 ml @ 1,000 mls/hr Q1H PRN IV hypotension; Start 07/24/19 at 12:23; Stop 07/24/19 at 18:22; Status DC Albumin Human 200 ml @ 200 mls/hr 1X ONCE IV Last administered on 07/24/19at 13:34; Start 07/24/19 at 12:30; Stop 07/24/19 at 13:29; Status DC Diphenhydramine HCl (Benadryl) 25 mg 1X PRN PRN IV ITCHING; Start 07/24/19 at 12:30; Stop 07/25/19 at 12:29; Status DC Diphenhydramine HCl (Benadryl) 25 mg 1X PRN PRN IV ITCHING; Start 07/24/19 at 12:30; Stop 07/25/19 at 12:29; Status DC Info (PHARMACY MONITORING -- do not chart) 1 each PRN DAILY PRN MC SEE COMMENTS; Start 07/24/19 at 12:30; Status Cancel Bupivacaine HCl/ Epinephrine Bitart (Sensorcain-Epi 0.5%-1:[id number] Mpf) 30 ml STK-MED ONCE .ROUTE Last administered on 07/25/19at 11:44; Start 07/25/19 at 11:00; Stop 07/25/19 at 11:01; Status DC Cellulose (Surgicel Fibrillar 1x2) 1 each STK-MED ONCE .ROUTE ; Start 07/25/19 at 11:00; Stop 07/25/19 at 11:01; Status DC Sodium Chloride 90 meq/Potassium Chloride 15 meq/ Potassium Phosphate 10 mmol/ Magnesium Sulfate 12 meq/Calcium Gluconate 15 meq/ Multivitamins 10 ml/Chromium/ Copper/Manganese/ Seleni/Zn 0.5 ml/ Insulin Human Regular 25 unit/ Total Parenteral Nutrition/Amino Acids/Dextrose/ Fat Emulsion Intravenous 1,400 ml @ 58.333 mls/ hr TPN CONT IV Last administered on 07/25/19at 22:24; Start 07/25/19 at 22:00; Stop 07/26/19 at 21:59; Status DC Propofol 20 ml @ As Directed STK-MED ONCE IV ; Start 07/25/19 at 11:07; Stop 07/25/19 at 11:07; Status DC Cellulose (Surgicel Hemostat 4x8) 1 each STK-MED ONCE .ROUTE Last administered on 07/25/19at 11:44; Start 07/25/19 at 11:55; Stop 07/25/19 at 11:56; Status DC Sevoflurane (Ultane) 60 ml STK-MED ONCE IH ; Start 07/25/19 at 12:46; Stop 07/25/19 at 12:46; Status DC Sodium Chloride 1,000 ml @ 1,000 mls/hr Q1H PRN IV hypotension; Start 07/25/19 at 13:51; Stop 07/25/19 at 19:50; Status DC Albumin Human 200 ml @ 200 mls/hr 1X PRN PRN IV Hypotension Last administered on 07/25/19at 14:51; Start 07/25/19 at 14:00; Stop 07/25/19 at 19:59; Status DC Diphenhydramine HCl (Benadryl) 25 mg 1X PRN PRN IV ITCHING; Start 07/25/19 at 14:00; Stop 07/26/19 at 13:59; Status DC Diphenhydramine HCl (Benadryl) 25 mg 1X PRN PRN IV ITCHING; Start 07/25/19 at 14:00; Stop 07/26/19 at 13:59; Status DC Sodium Chloride 1,000 ml @ 400 mls/hr Q2H30M PRN IV PATENCY; Start 07/25/19 at 13:51; Stop 07/26/19 at 01:50; Status DC Info (PHARMACY MONITORING -- do not chart) 1 each PRN DAILY PRN MC SEE COMMENTS; Start 07/25/19 at 14:00; Stop 07/28/19 at 08:16; Status DC Heparin Sodium (Porcine) (Hep Lock Adult) 500 unit STK-MED ONCE IVP ; Start 07/26/19 at 09:29; Stop 07/26/19 at 09:30; Status DC Sodium Chloride 1,000 ml @ 1,000 mls/hr Q1H PRN IV hypotension; Start 07/26/19 at 10:43; Stop 07/26/19 at 16:42; Status DC Sodium Chloride 1,000 ml @ 400 mls/hr Q2H30M PRN IV PATENCY; Start 07/26/19 at 10:43; Stop 07/26/19 at 22:42; Status DC Info (PHARMACY MONITORING -- do not chart) 1 each PRN DAILY PRN MC SEE COMMENTS; Start 07/26/19 at 10:45; Status UNV Info (PHARMACY MONITORING -- do not chart) 1 each PRN DAILY PRN MC SEE COMMENTS; Start 07/26/19 at 10:45; Status UNV Sodium Chloride 90 meq/Potassium Chloride 15 meq/ Magnesium Sulfate 12 meq/Calcium Gluconate 15 meq/ Multivitamins 10 ml/Chromium/ Copper/Manganese/ Seleni/Zn 0.5 ml/ Insulin Human Regular 25 unit/ Total Parenteral Nutrition/Amino Acids/Dextrose/ Fat Emulsion Intravenous 1,400 ml @ 58.333 mls/ hr TPN CONT IV Last administered on 07/26/19at 22:13; Start 07/26/19 at 22:00; Stop 07/27/19 at 21:59; Status DC Sodium Chloride 1,000 ml @ 1,000 mls/hr Q1H PRN IV hypotension; Start 07/27/19 at 07:50; Stop 07/27/19 at 13:49; Status DC Albumin Human 200 ml @ 200 mls/hr 1X ONCE IV ; Start 07/27/19 at 08:00; Stop 07/27/19 at 08:53; Status DC Diphenhydramine HCl (Benadryl) 25 mg 1X PRN PRN IV ITCHING; Start 07/27/19 at 08:00; Stop 07/28/19 at 07:59; Status DC Diphenhydramine HCl (Benadryl) 25 mg 1X PRN PRN IV ITCHING; Start 07/27/19 at 08:00; Stop 07/28/19 at 07:59; Status DC Info (PHARMACY MONITORING -- do not chart) 1 each PRN DAILY PRN MC SEE COMMENTS; Start 07/27/19 at 08:00; Stop 07/28/19 at 08:16; Status DC Albumin Human 50 ml @ 50 mls/hr 1X ONCE IV ; Start 07/27/19 at 08:53; Stop 07/27/19 at 08:56; Status DC Albumin Human 200 ml @ 50 mls/hr PRN 1X PRN IV HYPOTENSION Last administered on 08/02/19at 11:54; Start 07/27/19 at 09:00; Stop 09/08/19 at 11:14; Status DC Meropenem 500 mg/ Sodium Chloride 50 ml @ 100 mls/hr Q12H IV Last administered on 08/16/19at 10:45; Start 07/27/19 at 10:00; Stop 08/16/19 at 12:37; Status DC Sodium Chloride 90 meq/Magnesium Sulfate 12 meq/ Calcium Gluconate 15 meq/ Multivitamins 10 ml/Chromium/ Copper/Manganese/ Seleni/Zn 0.5 ml/ Insulin Human Regular 25 unit/ Total Parenteral Nutrition/Amino Acids/Dextrose/ Fat Emulsion Intravenous 1,400 ml @ 58.333 mls/ hr TPN CONT IV Last administered on 07/27/19at 21:41; Start 07/27/19 at 22:00; Stop 07/28/19 at 21:59; Status DC Sodium Chloride 1,000 ml @ 1,000 mls/hr Q1H PRN IV hypotension; Start 07/28/19 at 07:58; Stop 07/28/19 at 13:57; Status DC Albumin Human 200 ml @ 200 mls/hr 1X PRN PRN IV Hypotension Last administered on 07/28/19at 09:30; Start 07/28/19 at 08:00; Stop 07/28/19 at 13:59; Status DC Sodium Chloride 1,000 ml @ 400 mls/hr Q2H30M PRN IV PATENCY; Start 07/28/19 at 07:58; Stop 07/28/19 at 19:57; Status DC Info (PHARMACY MONITORING -- do not chart) 1 each PRN DAILY PRN MC SEE COMMENTS; Start 07/28/19 at 08:00; Status Cancel Info (PHARMACY MONITORING -- do not chart) 1 each PRN DAILY PRN MC SEE COMMENTS; Start 07/28/19 at 08:15; Status UNV Sodium Chloride 90 meq/Potassium Phosphate 5 mmol/ Magnesium Sulfate 12 meq/Calcium Gluconate 15 meq/ Multivitamins 10 ml/Chromium/ Copper/Manganese/ Seleni/Zn 0.5 ml/ Insulin Human Regular 30 unit/ Total Parenteral Nutrition/Amino Acids/Dextrose/ Fat Emulsion Intravenous 1,400 ml @ 58.333 mls/ hr TPN CONT IV Last administered on 07/28/19at 22:08; Start 07/28/19 at 22:00; Stop 07/29/19 at 21:59; Status DC Linezolid/Dextrose 300 ml @ 300 mls/hr Q12HR IV Last administered on 08/08/19at 20:40; Start 07/29/19 at 11:00; Stop 08/09/19 at 08:10; Status DC Sodium Chloride 90 meq/Potassium Phosphate 15 mmol/ Magnesium Sulfate 12 meq/Calcium Gluconate 15 meq/ Multivitamins 10 ml/Chromium/ Copper/Manganese/ Seleni/Zn 0.5 ml/ Insulin Human Regular 30 unit/ Total Parenteral Nutrition/Amino Acids/Dextrose/ Fat Emulsion Intravenous 1,400 ml @ 58.333 mls/ hr TPN CONT IV Last administered on 07/29/19at 21:49; Start 07/29/19 at 22:00; Stop 07/30/19 at 21:59; Status DC Sodium Chloride 90 meq/Potassium Phosphate 15 mmol/ Magnesium Sulfate 12 meq/Calcium Gluconate 15 meq/ Multivitamins 10 ml/Chromium/ Copper/Manganese/ Seleni/Zn 0.5 ml/ Insulin Human Regular 40 unit/ Total Parenteral Nu trition/Amino Acids/Dextrose/ Fat Emulsion Intravenous 1,400 ml @ 58.333 mls/ hr TPN CONT IV Last administered on 07/30/19at 21:21; Start 07/30/19 at 22:00; Stop 07/31/19 at 21:59; Status DC Sodium Chloride 1,000 ml @ 1,000 mls/hr Q1H PRN IV hypotension; Start 07/30/19 at 13:26; Stop 07/30/19 at 19:25; Status DC Albumin Human 200 ml @ 200 mls/hr 1X PRN PRN IV Hypotension Last administered on 07/30/19at 15:00; Start 07/30/19 at 13:30; Stop 07/30/19 at 19:29; Status DC Sodium Chloride (Normal Saline Flush) 10 ml 1X PRN PRN IV AP catheter pack; Start 07/30/19 at 13:30; Stop 07/31/19 at 13:29; Status DC Sodium Chloride (Normal Saline Flush) 10 ml 1X PRN PRN IV NORMALIZER catheter pack; Start 07/30/19 at 13:30; Stop 07/31/19 at 13:29; Status DC Sodium Chloride 1,000 ml @ 400 mls/hr Q2H30M PRN IV PATENCY; Start 07/30/19 at 13:26; Stop 07/31/19 at 01:25; Status DC Info (PHARMACY MONITORING -- do not chart) 1 each PRN DAILY PRN MC SEE COMMENTS; Start 07/30/19 at 13:30; Stop 07/30/19 at 13:33; Status DC Info (PHARMACY MONITORING -- do not chart) 1 each PRN DAILY PRN MC SEE COMMENTS; Start 07/30/19 at 13:30; Stop 07/30/19 at 13:34; Status DC Sodium Chloride 90 meq/Potassium Phosphate 19 mmol/ Magnesium Sulfate 12 meq/Calcium Gluconate 15 meq/ Multivitamins 10 ml/Chromium/ Copper/Manganese/ Seleni/Zn 0.5 ml/ Insulin Human Regular 40 unit/ Total Parenteral Nutrition/Amino Acids/Dextrose/ Fat Emulsion Intravenous 1,400 ml @ 58.333 mls/ hr TPN CONT IV Last administered on 07/31/19at 21:54; Start 07/31/19 at 22:00; Stop 08/01/19 at 21:59; Status DC Sodium Chloride 1,000 ml @ 1,000 mls/hr Q1H PRN IV hypotension; Start 08/01/19 at 09:35; Stop 08/01/19 at 15:34; Status DC Albumin Human 200 ml @ 200 mls/hr 1X PRN PRN IV Hypotension; Start 08/01/19 at 09:45; Stop 08/01/19 at 15:44; Status DC Diphenhydramine HCl (Benadryl) 25 mg 1X PRN PRN IV ITCHING; Start 08/01/19 at 09:45; Stop 08/02/19 at 09:44; Status DC Diphenhydramine HCl (Benadryl) 25 mg 1X PRN PRN IV ITCHING; Start 08/01/19 at 09:45; Stop 08/02/19 at 09:44; Status DC Sodium Chloride 1,000 ml @ 400 mls/hr Q2H30M PRN IV PATENCY; Start 08/01/19 at 09:35; Stop 08/01/19 at 21:34; Status DC Info (PHARMACY MONITORING -- do not chart) 1 each PRN DAILY PRN MC SEE COMMENTS; Start 08/01/19 at 09:45; Status Cancel Sodium Chloride 100 meq/Potassium Phosphate 19 mmol/ Magnesium Sulfate 12 meq/Calcium Gluconate 15 meq/ Multivitamins 10 ml/Chromium/ Copper/Manganese/ Seleni/Zn 0.5 ml/ Insulin Human Regular 40 unit/ Potassium Chloride 20 meq/ Total Parenteral Nutrition/Amino Acids/Dextrose/ Fat Emulsion Intravenous 1,400 ml @ 58.333 mls/ hr TPN CONT IV Last administered on 08/01/19at 22:02; Start 08/01/19 at 22:00; Stop 08/02/19 at 21:59; Status DC Furosemide (Lasix) 40 mg 1X ONCE IVP Last administered on 08/01/19at 14:39; Start 08/01/19 at 14:30; Stop 08/01/19 at 14:31; Status DC Metronidazole 100 ml @ 100 mls/hr Q8HRS IV Last administered on 08/09/19at 06:04; Start 08/02/19 at 10:00; Stop 08/09/19 at 08:10; Status DC Sodium Chloride 1,000 ml @ 1,000 mls/hr Q1H PRN IV hypotension; Start 08/02/19 at 08:00; Stop 08/02/19 at 13:59; Status DC Albumin Human 200 ml @ 200 mls/hr 1X PRN PRN IV Hypotension; Start 08/02/19 at 08:00; Stop 08/02/19 at 13:59; Status DC Sodium Chloride 1,000 ml @ 400 mls/hr Q2H30M PRN IV PATENCY; Start 08/02/19 at 08:00; Stop 08/02/19 at 19:59; Status DC Info (PHARMACY MONITORING -- do not chart) 1 each PRN DAILY PRN MC SEE COMMENTS; Start 08/02/19 at 11:30; Status UNV Info (PHARMACY MONITORING -- do not chart) 1 each PRN DAILY PRN MC SEE COMMENTS; Start 08/02/19 at 11:30; Stop 08/04/19 at 12:13; Status DC Sodium Chloride 100 meq/Potassium Phosphate 19 mmol/ Magnesium Sulfate 12 meq/Calcium Gluconate 15 meq/ Multivitamins 10 ml/Chromium/ Copper/Manganese/ Seleni/Zn 0.5 ml/ Insulin Human Regular 40 unit/ Potassium Chloride 20 meq/ Total Parenteral Nutrition/Amino Acids/Dextrose/ Fat Emulsion Intravenous 1,400 ml @ 58.333 mls/ hr TPN CONT IV Last administered on 08/02/19at 21:52; Start 08/02/19 at 22:00; Stop 08/03/19 at 21:59; Status DC Sodium Chloride (Normal Saline Flush) 10 ml QSHIFT PRN IV AFTER MEDS AND BLOOD DRAWS; Start 08/02/19 at 15:00; Stop 08/30/19 at 11:27; Status DC Sodium Chloride (Normal Saline Flush) 10 ml PRN Q5MIN PRN IV AFTER MEDS AND BLOOD DRAWS; Start 08/02/19 at 15:00 Sodium Chloride (Normal Saline Flush) 20 ml PRN Q5MIN PRN IV AFTER MEDS AND BLOOD DRAWS; Start 08/02/19 at 15:00 Sodium Chloride 100 meq/Potassium Phosphate 19 mmol/ Magnesium Sulfate 12 meq/Calcium Gluconate 15 meq/ Multivitamins 10 ml/Chromium/ Copper/Manganese/ Seleni/Zn 0.5 ml/ Insulin Human Regular 40 unit/ Potassium Chloride 20 meq/ Total Parenteral Nutrition/Amino Acids/Dextrose/ Fat Emulsion Intravenous 1,400 ml @ 58.333 mls/ hr TPN CONT IV Last administered on 08/03/19at 21:20; Start 08/03/19 at 22:00; Stop 08/04/19 at 21:59; Status DC Lidocaine HCl (Buffered Lidocaine 1%) 3 ml STK-MED ONCE .ROUTE ; Start 08/03/19 at 13:16; Stop 08/03/19 at 13:16; Status DC Lidocaine HCl (Buffered Lidocaine 1%) 6 ml 1X ONCE INJ Last administered on at 13:45; Start 08/03/19 at 13:30; Stop 08/03/19 at 13:31; Status DC Albumin Human 100 ml @ 100 mls/hr 1X ONCE IV Last administered on 08/03/19at 15:41; Start 08/03/19 at 15:00; Stop 08/03/19 at 15:59; Status DC Albumin Human 50 ml @ 50 mls/hr 1X ONCE IV Last administered on 08/03/19at 15:00; Start 08/03/19 at 15:00; Stop 08/03/19 at 15:59; Status DC Info (PHARMACY MONITORING -- do not chart) 1 each PRN DAILY PRN MC SEE COMMENTS; Start 08/04/19 at 11:30; Status Cancel Info (PHARMACY MONITORING -- do not chart) 1 each PRN DAILY PRN MC SEE COMMENTS; Start 08/04/19 at 11:30; Status UNV Sodium Chloride 100 meq/Potassium Phosphate 10 mmol/ Magnesium Sulfate 12 meq/Calcium Gluconate 15 meq/ Multivitamins 10 ml/Chromium/ Copper/Manganese/ Seleni/Zn 0.5 ml/ Insulin Human Regular 35 unit/ Potassium Chloride 20 meq/ Total Parenteral Nutrition/Amino Acids/Dextrose/ Fat Emulsion Intravenous 1,400 ml @ 58.333 mls/ hr TPN CONT IV Last administered on 08/04/19at 22:10; Start 08/04/19 at 22:00; Stop 08/05/19 at 21:59; Status DC Sodium Chloride 100 meq/Potassium Phosphate 5 mmol/ Magnesium Sulfate 12 meq/Calcium Gluconate 15 meq/ Multivitamins 10 ml/Chromium/ Copper/Manganese/ Seleni/Zn 0.5 ml/ Insulin Human Regular 35 unit/ Potassium Chloride 20 meq/ Total Parenteral Nutrition/Amino Acids/Dextrose/ Fat Emulsion Intravenous 1,400 ml @ 58.333 mls/ hr TPN CONT IV Last administered on 08/05/19at 22:59; Start 08/05/19 at 22:00; Stop 08/06/19 at 21:59; Status DC Sodium Chloride 1,000 ml @ 1,000 mls/hr Q1H PRN IV hypotension; Start 08/06/19 at 08:27; Stop 08/06/19 at 14:26; Status DC Albumin Human 200 ml @ 200 mls/hr 1X PRN PRN IV Hypotension Last administered on 08/06/19at 09:18; Start 08/06/19 at 08:30; Stop 08/06/19 at 14:29; Status DC Sodium Chloride 1,000 ml @ 400 mls/hr Q2H30M PRN IV PATENCY; Start 08/06/19 at 08:27; Stop 08/06/19 at 20:26; Status DC Info (PHARMACY MONITORING -- do not chart) 1 each PRN DAILY PRN MC SEE COMMENTS; Start 08/06/19 at 08:30; Status Cancel Info (PHARMACY MONITORING -- do not chart) 1 each PRN DAILY PRN MC SEE COMMENTS; Start 08/06/19 at 08:30; Stop 08/14/19 at 13:10; Status DC Sodium Chloride 100 meq/Potassium Chloride 40 meq/ Magnesium Sulfate 15 meq/Calcium Gluconate 15 meq/ Multivitamins 10 ml/Chromium/ Copper/Manganese/ Seleni/Zn 0.5 ml/ Insulin Human Regular 35 unit/ Total Parenteral Nutrition/Amino Acids/Dextrose/ Fat Emulsion Intravenous 1,400 ml @ 58.333 mls/ hr TPN CONT IV Last administered on 08/06/19at 22:00; Start 08/06/19 at 22:00; Stop 08/07/19 at 21:59; Status DC Potassium Chloride/Water 100 ml @ 100 mls/hr 1X ONCE IV Last administered on 08/06/19at 17:28; Start 08/06/19 at 14:45; Stop 08/06/19 at 15:44; Status DC Sodium Chloride 100 meq/Potassium Chloride 40 meq/ Magnesium Sulfate 15 meq/Calcium Gluconate 15 meq/ Multivitamins 10 ml/Chromium/ Copper/Manganese/ Seleni/Zn 0.5 ml/ Insulin Human Regular 35 unit/ Total Parenteral Nu trition/Amino Acids/Dextrose/ Fat Emulsion Intravenous 1,400 ml @ 58.333 mls/ hr TPN CONT IV Last administered on 08/07/19at 22:46; Start 08/07/19 at 22:00; Stop 08/08/19 at 21:59; Status DC Sodium Chloride 100 meq/Potassium Chloride 40 meq/ Magnesium Sulfate 20 meq/Calcium Gluconate 15 meq/ Multivitamins 10 ml/Chromium/ Copper/Manganese/ Seleni/Zn 0.5 ml/ Insulin Human Regular 35 unit/ Total Parenteral Nutrition/Amino Acids/Dextrose/ Fat Emulsion Intravenous 1,400 ml @ 58.333 mls/ hr TPN CONT IV Last administered on 08/08/19at 22:31; Start 08/08/19 at 22:00; Stop 08/09/19 at 21:59; Status DC Fentanyl Citrate (Fentanyl 2ml Vial) 50 mcg PRN Q2HR PRN IVP PAIN Last administered on 08/15/19at 13:32; Start 08/08/19 at 21:00; Stop 08/16/19 at 12:53; Status DC Fentanyl Citrate (Fentanyl 2ml Vial) 25 mcg PRN Q2HR PRN IVP PAIN; Start 08/08/19 at 21:00; Stop 08/16/19 at 12:54; Status DC Enoxaparin Sodium (Lovenox 100mg Syringe) 100 mg Q12HR SQ ; Start 08/09/19 at 21:00; Status UNV Amino Acids/ Glycerin/ Electrolytes 1,000 ml @ 75 mls/hr [id number] IV ; Start 08/08/19 at 21:15; Status UNV Sodium Chloride 1,000 ml @ 1,000 mls/hr Q1H PRN IV hypotension; Start 08/09/19 at 07:56; Stop 08/09/19 at 13:55; Status DC Albumin Human 200 ml @ 200 mls/hr 1X PRN PRN IV Hypotension Last administered on 08/09/19at 08:40; Start 08/09/19 at 08:00; Stop 08/09/19 at 13:59; Status DC Sodium Chloride 1,000 ml @ 400 mls/hr Q2H30M PRN IV PATENCY; Start 08/09/19 at 07:56; Stop 08/09/19 at 19:55; Status DC Info (PHARMACY MONITORING -- do not chart) 1 each PRN DAILY PRN MC SEE COMMENTS; Start 08/09/19 at 08:00; Status UNV Info (PHARMACY MONITORING -- do not chart) 1 each PRN DAILY PRN MC SEE COMMENTS; Start 08/09/19 at 08:00; Status UNV Daptomycin 430 mg/ Sodium Chloride 50 ml @ 100 mls/hr Q24H IV Last administered on 08/09/19at 12:35; Start 08/09/19 at 09:00; Stop 08/09/19 at 12:49; Status DC Sodium Chloride 100 meq/Potassium Chloride 40 meq/ Magnesium Sulfate 20 meq/Calcium Gluconate 15 meq/ Multivitamins 10 ml/Chromium/ Copper/Manganese/ Seleni/Zn 0.5 ml/ Insulin Human Regular 35 unit/ Total Parenteral Nutrition/Amino Acids/Dextrose/ Fat Emulsion Intravenous 1,400 ml @ 58.333 mls/ hr TPN CONT IV Last administered on 08/09/19at 21:26; Start 08/09/19 at 22:00; Stop 08/10/19 at 21:59; Status DC Daptomycin 430 mg/ Sodium Chloride 50 ml @ 100 mls/hr Q48H IV ; Start 08/11/19 at 09:00; Stop 08/10/19 at 11:55; Status DC Sodium Chloride 100 meq/Potassium Chloride 40 meq/ Magnesium Sulfate 20 meq/Calcium Gluconate 15 meq/ Multivitamins 10 ml/Chromium/ Copper/Manganese/ Seleni/Zn 0.5 ml/ Insulin Human Regular 35 unit/ Total Parenteral Nutrition/Amino Acids/Dextrose/ Fat Emulsion Intravenous 1,400 ml @ 58.333 mls/ hr TPN CONT IV Last administered on 08/10/19at 22:27; Start 08/10/19 at 22:00; Stop 08/11/19 at 21:59; Status DC Daptomycin 430 mg/ Sodium Chloride 50 ml @ 100 mls/hr Q24H IV Last administered on 08/12/19at 15:07; Start 08/10/19 at 13:00; Stop 08/13/19 at 13:15; Status DC Sodium Chloride 100 meq/Potassium Chloride 40 meq/ Magnesium Sulfate 20 meq/Calcium Gluconate 10 meq/ Multivitamins 10 ml/Chromium/ Copper/Manganese/ Seleni/Zn 0.5 ml/ Insulin Human Regular 35 unit/ Total Parenteral Nutrition/Amino Acids/Dextrose/ Fat Emulsion Intravenous 1,400 ml @ 58.333 mls/ hr TPN CONT IV Last administered on 08/12/19at 00:06; Start 08/11/19 at 22:00; Stop 08/12/19 at 21:59; Status DC Alteplase, Recombinant (Cathflo For Central Catheter Clearance) 1 mg 1X ONCE INT CAT Last administered on 08/12/19at 11:44; Start 08/12/19 at 10:45; Stop 08/12/19 at 10:46; Status DC Ondansetron HCl (Zofran) 4 mg PRN Q6HRS PRN IV NAUSEA/VOMITING; Start 08/15/19 at 07:00; Stop 08/16/19 at 06:59; Status DC Fentanyl Citrate (Fentanyl 2ml Vial) 25 mcg PRN Q5MIN PRN IV MILD PAIN 1-3; Start 08/15/19 at 07:00; Stop 08/16/19 at 06:59; Status DC Fentanyl Citrate (Fentanyl 2ml Vial) 50 mcg PRN Q5MIN PRN IV MODERATE TO SEVERE PAIN Last administered on 08/15/19at 10:17; Start 08/15/19 at 07:00; Stop 08/16/19 at 06:59; Status DC Ringer's Solution 1,000 ml @ 30 mls/hr Q24H IV ; Start 08/15/19 at 07:00; Stop 08/15/19 at 18:59; Status DC Lidocaine HCl (Xylocaine-Mpf 1% 2ml Vial) 2 ml PRN 1X PRN ID PRIOR TO IV START; Start 08/15/19 at 07:00; Stop 08/16/19 at 06:59; Status DC Prochlorperazine Edisylate (Compazine) 5 mg PACU PRN PRN IV NAUSEA, MRX1; Start 08/15/19 at 07:00; Stop 08/16/19 at 06:59; Status DC Sodium Acetate 50 meq/Potassium Acetate 55 meq/ Magnesium Sulfate 20 meq/Calcium Gluconate 10 meq/ Multivitamins 10 ml/Chromium/ Copper/Manganese/ Seleni/Zn 0.5 ml/ Insulin Human Regular 35 unit/ Total Parenteral Nutrition/Amino Acids/Dextrose/ Fat Emulsion Intravenous 1,400 ml @ 58.333 mls/ hr TPN CONT IV ; Start 08/12/19 at 22:00; Stop 08/12/19 at 14:15; Status DC Sodium Acetate 50 meq/Potassium Acetate 55 meq/ Magnesium Sulfate 20 meq/Calcium Gluconate 10 meq/ Multivitamins 10 ml/Chromium/ Copper/Manganese/ Seleni/Zn 0.5 ml/ Insulin Human Regular 35 unit/ Total Parenteral Nutrition/Amino Acids/Dextrose/ Fat Emulsion Intravenous 1,800 ml @ 75 mls/hr TPN CONT IV Last administered on 08/12/19at 22:38; Start 08/12/19 at 22:00; Stop 08/13/19 at 21:59; Status DC Sodium Chloride 1,000 ml @ 1,000 mls/hr Q1H PRN IV hypotension; Start 08/12/19 at 15:31; Stop 08/12/19 at 21:30; Status DC Diphenhydramine HCl (Benadryl) 25 mg 1X PRN PRN IV ITCHING; Start 08/12/19 at 15:45; Stop 08/13/19 at 15:44; Status DC Diphenhydramine HCl (Benadryl) 25 mg 1X PRN PRN IV ITCHING; Start 08/12/19 at 15:45; Stop 08/13/19 at 15:44; Status DC Sodium Chloride 1,000 ml @ 400 mls/hr Q2H30M PRN IV PATENCY; Start 08/12/19 at 15:31; Stop 08/13/19 at 03:30; Status DC Info (PHARMACY MONITORING -- do not chart) 1 each PRN DAILY PRN MC SEE COMMENTS; Start 08/12/19 at 15:45; Stop 09/13/19 at 14:14; Status DC Sodium Acetate 50 meq/Potassium Acetate 55 meq/ Magnesium Sulfate 20 meq/Calcium Gluconate 10 meq/ Multivitamins 10 ml/Chromium/ Copper/Manganese/ Seleni/Zn 0.5 ml/ Insulin Human Regular 35 unit/ Total Parenteral Nutrition/Amino Acids/Dextrose/ Fat Emulsion Intravenous 1,800 ml @ 75 mls/hr TPN CONT IV Last administered on 08/13/19at 22:03; Start 08/13/19 at 22:00; Stop 08/14/19 at 21:59; Status DC Daptomycin 430 mg/ Sodium Chloride 50 ml @ 100 mls/hr Q24H IV Last administered on 08/18/19at 13:00; Start 08/13/19 at 13:00; Stop 08/18/19 at 20:58; Status DC Heparin Sodium (Porcine) 1000 unit/Sodium Chloride 1,001 ml @ 1,001 mls/hr 1X ONCE IRR ; Start 08/15/19 at 06:00; Stop 08/15/19 at 06:59; Status DC Potassium Acetate 55 meq/Magnesium Sulfate 20 meq/ Calcium Gluconate 10 meq/ Multivitamins 10 ml/Chromium/ Copper/Manganese/ Seleni/Zn 0.5 ml/ Insulin Human Regular 35 unit/ Total Parenteral Nutrition/Amino Acids/Dextrose/ Fat Emulsion Intravenous 1,920 ml @ 80 mls/hr TPN CONT IV Last administered on 08/14/19at 22:10; Start 08/14/19 at 22:00; Stop 08/15/19 at 21:59; Status DC Dexamethasone Sodium Phosphate (Decadron) 4 mg STK-MED ONCE .ROUTE ; Start 08/15/19 at 10:56; Stop 08/15/19 at 10:57; Status DC Ondansetron HCl (Zofran) 4 mg STK-MED ONCE .ROUTE ; Start 08/15/19 at 10:56; Stop 08/15/19 at 10:57; Status DC Rocuronium Misenheimer (Zemuron) 50 mg STK-MED ONCE .ROUTE ; Start 08/15/19 at 10:56; Stop 08/15/19 at 10:57; Status DC Fentanyl Citrate (Fentanyl 2ml Vial) 100 mcg STK-MED ONCE .ROUTE ; Start 08/15/19 at 10:56; Stop 08/15/19 at 10:57; Status DC Bupivacaine HCl/ Epinephrine Bitart (Sensorcain-Epi 0.5%-1:[id number] Mpf) 30 ml STK-MED ONCE .ROUTE Last administered on 08/15/19at 12:01; Start 08/15/19 at 10:58; Stop 08/15/19 at 10:58; Status DC Cellulose (Surgicel Hemostat 2x14) 1 each STK-MED ONCE .ROUTE ; Start 08/15/19 at 10:58; Stop 08/15/19 at 10:59; Status DC Iohexol (Omnipaque 300 Mg/ml) 50 ml STK-MED ONCE .ROUTE ; Start 08/15/19 at 10:58; Stop 08/15/19 at 10:59; Status DC Cellulose (Surgicel Hemostat 4x8) 1 each STK-MED ONCE .ROUTE ; Start 08/15/19 at 10:58; Stop 08/15/19 at 10:59; Status DC Bisacodyl (Dulcolax Supp) 10 mg STK-MED ONCE .ROUTE ; Start 08/15/19 at 10:59; Stop 08/15/19 at 10:59; Status DC Heparin Sodium (Porcine) 1000 unit/Sodium Chloride 1,001 ml @ 1,001 mls/hr 1X ONCE IRR ; Start 08/15/19 at 12:00; Stop 08/15/19 at 12:59; Status DC Propofol 20 ml @ As Directed STK-MED ONCE IV ; Start 08/15/19 at 11:05; Stop 08/15/19 at 11:05; Status DC Sevoflurane (Ultane) 90 ml STK-MED ONCE IH ; Start 08/15/19 at 11:05; Stop 08/15/19 at 11:05; Status DC Sevoflurane (Ultane) 60 ml STK-MED ONCE IH ; Start 08/15/19 at 12:26; Stop 08/15/19 at 12:27; Status DC Propofol 20 ml @ As Directed STK-MED ONCE IV ; Start 08/15/19 at 12:26; Stop 08/15/19 at 12:27; Status DC Phenylephrine HCl (PHENYLEPHRINE in 0.9% NACL PF) 1 mg STK-MED ONCE IV ; Start 08/15/19 at 12:34; Stop 08/15/19 at 12:34; Status DC Heparin Sodium (Porcine) (Heparin Sodium) 5,000 unit Q12HR SQ Last administered on 08/24/19at 20:57; Start 08/15/19 at 21:00; Stop 08/25/19 at 09:59; Status DC Sodium Chloride (Normal Saline Flush) 3 ml QSHIFT PRN IV AFTER MEDS AND BLOOD DRAWS; Start 08/15/19 at 13:45 Naloxone HCl (Narcan) 0.4 mg PRN Q2MIN PRN IV SEE INSTRUCTIONS Last administered on 09/24/19at 15:15; Start 08/15/19 at 13:45 Sodium Chloride 1,000 ml @ 25 mls/hr Q24H IV Last administered on 09/13/19at 13:37; Start 08/15/19 at 13:37; Stop 09/16/19 at 13:09; Status DC Naloxone HCl (Narcan) 0.4 mg PRN Q2MIN PRN IV SEE INSTRUCTIONS; Start 08/15/19 at 14:30; Status UNV Sodium Chloride 1,000 ml @ 25 mls/hr Q24H IV ; Start 08/15/19 at 14:30; Status UNV Hydromorphone HCl 30 ml @ 0 mls/hr CONT PRN PRN IV PER PROTOCOL Last administered on 08/20/19at 16:08; Start 08/15/19 at 14:30; Stop 08/22/19 at 08:55; Status DC Potassium Acetate 55 meq/Magnesium Sulfate 20 meq/ Calcium Gluconate 10 meq/ Multivitamins 10 ml/Chromium/ Copper/Manganese/ Seleni/Zn 0.5 ml/ Insulin Human Regular 35 unit/ Total Parenteral Nutrition/Amino Acids/Dextrose/ Fat Emulsion Intravenous 1,920 ml @ 80 mls/hr TPN CONT IV Last administered on 08/15/19at 22:01; Start 08/15/19 at 22:00; Stop 08/16/19 at 21:59; Status DC Bumetanide (Bumex) 2 mg [id number] IV Last administered on 08/19/19at 13:50; Start 08/16/19 at 14:00; Stop 08/20/19 at 14:10; Status DC Meropenem 1 gm/ Sodium Chloride 100 ml @ 200 mls/hr Q8HRS IV Last administered on 09/09/19at 05:53; Start 08/16/19 at 14:00; Stop 09/09/19 at 09:31; Status DC Potassium Acetate 55 meq/Magnesium Sulfate 20 meq/ Calcium Gluconate 10 meq/ Multivitamins 10 ml/Chromium/ Copper/Manganese/ Seleni/Zn 0.5 ml/ Insulin Human Regular 35 unit/ Total Parenteral Nutrition/Amino Acids/Dextrose/ Fat Emulsion Intravenous 1,920 ml @ 80 mls/hr TPN CONT IV Last administered on 08/16/19at 22:02; Start 08/16/19 at 22:00; Stop 08/17/19 at 21:59; Status DC Hydromorphone HCl (Dilaudid Standard TIN ROOFER) 12 mg STK-MED ONCE IV ; Start 08/15/19 at 14:35; Stop 08/16/19 at 13:53; Status DC Artificial Tears (Artificial Tears) 1 drop PRN Q15MIN PRN OU DRY EYE Last administered on 10/03/19at 03:38; Start 08/17/19 at 05:30 Hydromorphone HCl (Dilaudid Standard TIN ROOFER) 12 mg STK-MED ONCE IV ; Start 08/16/19 at 12:05; Stop 08/17/19 at 09:15; Status DC Potassium Acetate 65 meq/Magnesium Sulfate 20 meq/ Calcium Gluconate 10 meq/ Multivitamins 10 ml/Chromium/ Copper/Manganese/ Seleni/Zn 0.5 ml/ Insulin Human Regular 30 unit/ Total Parenteral Nutrition/Amino Acids/Dextrose/ Fat Emulsion Intravenous 1,920 ml @ 80 mls/hr TPN CONT IV Last administered on 08/17/19at 22:22; Start 08/17/19 at 22:00; Stop 08/18/19 at 21:59; Status DC Cyclobenzaprine HCl (Flexeril) 10 mg PRN Q6HRS PRN PO MUSCLE SPASMS; Start 08/18/19 at 10:45 Potassium Acetate 55 meq/Magnesium Sulfate 20 meq/ Calcium Gluconate 10 meq/ Multivitamins 10 ml/Chromium/ Copper/Manganese/ Seleni/Zn 0.5 ml/ Insulin Human Regular 30 unit/ Total Parenteral Nutrition/Amino Acids/Dextrose/ Fat Emulsion Intravenous 1,920 ml @ 80 mls/hr TPN CONT IV Last administered on 08/19/19at 01:00; Start 08/18/19 at 22:00; Stop 08/19/19 at 21:59; Status DC Magnesium Sulfate 50 ml @ 25 mls/hr 1X ONCE IV Last administered on 08/18/19at 17:18; Start 08/18/19 at 12:45; Stop 08/18/19 at 14:44; Status DC Potassium Chloride/Water 100 ml @ 100 mls/hr 1X ONCE IV Last administered on 08/19/19at 11:27; Start 08/19/19 at 12:00; Stop 08/19/19 at 12:59; Status DC Hydromorphone HCl (Dilaudid Standard TIN ROOFER) 12 mg STK-MED ONCE IV ; Start 08/17/19 at 10:50; Stop 08/19/19 at 11:02; Status DC Hydromorphone HCl (Dilaudid Standard TIN ROOFER) 12 mg STK-MED ONCE IV ; Start 08/18/19 at 13:47; Stop 08/19/19 at 11:03; Status DC Potassium Acetate 30 meq/Magnesium Sulfate 20 meq/ Calcium Gluconate 10 meq/ Multivitamins 10 ml/Chromium/ Copper/Manganese/ Seleni/Zn 0.5 ml/ Insulin Human Regular 30 unit/ Potassium Chloride 30 meq/ Total Parenteral Nutrition/Amino Acids/Dextrose/ Fat Emulsion Intravenous 1,920 ml @ 80 mls/hr TPN CONT IV Last administered on 08/19/19at 22:34; Start 08/19/19 at 22:00; Stop 08/20/19 at 21:59; Status DC Potassium Chloride/Water 100 ml @ 100 mls/hr Q1H IV Last administered on 08/20/19at 13:05; Start 08/20/19 at 07:00; Stop 08/20/19 at 10:59; Status DC Magnesium Sulfate 50 ml @ 25 mls/hr 1X ONCE IV Last administered on 08/20/19at 10:34; Start 08/20/19 at 10:30; Stop 08/20/19 at 12:29; Status DC Potassium Chloride 75 meq/ Magnesium Sulfate 20 meq/Calcium Gluconate 10 meq/ Multivitamins 10 ml/Chromium/ Copper/Manganese/ Seleni/Zn 0.5 ml/ Insulin Human Regular 30 unit/ Total Parenteral Nutrition/Amino Acids/Dextrose/ Fat Emulsion Intravenous 1,920 ml @ 80 mls/hr TPN CONT IV Last administered on 08/20/19at 21:51; Start 08/20/19 at 22:00; Stop 08/21/19 at 22:00; Status DC Potassium Chloride 75 meq/ Magnesium Sulfate 20 meq/Calcium Gluconate 10 meq/ Multivitamins 10 ml/Chromium/ Copper/Manganese/ Seleni/Zn 0.5 ml/ Insulin Human Regular 25 unit/ Total Parenteral Nutrition/Amino Acids/Dextrose/ Fat Emulsion Intravenous 1,920 ml @ 80 mls/hr TPN CONT IV Last administered on 08/21/19at 22:04; Start 08/21/19 at 22:00; Stop 08/22/19 at 21:59; Status DC Hydromorphone HCl (Dilaudid) 0.4 mg PRN Q4HRS PRN IVP PAIN Last administered on 08/22/19at 10:57; Start 08/22/19 at 09:00; Stop 08/22/19 at 18:59; Status DC Micafungin Sodium 100 mg/Dextrose 100 ml @ 100 mls/hr Q24H IV Last administered on 09/13/19at 12:17; Start 08/22/19 at 11:00; Stop 09/14/19 at 09:59; Status DC Daptomycin 485 mg/ Sodium Chloride 50 ml @ 100 mls/hr Q24H IV Last administered on 08/29/19at 13:10; Start 08/22/19 at 11:00; Stop 08/30/19 at 07:44; Status DC Potassium Chloride 75 meq/ Magnesium Sulfate 15 meq/Calcium Gluconate 8 meq/ Multivitamins 10 ml/Chromium/ Copper/Manganese/ Seleni/Zn 0.5 ml/ Insulin Human Regular 25 unit/ Total Parenteral Nutrition/Amino Acids/Dextrose/ Fat Emulsion Intravenous 1,920 ml @ 80 mls/hr TPN CONT IV Last administered on 08/22/19at 23:08; Start 08/22/19 at 22:00; Stop 08/23/19 at 21:59; Status DC Haloperidol Lactate (Haldol Inj) 3 mg 1X ONCE IVP Last administered on 08/22/19at 14:37; Start 08/22/19 at 14:30; Stop 08/22/19 at 14:31; Status DC Hydromorphone HCl (Dilaudid) 1 mg PRN Q4HRS PRN IVP PAIN Last administered on 09/05/19at 06:25; Start 08/22/19 at 19:00; Stop 09/05/19 at 17:10; Status DC Potassium Chloride 75 meq/ Magnesium Sulfate 15 meq/Calcium Gluconate 8 meq/ Multivitamins 10 ml/Chromium/ Copper/Manganese/ Seleni/Zn 0.5 ml/ Insulin Human Regular 20 unit/ Total Parenteral Nutrition/Amino Acids/Dextrose/ Fat Emulsion Intravenous 1,920 ml @ 80 mls/hr TPN CONT IV Last administered on 08/23/19at 22:10; Start 08/23/19 at 22:00; Stop 08/24/19 at 21:59; Status DC Lidocaine HCl (Buffered Lidocaine 1%) 3 ml STK-MED ONCE .ROUTE ; Start 08/24/19 at 11:31; Stop 08/24/19 at 11:31; Status DC Lidocaine HCl (Buffered Lidocaine 1%) 3 ml STK-MED ONCE .ROUTE ; Start 08/24/19 at 12:28; Stop 08/24/19 at 12:29; Status DC Lidocaine HCl (Buffered Lidocaine 1%) 6 ml 1X ONCE INJ Last administered on 08/24/19at 12:53; Start 08/24/19 at 12:45; Stop 08/24/19 at 12:46; Status DC Potassium Chloride 75 meq/ Magnesium Sulfate 15 meq/Calcium Gluconate 8 meq/ Multivitamins 10 ml/Chromium/ Copper/Manganese/ Seleni/Zn 0.5 ml/ Insulin Human Regular 20 unit/ Total Parenteral Nutrition/Amino Acids/Dextrose/ Fat Emulsion Intravenous 1,920 ml @ 80 mls/hr TPN CONT IV Last administered on 08/24/19at 22:00; Start 08/24/19 at 22:00; Stop 08/25/19 at 21:59; Status DC Potassium Chloride 75 meq/ Magnesium Sulfate 15 meq/Calcium Gluconate 8 meq/ Multivitamins 10 ml/Chromium/ Copper/Manganese/ Seleni/Zn 0.5 ml/ Insulin Human Regular 15 unit/ Total Parenteral Nutrition/Amino Acids/Dextrose/ Fat Emulsion Intravenous 1,920 ml @ 80 mls/hr TPN CONT IV Last administered on 08/25/19at 22:28; Start 08/25/19 at 22:00; Stop 08/26/19 at 21:59; Status DC Vecuronium Misenheimer (Norcuron Bolus) 6 mg PRN Q6HRS PRN IV VENT ASYNCHRONY; Start 08/25/19 at 19:15; Stop 08/25/19 at 19:35; Status DC Bumetanide (Bumex) 2 mg 1X ONCE IV Last administered on 08/25/19at 22:09; Start 08/25/19 at 19:45; Stop 08/25/19 at 19:46; Status DC Lidocaine HCl (Buffered Lidocaine 1%) 3 ml STK-MED ONCE .ROUTE ; Start 08/26/19 at 07:59; Stop 08/26/19 at 07:59; Status DC Midazolam HCl (Versed) 5 mg STK-MED ONCE .ROUTE ; Start 08/26/19 at 08:36; Stop 08/26/19 at 08:36; Status DC Fentanyl Citrate (Fentanyl 5ml Vial) 250 mcg STK-MED ONCE .ROUTE ; Start 08/26/19 at 08:36; Stop 08/26/19 at 08:37; Status DC Lidocaine HCl (Buffered Lidocaine 1%) 3 ml 1X ONCE IJ Last administered on 08/26/19at 09:30; Start 08/26/19 at 09:15; Stop 08/26/19 at 09:16; Status DC Midazolam HCl (Versed) 5 mg 1X ONCE IV Last administered on 08/26/19at 09:30; Start 08/26/19 at 09:15; Stop 08/26/19 at 09:16; Status DC Fentanyl Citrate (Fentanyl 5ml Vial) 250 mcg 1X ONCE IV Last administered on 08/26/19 09:30; Start 08/26/19 at 09:15; Stop 08/26/19 at 09:16; Status DC Bumetanide (Bumex) 2 mg DAILY IV Last administered on 09/05/19at 08:07; Start 08/26/19 at 10:00; Stop 09/05/19 at 17:15; Status DC Potassium Chloride 75 meq/ Magnesium Sulfate 15 meq/ Multivitamins 10 ml/Chromium/ Copper/Manganese/ Seleni/Zn 0.5 ml/ Insulin Human Regular 15 unit/ Total Parenteral Nutrition/Amino Acids/Dextrose/ Fat Emulsion Intravenous 1,920 ml @ 80 mls/hr TPN CONT IV Last administered on 08/26/19at 21:59; Start 08/26/19 at 22:00; Stop 08/27/19 at 21:59; Status DC Metoclopramide HCl (Reglan Vial) 10 mg PRN Q3HRS PRN IVP NAUSEA/VOMITING-3rd choice Last administered on 09/01/19at 04:25; Start 08/27/19 at 16:45 Potassium Chloride 75 meq/ Magnesium Sulfate 15 meq/ Multivitamins 10 ml/Chromium/ Copper/Manganese/ Seleni/Zn 0.5 ml/ Insulin Human Regular 15 unit/ Total Parenteral Nutrition/Amino Acids/Dextrose/ Fat Emulsion Intravenous 1,920 ml @ 80 mls/hr TPN CONT IV Last administered on 08/27/19at 22:41; Start 08/27/19 at 22:00; Stop 08/28/19 at 21:59; Status DC Magnesium Sulfate 50 ml @ 25 mls/hr 1X ONCE IV Last administered on 08/28/19at 10:44; Start 08/28/19 at 09:00; Stop 08/28/19 at 10:59; Status DC Potassium Chloride/Water 100 ml @ 100 mls/hr 1X ONCE IV Last administered on 08/28/19at 09:37; Start 08/28/19 at 09:00; Stop 08/28/19 at 09:59; Status DC Duloxetine HCl (Cymbalta) 30 mg DAILY PO Last administered on 08/29/19at 09:48; Start 08/28/19 at 14:00; Stop 08/31/19 at 10:25; Status DC Potassium Chloride 80 meq/ Magnesium Sulfate 20 meq/ Multivitamins 10 ml/Chromium/ Copper/Manganese/ Seleni/Zn 0.5 ml/ Insulin Human Regular 15 unit/ Total Parenteral Nutrition/Amino Acids/Dextrose/ Fat Emulsion Intravenous 1,920 ml @ 80 mls/hr TPN CONT IV Last administered on 08/28/19at 21:42; Start 08/28/19 at 22:00; Stop 08/29/19 at 21:59; Status DC Potassium Chloride 80 meq/ Magnesium Sulfate 20 meq/ Multivitamins 10 ml/Chromium/ Copper/Manganese/ Seleni/Zn 0.5 ml/ Insulin Human Regular 15 unit/ Total Parenteral Nutrition/Amino Acids/Dextrose/ Fat Emulsion Intravenous 1,920 ml @ 80 mls/hr TPN CONT IV Last administered on 08/29/19at 22:20; Start 08/29/19 at 22:00; Stop 08/30/19 at 21:59; Status DC Lidocaine HCl (Buffered Lidocaine 1%) 3 ml STK-MED ONCE .ROUTE ; Start 08/30/19 at 09:54; Stop 08/30/19 at 09:55; Status DC Hydromorphone HCl (Dilaudid Standard TIN ROOFER) 12 mg STK-MED ONCE IV ; Start 08/19/19 at 15:50; Stop 08/30/19 at 11:24; Status DC Potassium Chloride 80 meq/ Magnesium Sulfate 20 meq/ Multivitamins 10 ml/Chromium/ Copper/Manganese/ Seleni/Zn 0.5 ml/ Insulin Human Regular 15 unit/ Total Parenteral Nutrition/Amino Acids/Dextrose/ Fat Emulsion Intravenous 1,920 ml @ 80 mls/hr TPN CONT IV Last administered on 08/30/19at 21:40; Start at 22:00; Stop 08/31/19 at 21:59; Status DC Lidocaine HCl (Buffered Lidocaine 1%) 6 ml 1X ONCE INJ Last administered on 04/08at 14:15; Start 08/30/19 at 14:15; Stop 08/30/19 at 14:16; Status DC Potassium Chloride 80 meq/ Magnesium Sulfate 20 meq/ Multivitamins 10 ml/Chromium/ Copper/Manganese/ Seleni/Zn 1 ml/ Insulin Human Regular 15 unit/ Total Parenteral Nutrition/Amino Acids/Dextrose/ Fat Emulsion Intravenous 1,920 ml @ 80 mls/hr TPN CONT IV Last administered on 08/31/19at 22:04; Start 08/31/19 at 22:00; Stop 09/01/19 at 21:59; Status DC Potassium Chloride/Water 100 ml @ 100 mls/hr 1X ONCE IV Last administered on 09/01/19at 11:34; Start 09/01/19 at 11:00; Stop 09/01/19 at 11:59; Status DC Potassium Chloride 90 meq/ Magnesium Sulfate 20 meq/ Multivitamins 10 ml/Chromium/ Copper/Manganese/ Seleni/Zn 1 ml/ Insulin Human Regular 15 unit/ Total Parenteral Nutrition/Amino Acids/Dextrose/ Fat Emulsion Intravenous 1,920 ml @ 80 mls/hr TPN CONT IV Last administered on 09/01/19at 22:57; Start at 22:00; Stop 09/02/19 at 21:59; Status DC Potassium Chloride 90 meq/ Magnesium Sulfate 20 meq/ Multivitamins 10 ml/Chromiu m/ Copper/Manganese/ Seleni/Zn 1 ml/ Insulin Human Regular 15 unit/ Total Parenteral Nutrition/Amino Acids/Dextrose/ Fat Emulsion Intravenous 1,920 ml @ 80 mls/hr TPN CONT IV Last administered on 09/02/19at 22:48; Start 09/02/19 at 22:00; Stop 09/03/19 at 21:59; Status DC Potassium Chloride 90 meq/ Magnesium Sulfate 20 meq/ Multivitamins 10 ml/Chromium/ Copper/Manganese/ Seleni/Zn 1 ml/ Insulin Human Regular 15 unit/ Total Parenteral Nutrition/Amino Acids/Dextrose/ Fat Emulsion Intravenous 1,890 ml @ 78.75 mls/ hr TPN CONT IV Last administered on 09/03/19at 22:15; Start 09/03/19 at 22:00; Stop 09/04/19 at 21:59; Status DC Linezolid/Dextrose 300 ml @ 300 mls/hr Q12HR IV Last administered on 09/06/19at 21:08; Start 09/04/19 at 09:00; Stop 09/07/19 at 08:11; Status DC Daptomycin 450 mg/ Sodium Chloride 50 ml @ 100 mls/hr Q24H IV Last administered on 09/07/19at 09:25; Start 09/04/19 at 09:00; Stop 09/08/19 at 08:30; Status DC Potassium Chloride 90 meq/ Magnesium Sulfate 20 meq/ Multivitamins 10 ml/Chrom ium/ Copper/Manganese/ Seleni/Zn 1 ml/ Insulin Human Regular 15 unit/ Total Parenteral Nutrition/Amino Acids/Dextrose/ Fat Emulsion Intravenous 1,890 ml @ 78.75 mls/ hr TPN CONT IV Last administered on 09/04/19at 21:34; Start 09/04/19 at 22:00; Stop 09/05/19 at 21:59; Status DC Lorazepam (Ativan Inj) 2 mg STK-MED ONCE .ROUTE ; Start 09/04/19 at 14:58; Stop 09/04/19 at 14:58; Status DC Metoprolol Tartrate (Lopressor Vial) 5 mg 1X ONCE IVP Last administered on 09/04/19at 15:31; Start 09/04/19 at 15:15; Stop 09/04/19 at 15:16; Status DC Lorazepam (Ativan Inj) 2 mg 1X ONCE IVP Last administered on 09/04/19at 15:30; Start 09/04/19 at 15:15; Stop 09/04/19 at 15:16; Status DC Enoxaparin Sodium (Lovenox 40mg Syringe) 40 mg Q24H SQ Last administered on 09/23/19at 17:44; Start 09/04/19 at 17:00; Stop 09/25/19 at 06:50; Status DC Lorazepam (Ativan Inj) 1 mg PRN Q4HRS PRN IVP ANXIETY / AGITATION MILD-MOD Last administered on 09/18/19at 15:55; Start 09/04/19 at 19:15; Stop 09/20/19 at 11:45; Status DC Lorazepam (Ativan Inj) 2 mg PRN Q4HRS PRN IVP ANXIETY / AGITATION SEVERE Last administered on 09/19/19at 07:55; Start 09/04/19 at 19:15; Stop 09/20/19 at 11:45; Status DC Fentanyl Citrate (Fentanyl 2ml Vial) 50 mcg PRN Q4HRS PRN IVP SEVERE PAIN Last administered on 10/01/19at 05:15; Start 09/05/19 at 13:15; Stop 10/02/19 at 09:29; Status DC Fentanyl Citrate (Fentanyl 2ml Vial) 25 mcg PRN Q4HRS PRN IVP MODERATE PAIN Last administered on 10/01/19at 00:27; Start 09/05/19 at 13:15; Stop 10/02/19 at 09:30; Status DC Potassium Chloride 90 meq/ Magnesium Sulfate 20 meq/ Multivitamins 10 ml/Chromium/ Copper/Manganese/ Seleni/Zn 1 ml/ Insulin Human Regular 15 unit/ Total Parenteral Nutrition/Amino Acids/Dextrose/ Fat Emulsion Intravenous 1,890 ml @ 78.75 mls/ hr TPN CONT IV Last administered on 09/05/19at 22:18; Start 09/05/19 at 22:00; Stop 09/06/19 at 21:59; Status DC Furosemide (Lasix) 40 mg 1X ONCE IVP Last administered on 09/05/19at 21:51; Start 09/05/19 at 21:45; Stop 09/05/19 at 21:48; Status DC Albumin Human 100 ml @ 100 mls/hr 1X PRN PRN IV SEE COMMENTS; Start 09/06/19 at 01:30 Furosemide (Lasix) 40 mg [id number] IVP Last administered on 09/21/19at 08:04; Start 09/06/19 at 14:00; Stop 09/21/19 at 13:07; Status DC Potassium Chloride 90 meq/ Magnesium Sulfate 20 meq/ Multivitamins 10 ml/Chromium/ Copper/Manganese/ Seleni/Zn 1 ml/ Insulin Human Regular 15 unit/ Total Parenteral Nutrition/Amino Acids/Dextrose/ Fat Emulsion Intravenous 1,800 ml @ 75 mls/hr TPN CONT IV Last administered on 09/06/19at 22:31; Start 09/06/19 at 22:00; Stop 09/07/19 at 21:59; Status DC Potassium Chloride 90 meq/ Magnesium Sulfate 20 meq/ Multivitamins 10 ml/Chromium/ Copper/Manganese/ Seleni/Zn 1 ml/ Insulin Human Regular 15 unit/ Total Parenteral Nutrition/Amino Acids/Dextrose/ Fat Emulsion Intravenous 1,800 ml @ 75 mls/hr TPN CONT IV Last administered on 09/07/19at 22:28; Start 09/07/19 at 22:00; Stop 09/08/19 at 21:59; Status DC Potassium Chloride 110 meq/ Magnesium Sulfate 20 meq/ Multivitamins 10 ml/Chromium/ Copper/Manganese/ Seleni/Zn 1 ml/ Insulin Human Regular 15 unit/ Total Parenteral Nutrition/Amino Acids/Dextrose/ Fat Emulsion Intravenous 1,800 ml @ 75 mls/hr TPN CONT IV Last administered on 09/08/19at 22:01; Start 09/08/19 at 22:00; Stop 09/09/19 at 21:59; Status DC Saliva Substitute (Biotene Moisturizing Mouth) 2 spray PRN Q15MIN PRN PO DRY MOUTH; Start 09/08/19 at 11:00 Potassium Chloride 110 meq/ Magnesium Sulfate 20 meq/ Multivitamins 10 ml/Chromium/ Copper/Manganese/ Seleni/Zn 1 ml/ Insulin Human Regular 15 unit/ Total Parenteral Nutrition/Amino Acids/Dextrose/ Fat Emulsion Intravenous 1,800 ml @ 75 mls/hr TPN CONT IV Last administered on 09/09/19at 22:21; Start 09/09/19 at 22:00; Stop 09/10/19 at 21:59; Status DC Potassium Chloride 110 meq/ Magnesium Sulfate 20 meq/ Multivitamins 10 ml/Chromium/ Copper/Manganese/ Seleni/Zn 1 ml/ Insulin Human Regular 15 unit/ Total Parenteral Nutrition/Amino Acids/Dextrose/ Fat Emulsion Intravenous 1,800 ml @ 75 mls/hr TPN CONT IV Last administered on 09/10/19at 22:04; Start 09/10/19 at 22:00; Stop 09/11/19 at 21:59; Status DC Potassium Chloride 110 meq/ Magnesium Sulfate 20 meq/ Multivitamins 10 ml/Chromium/ Copper/Manganese/ Seleni/Zn 1 ml/ Insulin Human Regular 15 unit/ Total Parenteral Nutrition/Amino Acids/Dextrose/ Fat Emulsion Intravenous 1,800 ml @ 75 mls/hr TPN CONT IV Last administered on 09/11/19at 22:48; Start 09/11/19 at 22:00; Stop 09/12/19 at 21:59; Status DC Potassium Chloride 70 meq/ Magnesium Sulfate 20 meq/ Multivitamins 10 ml/Chromium/ Copper/Manganese/ Seleni/Zn 1 ml/ Insulin Human Regular 15 unit/ Total Parenteral Nutrition/Amino Acids/Dextrose/ Fat Emulsion Intravenous 1,800 ml @ 75 mls/hr TPN CONT IV Last administered on 09/12/19at 21:39; Start 09/12/19 at 22:00; Stop 09/13/19 at 21:59; Status DC Meropenem 500 mg/ Sodium Chloride 50 ml @ 100 mls/hr Q6HRS IV Last administered on 09/14/19at 06:02; Start 09/12/19 at 18:00; Stop 09/14/19 at 09:59; Status DC Barium Sulfate (Varibar Thin Liquid Apple) 148 gm 1X ONCE PO ; Start 09/13/19 at 11:45; Stop 09/13/19 at 11:49; Status DC Potassium Chloride 70 meq/ Magnesium Sulfate 20 meq/ Multivitamins 10 ml/Chromium/ Copper/Manganese/ Seleni/Zn 1 ml/ Insulin Human Regular 15 unit/ Total Parenteral Nutrition/Amino Acids/Dextrose/ Fat Emulsion Intravenous 1,800 ml @ 75 mls/hr TPN CONT IV Last administered on 09/13/19at 22:27; Start 09/13/19 at 22:00; Stop 09/14/19 at 21:59; Status DC Piperacillin Sod/ Tazobactam Sod 3.375 gm/Sodium Chloride 50 ml @ 100 mls/hr Q6HRS IV Last administered on 09/22/19at 06:10; Start 09/14/19 at 12:00; Stop 09/22/19 at 07:26; Status DC Potassium Chloride 70 meq/ Magnesium Sulfate 20 meq/ Multivitamins 10 ml/Chromium/ Copper/Manganese/ Seleni/Zn 1 ml/ Insulin Human Regular 15 unit/ Total Parenteral Nutrition/Amino Acids/Dextrose/ Fat Emulsion Intravenous 1,800 ml @ 75 mls/hr TPN CONT IV Last administered on 09/14/19at 22:03; Start 09/14/19 at 22:00; Stop 09/15/19 at 21:59; Status DC Potassium Chloride 70 meq/ Magnesium Sulfate 20 meq/ Multivitamins 10 ml/Chromium/ Copper/Manganese/ Seleni/Zn 1 ml/ Insulin Human Regular 15 unit/ Total Parenteral Nutrition/Amino Acids/Dextrose/ Fat Emulsion Intravenous 1,800 ml @ 75 mls/hr TPN CONT IV Last administered on 09/15/19at 22:33; Start 09/15/19 at 22:00; Stop 09/16/19 at 21:59; Status DC Potassium Chloride 70 meq/ Magnesium Sulfate 20 meq/ Multivitamins 10 ml/Chromium/ Copper/Manganese/ Seleni/Zn 1 ml/ Insulin Human Regular 15 unit/ Total Parenteral Nutrition/Amino Acids/Dextrose/ Fat Emulsion Intravenous 1,800 ml @ 75 mls/hr TPN CONT IV Last administered on 09/16/19at 23:13; Start 09/16/19 at 22:00; Stop 09/17/19 at 21:59; Status DC Potassium Chloride 80 meq/ Magnesium Sulfate 20 meq/ Multivitamins 10 ml/Chromium/ Copper/Manganese/ Seleni/Zn 1 ml/ Insulin Human Regular 15 unit/ Total Parenteral Nutrition/Amino Acids/Dextrose/ Fat Emulsion Intravenous 1,800 ml @ 75 mls/hr TPN CONT IV Last administered on 09/17/19at 22:30; Start 09/17/19 at 22:00; Stop 09/18/19 at 21:59; Status DC Potassium Chloride 80 meq/ Magnesium Sulfate 20 meq/ Multivitamins 10 ml/Chromium/ Copper/Manganese/ Seleni/Zn 1 ml/ Insulin Human Regular 15 unit/ Total Parenteral Nutrition/Amino Acids/Dextrose/ Fat Emulsion Intravenous 1,800 ml @ 75 mls/hr TPN CONT IV Last administered on 09/18/19at 21:54; Start 09/18/19 at 22:00; Stop 09/19/19 at 21:59; Status DC Potassium Chloride/Water 100 ml @ 100 mls/hr 1X ONCE IV Last administered on 09/19/19at 10:15; Start 09/19/19 at 10:00; Stop 09/19/19 at 10:59; Status DC Potassium Chloride 90 meq/ Magnesium Sulfate 20 meq/ Multivitamins 10 ml/Chromium/ Copper/Manganese/ Seleni/Zn 1 ml/ Insulin Human Regular 20 unit/ Total Parenteral Nutrition/Amino Acids/Dextrose/ Fat Emulsion Intravenous 1,800 ml @ 75 mls/hr TPN CONT IV Last administered on 09/19/19at 22:28; Start 09/19/19 at 22:00; Stop 09/20/19 at 21:59; Status DC Potassium Chloride 90 meq/ Magnesium Sulfate 20 meq/ Multivitamins 10 ml/Chromium/ Copper/Manganese/ Seleni/Zn 1 ml/ Insulin Human Regular 20 unit/ Total Parenteral Nutrition/Amino Acids/Dextrose/ Fat Emulsion Intravenous 1,800 ml @ 75 mls/hr TPN CONT IV Last administered on 09/20/19at 22:08; Start 09/20/19 at 22:00; Stop 09/21/19 at 21:59; Status DC Lorazepam (Ativan Inj) 0.25 mg PRN Q4HRS PRN IVP ANXIETY / AGITATION Last administered on 10/01/19at 02:25; Start 09/21/19 at 07:30 Potassium Chloride 90 meq/ Magnesium Sulfate 20 meq/ Multivitamins 10 ml/Chromium/ Copper/Manganese/ Seleni/Zn 1 ml/ Insulin Human Regular 20 unit/ Total Parenteral Nutrition/Amino Acids/Dextrose/ Fat Emulsion Intravenous 1,800 ml @ 75 mls/hr TPN CONT IV Last administered on 09/21/19at 23:13; Start 09/21/19 at 22:00; Stop 09/22/19 at 21:59; Status DC Furosemide (Lasix) 40 mg DAILY IVP Last administered on 09/23/19at 11:14; Start 09/21/19 at 13:30; Stop 09/25/19 at 09:12; Status DC Fluoxetine HCl (PROzac) 20 mg QHS PEG Last administered on 10/03/19at 21:53; Start 09/22/19 at 21:00 Fentanyl (Duragesic 50mcg/ Hr Patch) 1 patch Q72H TD Last administered on 09/22/19at 21:22; Start 09/22/19 at 21:00; Stop 10/01/19 at 12:00; Status DC Potassium Chloride 40 meq/ Potassium Acetate 60 meq/Magnesium Sulfate 10 meq/ Multivitamins 10 ml/Chromium/ Copper/Manganese/ Seleni/Zn 1 ml/ Insulin Human Regular 20 unit/ Total Parenteral Nutrition/Amino Acids/Dextrose/ Fat Emulsion Intravenous 1,800 ml @ 75 mls/hr TPN CONT IV Last administered on 09/23/19at 00:03; Start 09/22/19 at 22:00; Stop 09/23/19 at 21:59; Status DC Potassium Acetate 80 meq/Magnesium Sulfate 5 meq/ Multivitamins 10 ml/Chromium/ Copper/Manganese/ Seleni/Zn 1 ml/ Insulin Human Regular 20 unit/ Total Parenteral Nutrition/Amino Acids/Dextrose/ Fat Emulsion Intravenous 1,920 ml @ 80 mls/hr TPN CONT IV Last administered on 09/23/19at 21:59; Start 09/23/19 at 22:00; Stop 09/24/19 at 21:59; Status DC Potassium Acetate 60 meq/Magnesium Sulfate 5 meq/ Multivitamins 10 ml/Chromium/ Copper/Manganese/ Seleni/Zn 1 ml/ Insulin Human Regular 30 unit/ Total Parenteral Nutrition/Amino Acids/Dextrose/ Fat Emulsion Intravenous 1,920 ml @ 80 mls/hr TPN CONT IV Last administered on 09/24/19at 21:54; Start 09/24/19 at 22:00; Stop 09/25/19 at 21:59; Status DC Norepinephrine Bitartrate 8 mg/ Dextrose 258 ml @ 13.332 mls/ hr CONT PRN IV PER PROTOCOL Last administered on 09/25/19at 21:46; Start 09/25/19 at 06:30 Albumin Human 500 ml @ 125 mls/hr 1X ONCE IV Last administered on 09/25/19at 08:10; Start 09/25/19 at 08:15; Stop 09/25/19 at 12:14; Status DC Potassium Acetate 40 meq/Magnesium Sulfate 5 meq/ Multivitamins 10 ml/Chromium/ Copper/Manganese/ Seleni/Zn 1 ml/ Insulin Human Regular 30 unit/ Total Parenteral Nutrition/Amino Acids/Dextrose/ Fat Emulsion Intravenous 1,920 ml @ 80 mls/hr TPN CONT IV Last administered on 09/25/19at 22:23; Start 09/25/19 at 22:00; Stop 09/26/19 at 21:59; Status DC Meropenem 1 gm/ Sodium Chloride 100 ml @ 200 mls/hr Q8HRS IV ; Start 09/25/19 at 14:00; Status Cancel Meropenem 1 gm/ Sodium Chloride 100 ml @ 200 mls/hr Q8HRS IV Last administered on 09/25/19at 11:04; Start 09/25/19 at 10:00; Stop 09/25/19 at 13:00; Status DC Meropenem 1 gm/ Sodium Chloride 100 ml @ 200 mls/hr Q12HR IV Last administered on 10/05/19at 08:23; Start 09/25/19 at 21:00 Sodium Chloride 1,000 ml @ 1,000 mls/hr 1X ONCE IV Last administered on 09/25/19at 11:06; Start 09/25/19 at 10:45; Stop 09/25/19 at 11:44; Status DC Micafungin Sodium 100 mg/Dextrose 100 ml @ 100 mls/hr Q24H IV Last administered on 10/04/19at 10:43; Start 09/25/19 at 11:00 Daptomycin 410 mg/ Sodium Chloride 50 ml @ 100 mls/hr Q24H IV Last administered on 09/27/19at 13:33; Start 09/25/19 at 14:00; Stop 09/28/19 at 08:30; Status DC Midazolam HCl (Versed) 2 mg STK-MED ONCE .ROUTE ; Start 09/25/19 at 14:47; Stop 09/25/19 at 14:48; Status DC Fentanyl Citrate (Fentanyl 2ml Vial) 100 mcg STK-MED ONCE .ROUTE ; Start 09/25/19 at 14:47; Stop 09/25/19 at 14:48; Status DC Flumazenil (Romazicon) 0.5 mg STK-MED ONCE IV ; Start 09/25/19 at 14:48; Stop 09/25/19 at 14:48; Status DC Naloxone HCl (Narcan) 0.4 mg STK-MED ONCE .ROUTE ; Start 09/25/19 at 14:48; Stop 09/25/19 at 14:48; Status DC Lidocaine HCl (Lidocaine 1% 20ml Vial) 20 ml STK-MED ONCE .ROUTE ; Start 09/25/19 at 14:48; Stop 09/25/19 at 14:48; Status DC Midazolam HCl (Versed) 2 mg 1X ONCE IV Last administered on 09/25/19at 15:28; Start 09/25/19 at 15:00; Stop 09/25/19 at 15:01; Status DC Fentanyl Citrate (Fentanyl 2ml Vial) 100 mcg 1X ONCE IV Last administered on 09/25/19at 15:28; Start 09/25/19 at 15:00; Stop 09/25/19 at 15:01; Status DC Lidocaine HCl (Lidocaine 1% 20ml Vial) 20 ml 1X ONCE INJ Last administered on 09/25/19at 15:30; Start 09/25/19 at 15:00; Stop 09/25/19 at 15:01; Status DC Sodium Chloride 1,000 ml @ 100 mls/hr Q10H IV Last administered on 10/04/19at 07:30; Start 09/25/19 at 20:00; Stop 10/04/19 at 11:26; Status DC Sodium Bicarbonate (Sodium Bicarb Adult 8.4% Syr) 50 meq 1X ONCE IV Last administered on 09/25/19at 21:47; Start 09/25/19 at 22:00; Stop 09/25/19 at 22:01; Status DC Potassium Acetate 40 meq/Magnesium Sulfate 5 meq/ Multivitamins 10 ml/Chromium/ Copper/Manganese/ Seleni/Zn 1 ml/ Insulin Human Regular 30 unit/ Total Parenteral Nutrition/Amino Acids/Dextrose/ Fat Emulsion Intravenous 1,920 ml @ 80 mls/hr TPN CONT IV Last administered on 09/26/19at 22:28; Start 09/26/19 at 22:00; Stop 09/27/19 at 21:59; Status DC Sodium Chloride 500 ml @ 500 mls/hr 1X ONCE IV Last administered on 09/27/19at 06:39; Start 09/27/19 at 06:45; Stop 09/27/19 at 07:44; Status DC Potassium Acetate 40 meq/Magnesium Sulfate 5 meq/ Multivitamins 10 ml/Chromium/ Copper/Manganese/ Seleni/Zn 1 ml/ Insulin Human Regular 30 unit/ Total P arenteral Nutrition/Amino Acids/Dextrose/ Fat Emulsion Intravenous 1,920 ml @ 80 mls/hr TPN CONT IV Last administered on 09/27/19at 22:03; Start 09/27/19 at 22:00; Stop 09/28/19 at 21:59; Status DC Metoprolol Tartrate (Lopressor Vial) 5 mg PRN Q6HRS PRN IVP HYPERTENSION Last administered on 10/01/19at 04:03; Start 09/28/19 at 09:00 Potassium Acetate 40 meq/Magnesium Sulfate 5 meq/ Multivitamins 10 ml/Chromium/ Copper/Manganese/ Seleni/Zn 1 ml/ Insulin Human Regular 30 unit/ Total Parenteral Nutrition/Amino Acids/Dextrose/ Fat Emulsion Intravenous 1,920 ml @ 80 mls/hr TPN CONT IV Last administered on 09/28/19at 21:26; Start 09/28/19 at 22:00; Stop 09/29/19 at 21:59; Status DC Potassium Acetate 40 meq/Magnesium Sulfate 5 meq/ Multivitamins 10 ml/Chromium/ Copper/Manganese/ Seleni/Zn 1 ml/ Insulin Human Regular 30 unit/ Total Parenteral Nutrition/Amino Acids/Dextrose/ Fat Emulsion Intravenous 1,920 ml @ 80 mls/hr TPN CONT IV Last administered on 09/29/19at 23:23; Start 09/29/19 at 22:00; Stop 09/30/19 at 21:59; Status DC Potassium Acetate 40 meq/Magnesium Sulfate 5 meq/ Multivitamins 10 ml/Chromium/ Copper/Manganese/ Seleni/Zn 1 ml/ Insulin Human Regular 30 unit/ Total Parenteral Nutrition/Amino Acids/Dextrose/ Fat Emulsion Intravenous 1,920 ml @ 80 mls/hr TPN CONT IV Last administered on 09/30/19at 21:35; Start 09/30/19 at 22:00; Stop 10/01/19 at 21:59; Status DC Furosemide (Lasix) 20 mg 1X ONCE IVP Last administered on 10/01/19at 06:26; Start 10/01/19 at 06:15; Stop 10/01/19 at 06:16; Status DC Methylprednisolone Sodium Succinate (SOLU-Medrol 125MG VIAL) 125 mg 1X ONCE IV Last administered on 10/01/19at 06:26; Start 10/01/19 at 06:15; Stop 10/01/19 at 06:16; Status DC Albuterol/ Ipratropium (Duoneb) 3 ml Q4HRS NEB Last administered on 10/05/19at 04:04; Start 10/01/19 at 08:00 Fentanyl Citrate 30 ml @ 0 mls/hr CONT PRN IV SEE PROTOCOL Last administered on 10/04/19at 11:18; Start 10/01/19 at 06:00 Propofol 100 ml @ 0 mls/hr CONT PRN IV SEE PROTOCOL Last administered on 10/05/19at 04:31; Start 10/01/19 at 06:00 Fentanyl Citrate (Fentanyl 2ml Vial) 25 mcg PRN Q1HR PRN IV SEE COMMENTS; Start 10/01/19 at 06:00 Fentanyl Citrate (Fentanyl 2ml Vial) 50 mcg PRN Q1HR PRN IV SEE COMMENTS; Start 10/01/19 at 06:00 Chlorhexidine Gluconate (Peridex) 15 ml BID MM ; Start 10/01/19 at 09:00; Stop 10/01/19 at 07:58; Status DC Potassium Acetate 40 meq/Magnesium Sulfate 5 meq/ Multivitamins 10 ml/Chromium/ Copper/Manganese/ Seleni/Zn 1 ml/ Insulin Human Regular 30 unit/ Total Parenteral Nutrition/Amino Acids/Dextrose/ Fat Emulsion Intravenous 1,920 ml @ 80 mls/hr TPN CONT IV Last administered on 10/01/19at 21:19; Start 10/01/19 at 22:00; Stop 10/02/19 at 21:59; Status DC Acetylcysteine (Mucomyst 20% Resp Treatment) 600 mg BID NEB Last administered on 10/04/19at 20:36; Start 10/01/19 at 21:00 Magnesium Sulfate 100 ml @ 25 mls/hr 1X ONCE IV Last administered on 10/01/19at 15:48; Start 10/01/19 at 15:45; Stop 10/01/19 at 19:44; Status DC Potassium Acetate 40 meq/Magnesium Sulfate 5 meq/ Multivitamins 10 ml/Chromium/ Copper/Manganese/ Seleni/Zn 1 ml/ Insulin Human Regular 30 unit/ Total Parenteral Nutrition/Amino Acids/Dextrose/ Fat Emulsion Intravenous 1,920 ml @ 80 mls/hr TPN CONT IV Last administered on 10/02/19at 21:35; Start 10/02/19 at 22:00; Stop 10/03/19 at 21:59; Status DC Potassium Chloride/Water 100 ml @ 100 mls/hr Q1H IV Last administered on 10/03/19at 08:31; Start 10/03/19 at 07:00; Stop 10/03/19 at 08:59; Status DC Potassium Acetate 40 meq/Magnesium Sulfate 5 meq/ Multivitamins 10 ml/Chromium/ Copper/Manganese/ Seleni/Zn 1 ml/ Insulin Human Regular 30 unit/ Total Parenteral Nutrition/Amino Acids/Dextrose/ Fat Emulsion Intravenous 1,920 ml @ 80 mls/hr TPN CONT IV Last administered on 10/03/19at 21:54; Start 10/03/19 at 22:00; Stop 10/04/19 at 19:34; Status DC Lidocaine HCl (Buffered Lidocaine 1%) 3 ml STK-MED ONCE .ROUTE ; Start 10/03/19 at 12:14; Stop 10/03/19 at 12:14; Status DC Lidocaine HCl (Buffered Lidocaine 1%) 3 ml 1X ONCE IJ Last administered on 10/03/19at 13:11; Start 10/03/19 at 13:00; Stop 10/03/19 at 13:01; Status DC Magnesium Sulfate 50 ml @ 25 mls/hr 1X ONCE IV ; Start 10/04/19 at 08:15; Stop 10/04/19 at 10:14; Status DC Potassium Acetate 40 meq/Magnesium Sulfate 10 meq/ Multivitamins 10 ml/Chromium/ Copper/Manganese/ Seleni/Zn 1 ml/ Insulin Human Regular 20 unit/ Total Parenteral Nutrition/Amino Acids/Dextrose/ Fat Emulsion Intravenous 1,920 ml @ 80 mls/hr TPN CONT IV Last administered on 10/04/19at 21:32; Start 10/04/19 at 22:00; Stop 10/05/19 at 21:59 Potassium Chloride/Water 100 ml @ 100 mls/hr Q1H IV Last administered on 10/05/19at 07:48; Start 10/05/19 at 08:00; Stop 10/05/19 at 09:59 Active Scripts Active Reported Bisoprolol Fumarate 5 Mg Tablet 10 Mg PO DAILY Vitals/I & O Vital Sign - Last 24 Hours 10/04/19 10/04/19 10/04/19 10/04/19 10:00 11:00 11:18 11:36 Pulse 124 118 Resp 24 21 25 B/P (MAP) 124/60 (81) 130/67 (88) Pulse Ox 99 99 99 O2 Delivery Tracheal Collar Tracheal Collar Tracheal Collar Mechanical Ventilator O2 Flow Rate 9.0 9.0 9.0 10/04/19 10/04/19 10/04/19 10/04/19 11:36 11:51 12:00 12:00 Temp 97.7 97.7 Pulse 114 Resp 29 31 B/P (MAP) 116/58 (77) Pulse Ox 99 99 O2 Delivery Tracheal Collar Tracheal Collar O2 Flow Rate 9.0 9.0 10/04/19 10/04/19 10/04/19 10/04/19 12:06 13:00 14:00 15:00 Pulse 114 112 111 Resp 19 16 20 B/P (MAP) 121/67 (85) 127/66 (86) 131/67 (88) Pulse Ox 99 99 99 99 O2 Delivery Tracheal Collar Tracheal Collar Tracheal Collar Tracheal Collar O2 Flow Rate 9.0 9.0 9.0 9.0 10/04/19 10/04/19 10/04/19 10/04/19 15:51 15:54 15:54 16:00 Temp 98.2 98.2 Pulse 112 Resp 19 B/P (MAP) 123/61 (81) Pulse Ox 97 99 O2 Delivery Tracheal Collar Trach Collar Tracheal Collar O2 Flow Rate 9.0 9.0 10/04/19 10/04/19 10/04/19 10/04/19 17:00 19:00 20:00 20:00 Temp 98.6 98.6 Pulse 111 116 122 Resp 17 18 24 B/P (MAP) 119/58 (78) 118/60 (79) 134/62 (86) Pulse Ox 99 99 99 O2 Delivery Tracheal Collar Tracheal Collar Tracheal Collar Trach Collar O2 Flow Rate 9.0 10/04/19 10/04/19 10/04/19 10/04/19 20:00 21:00 22:00 22:30 Pulse 120 118 118 Resp 16 20 B/P (MAP) 131/62 (85) 115/57 (76) 115/62 (79) Pulse Ox 99 98 99 O2 Delivery Tracheal Collar Ventilator Ventilator 10/04/19 10/05/19 10/05/19 10/05/19 23:00 00:00 00:00 00:00 Temp 98.8 98.8 Pulse 101 104 101 Resp 20 20 B/P (MAP) 103/54 (70) 149/65 (93) 143/58 (86) Pulse Ox 99 99 O2 Delivery Ventilator Trach Collar Ventilator 10/05/19 10/05/19 10/05/19 10/05/19 01:00 01:30 02:00 03:00 Pulse 109 107 105 Resp 20 20 20 B/P (MAP) 137/58 (84) 125/62 (83) 110/64 (79) Pulse Ox 100 99 98 98 O2 Delivery Ventilator Ventilator Ventilator Ventilator 10/05/19 10/05/19 10/05/19 10/05/19 04:00 04:00 04:00 04:16 Temp 98.4 98.4 Pulse 108 107 Resp 20 B/P (MAP) 113/47 (69) 143/68 (93) Pulse Ox 99 100 O2 Delivery Trach Collar Ventilator Ventilator 10/05/19 10/05/19 10/05/19 10/05/19 05:00 06:00 07:00 07:45 Pulse 112 108 105 Resp B/P (MAP) 112/52 (72) 132/66 (88) 147/61 (89) Pulse Ox 99 98 98 100 O2 Delivery Ventilator Ventilator Ventilator Ventilator 10/05/19 10/05/19 10/05/19 10/05/19 08:00 08:00 08:00 09:00 Temp 99.0 99.0 Pulse 103 104 Resp B/P (MAP) 132/60 (84) 153/70 (97) Pulse Ox 100 98 O2 Delivery Ventilator Mechanical Ventilator Ventilator Intake and Output 10/04/19 10/04/19 10/05/19 15:00 23:00 07:00 Intake Total 931 ml 713.4 ml 787.5 ml Output Total 585 ml 905 ml 485 ml Balance 346 ml -191.6 ml 302.5 ml Hemodynamically unstable?: No Is patient in severe pain?: No Is NPO status required?: No CARIN FERNANDEZ MD Oct 05, 2019 09:06
[2019-10-05] MEDS ORDERED: ALTEPLASE 1MG SYRINGE. INT CAT ONE ×3 (09:15)
[2019-10-05] MEDS ORDERED: ALTEPLASE IV ONE ×6 (10:00)
[2019-10-05] MEDS ORDERED: NORMAL SALINE IV ONE ×6 (10:00)
--- NOTE | 2019-10-05 10:07 | PATHOLOGY ---
Note [facility] Accession Number: [id number] TESTS RESULT FLAG UNITS REF RANGE LAB Clinician Provided Cytology Information No. of containers..01 Other (Miscellaneous) Source: PLEURAL FLUID RT DIAGNOSIS: 02 PLEURAL FLUID RT NEGATIVE FOR MALIGNANT CELLS. FEW MESOTHELIAL CELLS AND INFLAMMATORY CELLS IDENTIFIED. THIS INTERPRETATION INCLUDES EVALUATION OF A CELL BLOCK. Signed out by: 02 Sascha Gomez MD, Pathologist NPI- [id number] Performed by: 01 Katerine Hall, Hospice Coordinator ([facility]) Gross description: 01 10ML, CLOUDY YELLOW, 1TP 1CB /LCS 10/04/2019 0534 Local FLAG LEGEND: L-Low Normal,H-High Normal,LL-Alert Low,HH-Alert High <-Panic Low,>-Panic High,A-Abnormal,AA-Critical Abnormal Performed at: 01 [facility] [address] [place] [address] Ryan Martinez MD, 02 [facility] [address] [place] [address] Sascha Gomez MD, Specimen Comment: A courtesy copy of this report has been sent to [phone], [phone] Specimen Comment: [phone], Specimen Comment: Report sent to DR KIRBY,DR MACIEL / DR LANDRUM Specimen Comment: Report sent to Specimen Comment: A duplicate report has been generated due to demographic updates. Performed at: [address], [place], [place] [id number] MD Ryan Martinez MD Phone: [phone]
[2019-10-05] MEDS: METOPROLOL TARTRATE 5 MG/5 ML VIAL. IVP PRN (10:10)
--- NOTE | 2019-10-05 10:26 | NUR ---
SS following up with discharge planning. SS reviewed pt chart and discussed with pt RN. Pt is currently requiring vent at and trach shield during the day. Pt has three drains and continues to have brown drainage. Pt now has chest tube and had thoracentesis on 10/03/2019. Pt on IV Meropenem and Micafungin and TPN. Pt remains Full Code per family request. SS will continue to follow for discharge planning.
[2019-10-05] MEDS: TPN PER PHARMACY MC PRN (10:33)
--- NOTE | 2019-10-05 10:38 | PDOC ---
Objective: Objective: D/w nurse - minimal drainage, IR to eval drains soon. Vital Signs: Vital Signs Date Time Temp Pulse Resp B/P (MAP) Pulse Ox O2 Delivery O2 Flow Rate FiO2 10/05/19 10:10 132 186/69 10/05/19 10:07 100 Trach Collar 40% FIO2 10/05/19 09:00 20 10/05/19 08:00 99.0 99.0 10/04/19 17:00 9.0 Labs: Laboratory Tests Test 10/04/19 12:19 10/05/19 00:23 10/05/19 06:00 10/05/19 06:13 Glucose (Fingerstick) 145 mg/dL 95 mg/dL 108 mg/dL White Blood Count 8.0 x10^3/uL Red Blood Count 3.14 x10^6/uL Hemoglobin 8.9 g/dL Hematocrit 26.7 % Mean Corpuscular Volume 85 fL Mean Corpuscular Hemoglobin 29 pg Mean Corpuscular Hemoglobin Concent 34 g/dL Red Cell Distribution Width 18.3 % Platelet Count 424 x10^3/uL Neutrophils (%) (Auto) 73 % Lymphocytes (%) (Auto) 22 % Monocytes (%) (Auto) 4 % Eosinophils (%) (Auto) 1 % Basophils (%) (Auto) 0 % Neutrophils # (Auto) 5.8 x10^3/uL Lymphocytes # (Auto) 1.7 x10^3/uL Monocytes # (Auto) 0.3 x10^3/uL Eosinophils # (Auto) 0.1 x10^3/uL Basophils # (Auto) 0.0 x10^3/uL Sodium Level 140 mmol/L Potassium Level 3.4 mmol/L Chloride Level 106 mmol/L Carbon Dioxide Level 25 mmol/L Anion Gap 9 Blood Urea Nitrogen 23 mg/dL Creatinine 0.7 mg/dL Estimated GFR (Cockcroft-Gault) 88.9 BUN/Creatinine Ratio 33 Glucose Level 121 mg/dL Calcium Level 9.0 mg/dL Magnesium Level 1.7 mg/dL Total Bilirubin 0.6 mg/dL Aspartate Amino Transf (AST/SGOT) 18 U/L Alanine Aminotransferase (ALT/SGPT) 27 U/L Alkaline Phosphatase 110 U/L Total Protein 4.5 g/dL Albumin 1.0 g/dL Albumin/Globulin Ratio 0.3 Test 10/05/19 07:45 O2 Saturation 98 % Arterial Blood pH 7.47 Arterial Blood pCO2 at Patient Temp 27 mmHg Arterial Blood pO2 at Patient Temp 109 mmHg Arterial Blood HCO3 19 mmol/L Arterial Blood Base Excess -4 mmol/L FiO2 35 Imaging: CXR 10/04 PE: NEURO/PSYCH: sleeping, not awakened A/P: Complicated pancreatitis -- Continue support. Justicifation of Admission Dx: Justifications for Admission: Justification of Admission Dx: Yes CYNDEE FALCON Oct 05, 2019 10:38
[2019-10-05] MEDS: MICAFUNGIN 100 MG in IV DEXTROSE 5% 100ML 100 ML IV SCH (10:41)
--- NOTE | 2019-10-05 10:49 | NUR ---
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, 8 inches Weight: 84.0 kg Current diet: NPO LABS: Sodium: 140 Potassium: 3.4 Chloride: 106 Calcium: 8.9 Corrected Calcium: 11.30 Magnesium: 1.5 CO2: 25 SCr: 0.7 Glucose: 113, 129, 122 Albumin: 1.0 AST: 62 ALT: 72 TPN FORMULA: TPN TYPE: Central Continuous AMINO ACIDS: 75 gm DEXTROSE: 250 gm LIPIDS: 20 gm SODIUM CHLORIDE: - mEq SODIUM ACETATE: - mEq SODIUM PHOSPHATE: - mmol POTASSIUM CHLORIDE: - mEq POTASSIUM ACETATE: 60 mEq POTASSIUM PHOSPHATE: - mmol MAGNESIUM: 10 mEq CALCIUM: - mEq INSULIN: 20 units MULTIPLE VITAMIN: 10 ml TRACE ELEMENTS: 1 ml(s) TPN PLAN: INCREASE KACETATE TO 60 MEQ IN TPN R: Continue TPN AT SAME RATE Will monitor electrolytes, glucose, and tolerance to TPN. KRISTIAN APODACA [facility], 10/05/19 1040
--- NOTE | 2019-10-05 11:06 | PDOC ---
PULMONARY PROGRESS NOTES Subjective back on vent / , no distress Patient intubated on 07/10 , s/p trach 07/24, transferred back to ICU 09/22 for syncope with collapse developed anemia, blood drainage from RLQ abdomen drain site, and surrounding firmness / developed septic shock 09/24 from abdomen source, required levo 09/24 s/p 3 new drains 09/24 with brown color drainage Vitals Vital Signs Date Time Temp Pulse Resp B/P (MAP) Pulse Ox O2 Delivery O2 Flow Rate FiO2 10/05/19 10:10 132 186/69 10/05/19 10:07 100 Trach Collar 40% FIO2 10/05/19 10:00 39 10/05/19 08:00 99.0 99.0 10/04/19 17:00 9.0 Comments awake,no soa General: Alert, No acute distress HEENT: Other (nc at perrl nose clear neck trach site ok no lab no thyromegaly) Lungs: Other (diminshed in bases, Rhonci in LLL) Cardiovascular: S1, S2 Abdomen: Soft, Non-tender, Other (bleeding from Sx. site RLQ and firmness) Extremities: Other (+1 BLE edema) Skin: Warm, Dry Labs Laboratory Tests Test 10/03/19 11:47 10/03/19 17:24 10/04/19 01:26 10/04/19 06:20 Glucose (Fingerstick) 121 mg/dL (70-99) 105 mg/dL (70-99) 113 mg/dL (70-99) 122 mg/dL (70-99) White Blood Count 8.4 x10^3/uL (4.0-11.0) Red Blood Count 3.38 x10^6/uL (3.50-5.40) Hemoglobin 9.7 g/dL (12.0-15.5) Hematocrit 28.9 % (36.0-47.0) Mean Corpuscular Volume 86 fL (79-100) Mean Corpuscular Hemoglobin 29 pg (25-35) Mean Corpuscular Hemoglobin Concent 34 g/dL (31-37) Red Cell Distribution Width 18.6 % (11.5-14.5) Platelet Count 432 x10^3/uL (140-400) Neutrophils (%) (Auto) 79 % (31-73) Lymphocytes (%) (Auto) 16 % (24-48) Monocytes (%) (Auto) 4 % (0-9) Eosinophils (%) (Auto) 1 % (0-3) Basophils (%) (Auto) 0 % (0-3) Neutrophils # (Auto) 6.6 x10^3/uL (1.8-7.7) Lymphocytes # (Auto) 1.3 x10^3/uL (1.0-4.8) Monocytes # (Auto) 0.3 x10^3/uL (0.0-1.1) Eosinophils # (Auto) 0.1 x10^3/uL (0.0-0.7) Basophils # (Auto) 0.0 x10^3/uL (0.0-0.2) Sodium Level 141 mmol/L (136-145) Potassium Level 3.6 mmol/L (3.5-5.1) Chloride Level 108 mmol/L (98-107) Carbon Dioxide Level 23 mmol/L (21-32) Anion Gap 10 (6-14) Blood Urea Nitrogen 28 mg/dL (7-20) Creatinine 0.7 mg/dL (0.6-1.0) Estimated GFR (Cockcroft-Gault) 88.9 Glucose Level 129 mg/dL (70-99) Calcium Level 8.9 mg/dL (8.5-10.1) Magnesium Level 1.5 mg/dL (1.8-2.4) Triglycerides Level 251 mg/dL (0-150) Test 10/04/19 08:00 10/04/19 12:19 10/05/19 00:23 10/05/19 06:00 O2 Saturation 98 % (92-99) Arterial Blood pH 7.39 (7.35-7.45) Arterial Blood pCO2 at Patient Temp 34 mmHg (35-46) Arterial Blood pO2 at Patient Temp 121 mmHg (75-108) Arterial Blood HCO3 20 mmol/L (21-28) Arterial Blood Base Excess -4 mmol/L (-3-3) FiO2 35% Glucose (Fingerstick) 145 mg/dL (70-99) 95 mg/dL (70-99) White Blood Count 8.0 x10^3/uL (4.0-11.0) Red Blood Count 3.14 x10^6/uL (3.50-5.40) Hemoglobin 8.9 g/dL (12.0-15.5) Hematocrit 26.7 % (36.0-47.0) Mean Corpuscular Volume 85 fL (79-100) Mean Corpuscular Hemoglobin 29 pg (25-35) Mean Corpuscular Hemoglobin Concent 34 g/dL (31-37) Red Cell Distribution Width 18.3 % (11.5-14.5) Platelet Count 424 x10^3/uL (140-400) Neutrophils (%) (Auto) 73 % (31-73) Lymphocytes (%) (Auto) 22 % (24-48) Monocytes (%) (Auto) 4 % (0-9) Eosinophils (%) (Auto) 1 % (0-3) Basophils (%) (Auto) 0 % (0-3) Neutrophils # (Auto) 5.8 x10^3/uL (1.8-7.7) Lymphocytes # (Auto) 1.7 x10^3/uL (1.0-4.8) Monocytes # (Auto) 0.3 x10^3/uL (0.0-1.1) Eosinophils # (Auto) 0.1 x10^3/uL (0.0-0.7) Basophils # (Auto) 0.0 x10^3/uL (0.0-0.2) Sodium Level 140 mmol/L (136-145) Potassium Level 3.4 mmol/L (3.5-5.1) Chloride Level 106 mmol/L (98-107) Carbon Dioxide Level 25 mmol/L (21-32) Anion Gap 9 (6-14) Blood Urea Nitrogen 23 mg/dL (7-20) Creatinine 0.7 mg/dL (0.6-1.0) Estimated GFR (Cockcroft-Gault) 88.9 BUN/Creatinine Ratio 33 (6-20) Glucose Level 121 mg/dL (70-99) Calcium Level 9.0 mg/dL (8.5-10.1) Magnesium Level 1.7 mg/dL (1.8-2.4) Total Bilirubin 0.6 mg/dL (0.2-1.0) Aspartate Amino Transf (AST/SGOT) 18 U/L (15-37) Alanine Aminotransferase (ALT/SGPT) 27 U/L (14-59) Alkaline Phosphatase 110 U/L (46-116) Total Protein 4.5 g/dL (6.4-8.2) Albumin 1.0 g/dL (3.4-5.0) Albumin/Globulin Ratio 0.3 (1.0-1.7) Test 10/05/19 06:13 10/05/19 07:45 Glucose (Fingerstick) 108 mg/dL (70-99) O2 Saturation 98 % (92-99) Arterial Blood pH 7.47 (7.35-7.45) Arterial Blood pCO2 at Patient Temp 27 mmHg (35-46) Arterial Blood pO2 at Patient Temp 109 mmHg (75-108) Arterial Blood HCO3 19 mmol/L (21-28) Arterial Blood Base Excess -4 mmol/L (-3-3) FiO2 35 Laboratory Tests Test 10/04/19 12:19 10/05/19 00:23 10/05/19 06:00 10/05/19 06:13 Glucose (Fingerstick) 145 mg/dL (70-99) 95 mg/dL (70-99) 108 mg/dL (70-99) White Blood Count 8.0 x10^3/uL (4.0-11.0) Red Blood Count 3.14 x10^6/uL (3.50-5.40) Hemoglobin 8.9 g/dL (12.0-15.5) Hematocrit 26.7 % (36.0-47.0) Mean Corpuscular Volume 85 fL (79-100) Mean Corpuscular Hemoglobin 29 pg (25-35) Mean Corpuscular Hemoglobin Concent 34 g/dL (31-37) Red Cell Distribution Width 18.3 % (11.5-14.5) Platelet Count 424 x10^3/uL (140-400) Neutrophils (%) (Auto) 73 % (31-73) Lymphocytes (%) (Auto) 22 % (24-48) Monocytes (%) (Auto) 4 % (0-9) Eosinophils (%) (Auto) 1 % (0-3) Basophils (%) (Auto) 0 % (0-3) Neutrophils # (Auto) 5.8 x10^3/uL (1.8-7.7) Lymphocytes # (Auto) 1.7 x10^3/uL (1.0-4.8) Monocytes # (Auto) 0.3 x10^3/uL (0.0-1.1) Eosinophils # (Auto) 0.1 x10^3/uL (0.0-0.7) Basophils # (Auto) 0.0 x10^3/uL (0.0-0.2) Sodium Level 140 mmol/L (136-145) Potassium Level 3.4 mmol/L (3.5-5.1) Chloride Level 106 mmol/L (98-107) Carbon Dioxide Level 25 mmol/L (21-32) Anion Gap 9 (6-14) Blood Urea Nitrogen 23 mg/dL (7-20) Creatinine 0.7 mg/dL (0.6-1.0) Estimated GFR (Cockcroft-Gault) 88.9 BUN/Creatinine Ratio 33 (6-20) Glucose Level 121 mg/dL (70-99) Calcium Level 9.0 mg/dL (8.5-10.1) Magnesium Level 1.7 mg/dL (1.8-2.4) Total Bilirubin 0.6 mg/dL (0.2-1.0) Aspartate Amino Transf (AST/SGOT) 18 U/L (15-37) Alanine Aminotransferase (ALT/SGPT) 27 U/L (14-59) Alkaline Phosphatase 110 U/L (46-116) Total Protein 4.5 g/dL (6.4-8.2) Albumin 1.0 g/dL (3.4-5.0) Albumin/Globulin Ratio 0.3 (1.0-1.7) Test 10/05/19 07:45 O2 Saturation 98 % (92-99) Arterial Blood pH 7.47 (7.35-7.45) Arterial Blood pCO2 at Patient Temp 27 mmHg (35-46) Arterial Blood pO2 at Patient Temp 109 mmHg (75-108) Arterial Blood HCO3 19 mmol/L (21-28) Arterial Blood Base Excess -4 mmol/L (-3-3) FiO2 35 Medications Active Scripts Medications Dose Route/Sig Max Daily Dose Days Date Category Bisoprolol Fumarate 5 Mg Tablet 10 Mg PO DAILY 07/04/19 Reported Comments CXR 10/[address] abdomen /pelvis 09/23 1. Removal of the percutaneous pigtail drainage catheters since the prior exam. Sequela of pancreatitis with extensive pseudocysts again demonstrated, the right-sided collections are slightly larger since the prior exam, the left-sided collections are stable. See above. 2. Moderate to large left pleural effusion with atelectasis and collapse of most of the left lower lobe, stable. Small right pleural effusion is stable. 3. Gallstone. ct chest 10/02 reviewed Impression . IMPRESSION: 1. Acute hypoxemic respiratory failure secondary to ARDS status post trach, developed anemia 09/24, blood drainage from RLQ abdomen drain site, and surrounding firmness / developed septic shock 09/24 from abdomen source, required levo 09/24 s/p 3 new drains 09/24 with brown color drainage, back on vent 09/30, off vent since 10/02. back on vent this am 2. Gallstone pancreatitis, now with ongoing bleeding from prior drain. Anemic. s/p Tx multiple units over several days 3. septic shock/sepsis, recurrent 09/24, source abdomen. , off levo now, 4. Acute kidney injury-, Off HD--renal function decling. suspect JUANA on CKD due to hypotension , improved now 5. Acute gallstone pancreatitis. 6. Hypoalbuminemia. 7. Moderate persistent effusions, s/p left thora 08/29, reaccumulation of left effusion. O2 requirement not changed. 8. Fever- ,hypotension. suspect recurrent sepsis/ likely pancreatic source. Per ID, per surgery-- 9. Chronic anemia-- ongoing / s/p PRBC 10. Covid 19 testing negative 11. Moderate to large ascites-S/P paracentisis 12.S/P paracentisis with 4 liters removed on 08/03/19 13. S/P IR drain placement on 08/26/2019, removal, re inserted 09/24 14. Depression/Anxiety 15. Increase left effusion, ? loculated/ s/p left chest tube.. increase right effusion Plan . 1. AC mode. follow results of thoracentesis, titrate fio2 to keep sat 94%, cont vent support. 2. Follow all cultures/ PSA from pelvic drains. Abx per ID 3. Follow surgery recs-- Acute pancreatitis with persistent necrosis ---- 08/14 status post KAYLIN drain placement + C paropsilosis; 08/23 + yeast & high amylase; s/p additional drains on 08/25, removal of drains and now increase pseudocyst and increase fluid collection. likely infected fluid/ sepsis. on BS abx.follow surgery rec, planning surgical intervention next few weeks 4. Follow ID recs for ABX---- 5. Follow nephrology recs ----- 6. Continue TPN 7. monitor HGB, 4 units since 09/23--monitor HGB transfuse if less than 8.5 8 s/p thoracentesis, 08/29, 3 litres removed, 10/02. 800 cc so far. Monitor chest tube 9. Pt remains critically ill from severe necrotic pancreatis. Even with surgery prognosis grim. Surgery informed family. DVT/GI PPX: protonix--- holding lovenox 2/2 anemia PT/OT D/W RN, rt and d/w ID critically ill cc time 30 min no overlap VINAYAK LANDRUM MD Oct 05, 2019 11:06
--- NOTE | 2019-10-05 11:28 | NUR ---
TPA given through KAYLIN drains per IR. Post TPA, the left KAYLIN had brown fluid back, removed the same amount of fluid as infused. The middle KAYLIN had brown fluid and had more fluid than infused. The right had 3 cc brown fluid back. Will monitor for more output and for bleeding.
--- NOTE | 2019-10-05 12:29 | RAD ---
Single view of the chest. 10/05/2019 6:07 AM Indication: Reason: effusion / Spl. Instructions: / History: Comparison: Chest radiograph October 02, 2019 Findings: There is a new left-sided thoracostomy tube. Left pleural effusion has decreased. Possible small residual left pleural effusion versus basal atelectasis is seen. There is a small to moderate right pleural effusion. Lung volumes are low. Cardiomediastinal silhouette is similar. Tracheostomy tube is in place. Enteric tube projects over the proximal stomach. There is a left upper extremity PICC line. There is no pneumothorax. There is no acute osseous change. IMPRESSION: 1.New left thoracostomy tube with decreased left pleural effusion. 2. Otherwise similar radiographic appearance of the chest with low lung volumes and small to moderate right pleural effusion, and residual small left pleural effusion and basilar atelectasis. Electronically signed by: Bobby Nobles MD (10/05/2019 12:26 PM) [id number]
[2019-10-05] MEDS: ONDANSETRON PF 4 MG/2 ML VIAL. IV PRN ×3 (14:15→23:20)
--- NOTE | 2019-10-05 15:01 | NUR ---
RN notified by PT that patient was probably needing suctioned. RN seen patient coughing on ventilator and struggling. Patient HOB was elevated and pt was deep suctioned and shortly after patient had one episode of emesis which was small amount of green liquid. Patients oral cavity was suctioned with lots of green liquid fluids being suctioned out. Patient was nauseous and zofran was given. Around 5 minutes later patient was comfortable and sleeping while reporting no more feelings of needing to vomit. Patient remained elevated in bed and will continue to be monitored for anymore episodes.
--- NOTE | 2019-10-05 16:28 | PDOC ---
Provider Note Provider Note DAKOTA Servin mother at bedside no new issues per RN continue supportive care Justicifation of Admission Dx: Justifications for Admission: Justification of Admission Dx: Yes MARV WYNNE MD Oct 05, 2019 16:28
[2019-10-05] MEDS ORDERED: DEXTROSE 70% IV SCH ×8 (22:00)
[2019-10-05] MEDS ORDERED: TOTAL PARENTERAL NUTRITION IV SCH ×8 (22:00)
[2019-10-05] MEDS ORDERED: [UNRECOGNIZED DRUG - OTHER] IV SCH ×8 (22:00)
[2019-10-05] MEDS ORDERED: AMINO ACID IV SCH ×8 (22:00)
[2019-10-06] VITALS (25 sets, daily range): BP systolic 87–172; BP diastolic 50–72
[2019-10-06] MEDS: INSULIN LISPRO 300 UNITS/3 ML VIAL. SQ SCH ×4 (01:20→18:00)
[2019-10-06] MEDS: IPRATRPIUM/ALBUTEROL 0.5/2.5MG 3 ML NEBU. NEB SCH ×5 (04:35→20:00)
[2019-10-06 06:36] LABS: BASO % 0 % (0-3); EOS # 0.1 x10^3/uL (0.0-0.7); EOS % 1 % (0-3); HEMOGLOBIN 8.7 g/dL (12.0-15.5); LYMPH # 1.3 x10^3/uL (1.0-4.8); LYMPH % 13 % (24-48); MEAN CORPUSCULAR HEMOGLOBIN 28 pg (25-35); MEAN CORPUSCULAR HGB CONC 33 g/dL (31-37); MEAN CORPUSCULAR VOLUME 85 fL (79-100); MONO # 0.4 x10^3/uL (0.0-1.1); MONO % 5 % (0-9); NEUT # 8.1 x10^3/uL (1.8-7.7); NEUT % 81 % (31-73); PLATELET COUNT 469 x10^3/uL (140-400); RED BLOOD COUNT 3.06 x10^6/uL (3.50-5.40); RED CELL DISTRIBUTION WIDTH 18.2 % (11.5-14.5)
[2019-10-06 06:37] LABS: CALCIUM 8.8 mg/dL (8.5-10.1); CREATININE 0.6 mg/dL (0.6-1.0); GFR 106.3; MAGNESIUM 1.7 mg/dL (1.8-2.4); POTASSIUM 3.8 mmol/L (3.5-5.1)
--- NOTE | 2019-10-06 07:28 | PDOC ---
Infectious Disease Note Subjective Subjective Doing ok. A little nausea at times. pain ok Continues to have blood stained drainage from drains no fevers last 24 hours Vital Sign Vital Signs Vital Signs Date Time Temp Pulse Resp B/P (MAP) Pulse Ox O2 Delivery O2 Flow Rate FiO2 10/06/19 04:35 100 Ventilator 10/06/19 04:00 10/06/19 02:00 100 20 10/06/19 00:00 99.1 99.1 Physical Exam PHYSICAL EXAM GENERAL: More Alert and looks comfortable HEENT: NGT in place. Oral mucosa dry NECK: Tracheostomy LUNGS: Diminished aeration bases, no accessory muscle use - CT on left with clear fluid HEART: S1, S2, tachy, regular ABDOMEN: Mild distention, bowel sounds present, soft, grimaces to palpation Right lateral side drainage bag, 3 drains with bloodstained drainage. Left side with drainage from previous drain site - dressed - clean and dry : Lind ( 09/24) EXTREMITIES: Trace edema .no cyanosis. Mild erythema on RUE SKIN: no signs of gen rash JAILOR: Lethargic very weak LUE-PICC (09/15) without signs of complications - art line without complications Labs Lab Laboratory Tests Test 10/05/19 07:45 10/05/19 11:59 10/05/19 18:34 10/06/19 01:35 O2 Saturation 98 % (92-99) Arterial Blood pH 7.47 (7.35-7.45) Arterial Blood pCO2 at Patient Temp 27 mmHg (35-46) Arterial Blood pO2 at Patient Temp 109 mmHg (75-108) Arterial Blood HCO3 19 mmol/L (21-28) Arterial Blood Base Excess -4 mmol/L (-3-3) FiO2 35 Glucose (Fingerstick) 146 mg/dL (70-99) 167 mg/dL (70-99) 159 mg/dL (70-99) Test 10/06/19 06:20 White Blood Count 10.0 x10^3/uL (4.0-11.0) Red Blood Count 3.06 x10^6/uL (3.50-5.40) Hemoglobin 8.7 g/dL (12.0-15.5) Hematocrit 26.0 % (36.0-47.0) Mean Corpuscular Volume 85 fL (79-100) Mean Corpuscular Hemoglobin 28 pg (25-35) Mean Corpuscular Hemoglobin Concent 33 g/dL (31-37) Red Cell Distribution Width 18.2 % (11.5-14.5) Platelet Count 469 x10^3/uL (140-400) Neutrophils (%) (Auto) 81 % (31-73) Lymphocytes (%) (Auto) 13 % (24-48) Monocytes (%) (Auto) 5 % (0-9) Eosinophils (%) (Auto) 1 % (0-3) Basophils (%) (Auto) 0 % (0-3) Neutrophils # (Auto) 8.1 x10^3/uL (1.8-7.7) Lymphocytes # (Auto) 1.3 x10^3/uL (1.0-4.8) Monocytes # (Auto) 0.4 x10^3/uL (0.0-1.1) Eosinophils # (Auto) 0.1 x10^3/uL (0.0-0.7) Basophils # (Auto) 0.0 x10^3/uL (0.0-0.2) Sodium Level 137 mmol/L (136-145) Potassium Level 3.8 mmol/L (3.5-5.1) Chloride Level 106 mmol/L (98-107) Carbon Dioxide Level 24 mmol/L (21-32) Anion Gap 7 (6-14) Blood Urea Nitrogen 20 mg/dL (7-20) Creatinine 0.6 mg/dL (0.6-1.0) Estimated GFR (Cockcroft-Gault) 106.3 Glucose Level 137 mg/dL (70-99) Calcium Level 8.8 mg/dL (8.5-10.1) Magnesium Level 1.7 mg/dL (1.8-2.4) Micro 6/7 GRAM STAIN Final Final GRAM NEGATIVE RODS:MODERATE SQUAMOUS EPI CELL:NOT APPLICABLE PMN (WBCs):RARE YEAST:MODERATE Unless otherwise specified, Testing Performed by: [address] [address] For Inquires, the Physician may contact the Microbiology department at [phone] ANAEROBIC-AEROBIC CULTURE Preliminary Preliminary MANY GRAM NEGATIVE RODS on 09/27/19 at 1154 FINAL ID= [[email or web address]] PSEUDOMONAS AERUGINOSA ANTIMICROBIAL SUSCEPTIBILITY Preliminary Comment NEG ALEXANDRA 56 PSEUDOMONAS AERUGINOSA ANTIBIOTIC RESULT INTERPRETATION AMIKACIN <=16 S AZTREONAM >16 R CEFTAZIDIME >16 R CIPROFLOXACIN <=0.25 S CEFEPIME 16 I CEFTAZIDIME/AVIBACTAM <=4 S GENTAMICIN <=2 S CONTINUED ON NEXT PAGE RUN DATE: 09/29/19 [facility] *LIVE* PAGE 2 RUN TIME: 1016 Specimen Inquiry SPEC: [id number] PATIENT: POLOSCOTT [id number] (Continued) Procedure Result ------ ------ ANTIMICROBIAL SUSCEPTIBILITY Preliminary (continued) LEVOFLOXACIN <=0.5 S MEROPENEM <=1 S PIPERACILLIN/TAZOBACTAM 64 S TOBRAMYCIN <=2 S Unless otherwise specified, Testing Performed by: [address] [address] For Inquires, the Physician may contact the Microbiology department at [phone] CT Scan 09/23 IMPRESSION: 1. Removal of the percutaneous pigtail drainage catheters since the prior exam. Sequela of pancreatitis with extensive pseudocysts again demonstrated, the right-sided collections are slightly larger since the prior exam, the left-sided collections are stable. See above. 2. Moderate to large left pleural effusion with atelectasis and collapse of most of the left lower lobe, stable. Small right pleural effusion is stable. 3. Gallstone. Objective Assessment Patient with prolonged hospitalization Multiple medical problems Multiple surgical procedures S/p CT on left 10/02 890 ml overnight 09/24 fluid cult PSAE (MDRO),yeast moderate s/p drain times three R Cefepime, Zosyn ALEXANDRA < 64 - getting Tpa to some CXR with Left lung white-out 09/30 ? effusion PSA 10/02 in sputum I Meropenem Acute hypoxic resp failure on 35 % and 5 PEEP Transaminitis - mild Fever improving Acute pancreatitis with persistent necrosis CT a/p 07/27 Increased ascites. 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 Sequela of pancreatitis with extensive pseudocysts again demonstrated, the right-sided collections are slightly larger since the prior exam, the left-sided collections are stable. Cholelithiasis with thickening of the gallbladder wall. Leucocytosis - better JUANA,Hyperkalemia, Metabolic acidosis off dialysis Acute hypoxic resp failure ,bilateral pleural effusion and atelectasis hypocalcemia Prediabetes HTN s/p trach S/p thoracenteis 08/29 Plan Plan of Care Consider d/c art- line placed 09/24 Monitor RUE mild erythema Fluid balance per primary - up close to 14 kg Sputum from 09/30 - growing PSA - may be colonization I to Meropenem and clinically stable from resp standpoint. Will try to not treat so as to conserve abx and avoid resistance but if worsens will add Cipro Continue meropenem, has MDRP PSAE September 24 from abd cont micafungin September 24 Follow-up cultures fluid for yeast IR eval abd drains Monitor a.m. labs - CMP/CBC General surgery following Monitor drain output Maintain aspiration precaution Supportive care [facility] micro [phone] Critically ill D/w nursing WILLY BARAKAT MD Oct 06, 2019 07:28
[2019-10-06] MEDS: ACETYLCYSTEINE 20% for RESP TX 600 MG/3 ML. NEB SCH ×2 (07:49→20:03)
[2019-10-06 08:07] LABS: BASE EXCESS ABG -2 mmol/L (-3-3); HCO3 ABG 21 mmol/L (21-28); PCO2 ABG 28 mmHg (35-46); PO2 ABG 116 mmHg (75-108); SAT O2 ABG 98 % (92-99)
[2019-10-06 08:09] LABS: FIO2 ABG 35%
[2019-10-06] MEDS: PANTOPRAZOLE IV PUSH 40 MG VIAL. IVP SCH (08:15)
[2019-10-06] MEDS: MEROPENEM 1 GM in IV NORMAL SALINE 100ML 100 ML IV SCH ×2 (08:17→22:23)
--- NOTE | 2019-10-06 08:29 | RAD ---
PORTABLE CHEST 1V INDICATION: Reason: Vent, Pleural Effusion 104 / Spl. Instructions: / History: . COMPARISON STUDY: 10/05/2019. FINDINGS: Life Support Devices: Stable tracheostomy, enteric tube, left PICC, left pleural catheter. Lungs: Low lung volume. Improving right basilar opacities. Normal pulmonary vasculature. Pleura: Small bilateral pleural effusions. Heart and Mediastinum: Stable cardiomediastinal silhouette and great vessels. IMPRESSION: 1. Stable life support devices. 2. Improving right basilar opacities. 3. Small bilateral pleural effusions. Electronically signed by: Bry Michel MD (10/06/2019 8:26 AM) [id number]
--- NOTE | 2019-10-06 09:02 | PDOC ---
PROGRESS NOTES Chief Complaint Chief Complaint impression History of Present Illness 48yo F w/ PMHx HTN, prediabetes who presented the emergency room complaints of abdominal pain. Patient described off and on 3 days. She states is constant, described as a squeezing sensation in a band-like distribution. + nausea, vomiting. She denies any fever or diarrhea. Patient denies any abdominal surgical procedures. She stateed is worse with movements, car ride. Pain initially was upper abdomen however now pretty much generalized. Last bowel movement was 07/03/2019. Nothing makes her pain better. Patient denies any shortness of breath. She does state the pain moves into her chest. Denies any headache or visual changes. Lipase 46514, AST 401, ALT 249, Bilirubin 1.4. CT abdomen confirms pancreatic inflammation, peripancreatic fluid and inflammatory changes around the pancreas consistent with pancreatitis. Cholelithiasis and 1.4cm uterine fibroid as well as possible left salpingitis. Admitted for further care impression Acute hypoxic Respiratory failure required mechanical ventilation Tracheostomy bilateral pleural effusions/pulm edema s/p Throacentesis on 10/03/2019 Severe Acute gallstone pancreatitis (not a surgical candidate at this time) with necrosis Acute kidney failure now requiring dialysis Gallstones (Calculus of gallbladder with acute cholecystitis without obstruction) HTN Intractable pain Intractable nausea Covid 19 negative. Acute on chronic anemia EEG: No seizure activityFever - better currently - intermittent could be from underlying pancreatitis blood cults 08/21 - neg so far ? Ileus with vomiting Abd distention - U/S and CT reviewed s/p 0.4 L of opaque, debris-containing ascites was removed 08/23 Acute pancreatitis with persistent necrosis A large fluid collection in the pancreatic bed has slightly decreased in size, described below, the pancreas itself is difficult to visualize, which could be due to necrosis or obscuration of pancreatic parenchyma from the surrounding fluid collection.10/02 - 08/14 status post KAYLIN drain placement + C paropsilosis. s/p additional drains 08/25 Anemia - S/p PRBCs Cholelithiasis with thickening of the gallbladder wall. Leucocytosis improving JUANA, hyperkalemia, Metabolic acidosis off dialysis hypocalcemia Prediabetes HTN s/p trach ESRD on HD Hyperglycemia Moderate to large left pleural effusion with atelectasis and collapse of most of the left lower lobe, stable 10/05 FEVER 101, BLOOD CULTURE X 2 FEN - PPX - SCDs, off lovenox currently, high risk for thrombosis but in light of her recent anemia and need for transfusion the risks do not outweigh benefits at this time. will continue to evaluate on a daily basis FULL CODE Dispo - ICU, critically ill BACK ON VENT 10/04 vent // no distress 37 MIN CC TIME History of Present Illness History of Present Illness 09/25: IR placed drain on 09/24. 4u PRBC after Hb drop. Hb 8.8 today. Off Levophed this morning. T-max 100.3. Much more lethargic today. CXR with left sided diffuse infiltrates. 09/26: Tachycardic overnight into the 140s. NGT clamped. On BIPAP currently. Drains with serosanguinous discharge. WBC 8, Tmax 99.6F. 09/27: Seen on trach shield in ICU. Hypertensive and tachycardic. Labs stable. blood stained drainage from drains. Afebrile. 09/28: Seen on trach shield in ICU. She is a bit confused, drowsy, but when sitting up is conversational and confusion somewhat clears. She is asking for more pain medication. Stable drains, still very tachy.Na 147 09/29: Patient vomited overnight. Aspirated. Tried to pull her trach out, she was told she would without her trach, she said "I know, I just want to go home". Hb 7.6. Afebrile, still very tachycardic. 1055ml out of right sided KAYLIN drain 09/30: Overnight hypoxic, on BIPAP. CXR with left sided white out lung. Significant mucous plug suctioned by RT with improvement in her ABG after 2 hours this morning. Not really active, tired, lethargic. 890ml out of drains past 24 hours. On vent. D/w daughter bedside. 10/01: Still on vent overnight with copious pulmonary drainage on suctioning. Labs stable, UOP stable 1L. Drain output still significant with 1505mL. She has shown her phone password [id number] and made it clear she does not want her daughters to access her phone at this time. 6:15: Patient quite frail, she has had such a lengthy hospital stay that she is certainly depressed and as documented 3 days ago is wanting to go home. Most likely patient is also tired of being hospitalized with an end point no where in sight. Reassurance and encouragement provided during my visit. Plans for thoracentesis later in the day 10/03: No acute events reported overnight, case discussed with nursing staff patient in no acute distress, complaints of the abdomimal pain during my visit, patient is quite depressed, reassurance has been provided, discussed with nursing staff at bedside, replace electrolytes 10/04 off vent / on TS , no distress 10/04 Patient seen and examined ICU BED critically ill concerned about her long-term prognosis Sputum from 09/30 - growing PSA - may be colonization I to Meropenem add Cipro Continue meropenem, has MDRP PSAE September 24 from abd cont micafungin September 24 33 MIN CC TIME Date: Aug 15, 2019 Pre-Op Diagnosis: Necrotizing pancreatitis Post-Op Diagnosis: same Procedure Performed: laparoscopic exploration Surgeon: Renzo Servin Asst: Dr. Arturo Harris Anesthesia Type: GETA plus local Blood Loss: 50 Specimans Obtained: cultures, debris Findings: 1000 cc ascites suctioned off, cultures sent, diffuse debris, obliteration of surgical planes preventing any meaningful exploration 09/22/2019 Patient seen and examined in the ICU She remains critically ill is is extremely weak Chart reviewed Discussed with RN We decided to try some Prozac as she does seem depressed On IV TPN Still has NG tube 09/21/2019 Patient seen and examined in the ICU She remains critically ill We have been trying to hold off on her Ativan for the past 24 hours She is a little more awake but shaky and agitated and anxious seems depressed Discussed with RN Chart reviewed 09/20/2019 Patient seen and examined in the ICU She is a little more alert today but still quite ill Appears clammy and pale and depressed/anxious Discussed with RN Chart reviewed 09/19/2019 Patient seen and examined in the ICU She appears extremely ill She is tachypneic at 35 respirations per minute and tachycardic at 132 bpm She is extremely encephalopathic and shaky She appears clammy Chart reviewed Discussed with RN Prognosis extremely guarded at best 09/18/2019 Patient still in ICU Resting with no apparent distress Chart reviewed 09/17/2019 Patient seen and examined in the ICU She is wiping her face with a cough Discussed with RN Chart reviewed We hope to get her out of the ICU later today if possible 09/16/2019 Patient seen and examined in the ICU once again She is back on NG suction On IV Zosyn Has IV TPN Sedated with Precedex but anxious still Appears somewhat clammy and pale Chart reviewed Discussed with RN She remains critically ill BRIEF OPERATIVE NOTE Pre-Op Diagnosis Pancreatitis with pseudocysts, suspected infection Post-Op Diagnosis same Procedure Performed CT abdominal Drains x 3 Surgeon Tesfaye Anesthesia Type: Conscious Sedation Findings 3 abdominal drains, 14F, with turbid pancreatic fluid and necrotic debris in each. Complications No immediate 08/26: Patient today somewhat restless and having bilious secretions from ET tube, imaging studies ordered, discussed with it sales consultant. Pretty poor prognosis, hopefully is not a fistula, poor surgical candidate. 08/27: Imaging with no acute events, she seems more stable today compared to yesterday. Encouraged as much activity as possible patient at high risk for severe depression. Vitals Vitals Vital Signs Date Time Temp Pulse Resp B/P (MAP) Pulse Ox O2 Delivery O2 Flow Rate FiO2 10/06/19 09:00 112 20 140/56 (84) 100 Ventilator 10/06/19 08:00 100.2 100.2 Physical Exam Physical Exam GENERAL: More Alert and looks comfortable HEENT: NGT in place. Oral mucosa dry NECK: Tracheostomy LUNGS: Diminished aeration bases, no accessory muscle use - CT on left with clear fluid HEART: S1, S2, tachy, regular ABDOMEN: Mild distention, bowel sounds present, soft, grimaces to palpation Right lateral side drainage bag, 3 drains with bloodstained drainage. Left side with drainage from previous drain site - dressed - clean and dry : Lind ( 09/24) EXTREMITIES: Trace edema .no cyanosis. Mild erythema on RUE SKIN: no signs of gen rash HOUSEPERSON: Lethargic very weak LUE-PICC (09/15) without signs of complications - art line without complications General: Oriented X3, Cooperative, No acute distress Heart: Regular rate, Normal S1, Normal S2, No murmurs, Gallops Lungs: Other (diminshed in bases, Rhonci in LLL) Abdomen: Soft, Other (drains in place) Extremities: No clubbing, No cyanosis, No edema, Normal pulses, No tenderness/ swelling Skin: Other (warm, dry) Labs LABS SEX: F EXAM STATUS: ADM IN ORD. PHYSICIAN: WILLY BARAKAT MD REASON: Pleural effusion and f/u abd abscesses PROCEDURE: CT CHEST ABDOMEN PELVIS WO EXAM: CT CHEST, ABDOMEN, AND PELVIS WITHOUT CONTRAST INDICATION: Pleural effusion and follow-up abdominal abscess COMPARISON: CT abdomen and pelvis 09/24/2019 and 09/14/2019. TECHNIQUE: Helical CT imaging performed of the chest, abdomen and pelvis without the use of intravenous contrast. Sagittal and coronal reformats were obtained. One or more of the following individualized dose reduction techniques were utilized for this examination: 1. Automated exposure control 2. Adjustment of the mA and/or kV according to patient size 3. Use of iterative reconstruction technique. FINDINGS: CHEST: Thyroid gland and thoracic inlet: Visualized portion of the thyroid gland is normal. Heart and great vessels: Heart is normal in size. No pericardial effusion. Thoracic aorta is normal in caliber. A left PICC terminates at the superior cavoatrial junction. Mediastinum and jair: No lymphadenopathy. A tracheostomy tube terminates at the level of the clavicular heads. A nasogastric tube terminates in the gastric fundus. Lungs and pleura: Slightly increased moderate to large left pleural effusion, predominantly layering with a small partially loculated component anterolaterally, and consolidation or atelectasis of the entire left lower lobe. Mild opacities in the left upper lobe. There is a small right pleural effusion with mild consolidative opacities, also mildly increased from prior exam. Chest wall and axillae: Bilateral breast implants are noted. No axillary lymphadenopathy. Bones: No acute osseous abnormality. ABDOMEN AND PELVIS: Liver: Liver is normal in size. A 1.2 cm hypodensity in the medial left hepatic lobe is unchanged. Gallbladder/Biliary Tree: Cholelithiasis is unchanged. No biliary duct dilatation. Pancreas: A large fluid collection in the pancreatic bed has slightly decreased in size, described below, the pancreas itself is difficult to visualize, which could be due to necrosis or obscuration of pancreatic parenchyma from the surrounding fluid collection. Evaluation is also limited due to lack of intravenous contrast. There is no gas within the pancreatic bed. Spleen: Grossly normal. Adrenal Glands: Normal. Kidneys/Ureters/Bladder: There is unchanged mild right hydronephrosis. No urolithiasis. Ureters not well visualized due to fluid collections. The left kidney is normal. Bladder is decompressed around a Lind catheter. Reproductive Organs: Uterus is anteverted. No adnexal mass. Stomach, small bowel, and colon: Nasogastric tube terminates in the gastric fundus. Stomach, small bowel, and colon are not well evaluated due to lack of IV and oral contrast and presence of multiple adjacent fluid collections. There is no evidence of bowel obstruction. Vasculature: Abdominal aorta is normal in caliber. Lymph Nodes: No lymphadenopathy. Peritoneum and retroperitoneum: There are multiple large fluid collections throughout the abdomen and pelvis, some of which are likely communicating with each other. The fluid collection in the pancreatic bed involving the lesser sac is slightly smaller, now measuring approximately 12.7 x 4.5 cm at the level of the lesser sac (image 38, series 4), previously 13.4 x 5.5 cm. There is a new pigtail catheter in this fluid collection. This fluid collection likely communicates with a fluid collection involving the right retroperitoneal space and right psoas muscle. This fluid collection measures approximately 10.1 x 9.4 cm, previously 10.3 x 9.7 cm. There is a new pigtail catheter in this collection. A fluid collection in the left paracolic gutter involving the left psoas muscle has slightly decreased in size, this measures 10.4 x 6.7 cm at the level of the inferior left renal pole, previously 11.7 x 6.7 cm. There is a new pleural catheter in this collection. There is a suspected additional fluid collection in the lower midpelvis between loops of bowel and abutting the bladder and uterus, measuring approximately 10.0 x 4.0 cm, unchanged. This could be confirmed by oral contrast to differentiate from a loop of bowel. No definite new fluid collection. There is a persistent small amount of free fluid in the pelvis. No free air. Bones: No acute osseous abnormality. Miscellaneous: Moderate new anasarca. IMPRESSION: 1. Sequela of pancreatitis with extensive pseudocyst/fluid collections throughout the abdomen and pelvis including a large peripancreatic fluid collection and bilateral retroperitoneal collections involving the psoas muscles. Fluid collections are unchanged to minimally decreased from CT 09/24/2019. There are 3 new pigtail drainage catheters in place. IV or oral contrast may be useful to better evaluate, if possible. 2. Slightly increased moderate to large partially loculated left pleural effusion with atelectasis or consolidation of the left lower lobe. Slightly increased small right pleural effusion and mild right pulmonary opacities. 3. Mild right hydronephrosis. 4. Cholelithiasis. 5. New anasarca. Electronically signed by: Kena Foote MD (10/03/2019 10:37 AM) [id number] DICTATED and SIGNED BY: KENA FOOTE MD DATE: 10/03/19 1037 PORTABLE CHEST 1V INDICATION: Reason: Vent, Pleural Effusion 104 / Spl. Instructions: / History: . COMPARISON STUDY: 10/05/2019. FINDINGS: Life Support Devices: Stable tracheostomy, enteric tube, left PICC, left pleural catheter. Lungs: Low lung volume. Improving right basilar opacities. Normal pulmonary vasculature. Pleura: Small bilateral pleural effusions. Heart and Mediastinum: Stable cardiomediastinal silhouette and great vessels. IMPRESSION: 1. Stable life support devices. 2. Improving right basilar opacities. 3. Small bilateral pleural effusions. Electronically signed by: Bill Michel MD (10/06/2019 8:26 AM) [id number] DICTATED and SIGNED BY: BILL MICHEL MD DATE: 10/06/19 0826 Laboratory Tests Test 10/05/19 11:59 10/05/19 18:34 10/06/19 01:35 10/06/19 06:20 Glucose (Fingerstick) 146 mg/dL (70-99) 167 mg/dL (70-99) 159 mg/dL (70-99) White Blood Count 10.0 x10^3/uL (4.0-11.0) Red Blood Count 3.06 x10^6/uL (3.50-5.40) Hemoglobin 8.7 g/dL (12.0-15.5) Hematocrit 26.0 % (36.0-47.0) Mean Corpuscular Volume 85 fL (79-100) Mean Corpuscular Hemoglobin 28 pg (25-35) Mean Corpuscular Hemoglobin Concent 33 g/dL (31-37) Red Cell Distribution Width 18.2 % (11.5-14.5) Platelet Count 469 x10^3/uL (140-400) Neutrophils (%) (Auto) 81 % (31-73) Lymphocytes (%) (Auto) 13 % (24-48) Monocytes (%) (Auto) 5 % (0-9) Eosinophils (%) (Auto) 1 % (0-3) Basophils (%) (Auto) 0 % (0-3) Neutrophils # (Auto) 8.1 x10^3/uL (1.8-7.7) Lymphocytes # (Auto) 1.3 x10^3/uL (1.0-4.8) Monocytes # (Auto) 0.4 x10^3/uL (0.0-1.1) Eosinophils # (Auto) 0.1 x10^3/uL (0.0-0.7) Basophils # (Auto) 0.0 x10^3/uL (0.0-0.2) Sodium Level 137 mmol/L (136-145) Potassium Level 3.8 mmol/L (3.5-5.1) Chloride Level 106 mmol/L (98-107) Carbon Dioxide Level 24 mmol/L (21-32) Anion Gap 7 (6-14) Blood Urea Nitrogen 20 mg/dL (7-20) Creatinine 0.6 mg/dL (0.6-1.0) Estimated GFR (Cockcroft-Gault) 106.3 Glucose Level 137 mg/dL (70-99) Calcium Level 8.8 mg/dL (8.5-10.1) Magnesium Level 1.7 mg/dL (1.8-2.4) Test 10/06/19 08:04 O2 Saturation 98 % (92-99) Arterial Blood pH 7.49 (7.35-7.45) Arterial Blood pCO2 at Patient Temp 28 mmHg (35-46) Arterial Blood pO2 at Patient Temp 116 mmHg (75-108) Arterial Blood HCO3 21 mmol/L (21-28) Arterial Blood Base Excess -2 mmol/L (-3-3) FiO2 35% Assessment and Plan Assessmemt and Plan Problems Medical Problems: (1) Acute pancreatitis Status: Acute (2) Cholelithiasis Status: Acute Comment Review of Relevant I have reviewed the following items kolby (where applicable) has been applied. Labs Laboratory Tests Test 10/04/19 12:19 10/05/19 00:23 10/05/19 06:00 10/05/19 06:13 Glucose (Fingerstick) 145 mg/dL (70-99) 95 mg/dL (70-99) 108 mg/dL (70-99) White Blood Count 8.0 x10^3/uL (4.0-11.0) Red Blood Count 3.14 x10^6/uL (3.50-5.40) Hemoglobin 8.9 g/dL (12.0-15.5) Hematocrit 26.7 % (36.0-47.0) Mean Corpuscular Volume 85 fL (79-100) Mean Corpuscular Hemoglobin 29 pg (25-35) Mean Corpuscular Hemoglobin Concent 34 g/dL (31-37) Red Cell Distribution Width 18.3 % (11.5-14.5) Platelet Count 424 x10^3/uL (140-400) Neutrophils (%) (Auto) 73 % (31-73) Lymphocytes (%) (Auto) 22 % (24-48) Monocytes (%) (Auto) 4 % (0-9) Eosinophils (%) (Auto) 1 % (0-3) Basophils (%) (Auto) 0 % (0-3) Neutrophils # (Auto) 5.8 x10^3/uL (1.8-7.7) Lymphocytes # (Auto) 1.7 x10^3/uL (1.0-4.8) Monocytes # (Auto) 0.3 x10^3/uL (0.0-1.1) Eosinophils # (Auto) 0.1 x10^3/uL (0.0-0.7) Basophils # (Auto) 0.0 x10^3/uL (0.0-0.2) Sodium Level 140 mmol/L (136-145) Potassium Level 3.4 mmol/L (3.5-5.1) Chloride Level 106 mmol/L (98-107) Carbon Dioxide Level 25 mmol/L (21-32) Anion Gap 9 (6-14) Blood Urea Nitrogen 23 mg/dL (7-20) Creatinine 0.7 mg/dL (0.6-1.0) Estimated GFR (Cockcroft-Gault) 88.9 BUN/Creatinine Ratio 33 (6-20) Glucose Level 121 mg/dL (70-99) Calcium Level 9.0 mg/dL (8.5-10.1) Magnesium Level 1.7 mg/dL (1.8-2.4) Total Bilirubin 0.6 mg/dL (0.2-1.0) Aspartate Amino Transf (AST/SGOT) 18 U/L (15-37) Alanine Aminotransferase (ALT/SGPT) 27 U/L (14-59) Alkaline Phosphatase 110 U/L (46-116) Total Protein 4.5 g/dL (6.4-8.2) Albumin 1.0 g/dL (3.4-5.0) Albumin/Globulin Ratio 0.3 (1.0-1.7) Test 10/05/19 07:45 10/05/19 11:59 10/05/19 18:34 10/06/19 01:35 O2 Saturation 98 % (92-99) Arterial Blood pH 7.47 (7.35-7.45) Arterial Blood pCO2 at Patient Temp 27 mmHg (35-46) Arterial Blood pO2 at Patient Temp 109 mmHg (75-108) Arterial Blood HCO3 19 mmol/L (21-28) Arterial Blood Base Excess -4 mmol/L (-3-3) FiO2 35 Glucose (Fingerstick) 146 mg/dL (70-99) 167 mg/dL (70-99) 159 mg/dL (70-99) Test 10/06/19 06:20 10/06/19 08:04 White Blood Count 10.0 x10^3/uL (4.0-11.0) Red Blood Count 3.06 x10^6/uL (3.50-5.40) Hemoglobin 8.7 g/dL (12.0-15.5) Hematocrit 26.0 % (36.0-47.0) Mean Corpuscular Volume 85 fL (79-100) Mean Corpuscular Hemoglobin 28 pg (25-35) Mean Corpuscular Hemoglobin Concent 33 g/dL (31-37) Red Cell Distribution Width 18.2 % (11.5-14.5) Platelet Count 469 x10^3/uL (140-400) Neutrophils (%) (Auto) 81 % (31-73) Lymphocytes (%) (Auto) 13 % (24-48) Monocytes (%) (Auto) 5 % (0-9) Eosinophils (%) (Auto) 1 % (0-3) Basophils (%) (Auto) 0 % (0-3) Neutrophils # (Auto) 8.1 x10^3/uL (1.8-7.7) Lymphocytes # (Auto) 1.3 x10^3/uL (1.0-4.8) Monocytes # (Auto) 0.4 x10^3/uL (0.0-1.1) Eosinophils # (Auto) 0.1 x10^3/uL (0.0-0.7) Basophils # (Auto) 0.0 x10^3/uL (0.0-0.2) Sodium Level 137 mmol/L (136-145) Potassium Level 3.8 mmol/L (3.5-5.1) Chloride Level 106 mmol/L (98-107) Carbon Dioxide Level 24 mmol/L (21-32) Anion Gap 7 (6-14) Blood Urea Nitrogen 20 mg/dL (7-20) Creatinine 0.6 mg/dL (0.6-1.0) Estimated GFR (Cockcroft-Gault) 106.3 Glucose Level 137 mg/dL (70-99) Calcium Level 8.8 mg/dL (8.5-10.1) Magnesium Level 1.7 mg/dL (1.8-2.4) O2 Saturation 98 % (92-99) Arterial Blood pH 7.49 (7.35-7.45) Arterial Blood pCO2 at Patient Temp 28 mmHg (35-46) Arterial Blood pO2 at Patient Temp 116 mmHg (75-108) Arterial Blood HCO3 21 mmol/L (21-28) Arterial Blood Base Excess -2 mmol/L (-3-3) FiO2 35% Laboratory Tests Test 10/05/19 11:59 10/05/19 18:34 10/06/19 01:35 10/06/19 06:20 Glucose (Fingerstick) 146 mg/dL (70-99) 167 mg/dL (70-99) 159 mg/dL (70-99) White Blood Count 10.0 x10^3/uL (4.0-11.0) Red Blood Count 3.06 x10^6/uL (3.50-5.40) Hemoglobin 8.7 g/dL (12.0-15.5) Hematocrit 26.0 % (36.0-47.0) Mean Corpuscular Volume 85 fL (79-100) Mean Corpuscular Hemoglobin 28 pg (25-35) Mean Corpuscular Hemoglobin Concent 33 g/dL (31-37) Red Cell Distribution Width 18.2 % (11.5-14.5) Platelet Count 469 x10^3/uL (140-400) Neutrophils (%) (Auto) 81 % (31-73) Lymphocytes (%) (Auto) 13 % (24-48) Monocytes (%) (Auto) 5 % (0-9) Eosinophils (%) (Auto) 1 % (0-3) Basophils (%) (Auto) 0 % (0-3) Neutrophils # (Auto) 8.1 x10^3/uL (1.8-7.7) Lymphocytes # (Auto) 1.3 x10^3/uL (1.0-4.8) Monocytes # (Auto) 0.4 x10^3/uL (0.0-1.1) Eosinophils # (Auto) 0.1 x10^3/uL (0.0-0.7) Basophils # (Auto) 0.0 x10^3/uL (0.0-0.2) Sodium Level 137 mmol/L (136-145) Potassium Level 3.8 mmol/L (3.5-5.1) Chloride Level 106 mmol/L (98-107) Carbon Dioxide Level 24 mmol/L (21-32) Anion Gap 7 (6-14) Blood Urea Nitrogen 20 mg/dL (7-20) Creatinine 0.6 mg/dL (0.6-1.0) Estimated GFR (Cockcroft-Gault) 106.3 Glucose Level 137 mg/dL (70-99) Calcium Level 8.8 mg/dL (8.5-10.1) Magnesium Level 1.7 mg/dL (1.8-2.4) Test 10/06/19 08:04 O2 Saturation 98 % (92-99) Arterial Blood pH 7.49 (7.35-7.45) Arterial Blood pCO2 at Patient Temp 28 mmHg (35-46) Arterial Blood pO2 at Patient Temp 116 mmHg (75-108) Arterial Blood HCO3 21 mmol/L (21-28) Arterial Blood Base Excess -2 mmol/L (-3-3) FiO2 35% Microbiology 10/03/19 Gram Stain - Final, Resulted 10/03/19 Aerobic and Anaerobic Culture - Preliminary, Resulted 10/01/19 Gram Stain Evaluation - Final, Complete 10/01/19 Respiratory Culture - Final, Complete 10/01/19 Antimicrobic Susceptibility - Final, Complete 09/25/19 Blood Culture - Final, Complete NO GROWTH AFTER 5 DAYS 09/25/19 Urine Culture - Final, Complete 09/17/19 Gram Stain - Final, Complete 09/17/19 Aerobic Culture - Final, Complete Medications Current Medications Sodium Chloride 1,000 ml @ 1,000 mls/hr Q1H IV Last administered on 07/04/19at 03:00; Start 07/04/19 at 03:00; Stop 07/04/19 at 03:59; Status DC Ondansetron HCl (Zofran) 4 mg 1X ONCE IVP Last administered on 07/04/19at 03:27; Start 07/04/19 at 03:00; Stop 07/04/19 at 03:01; Status DC Morphine Sulfate (Morphine Sulfate) 4 mg 1X ONCE IV ; Start 07/04/19 at 03:00; Stop 07/04/19 at 03:01; Status Cancel Ketorolac Tromethamine (Toradol 30mg Vial) 30 mg 1X ONCE IV Last administered on 07/04/19at 02:54; Start 07/04/19 at 03:00; Stop 07/04/19 at 03:01; Status DC Fentanyl Citrate (Fentanyl 2ml Vial) 25 mcg 1X ONCE IVP Last administered on 07/04/19at 03:23; Start 07/04/19 at 03:30; Stop 07/04/19 at 03:31; Status DC Fentanyl Citrate (Fentanyl 2ml Vial) 100 mcg STK-MED ONCE .ROUTE ; Start 07/04/19 at 03:18; Stop 07/04/19 at 03:18; Status DC Iohexol (Omnipaque 350 Mg/ml) 90 ml 1X ONCE IV Last administered on 07/04/19at 03:25; Start 07/04/19 at 03:30; Stop 07/04/19 at 03:31; Status DC Info (CONTRAST GIVEN -- Rx MONITORING) 1 each PRN DAILY PRN MC SEE COMMENTS; Start 07/04/19 at 03:30; Stop 07/06/19 at 03:29; Status DC Hydromorphone HCl (Dilaudid) 0.5 mg 1X ONCE IV Last administered on 07/04/19at 03:55; Start 07/04/19 at 04:30; Stop 07/04/19 at 04:32; Status DC Ondansetron HCl (Zofran) 4 mg PRN Q8HRS PRN IV NAUSEA/VOMITING 1ST CHOICE; Start 07/04/19 at 05:00; Stop 07/04/19 at 09:27; Status DC Morphine Sulfate (Morphine Sulfate) 2 mg PRN Q2HR PRN IV SEVERE PAIN 7-10 Last administered on 07/05/19at 12:26; Start 07/04/19 at 05:00; Stop 07/05/19 at 14:15; Status DC Sodium Chloride 1,000 ml @ 125 mls/hr Q8H IV Last administered on 07/04/19at 20:56; Start 07/04/19 at 05:00; Stop 07/05/19 at 04:59; Status DC Hydromorphone HCl (Dilaudid) 0.5 mg PRN Q3HRS PRN IV SEVERE PAIN 7-10 Last administered on 07/05/19at 10:06; Start 07/04/19 at 05:00; Stop 07/05/19 at 12:01; Status DC Piperacillin Sod/ Tazobactam Sod 4.5 gm/Sodium Chloride 100 ml @ 200 mls/hr 1X ONCE IV Last administered on 07/04/19at 05:44; Start 07/04/19 at 06:00; Stop 07/04/19 at 06:29; Status DC Ondansetron HCl (Zofran) 4 mg PRN Q4HRS PRN IV NAUSEA/VOMITING 1ST CHOICE Last administered on 10/05/19at 23:20; Start 07/04/19 at 09:30 Insulin Human Lispro (HumaLOG) 0-9 UNITS Q6HRS SQ Last administered on 10/05/19at 18:36; Start 07/04/19 at 09:30 Dextrose (Dextrose 50%-Water Syringe) 12.5 gm PRN Q15MIN PRN IV SEE COMMENTS; Start 07/04/19 at 09:30 Pantoprazole Sodium (PROTONIX VIAL for IV PUSH) 40 mg DAILYAC IVP Last administered on 10/06/19at 08:15; Start 07/04/19 at 11:30 Prochlorperazine Edisylate (Compazine) 10 mg PRN Q6HRS PRN IV NAUSEA/VOMITING, 2nd CHOICE Last administered on 10/04/19at 15:49; Start 07/04/19 at 17:45 Atenolol (Tenormin) 100 mg DAILY PO ; Start 07/05/19 at 09:00; Stop 07/04/19 at 20:08; Status DC Metoprolol Tartrate (Lopressor Vial) 2.5 mg Q6HRS IVP Last administered on 07/05/19at 05:51; Start 07/04/19 at 20:15; Stop 07/05/19 at 10:02; Status DC Metoprolol Tartrate (Lopressor Vial) 5 mg Q6HRS IVP Last administered on 07/14/19at 00:12; Start 07/05/19 at 10:15; Stop 07/16/19 at 08:48; Status DC Hydromorphone HCl (Dilaudid) 1 mg PRN Q3HRS PRN IV SEVERE PAIN 7-10 Last administered on 07/11/19at 05:13; Start 07/05/19 at 12:00; Stop 07/19/19 at 00:25; Status DC Lidocaine HCl (Buffered Lidocaine 1%) 3 ml STK-MED ONCE .ROUTE ; Start 07/05/19 at 12:55; Stop 07/05/19 at 12:56; Status DC Albumin Human 500 ml @ 125 mls/hr 1X ONCE IV Last administered on 07/05/19at 14:33; Start 07/05/19 at 14:30; Stop 07/05/19 at 18:32; Status DC Norepinephrine Bitartrate 8 mg/ Dextrose 258 ml @ 17.299 mls/ hr CONT PRN IV PER PROTOCOL Last administered on 08/02/19at 12:48; Start 07/05/19 at 15:30; Stop 08/05/19 at 09:19; Status DC Sodium Chloride 1,000 ml @ 125 mls/hr Q8H IV Last administered on 07/05/19at 21:04; Start 07/05/19 at 16:00; Stop 07/06/19 at 02:42; Status DC Albumin Human 500 ml @ 125 mls/hr PRN BID PRN IV After every 2L NSS & BP < 90mm Last administered on 09/24/19at 11:40; Start 07/05/19 at 16:00 Iohexol (Omnipaque 300 Mg/ml) 60 ml 1X ONCE IV Last administered on 07/05/19at 17:20; Start 07/05/19 at 17:00; Stop 07/05/19 at 17:01; Status DC Info (CONTRAST GIVEN -- Rx MONITORING) 1 each PRN DAILY PRN MC SEE COMMENTS; Start 07/05/19 at 17:00; Stop 07/07/19 at 16:59; Status DC Meropenem 1 gm/ Sodium Chloride 100 ml @ 200 mls/hr Q8HRS IV Last administered on 07/06/19at 05:45; Start 07/05/19 at 20:00; Stop 07/06/19 at 08:48; Status DC Furosemide (Lasix) 40 mg 1X ONCE IVP Last administered on 07/05/19at 22:12; Start 07/05/19 at 22:30; Stop 07/05/19 at 22:31; Status DC Calcium Chloride 1000 mg/Sodium Chloride 110 ml @ 220 mls/hr 1X ONCE IV Last administered on 07/05/19at 22:11; Start 07/05/19 at 22:30; Stop 07/05/19 at 22:59; Status DC Albuterol Sulfate (Ventolin Neb Soln) 2.5 mg 1X ONCE NEB Last administered on 07/06/19at 00:56; Start 07/05/19 at 22:30; Stop 07/05/19 at 22:31; Status DC Insulin Human Regular (HumuLIN R VIAL) 5 unit 1X ONCE IV Last administered on 07/05/19at 22:14; Start 07/05/19 at 22:30; Stop 07/05/19 at 22:31; Status DC Magnesium Sulfate 50 ml @ 25 mls/hr 1X ONCE IV Last administered on 07/06/19at 02:57; Start 07/06/19 at 03:00; Stop 07/06/19 at 04:59; Status DC Calcium Gluconate 1000 mg/Sodium Chloride 110 ml @ 220 mls/hr 1X ONCE IV Last administered on 07/06/19at 02:46; Start 07/06/19 at 03:00; Stop 07/06/19 at 03:29; Status DC Sodium Chloride 1,000 ml @ 200 mls/hr Q5H IV Last administered on 07/06/19at 02:46; Start 07/06/19 at 03:00; Stop 07/06/19 at 10:21; Status DC Calcium Gluconate 1000 mg/Sodium Chloride 110 ml @ 220 mls/hr 1X ONCE IV Last administered on 07/06/19at 03:21; Start 07/06/19 at 03:30; Stop 07/06/19 at 03:59; Status DC Sodium Bicarbonate 50 meq/Sodium Chloride 1,050 ml @ 75 mls/hr Q14H IV Last administered on 07/10/19at 21:10; Start 07/06/19 at 07:30; Stop 07/11/19 at 10:28; Status DC Calcium Gluconate 2000 mg/Sodium Chloride 120 ml @ 220 mls/hr 1X ONCE IV Last administered on 07/06/19at 09:05; Start 07/06/19 at 07:30; Stop 07/06/19 at 0 8:02; Status DC Lidocaine HCl (Xylocaine-Mpf 1% 2ml Vial) 2 ml STK-MED ONCE .ROUTE ; Start 07/06/19 at 08:47; Stop 07/06/19 at 08:47; Status DC Meropenem 500 mg/ Sodium Chloride 50 ml @ 100 mls/hr Q12HR IV Last administered on 07/11/19at 21:01; Start 07/06/19 at 18:00; Stop 07/12/19 at 07:58; Status DC Lidocaine HCl (Buffered Lidocaine 1%) 3 ml STK-MED ONCE .ROUTE ; Start 07/06/19 at 09:46; Stop 07/06/19 at 09:46; Status DC Lidocaine HCl (Buffered Lidocaine 1%) 6 ml 1X ONCE INJ Last administered on at 10:26; Start 07/06/19 at 10:15; Stop 07/06/19 at 10:16; Status DC Info (Tpn Per Pharmacy) 1 each PRN DAILY PRN MC SEE COMMENTS Last administered on 10/05/19at 10:33; Start 07/06/19 at 12:00 Sodium Chloride 1,000 ml @ 1,000 mls/hr Q1H PRN IV hypotension; Start 07/06/19 at 12:07; Stop 07/06/19 at 18:06; Status DC Diphenhydramine HCl (Benadryl) 25 mg 1X PRN PRN IV ITCHING; Start 07/06/19 at 12:15; Stop 07/07/19 at 12:14; Status DC Diphenhydramine HCl (Benadryl) 25 mg 1X PRN PRN IV ITCHING; Start 07/06/19 at 12:15; Stop 07/07/19 at 12:14; Status DC Sodium Chloride 1,000 ml @ 400 mls/hr Q2H30M PRN IV PATENCY; Start 07/06/19 at 12:07; Stop 07/07/19 at 00:06; Status DC Info (PHARMACY MONITORING -- do not chart) 1 each PRN DAILY PRN MC SEE COMMENT S; Start 07/06/19 at 12:15; Stop 07/08/19 at 08:13; Status DC Sodium Chloride 90 meq/Calcium Gluconate 10 meq/ Multivitamins 10 ml/Chromium/ Copper/Manganese/ Seleni/Zn 1 ml/ Total Parenteral Nutrition/Amino Acids/Dextrose/ Fat Emulsion Intravenous 55.005 ml @ 2.292 mls/hr TPN CONT IV ; Start 07/06/19 at 22:00; Stop 07/06/19 at 12:33; Status DC Info (Tpn Per Pharmacy) 1 each PRN DAILY PRN MC SEE COMMENTS; Start 07/06/19 at 12:30; Status UNV Sodium Chloride 90 meq/Calcium Gluconate 10 meq/ Multivitamins 10 ml/Chromium/ Copper/Manganese/ Seleni/Zn 0.5 ml/ Total Parenteral Nutrition/Amino Acids/Dextrose/ Fat Emulsion Intravenous 1,512 ml @ 63 mls/hr TPN CONT IV Last administered on 07/06/19at 22:06; Start 07/06/19 at 22:00; Stop 07/07/19 at 21:59; Status DC Calcium Carbonate/ Glycine (Tums) 500 mg PRN AFTMEALHC PRN PO INDIGESTION; Start 07/06/19 at 17:45; Stop 08/31/19 at 10:25; Status DC Calcium Gluconate (Calcium Gluconate) 2,000 mg 1X ONCE IVP Last administered on 07/07/19at 02:19; Start 07/07/19 at 02:15; Stop 07/07/19 at 02:16; Status DC Calcium Chloride 3000 mg/Sodium Chloride 1,030 ml @ 50 mls/hr [id number] IV Last administered on 07/09/19at 02:17; Start 07/07/19 at 08:00; Stop 07/09/19 at 15:23; Status DC Lorazepam (Ativan Inj) 1 mg PRN Q4HRS PRN IVP ANXIETY / AGITATION, 2nd choic Last administered on 08/05/19at 03:51; Start 07/07/19 at 09:00; Stop 08/05/19 at 09:19; Status DC Sodium Chloride 1,000 ml @ 1,000 mls/hr Q1H PRN IV hypotension; Start 07/07/19 at 08:56; Stop 07/07/19 at 14:55; Status DC Albumin Human 200 ml @ 200 mls/hr 1X PRN PRN IV Hypotension; Start 07/07/19 at 09:00; Stop 07/07/19 at 14:59; Status DC Diphenhydramine HCl (Benadryl) 25 mg 1X PRN PRN IV ITCHING; Start 07/07/19 at 09:00; Stop 07/08/19 at 08:59; Status DC Diphenhydramine HCl (Benadryl) 25 mg 1X PRN PRN IV ITCHING; Start 07/07/19 at 09:00; Stop 07/08/19 at 08:59; Status DC Sodium Chloride 1,000 ml @ 400 mls/hr Q2H30M PRN IV PATENCY; Start 07/07/19 at 08:56; Stop 07/07/19 at 20:55; Status DC Info (PHARMACY MONITORING -- do not chart) 1 each PRN DAILY PRN MC SEE COMMENTS; Start 07/07/19 at 09:00; Status UNV Info (PHARMACY MONITORING -- do not chart) 1 each PRN DAILY PRN MC SEE COMMENTS; Start 07/07/19 at 09:00; Stop 07/08/19 at 08:13; Status DC Digoxin (Lanoxin) 500 mcg 1X ONCE IV Last administered on 07/07/19at 10:04; Start 07/07/19 at 10:00; Stop 07/07/19 at 10:01; Status DC Digoxin (Lanoxin) 125 mcg 1X ONCE IV Last administered on 07/07/19at 17:10; Start 07/07/19 at 18:00; Stop 07/07/19 at 18:01; Status DC Magnesium Sulfate 100 ml @ 25 mls/hr 1X ONCE IV Last administered on 07/07/19at 12:48; Start 07/07/19 at 13:00; Stop 07/07/19 at 16:59; Status DC Sodium Chloride 90 meq/Magnesium Sulfate 10 meq/ Calcium Gluconate 20 meq/ Multivitamins 10 ml/Chromium/ Copper/Manganese/ Seleni/Zn 0.5 ml/ Total Parenteral Nutrition/Amino Acids/Dextrose/ Fat Emulsion Intravenous 1,512 ml @ 63 mls/hr TPN CONT IV Last administered on 07/07/19at 22:25; Start 07/07/19 at 22:00; Stop 07/08/19 at 21:59; Status DC Sodium Chloride 1,000 ml @ 1,000 mls/hr Q1H PRN IV hypotension; Start 07/08/19 at 08:05; Stop 07/08/19 at 14:04; Status DC Albumin Human 200 ml @ 200 mls/hr 1X ONCE IV Last administered on 07/08/19at 08:57; Start 07/08/19 at 08:15; Stop 07/08/19 at 09:14; Status DC Diphenhydramine HCl (Benadryl) 25 mg 1X PRN PRN IV ITCHING; Start 07/08/19 at 08:15; Stop 07/09/19 at 08:14; Status DC Diphenhydramine HCl (Benadryl) 25 mg 1X PRN PRN IV ITCHING; Start 07/08/19 at 08:15; Stop 07/09/19 at 08:14; Status DC Sodium Chloride 1,000 ml @ 400 mls/hr Q2H30M PRN IV PATENCY; Start 07/08/19 at 08:05; Stop 07/08/19 at 20:04; Status DC Info (PHARMACY MONITORING -- do not chart) 1 each PRN DAILY PRN MC SEE COMMENTS; Start 07/08/19 at 08:15; Stop 07/12/19 at 07:57; Status DC Sodium Chloride 90 meq/Potassium Chloride 15 meq/ Potassium Phosphate 10 mmol/ Magnesium Sulfate 10 meq/Calcium Gluconate 20 meq/ Multivitamins 10 ml/Chromium/ Copper/Manganese/ Seleni/Zn 0.5 ml/ Total Parenteral Nutrition/Amino Acids/Dextrose/ Fat Emulsion Intravenous 1,512 ml @ 63 mls/hr TPN CONT IV Last administered on 07/08/19at 21:01; Start 07/08/19 at 22:00; Stop 07/09/19 at 21:59; Status DC Potassium Chloride/Water 100 ml @ 100 mls/hr 1X ONCE IV Last administered on 07/08/19at 14:09; Start 07/08/19 at 14:00; Stop 07/08/19 at 14:59; Status DC Benzocaine (Hurricaine One) 1 spray 1X ONCE MM Last administered on 07/08/19at 16:38; Start 07/08/19 at 14:30; Stop 07/08/19 at 14:31; Status DC Lidocaine HCl (Glydo (Lidocaine) Jelly) 1 ramu 1X ONCE MM Last administered on 07/08/19at 16:38; Start 07/08/19 at 14:30; Stop 07/08/19 at 14:31; Status DC Linezolid/Dextrose 300 ml @ 300 mls/hr Q12HR IV Last administered on 07/14/19at 21:04; Start 07/08/19 at 20:00; Stop 07/15/19 at 07:50; Status DC Acetaminophen (Tylenol) 650 mg PRN Q6HRS PRN PO MILD PAIN / TEMP; Start 07/09/19 at 03:30; Stop 07/09/19 at 03:36; Status DC Acetaminophen (Tylenol) 650 mg PRN Q6HRS PRN PEG MILD PAIN / TEMP Last administered on 08/04/19at 19:56; Start 07/09/19 at 03:36; Stop 08/31/19 at 10:25; Status DC Sodium Chloride 1,000 ml @ 1,000 mls/hr Q1H PRN IV hypotension; Start 07/09/19 at 07:50; Stop 07/09/19 at 13:49; Status DC Albumin Human 200 ml @ 200 mls/hr 1X PRN PRN IV Hypotension; Start 07/09/19 at 08:00; Stop 07/09/19 at 13:59; Status DC Sodium Chloride (Normal Saline Flush) 10 ml 1X PRN PRN IV AP catheter pack; Start 07/09/19 at 08:00; Stop 07/10/19 at 07:59; Status DC Sodium Chloride (Normal Saline Flush) 10 ml 1X PRN PRN IV CLERICAL CAR CHECKER catheter pack; Start 07/09/19 at 08:00; Stop 07/10/19 at 07:59; Status DC Sodium Chloride 1,000 ml @ 400 mls/hr Q2H30M PRN IV PATENCY; Start 07/09/19 at 07:50; Stop 07/09/19 at 19:49; Status DC Info (PHARMACY MONITORING -- do not chart) 1 each PRN DAILY PRN MC SEE COMMENTS; Start 07/09/19 at 08:00; Status UNV Info (PHARMACY MONITORING -- do not chart) 1 each PRN DAILY PRN MC SEE COMMENTS; Start 07/09/19 at 08:00; Stop 07/11/19 at 08:25; Status DC Sodium Chloride 90 meq/Potassium Chloride 15 meq/ Potassium Phosphate 10 mmol/ Magnesium Sulfate 10 meq/Calcium Gluconate 20 meq/ Multivitamins 10 ml/Chromium/ Copper/Manganese/ Seleni/Zn 0.5 ml/ Total Parenteral Nutrition/Amino Acids/Dextrose/ Fat Emulsion Intravenous 1,512 ml @ 63 mls/hr TPN CONT IV Last administered on 07/09/19at 20:57; Start 07/09/19 at 22:00; Stop 07/10/19 at 21:59; Status DC Sodium Chloride 90 meq/Potassium Chloride 15 meq/ Potassium Phosphate 15 mmol/ Magnesium Sulfate 10 meq/Calcium Gluconate 20 meq/ Multivitamins 10 ml/Chromium/ Copper/Manganese/ Seleni/Zn 0.5 ml/ Total Parenteral Nutrition/Amino Acids/Dextrose/ Fat Emulsion Intravenous 1,512 ml @ 63 mls/hr TPN CONT IV ; Start 07/10/19 at 22:00; Stop 07/10/19 at 14:16; Status DC Sodium Chloride 90 meq/Potassium Chloride 15 meq/ Potassium Phosphate 15 mmol/ Magnesium Sulfate 10 meq/Calcium Gluconate 20 meq/ Multivitamins 10 ml/Chromium/ Copper/Manganese/ Seleni/Zn 0.5 ml/ Total Parenteral Nutrition/Amino Acids/Dextrose/ Fat Emulsion Intravenous 1,200 ml @ 50 mls/hr TPN CONT IV ; Start 07/10/19 at 22:00; Stop 07/10/19 at 14:17; Status DC Sodium Chloride 90 meq/Potassium Chloride 15 meq/ Potassium Phosphate 10 mmol/ Magnesium Sulfate 10 meq/Calcium Gluconate 20 meq/ Multivitamins 10 ml/Chromium/ Copper/Manganese/ Seleni/Zn 0.5 ml/ Total Parenteral Nutrition/Amino Acids/D extrose/ Fat Emulsion Intravenous 1,200 ml @ 50 mls/hr TPN CONT IV Last administered on 07/10/19at 23:29; Start 07/10/19 at 22:00; Stop 07/11/19 at 21:59; Status DC Sodium Chloride 1,000 ml @ 1,000 mls/hr Q1H PRN IV hypotension; Start 07/11/19 at 07:28; Stop 07/11/19 at 13:27; Status DC Albumin Human 200 ml @ 200 mls/hr 1X ONCE IV Last administered on 07/11/19at 08:51; Start 07/11/19 at 07:30; Stop 07/11/19 at 08:29; Status DC Diphenhydramine HCl (Benadryl) 25 mg 1X PRN PRN IV ITCHING; Start 07/11/19 at 07:30; Stop 07/12/19 at 07:29; Status DC Diphenhydramine HCl (Benadryl) 25 mg 1X PRN PRN IV ITCHING; Start 07/11/19 at 0 7:30; Stop 07/12/19 at 07:29; Status DC Sodium Chloride 1,000 ml @ 400 mls/hr Q2H30M PRN IV PATENCY; Start 07/11/19 at 07:28; Stop 07/11/19 at 19:27; Status DC Info (PHARMACY MONITORING -- do not chart) 1 each PRN DAILY PRN MC SEE COMMENTS; Start 07/11/19 at 07:30; Stop 07/22/19 at 13:01; Status DC Metronidazole 100 ml @ 100 mls/hr Q6HRS IV Last administered on 07/27/19at 06:26 ; Start 07/11/19 at 08:30; Stop 07/27/19 at 09:58; Status DC Micafungin Sodium 100 mg/Dextrose 100 ml @ 100 mls/hr Q24H IV Last administered on 08/18/19at 08:18; Start 07/11/19 at 09:00; Stop 08/18/19 at 20:58; Status DC Propofol 0 ml @ As Directed STK-MED ONCE IV ; Start 07/11/19 at 07:53; Stop 07/11/19 at 07:53; Status DC Etomidate (Amidate) 20 mg STK-MED ONCE IV ; Start 07/11/19 at 07:53; Stop 07/11/19 at 07:54; Status DC Midazolam HCl (Versed) 5 mg STK-MED ONCE .ROUTE ; Start 07/11/19 at 07:57; Stop 07/11/19 at 07:57; Status DC Fentanyl Citrate 30 ml @ 0 mls/hr CONT PRN IV SEE PROTOCOL Last administered on 08/05/19at 06:12; Start 07/11/19 at 08:15; Stop 08/05/19 at 09:19; Status DC Artificial Tears (Artificial Tears) 1 drop PRN Q1HR PRN OU DRY EYE, 1st choice; Start 07/11/19 at 08:15; Stop 08/17/19 at 05:31; Status DC Midazolam HCl 50 mg/Sodium Chloride 50 ml @ 0 mls/hr CONT PRN IV SEE PROTOCOL Last administered on 07/14/19at 22:39; Start 07/11/19 at 08:15; Stop 07/16/19 at 15:59; Status DC Etomidate (Amidate) 8 mg 1X ONCE IV Last administered on 07/11/19at 08:33; Start 07/11/19 at 08:30; Stop 07/11/19 at 08:31; Status DC Succinylcholine Chloride (Anectine) 120 mg 1X ONCE IV Last administered on 07/11/19at 08:34; Start 07/11/19 at 08:30; Stop 07/11/19 at 08:31; Status DC Midazolam HCl (Versed) 5 mg 1X ONCE IV ; Start 07/11/19 at 08:30; Stop 07/11/19 at 08:31; Status DC Potassium Chloride 15 meq/ Bicarbonate Dialysis Soln w/ out KCl 5,007.5 ml @ 1,000 mls/ hr Q5H1M IV Last administered on 07/12/19at 11:11; Start 07/11/19 at 12:00; Stop 07/12/19 at 11:15; Status DC Potassium Chloride 15 meq/ Bicarbonate Dialysis Soln w/ out KCl 5,007.5 ml @ 1,000 mls/ hr Q5H1M IV Last administered on 07/12/19at 11:12; Start 07/11/19 at 12:00; Stop 07/12/19 at 11:17; Status DC Potassium Chloride 15 meq/ Bicarbonate Dialysis Soln w/ out KCl 5,007.5 ml @ 1,000 mls/ hr Q5H1M IV Last administered on 07/12/19at 11:11; Start 07/11/19 at 12:00; Stop 07/12/19 at 11:19; Status DC Sodium Chloride 90 meq/Potassium Chloride 15 meq/ Potassium Phosphate 10 mmol/ Magnesium Sulfate 10 meq/Calcium Gluconate 20 meq/ Multivitamins 10 ml/Chromium/ Copper/Manganese/ Seleni/Zn 0.5 ml/ Total Parenteral Nutrition/Amino Acids/Dextrose/ Fat Emulsion Intravenous 1,400 ml @ 58.333 mls/ hr TPN CONT IV Last administered on 07/11/19at 21:42; Start 07/11/19 at 22:00; Stop 07/12/19 at 21:59; Status DC Heparin Sodium (Porcine) (Heparin Sodium) 5,000 unit Q8HRS SQ Last administered on 07/16/19at 05:55; Start 07/11/19 at 15:00; Stop 07/16/19 at 13:28; Status DC Meropenem 500 mg/ Sodium Chloride 50 ml @ 100 mls/hr Q6HRS IV Last administered on 07/13/19at 06:00; Start 07/12/19 at 09:00; Stop 07/13/19 at 07:29; Status DC Potassium Phosphate 20 mmol/ Sodium Chloride 106.6667 ml @ 51.667 m... 1X ONCE IV Last administered on 07/12/19at 11:22; Start 07/12/19 at 10:15; Stop 07/12/19 at 12:18; Status DC Acetaminophen (Tylenol Supp) 650 mg PRN Q6HRS PRN WI MILD PAIN / TEMP > 100.3'F Last administered on 09/28/19at 22:16; Start 07/12/19 at 10:30 Potassium Chloride/Water 100 ml @ 100 mls/hr Q1H IV Last administered on 07/12/19at 12:12; Start 07/12/19 at 11:00; Stop 07/12/19 at 12:59; Status DC Potassium Chloride 20 meq/ Bicarbonate Dialysis Soln w/ out KCl 5,010 ml @ 1,000 mls/hr Q5H1M IV Last administered on 07/13/19at 08:48; Start 07/12/19 at 12:00; Stop 07/13/19 at 13:03; Status DC Potassium Chloride 20 meq/ Bicarbonate Dialysis Soln w/ out KCl 5,010 ml @ 1,000 mls/hr Q5H1M IV Last administered on 07/17/19at 14:52; Start 07/12/19 at 11:30; Stop 07/17/19 at 19:59; Status DC Potassium Chloride 20 meq/ Bicarbonate Dialysis Soln w/ out KCl 5,010 ml @ 1,000 mls/hr Q5H1M IV Last administered on 07/17/19at 14:53; Start 07/12/19 at 11:30; Stop 07/17/19 at 19:59; Status DC Sodium Chloride 90 meq/Potassium Chloride 15 meq/ Potassium Phosphate 15 mmol/ Magnesium Sulfate 10 meq/Calcium Gluconate 15 meq/ Multivitamins 10 ml/Chromium/ Copper/Manganese/ Seleni/Zn 0.5 ml/ Total Parenteral Nutrition/Amino Acids/Dextrose/ Fat Emulsion Intravenous 1,400 ml @ 58.333 mls/ hr TPN CONT IV Last administered on 07/12/19at 22:17; Start 07/12/19 at 22:00; Stop 07/13/19 at 21:59; Status DC Cefepime HCl (Maxipime) 2 gm Q12HR IVP Last administered on 07/26/19at 20:56; Start 07/13/19 at 09:00; Stop 07/27/19 at 09:58; Status DC Daptomycin 500 mg/ Sodium Chloride 50 ml @ 100 mls/hr Q48H IV Last administered on 07/29/19at 09:57; Start 07/13/19 at 08:30; Stop 07/29/19 at 10:07; Status DC Lidocaine HCl (Buffered Lidocaine 1%) 3 ml 1X ONCE INJ Last administered on 07/13/19at 10:27; Start 07/13/19 at 10:30; Stop 07/13/19 at 10:31; Status DC Potassium Phosphate 20 mmol/ Sodium Chloride 106.6667 ml @ 51.667 m... 1X ONCE IV Last administered on 07/13/19at 12:51; Start 07/13/19 at 13:00; Stop 07/13/19 at 15:03; Status DC Sodium Chloride 90 meq/Potassium Chloride 15 meq/ Potassium Phosphate 18 mmol/ Magnesium Sulfate 8 meq/Calcium Gluconate 15 meq/ Multivitamins 10 ml/Chromium/ Copper/Manganese/ Seleni/Zn 0.5 ml/ Total Parenteral Nutrition/Amino Acids/Dextrose/ Fat Emulsion Intravenous 1,400 ml @ 58.333 mls/ hr TPN CONT IV Last administered on 07/13/19at 22:16; Start 07/13/19 at 22:00; Stop 07/14/19 at 21:59; Status DC Potassium Chloride 20 meq/ Bicarbonate Dialysis Soln w/ out KCl 5,010 ml @ 1,000 mls/hr Q5H1M IV Last administered on 07/17/19at 14:54; Start 07/13/19 at 16:00; Stop 07/17/19 at 19:59; Status DC Multi-Ingred Cream/Lotion/Oil/ Oint (Artificial Tears Eye Ointment) 1 ramu PRN Q1HR PRN OU DRY EYE, 2nd choice Last administered on 08/01/19at 08:19; Start 07/13/19 at 17:30; Stop 09/21/19 at 14:39; Status DC Sodium Chloride 90 meq/Potassium Chloride 15 meq/ Potassium Phosphate 18 mmol/ Magnesium Sulfate 8 meq/Calcium Gluconate 15 meq/ Multivitamins 10 ml/Chromium/ Copper/Manganese/ Seleni/Zn 0.5 ml/ Total Parenteral Nutrition/Amino Acids/Dextrose/ Fat Emulsion Intravenous 1,400 ml @ 58.333 mls/ hr TPN CONT IV Last administered on 07/14/19at 22:00; Start 07/14/19 at 22:00; Stop 07/15/19 at 21:59; Status DC Albumin Human 500 ml @ 125 mls/hr 1X ONCE IV ; Start 07/14/19 at 14:15; Stop 07/14/19 at 18:14; Status DC Sodium Chloride 90 meq/Potassium Chloride 15 meq/ Potassium Phosphate 18 mmol/ Magnesium Sulfate 8 meq/Calcium Gluconate 15 meq/ Multivitamins 10 ml/Chromium/ Copper/Manganese/ Seleni/Zn 0.5 ml/ Insulin Human Regular 10 unit/ Total Parenteral Nutrition/Amino Acids/Dextrose/ Fat Emulsion Intravenous 1,400 ml @ 58.333 mls/ hr TPN CONT IV Last administered on 07/15/19at 21:43; Start 07/15/19 at 22:00; Stop 07/16/19 at 21:59; Status DC Lidocaine HCl (Buffered Lidocaine 1%) 3 ml STK-MED ONCE .ROUTE ; Start 07/13/19 at 10:00; Stop 07/15/19 at 13:57; Status DC Midazolam HCl 100 mg/Sodium Chloride 100 ml @ 7 mls/hr CONT PRN IV SEE PROTOCOL Last administered on 07/27/19at 15:35; Start 07/16/19 at 16:00; Stop 09/21/19 at 14 :38; Status DC Sodium Chloride 90 meq/Potassium Chloride 15 meq/ Potassium Phosphate 18 mmol/ Magnesium Sulfate 8 meq/Calcium Gluconate 15 meq/ Multivitamins 10 ml/Chromium/ Copper/Manganese/ Seleni/Zn 0.5 ml/ Insulin Human Regular 15 unit/ Total Parenteral Nutrition/Amino Acids/Dextrose/ Fat Emulsion Intravenous 1,400 ml @ 58.333 mls/ hr TPN CONT IV Last administered on 07/16/19at 20:34; Start 07/16/19 at 22:00; Stop 07/17/19 at 21:59; Status DC Info ([facility] Electrolyte Protocol) 1 ea CONT PRN PRN MC PER PROTOCOL; Start 07/17/19 at 13:15 Sodium Chloride 90 meq/Potassium Chloride 15 meq/ Potassium Phosphate 18 mmol/ Magnesium Sulfate 8 meq/Calcium Gluconate 15 meq/ Multivitamins 10 ml/Chromium/ Copper/Manganese/ Seleni/Zn 0.5 ml/ Insulin Human Regular 15 unit/ Total Parenteral Nutrition/Amino Acids/Dextrose/ Fat Emulsion Intravenous 1,400 ml @ 58.333 mls/ hr TPN CONT IV Last administered on 07/17/19at 22:05; Start 07/17/19 at 22:00; Stop 07/18/19 at 21:59; Status DC Potassium Chloride 15 meq/ Bicarbonate Dialysis Soln w/ out KCl 5,007.5 ml @ 1,000 mls/ hr Q5H1M IV Last administered on 07/20/19at 18:14; Start 07/17/19 at 20:00; Stop 07/21/19 at 13:08; Status DC Potassium Chloride 15 meq/ Bicarbonate Dialysis Soln w/ out KCl 5,007.5 ml @ 1,000 mls/ hr Q5H1M IV Last administered on 07/20/19at 18:14; Start 07/17/19 at 20:00; Stop 07/21/19 at 13:08; Status DC Potassium Chloride 15 meq/ Bicarbonate Dialysis Soln w/ out KCl 5,007.5 ml @ 1,000 mls/ hr Q5H1M IV Last administered on 07/20/19at 18:14; Start 07/17/19 at 20:00; Stop 07/21/19 at 13:08; Status DC Iohexol (Omnipaque 240 Mg/ml) 30 ml 1X ONCE PO Last administered on 07/18/19at 11:30; Start 07/18/19 at 11:30; Stop 07/18/19 at 11:33; Status DC Info (CONTRAST GIVEN -- Rx MONITORING) 1 each PRN DAILY PRN MC SEE COMMENTS; Start 07/18/19 at 11:45; Stop 07/20/19 at 11:44; Status DC Sodium Chloride 90 meq/Potassium Chloride 15 meq/ Potassium Phosphate 18 mmol/ Magnesium Sulfate 8 meq/Calcium Gluconate 15 meq/ Multivitamins 10 ml/Chromium/ Copper/Manganese/ Seleni/Zn 0.5 ml/ Insulin Human Regular 15 unit/ Total Parenteral Nutrition/Amino Acids/Dextrose/ Fat Emulsion Intravenous 1,400 ml @ 58.333 mls/ hr TPN CONT IV Last administered on 07/18/19at 21:47; Start 07/18/19 at 22:00; Stop 07/19/19 at 21:59; Status DC Sodium Chloride 90 meq/Potassium Chloride 15 meq/ Potassium Phosphate 18 mmol/ Magnesium Sulfate 8 meq/Calcium Gluconate 15 meq/ Multivitamins 10 ml/Chromium/ Copper/Manganese/ Seleni/Zn 0.5 ml/ Insulin Human Regular 20 unit/ Total Parenteral Nutrition/Amino Acids/Dextrose/ Fat Emulsion Intravenous 1,400 ml @ 58.333 mls/ hr TPN CONT IV Last administered on 07/19/19at 21:36; Start 07/19/19 at 22:00; Stop 07/20/19 at 21:59; Status DC Alteplase, Recombinant (Cathflo For Central Catheter Clearance) 1 mg 1X ONCE INT CAT Last administered on 07/19/19at 20:03; Start 07/19/19 at 19:30; Stop 07/19/19 at 19:46; Status DC Alteplase, Recombinant (Cathflo For Central Catheter Clearance) 1 mg 1X ONCE INT CAT Last administered on 07/19/19at 22:05; Start 07/19/19 at 22:00; Stop 07/19/19 at 22:01; Status DC Sodium Chloride 90 meq/Potassium Chloride 15 meq/ Potassium Phosphate 18 mmol/ Magnesium Sulfate 8 meq/Calcium Gluconate 15 meq/ Multivitamins 10 ml/Chromium/ Copper/Manganese/ Seleni/Zn 0.5 ml/ Insulin Human Regular 20 unit/ Total Parenteral Nutrition/Amino Acids/Dextrose/ Fat Emulsion Intravenous 1,400 ml @ 58.333 mls/ hr TPN CONT IV Last administered on 07/20/19at 21:30; Start 07/20/19 at 22:00; Stop 07/21/19 at 21:59; Status DC Dexmedetomidine HCl 400 mcg/ Sodium Chloride 100 ml @ 0 mls/hr CONT PRN IV ANXIETY / AGITATION Last administered on 09/17/19at 12:57; Start 07/21/19 at 08:15; Stop 09/17/19 at 18:31; Status DC Sodium Chloride 500 ml @ 500 mls/hr 1X PRN PRN IV ELEVATED BP, SEE COMMENTS; Start 07/21/19 at 08:15 Atropine Sulfate (ATROPINE 0.5mg SYRINGE) 0.5 mg PRN Q5MIN PRN IV SEE COMMENTS; Start 07/21/19 at 08:15 Furosemide (Lasix) 20 mg 1X ONCE IVP Last administered on 07/21/19at 08:19; Start 07/21/19 at 08:15; Stop 07/21/19 at 08:16; Status DC Lidocaine HCl (Buffered Lidocaine 1%) 3 ml STK-MED ONCE .ROUTE ; Start 07/21/19 at 08:39; Stop 07/21/19 at 08:39; Status DC Lidocaine HCl (Buffered Lidocaine 1%) 6 ml 1X ONCE INJ Last administered on 07/21/19at 09:05; Start 07/21/19 at 09:00; Stop 07/21/19 at 09:06; Status DC Sodium Chloride 90 meq/Potassium Chloride 15 meq/ Potassium Phosphate 18 mmol/ Magnesium Sulfate 8 meq/Calcium Gluconate 15 meq/ Multivitamins 10 ml/Chromium/ Copper/Manganese/ Seleni/Zn 0.5 ml/ Insulin Human Regular 20 unit/ Total Parenteral Nutrition/Amino Acids/Dextrose/ Fat Emulsion Intravenous 1,400 ml @ 58.333 mls/ hr TPN CONT IV Last administered on 07/21/19at 22:45; Start 07/21/19 at 22:00; Stop 07/22/19 at 21:59; Status DC Sodium Chloride 1,000 ml @ 1,000 mls/hr Q1H PRN IV hypotension; Start 07/22/19 at 07:30; Stop 07/22/19 at 13:29; Status DC Albumin Human 200 ml @ 200 mls/hr 1X PRN PRN IV Hypotension Last administered on 07/22/19at 09:36; Start 07/22/19 at 07:30; Stop 07/22/19 at 13:29; Status DC Sodium Chloride (Normal Saline Flush) 10 ml 1X PRN PRN IV AP catheter pack; Start 07/22/19 at 07:30; Stop 07/22/19 at 21:29; Status DC Sodium Chloride (Normal Saline Flush) 10 ml 1X PRN PRN IV CLERICAL CAR CHECKER catheter pack; Start 07/22/19 at 07:30; Stop 07/23/19 at 07:29; Status DC Sodium Chloride 1,000 ml @ 400 mls/hr Q2H30M PRN IV PATENCY; Start 07/22/19 at 07:30; Stop 07/22/19 at 19:29; Status DC Info (PHARMACY MONITORING -- do not chart) 1 each PRN DAILY PRN MC SEE COMMENTS; Start 07/22/19 at 07:30; Stop 07/22/19 at 13:02; Status DC Info (PHARMACY MONITORING -- do not chart) 1 each PRN DAILY PRN MC SEE COMMENTS; Start 07/22/19 at 07:30; Stop 07/24/19 at 12:45; Status DC Sodium Chloride 90 meq/Potassium Chloride 15 meq/ Potassium Phosphate 10 mmol/ Magnesium Sulfate 8 meq/Calcium Gluconate 15 meq/ Multivitamins 10 ml/Chromium/ Copper/Manganese/ Seleni/Zn 0.5 ml/ Insulin Human Regular 25 unit/ Total Parenteral Nutrition/Amino Acids/Dextrose/ Fat Emulsion Intravenous 1,400 ml @ 58.333 mls/ hr TPN CONT IV Last administered on 07/22/19at 22:19; Start 07/22/19 at 22:00; Stop 07/23/19 at 21:59; Status DC Heparin Sodium (Porcine) (Heparin Sodium) 5,000 unit Q12HR SQ Last administered on 08/14/19at 08:59; Start 07/22/19 at 21:00; Stop 08/14/19 at 10:05; Status DC Ondansetron HCl (Zofran) 4 mg PRN Q6HRS PRN IV NAUSEA/VOMITING; Start 07/25/19 at 07:00; Stop 07/26/19 at 06:59; Status DC Fentanyl Citrate (Fentanyl 2ml Vial) 25 mcg PRN Q5MIN PRN IV MILD PAIN 1-3; Start 07/25/19 at 07:00; Stop 07/26/19 at 06:59; Status DC Fentanyl Citrate (Fentanyl 2ml Vial) 50 mcg PRN Q5MIN PRN IV MODERATE TO SEVERE PAIN; Start 07/25/19 at 07:00; Stop 07/26/19 at 06:59; Status DC Ringer's Solution 1,000 ml @ 30 mls/hr Q24H IV ; Start 07/25/19 at 07:00; Stop 07/25/19 at 18:59; Status DC Lidocaine HCl (Xylocaine-Mpf 1% 2ml Vial) 2 ml PRN 1X PRN ID PRIOR TO IV START; Start 07/25/19 at 07:00; Stop 07/26/19 at 06:59; Status DC Prochlorperazine Edisylate (Compazine) 5 mg PACU PRN PRN IV NAUSEA, MRX1; Start 07/25/19 at 07:00; Stop 07/26/19 at 06:59; Status DC Sodium Chloride 1,000 ml @ 1,000 mls/hr Q1H PRN IV hypotension; Start 07/23/19 at 09:10; Stop 07/23/19 at 15:09; Status DC Albumin Human 200 ml @ 200 mls/hr 1X PRN PRN IV Hypotension Last administered on 07/23/19at 10:10; Start 07/23/19 at 09:15; Stop 07/23/19 at 15:14; Status DC Sodium Chloride 1,000 ml @ 400 mls/hr Q2H30M PRN IV PATENCY; Start 07/23/19 at 09:10; Stop 07/23/19 at 21:09; Status DC Info (PHARMACY MONITORING -- do not chart) 1 each PRN DAILY PRN MC SEE COMMENTS; Start 07/23/19 at 09:15; Stop 07/24/19 at 12:45; Status DC Info (PHARMACY MONITORING -- do not chart) 1 each PRN DAILY PRN MC SEE COMMENTS; Start 07/23/19 at 09:15; Stop 07/24/19 at 12:45; Status DC Sodium Chloride 90 meq/Potassium Chloride 15 meq/ Potassium Phosphate 10 mmol/ Magnesium Sulfate 8 meq/Calcium Gluconate 15 meq/ Multivitamins 10 ml/Chromium/ Copper/Manganese/ Seleni/Zn 0.5 ml/ Insulin Human Regular 25 unit/ Total Parenteral Nutrition/Amino Acids/Dextrose/ Fat Emulsion Intravenous 1,400 ml @ 58.333 mls/ hr TPN CONT IV Last administered on 07/23/19at 22:10; Start 07/23/19 at 22:00; Stop 07/24/19 at 21:59; Status DC Magnesium Sulfate 50 ml @ 25 mls/hr PRN DAILY PRN IV for Mag < 1.7 on am labs Last administered on 10/04/19at 08:21; Start 07/24/19 at 09:15 Sodium Chloride 90 meq/Potassium Chloride 15 meq/ Potassium Phosphate 10 mmol/ Magnesium Sulfate 8 meq/Calcium Gluconate 15 meq/ Multivitamins 10 ml/Chromium/ Copper/Manganese/ Seleni/Zn 0.5 ml/ Insulin Human Regular 25 unit/ Total Parenteral Nutrition/Amino Acids/Dextrose/ Fat Emulsion Intravenous 1,400 ml @ 58.333 mls/ hr TPN CONT IV Last administered on 07/24/19at 21:20; Start 07/24/19 at 22:00; Stop 07/25/19 at 21:59; Status DC Sodium Chloride 1,000 ml @ 1,000 mls/hr Q1H PRN IV hypotension; Start 07/24/19 at 12:23; Stop 07/24/19 at 18:22; Status DC Albumin Human 200 ml @ 200 mls/hr 1X ONCE IV Last administered on 07/24/19at 13:34; Start 07/24/19 at 12:30; Stop 07/24/19 at 13:29; Status DC Diphenhydramine HCl (Benadryl) 25 mg 1X PRN PRN IV ITCHING; Start 07/24/19 at 12:30; Stop 07/25/19 at 12:29; Status DC Diphenhydramine HCl (Benadryl) 25 mg 1X PRN PRN IV ITCHING; Start 07/24/19 at 12:30; Stop 07/25/19 at 12:29; Status DC Info (PHARMACY MONITORING -- do not chart) 1 each PRN DAILY PRN MC SEE COMMENTS; Start 07/24/19 at 12:30; Status Cancel Bupivacaine HCl/ Epinephrine Bitart (Sensorcain-Epi 0.5%-1:[id number] Mpf) 30 ml STK-MED ONCE .ROUTE Last administered on 07/25/19at 11:44; Start 07/25/19 at 11:00; Stop 07/25/19 at 11:01; Status DC Cellulose (Surgicel Fibrillar 1x2) 1 each STK-MED ONCE .ROUTE ; Start 07/25/19 at 11:00; Stop 07/25/19 at 11:01; Status DC Sodium Chloride 90 meq/Potassium Chloride 15 meq/ Potassium Phosphate 10 mmol/ Magnesium Sulfate 12 meq/Calcium Gluconate 15 meq/ Multivitamins 10 ml/Chromium/ Copper/Manganese/ Seleni/Zn 0.5 ml/ Insulin Human Regular 25 unit/ Total Parenteral Nutrition/Amino Acids/Dextrose/ Fat Emulsion Intravenous 1,400 ml @ 58.333 mls/ hr TPN CONT IV Last administered on 07/25/19at 22:24; Start 07/25/19 at 22:00; Stop 07/26/19 at 21:59; Status DC Propofol 20 ml @ As Directed STK-MED ONCE IV ; Start 07/25/19 at 11:07; Stop 07/25/19 at 11:07; Status DC Cellulose (Surgicel Hemostat 4x8) 1 each STK-MED ONCE .ROUTE Last administered on 07/25/19at 11:44; Start 07/25/19 at 11:55; Stop 07/25/19 at 11:56; Status DC Sevoflurane (Ultane) 60 ml STK-MED ONCE IH ; Start 07/25/19 at 12:46; Stop 07/25/19 at 12:46; Status DC Sodium Chloride 1,000 ml @ 1,000 mls/hr Q1H PRN IV hypotension; Start 07/25/19 at 13:51; Stop 07/25/19 at 19:50; Status DC Albumin Human 200 ml @ 200 mls/hr 1X PRN PRN IV Hypotension Last administered on 07/25/19at 14:51; Start 07/25/19 at 14:00; Stop 07/25/19 at 19:59; Status DC Diphenhydramine HCl (Benadryl) 25 mg 1X PRN PRN IV ITCHING; Start 07/25/19 at 14:00; Stop 07/26/19 at 13:59; Status DC Diphenhydramine HCl (Benadryl) 25 mg 1X PRN PRN IV ITCHING; Start 07/25/19 at 14:00; Stop 07/26/19 at 13:59; Status DC Sodium Chloride 1,000 ml @ 400 mls/hr Q2H30M PRN IV PATENCY; Start 07/25/19 at 13:51; Stop 07/26/19 at 01:50; Status DC Info (PHARMACY MONITORING -- do not chart) 1 each PRN DAILY PRN MC SEE COMMENTS; Start 07/25/19 at 14:00; Stop 07/28/19 at 08:16; Status DC Heparin Sodium (Porcine) (Hep Lock Adult) 500 unit STK-MED ONCE IVP ; Start 07/26/19 at 09:29; Stop 07/26/19 at 09:30; Status DC Sodium Chloride 1,000 ml @ 1,000 mls/hr Q1H PRN IV hypotension; Start 07/26/19 at 10:43; Stop 07/26/19 at 16:42; Status DC Sodium Chloride 1,000 ml @ 400 mls/hr Q2H30M PRN IV PATENCY; Start 07/26/19 at 10:43; Stop 07/26/19 at 22:42; Status DC Info (PHARMACY MONITORING -- do not chart) 1 each PRN DAILY PRN MC SEE C OMMENTS; Start 07/26/19 at 10:45; Status UNV Info (PHARMACY MONITORING -- do not chart) 1 each PRN DAILY PRN MC SEE COMMENTS; Start 07/26/19 at 10:45; Status UNV Sodium Chloride 90 meq/Potassium Chloride 15 meq/ Magnesium Sulfate 12 meq/Calcium Gluconate 15 meq/ Multivitamins 10 ml/Chromium/ Copper/Manganese/ Seleni/Zn 0.5 ml/ Insulin Human Regular 25 unit/ Total Parenteral Nutrit ion/Amino Acids/Dextrose/ Fat Emulsion Intravenous 1,400 ml @ 58.333 mls/ hr TPN CONT IV Last administered on 07/26/19at 22:13; Start 07/26/19 at 22:00; Stop 07/27/19 at 21:59; Status DC Sodium Chloride 1,000 ml @ 1,000 mls/hr Q1H PRN IV hypotension; Start 07/27/19 at 07:50; Stop 07/27/19 at 13:49; Status DC Albumin Human 200 ml @ 200 mls/hr 1X ONCE IV ; Start 07/27/19 at 08:00; Stop 07/27/19 at 08:53; Status DC Diphenhydramine HCl (Benadryl) 25 mg 1X PRN PRN IV ITCHING; Start 07/27/19 at 08:00; Stop 07/28/19 at 07:59; Status DC Diphenhydramine HCl (Benadryl) 25 mg 1X PRN PRN IV ITCHING; Start 07/27/19 at 08:00; Stop 07/28/19 at 07:59; Status DC Info (PHARMACY MONITORING -- do not chart) 1 each PRN DAILY PRN MC SEE COMMENTS; Start 07/27/19 at 08:00; Stop 07/28/19 at 08:16; Status DC Albumin Human 50 ml @ 50 mls/hr 1X ONCE IV ; Start 07/27/19 at 08:53; Stop 07/27/19 at 08:56; Status DC Albumin Human 200 ml @ 50 mls/hr PRN 1X PRN IV HYPOTENSION Last administered on 08/02/19at 11:54; Start 07/27/19 at 09:00; Stop 09/08/19 at 11:14; Status DC Meropenem 500 mg/ Sodium Chloride 50 ml @ 100 mls/hr Q12H IV Last administered on 08/16/19at 10:45; Start 07/27/19 at 10:00; Stop 08/16/19 at 12:37; Status DC Sodium Chloride 90 meq/Magnesium Sulfate 12 meq/ Calcium Gluconate 15 meq/ Multivitamins 10 ml/Chromium/ Copper/Manganese/ Seleni/Zn 0.5 ml/ Insulin Human Regular 25 unit/ Total Parenteral Nutrition/Amino Acids/Dextrose/ Fat Emulsion Intravenous 1,400 ml @ 58.333 mls/ hr TPN CONT IV Last administered on 07/27/19at 21:41; Start 07/27/19 at 22:00; Stop 07/28/19 at 21:59; Status DC Sodium Chloride 1,000 ml @ 1,000 mls/hr Q1H PRN IV hypotension; Start 07/28/19 at 07:58; Stop 07/28/19 at 13:57; Status DC Albumin Human 200 ml @ 200 mls/hr 1X PRN PRN IV Hypotension Last administered on 07/28/19at 09:30; Start 07/28/19 at 08:00; Stop 07/28/19 at 13:59; Status DC Sodium Chloride 1,000 ml @ 400 mls/hr Q2H30M PRN IV PATENCY; Start 07/28/19 at 07:58; Stop 07/28/19 at 19:57; Status DC Info (PHARMACY MONITORING -- do not chart) 1 each PRN DAILY PRN MC SEE COMMENTS; Start 07/28/19 at 08:00; Status Cancel Info (PHARMACY MONITORING -- do not chart) 1 each PRN DAILY PRN MC SEE COMMENTS; Start 07/28/19 at 08:15; Status UNV Sodium Chloride 90 meq/Potassium Phosphate 5 mmol/ Magnesium Sulfate 12 meq/Calcium Gluconate 15 meq/ Multivitamins 10 ml/Chromium/ Copper/Manganese/ Seleni/Zn 0.5 ml/ Insulin Human Regular 30 unit/ Total Parenteral Nutrition/Amino Acids/Dextrose/ Fat Emulsion Intravenous 1,400 ml @ 58.333 mls/ hr TPN CONT IV Last administered on 07/28/19at 22:08; Start 07/28/19 at 22:00; Stop 07/29/19 at 21:59; Status DC Linezolid/Dextrose 300 ml @ 300 mls/hr Q12HR IV Last administered on 08/08/19at 20:40; Start 07/29/19 at 11:00; Stop 08/09/19 at 08:10; Status DC Sodium Chloride 90 meq/Potassium Phosphate 15 mmol/ Magnesium Sulfate 12 meq/Calcium Gluconate 15 meq/ Multivitamins 10 ml/Chromium/ Copper/Manganese/ Seleni/Zn 0.5 ml/ Insulin Human Regular 30 unit/ Total Parenteral Nutrition/Amino Acids/Dextrose/ Fat Emulsion Intravenous 1,400 ml @ 58.333 mls/ hr TPN CONT IV Last administered on 07/29/19at 21:49; Start 07/29/19 at 22:00; Stop 07/30/19 at 21:59; Status DC Sodium Chloride 90 meq/Potassium Phosphate 15 mmol/ Magnesium Sulfate 12 meq/Calcium Gluconate 15 meq/ Multivitamins 10 ml/Chromium/ Copper/Manganese/ Seleni/Zn 0.5 ml/ Insulin Human Regular 40 unit/ Total Parenteral Nutrition/Amino Acids/Dextrose/ Fat Emulsion Intravenous 1,400 ml @ 58.333 mls/ hr TPN CONT IV Last administered on 07/30/19at 21:21; Start 07/30/19 at 22:00; Stop 07/31/19 at 21:59; Status DC Sodium Chloride 1,000 ml @ 1,000 mls/hr Q1H PRN IV hypotension; Start 07/30/19 at 13:26; Stop 07/30/19 at 19:25; Status DC Albumin Human 200 ml @ 200 mls/hr 1X PRN PRN IV Hypotension Last administered on 07/30/19at 15:00; Start 07/30/19 at 13:30; Stop 07/30/19 at 19:29; Status DC Sodium Chloride (Normal Saline Flush) 10 ml 1X PRN PRN IV AP catheter pack; Start 07/30/19 at 13:30; Stop 07/31/19 at 13:29; Status DC Sodium Chloride (Normal Saline Flush) 10 ml 1X PRN PRN IV CLERICAL CAR CHECKER catheter pack; Start 07/30/19 at 13:30; Stop 07/31/19 at 13:29; Status DC Sodium Chloride 1,000 ml @ 400 mls/hr Q2H30M PRN IV PATENCY; Start 07/30/19 at 13:26; Stop 07/31/19 at 01:25; Status DC Info (PHARMACY MONITORING -- do not chart) 1 each PRN DAILY PRN MC SEE COMMENTS; Start 07/30/19 at 13:30; Stop 07/30/19 at 13:33; Status DC Info (PHARMACY MONITORING -- do not chart) 1 each PRN DAILY PRN MC SEE COMMENTS; Start 07/30/19 at 13:30; Stop 07/30/19 at 13:34; Status DC Sodium Chloride 90 meq/Potassium Phosphate 19 mmol/ Magnesium Sulfate 12 meq/Calcium Gluconate 15 meq/ Multivitamins 10 ml/Chromium/ Copper/Manganese/ Seleni/Zn 0.5 ml/ Insulin Human Regular 40 unit/ Total Parenteral Nutrition/Amino Acids/Dextrose/ Fat Emulsion Intravenous 1,400 ml @ 58.333 mls/ hr TPN CONT IV Last administered on 07/31/19at 21:54; Start 07/31/19 at 22:00; Stop 08/01/19 at 21:59; Status DC Sodium Chloride 1,000 ml @ 1,000 mls/hr Q1H PRN IV hypotension; Start 08/01/19 at 09:35; Stop 08/01/19 at 15:34; Status DC Albumin Human 200 ml @ 200 mls/hr 1X PRN PRN IV Hypotension; Start 08/01/19 at 09:45; Stop 08/01/19 at 15:44; Status DC Diphenhydramine HCl (Benadryl) 25 mg 1X PRN PRN IV ITCHING; Start 08/01/19 at 09:45; Stop 08/02/19 at 09:44; Status DC Diphenhydramine HCl (Benadryl) 25 mg 1X PRN PRN IV ITCHING; Start 08/01/19 at 09:45; Stop 08/02/19 at 09:44; Status DC Sodium Chloride 1,000 ml @ 400 mls/hr Q2H30M PRN IV PATENCY; Start 08/01/19 at 09:35; Stop 08/01/19 at 21:34; Status DC Info (PHARMACY MONITORING -- do not chart) 1 each PRN DAILY PRN MC SEE COMMENTS; Start 08/01/19 at 09:45; Status Cancel Sodium Chloride 100 meq/Potassium Phosphate 19 mmol/ Magnesium Sulfate 12 meq/Calcium Gluconate 15 meq/ Multivitamins 10 ml/Chromium/ Copper/Manganese/ Se dinorah/Zn 0.5 ml/ Insulin Human Regular 40 unit/ Potassium Chloride 20 meq/ Total Parenteral Nutrition/Amino Acids/Dextrose/ Fat Emulsion Intravenous 1,400 ml @ 58.333 mls/ hr TPN CONT IV Last administered on 08/01/19at 22:02; Start 08/01/19 at 22:00; Stop 08/02/19 at 21:59; Status DC Furosemide (Lasix) 40 mg 1X ONCE IVP Last administered on 08/01/19at 14:39; Start 08/01/19 at 14:30; Stop 08/01/19 at 14:31; Status DC Metronidazole 100 ml @ 100 mls/hr Q8HRS IV Last administered on 08/09/19at 06:04; Start 08/02/19 at 10:00; Stop 08/09/19 at 08:10; Status DC Sodium Chloride 1,000 ml @ 1,000 mls/hr Q1H PRN IV hypotension; Start 08/02/19 at 08:00; Stop 08/02/19 at 13:59; Status DC Albumin Human 200 ml @ 200 mls/hr 1X PRN PRN IV Hypotension; Start 08/02/19 at 08:00; Stop 08/02/19 at 13:59; Status DC Sodium Chloride 1,000 ml @ 400 mls/hr Q2H30M PRN IV PATENCY; Start 08/02/19 at 08:00; Stop 08/02/19 at 19:59; Status DC Info (PHARMACY MONITORING -- do not chart) 1 each PRN DAILY PRN MC SEE COMMENTS; Start 08/02/19 at 11:30; Status UNV Info (PHARMACY MONITORING -- do not chart) 1 each PRN DAILY PRN MC SEE COMMENTS; Start 08/02/19 at 11:30; Stop 08/04/19 at 12:13; Status DC Sodium Chloride 100 meq/Potassium Phosphate 19 mmol/ Magnesium Sulfate 12 meq/Calcium Gluconate 15 meq/ Multivitamins 10 ml/Chromium/ Copper/Manganese/ Seleni/Zn 0.5 ml/ Insulin Human Regular 40 unit/ Potassium Chloride 20 meq/ Total Parenteral Nutrition/Amino Acids/Dextrose/ Fat Emulsion Intravenous 1,400 ml @ 58.333 mls/ hr TPN CONT IV Last administered on 08/02/19at 21:52; Start 08/02/19 at 22:00; Stop 08/03/19 at 21:59; Status DC Sodium Chloride (Normal Saline Flush) 10 ml QSHIFT PRN IV AFTER MEDS AND BLOOD DRAWS; Start 08/02/19 at 15:00; Stop 08/30/19 at 11:27; Status DC Sodium Chloride (Normal Saline Flush) 10 ml PRN Q5MIN PRN IV AFTER MEDS AND BLOOD DRAWS; Start 08/02/19 at 15:00 Sodium Chloride (Normal Saline Flush) 20 ml PRN Q5MIN PRN IV AFTER MEDS AND BLOOD DRAWS; Start 08/02/19 at 15:00 Sodium Chloride 100 meq/Potassium Phosphate 19 mmol/ Magnesium Sulfate 12 meq/Calcium Gluconate 15 meq/ Multivitamins 10 ml/Chromium/ Copper/Manganese/ Seleni/Zn 0.5 ml/ Insulin Human Regular 40 unit/ Potassium Chloride 20 meq/ Total Parenteral Nutrition/Amino Acids/Dextrose/ Fat Emulsion Intravenous 1,400 ml @ 58.333 mls/ hr TPN CONT IV Last administered on 08/03/19at 21:20; Start 08/03/19 at 22:00; Stop 08/04/19 at 21:59; Status DC Lidocaine HCl (Buffered Lidocaine 1%) 3 ml STK-MED ONCE .ROUTE ; Start 08/03/19 at 13:16; Stop 08/03/19 at 13:16; Status DC Lidocaine HCl (Buffered Lidocaine 1%) 6 ml 1X ONCE INJ Last administered on 08/03/19at 13:45; Start 08/03/19 at 13:30; Stop 08/03/19 at 13:31; Status DC Albumin Human 100 ml @ 100 mls/hr 1X ONCE IV Last administered on 08/03/19at 15:41; Start 08/03/19 at 15:00; Stop 08/03/19 at 15:59; Status DC Albumin Human 50 ml @ 50 mls/hr 1X ONCE IV Last administered on 08/03/19at 15:00; Start 08/03/19 at 15:00; Stop 08/03/19 at 15:59; Status DC Info (PHARMACY MONITORING -- do not chart) 1 each PRN DAILY PRN MC SEE COMMENTS; Start 08/04/19 at 11:30; Status Cancel Info (PHARMACY MONITORING -- do not chart) 1 each PRN DAILY PRN MC SEE COMMENTS; Start 08/04/19 at 11:30; Status UNV Sodium Chloride 100 meq/Potassium Phosphate 10 mmol/ Magnesium Sulfate 12 meq/Calcium Gluconate 15 meq/ Multivitamins 10 ml/Chromium/ Copper/Manganese/ Seleni/Zn 0.5 ml/ Insulin Human Regular 35 unit/ Potassium Chloride 20 meq/ Total Parenteral Nutrition/Amino Acids/Dextrose/ Fat Emulsion Intravenous 1,400 ml @ 58.333 mls/ hr TPN CONT IV Last administered on 08/04/19at 22:10; Start 08/04/19 at 22:00; Stop 08/05/19 at 21:59; Status DC Sodium Chloride 100 meq/Potassium Phosphate 5 mmol/ Magnesium Sulfate 12 meq/Calcium Gluconate 15 meq/ Multivitamins 10 ml/Chromium/ Copper/Manganese/ Seleni/Zn 0.5 ml/ Insulin Human Regular 35 unit/ Potassium Chloride 20 meq/ Total Parenteral Nutrition/Amino Acids/Dextrose/ Fat Emulsion Intravenous 1,400 ml @ 58.333 mls/ hr TPN CONT IV Last administered on 08/05/19at 22:59; Start 08/05/19 at 22:00; Stop 08/06/19 at 21:59; Status DC Sodium Chloride 1,000 ml @ 1,000 mls/hr Q1H PRN IV hypotension; Start 08/06/19 at 08:27; Stop 08/06/19 at 14:26; Status DC Albumin Human 200 ml @ 200 mls/hr 1X PRN PRN IV Hypotension Last administered on 08/06/19at 09:18; Start 08/06/19 at 08:30; Stop 08/06/19 at 14:29; Status DC Sodium Chloride 1,000 ml @ 400 mls/hr Q2H30M PRN IV PATENCY; Start 08/06/19 at 08:27; Stop 08/06/19 at 20:26; Status DC Info (PHARMACY MONITORING -- do not chart) 1 each PRN DAILY PRN MC SEE COMMENTS; Start 08/06/19 at 08:30; Status Cancel Info (PHARMACY MONITORING -- do not chart) 1 each PRN DAILY PRN MC SEE COMMENTS; Start 08/06/19 at 08:30; Stop 08/14/19 at 13:10; Status DC Sodium Chloride 100 meq/Potassium Chloride 40 meq/ Magnesium Sulfate 15 meq/Calcium Gluconate 15 meq/ Multivitamins 10 ml/Chromium/ Copper/Manganese/ Seleni/Zn 0.5 ml/ Insulin Human Regular 35 unit/ Total Parenteral Nutrition/Amino Acids/Dextrose/ Fat Emulsion Intravenous 1,400 ml @ 58.333 mls/ hr TPN CONT IV Last administered on 08/06/19at 22:00; Start 08/06/19 at 22:00; Stop 08/07/19 at 21:59; Status DC Potassium Chloride/Water 100 ml @ 100 mls/hr 1X ONCE IV Last administered on 08/06/19at 17:28; Start 08/06/19 at 14:45; Stop 08/06/19 at 15:44; Status DC Sodium Chloride 100 meq/Potassium Chloride 40 meq/ Magnesium Sulfate 15 meq/Calcium Gluconate 15 meq/ Multivitamins 10 ml/Chromium/ Copper/Manganese/ Seleni/Zn 0.5 ml/ Insulin Human Regular 35 unit/ Total Parenteral Nutrition/Amino Acids/Dextrose/ Fat Emulsion Intravenous 1,400 ml @ 58.333 mls/ hr TPN CONT IV Last administered on 08/07/19at 22:46; Start 08/07/19 at 22:00; Stop 08/08/19 at 21:59; Status DC Sodium Chloride 100 meq/Potassium Chloride 40 meq/ Magnesium Sulfate 20 meq/Calcium Gluconate 15 meq/ Multivitamins 10 ml/Chromium/ Copper/Manganese/ Seleni/Zn 0.5 ml/ Insulin Human Regular 35 unit/ Total Parenteral Nu trition/Amino Acids/Dextrose/ Fat Emulsion Intravenous 1,400 ml @ 58.333 mls/ hr TPN CONT IV Last administered on 08/08/19at 22:31; Start 08/08/19 at 22:00; Stop 08/09/19 at 21:59; Status DC Fentanyl Citrate (Fentanyl 2ml Vial) 50 mcg PRN Q2HR PRN IVP PAIN Last administered on 08/15/19at 13:32; Start 08/08/19 at 21:00; Stop 08/16/19 at 12:53; Status DC Fentanyl Citrate (Fentanyl 2ml Vial) 25 mcg PRN Q2HR PRN IVP PAIN; Start 08/08/19 at 21:00; Stop 08/16/19 at 12:54; Status DC Enoxaparin Sodium (Lovenox 100mg Syringe) 100 mg Q12HR SQ ; Start 08/09/19 at 21:00; Status UNV Amino Acids/ Glycerin/ Electrolytes 1,000 ml @ 75 mls/hr [id number] IV ; Start 08/08/19 at 21:15; Status UNV Sodium Chloride 1,000 ml @ 1,000 mls/hr Q1H PRN IV hypotension; Start 08/09/19 at 07:56; Stop 08/09/19 at 13:55; Status DC Albumin Human 200 ml @ 200 mls/hr 1X PRN PRN IV Hypotension Last administered on 08/09/19at 08:40; Start 08/09/19 at 08:00; Stop 08/09/19 at 13:59; Status DC Sodium Chloride 1,000 ml @ 400 mls/hr Q2H30M PRN IV PATENCY; Start 08/09/19 at 07:56; Stop 08/09/19 at 19:55; Status DC Info (PHARMACY MONITORING -- do not chart) 1 each PRN DAILY PRN MC SEE COMMENTS; Start 08/09/19 at 08:00; Status UNV Info (PHARMACY MONITORING -- do not chart) 1 each PRN DAILY PRN MC SEE COMMENTS; Start 08/09/19 at 08:00; Status UNV Daptomycin 430 mg/ Sodium Chloride 50 ml @ 100 mls/hr Q24H IV Last ad ministered on 08/09/19at 12:35; Start 08/09/19 at 09:00; Stop 08/09/19 at 12:49; Status DC Sodium Chloride 100 meq/Potassium Chloride 40 meq/ Magnesium Sulfate 20 meq/Calcium Gluconate 15 meq/ Multivitamins 10 ml/Chromium/ Copper/Manganese/ Seleni/Zn 0.5 ml/ Insulin Human Regular 35 unit/ Total Parenteral Nutrition/Amino Acids/Dextrose/ Fat Emulsion Intravenous 1,400 ml @ 58.333 mls/ hr TPN CONT IV Last administered on 08/09/19at 21:26; Start 08/09/19 at 22:00; Stop 08/10/19 at 21:59; Status DC Daptomycin 430 mg/ Sodium Chloride 50 ml @ 100 mls/hr Q48H IV ; Start 08/11/19 at 09:00; Stop 08/10/19 at 11:55; Status DC Sodium Chloride 100 meq/Potassium Chloride 40 meq/ Magnesium Sulfate 20 meq/Calcium Gluconate 15 meq/ Multivitamins 10 ml/Chromium/ Copper/Manganese/ Seleni/Zn 0.5 ml/ Insulin Human Regular 35 unit/ Total Parenteral Nutrition/Amino Acids/Dextrose/ Fat Emulsion Intravenous 1,400 ml @ 58.333 mls/ hr TPN CONT IV Last administered on 08/10/19at 22:27; Start 08/10/19 at 22:00; Stop 08/11/19 at 21:59; Status DC Daptomycin 430 mg/ Sodium Chloride 50 ml @ 100 mls/hr Q24H IV Last administered on 08/12/19at 15:07; Start 08/10/19 at 13:00; Stop 08/13/19 at 13:15; Status DC Sodium Chloride 100 meq/Potassium Chloride 40 meq/ Magnesium Sulfate 20 meq/Ca lcium Gluconate 10 meq/ Multivitamins 10 ml/Chromium/ Copper/Manganese/ Seleni/Zn 0.5 ml/ Insulin Human Regular 35 unit/ Total Parenteral Nutrition/Amino Acids/Dextrose/ Fat Emulsion Intravenous 1,400 ml @ 58.333 mls/ hr TPN CONT IV Last administered on 08/12/19at 00:06; Start 08/11/19 at 22:00; Stop 08/12/19 at 21:59; Status DC Alteplase, Recombinant (Cathflo For Central Catheter Clearance) 1 mg 1X ONCE INT CAT Last administered on 08/12/19at 11:44; Start 08/12/19 at 10:45; Stop 08/12/19 at 10:46; Status DC Ondansetron HCl (Zofran) 4 mg PRN Q6HRS PRN IV NAUSEA/VOMITING; Start 08/15/19 at 07:00; Stop 08/16/19 at 06:59; Status DC Fentanyl Citrate (Fentanyl 2ml Vial) 25 mcg PRN Q5MIN PRN IV MILD PAIN 1-3; Start 08/15/19 at 07:00; Stop 08/16/19 at 06:59; Status DC Fentanyl Citrate (Fentanyl 2ml Vial) 50 mcg PRN Q5MIN PRN IV MODERATE TO SEVERE PAIN Last administered on 08/15/19at 10:17; Start 08/15/19 at 07:00; Stop 08/16/19 at 06:59; Status DC Ringer's Solution 1,000 ml @ 30 mls/hr Q24H IV ; Start 08/15/19 at 07:00; Stop 08/15/19 at 18:59; Status DC Lidocaine HCl (Xylocaine-Mpf 1% 2ml Vial) 2 ml PRN 1X PRN ID PRIOR TO IV START; Start 08/15/19 at 07:00; Stop 08/16/19 at 06:59; Status DC Prochlorperazine Edisylate (Compazine) 5 mg PACU PRN PRN IV NAUSEA, MRX1; Start 08/15/19 at 07:00; Stop 08/16/19 at 06:59; Status DC Sodium Acetate 50 meq/Potassium Acetate 55 meq/ Magnesium Sulfate 20 meq/Calcium Gluconate 10 meq/ Multivitamins 10 ml/Chromium/ Copper/Manganese/ Seleni/Zn 0.5 ml/ Insulin Human Regular 35 unit/ Total Parenteral Nutrition/Amino Acids/Dextrose/ Fat Emulsion Intravenous 1,400 ml @ 58.333 mls/ hr TPN CONT IV ; Start 08/12/19 at 22:00; Stop 08/12/19 at 14:15; Status DC Sodium Acetate 50 meq/Potassium Acetate 55 meq/ Magnesium Sulfate 20 meq/Calcium Gluconate 10 meq/ Multivitamins 10 ml/Chromium/ Copper/Manganese/ Seleni/Zn 0.5 ml/ Insulin Human Regular 35 unit/ Total Parenteral Nutrition/Amino Acids/Dextrose/ Fat Emulsion Intravenous 1,800 ml @ 75 mls/hr TPN CONT IV Last administered on 08/12/19at 22:38; Start 08/12/19 at 22:00; Stop 08/13/19 at 21:59; Status DC Sodium Chloride 1,000 ml @ 1,000 mls/hr Q1H PRN IV hypotension; Start 08/12/19 at 15:31; Stop 08/12/19 at 21:30; Status DC Diphenhydramine HCl (Benadryl) 25 mg 1X PRN PRN IV ITCHING; Start 08/12/19 at 15:45; Stop 08/13/19 at 15:44; Status DC Diphenhydramine HCl (Benadryl) 25 mg 1X PRN PRN IV ITCHING; Start 08/12/19 at 15:45; Stop 08/13/19 at 15:44; Status DC Sodium Chloride 1,000 ml @ 400 mls/hr Q2H30M PRN IV PATENCY; Start 08/12/19 at 15:31; Stop 08/13/19 at 03:30; Status DC Info (PHARMACY MONITORING -- do not chart) 1 each PRN DAILY PRN MC SEE COMMENTS; Start 08/12/19 at 15:45; Stop 09/13/19 at 14:14; Status DC Sodium Acetate 50 meq/Potassium Acetate 55 meq/ Magnesium Sulfate 20 meq/Calcium Gluconate 10 meq/ Multivitamins 10 ml/Chromium/ Copper/Manganese/ Seleni/Zn 0.5 ml/ Insulin Human Regular 35 unit/ Total Parenteral Nutrition/Amino Acids/Dextrose/ Fat Emulsion Intravenous 1,800 ml @ 75 mls/hr TPN CONT IV Last administered on 08/13/19at 22:03; Start 08/13/19 at 22:00; Stop 08/14/19 at 21:59; Status DC Daptomycin 430 mg/ Sodium Chloride 50 ml @ 100 mls/hr Q24H IV Last administered on 08/18/19at 13:00; Start 08/13/19 at 13:00; Stop 08/18/19 at 20:58; Status DC Heparin Sodium (Porcine) 1000 unit/Sodium Chloride 1,001 ml @ 1,001 mls/hr 1X ONCE IRR ; Start 08/15/19 at 06:00; Stop 08/15/19 at 06:59; Status DC Potassium Acetate 55 meq/Magnesium Sulfate 20 meq/ Calcium Gluconate 10 meq/ Multivitamins 10 ml/Chromium/ Copper/Manganese/ Seleni/Zn 0.5 ml/ Insulin Human Regular 35 unit/ Total Parenteral Nutrition/Amino Acids/Dextrose/ Fat Emulsion I ntravenous 1,920 ml @ 80 mls/hr TPN CONT IV Last administered on 08/14/19at 22:10; Start 08/14/19 at 22:00; Stop 08/15/19 at 21:59; Status DC Dexamethasone Sodium Phosphate (Decadron) 4 mg STK-MED ONCE .ROUTE ; Start 08/15/19 at 10:56; Stop 08/15/19 at 10:57; Status DC Ondansetron HCl (Zofran) 4 mg STK-MED ONCE .ROUTE ; Start 08/15/19 at 10:56; Stop 08/15/19 at 10:57; Status DC Rocuronium [place] (Zemuron) 50 mg STK-MED ONCE .ROUTE ; Start 08/15/19 at 10:56; Stop 08/15/19 at 10:57; Status DC Fentanyl Citrate (Fentanyl 2ml Vial) 100 mcg STK-MED ONCE .ROUTE ; Start 08/15/19 at 10:56; Stop 08/15/19 at 10:57; Status DC Bupivacaine HCl/ Epinephrine Bitart (Sensorcain-Epi 0.5%-1:[id number] Mpf) 30 ml STK-MED ONCE .ROUTE Last administered on 08/15/19at 12:01; Start 08/15/19 at 10:58; Stop 08/15/19 at 10:58; Status DC Cellulose (Surgicel Hemostat 2x14) 1 each STK-MED ONCE .ROUTE ; Start 08/15/19 at 10:58; Stop 08/15/19 at 10:59; Status DC Iohexol (Omnipaque 300 Mg/ml) 50 ml STK-MED ONCE .ROUTE ; Start 08/15/19 at 10:58; Stop 08/15/19 at 10:59; Status DC Cellulose (Surgicel Hemostat 4x8) 1 each STK-MED ONCE .ROUTE ; Start 08/15/19 at 10:58; Stop 08/15/19 at 10:59; Status DC Bisacodyl (Dulcolax Supp) 10 mg STK-MED ONCE .ROUTE ; Start 08/15/19 at 10:59; Stop 08/15/19 at 10:59; Status DC Heparin Sodium (Porcine) 1000 unit/Sodium Chloride 1,001 ml @ 1,001 mls/hr 1X ONCE IRR ; Start 08/15/19 at 12:00; Stop 08/15/19 at 12:59; Status DC Propofol 20 ml @ As Directed STK-MED ONCE IV ; Start 08/15/19 at 11:05; Stop at 11:05; Status DC Sevoflurane (Ultane) 90 ml STK-MED ONCE IH ; Start 08/15/19 at 11:05; Stop 08/15/19 at 11:05; Status DC Sevoflurane (Ultane) 60 ml STK-MED ONCE IH ; Start 08/15/19 at 12:26; Stop 08/15/19 at 12:27; Status DC Propofol 20 ml @ As Directed STK-MED ONCE IV ; Start 08/15/19 at 12:26; Stop 08/15/19 at 12:27; Status DC Phenylephrine HCl (PHENYLEPHRINE in 0.9% NACL PF) 1 mg STK-MED ONCE IV ; Start 08/15/19 at 12:34; Stop 08/15/19 at 12:34; Status DC Heparin Sodium (Porcine) (Heparin Sodium) 5,000 unit Q12HR SQ Last administered on 08/24/19at 20:57; Start 08/15/19 at 21:00; Stop 08/25/19 at 09:59; Status DC Sodium Chloride (Normal Saline Flush) 3 ml QSHIFT PRN IV AFTER MEDS AND BLOOD DRAWS; Start 08/15/19 at 13:45 Naloxone HCl (Narcan) 0.4 mg PRN Q2MIN PRN IV SEE INSTRUCTIONS Last administered on 09/24/19at 15:15; Start 08/15/19 at 13:45 Sodium Chloride 1,000 ml @ 25 mls/hr Q24H IV Last administered on 09/13/19at 13:37; Start 08/15/19 at 13:37; Stop 09/16/19 at 13:09; Status DC Naloxone HCl (Narcan) 0.4 mg PRN Q2MIN PRN IV SEE INSTRUCTIONS; Start 08/15/19 at 14:30; Status UNV Sodium Chloride 1,000 ml @ 25 mls/hr Q24H IV ; Start 08/15/19 at 14:30; Status UNV Hydromorphone HCl 30 ml @ 0 mls/hr CONT PRN PRN IV PER PROTOCOL Last adminis tered on 08/20/19at 16:08; Start 08/15/19 at 14:30; Stop 08/22/19 at 08:55; Status DC Potassium Acetate 55 meq/Magnesium Sulfate 20 meq/ Calcium Gluconate 10 meq/ Multivitamins 10 ml/Chromium/ Copper/Manganese/ Seleni/Zn 0.5 ml/ Insulin Human Regular 35 unit/ Total Parenteral Nutrition/Amino Acids/Dextrose/ Fat Emulsion Intravenous 1,920 ml @ 80 mls/hr TPN CONT IV Last administered on 08/15/19at 22:01; Start 08/15/19 at 22:00; Stop 08/16/19 at 21:59; Status DC Bumetanide (Bumex) 2 mg [id number] IV Last administered on 08/19/19at 13:50; Start 08/16/19 at 14:00; Stop 08/20/19 at 14:10; Status DC Meropenem 1 gm/ Sodium Chloride 100 ml @ 200 mls/hr Q8HRS IV Last administered on 09/09/19at 05:53; Start 08/16/19 at 14:00; Stop 09/09/19 at 09:31; Status DC Potassium Acetate 55 meq/Magnesium Sulfate 20 meq/ Calcium Gluconate 10 meq/ Multivitamins 10 ml/Chromium/ Copper/Manganese/ Seleni/Zn 0.5 ml/ Insulin Human Regular 35 unit/ Total Parenteral Nutrition/Amino Acids/Dextrose/ Fat Emulsion Intravenous 1,920 ml @ 80 mls/hr TPN CONT IV Last administered on 08/16/19at 22:02; Start 08/16/19 at 22:00; Stop 08/17/19 at 21:59; Status DC Hydromorphone HCl (Dilaudid Standard DESKTOP ARCHITECT) 12 mg STK-MED ONCE IV ; Start 08/15/19 at 14:35; Stop 08/16/19 at 13:53; Status DC Artificial Tears (Artificial Tears) 1 drop PRN Q15MIN PRN OU DRY EYE Last administered on 10/03/19at 03:38; Start 08/17/19 at 05:30 Hydromorphone HCl (Dilaudid Standard DESKTOP ARCHITECT) 12 mg STK-MED ONCE IV ; Start 08/16/19 at 12:05; Stop 08/17/19 at 09:15; Status DC Potassium Acetate 65 meq/Magnesium Sulfate 20 meq/ Calcium Gluconate 10 meq/ Multivitamins 10 ml/Chromium/ Copper/Manganese/ Seleni/Zn 0.5 ml/ Insulin Human Regular 30 unit/ Total Parenteral Nutrition/Amino Acids/Dextrose/ Fat Emulsion Intravenous 1,920 ml @ 80 mls/hr TPN CONT IV Last administered on 08/17/19at 22:22; Start 08/17/19 at 22:00; Stop 08/18/19 at 21:59; Status DC Cyclobenzaprine HCl (Flexeril) 10 mg PRN Q6HRS PRN PO MUSCLE SPASMS; Start 08/18/19 at 10:45 Potassium Acetate 55 meq/Magnesium Sulfate 20 meq/ Calcium Gluconate 10 meq/ Multivitamins 10 ml/Chromium/ Copper/Manganese/ Seleni/Zn 0.5 ml/ Insulin Human Regular 30 unit/ Total Parenteral Nutrition/Amino Acids/Dextrose/ Fat Emulsion Intravenous 1,920 ml @ 80 mls/hr TPN CONT IV Last administered on 08/19/19at 01:00; Start 08/18/19 at 22:00; Stop 08/19/19 at 21:59; Status DC Magnesium Sulfate 50 ml @ 25 mls/hr 1X ONCE IV Last administered on 08/18/19at 17:18; Start 08/18/19 at 12:45; Stop 08/18/19 at 14:44; Status DC Potassium Chloride/Water 100 ml @ 100 mls/hr 1X ONCE IV Last administered on 08/19/19at 11:27; Start 08/19/19 at 12:00; Stop 08/19/19 at 12:59; Status DC Hydromorphone HCl (Dilaudid Standard DESKTOP ARCHITECT) 12 mg STK-MED ONCE IV ; Start 08/17/19 at 10:50; Stop 08/19/19 at 11:02; Status DC Hydromorphone HCl (Dilaudid Standard DESKTOP ARCHITECT) 12 mg STK-MED ONCE IV ; Start 08/18/19 at 13:47; Stop 08/19/19 at 11:03; Status DC Potassium Acetate 30 meq/Magnesium Sulfate 20 meq/ Calcium Gluconate 10 meq/ Multivitamins 10 ml/Chromium/ Copper/Manganese/ Seleni/Zn 0.5 ml/ Insulin Human Regular 30 unit/ Potassium Chloride 30 meq/ Total Parenteral Nutrition/Amino Acids/Dextrose/ Fat Emulsion Intravenous 1,920 ml @ 80 mls/hr TPN CONT IV Last administered on 08/19/19at 22:34; Start 08/19/19 at 22:00; Stop 08/20/19 at 21:59; Status DC Potassium Chloride/Water 100 ml @ 100 mls/hr Q1H IV Last administered on 08/20/19at 13:05; Start 08/20/19 at 07:00; Stop 08/20/19 at 10:59; Status DC Magnesium Sulfate 50 ml @ 25 mls/hr 1X ONCE IV Last administered on 08/20/19at 10:34; Start 08/20/19 at 10:30; Stop 08/20/19 at 12:29; Status DC Potassium Chloride 75 meq/ Magnesium Sulfate 20 meq/Calcium Gluconate 10 meq/ Multivitamins 10 ml/Chromium/ Copper/Manganese/ Seleni/Zn 0.5 ml/ Insulin Human Regular 30 unit/ Total Parenteral Nutrition/Amino Acids/Dextrose/ Fat Emulsion Intravenous 1,920 ml @ 80 mls/hr TPN CONT IV Last administered on 08/20/19at 21:51; Start 08/20/19 at 22:00; Stop 08/21/19 at 22:00; Status DC Potassium Chloride 75 meq/ Magnesium Sulfate 20 meq/Calcium Gluconate 10 meq/ Multivitamins 10 ml/Chromium/ Copper/Manganese/ Seleni/Zn 0.5 ml/ Insulin Human Regular 25 unit/ Total Parenteral Nutrition/Amino Acids/Dextrose/ Fat Emulsion Intravenous 1,920 ml @ 80 mls/hr TPN CONT IV Last administered on 08/21/19at 22:04; Start 08/21/19 at 22:00; Stop 08/22/19 at 21:59; Status DC Hydromorphone HCl (Dilaudid) 0.4 mg PRN Q4HRS PRN IVP PAIN Last administered on 08/22/19at 10:57; Start 08/22/19 at 09:00; Stop 08/22/19 at 18:59; Status DC Micafungin Sodium 100 mg/Dextrose 100 ml @ 100 mls/hr Q24H IV Last administered on 09/13/19at 12:17; Start 08/22/19 at 11:00; Stop 09/14/19 at 09:59; Status DC Daptomycin 485 mg/ Sodium Chloride 50 ml @ 100 mls/hr Q24H IV Last administered on 08/29/19at 13:10; Start 08/22/19 at 11:00; Stop 08/30/19 at 07:44; Status DC Potassium Chloride 75 meq/ Magnesium Sulfate 15 meq/Calcium Gluconate 8 meq/ Multivitamins 10 ml/Chromium/ Copper/Manganese/ Seleni/Zn 0.5 ml/ Insulin Human Regular 25 unit/ Total Parenteral Nutrition/Amino Acids/Dextrose/ Fat Emulsion Intravenous 1,920 ml @ 80 mls/hr TPN CONT IV Last administered on 08/22/19at 23:08; Start 08/22/19 at 22:00; Stop 08/23/19 at 21:59; Status DC Haloperidol Lactate (Haldol Inj) 3 mg 1X ONCE IVP Last administered on 08/22/19at 14:37; Start 08/22/19 at 14:30; Stop 08/22/19 at 14:31; Status DC Hydromorphone HCl (Dilaudid) 1 mg PRN Q4HRS PRN IVP PAIN Last administered on 09/05/19at 06:25; Start 08/22/19 at 19:00; Stop 09/05/19 at 17:10; Status DC Potassium Chloride 75 meq/ Magnesium Sulfate 15 meq/Calcium Gluconate 8 meq/ Multivitamins 10 ml/Chromium/ Copper/Manganese/ Seleni/Zn 0.5 ml/ Insulin Human Regular 20 unit/ Total Parenteral Nutrition/Amino Acids/Dextrose/ Fat Emulsion Intravenous 1,920 ml @ 80 mls/hr TPN CONT IV Last administered on 08/23/19at 22:10; Start 08/23/19 at 22:00; Stop 08/24/19 at 21:59; Status DC Lidocaine HCl (Buffered Lidocaine 1%) 3 ml STK-MED ONCE .ROUTE ; Start 08/24/19 at 11:31; Stop 08/24/19 at 11:31; Status DC Lidocaine HCl (Buffered Lidocaine 1%) 3 ml STK-MED ONCE .ROUTE ; Start 08/24/19 at 12:28; Stop 08/24/19 at 12:29; Status DC Lidocaine HCl (Buffered Lidocaine 1%) 6 ml 1X ONCE INJ Last administered on 08/24/19at 12:53; Start 08/24/19 at 12:45; Stop 08/24/19 at 12:46; Status DC Potassium Chloride 75 meq/ Magnesium Sulfate 15 meq/Calcium Gluconate 8 meq/ Multivitamins 10 ml/Chromium/ Copper/Manganese/ Seleni/Zn 0.5 ml/ Insulin Human Regular 20 unit/ Total Parenteral Nutrition/Amino Acids/Dextrose/ Fat Emulsion Intravenous 1,920 ml @ 80 mls/hr TPN CONT IV Last administered on 08/24/19at 22:00; Start 08/24/19 at 22:00; Stop 08/25/19 at 21:59; Status DC Potassium Chloride 75 meq/ Magnesium Sulfate 15 meq/Calcium Gluconate 8 meq/ Multivitamins 10 ml/Chromium/ Copper/Manganese/ Seleni/Zn 0.5 ml/ Insulin Human Regular 15 unit/ Total Parenteral Nutrition/Amino Acids/Dextrose/ Fat Emulsion Intravenous 1,920 ml @ 80 mls/hr TPN CONT IV Last administered on 08/25/19at 22:28; Start 08/25/19 at 22:00; Stop 08/26/19 at 21:59; Status DC Vecuronium [place] (Norcuron Bolus) 6 mg PRN Q6HRS PRN IV VENT ASYNCHRONY; Start 08/25/19 at 19:15; Stop 08/25/19 at 19:35; Status DC Bumetanide (Bumex) 2 mg 1X ONCE IV Last administered on 08/25/19at 22:09; Start 08/25/19 at 19:45; Stop 08/25/19 at 19:46; Status DC Lidocaine HCl (Buffered Lidocaine 1%) 3 ml STK-MED ONCE .ROUTE ; Start 08/26/19 at 07:59; Stop 08/26/19 at 07:59; Status DC Midazolam HCl (Versed) 5 mg STK-MED ONCE .ROUTE ; Start 08/26/19 at 08:36; Stop 08/26/19 at 08:36; Status DC Fentanyl Citrate (Fentanyl 5ml Vial) 250 mcg STK-MED ONCE .ROUTE ; Start 08/26/19 at 08:36; Stop 08/26/19 at 08:37; Status DC Lidocaine HCl (Buffered Lidocaine 1%) 3 ml 1X ONCE IJ Last administered on 08/26/19at 09:30; Start 08/26/19 at 09:15; Stop 08/26/19 at 09:16; Status DC Midazolam HCl (Versed) 5 mg 1X ONCE IV Last administered on 08/26/19at 09:30; Start 08/26/19 at 09:15; Stop 08/26/19 at 09:16; Status DC Fentanyl Citrate (Fentanyl 5ml Vial) 250 mcg 1X ONCE IV Last administered on 08/26/19at 09:30; Start 08/26/19 at 09:15; Stop 08/26/19 at 09:16; Status DC Bumetanide (Bumex) 2 mg DAILY IV Last administered on 09/05/19at 08:07; Start 08/26/19 at 10:00; Stop 09/05/19 at 17:15; Status DC Potassium Chloride 75 meq/ Magnesium Sulfate 15 meq/ Multivitamins 10 ml/Chromium/ Copper/Manganese/ Seleni/Zn 0.5 ml/ Insulin Human Regular 15 unit/ Total Parenteral Nutrition/Amino Acids/Dextrose/ Fat Emulsion Intravenous 1,920 ml @ 80 mls/hr TPN CONT IV Last administered on 08/26/19at 21:59; Start 08/26/19 at 22:00; Stop 08/27/19 at 21:59; Status DC Metoclopramide HCl (Reglan Vial) 10 mg PRN Q3HRS PRN IVP NAUSEA/VOMITING-3rd choice Last administered on 09/01/19at 04:25; Start 08/27/19 at 16:45 Potassium Chloride 75 meq/ Magnesium Sulfate 15 meq/ Multivitamins 10 ml/Chromium/ Copper/Manganese/ Seleni/Zn 0.5 ml/ Insulin Human Regular 15 unit/ Total Parenteral Nutrition/Amino Acids/Dextrose/ Fat Emulsion Intravenous 1,920 ml @ 80 mls/hr TPN CONT IV Last administered on 08/27/19at 22:41; Start 08/27/19 at 22:00; Stop 08/28/19 at 21:59; Status DC Magnesium Sulfate 50 ml @ 25 mls/hr 1X ONCE IV Last administered on 08/28/19at 10:44; Start 08/28/19 at 09:00; Stop 08/28/19 at 10:59; Status DC Potassium Chloride/Water 100 ml @ 100 mls/hr 1X ONCE IV Last administered on 08/28/19at 09:37; Start 08/28/19 at 09:00; Stop 08/28/19 at 09:59; Status DC Duloxetine HCl (Cymbalta) 30 mg DAILY PO Last administered on 08/29/19at 09:48; Start 08/28/19 at 14:00; Stop 08/31/19 at 10:25; Status DC Potassium Chloride 80 meq/ Magnesium Sulfate 20 meq/ Multivitamins 10 ml/Chromium/ Copper/Manganese/ Seleni/Zn 0.5 ml/ Insulin Human Regular 15 unit/ Total Parenteral Nutrition/Amino Acids/Dextrose/ Fat Emulsion Intravenous 1,920 ml @ 80 mls/hr TPN CONT IV Last administered on 08/28/19at 21:42; Start 08/28/19 at 22:00; Stop 08/29/19 at 21:59; Status DC Potassium Chloride 80 meq/ Magnesium Sulfate 20 meq/ Multivitamins 10 ml/Chromium/ Copper/Manganese/ Seleni/Zn 0.5 ml/ Insulin Human Regular 15 unit/ Total Parenteral Nutrition/Amino Acids/Dextrose/ Fat Emulsion Intravenous 1,920 ml @ 80 mls/hr TPN CONT IV Last administered on 08/29/19at 22:20; Start at 22:00; Stop 08/30/19 at 21:59; Status DC Lidocaine HCl (Buffered Lidocaine 1%) 3 ml STK-MED ONCE .ROUTE ; Start 08/30/19 at 09:54; Stop 08/30/19 at 09:55; Status DC Hydromorphone HCl (Dilaudid Standard DESKTOP ARCHITECT) 12 mg STK-MED ONCE IV ; Start 08/19/19 at 15:50; Stop 08/30/19 at 11:24; Status DC Potassium Chloride 80 meq/ Magnesium Sulfate 20 meq/ Multivitamins 10 ml/Chromium/ Copper/Manganese/ Seleni/Zn 0.5 ml/ Insulin Human Regular 15 unit/ Total Parenteral Nutrition/Amino Acids/Dextrose/ Fat Emulsion Intravenous 1,920 ml @ 80 mls/hr TPN CONT IV Last administered on 08/30/19at 21:40; Start 08/30/19 at 22:00; Stop 08/31/19 at 21:59; Status DC Lidocaine HCl (Buffered Lidocaine 1%) 6 ml 1X ONCE INJ Last administered on 08/30/19at 14:15; Start 08/30/19 at 14:15; Stop 08/30/19 at 14:16; Status DC Potassium Chloride 80 meq/ Magnesium Sulfate 20 meq/ Multivitamins 10 ml/Chromium/ Copper/Manganese/ Seleni/Zn 1 ml/ Insulin Human Regular 15 unit/ Total Parenteral Nutrition/Amino Acids/Dextrose/ Fat Emulsion Intravenous 1,920 ml @ 80 mls/hr TPN CONT IV Last administered on 08/31/19at 22:04; Start 08/31/19 at 22:00; Stop 09/01/19 at 21:59; Status DC Potassium Chloride/Water 100 ml @ 100 mls/hr 1X ONCE IV Last administered on 09/01/19at 11:34; Start 09/01/19 at 11:00; Stop 09/01/19 at 11:59; Status DC Potassium Chloride 90 meq/ Magnesium Sulfate 20 meq/ Multivitamins 10 ml/Chromiu m/ Copper/Manganese/ Seleni/Zn 1 ml/ Insulin Human Regular 15 unit/ Total Parenteral Nutrition/Amino Acids/Dextrose/ Fat Emulsion Intravenous 1,920 ml @ 80 mls/hr TPN CONT IV Last administered on 09/01/19at 22:57; Start 09/01/19 at 22:00; Stop 09/02/19 at 21:59; Status DC Potassium Chloride 90 meq/ Magnesium Sulfate 20 meq/ Multivitamins 10 ml/Chromium/ Copper/Manganese/ Seleni/Zn 1 ml/ Insulin Human Regular 15 unit/ Total Parenteral Nutrition/Amino Acids/Dextrose/ Fat Emulsion Intravenous 1,920 ml @ 80 mls/hr TPN CONT IV Last administered on 09/02/19at 22:48; Start 09/02/19 at 22:00; Stop 09/03/19 at 21:59; Status DC Potassium Chloride 90 meq/ Magnesium Sulfate 20 meq/ Multivitamins 10 ml/Chromium/ Copper/Manganese/ Seleni/Zn 1 ml/ Insulin Human Regular 15 unit/ Total Parenteral Nutrition/Amino Acids/Dextrose/ Fat Emulsion Intravenous 1,890 ml @ 78.75 mls/ hr TPN CONT IV Last administered on 09/03/19at 22:15; Start 09/03/19 at 22:00; Stop 09/04/19 at 21:59; Status DC Linezolid/Dextrose 300 ml @ 300 mls/hr Q12HR IV Last administered on 09/06/19at 21:08; Start 09/04/19 at 09:00; Stop 09/07/19 at 08:11; Status DC Daptomycin 450 mg/ Sodium Chloride 50 ml @ 100 mls/hr Q24H IV Last administered on 09/07/19at 09:25; Start 09/04/19 at 09:00; Stop 09/08/19 at 08:30; Status DC Potassium Chloride 90 meq/ Magnesium Sulfate 20 meq/ Multivitamins 10 ml/Chromium/ Copper/Manganese/ Seleni/Zn 1 ml/ Insulin Human Regular 15 unit/ Total Parenteral Nutrition/Amino Acids/Dextrose/ Fat Emulsion Intravenous 1,890 ml @ 78.75 mls/ hr TPN CONT IV Last administered on 09/04/19at 21:34; Start 09/04/19 at 22:00; Stop 09/05/19 at 21:59; Status DC Lorazepam (Ativan Inj) 2 mg STK-MED ONCE .ROUTE ; Start 09/04/19 at 14:58; Stop 09/04/19 at 14:58; Status DC Metoprolol Tartrate (Lopressor Vial) 5 mg 1X ONCE IVP Last administered on 09/04/19at 15:31; Start 09/04/19 at 15:15; Stop 09/04/19 at 15:16; Status DC Lorazepam (Ativan Inj) 2 mg 1X ONCE IVP Last administered on 09/04/19at 15:30; Start 09/04/19 at 15:15; Stop 09/04/19 at 15:16; Status DC Enoxaparin Sodium (Lovenox 40mg Syringe) 40 mg Q24H SQ Last administered on 09/23/19at 17:44; Start 09/04/19 at 17:00; Stop 09/25/19 at 06:50; Status DC Lorazepam (Ativan Inj) 1 mg PRN Q4HRS PRN IVP ANXIETY / AGITATION MILD-MOD Last administered on 09/18/19at 15:55; Start 09/04/19 at 19:15; Stop 09/20/19 at 11:45; Status DC Lorazepam (Ativan Inj) 2 mg PRN Q4HRS PRN IVP ANXIETY / AGITATION SEVERE Last administered on 09/19/19at 07:55; Start 09/04/19 at 19:15; Stop 09/20/19 at 11:45; Status DC Fentanyl Citrate (Fentanyl 2ml Vial) 50 mcg PRN Q4HRS PRN IVP SEVERE PAIN Last administered on 10/01/19at 05:15; Start 09/05/19 at 13:15; Stop 10/02/19 at 09:29; Status DC Fentanyl Citrate (Fentanyl 2ml Vial) 25 mcg PRN Q4HRS PRN IVP MODERATE PAIN Last administered on 10/01/19at 00:27; Start 09/05/19 at 13:15; Stop 10/02/19 at 09:30; Status DC Potassium Chloride 90 meq/ Magnesium Sulfate 20 meq/ Multivitamins 10 ml/Chromium/ Copper/Manganese/ Seleni/Zn 1 ml/ Insulin Human Regular 15 unit/ Total Parenteral Nutrition/Amino Acids/Dextrose/ Fat Emulsion Intravenous 1,890 ml @ 78.75 mls/ hr TPN CONT IV Last administered on 09/05/19at 22:18; Start 09/05/19 at 22:00; Stop 09/06/19 at 21:59; Status DC Furosemide (Lasix) 40 mg 1X ONCE IVP Last administered on 09/05/19at 21:51; Start 09/05/19 at 21:45; Stop 09/05/19 at 21:48; Status DC Albumin Human 100 ml @ 100 mls/hr 1X PRN PRN IV SEE COMMENTS; Start 09/06/19 at 01:30 Furosemide (Lasix) 40 mg [id number] IVP Last administered on 09/21/19at 08:04; Start 09/06/19 at 14:00; Stop 09/21/19 at 13:07; Status DC Potassium Chloride 90 meq/ Magnesium Sulfate 20 meq/ Multivitamins 10 ml/Chromium/ Copper/Manganese/ Seleni/Zn 1 ml/ Insulin Human Regular 15 unit/ Total Parenteral Nutrition/Amino Acids/Dextrose/ Fat Emulsion Intravenous 1,800 ml @ 75 mls/hr TPN CONT IV Last administered on 09/06/19at 22:31; Start 09/06/19 at 22:00; Stop 09/07/19 at 21:59; Status DC Potassium Chloride 90 meq/ Magnesium Sulfate 20 meq/ Multivitamins 10 ml/Chromium/ Copper/Manganese/ Seleni/Zn 1 ml/ Insulin Human Regular 15 unit/ Total Parenteral Nutrition/Amino Acids/Dextrose/ Fat Emulsion Intravenous 1,800 ml @ 75 mls/hr TPN CONT IV Last administered on 09/07/19at 22:28; Start 09/07/19 at 22:00; Stop 09/08/19 at 21:59; Status DC Potassium Chloride 110 meq/ Magnesium Sulfate 20 meq/ Multivitamins 10 ml/Chromium/ Copper/Manganese/ Seleni/Zn 1 ml/ Insulin Human Regular 15 unit/ Total Parenteral Nutrition/Amino Acids/Dextrose/ Fat Emulsion Intravenous 1,800 ml @ 75 mls/hr TPN CONT IV Last administered on 09/08/19at 22:01; Start 09/08/19 at 22:00; Stop 09/09/19 at 21:59; Status DC Saliva Substitute (Biotene Moisturizing Mouth) 2 spray PRN Q15MIN PRN PO DRY MOUTH; Start 09/08/19 at 11:00 Potassium Chloride 110 meq/ Magnesium Sulfate 20 meq/ Multivitamins 10 ml/Chromium/ Copper/Manganese/ Seleni/Zn 1 ml/ Insulin Human Regular 15 unit/ Total Parenteral Nutrition/Amino Acids/Dextrose/ Fat Emulsion Intravenous 1,800 ml @ 75 mls/hr TPN CONT IV Last administered on 09/09/19at 22:21; Start 09/09/19 at 22:00; Stop 09/10/19 at 21:59; Status DC Potassium Chloride 110 meq/ Magnesium Sulfate 20 meq/ Multivitamins 10 ml/Chromium/ Copper/Manganese/ Seleni/Zn 1 ml/ Insulin Human Regular 15 unit/ Total Parenteral Nutrition/Amino Acids/Dextrose/ Fat Emulsion Intravenous 1,800 ml @ 75 mls/hr TPN CONT IV Last administered on 09/10/19at 22:04; Start 09/10/19 at 22:00; Stop 09/11/19 at 21:59; Status DC Potassium Chloride 110 meq/ Magnesium Sulfate 20 meq/ Multivitamins 10 ml/Chromium/ Copper/Manganese/ Seleni/Zn 1 ml/ Insulin Human Regular 15 unit/ Total Parenteral Nutrition/Amino Acids/Dextrose/ Fat Emulsion Intravenous 1,800 ml @ 75 mls/hr TPN CONT IV Last administered on 09/11/19at 22:48; Start 09/11/19 at 22:00; Stop 09/12/19 at 21:59; Status DC Potassium Chloride 70 meq/ Magnesium Sulfate 20 meq/ Multivitamins 10 ml/Chromium/ Copper/Manganese/ Seleni/Zn 1 ml/ Insulin Human Regular 15 unit/ Total Parenteral Nutrition/Amino Acids/Dextrose/ Fat Emulsion Intravenous 1,800 ml @ 75 mls/hr TPN CONT IV Last administered on 09/12/19at 21:39; Start 09/12/19 at 22:00; Stop 09/13/19 at 21:59; Status DC Meropenem 500 mg/ Sodium Chloride 50 ml @ 100 mls/hr Q6HRS IV Last administered on 09/14/19at 06:02; Start 09/12/19 at 18:00; Stop 09/14/19 at 09:59; Status DC Barium Sulfate (Varibar Thin Liquid Apple) 148 gm 1X ONCE PO ; Start 09/13/19 at 11:45; Stop 09/13/19 at 11:49; Status DC Potassium Chloride 70 meq/ Magnesium Sulfate 20 meq/ Multivitamins 10 ml/Chromium/ Copper/Manganese/ Seleni/Zn 1 ml/ Insulin Human Regular 15 unit/ Total Parenteral Nutrition/Amino Acids/Dextrose/ Fat Emulsion Intravenous 1,800 ml @ 75 mls/hr TPN CONT IV Last administered on 09/13/19at 22:27; Start 09/13/19 at 22:00; Stop 09/14/19 at 21:59; Status DC Piperacillin Sod/ Tazobactam Sod 3.375 gm/Sodium Chloride 50 ml @ 100 mls/hr Q6HRS IV Last administered on 09/22/19at 06:10; Start 09/14/19 at 12:00; Stop 09/22/19 at 07:26; Status DC Potassium Chloride 70 meq/ Magnesium Sulfate 20 meq/ Multivitamins 10 ml/Chromium/ Copper/Manganese/ Seleni/Zn 1 ml/ Insulin Human Regular 15 unit/ Total Parenteral Nutrition/Amino Acids/Dextrose/ Fat Emulsion Intravenous 1,800 ml @ 75 mls/hr TPN CONT IV Last administered on 09/14/19at 22:03; Start 09/14/19 at 22:00; Stop 09/15/19 at 21:59; Status DC Potassium Chloride 70 meq/ Magnesium Sulfate 20 meq/ Multivitamins 10 ml/Chromium/ Copper/Manganese/ Seleni/Zn 1 ml/ Insulin Human Regular 15 unit/ Total Parenteral Nutrition/Amino Acids/Dextrose/ Fat Emulsion Intravenous 1,800 ml @ 75 mls/hr TPN CONT IV Last administered on 09/15/19at 22:33; Start 09/15/19 at 22:00; Stop 09/16/19 at 21:59; Status DC Potassium Chloride 70 meq/ Magnesium Sulfate 20 meq/ Multivitamins 10 ml/Chromium/ Copper/Manganese/ Seleni/Zn 1 ml/ Insulin Human Regular 15 unit/ Total Parenteral Nutrition/Amino Acids/Dextrose/ Fat Emulsion Intravenous 1,800 ml @ 75 mls/hr TPN CONT IV Last administered on 09/16/19at 23:13; Start 09/16/19 at 22:00; Stop 09/17/19 at 21:59; Status DC Potassium Chloride 80 meq/ Magnesium Sulfate 20 meq/ Multivitamins 10 ml/Chromium/ Copper/Manganese/ Seleni/Zn 1 ml/ Insulin Human Regular 15 unit/ Total Parenteral Nutrition/Amino Acids/Dextrose/ Fat Emulsion Intravenous 1,800 ml @ 75 mls/hr TPN CONT IV Last administered on 09/17/19at 22:30; Start 09/17/19 at 22:00; Stop 09/18/19 at 21:59; Status DC Potassium Chloride 80 meq/ Magnesium Sulfate 20 meq/ Multivitamins 10 ml/Chromium/ Copper/Manganese/ Seleni/Zn 1 ml/ Insulin Human Regular 15 unit/ Total Parenteral Nutrition/Amino Acids/Dextrose/ Fat Emulsion Intravenous 1,800 ml @ 75 mls/hr TPN CONT IV Last administered on 09/18/19at 21:54; Start 09/18/19 at 22:00; Stop 09/19/19 at 21:59; Status DC Potassium Chloride/Water 100 ml @ 100 mls/hr 1X ONCE IV Last administered on 09/19/19at 10:15; Start 09/19/19 at 10:00; Stop 09/19/19 at 10:59; Status DC Potassium Chloride 90 meq/ Magnesium Sulfate 20 meq/ Multivitamins 10 ml/Chromium/ Copper/Manganese/ Seleni/Zn 1 ml/ Insulin Human Regular 20 unit/ Total Parenteral Nutrition/Amino Acids/Dextrose/ Fat Emulsion Intravenous 1,800 ml @ 75 mls/hr TPN CONT IV Last administered on 09/19/19at 22:28; Start 09/19/19 at 22:00; Stop 09/20/19 at 21:59; Status DC Potassium Chloride 90 meq/ Magnesium Sulfate 20 meq/ Multivitamins 10 ml/Chromium/ Copper/Manganese/ Seleni/Zn 1 ml/ Insulin Human Regular 20 unit/ Total Parenteral Nutrition/Amino Acids/Dextrose/ Fat Emulsion Intravenous 1,800 ml @ 75 mls/hr TPN CONT IV Last administered on 09/20/19at 22:08; Start 09/20/19 at 22:00; Stop 09/21/19 at 21:59; Status DC Lorazepam (Ativan Inj) 0.25 mg PRN Q4HRS PRN IVP ANXIETY / AGITATION Last administered on 10/01/19at 02:25; Start 09/21/19 at 07:30 Potassium Chloride 90 meq/ Magnesium Sulfate 20 meq/ Multivitamins 10 ml/Chromium/ Copper/Manganese/ Seleni/Zn 1 ml/ Insulin Human Regular 20 unit/ Total Parenteral Nutrition/Amino Acids/Dextrose/ Fat Emulsion Intravenous 1,800 ml @ 75 mls/hr TPN CONT IV Last administered on 09/21/19at 23:13; Start 09/21/19 at 22:00; Stop 09/22/19 at 21:59; Status DC Furosemide (Lasix) 40 mg DAILY IVP Last administered on 09/23/19at 11:14; Start 09/21/19 at 13:30; Stop 09/25/19 at 09:12; Status DC Fluoxetine HCl (PROzac) 20 mg QHS PEG Last administered on 10/05/19at 22:42; Start 09/22/19 at 21:00 Fentanyl (Duragesic 50mcg/ Hr Patch) 1 patch Q72H TD Last administered on 09/22/19at 21:22; Start 09/22/19 at 21:00; Stop 10/01/19 at 12:00; Status DC Potassium Chloride 40 meq/ Potassium Acetate 60 meq/Magnesium Sulfate 10 meq/ Multivitamins 10 ml/Chromium/ Copper/Manganese/ Seleni/Zn 1 ml/ Insulin Human Regular 20 unit/ Total Parenteral Nutrition/Amino Acids/Dextrose/ Fat Emulsion Intravenous 1,800 ml @ 75 mls/hr TPN CONT IV Last administered on 09/23/19at 00:03; Start 09/22/19 at 22:00; Stop 09/23/19 at 21:59; Status DC Potassium Acetate 80 meq/Magnesium Sulfate 5 meq/ Multivitamins 10 ml/Chromium/ Copper/Manganese/ Seleni/Zn 1 ml/ Insulin Human Regular 20 unit/ Total Parenteral Nutrition/Amino Acids/Dextrose/ Fat Emulsion Intravenous 1,920 ml @ 80 mls/hr TPN CONT IV Last administered on 09/23/19at 21:59; Start 09/23/19 at 22:00; Stop 09/24/19 at 21:59; Status DC Potassium Acetate 60 meq/Magnesium Sulfate 5 meq/ Multivitamins 10 ml/Chromium/ Copper/Manganese/ Seleni/Zn 1 ml/ Insulin Human Regular 30 unit/ Total Parenteral Nutrition/Amino Acids/Dextrose/ Fat Emulsion Intravenous 1,920 ml @ 80 mls/hr TPN CONT IV Last administered on 09/24/19at 21:54; Start 09/24/19 at 22:00; Stop 09/25/19 at 21:59; Status DC Norepinephrine Bitartrate 8 mg/ Dextrose 258 ml @ 13.332 mls/ hr CONT PRN IV PER PROTOCOL Last administered on 09/25/19at 21:46; Start 09/25/19 at 06:30 Albumin Human 500 ml @ 125 mls/hr 1X ONCE IV Last administered on 09/25/19at 08:10; Start 09/25/19 at 08:15; Stop 09/25/19 at 12:14; Status DC Potassium Acetate 40 meq/Magnesium Sulfate 5 meq/ Multivitamins 10 ml/Chromium/ Copper/Manganese/ Seleni/Zn 1 ml/ Insulin Human Regular 30 unit/ Total Parenteral Nutrition/Amino Acids/Dextrose/ Fat Emulsion Intravenous 1,920 ml @ 80 mls/hr TPN CONT IV Last administered on 09/25/19at 22:23; Start 09/25/19 at 22:00; Stop 09/26/19 at 21:59; Status DC Meropenem 1 gm/ Sodium Chloride 100 ml @ 200 mls/hr Q8HRS IV ; Start 09/25/19 at 14:00; Status Cancel Meropenem 1 gm/ Sodium Chloride 100 ml @ 200 mls/hr Q8HRS IV Last administered on 09/25/19at 11:04; Start 09/25/19 at 10:00; Stop 09/25/19 at 13:00; Status DC Meropenem 1 gm/ Sodium Chloride 100 ml @ 200 mls/hr Q12HR IV Last administered on 10/06/19at 08:17; Start 09/25/19 at 21:00 Sodium Chloride 1,000 ml @ 1,000 mls/hr 1X ONCE IV Last administered on 09/25/19at 11:06; Start 09/25/19 at 10:45; Stop 09/25/19 at 11:44; Status DC Micafungin Sodium 100 mg/Dextrose 100 ml @ 100 mls/hr Q24H IV Last administered on 10/05/19at 10:41; Start 09/25/19 at 11:00 Daptomycin 410 mg/ Sodium Chloride 50 ml @ 100 mls/hr Q24H IV Last administered on 09/27/19at 13:33; Start 09/25/19 at 14:00; Stop 09/28/19 at 08:30; Status DC Midazolam HCl (Versed) 2 mg STK-MED ONCE .ROUTE ; Start 09/25/19 at 14:47; Stop 09/25/19 at 14:48; Status DC Fentanyl Citrate (Fentanyl 2ml Vial) 100 mcg STK-MED ONCE .ROUTE ; Start 09/25/19 at 14:47; Stop 09/25/19 at 14:48; Status DC Flumazenil (Romazicon) 0.5 mg STK-MED ONCE IV ; Start 09/25/19 at 14:48; Stop 09/25/19 at 14:48; Status DC Naloxone HCl (Narcan) 0.4 mg STK-MED ONCE .ROUTE ; Start 09/25/19 at 14:48; Stop 09/25/19 at 14:48; Status DC Lidocaine HCl (Lidocaine 1% 20ml Vial) 20 ml STK-MED ONCE .ROUTE ; Start 09/25/19 at 14:48; Stop 09/25/19 at 14:48; Status DC Midazolam HCl (Versed) 2 mg 1X ONCE IV Last administered on 09/25/19at 15:28; Start 09/25/19 at 15:00; Stop 09/25/19 at 15:01; Status DC Fentanyl Citrate (Fentanyl 2ml Vial) 100 mcg 1X ONCE IV Last administered on 09/25/19at 15:28; Start 09/25/19 at 15:00; Stop 09/25/19 at 15:01; Status DC Lidocaine HCl (Lidocaine 1% 20ml Vial) 20 ml 1X ONCE INJ Last administered on 09/25/19at 15:30; Start 09/25/19 at 15:00; Stop 09/25/19 at 15:01; Status DC Sodium Chloride 1,000 ml @ 100 mls/hr Q10H IV Last administered on 10/04/19at 07:30; Start 09/25/19 at 20:00; Stop 10/04/19 at 11:26; Status DC Sodium Bicarbonate (Sodium Bicarb Adult 8.4% Syr) 50 meq 1X ONCE IV Last administered on 09/25/19at 21:47; Start 09/25/19 at 22:00; Stop 09/25/19 at 22:01; Status DC Potassium Acetate 40 meq/Magnesium Sulfate 5 meq/ Multivitamins 10 ml/Chromium/ Copper/Manganese/ Seleni/Zn 1 ml/ Insulin Human Regular 30 unit/ Total Parenteral Nutrition/Amino Acids/Dextrose/ Fat Emulsion Intravenous 1,920 ml @ 80 mls/hr TPN CONT IV Last administered on 09/26/19at 22:28; Start 09/26/19 at 22:00; Stop 09/27/19 at 21:59; Status DC Sodium Chloride 500 ml @ 500 mls/hr 1X ONCE IV Last administered on 09/27/19at 06:39; Start 09/27/19 at 06:45; Stop 09/27/19 at 07:44; Status DC Potassium Acetate 40 meq/Magnesium Sulfate 5 meq/ Multivitamins 10 ml/Chromium/ Copper/Manganese/ Seleni/Zn 1 ml/ Insulin Human Regular 30 unit/ Total Parenteral Nutrition/Amino Acids/Dextrose/ Fat Emulsion Intravenous 1,920 ml @ 80 mls/hr TPN CONT IV Last administered on 09/27/19at 22:03; Start 09/27/19 at 22:00; Stop 09/28/19 at 21:59; Status DC Metoprolol Tartrate (Lopressor Vial) 5 mg PRN Q6HRS PRN IVP HYPERTENSION Last administered on 10/05/19at 10:10; Start 09/28/19 at 09:00 Potassium Acetate 40 meq/Magnesium Sulfate 5 meq/ Multivitamins 10 ml/Chromium/ Copper/Manganese/ Seleni/Zn 1 ml/ Insulin Human Regular 30 unit/ Total Parenteral Nutrition/Amino Acids/Dextrose/ Fat Emulsion Intravenous 1,920 ml @ 80 mls/hr TPN CONT IV Last administered on 09/28/19at 21:26; Start 09/28/19 at 22:00; Stop 09/29/19 at 21:59; Status DC Potassium Acetate 40 meq/Magnesium Sulfate 5 meq/ Multivitamins 10 ml/Chromium/ Copper/Manganese/ Seleni/Zn 1 ml/ Insulin Human Regular 30 unit/ Total Parenteral Nutrition/Amino Acids/Dextrose/ Fat Emulsion Intravenous 1,920 ml @ 80 mls/hr TPN CONT IV Last administered on 09/29/19at 23:23; Start 09/29/19 at 22:00; Stop 09/30/19 at 21:59; Status DC Potassium Acetate 40 meq/Magnesium Sulfate 5 meq/ Multivitamins 10 ml/Chromium/ Copper/Manganese/ Seleni/Zn 1 ml/ Insulin Human Regular 30 unit/ Total Parenteral Nutrition/Amino Acids/Dextrose/ Fat Emulsion Intravenous 1,920 ml @ 80 mls/hr TPN CONT IV Last administered on 09/30/19at 21:35; Start 09/30/19 at 22:00; Stop 10/01/19 at 21:59; Status DC Furosemide (Lasix) 20 mg 1X ONCE IVP Last administered on 10/01/19at 06:26; Start 10/01/19 at 06:15; Stop 10/01/19 at 06:16; Status DC Methylprednisolone Sodium Succinate (SOLU-Medrol 125MG VIAL) 125 mg 1X ONCE IV Last administered on 10/01/19at 06:26; Start 10/01/19 at 06:15; Stop 10/01/19 at 06:16; Status DC Albuterol/ Ipratropium (Duoneb) 3 ml Q4HRS NEB Last administered on 10/06/19at 07:48; Start 10/01/19 at 08:00 Fentanyl Citrate 30 ml @ 0 mls/hr CONT PRN IV SEE PROTOCOL Last administered on 10/06/19at 08:31; Start 10/01/19 at 06:00 Propofol 100 ml @ 0 mls/hr CONT PRN IV SEE PROTOCOL Last administered on 10/05/19at 22:22; Start 10/01/19 at 06:00 Fentanyl Citrate (Fentanyl 2ml Vial) 25 mcg PRN Q1HR PRN IV SEE COMMENTS; Start 10/01/19 at 06:00 Fentanyl Citrate (Fentanyl 2ml Vial) 50 mcg PRN Q1HR PRN IV SEE COMMENTS; Start 10/01/19 at 06:00 Chlorhexidine Gluconate (Peridex) 15 ml BID MM ; Start 10/01/19 at 09:00; Stop 10/01/19 at 07:58; Status DC Potassium Acetate 40 meq/Magnesium Sulfate 5 meq/ Multivitamins 10 ml/Chromium/ Copper/Manganese/ Seleni/Zn 1 ml/ Insulin Human Regular 30 unit/ Total Parenteral Nutrition/Amino Acids/Dextrose/ Fat Emulsion Intravenous 1,920 ml @ 80 mls/hr TPN CONT IV Last administered on 10/01/19at 21:19; Start 10/01/19 at 22:00; Stop 10/02/19 at 21:59; Status DC Acetylcysteine (Mucomyst 20% Resp Treatment) 600 mg BID NEB Last administered on 10/06/19at 07:49; Start 10/01/19 at 21:00 Magnesium Sulfate 100 ml @ 25 mls/hr 1X ONCE IV Last administered on 10/01/19at 15:48; Start 10/01/19 at 15:45; Stop 10/01/19 at 19:44; Status DC Potassium Acetate 40 meq/Magnesium Sulfate 5 meq/ Multivitamins 10 ml/Chromium/ Copper/Manganese/ Seleni/Zn 1 ml/ Insulin Human Regular 30 unit/ Total Parenteral Nutrition/Amino Acids/Dextrose/ Fat Emulsion Intravenous 1,920 ml @ 80 mls/hr TPN CONT IV Last administered on 10/02/19at 21:35; Start 10/02/19 at 22:00; Stop 10/03/19 at 21:59; Status DC Potassium Chloride/Water 100 ml @ 100 mls/hr Q1H IV Last administered on 10/03/19at 08:31; Start 10/03/19 at 07:00; Stop 10/03/19 at 08:59; Status DC Potassium Acetate 40 meq/Magnesium Sulfate 5 meq/ Multivitamins 10 ml/Chromium/ Copper/Manganese/ Seleni/Zn 1 ml/ Insulin Human Regular 30 unit/ Total Parenteral Nutrition/Amino Acids/Dextrose/ Fat Emulsion Intravenous 1,920 ml @ 80 mls/hr TPN CONT IV Last administered on 10/03/19at 21:54; Start 10/03/19 at 22:00; Stop 10/04/19 at 19:34; Status DC Lidocaine HCl (Buffered Lidocaine 1%) 3 ml STK-MED ONCE .ROUTE ; Start 10/03/19 at 12:14; Stop 10/03/19 at 12:14; Status DC Lidocaine HCl (Buffered Lidocaine 1%) 3 ml 1X ONCE IJ Last administered on 10/03/19at 13:11; Start 10/03/19 at 13:00; Stop 10/03/19 at 13:01; Status DC Magnesium Sulfate 50 ml @ 25 mls/hr 1X ONCE IV ; Start 10/04/19 at 08:15; Stop 10/04/19 at 10:14; Status DC Potassium Acetate 40 meq/Magnesium Sulfate 10 meq/ Multivitamins 10 ml/Chromium/ Copper/Manganese/ Seleni/Zn 1 ml/ Insulin Human Regular 20 unit/ Total Parenteral Nutrition/Amino Acids/Dextrose/ Fat Emulsion Intravenous 1,920 ml @ 80 mls/hr TPN CONT IV Last administered on 10/04/19at 21:32; Start 10/04/19 at 22:00; Stop 10/05/19 at 21:59; Status DC Potassium Chloride/Water 100 ml @ 100 mls/hr Q1H IV Last administered on 10/05/19at 09:12; Start 10/05/19 at 08:00; Stop 10/05/19 at 09:59; Status DC Alteplase, Recombinant (Cathflo For Central Catheter Clearance) 4 mg 1X ONCE INT CAT ; Start 10/05/19 at 09:15; Stop 10/05/19 at 09:16; Status UNV Alteplase, Recombinant (Cathflo For Central Catheter Clearance) 4 mg 1X ONCE INT CAT ; Start 10/05/19 at 09:15; Stop 10/05/19 at 09:16; Status UNV Alteplase, Recombinant (Cathflo For Central Catheter Clearance) 4 mg 1X ONCE INT CAT ; Start 10/05/19 at 09:15; Stop 10/05/19 at 09:16; Status UNV Alteplase, Recombinant 4 mg/ Sodium Chloride 20 ml @ 20 mls/hr 1X ONCE IV Last administered on 10/05/19at 10:10; Start 10/05/19 at 10:00; Stop 10/05/19 at 10:59; Status DC Alteplase, Recombinant 4 mg/ Sodium Chloride 20 ml @ 20 mls/hr 1X ONCE IV Last administered on 10/05/19at 10:09; Start 10/05/19 at 10:00; Stop 10/05/19 at 10:59; Status DC Alteplase, Recombinant 4 mg/ Sodium Chloride 20 ml @ 20 mls/hr 1X ONCE IV Last administered on 10/05/19at 10:09; Start 10/05/19 at 10:00; Stop 10/05/19 at 10:59; Status DC Potassium Acetate 60 meq/Magnesium Sulfate 10 meq/ Multivitamins 10 ml/Chromium/ Copper/Manganese/ Seleni/Zn 1 ml/ Insulin Human Regular 20 unit/ Total Parenteral Nutrition/Amino Acids/Dextrose/ Fat Emulsion Intravenous 1,920 ml @ 80 mls/hr TPN CONT IV Last administered on 10/05/19at 21:55; Start 10/05/19 at 22:00; Stop 10/06/19 at 21:59 Active Scripts Active Reported Bisoprolol Fumarate 5 Mg Tablet 10 Mg PO DAILY Vitals/I & O Vital Sign - Last 24 Hours 10/05/19 10/05/19 10/05/19 10/05/19 09:14 10:00 10:07 10:10 Pulse 132 132 Resp 39 B/P (MAP) 178/64 (102) 186/69 Pulse Ox 100 96 100 O2 Delivery Ventilator Tracheal Collar Trach Collar 40% FIO2 10/05/19 10/05/19 10/05/19 10/05/19 11:00 11:46 11:46 11:59 Pulse 109 Resp 20 B/P (MAP) 108/58 (75) Pulse Ox 98 99 O2 Delivery Ventilator Mechanical Ventilator Ventilator 10/05/19 10/05/19 10/05/19 10/05/19 12:00 13:00 14:00 15:00 Temp 99.0 99.0 Pulse 106 106 111 120 Resp 20 20 20 20 B/P (MAP) 136/58 (84) 158/70 (99) 109/54 (72) 124/67 (86) Pulse Ox 100 100 100 100 O2 Delivery Ventilator Ventilator Ventilator Ventilator 10/05/19 10/05/19 10/05/19 10/05/19 15:30 16:00 16:00 16:00 Temp 98.8 98.8 Pulse 114 Resp 20 B/P (MAP) 108/54 (72) Pulse Ox 99 100 O2 Delivery Ventilator Ventilator Mechanical Ventilator 10/05/19 10/05/19 10/05/19 10/05/19 17:00 18:00 18:18 19:00 Pulse 112 108 96 Resp 20 20 20 B/P (MAP) 108/52 (70) 106/52 (70) 124/52 (76) Pulse Ox 100 100 100 100 O2 Delivery Ventilator Ventilator Ventilator Ventilator 10/05/19 10/05/19 10/05/19 10/05/19 20:00 20:00 20:00 20:00 Temp 98.6 98.6 Pulse 104 Resp 20 B/P (MAP) 116/54 (74) Pulse Ox 99 99 O2 Delivery Ventilator Mechanical Ventilator Ventilator 10/05/19 10/05/19 10/05/19 10/05/19 21:00 22:00 23:00 23:35 Pulse 102 106 110 Resp 20 20 22 B/P (MAP) 120/54 (76) 122/58 (79) 156/70 (98) Pulse Ox 100 100 100 100 O2 Delivery Ventilator Ventilator Ventilator Ventilator 10/06/19 10/06/19 10/06/19 10/06/19 00:00 00:00 00:00 01:00 Temp 99.1 99.1 Pulse 104 96 Resp 20 20 B/P (MAP) 120/54 (76) 128/54 (78) Pulse Ox 100 100 O2 Delivery Ventilator Mechanical Ventilator Ventilator 10/06/19 10/06/19 10/06/19 10/06/19 02:00 02:55 03:00 04:00 Pulse 100 116 Resp 20 20 B/P (MAP) 128/56 (80) 146/58 (87) Pulse Ox 99 100 100 O2 Delivery Ventilator Ventilator Ventilator 10/06/19 10/06/19 10/06/1918/20 04:00 04:00 04:35 05:00 Temp 98.1 98.1 Pulse 116 110 Resp 20 B/P (MAP) 132/58 (82) 118/56 (76) Pulse Ox 100 100 100 O2 Delivery Ventilator Mechanical Ventilator Ventilator Ventilator 10/06/19 10/06/19 10/06/19 10/06/19 06:00 07:00 07:51 08:00 Pulse 118 108 Resp 20 B/P (MAP) 122/58 (79) 122/52 (75) Pulse Ox 100 100 100 O2 Delivery Ventilator Ventilator Ventilator 10/06/19 10/06/19 10/06/19 10/06/19 08:00 08:00 08:31 09:00 Temp 100.2 100.2 Pulse 104 112 Resp 20 20 B/P (MAP) 146/56 (86) 140/56 (84) Pulse Ox 100 100 100 O2 Delivery Ventilator Mechanical Ventilator Ventilator Ventilator Intake and Output 10/05/19 10/05/19 10/06/19 15:00 23:00 07:00 Intake Total 200 ml 1656.07 ml 611.8 ml Output Total 827 ml 665 ml 520 ml Balance -627 ml 991.07 ml 91.8 ml Hemodynamically unstable?: No Is patient in severe pain?: No Is NPO status required?: No CARIN FERNANDEZ MD Oct 06, 2019 09:02
--- NOTE | 2019-10-06 09:46 | PDOC ---
Provider Note Provider Note Date: 10/06/2019 No acute changes. Has had some decreased output from the drains Continue supportive care no new surgical recommendations Justicifation of Admission Dx: Justifications for Admission: Justification of Admission Dx: Yes CARIN MALDONADO MD Oct 06, 2019 09:46
--- NOTE | 2019-10-06 10:04 | NUR ---
SS following up with discharge planning. SS reviewed pt chart and discussed with pt RN. No new changes from yesterday. Pt remains on the vent at and trach shield during the day. Pt Max Assist with PT/OT and staff. Pt on TPN and IV Meropenem and Micafungin. Pt has chest tube and drains x3. SS will continue to follow for discharge planning.
[2019-10-06] MEDS: METOPROLOL TARTRATE 5 MG/5 ML VIAL. IVP PRN (10:14)
[2019-10-06] MEDS: ACETAMINOPHEN 650 MG SUPP.RECT. PR PRN (10:16)
--- NOTE | 2019-10-06 10:46 | PDOC ---
Objective: Objective: D/w nurse - had some sedation w/ vent overnight, plans to try trach collar and get up to chair. Stooled. Some drainage from left drain site. Vital Signs: Vital Signs Date Time Temp Pulse Resp B/P (MAP) Pulse Ox O2 Delivery O2 Flow Rate FiO2 10/06/19 10:15 36 98 Tracheal Collar 10/06/19 10:14 144 131/57 10/06/19 08:00 100.2 100.2 Labs: Laboratory Tests Test 10/05/19 11:59 10/05/19 18:34 10/06/19 01:35 10/06/19 06:20 Glucose (Fingerstick) 146 mg/dL 167 mg/dL 159 mg/dL White Blood Count 10.0 x10^3/uL Red Blood Count 3.06 x10^6/uL Hemoglobin 8.7 g/dL Hematocrit 26.0 % Mean Corpuscular Volume 85 fL Mean Corpuscular Hemoglobin 28 pg Mean Corpuscular Hemoglobin Concent 33 g/dL Red Cell Distribution Width 18.2 % Platelet Count 469 x10^3/uL Neutrophils (%) (Auto) 81 % Lymphocytes (%) (Auto) 13 % Monocytes (%) (Auto) 5 % Eosinophils (%) (Auto) 1 % Basophils (%) (Auto) 0 % Neutrophils # (Auto) 8.1 x10^3/uL Lymphocytes # (Auto) 1.3 x10^3/uL Monocytes # (Auto) 0.4 x10^3/uL Eosinophils # (Auto) 0.1 x10^3/uL Basophils # (Auto) 0.0 x10^3/uL Sodium Level 137 mmol/L Potassium Level 3.8 mmol/L Chloride Level 106 mmol/L Carbon Dioxide Level 24 mmol/L Anion Gap 7 Blood Urea Nitrogen 20 mg/dL Creatinine 0.6 mg/dL Estimated GFR (Cockcroft-Gault) 106.3 Glucose Level 137 mg/dL Calcium Level 8.8 mg/dL Magnesium Level 1.7 mg/dL Test 10/06/19 08:04 O2 Saturation 98 % Arterial Blood pH 7.49 Arterial Blood pCO2 at Patient Temp 28 mmHg Arterial Blood pO2 at Patient Temp 116 mmHg Arterial Blood HCO3 21 mmol/L Arterial Blood Base Excess -2 mmol/L FiO2 35% GRAM STAIN Final Final NO ORGANISMS SEEN. SQUAMOUS EPI CELL:NOT APPLICABLE PMN (WBCs):RARE ANAEROBIC-AEROBIC CULTURE Preliminary Preliminary Imaging: CXR 10/05 IMPRESSION: 1. Stable life support devices. 2. Improving right basilar opacities. 3. Small bilateral pleural effusions. PE: GEN: NAD LUNGS: trach HEART: tachycardic ABD: drains w/ scant brownish drainage NEURO/PSYCH: awake and alert, waves to me A/P: Complicated pancreatitis Resp failure MDR pseudomonas -- Continue support. Justicifation of Admission Dx: Justifications for Admission: Justification of Admission Dx: Yes CYNDEE FALCON Oct 06, 2019 10:45
[2019-10-06] MEDS: MICAFUNGIN 100 MG in IV DEXTROSE 5% 100ML 100 ML IV SCH (10:57)
[2019-10-06] MEDS: MAGNESIUM SULFATE 2GM 50 ML IV PRN (10:57)
[2019-10-06] MEDS ORDERED: IV NORMAL SALINE 500ML BAG 500 ML IV ONE (11:15)
[2019-10-06] MEDS ORDERED: ALBUMIN HUMAN 5% 500 ML IV ONE (11:15)
--- NOTE | 2019-10-06 11:31 | PDOC ---
PULMONARY PROGRESS NOTES Subjective off vent / , no distress Patient intubated on 07/10 , s/p trach 07/24, transferred back to ICU 09/22 for syncope with collapse developed anemia, blood drainage from RLQ abdomen drain site, and surrounding firmness / developed septic shock 09/24 from abdomen source, required levo 09/24 s/p 3 new drains 09/24 with brown color drainage Vitals Vital Signs Date Time Temp Pulse Resp B/P (MAP) Pulse Ox O2 Delivery O2 Flow Rate FiO2 10/06/19 11:00 119 25 105/50 (68) 99 Tracheal Collar 10/06/19 10:00 101.5 101.5 Comments awake,no soa General: Alert, No acute distress HEENT: Other (nc at perrl nose clear neck trach site ok no lab no thyromegaly) Lungs: Other (diminshed in bases, Rhonci in LLL) Cardiovascular: S1, S2 Abdomen: Soft, Non-tender, Other (bleeding from Sx. site RLQ and firmness) Extremities: Other (+1 BLE edema) Skin: Warm, Dry Labs Laboratory Tests Test 10/04/19 12:19 10/05/19 00:23 10/05/19 06:00 10/05/19 06:13 Glucose (Fingerstick) 145 mg/dL (70-99) 95 mg/dL (70-99) 108 mg/dL (70-99) White Blood Count 8.0 x10^3/uL (4.0-11.0) Red Blood Count 3.14 x10^6/uL (3.50-5.40) Hemoglobin 8.9 g/dL (12.0-15.5) Hematocrit 26.7 % (36.0-47.0) Mean Corpuscular Volume 85 fL (79-100) Mean Corpuscular Hemoglobin 29 pg (25-35) Mean Corpuscular Hemoglobin Concent 34 g/dL (31-37) Red Cell Distribution Width 18.3 % (11.5-14.5) Platelet Count 424 x10^3/uL (140-400) Neutrophils (%) (Auto) 73 % (31-73) Lymphocytes (%) (Auto) 22 % (24-48) Monocytes (%) (Auto) 4 % (0-9) Eosinophils (%) (Auto) 1 % (0-3) Basophils (%) (Auto) 0 % (0-3) Neutrophils # (Auto) 5.8 x10^3/uL (1.8-7.7) Lymphocytes # (Auto) 1.7 x10^3/uL (1.0-4.8) Monocytes # (Auto) 0.3 x10^3/uL (0.0-1.1) Eosinophils # (Auto) 0.1 x10^3/uL (0.0-0.7) Basophils # (Auto) 0.0 x10^3/uL (0.0-0.2) Sodium Level 140 mmol/L (136-145) Potassium Level 3.4 mmol/L (3.5-5.1) Chloride Level 106 mmol/L (98-107) Carbon Dioxide Level 25 mmol/L (21-32) Anion Gap 9 (6-14) Blood Urea Nitrogen 23 mg/dL (7-20) Creatinine 0.7 mg/dL (0.6-1.0) Estimated GFR (Cockcroft-Gault) 88.9 BUN/Creatinine Ratio 33 (6-20) Glucose Level 121 mg/dL (70-99) Calcium Level 9.0 mg/dL (8.5-10.1) Magnesium Level 1.7 mg/dL (1.8-2.4) Total Bilirubin 0.6 mg/dL (0.2-1.0) Aspartate Amino Transf (AST/SGOT) 18 U/L (15-37) Alanine Aminotransferase (ALT/SGPT) 27 U/L (14-59) Alkaline Phosphatase 110 U/L (46-116) Total Protein 4.5 g/dL (6.4-8.2) Albumin 1.0 g/dL (3.4-5.0) Albumin/Globulin Ratio 0.3 (1.0-1.7) Test 10/05/19 07:45 10/05/19 11:59 10/05/19 18:34 10/06/19 01:35 O2 Saturation 98 % (92-99) Arterial Blood pH 7.47 (7.35-7.45) Arterial Blood pCO2 at Patient Temp 27 mmHg (35-46) Arterial Blood pO2 at Patient Temp 109 mmHg (75-108) Arterial Blood HCO3 19 mmol/L (21-28) Arterial Blood Base Excess -4 mmol/L (-3-3) FiO2 35 Glucose (Fingerstick) 146 mg/dL (70-99) 167 mg/dL (70-99) 159 mg/dL (70-99) Test 10/06/19 06:20 10/06/19 08:04 White Blood Count 10.0 x10^3/uL (4.0-11.0) Red Blood Count 3.06 x10^6/uL (3.50-5.40) Hemoglobin 8.7 g/dL (12.0-15.5) Hematocrit 26.0 % (36.0-47.0) Mean Corpuscular Volume 85 fL (79-100) Mean Corpuscular Hemoglobin 28 pg (25-35) Mean Corpuscular Hemoglobin Concent 33 g/dL (31-37) Red Cell Distribution Width 18.2 % (11.5-14.5) Platelet Count 469 x10^3/uL (140-400) Neutrophils (%) (Auto) 81 % (31-73) Lymphocytes (%) (Auto) 13 % (24-48) Monocytes (%) (Auto) 5 % (0-9) Eosinophils (%) (Auto) 1 % (0-3) Basophils (%) (Auto) 0 % (0-3) Neutrophils # (Auto) 8.1 x10^3/uL (1.8-7.7) Lymphocytes # (Auto) 1.3 x10^3/uL (1.0-4.8) Monocytes # (Auto) 0.4 x10^3/uL (0.0-1.1) Eosinophils # (Auto) 0.1 x10^3/uL (0.0-0.7) Basophils # (Auto) 0.0 x10^3/uL (0.0-0.2) Sodium Level 137 mmol/L (136-145) Potassium Level 3.8 mmol/L (3.5-5.1) Chloride Level 106 mmol/L (98-107) Carbon Dioxide Level 24 mmol/L (21-32) Anion Gap 7 (6-14) Blood Urea Nitrogen 20 mg/dL (7-20) Creatinine 0.6 mg/dL (0.6-1.0) Estimated GFR (Cockcroft-Gault) 106.3 Glucose Level 137 mg/dL (70-99) Calcium Level 8.8 mg/dL (8.5-10.1) Magnesium Level 1.7 mg/dL (1.8-2.4) O2 Saturation 98 % (92-99) Arterial Blood pH 7.49 (7.35-7.45) Arterial Blood pCO2 at Patient Temp 28 mmHg (35-46) Arterial Blood pO2 at Patient Temp 116 mmHg (75-108) Arterial Blood HCO3 21 mmol/L (21-28) Arterial Blood Base Excess -2 mmol/L (-3-3) FiO2 35% Laboratory Tests Test 10/05/19 11:59 10/05/19 18:34 10/06/19 01:35 10/06/19 06:20 Glucose (Fingerstick) 146 mg/dL (70-99) 167 mg/dL (70-99) 159 mg/dL (70-99) White Blood Count 10.0 x10^3/uL (4.0-11.0) Red Blood Count 3.06 x10^6/uL (3.50-5.40) Hemoglobin 8.7 g/dL (12.0-15.5) Hematocrit 26.0 % (36.0-47.0) Mean Corpuscular Volume 85 fL (79-100) Mean Corpuscular Hemoglobin 28 pg (25-35) Mean Corpuscular Hemoglobin Concent 33 g/dL (31-37) Red Cell Distribution Width 18.2 % (11.5-14.5) Platelet Count 469 x10^3/uL (140-400) Neutrophils (%) (Auto) 81 % (31-73) Lymphocytes (%) (Auto) 13 % (24-48) Monocytes (%) (Auto) 5 % (0-9) Eosinophils (%) (Auto) 1 % (0-3) Basophils (%) (Auto) 0 % (0-3) Neutrophils # (Auto) 8.1 x10^3/uL (1.8-7.7) Lymphocytes # (Auto) 1.3 x10^3/uL (1.0-4.8) Monocytes # (Auto) 0.4 x10^3/uL (0.0-1.1) Eosinophils # (Auto) 0.1 x10^3/uL (0.0-0.7) Basophils # (Auto) 0.0 x10^3/uL (0.0-0.2) Sodium Level 137 mmol/L (136-145) Potassium Level 3.8 mmol/L (3.5-5.1) Chloride Level 106 mmol/L (98-107) Carbon Dioxide Level 24 mmol/L (21-32) Anion Gap 7 (6-14) Blood Urea Nitrogen 20 mg/dL (7-20) Creatinine 0.6 mg/dL (0.6-1.0) Estimated GFR (Cockcroft-Gault) 106.3 Glucose Level 137 mg/dL (70-99) Calcium Level 8.8 mg/dL (8.5-10.1) Magnesium Level 1.7 mg/dL (1.8-2.4) Test 10/06/19 08:04 O2 Saturation 98 % (92-99) Arterial Blood pH 7.49 (7.35-7.45) Arterial Blood pCO2 at Patient Temp 28 mmHg (35-46) Arterial Blood pO2 at Patient Temp 116 mmHg (75-108) Arterial Blood HCO3 21 mmol/L (21-28) Arterial Blood Base Excess -2 mmol/L (-3-3) FiO2 35% Medications Active Scripts Medications Dose Route/Sig Max Daily Dose Days Date Category Bisoprolol Fumarate 5 Mg Tablet 10 Mg PO DAILY 07/04/19 Reported Comments CXR improved right effusion/ atelectasis ct abdomen /pelvis 09/23 1. Removal of the percutaneous pigtail drainage catheters since the prior exam. Sequela of pancreatitis with extensive pseudocysts again demonstrated, the right-sided collections are slightly larger since the prior exam, the left-sided collections are stable. See above. 2. Moderate to large left pleural effusion with atelectasis and collapse of most of the left lower lobe, stable. Small right pleural effusion is stable. 3. Gallstone. ct chest 10/02 reviewed Impression . IMPRESSION: 1. Acute hypoxemic respiratory failure secondary to ARDS status post trach, developed anemia 09/24, blood drainage from RLQ abdomen drain site, and surrounding firmness / developed septic shock 09/24 from abdomen source, required levo /7 s/p 3 new drains 09/24 with brown color drainage, back on vent 09/30, off vent on/off since 10/02. 2. Gallstone pancreatitis, now with ongoing bleeding from prior drain. Anemic. s/p Tx multiple units over several days 3. septic shock/sepsis, recurrent 09/24, source abdomen. , off levo now, 4. Acute kidney injury-, Off HD--renal function decling. suspect JUANA on CKD due to hypotension , improved now 5. Acute gallstone pancreatitis. 6. Hypoalbuminemia. 7. Moderate persistent effusions, s/p left thora 08/29, reaccumulation of left effusion. O2 requirement not changed. 8. Fever- ,hypotension. suspect recurrent sepsis/ likely pancreatic source. Per ID, per surgery-- 9. Chronic anemia-- ongoing / s/p PRBC 10. Covid 19 testing negative 11. Moderate to large ascites-S/P paracentisis 12.S/P paracentisis with 4 liters removed on 08/03/19 13. S/P IR drain placement on 08/26/2019, removal, re inserted 09/24 14. Depression/Anxiety 15. Increase left effusion, ? loculated/ s/p left chest tube.. increase right effusion Plan . 1. TS . follow results of thoracentesis, titrate fio2 to keep sat 94%, 2. Follow all cultures/ PSA from pelvic drains. Abx per ID 3. Follow surgery recs-- Acute pancreatitis with persistent necrosis ---- 08/14 status post KAYLIN drain placement + C paropsilosis; 08/23 + yeast & high amylase; s/p additional drains on 08/25, removal of drains and now increase pseudocyst and increase fluid collection. likely infected fluid/ sepsis. on BS abx.follow surgery rec, planning surgical intervention next few weeks 4. Follow ID recs for ABX---- 5. Follow nephrology recs ----- 6. Continue TPN 7. monitor HGB, 4 units since 09/23--monitor HGB transfuse if less than 8.5 8 s/p thoracentesis, 08/29, 3 litres removed, 10/02. 800 cc so far. Monitor chest tube 9. Pt remains critically ill from severe necrotic pancreatis. Even with surgery prognosis grim. Surgery informed family. DVT/GI PPX: protonix--- holding lovenox 2/2 anemia PT/OT D/W RN, rt and d/w ID critically ill cc time 30 min no overlap VINAYAK LANDRUM MD Oct 06, 2019 11:31
[2019-10-06] MEDS: PROCHLORPERAZINE 10 MG/2 ML VIAL. IV PRN (12:15)
[2019-10-06] MEDS: TPN PER PHARMACY MC PRN (15:01)
--- NOTE | 2019-10-06 15:02 | NUR ---
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, 8 inches Weight: 88.828968 kg Current diet: NPO LABS: Sodium: 137 Potassium: 3.8 Chloride: 106 Calcium: 8.9 Corrected Calcium: 11.30 Magnesium: 1.7 CO2: 25 SCr: 0.6 Glucose: 137-159 Albumin: 1.0 AST: 62 ALT: 72 TPN FORMULA: TPN TYPE: Central Continuous AMINO ACIDS: 80 gm DEXTROSE: 250 gm LIPIDS: 20 gm POTASSIUM ACETATE: 60 mEq MAGNESIUM: 14 mEq INSULIN: 20 units MULTIPLE VITAMIN: 10 ml TRACE ELEMENTS: 1 ml(s) TPN PLAN: Magnesium 1.7. Replace with MagSul 2 gm IVPB and increase to 14 meq in TPN. Increase AA based on recommendations from RD. -CMP in AM per ID. R: Change TPN as noted above. Will monitor electrolytes, glucose, and tolerance to TPN. MIKAYLA CHU FORMERLY [facility] [place], 10/06/19 [id number]
[2019-10-06] MEDS ORDERED: [UNRECOGNIZED DRUG - OTHER] IV SCH ×8 (22:00)
[2019-10-06] MEDS ORDERED: AMINO ACID IV SCH ×8 (22:00)
[2019-10-06] MEDS ORDERED: DEXTROSE 70% IV SCH ×8 (22:00)
[2019-10-06] MEDS ORDERED: TOTAL PARENTERAL NUTRITION IV SCH ×8 (22:00)
[2019-10-06] MEDS: CIPROFLOXACIN 400MG PREMIX 200 ML IV SCH (22:24)
[2019-10-07] VITALS (24 sets, daily range): BP systolic 93–139; BP diastolic 49–94
[2019-10-07] MEDS: INSULIN LISPRO 300 UNITS/3 ML VIAL. SQ SCH ×4 (01:15→18:00)
[2019-10-07] MEDS: IPRATRPIUM/ALBUTEROL 0.5/2.5MG 3 ML NEBU. NEB SCH ×6 (04:00→20:10)
[2019-10-07 06:39] LABS: BASO % 0 % (0-3); EOS # 0.1 x10^3/uL (0.0-0.7); EOS % 1 % (0-3); HEMATOCRIT 24.9 % (36.0-47.0); HEMOGLOBIN 8.2 g/dL (12.0-15.5); LYMPH # 1.3 x10^3/uL (1.0-4.8); LYMPH % 15 % (24-48); MEAN CORPUSCULAR HEMOGLOBIN 28 pg (25-35); MEAN CORPUSCULAR HGB CONC 33 g/dL (31-37); MEAN CORPUSCULAR VOLUME 85 fL (79-100); MONO # 0.6 x10^3/uL (0.0-1.1); MONO % 7 % (0-9); NEUT # 6.8 x10^3/uL (1.8-7.7); NEUT % 77 % (31-73); PLATELET COUNT 452 x10^3/uL (140-400); RED BLOOD COUNT 2.93 x10^6/uL (3.50-5.40); RED CELL DISTRIBUTION WIDTH 18.2 % (11.5-14.5); WHITE BLOOD COUNT 8.9 x10^3/uL (4.0-11.0)
[2019-10-07 07:09] LABS: ALBUMIN 1.2 g/dL (3.4-5.0); ALBUMIN/GLOBULIN RATIO 0.4 (1.0-1.7); CALCIUM 9.3 mg/dL (8.5-10.1); CREATININE 0.6 mg/dL (0.6-1.0); GFR 106.3; POTASSIUM 3.9 mmol/L (3.5-5.1); TOTAL BILIRUBIN 0.6 mg/dL (0.2-1.0); TOTAL PROTEIN 4.4 g/dL (6.4-8.2)
--- NOTE | 2019-10-07 07:15 | PDOC ---
Infectious Disease Note Subjective Subjective Doing ok. A little nausea at times. pain ok Vital Sign Vital Signs Vital Signs Date Time Temp Pulse Resp B/P (MAP) Pulse Ox O2 Delivery O2 Flow Rate FiO2 10/07/19 06:00 109 20 96/62 (73) 100 Ventilator 10/07/19 04:00 98.3 98.3 10/06/19 20:04 9.0 Physical Exam PHYSICAL EXAM GENERAL: More Alert and looks comfortable HEENT: NGT in place. Oral mucosa dry NECK: Tracheostomy LUNGS: Diminished aeration bases, no accessory muscle use - CT on left with clear fluid HEART: S1, S2, tachy, regular ABDOMEN: Mild distention, bowel sounds present, soft, grimaces to palpation Right lateral side drainage bag, 3 drains with bloodstained drainage. Left side with drainage from previous drain site - dressed - clean and dry : Lind ( 09/24) EXTREMITIES: Trace edema .no cyanosis. Mild erythema on RUE - better SKIN: no signs of gen rash [employer]: Alert and responsive LUE-PICC (09/15) without signs of complications - previous art line site without complications Labs Lab Laboratory Tests Test 10/06/19 08:04 10/06/19 11:45 10/06/19 17:31 10/07/19 01:26 O2 Saturation 98 % (92-99) Arterial Blood pH 7.49 (7.35-7.45) Arterial Blood pCO2 at Patient Temp 28 mmHg (35-46) Arterial Blood pO2 at Patient Temp 116 mmHg (75-108) Arterial Blood HCO3 21 mmol/L (21-28) Arterial Blood Base Excess -2 mmol/L (-3-3) FiO2 35% Glucose (Fingerstick) 148 mg/dL (70-99) 135 mg/dL (70-99) 116 mg/dL (70-99) Test 10/07/19 06:20 10/07/19 06:30 White Blood Count 8.9 x10^3/uL (4.0-11.0) Red Blood Count 2.93 x10^6/uL (3.50-5.40) Hemoglobin 8.2 g/dL (12.0-15.5) Hematocrit 24.9 % (36.0-47.0) Mean Corpuscular Volume 85 fL (79-100) Mean Corpuscular Hemoglobin 28 pg (25-35) Mean Corpuscular Hemoglobin Concent 33 g/dL (31-37) Red Cell Distribution Width 18.2 % (11.5-14.5) Platelet Count 452 x10^3/uL (140-400) Neutrophils (%) (Auto) 77 % (31-73) Lymphocytes (%) (Auto) 15 % (24-48) Monocytes (%) (Auto) 7 % (0-9) Eosinophils (%) (Auto) 1 % (0-3) Basophils (%) (Auto) 0 % (0-3) Neutrophils # (Auto) 6.8 x10^3/uL (1.8-7.7) Lymphocytes # (Auto) 1.3 x10^3/uL (1.0-4.8) Monocytes # (Auto) 0.6 x10^3/uL (0.0-1.1) Eosinophils # (Auto) 0.1 x10^3/uL (0.0-0.7) Basophils # (Auto) 0.0 x10^3/uL (0.0-0.2) Glucose (Fingerstick) 102 mg/dL (70-99) Micro 6/7 GRAM STAIN Final Final GRAM NEGATIVE RODS:MODERATE SQUAMOUS EPI CELL:NOT APPLICABLE PMN (WBCs):RARE YEAST:MODERATE Unless otherwise specified, Testing Performed by: [address] [address] For Inquires, the Physician may contact the Microbiology department at [phone] ANAEROBIC-AEROBIC CULTURE Preliminary Preliminary MANY GRAM NEGATIVE RODS on 09/27/19 at 1158 FINAL ID= [PSEUDOMONAS AERUGINOSA] PSEUDOMONAS AERUGINOSA ANTIMICROBIAL SUSCEPTIBILITY Preliminary Comment NEG ALEXANDRA 56 PSEUDOMONAS AERUGINOSA ANTIBIOTIC RESULT INTERPRETATION AMIKACIN <=16 S AZTREONAM >16 R CEFTAZIDIME >16 R CIPROFLOXACIN <=0.25 S CEFEPIME 16 I CEFTAZIDIME/AVIBACTAM <=4 S GENTAMICIN <=2 S CONTINUED ON NEXT PAGE RUN DATE: 09/29/19 [facility] *LIVE* PAGE 2 RUN TIME: 1016 Specimen Inquiry SPEC: [id number] PATIENT: SCOTT CUELLAR [id number] (Sony alvarez) Procedure Result ANTIMICROBIAL SUSCEPTIBILITY Preliminary (continued) LEVOFLOXACIN <=0.5 S MEROPENEM <=1 S PIPERACILLIN/TAZOBACTAM 64 S TOBRAMYCIN <=2 S Unless otherwise specified, Testing Performed by: [address] [place] [address] For Inquires, the Physician may contact the Microbiology department at [phone] CT Scan 09/23 IMPRESSION: 1. Removal of the percutaneous pigtail drainage catheters since the prior exam. Sequela of pancreatitis with extensive pseudocysts again demonstrated, the right-sided collections are slightly larger since the prior exam, the left-sided collections are stable. See above. 2. Moderate to large left pleural effusion with atelectasis and collapse of most of the left lower lobe, stable. Small right pleural effusion is stable. 3. Gallstone. Objective Assessment Patient with prolonged hospitalization Multiple medical problems Multiple surgical procedures Vomited overnight copious amounts Fever 10/05 WBC nml - Added cipro 10/05 with h/p res PSA in sputum maybe sec to ileus given her vomiting. Art- line placed 09/24 - d/c'd 10/05 S/[address] CT on left 10/02 890 ml overnight 09/24 fluid cult PSAE (MDRO),yeast moderate s/p drain times three R Cefepime, Zosyn ALEXANDRA < 64 - getting Tpa to some CXR with Left lung white-out 09/30 ? effusion PSA 10/02 in sputum I Meropenem Acute hypoxic resp failure on 35 % and 5 PEEP - stable Transaminitis - mild Fever improving Acute pancreatitis with persistent necrosis CT a/p 07/27 Increased ascites. 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 Sequela of pancreatitis with extensive pseudocysts again demonstrated, the right-sided collections are slightly larger since the prior exam, the left-sided collections are stable. Cholelithiasis with thickening of the gallbladder wall. Leucocytosis - better JUANA,Hyperkalemia, Metabolic acidosis off dialysis Acute hypoxic resp failure ,bilateral pleural effusion and atelectasis hypocalcemia Prediabetes HTN s/p trach S/p thoracenteis 08/29 Plan Plan of Care Fluid balance per primary - Sputum from 09/30 - growing PSA - may be colonization I to Meropenem and clinically stable from resp standpoint. Continue meropenem, has MDRP PSAE September 24 from abd cont micafungin September 24 Follow-up cultures fluid for yeast IR eval abd drains Monitor a.m. labs - CMP/CBC General surgery following Monitor drain output Maintain aspiration precaution Supportive care MANISHA micro [phone] Critically ill D/w nursing WILLY BARAKAT MD Oct 07, 2019 07:15
[2019-10-07] MEDS: PANTOPRAZOLE IV PUSH 40 MG VIAL. IVP SCH (08:34)
[2019-10-07] MEDS: MEROPENEM 1 GM in IV NORMAL SALINE 100ML 100 ML IV SCH ×2 (08:35→22:08)
[2019-10-07] MEDS: PROCHLORPERAZINE 10 MG/2 ML VIAL. IV PRN (08:35)
[2019-10-07] MEDS: ACETYLCYSTEINE 20% for RESP TX 600 MG/3 ML. NEB SCH (09:33)
[2019-10-07] MEDS: CIPROFLOXACIN 400MG PREMIX 200 ML IV SCH ×2 (09:50→22:08)
--- NOTE | 2019-10-07 10:05 | PDOC ---
PROGRESS NOTES Chief Complaint Chief Complaint impression History of Present Illness 48yo F w/ PMHx HTN, prediabetes who presented the emergency room complaints of abdominal pain. Patient described off and on 3 days. She states is constant, described as a squeezing sensation in a band-like distribution. + nausea, vomiting. She denies any fever or diarrhea. Patient denies any abdominal surgical procedures. She stateed is worse with movements, car ride. Pain initially was upper abdomen however now pretty much generalized. Last bowel movement was 07/03/2019. Nothing makes her pain better. Patient denies any shortness of breath. She does state the pain moves into her chest. Denies any headache or visual changes. Lipase 45098, AST 401, ALT 249, Bilirubin 1.4. CT abdomen confirms pancreatic inflammation, peripancreatic fluid and inflammatory changes around the pancreas consistent with pancreatitis. Cholelithiasis and 1.4cm uterine fibroid as well as possible left salpingitis. Admitted for further care impression Acute hypoxic Respiratory failure required mechanical ventilation Tracheostomy bilateral pleural effusions/pulm edema s/p Throacentesis on 10/03/2019 Severe Acute gallstone pancreatitis (not a surgical candidate at this time) with necrosis Acute kidney failure now requiring dialysis Gallstones (Calculus of gallbladder with acute cholecystitis without obstruction) HTN Intractable pain Intractable nausea Covid 19 negative. Acute on chronic anemia EEG: No seizure activityFever - better currently - intermittent could be from underlying pancreatitis blood cults 08/21 - neg so far ? Ileus with vomiting Abd distention - U/S and CT reviewed s/p 0.4 L of opaque, debris-containing ascites was removed 08/23 Acute pancreatitis with persistent necrosis A large fluid collection in the pancreatic bed has slightly decreased in size, described below, the pancreas itself is difficult to visualize, which could be due to necrosis or obscuration of pancreatic parenchyma from the surrounding fluid collection.10/02 - 08/14 status post KAYLIN drain placement + C paropsilosis. s/p additional drains 08/25 Anemia - S/p PRBCs Cholelithiasis with thickening of the gallbladder wall. Leucocytosis improving JUANA, hyperkalemia, Metabolic acidosis off dialysis hypocalcemia Prediabetes HTN s/p trach ESRD on HD Hyperglycemia Moderate to large left pleural effusion with atelectasis and collapse of most of the left lower lobe, stable 10/05 FEVER 101, BLOOD CULTURE X 2 10/06 iv cipro added FEN - PPX - SCDs, off lovenox currently, high risk for thrombosis but in light of her recent anemia and need for transfusion the risks do not outweigh benefits at this time. will continue to evaluate on a daily basis FULL CODE Dispo - ICU, critically ill BACK ON VENT 10/04 vent // no distress iv albumin 10/06 33 MIN CC TIME History of Present Illness History of Present Illness 09/25: IR placed drain on 09/24. 4u PRBC after Hb drop. Hb 8.8 today. Off Levophed this morning. T-max 100.3. Much more lethargic today. CXR with left sided diffuse infiltrates. 09/26: Tachycardic overnight into the 140s. NGT clamped. On BIPAP currently. Drains with serosanguinous discharge. WBC 8, Tmax 99.6F. 09/27: Seen on trach shield in ICU. Hypertensive and tachycardic. Labs stable. blood stained drainage from drains. Afebrile. 09/28: Seen on trach shield in ICU. She is a bit confused, drowsy, but when sitting up is conversational and confusion somewhat clears. She is asking for more pain medication. Stable drains, still very tachy.Na 147 09/29: Patient vomited overnight. Aspirated. Tried to pull her trach out, she was told she would without her trach, she said "I know, I just want to go home". Hb 7.6. Afebrile, still very tachycardic. 1055ml out of right sided KAYLIN drain 09/30: Overnight hypoxic, on BIPAP. CXR with left sided white out lung. Significant mucous plug suctioned by RT with improvement in her ABG after 2 lucille rs this morning. Not really active, tired, lethargic. 890ml out of drains past 24 hours. On vent. D/w daughter bedside. 10/01: Still on vent overnight with copious pulmonary drainage on suctioning. Labs stable, UOP stable 1L. Drain output still significant with 1505mL. She has shown her phone password [id number] and made it clear she does not want her daughters to access her phone at this time. 6:15: Patient quite frail, she has had such a lengthy hospital stay that she is certainly depressed and as documented 3 days ago is wanting to go home. Most likely patient is also tired of being hospitalized with an end point no where in sight. Reassurance and encouragement provided during my visit. Plans for thoracentesis later in the day 10/03: No acute events reported overnight, case discussed with nursing staff patient in no acute distress, complaints of the abdomimal pain during my visit, patient is quite depressed, reassurance has been provided, discussed with nursing staff at bedside, replace electrolytes 10/04 off vent / on TS , no distress 10/06 Patient seen and examined ICU BED critically ill concerned about her long-term prognosis Sputum from 09/30 - growing PSA - may be colonization I to Meropenem add Cipro Continue meropenem, has MDRP PSAE September 24 from abd cont micafungin September 24 bleeding from Sx. site RLQ and firmness) max 1003 33 MIN CC TIME Date: Aug 15, 2019 Pre-Op Diagnosis: Necrotizing pancreatitis Post-Op Diagnosis: same Procedure Performed: laparoscopic exploration Surgeon: Renzo Servin Asst: Dr. Arturo Harris Anesthesia Type: GETA plus local Blood Loss: 50 Specimans Obtained: cultures, debris Findings: 1000 cc ascites suctioned off, cultures sent, diffuse debris, obliteration of surgical planes preventing any meaningful exploration 09/22/2019 Patient seen and examined in the ICU She remains critically ill is is extremely weak Chart reviewed Discussed with RN We decided to try some Prozac as she does seem depressed On IV TPN Still has NG tube 09/21/2019 Patient seen and examined in the ICU She remains critically ill We have been trying to hold off on her Ativan for the past 24 hours She is a little more awake but shaky and agitated and anxious seems depressed Discussed with RN Chart reviewed 09/20/2019 Patient seen and examined in the ICU She is a little more alert today but still quite ill Appears clammy and pale and depressed/anxious Discussed with RN Chart reviewed 09/19/2019 Patient seen and examined in the ICU She appears extremely ill She is tachypneic at 35 respirations per minute and tachycardic at 132 bpm She is extremely encephalopathic and shaky She appears clammy Chart reviewed Discussed with RN Prognosis extremely guarded at best 09/18/2019 Patient still in ICU Resting with no apparent distress Chart reviewed 09/17/2019 Patient seen and examined in the ICU She is wiping her face with a cough Discussed with RN Chart reviewed We hope to get her out of the ICU later today if possible 09/16/2019 Patient seen and examined in the ICU once again She is back on NG suction On IV Zosyn Has IV TPN Sedated with Precedex but anxious still Appears somewhat clammy and pale Chart reviewed Discussed with RN She remains critically ill BRIEF OPERATIVE NOTE Pre-Op Diagnosis Pancreatitis with pseudocysts, suspected infection Post-Op Diagnosis same Procedure Performed CT abdominal Drains x 3 Surgeon Tesfaye Anesthesia Type: Conscious Sedation Findings 3 abdominal drains, 14F, with turbid pancreatic fluid and necrotic debris in each. Complications No immediate 08/26: Patient today somewhat restless and having bilious secretions from ET tube, imaging studies ordered, discussed with risk and insurance consultant. Pretty poor prognosis, hopefully is not a fistula, poor surgical candidate. 08/27: Imaging with no acute events, she seems more stable today compared to yesterday. Encouraged as much activity as possible patient at high risk for severe depression. Vitals Vitals Vital Signs Date Time Temp Pulse Resp B/P (MAP) Pulse Ox O2 Delivery O2 Flow Rate FiO2 10/07/19 10:00 98 Tracheal Collar 9.0 10/07/19 09:00 112 20 104/61 (75) 10/07/19 08:00 100.7 100.7 Physical Exam Physical Exam GENERAL: More Alert and looks comfortable HEENT: NGT in place. Oral mucosa dry NECK: Tracheostomy LUNGS: Diminished aeration bases, no accessory muscle use - CT on left with clear fluid HEART: S1, S2, tachy, regular ABDOMEN: Mild distention, bowel sounds present, soft, grimaces to palpation Right lateral side drainage bag, 3 drains with bloodstained drainage. Left side with drainage from previous drain site - dressed - clean and dry bleeding from Sx. site RLQ and firmness) : Lind ( 09/24) EXTREMITIES: Trace edema .no cyanosis. Mild erythema on RUE - better SKIN: no signs of gen rash [employer]ER: Alert and responsive LUE-PICC (09/15) without signs of complications - previous art line site without complications General: Oriented X3, Cooperative, No acute distress Heart: Regular rate, Normal S1, Normal S2, No murmurs, Gallops Lungs: Other (diminshed in bases, Rhonci in LLL) Abdomen: Soft, Other (drains in place) Extremities: No clubbing, No cyanosis, No edema, Normal pulses, No tenderness/swelling Skin: Other (warm, dry) Labs LABS SEX: F EXAM STATUS: ADM IN ORD. PHYSICIAN: WILLY BARAKAT MD REASON: Pleural effusion and f/u abd abscesses PROCEDURE: CT CHEST ABDOMEN PELVIS WO EXAM: CT CHEST, ABDOMEN, AND PELVIS WITHOUT CONTRAST INDICATION: Pleural effusion and follow-up abdominal abscess COMPARISON: CT abdomen and pelvis 09/24/2019 and 09/14/2019. TECHNIQUE: Helical CT imaging performed of the chest, abdomen and pelvis without the use of intravenous contrast. Sagittal and coronal reformats were obtained. One or more of the following individualized dose reduction techniques were utilized for this examination: 1. Automated exposure control 2. Adjustment of the mA and/or kV according to patient size 3. Use of iterative reconstruction technique. FINDINGS: CHEST: Thyroid gland and thoracic inlet: Visualized portion of the thyroid gland is normal. Heart and great vessels: Heart is normal in size. No pericardial effusion. Thoracic aorta is normal in caliber. A left PICC terminates at the superior cavoatrial junction. Mediastinum and jair: No lymphadenopathy. A tracheostomy tube terminates at the level of the clavicular heads. A nasogastric tube terminates in the gastric fundus. Lungs and pleura: Slightly increased moderate to large left pleural effusion, predominantly layering with a small partially loculated component anterolaterally, and consolidation or atelectasis of the entire left lower lobe. Mild opacities in the left upper lobe. There is a small right pleural effusion with mild consolidative opacities, also mildly increased from prior exam. Chest wall and axillae: Bilateral breast implants are noted. No axillary lymphadenopathy. Bones: No acute osseous abnormality. ABDOMEN AND PELVIS: Liver: Liver is normal in size. A 1.2 cm hypodensity in the medial left hepatic lobe is unchanged. Gallbladder/Biliary Tree: Cholelithiasis is unchanged. No biliary duct dilatation. Pancreas: A large fluid collection in the pancreatic bed has slightly decreased in size, described below, the pancreas itself is difficult to visualize, which could be due to necrosis or obscuration of pancreatic parenchyma from the surrounding fluid collection. Evaluation is also limited due to lack of intravenous contrast. There is no gas within the pancreatic bed. Spleen: Grossly normal. Adrenal Glands: Normal. Kidneys/Ureters/Bladder: There is unchanged mild right hydronephrosis. No urolithiasis. Ureters not well visualized due to fluid collections. The left kidney is normal. Bladder is decompressed around a Lind catheter. Reproductive Organs: Uterus is anteverted. No adnexal mass. Stomach, small bowel, and colon: Nasogastric tube terminates in the gastric fundus. Stomach, small bowel, and colon are not well evaluated due to lack of IV and oral contrast and presence of multiple adjacent fluid collections. There is no evidence of bowel obstruction. Vasculature: Abdominal aorta is normal in caliber. Lymph Nodes: No lymphadenopathy. Peritoneum and retroperitoneum: There are multiple large fluid collections throughout the abdomen and pelvis, some of which are likely communicating with each other. The fluid collection in the pancreatic bed involving the lesser sac is slightly smaller, now measuring approximately 12.7 x 4.5 cm at the level of the lesser sac (image 38, series 4), previously 13.4 x 5.5 cm. There is a new pigtail catheter in this fluid collection. This fluid collection likely communicates with a fluid collection involving the right retroperitoneal space and right psoas muscle. This fluid collection measures approximately 10.1 x 9.4 cm, previously 10.3 x 9.7 cm. There is a new pigtail catheter in this collection. A fluid collection in the left paracolic gutter involving the left psoas muscle has slightly decreased in size, this measures 10.4 x 6.7 cm at the level of the inferior left renal pole, previously 11.7 x 6.7 cm. There is a new pleural catheter in this collection. There is a suspected additional fluid collection in the lower midpelvis between loops of bowel and abutting the bladder and uterus, measuring approximately 10.0 x 4.0 cm, unchanged. This could be confirmed by oral contrast to differentiate from a loop of bowel. No definite new fluid collection. There is a persistent small amount of free fluid in the pelvis. No free air. Bones: No acute osseous abnormality. Miscellaneous: Moderate new anasarca. IMPRESSION: 1. Sequela of pancreatitis with extensive pseudocyst/fluid collections throughout the abdomen and pelvis including a large peripancreatic fluid collection and bilateral retroperitoneal collections involving the psoas muscles. Fluid collections are unchanged to minimally decreased from CT 09/24/2019. There are 3 new pigtail drainage catheters in place. IV or oral contrast may be useful to better evaluate, if possible. 2. Slightly increased moderate to large partially loculated left pleural effusion with atelectasis or consolidation of the left lower lobe. Slightly increased small right pleural effusion and mild right pulmonary opacities. 3. Mild right hydronephrosis. 4. Cholelithiasis. 5. New anasarca. Electronically signed by: Kena Foote MD (10/03/2019 10:37 AM) [id number] DICTATED and SIGNED BY: KENA FOOTE MD DATE: 10/03/19 1037 Laboratory Tests Test 10/06/19 11:45 10/06/19 17:31 10/07/19 01:26 10/07/19 06:20 Glucose (Fingerstick) 148 mg/dL (70-99) 135 mg/dL (70-99) 116 mg/dL (70-99) White Blood Count 8.9 x10^3/uL (4.0-11.0) Red Blood Count 2.93 x10^6/uL (3.50-5.40) Hemoglobin 8.2 g/dL (12.0-15.5) Hematocrit 24.9 % (36.0-47.0) Mean Corpuscular Volume 85 fL (79-100) Mean Corpuscular Hemoglobin 28 pg (25-35) Mean Corpuscular Hemoglobin Concent 33 g/dL (31-37) Red Cell Distribution Width 18.2 % (11.5-14.5) Platelet Count 452 x10^3/uL (140-400) Neutrophils (%) (Auto) 77 % (31-73) Lymphocytes (%) (Auto) 15 % (24-48) Monocytes (%) (Auto) 7 % (0-9) Eosinophils (%) (Auto) 1 % (0-3) Basophils (%) (Auto) 0 % (0-3) Neutrophils # (Auto) 6.8 x10^3/uL (1.8-7.7) Lymphocytes # (Auto) 1.3 x10^3/uL (1.0-4.8) Monocytes # (Auto) 0.6 x10^3/uL (0.0-1.1) Eosinophils # (Auto) 0.1 x10^3/uL (0.0-0.7) Basophils # (Auto) 0.0 x10^3/uL (0.0-0.2) Sodium Level 137 mmol/L (136-145) Potassium Level 3.9 mmol/L (3.5-5.1) Chloride Level 105 mmol/L (98-107) Carbon Dioxide Level 26 mmol/L (21-32) Anion Gap 6 (6-14) Blood Urea Nitrogen 18 mg/dL (7-20) Creatinine 0.6 mg/dL (0.6-1.0) Estimated GFR (Cockcroft-Gault) 106.3 BUN/Creatinine Ratio 30 (6-20) Glucose Level 109 mg/dL (70-99) Calcium Level 9.3 mg/dL (8.5-10.1) Magnesium Level 1.9 mg/dL (1.8-2.4) Total Bilirubin 0.6 mg/dL (0.2-1.0) Aspartate Amino Transf (AST/SGOT) 17 U/L (15-37) Alanine Aminotransferase (ALT/SGPT) 18 U/L (14-59) Alkaline Phosphatase 92 U/L (46-116) Total Protein 4.4 g/dL (6.4-8.2) Albumin 1.2 g/dL (3.4-5.0) Albumin/Globulin Ratio 0.4 (1.0-1.7) Test 10/07/19 06:30 Glucose (Fingerstick) 102 mg/dL (70-99) Assessment and Plan Assessmemt and Plan Problems Medical Problems: (1) Acute pancreatitis Status: Acute (2) Cholelithiasis Status: Acute Comment Review of Relevant I have reviewed the following items kolby (where applicable) has been applied. Labs Laboratory Tests Test 10/05/19 11:59 10/05/19 18:34 10/06/19 01:35 10/06/19 06:20 Glucose (Fingerstick) 146 mg/dL (70-99) 167 mg/dL (70-99) 159 mg/dL (70-99) White Blood Count 10.0 x10^3/uL (4.0-11.0) Red Blood Count 3.06 x10^6/uL (3.50-5.40) Hemoglobin 8.7 g/dL (12.0-15.5) Hematocrit 26.0 % (36.0-47.0) Mean Corpuscular Volume 85 fL (79-100) Mean Corpuscular Hemoglobin 28 pg (25-35) Mean Corpuscular Hemoglobin Concent 33 g/dL (31-37) Red Cell Distribution Width 18.2 % (11.5-14.5) Platelet Count 469 x10^3/uL (140-400) Neutrophils (%) (Auto) 81 % (31-73) Lymphocytes (%) (Auto) 13 % (24-48) Monocytes (%) (Auto) 5 % (0-9) Eosinophils (%) (Auto) 1 % (0-3) Basophils (%) (Auto) 0 % (0-3) Neutrophils # (Auto) 8.1 x10^3/uL (1.8-7.7) Lymphocytes # (Auto) 1.3 x10^3/uL (1.0-4.8) Monocytes # (Auto) 0.4 x10^3/uL (0.0-1.1) Eosinophils # (Auto) 0.1 x10^3/uL (0.0-0.7) Basophils # (Auto) 0.0 x10^3/uL (0.0-0.2) Sodium Level 137 mmol/L (136-145) Potassium Level 3.8 mmol/L (3.5-5.1) Chloride Level 106 mmol/L (98-107) Carbon Dioxide Level 24 mmol/L (21-32) Anion Gap 7 (6-14) Blood Urea Nitrogen 20 mg/dL (7-20) Creatinine 0.6 mg/dL (0.6-1.0) Estimated GFR (Cockcroft-Gault) 106.3 Glucose Level 137 mg/dL (70-99) Calcium Level 8.8 mg/dL (8.5-10.1) Magnesium Level 1.7 mg/dL (1.8-2.4) Test 10/06/19 08:04 10/06/19 11:45 10/06/19 17:31 6/19/20 01:26 O2 Saturation 98 % (92-99) Arterial Blood pH 7.49 (7.35-7.45) Arterial Blood pCO2 at Patient Temp 28 mmHg (35-46) Arterial Blood pO2 at Patient Temp 116 mmHg (75-108) Arterial Blood HCO3 21 mmol/L (21-28) Arterial Blood Base Excess -2 mmol/L (-3-3) FiO2 35% Glucose (Fingerstick) 148 mg/dL (70-99) 135 mg/dL (70-99) 116 mg/dL (70-99) Test 10/07/19 06:20 10/07/19 06:30 White Blood Count 8.9 x10^3/uL (4.0-11.0) Red Blood Count 2.93 x10^6/uL (3.50-5.40) Hemoglobin 8.2 g/dL (12.0-15.5) Hematocrit 24.9 % (36.0-47.0) Mean Corpuscular Volume 85 fL (79-100) Mean Corpuscular Hemoglobin 28 pg (25-35) Mean Corpuscular Hemoglobin Concent 33 g/dL (31-37) Red Cell Distribution Width 18.2 % (11.5-14.5) Platelet Count 452 x10^3/uL (140-400) Neutrophils (%) (Auto) 77 % (31-73) Lymphocytes (%) (Auto) 15 % (24-48) Monocytes (%) (Auto) 7 % (0-9) Eosinophils (%) (Auto) 1 % (0-3) Basophils (%) (Auto) 0 % (0-3) Neutrophils # (Auto) 6.8 x10^3/uL (1.8-7.7) Lymphocytes # (Auto) 1.3 x10^3/uL (1.0-4.8) Monocytes # (Auto) 0.6 x10^3/uL (0.0-1.1) Eosinophils # (Auto) 0.1 x10^3/uL (0.0-0.7) Basophils # (Auto) 0.0 x10^3/uL (0.0-0.2) Sodium Level 137 mmol/L (136-145) Potassium Level 3.9 mmol/L (3.5-5.1) Chloride Level 105 mmol/L (98-107) Carbon Dioxide Level 26 mmol/L (21-32) Anion Gap 6 (6-14) Blood Urea Nitrogen 18 mg/dL (7-20) Creatinine 0.6 mg/dL (0.6-1.0) Estimated GFR (Cockcroft-Gault) 106.3 BUN/Creatinine Ratio 30 (6-20) Glucose Level 109 mg/dL (70-99) Calcium Level 9.3 mg/dL (8.5-10.1) Magnesium Level 1.9 mg/dL (1.8-2.4) Total Bilirubin 0.6 mg/dL (0.2-1.0) Aspartate Amino Transf (AST/SGOT) 17 U/L (15-37) Alanine Aminotransferase (ALT/SGPT) 18 U/L (14-59) Alkaline Phosphatase 92 U/L (46-116) Total Protein 4.4 g/dL (6.4-8.2) Albumin 1.2 g/dL (3.4-5.0) Albumin/Globulin Ratio 0.4 (1.0-1.7) Glucose (Fingerstick) 102 mg/dL (70-99) Laboratory Tests Test 10/06/19 11:45 10/06/19 17:31 10/07/19 01:26 10/07/19 06:20 Glucose (Fingerstick) 148 mg/dL (70-99) 135 mg/dL (70-99) 116 mg/dL (70-99) White Blood Count 8.9 x10^3/uL (4.0-11.0) Red Blood Count 2.93 x10^6/uL (3.50-5.40) Hemoglobin 8.2 g/dL (12.0-15.5) Hematocrit 24.9 % (36.0-47.0) Mean Corpuscular Volume 85 fL (79-100) Mean Corpuscular Hemoglobin 28 pg (25-35) Mean Corpuscular Hemoglobin Concent 33 g/dL (31-37) Red Cell Distribution Width 18.2 % (11.5-14.5) Platelet Count 452 x10^3/uL (140-400) Neutrophils (%) (Auto) 77 % (31-73) Lymphocytes (%) (Auto) 15 % (24-48) Monocytes (%) (Auto) 7 % (0-9) Eosinophils (%) (Auto) 1 % (0-3) Basophils (%) (Auto) 0 % (0-3) Neutrophils # (Auto) 6.8 x10^3/uL (1.8-7.7) Lymphocytes # (Auto) 1.3 x10^3/uL (1.0-4.8) Monocytes # (Auto) 0.6 x10^3/uL (0.0-1.1) Eosinophils # (Auto) 0.1 x10^3/uL (0.0-0.7) Basophils # (Auto) 0.0 x10^3/uL (0.0-0.2) Sodium Level 137 mmol/L (136-145) Potassium Level 3.9 mmol/L (3.5-5.1) Chloride Level 105 mmol/L (98-107) Carbon Dioxide Level 26 mmol/L (21-32) Anion Gap 6 (6-14) Blood Urea Nitrogen 18 mg/dL (7-20) Creatinine 0.6 mg/dL (0.6-1.0) Estimated GFR (Cockcroft-Gault) 106.3 BUN/Creatinine Ratio 30 (-20) Glucose Level 109 mg/dL (70-99) Calcium Level 9.3 mg/dL (8.5-10.1) Magnesium Level 1.9 mg/dL (1.8-2.4) Total Bilirubin 0.6 mg/dL (0.2-1.0) Aspartate Amino Transf (AST/SGOT) 17 U/L (15-37) Alanine Aminotransferase (ALT/SGPT) 18 U/L (14-59) Alkaline Phosphatase 92 U/L (46-116) Total Protein 4.4 g/dL (6.4-8.2) Albumin 1.2 g/dL (3.4-5.0) Albumin/Globulin Ratio 0.4 (1.0-1.7) Test 10/07/19 06:30 Glucose (Fingerstick) 102 mg/dL (70-99) Microbiology 10/03/19 Gram Stain - Final, Resulted 10/03/19 Aerobic and Anaerobic Culture - Preliminary, Resulted 10/01/19 Gram Stain Evaluation - Final, Complete 10/01/19 Respiratory Culture - Final, Complete 10/01/19 Antimicrobic Susceptibility - Final, Complete 09/25/19 Blood Culture - Final, Complete NO GROWTH AFTER 5 DAYS 09/25/19 Urine Culture - Final, Complete 09/17/19 Gram Stain - Final, Complete 09/17/19 Aerobic Culture - Final, Complete Medications Current Medications Sodium Chloride 1,000 ml @ 1,000 mls/hr Q1H IV Last administered on 07/04/19at 03:00; Start 07/04/19 at 03:00; Stop 07/04/19 at 03:59; Status DC Ondansetron HCl (Zofran) 4 mg 1X ONCE IVP Last administered on 07/04/19at 03:27; Start 07/04/19 at 03:00; Stop 07/04/19 at 03:01; Status DC Morphine Sulfate (Morphine Sulfate) 4 mg 1X ONCE IV ; Start 07/04/19 at 03:00; Stop 07/04/19 at 03:01; Status Cancel Ketorolac Tromethamine (Toradol 30mg Vial) 30 mg 1X ONCE IV Last administered on 07/04/19at 02:54; Start 07/04/19 at 03:00; Stop 07/04/19 at 03:01; Status DC Fentanyl Citrate (Fentanyl 2ml Vial) 25 mcg 1X ONCE IVP Last administered on 07/04/19at 03:23; Start 07/04/19 at 03:30; Stop 07/04/19 at 03:31; Status DC Fentanyl Citrate (Fentanyl 2ml Vial) 100 mcg STK-MED ONCE .ROUTE ; Start 07/04/19 at 03:18; Stop 07/04/19 at 03:18; Status DC Iohexol (Omnipaque 350 Mg/ml) 90 ml 1X ONCE IV Last administered on 07/04/19at 03:25; Start 07/04/19 at 03:30; Stop 07/04/19 at 03:31; Status DC Info (CONTRAST GIVEN -- Rx MONITORING) 1 each PRN DAILY PRN MC SEE COMMENTS; Start 07/04/19 at 03:30; Stop 07/06/19 at 03:29; Status DC Hydromorphone HCl (Dilaudid) 0.5 mg 1X ONCE IV Last administered on 07/04/19at 03:55; Start 07/04/19 at 04:30; Stop 07/04/19 at 04:32; Status DC Ondansetron HCl (Zofran) 4 mg PRN Q8HRS PRN IV NAUSEA/VOMITING 1ST CHOICE; Start 07/04/19 at 05:00; Stop 07/04/19 at 09:27; Status DC Morphine Sulfate (Morphine Sulfate) 2 mg PRN Q2HR PRN IV SEVERE PAIN 7-10 Last administered on 07/05/19at 12:26; Start 07/04/19 at 05:00; Stop 07/05/19 at 14:15; Status DC Sodium Chloride 1,000 ml @ 125 mls/hr Q8H IV Last administered on 07/04/19at 20:56; Start 07/04/19 at 05:00; Stop 07/05/19 at 04:59; Status DC Hydromorphone HCl (Dilaudid) 0.5 mg PRN Q3HRS PRN IV SEVERE PAIN 7-10 Last administered on 07/05/19at 10:06; Start 07/04/19 at 05:00; Stop 07/05/19 at 12:01; Status DC Piperacillin Sod/ Tazobactam Sod 4.5 gm/Sodium Chloride 100 ml @ 200 mls/hr 1X ONCE IV Last administered on 07/04/19at 05:44; Start 07/04/19 at 06:00; Stop 07/04/19 at 06:29; Status DC Ondansetron HCl (Zofran) 4 mg PRN Q4HRS PRN IV NAUSEA/VOMITING 1ST CHOICE Last administered on 10/05/19at 23:20; Start 07/04/19 at 09:30 Insulin Human Lispro (HumaLOG) 0-9 UNITS Q6HRS SQ Last administered on 10/05/19at 18:36; Start 07/04/19 at 09:30 Dextrose (Dextrose 50%-Water Syringe) 12.5 gm PRN Q15MIN PRN IV SEE COMMENTS; Start 07/04/19 at 09:30 Pantoprazole Sodium (PROTONIX VIAL for IV PUSH) 40 mg DAILYAC IVP Last administered on 10/07/19at 08:34; Start 07/04/19 at 11:30 Prochlorperazine Edisylate (Compazine) 10 mg PRN Q6HRS PRN IV NAUSEA/VOMITING, 2nd CHOICE Last administered on 10/07/19at 08:35; Start 07/04/19 at 17:45 Atenolol (Tenormin) 100 mg DAILY PO ; Start 07/05/19 at 09:00; Stop 07/04/19 at 20:08; Status DC Metoprolol Tartrate (Lopressor Vial) 2.5 mg Q6HRS IVP Last administered on 07/05/19at 05:51; Start 07/04/19 at 20:15; Stop 07/05/19 at 10:02; Status DC Metoprolol Tartrate (Lopressor Vial) 5 mg Q6HRS IVP Last administered on 07/14/19at 00:12; Start 07/05/19 at 10:15; Stop 07/16/19 at 08:48; Status DC Hydromorphone HCl (Dilaudid) 1 mg PRN Q3HRS PRN IV SEVERE PAIN 7-10 Last administered on 07/11/19at 05:13; Start 07/05/19 at 12:00; Stop 07/19/19 at 00:25; Status DC Lidocaine HCl (Buffered Lidocaine 1%) 3 ml STK-MED ONCE .ROUTE ; Start 07/05/19 at 12:55; Stop 07/05/19 at 12:56; Status DC Albumin Human 500 ml @ 125 mls/hr 1X ONCE IV Last administered on 07/05/19at 14:33; Start 07/05/19 at 14:30; Stop 07/05/19 at 18:32; Status DC Norepinephrine Bitartrate 8 mg/ Dextrose 258 ml @ 17.299 mls/ hr CONT PRN IV PER PROTOCOL Last administered on 08/02/19at 12:48; Start 07/05/19 at 15:30; Stop 08/05/19 at 09:19; Status DC Sodium Chloride 1,000 ml @ 125 mls/hr Q8H IV Last administered on 07/05/19at 21:04; Start 07/05/19 at 16:00; Stop 07/06/19 at 02:42; Status DC Albumin Human 500 ml @ 125 mls/hr PRN BID PRN IV After every 2L NSS & BP < 90mm Last administered on 09/24/19at 11:40; Start 07/05/19 at 16:00 Iohexol (Omnipaque 300 Mg/ml) 60 ml 1X ONCE IV Last administered on 07/05/19at 17:20; Start 07/05/19 at 17:00; Stop 07/05/19 at 17:01; Status DC Info (CONTRAST GIVEN -- Rx MONITORING) 1 each PRN DAILY PRN MC SEE COMMENTS; Start 07/05/19 at 17:00; Stop 07/07/19 at 16:59; Status DC Meropenem 1 gm/ Sodium Chloride 100 ml @ 200 mls/hr Q8HRS IV Last administered on 07/06/19at 05:45; Start 07/05/19 at 20:00; Stop 07/06/19 at 08:48; Status DC Furosemide (Lasix) 40 mg 1X ONCE IVP Last administered on 07/05/19at 22:12; Start 07/05/19 at 22:30; Stop 07/05/19 at 22:31; Status DC Calcium Chloride 1000 mg/Sodium Chloride 110 ml @ 220 mls/hr 1X ONCE IV Last administered on 07/05/19at 22:11; Start 07/05/19 at 22:30; Stop 07/05/19 at 22:59; Status DC Albuterol Sulfate (Ventolin Neb Soln) 2.5 mg 1X ONCE NEB Last administered on 07/06/19at 00:56; Start 07/05/19 at 22:30; Stop 07/05/19 at 22:31; Status DC Insulin Human Regular (HumuLIN R VIAL) 5 unit 1X ONCE IV Last administered on 07/05/19at 22:14; Start 07/05/19 at 22:30; Stop 07/05/19 at 22:31; Status DC Magnesium Sulfate 50 ml @ 25 mls/hr 1X ONCE IV Last administered on 07/06/19at 02:57; Start 07/06/19 at 03:00; Stop 07/06/19 at 04:59; Status DC Calcium Gluconate 1000 mg/Sodium Chloride 110 ml @ 220 mls/hr 1X ONCE IV Last administered on 07/06/19at 02:46; Start 07/06/19 at 03:00; Stop 07/06/19 at 03:29; Status DC Sodium Chloride 1,000 ml @ 200 mls/hr Q5H IV Last administered on 07/06/19at 02:46; Start 07/06/19 at 03:00; Stop 07/06/19 at 10:21; Status DC Calcium Gluconate 1000 mg/Sodium Chloride 110 ml @ 220 mls/hr 1X ONCE IV Last administered on 07/06/19at 03:21; Start 07/06/19 at 03:30; Stop 07/06/19 at 03:59; Status DC Sodium Bicarbonate 50 meq/Sodium Chloride 1,050 ml @ 75 mls/hr Q14H IV Last a dministered on 07/10/19at 21:10; Start 07/06/19 at 07:30; Stop 07/11/19 at 10:28; Status DC Calcium Gluconate 2000 mg/Sodium Chloride 120 ml @ 220 mls/hr 1X ONCE IV Last administered on 07/06/19at 09:05; Start 07/06/19 at 07:30; Stop 07/06/19 at 08:02; Status DC Lidocaine HCl (Xylocaine-Mpf 1% 2ml Vial) 2 ml STK-MED ONCE .ROUTE ; Start 07/06/19 at 08:47; Stop 07/06/19 at 08:47; Status DC Meropenem 500 mg/ Sodium Chloride 50 ml @ 100 mls/hr Q12HR IV Last administered on 07/11/19at 21:01; Start 07/06/19 at 18:00; Stop 07/12/19 at 07:58; Status DC Lidocaine HCl (Buffered Lidocaine 1%) 3 ml STK-MED ONCE .ROUTE ; Start 07/06/19 at 09:46; Stop 07/06/19 at 09:46; Status DC Lidocaine HCl (Buffered Lidocaine 1%) 6 ml 1X ONCE INJ Last administered on 07/06/19at 10:26; Start 07/06/19 at 10:15; Stop 07/06/19 at 10:16; Status DC Info (Tpn Per Pharmacy) 1 each PRN DAILY PRN MC SEE COMMENTS Last administered on 10/06/19at 15:01; Start 07/06/19 at 12:00 Sodium Chloride 1,000 ml @ 1,000 mls/hr Q1H PRN IV hypotension; Start 07/06/19 at 12:07; Stop 07/06/19 at 18:06; Status DC Diphenhydramine HCl (Benadryl) 25 mg 1X PRN PRN IV ITCHING; Start 07/06/19 at 12:15; Stop 07/07/19 at 12:14; Status DC Diphenhydramine HCl (Benadryl) 25 mg 1X PRN PRN IV ITCHING; Start 07/06/19 at 12:15; Stop 07/07/19 at 12:14; Status DC Sodium Chloride 1,000 ml @ 400 mls/hr Q2H30M PRN IV PATENCY; Start 07/06/19 at 12:07; Stop 07/07/19 at 00:06; Status DC Info (PHARMACY MONITORING -- do not chart) 1 each PRN DAILY PRN MC SEE COMMENTS; Start 07/06/19 at 12:15; Stop 07/08/19 at 08:13; Status DC Sodium Chloride 90 meq/Calcium Gluconate 10 meq/ Multivitamins 10 ml/Chromium/ Copper/Manganese/ Seleni/Zn 1 ml/ Total Parenteral Nutrition/Amino Acids/Dextrose/ Fat Emulsion Intravenous 55.005 ml @ 2.292 mls/hr TPN CONT IV ; Start 07/06/19 at 22:00; Stop 07/06/19 at 12:33; Status DC Info (Tpn Per Pharmacy) 1 each PRN DAILY PRN MC SEE COMMENTS; Start 07/06/19 at 12:30; Status UNV Sodium Chloride 90 meq/Calcium Gluconate 10 meq/ Multivitamins 10 ml/Chromium/ Copper/Manganese/ Seleni/Zn 0.5 ml/ Total Parenteral Nutrition/Amino Acids/Dextrose/ Fat Emulsion Intravenous 1,512 ml @ 63 mls/hr TPN CONT IV Last administered on 07/06/19at 22:06; Start 07/06/19 at 22:00; Stop 07/07/19 at 21:59; Status DC Calcium Carbonate/ Glycine (Tums) 500 mg PRN AFTMEALHC PRN PO INDIGESTION; Start 07/06/19 at 17:45; Stop 08/31/19 at 10:25; Status DC Calcium Gluconate (Calcium Gluconate) 2,000 mg 1X ONCE IVP Last administered on 07/07/19at 02:19; Start 07/07/19 at 02:15; Stop 07/07/19 at 02:16; Status DC Calcium Chloride 3000 mg/Sodium Chloride 1,030 ml @ 50 mls/hr [id number] IV Last administered on 07/09/19at 02:17; Start 07/07/19 at 08:00; Stop 07/09/19 at 15:23; Status DC Lorazepam (Ativan Inj) 1 mg PRN Q4HRS PRN IVP ANXIETY / AGITATION, 2nd choic Last administered on 08/05/19at 03:51; Start 07/07/19 at 09:00; Stop 08/05/19 at 09:19; Status DC Sodium Chloride 1,000 ml @ 1,000 mls/hr Q1H PRN IV hypotension; Start 07/07/19 at 08:56; Stop 07/07/19 at 14:55; Status DC Albumin Human 200 ml @ 200 mls/hr 1X PRN PRN IV Hypotension; Start 07/07/19 at 09:00; Stop 07/07/19 at 14:59; Status DC Diphenhydramine HCl (Benadryl) 25 mg 1X PRN PRN IV ITCHING; Start 07/07/19 at 09:00; Stop 07/08/19 at 08:59; Status DC Diphenhydramine HCl (Benadryl) 25 mg 1X PRN PRN IV ITCHING; Start 07/07/19 at 09:00; Stop 07/08/19 at 08:59; Status DC Sodium Chloride 1,000 ml @ 400 mls/hr Q2H30M PRN IV PATENCY; Start 07/07/19 at 08:56; Stop 07/07/19 at 20:55; Status DC Info (PHARMACY MONITORING -- do not chart) 1 each PRN DAILY PRN MC SEE COMMENTS; Start 07/07/19 at 09:00; Status UNV Info (PHARMACY MONITORING -- do not chart) 1 each PRN DAILY PRN MC SEE COMMENTS; Start 07/07/19 at 09:00; Stop 07/08/19 at 08:13; Status DC Digoxin (Lanoxin) 500 mcg 1X ONCE IV Last administered on 07/07/19at 10:04; Start 07/07/19 at 10:00; Stop 07/07/19 at 10:01; Status DC Digoxin (Lanoxin) 125 mcg 1X ONCE IV Last administered on 07/07/19at 17:10; Start 07/07/19 at 18:00; Stop 07/07/19 at 18:01; Status DC Magnesium Sulfate 100 ml @ 25 mls/hr 1X ONCE IV Last administered on 07/07/19at 12:48; Start 07/07/19 at 13:00; Stop 07/07/19 at 16:59; Status DC Sodium Chloride 90 meq/Magnesium Sulfate 10 meq/ Calcium Gluconate 20 meq/ Multivitamins 10 ml/Chromium/ Copper/Manganese/ Seleni/Zn 0.5 ml/ Total Parenteral Nutrition/Amino Acids/Dextrose/ Fat Emulsion Intravenous 1,512 ml @ 63 mls/hr TPN CONT IV Last administered on 07/07/19at 22:25; Start 07/07/19 at 22:00; Stop 07/08/19 at 21:59; Status DC Sodium Chloride 1,000 ml @ 1,000 mls/hr Q1H PRN IV hypotension; Start 07/08/19 at 08:05; Stop 07/08/19 at 14:04; Status DC Albumin Human 200 ml @ 200 mls/hr 1X ONCE IV Last administered on 07/08/19at 08:57; Start 07/08/19 at 08:15; Stop 07/08/19 at 09:14; Status DC Diphenhydramine HCl (Benadryl) 25 mg 1X PRN PRN IV ITCHING; Start 07/08/19 at 08:15; Stop 07/09/19 at 08:14; Status DC Diphenhydramine HCl (Benadryl) 25 mg 1X PRN PRN IV ITCHING; Start 07/08/19 at 08:15; Stop 07/09/19 at 08:14; Status DC Sodium Chloride 1,000 ml @ 400 mls/hr Q2H30M PRN IV PATENCY; Start 07/08/19 at 08:05; Stop 07/08/19 at 20:04; Status DC Info (PHARMACY MONITORING -- do not chart) 1 each PRN DAILY PRN MC SEE COMMENTS; Start 07/08/19 at 08:15; Stop 07/12/19 at 07:57; Status DC Sodium Chloride 90 meq/Potassium Chloride 15 meq/ Potassium Phosphate 10 mmol/ Magnesium Sulfate 10 meq/Calcium Gluconate 20 meq/ Multivitamins 10 ml/Chromium/ Copper/Manganese/ Seleni/Zn 0.5 ml/ Total Parenteral Nutrition/Amino Acids/Dextrose/ Fat Emulsion Intravenous 1,512 ml @ 63 mls/hr TPN CONT IV Last administered on 07/08/19at 21:01; Start 07/08/19 at 22:00; Stop 07/09/19 at 21:59; Status DC Potassium Chloride/Water 100 ml @ 100 mls/hr 1X ONCE IV Last administered on 07/08/19at 14:09; Start 07/08/19 at 14:00; Stop 07/08/19 at 14:59; Status DC Benzocaine (Hurricaine One) 1 spray 1X ONCE MM Last administered on 07/08/19at 16:38; Start 07/08/19 at 14:30; Stop 07/08/19 at 14:31; Status DC Lidocaine HCl (Glydo (Lidocaine) Jelly) 1 ramu 1X ONCE MM Last administered on 07/08/19at 16:38; Start 07/08/19 at 14:30; Stop 07/08/19 at 14:31; Status DC Linezolid/Dextrose 300 ml @ 300 mls/hr Q12HR IV Last administered on 07/14/19at 21:04; Start 07/08/19 at 20:00; Stop 07/15/19 at 07:50; Status DC Acetaminophen (Tylenol) 650 mg PRN Q6HRS PRN PO MILD PAIN / TEMP; Start 07/09/19 at 03:30; Stop 07/09/19 at 03:36; Status DC Acetaminophen (Tylenol) 650 mg PRN Q6HRS PRN PEG MILD PAIN / TEMP Last administered on 08/04/19at 19:56; Start 07/09/19 at 03:36; Stop 08/31/19 at 10:25; Status DC Sodium Chloride 1,000 ml @ 1,000 mls/hr Q1H PRN IV hypotension; Start 07/09/19 at 07:50; Stop 07/09/19 at 13:49; Status DC Albumin Human 200 ml @ 200 mls/hr 1X PRN PRN IV Hypotension; Start 07/09/19 at 08:00; Stop 07/09/19 at 13:59; Status DC Sodium Chloride (Normal Saline Flush) 10 ml 1X PRN PRN IV AP catheter pack; Start 07/09/19 at 08:00; Stop 07/10/19 at 07:59; Status DC Sodium Chloride (Normal Saline Flush) 10 ml 1X PRN PRN IV VOCATIONAL ADVISER catheter pack; Start 07/09/19 at 08:00; Stop 07/10/19 at 07:59; Status DC Sodium Chloride 1,000 ml @ 400 mls/hr Q2H30M PRN IV PATENCY; Start 07/09/19 at 07:50; Stop 07/09/19 at 19:49; Status DC Info (PHARMACY MONITORING -- do not chart) 1 each PRN DAILY PRN MC SEE COMMENTS; Start 07/09/19 at 08:00; Status UNV Info (PHARMACY MONITORING -- do not chart) 1 each PRN DAILY PRN MC SEE COMMENTS; Start 07/09/19 at 08:00; Stop 07/11/19 at 08:25; Status DC Sodium Chloride 90 meq/Potassium Chloride 15 meq/ Potassium Phosphate 10 mmol/ Magnesium Sulfate 10 meq/Calcium Gluconate 20 meq/ Multivitamins 10 ml/Chromium/ Copper/Manganese/ Seleni/Zn 0.5 ml/ Total Parenteral Nutrition/Amino Acids/Dextrose/ Fat Emulsion Intravenous 1,512 ml @ 63 mls/hr TPN CONT IV Last administered on 07/09/19at 20:57; Start 07/09/19 at 22:00; Stop 07/10/19 at 21:59; Status DC Sodium Chloride 90 meq/Potassium Chloride 15 meq/ Potassium Phosphate 15 mmol/ Magnesium Sulfate 10 meq/Calcium Gluconate 20 meq/ Multivitamins 10 ml/Chromium/ Copper/Manganese/ Seleni/Zn 0.5 ml/ Total Parenteral Nutrition/Amino Acids/Dextrose/ Fat Emulsion Intravenous 1,512 ml @ 63 mls/hr TPN CONT IV ; Start 07/10/19 at 22:00; Stop 07/10/19 at 14:16; Status DC Sodium Chloride 90 meq/Potassium Chloride 15 meq/ Potassium Phosphate 15 mmol/ Magnesium Sulfate 10 meq/Calcium Gluconate 20 meq/ Multivitamins 10 ml/Chromium/ Copper/Manganese/ Seleni/Zn 0.5 ml/ Total Parenteral Nutrition/Amino Acids/Dextrose/ Fat Emulsion Intravenous 1,200 ml @ 50 mls/hr TPN CONT IV ; Start 07/10/19 at 22:00; Stop 07/10/19 at 14:17; Status DC Sodium Chloride 90 meq/Potassium Chloride 15 meq/ Potassium Phosphate 10 mmol/ Magnesium Sulfate 10 meq/Calcium Gluconate 20 meq/ Multivitamins 10 ml/Chromium/ Copper/Manganese/ Seleni/Zn 0.5 ml/ Total Parenteral Nutrition/Amino Acids/Dextrose/ Fat Emulsion Intravenous 1,200 ml @ 50 mls/hr TPN CONT IV Last administered on 07/10/19at 23:29; Start 07/10/19 at 22:00; Stop 07/11/19 at 21:59; Status DC Sodium Chloride 1,000 ml @ 1,000 mls/hr Q1H PRN IV hypotension; Start 07/11/19 at 07:28; Stop 07/11/19 at 13:27; Status DC Albumin Human 200 ml @ 200 mls/hr 1X ONCE IV Last administered on 07/11/19at 08:51; Start 07/11/19 at 07:30; Stop 07/11/19 at 08:29; Status DC Diphenhydramine HCl (Benadryl) 25 mg 1X PRN PRN IV ITCHING; Start 07/11/19 at 0 7:30; Stop 07/12/19 at 07:29; Status DC Diphenhydramine HCl (Benadryl) 25 mg 1X PRN PRN IV ITCHING; Start 07/11/19 at 07:30; Stop 07/12/19 at 07:29; Status DC Sodium Chloride 1,000 ml @ 400 mls/hr Q2H30M PRN IV PATENCY; Start 07/11/19 at 07:28; Stop 07/11/19 at 19:27; Status DC Info (PHARMACY MONITORING -- do not chart) 1 each PRN DAILY PRN MC SEE COMMENTS; Start 07/11/19 at 07:30; Stop 07/22/19 at 13:01; Status DC Metronidazole 100 ml @ 100 mls/hr Q6HRS IV Last administered on 07/27/19at 06:26; Start 07/11/19 at 08:30; Stop 07/27/19 at 09:58; Status DC Micafungin Sodium 100 mg/Dextrose 100 ml @ 100 mls/hr Q24H IV Last admin istered on 08/18/19at 08:18; Start 07/11/19 at 09:00; Stop 08/18/19 at 20:58; Status DC Propofol 0 ml @ As Directed STK-MED ONCE IV ; Start 07/11/19 at 07:53; Stop 07/11/19 at 07:53; Status DC Etomidate (Amidate) 20 mg STK-MED ONCE IV ; Start 07/11/19 at 07:53; Stop 07/11/19 at 07:54; Status DC Midazolam HCl (Versed) 5 mg STK-MED ONCE .ROUTE ; Start 07/11/19 at 07:57; Stop 07/11/19 at 07:57; Status DC Fentanyl Citrate 30 ml @ 0 mls/hr CONT PRN IV SEE PROTOCOL Last administered on 08/05/19at 06:12; Start 07/11/19 at 08:15; Stop 08/05/19 at 09:19; Status DC Artificial Tears (Artificial Tears) 1 drop PRN Q1HR PRN OU DRY EYE, 1st choice; Start 07/11/19 at 08:15; Stop 08/17/19 at 05:31; Status DC Midazolam HCl 50 mg/Sodium Chloride 50 ml @ 0 mls/hr CONT PRN IV SEE PROTOCOL Last administered on 07/14/19at 22:39; Start 07/11/19 at 08:15; Stop 07/16/19 at 15:59; Status DC Etomidate (Amidate) 8 mg 1X ONCE IV Last administered on 07/11/19at 08:33; Start 07/11/19 at 08:30; Stop 07/11/19 at 08:31; Status DC Succinylcholine Chloride (Anectine) 120 mg 1X ONCE IV Last administered on 07/11/19at 08:34; Start 07/11/19 at 08:30; Stop 07/11/19 at 08:31; Status DC Midazolam HCl (Versed) 5 mg 1X ONCE IV ; Start 07/11/19 at 08:30; Stop 07/11/19 at 08:31; Status DC Potassium Chloride 15 meq/ Bicarbonate Dialysis Soln w/ out KCl 5,007.5 ml @ 1,000 mls/ hr Q5H1M IV Last administered on 07/12/19at 11:11; Start 07/11/19 at 12:00; Stop 07/12/19 at 11:15; Status DC Potassium Chloride 15 meq/ Bicarbonate Dialysis Soln w/ out KCl 5,007.5 ml @ 1,000 mls/ hr Q5H1M IV Last administered on 07/12/19at 11:12; Start 07/11/19 at 12:00; Stop 07/12/19 at 11:17; Status DC Potassium Chloride 15 meq/ Bicarbonate Dialysis Soln w/ out KCl 5,007.5 ml @ 1,000 mls/ hr Q5H1M IV Last administered on 07/12/19at 11:11; Start 07/11/19 at 12:00; Stop 07/12/19 at 11:19; Status DC Sodium Chloride 90 meq/Potassium Chloride 15 meq/ Potassium Phosphate 10 mmol/ Magnesium Sulfate 10 meq/Calcium Gluconate 20 meq/ Multivitamins 10 ml/Chromium/ Copper/Manganese/ Seleni/Zn 0.5 ml/ Total Parenteral Nutrition/Amino Acids/Dextrose/ Fat Emulsion Intravenous 1,400 ml @ 58.333 mls/ hr TPN CONT IV Last administered on 07/11/19at 21:42; Start 07/11/19 at 22:00; Stop 07/12/19 at 21:59; Status DC Heparin Sodium (Porcine) (Heparin Sodium) 5,000 unit Q8HRS SQ Last administered on 07/16/19at 05:55; Start 07/11/19 at 15:00; Stop 07/16/19 at 13:28; Status DC Meropenem 500 mg/ Sodium Chloride 50 ml @ 100 mls/hr Q6HRS IV Last administered on 07/13/19at 06:00; Start 07/12/19 at 09:00; Stop 07/13/19 at 07:29; Status DC Potassium Phosphate 20 mmol/ Sodium Chloride 106.6667 ml @ 51.667 m... 1X ONCE IV Last administered on 07/12/19at 11:22; Start 07/12/19 at 10:15; Stop 07/12/19 at 12:18; Status DC Acetaminophen (Tylenol Supp) 650 mg PRN Q6HRS PRN UT MILD PAIN / TEMP > 100.3'F Last administered on 10/06/19at 10:16; Start 07/12/19 at 10:30 Potassium Chloride/Water 100 ml @ 100 mls/hr Q1H IV Last administered on 07/12/19at 12:12; Start 07/12/19 at 11:00; Stop 07/12/19 at 12:59; Status DC Potassium Chloride 20 meq/ Bicarbonate Dialysis Soln w/ out KCl 5,010 ml @ 1,000 mls/hr Q5H1M IV Last administered on 07/13/19at 08:48; Start 07/12/19 at 12:00; Stop 07/13/19 at 13:03; Status DC Potassium Chloride 20 meq/ Bicarbonate Dialysis Soln w/ out KCl 5,010 ml @ 1,000 mls/hr Q5H1M IV Last administered on 07/17/19at 14:52; Start 07/12/19 at 11:30; Stop 07/17/19 at 19:59; Status DC Potassium Chloride 20 meq/ Bicarbonate Dialysis Soln w/ out KCl 5,010 ml @ 1,000 mls/hr Q5H1M IV Last administered on 07/17/19at 14:53; Start 07/12/19 at 11:30; Stop 07/17/19 at 19:59; Status DC Sodium Chloride 90 meq/Potassium Chloride 15 meq/ Potassium Phosphate 15 mmol/ Magnesium Sulfate 10 meq/Calcium Gluconate 15 meq/ Multivitamins 10 ml/Chromium/ Copper/Manganese/ Seleni/Zn 0.5 ml/ Total Parenteral Nutrition/Amino Acids/Dextrose/ Fat Emulsion Intravenous 1,400 ml @ 58.333 mls/ hr TPN CONT IV Last administered on 07/12/19at 22:17; Start 07/12/19 at 22:00; Stop 07/13/19 at 21:59; Status DC Cefepime HCl (Maxipime) 2 gm Q12HR IVP Last administered on 07/26/19at 20:56; Start 07/13/19 at 09:00; Stop 07/27/19 at 09:58; Status DC Daptomycin 500 mg/ Sodium Chloride 50 ml @ 100 mls/hr Q48H IV Last administered on 07/29/19at 09:57; Start 07/13/19 at 08:30; Stop 07/29/19 at 10:07; Status DC Lidocaine HCl (Buffered Lidocaine 1%) 3 ml 1X ONCE INJ Last administered on 07/13/19at 10:27; Start 07/13/19 at 10:30; Stop 07/13/19 at 10:31; Status DC Potassium Phosphate 20 mmol/ Sodium Chloride 106.6667 ml @ 51.667 m... 1X ONCE IV Last administered on 07/13/19at 12:51; Start 07/13/19 at 13:00; Stop 07/13/19 at 15:03; Status DC Sodium Chloride 90 meq/Potassium Chloride 15 meq/ Potassium Phosphate 18 mmol/ Magnesium Sulfate 8 meq/Calcium Gluconate 15 meq/ Multivitamins 10 ml/Chromium/ Copper/Manganese/ Seleni/Zn 0.5 ml/ Total Parenteral Nutrition/Amino Acids/Dextrose/ Fat Emulsion Intravenous 1,400 ml @ 58.333 mls/ hr TPN CONT IV Last administered on 07/13/19at 22:16; Start 07/13/19 at 22:00; Stop 07/14/19 at 21:59; Status DC Potassium Chloride 20 meq/ Bicarbonate Dialysis Soln w/ out KCl 5,010 ml @ 1,000 mls/hr Q5H1M IV Last administered on 07/17/19at 14:54; Start 07/13/19 at 16:00; Stop 07/17/19 at 19:59; Status DC Multi-Ingred Cream/Lotion/Oil/ Oint (Artificial Tears Eye Ointment) 1 ramu PRN Q1HR PRN OU DRY EYE, 2nd choice Last administered on 08/01/19at 08:19; Start 07/13/19 at 17:30; Stop 09/21/19 at 14:39; Status DC Sodium Chloride 90 meq/Potassium Chloride 15 meq/ Potassium Phosphate 18 mmol/ Magnesium Sulfate 8 meq/Calcium Gluconate 15 meq/ Multivitamins 10 ml/Chromium/ Copper/Manganese/ Seleni/Zn 0.5 ml/ Total Parenteral Nutrition/Amino Acids/Dextrose/ Fat Emulsion Intravenous 1,400 ml @ 58.333 mls/ hr TPN CONT IV Last administered on 07/14/19at 22:00; Start 07/14/19 at 22:00; Stop 07/15/19 at 21:59; Status DC Albumin Human 500 ml @ 125 mls/hr 1X ONCE IV ; Start 07/14/19 at 14:15; Stop 07/14/19 at 18:14; Status DC Sodium Chloride 90 meq/Potassium Chloride 15 meq/ Potassium Phosphate 18 mmol/ Magnesium Sulfate 8 meq/Calcium Gluconate 15 meq/ Multivitamins 10 ml/Chromium/ Copper/Manganese/ Seleni/Zn 0.5 ml/ Insulin Human Regular 10 unit/ Total Parenteral Nutrition/Amino Acids/Dextrose/ Fat Emulsion Intravenous 1,400 ml @ 58.333 mls/ hr TPN CONT IV Last administered on 07/15/19at 21:43; Start 07/15/19 at 22:00; Stop 07/16/19 at 21:59; Status DC Lidocaine HCl (Buffered Lidocaine 1%) 3 ml STK-MED ONCE .ROUTE ; Start 07/13/19 at 10:00; Stop 07/15/19 at 13:57; Status DC Midazolam HCl 100 mg/Sodium Chloride 100 ml @ 7 mls/hr CONT PRN IV SEE PROTOCOL Last administered on 07/27/19at 15:35; Start 07/16/19 at 16:00; Stop 09/21/19 at 14:38; Status DC Sodium Chloride 90 meq/Potassium Chloride 15 meq/ Potassium Phosphate 18 mmol/ Magnesium Sulfate 8 meq/Calcium Gluconate 15 meq/ Multivitamins 10 ml/Chromium/ Copper/Manganese/ Seleni/Zn 0.5 ml/ Insulin Human Regular 15 unit/ Total Parenteral Nutrition/Amino Acids/Dextrose/ Fat Emulsion Intravenous 1,400 ml @ 58.333 mls/ hr TPN CONT IV Last administered on 07/16/19at 20:34; Start 07/16/19 at 22:00; Stop 07/17/19 at 21:59; Status DC Info ([facility] Electrolyte Protocol) 1 ea CONT PRN PRN MC PER PROTOCOL; Start 07/17/19 at 13:15 Sodium Chloride 90 meq/Potassium Chloride 15 meq/ Potassium Phosphate 18 mmol/ Magnesium Sulfate 8 meq/Calcium Gluconate 15 meq/ Multivitamins 10 ml/Chromium/ Copper/Manganese/ Seleni/Zn 0.5 ml/ Insulin Human Regular 15 unit/ Total Parenteral Nutrition/Amino Acids/Dextrose/ Fat Emulsion Intravenous 1,400 ml @ 58.333 mls/ hr TPN CONT IV Last administered on 07/17/19at 22:05; Start 07/17/19 at 22:00; Stop 07/18/19 at 21:59; Status DC Potassium Chloride 15 meq/ Bicarbonate Dialysis Soln w/ out KCl 5,007.5 ml @ 1,000 mls/ hr Q5H1M IV Last administered on 07/20/19at 18:14; Start 07/17/19 at 20:00; Stop 07/21/19 at 13:08; Status DC Potassium Chloride 15 meq/ Bicarbonate Dialysis Soln w/ out KCl 5,007.5 ml @ 1,000 mls/ hr Q5H1M IV Last administered on 07/20/19at 18:14; Start 07/17/19 at 20:00; Stop 07/21/19 at 13:08; Status DC Potassium Chloride 15 meq/ Bicarbonate Dialysis Soln w/ out KCl 5,007.5 ml @ 1,000 mls/ hr Q5H1M IV Last administered on 07/20/19at 18:14; Start 07/17/19 at 20:00; Stop 07/21/19 at 13:08; Status DC Iohexol (Omnipaque 240 Mg/ml) 30 ml 1X ONCE PO Last administered on 07/18/19at 11:30; Start 07/18/19 at 11:30; Stop 07/18/19 at 11:33; Status DC Info (CONTRAST GIVEN -- Rx MONITORING) 1 each PRN DAILY PRN MC SEE COMMENTS; Start 07/18/19 at 11:45; Stop 07/20/19 at 11:44; Status DC Sodium Chloride 90 meq/Potassium Chloride 15 meq/ Potassium Phosphate 18 mmol/ Magnesium Sulfate 8 meq/Calcium Gluconate 15 meq/ Multivitamins 10 ml/Chromium/ Copper/Manganese/ Seleni/Zn 0.5 ml/ Insulin Human Regular 15 unit/ Total Parenteral Nutrition/Amino Acids/Dextrose/ Fat Emulsion Intravenous 1,400 ml @ 58.333 mls/ hr TPN CONT IV Last administered on 07/18/19at 21:47; Start 07/18/19 at 22:00; Stop 07/19/19 at 21:59; Status DC Sodium Chloride 90 meq/Potassium Chloride 15 meq/ Potassium Phosphate 18 mmol/ Magnesium Sulfate 8 meq/Calcium Gluconate 15 meq/ Multivitamins 10 ml/Chromium/ Copper/Manganese/ Seleni/Zn 0.5 ml/ Insulin Human Regular 20 unit/ Total Parenteral Nutrition/Amino Acids/Dextrose/ Fat Emulsion Intravenous 1,400 ml @ 58.333 mls/ hr TPN CONT IV Last administered on 07/19/19at 21:36; Start 0 at 22:00; Stop 07/20/19 at 21:59; Status DC Alteplase, Recombinant (Cathflo For Central Catheter Clearance) 1 mg 1X ONCE INT CAT Last administered on 07/19/19at 20:03; Start 07/19/19 at 19:30; Stop 07/19/19 at 19:46; Status DC Alteplase, Recombinant (Cathflo For Central Catheter Clearance) 1 mg 1X ONCE INT CAT Last administered on 07/19/19at 22:05; Start 07/19/19 at 22:00; Stop 07/19/19 at 22:01; Status DC Sodium Chloride 90 meq/Potassium Chloride 15 meq/ Potassium Phosphate 18 mmol/ Magnesium Sulfate 8 meq/Calcium Gluconate 15 meq/ Multivitamins 10 ml/Chromium/ Copper/Manganese/ Seleni/Zn 0.5 ml/ Insulin Human Regular 20 unit/ Total Parenteral Nutrition/Amino Acids/Dextrose/ Fat Emulsion Intravenous 1,400 ml @ 58.333 mls/ hr TPN CONT IV Last administered on 07/20/19at 21:30; Start 07/20/19 at 22:00; Stop 07/21/19 at 21:59; Status DC Dexmedetomidine HCl 400 mcg/ Sodium Chloride 100 ml @ 0 mls/hr CONT PRN IV ANXIETY / AGITATION Last administered on 09/17/19at 12:57; Start 07/21/19 at 08:15; Stop 09/17/19 at 18:31; Status DC Sodium Chloride 500 ml @ 500 mls/hr 1X PRN PRN IV ELEVATED BP, SEE COMMENTS; Start 07/21/19 at 08:15 Atropine Sulfate (ATROPINE 0.5mg SYRINGE) 0.5 mg PRN Q5MIN PRN IV SEE COMMENTS; Start 07/21/19 at 08:15 Furosemide (Lasix) 20 mg 1X ONCE IVP Last administered on 07/21/19at 08:19; Start 07/21/19 at 08:15; Stop 07/21/19 at 08:16; Status DC Lidocaine HCl (Buffered Lidocaine 1%) 3 ml STK-MED ONCE .ROUTE ; Start 07/21/19 at 08:39; Stop 07/21/19 at 08:39; Status DC Lidocaine HCl (Buffered Lidocaine 1%) 6 ml 1X ONCE INJ Last administered on 07/21/19at 09:05; Start 07/21/19 at 09:00; Stop 07/21/19 at 09:06; Status DC Sodium Chloride 90 meq/Potassium Chloride 15 meq/ Potassium Phosphate 18 mmol/ Magnesium Sulfate 8 meq/Calcium Gluconate 15 meq/ Multivitamins 10 ml/Chromium/ Copper/Manganese/ Seleni/Zn 0.5 ml/ Insulin Human Regular 20 unit/ Total Parenteral Nutrition/Amino Acids/Dextrose/ Fat Emulsion Intravenous 1,400 ml @ 58.333 mls/ hr TPN CONT IV Last administered on 07/21/19at 22:45; Start 07/21/19 at 22:00; Stop 07/22/19 at 21:59; Status DC Sodium Chloride 1,000 ml @ 1,000 mls/hr Q1H PRN IV hypotension; Start 07/22/19 a t 07:30; Stop 07/22/19 at 13:29; Status DC Albumin Human 200 ml @ 200 mls/hr 1X PRN PRN IV Hypotension Last administered on 07/22/19at 09:36; Start 07/22/19 at 07:30; Stop 07/22/19 at 13:29; Status DC Sodium Chloride (Normal Saline Flush) 10 ml 1X PRN PRN IV AP catheter pack; Start 07/22/19 at 07:30; Stop 07/22/19 at 21:29; Status DC Sodium Chloride (Normal Saline Flush) 10 ml 1X PRN PRN IV VOCATIONAL ADVISER catheter pack; Start 07/22/19 at 07:30; Stop 07/23/19 at 07:29; Status DC Sodium Chloride 1,000 ml @ 400 mls/hr Q2H30M PRN IV PATENCY; Start 07/22/19 at 07:30; Stop 07/22/19 at 19:29; Status DC Info (PHARMACY MONITORING -- do not chart) 1 each PRN DAILY PRN MC SEE COMMENTS; Start 07/22/19 at 07:30; Stop 07/22/19 at 13:02; Status DC Info (PHARMACY MONITORING -- do not chart) 1 each PRN DAILY PRN MC SEE COMMENTS; Start 07/22/19 at 07:30; Stop 07/24/19 at 12:45; Status DC Sodium Chloride 90 meq/Potassium Chloride 15 meq/ Potassium Phosphate 10 mmol/ Magnesium Sulfate 8 meq/Calcium Gluconate 15 meq/ Multivitamins 10 ml/Chromium/ Copper/Manganese/ Seleni/Zn 0.5 ml/ Insulin Human Regular 25 unit/ Total Parenteral Nutrition/Amino Acids/Dextrose/ Fat Emulsion Intravenous 1,400 ml @ 58.333 mls/ hr TPN CONT IV Last administered on 07/22/19at 22:19; Start 07/22/19 at 22:00; Stop 07/23/19 at 21:59; Status DC Heparin Sodium (Porcine) (Heparin Sodium) 5,000 unit Q12HR SQ Last administered on 08/14/19at 08:59; Start 07/22/19 at 21:00; Stop 08/14/19 at 10:05; Status DC Ondansetron HCl (Zofran) 4 mg PRN Q6HRS PRN IV NAUSEA/VOMITING; Start 07/25/19 at 07:00; Stop 07/26/19 at 06:59; Status DC Fentanyl Citrate (Fentanyl 2ml Vial) 25 mcg PRN Q5MIN PRN IV MILD PAIN 1-3; Start 07/25/19 at 07:00; Stop 07/26/19 at 06:59; Status DC Fentanyl Citrate (Fentanyl 2ml Vial) 50 mcg PRN Q5MIN PRN IV MODERATE TO SEVERE PAIN; Start 07/25/19 at 07:00; Stop 07/26/19 at 06:59; Status DC Ringer's Solution 1,000 ml @ 30 mls/hr Q24H IV ; Start 07/25/19 at 07:00; Stop 07/25/19 at 18:59; Status DC Lidocaine HCl (Xylocaine-Mpf 1% 2ml Vial) 2 ml PRN 1X PRN ID PRIOR TO IV START; Start 07/25/19 at 07:00; Stop 07/26/19 at 06:59; Status DC Prochlorperazine Edisylate (Compazine) 5 mg PACU PRN PRN IV NAUSEA, MRX1; Start 07/25/19 at 07:00; Stop 07/26/19 at 06:59; Status DC Sodium Chloride 1,000 ml @ 1,000 mls/hr Q1H PRN IV hypotension; Start 07/23/19 at 09:10; Stop 07/23/19 at 15:09; Status DC Albumin Human 200 ml @ 200 mls/hr 1X PRN PRN IV Hypotension Last administered on 07/23/19at 10:10; Start 07/23/19 at 09:15; Stop 07/23/19 at 15:14; Status DC Sodium Chloride 1,000 ml @ 400 mls/hr Q2H30M PRN IV PATENCY; Start 07/23/19 at 09:10; Stop 07/23/19 at 21:09; Status DC Info (PHARMACY MONITORING -- do not chart) 1 each PRN DAILY PRN MC SEE COMMENTS; Start 07/23/19 at 09:15; Stop 07/24/19 at 12:45; Status DC Info (PHARMACY MONITORING -- do not chart) 1 each PRN DAILY PRN MC SEE COMMENTS; Start 07/23/19 at 09:15; Stop 07/24/19 at 12:45; Status DC Sodium Chloride 90 meq/Potassium Chloride 15 meq/ Potassium Phosphate 10 mmol/ Magnesium Sulfate 8 meq/Calcium Gluconate 15 meq/ Multivitamins 10 ml/Chromium/ Copper/Manganese/ Seleni/Zn 0.5 ml/ Insulin Human Regular 25 unit/ Total Parenteral Nutrition/Amino Acids/Dextrose/ Fat Emulsion Intravenous 1,400 ml @ 58.333 mls/ hr TPN CONT IV Last administered on 07/23/19at 22:10; Start 07/23/19 at 22:00; Stop 07/24/19 at 21:59; Status DC Magnesium Sulfate 50 ml @ 25 mls/hr PRN DAILY PRN IV for Mag < 1.7 on am labs Last administered on 10/06/19at 10:57; Start 07/24/19 at 09:15 Sodium Chloride 90 meq/Potassium Chloride 15 meq/ Potassium Phosphate 10 mmol/ Magnesium Sulfate 8 meq/Calcium Gluconate 15 meq/ Multivitamins 10 ml/Chromium/ Copper/Manganese/ Seleni/Zn 0.5 ml/ Insulin Human Regular 25 unit/ Total Parenteral Nutrition/Amino Acids/Dextrose/ Fat Emulsion Intravenous 1,400 ml @ 58.333 mls/ hr TPN CONT IV Last administered on 07/24/19at 21:20; Start 07/24/19 at 22:00; Stop 07/25/19 at 21:59; Status DC Sodium Chloride 1,000 ml @ 1,000 mls/hr Q1H PRN IV hypotension; Start 07/24/19 at 12:23; Stop 07/24/19 at 18:22; Status DC Albumin Human 200 ml @ 200 mls/hr 1X ONCE IV Last administered on 07/24/19at 13:34; Start 07/24/19 at 12:30; Stop 07/24/19 at 13:29; Status DC Diphenhydramine HCl (Benadryl) 25 mg 1X PRN PRN IV ITCHING; Start 07/24/19 at 12:30; Stop 07/25/19 at 12:29; Status DC Diphenhydramine HCl (Benadryl) 25 mg 1X PRN PRN IV ITCHING; Start 07/24/19 at 12:30; Stop 07/25/19 at 12:29; Status DC Info (PHARMACY MONITORING -- do not chart) 1 each PRN DAILY PRN MC SEE COMMENTS; Start 07/24/19 at 12:30; Status Cancel Bupivacaine HCl/ Epinephrine Bitart (Sensorcain-Epi 0.5%-1:[id number] Mpf) 30 ml STK-MED ONCE .ROUTE Last administered on 07/25/19at 11:44; Start 07/25/19 at 11:00; Stop 07/25/19 at 11:01; Status DC Cellulose (Surgicel Fibrillar 1x2) 1 each STK-MED ONCE .ROUTE ; Start 07/25/19 at 11:00; Stop 07/25/19 at 11:01; Status DC Sodium Chloride 90 meq/Potassium Chloride 15 meq/ Potassium Phosphate 10 mmol/ Magnesium Sulfate 12 meq/Calcium Gluconate 15 meq/ Multivitamins 10 ml/Chromium/ Copper/Manganese/ Seleni/Zn 0.5 ml/ Insulin Human Regular 25 unit/ Total Parent eral Nutrition/Amino Acids/Dextrose/ Fat Emulsion Intravenous 1,400 ml @ 58.333 mls/ hr TPN CONT IV Last administered on 07/25/19at 22:24; Start 07/25/19 at 22:00; Stop 07/26/19 at 21:59; Status DC Propofol 20 ml @ As Directed STK-MED ONCE IV ; Start 07/25/19 at 11:07; Stop 07/25/19 at 11:07; Status DC Cellulose (Surgicel Hemostat 4x8) 1 each STK-MED ONCE .ROUTE Last administered on 07/25/19at 11:44; Start 07/25/19 at 11:55; Stop 07/25/19 at 11:56; Status DC Sevoflurane (Ultane) 60 ml STK-MED ONCE IH ; Start 07/25/19 at 12:46; Stop 07/25/19 at 12:46; Status DC Sodium Chloride 1,000 ml @ 1,000 mls/hr Q1H PRN IV hypotension; Start 07/25/19 at 13:51; Stop 07/25/19 at 19:50; Status DC Albumin Human 200 ml @ 200 mls/hr 1X PRN PRN IV Hypotension Last administered on 07/25/19at 14:51; Start 07/25/19 at 14:00; Stop 07/25/19 at 19:59; Status DC Diphenhydramine HCl (Benadryl) 25 mg 1X PRN PRN IV ITCHING; Start 07/25/19 at 14:00; Stop 07/26/19 at 13:59; Status DC Diphenhydramine HCl (Benadryl) 25 mg 1X PRN PRN IV ITCHING; Start 07/25/19 at 14:00; Stop 07/26/19 at 13:59; Status DC Sodium Chloride 1,000 ml @ 400 mls/hr Q2H30M PRN IV PATENCY; Start 07/25/19 at 13:51; Stop 07/26/19 at 01:50; Status DC Info (PHARMACY MONITORING -- do not chart) 1 each PRN DAILY PRN MC SEE COMMENT S; Start 07/25/19 at 14:00; Stop 07/28/19 at 08:16; Status DC Heparin Sodium (Porcine) (Hep Lock Adult) 500 unit STK-MED ONCE IVP ; Start 07/26/19 at 09:29; Stop 07/26/19 at 09:30; Status DC Sodium Chloride 1,000 ml @ 1,000 mls/hr Q1H PRN IV hypotension; Start 07/26/19 at 10:43; Stop 07/26/19 at 16:42; Status DC Sodium Chloride 1,000 ml @ 400 mls/hr Q2H30M PRN IV PATENCY; Start 07/26/19 at 10:43; Stop 07/26/19 at 22:42; Status DC Info (PHARMACY MONITORING -- do not chart) 1 each PRN DAILY PRN MC SEE COMMENTS ; Start 07/26/19 at 10:45; Status UNV Info (PHARMACY MONITORING -- do not chart) 1 each PRN DAILY PRN MC SEE COMMENTS; Start 07/26/19 at 10:45; Status UNV Sodium Chloride 90 meq/Potassium Chloride 15 meq/ Magnesium Sulfate 12 meq/Calcium Gluconate 15 meq/ Multivitamins 10 ml/Chromium/ Copper/Manganese/ Seleni/Zn 0.5 ml/ Insulin Human Regular 25 unit/ Total Parenteral Nutrition/Ami no Acids/Dextrose/ Fat Emulsion Intravenous 1,400 ml @ 58.333 mls/ hr TPN CONT IV Last administered on 07/26/19at 22:13; Start 07/26/19 at 22:00; Stop 07/27/19 at 21:59; Status DC Sodium Chloride 1,000 ml @ 1,000 mls/hr Q1H PRN IV hypotension; Start 07/27/19 at 07:50; Stop 07/27/19 at 13:49; Status DC Albumin Human 200 ml @ 200 mls/hr 1X ONCE IV ; Start 07/27/19 at 08:00; Stop 07/27/19 at 08:53; Status DC Diphenhydramine HCl (Benadryl) 25 mg 1X PRN PRN IV ITCHING; Start 07/27/19 at 08:00; Stop 07/28/19 at 07:59; Status DC Diphenhydramine HCl (Benadryl) 25 mg 1X PRN PRN IV ITCHING; Start 07/27/19 at 08:00; Stop 07/28/19 at 07:59; Status DC Info (PHARMACY MONITORING -- do not chart) 1 each PRN DAILY PRN MC SEE COMMENTS; Start 07/27/19 at 08:00; Stop 07/28/19 at 08:16; Status DC Albumin Human 50 ml @ 50 mls/hr 1X ONCE IV ; Start 07/27/19 at 08:53; Stop 07/27/19 at 08:56; Status DC Albumin Human 200 ml @ 50 mls/hr PRN 1X PRN IV HYPOTENSION Last administered on 08/02/19at 11:54; Start 07/27/19 at 09:00; Stop 09/08/19 at 11:14; Status DC Meropenem 500 mg/ Sodium Chloride 50 ml @ 100 mls/hr Q12H IV Last administered on 08/16/19at 10:45; Start 07/27/19 at 10:00; Stop 08/16/19 at 12:37; Status DC Sodium Chloride 90 meq/Magnesium Sulfate 12 meq/ Calcium Gluconate 15 meq/ Multivitamins 10 ml/Chromium/ Copper/Manganese/ Seleni/Zn 0.5 ml/ Insulin Human Regular 25 unit/ Total Parenteral Nutrition/Amino Acids/Dextrose/ Fat Emulsion Intravenous 1,400 ml @ 58.333 mls/ hr TPN CONT IV Last administered on 07/27/19at 21:41; Start 07/27/19 at 22:00; Stop 07/28/19 at 21:59; Status DC Sodium Chloride 1,000 ml @ 1,000 mls/hr Q1H PRN IV hypotension; Start 07/28/19 at 07:58; Stop 07/28/19 at 13:57; Status DC Albumin Human 200 ml @ 200 mls/hr 1X PRN PRN IV Hypotension Last administered on 07/28/19at 09:30; Start 07/28/19 at 08:00; Stop 07/28/19 at 13:59; Status DC Sodium Chloride 1,000 ml @ 400 mls/hr Q2H30M PRN IV PATENCY; Start 07/28/19 at 07:58; Stop 07/28/19 at 19:57; Status DC Info (PHARMACY MONITORING -- do not chart) 1 each PRN DAILY PRN MC SEE COMMENTS; Start 07/28/19 at 08:00; Status Cancel Info (PHARMACY MONITORING -- do not chart) 1 each PRN DAILY PRN MC SEE COMMENTS; Start 07/28/19 at 08:15; Status UNV Sodium Chloride 90 meq/Potassium Phosphate 5 mmol/ Magnesium Sulfate 12 m eq/Calcium Gluconate 15 meq/ Multivitamins 10 ml/Chromium/ Copper/Manganese/ Seleni/Zn 0.5 ml/ Insulin Human Regular 30 unit/ Total Parenteral Nutrition/Amino Acids/Dextrose/ Fat Emulsion Intravenous 1,400 ml @ 58.333 mls/ hr TPN CONT IV Last administered on 07/28/19at 22:08; Start 07/28/19 at 22:00; Stop 07/29/19 at 21:59; Status DC Linezolid/Dextrose 300 ml @ 300 mls/hr Q12HR IV Last administered on 08/08/19at 20:40; Start 07/29/19 at 11:00; Stop 08/09/19 at 08:10; Status DC Sodium Chloride 90 meq/Potassium Phosphate 15 mmol/ Magnesium Sulfate 12 meq/Calcium Gluconate 15 meq/ Multivitamins 10 ml/Chromium/ Copper/Manganese/ Seleni/Zn 0.5 ml/ Insulin Human Regular 30 unit/ Total Parenteral Nutrition/Amino Acids/Dextrose/ Fat Emulsion Intravenous 1,400 ml @ 58.333 mls/ hr TPN CONT IV Last administered on 07/29/19at 21:49; Start 07/29/19 at 22:00; Stop 07/30/19 at 21:59; Status DC Sodium Chloride 90 meq/Potassium Phosphate 15 mmol/ Magnesium Sulfate 12 meq/Calcium Gluconate 15 meq/ Multivitamins 10 ml/Chromium/ Copper/Manganese/ Seleni/Zn 0.5 ml/ Insulin Human Regular 40 unit/ Total Parenteral Nutrition/Amino Acids/Dextrose/ Fat Emulsion Intravenous 1,400 ml @ 58.333 mls/ hr TPN CONT IV Last administered on 07/30/19at 21:21; Start 07/30/19 at 22:00; Stop 07/31/19 at 21:59; Status DC Sodium Chloride 1,000 ml @ 1,000 mls/hr Q1H PRN IV hypotension; Start 07/30/19 at 13:26; Stop 07/30/19 at 19:25; Status DC Albumin Human 200 ml @ 200 mls/hr 1X PRN PRN IV Hypotension Last administered on 07/30/19at 15:00; Start 07/30/19 at 13:30; Stop 07/30/19 at 19:29; Status DC Sodium Chloride (Normal Saline Flush) 10 ml 1X PRN PRN IV AP catheter pack; Start 07/30/19 at 13:30; Stop 07/31/19 at 13:29; Status DC Sodium Chloride (Normal Saline Flush) 10 ml 1X PRN PRN IV VOCATIONAL ADVISER catheter pack; Start 07/30/19 at 13:30; Stop 07/31/19 at 13:29; Status DC Sodium Chloride 1,000 ml @ 400 mls/hr Q2H30M PRN IV PATENCY; Start 07/30/19 at 13:26; Stop 07/31/19 at 01:25; Status DC Info (PHARMACY MONITORING -- do not chart) 1 each PRN DAILY PRN MC SEE COMMENTS; Start 07/30/19 at 13:30; Stop 07/30/19 at 13:33; Status DC Info (PHARMACY MONITORING -- do not chart) 1 each PRN DAILY PRN MC SEE COMMENTS; Start 07/30/19 at 13:30; Stop 07/30/19 at 13:34; Status DC Sodium Chloride 90 meq/Potassium Phosphate 19 mmol/ Magnesium Sulfate 12 meq/Calcium Gluconate 15 meq/ Multivitamins 10 ml/Chromium/ Copper/Manganese/ Seleni/Zn 0.5 ml/ Insulin Human Regular 40 unit/ Total Parenteral Nutrition/Amino Acids/Dextrose/ Fat Emulsion Intravenous 1,400 ml @ 58.333 mls/ hr TPN CONT IV Last administered on 07/31/19at 21:54; Start 07/31/19 at 22:00; Stop 08/01/19 at 21:59; Status DC Sodium Chloride 1,000 ml @ 1,000 mls/hr Q1H PRN IV hypotension; Start 08/01/19 at 09:35; Stop 08/01/19 at 15:34; Status DC Albumin Human 200 ml @ 200 mls/hr 1X PRN PRN IV Hypotension; Start 08/01/19 at 09:45; Stop 08/01/19 at 15:44; Status DC Diphenhydramine HCl (Benadryl) 25 mg 1X PRN PRN IV ITCHING; Start 08/01/19 at 09:45; Stop 08/02/19 at 09:44; Status DC Diphenhydramine HCl (Benadryl) 25 mg 1X PRN PRN IV ITCHING; Start 08/01/19 at 09:45; Stop 08/02/19 at 09:44; Status DC Sodium Chloride 1,000 ml @ 400 mls/hr Q2H30M PRN IV PATENCY; Start 08/01/19 at 09:35; Stop 08/01/19 at 21:34; Status DC Info (PHARMACY MONITORING -- do not chart) 1 each PRN DAILY PRN MC SEE COMMENTS; Start 08/01/19 at 09:45; Status Cancel Sodium Chloride 100 meq/Potassium Phosphate 19 mmol/ Magnesium Sulfate 12 meq/Calcium Gluconate 15 meq/ Multivitamins 10 ml/Chromium/ Copper/Manganese/ Seleni/Zn 0.5 ml/ Insulin Human Regular 40 unit/ Potassium Chloride 20 meq/ Total Parenteral Nutrition/Amino Acids/Dextrose/ Fat Emulsion Intravenous 1,400 ml @ 58.333 mls/ hr TPN CONT IV Last administered on 08/01/19at 22:02; Start 08/01/19 at 22:00; Stop 08/02/19 at 21:59; Status DC Furosemide (Lasix) 40 mg 1X ONCE IVP Last administered on 08/01/19at 14:39; Start 08/01/19 at 14:30; Stop 08/01/19 at 14:31; Status DC Metronidazole 100 ml @ 100 mls/hr Q8HRS IV Last administered on 08/09/19at 06:04; Start 08/02/19 at 10:00; Stop 08/09/19 at 08:10; Status DC Sodium Chloride 1,000 ml @ 1,000 mls/hr Q1H PRN IV hypotension; Start 08/02/19 at 08:00; Stop 08/02/19 at 13:59; Status DC Albumin Human 200 ml @ 200 mls/hr 1X PRN PRN IV Hypotension; Start 08/02/19 at 08:00; Stop 08/02/19 at 13:59; Status DC Sodium Chloride 1,000 ml @ 400 mls/hr Q2H30M PRN IV PATENCY; Start 08/02/19 at 08:00; Stop 08/02/19 at 19:59; Status DC Info (PHARMACY MONITORING -- do not chart) 1 each PRN DAILY PRN MC SEE COMMENTS; Start 08/02/19 at 11:30; Status UNV Info (PHARMACY MONITORING -- do not chart) 1 each PRN DAILY PRN MC SEE COMMENTS; Start 08/02/19 at 11:30; Stop 08/04/19 at 12:13; Status DC Sodium Chloride 100 meq/Potassium Phosphate 19 mmol/ Magnesium Sulfate 12 meq/Calcium Gluconate 15 meq/ Multivitamins 10 ml/Chromium/ Copper/Manganese/ Seleni/Zn 0.5 ml/ Insulin Human Regular 40 unit/ Potassium Chloride 20 meq/ Total Parenteral Nutrition/Amino Acids/Dextrose/ Fat Emulsion Intravenous 1,400 ml @ 58.333 mls/ hr TPN CONT IV Last administered on 08/02/19at 21:52; Start 08/02/19 at 22:00; Stop 08/03/19 at 21:59; Status DC Sodium Chloride (Normal Saline Flush) 10 ml QSHIFT PRN IV AFTER MEDS AND BLOOD DRAWS; Start 08/02/19 at 15:00; Stop 08/30/19 at 11:27; Status DC Sodium Chloride (Normal Saline Flush) 10 ml PRN Q5MIN PRN IV AFTER MEDS AND BLOOD DRAWS; Start 08/02/19 at 15:00 Sodium Chloride (Normal Saline Flush) 20 ml PRN Q5MIN PRN IV AFTER MEDS AND BLOOD DRAWS; Start 08/02/19 at 15:00 Sodium Chloride 100 meq/Potassium Phosphate 19 mmol/ Magnesium Sulfate 12 meq/Calcium Gluconate 15 meq/ Multivitamins 10 ml/Chromium/ Copper/Manganese/ Seleni/Zn 0.5 ml/ Insulin Human Regular 40 unit/ Potassium Chloride 20 meq/ Total Parenteral Nutrition/Amino Acids/Dextrose/ Fat Emulsion Intravenous 1,400 ml @ 58.333 mls/ hr TPN CONT IV Last administered on 08/03/19at 21:20; Start 08/03/19 at 22:00; Stop 08/04/19 at 21:59; Status DC Lidocaine HCl (Buffered Lidocaine 1%) 3 ml STK-MED ONCE .ROUTE ; Start 08/03/19 at 13:16; Stop 08/03/19 at 13:16; Status DC Lidocaine HCl (Buffered Lidocaine 1%) 6 ml 1X ONCE INJ Last administered on 08/03/19at 13:45; Start 08/03/19 at 13:30; Stop 08/03/19 at 13:31; Status DC Albumin Human 100 ml @ 100 mls/hr 1X ONCE IV Last administered on 08/03/19at 15:41; Start 08/03/19 at 15:00; Stop 08/03/19 at 15:59; Status DC Albumin Human 50 ml @ 50 mls/hr 1X ONCE IV Last administered on 08/03/19at 15:00; Start 08/03/19 at 15:00; Stop 08/03/19 at 15:59; Status DC Info (PHARMACY MONITORING -- do not chart) 1 each PRN DAILY PRN MC SEE COMMENTS; Start 08/04/19 at 11:30; Status Cancel Info (PHARMACY MONITORING -- do not chart) 1 each PRN DAILY PRN MC SEE COMMENTS; Start 08/04/19 at 11:30; Status UNV Sodium Chloride 100 meq/Potassium Phosphate 10 mmol/ Magnesium Sulfate 12 meq/Calcium Gluconate 15 meq/ Multivitamins 10 ml/Chromium/ Copper/Manganese/ Seleni/Zn 0.5 ml/ Insulin Human Regular 35 unit/ Potassium Chloride 20 meq/ Total Parenteral Nutrition/Amino Acids/Dextrose/ Fat Emulsion Intravenous 1,400 ml @ 58.333 mls/ hr TPN CONT IV Last administered on 08/04/19at 22:10; Start 08/04/19 at 22:00; Stop 08/05/19 at 21:59; Status DC Sodium Chloride 100 meq/Potassium Phosphate 5 mmol/ Magnesium Sulfate 12 meq/Calcium Gluconate 15 meq/ Multivitamins 10 ml/Chromium/ Copper/Manganese/ Seleni/Zn 0.5 ml/ Insulin Human Regular 35 unit/ Potassium Chloride 20 meq/ Total Parenteral Nutrition/Amino Acids/Dextrose/ Fat Emulsion Intravenous 1,400 ml @ 58.333 mls/ hr TPN CONT IV Last administered on 08/05/19at 22:59; Start 08/05/19 at 22:00; Stop 08/06/19 at 21:59; Status DC Sodium Chloride 1,000 ml @ 1,000 mls/hr Q1H PRN IV hypotension; Start 08/06/19 at 08:27; Stop 08/06/19 at 14:26; Status DC Albumin Human 200 ml @ 200 mls/hr 1X PRN PRN IV Hypotension Last administered on 08/06/19at 09:18; Start 08/06/19 at 08:30; Stop 08/06/19 at 14:29; Status DC Sodium Chloride 1,000 ml @ 400 mls/hr Q2H30M PRN IV PATENCY; Start 08/06/19 at 08:27; Stop 08/06/19 at 20:26; Status DC Info (PHARMACY MONITORING -- do not chart) 1 each PRN DAILY PRN MC SEE COMMENTS; Start 08/06/19 at 08:30; Status Cancel Info (PHARMACY MONITORING -- do not chart) 1 each PRN DAILY PRN MC SEE COMMENTS; Start 08/06/19 at 08:30; Stop 08/14/19 at 13:10; Status DC Sodium Chloride 100 meq/Potassium Chloride 40 meq/ Magnesium Sulfate 15 meq/Calcium Gluconate 15 meq/ Multivitamins 10 ml/Chromium/ Copper/Manganese/ Seleni/Zn 0.5 ml/ Insulin Human Regular 35 unit/ Total Parenteral Nutrition/Amino Acids/Dextrose/ Fat Emulsion Intravenous 1,400 ml @ 58.333 mls/ hr TPN CONT IV Last administered on 08/06/19at 22:00; Start 08/06/19 at 22:00; Stop 08/07/19 at 21:59; Status DC Potassium Chloride/Water 100 ml @ 100 mls/hr 1X ONCE IV Last administered on 08/06/19at 17:28; Start 08/06/19 at 14:45; Stop 08/06/19 at 15:44; Status DC Sodium Chloride 100 meq/Potassium Chloride 40 meq/ Magnesium Sulfate 15 meq/Calcium Gluconate 15 meq/ Multivitamins 10 ml/Chromium/ Copper/Manganese/ Seleni/Zn 0.5 ml/ Insulin Human Regular 35 unit/ Total Parenteral Nutrition/Amino Acids/Dextrose/ Fat Emulsion Intravenous 1,400 ml @ 58.333 mls/ hr TPN CONT IV Last administered on 08/07/19at 22:46; Start 08/07/19 at 22:00; Stop 08/08/19 at 21:59; Status DC Sodium Chloride 100 meq/Potassium Chloride 40 meq/ Magnesium Sulfate 20 meq/Calcium Gluconate 15 meq/ Multivitamins 10 ml/Chromium/ Copper/Manganese/ Seleni/Zn 0.5 ml/ Insulin Human Regular 35 unit/ Total Parenteral Nutrition /Amino Acids/Dextrose/ Fat Emulsion Intravenous 1,400 ml @ 58.333 mls/ hr TPN CONT IV Last administered on 08/08/19at 22:31; Start 08/08/19 at 22:00; Stop 08/09/19 at 21:59; Status DC Fentanyl Citrate (Fentanyl 2ml Vial) 50 mcg PRN Q2HR PRN IVP PAIN Last administered on 08/15/19at 13:32; Start 08/08/19 at 21:00; Stop 08/16/19 at 12:53; Status DC Fentanyl Citrate (Fentanyl 2ml Vial) 25 mcg PRN Q2HR PRN IVP PAIN; Start 08/08/19 at 21:00; Stop 08/16/19 at 12:54; Status DC Enoxaparin Sodium (Lovenox 100mg Syringe) 100 mg Q12HR SQ ; Start 08/09/19 at 21:00; Status UNV Amino Acids/ Glycerin/ Electrolytes 1,000 ml @ 75 mls/hr [id number] IV ; Start 08/08/19 at 21:15; Status UNV Sodium Chloride 1,000 ml @ 1,000 mls/hr Q1H PRN IV hypotension; Start 08/09/19 at 07:56; Stop 08/09/19 at 13:55; Status DC Albumin Human 200 ml @ 200 mls/hr 1X PRN PRN IV Hypotension Last administered on 08/09/19at 08:40; Start 08/09/19 at 08:00; Stop 08/09/19 at 13:59; Status DC Sodium Chloride 1,000 ml @ 400 mls/hr Q2H30M PRN IV PATENCY; Start 08/09/19 at 07:56; Stop 08/09/19 at 19:55; Status DC Info (PHARMACY MONITORING -- do not chart) 1 each PRN DAILY PRN MC SEE COMMENTS; Start 08/09/19 at 08:00; Status UNV Info (PHARMACY MONITORING -- do not chart) 1 each PRN DAILY PRN MC SEE COMMENTS; Start 08/09/19 at 08:00; Status UNV Daptomycin 430 mg/ Sodium Chloride 50 ml @ 100 mls/hr Q24H IV Last administe red on 08/09/19at 12:35; Start 08/09/19 at 09:00; Stop 08/09/19 at 12:49; Status DC Sodium Chloride 100 meq/Potassium Chloride 40 meq/ Magnesium Sulfate 20 meq/Calcium Gluconate 15 meq/ Multivitamins 10 ml/Chromium/ Copper/Manganese/ Seleni/Zn 0.5 ml/ Insulin Human Regular 35 unit/ Total Parenteral Nutrition/Amino Acids/Dextrose/ Fat Emulsion Intravenous 1,400 ml @ 58.333 mls/ hr TPN CONT IV Last administered on 08/09/19at 21:26; Start 08/09/19 at 22:00; Stop 08/10/19 at 21:59; Status DC Daptomycin 430 mg/ Sodium Chloride 50 ml @ 100 mls/hr Q48H IV ; Start 08/11/19 at 09:00; Stop 08/10/19 at 11:55; Status DC Sodium Chloride 100 meq/Potassium Chloride 40 meq/ Magnesium Sulfate 20 meq/Calcium Gluconate 15 meq/ Multivitamins 10 ml/Chromium/ Copper/Manganese/ Seleni/Zn 0.5 ml/ Insulin Human Regular 35 unit/ Total Parenteral Nutrition/Amino Acids/Dextrose/ Fat Emulsion Intravenous 1,400 ml @ 58.333 mls/ hr TPN CONT IV Last administered on 08/10/19at 22:27; Start 08/10/19 at 22:00; Stop 08/11/19 at 21:59; Status DC Daptomycin 430 mg/ Sodium Chloride 50 ml @ 100 mls/hr Q24H IV Last administered on 08/12/19at 15:07; Start 08/10/19 at 13:00; Stop 08/13/19 at 13:15; Status DC Sodium Chloride 100 meq/Potassium Chloride 40 meq/ Magnesium Sulfate 20 meq/Calcium Gluconate 10 meq/ Multivitamins 10 ml/Chromium/ Copper/Manganese/ Seleni/Zn 0.5 ml/ Insulin Human Regular 35 unit/ Total Parenteral Nutrition/Amino Acids/Dextrose/ Fat Emulsion Intravenous 1,400 ml @ 58.333 mls/ hr TPN CONT IV Last administered on 08/12/19at 00:06; Start 08/11/19 at 22:00; Stop 08/12/19 at 21:59; Status DC Alteplase, Recombinant (Cathflo For Central Catheter Clearance) 1 mg 1X ONCE INT CAT Last administered on 08/12/19at 11:44; Start 08/12/19 at 10:45; Stop 08/12/19 at 10:46; Status DC Ondansetron HCl (Zofran) 4 mg PRN Q6HRS PRN IV NAUSEA/VOMITING; Start 08/15/19 at 07:00; Stop 08/16/19 at 06:59; Status DC Fentanyl Citrate (Fentanyl 2ml Vial) 25 mcg PRN Q5MIN PRN IV MILD PAIN 1-3; Start 08/15/19 at 07:00; Stop 08/16/19 at 06:59; Status DC Fentanyl Citrate (Fentanyl 2ml Vial) 50 mcg PRN Q5MIN PRN IV MODERATE TO SEVERE PAIN Last administered on 08/15/19at 10:17; Start 08/15/19 at 07:00; Stop 08/16/19 at 06:59; Status DC Ringer's Solution 1,000 ml @ 30 mls/hr Q24H IV ; Start 08/15/19 at 07:00; Stop 08/15/19 at 18:59; Status DC Lidocaine HCl (Xylocaine-Mpf 1% 2ml Vial) 2 ml PRN 1X PRN ID PRIOR TO IV START; Start 08/15/19 at 07:00; Stop 08/16/19 at 06:59; Status DC Prochlorperazine Edisylate (Compazine) 5 mg PACU PRN PRN IV NAUSEA, MRX1; Start 08/15/19 at 07:00; Stop 08/16/19 at 06:59; Status DC Sodium Acetate 50 meq/Potassium Acetate 55 meq/ Magnesium Sulfate 20 meq/Calcium Gluconate 10 meq/ Multivitamins 10 ml/Chromium/ Copper/Manganese/ Seleni/Zn 0.5 ml/ Insulin Human Regular 35 unit/ Total Parenteral Nutrition/Amino Acids/Dextrose/ Fat Emulsion Intravenous 1,400 ml @ 58.333 mls/ hr TPN CONT IV ; Start 08/12/19 at 22:00; Stop 08/12/19 at 14:15; Status DC Sodium Acetate 50 meq/Potassium Acetate 55 meq/ Magnesium Sulfate 20 meq/Calcium Gluconate 10 meq/ Multivitamins 10 ml/Chromium/ Copper/Manganese/ Seleni/Zn 0.5 ml/ Insulin Human Regular 35 unit/ Total Parenteral Nutrition/Amino Acids/Dextrose/ Fat Emulsion Intravenous 1,800 ml @ 75 mls/hr TPN CONT IV Last administered on 08/12/19at 22:38; Start 08/12/19 at 22:00; Stop 08/13/19 at 21:59; Status DC Sodium Chloride 1,000 ml @ 1,000 mls/hr Q1H PRN IV hypotension; Start 08/12/19 at 15:31; Stop 08/12/19 at 21:30; Status DC Diphenhydramine HCl (Benadryl) 25 mg 1X PRN PRN IV ITCHING; Start 08/12/19 at 15:45; Stop 08/13/19 at 15:44; Status DC Diphenhydramine HCl (Benadryl) 25 mg 1X PRN PRN IV ITCHING; Start 08/12/19 at 15:45; Stop 08/13/19 at 15:44; Status DC Sodium Chloride 1,000 ml @ 400 mls/hr Q2H30M PRN IV PATENCY; Start 08/12/19 at 15:31; Stop 08/13/19 at 03:30; Status DC Info (PHARMACY MONITORING -- do not chart) 1 each PRN DAILY PRN MC SEE COMMENT S; Start 08/12/19 at 15:45; Stop 09/13/19 at 14:14; Status DC Sodium Acetate 50 meq/Potassium Acetate 55 meq/ Magnesium Sulfate 20 meq/Calcium Gluconate 10 meq/ Multivitamins 10 ml/Chromium/ Copper/Manganese/ Seleni/Zn 0.5 ml/ Insulin Human Regular 35 unit/ Total Parenteral Nutrition/Amino Acids/Dextrose/ Fat Emulsion Intravenous 1,800 ml @ 75 mls/hr TPN CONT IV Last administered on 08/13/19at 22:03; Start 08/13/19 at 22:00; Stop 08/14/19 at 21:59; Status DC Daptomycin 430 mg/ Sodium Chloride 50 ml @ 100 mls/hr Q24H IV Last administered on 08/18/19at 13:00; Start 08/13/19 at 13:00; Stop 08/18/19 at 20:58; Status DC Heparin Sodium (Porcine) 1000 unit/Sodium Chloride 1,001 ml @ 1,001 mls/hr 1X ONCE IRR ; Start 08/15/19 at 06:00; Stop 08/15/19 at 06:59; Status DC Potassium Acetate 55 meq/Magnesium Sulfate 20 meq/ Calcium Gluconate 10 meq/ Multivitamins 10 ml/Chromium/ Copper/Manganese/ Seleni/Zn 0.5 ml/ Insulin Human Regular 35 unit/ Total Parenteral Nutrition/Amino Acids/Dextrose/ Fat Emulsion Intravenous 1,920 ml @ 80 mls/hr TPN CONT IV Last administered on 08/14/19at 22:10; Start 08/14/19 at 22:00; Stop 08/15/19 at 21:59; Status DC Dexamethasone Sodium Phosphate (Decadron) 4 mg STK-MED ONCE .ROUTE ; Start 08/15/19 at 10:56; Stop 08/15/19 at 10:57; Status DC Ondansetron HCl (Zofran) 4 mg STK-MED ONCE .ROUTE ; Start 08/15/19 at 10:56; Stop 08/15/19 at 10:57; Status DC Rocuronium [place] (Zemuron) 50 mg STK-MED ONCE .ROUTE ; Start 08/15/19 at 10:56; Stop 08/15/19 at 10:57; Status DC Fentanyl Citrate (Fentanyl 2ml Vial) 100 mcg STK-MED ONCE .ROUTE ; Start 08/15/19 at 10:56; Stop 08/15/19 at 10:57; Status DC Bupivacaine HCl/ Epinephrine Bitart (Sensorcain-Epi 0.5%-1:[id number] Mpf) 30 ml STK-MED ONCE .ROUTE Last administered on 08/15/19at 12:01; Start 08/15/19 at 10:58; Stop 08/15/19 at 10:58; Status DC Cellulose (Surgicel Hemostat 2x14) 1 each STK-MED ONCE .ROUTE ; Start 08/15/19 at 10:58; Stop 08/15/19 at 10:59; Status DC Iohexol (Omnipaque 300 Mg/ml) 50 ml STK-MED ONCE .ROUTE ; Start 08/15/19 at 10:58; Stop 08/15/19 at 10:59; Status DC Cellulose (Surgicel Hemostat 4x8) 1 each STK-MED ONCE .ROUTE ; Start 08/15/19 at 10:58; Stop 08/15/19 at 10:59; Status DC Bisacodyl (Dulcolax Supp) 10 mg STK-MED ONCE .ROUTE ; Start 08/15/19 at 10:59; Stop 08/15/19 at 10:59; Status DC Heparin Sodium (Porcine) 1000 unit/Sodium Chloride 1,001 ml @ 1,001 mls/hr 1X ONCE IRR ; Start 08/15/19 at 12:00; Stop 08/15/19 at 12:59; Status DC Propofol 20 ml @ As Directed STK-MED ONCE IV ; Start 08/15/19 at 11:05; Stop 08/15/19 at 11:05; Status DC Sevoflurane (Ultane) 90 ml STK-MED ONCE IH ; Start 08/15/19 at 11:05; Stop 08/15/19 at 11:05; Status DC Sevoflurane (Ultane) 60 ml STK-MED ONCE IH ; Start 08/15/19 at 12:26; Stop 08/15/19 at 12:27; Status DC Propofol 20 ml @ As Directed STK-MED ONCE IV ; Start 08/15/19 at 12:26; Stop 08/15/19 at 12:27; Status DC Phenylephrine HCl (PHENYLEPHRINE in 0.9% NACL PF) 1 mg STK-MED ONCE IV ; Start 08/15/19 at 12:34; Stop 08/15/19 at 12:34; Status DC Heparin Sodium (Porcine) (Heparin Sodium) 5,000 unit Q12HR SQ Last administered on 08/24/19at 20:57; Start 08/15/19 at 21:00; Stop 08/25/19 at 09:59; Status DC Sodium Chloride (Normal Saline Flush) 3 ml QSHIFT PRN IV AFTER MEDS AND BLOOD DRAWS; Start 08/15/19 at 13:45 Naloxone HCl (Narcan) 0.4 mg PRN Q2MIN PRN IV SEE INSTRUCTIONS Last administered on 09/24/19at 15:15; Start 08/15/19 at 13:45 Sodium Chloride 1,000 ml @ 25 mls/hr Q24H IV Last administered on 09/13/19at 13:37; Start 08/15/19 at 13:37; Stop 09/16/19 at 13:09; Status DC Naloxone HCl (Narcan) 0.4 mg PRN Q2MIN PRN IV SEE INSTRUCTIONS; Start 08/15/19 at 14:30; Status UNV Sodium Chloride 1,000 ml @ 25 mls/hr Q24H IV ; Start 08/15/19 at 14:30; Status UNV Hydromorphone HCl 30 ml @ 0 mls/hr CONT PRN PRN IV PER PROTOCOL Last administered on 08/20/19at 16:08; Start 08/15/19 at 14:30; Stop 08/22/19 at 08:55; Status DC Potassium Acetate 55 meq/Magnesium Sulfate 20 meq/ Calcium Gluconate 10 meq/ Multivitamins 10 ml/Chromium/ Copper/Manganese/ Seleni/Zn 0.5 ml/ Insulin Human Regular 35 unit/ Total Parenteral Nutrition/Amino Acids/Dextrose/ Fat Emulsion Intravenous 1,920 ml @ 80 mls/hr TPN CONT IV Last administered on 08/15/19at 22:01; Start 08/15/19 at 22:00; Stop 08/16/19 at 21:59; Status DC Bumetanide (Bumex) 2 mg [id number] IV Last administered on 08/19/19at 13:50; Start 08/16/19 at 14:00; Stop 08/20/19 at 14:10; Status DC Meropenem 1 gm/ Sodium Chloride 100 ml @ 200 mls/hr Q8HRS IV Last administered on 09/09/19at 05:53; Start 08/16/19 at 14:00; Stop 09/09/19 at 09:31; Status DC Potassium Acetate 55 meq/Magnesium Sulfate 20 meq/ Calcium Gluconate 10 meq/ Multivitamins 10 ml/Chromium/ Copper/Manganese/ Seleni/Zn 0.5 ml/ Insulin Human Regular 35 unit/ Total Parenteral Nutrition/Amino Acids/Dextrose/ Fat Emulsion Intravenous 1,920 ml @ 80 mls/hr TPN CONT IV Last administered on 08/16/19at 22:02; Start 08/16/19 at 22:00; Stop 08/17/19 at 21:59; Status DC Hydromorphone HCl (Dilaudid Standard GOLF RANGE ATTENDANT) 12 mg STK-MED ONCE IV ; Start 08/15/19 at 14:35; Stop 08/16/19 at 13:53; Status DC Artificial Tears (Artificial Tears) 1 drop PRN Q15MIN PRN OU DRY EYE Last administered on 10/03/19at 03:38; Start 08/17/19 at 05:30 Hydromorphone HCl (Dilaudid Standard GOLF RANGE ATTENDANT) 12 mg STK-MED ONCE IV ; Start 08/16/19 at 12:05; Stop 08/17/19 at 09:15; Status DC Potassium Acetate 65 meq/Magnesium Sulfate 20 meq/ Calcium Gluconate 10 meq/ Multivitamins 10 ml/Chromium/ Copper/Manganese/ Seleni/Zn 0.5 ml/ Insulin Human Regular 30 unit/ Total Parenteral Nutrition/Amino Acids/Dextrose/ Fat Emulsion Intravenous 1,920 ml @ 80 mls/hr TPN CONT IV Last administered on 08/17/19at 22:22; Start 08/17/19 at 22:00; Stop 08/18/19 at 21:59; Status DC Cyclobenzaprine HCl (Flexeril) 10 mg PRN Q6HRS PRN PO MUSCLE SPASMS; Start 08/18/19 at 10:45 Potassium Acetate 55 meq/Magnesium Sulfate 20 meq/ Calcium Gluconate 10 meq/ Multivitamins 10 ml/Chromium/ Copper/Manganese/ Seleni/Zn 0.5 ml/ Insulin Human Regular 30 unit/ Total Parenteral Nutrition/Amino Acids/Dextrose/ Fat Emulsion Intravenous 1,920 ml @ 80 mls/hr TPN CONT IV Last administered on 08/19/19at 01:00; Start 08/18/19 at 22:00; Stop 08/19/19 at 21:59; Status DC Magnesium Sulfate 50 ml @ 25 mls/hr 1X ONCE IV Last administered on 08/18/19at 17:18; Start 08/18/19 at 12:45; Stop 08/18/19 at 14:44; Status DC Potassium Chloride/Water 100 ml @ 100 mls/hr 1X ONCE IV Last administered on 08/19/19at 11:27; Start 08/19/19 at 12:00; Stop 08/19/19 at 12:59; Status DC Hydromorphone HCl (Dilaudid Standard GOLF RANGE ATTENDANT) 12 mg STK-MED ONCE IV ; Start 08/17/19 at 10:50; Stop 08/19/19 at 11:02; Status DC Hydromorphone HCl (Dilaudid Standard GOLF RANGE ATTENDANT) 12 mg STK-MED ONCE IV ; Start 08/18/19 at 13:47; Stop 08/19/19 at 11:03; Status DC Potassium Acetate 30 meq/Magnesium Sulfate 20 meq/ Calcium Gluconate 10 meq/ Multivitamins 10 ml/Chromium/ Copper/Manganese/ Seleni/Zn 0.5 ml/ Insulin Human Regular 30 unit/ Potassium Chloride 30 meq/ Total Parenteral Nutrition/Amino Acids/Dextrose/ Fat Emulsion Intravenous 1,920 ml @ 80 mls/hr TPN CONT IV Last administered on 08/19/19at 22:34; Start 08/19/19 at 22:00; Stop 08/20/19 at 21:59; Status DC Potassium Chloride/Water 100 ml @ 100 mls/hr Q1H IV Last administered on 08/20/19at 13:05; Start 08/20/19 at 07:00; Stop 08/20/19 at 10:59; Status DC Magnesium Sulfate 50 ml @ 25 mls/hr 1X ONCE IV Last administered on 08/20/19at 10:34; Start 08/20/19 at 10:30; Stop 08/20/19 at 12:29; Status DC Potassium Chloride 75 meq/ Magnesium Sulfate 20 meq/Calcium Gluconate 10 meq/ Multivitamins 10 ml/Chromium/ Copper/Manganese/ Seleni/Zn 0.5 ml/ Insulin Human Regular 30 unit/ Total Parenteral Nutrition/Amino Acids/Dextrose/ Fat Emulsion Intravenous 1,920 ml @ 80 mls/hr TPN CONT IV Last administered on 08/20/19at 21:51; Start 08/20/19 at 22:00; Stop 08/21/19 at 22:00; Status DC Potassium Chloride 75 meq/ Magnesium Sulfate 20 meq/Calcium Gluconate 10 meq/ Multivitamins 10 ml/Chromium/ Copper/Manganese/ Seleni/Zn 0.5 ml/ Insulin Human Regular 25 unit/ Total Parenteral Nutrition/Amino Acids/Dextrose/ Fat Emulsion Intravenous 1,920 ml @ 80 mls/hr TPN CONT IV Last administered on 08/21/19at 22:04; Start 08/21/19 at 22:00; Stop 08/22/19 at 21:59; Status DC Hydromorphone HCl (Dilaudid) 0.4 mg PRN Q4HRS PRN IVP PAIN Last administered on 08/22/19at 10:57; Start 08/22/19 at 09:00; Stop 08/22/19 at 18:59; Status DC Micafungin Sodium 100 mg/Dextrose 100 ml @ 100 mls/hr Q24H IV Last ad ministered on 09/13/19at 12:17; Start 08/22/19 at 11:00; Stop 09/14/19 at 09:59; Status DC Daptomycin 485 mg/ Sodium Chloride 50 ml @ 100 mls/hr Q24H IV Last administered on 08/29/19at 13:10; Start 08/22/19 at 11:00; Stop 08/30/19 at 07:44; Status DC Potassium Chloride 75 meq/ Magnesium Sulfate 15 meq/Calcium Gluconate 8 meq/ Multivitamins 10 ml/Chromium/ Copper/Manganese/ Seleni/Zn 0.5 ml/ Insulin Human Regular 25 unit/ Total Parenteral Nutrition/Amino Acids/Dextrose/ Fat Emulsion Intravenous 1,920 ml @ 80 mls/hr TPN CONT IV Last administered on 08/22/19at 23:08; Start 08/22/19 at 22:00; Stop 08/23/19 at 21:59; Status DC Haloperidol Lactate (Haldol Inj) 3 mg 1X ONCE IVP Last administered on 08/22/19at 14:37; Start 08/22/19 at 14:30; Stop 08/22/19 at 14:31; Status DC Hydromorphone HCl (Dilaudid) 1 mg PRN Q4HRS PRN IVP PAIN Last administered on 09/05/19at 06:25; Start 08/22/19 at 19:00; Stop 09/05/19 at 17:10; Status DC Potassium Chloride 75 meq/ Magnesium Sulfate 15 meq/Calcium Gluconate 8 meq/ Multivitamins 10 ml/Chromium/ Copper/Manganese/ Seleni/Zn 0.5 ml/ Insulin Human Regular 20 unit/ Total Parenteral Nutrition/Amino Acids/Dextrose/ Fat Emulsion Intravenous 1,920 ml @ 80 mls/hr TPN CONT IV Last administered on 08/23/19at 22:10; Start 08/23/19 at 22:00; Stop 08/24/19 at 21:59; Status DC Lidocaine HCl (Buffered Lidocaine 1%) 3 ml STK-MED ONCE .ROUTE ; Start 08/24/19 at 11:31; Stop 08/24/19 at 11:31; Status DC Lidocaine HCl (Buffered Lidocaine 1%) 3 ml STK-MED ONCE .ROUTE ; Start 08/24/19 at 12:28; Stop 08/24/19 at 12:29; Status DC Lidocaine HCl (Buffered Lidocaine 1%) 6 ml 1X ONCE INJ Last administered on 08/24/19at 12:53; Start 08/24/19 at 12:45; Stop 08/24/19 at 12:46; Status DC Potassium Chloride 75 meq/ Magnesium Sulfate 15 meq/Calcium Gluconate 8 meq/ Multivitamins 10 ml/Chromium/ Copper/Manganese/ Seleni/Zn 0.5 ml/ Insulin Human Regular 20 unit/ Total Parenteral Nutrition/Amino Acids/Dextrose/ Fat Emulsion Intravenous 1,920 ml @ 80 mls/hr TPN CONT IV Last administered on 08/24/19at 22:00; Start 08/24/19 at 22:00; Stop 08/25/19 at 21:59; Status DC Potassium Chloride 75 meq/ Magnesium Sulfate 15 meq/Calcium Gluconate 8 meq/ Multivitamins 10 ml/Chromium/ Copper/Manganese/ Seleni/Zn 0.5 ml/ Insulin Human Regular 15 unit/ Total Parenteral Nutrition/Amino Acids/Dextrose/ Fat Emulsion Intravenous 1,920 ml @ 80 mls/hr TPN CONT IV Last administered on 08/25/19at 22:28; Start 08/25/19 at 22:00; Stop 08/26/19 at 21:59; Status DC Vecuronium [place] (Norcuron Bolus) 6 mg PRN Q6HRS PRN IV VENT ASYNCHRONY; Start 08/25/19 at 19:15; Stop 08/25/19 at 19:35; Status DC Bumetanide (Bumex) 2 mg 1X ONCE IV Last administered on 08/25/19at 22:09; Start 08/25/19 at 19:45; Stop 08/25/19 at 19:46; Status DC Lidocaine HCl (Buffered Lidocaine 1%) 3 ml STK-MED ONCE .ROUTE ; Start 08/26/19 at 07:59; Stop 08/26/19 at 07:59; Status DC Midazolam HCl (Versed) 5 mg STK-MED ONCE .ROUTE ; Start 08/26/19 at 08:36; Stop 08/26/19 at 08:36; Status DC Fentanyl Citrate (Fentanyl 5ml Vial) 250 mcg STK-MED ONCE .ROUTE ; Start 08/26/19 at 08:36; Stop 08/26/19 at 08:37; Status DC Lidocaine HCl (Buffered Lidocaine 1%) 3 ml 1X ONCE IJ Last administered on 08/26/19at 09:30; Start 08/26/19 at 09:15; Stop 08/26/19 at 09:16; Status DC Midazolam HCl (Versed) 5 mg 1X ONCE IV Last administered on 08/26/19at 09:30; Start 08/26/19 at 09:15; Stop 08/26/19 at 09:16; Status DC Fentanyl Citrate (Fentanyl 5ml Vial) 250 mcg 1X ONCE IV Last administered on at 09:30; Start 08/26/19 at 09:15; Stop 08/26/19 at 09:16; Status DC Bumetanide (Bumex) 2 mg DAILY IV Last administered on 09/05/19at 08:07; Start 08/26/19 at 10:00; Stop 09/05/19 at 17:15; Status DC Potassium Chloride 75 meq/ Magnesium Sulfate 15 meq/ Multivitamins 10 ml/Chromium/ Copper/Manganese/ Seleni/Zn 0.5 ml/ Insulin Human Regular 15 unit/ Total Parenteral Nutrition/Amino Acids/Dextrose/ Fat Emulsion Intravenous 1,920 ml @ 80 mls/hr TPN CONT IV Last administered on 08/26/19at 21:59; Start 08/26/19 at 22:00; Stop 08/27/19 at 21:59; Status DC Metoclopramide HCl (Reglan Vial) 10 mg PRN Q3HRS PRN IVP NAUSEA/VOMITING-3rd choice Last administered on 09/01/19at 04:25; Start 08/27/19 at 16:45 Potassium Chloride 75 meq/ Magnesium Sulfate 15 meq/ Multivitamins 10 ml/Chromium/ Copper/Manganese/ Seleni/Zn 0.5 ml/ Insulin Human Regular 15 unit/ Total Parenteral Nutrition/Amino Acids/Dextrose/ Fat Emulsion Intravenous 1,920 ml @ 80 mls/hr TPN CONT IV Last administered on 08/27/19at 22:41; Start 08/27/19 at 22:00; Stop 08/28/19 at 21:59; Status DC Magnesium Sulfate 50 ml @ 25 mls/hr 1X ONCE IV Last administered on 08/28/19at 10:44; Start 08/28/19 at 09:00; Stop 08/28/19 at 10:59; Status DC Potassium Chloride/Water 100 ml @ 100 mls/hr 1X ONCE IV Last administered on 08/28/19at 09:37; Start 08/28/19 at 09:00; Stop 08/28/19 at 09:59; Status DC Duloxetine HCl (Cymbalta) 30 mg DAILY PO Last administered on 08/29/19at 09:48; Start 08/28/19 at 14:00; Stop 08/31/19 at 10:25; Status DC Potassium Chloride 80 meq/ Magnesium Sulfate 20 meq/ Multivitamins 10 ml/Chromium/ Copper/Manganese/ Seleni/Zn 0.5 ml/ Insulin Human Regular 15 unit/ Total Parenteral Nutrition/Amino Acids/Dextrose/ Fat Emulsion Intravenous 1,920 ml @ 80 mls/hr TPN CONT IV Last administered on 08/28/19at 21:42; Start 08/28/19 at 22:00; Stop 08/29/19 at 21:59; Status DC Potassium Chloride 80 meq/ Magnesium Sulfate 20 meq/ Multivitamins 10 ml/Chromium/ Copper/Manganese/ Seleni/Zn 0.5 ml/ Insulin Human Regular 15 unit/ Total Parenteral Nutrition/Amino Acids/Dextrose/ Fat Emulsion Intravenous 1,920 ml @ 80 mls/hr TPN CONT IV Last administered on 08/29/19at 22:20; Start 08/29/19 at 22:00; Stop 08/30/19 at 21:59; Status DC Lidocaine HCl (Buffered Lidocaine 1%) 3 ml STK-MED ONCE .ROUTE ; Start 08/30/19 at 09:54; Stop 08/30/19 at 09:55; Status DC Hydromorphone HCl (Dilaudid Standard GOLF RANGE ATTENDANT) 12 mg STK-MED ONCE IV ; Start 08/19/19 at 15:50; Stop 08/30/19 at 11:24; Status DC Potassium Chloride 80 meq/ Magnesium Sulfate 20 meq/ Multivitamins 10 ml/Chromium/ Copper/Manganese/ Seleni/Zn 0.5 ml/ Insulin Human Regular 15 unit/ Total Parenteral Nutrition/Amino Acids/Dextrose/ Fat Emulsion Intravenous 1,920 ml @ 80 mls/hr TPN CONT IV Last administered on 08/30/19at 21:40; Start 08/30/19 at 22:00; Stop 08/31/19 at 21:59; Status DC Lidocaine HCl (Buffered Lidocaine 1%) 6 ml 1X ONCE INJ Last administered on 08/30/19at 14:15; Start 08/30/19 at 14:15; Stop 08/30/19 at 14:16; Status DC Potassium Chloride 80 meq/ Magnesium Sulfate 20 meq/ Multivitamins 10 ml/Chromium/ Copper/Manganese/ Seleni/Zn 1 ml/ Insulin Human Regular 15 unit/ Total Parenteral Nutrition/Amino Acids/Dextrose/ Fat Emulsion Intravenous 1,920 ml @ 80 mls/hr TPN CONT IV Last administered on 08/31/19at 22:04; Start 08/31/19 at 22:00; Stop 09/01/19 at 21:59; Status DC Potassium Chloride/Water 100 ml @ 100 mls/hr 1X ONCE IV Last administered on 09/01/19at 11:34; Start 09/01/19 at 11:00; Stop 09/01/19 at 11:59; Status DC Potassium Chloride 90 meq/ Magnesium Sulfate 20 meq/ Multivitamins 10 ml/Chromium/ Copper/Manganese/ Seleni/Zn 1 ml/ Insulin Human Regular 15 unit/ Total Parenteral Nutrition/Amino Acids/Dextrose/ Fat Emulsion Intravenous 1,920 ml @ 80 mls/hr TPN CONT IV Last administered on 09/01/19at 22:57; Start 09/01/19 at 22:00; Stop 09/02/19 at 21:59; Status DC Potassium Chloride 90 meq/ Magnesium Sulfate 20 meq/ Multivitamins 10 ml/Chromium/ Copper/Manganese/ Seleni/Zn 1 ml/ Insulin Human Regular 15 unit/ Total Parenteral Nutrition/Amino Acids/Dextrose/ Fat Emulsion Intravenous 1,920 ml @ 80 mls/hr TPN CONT IV Last administered on 09/02/19at 22:48; Start 09/02/19 at 22:00; Stop 09/03/19 at 21:59; Status DC Potassium Chloride 90 meq/ Magnesium Sulfate 20 meq/ Multivitamins 10 ml/Chromium/ Copper/Manganese/ Seleni/Zn 1 ml/ Insulin Human Regular 15 unit/ Total Parenteral Nutrition/Amino Acids/Dextrose/ Fat Emulsion Intravenous 1,890 ml @ 78.75 mls/ hr TPN CONT IV Last administered on 09/03/19at 22:15; Start 09/03/19 at 22:00; Stop 09/04/19 at 21:59; Status DC Linezolid/Dextrose 300 ml @ 300 mls/hr Q12HR IV Last administered on 09/06/19at 21:08; Start 09/04/19 at 09:00; Stop 09/07/19 at 08:11; Status DC Daptomycin 450 mg/ Sodium Chloride 50 ml @ 100 mls/hr Q24H IV Last administered on 09/07/19at 09:25; Start 09/04/19 at 09:00; Stop 09/08/19 at 08: 30; Status DC Potassium Chloride 90 meq/ Magnesium Sulfate 20 meq/ Multivitamins 10 ml/Chromium/ Copper/Manganese/ Seleni/Zn 1 ml/ Insulin Human Regular 15 unit/ Total Parenteral Nutrition/Amino Acids/Dextrose/ Fat Emulsion Intravenous 1,890 ml @ 78.75 mls/ hr TPN CONT IV Last administered on 09/04/19at 21:34; Start 09/04/19 at 22:00; Stop 09/05/19 at 21:59; Status DC Lorazepam (Ativan Inj) 2 mg STK-MED ONCE .ROUTE ; Start 09/04/19 at 14:58; Stop 09/04/19 at 14:58; Status DC Metoprolol Tartrate (Lopressor Vial) 5 mg 1X ONCE IVP Last administered on 09/04/19at 15:31; Start 09/04/19 at 15:15; Stop 09/04/19 at 15:16; Status DC Lorazepam (Ativan Inj) 2 mg 1X ONCE IVP Last administered on 09/04/19at 15:30; Start 09/04/19 at 15:15; Stop 09/04/19 at 15:16; Status DC Enoxaparin Sodium (Lovenox 40mg Syringe) 40 mg Q24H SQ Last administered on 09/23/19at 17:44; Start 09/04/19 at 17:00; Stop 09/25/19 at 06:50; Status DC Lorazepam (Ativan Inj) 1 mg PRN Q4HRS PRN IVP ANXIETY / AGITATION MILD-MOD Last administered on 09/18/19at 15:55; Start 09/04/19 at 19:15; Stop 09/20/19 at 11:45; Status DC Lorazepam (Ativan Inj) 2 mg PRN Q4HRS PRN IVP ANXIETY / AGITATION SEVERE Last administered on 09/19/19at 07:55; Start 09/04/19 at 19:15; Stop 09/20/19 at 11:45; Status DC Fentanyl Citrate (Fentanyl 2ml Vial) 50 mcg PRN Q4HRS PRN IVP SEVERE PAIN Last administered on 10/01/19at 05:15; Start 09/05/19 at 13:15; Stop 10/02/19 at 09:29; Status DC Fentanyl Citrate (Fentanyl 2ml Vial) 25 mcg PRN Q4HRS PRN IVP MODERATE PAIN Last administered on 10/01/19at 00:27; Start 09/05/19 at 13:15; Stop 10/02/19 at 09:30; Status DC Potassium Chloride 90 meq/ Magnesium Sulfate 20 meq/ Multivitamins 10 ml/Chromium/ Copper/Manganese/ Seleni/Zn 1 ml/ Insulin Human Regular 15 unit/ Total Parenteral Nutrition/Amino Acids/Dextrose/ Fat Emulsion Intravenous 1,890 ml @ 78.75 mls/ hr TPN CONT IV Last administered on 09/05/19at 22:18; Start 09/05/19 at 22:00; Stop 09/06/19 at 21:59; Status DC Furosemide (Lasix) 40 mg 1X ONCE IVP Last administered on 09/05/19at 21:51; Start 09/05/19 at 21:45; Stop 09/05/19 at 21:48; Status DC Albumin Human 100 ml @ 100 mls/hr 1X PRN PRN IV SEE COMMENTS; Start 09/06/19 at 01:30 Furosemide (Lasix) 40 mg [id number] IVP Last administered on 09/21/19at 08:04; Start 09/06/19 at 14:00; Stop 09/21/19 at 13:07; Status DC Potassium Chloride 90 meq/ Magnesium Sulfate 20 meq/ Multivitamins 10 ml/Chromium/ Copper/Manganese/ Seleni/Zn 1 ml/ Insulin Human Regular 15 unit/ Total Parenteral Nutrition/Amino Acids/Dextrose/ Fat Emulsion Intravenous 1,800 ml @ 75 mls/hr TPN CONT IV Last administered on 09/06/19at 22:31; Start 09/06/19 at 22:00; Stop 09/07/19 at 21:59; Status DC Potassium Chloride 90 meq/ Magnesium Sulfate 20 meq/ Multivitamins 10 ml/Chromium/ Copper/Manganese/ Seleni/Zn 1 ml/ Insulin Human Regular 15 unit/ Total Parenteral Nutrition/Amino Acids/Dextrose/ Fat Emulsion Intravenous 1,800 ml @ 75 mls/hr TPN CONT IV Last administered on 09/07/19at 22:28; Start 09/07/19 at 22:00; Stop 09/08/19 at 21:59; Status DC Potassium Chloride 110 meq/ Magnesium Sulfate 20 meq/ Multivitamins 10 ml/Chromium/ Copper/Manganese/ Seleni/Zn 1 ml/ Insulin Human Regular 15 unit/ Total Parenteral Nutrition/Amino Acids/Dextrose/ Fat Emulsion Intravenous 1,800 ml @ 75 mls/hr TPN CONT IV Last administered on 09/08/19at 22:01; Start 09/08/19 at 22:00; Stop 09/09/19 at 21:59; Status DC Saliva Substitute (Biotene Moisturizing Mouth) 2 spray PRN Q15MIN PRN PO DRY MOUTH; Start 09/08/19 at 11:00 Potassium Chloride 110 meq/ Magnesium Sulfate 20 meq/ Multivitamins 10 ml/Chromium/ Copper/Manganese/ Seleni/Zn 1 ml/ Insulin Human Regular 15 unit/ Total Parenteral Nutrition/Amino Acids/Dextrose/ Fat Emulsion Intravenous 1,800 ml @ 75 mls/hr TPN CONT IV Last administered on 09/09/19at 22:21; Start 09/09/19 at 22:00; Stop 09/10/19 at 21:59; Status DC Potassium Chloride 110 meq/ Magnesium Sulfate 20 meq/ Multivitamins 10 ml/Chromium/ Copper/Manganese/ Seleni/Zn 1 ml/ Insulin Human Regular 15 unit/ Total Parenteral Nutrition/Amino Acids/Dextrose/ Fat Emulsion Intravenous 1,800 ml @ 75 mls/hr TPN CONT IV Last administered on 09/10/19at 22:04; Start 09/10/19 at 22:00; Stop 09/11/19 at 21:59; Status DC Potassium Chloride 110 meq/ Magnesium Sulfate 20 meq/ Multivitamins 10 ml/Chromium/ Copper/Manganese/ Seleni/Zn 1 ml/ Insulin Human Regular 15 unit/ Total Parenteral Nutrition/Amino Acids/Dextrose/ Fat Emulsion Intravenous 1,800 ml @ 75 mls/hr TPN CONT IV Last administered on 09/11/19at 22:48; Start 09/11/19 at 22:00; Stop 09/12/19 at 21:59; Status DC Potassium Chloride 70 meq/ Magnesium Sulfate 20 meq/ Multivitamins 10 ml/Chromium/ Copper/Manganese/ Seleni/Zn 1 ml/ Insulin Human Regular 15 unit/ Total Parenteral Nutrition/Amino Acids/Dextrose/ Fat Emulsion Intravenous 1,800 ml @ 75 mls/hr TPN CONT IV Last administered on 09/12/19at 21:39; Start 09/12/19 at 22:00; Stop 09/13/19 at 21:59; Status DC Meropenem 500 mg/ Sodium Chloride 50 ml @ 100 mls/hr Q6HRS IV Last administered on 09/14/19at 06:02; Start 09/12/19 at 18:00; Stop 09/14/19 at 09:59; Status DC Barium Sulfate (Varibar Thin Liquid Apple) 148 gm 1X ONCE PO ; Start 09/13/19 at 11:45; Stop 09/13/19 at 11:49; Status DC Potassium Chloride 70 meq/ Magnesium Sulfate 20 meq/ Multivitamins 10 ml/Chromium/ Copper/Manganese/ Seleni/Zn 1 ml/ Insulin Human Regular 15 unit/ Total Parenteral Nutrition/Amino Acids/Dextrose/ Fat Emulsion Intravenous 1,800 ml @ 75 mls/hr TPN CONT IV Last administered on 09/13/19at 22:27; Start 09/13/19 at 22:00; Stop 09/14/19 at 21:59; Status DC Piperacillin Sod/ Tazobactam Sod 3.375 gm/Sodium Chloride 50 ml @ 100 mls/hr Q6HRS IV Last administered on 09/22/19at 06:10; Start 09/14/19 at 12:00; Stop 09/22/19 at 07:26; Status DC Potassium Chloride 70 meq/ Magnesium Sulfate 20 meq/ Multivitamins 10 ml/Chromium/ Copper/Manganese/ Seleni/Zn 1 ml/ Insulin Human Regular 15 unit/ Total Parenteral Nutrition/Amino Acids/Dextrose/ Fat Emulsion Intravenous 1,800 ml @ 75 mls/hr TPN CONT IV Last administered on 09/14/19at 22:03; Start 09/14/19 at 22:00; Stop 09/15/19 at 21:59; Status DC Potassium Chloride 70 meq/ Magnesium Sulfate 20 meq/ Multivitamins 10 ml/Chromium/ Copper/Manganese/ Seleni/Zn 1 ml/ Insulin Human Regular 15 unit/ Total Parenteral Nutrition/Amino Acids/Dextrose/ Fat Emulsion Intravenous 1,800 ml @ 75 mls/hr TPN CONT IV Last administered on 09/15/19at 22:33; Start 09/15/19 at 22:00; Stop 09/16/19 at 21:59; Status DC Potassium Chloride 70 meq/ Magnesium Sulfate 20 meq/ Multivitamins 10 ml/Chromium/ Copper/Manganese/ Seleni/Zn 1 ml/ Insulin Human Regular 15 unit/ Total Parenteral Nutrition/Amino Acids/Dextrose/ Fat Emulsion Intravenous 1,800 ml @ 75 mls/hr TPN CONT IV Last administered on 09/16/19at 23:13; Start 09/16/19 at 22:00; Stop 09/17/19 at 21:59; Status DC Potassium Chloride 80 meq/ Magnesium Sulfate 20 meq/ Multivitamins 10 ml/C hromium/ Copper/Manganese/ Seleni/Zn 1 ml/ Insulin Human Regular 15 unit/ Total Parenteral Nutrition/Amino Acids/Dextrose/ Fat Emulsion Intravenous 1,800 ml @ 75 mls/hr TPN CONT IV Last administered on 09/17/19at 22:30; Start 09/17/19 at 22:00; Stop 09/18/19 at 21:59; Status DC Potassium Chloride 80 meq/ Magnesium Sulfate 20 meq/ Multivitamins 10 ml/Chromium/ Copper/Manganese/ Seleni/Zn 1 ml/ Insulin Human Regular 15 unit/ Total Parenteral Nutrition/Amino Acids/Dextrose/ Fat Emulsion Intravenous 1,800 ml @ 75 mls/hr TPN CONT IV Last administered on 09/18/19at 21:54; Start 09/18/19 at 22:00; Stop 09/19/19 at 21:59; Status DC Potassium Chloride/Water 100 ml @ 100 mls/hr 1X ONCE IV Last administered on 09/19/19at 10:15; Start 09/19/19 at 10:00; Stop 09/19/19 at 10:59; Status DC Potassium Chloride 90 meq/ Magnesium Sulfate 20 meq/ Multivitamins 10 ml/Chromium/ Copper/Manganese/ Seleni/Zn 1 ml/ Insulin Human Regular 20 unit/ Total Parenteral Nutrition/Amino Acids/Dextrose/ Fat Emulsion Intravenous 1,800 ml @ 75 mls/hr TPN CONT IV Last administered on 09/19/19at 22:28; Start 09/19/19 at 22:00; Stop 09/20/19 at 21:59; Status DC Potassium Chloride 90 meq/ Magnesium Sulfate 20 meq/ Multivitamins 10 ml/Chromium/ Copper/Manganese/ Seleni/Zn 1 ml/ Insulin Human Regular 20 unit/ Total Parenteral Nutrition/Amino Acids/Dextrose/ Fat Emulsion Intravenous 1,800 ml @ 75 mls/hr TPN CONT IV Last administered on 09/20/19at 22:08; Start 09/20/19 at 22:00; Stop 09/21/19 at 21:59; Status DC Lorazepam (Ativan Inj) 0.25 mg PRN Q4HRS PRN IVP ANXIETY / AGITATION Last administered on 10/01/19at 02:25; Start 09/21/19 at 07:30 Potassium Chloride 90 meq/ Magnesium Sulfate 20 meq/ Multivitamins 10 ml/Chromium/ Copper/Manganese/ Seleni/Zn 1 ml/ Insulin Human Regular 20 unit/ Total Parenteral Nutrition/Amino Acids/Dextrose/ Fat Emulsion Intravenous 1,800 ml @ 75 mls/hr TPN CONT IV Last administered on 09/21/19at 23:13; Start 09/21/19 at 22:00; Stop 09/22/19 at 21:59; Status DC Furosemide (Lasix) 40 mg DAILY IVP Last administered on 09/23/19at 11:14; Start 09/21/19 at 13:30; Stop 09/25/19 at 09:12; Status DC Fluoxetine HCl (PROzac) 20 mg QHS PEG Last administered on 10/06/19at 22:53; Start 09/22/19 at 21:00 Fentanyl (Duragesic 50mcg/ Hr Patch) 1 patch Q72H TD Last administered on 09/22/19at 21:22; Start 09/22/19 at 21:00; Stop 10/01/19 at 12:00; Status DC Potassium Chloride 40 meq/ Potassium Acetate 60 meq/Magnesium Sulfate 10 meq/ Multivitamins 10 ml/Chromium/ Copper/Manganese/ Seleni/Zn 1 ml/ Insulin Human Regular 20 unit/ Total Parenteral Nutrition/Amino Acids/Dextrose/ Fat Emulsion Intravenous 1,800 ml @ 75 mls/hr TPN CONT IV Last administered on 09/23/19at 00:03; Start 09/22/19 at 22:00; Stop 09/23/19 at 21:59; Status DC Potassium Acetate 80 meq/Magnesium Sulfate 5 meq/ Multivitamins 10 ml/Chromium/ Copper/Manganese/ Seleni/Zn 1 ml/ Insulin Human Regular 20 unit/ Total Parenteral Nutrition/Amino Acids/Dextrose/ Fat Emulsion Intravenous 1,920 ml @ 80 mls/hr TPN CONT IV Last administered on 09/23/19at 21:59; Start 09/23/19 at 22:00; Stop 09/24/19 at 21:59; Status DC Potassium Acetate 60 meq/Magnesium Sulfate 5 meq/ Multivitamins 10 ml/Chromium/ Copper/Manganese/ Seleni/Zn 1 ml/ Insulin Human Regular 30 unit/ Total Parenteral Nutrition/Amino Acids/Dextrose/ Fat Emulsion Intravenous 1,920 ml @ 80 mls/hr TPN CONT IV Last administered on 09/24/19at 21:54; Start 09/24/19 at 22:00; Stop 09/25/19 at 21:59; Status DC Norepinephrine Bitartrate 8 mg/ Dextrose 258 ml @ 13.332 mls/ hr CONT PRN IV PER PROTOCOL Last administered on 09/25/19at 21:46; Start 09/25/19 at 06:30 Albumin Human 500 ml @ 125 mls/hr 1X ONCE IV Last administered on 09/25/19at 08:10; Start 09/25/19 at 08:15; Stop 09/25/19 at 12:14; Status DC Potassium Acetate 40 meq/Magnesium Sulfate 5 meq/ Multivitamins 10 ml/Chromium/ Copper/Manganese/ Seleni/Zn 1 ml/ Insulin Human Regular 30 unit/ Total Parenteral Nutrition/Amino Acids/Dextrose/ Fat Emulsion Intravenous 1,920 ml @ 80 mls/hr TPN CONT IV Last administered on 09/25/19at 22:23; Start 09/25/19 at 22:00; Stop 09/26/19 at 21:59; Status DC Meropenem 1 gm/ Sodium Chloride 100 ml @ 200 mls/hr Q8HRS IV ; Start 09/25/19 at 14:00; Status Cancel Meropenem 1 gm/ Sodium Chloride 100 ml @ 200 mls/hr Q8HRS IV Last administered on 09/25/19at 11:04; Start 09/25/19 at 10:00; Stop 09/25/19 at 13:00; Status DC Meropenem 1 gm/ Sodium Chloride 100 ml @ 200 mls/hr Q12HR IV Last administered on 10/07/19at 08:35; Start 09/25/19 at 21:00 Sodium Chloride 1,000 ml @ 1,000 mls/hr 1X ONCE IV Last administered on 09/25/19at 11:06; Start 09/25/19 at 10:45; Stop 09/25/19 at 11:44; Status DC Micafungin Sodium 100 mg/Dextrose 100 ml @ 100 mls/hr Q24H IV Last administered on 10/06/19at 10:57; Start 09/25/19 at 11:00 Daptomycin 410 mg/ Sodium Chloride 50 ml @ 100 mls/hr Q24H IV Last administered on 09/27/19at 13:33; Start 09/25/19 at 14:00; Stop 09/28/19 at 08:30; Status DC Midazolam HCl (Versed) 2 mg STK-MED ONCE .ROUTE ; Start 09/25/19 at 14:47; Stop 09/25/19 at 14:48; Status DC Fentanyl Citrate (Fentanyl 2ml Vial) 100 mcg STK-MED ONCE .ROUTE ; Start 09/25/19 at 14:47; Stop 09/25/19 at 14:48; Status DC Flumazenil (Romazicon) 0.5 mg STK-MED ONCE IV ; Start 09/25/19 at 14:48; Stop 09/25/19 at 14:48; Status DC Naloxone HCl (Narcan) 0.4 mg STK-MED ONCE .ROUTE ; Start 09/25/19 at 14:48; Stop 09/25/19 at 14:48; Status DC Lidocaine HCl (Lidocaine 1% 20ml Vial) 20 ml STK-MED ONCE .ROUTE ; Start 09/25/19 at 14:48; Stop 09/25/19 at 14:48; Status DC Midazolam HCl (Versed) 2 mg 1X ONCE IV Last administered on 09/25/19at 15:28; Start 09/25/19 at 15:00; Stop 09/25/19 at 15:01; Status DC Fentanyl Citrate (Fentanyl 2ml Vial) 100 mcg 1X ONCE IV Last administered on 09/25/19 15:28; Start 09/25/19 at 15:00; Stop 09/25/19 at 15:01; Status DC Lidocaine HCl (Lidocaine 1% 20ml Vial) 20 ml 1X ONCE INJ Last administered on 09/25/19at 15:30; Start 09/25/19 at 15:00; Stop 09/25/19 at 15:01; Status DC Sodium Chloride 1,000 ml @ 100 mls/hr Q10H IV Last administered on 10/04/19at 07:30; Start 09/25/19 at 20:00; Stop 10/04/19 at 11:26; Status DC Sodium Bicarbonate (Sodium Bicarb Adult 8.4% Syr) 50 meq 1X ONCE IV Last admi nistered on 09/25/19at 21:47; Start 09/25/19 at 22:00; Stop 09/25/19 at 22:01; Status DC Potassium Acetate 40 meq/Magnesium Sulfate 5 meq/ Multivitamins 10 ml/Chromium/ Copper/Manganese/ Seleni/Zn 1 ml/ Insulin Human Regular 30 unit/ Total Parenteral Nutrition/Amino Acids/Dextrose/ Fat Emulsion Intravenous 1,920 ml @ 80 mls/hr TPN CONT IV Last administered on 09/26/19 22:28; Start 09/26/19 at 22:00; Stop 09/27/19 at 21:59; Status DC Sodium Chloride 500 ml @ 500 mls/hr 1X ONCE IV Last administered on 09/27/19at 06:39; Start 09/27/19 at 06:45; Stop 09/27/19 at 07:44; Status DC Potassium Acetate 40 meq/Magnesium Sulfate 5 meq/ Multivitamins 10 ml/Chromium/ Copper/Manganese/ Seleni/Zn 1 ml/ Insulin Human Regular 30 unit/ Total Parenteral Nutrition/Amino Acids/Dextrose/ Fat Emulsion Intravenous 1,920 ml @ 80 mls/hr TPN CONT IV Last administered on 09/27/19at 22:03; Start 09/27/19 at 22:00; Stop 09/28/19 at 21:59; Status DC Metoprolol Tartrate (Lopressor Vial) 5 mg PRN Q6HRS PRN IVP HYPERTENSION Last administered on 10/06/19at 10:14; Start 09/28/19 at 09:00 Potassium Acetate 40 meq/Magnesium Sulfate 5 meq/ Multivitamins 10 ml/Chromium/ Copper/Manganese/ Seleni/Zn 1 ml/ Insulin Human Regular 30 unit/ Total Parenteral Nutrition/Amino Acids/Dextrose/ Fat Emulsion Intravenous 1,920 ml @ 80 mls/hr TPN CONT IV Last administered on 09/28/19at 21:26; Start 09/28/19 at 22:00; Stop 09/29/19 at 21:59; Status DC Potassium Acetate 40 meq/Magnesium Sulfate 5 meq/ Multivitamins 10 ml/Chromium/ Copper/Manganese/ Seleni/Zn 1 ml/ Insulin Human Regular 30 unit/ Total Parenteral Nutrition/Amino Acids/Dextrose/ Fat Emulsion Intravenous 1,920 ml @ 80 mls/hr TPN CONT IV Last administered on 09/29/19at 23:23; Start 09/29/19 at 22:00; Stop 09/30/19 at 21:59; Status DC Potassium Acetate 40 meq/Magnesium Sulfate 5 meq/ Multivitamins 10 ml/Chromium/ Copper/Manganese/ Seleni/Zn 1 ml/ Insulin Human Regular 30 unit/ Total Parenteral Nutrition/Amino Acids/Dextrose/ Fat Emulsion Intravenous 1,920 ml @ 80 mls/hr TPN CONT IV Last administered on 09/30/19at 21:35; Start 09/30/19 at 22:00; Stop 10/01/19 at 21:59; Status DC Furosemide (Lasix) 20 mg 1X ONCE IVP Last administered on 10/01/19at 06:26; Start 10/01/19 at 06:15; Stop 10/01/19 at 06:16; Status DC Methylprednisolone Sodium Succinate (SOLU-Medrol 125MG VIAL) 125 mg 1X ONCE IV Last administered on 10/01/19at 06:26; Start 10/01/19 at 06:15; Stop 10/01/19 at 06:16; Status DC Albuterol/ Ipratropium (Duoneb) 3 ml Q4HRS NEB Last administered on 10/07/19at 09:33; Start 10/01/19 at 08:00 Fentanyl Citrate 30 ml @ 0 mls/hr CONT PRN IV SEE PROTOCOL Last administered on 10/06/19at 22:54; Start 10/01/19 at 06:00 Propofol 100 ml @ 0 mls/hr CONT PRN IV SEE PROTOCOL Last administered on 10/05/19at 22:22; Start 10/01/19 at 06:00 Fentanyl Citrate (Fentanyl 2ml Vial) 25 mcg PRN Q1HR PRN IV SEE COMMENTS; Start 10/01/19 at 06:00 Fentanyl Citrate (Fentanyl 2ml Vial) 50 mcg PRN Q1HR PRN IV SEE COMMENTS; Start 10/01/19 at 06:00 Chlorhexidine Gluconate (Peridex) 15 ml BID MM ; Start 10/01/19 at 09:00; Stop 10/01/19 at 07:58; Status DC Potassium Acetate 40 meq/Magnesium Sulfate 5 meq/ Multivitamins 10 ml/Chromium/ Copper/Manganese/ Seleni/Zn 1 ml/ Insulin Human Regular 30 unit/ Total Parenteral Nutrition/Amino Acids/Dextrose/ Fat Emulsion Intravenous 1,920 ml @ 80 mls/hr TPN CONT IV Last administered on 10/01/19at 21:19; Start 10/01/19 at 22:00; Stop 10/02/19 at 21:59; Status DC Acetylcysteine (Mucomyst 20% Resp Treatment) 600 mg BID NEB Last administered on 10/07/19at 09:33; Start 10/01/19 at 21:00 Magnesium Sulfate 100 ml @ 25 mls/hr 1X ONCE IV Last administered on 10/01/19at 15:48; Start 10/01/19 at 15:45; Stop 10/01/19 at 19:44; Status DC Potassium Acetate 40 meq/Magnesium Sulfate 5 meq/ Multivitamins 10 ml/Chromium/ Copper/Manganese/ Seleni/Zn 1 ml/ Insulin Human Regular 30 unit/ Total Parenteral Nutrition/Amino Acids/Dextrose/ Fat Emulsion Intravenous 1,920 ml @ 80 mls/hr TPN CONT IV Last administered on 10/02/19at 21:35; Start 10/02/19 at 22:00; Stop 10/03/19 at 21:59; Status DC Potassium Chloride/Water 100 ml @ 100 mls/hr Q1H IV Last administered on 10/03/19at 08:31; Start 10/03/19 at 07:00; Stop 10/03/19 at 08:59; Status DC Potassium Acetate 40 meq/Magnesium Sulfate 5 meq/ Multivitamins 10 ml/Chromium/ Copper/Manganese/ Seleni/Zn 1 ml/ Insulin Human Regular 30 unit/ Total Parenteral Nutrition/Amino Acids/Dextrose/ Fat Emulsion Intravenous 1,920 ml @ 80 mls/hr TPN CONT IV Last administered on 10/03/19at 21:54; Start 10/03/19 at 22:00; Stop 10/04/19 at 19:34; Status DC Lidocaine HCl (Buffered Lidocaine 1%) 3 ml STK-MED ONCE .ROUTE ; Start 10/03/19 at 12:14; Stop 10/03/19 at 12:14; Status DC Lidocaine HCl (Buffered Lidocaine 1%) 3 ml 1X ONCE IJ Last administered on 10/03/19at 13:11; Start 10/03/19 at 13:00; Stop 10/03/19 at 13:01; Status DC Magnesium Sulfate 50 ml @ 25 mls/hr 1X ONCE IV ; Start 10/04/19 at 08:15; Stop 10/04/19 at 10:14; Status DC Potassium Acetate 40 meq/Magnesium Sulfate 10 meq/ Multivitamins 10 ml/Chromium/ Copper/Manganese/ Seleni/Zn 1 ml/ Insulin Human Regular 20 unit/ Total Parenteral Nutrition/Amino Acids/Dextrose/ Fat Emulsion Intravenous 1,920 ml @ 80 mls/hr TPN CONT IV Last administered on 10/04/19at 21:32; Start 10/04/19 at 22:00; Stop 10/05/19 at 21:59; Status DC Potassium Chloride/Water 100 ml @ 100 mls/hr Q1H IV Last administered on 10/05/19at 09:12; Start 10/05/19 at 08:00; Stop 10/05/19 at 09:59; Status DC Alteplase, Recombinant (Cathflo For Central Catheter Clearance) 4 mg 1X ONCE INT CAT ; Start 10/05/19 at 09:15; Stop 10/05/19 at 09:16; Status UNV Alteplase, Recombinant (Cathflo For Central Catheter Clearance) 4 mg 1X ONCE INT CAT ; Start 10/05/19 at 09:15; Stop 10/05/19 at 09:16; Status UNV Alteplase, Recombinant (Cathflo For Central Catheter Clearance) 4 mg 1X ONCE INT CAT ; Start 10/05/19 at 09:15; Stop 10/05/19 at 09:16; Status UNV Alteplase, Recombinant 4 mg/ Sodium Chloride 20 ml @ 20 mls/hr 1X ONCE IV Last administered on 10/05/19at 10:10; Start 10/05/19 at 10:00; Stop 10/05/19 at 10:59; Status DC Alteplase, Recombinant 4 mg/ Sodium Chloride 20 ml @ 20 mls/hr 1X ONCE IV Last administered on 10/05/19at 10:09; Start 10/05/19 at 10:00; Stop 10/05/19 at 10:59; Status DC Alteplase, Recombinant 4 mg/ Sodium Chloride 20 ml @ 20 mls/hr 1X ONCE IV Last administered on 10/05/19at 10:09; Start 10/05/19 at 10:00; Stop 10/05/19 at 10:59; Status DC Potassium Acetate 60 meq/Magnesium Sulfate 10 meq/ Multivitamins 10 ml/Chromium/ Copper/Manganese/ Seleni/Zn 1 ml/ Insulin Human Regular 20 unit/ Total Parenteral Nutrition/Amino Acids/Dextrose/ Fat Emulsion Intravenous 1,920 ml @ 80 mls/hr TPN CONT IV Last administered on 10/05/19at 21:55; Start 10/05/19 at 22:00; Stop 10/06/19 at 21:59; Status DC Albumin Human 500 ml @ 125 mls/hr 1X ONCE IV Last administered on 10/06/19at 12:01; Start 10/06/19 at 11:15; Stop 10/06/19 at 15:14; Status DC Sodium Chloride 500 ml @ 500 mls/hr 1X ONCE IV Last administered on 10/06/19at 13:50; Start 10/06/19 at 11:15; Stop 10/06/19 at 12:14; Status DC Potassium Acetate 60 meq/Magnesium Sulfate 14 meq/ Multivitamins 10 ml/Chromium/ Copper/Manganese/ Seleni/Zn 1 ml/ Insulin Human Regular 20 unit/ Total Parenteral Nutrition/Amino Acids/Dextrose/ Fat Emulsion Intravenous 1,920 ml @ 80 mls/hr TPN CONT IV Last administered on 10/06/19at 22:26; Start 10/06/19 at 22:00; Stop 10/07/19 at 21:59 Ciprofloxacin/ Dextrose 200 ml @ 200 mls/hr Q12HR IV Last administered on 10/07/19at 09:50; Start 10/06/19 at 21:00 Active Scripts Active Reported Bisoprolol Fumarate 5 Mg Tablet 10 Mg PO DAILY Vitals/I & O Vital Sign - Last 24 Hours 10/06/19 10/06/19 10/06/19 10/06/19 10:14 10:15 11:00 11:35 Pulse 144 119 Resp 36 25 B/P (MAP) 131/57 105/50 (68) Pulse Ox 98 99 99 O2 Delivery Tracheal Collar Tracheal Collar Tracheal Collar O2 Flow Rate 9.0 10/06/19 10/06/19 10/06/19 10/06/19 12:00 12:00 13:00 13:30 Temp 98.3 98.3 Pulse 116 108 109 Resp 22 18 18 B/P (MAP) 98/63 (75) 89/59 (69) 87/52 (64) Pulse Ox 99 99 99 O2 Delivery Trach Collar Tracheal Collar Tracheal Collar Tracheal Collar 10/06/19 10/06/19 10/06/19 10/06/19 14:00 15:00 15:33 16:00 Temp 97.9 97.9 Pulse 108 105 105 Resp 22 16 16 B/P (MAP) 109/68 (82) 91/59 (70) 102/68 (79) Pulse Ox 98 98 99 99 O2 Delivery Tracheal Collar Tracheal Collar Tracheal Collar Tracheal Collar O2 Flow Rate 9.0 10/06/19 10/06/19 10/06/19 10/06/19 16:00 17:00 18:00 19:00 Pulse 107 111 112 Resp 15 23 18 B/P (MAP) 91/51 (64) 114/64 (81) 102/64 (77) Pulse Ox 100 98 97 O2 Delivery Trach Collar Tracheal Collar Tracheal Collar Tracheal Collar 10/06/19 10/06/19 10/06/19 10/06/19 20:00 20:00 20:04 20:04 Temp 98.8 98.8 Pulse 112 Resp 17 B/P (MAP) 105/56 (72) Pulse Ox 98 99 99 O2 Delivery Tracheal Collar Trach Collar Tracheal Collar Tracheal Collar O2 Flow Rate 9.0 9.0 10/06/1918/20 618/20 10/05/ 21:00 22:00 23:00 23:58 Pulse 110 110 114 Resp 18 15 23 B/P (MAP) 114/61 (78) 106/52 (70) 111/72 (85) Pulse Ox 97 99 99 100 O2 Delivery Tracheal Collar Tracheal Collar Tracheal Collar Ventilator 10/07/19 10/07/19 10/07/19 10/07/19 00:00 00:06 01:00 02:00 Temp 98.2 98.2 Pulse 106 106 108 Resp 20 20 20 B/P (MAP) 97/64 (75) 114/72 (86) 139/84 (102) Pulse Ox 99 100 100 O2 Delivery Ventilator Trach Collar Ventilator Ventilator 10/07/19 10/07/19 10/07/19 10/07/19 03:00 04:00 04:00 05:00 Temp 98.3 98.3 Pulse 110 110 106 Resp 20 20 20 B/P (MAP) 134/77 (96) 94/55 (68) 93/55 (68) Pulse Ox 98 99 100 O2 Delivery Ventilator Ventilator Mechanical Ventilator Ventilator 10/07/19 10/07/19 10/07/19 10/07/19 05:08 06:00 07:00 08:00 Temp 100.7 100.7 Pulse 109 106 108 Resp 20 B/P (MAP) 96/62 (73) 98/61 (73) 100/54 (69) Pulse Ox 100 100 100 99 O2 Delivery Ventilator Ventilator Ventilator Ventilator 10/07/19 10/07/19 10/07/19 10/07/19 08:00 09:00 09:32 10:00 Pulse 112 Resp 20 B/P (MAP) 104/61 (75) Pulse Ox 98 98 98 O2 Delivery Mechanical Ventilator Ventilator Ventilator Tracheal Collar O2 Flow Rate 9.0 Intake and Output 10/06/19 10/06/19 10/07/19 15:00 23:00 07:00 Intake Total 846.85 ml 2254.43 ml 570 ml Output Total 535 ml 690 ml 1065 ml Balance 311.85 ml 1564.43 ml -495 ml Hemodynamically unstable?: No Is patient in severe pain?: No Is NPO status required?: No CARIN FERNANDEZ MD Oct 07, 2019 10:05
--- NOTE | 2019-10-07 10:48 | PDOC ---
PULMONARY PROGRESS NOTES Subjective off vent / , no distress Patient intubated on 07/10 , s/p trach 07/24, transferred back to ICU 09/22 for syncope with collapse developed anemia, blood drainage from RLQ abdomen drain site, and surrounding firmness / developed septic shock 09/24 from abdomen source, required levo 09/24 s/p 3 new drains 09/24 with brown color drainage/ oozing fluid around drains Vitals Vital Signs Date Time Temp Pulse Resp B/P (MAP) Pulse Ox O2 Delivery O2 Flow Rate FiO2 10/07/19 10:00 98 Tracheal Collar 9.0 10/07/19 09:00 112 20 104/61 (75) 10/07/19 08:00 100.7 100.7 Comments awake,no soa General: No acute distress, Lethargic HEENT: Other (nc at perrl nose clear neck trach site ok no lab no t hyromegaly) Lungs: Other (diminshed in bases, Rhonci in LLL) Cardiovascular: S1, S2 Abdomen: Soft, Non-tender, Other (bleeding from Sx. site RLQ and firmness) Extremities: Other (+1 BLE edema) Skin: Warm, Dry Labs Laboratory Tests Test 10/05/19 11:59 10/05/19 18:34 10/06/19 01:35 10/06/19 06:20 Glucose (Fingerstick) 146 mg/dL (70-99) 167 mg/dL (70-99) 159 mg/dL (70-99) White Blood Count 10.0 x10^3/uL (4.0-11.0) Red Blood Count 3.06 x10^6/uL (3.50-5.40) Hemoglobin 8.7 g/dL (12.0-15.5) Hematocrit 26.0 % (36.0-47.0) Mean Corpuscular Volume 85 fL (79-100) Mean Corpuscular Hemoglobin 28 pg (25-35) Mean Corpuscular Hemoglobin Concent 33 g/dL (31-37) Red Cell Distribution Width 18.2 % (11.5-14.5) Platelet Count 469 x10^3/uL (140-400) Neutrophils (%) (Auto) 81 % (31-73) Lymphocytes (%) (Auto) 13 % (24-48) Monocytes (%) (Auto) 5 % (0-9) Eosinophils (%) (Auto) 1 % (0-3) Basophils (%) (Auto) 0 % (0-3) Neutrophils # (Auto) 8.1 x10^3/uL (1.8-7.7) Lymphocytes # (Auto) 1.3 x10^3/uL (1.0-4.8) Monocytes # (Auto) 0.4 x10^3/uL (0.0-1.1) Eosinophils # (Auto) 0.1 x10^3/uL (0.0-0.7) Basophils # (Auto) 0.0 x10^3/uL (0.0-0.2) Sodium Level 137 mmol/L (136-145) Potassium Level 3.8 mmol/L (3.5-5.1) Chloride Level 106 mmol/L (98-107) Carbon Dioxide Level 24 mmol/L (21-32) Anion Gap 7 (6-14) Blood Urea Nitrogen 20 mg/dL (7-20) Creatinine 0.6 mg/dL (0.6-1.0) Estimated GFR (Cockcroft-Gault) 106.3 Glucose Level 137 mg/dL (70-99) Calcium Level 8.8 mg/dL (8.5-10.1) Magnesium Level 1.7 mg/dL (1.8-2.4) Test 10/06/19 08:04 10/06/19 11:45 10/06/19 17:31 10/07/19 01:26 O2 Saturation 98 % (92-99) Arterial Blood pH 7.49 (7.35-7.45) Arterial Blood pCO2 at Patient Temp 28 mmHg (35-46) Arterial Blood pO2 at Patient Temp 116 mmHg (75-108) Arterial Blood HCO3 21 mmol/L (21-28) Arterial Blood Base Excess -2 mmol/L (-3-3) FiO2 35% Glucose (Fingerstick) 148 mg/dL (70-99) 135 mg/dL (70-99) 116 mg/dL (70-99) Test 10/07/19 06:20 10/07/19 06:30 White Blood Count 8.9 x10^3/uL (4.0-11.0) Red Blood Count 2.93 x10^6/uL (3.50-5.40) Hemoglobin 8.2 g/dL (12.0-15.5) Hematocrit 24.9 % (36.0-47.0) Mean Corpuscular Volume 85 fL (79-100) Mean Corpuscular Hemoglobin 28 pg (25-35) Mean Corpuscular Hemoglobin Concent 33 g/dL (31-37) Red Cell Distribution Width 18.2 % (11.5-14.5) Platelet Count 452 x10^3/uL (140-400) Neutrophils (%) (Auto) 77 % (31-73) Lymphocytes (%) (Auto) 15 % (24-48) Monocytes (%) (Auto) 7 % (0-9) Eosinophils (%) (Auto) 1 % (0-3) Basophils (%) (Auto) 0 % (0-3) Neutrophils # (Auto) 6.8 x10^3/uL (1.8-7.7) Lymphocytes # (Auto) 1.3 x10^3/uL (1.0-4.8) Monocytes # (Auto) 0.6 x10^3/uL (0.0-1.1) Eosinophils # (Auto) 0.1 x10^3/uL (0.0-0.7) Basophils # (Auto) 0.0 x10^3/uL (0.0-0.2) Sodium Level 137 mmol/L (136-145) Potassium Level 3.9 mmol/L (3.5-5.1) Chloride Level 105 mmol/L (98-107) Carbon Dioxide Level 26 mmol/L (21-32) Anion Gap 6 (6-14) Blood Urea Nitrogen 18 mg/dL (7-20) Creatinine 0.6 mg/dL (0.6-1.0) Estimated GFR (Cockcroft-Gault) 106.3 BUN/Creatinine Ratio 30 (6-20) Glucose Level 109 mg/dL (70-99) Calcium Level 9.3 mg/dL (8.5-10.1) Magnesium Level 1.9 mg/dL (1.8-2.4) Total Bilirubin 0.6 mg/dL (0.2-1.0) Aspartate Amino Transf (AST/SGOT) 17 U/L (15-37) Alanine Aminotransferase (ALT/SGPT) 18 U/L (14-59) Alkaline Phosphatase 92 U/L (46-116) Total Protein 4.4 g/dL (6.4-8.2) Albumin 1.2 g/dL (3.4-5.0) Albumin/Globulin Ratio 0.4 (1.0-1.7) Glucose (Fingerstick) 102 mg/dL (70-99) Laboratory Tests Test 10/06/19 11:45 10/06/19 17:31 10/07/19 01:26 10/07/19 06:20 Glucose (Fingerstick) 148 mg/dL (70-99) 135 mg/dL (70-99) 116 mg/dL (70-99) White Blood Count 8.9 x10^3/uL (4.0-11.0) Red Blood Count 2.93 x10^6/uL (3.50-5.40) Hemoglobin 8.2 g/dL (12.0-15.5) Hematocrit 24.9 % (36.0-47.0) Mean Corpuscular Volume 85 fL (79-100) Mean Corpuscular Hemoglobin 28 pg (25-35) Mean Corpuscular Hemoglobin Concent 33 g/dL (31-37) Red Cell Distribution Width 18.2 % (11.5-14.5) Platelet Count 452 x10^3/uL (140-400) Neutrophils (%) (Auto) 77 % (31-73) Lymphocytes (%) (Auto) 15 % (24-48) Monocytes (%) (Auto) 7 % (0-9) Eosinophils (%) (Auto) 1 % (0-3) Basophils (%) (Auto) 0 % (0-3) Neutrophils # (Auto) 6.8 x10^3/uL (1.8-7.7) Lymphocytes # (Auto) 1.3 x10^3/uL (1.0-4.8) Monocytes # (Auto) 0.6 x10^3/uL (0.0-1.1) Eosinophils # (Auto) 0.1 x10^3/uL (0.0-0.7) Basophils # (Auto) 0.0 x10^3/uL (0.0-0.2) Sodium Level 137 mmol/L (136-145) Potassium Level 3.9 mmol/L (3.5-5.1) Chloride Level 105 mmol/L (98-107) Carbon Dioxide Level 26 mmol/L (21-32) Anion Gap 6 (6-14) Blood Urea Nitrogen 18 mg/dL (7-20) Creatinine 0.6 mg/dL (0.6-1.0) Estimated GFR (Cockcroft-Gault) 106.3 BUN/Creatinine Ratio 30 (6-20) Glucose Level 109 mg/dL (70-99) Calcium Level 9.3 mg/dL (8.5-10.1) Magnesium Level 1.9 mg/dL (1.8-2.4) Total Bilirubin 0.6 mg/dL (0.2-1.0) Aspartate Amino Transf (AST/SGOT) 17 U/L (15-37) Alanine Aminotransferase (ALT/SGPT) 18 U/L (14-59) Alkaline Phosphatase 92 U/L (46-116) Total Protein 4.4 g/dL (6.4-8.2) Albumin 1.2 g/dL (3.4-5.0) Albumin/Globulin Ratio 0.4 (1.0-1.7) Test 10/07/19 06:30 Glucose (Fingerstick) 102 mg/dL (70-99) Medications Active Scripts Medications Dose Route/Sig Max Daily Dose Days Date Category Bisoprolol Fumarate 5 Mg Tablet 10 Mg PO DAILY 07/04/19 Reported Comments CXR improved right effusion/ atelectasis ct abdomen /pelvis 09/23 1. Removal of the percutaneous pigtail drainage catheters since the prior exam. Sequela of pancreatitis with extensive pseudocysts again demonstrated, the right-sided collections are slightly larger since the prior exam, the left-sided collections are stable. See above. 2. Moderate to large left pleural effusion with atelectasis and collapse of most of the left lower lobe, stable. Small right pleural effusion is stable. 3. Gallstone. ct chest 10/02 reviewed Impression . IMPRESSION: 1. Acute hypoxemic respiratory failure secondary to ARDS status post trach, developed anemia 09/24, blood drainage from RLQ abdomen drain site, and surrounding firmness / developed septic shock 09/24 from abdomen source, required levo 09/24 s/p 3 new drains 09/24 with brown color drainage, back on vent 09/30, on/off vent 2. Gallstone pancreatitis, now with ongoing bleeding from prior drain. Anemic. s/p Tx multiple units over several days 3. septic shock/sepsis, recurrent 09/24, source abdomen. , off levo now, 4. Acute kidney injury-, Off HD--renal function decling. suspect JUANA on CKD due to hypotension , improved now 5. Acute gallstone pancreatitis. 6. Hypoalbuminemia. 7. Moderate persistent effusions, s/p left thora 08/29, reaccumulation of left effusion. O2 requirement not changed. 8. Fever- ,hypotension. suspect recurrent sepsis/ likely pancreatic source. Per ID, per surgery-- 9. Chronic anemia-- ongoing / s/p PRBC 10. Covid 19 testing negative 11. Moderate to large ascites-S/P paracentisis 12.S/P paracentisis with 4 liters removed on 08/03/19 13. S/P IR drain placement on 08/26/2019, removal, re inserted 09/24 14. Depression/Anxiety 15. Increase left effusion, ? loculated/ s/p left chest tube.. drainage slowing down. 150 cc /24 hr Plan . 1. TS 24 hrs titrate fio2 to keep sat 94%, 2. Follow all cultures/ PSA from pelvic drains. Abx per ID/ thoracentesis result transudate, await c/s, 3. Follow surgery recs-- Acute pancreatitis with persistent necrosis ---- 08/14 status post KAYLIN drain placement + C paropsilosis; 08/23 + yeast & high amylase; s/p additional drains on 08/25, removal of drains and now increase pseudocyst and increase fluid collection. likely infected fluid/ sepsis. on BS abx.follow surgery rec, planning surgical intervention next few weeks 4. Follow ID recs for ABX---- 5. Follow nephrology recs ----- 6. Continue TPN 7. monitor HGB, 4 units since 09/23--monitor HGB transfuse if less than 8.5 8 s/p thoracentesis, 08/29, 3 litres removed, 10/02. 800 cc so far. Monitor chest tube 9. Pt remains critically ill from severe necrotic pancreatis. Even with surgery prognosis grim. Surgery informed family. 10. lasix/albumin today DVT/GI PPX: protonix--- holding lovenox 2/2 anemia PT/OT D/W RN, rt and d/w ID critically ill cc time 30 min no overlap VINAYAK LANDRUM MD Oct 07, 2019 10:47
[2019-10-07] MEDS: TPN PER PHARMACY MC PRN (10:54)
--- NOTE | 2019-10-07 10:54 | NUR ---
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, 8 inches Weight: 89.8 kg Current diet: NPO LABS: Sodium: 137 Potassium: 3.9 Chloride: 105 Calcium: 9.3 Corrected Calcium: 11.54 Magnesium: 1.9 CO2: 26 SCr: 0.6 Glucose: 102-116 Albumin: 1.2 AST: 17 ALT: 18 TPN FORMULA: TPN TYPE: Central Continuous AMINO ACIDS: 80 gm DEXTROSE: 250 gm LIPIDS: 20 gm POTASSIUM ACETATE: 60 mEq MAGNESIUM: 14 mEq INSULIN: 15 units MULTIPLE VITAMIN: 10 ml TRACE ELEMENTS: 1 ml(s) TPN PLAN: Magnesium normalized. All other electrolytes WNL. BG below goal of 140-180 for ICU patients. Will lower insulin in TPN to 15 units. -No labs ordered for AM due to patient stability. R: Change TPN as noted above. Will monitor electrolytes, glucose, and tolerance to TPN. MIKAYLA CHU RPH, 10/07/19 [id number]
[2019-10-07] MEDS ORDERED: ALBUMIN HUMAN 5% 250 ML IV ONE (11:00)
[2019-10-07] MEDS: MICAFUNGIN 100 MG in IV DEXTROSE 5% 100ML 100 ML IV SCH (11:10)
--- NOTE | 2019-10-07 11:40 | NUR ---
SS following up with discharge planning. SS reviewed pt chart and discussed with pt RN. Per RN, pt had some fevers yesterday and blood cultures pending. Pt on TPN, IV Meropenem, Micafungin, and Ciprofloxacin. Pt has chest tube and drains x3. Pt has trach shield during the day and vent at night. Pt remains Full Code. SS will continue to follow for discharge planning.
[2019-10-07] MEDS: FUROSEMIDE 20 MG/2 ML VIAL. IVP ONE ×2 (12:26→14:52)
--- NOTE | 2019-10-07 13:15 | PDOC ---
Objective: Objective: D/w nurse - drainage around drains and from previous drain site, green emesis last night, c/o nausea about every 8 hours - scant amount with NG to suction. Note plans for hematology consult. Vital Signs: Vital Signs Date Time Temp Pulse Resp B/P (MAP) Pulse Ox O2 Delivery O2 Flow Rate FiO2 10/07/19 12:29 22 98 Tracheal Collar 10/07/19 12:00 98.3 111 95/49 (64) 98.3 10/07/19 12:00 9.0 Labs: Laboratory Tests Test 10/06/19 17:31 10/07/19 01:26 10/07/19 06:20 10/07/19 06:30 Glucose (Fingerstick) 135 mg/dL 116 mg/dL 102 mg/dL White Blood Count 8.9 x10^3/uL Red Blood Count 2.93 x10^6/uL Hemoglobin 8.2 g/dL Hematocrit 24.9 % Mean Corpuscular Volume 85 fL Mean Corpuscular Hemoglobin 28 pg Mean Corpuscular Hemoglobin Concent 33 g/dL Red Cell Distribution Width 18.2 % Platelet Count 452 x10^3/uL Neutrophils (%) (Auto) 77 % Lymphocytes (%) (Auto) 15 % Monocytes (%) (Auto) 7 % Eosinophils (%) (Auto) 1 % Basophils (%) (Auto) 0 % Neutrophils # (Auto) 6.8 x10^3/uL Lymphocytes # (Auto) 1.3 x10^3/uL Monocytes # (Auto) 0.6 x10^3/uL Eosinophils # (Auto) 0.1 x10^3/uL Basophils # (Auto) 0.0 x10^3/uL Sodium Level 137 mmol/L Potassium Level 3.9 mmol/L Chloride Level 105 mmol/L Carbon Dioxide Level 26 mmol/L Anion Gap 6 Blood Urea Nitrogen 18 mg/dL Creatinine 0.6 mg/dL Estimated GFR (Cockcroft-Gault) 106.3 BUN/Creatinine Ratio 30 Glucose Level 109 mg/dL Calcium Level 9.3 mg/dL Magnesium Level 1.9 mg/dL Total Bilirubin 0.6 mg/dL Aspartate Amino Transf (AST/SGOT) 17 U/L Alanine Aminotransferase (ALT/SGPT) 18 U/L Alkaline Phosphatase 92 U/L Total Protein 4.4 g/dL Albumin 1.2 g/dL Albumin/Globulin Ratio 0.4 Test 10/07/19 12:25 Glucose (Fingerstick) 185 mg/dL PE: GEN: NAD NEURO/PSYCH: sleeping, not awakened A/P: Complicated pancreatitis -- Continue support. Justicifation of Admission Dx: Justifications for Admission: Justification of Admission Dx: Yes CYNDEE FALCON Oct 07, 2019 13:15
--- NOTE | 2019-10-07 15:01 | PDOC2 ---
DENNIS STYLES J[employer] DEVELOPER CONSULTANT 10/07/19 1501: CARDIAC CONSULT DATE OF CONSULT Date of Consult DATE: 10/07/19 TIME: 14:16 REASON FOR CONSULT Reason for Consult: Tachycardia, possible CHF REFERRING PHYSICIAN Referring Physician: Fullbright SOURCE Source: Chart review, Patient HISTORY OF PRESENT ILLNESS HISTORY OF PRESENT ILLNESS This is a 39 yo female admitted initially for complains of abdominal pain. She was admitted in 07/04/2019 and has been here since. She has had multiorgan failure notable for JUANA warranting HD and respiratory failure eventually warranting trach placement associated with severe gallstone pancreatitis with necrosis with laparoscopic exploration. She is anasarcic and also has had multiple thoracentesis and currently has chest tube with still good amount of output and also has had paracentesis. She has had severe anemia with multiple transfusion. Presently she is sitting up and denies any chest pain or SOA. NGT in place, Trach via trach shield and has chest tube. She has good UOP. Consult is for tachycardia and CHF. Her renal function is adequate with good UOP. BP is low marginal but stable. Sinus tach but no significant arrhythmias. PAST MEDICAL HISTORY Cardiovascular: HTN, Hyperlipidemia GI: GERD Renal/: UTI Endocrine: Diabetes PAST SURGICAL HISTORY Past Surgical History: Other (recent abdominal surgery) FAMILY HISTORY Family History noncontributory to CV SOCIAL HISTORY Smoke: No ALCOHOL: none Drugs: None CURRENT MEDICATIONS CURRENT MEDICATIONS Current Medications Medications (Trade) Dose Ordered Sig/Yvon Route PRN Reason Start Time Stop Time Status Last Admin Dose Admin Potassium Acetate 60 meq/Magnesium Sulfate 14 meq/ Multivitamins 10 ml/Chromium/ Copper/Manganese/ Seleni/Zn 1 ml/ Insulin Human Regular 20 unit/ Total Parenteral Nutrition/Amino Acids/Dextrose/ Fat Emulsion Intravenous 1,920 ml @ 80 mls/hr TPN CONT IV 10/06/19 22:00 10/07/19 21:59 10/06/19 22:26 Ciprofloxacin/ Dextrose 200 ml @ 200 mls/hr Q12HR IV 10/06/19 21:00 10/07/19 09:50 Albumin Human 250 ml @ 62.5 mls/hr 1X ONCE IV 10/07/19 11:00 10/07/19 14:59 10/07/19 11:09 ALLERGIES ALLERGIES: Coded Allergies: codeine (Verified Allergy, Intermediate, rash, 3/16/20) ROS Review of System limited, nonverbal PHYSICAL EXAM General: Alert, Cooperative, No acute distress HEENT: Atraumatic, Mucous membr. moist/pink Lungs: Other (diminished bases, trach with trach shield, chest tube in place with serous fluid) Heart: Regular rate (SR/ST), Other (distant heart sounds) Abdomen: Soft, Other (NGT in place, anasarcic) Extremities: No cyanosis, Other (3+ bilateral LE pitting edema) Skin: No rashes, No significant lesion Neuro: Other (nonverbal due to trach) Psych/Mental Status: Other (flat affect) MUSCULOSKELETAL: No joint tenderness VITALS/I&O VITALS/I&O: Vital Signs Date Time Temp Pulse Resp B/P (MAP) Pulse Ox O2 Delivery O2 Flow Rate FiO2 10/07/19 12:29 22 98 Tracheal Collar 10/07/19 12:00 98.3 111 95/49 (64) 98.3 10/07/19 12:00 9.0 I & O 10/06/19 10/06/19 10/07/19 15:00 23:00 07:00 Intake Total 846.85 ml 2254.43 ml 570 ml Output Total 535 ml 690 ml 1065 ml Balance 311.85 ml 1564.43 ml -495 ml LABS Lab: Laboratory Tests Test 10/06/19 17:31 10/07/19 01:26 10/07/19 06:20 10/07/19 06:30 Glucose (Fingerstick) 135 mg/dL (70-99) H 116 mg/dL (70-99) H 102 mg/dL (70-99) H White Blood Count 8.9 x10^3/uL (4.0-11.0) Red Blood Count 2.94 x10^6/uL (3.50-5.70) L Hemoglobin 8.2 g/dL (12.0-15.5) L Hematocrit 24.9 % (36.0-47.0) L Mean Corpuscular Volume 85 fL (79-100) Mean Corpuscular Hemoglobin 28 pg (25-35) Mean Corpuscular Hemoglobin Concent 33 g/dL (31-37) Red Cell Distribution Width 18.2 % (11.5-14.5) H Platelet Count 452 x10^3/uL (140-400) H Neutrophils (%) (Auto) 77 % (31-73) H Lymphocytes (%) (Auto) 15 % (24-48) L Monocytes (%) (Auto) 7 % (0-9) Eosinophils (%) (Auto) 1 % (0-3) Basophils (%) (Auto) 0 % (0-3) Neutrophils # (Auto) 6.8 x10^3/uL (1.8-7.7) Lymphocytes # (Auto) 1.3 x10^3/uL (1.0-4.8) Monocytes # (Auto) 0.6 x10^3/uL (0.0-1.1) Eosinophils # (Auto) 0.1 x10^3/uL (0.0-0.7) Basophils # (Auto) 0.0 x10^3/uL (0.0-0.2) Absolute Reticulocyte Count 0.120 x10^6/uL (0.020-0.120) Percent Reticulocyte Count 4.1 % (0.5-2.3) H Immature Reticulocyte Fraction 0.26 (0.20-0.60) Sodium Level 137 mmol/L (136-145) Potassium Level 3.9 mmol/L (3.5-5.1) Chloride Level 105 mmol/L (98-107) Carbon Dioxide Level 26 mmol/L (21-32) Anion Gap 6 (6-14) Blood Urea Nitrogen 18 mg/dL (7-20) Creatinine 0.6 mg/dL (0.6-1.0) Estimated GFR (Cockcroft-Gault) 106.3 BUN/Creatinine Ratio 30 (6-20) H Glucose Level 109 mg/dL (70-99) H Calcium Level 9.3 mg/dL (8.5-10.1) Magnesium Level 1.9 mg/dL (1.8-2.4) Total Bilirubin 0.6 mg/dL (0.2-1.0) Aspartate Amino Transferase (AST) 17 U/L (15-37) Alanine Aminotransferase (ALT) 18 U/L (14-59) Alkaline Phosphatase 92 U/L (46-116) Total Protein 4.4 g/dL (6.4-8.2) L Albumin 1.2 g/dL (3.4-5.0) L Albumin/Globulin Ratio 0.4 (1.0-1.7) L Test 10/07/19 12:25 Glucose (Fingerstick) 185 mg/dL (70-99) H Laboratory Tests 10/07/19 06:20 Laboratory Tests 10/07/19 06:20 ASSESSMENT/PLAN ASSESSMENT/PLAN 1. Severe acute gallstone pancreatitis with necrosis 2. Acute respiratory failure: presently has trach and chest tube. no SOA 3. Anasarca with severe protein malnutrition 4. Sepsis with MDRO: off pressor. BP low marginal but stable, not requiring pressors 5. Acute diastolic CHF: multifactorial as above. No SOA. 6. Normocytic anemia: Hgb stable at the 8s post multiple transfusion 7. Reactive sinus tachycardia: 100-120 with multiple culprits above 8. Severe JUANA requiring HD: last dialysis about a month ago Recommendations 1. Continue current regimen. Lasix PRN, TPN, albumin repletion 2. Lopressor PRN if BP allows for sustained SVTs. 3. Agree with TTE Supportive care DEREJE PRESLEY MD 10/09/19 1621: CARDIAC CONSULT ASSESSMENT/PLAN ASSESSMENT/PLAN Late entry for 10/07/2019 Pt. seen and examined. Agree with above [employer] note. Supportive care. Thanks DENNIS STYLES APRN Oct 07, 2019 15:01 DEREJE PRESLEY MD Oct 09, 2019 16:21
[2019-10-07] MEDS ORDERED: [UNRECOGNIZED DRUG - OTHER] IV SCH ×8 (22:00)
[2019-10-07] MEDS ORDERED: AMINO ACID IV SCH ×8 (22:00)
[2019-10-07] MEDS ORDERED: DEXTROSE 70% IV SCH ×8 (22:00)
[2019-10-07] MEDS ORDERED: TOTAL PARENTERAL NUTRITION IV SCH ×8 (22:00)
[2019-10-08] VITALS (22 sets, daily range): BP systolic 87–141; BP diastolic 9–81
[2019-10-08] MEDS: IPRATRPIUM/ALBUTEROL 0.5/2.5MG 3 ML NEBU. NEB SCH ×5 (00:03→20:00)
[2019-10-08] MEDS: PROPOFOL 100 ML IV PRN ×2 (00:12→23:50)
[2019-10-08] MEDS: PROCHLORPERAZINE 10 MG/2 ML VIAL. IV PRN ×2 (00:13→23:50)
[2019-10-08] MEDS: INSULIN LISPRO 300 UNITS/3 ML VIAL. SQ SCH ×5 (05:55→23:59)
[2019-10-08 06:34] LABS: BASO % 0 % (0-3); EOS # 0.1 x10^3/uL (0.0-0.7); EOS % 2 % (0-3); HEMATOCRIT 23.6 % (36.0-47.0); HEMOGLOBIN 7.8 g/dL (12.0-15.5); LYMPH # 1.2 x10^3/uL (1.0-4.8); LYMPH % 16 % (24-48); MEAN CORPUSCULAR HEMOGLOBIN 28 pg (25-35); MEAN CORPUSCULAR HGB CONC 33 g/dL (31-37); MEAN CORPUSCULAR VOLUME 85 fL (79-100); MONO # 0.7 x10^3/uL (0.0-1.1); MONO % 9 % (0-9); NEUT # 5.6 x10^3/uL (1.8-7.7); NEUT % 74 % (31-73); PLATELET COUNT 479 x10^3/uL (140-400); RED BLOOD COUNT 2.76 x10^6/uL (3.50-5.40); RED CELL DISTRIBUTION WIDTH 18.2 % (11.5-14.5); WHITE BLOOD COUNT 7.7 x10^3/uL (4.0-11.0)
[2019-10-08 06:43] LABS: ALBUMIN 1.1 g/dL (3.4-5.0); ALBUMIN/GLOBULIN RATIO 0.3 (1.0-1.7); CALCIUM 9.4 mg/dL (8.5-10.1); CREATININE 0.6 mg/dL (0.6-1.0); GFR 106.3; POTASSIUM 3.8 mmol/L (3.5-5.1); TOTAL BILIRUBIN 0.4 mg/dL (0.2-1.0); TOTAL PROTEIN 4.4 g/dL (6.4-8.2)
--- NOTE | 2019-10-08 08:01 | PDOC ---
PULMONARY PROGRESS NOTES Subjective on vent overnight, off vent during day/ , no distress, denies sob Patient intubated on 07/10 , s/p trach 07/24, transferred back to ICU 09/22 for syncope with collapse developed anemia, blood drainage from RLQ abdomen drain site, and surrounding firmness / developed septic shock 09/24 from abdomen source, required levo 09/24 s/p 3 new drains 09/24 with brown color drainage/ oozing fluid around drains Vitals Vital Signs Date Time Temp Pulse Resp B/P (MAP) Pulse Ox O2 Delivery O2 Flow Rate FiO2 10/08/19 06:00 108 22 89/59 (69) 99 Ventilator 10/08/19 03:00 100.1 100.1 10/07/19 20:09 8.0 Comments awake,no soa General: Alert, No acute distress HEENT: Other (nc at perrl nose clear neck trach site ok no lab no thyromegaly) Lungs: Other (diminshed in bases, Rhonci in LLL) Cardiovascular: S1, S2 Abdomen: Soft, Non-tender, Other (bleeding from Sx. site RLQ and firmness) Extremities: Other (+1 BLE edema) Skin: Warm, Dry Labs Laboratory Tests Test 10/06/19 08:04 10/06/19 11:45 10/06/19 17:31 10/07/19 01:26 O2 Saturation 98 % (92-99) Arterial Blood pH 7.49 (7.35-7.45) Arterial Blood pCO2 at Patient Temp 28 mmHg (35-46) Arterial Blood pO2 at Patient Temp 116 mmHg (75-108) Arterial Blood HCO3 21 mmol/L (21-28) Arterial Blood Base Excess -2 mmol/L (-3-3) FiO2 35% Glucose (Fingerstick) 148 mg/dL (70-99) 135 mg/dL (70-99) 116 mg/dL (70-99) Test 10/07/19 06:20 10/07/19 06:30 10/07/19 12:25 10/07/19 14:43 White Blood Count 8.9 x10^3/uL (4.0-11.0) Red Blood Count 2.94 x10^6/uL (3.50-5.70) Hemoglobin 8.2 g/dL (12.0-15.5) Hematocrit 24.9 % (36.0-47.0) Mean Corpuscular Volume 85 fL (79-100) Mean Corpuscular Hemoglobin 28 pg (25-35) Mean Corpuscular Hemoglobin Concent 33 g/dL (31-37) Red Cell Distribution Width 18.2 % (11.5-14.5) Platelet Count 452 x10^3/uL (140-400) Neutrophils (%) (Auto) 77 % (31-73) Lymphocytes (%) (Auto) 15 % (24-48) Monocytes (%) (Auto) 7 % (0-9) Eosinophils (%) (Auto) 1 % (0-3) Basophils (%) (Auto) 0 % (0-3) Neutrophils # (Auto) 6.8 x10^3/uL (1.8-7.7) Lymphocytes # (Auto) 1.3 x10^3/uL (1.0-4.8) Monocytes # (Auto) 0.6 x10^3/uL (0.0-1.1) Eosinophils # (Auto) 0.1 x10^3/uL (0.0-0.7) Basophils # (Auto) 0.0 x10^3/uL (0.0-0.2) Absolute Reticulocyte Count 0.120 x10^6/uL (0.020-0.120) Percent Reticulocyte Count 4.1 % (0.5-2.3) Immature Reticulocyte Fraction 0.26 (0.20-0.60) Sodium Level 137 mmol/L (136-145) Potassium Level 3.9 mmol/L (3.5-5.1) Chloride Level 105 mmol/L (98-107) Carbon Dioxide Level 26 mmol/L (21-32) Anion Gap 6 (6-14) Blood Urea Nitrogen 18 mg/dL (7-20) Creatinine 0.6 mg/dL (0.6-1.0) Estimated GFR (Cockcroft-Gault) 106.3 BUN/Creatinine Ratio 30 (6-20) Glucose Level 109 mg/dL (70-99) Calcium Level 9.3 mg/dL (8.5-10.1) Magnesium Level 1.9 mg/dL (1.8-2.4) Total Bilirubin 0.6 mg/dL (0.2-1.0) Aspartate Amino Transf (AST/SGOT) 17 U/L (15-37) Alanine Aminotransferase (ALT/SGPT) 18 U/L (14-59) Alkaline Phosphatase 92 U/L (46-116) Total Protein 4.4 g/dL (6.4-8.2) Albumin 1.2 g/dL (3.4-5.0) Albumin/Globulin Ratio 0.4 (1.0-1.7) Thyroid Stimulating Hormone (TSH) 1.237 uIU/mL (0.358-3.74) Glucose (Fingerstick) 102 mg/dL (70-99) 185 mg/dL (70-99) Ionized Calcium 1.50 mmol/L (1.13-1.32) Iron Level 8 ug/dL (50-170) Total Iron Binding Capacity 56 ug/dL (250-450) Iron Saturation 14 % (15-34) Test 10/07/19 23:40 10/08/19 05:50 10/08/19 05:55 Glucose (Fingerstick) 147 mg/dL (70-99) 131 mg/dL (70-99) White Blood Count 7.7 x10^3/uL (4.0-11.0) Red Blood Count 2.76 x10^6/uL (3.50-5.40) Hemoglobin 7.8 g/dL (12.0-15.5) Hematocrit 23.6 % (36.0-47.0) Mean Corpuscular Volume 85 fL (79-100) Mean Corpuscular Hemoglobin 28 pg (25-35) Mean Corpuscular Hemoglobin Concent 33 g/dL (31-37) Red Cell Distribution Width 18.2 % (11.5-14.5) Platelet Count 479 x10^3/uL (140-400) Neutrophils (%) (Auto) 74 % (31-73) Lymphocytes (%) (Auto) 16 % (24-48) Monocytes (%) (Auto) 9 % (0-9) Eosinophils (%) (Auto) 2 % (0-3) Basophils (%) (Auto) 0 % (0-3) Neutrophils # (Auto) 5.6 x10^3/uL (1.8-7.7) Lymphocytes # (Auto) 1.2 x10^3/uL (1.0-4.8) Monocytes # (Auto) 0.7 x10^3/uL (0.0-1.1) Eosinophils # (Auto) 0.1 x10^3/uL (0.0-0.7) Basophils # (Auto) 0.0 x10^3/uL (0.0-0.2) Sodium Level 137 mmol/L (136-145) Potassium Level 3.8 mmol/L (3.5-5.1) Chloride Level 103 mmol/L (98-107) Carbon Dioxide Level 28 mmol/L (21-32) Anion Gap 6 (6-14) Blood Urea Nitrogen 17 mg/dL (7-20) Creatinine 0.6 mg/dL (0.6-1.0) Estimated GFR (Cockcroft-Gault) 106.3 BUN/Creatinine Ratio 28 (6-20) Glucose Level 134 mg/dL (70-99) Calcium Level 9.4 mg/dL (8.5-10.1) Total Bilirubin 0.4 mg/dL (0.2-1.0) Aspartate Amino Transf (AST/SGOT) 17 U/L (15-37) Alanine Aminotransferase (ALT/SGPT) 18 U/L (14-59) Alkaline Phosphatase 101 U/L (46-116) Total Protein 4.4 g/dL (6.4-8.2) Albumin 1.1 g/dL (3.4-5.0) Albumin/Globulin Ratio 0.3 (1.0-1.7) Laboratory Tests Test 10/07/19 12:25 10/07/19 14:43 10/07/19 23:40 10/08/19 05:50 Glucose (Fingerstick) 185 mg/dL (70-99) 147 mg/dL (70-99) Ionized Calcium 1.50 mmol/L (1.13-1.32) Iron Level 8 ug/dL (50-170) Total Iron Binding Capacity 56 ug/dL (250-450) Iron Saturation 14 % (15-34) White Blood Count 7.7 x10^3/uL (4.0-11.0) Red Blood Count 2.76 x10^6/uL (3.50-5.40) Hemoglobin 7.8 g/dL (12.0-15.5) Hematocrit 23.6 % (36.0-47.0) Mean Corpuscular Volume 85 fL (79-100) Mean Corpuscular Hemoglobin 28 pg (25-35) Mean Corpuscular Hemoglobin Concent 33 g/dL (31-37) Red Cell Distribution Width 18.2 % (11.5-14.5) Platelet Count 479 x10^3/uL (140-400) Neutrophils (%) (Auto) 74 % (31-73) Lymphocytes (%) (Auto) 16 % (24-48) Monocytes (%) (Auto) 9 % (0-9) Eosinophils (%) (Auto) 2 % (0-3) Basophils (%) (Auto) 0 % (0-3) Neutrophils # (Auto) 5.6 x10^3/uL (1.8-7.7) Lymphocytes # (Auto) 1.2 x10^3/uL (1.0-4.8) Monocytes # (Auto) 0.7 x10^3/uL (0.0-1.1) Eosinophils # (Auto) 0.1 x10^3/uL (0.0-0.7) Basophils # (Auto) 0.0 x10^3/uL (0.0-0.2) Sodium Level 137 mmol/L (136-145) Potassium Level 3.8 mmol/L (3.5-5.1) Chloride Level 103 mmol/L (98-107) Carbon Dioxide Level 28 mmol/L (21-32) Anion Gap 6 (6-14) Blood Urea Nitrogen 17 mg/dL (7-20) Creatinine 0.6 mg/dL (0.6-1.0) Estimated GFR (Cockcroft-Gault) 106.3 BUN/Creatinine Ratio 28 (6-20) Glucose Level 134 mg/dL (70-99) Calcium Level 9.4 mg/dL (8.5-10.1) Total Bilirubin 0.4 mg/dL (0.2-1.0) Aspartate Amino Transf (AST/SGOT) 17 U/L (15-37) Alanine Aminotransferase (ALT/SGPT) 18 U/L (14-59) Alkaline Phosphatase 101 U/L (46-116) Total Protein 4.4 g/dL (6.4-8.2) Albumin 1.1 g/dL (3.4-5.0) Albumin/Globulin Ratio 0.3 (1.0-1.7) Test 10/08/19 05:55 Glucose (Fingerstick) 131 mg/dL (70-99) Medications Active Scripts Medications Dose Route/Sig Max Daily Dose Days Date Category Bisoprolol Fumarate 5 Mg Tablet 10 Mg PO DAILY 07/04/19 Reported Comments CXR improved right effusion/ atelectasis ct abdomen /pelvis 09/23 1. Removal of the percutaneous pigtail drainage catheters since the prior exam. Sequela of pancreatitis with extensive pseudocysts again demonstrated, the right-sided collections are slightly larger since the prior exam, the left-sided collections are stable. See above. 2. Moderate to large left pleural effusion with atelectasis and collapse of most of the left lower lobe, stable. Small right pleural effusion is stable. 3. Gallstone. ct chest 10/02 reviewed Impression . IMPRESSION: 1. Acute hypoxemic respiratory failure secondary to ARDS status post trach, developed anemia 09/24, blood drainage from RLQ abdomen drain site, and surrounding firmness / developed septic shock 09/24 from abdomen source, required levo 09/24 s/p 3 new drains 09/24 with brown color drainage, back on vent 09/30, on/off vent 2. Gallstone pancreatitis, now with ongoing bleeding from prior drain. Anemic. s/p Tx multiple units over several days 3. septic shock/sepsis, recurrent 09/24, source abdomen. , off levo now, 4. Acute kidney injury-, Off HD--renal function decling. suspect JUANA on CKD due to hypotension , improved now 5. Acute gallstone pancreatitis. 6. Hypoalbuminemia. 7. Moderate persistent effusions, s/p left thora 08/29, reaccumulation of left effusion. O2 requirement not changed. 8. Fever- ,hypotension. suspect recurrent sepsis/ likely pancreatic source. Per ID, per surgery-- 9. Chronic anemia-- ongoing / s/p PRBC 10. Covid 19 testing negative 11. Moderate to large ascites-S/P paracentisis 12.S/P paracentisis with 4 liters removed on 08/03/19 13. S/P IR drain placement on 08/26/2019, removal, re inserted 09/24 14. Depression/Anxiety 15. Increase effusion, ? loculated/ s/p chest tube.. drainage slowing down. 190 cc /24 hr Plan . 1. TS as tolerated titrate fio2 to keep sat 94%, 2. Follow all cultures/ PSA from pelvic drains. Abx per ID/ thoracentesis result transudate, await c/s, 3. Follow surgery recs-- Acute pancreatitis with persistent necrosis ---- 08/14 status post KAYLIN drain placement + C paropsilosis; 08/23 + yeast & high amylase; s/p additional drains on 08/25, removal of drains and now increase pseudocyst and increase fluid collection. likely infected fluid/ sepsis. on BS abx.follow surgery rec, planning surgical intervention next few weeks 4. Follow ID recs for ABX---- 5. Follow nephrology recs ----- 6. Continue TPN 7. monitor HGB, 4 units since 09/23--monitor HGB transfuse if less than 8.5 8 s/p thoracentesis, 08/29, 3 litres removed, 10/02. 190 cc over the past 24 hrs, increase suction to -40 9. Pt remains critically ill from severe necrotic pancreatis. Even with surgery prognosis grim. Surgery informed family. 10. lasix/albumin prn DVT/GI PPX: protonix--- holding lovenox 2/2 anemia PT/OT D/W RN, rt and d/w TEN SHUKLA MD Oct 08, 2019 08:01
[2019-10-08] MEDS: PANTOPRAZOLE IV PUSH 40 MG VIAL. IVP SCH (08:35)
[2019-10-08] MEDS: MEROPENEM 1 GM in IV NORMAL SALINE 100ML 100 ML IV SCH ×2 (08:36→20:52)
[2019-10-08] MEDS: CIPROFLOXACIN 400MG PREMIX 200 ML IV SCH ×2 (08:37→20:52)
--- NOTE | 2019-10-08 08:38 | PDOC ---
PROGRESS NOTES Chief Complaint Chief Complaint impression History of Present Illness 48yo F w/ PMHx HTN, prediabetes who presented the emergency room complaints of abdominal pain. Patient described off and on 3 days. She states is constant, described as a squeezing sensation in a band-like distribution. + nausea, vomiting. She denies any fever or diarrhea. Patient denies any abdominal surgical procedures. She stateed is worse with movements, car ride. Pain initially was upper abdomen however now pretty much generalized. Last bowel movement was 07/03/2019. Nothing makes her pain better. Patient denies any shortness of breath. She does state the pain moves into her chest. Denies any headache or visual changes. Lipase 68448, AST 401, ALT 249, Bilirubin 1.4. CT abdomen confirms pancreatic inflammation, peripancreatic fluid and inflammatory changes around the pancreas consistent with pancreatitis. Cholelithiasis and 1.4cm uterine fibroid as well as possible left salpingitis. Admitted for further care Gallstone pancreatitis with necrosis. -CT A/P 09/23 showed multiple pseudocysts, slight larger on the right. s/p drains x , 09/24. + PSAE (MDRO-R Cefepime, Zosyn ALEXANDRA < 64) and yeast, -s/p drain 08/14. C. parapsilosis. s/p drain 08/23 + yeast & high amylase; s/p additional drain on 08/25. Drains removed. Ascites s/p paracentesis 08/02 & 08/23. C. parapsilosis JUANA. off HD. impression Acute hypoxic Respiratory failure required mechanical ventilation Tracheostomy bilateral pleural effusions/pulm edema s/p Throacentesis on 10/03/2019 Severe Acute gallstone pancreatitis (not a surgical candidate at this time) with necrosis Acute kidney failure now requiring dialysis Gallstones (Calculus of gallbladder with acute cholecystitis without obstruction) HTN Intractable pain Intractable nausea Covid 19 negative. Acute on chronic anemia EEG: No seizure activityFever - better currently - intermittent could be from underlying pancreatitis blood cults 08/21 - neg so far ? Ileus with vomiting Abd distention - U/S and CT reviewed s/p 0.4 L of opaque, debris-containing ascites was removed 08/23 Acute pancreatitis with persistent necrosis Gallstone pancreatitis with necrosis. -CT A/P 09/23 showed multiple pseudocysts, slight larger on the right. s/p drains x 3, 09/24. + PSAE (MDRO-R Cefepime, Zosyn ALEXANDRA < 64) and yeast, -s/p drain 08/14. C. parapsilosis. s/p drain 08/23 + yeast & high amylase; s/p additional drain on 08/25. Drains removed. Ascites s/p paracentesis 08/02 & 08/23. C. parapsilosis JUANA. off HD. A large fluid collection in the pancreatic bed has slightly decreased in size, described below, the pancreas itself is difficult to visualize, which could be due to necrosis or obscuration of pancreatic parenchyma from the surrounding fluid collection.10/02 - 08/14 status post KAYLIN drain placement + C paropsilosis. s/p additional drains 08/25 Anemia - S/p PRBCs Cholelithiasis with thickening of the gallbladder wall. Leucocytosis improving JUANA, hyperkalemia, Metabolic acidosis off dialysis hypocalcemia Prediabetes HTN s/p trach ESRD on HD Hyperglycemia severe protein-caloric malnutrition Moderate to large left pleural effusion with atelectasis and collapse of most of the left lower lobe, stable 10/05 FEVER 101, BLOOD CULTURE X 2 10/06 iv cipro added 10/07 vent fio2 35% FEN - PPX - SCDs, off lovenox currently, high risk for thrombosis but in light of her recent anemia and need for transfusion the risks do not outweigh benefits at this time. will continue to evaluate on a daily basis FULL CODE Dispo - ICU, critically ill BACK ON VENT 10/04 vent // no distress iv albumin 10/06 Continue meropenem, has MDRO PSAE September 24 Continue micafungin September 24 33 MIN CC TIME History of Present Illness History of Present Illness 09/25: IR placed drain on 09/24. 4u PRBC after Hb drop. Hb 8.8 today. Off Levophed this morning. T-max 100.3. Much more lethargic today. CXR with left sided diffus e infiltrates. 09/26: Tachycardic overnight into the 140s. NGT clamped. On BIPAP currently. Drains with serosanguinous discharge. WBC 8, Tmax 99.6F. 09/27: Seen on trach shield in ICU. Hypertensive and tachycardic. Labs stable. blood stained drainage from drains. Afebrile. 09/28: Seen on trach shield in ICU. She is a bit confused, drowsy, but when sitting up is conversational and confusion somewhat clears. She is asking for more pain medication. Stable drains, still very tachy.Na 147 09/29: Patient vomited overnight. Aspirated. Tried to pull her trach out, she was told she would without her trach, she said "I know, I just want to go home". Hb 7.6. Afebrile, still very tachycardic. 1055ml out of right sided KAYLIN drain 09/30: Overnight hypoxic, on BIPAP. CXR with left sided white out lung. Significant mucous plug suctioned by RT with improvement in her ABG after 2 hours this morning. Not really active, tired, lethargic. 890ml out of drains past 24 hours. On vent. D/w daughter bedside. 10/01: Still on vent overnight with copious pulmonary drainage on suctioning. Labs stable, UOP stable 1L. Drain output still significant with 1505mL. She has shown her phone password [id number] and made it clear she does not want her daughters to access her phone at this time. 6:15: Patient quite frail, she has had such a lengthy hospital stay that she is certainly depressed and as documented 3 days ago is wanting to go home. Most likely patient is also tired of being hospitalized with an end point no where in sight. Reassurance and encouragement provided during my visit. Plans for thoracentesis later in the day 10/03: No acute events reported overnight, case discussed with nursing staff patient in no acute distress, complaints of the abdomimal pain during my visit, patient is quite depressed, reassurance has been provided, discussed with nursing staff at bedside, replace electrolytes 10/04 off vent / on TS , no distress 10/07 Patient seen and examined ICU BED critically ill guardedlong-term prognosis Sputum from 09/30 - growing PSA - may be colonization I to Meropenem add Cipro Continue meropenem, has MDRP PSAE September 24 from abd cont micafungin September 24 bleeding from Sx. site RLQ and firmness) max 1003 oncology consulted 37 MIN CC TIME Date: Aug 15, 2019 Pre-Op Diagnosis: Necrotizing pancreatitis Post-Op Diagnosis: same Procedure Performed: laparoscopic exploration Surgeon: Renzo Servin Asst: Dr. Arturo Harris Anesthesia Type: GETA plus local Blood Loss: 50 Specimans Obtained: cultures, debris Findings: 1000 cc ascites suctioned off, cultures sent, diffuse debris, obliteration of surgical planes preventing any meaningful exploration 09/21/2019 Patient seen and examined in the ICU She remains critically ill We have been trying to hold off on her Ativan for the past 24 hours She is a little more awake but shaky and agitated and anxious seems depressed Discussed with RN Chart reviewed 09/20/2019 Patient seen and examined in the ICU She is a little more alert today but still quite ill Appears clammy and pale and depressed/anxious Discussed with RN Chart reviewed 09/19/2019 Patient seen and examined in the ICU She appears extremely ill She is tachypneic at 35 respirations per minute and tachycardic at 132 bpm She is extremely encephalopathic and shaky She appears clammy Chart reviewed Discussed with RN Prognosis extremely guarded at best 09/18/2019 Patient still in ICU Resting with no apparent distress Chart reviewed 09/17/2019 Patient seen and examined in the ICU She is wiping her face with a cough Discussed with RN Chart reviewed We hope to get her out of the ICU later today if possible 09/16/2019 Patient seen and examined in the ICU once again She is back on NG suction On IV Zosyn Has IV TPN Sedated with Precedex but anxious still Appears somewhat clammy and pale Chart reviewed Discussed with RN She remains critically ill BRIEF OPERATIVE NOTE Pre-Op Diagnosis Pancreatitis with pseudocysts, suspected infection Post-Op Diagnosis same Procedure Performed CT abdominal Drains x 3 Surgeon Tesfaye Anesthesia Type: Conscious Sedation Findings 3 abdominal drains, 14F, with turbid pancreatic fluid and necrotic debris in each. Complications No immediate 08/26: Patient today somewhat restless and having bilious secretions from ET tube, imaging studies ordered, discussed with databases software consultant. Pretty poor prognosis, hopefully is not a fistula, poor surgical candidate. 08/27: Imaging with no acute events, she seems more stable today compared to yesterday. Encouraged as much activity as possible patient at high risk for severe depression. Vitals Vitals Vital Signs Date Time Temp Pulse Resp B/P (MAP) Pulse Ox O2 Delivery O2 Flow Rate FiO2 10/08/19 06:00 108 22 89/59 (69) 99 Ventilator 10/08/19 03:00 100.1 100.1 10/07/19 20:09 8.0 Physical Exam Physical Exam GENERAL: More Alert and looks comfortable HEENT: NGT in place. Oral mucosa dry NECK: Tracheostomy LUNGS: Diminished aeration bases, no accessory muscle use - CT on left with clear fluid HEART: S1, S2, tachy, regular ABDOMEN: Mild distention, bowel sounds present, soft, grimaces to palpation Right lateral side drainage bag, 3 drains with bloodstained drainage. Left side with drainage from previous drain site - dressed - clean and dry bleeding from Sx. site RLQ and firmness) : Lind ( 09/24) EXTREMITIES: Trace edema .no cyanosis. Mild erythema on RUE - better SKIN: no signs of gen rash GUEST SERVICES ASSOCIATE: Alert and responsive LUE-PICC (09/15) without signs of complications - previous art line site without complications General: Alert, Cooperative, No acute distress Heart: Regular rate (SR/ST), Other (distant heart sounds) Lungs: Other (diminshed in bases, Rhonci in LLL) Abdomen: Soft, Other (NGT in place, anasarcic) Extremities: No cyanosis, Other (3+ bilateral LE pitting edema) Skin: No rashes, No significant lesion Labs LABS Labs LABS SEX: F EXAM STATUS: ADM IN ORD. PHYSICIAN: WILLY BARAKAT MD REASON: Pleural effusion and f/u abd abscesses PROCEDURE: CT CHEST ABDOMEN PELVIS WO EXAM: CT CHEST, ABDOMEN, AND PELVIS WITHOUT CONTRAST INDICATION: Pleural effusion and follow-up abdominal abscess COMPARISON: CT abdomen and pelvis 09/24/2019 and 09/14/2019. TECHNIQUE: Helical CT imaging performed of the chest, abdomen and pelvis without the use of intravenous contrast. Sagittal and coronal reformats were obtained. One or more of the following individualized dose reduction techniques were utilized for this examination: 1. Automated exposure control 2. Adjustment of the mA and/or kV according to patient size 3. Use of iterative reconstruction technique. FINDINGS: CHEST: Thyroid gland and thoracic inlet: Visualized portion of the thyroid gland is normal. Heart and great vessels: Heart is normal in size. No pericardial effusion. Thoracic aorta is normal in caliber. A left PICC terminates at the superior cavoatrial junction. Mediastinum and jair: No lymphadenopathy. A tracheostomy tube terminates at the level of the clavicular heads. A nasogastric tube terminates in the gastric fundus. Lungs and pleura: Slightly increased moderate to large left pleural effusion, predominantly layering with a small partially loculated component anterolaterally, and consolidation or atelectasis of the entire left lower lobe. Mild opacities in the left upper lobe. There is a small right pleural effusion with mild consolidative opacities, also mildly increased from prior exam. Chest wall and axillae: Bilateral breast implants are noted. No axillary lymphadenopathy. Bones: No acute osseous abnormality. ABDOMEN AND PELVIS: Liver: Liver is normal in size. A 1.2 cm hypodensity in the medial left hepatic lobe is unchanged. Gallbladder/Biliary Tree: Cholelithiasis is unchanged. No biliary duct dilatation. Pancreas: A large fluid collection in the pancreatic bed has slightly decreased in size, described below, the pancreas itself is difficult to visualize, which could be due to necrosis or obscuration of pancreatic parenchyma from the surrounding fluid collection. Evaluation is also limited due to lack of intravenous contrast. There is no gas within the pancreatic bed. Spleen: Grossly normal. Adrenal Glands: Normal. Kidneys/Ureters/Bladder: There is unchanged mild right hydronephrosis. No urolithiasis. Ureters not well visualized due to fluid collections. The left kidney is normal. Bladder is decompressed around a Lind catheter. Reproductive Organs: Uterus is anteverted. No adnexal mass. Stomach, small bowel, and colon: Nasogastric tube terminates in the gastric fundus. Stomach, small bowel, and colon are not well evaluated due to lack of IV and oral contrast and presence of multiple adjacent fluid collections. There is no evidence of bowel obstruction. Vasculature: Abdominal aorta is normal in caliber. Lymph Nodes: No lymphadenopathy. Peritoneum and retroperitoneum: There are multiple large fluid collections throughout the abdomen and pelvis, some of which are likely communicating with each other. The fluid collection in the pancreatic bed involving the lesser sac is slightly smaller, now measuring approximately 12.7 x 4.5 cm at the level of the lesser sac (image 38, series 4), previously 13.4 x 5.5 cm. There is a new pigtail catheter in this fluid collection. This fluid collection likely communicates with a fluid collection involving the right retroperitoneal space and right psoas muscle. This fluid collection measures approximately 10.1 x 9.4 cm, previously 10.3 x 9.7 cm. There is a new pigtail catheter in this collection. A fluid collection in the left paracolic gutter involving the left psoas muscle has slightly decreased in size, this measures 10.4 x 6.7 cm at the level of the inferior left renal pole, previously 11.7 x 6.7 cm. There is a new pleural catheter in this collection. There is a suspected additional fluid collection in the lower midpelvis between loops of bowel and abutting the bladder and uterus, measuring approximately 10.0 x 4.0 cm, unchanged. This could be confirmed by oral contrast to differentiate from a loop of bowel. No definite new fluid collection. There is a persistent small amount of free fluid in the pelvis. No free air. Bones: No acute osseous abnormality. Miscellaneous: Moderate new anasarca. IMPRESSION: 1. Sequela of pancreatitis with extensive pseudocyst/fluid collections throughout the abdomen and pelvis including a large peripancreatic fluid collection and bilateral retroperitoneal collections involving the psoas muscles. Fluid collections are unchanged to minimally decreased from CT 09/24/2019. There are 3 new pigtail drainage catheters in place. IV or oral contrast may be useful to better evaluate, if possible. 2. Slightly increased moderate to large partially loculated left pleural effusion with atelectasis or consolidation of the left lower lobe. Slightly increased small right pleural effusion and mild right pulmonary opacities. 3. Mild right hydronephrosis. 4. Cholelithiasis. 5. New anasarca. Electronically signed by: Kena Foote MD (10/03/2019 10:37 AM) [id number] DICTATED and SIGNED BY: KENA FOOTE MD DATE: 10/03/19 1037 PORTABLE CHEST 1V INDICATION: Reason: Vent, Pleural Effusion 104 / Spl. Instructions: / History: . COMPARISON STUDY: 10/05/2019. FINDINGS: Life Support Devices: Stable tracheostomy, enteric tube, left PICC, left pleural catheter. Lungs: Low lung volume. Improving right basilar opacities. Normal pulmonary vasculature. Pleura: Small bilateral pleural effusions. Heart and Mediastinum: Stable cardiomediastinal silhouette and great vessels. IMPRESSION: 1. Stable life support devices. 2. Improving right basilar opacities. 3. Small bilateral pleural effusions. Electronically signed by: Bill Michel MD (10/06/2019 8:26 AM) [id number] DICTATED and SIGNED BY: BILL MICHEL MD DATE: 10/06/19825 Laboratory Tests Test 10/07/19 12:25 10/07/19 14:43 10/07/19 23:40 10/08/19 05:50 Glucose (Fingerstick) 185 mg/dL (70-99) 147 mg/dL (70-99) Ionized Calcium 1.50 mmol/L (1.13-1.32) Iron Level 8 ug/dL (50-170) Total Iron Binding Capacity 56 ug/dL (250-450) Iron Saturation 14 % (15-34) White Blood Count 7.7 x10^3/uL (4.0-11.0) Red Blood Count 2.76 x10^6/uL (3.50-5.40) Hemoglobin 7.8 g/dL (12.0-15.5) Hematocrit 23.6 % (36.0-47.0) Mean Corpuscular Volume 85 fL (79-100) Mean Corpuscular Hemoglobin 28 pg (25-35) Mean Corpuscular Hemoglobin Concent 33 g/dL (31-37) Red Cell Distribution Width 18.2 % (11.5-14.5) Platelet Count 479 x10^3/uL (140-400) Neutrophils (%) (Auto) 74 % (31-73) Lymphocytes (%) (Auto) 16 % (24-48) Monocytes (%) (Auto) 9 % (0-9) Eosinophils (%) (Auto) 2 % (0-3) Basophils (%) (Auto) 0 % (0-3) Neutrophils # (Auto) 5.6 x10^3/uL (1.8-7.7) Lymphocytes # (Auto) 1.2 x10^3/uL (1.0-4.8) Monocytes # (Auto) 0.7 x10^3/uL (0.0-1.1) Eosinophils # (Auto) 0.1 x10^3/uL (0.0-0.7) Basophils # (Auto) 0.0 x10^3/uL (0.0-0.2) Sodium Level 137 mmol/L (136-145) Potassium Level 3.8 mmol/L (3.5-5.1) Chloride Level 103 mmol/L (98-107) Carbon Dioxide Level 28 mmol/L (21-32) Anion Gap 6 (6-14) Blood Urea Nitrogen 17 mg/dL (7-20) Creatinine 0.6 mg/dL (0.6-1.0) Estimated GFR (Cockcroft-Gault) 106.3 BUN/Creatinine Ratio 28 (6-20) Glucose Level 134 mg/dL (70-99) Calcium Level 9.4 mg/dL (8.5-10.1) Total Bilirubin 0.4 mg/dL (0.2-1.0) Aspartate Amino Transf (AST/SGOT) 17 U/L (15-37) Alanine Aminotransferase (ALT/SGPT) 18 U/L (14-59) Alkaline Phosphatase 101 U/L (46-116) Total Protein 4.4 g/dL (6.4-8.2) Albumin 1.1 g/dL (3.4-5.0) Albumin/Globulin Ratio 0.3 (1.0-1.7) Test 10/08/19 05:55 Glucose (Fingerstick) 131 mg/dL (70-99) Assessment and Plan Assessmemt and Plan Problems Medical Problems: (1) Acute pancreatitis Status: Acute (2) Cholelithiasis Status: Acute Comment Review of Relevant I have reviewed the following items kolby (where applicable) has been applied. Labs Laboratory Tests Test 10/06/19 11:45 10/06/19 17:31 10/07/19 01:26 10/07/19 06:20 Glucose (Fingerstick) 148 mg/dL (70-99) 135 mg/dL (70-99) 116 mg/dL (70-99) White Blood Count 8.9 x10^3/uL (4.0-11.0) Red Blood Count 2.94 x10^6/uL (3.50-5.70) Hemoglobin 8.2 g/dL (12.0-15.5) Hematocrit 24.9 % (36.0-47.0) Mean Corpuscular Volume 85 fL (79-100) Mean Corpuscular Hemoglobin 28 pg (25-35) Mean Corpuscular Hemoglobin Concent 33 g/dL (31-37) Red Cell Distribution Width 18.2 % (11.5-14.5) Platelet Count 452 x10^3/uL (140-400) Neutrophils (%) (Auto) 77 % (31-73) Lymphocytes (%) (Auto) 15 % (24-48) Monocytes (%) (Auto) 7 % (0-9) Eosinophils (%) (Auto) 1 % (0-3) Basophils (%) (Auto) 0 % (0-3) Neutrophils # (Auto) 6.8 x10^3/uL (1.8-7.7) Lymphocytes # (Auto) 1.3 x10^3/uL (1.0-4.8) Monocytes # (Auto) 0.6 x10^3/uL (0.0-1.1) Eosinophils # (Auto) 0.1 x10^3/uL (0.0-0.7) Basophils # (Auto) 0.0 x10^3/uL (0.0-0.2) Absolute Reticulocyte Count 0.120 x10^6/uL (0.020-0.120) Percent Reticulocyte Count 4.1 % (0.5-2.3) Immature Reticulocyte Fraction 0.26 (0.20-0.60) Sodium Level 137 mmol/L (136-145) Potassium Level 3.9 mmol/L (3.5-5.1) Chloride Level 105 mmol/L (98-107) Carbon Dioxide Level 26 mmol/L (21-32) Anion Gap 6 (6-14) Blood Urea Nitrogen 18 mg/dL (7-20) Creatinine 0.6 mg/dL (0.6-1.0) Estimated GFR (Cockcroft-Gault) 106.3 BUN/Creatinine Ratio 30 (6-20) Glucose Level 109 mg/dL (70-99) Calcium Level 9.3 mg/dL (8.5-10.1) Magnesium Level 1.9 mg/dL (1.8-2.4) Total Bilirubin 0.6 mg/dL (0.2-1.0) Aspartate Amino Transf (AST/SGOT) 17 U/L (15-37) Alanine Aminotransferase (ALT/SGPT) 18 U/L (14-59) Alkaline Phosphatase 92 U/L (46-116) Total Protein 4.4 g/dL (6.4-8.2) Albumin 1.2 g/dL (3.4-5.0) Albumin/Globulin Ratio 0.4 (1.0-1.7) Thyroid Stimulating Hormone (TSH) 1.237 uIU/mL (0.358-3.74) Test 10/07/19 06:30 10/07/19 12:25 10/07/19 14:43 10/07/19 23:40 Glucose (Fingerstick) 102 mg/dL (70-99) 185 mg/dL (70-99) 147 mg/dL (70-99) Ionized Calcium 1.50 mmol/L (1.13-1.32) Iron Level 8 ug/dL (50-170) Total Iron Binding Capacity 56 ug/dL (250-450) Iron Saturation 14 % (15-34) Test 10/08/19 05:50 10/08/19 05:55 White Blood Count 7.7 x10^3/uL (4.0-11.0) Red Blood Count 2.76 x10^6/uL (3.50-5.40) Hemoglobin 7.8 g/dL (12.0-15.5) Hematocrit 23.6 % (36.0-47.0) Mean Corpuscular Volume 85 fL (79-100) Mean Corpuscular Hemoglobin 28 pg (25-35) Mean Corpuscular Hemoglobin Concent 33 g/dL (31-37) Red Cell Distribution Width 18.2 % (11.5-14.5) Platelet Count 479 x10^3/uL (140-400) Neutrophils (%) (Auto) 74 % (31-73) Lymphocytes (%) (Auto) 16 % (24-48) Monocytes (%) (Auto) 9 % (0-9) Eosinophils (%) (Auto) 2 % (0-3) Basophils (%) (Auto) 0 % (0-3) Neutrophils # (Auto) 5.6 x10^3/uL (1.8-7.7) Lymphocytes # (Auto) 1.2 x10^3/uL (1.0-4.8) Monocytes # (Auto) 0.7 x10^3/uL (0.0-1.1) Eosinophils # (Auto) 0.1 x10^3/uL (0.0-0.7) Basophils # (Auto) 0.0 x10^3/uL (0.0-0.2) Sodium Level 137 mmol/L (136-145) Potassium Level 3.8 mmol/L (3.5-5.1) Chloride Level 103 mmol/L (98-107) Carbon Dioxide Level 28 mmol/L (21-32) Anion Gap 6 (6-14) Blood Urea Nitrogen 17 mg/dL (7-20) Creatinine 0.6 mg/dL (0.6-1.0) Estimated GFR (Cockcroft-Gault) 106.3 BUN/Creatinine Ratio 28 (6-20) Glucose Level 134 mg/dL (70-99) Calcium Level 9.4 mg/dL (8.5-10.1) Total Bilirubin 0.4 mg/dL (0.2-1.0) Aspartate Amino Transf (AST/SGOT) 17 U/L (15-37) Alanine Aminotransferase (ALT/SGPT) 18 U/L (14-59) Alkaline Phosphatase 101 U/L (46-116) Total Protein 4.4 g/dL (6.4-8.2) Albumin 1.1 g/dL (3.4-5.0) Albumin/Globulin Ratio 0.3 (1.0-1.7) Glucose (Fingerstick) 131 mg/dL (70-99) Laboratory Tests Test 10/07/19 12:25 10/07/19 14:43 10/07/19 23:40 10/08/19 05:50 Glucose (Fingerstick) 185 mg/dL (70-99) 147 mg/dL (70-99) Ionized Calcium 1.50 mmol/L (1.13-1.32) Iron Level 8 ug/dL (50-170) Total Iron Binding Capacity 56 ug/dL (250-450) Iron Saturation 14 % (15-34) White Blood Count 7.7 x10^3/uL (4.0-11.0) Red Blood Count 2.76 x10^6/uL (3.50-5.40) Hemoglobin 7.8 g/dL (12.0-15.5) Hematocrit 23.6 % (36.0-47.0) Mean Corpuscular Volume 85 fL (79-100) Mean Corpuscular Hemoglobin 28 pg (25-35) Mean Corpuscular Hemoglobin Concent 33 g/dL (31-37) Red Cell Distribution Width 18.2 % (11.5-14.5) Platelet Count 479 x10^3/uL (140-400) Neutrophils (%) (Auto) 74 % (31-73) Lymphocytes (%) (Auto) 16 % (24-48) Monocytes (%) (Auto) 9 % (0-9) Eosinophils (%) (Auto) 2 % (0-3) Basophils (%) (Auto) 0 % (0-3) Neutrophils # (Auto) 5.6 x10^3/uL (1.8-7.7) Lymphocytes # (Auto) 1.2 x10^3/uL (1.0-4.8) Monocytes # (Auto) 0.7 x10^3/uL (0.0-1.1) Eosinophils # (Auto) 0.1 x10^3/uL (0.0-0.7) Basophils # (Auto) 0.0 x10^3/uL (0.0-0.2) Sodium Level 137 mmol/L (136-145) Potassium Level 3.8 mmol/L (3.5-5.1) Chloride Level 103 mmol/L (98-107) Carbon Dioxide Level 28 mmol/L (21-32) Anion Gap 6 (6-14) Blood Urea Nitrogen 17 mg/dL (7-20) Creatinine 0.6 mg/dL (0.6-1.0) Estimated GFR (Cockcroft-Gault) 106.3 BUN/Creatinine Ratio 28 (6-20) Glucose Level 134 mg/dL (70-99) Calcium Level 9.4 mg/dL (8.5-10.1) Total Bilirubin 0.4 mg/dL (0.2-1.0) Aspartate Amino Transf (AST/SGOT) 17 U/L (15-37) Alanine Aminotransferase (ALT/SGPT) 18 U/L (14-59) Alkaline Phosphatase 101 U/L (46-116) Total Protein 4.4 g/dL (6.4-8.2) Albumin 1.1 g/dL (3.4-5.0) Albumin/Globulin Ratio 0.3 (1.0-1.7) Test 10/08/19 05:55 Glucose (Fingerstick) 131 mg/dL (70-99) Microbiology 10/06/19 Blood Culture - Preliminary, Resulted NO GROWTH AFTER 1 DAY 10/03/19 Gram Stain - Final, Resulted 10/03/19 Aerobic and Anaerobic Culture - Preliminary, Resulted 10/01/19 Gram Stain Evaluation - Final, Complete 10/01/19 Respiratory Culture - Final, Complete 10/01/19 Antimicrobic Susceptibility - Final, Complete 09/25/19 Urine Culture - Final, Complete 09/17/19 Gram Stain - Final, Complete 09/17/19 Aerobic Culture - Final, Complete Medications Current Medications Sodium Chloride 1,000 ml @ 1,000 mls/hr Q1H IV Last administered on 07/04/19at 03:00; Start 07/04/19 at 03:00; Stop 07/04/19 at 03:59; Status DC Ondansetron HCl (Zofran) 4 mg 1X ONCE IVP Last administered on 07/04/19at 03:27; Start 07/04/19 at 03:00; Stop 07/04/19 at 03:01; Status DC Morphine Sulfate (Morphine Sulfate) 4 mg 1X ONCE IV ; Start 07/04/19 at 03:00; Stop 07/04/19 at 03:01; Status Cancel Ketorolac Tromethamine (Toradol 30mg Vial) 30 mg 1X ONCE IV Last administered on 07/04/19at 02:54; Start 07/04/19 at 03:00; Stop 07/04/19 at 03:01; Status DC Fentanyl Citrate (Fentanyl 2ml Vial) 25 mcg 1X ONCE IVP Last administered on 07/04/19at 03:23; Start 07/04/19 at 03:30; Stop 07/04/19 at 03:31; Status DC Fentanyl Citrate (Fentanyl 2ml Vial) 100 mcg STK-MED ONCE .ROUTE ; Start 07/04/19 at 03:18; Stop 07/04/19 at 03:18; Status DC Iohexol (Omnipaque 350 Mg/ml) 90 ml 1X ONCE IV Last administered on 07/04/19at 03:25; Start 07/04/19 at 03:30; Stop 07/04/19 at 03:31; Status DC Info (CONTRAST GIVEN -- Rx MONITORING) 1 each PRN DAILY PRN MC SEE COMMENTS; Start 07/04/19 at 03:30; Stop 07/06/19 at 03:29; Status DC Hydromorphone HCl (Dilaudid) 0.5 mg 1X ONCE IV Last administered on 07/04/19at 03:55; Start 07/04/19 at 04:30; Stop 07/04/19 at 04:32; Status DC Ondansetron HCl (Zofran) 4 mg PRN Q8HRS PRN IV NAUSEA/VOMITING 1ST CHOICE; Start 07/04/19 at 05:00; Stop 07/04/19 at 09:27; Status DC Morphine Sulfate (Morphine Sulfate) 2 mg PRN Q2HR PRN IV SEVERE PAIN 7-10 Last administered on 07/05/19at 12:26; Start 07/04/19 at 05:00; Stop 07/05/19 at 14:15; Status DC Sodium Chloride 1,000 ml @ 125 mls/hr Q8H IV Last administered on 07/04/19at 20:56; Start 07/04/19 at 05:00; Stop 07/05/19 at 04:59; Status DC Hydromorphone HCl (Dilaudid) 0.5 mg PRN Q3HRS PRN IV SEVERE PAIN 7-10 Last administered on 07/05/19at 10:06; Start 07/04/19 at 05:00; Stop 07/05/19 at 12:01; Status DC Piperacillin Sod/ Tazobactam Sod 4.5 gm/Sodium Chloride 100 ml @ 200 mls/hr 1X ONCE IV Last administered on 07/04/19at 05:44; Start 07/04/19 at 06:00; Stop 07/04/19 at 06:29; Status DC Ondansetron HCl (Zofran) 4 mg PRN Q4HRS PRN IV NAUSEA/VOMITING 1ST CHOICE Last administered on 10/05/19at 23:20; Start 07/04/19 at 09:30 Insulin Human Lispro (HumaLOG) 0-9 UNITS Q6HRS SQ Last administered on 10/07/19at 12:27; Start 07/04/19 at 09:30 Dextrose (Dextrose 50%-Water Syringe) 12.5 gm PRN Q15MIN PRN IV SEE COMMENTS; Start 07/04/19 at 09:30 Pantoprazole Sodium (PROTONIX VIAL for IV PUSH) 40 mg DAILYAC IVP Last administered on 10/07/19at 08:34; Start 07/04/19 at 11:30 Prochlorperazine Edisylate (Compazine) 10 mg PRN Q6HRS PRN IV NAUSEA/VOMITING, 2nd CHOICE Last administered on 10/08/19at 00:13; Start 07/04/19 at 17:45 Atenolol (Tenormin) 100 mg DAILY PO ; Start 07/05/19 at 09:00; Stop 07/04/19 at 20:08; Status DC Metoprolol Tartrate (Lopressor Vial) 2.5 mg Q6HRS IVP Last administered on 07/05/19at 05:51; Start 07/04/19 at 20:15; Stop 07/05/19 at 10:02; Status DC Metoprolol Tartrate (Lopressor Vial) 5 mg Q6HRS IVP Last administered on at 00:12; Start 07/05/19 at 10:15; Stop 07/16/19 at 08:48; Status DC Hydromorphone HCl (Dilaudid) 1 mg PRN Q3HRS PRN IV SEVERE PAIN 7-10 Last administered on 07/11/19at 05:13; Start 07/05/19 at 12:00; Stop 07/19/19 at 00:25; Status DC Lidocaine HCl (Buffered Lidocaine 1%) 3 ml STK-MED ONCE .ROUTE ; Start 07/05/19 at 12:55; Stop 07/05/19 at 12:56; Status DC Albumin Human 500 ml @ 125 mls/hr 1X ONCE IV Last administered on 07/05/19at 14:33; Start 07/05/19 at 14:30; Stop 07/05/19 at 18:32; Status DC Norepinephrine Bitartrate 8 mg/ Dextrose 258 ml @ 17.299 mls/ hr CONT PRN IV PER PROTOCOL Last administered on 08/02/19at 12:48; Start 07/05/19 at 15:30; Stop 08/05/19 at 09:19; Status DC Sodium Chloride 1,000 ml @ 125 mls/hr Q8H IV Last administered on 07/05/19at 21:04; Start 07/05/19 at 16:00; Stop 07/06/19 at 02:42; Status DC Albumin Human 500 ml @ 125 mls/hr PRN BID PRN IV After every 2L NSS & BP < 90mm Last administered on 09/24/19at 11:40; Start 07/05/19 at 16:00 Iohexol (Omnipaque 300 Mg/ml) 60 ml 1X ONCE IV Last administered on 07/05/19at 17:20; Start 07/05/19 at 17:00; Stop 07/05/19 at 17:01; Status DC Info (CONTRAST GIVEN -- Rx MONITORING) 1 each PRN DAILY PRN MC SEE COMMENTS; Start 07/05/19 at 17:00; Stop 07/07/19 at 16:59; Status DC Meropenem 1 gm/ Sodium Chloride 100 ml @ 200 mls/hr Q8HRS IV Last administered on 07/06/19at 05:45; Start 07/05/19 at 20:00; Stop 07/06/19 at 08:48; Status DC Furosemide (Lasix) 40 mg 1X ONCE IVP Last administered on 07/05/19at 22:12; Start 07/05/19 at 22:30; Stop 07/05/19 at 22:31; Status DC Calcium Chloride 1000 mg/Sodium Chloride 110 ml @ 220 mls/hr 1X ONCE IV Last administered on 07/05/19at 22:11; Start 07/05/19 at 22:30; Stop 07/05/19 at 22:59; Status DC Albuterol Sulfate (Ventolin Neb Soln) 2.5 mg 1X ONCE NEB Last administered on 07/06/19at 00:56; Start 07/05/19 at 22:30; Stop 07/05/19 at 22:31; Status DC Insulin Human Regular (HumuLIN R VIAL) 5 unit 1X ONCE IV Last administered on 07/05/19at 22:14; Start 07/05/19 at 22:30; Stop 07/05/19 at 22:31; Status DC Magnesium Sulfate 50 ml @ 25 mls/hr 1X ONCE IV Last administered on 07/06/19at 02:57; Start 07/06/19 at 03:00; Stop 07/06/19 at 04:59; Status DC Calcium Gluconate 1000 mg/Sodium Chloride 110 ml @ 220 mls/hr 1X ONCE IV Last administered on 07/06/19at 02:46; Start 07/06/19 at 03:00; Stop 07/06/19 at 03:29; Status DC Sodium Chloride 1,000 ml @ 200 mls/hr Q5H IV Last administered on 07/06/19at 02:46; Start 07/06/19 at 03:00; Stop 07/06/19 at 10:21; Status DC Calcium Gluconate 1000 mg/Sodium Chloride 110 ml @ 220 mls/hr 1X ONCE IV Last administered on 07/06/19at 03:21; Start 07/06/19 at 03:30; Stop 07/06/19 at 03:59; Status DC Sodium Bicarbonate 50 meq/Sodium Chloride 1,050 ml @ 75 mls/hr Q14H IV Last administered on 07/10/19at 21:10; Start 07/06/19 at 07:30; Stop 07/11/19 at 10:28; Status DC Calcium Gluconate 2000 mg/Sodium Chloride 120 ml @ 220 mls/hr 1X ONCE IV Last administered on 07/06/19at 09:05; Start 07/06/19 at 07:30; Stop 07/06/19 at 08:02; Status DC Lidocaine HCl (Xylocaine-Mpf 1% 2ml Vial) 2 ml STK-MED ONCE .ROUTE ; Start 07/06/19 at 08:47; Stop 07/06/19 at 08:47; Status DC Meropenem 500 mg/ Sodium Chloride 50 ml @ 100 mls/hr Q12HR IV Last administered on 07/11/19at 21:01; Start 07/06/19 at 18:00; Stop 07/12/19 at 07:58; Status DC Lidocaine HCl (Buffered Lidocaine 1%) 3 ml STK-MED ONCE .ROUTE ; Start 07/06/19 at 09:46; Stop 07/06/19 at 09:46; Status DC Lidocaine HCl (Buffered Lidocaine 1%) 6 ml 1X ONCE INJ Last administered on 07/06/19at 10:26; Start 07/06/19 at 10:15; Stop 07/06/19 at 10:16; Status DC Info (Tpn Per Pharmacy) 1 each PRN DAILY PRN MC SEE COMMENTS Last administered on 10/07/19at 10:54; Start 07/06/19 at 12:00 Sodium Chloride 1,000 ml @ 1,000 mls/hr Q1H PRN IV hypotension; Start 07/06/19 at 12:07; Stop 07/06/19 at 18:06; Status DC Diphenhydramine HCl (Benadryl) 25 mg 1X PRN PRN IV ITCHING; Start 07/06/19 at 12:15; Stop 07/07/19 at 12:14; Status DC Diphenhydramine HCl (Benadryl) 25 mg 1X PRN PRN IV ITCHING; Start 07/06/19 at 12:15; Stop 07/07/19 at 12:14; Status DC Sodium Chloride 1,000 ml @ 400 mls/hr Q2H30M PRN IV PATENCY; Start 07/06/19 at 12:07; Stop 07/07/19 at 00:06; Status DC Info (PHARMACY MONITORING -- do not chart) 1 each PRN DAILY PRN MC SEE COMMENTS; Start 07/06/19 at 12:15; Stop 07/08/19 at 08:13; Status DC Sodium Chloride 90 meq/Calcium Gluconate 10 meq/ Multivitamins 10 ml/Chromium/ Copper/Manganese/ Seleni/Zn 1 ml/ Total Parenteral Nutrition/Amino Acids/Dextrose/ Fat Emulsion Intravenous 55.005 ml @ 2.292 mls/hr TPN CONT IV ; Start 07/06/19 at 22:00; Stop 07/06/19 at 12:33; Status DC Info (Tpn Per Pharmacy) 1 each PRN DAILY PRN MC SEE COMMENTS; Start 07/06/19 at 12:30; Status UNV Sodium Chloride 90 meq/Calcium Gluconate 10 meq/ Multivitamins 10 ml/Chromium/ Copper/Manganese/ Seleni/Zn 0.5 ml/ Total Parenteral Nutrition/Amino Acids/Dextrose/ Fat Emulsion Intravenous 1,512 ml @ 63 mls/hr TPN CONT IV Last administered on 07/06/19at 22:06; Start 07/06/19 at 22:00; Stop 07/07/19 at 21:59; Status DC Calcium Carbonate/ Glycine (Tums) 500 mg PRN AFTMEALHC PRN PO INDIGESTION; Start 07/06/19 at 17:45; Stop 08/31/19 at 10:25; Status DC Calcium Gluconate (Calcium Gluconate) 2,000 mg 1X ONCE IVP Last administered on 07/07/19at 02:19; Start 07/07/19 at 02:15; Stop 07/07/19 at 02:16; Status DC Calcium Chloride 3000 mg/Sodium Chloride 1,030 ml @ 50 mls/hr [id number] IV Last administered on 07/09/19at 02:17; Start 07/07/19 at 08:00; Stop 07/09/19 at 15:23; Status DC Lorazepam (Ativan Inj) 1 mg PRN Q4HRS PRN IVP ANXIETY / AGITATION, 2nd choic Last administered on 08/05/19at 03:51; Start 07/07/19 at 09:00; Stop 08/05/19 at 09:19; Status DC Sodium Chloride 1,000 ml @ 1,000 mls/hr Q1H PRN IV hypotension; Start 07/07/19 at 08:56; Stop 07/07/19 at 14:55; Status DC Albumin Human 200 ml @ 200 mls/hr 1X PRN PRN IV Hypotension; Start 07/07/19 at 09:00; Stop 07/07/19 at 14:59; Status DC Diphenhydramine HCl (Benadryl) 25 mg 1X PRN PRN IV ITCHING; Start 07/07/19 at 09:00; Stop 07/08/19 at 08:59; Status DC Diphenhydramine HCl (Benadryl) 25 mg 1X PRN PRN IV ITCHING; Start 07/07/19 at 09:00; Stop 07/08/19 at 08:59; Status DC Sodium Chloride 1,000 ml @ 400 mls/hr Q2H30M PRN IV PATENCY; Start 07/07/19 at 08:56; Stop 07/07/19 at 20:55; Status DC Info (PHARMACY MONITORING -- do not chart) 1 each PRN DAILY PRN MC SEE COMMENTS; Start 07/07/19 at 09:00; Status UNV Info (PHARMACY MONITORING -- do not chart) 1 each PRN DAILY PRN MC SEE C OMMENTS; Start 07/07/19 at 09:00; Stop 07/08/19 at 08:13; Status DC Digoxin (Lanoxin) 500 mcg 1X ONCE IV Last administered on 07/07/19at 10:04; Start 07/07/19 at 10:00; Stop 07/07/19 at 10:01; Status DC Digoxin (Lanoxin) 125 mcg 1X ONCE IV Last administered on 07/07/19at 17:10; Start 07/07/19 at 18:00; Stop 07/07/19 at 18:01; Status DC Magnesium Sulfate 100 ml @ 25 mls/hr 1X ONCE IV Last administered on 07/07/19at 12:48; Start 07/07/19 at 13:00; Stop 07/07/19 at 16:59; Status DC Sodium Chloride 90 meq/Magnesium Sulfate 10 meq/ Calcium Gluconate 20 meq/ Multivitamins 10 ml/Chromium/ Copper/Manganese/ Seleni/Zn 0.5 ml/ Total P arenteral Nutrition/Amino Acids/Dextrose/ Fat Emulsion Intravenous 1,512 ml @ 63 mls/hr TPN CONT IV Last administered on 07/07/19at 22:25; Start 07/07/19 at 22:00; Stop 07/08/19 at 21:59; Status DC Sodium Chloride 1,000 ml @ 1,000 mls/hr Q1H PRN IV hypotension; Start 07/08/19 at 08:05; Stop 07/08/19 at 14:04; Status DC Albumin Human 200 ml @ 200 mls/hr 1X ONCE IV Last administered on 07/08/19at 08:57; Start 07/08/19 at 08:15; Stop 07/08/19 at 09:14; Status DC Diphenhydramine HCl (Benadryl) 25 mg 1X PRN PRN IV ITCHING; Start 07/08/19 at 08:15; Stop 07/09/19 at 08:14; Status DC Diphenhydramine HCl (Benadryl) 25 mg 1X PRN PRN IV ITCHING; Start 07/08/19 at 08:15; Stop 07/09/19 at 08:14; Status DC Sodium Chloride 1,000 ml @ 400 mls/hr Q2H30M PRN IV PATENCY; Start 07/08/19 at 08:05; Stop 07/08/19 at 20:04; Status DC Info (PHARMACY MONITORING -- do not chart) 1 each PRN DAILY PRN MC SEE COMMENTS; Start 07/08/19 at 08:15; Stop 07/12/19 at 07:57; Status DC Sodium Chloride 90 meq/Potassium Chloride 15 meq/ Potassium Phosphate 10 mmol/ Magnesium Sulfate 10 meq/Calcium Gluconate 20 meq/ Multivitamins 10 ml/Chromium/ Copper/Manganese/ Seleni/Zn 0.5 ml/ Total Parenteral Nutrition/Amino Acids/Dextrose/ Fat Emulsion Intravenous 1,512 ml @ 63 mls/hr TPN CONT IV Last administered on 07/08/19at 21:01; Start 07/08/19 at 22:00; Stop 07/09/19 at 21:59; Status DC Potassium Chloride/Water 100 ml @ 100 mls/hr 1X ONCE IV Last administered on 07/08/19at 14:09; Start 07/08/19 at 14:00; Stop 07/08/19 at 14:59; Status DC Benzocaine (Hurricaine One) 1 spray 1X ONCE MM Last administered on 07/08/19at 16:38; Start 07/08/19 at 14:30; Stop 07/08/19 at 14:31; Status DC Lidocaine HCl (Glydo (Lidocaine) Jelly) 1 ramu 1X ONCE MM Last administered on 07/08/19at 16:38; Start 07/08/19 at 14:30; Stop 07/08/19 at 14:31; Status DC Linezolid/Dextrose 300 ml @ 300 mls/hr Q12HR IV Last administered on 07/14/19at 21:04; Start 07/08/19 at 20:00; Stop 07/15/19 at 07:50; Status DC Acetaminophen (Tylenol) 650 mg PRN Q6HRS PRN PO MILD PAIN / TEMP; Start 07/09/19 at 03:30; Stop 07/09/19 at 03:36; Status DC Acetaminophen (Tylenol) 650 mg PRN Q6HRS PRN PEG MILD PAIN / TEMP Last administered on 08/04/19at 19:56; Start 07/09/19 at 03:36; Stop 08/31/19 at 10:25; Status DC Sodium Chloride 1,000 ml @ 1,000 mls/hr Q1H PRN IV hypotension; Start 07/09/19 at 07:50; Stop 07/09/19 at 13:49; Status DC Albumin Human 200 ml @ 200 mls/hr 1X PRN PRN IV Hypotension; Start 07/09/19 at 08:00; Stop 07/09/19 at 13:59; Status DC Sodium Chloride (Normal Saline Flush) 10 ml 1X PRN PRN IV AP catheter pack; Start 07/09/19 at 08:00; Stop 07/10/19 at 07:59; Status DC Sodium Chloride (Normal Saline Flush) 10 ml 1X PRN PRN IV SHUTTLE FILLER catheter pack; Start 07/09/19 at 08:00; Stop 07/10/19 at 07:59; Status DC Sodium Chloride 1,000 ml @ 400 mls/hr Q2H30M PRN IV PATENCY; Start 07/09/19 at 07:50; Stop 07/09/19 at 19:49; Status DC Info (PHARMACY MONITORING -- do not chart) 1 each PRN DAILY PRN MC SEE COMMENTS; Start 07/09/19 at 08:00; Status UNV Info (PHARMACY MONITORING -- do not chart) 1 each PRN DAILY PRN MC SEE COMMENTS; Start 07/09/19 at 08:00; Stop 07/11/19 at 08:25; Status DC Sodium Chloride 90 meq/Potassium Chloride 15 meq/ Potassium Phosphate 10 mmol/ Magnesium Sulfate 10 meq/Calcium Gluconate 20 meq/ Multivitamins 10 ml/Chromium/ Copper/Manganese/ Seleni/Zn 0.5 ml/ Total Parenteral Nutrition/Amino Acids/Dextrose/ Fat Emulsion Intravenous 1,512 ml @ 63 mls/hr TPN CONT IV Last administered on 07/09/19at 20:57; Start 07/09/19 at 22:00; Stop 07/10/19 at 21:59; Status DC Sodium Chloride 90 meq/Potassium Chloride 15 meq/ Potassium Phosphate 15 mmol/ Magnesium Sulfate 10 meq/Calcium Gluconate 20 meq/ Multivitamins 10 ml/Chromium/ Copper/Manganese/ Seleni/Zn 0.5 ml/ Total Parenteral Nutrition/Amino Acids/Dextrose/ Fat Emulsion Intravenous 1,512 ml @ 63 mls/hr TPN CONT IV ; Start 07/10/19 at 22:00; Stop 07/10/19 at 14:16; Status DC Sodium Chloride 90 meq/Potassium Chloride 15 meq/ Potassium Phosphate 15 mmol/ Magnesium Sulfate 10 meq/Calcium Gluconate 20 meq/ Multivitamins 10 ml/Chromium/ Copper/Manganese/ Seleni/Zn 0.5 ml/ Total Parenteral Nutrition/Amino Acids/Dextrose/ Fat Emulsion Intravenous 1,200 ml @ 50 mls/hr TPN CONT IV ; Start 07/10/19 at 22:00; Stop 07/10/19 at 14:17; Status DC Sodium Chloride 90 meq/Potassium Chloride 15 meq/ Potassium Phosphate 10 mmol/ Magnesium Sulfate 10 meq/Calcium Gluconate 20 meq/ Multivitamins 10 ml/Chromium/ Copper/Manganese/ Seleni/Zn 0.5 ml/ Total Parenteral Nutrition/Amino Acids/Dextrose/ Fat Emulsion Intravenous 1,200 ml @ 50 mls/hr TPN CONT IV Last administered on 07/10/19at 23:29; Start 07/10/19 at 22:00; Stop 07/11/19 at 21:59; Status DC Sodium Chloride 1,000 ml @ 1,000 mls/hr Q1H PRN IV hypotension; Start 07/11/19 at 07:28; Stop 07/11/19 at 13:27; Status DC Albumin Human 200 ml @ 200 mls/hr 1X ONCE IV Last administered on 07/11/19at 08:51; Start 07/11/19 at 07:30; Stop 07/11/19 at 08:29; Status DC Diphenhydramine HCl (Benadryl) 25 mg 1X PRN PRN IV ITCHING; Start 07/11/19 at 07:30; Stop 07/12/19 at 07:29; Status DC Diphenhydramine HCl (Benadryl) 25 mg 1X PRN PRN IV ITCHING; Start 07/11/19 at 07:30; Stop 07/12/19 at 07:29; Status DC Sodium Chloride 1,000 ml @ 400 mls/hr Q2H30M PRN IV PATENCY; Start 07/11/19 at 07:28; Stop 07/11/19 at 19:27; Status DC Info (PHARMACY MONITORING -- do not chart) 1 each PRN DAILY PRN MC SEE COMMENTS; Start 07/11/19 at 07:30; Stop 07/22/19 at 13:01; Status DC Metronidazole 100 ml @ 100 mls/hr Q6HRS IV Last administered on 07/27/19at 06:26; Start 07/11/19 at 08:30; Stop 07/27/19 at 09:58; Status DC Micafungin Sodium 100 mg/Dextrose 100 ml @ 100 mls/hr Q24H IV Last administered on 08/18/19at 08:18; Start 07/11/19 at 09:00; Stop 08/18/19 at 20:58; Status DC Propofol 0 ml @ As Directed STK-MED ONCE IV ; Start 07/11/19 at 07:53; Stop at 07:53; Status DC Etomidate (Amidate) 20 mg STK-MED ONCE IV ; Start 07/11/19 at 07:53; Stop 07/11/19 at 07:54; Status DC Midazolam HCl (Versed) 5 mg STK-MED ONCE .ROUTE ; Start 07/11/19 at 07:57; Stop 07/11/19 at 07:57; Status DC Fentanyl Citrate 30 ml @ 0 mls/hr CONT PRN IV SEE PROTOCOL Last administered on 08/05/19at 06:12; Start 07/11/19 at 08:15; Stop 08/05/19 at 09:19; Status DC Artificial Tears (Artificial Tears) 1 drop PRN Q1HR PRN OU DRY EYE, 1st choice; Start 07/11/19 at 08:15; Stop 08/17/19 at 05:31; Status DC Midazolam HCl 50 mg/Sodium Chloride 50 ml @ 0 mls/hr CONT PRN IV SEE PROTOCOL Last administered on 07/14/19at 22:39; Start 07/11/19 at 08:15; Stop 07/16/19 at 15:59; Status DC Etomidate (Amidate) 8 mg 1X ONCE IV Last administered on 07/11/19at 08:33; Start 07/11/19 at 08:30; Stop 07/11/19 at 08:31; Status DC Succinylcholine Chloride (Anectine) 120 mg 1X ONCE IV Last administered on 07/11/19at 08:34; Start 07/11/19 at 08:30; Stop 07/11/19 at 08:31; Status DC Midazolam HCl (Versed) 5 mg 1X ONCE IV ; Start 07/11/19 at 08:30; Stop 07/11/19 at 08:31; Status DC Potassium Chloride 15 meq/ Bicarbonate Dialysis Soln w/ out KCl 5,007.5 ml @ 1,000 mls/ hr Q5H1M IV Last administered on 07/12/19at 11:11; Start 07/11/19 at 12:00; Stop 07/12/19 at 11:15; Status DC Potassium Chloride 15 meq/ Bicarbonate Dialysis Soln w/ out KCl 5,007.5 ml @ 1,000 mls/ hr Q5H1M IV Last administered on 07/12/19at 11:12; Start 07/11/19 at 12:00; Stop 07/12/19 at 11:17; Status DC Potassium Chloride 15 meq/ Bicarbonate Dialysis Soln w/ out KCl 5,007.5 ml @ 1,000 mls/ hr Q5H1M IV Last administered on 07/12/19at 11:11; Start 07/11/19 at 12:00; Stop 07/12/19 at 11:19; Status DC Sodium Chloride 90 meq/Potassium Chloride 15 meq/ Potassium Phosphate 10 mmol/ Magnesium Sulfate 10 meq/Calcium Gluconate 20 meq/ Multivitamins 10 ml/Chromium/ Copper/Manganese/ Seleni/Zn 0.5 ml/ Total Parenteral Nutrition/Amino Acids/Dextrose/ Fat Emulsion Intravenous 1,400 ml @ 58.333 mls/ hr TPN CONT IV Last administered on 07/11/19at 21:42; Start 07/11/19 at 22:00; Stop 07/12/19 at 21:59; Status DC Heparin Sodium (Porcine) (Heparin Sodium) 5,000 unit Q8HRS SQ Last administered on 07/16/19at 05:55; Start 07/11/19 at 15:00; Stop 07/16/19 at 13:28; Status DC Meropenem 500 mg/ Sodium Chloride 50 ml @ 100 mls/hr Q6HRS IV Last administered on 07/13/19at 06:00; Start 07/12/19 at 09:00; Stop 07/13/19 at 07:29; Status DC Potassium Phosphate 20 mmol/ Sodium Chloride 106.6667 ml @ 51.667 m... 1X ONCE IV Last administered on 07/12/19at 11:22; Start 07/12/19 at 10:15; Stop 07/12/19 at 12:18; Status DC Acetaminophen (Tylenol Supp) 650 mg PRN Q6HRS PRN LA MILD PAIN / TEMP > 100.3'F Last administered on 10/06/19at 10:16; Start 07/12/19 at 10:30 Potassium Chloride/Water 100 ml @ 100 mls/hr Q1H IV Last administered on 07/12/19at 12:12; Start 07/12/19 at 11:00; Stop 07/12/19 at 12:59; Status DC Potassium Chloride 20 meq/ Bicarbonate Dialysis Soln w/ out KCl 5,010 ml @ 1,000 mls/hr Q5H1M IV Last administered on 07/13/19at 08:48; Start 07/12/19 at 12:00; Stop 07/13/19 at 13:03; Status DC Potassium Chloride 20 meq/ Bicarbonate Dialysis Soln w/ out KCl 5,010 ml @ 1,000 mls/hr Q5H1M IV Last administered on 07/17/19at 14:52; Start 07/12/19 at 11:30; Stop 07/17/19 at 19:59; Status DC Potassium Chloride 20 meq/ Bicarbonate Dialysis Soln w/ out KCl 5,010 ml @ 1,000 mls/hr Q5H1M IV Last administered on 07/17/19at 14:53; Start 07/12/19 at 11:30; Stop 07/17/19 at 19:59; Status DC Sodium Chloride 90 meq/Potassium Chloride 15 meq/ Potassium Phosphate 15 mmol/ Magnesium Sulfate 10 meq/Calcium Gluconate 15 meq/ Multivitamins 10 ml/Chromium/ Copper/Manganese/ Seleni/Zn 0.5 ml/ Total Parenteral Nutrition/Amino Acids/Dextrose/ Fat Emulsion Intravenous 1,400 ml @ 58.333 mls/ hr TPN CONT IV Last administered on 07/12/19at 22:17; Start 07/12/19 at 22:00; Stop 07/13/19 at 21:59; Status DC Cefepime HCl (Maxipime) 2 gm Q12HR IVP Last administered on 07/26/19at 20:56; Start 07/13/19 at 09:00; Stop 07/27/19 at 09:58; Status DC Daptomycin 500 mg/ Sodium Chloride 50 ml @ 100 mls/hr Q48H IV Last administered on 07/29/19at 09:57; Start 07/13/19 at 08:30; Stop 07/29/19 at 10:07; Status DC Lidocaine HCl (Buffered Lidocaine 1%) 3 ml 1X ONCE INJ Last administered on 07/13/19at 10:27; Start 07/13/19 at 10:30; Stop 07/13/19 at 10:31; Status DC Potassium Phosphate 20 mmol/ Sodium Chloride 106.6667 ml @ 51.667 m... 1X ONCE IV Last administered on 07/13/19at 12:51; Start 07/13/19 at 13:00; Stop 07/13/19 at 15:03; Status DC Sodium Chloride 90 meq/Potassium Chloride 15 meq/ Potassium Phosphate 18 mmol/ Magnesium Sulfate 8 meq/Calcium Gluconate 15 meq/ Multivitamins 10 ml/Chromium/ Copper/Manganese/ Seleni/Zn 0.5 ml/ Total Parenteral Nutrition/Amino Acids/Dextrose/ Fat Emulsion Intravenous 1,400 ml @ 58.333 mls/ hr TPN CONT IV Last administered on 07/13/19at 22:16; Start 07/13/19 at 22:00; Stop 07/14/19 at 21:59; Status DC Potassium Chloride 20 meq/ Bicarbonate Dialysis Soln w/ out KCl 5,010 ml @ 1,000 mls/hr Q5H1M IV Last administered on 07/17/19at 14:54; Start 07/13/19 at 16:00; Stop 07/17/19 at 19:59; Status DC Multi-Ingred Cream/Lotion/Oil/ Oint (Artificial Tears Eye Ointment) 1 ramu PRN Q1HR PRN OU DRY EYE, 2nd choice Last administered on 08/01/19at 08:19; Start 07/13/19 at 17:30; Stop 09/21/19 at 14:39; Status DC Sodium Chloride 90 meq/Potassium Chloride 15 meq/ Potassium Phosphate 18 mmol/ Magnesium Sulfate 8 meq/Calcium Gluconate 15 meq/ Multivitamins 10 ml/Chromium/ Copper/Manganese/ Seleni/Zn 0.5 ml/ Total Parenteral Nutrition/Amino Acids/Dextrose/ Fat Emulsion Intravenous 1,400 ml @ 58.333 mls/ hr TPN CONT IV Last administered on 07/14/19at 22:00; Start 07/14/19 at 22:00; Stop 07/15/19 at 21:59; Status DC Albumin Human 500 ml @ 125 mls/hr 1X ONCE IV ; Start 07/14/19 at 14:15; Stop 07/14/19 at 18:14; Status DC Sodium Chloride 90 meq/Potassium Chloride 15 meq/ Potassium Phosphate 18 mmol/ Magnesium Sulfate 8 meq/Calcium Gluconate 15 meq/ Multivitamins 10 ml/Chromium/ Copper/Manganese/ Seleni/Zn 0.5 ml/ Insulin Human Regular 10 unit/ Total Parenteral Nutrition/Amino Acids/Dextrose/ Fat Emulsion Intravenous 1,400 ml @ 58.333 mls/ hr TPN CONT IV Last administered on 07/15/19at 21:43; Start at 22:00; Stop 07/16/19 at 21:59; Status DC Lidocaine HCl (Buffered Lidocaine 1%) 3 ml STK-MED ONCE .ROUTE ; Start 07/13/19 at 10:00; Stop 07/15/19 at 13:57; Status DC Midazolam HCl 100 mg/Sodium Chloride 100 ml @ 7 mls/hr CONT PRN IV SEE PROTOCOL Last administered on 07/27/19at 15:35; Start 07/16/19 at 16:00; Stop 09/21/19 at 14:38; Status DC Sodium Chloride 90 meq/Potassium Chloride 15 meq/ Potassium Phosphate 18 mmol/ Magnesium Sulfate 8 meq/Calcium Gluconate 15 meq/ Multivitamins 10 ml/Chromium/ Copper/Manganese/ Seleni/Zn 0.5 ml/ Insulin Human Regular 15 unit/ Total Parenteral Nutrition/Amino Acids/Dextrose/ Fat Emulsion Intravenous 1,400 ml @ 58.333 mls/ hr TPN CONT IV Last administered on 07/16/19at 20:34; Start 07/16/19 at 22:00; Stop 07/17/19 at 21:59; Status DC Info (Icu Electrolyte Protocol) 1 ea CONT PRN PRN MC PER PROTOCOL; Start 07/17/19 at 13:15 Sodium Chloride 90 meq/Potassium Chloride 15 meq/ Potassium Phosphate 18 mmol/ Magnesium Sulfate 8 meq/Calcium Gluconate 15 meq/ Multivitamins 10 ml/Chromium/ Copper/Manganese/ Seleni/Zn 0.5 ml/ Insulin Human Regular 15 unit/ Total Parenteral Nutrition/Amino Acids/Dextrose/ Fat Emulsion Intravenous 1,400 ml @ 58.333 mls/ hr TPN CONT IV Last administered on 07/17/19at 22:05; Start 07/17/19 at 22:00; Stop 07/18/19 at 21:59; Status DC Potassium Chloride 15 meq/ Bicarbonate Dialysis Soln w/ out KCl 5,007.5 ml @ 1,000 mls/ hr Q5H1M IV Last administered on 07/20/19at 18:14; Start 07/17/19 at 20:00; Stop 07/21/19 at 13:08; Status DC Potassium Chloride 15 meq/ Bicarbonate Dialysis Soln w/ out KCl 5,007.5 ml @ 1,000 mls/ hr Q5H1M IV Last administered on 07/20/19at 18:14; Start 07/17/19 at 20:00; Stop 07/21/19 at 13:08; Status DC Potassium Chloride 15 meq/ Bicarbonate Dialysis Soln w/ out KCl 5,007.5 ml @ 1,000 mls/ hr Q5H1M IV Last administered on 07/20/19at 18:14; Start 07/17/19 at 20:00; Stop 07/21/19 at 13:08; Status DC Iohexol (Omnipaque 240 Mg/ml) 30 ml 1X ONCE PO Last administered on 07/18/19at 11:30; Start 07/18/19 at 11:30; Stop 07/18/19 at 11:33; Status DC Info (CONTRAST GIVEN -- Rx MONITORING) 1 each PRN DAILY PRN MC SEE COMMENTS; Start 07/18/19 at 11:45; Stop 07/20/19 at 11:44; Status DC Sodium Chloride 90 meq/Potassium Chloride 15 meq/ Potassium Phosphate 18 mmol/ Magnesium Sulfate 8 meq/Calcium Gluconate 15 meq/ Multivitamins 10 ml/Chromium/ Copper/Manganese/ Seleni/Zn 0.5 ml/ Insulin Human Regular 15 unit/ Total Parenteral Nutrition/Amino Acids/Dextrose/ Fat Emulsion Intravenous 1,400 ml @ 58.333 mls/ hr TPN CONT IV Last administered on 07/18/19at 21:47; Start 07/18/19 at 22:00; Stop 07/19/19 at 21:59; Status DC Sodium Chloride 90 meq/Potassium Chloride 15 meq/ Potassium Phosphate 18 mmol/ Magnesium Sulfate 8 meq/Calcium Gluconate 15 meq/ Multivitamins 10 ml/Chromium/ Copper/Manganese/ Seleni/Zn 0.5 ml/ Insulin Human Regular 20 unit/ Total Parenteral Nutrition/Amino Acids/Dextrose/ Fat Emulsion Intravenous 1,400 ml @ 58.333 mls/ hr TPN CONT IV Last administered on 07/19/19at 21:36; Start 07/19/19 at 22:00; Stop 07/20/19 at 21:59; Status DC Alteplase, Recombinant (Cathflo For Central Catheter Clearance) 1 mg 1X ONCE INT CAT Last administered on 07/19/19at 20:03; Start 07/19/19 at 19:30; Stop 07/19/19 at 19:46; Status DC Alteplase, Recombinant (Cathflo For Central Catheter Clearance) 1 mg 1X ONCE INT CAT Last administered on 07/19/19at 22:05; Start 07/19/19 at 22:00; Stop 07/19/19 at 22:01; Status DC Sodium Chloride 90 meq/Potassium Chloride 15 meq/ Potassium Phosphate 18 mmol/ Magnesium Sulfate 8 meq/Calcium Gluconate 15 meq/ Multivitamins 10 ml/Chromium/ Copper/Manganese/ Seleni/Zn 0.5 ml/ Insulin Human Regular 20 unit/ Total Parenteral Nutrition/Amino Acids/Dextrose/ Fat Emulsion Intravenous 1,400 ml @ 58.333 mls/ hr TPN CONT IV Last administered on 07/20/19at 21:30; Start 07/20/19 at 22:00; Stop 07/21/19 at 21:59; Status DC Dexmedetomidine HCl 400 mcg/ Sodium Chloride 100 ml @ 0 mls/hr CONT PRN IV ANXIETY / AGITATION Last administered on 09/17/19at 12:57; Start 07/21/19 at 08:15; Stop 09/17/19 at 18:31; Status DC Sodium Chloride 500 ml @ 500 mls/hr 1X PRN PRN IV ELEVATED BP, SEE COMMENTS; Start 07/21/19 at 08:15 Atropine Sulfate (ATROPINE 0.5mg SYRINGE) 0.5 mg PRN Q5MIN PRN IV SEE COMMENTS; Start 07/21/19 at 08:15 Furosemide (Lasix) 20 mg 1X ONCE IVP Last administered on 07/21/19at 08:19; Start 07/21/19 at 08:15; Stop 07/21/19 at 08:16; Status DC Lidocaine HCl (Buffered Lidocaine 1%) 3 ml STK-MED ONCE .ROUTE ; Start 07/21/19 at 08:39; Stop 07/21/19 at 08:39; Status DC Lidocaine HCl (Buffered Lidocaine 1%) 6 ml 1X ONCE INJ Last administered on 07/21/19at 09:05; Start 07/21/19 at 09:00; Stop 07/21/19 at 09:06; Status DC Sodium Chloride 90 meq/Potassium Chloride 15 meq/ Potassium Phosphate 18 mmol/ Magnesium Sulfate 8 meq/Calcium Gluconate 15 meq/ Multivitamins 10 ml/Chromium/ Copper/Manganese/ Seleni/Zn 0.5 ml/ Insulin Human Regular 20 unit/ Total Parenteral Nutrition/Amino Acids/Dextrose/ Fat Emulsion Intravenous 1,400 ml @ 58.333 mls/ hr TPN CONT IV Last administered on 07/21/19at 22:45; Start 07/21/19 at 22:00; Stop 07/22/19 at 21:59; Status DC Sodium Chloride 1,000 ml @ 1,000 mls/hr Q1H PRN IV hypotension; Start 07/22/19 at 07:30; Stop 07/22/19 at 13:29; Status DC Albumin Human 200 ml @ 200 mls/hr 1X PRN PRN IV Hypotension Last administered on 07/22/19at 09:36; Start 07/22/19 at 07:30; Stop 07/22/19 at 13:29; Status DC Sodium Chloride (Normal Saline Flush) 10 ml 1X PRN PRN IV AP catheter pack; Start 07/22/19 at 07:30; Stop 07/22/19 at 21:29; Status DC Sodium Chloride (Normal Saline Flush) 10 ml 1X PRN PRN IV SHUTTLE FILLER catheter pack; Start 07/22/19 at 07:30; Stop 07/23/19 at 07:29; Status DC Sodium Chloride 1,000 ml @ 400 mls/hr Q2H30M PRN IV PATENCY; Start 07/22/19 at 07:30; Stop 07/22/19 at 19:29; Status DC Info (PHARMACY MONITORING -- do not chart) 1 each PRN DAILY PRN MC SEE COMMENTS; Start 07/22/19 at 07:30; Stop 07/22/19 at 13:02; Status DC Info (PHARMACY MONITORING -- do not chart) 1 each PRN DAILY PRN MC SEE COMME NTS; Start 07/22/19 at 07:30; Stop 07/24/19 at 12:45; Status DC Sodium Chloride 90 meq/Potassium Chloride 15 meq/ Potassium Phosphate 10 mmol/ Magnesium Sulfate 8 meq/Calcium Gluconate 15 meq/ Multivitamins 10 ml/Chromium/ Copper/Manganese/ Seleni/Zn 0.5 ml/ Insulin Human Regular 25 unit/ Total Parenteral Nutrition/Amino Acids/Dextrose/ Fat Emulsion Intravenous 1,400 ml @ 58.333 mls/ hr TPN CONT IV Last administered on 07/22/19at 22:19; Start 07/22/19 at 22:00; Stop 07/23/19 at 21:59; Status DC Heparin Sodium (Porcine) (Heparin Sodium) 5,000 unit Q12HR SQ Last administered on 08/14/19at 08:59; Start 07/22/19 at 21:00; Stop 08/14/19 at 10:05; Status DC Ondansetron HCl (Zofran) 4 mg PRN Q6HRS PRN IV NAUSEA/VOMITING; Start 07/25/19 at 07:00; Stop 07/26/19 at 06:59; Status DC Fentanyl Citrate (Fentanyl 2ml Vial) 25 mcg PRN Q5MIN PRN IV MILD PAIN 1-3; Start 07/25/19 at 07:00; Stop 07/26/19 at 06:59; Status DC Fentanyl Citrate (Fentanyl 2ml Vial) 50 mcg PRN Q5MIN PRN IV MODERATE TO SEVERE PAIN; Start 07/25/19 at 07:00; Stop 07/26/19 at 06:59; Status DC Ringer's Solution 1,000 ml @ 30 mls/hr Q24H IV ; Start 07/25/19 at 07:00; Stop 07/25/19 at 18:59; Status DC Lidocaine HCl (Xylocaine-Mpf 1% 2ml Vial) 2 ml PRN 1X PRN ID PRIOR TO IV START; Start 07/25/19 at 07:00; Stop 07/26/19 at 06:59; Status DC Prochlorperazine Edisylate (Compazine) 5 mg PACU PRN PRN IV NAUSEA, MRX1; Start 07/25/19 at 07:00; Stop 07/26/19 at 06:59; Status DC Sodium Chloride 1,000 ml @ 1,000 mls/hr Q1H PRN IV hypotension; Start 07/23/19 at 09:10; Stop 07/23/19 at 15:09; Status DC Albumin Human 200 ml @ 200 mls/hr 1X PRN PRN IV Hypotension Last administered on 07/23/19at 10:10; Start 07/23/19 at 09:15; Stop 07/23/19 at 15:14; Status DC Sodium Chloride 1,000 ml @ 400 mls/hr Q2H30M PRN IV PATENCY; Start 07/23/19 at 09:10; Stop 07/23/19 at 21:09; Status DC Info (PHARMACY MONITORING -- do not chart) 1 each PRN DAILY PRN MC SEE PIPE TS; Start 07/23/19 at 09:15; Stop 07/24/19 at 12:45; Status DC Info (PHARMACY MONITORING -- do not chart) 1 each PRN DAILY PRN MC SEE COMMENTS; Start 07/23/19 at 09:15; Stop 07/24/19 at 12:45; Status DC Sodium Chloride 90 meq/Potassium Chloride 15 meq/ Potassium Phosphate 10 mmol/ Magnesium Sulfate 8 meq/Calcium Gluconate 15 meq/ Multivitamins 10 ml/Chromium/ Copper/Manganese/ Seleni/Zn 0.5 ml/ Insulin Human Regular 25 unit/ Total Parenteral Nutrition/Amino Acids/Dextrose/ Fat Emulsion Intravenous 1,400 ml @ 58.333 mls/ hr TPN CONT IV Last administered on 07/23/19at 22:10; Start 07/23/19 at 22:00; Stop 07/24/19 at 21:59; Status DC Magnesium Sulfate 50 ml @ 25 mls/hr PRN DAILY PRN IV for Mag < 1.7 on am labs Last administered on 10/06/19at 10:57; Start 07/24/19 at 09:15 Sodium Chloride 90 meq/Potassium Chloride 15 meq/ Potassium Phosphate 10 mmol/ Magnesium Sulfate 8 meq/Calcium Gluconate 15 meq/ Multivitamins 10 ml/Chromium/ Copper/Manganese/ Seleni/Zn 0.5 ml/ Insulin Human Regular 25 unit/ Total Parenteral Nutrition/Amino Acids/Dextrose/ Fat Emulsion Intravenous 1,400 ml @ 58.333 mls/ hr TPN CONT IV Last administered on 07/24/19at 21:20; Start 07/24/19 at 22:00; Stop 07/25/19 at 21:59; Status DC Sodium Chloride 1,000 ml @ 1,000 mls/hr Q1H PRN IV hypotension; Start 07/24/19 at 12:23; Stop 07/24/19 at 18:22; Status DC Albumin Human 200 ml @ 200 mls/hr 1X ONCE IV Last administered on 07/24/19at 13:34; Start 07/24/19 at 12:30; Stop 07/24/19 at 13:29; Status DC Diphenhydramine HCl (Benadryl) 25 mg 1X PRN PRN IV ITCHING; Start 07/24/19 at 12:30; Stop 07/25/19 at 12:29; Status DC Diphenhydramine HCl (Benadryl) 25 mg 1X PRN PRN IV ITCHING; Start 07/24/19 at 12:30; Stop 07/25/19 at 12:29; Status DC Info (PHARMACY MONITORING -- do not chart) 1 each PRN DAILY PRN MC SEE CO MMENTS; Start 07/24/19 at 12:30; Status Cancel Bupivacaine HCl/ Epinephrine Bitart (Sensorcain-Epi 0.5%-1:[id number] Mpf) 30 ml STK-MED ONCE .ROUTE Last administered on 07/25/19at 11:44; Start 07/25/19 at 11:00; Stop 07/25/19 at 11:01; Status DC Cellulose (Surgicel Fibrillar 1x2) 1 each STK-MED ONCE .ROUTE ; Start 07/25/19 at 11:00; Stop 07/25/19 at 11:01; Status DC Sodium Chloride 90 meq/Potassium Chloride 15 meq/ Potassium Phosphate 10 mmol/ Magnesium Sulfate 12 meq/Calcium Gluconate 15 meq/ Multivitamins 10 ml/Chromium/ Copper/Manganese/ Seleni/Zn 0.5 ml/ Insulin Human Regular 25 unit/ Total Parenteral Nutrition/Amino Acids/Dextrose/ Fat Emulsion Intravenous 1,400 ml @ 58.333 mls/ hr TPN CONT IV Last administered on 07/25/19at 22:24; Start 07/25/19 at 22:00; Stop 07/26/19 at 21:59; Status DC Propofol 20 ml @ As Directed STK-MED ONCE IV ; Start 07/25/19 at 11:07; Stop 07/25/19 at 11:07; Status DC Cellulose (Surgicel Hemostat 4x8) 1 each STK-MED ONCE .ROUTE Last administered on 07/25/19at 11:44; Start 07/25/19 at 11:55; Stop 07/25/19 at 11:56; Status DC Sevoflurane (Ultane) 60 ml STK-MED ONCE IH ; Start 07/25/19 at 12:46; Stop 07/25/19 at 12:46; Status DC Sodium Chloride 1,000 ml @ 1,000 mls/hr Q1H PRN IV hypotension; Start 07/25/19 at 13:51; Stop 07/25/19 at 19:50; Status DC Albumin Human 200 ml @ 200 mls/hr 1X PRN PRN IV Hypotension Last administered on 07/25/19at 14:51; Start 07/25/19 at 14:00; Stop 07/25/19 at 19:59; Status DC Diphenhydramine HCl (Benadryl) 25 mg 1X PRN PRN IV ITCHING; Start 07/25/19 at 14:00; Stop 07/26/19 at 13:59; Status DC Diphenhydramine HCl (Benadryl) 25 mg 1X PRN PRN IV ITCHING; Start 07/25/19 at 14:00; Stop 07/26/19 at 13:59; Status DC Sodium Chloride 1,000 ml @ 400 mls/hr Q2H30M PRN IV PATENCY; Start 07/25/19 at 13:51; Stop 07/26/19 at 01:50; Status DC Info (PHARMACY MONITORING -- do not chart) 1 each PRN DAILY PRN MC SEE COMMENTS; Start 07/25/19 at 14:00; Stop 07/28/19 at 08:16; Status DC Heparin Sodium (Porcine) (Hep Lock Adult) 500 unit STK-MED ONCE IVP ; Start 07/26/19 at 09:29; Stop 07/26/19 at 09:30; Status DC Sodium Chloride 1,000 ml @ 1,000 mls/hr Q1H PRN IV hypotension; Start 07/26/19 at 10:43; Stop 07/26/19 at 16:42; Status DC Sodium Chloride 1,000 ml @ 400 mls/hr Q2H30M PRN IV PATENCY; Start 07/26/19 at 10:43; Stop 07/26/19 at 22:42; Status DC Info (PHARMACY MONITORING -- do not chart) 1 each PRN DAILY PRN MC SEE COMMENTS; Start 07/26/19 at 10:45; Status UNV Info (PHARMACY MONITORING -- do not chart) 1 each PRN DAILY PRN MC SEE COMMENTS; Start 07/26/19 at 10:45; Status UNV Sodium Chloride 90 meq/Potassium Chloride 15 meq/ Magnesium Sulfate 12 meq/Calcium Gluconate 15 meq/ Multivitamins 10 ml/Chromium/ Copper/Manganese/ Seleni/Zn 0.5 ml/ Insulin Human Regular 25 unit/ Total Parenteral Nutrition/Amino Acids/Dextrose/ Fat Emulsion Intravenous 1,400 ml @ 58.333 mls/ hr TPN CONT IV Last administered on 07/26/19at 22:13; Start 07/26/19 at 22:00; Stop 07/27/19 at 21:59; Status DC Sodium Chloride 1,000 ml @ 1,000 mls/hr Q1H PRN IV hypotension; Start 07/27/19 at 07:50; Stop 07/27/19 at 13:49; Status DC Albumin Human 200 ml @ 200 mls/hr 1X ONCE IV ; Start 07/27/19 at 08:00; Stop 07/27/19 at 08:53; Status DC Diphenhydramine HCl (Benadryl) 25 mg 1X PRN PRN IV ITCHING; Start 07/27/19 at 08:00; Stop 07/28/19 at 07:59; Status DC Diphenhydramine HCl (Benadryl) 25 mg 1X PRN PRN IV ITCHING; Start 07/27/19 at 08:00; Stop 07/28/19 at 07:59; Status DC Info (PHARMACY MONITORING -- do not chart) 1 each PRN DAILY PRN MC SEE COMMENTS; Start 07/27/19 at 08:00; Stop 07/28/19 at 08:16; Status DC Albumin Human 50 ml @ 50 mls/hr 1X ONCE IV ; Start 07/27/19 at 08:53; Stop 07/27/19 at 08:56; Status DC Albumin Human 200 ml @ 50 mls/hr PRN 1X PRN IV HYPOTENSION Last administered on 08/02/19at 11:54; Start 07/27/19 at 09:00; Stop 09/08/19 at 11:14; Status DC Meropenem 500 mg/ Sodium Chloride 50 ml @ 100 mls/hr Q12H IV Last administered on 08/16/19at 10:45; Start 07/27/19 at 10:00; Stop 08/16/19 at 12:37; Status DC Sodium Chloride 90 meq/Magnesium Sulfate 12 meq/ Calcium Gluconate 15 meq/ Multivitamins 10 ml/Chromium/ Copper/Manganese/ Seleni/Zn 0.5 ml/ Insulin Human Regular 25 unit/ Total Parenteral Nutrition/Amino Acids/Dextrose/ Fat Emulsion Intravenous 1,400 ml @ 58.333 mls/ hr TPN CONT IV Last administered on 07/27/19at 21:41; Start 07/27/19 at 22:00; Stop 07/28/19 at 21:59; Status DC Sodium Chloride 1,000 ml @ 1,000 mls/hr Q1H PRN IV hypotension; Start 07/28/19 at 07:58; Stop 07/28/19 at 13:57; Status DC Albumin Human 200 ml @ 200 mls/hr 1X PRN PRN IV Hypotension Last administered on 07/28/19at 09:30; Start 07/28/19 at 08:00; Stop 07/28/19 at 13:59; Status DC Sodium Chloride 1,000 ml @ 400 mls/hr Q2H30M PRN IV PATENCY; Start 07/28/19 at 07:58; Stop 07/28/19 at 19:57; Status DC Info (PHARMACY MONITORING -- do not chart) 1 each PRN DAILY PRN MC SEE COMMENTS; Start 07/28/19 at 08:00; Status Cancel Info (PHARMACY MONITORING -- do not chart) 1 each PRN DAILY PRN MC SEE COMMENTS; Start 07/28/19 at 08:15; Status UNV Sodium Chloride 90 meq/Potassium Phosphate 5 mmol/ Magnesium Sulfate 12 meq/Calcium Gluconate 15 meq/ Multivitamins 10 ml/Chromium/ Copper/Manganese/ Seleni/Zn 0.5 ml/ Insulin Human Regular 30 unit/ Total Parenteral Nutrition/Amino Acids/Dextrose/ Fat Emulsion Intravenous 1,400 ml @ 58.333 mls/ hr TPN CONT IV Last administered on 07/28/19at 22:08; Start 07/28/19 at 22:00; Stop 07/29/19 at 21:59; Status DC Linezolid/Dextrose 300 ml @ 300 mls/hr Q12HR IV Last administered on 08/08/19at 20:40; Start 07/29/19 at 11:00; Stop 08/09/19 at 08:10; Status DC Sodium Chloride 90 meq/Potassium Phosphate 15 mmol/ Magnesium Sulfate 12 meq/Calcium Gluconate 15 meq/ Multivitamins 10 ml/Chromium/ Copper/Manganese/ Seleni/Zn 0.5 ml/ Insulin Human Regular 30 unit/ Total Parenteral Nutrition/Amino Acids/Dextrose/ Fat Emulsion Intravenous 1,400 ml @ 58.333 mls/ hr TPN CONT IV Last administered on 07/29/19at 21:49; Start 07/29/19 at 22:00; Stop 07/30/19 at 21:59; Status DC Sodium Chloride 90 meq/Potassium Phosphate 15 mmol/ Magnesium Sulfate 12 meq/Calcium Gluconate 15 meq/ Multivitamins 10 ml/Chromium/ Copper/Manganese/ Seleni/Zn 0.5 ml/ Insulin Human Regular 40 unit/ Total Parenteral Nutrition/Amino Acids/Dextrose/ Fat Emulsion Intravenous 1,400 ml @ 58.333 mls/ hr TPN CONT IV Last administered on 07/30/19at 21:21; Start 07/30/19 at 22:00; Stop 07/31/19 at 21:59; Status DC Sodium Chloride 1,000 ml @ 1,000 mls/hr Q1H PRN IV hypotension; Start 07/30/19 at 13:26; Stop 07/30/19 at 19:25; Status DC Albumin Human 200 ml @ 200 mls/hr 1X PRN PRN IV Hypotension Last administered on 07/30/19at 15:00; Start 07/30/19 at 13:30; Stop 07/30/19 at 19:29; Status DC Sodium Chloride (Normal Saline Flush) 10 ml 1X PRN PRN IV AP catheter pack; Start 07/30/19 at 13:30; Stop 07/31/19 at 13:29; Status DC Sodium Chloride (Normal Saline Flush) 10 ml 1X PRN PRN IV SHUTTLE FILLER catheter pack; Start 07/30/19 at 13:30; Stop 07/31/19 at 13:29; Status DC Sodium Chloride 1,000 ml @ 400 mls/hr Q2H30M PRN IV PATENCY; Start 07/30/19 at 13:26; Stop 07/31/19 at 01:25; Status DC Info (PHARMACY MONITORING -- do not chart) 1 each PRN DAILY PRN MC SEE COMMENTS; Start 07/30/19 at 13:30; Stop 07/30/19 at 13:33; Status DC Info (PHARMACY MONITORING -- do not chart) 1 each PRN DAILY PRN MC SEE COMMENTS; Start 07/30/19 at 13:30; Stop 07/30/19 at 13:34; Status DC Sodium Chloride 90 meq/Potassium Phosphate 19 mmol/ Magnesium Sulfate 12 meq/Calcium Gluconate 15 meq/ Multivitamins 10 ml/Chromium/ Copper/Manganese/ Seleni/Zn 0.5 ml/ Insulin Human Regular 40 unit/ Total Parenteral Nutrition/Amino Acids/Dextrose/ Fat Emulsion Intravenous 1,400 ml @ 58.333 mls/ hr TPN CONT IV Last administered on 07/31/19at 21:54; Start 07/31/19 at 22:00; Stop 08/01/19 at 21:59; Status DC Sodium Chloride 1,000 ml @ 1,000 mls/hr Q1H PRN IV hypotension; Start 08/01/19 at 09:35; Stop 08/01/19 at 15:34; Status DC Albumin Human 200 ml @ 200 mls/hr 1X PRN PRN IV Hypotension; Start 08/01/19 at 09:45; Stop 08/01/19 at 15:44; Status DC Diphenhydramine HCl (Benadryl) 25 mg 1X PRN PRN IV ITCHING; Start 08/01/19 at 09:45; Stop 08/02/19 at 09:44; Status DC Diphenhydramine HCl (Benadryl) 25 mg 1X PRN PRN IV ITCHING; Start 08/01/19 at 09:45; Stop 08/02/19 at 09:44; Status DC Sodium Chloride 1,000 ml @ 400 mls/hr Q2H30M PRN IV PATENCY; Start 08/01/19 at 09:35; Stop 08/01/19 at 21:34; Status DC Info (PHARMACY MONITORING -- do not chart) 1 each PRN DAILY PRN MC SEE COMMENTS; Start 08/01/19 at 09:45; Status Cancel Sodium Chloride 100 meq/Potassium Phosphate 19 mmol/ Magnesium Sulfate 12 meq/Calcium Gluconate 15 meq/ Multivitamins 10 ml/Chromium/ Copper/Manganese/ Seleni/Zn 0.5 ml/ Insulin Human Regular 40 unit/ Potassium Chloride 20 meq/ Total Parenteral Nutrition/Amino Acids/Dextrose/ Fat Emulsion Intravenous 1,400 ml @ 58.333 mls/ hr TPN CONT IV Last administered on 08/01/19at 22:02; Start 08/01/19 at 22:00; Stop 08/02/19 at 21:59; Status DC Furosemide (Lasix) 40 mg 1X ONCE IVP Last administered on 08/01/19at 14:39; Start 08/01/19 at 14:30; Stop 08/01/19 at 14:31; Status DC Metronidazole 100 ml @ 100 mls/hr Q8HRS IV Last administered on 08/09/19at 06:04; Start 08/02/19 at 10:00; Stop 08/09/19 at 08:10; Status DC Sodium Chloride 1,000 ml @ 1,000 mls/hr Q1H PRN IV hypotension; Start 08/02/19 at 08:00; Stop 08/02/19 at 13:59; Status DC Albumin Human 200 ml @ 200 mls/hr 1X PRN PRN IV Hypotension; Start 08/02/19 at 08:00; Stop 08/02/19 at 13:59; Status DC Sodium Chloride 1,000 ml @ 400 mls/hr Q2H30M PRN IV PATENCY; Start 08/02/19 at 08:00; Stop 08/02/19 at 19:59; Status DC Info (PHARMACY MONITORING -- do not chart) 1 each PRN DAILY PRN MC SEE COMMENTS; Start 08/02/19 at 11:30; Status UNV Info (PHARMACY MONITORING -- do not chart) 1 each PRN DAILY PRN MC SEE COMMENTS; Start 08/02/19 at 11:30; Stop 08/04/19 at 12:13; Status DC Sodium Chloride 100 meq/Potassium Phosphate 19 mmol/ Magnesium Sulfate 12 meq/Calcium Gluconate 15 meq/ Multivitamins 10 ml/Chromium/ Copper/Manganese/ Seleni/Zn 0.5 ml/ Insulin Human Regular 40 unit/ Potassium Chloride 20 meq/ Total Parenteral Nutrition/Amino Acids/Dextrose/ Fat Emulsion Intravenous 1,400 ml @ 58.333 mls/ hr TPN CONT IV Last administered on 08/02/19at 21:52; Start 08/02/19 at 22:00; Stop 08/03/19 at 21:59; Status DC Sodium Chloride (Normal Saline Flush) 10 ml QSHIFT PRN IV AFTER MEDS AND BLOOD DRAWS; Start 08/02/19 at 15:00; Stop 08/30/19 at 11:27; Status DC Sodium Chloride (Normal Saline Flush) 10 ml PRN Q5MIN PRN IV AFTER MEDS AND BLOOD DRAWS; Start 08/02/19 at 15:00 Sodium Chloride (Normal Saline Flush) 20 ml PRN Q5MIN PRN IV AFTER MEDS AND BLOOD DRAWS; Start 08/02/19 at 15:00 Sodium Chloride 100 meq/Potassium Phosphate 19 mmol/ Magnesium Sulfate 12 meq/Ca lcium Gluconate 15 meq/ Multivitamins 10 ml/Chromium/ Copper/Manganese/ Seleni/Zn 0.5 ml/ Insulin Human Regular 40 unit/ Potassium Chloride 20 meq/ Total Parenteral Nutrition/Amino Acids/Dextrose/ Fat Emulsion Intravenous 1,400 ml @ 58.333 mls/ hr TPN CONT IV Last administered on 08/03/19at 21:20; Start 08/03/19 at 22:00; Stop 08/04/19 at 21:59; Status DC Lidocaine HCl (Buffered Lidocaine 1%) 3 ml STK-MED ONCE .ROUTE ; Start 08/03/19 at 13:16; Stop 08/03/19 at 13:16; Status DC Lidocaine HCl (Buffered Lidocaine 1%) 6 ml 1X ONCE INJ Last administered on 08/03/19at 13:45; Start 08/03/19 at 13:30; Stop 08/03/19 at 13:31; Status DC Albumin Human 100 ml @ 100 mls/hr 1X ONCE IV Last administered on 08/03/19at 15:41; Start 08/03/19 at 15:00; Stop 08/03/19 at 15:59; Status DC Albumin Human 50 ml @ 50 mls/hr 1X ONCE IV Last administered on 08/03/19at 15:00; Start 08/03/19 at 15:00; Stop 08/03/19 at 15:59; Status DC Info (PHARMACY MONITORING -- do not chart) 1 each PRN DAILY PRN MC SEE COMMENTS; Start 08/04/19 at 11:30; Status Cancel Info (PHARMACY MONITORING -- do not chart) 1 each PRN DAILY PRN MC SEE COMMENTS; Start 08/04/19 at 11:30; Status UNV Sodium Chloride 100 meq/Potassium Phosphate 10 mmol/ Magnesium Sulfate 12 meq/Calcium Gluconate 15 meq/ Multivitamins 10 ml/Chromium/ Copper/Manganese/ Seleni/Zn 0.5 ml/ Insulin Human Regular 35 unit/ Potassium Chloride 20 meq/ Total Parenteral Nutrition/Amino Acids/Dextrose/ Fat Emulsion Intravenous 1,400 ml @ 58.333 mls/ hr TPN CONT IV Last administered on 08/04/19at 22:10; Start 08/04/19 at 22:00; Stop 08/05/19 at 21:59; Status DC Sodium Chloride 100 meq/Potassium Phosphate 5 mmol/ Magnesium Sulfate 12 meq/Calcium Gluconate 15 meq/ Multivitamins 10 ml/Chromium/ Copper/Manganese/ Seleni/Zn 0.5 ml/ Insulin Human Regular 35 unit/ Potassium Chloride 20 meq/ Total Parenteral Nutrition/Amino Acids/Dextrose/ Fat Emulsion Intravenous 1,400 ml @ 58.333 mls/ hr TPN CONT IV Last administered on 08/05/19at 22:59; Start 08/05/19 at 22:00; Stop 08/06/19 at 21:59; Status DC Sodium Chloride 1,000 ml @ 1,000 mls/hr Q1H PRN IV hypotension; Start 08/06/19 at 08:27; Stop 08/06/19 at 14:26; Status DC Albumin Human 200 ml @ 200 mls/hr 1X PRN PRN IV Hypotension Last administered on 08/06/19at 09:18; Start 08/06/19 at 08:30; Stop 08/06/19 at 14:29; Status DC Sodium Chloride 1,000 ml @ 400 mls/hr Q2H30M PRN IV PATENCY; Start 08/06/19 at 08:27; Stop 08/06/19 at 20:26; Status DC Info (PHARMACY MONITORING -- do not chart) 1 each PRN DAILY PRN MC SEE COMMENTS; Start 08/06/19 at 08:30; Status Cancel Info (PHARMACY MONITORING -- do not chart) 1 each PRN DAILY PRN MC SEE COMMENTS; Start 08/06/19 at 08:30; Stop 08/14/19 at 13:10; Status DC Sodium Chloride 100 meq/Potassium Chloride 40 meq/ Magnesium Sulfate 15 meq/Calcium Gluconate 15 meq/ Multivitamins 10 ml/Chromium/ Copper/Manganese/ Seleni/Zn 0.5 ml/ Insulin Human Regular 35 unit/ Total Parenteral Nutri tion/Amino Acids/Dextrose/ Fat Emulsion Intravenous 1,400 ml @ 58.333 mls/ hr TPN CONT IV Last administered on 08/06/19at 22:00; Start 08/06/19 at 22:00; Stop 08/07/19 at 21:59; Status DC Potassium Chloride/Water 100 ml @ 100 mls/hr 1X ONCE IV Last administered on 08/06/19at 17:28; Start 08/06/19 at 14:45; Stop 08/06/19 at 15:44; Status DC Sodium Chloride 100 meq/Potassium Chloride 40 meq/ Magnesium Sulfate 15 meq/Calcium Gluconate 15 meq/ Multivitamins 10 ml/Chromium/ Copper/Manganese/ Seleni/Zn 0.5 ml/ Insulin Human Regular 35 unit/ Total Parenteral Nutrition/Amino Acids/Dextrose/ Fat Emulsion Intravenous 1,400 ml @ 58.333 mls/ hr TPN CONT IV Last administered on 08/07/19at 22:46; Start 08/07/19 at 22:00; Stop 08/08/19 at 21:59; Status DC Sodium Chloride 100 meq/Potassium Chloride 40 meq/ Magnesium Sulfate 20 meq/Calcium Gluconate 15 meq/ Multivitamins 10 ml/Chromium/ Copper/Manganese/ Seleni/Zn 0.5 ml/ Insulin Human Regular 35 unit/ Total Parenteral Nutrition/Amino Acids/Dextrose/ Fat Emulsion Intravenous 1,400 ml @ 58.333 mls/ hr TPN CONT IV Last administered on 08/08/19at 22:31; Start 08/08/19 at 22:00; Stop 08/09/19 at 21:59; Status DC Fentanyl Citrate (Fentanyl 2ml Vial) 50 mcg PRN Q2HR PRN IVP PAIN Last administered on 08/15/19at 13:32; Start 08/08/19 at 21:00; Stop 08/16/19 at 12:53; Status DC Fentanyl Citrate (Fentanyl 2ml Vial) 25 mcg PRN Q2HR PRN IVP PAIN; Start 08/08/19 at 21:00; Stop 08/16/19 at 12:54; Status DC Enoxaparin Sodium (Lovenox 100mg Syringe) 100 mg Q12HR SQ ; Start 08/09/19 at 21:00; Status UNV Amino Acids/ Glycerin/ Electrolytes 1,000 ml @ 75 mls/hr [id number] IV ; Start 08/08/19 at 21:15; Status UNV Sodium Chloride 1,000 ml @ 1,000 mls/hr Q1H PRN IV hypotension; Start 08/09/19 at 07:56; Stop 08/09/19 at 13:55; Status DC Albumin Human 200 ml @ 200 mls/hr 1X PRN PRN IV Hypotension Last administered on 08/09/19at 08:40; Start 08/09/19 at 08:00; Stop 08/09/19 at 13:59; Status DC Sodium Chloride 1,000 ml @ 400 mls/hr Q2H30M PRN IV PATENCY; Start 08/09/19 at 07:56; Stop 08/09/19 at 19:55; Status DC Info (PHARMACY MONITORING -- do not chart) 1 each PRN DAILY PRN MC SEE COMMENTS; Start 08/09/19 at 08:00; Status UNV Info (PHARMACY MONITORING -- do not chart) 1 each PRN DAILY PRN MC SEE COMMENTS; Start 08/09/19 at 08:00; Status UNV Daptomycin 430 mg/ Sodium Chloride 50 ml @ 100 mls/hr Q24H IV Last administered on 08/09/19at 12:35; Start 08/09/19 at 09:00; Stop 08/09/19 at 12:49; Status DC Sodium Chloride 100 meq/Potassium Chloride 40 meq/ Magnesium Sulfate 20 meq/Calcium Gluconate 15 meq/ Multivitamins 10 ml/Chromium/ Copper/Manganese/ Seleni/Zn 0.5 ml/ Insulin Human Regular 35 unit/ Total Parenteral Nutrition/Amino Acids/Dextrose/ Fat Emulsion Intravenous 1,400 ml @ 58.333 mls/ hr TPN CONT IV Last administered on 08/09/19at 21:26; Start 08/09/19 at 22:00; Stop 08/10/19 at 21:59; Status DC Daptomycin 430 mg/ Sodium Chloride 50 ml @ 100 mls/hr Q48H IV ; Start 08/11/19 at 09:00; Stop 08/10/19 at 11:55; Status DC Sodium Chloride 100 meq/Potassium Chloride 40 meq/ Magnesium Sulfate 20 meq/Calcium Gluconate 15 meq/ Multivitamins 10 ml/Chromium/ Copper/Manganese/ Seleni/Zn 0.5 ml/ Insulin Human Regular 35 unit/ Total Parenteral Nutrition/Amino Acids/Dextrose/ Fat Emulsion Intravenous 1,400 ml @ 58.333 mls/ hr TPN CONT IV Last administered on 08/10/19at 22:27; Start 08/10/19 at 22:00; Stop 08/11/19 at 21:59; Status DC Daptomycin 430 mg/ Sodium Chloride 50 ml @ 100 mls/hr Q24H IV Last administered on 08/12/19at 15:07; Start 08/10/19 at 13:00; Stop 08/13/19 at 13:15; Status DC Sodium Chloride 100 meq/Potassium Chloride 40 meq/ Magnesium Sulfate 20 meq/Calcium Gluconate 10 meq/ Multivitamins 10 ml/Chromium/ Copper/Manganese/ Seleni/Zn 0.5 ml/ Insulin Human Regular 35 unit/ Total Parenteral Nutrition/Amino Acids/Dextrose/ Fat Emulsion Intravenous 1,400 ml @ 58.333 mls/ hr TPN CONT IV Last administered on 08/12/19at 00:06; Start 08/11/19 at 22:00; Stop 08/12/19 at 21:59; Status DC Alteplase, Recombinant (Cathflo For Central Catheter Clearance) 1 mg 1X ONCE INT CAT Last administered on 08/12/19at 11:44; Start 08/12/19 at 10:45; Stop 08/12/19 at 10:46; Status DC Ondansetron HCl (Zofran) 4 mg PRN Q6HRS PRN IV NAUSEA/VOMITING; Start 08/15/19 at 07:00; Stop 08/16/19 at 06:59; Status DC Fentanyl Citrate (Fentanyl 2ml Vial) 25 mcg PRN Q5MIN PRN IV MILD PAIN 1-3; Start 08/15/19 at 07:00; Stop 08/16/19 at 06:59; Status DC Fentanyl Citrate (Fentanyl 2ml Vial) 50 mcg PRN Q5MIN PRN IV MODERATE TO SEVERE PAIN Last administered on 08/15/19at 10:17; Start 08/15/19 at 07:00; Stop 0 at 06:59; Status DC Ringer's Solution 1,000 ml @ 30 mls/hr Q24H IV ; Start 08/15/19 at 07:00; Stop 08/15/19 at 18:59; Status DC Lidocaine HCl (Xylocaine-Mpf 1% 2ml Vial) 2 ml PRN 1X PRN ID PRIOR TO IV START; Start 08/15/19 at 07:00; Stop 08/16/19 at 06:59; Status DC Prochlorperazine Edisylate (Compazine) 5 mg PACU PRN PRN IV NAUSEA, MRX1; Start 08/15/19 at 07:00; Stop 08/16/19 at 06:59; Status DC Sodium Acetate 50 meq/Potassium Acetate 55 meq/ Magnesium Sulfate 20 meq/Calcium Gluconate 10 meq/ Multivitamins 10 ml/Chromium/ Copper/Manganese/ Seleni/Zn 0.5 ml/ Insulin Human Regular 35 unit/ Total Parenteral Nutrition/Amino Ac ids/Dextrose/ Fat Emulsion Intravenous 1,400 ml @ 58.333 mls/ hr TPN CONT IV ; Start 08/12/19 at 22:00; Stop 08/12/19 at 14:15; Status DC Sodium Acetate 50 meq/Potassium Acetate 55 meq/ Magnesium Sulfate 20 meq/Calcium Gluconate 10 meq/ Multivitamins 10 ml/Chromium/ Copper/Manganese/ Seleni/Zn 0.5 ml/ Insulin Human Regular 35 unit/ Total Parenteral Nutrition/Amino Acids/Dextrose/ Fat Emulsion Intravenous 1,800 ml @ 75 mls/hr TPN CONT IV Last administered on 08/12/19at 22:38; Start 08/12/19 at 22:00; Stop 08/13/19 at 21:59; Status DC Sodium Chloride 1,000 ml @ 1,000 mls/hr Q1H PRN IV hypotension; Start 08/12/19 at 15:31; Stop 08/12/19 at 21:30; Status DC Diphenhydramine HCl (Benadryl) 25 mg 1X PRN PRN IV ITCHING; Start 08/12/19 at 15:45; Stop 08/13/19 at 15:44; Status DC Diphenhydramine HCl (Benadryl) 25 mg 1X PRN PRN IV ITCHING; Start 08/12/19 at 15:45; Stop 08/13/19 at 15:44; Status DC Sodium Chloride 1,000 ml @ 400 mls/hr Q2H30M PRN IV PATENCY; Start 08/12/19 at 15:31; Stop 08/13/19 at 03:30; Status DC Info (PHARMACY MONITORING -- do not chart) 1 each PRN DAILY PRN MC SEE COMMENTS; Start 08/12/19 at 15:45; Stop 09/13/19 at 14:14; Status DC Sodium Acetate 50 meq/Potassium Acetate 55 meq/ Magnesium Sulfate 20 meq/Calcium Gluconate 10 meq/ Multivitamins 10 ml/Chromium/ Copper/Manganese/ Seleni/Zn 0.5 ml/ Insulin Human Regular 35 unit/ Total Parenteral Nutrition/Amino Aci ds/Dextrose/ Fat Emulsion Intravenous 1,800 ml @ 75 mls/hr TPN CONT IV Last administered on 08/13/19at 22:03; Start 08/13/19 at 22:00; Stop 08/14/19 at 21:59; Status DC Daptomycin 430 mg/ Sodium Chloride 50 ml @ 100 mls/hr Q24H IV Last administered on 08/18/19at 13:00; Start 08/13/19 at 13:00; Stop 08/18/19 at 20:58; Status DC Heparin Sodium (Porcine) 1000 unit/Sodium Chloride 1,001 ml @ 1,001 mls/hr 1X ONCE IRR ; Start 08/15/19 at 06:00; Stop 08/15/19 at 06:59; Status DC Potassium Acetate 55 meq/Magnesium Sulfate 20 meq/ Calcium Gluconate 10 meq/ Multivitamins 10 ml/Chromium/ Copper/Manganese/ Seleni/Zn 0.5 ml/ Insulin Human Regular 35 unit/ Total Parenteral Nutrition/Amino Acids/Dextrose/ Fat Emulsion Intravenous 1,920 ml @ 80 mls/hr TPN CONT IV Last administered on 08/14/19at 22:10; Start 08/14/19 at 22:00; Stop 08/15/19 at 21:59; Status DC Dexamethasone Sodium Phosphate (Decadron) 4 mg STK-MED ONCE .ROUTE ; Start 08/15/19 at 10:56; Stop 08/15/19 at 10:57; Status DC Ondansetron HCl (Zofran) 4 mg STK-MED ONCE .ROUTE ; Start 08/15/19 at 10:56; Stop 08/15/19 at 10:57; Status DC Rocuronium [place] (Zemuron) 50 mg STK-MED ONCE .ROUTE ; Start 08/15/19 at 10:56; Stop 08/15/19 at 10:57; Status DC Fentanyl Citrate (Fentanyl 2ml Vial) 100 mcg STK-MED ONCE .ROUTE ; Start 08/15/19 at 10:56; Stop 08/15/19 at 10:57; Status DC Bupivacaine HCl/ Epinephrine Bitart (Sensorcain-Epi 0.5%-1:[id number] Mpf) 30 ml STK-MED ONCE .ROUTE Last administered on 08/15/19at 12:01; Start 08/15/19 at 10:58; Stop 08/15/19 at 10:58; Status DC Cellulose (Surgicel Hemostat 2x14) 1 each STK-MED ONCE .ROUTE ; Start 08/15/19 at 10:58; Stop 08/15/19 at 10:59; Status DC Iohexol (Omnipaque 300 Mg/ml) 50 ml STK-MED ONCE .ROUTE ; Start 08/15/19 at 10:58; Stop 08/15/19 at 10:59; Status DC Cellulose (Surgicel Hemostat 4x8) 1 each STK-MED ONCE .ROUTE ; Start 08/15/19 at 10:58; Stop 08/15/19 at 10:59; Status DC Bisacodyl (Dulcolax Supp) 10 mg STK-MED ONCE .ROUTE ; Start 08/15/19 at 10:59; Stop 08/15/19 at 10:59; Status DC Heparin Sodium (Porcine) 1000 unit/Sodium Chloride 1,001 ml @ 1,001 mls/hr 1X ONCE IRR ; Start 08/15/19 at 12:00; Stop 08/15/19 at 12:59; Status DC Propofol 20 ml @ As Directed STK-MED ONCE IV ; Start 08/15/19 at 11:05; Stop 08/15/19 at 11:05; Status DC Sevoflurane (Ultane) 90 ml STK-MED ONCE IH ; Start 08/15/19 at 11:05; Stop 08/15/19 at 11:05; Status DC Sevoflurane (Ultane) 60 ml STK-MED ONCE IH ; Start 08/15/19 at 12:26; Stop 08/15/19 at 12:27; Status DC Propofol 20 ml @ As Directed STK-MED ONCE IV ; Start 08/15/19 at 12:26; Stop 08/15/19 at 12:27; Status DC Phenylephrine HCl (PHENYLEPHRINE in 0.9% NACL PF) 1 mg STK-MED ONCE IV ; Start 08/15/19 at 12:34; Stop 08/15/19 at 12:34; Status DC Heparin Sodium (Porcine) (Heparin Sodium) 5,000 unit Q12HR SQ Last administered on 08/24/19at 20:57; Start 08/15/19 at 21:00; Stop 08/25/19 at 09:59; Status DC Sodium Chloride (Normal Saline Flush) 3 ml QSHIFT PRN IV AFTER MEDS AND BLOOD DRAWS; Start 08/15/19 at 13:45 Naloxone HCl (Narcan) 0.4 mg PRN Q2MIN PRN IV SEE INSTRUCTIONS Last administered on 09/24/19at 15:15; Start 08/15/19 at 13:45 Sodium Chloride 1,000 ml @ 25 mls/hr Q24H IV Last administered on 09/13/19at 13:37; Start 08/15/19 at 13:37; Stop 09/16/19 at 13:09; Status DC Naloxone HCl (Narcan) 0.4 mg PRN Q2MIN PRN IV SEE INSTRUCTIONS; Start 08/15/19 at 14:30; Status UNV Sodium Chloride 1,000 ml @ 25 mls/hr Q24H IV ; Start 08/15/19 at 14:30; Status UNV Hydromorphone HCl 30 ml @ 0 mls/hr CONT PRN PRN IV PER PROTOCOL Last administered on 08/20/19at 16:08; Start 08/15/19 at 14:30; Stop 08/22/19 at 08:55; Status DC Potassium Acetate 55 meq/Magnesium Sulfate 20 meq/ Calcium Gluconate 10 meq/ Multivitamins 10 ml/Chromium/ Copper/Manganese/ Seleni/Zn 0.5 ml/ Insulin Human Regular 35 unit/ Total Parenteral Nutrition/Amino Acids/Dextrose/ Fat Emulsion Intravenous 1,920 ml @ 80 mls/hr TPN CONT IV Last administered on 08/15/19at 22:01; Start 08/15/19 at 22:00; Stop 08/16/19 at 21:59; Status DC Bumetanide (Bumex) 2 mg [id number] IV Last administered on 08/19/19at 13:50; Start 08/16/19 at 14:00; Stop 08/20/19 at 14:10; Status DC Meropenem 1 gm/ Sodium Chloride 100 ml @ 200 mls/hr Q8HRS IV Last administered on 09/09/19at 05:53; Start 08/16/19 at 14:00; Stop 09/09/19 at 09:31; Status DC Potassium Acetate 55 meq/Magnesium Sulfate 20 meq/ Calcium Gluconate 10 meq/ Multivitamins 10 ml/Chromium/ Copper/Manganese/ Seleni/Zn 0.5 ml/ Insulin Human Regular 35 unit/ Total Parenteral Nutrition/Amino Acids/Dextrose/ Fat Emulsion Intravenous 1,920 ml @ 80 mls/hr TPN CONT IV Last administered on 08/16/19at 22:02; Start 08/16/19 at 22:00; Stop 08/17/19 at 21:59; Status DC Hydromorphone HCl (Dilaudid Standard [employer]) 12 mg STK-MED ONCE IV ; Start 08/15/19 at 14:35; Stop 08/16/19 at 13:53; Status DC Artificial Tears (Artificial Tears) 1 drop PRN Q15MIN PRN OU DRY EYE Last administered on 10/03/19at 03:38; Start 08/17/19 at 05:30 Hydromorphone HCl (Dilaudid Standard [employer]) 12 mg STK-MED ONCE IV ; Start 08/16/19 at 12:05; Stop 08/17/19 at 09:15; Status DC Potassium Acetate 65 meq/Magnesium Sulfate 20 meq/ Calcium Gluconate 10 meq/ Multivitamins 10 ml/Chromium/ Copper/Manganese/ Seleni/Zn 0.5 ml/ Insulin Human Regular 30 unit/ Total Parenteral Nutrition/Amino Acids/Dextrose/ Fat Emulsion Intravenous 1,920 ml @ 80 mls/hr TPN CONT IV Last administered on 08/17/19at 22:22; Start 08/17/19 at 22:00; Stop 08/18/19 at 21:59; Status DC Cyclobenzaprine HCl (Flexeril) 10 mg PRN Q6HRS PRN PO MUSCLE SPASMS; Start 08/18/19 at 10:45 Potassium Acetate 55 meq/Magnesium Sulfate 20 meq/ Calcium Gluconate 10 meq/ Multivitamins 10 ml/Chromium/ Copper/Manganese/ Seleni/Zn 0.5 ml/ Insulin Human Regular 30 unit/ Total Parenteral Nutrition/Amino Acids/Dextrose/ Fat Emulsion Intravenous 1,920 ml @ 80 mls/hr TPN CONT IV Last administered on 08/19/19at 01:00; Start 08/18/19 at 22:00; Stop 08/19/19 at 21:59; Status DC Magnesium Sulfate 50 ml @ 25 mls/hr 1X ONCE IV Last administered on 08/18/19at 17:18; Start 08/18/19 at 12:45; Stop 08/18/19 at 14:44; Status DC Potassium Chloride/Water 100 ml @ 100 mls/hr 1X ONCE IV Last administered on 08/19/19at 11:27; Start 08/19/19 at 12:00; Stop 08/19/19 at 12:59; Status DC Hydromorphone HCl (Dilaudid Standard [employer]) 12 mg STK-MED ONCE IV ; Start 08/17/19 at 10:50; Stop 08/19/19 at 11:02; Status DC Hydromorphone HCl (Dilaudid Standard [employer]) 12 mg STK-MED ONCE IV ; Start 08/18/19 at 13:47; Stop 08/19/19 at 11:03; Status DC Potassium Acetate 30 meq/Magnesium Sulfate 20 meq/ Calcium Gluconate 10 meq/ Multivitamins 10 ml/Chromium/ Copper/Manganese/ Seleni/Zn 0.5 ml/ Insulin Human Regular 30 unit/ Potassium Chloride 30 meq/ Total Parenteral Nutrition/Amino Acids/Dextrose/ Fat Emulsion Intravenous 1,920 ml @ 80 mls/hr TPN CONT IV Last administered on 08/19/19at 22:34; Start 08/19/19 at 22:00; Stop 08/20/19 at 21:59; Status DC Potassium Chloride/Water 100 ml @ 100 mls/hr Q1H IV Last administered on 08/20/19at 13:05; Start 08/20/19 at 07:00; Stop 08/20/19 at 10:59; Status DC Magnesium Sulfate 50 ml @ 25 mls/hr 1X ONCE IV Last administered on 08/20/19at 10:34; Start 08/20/19 at 10:30; Stop 08/20/19 at 12:29; Status DC Potassium Chloride 75 meq/ Magnesium Sulfate 20 meq/Calcium Gluconate 10 meq/ Multivitamins 10 ml/Chromium/ Copper/Manganese/ Seleni/Zn 0.5 ml/ Insulin Human Regular 30 unit/ Total Parenteral Nutrition/Amino Acids/Dextrose/ Fat Emulsion Intravenous 1,920 ml @ 80 mls/hr TPN CONT IV Last administered on 08/20/19at 21:51; Start 08/20/19 at 22:00; Stop 08/21/19 at 22:00; Status DC Potassium Chloride 75 meq/ Magnesium Sulfate 20 meq/Calcium Gluconate 10 meq/ Multivitamins 10 ml/Chromium/ Copper/Manganese/ Seleni/Zn 0.5 ml/ Insulin Human Regular 25 unit/ Total Parenteral Nutrition/Amino Acids/Dextrose/ Fat Emulsion Intravenous 1,920 ml @ 80 mls/hr TPN CONT IV Last administered on 08/21/19at 22:04; Start 08/21/19 at 22:00; Stop 08/22/19 at 21:59; Status DC Hydromorphone HCl (Dilaudid) 0.4 mg PRN Q4HRS PRN IVP PAIN Last administered on 08/22/19at 10:57; Start 08/22/19 at 09:00; Stop 08/22/19 at 18:59; Status DC Micafungin Sodium 100 mg/Dextrose 100 ml @ 100 mls/hr Q24H IV Last administered on 09/13/19at 12:17; Start 08/22/19 at 11:00; Stop 09/14/19 at 09:59; Status DC Daptomycin 485 mg/ Sodium Chloride 50 ml @ 100 mls/hr Q24H IV Last administ ered on 08/29/19at 13:10; Start 08/22/19 at 11:00; Stop 08/30/19 at 07:44; Status DC Potassium Chloride 75 meq/ Magnesium Sulfate 15 meq/Calcium Gluconate 8 meq/ Multivitamins 10 ml/Chromium/ Copper/Manganese/ Seleni/Zn 0.5 ml/ Insulin Human Regular 25 unit/ Total Parenteral Nutrition/Amino Acids/Dextrose/ Fat Emulsion Intravenous 1,920 ml @ 80 mls/hr TPN CONT IV Last administered on 08/22/19at 23:08; Start 08/22/19 at 22:00; Stop 08/23/19 at 21:59; Status DC Haloperidol Lactate (Haldol Inj) 3 mg 1X ONCE IVP Last administered on 08/22/19at 14:37; Start 08/22/19 at 14:30; Stop 08/22/19 at 14:31; Status DC Hydromorphone HCl (Dilaudid) 1 mg PRN Q4HRS PRN IVP PAIN Last administered on 09/05/19at 06:25; Start 08/22/19 at 19:00; Stop 09/05/19 at 17:10; Status DC Potassium Chloride 75 meq/ Magnesium Sulfate 15 meq/Calcium Gluconate 8 meq/ Multivitamins 10 ml/Chromium/ Copper/Manganese/ Seleni/Zn 0.5 ml/ Insulin Human Regular 20 unit/ Total Parenteral Nutrition/Amino Acids/Dextrose/ Fat Emulsion Intravenous 1,920 ml @ 80 mls/hr TPN CONT IV Last administered on 08/23/19at 22:10; Start 08/23/19 at 22:00; Stop 08/24/19 at 21:59; Status DC Lidocaine HCl (Buffered Lidocaine 1%) 3 ml STK-MED ONCE .ROUTE ; Start 08/24/19 at 11:31; Stop 08/24/19 at 11:31; Status DC Lidocaine HCl (Buffered Lidocaine 1%) 3 ml STK-MED ONCE .ROUTE ; Start 08/24/19 at 12:28; Stop 08/24/19 at 12:29; Status DC Lidocaine HCl (Buffered Lidocaine 1%) 6 ml 1X ONCE INJ Last administered on 08/24/19at 12:53; Start 08/24/19 at 12:45; Stop 08/24/19 at 12:46; Status DC Potassium Chloride 75 meq/ Magnesium Sulfate 15 meq/Calcium Gluconate 8 meq/ Multivitamins 10 ml/Chromium/ Copper/Manganese/ Seleni/Zn 0.5 ml/ Insulin Human Regular 20 unit/ Total Parenteral Nutrition/Amino Acids/Dextrose/ Fat Emulsion Intravenous 1,920 ml @ 80 mls/hr TPN CONT IV Last administered on 08/24/19at 22:00; Start 08/24/19 at 22:00; Stop 08/25/19 at 21:59; Status DC Potassium Chloride 75 meq/ Magnesium Sulfate 15 meq/Calcium Gluconate 8 meq/ Multivitamins 10 ml/Chromium/ Copper/Manganese/ Seleni/Zn 0.5 ml/ Insulin Human Regular 15 unit/ Total Parenteral Nutrition/Amino Acids/Dextrose/ Fat Emulsion Intravenous 1,920 ml @ 80 mls/hr TPN CONT IV Last administered on 08/25/19at 22:28; Start 08/25/19 at 22:00; Stop 08/26/19 at 21:59; Status DC Vecuronium [place] (Norcuron Bolus) 6 mg PRN Q6HRS PRN IV VENT ASYNCHRONY; Start 08/25/19 at 19:15; Stop 08/25/19 at 19:35; Status DC Bumetanide (Bumex) 2 mg 1X ONCE IV Last administered on 08/25/19at 22:09; Start 08/25/19 at 19:45; Stop 08/25/19 at 19:46; Status DC Lidocaine HCl (Buffered Lidocaine 1%) 3 ml STK-MED ONCE .ROUTE ; Start 08/26/19 at 07:59; Stop 08/26/19 at 07:59; Status DC Midazolam HCl (Versed) 5 mg STK-MED ONCE .ROUTE ; Start 08/26/19 at 08:36; Stop 08/26/19 at 08:36; Status DC Fentanyl Citrate (Fentanyl 5ml Vial) 250 mcg STK-MED ONCE .ROUTE ; Start 08/26/19 at 08:36; Stop 08/26/19 at 08:37; Status DC Lidocaine HCl (Buffered Lidocaine 1%) 3 ml 1X ONCE IJ Last administered on 08/26/19at 09:30; Start 08/26/19 at 09:15; Stop 08/26/19 at 09:16; Status DC Midazolam HCl (Versed) 5 mg 1X ONCE IV Last administered on 08/26/19at 09:30; Start 08/26/19 at 09:15; Stop 08/26/19 at 09:16; Status DC Fentanyl Citrate (Fentanyl 5ml Vial) 250 mcg 1X ONCE IV Last administered on 08/26/19at 09:30; Start 08/26/19 at 09:15; Stop 08/26/19 at 09:16; Status DC Bumetanide (Bumex) 2 mg DAILY IV Last administered on 09/05/19at 08:07; Start 08/26/19 at 10:00; Stop 09/05/19 at 17:15; Status DC Potassium Chloride 75 meq/ Magnesium Sulfate 15 meq/ Multivitamins 10 ml/Chromium/ Copper/Manganese/ Seleni/Zn 0.5 ml/ Insulin Human Regular 15 unit/ Total Parenteral Nutrition/Amino Acids/Dextrose/ Fat Emulsion Intravenous 1,920 ml @ 80 mls/hr TPN CONT IV Last administered on 08/26/19at 21:59; Start 08/26/19 at 22:00; Stop 08/27/19 at 21:59; Status DC Metoclopramide HCl (Reglan Vial) 10 mg PRN Q3HRS PRN IVP NAUSEA/VOMITING-3rd choice Last administered on 09/01/19at 04:25; Start 08/27/19 at 16:45 Potassium Chloride 75 meq/ Magnesium Sulfate 15 meq/ Multivitamins 10 ml/Chromium/ Copper/Manganese/ Seleni/Zn 0.5 ml/ Insulin Human Regular 15 unit/ Total Parenteral Nutrition/Amino Acids/Dextrose/ Fat Emulsion Intravenous 1,920 ml @ 80 mls/hr TPN CONT IV Last administered on 08/27/19at 22:41; Start 08/27/19 at 22:00; Stop 08/28/19 at 21:59; Status DC Magnesium Sulfate 50 ml @ 25 mls/hr 1X ONCE IV Last administered on 08/28/19at 10:44; Start 08/28/19 at 09:00; Stop 08/28/19 at 10:59; Status DC Potassium Chloride/Water 100 ml @ 100 mls/hr 1X ONCE IV Last administered on 08/28/19at 09:37; Start 08/28/19 at 09:00; Stop 08/28/19 at 09:59; Status DC Duloxetine HCl (Cymbalta) 30 mg DAILY PO Last administered on 08/29/19at 09:48; Start 08/28/19 at 14:00; Stop 08/31/19 at 10:25; Status DC Potassium Chloride 80 meq/ Magnesium Sulfate 20 meq/ Multivitamins 10 ml/Chromium/ Copper/Manganese/ Seleni/Zn 0.5 ml/ Insulin Human Regular 15 unit/ Total Parenteral Nutrition/Amino Acids/Dextrose/ Fat Emulsion Intravenous 1,920 ml @ 80 mls/hr TPN CONT IV Last administered on 08/28/19at 21:42; Start 08/28/19 at 22:00; Stop 08/29/19 at 21:59; Status DC Potassium Chloride 80 meq/ Magnesium Sulfate 20 meq/ Multivitamins 10 ml/Chromium/ Copper/Manganese/ Seleni/Zn 0.5 ml/ Insulin Human Regular 15 unit/ Total Parenteral Nutrition/Amino Acids/Dextrose/ Fat Emulsion Intravenous 1,920 ml @ 80 mls/hr TPN CONT IV Last administered on 08/29/19at 22:20; Start 08/29/19 at 22:00; Stop 08/30/19 at 21:59; Status DC Lidocaine HCl (Buffered Lidocaine 1%) 3 ml [employer] ONCE .ROUTE ; Start 08/30/19 at 09:54; Stop 08/30/19 at 09:55; Status DC Hydromorphone HCl (Dilaudid Standard [employer]) 12 mg STK-MED ONCE IV ; Start 08/19/19 at 15:50; Stop 08/30/19 at 11:24; Status DC Potassium Chloride 80 meq/ Magnesium Sulfate 20 meq/ Multivitamins 10 ml/Chromium/ Copper/Manganese/ Seleni/Zn 0.5 ml/ Insulin Human Regular 15 unit/ Total Parenteral Nutrition/Amino Acids/Dextrose/ Fat Emulsion Intravenous 1,920 ml @ 80 mls/hr TPN CONT IV Last administered on 08/30/19at 21:40; Start 08/30/19 at 22:00; Stop 08/31/19 at 21:59; Status DC Lidocaine HCl (Buffered Lidocaine 1%) 6 ml 1X ONCE INJ Last administered on 08/30/19at 14:15; Start 08/30/19 at 14:15; Stop 08/30/19 at 14:16; Status DC Potassium Chloride 80 meq/ Magnesium Sulfate 20 meq/ Multivitamins 10 ml/Chromium/ Copper/Manganese/ Seleni/Zn 1 ml/ Insulin Human Regular 15 unit/ Total Parenteral Nutrition/Amino Acids/Dextrose/ Fat Emulsion Intravenous 1,920 ml @ 80 mls/hr TPN CONT IV Last administered on 08/31/19at 22:04; Start 08/31/19 at 22:00; Stop 09/01/19 at 21:59; Status DC Potassium Chloride/Water 100 ml @ 100 mls/hr 1X ONCE IV Last administered on 09/01/19at 11:34; Start 09/01/19 at 11:00; Stop 09/01/19 at 11:59; Status DC Potassium Chloride 90 meq/ Magnesium Sulfate 20 meq/ Multivitamins 10 ml/Chromium/ Copper/Manganese/ Seleni/Zn 1 ml/ Insulin Human Regular 15 unit/ Total Parenteral Nutrition/Amino Acids/Dextrose/ Fat Emulsion Intravenous 1,920 ml @ 80 mls/hr TPN CONT IV Last administered on 09/01/19at 22:57; Start 09/01/19 at 22:00; Stop 09/02/19 at 21:59; Status DC Potassium Chloride 90 meq/ Magnesium Sulfate 20 meq/ Multivitamins 10 ml/Chromium/ Copper/Manganese/ Seleni/Zn 1 ml/ Insulin Human Regular 15 unit/ Total Parenteral Nutrition/Amino Acids/Dextrose/ Fat Emulsion Intravenous 1,920 ml @ 80 mls/hr TPN CONT IV Last administered on 09/02/19at 22:48; Start 09/02/19 at 22:00; Stop 09/03/19 at 21:59; Status DC Potassium Chloride 90 meq/ Magnesium Sulfate 20 meq/ Multivitamins 10 ml/Chromium/ Copper/Manganese/ Seleni/Zn 1 ml/ Insulin Human Regular 15 unit/ Total Parenteral Nutrition/Amino Acids/Dextrose/ Fat Emulsion Intravenous 1,890 ml @ 78.75 mls/ hr TPN CONT IV Last administered on 09/03/19at 22:15; Start 09/03/19 at 22:00; Stop 09/04/19 at 21:59; Status DC Linezolid/Dextrose 300 ml @ 300 mls/hr Q12HR IV Last administered on 09/06/19at 21:08; Start 09/04/19 at 09:00; Stop 09/07/19 at 08:11; Status DC Daptomycin 450 mg/ Sodium Chloride 50 ml @ 100 mls/hr Q24H IV Last administered on 09/07/19at 09:25; Start 09/04/19 at 09:00; Stop 09/08/19 at 08:30; Status DC Potassium Chloride 90 meq/ Magnesium Sulfate 20 meq/ Multivitamins 10 ml/Chromium/ Copper/Manganese/ Seleni/Zn 1 ml/ Insulin Human Regular 15 unit/ Total Parenteral Nutrition/Amino Acids/Dextrose/ Fat Emulsion Intravenous 1,890 ml @ 78.75 mls/ hr TPN CONT IV Last administered on 09/04/19at 21:34; Start 09/04/19 at 22:00; Stop 09/05/19 at 21:59; Status DC Lorazepam (Ativan Inj) 2 mg STK-MED ONCE .ROUTE ; Start 09/04/19 at 14:58; Stop 09/04/19 at 14:58; Status DC Metoprolol Tartrate (Lopressor Vial) 5 mg 1X ONCE IVP Last administered on 09/04/19at 15:31; Start 09/04/19 at 15:15; Stop 09/04/19 at 15:16; Status DC Lorazepam (Ativan Inj) 2 mg 1X ONCE IVP Last administered on 09/04/19at 15:30; Start 09/04/19 at 15:15; Stop 09/04/19 at 15:16; Status DC Enoxaparin Sodium (Lovenox 40mg Syringe) 40 mg Q24H SQ Last administered on 09/23/19at 17:44; Start 09/04/19 at 17:00; Stop 09/25/19 at 06:50; Status DC Lorazepam (Ativan Inj) 1 mg PRN Q4HRS PRN IVP ANXIETY / AGITATION MILD-MOD Last administered on 09/18/19at 15:55; Start 09/04/19 at 19:15; Stop 09/20/19 at 11:45; Status DC Lorazepam (Ativan Inj) 2 mg PRN Q4HRS PRN IVP ANXIETY / AGITATION SEVERE Last administered on 09/19/19at 07:55; Start 09/04/19 at 19:15; Stop 09/20/19 at 11:45; Status DC Fentanyl Citrate (Fentanyl 2ml Vial) 50 mcg PRN Q4HRS PRN IVP SEVERE PAIN Last administered on 10/01/19at 05:15; Start 09/05/19 at 13:15; Stop 10/02/19 at 09:29; Status DC Fentanyl Citrate (Fentanyl 2ml Vial) 25 mcg PRN Q4HRS PRN IVP MODERATE PAIN Last administered on 10/01/19at 00:27; Start 09/05/19 at 13:15; Stop 10/02/19 at 09:30; Status DC Potassium Chloride 90 meq/ Magnesium Sulfate 20 meq/ Multivitamins 10 ml/Chromium/ Copper/Manganese/ Seleni/Zn 1 ml/ Insulin Human Regular 15 unit/ Total Parenteral Nutrition/Amino Acids/Dextrose/ Fat Emulsion Intravenous 1,890 ml @ 78.75 mls/ hr TPN CONT IV Last administered on 09/05/19at 22:18; Start 09/05/19 at 22:00; Stop 09/06/19 at 21:59; Status DC Furosemide (Lasix) 40 mg 1X ONCE IVP Last administered on 09/05/19at 21:51; Start 09/05/19 at 21:45; Stop 09/05/19 at 21:48; Status DC Albumin Human 100 ml @ 100 mls/hr 1X PRN PRN IV SEE COMMENTS; Start 09/06/19 at 01:30 Furosemide (Lasix) 40 mg [id number] IVP Last administered on 09/21/19at 08:04; Start 09/06/19 at 14:00; Stop 09/21/19 at 13:07; Status DC Potassium Chloride 90 meq/ Magnesium Sulfate 20 meq/ Multivitamins 10 ml/Chromium/ Copper/Manganese/ Seleni/Zn 1 ml/ Insulin Human Regular 15 unit/ Total Parenteral Nutrition/Amino Acids/Dextrose/ Fat Emulsion Intravenous 1,800 ml @ 75 mls/hr TPN CONT IV Last administered on 09/06/19at 22:31; Start 09/06/19 at 22:00; Stop 09/07/19 at 21:59; Status DC Potassium Chloride 90 meq/ Magnesium Sulfate 20 meq/ Multivitamins 10 ml/Chromium/ Copper/Manganese/ Seleni/Zn 1 ml/ Insulin Human Regular 15 unit/ Total Parenteral Nutrition/Amino Acids/Dextrose/ Fat Emulsion Intravenous 1,800 ml @ 75 mls/hr TPN CONT IV Last administered on 09/07/19at 22:28; Start 09/07/19 at 22:00; Stop 09/08/19 at 21:59; Status DC Potassium Chloride 110 meq/ Magnesium Sulfate 20 meq/ Multivitamins 10 ml/Chromium/ Copper/Manganese/ Seleni/Zn 1 ml/ Insulin Human Regular 15 unit/ Total Parenteral Nutrition/Amino Acids/Dextrose/ Fat Emulsion Intravenous 1,800 ml @ 75 mls/hr TPN CONT IV Last administered on 09/08/19at 22:01; Start 09/08/19 at 22:00; Stop 09/09/19 at 21:59; Status DC Saliva Substitute (Biotene Moisturizing Mouth) 2 spray PRN Q15MIN PRN PO DRY MOUTH; Start 09/08/19 at 11:00 Potassium Chloride 110 meq/ Magnesium Sulfate 20 meq/ Multivitamins 10 ml/Chromium/ Copper/Manganese/ Seleni/Zn 1 ml/ Insulin Human Regular 15 unit/ Total Parenteral Nutrition/Amino Acids/Dextrose/ Fat Emulsion Intravenous 1,800 ml @ 75 mls/hr TPN CONT IV Last administered on 09/09/19at 22:21; Start 09/09/19 at 22:00; Stop 09/10/19 at 21:59; Status DC Potassium Chloride 110 meq/ Magnesium Sulfate 20 meq/ Multivitamins 10 ml/Chromium/ Copper/Manganese/ Seleni/Zn 1 ml/ Insulin Human Regular 15 unit/ Total Parenteral Nutrition/Amino Acids/Dextrose/ Fat Emulsion Intravenous 1,800 ml @ 75 mls/hr TPN CONT IV Last administered on 09/10/19at 22:04; Start 09/10/19 at 22:00; Stop 09/11/19 at 21:59; Status DC Potassium Chloride 110 meq/ Magnesium Sulfate 20 meq/ Multivitamins 10 ml/Chromium/ Copper/Manganese/ Seleni/Zn 1 ml/ Insulin Human Regular 15 unit/ Total Parenteral Nutrition/Amino Acids/Dextrose/ Fat Emulsion Intravenous 1,800 ml @ 75 mls/hr TPN CONT IV Last administered on 09/11/19at 22:48; Start 09/11/19 at 22:00; Stop 09/12/19 at 21:59; Status DC Potassium Chloride 70 meq/ Magnesium Sulfate 20 meq/ Multivitamins 10 ml/Chromium/ Copper/Manganese/ Seleni/Zn 1 ml/ Insulin Human Regular 15 unit/ Total Parenteral Nutrition/Amino Acids/Dextrose/ Fat Emulsion Intravenous 1,800 ml @ 75 mls/hr TPN CONT IV Last administered on 09/12/19at 21:39; Start 09/12/19 at 22:00; Stop 09/13/19 at 21:59; Status DC Meropenem 500 mg/ Sodium Chloride 50 ml @ 100 mls/hr Q6HRS IV Last administered on 09/14/19at 06:02; Start 09/12/19 at 18:00; Stop 09/14/19 at 09:59; Status DC Barium Sulfate (Varibar Thin Liquid Apple) 148 gm 1X ONCE PO ; Start 09/13/19 at 11:45; Stop 09/13/19 at 11:49; Status DC Potassium Chloride 70 meq/ Magnesium Sulfate 20 meq/ Multivitamins 10 ml/Chromium/ Copper/Manganese/ Seleni/Zn 1 ml/ Insulin Human Regular 15 unit/ Total Parenteral Nutrition/Amino Acids/Dextrose/ Fat Emulsion Intravenous 1,800 ml @ 75 mls/hr TPN CONT IV Last administered on 09/13/19at 22:27; Start 09/13/19 at 22:00; Stop 09/14/19 at 21:59; Status DC Piperacillin Sod/ Tazobactam Sod 3.375 gm/Sodium Chloride 50 ml @ 100 mls/hr Q6HRS IV Last administered on 09/22/19at 06:10; Start 09/14/19 at 12:00; Stop 09/22/19 at 07:26; Status DC Potassium Chloride 70 meq/ Magnesium Sulfate 20 meq/ Multivitamins 10 ml/Chromium/ Copper/Manganese/ Seleni/Zn 1 ml/ Insulin Human Regular 15 unit/ Total Parenteral Nutrition/Amino Acids/Dextrose/ Fat Emulsion Intravenous 1,800 ml @ 75 mls/hr TPN CONT IV Last administered on 09/14/19at 22:03; Start 09/14/19 at 22:00; Stop 09/15/19 at 21:59; Status DC Potassium Chloride 70 meq/ Magnesium Sulfate 20 meq/ Multivitamins 10 ml/Chromium/ Copper/Manganese/ Seleni/Zn 1 ml/ Insulin Human Regular 15 unit/ Total Parenteral Nutrition/Amino Acids/Dextrose/ Fat Emulsion Intravenous 1,800 ml @ 75 mls/hr TPN CONT IV Last administered on 09/15/19at 22:33; Start 09/15/19 at 22:00; Stop 09/16/19 at 21:59; Status DC Potassium Chloride 70 meq/ Magnesium Sulfate 20 meq/ Multivitamins 10 ml/Chromium/ Copper/Manganese/ Seleni/Zn 1 ml/ Insulin Human Regular 15 unit/ Total Parenteral Nutrition/Amino Acids/Dextrose/ Fat Emulsion Intravenous 1,800 ml @ 75 mls/hr TPN CONT IV Last administered on 09/16/19at 23:13; Start 09/16/19 at 22:00; Stop 09/17/19 at 21:59; Status DC Potassium Chloride 80 meq/ Magnesium Sulfate 20 meq/ Multivitamins 10 ml/Chromium/ Copper/Manganese/ Seleni/Zn 1 ml/ Insulin Human Regular 15 unit/ Total Parenteral Nutrition/Amino Acids/Dextrose/ Fat Emulsion Intravenous 1,800 ml @ 75 mls/hr TPN CONT IV Last administered on 09/17/19at 22:30; Start 09/17/19 at 22:00; Stop 09/18/19 at 21:59; Status DC Potassium Chloride 80 meq/ Magnesium Sulfate 20 meq/ Multivitamins 10 ml/Chromium/ Copper/Manganese/ Seleni/Zn 1 ml/ Insulin Human Regular 15 unit/ Total Parenteral Nutrition/Amino Acids/Dextrose/ Fat Emulsion Intravenous 1,800 ml @ 75 mls/hr TPN CONT IV Last administered on 09/18/19at 21:54; Start 09/18/19 at 22:00; Stop 09/19/19 at 21:59; Status DC Potassium Chloride/Water 100 ml @ 100 mls/hr 1X ONCE IV Last administered on 09/19/19at 10:15; Start 09/19/19 at 10:00; Stop 09/19/19 at 10:59; Status DC Potassium Chloride 90 meq/ Magnesium Sulfate 20 meq/ Multivitamins 10 ml/Chromium/ Copper/Manganese/ Seleni/Zn 1 ml/ Insulin Human Regular 20 unit/ Total Parenteral Nutrition/Amino Acids/Dextrose/ Fat Emulsion Intravenous 1,800 ml @ 75 mls/hr TPN CONT IV Last administered on 09/19/19at 22:28; Start 09/19/19 at 22:00; Stop 09/20/19 at 21:59; Status DC Potassium Chloride 90 meq/ Magnesium Sulfate 20 meq/ Multivitamins 10 ml/Chromium/ Copper/Manganese/ Seleni/Zn 1 ml/ Insulin Human Regular 20 unit/ Total Parenteral Nutrition/Amino Acids/Dextrose/ Fat Emulsion Intravenous 1,800 ml @ 75 mls/hr TPN CONT IV Last administered on 09/20/19at 22:08; Start 09/20/19 at 22:00; Stop 09/21/19 at 21:59; Status DC Lorazepam (Ativan Inj) 0.25 mg PRN Q4HRS PRN IVP ANXIETY / AGITATION Last adm inistered on 10/01/19at 02:25; Start 09/21/19 at 07:30 Potassium Chloride 90 meq/ Magnesium Sulfate 20 meq/ Multivitamins 10 ml/Ch romium/ Copper/Manganese/ Seleni/Zn 1 ml/ Insulin Human Regular 20 unit/ Total Parenteral Nutrition/Amino Acids/Dextrose/ Fat Emulsion Intravenous 1,800 ml @ 75 mls/hr TPN CONT IV Last administered on 09/21/19at 23:13; Start 09/21/19 at 22:00; Stop 09/22/19 at 21:59; Status DC Furosemide (Lasix) 40 mg DAILY IVP Last administered on 09/23/19at 11:14; Start 09/21/19 at 13:30; Stop 09/25/19 at 09:12; Status DC Fluoxetine HCl (PROzac) 20 mg QHS PEG Last administered on 10/07/19at 22:08; Start 09/22/19 at 21:00 Fentanyl (Duragesic 50mcg/ Hr Patch) 1 patch Q72H TD Last administered on 09/22/19at 21:22; Start 09/22/19 at 21:00; Stop 10/01/19 at 12:00; Status DC Potassium Chloride 40 meq/ Potassium Acetate 60 meq/Magnesium Sulfate 10 meq/ Multivitamins 10 ml/Chromium/ Copper/Manganese/ Seleni/Zn 1 ml/ Insulin Human Regular 20 unit/ Total Parenteral Nutrition/Amino Acids/Dextrose/ Fat Emulsion Intravenous 1,800 ml @ 75 mls/hr TPN CONT IV Last administered on 09/23/19at 00:03; Start 09/22/19 at 22:00; Stop 09/23/19 at 21:59; Status DC Potassium Acetate 80 meq/Magnesium Sulfate 5 meq/ Multivitamins 10 ml/Chromium/ Copper/Manganese/ Seleni/Zn 1 ml/ Insulin Human Regular 20 unit/ Total Parenteral Nutrition/Amino Acids/Dextrose/ Fat Emulsion Intravenous 1,920 ml @ 80 mls/hr TPN CONT IV Last administered on 09/23/19at 21:59; Start 09/23/19 at 22:00; Stop 09/24/19 at 21:59; Status DC Potassium Acetate 60 meq/Magnesium Sulfate 5 meq/ Multivitamins 10 ml/Chromium/ Copper/Manganese/ Seleni/Zn 1 ml/ Insulin Human Regular 30 unit/ Total Parenteral Nutrition/Amino Acids/Dextrose/ Fat Emulsion Intravenous 1,920 ml @ 80 mls/hr TPN CONT IV Last administered on 09/24/19at 21:54; Start 09/24/19 at 22:00; Stop 09/25/19 at 21:59; Status DC Norepinephrine Bitartrate 8 mg/ Dextrose 258 ml @ 13.332 mls/ hr CONT PRN IV PER PROTOCOL Last administered on 09/25/19at 21:46; Start 09/25/19 at 06:30 Albumin Human 500 ml @ 125 mls/hr 1X ONCE IV Last administered on 09/25/19at 08:10; Start 09/25/19 at 08:15; Stop 09/25/19 at 12:14; Status DC Potassium Acetate 40 meq/Magnesium Sulfate 5 meq/ Multivitamins 10 ml/Chromium/ Copper/Manganese/ Seleni/Zn 1 ml/ Insulin Human Regular 30 unit/ Total Parenteral Nutrition/Amino Acids/Dextrose/ Fat Emulsion Intravenous 1,920 ml @ 80 mls/hr TPN CONT IV Last administered on 09/25/19at 22:23; Start 09/25/19 at 22:00; Stop 09/26/19 at 21:59; Status DC Meropenem 1 gm/ Sodium Chloride 100 ml @ 200 mls/hr Q8HRS IV ; Start 09/25/19 at 14:00; Status Cancel Meropenem 1 gm/ Sodium Chloride 100 ml @ 200 mls/hr Q8HRS IV Last administered on 09/25/19at 11:04; Start 09/25/19 at 10:00; Stop 09/25/19 at 13:00; Status DC Meropenem 1 gm/ Sodium Chloride 100 ml @ 200 mls/hr Q12HR IV Last administered on 10/07/19at 22:08; Start 09/25/19 at 21:00 Sodium Chloride 1,000 ml @ 1,000 mls/hr 1X ONCE IV Last administered on 09/25/19at 11:06; Start 09/25/19 at 10:45; Stop 09/25/19 at 11:44; Status DC Micafungin Sodium 100 mg/Dextrose 100 ml @ 100 mls/hr Q24H IV Last administered on 10/07/19at 11:10; Start 09/25/19 at 11:00 Daptomycin 410 mg/ Sodium Chloride 50 ml @ 100 mls/hr Q24H IV Last administered on 09/27/19at 13:33; Start 09/25/19 at 14:00; Stop 09/28/19 at 08:30; Status DC Midazolam HCl (Versed) 2 mg STK-MED ONCE .ROUTE ; Start 09/25/19 at 14:47; Stop 09/25/19 at 14:48; Status DC Fentanyl Citrate (Fentanyl 2ml Vial) 100 mcg STK-MED ONCE .ROUTE ; Start 09/25/19 at 14:47; Stop 09/25/19 at 14:48; Status DC Flumazenil (Romazicon) 0.5 mg STK-MED ONCE IV ; Start 09/25/19 at 14:48; Stop 09/25/19 at 14:48; Status DC Naloxone HCl (Narcan) 0.4 mg STK-MED ONCE .ROUTE ; Start 09/25/19 at 14:48; Stop 09/25/19 at 14:48; Status DC Lidocaine HCl (Lidocaine 1% 20ml Vial) 20 ml STK-MED ONCE .ROUTE ; Start 09/25/19 at 14:48; Stop 09/25/19 at 14:48; Status DC Midazolam HCl (Versed) 2 mg 1X ONCE IV Last administered on 09/25/19at 15:28; Start 09/25/19 at 15:00; Stop 09/25/19 at 15:01; Status DC Fentanyl Citrate (Fentanyl 2ml Vial) 100 mcg 1X ONCE IV Last administered on 09/25/19at 15:28; Start 09/25/19 at 15:00; Stop 09/25/19 at 15:01; Status DC Lidocaine HCl (Lidocaine 1% 20ml Vial) 20 ml 1X ONCE INJ Last administered on 09/25/19at 15:30; Start 09/25/19 at 15:00; Stop 09/25/19 at 15:01; Status DC Sodium Chloride 1,000 ml @ 100 mls/hr Q10H IV Last administered on 10/04/19at 07:30; Start 09/25/19 at 20:00; Stop 10/04/19 at 11:26; Status DC Sodium Bicarbonate (Sodium Bicarb Adult 8.4% Syr) 50 meq 1X ONCE IV Last administered on 09/25/19at 21:47; Start 09/25/19 at 22:00; Stop 09/25/19 at 22:01; Status DC Potassium Acetate 40 meq/Magnesium Sulfate 5 meq/ Multivitamins 10 ml/Chromium/ Copper/Manganese/ Seleni/Zn 1 ml/ Insulin Human Regular 30 unit/ Total Parenteral Nutrition/Amino Acids/Dextrose/ Fat Emulsion Intravenous 1,920 ml @ 80 mls/hr TPN CONT IV Last administered on 09/26/19at 22:28; Start 09/26/19 at 22:00; Stop 09/27/19 at 21:59; Status DC Sodium Chloride 500 ml @ 500 mls/hr 1X ONCE IV Last administered on 09/27/19at 06:39; Start 09/27/19 at 06:45; Stop 09/27/19 at 07:44; Status DC Potassium Acetate 40 meq/Magnesium Sulfate 5 meq/ Multivitamins 10 ml/Chromium/ Copper/Manganese/ Seleni/Zn 1 ml/ Insulin Human Regular 30 unit/ Total Parenteral Nutrition/Amino Acids/Dextrose/ Fat Emulsion Intravenous 1,920 ml @ 80 mls/hr TPN CONT IV Last administered on 09/27/19at 22:03; Start 09/27/19 at 22:00; Stop 09/28/19 at 21:59; Status DC Metoprolol Tartrate (Lopressor Vial) 5 mg PRN Q6HRS PRN IVP HYPERTENSION Last administered on 10/06/19at 10:14; Start 09/28/19 at 09:00 Potassium Acetate 40 meq/Magnesium Sulfate 5 meq/ Multivitamins 10 ml/Chromium/ Copper/Manganese/ Seleni/Zn 1 ml/ Insulin Human Regular 30 unit/ Total Parenteral Nutrition/Amino Acids/Dextrose/ Fat Emulsion Intravenous 1,920 ml @ 80 mls/hr TPN CONT IV Last administered on 09/28/19at 21:26; Start 09/28/19 at 22:00; Stop 09/29/19 at 21:59; Status DC Potassium Acetate 40 meq/Magnesium Sulfate 5 meq/ Multivitamins 10 ml/Chromium/ Copper/Manganese/ Seleni/Zn 1 ml/ Insulin Human Regular 30 unit/ Total Par enteral Nutrition/Amino Acids/Dextrose/ Fat Emulsion Intravenous 1,920 ml @ 80 mls/hr TPN CONT IV Last administered on 09/29/19at 23:23; Start 09/29/19 at 22:00; Stop 09/30/19 at 21:59; Status DC Potassium Acetate 40 meq/Magnesium Sulfate 5 meq/ Multivitamins 10 ml/Chromium/ Copper/Manganese/ Seleni/Zn 1 ml/ Insulin Human Regular 30 unit/ Total Parenteral Nutrition/Amino Acids/Dextrose/ Fat Emulsion Intravenous 1,920 ml @ 80 mls/hr TPN CONT IV Last administered on 09/30/19at 21:35; Start 09/30/19 at 22:00; Stop 10/01/19 at 21:59; Status DC Furosemide (Lasix) 20 mg 1X ONCE IVP Last administered on 10/01/19at 06:26; Start 10/01/19 at 06:15; Stop 10/01/19 at 06:16; Status DC Methylprednisolone Sodium Succinate (SOLU-Medrol 125MG VIAL) 125 mg 1X ONCE IV Last administered on 10/01/19at 06:26; Start 10/01/19 at 06:15; Stop 10/01/19 at 06:16; Status DC Albuterol/ Ipratropium (Duoneb) 3 ml Q4HRS NEB Last administered on 10/08/19at 04:00; Start 10/01/19 at 08:00 Fentanyl Citrate 30 ml @ 0 mls/hr CONT PRN IV SEE PROTOCOL Last administered on 10/08/19at 05:56; Start 10/01/19 at 06:00 Propofol 100 ml @ 0 mls/hr CONT PRN IV SEE PROTOCOL Last administered on 10/08/19at 00:12; Start 10/01/19 at 06:00 Fentanyl Citrate (Fentanyl 2ml Vial) 25 mcg PRN Q1HR PRN IV SEE COMMENTS; Start 10/01/19 at 06:00 Fentanyl Citrate (Fentanyl 2ml Vial) 50 mcg PRN Q1HR PRN IV SEE COMMENTS; Start 10/01/19 at 06:00 Chlorhexidine Gluconate (Peridex) 15 ml BID MM ; Start 10/01/19 at 09:00; Stop 10/01/19 at 07:58; Status DC Potassium Acetate 40 meq/Magnesium Sulfate 5 meq/ Multivitamins 10 ml/Chromium/ Copper/Manganese/ Seleni/Zn 1 ml/ Insulin Human Regular 30 unit/ Total Parenteral Nutrition/Amino Acids/Dextrose/ Fat Emulsion Intravenous 1,920 ml @ 80 mls/hr TPN CONT IV Last administered on 10/01/19at 21:19; Start 10/01/19 at 22:00; Stop 10/02/19 at 21:59; Status DC Acetylcysteine (Mucomyst 20% Resp Treatment) 600 mg BID NEB Last administered on 10/07/19at 09:33; Start 10/01/19 at 21:00; Stop 10/07/19 at 10:39; Status DC Magnesium Sulfate 100 ml @ 25 mls/hr 1X ONCE IV Last administered on 10/01/19at 15:48; Start 10/01/19 at 15:45; Stop 10/01/19 at 19:44; Status DC Potassium Acetate 40 meq/Magnesium Sulfate 5 meq/ Multivitamins 10 ml/Chromium/ Copper/Manganese/ Seleni/Zn 1 ml/ Insulin Human Regular 30 unit/ Total Parenteral Nutrition/Amino Acids/Dextrose/ Fat Emulsion Intravenous 1,920 ml @ 80 mls/hr TPN CONT IV Last administered on 6/14/20at 21:35; Start 10/02/19 at 22:00; Stop 10/03/19 at 21:59; Status DC Potassium Chloride/Water 100 ml @ 100 mls/hr Q1H IV Last administered on 10/03/19at 08:31; Start 10/03/19 at 07:00; Stop 10/03/19 at 08:59; Status DC Potassium Acetate 40 meq/Magnesium Sulfate 5 meq/ Multivitamins 10 ml/Chromium/ Copper/Manganese/ Seleni/Zn 1 ml/ Insulin Human Regular 30 unit/ Total Parenteral Nutrition/Amino Acids/Dextrose/ Fat Emulsion Intravenous 1,920 ml @ 80 mls/hr TPN CONT IV Last administered on 10/03/19at 21:54; Start 10/03/19 at 22:00; Stop 10/04/19 at 19:34; Status DC Lidocaine HCl (Buffered Lidocaine 1%) 3 ml STK-MED ONCE .ROUTE ; Start 10/03/19 at 12:14; Stop 10/03/19 at 12:14; Status DC Lidocaine HCl (Buffered Lidocaine 1%) 3 ml 1X ONCE IJ Last administered on 10/03/19at 13:11; Start 10/03/19 at 13:00; Stop 10/03/19 at 13:01; Status DC Magnesium Sulfate 50 ml @ 25 mls/hr 1X ONCE IV ; Start 10/04/19 at 08:15; Stop 10/04/19 at 10:14; Status DC Potassium Acetate 40 meq/Magnesium Sulfate 10 meq/ Multivitamins 10 ml/Chromium/ Copper/Manganese/ Seleni/Zn 1 ml/ Insulin Human Regular 20 unit/ Total Pa renteral Nutrition/Amino Acids/Dextrose/ Fat Emulsion Intravenous 1,920 ml @ 80 mls/hr TPN CONT IV Last administered on 10/04/19at 21:32; Start 10/04/19 at 22:00; Stop 10/05/19 at 21:59; Status DC Potassium Chloride/Water 100 ml @ 100 mls/hr Q1H IV Last administered on 10/05/19at 09:12; Start 10/05/19 at 08:00; Stop 10/05/19 at 09:59; Status DC Alteplase, Recombinant (Cathflo For Central Catheter Clearance) 4 mg 1X ONCE INT CAT ; Start 10/05/19 at 09:15; Stop 10/05/19 at 09:16; Status UNV Alteplase, Recombinant (Cathflo For Central Catheter Clearance) 4 mg 1X ONCE INT CAT ; Start 10/05/19 at 09:15; Stop 10/05/19 at 09:16; Status UNV Alteplase, Recombinant (Cathflo For Central Catheter Clearance) 4 mg 1X ONCE INT CAT ; Start 10/05/19 at 09:15; Stop 10/05/19 at 09:16; Status UNV Alteplase, Recombinant 4 mg/ Sodium Chloride 20 ml @ 20 mls/hr 1X ONCE IV Last administered on 10/05/19at 10:10; Start 10/05/19 at 10:00; Stop 10/05/19 at 10:59; Status DC Alteplase, Recombinant 4 mg/ Sodium Chloride 20 ml @ 20 mls/hr 1X ONCE IV Last administered on 10/05/19at 10:09; Start 10/05/19 at 10:00; Stop 10/05/19 at 10:59; Status DC Alteplase, Recombinant 4 mg/ Sodium Chloride 20 ml @ 20 mls/hr 1X ONCE IV Last administered on 10/05/19at 10:09; Start 10/05/19 at 10:00; Stop 10/05/19 at 10:59; Status DC Potassium Acetate 60 meq/Magnesium Sulfate 10 meq/ Multivitamins 10 ml/Chromium/ Copper/Manganese/ Seleni/Zn 1 ml/ Insulin Human Regular 20 unit/ Total Parenteral Nutrition/Amino Acids/Dextrose/ Fat Emulsion Intravenous 1,920 ml @ 80 mls/hr TPN CONT IV Last administered on 10/05/19at 21:55; Start 10/05/19 at 22:00; Stop 10/06/19 at 21:59; Status DC Albumin Human 500 ml @ 125 mls/hr 1X ONCE IV Last administered on 10/06/19at 12:01; Start 10/06/19 at 11:15; Stop 10/06/19 at 15:14; Status DC Sodium Chloride 500 ml @ 500 mls/hr 1X ONCE IV Last administered on 10/06/19at 13:50; Start 10/06/19 at 11:15; Stop 10/06/19 at 12:14; Status DC Potassium Acetate 60 meq/Magnesium Sulfate 14 meq/ Multivitamins 10 ml/Chromium/ Copper/Manganese/ Seleni/Zn 1 ml/ Insulin Human Regular 20 unit/ Total Parenteral Nutrition/Amino Acids/Dextrose/ Fat Emulsion Intravenous 1,920 ml @ 80 mls/hr TPN CONT IV Last administered on 10/06/19at 22:26; Start 10/06/19 at 22:00; Stop 10/07/19 at 21:59; Status DC Ciprofloxacin/ Dextrose 200 ml @ 200 mls/hr Q12HR IV Last administered on 10/07/19at 22:08; Start 10/06/19 at 21:00 Albumin Human 250 ml @ 62.5 mls/hr 1X ONCE IV Last administered on 10/07/19at 11:09; Start 10/07/19 at 11:00; Stop 10/07/19 at 14:59; Status DC Furosemide (Lasix) 20 mg 1X ONCE IVP Last administered on 10/07/19at 14:52; Start 10/07/19 at 10:45; Stop 10/07/19 at 10:49; Status DC Potassium Acetate 60 meq/Magnesium Sulfate 14 meq/ Multivitamins 10 ml/Chromium/ Copper/Manganese/ Seleni/Zn 1 ml/ Insulin Human Regular 15 unit/ Total Parenteral Nutrition/Amino Acids/Dextrose/ Fat Emulsion Intravenous 1,920 ml @ 80 mls/hr TPN CONT IV Last administered on 10/07/19at 22:08; Start 10/07/19 at 22:00; Stop 10/08/19 at 21:59 Active Scripts Active Reported Bisoprolol Fumarate 5 Mg Tablet 10 Mg PO DAILY Vitals/I & O Vital Sign - Last 24 Hours 10/07/19 10/07/19 10/07/19 10/07/19 09:00 09:32 10:00 10:00 Pulse 112 120 Resp 20 18 B/P (MAP) 104/61 (75) 116/68 (84) Pulse Ox 98 98 98 99 O2 Delivery Ventilator Ventilator Tracheal Collar Tracheal Collar O2 Flow Rate 9.0 10/07/19 10/07/19 10/07/19 10/07/19 11:00 11:35 12:00 12:00 Temp 98.3 98.3 Pulse 118 111 Resp 18 18 B/P (MAP) 102/59 (73) 95/49 (64) Pulse Ox 100 98 100 O2 Delivery Tracheal Collar Trach Collar Tracheal Collar Tracheal Collar O2 Flow Rate 9.0 10/07/19 10/07/19 10/07/19 10/07/19 12:29 13:00 13:00 14:00 Pulse 112 114 Resp 22 26 B/P (MAP) 105/58 (74) 101/65 (77) Pulse Ox 98 99 97 98 O2 Delivery Tracheal Collar Tracheal Collar Tracheal Collar Tracheal Collar 10/07/19 10/07/19 10/07/19 10/07/19 15:00 15:37 16:00 16:00 Pulse 118 128 Resp 24 31 B/P (MAP) 120/74 (89) 108/94 (99) Pulse Ox 100 97 93 O2 Delivery Tracheal Collar Tracheal Collar Trach Collar Tracheal Collar O2 Flow Rate 9.0 10/07/19 10/07/19 10/07/19 10/07/19 17:00 18:00 19:00 20:00 Temp 100.7 97.8 100.7 97.8 Pulse 123 120 115 114 Resp 22 22 B/P (MAP) 108/72 (84) 107/63 (78) 107/59 (75) 101/64 (76) Pulse Ox 99 99 99 98 O2 Delivery Tracheal Collar Tracheal Collar Tracheal Collar Tracheal Collar 10/07/19 10/07/19 10/07/19 10/07/19 20:05 20:09 21:00 22:00 Pulse 116 110 Resp 22 22 B/P (MAP) 103/70 (81) 99/61 (74) Pulse Ox 98 99 99 O2 Delivery Trach Collar Tracheal Collar Tracheal Collar Tracheal Collar O2 Flow Rate 8.0 10/07/19 10/07/19 10/08/19 10/08/19 23:00 23:45 00:00 00:03 Temp 98.2 98.2 Pulse 108 108 Resp 22 22 B/P (MAP) 102/58 (73) 97/56 (70) Pulse Ox 99 99 98 O2 Delivery Tracheal Collar Trach Collar Tracheal Collar Ventilator 10/08/19 10/08/19 10/08/19 10/08/19 01:00 02:00 03:00 04:00 Temp 100.1 100.1 Pulse 94 108 108 Resp 22 22 22 B/P (MAP) 96/49 (65) 92/56 (68) 102/58 (73) Pulse Ox 99 99 99 O2 Delivery Ventilator Ventilator Tracheal Collar Mechanical Ventilator 6/20/10/08/19 10/08/19 10/08/19 04:00 04:00 04:08 05:00 Pulse 108 108 108 Resp B/P (MAP) 92/56 (68) 92/56 (68) 90/53 (65) Pulse Ox 99 99 98 99 O2 Delivery Ventilator Ventilator Ventilator Ventilator 10/08/19 10/08/19 10/08/19 10/08/19 05:00 05:56 06:00 06:00 Pulse 108 106 108 Resp B/P (MAP) 92/56 (68) 89/58 (68) 89/59 (69) Pulse Ox 99 100 99 99 O2 Delivery Ventilator Ventilator Ventilator Ventilator Intake and Output 10/07/19 10/07/19 10/08/19 15:00 23:00 07:00 Intake Total 915 ml Output Total 800 ml 1635 ml 425 ml Balance -800 ml -1635 ml 490 ml Hemodynamically unstable?: No Is patient in severe pain?: No Is NPO status required?: No CARIN FERNANDEZ MD Oct 08, 2019 08:38
--- NOTE | 2019-10-08 08:54 | PDOC ---
Infectious Disease Note Subjective Subjective Low-grade fever, Tmax 100.7 vent FiO2 35% TPN ROS ROS limited due to patient's condition Vital Sign Vital Signs Vital Signs Date Time Temp Pulse Resp B/P (MAP) Pulse Ox O2 Delivery O2 Flow Rate FiO2 10/08/19 06:00 108 22 89/59 (69) 99 Ventilator 10/08/19 03:00 100.1 100.1 10/07/19 20:09 8.0 Physical Exam PHYSICAL EXAM GENERAL: Propped up in bed, awake, weak appearing HEENT: NGT in place. 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 LUE-PICC (09/15) without signs of complications Labs Lab Laboratory Tests Test 10/07/19 12:25 10/07/19 14:43 10/07/19 23:40 10/08/19 05:50 Glucose (Fingerstick) 185 mg/dL (70-99) 147 mg/dL (70-99) Ionized Calcium 1.50 mmol/L (1.13-1.32) Iron Level 8 ug/dL (50-170) Total Iron Binding Capacity 56 ug/dL (250-450) Iron Saturation 14 % (15-34) White Blood Count 7.7 x10^3/uL (4.0-11.0) Red Blood Count 2.76 x10^6/uL (3.50-5.40) Hemoglobin 7.8 g/dL (12.0-15.5) Hematocrit 23.6 % (36.0-47.0) Mean Corpuscular Volume 85 fL (79-100) Mean Corpuscular Hemoglobin 28 pg (25-35) Mean Corpuscular Hemoglobin Concent 33 g/dL (31-37) Red Cell Distribution Width 18.2 % (11.5-14.5) Platelet Count 479 x10^3/uL (140-400) Neutrophils (%) (Auto) 74 % (31-73) Lymphocytes (%) (Auto) 16 % (24-48) Monocytes (%) (Auto) 9 % (0-9) Eosinophils (%) (Auto) 2 % (0-3) Basophils (%) (Auto) 0 % (0-3) Neutrophils # (Auto) 5.6 x10^3/uL (1.8-7.7) Lymphocytes # (Auto) 1.2 x10^3/uL (1.0-4.8) Monocytes # (Auto) 0.7 x10^3/uL (0.0-1.1) Eosinophils # (Auto) 0.1 x10^3/uL (0.0-0.7) Basophils # (Auto) 0.0 x10^3/uL (0.0-0.2) Sodium Level 137 mmol/L (136-145) Potassium Level 3.8 mmol/L (3.5-5.1) Chloride Level 103 mmol/L (98-107) Carbon Dioxide Level 28 mmol/L (21-32) Anion Gap 6 (6-14) Blood Urea Nitrogen 17 mg/dL (7-20) Creatinine 0.6 mg/dL (0.6-1.0) Estimated GFR (Cockcroft-Gault) 106.3 BUN/Creatinine Ratio 28 (6-20) Glucose Level 134 mg/dL (70-99) Calcium Level 9.4 mg/dL (8.5-10.1) Total Bilirubin 0.4 mg/dL (0.2-1.0) Aspartate Amino Transf (AST/SGOT) 17 U/L (15-37) Alanine Aminotransferase (ALT/SGPT) 18 U/L (14-59) Alkaline Phosphatase 101 U/L (46-116) Total Protein 4.4 g/dL (6.4-8.2) Albumin 1.1 g/dL (3.4-5.0) Albumin/Globulin Ratio 0.3 (1.0-1.7) Test 10/08/19 05:55 Glucose (Fingerstick) 131 mg/dL (70-99) Micro Pleural fluid, 10/02 ANAEROBIC-AEROBIC CULTURE Preliminary Preliminary No Growth on 10/04/19 at 1117 No Growth on 10/05/19 at 1038 Objective Assessment Patient with prolonged hospitalization Multiple medical problems Multiple surgical procedures Vomiting Fever 10/05 WBC nml - Added cipro 10/05 with h/p res PSA in sputum maybe sec to ileus given her vomiting. Art- line placed 09/24 - d/c'd 10/05 Respiratory failure/trach/vent: sputum 09/30 + PSAE (I merrem) Pleural effusions s/p left thoracentesis, 08/29. no culture. s/p left chest tube, 10/02 no growth Gallstone pancreatitis with necrosis. -CT A/P 09/23 showed multiple pseudocysts, slight larger on the right. s/p drains x 3, 09/24. + PSAE (MDRO-R Cefepime, Zosyn ALEXANDRA < 64) and yeast, -s/p drain 08/14. C. parapsilosis. s/p drain 08/23 + yeast & high amylase; s/p additional drain on 08/25. Drains removed. Ascites s/p paracentesis 08/02 & 08/23. C. parapsilosis JUANA. off HD. Anemia Prediabetes HTN Plan Plan of Care Continue cipro 10/05. sputum from 09/30 - growing PSA - may be colonization (I to Meropenem), clinically stable from resp standpoint Continue meropenem, has MDRO PSAE September 24 from abd Continue micafungin September 24 Follow-up cultures fluid for yeast ID Monitor labs/temp General surgery following Monitor drain output Maintain aspiration precaution Supportive care [facility] [place] [phone] Critically ill Attending Co-Sign The patient was seen and interviewed as well as examined at the bedside. The chart was reviewed. The case was discussed. Agree with the plan of care. FRANCA HOBSON APRN Oct 08, 2019 08:54 KIMMY JONES MD Oct 08, 2019 11:15
[2019-10-08] MEDS: TPN PER PHARMACY MC PRN (08:55)
--- NOTE | 2019-10-08 08:55 | NUR ---
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, 8 inches Weight: 90.1 kg Current diet: NPO LABS: Sodium: 137 Potassium: 3.8 Chloride: 103 Calcium: 9.4 Corrected Calcium: 11.72 Magnesium: 1.9 CO2: 28 SCr: 0.6 Glucose: 134 Albumin: 1.1 AST: 17 ALT: 18 TPN FORMULA: TPN TYPE: Central Continuous AMINO ACIDS: 80 gm DEXTROSE: 250 gm LIPIDS: 20 gm SODIUM CHLORIDE: - mEq SODIUM ACETATE: - mEq SODIUM PHOSPHATE: - mmol POTASSIUM CHLORIDE: - mEq POTASSIUM ACETATE: 60 mEq POTASSIUM PHOSPHATE: - mmol MAGNESIUM: 14 mEq CALCIUM: - mEq INSULIN: 15 units MULTIPLE VITAMIN: 10 ml TRACE ELEMENTS: 1 ml(s) TPN PLAN: Labs stable. Glucose low to normal. No change to formula. No labs tomorrow due to stability. R: Continue TPN ABOVE. Will monitor electrolytes, glucose, and tolerance to TPN. CHRISTIAN VALLEJO [facility], 10/08/19 [id number]
--- NOTE | 2019-10-08 10:18 | PDOC ---
PROGRESS NOTES Subjective Subjective Had an episode of vomiting Objective Objective Vital Signs Date Time Temp Pulse Resp B/P (MAP) Pulse Ox O2 Delivery O2 Flow Rate FiO2 10/08/19 08:00 Mechanical Ventilator 10/08/19 06:00 108 22 89/59 (69) 99 10/08/19 03:00 100.1 100.1 10/07/19 20:09 8.0 Intake and Output 10/08/19 07:00 Intake Total 915 ml Output Total 2860 ml Balance -1945 ml IV Total 915 ml Output Urine Total 2205 ml Chest Tube Drainage Total 190 ml Drainage Total 65 ml Other 400 ml Physical Exam Abdomen: Soft, Other (NGT in place, anasarcic) Heart: Regular rate (SR/ST), Other (distant heart sounds) Extremities: No cyanosis, Other (3+ bilateral LE pitting edema) General: Alert, Cooperative, No acute distress HEENT: Other (s/p tracheostomy) Lungs: Other (diminished bases, trach with trach shield, chest tube in place with serous fluid) Neuro: Other (nonverbal due to trach) Psych/Mental Status: Other (flat affect) Skin: No rashes, No significant lesion Diagnosis RENAL FAILURE: Acute (Acute tubular necrosis) Assessment Assessment 1. Severe acute gallstone pancreatitis with necrosis 2. Acute respiratory failure: presently has trach and chest tube. Pulmonary team following 3. Anasarca with severe protein malnutrition 4. Sepsis with MDRO: off pressor. BP low marginal but stable, not requiring pressors 5. Acute diastolic CHF: multifactorial as above. No SOA. 6. Normocytic anemia: Hgb stable at the 8s post multiple transfusion 7. Sinus tachycardia: Most probably physiologic 8. Severe JUANA requiring HD: last dialysis about a month ago Recommendations 1. Continue current regimen. Lasix PRN, TPN, albumin repletion 2. Lopressor PRN if BP allows for sustained SVTs. 3. 2D echo pending Plan Plan of Care Problems Medical Problems: (1) Acute pancreatitis Status: Acute (2) Cholelithiasis Status: Acute Comment Review of Relevant I have reviewed the following items kolby (where applicable) has been applied. Labs Laboratory Tests Test 10/07/19 12:25 10/07/19 14:43 10/07/19 23:40 10/08/19 05:50 Glucose (Fingerstick) 185 mg/dL (70-99) 147 mg/dL (70-99) Ionized Calcium 1.50 mmol/L (1.13-1.32) Iron Level 8 ug/dL (50-170) Total Iron Binding Capacity 56 ug/dL (250-450) Iron Saturation 14 % (15-34) White Blood Count 7.7 x10^3/uL (4.0-11.0) Red Blood Count 2.76 x10^6/uL (3.50-5.40) Hemoglobin 7.8 g/dL (12.0-15.5) Hematocrit 23.6 % (36.0-47.0) Mean Corpuscular Volume 85 fL (79-100) Mean Corpuscular Hemoglobin 28 pg (25-35) Mean Corpuscular Hemoglobin Concent 33 g/dL (31-37) Red Cell Distribution Width 18.2 % (11.5-14.5) Platelet Count 479 x10^3/uL (140-400) Neutrophils (%) (Auto) 74 % (31-73) Lymphocytes (%) (Auto) 16 % (24-48) Monocytes (%) (Auto) 9 % (0-9) Eosinophils (%) (Auto) 2 % (0-3) Basophils (%) (Auto) 0 % (0-3) Neutrophils # (Auto) 5.6 x10^3/uL (1.8-7.7) Lymphocytes # (Auto) 1.2 x10^3/uL (1.0-4.8) Monocytes # (Auto) 0.7 x10^3/uL (0.0-1.1) Eosinophils # (Auto) 0.1 x10^3/uL (0.0-0.7) Basophils # (Auto) 0.0 x10^3/uL (0.0-0.2) Sodium Level 137 mmol/L (136-145) Potassium Level 3.8 mmol/L (3.5-5.1) Chloride Level 103 mmol/L (98-107) Carbon Dioxide Level 28 mmol/L (21-32) Anion Gap 6 (6-14) Blood Urea Nitrogen 17 mg/dL (7-20) Creatinine 0.6 mg/dL (0.6-1.0) Estimated GFR (Cockcroft-Gault) 106.3 BUN/Creatinine Ratio 28 (6-20) Glucose Level 134 mg/dL (70-99) Calcium Level 9.4 mg/dL (8.5-10.1) Total Bilirubin 0.4 mg/dL (0.2-1.0) Aspartate Amino Transf (AST/SGOT) 17 U/L (15-37) Alanine Aminotransferase (ALT/SGPT) 18 U/L (14-59) Alkaline Phosphatase 101 U/L (46-116) Total Protein 4.4 g/dL (6.4-8.2) Albumin 1.1 g/dL (3.4-5.0) Albumin/Globulin Ratio 0.3 (1.0-1.7) Test 10/08/19 05:55 Glucose (Fingerstick) 131 mg/dL (70-99) Microbiology 10/06/19 Blood Culture - Preliminary, Resulted NO GROWTH AFTER 1 DAY 10/03/19 Gram Stain - Final, Resulted 10/03/19 Aerobic and Anaerobic Culture - Preliminary, Resulted 10/01/19 Gram Stain Evaluation - Final, Complete 10/01/19 Respiratory Culture - Final, Complete 10/01/19 Antimicrobic Susceptibility - Final, Complete 09/25/19 Urine Culture - Final, Complete 09/17/19 Gram Stain - Final, Complete 09/17/19 Aerobic Culture - Final, Complete Medications Current Medications Albumin Human 250 ml @ 62.5 mls/hr 1X ONCE IV Last administered on 10/07/19at 11:09; Start 10/07/19 at 11:00; Stop 10/07/19 at 14:59; Status DC Furosemide (Lasix) 20 mg 1X ONCE IVP Last administered on 10/07/19at 14:52; Start 10/07/19 at 10:45; Stop 10/07/19 at 10:49; Status DC Potassium Acetate 60 meq/Magnesium Sulfate 14 meq/ Multivitamins 10 ml/Chromium/ Copper/Manganese/ Seleni/Zn 1 ml/ Insulin Human Regular 15 unit/ Total Parenteral Nutrition/Amino Acids/Dextrose/ Fat Emulsion Intravenous 1,920 ml @ 80 mls/hr TPN CONT IV Last administered on 10/07/19at 22:08; Start 10/07/19 at 22:00; Stop 10/08/19 at 21:59 Potassium Acetate 60 meq/Magnesium Sulfate 14 meq/ Multivitamins 10 ml/Chromium/ Copper/Manganese/ Seleni/Zn 1 ml/ Insulin Human Regular 15 unit/ Total Parenteral Nutrition/Amino Acids/Dextrose/ Fat Emulsion Intravenous 1,920 ml @ 80 mls/hr TPN CONT IV ; Start 10/08/19 at 22:00; Stop 10/09/19 at 21:59 Vitals/I & O Vital Sign - Last 24 Hours 10/07/19 10/07/19 10/07/19 10/07/19 11:00 11:35 12:00 12:00 Temp 98.3 98.3 Pulse 118 111 Resp 18 18 B/P (MAP) 102/59 (73) 95/49 (64) Pulse Ox 100 98 100 O2 Delivery Tracheal Collar Trach Collar Tracheal Collar Tracheal Collar O2 Flow Rate 9.0 10/07/19 10/07/19 10/07/19 10/07/19 12:29 13:00 13:00 14:00 Pulse 112 114 Resp 26 B/P (MAP) 105/58 (74) 101/65 (77) Pulse Ox 98 99 97 98 O2 Delivery Tracheal Collar Tracheal Collar Tracheal Collar Tracheal Collar 10/07/19 10/07/19 10/07/19 10/07/19 15:00 15:37 16:00 16:00 Pulse 118 128 Resp 24 31 B/P (MAP) 120/74 (89) 108/94 (99) Pulse Ox 100 97 93 O2 Delivery Tracheal Collar Tracheal Collar Trach Collar Tracheal Collar O2 Flow Rate 9.0 10/07/19 10/07/19 10/07/19 10/07/19 17:00 18:00 19:00 20:00 Temp 100.7 97.8 100.7 97.8 Pulse 123 120 115 114 Resp 22 22 B/P (MAP) 108/72 (84) 107/63 (78) 107/59 (75) 101/64 (76) Pulse Ox 99 99 99 98 O2 Delivery Tracheal Collar Tracheal Collar Tracheal Collar Tracheal Collar 10/07/19 10/07/19 10/07/19 10/07/19 20:05 20:09 21:00 22:00 Pulse 116 110 Resp 22 B/P (MAP) 103/70 (81) 99/61 (74) Pulse Ox 98 99 99 O2 Delivery Trach Collar Tracheal Collar Tracheal Collar Tracheal Collar O2 Flow Rate 8.0 10/07/19 10/07/19 10/08/19/20/20 23:00 23:45 00:00 00:03 Temp 98.2 98.2 Pulse 108 108 Resp B/P (MAP) 102/58 (73) 97/56 (70) Pulse Ox 99 99 98 O2 Delivery Tracheal Collar Trach Collar Tracheal Collar Ventilator 10/08/19 10/08/19 10/08/19 10/08/19 01:00 02:00 03:00 04:00 Temp 100.1 100.1 Pulse 94 108 108 Resp B/P (MAP) 96/49 (65) 92/56 (68) 102/58 (73) Pulse Ox 99 99 99 O2 Delivery Ventilator Ventilator Tracheal Collar Mechanical Ventilator 10/08/19 10/08/19 10/08/19 10/08/19 04:00 04:00 04:08 05:00 Pulse 108 108 108 Resp B/P (MAP) 92/56 (68) 92/56 (68) 90/53 (65) Pulse Ox 99 99 98 99 O2 Delivery Ventilator Ventilator Ventilator Ventilator 10/08/19 10/08/19 10/08/19 10/08/19 05:00 05:56 06:00 06:00 Pulse 108 106 108 Resp B/P (MAP) 92/56 (68) 89/58 (68) 89/59 (69) Pulse Ox 99 100 99 99 O2 Delivery Ventilator Ventilator Ventilator Ventilator 10/08/19 08:00 O2 Delivery Mechanical Ventilator Intake and Output 10/07/19 10/07/19 10/08/19 15:00 23:00 07:00 Intake Total 915 ml Output Total 800 ml 1635 ml 425 ml Balance -800 ml -1635 ml 490 ml JUANITA GARCIA MD Oct 08, 2019 10:18
[2019-10-08] MEDS: MICAFUNGIN 100 MG in IV DEXTROSE 5% 100ML 100 ML IV SCH (13:05)
[2019-10-08] MEDS ORDERED: AMINO ACID IV SCH ×8 (22:00)
[2019-10-08] MEDS ORDERED: [UNRECOGNIZED DRUG - OTHER] IV SCH ×8 (22:00)
[2019-10-08] MEDS ORDERED: TOTAL PARENTERAL NUTRITION IV SCH ×8 (22:00)
[2019-10-08] MEDS ORDERED: DEXTROSE 70% IV SCH ×8 (22:00)
[2019-10-09] VITALS (18 sets, daily range): BP systolic 82–138; BP diastolic 42–78
[2019-10-09] MEDS: IPRATRPIUM/ALBUTEROL 0.5/2.5MG 3 ML NEBU. NEB SCH ×7 (04:00→23:45)
[2019-10-09 05:34] LABS: ALBUMIN/GLOBULIN RATIO 0.3 (1.0-1.7); CALCIUM 9.8 mg/dL (8.5-10.1); CREATININE 0.6 mg/dL (0.6-1.0); GFR 106.3; TOTAL BILIRUBIN 0.4 mg/dL (0.2-1.0); TOTAL PROTEIN 4.3 g/dL (6.4-8.2)
[2019-10-09] MEDS: INSULIN LISPRO 300 UNITS/3 ML VIAL. SQ SCH ×3 (05:43→18:00)
[2019-10-09 05:56] LABS: BASO % 0 % (0-3); EOS # 0.1 x10^3/uL (0.0-0.7); EOS % 1 % (0-3); HEMATOCRIT 26.3 % (36.0-47.0); LYMPH # 1.8 x10^3/uL (1.0-4.8); LYMPH % 17 % (24-48); MEAN CORPUSCULAR HEMOGLOBIN 29 pg (25-35); MEAN CORPUSCULAR HGB CONC 34 g/dL (31-37); MEAN CORPUSCULAR VOLUME 85 fL (79-100); MONO # 0.8 x10^3/uL (0.0-1.1); MONO % 7 % (0-9); NEUT # 7.7 x10^3/uL (1.8-7.7); NEUT % 74 % (31-73); PLATELET COUNT 448 x10^3/uL (140-400); RED CELL DISTRIBUTION WIDTH 17.4 % (11.5-14.5); WHITE BLOOD COUNT 10.3 x10^3/uL (4.0-11.0)
--- NOTE | 2019-10-09 06:38 | PDOC ---
PULMONARY PROGRESS NOTES Subjective on vent, on propofol, off vent during day/ ct drainage 210 cc/24 hrs Patient intubated on 07/10 , s/p trach 07/24, transferred back to ICU 09/22 for syncope with collapse developed anemia, blood drainage from RLQ abdomen drain site, and surrounding firmness / developed septic shock 09/24 from abdomen source, required levo 09/24 s/p 3 new drains 09/24 with brown color drainage/ oozing fluid around drains Vitals Vital Signs Date Time Temp Pulse Resp B/P (MAP) Pulse Ox O2 Delivery O2 Flow Rate FiO2 10/09/19 06:00 110 20 93/50 (64) 99 Ventilator 10/09/19 04:00 100.3 100.3 10/08/19 12:34 9.0 Comments awake,no soa General: Alert, No acute distress HEENT: Other (nc at perrl nose clear neck trach site ok no lab no thyromegaly) Lungs: Other (diminshed in bases, Rhonci in LLL) Cardiovascular: S1, S2 Abdomen: Soft, Non-tender, Other (bleeding from Sx. site RLQ and firmness) Extremities: Other (+1 BLE edema) Skin: Warm, Dry Labs Laboratory Tests Test 10/07/19 12:25 10/07/19 14:43 10/07/19 23:40 10/08/19 05:50 Glucose (Fingerstick) 185 mg/dL (70-99) 147 mg/dL (70-99) Ionized Calcium 1.50 mmol/L (1.13-1.32) Iron Level 8 ug/dL (50-170) Total Iron Binding Capacity 56 ug/dL (250-450) Iron Saturation 14 % (15-34) White Blood Count 7.7 x10^3/uL (4.0-11.0) Red Blood Count 2.76 x10^6/uL (3.50-5.40) Hemoglobin 7.8 g/dL (12.0-15.5) Hematocrit 23.6 % (36.0-47.0) Mean Corpuscular Volume 85 fL (79-100) Mean Corpuscular Hemoglobin 28 pg (25-35) Mean Corpuscular Hemoglobin Concent 33 g/dL (31-37) Red Cell Distribution Width 18.2 % (11.5-14.5) Platelet Count 479 x10^3/uL (140-400) Neutrophils (%) (Auto) 74 % (31-73) Lymphocytes (%) (Auto) 16 % (24-48) Monocytes (%) (Auto) 9 % (0-9) Eosinophils (%) (Auto) 2 % (0-3) Basophils (%) (Auto) 0 % (0-3) Neutrophils # (Auto) 5.6 x10^3/uL (1.8-7.7) Lymphocytes # (Auto) 1.2 x10^3/uL (1.0-4.8) Monocytes # (Auto) 0.7 x10^3/uL (0.0-1.1) Eosinophils # (Auto) 0.1 x10^3/uL (0.0-0.7) Basophils # (Auto) 0.0 x10^3/uL (0.0-0.2) Sodium Level 137 mmol/L (136-145) Potassium Level 3.8 mmol/L (3.5-5.1) Chloride Level 103 mmol/L (98-107) Carbon Dioxide Level 28 mmol/L (21-32) Anion Gap 6 (6-14) Blood Urea Nitrogen 17 mg/dL (7-20) Creatinine 0.6 mg/dL (0.6-1.0) Estimated GFR (Cockcroft-Gault) 106.3 BUN/Creatinine Ratio 28 (6-20) Glucose Level 134 mg/dL (70-99) Calcium Level 9.4 mg/dL (8.5-10.1) Total Bilirubin 0.4 mg/dL (0.2-1.0) Aspartate Amino Transf (AST/SGOT) 17 U/L (15-37) Alanine Aminotransferase (ALT/SGPT) 18 U/L (14-59) Alkaline Phosphatase 101 U/L (46-116) Total Protein 4.4 g/dL (6.4-8.2) Albumin 1.1 g/dL (3.4-5.0) Albumin/Globulin Ratio 0.3 (1.0-1.7) Test 10/08/19 05:55 10/08/19 13:03 10/08/19 23:59 10/09/19 05:15 Glucose (Fingerstick) 131 mg/dL (70-99) 170 mg/dL (70-99) 132 mg/dL (70-99) White Blood Count 10.3 x10^3/uL (4.0-11.0) Red Blood Count 3.10 x10^6/uL (3.50-5.40) Hemoglobin 9.0 g/dL (12.0-15.5) Hematocrit 26.3 % (36.0-47.0) Mean Corpuscular Volume 85 fL (79-100) Mean Corpuscular Hemoglobin 29 pg (25-35) Mean Corpuscular Hemoglobin Concent 34 g/dL (31-37) Red Cell Distribution Width 17.4 % (11.5-14.5) Platelet Count 448 x10^3/uL (140-400) Neutrophils (%) (Auto) 74 % (31-73) Lymphocytes (%) (Auto) 17 % (24-48) Monocytes (%) (Auto) 7 % (0-9) Eosinophils (%) (Auto) 1 % (0-3) Basophils (%) (Auto) 0 % (0-3) Neutrophils # (Auto) 7.7 x10^3/uL (1.8-7.7) Lymphocytes # (Auto) 1.8 x10^3/uL (1.0-4.8) Monocytes # (Auto) 0.8 x10^3/uL (0.0-1.1) Eosinophils # (Auto) 0.1 x10^3/uL (0.0-0.7) Basophils # (Auto) 0.0 x10^3/uL (0.0-0.2) Sodium Level 136 mmol/L (136-145) Potassium Level 4.0 mmol/L (3.5-5.1) Chloride Level 102 mmol/L (98-107) Carbon Dioxide Level 29 mmol/L (21-32) Anion Gap 5 (6-14) Blood Urea Nitrogen 15 mg/dL (7-20) Creatinine 0.6 mg/dL (0.6-1.0) Estimated GFR (Cockcroft-Gault) 106.3 BUN/Creatinine Ratio 25 (6-20) Glucose Level 133 mg/dL (70-99) Calcium Level 9.8 mg/dL (8.5-10.1) Total Bilirubin 0.4 mg/dL (0.2-1.0) Aspartate Amino Transf (AST/SGOT) 19 U/L (15-37) Alanine Aminotransferase (ALT/SGPT) 15 U/L (14-59) Alkaline Phosphatase 113 U/L (46-116) Total Protein 4.3 g/dL (6.4-8.2) Albumin 1.0 g/dL (3.4-5.0) Albumin/Globulin Ratio 0.3 (1.0-1.7) Laboratory Tests Test 10/08/19 13:03 10/08/19 23:59 10/09/19 05:15 Glucose (Fingerstick) 170 mg/dL (70-99) 132 mg/dL (70-99) White Blood Count 10.3 x10^3/uL (4.0-11.0) Red Blood Count 3.10 x10^6/uL (3.50-5.40) Hemoglobin 9.0 g/dL (12.0-15.5) Hematocrit 26.3 % (36.0-47.0) Mean Corpuscular Volume 85 fL (79-100) Mean Corpuscular Hemoglobin 29 pg (25-35) Mean Corpuscular Hemoglobin Concent 34 g/dL (31-37) Red Cell Distribution Width 17.4 % (11.5-14.5) Platelet Count 448 x10^3/uL (140-400) Neutrophils (%) (Auto) 74 % (31-73) Lymphocytes (%) (Auto) 17 % (24-48) Monocytes (%) (Auto) 7 % (0-9) Eosinophils (%) (Auto) 1 % (0-3) Basophils (%) (Auto) 0 % (0-3) Neutrophils # (Auto) 7.7 x10^3/uL (1.8-7.7) Lymphocytes # (Auto) 1.8 x10^3/uL (1.0-4.8) Monocytes # (Auto) 0.8 x10^3/uL (0.0-1.1) Eosinophils # (Auto) 0.1 x10^3/uL (0.0-0.7) Basophils # (Auto) 0.0 x10^3/uL (0.0-0.2) Sodium Level 136 mmol/L (136-145) Potassium Level 4.0 mmol/L (3.5-5.1) Chloride Level 102 mmol/L (98-107) Carbon Dioxide Level 29 mmol/L (21-32) Anion Gap 5 (6-14) Blood Urea Nitrogen 15 mg/dL (7-20) Creatinine 0.6 mg/dL (0.6-1.0) Estimated GFR (Cockcroft-Gault) 106.3 BUN/Creatinine Ratio 25 (6-20) Glucose Level 133 mg/dL (70-99) Calcium Level 9.8 mg/dL (8.5-10.1) Total Bilirubin 0.4 mg/dL (0.2-1.0) Aspartate Amino Transf (AST/SGOT) 19 U/L (15-37) Alanine Aminotransferase (ALT/SGPT) 15 U/L (14-59) Alkaline Phosphatase 113 U/L (46-116) Total Protein 4.3 g/dL (6.4-8.2) Albumin 1.0 g/dL (3.4-5.0) Albumin/Globulin Ratio 0.3 (1.0-1.7) Medications Active Scripts Medications Dose Route/Sig Max Daily Dose Days Date Category Bisoprolol Fumarate 5 Mg Tablet 10 Mg PO DAILY 07/04/19 Reported Comments CXR improved right effusion/ atelectasis ct abdomen /pelvis 09/23 1. Removal of the percutaneous pigtail drainage catheters since the prior exam. Sequela of pancreatitis with extensive pseudocysts again demonstrated, the right-sided collections are slightly larger since the prior exam, the left-sided collections are stable. See above. 2. Moderate to large left pleural effusion with atelectasis and collapse of most of the left lower lobe, stable. Small right pleural effusion is stable. 3. Gallstone. ct chest 10/02 reviewed Impression . IMPRESSION: 1. Acute hypoxemic respiratory failure secondary to ARDS status post trach, de veloped anemia 09/24, blood drainage from RLQ abdomen drain site, and surrounding firmness / developed septic shock 09/24 from abdomen source, required levo /7 s/p 3 new drains 09/24 with brown color drainage, back on vent 09/30, on/off vent 2. Gallstone pancreatitis, now with ongoing bleeding from prior drain. Anemic. s/p Tx multiple units over several days 3. septic shock/sepsis, recurrent 09/24, source abdomen. , off levo now, 4. Acute kidney injury-, Off HD--renal function decling. suspect JUANA on CKD due to hypotension , improved now 5. Acute gallstone pancreatitis. 6. Hypoalbuminemia. 7. Moderate persistent effusions, s/p left thora 08/29, reaccumulation of left effusion. O2 requirement not changed. 8. Fever- ,hypotension. suspect recurrent sepsis/ likely pancreatic source. Per ID, per surgery-- 9. Chronic anemia-- ongoing / s/p PRBC 10. Covid 19 testing negative 11. Moderate to large ascites-S/P paracentisis 12.S/P paracentisis with 4 liters removed on 08/03/19 13. S/P IR drain placement on 08/26/2019, removal, re inserted 09/24 14. Depression/Anxiety 15. Increase effusion, ? loculated/ s/p chest tube.. drainage slowing down. 190 cc /24 hr Plan . 1. TS as tolerated titrate fio2 to keep sat 94%, off vent as much as she can tolerate 2. Follow all cultures/ PSA from pelvic drains. Abx per ID/ thoracentesis result transudate, await c/s, 3. Follow surgery recs-- Acute pancreatitis with persistent necrosis ---- 08/14 status post KAYLIN drain placement + C paropsilosis; 08/23 + yeast & high amylase; s/p additional drains on 08/25, removal of drains and now increase pseudocyst and increase fluid collection. likely infected fluid/ sepsis. on BS abx.follow surgery rec, planning surgical intervention next few weeks 4. Follow ID recs for ABX---- 5. Follow nephrology recs ----- 6. Continue TPN 7. monitor HGB, 4 units since 09/23--monitor HGB transfuse if less than 8.5 8 s/p thoracentesis, 08/29, 3 litres removed, s/p ct on 10/02. ct drainage, 210 cc over the past 24 hrs, suction -40, am cxr 9. Pt remains critically ill from severe necrotic pancreatis. Even with surgery prognosis grim. Surgery informed family. 10. lasix/albumin prn DVT/GI PPX: protonix--- holding lovenox 2/2 anemia PT/OT D/W RN, rt TEN WHITFIELD MD Oct 09, 2019 06:38
--- NOTE | 2019-10-09 08:06 | PDOC ---
Infectious Disease Note Subjective Subjective s/p PRBCs transfusion Low-grade fever, Tmax 100.3 Trach shield, FiO2 33% and 5L No fever N/V since yesterday morning TPN ROS ROS unobtainable Vital Sign Vital Signs Vital Signs Date Time Temp Pulse Resp B/P (MAP) Pulse Ox O2 Delivery O2 Flow Rate FiO2 10/09/19 06:00 110 20 93/50 (64) 99 Ventilator 10/09/19 04:00 100.3 100.3 10/08/19 12:34 9.0 Physical Exam PHYSICAL EXAM GENERAL: Propped up in bed, resting quietly HEENT: NGT in place. NECK: Tracheostomy LUNGS: Diminished aeration bases, no accessory muscle use - CT on left with clear fluid HEART: S1, S2,regular ABDOMEN: Mild distention, bowel sounds present, soft, grimaces to palpation, drains x 3 : Lind ( 09/24) EXTREMITIES: + edema BLE SKIN: no signs of gen rash LUE-PICC (09/15) without signs of complications Labs Lab Laboratory Tests Test 10/08/19 13:03 10/08/19 23:59 10/09/19 05:15 Glucose (Fingerstick) 170 mg/dL (70-99) 132 mg/dL (70-99) White Blood Count 10.3 x10^3/uL (4.0-11.0) Red Blood Count 3.10 x10^6/uL (3.50-5.40) Hemoglobin 9.0 g/dL (12.0-15.5) Hematocrit 26.3 % (36.0-47.0) Mean Corpuscular Volume 85 fL (79-100) Mean Corpuscular Hemoglobin 29 pg (25-35) Mean Corpuscular Hemoglobin Concent 34 g/dL (31-37) Red Cell Distribution Width 17.4 % (11.5-14.5) Platelet Count 448 x10^3/uL (140-400) Neutrophils (%) (Auto) 74 % (31-73) Lymphocytes (%) (Auto) 17 % (24-48) Monocytes (%) (Auto) 7 % (0-9) Eosinophils (%) (Auto) 1 % (0-3) Basophils (%) (Auto) 0 % (0-3) Neutrophils # (Auto) 7.7 x10^3/uL (1.8-7.7) Lymphocytes # (Auto) 1.8 x10^3/uL (1.0-4.8) Monocytes # (Auto) 0.8 x10^3/uL (0.0-1.1) Eosinophils # (Auto) 0.1 x10^3/uL (0.0-0.7) Basophils # (Auto) 0.0 x10^3/uL (0.0-0.2) Sodium Level 136 mmol/L (136-145) Potassium Level 4.0 mmol/L (3.5-5.1) Chloride Level 102 mmol/L (98-107) Carbon Dioxide Level 29 mmol/L (21-32) Anion Gap 5 (6-14) Blood Urea Nitrogen 15 mg/dL (7-20) Creatinine 0.6 mg/dL (0.6-1.0) Estimated GFR (Cockcroft-Gault) 106.3 BUN/Creatinine Ratio 25 (6-20) Glucose Level 133 mg/dL (70-99) Calcium Level 9.8 mg/dL (8.5-10.1) Total Bilirubin 0.4 mg/dL (0.2-1.0) Aspartate Amino Transf (AST/SGOT) 19 U/L (15-37) Alanine Aminotransferase (ALT/SGPT) 15 U/L (14-59) Alkaline Phosphatase 113 U/L (46-116) Total Protein 4.3 g/dL (6.4-8.2) Albumin 1.0 g/dL (3.4-5.0) Albumin/Globulin Ratio 0.3 (1.0-1.7) Micro Pleural fluid, 10/02 ANAEROBIC-AEROBIC CULTURE Preliminary Preliminary No Growth on 10/04/19 at 1117 No Growth on 10/05/19 at 1038 10/05. BLOOD CULTURE Preliminary NO GROWTH AFTER 2 DAYS Objective Assessment Patient with prolonged hospitalization Multiple medical problems Multiple surgical procedures Vomiting - better Fever 10/05 WBC nml - Added cipro 10/05 with h/p res PSA in sputum maybe sec to ileus given her vomiting. Art- line placed 09/24 - d/c'd 10/05 Respiratory failure/trach/vent: sputum 09/30 + PSAE (I merrem) Pleural effusions s/p left thoracentesis, 5/12. no culture. s/p left chest tube, 10/02 no growth Gallstone pancreatitis with necrosis. -CT A/P 09/23 showed multiple pseudocysts, slight larger on the right. s/p drains x 3, 09/24. + PSAE (MDRO-R Cefepime, Zosyn ALEXANDRA < 64) and yeast, -s/p drain 08/14. C. parapsilosis. s/p drain 08/23 + yeast & high amylase; s/p additional drain on 08/25. Drains removed. Ascites s/p paracentesis 08/02 & 08/23. C. parapsilosis JUANA. off HD. Anemia s/p PRBCs 10/07 Prediabetes HTN Plan Plan of Care Continue cipro 10/05. sputum from 09/30 - growing PSA - may be colonization (I to Meropenem), clinically stable from resp standpoint Continue meropenem, has MDRO PSAE September 24 from abd Continue micafungin September 24 Follow-up cultures fluid for yeast ID Monitor labs/temp General surgery following Monitor drain output Maintain aspiration precaution Supportive care Contact islation for CRE/MDRO [facility] micro [phone] Critically ill Attending Co-Sign The patient was seen and interviewed as well as examined at the bedside. The chart was reviewed. The case was discussed. Agree with the plan of care. FRANCA HOBSON APRN Oct 09, 2019 08:06 KIMMY JONES MD Oct 09, 2019 10:20
[2019-10-09] MEDS: PANTOPRAZOLE IV PUSH 40 MG VIAL. IVP SCH (08:49)
[2019-10-09] MEDS: CIPROFLOXACIN 400MG PREMIX 200 ML IV SCH ×2 (08:50→22:21)
[2019-10-09] MEDS: ONDANSETRON PF 4 MG/2 ML VIAL. IV PRN (08:51)
[2019-10-09] MEDS: MEROPENEM 1 GM in IV NORMAL SALINE 100ML 100 ML IV SCH ×2 (08:51→22:20)
--- NOTE | 2019-10-09 11:12 | PDOC ---
PROGRESS NOTES Chief Complaint Chief Complaint impression History of Present Illness 48yo F w/ PMHx HTN, prediabetes who presented the emergency room complaints of abdominal pain. Patient described off and on 3 days. She states is constant, described as a squeezing sensation in a band-like distribution. + nausea, vomiting. She denies any fever or diarrhea. Patient denies any abdominal surgical procedures. She stateed is worse with movements, car ride. Pain initially was upper abdomen however now pretty much generalized. Last bowel movement was 07/03/2019. Nothing makes her pain better. Patient denies any shortness of breath. She does state the pain moves into her chest. Denies any headache or visual changes. Lipase 51782, AST 401, ALT 249, Bilirubin 1.4. CT abdomen confirms pancreatic inflammation, peripancreatic fluid and inflammatory changes around the pancreas consistent with pancreatitis. Cholelithiasis and 1.4cm uterine fibroid as well as possible left salpingitis. Admitted for further care Gallstone pancreatitis with necrosis. -CT A/P 09/23 showed multiple pseudocysts, slight larger on the right. s/p drains x , 09/24. + PSAE (MDRO-R Cefepime, Zosyn ALEXANDRA < 64) and yeast, -s/p drain 08/14. C. parapsilosis. s/p drain 08/23 + yeast & high amylase; s/p additional drain on 08/25. Drains removed. Ascites s/p paracentesis 08/02 & 08/23. C. parapsilosis JUANA. off HD. impression Acute hypoxic Respiratory failure required mechanical ventilation Tracheostomy bilateral pleural effusions/pulm edema s/p Throacentesis on 10/03/2019 Severe Acute gallstone pancreatitis (not a surgical candidate at this time) with necrosis Acute kidney failure now requiring dialysis Gallstones (Calculus of gallbladder with acute cholecystitis without obstruction) HTN Intractable pain Intractable nausea Covid 19 negative. Acute on chronic anemia EEG: No seizure activityFever - better currently - intermittent could be from underlying pancreatitis blood cults 08/21 - neg so far ? Ileus with vomiting Abd distention - U/S and CT reviewed s/p 0.4 L of opaque, debris-containing ascites was removed 08/23 Acute pancreatitis with persistent necrosis Gallstone pancreatitis with necrosis. -CT A/P 09/23 showed multiple pseudocysts, slight larger on the right. s/p drains x 3, 09/24. + PSAE (MDRO-R Cefepime, Zosyn ALEXANDRA < 64) and yeast, -s/p drain 08/14. C. parapsilosis. s/p drain 08/23 + yeast & high amylase; s/p additional drain on 08/25. Drains removed. Ascites s/p paracentesis 08/02 & 08/23. C. parapsilosis JUANA. off HD. A large fluid collection in the pancreatic bed has slightly decreased in size, described below, the pancreas itself is difficult to visualize, which could be due to necrosis or obscuration of pancreatic parenchyma from the surrounding fluid collection.10/02 - 08/14 status post KAYLIN drain placement + C paropsilosis. s/p additional drains 08/25 Anemia - S/p PRBCs Cholelithiasis with thickening of the gallbladder wall. Leucocytosis improving JUANA, hyperkalemia, Metabolic acidosis off dialysis hypocalcemia Prediabetes HTN s/p trach ESRD on HD Hyperglycemia severe protein-caloric malnutrition Moderate to large left pleural effusion with atelectasis and collapse of most of the left lower lobe, stable 10/05 FEVER 101, BLOOD CULTURE X 2 10/06 iv cipro added 10/07 vent fio2 35% FEN - PPX - SCDs, off lovenox currently, high risk for thrombosis but in light of her recent anemia and need for transfusion the risks do not outweigh benefits at this time. will continue to evaluate on a daily basis FULL CODE Dispo - ICU, critically ill BACK ON VENT 10/04 vent // no distress iv albumin 10/06 Continue meropenem, has MDRO PSAE September 24 Continue micafungin September 24 33 MIN CC TIME History of Present Illness History of Present Illness 09/25: IR placed drain on 09/24. 4u PRBC after Hb drop. Hb 8.8 today. Off Levophed this morning. T-max 100.3. Much more lethargic today. CXR with left sided diffus e infiltrates. 09/26: Tachycardic overnight into the 140s. NGT clamped. On BIPAP currently. Drains with serosanguinous discharge. WBC 8, Tmax 99.6F. 09/27: Seen on trach shield in ICU. Hypertensive and tachycardic. Labs stable. blood stained drainage from drains. Afebrile. 09/28: Seen on trach shield in ICU. She is a bit confused, drowsy, but when sitting up is conversational and confusion somewhat clears. She is asking for more pain medication. Stable drains, still very tachy.Na 147 09/29: Patient vomited overnight. Aspirated. Tried to pull her trach out, she was told she would without her trach, she said "I know, I just want to go home". Hb 7.6. Afebrile, still very tachycardic. 1055ml out of right sided KAYLIN drain 09/30: Overnight hypoxic, on BIPAP. CXR with left sided white out lung. Significant mucous plug suctioned by RT with improvement in her ABG after 2 hours this morning. Not really active, tired, lethargic. 890ml out of drains past 24 hours. On vent. D/w daughter bedside. 10/01: Still on vent overnight with copious pulmonary drainage on suctioning. Labs stable, UOP stable 1L. Drain output still significant with 1505mL. She has shown her phone password [id number] and made it clear she does not want her daughters to access her phone at this time. 6:15: Patient quite frail, she has had such a lengthy hospital stay that she is certainly depressed and as documented 3 days ago is wanting to go home. Most likely patient is also tired of being hospitalized with an end point no where in sight. Reassurance and encouragement provided during my visit. Plans for thoracentesis later in the day 10/03: No acute events reported overnight, case discussed with nursing staff patient in no acute distress, complaints of the abdomimal pain during my visit, patient is quite depressed, reassurance has been provided, discussed with nursing staff at bedside, replace electrolytes 10/04 off vent / on TS , no distress 10/07 Patient seen and examined ICU BED critically ill guardedlong-term prognosis Sputum from 09/30 - growing PSA - may be colonization I to Meropenem add Cipro Continue meropenem, has MDRP PSAE September 24 from abd cont micafungin September 24 bleeding from Sx. site RLQ and firmness) max 1003 oncology consulted 37 MIN CC TIME Date: Aug 15, 2019 Pre-Op Diagnosis: Necrotizing pancreatitis Post-Op Diagnosis: same Procedure Performed: laparoscopic exploration Surgeon: Renzo Servin Asst: Dr. Arturo Harris Anesthesia Type: GETA plus local Blood Loss: 50 Specimans Obtained: cultures, debris Findings: 1000 cc ascites suctioned off, cultures sent, diffuse debris, obliteration of surgical planes preventing any meaningful exploration 09/21/2019 Patient seen and examined in the ICU She remains critically ill We have been trying to hold off on her Ativan for the past 24 hours She is a little more awake but shaky and agitated and anxious seems depressed Discussed with RN Chart reviewed 09/20/2019 Patient seen and examined in the ICU She is a little more alert today but still quite ill Appears clammy and pale and depressed/anxious Discussed with RN Chart reviewed 09/19/2019 Patient seen and examined in the ICU She appears extremely ill She is tachypneic at 35 respirations per minute and tachycardic at 132 bpm She is extremely encephalopathic and shaky She appears clammy Chart reviewed Discussed with RN Prognosis extremely guarded at best 09/18/2019 Patient still in ICU Resting with no apparent distress Chart reviewed 09/17/2019 Patient seen and examined in the ICU She is wiping her face with a cough Discussed with RN Chart reviewed We hope to get her out of the ICU later today if possible 09/16/2019 Patient seen and examined in the ICU once again She is back on NG suction On IV Zosyn Has IV TPN Sedated with Precedex but anxious still Appears somewhat clammy and pale Chart reviewed Discussed with RN She remains critically ill BRIEF OPERATIVE NOTE Pre-Op Diagnosis Pancreatitis with pseudocysts, suspected infection Post-Op Diagnosis same Procedure Performed CT abdominal Drains x 3 Surgeon Tesfaye Anesthesia Type: Conscious Sedation Findings 3 abdominal drains, 14F, with turbid pancreatic fluid and necrotic debris in each. Complications No immediate 08/26: Patient today somewhat restless and having bilious secretions from ET tube, imaging studies ordered, discussed with programmer analyst consultant. Pretty poor prognosis, hopefully is not a fistula, poor surgical candidate. 08/27: Imaging with no acute events, she seems more stable today compared to yesterday. Encouraged as much activity as possible patient at high risk for severe depression. Vitals Vitals Vital Signs Date Time Temp Pulse Resp B/P (MAP) Pulse Ox O2 Delivery O2 Flow Rate FiO2 10/09/19 10:00 121 21 102/51 (68) 98 Ventilator 10/09/19 08:02 5.0 10/09/19 08:00 100.1 100.1 Physical Exam Physical Exam GENERAL: Propped up in bed, resting quietly HEENT: NGT in place. NECK: Tracheostomy LUNGS: Diminished aeration bases, no accessory muscle use - CT on left with clear fluid HEART: S1, S2,regular ABDOMEN: Mild distention, bowel sounds present, soft, grimaces to palpation, drains x 3 : Lind ( 09/24) EXTREMITIES: + edema BLE SKIN: no signs of gen rash LUE-PICC (09/15) without signs of complications General: Alert, Cooperative, No acute distress Heart: Regular rate (SR/ST), Other (distant heart sounds) Lungs: Other (diminshed in bases, Rhonci in LLL) Abdomen: Soft, Other (NGT in place, anasarcic) Extremities: No cyanosis, Other (3+ bilateral LE pitting edema) Skin: No rashes, No significant lesion Labs LABS Laboratory Tests Test 10/08/19 13:03 10/08/19 23:59 10/09/19 05:15 Glucose (Fingerstick) 170 mg/dL (70-99) 132 mg/dL (70-99) White Blood Count 10.3 x10^3/uL (4.0-11.0) Red Blood Count 3.10 x10^6/uL (3.50-5.40) Hemoglobin 9.0 g/dL (12.0-15.5) Hematocrit 26.3 % (36.0-47.0) Mean Corpuscular Volume 85 fL (79-100) Mean Corpuscular Hemoglobin 29 pg (25-35) Mean Corpuscular Hemoglobin Concent 34 g/dL (31-37) Red Cell Distribution Width 17.4 % (11.5-14.5) Platelet Count 448 x10^3/uL (140-400) Neutrophils (%) (Auto) 74 % (31-73) Lymphocytes (%) (Auto) 17 % (24-48) Monocytes (%) (Auto) 7 % (0-9) Eosinophils (%) (Auto) 1 % (0-3) Basophils (%) (Auto) 0 % (0-3) Neutrophils # (Auto) 7.7 x10^3/uL (1.8-7.7) Lymphocytes # (Auto) 1.8 x10^3/uL (1.0-4.8) Monocytes # (Auto) 0.8 x10^3/uL (0.0-1.1) Eosinophils # (Auto) 0.1 x10^3/uL (0.0-0.7) Basophils # (Auto) 0.0 x10^3/uL (0.0-0.2) Sodium Level 136 mmol/L (136-145) Potassium Level 4.0 mmol/L (3.5-5.1) Chloride Level 102 mmol/L (98-107) Carbon Dioxide Level 29 mmol/L (21-32) Anion Gap 5 (6-14) Blood Urea Nitrogen 15 mg/dL (7-20) Creatinine 0.6 mg/dL (0.6-1.0) Estimated GFR (Cockcroft-Gault) 106.3 BUN/Creatinine Ratio 25 (6-20) Glucose Level 133 mg/dL (70-99) Calcium Level 9.8 mg/dL (8.5-10.1) Total Bilirubin 0.4 mg/dL (0.2-1.0) Aspartate Amino Transf (AST/SGOT) 19 U/L (15-37) Alanine Aminotransferase (ALT/SGPT) 15 U/L (14-59) Alkaline Phosphatase 113 U/L (46-116) Total Protein 4.3 g/dL (6.4-8.2) Albumin 1.0 g/dL (3.4-5.0) Albumin/Globulin Ratio 0.3 (1.0-1.7) Assessment and Plan Assessmemt and Plan Problems Medical Problems: (1) Acute pancreatitis Status: Acute (2) Cholelithiasis Status: Acute Comment Review of Relevant I have reviewed the following items kolby (where applicable) has been applied. Labs Laboratory Tests Test 10/07/19 12:25 10/07/19 14:43 10/07/19 23:40 10/08/19 05:50 Glucose (Fingerstick) 185 mg/dL (70-99) 147 mg/dL (70-99) Ionized Calcium 1.50 mmol/L (1.13-1.32) Iron Level 8 ug/dL (50-170) Total Iron Binding Capacity 56 ug/dL (250-450) Iron Saturation 14 % (15-34) White Blood Count 7.7 x10^3/uL (4.0-11.0) Red Blood Count 2.76 x10^6/uL (3.50-5.40) Hemoglobin 7.8 g/dL (12.0-15.5) Hematocrit 23.6 % (36.0-47.0) Mean Corpuscular Volume 85 fL (79-100) Mean Corpuscular Hemoglobin 28 pg (25-35) Mean Corpuscular Hemoglobin Concent 33 g/dL (31-37) Red Cell Distribution Width 18.2 % (11.5-14.5) Platelet Count 479 x10^3/uL (140-400) Neutrophils (%) (Auto) 74 % (31-73) Lymphocytes (%) (Auto) 16 % (24-48) Monocytes (%) (Auto) 9 % (0-9) Eosinophils (%) (Auto) 2 % (0-3) Basophils (%) (Auto) 0 % (0-3) Neutrophils # (Auto) 5.6 x10^3/uL (1.8-7.7) Lymphocytes # (Auto) 1.2 x10^3/uL (1.0-4.8) Monocytes # (Auto) 0.7 x10^3/uL (0.0-1.1) Eosinophils # (Auto) 0.1 x10^3/uL (0.0-0.7) Basophils # (Auto) 0.0 x10^3/uL (0.0-0.2) Sodium Level 137 mmol/L (136-145) Potassium Level 3.8 mmol/L (3.5-5.1) Chloride Level 103 mmol/L (98-107) Carbon Dioxide Level 28 mmol/L (21-32) Anion Gap 6 (6-14) Blood Urea Nitrogen 17 mg/dL (7-20) Creatinine 0.6 mg/dL (0.6-1.0) Estimated GFR (Cockcroft-Gault) 106.3 BUN/Creatinine Ratio 28 (6-20) Glucose Level 134 mg/dL (70-99) Calcium Level 9.4 mg/dL (8.5-10.1) Total Bilirubin 0.4 mg/dL (0.2-1.0) Aspartate Amino Transf (AST/SGOT) 17 U/L (15-37) Alanine Aminotransferase (ALT/SGPT) 18 U/L (14-59) Alkaline Phosphatase 101 U/L (46-116) Total Protein 4.4 g/dL (6.4-8.2) Albumin 1.1 g/dL (3.4-5.0) Albumin/Globulin Ratio 0.3 (1.0-1.7) Test 10/08/19 05:55 10/08/19 13:03 10/08/19 23:59 10/09/19 05:15 Glucose (Fingerstick) 131 mg/dL (70-99) 170 mg/dL (70-99) 132 mg/dL (70-99) White Blood Count 10.3 x10^3/uL (4.0-11.0) Red Blood Count 3.10 x10^6/uL (3.50-5.40) Hemoglobin 9.0 g/dL (12.0-15.5) Hematocrit 26.3 % (36.0-47.0) Mean Corpuscular Volume 85 fL (79-100) Mean Corpuscular Hemoglobin 29 pg (25-35) Mean Corpuscular Hemoglobin Concent 34 g/dL (31-37) Red Cell Distribution Width 17.4 % (11.5-14.5) Platelet Count 448 x10^3/uL (140-400) Neutrophils (%) (Auto) 74 % (31-73) Lymphocytes (%) (Auto) 17 % (24-48) Monocytes (%) (Auto) 7 % (0-9) Eosinophils (%) (Auto) 1 % (0-3) Basophils (%) (Auto) 0 % (0-3) Neutrophils # (Auto) 7.7 x10^3/uL (1.8-7.7) Lymphocytes # (Auto) 1.8 x10^3/uL (1.0-4.8) Monocytes # (Auto) 0.8 x10^3/uL (0.0-1.1) Eosinophils # (Auto) 0.1 x10^3/uL (0.0-0.7) Basophils # (Auto) 0.0 x10^3/uL (0.0-0.2) Sodium Level 136 mmol/L (136-145) Potassium Level 4.0 mmol/L (3.5-5.1) Chloride Level 102 mmol/L (98-107) Carbon Dioxide Level 29 mmol/L (21-32) Anion Gap 5 (6-14) Blood Urea Nitrogen 15 mg/dL (7-20) Creatinine 0.6 mg/dL (0.6-1.0) Estimated GFR (Cockcroft-Gault) 106.3 BUN/Creatinine Ratio 25 (6-20) Glucose Level 133 mg/dL (70-99) Calcium Level 9.8 mg/dL (8.5-10.1) Total Bilirubin 0.4 mg/dL (0.2-1.0) Aspartate Amino Transf (AST/SGOT) 19 U/L (15-37) Alanine Aminotransferase (ALT/SGPT) 15 U/L (14-59) Alkaline Phosphatase 113 U/L (46-116) Total Protein 4.3 g/dL (6.4-8.2) Albumin 1.0 g/dL (3.4-5.0) Albumin/Globulin Ratio 0.3 (1.0-1.7) Laboratory Tests Test 10/08/19 13:03 10/08/19 23:59 10/09/19 05:15 Glucose (Fingerstick) 170 mg/dL (70-99) 132 mg/dL (70-99) White Blood Count 10.3 x10^3/uL (4.0-11.0) Red Blood Count 3.10 x10^6/uL (3.50-5.40) Hemoglobin 9.0 g/dL (12.0-15.5) Hematocrit 26.3 % (36.0-47.0) Mean Corpuscular Volume 85 fL (79-100) Mean Corpuscular Hemoglobin 29 pg (25-35) Mean Corpuscular Hemoglobin Concent 34 g/dL (31-37) Red Cell Distribution Width 17.4 % (11.5-14.5) Platelet Count 448 x10^3/uL (140-400) Neutrophils (%) (Auto) 74 % (31-73) Lymphocytes (%) (Auto) 17 % (24-48) Monocytes (%) (Auto) 7 % (0-9) Eosinophils (%) (Auto) 1 % (0-3) Basophils (%) (Auto) 0 % (0-3) Neutrophils # (Auto) 7.7 x10^3/uL (1.8-7.7) Lymphocytes # (Auto) 1.8 x10^3/uL (1.0-4.8) Monocytes # (Auto) 0.8 x10^3/uL (0.0-1.1) Eosinophils # (Auto) 0.1 x10^3/uL (0.0-0.7) Basophils # (Auto) 0.0 x10^3/uL (0.0-0.2) Sodium Level 136 mmol/L (136-145) Potassium Level 4.0 mmol/L (3.5-5.1) Chloride Level 102 mmol/L (98-107) Carbon Dioxide Level 29 mmol/L (21-32) Anion Gap 5 (6-14) Blood Urea Nitrogen 15 mg/dL (7-20) Creatinine 0.6 mg/dL (0.6-1.0) Estimated GFR (Cockcroft-Gault) 106.3 BUN/Creatinine Ratio 25 (6-20) Glucose Level 133 mg/dL (70-99) Calcium Level 9.8 mg/dL (8.5-10.1) Total Bilirubin 0.4 mg/dL (0.2-1.0) Aspartate Amino Transf (AST/SGOT) 19 U/L (15-37) Alanine Aminotransferase (ALT/SGPT) 15 U/L (14-59) Alkaline Phosphatase 113 U/L (46-116) Total Protein 4.3 g/dL (6.4-8.2) Albumin 1.0 g/dL (3.4-5.0) Albumin/Globulin Ratio 0.3 (1.0-1.7) Microbiology 10/06/19 Blood Culture - Preliminary, Resulted NO GROWTH AFTER 2 DAYS 10/03/19 Gram Stain - Final, Complete 10/03/19 Aerobic and Anaerobic Culture - Final, Complete 10/01/19 Gram Stain Evaluation - Final, Complete 10/01/19 Respiratory Culture - Final, Complete 10/01/19 Antimicrobic Susceptibility - Final, Complete 09/25/19 Urine Culture - Final, Complete 09/17/19 Gram Stain - Final, Complete 09/17/19 Aerobic Culture - Final, Complete Medications Current Medications Sodium Chloride 1,000 ml @ 1,000 mls/hr Q1H IV Last administered on 07/04/19at 03:00; Start 07/04/19 at 03:00; Stop 07/04/19 at 03:59; Status DC Ondansetron HCl (Zofran) 4 mg 1X ONCE IVP Last administered on 07/04/19at 03:27; Start 07/04/19 at 03:00; Stop 07/04/19 at 03:01; Status DC Morphine Sulfate (Morphine Sulfate) 4 mg 1X ONCE IV ; Start 07/04/19 at 03:00; Stop 07/04/19 at 03:01; Status Cancel Ketorolac Tromethamine (Toradol 30mg Vial) 30 mg 1X ONCE IV Last administered on 07/04/19at 02:54; Start 07/04/19 at 03:00; Stop 07/04/19 at 03:01; Status DC Fentanyl Citrate (Fentanyl 2ml Vial) 25 mcg 1X ONCE IVP Last administered on 07/04/19at 03:23; Start 07/04/19 at 03:30; Stop 07/04/19 at 03:31; Status DC Fentanyl Citrate (Fentanyl 2ml Vial) 100 mcg STK-MED ONCE .ROUTE ; Start 07/04/19 at 03:18; Stop 07/04/19 at 03:18; Status DC Iohexol (Omnipaque 350 Mg/ml) 90 ml 1X ONCE IV Last administered on 07/04/19at 03:25; Start 07/04/19 at 03:30; Stop 07/04/19 at 03:31; Status DC Info (CONTRAST GIVEN -- Rx MONITORING) 1 each PRN DAILY PRN MC SEE COMMENTS; Start 07/04/19 at 03:30; Stop 07/06/19 at 03:29; Status DC Hydromorphone HCl (Dilaudid) 0.5 mg 1X ONCE IV Last administered on 07/04/19at 03:55; Start 07/04/19 at 04:30; Stop 07/04/19 at 04:32; Status DC Ondansetron HCl (Zofran) 4 mg PRN Q8HRS PRN IV NAUSEA/VOMITING 1ST CHOICE; Start 07/04/19 at 05:00; Stop 07/04/19 at 09:27; Status DC Morphine Sulfate (Morphine Sulfate) 2 mg PRN Q2HR PRN IV SEVERE PAIN 7-10 Last administered on 07/05/19at 12:26; Start 07/04/19 at 05:00; Stop 07/05/19 at 14:15; Status DC Sodium Chloride 1,000 ml @ 125 mls/hr Q8H IV Last administered on 07/04/19at 20:56; Start 07/04/19 at 05:00; Stop 07/05/19 at 04:59; Status DC Hydromorphone HCl (Dilaudid) 0.5 mg PRN Q3HRS PRN IV SEVERE PAIN 7-10 Last administered on 07/05/19at 10:06; Start 07/04/19 at 05:00; Stop 07/05/19 at 12:01; Status DC Piperacillin Sod/ Tazobactam Sod 4.5 gm/Sodium Chloride 100 ml @ 200 mls/hr 1X ONCE IV Last administered on 07/04/19at 05:44; Start 07/04/19 at 06:00; Stop 07/04/19 at 06:29; Status DC Ondansetron HCl (Zofran) 4 mg PRN Q4HRS PRN IV NAUSEA/VOMITING 1ST CHOICE Last administered on 10/09/19at 08:51; Start 07/04/19 at 09:30 Insulin Human Lispro (HumaLOG) 0-9 UNITS Q6HRS SQ Last administered on 10/08/19at 13:09; Start 07/04/19 at 09:30 Dextrose (Dextrose 50%-Water Syringe) 12.5 gm PRN Q15MIN PRN IV SEE COMMENTS; Start 07/04/19 at 09:30 Pantoprazole Sodium (PROTONIX VIAL for IV PUSH) 40 mg DAILYAC IVP Last administered on 10/09/19at 08:49; Start 07/04/19 at 11:30 Prochlorperazine Edisylate (Compazine) 10 mg PRN Q6HRS PRN IV NAUSEA/VOMITING, 2nd CHOICE Last administered on 10/08/19at 23:50; Start 07/04/19 at 17:45 Atenolol (Tenormin) 100 mg DAILY PO ; Start 07/05/19 at 09:00; Stop 07/04/19 at 20:08; Status DC Metoprolol Tartrate (Lopressor Vial) 2.5 mg Q6HRS IVP Last administered on 07/05/19at 05:51; Start 07/04/19 at 20:15; Stop 07/05/19 at 10:02; Status DC Metoprolol Tartrate (Lopressor Vial) 5 mg Q6HRS IVP Last administered on 07/14/19at 00:12; Start 07/05/19 at 10:15; Stop 07/16/19 at 08:48; Status DC Hydromorphone HCl (Dilaudid) 1 mg PRN Q3HRS PRN IV SEVERE PAIN 7-10 Last administered on 07/11/19at 05:13; Start 07/05/19 at 12:00; Stop 07/19/19 at 00:25; Status DC Lidocaine HCl (Buffered Lidocaine 1%) 3 ml STK-MED ONCE .ROUTE ; Start 07/05/19 at 12:55; Stop 07/05/19 at 12:56; Status DC Albumin Human 500 ml @ 125 mls/hr 1X ONCE IV Last administered on 07/05/19at 14:33; Start 07/05/19 at 14:30; Stop 07/05/19 at 18:32; Status DC Norepinephrine Bitartrate 8 mg/ Dextrose 258 ml @ 17.299 mls/ hr CONT PRN IV PER PROTOCOL Last administered on 08/02/19at 12:48; Start 07/05/19 at 15:30; Stop 08/05/19 at 09:19; Status DC Sodium Chloride 1,000 ml @ 125 mls/hr Q8H IV Last administered on 07/05/19at 21:04; Start 07/05/19 at 16:00; Stop 07/06/19 at 02:42; Status DC Albumin Human 500 ml @ 125 mls/hr PRN BID PRN IV After every 2L NSS & BP < 90mm Last administered on 09/24/19at 11:40; Start 07/05/19 at 16:00 Iohexol (Omnipaque 300 Mg/ml) 60 ml 1X ONCE IV Last administered on 07/05/19at 17:20; Start 07/05/19 at 17:00; Stop 07/05/19 at 17:01; Status DC Info (CONTRAST GIVEN -- Rx MONITORING) 1 each PRN DAILY PRN MC SEE COMMENTS; Start 07/05/19 at 17:00; Stop 07/07/19 at 16:59; Status DC Meropenem 1 gm/ Sodium Chloride 100 ml @ 200 mls/hr Q8HRS IV Last administered on 07/06/19at 05:45; Start 07/05/19 at 20:00; Stop 07/06/19 at 08:48; Status DC Furosemide (Lasix) 40 mg 1X ONCE IVP Last administered on 07/05/19at 22:12; Start 07/05/19 at 22:30; Stop 07/05/19 at 22:31; Status DC Calcium Chloride 1000 mg/Sodium Chloride 110 ml @ 220 mls/hr 1X ONCE IV Last administered on 07/05/19at 22:11; Start 07/05/19 at 22:30; Stop 07/05/19 at 22:59; Status DC Albuterol Sulfate (Ventolin Neb Soln) 2.5 mg 1X ONCE NEB Last administered on 07/06/19at 00:56; Start 07/05/19 at 22:30; Stop 07/05/19 at 22:31; Status DC Insulin Human Regular (HumuLIN R VIAL) 5 unit 1X ONCE IV Last administered on 07/05/19at 22:14; Start 07/05/19 at 22:30; Stop 07/05/19 at 22:31; Status DC Magnesium Sulfate 50 ml @ 25 mls/hr 1X ONCE IV Last administered on 07/06/19at 02:57; Start 07/06/19 at 03:00; Stop 07/06/19 at 04:59; Status DC Calcium Gluconate 1000 mg/Sodium Chloride 110 ml @ 220 mls/hr 1X ONCE IV Last administered on 07/06/19at 02:46; Start 07/06/19 at 03:00; Stop 07/06/19 at 03:29; Status DC Sodium Chloride 1,000 ml @ 200 mls/hr Q5H IV Last administered on 07/06/19at 02:46; Start 07/06/19 at 03:00; Stop 07/06/19 at 10:21; Status DC Calcium Gluconate 1000 mg/Sodium Chloride 110 ml @ 220 mls/hr 1X ONCE IV Last administered on 07/06/19at 03:21; Start 07/06/19 at 03:30; Stop 07/06/19 at 03:59; Status DC Sodium Bicarbonate 50 meq/Sodium Chloride 1,050 ml @ 75 mls/hr Q14H IV Last administered on 07/10/19at 21:10; Start 07/06/19 at 07:30; Stop 07/11/19 at 10:28; Status DC Calcium Gluconate 2000 mg/Sodium Chloride 120 ml @ 220 mls/hr 1X ONCE IV Last administered on 07/06/19at 09:05; Start 07/06/19 at 07:30; Stop 07/06/19 at 08:02; Status DC Lidocaine HCl (Xylocaine-Mpf 1% 2ml Vial) 2 ml STK-MED ONCE .ROUTE ; Start 07/06/19 at 08:47; Stop 07/06/19 at 08:47; Status DC Meropenem 500 mg/ Sodium Chloride 50 ml @ 100 mls/hr Q12HR IV Last administered on 07/11/19at 21:01; Start 07/06/19 at 18:00; Stop 07/12/19 at 07:58; Status DC Lidocaine HCl (Buffered Lidocaine 1%) 3 ml STK-MED ONCE .ROUTE ; Start 07/06/19 at 09:46; Stop 07/06/19 at 09:46; Status DC Lidocaine HCl (Buffered Lidocaine 1%) 6 ml 1X ONCE INJ Last administered on 07/06/19at 10:26; Start 07/06/19 at 10:15; Stop 07/06/19 at 10:16; Status DC Info (Tpn Per Pharmacy) 1 each PRN DAILY PRN MC SEE COMMENTS Last administered on 10/08/19at 08:55; Start 07/06/19 at 12:00 Sodium Chloride 1,000 ml @ 1,000 mls/hr Q1H PRN IV hypotension; Start 07/06/19 at 12:07; Stop 07/06/19 at 18:06; Status DC Diphenhydramine HCl (Benadryl) 25 mg 1X PRN PRN IV ITCHING; Start 07/06/19 at 12:15; Stop 07/07/19 at 12:14; Status DC Diphenhydramine HCl (Benadryl) 25 mg 1X PRN PRN IV ITCHING; Start 07/06/19 at 12:15; Stop 07/07/19 at 12:14; Status DC Sodium Chloride 1,000 ml @ 400 mls/hr Q2H30M PRN IV PATENCY; Start 07/06/19 at 12:07; Stop 07/07/19 at 00:06; Status DC Info (PHARMACY MONITORING -- do not chart) 1 each PRN DAILY PRN MC SEE COMMENTS; Start 07/06/19 at 12:15; Stop 07/08/19 at 08:13; Status DC Sodium Chloride 90 meq/Calcium Gluconate 10 meq/ Multivitamins 10 ml/Chromium/ Copper/Manganese/ Seleni/Zn 1 ml/ Total Parenteral Nutrition/Amino Acids/Dextrose/ Fat Emulsion Intravenous 55.005 ml @ 2.292 mls/hr TPN CONT IV ; Start 07/06/19 at 22:00; Stop 07/06/19 at 12:33; Status DC Info (Tpn Per Pharmacy) 1 each PRN DAILY PRN MC SEE COMMENTS; Start 07/06/19 at 12:30; Status UNV Sodium Chloride 90 meq/Calcium Gluconate 10 meq/ Multivitamins 10 ml/Chromium/ Copper/Manganese/ Seleni/Zn 0.5 ml/ Total Parenteral Nutrition/Amino Acids/Dextrose/ Fat Emulsion Intravenous 1,512 ml @ 63 mls/hr TPN CONT IV Last administered on 07/06/19at 22:06; Start 07/06/19 at 22:00; Stop 07/07/19 at 21:59; Status DC Calcium Carbonate/ Glycine (Tums) 500 mg PRN AFTMEALHC PRN PO INDIGESTION; Start 07/06/19 at 17:45; Stop 08/31/19 at 10:25; Status DC Calcium Gluconate (Calcium Gluconate) 2,000 mg 1X ONCE IVP Last administered on 07/07/19at 02:19; Start 07/07/19 at 02:15; Stop 07/07/19 at 02:16; Status DC Calcium Chloride 3000 mg/Sodium Chloride 1,030 ml @ 50 mls/hr [id number] IV Last administered on 07/09/19at 02:17; Start 07/07/19 at 08:00; Stop 07/09/19 at 15:23; Status DC Lorazepam (Ativan Inj) 1 mg PRN Q4HRS PRN IVP ANXIETY / AGITATION, 2nd choic Last administered on 08/05/19at 03:51; Start 07/07/19 at 09:00; Stop 08/05/19 at 09:19; Status DC Sodium Chloride 1,000 ml @ 1,000 mls/hr Q1H PRN IV hypotension; Start 07/07/19 at 08:56; Stop 07/07/19 at 14:55; Status DC Albumin Human 200 ml @ 200 mls/hr 1X PRN PRN IV Hypotension; Start 07/07/19 at 09:00; Stop 07/07/19 at 14:59; Status DC Diphenhydramine HCl (Benadryl) 25 mg 1X PRN PRN IV ITCHING; Start 07/07/19 at 09:00; Stop 07/08/19 at 08:59; Status DC Diphenhydramine HCl (Benadryl) 25 mg 1X PRN PRN IV ITCHING; Start 07/07/19 at 09:00; Stop 07/08/19 at 08:59; Status DC Sodium Chloride 1,000 ml @ 400 mls/hr Q2H30M PRN IV PATENCY; Start 07/07/19 at 08:56; Stop 07/07/19 at 20:55; Status DC Info (PHARMACY MONITORING -- do not chart) 1 each PRN DAILY PRN MC SEE COMMENTS; Start 07/07/19 at 09:00; Status UNV Info (PHARMACY MONITORING -- do not chart) 1 each PRN DAILY PRN MC SEE COMMENTS; Start 07/07/19 at 09:00; Stop 07/08/19 at 08:13; Status DC Digoxin (Lanoxin) 500 mcg 1X ONCE IV Last administered on 07/07/19at 10:04; Start 07/07/19 at 10:00; Stop 07/07/19 at 10:01; Status DC Digoxin (Lanoxin) 125 mcg 1X ONCE IV Last administered on 07/07/19at 17:10; Start 07/07/19 at 18:00; Stop 07/07/19 at 18:01; Status DC Magnesium Sulfate 100 ml @ 25 mls/hr 1X ONCE IV Last administered on 07/07/19at 12:48; Start 07/07/19 at 13:00; Stop 07/07/19 at 16:59; Status DC Sodium Chloride 90 meq/Magnesium Sulfate 10 meq/ Calcium Gluconate 20 meq/ Mu ltivitamins 10 ml/Chromium/ Copper/Manganese/ Seleni/Zn 0.5 ml/ Total Parenteral Nutrition/Amino Acids/Dextrose/ Fat Emulsion Intravenous 1,512 ml @ 63 mls/hr TPN CONT IV Last administered on 07/07/19at 22:25; Start 07/07/19 at 22:00; Stop 07/08/19 at 21:59; Status DC Sodium Chloride 1,000 ml @ 1,000 mls/hr Q1H PRN IV hypotension; Start 07/08/19 at 08:05; Stop 07/08/19 at 14:04; Status DC Albumin Human 200 ml @ 200 mls/hr 1X ONCE IV Last administered on 07/08/19at 08:57; Start 07/08/19 at 08:15; Stop 07/08/19 at 09:14; Status DC Diphenhydramine HCl (Benadryl) 25 mg 1X PRN PRN IV ITCHING; Start 07/08/19 at 08:15; Stop 07/09/19 at 08:14; Status DC Diphenhydramine HCl (Benadryl) 25 mg 1X PRN PRN IV ITCHING; Start 07/08/19 at 08:15; Stop 07/09/19 at 08:14; Status DC Sodium Chloride 1,000 ml @ 400 mls/hr Q2H30M PRN IV PATENCY; Start 07/08/19 at 08:05; Stop 07/08/19 at 20:04; Status DC Info (PHARMACY MONITORING -- do not chart) 1 each PRN DAILY PRN MC SEE COMMENTS; Start 07/08/19 at 08:15; Stop 07/12/19 at 07:57; Status DC Sodium Chloride 90 meq/Potassium Chloride 15 meq/ Potassium Phosphate 10 mmol/ Magnesium Sulfate 10 meq/Calcium Gluconate 20 meq/ Multivitamins 10 ml/Chromium/ Copper/Manganese/ Seleni/Zn 0.5 ml/ Total Parenteral Nutrition/Amino Ac ids/Dextrose/ Fat Emulsion Intravenous 1,512 ml @ 63 mls/hr TPN CONT IV Last administered on 07/08/19at 21:01; Start 07/08/19 at 22:00; Stop 07/09/19 at 21:59; Status DC Potassium Chloride/Water 100 ml @ 100 mls/hr 1X ONCE IV Last administered on 07/08/19at 14:09; Start 07/08/19 at 14:00; Stop 07/08/19 at 14:59; Status DC Benzocaine (Hurricaine One) 1 spray 1X ONCE MM Last administered on 07/08/19at 16:38; Start 07/08/19 at 14:30; Stop 07/08/19 at 14:31; Status DC Lidocaine HCl (Glydo (Lidocaine) Jelly) 1 ramu 1X ONCE MM Last administered on 07/08/19at 16:38; Start 07/08/19 at 14:30; Stop 07/08/19 at 14:31; Status DC Linezolid/Dextrose 300 ml @ 300 mls/hr Q12HR IV Last administered on 07/14/19at 21:04; Start 07/08/19 at 20:00; Stop 07/15/19 at 07:50; Status DC Acetaminophen (Tylenol) 650 mg PRN Q6HRS PRN PO MILD PAIN / TEMP; Start 07/09/19 at 03:30; Stop 07/09/19 at 03:36; Status DC Acetaminophen (Tylenol) 650 mg PRN Q6HRS PRN PEG MILD PAIN / TEMP Last administered on 08/04/19at 19:56; Start 07/09/19 at 03:36; Stop 08/31/19 at 10:25; Status DC Sodium Chloride 1,000 ml @ 1,000 mls/hr Q1H PRN IV hypotension; Start 07/09/19 at 07:50; Stop 07/09/19 at 13:49; Status DC Albumin Human 200 ml @ 200 mls/hr 1X PRN PRN IV Hypotension; Start 07/09/19 at 08:00; Stop 07/09/19 at 13:59; Status DC Sodium Chloride (Normal Saline Flush) 10 ml 1X PRN PRN IV AP catheter pack; Start 07/09/19 at 08:00; Stop 07/10/19 at 07:59; Status DC Sodium Chloride (Normal Saline Flush) 10 ml 1X PRN PRN IV CLASSIFIER TENDER catheter pack; Start 07/09/19 at 08:00; Stop 07/10/19 at 07:59; Status DC Sodium Chloride 1,000 ml @ 400 mls/hr Q2H30M PRN IV PATENCY; Start 07/09/19 at 07:50; Stop 07/09/19 at 19:49; Status DC Info (PHARMACY MONITORING -- do not chart) 1 each PRN DAILY PRN MC SEE CO MMENTS; Start 07/09/19 at 08:00; Status UNV Info (PHARMACY MONITORING -- do not chart) 1 each PRN DAILY PRN MC SEE COMMENTS; Start 07/09/19 at 08:00; Stop 07/11/19 at 08:25; Status DC Sodium Chloride 90 meq/Potassium Chloride 15 meq/ Potassium Phosphate 10 mmol/ Magnesium Sulfate 10 meq/Calcium Gluconate 20 meq/ Multivitamins 10 ml/Chromium/ Copper/Manganese/ Seleni/Zn 0.5 ml/ Total Parenteral Nutrition/Amino Acids/Dextrose/ Fat Emulsion Intravenous 1,512 ml @ 63 mls/hr TPN CONT IV Last administered on 07/09/19at 20:57; Start 07/09/19 at 22:00; Stop 07/10/19 at 21:59; Status DC Sodium Chloride 90 meq/Potassium Chloride 15 meq/ Potassium Phosphate 15 mmol/ Magnesium Sulfate 10 meq/Calcium Gluconate 20 meq/ Multivitamins 10 ml/Chromium/ Copper/Manganese/ Seleni/Zn 0.5 ml/ Total Parenteral Nutrition/Amino Acids/Dextrose/ Fat Emulsion Intravenous 1,512 ml @ 63 mls/hr TPN CONT IV ; Start 07/10/19 at 22:00; Stop 07/10/19 at 14:16; Status DC Sodium Chloride 90 meq/Potassium Chloride 15 meq/ Potassium Phosphate 15 mmol/ Magnesium Sulfate 10 meq/Calcium Gluconate 20 meq/ Multivitamins 10 ml/Chromium/ Copper/Manganese/ Seleni/Zn 0.5 ml/ Total Parenteral Nutrition/Amino Acids/Dextrose/ Fat Emulsion Intravenous 1,200 ml @ 50 mls/hr TPN CONT IV ; Start 07/10/19 at 22:00; Stop 07/10/19 at 14:17; Status DC Sodium Chloride 90 meq/Potassium Chloride 15 meq/ Potassium Phosphate 10 mmol/ Magnesium Sulfate 10 meq/Calcium Gluconate 20 meq/ Multivitamins 10 ml/Chromium/ Copper/Manganese/ Seleni/Zn 0.5 ml/ Total Parenteral Nutrition/Amino Acids/Dextrose/ Fat Emulsion Intravenous 1,200 ml @ 50 mls/hr TPN CONT IV Last administered on 07/10/19at 23:29; Start 07/10/19 at 22:00; Stop 07/11/19 at 21:59; Status DC Sodium Chloride 1,000 ml @ 1,000 mls/hr Q1H PRN IV hypotension; Start 07/11/19 at 07:28; Stop 07/11/19 at 13:27; Status DC Albumin Human 200 ml @ 200 mls/hr 1X ONCE IV Last administered on 07/11/19at 08:51; Start 07/11/19 at 07:30; Stop 07/11/19 at 08:29; Status DC Diphenhydramine HCl (Benadryl) 25 mg 1X PRN PRN IV ITCHING; Start 07/11/19 at 07:30; Stop 07/12/19 at 07:29; Status DC Diphenhydramine HCl (Benadryl) 25 mg 1X PRN PRN IV ITCHING; Start 07/11/19 at 07:30; Stop 07/12/19 at 07:29; Status DC Sodium Chloride 1,000 ml @ 400 mls/hr Q2H30M PRN IV PATENCY; Start 07/11/19 at 07:28; Stop 07/11/19 at 19:27; Status DC Info (PHARMACY MONITORING -- do not chart) 1 each PRN DAILY PRN MC SEE COMMENTS; Start 07/11/19 at 07:30; Stop 07/22/19 at 13:01; Status DC Metronidazole 100 ml @ 100 mls/hr Q6HRS IV Last administered on 07/27/19at 06:26; Start 07/11/19 at 08:30; Stop 07/27/19 at 09:58; Status DC Micafungin Sodium 100 mg/Dextrose 100 ml @ 100 mls/hr Q24H IV Last administered on 08/18/19at 08:18; Start 07/11/19 at 09:00; Stop 08/18/19 at 20:58; Status DC Propofol 0 ml @ As Directed STK-MED ONCE IV ; Start 07/11/19 at 07:53; Stop 07/11/19 at 07:53; Status DC Etomidate (Amidate) 20 mg STK-MED ONCE IV ; Start 07/11/19 at 07:53; Stop 07/11/19 at 07:54; Status DC Midazolam HCl (Versed) 5 mg STK-MED ONCE .ROUTE ; Start 07/11/19 at 07:57; Stop 07/11/19 at 07:57; Status DC Fentanyl Citrate 30 ml @ 0 mls/hr CONT PRN IV SEE PROTOCOL Last administered on 08/05/19at 06:12; Start 07/11/19 at 08:15; Stop 08/05/19 at 09:19; Status DC Artificial Tears (Artificial Tears) 1 drop PRN Q1HR PRN OU DRY EYE, 1st choice; Start 07/11/19 at 08:15; Stop 08/17/19 at 05:31; Status DC Midazolam HCl 50 mg/Sodium Chloride 50 ml @ 0 mls/hr CONT PRN IV SEE PROTOCOL Last administered on 07/14/19at 22:39; Start 07/11/19 at 08:15; Stop 07/16/19 at 15:59; Status DC Etomidate (Amidate) 8 mg 1X ONCE IV Last administered on 07/11/19at 08:33; Start 07/11/19 at 08:30; Stop 07/11/19 at 08:31; Status DC Succinylcholine Chloride (Anectine) 120 mg 1X ONCE IV Last administered on 07/11/19at 08:34; Start 07/11/19 at 08:30; Stop 07/11/19 at 08:31; Status DC Midazolam HCl (Versed) 5 mg 1X ONCE IV ; Start 07/11/19 at 08:30; Stop 07/11/19 at 08:31; Status DC Potassium Chloride 15 meq/ Bicarbonate Dialysis Soln w/ out KCl 5,007.5 ml @ 1,000 mls/ hr Q5H1M IV Last administered on 07/12/19at 11:11; Start 07/11/19 at 12:00; Stop 07/12/19 at 11:15; Status DC Potassium Chloride 15 meq/ Bicarbonate Dialysis Soln w/ out KCl 5,007.5 ml @ 1,000 mls/ hr Q5H1M IV Last administered on 07/12/19at 11:12; Start 07/11/19 at 12:00; Stop 07/12/19 at 11:17; Status DC Potassium Chloride 15 meq/ Bicarbonate Dialysis Soln w/ out KCl 5,007.5 ml @ 1,000 mls/ hr Q5H1M IV Last administered on 07/12/19at 11:11; Start 07/11/19 at 12:00; Stop 07/12/19 at 11:19; Status DC Sodium Chloride 90 meq/Potassium Chloride 15 meq/ Potassium Phosphate 10 mmol/ Magnesium Sulfate 10 meq/Calcium Gluconate 20 meq/ Multivitamins 10 ml/Chromium/ Copper/Manganese/ Seleni/Zn 0.5 ml/ Total Parenteral Nutrition/Amino Acids/Dextrose/ Fat Emulsion Intravenous 1,400 ml @ 58.333 mls/ hr TPN CONT IV Last administered on 07/11/19at 21:42; Start 07/11/19 at 22:00; Stop 07/12/19 at 21:59; Status DC Heparin Sodium (Porcine) (Heparin Sodium) 5,000 unit Q8HRS SQ Last administered on 07/16/19at 05:55; Start 07/11/19 at 15:00; Stop 07/16/19 at 13:28; Status DC Meropenem 500 mg/ Sodium Chloride 50 ml @ 100 mls/hr Q6HRS IV Last administered on 07/13/19at 06:00; Start 07/12/19 at 09:00; Stop 07/13/19 at 07:29; Status DC Potassium Phosphate 20 mmol/ Sodium Chloride 106.6667 ml @ 51.667 m... 1X ONCE IV Last administered on 07/12/19at 11:22; Start 07/12/19 at 10:15; Stop 07/12/19 at 12:18; Status DC Acetaminophen (Tylenol Supp) 650 mg PRN Q6HRS PRN HI MILD PAIN / TEMP > 100.3'F Last administered on 10/06/19at 10:16; Start 07/12/19 at 10:30 Potassium Chloride/Water 100 ml @ 100 mls/hr Q1H IV Last administered on 07/12/19at 12:12; Start 07/12/19 at 11:00; Stop 07/12/19 at 12:59; Status DC Potassium Chloride 20 meq/ Bicarbonate Dialysis Soln w/ out KCl 5,010 ml @ 1,000 mls/hr Q5H1M IV Last administered on 07/13/19at 08:48; Start 07/12/19 at 12:00; Stop 07/13/19 at 13:03; Status DC Potassium Chloride 20 meq/ Bicarbonate Dialysis Soln w/ out KCl 5,010 ml @ 1,000 mls/hr Q5H1M IV Last administered on 07/17/19at 14:52; Start 07/12/19 at 11:30; Stop 07/17/19 at 19:59; Status DC Potassium Chloride 20 meq/ Bicarbonate Dialysis Soln w/ out KCl 5,010 ml @ 1,000 mls/hr Q5H1M IV Last administered on 07/17/19at 14:53; Start 07/12/19 at 11:30; Stop 07/17/19 at 19:59; Status DC Sodium Chloride 90 meq/Potassium Chloride 15 meq/ Potassium Phosphate 15 mmol/ Magnesium Sulfate 10 meq/Calcium Gluconate 15 meq/ Multivitamins 10 ml/Chromium/ Copper/Manganese/ Seleni/Zn 0.5 ml/ Total Parenteral Nutrition/Amino Acids/Dextrose/ Fat Emulsion Intravenous 1,400 ml @ 58.333 mls/ hr TPN CONT IV Last administered on 07/12/19at 22:17; Start 07/12/19 at 22:00; Stop 07/13/19 at 21:59; Status DC Cefepime HCl (Maxipime) 2 gm Q12HR IVP Last administered on 07/26/19at 20:56; Start 07/13/19 at 09:00; Stop 07/27/19 at 09:58; Status DC Daptomycin 500 mg/ Sodium Chloride 50 ml @ 100 mls/hr Q48H IV Last administered on 07/29/19at 09:57; Start 07/13/19 at 08:30; Stop 07/29/19 at 10:07; Status DC Lidocaine HCl (Buffered Lidocaine 1%) 3 ml 1X ONCE INJ Last administered on 07/13/19at 10:27; Start 07/13/19 at 10:30; Stop 07/13/19 at 10:31; Status DC Potassium Phosphate 20 mmol/ Sodium Chloride 106.6667 ml @ 51.667 m... 1X ONCE IV Last administered on 07/13/19at 12:51; Start 07/13/19 at 13:00; Stop 07/13/19 at 15:03; Status DC Sodium Chloride 90 meq/Potassium Chloride 15 meq/ Potassium Phosphate 18 mmol/ Magnesium Sulfate 8 meq/Calcium Gluconate 15 meq/ Multivitamins 10 ml/Chromium/ Copper/Manganese/ Seleni/Zn 0.5 ml/ Total Parenteral Nutrition/Amino Acids/Dext amarilis/ Fat Emulsion Intravenous 1,400 ml @ 58.333 mls/ hr TPN CONT IV Last administered on 07/13/19at 22:16; Start 07/13/19 at 22:00; Stop 07/14/19 at 21:59; Status DC Potassium Chloride 20 meq/ Bicarbonate Dialysis Soln w/ out KCl 5,010 ml @ 1,000 mls/hr Q5H1M IV Last administered on 07/17/19at 14:54; Start 07/13/19 at 16:00; Stop 07/17/19 at 19:59; Status DC Multi-Ingred Cream/Lotion/Oil/ Oint (Artificial Tears Eye Ointment) 1 ramu PRN Q1HR PRN OU DRY EYE, 2nd choice Last administered on 08/01/19at 08:19; Start 07/13/19 at 17:30; Stop 09/21/19 at 14:39; Status DC Sodium Chloride 90 meq/Potassium Chloride 15 meq/ Potassium Phosphate 18 mmol/ Magnesium Sulfate 8 meq/Calcium Gluconate 15 meq/ Multivitamins 10 ml/Chromium/ Copper/Manganese/ Seleni/Zn 0.5 ml/ Total Parenteral Nutrition/Amino Acids/Dextrose/ Fat Emulsion Intravenous 1,400 ml @ 58.333 mls/ hr TPN CONT IV Last administered on 07/14/19at 22:00; Start 07/14/19 at 22:00; Stop 07/15/19 at 21:59; Status DC Albumin Human 500 ml @ 125 mls/hr 1X ONCE IV ; Start 07/14/19 at 14:15; Stop 07/14/19 at 18:14; Status DC Sodium Chloride 90 meq/Potassium Chloride 15 meq/ Potassium Phosphate 18 mmol/ Magnesium Sulfate 8 meq/Calcium Gluconate 15 meq/ Multivitamins 10 ml/Chromium/ Copper/Manganese/ Seleni/Zn 0.5 ml/ Insulin Human Regular 10 unit/ Total Parenteral Nutrition/Amino Acids/Dextrose/ Fat Emulsion Intravenous 1,400 ml @ 58.333 mls/ hr TPN CONT IV Last administered on 07/15/19at 21:43; Start 07/15/19 at 22:00; Stop 07/16/19 at 21:59; Status DC Lidocaine HCl (Buffered Lidocaine 1%) 3 ml STK-MED ONCE .ROUTE ; Start 07/13/19 at 10:00; Stop 07/15/19 at 13:57; Status DC Midazolam HCl 100 mg/Sodium Chloride 100 ml @ 7 mls/hr CONT PRN IV SEE PROTOCOL Last administered on 07/27/19at 15:35; Start 07/16/19 at 16:00; Stop 09/21/19 at 14:38; Status DC Sodium Chloride 90 meq/Potassium Chloride 15 meq/ Potassium Phosphate 18 mmol/ Magnesium Sulfate 8 meq/Calcium Gluconate 15 meq/ Multivitamins 10 ml/Chromium/ Copper/Manganese/ Seleni/Zn 0.5 ml/ Insulin Human Regular 15 unit/ Total Parenteral Nutrition/Amino Acids/Dextrose/ Fat Emulsion Intravenous 1,400 ml @ 58.333 mls/ hr TPN CONT IV Last administered on 07/16/19at 20:34; Start 07/16/19 at 22:00; Stop 07/17/19 at 21:59; Status DC Info (Icu Electrolyte Protocol) 1 ea CONT PRN PRN MC PER PROTOCOL; Start 07/17/19 at 13:15 Sodium Chloride 90 meq/Potassium Chloride 15 meq/ Potassium Phosphate 18 mmol/ Magnesium Sulfate 8 meq/Calcium Gluconate 15 meq/ Multivitamins 10 ml/Chromium/ Copper/Manganese/ Seleni/Zn 0.5 ml/ Insulin Human Regular 15 unit/ Total Parenteral Nutrition/Amino Acids/Dextrose/ Fat Emulsion Intravenous 1,400 ml @ 58.333 mls/ hr TPN CONT IV Last administered on 07/17/19at 22:05; Start 07/17/19 at 22:00; Stop 07/18/19 at 21:59; Status DC Potassium Chloride 15 meq/ Bicarbonate Dialysis Soln w/ out KCl 5,007.5 ml @ 1,000 mls/ hr Q5H1M IV Last administered on 07/20/19at 18:14; Start 07/17/19 at 20:00; Stop 07/21/19 at 13:08; Status DC Potassium Chloride 15 meq/ Bicarbonate Dialysis Soln w/ out KCl 5,007.5 ml @ 1,000 mls/ hr Q5H1M IV Last administered on 07/20/19at 18:14; Start 07/17/19 at 20:00; Stop 07/21/19 at 13:08; Status DC Potassium Chloride 15 meq/ Bicarbonate Dialysis Soln w/ out KCl 5,007.5 ml @ 1,000 mls/ hr Q5H1M IV Last administered on 07/20/19at 18:14; Start 07/17/19 at 20:00; Stop 07/21/19 at 13:08; Status DC Iohexol (Omnipaque 240 Mg/ml) 30 ml 1X ONCE PO Last administered on 07/18/19at 11:30; Start 07/18/19 at 11:30; Stop 07/18/19 at 11:33; Status DC Info (CONTRAST GIVEN -- Rx MONITORING) 1 each PRN DAILY PRN MC SEE COMMENTS; Start 07/18/19 at 11:45; Stop 07/20/19 at 11:44; Status DC Sodium Chloride 90 meq/Potassium Chloride 15 meq/ Potassium Phosphate 18 mmol/ Magnesium Sulfate 8 meq/Calcium Gluconate 15 meq/ Multivitamins 10 ml/Chromium/ Copper/Manganese/ Seleni/Zn 0.5 ml/ Insulin Human Regular 15 unit/ Total Parenteral Nutrition/Amino Acids/Dextrose/ Fat Emulsion Intravenous 1,400 ml @ 58.333 mls/ hr TPN CONT IV Last administered on 07/18/19at 21:47; Start 07/18/19 at 22:00; Stop 07/19/19 at 21:59; Status DC Sodium Chloride 90 meq/Potassium Chloride 15 meq/ Potassium Phosphate 18 mmol/ Magnesium Sulfate 8 meq/Calcium Gluconate 15 meq/ Multivitamins 10 ml/Chromium/ Copper/Manganese/ Seleni/Zn 0.5 ml/ Insulin Human Regular 20 unit/ Total Parenteral Nutrition/Amino Acids/Dextrose/ Fat Emulsion Intravenous 1,400 ml @ 58.333 mls/ hr TPN CONT IV Last administered on 07/19/19at 21:36; Start 07/19/19 at 22:00; Stop 07/20/19 at 21:59; Status DC Alteplase, Recombinant (Cathflo For Central Catheter Clearance) 1 mg 1X ONCE INT CAT Last administered on 07/19/19at 20:03; Start 07/19/19 at 19:30; Stop 07/19/19 at 19:46; Status DC Alteplase, Recombinant (Cathflo For Central Catheter Clearance) 1 mg 1X ONCE INT CAT Last administered on 07/19/19at 22:05; Start 07/19/19 at 22:00; Stop 07/19/19 at 22:01; Status DC Sodium Chloride 90 meq/Potassium Chloride 15 meq/ Potassium Phosphate 18 mmol/ Magnesium Sulfate 8 meq/Calcium Gluconate 15 meq/ Multivitamins 10 ml/Chromium/ Copper/Manganese/ Seleni/Zn 0.5 ml/ Insulin Human Regular 20 unit/ Total Parenteral Nutrition/Amino Acids/Dextrose/ Fat Emulsion Intravenous 1,400 ml @ 58.333 mls/ hr TPN CONT IV Last administered on 07/20/19at 21:30; Start 07/20/19 at 22:00; Stop 07/21/19 at 21:59; Status DC Dexmedetomidine HCl 400 mcg/ Sodium Chloride 100 ml @ 0 mls/hr CONT PRN IV ANXIETY / AGITATION Last administered on 09/17/19at 12:57; Start 07/21/19 at 08:15; Stop 09/17/19 at 18:31; Status DC Sodium Chloride 500 ml @ 500 mls/hr 1X PRN PRN IV ELEVATED BP, SEE COMMENTS; Start 07/21/19 at 08:15 Atropine Sulfate (ATROPINE 0.5mg SYRINGE) 0.5 mg PRN Q5MIN PRN IV SEE COMMENTS; Start 07/21/19 at 08:15 Furosemide (Lasix) 20 mg 1X ONCE IVP Last administered on 07/21/19at 08:19; Start 07/21/19 at 08:15; Stop 07/21/19 at 08:16; Status DC Lidocaine HCl (Buffered Lidocaine 1%) 3 ml STK-MED ONCE .ROUTE ; Start 07/21/19 at 08:39; Stop 07/21/19 at 08:39; Status DC Lidocaine HCl (Buffered Lidocaine 1%) 6 ml 1X ONCE INJ Last administered on 07/21/19at 09:05; Start 07/21/19 at 09:00; Stop 07/21/19 at 09:06; Status DC Sodium Chloride 90 meq/Potassium Chloride 15 meq/ Potassium Phosphate 18 mmol/ Magnesium Sulfate 8 meq/Calcium Gluconate 15 meq/ Multivitamins 10 ml/Chromium/ Copper/Manganese/ Seleni/Zn 0.5 ml/ Insulin Human Regular 20 unit/ Total Parenteral Nutrition/Amino Acids/Dextrose/ Fat Emulsion Intravenous 1,400 ml @ 58.333 mls/ hr TPN CONT IV Last administered on 07/21/19at 22:45; Start 07/21/19 at 22:00; Stop 07/22/19 at 21:59; Status DC Sodium Chloride 1,000 ml @ 1,000 mls/hr Q1H PRN IV hypotension; Start 07/22/19 at 07:30; Stop 07/22/19 at 13:29; Status DC Albumin Human 200 ml @ 200 mls/hr 1X PRN PRN IV Hypotension Last administered on 07/22/19at 09:36; Start 07/22/19 at 07:30; Stop 07/22/19 at 13:29; Status DC Sodium Chloride (Normal Saline Flush) 10 ml 1X PRN PRN IV AP catheter pack; Start 07/22/19 at 07:30; Stop 07/22/19 at 21:29; Status DC Sodium Chloride (Normal Saline Flush) 10 ml 1X PRN PRN IV CLASSIFIER TENDER catheter pack; Start 07/22/19 at 07:30; Stop 07/23/19 at 07:29; Status DC Sodium Chloride 1,000 ml @ 400 mls/hr Q2H30M PRN IV PATENCY; Start 07/22/19 at 07:30; Stop 07/22/19 at 19:29; Status DC Info (PHARMACY MONITORING -- do not chart) 1 each PRN DAILY PRN MC SEE COMMENTS; Start 07/22/19 at 07:30; Stop 07/22/19 at 13:02; Status DC Info (PHARMACY MONITORING -- do not chart) 1 each PRN DAILY PRN MC SEE COMMENTS; Start 07/22/19 at 07:30; Stop 07/24/19 at 12:45; Status DC Sodium Chloride 90 meq/Potassium Chloride 15 meq/ Potassium Phosphate 10 mmol/ Magnesium Sulfate 8 meq/Calcium Gluconate 15 meq/ Multivitamins 10 ml/Chromium/ Copper/Manganese/ Seleni/Zn 0.5 ml/ Insulin Human Regular 25 unit/ Total Parenteral Nutrition/Amino Acids/Dextrose/ Fat Emulsion Intravenous 1,400 ml @ 58.333 mls/ hr TPN CONT IV Last administered on 07/22/19at 22:19; Start 07/22/19 at 22:00; Stop 07/23/19 at 21:59; Status DC Heparin Sodium (Porcine) (Heparin Sodium) 5,000 unit Q12HR SQ Last administered on 08/14/19at 08:59; Start 07/22/19 at 21:00; Stop 08/14/19 at 10:05; Status DC Ondansetron HCl (Zofran) 4 mg PRN Q6HRS PRN IV NAUSEA/VOMITING; Start 07/25/19 at 07:00; Stop 07/26/19 at 06:59; Status DC Fentanyl Citrate (Fentanyl 2ml Vial) 25 mcg PRN Q5MIN PRN IV MILD PAIN 1-3; Start 07/25/19 at 07:00; Stop 07/26/19 at 06:59; Status DC Fentanyl Citrate (Fentanyl 2ml Vial) 50 mcg PRN Q5MIN PRN IV MODERATE TO SEVERE PAIN; Start 07/25/19 at 07:00; Stop 07/26/19 at 06:59; Status DC Ringer's Solution 1,000 ml @ 30 mls/hr Q24H IV ; Start 07/25/19 at 07:00; Stop 07/25/19 at 18:59; Status DC Lidocaine HCl (Xylocaine-Mpf 1% 2ml Vial) 2 ml PRN 1X PRN ID PRIOR TO IV START; Start 07/25/19 at 07:00; Stop 07/26/19 at 06:59; Status DC Prochlorperazine Edisylate (Compazine) 5 mg PACU PRN PRN IV NAUSEA, MRX1; Start 07/25/19 at 07:00; Stop 07/26/19 at 06:59; Status DC Sodium Chloride 1,000 ml @ 1,000 mls/hr Q1H PRN IV hypotension; Start 07/23/19 at 09:10; Stop 07/23/19 at 15:09; Status DC Albumin Human 200 ml @ 200 mls/hr 1X PRN PRN IV Hypotension Last administered on 07/23/19at 10:10; Start 07/23/19 at 09:15; Stop 07/23/19 at 15:14; Status DC Sodium Chloride 1,000 ml @ 400 mls/hr Q2H30M PRN IV PATENCY; Start 07/23/19 at 09:10; Stop 07/23/19 at 21:09; Status DC Info (PHARMACY MONITORING -- do not chart) 1 each PRN DAILY PRN MC SEE COMMENTS; Start 07/23/19 at 09:15; Stop 07/24/19 at 12:45; Status DC Info (PHARMACY MONITORING -- do not chart) 1 each PRN DAILY PRN MC SEE COMMENTS; Start 07/23/19 at 09:15; Stop 07/24/19 at 12:45; Status DC Sodium Chloride 90 meq/Potassium Chloride 15 meq/ Potassium Phosphate 10 mmol/ Magnesium Sulfate 8 meq/Calcium Gluconate 15 meq/ Multivitamins 10 ml/Chromium/ Copper/Manganese/ Seleni/Zn 0.5 ml/ Insulin Human Regular 25 unit/ Total Janett ral Nutrition/Amino Acids/Dextrose/ Fat Emulsion Intravenous 1,400 ml @ 58.333 mls/ hr TPN CONT IV Last administered on 07/23/19at 22:10; Start 07/23/19 at 22:00; Stop 07/24/19 at 21:59; Status DC Magnesium Sulfate 50 ml @ 25 mls/hr PRN DAILY PRN IV for Mag < 1.7 on am labs Last administered on 10/06/19at 10:57; Start 07/24/19 at 09:15 Sodium Chloride 90 meq/Potassium Chloride 15 meq/ Potassium Phosphate 10 mmol/ Magnesium Sulfate 8 meq/Calcium Gluconate 15 meq/ Multivitamins 10 ml/Chromium/ Copper/Manganese/ Seleni/Zn 0.5 ml/ Insulin Human Regular 25 unit/ Total Parenteral Nutrition/Amino Acids/Dextrose/ Fat Emulsion Intravenous 1,400 ml @ 58.333 mls/ hr TPN CONT IV Last administered on 07/24/19at 21:20; Start 07/24/19 at 22:00; Stop 07/25/19 at 21:59; Status DC Sodium Chloride 1,000 ml @ 1,000 mls/hr Q1H PRN IV hypotension; Start 07/24/19 at 12:23; Stop 07/24/19 at 18:22; Status DC Albumin Human 200 ml @ 200 mls/hr 1X ONCE IV Last administered on 07/24/19at 13:34; Start 07/24/19 at 12:30; Stop 07/24/19 at 13:29; Status DC Diphenhydramine HCl (Benadryl) 25 mg 1X PRN PRN IV ITCHING; Start 07/24/19 at 12:30; Stop 07/25/19 at 12:29; Status DC Diphenhydramine HCl (Benadryl) 25 mg 1X PRN PRN IV ITCHING; Start 07/24/19 at 12:30; Stop 07/25/19 at 12:29; Status DC Info (PHARMACY MONITORING -- do not chart) 1 each PRN DAILY PRN MC SEE COMMENTS; Start 07/24/19 at 12:30; Status Cancel Bupivacaine HCl/ Epinephrine Bitart (Sensorcain-Epi 0.5%-1:[id number] Mpf) 30 ml STK-MED ONCE .ROUTE Last administered on 07/25/19at 11:44; Start 07/25/19 at 11:00; Stop 07/25/19 at 11:01; Status DC Cellulose (Surgicel Fibrillar 1x2) 1 each STK-MED ONCE .ROUTE ; Start 07/25/19 at 11:00; Stop 07/25/19 at 11:01; Status DC Sodium Chloride 90 meq/Potassium Chloride 15 meq/ Potassium Phosphate 10 mmol/ Magnesium Sulfate 12 meq/Calcium Gluconate 15 meq/ Multivitamins 10 ml/Chromium/ Copper/Manganese/ Seleni/Zn 0.5 ml/ Insulin Human Regular 25 unit/ Total Parenteral Nutrition/Amino Acids/Dextrose/ Fat Emulsion Intravenous 1,400 ml @ 58.333 mls/ hr TPN CONT IV Last administered on 07/25/19at 22:24; Start 07/25/19 at 22:00; Stop 07/26/19 at 21:59; Status DC Propofol 20 ml @ As Directed STK-MED ONCE IV ; Start 07/25/19 at 11:07; Stop 07/25/19 at 11:07; Status DC Cellulose (Surgicel Hemostat 4x8) 1 each STK-MED ONCE .ROUTE Last administered on 07/25/19at 11:44; Start 07/25/19 at 11:55; Stop 07/25/19 at 11:56; Status DC Sevoflurane (Ultane) 60 ml STK-MED ONCE IH ; Start 07/25/19 at 12:46; Stop 07/25/19 at 12:46; Status DC Sodium Chloride 1,000 ml @ 1,000 mls/hr Q1H PRN IV hypotension; Start 07/25/19 at 13:51; Stop 07/25/19 at 19:50; Status DC Albumin Human 200 ml @ 200 mls/hr 1X PRN PRN IV Hypotension Last administered on 07/25/19at 14:51; Start 07/25/19 at 14:00; Stop 07/25/19 at 19:59; Status DC Diphenhydramine HCl (Benadryl) 25 mg 1X PRN PRN IV ITCHING; Start 07/25/19 at 14:00; Stop 07/26/19 at 13:59; Status DC Diphenhydramine HCl (Benadryl) 25 mg 1X PRN PRN IV ITCHING; Start 07/25/19 at 14:00; Stop 07/26/19 at 13:59; Status DC Sodium Chloride 1,000 ml @ 400 mls/hr Q2H30M PRN IV PATENCY; Start 07/25/19 at 13:51; Stop 07/26/19 at 01:50; Status DC Info (PHARMACY MONITORING -- do not chart) 1 each PRN DAILY PRN MC SEE COMMENTS; Start 07/25/19 at 14:00; Stop 07/28/19 at 08:16; Status DC Heparin Sodium (Porcine) (Hep Lock Adult) 500 unit STK-MED ONCE IVP ; Start 07/26/19 at 09:29; Stop 07/26/19 at 09:30; Status DC Sodium Chloride 1,000 ml @ 1,000 mls/hr Q1H PRN IV hypotension; Start 07/26/19 at 10:43; Stop 07/26/19 at 16:42; Status DC Sodium Chloride 1,000 ml @ 400 mls/hr Q2H30M PRN IV PATENCY; Start 07/26/19 at 10:43; Stop 07/26/19 at 22:42; Status DC Info (PHARMACY MONITORING -- do not chart) 1 each PRN DAILY PRN MC SEE COMMENTS; Start 07/26/19 at 10:45; Status UNV Info (PHARMACY MONITORING -- do not chart) 1 each PRN DAILY PRN MC SEE COMMENTS; Start 07/26/19 at 10:45; Status UNV Sodium Chloride 90 meq/Potassium Chloride 15 meq/ Magnesium Sulfate 12 meq/Calcium Gluconate 15 meq/ Multivitamins 10 ml/Chromium/ Copper/Manganese/ Seleni/Zn 0.5 ml/ Insulin Human Regular 25 unit/ Total Parenteral Nutrition/Amino Acids/Dextrose/ Fat Emulsion Intravenous 1,400 ml @ 58.333 mls/ hr TPN CONT IV Last administered on 07/26/19at 22:13; Start 07/26/19 at 22:00; Stop 07/27/19 at 21:59; Status DC Sodium Chloride 1,000 ml @ 1,000 mls/hr Q1H PRN IV hypotension; Start 07/27/19 at 07:50; Stop 07/27/19 at 13:49; Status DC Albumin Human 200 ml @ 200 mls/hr 1X ONCE IV ; Start 07/27/19 at 08:00; Stop 07/27/19 at 08:53; Status DC Diphenhydramine HCl (Benadryl) 25 mg 1X PRN PRN IV ITCHING; Start 07/27/19 at 08:00; Stop 07/28/19 at 07:59; Status DC Diphenhydramine HCl (Benadryl) 25 mg 1X PRN PRN IV ITCHING; Start 07/27/19 at 0 8:00; Stop 07/28/19 at 07:59; Status DC Info (PHARMACY MONITORING -- do not chart) 1 each PRN DAILY PRN MC SEE COMMENTS; Start 07/27/19 at 08:00; Stop 07/28/19 at 08:16; Status DC Albumin Human 50 ml @ 50 mls/hr 1X ONCE IV ; Start 07/27/19 at 08:53; Stop 07/27/19 at 08:56; Status DC Albumin Human 200 ml @ 50 mls/hr PRN 1X PRN IV HYPOTENSION Last administered on 08/02/19at 11:54; Start 07/27/19 at 09:00; Stop 09/08/19 at 11:14; Status DC Meropenem 500 mg/ Sodium Chloride 50 ml @ 100 mls/hr Q12H IV Last administered on 08/16/19at 10:45; Start 07/27/19 at 10:00; Stop 08/16/19 at 12:37; Status DC Sodium Chloride 90 meq/Magnesium Sulfate 12 meq/ Calcium Gluconate 15 meq/ Multivitamins 10 ml/Chromium/ Copper/Manganese/ Seleni/Zn 0.5 ml/ Insulin Human Regular 25 unit/ Total Parenteral Nutrition/Amino Acids/Dextrose/ Fat Emulsion Intravenous 1,400 ml @ 58.333 mls/ hr TPN CONT IV Last administered on 07/27/19at 21:41; Start 07/27/19 at 22:00; Stop 07/28/19 at 21:59; Status DC Sodium Chloride 1,000 ml @ 1,000 mls/hr Q1H PRN IV hypotension; Start 07/28/19 at 07:58; Stop 07/28/19 at 13:57; Status DC Albumin Human 200 ml @ 200 mls/hr 1X PRN PRN IV Hypotension Last administered on 07/28/19at 09:30; Start 07/28/19 at 08:00; Stop 07/28/19 at 13:59; Status DC Sodium Chloride 1,000 ml @ 400 mls/hr Q2H30M PRN IV PATENCY; Start 07/28/19 at 07:58; Stop 07/28/19 at 19:57; Status DC Info (PHARMACY MONITORING -- do not chart) 1 each PRN DAILY PRN MC SEE COMMENTS; Start 07/28/19 at 08:00; Status Cancel Info (PHARMACY MONITORING -- do not chart) 1 each PRN DAILY PRN MC SEE COMMENTS; Start 07/28/19 at 08:15; Status UNV Sodium Chloride 90 meq/Potassium Phosphate 5 mmol/ Magnesium Sulfate 12 meq/Calcium Gluconate 15 meq/ Multivitamins 10 ml/Chromium/ Copper/Manganese/ Seleni/Zn 0.5 ml/ Insulin Human Regular 30 unit/ Total Parenteral Nutrition/Amino Acids/Dextrose/ Fat Emulsion Intravenous 1,400 ml @ 58.333 mls/ hr TPN CONT IV Last administered on 07/28/19at 22:08; Start 07/28/19 at 22:00; Stop 07/29/19 at 21:59; Status DC Linezolid/Dextrose 300 ml @ 300 mls/hr Q12HR IV Last administered on 08/08/19at 20:40; Start 07/29/19 at 11:00; Stop 08/09/19 at 08:10; Status DC Sodium Chloride 90 meq/Potassium Phosphate 15 mmol/ Magnesium Sulfate 12 meq/Calcium Gluconate 15 meq/ Multivitamins 10 ml/Chromium/ Copper/Manganese/ Seleni/Zn 0.5 ml/ Insulin Human Regular 30 unit/ Total Parenteral Nutrition/Amino Acids/Dextrose/ Fat Emulsion Intravenous 1,400 ml @ 58.333 mls/ hr TPN CONT IV Last administered on 07/29/19at 21:49; Start 07/29/19 at 22:00; Stop 07/30/19 at 21:59; Status DC Sodium Chloride 90 meq/Potassium Phosphate 15 mmol/ Magnesium Sulfate 12 meq/Calcium Gluconate 15 meq/ Multivitamins 10 ml/Chromium/ Copper/Manganese/ Seleni/Zn 0.5 ml/ Insulin Human Regular 40 unit/ Total Parenteral Nutri tion/Amino Acids/Dextrose/ Fat Emulsion Intravenous 1,400 ml @ 58.333 mls/ hr TPN CONT IV Last administered on 07/30/19at 21:21; Start 07/30/19 at 22:00; Stop 07/31/19 at 21:59; Status DC Sodium Chloride 1,000 ml @ 1,000 mls/hr Q1H PRN IV hypotension; Start 07/30/19 at 13:26; Stop 07/30/19 at 19:25; Status DC Albumin Human 200 ml @ 200 mls/hr 1X PRN PRN IV Hypotension Last administered on 07/30/19at 15:00; Start 07/30/19 at 13:30; Stop 07/30/19 at 19:29; Status DC Sodium Chloride (Normal Saline Flush) 10 ml 1X PRN PRN IV AP catheter pack; Start 07/30/19 at 13:30; Stop 07/31/19 at 13:29; Status DC Sodium Chloride (Normal Saline Flush) 10 ml 1X PRN PRN IV CLASSIFIER TENDER catheter pack; Start 07/30/19 at 13:30; Stop 07/31/19 at 13:29; Status DC Sodium Chloride 1,000 ml @ 400 mls/hr Q2H30M PRN IV PATENCY; Start 07/30/19 at 13:26; Stop 07/31/19 at 01:25; Status DC Info (PHARMACY MONITORING -- do not chart) 1 each PRN DAILY PRN MC SEE COMMENTS; Start 07/30/19 at 13:30; Stop 07/30/19 at 13:33; Status DC Info (PHARMACY MONITORING -- do not chart) 1 each PRN DAILY PRN MC SEE COMMENTS; Start 07/30/19 at 13:30; Stop 07/30/19 at 13:34; Status DC Sodium Chloride 90 meq/Potassium Phosphate 19 mmol/ Magnesium Sulfate 12 meq/Calcium Gluconate 15 meq/ Multivitamins 10 ml/Chromium/ Copper/Manganese/ Seleni/Zn 0.5 ml/ Insulin Human Regular 40 unit/ Total Parenteral Nutrition/Amino Acids/Dextrose/ Fat Emulsion Intravenous 1,400 ml @ 58.333 mls/ hr TPN CONT IV Last administered on 07/31/19at 21:54; Start 07/31/19 at 22:00; Stop 08/01/19 at 21:59; Status DC Sodium Chloride 1,000 ml @ 1,000 mls/hr Q1H PRN IV hypotension; Start 08/01/19 at 09:35; Stop 08/01/19 at 15:34; Status DC Albumin Human 200 ml @ 200 mls/hr 1X PRN PRN IV Hypotension; Start 08/01/19 at 09:45; Stop 08/01/19 at 15:44; Status DC Diphenhydramine HCl (Benadryl) 25 mg 1X PRN PRN IV ITCHING; Start 08/01/19 at 09:45; Stop 08/02/19 at 09:44; Status DC Diphenhydramine HCl (Benadryl) 25 mg 1X PRN PRN IV ITCHING; Start 08/01/19 at 09:45; Stop 08/02/19 at 09:44; Status DC Sodium Chloride 1,000 ml @ 400 mls/hr Q2H30M PRN IV PATENCY; Start 08/01/19 at 09:35; Stop 08/01/19 at 21:34; Status DC Info (PHARMACY MONITORING -- do not chart) 1 each PRN DAILY PRN MC SEE COMMENTS; Start 08/01/19 at 09:45; Status Cancel Sodium Chloride 100 meq/Potassium Phosphate 19 mmol/ Magnesium Sulfate 12 meq/Calcium Gluconate 15 meq/ Multivitamins 10 ml/Chromium/ Copper/Manganese/ Seleni/Zn 0.5 ml/ Insulin Human Regular 40 unit/ Potassium Chloride 20 meq/ Total Parenteral Nutrition/Amino Acids/Dextrose/ Fat Emulsion Intravenous 1,400 ml @ 58.333 mls/ hr TPN CONT IV Last administered on 08/01/19at 22:02; Start 08/01/19 at 22:00; Stop 08/02/19 at 21:59; Status DC Furosemide (Lasix) 40 mg 1X ONCE IVP Last administered on 08/01/19at 14:39; Start 08/01/19 at 14:30; Stop 08/01/19 at 14:31; Status DC Metronidazole 100 ml @ 100 mls/hr Q8HRS IV Last administered on 08/09/19at 06:04; Start 08/02/19 at 10:00; Stop 08/09/19 at 08:10; Status DC Sodium Chloride 1,000 ml @ 1,000 mls/hr Q1H PRN IV hypotension; Start 08/02/19 at 08:00; Stop 08/02/19 at 13:59; Status DC Albumin Human 200 ml @ 200 mls/hr 1X PRN PRN IV Hypotension; Start 08/02/19 at 08:00; Stop 08/02/19 at 13:59; Status DC Sodium Chloride 1,000 ml @ 400 mls/hr Q2H30M PRN IV PATENCY; Start 08/02/19 at 08:00; Stop 08/02/19 at 19:59; Status DC Info (PHARMACY MONITORING -- do not chart) 1 each PRN DAILY PRN MC SEE COMMENTS; Start 08/02/19 at 11:30; Status UNV Info (PHARMACY MONITORING -- do not chart) 1 each PRN DAILY PRN MC SEE COMMENTS; Start 08/02/19 at 11:30; Stop 08/04/19 at 12:13; Status DC Sodium Chloride 100 meq/Potassium Phosphate 19 mmol/ Magnesium Sulfate 12 meq/Calcium Gluconate 15 meq/ Multivitamins 10 ml/Chromium/ Copper/Manganese/ Seleni/Zn 0.5 ml/ Insulin Human Regular 40 unit/ Potassium Chloride 20 meq/ Total Parenteral Nutrition/Amino Acids/Dextrose/ Fat Emulsion Intravenous 1,400 ml @ 58.333 mls/ hr TPN CONT IV Last administered on 08/02/19at 21:52; Start 08/02/19 at 22:00; Stop 08/03/19 at 21:59; Status DC Sodium Chloride (Normal Saline Flush) 10 ml QSHIFT PRN IV AFTER MEDS AND BLOOD DRAWS; Start 08/02/19 at 15:00; Stop 08/30/19 at 11:27; Status DC Sodium Chloride (Normal Saline Flush) 10 ml PRN Q5MIN PRN IV AFTER MEDS AND BLOOD DRAWS; Start 08/02/19 at 15:00 Sodium Chloride (Normal Saline Flush) 20 ml PRN Q5MIN PRN IV AFTER MEDS AND BLOOD DRAWS; Start 08/02/19 at 15:00 Sodium Chloride 100 meq/Potassium Phosphate 19 mmol/ Magnesium Sulfate 12 meq/Calcium Gluconate 15 meq/ Multivitamins 10 ml/Chromium/ Copper/Manganese/ Seleni/Zn 0.5 ml/ Insulin Human Regular 40 unit/ Potassium Chloride 20 meq/ Total Parenteral Nutrition/Amino Acids/Dextrose/ Fat Emulsion Intravenous 1,400 ml @ 58.333 mls/ hr TPN CONT IV Last administered on 08/03/19at 21:20; Start 08/03/19 at 22:00; Stop 08/04/19 at 21:59; Status DC Lidocaine HCl (Buffered Lidocaine 1%) 3 ml STK-MED ONCE .ROUTE ; Start 08/03/19 at 13:16; Stop 08/03/19 at 13:16; Status DC Lidocaine HCl (Buffered Lidocaine 1%) 6 ml 1X ONCE INJ Last administered on 08/03/19at 13:45; Start 08/03/19 at 13:30; Stop 08/03/19 at 13:31; Status DC Albumin Human 100 ml @ 100 mls/hr 1X ONCE IV Last administered on 08/03/19at 15:41; Start 08/03/19 at 15:00; Stop 08/03/19 at 15:59; Status DC Albumin Human 50 ml @ 50 mls/hr 1X ONCE IV Last administered on 08/03/19at 15:00; Start 08/03/19 at 15:00; Stop 08/03/19 at 15:59; Status DC Info (PHARMACY MONITORING -- do not chart) 1 each PRN DAILY PRN MC SEE COMMENTS; Start 08/04/19 at 11:30; Status Cancel Info (PHARMACY MONITORING -- do not chart) 1 each PRN DAILY PRN MC SEE COMMENTS; Start 08/04/19 at 11:30; Status UNV Sodium Chloride 100 meq/Potassium Phosphate 10 mmol/ Magnesium Sulfate 12 meq/Calcium Gluconate 15 meq/ Multivitamins 10 ml/Chromium/ Copper/Manganese/ Seleni/Zn 0.5 ml/ Insulin Human Regular 35 unit/ Potassium Chloride 20 meq/ Total Parenteral Nutrition/Amino Acids/Dextrose/ Fat Emulsion Intravenous 1,400 ml @ 58.333 mls/ hr TPN CONT IV Last administered on 08/04/19at 22:10; Start 08/04/19 at 22:00; Stop 08/05/19 at 21:59; Status DC Sodium Chloride 100 meq/Potassium Phosphate 5 mmol/ Magnesium Sulfate 12 meq/Calcium Gluconate 15 meq/ Multivitamins 10 ml/Chromium/ Copper/Manganese/ Seleni/Zn 0.5 ml/ Insulin Human Regular 35 unit/ Potassium Chloride 20 meq/ Total Parenteral Nutrition/Amino Acids/Dextrose/ Fat Emulsion Intravenous 1,400 ml @ 58.333 mls/ hr TPN CONT IV Last administered on 08/05/19at 22:59; Start 08/05/19 at 22:00; Stop 08/06/19 at 21:59; Status DC Sodium Chloride 1,000 ml @ 1,000 mls/hr Q1H PRN IV hypotension; Start 08/06/19 at 08:27; Stop 08/06/19 at 14:26; Status DC Albumin Human 200 ml @ 200 mls/hr 1X PRN PRN IV Hypotension Last administered on 08/06/19at 09:18; Start 08/06/19 at 08:30; Stop 08/06/19 at 14:29; Status DC Sodium Chloride 1,000 ml @ 400 mls/hr Q2H30M PRN IV PATENCY; Start 08/06/19 at 08:27; Stop 08/06/19 at 20:26; Status DC Info (PHARMACY MONITORING -- do not chart) 1 each PRN DAILY PRN MC SEE COMMENTS; Start 08/06/19 at 08:30; Status Cancel Info (PHARMACY MONITORING -- do not chart) 1 each PRN DAILY PRN MC SEE COMMENTS; Start 08/06/19 at 08:30; Stop 08/14/19 at 13:10; Status DC Sodium Chloride 100 meq/Potassium Chloride 40 meq/ Magnesium Sulfate 15 meq/Calcium Gluconate 15 meq/ Multivitamins 10 ml/Chromium/ Copper/Manganese/ Seleni/Zn 0.5 ml/ Insulin Human Regular 35 unit/ Total Parenteral Nutrition/Amino Acids/Dextrose/ Fat Emulsion Intravenous 1,400 ml @ 58.333 mls/ hr TPN CONT IV Last administered on 08/06/19at 22:00; Start 08/06/19 at 22:00; Stop 08/07/19 at 21:59; Status DC Potassium Chloride/Water 100 ml @ 100 mls/hr 1X ONCE IV Last administered on 08/06/19at 17:28; Start 08/06/19 at 14:45; Stop 08/06/19 at 15:44; Status DC Sodium Chloride 100 meq/Potassium Chloride 40 meq/ Magnesium Sulfate 15 meq/Calcium Gluconate 15 meq/ Multivitamins 10 ml/Chromium/ Copper/Manganese/ Seleni/Zn 0.5 ml/ Insulin Human Regular 35 unit/ Total Parenteral Nutri tion/Amino Acids/Dextrose/ Fat Emulsion Intravenous 1,400 ml @ 58.333 mls/ hr TPN CONT IV Last administered on 08/07/19at 22:46; Start 08/07/19 at 22:00; Stop 08/08/19 at 21:59; Status DC Sodium Chloride 100 meq/Potassium Chloride 40 meq/ Magnesium Sulfate 20 meq/Calcium Gluconate 15 meq/ Multivitamins 10 ml/Chromium/ Copper/Manganese/ Seleni/Zn 0.5 ml/ Insulin Human Regular 35 unit/ Total Parenteral Nutrition/Amino Acids/Dextrose/ Fat Emulsion Intravenous 1,400 ml @ 58.333 mls/ hr TPN CONT IV Last administered on 08/08/19at 22:31; Start 08/08/19 at 22:00; Stop 08/09/19 at 21:59; Status DC Fentanyl Citrate (Fentanyl 2ml Vial) 50 mcg PRN Q2HR PRN IVP PAIN Last administered on 08/15/19at 13:32; Start 08/08/19 at 21:00; Stop 08/16/19 at 12:53; Status DC Fentanyl Citrate (Fentanyl 2ml Vial) 25 mcg PRN Q2HR PRN IVP PAIN; Start 08/08/19 at 21:00; Stop 08/16/19 at 12:54; Status DC Enoxaparin Sodium (Lovenox 100mg Syringe) 100 mg Q12HR SQ ; Start 08/09/19 at 21:00; Status UNV Amino Acids/ Glycerin/ Electrolytes 1,000 ml @ 75 mls/hr [id number] IV ; Start 08/08/19 at 21:15; Status UNV Sodium Chloride 1,000 ml @ 1,000 mls/hr Q1H PRN IV hypotension; Start 08/09/19 at 07:56; Stop 08/09/19 at 13:55; Status DC Albumin Human 200 ml @ 200 mls/hr 1X PRN PRN IV Hypotension Last administered on 08/09/19at 08:40; Start 08/09/19 at 08:00; Stop 08/09/19 at 13:59; Status DC Sodium Chloride 1,000 ml @ 400 mls/hr Q2H30M PRN IV PATENCY; Start 08/09/19 at 07:56; Stop 08/09/19 at 19:55; Status DC Info (PHARMACY MONITORING -- do not chart) 1 each PRN DAILY PRN MC SEE COMMENTS; Start 08/09/19 at 08:00; Status UNV Info (PHARMACY MONITORING -- do not chart) 1 each PRN DAILY PRN MC SEE COMMENTS; Start 08/09/19 at 08:00; Status UNV Daptomycin 430 mg/ Sodium Chloride 50 ml @ 100 mls/hr Q24H IV Last administered on 08/09/19at 12:35; Start 08/09/19 at 09:00; Stop 08/09/19 at 12:49; Status DC Sodium Chloride 100 meq/Potassium Chloride 40 meq/ Magnesium Sulfate 20 meq/Calcium Gluconate 15 meq/ Multivitamins 10 ml/Chromium/ Copper/Manganese/ Seleni/Zn 0.5 ml/ Insulin Human Regular 35 unit/ Total Parenteral Nutrition/Amino Acids/Dextrose/ Fat Emulsion Intravenous 1,400 ml @ 58.333 mls/ hr TPN CONT IV Last administered on 08/09/19at 21:26; Start 08/09/19 at 22:00; Stop 08/10/19 at 21:59; Status DC Daptomycin 430 mg/ Sodium Chloride 50 ml @ 100 mls/hr Q48H IV ; Start 08/11/19 at 09:00; Stop 08/10/19 at 11:55; Status DC Sodium Chloride 100 meq/Potassium Chloride 40 meq/ Magnesium Sulfate 20 meq/Calcium Gluconate 15 meq/ Multivitamins 10 ml/Chromium/ Copper/Manganese/ Seleni/Zn 0.5 ml/ Insulin Human Regular 35 unit/ Total Parenteral Nutrition/Amino Acids/Dextrose/ Fat Emulsion Intravenous 1,400 ml @ 58.333 mls/ hr TPN CONT IV Last administered on 08/10/19at 22:27; Start 08/10/19 at 22:00; Stop 08/11/19 at 21:59; Status DC Daptomycin 430 mg/ Sodium Chloride 50 ml @ 100 mls/hr Q24H IV Last administered on 08/12/19at 15:07; Start 08/10/19 at 13:00; Stop 08/13/19 at 13:15; Status DC Sodium Chloride 100 meq/Potassium Chloride 40 meq/ Magnesium Sulfate 20 meq/Calcium Gluconate 10 meq/ Multivitamins 10 ml/Chromium/ Copper/Manganese/ Seleni/Zn 0.5 ml/ Insulin Human Regular 35 unit/ Total Parenteral Nutrition/Amino Acids/Dextrose/ Fat Emulsion Intravenous 1,400 ml @ 58.333 mls/ hr TPN CONT IV Last administered on 08/12/19at 00:06; Start 08/11/19 at 22:00; Stop 08/12/19 at 21:59; Status DC Alteplase, Recombinant (Cathflo For Central Catheter Clearance) 1 mg 1X ONCE INT CAT Last administered on 08/12/19at 11:44; Start 08/12/19 at 10:45; Stop 08/12/19 at 10:46; Status DC Ondansetron HCl (Zofran) 4 mg PRN Q6HRS PRN IV NAUSEA/VOMITING; Start 08/15/19 at 07:00; Stop 08/16/19 at 06:59; Status DC Fentanyl Citrate (Fentanyl 2ml Vial) 25 mcg PRN Q5MIN PRN IV MILD PAIN 1-3; Start 08/15/19 at 07:00; Stop 08/16/19 at 06:59; Status DC Fentanyl Citrate (Fentanyl 2ml Vial) 50 mcg PRN Q5MIN PRN IV MODERATE TO SEVERE PAIN Last administered on 08/15/19at 10:17; Start 08/15/19 at 07:00; Stop 08/16/19 at 06:59; Status DC Ringer's Solution 1,000 ml @ 30 mls/hr Q24H IV ; Start 08/15/19 at 07:00; Stop 08/15/19 at 18:59; Status DC Lidocaine HCl (Xylocaine-Mpf 1% 2ml Vial) 2 ml PRN 1X PRN ID PRIOR TO IV START; Start 08/15/19 at 07:00; Stop 08/16/19 at 06:59; Status DC Prochlorperazine Edisylate (Compazine) 5 mg PACU PRN PRN IV NAUSEA, MRX1; Start 08/15/19 at 07:00; Stop 08/16/19 at 06:59; Status DC Sodium Acetate 50 meq/Potassium Acetate 55 meq/ Magnesium Sulfate 20 meq/Calcium Gluconate 10 meq/ Multivitamins 10 ml/Chromium/ Copper/Manganese/ Seleni/Zn 0.5 ml/ Insulin Human Regular 35 unit/ Total Parenteral Nutrition/Amino Acids/Dextrose/ Fat Emulsion Intravenous 1,400 ml @ 58.333 mls/ hr TPN CONT IV ; Start 08/12/19 at 22:00; Stop 08/12/19 at 14:15; Status DC Sodium Acetate 50 meq/Potassium Acetate 55 meq/ Magnesium Sulfate 20 meq/Calcium Gluconate 10 meq/ Multivitamins 10 ml/Chromium/ Copper/Manganese/ Seleni/Zn 0.5 ml/ Insulin Human Regular 35 unit/ Total Parenteral Nutrition/Amino Acids/Dextrose/ Fat Emulsion Intravenous 1,800 ml @ 75 mls/hr TPN CONT IV Last administered on 08/12/19at 22:38; Start 08/12/19 at 22:00; Stop 08/13/19 at 21:59; Status DC Sodium Chloride 1,000 ml @ 1,000 mls/hr Q1H PRN IV hypotension; Start 08/12/19 at 15:31; Stop 08/12/19 at 21:30; Status DC Diphenhydramine HCl (Benadryl) 25 mg 1X PRN PRN IV ITCHING; Start 08/12/19 at 15:45; Stop 08/13/19 at 15:44; Status DC Diphenhydramine HCl (Benadryl) 25 mg 1X PRN PRN IV ITCHING; Start 08/12/19 at 15:45; Stop 08/13/19 at 15:44; Status DC Sodium Chloride 1,000 ml @ 400 mls/hr Q2H30M PRN IV PATENCY; Start 08/12/19 at 15:31; Stop 08/13/19 at 03:30; Status DC Info (PHARMACY MONITORING -- do not chart) 1 each PRN DAILY PRN MC SEE COMMENTS; Start 08/12/19 at 15:45; Stop 09/13/19 at 14:14; Status DC Sodium Acetate 50 meq/Potassium Acetate 55 meq/ Magnesium Sulfate 20 meq/Calcium Gluconate 10 meq/ Multivitamins 10 ml/Chromium/ Copper/Manganese/ Seleni/Zn 0.5 ml/ Insulin Human Regular 35 unit/ Total Parenteral Nutrition/Amino Acids/Dextrose/ Fat Emulsion Intravenous 1,800 ml @ 75 mls/hr TPN CONT IV Last administered on 08/13/19at 22:03; Start 08/13/19 at 22:00; Stop 08/14/19 at 21:59; Status DC Daptomycin 430 mg/ Sodium Chloride 50 ml @ 100 mls/hr Q24H IV Last administered on 08/18/19at 13:00; Start 08/13/19 at 13:00; Stop 08/18/19 at 20:58; Status DC Heparin Sodium (Porcine) 1000 unit/Sodium Chloride 1,001 ml @ 1,001 mls/hr 1X ONCE IRR ; Start 08/15/19 at 06:00; Stop 08/15/19 at 06:59; Status DC Potassium Acetate 55 meq/Magnesium Sulfate 20 meq/ Calcium Gluconate 10 meq/ Multivitamins 10 ml/Chromium/ Copper/Manganese/ Seleni/Zn 0.5 ml/ Insulin Human Regular 35 unit/ Total Parenteral Nutrition/Amino Acids/Dextrose/ Fat Emulsion Intravenous 1,920 ml @ 80 mls/hr TPN CONT IV Last administered on 08/14/19at 22:10; Start 08/14/19 at 22:00; Stop 08/15/19 at 21:59; Status DC Dexamethasone Sodium Phosphate (Decadron) 4 mg STK-MED ONCE .ROUTE ; Start 08/15/19 at 10:56; Stop 08/15/19 at 10:57; Status DC Ondansetron HCl (Zofran) 4 mg STK-MED ONCE .ROUTE ; Start 08/15/19 at 10:56; Stop 08/15/19 at 10:57; Status DC Rocuronium [place] (Zemuron) 50 mg STK-MED ONCE .ROUTE ; Start 08/15/19 at 10:56; Stop 08/15/19 at 10:57; Status DC Fentanyl Citrate (Fentanyl 2ml Vial) 100 mcg STK-MED ONCE .ROUTE ; Start 08/15/19 at 10:56; Stop 08/15/19 at 10:57; Status DC Bupivacaine HCl/ Epinephrine Bitart (Sensorcain-Epi 0.5%-1:[id number] Mpf) 30 ml STK-MED ONCE .ROUTE Last administered on 08/15/19at 12:01; Start 08/15/19 at 10:58; Stop 08/15/19 at 10:58; Status DC Cellulose (Surgicel Hemostat 2x14) 1 each STK-MED ONCE .ROUTE ; Start 08/15/19 at 10:58; Stop 08/15/19 at 10:59; Status DC Iohexol (Omnipaque 300 Mg/ml) 50 ml STK-MED ONCE .ROUTE ; Start 08/15/19 at 10:58; Stop 08/15/19 at 10:59; Status DC Cellulose (Surgicel Hemostat 4x8) 1 each STK-MED ONCE .ROUTE ; Start 08/15/19 at 10:58; Stop 08/15/19 at 10:59; Status DC Bisacodyl (Dulcolax Supp) 10 mg STK-MED ONCE .ROUTE ; Start 08/15/19 at 10:59; Stop 08/15/19 at 10:59; Status DC Heparin Sodium (Porcine) 1000 unit/Sodium Chloride 1,001 ml @ 1,001 mls/hr 1X ONCE IRR ; Start 08/15/19 at 12:00; Stop 08/15/19 at 12:59; Status DC Propofol 20 ml @ As Directed STK-MED ONCE IV ; Start 08/15/19 at 11:05; Stop 08/15/19 at 11:05; Status DC Sevoflurane (Ultane) 90 ml STK-MED ONCE IH ; Start 08/15/19 at 11:05; Stop 08/15/19 at 11:05; Status DC Sevoflurane (Ultane) 60 ml STK-MED ONCE IH ; Start 08/15/19 at 12:26; Stop 08/15/19 at 12:27; Status DC Propofol 20 ml @ As Directed STK-MED ONCE IV ; Start 08/15/19 at 12:26; Stop 08/15/19 at 12:27; Status DC Phenylephrine HCl (PHENYLEPHRINE in 0.9% NACL PF) 1 mg STK-MED ONCE IV ; Start 08/15/19 at 12:34; Stop 08/15/19 at 12:34; Status DC Heparin Sodium (Porcine) (Heparin Sodium) 5,000 unit Q12HR SQ Last administered on 08/24/19at 20:57; Start 08/15/19 at 21:00; Stop 08/25/19 at 09:59; Status DC Sodium Chloride (Normal Saline Flush) 3 ml QSHIFT PRN IV AFTER MEDS AND BLOOD DRAWS; Start 08/15/19 at 13:45 Naloxone HCl (Narcan) 0.4 mg PRN Q2MIN PRN IV SEE INSTRUCTIONS Last administered on 09/24/19at 15:15; Start 08/15/19 at 13:45 Sodium Chloride 1,000 ml @ 25 mls/hr Q24H IV Last administered on 09/13/19at 13:37; Start 08/15/19 at 13:37; Stop 09/16/19 at 13:09; Status DC Naloxone HCl (Narcan) 0.4 mg PRN Q2MIN PRN IV SEE INSTRUCTIONS; Start 08/15/19 at 14:30; Status UNV Sodium Chloride 1,000 ml @ 25 mls/hr Q24H IV ; Start 08/15/19 at 14:30; Status UNV Hydromorphone HCl 30 ml @ 0 mls/hr CONT PRN PRN IV PER PROTOCOL Last administered on 08/20/19at 16:08; Start 08/15/19 at 14:30; Stop 08/22/19 at 08:55; Status DC Potassium Acetate 55 meq/Magnesium Sulfate 20 meq/ Calcium Gluconate 10 meq/ Multivitamins 10 ml/Chromium/ Copper/Manganese/ Seleni/Zn 0.5 ml/ Insulin Human Regular 35 unit/ Total Parenteral Nutrition/Amino Acids/Dextrose/ Fat Emulsion Intravenous 1,920 ml @ 80 mls/hr TPN CONT IV Last administered on 08/15/19at 22:01; Start 08/15/19 at 22:00; Stop 08/16/19 at 21:59; Status DC Bumetanide (Bumex) 2 mg [id number] IV Last administered on 08/19/19at 13:50; Start 08/16/19 at 14:00; Stop 08/20/19 at 14:10; Status DC Meropenem 1 gm/ Sodium Chloride 100 ml @ 200 mls/hr Q8HRS IV Last administered on 09/09/19at 05:53; Start 08/16/19 at 14:00; Stop 09/09/19 at 09:31; Status DC Potassium Acetate 55 meq/Magnesium Sulfate 20 meq/ Calcium Gluconate 10 meq/ Multivitamins 10 ml/Chromium/ Copper/Manganese/ Seleni/Zn 0.5 ml/ Insulin Human Regular 35 unit/ Total Parenteral Nutrition/Amino Acids/Dextrose/ Fat Emulsion Intravenous 1,920 ml @ 80 mls/hr TPN CONT IV Last administered on 08/16/19at 22:02; Start 08/16/19 at 22:00; Stop 08/17/19 at 21:59; Status DC Hydromorphone HCl (Dilaudid Standard TEMPLE MARKER) 12 mg STK-MED ONCE IV ; Start 08/15/19 at 14:35; Stop 08/16/19 at 13:53; Status DC Artificial Tears (Artificial Tears) 1 drop PRN Q15MIN PRN OU DRY EYE Last administered on 10/03/19at 03:38; Start 08/17/19 at 05:30 Hydromorphone HCl (Dilaudid Standard TEMPLE MARKER) 12 mg STK-MED ONCE IV ; Start 08/16/19 at 12:05; Stop 08/17/19 at 09:15; Status DC Potassium Acetate 65 meq/Magnesium Sulfate 20 meq/ Calcium Gluconate 10 meq/ Multivitamins 10 ml/Chromium/ Copper/Manganese/ Seleni/Zn 0.5 ml/ Insulin Human Regular 30 unit/ Total Parenteral Nutrition/Amino Acids/Dextrose/ Fat Emulsion Intravenous 1,920 ml @ 80 mls/hr TPN CONT IV Last administered on 08/17/19at 22:22; Start 08/17/19 at 22:00; Stop 08/18/19 at 21:59; Status DC Cyclobenzaprine HCl (Flexeril) 10 mg PRN Q6HRS PRN PO MUSCLE SPASMS; Start 08/18/19 at 10:45 Potassium Acetate 55 meq/Magnesium Sulfate 20 meq/ Calcium Gluconate 10 meq/ Multivitamins 10 ml/Chromium/ Copper/Manganese/ Seleni/Zn 0.5 ml/ Insulin Human Regular 30 unit/ Total Parenteral Nutrition/Amino Acids/Dextrose/ Fat Emulsion Intravenous 1,920 ml @ 80 mls/hr TPN CONT IV Last administered on 08/19/19at 01:00; Start 08/18/19 at 22:00; Stop 08/19/19 at 21:59; Status DC Magnesium Sulfate 50 ml @ 25 mls/hr 1X ONCE IV Last administered on 08/18/19at 17:18; Start 08/18/19 at 12:45; Stop 08/18/19 at 14:44; Status DC Potassium Chloride/Water 100 ml @ 100 mls/hr 1X ONCE IV Last administered on 08/19/19at 11:27; Start 08/19/19 at 12:00; Stop 08/19/19 at 12:59; Status DC Hydromorphone HCl (Dilaudid Standard TEMPLE MARKER) 12 mg STK-MED ONCE IV ; Start 08/17/19 at 10:50; Stop 08/19/19 at 11:02; Status DC Hydromorphone HCl (Dilaudid Standard TEMPLE MARKER) 12 mg STK-MED ONCE IV ; Start 08/18/19 at 13:47; Stop 08/19/19 at 11:03; Status DC Potassium Acetate 30 meq/Magnesium Sulfate 20 meq/ Calcium Gluconate 10 meq/ Multivitamins 10 ml/Chromium/ Copper/Manganese/ Seleni/Zn 0.5 ml/ Insulin Human Regular 30 unit/ Potassium Chloride 30 meq/ Total Parenteral Nutrition/Amino Acids/Dextrose/ Fat Emulsion Intravenous 1,920 ml @ 80 mls/hr TPN CONT IV Last administered on 08/19/19at 22:34; Start 08/19/19 at 22:00; Stop 08/20/19 at 21:59; Status DC Potassium Chloride/Water 100 ml @ 100 mls/hr Q1H IV Last administered on 08/20/19at 13:05; Start 08/20/19 at 07:00; Stop 08/20/19 at 10:59; Status DC Magnesium Sulfate 50 ml @ 25 mls/hr 1X ONCE IV Last administered on 08/20/19at 10:34; Start 08/20/19 at 10:30; Stop 08/20/19 at 12:29; Status DC Potassium Chloride 75 meq/ Magnesium Sulfate 20 meq/Calcium Gluconate 10 meq/ Multivitamins 10 ml/Chromium/ Copper/Manganese/ Seleni/Zn 0.5 ml/ Insulin Human Regular 30 unit/ Total Parenteral Nutrition/Amino Acids/Dextrose/ Fat Emulsion Intravenous 1,920 ml @ 80 mls/hr TPN CONT IV Last administered on 08/20/19at 21:51; Start 08/20/19 at 22:00; Stop 08/21/19 at 22:00; Status DC Potassium Chloride 75 meq/ Magnesium Sulfate 20 meq/Calcium Gluconate 10 meq/ Multivitamins 10 ml/Chromium/ Copper/Manganese/ Seleni/Zn 0.5 ml/ Insulin Human Regular 25 unit/ Total Parenteral Nutrition/Amino Acids/Dextrose/ Fat Emulsion Intravenous 1,920 ml @ 80 mls/hr TPN CONT IV Last administered on 08/21/19at 22:04; Start 08/21/19 at 22:00; Stop 08/22/19 at 21:59; Status DC Hydromorphone HCl (Dilaudid) 0.4 mg PRN Q4HRS PRN IVP PAIN Last administered on 08/22/19at 10:57; Start 08/22/19 at 09:00; Stop 08/22/19 at 18:59; Status DC Micafungin Sodium 100 mg/Dextrose 100 ml @ 100 mls/hr Q24H IV Last administered on 09/13/19at 12:17; Start 08/22/19 at 11:00; Stop 09/14/19 at 09:59; Status DC Daptomycin 485 mg/ Sodium Chloride 50 ml @ 100 mls/hr Q24H IV Last administered on 08/29/19at 13:10; Start 08/22/19 at 11:00; Stop 08/30/19 at 07:44; Status DC Potassium Chloride 75 meq/ Magnesium Sulfate 15 meq/Calcium Gluconate 8 meq/ Multivitamins 10 ml/Chromium/ Copper/Manganese/ Seleni/Zn 0.5 ml/ Insulin Human Regular 25 unit/ Total Parenteral Nutrition/Amino Acids/Dextrose/ Fat Emulsion Intravenous 1,920 ml @ 80 mls/hr TPN CONT IV Last administered on 08/22/19at 23:08; Start 08/22/19 at 22:00; Stop 08/23/19 at 21:59; Status DC Haloperidol Lactate (Haldol Inj) 3 mg 1X ONCE IVP Last administered on 08/22/19at 14:37; Start 08/22/19 at 14:30; Stop 08/22/19 at 14:31; Status DC Hydromorphone HCl (Dilaudid) 1 mg PRN Q4HRS PRN IVP PAIN Last administered on 09/05/19at 06:25; Start 08/22/19 at 19:00; Stop 09/05/19 at 17:10; Status DC Potassium Chloride 75 meq/ Magnesium Sulfate 15 meq/Calcium Gluconate 8 meq/ Multivitamins 10 ml/Chromium/ Copper/Manganese/ Seleni/Zn 0.5 ml/ Insulin Human Regular 20 unit/ Total Parenteral Nutrition/Amino Acids/Dextrose/ Fat Emulsion Intravenous 1,920 ml @ 80 mls/hr TPN CONT IV Last administered on 08/23/19at 22 :10; Start 08/23/19 at 22:00; Stop 08/24/19 at 21:59; Status DC Lidocaine HCl (Buffered Lidocaine 1%) 3 ml STK-MED ONCE .ROUTE ; Start 08/24/19 at 11:31; Stop 08/24/19 at 11:31; Status DC Lidocaine HCl (Buffered Lidocaine 1%) 3 ml STK-MED ONCE .ROUTE ; Start 08/24/19 at 12:28; Stop 08/24/19 at 12:29; Status DC Lidocaine HCl (Buffered Lidocaine 1%) 6 ml 1X ONCE INJ Last administered on 08/24/19at 12:53; Start 08/24/19 at 12:45; Stop 08/24/19 at 12:46; Status DC Potassium Chloride 75 meq/ Magnesium Sulfate 15 meq/Calcium Gluconate 8 meq/ Multivitamins 10 ml/Chromium/ Copper/Manganese/ Seleni/Zn 0.5 ml/ Insulin Human Regular 20 unit/ Total Parenteral Nutrition/Amino Acids/Dextrose/ Fat Emulsion Intravenous 1,920 ml @ 80 mls/hr TPN CONT IV Last administered on 08/24/19at 22:00; Start 08/24/19 at 22:00; Stop 08/25/19 at 21:59; Status DC Potassium Chloride 75 meq/ Magnesium Sulfate 15 meq/Calcium Gluconate 8 meq/ Multivitamins 10 ml/Chromium/ Copper/Manganese/ Seleni/Zn 0.5 ml/ Insulin Human Regular 15 unit/ Total Parenteral Nutrition/Amino Acids/Dextrose/ Fat Emulsion Intravenous 1,920 ml @ 80 mls/hr TPN CONT IV Last administered on 08/25/19at 22:28; Start 08/25/19 at 22:00; Stop 08/26/19 at 21:59; Status DC Vecuronium [place] (Norcuron Bolus) 6 mg PRN Q6HRS PRN IV VENT ASYNCHRONY; Start 08/25/19 at 19:15; Stop 08/25/19 at 19:35; Status DC Bumetanide (Bumex) 2 mg 1X ONCE IV Last administered on 08/25/19at 22:09; Start 08/25/19 at 19:45; Stop 08/25/19 at 19:46; Status DC Lidocaine HCl (Buffered Lidocaine 1%) 3 ml STK-MED ONCE .ROUTE ; Start 08/26/19 at 07:59; Stop 08/26/19 at 07:59; Status DC Midazolam HCl (Versed) 5 mg STK-MED ONCE .ROUTE ; Start 08/26/19 at 08:36; Stop 08/26/19 at 08:36; Status DC Fentanyl Citrate (Fentanyl 5ml Vial) 250 mcg STK-MED ONCE .ROUTE ; Start 08/26/19 at 08:36; Stop 08/26/19 at 08:37; Status DC Lidocaine HCl (Buffered Lidocaine 1%) 3 ml 1X ONCE IJ Last administered on 08/26/19at 09:30; Start 08/26/19 at 09:15; Stop 08/26/19 at 09:16; Status DC Midazolam HCl (Versed) 5 mg 1X ONCE IV Last administered on 08/26/19at 09:30; Start 08/26/19 at 09:15; Stop 08/26/19 at 09:16; Status DC Fentanyl Citrate (Fentanyl 5ml Vial) 250 mcg 1X ONCE IV Last administered on 08/26/19at 09:30; Start 08/26/19 at 09:15; Stop 08/26/19 at 09:16; Status DC Bumetanide (Bumex) 2 mg DAILY IV Last administered on 09/05/19at 08:07; Start 08/26/19 at 10:00; Stop 09/05/19 at 17:15; Status DC Potassium Chloride 75 meq/ Magnesium Sulfate 15 meq/ Multivitamins 10 ml/Chromium/ Copper/Manganese/ Seleni/Zn 0.5 ml/ Insulin Human Regular 15 unit/ Total Parenteral Nutrition/Amino Acids/Dextrose/ Fat Emulsion Intravenous 1,920 ml @ 80 mls/hr TPN CONT IV Last administered on 08/26/19at 21:59; Start 08/26/19 at 22:00; Stop 08/27/19 at 21:59; Status DC Metoclopramide HCl (Reglan Vial) 10 mg PRN Q3HRS PRN IVP NAUSEA/VOMITING-3rd choice Last administered on 09/01/19at 04:25; Start 08/27/19 at 16:45 Potassium Chloride 75 meq/ Magnesium Sulfate 15 meq/ Multivitamins 10 ml/Chromium/ Copper/Manganese/ Seleni/Zn 0.5 ml/ Insulin Human Regular 15 unit/ Total Parenteral Nutrition/Amino Acids/Dextrose/ Fat Emulsion Intravenous 1,920 ml @ 80 mls/hr TPN CONT IV Last administered on 08/27/19at 22:41; Start 08/27/19 at 22:00; Stop 08/28/19 at 21:59; Status DC Magnesium Sulfate 50 ml @ 25 mls/hr 1X ONCE IV Last administered on 08/28/19at 10:44; Start 08/28/19 at 09:00; Stop 08/28/19 at 10:59; Status DC Potassium Chloride/Water 100 ml @ 100 mls/hr 1X ONCE IV Last administered on 08/28/19at 09:37; Start 08/28/19 at 09:00; Stop 08/28/19 at 09:59; Status DC Duloxetine HCl (Cymbalta) 30 mg DAILY PO Last administered on 08/29/19at 09:48; Start 08/28/19 at 14:00; Stop 08/31/19 at 10:25; Status DC Potassium Chloride 80 meq/ Magnesium Sulfate 20 meq/ Multivitamins 10 ml/Chromium/ Copper/Manganese/ Seleni/Zn 0.5 ml/ Insulin Human Regular 15 unit/ Total Parenteral Nutrition/Amino Acids/Dextrose/ Fat Emulsion Intravenous 1,920 ml @ 80 mls/hr TPN CONT IV Last administered on 08/28/19at 21:42; Start 08/28/19 at 22:00; Stop 08/29/19 at 21:59; Status DC Potassium Chloride 80 meq/ Magnesium Sulfate 20 meq/ Multivitamins 10 ml/Chromium/ Copper/Manganese/ Seleni/Zn 0.5 ml/ Insulin Human Regular 15 unit/ Total Parenteral Nutrition/Amino Acids/Dextrose/ Fat Emulsion Intravenous 1,920 ml @ 80 mls/hr TPN CONT IV Last administered on 08/29/19at 22:20; Start 08/29/19 at 22:00; Stop 08/30/19 at 21:59; Status DC Lidocaine HCl (Buffered Lidocaine 1%) 3 ml STK-MED ONCE .ROUTE ; Start 08/30/19 at 09:54; Stop 08/30/19 at 09:55; Status DC Hydromorphone HCl (Dilaudid Standard TEMPLE MARKER) 12 mg STK-MED ONCE IV ; Start 08/19/19 at 15:50; Stop 08/30/19 at 11:24; Status DC Potassium Chloride 80 meq/ Magnesium Sulfate 20 meq/ Multivitamins 10 ml/Chromium/ Copper/Manganese/ Seleni/Zn 0.5 ml/ Insulin Human Regular 15 unit/ Total Parenteral Nutrition/Amino Acids/Dextrose/ Fat Emulsion Intravenous 1,920 ml @ 80 mls/hr TPN CONT IV Last administered on 08/30/19at 21:40; Start 08/30/19 at 22:00; Stop 08/31/19 at 21:59; Status DC Lidocaine HCl (Buffered Lidocaine 1%) 6 ml 1X ONCE INJ Last administered on 08/30/19at 14:15; Start 08/30/19 at 14:15; Stop 08/30/19 at 14:16; Status DC Potassium Chloride 80 meq/ Magnesium Sulfate 20 meq/ Multivitamins 10 ml/Chromium/ Copper/Manganese/ Seleni/Zn 1 ml/ Insulin Human Regular 15 unit/ Total Parenteral Nutrition/Amino Acids/Dextrose/ Fat Emulsion Intravenous 1,920 ml @ 80 mls/hr TPN CONT IV Last administered on 08/31/19at 22:04; Start 08/31/19 at 22:00; Stop 09/01/19 at 21:59; Status DC Potassium Chloride/Water 100 ml @ 100 mls/hr 1X ONCE IV Last administered on 09/01/19at 11:34; Start 09/01/19 at 11:00; Stop 09/01/19 at 11:59; Status DC Potassium Chloride 90 meq/ Magnesium Sulfate 20 meq/ Multivitamins 10 ml/Chromium/ Copper/Manganese/ Seleni/Zn 1 ml/ Insulin Human Regular 15 unit/ Total Parenteral Nutrition/Amino Acids/Dextrose/ Fat Emulsion Intravenous 1,920 ml @ 80 mls/hr TPN CONT IV Last administered on 09/01/19at 22:57; Start 09/01/19 at 22:00; Stop 09/02/19 at 21:59; Status DC Potassium Chloride 90 meq/ Magnesium Sulfate 20 meq/ Multivitamins 10 ml/Chromium/ Copper/Manganese/ Seleni/Zn 1 ml/ Insulin Human Regular 15 unit/ Total Parenteral Nutrition/Amino Acids/Dextrose/ Fat Emulsion Intravenous 1,920 ml @ 80 mls/hr TPN CONT IV Last administered on 09/02/19at 22:48; Start 09/02/19 at 22:00; Stop 09/03/19 at 21:59; Status DC Potassium Chloride 90 meq/ Magnesium Sulfate 20 meq/ Multivitamins 10 ml/Chromium/ Copper/Manganese/ Seleni/Zn 1 ml/ Insulin Human Regular 15 unit/ Total Parenteral Nutrition/Amino Acids/Dextrose/ Fat Emulsion Intravenous 1,890 ml @ 78.75 mls/ hr TPN CONT IV Last administered on 09/03/19at 22:15; Start 09/03/19 at 22:00; Stop 09/04/19 at 21:59; Status DC Linezolid/Dextrose 300 ml @ 300 mls/hr Q12HR IV Last administered on 09/06/19at 21:08; Start 09/04/19 at 09:00; Stop 09/07/19 at 08:11; Status DC Daptomycin 450 mg/ Sodium Chloride 50 ml @ 100 mls/hr Q24H IV Last administered on 09/07/19at 09:25; Start 09/04/19 at 09:00; Stop 09/08/19 at 08:30; Status DC Potassium Chloride 90 meq/ Magnesium Sulfate 20 meq/ Multivitamins 10 ml/Chromium/ Copper/Manganese/ Seleni/Zn 1 ml/ Insulin Human Regular 15 unit/ Total Parenteral Nutrition/Amino Acids/Dextrose/ Fat Emulsion Intravenous 1,890 ml @ 78.75 mls/ hr TPN CONT IV Last administered on 09/04/19at 21:34; Start 09/04/19 at 22:00; Stop 09/05/19 at 21:59; Status DC Lorazepam (Ativan Inj) 2 mg STK-MED ONCE .ROUTE ; Start 09/04/19 at 14:58; Stop 09/04/19 at 14:58; Status DC Metoprolol Tartrate (Lopressor Vial) 5 mg 1X ONCE IVP Last administered on 09/04/19at 15:31; Start 09/04/19 at 15:15; Stop 09/04/19 at 15:16; Status DC Lorazepam (Ativan Inj) 2 mg 1X ONCE IVP Last administered on 09/04/19at 15:30; Start 09/04/19 at 15:15; Stop 09/04/19 at 15:16; Status DC Enoxaparin Sodium (Lovenox 40mg Syringe) 40 mg Q24H SQ Last administered on 09/23/19at 17:44; Start 09/04/19 at 17:00; Stop 09/25/19 at 06:50; Status DC Lorazepam (Ativan Inj) 1 mg PRN Q4HRS PRN IVP ANXIETY / AGITATION MILD-MOD Last administered on 09/18/19at 15:55; Start 09/04/19 at 19:15; Stop 09/20/19 at 11:45; Status DC Lorazepam (Ativan Inj) 2 mg PRN Q4HRS PRN IVP ANXIETY / AGITATION SEVERE Last administered on 09/19/19at 07:55; Start 09/04/19 at 19:15; Stop 09/20/19 at 11:45; Status DC Fentanyl Citrate (Fentanyl 2ml Vial) 50 mcg PRN Q4HRS PRN IVP SEVERE PAIN Last administered on 10/01/19at 05:15; Start 09/05/19 at 13:15; Stop 10/02/19 at 09:29; Status DC Fentanyl Citrate (Fentanyl 2ml Vial) 25 mcg PRN Q4HRS PRN IVP MODERATE PAIN Last administered on 10/01/19at 00:27; Start 09/05/19 at 13:15; Stop 10/02/19 at 09:30; Status DC Potassium Chloride 90 meq/ Magnesium Sulfate 20 meq/ Multivitamins 10 ml/Chromium/ Copper/Manganese/ Seleni/Zn 1 ml/ Insulin Human Regular 15 unit/ Total Parenteral Nutrition/Amino Acids/Dextrose/ Fat Emulsion Intravenous 1,890 ml @ 78.75 mls/ hr TPN CONT IV Last administered on 09/05/19at 22:18; Start 09/05/19 at 22:00; Stop 09/06/19 at 21:59; Status DC Furosemide (Lasix) 40 mg 1X ONCE IVP Last administered on 09/05/19at 21:51; Start 09/05/19 at 21:45; Stop 09/05/19 at 21:48; Status DC Albumin Human 100 ml @ 100 mls/hr 1X PRN PRN IV SEE COMMENTS; Start 09/06/19 at 01:30 Furosemide (Lasix) 40 mg [id number] IVP Last administered on 09/21/19at 08:04; Start 09/06/19 at 14:00; Stop 09/21/19 at 13:07; Status DC Potassium Chloride 90 meq/ Magnesium Sulfate 20 meq/ Multivitamins 10 ml/Chromium/ Copper/Manganese/ Seleni/Zn 1 ml/ Insulin Human Regular 15 unit/ Total Parenteral Nutrition/Amino Acids/Dextrose/ Fat Emulsion Intravenous 1,800 ml @ 75 mls/hr TPN CONT IV Last administered on 09/06/19at 22:31; Start 09/06/19 at 22:00; Stop 09/07/19 at 21:59; Status DC Potassium Chloride 90 meq/ Magnesium Sulfate 20 meq/ Multivitamins 10 ml/Chromium/ Copper/Manganese/ Seleni/Zn 1 ml/ Insulin Human Regular 15 unit/ Total Parenteral Nutrition/Amino Acids/Dextrose/ Fat Emulsion Intravenous 1,800 ml @ 75 mls/hr TPN CONT IV Last administered on 09/07/19at 22:28; Start 09/07/19 at 22:00; Stop 09/08/19 at 21:59; Status DC Potassium Chloride 110 meq/ Magnesium Sulfate 20 meq/ Multivitamins 10 ml/Chromium/ Copper/Manganese/ Seleni/Zn 1 ml/ Insulin Human Regular 15 unit/ Total Parenteral Nutrition/Amino Acids/Dextrose/ Fat Emulsion Intravenous 1,800 ml @ 75 mls/hr TPN CONT IV Last administered on 09/08/19at 22:01; Start 09/08/19 at 22:00; Stop 09/09/19 at 21:59; Status DC Saliva Substitute (Biotene Moisturizing Mouth) 2 spray PRN Q15MIN PRN PO DRY MOUTH; Start 09/08/19 at 11:00 Potassium Chloride 110 meq/ Magnesium Sulfate 20 meq/ Multivitamins 10 ml/Chromium/ Copper/Manganese/ Seleni/Zn 1 ml/ Insulin Human Regular 15 unit/ Total Parenteral Nutrition/Amino Acids/Dextrose/ Fat Emulsion Intravenous 1,800 ml @ 75 mls/hr TPN CONT IV Last administered on 09/09/19at 22:21; Start 09/09/19 at 22:00; Stop 09/10/19 at 21:59; Status DC Potassium Chloride 110 meq/ Magnesium Sulfate 20 meq/ Multivitamins 10 ml/Chromium/ Copper/Manganese/ Seleni/Zn 1 ml/ Insulin Human Regular 15 unit/ Total Parenteral Nutrition/Amino Acids/Dextrose/ Fat Emulsion Intravenous 1,800 ml @ 75 mls/hr TPN CONT IV Last administered on 09/10/19at 22:04; Start 09/10/19 at 22:00; Stop 09/11/19 at 21:59; Status DC Potassium Chloride 110 meq/ Magnesium Sulfate 20 meq/ Multivitamins 10 ml/Chromium/ Copper/Manganese/ Seleni/Zn 1 ml/ Insulin Human Regular 15 unit/ Total Parenteral Nutrition/Amino Acids/Dextrose/ Fat Emulsion Intravenous 1,800 ml @ 75 mls/hr TPN CONT IV Last administered on 09/11/19at 22:48; Start 09/11/19 at 22:00; Stop 09/12/19 at 21:59; Status DC Potassium Chloride 70 meq/ Magnesium Sulfate 20 meq/ Multivitamins 10 ml/Chromium/ Copper/Manganese/ Seleni/Zn 1 ml/ Insulin Human Regular 15 unit/ Total Parenteral Nutrition/Amino Acids/Dextrose/ Fat Emulsion Intravenous 1,800 ml @ 75 mls/hr TPN CONT IV Last administered on 09/12/19at 21:39; Start 09/12/19 at 22:00; Stop 09/13/19 at 21:59; Status DC Meropenem 500 mg/ Sodium Chloride 50 ml @ 100 mls/hr Q6HRS IV Last administered on 09/14/19at 06:02; Start 09/12/19 at 18:00; Stop 09/14/19 at 09:59; Status DC Barium Sulfate (Varibar Thin Liquid Apple) 148 gm 1X ONCE PO ; Start 09/13/19 at 11:45; Stop 09/13/19 at 11:49; Status DC Potassium Chloride 70 meq/ Magnesium Sulfate 20 meq/ Multivitamins 10 ml/Chromium/ Copper/Manganese/ Seleni/Zn 1 ml/ Insulin Human Regular 15 unit/ Total Parenteral Nutrition/Amino Acids/Dextrose/ Fat Emulsion Intravenous 1,800 ml @ 75 mls/hr TPN CONT IV Last administered on 09/13/19at 22:27; Start 09/13/19 at 22:00; Stop 09/14/19 at 21:59; Status DC Piperacillin Sod/ Tazobactam Sod 3.375 gm/Sodium Chloride 50 ml @ 100 mls/hr Q6HRS IV Last administered on 09/22/19at 06:10; Start 09/14/19 at 12:00; Stop 09/22/19 at 07:26; Status DC Potassium Chloride 70 meq/ Magnesium Sulfate 20 meq/ Multivitamins 10 ml/Chromium/ Copper/Manganese/ Seleni/Zn 1 ml/ Insulin Human Regular 15 unit/ Total Parenteral Nutrition/Amino Acids/Dextrose/ Fat Emulsion Intravenous 1,800 ml @ 75 mls/hr TPN CONT IV Last administered on 09/14/19at 22:03; Start 09/14/19 at 22:00; Stop 09/15/19 at 21:59; Status DC Potassium Chloride 70 meq/ Magnesium Sulfate 20 meq/ Multivitamins 10 ml/Chromium/ Copper/Manganese/ Seleni/Zn 1 ml/ Insulin Human Regular 15 unit/ Total Parenteral Nutrition/Amino Acids/Dextrose/ Fat Emulsion Intravenous 1,800 ml @ 75 mls/hr TPN CONT IV Last administered on 09/15/19at 22:33; Start 09/15/19 at 22:00; Stop 09/16/19 at 21:59; Status DC Potassium Chloride 70 meq/ Magnesium Sulfate 20 meq/ Multivitamins 10 ml/Chromium/ Copper/Manganese/ Seleni/Zn 1 ml/ Insulin Human Regular 15 unit/ Total Parenteral Nutrition/Amino Acids/Dextrose/ Fat Emulsion Intravenous 1,800 ml @ 75 mls/hr TPN CONT IV Last administered on 09/16/19at 23:13; Start 09/16/19 at 22:00; Stop 09/17/19 at 21:59; Status DC Potassium Chloride 80 meq/ Magnesium Sulfate 20 meq/ Multivitamins 10 ml/Chromium/ Copper/Manganese/ Seleni/Zn 1 ml/ Insulin Human Regular 15 unit/ Total Parenteral Nutrition/Amino Acids/Dextrose/ Fat Emulsion Intravenous 1,800 ml @ 75 mls/hr TPN CONT IV Last administered on 09/17/19at 22:30; Start 09/17/19 at 22:00; Stop 09/18/19 at 21:59; Status DC Potassium Chloride 80 meq/ Magnesium Sulfate 20 meq/ Multivitamins 10 ml/Chromium/ Copper/Manganese/ Seleni/Zn 1 ml/ Insulin Human Regular 15 unit/ Total Parenteral Nutrition/Amino Acids/Dextrose/ Fat Emulsion Intravenous 1,800 ml @ 75 mls/hr TPN CONT IV Last administered on 09/18/19at 21:54; Start 09/18/19 at 22:00; Stop 09/19/19 at 21:59; Status DC Potassium Chloride/Water 100 ml @ 100 mls/hr 1X ONCE IV Last administered on 09/19/19at 10:15; Start 09/19/19 at 10:00; Stop 09/19/19 at 10:59; Status DC Potassium Chloride 90 meq/ Magnesium Sulfate 20 meq/ Multivitamins 10 ml/ Chromium/ Copper/Manganese/ Seleni/Zn 1 ml/ Insulin Human Regular 20 unit/ Total Parenteral Nutrition/Amino Acids/Dextrose/ Fat Emulsion Intravenous 1,800 ml @ 75 mls/hr TPN CONT IV Last administered on 09/19/19at 22:28; Start 09/19/19 at 22:00; Stop 09/20/19 at 21:59; Status DC Potassium Chloride 90 meq/ Magnesium Sulfate 20 meq/ Multivitamins 10 ml/Chromium/ Copper/Manganese/ Seleni/Zn 1 ml/ Insulin Human Regular 20 unit/ Total Parenteral Nutrition/Amino Acids/Dextrose/ Fat Emulsion Intravenous 1,800 ml @ 75 mls/hr TPN CONT IV Last administered on 09/20/19at 22:08; Start 09/20/19 at 22:00; Stop 09/21/19 at 21:59; Status DC Lorazepam (Ativan Inj) 0.25 mg PRN Q4HRS PRN IVP ANXIETY / AGITATION Last administered on 10/01/19at 02:25; Start 09/21/19 at 07:30 Potassium Chloride 90 meq/ Magnesium Sulfate 20 meq/ Multivitamins 10 ml/Chromium/ Copper/Manganese/ Seleni/Zn 1 ml/ Insulin Human Regular 20 unit/ Total Parenteral Nutrition/Amino Acids/Dextrose/ Fat Emulsion Intravenous 1,800 ml @ 75 mls/hr TPN CONT IV Last administered on 09/21/19at 23:13; Start 09/21/19 at 22:00; Stop 09/22/19 at 21:59; Status DC Furosemide (Lasix) 40 mg DAILY IVP Last administered on 09/23/19at 11:14; Start 09/21/19 at 13:30; Stop 09/25/19 at 09:12; Status DC Fluoxetine HCl (PROzac) 20 mg QHS PEG Last administered on 10/08/19at 20:52; Start 09/22/19 at 21:00 Fentanyl (Duragesic 50mcg/ Hr Patch) 1 patch Q72H TD Last administered on 09/22/19at 21:22; Start 09/22/19 at 21:00; Stop 10/01/19 at 12:00; Status DC Potassium Chloride 40 meq/ Potassium Acetate 60 meq/Magnesium Sulfate 10 meq/ Multivitamins 10 ml/Chromium/ Copper/Manganese/ Seleni/Zn 1 ml/ Insulin Human Regular 20 unit/ Total Parenteral Nutrition/Amino Acids/Dextrose/ Fat Emulsion Intravenous 1,800 ml @ 75 mls/hr TPN CONT IV Last administered on 09/23/19at 00:03; Start 09/22/19 at 22:00; Stop 09/23/19 at 21:59; Status DC Potassium Acetate 80 meq/Magnesium Sulfate 5 meq/ Multivitamins 10 ml/Chromium/ Copper/Manganese/ Seleni/Zn 1 ml/ Insulin Human Regular 20 unit/ Total Parenteral Nutrition/Amino Acids/Dextrose/ Fat Emulsion Intravenous 1,920 ml @ 80 mls/hr TPN CONT IV Last administered on 09/23/19at 21:59; Start 09/23/19 at 22:00; Stop 09/24/19 at 21:59; Status DC Potassium Acetate 60 meq/Magnesium Sulfate 5 meq/ Multivitamins 10 ml/Chromium/ Copper/Manganese/ Seleni/Zn 1 ml/ Insulin Human Regular 30 unit/ Total Parenteral Nutrition/Amino Acids/Dextrose/ Fat Emulsion Intravenous 1,920 ml @ 80 mls/hr TPN CONT IV Last administered on 09/24/19at 21:54; Start 09/24/19 at 22:00; Stop 09/25/19 at 21:59; Status DC Norepinephrine Bitartrate 8 mg/ Dextrose 258 ml @ 13.332 mls/ hr CONT PRN IV PER PROTOCOL Last administered on 09/25/19at 21:46; Start 09/25/19 at 06:30 Albumin Human 500 ml @ 125 mls/hr 1X ONCE IV Last administered on 09/25/19at 08:10; Start 09/25/19 at 08:15; Stop 09/25/19 at 12:14; Status DC Potassium Acetate 40 meq/Magnesium Sulfate 5 meq/ Multivitamins 10 ml/Chromium/ Copper/Manganese/ Seleni/Zn 1 ml/ Insulin Human Regular 30 unit/ Total Parenteral Nutrition/Amino Acids/Dextrose/ Fat Emulsion Intravenous 1,920 ml @ 80 mls/hr TPN CONT IV Last administered on 09/25/19at 22:23; Start 09/25/19 at 22:00; Stop 09/26/19 at 21:59; Status DC Meropenem 1 gm/ Sodium Chloride 100 ml @ 200 mls/hr Q8HRS IV ; Start 09/25/19 at 14:00; Status Cancel Meropenem 1 gm/ Sodium Chloride 100 ml @ 200 mls/hr Q8HRS IV Last administered on 09/25/19at 11:04; Start 09/25/19 at 10:00; Stop 09/25/19 at 13:00; Status DC Meropenem 1 gm/ Sodium Chloride 100 ml @ 200 mls/hr Q12HR IV Last administered on 10/09/19at 08:51; Start 09/25/19 at 21:00 Sodium Chloride 1,000 ml @ 1,000 mls/hr 1X ONCE IV Last administered on 09/25/19at 11:06; Start 09/25/19 at 10:45; Stop 09/25/19 at 11:44; Status DC Micafungin Sodium 100 mg/Dextrose 100 ml @ 100 mls/hr Q24H IV Last administered on 10/08/19at 13:05; Start 09/25/19 at 11:00 Daptomycin 410 mg/ Sodium Chloride 50 ml @ 100 mls/hr Q24H IV Last administered on 09/27/19at 13:33; Start 09/25/19 at 14:00; Stop 09/28/19 at 08:30; Status DC Midazolam HCl (Versed) 2 mg STK-MED ONCE .ROUTE ; Start 09/25/19 at 14:47; Stop 09/25/19 at 14:48; Status DC Fentanyl Citrate (Fentanyl 2ml Vial) 100 mcg STK-MED ONCE .ROUTE ; Start 09/25/19 at 14:47; Stop 09/25/19 at 14:48; Status DC Flumazenil (Romazicon) 0.5 mg STK-MED ONCE IV ; Start 09/25/19 at 14:48; Stop at 14:48; Status DC Naloxone HCl (Narcan) 0.4 mg STK-MED ONCE .ROUTE ; Start 09/25/19 at 14:48; Stop 09/25/19 at 14:48; Status DC Lidocaine HCl (Lidocaine 1% 20ml Vial) 20 ml STK-MED ONCE .ROUTE ; Start 09/25/19 at 14:48; Stop 09/25/19 at 14:48; Status DC Midazolam HCl (Versed) 2 mg 1X ONCE IV Last administered on 09/25/19at 15:28; Start 09/25/19 at 15:00; Stop 09/25/19 at 15:01; Status DC Fentanyl Citrate (Fentanyl 2ml Vial) 100 mcg 1X ONCE IV Last administered on 09/25/19at 15:28; Start 09/25/19 at 15:00; Stop 09/25/19 at 15:01; Status DC Lidocaine HCl (Lidocaine 1% 20ml Vial) 20 ml 1X ONCE INJ Last administered on 09/25/19at 15:30; Start 09/25/19 at 15:00; Stop 09/25/19 at 15:01; Status DC Sodium Chloride 1,000 ml @ 100 mls/hr Q10H IV Last administered on 10/04/19at 07:30; Start 09/25/19 at 20:00; Stop 10/04/19 at 11:26; Status DC Sodium Bicarbonate (Sodium Bicarb Adult 8.4% Syr) 50 meq 1X ONCE IV Last administered on 09/25/19at 21:47; Start 09/25/19 at 22:00; Stop 09/25/19 at 22:01; Status DC Potassium Acetate 40 meq/Magnesium Sulfate 5 meq/ Multivitamins 10 ml/Chromium/ Copper/Manganese/ Seleni/Zn 1 ml/ Insulin Human Regular 30 unit/ Total Parenteral Nutrition/Amino Acids/Dextrose/ Fat Emulsion Intravenous 1,920 ml @ 80 mls/hr TPN CONT IV Last administered on 09/26/19at 22:28; Start 09/26/19 at 22:00; Stop 09/27/19 at 21:59; Status DC Sodium Chloride 500 ml @ 500 mls/hr 1X ONCE IV Last administered on 09/27/19at 06:39; Start 09/27/19 at 06:45; Stop 09/27/19 at 07:44; Status DC Potassium Acetate 40 meq/Magnesium Sulfate 5 meq/ Multivitamins 10 ml/Chromium/ Copper/Manganese/ Seleni/Zn 1 ml/ Insulin Human Regular 30 unit/ Total Pare nteral Nutrition/Amino Acids/Dextrose/ Fat Emulsion Intravenous 1,920 ml @ 80 mls/hr TPN CONT IV Last administered on 09/27/19at 22:03; Start 09/27/19 at 22:00; Stop 09/28/19 at 21:59; Status DC Metoprolol Tartrate (Lopressor Vial) 5 mg PRN Q6HRS PRN IVP HYPERTENSION Last administered on 10/06/19at 10:14; Start 09/28/19 at 09:00 Potassium Acetate 40 meq/Magnesium Sulfate 5 meq/ Multivitamins 10 ml/Chromium/ Copper/Manganese/ Seleni/Zn 1 ml/ Insulin Human Regular 30 unit/ Total Parenteral Nutrition/Amino Acids/Dextrose/ Fat Emulsion Intravenous 1,920 ml @ 80 mls/hr TPN CONT IV Last administered on 09/28/19at 21:26; Start 09/28/19 at 22:00; Stop 09/29/19 at 21:59; Status DC Potassium Acetate 40 meq/Magnesium Sulfate 5 meq/ Multivitamins 10 ml/Chromium/ Copper/Manganese/ Seleni/Zn 1 ml/ Insulin Human Regular 30 unit/ Total Parenteral Nutrition/Amino Acids/Dextrose/ Fat Emulsion Intravenous 1,920 ml @ 80 mls/hr TPN CONT IV Last administered on 09/29/19at 23:23; Start 09/29/19 at 22:00; Stop 09/30/19 at 21:59; Status DC Potassium Acetate 40 meq/Magnesium Sulfate 5 meq/ Multivitamins 10 ml/Chromium/ Copper/Manganese/ Seleni/Zn 1 ml/ Insulin Human Regular 30 unit/ Total Parenteral Nutrition/Amino Acids/Dextrose/ Fat Emulsion Intravenous 1,920 ml @ 80 mls/hr TPN CONT IV Last administered on 09/30/19at 21:35; Start 09/30/19 at 22:00; Stop 10/01/19 at 21:59; Status DC Furosemide (Lasix) 20 mg 1X ONCE IVP Last administered on 10/01/19at 06:26; Start 10/01/19 at 06:15; Stop 10/01/19 at 06:16; Status DC Methylprednisolone Sodium Succinate (SOLU-Medrol 125MG VIAL) 125 mg 1X ONCE IV Last administered on 10/01/19at 06:26; Start 10/01/19 at 06:15; Stop 10/01/19 at 06:16; Status DC Albuterol/ Ipratropium (Duoneb) 3 ml Q4HRS NEB Last administered on 10/09/19at 07:49; Start 10/01/19 at 08:00 Fentanyl Citrate 30 ml @ 0 mls/hr CONT PRN IV SEE PROTOCOL Last administered on 10/09/19at 01:00; Start 10/01/19 at 06:00 Propofol 100 ml @ 0 mls/hr CONT PRN IV SEE PROTOCOL Last administered on 10/08/19at 23:50; Start 10/01/19 at 06:00 Fentanyl Citrate (Fentanyl 2ml Vial) 25 mcg PRN Q1HR PRN IV SEE COMMENTS; Start 10/01/19 at 06:00 Fentanyl Citrate (Fentanyl 2ml Vial) 50 mcg PRN Q1HR PRN IV SEE COMMENTS; Start 10/01/19 at 06:00 Chlorhexidine Gluconate (Peridex) 15 ml BID MM ; Start 10/01/19 at 09:00; Stop 10/01/19 at 07:58; Status DC Potassium Acetate 40 meq/Magnesium Sulfate 5 meq/ Multivitamins 10 ml/Chromium/ Copper/Manganese/ Seleni/Zn 1 ml/ Insulin Human Regular 30 unit/ Total Parenteral Nutrition/Amino Acids/Dextrose/ Fat Emulsion Intravenous 1,920 ml @ 80 mls/hr TPN CONT IV Last administered on 10/01/19at 21:19; Start 10/01/19 at 22:00; Stop 10/02/19 at 21:59; Status DC Acetylcysteine (Mucomyst 20% Resp Treatment) 600 mg BID NEB Last administered on 10/07/19at 09:33; Start 10/01/19 at 21:00; Stop 10/07/19 at 10:39; Status DC Magnesium Sulfate 100 ml @ 25 mls/hr 1X ONCE IV Last administered on 10/01/19at 15:48; Start 10/01/19 at 15:45; Stop 10/01/19 at 19:44; Status DC Potassium Acetate 40 meq/Magnesium Sulfate 5 meq/ Multivitamins 10 ml/Chromium/ Copper/Manganese/ Seleni/Zn 1 ml/ Insulin Human Regular 30 unit/ Total Parenteral Nutrition/Amino Acids/Dextrose/ Fat Emulsion Intravenous 1,920 ml @ 80 mls/hr TPN CONT IV Last administered on 10/02/19at 21:35; Start 10/02/19 at 22:00; Stop 10/03/19 at 21:59; Status DC Potassium Chloride/Water 100 ml @ 100 mls/hr Q1H IV Last administered on 10/03/19at 08:31; Start 10/03/19 at 07:00; Stop 10/03/19 at 08:59; Status DC Potassium Acetate 40 meq/Magnesium Sulfate 5 meq/ Multivitamins 10 ml/Chromium/ Copper/Manganese/ Seleni/Zn 1 ml/ Insulin Human Regular 30 unit/ Total Parenteral Nutrition/Amino Acids/Dextrose/ Fat Emulsion Intravenous 1,920 ml @ 80 mls/hr TPN CONT IV Last administered on 10/03/19at 21:54; Start 10/03/19 at 22:00; Stop 10/04/19 at 19:34; Status DC Lidocaine HCl (Buffered Lidocaine 1%) 3 ml STK-MED ONCE .ROUTE ; Start 10/03/19 at 12:14; Stop 10/03/19 at 12:14; Status DC Lidocaine HCl (Buffered Lidocaine 1%) 3 ml 1X ONCE IJ Last administered on 10/03/19at 13:11; Start 10/03/19 at 13:00; Stop 10/03/19 at 13:01; Status DC Magnesium Sulfate 50 ml @ 25 mls/hr 1X ONCE IV ; Start 10/04/19 at 08:15; Stop 10/04/19 at 10:14; Status DC Potassium Acetate 40 meq/Magnesium Sulfate 10 meq/ Multivitamins 10 ml/Chromium/ Copper/Manganese/ Seleni/Zn 1 ml/ Insulin Human Regular 20 unit/ Total Parenteral Nutrition/Amino Acids/Dextrose/ Fat Emulsion Intravenous 1,920 ml @ 80 mls/hr TPN CONT IV Last administered on 10/04/19at 21:32; Start 10/04/19 at 22:00; Stop 10/05/19 at 21:59; Status DC Potassium Chloride/Water 100 ml @ 100 mls/hr Q1H IV Last administered on 10/05/19at 09:12; Start 10/05/19 at 08:00; Stop 10/05/19 at 09:59; Status DC Alteplase, Recombinant (Cathflo For Central Catheter Clearance) 4 mg 1X ONCE INT CAT ; Start 10/05/19 at 09:15; Stop 10/05/19 at 09:16; Status UNV Alteplase, Recombinant (Cathflo For Central Catheter Clearance) 4 mg 1X ONCE INT CAT ; Start 10/05/19 at 09:15; Stop 10/05/19 at 09:16; Status UNV Alteplase, Recombinant (Cathflo For Central Catheter Clearance) 4 mg 1X ONCE INT CAT ; Start 10/05/19 at 09:15; Stop 10/05/19 at 09:16; Status UNV Alteplase, Recombinant 4 mg/ Sodium Chloride 20 ml @ 20 mls/hr 1X ONCE IV Last administered on 10/05/19at 10:10; Start 10/05/19 at 10:00; Stop 10/05/19 at 10:59; Status DC Alteplase, Recombinant 4 mg/ Sodium Chloride 20 ml @ 20 mls/hr 1X ONCE IV Last administered on 10/05/19at 10:09; Start 10/05/19 at 10:00; Stop 10/05/19 at 10:59; Status DC Alteplase, Recombinant 4 mg/ Sodium Chloride 20 ml @ 20 mls/hr 1X ONCE IV Last administered on 10/05/19at 10:09; Start 10/05/19 at 10:00; Stop 10/05/19 at 10:59; Status DC Potassium Acetate 60 meq/Magnesium Sulfate 10 meq/ Multivitamins 10 ml/Chromium/ Copper/Manganese/ Seleni/Zn 1 ml/ Insulin Human Regular 20 unit/ Total Parenteral Nutrition/Amino Acids/Dextrose/ Fat Emulsion Intravenous 1,920 ml @ 80 mls/hr TPN CONT IV Last administered on 10/05/19at 21:55; Start 10/05/19 at 22:00; Stop 10/06/19 at 21:59; Status DC Albumin Human 500 ml @ 125 mls/hr 1X ONCE IV Last administered on 10/06/19at 12:01; Start 10/06/19 at 11:15; Stop 10/06/19 at 15:14; Status DC Sodium Chloride 500 ml @ 500 mls/hr 1X ONCE IV Last administered on 10/06/19at 13:50; Start 10/06/19 at 11:15; Stop 10/06/19 at 12:14; Status DC Potassium Acetate 60 meq/Magnesium Sulfate 14 meq/ Multivitamins 10 ml/Chromium/ Copper/Manganese/ Seleni/Zn 1 ml/ Insulin Human Regular 20 unit/ Total Parenteral Nutrition/Amino Acids/Dextrose/ Fat Emulsion Intravenous 1,920 ml @ 80 mls/hr TPN CONT IV Last administered on 10/06/19at 22:26; Start 10/06/19 at 22:00; Stop 10/07/19 at 21:59; Status DC Ciprofloxacin/ Dextrose 200 ml @ 200 mls/hr Q12HR IV Last administered on 10/09/19at 08:50; Start 10/06/19 at 21:00 Albumin Human 250 ml @ 62.5 mls/hr 1X ONCE IV Last administered on 10/07/19at 11:09; Start 10/07/19 at 11:00; Stop 10/07/19 at 14:59; Status DC Furosemide (Lasix) 20 mg 1X ONCE IVP Last administered on 10/07/19at 14:52; Start 10/07/19 at 10:45; Stop 10/07/19 at 10:49; Status DC Potassium Acetate 60 meq/Magnesium Sulfate 14 meq/ Multivitamins 10 ml/Chromium/ Copper/Manganese/ Seleni/Zn 1 ml/ Insulin Human Regular 15 unit/ Total Parenteral Nutrition/Amino Acids/Dextrose/ Fat Emulsion Intravenous 1,920 ml @ 80 mls/hr TPN CONT IV Last administered on 10/07/19at 22:08; Start 10/07/19 at 22:00; Stop 10/08/19 at 21:59; Status DC Potassium Acetate 60 meq/Magnesium Sulfate 14 meq/ Multivitamins 10 ml/Chromium/ Copper/Manganese/ Seleni/Zn 1 ml/ Insulin Human Regular 15 unit/ Total Parenteral Nutrition/Amino Acids/Dextrose/ Fat Emulsion Intravenous 1,920 ml @ 80 mls/hr TPN CONT IV Last administered on 10/08/19at 22:12; Start 10/08/19 at 22:00; Stop 10/09/19 at 21:59 Potassium Acetate 60 meq/Magnesium Sulfate 14 meq/ Multivitamins 10 ml/Chromium/ Copper/Manganese/ Seleni/Zn 1 ml/ Insulin Human Regular 15 unit/ Total Parenteral Nutrition/Amino Acids/Dextrose/ Fat Emulsion Intravenous 1,920 ml @ 80 mls/hr TPN CONT IV ; Start 10/09/19 at 22:00; Stop 10/10/19 at 21:59 Active Scripts Active Reported Bisoprolol Fumarate 5 Mg Tablet 10 Mg PO DAILY Vitals/I & O Vital Sign - Last 24 Hours 10/08/19 10/08/19 10/08/19 10/08/19 12:00 12:00 12:34 14:00 Temp 98.9 98.9 Pulse 116 114 Resp 22 22 B/P (MAP) 141/9 (53) 104/58 (73) Pulse Ox 99 99 99 O2 Delivery Tracheal Collar Mechanical Ventilator Tracheal Collar Tracheal Collar O2 Flow Rate 9.0 10/08/19 10/08/19 10/08/19 10/08/19 14:27 14:42 16:00 16:00 Temp 97.9 98.0 97.9 97.9 98.0 97.9 Pulse 113 114 110 Resp 20 20 22 B/P (MAP) 109/65 104/58 113/75 (88) Pulse Ox 99 O2 Delivery Tracheal Collar Trach Collar 10/08/19 10/08/19 10/08/19 10/08/19 16:30 18:00 19:00 20:00 Temp 98.5 98.2 98.5 98.2 Pulse 110 116 116 108 Resp 22 20 17 16 B/P (MAP) 113/75 107/68 (81) 107/65 (79) 98/50 (66) Pulse Ox 99 99 98 O2 Delivery Tracheal Collar Tracheal Collar Tracheal Collar 10/08/19 10/08/19 10/08/19 10/08/19 20:00 21:00 22:00 23:00 Temp 98.1 98.1 Pulse 112 114 118 Resp 27 27 B/P (MAP) 113/75 (88) 118/78 (91) 116/81 (93) Pulse Ox 97 97 96 O2 Delivery Trach Collar Tracheal Collar Tracheal Collar Tracheal Collar 10/08/19 10/09/19 10/09/19 10/09/19 23:47 00:00 00:10 01:00 Pulse 108 Resp 27 16 B/P (MAP) 99/61 (74) Pulse Ox 98 99 98 O2 Delivery Ventilator Ventilator Mechanical Ventilator 10/09/19 10/09/19 10/09/19 10/09/19 01:00 02:00 03:00 04:00 Temp 100.3 100.3 Pulse 100 106 102 98 Resp 27 27 27 22 B/P (MAP) 96/78 (84) 91/48 (62) 87/63 (71) 95/57 (70) Pulse Ox 99 100 100 100 O2 Delivery Ventilator Ventilator Ventilator Ventilator 10/09/19 10/09/19 10/09/19 10/09/19 04:15 04:19 05:00 06:00 Pulse 108 110 Resp 19 20 B/P (MAP) 95/45 (62) 93/50 (64) Pulse Ox 98 97 99 O2 Delivery Mechanical Ventilator Ventilator Ventilator Ventilator 10/09/19 10/09/19 10/09/19 10/09/19 08:00 08:00 08:02 10:00 Temp 100.1 100.1 Pulse 114 121 Resp 20 21 B/P (MAP) 138/68 (91) 102/51 (68) Pulse Ox 99 96 98 O2 Delivery Mechanical Ventilator Ventilator Tracheal Collar Ventilator O2 Flow Rate 5.0 Intake and Output 10/08/19 10/08/19 10/09/19 15:00 23:00 07:00 Intake Total 408.5 ml 1561 ml 925 ml Output Total 750 ml 1428 ml 530 ml Balance -341.5 ml 133 ml 395 ml Hemodynamically unstable?: No Is patient in severe pain?: No Is NPO status required?: No CARIN FERNANDEZ MD Oct 09, 2019 11:12
[2019-10-09] MEDS: TPN PER PHARMACY MC PRN (11:19)
--- NOTE | 2019-10-09 11:20 | NUR ---
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, 8 inches Weight: 91.0 kg Current diet: NPO LABS: Sodium: 136 Potassium: 4.0 Chloride: 102 Calcium: 9.8 Corrected Calcium: 12.20 Magnesium: 1.9 CO2: 29 SCr: 0.6 Glucose: 134 Albumin: 1.0 AST: 17 ALT: 18 TPN FORMULA: TPN TYPE: Central Continuous AMINO ACIDS: 80 gm DEXTROSE: 250 gm LIPIDS: 20 gm SODIUM CHLORIDE: - mEq SODIUM ACETATE: - mEq SODIUM PHOSPHATE: - mmol POTASSIUM CHLORIDE: - mEq POTASSIUM ACETATE: 60 mEq POTASSIUM PHOSPHATE: - mmol MAGNESIUM: 14 mEq CALCIUM: - mEq INSULIN: 15 units MULTIPLE VITAMIN: 10 ml TRACE ELEMENTS: 1 ml(s) TPN PLAN: Labs stable. Calcium increasing; no calcium in TPN. No change to formula. No labs tomorrow due to stability. Trig thursday. R: Continue TPN ABOVE. Will monitor electrolytes, glucose, and tolerance to TPN. CHRISTIAN VALLEJO [facility], 10/09/19 112
--- NOTE | 2019-10-09 11:26 | PDOC ---
SURGICAL PROGRESS NOTE Subjective wakens makes eye contact answers questions appropriately adequate pain control Vital Signs Vital Signs Date Time Temp Pulse Resp B/P (MAP) Pulse Ox O2 Delivery O2 Flow Rate FiO2 10/09/19 10:00 121 21 102/51 (68) 98 Ventilator 10/09/19 08:02 5.0 10/09/19 08:00 100.1 100.1 I&O Intake and Output 10/09/19 07:00 Intake Total 2894.5 ml Output Total 2708 ml Balance 186.5 ml IV Total 2594.5 ml Blood Product 300 ml Output Urine Total 2135 ml Chest Tube Drainage Total 210 ml Drainage Total 13 ml Other 350 ml PATIENT HAS A ROSARIO: Yes General: Alert Abdomen: Soft, Other (mildly TTP) Labs Laboratory Tests Test 10/07/19 12:25 10/07/19 14:43 10/07/19 23:40 10/08/19 05:50 Glucose (Fingerstick) 185 mg/dL (70-99) 147 mg/dL (70-99) Ionized Calcium 1.50 mmol/L (1.13-1.32) Iron Level 8 ug/dL (50-170) Total Iron Binding Capacity 56 ug/dL (250-450) Iron Saturation 14 % (15-34) White Blood Count 7.7 x10^3/uL (4.0-11.0) Red Blood Count 2.76 x10^6/uL (3.50-5.40) Hemoglobin 7.8 g/dL (12.0-15.5) Hematocrit 23.6 % (36.0-47.0) Mean Corpuscular Volume 85 fL (79-100) Mean Corpuscular Hemoglobin 28 pg (25-35) Mean Corpuscular Hemoglobin Concent 33 g/dL (31-37) Red Cell Distribution Width 18.2 % (11.5-14.5) Platelet Count 479 x10^3/uL (140-400) Neutrophils (%) (Auto) 74 % (31-73) Lymphocytes (%) (Auto) 16 % (24-48) Monocytes (%) (Auto) 9 % (0-9) Eosinophils (%) (Auto) 2 % (0-3) Basophils (%) (Auto) 0 % (0-3) Neutrophils # (Auto) 5.6 x10^3/uL (1.8-7.7) Lymphocytes # (Auto) 1.2 x10^3/uL (1.0-4.8) Monocytes # (Auto) 0.7 x10^3/uL (0.0-1.1) Eosinophils # (Auto) 0.1 x10^3/uL (0.0-0.7) Basophils # (Auto) 0.0 x10^3/uL (0.0-0.2) Sodium Level 137 mmol/L (136-145) Potassium Level 3.8 mmol/L (3.5-5.1) Chloride Level 103 mmol/L (98-107) Carbon Dioxide Level 28 mmol/L (21-32) Anion Gap 6 (6-14) Blood Urea Nitrogen 17 mg/dL (7-20) Creatinine 0.6 mg/dL (0.6-1.0) Estimated GFR (Cockcroft-Gault) 106.3 BUN/Creatinine Ratio 28 (6-20) Glucose Level 134 mg/dL (70-99) Calcium Level 9.4 mg/dL (8.5-10.1) Total Bilirubin 0.4 mg/dL (0.2-1.0) Aspartate Amino Transf (AST/SGOT) 17 U/L (15-37) Alanine Aminotransferase (ALT/SGPT) 18 U/L (14-59) Alkaline Phosphatase 101 U/L (46-116) Total Protein 4.4 g/dL (6.4-8.2) Albumin 1.1 g/dL (3.4-5.0) Albumin/Globulin Ratio 0.3 (1.0-1.7) Test 10/08/19 05:55 10/08/19 13:03 10/08/19 23:59 10/09/19 05:15 Glucose (Fingerstick) 131 mg/dL (70-99) 170 mg/dL (70-99) 132 mg/dL (70-99) White Blood Count 10.3 x10^3/uL (4.0-11.0) Red Blood Count 3.10 x10^6/uL (3.50-5.40) Hemoglobin 9.0 g/dL (12.0-15.5) Hematocrit 26.3 % (36.0-47.0) Mean Corpuscular Volume 85 fL (79-100) Mean Corpuscular Hemoglobin 29 pg (25-35) Mean Corpuscular Hemoglobin Concent 34 g/dL (31-37) Red Cell Distribution Width 17.4 % (11.5-14.5) Platelet Count 448 x10^3/uL (140-400) Neutrophils (%) (Auto) 74 % (31-73) Lymphocytes (%) (Auto) 17 % (24-48) Monocytes (%) (Auto) 7 % (0-9) Eosinophils (%) (Auto) 1 % (0-3) Basophils (%) (Auto) 0 % (0-3) Neutrophils # (Auto) 7.7 x10^3/uL (1.8-7.7) Lymphocytes # (Auto) 1.8 x10^3/uL (1.0-4.8) Monocytes # (Auto) 0.8 x10^3/uL (0.0-1.1) Eosinophils # (Auto) 0.1 x10^3/uL (0.0-0.7) Basophils # (Auto) 0.0 x10^3/uL (0.0-0.2) Sodium Level 136 mmol/L (136-145) Potassium Level 4.0 mmol/L (3.5-5.1) Chloride Level 102 mmol/L (98-107) Carbon Dioxide Level 29 mmol/L (21-32) Anion Gap 5 (6-14) Blood Urea Nitrogen 15 mg/dL (7-20) Creatinine 0.6 mg/dL (0.6-1.0) Estimated GFR (Cockcroft-Gault) 106.3 BUN/Creatinine Ratio 25 (6-20) Glucose Level 133 mg/dL (70-99) Calcium Level 9.8 mg/dL (8.5-10.1) Total Bilirubin 0.4 mg/dL (0.2-1.0) Aspartate Amino Transf (AST/SGOT) 19 U/L (15-37) Alanine Aminotransferase (ALT/SGPT) 15 U/L (14-59) Alkaline Phosphatase 113 U/L (46-116) Total Protein 4.3 g/dL (6.4-8.2) Albumin 1.0 g/dL (3.4-5.0) Albumin/Globulin Ratio 0.3 (1.0-1.7) Laboratory Tests Test 10/08/19 13:03 10/08/19 23:59 10/09/19 05:15 Glucose (Fingerstick) 170 mg/dL (70-99) 132 mg/dL (70-99) White Blood Count 10.3 x10^3/uL (4.0-11.0) Red Blood Count 3.10 x10^6/uL (3.50-5.40) Hemoglobin 9.0 g/dL (12.0-15.5) Hematocrit 26.3 % (36.0-47.0) Mean Corpuscular Volume 85 fL (79-100) Mean Corpuscular Hemoglobin 29 pg (25-35) Mean Corpuscular Hemoglobin Concent 34 g/dL (31-37) Red Cell Distribution Width 17.4 % (11.5-14.5) Platelet Count 448 x10^3/uL (140-400) Neutrophils (%) (Auto) 74 % (31-73) Lymphocytes (%) (Auto) 17 % (24-48) Monocytes (%) (Auto) 7 % (0-9) Eosinophils (%) (Auto) 1 % (0-3) Basophils (%) (Auto) 0 % (0-3) Neutrophils # (Auto) 7.7 x10^3/uL (1.8-7.7) Lymphocytes # (Auto) 1.8 x10^3/uL (1.0-4.8) Monocytes # (Auto) 0.8 x10^3/uL (0.0-1.1) Eosinophils # (Auto) 0.1 x10^3/uL (0.0-0.7) Basophils # (Auto) 0.0 x10^3/uL (0.0-0.2) Sodium Level 136 mmol/L (136-145) Potassium Level 4.0 mmol/L (3.5-5.1) Chloride Level 102 mmol/L (98-107) Carbon Dioxide Level 29 mmol/L (21-32) Anion Gap 5 (6-14) Blood Urea Nitrogen 15 mg/dL (7-20) Creatinine 0.6 mg/dL (0.6-1.0) Estimated GFR (Cockcroft-Gault) 106.3 BUN/Creatinine Ratio 25 (6-20) Glucose Level 133 mg/dL (70-99) Calcium Level 9.8 mg/dL (8.5-10.1) Total Bilirubin 0.4 mg/dL (0.2-1.0) Aspartate Amino Transf (AST/SGOT) 19 U/L (15-37) Alanine Aminotransferase (ALT/SGPT) 15 U/L (14-59) Alkaline Phosphatase 113 U/L (46-116) Total Protein 4.3 g/dL (6.4-8.2) Albumin 1.0 g/dL (3.4-5.0) Albumin/Globulin Ratio 0.3 (1.0-1.7) Problem List Problems Medical Problems: (1) Acute pancreatitis Status: Acute (2) Cholelithiasis Status: Acute Assessment/Plan pancreatitis continue supportive care Justicifation of Admission Dx: Justifications for Admission: Justification of Admission Dx: Yes MARV WYNNE MD Oct 09, 2019 11:26
--- NOTE | 2019-10-09 11:28 | NUR ---
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, 8 inches Weight: 91.0 kg Current diet: NPO LABS: Sodium: 136 Potassium: 4.0 Chloride: 102 Calcium: 9.8 Corrected Calcium: 12.20 Magnesium: 1.9 CO2: 29 SCr: 0.6 Glucose: 134 Albumin: 1.0 AST: 17 ALT: 18 TPN FORMULA: TPN TYPE: Central Continuous AMINO ACIDS: 80 gm DEXTROSE: 250 gm LIPIDS: 20 gm SODIUM CHLORIDE: - mEq SODIUM ACETATE: - mEq SODIUM PHOSPHATE: - mmol POTASSIUM CHLORIDE: - mEq POTASSIUM ACETATE: 60 mEq POTASSIUM PHOSPHATE: - mmol MAGNESIUM: 14 mEq CALCIUM: - mEq INSULIN: 15 units MULTIPLE VITAMIN: 10 ml TRACE ELEMENTS: 1 ml(s) TPN PLAN: Labs stable. Calcium increasing; no calcium in TPN. No change to formula. No labs tomorrow due to stability. Trig thursday. R: Continue TPN ABOVE. Will monitor electrolytes, glucose, and tolerance to TPN. CHRISTIAN VALLEJO [facility], 10/09/19 1128
[2019-10-09] MEDS: MICAFUNGIN 100 MG in IV DEXTROSE 5% 100ML 100 ML IV SCH (11:45)
--- NOTE | 2019-10-09 13:13 | PDOC ---
PROGRESS NOTES Subjective Subjective Awake, no distress. Patient on trach shield and vent on and off per pulmonary team Objective Objective Vital Signs Date Time Temp Pulse Resp B/P (MAP) Pulse Ox O2 Delivery O2 Flow Rate FiO2 10/09/19 12:03 96 5.0 10/09/19 11:31 Tracheal Collar 10/09/19 10:00 121 21 102/51 (68) 10/09/19 08:00 100.1 100.1 Intake and Output 10/09/19 07:00 Intake Total 2894.5 ml Output Total 2708 ml Balance 186.5 ml IV Total 2594.5 ml Blood Product 300 ml Output Urine Total 2135 ml Chest Tube Drainage Total 210 ml Drainage Total 13 ml Other 350 ml Physical Exam Abdomen: Soft, Other (mildly TTP) Heart: Regular rate (SR/ST), Other (distant heart sounds) Extremities: No cyanosis, Other (3+ bilateral LE pitting edema) General: Alert HEENT: Other (s/p tracheostomy) Lungs: Other (diminished bases, trach with trach shield, chest tube in place with serous fluid) Neuro: Other (nonverbal due to trach) Psych/Mental Status: Other (flat affect) Skin: No rashes, No significant lesion Diagnosis RENAL FAILURE: Acute (Acute tubular necrosis) Assessment Assessment 1. Severe acute gallstone pancreatitis with necrosis: Treat per GS team 2. Acute respiratory failure: presently has trach and chest tube. CT drainage 210 cc/24 hrs. Pulmonary team following 3. Anasarca with severe protein malnutrition 4. Sepsis with MDRO: off pressors. BP low marginal but stable 5. Acute diastolic CHF: multifactorial, better compensated 6. Normocytic anemia: s/p transfusions 7. Sinus tachycardia: Most probably physiologic 8. Severe JUANA requiring HD: last dialysis about a month ago Plan Plan of Care Problems Medical Problems: (1) Acute pancreatitis Status: Acute (2) Cholelithiasis Status: Acute Comment Review of Relevant I have reviewed the following items kolby (where applicable) has been applied. Labs Laboratory Tests Test 10/08/19 23:59 10/09/19 05:15 10/09/19 11:51 Glucose (Fingerstick) 132 mg/dL (70-99) 171 mg/dL (70-99) White Blood Count 10.3 x10^3/uL (4.0-11.0) Red Blood Count 3.10 x10^6/uL (3.50-5.40) Hemoglobin 9.0 g/dL (12.0-15.5) Hematocrit 26.3 % (36.0-47.0) Mean Corpuscular Volume 85 fL (79-100) Mean Corpuscular Hemoglobin 29 pg (25-35) Mean Corpuscular Hemoglobin Concent 34 g/dL (31-37) Red Cell Distribution Width 17.4 % (11.5-14.5) Platelet Count 448 x10^3/uL (140-400) Neutrophils (%) (Auto) 74 % (31-73) Lymphocytes (%) (Auto) 17 % (24-48) Monocytes (%) (Auto) 7 % (0-9) Eosinophils (%) (Auto) 1 % (0-3) Basophils (%) (Auto) 0 % (0-3) Neutrophils # (Auto) 7.7 x10^3/uL (1.8-7.7) Lymphocytes # (Auto) 1.8 x10^3/uL (1.0-4.8) Monocytes # (Auto) 0.8 x10^3/uL (0.0-1.1) Eosinophils # (Auto) 0.1 x10^3/uL (0.0-0.7) Basophils # (Auto) 0.0 x10^3/uL (0.0-0.2) Sodium Level 136 mmol/L (136-145) Potassium Level 4.0 mmol/L (3.5-5.1) Chloride Level 102 mmol/L (98-107) Carbon Dioxide Level 29 mmol/L (21-32) Anion Gap 5 (6-14) Blood Urea Nitrogen 15 mg/dL (7-20) Creatinine 0.6 mg/dL (0.6-1.0) Estimated GFR (Cockcroft-Gault) 106.3 BUN/Creatinine Ratio 25 (6-20) Glucose Level 133 mg/dL (70-99) Calcium Level 9.8 mg/dL (8.5-10.1) Total Bilirubin 0.4 mg/dL (0.2-1.0) Aspartate Amino Transf (AST/SGOT) 19 U/L (15-37) Alanine Aminotransferase (ALT/SGPT) 15 U/L (14-59) Alkaline Phosphatase 113 U/L (46-116) Total Protein 4.3 g/dL (6.4-8.2) Albumin 1.0 g/dL (3.4-5.0) Albumin/Globulin Ratio 0.3 (1.0-1.7) Microbiology 10/06/19 Blood Culture - Preliminary, Resulted NO GROWTH AFTER 2 DAYS 10/03/19 Gram Stain - Final, Complete 10/03/19 Aerobic and Anaerobic Culture - Final, Complete 10/01/19 Gram Stain Evaluation - Final, Complete 10/01/19 Respiratory Culture - Final, Complete 10/01/19 Antimicrobic Susceptibility - Final, Complete 09/25/19 Urine Culture - Final, Complete 09/17/19 Gram Stain - Final, Complete 09/17/19 Aerobic Culture - Final, Complete Medications Current Medications Potassium Acetate 60 meq/Magnesium Sulfate 14 meq/ Multivitamins 10 ml/Chromium/ Copper/Manganese/ Seleni/Zn 1 ml/ Insulin Human Regular 15 unit/ Total Parenteral Nutrition/Amino Acids/Dextrose/ Fat Emulsion Intravenous 1,920 ml @ 80 mls/hr TPN CONT IV Last administered on 10/08/19at 22:12; Start 10/08/19 at 22:00; Stop 10/09/19 at 21:59 Potassium Acetate 60 meq/Magnesium Sulfate 14 meq/ Multivitamins 10 ml/Chromium/ Copper/Manganese/ Seleni/Zn 1 ml/ Insulin Human Regular 15 unit/ Total Parenteral Nutrition/Amino Acids/Dextrose/ Fat Emulsion Intravenous 1,920 ml @ 80 mls/hr TPN CONT IV ; Start 10/09/19 at 22:00; Stop 10/10/19 at 21:59 Vitals/I & O Vital Sign - Last 24 Hours 10/08/19 10/08/19 10/08/19 10/08/19 14:00 14:27 14:42 16:00 Temp 97.9 98.0 97.9 97.9 98.0 97.9 Pulse 114 113 114 110 Resp B/P (MAP) 104/58 (73) 109/65 104/58 113/75 (88) Pulse Ox 99 99 O2 Delivery Tracheal Collar Tracheal Collar 10/08/19 10/08/19 10/08/19 10/08/19 16:00 16:30 18:00 19:00 Temp 98.5 98.5 Pulse 110 116 116 Resp 22 20 17 B/P (MAP) 113/75 107/68 (81) 107/65 (79) Pulse Ox 99 99 O2 Delivery Trach Collar Tracheal Collar Tracheal Collar 10/08/19 10/08/19 10/08/19 10/08/19 20:00 20:00 21:00 22:00 Temp 98.2 98.2 Pulse 108 112 114 Resp 27 B/P (MAP) 98/50 (66) 113/75 (88) 118/78 (91) Pulse Ox 98 97 97 O2 Delivery Tracheal Collar Trach Collar Tracheal Collar Tracheal Collar 10/08/19 10/08/19 10/09/19 10/09/19 23:00 23:47 00:00 00:10 Temp 98.1 98.1 Pulse 118 108 Resp B/P (MAP) 116/81 (93) 99/61 (74) Pulse Ox 96 98 99 O2 Delivery Tracheal Collar Ventilator Ventilator Mechanical Ventilator 10/09/19 10/09/19 10/09/19 10/09/19 01:00 01:00 02:00 03:00 Pulse 100 106 102 Resp 27 B/P (MAP) 96/78 (84) 91/48 (62) 87/63 (71) Pulse Ox 98 99 100 100 O2 Delivery Ventilator Ventilator Ventilator 10/09/19 10/09/19 10/09/19 10/09/19 04:00 04:15 04:19 05:00 Temp 100.3 100.3 Pulse 98 108 Resp 19 B/P (MAP) 95/57 (70) 95/45 (62) Pulse Ox 100 98 97 O2 Delivery Ventilator Mechanical Ventilator Ventilator Ventilator 10/09/19 10/09/19 10/09/19 10/09/19 06:00 08:00 08:00 08:02 Temp 100.1 100.1 Pulse 110 114 Resp 20 20 B/P (MAP) 93/50 (64) 138/68 (91) Pulse Ox 99 99 96 O2 Delivery Ventilator Mechanical Ventilator Ventilator Tracheal Collar O2 Flow Rate 5.0 10/09/19 10/09/19 10/09/19 10:00 11:31 12:03 Pulse 121 Resp 21 B/P (MAP) 102/51 (68) Pulse Ox 98 96 96 O2 Delivery Ventilator Tracheal Collar O2 Flow Rate 5.0 5.0 Intake and Output 10/08/19 10/08/19 10/09/19 15:00 23:00 07:00 Intake Total 408.5 ml 1561 ml 925 ml Output Total 750 ml 1428 ml 530 ml Balance -341.5 ml 133 ml 395 ml JUANITA GARCIA MD Oct 09, 2019 13:13
[2019-10-09] MEDS ORDERED: TOTAL PARENTERAL NUTRITION IV SCH ×8 (22:00)
[2019-10-09] MEDS ORDERED: AMINO ACID IV SCH ×8 (22:00)
[2019-10-09] MEDS ORDERED: DEXTROSE 70% IV SCH ×8 (22:00)
[2019-10-09] MEDS ORDERED: [UNRECOGNIZED DRUG - OTHER] IV SCH ×8 (22:00)
[2019-10-10] VITALS (24 sets, daily range): BP systolic 83–137; BP diastolic 58–87
[2019-10-10] MEDS: IPRATRPIUM/ALBUTEROL 0.5/2.5MG 3 ML NEBU. NEB SCH ×6 (03:23→23:37)
[2019-10-10] MEDS: INSULIN LISPRO 300 UNITS/3 ML VIAL. SQ SCH ×4 (07:51→17:18)
[2019-10-10] MEDS: PANTOPRAZOLE IV PUSH 40 MG VIAL. IVP SCH (08:55)
[2019-10-10] MEDS: MEROPENEM 1 GM in IV NORMAL SALINE 100ML 100 ML IV SCH ×2 (08:55→21:43)
[2019-10-10] MEDS: CIPROFLOXACIN 400MG PREMIX 200 ML IV SCH ×2 (08:56→21:43)
--- NOTE | 2019-10-10 09:08 | NUR ---
RT placed Passy-Marion valve on patient, within 15 seconds patient's SPO2 was in the 80s and patient began to have frequent PACs with a rate in the 90s instead of 110s. Patient lasted 2 minutes then was switched back to trach shield at 33%.
--- NOTE | 2019-10-10 09:23 | RAD ---
Single AP view of the chest. Comparison: 10/06/2019. Indication: Follow-up effusions Findings: Tracheostomy tube nasogastric tube and left-sided PICC line are identified. The heart is enlarged but stable.. No pneumothorax. Left basilar chest tube is reidentified. No significant effusion is seen on the left side. There does appear to be increasing effusion on the right side with new atelectasis and effusion identified. Breast Impression: 1. Chest tube is seen in the left pleural base with no significant left-sided effusion. There does appear to be an increasing right-sided effusion with compressive atelectasis. Electronically signed by: Julio Farfan MD (10/10/2019 9:20 AM) [id number]
--- NOTE | 2019-10-10 09:52 | PDOC ---
PROGRESS NOTES Chief Complaint Chief Complaint impression History of Present Illness 48yo F w/ PMHx HTN, prediabetes who presented the emergency room complaints of abdominal pain. Patient described off and on 3 days. She states is constant, described as a squeezing sensation in a band-like distribution. + nausea, vomiting. She denies any fever or diarrhea. Patient denies any abdominal surgical procedures. She stateed is worse with movements, car ride. Pain initially was upper abdomen however now pretty much generalized. Last bowel movement was 07/03/2019. Nothing makes her pain better. Patient denies any shortness of breath. She does state the pain moves into her chest. Denies any headache or visual changes. Lipase 42229, AST 401, ALT 249, Bilirubin 1.4. CT abdomen confirms pancreatic inflammation, peripancreatic fluid and inflammatory changes around the pancreas consistent with pancreatitis. Cholelithiasis and 1.4cm uterine fibroid as well as possible left salpingitis. Admitted for further care Gallstone pancreatitis with necrosis. -CT A/P 09/23 showed multiple pseudocysts, slight larger on the right. s/p drains x , 09/24. + PSAE (MDRO-R Cefepime, Zosyn ALEXANDRA < 64) and yeast, -s/p drain 08/14. C. parapsilosis. s/p drain 08/23 + yeast & high amylase; s/p additional drain on 08/25. Drains removed. Ascites s/p paracentesis 08/02 & 08/23. C. parapsilosis JUANA. off HD. impression Acute hypoxic Respiratory failure required mechanical ventilation Tracheostomy bilateral pleural effusions/pulm edema s/p Throacentesis on 10/03/2019 Severe Acute gallstone pancreatitis (not a surgical candidate at this time) with necrosis Acute kidney failure now requiring dialysis Gallstones (Calculus of gallbladder with acute cholecystitis without obstruction) HTN Intractable pain Intractable nausea Covid 19 negative. Acute on chronic anemia EEG: No seizure activityFever - better currently - intermittent could be from underlying pancreatitis blood cults 08/21 - neg so far ? Ileus with vomiting Abd distention - U/S and CT reviewed s/p 0.4 L of opaque, debris-containing ascites was removed 08/23 Acute pancreatitis with persistent necrosis Gallstone pancreatitis with necrosis. -CT A/P 09/23 showed multiple pseudocysts, slight larger on the right. s/p drains x 3, 09/24. + PSAE (MDRO-R Cefepime, Zosyn ALEXANDRA < 64) and yeast, -s/p drain 08/14. C. parapsilosis. s/p drain 08/23 + yeast & high amylase; s/p additional drain on 08/25. Drains removed. Ascites s/p paracentesis 08/02 & 08/23. C. parapsilosis JUANA. off HD. A large fluid collection in the pancreatic bed has slightly decreased in size, described below, the pancreas itself is difficult to visualize, which could be due to necrosis or obscuration of pancreatic parenchyma from the surrounding fluid collection.10/02 - 08/14 status post KAYLIN drain placement + C paropsilosis. s/p additional drains 08/25 Anemia - S/p PRBCs Cholelithiasis with thickening of the gallbladder wall. Leucocytosis improving JUANA, hyperkalemia, Metabolic acidosis off dialysis hypocalcemia Prediabetes HTN s/p trach ESRD on HD Hyperglycemia severe protein-caloric malnutrition Moderate to large left pleural effusion with atelectasis and collapse of most of the left lower lobe, stable 10/05 FEVER 101, BLOOD CULTURE X 2 10/06 iv cipro added 10/07 vent fio2 35% FEN - PPX - SCDs, off lovenox currently, high risk for thrombosis but in light of her recent anemia and need for transfusion the risks do not outweigh benefits at this time. will continue to evaluate on a daily basis FULL CODE Dispo - ICU, critically ill BACK ON VENT 10/04 vent // no distress iv albumin 10/06 Continue meropenem, has MDRO PSAE September 24 Continue micafungin September 24 33 MIN CC TIME History of Present Illness History of Present Illness 09/25: IR placed drain on 09/24. 4u PRBC after Hb drop. Hb 8.8 today. Off Levophed this morning. T-max 100.3. Much more lethargic today. CXR with left sided diffus e infiltrates. 09/26: Tachycardic overnight into the 140s. NGT clamped. On BIPAP currently. Drains with serosanguinous discharge. WBC 8, Tmax 99.6F. 09/27: Seen on trach shield in ICU. Hypertensive and tachycardic. Labs stable. blood stained drainage from drains. Afebrile. 09/28: Seen on trach shield in ICU. She is a bit confused, drowsy, but when sitting up is conversational and confusion somewhat clears. She is asking for more pain medication. Stable drains, still very tachy.Na 147 09/29: Patient vomited overnight. Aspirated. Tried to pull her trach out, she was told she would without her trach, she said "I know, I just want to go home". Hb 7.6. Afebrile, still very tachycardic. 1055ml out of right sided KAYLIN drain 09/30: Overnight hypoxic, on BIPAP. CXR with left sided white out lung. Significant mucous plug suctioned by RT with improvement in her ABG after 2 hours this morning. Not really active, tired, lethargic. 890ml out of drains past 24 hours. On vent. D/w daughter bedside. 10/01: Still on vent overnight with copious pulmonary drainage on suctioning. Labs stable, UOP stable 1L. Drain output still significant with 1505mL. She has shown her phone password [id number] and made it clear she does not want her daughters to access her phone at this time. 6:15: Patient quite frail, she has had such a lengthy hospital stay that she is certainly depressed and as documented 3 days ago is wanting to go home. Most likely patient is also tired of being hospitalized with an end point no where in sight. Reassurance and encouragement provided during my visit. Plans for thoracentesis later in the day 10/03: No acute events reported overnight, case discussed with nursing staff patient in no acute distress, complaints of the abdomimal pain during my visit, patient is quite depressed, reassurance has been provided, discussed with nursing staff at bedside, replace electrolytes 10/04 off vent / on TS , no distress 10/07 Patient seen and examined ICU BED critically ill guardedlong-term prognosis Sputum from 09/30 - growing PSA - may be colonization I to Meropenem add Cipro Continue meropenem, has MDRP PSAE September 24 from abd cont micafungin September 24 bleeding from Sx. site RLQ and firmness) max 1003 oncology consulted 37 MIN CC TIME Date: Aug 15, 2019 Pre-Op Diagnosis: Necrotizing pancreatitis Post-Op Diagnosis: same Procedure Performed: laparoscopic exploration Surgeon: Renzo Servin Asst: Dr. Arturo Harris Anesthesia Type: GETA plus local Blood Loss: 50 Specimans Obtained: cultures, debris Findings: 1000 cc ascites suctioned off, cultures sent, diffuse debris, obliteration of surgical planes preventing any meaningful exploration 09/21/2019 Patient seen and examined in the ICU She remains critically ill We have been trying to hold off on her Ativan for the past 24 hours She is a little more awake but shaky and agitated and anxious seems depressed Discussed with RN Chart reviewed 09/20/2019 Patient seen and examined in the ICU She is a little more alert today but still quite ill Appears clammy and pale and depressed/anxious Discussed with RN Chart reviewed 09/19/2019 Patient seen and examined in the ICU She appears extremely ill She is tachypneic at 35 respirations per minute and tachycardic at 132 bpm She is extremely encephalopathic and shaky She appears clammy Chart reviewed Discussed with RN Prognosis extremely guarded at best 09/18/2019 Patient still in ICU Resting with no apparent distress Chart reviewed 09/17/2019 Patient seen and examined in the ICU She is wiping her face with a cough Discussed with RN Chart reviewed We hope to get her out of the ICU later today if possible 09/16/2019 Patient seen and examined in the ICU once again She is back on NG suction On IV Zosyn Has IV TPN Sedated with Precedex but anxious still Appears somewhat clammy and pale Chart reviewed Discussed with RN She remains critically ill BRIEF OPERATIVE NOTE Pre-Op Diagnosis Pancreatitis with pseudocysts, suspected infection Post-Op Diagnosis same Procedure Performed CT abdominal Drains x 3 Surgeon Tesfaye Anesthesia Type: Conscious Sedation Findings 3 abdominal drains, 14F, with turbid pancreatic fluid and necrotic debris in each. Complications No immediate 08/26: Patient today somewhat restless and having bilious secretions from ET tube, imaging studies ordered, discussed with it security consultant. Pretty poor prognosis, hopefully is not a fistula, poor surgical candidate. 08/27: Imaging with no acute events, she seems more stable today compared to yesterday. Encouraged as much activity as possible patient at high risk for severe depression. Vitals Vitals Vital Signs Date Time Temp Pulse Resp B/P (MAP) Pulse Ox O2 Delivery O2 Flow Rate FiO2 10/10/19 09:00 117 22 119/67 (84) 97 Tracheal Collar 10/10/19 08:48 8.0 10/10/19 08:00 98.7 98.7 Physical Exam Physical Exam GENERAL: Propped up in bed, resting quietly HEENT: NGT in place. NECK: Tracheostomy LUNGS: Diminished aeration bases, no accessory muscle use - CT on left with clear fluid HEART: S1, S2,regular ABDOMEN: Mild distention, bowel sounds present, soft, grimaces to palpation, drains x 3 : Lind ( 09/24) EXTREMITIES: + edema BLE SKIN: no signs of gen rash LUE-PICC (09/15) without signs of complications General: Alert Heart: Regular rate (SR/ST), Other (distant heart sounds) Lungs: Other (diminshed in bases, Rhonci in LLL) Abdomen: Soft, Other (mildly TTP) Extremities: No cyanosis, Other (3+ bilateral LE pitting edema) Skin: No rashes, No significant lesion Labs LABS Laboratory Tests Test 10/09/19 11:51 10/09/19 18:25 10/10/19 01:12 Glucose (Fingerstick) 171 mg/dL (70-99) 140 mg/dL (70-99) 133 mg/dL (70-99) Assessment and Plan Assessmemt and Plan Problems Medical Problems: (1) Acute pancreatitis Status: Acute (2) Cholelithiasis Status: Acute Comment Review of Relevant I have reviewed the following items kolby (where applicable) has been applied. Labs Laboratory Tests Test 10/08/19 13:03 10/08/19 23:59 10/09/19 05:15 10/09/19 11:51 Glucose (Fingerstick) 170 mg/dL (70-99) 132 mg/dL (70-99) 171 mg/dL (70-99) White Blood Count 10.3 x10^3/uL (4.0-11.0) Red Blood Count 3.10 x10^6/uL (3.50-5.40) Hemoglobin 9.0 g/dL (12.0-15.5) Hematocrit 26.3 % (36.0-47.0) Mean Corpuscular Volume 85 fL (79-100) Mean Corpuscular Hemoglobin 29 pg (25-35) Mean Corpuscular Hemoglobin Concent 34 g/dL (31-37) Red Cell Distribution Width 17.4 % (11.5-14.5) Platelet Count 448 x10^3/uL (140-400) Neutrophils (%) (Auto) 74 % (31-73) Lymphocytes (%) (Auto) 17 % (24-48) Monocytes (%) (Auto) 7 % (0-9) Eosinophils (%) (Auto) 1 % (0-3) Basophils (%) (Auto) 0 % (0-3) Neutrophils # (Auto) 7.7 x10^3/uL (1.8-7.7) Lymphocytes # (Auto) 1.8 x10^3/uL (1.0-4.8) Monocytes # (Auto) 0.8 x10^3/uL (0.0-1.1) Eosinophils # (Auto) 0.1 x10^3/uL (0.0-0.7) Basophils # (Auto) 0.0 x10^3/uL (0.0-0.2) Sodium Level 136 mmol/L (136-145) Potassium Level 4.0 mmol/L (3.5-5.1) Chloride Level 102 mmol/L (98-107) Carbon Dioxide Level 29 mmol/L (21-32) Anion Gap 5 (6-14) Blood Urea Nitrogen 15 mg/dL (7-20) Creatinine 0.6 mg/dL (0.6-1.0) Estimated GFR (Cockcroft-Gault) 106.3 BUN/Creatinine Ratio 25 (6-20) Glucose Level 133 mg/dL (70-99) Calcium Level 9.8 mg/dL (8.5-10.1) Total Bilirubin 0.4 mg/dL (0.2-1.0) Aspartate Amino Transf (AST/SGOT) 19 U/L (15-37) Alanine Aminotransferase (ALT/SGPT) 15 U/L (14-59) Alkaline Phosphatase 113 U/L (46-116) Total Protein 4.3 g/dL (6.4-8.2) Albumin 1.0 g/dL (3.4-5.0) Albumin/Globulin Ratio 0.3 (1.0-1.7) Test 10/09/19 18:25 10/10/19 01:12 Glucose (Fingerstick) 140 mg/dL (70-99) 133 mg/dL (70-99) Laboratory Tests Test 10/09/19 11:51 10/09/19 18:25 10/10/19 01:12 Glucose (Fingerstick) 171 mg/dL (70-99) 140 mg/dL (70-99) 133 mg/dL (70-99) Microbiology 10/06/19 Blood Culture - Preliminary, Resulted NO GROWTH AFTER 3 DAYS 10/03/19 Gram Stain - Final, Complete 10/03/19 Aerobic and Anaerobic Culture - Final, Complete 10/01/19 Gram Stain Evaluation - Final, Complete 10/01/19 Respiratory Culture - Final, Complete 10/01/19 Antimicrobic Susceptibility - Final, Complete 09/25/19 Urine Culture - Final, Complete 09/17/19 Gram Stain - Final, Complete 09/17/19 Aerobic Culture - Final, Complete Medications Current Medications Sodium Chloride 1,000 ml @ 1,000 mls/hr Q1H IV Last administered on 07/04/19at 03:00; Start 07/04/19 at 03:00; Stop 07/04/19 at 03:59; Status DC Ondansetron HCl (Zofran) 4 mg 1X ONCE IVP Last administered on 07/04/19at 03:27; Start 07/04/19 at 03:00; Stop 07/04/19 at 03:01; Status DC Morphine Sulfate (Morphine Sulfate) 4 mg 1X ONCE IV ; Start 07/04/19 at 03:00; Stop 07/04/19 at 03:01; Status Cancel Ketorolac Tromethamine (Toradol 30mg Vial) 30 mg 1X ONCE IV Last administered on 07/04/19at 02:54; Start 07/04/19 at 03:00; Stop 07/04/19 at 03:01; Status DC Fentanyl Citrate (Fentanyl 2ml Vial) 25 mcg 1X ONCE IVP Last administered on 07/04/19at 03:23; Start 07/04/19 at 03:30; Stop 07/04/19 at 03:31; Status DC Fentanyl Citrate (Fentanyl 2ml Vial) 100 mcg STK-MED ONCE .ROUTE ; Start 07/04/19 at 03:18; Stop 07/04/19 at 03:18; Status DC Iohexol (Omnipaque 350 Mg/ml) 90 ml 1X ONCE IV Last administered on 07/04/19at 03:25; Start 07/04/19 at 03:30; Stop 07/04/19 at 03:31; Status DC Info (CONTRAST GIVEN -- Rx MONITORING) 1 each PRN DAILY PRN MC SEE COMMENTS; Start 07/04/19 at 03:30; Stop 07/06/19 at 03:29; Status DC Hydromorphone HCl (Dilaudid) 0.5 mg 1X ONCE IV Last administered on 07/04/19at 03:55; Start 07/04/19 at 04:30; Stop 07/04/19 at 04:32; Status DC Ondansetron HCl (Zofran) 4 mg PRN Q8HRS PRN IV NAUSEA/VOMITING 1ST CHOICE; Start 07/04/19 at 05:00; Stop 07/04/19 at 09:27; Status DC Morphine Sulfate (Morphine Sulfate) 2 mg PRN Q2HR PRN IV SEVERE PAIN 7-10 Last administered on 07/05/19at 12:26; Start 07/04/19 at 05:00; Stop 07/05/19 at 14:15; Status DC Sodium Chloride 1,000 ml @ 125 mls/hr Q8H IV Last administered on 07/04/19at 20:56; Start 07/04/19 at 05:00; Stop 07/05/19 at 04:59; Status DC Hydromorphone HCl (Dilaudid) 0.5 mg PRN Q3HRS PRN IV SEVERE PAIN 7-10 Last administered on 07/05/19at 10:06; Start 07/04/19 at 05:00; Stop 07/05/19 at 12:01; Status DC Piperacillin Sod/ Tazobactam Sod 4.5 gm/Sodium Chloride 100 ml @ 200 mls/hr 1X ONCE IV Last administered on 07/04/19at 05:44; Start 07/04/19 at 06:00; Stop 07/04/19 at 06:29; Status DC Ondansetron HCl (Zofran) 4 mg PRN Q4HRS PRN IV NAUSEA/VOMITING 1ST CHOICE Last administered on 10/09/19at 08:51; Start 07/04/19 at 09:30 Insulin Human Lispro (HumaLOG) 0-9 UNITS Q6HRS SQ Last administered on 10/09/19at 12:02; Start 07/04/19 at 09:30 Dextrose (Dextrose 50%-Water Syringe) 12.5 gm PRN Q15MIN PRN IV SEE COMMENTS; Start 07/04/19 at 09:30 Pantoprazole Sodium (PROTONIX VIAL for IV PUSH) 40 mg DAILYAC IVP Last administered on 10/10/19at 08:55; Start 07/04/19 at 11:30 Prochlorperazine Edisylate (Compazine) 10 mg PRN Q6HRS PRN IV NAUSEA/VOMITING, 2nd CHOICE Last administered on 10/08/19at 23:50; Start 07/04/19 at 17:45 Atenolol (Tenormin) 100 mg DAILY PO ; Start 07/05/19 at 09:00; Stop 07/04/19 at 20:08; Status DC Metoprolol Tartrate (Lopressor Vial) 2.5 mg Q6HRS IVP Last administered on 07/05/19at 05:51; Start 07/04/19 at 20:15; Stop 07/05/19 at 10:02; Status DC Metoprolol Tartrate (Lopressor Vial) 5 mg Q6HRS IVP Last administered on 07/14/19at 00:12; Start 07/05/19 at 10:15; Stop 07/16/19 at 08:48; Status DC Hydromorphone HCl (Dilaudid) 1 mg PRN Q3HRS PRN IV SEVERE PAIN 7-10 Last administered on 07/11/19at 05:13; Start 07/05/19 at 12:00; Stop 07/19/19 at 00:25; Status DC Lidocaine HCl (Buffered Lidocaine 1%) 3 ml STK-MED ONCE .ROUTE ; Start 07/05/19 at 12:55; Stop 07/05/19 at 12:56; Status DC Albumin Human 500 ml @ 125 mls/hr 1X ONCE IV Last administered on 07/05/19at 14:33; Start 07/05/19 at 14:30; Stop 07/05/19 at 18:32; Status DC Norepinephrine Bitartrate 8 mg/ Dextrose 258 ml @ 17.299 mls/ hr CONT PRN IV PER PROTOCOL Last administered on 08/02/19at 12:48; Start 07/05/19 at 15:30; Stop 08/05/19 at 09:19; Status DC Sodium Chloride 1,000 ml @ 125 mls/hr Q8H IV Last administered on 07/05/19at 21:04; Start 07/05/19 at 16:00; Stop 07/06/19 at 02:42; Status DC Albumin Human 500 ml @ 125 mls/hr PRN BID PRN IV After every 2L NSS & BP < 90mm Last administered on 09/24/19at 11:40; Start 07/05/19 at 16:00 Iohexol (Omnipaque 300 Mg/ml) 60 ml 1X ONCE IV Last administered on 07/05/19at 17:20; Start 07/05/19 at 17:00; Stop 07/05/19 at 17:01; Status DC Info (CONTRAST GIVEN -- Rx MONITORING) 1 each PRN DAILY PRN MC SEE COMMENTS; Start 07/05/19 at 17:00; Stop 07/07/19 at 16:59; Status DC Meropenem 1 gm/ Sodium Chloride 100 ml @ 200 mls/hr Q8HRS IV Last administered on 07/06/19at 05:45; Start 07/05/19 at 20:00; Stop 07/06/19 at 08:48; Status DC Furosemide (Lasix) 40 mg 1X ONCE IVP Last administered on 07/05/19at 22:12; Start 07/05/19 at 22:30; Stop 07/05/19 at 22:31; Status DC Calcium Chloride 1000 mg/Sodium Chloride 110 ml @ 220 mls/hr 1X ONCE IV Last administered on 07/05/19at 22:11; Start 07/05/19 at 22:30; Stop 07/05/19 at 22:59; Status DC Albuterol Sulfate (Ventolin Neb Soln) 2.5 mg 1X ONCE NEB Last administered on 07/06/19at 00:56; Start 07/05/19 at 22:30; Stop 07/05/19 at 22:31; Status DC Insulin Human Regular (HumuLIN R VIAL) 5 unit 1X ONCE IV Last administered on 07/05/19at 22:14; Start 07/05/19 at 22:30; Stop 07/05/19 at 22:31; Status DC Magnesium Sulfate 50 ml @ 25 mls/hr 1X ONCE IV Last administered on 07/06/19at 02:57; Start 07/06/19 at 03:00; Stop 07/06/19 at 04:59; Status DC Calcium Gluconate 1000 mg/Sodium Chloride 110 ml @ 220 mls/hr 1X ONCE IV Last administered on 07/06/19at 02:46; Start 07/06/19 at 03:00; Stop 07/06/19 at 03:29; Status DC Sodium Chloride 1,000 ml @ 200 mls/hr Q5H IV Last administered on 07/06/19at 02:46; Start 07/06/19 at 03:00; Stop 07/06/19 at 10:21; Status DC Calcium Gluconate 1000 mg/Sodium Chloride 110 ml @ 220 mls/hr 1X ONCE IV Last administered on 07/06/19at 03:21; Start 07/06/19 at 03:30; Stop 07/06/19 at 03:59; Status DC Sodium Bicarbonate 50 meq/Sodium Chloride 1,050 ml @ 75 mls/hr Q14H IV Last administered on 07/10/19at 21:10; Start 07/06/19 at 07:30; Stop 07/11/19 at 10:28; Status DC Calcium Gluconate 2000 mg/Sodium Chloride 120 ml @ 220 mls/hr 1X ONCE IV Last administered on 07/06/19at 09:05; Start 07/06/19 at 07:30; Stop 07/06/19 at 08:02; Status DC Lidocaine HCl (Xylocaine-Mpf 1% 2ml Vial) 2 ml STK-MED ONCE .ROUTE ; Start 07/06/19 at 08:47; Stop 07/06/19 at 08:47; Status DC Meropenem 500 mg/ Sodium Chloride 50 ml @ 100 mls/hr Q12HR IV Last administered on 07/11/19at 21:01; Start 07/06/19 at 18:00; Stop 07/12/19 at 07:58; Status DC Lidocaine HCl (Buffered Lidocaine 1%) 3 ml STK-MED ONCE .ROUTE ; Start 07/06/19 at 09:46; Stop 07/06/19 at 09:46; Status DC Lidocaine HCl (Buffered Lidocaine 1%) 6 ml 1X ONCE INJ Last administered on 07/06/19at 10:26; Start 07/06/19 at 10:15; Stop 07/06/19 at 10:16; Status DC Info (Tpn Per Pharmacy) 1 each PRN DAILY PRN MC SEE COMMENTS Last administered on 10/09/19at 11:19; Start 07/06/19 at 12:00 Sodium Chloride 1,000 ml @ 1,000 mls/hr Q1H PRN IV hypotension; Start 07/06/19 at 12:07; Stop 07/06/19 at 18:06; Status DC Diphenhydramine HCl (Benadryl) 25 mg 1X PRN PRN IV ITCHING; Start 07/06/19 at 12:15; Stop 07/07/19 at 12:14; Status DC Diphenhydramine HCl (Benadryl) 25 mg 1X PRN PRN IV ITCHING; Start 07/06/19 at 12:15; Stop 07/07/19 at 12:14; Status DC Sodium Chloride 1,000 ml @ 400 mls/hr Q2H30M PRN IV PATENCY; Start 07/06/19 at 12:07; Stop 07/07/19 at 00:06; Status DC Info (PHARMACY MONITORING -- do not chart) 1 each PRN DAILY PRN MC SEE COMMENTS; Start 07/06/19 at 12:15; Stop 07/08/19 at 08:13; Status DC Sodium Chloride 90 meq/Calcium Gluconate 10 meq/ Multivitamins 10 ml/Chromium/ Copper/Manganese/ Seleni/Zn 1 ml/ Total Parenteral Nutrition/Amino Acids/Dextrose/ Fat Emulsion Intravenous 55.005 ml @ 2.292 mls/hr TPN CONT IV ; Start 07/06/19 at 22:00; Stop 07/06/19 at 12:33; Status DC Info (Tpn Per Pharmacy) 1 each PRN DAILY PRN MC SEE COMMENTS; Start 07/06/19 at 12:30; Status UNV Sodium Chloride 90 meq/Calcium Gluconate 10 meq/ Multivitamins 10 ml/Chromium/ Copper/Manganese/ Seleni/Zn 0.5 ml/ Total Parenteral Nutrition/Amino Acids/Dextrose/ Fat Emulsion Intravenous 1,512 ml @ 63 mls/hr TPN CONT IV Last administered on 07/06/19at 22:06; Start 07/06/19 at 22:00; Stop 07/07/19 at 21:59; Status DC Calcium Carbonate/ Glycine (Tums) 500 mg PRN AFTMEALHC PRN PO INDIGESTION; Start 07/06/19 at 17:45; Stop 08/31/19 at 10:25; Status DC Calcium Gluconate (Calcium Gluconate) 2,000 mg 1X ONCE IVP Last administered on 07/07/19at 02:19; Start 07/07/19 at 02:15; Stop 07/07/19 at 02:16; Status DC Calcium Chloride 3000 mg/Sodium Chloride 1,030 ml @ 50 mls/hr [id number] IV Last administered on 07/09/19at 02:17; Start 07/07/19 at 08:00; Stop 07/09/19 at 15:23; Status DC Lorazepam (Ativan Inj) 1 mg PRN Q4HRS PRN IVP ANXIETY / AGITATION, 2nd choic Last administered on 08/05/19at 03:51; Start 07/07/19 at 09:00; Stop 08/05/19 at 09:19; Status DC Sodium Chloride 1,000 ml @ 1,000 mls/hr Q1H PRN IV hypotension; Start 07/07/19 at 08:56; Stop 07/07/19 at 14:55; Status DC Albumin Human 200 ml @ 200 mls/hr 1X PRN PRN IV Hypotension; Start 07/07/19 at 09:00; Stop 07/07/19 at 14:59; Status DC Diphenhydramine HCl (Benadryl) 25 mg 1X PRN PRN IV ITCHING; Start 07/07/19 at 09:00; Stop 07/08/19 at 08:59; Status DC Diphenhydramine HCl (Benadryl) 25 mg 1X PRN PRN IV ITCHING; Start 07/07/19 at 09:00; Stop 07/08/19 at 08:59; Status DC Sodium Chloride 1,000 ml @ 400 mls/hr Q2H30M PRN IV PATENCY; Start 07/07/19 at 08:56; Stop 07/07/19 at 20:55; Status DC Info (PHARMACY MONITORING -- do not chart) 1 each PRN DAILY PRN MC SEE COMMENTS; Start 07/07/19 at 09:00; Status UNV Info (PHARMACY MONITORING -- do not chart) 1 each PRN DAILY PRN MC SEE COMMENTS; Start 07/07/19 at 09:00; Stop 07/08/19 at 08:13; Status DC Digoxin (Lanoxin) 500 mcg 1X ONCE IV Last administered on 07/07/19at 10:04; Start 07/07/19 at 10:00; Stop 07/07/19 at 10:01; Status DC Digoxin (Lanoxin) 125 mcg 1X ONCE IV Last administered on 07/07/19at 17:10; Start 07/07/19 at 18:00; Stop 07/07/19 at 18:01; Status DC Magnesium Sulfate 100 ml @ 25 mls/hr 1X ONCE IV Last administered on 07/07/19at 12:48; Start 07/07/19 at 13:00; Stop 07/07/19 at 16:59; Status DC Sodium Chloride 90 meq/Magnesium Sulfate 10 meq/ Calcium Gluconate 20 meq/ Multivitamins 10 ml/Chromium/ Copper/Manganese/ Seleni/Zn 0.5 ml/ Total Parenteral Nutrition/Amino Acids/Dextrose/ Fat Emulsion Intravenous 1,512 ml @ 63 mls/hr TPN CONT IV Last administered on 07/07/19at 22:25; Start 07/07/19 at 22:00; Stop 07/08/19 at 21:59; Status DC Sodium Chloride 1,000 ml @ 1,000 mls/hr Q1H PRN IV hypotension; Start 07/08/19 at 08:05; Stop 07/08/19 at 14:04; Status DC Albumin Human 200 ml @ 200 mls/hr 1X ONCE IV Last administered on 07/08/19at 08:57; Start 07/08/19 at 08:15; Stop 07/08/19 at 09:14; Status DC Diphenhydramine HCl (Benadryl) 25 mg 1X PRN PRN IV ITCHING; Start 07/08/19 at 08:15; Stop 07/09/19 at 08:14; Status DC Diphenhydramine HCl (Benadryl) 25 mg 1X PRN PRN IV ITCHING; Start 07/08/19 at 08:15; Stop 07/09/19 at 08:14; Status DC Sodium Chloride 1,000 ml @ 400 mls/hr Q2H30M PRN IV PATENCY; Start 07/08/19 at 08:05; Stop 07/08/19 at 20:04; Status DC Info (PHARMACY MONITORING -- do not chart) 1 each PRN DAILY PRN MC SEE COMMENTS; Start 07/08/19 at 08:15; Stop 07/12/19 at 07:57; Status DC Sodium Chloride 90 meq/Potassium Chloride 15 meq/ Potassium Phosphate 10 mmol/ Magnesium Sulfate 10 meq/Calcium Gluconate 20 meq/ Multivitamins 10 ml/Chromium/ Copper/Manganese/ Seleni/Zn 0.5 ml/ Total Parenteral Nutrition/Amino Acids/Dextrose/ Fat Emulsion Intravenous 1,512 ml @ 63 mls/hr TPN CONT IV Last administered on 07/08/19at 21:01; Start 07/08/19 at 22:00; Stop 07/09/19 at 21:59; Status DC Potassium Chloride/Water 100 ml @ 100 mls/hr 1X ONCE IV Last administered on 07/08/19at 14:09; Start 07/08/19 at 14:00; Stop 07/08/19 at 14:59; Status DC Benzocaine (Hurricaine One) 1 spray 1X ONCE MM Last administered on 07/08/19at 16:38; Start 07/08/19 at 14:30; Stop 07/08/19 at 14:31; Status DC Lidocaine HCl (Glydo (Lidocaine) Jelly) 1 ramu 1X ONCE MM Last administered on 07/08/19at 16:38; Start 07/08/19 at 14:30; Stop 07/08/19 at 14:31; Status DC Linezolid/Dextrose 300 ml @ 300 mls/hr Q12HR IV Last administered on 07/14/19at 21:04; Start 07/08/19 at 20:00; Stop 07/15/19 at 07:50; Status DC Acetaminophen (Tylenol) 650 mg PRN Q6HRS PRN PO MILD PAIN / TEMP; Start 07/09/19 at 03:30; Stop 07/09/19 at 03:36; Status DC Acetaminophen (Tylenol) 650 mg PRN Q6HRS PRN PEG MILD PAIN / TEMP Last administered on 08/04/19at 19:56; Start 07/09/19 at 03:36; Stop 08/31/19 at 10: 25; Status DC Sodium Chloride 1,000 ml @ 1,000 mls/hr Q1H PRN IV hypotension; Start 07/09/19 at 07:50; Stop 07/09/19 at 13:49; Status DC Albumin Human 200 ml @ 200 mls/hr 1X PRN PRN IV Hypotension; Start 07/09/19 at 08:00; Stop 07/09/19 at 13:59; Status DC Sodium Chloride (Normal Saline Flush) 10 ml 1X PRN PRN IV AP catheter pack; Start 07/09/19 at 08:00; Stop 07/10/19 at 07:59; Status DC Sodium Chloride (Normal Saline Flush) 10 ml 1X PRN PRN IV LEGAL SUPPORT SPECIALIST catheter pack; Start 07/09/19 at 08:00; Stop 07/10/19 at 07:59; Status DC Sodium Chloride 1,000 ml @ 400 mls/hr Q2H30M PRN IV PATENCY; Start 07/09/19 at 07:50; Stop 07/09/19 at 19:49; Status DC Info (PHARMACY MONITORING -- do not chart) 1 each PRN DAILY PRN MC SEE COMMENTS; Start 07/09/19 at 08:00; Status UNV Info (PHARMACY MONITORING -- do not chart) 1 each PRN DAILY PRN MC SEE COMMENTS; Start 07/09/19 at 08:00; Stop 07/11/19 at 08:25; Status DC Sodium Chloride 90 meq/Potassium Chloride 15 meq/ Potassium Phosphate 10 mmol/ Magnesium Sulfate 10 meq/Calcium Gluconate 20 meq/ Multivitamins 10 ml/Chromium/ Copper/Manganese/ Seleni/Zn 0.5 ml/ Total Parenteral Nutrition/Amino Aci ds/Dextrose/ Fat Emulsion Intravenous 1,512 ml @ 63 mls/hr TPN CONT IV Last administered on 07/09/19at 20:57; Start 07/09/19 at 22:00; Stop 07/10/19 at 21:59; Status DC Sodium Chloride 90 meq/Potassium Chloride 15 meq/ Potassium Phosphate 15 mmol/ Magnesium Sulfate 10 meq/Calcium Gluconate 20 meq/ Multivitamins 10 ml/Chromium/ Copper/Manganese/ Seleni/Zn 0.5 ml/ Total Parenteral Nutrition/Amino Acids/Dextrose/ Fat Emulsion Intravenous 1,512 ml @ 63 mls/hr TPN CONT IV ; Start 07/10/19 at 22:00; Stop 07/10/19 at 14:16; Status DC Sodium Chloride 90 meq/Potassium Chloride 15 meq/ Potassium Phosphate 15 mmol/ Magnesium Sulfate 10 meq/Calcium Gluconate 20 meq/ Multivitamins 10 ml/Chromium/ Copper/Manganese/ Seleni/Zn 0.5 ml/ Total Parenteral Nutrition/Amino Acids/Dextrose/ Fat Emulsion Intravenous 1,200 ml @ 50 mls/hr TPN CONT IV ; Start 07/10/19 at 22:00; Stop 07/10/19 at 14:17; Status DC Sodium Chloride 90 meq/Potassium Chloride 15 meq/ Potassium Phosphate 10 mmol/ Magnesium Sulfate 10 meq/Calcium Gluconate 20 meq/ Multivitamins 10 ml/Chromium/ Copper/Manganese/ Seleni/Zn 0.5 ml/ Total Parenteral Nutrition/Amino Acids/Dextrose/ Fat Emulsion Intravenous 1,200 ml @ 50 mls/hr TPN CONT IV Last administered on 07/10/19at 23:29; Start 07/10/19 at 22:00; Stop 07/11/19 at 21:59; Status DC Sodium Chloride 1,000 ml @ 1,000 mls/hr Q1H PRN IV hypotension; Start 07/11/19 at 07:28; Stop 07/11/19 at 13:27; Status DC Albumin Human 200 ml @ 200 mls/hr 1X ONCE IV Last administered on 07/11/19at 08:51; Start 07/11/19 at 07:30; Stop 07/11/19 at 08:29; Status DC Diphenhydramine HCl (Benadryl) 25 mg 1X PRN PRN IV ITCHING; Start 07/11/19 at 07:30; Stop 07/12/19 at 07:29; Status DC Diphenhydramine HCl (Benadryl) 25 mg 1X PRN PRN IV ITCHING; Start 07/11/19 at 07:30; Stop 07/12/19 at 07:29; Status DC Sodium Chloride 1,000 ml @ 400 mls/hr Q2H30M PRN IV PATENCY; Start 07/11/19 at 07:28; Stop 07/11/19 at 19:27; Status DC Info (PHARMACY MONITORING -- do not chart) 1 each PRN DAILY PRN MC SEE COMMENTS; Start 07/11/19 at 07:30; Stop 07/22/19 at 13:01; Status DC Metronidazole 100 ml @ 100 mls/hr Q6HRS IV Last administered on 07/27/19at 06:26; Start 07/11/19 at 08:30; Stop 07/27/19 at 09:58; Status DC Micafungin Sodium 100 mg/Dextrose 100 ml @ 100 mls/hr Q24H IV Last administ ered on 08/18/19at 08:18; Start 07/11/19 at 09:00; Stop 08/18/19 at 20:58; Status DC Propofol 0 ml @ As Directed STK-MED ONCE IV ; Start 07/11/19 at 07:53; Stop 07/11/19 at 07:53; Status DC Etomidate (Amidate) 20 mg STK-MED ONCE IV ; Start 07/11/19 at 07:53; Stop 07/11/19 at 07:54; Status DC Midazolam HCl (Versed) 5 mg STK-MED ONCE .ROUTE ; Start 07/11/19 at 07:57; Stop 07/11/19 at 07:57; Status DC Fentanyl Citrate 30 ml @ 0 mls/hr CONT PRN IV SEE PROTOCOL Last administered on 08/05/19at 06:12; Start 07/11/19 at 08:15; Stop 08/05/19 at 09:19; Status DC Artificial Tears (Artificial Tears) 1 drop PRN Q1HR PRN OU DRY EYE, 1st choice; Start 07/11/19 at 08:15; Stop 08/17/19 at 05:31; Status DC Midazolam HCl 50 mg/Sodium Chloride 50 ml @ 0 mls/hr CONT PRN IV SEE PROTOCOL Last administered on 07/14/19at 22:39; Start 07/11/19 at 08:15; Stop 07/16/19 at 15:59; Status DC Etomidate (Amidate) 8 mg 1X ONCE IV Last administered on 07/11/19at 08:33; Start 07/11/19 at 08:30; Stop 07/11/19 at 08:31; Status DC Succinylcholine Chloride (Anectine) 120 mg 1X ONCE IV Last administered on 07/11/19at 08:34; Start 07/11/19 at 08:30; Stop 07/11/19 at 08:31; Status DC Midazolam HCl (Versed) 5 mg 1X ONCE IV ; Start 07/11/19 at 08:30; Stop 07/11/19 at 08:31; Status DC Potassium Chloride 15 meq/ Bicarbonate Dialysis Soln w/ out KCl 5,007.5 ml @ 1,000 mls/ hr Q5H1M IV Last administered on 07/12/19at 11:11; Start 07/11/19 at 12:00; Stop 07/12/19 at 11:15; Status DC Potassium Chloride 15 meq/ Bicarbonate Dialysis Soln w/ out KCl 5,007.5 ml @ 1,000 mls/ hr Q5H1M IV Last administered on 07/12/19at 11:12; Start 07/11/19 at 12:00; Stop 07/12/19 at 11:17; Status DC Potassium Chloride 15 meq/ Bicarbonate Dialysis Soln w/ out KCl 5,007.5 ml @ 1,000 mls/ hr Q5H1M IV Last administered on 07/12/19at 11:11; Start 07/11/19 at 12:00; Stop 07/12/19 at 11:19; Status DC Sodium Chloride 90 meq/Potassium Chloride 15 meq/ Potassium Phosphate 10 mmol/ Magnesium Sulfate 10 meq/Calcium Gluconate 20 meq/ Multivitamins 10 ml/Chromium/ Copper/Manganese/ Seleni/Zn 0.5 ml/ Total Parenteral Nutrition/Amino Acids/Dextrose/ Fat Emulsion Intravenous 1,400 ml @ 58.333 mls/ hr TPN CONT IV Last administered on 07/11/19at 21:42; Start 07/11/19 at 22:00; Stop 07/12/19 at 21:59; Status DC Heparin Sodium (Porcine) (Heparin Sodium) 5,000 unit Q8HRS SQ Last administered on 07/16/19at 05:55; Start 07/11/19 at 15:00; Stop 07/16/19 at 13:28; Status DC Meropenem 500 mg/ Sodium Chloride 50 ml @ 100 mls/hr Q6HRS IV Last administered on 07/13/19at 06:00; Start 07/12/19 at 09:00; Stop 07/13/19 at 07:29; Status DC Potassium Phosphate 20 mmol/ Sodium Chloride 106.6667 ml @ 51.667 m... 1X ONCE IV Last administered on 07/12/19at 11:22; Start 07/12/19 at 10:15; Stop 07/12/19 at 12:18; Status DC Acetaminophen (Tylenol Supp) 650 mg PRN Q6HRS PRN MI MILD PAIN / TEMP > 100.3'F Last administered on 10/06/19at 10:16; Start 07/12/19 at 10:30 Potassium Chloride/Water 100 ml @ 100 mls/hr Q1H IV Last administered on 07/12/19at 12:12; Start 07/12/19 at 11:00; Stop 07/12/19 at 12:59; Status DC Potassium Chloride 20 meq/ Bicarbonate Dialysis Soln w/ out KCl 5,010 ml @ 1,000 mls/hr Q5H1M IV Last administered on 07/13/19at 08:48; Start 07/12/19 at 12:00; Stop 07/13/19 at 13:03; Status DC Potassium Chloride 20 meq/ Bicarbonate Dialysis Soln w/ out KCl 5,010 ml @ 1,000 mls/hr Q5H1M IV Last administered on 07/17/19at 14:52; Start 07/12/19 at 11:30; Stop 07/17/19 at 19:59; Status DC Potassium Chloride 20 meq/ Bicarbonate Dialysis Soln w/ out KCl 5,010 ml @ 1,000 mls/hr Q5H1M IV Last administered on 07/17/19at 14:53; Start 07/12/19 at 11:30; Stop 07/17/19 at 19:59; Status DC Sodium Chloride 90 meq/Potassium Chloride 15 meq/ Potassium Phosphate 15 mmol/ Magnesium Sulfate 10 meq/Calcium Gluconate 15 meq/ Multivitamins 10 ml/Chromium/ Copper/Manganese/ Seleni/Zn 0.5 ml/ Total Parenteral Nutrition/Amino Acids/Dextrose/ Fat Emulsion Intravenous 1,400 ml @ 58.333 mls/ hr TPN CONT IV Last administered on 07/12/19at 22:17; Start 07/12/19 at 22:00; Stop 07/13/19 at 21:59; Status DC Cefepime HCl (Maxipime) 2 gm Q12HR IVP Last administered on 07/26/19at 20:56; Start 07/13/19 at 09:00; Stop 07/27/19 at 09:58; Status DC Daptomycin 500 mg/ Sodium Chloride 50 ml @ 100 mls/hr Q48H IV Last administered on 07/29/19at 09:57; Start 07/13/19 at 08:30; Stop 07/29/19 at 10:07; Status DC Lidocaine HCl (Buffered Lidocaine 1%) 3 ml 1X ONCE INJ Last administered on 07/13/19at 10:27; Start 07/13/19 at 10:30; Stop 07/13/19 at 10:31; Status DC Potassium Phosphate 20 mmol/ Sodium Chloride 106.6667 ml @ 51.667 m... 1X ONCE IV Last administered on 07/13/19at 12:51; Start 07/13/19 at 13:00; Stop 07/13/19 at 15:03; Status DC Sodium Chloride 90 meq/Potassium Chloride 15 meq/ Potassium Phosphate 18 mmol/ Magnesium Sulfate 8 meq/Calcium Gluconate 15 meq/ Multivitamins 10 ml/Chromium/ Copper/Manganese/ Seleni/Zn 0.5 ml/ Total Parenteral Nutrition/Amino Acids/Dextrose/ Fat Emulsion Intravenous 1,400 ml @ 58.333 mls/ hr TPN CONT IV Last administered on 07/13/19at 22:16; Start 07/13/19 at 22:00; Stop 07/14/19 at 21:59; Status DC Potassium Chloride 20 meq/ Bicarbonate Dialysis Soln w/ out KCl 5,010 ml @ 1,000 mls/hr Q5H1M IV Last administered on 07/17/19at 14:54; Start 07/13/19 at 16:00; Stop 07/17/19 at 19:59; Status DC Multi-Ingred Cream/Lotion/Oil/ Oint (Artificial Tears Eye Ointment) 1 ramu PRN Q1HR PRN OU DRY EYE, 2nd choice Last administered on 08/01/19at 08:19; Start 07/13/19 at 17:30; Stop 09/21/19 at 14:39; Status DC Sodium Chloride 90 meq/Potassium Chloride 15 meq/ Potassium Phosphate 18 mmol/ Magnesium Sulfate 8 meq/Calcium Gluconate 15 meq/ Multivitamins 10 ml/Chromium/ Copper/Manganese/ Seleni/Zn 0.5 ml/ Total Parenteral Nutrition/Amino Acids/Dextrose/ Fat Emulsion Intravenous 1,400 ml @ 58.333 mls/ hr TPN CONT IV Last administered on 07/14/19at 22:00; Start 07/14/19 at 22:00; Stop 07/15/19 at 21:59; Status DC Albumin Human 500 ml @ 125 mls/hr 1X ONCE IV ; Start 07/14/19 at 14:15; Stop 07/14/19 at 18:14; Status DC Sodium Chloride 90 meq/Potassium Chloride 15 meq/ Potassium Phosphate 18 mmol/ Magnesium Sulfate 8 meq/Calcium Gluconate 15 meq/ Multivitamins 10 ml/Chromium/ Copper/Manganese/ Seleni/Zn 0.5 ml/ Insulin Human Regular 10 unit/ Total Parenteral Nutrition/Amino Acids/Dextrose/ Fat Emulsion Intravenous 1,400 ml @ 58.333 mls/ hr TPN CONT IV Last administered on 07/15/19at 21:43; Start 07/15/19 at 22:00; Stop 07/16/19 at 21:59; Status DC Lidocaine HCl (Buffered Lidocaine 1%) 3 ml STK-MED ONCE .ROUTE ; Start 07/13/19 at 10:00; Stop 07/15/19 at 13:57; Status DC Midazolam HCl 100 mg/Sodium Chloride 100 ml @ 7 mls/hr CONT PRN IV SEE PROTOCOL Last administered on 07/27/19at 15:35; Start 07/16/19 at 16:00; Stop 09/21/19 at 14:38; Status DC Sodium Chloride 90 meq/Potassium Chloride 15 meq/ Potassium Phosphate 18 mmol/ Magnesium Sulfate 8 meq/Calcium Gluconate 15 meq/ Multivitamins 10 ml/Chromium/ Copper/Manganese/ Seleni/Zn 0.5 ml/ Insulin Human Regular 15 unit/ Total Parenteral Nutrition/Amino Acids/Dextrose/ Fat Emulsion Intravenous 1,400 ml @ 58.333 mls/ hr TPN CONT IV Last administered on 07/16/19at 20:34; Start 07/16/19 at 22:00; Stop 07/17/19 at 21:59; Status DC Info (Icu Electrolyte Protocol) 1 ea CONT PRN PRN MC PER PROTOCOL; Start 07/17/19 at 13:15 Sodium Chloride 90 meq/Potassium Chloride 15 meq/ Potassium Phosphate 18 mmol/ Magnesium Sulfate 8 meq/Calcium Gluconate 15 meq/ Multivitamins 10 ml/Chromium/ Copper/Manganese/ Seleni/Zn 0.5 ml/ Insulin Human Regular 15 unit/ Total Parenteral Nutrition/Amino Acids/Dextrose/ Fat Emulsion Intravenous 1,400 ml @ 58.333 mls/ hr TPN CONT IV Last administered on 07/17/19at 22:05; Start 07/17/19 at 22:00; Stop 07/18/19 at 21:59; Status DC Potassium Chloride 15 meq/ Bicarbonate Dialysis Soln w/ out KCl 5,007.5 ml @ 1,000 mls/ hr Q5H1M IV Last administered on 07/20/19at 18:14; Start 07/17/19 at 20:00; Stop 07/21/19 at 13:08; Status DC Potassium Chloride 15 meq/ Bicarbonate Dialysis Soln w/ out KCl 5,007.5 ml @ 1,000 mls/ hr Q5H1M IV Last administered on 07/20/19at 18:14; Start 07/17/19 at 20:00; Stop 07/21/19 at 13:08; Status DC Potassium Chloride 15 meq/ Bicarbonate Dialysis Soln w/ out KCl 5,007.5 ml @ 1,000 mls/ hr Q5H1M IV Last administered on 07/20/19at 18:14; Start 07/17/19 at 20:00; Stop 07/21/19 at 13:08; Status DC Iohexol (Omnipaque 240 Mg/ml) 30 ml 1X ONCE PO Last administered on 07/18/19at 11:30; Start 07/18/19 at 11:30; Stop 07/18/19 at 11:33; Status DC Info (CONTRAST GIVEN -- Rx MONITORING) 1 each PRN DAILY PRN MC SEE COMMENTS; Start 07/18/19 at 11:45; Stop 07/20/19 at 11:44; Status DC Sodium Chloride 90 meq/Potassium Chloride 15 meq/ Potassium Phosphate 18 mmol/ Magnesium Sulfate 8 meq/Calcium Gluconate 15 meq/ Multivitamins 10 ml/Chromium/ Copper/Manganese/ Seleni/Zn 0.5 ml/ Insulin Human Regular 15 unit/ Total Parenteral Nutrition/Amino Acids/Dextrose/ Fat Emulsion Intravenous 1,400 ml @ 58.333 mls/ hr TPN CONT IV Last administered on 07/18/19at 21:47; Start 07/18/19 at 22:00; Stop 07/19/19 at 21:59; Status DC Sodium Chloride 90 meq/Potassium Chloride 15 meq/ Potassium Phosphate 18 mmol/ Magnesium Sulfate 8 meq/Calcium Gluconate 15 meq/ Multivitamins 10 ml/Chromium/ Copper/Manganese/ Seleni/Zn 0.5 ml/ Insulin Human Regular 20 unit/ Total Parenteral Nutrition/Amino Acids/Dextrose/ Fat Emulsion Intravenous 1,400 ml @ 58.333 mls/ hr TPN CONT IV Last administered on 07/19/19at 21:36; Start 07/19/19 at 22:00; Stop 07/20/19 at 21:59; Status DC Alteplase, Recombinant (Cathflo For Central Catheter Clearance) 1 mg 1X ONCE INT CAT Last administered on 07/19/19at 20:03; Start 07/19/19 at 19:30; Stop 07/19/19 at 19:46; Status DC Alteplase, Recombinant (Cathflo For Central Catheter Clearance) 1 mg 1X ONCE INT CAT Last administered on 07/19/19at 22:05; Start 07/19/19 at 22:00; Stop 07/19/19 at 22:01; Status DC Sodium Chloride 90 meq/Potassium Chloride 15 meq/ Potassium Phosphate 18 mmol/ Magnesium Sulfate 8 meq/Calcium Gluconate 15 meq/ Multivitamins 10 ml/Chromium/ Copper/Manganese/ Seleni/Zn 0.5 ml/ Insulin Human Regular 20 unit/ Total Parenteral Nutrition/Amino Acids/Dextrose/ Fat Emulsion Intravenous 1,400 ml @ 58.333 mls/ hr TPN CONT IV Last administered on 07/20/19at 21:30; Start 07/20/19 at 22:00; Stop 07/21/19 at 21:59; Status DC Dexmedetomidine HCl 400 mcg/ Sodium Chloride 100 ml @ 0 mls/hr CONT PRN IV ANXIETY / AGITATION Last administered on 09/17/19at 12:57; Start 07/21/19 at 08:15; Stop 09/17/19 at 18:31; Status DC Sodium Chloride 500 ml @ 500 mls/hr 1X PRN PRN IV ELEVATED BP, SEE COMMENTS; Start 07/21/19 at 08:15 Atropine Sulfate (ATROPINE 0.5mg SYRINGE) 0.5 mg PRN Q5MIN PRN IV SEE COMMENTS; Start 07/21/19 at 08:15 Furosemide (Lasix) 20 mg 1X ONCE IVP Last administered on 07/21/19at 08:19; Start 07/21/19 at 08:15; Stop 07/21/19 at 08:16; Status DC Lidocaine HCl (Buffered Lidocaine 1%) 3 ml STK-MED ONCE .ROUTE ; Start 07/21/19 at 08:39; Stop 07/21/19 at 08:39; Status DC Lidocaine HCl (Buffered Lidocaine 1%) 6 ml 1X ONCE INJ Last administered on 07/21/19at 09:05; Start 07/21/19 at 09:00; Stop 07/21/19 at 09:06; Status DC Sodium Chloride 90 meq/Potassium Chloride 15 meq/ Potassium Phosphate 18 mmol/ Magnesium Sulfate 8 meq/Calcium Gluconate 15 meq/ Multivitamins 10 ml/Chromium/ Copper/Manganese/ Seleni/Zn 0.5 ml/ Insulin Human Regular 20 unit/ Total Parenteral Nutrition/Amino Acids/Dextrose/ Fat Emulsion Intravenous 1,400 ml @ 58.333 mls/ hr TPN CONT IV Last administered on 07/21/19at 22:45; Start 07/21/19 at 22:00; Stop 07/22/19 at 21:59; Status DC Sodium Chloride 1,000 ml @ 1,000 mls/hr Q1H PRN IV hypotension; Start 07/22/19 at 07:30; Stop 07/22/19 at 13:29; Status DC Albumin Human 200 ml @ 200 mls/hr 1X PRN PRN IV Hypotension Last administered on 07/22/19at 09:36; Start 07/22/19 at 07:30; Stop 07/22/19 at 13:29; Status DC Sodium Chloride (Normal Saline Flush) 10 ml 1X PRN PRN IV AP catheter pack; Start 07/22/19 at 07:30; Stop 07/22/19 at 21:29; Status DC Sodium Chloride (Normal Saline Flush) 10 ml 1X PRN PRN IV LEGAL SUPPORT SPECIALIST catheter pack; Start 07/22/19 at 07:30; Stop 07/23/19 at 07:29; Status DC Sodium Chloride 1,000 ml @ 400 mls/hr Q2H30M PRN IV PATENCY; Start 07/22/19 at 07:30; Stop 07/22/19 at 19:29; Status DC Info (PHARMACY MONITORING -- do not chart) 1 each PRN DAILY PRN MC SEE COMMENTS; Start 07/22/19 at 07:30; Stop 07/22/19 at 13:02; Status DC Info (PHARMACY MONITORING -- do not chart) 1 each PRN DAILY PRN MC SEE COMMENTS; Start 07/22/19 at 07:30; Stop 07/24/19 at 12:45; Status DC Sodium Chloride 90 meq/Potassium Chloride 15 meq/ Potassium Phosphate 10 mmol/ Magnesium Sulfate 8 meq/Calcium Gluconate 15 meq/ Multivitamins 10 ml/Chromium/ Copper/Manganese/ Seleni/Zn 0.5 ml/ Insulin Human Regular 25 unit/ Total Parenteral Nutrition/Amino Acids/Dextrose/ Fat Emulsion Intravenous 1,400 ml @ 58.333 mls/ hr TPN CONT IV Last administered on 07/22/19at 22:19; Start 07/22/19 at 22:00; Stop 07/23/19 at 21:59; Status DC Heparin Sodium (Porcine) (Heparin Sodium) 5,000 unit Q12HR SQ Last administered on 08/14/19at 08:59; Start 07/22/19 at 21:00; Stop 08/14/19 at 10:05; Status DC Ondansetron HCl (Zofran) 4 mg PRN Q6HRS PRN IV NAUSEA/VOMITING; Start 07/25/19 at 07:00; Stop 07/26/19 at 06:59; Status DC Fentanyl Citrate (Fentanyl 2ml Vial) 25 mcg PRN Q5MIN PRN IV MILD PAIN 1-3; Start 07/25/19 at 07:00; Stop 07/26/19 at 06:59; Status DC Fentanyl Citrate (Fentanyl 2ml Vial) 50 mcg PRN Q5MIN PRN IV MODERATE TO SEVERE PAIN; Start 07/25/19 at 07:00; Stop 07/26/19 at 06:59; Status DC Ringer's Solution 1,000 ml @ 30 mls/hr Q24H IV ; Start 07/25/19 at 07:00; Stop 07/25/19 at 18:59; Status DC Lidocaine HCl (Xylocaine-Mpf 1% 2ml Vial) 2 ml PRN 1X PRN ID PRIOR TO IV START; Start 07/25/19 at 07:00; Stop 07/26/19 at 06:59; Status DC Prochlorperazine Edisylate (Compazine) 5 mg PACU PRN PRN IV NAUSEA, MRX1; Start 07/25/19 at 07:00; Stop 07/26/19 at 06:59; Status DC Sodium Chloride 1,000 ml @ 1,000 mls/hr Q1H PRN IV hypotension; Start 07/23/19 at 09:10; Stop 07/23/19 at 15:09; Status DC Albumin Human 200 ml @ 200 mls/hr 1X PRN PRN IV Hypotension Last administered on 07/23/19at 10:10; Start 07/23/19 at 09:15; Stop 07/23/19 at 15:14; Status DC Sodium Chloride 1,000 ml @ 400 mls/hr Q2H30M PRN IV PATENCY; Start 07/23/19 at 09:10; Stop 07/23/19 at 21:09; Status DC Info (PHARMACY MONITORING -- do not chart) 1 each PRN DAILY PRN MC SEE COMMENTS; Start 07/23/19 at 09:15; Stop 07/24/19 at 12:45; Status DC Info (PHARMACY MONITORING -- do not chart) 1 each PRN DAILY PRN MC SEE COMMENTS; Start 07/23/19 at 09:15; Stop 07/24/19 at 12:45; Status DC Sodium Chloride 90 meq/Potassium Chloride 15 meq/ Potassium Phosphate 10 mmol/ Magnesium Sulfate 8 meq/Calcium Gluconate 15 meq/ Multivitamins 10 ml/Chromium/ Copper/Manganese/ Seleni/Zn 0.5 ml/ Insulin Human Regular 25 unit/ Total Parenteral Nutrition/Amino Acids/Dextrose/ Fat Emulsion Intravenous 1,400 ml @ 58.333 mls/ hr TPN CONT IV Last administered on 07/23/19at 22:10; Start 07/23/19 at 22:00; Stop 07/24/19 at 21:59; Status DC Magnesium Sulfate 50 ml @ 25 mls/hr PRN DAILY PRN IV for Mag < 1.7 on am labs Last administered on 10/06/19at 10:57; Start 07/24/19 at 09:15 Sodium Chloride 90 meq/Potassium Chloride 15 meq/ Potassium Phosphate 10 mmol/ Magnesium Sulfate 8 meq/Calcium Gluconate 15 meq/ Multivitamins 10 ml/Chromium/ Copper/Manganese/ Seleni/Zn 0.5 ml/ Insulin Human Regular 25 unit/ Total Parenteral Nutrition/Amino Acids/Dextrose/ Fat Emulsion Intravenous 1,400 ml @ 58.333 mls/ hr TPN CONT IV Last administered on 07/24/19at 21:20; Start 07/24/19 at 22:00; Stop 07/25/19 at 21:59; Status DC Sodium Chloride 1,000 ml @ 1,000 mls/hr Q1H PRN IV hypotension; Start 07/24/19 at 12:23; Stop 07/24/19 at 18:22; Status DC Albumin Human 200 ml @ 200 mls/hr 1X ONCE IV Last administered on 07/24/19at 13:34; Start 07/24/19 at 12:30; Stop 07/24/19 at 13:29; Status DC Diphenhydramine HCl (Benadryl) 25 mg 1X PRN PRN IV ITCHING; Start 07/24/19 at 12:30; Stop 07/25/19 at 12:29; Status DC Diphenhydramine HCl (Benadryl) 25 mg 1X PRN PRN IV ITCHING; Start 07/24/19 at 12:30; Stop 07/25/19 at 12:29; Status DC Info (PHARMACY MONITORING -- do not chart) 1 each PRN DAILY PRN MC SEE COMMENTS; Start 07/24/19 at 12:30; Status Cancel Bupivacaine HCl/ Epinephrine Bitart (Sensorcain-Epi 0.5%-1:[id number] Mpf) 30 ml STK-MED ONCE .ROUTE Last administered on 07/25/19at 11:44; Start 07/25/19 at 11:00; Stop 07/25/19 at 11:01; Status DC Cellulose (Surgicel Fibrillar 1x2) 1 each STK-MED ONCE .ROUTE ; Start 07/25/19 at 11:00; Stop 07/25/19 at 11:01; Status DC Sodium Chloride 90 meq/Potassium Chloride 15 meq/ Potassium Phosphate 10 mmol/ Magnesium Sulfate 12 meq/Calcium Gluconate 15 meq/ Multivitamins 10 ml/Chromium/ Copper/Manganese/ Seleni/Zn 0.5 ml/ Insulin Human Regular 25 unit/ Total Parenteral Nutrition/Amino Acids/Dextrose/ Fat Emulsion Intravenous 1,400 ml @ 58.333 mls/ hr TPN CONT IV Last administered on 07/25/19at 22:24; Start 07/25/19 at 22:00; Stop 07/26/19 at 21:59; Status DC Propofol 20 ml @ As Directed STK-MED ONCE IV ; Start 07/25/19 at 11:07; Stop 07/25/19 at 11:07; Status DC Cellulose (Surgicel Hemostat 4x8) 1 each STK-MED ONCE .ROUTE Last administered on 07/25/19at 11:44; Start 07/25/19 at 11:55; Stop 07/25/19 at 11:56; Status DC Sevoflurane (Ultane) 60 ml STK-MED ONCE IH ; Start 07/25/19 at 12:46; Stop 07/25/19 at 12:46; Status DC Sodium Chloride 1,000 ml @ 1,000 mls/hr Q1H PRN IV hypotension; Start 07/25/19 a t 13:51; Stop 07/25/19 at 19:50; Status DC Albumin Human 200 ml @ 200 mls/hr 1X PRN PRN IV Hypotension Last administered on 07/25/19at 14:51; Start 07/25/19 at 14:00; Stop 07/25/19 at 19:59; Status DC Diphenhydramine HCl (Benadryl) 25 mg 1X PRN PRN IV ITCHING; Start 07/25/19 at 14:00; Stop 07/26/19 at 13:59; Status DC Diphenhydramine HCl (Benadryl) 25 mg 1X PRN PRN IV ITCHING; Start 07/25/19 at 14:00; Stop 07/26/19 at 13:59; Status DC Sodium Chloride 1,000 ml @ 400 mls/hr Q2H30M PRN IV PATENCY; Start 07/25/19 at 13:51; Stop 07/26/19 at 01:50; Status DC Info (PHARMACY MONITORING -- do not chart) 1 each PRN DAILY PRN MC SEE COMMENTS; Start 07/25/19 at 14:00; Stop 07/28/19 at 08:16; Status DC Heparin Sodium (Porcine) (Hep Lock Adult) 500 unit STK-MED ONCE IVP ; Start 07/26/19 at 09:29; Stop 07/26/19 at 09:30; Status DC Sodium Chloride 1,000 ml @ 1,000 mls/hr Q1H PRN IV hypotension; Start 07/26/19 at 10:43; Stop 07/26/19 at 16:42; Status DC Sodium Chloride 1,000 ml @ 400 mls/hr Q2H30M PRN IV PATENCY; Start 07/26/19 at 10:43; Stop 07/26/19 at 22:42; Status DC Info (PHARMACY MONITORING -- do not chart) 1 each PRN DAILY PRN MC SEE COMMENTS; Start 07/26/19 at 10:45; Status UNV Info (PHARMACY MONITORING -- do not chart) 1 each PRN DAILY PRN MC SEE COMMENTS; Start 07/26/19 at 10:45; Status UNV Sodium Chloride 90 meq/Potassium Chloride 15 meq/ Magnesium Sulfate 12 meq/Calcium Gluconate 15 meq/ Multivitamins 10 ml/Chromium/ Copper/Manganese/ Seleni/Zn 0.5 ml/ Insulin Human Regular 25 unit/ Total Parenteral Nutrition/Amino Acids/Dextrose/ Fat Emulsion Intravenous 1,400 ml @ 58.333 mls/ hr TPN CONT IV Last administered on 07/26/19at 22:13; Start 07/26/19 at 22:00; Stop 07/27/19 at 21:59; Status DC Sodium Chloride 1,000 ml @ 1,000 mls/hr Q1H PRN IV hypotension; Start 07/27/19 at 07:50; Stop 07/27/19 at 13:49; Status DC Albumin Human 200 ml @ 200 mls/hr 1X ONCE IV ; Start 07/27/19 at 08:00; Stop 07/27/19 at 08:53; Status DC Diphenhydramine HCl (Benadryl) 25 mg 1X PRN PRN IV ITCHING; Start 07/27/19 at 08:00; Stop 07/28/19 at 07:59; Status DC Diphenhydramine HCl (Benadryl) 25 mg 1X PRN PRN IV ITCHING; Start 07/27/19 at 08:00; Stop 07/28/19 at 07:59; Status DC Info (PHARMACY MONITORING -- do not chart) 1 each PRN DAILY PRN MC SEE COMMENTS; Start 07/27/19 at 08:00; Stop 07/28/19 at 08:16; Status DC Albumin Human 50 ml @ 50 mls/hr 1X ONCE IV ; Start 07/27/19 at 08:53; Stop 07/27/19 at 08:56; Status DC Albumin Human 200 ml @ 50 mls/hr PRN 1X PRN IV HYPOTENSION Last administered on 08/02/19at 11:54; Start 07/27/19 at 09:00; Stop 09/08/19 at 11:14; Status DC Meropenem 500 mg/ Sodium Chloride 50 ml @ 100 mls/hr Q12H IV Last administered on 08/16/19at 10:45; Start 07/27/19 at 10:00; Stop 08/16/19 at 12:37; Status DC Sodium Chloride 90 meq/Magnesium Sulfate 12 meq/ Calcium Gluconate 15 meq/ Multivitamins 10 ml/Chromium/ Copper/Manganese/ Seleni/Zn 0.5 ml/ Insulin Human Regular 25 unit/ Total Parenteral Nutrition/Amino Acids/Dextrose/ Fat Emulsion Intravenous 1,400 ml @ 58.333 mls/ hr TPN CONT IV Last administered on 07/27/19at 21:41; Start 07/27/19 at 22:00; Stop 07/28/19 at 21:59; Status DC Sodium Chloride 1,000 ml @ 1,000 mls/hr Q1H PRN IV hypotension; Start 07/28/19 at 07:58; Stop 07/28/19 at 13:57; Status DC Albumin Human 200 ml @ 200 mls/hr 1X PRN PRN IV Hypotension Last administered on 07/28/19at 09:30; Start 07/28/19 at 08:00; Stop 07/28/19 at 13:59; Status DC Sodium Chloride 1,000 ml @ 400 mls/hr Q2H30M PRN IV PATENCY; Start 07/28/19 at 07:58; Stop 07/28/19 at 19:57; Status DC Info (PHARMACY MONITORING -- do not chart) 1 each PRN DAILY PRN MC SEE COMMENTS; Start 07/28/19 at 08:00; Status Cancel Info (PHARMACY MONITORING -- do not chart) 1 each PRN DAILY PRN MC SEE COMMENTS; Start 07/28/19 at 08:15; Status UNV Sodium Chloride 90 meq/Potassium Phosphate 5 mmol/ Magnesium Sulfate 12 meq/ Calcium Gluconate 15 meq/ Multivitamins 10 ml/Chromium/ Copper/Manganese/ Seleni/Zn 0.5 ml/ Insulin Human Regular 30 unit/ Total Parenteral Nutrition/Amino Acids/Dextrose/ Fat Emulsion Intravenous 1,400 ml @ 58.333 mls/ hr TPN CONT IV Last administered on 07/28/19at 22:08; Start 07/28/19 at 22:00; Stop 07/29/19 at 21:59; Status DC Linezolid/Dextrose 300 ml @ 300 mls/hr Q12HR IV Last administered on 08/08/19at 20:40; Start 07/29/19 at 11:00; Stop 08/09/19 at 08:10; Status DC Sodium Chloride 90 meq/Potassium Phosphate 15 mmol/ Magnesium Sulfate 12 meq/Calcium Gluconate 15 meq/ Multivitamins 10 ml/Chromium/ Copper/Manganese/ Seleni/Zn 0.5 ml/ Insulin Human Regular 30 unit/ Total Parenteral Nutrition/Amino Acids/Dextrose/ Fat Emulsion Intravenous 1,400 ml @ 58.333 mls/ hr TPN CONT IV Last administered on 07/29/19at 21:49; Start 07/29/19 at 22:00; Stop 07/30/19 at 21:59; Status DC Sodium Chloride 90 meq/Potassium Phosphate 15 mmol/ Magnesium Sulfate 12 meq/Calcium Gluconate 15 meq/ Multivitamins 10 ml/Chromium/ Copper/Manganese/ Seleni/Zn 0.5 ml/ Insulin Human Regular 40 unit/ Total Parenteral Nutrition/Amino Acids/Dextrose/ Fat Emulsion Intravenous 1,400 ml @ 58.333 mls/ hr TPN CONT IV Last administered on 07/30/19at 21:21; Start 07/30/19 at 22:00; Stop 07/31/19 at 21:59; Status DC Sodium Chloride 1,000 ml @ 1,000 mls/hr Q1H PRN IV hypotension; Start 07/30/19 at 13:26; Stop 07/30/19 at 19:25; Status DC Albumin Human 200 ml @ 200 mls/hr 1X PRN PRN IV Hypotension Last administered on 07/30/19at 15:00; Start 07/30/19 at 13:30; Stop 07/30/19 at 19:29; Status DC Sodium Chloride (Normal Saline Flush) 10 ml 1X PRN PRN IV AP catheter pack; Start 07/30/19 at 13:30; Stop 07/31/19 at 13:29; Status DC Sodium Chloride (Normal Saline Flush) 10 ml 1X PRN PRN IV LEGAL SUPPORT SPECIALIST catheter pack; Start 07/30/19 at 13:30; Stop 07/31/19 at 13:29; Status DC Sodium Chloride 1,000 ml @ 400 mls/hr Q2H30M PRN IV PATENCY; Start 07/30/19 at 13:26; Stop 07/31/19 at 01:25; Status DC Info (PHARMACY MONITORING -- do not chart) 1 each PRN DAILY PRN MC SEE COMMENTS; Start 07/30/19 at 13:30; Stop 07/30/19 at 13:33; Status DC Info (PHARMACY MONITORING -- do not chart) 1 each PRN DAILY PRN MC SEE COMMENTS; Start 07/30/19 at 13:30; Stop 07/30/19 at 13:34; Status DC Sodium Chloride 90 meq/Potassium Phosphate 19 mmol/ Magnesium Sulfate 12 meq/Calcium Gluconate 15 meq/ Multivitamins 10 ml/Chromium/ Copper/Manganese/ Seleni/Zn 0.5 ml/ Insulin Human Regular 40 unit/ Total Parenteral Nutrition/Amino Acids/Dextrose/ Fat Emulsion Intravenous 1,400 ml @ 58.333 mls/ hr TPN CONT IV Last administered on 07/31/19at 21:54; Start 07/31/19 at 22:00; Stop 08/01/19 at 21:59; Status DC Sodium Chloride 1,000 ml @ 1,000 mls/hr Q1H PRN IV hypotension; Start 08/01/19 at 09:35; Stop 08/01/19 at 15:34; Status DC Albumin Human 200 ml @ 200 mls/hr 1X PRN PRN IV Hypotension; Start 08/01/19 at 09:45; Stop 08/01/19 at 15:44; Status DC Diphenhydramine HCl (Benadryl) 25 mg 1X PRN PRN IV ITCHING; Start 08/01/19 at 09:45; Stop 08/02/19 at 09:44; Status DC Diphenhydramine HCl (Benadryl) 25 mg 1X PRN PRN IV ITCHING; Start 08/01/19 at 09:45; Stop 08/02/19 at 09:44; Status DC Sodium Chloride 1,000 ml @ 400 mls/hr Q2H30M PRN IV PATENCY; Start 08/01/19 at 09:35; Stop 08/01/19 at 21:34; Status DC Info (PHARMACY MONITORING -- do not chart) 1 each PRN DAILY PRN MC SEE COMMENTS; Start 08/01/19 at 09:45; Status Cancel Sodium Chloride 100 meq/Potassium Phosphate 19 mmol/ Magnesium Sulfate 12 meq/Calcium Gluconate 15 meq/ Multivitamins 10 ml/Chromium/ Copper/Manganese/ Seleni/Zn 0.5 ml/ Insulin Human Regular 40 unit/ Potassium Chloride 20 meq/ Total Parenteral Nutrition/Amino Acids/Dextrose/ Fat Emulsion Intravenous 1,400 ml @ 58.333 mls/ hr TPN CONT IV Last administered on 08/01/19at 22:02; Start 08/01/19 at 22:00; Stop 08/02/19 at 21:59; Status DC Furosemide (Lasix) 40 mg 1X ONCE IVP Last administered on 08/01/19at 14:39; Start 08/01/19 at 14:30; Stop 08/01/19 at 14:31; Status DC Metronidazole 100 ml @ 100 mls/hr Q8HRS IV Last administered on 08/09/19at 06:04; Start 08/02/19 at 10:00; Stop 08/09/19 at 08:10; Status DC Sodium Chloride 1,000 ml @ 1,000 mls/hr Q1H PRN IV hypotension; Start 08/02/19 at 08:00; Stop 08/02/19 at 13:59; Status DC Albumin Human 200 ml @ 200 mls/hr 1X PRN PRN IV Hypotension; Start 08/02/19 at 08:00; Stop 08/02/19 at 13:59; Status DC Sodium Chloride 1,000 ml @ 400 mls/hr Q2H30M PRN IV PATENCY; Start 08/02/19 at 08:00; Stop 08/02/19 at 19:59; Status DC Info (PHARMACY MONITORING -- do not chart) 1 each PRN DAILY PRN MC SEE COMMENTS; Start 08/02/19 at 11:30; Status UNV Info (PHARMACY MONITORING -- do not chart) 1 each PRN DAILY PRN MC SEE COMMENTS; Start 08/02/19 at 11:30; Stop 08/04/19 at 12:13; Status DC Sodium Chloride 100 meq/Potassium Phosphate 19 mmol/ Magnesium Sulfate 12 meq/Calcium Gluconate 15 meq/ Multivitamins 10 ml/Chromium/ Copper/Manganese/ Seleni/Zn 0.5 ml/ Insulin Human Regular 40 unit/ Potassium Chloride 20 meq/ Total Parenteral Nutrition/Amino Acids/Dextrose/ Fat Emulsion Intravenous 1,400 ml @ 58.333 mls/ hr TPN CONT IV Last administered on 08/02/19at 21:52; Start 08/02/19 at 22:00; Stop 08/03/19 at 21:59; Status DC Sodium Chloride (Normal Saline Flush) 10 ml QSHIFT PRN IV AFTER MEDS AND BLOOD DRAWS; Start 08/02/19 at 15:00; Stop 08/30/19 at 11:27; Status DC Sodium Chloride (Normal Saline Flush) 10 ml PRN Q5MIN PRN IV AFTER MEDS AND BLOOD DRAWS; Start 08/02/19 at 15:00 Sodium Chloride (Normal Saline Flush) 20 ml PRN Q5MIN PRN IV AFTER MEDS AND BLOOD DRAWS; Start 08/02/19 at 15:00 Sodium Chloride 100 meq/Potassium Phosphate 19 mmol/ Magnesium Sulfate 12 meq/Calcium Gluconate 15 meq/ Multivitamins 10 ml/Chromium/ Copper/Manganese/ Seleni/Zn 0.5 ml/ Insulin Human Regular 40 unit/ Potassium Chloride 20 meq/ Total Parenteral Nutrition/Amino Acids/Dextrose/ Fat Emulsion Intravenous 1,400 ml @ 58.333 mls/ hr TPN CONT IV Last administered on 08/03/19at 21:20; Start 08/03/19 at 22:00; Stop 08/04/19 at 21:59; Status DC Lidocaine HCl (Buffered Lidocaine 1%) 3 ml STK-MED ONCE .ROUTE ; Start 08/03/19 at 13:16; Stop 08/03/19 at 13:16; Status DC Lidocaine HCl (Buffered Lidocaine 1%) 6 ml 1X ONCE INJ Last administered on 08/03/19at 13:45; Start 08/03/19 at 13:30; Stop 08/03/19 at 13:31; Status DC Albumin Human 100 ml @ 100 mls/hr 1X ONCE IV Last administered on 08/03/19at 15:41; Start 08/03/19 at 15:00; Stop 08/03/19 at 15:59; Status DC Albumin Human 50 ml @ 50 mls/hr 1X ONCE IV Last administered on 08/03/19at 15:00; Start 08/03/19 at 15:00; Stop 08/03/19 at 15:59; Status DC Info (PHARMACY MONITORING -- do not chart) 1 each PRN DAILY PRN MC SEE COMMENTS; Start 08/04/19 at 11:30; Status Cancel Info (PHARMACY MONITORING -- do not chart) 1 each PRN DAILY PRN MC SEE COMMENTS; Start 08/04/19 at 11:30; Status UNV Sodium Chloride 100 meq/Potassium Phosphate 10 mmol/ Magnesium Sulfate 12 meq/Calcium Gluconate 15 meq/ Multivitamins 10 ml/Chromium/ Copper/Manganese/ Seleni/Zn 0.5 ml/ Insulin Human Regular 35 unit/ Potassium Chloride 20 meq/ Total Parenteral Nutrition/Amino Acids/Dextrose/ Fat Emulsion Intravenous 1,400 ml @ 58.333 mls/ hr TPN CONT IV Last administered on 08/04/19at 22:10; Start 08/04/19 at 22:00; Stop 08/05/19 at 21:59; Status DC Sodium Chloride 100 meq/Potassium Phosphate 5 mmol/ Magnesium Sulfate 12 meq/Calcium Gluconate 15 meq/ Multivitamins 10 ml/Chromium/ Copper/Manganese/ Seleni/Zn 0.5 ml/ Insulin Human Regular 35 unit/ Potassium Chloride 20 meq/ Total Parenteral Nutrition/Amino Acids/Dextrose/ Fat Emulsion Intravenous 1,400 ml @ 58.333 mls/ hr TPN CONT IV Last administered on 08/05/19at 22:59; Start 08/05/19 at 22:00; Stop 08/06/19 at 21:59; Status DC Sodium Chloride 1,000 ml @ 1,000 mls/hr Q1H PRN IV hypotension; Start 08/06/19 at 08:27; Stop 08/06/19 at 14:26; Status DC Albumin Human 200 ml @ 200 mls/hr 1X PRN PRN IV Hypotension Last administered on 08/06/19at 09:18; Start 08/06/19 at 08:30; Stop 08/06/19 at 14:29; Status DC Sodium Chloride 1,000 ml @ 400 mls/hr Q2H30M PRN IV PATENCY; Start 08/06/19 at 08:27; Stop 08/06/19 at 20:26; Status DC Info (PHARMACY MONITORING -- do not chart) 1 each PRN DAILY PRN MC SEE COMMENTS; Start 08/06/19 at 08:30; Status Cancel Info (PHARMACY MONITORING -- do not chart) 1 each PRN DAILY PRN MC SEE COMMENTS; Start 08/06/19 at 08:30; Stop 08/14/19 at 13:10; Status DC Sodium Chloride 100 meq/Potassium Chloride 40 meq/ Magnesium Sulfate 15 meq/Calcium Gluconate 15 meq/ Multivitamins 10 ml/Chromium/ Copper/Manganese/ Seleni/Zn 0.5 ml/ Insulin Human Regular 35 unit/ Total Parenteral Nutrition/Amino Acids/Dextrose/ Fat Emulsion Intravenous 1,400 ml @ 58.333 mls/ hr TPN CONT IV Last administered on 08/06/19at 22:00; Start 08/06/19 at 22:00; Stop 08/07/19 at 21:59; Status DC Potassium Chloride/Water 100 ml @ 100 mls/hr 1X ONCE IV Last administered on 08/06/19at 17:28; Start 08/06/19 at 14:45; Stop 08/06/19 at 15:44; Status DC Sodium Chloride 100 meq/Potassium Chloride 40 meq/ Magnesium Sulfate 15 meq/Calcium Gluconate 15 meq/ Multivitamins 10 ml/Chromium/ Copper/Manganese/ Seleni/Zn 0.5 ml/ Insulin Human Regular 35 unit/ Total Parenteral Nutrition/Amino Acids/Dextrose/ Fat Emulsion Intravenous 1,400 ml @ 58.333 mls/ hr TPN CONT IV Last administered on 08/07/19at 22:46; Start 08/07/19 at 22:00; Stop 08/08/19 at 21:59; Status DC Sodium Chloride 100 meq/Potassium Chloride 40 meq/ Magnesium Sulfate 20 meq/Calcium Gluconate 15 meq/ Multivitamins 10 ml/Chromium/ Copper/Manganese/ Seleni/Zn 0.5 ml/ Insulin Human Regular 35 unit/ Total Parenteral Nutrition/Am tristen Acids/Dextrose/ Fat Emulsion Intravenous 1,400 ml @ 58.333 mls/ hr TPN CONT IV Last administered on 08/08/19at 22:31; Start 08/08/19 at 22:00; Stop 08/09/19 at 21:59; Status DC Fentanyl Citrate (Fentanyl 2ml Vial) 50 mcg PRN Q2HR PRN IVP PAIN Last administered on 08/15/19at 13:32; Start 08/08/19 at 21:00; Stop 08/16/19 at 12:53; Status DC Fentanyl Citrate (Fentanyl 2ml Vial) 25 mcg PRN Q2HR PRN IVP PAIN; Start 08/08/19 at 21:00; Stop 08/16/19 at 12:54; Status DC Enoxaparin Sodium (Lovenox 100mg Syringe) 100 mg Q12HR SQ ; Start 08/09/19 at 21:00; Status UNV Amino Acids/ Glycerin/ Electrolytes 1,000 ml @ 75 mls/hr [id number] IV ; Start 08/08/19 at 21:15; Status UNV Sodium Chloride 1,000 ml @ 1,000 mls/hr Q1H PRN IV hypotension; Start 08/09/19 at 07:56; Stop 08/09/19 at 13:55; Status DC Albumin Human 200 ml @ 200 mls/hr 1X PRN PRN IV Hypotension Last administered on 08/09/19at 08:40; Start 08/09/19 at 08:00; Stop 08/09/19 at 13:59; Status DC Sodium Chloride 1,000 ml @ 400 mls/hr Q2H30M PRN IV PATENCY; Start 08/09/19 at 07:56; Stop 08/09/19 at 19:55; Status DC Info (PHARMACY MONITORING -- do not chart) 1 each PRN DAILY PRN MC SEE COMMENTS; Start 08/09/19 at 08:00; Status UNV Info (PHARMACY MONITORING -- do not chart) 1 each PRN DAILY PRN MC SEE COMMENTS; Start 08/09/19 at 08:00; Status UNV Daptomycin 430 mg/ Sodium Chloride 50 ml @ 100 mls/hr Q24H IV Last administered on 08/09/19at 12:35; Start 08/09/19 at 09:00; Stop 08/09/19 at 12:49; Status DC Sodium Chloride 100 meq/Potassium Chloride 40 meq/ Magnesium Sulfate 20 meq/Calcium Gluconate 15 meq/ Multivitamins 10 ml/Chromium/ Copper/Manganese/ Seleni/Zn 0.5 ml/ Insulin Human Regular 35 unit/ Total Parenteral Nutrition/Amino Acids/Dextrose/ Fat Emulsion Intravenous 1,400 ml @ 58.333 mls/ hr TPN CONT IV Last administered on 08/09/19at 21:26; Start 08/09/19 at 22:00; Stop 08/10/19 at 21:59; Status DC Daptomycin 430 mg/ Sodium Chloride 50 ml @ 100 mls/hr Q48H IV ; Start 08/11/19 at 09:00; Stop 08/10/19 at 11:55; Status DC Sodium Chloride 100 meq/Potassium Chloride 40 meq/ Magnesium Sulfate 20 meq/Calcium Gluconate 15 meq/ Multivitamins 10 ml/Chromium/ Copper/Manganese/ Seleni/Zn 0.5 ml/ Insulin Human Regular 35 unit/ Total Parenteral Nutrition/Amino Acids/Dextrose/ Fat Emulsion Intravenous 1,400 ml @ 58.333 mls/ hr TPN CONT IV Last administered on 08/10/19at 22:27; Start 08/10/19 at 22:00; Stop 08/11/19 at 21:59; Status DC Daptomycin 430 mg/ Sodium Chloride 50 ml @ 100 mls/hr Q24H IV Last administered on 08/12/19at 15:07; Start 08/10/19 at 13:00; Stop 08/13/19 at 13:15; Status DC Sodium Chloride 100 meq/Potassium Chloride 40 meq/ Magnesium Sulfate 20 meq/Calcium Gluconate 10 meq/ Multivitamins 10 ml/Chromium/ Copper/Manganese/ Seleni/Zn 0.5 ml/ Insulin Human Regular 35 unit/ Total Parenteral Nutrition/Amino Acids/Dextrose/ Fat Emulsion Intravenous 1,400 ml @ 58.333 mls/ hr TPN CONT IV Last administered on 08/12/19at 00:06; Start 08/11/19 at 22:00; Stop 08/12/19 at 21:59; Status DC Alteplase, Recombinant (Cathflo For Central Catheter Clearance) 1 mg 1X ONCE INT CAT Last administered on 08/12/19at 11:44; Start 08/12/19 at 10:45; Stop 08/12/19 at 10:46; Status DC Ondansetron HCl (Zofran) 4 mg PRN Q6HRS PRN IV NAUSEA/VOMITING; Start 08/15/19 at 07:00; Stop 08/16/19 at 06:59; Status DC Fentanyl Citrate (Fentanyl 2ml Vial) 25 mcg PRN Q5MIN PRN IV MILD PAIN 1-3; Start 08/15/19 at 07:00; Stop 08/16/19 at 06:59; Status DC Fentanyl Citrate (Fentanyl 2ml Vial) 50 mcg PRN Q5MIN PRN IV MODERATE TO SEVERE PAIN Last administered on 08/15/19at 10:17; Start 08/15/19 at 07:00; Stop 08/16/19 at 06:59; Status DC Ringer's Solution 1,000 ml @ 30 mls/hr Q24H IV ; Start 08/15/19 at 07:00; Stop 08/15/19 at 18:59; Status DC Lidocaine HCl (Xylocaine-Mpf 1% 2ml Vial) 2 ml PRN 1X PRN ID PRIOR TO IV START; Start 08/15/19 at 07:00; Stop 08/16/19 at 06:59; Status DC Prochlorperazine Edisylate (Compazine) 5 mg PACU PRN PRN IV NAUSEA, MRX1; Start 08/15/19 at 07:00; Stop 08/16/19 at 06:59; Status DC Sodium Acetate 50 meq/Potassium Acetate 55 meq/ Magnesium Sulfate 20 meq/Calcium Gluconate 10 meq/ Multivitamins 10 ml/Chromium/ Copper/Manganese/ Seleni/Zn 0.5 ml/ Insulin Human Regular 35 unit/ Total Parenteral Nutrition/Amino Acids/Dextrose/ Fat Emulsion Intravenous 1,400 ml @ 58.333 mls/ hr TPN CONT IV ; Start 08/12/19 at 22:00; Stop 08/12/19 at 14:15; Status DC Sodium Acetate 50 meq/Potassium Acetate 55 meq/ Magnesium Sulfate 20 meq/Calcium Gluconate 10 meq/ Multivitamins 10 ml/Chromium/ Copper/Manganese/ Seleni/Zn 0.5 ml/ Insulin Human Regular 35 unit/ Total Parenteral Nutrition/Amino Acids/Dextrose/ Fat Emulsion Intravenous 1,800 ml @ 75 mls/hr TPN CONT IV Last administered on 08/12/19at 22:38; Start 08/12/19 at 22:00; Stop 08/13/19 at 21:59; Status DC Sodium Chloride 1,000 ml @ 1,000 mls/hr Q1H PRN IV hypotension; Start 08/12/19 at 15:31; Stop 08/12/19 at 21:30; Status DC Diphenhydramine HCl (Benadryl) 25 mg 1X PRN PRN IV ITCHING; Start 08/12/19 at 15:45; Stop 08/13/19 at 15:44; Status DC Diphenhydramine HCl (Benadryl) 25 mg 1X PRN PRN IV ITCHING; Start 08/12/19 at 15:45; Stop 08/13/19 at 15:44; Status DC Sodium Chloride 1,000 ml @ 400 mls/hr Q2H30M PRN IV PATENCY; Start 08/12/19 at 15:31; Stop 08/13/19 at 03:30; Status DC Info (PHARMACY MONITORING -- do not chart) 1 each PRN DAILY PRN MC SEE COMMENTS; Start 08/12/19 at 15:45; Stop 09/13/19 at 14:14; Status DC Sodium Acetate 50 meq/Potassium Acetate 55 meq/ Magnesium Sulfate 20 meq/Calcium Gluconate 10 meq/ Multivitamins 10 ml/Chromium/ Copper/Manganese/ Seleni/Zn 0.5 ml/ Insulin Human Regular 35 unit/ Total Parenteral Nutrition/Amino Acids/Dextrose/ Fat Emulsion Intravenous 1,800 ml @ 75 mls/hr TPN CONT IV Last administered on 08/13/19at 22:03; Start 08/13/19 at 22:00; Stop 08/14/19 at 21:59; Status DC Daptomycin 430 mg/ Sodium Chloride 50 ml @ 100 mls/hr Q24H IV Last administered on 08/18/19at 13:00; Start 08/13/19 at 13:00; Stop 08/18/19 at 20:58; Status DC Heparin Sodium (Porcine) 1000 unit/Sodium Chloride 1,001 ml @ 1,001 mls/hr 1X ONCE IRR ; Start 08/15/19 at 06:00; Stop 08/15/19 at 06:59; Status DC Potassium Acetate 55 meq/Magnesium Sulfate 20 meq/ Calcium Gluconate 10 meq/ Multivitamins 10 ml/Chromium/ Copper/Manganese/ Seleni/Zn 0.5 ml/ Insulin Human Regular 35 unit/ Total Parenteral Nutrition/Amino Acids/Dextrose/ Fat Emulsion Intravenous 1,920 ml @ 80 mls/hr TPN CONT IV Last administered on 08/14/19at 22:10; Start 08/14/19 at 22:00; Stop 08/15/19 at 21:59; Status DC Dexamethasone Sodium Phosphate (Decadron) 4 mg STK-MED ONCE .ROUTE ; Start 08/15/19 at 10:56; Stop 08/15/19 at 10:57; Status DC Ondansetron HCl (Zofran) 4 mg STK-MED ONCE .ROUTE ; Start 08/15/19 at 10:56; Stop 08/15/19 at 10:57; Status DC Rocuronium [place] (Zemuron) 50 mg STK-MED ONCE .ROUTE ; Start 08/15/19 at 10:56; Stop 08/15/19 at 10:57; Status DC Fentanyl Citrate (Fentanyl 2ml Vial) 100 mcg STK-MED ONCE .ROUTE ; Start 08/15/19 at 10:56; Stop 08/15/19 at 10:57; Status DC Bupivacaine HCl/ Epinephrine Bitart (Sensorcain-Epi 0.5%-1:[id number] Mpf) 30 ml STK-MED ONCE .ROUTE Last administered on 08/15/19at 12:01; Start 08/15/19 at 10:58; Stop 08/15/19 at 10:58; Status DC Cellulose (Surgicel Hemostat 2x14) 1 each STK-MED ONCE .ROUTE ; Start 08/15/19 a t 10:58; Stop 08/15/19 at 10:59; Status DC Iohexol (Omnipaque 300 Mg/ml) 50 ml STK-MED ONCE .ROUTE ; Start 08/15/19 at 10:58; Stop 08/15/19 at 10:59; Status DC Cellulose (Surgicel Hemostat 4x8) 1 each STK-MED ONCE .ROUTE ; Start 08/15/19 at 10:58; Stop 08/15/19 at 10:59; Status DC Bisacodyl (Dulcolax Supp) 10 mg STK-MED ONCE .ROUTE ; Start 08/15/19 at 10:59; Stop 08/15/19 at 10:59; Status DC Heparin Sodium (Porcine) 1000 unit/Sodium Chloride 1,001 ml @ 1,001 mls/hr 1X ONCE IRR ; Start 08/15/19 at 12:00; Stop 08/15/19 at 12:59; Status DC Propofol 20 ml @ As Directed STK-MED ONCE IV ; Start 08/15/19 at 11:05; Stop 08/15/19 at 11:05; Status DC Sevoflurane (Ultane) 90 ml STK-MED ONCE IH ; Start 08/15/19 at 11:05; Stop 08/15/19 at 11:05; Status DC Sevoflurane (Ultane) 60 ml STK-MED ONCE IH ; Start 08/15/19 at 12:26; Stop 08/15/19 at 12:27; Status DC Propofol 20 ml @ As Directed STK-MED ONCE IV ; Start 08/15/19 at 12:26; Stop 08/15/19 at 12:27; Status DC Phenylephrine HCl (PHENYLEPHRINE in 0.9% NACL PF) 1 mg STK-MED ONCE IV ; Start 08/15/19 at 12:34; Stop 08/15/19 at 12:34; Status DC Heparin Sodium (Porcine) (Heparin Sodium) 5,000 unit Q12HR SQ Last administered on 08/24/19at 20:57; Start 08/15/19 at 21:00; Stop 08/25/19 at 09:59; Status DC Sodium Chloride (Normal Saline Flush) 3 ml QSHIFT PRN IV AFTER MEDS AND BLOOD DRAWS; Start 08/15/19 at 13:45 Naloxone HCl (Narcan) 0.4 mg PRN Q2MIN PRN IV SEE INSTRUCTIONS Last administered on 09/24/19at 15:15; Start 08/15/19 at 13:45 Sodium Chloride 1,000 ml @ 25 mls/hr Q24H IV Last administered on 09/13/19at 13:37; Start 08/15/19 at 13:37; Stop 09/16/19 at 13:09; Status DC Naloxone HCl (Narcan) 0.4 mg PRN Q2MIN PRN IV SEE INSTRUCTIONS; Start 08/15/19 at 14:30; Status UNV Sodium Chloride 1,000 ml @ 25 mls/hr Q24H IV ; Start 08/15/19 at 14:30; Status UNV Hydromorphone HCl 30 ml @ 0 mls/hr CONT PRN PRN IV PER PROTOCOL Last administered on 08/20/19at 16:08; Start 08/15/19 at 14:30; Stop 08/22/19 at 08:55; Status DC Potassium Acetate 55 meq/Magnesium Sulfate 20 meq/ Calcium Gluconate 10 meq/ Multivitamins 10 ml/Chromium/ Copper/Manganese/ Seleni/Zn 0.5 ml/ Insulin Human Regular 35 unit/ Total Parenteral Nutrition/Amino Acids/Dextrose/ Fat Emulsion Intravenous 1,920 ml @ 80 mls/hr TPN CONT IV Last administered on 08/15/19at 22:01; Start 08/15/19 at 22:00; Stop 08/16/19 at 21:59; Status DC Bumetanide (Bumex) 2 mg [id number] IV Last administered on 08/19/19at 13:50; Start 08/16/19 at 14:00; Stop 08/20/19 at 14:10; Status DC Meropenem 1 gm/ Sodium Chloride 100 ml @ 200 mls/hr Q8HRS IV Last administered on 09/09/19at 05:53; Start 08/16/19 at 14:00; Stop 09/09/19 at 09:31; Status DC Potassium Acetate 55 meq/Magnesium Sulfate 20 meq/ Calcium Gluconate 10 meq/ Multivitamins 10 ml/Chromium/ Copper/Manganese/ Seleni/Zn 0.5 ml/ Insulin Human Regular 35 unit/ Total Parenteral Nutrition/Amino Acids/Dextrose/ Fat Emulsion Intravenous 1,920 ml @ 80 mls/hr TPN CONT IV Last administered on 08/16/19at 22:02; Start 08/16/19 at 22:00; Stop 08/17/19 at 21:59; Status DC Hydromorphone HCl (Dilaudid Standard [employer]RECEIVING ASSOCIATE) 12 mg STK-MED ONCE IV ; Start 08/15/19 at 14:35; Stop 08/16/19 at 13:53; Status DC Artificial Tears (Artificial Tears) 1 drop PRN Q15MIN PRN OU DRY EYE Last administered on 10/03/19at 03:38; Start 08/17/19 at 05:30 Hydromorphone HCl (Dilaudid Standard [employer]CEIVING ASSOCIATE) 12 mg STK-MED ONCE IV ; Start 08/16/19 at 12:05; Stop 08/17/19 at 09:15; Status DC Potassium Acetate 65 meq/Magnesium Sulfate 20 meq/ Calcium Gluconate 10 meq/ Multivitamins 10 ml/Chromium/ Copper/Manganese/ Seleni/Zn 0.5 ml/ Insulin Human Regular 30 unit/ Total Parenteral Nutrition/Amino Acids/Dextrose/ Fat Emulsion Intravenous 1,920 ml @ 80 mls/hr TPN CONT IV Last administered on 08/17/19at 22:22; Start 08/17/19 at 22:00; Stop 08/18/19 at 21:59; Status DC Cyclobenzaprine HCl (Flexeril) 10 mg PRN Q6HRS PRN PO MUSCLE SPASMS; Start 08/18/19 at 10:45 Potassium Acetate 55 meq/Magnesium Sulfate 20 meq/ Calcium Gluconate 10 meq/ Multivitamins 10 ml/Chromium/ Copper/Manganese/ Seleni/Zn 0.5 ml/ Insulin Human Regular 30 unit/ Total Parenteral Nutrition/Amino Acids/Dextrose/ Fat Emulsion Intravenous 1,920 ml @ 80 mls/hr TPN CONT IV Last administered on 08/19/19at 0 1:00; Start 08/18/19 at 22:00; Stop 08/19/19 at 21:59; Status DC Magnesium Sulfate 50 ml @ 25 mls/hr 1X ONCE IV Last administered on 08/18/19at 17:18; Start 08/18/19 at 12:45; Stop 08/18/19 at 14:44; Status DC Potassium Chloride/Water 100 ml @ 100 mls/hr 1X ONCE IV Last administered on 08/19/19at 11:27; Start 08/19/19 at 12:00; Stop 08/19/19 at 12:59; Status DC Hydromorphone HCl (Dilaudid Standard [employer]) 12 mg STK-MED ONCE IV ; Start 08/17/19 at 10:50; Stop 08/19/19 at 11:02; Status DC Hydromorphone HCl (Dilaudid Standard [employer]ING [employer]) 12 mg STK-MED ONCE IV ; Start 08/18/19 at 13:47; Stop 08/19/19 at 11:03; Status DC Potassium Acetate 30 meq/Magnesium Sulfate 20 meq/ Calcium Gluconate 10 meq/ Multivitamins 10 ml/Chromium/ Copper/Manganese/ Seleni/Zn 0.5 ml/ Insulin Human Regular 30 unit/ Potassium Chloride 30 meq/ Total Parenteral Nutrition/Amino Acids/Dextrose/ Fat Emulsion Intravenous 1,920 ml @ 80 mls/hr TPN CONT IV Last administered on 08/19/19at 22:34; Start 08/19/19 at 22:00; Stop 08/20/19 at 21:59; Status DC Potassium Chloride/Water 100 ml @ 100 mls/hr Q1H IV Last administered on 08/20/19at 13:05; Start 08/20/19 at 07:00; Stop 08/20/19 at 10:59; Status DC Magnesium Sulfate 50 ml @ 25 mls/hr 1X ONCE IV Last administered on 08/20/19at 10:34; Start 08/20/19 at 10:30; Stop 08/20/19 at 12:29; Status DC Potassium Chloride 75 meq/ Magnesium Sulfate 20 meq/Calcium Gluconate 10 meq/ Multivitamins 10 ml/Chromium/ Copper/Manganese/ Seleni/Zn 0.5 ml/ Insulin Human Regular 30 unit/ Total Parenteral Nutrition/Amino Acids/Dextrose/ Fat Emulsion Intravenous 1,920 ml @ 80 mls/hr TPN CONT IV Last administered on 08/20/19at 21:51; Start 08/20/19 at 22:00; Stop 08/21/19 at 22:00; Status DC Potassium Chloride 75 meq/ Magnesium Sulfate 20 meq/Calcium Gluconate 10 meq/ Multivitamins 10 ml/Chromium/ Copper/Manganese/ Seleni/Zn 0.5 ml/ Insulin Human Regular 25 unit/ Total Parenteral Nutrition/Amino Acids/Dextrose/ Fat Emulsion Intravenous 1,920 ml @ 80 mls/hr TPN CONT IV Last administered on 08/21/19at 22:04; Start 08/21/19 at 22:00; Stop 08/22/19 at 21:59; Status DC Hydromorphone HCl (Dilaudid) 0.4 mg PRN Q4HRS PRN IVP PAIN Last administered on 08/22/19at 10:57; Start 08/22/19 at 09:00; Stop 08/22/19 at 18:59; Status DC Micafungin Sodium 100 mg/Dextrose 100 ml @ 100 mls/hr Q24H IV Last admin istered on 09/13/19at 12:17; Start 08/22/19 at 11:00; Stop 09/14/19 at 09:59; Status DC Daptomycin 485 mg/ Sodium Chloride 50 ml @ 100 mls/hr Q24H IV Last administered on 08/29/19at 13:10; Start 08/22/19 at 11:00; Stop 08/30/19 at 07:44; Status DC Potassium Chloride 75 meq/ Magnesium Sulfate 15 meq/Calcium Gluconate 8 meq/ Multivitamins 10 ml/Chromium/ Copper/Manganese/ Seleni/Zn 0.5 ml/ Insulin Human Regular 25 unit/ Total Parenteral Nutrition/Amino Acids/Dextrose/ Fat Emulsion Intravenous 1,920 ml @ 80 mls/hr TPN CONT IV Last administered on 08/22/19at 23:08; Start 08/22/19 at 22:00; Stop 08/23/19 at 21:59; Status DC Haloperidol Lactate (Haldol Inj) 3 mg 1X ONCE IVP Last administered on 08/22/19at 14:37; Start 08/22/19 at 14:30; Stop 08/22/19 at 14:31; Status DC Hydromorphone HCl (Dilaudid) 1 mg PRN Q4HRS PRN IVP PAIN Last administered on 09/05/19at 06:25; Start 08/22/19 at 19:00; Stop 09/05/19 at 17:10; Status DC Potassium Chloride 75 meq/ Magnesium Sulfate 15 meq/Calcium Gluconate 8 meq/ Multivitamins 10 ml/Chromium/ Copper/Manganese/ Seleni/Zn 0.5 ml/ Insulin Human Regular 20 unit/ Total Parenteral Nutrition/Amino Acids/Dextrose/ Fat Emulsion Intravenous 1,920 ml @ 80 mls/hr TPN CONT IV Last administered on 08/23/19at 22:10; Start 08/23/19 at 22:00; Stop 08/24/19 at 21:59; Status DC Lidocaine HCl (Buffered Lidocaine 1%) 3 ml STK-MED ONCE .ROUTE ; Start 08/24/19 at 11:31; Stop 08/24/19 at 11:31; Status DC Lidocaine HCl (Buffered Lidocaine 1%) 3 ml STK-MED ONCE .ROUTE ; Start 08/24/19 at 12:28; Stop 08/24/19 at 12:29; Status DC Lidocaine HCl (Buffered Lidocaine 1%) 6 ml 1X ONCE INJ Last administered on 08/24/19at 12:53; Start 08/24/19 at 12:45; Stop 08/24/19 at 12:46; Status DC Potassium Chloride 75 meq/ Magnesium Sulfate 15 meq/Calcium Gluconate 8 meq/ Multivitamins 10 ml/Chromium/ Copper/Manganese/ Seleni/Zn 0.5 ml/ Insulin Human Regular 20 unit/ Total Parenteral Nutrition/Amino Acids/Dextrose/ Fat Emulsion Intravenous 1,920 ml @ 80 mls/hr TPN CONT IV Last administered on 08/24/19at 22:00; Start 08/24/19 at 22:00; Stop 08/25/19 at 21:59; Status DC Potassium Chloride 75 meq/ Magnesium Sulfate 15 meq/Calcium Gluconate 8 meq/ Multivitamins 10 ml/Chromium/ Copper/Manganese/ Seleni/Zn 0.5 ml/ Insulin Human Regular 15 unit/ Total Parenteral Nutrition/Amino Acids/Dextrose/ Fat Emulsion Intravenous 1,920 ml @ 80 mls/hr TPN CONT IV Last administered on 08/25/19at 22:28; Start 08/25/19 at 22:00; Stop 08/26/19 at 21:59; Status DC Vecuronium [place] (Norcuron Bolus) 6 mg PRN Q6HRS PRN IV VENT ASYNCHRONY; Start 08/25/19 at 19:15; Stop 08/25/19 at 19:35; Status DC Bumetanide (Bumex) 2 mg 1X ONCE IV Last administered on 08/25/19at 22:09; Start 08/25/19 at 19:45; Stop 08/25/19 at 19:46; Status DC Lidocaine HCl (Buffered Lidocaine 1%) 3 ml STK-MED ONCE .ROUTE ; Start 08/26/19 at 07:59; Stop 08/26/19 at 07:59; Status DC Midazolam HCl (Versed) 5 mg STK-MED ONCE .ROUTE ; Start 08/26/19 at 08:36; Stop 08/26/19 at 08:36; Status DC Fentanyl Citrate (Fentanyl 5ml Vial) 250 mcg STK-MED ONCE .ROUTE ; Start 08/26/19 at 08:36; Stop 08/26/19 at 08:37; Status DC Lidocaine HCl (Buffered Lidocaine 1%) 3 ml 1X ONCE IJ Last administered on 08/26/19at 09:30; Start 08/26/19 at 09:15; Stop 08/26/19 at 09:16; Status DC Midazolam HCl (Versed) 5 mg 1X ONCE IV Last administered on 08/26/19at 09:30; Start 08/26/19 at 09:15; Stop 08/26/19 at 09:16; Status DC Fentanyl Citrate (Fentanyl 5ml Vial) 250 mcg 1X ONCE IV Last administered on 08/26/19at 09:30; Start 08/26/19 at 09:15; Stop 08/26/19 at 09:16; Status DC Bumetanide (Bumex) 2 mg DAILY IV Last administered on 09/05/19at 08:07; Start 08/26/19 at 10:00; Stop 09/05/19 at 17:15; Status DC Potassium Chloride 75 meq/ Magnesium Sulfate 15 meq/ Multivitamins 10 ml/Chromium/ Copper/Manganese/ Seleni/Zn 0.5 ml/ Insulin Human Regular 15 unit/ Total Parenteral Nutrition/Amino Acids/Dextrose/ Fat Emulsion Intravenous 1,920 ml @ 80 mls/hr TPN CONT IV Last administered on 08/26/19at 21:59; Start 08/26/19 at 22:00; Stop 08/27/19 at 21:59; Status DC Metoclopramide HCl (Reglan Vial) 10 mg PRN Q3HRS PRN IVP NAUSEA/VOMITING-3rd choice Last administered on 09/01/19at 04:25; Start 08/27/19 at 16:45 Potassium Chloride 75 meq/ Magnesium Sulfate 15 meq/ Multivitamins 10 ml/Chromium/ Copper/Manganese/ Seleni/Zn 0.5 ml/ Insulin Human Regular 15 unit/ Total Parenteral Nutrition/Amino Acids/Dextrose/ Fat Emulsion Intravenous 1,920 ml @ 80 mls/hr TPN CONT IV Last administered on 08/27/19at 22:41; Start 08/27/19 at 22:00; Stop 08/28/19 at 21:59; Status DC Magnesium Sulfate 50 ml @ 25 mls/hr 1X ONCE IV Last administered on 08/28/19at 10:44; Start 08/28/19 at 09:00; Stop 08/28/19 at 10:59; Status DC Potassium Chloride/Water 100 ml @ 100 mls/hr 1X ONCE IV Last administered on 08/28/19at 09:37; Start 08/28/19 at 09:00; Stop 08/28/19 at 09:59; Status DC Duloxetine HCl (Cymbalta) 30 mg DAILY PO Last administered on 08/29/19at 09:48; Start 08/28/19 at 14:00; Stop 08/31/19 at 10:25; Status DC Potassium Chloride 80 meq/ Magnesium Sulfate 20 meq/ Multivitamins 10 ml/Chromium/ Copper/Manganese/ Seleni/Zn 0.5 ml/ Insulin Human Regular 15 unit/ Total Parenteral Nutrition/Amino Acids/Dextrose/ Fat Emulsion Intravenous 1,920 ml @ 80 mls/hr TPN CONT IV Last administered on 08/28/19at 21:42; Start 08/28/19 at 22:00; Stop 08/29/19 at 21:59; Status DC Potassium Chloride 80 meq/ Magnesium Sulfate 20 meq/ Multivitamins 10 ml/Chromium/ Copper/Manganese/ Seleni/Zn 0.5 ml/ Insulin Human Regular 15 unit/ Total Parenteral Nutrition/Amino Acids/Dextrose/ Fat Emulsion Intravenous 1,920 ml @ 80 mls/hr TPN CONT IV Last administered on 08/29/19at 22:20; Start 08/29/19 at 22:00; Stop 08/30/19 at 21:59; Status DC Lidocaine HCl (Buffered Lidocaine 1%) 3 ml STK-MED ONCE .ROUTE ; Start 08/30/19 at 09:54; Stop 08/30/19 at 09:55; Status DC Hydromorphone HCl (Dilaudid Standard [employer]) 12 mg STK-MED ONCE IV ; Start 08/19/19 at 15:50; Stop 08/30/19 at 11:24; Status DC Potassium Chloride 80 meq/ Magnesium Sulfate 20 meq/ Multivitamins 10 ml/Chromium/ Copper/Manganese/ Seleni/Zn 0.5 ml/ Insulin Human Regular 15 unit/ Total Parenteral Nutrition/Amino Acids/Dextrose/ Fat Emulsion Intravenous 1,920 ml @ 80 mls/hr TPN CONT IV Last administered on 08/30/19at 21:40; Start 08/30/19 at 22:00; Stop 08/31/19 at 21:59; Status DC Lidocaine HCl (Buffered Lidocaine 1%) 6 ml 1X ONCE INJ Last administered on 08/30/19at 14:15; Start 08/30/19 at 14:15; Stop 08/30/19 at 14:16; Status DC Potassium Chloride 80 meq/ Magnesium Sulfate 20 meq/ Multivitamins 10 ml/Chromium/ Copper/Manganese/ Seleni/Zn 1 ml/ Insulin Human Regular 15 unit/ Total Parenteral Nutrition/Amino Acids/Dextrose/ Fat Emulsion Intravenous 1,920 ml @ 80 mls/hr TPN CONT IV Last administered on 08/31/19at 22:04; Start 08/31/19 at 22:00; Stop 09/01/19 at 21:59; Status DC Potassium Chloride/Water 100 ml @ 100 mls/hr 1X ONCE IV Last administered on 09/01/19at 11:34; Start 09/01/19 at 11:00; Stop 09/01/19 at 11:59; Status DC Potassium Chloride 90 meq/ Magnesium Sulfate 20 meq/ Multivitamins 10 ml/Chromium/ Copper/Manganese/ Seleni/Zn 1 ml/ Insulin Human Regular 15 unit/ Total Parenteral Nutrition/Amino Acids/Dextrose/ Fat Emulsion Intravenous 1,920 ml @ 80 mls/hr TPN CONT IV Last administered on 09/01/19at 22:57; Start 09/01/19 at 22:00; Stop 09/02/19 at 21:59; Status DC Potassium Chloride 90 meq/ Magnesium Sulfate 20 meq/ Multivitamins 10 ml/Chromium/ Copper/Manganese/ Seleni/Zn 1 ml/ Insulin Human Regular 15 unit/ Total Parenteral Nutrition/Amino Acids/Dextrose/ Fat Emulsion Intravenous 1,920 ml @ 80 mls/hr TPN CONT IV Last administered on 09/02/19at 22:48; Start 09/02/19 at 22:00; Stop 09/03/19 at 21:59; Status DC Potassium Chloride 90 meq/ Magnesium Sulfate 20 meq/ Multivitamins 10 ml/Chromium/ Copper/Manganese/ Seleni/Zn 1 ml/ Insulin Human Regular 15 unit/ Total Parenteral Nutrition/Amino Acids/Dextrose/ Fat Emulsion Intravenous 1,890 ml @ 78.75 mls/ hr TPN CONT IV Last administered on 09/03/19at 22:15; Start 09/03/19 at 22:00; Stop 09/04/19 at 21:59; Status DC Linezolid/Dextrose 300 ml @ 300 mls/hr Q12HR IV Last administered on 09/06/19at 21:08; Start 09/04/19 at 09:00; Stop 09/07/19 at 08:11; Status DC Daptomycin 450 mg/ Sodium Chloride 50 ml @ 100 mls/hr Q24H IV Last administered on 09/07/19at 09:25; Start 09/04/19 at 09:00; Stop 09/08/19 at 08:30; Status DC Potassium Chloride 90 meq/ Magnesium Sulfate 20 meq/ Multivitamins 10 ml/Chromium/ Copper/Manganese/ Seleni/Zn 1 ml/ Insulin Human Regular 15 unit/ Total Parenteral Nutrition/Amino Acids/Dextrose/ Fat Emulsion Intravenous 1,890 ml @ 78.75 mls/ hr TPN CONT IV Last administered on 09/04/19at 21:34; Start 09/04/19 at 22:00; Stop 09/05/19 at 21:59; Status DC Lorazepam (Ativan Inj) 2 mg STK-MED ONCE .ROUTE ; Start 09/04/19 at 14:58; Stop 09/04/19 at 14:58; Status DC Metoprolol Tartrate (Lopressor Vial) 5 mg 1X ONCE IVP Last administered on 09/04/19at 15:31; Start 09/04/19 at 15:15; Stop 09/04/19 at 15:16; Status DC Lorazepam (Ativan Inj) 2 mg 1X ONCE IVP Last administered on 09/04/19at 15:30; Start 09/04/19 at 15:15; Stop 09/04/19 at 15:16; Status DC Enoxaparin Sodium (Lovenox 40mg Syringe) 40 mg Q24H SQ Last administered on 09/23/19at 17:44; Start 09/04/19 at 17:00; Stop 09/25/19 at 06:50; Status DC Lorazepam (Ativan Inj) 1 mg PRN Q4HRS PRN IVP ANXIETY / AGITATION MILD-MOD Last administered on 09/18/19at 15:55; Start 09/04/19 at 19:15; Stop 09/20/19 at 11:45; Status DC Lorazepam (Ativan Inj) 2 mg PRN Q4HRS PRN IVP ANXIETY / AGITATION SEVERE Last administered on 09/19/19at 07:55; Start 09/04/19 at 19:15; Stop 09/20/19 at 11:45; Status DC Fentanyl Citrate (Fentanyl 2ml Vial) 50 mcg PRN Q4HRS PRN IVP SEVERE PAIN Last administered on 10/01/19at 05:15; Start 09/05/19 at 13:15; Stop 10/02/19 at 09:29; Status DC Fentanyl Citrate (Fentanyl 2ml Vial) 25 mcg PRN Q4HRS PRN IVP MODERATE PAIN Last administered on 10/01/19at 00:27; Start 09/05/19 at 13:15; Stop 10/02/19 at 09:30; Status DC Potassium Chloride 90 meq/ Magnesium Sulfate 20 meq/ Multivitamins 10 ml/Chromium/ Copper/Manganese/ Seleni/Zn 1 ml/ Insulin Human Regular 15 unit/ Total Parenteral Nutrition/Amino Acids/Dextrose/ Fat Emulsion Intravenous 1,890 ml @ 78.75 mls/ hr TPN CONT IV Last administered on 09/05/19at 22:18; Start 09/05/19 at 22:00; Stop 09/06/19 at 21:59; Status DC Furosemide (Lasix) 40 mg 1X ONCE IVP Last administered on 09/05/19at 21:51; Start 09/05/19 at 21:45; Stop 09/05/19 at 21:48; Status DC Albumin Human 100 ml @ 100 mls/hr 1X PRN PRN IV SEE COMMENTS; Start 09/06/19 at 01:30 Furosemide (Lasix) 40 mg [id number] IVP Last administered on 09/21/19at 08:04; Start 09/06/19 at 14:00; Stop 09/21/19 at 13:07; Status DC Potassium Chloride 90 meq/ Magnesium Sulfate 20 meq/ Multivitamins 10 ml/Chromium/ Copper/Manganese/ Seleni/Zn 1 ml/ Insulin Human Regular 15 unit/ Total Parenteral Nutrition/Amino Acids/Dextrose/ Fat Emulsion Intravenous 1,800 ml @ 75 mls/hr TPN CONT IV Last administered on 09/06/19at 22:31; Start 09/06/19 at 22:00; Stop 09/07/19 at 21:59; Status DC Potassium Chloride 90 meq/ Magnesium Sulfate 20 meq/ Multivitamins 10 ml/Chromium/ Copper/Manganese/ Seleni/Zn 1 ml/ Insulin Human Regular 15 unit/ Total Parenteral Nutrition/Amino Acids/Dextrose/ Fat Emulsion Intravenous 1,800 ml @ 75 mls/hr TPN CONT IV Last administered on 09/07/19at 22:28; Start 09/07/19 at 22:00; Stop 09/08/19 at 21:59; Status DC Potassium Chloride 110 meq/ Magnesium Sulfate 20 meq/ Multivitamins 10 ml/Chromium/ Copper/Manganese/ Seleni/Zn 1 ml/ Insulin Human Regular 15 unit/ Total Parenteral Nutrition/Amino Acids/Dextrose/ Fat Emulsion Intravenous 1,800 ml @ 75 mls/hr TPN CONT IV Last administered on 09/08/19at 22:01; Start 09/08/19 at 22:00; Stop 09/09/19 at 21:59; Status DC Saliva Substitute (Biotene Moisturizing Mouth) 2 spray PRN Q15MIN PRN PO DRY MOUTH; Start 09/08/19 at 11:00 Potassium Chloride 110 meq/ Magnesium Sulfate 20 meq/ Multivitamins 10 ml/Chromium/ Copper/Manganese/ Seleni/Zn 1 ml/ Insulin Human Regular 15 unit/ Total Parenteral Nutrition/Amino Acids/Dextrose/ Fat Emulsion Intravenous 1,800 ml @ 75 mls/hr TPN CONT IV Last administered on 09/09/19at 22:21; Start 09/09/19 at 22:00; Stop 09/10/19 at 21:59; Status DC Potassium Chloride 110 meq/ Magnesium Sulfate 20 meq/ Multivitamins 10 ml/Chromium/ Copper/Manganese/ Seleni/Zn 1 ml/ Insulin Human Regular 15 unit/ Total Parenteral Nutrition/Amino Acids/Dextrose/ Fat Emulsion Intravenous 1,800 ml @ 75 mls/hr TPN CONT IV Last administered on 09/10/19at 22:04; Start 09/10/19 at 22:00; Stop 09/11/19 at 21:59; Status DC Potassium Chloride 110 meq/ Magnesium Sulfate 20 meq/ Multivitamins 10 ml/Chromium/ Copper/Manganese/ Seleni/Zn 1 ml/ Insulin Human Regular 15 unit/ Total Parenteral Nutrition/Amino Acids/Dextrose/ Fat Emulsion Intravenous 1,800 ml @ 75 mls/hr TPN CONT IV Last administered on 09/11/19at 22:48; Start 09/11/19 at 22:00; Stop 09/12/19 at 21:59; Status DC Potassium Chloride 70 meq/ Magnesium Sulfate 20 meq/ Multivitamins 10 ml/Chromium/ Copper/Manganese/ Seleni/Zn 1 ml/ Insulin Human Regular 15 unit/ Total Parenteral Nutrition/Amino Acids/Dextrose/ Fat Emulsion Intravenous 1,800 ml @ 75 mls/hr TPN CONT IV Last administered on 09/12/19at 21:39; Start 09/12/19 at 22:00; Stop 09/13/19 at 21:59; Status DC Meropenem 500 mg/ Sodium Chloride 50 ml @ 100 mls/hr Q6HRS IV Last administered on 09/14/19at 06:02; Start 09/12/19 at 18:00; Stop 09/14/19 at 09:59; Status DC Barium Sulfate (Varibar Thin Liquid [place]) 148 gm 1X ONCE PO ; Start 09/13/19 at 11:45; Stop 09/13/19 at 11:49; Status DC Potassium Chloride 70 meq/ Magnesium Sulfate 20 meq/ Multivitamins 10 ml/Chromium/ Copper/Manganese/ Seleni/Zn 1 ml/ Insulin Human Regular 15 unit/ T otal Parenteral Nutrition/Amino Acids/Dextrose/ Fat Emulsion Intravenous 1,800 ml @ 75 mls/hr TPN CONT IV Last administered on 09/13/19at 22:27; Start 09/13/19 at 22:00; Stop 09/14/19 at 21:59; Status DC Piperacillin Sod/ Tazobactam Sod 3.375 gm/Sodium Chloride 50 ml @ 100 mls/hr Q6HRS IV Last administered on 09/22/19at 06:10; Start 09/14/19 at 12:00; Stop 09/22/19 at 07:26; Status DC Potassium Chloride 70 meq/ Magnesium Sulfate 20 meq/ Multivitamins 10 ml/Chromium/ Copper/Manganese/ Seleni/Zn 1 ml/ Insulin Human Regular 15 unit/ Total Parenteral Nutrition/Amino Acids/Dextrose/ Fat Emulsion Intravenous 1,800 ml @ 75 mls/hr TPN CONT IV Last administered on 09/14/19at 22:03; Start 09/14/19 at 22:00; Stop 09/15/19 at 21:59; Status DC Potassium Chloride 70 meq/ Magnesium Sulfate 20 meq/ Multivitamins 10 ml/Chromium/ Copper/Manganese/ Seleni/Zn 1 ml/ Insulin Human Regular 15 unit/ T otal Parenteral Nutrition/Amino Acids/Dextrose/ Fat Emulsion Intravenous 1,800 ml @ 75 mls/hr TPN CONT IV Last administered on 09/15/19at 22:33; Start 09/15/19 at 22:00; Stop 09/16/19 at 21:59; Status DC Potassium Chloride 70 meq/ Magnesium Sulfate 20 meq/ Multivitamins 10 ml/Chromium/ Copper/Manganese/ Seleni/Zn 1 ml/ Insulin Human Regular 15 unit/ Total Parenteral Nutrition/Amino Acids/Dextrose/ Fat Emulsion Intravenous 1,800 ml @ 75 mls/hr TPN CONT IV Last administered on 09/16/19at 23:13; Start at 22:00; Stop 09/17/19 at 21:59; Status DC Potassium Chloride 80 meq/ Magnesium Sulfate 20 meq/ Multivitamins 10 ml/Manager [employer] mium/ Copper/Manganese/ Seleni/Zn 1 ml/ Insulin Human Regular 15 unit/ Total Parenteral Nutrition/Amino Acids/Dextrose/ Fat Emulsion Intravenous 1,800 ml @ 75 mls/hr TPN CONT IV Last administered on 09/17/19at 22:30; Start 09/17/19 at 22:00; Stop 09/18/19 at 21:59; Status DC Potassium Chloride 80 meq/ Magnesium Sulfate 20 meq/ Multivitamins 10 ml/Chromium/ Copper/Manganese/ Seleni/Zn 1 ml/ Insulin Human Regular 15 unit/ Total Parenteral Nutrition/Amino Acids/Dextrose/ Fat Emulsion Intravenous 1,800 ml @ 75 mls/hr TPN CONT IV Last administered on 09/18/19at 21:54; Start 09/18/19 at 22:00; Stop 09/19/19 at 21:59; Status DC Potassium Chloride/Water 100 ml @ 100 mls/hr 1X ONCE IV Last administered on 09/19/19at 10:15; Start 09/19/19 at 10:00; Stop 09/19/19 at 10:59; Status DC Potassium Chloride 90 meq/ Magnesium Sulfate 20 meq/ Multivitamins 10 ml/Chromium/ Copper/Manganese/ Seleni/Zn 1 ml/ Insulin Human Regular 20 unit/ Total Parenteral Nutrition/Amino Acids/Dextrose/ Fat Emulsion Intravenous 1,800 ml @ 75 mls/hr TPN CONT IV Last administered on 09/19/19at 22:28; Start 09/19/19 at 22:00; Stop 09/20/19 at 21:59; Status DC Potassium Chloride 90 meq/ Magnesium Sulfate 20 meq/ Multivitamins 10 ml/Chromium/ Copper/Manganese/ Seleni/Zn 1 ml/ Insulin Human Regular 20 unit/ Total Parenteral Nutrition/Amino Acids/Dextrose/ Fat Emulsion Intravenous 1,800 ml @ 75 mls/hr TPN CONT IV Last administered on 09/20/19at 22:08; Start 09/20/19 at 22:00; Stop 09/21/19 at 21:59; Status DC Lorazepam (Ativan Inj) 0.25 mg PRN Q4HRS PRN IVP ANXIETY / AGITATION Last administered on 10/01/19at 02:25; Start 09/21/19 at 07:30 Potassium Chloride 90 meq/ Magnesium Sulfate 20 meq/ Multivitamins 10 ml/Chromium/ Copper/Manganese/ Seleni/Zn 1 ml/ Insulin Human Regular 20 unit/ Total Parenteral Nutrition/Amino Acids/Dextrose/ Fat Emulsion Intravenous 1,800 ml @ 75 mls/hr TPN CONT IV Last administered on 09/21/19at 23:13; Start 09/21/19 at 22:00; Stop 09/22/19 at 21:59; Status DC Furosemide (Lasix) 40 mg DAILY IVP Last administered on 09/23/19at 11:14; Start 09/21/19 at 13:30; Stop 09/25/19 at 09:12; Status DC Fluoxetine HCl (PROzac) 20 mg QHS PEG Last administered on 10/09/19at 22:19; Start 09/22/19 at 21:00 Fentanyl (Duragesic 50mcg/ Hr Patch) 1 patch Q72H TD Last administered on 09/22/19at 21:22; Start 09/22/19 at 21:00; Stop 10/01/19 at 12:00; Status DC Potassium Chloride 40 meq/ Potassium Acetate 60 meq/Magnesium Sulfate 10 meq/ Multivitamins 10 ml/Chromium/ Copper/Manganese/ Seleni/Zn 1 ml/ Insulin Human Regular 20 unit/ Total Parenteral Nutrition/Amino Acids/Dextrose/ Fat Emulsion Intravenous 1,800 ml @ 75 mls/hr TPN CONT IV Last administered on 09/23/19at 00:03; Start 09/22/19 at 22:00; Stop 09/23/19 at 21:59; Status DC Potassium Acetate 80 meq/Magnesium Sulfate 5 meq/ Multivitamins 10 ml/Chromium/ Copper/Manganese/ Seleni/Zn 1 ml/ Insulin Human Regular 20 unit/ Total Parenteral Nutrition/Amino Acids/Dextrose/ Fat Emulsion Intravenous 1,920 ml @ 80 mls/hr TPN CONT IV Last administered on 09/23/19at 21:59; Start 09/23/19 at 22:00; Stop 09/24/19 at 21:59; Status DC Potassium Acetate 60 meq/Magnesium Sulfate 5 meq/ Multivitamins 10 ml/Chromium/ Copper/Manganese/ Seleni/Zn 1 ml/ Insulin Human Regular 30 unit/ Total Parenteral Nutrition/Amino Acids/Dextrose/ Fat Emulsion Intravenous 1,920 ml @ 80 mls/hr TPN CONT IV Last administered on 09/24/19at 21:54; Start 09/24/19 at 22:00; Stop 09/25/19 at 21:59; Status DC Norepinephrine Bitartrate 8 mg/ Dextrose 258 ml @ 13.332 mls/ hr CONT PRN IV PER PROTOCOL Last administered on 09/25/19at 21:46; Start 09/25/19 at 06:30 Albumin Human 500 ml @ 125 mls/hr 1X ONCE IV Last administered on 09/25/19at 08:10; Start 09/25/19 at 08:15; Stop 09/25/19 at 12:14; Status DC Potassium Acetate 40 meq/Magnesium Sulfate 5 meq/ Multivitamins 10 ml/Chromium/ Copper/Manganese/ Seleni/Zn 1 ml/ Insulin Human Regular 30 unit/ Total Parenteral Nutrition/Amino Acids/Dextrose/ Fat Emulsion Intravenous 1,920 ml @ 80 mls/hr TPN CONT IV Last administered on 09/25/19at 22:23; Start 09/25/19 at 22:00; Stop 09/26/19 at 21:59; Status DC Meropenem 1 gm/ Sodium Chloride 100 ml @ 200 mls/hr Q8HRS IV ; Start 09/25/19 at 14:00; Status Cancel Meropenem 1 gm/ Sodium Chloride 100 ml @ 200 mls/hr Q8HRS IV Last administered on 09/25/19at 11:04; Start 09/25/19 at 10:00; Stop 09/25/19 at 13:00; Status DC Meropenem 1 gm/ Sodium Chloride 100 ml @ 200 mls/hr Q12HR IV Last administered on 10/10/19at 08:55; Start 09/25/19 at 21:00 Sodium Chloride 1,000 ml @ 1,000 mls/hr 1X ONCE IV Last administered on 09/25/19at 11:06; Start 09/25/19 at 10:45; Stop 09/25/19 at 11:44; Status DC Micafungin Sodium 100 mg/Dextrose 100 ml @ 100 mls/hr Q24H IV Last administered on 10/09/19at 11:45; Start 09/25/19 at 11:00 Daptomycin 410 mg/ Sodium Chloride 50 ml @ 100 mls/hr Q24H IV Last administered on 09/27/19at 13:33; Start 09/25/19 at 14:00; Stop 09/28/19 at 08:30; Status DC Midazolam HCl (Versed) 2 mg STK-MED ONCE .ROUTE ; Start 09/25/19 at 14:47; Stop 09/25/19 at 14:48; Status DC Fentanyl Citrate (Fentanyl 2ml Vial) 100 mcg STK-MED ONCE .ROUTE ; Start 09/25/19 at 14:47; Stop 09/25/19 at 14:48; Status DC Flumazenil (Romazicon) 0.5 mg STK-MED ONCE IV ; Start 09/25/19 at 14:48; Stop 09/25/19 at 14:48; Status DC Naloxone HCl (Narcan) 0.4 mg STK-MED ONCE .ROUTE ; Start 09/25/19 at 14:48; Stop 09/25/19 at 14:48; Status DC Lidocaine HCl (Lidocaine 1% 20ml Vial) 20 ml STK-MED ONCE .ROUTE ; Start 09/25/19 at 14:48; Stop 09/25/19 at 14:48; Status DC Midazolam HCl (Versed) 2 mg 1X ONCE IV Last administered on 09/25/19at 15:28; Start 09/25/19 at 15:00; Stop 09/25/19 at 15:01; Status DC Fentanyl Citrate (Fentanyl 2ml Vial) 100 mcg 1X ONCE IV Last administered on 09/25/19at 15:28; Start 09/25/19 at 15:00; Stop 09/25/19 at 15:01; Status DC Lidocaine HCl (Lidocaine 1% 20ml Vial) 20 ml 1X ONCE INJ Last administered on 09/25/19at 15:30; Start 09/25/19 at 15:00; Stop 09/25/19 at 15:01; Status DC Sodium Chloride 1,000 ml @ 100 mls/hr Q10H IV Last administered on 10/04/19at 07:30; Start 09/25/19 at 20:00; Stop 10/04/19 at 11:26; Status DC Sodium Bicarbonate (Sodium Bicarb Adult 8.4% Syr) 50 meq 1X ONCE IV Last administered on 09/25/19at 21:47; Start 09/25/19 at 22:00; Stop 09/25/19 at 22:01; Status DC Potassium Acetate 40 meq/Magnesium Sulfate 5 meq/ Multivitamins 10 ml/Chromium/ Copper/Manganese/ Seleni/Zn 1 ml/ Insulin Human Regular 30 unit/ Total Parenteral Nutrition/Amino Acids/Dextrose/ Fat Emulsion Intravenous 1,920 ml @ 80 mls/hr TPN CONT IV Last administered on 09/26/19at 22:28; Start 09/26/19 at 22:00; Stop 09/27/19 at 21:59; Status DC Sodium Chloride 500 ml @ 500 mls/hr 1X ONCE IV Last administered on 09/27/19at 06:39; Start 09/27/19 at 06:45; Stop 09/27/19 at 07:44; Status DC Potassium Acetate 40 meq/Magnesium Sulfate 5 meq/ Multivitamins 10 ml/Chromium/ Copper/Manganese/ Seleni/Zn 1 ml/ Insulin Human Regular 30 unit/ Total Parenteral Nutrition/Amino Acids/Dextrose/ Fat Emulsion Intravenous 1,920 ml @ 80 mls/hr TPN CONT IV Last administered on 09/27/19at 22:03; Start 09/27/19 at 22:00; Stop 09/28/19 at 21:59; Status DC Metoprolol Tartrate (Lopressor Vial) 5 mg PRN Q6HRS PRN IVP HYPERTENSION Last administered on 10/06/19at 10:14; Start 09/28/19 at 09:00 Potassium Acetate 40 meq/Magnesium Sulfate 5 meq/ Multivitamins 10 ml/Chromium/ Copper/Manganese/ Seleni/Zn 1 ml/ Insulin Human Regular 30 unit/ Total Parenteral Nutrition/Amino Acids/Dextrose/ Fat Emulsion Intravenous 1,920 ml @ 80 mls/hr TPN CONT IV Last administered on 09/28/19at 21:26; Start 09/28/19 at 22:00; Stop 09/29/19 at 21:59; Status DC Potassium Acetate 40 meq/Magnesium Sulfate 5 meq/ Multivitamins 10 ml/Chromium/ Copper/Manganese/ Seleni/Zn 1 ml/ Insulin Human Regular 30 unit/ Total Parenteral Nutrition/Amino Acids/Dextrose/ Fat Emulsion Intravenous 1,920 ml @ 80 mls/hr TPN CONT IV Last administered on 09/29/19at 23:23; Start 09/29/19 at 22:00; Stop 09/30/19 at 21:59; Status DC Potassium Acetate 40 meq/Magnesium Sulfate 5 meq/ Multivitamins 10 ml/Chromium/ Copper/Manganese/ Seleni/Zn 1 ml/ Insulin Human Regular 30 unit/ Total Parenteral Nutrition/Amino Acids/Dextrose/ Fat Emulsion Intravenous 1,920 ml @ 80 mls/hr TPN CONT IV Last administered on 09/30/19at 21:35; Start 09/30/19 at 22:00; Stop 10/01/19 at 21:59; Status DC Furosemide (Lasix) 20 mg 1X ONCE IVP Last administered on 10/01/19at 06:26; Start 10/01/19 at 06:15; Stop 10/01/19 at 06:16; Status DC Methylprednisolone Sodium Succinate (SOLU-Medrol 125MG VIAL) 125 mg 1X ONCE IV Last administered on 10/01/19at 06:26; Start 10/01/19 at 06:15; Stop 10/01/19 at 06:16; Status DC Albuterol/ Ipratropium (Duoneb) 3 ml Q4HRS NEB Last administered on 10/10/19at 08:47; Start 10/01/19 at 08:00 Fentanyl Citrate 30 ml @ 0 mls/hr CONT PRN IV SEE PROTOCOL Last administered on 10/10/19at 05:36; Start 10/01/19 at 06:00 Propofol 100 ml @ 0 mls/hr CONT PRN IV SEE PROTOCOL Last administered on 10/08/19at 23:50; Start 10/01/19 at 06:00 Fentanyl Citrate (Fentanyl 2ml Vial) 25 mcg PRN Q1HR PRN IV SEE COMMENTS; Start 10/01/19 at 06:00 Fentanyl Citrate (Fentanyl 2ml Vial) 50 mcg PRN Q1HR PRN IV SEE COMMENTS; Start 10/01/19 at 06:00 Chlorhexidine Gluconate (Peridex) 15 ml BID MM ; Start 10/01/19 at 09:00; Stop 10/01/19 at 07:58; Status DC Potassium Acetate 40 meq/Magnesium Sulfate 5 meq/ Multivitamins 10 ml/Chromium/ Copper/Manganese/ Seleni/Zn 1 ml/ Insulin Human Regular 30 unit/ Total Parenteral Nutrition/Amino Acids/Dextrose/ Fat Emulsion Intravenous 1,920 ml @ 80 mls/hr TPN CONT IV Last administered on 10/01/19at 21:19; Start 10/01/19 at 22:00; Stop 10/02/19 at 21:59; Status DC Acetylcysteine (Mucomyst 20% Resp Treatment) 600 mg BID NEB Last administered on 10/07/19at 09:33; Start 10/01/19 at 21:00; Stop 10/07/19 at 10:39; Status DC Magnesium Sulfate 100 ml @ 25 mls/hr 1X ONCE IV Last administered on 10/01/19at 15:48; Start 10/01/19 at 15:45; Stop 10/01/19 at 19:44; Status DC Potassium Acetate 40 meq/Magnesium Sulfate 5 meq/ Multivitamins 10 ml/Chromium/ Copper/Manganese/ Seleni/Zn 1 ml/ Insulin Human Regular 30 unit/ Total Parenteral Nutrition/Amino Acids/Dextrose/ Fat Emulsion Intravenous 1,920 ml @ 80 mls/hr TPN CONT IV Last administered on 10/02/19at 21:35; Start 10/02/19 at 22:00; Stop 10/03/19 at 21:59; Status DC Potassium Chloride/Water 100 ml @ 100 mls/hr Q1H IV Last administered on 10/03/19at 08:31; Start 10/03/19 at 07:00; Stop 10/03/19 at 08:59; Status DC Potassium Acetate 40 meq/Magnesium Sulfate 5 meq/ Multivitamins 10 ml/Chromium/ Copper/Manganese/ Seleni/Zn 1 ml/ Insulin Human Regular 30 unit/ Total Parenteral Nutrition/Amino Acids/Dextrose/ Fat Emulsion Intravenous 1,920 ml @ 80 mls/hr TPN CONT IV Last administered on 10/03/19at 21:54; Start 10/03/19 at 22:00; Stop 10/04/19 at 19:34; Status DC Lidocaine HCl (Buffered Lidocaine 1%) 3 ml STK-MED ONCE .ROUTE ; Start 10/03/19 at 12:14; Stop 10/03/19 at 12:14; Status DC Lidocaine HCl (Buffered Lidocaine 1%) 3 ml 1X ONCE IJ Last administered on 10/03/19at 13:11; Start 10/03/19 at 13:00; Stop 10/03/19 at 13:01; Status DC Magnesium Sulfate 50 ml @ 25 mls/hr 1X ONCE IV ; Start 10/04/19 at 08:15; Stop 10/04/19 at 10:14; Status DC Potassium Acetate 40 meq/Magnesium Sulfate 10 meq/ Multivitamins 10 ml/Chromium/ Copper/Manganese/ Seleni/Zn 1 ml/ Insulin Human Regular 20 unit/ Total Parenteral Nutrition/Amino Acids/Dextrose/ Fat Emulsion Intravenous 1,920 ml @ 80 mls/hr TPN CONT IV Last administered on 10/04/19at 21:32; Start 10/04/19 at 22:00; Stop 10/05/19 at 21:59; Status DC Potassium Chloride/Water 100 ml @ 100 mls/hr Q1H IV Last administered on 10/05/19at 09:12; Start 10/05/19 at 08:00; Stop 10/05/19 at 09:59; Status DC Alteplase, Recombinant (Cathflo For Central Catheter Clearance) 4 mg 1X ONCE INT CAT ; Start 10/05/19 at 09:15; Stop 10/05/19 at 09:16; Status UNV Alteplase, Recombinant (Cathflo For Central Catheter Clearance) 4 mg 1X ONCE INT CAT ; Start 10/05/19 at 09:15; Stop 10/05/19 at 09:16; Status UNV Alteplase, Recombinant (Cathflo For Central Catheter Clearance) 4 mg 1X ONCE INT CAT ; Start 10/05/19 at 09:15; Stop 10/05/19 at 09:16; Status UNV Alteplase, Recombinant 4 mg/ Sodium Chloride 20 ml @ 20 mls/hr 1X ONCE IV Last administered on 10/05/19at 10:10; Start 10/05/19 at 10:00; Stop 10/05/19 at 10:59; Status DC Alteplase, Recombinant 4 mg/ Sodium Chloride 20 ml @ 20 mls/hr 1X ONCE IV Last administered on 10/05/19at 10:09; Start 10/05/19 at 10:00; Stop 10/05/19 at 10:59; Status DC Alteplase, Recombinant 4 mg/ Sodium Chloride 20 ml @ 20 mls/hr 1X ONCE IV Last administered on 10/05/19at 10:09; Start 10/05/19 at 10:00; Stop 10/05/19 at 10:59; Status DC Potassium Acetate 60 meq/Magnesium Sulfate 10 meq/ Multivitamins 10 ml/Chromium/ Copper/Manganese/ Seleni/Zn 1 ml/ Insulin Human Regular 20 unit/ Total Parenteral Nutrition/Amino Acids/Dextrose/ Fat Emulsion Intravenous 1,920 ml @ 80 mls/hr TPN CONT IV Last administered on 10/05/19at 21:55; Start 10/05/19 at 22:00; Stop 10/06/19 at 21:59; Status DC Albumin Human 500 ml @ 125 mls/hr 1X ONCE IV Last administered on 10/06/19at 12:01; Start 10/06/19 at 11:15; Stop 10/06/19 at 15:14; Status DC Sodium Chloride 500 ml @ 500 mls/hr 1X ONCE IV Last administered on 10/06/19at 13:50; Start 10/06/19 at 11:15; Stop 10/06/19 at 12:14; Status DC Potassium Acetate 60 meq/Magnesium Sulfate 14 meq/ Multivitamins 10 ml/Chromium/ Copper/Manganese/ Seleni/Zn 1 ml/ Insulin Human Regular 20 unit/ Total Parenteral Nutrition/Amino Acids/Dextrose/ Fat Emulsion Intravenous 1,920 ml @ 80 mls/hr TPN CONT IV Last administered on 10/06/19at 22:26; Start 10/06/19 at 22:00; Stop 10/07/19 at 21:59; Status DC Ciprofloxacin/ Dextrose 200 ml @ 200 mls/hr Q12HR IV Last administered on 10/10/19at 08:56; Start 10/06/19 at 21:00 Albumin Human 250 ml @ 62.5 mls/hr 1X ONCE IV Last administered on 10/07/19at 11:09; Start 10/07/19 at 11:00; Stop 10/07/19 at 14:59; Status DC Furosemide (Lasix) 20 mg 1X ONCE IVP Last administered on 10/07/19at 14:52; Start 10/07/19 at 10:45; Stop 10/07/19 at 10:49; Status DC Potassium Acetate 60 meq/Magnesium Sulfate 14 meq/ Multivitamins 10 ml/Chromium/ Copper/Manganese/ Seleni/Zn 1 ml/ Insulin Human Regular 15 unit/ Total Parenteral Nutrition/Amino Acids/Dextrose/ Fat Emulsion Intravenous 1,920 ml @ 80 mls/hr TPN CONT IV Last administered on 10/07/19at 22:08; Start 10/07/19 at 22:00; Stop 10/08/19 at 21:59; Status DC Potassium Acetate 60 meq/Magnesium Sulfate 14 meq/ Multivitamins 10 ml/Chromium/ Copper/Manganese/ Seleni/Zn 1 ml/ Insulin Human Regular 15 unit/ Total Parenteral Nutrition/Amino Acids/Dextrose/ Fat Emulsion Intravenous 1,920 ml @ 80 mls/hr TPN CONT IV Last administered on 10/08/19at 22:12; Start 10/08/19 at 22:00; Stop 10/09/19 at 21:59; Status DC Potassium Acetate 60 meq/Magnesium Sulfate 14 meq/ Multivitamins 10 ml/Chromium/ Copper/Manganese/ Seleni/Zn 1 ml/ Insulin Human Regular 15 unit/ Total Parenteral Nutrition/Amino Acids/Dextrose/ Fat Emulsion Intravenous 1,920 ml @ 80 mls/hr TPN CONT IV Last administered on 10/09/19at 22:22; Start 10/09/19 at 22:00; Stop 10/10/19 at 21:59 Active Scripts Active Reported Bisoprolol Fumarate 5 Mg Tablet 10 Mg PO DAILY Vitals/I & O Vital Sign - Last 24 Hours 10/09/19 10/09/19 10/09/19 10/09/19 10:00 11:31 12:00 12:00 Temp 98.2 98.2 Pulse 121 116 Resp 21 19 B/P (MAP) 102/51 (68) 91/47 (62) Pulse Ox 98 96 98 O2 Delivery Ventilator Tracheal Collar Trach Collar Ventilator O2 Flow Rate 5.0 10/09/19 10/09/19 10/09/19 10/09/19 12:03 12:33 14:00 16:00 Temp 97.9 97.9 Pulse 118 100 Resp 16 20 B/P (MAP) 114/72 (86) 118/75 (89) Pulse Ox 96 98 98 100 O2 Delivery Ventilator Ventilator O2 Flow Rate 5.0 5.0 10/09/19 10/09/19 10/09/19 10/09/19 16:00 16:51 17:00 18:00 Pulse 118 112 Resp 14 14 B/P (MAP) 100/61 (74) 101/63 (76) Pulse Ox 96 98 99 O2 Delivery Trach Collar Tracheal Collar Ventilator Ventilator O2 Flow Rate 5.0 10/09/19 10/09/19 10/09/19 10/09/19 20:00 20:00 20:34 21:00 Temp 98.6 98.6 Pulse 108 110 Resp 13 16 B/P (MAP) 82/42 (55) 86/44 (58) Pulse Ox 99 99 99 O2 Delivery Tracheal Collar Trach Collar Tracheal Collar Tracheal Collar O2 Flow Rate 8.0 10/09/19 10/09/19 10/09/19 10/10/19 22:00 23:00 23:45 00:00 Pulse 108 106 Resp 15 15 B/P (MAP) 97/55 (69) 91/50 (64) Pulse Ox 99 99 98 O2 Delivery Tracheal Collar Tracheal Collar Tracheal Collar Trach Collar O2 Flow Rate 8.0 6/22/10/10/19 10/10/19 10/10/19 00:00 01:00 02:00 03:00 Temp 98.5 98.5 Pulse 110 118 114 114 Resp 31 B/P (MAP) 83/58 (66) 111/79 (90) 100/61 (74) 115/77 (90) Pulse Ox 98 96 97 97 O2 Delivery Tracheal Collar Tracheal Collar Tracheal Collar Tracheal Collar 10/10/19 10/10/19 10/10/19 10/10/19 03:23 04:00 04:00 05:00 Temp 98.2 98.2 Pulse 116 118 Resp 25 B/P (MAP) 109/61 (77) 116/66 (83) Pulse Ox 98 95 95 O2 Delivery Tracheal Collar Trach Collar Tracheal Collar Tracheal Collar O2 Flow Rate 8.0 10/10/19 10/10/19 10/10/19 10/10/19 06:00 07:00 08:00 08:00 Temp 98.7 98.7 Pulse 116 119 120 Resp B/P (MAP) 108/66 (80) 112/70 (84) 112/69 (83) Pulse Ox 97 96 96 O2 Delivery Tracheal Collar Tracheal Collar Tracheal Collar Trach Collar 10/10/19 10/10/19 08:48 09:00 Pulse 117 Resp 22 B/P (MAP) 119/67 (84) Pulse Ox 96 97 O2 Delivery Tracheal Collar Tracheal Collar O2 Flow Rate 8.0 Intake and Output 10/09/19 10/09/19 10/10/19 15:00 23:00 07:00 Intake Total 315 ml 1462 ml 806 ml Output Total 675 ml 1436 ml 975 ml Balance -360 ml 26 ml -169 ml Hemodynamically unstable?: No Is patient in severe pain?: No Is NPO status required?: No CARIN FERNANDEZ MD Oct 10, 2019 09:52
--- NOTE | 2019-10-10 09:58 | PDOC ---
PROGRESS NOTES Assessment Problems Medical Problems: (1) Acute pancreatitis Status: Acute (2) Cholelithiasis Status: Acute Single seizure on 06/23, no recurrence. Metabolic encephalopathy. Fevers. Metabolic acidosis. Diffuse pulmonary infiltrate. Pleural effusion. Pancreatitis, necrotizing. Gallstone. Leukocytosis. Lymphopenia. Electrolytes imbalances. Hyperglycemia. DM. HTN. HLD. Anemia. Abnormal CXR. Obesity. Ascites and pleural effusion Ileus with vomiting Anemia JUANA Hyperkalemia Metabolic acidosis Hypertension S/P trache, back on vent Anemia S/P IR drain placement, 09/24 Hypotension, intermittently requiring Levophed Plan Keppra if she has further seizures. Treat medical diseases. Subjective Denies pain Objective Vital Signs Date Time Temp Pulse Resp B/P (MAP) Pulse Ox O2 Delivery O2 Flow Rate FiO2 10/10/19 09:00 117 22 119/67 (84) 97 Tracheal Collar 10/10/19 08:48 8.0 10/10/19 08:00 98.7 98.7 Intake and Output 10/10/19 06:59 Intake Total 2583 ml Output Total 3036 ml Balance -453 ml Intake Oral 0 ml IV Total 2583 ml Output Urine Total 2205 ml Gastric Drainage Total 300 ml Chest Tube Drainage Total 335 ml Drainage Total 176 ml Other 20 ml PHYSICAL EXAM Alert, follows commands. Tracheostomy shield. Back on vent PERRL. EOMI. CN: no focal findings. Muscle tone: normal. Muscle strength: 3-4/5 DTR: 1+ Plantar reflex: Silent Gait: not examined in bed. Sensory exam: normal Cerebellar: normal Review of Relevant I have reviewed the following items kolby (where applicable) has been applied. Labs Laboratory Tests Test 10/08/19 13:03 10/08/19 23:59 10/09/19 05:15 10/09/19 11:51 Glucose (Fingerstick) 170 mg/dL (70-99) 132 mg/dL (70-99) 171 mg/dL (70-99) White Blood Count 10.3 x10^3/uL (4.0-11.0) Red Blood Count 3.10 x10^6/uL (3.50-5.40) Hemoglobin 9.0 g/dL (12.0-15.5) Hematocrit 26.3 % (36.0-47.0) Mean Corpuscular Volume 85 fL (79-100) Mean Corpuscular Hemoglobin 29 pg (25-35) Mean Corpuscular Hemoglobin Concent 34 g/dL (31-37) Red Cell Distribution Width 17.4 % (11.5-14.5) Platelet Count 448 x10^3/uL (140-400) Neutrophils (%) (Auto) 74 % (31-73) Lymphocytes (%) (Auto) 17 % (24-48) Monocytes (%) (Auto) 7 % (0-9) Eosinophils (%) (Auto) 1 % (0-3) Basophils (%) (Auto) 0 % (0-3) Neutrophils # (Auto) 7.7 x10^3/uL (1.8-7.7) Lymphocytes # (Auto) 1.8 x10^3/uL (1.0-4.8) Monocytes # (Auto) 0.8 x10^3/uL (0.0-1.1) Eosinophils # (Auto) 0.1 x10^3/uL (0.0-0.7) Basophils # (Auto) 0.0 x10^3/uL (0.0-0.2) Sodium Level 136 mmol/L (136-145) Potassium Level 4.0 mmol/L (3.5-5.1) Chloride Level 102 mmol/L (98-107) Carbon Dioxide Level 29 mmol/L (21-32) Anion Gap 5 (6-14) Blood Urea Nitrogen 15 mg/dL (7-20) Creatinine 0.6 mg/dL (0.6-1.0) Estimated GFR (Cockcroft-Gault) 106.3 BUN/Creatinine Ratio 25 (6-20) Glucose Level 133 mg/dL (70-99) Calcium Level 9.8 mg/dL (8.5-10.1) Total Bilirubin 0.4 mg/dL (0.2-1.0) Aspartate Amino Transf (AST/SGOT) 19 U/L (15-37) Alanine Aminotransferase (ALT/SGPT) 15 U/L (14-59) Alkaline Phosphatase 113 U/L (46-116) Total Protein 4.3 g/dL (6.4-8.2) Albumin 1.0 g/dL (3.4-5.0) Albumin/Globulin Ratio 0.3 (1.0-1.7) Test 10/09/19 18:25 10/10/19 01:12 Glucose (Fingerstick) 140 mg/dL (70-99) 133 mg/dL (70-99) Laboratory Tests Test 10/09/19 11:51 10/09/19 18:25 10/10/19 01:12 Glucose (Fingerstick) 171 mg/dL (70-99) 140 mg/dL (70-99) 133 mg/dL (70-99) Microbiology 10/06/19 Blood Culture - Preliminary, Resulted NO GROWTH AFTER 3 DAYS 10/03/19 Gram Stain - Final, Complete 10/03/19 Aerobic and Anaerobic Culture - Final, Complete 10/01/19 Gram Stain Evaluation - Final, Complete 10/01/19 Respiratory Culture - Final, Complete 10/01/19 Antimicrobic Susceptibility - Final, Complete 09/25/19 Urine Culture - Final, Complete 09/17/19 Gram Stain - Final, Complete 09/17/19 Aerobic Culture - Final, Complete Medications Current Medications Sodium Chloride 1,000 ml @ 1,000 mls/hr Q1H IV Last administered on 07/04/19at 03:00; Start 07/04/19 at 03:00; Stop 07/04/19 at 03:59; Status DC Ondansetron HCl (Zofran) 4 mg 1X ONCE IVP Last administered on 07/04/19at 03:27; Start 07/04/19 at 03:00; Stop 07/04/19 at 03:01; Status DC Morphine Sulfate (Morphine Sulfate) 4 mg 1X ONCE IV ; Start 07/04/19 at 03:00; Stop 07/04/19 at 03:01; Status Cancel Ketorolac Tromethamine (Toradol 30mg Vial) 30 mg 1X ONCE IV Last administered on 07/04/19at 02:54; Start 07/04/19 at 03:00; Stop 07/04/19 at 03:01; Status DC Fentanyl Citrate (Fentanyl 2ml Vial) 25 mcg 1X ONCE IVP Last administered on 07/04/19at 03:23; Start 07/04/19 at 03:30; Stop 07/04/19 at 03:31; Status DC Fentanyl Citrate (Fentanyl 2ml Vial) 100 mcg STK-MED ONCE .ROUTE ; Start 07/04/19 at 03:18; Stop 07/04/19 at 03:18; Status DC Iohexol (Omnipaque 350 Mg/ml) 90 ml 1X ONCE IV Last administered on 07/04/19at 03:25; Start 07/04/19 at 03:30; Stop 07/04/19 at 03:31; Status DC Info (CONTRAST GIVEN -- Rx MONITORING) 1 each PRN DAILY PRN MC SEE COMMENTS; Start 07/04/19 at 03:30; Stop 07/06/19 at 03:29; Status DC Hydromorphone HCl (Dilaudid) 0.5 mg 1X ONCE IV Last administered on 07/04/19at 03:55; Start 07/04/19 at 04:30; Stop 07/04/19 at 04:32; Status DC Ondansetron HCl (Zofran) 4 mg PRN Q8HRS PRN IV NAUSEA/VOMITING 1ST CHOICE; Start 07/04/19 at 05:00; Stop 07/04/19 at 09:27; Status DC Morphine Sulfate (Morphine Sulfate) 2 mg PRN Q2HR PRN IV SEVERE PAIN 7-10 Last administered on 07/05/19at 12:26; Start 07/04/19 at 05:00; Stop 07/05/19 at 14:15; Status DC Sodium Chloride 1,000 ml @ 125 mls/hr Q8H IV Last administered on 07/04/19at 20:56; Start 07/04/19 at 05:00; Stop 07/05/19 at 04:59; Status DC Hydromorphone HCl (Dilaudid) 0.5 mg PRN Q3HRS PRN IV SEVERE PAIN 7-10 Last administered on 07/05/19at 10:06; Start 07/04/19 at 05:00; Stop 07/05/19 at 12:01; Status DC Piperacillin Sod/ Tazobactam Sod 4.5 gm/Sodium Chloride 100 ml @ 200 mls/hr 1X ONCE IV Last administered on 07/04/19at 05:44; Start 07/04/19 at 06:00; Stop at 06:29; Status DC Ondansetron HCl (Zofran) 4 mg PRN Q4HRS PRN IV NAUSEA/VOMITING 1ST CHOICE Last administered on 10/09/19at 08:51; Start 07/04/19 at 09:30 Insulin Human Lispro (HumaLOG) 0-9 UNITS Q6HRS SQ Last administered on 10/09/19at 12:02; Start 07/04/19 at 09:30 Dextrose (Dextrose 50%-Water Syringe) 12.5 gm PRN Q15MIN PRN IV SEE COMMENTS; Start 07/04/19 at 09:30 Pantoprazole Sodium (PROTONIX VIAL for IV PUSH) 40 mg DAILYAC IVP Last administered on 10/10/19at 08:55; Start 07/04/19 at 11:30 Prochlorperazine Edisylate (Compazine) 10 mg PRN Q6HRS PRN IV NAUSEA/VOMITING, 2nd CHOICE Last administered on 10/08/19at 23:50; Start 07/04/19 at 17:45 Atenolol (Tenormin) 100 mg DAILY PO ; Start 07/05/19 at 09:00; Stop 07/04/19 at 20:08; Status DC Metoprolol Tartrate (Lopressor Vial) 2.5 mg Q6HRS IVP Last administered on 07/05/19at 05:51; Start 07/04/19 at 20:15; Stop 07/05/19 at 10:02; Status DC Metoprolol Tartrate (Lopressor Vial) 5 mg Q6HRS IVP Last administered on 07/14/19at 00:12; Start 07/05/19 at 10:15; Stop 07/16/19 at 08:48; Status DC Hydromorphone HCl (Dilaudid) 1 mg PRN Q3HRS PRN IV SEVERE PAIN 7-10 Last administered on 07/11/19at 05:13; Start 07/05/19 at 12:00; Stop 07/19/19 at 00:25; Status DC Lidocaine HCl (Buffered Lidocaine 1%) 3 ml STK-MED ONCE .ROUTE ; Start 07/05/19 at 12:55; Stop 07/05/19 at 12:56; Status DC Albumin Human 500 ml @ 125 mls/hr 1X ONCE IV Last administered on 07/05/19at 14:33; Start 07/05/19 at 14:30; Stop 07/05/19 at 18:32; Status DC Norepinephrine Bitartrate 8 mg/ Dextrose 258 ml @ 17.299 mls/ hr CONT PRN IV PER PROTOCOL Last administered on 08/02/19at 12:48; Start 07/05/19 at 15:30; Stop 08/05/19 at 09:19; Status DC Sodium Chloride 1,000 ml @ 125 mls/hr Q8H IV Last administered on 07/05/19at 21:04; Start 07/05/19 at 16:00; Stop 07/06/19 at 02:42; Status DC Albumin Human 500 ml @ 125 mls/hr PRN BID PRN IV After every 2L NSS & BP < 90mm Last administered on 09/24/19at 11:40; Start 07/05/19 at 16:00 Iohexol (Omnipaque 300 Mg/ml) 60 ml 1X ONCE IV Last administered on 07/05/19at 17:20; Start 07/05/19 at 17:00; Stop 07/05/19 at 17:01; Status DC Info (CONTRAST GIVEN -- Rx MONITORING) 1 each PRN DAILY PRN MC SEE COMMENTS; Start 07/05/19 at 17:00; Stop 07/07/19 at 16:59; Status DC Meropenem 1 gm/ Sodium Chloride 100 ml @ 200 mls/hr Q8HRS IV Last administered on 07/06/19at 05:45; Start 07/05/19 at 20:00; Stop 07/06/19 at 08:48; Status DC Furosemide (Lasix) 40 mg 1X ONCE IVP Last administered on 07/05/19at 22:12; Start 07/05/19 at 22:30; Stop 07/05/19 at 22:31; Status DC Calcium Chloride 1000 mg/Sodium Chloride 110 ml @ 220 mls/hr 1X ONCE IV Last administered on 07/05/19at 22:11; Start 07/05/19 at 22:30; Stop 07/05/19 at 22:59; Status DC Albuterol Sulfate (Ventolin Neb Soln) 2.5 mg 1X ONCE NEB Last administered on 07/06/19at 00:56; Start 07/05/19 at 22:30; Stop 07/05/19 at 22:31; Status DC Insulin Human Regular (HumuLIN R VIAL) 5 unit 1X ONCE IV Last administered on 07/05/19at 22:14; Start 07/05/19 at 22:30; Stop 07/05/19 at 22:31; Status DC Magnesium Sulfate 50 ml @ 25 mls/hr 1X ONCE IV Last administered on 07/06/19at 02:57; Start 07/06/19 at 03:00; Stop 07/06/19 at 04:59; Status DC Calcium Gluconate 1000 mg/Sodium Chloride 110 ml @ 220 mls/hr 1X ONCE IV Last administered on 07/06/19at 02:46; Start 07/06/19 at 03:00; Stop 07/06/19 at 03:29; Status DC Sodium Chloride 1,000 ml @ 200 mls/hr Q5H IV Last administered on 07/06/19at 02:46; Start 07/06/19 at 03:00; Stop 07/06/19 at 10:21; Status DC Calcium Gluconate 1000 mg/Sodium Chloride 110 ml @ 220 mls/hr 1X ONCE IV Last administered on 07/06/19at 03:21; Start 07/06/19 at 03:30; Stop 07/06/19 at 03:59; Status DC Sodium Bicarbonate 50 meq/Sodium Chloride 1,050 ml @ 75 mls/hr Q14H IV Last administered on 07/10/19at 21:10; Start 07/06/19 at 07:30; Stop 07/11/19 at 10:28; Status DC Calcium Gluconate 2000 mg/Sodium Chloride 120 ml @ 220 mls/hr 1X ONCE IV Last administered on 07/06/19at 09:05; Start 07/06/19 at 07:30; Stop 07/06/19 at 08:02; Status DC Lidocaine HCl (Xylocaine-Mpf 1% 2ml Vial) 2 ml STK-MED ONCE .ROUTE ; Start 07/06/19 at 08:47; Stop 07/06/19 at 08:47; Status DC Meropenem 500 mg/ Sodium Chloride 50 ml @ 100 mls/hr Q12HR IV Last administered on 07/11/19at 21:01; Start 07/06/19 at 18:00; Stop 07/12/19 at 07:58; Status DC Lidocaine HCl (Buffered Lidocaine 1%) 3 ml STK-MED ONCE .ROUTE ; Start 07/06/19 at 09:46; Stop 07/06/19 at 09:46; Status DC Lidocaine HCl (Buffered Lidocaine 1%) 6 ml 1X ONCE INJ Last administered on 07/06/19at 10:26; Start 07/06/19 at 10:15; Stop 07/06/19 at 10:16; Status DC Info (Tpn Per Pharmacy) 1 each PRN DAILY PRN MC SEE COMMENTS Last administered on 10/09/19at 11:19; Start 07/06/19 at 12:00 Sodium Chloride 1,000 ml @ 1,000 mls/hr Q1H PRN IV hypotension; Start 07/06/19 at 12:07; Stop 07/06/19 at 18:06; Status DC Diphenhydramine HCl (Benadryl) 25 mg 1X PRN PRN IV ITCHING; Start 07/06/19 at 12:15; Stop 07/07/19 at 12:14; Status DC Diphenhydramine HCl (Benadryl) 25 mg 1X PRN PRN IV ITCHING; Start 07/06/19 at 12:15; Stop 07/07/19 at 12:14; Status DC Sodium Chloride 1,000 ml @ 400 mls/hr Q2H30M PRN IV PATENCY; Start 07/06/19 at 12:07; Stop 07/07/19 at 00:06; Status DC Info (PHARMACY MONITORING -- do not chart) 1 each PRN DAILY PRN MC SEE COMMENTS; Start 07/06/19 at 12:15; Stop 07/08/19 at 08:13; Status DC Sodium Chloride 90 meq/Calcium Gluconate 10 meq/ Multivitamins 10 ml/Chromium/ Copper/Manganese/ Seleni/Zn 1 ml/ Total Parenteral Nutrition/Amino Acids/Dextrose/ Fat Emulsion Intravenous 55.005 ml @ 2.292 mls/hr TPN CONT IV ; Start 07/06/19 at 22:00; Stop 07/06/19 at 12:33; Status DC Info (Tpn Per Pharmacy) 1 each PRN DAILY PRN MC SEE COMMENTS; Start 07/06/19 at 12:30; Status UNV Sodium Chloride 90 meq/Calcium Gluconate 10 meq/ Multivitamins 10 ml/Chromium/ Copper/Manganese/ Seleni/Zn 0.5 ml/ Total Parenteral Nutrition/Amino Acids/Dextrose/ Fat Emulsion Intravenous 1,512 ml @ 63 mls/hr TPN CONT IV Last administered on 07/06/19at 22:06; Start 07/06/19 at 22:00; Stop 07/07/19 at 21:59; Status DC Calcium Carbonate/ Glycine (Tums) 500 mg PRN AFTMEALHC PRN PO INDIGESTION; Start 07/06/19 at 17:45; Stop 08/31/19 at 10:25; Status DC Calcium Gluconate (Calcium Gluconate) 2,000 mg 1X ONCE IVP Last administered on 07/07/19at 02:19; Start 07/07/19 at 02:15; Stop 07/07/19 at 02:16; Status DC Calcium Chloride 3000 mg/Sodium Chloride 1,030 ml @ 50 mls/hr [id number] IV Last administered on 07/09/19at 02:17; Start 07/07/19 at 08:00; Stop 07/09/19 at 15:23; Status DC Lorazepam (Ativan Inj) 1 mg PRN Q4HRS PRN IVP ANXIETY / AGITATION, 2nd choic Last administered on 08/05/19at 03:51; Start 07/07/19 at 09:00; Stop 08/05/19 at 09:19; Status DC Sodium Chloride 1,000 ml @ 1,000 mls/hr Q1H PRN IV hypotension; Start 07/07/19 at 08:56; Stop 07/07/19 at 14:55; Status DC Albumin Human 200 ml @ 200 mls/hr 1X PRN PRN IV Hypotension; Start 07/07/19 at 09:00; Stop 07/07/19 at 14:59; Status DC Diphenhydramine HCl (Benadryl) 25 mg 1X PRN PRN IV ITCHING; Start 07/07/19 at 09:00; Stop 07/08/19 at 08:59; Status DC Diphenhydramine HCl (Benadryl) 25 mg 1X PRN PRN IV ITCHING; Start 07/07/19 at 09:00; Stop 07/08/19 at 08:59; Status DC Sodium Chloride 1,000 ml @ 400 mls/hr Q2H30M PRN IV PATENCY; Start 07/07/19 at 08:56; Stop 07/07/19 at 20:55; Status DC Info (PHARMACY MONITORING -- do not chart) 1 each PRN DAILY PRN MC SEE COMMENTS; Start 07/07/19 at 09:00; Status UNV Info (PHARMACY MONITORING -- do not chart) 1 each PRN DAILY PRN MC SEE COMMENTS; Start 07/07/19 at 09:00; Stop 07/08/19 at 08:13; Status DC Digoxin (Lanoxin) 500 mcg 1X ONCE IV Last administered on 07/07/19at 10:04; Start 07/07/19 at 10:00; Stop 07/07/19 at 10:01; Status DC Digoxin (Lanoxin) 125 mcg 1X ONCE IV Last administered on 07/07/19at 17:10; Start 07/07/19 at 18:00; Stop 07/07/19 at 18:01; Status DC Magnesium Sulfate 100 ml @ 25 mls/hr 1X ONCE IV Last administered on at 12:48; Start 07/07/19 at 13:00; Stop 07/07/19 at 16:59; Status DC Sodium Chloride 90 meq/Magnesium Sulfate 10 meq/ Calcium Gluconate 20 meq/ Multivitamins 10 ml/Chromium/ Copper/Manganese/ Seleni/Zn 0.5 ml/ Total Parenteral Nutrition/Amino Acids/Dextrose/ Fat Emulsion Intravenous 1,512 ml @ 63 mls/hr TPN CONT IV Last administered on 07/07/19at 22:25; Start 07/07/19 at 22:00; Stop 07/08/19 at 21:59; Status DC Sodium Chloride 1,000 ml @ 1,000 mls/hr Q1H PRN IV hypotension; Start 07/08/19 at 08:05; Stop 07/08/19 at 14:04; Status DC Albumin Human 200 ml @ 200 mls/hr 1X ONCE IV Last administered on 07/08/19at 08:57; Start 07/08/19 at 08:15; Stop 07/08/19 at 09:14; Status DC Diphenhydramine HCl (Benadryl) 25 mg 1X PRN PRN IV ITCHING; Start 07/08/19 at 08:15; Stop 07/09/19 at 08:14; Status DC Diphenhydramine HCl (Benadryl) 25 mg 1X PRN PRN IV ITCHING; Start 07/08/19 at 08:15; Stop 07/09/19 at 08:14; Status DC Sodium Chloride 1,000 ml @ 400 mls/hr Q2H30M PRN IV PATENCY; Start 07/08/19 at 08:05; Stop 07/08/19 at 20:04; Status DC Info (PHARMACY MONITORING -- do not chart) 1 each PRN DAILY PRN MC SEE COMMENTS; Start 07/08/19 at 08:15; Stop 07/12/19 at 07:57; Status DC Sodium Chloride 90 meq/Potassium Chloride 15 meq/ Potassium Phosphate 10 mmol/ Magnesium Sulfate 10 meq/Calcium Gluconate 20 meq/ Multivitamins 10 ml/Chromium/ Copper/Manganese/ Seleni/Zn 0.5 ml/ Total Parenteral Nutrition/Amino Acids/Dextrose/ Fat Emulsion Intravenous 1,512 ml @ 63 mls/hr TPN CONT IV Last administered on 07/08/19at 21:01; Start 07/08/19 at 22:00; Stop 07/09/19 at 21:59; Status DC Potassium Chloride/Water 100 ml @ 100 mls/hr 1X ONCE IV Last administered on 07/08/19at 14:09; Start 07/08/19 at 14:00; Stop 07/08/19 at 14:59; Status DC Benzocaine (Hurricaine One) 1 spray 1X ONCE MM Last administered on 07/08/19at 16:38; Start 07/08/19 at 14:30; Stop 07/08/19 at 14:31; Status DC Lidocaine HCl (Glydo (Lidocaine) Jelly) 1 ramu 1X ONCE MM Last administered on 07/08/19at 16:38; Start 07/08/19 at 14:30; Stop 07/08/19 at 14:31; Status DC Linezolid/Dextrose 300 ml @ 300 mls/hr Q12HR IV Last administered on 07/14/19at 21:04; Start 07/08/19 at 20:00; Stop 07/15/19 at 07:50; Status DC Acetaminophen (Tylenol) 650 mg PRN Q6HRS PRN PO MILD PAIN / TEMP; Start 07/09/19 at 03:30; Stop 07/09/19 at 03:36; Status DC Acetaminophen (Tylenol) 650 mg PRN Q6HRS PRN PEG MILD PAIN / TEMP Last administered on 08/04/19at 19:56; Start 07/09/19 at 03:36; Stop 08/31/19 at 10:25; Status DC Sodium Chloride 1,000 ml @ 1,000 mls/hr Q1H PRN IV hypotension; Start 07/09/19 at 07:50; Stop 07/09/19 at 13:49; Status DC Albumin Human 200 ml @ 200 mls/hr 1X PRN PRN IV Hypotension; Start 07/09/19 at 08:00; Stop 07/09/19 at 13:59; Status DC Sodium Chloride (Normal Saline Flush) 10 ml 1X PRN PRN IV AP catheter pack; Start 07/09/19 at 08:00; Stop 07/10/19 at 07:59; Status DC Sodium Chloride (Normal Saline Flush) 10 ml 1X PRN PRN IV LANDMAN catheter pack; Start 07/09/19 at 08:00; Stop 07/10/19 at 07:59; Status DC Sodium Chloride 1,000 ml @ 400 mls/hr Q2H30M PRN IV PATENCY; Start 07/09/19 at 07:50; Stop 07/09/19 at 19:49; Status DC Info (PHARMACY MONITORING -- do not chart) 1 each PRN DAILY PRN MC SEE COMMENTS; Start 07/09/19 at 08:00; Status UNV Info (PHARMACY MONITORING -- do not chart) 1 each PRN DAILY PRN MC SEE COMMENTS; Start 07/09/19 at 08:00; Stop 07/11/19 at 08:25; Status DC Sodium Chloride 90 meq/Potassium Chloride 15 meq/ Potassium Phosphate 10 mmol/ Magnesium Sulfate 10 meq/Calcium Gluconate 20 meq/ Multivitamins 10 ml/Chromium/ Copper/Manganese/ Seleni/Zn 0.5 ml/ Total Parenteral Nutrition/Amino Acids/Dextrose/ Fat Emulsion Intravenous 1,512 ml @ 63 mls/hr TPN CONT IV Last administered on 07/09/19at 20:57; Start 07/09/19 at 22:00; Stop 07/10/19 at 21:59; Status DC Sodium Chloride 90 meq/Potassium Chloride 15 meq/ Potassium Phosphate 15 mmol/ Magnesium Sulfate 10 meq/Calcium Gluconate 20 meq/ Multivitamins 10 ml/Chromium/ Copper/Manganese/ Seleni/Zn 0.5 ml/ Total Parenteral Nutrition/Amino Acids/Dextrose/ Fat Emulsion Intravenous 1,512 ml @ 63 mls/hr TPN CONT IV ; Start 07/10/19 at 22:00; Stop 07/10/19 at 14:16; Status DC Sodium Chloride 90 meq/Potassium Chloride 15 meq/ Potassium Phosphate 15 mmol/ Magnesium Sulfate 10 meq/Calcium Gluconate 20 meq/ Multivitamins 10 ml/Chromium/ Copper/Manganese/ Seleni/Zn 0.5 ml/ Total Parenteral Nutrition/Amino Acids/Dextrose/ Fat Emulsion Intravenous 1,200 ml @ 50 mls/hr TPN CONT IV ; Start 07/10/19 at 22:00; Stop 07/10/19 at 14:17; Status DC Sodium Chloride 90 meq/Potassium Chloride 15 meq/ Potassium Phosphate 10 mmol/ Magnesium Sulfate 10 meq/Calcium Gluconate 20 meq/ Multivitamins 10 ml/Chromium/ Copper/Manganese/ Seleni/Zn 0.5 ml/ Total Parenteral Nutrition/Amino Acids/Dextrose/ Fat Emulsion Intravenous 1,200 ml @ 50 mls/hr TPN CONT IV Last administered on 07/10/19at 23:29; Start 07/10/19 at 22:00; Stop 07/11/19 at 21:59; Status DC Sodium Chloride 1,000 ml @ 1,000 mls/hr Q1H PRN IV hypotension; Start 07/11/19 at 07:28; Stop 07/11/19 at 13:27; Status DC Albumin Human 200 ml @ 200 mls/hr 1X ONCE IV Last administered on 07/11/19at 08:51; Start 07/11/19 at 07:30; Stop 07/11/19 at 08:29; Status DC Diphenhydramine HCl (Benadryl) 25 mg 1X PRN PRN IV ITCHING; Start 07/11/19 at 07:30; Stop 07/12/19 at 07:29; Status DC Diphenhydramine HCl (Benadryl) 25 mg 1X PRN PRN IV ITCHING; Start 07/11/19 at 07:30; Stop 07/12/19 at 07:29; Status DC Sodium Chloride 1,000 ml @ 400 mls/hr Q2H30M PRN IV PATENCY; Start 07/11/19 at 07:28; Stop 07/11/19 at 19:27; Status DC Info (PHARMACY MONITORING -- do not chart) 1 each PRN DAILY PRN MC SEE COMMENTS; Start 07/11/19 at 07:30; Stop 07/22/19 at 13:01; Status DC Metronidazole 100 ml @ 100 mls/hr Q6HRS IV Last administered on 07/27/19at 06:26; Start 07/11/19 at 08:30; Stop 07/27/19 at 09:58; Status DC Micafungin Sodium 100 mg/Dextrose 100 ml @ 100 mls/hr Q24H IV Last administered on 08/18/19at 08:18; Start 07/11/19 at 09:00; Stop 08/18/19 at 2 0:58; Status DC Propofol 0 ml @ As Directed STK-MED ONCE IV ; Start 07/11/19 at 07:53; Stop 07/11/19 at 07:53; Status DC Etomidate (Amidate) 20 mg STK-MED ONCE IV ; Start 07/11/19 at 07:53; Stop 07/11/19 at 07:54; Status DC Midazolam HCl (Versed) 5 mg STK-MED ONCE .ROUTE ; Start 07/11/19 at 07:57; Stop 07/11/19 at 07:57; Status DC Fentanyl Citrate 30 ml @ 0 mls/hr CONT PRN IV SEE PROTOCOL Last administered on 08/05/19at 06:12; Start 07/11/19 at 08:15; Stop 08/05/19 at 09:19; Status DC Artificial Tears (Artificial Tears) 1 drop PRN Q1HR PRN OU DRY EYE, 1st choice; Start 07/11/19 at 08:15; Stop 08/17/19 at 05:31; Status DC Midazolam HCl 50 mg/Sodium Chloride 50 ml @ 0 mls/hr CONT PRN IV SEE PROTOCOL Last administered on 07/14/19at 22:39; Start 07/11/19 at 08:15; Stop 07/16/19 at 15:59; Status DC Etomidate (Amidate) 8 mg 1X ONCE IV Last administered on 07/11/19at 08:33; Start 07/11/19 at 08:30; Stop 07/11/19 at 08:31; Status DC Succinylcholine Chloride (Anectine) 120 mg 1X ONCE IV Last administered on 07/11/19at 08:34; Start 07/11/19 at 08:30; Stop 07/11/19 at 08:31; Status DC Midazolam HCl (Versed) 5 mg 1X ONCE IV ; Start 07/11/19 at 08:30; Stop 07/11/19 at 08:31; Status DC Potassium Chloride 15 meq/ Bicarbonate Dialysis Soln w/ out KCl 5,007.5 ml @ 1,000 mls/ hr Q5H1M IV Last administered on 07/12/19at 11:11; Start 07/11/19 at 12:00; Stop 07/12/19 at 11:15; Status DC Potassium Chloride 15 meq/ Bicarbonate Dialysis Soln w/ out KCl 5,007.5 ml @ 1,000 mls/ hr Q5H1M IV Last administered on 07/12/19at 11:12; Start 07/11/19 at 12:00; Stop 07/12/19 at 11:17; Status DC Potassium Chloride 15 meq/ Bicarbonate Dialysis Soln w/ out KCl 5,007.5 ml @ 1,000 mls/ hr Q5H1M IV Last administered on 07/12/19at 11:11; Start 07/11/19 at 12:00; Stop 07/12/19 at 11:19; Status DC Sodium Chloride 90 meq/Potassium Chloride 15 meq/ Potassium Phosphate 10 mmol/ Magnesium Sulfate 10 meq/Calcium Gluconate 20 meq/ Multivitamins 10 ml/Chromium/ Copper/Manganese/ Seleni/Zn 0.5 ml/ Total Parenteral Nutrition/Amino Acids/Dextrose/ Fat Emulsion Intravenous 1,400 ml @ 58.333 mls/ hr TPN CONT IV Last administered on 07/11/19at 21:42; Start 07/11/19 at 22:00; Stop 07/12/19 at 21:59; Status DC Heparin Sodium (Porcine) (Heparin Sodium) 5,000 unit Q8HRS SQ Last administered on 07/16/19at 05:55; Start 07/11/19 at 15:00; Stop 07/16/19 at 13:28; Status DC Meropenem 500 mg/ Sodium Chloride 50 ml @ 100 mls/hr Q6HRS IV Last administered on 07/13/19at 06:00; Start 07/12/19 at 09:00; Stop 07/13/19 at 07:29; Status DC Potassium Phosphate 20 mmol/ Sodium Chloride 106.6667 ml @ 51.667 m... 1X ONCE IV Last administered on 07/12/19at 11:22; Start 07/12/19 at 10:15; Stop 07/12/19 at 12:18; Status DC Acetaminophen (Tylenol Supp) 650 mg PRN Q6HRS PRN PA MILD PAIN / TEMP > 100.3'F Last administered on 10/06/19at 10:16; Start 07/12/19 at 10:30 Potassium Chloride/Water 100 ml @ 100 mls/hr Q1H IV Last administered on 07/12/19at 12:12; Start 07/12/19 at 11:00; Stop 07/12/19 at 12:59; Status DC Potassium Chloride 20 meq/ Bicarbonate Dialysis Soln w/ out KCl 5,010 ml @ 1,000 mls/hr Q5H1M IV Last administered on 07/13/19at 08:48; Start 07/12/19 at 12:00; Stop 07/13/19 at 13:03; Status DC Potassium Chloride 20 meq/ Bicarbonate Dialysis Soln w/ out KCl 5,010 ml @ 1,000 mls/hr Q5H1M IV Last administered on 07/17/19at 14:52; Start 07/12/19 at 11:30; Stop 07/17/19 at 19:59; Status DC Potassium Chloride 20 meq/ Bicarbonate Dialysis Soln w/ out KCl 5,010 ml @ 1,000 mls/hr Q5H1M IV Last administered on 07/17/19at 14:53; Start 07/12/19 at 11:30; Stop 07/17/19 at 19:59; Status DC Sodium Chloride 90 meq/Potassium Chloride 15 meq/ Potassium Phosphate 15 mmol/ Magnesium Sulfate 10 meq/Calcium Gluconate 15 meq/ Multivitamins 10 ml/Chromium/ Copper/Manganese/ Seleni/Zn 0.5 ml/ Total Parenteral Nutrition/Amino Acids /Dextrose/ Fat Emulsion Intravenous 1,400 ml @ 58.333 mls/ hr TPN CONT IV Last administered on 07/12/19at 22:17; Start 07/12/19 at 22:00; Stop 07/13/19 at 21:59; Status DC Cefepime HCl (Maxipime) 2 gm Q12HR IVP Last administered on 07/26/19at 20:56; Start 07/13/19 at 09:00; Stop 07/27/19 at 09:58; Status DC Daptomycin 500 mg/ Sodium Chloride 50 ml @ 100 mls/hr Q48H IV Last admi nistered on 07/29/19at 09:57; Start 07/13/19 at 08:30; Stop 07/29/19 at 10:07; Status DC Lidocaine HCl (Buffered Lidocaine 1%) 3 ml 1X ONCE INJ Last administered on 07/13/19at 10:27; Start 07/13/19 at 10:30; Stop 07/13/19 at 10:31; Status DC Potassium Phosphate 20 mmol/ Sodium Chloride 106.6667 ml @ 51.667 m... 1X ONCE IV Last administered on 07/13/19at 12:51; Start 07/13/19 at 13:00; Stop 07/13/19 at 15:03; Status DC Sodium Chloride 90 meq/Potassium Chloride 15 meq/ Potassium Phosphate 18 mmol/ Magnesium Sulfate 8 meq/Calcium Gluconate 15 meq/ Multivitamins 10 ml/Chromium/ Copper/Manganese/ Seleni/Zn 0.5 ml/ Total Parenteral Nutrition/Amino Acids/Dextrose/ Fat Emulsion Intravenous 1,400 ml @ 58.333 mls/ hr TPN CONT IV Last administered on 07/13/19at 22:16; Start 07/13/19 at 22:00; Stop 07/14/19 at 21:59; Status DC Potassium Chloride 20 meq/ Bicarbonate Dialysis Soln w/ out KCl 5,010 ml @ 1,000 mls/hr Q5H1M IV Last administered on 07/17/19at 14:54; Start 07/13/19 at 16:00; Stop 07/17/19 at 19:59; Status DC Multi-Ingred Cream/Lotion/Oil/ Oint (Artificial Tears Eye Ointment) 1 ramu PRN Q1HR PRN OU DRY EYE, 2nd choice Last administered on 08/01/19at 08:19; Start 07/13/19 at 17:30; Stop 09/21/19 at 14:39; Status DC Sodium Chloride 90 meq/Potassium Chloride 15 meq/ Potassium Phosphate 18 mmol/ Magnesium Sulfate 8 meq/Calcium Gluconate 15 meq/ Multivitamins 10 ml/Chromium/ Copper/Manganese/ Seleni/Zn 0.5 ml/ Total Parenteral Nutrition/Amino Acids/Dextrose/ Fat Emulsion Intravenous 1,400 ml @ 58.333 mls/ hr TPN CONT IV Last administered on 07/14/19at 22:00; Start 07/14/19 at 22:00; Stop 07/15/19 at 21:59; Status DC Albumin Human 500 ml @ 125 mls/hr 1X ONCE IV ; Start 07/14/19 at 14:15; Stop 07/14/19 at 18:14; Status DC Sodium Chloride 90 meq/Potassium Chloride 15 meq/ Potassium Phosphate 18 mmol/ Magnesium Sulfate 8 meq/Calcium Gluconate 15 meq/ Multivitamins 10 ml/Chromium/ Copper/Manganese/ Seleni/Zn 0.5 ml/ Insulin Human Regular 10 unit/ Total Parenteral Nutrition/Amino Acids/Dextrose/ Fat Emulsion Intravenous 1,400 ml @ 58.333 mls/ hr TPN CONT IV Last administered on 07/15/19at 21:43; Start 07/15/19 at 22:00; Stop 07/16/19 at 21:59; Status DC Lidocaine HCl (Buffered Lidocaine 1%) 3 ml STK-MED ONCE .ROUTE ; Start 07/13/19 at 10:00; Stop 07/15/19 at 13:57; Status DC Midazolam HCl 100 mg/Sodium Chloride 100 ml @ 7 mls/hr CONT PRN IV SEE PROTOCOL Last administered on 07/27/19at 15:35; Start 07/16/19 at 16:00; Stop 09/21/19 at 14:38; Status DC Sodium Chloride 90 meq/Potassium Chloride 15 meq/ Potassium Phosphate 18 mmol/ Magnesium Sulfate 8 meq/Calcium Gluconate 15 meq/ Multivitamins 10 ml/Chromium/ Copper/Manganese/ Seleni/Zn 0.5 ml/ Insulin Human Regular 15 unit/ Total Parenteral Nutrition/Amino Acids/Dextrose/ Fat Emulsion Intravenous 1,400 ml @ 58.333 mls/ hr TPN CONT IV Last administered on 07/16/19at 20:34; Start 07/16/19 at 22:00; Stop 07/17/19 at 21:59; Status DC Info (Icu Electrolyte Protocol) 1 ea CONT PRN PRN MC PER PROTOCOL; Start 07/17/19 at 13:15 Sodium Chloride 90 meq/Potassium Chloride 15 meq/ Potassium Phosphate 18 mmol/ Magnesium Sulfate 8 meq/Calcium Gluconate 15 meq/ Multivitamins 10 ml/Chromium/ Copper/Manganese/ Seleni/Zn 0.5 ml/ Insulin Human Regular 15 unit/ Total Parenteral Nutrition/Amino Acids/Dextrose/ Fat Emulsion Intravenous 1,400 ml @ 58.333 mls/ hr TPN CONT IV Last administered on 07/17/19at 22:05; Start 07/17/19 at 22:00; Stop 07/18/19 at 21:59; Status DC Potassium Chloride 15 meq/ Bicarbonate Dialysis Soln w/ out KCl 5,007.5 ml @ 1,000 mls/ hr Q5H1M IV Last administered on 07/20/19at 18:14; Start 07/17/19 at 20:00; Stop 07/21/19 at 13:08; Status DC Potassium Chloride 15 meq/ Bicarbonate Dialysis Soln w/ out KCl 5,007.5 ml @ 1,000 mls/ hr Q5H1M IV Last administered on 07/20/19at 18:14; Start 07/17/19 at 20:00; Stop 07/21/19 at 13:08; Status DC Potassium Chloride 15 meq/ Bicarbonate Dialysis Soln w/ out KCl 5,007.5 ml @ 1,000 mls/ hr Q5H1M IV Last administered on 07/20/19at 18:14; Start 07/17/19 at 20:00; Stop 07/21/19 at 13:08; Status DC Iohexol (Omnipaque 240 Mg/ml) 30 ml 1X ONCE PO Last administered on 07/18/19at 11:30; Start 07/18/19 at 11:30; Stop 07/18/19 at 11:33; Status DC Info (CONTRAST GIVEN -- Rx MONITORING) 1 each PRN DAILY PRN MC SEE COMMENTS; Start 07/18/19 at 11:45; Stop 07/20/19 at 11:44; Status DC Sodium Chloride 90 meq/Potassium Chloride 15 meq/ Potassium Phosphate 18 mmol/ Magnesium Sulfate 8 meq/Calcium Gluconate 15 meq/ Multivitamins 10 ml/Chromium/ Copper/Manganese/ Seleni/Zn 0.5 ml/ Insulin Human Regular 15 unit/ Total Parenteral Nutrition/Amino Acids/Dextrose/ Fat Emulsion Intravenous 1,400 ml @ 58.333 mls/ hr TPN CONT IV Last administered on 07/18/19at 21:47; Start 07/17 at 22:00; Stop 07/19/19 at 21:59; Status DC Sodium Chloride 90 meq/Potassium Chloride 15 meq/ Potassium Phosphate 18 mmol/ Magnesium Sulfate 8 meq/Calcium Gluconate 15 meq/ Multivitamins 10 ml/Chromium/ Copper/Manganese/ Seleni/Zn 0.5 ml/ Insulin Human Regular 20 unit/ Total Parenteral Nutrition/Amino Acids/Dextrose/ Fat Emulsion Intravenous 1,400 ml @ 58.333 mls/ hr TPN CONT IV Last administered on 07/19/19at 21:36; Start 07/19/19 at 22:00; Stop 07/20/19 at 21:59; Status DC Alteplase, Recombinant (Cathflo For Central Catheter Clearance) 1 mg 1X ONCE INT CAT Last administered on 07/19/19at 20:03; Start 07/19/19 at 19:30; Stop 07/19/19 at 19:46; Status DC Alteplase, Recombinant (Cathflo For Central Catheter Clearance) 1 mg 1X ONCE INT CAT Last administered on 07/19/19at 22:05; Start 07/19/19 at 22:00; Stop 07/19/19 at 22:01; Status DC Sodium Chloride 90 meq/Potassium Chloride 15 meq/ Potassium Phosphate 18 mmol/ Magnesium Sulfate 8 meq/Calcium Gluconate 15 meq/ Multivitamins 10 ml/Chromium/ Copper/Manganese/ Seleni/Zn 0.5 ml/ Insulin Human Regular 20 unit/ Total Parenteral Nutrition/Amino Acids/Dextrose/ Fat Emulsion Intravenous 1,400 ml @ 58.333 mls/ hr TPN CONT IV Last administered on 07/20/19at 21:30; Start 07/20/19 at 22:00; Stop 07/21/19 at 21:59; Status DC Dexmedetomidine HCl 400 mcg/ Sodium Chloride 100 ml @ 0 mls/hr CONT PRN IV ANXIETY / AGITATION Last administered on 09/17/19at 12:57; Start 07/21/19 at 08:15; Stop 09/17/19 at 18:31; Status DC Sodium Chloride 500 ml @ 500 mls/hr 1X PRN PRN IV ELEVATED BP, SEE COMMENTS; Start 07/21/19 at 08:15 Atropine Sulfate (ATROPINE 0.5mg SYRINGE) 0.5 mg PRN Q5MIN PRN IV SEE COMMENTS; Start 07/21/19 at 08:15 Furosemide (Lasix) 20 mg 1X ONCE IVP Last administered on 07/21/19at 08:19; Start 07/21/19 at 08:15; Stop 07/21/19 at 08:16; Status DC Lidocaine HCl (Buffered Lidocaine 1%) 3 ml STK-MED ONCE .ROUTE ; Start 07/21/19 at 08:39; Stop 07/21/19 at 08:39; Status DC Lidocaine HCl (Buffered Lidocaine 1%) 6 ml 1X ONCE INJ Last administered on 07/21/19at 09:05; Start 07/21/19 at 09:00; Stop 07/21/19 at 09:06; Status DC Sodium Chloride 90 meq/Potassium Chloride 15 meq/ Potassium Phosphate 18 mmol/ Magnesium Sulfate 8 meq/Calcium Gluconate 15 meq/ Multivitamins 10 ml/Chromium/ Copper/Manganese/ Seleni/Zn 0.5 ml/ Insulin Human Regular 20 unit/ Total Parenteral Nutrition/Amino Acids/Dextrose/ Fat Emulsion Intravenous 1,400 ml @ 58.333 mls/ hr TPN CONT IV Last administered on 07/21/19at 22:45; Start 07/21/19 at 22:00; Stop 07/22/19 at 21:59; Status DC Sodium Chloride 1,000 ml @ 1,000 mls/hr Q1H PRN IV hypotension; Start 07/22/19 at 07:30; Stop 07/22/19 at 13:29; Status DC Albumin Human 200 ml @ 200 mls/hr 1X PRN PRN IV Hypotension Last administered on 07/22/19at 09:36; Start 07/22/19 at 07:30; Stop 07/22/19 at 13:29; Status DC Sodium Chloride (Normal Saline Flush) 10 ml 1X PRN PRN IV AP catheter pack; Start 07/22/19 at 07:30; Stop 07/22/19 at 21:29; Status DC Sodium Chloride (Normal Saline Flush) 10 ml 1X PRN PRN IV LANDMAN catheter pack; Start 07/22/19 at 07:30; Stop 07/23/19 at 07:29; Status DC Sodium Chloride 1,000 ml @ 400 mls/hr Q2H30M PRN IV PATENCY; Start 07/22/19 at 07:30; Stop 07/22/19 at 19:29; Status DC Info (PHARMACY MONITORING -- do not chart) 1 each PRN DAILY PRN MC SEE COMMENTS; Start 07/22/19 at 07:30; Stop 07/22/19 at 13:02; Status DC Info (PHARMACY MONITORING -- do not chart) 1 each PRN DAILY PRN MC SEE COMMENTS; Start 07/22/19 at 07:30; Stop 07/24/19 at 12:45; Status DC Sodium Chloride 90 meq/Potassium Chloride 15 meq/ Potassium Phosphate 10 mmol/ Magnesium Sulfate 8 meq/Calcium Gluconate 15 meq/ Multivitamins 10 ml/Chromium/ Copper/Manganese/ Seleni/Zn 0.5 ml/ Insulin Human Regular 25 unit/ Total Parenteral Nutrition/Amino Acids/Dextrose/ Fat Emulsion Intravenous 1,400 ml @ 58.333 mls/ hr TPN CONT IV Last administered on 07/22/19at 22:19; Start 07/22/19 at 22:00; Stop 07/23/19 at 21:59; Status DC Heparin Sodium (Porcine) (Heparin Sodium) 5,000 unit Q12HR SQ Last administered on 08/14/19at 08:59; Start 07/22/19 at 21:00; Stop 08/14/19 at 10:05; Status DC Ondansetron HCl (Zofran) 4 mg PRN Q6HRS PRN IV NAUSEA/VOMITING; Start 07/25/19 at 07:00; Stop 07/26/19 at 06:59; Status DC Fentanyl Citrate (Fentanyl 2ml Vial) 25 mcg PRN Q5MIN PRN IV MILD PAIN 1-3; Start 07/25/19 at 07:00; Stop 07/26/19 at 06:59; Status DC Fentanyl Citrate (Fentanyl 2ml Vial) 50 mcg PRN Q5MIN PRN IV MODERATE TO SEVERE PAIN; Start 07/25/19 at 07:00; Stop 07/26/19 at 06:59; Status DC Ringer's Solution 1,000 ml @ 30 mls/hr Q24H IV ; Start 07/25/19 at 07:00; Stop 07/25/19 at 18:59; Status DC Lidocaine HCl (Xylocaine-Mpf 1% 2ml Vial) 2 ml PRN 1X PRN ID PRIOR TO IV START; Start 07/25/19 at 07:00; Stop 07/26/19 at 06:59; Status DC Prochlorperazine Edisylate (Compazine) 5 mg PACU PRN PRN IV NAUSEA, MRX1; Start 07/25/19 at 07:00; Stop 07/26/19 at 06:59; Status DC Sodium Chloride 1,000 ml @ 1,000 mls/hr Q1H PRN IV hypotension; Start 07/23/19 at 09:10; Stop 07/23/19 at 15:09; Status DC Albumin Human 200 ml @ 200 mls/hr 1X PRN PRN IV Hypotension Last administered on 07/23/19at 10:10; Start 07/23/19 at 09:15; Stop 07/23/19 at 15:14; Status DC Sodium Chloride 1,000 ml @ 400 mls/hr Q2H30M PRN IV PATENCY; Start 07/23/19 at 09:10; Stop 07/23/19 at 21:09; Status DC Info (PHARMACY MONITORING -- do not chart) 1 each PRN DAILY PRN MC SEE COMMENTS; Start 07/23/19 at 09:15; Stop 07/24/19 at 12:45; Status DC Info (PHARMACY MONITORING -- do not chart) 1 each PRN DAILY PRN MC SEE COMMENTS; Start 07/23/19 at 09:15; Stop 07/24/19 at 12:45; Status DC Sodium Chloride 90 meq/Potassium Chloride 15 meq/ Potassium Phosphate 10 mmol/ Magnesium Sulfate 8 meq/Calcium Gluconate 15 meq/ Multivitamins 10 ml/Chromium/ Copper/Manganese/ Seleni/Zn 0.5 ml/ Insulin Human Regular 25 unit/ Total Parenteral Nutrition/Amino Acids/Dextrose/ Fat Emulsion Intravenous 1,400 ml @ 58.333 mls/ hr TPN CONT IV Last administered on 07/23/19at 22:10; Start 07/23/19 at 22:00; Stop 07/24/19 at 21:59; Status DC Magnesium Sulfate 50 ml @ 25 mls/hr PRN DAILY PRN IV for Mag < 1.7 on am labs Last administered on 10/06/19at 10:57; Start 07/24/19 at 09:15 Sodium Chloride 90 meq/Potassium Chloride 15 meq/ Potassium Phosphate 10 mmol/ Magnesium Sulfate 8 meq/Calcium Gluconate 15 meq/ Multivitamins 10 ml/Chromium/ Copper/Manganese/ Seleni/Zn 0.5 ml/ Insulin Human Regular 25 unit/ Total Parenteral Nutrition/Amino Acids/Dextrose/ Fat Emulsion Intravenous 1,400 ml @ 58.333 mls/ hr TPN CONT IV Last administered on 07/24/19at 21:20; Start 07/24/19 at 22:00; Stop 07/25/19 at 21:59; Status DC Sodium Chloride 1,000 ml @ 1,000 mls/hr Q1H PRN IV hypotension; Start 07/24/19 at 12:23; Stop 07/24/19 at 18:22; Status DC Albumin Human 200 ml @ 200 mls/hr 1X ONCE IV Last administered on 07/24/19at 13:34; Start 07/24/19 at 12:30; Stop 07/24/19 at 13:29; Status DC Diphenhydramine HCl (Benadryl) 25 mg 1X PRN PRN IV ITCHING; Start 07/24/19 at 12:30; Stop 07/25/19 at 12:29; Status DC Diphenhydramine HCl (Benadryl) 25 mg 1X PRN PRN IV ITCHING; Start 07/24/19 at 12:30; Stop 07/25/19 at 12:29; Status DC Info (PHARMACY MONITORING -- do not chart) 1 each PRN DAILY PRN MC SEE COMMENTS; Start 07/24/19 at 12:30; Status Cancel Bupivacaine HCl/ Epinephrine Bitart (Sensorcain-Epi 0.5%-1:[id number] Mpf) 30 ml STK-MED ONCE .ROUTE Last administered on 07/25/19at 11:44; Start 07/25/19 at 11:00; Stop 07/25/19 at 11:01; Status DC Cellulose (Surgicel Fibrillar 1x2) 1 each STK-MED ONCE .ROUTE ; Start 07/25/19 at 11:00; Stop 07/25/19 at 11:01; Status DC Sodium Chloride 90 meq/Potassium Chloride 15 meq/ Potassium Phosphate 10 mmol/ Magnesium Sulfate 12 meq/Calcium Gluconate 15 meq/ Multivitamins 10 ml/Chromium/ Copper/Manganese/ Seleni/Zn 0.5 ml/ Insulin Human Regular 25 unit/ Total Parenteral Nutrition/Amino Acids/Dextrose/ Fat Emulsion Intravenous 1,400 ml @ 58.333 mls/ hr TPN CONT IV Last administered on 07/25/19at 22:24; Start 07/25/19 at 22:00; Stop 07/26/19 at 21:59; Status DC Propofol 20 ml @ As Directed STK-MED ONCE IV ; Start 07/25/19 at 11:07; Stop 07/25/19 at 11:07; Status DC Cellulose (Surgicel Hemostat 4x8) 1 each STK-MED ONCE .ROUTE Last administered on 07/25/19at 11:44; Start 07/25/19 at 11:55; Stop 07/25/19 at 11:56; Status DC Sevoflurane (Ultane) 60 ml STK-MED ONCE IH ; Start 07/25/19 at 12:46; Stop 07/25/19 at 12:46; Status DC Sodium Chloride 1,000 ml @ 1,000 mls/hr Q1H PRN IV hypotension; Start 07/25/19 at 13:51; Stop 07/25/19 at 19:50; Status DC Albumin Human 200 ml @ 200 mls/hr 1X PRN PRN IV Hypotension Last administered on 07/25/19at 14:51; Start 07/25/19 at 14:00; Stop 07/25/19 at 19:59; Status DC Diphenhydramine HCl (Benadryl) 25 mg 1X PRN PRN IV ITCHING; Start 07/25/19 at 14:00; Stop 07/26/19 at 13:59; Status DC Diphenhydramine HCl (Benadryl) 25 mg 1X PRN PRN IV ITCHING; Start 07/25/19 at 14:00; Stop 07/26/19 at 13:59; Status DC Sodium Chloride 1,000 ml @ 400 mls/hr Q2H30M PRN IV PATENCY; Start 07/25/19 at 13:51; Stop 07/26/19 at 01:50; Status DC Info (PHARMACY MONITORING -- do not chart) 1 each PRN DAILY PRN MC SEE COMMENTS; Start 07/25/19 at 14:00; Stop 07/28/19 at 08:16; Status DC Heparin Sodium (Porcine) (Hep Lock Adult) 500 unit STK-MED ONCE IVP ; Start 07/26/19 at 09:29; Stop 07/26/19 at 09:30; Status DC Sodium Chloride 1,000 ml @ 1,000 mls/hr Q1H PRN IV hypotension; Start 07/26/19 at 10:43; Stop 07/26/19 at 16:42; Status DC Sodium Chloride 1,000 ml @ 400 mls/hr Q2H30M PRN IV PATENCY; Start 07/26/19 at 10:43; Stop 07/26/19 at 22:42; Status DC Info (PHARMACY MONITORING -- do not chart) 1 each PRN DAILY PRN MC SEE COMMENTS; Start 07/26/19 at 10:45; Status UNV Info (PHARMACY MONITORING -- do not chart) 1 each PRN DAILY PRN MC SEE COMMENTS; Start 07/26/19 at 10:45; Status UNV Sodium Chloride 90 meq/Potassium Chloride 15 meq/ Magnesium Sulfate 12 meq/Calcium Gluconate 15 meq/ Multivitamins 10 ml/Chromium/ Copper/Manganese/ Seleni/Zn 0.5 ml/ Insulin Human Regular 25 unit/ Total Parenteral Nutrition/Amino Acids/Dextrose/ Fat Emulsion Intravenous 1,400 ml @ 58.333 mls/ hr TPN CONT IV Last administered on 07/26/19at 22:13; Start 07/26/19 at 22:00; Stop 07/27/19 at 21:59; Status DC Sodium Chloride 1,000 ml @ 1,000 mls/hr Q1H PRN IV hypotension; Start 07/27/19 at 07:50; Stop 07/27/19 at 13:49; Status DC Albumin Human 200 ml @ 200 mls/hr 1X ONCE IV ; Start 07/27/19 at 08:00; Stop 07/27/19 at 08:53; Status DC Diphenhydramine HCl (Benadryl) 25 mg 1X PRN PRN IV ITCHING; Start 07/27/19 at 08:00; Stop 07/28/19 at 07:59; Status DC Diphenhydramine HCl (Benadryl) 25 mg 1X PRN PRN IV ITCHING; Start 07/27/19 at 08:00; Stop 07/28/19 at 07:59; Status DC Info (PHARMACY MONITORING -- do not chart) 1 each PRN DAILY PRN MC SEE COMMENTS; Start 07/27/19 at 08:00; Stop 07/28/19 at 08:16; Status DC Albumin Human 50 ml @ 50 mls/hr 1X ONCE IV ; Start 07/27/19 at 08:53; Stop 07/27/19 at 08:56; Status DC Albumin Human 200 ml @ 50 mls/hr PRN 1X PRN IV HYPOTENSION Last administered on 08/02/19at 11:54; Start 07/27/19 at 09:00; Stop 09/08/19 at 11:14; Status DC Meropenem 500 mg/ Sodium Chloride 50 ml @ 100 mls/hr Q12H IV Last administered on 08/16/19at 10:45; Start 07/27/19 at 10:00; Stop 08/16/19 at 12:37; Status DC Sodium Chloride 90 meq/Magnesium Sulfate 12 meq/ Calcium Gluconate 15 meq/ Multivitamins 10 ml/Chromium/ Copper/Manganese/ Seleni/Zn 0.5 ml/ Insulin Human Regular 25 unit/ Total Parenteral Nutrition/Amino Acids/Dextrose/ Fat Emulsion Intravenous 1,400 ml @ 58.333 mls/ hr TPN CONT IV Last administered on 07/27/19at 21:41; Start 07/27/19 at 22:00; Stop 07/28/19 at 21:59; Status DC Sodium Chloride 1,000 ml @ 1,000 mls/hr Q1H PRN IV hypotension; Start 07/28/19 at 07:58; Stop 07/28/19 at 13:57; Status DC Albumin Human 200 ml @ 200 mls/hr 1X PRN PRN IV Hypotension Last administered on 07/28/19at 09:30; Start 07/28/19 at 08:00; Stop 07/28/19 at 13:59; Status DC Sodium Chloride 1,000 ml @ 400 mls/hr Q2H30M PRN IV PATENCY; Start 07/28/19 at 07:58; Stop 07/28/19 at 19:57; Status DC Info (PHARMACY MONITORING -- do not chart) 1 each PRN DAILY PRN MC SEE COMMENTS; Start 07/28/19 at 08:00; Status Cancel Info (PHARMACY MONITORING -- do not chart) 1 each PRN DAILY PRN MC SEE COMMENTS; Start 07/28/19 at 08:15; Status UNV Sodium Chloride 90 meq/Potassium Phosphate 5 mmol/ Magnesium Sulfate 12 meq/Calcium Gluconate 15 meq/ Multivitamins 10 ml/Chromium/ Copper/Manganese/ Seleni/Zn 0.5 ml/ Insulin Human Regular 30 unit/ Total Parenteral Nutrition/Amino Acids/Dextrose/ Fat Emulsion Intravenous 1,400 ml @ 58.333 mls/ hr TPN CONT IV Last administered on 07/28/19at 22:08; Start 07/28/19 at 22:00; Stop 07/29/19 at 21:59; Status DC Linezolid/Dextrose 300 ml @ 300 mls/hr Q12HR IV Last administered on 08/08/19at 20:40; Start 07/29/19 at 11:00; Stop 08/09/19 at 08:10; Status DC Sodium Chloride 90 meq/Potassium Phosphate 15 mmol/ Magnesium Sulfate 12 meq/Calcium Gluconate 15 meq/ Multivitamins 10 ml/Chromium/ Copper/Manganese/ Seleni/Zn 0.5 ml/ Insulin Human Regular 30 unit/ Total Parenteral Nutrition /Amino Acids/Dextrose/ Fat Emulsion Intravenous 1,400 ml @ 58.333 mls/ hr TPN CONT IV Last administered on 07/29/19at 21:49; Start 07/29/19 at 22:00; Stop 07/30/19 at 21:59; Status DC Sodium Chloride 90 meq/Potassium Phosphate 15 mmol/ Magnesium Sulfate 12 meq/Calcium Gluconate 15 meq/ Multivitamins 10 ml/Chromium/ Copper/Manganese/ Seleni/Zn 0.5 ml/ Insulin Human Regular 40 unit/ Total Parenteral Nutrition/Amino Acids/Dextrose/ Fat Emulsion Intravenous 1,400 ml @ 58.333 mls/ hr TPN CONT IV Last administered on 07/30/19at 21:21; Start 07/30/19 at 22:00; Stop 07/31/19 at 21:59; Status DC Sodium Chloride 1,000 ml @ 1,000 mls/hr Q1H PRN IV hypotension; Start 07/30/19 at 13:26; Stop 07/30/19 at 19:25; Status DC Albumin Human 200 ml @ 200 mls/hr 1X PRN PRN IV Hypotension Last administered on 07/30/19at 15:00; Start 07/30/19 at 13:30; Stop 07/30/19 at 19:29; Status DC Sodium Chloride (Normal Saline Flush) 10 ml 1X PRN PRN IV AP catheter pack; Start 07/30/19 at 13:30; Stop 07/31/19 at 13:29; Status DC Sodium Chloride (Normal Saline Flush) 10 ml 1X PRN PRN IV LANDMAN catheter pack; Start 07/30/19 at 13:30; Stop 07/31/19 at 13:29; Status DC Sodium Chloride 1,000 ml @ 400 mls/hr Q2H30M PRN IV PATENCY; Start 07/30/19 at 13:26; Stop 07/31/19 at 01:25; Status DC Info (PHARMACY MONITORING -- do not chart) 1 each PRN DAILY PRN MC SEE COMMENTS; Start 07/30/19 at 13:30; Stop 07/30/19 at 13:33; Status DC Info (PHARMACY MONITORING -- do not chart) 1 each PRN DAILY PRN MC SEE COMMENTS; Start 07/30/19 at 13:30; Stop 07/30/19 at 13:34; Status DC Sodium Chloride 90 meq/Potassium Phosphate 19 mmol/ Magnesium Sulfate 12 meq/Calcium Gluconate 15 meq/ Multivitamins 10 ml/Chromium/ Copper/Manganese/ Seleni/Zn 0.5 ml/ Insulin Human Regular 40 unit/ Total Parenteral Nutrition/ Amino Acids/Dextrose/ Fat Emulsion Intravenous 1,400 ml @ 58.333 mls/ hr TPN CONT IV Last administered on 07/31/19at 21:54; Start 07/31/19 at 22:00; Stop 08/01/19 at 21:59; Status DC Sodium Chloride 1,000 ml @ 1,000 mls/hr Q1H PRN IV hypotension; Start 08/01/19 at 09:35; Stop 08/01/19 at 15:34; Status DC Albumin Human 200 ml @ 200 mls/hr 1X PRN PRN IV Hypotension; Start 08/01/19 at 09:45; Stop 08/01/19 at 15:44; Status DC Diphenhydramine HCl (Benadryl) 25 mg 1X PRN PRN IV ITCHING; Start 08/01/19 at 09:45; Stop 08/02/19 at 09:44; Status DC Diphenhydramine HCl (Benadryl) 25 mg 1X PRN PRN IV ITCHING; Start 08/01/19 at 09:45; Stop 08/02/19 at 09:44; Status DC Sodium Chloride 1,000 ml @ 400 mls/hr Q2H30M PRN IV PATENCY; Start 08/01/19 at 09:35; Stop 08/01/19 at 21:34; Status DC Info (PHARMACY MONITORING -- do not chart) 1 each PRN DAILY PRN MC SEE COMMENTS; Start 08/01/19 at 09:45; Status Cancel Sodium Chloride 100 meq/Potassium Phosphate 19 mmol/ Magnesium Sulfate 12 meq/Calcium Gluconate 15 meq/ Multivitamins 10 ml/Chromium/ Copper/Manganese/ Seleni/Zn 0.5 ml/ Insulin Human Regular 40 unit/ Potassium Chloride 20 meq/ Tota l Parenteral Nutrition/Amino Acids/Dextrose/ Fat Emulsion Intravenous 1,400 ml @ 58.333 mls/ hr TPN CONT IV Last administered on 08/01/19at 22:02; Start 08/01/19 at 22:00; Stop 08/02/19 at 21:59; Status DC Furosemide (Lasix) 40 mg 1X ONCE IVP Last administered on 08/01/19at 14:39; Start 08/01/19 at 14:30; Stop 08/01/19 at 14:31; Status DC Metronidazole 100 ml @ 100 mls/hr Q8HRS IV Last administered on 08/09/19at 06:04; Start 08/02/19 at 10:00; Stop 08/09/19 at 08:10; Status DC Sodium Chloride 1,000 ml @ 1,000 mls/hr Q1H PRN IV hypotension; Start 08/02/19 at 08:00; Stop 08/02/19 at 13:59; Status DC Albumin Human 200 ml @ 200 mls/hr 1X PRN PRN IV Hypotension; Start 08/02/19 at 08:00; Stop 08/02/19 at 13:59; Status DC Sodium Chloride 1,000 ml @ 400 mls/hr Q2H30M PRN IV PATENCY; Start 08/02/19 at 08:00; Stop 08/02/19 at 19:59; Status DC Info (PHARMACY MONITORING -- do not chart) 1 each PRN DAILY PRN MC SEE COMMENTS; Start 08/02/19 at 11:30; Status UNV Info (PHARMACY MONITORING -- do not chart) 1 each PRN DAILY PRN MC SEE COMMENTS; Start 08/02/19 at 11:30; Stop 08/04/19 at 12:13; Status DC Sodium Chloride 100 meq/Potassium Phosphate 19 mmol/ Magnesium Sulfate 12 meq/Calcium Gluconate 15 meq/ Multivitamins 10 ml/Chromium/ Copper/Manganese/ Seleni/Zn 0.5 ml/ Insulin Human Regular 40 unit/ Potassium Chloride 20 meq/ Total Parenteral Nutrition/Amino Acids/Dextrose/ Fat Emulsion Intravenous 1,400 ml @ 58.333 mls/ hr TPN CONT IV Last administered on 08/02/19at 21:52; Start 08/02/19 at 22:00; Stop 08/03/19 at 21:59; Status DC Sodium Chloride (Normal Saline Flush) 10 ml QSHIFT PRN IV AFTER MEDS AND BLOOD DRAWS; Start 08/02/19 at 15:00; Stop 08/30/19 at 11:27; Status DC Sodium Chloride (Normal Saline Flush) 10 ml PRN Q5MIN PRN IV AFTER MEDS AND BLOOD DRAWS; Start 08/02/19 at 15:00 Sodium Chloride (Normal Saline Flush) 20 ml PRN Q5MIN PRN IV AFTER MEDS AND BLOOD DRAWS; Start 08/02/19 at 15:00 Sodium Chloride 100 meq/Potassium Phosphate 19 mmol/ Magnesium Sulfate 12 meq/Calcium Gluconate 15 meq/ Multivitamins 10 ml/Chromium/ Copper/Manganese/ Seleni/Zn 0.5 ml/ Insulin Human Regular 40 unit/ Potassium Chloride 20 meq/ Total Parenteral Nutrition/Amino Acids/Dextrose/ Fat Emulsion Intravenous 1,400 ml @ 58.333 mls/ hr TPN CONT IV Last administered on 08/03/19at 21:20; Start 08/03/19 at 22:00; Stop 08/04/19 at 21:59; Status DC Lidocaine HCl (Buffered Lidocaine 1%) 3 ml STK-MED ONCE .ROUTE ; Start 08/03/19 at 13:16; Stop 08/03/19 at 13:16; Status DC Lidocaine HCl (Buffered Lidocaine 1%) 6 ml 1X ONCE INJ Last administered on 08/03/19at 13:45; Start 08/03/19 at 13:30; Stop 08/03/19 at 13:31; Status DC Albumin Human 100 ml @ 100 mls/hr 1X ONCE IV Last administered on 08/03/19at 15:41; Start 08/03/19 at 15:00; Stop 08/03/19 at 15:59; Status DC Albumin Human 50 ml @ 50 mls/hr 1X ONCE IV Last administered on 08/03/19at 15:00; Start 08/03/19 at 15:00; Stop 08/03/19 at 15:59; Status DC Info (PHARMACY MONITORING -- do not chart) 1 each PRN DAILY PRN MC SEE COMMENTS; Start 08/04/19 at 11:30; Status Cancel Info (PHARMACY MONITORING -- do not chart) 1 each PRN DAILY PRN MC SEE COMMENTS; Start 08/04/19 at 11:30; Status UNV Sodium Chloride 100 meq/Potassium Phosphate 10 mmol/ Magnesium Sulfate 12 meq/Calcium Gluconate 15 meq/ Multivitamins 10 ml/Chromium/ Copper/Manganese/ Seleni/Zn 0.5 ml/ Insulin Human Regular 35 unit/ Potassium Chloride 20 meq/ Total Parenteral Nutrition/Amino Acids/Dextrose/ Fat Emulsion Intravenous 1,400 ml @ 58.333 mls/ hr TPN CONT IV Last administered on 08/04/19at 22:10; Start 08/04/19 at 22:00; Stop 08/05/19 at 21:59; Status DC Sodium Chloride 100 meq/Potassium Phosphate 5 mmol/ Magnesium Sulfate 12 meq/Calcium Gluconate 15 meq/ Multivitamins 10 ml/Chromium/ Copper/Manganese/ Seleni/Zn 0.5 ml/ Insulin Human Regular 35 unit/ Potassium Chloride 20 meq/ Total Parenteral Nutrition/Amino Acids/Dextrose/ Fat Emulsion Intravenous 1,400 ml @ 58.333 mls/ hr TPN CONT IV Last administered on 08/05/19at 22:59; Start 08/05/19 at 22:00; Stop 08/06/19 at 21:59; Status DC Sodium Chloride 1,000 ml @ 1,000 mls/hr Q1H PRN IV hypotension; Start 08/06/19 at 08:27; Stop 08/06/19 at 14:26; Status DC Albumin Human 200 ml @ 200 mls/hr 1X PRN PRN IV Hypotension Last administered on 08/06/19at 09:18; Start 08/06/19 at 08:30; Stop 08/06/19 at 14:29; Status DC Sodium Chloride 1,000 ml @ 400 mls/hr Q2H30M PRN IV PATENCY; Start 08/06/19 at 08:27; Stop 08/06/19 at 20:26; Status DC Info (PHARMACY MONITORING -- do not chart) 1 each PRN DAILY PRN MC SEE COMMENTS; Start 08/06/19 at 08:30; Status Cancel Info (PHARMACY MONITORING -- do not chart) 1 each PRN DAILY PRN MC SEE COMMENTS; Start 08/06/19 at 08:30; Stop 08/14/19 at 13:10; Status DC Sodium Chloride 100 meq/Potassium Chloride 40 meq/ Magnesium Sulfate 15 meq/Calcium Gluconate 15 meq/ Multivitamins 10 ml/Chromium/ Copper/Manganese/ Seleni/Zn 0.5 ml/ Insulin Human Regular 35 unit/ Total Parenteral Nutrition/Amino Acids/Dextrose/ Fat Emulsion Intravenous 1,400 ml @ 58.333 mls/ hr TPN CONT IV Last administered on 08/06/19at 22:00; Start 08/06/19 at 22:00; Stop 08/07/19 at 21:59; Status DC Potassium Chloride/Water 100 ml @ 100 mls/hr 1X ONCE IV Last administered on 08/06/19at 17:28; Start 08/06/19 at 14:45; Stop 08/06/19 at 15:44; Status DC Sodium Chloride 100 meq/Potassium Chloride 40 meq/ Magnesium Sulfate 15 meq/Calcium Gluconate 15 meq/ Multivitamins 10 ml/Chromium/ Copper/Manganese/ Seleni/Zn 0.5 ml/ Insulin Human Regular 35 unit/ Total Parenteral Nutrition/Amino Acids/Dextrose/ Fat Emulsion Intravenous 1,400 ml @ 58.333 mls/ hr TPN CONT IV Last administered on 08/07/19at 22:46; Start 08/07/19 at 22:00; Stop 08/08/19 at 21:59; Status DC Sodium Chloride 100 meq/Potassium Chloride 40 meq/ Magnesium Sulfate 20 meq/Calcium Gluconate 15 meq/ Multivitamins 10 ml/Chromium/ Copper/Manganese/ Seleni/Zn 0.5 ml/ Insulin Human Regular 35 unit/ Total Parenteral Nutrition/Amino Acids/Dextrose/ Fat Emulsion Intravenous 1,400 ml @ 58.333 mls/ hr TPN CONT IV Last administered on 08/08/19at 22:31; Start 08/08/19 at 22:00; Stop 08/09/19 at 21:59; Status DC Fentanyl Citrate (Fentanyl 2ml Vial) 50 mcg PRN Q2HR PRN IVP PAIN Last administered on 08/15/19at 13:32; Start 08/08/19 at 21:00; Stop 08/16/19 at 12:53; Status DC Fentanyl Citrate (Fentanyl 2ml Vial) 25 mcg PRN Q2HR PRN IVP PAIN; Start 08/08/19 at 21:00; Stop 08/16/19 at 12:54; Status DC Enoxaparin Sodium (Lovenox 100mg Syringe) 100 mg Q12HR SQ ; Start 08/09/19 at 21:00; Status UNV Amino Acids/ Glycerin/ Electrolytes 1,000 ml @ 75 mls/hr [id number] IV ; Start 08/08/19 at 21:15; Status UNV Sodium Chloride 1,000 ml @ 1,000 mls/hr Q1H PRN IV hypotension; Start 08/09/19 at 07:56; Stop 08/09/19 at 13:55; Status DC Albumin Human 200 ml @ 200 mls/hr 1X PRN PRN IV Hypotension Last administered on 08/09/19at 08:40; Start 08/09/19 at 08:00; Stop 08/09/19 at 13:59; Status DC Sodium Chloride 1,000 ml @ 400 mls/hr Q2H30M PRN IV PATENCY; Start 08/09/19 at 07:56; Stop 08/09/19 at 19:55; Status DC Info (PHARMACY MONITORING -- do not chart) 1 each PRN DAILY PRN MC SEE COMMENTS; Start 08/09/19 at 08:00; Status UNV Info (PHARMACY MONITORING -- do not chart) 1 each PRN DAILY PRN MC SEE COMMENTS; Start 08/09/19 at 08:00; Status UNV Daptomycin 430 mg/ Sodium Chloride 50 ml @ 100 mls/hr Q24H IV Last administered on 08/09/19at 12:35; Start 08/09/19 at 09:00; Stop 08/09/19 at 12:49 ; Status DC Sodium Chloride 100 meq/Potassium Chloride 40 meq/ Magnesium Sulfate 20 meq/Calcium Gluconate 15 meq/ Multivitamins 10 ml/Chromium/ Copper/Manganese/ Seleni/Zn 0.5 ml/ Insulin Human Regular 35 unit/ Total Parenteral Nutrition/Amino Acids/Dextrose/ Fat Emulsion Intravenous 1,400 ml @ 58.333 mls/ hr TPN CONT IV Last administered on 08/09/19at 21:26; Start 08/09/19 at 22:00; Stop 08/10/19 at 21:59; Status DC Daptomycin 430 mg/ Sodium Chloride 50 ml @ 100 mls/hr Q48H IV ; Start 08/11/19 at 09:00; Stop 08/10/19 at 11:55; Status DC Sodium Chloride 100 meq/Potassium Chloride 40 meq/ Magnesium Sulfate 20 meq/Calcium Gluconate 15 meq/ Multivitamins 10 ml/Chromium/ Copper/Manganese/ Seleni/Zn 0.5 ml/ Insulin Human Regular 35 unit/ Total Parenteral Nu trition/Amino Acids/Dextrose/ Fat Emulsion Intravenous 1,400 ml @ 58.333 mls/ hr TPN CONT IV Last administered on 08/10/19at 22:27; Start 08/10/19 at 22:00; Stop 08/11/19 at 21:59; Status DC Daptomycin 430 mg/ Sodium Chloride 50 ml @ 100 mls/hr Q24H IV Last administered on 08/12/19at 15:07; Start 08/10/19 at 13:00; Stop 08/13/19 at 13:15; Status DC Sodium Chloride 100 meq/Potassium Chloride 40 meq/ Magnesium Sulfate 20 meq/Calcium Gluconate 10 meq/ Multivitamins 10 ml/Chromium/ Copper/Manganese/ Seleni/Zn 0.5 ml/ Insulin Human Regular 35 unit/ Total Parenteral Nutrition/Amino Acids/Dextrose/ Fat Emulsion Intravenous 1,400 ml @ 58.333 mls/ hr TPN CONT IV Last administered on 08/12/19at 00:06; Start 08/11/19 at 22:00; Stop 08/12/19 at 21:59; Status DC Alteplase, Recombinant (Cathflo For Central Catheter Clearance) 1 mg 1X ONCE INT CAT Last administered on 08/12/19at 11:44; Start 08/12/19 at 10:45; Stop 08/12/19 at 10:46; Status DC Ondansetron HCl (Zofran) 4 mg PRN Q6HRS PRN IV NAUSEA/VOMITING; Start 08/15/19 at 07:00; Stop 08/16/19 at 06:59; Status DC Fentanyl Citrate (Fentanyl 2ml Vial) 25 mcg PRN Q5MIN PRN IV MILD PAIN 1-3; Start 08/15/19 at 07:00; Stop 08/16/19 at 06:59; Status DC Fentanyl Citrate (Fentanyl 2ml Vial) 50 mcg PRN Q5MIN PRN IV MODERATE TO SEVERE PAIN Last administered on 08/15/19at 10:17; Start 08/15/19 at 07:00; Stop 08/16/19 at 06:59; Status DC Ringer's Solution 1,000 ml @ 30 mls/hr Q24H IV ; Start 08/15/19 at 07:00; Stop 08/15/19 at 18:59; Status DC Lidocaine HCl (Xylocaine-Mpf 1% 2ml Vial) 2 ml PRN 1X PRN ID PRIOR TO IV START; Start 08/15/19 at 07:00; Stop 08/16/19 at 06:59; Status DC Prochlorperazine Edisylate (Compazine) 5 mg PACU PRN PRN IV NAUSEA, MRX1; Start 08/15/19 at 07:00; Stop 08/16/19 at 06:59; Status DC Sodium Acetate 50 meq/Potassium Acetate 55 meq/ Magnesium Sulfate 20 meq/Calcium Gluconate 10 meq/ Multivitamins 10 ml/Chromium/ Copper/Manganese/ Seleni/Zn 0.5 ml/ Insulin Human Regular 35 unit/ Total Parenteral Nutrition/Amino Acids/Dextrose/ Fat Emulsion Intravenous 1,400 ml @ 58.333 mls/ hr TPN CONT IV ; Start 08/12/19 at 22:00; Stop 08/12/19 at 14:15; Status DC Sodium Acetate 50 meq/Potassium Acetate 55 meq/ Magnesium Sulfate 20 meq/Calcium Gluconate 10 meq/ Multivitamins 10 ml/Chromium/ Copper/Manganese/ Seleni/Zn 0.5 ml/ Insulin Human Regular 35 unit/ Total Parenteral Nutrition/Amino Acids/Dextrose/ Fat Emulsion Intravenous 1,800 ml @ 75 mls/hr TPN CONT IV Last administered on 08/12/19at 22:38; Start 08/12/19 at 22:00; Stop 08/13/19 at 21:59; Status DC Sodium Chloride 1,000 ml @ 1,000 mls/hr Q1H PRN IV hypotension; Start 08/12/19 at 15:31; Stop 08/12/19 at 21:30; Status DC Diphenhydramine HCl (Benadryl) 25 mg 1X PRN PRN IV ITCHING; Start 08/12/19 at 15:45; Stop 08/13/19 at 15:44; Status DC Diphenhydramine HCl (Benadryl) 25 mg 1X PRN PRN IV ITCHING; Start 08/12/19 at 15:45; Stop 08/13/19 at 15:44; Status DC Sodium Chloride 1,000 ml @ 400 mls/hr Q2H30M PRN IV PATENCY; Start 08/12/19 at 15:31; Stop 08/13/19 at 03:30; Status DC Info (PHARMACY MONITORING -- do not chart) 1 each PRN DAILY PRN MC SEE COMMENTS; Start 08/12/19 at 15:45; Stop 09/13/19 at 14:14; Status DC Sodium Acetate 50 meq/Potassium Acetate 55 meq/ Magnesium Sulfate 20 meq/Calcium Gluconate 10 meq/ Multivitamins 10 ml/Chromium/ Copper/Manganese/ Seleni/Zn 0.5 ml/ Insulin Human Regular 35 unit/ Total Parenteral Nutrition/Amino Acids/Dextrose/ Fat Emulsion Intravenous 1,800 ml @ 75 mls/hr TPN CONT IV Last administered on 08/13/19at 22:03; Start 08/13/19 at 22:00; Stop 08/14/19 at 21:59; Status DC Daptomycin 430 mg/ Sodium Chloride 50 ml @ 100 mls/hr Q24H IV Last administered on 08/18/19at 13:00; Start 08/13/19 at 13:00; Stop 08/18/19 at 20:58; Status DC Heparin Sodium (Porcine) 1000 unit/Sodium Chloride 1,001 ml @ 1,001 mls/hr 1X ONCE IRR ; Start 08/15/19 at 06:00; Stop 08/15/19 at 06:59; Status DC Potassium Acetate 55 meq/Magnesium Sulfate 20 meq/ Calcium Gluconate 10 meq/ Multivitamins 10 ml/Chromium/ Copper/Manganese/ Seleni/Zn 0.5 ml/ Insulin Human Regular 35 unit/ Total Parenteral Nutrition/Amino Acids/Dextrose/ Fat Emulsion Intravenous 1,920 ml @ 80 mls/hr TPN CONT IV Last administered on 08/14/19at 22:10; Start 08/14/19 at 22:00; Stop 08/15/19 at 21:59; Status DC Dexamethasone Sodium Phosphate (Decadron) 4 mg STK-MED ONCE .ROUTE ; Start 08/15/19 at 10:56; Stop 08/15/19 at 10:57; Status DC Ondansetron HCl (Zofran) 4 mg STK-MED ONCE .ROUTE ; Start 08/15/19 at 10:56; Stop 08/15/19 at 10:57; Status DC Rocuronium Phoenix (Zemuron) 50 mg STK-MED ONCE .ROUTE ; Start 08/15/19 at 1 0:56; Stop 08/15/19 at 10:57; Status DC Fentanyl Citrate (Fentanyl 2ml Vial) 100 mcg STK-MED ONCE .ROUTE ; Start 08/15/19 at 10:56; Stop 08/15/19 at 10:57; Status DC Bupivacaine HCl/ Epinephrine Bitart (Sensorcain-Epi 0.5%-1:104178 Mpf) 30 ml STK-MED ONCE .ROUTE Last administered on 08/15/19at 12:01; Start 08/15/19 at 10:58; Stop 08/15/19 at 10:58; Status DC Cellulose (Surgicel Hemostat 2x14) 1 each STK-MED ONCE .ROUTE ; Start 08/15/19 at 10:58; Stop 08/15/19 at 10:59; Status DC Iohexol (Omnipaque 300 Mg/ml) 50 ml STK-MED ONCE .ROUTE ; Start 08/15/19 at 10:58; Stop 08/15/19 at 10:59; Status DC Cellulose (Surgicel Hemostat 4x8) 1 each STK-MED ONCE .ROUTE ; Start 08/15/19 at 10:58; Stop 08/15/19 at 10:59; Status DC Bisacodyl (Dulcolax Supp) 10 mg STK-MED ONCE .ROUTE ; Start 08/15/19 at 10:59; Stop 08/15/19 at 10:59; Status DC Heparin Sodium (Porcine) 1000 unit/Sodium Chloride 1,001 ml @ 1,001 mls/hr 1X ONCE IRR ; Start 08/15/19 at 12:00; Stop 08/15/19 at 12:59; Status DC Propofol 20 ml @ As Directed STK-MED ONCE IV ; Start 08/15/19 at 11:05; Stop 08/15/19 at 11:05; Status DC Sevoflurane (Ultane) 90 ml STK-MED ONCE IH ; Start 08/15/19 at 11:05; Stop 08/15/19 at 11:05; Status DC Sevoflurane (Ultane) 60 ml STK-MED ONCE IH ; Start 08/15/19 at 12:26; Stop 08/15/19 at 12:27; Status DC Propofol 20 ml @ As Directed STK-MED ONCE IV ; Start 08/15/19 at 12:26; Stop 08/15/19 at 12:27; Status DC Phenylephrine HCl (PHENYLEPHRINE in 0.9% NACL PF) 1 mg STK-MED ONCE IV ; Start 08/15/19 at 12:34; Stop 08/15/19 at 12:34; Status DC Heparin Sodium (Porcine) (Heparin Sodium) 5,000 unit Q12HR SQ Last administered on 08/24/19at 20:57; Start 08/15/19 at 21:00; Stop 08/25/19 at 09:59; Status DC Sodium Chloride (Normal Saline Flush) 3 ml QSHIFT PRN IV AFTER MEDS AND BLOOD DRAWS; Start 08/15/19 at 13:45 Naloxone HCl (Narcan) 0.4 mg PRN Q2MIN PRN IV SEE INSTRUCTIONS Last administered on 09/24/19at 15:15; Start 08/15/19 at 13:45 Sodium Chloride 1,000 ml @ 25 mls/hr Q24H IV Last administered on 09/13/19at 13:37; Start 08/15/19 at 13:37; Stop 09/16/19 at 13:09; Status DC Naloxone HCl (Narcan) 0.4 mg PRN Q2MIN PRN IV SEE INSTRUCTIONS; Start 08/15/19 at 14:30; Status UNV Sodium Chloride 1,000 ml @ 25 mls/hr Q24H IV ; Start 08/15/19 at 14:30; Status UNV Hydromorphone HCl 30 ml @ 0 mls/hr CONT PRN PRN IV PER PROTOCOL Last administered on 08/20/19at 16:08; Start 08/15/19 at 14:30; Stop 08/22/19 at 08:55; Status DC Potassium Acetate 55 meq/Magnesium Sulfate 20 meq/ Calcium Gluconate 10 meq/ Multivitamins 10 ml/Chromium/ Copper/Manganese/ Seleni/Zn 0.5 ml/ Insulin Human Regular 35 unit/ Total Parenteral Nutrition/Amino Acids/Dextrose/ Fat Emulsion Intravenous 1,920 ml @ 80 mls/hr TPN CONT IV Last administered on 08/15/19at 22:01; Start 08/15/19 at 22:00; Stop 08/16/19 at 21:59; Status DC Bumetanide (Bumex) 2 mg [id number] IV Last administered on 08/19/19at 13:50; Start 08/16/19 at 14:00; Stop 08/20/19 at 14:10; Status DC Meropenem 1 gm/ Sodium Chloride 100 ml @ 200 mls/hr Q8HRS IV Last administered on 09/09/19at 05:53; Start 08/16/19 at 14:00; Stop 09/09/19 at 09:31; Status DC Potassium Acetate 55 meq/Magnesium Sulfate 20 meq/ Calcium Gluconate 10 meq/ Multivitamins 10 ml/Chromium/ Copper/Manganese/ Seleni/Zn 0.5 ml/ Insulin Human Regular 35 unit/ Total Parenteral Nutrition/Amino Acids/Dextrose/ Fat Emulsion Intravenous 1,920 ml @ 80 mls/hr TPN CONT IV Last administered on 08/16/19at 22:02; Start 08/16/19 at 22:00; Stop 08/17/19 at 21:59; Status DC Hydromorphone HCl (Dilaudid Standard BUSINESS PROJECT ANALYST) 12 mg STK-MED ONCE IV ; Start 08/15/19 at 14:35; Stop 08/16/19 at 13:53; Status DC Artificial Tears (Artificial Tears) 1 drop PRN Q15MIN PRN OU DRY EYE Last administered on 10/03/19at 03:38; Start 08/17/19 at 05:30 Hydromorphone HCl (Dilaudid Standard BUSINESS PROJECT ANALYST) 12 mg STK-MED ONCE IV ; Start 08/16/19 at 12:05; Stop 08/17/19 at 09:15; Status DC Potassium Acetate 65 meq/Magnesium Sulfate 20 meq/ Calcium Gluconate 10 meq/ Multivitamins 10 ml/Chromium/ Copper/Manganese/ Seleni/Zn 0.5 ml/ Insulin Human Regular 30 unit/ Total Parenteral Nutrition/Amino Acids/Dextrose/ Fat Emulsion Intravenous 1,920 ml @ 80 mls/hr TPN CONT IV Last administered on 08/17/19at 22:22; Start 08/17/19 at 22:00; Stop 08/18/19 at 21:59; Status DC Cyclobenzaprine HCl (Flexeril) 10 mg PRN Q6HRS PRN PO MUSCLE SPASMS; Start 08/18/19 at 10:45 Potassium Acetate 55 meq/Magnesium Sulfate 20 meq/ Calcium Gluconate 10 meq/ Multivitamins 10 ml/Chromium/ Copper/Manganese/ Seleni/Zn 0.5 ml/ Insulin Human Regular 30 unit/ Total Parenteral Nutrition/Amino Acids/Dextrose/ Fat Emulsion Intravenous 1,920 ml @ 80 mls/hr TPN CONT IV Last administered on 08/19/19at 01:00; Start 08/18/19 at 22:00; Stop 08/19/19 at 21:59; Status DC Magnesium Sulfate 50 ml @ 25 mls/hr 1X ONCE IV Last administered on 08/18/19at 17:18; Start 08/18/19 at 12:45; Stop 08/18/19 at 14:44; Status DC Potassium Chloride/Water 100 ml @ 100 mls/hr 1X ONCE IV Last administered on 08/19/19at 11:27; Start 08/19/19 at 12:00; Stop 08/19/19 at 12:59; Status DC Hydromorphone HCl (Dilaudid Standard BUSINESS PROJECT ANALYST) 12 mg STK-MED ONCE IV ; Start 08/17/19 at 10:50; Stop 08/19/19 at 11:02; Status DC Hydromorphone HCl (Dilaudid Standard BUSINESS PROJECT ANALYST) 12 mg STK-MED ONCE IV ; Start 08/18/19 at 13:47; Stop 08/19/19 at 11:03; Status DC Potassium Acetate 30 meq/Magnesium Sulfate 20 meq/ Calcium Gluconate 10 meq/ Multivitamins 10 ml/Chromium/ Copper/Manganese/ Seleni/Zn 0.5 ml/ Insulin Human Regular 30 unit/ Potassium Chloride 30 meq/ Total Parenteral Nutrition/Amino Acids/Dextrose/ Fat Emulsion Intravenous 1,920 ml @ 80 mls/hr TPN CONT IV Last administered on 08/19/19at 22:34; Start 08/19/19 at 22:00; Stop 08/20/19 at 21:59; Status DC Potassium Chloride/Water 100 ml @ 100 mls/hr Q1H IV Last administered on 08/20/19at 13:05; Start 08/20/19 at 07:00; Stop 08/20/19 at 10:59; Status DC Magnesium Sulfate 50 ml @ 25 mls/hr 1X ONCE IV Last administered on 08/20/19at 10:34; Start 08/20/19 at 10:30; Stop 08/20/19 at 12:29; Status DC Potassium Chloride 75 meq/ Magnesium Sulfate 20 meq/Calcium Gluconate 10 meq/ Multivitamins 10 ml/Chromium/ Copper/Manganese/ Seleni/Zn 0.5 ml/ Insulin Human Regular 30 unit/ Total Parenteral Nutrition/Amino Acids/Dextrose/ Fat Emulsion Intravenous 1,920 ml @ 80 mls/hr TPN CONT IV Last administered on 08/20/19at 21:51; Start 08/20/19 at 22:00; Stop 08/21/19 at 22:00; Status DC Potassium Chloride 75 meq/ Magnesium Sulfate 20 meq/Calcium Gluconate 10 meq/ Multivitamins 10 ml/Chromium/ Copper/Manganese/ Seleni/Zn 0.5 ml/ Insulin Human Regular 25 unit/ Total Parenteral Nutrition/Amino Acids/Dextrose/ Fat Emulsion Intravenous 1,920 ml @ 80 mls/hr TPN CONT IV Last administered on 08/21/19at 22:04; Start 08/21/19 at 22:00; Stop 08/22/19 at 21:59; Status DC Hydromorphone HCl (Dilaudid) 0.4 mg PRN Q4HRS PRN IVP PAIN Last administered on 08/22/19at 10:57; Start 08/22/19 at 09:00; Stop 08/22/19 at 18:59; Status DC Micafungin Sodium 100 mg/Dextrose 100 ml @ 100 mls/hr Q24H IV Last administered on 09/13/19at 12:17; Start 08/22/19 at 11:00; Stop 09/14/19 at 09:59; Status DC Daptomycin 485 mg/ Sodium Chloride 50 ml @ 100 mls/hr Q24H IV Last administered on 08/29/19at 13:10; Start 08/22/19 at 11:00; Stop 08/30/19 at 07:44; Status DC Potassium Chloride 75 meq/ Magnesium Sulfate 15 meq/Calcium Gluconate 8 meq/ Multivitamins 10 ml/Chromium/ Copper/Manganese/ Seleni/Zn 0.5 ml/ Insulin Human Regular 25 unit/ Total Parenteral Nutrition/Amino Acids/Dextrose/ Fat Emulsion Intravenous 1,920 ml @ 80 mls/hr TPN CONT IV Last administered on 08/22/19at 23:08; Start 08/22/19 at 22:00; Stop 08/23/19 at 21:59; Status DC Haloperidol Lactate (Haldol Inj) 3 mg 1X ONCE IVP Last administered on 08/22/19at 14:37; Start 08/22/19 at 14:30; Stop 08/22/19 at 14:31; Status DC Hydromorphone HCl (Dilaudid) 1 mg PRN Q4HRS PRN IVP PAIN Last administered on 09/05/19at 06:25; Start 08/22/19 at 19:00; Stop 09/05/19 at 17:10; Status DC Potassium Chloride 75 meq/ Magnesium Sulfate 15 meq/Calcium Gluconate 8 meq/ Multivitamins 10 ml/Chromium/ Copper/Manganese/ Seleni/Zn 0.5 ml/ Insulin Human Regular 20 unit/ Total Parenteral Nutrition/Amino Acids/Dextrose/ Fat Emulsion Intravenous 1,920 ml @ 80 mls/hr TPN CONT IV Last administered on 08/23/19at 22:10; Start 08/23/19 at 22:00; Stop 08/24/19 at 21:59; Status DC Lidocaine HCl (Buffered Lidocaine 1%) 3 ml STK-MED ONCE .ROUTE ; Start 08/24/19 at 11:31; Stop 08/24/19 at 11:31; Status DC Lidocaine HCl (Buffered Lidocaine 1%) 3 ml STK-MED ONCE .ROUTE ; Start 08/24/19 at 12:28; Stop 08/24/19 at 12:29; Status DC Lidocaine HCl (Buffered Lidocaine 1%) 6 ml 1X ONCE INJ Last administered on 08/24/19at 12:53; Start 08/24/19 at 12:45; Stop 08/24/19 at 12:46; Status DC Potassium Chloride 75 meq/ Magnesium Sulfate 15 meq/Calcium Gluconate 8 meq/ Multivitamins 10 ml/Chromium/ Copper/Manganese/ Seleni/Zn 0.5 ml/ Insulin Human Regular 20 unit/ Total Parenteral Nutrition/Amino Acids/Dextrose/ Fat Emulsion Intravenous 1,920 ml @ 80 mls/hr TPN CONT IV Last administered on 08/24/19at 22:00; Start 08/24/19 at 22:00; Stop 08/25/19 at 21:59; Status DC Potassium Chloride 75 meq/ Magnesium Sulfate 15 meq/Calcium Gluconate 8 meq/ Multivitamins 10 ml/Chromium/ Copper/Manganese/ Seleni/Zn 0.5 ml/ Insulin Human Regular 15 unit/ Total Parenteral Nutrition/Amino Acids/Dextrose/ Fat Emulsion Intravenous 1,920 ml @ 80 mls/hr TPN CONT IV Last administered on 08/25/19at 22:28; Start 08/25/19 at 22:00; Stop 08/26/19 at 21:59; Status DC Vecuronium Phoenix (Norcuron Bolus) 6 mg PRN Q6HRS PRN IV VENT ASYNCHRONY; Start 08/25/19 at 19:15; Stop 08/25/19 at 19:35; Status DC Bumetanide (Bumex) 2 mg 1X ONCE IV Last administered on 08/25/19at 22:09; Start 08/25/19 at 19:45; Stop 08/25/19 at 19:46; Status DC Lidocaine HCl (Buffered Lidocaine 1%) 3 ml STK-MED ONCE .ROUTE ; Start 08/26/19 at 07:59; Stop 08/26/19 at 07:59; Status DC Midazolam HCl (Versed) 5 mg STK-MED ONCE .ROUTE ; Start 08/26/19 at 08:36; Stop 08/26/19 at 08:36; Status DC Fentanyl Citrate (Fentanyl 5ml Vial) 250 mcg STK-MED ONCE .ROUTE ; Start 08/26/19 at 08:36; Stop 08/26/19 at 08:37; Status DC Lidocaine HCl (Buffered Lidocaine 1%) 3 ml 1X ONCE IJ Last administered on 08/26/19at 09:30; Start 08/26/19 at 09:15; Stop 08/26/19 at 09:16; Status DC Midazolam HCl (Versed) 5 mg 1X ONCE IV Last administered on 08/26/19at 09:30; Start 08/26/19 at 09:15; Stop 08/26/19 at 09:16; Status DC Fentanyl Citrate (Fentanyl 5ml Vial) 250 mcg 1X ONCE IV Last administered on 08/26/19at 09:30; Start 08/26/19 at 09:15; Stop 08/26/19 at 09:16; Status DC Bumetanide (Bumex) 2 mg DAILY IV Last administered on 09/05/19at 08:07; Start 08/26/19 at 10:00; Stop 09/05/19 at 17:15; Status DC Potassium Chloride 75 meq/ Magnesium Sulfate 15 meq/ Multivitamins 10 ml/Chromium/ Copper/Manganese/ Seleni/Zn 0.5 ml/ Insulin Human Regular 15 unit/ Total Parenteral Nutrition/Amino Acids/Dextrose/ Fat Emulsion Intravenous 1,920 ml @ 80 mls/hr TPN CONT IV Last administered on 08/26/19at 21:59; Start 08/26/19 at 22:00; Stop 08/27/19 at 21:59; Status DC Metoclopramide HCl (Reglan Vial) 10 mg PRN Q3HRS PRN IVP NAUSEA/VOMITING-3rd choice Last administered on 09/01/19at 04:25; Start 08/27/19 at 16:45 Potassium Chloride 75 meq/ Magnesium Sulfate 15 meq/ Multivitamins 10 ml/Chromium/ Copper/Manganese/ Seleni/Zn 0.5 ml/ Insulin Human Regular 15 unit/ Total Parenteral Nutrition/Amino Acids/Dextrose/ Fat Emulsion Intravenous 1,920 ml @ 80 mls/hr TPN CONT IV Last administered on 08/27/19at 22:41; Start 08/27/19 at 22:00; Stop 08/28/19 at 21:59; Status DC Magnesium Sulfate 50 ml @ 25 mls/hr 1X ONCE IV Last administered on 08/28/19at 10:44; Start 08/28/19 at 09:00; Stop 08/28/19 at 10:59; Status DC Potassium Chloride/Water 100 ml @ 100 mls/hr 1X ONCE IV Last administered on 08/28/19at 09:37; Start 08/28/19 at 09:00; Stop 08/28/19 at 09:59; Status DC Duloxetine HCl (Cymbalta) 30 mg DAILY PO Last administered on 08/29/19at 09:48; Start 08/28/19 at 14:00; Stop 08/31/19 at 10:25; Status DC Potassium Chloride 80 meq/ Magnesium Sulfate 20 meq/ Multivitamins 10 ml/Chromium/ Copper/Manganese/ Seleni/Zn 0.5 ml/ Insulin Human Regular 15 unit/ Total Parenteral Nutrition/Amino Acids/Dextrose/ Fat Emulsion Intravenous 1,920 ml @ 80 mls/hr TPN CONT IV Last administered on 08/28/19at 21:42; Start 08/28/19 at 22:00; Stop 08/29/19 at 21:59; Status DC Potassium Chloride 80 meq/ Magnesium Sulfate 20 meq/ Multivitamins 10 ml/Chromium/ Copper/Manganese/ Seleni/Zn 0.5 ml/ Insulin Human Regular 15 unit/ Total Parenteral Nutrition/Amino Acids/Dextrose/ Fat Emulsion Intravenous 1,920 ml @ 80 mls/hr TPN CONT IV Last administered on 08/29/19at 22:20; Start 08/29/19 at 22:00; Stop 08/30/19 at 21:59; Status DC Lidocaine HCl (Buffered Lidocaine 1%) 3 ml STK-MED ONCE .ROUTE ; Start 08/30/19 at 09:54; Stop 08/30/19 at 09:55; Status DC Hydromorphone HCl (Dilaudid Standard [employer]) 12 mg STK-MED ONCE IV ; Start 08/19/19 at 15:50; Stop 08/30/19 at 11:24; Status DC Potassium Chloride 80 meq/ Magnesium Sulfate 20 meq/ Multivitamins 10 ml/Chromium/ Copper/Manganese/ Seleni/Zn 0.5 ml/ Insulin Human Regular 15 unit/ Total Parenteral Nutrition/Amino Acids/Dextrose/ Fat Emulsion Intravenous 1,920 ml @ 80 mls/hr TPN CONT IV Last administered on 08/30/19at 21:40; Start 08/30/19 at 22:00; Stop 08/31/19 at 21:59; Status DC Lidocaine HCl (Buffered Lidocaine 1%) 6 ml 1X ONCE INJ Last administered on 08/30/19at 14:15; Start 08/30/19 at 14:15; Stop 08/30/19 at 14:16; Status DC Potassium Chloride 80 meq/ Magnesium Sulfate 20 meq/ Multivitamins 10 ml/Chromium/ Copper/Manganese/ Seleni/Zn 1 ml/ Insulin Human Regular 15 unit/ Total Parenteral Nutrition/Amino Acids/Dextrose/ Fat Emulsion Intravenous 1,920 ml @ 80 mls/hr TPN CONT IV Last administered on 08/31/19at 22:04; Start 08/31/19 at 22:00; Stop 09/01/19 at 21:59; Status DC Potassium Chloride/Water 100 ml @ 100 mls/hr 1X ONCE IV Last administered on 09/01/19at 11:34; Start 09/01/19 at 11:00; Stop 09/01/19 at 11:59; Status DC Potassium Chloride 90 meq/ Magnesium Sulfate 20 meq/ Multivitamins 10 ml/Chromium/ Copper/Manganese/ Seleni/Zn 1 ml/ Insulin Human Regular 15 unit/ Total Parenteral Nutrition/Amino Acids/Dextrose/ Fat Emulsion Intravenous 1,920 ml @ 80 mls/hr TPN CONT IV Last administered on 09/01/19at 22:57; Start 09/01/19 at 22:00; Stop 09/02/19 at 21:59; Status DC Potassium Chloride 90 meq/ Magnesium Sulfate 20 meq/ Multivitamins 10 ml/Chromium/ Copper/Manganese/ Seleni/Zn 1 ml/ Insulin Human Regular 15 unit/ Total Parenteral Nutrition/Amino Acids/Dextrose/ Fat Emulsion Intravenous 1,920 ml @ 80 mls/hr TPN CONT IV Last administered on 09/02/19at 22:48; Start 09/02/19 at 22:00; Stop 09/03/19 at 21:59; Status DC Potassium Chloride 90 meq/ Magnesium Sulfate 20 meq/ Multivitamins 10 ml/Chromium/ Copper/Manganese/ Seleni/Zn 1 ml/ Insulin Human Regular 15 unit/ Total Parenteral Nutrition/Amino Acids/Dextrose/ Fat Emulsion Intravenous 1,890 ml @ 78.75 mls/ hr TPN CONT IV Last administered on 09/03/19at 22:15; Start 09/03/19 at 22:00; Stop 09/04/19 at 21:59; Status DC Linezolid/Dextrose 300 ml @ 300 mls/hr Q12HR IV Last administered on 09/06/19at 21:08; Start 09/04/19 at 09:00; Stop 09/07/19 at 08:11; Status DC Daptomycin 450 mg/ Sodium Chloride 50 ml @ 100 mls/hr Q24H IV Last administered on 09/07/19at 09:25; Start 09/04/19 at 09:00; Stop 09/08/19 at 08:30; Status DC Potassium Chloride 90 meq/ Magnesium Sulfate 20 meq/ Multivitamins 10 ml/Chromium/ Copper/Manganese/ Seleni/Zn 1 ml/ Insulin Human Regular 15 unit/ Total Parenteral Nutrition/Amino Acids/Dextrose/ Fat Emulsion Intravenous 1,890 ml @ 78.75 mls/ hr TPN CONT IV Last administered on 09/04/19at 21:34; Start 09/04/19 at 22:00; Stop 09/05/19 at 21:59; Status DC Lorazepam (Ativan Inj) 2 mg STK-MED ONCE .ROUTE ; Start 09/04/19 at 14:58; Stop 09/04/19 at 14:58; Status DC Metoprolol Tartrate (Lopressor Vial) 5 mg 1X ONCE IVP Last administered on 09/04/19at 15:31; Start 09/04/19 at 15:15; Stop 09/04/19 at 15:16; Status DC Lorazepam (Ativan Inj) 2 mg 1X ONCE IVP Last administered on 09/04/19at 15:30; Start 09/04/19 at 15:15; Stop 09/04/19 at 15:16; Status DC Enoxaparin Sodium (Lovenox 40mg Syringe) 40 mg Q24H SQ Last administered on 09/23/19at 17:44; Start 09/04/19 at 17:00; Stop 09/25/19 at 06:50; Status DC Lorazepam (Ativan Inj) 1 mg PRN Q4HRS PRN IVP ANXIETY / AGITATION MILD-MOD Last administered on 09/18/19at 15:55; Start 09/04/19 at 19:15; Stop 09/20/19 at 11:45; Status DC Lorazepam (Ativan Inj) 2 mg PRN Q4HRS PRN IVP ANXIETY / AGITATION SEVERE Last administered on 09/19/19at 07:55; Start 09/04/19 at 19:15; Stop 09/20/19 at 11:45; Status DC Fentanyl Citrate (Fentanyl 2ml Vial) 50 mcg PRN Q4HRS PRN IVP SEVERE PAIN Last administered on 10/01/19at 05:15; Start 09/05/19 at 13:15; Stop 10/02/19 at 09:29; Status DC Fentanyl Citrate (Fentanyl 2ml Vial) 25 mcg PRN Q4HRS PRN IVP MODERATE PAIN Last administered on 10/01/19at 00:27; Start 09/05/19 at 13:15; Stop 10/02/19 at 09:30; Status DC Potassium Chloride 90 meq/ Magnesium Sulfate 20 meq/ Multivitamins 10 ml/Chromium/ Copper/Manganese/ Seleni/Zn 1 ml/ Insulin Human Regular 15 unit/ Total Parenteral Nutrition/Amino Acids/Dextrose/ Fat Emulsion Intravenous 1,890 ml @ 78.75 mls/ hr TPN CONT IV Last administered on 09/05/19at 22:18; Start 09/05/19 at 22:00; Stop 09/06/19 at 21:59; Status DC Furosemide (Lasix) 40 mg 1X ONCE IVP Last administered on 09/05/19at 21:51; Start 09/05/19 at 21:45; Stop 09/05/19 at 21:48; Status DC Albumin Human 100 ml @ 100 mls/hr 1X PRN PRN IV SEE COMMENTS; Start 09/06/19 at 01:30 Furosemide (Lasix) 40 mg [id number] IVP Last administered on 09/21/19at 08:04; Start 09/06/19 at 14:00; Stop 09/21/19 at 13:07; Status DC Potassium Chloride 90 meq/ Magnesium Sulfate 20 meq/ Multivitamins 10 ml/Chromium/ Copper/Manganese/ Seleni/Zn 1 ml/ Insulin Human Regular 15 unit/ Total Parenteral Nutrition/Amino Acids/Dextrose/ Fat Emulsion Intravenous 1,800 ml @ 75 mls/hr TPN CONT IV Last administered on 09/06/19at 22:31; Start 09/06/19 at 22:00; Stop 09/07/19 at 21:59; Status DC Potassium Chloride 90 meq/ Magnesium Sulfate 20 meq/ Multivitamins 10 ml/Chromium/ Copper/Manganese/ Seleni/Zn 1 ml/ Insulin Human Regular 15 unit/ Total Parenteral Nutrition/Amino Acids/Dextrose/ Fat Emulsion Intravenous 1,800 ml @ 75 mls/hr TPN CONT IV Last administered on 09/07/19at 22:28; Start 09/07/19 at 22:00; Stop 09/08/19 at 21:59; Status DC Potassium Chloride 110 meq/ Magnesium Sulfate 20 meq/ Multivitamins 10 ml/Chromium/ Copper/Manganese/ Seleni/Zn 1 ml/ Insulin Human Regular 15 unit/ Total Parenteral Nutrition/Amino Acids/Dextrose/ Fat Emulsion Intravenous 1,800 ml @ 75 mls/hr TPN CONT IV Last administered on 09/08/19at 22:01; Start 09/08/19 at 22:00; Stop 09/09/19 at 21:59; Status DC Saliva Substitute (Biotene Moisturizing Mouth) 2 spray PRN Q15MIN PRN PO DRY MOUTH; Start 09/08/19 at 11:00 Potassium Chloride 110 meq/ Magnesium Sulfate 20 meq/ Multivitamins 10 ml/Chromium/ Copper/Manganese/ Seleni/Zn 1 ml/ Insulin Human Regular 15 unit/ Total Parenteral Nutrition/Amino Acids/Dextrose/ Fat Emulsion Intravenous 1,800 ml @ 75 mls/hr TPN CONT IV Last administered on 09/09/19at 22:21; Start 09/09/19 at 22:00; Stop 09/10/19 at 21:59; Status DC Potassium Chloride 110 meq/ Magnesium Sulfate 20 meq/ Multivitamins 10 ml/Chromium/ Copper/Manganese/ Seleni/Zn 1 ml/ Insulin Human Regular 15 unit/ Total Parenteral Nutrition/Amino Acids/Dextrose/ Fat Emulsion Intravenous 1,800 ml @ 75 mls/hr TPN CONT IV Last administered on 09/10/19at 22:04; Start 09/10/19 at 22:00; Stop 09/11/19 at 21:59; Status DC Potassium Chloride 110 meq/ Magnesium Sulfate 20 meq/ Multivitamins 10 ml/Chromium/ Copper/Manganese/ Seleni/Zn 1 ml/ Insulin Human Regular 15 unit/ Total Parenteral Nutrition/Amino Acids/Dextrose/ Fat Emulsion Intravenous 1,800 ml @ 75 mls/hr TPN CONT IV Last administered on 09/11/19at 22:48; Start 09/11/19 at 22:00; Stop 09/12/19 at 21:59; Status DC Potassium Chloride 70 meq/ Magnesium Sulfate 20 meq/ Multivitamins 10 ml/Chromium/ Copper/Manganese/ Seleni/Zn 1 ml/ Insulin Human Regular 15 unit/ Total Parenteral Nutrition/Amino Acids/Dextrose/ Fat Emulsion Intravenous 1,800 ml @ 75 mls/hr TPN CONT IV Last administered on 09/12/19at 21:39; Start 09/12/19 at 22:00; Stop 09/13/19 at 21:59; Status DC Meropenem 500 mg/ Sodium Chloride 50 ml @ 100 mls/hr Q6HRS IV Last administered on 09/14/19at 06:02; Start 09/12/19 at 18:00; Stop 09/14/19 at 09:59; Status DC Barium Sulfate (Varibar Thin Liquid Apple) 148 gm 1X ONCE PO ; Start 09/13/19 at 11:45; Stop 09/13/19 at 11:49; Status DC Potassium Chloride 70 meq/ Magnesium Sulfate 20 meq/ Multivitamins 10 ml/Chromium/ Copper/Manganese/ Seleni/Zn 1 ml/ Insulin Human Regular 15 unit/ Total Parenteral Nutrition/Amino Acids/Dextrose/ Fat Emulsion Intravenous 1,800 ml @ 75 mls/hr TPN CONT IV Last administered on 09/13/19at 22:27; Start 09/13/19 at 22:00; Stop 09/14/19 at 21:59; Status DC Piperacillin Sod/ Tazobactam Sod 3.375 gm/Sodium Chloride 50 ml @ 100 mls/hr Q6HRS IV Last administered on 09/22/19at 06:10; Start 09/14/19 at 12:00; Stop 09/22/19 at 07:26; Status DC Potassium Chloride 70 meq/ Magnesium Sulfate 20 meq/ Multivitamins 10 ml/Chromium/ Copper/Manganese/ Seleni/Zn 1 ml/ Insulin Human Regular 15 unit/ Total Parenteral Nutrition/Amino Acids/Dextrose/ Fat Emulsion Intravenous 1,800 ml @ 75 mls/hr TPN CONT IV Last administered on 09/14/19at 22:03; Start 09/14/19 at 22:00; Stop 09/15/19 at 21:59; Status DC Potassium Chloride 70 meq/ Magnesium Sulfate 20 meq/ Multivitamins 10 ml/Chromium/ Copper/Manganese/ Seleni/Zn 1 ml/ Insulin Human Regular 15 unit/ Total Parenteral Nutrition/Amino Acids/Dextrose/ Fat Emulsion Intravenous 1,800 ml @ 75 mls/hr TPN CONT IV Last administered on 09/15/19at 22:33; Start 09/15/19 at 22:00; Stop 09/16/19 at 21:59; Status DC Potassium Chloride 70 meq/ Magnesium Sulfate 20 meq/ Multivitamins 10 ml/Chromium/ Copper/Manganese/ Seleni/Zn 1 ml/ Insulin Human Regular 15 unit/ Total Parenteral Nutrition/Amino Acids/Dextrose/ Fat Emulsion Intravenous 1,800 ml @ 75 mls/hr TPN CONT IV Last administered on 09/16/19at 23:13; Start 09/16/19 at 22:00; Stop 09/17/19 at 21:59; Status DC Potassium Chloride 80 meq/ Magnesium Sulfate 20 meq/ Multivitamins 10 ml/Chromium/ Copper/Manganese/ Seleni/Zn 1 ml/ Insulin Human Regular 15 unit/ Total Parenteral Nutrition/Amino Acids/Dextrose/ Fat Emulsion Intravenous 1,800 ml @ 75 mls/hr TPN CONT IV Last administered on 09/17/19at 22:30; Start 09/17/19 at 22:00; Stop 09/18/19 at 21:59; Status DC Potassium Chloride 80 meq/ Magnesium Sulfate 20 meq/ Multivitamins 10 ml/Chromium/ Copper/Manganese/ Seleni/Zn 1 ml/ Insulin Human Regular 15 unit/ Total Parenteral Nutrition/Amino Acids/Dextrose/ Fat Emulsion Intravenous 1,800 ml @ 75 mls/hr TPN CONT IV Last administered on 09/18/19at 21:54; Start 09/18/19 at 22:00; Stop 09/19/19 at 21:59; Status DC Potassium Chloride/Water 100 ml @ 100 mls/hr 1X ONCE IV Last administered on 09/19/19at 10:15; Start 09/19/19 at 10:00; Stop 09/19/19 at 10:59; Status DC Potassium Chloride 90 meq/ Magnesium Sulfate 20 meq/ Multivitamins 10 ml/Chromium/ Copper/Manganese/ Seleni/Zn 1 ml/ Insulin Human Regular 20 unit/ Total Parenteral Nutrition/Amino Acids/Dextrose/ Fat Emulsion Intravenous 1,800 ml @ 75 mls/hr TPN CONT IV Last administered on 09/19/19at 22:28; Start 09/19/19 at 22:00; Stop 09/20/19 at 21:59; Status DC Potassium Chloride 90 meq/ Magnesium Sulfate 20 meq/ Multivitamins 10 ml/Chromi um/ Copper/Manganese/ Seleni/Zn 1 ml/ Insulin Human Regular 20 unit/ Total Parenteral Nutrition/Amino Acids/Dextrose/ Fat Emulsion Intravenous 1,800 ml @ 75 mls/hr TPN CONT IV Last administered on 09/20/19at 22:08; Start 09/20/19 at 22:00; Stop 09/21/19 at 21:59; Status DC Lorazepam (Ativan Inj) 0.25 mg PRN Q4HRS PRN IVP ANXIETY / AGITATION Last administered on 10/01/19at 02:25; Start 09/21/19 at 07:30 Potassium Chloride 90 meq/ Magnesium Sulfate 20 meq/ Multivitamins 10 ml/Chromium/ Copper/Manganese/ Seleni/Zn 1 ml/ Insulin Human Regular 20 unit/ Total Parenteral Nutrition/Amino Acids/Dextrose/ Fat Emulsion Intravenous 1,800 ml @ 75 mls/hr TPN CONT IV Last administered on 09/21/19at 23:13; Start 09/21/19 at 22:00; Stop 09/22/19 at 21:59; Status DC Furosemide (Lasix) 40 mg DAILY IVP Last administered on 09/23/19at 11:14; Start 09/21/19 at 13:30; Stop 09/25/19 at 09:12; Status DC Fluoxetine HCl (PROzac) 20 mg QHS PEG Last administered on 10/09/19at 22:19; Start 09/22/19 at 21:00 Fentanyl (Duragesic 50mcg/ Hr Patch) 1 patch Q72H TD Last administered on 09/22/19at 21:22; Start 09/22/19 at 21:00; Stop 10/01/19 at 12:00; Status DC Potassium Chloride 40 meq/ Potassium Acetate 60 meq/Magnesium Sulfate 10 meq/ Multivitamins 10 ml/Chromium/ Copper/Manganese/ Seleni/Zn 1 ml/ Insulin Human Regular 20 unit/ Total Parenteral Nutrition/Amino Acids/Dextrose/ Fat Emulsion Intravenous 1,800 ml @ 75 mls/hr TPN CONT IV Last administered on 09/23/19at 00:03; Start 09/22/19 at 22:00; Stop 09/23/19 at 21:59; Status DC Potassium Acetate 80 meq/Magnesium Sulfate 5 meq/ Multivitamins 10 ml/Chromium/ Copper/Manganese/ Seleni/Zn 1 ml/ Insulin Human Regular 20 unit/ Total Parenteral Nutrition/Amino Acids/Dextrose/ Fat Emulsion Intravenous 1,920 ml @ 80 mls/hr TPN CONT IV Last administered on 09/23/19at 21:59; Start 09/23/19 at 22:00; Stop 09/24/19 at 21:59; Status DC Potassium Acetate 60 meq/Magnesium Sulfate 5 meq/ Multivitamins 10 ml/Chromium/ Copper/Manganese/ Seleni/Zn 1 ml/ Insulin Human Regular 30 unit/ Total Parenteral Nutrition/Amino Acids/Dextrose/ Fat Emulsion Intravenous 1,920 ml @ 80 mls/hr TPN CONT IV Last administered on 09/24/19at 21:54; Start 09/24/19 at 22:00; Stop 09/25/19 at 21:59; Status DC Norepinephrine Bitartrate 8 mg/ Dextrose 258 ml @ 13.332 mls/ hr CONT PRN IV PER PROTOCOL Last administered on 09/25/19at 21:46; Start 09/25/19 at 06:30 Albumin Human 500 ml @ 125 mls/hr 1X ONCE IV Last administered on 09/25/19at 08:10; Start 09/25/19 at 08:15; Stop 09/25/19 at 12:14; Status DC Potassium Acetate 40 meq/Magnesium Sulfate 5 meq/ Multivitamins 10 ml/Chromium/ Copper/Manganese/ Seleni/Zn 1 ml/ Insulin Human Regular 30 unit/ Total Parenteral Nutrition/Amino Acids/Dextrose/ Fat Emulsion Intravenous 1,920 ml @ 80 mls/hr TPN CONT IV Last administered on 09/25/19at 22:23; Start 09/25/19 at 22:00; Stop 09/26/19 at 21:59; Status DC Meropenem 1 gm/ Sodium Chloride 100 ml @ 200 mls/hr Q8HRS IV ; Start 09/25/19 at 14:00; Status Cancel Meropenem 1 gm/ Sodium Chloride 100 ml @ 200 mls/hr Q8HRS IV Last administered on 09/25/19at 11:04; Start 09/25/19 at 10:00; Stop 09/25/19 at 13:00; Status DC Meropenem 1 gm/ Sodium Chloride 100 ml @ 200 mls/hr Q12HR IV Last administered on 10/10/19at 08:55; Start 09/25/19 at 21:00 Sodium Chloride 1,000 ml @ 1,000 mls/hr 1X ONCE IV Last administered on 09/25/19at 11:06; Start 09/25/19 at 10:45; Stop 09/25/19 at 11:44; Status DC Micafungin Sodium 100 mg/Dextrose 100 ml @ 100 mls/hr Q24H IV Last administered on 10/09/19at 11:45; Start 09/25/19 at 11:00 Daptomycin 410 mg/ Sodium Chloride 50 ml @ 100 mls/hr Q24H IV Last administered on 09/27/19at 13:33; Start 09/25/19 at 14:00; Stop 09/28/19 at 08:30; Status DC Midazolam HCl (Versed) 2 mg STK-MED ONCE .ROUTE ; Start 09/25/19 at 14:47; Stop 09/25/19 at 14:48; Status DC Fentanyl Citrate (Fentanyl 2ml Vial) 100 mcg STK-MED ONCE .ROUTE ; Start 09/25/19 at 14:47; Stop 09/25/19 at 14:48; Status DC Flumazenil (Romazicon) 0.5 mg STK-MED ONCE IV ; Start 09/25/19 at 14:48; Stop 09/25/19 at 14:48; Status DC Naloxone HCl (Narcan) 0.4 mg STK-MED ONCE .ROUTE ; Start 09/25/19 at 14:48; Stop 09/25/19 at 14:48; Status DC Lidocaine HCl (Lidocaine 1% 20ml Vial) 20 ml STK-MED ONCE .ROUTE ; Start 09/25/19 at 14:48; Stop 09/25/19 at 14:48; Status DC Midazolam HCl (Versed) 2 mg 1X ONCE IV Last administered on 09/25/19at 15:28; Start 09/25/19 at 15:00; Stop 09/25/19 at 15:01; Status DC Fentanyl Citrate (Fentanyl 2ml Vial) 100 mcg 1X ONCE IV Last administered on 09/25/19at 15:28; Start 09/25/19 at 15:00; Stop 09/25/19 at 15:01; Status DC Lidocaine HCl (Lidocaine 1% 20ml Vial) 20 ml 1X ONCE INJ Last administered on 09/25/19at 15:30; Start 09/25/19 at 15:00; Stop 09/25/19 at 15:01; Status DC Sodium Chloride 1,000 ml @ 100 mls/hr Q10H IV Last administered on 10/04/19at 07:30; Start 09/25/19 at 20:00; Stop 10/04/19 at 11:26; Status DC Sodium Bicarbonate (Sodium Bicarb Adult 8.4% Syr) 50 meq 1X ONCE IV Last administered on 09/25/19at 21:47; Start 09/25/19 at 22:00; Stop 09/25/19 at 22:01; Status DC Potassium Acetate 40 meq/Magnesium Sulfate 5 meq/ Multivitamins 10 ml/Chromium/ Copper/Manganese/ Seleni/Zn 1 ml/ Insulin Human Regular 30 unit/ Total Parenteral Nutrition/Amino Acids/Dextrose/ Fat Emulsion Intravenous 1,920 ml @ 80 mls/hr TPN CONT IV Last administered on 09/26/19at 22:28; Start 09/26/19 at 22:00; Stop 09/27/19 at 21:59; Status DC Sodium Chloride 500 ml @ 500 mls/hr 1X ONCE IV Last administered on 09/27/19at 06:39; Start 09/27/19 at 06:45; Stop 09/27/19 at 07:44; Status DC Potassium Acetate 40 meq/Magnesium Sulfate 5 meq/ Multivitamins 10 ml/Chromium/ Copper/Manganese/ Seleni/Zn 1 ml/ Insulin Human Regular 30 unit/ Total Parenteral Nutrition/Amino Acids/Dextrose/ Fat Emulsion Intravenous 1,920 ml @ 80 mls/hr TPN CONT IV Last administered on 09/27/19at 22:03; Start 09/27/19 at 22:00; Stop 09/28/19 at 21:59; Status DC Metoprolol Tartrate (Lopressor Vial) 5 mg PRN Q6HRS PRN IVP HYPERTENSION Last administered on 10/06/19at 10:14; Start 09/28/19 at 09:00 Potassium Acetate 40 meq/Magnesium Sulfate 5 meq/ Multivitamins 10 ml/Chromium/ Copper/Manganese/ Seleni/Zn 1 ml/ Insulin Human Regular 30 unit/ Total Pare nteral Nutrition/Amino Acids/Dextrose/ Fat Emulsion Intravenous 1,920 ml @ 80 mls/hr TPN CONT IV Last administered on 09/28/19at 21:26; Start 09/28/19 at 22:00; Stop 09/29/19 at 21:59; Status DC Potassium Acetate 40 meq/Magnesium Sulfate 5 meq/ Multivitamins 10 ml/Chromium/ Copper/Manganese/ Seleni/Zn 1 ml/ Insulin Human Regular 30 unit/ Total Parenteral Nutrition/Amino Acids/Dextrose/ Fat Emulsion Intravenous 1,920 ml @ 80 mls/hr TPN CONT IV Last administered on 09/29/19at 23:23; Start 09/29/19 at 22:00; Stop 09/30/19 at 21:59; Status DC Potassium Acetate 40 meq/Magnesium Sulfate 5 meq/ Multivitamins 10 ml/Chromium/ Copper/Manganese/ Seleni/Zn 1 ml/ Insulin Human Regular 30 unit/ Total Parenteral Nutrition/Amino Acids/Dextrose/ Fat Emulsion Intravenous 1,920 ml @ 80 mls/hr TPN CONT IV Last administered on 09/30/19at 21:35; Start 09/30/19 at 22:00; Stop 10/01/19 at 21:59; Status DC Furosemide (Lasix) 20 mg 1X ONCE IVP Last administered on 10/01/19at 06:26; Start 10/01/19 at 06:15; Stop 10/01/19 at 06:16; Status DC Methylprednisolone Sodium Succinate (SOLU-Medrol 125MG VIAL) 125 mg 1X ONCE IV Last administered on 10/01/19at 06:26; Start 10/01/19 at 06:15; Stop 10/01/19 at 06:16; Status DC Albuterol/ Ipratropium (Duoneb) 3 ml Q4HRS NEB Last administered on 10/10/19at 08:47; Start 10/01/19 at 08:00 Fentanyl Citrate 30 ml @ 0 mls/hr CONT PRN IV SEE PROTOCOL Last administered on 10/10/19at 05:36; Start 10/01/19 at 06:00 Propofol 100 ml @ 0 mls/hr CONT PRN IV SEE PROTOCOL Last administered on 10/08/19at 23:50; Start 10/01/19 at 06:00 Fentanyl Citrate (Fentanyl 2ml Vial) 25 mcg PRN Q1HR PRN IV SEE COMMENTS; Start 10/01/19 at 06:00 Fentanyl Citrate (Fentanyl 2ml Vial) 50 mcg PRN Q1HR PRN IV SEE COMMENTS; Start 10/01/19 at 06:00 Chlorhexidine Gluconate (Peridex) 15 ml BID MM ; Start 10/01/19 at 09:00; Stop 10/01/19 at 07:58; Status DC Potassium Acetate 40 meq/Magnesium Sulfate 5 meq/ Multivitamins 10 ml/Chromium/ Copper/Manganese/ Seleni/Zn 1 ml/ Insulin Human Regular 30 unit/ Total Parenteral Nutrition/Amino Acids/Dextrose/ Fat Emulsion Intravenous 1,920 ml @ 80 mls/hr TPN CONT IV Last administered on 10/01/19at 21:19; Start 10/01/19 at 22:00; Stop 10/02/19 at 21:59; Status DC Acetylcysteine (Mucomyst 20% Resp Treatment) 600 mg BID NEB Last administered on 10/07/19at 09:33; Start 10/01/19 at 21:00; Stop 10/07/19 at 10:39; Status DC Magnesium Sulfate 100 ml @ 25 mls/hr 1X ONCE IV Last administered on 10/01/19at 15:48; Start 10/01/19 at 15:45; Stop 10/01/19 at 19:44; Status DC Potassium Acetate 40 meq/Magnesium Sulfate 5 meq/ Multivitamins 10 ml/Chromium/ Copper/Manganese/ Seleni/Zn 1 ml/ Insulin Human Regular 30 unit/ Total Pa renteral Nutrition/Amino Acids/Dextrose/ Fat Emulsion Intravenous 1,920 ml @ 80 mls/hr TPN CONT IV Last administered on 10/02/19at 21:35; Start 10/02/19 at 22:00; Stop 10/03/19 at 21:59; Status DC Potassium Chloride/Water 100 ml @ 100 mls/hr Q1H IV Last administered on 10/03/19at 08:31; Start 10/03/19 at 07:00; Stop 10/03/19 at 08:59; Status DC Potassium Acetate 40 meq/Magnesium Sulfate 5 meq/ Multivitamins 10 ml/Chromium/ Copper/Manganese/ Seleni/Zn 1 ml/ Insulin Human Regular 30 unit/ Total Parentera l Nutrition/Amino Acids/Dextrose/ Fat Emulsion Intravenous 1,920 ml @ 80 mls/hr TPN CONT IV Last administered on 10/03/19at 21:54; Start 10/03/19 at 22:00; Stop 10/04/19 at 19:34; Status DC Lidocaine HCl (Buffered Lidocaine 1%) 3 ml STK-MED ONCE .ROUTE ; Start 10/03/19 at 12:14; Stop 10/03/19 at 12:14; Status DC Lidocaine HCl (Buffered Lidocaine 1%) 3 ml 1X ONCE IJ Last administered on 10/03/19at 13:11; Start 10/03/19 at 13:00; Stop 10/03/19 at 13:01; Status DC Magnesium Sulfate 50 ml @ 25 mls/hr 1X ONCE IV ; Start 10/04/19 at 08:15; Stop 10/04/19 at 10:14; Status DC Potassium Acetate 40 meq/Magnesium Sulfate 10 meq/ Multivitamins 10 ml/Chromium/ Copper/Manganese/ Seleni/Zn 1 ml/ Insulin Human Regular 20 unit/ Total Parenteral Nutrition/Amino Acids/Dextrose/ Fat Emulsion Intravenous 1,920 ml @ 80 mls/hr TPN CONT IV Last administered on 10/04/19at 21:32; Start 10/04/19 at 22:00; Stop 10/05/19 at 21:59; Status DC Potassium Chloride/Water 100 ml @ 100 mls/hr Q1H IV Last administered on 10/05/19at 09:12; Start 10/05/19 at 08:00; Stop 10/05/19 at 09:59; Status DC Alteplase, Recombinant (Cathflo For Central Catheter Clearance) 4 mg 1X ONCE INT CAT ; Start 10/05/19 at 09:15; Stop 10/05/19 at 09:16; Status UNV Alteplase, Recombinant (Cathflo For Central Catheter Clearance) 4 mg 1X ONCE INT CAT ; Start 10/05/19 at 09:15; Stop 10/05/19 at 09:16; Status UNV Alteplase, Recombinant (Cathflo For Central Catheter Clearance) 4 mg 1X ONCE INT CAT ; Start 10/05/19 at 09:15; Stop 10/05/19 at 09:16; Status UNV Alteplase, Recombinant 4 mg/ Sodium Chloride 20 ml @ 20 mls/hr 1X ONCE IV Last administered on 10/05/19at 10:10; Start 10/05/19 at 10:00; Stop 10/05/19 at 10:59; Status DC Alteplase, Recombinant 4 mg/ Sodium Chloride 20 ml @ 20 mls/hr 1X ONCE IV Last administered on 10/05/19at 10:09; Start 10/05/19 at 10:00; Stop 10/05/19 at 10:59; Status DC Alteplase, Recombinant 4 mg/ Sodium Chloride 20 ml @ 20 mls/hr 1X ONCE IV Last administered on 10/05/19at 10:09; Start 10/05/19 at 10:00; Stop 10/05/19 at 10:59; Status DC Potassium Acetate 60 meq/Magnesium Sulfate 10 meq/ Multivitamins 10 ml/Chromium/ Copper/Manganese/ Seleni/Zn 1 ml/ Insulin Human Regular 20 unit/ Total Parenteral Nutrition/Amino Acids/Dextrose/ Fat Emulsion Intravenous 1,920 ml @ 80 mls/hr TPN CONT IV Last administered on 10/05/19at 21:55; Start 10/05/19 at 22:00; Stop 10/06/19 at 21:59; Status DC Albumin Human 500 ml @ 125 mls/hr 1X ONCE IV Last administered on 10/06/19at 12:01; Start 10/06/19 at 11:15; Stop 10/06/19 at 15:14; Status DC Sodium Chloride 500 ml @ 500 mls/hr 1X ONCE IV Last administered on 10/06/19at 13:50; Start 10/06/19 at 11:15; Stop 10/06/19 at 12:14; Status DC Potassium Acetate 60 meq/Magnesium Sulfate 14 meq/ Multivitamins 10 ml/Chromium/ Copper/Manganese/ Seleni/Zn 1 ml/ Insulin Human Regular 20 unit/ Total Parenteral Nutrition/Amino Acids/Dextrose/ Fat Emulsion Intravenous 1,920 ml @ 80 mls/hr TPN CONT IV Last administered on 10/06/19at 22:26; Start 10/06/19 at 22:00; Stop 10/07/19 at 21:59; Status DC Ciprofloxacin/ Dextrose 200 ml @ 200 mls/hr Q12HR IV Last administered on 10/10/19at 08:56; Start 10/06/19 at 21:00 Albumin Human 250 ml @ 62.5 mls/hr 1X ONCE IV Last administered on 10/07/19at 11:09; Start 10/07/19 at 11:00; Stop 10/07/19 at 14:59; Status DC Furosemide (Lasix) 20 mg 1X ONCE IVP Last administered on 10/07/19at 14:52; Start 10/07/19 at 10:45; Stop 10/07/19 at 10:49; Status DC Potassium Acetate 60 meq/Magnesium Sulfate 14 meq/ Multivitamins 10 ml/Chromium/ Copper/Manganese/ Seleni/Zn 1 ml/ Insulin Human Regular 15 unit/ Total Parenteral Nutrition/Amino Acids/Dextrose/ Fat Emulsion Intravenous 1,920 ml @ 80 mls/hr TPN CONT IV Last administered on 10/07/19at 22:08; Start 10/07/19 at 22:00; Stop 10/08/19 at 21:59; Status DC Potassium Acetate 60 meq/Magnesium Sulfate 14 meq/ Multivitamins 10 ml/Chromium/ Copper/Manganese/ Seleni/Zn 1 ml/ Insulin Human Regular 15 unit/ Total Pa renteral Nutrition/Amino Acids/Dextrose/ Fat Emulsion Intravenous 1,920 ml @ 80 mls/hr TPN CONT IV Last administered on 10/08/19at 22:12; Start 10/08/19 at 22:00; Stop 10/09/19 at 21:59; Status DC Potassium Acetate 60 meq/Magnesium Sulfate 14 meq/ Multivitamins 10 ml/Chromium/ Copper/Manganese/ Seleni/Zn 1 ml/ Insulin Human Regular 15 unit/ Total Parenteral Nutrition/Amino Acids/Dextrose/ Fat Emulsion Intravenous 1,920 ml @ 80 mls/hr TPN CONT IV Last administered on 10/09/19at 22:22; Start 10/09/19 at 22:00; Stop 10/10/19 at 21:59 Active Scripts Active Reported Bisoprolol Fumarate 5 Mg Tablet 10 Mg PO DAILY Vitals/I & O Vital Sign - Last 24 Hours 10/09/19 10/09/19 10/09/19 10/09/19 10:00 11:31 12:00 12:00 Temp 98.2 98.2 Pulse 121 116 Resp 21 19 B/P (MAP) 102/51 (68) 91/47 (62) Pulse Ox 98 96 98 O2 Delivery Ventilator Tracheal Collar Trach Collar Ventilator O2 Flow Rate 5.0 10/09/19 10/09/19 10/09/19 10/09/19 12:03 12:33 14:00 16:00 Temp 97.9 97.9 Pulse 118 100 Resp 16 20 B/P (MAP) 114/72 (86) 118/75 (89) Pulse Ox 96 98 98 100 O2 Delivery Ventilator Ventilator O2 Flow Rate 5.0 5.0 10/09/19 10/09/19 10/09/19 10/09/19 16:00 16:51 17:00 18:00 Pulse 118 112 Resp 14 14 B/P (MAP) 100/61 (74) 101/63 (76) Pulse Ox 96 98 99 O2 Delivery Trach Collar Tracheal Collar Ventilator Ventilator O2 Flow Rate 5.0 10/09/19 10/09/19 10/09/19 10/09/19 20:00 20:00 20:34 21:00 Temp 98.6 98.6 Pulse 108 110 Resp 13 16 B/P (MAP) 82/42 (55) 86/44 (58) Pulse Ox 99 99 99 O2 Delivery Tracheal Collar Trach Collar Tracheal Collar Tracheal Collar O2 Flow Rate 8.0 10/09/19 10/09/19 10/09/19 10/10/19 22:00 23:00 23:45 00:00 Pulse 108 106 Resp 15 15 B/P (MAP) 97/55 (69) 91/50 (64) Pulse Ox 99 99 98 O2 Delivery Tracheal Collar Tracheal Collar Tracheal Collar Trach Collar O2 Flow Rate 8.0 10/10/19 10/10/19 10/10/1922/20 00:00 01:00 02:00 03:00 Temp 98.5 98.5 Pulse 110 118 114 114 Resp 31 B/P (MAP) 83/58 (66) 111/79 (90) 100/61 (74) 115/77 (90) Pulse Ox 98 96 97 97 O2 Delivery Tracheal Collar Tracheal Collar Tracheal Collar Tracheal Collar 10/10/19 10/10/19 10/10/19 10/10/19 03:23 04:00 04:00 05:00 Temp 98.2 98.2 Pulse 116 118 Resp 24 25 B/P (MAP) 109/61 (77) 116/66 (83) Pulse Ox 98 95 95 O2 Delivery Tracheal Collar Trach Collar Tracheal Collar Tracheal Collar O2 Flow Rate 8.0 10/10/19 10/10/19 10/10/19 10/10/19 06:00 07:00 08:00 08:00 Temp 98.7 98.7 Pulse 116 119 120 Resp B/P (MAP) 108/66 (80) 112/70 (84) 112/69 (83) Pulse Ox 97 96 96 O2 Delivery Tracheal Collar Tracheal Collar Tracheal Collar Trach Collar 10/10/19 10/10/19 08:48 09:00 Pulse 117 Resp 22 B/P (MAP) 119/67 (84) Pulse Ox 96 97 O2 Delivery Tracheal Collar Tracheal Collar O2 Flow Rate 8.0 Intake and Output 10/09/19 10/09/19 10/10/19 14:59 22:59 06:59 Intake Total 315 ml 1462 ml 806 ml Output Total 675 ml 1336 ml 1025 ml Balance -360 ml 126 ml -219 ml Justicifation of Admission Dx: Justifications for Admission: Justification of Admission Dx: Yes ABI AHN MD Oct 10, 2019 09:58
[2019-10-10] MEDS ORDERED: FUROSEMIDE 20 MG/2 ML VIAL. IVP ONE (10:30)
--- NOTE | 2019-10-10 10:56 | PDOC ---
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 SURFACE SUPERVISOR 10/10/19 1056: SURGICAL PROGRESS NOTE Subjective up to chair abdominal pain Vital Signs Vital Signs Date Time Temp Pulse Resp B/P (MAP) Pulse Ox O2 Delivery O2 Flow Rate FiO2 10/10/19 10:00 121 23 120/87 (98) 98 Tracheal Collar 10/10/19 08:48 8.0 10/10/19 08:00 98.7 98.7 I&O Intake and Output 10/10/19 07:00 Intake Total 2583 ml Output Total 3086 ml Balance -503 ml Intake Oral 0 ml IV Total 2583 ml Output Urine Total 2255 ml Gastric Drainage Total 300 ml Chest Tube Drainage Total 335 ml Drainage Total 176 ml Other 20 ml General: Alert, Cooperative HEENT: Other (trach) Abdomen: Soft Labs Laboratory Tests Test 10/08/19 13:03 10/08/19 23:59 10/09/19 05:15 10/09/19 11:51 Glucose (Fingerstick) 170 mg/dL (70-99) 132 mg/dL (70-99) 171 mg/dL (70-99) White Blood Count 10.3 x10^3/uL (4.0-11.0) Red Blood Count 3.10 x10^6/uL (3.50-5.40) Hemoglobin 9.0 g/dL (12.0-15.5) Hematocrit 26.3 % (36.0-47.0) Mean Corpuscular Volume 85 fL (79-100) Mean Corpuscular Hemoglobin 29 pg (25-35) Mean Corpuscular Hemoglobin Concent 34 g/dL (31-37) Red Cell Distribution Width 17.4 % (11.5-14.5) Platelet Count 448 x10^3/uL (140-400) Neutrophils (%) (Auto) 74 % (31-73) Lymphocytes (%) (Auto) 17 % (24-48) Monocytes (%) (Auto) 7 % (0-9) Eosinophils (%) (Auto) 1 % (0-3) Basophils (%) (Auto) 0 % (0-3) Neutrophils # (Auto) 7.7 x10^3/uL (1.8-7.7) Lymphocytes # (Auto) 1.8 x10^3/uL (1.0-4.8) Monocytes # (Auto) 0.8 x10^3/uL (0.0-1.1) Eosinophils # (Auto) 0.1 x10^3/uL (0.0-0.7) Basophils # (Auto) 0.0 x10^3/uL (0.0-0.2) Sodium Level 136 mmol/L (136-145) Potassium Level 4.0 mmol/L (3.5-5.1) Chloride Level 102 mmol/L (98-107) Carbon Dioxide Level 29 mmol/L (21-32) Anion Gap 5 (6-14) Blood Urea Nitrogen 15 mg/dL (7-20) Creatinine 0.6 mg/dL (0.6-1.0) Estimated GFR (Cockcroft-Gault) 106.3 BUN/Creatinine Ratio 25 (6-20) Glucose Level 133 mg/dL (70-99) Calcium Level 9.8 mg/dL (8.5-10.1) Total Bilirubin 0.4 mg/dL (0.2-1.0) Aspartate Amino Transf (AST/SGOT) 19 U/L (15-37) Alanine Aminotransferase (ALT/SGPT) 15 U/L (14-59) Alkaline Phosphatase 113 U/L (46-116) Total Protein 4.3 g/dL (6.4-8.2) Albumin 1.0 g/dL (3.4-5.0) Albumin/Globulin Ratio 0.3 (1.0-1.7) Test 10/09/19 18:25 10/10/19 01:12 Glucose (Fingerstick) 140 mg/dL (70-99) 133 mg/dL (70-99) Laboratory Tests Test 10/09/19 11:51 10/09/19 18:25 10/10/19 01:12 Glucose (Fingerstick) 171 mg/dL (70-99) 140 mg/dL (70-99) 133 mg/dL (70-99) Problem List Problems Medical Problems: (1) Acute pancreatitis Status: Acute (2) Cholelithiasis Status: Acute Assessment/Plan supportive care Justicifation of Admission Dx: Justifications for Admission: Justification of Admission Dx: Yes MARV WYNNE MD 10/10/19 1249: SURGICAL PROGRESS NOTE Assessment/Plan as above continue present care 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 SURFACE SUPERVISOR Oct 10, 2019 10:56 MARV WYNNE MD Oct 10, 2019 12:49
--- NOTE | 2019-10-10 11:01 | PDOC ---
Infectious Disease Note Subjective Subjective Patient is awake says she is feeling better ROS ROS No nausea vomiting diarrhea chest pain shortness of breath Vital Sign Vital Signs Vital Signs Date Time Temp Pulse Resp B/P (MAP) Pulse Ox O2 Delivery O2 Flow Rate FiO2 10/10/19 10:00 121 23 120/87 (98) 98 Tracheal Collar 10/10/19 08:48 8.0 10/10/19 08:00 98.7 98.7 Physical Exam PHYSICAL EXAM GENERAL: Propped up in bed, resting quietly HEENT: NGT in place. NECK: Tracheostomy LUNGS: Diminished aeration bases, no accessory muscle use - CT on left with clear fluid HEART: S1, S2,regular ABDOMEN: Mild distention, bowel sounds present, soft, grimaces to palpation, drains x 3 : Lind ( 09/24) EXTREMITIES: + edema BLE SKIN: no signs of gen rash LUE-PICC (09/15) without signs of complications Labs Lab Laboratory Tests Test 10/09/19 11:51 10/09/19 18:25 10/10/19 01:12 Glucose (Fingerstick) 171 mg/dL (70-99) 140 mg/dL (70-99) 133 mg/dL (70-99) Micro Objective Assessment Fever intermittent could be from underlying pancreatitis vs aspiration ? Ileus with vomiting Abd distention - U/S and CT reviewed s/p 0.4 L of opaque, debris-containing ascites was removed 08/23 Acute pancreatitis with persistent necrosis - 08/14 status post KAYLIN drain placement + C paropsilosis; 08/23 + yeast & high amylase; s/p additional drains on 08/25 Anemia - S/p PRBCs Cholelithiasis with thickening of the gallbladder wall. Leucocytosis improved JUANA, hyperkalemia, Metabolic acidosis off dialysis Acute hypoxic resp failure ,bilateral pleural effusion and atelectasis hypocalcemia Prediabetes HTN s/p trach Plan Plan of Care Continue cipro 10/05. sputum from 09/30 - growing PSA - may be colonization (I to Meropenem), clinically stable from resp standpoint Continue meropenem, has MDRO PSAE September 24 from abd Continue micafungin September 24 Follow-up cultures fluid for yeast ID Monitor labs/temp General surgery following Monitor drain output Maintain aspiration precaution Supportive care [phone] Critically ill KIMMY JONES MD Oct 10, 2019 11:01
[2019-10-10] MEDS: MICAFUNGIN 100 MG in IV DEXTROSE 5% 100ML 100 ML IV SCH (11:07)
--- NOTE | 2019-10-10 11:15 | PDOC ---
PULMONARY PROGRESS NOTES Subjective on vent, on propofol, off vent during day/ ct drainage 210 cc/24 hrs Patient intubated on 07/10 , s/p trach 07/24, transferred back to ICU 09/22 for syncope with collapse developed anemia, blood drainage from RLQ abdomen drain site, and surrounding firmness / developed septic shock 09/24 from abdomen source, required levo 09/24 s/p 3 new drains 09/24 with brown color drainage/ oozing fluid around drains Vitals Vital Signs Date Time Temp Pulse Resp B/P (MAP) Pulse Ox O2 Delivery O2 Flow Rate FiO2 10/10/19 10:00 121 23 120/87 (98) 98 Tracheal Collar 10/10/19 08:48 8.0 10/10/19 08:00 98.7 98.7 Comments awake,no soa General: Alert, No acute distress HEENT: Other (nc at perrl nose clear neck trach site ok no lab no thyromegaly) Lungs: Other (diminshed in bases, Rhonci in LLL) Cardiovascular: S1, S2 Abdomen: Soft, Non-tender, Other (bleeding from Sx. site RLQ and firmness) Extremities: Other (+1 BLE edema) Skin: Warm, Dry Labs Laboratory Tests Test 10/08/19 13:03 10/08/19 23:59 10/09/19 05:15 10/09/19 11:51 Glucose (Fingerstick) 170 mg/dL (70-99) 132 mg/dL (70-99) 171 mg/dL (70-99) White Blood Count 10.3 x10^3/uL (4.0-11.0) Red Blood Count 3.10 x10^6/uL (3.50-5.40) Hemoglobin 9.0 g/dL (12.0-15.5) Hematocrit 26.3 % (36.0-47.0) Mean Corpuscular Volume 85 fL (79-100) Mean Corpuscular Hemoglobin 29 pg (25-35) Mean Corpuscular Hemoglobin Concent 34 g/dL (31-37) Red Cell Distribution Width 17.4 % (11.5-14.5) Platelet Count 448 x10^3/uL (140-400) Neutrophils (%) (Auto) 74 % (31-73) Lymphocytes (%) (Auto) 17 % (24-48) Monocytes (%) (Auto) 7 % (0-9) Eosinophils (%) (Auto) 1 % (0-3) Basophils (%) (Auto) 0 % (0-3) Neutrophils # (Auto) 7.7 x10^3/uL (1.8-7.7) Lymphocytes # (Auto) 1.8 x10^3/uL (1.0-4.8) Monocytes # (Auto) 0.8 x10^3/uL (0.0-1.1) Eosinophils # (Auto) 0.1 x10^3/uL (0.0-0.7) Basophils # (Auto) 0.0 x10^3/uL (0.0-0.2) Sodium Level 136 mmol/L (136-145) Potassium Level 4.0 mmol/L (3.5-5.1) Chloride Level 102 mmol/L (98-107) Carbon Dioxide Level 29 mmol/L (21-32) Anion Gap 5 (6-14) Blood Urea Nitrogen 15 mg/dL (7-20) Creatinine 0.6 mg/dL (0.6-1.0) Estimated GFR (Cockcroft-Gault) 106.3 BUN/Creatinine Ratio 25 (6-20) Glucose Level 133 mg/dL (70-99) Calcium Level 9.8 mg/dL (8.5-10.1) Total Bilirubin 0.4 mg/dL (0.2-1.0) Aspartate Amino Transf (AST/SGOT) 19 U/L (15-37) Alanine Aminotransferase (ALT/SGPT) 15 U/L (14-59) Alkaline Phosphatase 113 U/L (46-116) Total Protein 4.3 g/dL (6.4-8.2) Albumin 1.0 g/dL (3.4-5.0) Albumin/Globulin Ratio 0.3 (1.0-1.7) Test 10/09/19 18:25 10/10/19 01:12 Glucose (Fingerstick) 140 mg/dL (70-99) 133 mg/dL (70-99) Laboratory Tests Test 10/09/19 11:51 10/09/19 18:25 10/10/19 01:12 Glucose (Fingerstick) 171 mg/dL (70-99) 140 mg/dL (70-99) 133 mg/dL (70-99) Medications Active Scripts Medications Dose Route/Sig Max Daily Dose Days Date Category Bisoprolol Fumarate 5 Mg Tablet 10 Mg PO DAILY 07/04/19 Reported Comments CXR 10/09 poor insp effort/ increase effusion ct abdomen /pelvis 09/23 1. Removal of the percutaneous pigtail drainage catheters since the prior exam. Sequela of pancreatitis with extensive pseudocysts again demonstrated, the right-sided collections are slightly larger since the prior exam, the left-sided collections are stable. See above. 2. Moderate to large left pleural effusion with atelectasis and collapse of most of the left lower lobe, stable. Small right pleural effusion is stable. 3. Gallstone. ct chest 10/02 reviewed Impression . IMPRESSION: 1. Acute hypoxemic respiratory failure secondary to ARDS status post trach, developed anemia 09/24, blood drainage from RLQ abdomen drain site, and surrounding firmness / developed septic shock 09/24 from abdomen source, required levo / s/p 3 new drains 09/24 with brown color drainage, back on vent 09/30, on/off vent 2. Gallstone pancreatitis, now with ongoing bleeding from prior drain. Anemic. s/p Tx multiple units over several days 3. septic shock/sepsis, recurrent 09/24, source abdomen. , off levo now, 4. Acute kidney injury-, Off HD--renal function decling. suspect JUANA on CKD due to hypotension , improved now 5. Acute gallstone pancreatitis. 6. Hypoalbuminemia. 7. Moderate persistent effusions, s/p left thora 08/29, reaccumulation of left effusion. O2 requirement not changed. 8. Fever- ,hypotension. suspect recurrent sepsis/ likely pancreatic source. Per ID, per surgery-- 9. Chronic anemia-- ongoing / s/p PRBC 10. Covid 19 testing negative 11. Moderate to large ascites-S/P paracentisis 12.S/P paracentisis with 4 liters removed on 08/03/19 13. S/P IR drain placement on 08/26/2019, removal, re inserted 09/24 14. Depression/Anxiety 15. Increase effusion, ? loculated/ s/p chest tube.. drainage slowing down. 180 cc /24 hr Plan . 1. TS as tolerated titrate fio2 to keep sat 94%, off vent as much as she can tolerate 2. Follow all cultures/ PSA from pelvic drains. Abx per ID/ thoracentesis result transudate, await c/s, 3. Follow surgery recs-- Acute pancreatitis with persistent necrosis ---- 08/14 status post KAYLIN drain placement + C paropsilosis; 08/23 + yeast & high amylase; s/p additional drains on 08/25, removal of drains and now increase pseudocyst and increase fluid collection. likely infected fluid/ sepsis. on BS abx.follow surgery rec, planning surgical intervention next few weeks 4. Follow ID recs for ABX---- 5. Follow nephrology recs ----- 6. Continue TPN 7. monitor HGB, 4 units since 09/23--monitor HGB transfuse if less than 8.5 8 s/p thoracentesis, 08/29, 3 litres removed, s/p ct on 10/02. ct drainage, 180 cc over the past 24 hrs, suction -40, am cxr, will flush chest tube 9. Pt remains critically ill from severe necrotic pancreatis. Even with surgery prognosis grim. Surgery informed family. 10. lasix/albumin prn DVT/GI PPX: protonix--- holding lovenox 2/2 anemia PT/OT D/W RN, rt VINAYAK LANDRUM MD Oct 10, 2019 11:15
[2019-10-10] MEDS: TPN PER PHARMACY MC PRN (11:59)
--- NOTE | 2019-10-10 12:03 | NUR ---
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, 8 inches Weight: 92.3 kg Current diet: NPO LABS: Sodium: 136 Potassium: 4.0 Chloride: 102 Calcium: 9.8 Corrected Calcium: 12.20 Magnesium: 1.9 CO2: 29 SCr: 0.6 Glucose: 134 Albumin: 1.0 AST: 17 ALT: 18 TPN FORMULA: TPN TYPE: Central Continuous AMINO ACIDS: 80 gm DEXTROSE: 250 gm LIPIDS: 20 gm SODIUM CHLORIDE: 20 mEq SODIUM ACETATE: - mEq SODIUM PHOSPHATE: - mmol POTASSIUM CHLORIDE: - mEq POTASSIUM ACETATE: 60 mEq POTASSIUM PHOSPHATE: - mmol MAGNESIUM: 14 mEq CALCIUM: - mEq INSULIN: 15 units MULTIPLE VITAMIN: 10 ml TRACE ELEMENTS: 1 ml(s) TPN PLAN: NA TRENDING DOWN. ADD NACL 20 MEQ TO TPN. R: Continue TPN at 80 ml/hr Will monitor electrolytes, glucose, and tolerance to TPN. KRISTIAN APODACA [facility], 10/10/19 0701
--- NOTE | 2019-10-10 12:17 | NUR ---
SS following for discharge planning. SS reviewed pt chart and discussed with pt RN. Pt currently on trach collar. Pt on TPN and IV Meropenem, Micafungin, and Ciprofloxacin. Pt has drains x3 and chest tube. Pt max assist with PT/OT and staff. Awaiting surgery to decide on surgical intervention. Pt remains Full Code. Pt has 50/50 guardianship with her daughters, Norma and Marce. Norma okay with DNR but Marce wanting to continue Full Code. Due to 50/50 guardianship both daughters must be in agreement. SS will continue to follow for discharge planning.
[2019-10-10] MEDS: ONDANSETRON PF 4 MG/2 ML VIAL. IV PRN (12:23)
--- NOTE | 2019-10-10 12:32 | PDOC ---
PADMINI RAMOS STRANNER 10/10/19 1231: CARDIO Progress Notes Date and Time Date of Service 10/10/19 Time of Evaluation 1210 Subjective Subjective: Other (sleeping ) Vitals Vitals Vital Signs Date Time Temp Pulse Resp B/P (MAP) Pulse Ox O2 Delivery O2 Flow Rate FiO2 10/10/19 12:00 Trach Collar 10/10/19 11:00 115 33 137/87 (104) 98 10/10/19 08:48 8.0 10/10/19 08:00 98.7 98.7 Weight Weight [ ] Input and Output Intake and Output Intake and Output 10/10/19 07:00 Intake Total 2583 ml Output Total 3086 ml Balance -503 ml Intake Oral 0 ml IV Total 2583 ml Output Urine Total 2255 ml Gastric Drainage Total 300 ml Chest Tube Drainage Total 335 ml Drainage Total 176 ml Other 20 ml Laboratory Labs Laboratory Tests Test 10/09/19 18:25 10/10/19 01:12 10/10/19 11:17 Glucose (Fingerstick) 140 mg/dL (70-99) 133 mg/dL (70-99) 183 mg/dL (70-99) Microbiology Micro Microbiology 10/06/19 Blood Culture - Preliminary, Resulted NO GROWTH AFTER 3 DAYS 10/03/19 Gram Stain - Final, Complete 10/03/19 Aerobic and Anaerobic Culture - Final, Complete 10/01/19 Gram Stain Evaluation - Final, Complete 10/01/19 Respiratory Culture - Final, Complete 10/01/19 Antimicrobic Susceptibility - Final, Complete 09/25/19 Urine Culture - Final, Complete 09/17/19 Gram Stain - Final, Complete 09/17/19 Aerobic Culture - Final, Complete Review of Systems Constitutional: yes: other (DIFFICULT FOR HER TO TALK) Physical Exam HEENT: Neck Supple W Full Motion Chest: Symmetric LUNGS: Clear to Auscultation Heart: S1S2, RRR (ST rate 115) Extremities: Other (1-2+ bilateral LE edema, anasarca) Neurology: other (sleeping ) Assessment Assessment 1. Severe acute gallstone pancreatitis with necrosis 2. Acute respiratory failure: presently has trach and chest tube. 3. Anasarca with severe protein malnutrition 4. Sepsis with MDRO: off pressors. 5. Acute diastolic CHF: multifactorial, better compensated. 6. Normocytic anemia: s/p transfusions 7. Sinus tachycardia: Most probably physiologic. Rate controlled overall. 8. Severe JUANA requiring HD: last dialysis about a month ago Recommendations Lasix PRN Metoprolol IV PRN for sustained tachycardia Echo pending Supportive care. Justicifation of Admission Dx: Justifications for Admission: Justification of Admission Dx: Yes DEREJE PRESLEY MD 10/11/19 1257: CARDIO Progress Notes Plan Plan Late entry for 10/10/2019 Patient seen and examined. Agree with above nurse practitioner note. PADMINI RAMOS APRN Oct 10, 2019 12:31 DEREJE PRESLEY MD Oct 11, 2019 12:57
--- NOTE | 2019-10-10 12:43 | NUR ---
Flushed left lateral chest tube with 50 cc sterile saline per Dr. Hamilton, pulled out an extremely long thin clot from tubing. Patient tolerated well without complications.
--- NOTE | 2019-10-10 12:55 | PDOC ---
Objective: Objective: D/w nurse - noted some odd looking material from chest tube earlier, just got back in bed and got some Fentanyl so is resting. Vital Signs: Vital Signs Date Time Temp Pulse Resp B/P (MAP) Pulse Ox O2 Delivery O2 Flow Rate FiO2 10/10/19 12:00 Trach Collar 10/10/19 12:00 98.6 111 25 113/74 (87) 93 98.6 10/10/19 08:48 8.0 Labs: Laboratory Tests Test 10/09/19 18:25 10/10/19 01:12 10/10/19 11:17 Glucose (Fingerstick) 140 mg/dL (70-99) 133 mg/dL (70-99) 183 mg/dL (70-99) Imaging: CXR 10/09 Impression: 1. Chest tube is seen in the left pleural base with no significant left-sided effusion. There does appear to be an increasing right-sided effusion with compressive atelectasis. PE: GEN: NAD/chronically ill LUNGS: trach collar HEART: mildly tachycardic on monitor NEURO/PSYCH: sleeping, not awakened A/P: Complicated pancreatitis -- Continue support. Justicifation of Admission Dx: Justifications for Admission: Justification of Admission Dx: Yes CYNDEE FALCON Oct 10, 2019 12:55
--- NOTE | 2019-10-10 13:10 | CARD ---
MR#: [id number] Date of Study: 10/10/2019 Ordering Physician: CARIN FERNANDEZ, Referring Physician: CARIN FERNANDEZ, Tech: Marbella Carreno RDCS APPROVED REPORT EXAM: Two-dimensional and M-mode echocardiogram with Doppler and color Doppler. Other Information Quality : Good Technically limited study due to breast implants INDICATION Congestive Heart Failure 2D DIMENSIONS RVDd3.7 (2.9-3.5cm)Left Atrium(2D)2.8 (1.6-4.0cm) IVSd0.9 (0.7-1.1cm)Aortic Root(2D)2.9 (2.0-3.7cm) LVDd3.8 (3.9-5.9cm)LVOT Diameter2.0 (1.8-2.4cm) PWd1.0 (0.7-1.1cm)LVDs2.7 (2.5-4.0cm) FS (%) 29.1 %SV34.9 ml LVEF(%)56.6 (>50%) Aortic Valve AoV Peak Ayush.170.4cm/sAoV VTI21.3cm AO Peak GR.11.6mmHgLVOT VTI 20.47cm AO Mean GR.6mmHgAVA (VTI)3.00cm2 Mitral Valve MV E Grshhrrt79.0cm/sMV DECEL IHIP524tc MV A Mddxlbxd65.1cm/sE/A Ratio0.8 TDI Lateral E' P. V9.59cm/sMedial E' P. V8.56cm/s E/Lateral E'7.8E/Medial E'8.8 Pulmonary Vein S1 Olsqfskr15.0cm/sS2 Lvhnovec75.87cm/s D2 Nuqjjzcl49.9cm/s LEFT VENTRICLE The left ventricle is normal size. There is normal left ventricular wall thickness. The left ventricu lar systolic function is normal. The Ejection Fraction is 60-65%. There is normal LV segmental wall m otion. Transmitral Doppler flow pattern is Grade I-abnormal relaxation pattern. RIGHT VENTRICLE The right ventricle is normal size. The right ventricular systolic function is normal. ATRIA The left atrium size is normal. The right atrium size is normal. The interatrial septum is intact wit h no evidence for an atrial septal defect or patent foramen ovale as noted on 2-D or Doppler imaging. AORTIC VALVE The aortic valve is not well visualized but appears to be functioning normally by Doppler interrogati on. Doppler and Color Flow revealed no significant aortic regurgitation. There is no significant aort ic valvular stenosis. MITRAL VALVE The mitral valve is normal in structure and function. There is no evidence of mitral valve prolapse. There is no mitral valve stenosis. Doppler and Color Flow revealed trace mitral valve regurgitation. TRICUSPID VALVE The tricuspid valve is normal in structure and function. Doppler and Color Flow revealed trace tricus pid valve regurgitation. There is no tricuspid valve stenosis. PULMONIC VALVE The pulmonic valve is not well visualized. Doppler and Color Flow revealed no pulmonic valvular regur gitation. There is no pulmonic valvular stenosis. GREAT VESSELS The aortic root is normal in size. The ascending aorta is normal in size. The IVC is normal in size a nd collapses >50% with inspiration. PERICARDIAL EFFUSION There is no evidence of significant pericardial effusion. Critical Notification Critical Value: No <Conclusion> The left ventricular systolic function is normal. The Ejection Fraction is 60-65%. Transmitral Doppler flow pattern is Grade I-abnormal relaxation pattern. There is no evidence of significant pericardial effusion. Trace mitral valve regurgitation. Trace tricuspid valve regurgitation. There is no evidence of significant pericardial effusion. Signed by : Nacho Sutherland, Electronically Approved : 10/10/2019 13:10:18
[2019-10-10 15:12] LABS: IMMUNOGLOBULIN A 162 mg/dL (87-352); IMMUNOGLOBULIN G 743 mg/dL (586-1602); IMMUNOGLOBULIN M 108 mg/dL (26-217)
[2019-10-10] MEDS ORDERED: [UNRECOGNIZED DRUG - OTHER] IV SCH ×9 (22:00)
[2019-10-10] MEDS ORDERED: TOTAL PARENTERAL NUTRITION IV SCH ×9 (22:00)
[2019-10-10] MEDS ORDERED: DEXTROSE 70% IV SCH ×9 (22:00)
[2019-10-10] MEDS ORDERED: AMINO ACID IV SCH ×9 (22:00)
[2019-10-11] VITALS (23 sets, daily range): BP systolic 94–140; BP diastolic 56–93
[2019-10-11] MEDS: IPRATRPIUM/ALBUTEROL 0.5/2.5MG 3 ML NEBU. NEB SCH ×6 (03:25→23:30)
[2019-10-11] MEDS: INSULIN LISPRO 300 UNITS/3 ML VIAL. SQ SCH ×4 (06:00→17:01)
[2019-10-11 07:36] LABS: CALCIUM 10.1 mg/dL (8.5-10.1); CREATININE 0.7 mg/dL (0.6-1.0); GFR 88.9; POTASSIUM 4.3 mmol/L (3.5-5.1)
--- NOTE | 2019-10-11 07:45 | PDOC ---
Infectious Disease Note Subjective Subjective Patient is awake says she is feeling better ROS ROS No nausea vomiting diarrhea chest pain Vital Sign Vital Signs Vital Signs Date Time Temp Pulse Resp B/P (MAP) Pulse Ox O2 Delivery O2 Flow Rate FiO2 10/11/19 07:29 100 Tracheal Collar 8.0 10/11/19 07:00 116 22 119/81 (94) 10/11/19 04:07 98.2 98.2 Physical Exam PHYSICAL EXAM GENERAL: Propped up in bed, resting quietly HEENT: NGT in place. NECK: Tracheostomy LUNGS: Diminished aeration bases, no accessory muscle use - CT on left with clear fluid HEART: S1, S2,regular ABDOMEN: Mild distention, bowel sounds present, soft, grimaces to palpation, drains x 3 : Lind ( 09/24) EXTREMITIES: + edema BLE SKIN: no signs of gen rash LUE-PICC (09/15) without signs of complications Labs Lab Laboratory Tests Test 10/10/19 11:17 10/10/19 17:15 10/11/19 06:28 Glucose (Fingerstick) 183 mg/dL (70-99) 149 mg/dL (70-99) 101 mg/dL (70-99) Sodium Level 136 mmol/L (136-145) Potassium Level 4.3 mmol/L (3.5-5.1) Chloride Level 99 mmol/L (98-107) Carbon Dioxide Level 33 mmol/L (21-32) Anion Gap 4 (6-14) Blood Urea Nitrogen 15 mg/dL (7-20) Creatinine 0.7 mg/dL (0.6-1.0) Estimated GFR (Cockcroft-Gault) 88.9 Glucose Level 109 mg/dL (70-99) Calcium Level 10.1 mg/dL (8.5-10.1) Triglycerides Level 174 mg/dL (0-150) Micro Objective Assessment Fever intermittent could be from underlying pancreatitis vs aspiration ? Ileus with vomiting Abd distention - U/S and CT reviewed s/p 0.4 L of opaque, debris-containing ascites was removed 08/23 Acute pancreatitis with persistent necrosis - 08/14 status post KAYLIN drain placement + C paropsilosis; 08/23 + yeast & high amylase; s/p additional drains on 08/25 Anemia - S/p PRBCs Cholelithiasis with thickening of the gallbladder wall. Leucocytosis improved JUANA, hyperkalemia, Metabolic acidosis off dialysis Acute hypoxic resp failure ,bilateral pleural effusion and atelectasis hypocalcemia Prediabetes HTN s/p trach Plan Plan of Care Continue cipro 10/05. sputum from 09/30 - growing PSA - may be colonization (I to Meropenem), clinically stable from resp standpoint Continue meropenem, has MDRO PSAE September 24 from abd Continue micafungin September 24 Follow-up cultures fluid for yeast ID Monitor labs/temp General surgery following Monitor drain output Maintain aspiration precaution Supportive care Contact islation for CRE/MDRO [facility] micro [phone] Critically ill KIMMY JONES MD Oct 11, 2019 07:45
[2019-10-11] MEDS: MEROPENEM 1 GM in IV NORMAL SALINE 100ML 100 ML IV SCH ×2 (08:58→21:18)
[2019-10-11] MEDS: CIPROFLOXACIN 400MG PREMIX 200 ML IV SCH ×2 (08:58→21:18)
[2019-10-11] MEDS: PANTOPRAZOLE IV PUSH 40 MG VIAL. IVP SCH (08:58)
--- NOTE | 2019-10-11 09:09 | PDOC ---
PULMONARY PROGRESS NOTES Subjective off vent ,ct drainage <200 cc/24 hrs Patient intubated on 07/10 , s/p trach 07/24, transferred back to ICU 09/22 for syncope with collapse developed anemia, blood drainage from RLQ abdomen drain site, and surrounding firmness / developed septic shock 09/24 from abdomen source, required levo 09/24 s/p 3 new drains 09/24 with brown color drainage/ oozing fluid around drains s/p left chest tube Vitals Vital Signs Date Time Temp Pulse Resp B/P (MAP) Pulse Ox O2 Delivery O2 Flow Rate FiO2 10/11/19 07:29 100 Tracheal Collar 8.0 10/11/19 07:00 116 22 119/81 (94) 10/11/19 04:07 98.2 98.2 Comments awake,no soa General: Alert, No acute distress HEENT: Other (nc at perrl nose clear neck trach site ok no lab no thyromegaly) Lungs: Other (diminshed in bases, Rhonci in LLL) Cardiovascular: S1, S2 Abdomen: Soft, Non-tender, Other (bleeding from Sx. site RLQ and firmness) Extremities: Other (+1 BLE edema) Skin: Warm, Dry Labs Laboratory Tests Test 10/09/19 11:51 10/09/19 18:25 10/10/19 01:12 10/10/19 11:17 Glucose (Fingerstick) 171 mg/dL (70-99) 140 mg/dL (70-99) 133 mg/dL (70-99) 183 mg/dL (70-99) Test 10/10/19 17:15 10/11/19 06:28 Glucose (Fingerstick) 149 mg/dL (70-99) 101 mg/dL (70-99) Sodium Level 136 mmol/L (136-145) Potassium Level 4.3 mmol/L (3.5-5.1) Chloride Level 99 mmol/L (98-107) Carbon Dioxide Level 33 mmol/L (21-32) Anion Gap 4 (6-14) Blood Urea Nitrogen 15 mg/dL (7-20) Creatinine 0.7 mg/dL (0.6-1.0) Estimated GFR (Cockcroft-Gault) 88.9 Glucose Level 109 mg/dL (70-99) Calcium Level 10.1 mg/dL (8.5-10.1) Triglycerides Level 174 mg/dL (0-150) Laboratory Tests Test 10/10/19 11:17 10/10/19 17:15 10/11/19 06:28 Glucose (Fingerstick) 183 mg/dL (70-99) 149 mg/dL (70-99) 101 mg/dL (70-99) Sodium Level 136 mmol/L (136-145) Potassium Level 4.3 mmol/L (3.5-5.1) Chloride Level 99 mmol/L (98-107) Carbon Dioxide Level 33 mmol/L (21-32) Anion Gap 4 (6-14) Blood Urea Nitrogen 15 mg/dL (7-20) Creatinine 0.7 mg/dL (0.6-1.0) Estimated GFR (Cockcroft-Gault) 88.9 Glucose Level 109 mg/dL (70-99) Calcium Level 10.1 mg/dL (8.5-10.1) Triglycerides Level 174 mg/dL (0-150) Medications Active Scripts Medications Dose Route/Sig Max Daily Dose Days Date Category Bisoprolol Fumarate 5 Mg Tablet 10 Mg PO DAILY 07/04/19 Reported Comments CXR 10/09 poor insp effort/ increase effusion ct abdomen /pelvis 09/23 1. Removal of the percutaneous pigtail drainage catheters since the prior exam. Sequela of pancreatitis with extensive pseudocysts again demonstrated, the right-sided collections are slightly larger since the prior exam, the left-sided collections are stable. See above. 2. Moderate to large left pleural effusion with atelectasis and collapse of most of the left lower lobe, stable. Small right pleural effusion is stable. 3. Gallstone. ct chest 10/02 reviewed GRAM NEG COCCOBACILLI:MANY SQUAMOUS EPI CELL:RARE PMN (WBCs):FEW Unless otherwise specified, Testing Performed by: [facility] [address] [place] [address] For Inquires, the Physician may contact the Microbiology department at [phone] RESPIRATORY CULTURE Final Final MANY GRAM NEGATIVE RODS on 10/03/19 at 1102 FINAL ID= [[email or web address]] MICRO CHARGES PSEUDOMONAS AERUGINOSA ANTIMICROBIAL SUSCEPTIBILITY Final Comment NEG ALEXANDRA 56 PSEUDOMONAS AERUGINOSA ANTIBIOTIC RESULT INTERPRETATION AMIKACIN <=16 S AZTREONAM <=4 S CEFTAZIDIME <=1 S CIPROFLOXACIN <=0.25 S CEFEPIME <=2 S CEFTAZIDIME/AVIBACTAM <=4 S GENTAMICIN <=2 S LEVOFLOXACIN <=0.5 S Impression . IMPRESSION: 1. Acute hypoxemic respiratory failure secondary to ARDS status post trach, developed anemia 09/24, blood drainage from RLQ abdomen drain site, and surrounding firmness / developed septic shock 09/24 from abdomen source, required levo /7 s/p 3 new drains 09/24 with brown color drainage, on/off vent , on TS now 2. Gallstone pancreatitis, now with ongoing bleeding from prior drain. Anemic. s/p Tx multiple units over several days 3. septic shock/sepsis, recurrent 09/24, source abdomen. , off levo now, 4. Acute kidney injury-, Off HD--renal function decling. suspect JUANA on CKD due to hypotension , improved now 5. Acute gallstone pancreatitis. 6. Hypoalbuminemia. 7. Moderate persistent effusions, s/p left thora 08/29, reaccumulation of left effusion. O2 requirement not changed. 8. Fever- ,hypotension. suspect recurrent sepsis/ likely pancreatic source. Per ID, per surgery-- 9. Chronic anemia-- ongoing / s/p PRBC 10. Covid 19 testing negative 11. Moderate to large ascites-S/P paracentisis 12.S/P paracentisis with 4 liters removed on 08/03/19 13. S/P IR drain placement on 08/26/2019, removal, re inserted 09/24 14. Depression/Anxiety 15. Increase effusion, ? loculated/ s/p chest tube.. drainage slowing down. <200 cc /24 hr Plan . 1. TS as tolerated titrate fio2 to keep sat 94%, off vent as much as she can tolerate 2. Follow all cultures/ PSA from pelvic drains. Abx per ID/ thoracentesis result transudate, await c/s, 3. Follow surgery recs-- Acute pancreatitis with persistent necrosis ---- 08/14 status post KAYLIN drain placement + C paropsilosis; 08/23 + yeast & high amylase; s/p additional drains on 08/25, removal of drains and now increase pseudocyst and increase fluid collection. likely infected fluid/ sepsis. on BS abx.follow surgery rec, planning surgical intervention next few weeks 4. Follow ID recs for ABX---- 5. Follow nephrology recs ----- 6. Continue TPN 7. monitor HGB, 4 units since 09/23--monitor HGB transfuse if less than 8.5 8 s/p thoracentesis, 08/29, 3 litres removed, s/p ct on 10/02. ct drainage, 180 cc over the past 24 hrs, suction -40, am cxr, flushed chest tube 10/09 9. Pt remains critically ill from severe necrotic pancreatis. Even with surgery prognosis grim. Surgery informed family. 10. lasix/albumin prn 11. sputum gram neg cocobacilli. anna sensitive DVT/GI PPX: protonix--- holding lovenox 2/2 anemia PT/OT D/W RN, rt VINAYAK LANDRUM MD Oct 11, 2019 09:09
--- NOTE | 2019-10-11 10:06 | PDOC ---
LISANDRO PARKER FOUNDRY OPERATOR 10/11/19 1006: SURGICAL PROGRESS NOTE Subjective family present in bed Vital Signs Vital Signs Date Time Temp Pulse Resp B/P (MAP) Pulse Ox O2 Delivery O2 Flow Rate FiO2 10/11/19 10:02 110 22 95/71 (79) 98 Tracheal Collar 10/11/19 08:00 99.2 99.2 10/11/19 07:29 8.0 I&O Intake and Output 10/11/19 07:00 Intake Total 4785 ml Output Total 2675 ml Balance 2110 ml Intake Oral 0 ml IV Total 4785 ml Output Urine Total 2460 ml Chest Tube Drainage Total 145 ml Drainage Total 70 ml PATIENT HAS A ROSARIO: Yes General: Alert HEENT: Other (NG present) Lungs: Other (trach) Abdomen: Soft Labs Laboratory Tests Test 10/09/19 11:51 10/09/19 18:25 10/10/19 01:12 10/10/19 11:17 Glucose (Fingerstick) 171 mg/dL (70-99) 140 mg/dL (70-99) 133 mg/dL (70-99) 183 mg/dL (70-99) Test 10/10/19 17:15 10/11/19 06:28 Glucose (Fingerstick) 149 mg/dL (70-99) 101 mg/dL (70-99) Sodium Level 136 mmol/L (136-145) Potassium Level 4.3 mmol/L (3.5-5.1) Chloride Level 99 mmol/L (98-107) Carbon Dioxide Level 33 mmol/L (21-32) Anion Gap 4 (6-14) Blood Urea Nitrogen 15 mg/dL (7-20) Creatinine 0.7 mg/dL (0.6-1.0) Estimated GFR (Cockcroft-Gault) 88.9 Glucose Level 109 mg/dL (70-99) Calcium Level 10.1 mg/dL (8.5-10.1) Triglycerides Level 174 mg/dL (0-150) Laboratory Tests Test 10/10/19 11:17 10/10/19 17:15 10/11/19 06:28 Glucose (Fingerstick) 183 mg/dL (70-99) 149 mg/dL (70-99) 101 mg/dL (70-99) Sodium Level 136 mmol/L (136-145) Potassium Level 4.3 mmol/L (3.5-5.1) Chloride Level 99 mmol/L (98-107) Carbon Dioxide Level 33 mmol/L (21-32) Anion Gap 4 (6-14) Blood Urea Nitrogen 15 mg/dL (7-20) Creatinine 0.7 mg/dL (0.6-1.0) Estimated GFR (Cockcroft-Gault) 88.9 Glucose Level 109 mg/dL (70-99) Calcium Level 10.1 mg/dL (8.5-10.1) Triglycerides Level 174 mg/dL (0-150) Problem List Problems Medical Problems: (1) Acute pancreatitis Status: Acute (2) Cholelithiasis Status: Acute Assessment/Plan stable supportive care surgery plans with Dr Servin--tentatively next week Justicifation of Admission Dx: Justifications for Admission: Justification of Admission Dx: Yes DAVON SERVIN MD 10/11/19 1351: SURGICAL PROGRESS NOTE Assessment/Plan Pt seen and examined. Agree with Ms. Parker's note Pt relatively comfortable abd soft, drains with pancreatic necrosis plan OR 10/17. D/w pt and pt's mother extensively. R/R/B/A d/w them. LISANDRO PARKER APRN Oct 11, 2019 10:06 DAVON SERVIN MD Oct 11, 2019 13:51
--- NOTE | 2019-10-11 10:22 | PDOC ---
PROGRESS NOTES Chief Complaint Chief Complaint impression History of Present Illness 48yo F w/ PMHx HTN, prediabetes who presented the emergency room complaints of abdominal pain. Patient described off and on 3 days. She states is constant, described as a squeezing sensation in a band-like distribution. + nausea, vomiting. She denies any fever or diarrhea. Patient denies any abdominal surgical procedures. She stateed is worse with movements, car ride. Pain initially was upper abdomen however now pretty much generalized. Last bowel movement was 07/03/2019. Nothing makes her pain better. Patient denies any shortness of breath. She does state the pain moves into her chest. Denies any headache or visual changes. Lipase 44829, AST 401, ALT 249, Bilirubin 1.4. CT abdomen confirms pancreatic inflammation, peripancreatic fluid and inflammatory changes around the pancreas consistent with pancreatitis. Cholelithiasis and 1.4cm uterine fibroid as well as possible left salpingitis. Admitted for further care Gallstone pancreatitis with necrosis. -CT A/P 09/23 showed multiple pseudocysts, slight larger on the right. s/p drains x , 09/24. + PSAE (MDRO-R Cefepime, Zosyn ALEXANDRA < 64) and yeast, -s/p drain 08/14. C. parapsilosis. s/p drain 08/23 + yeast & high amylase; s/p additional drain on 08/25. Drains removed. Ascites s/p paracentesis 08/02 & 08/23. C. parapsilosis JUANA. off HD. impression Acute hypoxic Respiratory failure required mechanical ventilation Tracheostomy bilateral pleural effusions/pulm edema s/p Throacentesis on 10/03/2019 Severe Acute gallstone pancreatitis (not a surgical candidate at this time) with necrosis Acute kidney failure now requiring dialysis Gallstones (Calculus of gallbladder with acute cholecystitis without obstruction) HTN Intractable pain Intractable nausea Covid 19 negative. Acute on chronic anemia EEG: No seizure activityFever - better currently - intermittent could be from underlying pancreatitis blood cults 08/21 - neg so far ? Ileus with vomiting Abd distention - U/S and CT reviewed s/p 0.4 L of opaque, debris-containing ascites was removed 08/23 Acute pancreatitis with persistent necrosis Gallstone pancreatitis with necrosis. -CT A/P 09/23 showed multiple pseudocysts, slight larger on the right. s/p drains x 3, 09/24. + PSAE (MDRO-R Cefepime, Zosyn ALEXANDRA < 64) and yeast, -s/p drain 08/14. C. parapsilosis. s/p drain 08/23 + yeast & high amylase; s/p additional drain on 08/25. Drains removed. Ascites s/p paracentesis 08/02 & 08/23. C. parapsilosis JUANA. off HD. A large fluid collection in the pancreatic bed has slightly decreased in size, described below, the pancreas itself is difficult to visualize, which could be due to necrosis or obscuration of pancreatic parenchyma from the surrounding fluid collection.10/02 - 08/14 status post KAYLIN drain placement + C paropsilosis. s/p additional drains 08/25 Anemia - S/p PRBCs Cholelithiasis with thickening of the gallbladder wall. Leucocytosis improving JUANA, hyperkalemia, Metabolic acidosis off dialysis hypocalcemia Prediabetes HTN s/p trach ESRD on HD Hyperglycemia severe protein-caloric malnutrition Moderate to large left pleural effusion with atelectasis and collapse of most of the left lower lobe, stable 10/05 FEVER 101, BLOOD CULTURE X 2 10/06 iv cipro added 10/07 vent fio2 35% 10/10 tentative surgery next week FEN - PPX - SCDs, off lovenox currently, high risk for thrombosis but in light of her recent anemia and need for transfusion the risks do not outweigh benefits at this time. will continue to evaluate on a daily basis FULL CODE Dispo - ICU, critically ill BACK ON VENT 10/04 vent // no distress iv albumin 10/06 Continue meropenem, has MDRO PSAE September 24 Continue micafungin September 2410/[address] Servin--tentatively next week 36 MIN CC TIME History of Present Illness History of Present Illness 09/25: IR placed drain on 09/24. 4u PRBC after Hb drop. Hb 8.8 today. Off Levophed this morning. T-max 100.3. Much more lethargic today. CXR with left sided diffuse infiltrates. 09/26: Tachycardic overnight into the 140s. NGT clamped. On BIPAP currently. Drains with serosanguinous discharge. WBC 8, Tmax 99.6F. 09/27: Seen on trach shield in ICU. Hypertensive and tachycardic. Labs stable. blood stained drainage from drains. Afebrile. 09/28: Seen on trach shield in ICU. She is a bit confused, drowsy, but when sitting up is conversational and confusion somewhat clears. She is asking for more pain medication. Stable drains, still very tachy.Na 147 09/29: Patient vomited overnight. Aspirated. Tried to pull her trach out, she was told she would without her trach, she said "I know, I just want to go home". Hb 7.6. Afebrile, still very tachycardic. 1055ml out of right sided KAYLIN drain 09/30: Overnight hypoxic, on BIPAP. CXR with left sided white out lung. Signif icant mucous plug suctioned by RT with improvement in her ABG after 2 hours this morning. Not really active, tired, lethargic. 890ml out of drains past 24 hours. On vent. D/w daughter bedside. 10/01: Still on vent overnight with copious pulmonary drainage on suctioning. Labs stable, UOP stable 1L. Drain output still significant with 1505mL. She has shown her phone password [id number] and made it clear she does not want her daughters to access her phone at this time. 6:15: Patient quite frail, she has had such a lengthy hospital stay that she is certainly depressed and as documented 3 days ago is wanting to go home. Most likely patient is also tired of being hospitalized with an end point no where in sight. Reassurance and encouragement provided during my visit. Plans for thoracentesis later in the day 10/03: No acute events reported overnight, case discussed with nursing staff patient in no acute distress, complaints of the abdomimal pain during my visit, patient is quite depressed, reassurance has been provided, discussed with nursing staff at bedside, replace electrolytes 10/04 off vent / on TS , no distress 10/10 Patient seen and examined ICU BED critically ill guardedlong-term prognosis Sputum from 09/30 - growing PSA - may be colonization I to Meropenem add Cipro Continue meropenem, has MDRP PSAE September 24 from abd cont micafungin September 24 bleeding from Sx. site RLQ and firmness) max 1003 oncology consulted COMMENTS: Has specimen been collected/obtained? Y 36 MIN CC TIME Date: Aug 15, 2019 Pre-Op Diagnosis: Necrotizing pancreatitis Post-Op Diagnosis: same Procedure Performed: laparoscopic exploration Surgeon: Renzo Servin Asst: Dr. Arturo Harris Anesthesia Type: GETA plus local Blood Loss: 50 Specimans Obtained: cultures, debris Findings: 1000 cc ascites suctioned off, cultures sent, diffuse debris, obliteration of surgical planes preventing any meaningful exploration 09/20/2019 Patient seen and examined in the ICU She is a little more alert today but still quite ill Appears clammy and pale and depressed/anxious Discussed with RN Chart reviewed 09/19/2019 Patient seen and examined in the ICU She appears extremely ill She is tachypneic at 35 respirations per minute and tachycardic at 132 bpm She is extremely encephalopathic and shaky She appears clammy Chart reviewed Discussed with RN Prognosis extremely guarded at best 09/18/2019 Patient still in ICU Resting with no apparent distress Chart reviewed 09/17/2019 Patient seen and examined in the ICU She is wiping her face with a cough Discussed with RN Chart reviewed We hope to get her out of the ICU later today if possible 09/16/2019 Patient seen and examined in the ICU once again She is back on NG suction On IV Zosyn Has IV TPN Sedated with Precedex but anxious still Appears somewhat clammy and pale Chart reviewed Discussed with RN She remains critically ill BRIEF OPERATIVE NOTE Pre-Op Diagnosis Pancreatitis with pseudocysts, suspected infection Post-Op Diagnosis same Procedure Performed CT abdominal Drains x 3 Surgeon Tesfaye Anesthesia Type: Conscious Sedation Findings 3 abdominal drains, 14F, with turbid pancreatic fluid and necrotic debris in each. Complications No immediate 08/26: Patient today somewhat restless and having bilious secretions from ET tube, imaging studies ordered, discussed with information consultant. Pretty poor prognosis, hopefully is not a fistula, poor surgical candidate. 08/27: Imaging with no acute events, she seems more stable today compared to yesterday. Encouraged as much activity as possible patient at high risk for severe depression. Vitals Vitals Vital Signs Date Time Temp Pulse Resp B/P (MAP) Pulse Ox O2 Delivery O2 Flow Rate FiO2 10/11/19 10:02 110 22 95/71 (79) 98 Tracheal Collar 10/11/19 08:00 99.2 99.2 10/11/19 07:29 8.0 Physical Exam Physical Exam GENERAL: Propped up in bed, resting quietly HEENT: NGT in place. NECK: Tracheostomy LUNGS: Diminished aeration bases, no accessory muscle use - CT on left with clear fluid HEART: S1, S2,regular ABDOMEN: Mild distention, bowel sounds present, soft, grimaces to palpation, drains x 3 : Lind ( 09/24) EXTREMITIES: + edema BLE SKIN: no signs of gen rash LUE-PICC (09/15) without signs of complications General: Alert, Oriented X3, Cooperative, No acute distress Heart: Regular rate (SR/ST), Other (distant heart sounds) Lungs: Other (diminshed in bases, Rhonci in LLL) Abdomen: Soft Extremities: No cyanosis, Other (3+ bilateral LE pitting edema) Skin: No rashes, No significant lesion Labs LABS COMMENTS: Has specimen been collected/obtained? Y Procedure Result GRAM STAIN EVALUATION Final Final GRAM NEG COCCOBACILLI:MANY SQUAMOUS EPI CELL:RARE PMN (WBCs):FEW Unless otherwise specified, Testing Performed by: [address] [address] For Inquires, the Physician may contact the Microbiology department at [phone] RESPIRATORY CULTURE Final Final MANY GRAM NEGATIVE RODS on 10/03/19 at 1107 FINAL ID= [[email or web address]] MICRO CHARGES PSEUDOMONAS AERUGINOSA ANTIMICROBIAL SUSCEPTIBILITY Final Comment NEG ALEXANDRA 56 PSEUDOMONAS AERUGINOSA ANTIBIOTIC RESULT INTERPRETATION AMIKACIN <=16 S AZTREONAM <=4 S CEFTAZIDIME <=1 S CIPROFLOXACIN <=0.25 S CEFEPIME <=2 S CEFTAZIDIME/AVIBACTAM <=4 S GENTAMICIN <=2 S LEVOFLOXACIN <=0.5 S Indication: Follow-up effusions Findings: Tracheostomy tube nasogastric tube and left-sided PICC line are identified. The heart is enlarged but stable.. No pneumothorax. Left basilar chest tube is reidentified. No significant effusion is seen on the left side. There does appear to be increasing effusion on the right side with new atelectasis and effusion identified. Breast Impression: 1. Chest tube is seen in the left pleural base with no significant left-sided effusion. There does appear to be an increasing right-sided effusion with compressive atelectasis. Electronically signed by: Julio Farfan MD (10/10/2019 9:20 AM) [id number] Laboratory Tests Test 10/10/19 11:17 10/10/19 17:15 10/11/19 06:28 Glucose (Fingerstick) 183 mg/dL (70-99) 149 mg/dL (70-99) 101 mg/dL (70-99) Sodium Level 136 mmol/L (136-145) Potassium Level 4.3 mmol/L (3.5-5.1) Chloride Level 99 mmol/L (98-107) Carbon Dioxide Level 33 mmol/L (21-32) Anion Gap 4 (6-14) Blood Urea Nitrogen 15 mg/dL (7-20) Creatinine 0.7 mg/dL (0.6-1.0) Estimated GFR (Cockcroft-Gault) 88.9 Glucose Level 109 mg/dL (70-99) Calcium Level 10.1 mg/dL (8.5-10.1) Triglycerides Level 174 mg/dL (0-150) Assessment and Plan Assessmemt and Plan Problems Medical Problems: (1) Acute pancreatitis Status: Acute (2) Cholelithiasis Status: Acute Comment Review of Relevant I have reviewed the following items kolby (where applicable) has been applied. Labs Laboratory Tests Test 10/09/19 11:51 10/09/19 18:25 10/10/19 01:12 10/10/19 11:17 Glucose (Fingerstick) 171 mg/dL (70-99) 140 mg/dL (70-99) 133 mg/dL (70-99) 183 mg/dL (70-99) Test 10/10/19 17:15 10/11/19 06:28 Glucose (Fingerstick) 149 mg/dL (70-99) 101 mg/dL (70-99) Sodium Level 136 mmol/L (136-145) Potassium Level 4.3 mmol/L (3.5-5.1) Chloride Level 99 mmol/L (98-107) Carbon Dioxide Level 33 mmol/L (21-32) Anion Gap 4 (6-14) Blood Urea Nitrogen 15 mg/dL (7-20) Creatinine 0.7 mg/dL (0.6-1.0) Estimated GFR (Cockcroft-Gault) 88.9 Glucose Level 109 mg/dL (70-99) Calcium Level 10.1 mg/dL (8.5-10.1) Triglycerides Level 174 mg/dL (0-150) Laboratory Tests Test 10/10/19 11:17 10/10/19 17:15 10/11/19 06:28 Glucose (Fingerstick) 183 mg/dL (70-99) 149 mg/dL (70-99) 101 mg/dL (70-99) Sodium Level 136 mmol/L (136-145) Potassium Level 4.3 mmol/L (3.5-5.1) Chloride Level 99 mmol/L (98-107) Carbon Dioxide Level 33 mmol/L (21-32) Anion Gap 4 (6-14) Blood Urea Nitrogen 15 mg/dL (7-20) Creatinine 0.7 mg/dL (0.6-1.0) Estimated GFR (Cockcroft-Gault) 88.9 Glucose Level 109 mg/dL (70-99) Calcium Level 10.1 mg/dL (8.5-10.1) Triglycerides Level 174 mg/dL (0-150) Microbiology 10/06/19 Blood Culture - Preliminary, Resulted NO GROWTH AFTER 4 DAYS 10/03/19 Gram Stain - Final, Complete 10/03/19 Aerobic and Anaerobic Culture - Final, Complete 10/01/19 Gram Stain Evaluation - Final, Complete 10/01/19 Respiratory Culture - Final, Complete 10/01/19 Antimicrobic Susceptibility - Final, Complete 09/25/19 Urine Culture - Final, Complete 09/17/19 Gram Stain - Final, Complete 09/17/19 Aerobic Culture - Final, Complete Medications Current Medications Sodium Chloride 1,000 ml @ 1,000 mls/hr Q1H IV Last administered on 07/04/19at 03:00; Start 07/04/19 at 03:00; Stop 07/04/19 at 03:59; Status DC Ondansetron HCl (Zofran) 4 mg 1X ONCE IVP Last administered on 07/04/19at 03:27; Start 07/04/19 at 03:00; Stop 07/04/19 at 03:01; Status DC Morphine Sulfate (Morphine Sulfate) 4 mg 1X ONCE IV ; Start 07/04/19 at 03:00; Stop 07/04/19 at 03:01; Status Cancel Ketorolac Tromethamine (Toradol 30mg Vial) 30 mg 1X ONCE IV Last administered on 07/04/19at 02:54; Start 07/04/19 at 03:00; Stop 07/04/19 at 03:01; Status DC Fentanyl Citrate (Fentanyl 2ml Vial) 25 mcg 1X ONCE IVP Last administered on 07/04/19at 03:23; Start 07/04/19 at 03:30; Stop 07/04/19 at 03:31; Status DC Fentanyl Citrate (Fentanyl 2ml Vial) 100 mcg STK-MED ONCE .ROUTE ; Start 07/04/19 at 03:18; Stop 07/04/19 at 03:18; Status DC Iohexol (Omnipaque 350 Mg/ml) 90 ml 1X ONCE IV Last administered on 07/04/19at 03:25; Start 07/04/19 at 03:30; Stop 07/04/19 at 03:31; Status DC Info (CONTRAST GIVEN -- Rx MONITORING) 1 each PRN DAILY PRN MC SEE COMMENTS; Start 07/04/19 at 03:30; Stop 07/06/19 at 03:29; Status DC Hydromorphone HCl (Dilaudid) 0.5 mg 1X ONCE IV Last administered on 07/04/19at 03:55; Start 07/04/19 at 04:30; Stop 07/04/19 at 04:32; Status DC Ondansetron HCl (Zofran) 4 mg PRN Q8HRS PRN IV NAUSEA/VOMITING 1ST CHOICE; Start 07/04/19 at 05:00; Stop 07/04/19 at 09:27; Status DC Morphine Sulfate (Morphine Sulfate) 2 mg PRN Q2HR PRN IV SEVERE PAIN 7-10 Last administered on 07/05/19at 12:26; Start 07/04/19 at 05:00; Stop 07/05/19 at 14:15; Status DC Sodium Chloride 1,000 ml @ 125 mls/hr Q8H IV Last administered on 07/04/19at 20:56; Start 07/04/19 at 05:00; Stop 07/05/19 at 04:59; Status DC Hydromorphone HCl (Dilaudid) 0.5 mg PRN Q3HRS PRN IV SEVERE PAIN 7-10 Last administered on 07/05/19at 10:06; Start 07/04/19 at 05:00; Stop 07/05/19 at 12:01; Status DC Piperacillin Sod/ Tazobactam Sod 4.5 gm/Sodium Chloride 100 ml @ 200 mls/hr 1X ONCE IV Last administered on 07/04/19at 05:44; Start 07/04/19 at 06:00; Stop 07/04/19 at 06:29; Status DC Ondansetron HCl (Zofran) 4 mg PRN Q4HRS PRN IV NAUSEA/VOMITING 1ST CHOICE Last administered on 10/10/19at 12:23; Start 07/04/19 at 09:30 Insulin Human Lispro (HumaLOG) 0-9 UNITS Q6HRS SQ Last administered on at 11:19; Start 07/04/19 at 09:30 Dextrose (Dextrose 50%-Water Syringe) 12.5 gm PRN Q15MIN PRN IV SEE COMMENTS; Start 07/04/19 at 09:30 Pantoprazole Sodium (PROTONIX VIAL for IV PUSH) 40 mg DAILYAC IVP Last administered on 10/11/19at 08:58; Start 07/04/19 at 11:30 Prochlorperazine Edisylate (Compazine) 10 mg PRN Q6HRS PRN IV NAUSEA/VOMITING, 2nd CHOICE Last administered on 10/08/19at 23:50; Start 07/04/19 at 17:45 Atenolol (Tenormin) 100 mg DAILY PO ; Start 07/05/19 at 09:00; Stop 07/04/19 at 20:08; Status DC Metoprolol Tartrate (Lopressor Vial) 2.5 mg Q6HRS IVP Last administered on 07/05/19at 05:51; Start 07/04/19 at 20:15; Stop 07/05/19 at 10:02; Status DC Metoprolol Tartrate (Lopressor Vial) 5 mg Q6HRS IVP Last administered on 07/14/19at 00:12; Start 07/05/19 at 10:15; Stop 07/16/19 at 08:48; Status DC Hydromorphone HCl (Dilaudid) 1 mg PRN Q3HRS PRN IV SEVERE PAIN 7-10 Last administered on 07/11/19at 05:13; Start 07/05/19 at 12:00; Stop 07/19/19 at 00:25; Status DC Lidocaine HCl (Buffered Lidocaine 1%) 3 ml STK-MED ONCE .ROUTE ; Start 07/05/19 at 12:55; Stop 07/05/19 at 12:56; Status DC Albumin Human 500 ml @ 125 mls/hr 1X ONCE IV Last administered on 07/05/19at 14:33; Start 07/05/19 at 14:30; Stop 07/05/19 at 18:32; Status DC Norepinephrine Bitartrate 8 mg/ Dextrose 258 ml @ 17.299 mls/ hr CONT PRN IV PER PROTOCOL Last administered on 08/02/19at 12:48; Start 07/05/19 at 15:30; Stop 08/05/19 at 09:19; Status DC Sodium Chloride 1,000 ml @ 125 mls/hr Q8H IV Last administered on 07/05/19at 21:04; Start 07/05/19 at 16:00; Stop 07/06/19 at 02:42; Status DC Albumin Human 500 ml @ 125 mls/hr PRN BID PRN IV After every 2L NSS & BP < 90mm Last administered on 09/24/19at 11:40; Start 07/05/19 at 16:00 Iohexol (Omnipaque 300 Mg/ml) 60 ml 1X ONCE IV Last administered on 07/05/19at 17:20; Start 07/05/19 at 17:00; Stop 07/05/19 at 17:01; Status DC Info (CONTRAST GIVEN -- Rx MONITORING) 1 each PRN DAILY PRN MC SEE COMMENTS; Start 07/05/19 at 17:00; Stop 07/07/19 at 16:59; Status DC Meropenem 1 gm/ Sodium Chloride 100 ml @ 200 mls/hr Q8HRS IV Last administered on 07/06/19at 05:45; Start 07/05/19 at 20:00; Stop 07/06/19 at 08:48; Status DC Furosemide (Lasix) 40 mg 1X ONCE IVP Last administered on 07/05/19at 22:12; Start 07/05/19 at 22:30; Stop 07/05/19 at 22:31; Status DC Calcium Chloride 1000 mg/Sodium Chloride 110 ml @ 220 mls/hr 1X ONCE IV Last administered on 07/05/19at 22:11; Start 07/05/19 at 22:30; Stop 07/05/19 at 22:59; Status DC Albuterol Sulfate (Ventolin Neb Soln) 2.5 mg 1X ONCE NEB Last administered on 07/06/19at 00:56; Start 07/05/19 at 22:30; Stop 07/05/19 at 22:31; Status DC Insulin Human Regular (HumuLIN R VIAL) 5 unit 1X ONCE IV Last administered on 07/05/19at 22:14; Start 07/05/19 at 22:30; Stop 07/05/19 at 22:31; Status DC Magnesium Sulfate 50 ml @ 25 mls/hr 1X ONCE IV Last administered on 07/06/19at 02:57; Start 07/06/19 at 03:00; Stop 07/06/19 at 04:59; Status DC Calcium Gluconate 1000 mg/Sodium Chloride 110 ml @ 220 mls/hr 1X ONCE IV Last administered on 07/06/19at 02:46; Start 07/06/19 at 03:00; Stop 07/06/19 at 03:29; Status DC Sodium Chloride 1,000 ml @ 200 mls/hr Q5H IV Last administered on 07/06/19at 02:46; Start 07/06/19 at 03:00; Stop 07/06/19 at 10:21; Status DC Calcium Gluconate 1000 mg/Sodium Chloride 110 ml @ 220 mls/hr 1X ONCE IV Last administered on 07/06/19at 03:21; Start 07/06/19 at 03:30; Stop 07/06/19 at 03:59; Status DC Sodium Bicarbonate 50 meq/Sodium Chloride 1,050 ml @ 75 mls/hr Q14H IV Last administered on 07/10/19at 21:10; Start 07/06/19 at 07:30; Stop 07/11/19 at 10:28; Status DC Calcium Gluconate 2000 mg/Sodium Chloride 120 ml @ 220 mls/hr 1X ONCE IV Last administered on 07/06/19at 09:05; Start 07/06/19 at 07:30; Stop 07/06/19 at 08:02; Status DC Lidocaine HCl (Xylocaine-Mpf 1% 2ml Vial) 2 ml STK-MED ONCE .ROUTE ; Start 07/06/19 at 08:47; Stop 07/06/19 at 08:47; Status DC Meropenem 500 mg/ Sodium Chloride 50 ml @ 100 mls/hr Q12HR IV Last administered on 07/11/19at 21:01; Start 07/06/19 at 18:00; Stop 07/12/19 at 07:58; Status DC Lidocaine HCl (Buffered Lidocaine 1%) 3 ml STK-MED ONCE .ROUTE ; Start 07/06/19 at 09:46; Stop 07/06/19 at 09:46; Status DC Lidocaine HCl (Buffered Lidocaine 1%) 6 ml 1X ONCE INJ Last administered on 07/06/19at 10:26; Start 07/06/19 at 10:15; Stop 07/06/19 at 10:16; Status DC Info (Tpn Per Pharmacy) 1 each PRN DAILY PRN MC SEE COMMENTS Last administered on 10/10/19at 11:59; Start 07/06/19 at 12:00 Sodium Chloride 1,000 ml @ 1,000 mls/hr Q1H PRN IV hypotension; Start 07/06/19 at 12:07; Stop 07/06/19 at 18:06; Status DC Diphenhydramine HCl (Benadryl) 25 mg 1X PRN PRN IV ITCHING; Start 07/06/19 at 12:15; Stop 07/07/19 at 12:14; Status DC Diphenhydramine HCl (Benadryl) 25 mg 1X PRN PRN IV ITCHING; Start 07/06/19 at 12:15; Stop 07/07/19 at 12:14; Status DC Sodium Chloride 1,000 ml @ 400 mls/hr Q2H30M PRN IV PATENCY; Start 07/06/19 at 12:07; Stop 07/07/19 at 00:06; Status DC Info (PHARMACY MONITORING -- do not chart) 1 each PRN DAILY PRN MC SEE COMMENTS; Start 07/06/19 at 12:15; Stop 07/08/19 at 08:13; Status DC Sodium Chloride 90 meq/Calcium Gluconate 10 meq/ Multivitamins 10 ml/Chromium/ Copper/Manganese/ Seleni/Zn 1 ml/ Total Parenteral Nutrition/Amino Acids/Dextrose/ Fat Emulsion Intravenous 55.005 ml @ 2.292 mls/hr TPN CONT IV ; Start 07/06/19 at 22:00; Stop 07/06/19 at 12:33; Status DC Info (Tpn Per Pharmacy) 1 each PRN DAILY PRN MC SEE COMMENTS; Start 07/06/19 at 12:30; Status UNV Sodium Chloride 90 meq/Calcium Gluconate 10 meq/ Multivitamins 10 ml/Chromium/ Copper/Manganese/ Seleni/Zn 0.5 ml/ Total Parenteral Nutrition/Amino Acids/Dextrose/ Fat Emulsion Intravenous 1,512 ml @ 63 mls/hr TPN CONT IV Last administered on 07/06/19at 22:06; Start 07/06/19 at 22:00; Stop 07/07/19 at 21:59; Status DC Calcium Carbonate/ Glycine (Tums) 500 mg PRN AFTMEALHC PRN PO INDIGESTION; Start 07/06/19 at 17:45; Stop 08/31/19 at 10:25; Status DC Calcium Gluconate (Calcium Gluconate) 2,000 mg 1X ONCE IVP Last administered on 07/07/19at 02:19; Start 07/07/19 at 02:15; Stop 07/07/19 at 02:16; Status DC Calcium Chloride 3000 mg/Sodium Chloride 1,030 ml @ 50 mls/hr [id number] IV Last administered on 07/09/19at 02:17; Start 07/07/19 at 08:00; Stop 07/09/19 at 15:23; Status DC Lorazepam (Ativan Inj) 1 mg PRN Q4HRS PRN IVP ANXIETY / AGITATION, 2nd choic Last administered on 08/05/19at 03:51; Start 07/07/19 at 09:00; Stop 08/05/19 at 09:19; Status DC Sodium Chloride 1,000 ml @ 1,000 mls/hr Q1H PRN IV hypotension; Start 07/07/19 at 08:56; Stop 07/07/19 at 14:55; Status DC Albumin Human 200 ml @ 200 mls/hr 1X PRN PRN IV Hypotension; Start 07/07/19 at 09:00; Stop 07/07/19 at 14:59; Status DC Diphenhydramine HCl (Benadryl) 25 mg 1X PRN PRN IV ITCHING; Start 07/07/19 at 09:00; Stop 07/08/19 at 08:59; Status DC Diphenhydramine HCl (Benadryl) 25 mg 1X PRN PRN IV ITCHING; Start 07/07/19 at 09:00; Stop 07/08/19 at 08:59; Status DC Sodium Chloride 1,000 ml @ 400 mls/hr Q2H30M PRN IV PATENCY; Start 07/07/19 at 08:56; Stop 07/07/19 at 20:55; Status DC Info (PHARMACY MONITORING -- do not chart) 1 each PRN DAILY PRN MC SEE PIPE LUA; Start 07/07/19 at 09:00; Status UNV Info (PHARMACY MONITORING -- do not chart) 1 each PRN DAILY PRN MC SEE COMMENTS; Start 07/07/19 at 09:00; Stop 07/08/19 at 08:13; Status DC Digoxin (Lanoxin) 500 mcg 1X ONCE IV Last administered on 07/07/19at 10:04; Start 07/07/19 at 10:00; Stop 07/07/19 at 10:01; Status DC Digoxin (Lanoxin) 125 mcg 1X ONCE IV Last administered on 07/07/19at 17:10; Start 07/07/19 at 18:00; Stop 07/07/19 at 18:01; Status DC Magnesium Sulfate 100 ml @ 25 mls/hr 1X ONCE IV Last administered on 07/07/19at 12:48; Start 07/07/19 at 13:00; Stop 07/07/19 at 16:59; Status DC Sodium Chloride 90 meq/Magnesium Sulfate 10 meq/ Calcium Gluconate 20 meq/ Multivitamins 10 ml/Chromium/ Copper/Manganese/ Seleni/Zn 0.5 ml/ Total Parenteral Nutrition/Amino Acids/Dextrose/ Fat Emulsion Intravenous 1,512 ml @ 63 mls/hr TPN CONT IV Last administered on 07/07/19at 22:25; Start 07/07/19 at 22:00; Stop 07/08/19 at 21:59; Status DC Sodium Chloride 1,000 ml @ 1,000 mls/hr Q1H PRN IV hypotension; Start 07/08/19 at 08:05; Stop 07/08/19 at 14:04; Status DC Albumin Human 200 ml @ 200 mls/hr 1X ONCE IV Last administered on 07/08/19at 08:57; Start 07/08/19 at 08:15; Stop 07/08/19 at 09:14; Status DC Diphenhydramine HCl (Benadryl) 25 mg 1X PRN PRN IV ITCHING; Start 07/08/19 at 08:15; Stop 07/09/19 at 08:14; Status DC Diphenhydramine HCl (Benadryl) 25 mg 1X PRN PRN IV ITCHING; Start 07/08/19 at 08:15; Stop 07/09/19 at 08:14; Status DC Sodium Chloride 1,000 ml @ 400 mls/hr Q2H30M PRN IV PATENCY; Start 07/08/19 at 08:05; Stop 07/08/19 at 20:04; Status DC Info (PHARMACY MONITORING -- do not chart) 1 each PRN DAILY PRN MC SEE CO MMENTS; Start 07/08/19 at 08:15; Stop 07/12/19 at 07:57; Status DC Sodium Chloride 90 meq/Potassium Chloride 15 meq/ Potassium Phosphate 10 mmol/ Magnesium Sulfate 10 meq/Calcium Gluconate 20 meq/ Multivitamins 10 ml/Chromium/ Copper/Manganese/ Seleni/Zn 0.5 ml/ Total Parenteral Nutrition/Amino Acids/Dextrose/ Fat Emulsion Intravenous 1,512 ml @ 63 mls/hr TPN CONT IV Last administered on 07/08/19at 21:01; Start 07/08/19 at 22:00; Stop 07/09/19 at 21:59; Status DC Potassium Chloride/Water 100 ml @ 100 mls/hr 1X ONCE IV Last administered on 07/08/19at 14:09; Start 07/08/19 at 14:00; Stop 07/08/19 at 14:59; Status DC Benzocaine (Hurricaine One) 1 spray 1X ONCE MM Last administered on 07/08/19at 16:38; Start 07/08/19 at 14:30; Stop 07/08/19 at 14:31; Status DC Lidocaine HCl (Glydo (Lidocaine) Jelly) 1 ramu 1X ONCE MM Last administered on 07/08/19at 16:38; Start 07/08/19 at 14:30; Stop 07/08/19 at 14:31; Status DC Linezolid/Dextrose 300 ml @ 300 mls/hr Q12HR IV Last administered on 07/14/19at 21:04; Start 07/08/19 at 20:00; Stop 07/15/19 at 07:50; Status DC Acetaminophen (Tylenol) 650 mg PRN Q6HRS PRN PO MILD PAIN / TEMP; Start 07/09/19 at 03:30; Stop 07/09/19 at 03:36; Status DC Acetaminophen (Tylenol) 650 mg PRN Q6HRS PRN PEG MILD PAIN / TEMP Last administered on 08/04/19at 19:56; Start 07/09/19 at 03:36; Stop 08/31/19 at 10:25; Status DC Sodium Chloride 1,000 ml @ 1,000 mls/hr Q1H PRN IV hypotension; Start 07/09/19 at 07:50; Stop 07/09/19 at 13:49; Status DC Albumin Human 200 ml @ 200 mls/hr 1X PRN PRN IV Hypotension; Start 07/09/19 at 08:00; Stop 07/09/19 at 13:59; Status DC Sodium Chloride (Normal Saline Flush) 10 ml 1X PRN PRN IV AP catheter pack; Start 07/09/19 at 08:00; Stop 07/10/19 at 07:59; Status DC Sodium Chloride (Normal Saline Flush) 10 ml 1X PRN PRN IV SALES [employer] SUPER[employer]OR catheter pack; Start 07/09/19 at 08:00; Stop 07/10/19 at 07:59; Status DC Sodium Chloride 1,000 ml @ 400 mls/hr Q2H30M PRN IV PATENCY; Start 07/09/19 at 07:50; Stop 07/09/19 at 19:49; Status DC Info (PHARMACY MONITORING -- do not chart) 1 each PRN DAILY PRN MC SEE COMMENTS; Start 07/09/19 at 08:00; Status UNV Info (PHARMACY MONITORING -- do not chart) 1 each PRN DAILY PRN MC SEE COMMENTS; Start 07/09/19 at 08:00; Stop 07/11/19 at 08:25; Status DC Sodium Chloride 90 meq/Potassium Chloride 15 meq/ Potassium Phosphate 10 mmol/ Magnesium Sulfate 10 meq/Calcium Gluconate 20 meq/ Multivitamins 10 ml/Chromium/ Copper/Manganese/ Seleni/Zn 0.5 ml/ Total Parenteral Nutrition/Amino Acids/Dextrose/ Fat Emulsion Intravenous 1,512 ml @ 63 mls/hr TPN CONT IV Last administered on 07/09/19at 20:57; Start 07/09/19 at 22:00; Stop 07/10/19 at 21:59; Status DC Sodium Chloride 90 meq/Potassium Chloride 15 meq/ Potassium Phosphate 15 mmol/ Magnesium Sulfate 10 meq/Calcium Gluconate 20 meq/ Multivitamins 10 ml/Chromium/ Copper/Manganese/ Seleni/Zn 0.5 ml/ Total Parenteral Nutrition/Amino Acids/Dextrose/ Fat Emulsion Intravenous 1,512 ml @ 63 mls/hr TPN CONT IV ; Start 07/10/19 at 22:00; Stop 07/10/19 at 14:16; Status DC Sodium Chloride 90 meq/Potassium Chloride 15 meq/ Potassium Phosphate 15 mmol/ Magnesium Sulfate 10 meq/Calcium Gluconate 20 meq/ Multivitamins 10 ml/Chromium/ Copper/Manganese/ Seleni/Zn 0.5 ml/ Total Parenteral Nutrition/Amino Acids/Dextrose/ Fat Emulsion Intravenous 1,200 ml @ 50 mls/hr TPN CONT IV ; Start 07/10/19 at 22:00; Stop 07/10/19 at 14:17; Status DC Sodium Chloride 90 meq/Potassium Chloride 15 meq/ Potassium Phosphate 10 mmol/ Magnesium Sulfate 10 meq/Calcium Gluconate 20 meq/ Multivitamins 10 ml/Chromium/ Copper/Manganese/ Seleni/Zn 0.5 ml/ Total Parenteral Nutrition/Amino Acids/Dextrose/ Fat Emulsion Intravenous 1,200 ml @ 50 mls/hr TPN CONT IV Last administered on 07/10/19at 23:29; Start 07/10/19 at 22:00; Stop 07/11/19 at 21:59; Status DC Sodium Chloride 1,000 ml @ 1,000 mls/hr Q1H PRN IV hypotension; Start 07/11/19 at 07:28; Stop 07/11/19 at 13:27; Status DC Albumin Human 200 ml @ 200 mls/hr 1X ONCE IV Last administered on 07/11/19at 08:51; Start 07/11/19 at 07:30; Stop 07/11/19 at 08:29; Status DC Diphenhydramine HCl (Benadryl) 25 mg 1X PRN PRN IV ITCHING; Start 07/11/19 at 07:30; Stop 07/12/19 at 07:29; Status DC Diphenhydramine HCl (Benadryl) 25 mg 1X PRN PRN IV ITCHING; Start 07/11/19 at 07:30; Stop 07/12/19 at 07:29; Status DC Sodium Chloride 1,000 ml @ 400 mls/hr Q2H30M PRN IV PATENCY; Start 07/11/19 at 07:28; Stop 07/11/19 at 19:27; Status DC Info (PHARMACY MONITORING -- do not chart) 1 each PRN DAILY PRN MC SEE COMMENTS; Start 07/11/19 at 07:30; Stop 07/22/19 at 13:01; Status DC Metronidazole 100 ml @ 100 mls/hr Q6HRS IV Last administered on 07/27/19at 06:26; Start 07/11/19 at 08:30; Stop 07/27/19 at 09:58; Status DC Micafungin Sodium 100 mg/Dextrose 100 ml @ 100 mls/hr Q24H IV Last administered on 08/18/19at 08:18; Start 07/11/19 at 09:00; Stop 08/18/19 at 20:58; Status DC Propofol 0 ml @ As Directed STK-MED ONCE IV ; Start 07/11/19 at 07:53; Stop 07/11/19 at 07:53; Status DC Etomidate (Amidate) 20 mg STK-MED ONCE IV ; Start 07/11/19 at 07:53; Stop 07/11/19 at 07:54; Status DC Midazolam HCl (Versed) 5 mg STK-MED ONCE .ROUTE ; Start 07/11/19 at 07:57; Stop 07/11/19 at 07:57; Status DC Fentanyl Citrate 30 ml @ 0 mls/hr CONT PRN IV SEE PROTOCOL Last administered on 08/05/19at 06:12; Start 07/11/19 at 08:15; Stop 08/05/19 at 09:19; Status DC Artificial Tears (Artificial Tears) 1 drop PRN Q1HR PRN OU DRY EYE, 1st choice; Start 07/11/19 at 08:15; Stop 08/17/19 at 05:31; Status DC Midazolam HCl 50 mg/Sodium Chloride 50 ml @ 0 mls/hr CONT PRN IV SEE PROTOCOL Last administered on 07/14/19at 22:39; Start 07/11/19 at 08:15; Stop 07/16/19 at 15:59; Status DC Etomidate (Amidate) 8 mg 1X ONCE IV Last administered on 07/11/19at 08:33; Start 07/11/19 at 08:30; Stop 07/11/19 at 08:31; Status DC Succinylcholine Chloride (Anectine) 120 mg 1X ONCE IV Last administered on 07/11/19at 08:34; Start 07/11/19 at 08:30; Stop 07/11/19 at 08:31; Status DC Midazolam HCl (Versed) 5 mg 1X ONCE IV ; Start 07/11/19 at 08:30; Stop 07/11/19 at 08:31; Status DC Potassium Chloride 15 meq/ Bicarbonate Dialysis Soln w/ out KCl 5,007.5 ml @ 1,000 mls/ hr Q5H1M IV Last administered on 07/12/19at 11:11; Start 07/11/19 at 12:00; Stop 07/12/19 at 11:15; Status DC Potassium Chloride 15 meq/ Bicarbonate Dialysis Soln w/ out KCl 5,007.5 ml @ 1,000 mls/ hr Q5H1M IV Last administered on 07/12/19at 11:12; Start 07/11/19 at 12:00; Stop 07/12/19 at 11:17; Status DC Potassium Chloride 15 meq/ Bicarbonate Dialysis Soln w/ out KCl 5,007.5 ml @ 1,000 mls/ hr Q5H1M IV Last administered on 07/12/19at 11:11; Start 07/11/19 at 12:00; Stop 07/12/19 at 11:19; Status DC Sodium Chloride 90 meq/Potassium Chloride 15 meq/ Potassium Phosphate 10 mmol/ Magnesium Sulfate 10 meq/Calcium Gluconate 20 meq/ Multivitamins 10 ml/Chromium/ Copper/Manganese/ Seleni/Zn 0.5 ml/ Total Parenteral Nutrition/Amino Acids/Dextrose/ Fat Emulsion Intravenous 1,400 ml @ 58.333 mls/ hr TPN CONT IV Last administered on 07/11/19at 21:42; Start 07/11/19 at 22:00; Stop 07/12/19 at 21:59; Status DC Heparin Sodium (Porcine) (Heparin Sodium) 5,000 unit Q8HRS SQ Last administered on 07/16/19at 05:55; Start 07/11/19 at 15:00; Stop 07/16/19 at 13:28; Status DC Meropenem 500 mg/ Sodium Chloride 50 ml @ 100 mls/hr Q6HRS IV Last administered on 07/13/19at 06:00; Start 07/12/19 at 09:00; Stop 07/13/19 at 07:29; Status DC Potassium Phosphate 20 mmol/ Sodium Chloride 106.6667 ml @ 51.667 m... 1X ONCE IV Last administered on 07/12/19at 11:22; Start 07/12/19 at 10:15; Stop 07/12/19 at 12:18; Status DC Acetaminophen (Tylenol Supp) 650 mg PRN Q6HRS PRN [place] MILD PAIN / TEMP > 100.3'F Last administered on 10/06/19at 10:16; Start 07/12/19 at 10:30 Potassium Chloride/Water 100 ml @ 100 mls/hr Q1H IV Last administered on 07/12/19at 12:12; Start 07/12/19 at 11:00; Stop 07/12/19 at 12:59; Status DC Potassium Chloride 20 meq/ Bicarbonate Dialysis Soln w/ out KCl 5,010 ml @ 1,000 mls/hr Q5H1M IV Last administered on 07/13/19at 08:48; Start 07/12/19 at 12:00; Stop 07/13/19 at 13:03; Status DC Potassium Chloride 20 meq/ Bicarbonate Dialysis Soln w/ out KCl 5,010 ml @ 1,000 mls/hr Q5H1M IV Last administered on 07/17/19at 14:52; Start 07/12/19 at 11:30; Stop 07/17/19 at 19:59; Status DC Potassium Chloride 20 meq/ Bicarbonate Dialysis Soln w/ out KCl 5,010 ml @ 1,000 mls/hr Q5H1M IV Last administered on 07/17/19at 14:53; Start 07/12/19 at 11:30; Stop 07/17/19 at 19:59; Status DC Sodium Chloride 90 meq/Potassium Chloride 15 meq/ Potassium Phosphate 15 mmol/ Magnesium Sulfate 10 meq/Calcium Gluconate 15 meq/ Multivitamins 10 ml/Chromium/ Copper/Manganese/ Seleni/Zn 0.5 ml/ Total Parenteral Nutrition/Amino Acids/Dextrose/ Fat Emulsion Intravenous 1,400 ml @ 58.333 mls/ hr TPN CONT IV Last administered on 07/12/19at 22:17; Start 07/12/19 at 22:00; Stop 07/13/19 at 21:59; Status DC Cefepime HCl (Maxipime) 2 gm Q12HR IVP Last administered on 07/26/19at 20:56; Start 07/13/19 at 09:00; Stop 07/27/19 at 09:58; Status DC Daptomycin 500 mg/ Sodium Chloride 50 ml @ 100 mls/hr Q48H IV Last administered on 07/29/19at 09:57; Start 07/13/19 at 08:30; Stop 07/29/19 at 10:07; Status DC Lidocaine HCl (Buffered Lidocaine 1%) 3 ml 1X ONCE INJ Last administered on 07/13/19at 10:27; Start 07/13/19 at 10:30; Stop 07/13/19 at 10:31; Status DC Potassium Phosphate 20 mmol/ Sodium Chloride 106.6667 ml @ 51.667 m... 1X ONCE IV Last administered on 07/13/19at 12:51; Start 07/13/19 at 13:00; Stop 07/13/19 at 15:03; Status DC Sodium Chloride 90 meq/Potassium Chloride 15 meq/ Potassium Phosphate 18 mmol/ Magnesium Sulfate 8 meq/Calcium Gluconate 15 meq/ Multivitamins 10 ml/Chromium/ Copper/Manganese/ Seleni/Zn 0.5 ml/ Total Parenteral Nutrition/Amino Acids/Dextrose/ Fat Emulsion Intravenous 1,400 ml @ 58.333 mls/ hr TPN CONT IV Last administered on 07/13/19at 22:16; Start 07/13/19 at 22:00; Stop 07/14/19 at 21:59; Status DC Potassium Chloride 20 meq/ Bicarbonate Dialysis Soln w/ out KCl 5,010 ml @ 1,000 mls/hr Q5H1M IV Last administered on 07/17/19at 14:54; Start 07/13/19 at 16:00; Stop 07/17/19 at 19:59; Status DC Multi-Ingred Cream/Lotion/Oil/ Oint (Artificial Tears Eye Ointment) 1 ramu PRN Q1HR PRN OU DRY EYE, 2nd choice Last administered on 08/01/19at 08:19; Start 07/13/19 at 17:30; Stop 09/21/19 at 14:39; Status DC Sodium Chloride 90 meq/Potassium Chloride 15 meq/ Potassium Phosphate 18 mmol/ Magnesium Sulfate 8 meq/Calcium Gluconate 15 meq/ Multivitamins 10 ml/Chromium/ Copper/Manganese/ Seleni/Zn 0.5 ml/ Total Parenteral Nutrition/Amino Acids/Dextrose/ Fat Emulsion Intravenous 1,400 ml @ 58.333 mls/ hr TPN CONT IV Last administered on 07/14/19at 22:00; Start 07/14/19 at 22:00; Stop 07/15/19 at 21:59; Status DC Albumin Human 500 ml @ 125 mls/hr 1X ONCE IV ; Start 07/14/19 at 14:15; Stop 07/14/19 at 18:14; Status DC Sodium Chloride 90 meq/Potassium Chloride 15 meq/ Potassium Phosphate 18 mmol/ Magnesium Sulfate 8 meq/Calcium Gluconate 15 meq/ Multivitamins 10 ml/Chromium/ Copper/Manganese/ Seleni/Zn 0.5 ml/ Insulin Human Regular 10 unit/ Total Parenteral Nutrition/Amino Acids/Dextrose/ Fat Emulsion Intravenous 1,400 ml @ 58.333 mls/ hr TPN CONT IV Last administered on 07/15/19at 21:43; Start 07/15/19 at 22:00; Stop 07/16/19 at 21:59; Status DC Lidocaine HCl (Buffered Lidocaine 1%) 3 ml STK-MED ONCE .ROUTE ; Start 07/13/19 at 10:00; Stop 07/15/19 at 13:57; Status DC Midazolam HCl 100 mg/Sodium Chloride 100 ml @ 7 mls/hr CONT PRN IV SEE PROTOCOL Last administered on 07/27/19at 15:35; Start 07/16/19 at 16:00; Stop 09/21/19 at 14:38; Status DC Sodium Chloride 90 meq/Potassium Chloride 15 meq/ Potassium Phosphate 18 mmol/ Magnesium Sulfate 8 meq/Calcium Gluconate 15 meq/ Multivitamins 10 ml/Chromium/ Copper/Manganese/ Seleni/Zn 0.5 ml/ Insulin Human Regular 15 unit/ Total Parenteral Nutrition/Amino Acids/Dextrose/ Fat Emulsion Intravenous 1,400 ml @ 58.333 mls/ hr TPN CONT IV Last administered on 07/16/19at 20:34; Start 07/16/19 at 22:00; Stop 07/17/19 at 21:59; Status DC Info (Icu Electrolyte Protocol) 1 ea CONT PRN PRN MC PER PROTOCOL; Start 07/17/19 at 13:15 Sodium Chloride 90 meq/Potassium Chloride 15 meq/ Potassium Phosphate 18 mmol/ Magnesium Sulfate 8 meq/Calcium Gluconate 15 meq/ Multivitamins 10 ml/Chromium/ Copper/Manganese/ Seleni/Zn 0.5 ml/ Insulin Human Regular 15 unit/ Total Parenteral Nutrition/Amino Acids/Dextrose/ Fat Emulsion Intravenous 1,400 ml @ 58.333 mls/ hr TPN CONT IV Last administered on 07/17/19at 22:05; Start 07/17/19 at 22:00; Stop 07/18/19 at 21:59; Status DC Potassium Chloride 15 meq/ Bicarbonate Dialysis Soln w/ out KCl 5,007.5 ml @ 1,000 mls/ hr Q5H1M IV Last administered on 07/20/19at 18:14; Start 07/17/19 at 20:00; Stop 07/21/19 at 13:08; Status DC Potassium Chloride 15 meq/ Bicarbonate Dialysis Soln w/ out KCl 5,007.5 ml @ 1,000 mls/ hr Q5H1M IV Last administered on 07/20/19at 18:14; Start 07/17/19 at 20:00; Stop 07/21/19 at 13:08; Status DC Potassium Chloride 15 meq/ Bicarbonate Dialysis Soln w/ out KCl 5,007.5 ml @ 1,000 mls/ hr Q5H1M IV Last administered on 07/20/19at 18:14; Start 07/17/19 at 20:00; Stop 07/21/19 at 13:08; Status DC Iohexol (Omnipaque 240 Mg/ml) 30 ml 1X ONCE PO Last administered on 07/18/19at 11:30; Start 07/18/19 at 11:30; Stop 07/18/19 at 11:33; Status DC Info (CONTRAST GIVEN -- Rx MONITORING) 1 each PRN DAILY PRN MC SEE COMMENTS; Start 07/18/19 at 11:45; Stop 07/20/19 at 11:44; Status DC Sodium Chloride 90 meq/Potassium Chloride 15 meq/ Potassium Phosphate 18 mmol/ Magnesium Sulfate 8 meq/Calcium Gluconate 15 meq/ Multivitamins 10 ml/Chromium/ Copper/Manganese/ Seleni/Zn 0.5 ml/ Insulin Human Regular 15 unit/ Total Parenteral Nutrition/Amino Acids/Dextrose/ Fat Emulsion Intravenous 1,400 ml @ 58.333 mls/ hr TPN CONT IV Last administered on 07/18/19at 21:47; Start 07/18/19 at 22:00; Stop 07/19/19 at 21:59; Status DC Sodium Chloride 90 meq/Potassium Chloride 15 meq/ Potassium Phosphate 18 mmol/ Magnesium Sulfate 8 meq/Calcium Gluconate 15 meq/ Multivitamins 10 ml/Chromium/ Copper/Manganese/ Seleni/Zn 0.5 ml/ Insulin Human Regular 20 unit/ Total Parenteral Nutrition/Amino Acids/Dextrose/ Fat Emulsion Intravenous 1,400 ml @ 58.333 mls/ hr TPN CONT IV Last administered on 07/19/19at 21:36; Start 07/19/19 at 22:00; Stop 07/20/19 at 21:59; Status DC Alteplase, Recombinant (Cathflo For Central Catheter Clearance) 1 mg 1X ONCE INT CAT Last administered on 07/19/19at 20:03; Start 07/19/19 at 19:30; Stop 07/19/19 at 19:46; Status DC Alteplase, Recombinant (Cathflo For Central Catheter Clearance) 1 mg 1X ONCE INT CAT Last administered on 07/19/19at 22:05; Start 07/19/19 at 22:00; Stop 07/19/19 at 22:01; Status DC Sodium Chloride 90 meq/Potassium Chloride 15 meq/ Potassium Phosphate 18 mmol/ Magnesium Sulfate 8 meq/Calcium Gluconate 15 meq/ Multivitamins 10 ml/Chromium/ Copper/Manganese/ Seleni/Zn 0.5 ml/ Insulin Human Regular 20 unit/ Total Parenteral Nutrition/Amino Acids/Dextrose/ Fat Emulsion Intravenous 1,400 ml @ 58.333 mls/ hr TPN CONT IV Last administered on 07/20/19at 21:30; Start 07/20/19 at 22:00; Stop 07/21/19 at 21:59; Status DC Dexmedetomidine HCl 400 mcg/ Sodium Chloride 100 ml @ 0 mls/hr CONT PRN IV ANXIETY / AGITATION Last administered on 09/17/19at 12:57; Start 07/21/19 at 08:15; Stop 09/17/19 at 18:31; Status DC Sodium Chloride 500 ml @ 500 mls/hr 1X PRN PRN IV ELEVATED BP, SEE COMMENTS; Start 07/21/19 at 08:15 Atropine Sulfate (ATROPINE 0.5mg SYRINGE) 0.5 mg PRN Q5MIN PRN IV SEE COMMENTS; Start 07/21/19 at 08:15 Furosemide (Lasix) 20 mg 1X ONCE IVP Last administered on 07/21/19at 08:19; Start 07/21/19 at 08:15; Stop 07/21/19 at 08:16; Status DC Lidocaine HCl (Buffered Lidocaine 1%) 3 ml STK-MED ONCE .ROUTE ; Start 07/21/19 at 08:39; Stop 07/21/19 at 08:39; Status DC Lidocaine HCl (Buffered Lidocaine 1%) 6 ml 1X ONCE INJ Last administered on 07/21/19at 09:05; Start 07/21/19 at 09:00; Stop 07/21/19 at 09:06; Status DC Sodium Chloride 90 meq/Potassium Chloride 15 meq/ Potassium Phosphate 18 mmol/ Magnesium Sulfate 8 meq/Calcium Gluconate 15 meq/ Multivitamins 10 ml/Chromium/ Copper/Manganese/ Seleni/Zn 0.5 ml/ Insulin Human Regular 20 unit/ Total Parenteral Nutrition/Amino Acids/Dextrose/ Fat Emulsion Intravenous 1,400 ml @ 58.333 mls/ hr TPN CONT IV Last administered on 07/21/19at 22:45; Start 07/21/19 at 22:00; Stop 07/22/19 at 21:59; Status DC Sodium Chloride 1,000 ml @ 1,000 mls/hr Q1H PRN IV hypotension; Start 07/22/19 at 07:30; Stop 07/22/19 at 13:29; Status DC Albumin Human 200 ml @ 200 mls/hr 1X PRN PRN IV Hypotension Last administered on 07/22/19at 09:36; Start 07/22/19 at 07:30; Stop 07/22/19 at 13:29; Status DC Sodium Chloride (Normal Saline Flush) 10 ml 1X PRN PRN IV AP catheter pack; Start 07/22/19 at 07:30; Stop 07/22/19 at 21:29; Status DC Sodium Chloride (Normal Saline Flush) 10 ml 1X PRN PRN IV [employer]PER[employer] catheter pack; Start 07/22/19 at 07:30; Stop 07/23/19 at 07:29; Status DC Sodium Chloride 1,000 ml @ 400 mls/hr Q2H30M PRN IV PATENCY; Start 07/22/19 at 07:30; Stop 07/22/19 at 19:29; Status DC Info (PHARMACY MONITORING -- do not chart) 1 each PRN DAILY PRN MC SEE COMMENTS; Start 07/22/19 at 07:30; Stop 07/22/19 at 13:02; Status DC Info (PHARMACY MONITORING -- do not chart) 1 each PRN DAILY PRN MC SEE COMMENTS; Start 07/22/19 at 07:30; Stop 07/24/19 at 12:45; Status DC Sodium Chloride 90 meq/Potassium Chloride 15 meq/ Potassium Phosphate 10 mmol/ Magnesium Sulfate 8 meq/Calcium Gluconate 15 meq/ Multivitamins 10 ml/Chromium/ Copper/Manganese/ Seleni/Zn 0.5 ml/ Insulin Human Regular 25 unit/ Total Parenteral Nutrition/Amino Acids/Dextrose/ Fat Emulsion Intravenous 1,400 ml @ 58.333 mls/ hr TPN CONT IV Last administered on 07/22/19at 22:19; Start 07/22/19 at 22:00; Stop 07/23/19 at 21:59; Status DC Heparin Sodium (Porcine) (Heparin Sodium) 5,000 unit Q12HR SQ Last administered on 08/14/19at 08:59; Start 07/22/19 at 21:00; Stop 08/14/19 at 10:05; Status DC Ondansetron HCl (Zofran) 4 mg PRN Q6HRS PRN IV NAUSEA/VOMITING; Start 07/25/19 at 07:00; Stop 07/26/19 at 06:59; Status DC Fentanyl Citrate (Fentanyl 2ml Vial) 25 mcg PRN Q5MIN PRN IV MILD PAIN 1-3; Start 07/25/19 at 07:00; Stop 07/26/19 at 06:59; Status DC Fentanyl Citrate (Fentanyl 2ml Vial) 50 mcg PRN Q5MIN PRN IV MODERATE TO SEVERE PAIN; Start 07/25/19 at 07:00; Stop 07/26/19 at 06:59; Status DC Ringer's Solution 1,000 ml @ 30 mls/hr Q24H IV ; Start 07/25/19 at 07:00; Stop 07/25/19 at 18:59; Status DC Lidocaine HCl (Xylocaine-Mpf 1% 2ml Vial) 2 ml PRN 1X PRN ID PRIOR TO IV START; Start 07/25/19 at 07:00; Stop 07/26/19 at 06:59; Status DC Prochlorperazine Edisylate (Compazine) 5 mg PACU PRN PRN IV NAUSEA, MRX1; Start 07/25/19 at 07:00; Stop 07/26/19 at 06:59; Status DC Sodium Chloride 1,000 ml @ 1,000 mls/hr Q1H PRN IV hypotension; Start 07/23/19 at 09:10; Stop 07/23/19 at 15:09; Status DC Albumin Human 200 ml @ 200 mls/hr 1X PRN PRN IV Hypotension Last administered on 07/23/19at 10:10; Start 07/23/19 at 09:15; Stop 07/23/19 at 15:14; Status DC Sodium Chloride 1,000 ml @ 400 mls/hr Q2H30M PRN IV PATENCY; Start 07/23/19 at 09:10; Stop 07/23/19 at 21:09; Status DC Info (PHARMACY MONITORING -- do not chart) 1 each PRN DAILY PRN MC SEE COMMENTS; Start 07/23/19 at 09:15; Stop 07/24/19 at 12:45; Status DC Info (PHARMACY MONITORING -- do not chart) 1 each PRN DAILY PRN MC SEE COMMENTS ; Start 07/23/19 at 09:15; Stop 07/24/19 at 12:45; Status DC Sodium Chloride 90 meq/Potassium Chloride 15 meq/ Potassium Phosphate 10 mmol/ Magnesium Sulfate 8 meq/Calcium Gluconate 15 meq/ Multivitamins 10 ml/Chromium/ Copper/Manganese/ Seleni/Zn 0.5 ml/ Insulin Human Regular 25 unit/ Total Parenteral Nutrition/Amino Acids/Dextrose/ Fat Emulsion Intravenous 1,400 ml @ 58.333 mls/ hr TPN CONT IV Last administered on 07/23/19at 22:10; Start 07/23/19 at 22:00; Stop 07/24/19 at 21:59; Status DC Magnesium Sulfate 50 ml @ 25 mls/hr PRN DAILY PRN IV for Mag < 1.7 on am labs Last administered on 10/06/19at 10:57; Start 07/24/19 at 09:15 Sodium Chloride 90 meq/Potassium Chloride 15 meq/ Potassium Phosphate 10 mmol/ Magnesium Sulfate 8 meq/Calcium Gluconate 15 meq/ Multivitamins 10 ml/Chromium/ Copper/Manganese/ Seleni/Zn 0.5 ml/ Insulin Human Regular 25 unit/ Total Parenteral Nutrition/Amino Acids/Dextrose/ Fat Emulsion Intravenous 1,400 ml @ 58.333 mls/ hr TPN CONT IV Last administered on 07/24/19at 21:20; Start 07/24/19 at 22:00; Stop 07/25/19 at 21:59; Status DC Sodium Chloride 1,000 ml @ 1,000 mls/hr Q1H PRN IV hypotension; Start 07/24/19 a t 12:23; Stop 07/24/19 at 18:22; Status DC Albumin Human 200 ml @ 200 mls/hr 1X ONCE IV Last administered on 07/24/19at 13:34; Start 07/24/19 at 12:30; Stop 07/24/19 at 13:29; Status DC Diphenhydramine HCl (Benadryl) 25 mg 1X PRN PRN IV ITCHING; Start 07/24/19 at 12:30; Stop 07/25/19 at 12:29; Status DC Diphenhydramine HCl (Benadryl) 25 mg 1X PRN PRN IV ITCHING; Start 07/24/19 at 1 2:30; Stop 07/25/19 at 12:29; Status DC Info (PHARMACY MONITORING -- do not chart) 1 each PRN DAILY PRN MC SEE COMMENTS; Start 07/24/19 at 12:30; Status Cancel Bupivacaine HCl/ Epinephrine Bitart (Sensorcain-Epi 0.5%-1:[id number] Mpf) 30 ml STK-MED ONCE .ROUTE Last administered on 07/25/19at 11:44; Start 07/25/19 at 11:00; Stop 07/25/19 at 11:01; Status DC Cellulose (Surgicel Fibrillar 1x2) 1 each STK-MED ONCE .ROUTE ; Start 07/25/19 at 11:00; Stop 07/25/19 at 11:01; Status DC Sodium Chloride 90 meq/Potassium Chloride 15 meq/ Potassium Phosphate 10 mmol/ Magnesium Sulfate 12 meq/Calcium Gluconate 15 meq/ Multivitamins 10 ml/Chromium/ Copper/Manganese/ Seleni/Zn 0.5 ml/ Insulin Human Regular 25 unit/ Total Parenteral Nutrition/Amino Acids/Dextrose/ Fat Emulsion Intravenous 1,400 ml @ 58.333 mls/ hr TPN CONT IV Last administered on 07/25/19at 22:24; Start 07/25/19 at 22:00; Stop 07/26/19 at 21:59; Status DC Propofol 20 ml @ As Directed STK-MED ONCE IV ; Start 07/25/19 at 11:07; Stop 07/25/19 at 11:07; Status DC Cellulose (Surgicel Hemostat 4x8) 1 each STK-MED ONCE .ROUTE Last administered on 07/25/19at 11:44; Start 07/25/19 at 11:55; Stop 07/25/19 at 11:56; Status DC Sevoflurane (Ultane) 60 ml STK-MED ONCE IH ; Start 07/25/19 at 12:46; Stop 07/25/19 at 12:46; Status DC Sodium Chloride 1,000 ml @ 1,000 mls/hr Q1H PRN IV hypotension; Start 07/25/19 at 13:51; Stop 07/25/19 at 19:50; Status DC Albumin Human 200 ml @ 200 mls/hr 1X PRN PRN IV Hypotension Last administered on 07/25/19at 14:51; Start 07/25/19 at 14:00; Stop 07/25/19 at 19:59; Status DC Diphenhydramine HCl (Benadryl) 25 mg 1X PRN PRN IV ITCHING; Start 07/25/19 at 14:00; Stop 07/26/19 at 13:59; Status DC Diphenhydramine HCl (Benadryl) 25 mg 1X PRN PRN IV ITCHING; Start 07/25/19 at 14:00; Stop 07/26/19 at 13:59; Status DC Sodium Chloride 1,000 ml @ 400 mls/hr Q2H30M PRN IV PATENCY; Start 07/25/19 at 13:51; Stop 07/26/19 at 01:50; Status DC Info (PHARMACY MONITORING -- do not chart) 1 each PRN DAILY PRN MC SEE COMMENTS; Start 07/25/19 at 14:00; Stop 07/28/19 at 08:16; Status DC Heparin Sodium (Porcine) (Hep Lock Adult) 500 unit STK-MED ONCE IVP ; Start 07/26/19 at 09:29; Stop 07/26/19 at 09:30; Status DC Sodium Chloride 1,000 ml @ 1,000 mls/hr Q1H PRN IV hypotension; Start 07/26/19 at 10:43; Stop 07/26/19 at 16:42; Status DC Sodium Chloride 1,000 ml @ 400 mls/hr Q2H30M PRN IV PATENCY; Start 07/26/19 at 10:43; Stop 07/26/19 at 22:42; Status DC Info (PHARMACY MONITORING -- do not chart) 1 each PRN DAILY PRN MC SEE COMMENTS; Start 07/26/19 at 10:45; Status UNV Info (PHARMACY MONITORING -- do not chart) 1 each PRN DAILY PRN MC SEE COMMENTS; Start 07/26/19 at 10:45; Status UNV Sodium Chloride 90 meq/Potassium Chloride 15 meq/ Magnesium Sulfate 12 meq/Calcium Gluconate 15 meq/ Multivitamins 10 ml/Chromium/ Copper/Manganese/ Seleni/Zn 0.5 ml/ Insulin Human Regular 25 unit/ Total Parenteral Nutrition/Amino Acids/Dextrose/ Fat Emulsion Intravenous 1,400 ml @ 58.333 mls/ hr TPN CONT IV Last administered on 07/26/19at 22:13; Start 07/26/19 at 22:00; Stop 07/27/19 at 21:59; Status DC Sodium Chloride 1,000 ml @ 1,000 mls/hr Q1H PRN IV hypotension; Start 07/27/19 at 07:50; Stop 07/27/19 at 13:49; Status DC Albumin Human 200 ml @ 200 mls/hr 1X ONCE IV ; Start 07/27/19 at 08:00; Stop 07/27/19 at 08:53; Status DC Diphenhydramine HCl (Benadryl) 25 mg 1X PRN PRN IV ITCHING; Start 07/27/19 at 08:00; Stop 07/28/19 at 07:59; Status DC Diphenhydramine HCl (Benadryl) 25 mg 1X PRN PRN IV ITCHING; Start 07/27/19 at 08:00; Stop 07/28/19 at 07:59; Status DC Info (PHARMACY MONITORING -- do not chart) 1 each PRN DAILY PRN MC SEE COMMENTS; Start 07/27/19 at 08:00; Stop 07/28/19 at 08:16; Status DC Albumin Human 50 ml @ 50 mls/hr 1X ONCE IV ; Start 07/27/19 at 08:53; Stop 07/27/19 at 08:56; Status DC Albumin Human 200 ml @ 50 mls/hr PRN 1X PRN IV HYPOTENSION Last administered on 08/02/19at 11:54; Start 07/27/19 at 09:00; Stop 09/08/19 at 11:14; Status DC Meropenem 500 mg/ Sodium Chloride 50 ml @ 100 mls/hr Q12H IV Last administered on 08/16/19at 10:45; Start 07/27/19 at 10:00; Stop 08/16/19 at 12:37; Status DC Sodium Chloride 90 meq/Magnesium Sulfate 12 meq/ Calcium Gluconate 15 meq/ Multivitamins 10 ml/Chromium/ Copper/Manganese/ Seleni/Zn 0.5 ml/ Insulin Human Regular 25 unit/ Total Parenteral Nutrition/Amino Acids/Dextrose/ Fat Emulsion Intravenous 1,400 ml @ 58.333 mls/ hr TPN CONT IV Last administered on 07/27/19at 21:41; Start 07/27/19 at 22:00; Stop 07/28/19 at 21:59; Status DC Sodium Chloride 1,000 ml @ 1,000 mls/hr Q1H PRN IV hypotension; Start 07/28/19 at 07:58; Stop 07/28/19 at 13:57; Status DC Albumin Human 200 ml @ 200 mls/hr 1X PRN PRN IV Hypotension Last administered on 07/28/19at 09:30; Start 07/28/19 at 08:00; Stop 07/28/19 at 13:59; Status DC Sodium Chloride 1,000 ml @ 400 mls/hr Q2H30M PRN IV PATENCY; Start 07/28/19 at 07:58; Stop 07/28/19 at 19:57; Status DC Info (PHARMACY MONITORING -- do not chart) 1 each PRN DAILY PRN MC SEE COMMENTS; Start 07/28/19 at 08:00; Status Cancel Info (PHARMACY MONITORING -- do not chart) 1 each PRN DAILY PRN MC SEE COMMENTS; Start 07/28/19 at 08:15; Status UNV Sodium Chloride 90 meq/Potassium Phosphate 5 mmol/ Magnesium Sulfate 12 meq/Calcium Gluconate 15 meq/ Multivitamins 10 ml/Chromium/ Copper/Manganese/ Seleni/Zn 0.5 ml/ Insulin Human Regular 30 unit/ Total Parenteral Nutrition/Amino Acids/Dextrose/ Fat Emulsion Intravenous 1,400 ml @ 58.333 mls/ hr TPN CONT IV Last administered on 07/28/19at 22:08; Start 07/28/19 at 22:00; Stop 07/29/19 at 21:59; Status DC Linezolid/Dextrose 300 ml @ 300 mls/hr Q12HR IV Last administered on 08/08/19at 20:40; Start 07/29/19 at 11:00; Stop 08/09/19 at 08:10; Status DC Sodium Chloride 90 meq/Potassium Phosphate 15 mmol/ Magnesium Sulfate 12 meq/Zachariah cium Gluconate 15 meq/ Multivitamins 10 ml/Chromium/ Copper/Manganese/ Seleni/Zn 0.5 ml/ Insulin Human Regular 30 unit/ Total Parenteral Nutrition/Amino Acids/Dextrose/ Fat Emulsion Intravenous 1,400 ml @ 58.333 mls/ hr TPN CONT IV Last administered on 07/29/19at 21:49; Start 07/29/19 at 22:00; Stop 07/30/19 at 21:59; Status DC Sodium Chloride 90 meq/Potassium Phosphate 15 mmol/ Magnesium Sulfate 12 meq/Calcium Gluconate 15 meq/ Multivitamins 10 ml/Chromium/ Copper/Manganese/ Seleni/Zn 0.5 ml/ Insulin Human Regular 40 unit/ Total Parenteral Nutrition/Amino Acids/Dextrose/ Fat Emulsion Intravenous 1,400 ml @ 58.333 mls/ hr TPN CONT IV Last administered on 07/30/19at 21:21; Start 07/30/19 at 22:00; Stop 07/31/19 at 21:59; Status DC Sodium Chloride 1,000 ml @ 1,000 mls/hr Q1H PRN IV hypotension; Start 07/30/19 at 13:26; Stop 07/30/19 at 19:25; Status DC Albumin Human 200 ml @ 200 mls/hr 1X PRN PRN IV Hypotension Last administered on 07/30/19at 15:00; Start 07/30/19 at 13:30; Stop 07/30/19 at 19:29; Status DC Sodium Chloride (Normal Saline Flush) 10 ml 1X PRN PRN IV AP catheter pack; Start 07/30/19 at 13:30; Stop 07/31/19 at 13:29; Status DC Sodium Chloride (Normal Saline Flush) 10 ml 1X PRN PRN IV [employer] catheter pack; Start 07/30/19 at 13:30; Stop 07/31/19 at 13:29; Status DC Sodium Chloride 1,000 ml @ 400 mls/hr Q2H30M PRN IV PATENCY; Start 07/30/19 at 13:26; Stop 07/31/19 at 01:25; Status DC Info (PHARMACY MONITORING -- do not chart) 1 each PRN DAILY PRN MC SEE COMMENTS; Start 07/30/19 at 13:30; Stop 07/30/19 at 13:33; Status DC Info (PHARMACY MONITORING -- do not chart) 1 each PRN DAILY PRN MC SEE COMMENTS; Start 07/30/19 at 13:30; Stop 07/30/19 at 13:34; Status DC Sodium Chloride 90 meq/Potassium Phosphate 19 mmol/ Magnesium Sulfate 12 meq/Calcium Gluconate 15 meq/ Multivitamins 10 ml/Chromium/ Copper/Manganese/ Seleni/Zn 0.5 ml/ Insulin Human Regular 40 unit/ Total Parenteral Nutrition/Amino Acids/Dextrose/ Fat Emulsion Intravenous 1,400 ml @ 58.333 mls/ hr TPN CONT IV Last administered on 07/31/19at 21:54; Start 07/31/19 at 22:00; Stop 08/01/19 at 21:59; Status DC Sodium Chloride 1,000 ml @ 1,000 mls/hr Q1H PRN IV hypotension; Start 08/01/19 at 09:35; Stop 08/01/19 at 15:34; Status DC Albumin Human 200 ml @ 200 mls/hr 1X PRN PRN IV Hypotension; Start 08/01/19 at 09:45; Stop 08/01/19 at 15:44; Status DC Diphenhydramine HCl (Benadryl) 25 mg 1X PRN PRN IV ITCHING; Start 08/01/19 at 09:45; Stop 08/02/19 at 09:44; Status DC Diphenhydramine HCl (Benadryl) 25 mg 1X PRN PRN IV ITCHING; Start 08/01/19 at 09:45; Stop 08/02/19 at 09:44; Status DC Sodium Chloride 1,000 ml @ 400 mls/hr Q2H30M PRN IV PATENCY; Start 08/01/19 at 09:35; Stop 08/01/19 at 21:34; Status DC Info (PHARMACY MONITORING -- do not chart) 1 each PRN DAILY PRN MC SEE COMMENTS ; Start 08/01/19 at 09:45; Status Cancel Sodium Chloride 100 meq/Potassium Phosphate 19 mmol/ Magnesium Sulfate 12 meq/Calcium Gluconate 15 meq/ Multivitamins 10 ml/Chromium/ Copper/Manganese/ Seleni/Zn 0.5 ml/ Insulin Human Regular 40 unit/ Potassium Chloride 20 meq/ Total Parenteral Nutrition/Amino Acids/Dextrose/ Fat Emulsion Intravenous 1,400 ml @ 58.333 mls/ hr TPN CONT IV Last administered on 08/01/19at 22:02; Start 08/01/19 at 22:00; Stop 08/02/19 at 21:59; Status DC Furosemide (Lasix) 40 mg 1X ONCE IVP Last administered on 08/01/19at 14:39; Start 08/01/19 at 14:30; Stop 08/01/19 at 14:31; Status DC Metronidazole 100 ml @ 100 mls/hr Q8HRS IV Last administered on 08/09/19at 06:04; Start 08/02/19 at 10:00; Stop 08/09/19 at 08:10; Status DC Sodium Chloride 1,000 ml @ 1,000 mls/hr Q1H PRN IV hypotension; Start 08/02/19 at 08:00; Stop 08/02/19 at 13:59; Status DC Albumin Human 200 ml @ 200 mls/hr 1X PRN PRN IV Hypotension; Start 08/02/19 at 08:00; Stop 08/02/19 at 13:59; Status DC Sodium Chloride 1,000 ml @ 400 mls/hr Q2H30M PRN IV PATENCY; Start 08/02/19 at 08:00; Stop 08/02/19 at 19:59; Status DC Info (PHARMACY MONITORING -- do not chart) 1 each PRN DAILY PRN MC SEE COMMENTS; Start 08/02/19 at 11:30; Status UNV Info (PHARMACY MONITORING -- do not chart) 1 each PRN DAILY PRN MC SEE COMMENTS; Start 08/02/19 at 11:30; Stop 08/04/19 at 12:13; Status DC Sodium Chloride 100 meq/Potassium Phosphate 19 mmol/ Magnesium Sulfate 12 meq/Calcium Gluconate 15 meq/ Multivitamins 10 ml/Chromium/ Copper/Manganese/ Seleni/Zn 0.5 ml/ Insulin Human Regular 40 unit/ Potassium Chloride 20 meq/ Total Parenteral Nutrition/Amino Acids/Dextrose/ Fat Emulsion Intravenous 1,400 ml @ 58.333 mls/ hr TPN CONT IV Last administered on 08/02/19at 21:52; Start 08/02/19 at 22:00; Stop 08/03/19 at 21:59; Status DC Sodium Chloride (Normal Saline Flush) 10 ml QSHIFT PRN IV AFTER MEDS AND BLOOD DRAWS; Start 08/02/19 at 15:00; Stop 08/30/19 at 11:27; Status DC Sodium Chloride (Normal Saline Flush) 10 ml PRN Q5MIN PRN IV AFTER MEDS AND BLOOD DRAWS; Start 08/02/19 at 15:00 Sodium Chloride (Normal Saline Flush) 20 ml PRN Q5MIN PRN IV AFTER MEDS AND BLO OD DRAWS; Start 08/02/19 at 15:00 Sodium Chloride 100 meq/Potassium Phosphate 19 mmol/ Magnesium Sulfate 12 meq/Calcium Gluconate 15 meq/ Multivitamins 10 ml/Chromium/ Copper/Manganese/ Seleni/Zn 0.5 ml/ Insulin Human Regular 40 unit/ Potassium Chloride 20 meq/ Total Parenteral Nutrition/Amino Acids/Dextrose/ Fat Emulsion Intravenous 1,400 ml @ 58.333 mls/ hr TPN CONT IV Last administered on 08/03/19at 21:20; Start 08/03/19 at 22:00; Stop 08/04/19 at 21:59; Status DC Lidocaine HCl (Buffered Lidocaine 1%) 3 ml STK-MED ONCE .ROUTE ; Start 08/03/19 at 13:16; Stop 08/03/19 at 13:16; Status DC Lidocaine HCl (Buffered Lidocaine 1%) 6 ml 1X ONCE INJ Last administered on 08/03/19at 13:45; Start 08/03/19 at 13:30; Stop 08/03/19 at 13:31; Status DC Albumin Human 100 ml @ 100 mls/hr 1X ONCE IV Last administered on 08/03/19at 15:41; Start 08/03/19 at 15:00; Stop 08/03/19 at 15:59; Status DC Albumin Human 50 ml @ 50 mls/hr 1X ONCE IV Last administered on 08/03/19at 15:00; Start 08/03/19 at 15:00; Stop 08/03/19 at 15:59; Status DC Info (PHARMACY MONITORING -- do not chart) 1 each PRN DAILY PRN MC SEE COMMENTS; Start 08/04/19 at 11:30; Status Cancel Info (PHARMACY MONITORING -- do not chart) 1 each PRN DAILY PRN MC SEE COMMENTS; Start 08/04/19 at 11:30; Status UNV Sodium Chloride 100 meq/Potassium Phosphate 10 mmol/ Magnesium Sulfate 12 meq/Calcium Gluconate 15 meq/ Multivitamins 10 ml/Chromium/ Copper/Manganese/ Seleni/Zn 0.5 ml/ Insulin Human Regular 35 unit/ Potassium Chloride 20 meq/ Total Parenteral Nutrition/Amino Acids/Dextrose/ Fat Emulsion Intravenous 1,400 ml @ 58.333 mls/ hr TPN CONT IV Last administered on 08/04/19at 22:10; Start 08/04/19 at 22:00; Stop 08/05/19 at 21:59; Status DC Sodium Chloride 100 meq/Potassium Phosphate 5 mmol/ Magnesium Sulfate 12 meq/Calcium Gluconate 15 meq/ Multivitamins 10 ml/Chromium/ Copper/Manganese/ Seleni/Zn 0.5 ml/ Insulin Human Regular 35 unit/ Potassium Chloride 20 meq/ Total Parenteral Nutrition/Amino Acids/Dextrose/ Fat Emulsion Intravenous 1,400 ml @ 58.333 mls/ hr TPN CONT IV Last administered on 08/05/19at 22:59; Start 08/05/19 at 22:00; Stop 08/06/19 at 21:59; Status DC Sodium Chloride 1,000 ml @ 1,000 mls/hr Q1H PRN IV hypotension; Start 08/06/19 at 08:27; Stop 08/06/19 at 14:26; Status DC Albumin Human 200 ml @ 200 mls/hr 1X PRN PRN IV Hypotension Last administered on 08/06/19at 09:18; Start 08/06/19 at 08:30; Stop 08/06/19 at 14:29; Status DC Sodium Chloride 1,000 ml @ 400 mls/hr Q2H30M PRN IV PATENCY; Start 08/06/19 at 08:27; Stop 08/06/19 at 20:26; Status DC Info (PHARMACY MONITORING -- do not chart) 1 each PRN DAILY PRN MC SEE COMMENTS; Start 08/06/19 at 08:30; Status Cancel Info (PHARMACY MONITORING -- do not chart) 1 each PRN DAILY PRN MC SEE COMMENTS; Start 08/06/19 at 08:30; Stop 08/14/19 at 13:10; Status DC Sodium Chloride 100 meq/Potassium Chloride 40 meq/ Magnesium Sulfate 15 meq/Calcium Gluconate 15 meq/ Multivitamins 10 ml/Chromium/ Copper/Manganese/ Seleni/Zn 0.5 ml/ Insulin Human Regular 35 unit/ Total Parenteral Nutrition/Amino Acids/Dextrose/ Fat Emulsion Intravenous 1,400 ml @ 58.333 mls/ hr TPN CONT IV Last administered on 08/06/19at 22:00; Start 08/06/19 at 22:00; Stop 08/07/19 at 21:59; Status DC Potassium Chloride/Water 100 ml @ 100 mls/hr 1X ONCE IV Last administered on 08/06/19at 17:28; Start 08/06/19 at 14:45; Stop 08/06/19 at 15:44; Status DC Sodium Chloride 100 meq/Potassium Chloride 40 meq/ Magnesium Sulfate 15 meq/Calcium Gluconate 15 meq/ Multivitamins 10 ml/Chromium/ Copper/Manganese/ Seleni/Zn 0.5 ml/ Insulin Human Regular 35 unit/ Total Parenteral Nutrition/Amino Acids/Dextrose/ Fat Emulsion Intravenous 1,400 ml @ 58.333 mls/ hr TPN CONT IV Last administered on 08/07/19at 22:46; Start 08/07/19 at 22:00; Stop 08/08/19 at 21:59; Status DC Sodium Chloride 100 meq/Potassium Chloride 40 meq/ Magnesium Sulfate 20 meq/Calcium Gluconate 15 meq/ Multivitamins 10 ml/Chromium/ Copper/Manganese/ Seleni/Zn 0.5 ml/ Insulin Human Regular 35 unit/ Total Parenteral Nutrition/Amino Acids/Dextrose/ Fat Emulsion Intravenous 1,400 ml @ 58.333 mls/ hr TPN CONT IV Last administered on 08/08/19at 22:31; Start 08/08/19 at 22:00; Stop 08/09/19 at 21:59; Status DC Fentanyl Citrate (Fentanyl 2ml Vial) 50 mcg PRN Q2HR PRN IVP PAIN Last administered on 08/15/19at 13:32; Start 08/08/19 at 21:00; Stop 08/16/19 at 12:53; Status DC Fentanyl Citrate (Fentanyl 2ml Vial) 25 mcg PRN Q2HR PRN IVP PAIN; Start 08/08/19 at 21:00; Stop 08/16/19 at 12:54; Status DC Enoxaparin Sodium (Lovenox 100mg Syringe) 100 mg Q12HR SQ ; Start 08/09/19 at 21:00; Status UNV Amino Acids/ Glycerin/ Electrolytes 1,000 ml @ 75 mls/hr [id number] IV ; Start 08/08/19 at 21:15; Status UNV Sodium Chloride 1,000 ml @ 1,000 mls/hr Q1H PRN IV hypotension; Start 08/09/19 at 07:56; Stop 08/09/19 at 13:55; Status DC Albumin Human 200 ml @ 200 mls/hr 1X PRN PRN IV Hypotension Last administered on 08/09/19at 08:40; Start 08/09/19 at 08:00; Stop 08/09/19 at 13:59; Status DC Sodium Chloride 1,000 ml @ 400 mls/hr Q2H30M PRN IV PATENCY; Start 08/09/19 at 07:56; Stop 08/09/19 at 19:55; Status DC Info (PHARMACY MONITORING -- do not chart) 1 each PRN DAILY PRN MC SEE COMMENTS; Start 08/09/19 at 08:00; Status UNV Info (PHARMACY MONITORING -- do not chart) 1 each PRN DAILY PRN MC SEE COMMENTS; Start 08/09/19 at 08:00; Status UNV Daptomycin 430 mg/ Sodium Chloride 50 ml @ 100 mls/hr Q24H IV Last administered on 08/09/19at 12:35; Start 08/09/19 at 09:00; Stop 08/09/19 at 12:49; Status DC Sodium Chloride 100 meq/Potassium Chloride 40 meq/ Magnesium Sulfate 20 meq/Calcium Gluconate 15 meq/ Multivitamins 10 ml/Chromium/ Copper/Manganese/ Seleni/Zn 0.5 ml/ Insulin Human Regular 35 unit/ Total Parenteral Nutrition /Amino Acids/Dextrose/ Fat Emulsion Intravenous 1,400 ml @ 58.333 mls/ hr TPN CONT IV Last administered on 08/09/19at 21:26; Start 08/09/19 at 22:00; Stop 08/10/19 at 21:59; Status DC Daptomycin 430 mg/ Sodium Chloride 50 ml @ 100 mls/hr Q48H IV ; Start 08/11/19 at 09:00; Stop 08/10/19 at 11:55; Status DC Sodium Chloride 100 meq/Potassium Chloride 40 meq/ Magnesium Sulfate 20 meq/Calcium Gluconate 15 meq/ Multivitamins 10 ml/Chromium/ Copper/Manganese/ Seleni/Zn 0.5 ml/ Insulin Human Regular 35 unit/ Total Parenteral Nutrition/Amino Acids/Dextrose/ Fat Emulsion Intravenous 1,400 ml @ 58.333 mls/ hr TPN CONT IV Last administered on 08/10/19at 22:27; Start 08/10/19 at 22:00; Stop 08/11/19 at 21:59; Status DC Daptomycin 430 mg/ Sodium Chloride 50 ml @ 100 mls/hr Q24H IV Last administered on 08/12/19at 15:07; Start 08/10/19 at 13:00; Stop 08/13/19 at 13:15; Status DC Sodium Chloride 100 meq/Potassium Chloride 40 meq/ Magnesium Sulfate 20 meq/Calcium Gluconate 10 meq/ Multivitamins 10 ml/Chromium/ Copper/Manganese/ Seleni/Zn 0.5 ml/ Insulin Human Regular 35 unit/ Total Parenteral Nutrition/Amino Acids/Dextrose/ Fat Emulsion Intravenous 1,400 ml @ 58.333 mls/ hr TPN CONT IV Last administered on 08/12/19at 00:06; Start 08/11/19 at 22:00; Stop 08/12/19 at 21:59; Status DC Alteplase, Recombinant (Cathflo For Central Catheter Clearance) 1 mg 1X ONCE INT CAT Last administered on 08/12/19at 11:44; Start 08/12/19 at 10:45; Stop 08/12/19 at 10:46; Status DC Ondansetron HCl (Zofran) 4 mg PRN Q6HRS PRN IV NAUSEA/VOMITING; Start 08/15/19 at 07:00; Stop 08/16/19 at 06:59; Status DC Fentanyl Citrate (Fentanyl 2ml Vial) 25 mcg PRN Q5MIN PRN IV MILD PAIN 1-3; Start 08/15/19 at 07:00; Stop 08/16/19 at 06:59; Status DC Fentanyl Citrate (Fentanyl 2ml Vial) 50 mcg PRN Q5MIN PRN IV MODERATE TO SEVERE PAIN Last administered on 08/15/19at 10:17; Start 08/15/19 at 07:00; Stop 08/16/19 at 06:59; Status DC Ringer's Solution 1,000 ml @ 30 mls/hr Q24H IV ; Start 08/15/19 at 07:00; Stop 08/15/19 at 18:59; Status DC Lidocaine HCl (Xylocaine-Mpf 1% 2ml Vial) 2 ml PRN 1X PRN ID PRIOR TO IV START; Start 08/15/19 at 07:00; Stop 08/16/19 at 06:59; Status DC Prochlorperazine Edisylate (Compazine) 5 mg PACU PRN PRN IV NAUSEA, MRX1; Start 08/15/19 at 07:00; Stop 08/16/19 at 06:59; Status DC Sodium Acetate 50 meq/Potassium Acetate 55 meq/ Magnesium Sulfate 20 meq/Calcium Gluconate 10 meq/ Multivitamins 10 ml/Chromium/ Copper/Manganese/ Seleni/Zn 0.5 ml/ Insulin Human Regular 35 unit/ Total Parenteral Nutrition/Amino Acids/Dextrose/ Fat Emulsion Intravenous 1,400 ml @ 58.333 mls/ hr TPN CONT IV ; Start 08/12/19 at 22:00; Stop 08/12/19 at 14:15; Status DC Sodium Acetate 50 meq/Potassium Acetate 55 meq/ Magnesium Sulfate 20 meq/Calcium Gluconate 10 meq/ Multivitamins 10 ml/Chromium/ Copper/Manganese/ Seleni/Zn 0.5 ml/ Insulin Human Regular 35 unit/ Total Parenteral Nutrition/Amino Acids/Dextrose/ Fat Emulsion Intravenous 1,800 ml @ 75 mls/hr TPN CONT IV Last administered on 08/12/19at 22:38; Start 08/12/19 at 22:00; Stop 08/13/19 at 21:59; Status DC Sodium Chloride 1,000 ml @ 1,000 mls/hr Q1H PRN IV hypotension; Start 08/12/19 at 15:31; Stop 08/12/19 at 21:30; Status DC Diphenhydramine HCl (Benadryl) 25 mg 1X PRN PRN IV ITCHING; Start 08/12/19 at 15:45; Stop 08/13/19 at 15:44; Status DC Diphenhydramine HCl (Benadryl) 25 mg 1X PRN PRN IV ITCHING; Start 08/12/19 at 15:45; Stop 08/13/19 at 15:44; Status DC Sodium Chloride 1,000 ml @ 400 mls/hr Q2H30M PRN IV PATENCY; Start 08/12/19 at 15:31; Stop 08/13/19 at 03:30; Status DC Info (PHARMACY MONITORING -- do not chart) 1 each PRN DAILY PRN MC SEE COMMENTS; Start 08/12/19 at 15:45; Stop 09/13/19 at 14:14; Status DC Sodium Acetate 50 meq/Potassium Acetate 55 meq/ Magnesium Sulfate 20 meq/Calcium Gluconate 10 meq/ Multivitamins 10 ml/Chromium/ Copper/Manganese/ Seleni/Zn 0.5 ml/ Insulin Human Regular 35 unit/ Total Parenteral Nutrition/Amino Acids/Dextrose/ Fat Emulsion Intravenous 1,800 ml @ 75 mls/hr TPN CONT IV Last administered on 08/13/19at 22:03; Start 08/13/19 at 22:00; Stop 08/14/19 at 21:59; Status DC Daptomycin 430 mg/ Sodium Chloride 50 ml @ 100 mls/hr Q24H IV Last administered on 08/18/19at 13:00; Start 08/13/19 at 13:00; Stop 08/18/19 at 20:58; Status DC Heparin Sodium (Porcine) 1000 unit/Sodium Chloride 1,001 ml @ 1,001 mls/hr 1X ONCE IRR ; Start 08/15/19 at 06:00; Stop 08/15/19 at 06:59; Status DC Potassium Acetate 55 meq/Magnesium Sulfate 20 meq/ Calcium Gluconate 10 meq/ Multivitamins 10 ml/Chromium/ Copper/Manganese/ Seleni/Zn 0.5 ml/ Insulin Human Regular 35 unit/ Total Parenteral Nutrition/Amino Acids/Dextrose/ Fat Emulsion Intravenous 1,920 ml @ 80 mls/hr TPN CONT IV Last administered on 08/14/19at 22:10; Start 08/14/19 at 22:00; Stop 08/15/19 at 21:59; Status DC Dexamethasone Sodium Phosphate (Decadron) 4 mg STK-MED ONCE .ROUTE ; Start 08/15/19 at 10:56; Stop 08/15/19 at 10:57; Status DC Ondansetron HCl (Zofran) 4 mg STK-MED ONCE .ROUTE ; Start 08/15/19 at 10:56; Stop 08/15/19 at 10:57; Status DC Rocuronium [place] (Zemuron) 50 mg STK-MED ONCE .ROUTE ; Start 08/15/19 at 10:56; Stop 08/15/19 at 10:57; Status DC Fentanyl Citrate (Fentanyl 2ml Vial) 100 mcg STK-MED ONCE .ROUTE ; Start 08/15/19 at 10:56; Stop 08/15/19 at 10:57; Status DC Bupivacaine HCl/ Epinephrine Bitart (Sensorcain-Epi 0.5%-1:633332 Mpf) 30 ml STK-MED ONCE .ROUTE Last administered on 08/15/19at 12:01; Start 08/15/19 at 10:58; Stop 08/15/19 at 10:58; Status DC Cellulose (Surgicel Hemostat 2x14) 1 each STK-MED ONCE .ROUTE ; Start 08/15/19 at 10:58; Stop 08/15/19 at 10:59; Status DC Iohexol (Omnipaque 300 Mg/ml) 50 ml STK-MED ONCE .ROUTE ; Start 08/15/19 at 10:58; Stop 08/15/19 at 10:59; Status DC Cellulose (Surgicel Hemostat 4x8) 1 each STK-MED ONCE .ROUTE ; Start 08/15/19 at 10:58; Stop 08/15/19 at 10:59; Status DC Bisacodyl (Dulcolax Supp) 10 mg STK-MED ONCE .ROUTE ; Start 08/15/19 at 10:59; Stop 08/15/19 at 10:59; Status DC Heparin Sodium (Porcine) 1000 unit/Sodium Chloride 1,001 ml @ 1,001 mls/hr 1X ONCE IRR ; Start 08/15/19 at 12:00; Stop 08/15/19 at 12:59; Status DC Propofol 20 ml @ As Directed STK-MED ONCE IV ; Start 08/15/19 at 11:05; Stop 08/15/19 at 11:05; Status DC Sevoflurane (Ultane) 90 ml STK-MED ONCE IH ; Start 08/15/19 at 11:05; Stop 08/15/19 at 11:05; Status DC Sevoflurane (Ultane) 60 ml STK-MED ONCE IH ; Start 08/15/19 at 12:26; Stop 08/15/19 at 12:27; Status DC Propofol 20 ml @ As Directed STK-MED ONCE IV ; Start 08/15/19 at 12:26; Stop at 12:27; Status DC Phenylephrine HCl (PHENYLEPHRINE in 0.9% NACL PF) 1 mg STK-MED ONCE IV ; Start 08/15/19 at 12:34; Stop 08/15/19 at 12:34; Status DC Heparin Sodium (Porcine) (Heparin Sodium) 5,000 unit Q12HR SQ Last administered on 08/24/19at 20:57; Start 08/15/19 at 21:00; Stop 08/25/19 at 09:59; Status DC Sodium Chloride (Normal Saline Flush) 3 ml QSHIFT PRN IV AFTER MEDS AND BLOOD DRAWS; Start 08/15/19 at 13:45 Naloxone HCl (Narcan) 0.4 mg PRN Q2MIN PRN IV SEE INSTRUCTIONS Last administered on 09/24/19at 15:15; Start 08/15/19 at 13:45 Sodium Chloride 1,000 ml @ 25 mls/hr Q24H IV Last administered on 09/13/19at 13:37; Start 08/15/19 at 13:37; Stop 09/16/19 at 13:09; Status DC Naloxone HCl (Narcan) 0.4 mg PRN Q2MIN PRN IV SEE INSTRUCTIONS; Start 08/15/19 at 14:30; Status UNV Sodium Chloride 1,000 ml @ 25 mls/hr Q24H IV ; Start 08/15/19 at 14:30; Status UNV Hydromorphone HCl 30 ml @ 0 mls/hr CONT PRN PRN IV PER PROTOCOL Last administered on 08/20/19at 16:08; Start 08/15/19 at 14:30; Stop 08/22/19 at 08:55; Status DC Potassium Acetate 55 meq/Magnesium Sulfate 20 meq/ Calcium Gluconate 10 meq/ Multivitamins 10 ml/Chromium/ Copper/Manganese/ Seleni/Zn 0.5 ml/ Insulin Human Regular 35 unit/ Total Parenteral Nutrition/Amino Acids/Dextrose/ Fat Emulsion Intravenous 1,920 ml @ 80 mls/hr TPN CONT IV Last administered on 08/15/19at 22:01; Start 08/15/19 at 22:00; Stop 08/16/19 at 21:59; Status DC Bumetanide (Bumex) 2 mg [id number] IV Last administered on 08/19/19at 13:50; Start 08/16/19 at 14:00; Stop 08/20/19 at 14:10; Status DC Meropenem 1 gm/ Sodium Chloride 100 ml @ 200 mls/hr Q8HRS IV Last administered on 09/09/19at 05:53; Start 08/16/19 at 14:00; Stop 09/09/19 at 09:31; Status DC Potassium Acetate 55 meq/Magnesium Sulfate 20 meq/ Calcium Gluconate 10 meq/ Multivitamins 10 ml/Chromium/ Copper/Manganese/ Seleni/Zn 0.5 ml/ Insulin Human Regular 35 unit/ Total Parenteral Nutrition/Amino Acids/Dextrose/ Fat Emulsion Intravenous 1,920 ml @ 80 mls/hr TPN CONT IV Last administered on 08/16/19at 22:02; Start 08/16/19 at 22:00; Stop 08/17/19 at 21:59; Status DC Hydromorphone HCl (Dilaudid Standard [employer]) 12 mg STK-MED ONCE IV ; Start 08/15/19 at 14:35; Stop 08/16/19 at 13:53; Status DC Artificial Tears (Artificial Tears) 1 drop PRN Q15MIN PRN OU DRY EYE Last administered on 10/03/19at 03:38; Start 08/17/19 at 05:30 Hydromorphone HCl (Dilaudid Standard [employer]) 12 mg STK-MED ONCE IV ; Start 08/16/19 at 12:05; Stop 08/17/19 at 09:15; Status DC Potassium Acetate 65 meq/Magnesium Sulfate 20 meq/ Calcium Gluconate 10 meq/ Multivitamins 10 ml/Chromium/ Copper/Manganese/ Seleni/Zn 0.5 ml/ Insulin Human Regular 30 unit/ Total Parenteral Nutrition/Amino Acids/Dextrose/ Fat Emulsion Intravenous 1,920 ml @ 80 mls/hr TPN CONT IV Last administered on 08/17/19at 22:22; Start 08/17/19 at 22:00; Stop 08/18/19 at 21:59; Status DC Cyclobenzaprine HCl (Flexeril) 10 mg PRN Q6HRS PRN PO MUSCLE SPASMS; Start 08/18/19 at 10:45 Potassium Acetate 55 meq/Magnesium Sulfate 20 meq/ Calcium Gluconate 10 meq/ Multivitamins 10 ml/Chromium/ Copper/Manganese/ Seleni/Zn 0.5 ml/ Insulin Human Regular 30 unit/ Total Parenteral Nutrition/Amino Acids/Dextrose/ Fat Emulsion I ntravenous 1,920 ml @ 80 mls/hr TPN CONT IV Last administered on 08/19/19at 01:00; Start 08/18/19 at 22:00; Stop 08/19/19 at 21:59; Status DC Magnesium Sulfate 50 ml @ 25 mls/hr 1X ONCE IV Last administered on 08/18/19at 17:18; Start 08/18/19 at 12:45; Stop 08/18/19 at 14:44; Status DC Potassium Chloride/Water 100 ml @ 100 mls/hr 1X ONCE IV Last administered on 08/19/19at 11:27; Start 08/19/19 at 12:00; Stop 08/19/19 at 12:59; Status DC Hydromorphone HCl (Dilaudid Standard [employer]) 12 mg STK-MED ONCE IV ; Start 08/17/19 at 10:50; Stop 08/19/19 at 11:02; Status DC Hydromorphone HCl (Dilaudid Standard [employer]) 12 mg STK-MED ONCE IV ; Start 08/18/19 at 13:47; Stop 08/19/19 at 11:03; Status DC Potassium Acetate 30 meq/Magnesium Sulfate 20 meq/ Calcium Gluconate 10 meq/ Multivitamins 10 ml/Chromium/ Copper/Manganese/ Seleni/Zn 0.5 ml/ Insulin Human Regular 30 unit/ Potassium Chloride 30 meq/ Total Parenteral Nutrition/Amino Acids/Dextrose/ Fat Emulsion Intravenous 1,920 ml @ 80 mls/hr TPN CONT IV Last administered on 08/19/19at 22:34; Start 08/19/19 at 22:00; Stop 08/20/19 at 21:59; Status DC Potassium Chloride/Water 100 ml @ 100 mls/hr Q1H IV Last administered on 08/20/19at 13:05; Start 08/20/19 at 07:00; Stop 08/20/19 at 10:59; Status DC Magnesium Sulfate 50 ml @ 25 mls/hr 1X ONCE IV Last administered on 08/20/19at 10:34; Start 08/20/19 at 10:30; Stop 08/20/19 at 12:29; Status DC Potassium Chloride 75 meq/ Magnesium Sulfate 20 meq/Calcium Gluconate 10 meq/ Multivitamins 10 ml/Chromium/ Copper/Manganese/ Seleni/Zn 0.5 ml/ Insulin Human Regular 30 unit/ Total Parenteral Nutrition/Amino Acids/Dextrose/ Fat Emulsion Intravenous 1,920 ml @ 80 mls/hr TPN CONT IV Last administered on 08/20/19at 21:51; Start 08/20/19 at 22:00; Stop 08/21/19 at 22:00; Status DC Potassium Chloride 75 meq/ Magnesium Sulfate 20 meq/Calcium Gluconate 10 meq/ Multivitamins 10 ml/Chromium/ Copper/Manganese/ Seleni/Zn 0.5 ml/ Insulin Human Regular 25 unit/ Total Parenteral Nutrition/Amino Acids/Dextrose/ Fat Emulsion Intravenous 1,920 ml @ 80 mls/hr TPN CONT IV Last administered on 08/21/19at 22:04; Start 08/21/19 at 22:00; Stop 08/22/19 at 21:59; Status DC Hydromorphone HCl (Dilaudid) 0.4 mg PRN Q4HRS PRN IVP PAIN Last administered on 08/22/19at 10:57; Start 08/22/19 at 09:00; Stop 08/22/19 at 18:59; Status DC Micafungin Sodium 100 mg/Dextrose 100 ml @ 100 mls/hr Q24H IV Last administered on 09/13/19at 12:17; Start 08/22/19 at 11:00; Stop 09/14/19 at 09:59; Status DC Daptomycin 485 mg/ Sodium Chloride 50 ml @ 100 mls/hr Q24H IV Last administered on 08/29/19at 13:10; Start 08/22/19 at 11:00; Stop 08/30/19 at 07:44; Status DC Potassium Chloride 75 meq/ Magnesium Sulfate 15 meq/Calcium Gluconate 8 meq/ Multivitamins 10 ml/Chromium/ Copper/Manganese/ Seleni/Zn 0.5 ml/ Insulin Human Regular 25 unit/ Total Parenteral Nutrition/Amino Acids/Dextrose/ Fat Emulsion Intravenous 1,920 ml @ 80 mls/hr TPN CONT IV Last administered on 08/22/19at 23:08; Start 08/22/19 at 22:00; Stop 08/23/19 at 21:59; Status DC Haloperidol Lactate (Haldol Inj) 3 mg 1X ONCE IVP Last administered on 08/22/19at 14:37; Start 08/22/19 at 14:30; Stop 08/22/19 at 14:31; Status DC Hydromorphone HCl (Dilaudid) 1 mg PRN Q4HRS PRN IVP PAIN Last administered on 09/05/19at 06:25; Start 08/22/19 at 19:00; Stop 09/05/19 at 17:10; Status DC Potassium Chloride 75 meq/ Magnesium Sulfate 15 meq/Calcium Gluconate 8 meq/ Multivitamins 10 ml/Chromium/ Copper/Manganese/ Seleni/Zn 0.5 ml/ Insulin Human Regular 20 unit/ Total Parenteral Nutrition/Amino Acids/Dextrose/ Fat Emulsion Intravenous 1,920 ml @ 80 mls/hr TPN CONT IV Last administered on 08/23/19at 22:10; Start 08/23/19 at 22:00; Stop 08/24/19 at 21:59; Status DC Lidocaine HCl (Buffered Lidocaine 1%) 3 ml STK-MED ONCE .ROUTE ; Start 08/24/19 at 11:31; Stop 08/24/19 at 11:31; Status DC Lidocaine HCl (Buffered Lidocaine 1%) 3 ml STK-MED ONCE .ROUTE ; Start 08/24/19 at 12:28; Stop 08/24/19 at 12:29; Status DC Lidocaine HCl (Buffered Lidocaine 1%) 6 ml 1X ONCE INJ Last administered on 08/24/19at 12:53; Start 08/24/19 at 12:45; Stop 08/24/19 at 12:46; Status DC Potassium Chloride 75 meq/ Magnesium Sulfate 15 meq/Calcium Gluconate 8 meq/ Multivitamins 10 ml/Chromium/ Copper/Manganese/ Seleni/Zn 0.5 ml/ Insulin Human Regular 20 unit/ Total Parenteral Nutrition/Amino Acids/Dextrose/ Fat Emulsion Intravenous 1,920 ml @ 80 mls/hr TPN CONT IV Last administered on 08/24/19at 22:00; Start 08/24/19 at 22:00; Stop 08/25/19 at 21:59; Status DC Potassium Chloride 75 meq/ Magnesium Sulfate 15 meq/Calcium Gluconate 8 meq/ Multivitamins 10 ml/Chromium/ Copper/Manganese/ Seleni/Zn 0.5 ml/ Insulin Human Regular 15 unit/ Total Parenteral Nutrition/Amino Acids/Dextrose/ Fat Emulsion Intravenous 1,920 ml @ 80 mls/hr TPN CONT IV Last administered on 08/25/19at 22:28; Start 08/25/19 at 22:00; Stop 08/26/19 at 21:59; Status DC Vecuronium [place] (Norcuron Bolus) 6 mg PRN Q6HRS PRN IV VENT ASYNCHRONY; Start 08/25/19 at 19:15; Stop 08/25/19 at 19:35; Status DC Bumetanide (Bumex) 2 mg 1X ONCE IV Last administered on 08/25/19at 22:09; Start 08/25/19 at 19:45; Stop 08/25/19 at 19:46; Status DC Lidocaine HCl (Buffered Lidocaine 1%) 3 ml STK-MED ONCE .ROUTE ; Start 08/26/19 at 07:59; Stop 08/26/19 at 07:59; Status DC Midazolam HCl (Versed) 5 mg STK-MED ONCE .ROUTE ; Start 08/26/19 at 08:36; Stop 08/26/19 at 08:36; Status DC Fentanyl Citrate (Fentanyl 5ml Vial) 250 mcg STK-MED ONCE .ROUTE ; Start 08/26/19 at 08:36; Stop 08/26/19 at 08:37; Status DC Lidocaine HCl (Buffered Lidocaine 1%) 3 ml 1X ONCE IJ Last administered on 08/26/19at 09:30; Start 08/26/19 at 09:15; Stop 08/26/19 at 09:16; Status DC Midazolam HCl (Versed) 5 mg 1X ONCE IV Last administered on 08/26/19at 09:30; Start 08/26/19 at 09:15; Stop 08/26/19 at 09:16; Status DC Fentanyl Citrate (Fentanyl 5ml Vial) 250 mcg 1X ONCE IV Last administered on 08/26/19at 09:30; Start 08/26/19 at 09:15; Stop 08/26/19 at 09:16; Status DC Bumetanide (Bumex) 2 mg DAILY IV Last administered on 09/05/19at 08:07; Start 08/26/19 at 10:00; Stop 09/05/19 at 17:15; Status DC Potassium Chloride 75 meq/ Magnesium Sulfate 15 meq/ Multivitamins 10 ml/Chromium/ Copper/Manganese/ Seleni/Zn 0.5 ml/ Insulin Human Regular 15 unit/ Total Parenteral Nutrition/Amino Acids/Dextrose/ Fat Emulsion Intravenous 1,920 ml @ 80 mls/hr TPN CONT IV Last administered on 08/26/19at 21:59; Start 08/26/19 at 22:00; Stop 08/27/19 at 21:59; Status DC Metoclopramide HCl (Reglan Vial) 10 mg PRN Q3HRS PRN IVP NAUSEA/VOMITING-3rd choice Last administered on 09/01/19at 04:25; Start 08/27/19 at 16:45 Potassium Chloride 75 meq/ Magnesium Sulfate 15 meq/ Multivitamins 10 ml/Chromium/ Copper/Manganese/ Seleni/Zn 0.5 ml/ Insulin Human Regular 15 unit/ Total Parenteral Nutrition/Amino Acids/Dextrose/ Fat Emulsion Intravenous 1,920 ml @ 80 mls/hr TPN CONT IV Last administered on 08/27/19at 22:41; Start 08/27/19 at 22:00; Stop 08/28/19 at 21:59; Status DC Magnesium Sulfate 50 ml @ 25 mls/hr 1X ONCE IV Last administered on 08/28/19at 10:44; Start 08/28/19 at 09:00; Stop 08/28/19 at 10:59; Status DC Potassium Chloride/Water 100 ml @ 100 mls/hr 1X ONCE IV Last administered on 08/28/19at 09:37; Start 08/28/19 at 09:00; Stop 08/28/19 at 09:59; Status DC Duloxetine HCl (Cymbalta) 30 mg DAILY PO Last administered on 08/29/19at 09:48; Start 08/28/19 at 14:00; Stop 08/31/19 at 10:25; Status DC Potassium Chloride 80 meq/ Magnesium Sulfate 20 meq/ Multivitamins 10 ml/Chromium/ Copper/Manganese/ Seleni/Zn 0.5 ml/ Insulin Human Regular 15 unit/ Total Parenteral Nutrition/Amino Acids/Dextrose/ Fat Emulsion Intravenous 1,920 ml @ 80 mls/hr TPN CONT IV Last administered on 08/28/19at 21:42; Start 08/28/19 at 22:00; Stop 08/29/19 at 21:59; Status DC Potassium Chloride 80 meq/ Magnesium Sulfate 20 meq/ Multivitamins 10 ml/Chromium/ Copper/Manganese/ Seleni/Zn 0.5 ml/ Insulin Human Regular 15 unit/ Total Parenteral Nutrition/Amino Acids/Dextrose/ Fat Emulsion Intravenous 1,920 ml @ 80 mls/hr TPN CONT IV Last administered on 08/29/19at 22:20; Start 08/29/19 at 22:00; Stop 08/30/19 at 21:59; Status DC Lidocaine HCl (Buffered Lidocaine 1%) 3 ml STK-MED ONCE .ROUTE ; Start 08/30/19 at 09:54; Stop 08/30/19 at 09:55; Status DC Hydromorphone HCl (Dilaudid Standard [employer]) 12 mg STK-MED ONCE IV ; Start 08/19/19 at 15:50; Stop 08/30/19 at 11:24; Status DC Potassium Chloride 80 meq/ Magnesium Sulfate 20 meq/ Multivitamins 10 ml/Chromium/ Copper/Manganese/ Seleni/Zn 0.5 ml/ Insulin Human Regular 15 unit/ Total Parenteral Nutrition/Amino Acids/Dextrose/ Fat Emulsion Intravenous 1,920 ml @ 80 mls/hr TPN CONT IV Last administered on 08/30/19at 21:40; Start 08/30/19 at 22:00; Stop 08/31/19 at 21:59; Status DC Lidocaine HCl (Buffered Lidocaine 1%) 6 ml 1X ONCE INJ Last administered on 08/30/19at 14:15; Start 08/30/19 at 14:15; Stop 08/30/19 at 14:16; Status DC Potassium Chloride 80 meq/ Magnesium Sulfate 20 meq/ Multivitamins 10 ml/Chromium/ Copper/Manganese/ Seleni/Zn 1 ml/ Insulin Human Regular 15 unit/ Total Parenteral Nutrition/Amino Acids/Dextrose/ Fat Emulsion Intravenous 1,920 ml @ 80 mls/hr TPN CONT IV Last administered on 08/31/19at 22:04; Start 08/31/19 at 22:00; Stop 09/01/19 at 21:59; Status DC Potassium Chloride/Water 100 ml @ 100 mls/hr 1X ONCE IV Last administered on 09/01/19at 11:34; Start 09/01/19 at 11:00; Stop 09/01/19 at 11:59; Status DC Potassium Chloride 90 meq/ Magnesium Sulfate 20 meq/ Multivitamins 10 ml/Chromium/ Copper/Manganese/ Seleni/Zn 1 ml/ Insulin Human Regular 15 unit/ Total Parenteral Nutrition/Amino Acids/Dextrose/ Fat Emulsion Intravenous 1,920 ml @ 80 mls/hr TPN CONT IV Last administered on 09/01/19at 22:57; Start 09/01/19 at 22:00; Stop 09/02/19 at 21:59; Status DC Potassium Chloride 90 meq/ Magnesium Sulfate 20 meq/ Multivitamins 10 ml/Chromium/ Copper/Manganese/ Seleni/Zn 1 ml/ Insulin Human Regular 15 unit/ Total Parenteral Nutrition/Amino Acids/Dextrose/ Fat Emulsion Intravenous 1,920 ml @ 80 mls/hr TPN CONT IV Last administered on 09/02/19at 22:48; Start 09/02/19 at 22:00; Stop 09/03/19 at 21:59; Status DC Potassium Chloride 90 meq/ Magnesium Sulfate 20 meq/ Multivitamins 10 ml/Chromium/ Copper/Manganese/ Seleni/Zn 1 ml/ Insulin Human Regular 15 unit/ Total Parenteral Nutrition/Amino Acids/Dextrose/ Fat Emulsion Intravenous 1,890 ml @ 78.75 mls/ hr TPN CONT IV Last administered on 09/03/19at 22:15; Start 09/03/19 at 22:00; Stop 09/04/19 at 21:59; Status DC Linezolid/Dextrose 300 ml @ 300 mls/hr Q12HR IV Last administered on 09/06/19at 21:08; Start 09/04/19 at 09:00; Stop 09/07/19 at 08:11; Status DC Daptomycin 450 mg/ Sodium Chloride 50 ml @ 100 mls/hr Q24H IV Last adm inistered on 09/07/19at 09:25; Start 09/04/19 at 09:00; Stop 09/08/19 at 08:30; Status DC Potassium Chloride 90 meq/ Magnesium Sulfate 20 meq/ Multivitamins 10 ml/Chromium/ Copper/Manganese/ Seleni/Zn 1 ml/ Insulin Human Regular 15 unit/ Total Parenteral Nutrition/Amino Acids/Dextrose/ Fat Emulsion Intravenous 1,890 ml @ 78.75 mls/ hr TPN CONT IV Last administered on 09/04/19at 21:34; Start 09/04/19 at 22:00; Stop 09/05/19 at 21:59; Status DC Lorazepam (Ativan Inj) 2 mg STK-MED ONCE .ROUTE ; Start 09/04/19 at 14:58; Stop 09/04/19 at 14:58; Status DC Metoprolol Tartrate (Lopressor Vial) 5 mg 1X ONCE IVP Last administered on 08/18 11/06at 15:31; Start 09/04/19 at 15:15; Stop 09/04/19 at 15:16; Status DC Lorazepam (Ativan Inj) 2 mg 1X ONCE IVP Last administered on 09/04/19at 15:30; Start 09/04/19 at 15:15; Stop 09/04/19 at 15:16; Status DC Enoxaparin Sodium (Lovenox 40mg Syringe) 40 mg Q24H SQ Last administered on 09/23/19at 17:44; Start 09/04/19 at 17:00; Stop 09/25/19 at 06:50; Status DC Lorazepam (Ativan Inj) 1 mg PRN Q4HRS PRN IVP ANXIETY / AGITATION MILD-MOD Last administered on 09/18/19at 15:55; Start 09/04/19 at 19:15; Stop 09/20/19 at 11:45; Status DC Lorazepam (Ativan Inj) 2 mg PRN Q4HRS PRN IVP ANXIETY / AGITATION SEVERE Last administered on 09/19/19at 07:55; Start 09/04/19 at 19:15; Stop 09/20/19 at 11:45; Status DC Fentanyl Citrate (Fentanyl 2ml Vial) 50 mcg PRN Q4HRS PRN IVP SEVERE PAIN Last administered on 10/01/19at 05:15; Start 09/05/19 at 13:15; Stop 10/02/19 at 09:29; Status DC Fentanyl Citrate (Fentanyl 2ml Vial) 25 mcg PRN Q4HRS PRN IVP MODERATE PAIN Last administered on 10/01/19at 00:27; Start 09/05/19 at 13:15; Stop 10/02/19 at 09:30; Status DC Potassium Chloride 90 meq/ Magnesium Sulfate 20 meq/ Multivitamins 10 ml/Chromium/ Copper/Manganese/ Seleni/Zn 1 ml/ Insulin Human Regular 15 unit/ Total Parenteral Nutrition/Amino Acids/Dextrose/ Fat Emulsion Intravenous 1,890 ml @ 78.75 mls/ hr TPN CONT IV Last administered on 09/05/19at 22:18; Start 09/05/19 at 22:00; Stop 09/06/19 at 21:59; Status DC Furosemide (Lasix) 40 mg 1X ONCE IVP Last administered on 09/05/19at 21:51; Start 09/05/19 at 21:45; Stop 09/05/19 at 21:48; Status DC Albumin Human 100 ml @ 100 mls/hr 1X PRN PRN IV SEE COMMENTS; Start 09/06/19 at 01:30 Furosemide (Lasix) 40 mg [id number] IVP Last administered on 09/21/19at 08:04; Start 09/06/19 at 14:00; Stop 09/21/19 at 13:07; Status DC Potassium Chloride 90 meq/ Magnesium Sulfate 20 meq/ Multivitamins 10 ml/Chromium/ Copper/Manganese/ Seleni/Zn 1 ml/ Insulin Human Regular 15 unit/ Total Parenteral Nutrition/Amino Acids/Dextrose/ Fat Emulsion Intravenous 1,800 ml @ 75 mls/hr TPN CONT IV Last administered on 09/06/19at 22:31; Start 09/06/19 at 22:00; Stop 09/07/19 at 21:59; Status DC Potassium Chloride 90 meq/ Magnesium Sulfate 20 meq/ Multivitamins 10 ml/Chromium/ Copper/Manganese/ Seleni/Zn 1 ml/ Insulin Human Regular 15 unit/ Total Parenteral Nutrition/Amino Acids/Dextrose/ Fat Emulsion Intravenous 1,800 ml @ 75 mls/hr TPN CONT IV Last administered on 09/07/19at 22:28; Start 09/07/19 at 22:00; Stop 09/08/19 at 21:59; Status DC Potassium Chloride 110 meq/ Magnesium Sulfate 20 meq/ Multivitamins 10 ml/ Chromium/ Copper/Manganese/ Seleni/Zn 1 ml/ Insulin Human Regular 15 unit/ Total Parenteral Nutrition/Amino Acids/Dextrose/ Fat Emulsion Intravenous 1,800 ml @ 75 mls/hr TPN CONT IV Last administered on 09/08/19at 22:01; Start 09/08/19 at 22:00; Stop 09/09/19 at 21:59; Status DC Saliva Substitute (Biotene Moisturizing Mouth) 2 spray PRN Q15MIN PRN PO DRY MOUTH; Start 09/08/19 at 11:00 Potassium Chloride 110 meq/ Magnesium Sulfate 20 meq/ Multivitamins 10 ml/Chromium/ Copper/Manganese/ Seleni/Zn 1 ml/ Insulin Human Regular 15 unit/ Total Parenteral Nutrition/Amino Acids/Dextrose/ Fat Emulsion Intravenous 1,800 ml @ 75 mls/hr TPN CONT IV Last administered on 09/09/19at 22:21; Start 09/09/19 at 22:00; Stop 09/10/19 at 21:59; Status DC Potassium Chloride 110 meq/ Magnesium Sulfate 20 meq/ Multivitamins 10 ml/Chromium/ Copper/Manganese/ Seleni/Zn 1 ml/ Insulin Human Regular 15 unit/ Total Parenteral Nutrition/Amino Acids/Dextrose/ Fat Emulsion Intravenous 1,800 ml @ 75 mls/hr TPN CONT IV Last administered on 09/10/19at 22:04; Start 09/10/19 at 22:00; Stop 09/11/19 at 21:59; Status DC Potassium Chloride 110 meq/ Magnesium Sulfate 20 meq/ Multivitamins 10 ml/Chromium/ Copper/Manganese/ Seleni/Zn 1 ml/ Insulin Human Regular 15 unit/ Total Parenteral Nutrition/Amino Acids/Dextrose/ Fat Emulsion Intravenous 1,800 ml @ 75 mls/hr TPN CONT IV Last administered on 09/11/19at 22:48; Start 09/11/19 at 22:00; Stop 09/12/19 at 21:59; Status DC Potassium Chloride 70 meq/ Magnesium Sulfate 20 meq/ Multivitamins 10 ml/ Chromium/ Copper/Manganese/ Seleni/Zn 1 ml/ Insulin Human Regular 15 unit/ Total Parenteral Nutrition/Amino Acids/Dextrose/ Fat Emulsion Intravenous 1,800 ml @ 75 mls/hr TPN CONT IV Last administered on 09/12/19at 21:39; Start 09/12/19 at 22:00; Stop 09/13/19 at 21:59; Status DC Meropenem 500 mg/ Sodium Chloride 50 ml @ 100 mls/hr Q6HRS IV Last administered on 09/14/19at 06:02; Start 09/12/19 at 18:00; Stop 09/14/19 at 09:59; Status DC Barium Sulfate (Varibar Thin Liquid Apple) 148 gm 1X ONCE PO ; Start 09/13/19 at 11:45; Stop 09/13/19 at 11:49; Status DC Potassium Chloride 70 meq/ Magnesium Sulfate 20 meq/ Multivitamins 10 m l/Chromium/ Copper/Manganese/ Seleni/Zn 1 ml/ Insulin Human Regular 15 unit/ Total Parenteral Nutrition/Amino Acids/Dextrose/ Fat Emulsion Intravenous 1,800 ml @ 75 mls/hr TPN CONT IV Last administered on 09/13/19at 22:27; Start 09/13/19 at 22:00; Stop 09/14/19 at 21:59; Status DC Piperacillin Sod/ Tazobactam Sod 3.375 gm/Sodium Chloride 50 ml @ 100 mls/hr Q6HRS IV Last administered on 09/22/19at 06:10; Start 09/14/19 at 12:00; Stop 09/22/19 at 07:26; Status DC Potassium Chloride 70 meq/ Magnesium Sulfate 20 meq/ Multivitamins 10 ml/Chromium/ Copper/Manganese/ Seleni/Zn 1 ml/ Insulin Human Regular 15 unit/ Total Parenteral Nutrition/Amino Acids/Dextrose/ Fat Emulsion Intravenous 1,800 ml @ 75 mls/hr TPN CONT IV Last administered on 09/14/19at 22:03; Start 09/14/19 at 22:00; Stop 09/15/19 at 21:59; Status DC Potassium Chloride 70 meq/ Magnesium Sulfate 20 meq/ Multivitamins 10 m l/Chromium/ Copper/Manganese/ Seleni/Zn 1 ml/ Insulin Human Regular 15 unit/ Total Parenteral Nutrition/Amino Acids/Dextrose/ Fat Emulsion Intravenous 1,800 ml @ 75 mls/hr TPN CONT IV Last administered on 09/15/19at 22:33; Start 09/15/19 at 22:00; Stop 09/16/19 at 21:59; Status DC Potassium Chloride 70 meq/ Magnesium Sulfate 20 meq/ Multivitamins 10 ml/Chromium/ Copper/Manganese/ Seleni/Zn 1 ml/ Insulin Human Regular 15 unit/ Total Parenteral Nutrition/Amino Acids/Dextrose/ Fat Emulsion Intravenous 1,800 ml @ 75 mls/hr TPN CONT IV Last administered on 09/16/19at 23:13; Start 09/16/19 at 22:00; Stop 09/17/19 at 21:59; Status DC Potassium Chloride 80 meq/ Magnesium Sulfate 20 meq/ Multivitamins 10 ml/Chromium/ Copper/Manganese/ Seleni/Zn 1 ml/ Insulin Human Regular 15 unit/ Total Parenteral Nutrition/Amino Acids/Dextrose/ Fat Emulsion Intravenous 1,800 ml @ 75 mls/hr TPN CONT IV Last administered on 09/17/19at 22:30; Start 09/17/19 at 22:00; Stop 09/18/19 at 21:59; Status DC Potassium Chloride 80 meq/ Magnesium Sulfate 20 meq/ Multivitamins 10 ml/Chromium/ Copper/Manganese/ Seleni/Zn 1 ml/ Insulin Human Regular 15 unit/ Total Parenteral Nutrition/Amino Acids/Dextrose/ Fat Emulsion Intravenous 1,800 ml @ 75 mls/hr TPN CONT IV Last administered on 09/18/19at 21:54; Start 09/18/19 at 22:00; Stop 09/19/19 at 21:59; Status DC Potassium Chloride/Water 100 ml @ 100 mls/hr 1X ONCE IV Last administered on 09/19/19at 10:15; Start 09/19/19 at 10:00; Stop 09/19/19 at 10:59; Status DC Potassium Chloride 90 meq/ Magnesium Sulfate 20 meq/ Multivitamins 10 ml/Chromium/ Copper/Manganese/ Seleni/Zn 1 ml/ Insulin Human Regular 20 unit/ Total Parenteral Nutrition/Amino Acids/Dextrose/ Fat Emulsion Intravenous 1,800 ml @ 75 mls/hr TPN CONT IV Last administered on 09/19/19at 22:28; Start 09/19/19 at 22:00; Stop 09/20/19 at 21:59; Status DC Potassium Chloride 90 meq/ Magnesium Sulfate 20 meq/ Multivitamins 10 ml/Chromium/ Copper/Manganese/ Seleni/Zn 1 ml/ Insulin Human Regular 20 unit/ Total Parenteral Nutrition/Amino Acids/Dextrose/ Fat Emulsion Intravenous 1,800 ml @ 75 mls/hr TPN CONT IV Last administered on 09/20/19at 22:08; Start 09/20/19 at 22:00; Stop 09/21/19 at 21:59; Status DC Lorazepam (Ativan Inj) 0.25 mg PRN Q4HRS PRN IVP ANXIETY / AGITATION Last administered on 10/01/19at 02:25; Start 09/21/19 at 07:30 Potassium Chloride 90 meq/ Magnesium Sulfate 20 meq/ Multivitamins 10 ml/Chromium/ Copper/Manganese/ Seleni/Zn 1 ml/ Insulin Human Regular 20 unit/ Total Parenteral Nutrition/Amino Acids/Dextrose/ Fat Emulsion Intravenous 1,800 ml @ 75 mls/hr TPN CONT IV Last administered on 09/21/19at 23:13; Start 09/21/19 at 22:00; Stop 09/22/19 at 21:59; Status DC Furosemide (Lasix) 40 mg DAILY IVP Last administered on 09/23/19at 11:14; Start 09/21/19 at 13:30; Stop 09/25/19 at 09:12; Status DC Fluoxetine HCl (PROzac) 20 mg QHS PEG Last administered on 10/10/19at 21:42; Start 09/22/19 at 21:00 Fentanyl (Duragesic 50mcg/ Hr Patch) 1 patch Q72H TD Last administered on 09/22/19at 21:22; Start 09/22/19 at 21:00; Stop 10/01/19 at 12:00; Status DC Potassium Chloride 40 meq/ Potassium Acetate 60 meq/Magnesium Sulfate 10 meq/ Multivitamins 10 ml/Chromium/ Copper/Manganese/ Seleni/Zn 1 ml/ Insulin Human Regular 20 unit/ Total Parenteral Nutrition/Amino Acids/Dextrose/ Fat Emulsion Intravenous 1,800 ml @ 75 mls/hr TPN CONT IV Last administered on 09/23/19at 00:03; Start 09/22/19 at 22:00; Stop 09/23/19 at 21:59; Status DC Potassium Acetate 80 meq/Magnesium Sulfate 5 meq/ Multivitamins 10 ml/Chromium/ Copper/Manganese/ Seleni/Zn 1 ml/ Insulin Human Regular 20 unit/ Total Parenteral Nutrition/Amino Acids/Dextrose/ Fat Emulsion Intravenous 1,920 ml @ 80 mls/hr TPN CONT IV Last administered on 09/23/19at 21:59; Start 09/23/19 at 22:00; Stop 09/24/19 at 21:59; Status DC Potassium Acetate 60 meq/Magnesium Sulfate 5 meq/ Multivitamins 10 ml/Chromium/ Copper/Manganese/ Seleni/Zn 1 ml/ Insulin Human Regular 30 unit/ Total Parenteral Nutrition/Amino Acids/Dextrose/ Fat Emulsion Intravenous 1,920 ml @ 80 mls/hr TPN CONT IV Last administered on 09/24/19at 21:54; Start 09/24/19 at 22:00; Stop 09/25/19 at 21:59; Status DC Norepinephrine Bitartrate 8 mg/ Dextrose 258 ml @ 13.332 mls/ hr CONT PRN IV PER PROTOCOL Last administered on 09/25/19at 21:46; Start 09/25/19 at 06:30 Albumin Human 500 ml @ 125 mls/hr 1X ONCE IV Last administered on 09/25/19at 08:10; Start 09/25/19 at 08:15; Stop 09/25/19 at 12:14; Status DC Potassium Acetate 40 meq/Magnesium Sulfate 5 meq/ Multivitamins 10 ml/Chromium/ Copper/Manganese/ Seleni/Zn 1 ml/ Insulin Human Regular 30 unit/ Total Janett ral Nutrition/Amino Acids/Dextrose/ Fat Emulsion Intravenous 1,920 ml @ 80 mls/hr TPN CONT IV Last administered on 09/25/19at 22:23; Start 09/25/19 at 22:00; Stop 09/26/19 at 21:59; Status DC Meropenem 1 gm/ Sodium Chloride 100 ml @ 200 mls/hr Q8HRS IV ; Start 09/25/19 at 14:00; Status Cancel Meropenem 1 gm/ Sodium Chloride 100 ml @ 200 mls/hr Q8HRS IV Last administered on 09/25/19at 11:04; Start 09/25/19 at 10:00; Stop 09/25/19 at 13:00; Status DC Meropenem 1 gm/ Sodium Chloride 100 ml @ 200 mls/hr Q12HR IV Last administered on 10/11/19at 08:58; Start 09/25/19 at 21:00 Sodium Chloride 1,000 ml @ 1,000 mls/hr 1X ONCE IV Last administered on 09/25/19at 11:06; Start 09/25/19 at 10:45; Stop 09/25/19 at 11:44; Status DC Micafungin Sodium 100 mg/Dextrose 100 ml @ 100 mls/hr Q24H IV Last administered on 10/10/19at 11:07; Start 09/25/19 at 11:00 Daptomycin 410 mg/ Sodium Chloride 50 ml @ 100 mls/hr Q24H IV Last administered on 09/27/19at 13:33; Start 09/25/19 at 14:00; Stop 09/28/19 at 08:30; Status DC Midazolam HCl (Versed) 2 mg STK-MED ONCE .ROUTE ; Start 09/25/19 at 14:47; Stop 09/25/19 at 14:48; Status DC Fentanyl Citrate (Fentanyl 2ml Vial) 100 mcg STK-MED ONCE .ROUTE ; Start 09/25/19 at 14:47; Stop 09/25/19 at 14:48; Status DC Flumazenil (Romazicon) 0.5 mg STK-MED ONCE IV ; Start 09/25/19 at 14:48; Stop 09/25/19 at 14:48; Status DC Naloxone HCl (Narcan) 0.4 mg STK-MED ONCE .ROUTE ; Start 09/25/19 at 14:48; Stop 09/25/19 at 14:48; Status DC Lidocaine HCl (Lidocaine 1% 20ml Vial) 20 ml STK-MED ONCE .ROUTE ; Start 09/25/19 at 14:48; Stop 09/25/19 at 14:48; Status DC Midazolam HCl (Versed) 2 mg 1X ONCE IV Last administered on 09/25/19at 15:28; S tart 09/25/19 at 15:00; Stop 09/25/19 at 15:01; Status DC Fentanyl Citrate (Fentanyl 2ml Vial) 100 mcg 1X ONCE IV Last administered on 09/25/19at 15:28; Start 09/25/19 at 15:00; Stop 09/25/19 at 15:01; Status DC Lidocaine HCl (Lidocaine 1% 20ml Vial) 20 ml 1X ONCE INJ Last administered on 09/25/19at 15:30; Start 09/25/19 at 15:00; Stop 09/25/19 at 15:01; Status DC Sodium Chloride 1,000 ml @ 100 mls/hr Q10H IV Last administered on 10/04/19at 07:30; Start 09/25/19 at 20:00; Stop 10/04/19 at 11:26; Status DC Sodium Bicarbonate (Sodium Bicarb Adult 8.4% Syr) 50 meq 1X ONCE IV Last administered on 09/25/19at 21:47; Start 09/25/19 at 22:00; Stop 09/25/19 at 22:01; Status DC Potassium Acetate 40 meq/Magnesium Sulfate 5 meq/ Multivitamins 10 ml/Chromium/ Copper/Manganese/ Seleni/Zn 1 ml/ Insulin Human Regular 30 unit/ Total Parenteral Nutrition/Amino Acids/Dextrose/ Fat Emulsion Intravenous 1,920 ml @ 80 mls/hr TPN CONT IV Last administered on 09/26/19at 22:28; Start 09/26/19 at 22:00; Stop 09/27/19 at 21:59; Status DC Sodium Chloride 500 ml @ 500 mls/hr 1X ONCE IV Last administered on 09/27/19at 06:39; Start 09/27/19 at 06:45; Stop 09/27/19 at 07:44; Status DC Potassium Acetate 40 meq/Magnesium Sulfate 5 meq/ Multivitamins 10 ml/Chromium/ Copper/Manganese/ Seleni/Zn 1 ml/ Insulin Human Regular 30 unit/ Total Parenteral Nutrition/Amino Acids/Dextrose/ Fat Emulsion Intravenous 1,920 ml @ 80 mls/hr TPN CONT IV Last administered on 09/27/19at 22:03; Start 09/27/19 at 22:00; Stop 09/28/19 at 21:59; Status DC Metoprolol Tartrate (Lopressor Vial) 5 mg PRN Q6HRS PRN IVP HYPERTENSION Last administered on 10/06/19at 10:14; Start 09/28/19 at 09:00 Potassium Acetate 40 meq/Magnesium Sulfate 5 meq/ Multivitamins 10 ml/Chromium/ Copper/Manganese/ Seleni/Zn 1 ml/ Insulin Human Regular 30 unit/ Total Parenteral Nutrition/Amino Acids/Dextrose/ Fat Emulsion Intravenous 1,920 ml @ 80 mls/hr TPN CONT IV Last administered on 09/28/19at 21:26; Start 09/28/19 at 22:00; Stop 09/29/19 at 21:59; Status DC Potassium Acetate 40 meq/Magnesium Sulfate 5 meq/ Multivitamins 10 ml/Chromium/ Copper/Manganese/ Seleni/Zn 1 ml/ Insulin Human Regular 30 unit/ Total Parenteral Nutrition/Amino Acids/Dextrose/ Fat Emulsion Intravenous 1,920 ml @ 80 mls/hr TPN CONT IV Last administered on 09/29/19at 23:23; Start 09/29/19 at 22:00; Stop 09/30/19 at 21:59; Status DC Potassium Acetate 40 meq/Magnesium Sulfate 5 meq/ Multivitamins 10 ml/Chromium/ Copper/Manganese/ Seleni/Zn 1 ml/ Insulin Human Regular 30 unit/ Total Parenteral Nutrition/Amino Acids/Dextrose/ Fat Emulsion Intravenous 1,920 ml @ 80 mls/hr TPN CONT IV Last administered on 09/30/19at 21:35; Start 09/30/19 at 22:00; Stop 10/01/19 at 21:59; Status DC Furosemide (Lasix) 20 mg 1X ONCE IVP Last administered on 10/01/19at 06:26; Start 10/01/19 at 06:15; Stop 10/01/19 at 06:16; Status DC Methylprednisolone Sodium Succinate (SOLU-Medrol 125MG VIAL) 125 mg 1X ONCE IV Last administered on 10/01/19at 06:26; Start 10/01/19 at 06:15; Stop 10/01/19 at 06:16; Status DC Albuterol/ Ipratropium (Duoneb) 3 ml Q4HRS NEB Last administered on 10/11/19at 07:29; Start 10/01/19 at 08:00 Fentanyl Citrate 30 ml @ 0 mls/hr CONT PRN IV SEE PROTOCOL Last administered on 10/11/19at 04:50; Start 10/01/19 at 06:00 Propofol 100 ml @ 0 mls/hr CONT PRN IV SEE PROTOCOL Last administered on 10/08/19at 23:50; Start 10/01/19 at 06:00 Fentanyl Citrate (Fentanyl 2ml Vial) 25 mcg PRN Q1HR PRN IV SEE COMMENTS; Sta rt 10/01/19 at 06:00 Fentanyl Citrate (Fentanyl 2ml Vial) 50 mcg PRN Q1HR PRN IV SEE COMMENTS; Start 10/01/19 at 06:00 Chlorhexidine Gluconate (Peridex) 15 ml BID MM ; Start 10/01/19 at 09:00; Stop 10/01/19 at 07:58; Status DC Potassium Acetate 40 meq/Magnesium Sulfate 5 meq/ Multivitamins 10 ml/Chromium/ Copper/Manganese/ Seleni/Zn 1 ml/ Insulin Human Regular 30 unit/ Total Paren teral Nutrition/Amino Acids/Dextrose/ Fat Emulsion Intravenous 1,920 ml @ 80 mls/hr TPN CONT IV Last administered on 10/01/19at 21:19; Start 10/01/19 at 22:00; Stop 10/02/19 at 21:59; Status DC Acetylcysteine (Mucomyst 20% Resp Treatment) 600 mg BID NEB Last administered on 10/07/19at 09:33; Start 10/01/19 at 21:00; Stop 10/07/19 at 10:39; Status DC Magnesium Sulfate 100 ml @ 25 mls/hr 1X ONCE IV Last administered on 10/01/19at 15:48; Start 10/01/19 at 15:45; Stop 10/01/19 at 19:44; Status DC Potassium Acetate 40 meq/Magnesium Sulfate 5 meq/ Multivitamins 10 ml/Chromium/ Copper/Manganese/ Seleni/Zn 1 ml/ Insulin Human Regular 30 unit/ Total Parenteral Nutrition/Amino Acids/Dextrose/ Fat Emulsion Intravenous 1,920 ml @ 80 mls/hr TPN CONT IV Last administered on 10/02/19at 21:35; Start 10/02/19 at 22:00; Stop 10/03/19 at 21:59; Status DC Potassium Chloride/Water 100 ml @ 100 mls/hr Q1H IV Last administered on 10/03/19at 08:31; Start 10/03/19 at 07:00; Stop 10/03/19 at 08:59; Status DC Potassium Acetate 40 meq/Magnesium Sulfate 5 meq/ Multivitamins 10 ml/Chromium/ Copper/Manganese/ Seleni/Zn 1 ml/ Insulin Human Regular 30 unit/ Total Parenteral Nutrition/Amino Acids/Dextrose/ Fat Emulsion Intravenous 1,920 ml @ 80 mls/hr TPN CONT IV Last administered on 10/03/19at 21:54; Start 10/03/19 at 22:00; Stop 10/04/19 at 19:34; Status DC Lidocaine HCl (Buffered Lidocaine 1%) 3 ml STK-MED ONCE .ROUTE ; Start 10/03/19 at 12:14; Stop 10/03/19 at 12:14; Status DC Lidocaine HCl (Buffered Lidocaine 1%) 3 ml 1X ONCE IJ Last administered on 10/03/19at 13:11; Start 10/03/19 at 13:00; Stop 10/03/19 at 13:01; Status DC Magnesium Sulfate 50 ml @ 25 mls/hr 1X ONCE IV ; Start 10/04/19 at 08:15; Stop 10/04/19 at 10:14; Status DC Potassium Acetate 40 meq/Magnesium Sulfate 10 meq/ Multivitamins 10 ml/Chromium/ Copper/Manganese/ Seleni/Zn 1 ml/ Insulin Human Regular 20 unit/ Total Parenteral Nutrition/Amino Acids/Dextrose/ Fat Emulsion Intravenous 1,920 ml @ 80 mls/hr TPN CONT IV Last administered on 10/04/19at 21:32; Start 10/04/19 at 22:00; Stop 10/05/19 at 21:59; Status DC Potassium Chloride/Water 100 ml @ 100 mls/hr Q1H IV Last administered on 10/05/19at 09:12; Start 10/05/19 at 08:00; Stop 10/05/19 at 09:59; Status DC Alteplase, Recombinant (Cathflo For Central Catheter Clearance) 4 mg 1X ONCE INT CAT ; Start 10/05/19 at 09:15; Stop 10/05/19 at 09:16; Status UNV Alteplase, Recombinant (Cathflo For Central Catheter Clearance) 4 mg 1X ONCE INT CAT ; Start 10/05/19 at 09:15; Stop 10/05/19 at 09:16; Status UNV Alteplase, Recombinant (Cathflo For Central Catheter Clearance) 4 mg 1X ONCE INT CAT ; Start 10/05/19 at 09:15; Stop 10/05/19 at 09:16; Status UNV Alteplase, Recombinant 4 mg/ Sodium Chloride 20 ml @ 20 mls/hr 1X ONCE IV Last administered on 10/05/19at 10:10; Start 10/05/19 at 10:00; Stop 10/05/19 at 10:59; Status DC Alteplase, Recombinant 4 mg/ Sodium Chloride 20 ml @ 20 mls/hr 1X ONCE IV Last administered on 10/05/19at 10:09; Start 10/05/19 at 10:00; Stop 10/05/19 at 10:59; Status DC Alteplase, Recombinant 4 mg/ Sodium Chloride 20 ml @ 20 mls/hr 1X ONCE IV Last administered on 10/05/19at 10:09; Start 10/05/19 at 10:00; Stop 10/05/19 at 10:59; Status DC Potassium Acetate 60 meq/Magnesium Sulfate 10 meq/ Multivitamins 10 ml/Chromium/ Copper/Manganese/ Seleni/Zn 1 ml/ Insulin Human Regular 20 unit/ Total Parenteral Nutrition/Amino Acids/Dextrose/ Fat Emulsion Intravenous 1,920 ml @ 80 mls/hr TPN CONT IV Last administered on 10/05/19at 21:55; Start 10/05/19 at 22:00; Stop 10/06/19 at 21:59; Status DC Albumin Human 500 ml @ 125 mls/hr 1X ONCE IV Last administered on 10/06/19at 12:01; Start 10/06/19 at 11:15; Stop 10/06/19 at 15:14; Status DC Sodium Chloride 500 ml @ 500 mls/hr 1X ONCE IV Last administered on 10/06/19at 13:50; Start 10/06/19 at 11:15; Stop 10/06/19 at 12:14; Status DC Potassium Acetate 60 meq/Magnesium Sulfate 14 meq/ Multivitamins 10 ml/Chromium/ Copper/Manganese/ Seleni/Zn 1 ml/ Insulin Human Regular 20 unit/ Total Parenteral Nutrition/Amino Acids/Dextrose/ Fat Emulsion Intravenous 1,920 ml @ 80 mls/hr TPN CONT IV Last administered on 10/06/19at 22:26; Start 10/06/19 at 22:00; Stop 10/07/19 at 21:59; Status DC Ciprofloxacin/ Dextrose 200 ml @ 200 mls/hr Q12HR IV Last administered on 10/11/19at 08:58; Start 10/06/19 at 21:00 Albumin Human 250 ml @ 62.5 mls/hr 1X ONCE IV Last administered on 10/07/19at 11:09; Start 10/07/19 at 11:00; Stop 10/07/19 at 14:59; Status DC Furosemide (Lasix) 20 mg 1X ONCE IVP Last administered on 10/07/19at 14:52; Start 10/07/19 at 10:45; Stop 10/07/19 at 10:49; Status DC Potassium Acetate 60 meq/Magnesium Sulfate 14 meq/ Multivitamins 10 ml/Chromium/ Copper/Manganese/ Seleni/Zn 1 ml/ Insulin Human Regular 15 unit/ Total Parenteral Nutrition/Amino Acids/Dextrose/ Fat Emulsion Intravenous 1,920 ml @ 80 mls/hr TPN CONT IV Last administered on 10/07/19at 22:08; Start 10/07/19 at 22:00; Stop 10/08/19 at 21:59; Status DC Potassium Acetate 60 meq/Magnesium Sulfate 14 meq/ Multivitamins 10 ml/Chromium/ Copper/Manganese/ Seleni/Zn 1 ml/ Insulin Human Regular 15 unit/ Total Parenteral Nutrition/Amino Acids/Dextrose/ Fat Emulsion Intravenous 1,920 ml @ 80 mls/hr TPN CONT IV Last administered on 10/08/19at 22:12; Start 10/08/19 at 22:00; Stop 10/09/19 at 21:59; Status DC Potassium Acetate 60 meq/Magnesium Sulfate 14 meq/ Multivitamins 10 ml/Chromium/ Copper/Manganese/ Seleni/Zn 1 ml/ Insulin Human Regular 15 unit/ Total Parenteral Nutrition/Amino Acids/Dextrose/ Fat Emulsion Intravenous 1,920 ml @ 80 mls/hr TPN CONT IV Last administered on 10/09/19at 22:22; Start 10/09/19 at 22:00; Stop 10/10/19 at 21:59; Status DC Furosemide (Lasix) 20 mg 1X ONCE IVP Last administered on 10/10/19at 11:07; Start 10/10/19 at 10:30; Stop 10/10/19 at 10:34; Status DC Potassium Acetate 60 meq/Magnesium Sulfate 14 meq/ Multivitamins 10 ml/Chromium/ Copper/Manganese/ Seleni/Zn 1 ml/ Insulin Human Regular 15 unit/ Sodium Chloride 20 meq/Total Parenteral Nutrition/Amino Acids/Dextrose/ Fat Emulsion Intravenous 1,920 ml @ 80 mls/hr TPN CONT IV Last administered on 10/10/19at 21:54; Start 10/10/19 at 22:00; Stop 10/11/19 at 21:59 Active Scripts Active Reported Bisoprolol Fumarate 5 Mg Tablet 10 Mg PO DAILY Vitals/I & O Vital Sign - Last 24 Hours 10/10/19 10/10/19 10/10/19 10/10/19 11:00 11:36 12:00 12:00 Temp 98.6 98.6 Pulse 115 111 Resp 33 25 B/P (MAP) 137/87 (104) 113/74 (87) Pulse Ox 98 96 93 O2 Delivery Tracheal Collar Tracheal Collar Tracheal Collar Trach Collar O2 Flow Rate 8.0 10/10/19 10/10/19 10/10/19 10/10/19 13:00 14:00 15:00 15:40 Pulse 111 108 111 Resp 21 B/P (MAP) 113/62 (79) 96/59 (71) 116/75 (89) Pulse Ox 96 98 98 O2 Delivery Tracheal Collar Tracheal Collar Tracheal Collar Trach Collar 10/10/19 10/10/19 10/10/19 10/10/19 16:00 16:05 17:00 18:00 Temp 98.5 98.5 Pulse 112 111 108 Resp 16 B/P (MAP) 105/65 (78) 102/65 (77) 108/74 (85) Pulse Ox 98 97 98 98 O2 Delivery Tracheal Collar Tracheal Collar Tracheal Collar Tracheal Collar O2 Flow Rate 8.0 10/10/19 10/10/19 10/10/19 10/10/19 19:00 19:34 20:00 20:00 Temp 98.7 98.7 Pulse 108 110 Resp 20 B/P (MAP) 99/59 (72) 104/60 (75) Pulse Ox 98 94 91 O2 Delivery Tracheal Collar Tracheal Collar Tracheal Collar Trach Collar O2 Flow Rate 8.0 10/10/19 10/10/19 10/10/19 10/10/19 21:00 22:00 23:00 23:38 Pulse 112 112 110 Resp 22 B/P (MAP) 119/81 (94) 104/62 (76) 123/65 (84) Pulse Ox 89 99 98 99 O2 Delivery Tracheal Collar Tracheal Collar Tracheal Collar Tracheal Collar O2 Flow Rate 8.0 10/11/19 10/11/19 10/11/19 10/11/19 00:00 00:02 01:00 02:00 Temp 98.8 98.8 Pulse 108 108 106 Resp 18 17 B/P (MAP) 114/66 (82) 112/57 (75) 106/61 (76) Pulse Ox 98 98 99 O2 Delivery Trach Collar Tracheal Collar Tracheal Collar Tracheal Collar 10/11/19 10/11/19 10/11/19 10/11/19 03:00 03:14 04:04 04:07 Temp 98.2 98.2 Pulse 104 106 Resp 17 B/P (MAP) 109/57 (74) 112/57 (75) Pulse Ox 99 98 99 O2 Delivery Tracheal Collar Tracheal Collar Trach Collar Tracheal Collar O2 Flow Rate 8.0 10/11/19 10/11/19 10/11/19 10/11/19 05:00 06:00 07:00 07:29 Pulse 104 108 116 Resp B/P (MAP) 113/57 (75) 130/93 (105) 119/81 (94) Pulse Ox 99 94 98 100 O2 Delivery Tracheal Collar Tracheal Collar Tracheal Collar Tracheal Collar O2 Flow Rate 8.0 10/11/19 10/11/19 10/11/19 10/11/19 08:00 08:00 09:00 10:02 Temp 99.2 99.2 Pulse 120 116 110 Resp B/P (MAP) 114/81 (92) 112/74 (87) 95/71 (79) Pulse Ox 99 98 98 O2 Delivery Trach Collar Tracheal Collar Tracheal Collar Tracheal Collar Intake and Output 10/10/19 10/10/19 10/11/19 15:00 23:00 07:00 Intake Total 400 ml 3400 ml 985 ml Output Total 1370 ml 765 ml 540 ml Balance -970 ml 2635 ml 445 ml Hemodynamically unstable?: No Is patient in severe pain?: No Is NPO status required?: No CARIN FERNANDEZ MD Oct 11, 2019 10:22
[2019-10-11] MEDS: ONDANSETRON PF 4 MG/2 ML VIAL. IV PRN (10:32)
[2019-10-11] MEDS: MICAFUNGIN 100 MG in IV DEXTROSE 5% 100ML 100 ML IV SCH (12:20)
--- NOTE | 2019-10-11 12:23 | NUR ---
SS following up with discharge planning. SS reviewed pt chart and discussed with pt RN. Pt has tentative surgery scheduled for next week. Pt currently on trach collar, TPN, and IV Meropenem, Micafungin, and Cipro. Pt has drains x3 and chest tube. Pt max assist and dependent. Pt is self pay pt. SS will continue to follow for discharge planning.
[2019-10-11] MEDS: TPN PER PHARMACY MC PRN (12:45)
--- NOTE | 2019-10-11 12:45 | NUR ---
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, 8 inches Weight: 87.628404 kg Current diet: NPO LABS: Sodium: 136 Potassium: 4.3 Chloride: 99 Calcium: 10.1 Corrected Calcium: 12.50 Magnesium: 1.9 CO2: 33 SCr: 0.7 Glucose: 101-156 Albumin: 1.0 AST: 17 ALT: 18 TPN FORMULA: TPN TYPE: Central Continuous AMINO ACIDS: 80 gm DEXTROSE: 250 gm LIPIDS: 20 gm SODIUM CHLORIDE: 20 mEq POTASSIUM CHLORIDE: 30 mEq POTASSIUM ACETATE: 30 mEq MAGNESIUM: 14 mEq INSULIN: 15 units MULTIPLE VITAMIN: 10 ml TRACE ELEMENTS: 1 ml(s) TPN PLAN: Na stable. TCO2 elevated- change to 30 meq K acetate and 30 meq K cloride. BG variable- continue insulin as is TG 174- no change needed to lipids. -BMP, Mag and Phos in AM. R: Change TPN as noted above. Will monitor electrolytes, glucose, and tolerance to TPN. MIKAYLA CHU RPH, 10/11/19 [id number]
--- NOTE | 2019-10-11 12:46 | PDOC ---
Objective: Objective: D/w nurse - stable. Reviewed chart - tentative surgery next week. Vital Signs: Vital Signs Date Time Temp Pulse Resp B/P (MAP) Pulse Ox O2 Delivery O2 Flow Rate FiO2 10/11/19 12:27 Tracheal Collar 8.0 10/11/19 10:02 110 22 95/71 (79) 98 10/11/19 08:00 99.2 99.2 Labs: Laboratory Tests Test 10/10/19 17:15 10/11/19 06:28 10/11/19 12:22 Glucose (Fingerstick) 149 mg/dL 101 mg/dL 156 mg/dL Sodium Level 136 mmol/L Potassium Level 4.3 mmol/L Chloride Level 99 mmol/L Carbon Dioxide Level 33 mmol/L Anion Gap 4 Blood Urea Nitrogen 15 mg/dL Creatinine 0.7 mg/dL Estimated GFR (Cockcroft-Gault) 88.9 Glucose Level 109 mg/dL Calcium Level 10.1 mg/dL Triglycerides Level 174 mg/dL BLOOD CULTURE Preliminary NO GROWTH AFTER 4 DAYS PE: GEN: NAD - up in chair, mother present LUNGS: trach collar HEART: tachycardic NEURO/PSYCH: awake and alert A/P: Complicated pancreatitis -- Supportive care. Justicifation of Admission Dx: Justifications for Admission: Justification of Admission Dx: Yes CYNDEE FALCON Oct 11, 2019 12:46
[2019-10-11] MEDS: POLYVINYL ALCOHOL 1.4% OPHTH SOLUTION 15ML BOTTLE. OU PRN (21:17)
[2019-10-11] MEDS ORDERED: TOTAL PARENTERAL NUTRITION IV SCH ×10 (22:00)
[2019-10-11] MEDS ORDERED: [UNRECOGNIZED DRUG - OTHER] IV SCH ×10 (22:00)
[2019-10-11] MEDS ORDERED: AMINO ACID IV SCH ×10 (22:00)
[2019-10-11] MEDS ORDERED: DEXTROSE 70% IV SCH ×10 (22:00)
[2019-10-12] VITALS (16 sets, daily range): BP systolic 94–158; BP diastolic 57–95
[2019-10-12] MEDS: PROCHLORPERAZINE 10 MG/2 ML VIAL. IV PRN ×2 (02:49→11:56)
[2019-10-12] MEDS: IPRATRPIUM/ALBUTEROL 0.5/2.5MG 3 ML NEBU. NEB SCH ×5 (04:00→19:58)
[2019-10-12] MEDS: INSULIN LISPRO 300 UNITS/3 ML VIAL. SQ SCH ×4 (06:00→18:05)
[2019-10-12 06:35] LABS: BASO % 0 % (0-3); EOS # 0.1 x10^3/uL (0.0-0.7); EOS % 1 % (0-3); HEMOGLOBIN 9.4 g/dL (12.0-15.5); LYMPH # 1.5 x10^3/uL (1.0-4.8); LYMPH % 11 % (24-48); MEAN CORPUSCULAR HEMOGLOBIN 28 pg (25-35); MEAN CORPUSCULAR HGB CONC 33 g/dL (31-37); MEAN CORPUSCULAR VOLUME 85 fL (79-100); MONO # 0.8 x10^3/uL (0.0-1.1); MONO % 6 % (0-9); NEUT # 10.8 x10^3/uL (1.8-7.7); NEUT % 81 % (31-73); PLATELET COUNT 449 x10^3/uL (140-400); RED BLOOD COUNT 3.41 x10^6/uL (3.50-5.40); RED CELL DISTRIBUTION WIDTH 17.5 % (11.5-14.5); WHITE BLOOD COUNT 13.2 x10^3/uL (4.0-11.0)
--- NOTE | 2019-10-12 06:41 | NUR ---
Last night patient had and episode of vomiting and sao2 <87%. Able to suction. complaining of nausea. Compazine given. low grade fever. Before shift change patient patient had another episode of low sa02 <86%. suction x1. Patient refused further suctioning. Will continue to monitor.
[2019-10-12 06:49] LABS: ALBUMIN 1.1 g/dL (3.4-5.0); ALBUMIN/GLOBULIN RATIO 0.3 (1.0-1.7); CALCIUM 10.4 mg/dL (8.5-10.1); CREATININE 0.7 mg/dL (0.6-1.0); GFR 88.9; MAGNESIUM 2.1 mg/dL (1.8-2.4); PHOSPHORUS 4.2 mg/dL (2.6-4.7); POTASSIUM 4.3 mmol/L (3.5-5.1); TOTAL BILIRUBIN 0.4 mg/dL (0.2-1.0); TOTAL PROTEIN 4.8 g/dL (6.4-8.2)
--- NOTE | 2019-10-12 07:13 | NUR ---
Patient reports being "nervous". Wants to talk to Dr. Servin about the surgery,
--- NOTE | 2019-10-12 07:55 | PDOC ---
Infectious Disease Note Subjective Subjective Patient is awake says she is feeling better ROS ROS no n/v/d/ Vital Sign Vital Signs Vital Signs Date Time Temp Pulse Resp B/P (MAP) Pulse Ox O2 Delivery O2 Flow Rate FiO2 10/12/19 07:25 98 Tracheal Collar 8.0 10/12/19 07:00 122 21 97/82 (87) 10/12/19 04:00 99.9 99.9 Physical Exam PHYSICAL EXAM GENERAL: Propped up in bed, resting quietly HEENT: NGT in place. NECK: Tracheostomy LUNGS: Diminished aeration bases, no accessory muscle use - CT on left with clear fluid HEART: S1, S2,regular ABDOMEN: Mild distention, bowel sounds present, soft, grimaces to palpation, drains x 3 : Lind ( 09/24) EXTREMITIES: + edema BLE SKIN: no signs of gen rash LUE-PICC (09/15) without signs of complications Labs Lab Laboratory Tests Test 10/11/19 12:22 10/11/19 17:01 10/12/19 00:36 10/12/19 06:15 Glucose (Fingerstick) 156 mg/dL (70-99) 157 mg/dL (70-99) 141 mg/dL (70-99) White Blood Count 13.2 x10^3/uL (4.0-11.0) Red Blood Count 3.41 x10^6/uL (3.50-5.40) Hemoglobin 9.4 g/dL (12.0-15.5) Hematocrit 29.0 % (36.0-47.0) Mean Corpuscular Volume 85 fL (79-100) Mean Corpuscular Hemoglobin 28 pg (25-35) Mean Corpuscular Hemoglobin Concent 33 g/dL (31-37) Red Cell Distribution Width 17.5 % (11.5-14.5) Platelet Count 449 x10^3/uL (140-400) Neutrophils (%) (Auto) 81 % (31-73) Lymphocytes (%) (Auto) 11 % (24-48) Monocytes (%) (Auto) 6 % (0-9) Eosinophils (%) (Auto) 1 % (0-3) Basophils (%) (Auto) 0 % (0-3) Neutrophils # (Auto) 10.8 x10^3/uL (1.8-7.7) Lymphocytes # (Auto) 1.5 x10^3/uL (1.0-4.8) Monocytes # (Auto) 0.8 x10^3/uL (0.0-1.1) Eosinophils # (Auto) 0.1 x10^3/uL (0.0-0.7) Basophils # (Auto) 0.0 x10^3/uL (0.0-0.2) Prothrombin Time 14.0 SEC (11.7-14.0) Prothromb Time International Ratio 1.1 (0.8-1.1) Sodium Level 135 mmol/L (136-145) Potassium Level 4.3 mmol/L (3.5-5.1) Chloride Level 99 mmol/L (98-107) Carbon Dioxide Level 34 mmol/L (21-32) Anion Gap 2 (6-14) Blood Urea Nitrogen 13 mg/dL (7-20) Creatinine 0.7 mg/dL (0.6-1.0) Estimated GFR (Cockcroft-Gault) 88.9 BUN/Creatinine Ratio 19 (6-20) Glucose Level 130 mg/dL (70-99) Calcium Level 10.4 mg/dL (8.5-10.1) Phosphorus Level 4.2 mg/dL (2.6-4.7) Magnesium Level 2.1 mg/dL (1.8-2.4) Total Bilirubin 0.4 mg/dL (0.2-1.0) Aspartate Amino Transf (AST/SGOT) 23 U/L (15-37) Alanine Aminotransferase (ALT/SGPT) 20 U/L (14-59) Alkaline Phosphatase 255 U/L (46-116) Total Protein 4.8 g/dL (6.4-8.2) Albumin 1.1 g/dL (3.4-5.0) Albumin/Globulin Ratio 0.3 (1.0-1.7) Test 10/12/19 06:20 Glucose (Fingerstick) 133 mg/dL (70-99) Micro Objective Assessment Fever intermittent could be from underlying pancreatitis vs aspiration ? Ileus with vomiting Abd distention - U/S and CT reviewed s/p 0.4 L of opaque, debris-containing ascites was removed 08/23 Acute pancreatitis with persistent necrosis - 08/14 status post KAYLIN drain placement + C paropsilosis; 08/23 + yeast & high amylase; s/p additional drains on 08/25 Anemia - S/p PRBCs Cholelithiasis with thickening of the gallbladder wall. Leucocytosis improved JUANA, hyperkalemia, Metabolic acidosis off dialysis Acute hypoxic resp failure ,bilateral pleural effusion and atelectasis hypocalcemia Prediabetes HTN s/p trach Plan Plan of Care Continue cipro 10/05. sputum from 09/30 - growing PSA - may be colonization (I to Meropenem), clinically stable from resp standpoint Continue meropenem, has MDRO PSAE September 24 from abd Continue micafungin September 24 Follow-up cultures fluid for yeast ID Monitor labs/temp General surgery following Monitor drain output Maintain aspiration precaution Supportive care Contact islation for CRE/MDRO KIMMY JONES MD Oct 12, 2019 07:55
[2019-10-12] MEDS: MEROPENEM 1 GM in IV NORMAL SALINE 100ML 100 ML IV SCH ×2 (08:05→20:58)
[2019-10-12] MEDS: PANTOPRAZOLE IV PUSH 40 MG VIAL. IVP SCH (08:05)
[2019-10-12] MEDS: CIPROFLOXACIN 400MG PREMIX 200 ML IV SCH ×2 (08:05→20:57)
--- NOTE | 2019-10-12 09:45 | PDOC ---
PROGRESS NOTES Chief Complaint Chief Complaint impression History of Present Illness 48yo F w/ PMHx HTN, prediabetes who presented the emergency room complaints of abdominal pain. Patient described off and on 3 days. She states is constant, described as a squeezing sensation in a band-like distribution. + nausea, vomiting. She denies any fever or diarrhea. Patient denies any abdominal surgical procedures. She stateed is worse with movements, car ride. Pain initially was upper abdomen however now pretty much generalized. Last bowel movement was 07/03/2019. Nothing makes her pain better. Patient denies any shortness of breath. She does state the pain moves into her chest. Denies any headache or visual changes. Lipase 79306, AST 401, ALT 249, Bilirubin 1.4. CT abdomen confirms pancreatic inflammation, peripancreatic fluid and inflammatory changes around the pancreas consistent with pancreatitis. Cholelithiasis and 1.4cm uterine fibroid as well as possible left salpingitis. Admitted for further care Gallstone pancreatitis with necrosis. -CT A/P 09/23 showed multiple pseudocysts, slight larger on the right. s/p drains x , 09/24. + PSAE (MDRO-R Cefepime, Zosyn ALEXANDRA < 64) and yeast, -s/p drain 08/14. C. parapsilosis. s/p drain 08/23 + yeast & high amylase; s/p additional drain on 08/25. Drains removed. Ascites s/p paracentesis 08/02 & 08/23. C. parapsilosis JUANA. off HD. impression Acute hypoxic Respiratory failure required mechanical ventilation Tracheostomy bilateral pleural effusions/pulm edema s/p Throacentesis on 10/03/2019 Severe Acute gallstone pancreatitis (not a surgical candidate at this time) with necrosis Acute kidney failure now requiring dialysis Gallstones (Calculus of gallbladder with acute cholecystitis without obstruction) HTN Intractable pain Intractable nausea Covid 19 negative. Acute on chronic anemia EEG: No seizure activityFever - better currently - intermittent could be from underlying pancreatitis blood cults 08/21 - neg so far ? Ileus with vomiting Abd distention - U/S and CT reviewed s/p 0.4 L of opaque, debris-containing ascites was removed 08/23 Acute pancreatitis with persistent necrosis Gallstone pancreatitis with necrosis. -CT A/P 09/23 showed multiple pseudocysts, slight larger on the right. s/p drains x 3, 09/24. + PSAE (MDRO-R Cefepime, Zosyn ALEXANDRA < 64) and yeast, -s/p drain 08/14. C. parapsilosis. s/p drain 08/23 + yeast & high amylase; s/p additional drain on 08/25. Drains removed. Ascites s/p paracentesis 08/02 & 08/23. C. parapsilosis JUANA. off HD. A large fluid collection in the pancreatic bed has slightly decreased in size, described below, the pancreas itself is difficult to visualize, which could be due to necrosis or obscuration of pancreatic parenchyma from the surrounding fluid collection.10/02 - 08/14 status post KAYLIN drain placement + C paropsilosis. s/p additional drains 08/25 Anemia - S/p PRBCs Cholelithiasis with thickening of the gallbladder wall. Leucocytosis improving JUANA, hyperkalemia, Metabolic acidosis off dialysis hypocalcemia Prediabetes HTN s/p trach ESRD on HD Hyperglycemia severe protein-caloric malnutrition Moderate to large left pleural effusion with atelectasis and collapse of most of the left lower lobe, stable 10/05 FEVER 101, BLOOD CULTURE X 2 10/06 iv cipro added 10/07 vent fio2 35% 10/11 tentative surgery next week FEN - PPX - SCDs, off lovenox currently, high risk for thrombosis but in light of her recent anemia and need for transfusion the risks do not outweigh benefits at this time. will continue to evaluate on a daily basis FULL CODE Dispo - ICU, critically ill BACK ON VENT 10/04 vent // no distress iv albumin 10/06 Continue meropenem, has MDRO PSAE September 24 Continue micafungin September 2410/[address] Servin--tentatively next week 38 MIN CC TIME History of Present Illness History of Present Illness 09/25: IR placed drain on 09/24. 4u PRBC after Hb drop. Hb 8.8 today. Off Levophed this morning. T-max 100.3. Much more lethargic today. CXR with left sided diffuse infiltrates. 09/26: Tachycardic overnight into the 140s. NGT clamped. On BIPAP currently. Drains with serosanguinous discharge. WBC 8, Tmax 99.6F. 09/27: Seen on trach shield in ICU. Hypertensive and tachycardic. Labs stable. blood stained drainage from drains. Afebrile. 09/28: Seen on trach shield in ICU. She is a bit confused, drowsy, but when sitting up is conversational and confusion somewhat clears. She is asking for more pain medication. Stable drains, still very tachy.Na 147 09/29: Patient vomited overnight. Aspirated. Tried to pull her trach out, she was told she would without her trach, she said "I know, I just want to go home". Hb 7.6. Afebrile, still very tachycardic. 1055ml out of right sided KAYLIN drain 09/30: Overnight hypoxic, on BIPAP. CXR with left sided white out lung. Signifi cant mucous plug suctioned by RT with improvement in her ABG after 2 hours this morning. Not really active, tired, lethargic. 890ml out of drains past 24 hours. On vent. D/w daughter bedside. 10/01: Still on vent overnight with copious pulmonary drainage on suctioning. Labs stable, UOP stable 1L. Drain output still significant with 1505mL. She has shown her phone password [id number] and made it clear she does not want her daughters to access her phone at this time. 6:15: Patient quite frail, she has had such a lengthy hospital stay that she is certainly depressed and as documented 3 days ago is wanting to go home. Most likely patient is also tired of being hospitalized with an end point no where in sight. Reassurance and encouragement provided during my visit. Plans for thoracentesis later in the day 10/03: No acute events reported overnight, case discussed with nursing staff patient in no acute distress, complaints of the abdomimal pain during my visit, patient is quite depressed, reassurance has been provided, discussed with nursing staff at bedside, replace electrolytes 10/04 off vent / on TS , no distress 10/10 Patient seen and examined ICU BED critically ill guardedlong-term prognosis Sputum from 09/30 - growing PSA - may be colonization I to Meropenem add Cipro Continue meropenem, has MDRP PSAE September 24 from abd cont micafungin September 24 bleeding from Sx. site RLQ and firmness) max 1003 oncology consulted COMMENTS: Has specimen been collected/obtained? Y 36 MIN CC TIME Date: Aug 15, 2019 Pre-Op Diagnosis: Necrotizing pancreatitis Post-Op Diagnosis: same Procedure Performed: laparoscopic exploration Surgeon: Renzo Servin Asst: Dr. Arturo Harris Anesthesia Type: GETA plus local Blood Loss: 50 Specimans Obtained: cultures, debris Findings: 1000 cc ascites suctioned off, cultures sent, diffuse debris, obliteration of surgical planes preventing any meaningful exploration 09/20/2019 Patient seen and examined in the ICU She is a little more alert today but still quite ill Appears clammy and pale and depressed/anxious Discussed with RN Chart reviewed 09/19/2019 Patient seen and examined in the ICU She appears extremely ill She is tachypneic at 35 respirations per minute and tachycardic at 132 bpm She is extremely encephalopathic and shaky She appears clammy Chart reviewed Discussed with RN Prognosis extremely guarded at best 09/18/2019 Patient still in ICU Resting with no apparent distress Chart reviewed 09/17/2019 Patient seen and examined in the ICU She is wiping her face with a cough Discussed with RN Chart reviewed We hope to get her out of the ICU later today if possible 09/16/2019 Patient seen and examined in the ICU once again She is back on NG suction On IV Zosyn Has IV TPN Sedated with Precedex but anxious still Appears somewhat clammy and pale Chart reviewed Discussed with RN She remains critically ill BRIEF OPERATIVE NOTE Pre-Op Diagnosis Pancreatitis with pseudocysts, suspected infection Post-Op Diagnosis same Procedure Performed CT abdominal Drains x 3 Surgeon Tesfaye Anesthesia Type: Conscious Sedation Findings 3 abdominal drains, 14F, with turbid pancreatic fluid and necrotic debris in each. Complications No immediate 08/26: Patient today somewhat restless and having bilious secretions from ET tube, imaging studies ordered, discussed with design studio consultant. Pretty poor prognosis, hopefully is not a fistula, poor surgical candidate. 08/27: Imaging with no acute events, she seems more stable today compared to yesterday. Encouraged as much activity as possible patient at high risk for severe depression. Vitals Vitals Vital Signs Date Time Temp Pulse Resp B/P (MAP) Pulse Ox O2 Delivery O2 Flow Rate FiO2 10/12/19 08:00 Trach Collar 10/12/19 08:00 125 22 113/76 (88) 98 10/12/19 07:25 8.0 10/12/19 04:00 99.9 99.9 Physical Exam Physical Exam GENERAL: Propped up in bed, resting quietly HEENT: NGT in place. NECK: Tracheostomy LUNGS: Diminished aeration bases, no accessory muscle use - CT on left with clear fluid HEART: S1, S2,regular ABDOMEN: Mild distention, bowel sounds present, soft, grimaces to palpation, drains x 3 : Lind ( 09/24) EXTREMITIES: + edema BLE SKIN: no signs of gen rash LUE-PICC (09/15) without signs of complications General: Alert, Oriented X3, Cooperative, No acute distress Heart: Regular rate (SR/ST), Other (distant heart sounds) Lungs: Other (diminshed in bases, Rhonci in LLL) Abdomen: Soft Extremities: No cyanosis, Other (3+ bilateral LE pitting edema) Skin: No rashes, No significant lesion Labs LABS Laboratory Tests Test 10/11/19 12:22 10/11/19 17:01 10/12/19 00:36 10/12/19 06:15 Glucose (Fingerstick) 156 mg/dL (70-99) 157 mg/dL (70-99) 141 mg/dL (70-99) White Blood Count 13.2 x10^3/uL (4.0-11.0) Red Blood Count 3.41 x10^6/uL (3.50-5.40) Hemoglobin 9.4 g/dL (12.0-15.5) Hematocrit 29.0 % (36.0-47.0) Mean Corpuscular Volume 85 fL (79-100) Mean Corpuscular Hemoglobin 28 pg (25-35) Mean Corpuscular Hemoglobin Concent 33 g/dL (31-37) Red Cell Distribution Width 17.5 % (11.5-14.5) Platelet Count 449 x10^3/uL (140-400) Neutrophils (%) (Auto) 81 % (31-73) Lymphocytes (%) (Auto) 11 % (24-48) Monocytes (%) (Auto) 6 % (0-9) Eosinophils (%) (Auto) 1 % (0-3) Basophils (%) (Auto) 0 % (0-3) Neutrophils # (Auto) 10.8 x10^3/uL (1.8-7.7) Lymphocytes # (Auto) 1.5 x10^3/uL (1.0-4.8) Monocytes # (Auto) 0.8 x10^3/uL (0.0-1.1) Eosinophils # (Auto) 0.1 x10^3/uL (0.0-0.7) Basophils # (Auto) 0.0 x10^3/uL (0.0-0.2) Prothrombin Time 14.0 SEC (11.7-14.0) Prothromb Time International Ratio 1.1 (0.8-1.1) Sodium Level 135 mmol/L (136-145) Potassium Level 4.3 mmol/L (3.5-5.1) Chloride Level 99 mmol/L (98-107) Carbon Dioxide Level 34 mmol/L (21-32) Anion Gap 2 (6-14) Blood Urea Nitrogen 13 mg/dL (7-20) Creatinine 0.7 mg/dL (0.6-1.0) Estimated GFR (Cockcroft-Gault) 88.9 BUN/Creatinine Ratio 19 (6-20) Glucose Level 130 mg/dL (70-99) Calcium Level 10.4 mg/dL (8.5-10.1) Phosphorus Level 4.2 mg/dL (2.6-4.7) Magnesium Level 2.1 mg/dL (1.8-2.4) Total Bilirubin 0.4 mg/dL (0.2-1.0) Aspartate Amino Transf (AST/SGOT) 23 U/L (15-37) Alanine Aminotransferase (ALT/SGPT) 20 U/L (14-59) Alkaline Phosphatase 255 U/L (46-116) Total Protein 4.8 g/dL (6.4-8.2) Albumin 1.1 g/dL (3.4-5.0) Albumin/Globulin Ratio 0.3 (1.0-1.7) Test 10/12/19 06:20 Glucose (Fingerstick) 133 mg/dL (70-99) Assessment and Plan Assessmemt and Plan Problems Medical Problems: (1) Acute pancreatitis Status: Acute (2) Cholelithiasis Status: Acute Comment Review of Relevant I have reviewed the following items kolby (where applicable) has been applied. Labs Laboratory Tests Test 10/10/19 11:17 10/10/19 17:15 10/11/19 06:28 10/11/19 12:22 Glucose (Fingerstick) 183 mg/dL (70-99) 149 mg/dL (70-99) 101 mg/dL (70-99) 156 mg/dL (70-99) Sodium Level 136 mmol/L (136-145) Potassium Level 4.3 mmol/L (3.5-5.1) Chloride Level 99 mmol/L (98-107) Carbon Dioxide Level 33 mmol/L (21-32) Anion Gap 4 (6-14) Blood Urea Nitrogen 15 mg/dL (7-20) Creatinine 0.7 mg/dL (0.6-1.0) Estimated GFR (Cockcroft-Gault) 88.9 Glucose Level 109 mg/dL (70-99) Calcium Level 10.1 mg/dL (8.5-10.1) Triglycerides Level 174 mg/dL (0-150) Test 10/11/19 17:01 10/12/19 00:36 10/12/19 06:15 10/12/19 06:20 Glucose (Fingerstick) 157 mg/dL (70-99) 141 mg/dL (70-99) 133 mg/dL (70-99) White Blood Count 13.2 x10^3/uL (4.0-11.0) Red Blood Count 3.41 x10^6/uL (3.50-5.40) Hemoglobin 9.4 g/dL (12.0-15.5) Hematocrit 29.0 % (36.0-47.0) Mean Corpuscular Volume 85 fL (79-100) Mean Corpuscular Hemoglobin 28 pg (25-35) Mean Corpuscular Hemoglobin Concent 33 g/dL (31-37) Red Cell Distribution Width 17.5 % (11.5-14.5) Platelet Count 449 x10^3/uL (140-400) Neutrophils (%) (Auto) 81 % (31-73) Lymphocytes (%) (Auto) 11 % (24-48) Monocytes (%) (Auto) 6 % (0-9) Eosinophils (%) (Auto) 1 % (0-3) Basophils (%) (Auto) 0 % (0-3) Neutrophils # (Auto) 10.8 x10^3/uL (1.8-7.7) Lymphocytes # (Auto) 1.5 x10^3/uL (1.0-4.8) Monocytes # (Auto) 0.8 x10^3/uL (0.0-1.1) Eosinophils # (Auto) 0.1 x10^3/uL (0.0-0.7) Basophils # (Auto) 0.0 x10^3/uL (0.0-0.2) Prothrombin Time 14.0 SEC (11.7-14.0) Prothromb Time International Ratio 1.1 (0.8-1.1) Sodium Level 135 mmol/L (136-145) Potassium Level 4.3 mmol/L (3.5-5.1) Chloride Level 99 mmol/L (98-107) Carbon Dioxide Level 34 mmol/L (21-32) Anion Gap 2 (6-14) Blood Urea Nitrogen 13 mg/dL (7-20) Creatinine 0.7 mg/dL (0.6-1.0) Estimated GFR (Cockcroft-Gault) 88.9 BUN/Creatinine Ratio 19 (6-20) Glucose Level 130 mg/dL (70-99) Calcium Level 10.4 mg/dL (8.5-10.1) Phosphorus Level 4.2 mg/dL (2.6-4.7) Magnesium Level 2.1 mg/dL (1.8-2.4) Total Bilirubin 0.4 mg/dL (0.2-1.0) Aspartate Amino Transf (AST/SGOT) 23 U/L (15-37) Alanine Aminotransferase (ALT/SGPT) 20 U/L (14-59) Alkaline Phosphatase 255 U/L (46-116) Total Protein 4.8 g/dL (6.4-8.2) Albumin 1.1 g/dL (3.4-5.0) Albumin/Globulin Ratio 0.3 (1.0-1.7) Laboratory Tests Test 10/11/19 12:22 10/11/19 17:01 10/12/19 00:36 10/12/19 06:15 Glucose (Fingerstick) 156 mg/dL (70-99) 157 mg/dL (70-99) 141 mg/dL (70-99) White Blood Count 13.2 x10^3/uL (4.0-11.0) Red Blood Count 3.41 x10^6/uL (3.50-5.40) Hemoglobin 9.4 g/dL (12.0-15.5) Hematocrit 29.0 % (36.0-47.0) Mean Corpuscular Volume 85 fL (79-100) Mean Corpuscular Hemoglobin 28 pg (25-35) Mean Corpuscular Hemoglobin Concent 33 g/dL (31-37) Red Cell Distribution Width 17.5 % (11.5-14.5) Platelet Count 449 x10^3/uL (140-400) Neutrophils (%) (Auto) 81 % (31-73) Lymphocytes (%) (Auto) 11 % (24-48) Monocytes (%) (Auto) 6 % (0-9) Eosinophils (%) (Auto) 1 % (0-3) Basophils (%) (Auto) 0 % (0-3) Neutrophils # (Auto) 10.8 x10^3/uL (1.8-7.7) Lymphocytes # (Auto) 1.5 x10^3/uL (1.0-4.8) Monocytes # (Auto) 0.8 x10^3/uL (0.0-1.1) Eosinophils # (Auto) 0.1 x10^3/uL (0.0-0.7) Basophils # (Auto) 0.0 x10^3/uL (0.0-0.2) Prothrombin Time 14.0 SEC (11.7-14.0) Prothromb Time International Ratio 1.1 (0.8-1.1) Sodium Level 135 mmol/L (136-145) Potassium Level 4.3 mmol/L (3.5-5.1) Chloride Level 99 mmol/L (98-107) Carbon Dioxide Level 34 mmol/L (21-32) Anion Gap 2 (6-14) Blood Urea Nitrogen 13 mg/dL (7-20) Creatinine 0.7 mg/dL (0.6-1.0) Estimated GFR (Cockcroft-Gault) 88.9 BUN/Creatinine Ratio 19 (6-20) Glucose Level 130 mg/dL (70-99) Calcium Level 10.4 mg/dL (8.5-10.1) Phosphorus Level 4.2 mg/dL (2.6-4.7) Magnesium Level 2.1 mg/dL (1.8-2.4) Total Bilirubin 0.4 mg/dL (0.2-1.0) Aspartate Amino Transf (AST/SGOT) 23 U/L (15-37) Alanine Aminotransferase (ALT/SGPT) 20 U/L (14-59) Alkaline Phosphatase 255 U/L (46-116) Total Protein 4.8 g/dL (6.4-8.2) Albumin 1.1 g/dL (3.4-5.0) Albumin/Globulin Ratio 0.3 (1.0-1.7) Test 10/12/19 06:20 Glucose (Fingerstick) 133 mg/dL (70-99) Microbiology 10/06/19 Blood Culture - Final, Complete NO GROWTH AFTER 5 DAYS 10/03/19 Gram Stain - Final, Complete 10/03/19 Aerobic and Anaerobic Culture - Final, Complete 10/01/19 Gram Stain Evaluation - Final, Complete 10/01/19 Respiratory Culture - Final, Complete 10/01/19 Antimicrobic Susceptibility - Final, Complete 09/25/19 Urine Culture - Final, Complete 09/17/19 Gram Stain - Final, Complete 09/17/19 Aerobic Culture - Final, Complete Medications Current Medications Sodium Chloride 1,000 ml @ 1,000 mls/hr Q1H IV Last administered on 07/04/19at 03:00; Start 07/04/19 at 03:00; Stop 07/04/19 at 03:59; Status DC Ondansetron HCl (Zofran) 4 mg 1X ONCE IVP Last administered on 07/04/19at 03:27; Start 07/04/19 at 03:00; Stop 07/04/19 at 03:01; Status DC Morphine Sulfate (Morphine Sulfate) 4 mg 1X ONCE IV ; Start 07/04/19 at 03:00; Stop 07/04/19 at 03:01; Status Cancel Ketorolac Tromethamine (Toradol 30mg Vial) 30 mg 1X ONCE IV Last administered on 07/04/19at 02:54; Start 07/04/19 at 03:00; Stop 07/04/19 at 03:01; Status DC Fentanyl Citrate (Fentanyl 2ml Vial) 25 mcg 1X ONCE IVP Last administered on 07/04/19at 03:23; Start 07/04/19 at 03:30; Stop 07/04/19 at 03:31; Status DC Fentanyl Citrate (Fentanyl 2ml Vial) 100 mcg STK-MED ONCE .ROUTE ; Start 07/04/19 at 03:18; Stop 07/04/19 at 03:18; Status DC Iohexol (Omnipaque 350 Mg/ml) 90 ml 1X ONCE IV Last administered on 07/04/19at 03:25; Start 07/04/19 at 03:30; Stop 07/04/19 at 03:31; Status DC Info (CONTRAST GIVEN -- Rx MONITORING) 1 each PRN DAILY PRN MC SEE COMMENTS; Start 07/04/19 at 03:30; Stop 07/06/19 at 03:29; Status DC Hydromorphone HCl (Dilaudid) 0.5 mg 1X ONCE IV Last administered on 07/04/19at 03:55; Start 07/04/19 at 04:30; Stop 07/04/19 at 04:32; Status DC Ondansetron HCl (Zofran) 4 mg PRN Q8HRS PRN IV NAUSEA/VOMITING 1ST CHOICE; Start 07/04/19 at 05:00; Stop 07/04/19 at 09:27; Status DC Morphine Sulfate (Morphine Sulfate) 2 mg PRN Q2HR PRN IV SEVERE PAIN 7-10 Last administered on 07/05/19at 12:26; Start 07/04/19 at 05:00; Stop 07/05/19 at 14:15; Status DC Sodium Chloride 1,000 ml @ 125 mls/hr Q8H IV Last administered on 07/04/19at 20:56; Start 07/04/19 at 05:00; Stop 07/05/19 at 04:59; Status DC Hydromorphone HCl (Dilaudid) 0.5 mg PRN Q3HRS PRN IV SEVERE PAIN 7-10 Last administered on 07/05/19at 10:06; Start 07/04/19 at 05:00; Stop 07/05/19 at 12:01; Status DC Piperacillin Sod/ Tazobactam Sod 4.5 gm/Sodium Chloride 100 ml @ 200 mls/hr 1X ONCE IV Last administered on 07/04/19at 05:44; Start 07/04/19 at 06:00; Stop 07/04/19 at 06:29; Status DC Ondansetron HCl (Zofran) 4 mg PRN Q4HRS PRN IV NAUSEA/VOMITING 1ST CHOICE Last administered on 10/11/19at 10:32; Start 07/04/19 at 09:30 Insulin Human Lispro (HumaLOG) 0-9 UNITS Q6HRS SQ Last administered on 10/10/19at 11:19; Start 07/04/19 at 09:30 Dextrose (Dextrose 50%-Water Syringe) 12.5 gm PRN Q15MIN PRN IV SEE COMMENTS; Start 07/04/19 at 09:30 Pantoprazole Sodium (PROTONIX VIAL for IV PUSH) 40 mg DAILYAC IVP Last administered on 10/12/19at 08:05; Start 07/04/19 at 11:30 Prochlorperazine Edisylate (Compazine) 10 mg PRN Q6HRS PRN IV NAUSEA/VOMITING, 2nd CHOICE Last administered on 10/12/19at 02:49; Start 07/04/19 at 17:45 Atenolol (Tenormin) 100 mg DAILY PO ; Start 07/05/19 at 09:00; Stop 07/04/19 at 20:08; Status DC Metoprolol Tartrate (Lopressor Vial) 2.5 mg Q6HRS IVP Last administered on 07/05/19at 05:51; Start 07/04/19 at 20:15; Stop 07/05/19 at 10:02; Status DC Metoprolol Tartrate (Lopressor Vial) 5 mg Q6HRS IVP Last administered on 07/14/19at 00:12; Start 07/05/19 at 10:15; Stop 07/16/19 at 08:48; Status DC Hydromorphone HCl (Dilaudid) 1 mg PRN Q3HRS PRN IV SEVERE PAIN 7-10 Last admin istered on 07/11/19at 05:13; Start 07/05/19 at 12:00; Stop 07/19/19 at 00:25; Status DC Lidocaine HCl (Buffered Lidocaine 1%) 3 ml STK-MED ONCE .ROUTE ; Start 07/05/19 at 12:55; Stop 07/05/19 at 12:56; Status DC Albumin Human 500 ml @ 125 mls/hr 1X ONCE IV Last administered on 07/05/19at 14:33; Start 07/05/19 at 14:30; Stop 07/05/19 at 18:32; Status DC Norepinephrine Bitartrate 8 mg/ Dextrose 258 ml @ 17.299 mls/ hr CONT PRN IV PER PROTOCOL Last administered on 08/02/19at 12:48; Start 07/05/19 at 15:30; Stop 08/05/19 at 09:19; Status DC Sodium Chloride 1,000 ml @ 125 mls/hr Q8H IV Last administered on 07/05/19at 21:04; Start 07/05/19 at 16:00; Stop 07/06/19 at 02:42; Status DC Albumin Human 500 ml @ 125 mls/hr PRN BID PRN IV After every 2L NSS & BP < 90mm Last administered on 09/24/19at 11:40; Start 07/05/19 at 16:00 Iohexol (Omnipaque 300 Mg/ml) 60 ml 1X ONCE IV Last administered on 07/05/19at 17:20; Start 07/05/19 at 17:00; Stop 07/05/19 at 17:01; Status DC Info (CONTRAST GIVEN -- Rx MONITORING) 1 each PRN DAILY PRN MC SEE COMMENTS; Start 07/05/19 at 17:00; Stop 07/07/19 at 16:59; Status DC Meropenem 1 gm/ Sodium Chloride 100 ml @ 200 mls/hr Q8HRS IV Last administered on 07/06/19at 05:45; Start 07/05/19 at 20:00; Stop 07/06/19 at 08:48; Status DC Furosemide (Lasix) 40 mg 1X ONCE IVP Last administered on 07/05/19at 22:12; Start 07/05/19 at 22:30; Stop 07/05/19 at 22:31; Status DC Calcium Chloride 1000 mg/Sodium Chloride 110 ml @ 220 mls/hr 1X ONCE IV Last administered on 07/05/19at 22:11; Start 07/05/19 at 22:30; Stop 07/05/19 at 22:59; Status DC Albuterol Sulfate (Ventolin Neb Soln) 2.5 mg 1X ONCE NEB Last administered on 07/06/19at 00:56; Start 07/05/19 at 22:30; Stop 07/05/19 at 22:31; Status DC Insulin Human Regular (HumuLIN R VIAL) 5 unit 1X ONCE IV Last administered on 07/05/19at 22:14; Start 07/05/19 at 22:30; Stop 07/05/19 at 22:31; Status DC Magnesium Sulfate 50 ml @ 25 mls/hr 1X ONCE IV Last administered on 07/06/19at 02:57; Start 07/06/19 at 03:00; Stop 07/06/19 at 04:59; Status DC Calcium Gluconate 1000 mg/Sodium Chloride 110 ml @ 220 mls/hr 1X ONCE IV Last administered on 07/06/19at 02:46; Start 07/06/19 at 03:00; Stop 07/06/19 at 03:29; Status DC Sodium Chloride 1,000 ml @ 200 mls/hr Q5H IV Last administered on 07/06/19at 02:46; Start 07/06/19 at 03:00; Stop 07/06/19 at 10:21; Status DC Calcium Gluconate 1000 mg/Sodium Chloride 110 ml @ 220 mls/hr 1X ONCE IV Last administered on 07/06/19at 03:21; Start 07/06/19 at 03:30; Stop 07/06/19 at 03:59; Status DC Sodium Bicarbonate 50 meq/Sodium Chloride 1,050 ml @ 75 mls/hr Q14H IV Last administered on 07/10/19at 21:10; Start 07/06/19 at 07:30; Stop 07/11/19 at 10:28; Status DC Calcium Gluconate 2000 mg/Sodium Chloride 120 ml @ 220 mls/hr 1X ONCE IV Last administered on 07/06/19at 09:05; Start 07/06/19 at 07:30; Stop 07/06/19 at 08:02; Status DC Lidocaine HCl (Xylocaine-Mpf 1% 2ml Vial) 2 ml STK-MED ONCE .ROUTE ; Start 07/06/19 at 08:47; Stop 07/06/19 at 08:47; Status DC Meropenem 500 mg/ Sodium Chloride 50 ml @ 100 mls/hr Q12HR IV Last administered on 07/11/19at 21:01; Start 07/06/19 at 18:00; Stop 07/12/19 at 07:58; Status DC Lidocaine HCl (Buffered Lidocaine 1%) 3 ml STK-MED ONCE .ROUTE ; Start 07/06/19 at 09:46; Stop 07/06/19 at 09:46; Status DC Lidocaine HCl (Buffered Lidocaine 1%) 6 ml 1X ONCE INJ Last administered on 07/06/19at 10:26; Start 07/06/19 at 10:15; Stop 07/06/19 at 10:16; Status DC Info (Tpn Per Pharmacy) 1 each PRN DAILY PRN MC SEE COMMENTS Last administered on 10/11/19at 12:45; Start 07/06/19 at 12:00 Sodium Chloride 1,000 ml @ 1,000 mls/hr Q1H PRN IV hypotension; Start 07/06/19 at 12:07; Stop 07/06/19 at 18:06; Status DC Diphenhydramine HCl (Benadryl) 25 mg 1X PRN PRN IV ITCHING; Start 07/06/19 at 12:15; Stop 07/07/19 at 12:14; Status DC Diphenhydramine HCl (Benadryl) 25 mg 1X PRN PRN IV ITCHING; Start 07/06/19 at 12:15; Stop 07/07/19 at 12:14; Status DC Sodium Chloride 1,000 ml @ 400 mls/hr Q2H30M PRN IV PATENCY; Start 07/06/19 at 12:07; Stop 07/07/19 at 00:06; Status DC Info (PHARMACY MONITORING -- do not chart) 1 each PRN DAILY PRN MC SEE COMMENTS; Start 07/06/19 at 12:15; Stop 07/08/19 at 08:13; Status DC Sodium Chloride 90 meq/Calcium Gluconate 10 meq/ Multivitamins 10 ml/Chromium/ Copper/Manganese/ Seleni/Zn 1 ml/ Total Parenteral Nutrition/Amino Acids/Dextrose/ Fat Emulsion Intravenous 55.005 ml @ 2.292 mls/hr TPN CONT IV ; Start 07/06/19 at 22:00; Stop 07/06/19 at 12:33; Status DC Info (Tpn Per Pharmacy) 1 each PRN DAILY PRN MC SEE COMMENTS; Start 07/06/19 at 12:30; Status UNV Sodium Chloride 90 meq/Calcium Gluconate 10 meq/ Multivitamins 10 ml/Chromium/ Copper/Manganese/ Seleni/Zn 0.5 ml/ Total Parenteral Nutrition/Amino Acids/Dextrose/ Fat Emulsion Intravenous 1,512 ml @ 63 mls/hr TPN CONT IV Last administered on 07/06/19at 22:06; Start 07/06/19 at 22:00; Stop 07/07/19 at 21:59; Status DC Calcium Carbonate/ Glycine (Tums) 500 mg PRN [id number] PRN PO INDIGESTION; Start 07/06/19 at 17:45; Stop 08/31/19 at 10:25; Status DC Calcium Gluconate (Calcium Gluconate) 2,000 mg 1X ONCE IVP Last administered on 07/07/19at 02:19; Start 07/07/19 at 02:15; Stop 07/07/19 at 02:16; Status DC Calcium Chloride 3000 mg/Sodium Chloride 1,030 ml @ 50 mls/hr [id number] IV Last administered on 07/09/19at 02:17; Start 07/07/19 at 08:00; Stop 07/09/19 at 15:23; Status DC Lorazepam (Ativan Inj) 1 mg PRN Q4HRS PRN IVP ANXIETY / AGITATION, 2nd choic Last administered on 08/05/19at 03:51; Start 07/07/19 at 09:00; Stop 08/05/19 at 09:19; Status DC Sodium Chloride 1,000 ml @ 1,000 mls/hr Q1H PRN IV hypotension; Start 07/07/19 at 08:56; Stop 07/07/19 at 14:55; Status DC Albumin Human 200 ml @ 200 mls/hr 1X PRN PRN IV Hypotension; Start 07/07/19 at 09:00; Stop 07/07/19 at 14:59; Status DC Diphenhydramine HCl (Benadryl) 25 mg 1X PRN PRN IV ITCHING; Start 07/07/19 at 09:00; Stop 07/08/19 at 08:59; Status DC Diphenhydramine HCl (Benadryl) 25 mg 1X PRN PRN IV ITCHING; Start 07/07/19 at 09:00; Stop 07/08/19 at 08:59; Status DC Sodium Chloride 1,000 ml @ 400 mls/hr Q2H30M PRN IV PATENCY; Start 07/07/19 at 08:56; Stop 07/07/19 at 20:55; Status DC Info (PHARMACY MONITORING -- do not chart) 1 each PRN DAILY PRN MC SEE COMMENTS; Start 07/07/19 at 09:00; Status UNV Info (PHARMACY MONITORING -- do not chart) 1 each PRN DAILY PRN MC SEE COMMENTS; Start 07/07/19 at 09:00; Stop 07/08/19 at 08:13; Status DC Digoxin (Lanoxin) 500 mcg 1X ONCE IV Last administered on 07/07/19at 10:04; Start 07/07/19 at 10:00; Stop 07/07/19 at 10:01; Status DC Digoxin (Lanoxin) 125 mcg 1X ONCE IV Last administered on 07/07/19at 17:10; Start 07/07/19 at 18:00; Stop 07/07/19 at 18:01; Status DC Magnesium Sulfate 100 ml @ 25 mls/hr 1X ONCE IV Last administered on 07/07/19at 12:48; Start 07/07/19 at 13:00; Stop 07/07/19 at 16:59; Status DC Sodium Chloride 90 meq/Magnesium Sulfate 10 meq/ Calcium Gluconate 20 meq/ Multivitamins 10 ml/Chromium/ Copper/Manganese/ Seleni/Zn 0.5 ml/ Total Parenteral Nutrition/Amino Acids/Dextrose/ Fat Emulsion Intravenous 1,512 ml @ 63 mls/hr TPN CONT IV Last administered on 07/07/19at 22:25; Start 07/07/19 at 22:00; Stop 07/08/19 at 21:59; Status DC Sodium Chloride 1,000 ml @ 1,000 mls/hr Q1H PRN IV hypotension; Start 07/08/19 at 08:05; Stop 07/08/19 at 14:04; Status DC Albumin Human 200 ml @ 200 mls/hr 1X ONCE IV Last administered on 07/08/19at 08:57; Start 07/08/19 at 08:15; Stop 07/08/19 at 09:14; Status DC Diphenhydramine HCl (Benadryl) 25 mg 1X PRN PRN IV ITCHING; Start 07/08/19 at 08:15; Stop 07/09/19 at 08:14; Status DC Diphenhydramine HCl (Benadryl) 25 mg 1X PRN PRN IV ITCHING; Start 07/08/19 at 08:15; Stop 07/09/19 at 08:14; Status DC Sodium Chloride 1,000 ml @ 400 mls/hr Q2H30M PRN IV PATENCY; Start 07/08/19 at 08:05; Stop 07/08/19 at 20:04; Status DC Info (PHARMACY MONITORING -- do not chart) 1 each PRN DAILY PRN MC SEE COMMENTS; Start 07/08/19 at 08:15; Stop 07/12/19 at 07:57; Status DC Sodium Chloride 90 meq/Potassium Chloride 15 meq/ Potassium Phosphate 10 mmol/ Magnesium Sulfate 10 meq/Calcium Gluconate 20 meq/ Multivitamins 10 ml/Chromium/ Copper/Manganese/ Seleni/Zn 0.5 ml/ Total Parenteral Nutrition/Amino Acids/Dextrose/ Fat Emulsion Intravenous 1,512 ml @ 63 mls/hr TPN CONT IV Last administered on 07/08/19at 21:01; Start 07/08/19 at 22:00; Stop 07/09/19 at 21:59; Status DC Potassium Chloride/Water 100 ml @ 100 mls/hr 1X ONCE IV Last administered on 07/08/19at 14:09; Start 07/08/19 at 14:00; Stop 07/08/19 at 14:59; Status DC Benzocaine (Hurricaine One) 1 spray 1X ONCE MM Last administered on 07/08/19at 16:38; Start 07/08/19 at 14:30; Stop 07/08/19 at 14:31; Status DC Lidocaine HCl (Glydo (Lidocaine) Jelly) 1 ramu 1X ONCE MM Last administered on 07/08/19at 16:38; Start 07/08/19 at 14:30; Stop 07/08/19 at 14:31; Status DC Linezolid/Dextrose 300 ml @ 300 mls/hr Q12HR IV Last administered on 07/14/19at 21:04; Start 07/08/19 at 20:00; Stop 07/15/19 at 07:50; Status DC Acetaminophen (Tylenol) 650 mg PRN Q6HRS PRN PO MILD PAIN / TEMP; Start 0 at 03:30; Stop 07/09/19 at 03:36; Status DC Acetaminophen (Tylenol) 650 mg PRN Q6HRS PRN PEG MILD PAIN / TEMP Last administered on 08/04/19at 19:56; Start 07/09/19 at 03:36; Stop 08/31/19 at 10:25; Status DC Sodium Chloride 1,000 ml @ 1,000 mls/hr Q1H PRN IV hypotension; Start 07/09/19 at 07:50; Stop 07/09/19 at 13:49; Status DC Albumin Human 200 ml @ 200 mls/hr 1X PRN PRN IV Hypotension; Start 07/09/19 at 08:00; Stop 07/09/19 at 13:59; Status DC Sodium Chloride (Normal Saline Flush) 10 ml 1X PRN PRN IV AP catheter pack; Start 07/09/19 at 08:00; Stop 07/10/19 at 07:59; Status DC Sodium Chloride (Normal Saline Flush) 10 ml 1X PRN PRN IV PULL THROUGH HOOKER catheter pack; Start 07/09/19 at 08:00; Stop 07/10/19 at 07:59; Status DC Sodium Chloride 1,000 ml @ 400 mls/hr Q2H30M PRN IV PATENCY; Start 07/09/19 at 07:50; Stop 07/09/19 at 19:49; Status DC Info (PHARMACY MONITORING -- do not chart) 1 each PRN DAILY PRN MC SEE COMMENTS; Start 07/09/19 at 08:00; Status UNV Info (PHARMACY MONITORING -- do not chart) 1 each PRN DAILY PRN MC SEE COMMENTS; Start 07/09/19 at 08:00; Stop 07/11/19 at 08:25; Status DC Sodium Chloride 90 meq/Potassium Chloride 15 meq/ Potassium Phosphate 10 mmol/ Magnesium Sulfate 10 meq/Calcium Gluconate 20 meq/ Multivitamins 10 ml/Chromium/ Copper/Manganese/ Seleni/Zn 0.5 ml/ Total Parenteral Nutrition/Amino Acids/Dextrose/ Fat Emulsion Intravenous 1,512 ml @ 63 mls/hr TPN CONT IV Last administered on 07/09/19at 20:57; Start 07/09/19 at 22:00; Stop 07/10/19 at 21:59; Status DC Sodium Chloride 90 meq/Potassium Chloride 15 meq/ Potassium Phosphate 15 mmol/ Magnesium Sulfate 10 meq/Calcium Gluconate 20 meq/ Multivitamins 10 ml/Chromium/ Copper/Manganese/ Seleni/Zn 0.5 ml/ Total Parenteral Nutrition/Amino Acids/Dextrose/ Fat Emulsion Intravenous 1,512 ml @ 63 mls/hr TPN CONT IV ; Start 07/10/19 at 22:00; Stop 07/10/19 at 14:16; Status DC Sodium Chloride 90 meq/Potassium Chloride 15 meq/ Potassium Phosphate 15 mmol/ Magnesium Sulfate 10 meq/Calcium Gluconate 20 meq/ Multivitamins 10 ml/Chromium/ Copper/Manganese/ Seleni/Zn 0.5 ml/ Total Parenteral Nutrition/Amino Acids/Dextrose/ Fat Emulsion Intravenous 1,200 ml @ 50 mls/hr TPN CONT IV ; Start 07/10/19 at 22:00; Stop 07/10/19 at 14:17; Status DC Sodium Chloride 90 meq/Potassium Chloride 15 meq/ Potassium Phosphate 10 mmol/ Magnesium Sulfate 10 meq/Calcium Gluconate 20 meq/ Multivitamins 10 ml/Chromium/ Copper/Manganese/ Seleni/Zn 0.5 ml/ Total Parenteral Nutrition/Amino Acids/Dextrose/ Fat Emulsion Intravenous 1,200 ml @ 50 mls/hr TPN CONT IV Last administered on 07/10/19at 23:29; Start 07/10/19 at 22:00; Stop 07/11/19 at 21:59; Status DC Sodium Chloride 1,000 ml @ 1,000 mls/hr Q1H PRN IV hypotension; Start 07/11/19 at 07:28; Stop 07/11/19 at 13:27; Status DC Albumin Human 200 ml @ 200 mls/hr 1X ONCE IV Last administered on 07/11/19at 08:51; Start 07/11/19 at 07:30; Stop 07/11/19 at 08:29; Status DC Diphenhydramine HCl (Benadryl) 25 mg 1X PRN PRN IV ITCHING; Start 07/11/19 at 07:30; Stop 07/12/19 at 07:29; Status DC Diphenhydramine HCl (Benadryl) 25 mg 1X PRN PRN IV ITCHING; Start 07/11/19 at 07:30; Stop 07/12/19 at 07:29; Status DC Sodium Chloride 1,000 ml @ 400 mls/hr Q2H30M PRN IV PATENCY; Start 07/11/19 at 07:28; Stop 07/11/19 at 19:27; Status DC Info (PHARMACY MONITORING -- do not chart) 1 each PRN DAILY PRN MC SEE COMMENTS; Start 07/11/19 at 07:30; Stop 07/22/19 at 13:01; Status DC Metronidazole 100 ml @ 100 mls/hr Q6HRS IV Last administered on 07/27/19at 06:26; Start 07/11/19 at 08:30; Stop 07/27/19 at 09:58; Status DC Micafungin Sodium 100 mg/Dextrose 100 ml @ 100 mls/hr Q24H IV Last administered on 08/18/19at 08:18; Start 07/11/19 at 09:00; Stop 08/18/19 at 20:58; Status DC Propofol 0 ml @ As Directed STK-MED ONCE IV ; Start 07/11/19 at 07:53; Stop 07/11/19 at 07:53; Status DC Etomidate (Amidate) 20 mg STK-MED ONCE IV ; Start 07/11/19 at 07:53; Stop 07/11/19 at 07:54; Status DC Midazolam HCl (Versed) 5 mg STK-MED ONCE .ROUTE ; Start 07/11/19 at 07:57; Stop 07/11/19 at 07:57; Status DC Fentanyl Citrate 30 ml @ 0 mls/hr CONT PRN IV SEE PROTOCOL Last administered on 08/05/19at 06:12; Start 07/11/19 at 08:15; Stop 08/05/19 at 09:19; Status DC Artificial Tears (Artificial Tears) 1 drop PRN Q1HR PRN OU DRY EYE, 1st choice; Start 07/11/19 at 08:15; Stop 08/17/19 at 05:31; Status DC Midazolam HCl 50 mg/Sodium Chloride 50 ml @ 0 mls/hr CONT PRN IV SEE PROTOCOL Last administered on 07/14/19at 22:39; Start 07/11/19 at 08:15; Stop 07/16/19 at 15:59; Status DC Etomidate (Amidate) 8 mg 1X ONCE IV Last administered on 07/11/19at 08:33; Start 07/11/19 at 08:30; Stop 07/11/19 at 08:31; Status DC Succinylcholine Chloride (Anectine) 120 mg 1X ONCE IV Last administered on 07/11/19at 08:34; Start 07/11/19 at 08:30; Stop 07/11/19 at 08:31; Status DC Midazolam HCl (Versed) 5 mg 1X ONCE IV ; Start 07/11/19 at 08:30; Stop 07/11/19 at 08:31; Status DC Potassium Chloride 15 meq/ Bicarbonate Dialysis Soln w/ out KCl 5,007.5 ml @ 1,000 mls/ hr Q5H1M IV Last administered on 07/12/19at 11:11; Start 07/11/19 at 12:00; Stop 07/12/19 at 11:15; Status DC Potassium Chloride 15 meq/ Bicarbonate Dialysis Soln w/ out KCl 5,007.5 ml @ 1,000 mls/ hr Q5H1M IV Last administered on 07/12/19at 11:12; Start 07/11/19 at 12:00; Stop 07/12/19 at 11:17; Status DC Potassium Chloride 15 meq/ Bicarbonate Dialysis Soln w/ out KCl 5,007.5 ml @ 1,000 mls/ hr Q5H1M IV Last administered on 07/12/19at 11:11; Start 07/11/19 at 12:00; Stop 07/12/19 at 11:19; Status DC Sodium Chloride 90 meq/Potassium Chloride 15 meq/ Potassium Phosphate 10 mmol/ Magnesium Sulfate 10 meq/Calcium Gluconate 20 meq/ Multivitamins 10 ml/Chromium/ Copper/Manganese/ Seleni/Zn 0.5 ml/ Total Parenteral Nutrition/Amino Acids /Dextrose/ Fat Emulsion Intravenous 1,400 ml @ 58.333 mls/ hr TPN CONT IV Last administered on 07/11/19at 21:42; Start 07/11/19 at 22:00; Stop 07/12/19 at 21:59; Status DC Heparin Sodium (Porcine) (Heparin Sodium) 5,000 unit Q8HRS SQ Last administered on 07/16/19at 05:55; Start 07/11/19 at 15:00; Stop 07/16/19 at 13:28; Status DC Meropenem 500 mg/ Sodium Chloride 50 ml @ 100 mls/hr Q6HRS IV Last administered on 07/13/19at 06:00; Start 07/12/19 at 09:00; Stop 07/13/19 at 07:29; Status DC Potassium Phosphate 20 mmol/ Sodium Chloride 106.6667 ml @ 51.667 m... 1X ONCE IV Last administered on 07/12/19at 11:22; Start 07/12/19 at 10:15; Stop 07/12/19 at 12:18; Status DC Acetaminophen (Tylenol Supp) 650 mg PRN Q6HRS PRN [place] MILD PAIN / TEMP > 100.3'F Last administered on 10/06/19at 10:16; Start 07/12/19 at 10:30 Potassium Chloride/Water 100 ml @ 100 mls/hr Q1H IV Last administered on 07/12/19at 12:12; Start 07/12/19 at 11:00; Stop 07/12/19 at 12:59; Status DC Potassium Chloride 20 meq/ Bicarbonate Dialysis Soln w/ out KCl 5,010 ml @ 1,000 mls/hr Q5H1M IV Last administered on 07/13/19at 08:48; Start 07/12/19 at 12:00; Stop 07/13/19 at 13:03; Status DC Potassium Chloride 20 meq/ Bicarbonate Dialysis Soln w/ out KCl 5,010 ml @ 1,000 mls/hr Q5H1M IV Last administered on 07/17/19at 14:52; Start 07/12/19 at 11:30; Stop 07/17/19 at 19:59; Status DC Potassium Chloride 20 meq/ Bicarbonate Dialysis Soln w/ out KCl 5,010 ml @ 1,000 mls/hr Q5H1M IV Last administered on 07/17/19at 14:53; Start 07/12/19 at 11:30; Stop 07/17/19 at 19:59; Status DC Sodium Chloride 90 meq/Potassium Chloride 15 meq/ Potassium Phosphate 15 mmol/ Magnesium Sulfate 10 meq/Calcium Gluconate 15 meq/ Multivitamins 10 ml/Chromium/ Copper/Manganese/ Seleni/Zn 0.5 ml/ Total Parenteral Nutrition/Amino Acids/Dextrose/ Fat Emulsion Intravenous 1,400 ml @ 58.333 mls/ hr TPN CONT IV Last administered on 07/12/19at 22:17; Start 07/12/19 at 22:00; Stop 07/13/19 at 21:59; Status DC Cefepime HCl (Maxipime) 2 gm Q12HR IVP Last administered on 07/26/19at 20:56; Start 07/13/19 at 09:00; Stop 07/27/19 at 09:58; Status DC Daptomycin 500 mg/ Sodium Chloride 50 ml @ 100 mls/hr Q48H IV Last administered on 07/29/19at 09:57; Start 07/13/19 at 08:30; Stop 07/29/19 at 10:07; Status DC Lidocaine HCl (Buffered Lidocaine 1%) 3 ml 1X ONCE INJ Last administered on 07/13/19at 10:27; Start 07/13/19 at 10:30; Stop 07/13/19 at 10:31; Status DC Potassium Phosphate 20 mmol/ Sodium Chloride 106.6667 ml @ 51.667 m... 1X ONCE IV Last administered on 07/13/19at 12:51; Start 07/13/19 at 13:00; Stop 07/13/19 at 15:03; Status DC Sodium Chloride 90 meq/Potassium Chloride 15 meq/ Potassium Phosphate 18 mmol/ Magnesium Sulfate 8 meq/Calcium Gluconate 15 meq/ Multivitamins 10 ml/Chromium/ Copper/Manganese/ Seleni/Zn 0.5 ml/ Total Parenteral Nutrition/Amino Acids/Dextrose/ Fat Emulsion Intravenous 1,400 ml @ 58.333 mls/ hr TPN CONT IV Last administered on 07/13/19at 22:16; Start 07/13/19 at 22:00; Stop 07/14/19 at 21:59; Status DC Potassium Chloride 20 meq/ Bicarbonate Dialysis Soln w/ out KCl 5,010 ml @ 1,000 mls/hr Q5H1M IV Last administered on 07/17/19at 14:54; Start 07/13/19 at 16:00; Stop 07/17/19 at 19:59; Status DC Multi-Ingred Cream/Lotion/Oil/ Oint (Artificial Tears Eye Ointment) 1 ramu PRN Q1HR PRN OU DRY EYE, 2nd choice Last administered on 08/01/19at 08:19; Start 07/13/19 at 17:30; Stop 09/21/19 at 14:39; Status DC Sodium Chloride 90 meq/Potassium Chloride 15 meq/ Potassium Phosphate 18 mmol/ Magnesium Sulfate 8 meq/Calcium Gluconate 15 meq/ Multivitamins 10 ml/Chromium/ Copper/Manganese/ Seleni/Zn 0.5 ml/ Total Parenteral Nutrition/Amino Acids/Dextrose/ Fat Emulsion Intravenous 1,400 ml @ 58.333 mls/ hr TPN CONT IV Last administered on 07/14/19at 22:00; Start 07/14/19 at 22:00; Stop 07/15/19 at 21:59; Status DC Albumin Human 500 ml @ 125 mls/hr 1X ONCE IV ; Start 07/14/19 at 14:15; Stop 07/14/19 at 18:14; Status DC Sodium Chloride 90 meq/Potassium Chloride 15 meq/ Potassium Phosphate 18 mmol/ Magnesium Sulfate 8 meq/Calcium Gluconate 15 meq/ Multivitamins 10 ml/Chromium/ Copper/Manganese/ Seleni/Zn 0.5 ml/ Insulin Human Regular 10 unit/ Total Parenteral Nutrition/Amino Acids/Dextrose/ Fat Emulsion Intravenous 1,400 ml @ 58.333 mls/ hr TPN CONT IV Last administered on 07/15/19at 21:43; Start 07/15/19 at 22:00; Stop 07/16/19 at 21:59; Status DC Lidocaine HCl (Buffered Lidocaine 1%) 3 ml STK-MED ONCE .ROUTE ; Start 07/13/19 at 10:00; Stop 07/15/19 at 13:57; Status DC Midazolam HCl 100 mg/Sodium Chloride 100 ml @ 7 mls/hr CONT PRN IV SEE PROTOCOL Last administered on 07/27/19at 15:35; Start 07/16/19 at 16:00; Stop 09/21/19 at 14:38; Status DC Sodium Chloride 90 meq/Potassium Chloride 15 meq/ Potassium Phosphate 18 mmol/ Magnesium Sulfate 8 meq/Calcium Gluconate 15 meq/ Multivitamins 10 ml/Chromium/ Copper/Manganese/ Seleni/Zn 0.5 ml/ Insulin Human Regular 15 unit/ Total Parenteral Nutrition/Amino Acids/Dextrose/ Fat Emulsion Intravenous 1,400 ml @ 58.333 mls/ hr TPN CONT IV Last administered on 07/16/19at 20:34; Start 07/16/19 at 22:00; Stop 07/17/19 at 21:59; Status DC Info (Icu Electrolyte Protocol) 1 ea CONT PRN PRN MC PER PROTOCOL; Start 07/17/19 at 13:15 Sodium Chloride 90 meq/Potassium Chloride 15 meq/ Potassium Phosphate 18 mmol/ Magnesium Sulfate 8 meq/Calcium Gluconate 15 meq/ Multivitamins 10 ml/Chromium/ Copper/Manganese/ Seleni/Zn 0.5 ml/ Insulin Human Regular 15 unit/ Total Parenteral Nutrition/Amino Acids/Dextrose/ Fat Emulsion Intravenous 1,400 ml @ 58.333 mls/ hr TPN CONT IV Last administered on 07/17/19at 22:05; Start 07/17/19 at 22:00; Stop 07/18/19 at 21:59; Status DC Potassium Chloride 15 meq/ Bicarbonate Dialysis Soln w/ out KCl 5,007.5 ml @ 1,000 mls/ hr Q5H1M IV Last administered on 07/20/19at 18:14; Start 07/17/19 at 20:00; Stop 07/21/19 at 13:08; Status DC Potassium Chloride 15 meq/ Bicarbonate Dialysis Soln w/ out KCl 5,007.5 ml @ 1,000 mls/ hr Q5H1M IV Last administered on 07/20/19at 18:14; Start 07/17/19 at 20:00; Stop 07/21/19 at 13:08; Status DC Potassium Chloride 15 meq/ Bicarbonate Dialysis Soln w/ out KCl 5,007.5 ml @ 1,000 mls/ hr Q5H1M IV Last administered on 07/20/19at 18:14; Start 07/17/19 at 20:00; Stop 07/21/19 at 13:08; Status DC Iohexol (Omnipaque 240 Mg/ml) 30 ml 1X ONCE PO Last administered on 07/18/19at 11:30; Start 07/18/19 at 11:30; Stop 07/18/19 at 11:33; Status DC Info (CONTRAST GIVEN -- Rx MONITORING) 1 each PRN DAILY PRN MC SEE COMMENTS; Start 07/18/19 at 11:45; Stop 07/20/19 at 11:44; Status DC Sodium Chloride 90 meq/Potassium Chloride 15 meq/ Potassium Phosphate 18 mmol/ Magnesium Sulfate 8 meq/Calcium Gluconate 15 meq/ Multivitamins 10 ml/Chromium/ Copper/Manganese/ Seleni/Zn 0.5 ml/ Insulin Human Regular 15 unit/ Total Parenteral Nutrition/Amino Acids/Dextrose/ Fat Emulsion Intravenous 1,400 ml @ 58.333 mls/ hr TPN CONT IV Last administered on 07/18/19at 21:47; Start 07/18/19 at 22:00; Stop 07/19/19 at 21:59; Status DC Sodium Chloride 90 meq/Potassium Chloride 15 meq/ Potassium Phosphate 18 mmol/ Magnesium Sulfate 8 meq/Calcium Gluconate 15 meq/ Multivitamins 10 ml/Chromium/ Copper/Manganese/ Seleni/Zn 0.5 ml/ Insulin Human Regular 20 unit/ Total Parenteral Nutrition/Amino Acids/Dextrose/ Fat Emulsion Intravenous 1,400 ml @ 58.333 mls/ hr TPN CONT IV Last administered on 07/19/19at 21:36; Start 07/19/19 at 22:00; Stop 07/20/19 at 21:59; Status DC Alteplase, Recombinant (Cathflo For Central Catheter Clearance) 1 mg 1X ONCE INT CAT Last administered on 07/19/19at 20:03; Start 07/19/19 at 19:30; Stop 07/19/19 at 19:46; Status DC Alteplase, Recombinant (Cathflo For Central Catheter Clearance) 1 mg 1X ONCE INT CAT Last administered on 07/19/19at 22:05; Start 07/19/19 at 22:00; Stop 07/19/19 at 22:01; Status DC Sodium Chloride 90 meq/Potassium Chloride 15 meq/ Potassium Phosphate 18 mmol/ Magnesium Sulfate 8 meq/Calcium Gluconate 15 meq/ Multivitamins 10 ml/Chromium/ Copper/Manganese/ Seleni/Zn 0.5 ml/ Insulin Human Regular 20 unit/ Total Parenteral Nutrition/Amino Acids/Dextrose/ Fat Emulsion Intravenous 1,400 ml @ 58.333 mls/ hr TPN CONT IV Last administered on 07/20/19at 21:30; Start 07/20/19 at 22:00; Stop 07/21/19 at 21:59; Status DC Dexmedetomidine HCl 400 mcg/ Sodium Chloride 100 ml @ 0 mls/hr CONT PRN IV ANXIETY / AGITATION Last administered on 09/17/19at 12:57; Start 07/21/19 at 08:15; Stop 09/17/19 at 18:31; Status DC Sodium Chloride 500 ml @ 500 mls/hr 1X PRN PRN IV ELEVATED BP, SEE COMMENTS; Start 07/21/19 at 08:15 Atropine Sulfate (ATROPINE 0.5mg SYRINGE) 0.5 mg PRN Q5MIN PRN IV SEE COMMENTS; Start 07/21/19 at 08:15 Furosemide (Lasix) 20 mg 1X ONCE IVP Last administered on 07/21/19at 08:19; Start 07/21/19 at 08:15; Stop 07/21/19 at 08:16; Status DC Lidocaine HCl (Buffered Lidocaine 1%) 3 ml STK-MED ONCE .ROUTE ; Start 07/21/19 at 08:39; Stop 07/21/19 at 08:39; Status DC Lidocaine HCl (Buffered Lidocaine 1%) 6 ml 1X ONCE INJ Last administered on 07/21/19at 09:05; Start 07/21/19 at 09:00; Stop 07/21/19 at 09:06; Status DC Sodium Chloride 90 meq/Potassium Chloride 15 meq/ Potassium Phosphate 18 mmol/ Magnesium Sulfate 8 meq/Calcium Gluconate 15 meq/ Multivitamins 10 ml/Chromium/ Copper/Manganese/ Seleni/Zn 0.5 ml/ Insulin Human Regular 20 unit/ Total Parenteral Nutrition/Amino Acids/Dextrose/ Fat Emulsion Intravenous 1,400 ml @ 58.333 mls/ hr TPN CONT IV Last administered on 07/21/19at 22:45; Start 07/21/19 at 22:00; Stop 07/22/19 at 21:59; Status DC Sodium Chloride 1,000 ml @ 1,000 mls/hr Q1H PRN IV hypotension; Start 07/22/19 at 07:30; Stop 07/22/19 at 13:29; Status DC Albumin Human 200 ml @ 200 mls/hr 1X PRN PRN IV Hypotension Last administered on 07/22/19at 09:36; Start 07/22/19 at 07:30; Stop 07/22/19 at 13:29; Status DC Sodium Chloride (Normal Saline Flush) 10 ml 1X PRN PRN IV AP catheter pack; Start 07/22/19 at 07:30; Stop 07/22/19 at 21:29; Status DC Sodium Chloride (Normal Saline Flush) 10 ml 1X PRN PRN IV PULL THROUGH HOOKER catheter pack; Start 07/22/19 at 07:30; Stop 07/23/19 at 07:29; Status DC Sodium Chloride 1,000 ml @ 400 mls/hr Q2H30M PRN IV PATENCY; Start 07/22/19 at 07:30; Stop 07/22/19 at 19:29; Status DC Info (PHARMACY MONITORING -- do not chart) 1 each PRN DAILY PRN MC SEE COMMENTS; Start 07/22/19 at 07:30; Stop 07/22/19 at 13:02; Status DC Info (PHARMACY MONITORING -- do not chart) 1 each PRN DAILY PRN MC SEE COMMENTS; Start 07/22/19 at 07:30; Stop 07/24/19 at 12:45; Status DC Sodium Chloride 90 meq/Potassium Chloride 15 meq/ Potassium Phosphate 10 mmol/ Magnesium Sulfate 8 meq/Calcium Gluconate 15 meq/ Multivitamins 10 ml/Chromium/ Copper/Manganese/ Seleni/Zn 0.5 ml/ Insulin Human Regular 25 unit/ Total Parenteral Nutrition/Amino Acids/Dextrose/ Fat Emulsion Intravenous 1,400 ml @ 58.333 mls/ hr TPN CONT IV Last administered on 07/22/19at 22:19; Start 07/22/19 at 22:00; Stop 07/23/19 at 21:59; Status DC Heparin Sodium (Porcine) (Heparin Sodium) 5,000 unit Q12HR SQ Last administered on 08/14/19at 08:59; Start 07/22/19 at 21:00; Stop 08/14/19 at 10:05; Status DC Ondansetron HCl (Zofran) 4 mg PRN Q6HRS PRN IV NAUSEA/VOMITING; Start 07/25/19 at 07:00; Stop 07/26/19 at 06:59; Status DC Fentanyl Citrate (Fentanyl 2ml Vial) 25 mcg PRN Q5MIN PRN IV MILD PAIN 1-3; Start 07/25/19 at 07:00; Stop 07/26/19 at 06:59; Status DC Fentanyl Citrate (Fentanyl 2ml Vial) 50 mcg PRN Q5MIN PRN IV MODERATE TO SEVERE PAIN; Start 07/25/19 at 07:00; Stop 07/26/19 at 06:59; Status DC Ringer's Solution 1,000 ml @ 30 mls/hr Q24H IV ; Start 07/25/19 at 07:00; Stop 07/25/19 at 18:59; Status DC Lidocaine HCl (Xylocaine-Mpf 1% 2ml Vial) 2 ml PRN 1X PRN ID PRIOR TO IV START; Start 07/25/19 at 07:00; Stop 07/26/19 at 06:59; Status DC Prochlorperazine Edisylate (Compazine) 5 mg PACU PRN PRN IV NAUSEA, MRX1; Start 07/25/19 at 07:00; Stop 07/26/19 at 06:59; Status DC Sodium Chloride 1,000 ml @ 1,000 mls/hr Q1H PRN IV hypotension; Start 07/23/19 at 09:10; Stop 07/23/19 at 15:09; Status DC Albumin Human 200 ml @ 200 mls/hr 1X PRN PRN IV Hypotension Last administered on 07/23/19at 10:10; Start 07/23/19 at 09:15; Stop 07/23/19 at 15:14; Status DC Sodium Chloride 1,000 ml @ 400 mls/hr Q2H30M PRN IV PATENCY; Start 07/23/19 at 09:10; Stop 07/23/19 at 21:09; Status DC Info (PHARMACY MONITORING -- do not chart) 1 each PRN DAILY PRN MC SEE COMMENTS; Start 07/23/19 at 09:15; Stop 07/24/19 at 12:45; Status DC Info (PHARMACY MONITORING -- do not chart) 1 each PRN DAILY PRN MC SEE COMMENTS; Start 07/23/19 at 09:15; Stop 07/24/19 at 12:45; Status DC Sodium Chloride 90 meq/Potassium Chloride 15 meq/ Potassium Phosphate 10 mmol/ Magnesium Sulfate 8 meq/Calcium Gluconate 15 meq/ Multivitamins 10 ml/Chromium/ Copper/Manganese/ Seleni/Zn 0.5 ml/ Insulin Human Regular 25 unit/ Total Parenteral Nutrition/Amino Acids/Dextrose/ Fat Emulsion Intravenous 1,400 ml @ 58.333 mls/ hr TPN CONT IV Last administered on 07/23/19at 22:10; Start 07/23/19 at 22:00; Stop 07/24/19 at 21:59; Status DC Magnesium Sulfate 50 ml @ 25 mls/hr PRN DAILY PRN IV for Mag < 1.7 on am labs Last administered on 10/06/19at 10:57; Start 07/24/19 at 09:15 Sodium Chloride 90 meq/Potassium Chloride 15 meq/ Potassium Phosphate 10 mmol/ Magnesium Sulfate 8 meq/Calcium Gluconate 15 meq/ Multivitamins 10 ml/Chromium/ Copper/Manganese/ Seleni/Zn 0.5 ml/ Insulin Human Regular 25 unit/ Total Parenteral Nutrition/Amino Acids/Dextrose/ Fat Emulsion Intravenous 1,400 ml @ 58.333 mls/ hr TPN CONT IV Last administered on 07/24/19at 21:20; Start 07/24/19 at 22:00; Stop 07/25/19 at 21:59; Status DC Sodium Chloride 1,000 ml @ 1,000 mls/hr Q1H PRN IV hypotension; Start 07/24/19 at 12:23; Stop 07/24/19 at 18:22; Status DC Albumin Human 200 ml @ 200 mls/hr 1X ONCE IV Last administered on 07/24/19at 13:34; Start 07/24/19 at 12:30; Stop 07/24/19 at 13:29; Status DC Diphenhydramine HCl (Benadryl) 25 mg 1X PRN PRN IV ITCHING; Start 07/24/19 at 1 2:30; Stop 07/25/19 at 12:29; Status DC Diphenhydramine HCl (Benadryl) 25 mg 1X PRN PRN IV ITCHING; Start 07/24/19 at 12:30; Stop 07/25/19 at 12:29; Status DC Info (PHARMACY MONITORING -- do not chart) 1 each PRN DAILY PRN MC SEE COMMENTS; Start 07/24/19 at 12:30; Status Cancel Bupivacaine HCl/ Epinephrine Bitart (Sensorcain-Epi 0.5%-1:494402 Mpf) 30 ml STK-MED ONCE .ROUTE Last administered on 07/25/19at 11:44; Start 07/25/19 at 11:00; Stop 07/25/19 at 11:01; Status DC Cellulose (Surgicel Fibrillar 1x2) 1 each STK-MED ONCE .ROUTE ; Start 07/25/19 at 11:00; Stop 07/25/19 at 11:01; Status DC Sodium Chloride 90 meq/Potassium Chloride 15 meq/ Potassium Phosphate 10 mmol/ Magnesium Sulfate 12 meq/Calcium Gluconate 15 meq/ Multivitamins 10 ml/Chromium/ Copper/Manganese/ Seleni/Zn 0.5 ml/ Insulin Human Regular 25 unit/ Total Parenteral Nutrition/Amino Acids/Dextrose/ Fat Emulsion Intravenous 1,400 ml @ 58.333 mls/ hr TPN CONT IV Last administered on 07/25/19at 22:24; Start 07/25/19 at 22:00; Stop 07/26/19 at 21:59; Status DC Propofol 20 ml @ As Directed STK-MED ONCE IV ; Start 07/25/19 at 11:07; Stop 07/25/19 at 11:07; Status DC Cellulose (Surgicel Hemostat 4x8) 1 each STK-MED ONCE .ROUTE Last administered on 07/25/19at 11:44; Start 07/25/19 at 11:55; Stop 07/25/19 at 11:56; Status DC Sevoflurane (Ultane) 60 ml STK-MED ONCE IH ; Start 07/25/19 at 12:46; Stop 07/25/19 at 12:46; Status DC Sodium Chloride 1,000 ml @ 1,000 mls/hr Q1H PRN IV hypotension; Start 07/25/19 at 13:51; Stop 07/25/19 at 19:50; Status DC Albumin Human 200 ml @ 200 mls/hr 1X PRN PRN IV Hypotension Last administered on 07/25/19at 14:51; Start 07/25/19 at 14:00; Stop 07/25/19 at 19:59; Status DC Diphenhydramine HCl (Benadryl) 25 mg 1X PRN PRN IV ITCHING; Start 07/25/19 at 14:00; Stop 07/26/19 at 13:59; Status DC Diphenhydramine HCl (Benadryl) 25 mg 1X PRN PRN IV ITCHING; Start 07/25/19 at 14:00; Stop 07/26/19 at 13:59; Status DC Sodium Chloride 1,000 ml @ 400 mls/hr Q2H30M PRN IV PATENCY; Start 07/25/19 at 13:51; Stop 07/26/19 at 01:50; Status DC Info (PHARMACY MONITORING -- do not chart) 1 each PRN DAILY PRN MC SEE COMMENTS; Start 07/25/19 at 14:00; Stop 07/28/19 at 08:16; Status DC Heparin Sodium (Porcine) (Hep Lock Adult) 500 unit STK-MED ONCE IVP ; Start 07/26/19 at 09:29; Stop 07/26/19 at 09:30; Status DC Sodium Chloride 1,000 ml @ 1,000 mls/hr Q1H PRN IV hypotension; Start 07/26/19 at 10:43; Stop 07/26/19 at 16:42; Status DC Sodium Chloride 1,000 ml @ 400 mls/hr Q2H30M PRN IV PATENCY; Start 07/26/19 at 10:43; Stop 07/26/19 at 22:42; Status DC Info (PHARMACY MONITORING -- do not chart) 1 each PRN DAILY PRN MC SEE COMMENTS; Start 07/26/19 at 10:45; Status UNV Info (PHARMACY MONITORING -- do not chart) 1 each PRN DAILY PRN MC SEE COMMENTS; Start 07/26/19 at 10:45; Status UNV Sodium Chloride 90 meq/Potassium Chloride 15 meq/ Magnesium Sulfate 12 meq/Calcium Gluconate 15 meq/ Multivitamins 10 ml/Chromium/ Copper/Manganese/ Seleni/Zn 0.5 ml/ Insulin Human Regular 25 unit/ Total Parenteral Nutrition/Amino Acids/Dextrose/ Fat Emulsion Intravenous 1,400 ml @ 58.333 mls/ hr TPN CONT IV Last administered on 07/26/19at 22:13; Start 07/26/19 at 22:00; Stop 07/27/19 at 21:59; Status DC Sodium Chloride 1,000 ml @ 1,000 mls/hr Q1H PRN IV hypotension; Start 07/27/19 at 07:50; Stop 07/27/19 at 13:49; Status DC Albumin Human 200 ml @ 200 mls/hr 1X ONCE IV ; Start 07/27/19 at 08:00; Stop 07/27/19 at 08:53; Status DC Diphenhydramine HCl (Benadryl) 25 mg 1X PRN PRN IV ITCHING; Start 07/27/19 at 08:00; Stop 07/28/19 at 07:59; Status DC Diphenhydramine HCl (Benadryl) 25 mg 1X PRN PRN IV ITCHING; Start 07/27/19 at 08:00; Stop 07/28/19 at 07:59; Status DC Info (PHARMACY MONITORING -- do not chart) 1 each PRN DAILY PRN MC SEE COMMENTS; Start 07/27/19 at 08:00; Stop 07/28/19 at 08:16; Status DC Albumin Human 50 ml @ 50 mls/hr 1X ONCE IV ; Start 07/27/19 at 08:53; Stop 07/27/19 at 08:56; Status DC Albumin Human 200 ml @ 50 mls/hr PRN 1X PRN IV HYPOTENSION Last administered on 08/02/19at 11:54; Start 07/27/19 at 09:00; Stop 09/08/19 at 11:14; Status DC Meropenem 500 mg/ Sodium Chloride 50 ml @ 100 mls/hr Q12H IV Last administered on 08/16/19at 10:45; Start 07/27/19 at 10:00; Stop 08/16/19 at 12:37; Status DC Sodium Chloride 90 meq/Magnesium Sulfate 12 meq/ Calcium Gluconate 15 meq/ Multivitamins 10 ml/Chromium/ Copper/Manganese/ Seleni/Zn 0.5 ml/ Insulin Human Regular 25 unit/ Total Parenteral Nutrition/Amino Acids/Dextrose/ Fat Emulsion Intravenous 1,400 ml @ 58.333 mls/ hr TPN CONT IV Last administered on 07/27/19at 21:41; Start 07/27/19 at 22:00; Stop 07/28/19 at 21:59; Status DC Sodium Chloride 1,000 ml @ 1,000 mls/hr Q1H PRN IV hypotension; Start 07/28/19 at 07:58; Stop 07/28/19 at 13:57; Status DC Albumin Human 200 ml @ 200 mls/hr 1X PRN PRN IV Hypotension Last administered on 07/28/19at 09:30; Start 07/28/19 at 08:00; Stop 07/28/19 at 13:59; Status DC Sodium Chloride 1,000 ml @ 400 mls/hr Q2H30M PRN IV PATENCY; Start 07/28/19 at 07:58; Stop 07/28/19 at 19:57; Status DC Info (PHARMACY MONITORING -- do not chart) 1 each PRN DAILY PRN MC SEE COMMENTS; Start 07/28/19 at 08:00; Status Cancel Info (PHARMACY MONITORING -- do not chart) 1 each PRN DAILY PRN MC SEE COMMENTS; Start 07/28/19 at 08:15; Status UNV Sodium Chloride 90 meq/Potassium Phosphate 5 mmol/ Magnesium Sulfate 12 meq/Calcium Gluconate 15 meq/ Multivitamins 10 ml/Chromium/ Copper/Manganese/ Seleni/Zn 0.5 ml/ Insulin Human Regular 30 unit/ Total Parenteral Nutrition/Amino Acids/Dextrose/ Fat Emulsion Intravenous 1,400 ml @ 58.333 mls/ hr TPN CONT IV Last administered on 07/28/19at 22:08; Start 07/28/19 at 22:00; Stop 07/29/19 at 21:59; Status DC Linezolid/Dextrose 300 ml @ 300 mls/hr Q12HR IV Last administered on 08/08/19at 20:40; Start 07/29/19 at 11:00; Stop 08/09/19 at 08:10; Status DC Sodium Chloride 90 meq/Potassium Phosphate 15 mmol/ Magnesium Sulfate 12 meq/Calcium Gluconate 15 meq/ Multivitamins 10 ml/Chromium/ Copper/Manganese/ Seleni/Zn 0.5 ml/ Insulin Human Regular 30 unit/ Total Parenteral Nutrition/Amino Acids/Dextrose/ Fat Emulsion Intravenous 1,400 ml @ 58.333 mls/ hr TPN CONT IV Last administered on 07/29/19at 21:49; Start 07/29/19 at 22:00; Stop 07/30/19 at 21:59; Status DC Sodium Chloride 90 meq/Potassium Phosphate 15 mmol/ Magnesium Sulfate 12 meq/Calcium Gluconate 15 meq/ Multivitamins 10 ml/Chromium/ Copper/Manganese/ Seleni/Zn 0.5 ml/ Insulin Human Regular 40 unit/ Total Parenteral Nutrition/Amino Acids/Dextrose/ Fat Emulsion Intravenous 1,400 ml @ 58.333 mls/ hr TPN CONT IV Last administered on 07/30/19at 21:21; Start 07/30/19 at 22:00; Stop 07/31/19 at 21:59; Status DC Sodium Chloride 1,000 ml @ 1,000 mls/hr Q1H PRN IV hypotension; Start 07/30/19 at 13:26; Stop 07/30/19 at 19:25; Status DC Albumin Human 200 ml @ 200 mls/hr 1X PRN PRN IV Hypotension Last administered on 07/30/19at 15:00; Start 07/30/19 at 13:30; Stop 07/30/19 at 19:29; Status DC Sodium Chloride (Normal Saline Flush) 10 ml 1X PRN PRN IV AP catheter pack; Start 07/30/19 at 13:30; Stop 07/31/19 at 13:29; Status DC Sodium Chloride (Normal Saline Flush) 10 ml 1X PRN PRN IV PULL THROUGH HOOKER catheter pack; Start 07/30/19 at 13:30; Stop 07/31/19 at 13:29; Status DC Sodium Chloride 1,000 ml @ 400 mls/hr Q2H30M PRN IV PATENCY; Start 07/30/19 at 13:26; Stop 07/31/19 at 01:25; Status DC Info (PHARMACY MONITORING -- do not chart) 1 each PRN DAILY PRN MC SEE COMMENTS; Start 07/30/19 at 13:30; Stop 07/30/19 at 13:33; Status DC Info (PHARMACY MONITORING -- do not chart) 1 each PRN DAILY PRN MC SEE COMMENTS; Start 07/30/19 at 13:30; Stop 07/30/19 at 13:34; Status DC Sodium Chloride 90 meq/Potassium Phosphate 19 mmol/ Magnesium Sulfate 12 meq/Calcium Gluconate 15 meq/ Multivitamins 10 ml/Chromium/ Copper/Manganese/ Seleni/Zn 0.5 ml/ Insulin Human Regular 40 unit/ Total Parenteral N utrition/Amino Acids/Dextrose/ Fat Emulsion Intravenous 1,400 ml @ 58.333 mls/ hr TPN CONT IV Last administered on 07/31/19at 21:54; Start 07/31/19 at 22:00; Stop 08/01/19 at 21:59; Status DC Sodium Chloride 1,000 ml @ 1,000 mls/hr Q1H PRN IV hypotension; Start 08/01/19 at 09:35; Stop 08/01/19 at 15:34; Status DC Albumin Human 200 ml @ 200 mls/hr 1X PRN PRN IV Hypotension; Start 08/01/19 at 09:45; Stop 08/01/19 at 15:44; Status DC Diphenhydramine HCl (Benadryl) 25 mg 1X PRN PRN IV ITCHING; Start 08/01/19 at 09:45; Stop 08/02/19 at 09:44; Status DC Diphenhydramine HCl (Benadryl) 25 mg 1X PRN PRN IV ITCHING; Start 08/01/19 at 09:45; Stop 08/02/19 at 09:44; Status DC Sodium Chloride 1,000 ml @ 400 mls/hr Q2H30M PRN IV PATENCY; Start 08/01/19 at 09:35; Stop 08/01/19 at 21:34; Status DC Info (PHARMACY MONITORING -- do not chart) 1 each PRN DAILY PRN MC SEE COMMENTS; Start 08/01/19 at 09:45; Status Cancel Sodium Chloride 100 meq/Potassium Phosphate 19 mmol/ Magnesium Sulfate 12 meq/Calcium Gluconate 15 meq/ Multivitamins 10 ml/Chromium/ Copper/Manganese/ Seleni/Zn 0.5 ml/ Insulin Human Regular 40 unit/ Potassium Chloride 20 meq/ Total Parenteral Nutrition/Amino Acids/Dextrose/ Fat Emulsion Intravenous 1,400 ml @ 58.333 mls/ hr TPN CONT IV Last administered on 08/01/19at 22:02; Start 08/01/19 at 22:00; Stop 08/02/19 at 21:59; Status DC Furosemide (Lasix) 40 mg 1X ONCE IVP Last administered on 08/01/19at 14:39; Start 08/01/19 at 14:30; Stop 08/01/19 at 14:31; Status DC Metronidazole 100 ml @ 100 mls/hr Q8HRS IV Last administered on 08/09/19at 06:04; Start 08/02/19 at 10:00; Stop 08/09/19 at 08:10; Status DC Sodium Chloride 1,000 ml @ 1,000 mls/hr Q1H PRN IV hypotension; Start 08/02/19 at 08:00; Stop 08/02/19 at 13:59; Status DC Albumin Human 200 ml @ 200 mls/hr 1X PRN PRN IV Hypotension; Start 08/02/19 at 08:00; Stop 08/02/19 at 13:59; Status DC Sodium Chloride 1,000 ml @ 400 mls/hr Q2H30M PRN IV PATENCY; Start 08/02/19 at 08:00; Stop 08/02/19 at 19:59; Status DC Info (PHARMACY MONITORING -- do not chart) 1 each PRN DAILY PRN MC SEE COMMENTS; Start 08/02/19 at 11:30; Status UNV Info (PHARMACY MONITORING -- do not chart) 1 each PRN DAILY PRN MC SEE COMMENTS; Start 08/02/19 at 11:30; Stop 08/04/19 at 12:13; Status DC Sodium Chloride 100 meq/Potassium Phosphate 19 mmol/ Magnesium Sulfate 12 meq/Calcium Gluconate 15 meq/ Multivitamins 10 ml/Chromium/ Copper/Manganese/ Seleni/Zn 0.5 ml/ Insulin Human Regular 40 unit/ Potassium Chloride 20 meq/ Total Parenteral Nutrition/Amino Acids/Dextrose/ Fat Emulsion Intravenous 1,400 ml @ 58.333 mls/ hr TPN CONT IV Last administered on 08/02/19at 21:52; Start 08/02/19 at 22:00; Stop 08/03/19 at 21:59; Status DC Sodium Chloride (Normal Saline Flush) 10 ml QSHIFT PRN IV AFTER MEDS AND BLOOD DRAWS; Start 08/02/19 at 15:00; Stop 08/30/19 at 11:27; Status DC Sodium Chloride (Normal Saline Flush) 10 ml PRN Q5MIN PRN IV AFTER MEDS AND BLOOD DRAWS; Start 08/02/19 at 15:00 Sodium Chloride (Normal Saline Flush) 20 ml PRN Q5MIN PRN IV AFTER MEDS AND BLOOD DRAWS; Start 08/02/19 at 15:00 Sodium Chloride 100 meq/Potassium Phosphate 19 mmol/ Magnesium Sulfate 12 meq/Calcium Gluconate 15 meq/ Multivitamins 10 ml/Chromium/ Copper/Manganese/ Seleni/Zn 0.5 ml/ Insulin Human Regular 40 unit/ Potassium Chloride 20 meq/ Tot al Parenteral Nutrition/Amino Acids/Dextrose/ Fat Emulsion Intravenous 1,400 ml @ 58.333 mls/ hr TPN CONT IV Last administered on 08/03/19at 21:20; Start 08/03/19 at 22:00; Stop 08/04/19 at 21:59; Status DC Lidocaine HCl (Buffered Lidocaine 1%) 3 ml STK-MED ONCE .ROUTE ; Start 08/03/19 at 13:16; Stop 08/03/19 at 13:16; Status DC Lidocaine HCl (Buffered Lidocaine 1%) 6 ml 1X ONCE INJ Last administered on 08/03/19at 13:45; Start 08/03/19 at 13:30; Stop 08/03/19 at 13:31; Status DC Albumin Human 100 ml @ 100 mls/hr 1X ONCE IV Last administered on 08/03/19at 15:41; Start 08/03/19 at 15:00; Stop 08/03/19 at 15:59; Status DC Albumin Human 50 ml @ 50 mls/hr 1X ONCE IV Last administered on 08/03/19at 15:00; Start 08/03/19 at 15:00; Stop 08/03/19 at 15:59; Status DC Info (PHARMACY MONITORING -- do not chart) 1 each PRN DAILY PRN MC SEE COMMENTS; Start 08/04/19 at 11:30; Status Cancel Info (PHARMACY MONITORING -- do not chart) 1 each PRN DAILY PRN MC SEE COMMENTS; Start 08/04/19 at 11:30; Status UNV Sodium Chloride 100 meq/Potassium Phosphate 10 mmol/ Magnesium Sulfate 12 meq/Calcium Gluconate 15 meq/ Multivitamins 10 ml/Chromium/ Copper/Manganese/ Seleni/Zn 0.5 ml/ Insulin Human Regular 35 unit/ Potassium Chloride 20 meq/ Total Parenteral Nutrition/Amino Acids/Dextrose/ Fat Emulsion Intravenous 1,400 ml @ 58.333 mls/ hr TPN CONT IV Last administered on 08/04/19at 22:10; Start 08/04/19 at 22:00; Stop 08/05/19 at 21:59; Status DC Sodium Chloride 100 meq/Potassium Phosphate 5 mmol/ Magnesium Sulfate 12 me q/Calcium Gluconate 15 meq/ Multivitamins 10 ml/Chromium/ Copper/Manganese/ Seleni/Zn 0.5 ml/ Insulin Human Regular 35 unit/ Potassium Chloride 20 meq/ Total Parenteral Nutrition/Amino Acids/Dextrose/ Fat Emulsion Intravenous 1,400 ml @ 58.333 mls/ hr TPN CONT IV Last administered on 08/05/19at 22:59; Start 08/05/19 at 22:00; Stop 08/06/19 at 21:59; Status DC Sodium Chloride 1,000 ml @ 1,000 mls/hr Q1H PRN IV hypotension; Start 08/06/19 at 08:27; Stop 08/06/19 at 14:26; Status DC Albumin Human 200 ml @ 200 mls/hr 1X PRN PRN IV Hypotension Last administered on 08/06/19at 09:18; Start 08/06/19 at 08:30; Stop 08/06/19 at 14:29; Status DC Sodium Chloride 1,000 ml @ 400 mls/hr Q2H30M PRN IV PATENCY; Start 08/06/19 at 08:27; Stop 08/06/19 at 20:26; Status DC Info (PHARMACY MONITORING -- do not chart) 1 each PRN DAILY PRN MC SEE COMMENTS; Start 08/06/19 at 08:30; Status Cancel Info (PHARMACY MONITORING -- do not chart) 1 each PRN DAILY PRN MC SEE COMMENTS; Start 08/06/19 at 08:30; Stop 08/14/19 at 13:10; Status DC Sodium Chloride 100 meq/Potassium Chloride 40 meq/ Magnesium Sulfate 15 meq/Calcium Gluconate 15 meq/ Multivitamins 10 ml/Chromium/ Copper/Manganese/ Seleni/Zn 0.5 ml/ Insulin Human Regular 35 unit/ Total Parenteral Nutrition/Amino Acids/Dextrose/ Fat Emulsion Intravenous 1,400 ml @ 58.333 mls/ hr TPN CONT IV Last administered on 08/06/19at 22:00; Start 08/06/19 at 22:00; Stop 08/07/19 at 21:59; Status DC Potassium Chloride/Water 100 ml @ 100 mls/hr 1X ONCE IV Last administered on 08/06/19at 17:28; Start 08/06/19 at 14:45; Stop 08/06/19 at 15:44; Status DC Sodium Chloride 100 meq/Potassium Chloride 40 meq/ Magnesium Sulfate 15 meq/Calcium Gluconate 15 meq/ Multivitamins 10 ml/Chromium/ Copper/Manganese/ Seleni/Zn 0.5 ml/ Insulin Human Regular 35 unit/ Total Parenteral Nutrition/Amino Acids/Dextrose/ Fat Emulsion Intravenous 1,400 ml @ 58.333 mls/ hr TPN CONT IV Last administered on 08/07/19at 22:46; Start 08/07/19 at 22:00; Stop 08/08/19 at 21:59; Status DC Sodium Chloride 100 meq/Potassium Chloride 40 meq/ Magnesium Sulfate 20 meq/Calcium Gluconate 15 meq/ Multivitamins 10 ml/Chromium/ Copper/Manganese/ Seleni/Zn 0.5 ml/ Insulin Human Regular 35 unit/ Total Parenteral Nutrition/Amino Acids/Dextrose/ Fat Emulsion Intravenous 1,400 ml @ 58.333 mls/ hr TPN CONT IV Last administered on 08/08/19at 22:31; Start 08/08/19 at 22:00; Stop 08/09/19 at 21:59; Status DC Fentanyl Citrate (Fentanyl 2ml Vial) 50 mcg PRN Q2HR PRN IVP PAIN Last administered on 08/15/19at 13:32; Start 08/08/19 at 21:00; Stop 08/16/19 at 12:53; Status DC Fentanyl Citrate (Fentanyl 2ml Vial) 25 mcg PRN Q2HR PRN IVP PAIN; Start 08/08/19 at 21:00; Stop 08/16/19 at 12:54; Status DC Enoxaparin Sodium (Lovenox 100mg Syringe) 100 mg Q12HR SQ ; Start 08/09/19 at 21:00; Status UNV Amino Acids/ Glycerin/ Electrolytes 1,000 ml @ 75 mls/hr [id number] IV ; Start 08/08/19 at 21:15; Status UNV Sodium Chloride 1,000 ml @ 1,000 mls/hr Q1H PRN IV hypotension; Start 08/09/19 at 07:56; Stop 08/09/19 at 13:55; Status DC Albumin Human 200 ml @ 200 mls/hr 1X PRN PRN IV Hypotension Last administered on 08/09/19at 08:40; Start 08/09/19 at 08:00; Stop 08/09/19 at 13:59; Status DC Sodium Chloride 1,000 ml @ 400 mls/hr Q2H30M PRN IV PATENCY; Start 08/09/19 at 07:56; Stop 08/09/19 at 19:55; Status DC Info (PHARMACY MONITORING -- do not chart) 1 each PRN DAILY PRN MC SEE COMMENTS; Start 08/09/19 at 08:00; Status UNV Info (PHARMACY MONITORING -- do not chart) 1 each PRN DAILY PRN MC SEE COMMENTS; Start 08/09/19 at 08:00; Status UNV Daptomycin 430 mg/ Sodium Chloride 50 ml @ 100 mls/hr Q24H IV Last administered on 08/09/19at 12:35; Start 08/09/19 at 09:00; Stop 08/09/19 at 12:49; Status DC Sodium Chloride 100 meq/Potassium Chloride 40 meq/ Magnesium Sulfate 20 meq/Calcium Gluconate 15 meq/ Multivitamins 10 ml/Chromium/ Copper/Manganese/ Seleni/Zn 0.5 ml/ Insulin Human Regular 35 unit/ Total Parenteral Nutrition/Amino Acids/Dextrose/ Fat Emulsion Intravenous 1,400 ml @ 58.333 mls/ hr TPN CONT IV Last administered on 08/09/19at 21:26; Start 08/09/19 at 22:00; Stop 08/10/19 at 21:59; Status DC Daptomycin 430 mg/ Sodium Chloride 50 ml @ 100 mls/hr Q48H IV ; Start 08/11/19 at 09:00; Stop 08/10/19 at 11:55; Status DC Sodium Chloride 100 meq/Potassium Chloride 40 meq/ Magnesium Sulfate 20 meq/Calcium Gluconate 15 meq/ Multivitamins 10 ml/Chromium/ Copper/Manganese/ Seleni/Zn 0.5 ml/ Insulin Human Regular 35 unit/ Total Parenteral Nutrition/Amino Acids/Dextrose/ Fat Emulsion Intravenous 1,400 ml @ 58.333 mls/ hr TPN CONT IV Last administered on 08/10/19at 22:27; Start 08/10/19 at 22:00; Stop 08/11/19 at 21:59; Status DC Daptomycin 430 mg/ Sodium Chloride 50 ml @ 100 mls/hr Q24H IV Last administered on 08/12/19at 15:07; Start 08/10/19 at 13:00; Stop 08/13/19 at 13:15; Status DC Sodium Chloride 100 meq/Potassium Chloride 40 meq/ Magnesium Sulfate 20 meq/Calcium Gluconate 10 meq/ Multivitamins 10 ml/Chromium/ Copper/Manganese/ Seleni/Zn 0.5 ml/ Insulin Human Regular 35 unit/ Total Parenteral Nutrition/Amino Acids/Dextrose/ Fat Emulsion Intravenous 1,400 ml @ 58.333 mls/ hr TPN CONT IV Last administered on 08/12/19at 00:06; Start 08/11/19 at 22:00; Stop 08/12/19 at 21:59; Status DC Alteplase, Recombinant (Cathflo For Central Catheter Clearance) 1 mg 1X ONCE INT CAT Last administered on 08/12/19at 11:44; Start 08/12/19 at 10:45; Stop 08/12/19 at 10:46; Status DC Ondansetron HCl (Zofran) 4 mg PRN Q6HRS PRN IV NAUSEA/VOMITING; Start 08/15/19 at 07:00; Stop 08/16/19 at 06:59; Status DC Fentanyl Citrate (Fentanyl 2ml Vial) 25 mcg PRN Q5MIN PRN IV MILD PAIN 1-3; Start 08/15/19 at 07:00; Stop 08/16/19 at 06:59; Status DC Fentanyl Citrate (Fentanyl 2ml Vial) 50 mcg PRN Q5MIN PRN IV MODERATE TO SEVERE PAIN Last administered on 08/15/19at 10:17; Start 08/15/19 at 07:00; Stop 08/16/19 at 06:59; Status DC Ringer's Solution 1,000 ml @ 30 mls/hr Q24H IV ; Start 08/15/19 at 07:00; Stop 08/15/19 at 18:59; Status DC Lidocaine HCl (Xylocaine-Mpf 1% 2ml Vial) 2 ml PRN 1X PRN ID PRIOR TO IV START; Start 08/15/19 at 07:00; Stop 08/16/19 at 06:59; Status DC Prochlorperazine Edisylate (Compazine) 5 mg PACU PRN PRN IV NAUSEA, MRX1; Start 08/15/19 at 07:00; Stop 08/16/19 at 06:59; Status DC Sodium Acetate 50 meq/Potassium Acetate 55 meq/ Magnesium Sulfate 20 meq/Calcium Gluconate 10 meq/ Multivitamins 10 ml/Chromium/ Copper/Manganese/ Seleni/Zn 0.5 ml/ Insulin Human Regular 35 unit/ Total Parenteral Nutrition/Amino Acids/Dextrose/ Fat Emulsion Intravenous 1,400 ml @ 58.333 mls/ hr TPN CONT IV ; Start 08/12/19 at 22:00; Stop 08/12/19 at 14:15; Status DC Sodium Acetate 50 meq/Potassium Acetate 55 meq/ Magnesium Sulfate 20 meq/Calcium Gluconate 10 meq/ Multivitamins 10 ml/Chromium/ Copper/Manganese/ Seleni/Zn 0.5 ml/ Insulin Human Regular 35 unit/ Total Parenteral Nutrition/Amino Acids/Dextrose/ Fat Emulsion Intravenous 1,800 ml @ 75 mls/hr TPN CONT IV Last administered on 08/12/19at 22:38; Start 08/12/19 at 22:00; Stop 08/13/19 at 21:59; Status DC Sodium Chloride 1,000 ml @ 1,000 mls/hr Q1H PRN IV hypotension; Start 08/12/19 at 15:31; Stop 08/12/19 at 21:30; Status DC Diphenhydramine HCl (Benadryl) 25 mg 1X PRN PRN IV ITCHING; Start 08/12/19 at 15:45; Stop 08/13/19 at 15:44; Status DC Diphenhydramine HCl (Benadryl) 25 mg 1X PRN PRN IV ITCHING; Start 08/12/19 at 15:45; Stop 08/13/19 at 15:44; Status DC Sodium Chloride 1,000 ml @ 400 mls/hr Q2H30M PRN IV PATENCY; Start 08/12/19 at 15:31; Stop 08/13/19 at 03:30; Status DC Info (PHARMACY MONITORING -- do not chart) 1 each PRN DAILY PRN MC SEE COMMENTS; Start 08/12/19 at 15:45; Stop 09/13/19 at 14:14; Status DC Sodium Acetate 50 meq/Potassium Acetate 55 meq/ Magnesium Sulfate 20 meq/Calcium Gluconate 10 meq/ Multivitamins 10 ml/Chromium/ Copper/Manganese/ Seleni/Zn 0.5 ml/ Insulin Human Regular 35 unit/ Total Parenteral Nutrition/Amino Acids/Dextrose/ Fat Emulsion Intravenous 1,800 ml @ 75 mls/hr TPN CONT IV Last administered on 08/13/19at 22:03; Start 08/13/19 at 22:00; Stop 08/14/19 at 21:59; Status DC Daptomycin 430 mg/ Sodium Chloride 50 ml @ 100 mls/hr Q24H IV Last administered on 08/18/19at 13:00; Start 08/13/19 at 13:00; Stop 08/18/19 at 20:58; Status DC Heparin Sodium (Porcine) 1000 unit/Sodium Chloride 1,001 ml @ 1,001 mls/hr 1X ONCE IRR ; Start 08/15/19 at 06:00; Stop 08/15/19 at 06:59; Status DC Potassium Acetate 55 meq/Magnesium Sulfate 20 meq/ Calcium Gluconate 10 meq/ Multivitamins 10 ml/Chromium/ Copper/Manganese/ Seleni/Zn 0.5 ml/ Insulin Human Regular 35 unit/ Total Parenteral Nutrition/Amino Acids/Dextrose/ Fat Emulsion Intravenous 1,920 ml @ 80 mls/hr TPN CONT IV Last administered on 08/14/19at 22:10; Start 08/14/19 at 22:00; Stop 08/15/19 at 21:59; Status DC Dexamethasone Sodium Phosphate (Decadron) 4 mg STK-MED ONCE .ROUTE ; Start 08/15/19 at 10:56; Stop 08/15/19 at 10:57; Status DC Ondansetron HCl (Zofran) 4 mg STK-MED ONCE .ROUTE ; Start 08/15/19 at 10:56; Stop 08/15/19 at 10:57; Status DC Rocuronium [place] (Zemuron) 50 mg STK-MED ONCE .ROUTE ; Start 08/15/19 at 10:56; Stop 08/15/19 at 10:57; Status DC Fentanyl Citrate (Fentanyl 2ml Vial) 100 mcg STK-MED ONCE .ROUTE ; Start 08/14 at 10:56; Stop 08/15/19 at 10:57; Status DC Bupivacaine HCl/ Epinephrine Bitart (Sensorcain-Epi 0.5%-1:909810 Mpf) [address] K-MED ONCE .ROUTE Last administered on 08/15/19at 12:01; Start 08/15/19 at 10:58; Stop 08/15/19 at 10:58; Status DC Cellulose (Surgicel Hemostat 2x14) 1 each STK-MED ONCE .ROUTE ; Start 08/15/19 at 10:58; Stop 08/15/19 at 10:59; Status DC Iohexol (Omnipaque 300 Mg/ml) 50 ml STK-MED ONCE .ROUTE ; Start 08/15/19 at 10:58; Stop 08/15/19 at 10:59; Status DC Cellulose (Surgicel Hemostat 4x8) 1 each STK-MED ONCE .ROUTE ; Start 08/15/19 at 10:58; Stop 08/15/19 at 10:59; Status DC Bisacodyl (Dulcolax Supp) 10 mg STK-MED ONCE .ROUTE ; Start 08/15/19 at 10:59; Stop 08/15/19 at 10:59; Status DC Heparin Sodium (Porcine) 1000 unit/Sodium Chloride 1,001 ml @ 1,001 mls/hr 1X ONCE IRR ; Start 08/15/19 at 12:00; Stop 08/15/19 at 12:59; Status DC Propofol 20 ml @ As Directed STK-MED ONCE IV ; Start 08/15/19 at 11:05; Stop 08/15/19 at 11:05; Status DC Sevoflurane (Ultane) 90 ml STK-MED ONCE IH ; Start 08/15/19 at 11:05; Stop 08/15/19 at 11:05; Status DC Sevoflurane (Ultane) 60 ml STK-MED ONCE IH ; Start 08/15/19 at 12:26; Stop 08/15/19 at 12:27; Status DC Propofol 20 ml @ As Directed STK-MED ONCE IV ; Start 08/15/19 at 12:26; Stop 08/15/19 at 12:27; Status DC Phenylephrine HCl (PHENYLEPHRINE in 0.9% NACL PF) 1 mg STK-MED ONCE IV ; Start 08/15/19 at 12:34; Stop 08/15/19 at 12:34; Status DC Heparin Sodium (Porcine) (Heparin Sodium) 5,000 unit Q12HR SQ Last administered on 08/24/19at 20:57; Start 08/15/19 at 21:00; Stop 08/25/19 at 09:59; Status DC Sodium Chloride (Normal Saline Flush) 3 ml QSHIFT PRN IV AFTER MEDS AND BLOOD DRAWS; Start 08/15/19 at 13:45 Naloxone HCl (Narcan) 0.4 mg PRN Q2MIN PRN IV SEE INSTRUCTIONS Last administered on 09/24/19at 15:15; Start 08/15/19 at 13:45 Sodium Chloride 1,000 ml @ 25 mls/hr Q24H IV Last administered on 09/13/19at 13:37; Start 08/15/19 at 13:37; Stop 09/16/19 at 13:09; Status DC Naloxone HCl (Narcan) 0.4 mg PRN Q2MIN PRN IV SEE INSTRUCTIONS; Start 08/15/19 at 14:30; Status UNV Sodium Chloride 1,000 ml @ 25 mls/hr Q24H IV ; Start 08/15/19 at 14:30; Status UNV Hydromorphone HCl 30 ml @ 0 mls/hr CONT PRN PRN IV PER PROTOCOL Last administered on 08/20/19at 16:08; Start 08/15/19 at 14:30; Stop 08/22/19 at 08:55; Status DC Potassium Acetate 55 meq/Magnesium Sulfate 20 meq/ Calcium Gluconate 10 meq/ Multivitamins 10 ml/Chromium/ Copper/Manganese/ Seleni/Zn 0.5 ml/ Insulin Human Regular 35 unit/ Total Parenteral Nutrition/Amino Acids/Dextrose/ Fat Emulsion Intravenous 1,920 ml @ 80 mls/hr TPN CONT IV Last administered on 08/15/19at 22:01; Start 08/15/19 at 22:00; Stop 08/16/19 at 21:59; Status DC Bumetanide (Bumex) 2 mg [id number] IV Last administered on 08/19/19at 13:50; Start 08/16/19 at 14:00; Stop 08/20/19 at 14:10; Status DC Meropenem 1 gm/ Sodium Chloride 100 ml @ 200 mls/hr Q8HRS IV Last administered on 09/09/19at 05:53; Start 08/16/19 at 14:00; Stop 09/09/19 at 09:31; Status DC Potassium Acetate 55 meq/Magnesium Sulfate 20 meq/ Calcium Gluconate 10 meq/ Mul tivitamins 10 ml/Chromium/ Copper/Manganese/ Seleni/Zn 0.5 ml/ Insulin Human Regular 35 unit/ Total Parenteral Nutrition/Amino Acids/Dextrose/ Fat Emulsion Intravenous 1,920 ml @ 80 mls/hr TPN CONT IV Last administered on 08/16/19at 22:02; Start 08/16/19 at 22:00; Stop 08/17/19 at 21:59; Status DC Hydromorphone HCl (Dilaudid Standard STATION OPERATOR) 12 mg STK-MED ONCE IV ; Start 08/15/19 at 14:35; Stop 08/16/19 at 13:53; Status DC Artificial Tears (Artificial Tears) 1 drop PRN Q15MIN PRN OU DRY EYE Last administered on 10/11/19at 21:17; Start 08/17/19 at 05:30 Hydromorphone HCl (Dilaudid Standard STATION OPERATOR) 12 mg STK-MED ONCE IV ; Start 08/16/19 at 12:05; Stop 08/17/19 at 09:15; Status DC Potassium Acetate 65 meq/Magnesium Sulfate 20 meq/ Calcium Gluconate 10 meq/ Multivitamins 10 ml/Chromium/ Copper/Manganese/ Seleni/Zn 0.5 ml/ Insulin Human Regular 30 unit/ Total Parenteral Nutrition/Amino Acids/Dextrose/ Fat Emulsion Intravenous 1,920 ml @ 80 mls/hr TPN CONT IV Last administered on 08/17/19at 22:22; Start 08/17/19 at 22:00; Stop 08/18/19 at 21:59; Status DC Cyclobenzaprine HCl (Flexeril) 10 mg PRN Q6HRS PRN PO MUSCLE SPASMS; Start 08/18/19 at 10:45 Potassium Acetate 55 meq/Magnesium Sulfate 20 meq/ Calcium Gluconate 10 meq/ Multivitamins 10 ml/Chromium/ Copper/Manganese/ Seleni/Zn 0.5 ml/ Insulin Human Regular 30 unit/ Total Parenteral Nutrition/Amino Acids/Dextrose/ Fat Emulsion Intravenous 1,920 ml @ 80 mls/hr TPN CONT IV Last administered on 08/19/19at 01:00; Start 08/18/19 at 22:00; Stop 08/19/19 at 21:59; Status DC Magnesium Sulfate 50 ml @ 25 mls/hr 1X ONCE IV Last administered on 08/18/19at 17:18; Start 08/18/19 at 12:45; Stop 08/18/19 at 14:44; Status DC Potassium Chloride/Water 100 ml @ 100 mls/hr 1X ONCE IV Last administered on 08/19/19at 11:27; Start 08/19/19 at 12:00; Stop 08/19/19 at 12:59; Status DC Hydromorphone HCl (Dilaudid Standard STATION OPERATOR) 12 mg STK-MED ONCE IV ; Start 08/17/19 at 10:50; Stop 08/19/19 at 11:02; Status DC Hydromorphone HCl (Dilaudid Standard STATION OPERATOR) 12 mg STK-MED ONCE IV ; Start 08/18/19 at 13:47; Stop 08/19/19 at 11:03; Status DC Potassium Acetate 30 meq/Magnesium Sulfate 20 meq/ Calcium Gluconate 10 meq/ Multivitamins 10 ml/Chromium/ Copper/Manganese/ Seleni/Zn 0.5 ml/ Insulin Human Regular 30 unit/ Potassium Chloride 30 meq/ Total Parenteral Nutrition/Amino Acids/Dextrose/ Fat Emulsion Intravenous 1,920 ml @ 80 mls/hr TPN CONT IV Last administered on 08/19/19at 22:34; Start 08/19/19 at 22:00; Stop 08/20/19 at 21:59; Status DC Potassium Chloride/Water 100 ml @ 100 mls/hr Q1H IV Last administered on 08/20/19at 13:05; Start 08/20/19 at 07:00; Stop 08/20/19 at 10:59; Status DC Magnesium Sulfate 50 ml @ 25 mls/hr 1X ONCE IV Last administered on 08/20/19at 10:34; Start 08/20/19 at 10:30; Stop 08/20/19 at 12:29; Status DC Potassium Chloride 75 meq/ Magnesium Sulfate 20 meq/Calcium Gluconate 10 meq/ Multivitamins 10 ml/Chromium/ Copper/Manganese/ Seleni/Zn 0.5 ml/ Insulin Human Regular 30 unit/ Total Parenteral Nutrition/Amino Acids/Dextrose/ Fat Emulsion Intravenous 1,920 ml @ 80 mls/hr TPN CONT IV Last administered on 08/20/19at 21:51; Start 08/20/19 at 22:00; Stop 08/21/19 at 22:00; Status DC Potassium Chloride 75 meq/ Magnesium Sulfate 20 meq/Calcium Gluconate 10 meq/ Multivitamins 10 ml/Chromium/ Copper/Manganese/ Seleni/Zn 0.5 ml/ Insulin Human Regular 25 unit/ Total Parenteral Nutrition/Amino Acids/Dextrose/ Fat Emulsion Intravenous 1,920 ml @ 80 mls/hr TPN CONT IV Last administered on 08/21/19at 22:04; Start 08/21/19 at 22:00; Stop 08/22/19 at 21:59; Status DC Hydromorphone HCl (Dilaudid) 0.4 mg PRN Q4HRS PRN IVP PAIN Last administered on 08/22/19at 10:57; Start 08/22/19 at 09:00; Stop 08/22/19 at 18:59; Status DC Micafungin Sodium 100 mg/Dextrose 100 ml @ 100 mls/hr Q24H IV Last administered on 09/13/19at 12:17; Start 08/22/19 at 11:00; Stop 09/14/19 at 09:59; Status DC Daptomycin 485 mg/ Sodium Chloride 50 ml @ 100 mls/hr Q24H IV Last administered on 08/29/19at 13:10; Start 08/22/19 at 11:00; Stop 08/30/19 at 07:44; Status DC Potassium Chloride 75 meq/ Magnesium Sulfate 15 meq/Calcium Gluconate 8 meq/ Multivitamins 10 ml/Chromium/ Copper/Manganese/ Seleni/Zn 0.5 ml/ Insulin Human Regular 25 unit/ Total Parenteral Nutrition/Amino Acids/Dextrose/ Fat Emulsion Intravenous 1,920 ml @ 80 mls/hr TPN CONT IV Last administered on 08/22/19at 23:08; Start 08/22/19 at 22:00; Stop 08/23/19 at 21:59; Status DC Haloperidol Lactate (Haldol Inj) 3 mg 1X ONCE IVP Last administered on 08/22/19at 14:37; Start 08/22/19 at 14:30; Stop 08/22/19 at 14:31; Status DC Hydromorphone HCl (Dilaudid) 1 mg PRN Q4HRS PRN IVP PAIN Last administered on 09/05/19at 06:25; Start 08/22/19 at 19:00; Stop 09/05/19 at 17:10; Status DC Potassium Chloride 75 meq/ Magnesium Sulfate 15 meq/Calcium Gluconate 8 meq/ Multivitamins 10 ml/Chromium/ Copper/Manganese/ Seleni/Zn 0.5 ml/ Insulin Human Regular 20 unit/ Total Parenteral Nutrition/Amino Acids/Dextrose/ Fat Emulsion Intravenous 1,920 ml @ 80 mls/hr TPN CONT IV Last administered on 08/23/19at 22:10; Start 08/23/19 at 22:00; Stop 08/24/19 at 21:59; Status DC Lidocaine HCl (Buffered Lidocaine 1%) 3 ml STK-MED ONCE .ROUTE ; Start 08/24/19 at 11:31; Stop 08/24/19 at 11:31; Status DC Lidocaine HCl (Buffered Lidocaine 1%) 3 ml STK-MED ONCE .ROUTE ; Start 08/24/19 at 12:28; Stop 08/24/19 at 12:29; Status DC Lidocaine HCl (Buffered Lidocaine 1%) 6 ml 1X ONCE INJ Last administered on 08/24/19at 12:53; Start 08/24/19 at 12:45; Stop 08/24/19 at 12:46; Status DC Potassium Chloride 75 meq/ Magnesium Sulfate 15 meq/Calcium Gluconate 8 meq/ Multivitamins 10 ml/Chromium/ Copper/Manganese/ Seleni/Zn 0.5 ml/ Insulin Human Regular 20 unit/ Total Parenteral Nutrition/Amino Acids/Dextrose/ Fat Emulsion Intravenous 1,920 ml @ 80 mls/hr TPN CONT IV Last administered on 08/24/19at 22:00; Start 08/24/19 at 22:00; Stop 08/25/19 at 21:59; Status DC Potassium Chloride 75 meq/ Magnesium Sulfate 15 meq/Calcium Gluconate 8 meq/ Multivitamins 10 ml/Chromium/ Copper/Manganese/ Seleni/Zn 0.5 ml/ Insulin Human Regular 15 unit/ Total Parenteral Nutrition/Amino Acids/Dextrose/ Fat Emulsion Intravenous 1,920 ml @ 80 mls/hr TPN CONT IV Last administered on 08/25/19at 22:28; Start 08/25/19 at 22:00; Stop 08/26/19 at 21:59; Status DC Vecuronium [place] (Norcuron Bolus) 6 mg PRN Q6HRS PRN IV VENT ASYNCHRONY; Start 08/25/19 at 19:15; Stop 08/25/19 at 19:35; Status DC Bumetanide (Bumex) 2 mg 1X ONCE IV Last administered on 08/25/19at 22:09; Start 08/25/19 at 19:45; Stop 08/25/19 at 19:46; Status DC Lidocaine HCl (Buffered Lidocaine 1%) 3 ml STK-MED ONCE .ROUTE ; Start 08/26/19 at 07:59; Stop 08/26/19 at 07:59; Status DC Midazolam HCl (Versed) 5 mg STK-MED ONCE .ROUTE ; Start 08/26/19 at 08:36; Stop 08/26/19 at 08:36; Status DC Fentanyl Citrate (Fentanyl 5ml Vial) 250 mcg STK-MED ONCE .ROUTE ; Start 08/26/19 at 08:36; Stop 08/26/19 at 08:37; Status DC Lidocaine HCl (Buffered Lidocaine 1%) 3 ml 1X ONCE IJ Last administered on 08/26/19at 09:30; Start 08/26/19 at 09:15; Stop 08/26/19 at 09:16; Status DC Midazolam HCl (Versed) 5 mg 1X ONCE IV Last administered on 08/26/19at 09:30; Start 08/26/19 at 09:15; Stop 08/26/19 at 09:16; Status DC Fentanyl Citrate (Fentanyl 5ml Vial) 250 mcg 1X ONCE IV Last administered on 08/26/19at 09:30; Start 08/26/19 at 09:15; Stop 08/26/19 at 09:16; Status DC Bumetanide (Bumex) 2 mg DAILY IV Last administered on 09/05/19at 08:07; Start 08/26/19 at 10:00; Stop 09/05/19 at 17:15; Status DC Potassium Chloride 75 meq/ Magnesium Sulfate 15 meq/ Multivitamins 10 ml/Chromium/ Copper/Manganese/ Seleni/Zn 0.5 ml/ Insulin Human Regular 15 unit/ Total Parenteral Nutrition/Amino Acids/Dextrose/ Fat Emulsion Intravenous 1,920 ml @ 80 mls/hr TPN CONT IV Last administered on 08/26/19at 21:59; Start 08/26/19 at 22:00; Stop 08/27/19 at 21:59; Status DC Metoclopramide HCl (Reglan Vial) 10 mg PRN Q3HRS PRN IVP NAUSEA/VOMITING-3rd choice Last administered on 09/01/19at 04:25; Start 08/27/19 at 16:45 Potassium Chloride 75 meq/ Magnesium Sulfate 15 meq/ Multivitamins 10 ml/Chromium/ Copper/Manganese/ Seleni/Zn 0.5 ml/ Insulin Human Regular 15 unit/ Total Parenteral Nutrition/Amino Acids/Dextrose/ Fat Emulsion Intravenous 1,920 ml @ 80 mls/hr TPN CONT IV Last administered on 08/27/19at 22:41; Start 08/27/19 at 22:00; Stop 08/28/19 at 21:59; Status DC Magnesium Sulfate 50 ml @ 25 mls/hr 1X ONCE IV Last administered on 08/28/19at 10:44; Start 08/28/19 at 09:00; Stop 08/28/19 at 10:59; Status DC Potassium Chloride/Water 100 ml @ 100 mls/hr 1X ONCE IV Last administered on 08/28/19at 09:37; Start 08/28/19 at 09:00; Stop 08/28/19 at 09:59; Status DC Duloxetine HCl (Cymbalta) 30 mg DAILY PO Last administered on 08/29/19at 09:48; Start 08/28/19 at 14:00; Stop 08/31/19 at 10:25; Status DC Potassium Chloride 80 meq/ Magnesium Sulfate 20 meq/ Multivitamins 10 ml/Chromium/ Copper/Manganese/ Seleni/Zn 0.5 ml/ Insulin Human Regular 15 unit/ Total Parenteral Nutrition/Amino Acids/Dextrose/ Fat Emulsion Intravenous 1,920 ml @ 80 mls/hr TPN CONT IV Last administered on 08/28/19at 21:42; Start 08/28/19 at 22:00; Stop 08/29/19 at 21:59; Status DC Potassium Chloride 80 meq/ Magnesium Sulfate 20 meq/ Multivitamins 10 ml/Chromium/ Copper/Manganese/ Seleni/Zn 0.5 ml/ Insulin Human Regular 15 unit/ Total Parenteral Nutrition/Amino Acids/Dextrose/ Fat Emulsion Intravenous 1,920 ml @ 80 mls/hr TPN CONT IV Last administered on 08/29/19at 22:20; Start 08/29/19 at 22:00; Stop 08/30/19 at 21:59; Status DC Lidocaine HCl (Buffered Lidocaine 1%) 3 ml STK-MED ONCE .ROUTE ; Start 08/30/19 at 09:54; Stop 08/30/19 at 09:55; Status DC Hydromorphone HCl (Dilaudid Standard STATION OPERATOR) 12 mg STK-MED ONCE IV ; Start 08/19/19 at 15:50; Stop 08/30/19 at 11:24; Status DC Potassium Chloride 80 meq/ Magnesium Sulfate 20 meq/ Multivitamins 10 ml/Chromium/ Copper/Manganese/ Seleni/Zn 0.5 ml/ Insulin Human Regular 15 unit/ Total Parenteral Nutrition/Amino Acids/Dextrose/ Fat Emulsion Intravenous 1,920 ml @ 80 mls/hr TPN CONT IV Last administered on 08/30/19at 21:40; Start 08/30/19 at 22:00; Stop 08/31/19 at 21:59; Status DC Lidocaine HCl (Buffered Lidocaine 1%) 6 ml 1X ONCE INJ Last administered on 08/30/19at 14:15; Start 08/30/19 at 14:15; Stop 08/30/19 at 14:16; Status DC Potassium Chloride 80 meq/ Magnesium Sulfate 20 meq/ Multivitamins 10 ml/Chromium/ Copper/Manganese/ Seleni/Zn 1 ml/ Insulin Human Regular 15 unit/ To anthony Parenteral Nutrition/Amino Acids/Dextrose/ Fat Emulsion Intravenous 1,920 ml @ 80 mls/hr TPN CONT IV Last administered on 08/31/19at 22:04; Start 08/31/19 at 22:00; Stop 09/01/19 at 21:59; Status DC Potassium Chloride/Water 100 ml @ 100 mls/hr 1X ONCE IV Last administered on 09/01/19at 11:34; Start 09/01/19 at 11:00; Stop 09/01/19 at 11:59; Status DC Potassium Chloride 90 meq/ Magnesium Sulfate 20 meq/ Multivitamins 10 ml/Chromium/ Copper/Manganese/ Seleni/Zn 1 ml/ Insulin Human Regular 15 unit/ T otal Parenteral Nutrition/Amino Acids/Dextrose/ Fat Emulsion Intravenous 1,920 ml @ 80 mls/hr TPN CONT IV Last administered on 09/01/19at 22:57; Start 09/01/19 at 22:00; Stop 09/02/19 at 21:59; Status DC Potassium Chloride 90 meq/ Magnesium Sulfate 20 meq/ Multivitamins 10 ml/Chromium/ Copper/Manganese/ Seleni/Zn 1 ml/ Insulin Human Regular 15 unit/ Total Parenteral Nutrition/Amino Acids/Dextrose/ Fat Emulsion Intravenous 1,920 ml @ 80 mls/hr TPN CONT IV Last administered on 09/02/19at 22:48; Start at 22:00; Stop 09/03/19 at 21:59; Status DC Potassium Chloride 90 meq/ Magnesium Sulfate 20 meq/ Multivitamins 10 ml/Nursing Education Consultant mium/ Copper/Manganese/ Seleni/Zn 1 ml/ Insulin Human Regular 15 unit/ Total Parenteral Nutrition/Amino Acids/Dextrose/ Fat Emulsion Intravenous 1,890 ml @ 78.75 mls/ hr TPN CONT IV Last administered on 09/03/19at 22:15; Start 09/03/19 at 22:00; Stop 09/04/19 at 21:59; Status DC Linezolid/Dextrose 300 ml @ 300 mls/hr Q12HR IV Last administered on 09/06/19at 21:08; Start 09/04/19 at 09:00; Stop 09/07/19 at 08:11; Status DC Daptomycin 450 mg/ Sodium Chloride 50 ml @ 100 mls/hr Q24H IV Last administered on 09/07/19at 09:25; Start 09/04/19 at 09:00; Stop 09/08/19 at 08:30; Status DC Potassium Chloride 90 meq/ Magnesium Sulfate 20 meq/ Multivitamins 10 ml/Chromium/ Copper/Manganese/ Seleni/Zn 1 ml/ Insulin Human Regular 15 unit/ Total Parenteral Nutrition/Amino Acids/Dextrose/ Fat Emulsion Intravenous 1,890 ml @ 78.75 mls/ hr TPN CONT IV Last administered on 09/04/19at 21:34; Start 09/04/19 at 22:00; Stop 09/05/19 at 21:59; Status DC Lorazepam (Ativan Inj) 2 mg STK-MED ONCE .ROUTE ; Start 09/04/19 at 14:58; Stop 09/04/19 at 14:58; Status DC Metoprolol Tartrate (Lopressor Vial) 5 mg 1X ONCE IVP Last administered on 09/04/19at 15:31; Start 09/04/19 at 15:15; Stop 09/04/19 at 15:16; Status DC Lorazepam (Ativan Inj) 2 mg 1X ONCE IVP Last administered on 09/04/19at 15:30; Start 09/04/19 at 15:15; Stop 09/04/19 at 15:16; Status DC Enoxaparin Sodium (Lovenox 40mg Syringe) 40 mg Q24H SQ Last administered on 09/23/19at 17:44; Start 09/04/19 at 17:00; Stop 09/25/19 at 06:50; Status DC Lorazepam (Ativan Inj) 1 mg PRN Q4HRS PRN IVP ANXIETY / AGITATION MILD-MOD Last administered on 09/18/19at 15:55; Start 09/04/19 at 19:15; Stop 09/20/19 at 11:45; Status DC Lorazepam (Ativan Inj) 2 mg PRN Q4HRS PRN IVP ANXIETY / AGITATION SEVERE Last administered on 09/19/19at 07:55; Start 09/04/19 at 19:15; Stop 09/20/19 at 11:45; Status DC Fentanyl Citrate (Fentanyl 2ml Vial) 50 mcg PRN Q4HRS PRN IVP SEVERE PAIN Last administered on 10/01/19at 05:15; Start 09/05/19 at 13:15; Stop 10/02/19 at 09:29; Status DC Fentanyl Citrate (Fentanyl 2ml Vial) 25 mcg PRN Q4HRS PRN IVP MODERATE PAIN Last administered on 10/01/19at 00:27; Start 09/05/19 at 13:15; Stop 10/02/19 at 09:30; Status DC Potassium Chloride 90 meq/ Magnesium Sulfate 20 meq/ Multivitamins 10 ml/Chromium/ Copper/Manganese/ Seleni/Zn 1 ml/ Insulin Human Regular 15 unit/ Total Parenteral Nutrition/Amino Acids/Dextrose/ Fat Emulsion Intravenous 1,890 ml @ 78.75 mls/ hr TPN CONT IV Last administered on 09/05/19at 22:18; Start 09/05/19 at 22:00; Stop 09/06/19 at 21:59; Status DC Furosemide (Lasix) 40 mg 1X ONCE IVP Last administered on 09/05/19at 21:51; Start 09/05/19 at 21:45; Stop 09/05/19 at 21:48; Status DC Albumin Human 100 ml @ 100 mls/hr 1X PRN PRN IV SEE COMMENTS; Start 09/06/19 at 01:30 Furosemide (Lasix) 40 mg [id number] IVP Last administered on 09/21/19at 08:04; Start 09/06/19 at 14:00; Stop 09/21/19 at 13:07; Status DC Potassium Chloride 90 meq/ Magnesium Sulfate 20 meq/ Multivitamins 10 ml/Chromium/ Copper/Manganese/ Seleni/Zn 1 ml/ Insulin Human Regular 15 unit/ Total Parenteral Nutrition/Amino Acids/Dextrose/ Fat Emulsion Intravenous 1,800 ml @ 75 mls/hr TPN CONT IV Last administered on 09/06/19at 22:31; Start 09/06/19 at 22:00; Stop 09/07/19 at 21:59; Status DC Potassium Chloride 90 meq/ Magnesium Sulfate 20 meq/ Multivitamins 10 ml/Chromium/ Copper/Manganese/ Seleni/Zn 1 ml/ Insulin Human Regular 15 unit/ Total Parenteral Nutrition/Amino Acids/Dextrose/ Fat Emulsion Intravenous 1,800 ml @ 75 mls/hr TPN CONT IV Last administered on 09/07/19at 22:28; Start 09/07/19 at 22:00; Stop 09/08/19 at 21:59; Status DC Potassium Chloride 110 meq/ Magnesium Sulfate 20 meq/ Multivitamins 10 ml/Chromium/ Copper/Manganese/ Seleni/Zn 1 ml/ Insulin Human Regular 15 unit/ Total Parenteral Nutrition/Amino Acids/Dextrose/ Fat Emulsion Intravenous 1,800 ml @ 75 mls/hr TPN CONT IV Last administered on 09/08/19at 22:01; Start 09/08/19 at 22:00; Stop 09/09/19 at 21:59; Status DC Saliva Substitute (Biotene Moisturizing Mouth) 2 spray PRN Q15MIN PRN PO DRY MOUTH; Start 09/08/19 at 11:00 Potassium Chloride 110 meq/ Magnesium Sulfate 20 meq/ Multivitamins 10 ml/Chromium/ Copper/Manganese/ Seleni/Zn 1 ml/ Insulin Human Regular 15 unit/ Total Parenteral Nutrition/Amino Acids/Dextrose/ Fat Emulsion Intravenous 1,800 ml @ 75 mls/hr TPN CONT IV Last administered on 09/09/19at 22:21; Start 09/09/19 at 22:00; Stop 09/10/19 at 21:59; Status DC Potassium Chloride 110 meq/ Magnesium Sulfate 20 meq/ Multivitamins 10 ml/Chromium/ Copper/Manganese/ Seleni/Zn 1 ml/ Insulin Human Regular 15 unit/ Total Parenteral Nutrition/Amino Acids/Dextrose/ Fat Emulsion Intravenous 1,800 ml @ 75 mls/hr TPN CONT IV Last administered on 09/10/19at 22:04; Start 09/10/19 at 22:00; Stop 09/11/19 at 21:59; Status DC Potassium Chloride 110 meq/ Magnesium Sulfate 20 meq/ Multivitamins 10 ml/Chromium/ Copper/Manganese/ Seleni/Zn 1 ml/ Insulin Human Regular 15 unit/ Total Parenteral Nutrition/Amino Acids/Dextrose/ Fat Emulsion Intravenous 1,800 ml @ 75 mls/hr TPN CONT IV Last administered on 09/11/19at 22:48; Start 09/11/19 at 22:00; Stop 09/12/19 at 21:59; Status DC Potassium Chloride 70 meq/ Magnesium Sulfate 20 meq/ Multivitamins 10 ml/Chromium/ Copper/Manganese/ Seleni/Zn 1 ml/ Insulin Human Regular 15 unit/ Total Parenteral Nutrition/Amino Acids/Dextrose/ Fat Emulsion Intravenous 1,800 ml @ 75 mls/hr TPN CONT IV Last administered on 09/12/19at 21:39; Start 09/12/19 at 22:00; Stop 09/13/19 at 21:59; Status DC Meropenem 500 mg/ Sodium Chloride 50 ml @ 100 mls/hr Q6HRS IV Last administered on 09/14/19at 06:02; Start 09/12/19 at 18:00; Stop 09/14/19 at 09:59; Status DC Barium Sulfate (Varibar Thin Liquid Apple) 148 gm 1X ONCE PO ; Start 09/13/19 at 11:45; Stop 09/13/19 at 11:49; Status DC Potassium Chloride 70 meq/ Magnesium Sulfate 20 meq/ Multivitamins 10 ml/Chromiu m/ Copper/Manganese/ Seleni/Zn 1 ml/ Insulin Human Regular 15 unit/ Total Parenteral Nutrition/Amino Acids/Dextrose/ Fat Emulsion Intravenous 1,800 ml @ 75 mls/hr TPN CONT IV Last administered on 09/13/19at 22:27; Start 09/13/19 at 22:00; Stop 09/14/19 at 21:59; Status DC Piperacillin Sod/ Tazobactam Sod 3.375 gm/Sodium Chloride 50 ml @ 100 mls/hr Q6HRS IV Last administered on 09/22/19at 06:10; Start 09/14/19 at 12:00; Stop 09/22/19 at 07:26; Status DC Potassium Chloride 70 meq/ Magnesium Sulfate 20 meq/ Multivitamins 10 ml/Chromium/ Copper/Manganese/ Seleni/Zn 1 ml/ Insulin Human Regular 15 unit/ Total Parenteral Nutrition/Amino Acids/Dextrose/ Fat Emulsion Intravenous 1,800 ml @ 75 mls/hr TPN CONT IV Last administered on 09/14/19at 22:03; Start at 22:00; Stop 09/15/19 at 21:59; Status DC Potassium Chloride 70 meq/ Magnesium Sulfate 20 meq/ Multivitamins 10 ml/Chromiu m/ Copper/Manganese/ Seleni/Zn 1 ml/ Insulin Human Regular 15 unit/ Total Parenteral Nutrition/Amino Acids/Dextrose/ Fat Emulsion Intravenous 1,800 ml @ 75 mls/hr TPN CONT IV Last administered on 09/15/19at 22:33; Start 09/15/19 at 22:00; Stop 09/16/19 at 21:59; Status DC Potassium Chloride 70 meq/ Magnesium Sulfate 20 meq/ Multivitamins 10 ml/Chromium/ Copper/Manganese/ Seleni/Zn 1 ml/ Insulin Human Regular 15 unit/ Total Parenteral Nutrition/Amino Acids/Dextrose/ Fat Emulsion Intravenous 1,800 ml @ 75 mls/hr TPN CONT IV Last administered on 09/16/19at 23:13; Start 09/16/19 at 22:00; Stop 09/17/19 at 21:59; Status DC Potassium Chloride 80 meq/ Magnesium Sulfate 20 meq/ Multivitamins 10 ml/Chromium/ Copper/Manganese/ Seleni/Zn 1 ml/ Insulin Human Regular 15 unit/ Total Parenteral Nutrition/Amino Acids/Dextrose/ Fat Emulsion Intravenous 1,800 ml @ 75 mls/hr TPN CONT IV Last administered on 09/17/19at 22:30; Start 09/17/19 at 22:00; Stop 09/18/19 at 21:59; Status DC Potassium Chloride 80 meq/ Magnesium Sulfate 20 meq/ Multivitamins 10 ml/Chromium/ Copper/Manganese/ Seleni/Zn 1 ml/ Insulin Human Regular 15 unit/ Total Parenteral Nutrition/Amino Acids/Dextrose/ Fat Emulsion Intravenous 1,800 ml @ 75 mls/hr TPN CONT IV Last administered on 09/18/19at 21:54; Start 09/18/19 at 22:00; Stop 09/19/19 at 21:59; Status DC Potassium Chloride/Water 100 ml @ 100 mls/hr 1X ONCE IV Last administered on 09/19/19at 10:15; Start 09/19/19 at 10:00; Stop 09/19/19 at 10:59; Status DC Potassium Chloride 90 meq/ Magnesium Sulfate 20 meq/ Multivitamins 10 ml/Chromium/ Copper/Manganese/ Seleni/Zn 1 ml/ Insulin Human Regular 20 unit/ Total Parenteral Nutrition/Amino Acids/Dextrose/ Fat Emulsion Intravenous 1,800 ml @ 75 mls/hr TPN CONT IV Last administered on 09/19/19at 22:28; Start 09/19/19 at 22:00; Stop 09/20/19 at 21:59; Status DC Potassium Chloride 90 meq/ Magnesium Sulfate 20 meq/ Multivitamins 10 ml/Chromium/ Copper/Manganese/ Seleni/Zn 1 ml/ Insulin Human Regular 20 unit/ Total Parenteral Nutrition/Amino Acids/Dextrose/ Fat Emulsion Intravenous 1,800 ml @ 75 mls/hr TPN CONT IV Last administered on 09/20/19at 22:08; Start 09/20/19 at 22:00; Stop 09/21/19 at 21:59; Status DC Lorazepam (Ativan Inj) 0.25 mg PRN Q4HRS PRN IVP ANXIETY / AGITATION Last administered on 10/01/19at 02:25; Start 09/21/19 at 07:30 Potassium Chloride 90 meq/ Magnesium Sulfate 20 meq/ Multivitamins 10 ml/Chromium/ Copper/Manganese/ Seleni/Zn 1 ml/ Insulin Human Regular 20 unit/ Total Parenteral Nutrition/Amino Acids/Dextrose/ Fat Emulsion Intravenous 1,800 ml @ 75 mls/hr TPN CONT IV Last administered on 09/21/19at 23:13; Start 09/21/19 at 22:00; Stop 09/22/19 at 21:59; Status DC Furosemide (Lasix) 40 mg DAILY IVP Last administered on 09/23/19at 11:14; Start 09/21/19 at 13:30; Stop 09/25/19 at 09:12; Status DC Fluoxetine HCl (PROzac) 20 mg QHS PEG Last administered on 10/11/19at 21:46; Start 09/22/19 at 21:00 Fentanyl (Duragesic 50mcg/ Hr Patch) 1 patch Q72H TD Last administered on 09/22/19at 21:22; Start 09/22/19 at 21:00; Stop 10/01/19 at 12:00; Status DC Potassium Chloride 40 meq/ Potassium Acetate 60 meq/Magnesium Sulfate 10 meq/ Multivitamins 10 ml/Chromium/ Copper/Manganese/ Seleni/Zn 1 ml/ Insulin Human Regular 20 unit/ Total Parenteral Nutrition/Amino Acids/Dextrose/ Fat Emulsion Intravenous 1,800 ml @ 75 mls/hr TPN CONT IV Last administered on 09/23/19at 00:03; Start 09/22/19 at 22:00; Stop 09/23/19 at 21:59; Status DC Potassium Acetate 80 meq/Magnesium Sulfate 5 meq/ Multivitamins 10 ml/Chromium/ Copper/Manganese/ Seleni/Zn 1 ml/ Insulin Human Regular 20 unit/ Total Parenteral Nutrition/Amino Acids/Dextrose/ Fat Emulsion Intravenous 1,920 ml @ 80 mls/hr TPN CONT IV Last administered on 09/23/19at 21:59; Start 09/23/19 at 22:00; Stop 09/24/19 at 21:59; Status DC Potassium Acetate 60 meq/Magnesium Sulfate 5 meq/ Multivitamins 10 ml/Chromium/ Copper/Manganese/ Seleni/Zn 1 ml/ Insulin Human Regular 30 unit/ Total Parenteral Nutrition/Amino Acids/Dextrose/ Fat Emulsion Intravenous 1,920 ml @ 80 mls/hr TPN CONT IV Last administered on 09/24/19at 21:54; Start 09/24/19 at 22:00; Stop 09/25/19 at 21:59; Status DC Norepinephrine Bitartrate 8 mg/ Dextrose 258 ml @ 13.332 mls/ hr CONT PRN IV PER PROTOCOL Last administered on 09/25/19at 21:46; Start 09/25/19 at 06:30 Albumin Human 500 ml @ 125 mls/hr 1X ONCE IV Last administered on 09/25/19at 08:10; Start 09/25/19 at 08:15; Stop 09/25/19 at 12:14; Status DC Potassium Acetate 40 meq/Magnesium Sulfate 5 meq/ Multivitamins 10 ml/Chromium/ Copper/Manganese/ Seleni/Zn 1 ml/ Insulin Human Regular 30 unit/ Total Parenteral Nutrition/Amino Acids/Dextrose/ Fat Emulsion Intravenous 1,920 ml @ 80 mls/hr TPN CONT IV Last administered on 09/25/19at 22:23; Start 09/25/19 at 22:00; Stop 09/26/19 at 21:59; Status DC Meropenem 1 gm/ Sodium Chloride 100 ml @ 200 mls/hr Q8HRS IV ; Start 09/25/19 at 14:00; Status Cancel Meropenem 1 gm/ Sodium Chloride 100 ml @ 200 mls/hr Q8HRS IV Last administered on 09/25/19at 11:04; Start 09/25/19 at 10:00; Stop 09/25/19 at 13:00; Status DC Meropenem 1 gm/ Sodium Chloride 100 ml @ 200 mls/hr Q12HR IV Last administered on 10/12/19at 08:05; Start 09/25/19 at 21:00 Sodium Chloride 1,000 ml @ 1,000 mls/hr 1X ONCE IV Last administered on 09/25/19at 11:06; Start 09/25/19 at 10:45; Stop 09/25/19 at 11:44; Status DC Micafungin Sodium 100 mg/Dextrose 100 ml @ 100 mls/hr Q24H IV Last administered on 10/11/19at 12:20; Start 09/25/19 at 11:00 Daptomycin 410 mg/ Sodium Chloride 50 ml @ 100 mls/hr Q24H IV Last administered on 09/27/19at 13:33; Start 09/25/19 at 14:00; Stop 09/28/19 at 08:30; Status DC Midazolam HCl (Versed) 2 mg STK-MED ONCE .ROUTE ; Start 09/25/19 at 14:47; Stop 09/25/19 at 14:48; Status DC Fentanyl Citrate (Fentanyl 2ml Vial) 100 mcg STK-MED ONCE .ROUTE ; Start 09/25/19 at 14:47; Stop 09/25/19 at 14:48; Status DC Flumazenil (Romazicon) 0.5 mg STK-MED ONCE IV ; Start 09/25/19 at 14:48; Stop 09/25/19 at 14:48; Status DC Naloxone HCl (Narcan) 0.4 mg STK-MED ONCE .ROUTE ; Start 09/25/19 at 14:48; Stop 09/25/19 at 14:48; Status DC Lidocaine HCl (Lidocaine 1% 20ml Vial) 20 ml STK-MED ONCE .ROUTE ; Start 09/25/19 at 14:48; Stop 09/25/19 at 14:48; Status DC Midazolam HCl (Versed) 2 mg 1X ONCE IV Last administered on 09/25/19at 15:28; Start 09/25/19 at 15:00; Stop 09/25/19 at 15:01; Status DC Fentanyl Citrate (Fentanyl 2ml Vial) 100 mcg 1X ONCE IV Last administered on 09/25/19at 15:28; Start 09/25/19 at 15:00; Stop 09/25/19 at 15:01; Status DC Lidocaine HCl (Lidocaine 1% 20ml Vial) 20 ml 1X ONCE INJ Last administered on 09/25/19at 15:30; Start 09/25/19 at 15:00; Stop 09/25/19 at 15:01; Status DC Sodium Chloride 1,000 ml @ 100 mls/hr Q10H IV Last administered on 10/04/19at 07:30; Start 09/25/19 at 20:00; Stop 10/04/19 at 11:26; Status DC Sodium Bicarbonate (Sodium Bicarb Adult 8.4% Syr) 50 meq 1X ONCE IV Last administered on 09/25/19at 21:47; Start 09/25/19 at 22:00; Stop 09/25/19 at 22:01; Status DC Potassium Acetate 40 meq/Magnesium Sulfate 5 meq/ Multivitamins 10 ml/Chromium/ Copper/Manganese/ Seleni/Zn 1 ml/ Insulin Human Regular 30 unit/ Total Parenteral Nutrition/Amino Acids/Dextrose/ Fat Emulsion Intravenous 1,920 ml @ 80 mls/hr TPN CONT IV Last administered on 09/26/19at 22:28; Start 09/26/19 at 22:00; Stop 09/27/19 at 21:59; Status DC Sodium Chloride 500 ml @ 500 mls/hr 1X ONCE IV Last administered on 09/27/19at 06:39; Start 09/27/19 at 06:45; Stop 09/27/19 at 07:44; Status DC Potassium Acetate 40 meq/Magnesium Sulfate 5 meq/ Multivitamins 10 ml/Chromium/ Copper/Manganese/ Seleni/Zn 1 ml/ Insulin Human Regular 30 unit/ Total Parenteral Nutrition/Amino Acids/Dextrose/ Fat Emulsion Intravenous 1,920 ml @ 80 mls/hr TPN CONT IV Last administered on 09/27/19at 22:03; Start 09/27/19 at 22:00; Stop 09/28/19 at 21:59; Status DC Metoprolol Tartrate (Lopressor Vial) 5 mg PRN Q6HRS PRN IVP HYPERTENSION Last administered on 10/06/19at 10:14; Start 09/28/19 at 09:00 Potassium Acetate 40 meq/Magnesium Sulfate 5 meq/ Multivitamins 10 ml/Chromium/ Copper/Manganese/ Seleni/Zn 1 ml/ Insulin Human Regular 30 unit/ Total Parenteral Nutrition/Amino Acids/Dextrose/ Fat Emulsion Intravenous 1,920 ml @ 80 mls/hr TPN CONT IV Last administered on 09/28/19at 21:26; Start 09/28/19 at 22:00; Stop 09/29/19 at 21:59; Status DC Potassium Acetate 40 meq/Magnesium Sulfate 5 meq/ Multivitamins 10 ml/Chromium/ Copper/Manganese/ Seleni/Zn 1 ml/ Insulin Human Regular 30 unit/ Total Parenteral Nutrition/Amino Acids/Dextrose/ Fat Emulsion Intravenous 1,920 ml @ 80 mls/hr TPN CONT IV Last administered on 09/29/19at 23:23; Start 09/29/19 at 22:00; Stop 09/30/19 at 21:59; Status DC Potassium Acetate 40 meq/Magnesium Sulfate 5 meq/ Multivitamins 10 ml/Chromium/ Copper/Manganese/ Seleni/Zn 1 ml/ Insulin Human Regular 30 unit/ Total Parenteral Nutrition/Amino Acids/Dextrose/ Fat Emulsion Intravenous 1,920 ml @ 80 mls/hr TPN CONT IV Last administered on 09/30/19at 21:35; Start 09/30/19 at 22:00; Stop 10/01/19 at 21:59; Status DC Furosemide (Lasix) 20 mg 1X ONCE IVP Last administered on 10/01/19at 06:26; Start 10/01/19 at 06:15; Stop 10/01/19 at 06:16; Status DC Methylprednisolone Sodium Succinate (SOLU-Medrol 125MG VIAL) 125 mg 1X ONCE IV Last administered on 10/01/19at 06:26; Start 10/01/19 at 06:15; Stop 10/01/19 at 06:16; Status DC Albuterol/ Ipratropium (Duoneb) 3 ml Q4HRS NEB Last administered on 10/12/19at 07:25; Start 10/01/19 at 08:00 Fentanyl Citrate 30 ml @ 0 mls/hr CONT PRN IV SEE PROTOCOL Last administered on 10/11/19at 23:29; Start 10/01/19 at 06:00 Propofol 100 ml @ 0 mls/hr CONT PRN IV SEE PROTOCOL Last administered on at 23:50; Start 10/01/19 at 06:00 Fentanyl Citrate (Fentanyl 2ml Vial) 25 mcg PRN Q1HR PRN IV SEE COMMENTS; Start 10/01/19 at 06:00 Fentanyl Citrate (Fentanyl 2ml Vial) 50 mcg PRN Q1HR PRN IV SEE COMMENTS; Start 10/01/19 at 06:00 Chlorhexidine Gluconate (Peridex) 15 ml BID MM ; Start 10/01/19 at 09:00; Stop 10/01/19 at 07:58; Status DC Potassium Acetate 40 meq/Magnesium Sulfate 5 meq/ Multivitamins 10 ml/Chromium/ Copper/Manganese/ Seleni/Zn 1 ml/ Insulin Human Regular 30 unit/ Total Parenteral Nutrition/Amino Acids/Dextrose/ Fat Emulsion Intravenous 1,920 ml @ 80 mls/hr TPN CONT IV Last administered on 10/01/19at 21:19; Start 10/01/19 at 22:00; Stop 10/02/19 at 21:59; Status DC Acetylcysteine (Mucomyst 20% Resp Treatment) 600 mg BID NEB Last administered on 10/07/19at 09:33; Start 10/01/19 at 21:00; Stop 10/07/19 at 10:39; Status DC Magnesium Sulfate 100 ml @ 25 mls/hr 1X ONCE IV Last administered on 10/01/19at 15:48; Start 10/01/19 at 15:45; Stop 10/01/19 at 19:44; Status DC Potassium Acetate 40 meq/Magnesium Sulfate 5 meq/ Multivitamins 10 ml/Chromium/ Copper/Manganese/ Seleni/Zn 1 ml/ Insulin Human Regular 30 unit/ Total Parenteral Nutrition/Amino Acids/Dextrose/ Fat Emulsion Intravenous 1,920 ml @ 80 mls/hr TPN CONT IV Last administered on 10/02/19at 21:35; Start 10/02/19 at 22:00; Stop 10/03/19 at 21:59; Status DC Potassium Chloride/Water 100 ml @ 100 mls/hr Q1H IV Last administered on 10/03/19at 08:31; Start 10/03/19 at 07:00; Stop 10/03/19 at 08:59; Status DC Potassium Acetate 40 meq/Magnesium Sulfate 5 meq/ Multivitamins 10 ml/Chromium/ Copper/Manganese/ Seleni/Zn 1 ml/ Insulin Human Regular 30 unit/ Total Parenteral Nutrition/Amino Acids/Dextrose/ Fat Emulsion Intravenous 1,920 ml @ 80 mls/hr TPN CONT IV Last administered on 10/03/19at 21:54; Start 10/03/19 at 22:00; Stop 10/04/19 at 19:34; Status DC Lidocaine HCl (Buffered Lidocaine 1%) 3 ml STK-MED ONCE .ROUTE ; Start 10/03/19 at 12:14; Stop 10/03/19 at 12:14; Status DC Lidocaine HCl (Buffered Lidocaine 1%) 3 ml 1X ONCE IJ Last administered on 10/03/19at 13:11; Start 10/03/19 at 13:00; Stop 10/03/19 at 13:01; Status DC Magnesium Sulfate 50 ml @ 25 mls/hr 1X ONCE IV ; Start 10/04/19 at 08:15; Stop 10/04/19 at 10:14; Status DC Potassium Acetate 40 meq/Magnesium Sulfate 10 meq/ Multivitamins 10 ml/Chromium/ Copper/Manganese/ Seleni/Zn 1 ml/ Insulin Human Regular 20 unit/ Total Parenteral Nutrition/Amino Acids/Dextrose/ Fat Emulsion Intravenous 1,920 ml @ 80 mls/hr TPN CONT IV Last administered on 10/04/19at 21:32; Start 10/04/19 at 22:00; Stop 10/05/19 at 21:59; Status DC Potassium Chloride/Water 100 ml @ 100 mls/hr Q1H IV Last administered on 10/04at 09:12; Start 10/05/19 at 08:00; Stop 10/05/19 at 09:59; Status DC Alteplase, Recombinant (Cathflo For Central Catheter Clearance) 4 mg 1X ONCE INT CAT ; Start 10/05/19 at 09:15; Stop 10/05/19 at 09:16; Status UNV Alteplase, Recombinant (Cathflo For Central Catheter Clearance) 4 mg 1X ONCE INT CAT ; Start 10/05/19 at 09:15; Stop 10/05/19 at 09:16; Status UNV Alteplase, Recombinant (Cathflo For Central Catheter Clearance) 4 mg 1X ONCE INT CAT ; Start 10/05/19 at 09:15; Stop 10/05/19 at 09:16; Status UNV Alteplase, Recombinant 4 mg/ Sodium Chloride 20 ml @ 20 mls/hr 1X ONCE IV Last administered on 10/05/19at 10:10; Start 10/05/19 at 10:00; Stop 10/05/19 at 10:59; Status DC Alteplase, Recombinant 4 mg/ Sodium Chloride 20 ml @ 20 mls/hr 1X ONCE IV Last administered on 10/05/19at 10:09; Start 10/05/19 at 10:00; Stop 10/05/19 at 10:59; Status DC Alteplase, Recombinant 4 mg/ Sodium Chloride 20 ml @ 20 mls/hr 1X ONCE IV Last administered on 10/05/19at 10:09; Start 10/05/19 at 10:00; Stop 10/05/19 at 10:59; Status DC Potassium Acetate 60 meq/Magnesium Sulfate 10 meq/ Multivitamins 10 ml/Chromium/ Copper/Manganese/ Seleni/Zn 1 ml/ Insulin Human Regular 20 unit/ Total Parenteral Nutrition/Amino Acids/Dextrose/ Fat Emulsion Intravenous 1,920 ml @ 80 mls/hr TPN CONT IV Last administered on 10/05/19at 21:55; Start 10/05/19 at 22:00; Stop 10/06/19 at 21:59; Status DC Albumin Human 500 ml @ 125 mls/hr 1X ONCE IV Last administered on 10/06/19at 12:01; Start 10/06/19 at 11:15; Stop 10/06/19 at 15:14; Status DC Sodium Chloride 500 ml @ 500 mls/hr 1X ONCE IV Last administered on 10/06/19at 13:50; Start 10/06/19 at 11:15; Stop 10/06/19 at 12:14; Status DC Potassium Acetate 60 meq/Magnesium Sulfate 14 meq/ Multivitamins 10 ml/Chromium/ Copper/Manganese/ Seleni/Zn 1 ml/ Insulin Human Regular 20 unit/ Total Parenteral Nutrition/Amino Acids/Dextrose/ Fat Emulsion Intravenous 1,920 ml @ 80 mls/hr TPN CONT IV Last administered on 10/06/19at 22:26; Start 10/06/19 at 22:00; Stop 10/07/19 at 21:59; Status DC Ciprofloxacin/ Dextrose 200 ml @ 200 mls/hr Q12HR IV Last administered on 10/12/19at 08:05; Start 10/06/19 at 21:00 Albumin Human 250 ml @ 62.5 mls/hr 1X ONCE IV Last administered on 10/07/19at 11:09; Start 10/07/19 at 11:00; Stop 10/07/19 at 14:59; Status DC Furosemide (Lasix) 20 mg 1X ONCE IVP Last administered on 10/07/19at 14:52; Start 10/07/19 at 10:45; Stop 10/07/19 at 10:49; Status DC Potassium Acetate 60 meq/Magnesium Sulfate 14 meq/ Multivitamins 10 ml/Chromium/ Copper/Manganese/ Seleni/Zn 1 ml/ Insulin Human Regular 15 unit/ Total Parenteral Nutrition/Amino Acids/Dextrose/ Fat Emulsion Intravenous 1,920 ml @ 80 mls/hr TPN CONT IV Last administered on 10/07/19at 22:08; Start 10/07/19 at 22:00; Stop 10/08/19 at 21:59; Status DC Potassium Acetate 60 meq/Magnesium Sulfate 14 meq/ Multivitamins 10 ml/Chromium/ Copper/Manganese/ Seleni/Zn 1 ml/ Insulin Human Regular 15 unit/ Total Parenteral Nutrition/Amino Acids/Dextrose/ Fat Emulsion Intravenous 1,920 ml @ 80 mls/hr TPN CONT IV Last administered on 10/08/19at 22:12; Start 10/08/19 at 22:00; Stop 10/09/19 at 21:59; Status DC Potassium Acetate 60 meq/Magnesium Sulfate 14 meq/ Multivitamins 10 ml/Chromium/ Copper/Manganese/ Seleni/Zn 1 ml/ Insulin Human Regular 15 unit/ Total Parenteral Nutrition/Amino Acids/Dextrose/ Fat Emulsion Intravenous 1,920 ml @ 80 mls/hr TPN CONT IV Last administered on 10/09/19at 22:22; Start 10/09/19 at 22:00; Stop 10/10/19 at 21:59; Status DC Furosemide (Lasix) 20 mg 1X ONCE IVP Last administered on 10/10/19at 11:07; Start 10/10/19 at 10:30; Stop 10/10/19 at 10:34; Status DC Potassium Acetate 60 meq/Magnesium Sulfate 14 meq/ Multivitamins 10 ml/Chromium/ Copper/Manganese/ Seleni/Zn 1 ml/ Insulin Human Regular 15 unit/ Sodium Chloride 20 meq/Total Parenteral Nutrition/Amino Acids/Dextrose/ Fat Emulsion Intravenous 1,920 ml @ 80 mls/hr TPN CONT IV Last administered on 10/10/19at 21:54; Start 10/10/19 at 22:00; Stop 10/11/19 at 21:59; Status DC Potassium Acetate 30 meq/Magnesium Sulfate 14 meq/ Multivitamins 10 ml/Chromium/ Copper/Manganese/ Seleni/Zn 1 ml/ Insulin Human Regular 15 unit/ Sodium Chloride 20 meq/Potassium Chloride 30 meq/ Total Parenteral Nutrition/Amino Acids/Dextrose/ Fat Emulsion Intravenous 1,920 ml @ 80 mls/hr TPN CONT IV Last administered on 10/11/19at 21:46; Start 10/11/19 at 22:00; Stop 10/12/19 at 21:59 Active Scripts Active Reported Bisoprolol Fumarate 5 Mg Tablet 10 Mg PO DAILY Vitals/I & O Vital Sign - Last 24 Hours 10/11/19 10/11/19 10/11/19 10/11/19 10:02 11:00 12:00 12:00 Temp 98.9 98.9 Pulse 110 116 110 Resp 22 22 22 B/P (MAP) 95/71 (79) 113/80 (91) Pulse Ox 98 98 98 O2 Delivery Tracheal Collar Tracheal Collar Tracheal Collar Trach Collar 10/11/19 10/11/19 10/11/19 10/11/19 12:27 13:00 14:00 15:00 Pulse 124 118 116 Resp 22 20 26 B/P (MAP) 140/90 (107) 110/64 (79) 109/61 (77) Pulse Ox 98 98 98 O2 Delivery Tracheal Collar Tracheal Collar Tracheal Collar Tracheal Collar O2 Flow Rate 8.0 10/11/19 10/11/19 10/11/19 10/11/19 15:26 16:00 16:00 17:00 Temp 99.1 99.1 Pulse 105 111 Resp 22 B/P (MAP) 105/66 (79) 113/71 (85) Pulse Ox 97 98 O2 Delivery Tracheal Collar Trach Collar Tracheal Collar Tracheal Collar O2 Flow Rate 8.0 10/11/19 10/11/19 10/11/19 10/11/19 18:00 19:00 19:56 20:00 Pulse 110 111 Resp 18 28 B/P (MAP) 114/67 (83) 113/72 (86) Pulse Ox 98 94 93 O2 Delivery Tracheal Collar Tracheal Collar Tracheal Collar Trach Collar O2 Flow Rate 8.0 10/11/19 10/11/19 10/11/19 10/11/19 20:00 21:00 22:00 23:00 Temp 97.2 97.2 Pulse 110 105 108 106 Resp 20 20 30 19 B/P (MAP) 125/81 (96) 116/72 (87) 94/56 (69) 114/67 (83) Pulse Ox 96 99 88 100 O2 Delivery Tracheal Collar Tracheal Collar Tracheal Collar Tracheal Collar 10/11/19 10/11/19 10/11/19 10/12/19 23:29 23:30 23:59 00:00 Resp 20 20 Pulse Ox 93 99 99 O2 Delivery Tracheal Collar Tracheal Collar Trach Collar O2 Flow Rate 8.0 8.0 8.0 10/12/19 10/12/19 10/12/19 10/12/19 00:01 01:00 02:00 03:00 Temp 97.7 97.7 Pulse 103 107 124 119 Resp 19 21 27 24 B/P (MAP) 94/58 (70) 102/69 (80) 158/95 (116) 105/75 (85) Pulse Ox 100 98 98 98 O2 Delivery Tracheal Collar Tracheal Collar Tracheal Collar Tracheal Collar 10/12/19 10/12/19 10/12/19 10/12/19 04:00 04:00 04:00 05:00 Temp 99.9 99.9 Pulse 114 124 Resp 24 29 B/P (MAP) 103/71 (82) 106/64 (78) Pulse Ox 99 100 87 O2 Delivery Tracheal Collar Tracheal Collar Trach Collar Tracheal Collar O2 Flow Rate 8.0 10/12/19 10/12/19 10/12/19 10/12/19 06:00 07:00 07:25 08:00 Pulse 122 122 125 Resp 29 21 22 B/P (MAP) 109/63 (78) 97/82 (87) 113/76 (88) Pulse Ox 87 99 98 98 O2 Delivery Tracheal Collar Tracheal Collar Tracheal Collar Tracheal Collar O2 Flow Rate 8.0 10/12/19 08:00 O2 Delivery Trach Collar Intake and Output 10/11/19 10/11/19 10/12/19 15:00 23:00 07:00 Intake Total 1503 ml 228.4 ml Output Total 510 ml 735 ml 960 ml Balance -510 ml 768 ml -731.6 ml Hemodynamically unstable?: No Is patient in severe pain?: No Is NPO status required?: No CARIN FERNANDEZ MD Oct 12, 2019 09:45
[2019-10-12] MEDS: TPN PER PHARMACY MC PRN (09:46)
--- NOTE | 2019-10-12 09:50 | NUR ---
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, 8 inches Weight: 87.5 kg Current diet: NPO LABS: Sodium: 135 Potassium: 4.3 Chloride: 99 Calcium: 10.4 Corrected Calcium: 12.72 Magnesium: 2.1 CO2: 34 SCr: 0.7 Glucose: 130-157 Albumin: 1.1 AST: 23 ALT: 20 TPN FORMULA: TPN TYPE: Central Continuous AMINO ACIDS: 80 gm DEXTROSE: 250 gm LIPIDS: 20 gm SODIUM CHLORIDE: 80 mEq POTASSIUM CHLORIDE: 30 mEq POTASSIUM ACETATE: 30 mEq MAGNESIUM: 14 mEq INSULIN: 15 units MULTIPLE VITAMIN: 10 ml TRACE ELEMENTS: 1 ml(s) TPN PLAN: Increase sodium in TPN to 80mEq R: Change TPN per plan and ordered formula Will monitor electrolytes, glucose, and tolerance to TPN. Raeann Mcdonnell Katya, 10/12/19 [id number]
--- NOTE | 2019-10-12 10:18 | PDOC ---
PULMONARY PROGRESS NOTES Subjective off vent ,ct drainage 200 cc/24 hrs Patient intubated on 07/10 , s/p trach 07/24, transferred back to ICU 09/22 for syncope with collapse developed anemia, blood drainage from RLQ abdomen drain site, and surrounding firmness / developed septic shock 09/24 from abdomen source, required levo 09/24 s/p 3 new drains 09/24 with brown color drainage s/p left chest tube, draining Vitals Vital Signs Date Time Temp Pulse Resp B/P (MAP) Pulse Ox O2 Delivery O2 Flow Rate FiO2 10/12/19 10:00 120 21 123/72 (89) 98 Tracheal Collar 10/12/19 09:00 99.3 99.3 10/12/19 07:25 8.0 Comments awake,no soa General: Alert, No acute distress HEENT: Other (nc at perrl nose clear neck trach site ok no lab no thyromegaly) Lungs: Other (diminshed in bases, Rhonci in LLL) Cardiovascular: S1, S2 Abdomen: Soft, Non-tender, Other (bleeding from Sx. site RLQ and firmness) Extremities: Other (+1 BLE edema) Skin: Warm, Dry Labs Laboratory Tests Test 10/10/19 11:17 10/10/19 17:15 10/11/19 06:28 10/11/19 12:22 Glucose (Fingerstick) 183 mg/dL (70-99) 149 mg/dL (70-99) 101 mg/dL (70-99) 156 mg/dL (70-99) Sodium Level 136 mmol/L (136-145) Potassium Level 4.3 mmol/L (3.5-5.1) Chloride Level 99 mmol/L (98-107) Carbon Dioxide Level 33 mmol/L (21-32) Anion Gap 4 (6-14) Blood Urea Nitrogen 15 mg/dL (7-20) Creatinine 0.7 mg/dL (0.6-1.0) Estimated GFR (Cockcroft-Gault) 88.9 Glucose Level 109 mg/dL (70-99) Calcium Level 10.1 mg/dL (8.5-10.1) Triglycerides Level 174 mg/dL (0-150) Test 10/11/19 17:01 10/12/19 00:36 10/12/19 06:15 10/12/19 06:20 Glucose (Fingerstick) 157 mg/dL (70-99) 141 mg/dL (70-99) 133 mg/dL (70-99) White Blood Count 13.2 x10^3/uL (4.0-11.0) Red Blood Count 3.41 x10^6/uL (3.50-5.40) Hemoglobin 9.4 g/dL (12.0-15.5) Hematocrit 29.0 % (36.0-47.0) Mean Corpuscular Volume 85 fL (79-100) Mean Corpuscular Hemoglobin 28 pg (25-35) Mean Corpuscular Hemoglobin Concent 33 g/dL (31-37) Red Cell Distribution Width 17.5 % (11.5-14.5) Platelet Count 449 x10^3/uL (140-400) Neutrophils (%) (Auto) 81 % (31-73) Lymphocytes (%) (Auto) 11 % (24-48) Monocytes (%) (Auto) 6 % (0-9) Eosinophils (%) (Auto) 1 % (0-3) Basophils (%) (Auto) 0 % (0-3) Neutrophils # (Auto) 10.8 x10^3/uL (1.8-7.7) Lymphocytes # (Auto) 1.5 x10^3/uL (1.0-4.8) Monocytes # (Auto) 0.8 x10^3/uL (0.0-1.1) Eosinophils # (Auto) 0.1 x10^3/uL (0.0-0.7) Basophils # (Auto) 0.0 x10^3/uL (0.0-0.2) Prothrombin Time 14.0 SEC (11.7-14.0) Prothromb Time International Ratio 1.1 (0.8-1.1) Sodium Level 135 mmol/L (136-145) Potassium Level 4.3 mmol/L (3.5-5.1) Chloride Level 99 mmol/L (98-107) Carbon Dioxide Level 34 mmol/L (21-32) Anion Gap 2 (6-14) Blood Urea Nitrogen 13 mg/dL (7-20) Creatinine 0.7 mg/dL (0.6-1.0) Estimated GFR (Cockcroft-Gault) 88.9 BUN/Creatinine Ratio 19 (6-20) Glucose Level 130 mg/dL (70-99) Calcium Level 10.4 mg/dL (8.5-10.1) Phosphorus Level 4.2 mg/dL (2.6-4.7) Magnesium Level 2.1 mg/dL (1.8-2.4) Total Bilirubin 0.4 mg/dL (0.2-1.0) Aspartate Amino Transf (AST/SGOT) 23 U/L (15-37) Alanine Aminotransferase (ALT/SGPT) 20 U/L (14-59) Alkaline Phosphatase 255 U/L (46-116) Total Protein 4.8 g/dL (6.4-8.2) Albumin 1.1 g/dL (3.4-5.0) Albumin/Globulin Ratio 0.3 (1.0-1.7) Laboratory Tests Test 10/11/19 12:22 10/11/19 17:01 10/12/19 00:36 10/12/19 06:15 Glucose (Fingerstick) 156 mg/dL (70-99) 157 mg/dL (70-99) 141 mg/dL (70-99) White Blood Count 13.2 x10^3/uL (4.0-11.0) Red Blood Count 3.41 x10^6/uL (3.50-5.40) Hemoglobin 9.4 g/dL (12.0-15.5) Hematocrit 29.0 % (36.0-47.0) Mean Corpuscular Volume 85 fL (79-100) Mean Corpuscular Hemoglobin 28 pg (25-35) Mean Corpuscular Hemoglobin Concent 33 g/dL (31-37) Red Cell Distribution Width 17.5 % (11.5-14.5) Platelet Count 449 x10^3/uL (140-400) Neutrophils (%) (Auto) 81 % (31-73) Lymphocytes (%) (Auto) 11 % (24-48) Monocytes (%) (Auto) 6 % (0-9) Eosinophils (%) (Auto) 1 % (0-3) Basophils (%) (Auto) 0 % (0-3) Neutrophils # (Auto) 10.8 x10^3/uL (1.8-7.7) Lymphocytes # (Auto) 1.5 x10^3/uL (1.0-4.8) Monocytes # (Auto) 0.8 x10^3/uL (0.0-1.1) Eosinophils # (Auto) 0.1 x10^3/uL (0.0-0.7) Basophils # (Auto) 0.0 x10^3/uL (0.0-0.2) Prothrombin Time 14.0 SEC (11.7-14.0) Prothromb Time International Ratio 1.1 (0.8-1.1) Sodium Level 135 mmol/L (136-145) Potassium Level 4.3 mmol/L (3.5-5.1) Chloride Level 99 mmol/L (98-107) Carbon Dioxide Level 34 mmol/L (21-32) Anion Gap 2 (6-14) Blood Urea Nitrogen 13 mg/dL (7-20) Creatinine 0.7 mg/dL (0.6-1.0) Estimated GFR (Cockcroft-Gault) 88.9 BUN/Creatinine Ratio 19 (6-20) Glucose Level 130 mg/dL (70-99) Calcium Level 10.4 mg/dL (8.5-10.1) Phosphorus Level 4.2 mg/dL (2.6-4.7) Magnesium Level 2.1 mg/dL (1.8-2.4) Total Bilirubin 0.4 mg/dL (0.2-1.0) Aspartate Amino Transf (AST/SGOT) 23 U/L (15-37) Alanine Aminotransferase (ALT/SGPT) 20 U/L (14-59) Alkaline Phosphatase 255 U/L (46-116) Total Protein 4.8 g/dL (6.4-8.2) Albumin 1.1 g/dL (3.4-5.0) Albumin/Globulin Ratio 0.3 (1.0-1.7) Test 10/12/19 06:20 Glucose (Fingerstick) 133 mg/dL (70-99) Medications Active Scripts Medications Dose Route/Sig Max Daily Dose Days Date Category Bisoprolol Fumarate 5 Mg Tablet 10 Mg PO DAILY 07/04/19 Reported Comments CXR 10/09 poor insp effort/ increase effusion ct abdomen /pelvis 09/23 1. Removal of the percutaneous pigtail drainage catheters since the prior exam. Sequela of pancreatitis with extensive pseudocysts again demonstrated, the right-sided collections are slightly larger since the prior exam, the left-sided collections are stable. See above. 2. Moderate to large left pleural effusion with atelectasis and collapse of most of the left lower lobe, stable. Small right pleural effusion is stable. 3. Gallstone. ct chest 10/02 reviewed GRAM NEG COCCOBACILLI:MANY SQUAMOUS EPI CELL:RARE PMN (WBCs):FEW Unless otherwise specified, Testing Performed by: [address] [address] For Inquires, the Physician may contact the Microbiology department at [phone] RESPIRATORY CULTURE Final Final MANY GRAM NEGATIVE RODS on 10/03/19 at 1107 FINAL ID= [[email or web address]] MICRO CHARGES PSEUDOMONAS AERUGINOSA ANTIMICROBIAL SUSCEPTIBILITY Final Comment NEG ALEXANDRA 56 PSEUDOMONAS AERUGINOSA ANTIBIOTIC RESULT INTERPRETATION AMIKACIN <=16 S AZTREONAM <=4 S CEFTAZIDIME <=1 S CIPROFLOXACIN <=0.25 S CEFEPIME <=2 S CEFTAZIDIME/AVIBACTAM <=4 S GENTAMICIN <=2 S LEVOFLOXACIN <=0.5 S Impression . IMPRESSION: 1. Acute hypoxemic respiratory failure secondary to ARDS status post trach, developed anemia /, blood drainage from RLQ abdomen drain site, and surround ing firmness / developed septic shock / from abdomen source, required levo /7 s/p 3 new drains /7 with brown color drainage, on/off vent , on TS now 2. Gallstone pancreatitis, now with ongoing bleeding from prior drain. Anemic. s/p Tx multiple units over several days 3. septic shock/sepsis, recurrent 09/24, source abdomen. , off levo now, 4. Acute kidney injury-, Off HD--renal function decling. suspect JUANA on CKD due to hypotension , improved now 5. Acute gallstone pancreatitis. 6. Hypoalbuminemia. 7. Moderate persistent effusions, s/p left thora 08/29, reaccumulation of left effusion. O2 requirement not changed. 8. Fever- ,hypotension. suspect recurrent sepsis/ likely pancreatic source. Per ID, per surgery-- 9. Chronic anemia-- ongoing / s/p PRBC 10. Covid 19 testing negative 11. Moderate to large ascites-S/P paracentisis 12.S/P paracentisis with 4 liters removed on 08/03/19 13. S/P IR drain placement on 08/26/2019, removal, re inserted 09/24 14. Depression/Anxiety 15. Increase effusion, ? loculated/ s/p chest tube.. drainage slowing down. 200 cc /24 hr Plan . 1. TS as tolerated titrate fio2 to keep sat 94%, off vent 2. Follow all cultures/ PSA from pelvic drains. Abx per ID/ thoracentesis result transudate, await c/s, 3. Follow surgery recs-- Acute pancreatitis with persistent necrosis ---- 08/14 status post KAYLIN drain placement + C paropsilosis; 08/23 + yeast & high amylase; s/p additional drains on 08/25, removal of drains and now increase pseudocyst and increase fluid collection. likely infected fluid/ sepsis. on BS abx.follow surgery rec, planning surgical intervention next few weeks 4. Follow ID recs for ABX---- 5. Follow nephrology recs ----- 6. Continue TPN 7. monitor HGB, 4 units since 09/23--monitor HGB transfuse if less than 8.5 8 s/p thoracentesis, 08/29, 3 litres removed, s/p ct on 10/02. ct drainage, 180 cc over the past 24 hrs, suction -40, am cxr, flushed chest tube 10/09 9. Pt remains critically ill from severe necrotic pancreatis. Even with surgery prognosis grim. Surgery informed family. 10. lasix/albumin prn 11. sputum gram neg cocobacilli. anna sensitive DVT/GI PPX: protonix--- PT/OT D/W RN, RT VINAYAK LANDRUM MD Oct 12, 2019 10:18
--- NOTE | 2019-10-12 10:41 | PDOC ---
G I PROGRESS NOTE Subjective Asleep, not awakened. Objective Staff report no major changes. Occasional emesis. Not much out NG. Physical Exam Trached on vent. NG Review of Relevant I have reviewed the following items kolby (where applicable) has been applied. Labs Laboratory Tests Test 10/10/19 11:17 10/10/19 17:15 10/11/19 06:28 10/11/19 12:22 Glucose (Fingerstick) 183 mg/dL (70-99) 149 mg/dL (70-99) 101 mg/dL (70-99) 156 mg/dL (70-99) Sodium Level 136 mmol/L (136-145) Potassium Level 4.3 mmol/L (3.5-5.1) Chloride Level 99 mmol/L (98-107) Carbon Dioxide Level 33 mmol/L (21-32) Anion Gap 4 (6-14) Blood Urea Nitrogen 15 mg/dL (7-20) Creatinine 0.7 mg/dL (0.6-1.0) Estimated GFR (Cockcroft-Gault) 88.9 Glucose Level 109 mg/dL (70-99) Calcium Level 10.1 mg/dL (8.5-10.1) Triglycerides Level 174 mg/dL (0-150) Test 10/11/19 17:01 10/12/19 00:36 10/12/19 06:15 10/12/19 06:20 Glucose (Fingerstick) 157 mg/dL (70-99) 141 mg/dL (70-99) 133 mg/dL (70-99) White Blood Count 13.2 x10^3/uL (4.0-11.0) Red Blood Count 3.41 x10^6/uL (3.50-5.40) Hemoglobin 9.4 g/dL (12.0-15.5) Hematocrit 29.0 % (36.0-47.0) Mean Corpuscular Volume 85 fL (79-100) Mean Corpuscular Hemoglobin 28 pg (25-35) Mean Corpuscular Hemoglobin Concent 33 g/dL (31-37) Red Cell Distribution Width 17.5 % (11.5-14.5) Platelet Count 449 x10^3/uL (140-400) Neutrophils (%) (Auto) 81 % (31-73) Lymphocytes (%) (Auto) 11 % (24-48) Monocytes (%) (Auto) 6 % (0-9) Eosinophils (%) (Auto) 1 % (0-3) Basophils (%) (Auto) 0 % (0-3) Neutrophils # (Auto) 10.8 x10^3/uL (1.8-7.7) Lymphocytes # (Auto) 1.5 x10^3/uL (1.0-4.8) Monocytes # (Auto) 0.8 x10^3/uL (0.0-1.1) Eosinophils # (Auto) 0.1 x10^3/uL (0.0-0.7) Basophils # (Auto) 0.0 x10^3/uL (0.0-0.2) Prothrombin Time 14.0 SEC (11.7-14.0) Prothromb Time International Ratio 1.1 (0.8-1.1) Sodium Level 135 mmol/L (136-145) Potassium Level 4.3 mmol/L (3.5-5.1) Chloride Level 99 mmol/L (98-107) Carbon Dioxide Level 34 mmol/L (21-32) Anion Gap 2 (6-14) Blood Urea Nitrogen 13 mg/dL (7-20) Creatinine 0.7 mg/dL (0.6-1.0) Estimated GFR (Cockcroft-Gault) 88.9 BUN/Creatinine Ratio 19 (6-20) Glucose Level 130 mg/dL (70-99) Calcium Level 10.4 mg/dL (8.5-10.1) Phosphorus Level 4.2 mg/dL (2.6-4.7) Magnesium Level 2.1 mg/dL (1.8-2.4) Total Bilirubin 0.4 mg/dL (0.2-1.0) Aspartate Amino Transf (AST/SGOT) 23 U/L (15-37) Alanine Aminotransferase (ALT/SGPT) 20 U/L (14-59) Alkaline Phosphatase 255 U/L (46-116) Total Protein 4.8 g/dL (6.4-8.2) Albumin 1.1 g/dL (3.4-5.0) Albumin/Globulin Ratio 0.3 (1.0-1.7) Laboratory Tests Test 10/11/19 12:22 10/11/19 17:01 10/12/19 00:36 10/12/19 06:15 Glucose (Fingerstick) 156 mg/dL (70-99) 157 mg/dL (70-99) 141 mg/dL (70-99) White Blood Count 13.2 x10^3/uL (4.0-11.0) Red Blood Count 3.41 x10^6/uL (3.50-5.40) Hemoglobin 9.4 g/dL (12.0-15.5) Hematocrit 29.0 % (36.0-47.0) Mean Corpuscular Volume 85 fL (79-100) Mean Corpuscular Hemoglobin 28 pg (25-35) Mean Corpuscular Hemoglobin Concent 33 g/dL (31-37) Red Cell Distribution Width 17.5 % (11.5-14.5) Platelet Count 449 x10^3/uL (140-400) Neutrophils (%) (Auto) 81 % (31-73) Lymphocytes (%) (Auto) 11 % (24-48) Monocytes (%) (Auto) 6 % (0-9) Eosinophils (%) (Auto) 1 % (0-3) Basophils (%) (Auto) 0 % (0-3) Neutrophils # (Auto) 10.8 x10^3/uL (1.8-7.7) Lymphocytes # (Auto) 1.5 x10^3/uL (1.0-4.8) Monocytes # (Auto) 0.8 x10^3/uL (0.0-1.1) Eosinophils # (Auto) 0.1 x10^3/uL (0.0-0.7) Basophils # (Auto) 0.0 x10^3/uL (0.0-0.2) Prothrombin Time 14.0 SEC (11.7-14.0) Prothromb Time International Ratio 1.1 (0.8-1.1) Sodium Level 135 mmol/L (136-145) Potassium Level 4.3 mmol/L (3.5-5.1) Chloride Level 99 mmol/L (98-107) Carbon Dioxide Level 34 mmol/L (21-32) Anion Gap 2 (6-14) Blood Urea Nitrogen 13 mg/dL (7-20) Creatinine 0.7 mg/dL (0.6-1.0) Estimated GFR (Cockcroft-Gault) 88.9 BUN/Creatinine Ratio 19 (6-20) Glucose Level 130 mg/dL (70-99) Calcium Level 10.4 mg/dL (8.5-10.1) Phosphorus Level 4.2 mg/dL (2.6-4.7) Magnesium Level 2.1 mg/dL (1.8-2.4) Total Bilirubin 0.4 mg/dL (0.2-1.0) Aspartate Amino Transf (AST/SGOT) 23 U/L (15-37) Alanine Aminotransferase (ALT/SGPT) 20 U/L (14-59) Alkaline Phosphatase 255 U/L (46-116) Total Protein 4.8 g/dL (6.4-8.2) Albumin 1.1 g/dL (3.4-5.0) Albumin/Globulin Ratio 0.3 (1.0-1.7) Test 10/12/19 06:20 Glucose (Fingerstick) 133 mg/dL (70-99) Microbiology 10/06/19 Blood Culture - Final, Complete NO GROWTH AFTER 5 DAYS 10/03/19 Gram Stain - Final, Complete 10/03/19 Aerobic and Anaerobic Culture - Final, Complete 10/01/19 Gram Stain Evaluation - Final, Complete 10/01/19 Respiratory Culture - Final, Complete 10/01/19 Antimicrobic Susceptibility - Final, Complete 09/25/19 Urine Culture - Final, Complete 09/17/19 Gram Stain - Final, Complete 09/17/19 Aerobic Culture - Final, Complete Vitals/I & O Vital Sign - Last 24 Hours 10/11/19 10/11/19 10/11/19 10/11/19 11:00 12:00 12:00 12:27 Temp 98.9 98.9 Pulse 116 110 Resp 22 22 B/P (MAP) 113/80 (91) Pulse Ox 98 98 O2 Delivery Tracheal Collar Tracheal Collar Trach Collar Tracheal Collar O2 Flow Rate 8.0 10/11/19 10/11/19 10/11/19 10/11/19 13:00 14:00 15:00 15:26 Pulse 124 118 116 Resp 22 20 26 B/P (MAP) 140/90 (107) 110/64 (79) 109/61 (77) Pulse Ox 98 98 98 O2 Delivery Tracheal Collar Tracheal Collar Tracheal Collar Tracheal Collar O2 Flow Rate 8.0 10/11/19 10/11/19 10/11/19 10/11/19 16:00 16:00 17:00 18:00 Temp 99.1 99.1 Pulse 105 111 110 Resp 23 22 18 B/P (MAP) 105/66 (79) 113/71 (85) 114/67 (83) Pulse Ox 97 98 98 O2 Delivery Trach Collar Tracheal Collar Tracheal Collar Tracheal Collar 10/11/19 10/11/19 10/11/19 10/11/19 19:00 19:56 20:00 20:00 Temp 97.2 97.2 Pulse 111 110 Resp 28 20 B/P (MAP) 113/72 (86) 125/81 (96) Pulse Ox 94 93 96 O2 Delivery Tracheal Collar Tracheal Collar Trach Collar Tracheal Collar O2 Flow Rate 8.0 10/11/19 10/11/19 10/11/19 10/11/19 21:00 22:00 23:00 23:29 Pulse 105 108 106 Resp 20 30 19 20 B/P (MAP) 116/72 (87) 94/56 (69) 114/67 (83) Pulse Ox 99 88 100 93 O2 Delivery Tracheal Collar Tracheal Collar Tracheal Collar O2 Flow Rate 8.0 10/11/19 10/11/19 10/12/19 10/12/19 23:30 23:59 00:00 00:01 Temp 97.7 97.7 Pulse 103 Resp 20 19 B/P (MAP) 94/58 (70) Pulse Ox 99 99 100 O2 Delivery Tracheal Collar Tracheal Collar Trach Collar Tracheal Collar O2 Flow Rate 8.0 8.0 10/12/19 10/12/19 10/12/19 10/12/19 01:00 02:00 03:00 04:00 Pulse 107 124 119 Resp 27 24 B/P (MAP) 102/69 (80) 158/95 (116) 105/75 (85) Pulse Ox 98 98 98 99 O2 Delivery Tracheal Collar Tracheal Collar Tracheal Collar Tracheal Collar O2 Flow Rate 8.0 10/12/19 10/12/19 10/12/19 10/12/19 04:00 04:00 05:00 06:00 Temp 99.9 99.9 Pulse 114 124 122 Resp 24 29 29 B/P (MAP) 103/71 (82) 106/64 (78) 109/63 (78) Pulse Ox 100 87 87 O2 Delivery Tracheal Collar Trach Collar Tracheal Collar Tracheal Collar 10/12/19 10/12/19 10/12/19 10/12/19 07:00 07:25 08:00 08:00 Pulse 122 125 Resp 21 22 B/P (MAP) 97/82 (87) 113/76 (88) Pulse Ox 99 98 98 O2 Delivery Tracheal Collar Tracheal Collar Tracheal Collar Trach Collar O2 Flow Rate 8.0 10/12/19 10/12/19 09:00 10:00 Temp 99.3 99.3 Pulse 123 120 Resp 22 21 B/P (MAP) 117/57 (77) 123/72 (89) Pulse Ox 98 98 O2 Delivery Tracheal Collar Tracheal Collar Intake and Output 10/11/19 10/11/19 10/12/19 15:00 23:00 07:00 Intake Total 1503 ml 228.4 ml Output Total 510 ml 735 ml 960 ml Balance -510 ml 768 ml -731.6 ml Problem List Problems Medical Problems: (1) Acute pancreatitis Status: Acute (2) Cholelithiasis Status: Acute Assessment Biliary pancreatitis/pseudocysts. Stable on support. Plan of Care Note CPM Await upcoming surgery. Justicifation of Admission Dx: Justifications for Admission: Justification of Admission Dx: Yes MARY RIVAS MD Oct 12, 2019 10:41
[2019-10-12] MEDS: MICAFUNGIN 100 MG in IV DEXTROSE 5% 100ML 100 ML IV SCH (12:34)
--- NOTE | 2019-10-12 12:59 | PDOC ---
SURGICAL PROGRESS NOTE Subjective Pt sleeping in chair Vital Signs Vital Signs Date Time Temp Pulse Resp B/P (MAP) Pulse Ox O2 Delivery O2 Flow Rate FiO2 10/12/19 12:13 97 Tracheal Collar 8.0 10/12/19 12:00 99.0 123 22 120/75 (90) 99.0 I&O Intake and Output 10/12/19 07:00 Intake Total 1731.4 ml Output Total 2205 ml Balance -473.6 ml IV Total 1731.4 ml Output Urine Total 1705 ml Stool Total 200 ml Chest Tube Drainage Total 255 ml Drainage Total 45 ml General: No acute distress Labs Laboratory Tests Test 10/10/19 17:15 10/11/19 06:28 10/11/19 12:22 10/11/19 17:01 Glucose (Fingerstick) 149 mg/dL (70-99) 101 mg/dL (70-99) 156 mg/dL (70-99) 157 mg/dL (70-99) Sodium Level 136 mmol/L (136-145) Potassium Level 4.3 mmol/L (3.5-5.1) Chloride Level 99 mmol/L (98-107) Carbon Dioxide Level 33 mmol/L (21-32) Anion Gap 4 (6-14) Blood Urea Nitrogen 15 mg/dL (7-20) Creatinine 0.7 mg/dL (0.6-1.0) Estimated GFR (Cockcroft-Gault) 88.9 Glucose Level 109 mg/dL (70-99) Calcium Level 10.1 mg/dL (8.5-10.1) Triglycerides Level 174 mg/dL (0-150) Test 10/12/19 00:36 10/12/19 06:15 10/12/19 06:20 Glucose (Fingerstick) 141 mg/dL (70-99) 133 mg/dL (70-99) White Blood Count 13.2 x10^3/uL (4.0-11.0) Red Blood Count 3.41 x10^6/uL (3.50-5.40) Hemoglobin 9.4 g/dL (12.0-15.5) Hematocrit 29.0 % (36.0-47.0) Mean Corpuscular Volume 85 fL (79-100) Mean Corpuscular Hemoglobin 28 pg (25-35) Mean Corpuscular Hemoglobin Concent 33 g/dL (31-37) Red Cell Distribution Width 17.5 % (11.5-14.5) Platelet Count 449 x10^3/uL (140-400) Neutrophils (%) (Auto) 81 % (31-73) Lymphocytes (%) (Auto) 11 % (24-48) Monocytes (%) (Auto) 6 % (0-9) Eosinophils (%) (Auto) 1 % (0-3) Basophils (%) (Auto) 0 % (0-3) Neutrophils # (Auto) 10.8 x10^3/uL (1.8-7.7) Lymphocytes # (Auto) 1.5 x10^3/uL (1.0-4.8) Monocytes # (Auto) 0.8 x10^3/uL (0.0-1.1) Eosinophils # (Auto) 0.1 x10^3/uL (0.0-0.7) Basophils # (Auto) 0.0 x10^3/uL (0.0-0.2) Prothrombin Time 14.0 SEC (11.7-14.0) Prothromb Time International Ratio 1.1 (0.8-1.1) Sodium Level 135 mmol/L (136-145) Potassium Level 4.3 mmol/L (3.5-5.1) Chloride Level 99 mmol/L (98-107) Carbon Dioxide Level 34 mmol/L (21-32) Anion Gap 2 (6-14) Blood Urea Nitrogen 13 mg/dL (7-20) Creatinine 0.7 mg/dL (0.6-1.0) Estimated GFR (Cockcroft-Gault) 88.9 BUN/Creatinine Ratio 19 (6-20) Glucose Level 130 mg/dL (70-99) Calcium Level 10.4 mg/dL (8.5-10.1) Phosphorus Level 4.2 mg/dL (2.6-4.7) Magnesium Level 2.1 mg/dL (1.8-2.4) Total Bilirubin 0.4 mg/dL (0.2-1.0) Aspartate Amino Transf (AST/SGOT) 23 U/L (15-37) Alanine Aminotransferase (ALT/SGPT) 20 U/L (14-59) Alkaline Phosphatase 255 U/L (46-116) Total Protein 4.8 g/dL (6.4-8.2) Albumin 1.1 g/dL (3.4-5.0) Albumin/Globulin Ratio 0.3 (1.0-1.7) Laboratory Tests Test 10/11/19 17:01 10/12/19 00:36 10/12/19 06:15 10/12/19 06:20 Glucose (Fingerstick) 157 mg/dL (70-99) 141 mg/dL (70-99) 133 mg/dL (70-99) White Blood Count 13.2 x10^3/uL (4.0-11.0) Red Blood Count 3.41 x10^6/uL (3.50-5.40) Hemoglobin 9.4 g/dL (12.0-15.5) Hematocrit 29.0 % (36.0-47.0) Mean Corpuscular Volume 85 fL (79-100) Mean Corpuscular Hemoglobin 28 pg (25-35) Mean Corpuscular Hemoglobin Concent 33 g/dL (31-37) Red Cell Distribution Width 17.5 % (11.5-14.5) Platelet Count 449 x10^3/uL (140-400) Neutrophils (%) (Auto) 81 % (31-73) Lymphocytes (%) (Auto) 11 % (24-48) Monocytes (%) (Auto) 6 % (0-9) Eosinophils (%) (Auto) 1 % (0-3) Basophils (%) (Auto) 0 % (0-3) Neutrophils # (Auto) 10.8 x10^3/uL (1.8-7.7) Lymphocytes # (Auto) 1.5 x10^3/uL (1.0-4.8) Monocytes # (Auto) 0.8 x10^3/uL (0.0-1.1) Eosinophils # (Auto) 0.1 x10^3/uL (0.0-0.7) Basophils # (Auto) 0.0 x10^3/uL (0.0-0.2) Prothrombin Time 14.0 SEC (11.7-14.0) Prothromb Time International Ratio 1.1 (0.8-1.1) Sodium Level 135 mmol/L (136-145) Potassium Level 4.3 mmol/L (3.5-5.1) Chloride Level 99 mmol/L (98-107) Carbon Dioxide Level 34 mmol/L (21-32) Anion Gap 2 (6-14) Blood Urea Nitrogen 13 mg/dL (7-20) Creatinine 0.7 mg/dL (0.6-1.0) Estimated GFR (Cockcroft-Gault) 88.9 BUN/Creatinine Ratio 19 (6-20) Glucose Level 130 mg/dL (70-99) Calcium Level 10.4 mg/dL (8.5-10.1) Phosphorus Level 4.2 mg/dL (2.6-4.7) Magnesium Level 2.1 mg/dL (1.8-2.4) Total Bilirubin 0.4 mg/dL (0.2-1.0) Aspartate Amino Transf (AST/SGOT) 23 U/L (15-37) Alanine Aminotransferase (ALT/SGPT) 20 U/L (14-59) Alkaline Phosphatase 255 U/L (46-116) Total Protein 4.8 g/dL (6.4-8.2) Albumin 1.1 g/dL (3.4-5.0) Albumin/Globulin Ratio 0.3 (1.0-1.7) Problem List Problems Medical Problems: (1) Acute pancreatitis Status: Acute (2) Cholelithiasis Status: Acute Assessment/Plan plan xlap next week Justicifation of Admission Dx: Justifications for Admission: Justification of Admission Dx: Yes DAVON SIMMS MD Oct 12, 2019 12:59
[2019-10-12] MEDS ORDERED: FUROSEMIDE 40 MG/4 ML VIAL. IVP ONE (15:30)
[2019-10-12] MEDS ORDERED: ALBUMIN HUMAN 5% 250 ML IV ONE (15:30)
[2019-10-12] MEDS ORDERED: AMINO ACID IV SCH ×10 (22:00)
[2019-10-12] MEDS ORDERED: DEXTROSE 70% IV SCH ×10 (22:00)
[2019-10-12] MEDS ORDERED: TOTAL PARENTERAL NUTRITION IV SCH ×10 (22:00)
[2019-10-12] MEDS ORDERED: [UNRECOGNIZED DRUG - OTHER] IV SCH ×10 (22:00)
[2019-10-13] VITALS: BP 100/58
[2019-10-13 04:00] VITALS: BP 100/58
[2019-10-13] MEDS: IPRATRPIUM/ALBUTEROL 0.5/2.5MG 3 ML NEBU. NEB SCH ×6 (04:00→20:04)
[2019-10-13] MEDS: INSULIN LISPRO 300 UNITS/3 ML VIAL. SQ SCH ×4 (06:00→17:43)
--- NOTE | 2019-10-13 06:56 | RAD ---
Examination: Ultrasound abdomen complete HISTORY: History of pancreatitis COMPARISON: 08/22/2019 FINDINGS: The aorta, IVC and pancreas are not well-visualized due to bowel gas. Fluid collection identified anterior to the pancreas. Increased echogenicity identified in the liver likely hepatic steatosis. Gallstones identified within the gallbladder. The gallbladder wall thickness measures 4 mm. The common bile duct measures 4 mm in diameter. Right kidney measures 12.9 cm in length. Mild right-sided hydronephrosis. Mild ascites. Probable small right pleural effusion. IMPRESSION: 1. Cholelithiasis. Mild thickened appearance of the gallbladder wall. 2. Mild right hydronephrosis. 3. Fluid collection identified anterior to the pancreas. 4. Hepatic steatosis. Electronically signed by: Priyank Delgado MD (10/13/2019 6:53 AM) [id number]
[2019-10-13 08:00] VITALS: BP 105/59
[2019-10-13] MEDS: CIPROFLOXACIN 400MG PREMIX 200 ML IV SCH (08:27)
[2019-10-13] MEDS: MEROPENEM 1 GM in IV NORMAL SALINE 100ML 100 ML IV SCH (08:27)
[2019-10-13] MEDS: PANTOPRAZOLE IV PUSH 40 MG VIAL. IVP SCH (08:27)
--- NOTE | 2019-10-13 08:59 | PDOC ---
Infectious Disease Note Subjective Subjective Patient is awake says she is feeling better ROS ROS no n/v/d/pain Vital Sign Vital Signs Vital Signs Date Time Temp Pulse Resp B/P (MAP) Pulse Ox O2 Delivery O2 Flow Rate FiO2 10/13/19 08:19 97 Tracheal Collar 8.0 10/13/19 08:00 98.8 121 18 105/59 (74) 98.8 Physical Exam PHYSICAL EXAM GENERAL: Propped up in bed, resting quietly HEENT: NGT in place. NECK: Tracheostomy LUNGS: Diminished aeration bases, no accessory muscle use - CT on left with clear fluid HEART: S1, S2,regular ABDOMEN: Mild distention, bowel sounds present, soft, grimaces to palpation, drains x 3 : Lind ( 09/24) EXTREMITIES: + edema BLE SKIN: no signs of gen rash LUE-PICC (09/15) without signs of complications Labs Lab Laboratory Tests Test 10/12/19 18:04 10/13/19 01:01 10/13/19 06:16 Glucose (Fingerstick) 172 mg/dL (70-99) 134 mg/dL (70-99) 123 mg/dL (70-99) Micro Objective Assessment Fever intermittent could be from underlying pancreatitis vs aspiration ? Ileus with vomiting Abd distention - U/S and CT reviewed s/p 0.4 L of opaque, debris-containing ascites was removed 08/23 Acute pancreatitis with persistent necrosis - 08/14 status post KAYLIN drain placement + C paropsilosis; 08/23 + yeast & high amylase; s/p additional drains on 08/25 Anemia - S/p PRBCs Cholelithiasis with thickening of the gallbladder wall. Leucocytosis improved JUANA, hyperkalemia, Metabolic acidosis off dialysis Acute hypoxic resp failure ,bilateral pleural effusion and atelectasis hypocalcemia Prediabetes HTN s/p trach Plan Plan of Care d/c antibiotics , observe off Monitor labs/temp General surgery following Monitor drain output Maintain aspiration precaution Supportive care Contact islation for CRE/PACOO KIMMY JONES MD Oct 13, 2019 08:59
--- NOTE | 2019-10-13 09:30 | PDOC ---
PROGRESS NOTES Chief Complaint Chief Complaint impression History of Present Illness 48yo F w/ PMHx HTN, prediabetes who presented the emergency room complaints of abdominal pain. Patient described off and on 3 days. She states is constant, described as a squeezing sensation in a band-like distribution. + nausea, vomiting. She denies any fever or diarrhea. Patient denies any abdominal surgical procedures. She stateed is worse with movements, car ride. Pain initially was upper abdomen however now pretty much generalized. Last bowel movement was 07/03/2019. Nothing makes her pain better. Patient denies any shortness of breath. She does state the pain moves into her chest. Denies any headache or visual changes. Lipase 80990, AST 401, ALT 249, Bilirubin 1.4. CT abdomen confirms pancreatic inflammation, peripancreatic fluid and inflammatory changes around the pancreas consistent with pancreatitis. Cholelithiasis and 1.4cm uterine fibroid as well as possible left salpingitis. Admitted for further care Gallstone pancreatitis with necrosis. -CT A/P 09/23 showed multiple pseudocysts, slight larger on the right. s/p drains x , 09/24. + PSAE (MDRO-R Cefepime, Zosyn ALEXANDRA < 64) and yeast, -s/p drain 08/14. C. parapsilosis. s/p drain 08/23 + yeast & high amylase; s/p additional drain on 08/25. Drains removed. Ascites s/p paracentesis 08/02 & 08/23. C. parapsilosis JUANA. off HD. impression Acute hypoxic Respiratory failure required mechanical ventilation Tracheostomy bilateral pleural effusions/pulm edema s/p Throacentesis on 10/03/2019 Severe Acute gallstone pancreatitis (not a surgical candidate at this time) with necrosis Acute kidney failure now requiring dialysis Gallstones (Calculus of gallbladder with acute cholecystitis without obstruction) HTN Intractable pain Intractable nausea Covid 19 negative. Acute on chronic anemia EEG: No seizure activityFever - better currently - intermittent could be from underlying pancreatitis blood cults 08/21 - neg so far ? Ileus with vomiting Abd distention - U/S and CT reviewed s/p 0.4 L of opaque, debris-containing ascites was removed 08/23 Acute pancreatitis with persistent necrosis Gallstone pancreatitis with necrosis. -CT A/P 09/23 showed multiple pseudocysts, slight larger on the right. s/p drains x 3, 09/24. + PSAE (MDRO-R Cefepime, Zosyn ALEXANDRA < 64) and yeast, -s/p drain 08/14. C. parapsilosis. s/p drain 08/23 + yeast & high amylase; s/p additional drain on 08/25. Drains removed. Ascites s/p paracentesis 08/02 & 08/23. C. parapsilosis JUANA. off HD. A large fluid collection in the pancreatic bed has slightly decreased in size, described below, the pancreas itself is difficult to visualize, which could be due to necrosis or obscuration of pancreatic parenchyma from the surrounding fluid collection.10/02 - 08/14 status post KAYLIN drain placement + C paropsilosis. s/p additional drains 08/25 Anemia - S/p PRBCs Cholelithiasis with thickening of the gallbladder wall. Leucocytosis improving JUANA, hyperkalemia, Metabolic acidosis off dialysis hypocalcemia Prediabetes HTN s/p trach ESRD on HD Hyperglycemia severe protein-caloric malnutrition Moderate to large left pleural effusion with atelectasis and collapse of most of the left lower lobe, stable 10/05 FEVER 101, BLOOD CULTURE X 2 10/06 iv cipro added 10/07 vent fio2 35% 10/11 tentative surgery next week 10/12 FEN - PPX - SCDs, off lovenox currently, high risk for thrombosis but in light of her recent anemia and need for transfusion the risks do not outweigh benefits at this time. will continue to evaluate on a daily basis FULL CODE Dispo - ICU, critically ill BACK ON VENT 10/04 vent // no distress iv albumin 10/06 Continue meropenem, has MDRO PSAE September 24 Continue micafungin September 2410/[address] Servin--tentatively next week 37 MIN CC TIME History of Present Illness History of Present Illness 09/25: IR placed drain on 09/24. 4u PRBC after Hb drop. Hb 8.8 today. Off Levophed this morning. T-max 100.3. Much more lethargic today. CXR with left sided diffuse infiltrates. 09/26: Tachycardic overnight into the 140s. NGT clamped. On BIPAP currently. Drains with serosanguinous discharge. WBC 8, Tmax 99.6F. 09/27: Seen on trach shield in ICU. Hypertensive and tachycardic. Labs stable. blood stained drainage from drains. Afebrile. 09/28: Seen on trach shield in ICU. She is a bit confused, drowsy, but when sitting up is conversational and confusion somewhat clears. She is asking for more pain medication. Stable drains, still very tachy.Na 147 09/29: Patient vomited overnight. Aspirated. Tried to pull her trach out, she was told she would without her trach, she said "I know, I just want to go home". Hb 7.6. Afebrile, still very tachycardic. 1055ml out of right sided KAYLIN drain 09/30: Overnight hypoxic, on BIPAP. CXR with left sided white out lung. Significant mucous plug suctioned by RT with improvement in her ABG after 2 hours this morning. Not really active, tired, lethargic. 890ml out of drains past 24 hours. On vent. D/w daughter bedside. 10/01: Still on vent overnight with copious pulmonary drainage on suctioning. Labs stable, UOP stable 1L. Drain output still significant with 1505mL. She has shown her phone password [id number] and made it clear she does not want her daughters to access her phone at this time. 6:15: Patient quite frail, she has had such a lengthy hospital stay that she is certainly depressed and as documented 3 days ago is wanting to go home. Most likely patient is also tired of being hospitalized with an end point no where in sight. Reassurance and encouragement provided during my visit. Plans for thoracentesis later in the day 10/03: No acute events reported overnight, case discussed with nursing staff patient in no acute distress, complaints of the abdomimal pain during my visit, patient is quite depressed, reassurance has been provided, discussed with nursing staff at bedside, replace electrolytes 10/04 off vent / on TS , no distress 10/12 Patient seen and examined ICU BED [id number] prognosis Sputum from 09/30 - growing PSA - may be colonization I to Meropenem add Cipro Continue meropenem, has MDRP PSAE September 24 from abd cont micafungin September 24 bleeding from Sx. site RLQ and firmness)stable oncology consulted Cholelithiasis. Mild thickened appearance of the gallbladder wall. sono 10/12 Mild right hydronephrosis.Fluid collection identified anterior to the pancreas. ct drainage 200 cc/24 hrs d/c antibiotics , observe 10/12 cxr pending 10/12 36 MIN CC TIME Date: Aug 15, 2019 Pre-Op Diagnosis: Necrotizing pancreatitis Post-Op Diagnosis: same Procedure Performed: laparoscopic exploration Surgeon: Renzo Servin Asst: Dr. Arturo Harris Anesthesia Type: GETA plus local Blood Loss: 50 Specimans Obtained: cultures, debris Findings: 1000 cc ascites suctioned off, cultures sent, diffuse debris, obliteration of surgical planes preventing any meaningful exploration 09/19/2019 Patient seen and examined in the ICU She appears extremely ill She is tachypneic at 35 respirations per minute and tachycardic at 132 bpm She is extremely encephalopathic and shaky She appears clammy Chart reviewed Discussed with RN Prognosis extremely guarded at best 09/18/2019 Patient still in ICU Resting with no apparent distress Chart reviewed 09/17/2019 Patient seen and examined in the ICU She is wiping her face with a cough Discussed with RN Chart reviewed We hope to get her out of the ICU later today if possible 09/16/2019 Patient seen and examined in the ICU once again She is back on NG suction On IV Zosyn Has IV TPN Sedated with Precedex but anxious still Appears somewhat clammy and pale Chart reviewed Discussed with RN She remains critically ill BRIEF OPERATIVE NOTE Pre-Op Diagnosis Pancreatitis with pseudocysts, suspected infection Post-Op Diagnosis same Procedure Performed CT abdominal Drains x 3 Surgeon Tesfaye Anesthesia Type: Conscious Sedation Findings 3 abdominal drains, 14F, with turbid pancreatic fluid and necrotic debris in each. Complications No immediate 08/26: Patient today somewhat restless and having bilious secretions from ET tube, imaging studies ordered, discussed with [employer] consultant. Pretty poor prognosis, hopefully is not a fistula, poor surgical candidate. 08/27: Imaging with no acute events, she seems more stable today compared to yesterday. Encouraged as much activity as possible patient at high risk for severe depression. Vitals Vitals Vital Signs Date Time Temp Pulse Resp B/P (MAP) Pulse Ox O2 Delivery O2 Flow Rate FiO2 10/13/19 08:19 97 Tracheal Collar 8.0 10/13/19 08:00 98.8 121 18 105/59 (74) 98.8 Physical Exam Physical Exam GENERAL: Propped up in bed, resting quietly watching tv HEENT: 8 liters nc NECK: Tracheostomy LUNGS: Diminished aeration bases, no accessory muscle use - CT on left with clear fluid HEART: S1, S2,regular ABDOMEN: Mild distention, bowel sounds present, soft, grimaces to palpation, drains x 3 : Lind ( 09/24) EXTREMITIES: + edema BLE SKIN: no signs of gen rash LUE-PICC without signs of complications General: Alert, Oriented X3, Cooperative, No acute distress Heart: Regular rate (SR/ST), Other (distant heart sounds) Lungs: Other (diminshed in bases, Rhonci in LLL) Abdomen: Soft Extremities: No cyanosis, Other (3+ bilateral LE pitting edema) Skin: No rashes, No significant lesion Labs LABS Single AP view of the chest. Comparison: 10/06/2019. Indication: Follow-up effusions Findings: Tracheostomy tube nasogastric tube and left-sided PICC line are identified. The heart is enlarged but stable.. No pneumothorax. Left basilar chest tube is reidentified. No significant effusion is seen on the left side. There does appear to be increasing effusion on the right side with new atelectasis and effusion identified. Breast Impression: 1. Chest tube is seen in the left pleural base with no significant left-sided effusion. There does appear to be an increasing right-sided effusion with compressive atelectasis. Electronically signed by: Julio Farfan MD (10/10/2019 9:20 AM) [id number] DICTATED and SIGNED BY: JULIO FARFAN MD DATE: 10/10/19919 Examination: Ultrasound abdomen complete HISTORY: History of pancreatitis COMPARISON: 08/22/2019 FINDINGS: The aorta, IVC and pancreas are not well-visualized due to bowel gas. Fluid collection identified anterior to the pancreas. Increased echogenicity identified in the liver likely hepatic steatosis. Gallstones identified within the gallbladder. The gallbladder wall thickness measures 4 mm. The common bile duct measures 4 mm in diameter. Right kidney measures 12.9 cm in length. Mild right-sided hydronephrosis. Mild ascites. Probable small right pleural effusion. IMPRESSION: 1. Cholelithiasis. Mild thickened appearance of the gallbladder wall. 2. Mild right hydronephrosis. 3. Fluid collection identified anterior to the pancreas. 4. Hepatic steatosis. Electronically signed by: Priyank Delgado MD (10/13/2019 6:53 AM) [id number] DICTATED and SIGNED BY: PRIYANK DELGADO MD DATE: 10/13/19 0653 Laboratory Tests Test 10/12/19 18:04 10/13/19 01:01 10/13/19 06:16 Glucose (Fingerstick) 172 mg/dL (70-99) 134 mg/dL (70-99) 123 mg/dL (70-99) Assessment and Plan Assessmemt and Plan Problems Medical Problems: (1) Acute pancreatitis Status: Acute (2) Cholelithiasis Status: Acute Comment Review of Relevant I have reviewed the following items kolby (where applicable) has been applied. Labs Laboratory Tests Test 10/11/19 12:22 10/11/19 17:01 10/12/19 00:36 10/12/19 06:15 Glucose (Fingerstick) 156 mg/dL (70-99) 157 mg/dL (70-99) 141 mg/dL (70-99) White Blood Count 13.2 x10^3/uL (4.0-11.0) Red Blood Count 3.41 x10^6/uL (3.50-5.40) Hemoglobin 9.4 g/dL (12.0-15.5) Hematocrit 29.0 % (36.0-47.0) Mean Corpuscular Volume 85 fL (79-100) Mean Corpuscular Hemoglobin 28 pg (25-35) Mean Corpuscular Hemoglobin Concent 33 g/dL (31-37) Red Cell Distribution Width 17.5 % (11.5-14.5) Platelet Count 449 x10^3/uL (140-400) Neutrophils (%) (Auto) 81 % (31-73) Lymphocytes (%) (Auto) 11 % (24-48) Monocytes (%) (Auto) 6 % (0-9) Eosinophils (%) (Auto) 1 % (0-3) Basophils (%) (Auto) 0 % (0-3) Neutrophils # (Auto) 10.8 x10^3/uL (1.8-7.7) Lymphocytes # (Auto) 1.5 x10^3/uL (1.0-4.8) Monocytes # (Auto) 0.8 x10^3/uL (0.0-1.1) Eosinophils # (Auto) 0.1 x10^3/uL (0.0-0.7) Basophils # (Auto) 0.0 x10^3/uL (0.0-0.2) Prothrombin Time 14.0 SEC (11.7-14.0) Prothromb Time International Ratio 1.1 (0.8-1.1) Sodium Level 135 mmol/L (136-145) Potassium Level 4.3 mmol/L (3.5-5.1) Chloride Level 99 mmol/L (98-107) Carbon Dioxide Level 34 mmol/L (21-32) Anion Gap 2 (6-14) Blood Urea Nitrogen 13 mg/dL (7-20) Creatinine 0.7 mg/dL (0.6-1.0) Estimated GFR (Cockcroft-Gault) 88.9 BUN/Creatinine Ratio 19 (6-20) Glucose Level 130 mg/dL (70-99) Calcium Level 10.4 mg/dL (8.5-10.1) Phosphorus Level 4.2 mg/dL (2.6-4.7) Magnesium Level 2.1 mg/dL (1.8-2.4) Total Bilirubin 0.4 mg/dL (0.2-1.0) Aspartate Amino Transf (AST/SGOT) 23 U/L (15-37) Alanine Aminotransferase (ALT/SGPT) 20 U/L (14-59) Alkaline Phosphatase 255 U/L (46-116) Total Protein 4.8 g/dL (6.4-8.2) Albumin 1.1 g/dL (3.4-5.0) Albumin/Globulin Ratio 0.3 (1.0-1.7) Test 10/12/19 06:20 10/12/19 18:04 10/13/19 01:01 10/13/19 06:16 Glucose (Fingerstick) 133 mg/dL (70-99) 172 mg/dL (70-99) 134 mg/dL (70-99) 123 mg/dL (70-99) Laboratory Tests Test 10/12/19 18:04 10/13/19 01:01 10/13/19 06:16 Glucose (Fingerstick) 172 mg/dL (70-99) 134 mg/dL (70-99) 123 mg/dL (70-99) Microbiology 10/06/19 Blood Culture - Final, Complete NO GROWTH AFTER 5 DAYS 10/03/19 Gram Stain - Final, Complete 10/03/19 Aerobic and Anaerobic Culture - Final, Complete 10/01/19 Gram Stain Evaluation - Final, Complete 10/01/19 Respiratory Culture - Final, Complete 10/01/19 Antimicrobic Susceptibility - Final, Complete 09/25/19 Urine Culture - Final, Complete 09/17/19 Gram Stain - Final, Complete 09/17/19 Aerobic Culture - Final, Complete Medications Current Medications Sodium Chloride 1,000 ml @ 1,000 mls/hr Q1H IV Last administered on 07/04/19at 03:00; Start 07/04/19 at 03:00; Stop 07/04/19 at 03:59; Status DC Ondansetron HCl (Zofran) 4 mg 1X ONCE IVP Last administered on 07/04/19at 03:27; Start 07/04/19 at 03:00; Stop 07/04/19 at 03:01; Status DC Morphine Sulfate (Morphine Sulfate) 4 mg 1X ONCE IV ; Start 07/04/19 at 03:00; Stop 07/04/19 at 03:01; Status Cancel Ketorolac Tromethamine (Toradol 30mg Vial) 30 mg 1X ONCE IV Last administered on 07/04/19at 02:54; Start 07/04/19 at 03:00; Stop 07/04/19 at 03:01; Status DC Fentanyl Citrate (Fentanyl 2ml Vial) 25 mcg 1X ONCE IVP Last administered on 07/04/19at 03:23; Start 07/04/19 at 03:30; Stop 07/04/19 at 03:31; Status DC Fentanyl Citrate (Fentanyl 2ml Vial) 100 mcg STK-MED ONCE .ROUTE ; Start 07/04/19 at 03:18; Stop 07/04/19 at 03:18; Status DC Iohexol (Omnipaque 350 Mg/ml) 90 ml 1X ONCE IV Last administered on 07/04/19at 03:25; Start 07/04/19 at 03:30; Stop 07/04/19 at 03:31; Status DC Info (CONTRAST GIVEN -- Rx MONITORING) 1 each PRN DAILY PRN MC SEE COMMENTS; Start 07/04/19 at 03:30; Stop 07/06/19 at 03:29; Status DC Hydromorphone HCl (Dilaudid) 0.5 mg 1X ONCE IV Last administered on 07/04/19at 03:55; Start 07/04/19 at 04:30; Stop 07/04/19 at 04:32; Status DC Ondansetron HCl (Zofran) 4 mg PRN Q8HRS PRN IV NAUSEA/VOMITING 1ST CHOICE; Start 07/04/19 at 05:00; Stop 07/04/19 at 09:27; Status DC Morphine Sulfate (Morphine Sulfate) 2 mg PRN Q2HR PRN IV SEVERE PAIN 7-10 Last administered on 07/05/19at 12:26; Start 07/04/19 at 05:00; Stop 07/05/19 at 14:15; Status DC Sodium Chloride 1,000 ml @ 125 mls/hr Q8H IV Last administered on 07/04/19at 20:56; Start 07/04/19 at 05:00; Stop 07/05/19 at 04:59; Status DC Hydromorphone HCl (Dilaudid) 0.5 mg PRN Q3HRS PRN IV SEVERE PAIN 7-10 Last administered on 07/05/19at 10:06; Start 07/04/19 at 05:00; Stop 07/05/19 at 12:01; Status DC Piperacillin Sod/ Tazobactam Sod 4.5 gm/Sodium Chloride 100 ml @ 200 mls/hr 1X ONCE IV Last administered on 07/04/19at 05:44; Start 07/04/19 at 06:00; Stop 07/04/19 at 06:29; Status DC Ondansetron HCl (Zofran) 4 mg PRN Q4HRS PRN IV NAUSEA/VOMITING 1ST CHOICE Last administered on 10/11/19at 10:32; Start 07/04/19 at 09:30 Insulin Human Lispro (HumaLOG) 0-9 UNITS Q6HRS SQ Last administered on 10/12/19at 18:05; Start 07/04/19 at 09:30 Dextrose (Dextrose 50%-Water Syringe) 12.5 gm PRN Q15MIN PRN IV SEE COMMENTS; Start 07/04/19 at 09:30 Pantoprazole Sodium (PROTONIX VIAL for IV PUSH) 40 mg DAILYAC IVP Last administered on 10/13/19at 08:27; Start 07/04/19 at 11:30 Prochlorperazine Edisylate (Compazine) 10 mg PRN Q6HRS PRN IV NAUSEA/VOMITING, 2nd CHOICE Last administered on 10/12/19at 11:56; Start 07/04/19 at 17:45 Atenolol (Tenormin) 100 mg DAILY PO ; Start 07/05/19 at 09:00; Stop 07/04/19 at 20:08; Status DC Metoprolol Tartrate (Lopressor Vial) 2.5 mg Q6HRS IVP Last administered on 07/05/19at 05:51; Start 07/04/19 at 20:15; Stop 07/05/19 at 10:02; Status DC Metoprolol Tartrate (Lopressor Vial) 5 mg Q6HRS IVP Last administered on 07/14/19at 00:12; Start 07/05/19 at 10:15; Stop 07/16/19 at 08:48; Status DC Hydromorphone HCl (Dilaudid) 1 mg PRN Q3HRS PRN IV SEVERE PAIN 7-10 Last administered on 07/11/19at 05:13; Start 07/05/19 at 12:00; Stop 07/19/19 at 00:25; Status DC Lidocaine HCl (Buffered Lidocaine 1%) 3 ml STK-MED ONCE .ROUTE ; Start 07/05/19 at 12:55; Stop 07/05/19 at 12:56; Status DC Albumin Human 500 ml @ 125 mls/hr 1X ONCE IV Last administered on 07/05/19at 14:33; Start 07/05/19 at 14:30; Stop 07/05/19 at 18:32; Status DC Norepinephrine Bitartrate 8 mg/ Dextrose 258 ml @ 17.299 mls/ hr CONT PRN IV PER PROTOCOL Last administered on 08/02/19at 12:48; Start 07/05/19 at 15:30; Stop 08/05/19 at 09:19; Status DC Sodium Chloride 1,000 ml @ 125 mls/hr Q8H IV Last administered on 07/05/19at 21:04; Start 07/05/19 at 16:00; Stop 07/06/19 at 02:42; Status DC Albumin Human 500 ml @ 125 mls/hr PRN BID PRN IV After every 2L NSS & BP < 90mm Last administered on 09/24/19at 11:40; Start 07/05/19 at 16:00 Iohexol (Omnipaque 300 Mg/ml) 60 ml 1X ONCE IV Last administered on 07/05/19at 17:20; Start 07/05/19 at 17:00; Stop 07/05/19 at 17:01; Status DC Info (CONTRAST GIVEN -- Rx MONITORING) 1 each PRN DAILY PRN MC SEE COMMENTS; Start 07/05/19 at 17:00; Stop 07/07/19 at 16:59; Status DC Meropenem 1 gm/ Sodium Chloride 100 ml @ 200 mls/hr Q8HRS IV Last administered on 07/06/19at 05:45; Start 07/05/19 at 20:00; Stop 07/06/19 at 08:48; Status DC Furosemide (Lasix) 40 mg 1X ONCE IVP Last administered on 07/05/19at 22:12; Start 07/05/19 at 22:30; Stop 07/05/19 at 22:31; Status DC Calcium Chloride 1000 mg/Sodium Chloride 110 ml @ 220 mls/hr 1X ONCE IV Last administered on 07/05/19at 22:11; Start 07/05/19 at 22:30; Stop 07/05/19 at 22:59; Status DC Albuterol Sulfate (Ventolin Neb Soln) 2.5 mg 1X ONCE NEB Last administered on 07/06/19at 00:56; Start 07/05/19 at 22:30; Stop 07/05/19 at 22:31; Status DC Insulin Human Regular (HumuLIN R VIAL) 5 unit 1X ONCE IV Last administered on 07/05/19at 22:14; Start 07/05/19 at 22:30; Stop 07/05/19 at 22:31; Status DC Magnesium Sulfate 50 ml @ 25 mls/hr 1X ONCE IV Last administered on 07/06/19at 02:57; Start 07/06/19 at 03:00; Stop 07/06/19 at 04:59; Status DC Calcium Gluconate 1000 mg/Sodium Chloride 110 ml @ 220 mls/hr 1X ONCE IV Last administered on 07/06/19at 02:46; Start 07/06/19 at 03:00; Stop 07/06/19 at 03:29; Status DC Sodium Chloride 1,000 ml @ 200 mls/hr Q5H IV Last administered on 07/06/19at 02:46; Start 07/06/19 at 03:00; Stop 07/06/19 at 10:21; Status DC Calcium Gluconate 1000 mg/Sodium Chloride 110 ml @ 220 mls/hr 1X ONCE IV Last administered on 07/06/19at 03:21; Start 07/06/19 at 03:30; Stop 07/06/19 at 03:59; Status DC Sodium Bicarbonate 50 meq/Sodium Chloride 1,050 ml @ 75 mls/hr Q14H IV Last administered on 07/10/19at 21:10; Start 07/06/19 at 07:30; Stop 07/11/19 at 10:28; Status DC Calcium Gluconate 2000 mg/Sodium Chloride 120 ml @ 220 mls/hr 1X ONCE IV Last administered on 07/06/19at 09:05; Start 07/06/19 at 07:30; Stop 07/06/19 at 08:02; Status DC Lidocaine HCl (Xylocaine-Mpf 1% 2ml Vial) 2 ml STK-MED ONCE .ROUTE ; Start 07/06/19 at 08:47; Stop 07/06/19 at 08:47; Status DC Meropenem 500 mg/ Sodium Chloride 50 ml @ 100 mls/hr Q12HR IV Last administered on 07/11/19at 21:01; Start 07/06/19 at 18:00; Stop 07/12/19 at 07:58; Status DC Lidocaine HCl (Buffered Lidocaine 1%) 3 ml STK-MED ONCE .ROUTE ; Start 07/06/19 at 09:46; Stop 07/06/19 at 09:46; Status DC Lidocaine HCl (Buffered Lidocaine 1%) 6 ml 1X ONCE INJ Last administered on 07/06/19at 10:26; Start 07/06/19 at 10:15; Stop 07/06/19 at 10:16; Status DC Info (Tpn Per Pharmacy) 1 each PRN DAILY PRN MC SEE COMMENTS Last administered on 10/12/19at 09:46; Start 07/06/19 at 12:00 Sodium Chloride 1,000 ml @ 1,000 mls/hr Q1H PRN IV hypotension; Start 07/06/19 at 12:07; Stop 07/06/19 at 18:06; Status DC Diphenhydramine HCl (Benadryl) 25 mg 1X PRN PRN IV ITCHING; Start 07/06/19 at 12:15; Stop 07/07/19 at 12:14; Status DC Diphenhydramine HCl (Benadryl) 25 mg 1X PRN PRN IV ITCHING; Start 07/06/19 at 12:15; Stop 07/07/19 at 12:14; Status DC Sodium Chloride 1,000 ml @ 400 mls/hr Q2H30M PRN IV PATENCY; Start 07/06/19 at 12:07; Stop 07/07/19 at 00:06; Status DC Info (PHARMACY MONITORING -- do not chart) 1 each PRN DAILY PRN MC SEE COMMENTS; Start 07/06/19 at 12:15; Stop 07/08/19 at 08:13; Status DC Sodium Chloride 90 meq/Calcium Gluconate 10 meq/ Multivitamins 10 ml/Chromium/ Copper/Manganese/ Seleni/Zn 1 ml/ Total Parenteral Nutrition/Amino Acids/Dextrose/ Fat Emulsion Intravenous 55.005 ml @ 2.292 mls/hr TPN CONT IV ; Start 07/06/19 at 22:00; Stop 07/06/19 at 12:33; Status DC Info (Tpn Per Pharmacy) 1 each PRN DAILY PRN MC SEE COMMENTS; Start 07/06/19 at 12:30; Status UNV Sodium Chloride 90 meq/Calcium Gluconate 10 meq/ Multivitamins 10 ml/Chromium/ Copper/Manganese/ Seleni/Zn 0.5 ml/ Total Parenteral Nutrition/Amino Acids/Dextrose/ Fat Emulsion Intravenous 1,512 ml @ 63 mls/hr TPN CONT IV Last administered on 07/06/19at 22:06; Start 07/06/19 at 22:00; Stop 07/07/19 at 21:59; Status DC Calcium Carbonate/ Glycine (Tums) 500 mg PRN AFTMEALHC PRN PO INDIGESTION; Start 07/06/19 at 17:45; Stop 08/31/19 at 10:25; Status DC Calcium Gluconate (Calcium Gluconate) 2,000 mg 1X ONCE IVP Last administered on 07/07/19at 02:19; Start 07/07/19 at 02:15; Stop 07/07/19 at 02:16; Status DC Calcium Chloride 3000 mg/Sodium Chloride 1,030 ml @ 50 mls/hr [id number] IV Last administered on 07/09/19at 02:17; Start 07/07/19 at 08:00; Stop 07/09/19 at 15:23; Status DC Lorazepam (Ativan Inj) 1 mg PRN Q4HRS PRN IVP ANXIETY / AGITATION, 2nd choic Last administered on 08/05/19at 03:51; Start 07/07/19 at 09:00; Stop 08/05/19 at 09:19; Status DC Sodium Chloride 1,000 ml @ 1,000 mls/hr Q1H PRN IV hypotension; Start 07/07/19 at 08:56; Stop 07/07/19 at 14:55; Status DC Albumin Human 200 ml @ 200 mls/hr 1X PRN PRN IV Hypotension; Start 07/07/19 at 09:00; Stop 07/07/19 at 14:59; Status DC Diphenhydramine HCl (Benadryl) 25 mg 1X PRN PRN IV ITCHING; Start 07/07/19 at 09:00; Stop 07/08/19 at 08:59; Status DC Diphenhydramine HCl (Benadryl) 25 mg 1X PRN PRN IV ITCHING; Start 07/07/19 at 09:00; Stop 07/08/19 at 08:59; Status DC Sodium Chloride 1,000 ml @ 400 mls/hr Q2H30M PRN IV PATENCY; Start 07/07/19 at 08:56; Stop 07/07/19 at 20:55; Status DC Info (PHARMACY MONITORING -- do not chart) 1 each PRN DAILY PRN MC SEE COMMENTS; Start 07/07/19 at 09:00; Status UNV Info (PHARMACY MONITORING -- do not chart) 1 each PRN DAILY PRN MC SEE COMMENTS; Start 07/07/19 at 09:00; Stop 07/08/19 at 08:13; Status DC Digoxin (Lanoxin) 500 mcg 1X ONCE IV Last administered on 07/07/19at 10:04; Start 07/07/19 at 10:00; Stop 07/07/19 at 10:01; Status DC Digoxin (Lanoxin) 125 mcg 1X ONCE IV Last administered on 07/07/19at 17:10; Start 07/07/19 at 18:00; Stop 07/07/19 at 18:01; Status DC Magnesium Sulfate 100 ml @ 25 mls/hr 1X ONCE IV Last administered on 07/07/19at 12:48; Start 07/07/19 at 13:00; Stop 07/07/19 at 16:59; Status DC Sodium Chloride 90 meq/Magnesium Sulfate 10 meq/ Calcium Gluconate 20 meq/ Multivitamins 10 ml/Chromium/ Copper/Manganese/ Seleni/Zn 0.5 ml/ Total Parenteral Nutrition/Amino Acids/Dextrose/ Fat Emulsion Intravenous 1,512 ml @ 63 mls/hr TPN CONT IV Last administered on 07/07/19at 22:25; Start 07/07/19 at 22:00; Stop 07/08/19 at 21:59; Status DC Sodium Chloride 1,000 ml @ 1,000 mls/hr Q1H PRN IV hypotension; Start 07/08/19 at 08:05; Stop 07/08/19 at 14:04; Status DC Albumin Human 200 ml @ 200 mls/hr 1X ONCE IV Last administered on 07/08/19at 08:57; Start 07/08/19 at 08:15; Stop 07/08/19 at 09:14; Status DC Diphenhydramine HCl (Benadryl) 25 mg 1X PRN PRN IV ITCHING; Start 07/08/19 at 08:15; Stop 07/09/19 at 08:14; Status DC Diphenhydramine HCl (Benadryl) 25 mg 1X PRN PRN IV ITCHING; Start 07/08/19 at 08:15; Stop 07/09/19 at 08:14; Status DC Sodium Chloride 1,000 ml @ 400 mls/hr Q2H30M PRN IV PATENCY; Start 07/08/19 at 08:05; Stop 07/08/19 at 20:04; Status DC Info (PHARMACY MONITORING -- do not chart) 1 each PRN DAILY PRN MC SEE COMMENTS; Start 07/08/19 at 08:15; Stop 07/12/19 at 07:57; Status DC Sodium Chloride 90 meq/Potassium Chloride 15 meq/ Potassium Phosphate 10 mmol/ Magnesium Sulfate 10 meq/Calcium Gluconate 20 meq/ Multivitamins 10 ml/Chromium/ Copper/Manganese/ Seleni/Zn 0.5 ml/ Total Parenteral Nutrition/Amino Acids/Dextrose/ Fat Emulsion Intravenous 1,512 ml @ 63 mls/hr TPN CONT IV Last administered on 07/08/19at 21:01; Start 07/08/19 at 22:00; Stop 07/09/19 at 21:59; Status DC Potassium Chloride/Water 100 ml @ 100 mls/hr 1X ONCE IV Last administered on 07/08/19at 14:09; Start 07/08/19 at 14:00; Stop 07/08/19 at 14:59; Status DC Benzocaine (Hurricaine One) 1 spray 1X ONCE MM Last administered on 07/08/19at 16:38; Start 07/08/19 at 14:30; Stop 07/08/19 at 14:31; Status DC Lidocaine HCl (Glydo (Lidocaine) Jelly) 1 ramu 1X ONCE MM Last administered on 07/08/19at 16:38; Start 07/08/19 at 14:30; Stop 07/08/19 at 14:31; Status DC Linezolid/Dextrose 300 ml @ 300 mls/hr Q12HR IV Last administered on 07/14/19at 21:04; Start 07/08/19 at 20:00; Stop 07/15/19 at 07:50; Status DC Acetaminophen (Tylenol) 650 mg PRN Q6HRS PRN PO MILD PAIN / TEMP; Start 07/09/19 at 03:30; Stop 07/09/19 at 03:36; Status DC Acetaminophen (Tylenol) 650 mg PRN Q6HRS PRN PEG MILD PAIN / TEMP Last administered on 08/04/19at 19:56; Start 07/09/19 at 03:36; Stop 08/31/19 at 10:25; Status DC Sodium Chloride 1,000 ml @ 1,000 mls/hr Q1H PRN IV hypotension; Start 07/09/19 at 07:50; Stop 07/09/19 at 13:49; Status DC Albumin Human 200 ml @ 200 mls/hr 1X PRN PRN IV Hypotension; Start 07/09/19 at 08:00; Stop 07/09/19 at 13:59; Status DC Sodium Chloride (Normal Saline Flush) 10 ml 1X PRN PRN IV AP catheter pack; Start 07/09/19 at 08:00; Stop 07/10/19 at 07:59; Status DC Sodium Chloride (Normal Saline Flush) 10 ml 1X PRN PRN IV [employer] catheter pack; Start 07/09/19 at 08:00; Stop 07/10/19 at 07:59; Status DC Sodium Chloride 1,000 ml @ 400 mls/hr Q2H30M PRN IV PATENCY; Start 07/09/19 at 07:50; Stop 07/09/19 at 19:49; Status DC Info (PHARMACY MONITORING -- do not chart) 1 each PRN DAILY PRN MC SEE COMMENTS; Start 07/09/19 at 08:00; Status UNV Info (PHARMACY MONITORING -- do not chart) 1 each PRN DAILY PRN MC SEE COMMENTS; Start 07/09/19 at 08:00; Stop 07/11/19 at 08:25; Status DC Sodium Chloride 90 meq/Potassium Chloride 15 meq/ Potassium Phosphate 10 mmol/ Magnesium Sulfate 10 meq/Calcium Gluconate 20 meq/ Multivitamins 10 ml/Chromium/ Copper/Manganese/ Seleni/Zn 0.5 ml/ Total Parenteral Nutrition/Amino Acids/Dextrose/ Fat Emulsion Intravenous 1,512 ml @ 63 mls/hr TPN CONT IV Last administered on 07/09/19at 20:57; Start 07/09/19 at 22:00; Stop 07/10/19 at 21:59; Status DC Sodium Chloride 90 meq/Potassium Chloride 15 meq/ Potassium Phosphate 15 mmol/ Magnesium Sulfate 10 meq/Calcium Gluconate 20 meq/ Multivitamins 10 ml/Chromium/ Copper/Manganese/ Seleni/Zn 0.5 ml/ Total Parenteral Nutrition/Amino Acids/Dextrose/ Fat Emulsion Intravenous 1,512 ml @ 63 mls/hr TPN CONT IV ; Start 07/10/19 at 22:00; Stop 07/10/19 at 14:16; Status DC Sodium Chloride 90 meq/Potassium Chloride 15 meq/ Potassium Phosphate 15 mmol/ Magnesium Sulfate 10 meq/Calcium Gluconate 20 meq/ Multivitamins 10 ml/Chromium/ Copper/Manganese/ Seleni/Zn 0.5 ml/ Total Parenteral Nutrition/Amino Acids/Dextrose/ Fat Emulsion Intravenous 1,200 ml @ 50 mls/hr TPN CONT IV ; Start 07/10/19 at 22:00; Stop 07/10/19 at 14:17; Status DC Sodium Chloride 90 meq/Potassium Chloride 15 meq/ Potassium Phosphate 10 mmol/ Magnesium Sulfate 10 meq/Calcium Gluconate 20 meq/ Multivitamins 10 ml/Chromium/ Copper/Manganese/ Seleni/Zn 0.5 ml/ Total Parenteral Nutrition/Amino Acids/Dextrose/ Fat Emulsion Intravenous 1,200 ml @ 50 mls/hr TPN CONT IV Last administered on 07/10/19at 23:29; Start 07/10/19 at 22:00; Stop 07/11/19 at 21:59; Status DC Sodium Chloride 1,000 ml @ 1,000 mls/hr Q1H PRN IV hypotension; Start 07/11/19 at 07:28; Stop 07/11/19 at 13:27; Status DC Albumin Human 200 ml @ 200 mls/hr 1X ONCE IV Last administered on 07/11/19at 08:51; Start 07/11/19 at 07:30; Stop 07/11/19 at 08:29; Status DC Diphenhydramine HCl (Benadryl) 25 mg 1X PRN PRN IV ITCHING; Start 07/11/19 at 07:30; Stop 07/12/19 at 07:29; Status DC Diphenhydramine HCl (Benadryl) 25 mg 1X PRN PRN IV ITCHING; Start 07/11/19 at 07:30; Stop 07/12/19 at 07:29; Status DC Sodium Chloride 1,000 ml @ 400 mls/hr Q2H30M PRN IV PATENCY; Start 07/11/19 at 07:28; Stop 07/11/19 at 19:27; Status DC Info (PHARMACY MONITORING -- do not chart) 1 each PRN DAILY PRN MC SEE COMMENTS; Start 07/11/19 at 07:30; Stop 07/22/19 at 13:01; Status DC Metronidazole 100 ml @ 100 mls/hr Q6HRS IV Last administered on 07/27/19at 06:26; Start 07/11/19 at 08:30; Stop 07/27/19 at 09:58; Status DC Micafungin Sodium 100 mg/Dextrose 100 ml @ 100 mls/hr Q24H IV Last administered on 08/18/19at 08:18; Start 07/11/19 at 09:00; Stop 08/18/19 at 20:58; Status DC Propofol 0 ml @ As Directed STK-MED ONCE IV ; Start 07/11/19 at 07:53; Stop 07/11/19 at 07:53; Status DC Etomidate (Amidate) 20 mg STK-MED ONCE IV ; Start 07/11/19 at 07:53; Stop 07/11/19 at 07:54; Status DC Midazolam HCl (Versed) 5 mg STK-MED ONCE .ROUTE ; Start 07/11/19 at 07:57; Stop 07/11/19 at 07:57; Status DC Fentanyl Citrate 30 ml @ 0 mls/hr CONT PRN IV SEE PROTOCOL Last administered on 08/05/19at 06:12; Start 07/11/19 at 08:15; Stop 08/05/19 at 09:19; Status DC Artificial Tears (Artificial Tears) 1 drop PRN Q1HR PRN OU DRY EYE, 1st choice; Start 07/11/19 at 08:15; Stop 08/17/19 at 05:31; Status DC Midazolam HCl 50 mg/Sodium Chloride 50 ml @ 0 mls/hr CONT PRN IV SEE PROTOCOL Last administered on 07/14/19at 22:39; Start 07/11/19 at 08:15; Stop 07/16/19 at 15:59; Status DC Etomidate (Amidate) 8 mg 1X ONCE IV Last administered on 07/11/19at 08:33; Start 07/11/19 at 08:30; Stop 07/11/19 at 08:31; Status DC Succinylcholine Chloride (Anectine) 120 mg 1X ONCE IV Last administered on 07/11/19at 08:34; Start 07/11/19 at 08:30; Stop 07/11/19 at 08:31; Status DC Midazolam HCl (Versed) 5 mg 1X ONCE IV ; Start 07/11/19 at 08:30; Stop 07/11/19 at 08:31; Status DC Potassium Chloride 15 meq/ Bicarbonate Dialysis Soln w/ out KCl 5,007.5 ml @ 1,000 mls/ hr Q5H1M IV Last administered on 07/12/19at 11:11; Start 07/11/19 at 12:00; Stop 07/12/19 at 11:15; Status DC Potassium Chloride 15 meq/ Bicarbonate Dialysis Soln w/ out KCl 5,007.5 ml @ 1,000 mls/ hr Q5H1M IV Last administered on 07/12/19at 11:12; Start 07/11/19 at 12:00; Stop 07/12/19 at 11:17; Status DC Potassium Chloride 15 meq/ Bicarbonate Dialysis Soln w/ out KCl 5,007.5 ml @ 1,000 mls/ hr Q5H1M IV Last administered on 07/12/19at 11:11; Start 07/11/19 at 12:00; Stop 07/12/19 at 11:19; Status DC Sodium Chloride 90 meq/Potassium Chloride 15 meq/ Potassium Phosphate 10 mmol/ Magnesium Sulfate 10 meq/Calcium Gluconate 20 meq/ Multivitamins 10 ml/Chromium/ Copper/Manganese/ Seleni/Zn 0.5 ml/ Total Parenteral Nutrition/Amino Acids/Dextrose/ Fat Emulsion Intravenous 1,400 ml @ 58.333 mls/ hr TPN CONT IV Last administered on 07/11/19at 21:42; Start 07/11/19 at 22:00; Stop 07/12/19 at 21:59; Status DC Heparin Sodium (Porcine) (Heparin Sodium) 5,000 unit Q8HRS SQ Last administered on 07/16/19at 05:55; Start 07/11/19 at 15:00; Stop 07/16/19 at 13:28; Status DC Meropenem 500 mg/ Sodium Chloride 50 ml @ 100 mls/hr Q6HRS IV Last administered on 07/13/19at 06:00; Start 07/12/19 at 09:00; Stop 07/13/19 at 07:29; Status DC Potassium Phosphate 20 mmol/ Sodium Chloride 106.6667 ml @ 51.667 m... 1X ONCE IV Last administered on 07/12/19at 11:22; Start 07/12/19 at 10:15; Stop 07/12/19 at 12:18; Status DC Acetaminophen (Tylenol Supp) 650 mg PRN Q6HRS PRN [place] MILD PAIN / TEMP > 100.3'F Last administered on 10/06/19at 10:16; Start 07/12/19 at 10:30 Potassium Chloride/Water 100 ml @ 100 mls/hr Q1H IV Last administered on 07/12/19at 12:12; Start 07/12/19 at 11:00; Stop 07/12/19 at 12:59; Status DC Potassium Chloride 20 meq/ Bicarbonate Dialysis Soln w/ out KCl 5,010 ml @ 1,000 mls/hr Q5H1M IV Last administered on 07/13/19at 08:48; Start 07/12/19 at 12:00; Stop 07/13/19 at 13:03; Status DC Potassium Chloride 20 meq/ Bicarbonate Dialysis Soln w/ out KCl 5,010 ml @ 1,000 mls/hr Q5H1M IV Last administered on 07/17/19at 14:52; Start 07/12/19 at 1 1:30; Stop 07/17/19 at 19:59; Status DC Potassium Chloride 20 meq/ Bicarbonate Dialysis Soln w/ out KCl 5,010 ml @ 1,000 mls/hr Q5H1M IV Last administered on 07/17/19at 14:53; Start 07/12/19 at 11:30; Stop 07/17/19 at 19:59; Status DC Sodium Chloride 90 meq/Potassium Chloride 15 meq/ Potassium Phosphate 15 mmol/ Magnesium Sulfate 10 meq/Calcium Gluconate 15 meq/ Multivitamins 10 ml/Chromium/ Copper/Manganese/ Seleni/Zn 0.5 ml/ Total Parenteral Nutrition/Amino Acids/Dextrose/ Fat Emulsion Intravenous 1,400 ml @ 58.333 mls/ hr TPN CONT IV Last administered on 07/12/19at 22:17; Start 07/12/19 at 22:00; Stop 07/13/19 at 21:59; Status DC Cefepime HCl (Maxipime) 2 gm Q12HR IVP Last administered on 07/26/19at 20:56; Start 07/13/19 at 09:00; Stop 07/27/19 at 09:58; Status DC Daptomycin 500 mg/ Sodium Chloride 50 ml @ 100 mls/hr Q48H IV Last administered on 07/29/19at 09:57; Start 07/13/19 at 08:30; Stop 07/29/19 at 10:07; Status DC Lidocaine HCl (Buffered Lidocaine 1%) 3 ml 1X ONCE INJ Last administered on at 10:27; Start 07/13/19 at 10:30; Stop 07/13/19 at 10:31; Status DC Potassium Phosphate 20 mmol/ Sodium Chloride 106.6667 ml @ 51.667 m... 1X ONCE IV Last administered on 07/13/19at 12:51; Start 07/13/19 at 13:00; Stop 07/13/19 at 15:03; Status DC Sodium Chloride 90 meq/Potassium Chloride 15 meq/ Potassium Phosphate 18 mmol/ Magnesium Sulfate 8 meq/Calcium Gluconate 15 meq/ Multivitamins 10 ml/Chromium/ Copper/Manganese/ Seleni/Zn 0.5 ml/ Total Parenteral Nutrition/Amino Acids/Dextrose/ Fat Emulsion Intravenous 1,400 ml @ 58.333 mls/ hr TPN CONT IV Last administered on 07/13/19at 22:16; Start 07/13/19 at 22:00; Stop 07/14/19 at 21:59; Status DC Potassium Chloride 20 meq/ Bicarbonate Dialysis Soln w/ out KCl 5,010 ml @ 1,000 mls/hr Q5H1M IV Last administered on 07/17/19at 14:54; Start 07/13/19 at 16:00; Stop 07/17/19 at 19:59; Status DC Multi-Ingred Cream/Lotion/Oil/ Oint (Artificial Tears Eye Ointment) 1 ramu PRN Q1HR PRN OU DRY EYE, 2nd choice Last administered on 08/01/19at 08:19; Start 07/13/19 at 17:30; Stop 09/21/19 at 14:39; Status DC Sodium Chloride 90 meq/Potassium Chloride 15 meq/ Potassium Phosphate 18 mmol/ M agnesium Sulfate 8 meq/Calcium Gluconate 15 meq/ Multivitamins 10 ml/Chromium/ Copper/Manganese/ Seleni/Zn 0.5 ml/ Total Parenteral Nutrition/Amino Acids/Dextrose/ Fat Emulsion Intravenous 1,400 ml @ 58.333 mls/ hr TPN CONT IV Last administered on 07/14/19at 22:00; Start 07/14/19 at 22:00; Stop 07/15/19 at 21:59; Status DC Albumin Human 500 ml @ 125 mls/hr 1X ONCE IV ; Start 07/14/19 at 14:15; Stop 07/14/19 at 18:14; Status DC Sodium Chloride 90 meq/Potassium Chloride 15 meq/ Potassium Phosphate 18 mmol/ Magnesium Sulfate 8 meq/Calcium Gluconate 15 meq/ Multivitamins 10 ml/Chromium/ Copper/Manganese/ Seleni/Zn 0.5 ml/ Insulin Human Regular 10 unit/ Total Parenteral Nutrition/Amino Acids/Dextrose/ Fat Emulsion Intravenous 1,400 ml @ 58.333 mls/ hr TPN CONT IV Last administered on 07/15/19at 21:43; Start 07/15/19 at 22:00; Stop 07/16/19 at 21:59; Status DC Lidocaine HCl (Buffered Lidocaine 1%) 3 ml STK-MED ONCE .ROUTE ; Start 07/13/19 at 10:00; Stop 07/15/19 at 13:57; Status DC Midazolam HCl 100 mg/Sodium Chloride 100 ml @ 7 mls/hr CONT PRN IV SEE PROTOCOL Last administered on 07/27/19at 15:35; Start 07/16/19 at 16:00; Stop 09/21/19 at 14:38; Status DC Sodium Chloride 90 meq/Potassium Chloride 15 meq/ Potassium Phosphate 18 mmol/ Magnesium Sulfate 8 meq/Calcium Gluconate 15 meq/ Multivitamins 10 ml/Chromium/ Copper/Manganese/ Seleni/Zn 0.5 ml/ Insulin Human Regular 15 unit/ Total Parenteral Nutrition/Amino Acids/Dextrose/ Fat Emulsion Intravenous 1,400 ml @ 58.333 mls/ hr TPN CONT IV Last administered on 07/16/19at 20:34; Start 07/16/19 at 22:00; Stop 07/17/19 at 21:59; Status DC Info (Icu Electrolyte Protocol) 1 ea CONT PRN PRN MC PER PROTOCOL; Start 07/17/19 at 13:15 Sodium Chloride 90 meq/Potassium Chloride 15 meq/ Potassium Phosphate 18 mmol/ Magnesium Sulfate 8 meq/Calcium Gluconate 15 meq/ Multivitamins 10 ml/Chromium/ Copper/Manganese/ Seleni/Zn 0.5 ml/ Insulin Human Regular 15 unit/ Total Parenteral Nutrition/Amino Acids/Dextrose/ Fat Emulsion Intravenous 1,400 ml @ 58.333 mls/ hr TPN CONT IV Last administered on 07/17/19at 22:05; Start 07/17/19 at 22:00; Stop 07/18/19 at 21:59; Status DC Potassium Chloride 15 meq/ Bicarbonate Dialysis Soln w/ out KCl 5,007.5 ml @ 1,000 mls/ hr Q5H1M IV Last administered on 07/20/19at 18:14; Start 07/17/19 at 20:00; Stop 07/21/19 at 13:08; Status DC Potassium Chloride 15 meq/ Bicarbonate Dialysis Soln w/ out KCl 5,007.5 ml @ 1,000 mls/ hr Q5H1M IV Last administered on 07/20/19at 18:14; Start 07/17/19 at 20:00; Stop 07/21/19 at 13:08; Status DC Potassium Chloride 15 meq/ Bicarbonate Dialysis Soln w/ out KCl 5,007.5 ml @ 1,000 mls/ hr Q5H1M IV Last administered on 07/20/19at 18:14; Start 07/17/19 at 20:00; Stop 07/21/19 at 13:08; Status DC Iohexol (Omnipaque 240 Mg/ml) 30 ml 1X ONCE PO Last administered on 07/18/19at 11:30; Start 07/18/19 at 11:30; Stop 07/18/19 at 11:33; Status DC Info (CONTRAST GIVEN -- Rx MONITORING) 1 each PRN DAILY PRN MC SEE COMMENTS; Start 07/18/19 at 11:45; Stop 07/20/19 at 11:44; Status DC Sodium Chloride 90 meq/Potassium Chloride 15 meq/ Potassium Phosphate 18 mmol/ Magnesium Sulfate 8 meq/Calcium Gluconate 15 meq/ Multivitamins 10 ml/Chromium/ Copper/Manganese/ Seleni/Zn 0.5 ml/ Insulin Human Regular 15 unit/ Total Parenteral Nutrition/Amino Acids/Dextrose/ Fat Emulsion Intravenous 1,400 ml @ 58.333 mls/ hr TPN CONT IV Last administered on 07/18/19at 21:47; Start 07/18/19 at 22:00; Stop 07/19/19 at 21:59; Status DC Sodium Chloride 90 meq/Potassium Chloride 15 meq/ Potassium Phosphate 18 mmol/ Magnesium Sulfate 8 meq/Calcium Gluconate 15 meq/ Multivitamins 10 ml/Chromium/ Copper/Manganese/ Seleni/Zn 0.5 ml/ Insulin Human Regular 20 unit/ Total Parenteral Nutrition/Amino Acids/Dextrose/ Fat Emulsion Intravenous 1,400 ml @ 58.333 mls/ hr TPN CONT IV Last administered on 07/19/19at 21:36; Start 07/19/19 at 22:00; Stop 07/20/19 at 21:59; Status DC Alteplase, Recombinant (Cathflo For Central Catheter Clearance) 1 mg 1X ONCE INT CAT Last administered on 07/19/19at 20:03; Start 07/19/19 at 19:30; Stop 07/19/19 at 19:46; Status DC Alteplase, Recombinant (Cathflo For Central Catheter Clearance) 1 mg 1X ONCE INT CAT Last administered on 07/19/19at 22:05; Start 07/19/19 at 22:00; Stop 07/19/19 at 22:01; Status DC Sodium Chloride 90 meq/Potassium Chloride 15 meq/ Potassium Phosphate 18 mmol/ Magnesium Sulfate 8 meq/Calcium Gluconate 15 meq/ Multivitamins 10 ml/Chromium/ Copper/Manganese/ Seleni/Zn 0.5 ml/ Insulin Human Regular 20 unit/ Total Parenteral Nutrition/Amino Acids/Dextrose/ Fat Emulsion Intravenous 1,400 ml @ 58.333 mls/ hr TPN CONT IV Last administered on 07/20/19at 21:30; Start 07/20/19 at 22:00; Stop 07/21/19 at 21:59; Status DC Dexmedetomidine HCl 400 mcg/ Sodium Chloride 100 ml @ 0 mls/hr CONT PRN IV ANXIETY / AGITATION Last administered on 09/17/19at 12:57; Start 07/21/19 at 08:1 5; Stop 09/17/19 at 18:31; Status DC Sodium Chloride 500 ml @ 500 mls/hr 1X PRN PRN IV ELEVATED BP, SEE COMMENTS; Start 07/21/19 at 08:15 Atropine Sulfate (ATROPINE 0.5mg SYRINGE) 0.5 mg PRN Q5MIN PRN IV SEE COMMENTS; Start 07/21/19 at 08:15 Furosemide (Lasix) 20 mg 1X ONCE IVP Last administered on 07/21/19at 08:19; Start 07/21/19 at 08:15; Stop 07/21/19 at 08:16; Status DC Lidocaine HCl (Buffered Lidocaine 1%) 3 ml STK-MED ONCE .ROUTE ; Start 07/21/19 at 08:39; Stop 07/21/19 at 08:39; Status DC Lidocaine HCl (Buffered Lidocaine 1%) 6 ml 1X ONCE INJ Last administered on 07/21/19at 09:05; Start 07/21/19 at 09:00; Stop 07/21/19 at 09:06; Status DC Sodium Chloride 90 meq/Potassium Chloride 15 meq/ Potassium Phosphate 18 mmol/ Magnesium Sulfate 8 meq/Calcium Gluconate 15 meq/ Multivitamins 10 ml/Chromium/ Copper/Manganese/ Seleni/Zn 0.5 ml/ Insulin Human Regular 20 unit/ Total Parenteral Nutrition/Amino Acids/Dextrose/ Fat Emulsion Intravenous 1,400 ml @ 58.333 mls/ hr TPN CONT IV Last administered on 07/21/19at 22:45; Start 07/21/19 at 22:00; Stop 07/22/19 at 21:59; Status DC Sodium Chloride 1,000 ml @ 1,000 mls/hr Q1H PRN IV hypotension; Start 07/22/19 at 07:30; Stop 07/22/19 at 13:29; Status DC Albumin Human 200 ml @ 200 mls/hr 1X PRN PRN IV Hypotension Last administered on 07/22/19at 09:36; Start 07/22/19 at 07:30; Stop 07/22/19 at 13:29; Status DC Sodium Chloride (Normal Saline Flush) 10 ml 1X PRN PRN IV AP catheter pack; Start 07/22/19 at 07:30; Stop 07/22/19 at 21:29; Status DC Sodium Chloride (Normal Saline Flush) 10 ml 1X PRN PRN IV [employer] catheter pack; Start 07/22/19 at 07:30; Stop 07/23/19 at 07:29; Status DC Sodium Chloride 1,000 ml @ 400 mls/hr Q2H30M PRN IV PATENCY; Start 07/22/19 at 07:30; Stop 07/22/19 at 19:29; Status DC Info (PHARMACY MONITORING -- do not chart) 1 each PRN DAILY PRN MC SEE COMMENTS; Start 07/22/19 at 07:30; Stop 07/22/19 at 13:02; Status DC Info (PHARMACY MONITORING -- do not chart) 1 each PRN DAILY PRN MC SEE COMMENTS; Start 07/22/19 at 07:30; Stop 07/24/19 at 12:45; Status DC Sodium Chloride 90 meq/Potassium Chloride 15 meq/ Potassium Phosphate 10 mmol/ Magnesium Sulfate 8 meq/Calcium Gluconate 15 meq/ Multivitamins 10 ml/Chromium/ Copper/Manganese/ Seleni/Zn 0.5 ml/ Insulin Human Regular 25 unit/ Total Parenteral Nutrition/Amino Acids/Dextrose/ Fat Emulsion Intravenous 1,400 ml @ 58.333 mls/ hr TPN CONT IV Last administered on 07/22/19at 22:19; Start 07/22/19 at 22:00; Stop 07/23/19 at 21:59; Status DC Heparin Sodium (Porcine) (Heparin Sodium) 5,000 unit Q12HR SQ Last administered on 08/14/19at 08:59; Start 07/22/19 at 21:00; Stop 08/14/19 at 10:05; Status DC Ondansetron HCl (Zofran) 4 mg PRN Q6HRS PRN IV NAUSEA/VOMITING; Start 07/25/19 at 07:00; Stop 07/26/19 at 06:59; Status DC Fentanyl Citrate (Fentanyl 2ml Vial) 25 mcg PRN Q5MIN PRN IV MILD PAIN 1-3; Start 07/25/19 at 07:00; Stop 07/26/19 at 06:59; Status DC Fentanyl Citrate (Fentanyl 2ml Vial) 50 mcg PRN Q5MIN PRN IV MODERATE TO SEVERE PAIN; Start 07/25/19 at 07:00; Stop 07/26/19 at 06:59; Status DC Ringer's Solution 1,000 ml @ 30 mls/hr Q24H IV ; Start 07/25/19 at 07:00; Stop 07/25/19 at 18:59; Status DC Lidocaine HCl (Xylocaine-Mpf 1% 2ml Vial) 2 ml PRN 1X PRN ID PRIOR TO IV START; Start 07/25/19 at 07:00; Stop 07/26/19 at 06:59; Status DC Prochlorperazine Edisylate (Compazine) 5 mg PACU PRN PRN IV NAUSEA, MRX1; Start 07/25/19 at 07:00; Stop 07/26/19 at 06:59; Status DC Sodium Chloride 1,000 ml @ 1,000 mls/hr Q1H PRN IV hypotension; Start 07/23/19 at 09:10; Stop 07/23/19 at 15:09; Status DC Albumin Human 200 ml @ 200 mls/hr 1X PRN PRN IV Hypotension Last administered on 07/23/19at 10:10; Start 07/23/19 at 09:15; Stop 07/23/19 at 15:14; Status DC Sodium Chloride 1,000 ml @ 400 mls/hr Q2H30M PRN IV PATENCY; Start 07/23/19 at 09:10; Stop 07/23/19 at 21:09; Status DC Info (PHARMACY MONITORING -- do not chart) 1 each PRN DAILY PRN MC SEE COMMENTS; Start 07/23/19 at 09:15; Stop 07/24/19 at 12:45; Status DC Info (PHARMACY MONITORING -- do not chart) 1 each PRN DAILY PRN MC SEE COMMENTS; Start 07/23/19 at 09:15; Stop 07/24/19 at 12:45; Status DC Sodium Chloride 90 meq/Potassium Chloride 15 meq/ Potassium Phosphate 10 mmol/ Magnesium Sulfate 8 meq/Calcium Gluconate 15 meq/ Multivitamins 10 ml/Chromium/ Copper/Manganese/ Seleni/Zn 0.5 ml/ Insulin Human Regular 25 unit/ Total Parenteral Nutrition/Amino Acids/Dextrose/ Fat Emulsion Intravenous 1,400 ml @ 58.333 mls/ hr TPN CONT IV Last administered on 07/23/19at 22:10; Start 07/23/19 at 22:00; Stop 07/24/19 at 21:59; Status DC Magnesium Sulfate 50 ml @ 25 mls/hr PRN DAILY PRN IV for Mag < 1.7 on am labs Last administered on 10/06/19at 10:57; Start 07/24/19 at 09:15 Sodium Chloride 90 meq/Potassium Chloride 15 meq/ Potassium Phosphate 10 mmol/ Magnesium Sulfate 8 meq/Calcium Gluconate 15 meq/ Multivitamins 10 ml/Chromium/ Copper/Manganese/ Seleni/Zn 0.5 ml/ Insulin Human Regular 25 unit/ Total Parenteral Nutrition/Amino Acids/Dextrose/ Fat Emulsion Intravenous 1,400 ml @ 58.333 mls/ hr TPN CONT IV Last administered on 07/24/19at 21:20; Start 07/24/19 at 22:00; Stop 07/25/19 at 21:59; Status DC Sodium Chloride 1,000 ml @ 1,000 mls/hr Q1H PRN IV hypotension; Start 07/24/19 at 12:23; Stop 07/24/19 at 18:22; Status DC Albumin Human 200 ml @ 200 mls/hr 1X ONCE IV Last administered on 07/24/19at 13:34; Start 07/24/19 at 12:30; Stop 07/24/19 at 13:29; Status DC Diphenhydramine HCl (Benadryl) 25 mg 1X PRN PRN IV ITCHING; Start 07/24/19 at 12:30; Stop 07/25/19 at 12:29; Status DC Diphenhydramine HCl (Benadryl) 25 mg 1X PRN PRN IV ITCHING; Start 07/24/19 at 12:30; Stop 07/25/19 at 12:29; Status DC Info (PHARMACY MONITORING -- do not chart) 1 each PRN DAILY PRN MC SEE COMMENTS; Start 07/24/19 at 12:30; Status Cancel Bupivacaine HCl/ Epinephrine Bitart (Sensorcain-Epi 0.5%-1:[id number] Mpf) 30 ml STK-MED ONCE .ROUTE Last administered on 07/25/19at 11:44; Start 07/25/19 at 1 1:00; Stop 07/25/19 at 11:01; Status DC Cellulose (Surgicel Fibrillar 1x2) 1 each STK-MED ONCE .ROUTE ; Start 07/25/19 at 11:00; Stop 07/25/19 at 11:01; Status DC Sodium Chloride 90 meq/Potassium Chloride 15 meq/ Potassium Phosphate 10 mmol/ Magnesium Sulfate 12 meq/Calcium Gluconate 15 meq/ Multivitamins 10 ml/Chromium/ Copper/Manganese/ Seleni/Zn 0.5 ml/ Insulin Human Regular 25 unit/ Total Parenteral Nutrition/Amino Acids/Dextrose/ Fat Emulsion Intravenous 1,400 ml @ 58.333 mls/ hr TPN CONT IV Last administered on 07/25/19at 22:24; Start 07/25/19 at 22:00; Stop 07/26/19 at 21:59; Status DC Propofol 20 ml @ As Directed STK-MED ONCE IV ; Start 07/25/19 at 11:07; Stop 07/25/19 at 11:07; Status DC Cellulose (Surgicel Hemostat 4x8) 1 each STK-MED ONCE .ROUTE Last administered on 07/25/19at 11:44; Start 07/25/19 at 11:55; Stop 07/25/19 at 11:56; Status DC Sevoflurane (Ultane) 60 ml STK-MED ONCE IH ; Start 07/25/19 at 12:46; Stop 07/25/19 at 12:46; Status DC Sodium Chloride 1,000 ml @ 1,000 mls/hr Q1H PRN IV hypotension; Start 07/25/19 at 13:51; Stop 07/25/19 at 19:50; Status DC Albumin Human 200 ml @ 200 mls/hr 1X PRN PRN IV Hypotension Last administered on 07/25/19at 14:51; Start 07/25/19 at 14:00; Stop 07/25/19 at 19:59; Status DC Diphenhydramine HCl (Benadryl) 25 mg 1X PRN PRN IV ITCHING; Start 07/25/19 at 14:00; Stop 07/26/19 at 13:59; Status DC Diphenhydramine HCl (Benadryl) 25 mg 1X PRN PRN IV ITCHING; Start 07/25/19 at 14:00; Stop 07/26/19 at 13:59; Status DC Sodium Chloride 1,000 ml @ 400 mls/hr Q2H30M PRN IV PATENCY; Start 07/25/19 at 13:51; Stop 07/26/19 at 01:50; Status DC Info (PHARMACY MONITORING -- do not chart) 1 each PRN DAILY PRN MC SEE COMMENTS; Start 07/25/19 at 14:00; Stop 07/28/19 at 08:16; Status DC Heparin Sodium (Porcine) (Hep Lock Adult) 500 unit STK-MED ONCE IVP ; Start 07/26/19 at 09:29; Stop 07/26/19 at 09:30; Status DC Sodium Chloride 1,000 ml @ 1,000 mls/hr Q1H PRN IV hypotension; Start 07/26/19 at 10:43; Stop 07/26/19 at 16:42; Status DC Sodium Chloride 1,000 ml @ 400 mls/hr Q2H30M PRN IV PATENCY; Start 07/26/19 at 10:43; Stop 07/26/19 at 22:42; Status DC Info (PHARMACY MONITORING -- do not chart) 1 each PRN DAILY PRN MC SEE COMMENTS; Start 07/26/19 at 10:45; Status UNV Info (PHARMACY MONITORING -- do not chart) 1 each PRN DAILY PRN MC SEE C OMMENTS; Start 07/26/19 at 10:45; Status UNV Sodium Chloride 90 meq/Potassium Chloride 15 meq/ Magnesium Sulfate 12 meq/Calcium Gluconate 15 meq/ Multivitamins 10 ml/Chromium/ Copper/Manganese/ Seleni/Zn 0.5 ml/ Insulin Human Regular 25 unit/ Total Parenteral Nutrition/Amino Acids/Dextrose/ Fat Emulsion Intravenous 1,400 ml @ 58.333 mls/ hr TPN CONT IV Last administered on 07/26/19at 22:13; Start 07/26/19 at 22:00; Stop 07/27/19 at 21:59; Status DC Sodium Chloride 1,000 ml @ 1,000 mls/hr Q1H PRN IV hypotension; Start 07/27/19 at 07:50; Stop 07/27/19 at 13:49; Status DC Albumin Human 200 ml @ 200 mls/hr 1X ONCE IV ; Start 07/27/19 at 08:00; Stop 07/27/19 at 08:53; Status DC Diphenhydramine HCl (Benadryl) 25 mg 1X PRN PRN IV ITCHING; Start 07/27/19 at 08:00; Stop 07/28/19 at 07:59; Status DC Diphenhydramine HCl (Benadryl) 25 mg 1X PRN PRN IV ITCHING; Start 07/27/19 at 08:00; Stop 07/28/19 at 07:59; Status DC Info (PHARMACY MONITORING -- do not chart) 1 each PRN DAILY PRN MC SEE COMMENTS; Start 07/27/19 at 08:00; Stop 07/28/19 at 08:16; Status DC Albumin Human 50 ml @ 50 mls/hr 1X ONCE IV ; Start 07/27/19 at 08:53; Stop 07/27/19 at 08:56; Status DC Albumin Human 200 ml @ 50 mls/hr PRN 1X PRN IV HYPOTENSION Last administered on 08/02/19at 11:54; Start 07/27/19 at 09:00; Stop 09/08/19 at 11:14; Status DC Meropenem 500 mg/ Sodium Chloride 50 ml @ 100 mls/hr Q12H IV Last administered on 08/16/19at 10:45; Start 07/27/19 at 10:00; Stop 08/16/19 at 12:37; Status DC Sodium Chloride 90 meq/Magnesium Sulfate 12 meq/ Calcium Gluconate 15 meq/ Multivitamins 10 ml/Chromium/ Copper/Manganese/ Seleni/Zn 0.5 ml/ Insulin Human Regular 25 unit/ Total Parenteral Nutrition/Amino Acids/Dextrose/ Fat Emulsion Intravenous 1,400 ml @ 58.333 mls/ hr TPN CONT IV Last administered on at 21:41; Start 07/27/19 at 22:00; Stop 07/28/19 at 21:59; Status DC Sodium Chloride 1,000 ml @ 1,000 mls/hr Q1H PRN IV hypotension; Start 07/28/19 at 07:58; Stop 07/28/19 at 13:57; Status DC Albumin Human 200 ml @ 200 mls/hr 1X PRN PRN IV Hypotension Last administered on 07/28/19at 09:30; Start 07/28/19 at 08:00; Stop 07/28/19 at 13:59; Status DC Sodium Chloride 1,000 ml @ 400 mls/hr Q2H30M PRN IV PATENCY; Start 07/28/19 at 07:58; Stop 07/28/19 at 19:57; Status DC Info (PHARMACY MONITORING -- do not chart) 1 each PRN DAILY PRN MC SEE COMMENTS; Start 07/28/19 at 08:00; Status Cancel Info (PHARMACY MONITORING -- do not chart) 1 each PRN DAILY PRN MC SEE COMMENTS; Start 07/28/19 at 08:15; Status UNV Sodium Chloride 90 meq/Potassium Phosphate 5 mmol/ Magnesium Sulfate 12 meq/Calcium Gluconate 15 meq/ Multivitamins 10 ml/Chromium/ Copper/Manganese/ Seleni/Zn 0.5 ml/ Insulin Human Regular 30 unit/ Total Parenteral Nutrition/Amino Acids/Dextrose/ Fat Emulsion Intravenous 1,400 ml @ 58.333 mls/ hr TPN CONT IV Last administered on 07/28/19at 22:08; Start 07/28/19 at 22:00; Stop 07/29/19 at 21:59; Status DC Linezolid/Dextrose 300 ml @ 300 mls/hr Q12HR IV Last administered on 08/08/19at 20:40; Start 07/29/19 at 11:00; Stop 08/09/19 at 08:10; Status DC Sodium Chloride 90 meq/Potassium Phosphate 15 mmol/ Magnesium Sulfate 12 meq/Calcium Gluconate 15 meq/ Multivitamins 10 ml/Chromium/ Copper/Manganese/ Seleni/Zn 0.5 ml/ Insulin Human Regular 30 unit/ Total Parenteral Nutrition/Amino Acids/Dextrose/ Fat Emulsion Intravenous 1,400 ml @ 58.333 mls/ hr TPN CONT IV Last administered on 07/29/19at 21:49; Start 07/29/19 at 22:00; Stop 07/30/19 at 21:59; Status DC Sodium Chloride 90 meq/Potassium Phosphate 15 mmol/ Magnesium Sulfate 12 meq/Calcium Gluconate 15 meq/ Multivitamins 10 ml/Chromium/ Copper/Manganese/ Seleni/Zn 0.5 ml/ Insulin Human Regular 40 unit/ Total Parenteral Nutrition/Amino Acids/Dextrose/ Fat Emulsion Intravenous 1,400 ml @ 58.333 mls/ hr TPN CONT IV Last administered on 07/30/19at 21:21; Start 07/30/19 at 22:00; Stop 07/31/19 at 21:59; Status DC Sodium Chloride 1,000 ml @ 1,000 mls/hr Q1H PRN IV hypotension; Start 07/30/19 at 13:26; Stop 07/30/19 at 19:25; Status DC Albumin Human 200 ml @ 200 mls/hr 1X PRN PRN IV Hypotension Last administered on 07/30/19at 15:00; Start 07/30/19 at 13:30; Stop 07/30/19 at 19:29; Status DC Sodium Chloride (Normal Saline Flush) 10 ml 1X PRN PRN IV AP catheter pack; Start 07/30/19 at 13:30; Stop 07/31/19 at 13:29; Status DC Sodium Chloride (Normal Saline Flush) 10 ml 1X PRN PRN IV [employer] catheter pack; Start 07/30/19 at 13:30; Stop 07/31/19 at 13:29; Status DC Sodium Chloride 1,000 ml @ 400 mls/hr Q2H30M PRN IV PATENCY; Start 07/30/19 at 13:26; Stop 07/31/19 at 01:25; Status DC Info (PHARMACY MONITORING -- do not chart) 1 each PRN DAILY PRN MC SEE COMMENTS; Start 07/30/19 at 13:30; Stop 07/30/19 at 13:33; Status DC Info (PHARMACY MONITORING -- do not chart) 1 each PRN DAILY PRN MC SEE COMMENTS; Start 07/30/19 at 13:30; Stop 07/30/19 at 13:34; Status DC Sodium Chloride 90 meq/Potassium Phosphate 19 mmol/ Magnesium Sulfate 12 meq/Calcium Gluconate 15 meq/ Multivitamins 10 ml/Chromium/ Copper/Manganese/ Seleni/Zn 0.5 ml/ Insulin Human Regular 40 unit/ Total Parenteral Nutrition/Amino Acids/Dextrose/ Fat Emulsion Intravenous 1,400 ml @ 58.333 mls/ hr TPN CONT IV Last administered on 07/31/19at 21:54; Start 07/31/19 at 22:00; Stop 08/01/19 at 21:59; Status DC Sodium Chloride 1,000 ml @ 1,000 mls/hr Q1H PRN IV hypotension; Start 08/01/19 at 09:35; Stop 08/01/19 at 15:34; Status DC Albumin Human 200 ml @ 200 mls/hr 1X PRN PRN IV Hypotension; Start 08/01/19 at 09:45; Stop 08/01/19 at 15:44; Status DC Diphenhydramine HCl (Benadryl) 25 mg 1X PRN PRN IV ITCHING; Start 08/01/19 at 09:45; Stop 08/02/19 at 09:44; Status DC Diphenhydramine HCl (Benadryl) 25 mg 1X PRN PRN IV ITCHING; Start 08/01/19 at 09:45; Stop 08/02/19 at 09:44; Status DC Sodium Chloride 1,000 ml @ 400 mls/hr Q2H30M PRN IV PATENCY; Start 08/01/19 at 09:35; Stop 08/01/19 at 21:34; Status DC Info (PHARMACY MONITORING -- do not chart) 1 each PRN DAILY PRN MC SEE COMMENTS; Start 08/01/19 at 09:45; Status Cancel Sodium Chloride 100 meq/Potassium Phosphate 19 mmol/ Magnesium Sulfate 12 meq/Calcium Gluconate 15 meq/ Multivitamins 10 ml/Chromium/ Copper/Manganese/ Seleni/Zn 0.5 ml/ Insulin Human Regular 40 unit/ Potassium Chloride 20 meq/ Total Parenteral Nutrition/Amino Acids/Dextrose/ Fat Emulsion Intravenous 1,400 ml @ 58.333 mls/ hr TPN CONT IV Last administered on 08/01/19at 22:02; Start 08/01/19 at 22:00; Stop 08/02/19 at 21:59; Status DC Furosemide (Lasix) 40 mg 1X ONCE IVP Last administered on 08/01/19at 14:39; Start 08/01/19 at 14:30; Stop 08/01/19 at 14:31; Status DC Metronidazole 100 ml @ 100 mls/hr Q8HRS IV Last administered on 08/09/19at 06 :04; Start 08/02/19 at 10:00; Stop 08/09/19 at 08:10; Status DC Sodium Chloride 1,000 ml @ 1,000 mls/hr Q1H PRN IV hypotension; Start 08/02/19 at 08:00; Stop 08/02/19 at 13:59; Status DC Albumin Human 200 ml @ 200 mls/hr 1X PRN PRN IV Hypotension; Start 08/02/19 at 08:00; Stop 08/02/19 at 13:59; Status DC Sodium Chloride 1,000 ml @ 400 mls/hr Q2H30M PRN IV PATENCY; Start 08/02/19 at 08:00; Stop 08/02/19 at 19:59; Status DC Info (PHARMACY MONITORING -- do not chart) 1 each PRN DAILY PRN MC SEE COMME NTS; Start 08/02/19 at 11:30; Status UNV Info (PHARMACY MONITORING -- do not chart) 1 each PRN DAILY PRN MC SEE COMMENTS; Start 08/02/19 at 11:30; Stop 08/04/19 at 12:13; Status DC Sodium Chloride 100 meq/Potassium Phosphate 19 mmol/ Magnesium Sulfate 12 meq/Calcium Gluconate 15 meq/ Multivitamins 10 ml/Chromium/ Copper/Manganese/ Seleni/Zn 0.5 ml/ Insulin Human Regular 40 unit/ Potassium Chloride 20 meq/ Total Parenteral Nutrition/Amino Acids/Dextrose/ Fat Emulsion Intravenous 1,400 ml @ 58.333 mls/ hr TPN CONT IV Last administered on 08/02/19at 21:52; Start 08/02/19 at 22:00; Stop 08/03/19 at 21:59; Status DC Sodium Chloride (Normal Saline Flush) 10 ml QSHIFT PRN IV AFTER MEDS AND BLOOD DRAWS; Start 08/02/19 at 15:00; Stop 08/30/19 at 11:27; Status DC Sodium Chloride (Normal Saline Flush) 10 ml PRN Q5MIN PRN IV AFTER MEDS AND BLOOD DRAWS; Start 08/02/19 at 15:00 Sodium Chloride (Normal Saline Flush) 20 ml PRN Q5MIN PRN IV AFTER MEDS AND BLOOD DRAWS; Start 08/02/19 at 15:00 Sodium Chloride 100 meq/Potassium Phosphate 19 mmol/ Magnesium Sulfate 12 meq/Calcium Gluconate 15 meq/ Multivitamins 10 ml/Chromium/ Copper/Manganese/ Seleni/Zn 0.5 ml/ Insulin Human Regular 40 unit/ Potassium Chloride 20 meq/ Total Parenteral Nutrition/Amino Acids/Dextrose/ Fat Emulsion Intravenous 1,400 ml @ 58.333 mls/ hr TPN CONT IV Last administered on 08/03/19at 21:20; Start 08/03/19 at 22:00; Stop 08/04/19 at 21:59; Status DC Lidocaine HCl (Buffered Lidocaine 1%) 3 ml STK-MED ONCE .ROUTE ; Start 08/03/19 at 13:16; Stop 08/03/19 at 13:16; Status DC Lidocaine HCl (Buffered Lidocaine 1%) 6 ml 1X ONCE INJ Last administered on 08/03/19at 13:45; Start 08/03/19 at 13:30; Stop 08/03/19 at 13:31; Status DC Albumin Human 100 ml @ 100 mls/hr 1X ONCE IV Last administered on 08/03/19at 15:41; Start 08/03/19 at 15:00; Stop 08/03/19 at 15:59; Status DC Albumin Human 50 ml @ 50 mls/hr 1X ONCE IV Last administered on 08/03/19at 15:00; Start 08/03/19 at 15:00; Stop 08/03/19 at 15:59; Status DC Info (PHARMACY MONITORING -- do not chart) 1 each PRN DAILY PRN MC SEE COMMENTS; Start 08/04/19 at 11:30; Status Cancel Info (PHARMACY MONITORING -- do not chart) 1 each PRN DAILY PRN MC SEE COMMENTS; Start 08/04/19 at 11:30; Status UNV Sodium Chloride 100 meq/Potassium Phosphate 10 mmol/ Magnesium Sulfate 12 meq/Calcium Gluconate 15 meq/ Multivitamins 10 ml/Chromium/ Copper/Manganese/ Seleni/Zn 0.5 ml/ Insulin Human Regular 35 unit/ Potassium Chloride 20 meq/ Total Parenteral Nutrition/Amino Acids/Dextrose/ Fat Emulsion Intravenous 1,400 ml @ 58.333 mls/ hr TPN CONT IV Last administered on 08/04/19at 22:10; Start 08/04/19 at 22:00; Stop 08/05/19 at 21:59; Status DC Sodium Chloride 100 meq/Potassium Phosphate 5 mmol/ Magnesium Sulfate 12 meq/Calcium Gluconate 15 meq/ Multivitamins 10 ml/Chromium/ Copper/Manganese/ Seleni/Zn 0.5 ml/ Insulin Human Regular 35 unit/ Potassium Chloride 20 meq/ Total Parenteral Nutrition/Amino Acids/Dextrose/ Fat Emulsion Intravenous 1,400 ml @ 58.333 mls/ hr TPN CONT IV Last administered on 08/05/19at 22:59; Start 08/05/19 at 22:00; Stop 08/06/19 at 21:59; Status DC Sodium Chloride 1,000 ml @ 1,000 mls/hr Q1H PRN IV hypotension; Start 08/06/19 at 08:27; Stop 08/06/19 at 14:26; Status DC Albumin Human 200 ml @ 200 mls/hr 1X PRN PRN IV Hypotension Last administered on 08/06/19at 09:18; Start 08/06/19 at 08:30; Stop 08/06/19 at 14:29; Status DC Sodium Chloride 1,000 ml @ 400 mls/hr Q2H30M PRN IV PATENCY; Start 08/06/19 at 08:27; Stop 08/06/19 at 20:26; Status DC Info (PHARMACY MONITORING -- do not chart) 1 each PRN DAILY PRN MC SEE COMMENTS; Start 08/06/19 at 08:30; Status Cancel Info (PHARMACY MONITORING -- do not chart) 1 each PRN DAILY PRN MC SEE COMMENTS; Start 08/06/19 at 08:30; Stop 08/14/19 at 13:10; Status DC Sodium Chloride 100 meq/Potassium Chloride 40 meq/ Magnesium Sulfate 15 meq/Calcium Gluconate 15 meq/ Multivitamins 10 ml/Chromium/ Copper/Manganese/ Seleni/Zn 0.5 ml/ Insulin Human Regular 35 unit/ Total Parenteral Nutrition/Amino Acids/Dextrose/ Fat Emulsion Intravenous 1,400 ml @ 58.333 mls/ hr TPN CONT IV Last administered on 08/06/19at 22:00; Start 08/06/19 at 22:00; Stop 08/07/19 at 21:59; Status DC Potassium Chloride/Water 100 ml @ 100 mls/hr 1X ONCE IV Last administered on 08/06/19at 17:28; Start 08/06/19 at 14:45; Stop 08/06/19 at 15:44; Status DC Sodium Chloride 100 meq/Potassium Chloride 40 meq/ Magnesium Sulfate 15 meq/Calcium Gluconate 15 meq/ Multivitamins 10 ml/Chromium/ Copper/Manganese/ Seleni/Zn 0.5 ml/ Insulin Human Regular 35 unit/ Total Parenteral Nutrition/Amino Acids/Dextrose/ Fat Emulsion Intravenous 1,400 ml @ 58.333 mls/ hr TPN CONT IV Last administered on 08/07/19at 22:46; Start 08/07/19 at 22:00; Stop 08/08/19 at 21:59; Status DC Sodium Chloride 100 meq/Potassium Chloride 40 meq/ Magnesium Sulfate 20 meq/Calc ium Gluconate 15 meq/ Multivitamins 10 ml/Chromium/ Copper/Manganese/ Seleni/Zn 0.5 ml/ Insulin Human Regular 35 unit/ Total Parenteral Nutrition/Amino Acids/Dextrose/ Fat Emulsion Intravenous 1,400 ml @ 58.333 mls/ hr TPN CONT IV Last administered on 08/08/19at 22:31; Start 08/08/19 at 22:00; Stop 08/09/19 at 21:59; Status DC Fentanyl Citrate (Fentanyl 2ml Vial) 50 mcg PRN Q2HR PRN IVP PAIN Last administered on 08/15/19at 13:32; Start 08/08/19 at 21:00; Stop 08/16/19 at 12:53; Status DC Fentanyl Citrate (Fentanyl 2ml Vial) 25 mcg PRN Q2HR PRN IVP PAIN; Start 08/08/19 at 21:00; Stop 08/16/19 at 12:54; Status DC Enoxaparin Sodium (Lovenox 100mg Syringe) 100 mg Q12HR SQ ; Start 08/09/19 at 21:00; Status UNV Amino Acids/ Glycerin/ Electrolytes 1,000 ml @ 75 mls/hr [id number] IV ; Start 08/08/19 at 21:15; Status UNV Sodium Chloride 1,000 ml @ 1,000 mls/hr Q1H PRN IV hypotension; Start 08/09/19 at 07:56; Stop 08/09/19 at 13:55; Status DC Albumin Human 200 ml @ 200 mls/hr 1X PRN PRN IV Hypotension Last administered on 08/09/19at 08:40; Start 08/09/19 at 08:00; Stop 08/09/19 at 13:59; Status DC Sodium Chloride 1,000 ml @ 400 mls/hr Q2H30M PRN IV PATENCY; Start 08/09/19 at 07:56; Stop 08/09/19 at 19:55; Status DC Info (PHARMACY MONITORING -- do not chart) 1 each PRN DAILY PRN MC SEE COMMENTS; Start 08/09/19 at 08:00; Status UNV Info (PHARMACY MONITORING -- do not chart) 1 each PRN DAILY PRN MC SEE COMMENTS; Start 08/09/19 at 08:00; Status UNV Daptomycin 430 mg/ Sodium Chloride 50 ml @ 100 mls/hr Q24H IV Last administered on 08/09/19at 12:35; Start 08/09/19 at 09:00; Stop 08/09/19 at 12:49; Status DC Sodium Chloride 100 meq/Potassium Chloride 40 meq/ Magnesium Sulfate 20 meq/Calcium Gluconate 15 meq/ Multivitamins 10 ml/Chromium/ Copper/Manganese/ Seleni/Zn 0.5 ml/ Insulin Human Regular 35 unit/ Total Parenteral Nutrition/Amino Acids/Dextrose/ Fat Emulsion Intravenous 1,400 ml @ 58.333 mls/ hr TPN CONT IV Last administered on 08/09/19at 21:26; Start 08/09/19 at 22:00; Stop 08/10/19 at 21:59; Status DC Daptomycin 430 mg/ Sodium Chloride 50 ml @ 100 mls/hr Q48H IV ; Start 08/11/19 at 09:00; Stop 08/10/19 at 11:55; Status DC Sodium Chloride 100 meq/Potassium Chloride 40 meq/ Magnesium Sulfate 20 meq/Calcium Gluconate 15 meq/ Multivitamins 10 ml/Chromium/ Copper/Manganese/ Seleni/Zn 0.5 ml/ Insulin Human Regular 35 unit/ Total Parenteral Nutrition/Amino Acids/Dextrose/ Fat Emulsion Intravenous 1,400 ml @ 58.333 mls/ hr TPN CONT IV Last administered on 08/10/19at 22:27; Start 08/10/19 at 22:00; Stop 08/11/19 at 21:59; Status DC Daptomycin 430 mg/ Sodium Chloride 50 ml @ 100 mls/hr Q24H IV Last administered on 08/12/19at 15:07; Start 08/10/19 at 13:00; Stop 08/13/19 at 13:15; Status DC Sodium Chloride 100 meq/Potassium Chloride 40 meq/ Magnesium Sulfate 20 meq/Calcium Gluconate 10 meq/ Multivitamins 10 ml/Chromium/ Copper/Manganese/ Seleni/Zn 0.5 ml/ Insulin Human Regular 35 unit/ Total Parenteral Nutrition/Amino Acids/Dextrose/ Fat Emulsion Intravenous 1,400 ml @ 58.333 mls/ hr TPN CONT IV Last administered on 08/12/19at 00:06; Start 08/11/19 at 22:00; Stop 08/12/19 at 21:59; Status DC Alteplase, Recombinant (Cathflo For Central Catheter Clearance) 1 mg 1X ONCE INT CAT Last administered on 08/12/19at 11:44; Start 08/12/19 at 10:45; Stop 08/12/19 at 10:46; Status DC Ondansetron HCl (Zofran) 4 mg PRN Q6HRS PRN IV NAUSEA/VOMITING; Start 08/15/19 at 07:00; Stop 08/16/19 at 06:59; Status DC Fentanyl Citrate (Fentanyl 2ml Vial) 25 mcg PRN Q5MIN PRN IV MILD PAIN 1-3; Start 08/15/19 at 07:00; Stop 08/16/19 at 06:59; Status DC Fentanyl Citrate (Fentanyl 2ml Vial) 50 mcg PRN Q5MIN PRN IV MODERATE TO SEVERE PAIN Last administered on 08/15/19at 10:17; Start 08/15/19 at 07:00; Stop 08/16/19 at 06:59; Status DC Ringer's Solution 1,000 ml @ 30 mls/hr Q24H IV ; Start 08/15/19 at 07:00; Stop 08/15/19 at 18:59; Status DC Lidocaine HCl (Xylocaine-Mpf 1% 2ml Vial) 2 ml PRN 1X PRN ID PRIOR TO IV START; Start 08/15/19 at 07:00; Stop 08/16/19 at 06:59; Status DC Prochlorperazine Edisylate (Compazine) 5 mg PACU PRN PRN IV NAUSEA, MRX1; Start 08/15/19 at 07:00; Stop 08/16/19 at 06:59; Status DC Sodium Acetate 50 meq/Potassium Acetate 55 meq/ Magnesium Sulfate 20 meq/Calcium Gluconate 10 meq/ Multivitamins 10 ml/Chromium/ Copper/Manganese/ Seleni/Zn 0.5 ml/ Insulin Human Regular 35 unit/ Total Parenteral Nutrition/Amino Acids/Dextrose/ Fat Emulsion Intravenous 1,400 ml @ 58.333 mls/ hr TPN CONT IV ; Start 08/12/19 at 22:00; Stop 08/12/19 at 14:15; Status DC Sodium Acetate 50 meq/Potassium Acetate 55 meq/ Magnesium Sulfate 20 meq/Calcium Gluconate 10 meq/ Multivitamins 10 ml/Chromium/ Copper/Manganese/ Seleni/Zn 0.5 ml/ Insulin Human Regular 35 unit/ Total Parenteral Nutrition/Amino Acids/Dextrose/ Fat Emulsion Intravenous 1,800 ml @ 75 mls/hr TPN CONT IV Last administered on 08/12/19at 22:38; Start 08/12/19 at 22:00; Stop 08/13/19 at 21:59; Status DC Sodium Chloride 1,000 ml @ 1,000 mls/hr Q1H PRN IV hypotension; Start 08/12/19 at 15:31; Stop 08/12/19 at 21:30; Status DC Diphenhydramine HCl (Benadryl) 25 mg 1X PRN PRN IV ITCHING; Start 08/12/19 at 15:45; Stop 08/13/19 at 15:44; Status DC Diphenhydramine HCl (Benadryl) 25 mg 1X PRN PRN IV ITCHING; Start 08/12/19 at 15:45; Stop 08/13/19 at 15:44; Status DC Sodium Chloride 1,000 ml @ 400 mls/hr Q2H30M PRN IV PATENCY; Start 08/12/19 at 15:31; Stop 08/13/19 at 03:30; Status DC Info (PHARMACY MONITORING -- do not chart) 1 each PRN DAILY PRN MC SEE COMMENTS; Start 08/12/19 at 15:45; Stop 09/13/19 at 14:14; Status DC Sodium Acetate 50 meq/Potassium Acetate 55 meq/ Magnesium Sulfate 20 meq/Calcium Gluconate 10 meq/ Multivitamins 10 ml/Chromium/ Copper/Manganese/ Seleni/Zn 0.5 ml/ Insulin Human Regular 35 unit/ Total Parenteral Nutrition/Amino Acids/Dextrose/ Fat Emulsion Intravenous 1,800 ml @ 75 mls/hr TPN CONT IV Last administered on 08/13/19at 22:03; Start 08/13/19 at 22:00; Stop 08/14/19 at 21:59; Status DC Daptomycin 430 mg/ Sodium Chloride 50 ml @ 100 mls/hr Q24H IV Last administered on 08/18/19at 13:00; Start 08/13/19 at 13:00; Stop 08/18/19 at 20:58; Status DC Heparin Sodium (Porcine) 1000 unit/Sodium Chloride 1,001 ml @ 1,001 mls/hr 1X ONCE IRR ; Start 08/15/19 at 06:00; Stop 08/15/19 at 06:59; Status DC Potassium Acetate 55 meq/Magnesium Sulfate 20 meq/ Calcium Gluconate 10 meq/ Multivitamins 10 ml/Chromium/ Copper/Manganese/ Seleni/Zn 0.5 ml/ Insulin Human Regular 35 unit/ Total Parenteral Nutrition/Amino Acids/Dextrose/ Fat Emulsion Intravenous 1,920 ml @ 80 mls/hr TPN CONT IV Last administered on 08/14/19at 22:10; Start 08/14/19 at 22:00; Stop 08/15/19 at 21:59; Status DC Dexamethasone Sodium Phosphate (Decadron) 4 mg STK-MED ONCE .ROUTE ; Start 08/15/19 at 10:56; Stop 08/15/19 at 10:57; Status DC Ondansetron HCl (Zofran) 4 mg STK-MED ONCE .ROUTE ; Start 08/15/19 at 10:56; Stop 08/15/19 at 10:57; Status DC Rocuronium [place] (Zemuron) 50 mg STK-MED ONCE .ROUTE ; Start 08/15/19 at 10:56; Stop 08/15/19 at 10:57; Status DC Fentanyl Citrate (Fentanyl 2ml Vial) 100 mcg STK-MED ONCE .ROUTE ; Start 08/15/19 at 10:56; Stop 08/15/19 at 10:57; Status DC Bupivacaine HCl/ Epinephrine Bitart (Sensorcain-Epi 0.5%-1:647152 Mpf) 30 ml STK-MED ONCE .ROUTE Last administered on 08/15/19at 12:01; Start 08/15/19 at 10:58; Stop 08/15/19 at 10:58; Status DC Cellulose (Surgicel Hemostat 2x14) 1 each STK-MED ONCE .ROUTE ; Start 08/15/19 at 10:58; Stop 08/15/19 at 10:59; Status DC Iohexol (Omnipaque 300 Mg/ml) 50 ml STK-MED ONCE .ROUTE ; Start 08/15/19 at 10:58; Stop 08/15/19 at 10:59; Status DC Cellulose (Surgicel Hemostat 4x8) 1 each STK-MED ONCE .ROUTE ; Start 08/15/19 at 10:58; Stop 08/15/19 at 10:59; Status DC Bisacodyl (Dulcolax Supp) 10 mg STK-MED ONCE .ROUTE ; Start 08/15/19 at 10:59; Stop 08/15/19 at 10:59; Status DC Heparin Sodium (Porcine) 1000 unit/Sodium Chloride 1,001 ml @ 1,001 mls/hr 1X ONCE IRR ; Start 08/15/19 at 12:00; Stop 08/15/19 at 12:59; Status DC Propofol 20 ml @ As Directed STK-MED ONCE IV ; Start 08/15/19 at 11:05; Stop 08/15/19 at 11:05; Status DC Sevoflurane (Ultane) 90 ml STK-MED ONCE IH ; Start 08/15/19 at 11:05; Stop 08/15/19 at 11:05; Status DC Sevoflurane (Ultane) 60 ml STK-MED ONCE IH ; Start 08/15/19 at 12:26; Stop 08/15/19 at 12:27; Status DC Propofol 20 ml @ As Directed STK-MED ONCE IV ; Start 08/15/19 at 12:26; Stop 08/15/19 at 12:27; Status DC Phenylephrine HCl (PHENYLEPHRINE in 0.9% NACL PF) 1 mg STK-MED ONCE IV ; Start 08/15/19 at 12:34; Stop 08/15/19 at 12:34; Status DC Heparin Sodium (Porcine) (Heparin Sodium) 5,000 unit Q12HR SQ Last administered on 08/24/19at 20:57; Start 08/15/19 at 21:00; Stop 08/25/19 at 09:59; Status DC Sodium Chloride (Normal Saline Flush) 3 ml QSHIFT PRN IV AFTER MEDS AND BLOOD DRAWS; Start 08/15/19 at 13:45 Naloxone HCl (Narcan) 0.4 mg PRN Q2MIN PRN IV SEE INSTRUCTIONS Last administered on 09/24/19at 15:15; Start 08/15/19 at 13:45 Sodium Chloride 1,000 ml @ 25 mls/hr Q24H IV Last administered on 09/13/19at 13:37; Start 08/15/19 at 13:37; Stop 09/16/19 at 13:09; Status DC Naloxone HCl (Narcan) 0.4 mg PRN Q2MIN PRN IV SEE INSTRUCTIONS; Start 08/15/19 at 14:30; Status UNV Sodium Chloride 1,000 ml @ 25 mls/hr Q24H IV ; Start 08/15/19 at 14:30; Status UNV Hydromorphone HCl 30 ml @ 0 mls/hr CONT PRN PRN IV PER PROTOCOL Last administered on 08/20/19at 16:08; Start 08/15/19 at 14:30; Stop 08/22/19 at 08:55; Status DC Potassium Acetate 55 meq/Magnesium Sulfate 20 meq/ Calcium Gluconate 10 meq/ Multivitamins 10 ml/Chromium/ Copper/Manganese/ Seleni/Zn 0.5 ml/ Insulin Human Regular 35 unit/ Total Parenteral Nutrition/Amino Acids/Dextrose/ Fat Emulsion Intravenous 1,920 ml @ 80 mls/hr TPN CONT IV Last administered on 08/15/19at 22:01; Start 08/15/19 at 22:00; Stop 08/16/19 at 21:59; Status DC Bumetanide (Bumex) 2 mg [id number] IV Last administered on 08/19/19at 13:50; Start 08/16/19 at 14:00; Stop 08/20/19 at 14:10; Status DC Meropenem 1 gm/ Sodium Chloride 100 ml @ 200 mls/hr Q8HRS IV Last administered on 09/09/19at 05:53; Start 08/16/19 at 14:00; Stop 09/09/19 at 09:31; Status DC Potassium Acetate 55 meq/Magnesium Sulfate 20 meq/ Calcium Gluconate 10 meq/ Multivitamins 10 ml/Chromium/ Copper/Manganese/ Seleni/Zn 0.5 ml/ Insulin Human Regular 35 unit/ Total Parenteral Nutrition/Amino Acids/Dextrose/ Fat Emulsion Intravenous 1,920 ml @ 80 mls/hr TPN CONT IV Last administered on 08/16/19at 22:02; Start 08/16/19 at 22:00; Stop 08/17/19 at 21:59; Status DC Hydromorphone HCl (Dilaudid Standard [employer]) 12 mg STK-MED ONCE IV ; Start 08/15/19 at 14:35; Stop 08/16/19 at 13:53; Status DC Artificial Tears (Artificial Tears) 1 drop PRN Q15MIN PRN OU DRY EYE Last administered on 10/11/19at 21:17; Start 08/17/19 at 05:30 Hydromorphone HCl (Dilaudid Standard [employer]) 12 mg STK-MED ONCE IV ; Start 08/16/19 at 12:05; Stop 08/17/19 at 09:15; Status DC Potassium Acetate 65 meq/Magnesium Sulfate 20 meq/ Calcium Gluconate 10 meq/ Multivitamins 10 ml/Chromium/ Copper/Manganese/ Seleni/Zn 0.5 ml/ Insulin Human Regular 30 unit/ Total Parenteral Nutrition/Amino Acids/Dextrose/ Fat Emulsion Intravenous 1,920 ml @ 80 mls/hr TPN CONT IV Last administered on 08/17/19at 22:22; Start 08/17/19 at 22:00; Stop 08/18/19 at 21:59; Status DC Cyclobenzaprine HCl (Flexeril) 10 mg PRN Q6HRS PRN PO MUSCLE SPASMS; Start 08/18/19 at 10:45 Potassium Acetate 55 meq/Magnesium Sulfate 20 meq/ Calcium Gluconate 10 meq/ Multivitamins 10 ml/Chromium/ Copper/Manganese/ Seleni/Zn 0.5 ml/ Insulin Human Regular 30 unit/ Total Parenteral Nutrition/Amino Acids/Dextrose/ Fat Emulsion Intravenous 1,920 ml @ 80 mls/hr TPN CONT IV Last administered on 08/19/19at 01:00; Start 08/18/19 at 22:00; Stop 08/19/19 at 21:59; Status DC Magnesium Sulfate 50 ml @ 25 mls/hr 1X ONCE IV Last administered on 08/18/19at 17:18; Start 08/18/19 at 12:45; Stop 08/18/19 at 14:44; Status DC Potassium Chloride/Water 100 ml @ 100 mls/hr 1X ONCE IV Last administered on 08/19/19at 11:27; Start 08/19/19 at 12:00; Stop 08/19/19 at 12:59; Status DC Hydromorphone HCl (Dilaudid Standard [employer]) 12 mg STK-MED ONCE IV ; Start 08/17/19 at 10:50; Stop 08/19/19 at 11:02; Status DC Hydromorphone HCl (Dilaudid Standard [employer]) 12 mg STK-MED ONCE IV ; Start 08/18/19 at 13:47; Stop 08/19/19 at 11:03; Status DC Potassium Acetate 30 meq/Magnesium Sulfate 20 meq/ Calcium Gluconate 10 meq/ Multivitamins 10 ml/Chromium/ Copper/Manganese/ Seleni/Zn 0.5 ml/ Insulin Human Regular 30 unit/ Potassium Chloride 30 meq/ Total Parenteral Nutrition/Amino Acids/Dextrose/ Fat Emulsion Intravenous 1,920 ml @ 80 mls/hr TPN CONT IV Last administered on 08/19/19at 22:34; Start 08/19/19 at 22:00; Stop 08/20/19 at 21:59; Status DC Potassium Chloride/Water 100 ml @ 100 mls/hr Q1H IV Last administered on 08/20/19at 13:05; Start 08/20/19 at 07:00; Stop 08/20/19 at 10:59; Status DC Magnesium Sulfate 50 ml @ 25 mls/hr 1X ONCE IV Last administered on 08/20/19at 10:34; Start 08/20/19 at 10:30; Stop 08/20/19 at 12:29; Status DC Potassium Chloride 75 meq/ Magnesium Sulfate 20 meq/Calcium Gluconate 10 meq/ Multivitamins 10 ml/Chromium/ Copper/Manganese/ Seleni/Zn 0.5 ml/ Insulin Human Regular 30 unit/ Total Parenteral Nutrition/Amino Acids/Dextrose/ Fat Emulsion Intravenous 1,920 ml @ 80 mls/hr TPN CONT IV Last administered on 08/20/19at 21:51; Start 08/20/19 at 22:00; Stop 08/21/19 at 22:00; Status DC Potassium Chloride 75 meq/ Magnesium Sulfate 20 meq/Calcium Gluconate 10 meq/ Multivitamins 10 ml/Chromium/ Copper/Manganese/ Seleni/Zn 0.5 ml/ Insulin Human Regular 25 unit/ Total Parenteral Nutrition/Amino Acids/Dextrose/ Fat Emulsion Intravenous 1,920 ml @ 80 mls/hr TPN CONT IV Last administered on 08/21/19at 22:04; Start 08/21/19 at 22:00; Stop 08/22/19 at 21:59; Status DC Hydromorphone HCl (Dilaudid) 0.4 mg PRN Q4HRS PRN IVP PAIN Last administered on 08/22/19at 10:57; Start 08/22/19 at 09:00; Stop 08/22/19 at 18:59; Status DC Micafungin Sodium 100 mg/Dextrose 100 ml @ 100 mls/hr Q24H IV Last administered on 09/13/19at 12:17; Start 08/22/19 at 11:00; Stop 09/14/19 at 09:59; Status DC Daptomycin 485 mg/ Sodium Chloride 50 ml @ 100 mls/hr Q24H IV Last administered on 08/29/19at 13:10; Start 08/22/19 at 11:00; Stop 08/30/19 at 07:44; Status DC Potassium Chloride 75 meq/ Magnesium Sulfate 15 meq/Calcium Gluconate 8 meq/ Multivitamins 10 ml/Chromium/ Copper/Manganese/ Seleni/Zn 0.5 ml/ Insulin Human Regular 25 unit/ Total Parenteral Nutrition/Amino Acids/Dextrose/ Fat Emulsion Intravenous 1,920 ml @ 80 mls/hr TPN CONT IV Last administered on 08/22/19at 23:08; Start 08/22/19 at 22:00; Stop 08/23/19 at 21:59; Status DC Haloperidol Lactate (Haldol Inj) 3 mg 1X ONCE IVP Last administered on 08/22/19at 14:37; Start 08/22/19 at 14:30; Stop 08/22/19 at 14:31; Status DC Hydromorphone HCl (Dilaudid) 1 mg PRN Q4HRS PRN IVP PAIN Last administered on 09/05/19at 06:25; Start 08/22/19 at 19:00; Stop 09/05/19 at 17:10; Status DC Potassium Chloride 75 meq/ Magnesium Sulfate 15 meq/Calcium Gluconate 8 meq/ Multivitamins 10 ml/Chromium/ Copper/Manganese/ Seleni/Zn 0.5 ml/ Insulin Human Regular 20 unit/ Total Parenteral Nutrition/Amino Acids/Dextrose/ Fat Emulsion Intravenous 1,920 ml @ 80 mls/hr TPN CONT IV Last administered on 08/23/19at 22:10; Start 08/23/19 at 22:00; Stop 08/24/19 at 21:59; Status DC Lidocaine HCl (Buffered Lidocaine 1%) 3 ml STK-MED ONCE .ROUTE ; Start 08/24/19 a t 11:31; Stop 08/24/19 at 11:31; Status DC Lidocaine HCl (Buffered Lidocaine 1%) 3 ml STK-MED ONCE .ROUTE ; Start 08/24/19 at 12:28; Stop 08/24/19 at 12:29; Status DC Lidocaine HCl (Buffered Lidocaine 1%) 6 ml 1X ONCE INJ Last administered on 08/24/19at 12:53; Start 08/24/19 at 12:45; Stop 08/24/19 at 12:46; Status DC Potassium Chloride 75 meq/ Magnesium Sulfate 15 meq/Calcium Gluconate 8 meq/ Multivitamins 10 ml/Chromium/ Copper/Manganese/ Seleni/Zn 0.5 ml/ Insulin Human Regular 20 unit/ Total Parenteral Nutrition/Amino Acids/Dextrose/ Fat Emulsion Intravenous 1,920 ml @ 80 mls/hr TPN CONT IV Last administered on 08/24/19at 22:00; Start 08/24/19 at 22:00; Stop 08/25/19 at 21:59; Status DC Potassium Chloride 75 meq/ Magnesium Sulfate 15 meq/Calcium Gluconate 8 meq/ Multivitamins 10 ml/Chromium/ Copper/Manganese/ Seleni/Zn 0.5 ml/ Insulin Human Regular 15 unit/ Total Parenteral Nutrition/Amino Acids/Dextrose/ Fat Emulsion Intravenous 1,920 ml @ 80 mls/hr TPN CONT IV Last administered on 08/25/19at 22:28; Start 08/25/19 at 22:00; Stop 08/26/19 at 21:59; Status DC Vecuronium [place] (Norcuron Bolus) 6 mg PRN Q6HRS PRN IV VENT ASYNCHRONY; Start 08/25/19 at 19:15; Stop 08/25/19 at 19:35; Status DC Bumetanide (Bumex) 2 mg 1X ONCE IV Last administered on 08/25/19at 22:09; Start 08/25/19 at 19:45; Stop 08/25/19 at 19:46; Status DC Lidocaine HCl (Buffered Lidocaine 1%) 3 ml STK-MED ONCE .ROUTE ; Start 08/26/19 at 07:59; Stop 08/26/19 at 07:59; Status DC Midazolam HCl (Versed) 5 mg STK-MED ONCE .ROUTE ; Start 08/26/19 at 08:36; Stop 08/26/19 at 08:36; Status DC Fentanyl Citrate (Fentanyl 5ml Vial) 250 mcg STK-MED ONCE .ROUTE ; Start 08/26/19 at 08:36; Stop 08/26/19 at 08:37; Status DC Lidocaine HCl (Buffered Lidocaine 1%) 3 ml 1X ONCE IJ Last administered on 08/26/19at 09:30; Start 08/26/19 at 09:15; Stop 08/26/19 at 09:16; Status DC Midazolam HCl (Versed) 5 mg 1X ONCE IV Last administered on 08/26/19at 09:30; Start 08/26/19 at 09:15; Stop 08/26/19 at 09:16; Status DC Fentanyl Citrate (Fentanyl 5ml Vial) 250 mcg 1X ONCE IV Last administered on 08/26/19at 09:30; Start 08/26/19 at 09:15; Stop 08/26/19 at 09:16; Status DC Bumetanide (Bumex) 2 mg DAILY IV Last administered on 09/05/19at 08:07; Start 08/26/19 at 10:00; Stop 09/05/19 at 17:15; Status DC Potassium Chloride 75 meq/ Magnesium Sulfate 15 meq/ Multivitamins 10 ml/Chromium/ Copper/Manganese/ Seleni/Zn 0.5 ml/ Insulin Human Regular 15 unit/ Total Parenteral Nutrition/Amino Acids/Dextrose/ Fat Emulsion Intravenous 1,920 ml @ 80 mls/hr TPN CONT IV Last administered on 08/26/19at 21:59; Start 08/26/19 at 22:00; Stop 08/27/19 at 21:59; Status DC Metoclopramide HCl (Reglan Vial) 10 mg PRN Q3HRS PRN IVP NAUSEA/VOMITING-3rd choice Last administered on 09/01/19at 04:25; Start 08/27/19 at 16:45 Potassium Chloride 75 meq/ Magnesium Sulfate 15 meq/ Multivitamins 10 ml/Chromium/ Copper/Manganese/ Seleni/Zn 0.5 ml/ Insulin Human Regular 15 unit/ Total Parenteral Nutrition/Amino Acids/Dextrose/ Fat Emulsion Intravenous 1,920 ml @ 80 mls/hr TPN CONT IV Last administered on 08/27/19at 22:41; Start 08/27/19 at 22:00; Stop 08/28/19 at 21:59; Status DC Magnesium Sulfate 50 ml @ 25 mls/hr 1X ONCE IV Last administered on 08/28/19at 10:44; Start 08/28/19 at 09:00; Stop 08/28/19 at 10:59; Status DC Potassium Chloride/Water 100 ml @ 100 mls/hr 1X ONCE IV Last administered on 08/28/19at 09:37; Start 08/28/19 at 09:00; Stop 08/28/19 at 09:59; Status DC Duloxetine HCl (Cymbalta) 30 mg DAILY PO Last administered on 08/29/19at 09:48; Start 08/28/19 at 14:00; Stop 08/31/19 at 10:25; Status DC Potassium Chloride 80 meq/ Magnesium Sulfate 20 meq/ Multivitamins 10 ml/Chromium/ Copper/Manganese/ Seleni/Zn 0.5 ml/ Insulin Human Regular 15 unit/ Total Parenteral Nutrition/Amino Acids/Dextrose/ Fat Emulsion Intravenous 1,920 ml @ 80 mls/hr TPN CONT IV Last administered on 08/28/19at 21:42; Start 08/28/19 at 22:00; Stop 08/29/19 at 21:59; Status DC Potassium Chloride 80 meq/ Magnesium Sulfate 20 meq/ Multivitamins 10 ml/Chromium/ Copper/Manganese/ Seleni/Zn 0.5 ml/ Insulin Human Regular 15 unit/ Total Parenteral Nutrition/Amino Acids/Dextrose/ Fat Emulsion Intravenous 1,920 ml @ 80 mls/hr TPN CONT IV Last administered on 08/29/19at 22:20; Start 08/29/19 at 22:00; Stop 08/30/19 at 21:59; Status DC Lidocaine HCl (Buffered Lidocaine 1%) 3 ml STK-MED ONCE .ROUTE ; Start 08/30/19 at 09:54; Stop 08/30/19 at 09:55; Status DC Hydromorphone HCl (Dilaudid Standard [employer]) 12 mg STK-MED ONCE IV ; Start 08/19/19 at 15:50; Stop 08/30/19 at 11:24; Status DC Potassium Chloride 80 meq/ Magnesium Sulfate 20 meq/ Multivitamins 10 ml /Chromium/ Copper/Manganese/ Seleni/Zn 0.5 ml/ Insulin Human Regular 15 unit/ Total Parenteral Nutrition/Amino Acids/Dextrose/ Fat Emulsion Intravenous 1,920 ml @ 80 mls/hr TPN CONT IV Last administered on 08/30/19at 21:40; Start 08/30/19 at 22:00; Stop 08/31/19 at 21:59; Status DC Lidocaine HCl (Buffered Lidocaine 1%) 6 ml 1X ONCE INJ Last administered on 08/30/19at 14:15; Start 08/30/19 at 14:15; Stop 08/30/19 at 14:16; Status DC Potassium Chloride 80 meq/ Magnesium Sulfate 20 meq/ Multivitamins 10 m l/Chromium/ Copper/Manganese/ Seleni/Zn 1 ml/ Insulin Human Regular 15 unit/ Total Parenteral Nutrition/Amino Acids/Dextrose/ Fat Emulsion Intravenous 1,920 ml @ 80 mls/hr TPN CONT IV Last administered on 08/31/19at 22:04; Start 08/31/19 at 22:00; Stop 09/01/19 at 21:59; Status DC Potassium Chloride/Water 100 ml @ 100 mls/hr 1X ONCE IV Last administered on 09/01/19at 11:34; Start 09/01/19 at 11:00; Stop 09/01/19 at 11:59; Status DC Potassium Chloride 90 meq/ Magnesium Sulfate 20 meq/ Multivitamins 10 ml/Chromium/ Copper/Manganese/ Seleni/Zn 1 ml/ Insulin Human Regular 15 unit/ Total Parenteral Nutrition/Amino Acids/Dextrose/ Fat Emulsion Intravenous 1,920 ml @ 80 mls/hr TPN CONT IV Last administered on 09/01/19at 22:57; Start 09/01/19 at 22:00; Stop 09/02/19 at 21:59; Status DC Potassium Chloride 90 meq/ Magnesium Sulfate 20 meq/ Multivitamins 10 ml/Chromium/ Copper/Manganese/ Seleni/Zn 1 ml/ Insulin Human Regular 15 unit/ Total Parenteral Nutrition/Amino Acids/Dextrose/ Fat Emulsion Intravenous 1,920 ml @ 80 mls/hr TPN CONT IV Last administered on 09/02/19at 22:48; Start 09/02/19 at 22:00; Stop 09/03/19 at 21:59; Status DC Potassium Chloride 90 meq/ Magnesium Sulfate 20 meq/ Multivitamins 10 ml/Chromium/ Copper/Manganese/ Seleni/Zn 1 ml/ Insulin Human Regular 15 unit/ Total Parenteral Nutrition/Amino Acids/Dextrose/ Fat Emulsion Intravenous 1,890 ml @ 78.75 mls/ hr TPN CONT IV Last administered on 09/03/19at 22:15; Start 09/03/19 at 22:00; Stop 09/04/19 at 21:59; Status DC Linezolid/Dextrose 300 ml @ 300 mls/hr Q12HR IV Last administered on 09/06/19at 21:08; Start 09/04/19 at 09:00; Stop 09/07/19 at 08:11; Status DC Daptomycin 450 mg/ Sodium Chloride 50 ml @ 100 mls/hr Q24H IV Last administered on 09/07/19at 09:25; Start 09/04/19 at 09:00; Stop 09/08/19 at 08:30; Status DC Potassium Chloride 90 meq/ Magnesium Sulfate 20 meq/ Multivitamins 10 ml/Chromium/ Copper/Manganese/ Seleni/Zn 1 ml/ Insulin Human Regular 15 unit/ Total Parenteral Nutrition/Amino Acids/Dextrose/ Fat Emulsion Intravenous 1,890 ml @ 78.75 mls/ hr TPN CONT IV Last administered on 09/04/19at 21:34; Start 09/04/19 at 22:00; Stop 09/05/19 at 21:59; Status DC Lorazepam (Ativan Inj) 2 mg STK-MED ONCE .ROUTE ; Start 09/04/19 at 14:58; Stop 09/04/19 at 14:58; Status DC Metoprolol Tartrate (Lopressor Vial) 5 mg 1X ONCE IVP Last administered on 09/04/19at 15:31; Start 09/04/19 at 15:15; Stop 09/04/19 at 15:16; Status DC Lorazepam (Ativan Inj) 2 mg 1X ONCE IVP Last administered on 09/04/19at 15:30; Start 09/04/19 at 15:15; Stop 09/04/19 at 15:16; Status DC Enoxaparin Sodium (Lovenox 40mg Syringe) 40 mg Q24H SQ Last administered on 09/23/19at 17:44; Start 09/04/19 at 17:00; Stop 09/25/19 at 06:50; Status DC Lorazepam (Ativan Inj) 1 mg PRN Q4HRS PRN IVP ANXIETY / AGITATION MILD-MOD Last administered on 09/18/19at 15:55; Start 09/04/19 at 19:15; Stop 09/20/19 at 11:45; Status DC Lorazepam (Ativan Inj) 2 mg PRN Q4HRS PRN IVP ANXIETY / AGITATION SEVERE Last administered on 09/19/19at 07:55; Start 09/04/19 at 19:15; Stop 09/20/19 at 11:45; Status DC Fentanyl Citrate (Fentanyl 2ml Vial) 50 mcg PRN Q4HRS PRN IVP SEVERE PAIN Last administered on 10/01/19at 05:15; Start 09/05/19 at 13:15; Stop 10/02/19 at 09:29; Status DC Fentanyl Citrate (Fentanyl 2ml Vial) 25 mcg PRN Q4HRS PRN IVP MODERATE PAIN Last administered on 10/01/19at 00:27; Start 09/05/19 at 13:15; Stop 10/02/19 at 09:30; Status DC Potassium Chloride 90 meq/ Magnesium Sulfate 20 meq/ Multivitamins 10 ml/Chromium/ Copper/Manganese/ Seleni/Zn 1 ml/ Insulin Human Regular 15 unit/ Total Parenteral Nutrition/Amino Acids/Dextrose/ Fat Emulsion Intravenous 1,890 ml @ 78.75 mls/ hr TPN CONT IV Last administered on 09/05/19at 22:18; Start 09/05/19 at 22:00; Stop 09/06/19 at 21:59; Status DC Furosemide (Lasix) 40 mg 1X ONCE IVP Last administered on 09/05/19at 21:51; Start 09/05/19 at 21:45; Stop 09/05/19 at 21:48; Status DC Albumin Human 100 ml @ 100 mls/hr 1X PRN PRN IV SEE COMMENTS; Start 09/06/19 at 01:30 Furosemide (Lasix) 40 mg [id number] IVP Last administered on 09/21/19at 08:04; Start 09/06/19 at 14:00; Stop 09/21/19 at 13:07; Status DC Potassium Chloride 90 meq/ Magnesium Sulfate 20 meq/ Multivitamins 10 ml/Chr omium/ Copper/Manganese/ Seleni/Zn 1 ml/ Insulin Human Regular 15 unit/ Total Parenteral Nutrition/Amino Acids/Dextrose/ Fat Emulsion Intravenous 1,800 ml @ 75 mls/hr TPN CONT IV Last administered on 09/06/19at 22:31; Start 09/06/19 at 22:00; Stop 09/07/19 at 21:59; Status DC Potassium Chloride 90 meq/ Magnesium Sulfate 20 meq/ Multivitamins 10 ml/Chromium/ Copper/Manganese/ Seleni/Zn 1 ml/ Insulin Human Regular 15 unit/ Total Parenteral Nutrition/Amino Acids/Dextrose/ Fat Emulsion Intravenous 1,800 ml @ 75 mls/hr TPN CONT IV Last administered on 09/07/19at 22:28; Start 09/07/19 at 22:00; Stop 09/08/19 at 21:59; Status DC Potassium Chloride 110 meq/ Magnesium Sulfate 20 meq/ Multivitamins 10 ml/Chromium/ Copper/Manganese/ Seleni/Zn 1 ml/ Insulin Human Regular 15 unit/ Total Parenteral Nutrition/Amino Acids/Dextrose/ Fat Emulsion Intravenous 1,800 ml @ 75 mls/hr TPN CONT IV Last administered on 09/08/19at 22:01; Start 09/08/19 at 22:00; Stop 09/09/19 at 21:59; Status DC Saliva Substitute (Biotene Moisturizing Mouth) 2 spray PRN Q15MIN PRN PO DRY MOUTH; Start 09/08/19 at 11:00 Potassium Chloride 110 meq/ Magnesium Sulfate 20 meq/ Multivitamins 10 ml/Chromium/ Copper/Manganese/ Seleni/Zn 1 ml/ Insulin Human Regular 15 unit/ Total Parenteral Nutrition/Amino Acids/Dextrose/ Fat Emulsion Intravenous 1,800 ml @ 75 mls/hr TPN CONT IV Last administered on 09/09/19at 22:21; Start at 22:00; Stop 09/10/19 at 21:59; Status DC Potassium Chloride 110 meq/ Magnesium Sulfate 20 meq/ Multivitamins 10 ml/Chr omium/ Copper/Manganese/ Seleni/Zn 1 ml/ Insulin Human Regular 15 unit/ Total Parenteral Nutrition/Amino Acids/Dextrose/ Fat Emulsion Intravenous 1,800 ml @ 75 mls/hr TPN CONT IV Last administered on 09/10/19at 22:04; Start 09/10/19 at 22:00; Stop 09/11/19 at 21:59; Status DC Potassium Chloride 110 meq/ Magnesium Sulfate 20 meq/ Multivitamins 10 ml/Chromium/ Copper/Manganese/ Seleni/Zn 1 ml/ Insulin Human Regular 15 unit/ Total Parenteral Nutrition/Amino Acids/Dextrose/ Fat Emulsion Intravenous 1,800 ml @ 75 mls/hr TPN CONT IV Last administered on 09/11/19at 22:48; Start 09/11/19 at 22:00; Stop 09/12/19 at 21:59; Status DC Potassium Chloride 70 meq/ Magnesium Sulfate 20 meq/ Multivitamins 10 ml/Chromium/ Copper/Manganese/ Seleni/Zn 1 ml/ Insulin Human Regular 15 unit/ Total Parenteral Nutrition/Amino Acids/Dextrose/ Fat Emulsion Intravenous 1,800 ml @ 75 mls/hr TPN CONT IV Last administered on 09/12/19at 21:39; Start 09/12/19 at 22:00; Stop 09/13/19 at 21:59; Status DC Meropenem 500 mg/ Sodium Chloride 50 ml @ 100 mls/hr Q6HRS IV Last administered on 09/14/19at 06:02; Start 09/12/19 at 18:00; Stop 09/14/19 at 09:59; Status DC Barium Sulfate (Varibar Thin Liquid Apple) 148 gm 1X ONCE PO ; Start 09/13/19 at 11:45; Stop 09/13/19 at 11:49; Status DC Potassium Chloride 70 meq/ Magnesium Sulfate 20 meq/ Multivitamins 10 ml/Chromium/ Copper/Manganese/ Seleni/Zn 1 ml/ Insulin Human Regular 15 unit/ Total Parenteral Nutrition/Amino Acids/Dextrose/ Fat Emulsion Intravenous 1,800 ml @ 75 mls/hr TPN CONT IV Last administered on 09/13/19at 22:27; Start 09/13/19 at 22:00; Stop 09/14/19 at 21:59; Status DC Piperacillin Sod/ Tazobactam Sod 3.375 gm/Sodium Chloride 50 ml @ 100 mls/hr Q6HRS IV Last administered on 09/22/19at 06:10; Start 09/14/19 at 12:00; Stop at 07:26; Status DC Potassium Chloride 70 meq/ Magnesium Sulfate 20 meq/ Multivitamins 10 ml/Chromium/ Copper/Manganese/ Seleni/Zn 1 ml/ Insulin Human Regular 15 unit/ Total Parenteral Nutrition/Amino Acids/Dextrose/ Fat Emulsion Intravenous 1,800 ml @ 75 mls/hr TPN CONT IV Last administered on 09/14/19at 22:03; Start 09/14/19 at 22:00; Stop 09/15/19 at 21:59; Status DC Potassium Chloride 70 meq/ Magnesium Sulfate 20 meq/ Multivitamins 10 ml/Chromium/ Copper/Manganese/ Seleni/Zn 1 ml/ Insulin Human Regular 15 unit/ Total Parenteral Nutrition/Amino Acids/Dextrose/ Fat Emulsion Intravenous 1,800 ml @ 75 mls/hr TPN CONT IV Last administered on 09/15/19at 22:33; Start 09/15/19 at 22:00; Stop 09/16/19 at 21:59; Status DC Potassium Chloride 70 meq/ Magnesium Sulfate 20 meq/ Multivitamins 10 ml/Chromium/ Copper/Manganese/ Seleni/Zn 1 ml/ Insulin Human Regular 15 unit/ Total Parenteral Nutrition/Amino Acids/Dextrose/ Fat Emulsion Intravenous 1,800 ml @ 75 mls/hr TPN CONT IV Last administered on 09/16/19at 23:13; Start 09/16/19 at 22:00; Stop 09/17/19 at 21:59; Status DC Potassium Chloride 80 meq/ Magnesium Sulfate 20 meq/ Multivitamins 10 ml/Chromium/ Copper/Manganese/ Seleni/Zn 1 ml/ Insulin Human Regular 15 unit/ Total Parenteral Nutrition/Amino Acids/Dextrose/ Fat Emulsion Intravenous 1,800 ml @ 75 mls/hr TPN CONT IV Last administered on 09/17/19at 22:30; Start 09/17/19 at 22:00; Stop 09/18/19 at 21:59; Status DC Potassium Chloride 80 meq/ Magnesium Sulfate 20 meq/ Multivitamins 10 ml/Chromium/ Copper/Manganese/ Seleni/Zn 1 ml/ Insulin Human Regular 15 unit/ Total Parenteral Nutrition/Amino Acids/Dextrose/ Fat Emulsion Intravenous 1,800 ml @ 75 mls/hr TPN CONT IV Last administered on 09/18/19at 21:54; Start 09/18/19 at 22:00; Stop 09/19/19 at 21:59; Status DC Potassium Chloride/Water 100 ml @ 100 mls/hr 1X ONCE IV Last administered on 09/19/19at 10:15; Start 09/19/19 at 10:00; Stop 09/19/19 at 10:59; Status DC Potassium Chloride 90 meq/ Magnesium Sulfate 20 meq/ Multivitamins 10 ml/Chromium/ Copper/Manganese/ Seleni/Zn 1 ml/ Insulin Human Regular 20 unit/ Total Parenteral Nutrition/Amino Acids/Dextrose/ Fat Emulsion Intravenous 1,800 ml @ 75 mls/hr TPN CONT IV Last administered on 09/19/19at 22:28; Start 09/19/19 at 22:00; Stop 09/20/19 at 21:59; Status DC Potassium Chloride 90 meq/ Magnesium Sulfate 20 meq/ Multivitamins 10 ml/Chromium/ Copper/Manganese/ Seleni/Zn 1 ml/ Insulin Human Regular 20 unit/ Total Parenteral Nutrition/Amino Acids/Dextrose/ Fat Emulsion Intravenous 1,800 ml @ 75 mls/hr TPN CONT IV Last administered on 09/20/19at 22:08; Start 09/20/19 at 22:00; Stop 09/21/19 at 21:59; Status DC Lorazepam (Ativan Inj) 0.25 mg PRN Q4HRS PRN IVP ANXIETY / AGITATION Last administered on 10/01/19at 02:25; Start 09/21/19 at 07:30 Potassium Chloride 90 meq/ Magnesium Sulfate 20 meq/ Multivitamins 10 ml/Chromium/ Copper/Manganese/ Seleni/Zn 1 ml/ Insulin Human Regular 20 unit/ Total Parenteral Nutrition/Amino Acids/Dextrose/ Fat Emulsion Intravenous 1,800 ml @ 75 mls/hr TPN CONT IV Last administered on 09/21/19at 23:13; Start 09/21/19 at 22:00; Stop 09/22/19 at 21:59; Status DC Furosemide (Lasix) 40 mg DAILY IVP Last administered on 09/23/19at 11:14; Start 09/21/19 at 13:30; Stop 09/25/19 at 09:12; Status DC Fluoxetine HCl (PROzac) 20 mg QHS PEG Last administered on 10/12/19at 21:41; Start 09/22/19 at 21:00 Fentanyl (Duragesic 50mcg/ Hr Patch) 1 patch Q72H TD Last administered on 09/22/19at 21:22; Start 09/22/19 at 21:00; Stop 10/01/19 at 12:00; Status DC Potassium Chloride 40 meq/ Potassium Acetate 60 meq/Magnesium Sulfate 10 meq/ Multivitamins 10 ml/Chromium/ Copper/Manganese/ Seleni/Zn 1 ml/ Insulin Human Regular 20 unit/ Total Parenteral Nutrition/Amino Acids/Dextrose/ Fat Emulsion Intravenous 1,800 ml @ 75 mls/hr TPN CONT IV Last administered on 09/23/19at 00:03; Start 09/22/19 at 22:00; Stop 09/23/19 at 21:59; Status DC Potassium Acetate 80 meq/Magnesium Sulfate 5 meq/ Multivitamins 10 ml/Chromium/ Copper/Manganese/ Seleni/Zn 1 ml/ Insulin Human Regular 20 unit/ Total Parenteral Nutrition/Amino Acids/Dextrose/ Fat Emulsion Intravenous 1,920 ml @ 80 mls/hr TPN CONT IV Last administered on 09/23/19at 21:59; Start 09/23/19 at 22:00; Stop 09/24/19 at 21:59; Status DC Potassium Acetate 60 meq/Magnesium Sulfate 5 meq/ Multivitamins 10 ml/Chromium/ Copper/Manganese/ Seleni/Zn 1 ml/ Insulin Human Regular 30 unit/ Total Parenteral Nutrition/Amino Acids/Dextrose/ Fat Emulsion Intravenous 1,920 ml @ 80 mls/hr TPN CONT IV Last administered on 09/24/19at 21:54; Start 09/24/19 at 22:00; Stop 09/25/19 at 21:59; Status DC Norepinephrine Bitartrate 8 mg/ Dextrose 258 ml @ 13.332 mls/ hr CONT PRN IV PER PROTOCOL Last administered on 09/25/19at 21:46; Start 09/25/19 at 06:30 Albumin Human 500 ml @ 125 mls/hr 1X ONCE IV Last administered on 09/25/19at 08:10; Start 09/25/19 at 08:15; Stop 09/25/19 at 12:14; Status DC Potassium Acetate 40 meq/Magnesium Sulfate 5 meq/ Multivitamins 10 ml/Chromium/ Copper/Manganese/ Seleni/Zn 1 ml/ Insulin Human Regular 30 unit/ Total Parenteral Nutrition/Amino Acids/Dextrose/ Fat Emulsion Intravenous 1,920 ml @ 80 mls/hr TPN CONT IV Last administered on 09/25/19at 22:23; Start 09/25/19 at 22:00; Stop 09/26/19 at 21:59; Status DC Meropenem 1 gm/ Sodium Chloride 100 ml @ 200 mls/hr Q8HRS IV ; Start 09/25/19 at 14:00; Status Cancel Meropenem 1 gm/ Sodium Chloride 100 ml @ 200 mls/hr Q8HRS IV Last administered on 09/25/19at 11:04; Start 09/25/19 at 10:00; Stop 09/25/19 at 13:00; Status DC Meropenem 1 gm/ Sodium Chloride 100 ml @ 200 mls/hr Q12HR IV Last administered on 10/13/19at 08:27; Start 09/25/19 at 21:00; Stop 10/13/19 at 08:56; Status DC Sodium Chloride 1,000 ml @ 1,000 mls/hr 1X ONCE IV Last administered on 09/25/19at 11:06; Start 09/25/19 at 10:45; Stop 09/25/19 at 11:44; Status DC Micafungin Sodium 100 mg/Dextrose 100 ml @ 100 mls/hr Q24H IV Last administered on 10/12/19at 12:34; Start 09/25/19 at 11:00; Stop 10/13/19 at 08:56; Status DC Daptomycin 410 mg/ Sodium Chloride 50 ml @ 100 mls/hr Q24H IV Last administered on 09/27/19at 13:33; Start 09/25/19 at 14:00; Stop 09/28/19 at 08:30; Status DC Midazolam HCl (Versed) 2 mg STK-MED ONCE .ROUTE ; Start 09/25/19 at 14:47; Stop 09/25/19 at 14:48; Status DC Fentanyl Citrate (Fentanyl 2ml Vial) 100 mcg STK-MED ONCE .ROUTE ; Start 09/25/19 at 14:47; Stop 09/25/19 at 14:48; Status DC Flumazenil (Romazicon) 0.5 mg STK-MED ONCE IV ; Start 09/25/19 at 14:48; Stop 09/25/19 at 14:48; Status DC Naloxone HCl (Narcan) 0.4 mg STK-MED ONCE .ROUTE ; Start 09/25/19 at 14:48; Stop 09/25/19 at 14:48; Status DC Lidocaine HCl (Lidocaine 1% 20ml Vial) 20 ml STK-MED ONCE .ROUTE ; Start 09/25/19 at 14:48; Stop 09/25/19 at 14:48; Status DC Midazolam HCl (Versed) 2 mg 1X ONCE IV Last administered on 09/25/19at 15:28; Start 09/25/19 at 15:00; Stop 09/25/19 at 15:01; Status DC Fentanyl Citrate (Fentanyl 2ml Vial) 100 mcg 1X ONCE IV Last administered on 09/25/19at 15:28; Start 09/25/19 at 15:00; Stop 09/25/19 at 15:01; Status DC Lidocaine HCl (Lidocaine 1% 20ml Vial) 20 ml 1X ONCE INJ Last administered on 09/25/19at 15:30; Start 09/25/19 at 15:00; Stop 09/25/19 at 15:01; Status DC Sodium Chloride 1,000 ml @ 100 mls/hr Q10H IV Last administered on 10/04/19at 07:30; Start 09/25/19 at 20:00; Stop 10/04/19 at 11:26; Status DC Sodium Bicarbonate (Sodium Bicarb Adult 8.4% Syr) 50 meq 1X ONCE IV Last administered on 09/25/19at 21:47; Start 09/25/19 at 22:00; Stop 09/25/19 at 22:01; Status DC Potassium Acetate 40 meq/Magnesium Sulfate 5 meq/ Multivitamins 10 ml/Chromium/ Copper/Manganese/ Seleni/Zn 1 ml/ Insulin Human Regular 30 unit/ Total Parenteral Nutrition/Amino Acids/Dextrose/ Fat Emulsion Intravenous 1,920 ml @ 80 mls/hr TPN CONT IV Last administered on 09/26/19at 22:28; Start 09/26/19 at 22:00; Stop 09/27/19 at 21:59; Status DC Sodium Chloride 500 ml @ 500 mls/hr 1X ONCE IV Last administered on 09/27/19at 06:39; Start 09/27/19 at 06:45; Stop 09/27/19 at 07:44; Status DC Potassium Acetate 40 meq/Magnesium Sulfate 5 meq/ Multivitamins 10 ml/Chromium/ Copper/Manganese/ Seleni/Zn 1 ml/ Insulin Human Regular 30 unit/ Total Parenteral Nutrition/Amino Acids/Dextrose/ Fat Emulsion Intravenous 1,920 ml @ 80 mls/hr TPN CONT IV Last administered on 09/27/19at 22:03; Start 09/27/19 at 22:00; Stop 09/28/19 at 21:59; Status DC Metoprolol Tartrate (Lopressor Vial) 5 mg PRN Q6HRS PRN IVP HYPERTENSION Last administered on 10/06/19at 10:14; Start 09/28/19 at 09:00 Potassium Acetate 40 meq/Magnesium Sulfate 5 meq/ Multivitamins 10 ml/Chromium/ Copper/Manganese/ Seleni/Zn 1 ml/ Insulin Human Regular 30 unit/ Total Parenteral Nutrition/Amino Acids/Dextrose/ Fat Emulsion Intravenous 1,920 ml @ 80 mls/hr TPN CONT IV Last administered on 09/28/19at 21:26; Start 09/28/19 at 22:00; Stop 09/29/19 at 21:59; Status DC Potassium Acetate 40 meq/Magnesium Sulfate 5 meq/ Multivitamins 10 ml/Chromium/ Copper/Manganese/ Seleni/Zn 1 ml/ Insulin Human Regular 30 unit/ Total Par enteral Nutrition/Amino Acids/Dextrose/ Fat Emulsion Intravenous 1,920 ml @ 80 mls/hr TPN CONT IV Last administered on 09/29/19at 23:23; Start 09/29/19 at 22:00; Stop 09/30/19 at 21:59; Status DC Potassium Acetate 40 meq/Magnesium Sulfate 5 meq/ Multivitamins 10 ml/Chromium/ Copper/Manganese/ Seleni/Zn 1 ml/ Insulin Human Regular 30 unit/ Total Parenteral Nutrition/Amino Acids/Dextrose/ Fat Emulsion Intravenous 1,920 ml @ 80 mls/hr TPN CONT IV Last administered on 09/30/19at 21:35; Start 09/30/19 at 22:00; Stop 10/01/19 at 21:59; Status DC Furosemide (Lasix) 20 mg 1X ONCE IVP Last administered on 10/01/19at 06:26; Start 10/01/19 at 06:15; Stop 10/01/19 at 06:16; Status DC Methylprednisolone Sodium Succinate (SOLU-Medrol 125MG VIAL) 125 mg 1X ONCE IV Last administered on 10/01/19at 06:26; Start 10/01/19 at 06:15; Stop 10/01/19 at 06:16; Status DC Albuterol/ Ipratropium (Duoneb) 3 ml Q4HRS NEB Last administered on 10/13/19at 04:00; Start 10/01/19 at 08:00 Fentanyl Citrate 30 ml @ 0 mls/hr CONT PRN IV SEE PROTOCOL Last administered on 10/12/19at 21:02; Start 10/01/19 at 06:00 Propofol 100 ml @ 0 mls/hr CONT PRN IV SEE PROTOCOL Last administered on 10/08/19at 23:50; Start 10/01/19 at 06:00 Fentanyl Citrate (Fentanyl 2ml Vial) 25 mcg PRN Q1HR PRN IV SEE COMMENTS; Start 10/01/19 at 06:00 Fentanyl Citrate (Fentanyl 2ml Vial) 50 mcg PRN Q1HR PRN IV SEE COMMENTS; Start 10/01/19 at 06:00 Chlorhexidine Gluconate (Peridex) 15 ml BID MM ; Start 10/01/19 at 09:00; Stop 10/01/19 at 07:58; Status DC Potassium Acetate 40 meq/Magnesium Sulfate 5 meq/ Multivitamins 10 ml/Chromium/ Copper/Manganese/ Seleni/Zn 1 ml/ Insulin Human Regular 30 unit/ Total Parenteral Nutrition/Amino Acids/Dextrose/ Fat Emulsion Intravenous 1,920 ml @ 80 mls/hr TPN CONT IV Last administered on 10/01/19at 21:19; Start 10/01/19 at 22:00; Stop 10/02/19 at 21:59; Status DC Acetylcysteine (Mucomyst 20% Resp Treatment) 600 mg BID NEB Last administered on 10/07/19at 09:33; Start 10/01/19 at 21:00; Stop 10/07/19 at 10:39; Status DC Magnesium Sulfate 100 ml @ 25 mls/hr 1X ONCE IV Last administered on 10/01/19at 15:48; Start 10/01/19 at 15:45; Stop 10/01/19 at 19:44; Status DC Potassium Acetate 40 meq/Magnesium Sulfate 5 meq/ Multivitamins 10 ml/Chromium/ Copper/Manganese/ Seleni/Zn 1 ml/ Insulin Human Regular 30 unit/ Total Parenteral Nutrition/Amino Acids/Dextrose/ Fat Emulsion Intravenous 1,920 ml @ 80 mls/hr TPN CONT IV Last administered on 10/02/19at 21:35; Start 10/02/19 at 22:00; Stop 10/03/19 at 21:59; Status DC Potassium Chloride/Water 100 ml @ 100 mls/hr Q1H IV Last administered on 10/03/19at 08:31; Start 10/03/19 at 07:00; Stop 10/03/19 at 08:59; Status DC Potassium Acetate 40 meq/Magnesium Sulfate 5 meq/ Multivitamins 10 ml/Chromium/ Copper/Manganese/ Seleni/Zn 1 ml/ Insulin Human Regular 30 unit/ Total Parenteral Nutrition/Amino Acids/Dextrose/ Fat Emulsion Intravenous 1,920 ml @ 80 mls/hr TPN CONT IV Last administered on 10/03/19at 21:54; Start 10/03/19 at 22:00; Stop 10/04/19 at 19:34; Status DC Lidocaine HCl (Buffered Lidocaine 1%) 3 ml STK-MED ONCE .ROUTE ; Start 10/03/19 at 12:14; Stop 10/03/19 at 12:14; Status DC Lidocaine HCl (Buffered Lidocaine 1%) 3 ml 1X ONCE IJ Last administered on 10/03/19at 13:11; Start 10/03/19 at 13:00; Stop 10/03/19 at 13:01; Status DC Magnesium Sulfate 50 ml @ 25 mls/hr 1X ONCE IV ; Start 10/04/19 at 08:15; Stop 10/04/19 at 10:14; Status DC Potassium Acetate 40 meq/Magnesium Sulfate 10 meq/ Multivitamins 10 ml/Chromium/ Copper/Manganese/ Seleni/Zn 1 ml/ Insulin Human Regular 20 unit/ Total Pa renteral Nutrition/Amino Acids/Dextrose/ Fat Emulsion Intravenous 1,920 ml @ 80 mls/hr TPN CONT IV Last administered on 10/04/19at 21:32; Start 10/04/19 at 22:00; Stop 10/05/19 at 21:59; Status DC Potassium Chloride/Water 100 ml @ 100 mls/hr Q1H IV Last administered on 10/05/19at 09:12; Start 10/05/19 at 08:00; Stop 10/05/19 at 09:59; Status DC Alteplase, Recombinant (Cathflo For Central Catheter Clearance) 4 mg 1X ONCE INT CAT ; Start 10/05/19 at 09:15; Stop 10/05/19 at 09:16; Status UNV Alteplase, Recombinant (Cathflo For Central Catheter Clearance) 4 mg 1X ONCE INT CAT ; Start 10/05/19 at 09:15; Stop 10/05/19 at 09:16; Status UNV Alteplase, Recombinant (Cathflo For Central Catheter Clearance) 4 mg 1X ONCE INT CAT ; Start 10/05/19 at 09:15; Stop 10/05/19 at 09:16; Status UNV Alteplase, Recombinant 4 mg/ Sodium Chloride 20 ml @ 20 mls/hr 1X ONCE IV Last administered on 10/05/19at 10:10; Start 10/05/19 at 10:00; Stop 10/05/19 at 10:59; Status DC Alteplase, Recombinant 4 mg/ Sodium Chloride 20 ml @ 20 mls/hr 1X ONCE IV Last administered on 10/05/19at 10:09; Start 10/05/19 at 10:00; Stop 10/05/19 at 10:59; Status DC Alteplase, Recombinant 4 mg/ Sodium Chloride 20 ml @ 20 mls/hr 1X ONCE IV Last administered on 10/05/19at 10:09; Start 10/05/19 at 10:00; Stop 10/05/19 at 10:59; Status DC Potassium Acetate 60 meq/Magnesium Sulfate 10 meq/ Multivitamins 10 ml/Chromium/ Copper/Manganese/ Seleni/Zn 1 ml/ Insulin Human Regular 20 unit/ Total Parenteral Nutrition/Amino Acids/Dextrose/ Fat Emulsion Intravenous 1,920 ml @ 80 mls/hr TPN CONT IV Last administered on 10/05/19at 21:55; Start 10/05/19 at 22:00; Stop 10/06/19 at 21:59; Status DC Albumin Human 500 ml @ 125 mls/hr 1X ONCE IV Last administered on 10/06/19at 12:01; Start 10/06/19 at 11:15; Stop 10/06/19 at 15:14; Status DC Sodium Chloride 500 ml @ 500 mls/hr 1X ONCE IV Last administered on 10/06/19at 13:50; Start 10/06/19 at 11:15; Stop 10/06/19 at 12:14; Status DC Potassium Acetate 60 meq/Magnesium Sulfate 14 meq/ Multivitamins 10 ml/Chromium/ Copper/Manganese/ Seleni/Zn 1 ml/ Insulin Human Regular 20 unit/ Total Parenteral Nutrition/Amino Acids/Dextrose/ Fat Emulsion Intravenous 1,920 ml @ 80 mls/hr TPN CONT IV Last administered on 10/06/19at 22:26; Start 10/06/19 at 22:00; Stop 10/07/19 at 21:59; Status DC Ciprofloxacin/ Dextrose 200 ml @ 200 mls/hr Q12HR IV Last administered on 10/13/19at 08:27; Start 10/06/19 at 21:00; Stop 10/13/19 at 08:56; Status DC Albumin Human 250 ml @ 62.5 mls/hr 1X ONCE IV Last administered on 10/07/19at 11:09; Start 10/07/19 at 11:00; Stop 10/07/19 at 14:59; Status DC Furosemide (Lasix) 20 mg 1X ONCE IVP Last administered on 10/07/19at 14:52; Start 10/07/19 at 10:45; Stop 10/07/19 at 10:49; Status DC Potassium Acetate 60 meq/Magnesium Sulfate 14 meq/ Multivitamins 10 ml/Chromium/ Copper/Manganese/ Seleni/Zn 1 ml/ Insulin Human Regular 15 unit/ Total Parenteral Nutrition/Amino Acids/Dextrose/ Fat Emulsion Intravenous 1,920 ml @ 80 mls/hr TPN CONT IV Last administered on 10/07/19at 22:08; Start 10/07/19 at 22:00; Stop 10/08/19 at 21:59; Status DC Potassium Acetate 60 meq/Magnesium Sulfate 14 meq/ Multivitamins 10 ml/Chromium/ Copper/Manganese/ Seleni/Zn 1 ml/ Insulin Human Regular 15 unit/ Total Parenteral Nutrition/Amino Acids/Dextrose/ Fat Emulsion Intravenous 1,920 ml @ 80 mls/hr TPN CONT IV Last administered on 10/08/19at 22:12; Start 10/08/19 at 22:00; Stop 10/09/19 at 21:59; Status DC Potassium Acetate 60 meq/Magnesium Sulfate 14 meq/ Multivitamins 10 ml/Chromium/ Copper/Manganese/ Seleni/Zn 1 ml/ Insulin Human Regular 15 unit/ Total Parenteral Nutrition/Amino Acids/Dextrose/ Fat Emulsion Intravenous 1,920 ml @ 80 mls/hr TPN CONT IV Last administered on 10/09/19at 22:22; Start 10/09/19 at 22:00; Stop 10/10/19 at 21:59; Status DC Furosemide (Lasix) 20 mg 1X ONCE IVP Last administered on 10/10/19at 11:07; Start 10/10/19 at 10:30; Stop 10/10/19 at 10:34; Status DC Potassium Acetate 60 meq/Magnesium Sulfate 14 meq/ Multivitamins 10 ml/Chromium/ Copper/Manganese/ Seleni/Zn 1 ml/ Insulin Human Regular 15 unit/ Sodium Chloride 20 meq/Total Parenteral Nutrition/Amino Acids/Dextrose/ Fat Emulsion Intravenous 1,920 ml @ 80 mls/hr TPN CONT IV Last administered on 10/10/19at 21:54; Start 10/10/19 at 22:00; Stop 10/11/19 at 21:59; Status DC Potassium Acetate 30 meq/Magnesium Sulfate 14 meq/ Multivitamins 10 ml/Chromium/ Copper/Manganese/ Seleni/Zn 1 ml/ Insulin Human Regular 15 unit/ Sodium Chloride 20 meq/Potassium Chloride 30 meq/ Total Parenteral Nutrition/Amino Acids/Dextrose/ Fat Emulsion Intravenous 1,920 ml @ 80 mls/hr TPN CONT IV Last administered on 10/11/19at 21:46; Start 10/11/19 at 22:00; Stop 10/12/19 at 21:59; Status DC Sodium Chloride 80 meq/Potassium Chloride 30 meq/ Potassium Acetate 30 meq/Magnesium Sulfate 14 meq/ Multivitamins 10 ml/Chromium/ Copper/Manganese/ Seleni/Zn 1 ml/ Insulin Human Regular 15 unit/ Total Parenteral Nutrition/Amino Acids/Dextrose/ Fat Emulsion Intravenous 1,920 ml @ 80 mls/hr TPN CONT IV Last administered on 10/12/19at 22:33; Start 10/12/19 at 22:00; Stop 10/13/19 at 21:59 Furosemide (Lasix) 40 mg 1X ONCE IVP Last administered on 10/12/19at 16:27; Start 10/12/19 at 15:30; Stop 10/12/19 at 15:33; Status DC Albumin Human 250 ml @ 62.5 mls/hr 1X ONCE IV Last administered on 10/12/19at 16:27; Start 10/12/19 at 15:30; Stop 10/12/19 at 19:29; Status DC Active Scripts Active Reported Bisoprolol Fumarate 5 Mg Tablet 10 Mg PO DAILY Vitals/I & O Vital Sign - Last 24 Hours 10/12/19 10/12/19 10/12/19 10/12/19 10:00 12:00 12:13 15:00 Temp 99.0 99.0 Pulse 120 123 126 Resp 27 B/P (MAP) 123/72 (89) 120/75 (90) 125/80 (95) Pulse Ox 98 98 97 98 O2 Delivery Tracheal Collar Tracheal Collar Tracheal Collar Tracheal Collar O2 Flow Rate 8.0 10/12/19 10/12/19 10/12/19 10/12/19 16:06 18:00 19:00 19:59 Pulse 120 122 Resp 22 B/P (MAP) 118/69 (85) 110/69 (83) Pulse Ox 98 99 99 98 O2 Delivery Tracheal Collar Tracheal Collar Tracheal Collar Tracheal Collar O2 Flow Rate 8.0 8.0 10/12/19 10/12/19 10/12/19 10/12/19 20:00 20:00 21:02 21:32 Temp 98.2 98.2 Pulse 121 Resp B/P (MAP) 115/66 (82) Pulse Ox 98 98 98 O2 Delivery Trach Collar Tracheal Collar O2 Flow Rate 8.0 8.0 10/13/19 10/13/19 10/13/19 10/13/19 00:00 00:20 04:00 04:34 Temp 98.8 97.8 98.8 97.8 Pulse 107 107 Resp 15 18 B/P (MAP) 100/58 (72) 100/58 (72) Pulse Ox 98 96 98 97 O2 Delivery Tracheal Collar Tracheal Collar Tracheal Collar Tracheal Collar O2 Flow Rate 8.0 8.0 8.0 10/13/19 10/13/19 10/13/19 08:00 08:00 08:19 Temp 98.8 98.8 Pulse 121 Resp 18 B/P (MAP) 105/59 (74) Pulse Ox 96 97 O2 Delivery Trach Collar Tracheal Collar Tracheal Collar O2 Flow Rate 6.0 6.0 8.0 Intake and Output 10/12/19 10/12/19 10/13/19 15:00 23:00 07:00 Intake Total 200 ml 1612 ml 912.9 ml Output Total 700 ml 1635 ml 795 ml Balance -500 ml -23 ml 117.9 ml Hemodynamically unstable?: No Is patient in severe pain?: No Is NPO status required?: No CARIN FERNANDEZ MD Oct 13, 2019 09:30
--- NOTE | 2019-10-13 10:26 | PDOC ---
PULMONARY PROGRESS NOTES Subjective Patient sitting up in a chair off vent ,ct drainage 200 cc/24 hrs Patient intubated on 07/10 , s/p trach 07/24, transferred back to ICU 09/22 for syncope with collapse developed anemia, blood drainage from RLQ abdomen drain site, and surrounding firmness / developed septic shock 09/24 from abdomen source, required levo 09/24 s/p 3 new drains 09/24 with brown color drainage s/p left chest tube, draining Vitals Vital Signs Date Time Temp Pulse Resp B/P (MAP) Pulse Ox O2 Delivery O2 Flow Rate FiO2 10/13/19 08:19 97 Tracheal Collar 8.0 10/13/19 08:00 98.8 121 18 105/59 (74) 98.8 Comments awake,no soa General: Alert, No acute distress HEENT: Other (nc at perrl nose clear neck trach site ok no lab no thyromegaly) Lungs: Other (diminshed in bases, Rhonci in LLL) Cardiovascular: S1, S2 Abdomen: Soft, Non-tender, Other (bleeding from Sx. site RLQ and firmness) Extremities: Other (+1 BLE edema) Skin: Warm, Dry Labs Laboratory Tests Test 10/11/19 12:22 10/11/19 17:01 10/12/19 00:36 10/12/19 06:15 Glucose (Fingerstick) 156 mg/dL (70-99) 157 mg/dL (70-99) 141 mg/dL (70-99) White Blood Count 13.2 x10^3/uL (4.0-11.0) Red Blood Count 3.41 x10^6/uL (3.50-5.40) Hemoglobin 9.4 g/dL (12.0-15.5) Hematocrit 29.0 % (36.0-47.0) Mean Corpuscular Volume 85 fL (79-100) Mean Corpuscular Hemoglobin 28 pg (25-35) Mean Corpuscular Hemoglobin Concent 33 g/dL (31-37) Red Cell Distribution Width 17.5 % (11.5-14.5) Platelet Count 449 x10^3/uL (140-400) Neutrophils (%) (Auto) 81 % (31-73) Lymphocytes (%) (Auto) 11 % (24-48) Monocytes (%) (Auto) 6 % (0-9) Eosinophils (%) (Auto) 1 % (0-3) Basophils (%) (Auto) 0 % (0-3) Neutrophils # (Auto) 10.8 x10^3/uL (1.8-7.7) Lymphocytes # (Auto) 1.5 x10^3/uL (1.0-4.8) Monocytes # (Auto) 0.8 x10^3/uL (0.0-1.1) Eosinophils # (Auto) 0.1 x10^3/uL (0.0-0.7) Basophils # (Auto) 0.0 x10^3/uL (0.0-0.2) Prothrombin Time 14.0 SEC (11.7-14.0) Prothromb Time International Ratio 1.1 (0.8-1.1) Sodium Level 135 mmol/L (136-145) Potassium Level 4.3 mmol/L (3.5-5.1) Chloride Level 99 mmol/L (98-107) Carbon Dioxide Level 34 mmol/L (21-32) Anion Gap 2 (6-14) Blood Urea Nitrogen 13 mg/dL (7-20) Creatinine 0.7 mg/dL (0.6-1.0) Estimated GFR (Cockcroft-Gault) 88.9 BUN/Creatinine Ratio 19 (6-20) Glucose Level 130 mg/dL (70-99) Calcium Level 10.4 mg/dL (8.5-10.1) Phosphorus Level 4.2 mg/dL (2.6-4.7) Magnesium Level 2.1 mg/dL (1.8-2.4) Total Bilirubin 0.4 mg/dL (0.2-1.0) Aspartate Amino Transf (AST/SGOT) 23 U/L (15-37) Alanine Aminotransferase (ALT/SGPT) 20 U/L (14-59) Alkaline Phosphatase 255 U/L (46-116) Total Protein 4.8 g/dL (6.4-8.2) Albumin 1.1 g/dL (3.4-5.0) Albumin/Globulin Ratio 0.3 (1.0-1.7) Test 10/12/19 06:20 10/12/19 18:04 10/13/19 01:01 10/13/19 06:16 Glucose (Fingerstick) 133 mg/dL (70-99) 172 mg/dL (70-99) 134 mg/dL (70-99) 123 mg/dL (70-99) Laboratory Tests Test 10/12/19 18:04 10/13/19 01:01 10/13/19 06:16 Glucose (Fingerstick) 172 mg/dL (70-99) 134 mg/dL (70-99) 123 mg/dL (70-99) Medications Active Scripts Medications Dose Route/Sig Max Daily Dose Days Date Category Bisoprolol Fumarate 5 Mg Tablet 10 Mg PO DAILY 07/04/19 Reported Comments CXR 10/09 poor insp effort/ increase effusion ct abdomen /pelvis 09/23 1. Removal of the percutaneous pigtail drainage catheters since the prior exam. Sequela of pancreatitis with extensive pseudocysts again demonstrated, the right-sided collections are slightly larger since the prior exam, the left-sided collections are stable. See above. 2. Moderate to large left pleural effusion with atelectasis and collapse of most of the left lower lobe, stable. Small right pleural effusion is stable. 3. Gallstone. ct chest 10/02 reviewed GRAM NEG COCCOBACILLI:MANY SQUAMOUS EPI CELL:RARE PMN (WBCs):FEW Unless otherwise specified, Testing Performed by: [address] [address] For Inquires, the Physician may contact the Microbiology department at [phone] RESPIRATORY CULTURE Final Final MANY GRAM NEGATIVE RODS on 10/03/19 at 1107 FINAL ID= [[email or web address]] MICRO CHARGES PSEUDOMONAS AERUGINOSA ANTIMICROBIAL SUSCEPTIBILITY Final Comment NEG ALEXANDRA 56 PSEUDOMONAS AERUGINOSA ANTIBIOTIC RESULT INTERPRETATION AMIKACIN <=16 S AZTREONAM <=4 S CEFTAZIDIME <=1 S CIPROFLOXACIN <=0.25 S CEFEPIME <=2 S CEFTAZIDIME/AVIBACTAM <=4 S GENTAMICIN <=2 S LEVOFLOXACIN <=0.5 S Impression . IMPRESSION: 1. Acute hypoxemic respiratory failure secondary to ARDS status post trach, developed anemia 09/24, blood drainage from RLQ abdomen drain site, and surrounding firmness / developed septic shock / from abdomen source, required levo 6/7 s/p 3 new drains 09/24 with brown color drainage, on/off vent , on TS now 2. Gallstone pancreatitis, now with ongoing bleeding from prior drain. Anemic. s/p Tx multiple units over several days 3. septic shock/sepsis, recurrent 09/24, source abdomen. , off levo now, 4. Acute kidney injury-, Off HD--renal function decling. suspect JUANA on CKD due to hypotension , improved now 5. Acute gallstone pancreatitis. 6. Hypoalbuminemia. 7. Moderate persistent effusions, s/p left thora 08/29, reaccumulation of left effusion. O2 requirement not changed. 8. Fever- ,hypotension. suspect recurrent sepsis/ likely pancreatic source. Per ID, per surgery-- 9. Chronic anemia-- ongoing / s/p PRBC 10. Covid 19 testing negative 11. Moderate to large ascites-S/P paracentisis 12.S/P paracentisis with 4 liters removed on 08/03/19 13. S/P IR drain placement on 08/26/2019, removal, re inserted 09/24 14. Depression/Anxiety 15. Increase effusion, ? loculated/ s/p chest tube.. drainage slowing down. 200 cc /24 hr Plan . Tentatively scheduled for surgery next week 1. TS as tolerated titrate fio2 to keep sat 94%, off vent 2. Follow all cultures/ PSA from pelvic drains. Abx per ID/ thoracentesis result transudate, await c/s, 3. Follow surgery recs-- Acute pancreatitis with persistent necrosis ---- 08/14 status post KAYLIN drain placement + C paropsilosis; 08/23 + yeast & high amylase; s/p additional drains on 08/25, removal of drains and now increase pseudocyst and increase fluid collection. likely infected fluid/ sepsis. on BS abx.follow surgery rec, planning surgical intervention next few weeks 4. Follow ID recs for ABX---- 5. Follow nephrology recs ----- 6. Continue TPN 7. monitor HGB, 4 units since 09/23--monitor HGB transfuse if less than 8.5 8 s/p thoracentesis, 08/29, 3 litres removed, s/p ct on 10/02. ct drainage, 180 cc over the past 24 hrs, suction -40, am cxr, flushed chest tube 10/09 9. Pt remains critically ill from severe necrotic pancreatis. Even with surgery prognosis grim. Surgery informed family. 10. lasix/albumin prn 11. sputum gram neg cocobacilli. anna sensitive DVT/GI PPX: protonix--- PT/OT D/W RN, RT HARMEET BEE MD Oct 13, 2019 10:26
[2019-10-13] MEDS: TPN PER PHARMACY MC PRN (10:29)
--- NOTE | 2019-10-13 10:29 | PDOC ---
SURGICAL PROGRESS NOTE Subjective coughing awake in bed Vital Signs Vital Signs Date Time Temp Pulse Resp B/P (MAP) Pulse Ox O2 Delivery O2 Flow Rate FiO2 10/13/19 08:19 97 Tracheal Collar 8.0 10/13/19 08:00 98.8 121 18 105/59 (74) 98.8 I&O Intake and Output 10/13/19 07:00 Intake Total 2724.9 ml Output Total 3130 ml Balance -405.1 ml IV Total 2724.9 ml Output Urine Total 2950 ml Chest Tube Drainage Total 120 ml Drainage Total 60 ml PATIENT HAS A ROSARIO: Yes General: Cooperative, No acute distress HEENT: Other (trach) Abdomen: Soft, Other (drains in place) Labs Laboratory Tests Test 10/11/19 12:22 10/11/19 17:01 10/12/19 00:36 10/12/19 06:15 Glucose (Fingerstick) 156 mg/dL (70-99) 157 mg/dL (70-99) 141 mg/dL (70-99) White Blood Count 13.2 x10^3/uL (4.0-11.0) Red Blood Count 3.41 x10^6/uL (3.50-5.40) Hemoglobin 9.4 g/dL (12.0-15.5) Hematocrit 29.0 % (36.0-47.0) Mean Corpuscular Volume 85 fL (79-100) Mean Corpuscular Hemoglobin 28 pg (25-35) Mean Corpuscular Hemoglobin Concent 33 g/dL (31-37) Red Cell Distribution Width 17.5 % (11.5-14.5) Platelet Count 449 x10^3/uL (140-400) Neutrophils (%) (Auto) 81 % (31-73) Lymphocytes (%) (Auto) 11 % (24-48) Monocytes (%) (Auto) 6 % (0-9) Eosinophils (%) (Auto) 1 % (0-3) Basophils (%) (Auto) 0 % (0-3) Neutrophils # (Auto) 10.8 x10^3/uL (1.8-7.7) Lymphocytes # (Auto) 1.5 x10^3/uL (1.0-4.8) Monocytes # (Auto) 0.8 x10^3/uL (0.0-1.1) Eosinophils # (Auto) 0.1 x10^3/uL (0.0-0.7) Basophils # (Auto) 0.0 x10^3/uL (0.0-0.2) Prothrombin Time 14.0 SEC (11.7-14.0) Prothromb Time International Ratio 1.1 (0.8-1.1) Sodium Level 135 mmol/L (136-145) Potassium Level 4.3 mmol/L (3.5-5.1) Chloride Level 99 mmol/L (98-107) Carbon Dioxide Level 34 mmol/L (21-32) Anion Gap 2 (6-14) Blood Urea Nitrogen 13 mg/dL (7-20) Creatinine 0.7 mg/dL (0.6-1.0) Estimated GFR (Cockcroft-Gault) 88.9 BUN/Creatinine Ratio 19 (6-20) Glucose Level 130 mg/dL (70-99) Calcium Level 10.4 mg/dL (8.5-10.1) Phosphorus Level 4.2 mg/dL (2.6-4.7) Magnesium Level 2.1 mg/dL (1.8-2.4) Total Bilirubin 0.4 mg/dL (0.2-1.0) Aspartate Amino Transf (AST/SGOT) 23 U/L (15-37) Alanine Aminotransferase (ALT/SGPT) 20 U/L (14-59) Alkaline Phosphatase 255 U/L (46-116) Total Protein 4.8 g/dL (6.4-8.2) Albumin 1.1 g/dL (3.4-5.0) Albumin/Globulin Ratio 0.3 (1.0-1.7) Test 10/12/19 06:20 10/12/19 18:04 10/13/19 01:01 10/13/19 06:16 Glucose (Fingerstick) 133 mg/dL (70-99) 172 mg/dL (70-99) 134 mg/dL (70-99) 123 mg/dL (70-99) Laboratory Tests Test 10/12/19 18:04 10/13/19 01:01 10/13/19 06:16 Glucose (Fingerstick) 172 mg/dL (70-99) 134 mg/dL (70-99) 123 mg/dL (70-99) Problem List Problems Medical Problems: (1) Acute pancreatitis Status: Acute (2) Cholelithiasis Status: Acute Assessment/Plan supportive care, surgery next week Justicifation of Admission Dx: Justifications for Admission: Justification of Admission Dx: Yes 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 FRENCH DRAWER Oct 13, 2019 10:29
--- NOTE | 2019-10-13 10:30 | NUR ---
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, 8 inches Weight: 87.5 kg Current diet: NPO LABS: Sodium: 135 Potassium: 4.3 Chloride: 99 Calcium: 10.4 Corrected Calcium: 12.72 Magnesium: 2.1 CO2: 34 SCr: 0.7 Glucose: 130-157 Albumin: 1.1 AST: 23 ALT: 20 TPN FORMULA: TPN TYPE: Central Continuous AMINO ACIDS: 80 gm DEXTROSE: 250 gm LIPIDS: 20 gm SODIUM CHLORIDE: 80 mEq POTASSIUM CHLORIDE: 30 mEq POTASSIUM ACETATE: 30 mEq MAGNESIUM: 14 mEq INSULIN: 15 units MULTIPLE VITAMIN: 10 ml TRACE ELEMENTS: 1 ml(s) TPN PLAN: Continue same; labs in am R: Continue TPN Will monitor electrolytes, glucose, and tolerance to TPN. Raeann Mcdonnell RPH, 10/13/19 1038
--- NOTE | 2019-10-13 11:39 | PDOC ---
Objective: Objective: D/w nurse - stable, some drainage from CT. Vital Signs: Vital Signs Date Time Temp Pulse Resp B/P (MAP) Pulse Ox O2 Delivery O2 Flow Rate FiO2 10/13/19 08:19 97 Tracheal Collar 8.0 10/13/19 08:00 98.8 121 18 105/59 (74) 98.8 Labs: Laboratory Tests Test 10/12/19 18:04 10/13/19 01:01 10/13/19 06:16 Glucose (Fingerstick) 172 mg/dL 134 mg/dL 123 mg/dL Imaging: Abd US 10/12 IMPRESSION: 1. Cholelithiasis. Mild thickened appearance of the gallbladder wall. 2. Mild right hydronephrosis. 3. Fluid collection identified anterior to the pancreas. 4. Hepatic steatosis. PE: GEN: NAD - sitting on edge of bed w/ therapy NEURO/PSYCH: A & O 3 A/P: Gallstone pancreatitis -- Tentative plans for surgery next week. Justicifation of Admission Dx: Justifications for Admission: Justification of Admission Dx: Yes CYNDEE FALCON Oct 13, 2019 11:39
[2019-10-13 12:00] VITALS: BP 132/71
--- NOTE | 2019-10-13 13:36 | NUR ---
SS following up with discharge planning. SS reviewed pt chart and discussed with pt RN. IV antibiotics stopped. Pt has tentative surgery scheduled for next Thursday. Pt remains on TPN. Pt has drains x3 and chest tube. Pt on trach collar. SS will continue to follow for discharge planning.
--- NOTE | 2019-10-13 13:37 | RAD ---
CHEST AP ONLY History: Reason: hypoxia, effusion,104 / Spl. Instructions: / History: Comparison: October 10, 2019 Findings: Moderate right pleural effusion with increased adjacent opacity. Linear appearance related to the minor fissure. Small left pleural effusion. Patchy bilateral mid and basilar opacities. Left apical pleural drain, unchanged. Stable left PICC. Tracheotomy tube and enteric tube are unchanged. Unchanged heart size. Impression: 1. Moderate right pleural effusion with increased adjacent opacities. 2. Small left pleural effusion with adjacent opacity, unchanged. Stable left pigtail pleural drain. Electronically signed by: Sukhdev Sadler DO (10/13/2019 1:34 PM) [id number]
[2019-10-13 16:00] VITALS: BP 105/64
[2019-10-13 20:00] VITALS: BP 111/64
[2019-10-13] MEDS ORDERED: [UNRECOGNIZED DRUG - OTHER] IV SCH ×10 (22:00)
[2019-10-13] MEDS ORDERED: AMINO ACID IV SCH ×10 (22:00)
[2019-10-13] MEDS ORDERED: DEXTROSE 70% IV SCH ×10 (22:00)
[2019-10-13] MEDS ORDERED: TOTAL PARENTERAL NUTRITION IV SCH ×10 (22:00)
[2019-10-14] VITALS (7 sets, daily range): BP systolic 91–123; BP diastolic 57–91
[2019-10-14] MEDS: IPRATRPIUM/ALBUTEROL 0.5/2.5MG 3 ML NEBU. NEB SCH ×7 (03:54→23:47)
[2019-10-14] MEDS: INSULIN LISPRO 300 UNITS/3 ML VIAL. SQ SCH ×4 (05:14→18:00)
[2019-10-14 05:30] LABS: BASO % 0 % (0-3); EOS # 0.2 x10^3/uL (0.0-0.7); EOS % 2 % (0-3); HEMATOCRIT 25.5 % (36.0-47.0); HEMOGLOBIN 8.6 g/dL (12.0-15.5); LYMPH # 1.3 x10^3/uL (1.0-4.8); LYMPH % 12 % (24-48); MEAN CORPUSCULAR HEMOGLOBIN 29 pg (25-35); MEAN CORPUSCULAR HGB CONC 34 g/dL (31-37); MEAN CORPUSCULAR VOLUME 85 fL (79-100); MONO # 0.8 x10^3/uL (0.0-1.1); MONO % 7 % (0-9); NEUT # 8.5 x10^3/uL (1.8-7.7); NEUT % 78 % (31-73); PLATELET COUNT 380 x10^3/uL (140-400); RED BLOOD COUNT 3.01 x10^6/uL (3.50-5.40); RED CELL DISTRIBUTION WIDTH 18.1 % (11.5-14.5); WHITE BLOOD COUNT 10.9 x10^3/uL (4.0-11.0)
[2019-10-14 05:49] LABS: MAGNESIUM 2.1 mg/dL (1.8-2.4); PHOSPHORUS 4.4 mg/dL (2.6-4.7)
[2019-10-14 05:51] LABS: ALBUMIN 1.1 g/dL (3.4-5.0); ALBUMIN/GLOBULIN RATIO 0.3 (1.0-1.7); CALCIUM 10.4 mg/dL (8.5-10.1); CREATININE 0.6 mg/dL (0.6-1.0); GFR 106.3; POTASSIUM 4.1 mmol/L (3.5-5.1); TOTAL BILIRUBIN 0.5 mg/dL (0.2-1.0); TOTAL PROTEIN 4.6 g/dL (6.4-8.2)
[2019-10-14] MEDS: PANTOPRAZOLE IV PUSH 40 MG VIAL. IVP SCH (07:30)
--- NOTE | 2019-10-14 07:40 | PDOC ---
Infectious Disease Note Subjective Subjective Patient is awake says she is feeling better ROS ROS No nausea vomiting diarrhea Vital Sign Vital Signs Vital Signs Date Time Temp Pulse Resp B/P (MAP) Pulse Ox O2 Delivery O2 Flow Rate FiO2 10/14/19 04:00 99.1 112 28 91/57 (68) 100 Tracheal Collar 6.0 99.1 Physical Exam PHYSICAL EXAM GENERAL: Propped up in bed, resting quietly watching tv HEENT: 8 liters nc NECK: Tracheostomy LUNGS: Diminished aeration bases, no accessory muscle use - CT on left with clear fluid HEART: S1, S2,regular ABDOMEN: Mild distention, bowel sounds present, soft, grimaces to palpation, drains x 3 : Lind ( 09/24) EXTREMITIES: + edema BLE SKIN: no signs of gen rash LUE-PICC without signs of complications Labs Lab Laboratory Tests Test 10/13/19 12:50 10/13/19 17:39 10/14/19 00:23 10/14/19 05:12 Glucose (Fingerstick) 150 mg/dL (70-99) 139 mg/dL (70-99) 138 mg/dL (70-99) 125 mg/dL (70-99) Test 10/14/19 05:15 White Blood Count 10.9 x10^3/uL (4.0-11.0) Red Blood Count 3.01 x10^6/uL (3.50-5.40) Hemoglobin 8.6 g/dL (12.0-15.5) Hematocrit 25.5 % (36.0-47.0) Mean Corpuscular Volume 85 fL (79-100) Mean Corpuscular Hemoglobin 29 pg (25-35) Mean Corpuscular Hemoglobin Concent 34 g/dL (31-37) Red Cell Distribution Width 18.1 % (11.5-14.5) Platelet Count 380 x10^3/uL (140-400) Neutrophils (%) (Auto) 78 % (31-73) Lymphocytes (%) (Auto) 12 % (24-48) Monocytes (%) (Auto) 7 % (0-9) Eosinophils (%) (Auto) 2 % (0-3) Basophils (%) (Auto) 0 % (0-3) Neutrophils # (Auto) 8.5 x10^3/uL (1.8-7.7) Lymphocytes # (Auto) 1.3 x10^3/uL (1.0-4.8) Monocytes # (Auto) 0.8 x10^3/uL (0.0-1.1) Eosinophils # (Auto) 0.2 x10^3/uL (0.0-0.7) Basophils # (Auto) 0.0 x10^3/uL (0.0-0.2) Sodium Level 137 mmol/L (136-145) Potassium Level 4.1 mmol/L (3.5-5.1) Chloride Level 101 mmol/L (98-107) Carbon Dioxide Level 36 mmol/L (21-32) Anion Gap 0 (6-14) Blood Urea Nitrogen 15 mg/dL (7-20) Creatinine 0.6 mg/dL (0.6-1.0) Estimated GFR (Cockcroft-Gault) 106.3 BUN/Creatinine Ratio 25 (6-20) Glucose Level 126 mg/dL (70-99) Calcium Level 10.4 mg/dL (8.5-10.1) Phosphorus Level 4.4 mg/dL (2.6-4.7) Magnesium Level 2.1 mg/dL (1.8-2.4) Total Bilirubin 0.5 mg/dL (0.2-1.0) Aspartate Amino Transf (AST/SGOT) 19 U/L (15-37) Alanine Aminotransferase (ALT/SGPT) 14 U/L (14-59) Alkaline Phosphatase 161 U/L (46-116) Total Protein 4.6 g/dL (6.4-8.2) Albumin 1.1 g/dL (3.4-5.0) Albumin/Globulin Ratio 0.3 (1.0-1.7) Micro Objective Assessment Fever intermittent could be from underlying pancreatitis vs aspiration ? Ileus with vomiting Abd distention - U/S and CT reviewed s/p 0.4 L of opaque, debris-containing ascites was removed 08/23 Acute pancreatitis with persistent necrosis - 08/14 status post KAYLIN drain placement + C paropsilosis; 08/23 + yeast & high amylase; s/p additional drains on 08/25 Anemia - S/p PRBCs Cholelithiasis with thickening of the gallbladder wall. Leucocytosis improved JUANA, hyperkalemia, Metabolic acidosis off dialysis Acute hypoxic resp failure ,bilateral pleural effusion and atelectasis hypocalcemia Prediabetes HTN s/p trach Plan Plan of Care , observe off antibiotics Monitor labs/temp General surgery following Monitor drain output Maintain aspiration precaution Supportive care Contact islation for CRE/MDRO KIMMY JONES MD Oct 14, 2019 07:40
--- NOTE | 2019-10-14 08:46 | PDOC ---
SURGICAL PROGRESS NOTE Subjective coughing Vital Signs Vital Signs Date Time Temp Pulse Resp B/P (MAP) Pulse Ox O2 Delivery O2 Flow Rate FiO2 10/14/19 04:00 99.1 112 28 91/57 (68) 100 Tracheal Collar 6.0 99.1 I&O Intake and Output 10/14/19 06:59 Intake Total 2217.8 ml Output Total 1575 ml Balance 642.8 ml IV Total 2217.8 ml Output Urine Total 1360 ml Gastric Drainage Total 100 ml Chest Tube Drainage Total 0 ml Drainage Total 115 ml General: Alert, Cooperative HEENT: Other (trach) Abdomen: Soft, Other (drains in place) Labs Laboratory Tests Test 10/12/19 18:04 10/13/19 01:01 10/13/19 06:16 10/13/19 12:50 Glucose (Fingerstick) 172 mg/dL (70-99) 134 mg/dL (70-99) 123 mg/dL (70-99) 150 mg/dL (70-99) Test 10/13/19 17:39 10/14/19 00:23 10/14/19 05:12 10/14/19 05:15 Glucose (Fingerstick) 139 mg/dL (70-99) 138 mg/dL (70-99) 125 mg/dL (70-99) White Blood Count 10.9 x10^3/uL (4.0-11.0) Red Blood Count 3.01 x10^6/uL (3.50-5.40) Hemoglobin 8.6 g/dL (12.0-15.5) Hematocrit 25.5 % (36.0-47.0) Mean Corpuscular Volume 85 fL (79-100) Mean Corpuscular Hemoglobin 29 pg (25-35) Mean Corpuscular Hemoglobin Concent 34 g/dL (31-37) Red Cell Distribution Width 18.1 % (11.5-14.5) Platelet Count 380 x10^3/uL (140-400) Neutrophils (%) (Auto) 78 % (31-73) Lymphocytes (%) (Auto) 12 % (24-48) Monocytes (%) (Auto) 7 % (0-9) Eosinophils (%) (Auto) 2 % (0-3) Basophils (%) (Auto) 0 % (0-3) Neutrophils # (Auto) 8.5 x10^3/uL (1.8-7.7) Lymphocytes # (Auto) 1.3 x10^3/uL (1.0-4.8) Monocytes # (Auto) 0.8 x10^3/uL (0.0-1.1) Eosinophils # (Auto) 0.2 x10^3/uL (0.0-0.7) Basophils # (Auto) 0.0 x10^3/uL (0.0-0.2) Sodium Level 137 mmol/L (136-145) Potassium Level 4.1 mmol/L (3.5-5.1) Chloride Level 101 mmol/L (98-107) Carbon Dioxide Level 36 mmol/L (21-32) Anion Gap 0 (6-14) Blood Urea Nitrogen 15 mg/dL (7-20) Creatinine 0.6 mg/dL (0.6-1.0) Estimated GFR (Cockcroft-Gault) 106.3 BUN/Creatinine Ratio 25 (6-20) Glucose Level 126 mg/dL (70-99) Calcium Level 10.4 mg/dL (8.5-10.1) Phosphorus Level 4.4 mg/dL (2.6-4.7) Magnesium Level 2.1 mg/dL (1.8-2.4) Total Bilirubin 0.5 mg/dL (0.2-1.0) Aspartate Amino Transf (AST/SGOT) 19 U/L (15-37) Alanine Aminotransferase (ALT/SGPT) 14 U/L (14-59) Alkaline Phosphatase 161 U/L (46-116) Total Protein 4.6 g/dL (6.4-8.2) Albumin 1.1 g/dL (3.4-5.0) Albumin/Globulin Ratio 0.3 (1.0-1.7) Laboratory Tests Test 10/13/19 12:50 10/13/19 17:39 10/14/19 00:23 10/14/19 05:12 Glucose (Fingerstick) 150 mg/dL (70-99) 139 mg/dL (70-99) 138 mg/dL (70-99) 125 mg/dL (70-99) Test 10/14/19 05:15 White Blood Count 10.9 x10^3/uL (4.0-11.0) Red Blood Count 3.01 x10^6/uL (3.50-5.40) Hemoglobin 8.6 g/dL (12.0-15.5) Hematocrit 25.5 % (36.0-47.0) Mean Corpuscular Volume 85 fL (79-100) Mean Corpuscular Hemoglobin 29 pg (25-35) Mean Corpuscular Hemoglobin Concent 34 g/dL (31-37) Red Cell Distribution Width 18.1 % (11.5-14.5) Platelet Count 380 x10^3/uL (140-400) Neutrophils (%) (Auto) 78 % (31-73) Lymphocytes (%) (Auto) 12 % (24-48) Monocytes (%) (Auto) 7 % (0-9) Eosinophils (%) (Auto) 2 % (0-3) Basophils (%) (Auto) 0 % (0-3) Neutrophils # (Auto) 8.5 x10^3/uL (1.8-7.7) Lymphocytes # (Auto) 1.3 x10^3/uL (1.0-4.8) Monocytes # (Auto) 0.8 x10^3/uL (0.0-1.1) Eosinophils # (Auto) 0.2 x10^3/uL (0.0-0.7) Basophils # (Auto) 0.0 x10^3/uL (0.0-0.2) Sodium Level 137 mmol/L (136-145) Potassium Level 4.1 mmol/L (3.5-5.1) Chloride Level 101 mmol/L (98-107) Carbon Dioxide Level 36 mmol/L (21-32) Anion Gap 0 (6-14) Blood Urea Nitrogen 15 mg/dL (7-20) Creatinine 0.6 mg/dL (0.6-1.0) Estimated GFR (Cockcroft-Gault) 106.3 BUN/Creatinine Ratio 25 (6-20) Glucose Level 126 mg/dL (70-99) Calcium Level 10.4 mg/dL (8.5-10.1) Phosphorus Level 4.4 mg/dL (2.6-4.7) Magnesium Level 2.1 mg/dL (1.8-2.4) Total Bilirubin 0.5 mg/dL (0.2-1.0) Aspartate Amino Transf (AST/SGOT) 19 U/L (15-37) Alanine Aminotransferase (ALT/SGPT) 14 U/L (14-59) Alkaline Phosphatase 161 U/L (46-116) Total Protein 4.6 g/dL (6.4-8.2) Albumin 1.1 g/dL (3.4-5.0) Albumin/Globulin Ratio 0.3 (1.0-1.7) Problem List Problems Medical Problems: (1) Acute pancreatitis Status: Acute (2) Cholelithiasis Status: Acute Assessment/Plan tentative plans next week for surgery with Dr Servin Justicifation of Admission Dx: Justifications for Admission: Justification of Admission Dx: Yes 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 APRN Oct 14, 2019 08:46
--- NOTE | 2019-10-14 09:30 | PDOC ---
PULMONARY PROGRESS NOTES Subjective Sleeping laying in bed Patient intubated on 07/10 , s/p trach 07/24, transferred back to ICU 09/22 for syncope with collapse developed anemia, blood drainage from RLQ abdomen drain site, and surrounding firmness / developed septic shock 09/24 from abdomen source, required levo 09/24 s/p 3 new drains 09/24 with brown color drainage s/p left chest tube, draining Vitals Vital Signs Date Time Temp Pulse Resp B/P (MAP) Pulse Ox O2 Delivery O2 Flow Rate FiO2 10/14/19 08:58 96 Tracheal Collar 8.0 10/14/19 04:00 99.1 112 28 91/57 (68) 99.1 Comments awake,no soa General: Alert, No acute distress HEENT: Other (nc at perrl nose clear neck trach site ok no lab no thyromegaly) Lungs: Other (diminshed in bases, Rhonci in LLL) Cardiovascular: S1, S2 Abdomen: Soft, Non-tender, Other (bleeding from Sx. site RLQ and firmness) Extremities: Other (+1 BLE edema) Skin: Warm, Dry Labs Laboratory Tests Test 10/12/19 18:04 10/13/19 01:01 10/13/19 06:16 10/13/19 12:50 Glucose (Fingerstick) 172 mg/dL (70-99) 134 mg/dL (70-99) 123 mg/dL (70-99) 150 mg/dL (70-99) Test 10/13/19 17:39 10/14/19 00:23 10/14/19 05:12 10/14/19 05:15 Glucose (Fingerstick) 139 mg/dL (70-99) 138 mg/dL (70-99) 125 mg/dL (70-99) White Blood Count 10.9 x10^3/uL (4.0-11.0) Red Blood Count 3.01 x10^6/uL (3.50-5.40) Hemoglobin 8.6 g/dL (12.0-15.5) Hematocrit 25.5 % (36.0-47.0) Mean Corpuscular Volume 85 fL (79-100) Mean Corpuscular Hemoglobin 29 pg (25-35) Mean Corpuscular Hemoglobin Concent 34 g/dL (31-37) Red Cell Distribution Width 18.1 % (11.5-14.5) Platelet Count 380 x10^3/uL (140-400) Neutrophils (%) (Auto) 78 % (31-73) Lymphocytes (%) (Auto) 12 % (24-48) Monocytes (%) (Auto) 7 % (0-9) Eosinophils (%) (Auto) 2 % (0-3) Basophils (%) (Auto) 0 % (0-3) Neutrophils # (Auto) 8.5 x10^3/uL (1.8-7.7) Lymphocytes # (Auto) 1.3 x10^3/uL (1.0-4.8) Monocytes # (Auto) 0.8 x10^3/uL (0.0-1.1) Eosinophils # (Auto) 0.2 x10^3/uL (0.0-0.7) Basophils # (Auto) 0.0 x10^3/uL (0.0-0.2) Sodium Level 137 mmol/L (136-145) Potassium Level 4.1 mmol/L (3.5-5.1) Chloride Level 101 mmol/L (98-107) Carbon Dioxide Level 36 mmol/L (21-32) Anion Gap 0 (6-14) Blood Urea Nitrogen 15 mg/dL (7-20) Creatinine 0.6 mg/dL (0.6-1.0) Estimated GFR (Cockcroft-Gault) 106.3 BUN/Creatinine Ratio 25 (6-20) Glucose Level 126 mg/dL (70-99) Calcium Level 10.4 mg/dL (8.5-10.1) Phosphorus Level 4.4 mg/dL (2.6-4.7) Magnesium Level 2.1 mg/dL (1.8-2.4) Total Bilirubin 0.5 mg/dL (0.2-1.0) Aspartate Amino Transf (AST/SGOT) 19 U/L (15-37) Alanine Aminotransferase (ALT/SGPT) 14 U/L (14-59) Alkaline Phosphatase 161 U/L (46-116) Total Protein 4.6 g/dL (6.4-8.2) Albumin 1.1 g/dL (3.4-5.0) Albumin/Globulin Ratio 0.3 (1.0-1.7) Laboratory Tests Test 10/13/19 12:50 10/13/19 17:39 10/14/19 00:23 10/14/19 05:12 Glucose (Fingerstick) 150 mg/dL (70-99) 139 mg/dL (70-99) 138 mg/dL (70-99) 125 mg/dL (70-99) Test 10/14/19 05:15 White Blood Count 10.9 x10^3/uL (4.0-11.0) Red Blood Count 3.01 x10^6/uL (3.50-5.40) Hemoglobin 8.6 g/dL (12.0-15.5) Hematocrit 25.5 % (36.0-47.0) Mean Corpuscular Volume 85 fL (79-100) Mean Corpuscular Hemoglobin 29 pg (25-35) Mean Corpuscular Hemoglobin Concent 34 g/dL (31-37) Red Cell Distribution Width 18.1 % (11.5-14.5) Platelet Count 380 x10^3/uL (140-400) Neutrophils (%) (Auto) 78 % (31-73) Lymphocytes (%) (Auto) 12 % (24-48) Monocytes (%) (Auto) 7 % (0-9) Eosinophils (%) (Auto) 2 % (0-3) Basophils (%) (Auto) 0 % (0-3) Neutrophils # (Auto) 8.5 x10^3/uL (1.8-7.7) Lymphocytes # (Auto) 1.3 x10^3/uL (1.0-4.8) Monocytes # (Auto) 0.8 x10^3/uL (0.0-1.1) Eosinophils # (Auto) 0.2 x10^3/uL (0.0-0.7) Basophils # (Auto) 0.0 x10^3/uL (0.0-0.2) Sodium Level 137 mmol/L (136-145) Potassium Level 4.1 mmol/L (3.5-5.1) Chloride Level 101 mmol/L (98-107) Carbon Dioxide Level 36 mmol/L (21-32) Anion Gap 0 (6-14) Blood Urea Nitrogen 15 mg/dL (7-20) Creatinine 0.6 mg/dL (0.6-1.0) Estimated GFR (Cockcroft-Gault) 106.3 BUN/Creatinine Ratio 25 (6-20) Glucose Level 126 mg/dL (70-99) Calcium Level 10.4 mg/dL (8.5-10.1) Phosphorus Level 4.4 mg/dL (2.6-4.7) Magnesium Level 2.1 mg/dL (1.8-2.4) Total Bilirubin 0.5 mg/dL (0.2-1.0) Aspartate Amino Transf (AST/SGOT) 19 U/L (15-37) Alanine Aminotransferase (ALT/SGPT) 14 U/L (14-59) Alkaline Phosphatase 161 U/L (46-116) Total Protein 4.6 g/dL (6.4-8.2) Albumin 1.1 g/dL (3.4-5.0) Albumin/Globulin Ratio 0.3 (1.0-1.7) Medications Active Scripts Medications Dose Route/Sig Max Daily Dose Days Date Category Bisoprolol Fumarate 5 Mg Tablet 10 Mg PO DAILY 07/04/19 Reported Comments CXR 10/09 poor insp effort/ increase effusion ct abdomen /pelvis 09/23 1. Removal of the percutaneous pigtail drainage catheters since the prior exam. Sequela of pancreatitis with extensive pseudocysts again demonstrated, the right-sided collections are slightly larger since the prior exam, the left-sided collections are stable. See above. 2. Moderate to large left pleural effusion with atelectasis and collapse of most of the left lower lobe, stable. Small right pleural effusion is stable. 3. Gallstone. ct chest 10/02 reviewed GRAM NEG COCCOBACILLI:MANY SQUAMOUS EPI CELL:RARE PMN (WBCs):FEW Unless otherwise specified, Testing Performed by: [address] [address] For Inquires, the Physician may contact the Microbiology department at [phone] RESPIRATORY CULTURE Final Final MANY GRAM NEGATIVE RODS on 10/03/19 at 1108 FINAL ID= [[email or web address]] MICRO CHARGES PSEUDOMONAS AERUGINOSA ANTIMICROBIAL SUSCEPTIBILITY Final Comment NEG ALEXANDRA 56 PSEUDOMONAS AERUGINOSA ANTIBIOTIC RESULT INTERPRETATION AMIKACIN <=16 S AZTREONAM <=4 S CEFTAZIDIME <=1 S CIPROFLOXACIN <=0.25 S CEFEPIME <=2 S CEFTAZIDIME/AVIBACTAM <=4 S GENTAMICIN <=2 S LEVOFLOXACIN <=0.5 S Impression . IMPRESSION: 1. Acute hypoxemic respiratory failure secondary to ARDS status post trach, developed anemia 09/24, blood drainage from RLQ abdomen drain site, and surrounding firmness / developed septic shock 09/24 from abdomen source, required levo 09/24 s/p 3 new drains 09/24 with brown color drainage, on/off vent , on TS now 2. Gallstone pancreatitis, now with ongoing bleeding from prior drain. Anemic. s/p Tx multiple units over several days 3. septic shock/sepsis, recurrent 09/24, source abdomen. , off levo now, 4. Acute kidney injury-, Off HD--renal function decling. suspect JUANA on CKD due to hypotension , improved now 5. Acute gallstone pancreatitis. 6. Hypoalbuminemia. 7. Moderate persistent effusions, s/p left thora 08/29, reaccumulation of left effusion. O2 requirement not changed. 8. Fever- ,hypotension. suspect recurrent sepsis/ likely pancreatic source. Per ID, per surgery-- 9. Chronic anemia-- ongoing / s/p PRBC 10. Covid 19 testing negative 11. Moderate to large ascites-S/P paracentisis 12.S/P paracentisis with 4 liters removed on 08/03/19 13. S/P IR drain placement on 08/26/2019, removal, re inserted 09/24 14. Depression/Anxiety 15. Increase effusion, ? loculated/ s/p chest tube.. drainage slowing down. 200 cc /24 hr Plan . We will continue current support Tentatively scheduled for surgery next week 1. TS as tolerated titrate fio2 to keep sat 94%, off vent 2. Follow all cultures/ PSA from pelvic drains. Abx per ID/ thoracentesis result transudate, await c/s, 3. Follow surgery recs-- Acute pancreatitis with persistent necrosis ---- 08/14 status post KAYLIN drain placement + C paropsilosis; 08/23 + yeast & high amylase; s/p additional drains on 08/25, removal of drains and now increase pseudocyst and increase fluid collection. likely infected fluid/ sepsis. on BS abx.follow surgery rec, planning surgical intervention next few weeks 4. Follow ID recs for ABX---- 5. Follow nephrology recs ----- 6. Continue TPN 7. monitor HGB, 4 units since 09/23--monitor HGB transfuse if less than 8.5 8 s/p thoracentesis, 08/29, 3 litres removed, s/p ct on 10/02. ct drainage, 180 cc over the past 24 hrs, suction -40, am cxr, flushed chest tube 10/09 9. Pt remains critically ill from severe necrotic pancreatis. Even with surgery prognosis grim. Surgery informed family. 10. lasix/albumin prn 11. sputum gram neg cocobacilli. anna sensitive DVT/GI PPX: protonix--- PT/OT D/W RN, RT HARMEET BEE MD Oct 14, 2019 09:30
--- NOTE | 2019-10-14 11:00 | PDOC ---
Objective: Objective: D/w nurse - had some shortness of breath this morning, better now. Vital Signs: Vital Signs Date Time Temp Pulse Resp B/P (MAP) Pulse Ox O2 Delivery O2 Flow Rate FiO2 10/14/19 08:58 96 Tracheal Collar 8.0 10/14/19 08:00 99.0 140 28 113/91 (98) 99.0 Labs: Laboratory Tests Test 10/13/19 12:50 10/13/19 17:39 10/14/19 00:23 10/14/19 05:12 Glucose (Fingerstick) 150 mg/dL 139 mg/dL 138 mg/dL 125 mg/dL Test 10/14/19 05:15 White Blood Count 10.9 x10^3/uL Red Blood Count 3.01 x10^6/uL Hemoglobin 8.6 g/dL Hematocrit 25.5 % Mean Corpuscular Volume 85 fL Mean Corpuscular Hemoglobin 29 pg Mean Corpuscular Hemoglobin Concent 34 g/dL Red Cell Distribution Width 18.1 % Platelet Count 380 x10^3/uL Neutrophils (%) (Auto) 78 % Lymphocytes (%) (Auto) 12 % Monocytes (%) (Auto) 7 % Eosinophils (%) (Auto) 2 % Basophils (%) (Auto) 0 % Neutrophils # (Auto) 8.5 x10^3/uL Lymphocytes # (Auto) 1.3 x10^3/uL Monocytes # (Auto) 0.8 x10^3/uL Eosinophils # (Auto) 0.2 x10^3/uL Basophils # (Auto) 0.0 x10^3/uL Sodium Level 137 mmol/L Potassium Level 4.1 mmol/L Chloride Level 101 mmol/L Carbon Dioxide Level 36 mmol/L Anion Gap 0 Blood Urea Nitrogen 15 mg/dL Creatinine 0.6 mg/dL Estimated GFR (Cockcroft-Gault) 106.3 BUN/Creatinine Ratio 25 Glucose Level 126 mg/dL Calcium Level 10.4 mg/dL Phosphorus Level 4.4 mg/dL Magnesium Level 2.1 mg/dL Total Bilirubin 0.5 mg/dL Aspartate Amino Transf (AST/SGOT) 19 U/L Alanine Aminotransferase (ALT/SGPT) 14 U/L Alkaline Phosphatase 161 U/L Total Protein 4.6 g/dL Albumin 1.1 g/dL Albumin/Globulin Ratio 0.3 Imaging: CXR 10/12 Impression: 1. Moderate right pleural effusion with increased adjacent opacities. 2. Small left pleural effusion with adjacent opacity, unchanged. Stable left pigtail pleural drain. PE: GEN: chronically ill LUNGS: trach collar HEART: tachycardic ABD: NG to suction - bilious output NEURO/PSYCH: resting, did not awaken A/P: Complicated pancreatitis -- Stable GI-mcmillan, possibly to OR next week. Justicifation of Admission Dx: Justifications for Admission: Justification of Admission Dx: Yes CYNDEE FALCON Oct 14, 2019 11:00
--- NOTE | 2019-10-14 11:23 | PDOC ---
PROGRESS NOTES Chief Complaint Chief Complaint History of Present Illness 48yo F w/ PMHx HTN, prediabetes who presented the emergency room complaints of abdominal pain. Patient described off and on 3 days. She states is constant, described as a squeezing sensation in a band-like distribution. + nausea, vomiting. She denies any fever or diarrhea. Patient denies any abdominal surgical procedures. She stateed is worse with movements, car ride. Pain initially was upper abdomen however now pretty much generalized. Last bowel movement was 07/03/2019. Nothing makes her pain better. Patient denies any shortness of breath. She does state the pain moves into her chest. Denies any headache or visual changes. Lipase 38337, AST 401, ALT 249, Bilirubin 1.4. CT abdomen confirms pancreatic inflammation, peripancreatic fluid and inflammatory changes around the pancreas consistent with pancreatitis. Cholelithiasis and 1.4cm uterine fibroid as well as possible left salpingitis. Admitted for further care Gallstone pancreatitis with necrosis. -CT A/P 09/23 showed multiple pseudocysts, slight larger on the right. s/p drains x , 09/24. + PSAE (MDRO-R Cefepime, Zosyn ALEXANDRA < 64) and yeast, -s/p drain 08/14. C. parapsilosis. s/p drain 08/23 + yeast & high amylase; s/p additional drain on 08/25. Drains removed. Ascites s/p paracentesis 08/02 & 08/23. C. parapsilosis JUANA. off HD. Impression and plan: Acute hypoxic Respiratory failure required mechanical ventilation Tracheostomy bilateral pleural effusions/pulm edema s/p Throacentesis on 10/03/2019 Severe Acute gallstone pancreatitis (not a surgical candidate at this time) with necrosis Acute kidney failure now requiring dialysis Gallstones (Calculus of gallbladder with acute cholecystitis without obstruction) HTN Intractable pain Intractable nausea Covid 19 negative. Acute on chronic anemia EEG: No seizure activityFever - better currently - intermittent could be from underlying pancreatitis blood cults 08/21 - neg so far ? Ileus with vomiting Abd distention - U/S and CT reviewed s/p 0.4 L of opaque, debris-containing ascites was removed 08/23 Acute pancreatitis with persistent necrosis Gallstone pancreatitis with necrosis. -CT A/P 09/23 showed multiple pseudocysts, slight larger on the right. s/p drains x 3, 09/24. + PSAE (MDRO-R Cefepime, Zosyn ALEXANDRA < 64) and yeast, -s/p drain 08/14. C. parapsilosis. s/p drain 08/23 + yeast & high amylase; s/p additional drain on 08/25. Drains removed. Ascites s/p paracentesis 08/02 & 08/23. C. parapsilosis JUANA. off HD. A large fluid collection in the pancreatic bed has slightly decreased in size, described below, the pancreas itself is difficult to visualize, which could be due to necrosis or obscuration of pancreatic parenchyma from the surrounding fluid collection.10/02 - 08/14 status post KAYLIN drain placement + C paropsilosis. s/p additional drains 08/25 Anemia - S/p PRBCs Cholelithiasis with thickening of the gallbladder wall. Leucocytosis improving JUANA, hyperkalemia, Metabolic acidosis off dialysis hypocalcemia Prediabetes HTN s/p trach ESRD on HD Hyperglycemia severe protein-caloric malnutrition Moderate to large left pleural effusion with atelectasis and collapse of most of the left lower lobe, stable FEN - albumin, NS at 80 cc/hr, TPN Off antibiotics PPX - SCDs, off lovenox currently, high risk for thrombosis but in light of her recent anemia and need for transfusion the risks do not outweigh benefits at this time. will continue to evaluate on a daily basis FULL CODE Dispo - ICU, critically ill Poor prognosis 37 MIN CC TIME History of Present Illness History of Present Illness 09/25: IR placed drain on 09/24. 4u PRBC after Hb drop. Hb 8.8 today. Off Levophed this morning. T-max 100.3. Much more lethargic today. CXR with left sided diffuse infiltrates. 09/26: Tachycardic overnight into the 140s. NGT clamped. On BIPAP currently. Drains with serosanguinous discharge. WBC 8, Tmax 99.6F. 09/27: Seen on [facility] in ICU. Hypertensive and tachycardic. Labs stable. blood stained drainage from drains. Afebrile. 09/28: Seen on [facility] in ICU. She is a bit confused, drowsy, but when sitting up is conversational and confusion somewhat clears. She is asking for more pain medication. Stable drains, still very tachy.Na 147 09/29: Patient vomited overnight. Aspirated. Tried to pull her trach out, she was told she would without her trach, she said "I know, I just want to go home". Hb 7.6. Afebrile, still very tachycardic. 1055ml out of right sided KAYLIN drain 09/30: Overnight hypoxic, on BIPAP. CXR with left sided white out lung. Significant mucous plug suctioned by RT with improvement in her ABG after 2 hours this morning. Not really active, tired, lethargic. 890ml out of drains past 24 hours. On vent. D/w daughter bedside. 10/01: Still on vent overnight with copious pulmonary drainage on suctioning. Labs stable, UOP stable 1L. Drain output still significant with 1505mL. She has shown her phone password [phone] and made it clear she does not want her daughters to access her phone at this time. 6:15: Patient quite frail, she has had such a lengthy hospital stay that she is certainly depressed and as documented 3 days ago is wanting to go home. Most likely patient is also tired of being hospitalized with an end point no where in sight. Reassurance and encouragement provided during my visit. Plans for thoracentesis later in the day 10/03: No acute events reported overnight, case discussed with nursing staff patient in no acute distress, complaints of the abdomimal pain during my visit, patient is quite depressed, reassurance has been provided, discussed with nursing staff at bedside, replace electrolytes 10/04 off vent / on TS , no distress 10/12 Patient seen and examined ICU BED [id number] prognosis Sputum from 09/30 - growing PSA - may be colonization I to Meropenem add Cipro Continue meropenem, has MDRP PSAE September 24 from abd cont micafungin September 24 bleeding from Sx. site RLQ and firmness)stable oncology consulted Cholelithiasis. Mild thickened appearance of the gallbladder wall. sono 10/12 Mild right hydronephrosis.Fluid collection identified anterior to the pancreas. ct drainage 200 cc/24 hrs d/c antibiotics , observe 10/12 cxr pending 10/1210/14/2019 Patient having trouble with secretions this morning, no other complaints, discussed with surgical DECK STEWARD. Plans for OR on Thursday. No fever above 99.9 overn ight, remains tachycardic, medications reviewed. 36 MIN CC TIME Date: Aug 15, 2019 Pre-Op Diagnosis: Necrotizing pancreatitis Post-Op Diagnosis: same Procedure Performed: laparoscopic exploration Surgeon: Renzo Servin Asst: Dr. Arturo Harris Anesthesia Type: GETA plus local Blood Loss: 50 Specimans Obtained: cultures, debris Findings: 1000 cc ascites suctioned off, cultures sent, diffuse debris, obliteration of surgical planes preventing any meaningful exploration 09/19/2019 Patient seen and examined in the ICU She appears extremely ill She is tachypneic at 35 respirations per minute and tachycardic at 132 bpm She is extremely encephalopathic and shaky She appears clammy Chart reviewed Discussed with RN Prognosis extremely guarded at best 09/18/2019 Patient still in ICU Resting with no apparent distress Chart reviewed 09/17/2019 Patient seen and examined in the ICU She is wiping her face with a cough Discussed with RN Chart reviewed We hope to get her out of the ICU later today if possible 09/16/2019 Patient seen and examined in the ICU once again She is back on NG suction On IV Zosyn Has IV TPN Sedated with Precedex but anxious still Appears somewhat clammy and pale Chart reviewed Discussed with RN She remains critically ill BRIEF OPERATIVE NOTE Pre-Op Diagnosis Pancreatitis with pseudocysts, suspected infection Post-Op Diagnosis same Procedure Performed CT abdominal Drains x 3 Surgeon Tesfaye Anesthesia Type: Conscious Sedation Findings 3 abdominal drains, 14F, with turbid pancreatic fluid and necrotic debris in each. Complications No immediate 08/26: Patient today somewhat restless and having bilious secretions from ET tube, imaging studies ordered, discussed with bridal consultant. Pretty poor prognosis, hopefully is not a fistula, poor surgical candidate. 08/27: Imaging with no acute events, she seems more stable today compared to yesterday. Encouraged as much activity as possible patient at high risk for severe depression. Vitals Vitals Vital Signs Date Time Temp Pulse Resp B/P (MAP) Pulse Ox O2 Delivery O2 Flow Rate FiO2 10/14/19 08:58 96 Tracheal Collar 8.0 10/14/19 08:00 99.0 140 28 113/91 (98) 99.0 Physical Exam Physical Exam GENERAL: Propped up in bed, resting quietly watching tv HEENT: 8 liters nc NECK: Tracheostomy LUNGS: Diminished aeration bases, no accessory muscle use - CT on left with clear fluid HEART: S1, S2,regular ABDOMEN: Mild distention, bowel sounds present, soft, grimaces to palpation, drains x 3 : Lind ( 09/24) EXTREMITIES: + edema BLE SKIN: no signs of gen rash LUE-PICC without signs of complications General: Alert, Cooperative Heart: Regular rate (SR/ST), Other (distant heart sounds) Lungs: Other (diminshed in bases, Rhonci in LLL) Abdomen: Soft, Other (drains in place) Extremities: No cyanosis, Other (3+ bilateral LE pitting edema) Skin: No rashes, No significant lesion Labs LABS Laboratory Tests Test 10/13/19 12:50 10/13/19 17:39 10/14/19 00:23 10/14/19 05:12 Glucose (Fingerstick) 150 mg/dL (70-99) 139 mg/dL (70-99) 138 mg/dL (70-99) 125 mg/dL (70-99) Test 10/14/19 05:15 White Blood Count 10.9 x10^3/uL (4.0-11.0) Red Blood Count 3.01 x10^6/uL (3.50-5.40) Hemoglobin 8.6 g/dL (12.0-15.5) Hematocrit 25.5 % (36.0-47.0) Mean Corpuscular Volume 85 fL (79-100) Mean Corpuscular Hemoglobin 29 pg (25-35) Mean Corpuscular Hemoglobin Concent 34 g/dL (31-37) Red Cell Distribution Width 18.1 % (11.5-14.5) Platelet Count 380 x10^3/uL (140-400) Neutrophils (%) (Auto) 78 % (31-73) Lymphocytes (%) (Auto) 12 % (24-48) Monocytes (%) (Auto) 7 % (0-9) Eosinophils (%) (Auto) 2 % (0-3) Basophils (%) (Auto) 0 % (0-3) Neutrophils # (Auto) 8.5 x10^3/uL (1.8-7.7) Lymphocytes # (Auto) 1.3 x10^3/uL (1.0-4.8) Monocytes # (Auto) 0.8 x10^3/uL (0.0-1.1) Eosinophils # (Auto) 0.2 x10^3/uL (0.0-0.7) Basophils # (Auto) 0.0 x10^3/uL (0.0-0.2) Sodium Level 137 mmol/L (136-145) Potassium Level 4.1 mmol/L (3.5-5.1) Chloride Level 101 mmol/L (98-107) Carbon Dioxide Level 36 mmol/L (21-32) Anion Gap 0 (6-14) Blood Urea Nitrogen 15 mg/dL (7-20) Creatinine 0.6 mg/dL (0.6-1.0) Estimated GFR (Cockcroft-Gault) 106.3 BUN/Creatinine Ratio 25 (-20) Glucose Level 126 mg/dL (70-99) Calcium Level 10.4 mg/dL (8.5-10.1) Phosphorus Level 4.4 mg/dL (2.6-4.7) Magnesium Level 2.1 mg/dL (1.8-2.4) Total Bilirubin 0.5 mg/dL (0.2-1.0) Aspartate Amino Transf (AST/SGOT) 19 U/L (15-37) Alanine Aminotransferase (ALT/SGPT) 14 U/L (14-59) Alkaline Phosphatase 161 U/L (46-116) Total Protein 4.6 g/dL (6.4-8.2) Albumin 1.1 g/dL (3.4-5.0) Albumin/Globulin Ratio 0.3 (1.0-1.7) Assessment and Plan Assessmemt and Plan Problems Medical Problems: (1) Acute pancreatitis Status: Acute (2) Cholelithiasis Status: Acute Comment Review of Relevant I have reviewed the following items kolby (where applicable) has been applied. Labs Laboratory Tests Test 10/12/19 18:04 10/13/19 01:01 10/13/19 06:16 10/13/19 12:50 Glucose (Fingerstick) 172 mg/dL (70-99) 134 mg/dL (70-99) 123 mg/dL (70-99) 150 mg/dL (70-99) Test 10/13/19 17:39 10/14/19 00:23 10/14/19 05:12 10/14/19 05:15 Glucose (Fingerstick) 139 mg/dL (70-99) 138 mg/dL (70-99) 125 mg/dL (70-99) White Blood Count 10.9 x10^3/uL (4.0-11.0) Red Blood Count 3.01 x10^6/uL (3.50-5.40) Hemoglobin 8.6 g/dL (12.0-15.5) Hematocrit 25.5 % (36.0-47.0) Mean Corpuscular Volume 85 fL (79-100) Mean Corpuscular Hemoglobin 29 pg (25-35) Mean Corpuscular Hemoglobin Concent 34 g/dL (31-37) Red Cell Distribution Width 18.1 % (11.5-14.5) Platelet Count 380 x10^3/uL (140-400) Neutrophils (%) (Auto) 78 % (31-73) Lymphocytes (%) (Auto) 12 % (24-48) Monocytes (%) (Auto) 7 % (0-9) Eosinophils (%) (Auto) 2 % (0-3) Basophils (%) (Auto) 0 % (0-3) Neutrophils # (Auto) 8.5 x10^3/uL (1.8-7.7) Lymphocytes # (Auto) 1.3 x10^3/uL (1.0-4.8) Monocytes # (Auto) 0.8 x10^3/uL (0.0-1.1) Eosinophils # (Auto) 0.2 x10^3/uL (0.0-0.7) Basophils # (Auto) 0.0 x10^3/uL (0.0-0.2) Sodium Level 137 mmol/L (136-145) Potassium Level 4.1 mmol/L (3.5-5.1) Chloride Level 101 mmol/L (98-107) Carbon Dioxide Level 36 mmol/L (21-32) Anion Gap 0 (6-14) Blood Urea Nitrogen 15 mg/dL (7-20) Creatinine 0.6 mg/dL (0.6-1.0) Estimated GFR (Cockcroft-Gault) 106.3 BUN/Creatinine Ratio 25 (6-20) Glucose Level 126 mg/dL (70-99) Calcium Level 10.4 mg/dL (8.5-10.1) Phosphorus Level 4.4 mg/dL (2.6-4.7) Magnesium Level 2.1 mg/dL (1.8-2.4) Total Bilirubin 0.5 mg/dL (0.2-1.0) Aspartate Amino Transf (AST/SGOT) 19 U/L (15-37) Alanine Aminotransferase (ALT/SGPT) 14 U/L (14-59) Alkaline Phosphatase 161 U/L (46-116) Total Protein 4.6 g/dL (6.4-8.2) Albumin 1.1 g/dL (3.4-5.0) Albumin/Globulin Ratio 0.3 (1.0-1.7) Laboratory Tests Test 10/13/19 12:50 10/13/19 17:39 10/14/19 00:23 10/14/19 05:12 Glucose (Fingerstick) 150 mg/dL (70-99) 139 mg/dL (70-99) 138 mg/dL (70-99) 125 mg/dL (70-99) Test 10/14/19 05:15 White Blood Count 10.9 x10^3/uL (4.0-11.0) Red Blood Count 3.01 x10^6/uL (3.50-5.40) Hemoglobin 8.6 g/dL (12.0-15.5) Hematocrit 25.5 % (36.0-47.0) Mean Corpuscular Volume 85 fL (79-100) Mean Corpuscular Hemoglobin 29 pg (25-35) Mean Corpuscular Hemoglobin Concent 34 g/dL (31-37) Red Cell Distribution Width 18.1 % (11.5-14.5) Platelet Count 380 x10^3/uL (140-400) Neutrophils (%) (Auto) 78 % (31-73) Lymphocytes (%) (Auto) 12 % (24-48) Monocytes (%) (Auto) 7 % (0-9) Eosinophils (%) (Auto) 2 % (0-3) Basophils (%) (Auto) 0 % (0-3) Neutrophils # (Auto) 8.5 x10^3/uL (1.8-7.7) Lymphocytes # (Auto) 1.3 x10^3/uL (1.0-4.8) Monocytes # (Auto) 0.8 x10^3/uL (0.0-1.1) Eosinophils # (Auto) 0.2 x10^3/uL (0.0-0.7) Basophils # (Auto) 0.0 x10^3/uL (0.0-0.2) Sodium Level 137 mmol/L (136-145) Potassium Level 4.1 mmol/L (3.5-5.1) Chloride Level 101 mmol/L (98-107) Carbon Dioxide Level 36 mmol/L (21-32) Anion Gap 0 (6-14) Blood Urea Nitrogen 15 mg/dL (7-20) Creatinine 0.6 mg/dL (0.6-1.0) Estimated GFR (Cockcroft-Gault) 106.3 BUN/Creatinine Ratio 25 (6-20) Glucose Level 126 mg/dL (70-99) Calcium Level 10.4 mg/dL (8.5-10.1) Phosphorus Level 4.4 mg/dL (2.6-4.7) Magnesium Level 2.1 mg/dL (1.8-2.4) Total Bilirubin 0.5 mg/dL (0.2-1.0) Aspartate Amino Transf (AST/SGOT) 19 U/L (15-37) Alanine Aminotransferase (ALT/SGPT) 14 U/L (14-59) Alkaline Phosphatase 161 U/L (46-116) Total Protein 4.6 g/dL (6.4-8.2) Albumin 1.1 g/dL (3.4-5.0) Albumin/Globulin Ratio 0.3 (1.0-1.7) Microbiology 10/06/19 Blood Culture - Final, Complete NO GROWTH AFTER 5 DAYS 10/03/19 Gram Stain - Final, Complete 10/03/19 Aerobic and Anaerobic Culture - Final, Complete 10/01/19 Gram Stain Evaluation - Final, Complete 10/01/19 Respiratory Culture - Final, Complete 10/01/19 Antimicrobic Susceptibility - Final, Complete 09/25/19 Urine Culture - Final, Complete 09/17/19 Gram Stain - Final, Complete 09/17/19 Aerobic Culture - Final, Complete Medications Current Medications Sodium Chloride 1,000 ml @ 1,000 mls/hr Q1H IV Last administered on 07/04/19at 03:00; Start 07/04/19 at 03:00; Stop 07/04/19 at 03:59; Status DC Ondansetron HCl (Zofran) 4 mg 1X ONCE IVP Last administered on 07/04/19at 03:27; Start 07/04/19 at 03:00; Stop 07/04/19 at 03:01; Status DC Morphine Sulfate (Morphine Sulfate) 4 mg 1X ONCE IV ; Start 07/04/19 at 03:00; Stop 07/04/19 at 03:01; Status Cancel Ketorolac Tromethamine (Toradol 30mg Vial) 30 mg 1X ONCE IV Last administered on 07/04/19at 02:54; Start 07/04/19 at 03:00; Stop 07/04/19 at 03:01; Status DC Fentanyl Citrate (Fentanyl 2ml Vial) 25 mcg 1X ONCE IVP Last administered on 07/04/19at 03:23; Start 07/04/19 at 03:30; Stop 07/04/19 at 03:31; Status DC Fentanyl Citrate (Fentanyl 2ml Vial) 100 mcg STK-MED ONCE .ROUTE ; Start 07/04/19 at 03:18; Stop 07/04/19 at 03:18; Status DC Iohexol (Omnipaque 350 Mg/ml) 90 ml 1X ONCE IV Last administered on 07/04/19at 03:25; Start 07/04/19 at 03:30; Stop 07/04/19 at 03:31; Status DC Info (CONTRAST GIVEN -- Rx MONITORING) 1 each PRN DAILY PRN MC SEE COMMENTS; Start 07/04/19 at 03:30; Stop 07/06/19 at 03:29; Status DC Hydromorphone HCl (Dilaudid) 0.5 mg 1X ONCE IV Last administered on 07/04/19at 03:55; Start 07/04/19 at 04:30; Stop 07/04/19 at 04:32; Status DC Ondansetron HCl (Zofran) 4 mg PRN Q8HRS PRN IV NAUSEA/VOMITING 1ST CHOICE; Start 07/04/19 at 05:00; Stop 07/04/19 at 09:27; Status DC Morphine Sulfate (Morphine Sulfate) 2 mg PRN Q2HR PRN IV SEVERE PAIN 7-10 Last administered on 07/05/19at 12:26; Start 07/04/19 at 05:00; Stop 07/05/19 at 14:15; Status DC Sodium Chloride 1,000 ml @ 125 mls/hr Q8H IV Last administered on 07/04/19at 20:56; Start 07/04/19 at 05:00; Stop 07/05/19 at 04:59; Status DC Hydromorphone HCl (Dilaudid) 0.5 mg PRN Q3HRS PRN IV SEVERE PAIN 7-10 Last administered on 07/05/19at 10:06; Start 07/04/19 at 05:00; Stop 07/05/19 at 12:01; Status DC Piperacillin Sod/ Tazobactam Sod 4.5 gm/Sodium Chloride 100 ml @ 200 mls/hr 1X ONCE IV Last administered on 07/04/19at 05:44; Start 07/04/19 at 06:00; Stop 07/04/19 at 06:29; Status DC Ondansetron HCl (Zofran) 4 mg PRN Q4HRS PRN IV NAUSEA/VOMITING 1ST CHOICE Last administered on 10/11/19at 10:32; Start 07/04/19 at 09:30 Insulin Human Lispro (HumaLOG) 0-9 UNITS Q6HRS SQ Last administered on 10/12/19at 18:05; Start 07/04/19 at 09:30 Dextrose (Dextrose 50%-Water Syringe) 12.5 gm PRN Q15MIN PRN IV SEE COMMENTS; Start 07/04/19 at 09:30 Pantoprazole Sodium (PROTONIX VIAL for IV PUSH) 40 mg DAILYAC IVP Last administered on 10/14/19at 07:30; Start 07/04/19 at 11:30 Prochlorperazine Edisylate (Compazine) 10 mg PRN Q6HRS PRN IV NAUSEA/VOMITING, 2nd CHOICE Last administered on 10/12/19at 11:56; Start 07/04/19 at 17:45 Atenolol (Tenormin) 100 mg DAILY PO ; Start 07/05/19 at 09:00; Stop 07/04/19 at 20:08; Status DC Metoprolol Tartrate (Lopressor Vial) 2.5 mg Q6HRS IVP Last administered on 07/05/19at 05:51; Start 07/04/19 at 20:15; Stop 07/05/19 at 10:02; Status DC Metoprolol Tartrate (Lopressor Vial) 5 mg Q6HRS IVP Last administered on 07/14/19at 00:12; Start 07/05/19 at 10:15; Stop 07/16/19 at 08:48; Status DC Hydromorphone HCl (Dilaudid) 1 mg PRN Q3HRS PRN IV SEVERE PAIN 7-10 Last administered on 07/11/19at 05:13; Start 07/05/19 at 12:00; Stop 07/19/19 at 00:25; Status DC Lidocaine HCl (Buffered Lidocaine 1%) 3 ml STK-MED ONCE .ROUTE ; Start 07/05/19 at 12:55; Stop 07/05/19 at 12:56; Status DC Albumin Human 500 ml @ 125 mls/hr 1X ONCE IV Last administered on 07/05/19at 14:33; Start 07/05/19 at 14:30; Stop 07/05/19 at 18:32; Status DC Norepinephrine Bitartrate 8 mg/ Dextrose 258 ml @ 17.299 mls/ hr CONT PRN IV PER PROTOCOL Last administered on 08/02/19at 12:48; Start 07/05/19 at 15:30; Stop 08/05/19 at 09:19; Status DC Sodium Chloride 1,000 ml @ 125 mls/hr Q8H IV Last administered on 07/05/19at 21:04; Start 07/05/19 at 16:00; Stop 07/06/19 at 02:42; Status DC Albumin Human 500 ml @ 125 mls/hr PRN BID PRN IV After every 2L NSS & BP < 90mm Last administered on 09/24/19at 11:40; Start 07/05/19 at 16:00 Iohexol (Omnipaque 300 Mg/ml) 60 ml 1X ONCE IV Last administered on 07/05/19at 17:20; Start 07/05/19 at 17:00; Stop 07/05/19 at 17:01; Status DC Info (CONTRAST GIVEN -- Rx MONITORING) 1 each PRN DAILY PRN MC SEE COMMENTS; Start 07/05/19 at 17:00; Stop 07/07/19 at 16:59; Status DC Meropenem 1 gm/ Sodium Chloride 100 ml @ 200 mls/hr Q8HRS IV Last administered on 07/06/19at 05:45; Start 07/05/19 at 20:00; Stop 07/06/19 at 08:48; Status DC Furosemide (Lasix) 40 mg 1X ONCE IVP Last administered on 07/05/19at 22:12; Start 07/05/19 at 22:30; Stop 07/05/19 at 22:31; Status DC Calcium Chloride 1000 mg/Sodium Chloride 110 ml @ 220 mls/hr 1X ONCE IV Last administered on 07/05/19at 22:11; Start 07/05/19 at 22:30; Stop 07/05/19 at 22:59; Status DC Albuterol Sulfate (Ventolin Neb Soln) 2.5 mg 1X ONCE NEB Last administered on 07/06/19at 00:56; Start 07/05/19 at 22:30; Stop 07/05/19 at 22:31; Status DC Insulin Human Regular (HumuLIN R VIAL) 5 unit 1X ONCE IV Last administered on 07/05/19at 22:14; Start 07/05/19 at 22:30; Stop 07/05/19 at 22:31; Status DC Magnesium Sulfate 50 ml @ 25 mls/hr 1X ONCE IV Last administered on 07/06/19at 02:57; Start 07/06/19 at 03:00; Stop 07/06/19 at 04:59; Status DC Calcium Gluconate 1000 mg/Sodium Chloride 110 ml @ 220 mls/hr 1X ONCE IV Last administered on 07/06/19at 02:46; Start 07/06/19 at 03:00; Stop 07/06/19 at 03:29; Status DC Sodium Chloride 1,000 ml @ 200 mls/hr Q5H IV Last administered on 07/06/19at 02:46; Start 07/06/19 at 03:00; Stop 07/06/19 at 10:21; Status DC Calcium Gluconate 1000 mg/Sodium Chloride 110 ml @ 220 mls/hr 1X ONCE IV Last administered on 07/06/19at 03:21; Start 07/06/19 at 03:30; Stop 07/06/19 at 03:59; Status DC Sodium Bicarbonate 50 meq/Sodium Chloride 1,050 ml @ 75 mls/hr Q14H IV Last administered on 07/10/19at 21:10; Start 07/06/19 at 07:30; Stop 07/11/19 at 10:28; Status DC Calcium Gluconate 2000 mg/Sodium Chloride 120 ml @ 220 mls/hr 1X ONCE IV Last administered on 07/06/19at 09:05; Start 07/06/19 at 07:30; Stop 07/06/19 at 08:02; Status DC Lidocaine HCl (Xylocaine-Mpf 1% 2ml Vial) 2 ml STK-MED ONCE .ROUTE ; Start 07/06/19 at 08:47; Stop 07/06/19 at 08:47; Status DC Meropenem 500 mg/ Sodium Chloride 50 ml @ 100 mls/hr Q12HR IV Last administered on 07/11/19at 21:01; Start 07/06/19 at 18:00; Stop 07/12/19 at 07:58; Status DC Lidocaine HCl (Buffered Lidocaine 1%) 3 ml STK-MED ONCE .ROUTE ; Start 07/06/19 at 09:46; Stop 07/06/19 at 09:46; Status DC Lidocaine HCl (Buffered Lidocaine 1%) 6 ml 1X ONCE INJ Last administered on 07/06/19at 10:26; Start 07/06/19 at 10:15; Stop 07/06/19 at 10:16; Status DC Info (Tpn Per Pharmacy) 1 each PRN DAILY PRN MC SEE COMMENTS Last administered on 10/13/19at 10:29; Start 07/06/19 at 12:00 Sodium Chloride 1,000 ml @ 1,000 mls/hr Q1H PRN IV hypotension; Start 07/06/19 at 12:07; Stop 07/06/19 at 18:06; Status DC Diphenhydramine HCl (Benadryl) 25 mg 1X PRN PRN IV ITCHING; Start 07/06/19 at 12:15; Stop 07/07/19 at 12:14; Status DC Diphenhydramine HCl (Benadryl) 25 mg 1X PRN PRN IV ITCHING; Start 07/06/19 at 12:15; Stop 07/07/19 at 12:14; Status DC Sodium Chloride 1,000 ml @ 400 mls/hr Q2H30M PRN IV PATENCY; Start 07/06/19 at 12:07; Stop 07/07/19 at 00:06; Status DC Info (PHARMACY MONITORING -- do not chart) 1 each PRN DAILY PRN MC SEE COMMENTS; Start 07/06/19 at 12:15; Stop 07/08/19 at 08:13; Status DC Sodium Chloride 90 meq/Calcium Gluconate 10 meq/ Multivitamins 10 ml/Chromium/ Copper/Manganese/ Seleni/Zn 1 ml/ Total Parenteral Nutrition/Amino Acids/Dextrose/ Fat Emulsion Intravenous 55.005 ml @ 2.292 mls/hr TPN CONT IV ; Start 07/06/19 at 22:00; Stop 07/06/19 at 12:33; Status DC Info (Tpn Per Pharmacy) 1 each PRN DAILY PRN MC SEE COMMENTS; Start 07/06/19 at 12:30; Status UNV Sodium Chloride 90 meq/Calcium Gluconate 10 meq/ Multivitamins 10 ml/Chromium/ Copper/Manganese/ Seleni/Zn 0.5 ml/ Total Parenteral Nutrition/Amino Acids/Dextrose/ Fat Emulsion Intravenous 1,512 ml @ 63 mls/hr TPN CONT IV Last administered on 07/06/19at 22:06; Start 07/06/19 at 22:00; Stop 07/07/19 at 21:59; Status DC Calcium Carbonate/ Glycine (Tums) 500 mg PRN AFTMEALHC PRN PO INDIGESTION; Start 07/06/19 at 17:45; Stop 08/31/19 at 10:25; Status DC Calcium Gluconate (Calcium Gluconate) 2,000 mg 1X ONCE IVP Last administered on 07/07/19at 02:19; Start 07/07/19 at 02:15; Stop 07/07/19 at 02:16; Status DC Calcium Chloride 3000 mg/Sodium Chloride 1,030 ml @ 50 mls/hr [id number] IV Last administered on 07/09/19at 02:17; Start 07/07/19 at 08:00; Stop 07/09/19 at 15:23; Status DC Lorazepam (Ativan Inj) 1 mg PRN Q4HRS PRN IVP ANXIETY / AGITATION, 2nd choic Last administered on 08/05/19at 03:51; Start 07/07/19 at 09:00; Stop 08/05/19 at 09:19; Status DC Sodium Chloride 1,000 ml @ 1,000 mls/hr Q1H PRN IV hypotension; Start 07/07/19 at 08:56; Stop 07/07/19 at 14:55; Status DC Albumin Human 200 ml @ 200 mls/hr 1X PRN PRN IV Hypotension; Start 07/07/19 at 09:00; Stop 07/07/19 at 14:59; Status DC Diphenhydramine HCl (Benadryl) 25 mg 1X PRN PRN IV ITCHING; Start 07/07/19 at 09:00; Stop 07/08/19 at 08:59; Status DC Diphenhydramine HCl (Benadryl) 25 mg 1X PRN PRN IV ITCHING; Start 07/07/19 at 09:00; Stop 07/08/19 at 08:59; Status DC Sodium Chloride 1,000 ml @ 400 mls/hr Q2H30M PRN IV PATENCY; Start 07/07/19 at 08:56; Stop 07/07/19 at 20:55; Status DC Info (PHARMACY MONITORING -- do not chart) 1 each PRN DAILY PRN MC SEE COMMENTS; Start 07/07/19 at 09:00; Status UNV Info (PHARMACY MONITORING -- do not chart) 1 each PRN DAILY PRN MC SEE COMMENTS; Start 07/07/19 at 09:00; Stop 07/08/19 at 08:13; Status DC Digoxin (Lanoxin) 500 mcg 1X ONCE IV Last administered on 07/07/19at 10:04; Start 07/07/19 at 10:00; Stop 07/07/19 at 10:01; Status DC Digoxin (Lanoxin) 125 mcg 1X ONCE IV Last administered on 07/07/19at 17:10; Start 07/07/19 at 18:00; Stop 07/07/19 at 18:01; Status DC Magnesium Sulfate 100 ml @ 25 mls/hr 1X ONCE IV Last administered on 07/07/19at 12:48; Start 07/07/19 at 13:00; Stop 07/07/19 at 16:59; Status DC Sodium Chloride 90 meq/Magnesium Sulfate 10 meq/ Calcium Gluconate 20 meq/ Mu ltivitamins 10 ml/Chromium/ Copper/Manganese/ Seleni/Zn 0.5 ml/ Total Parenteral Nutrition/Amino Acids/Dextrose/ Fat Emulsion Intravenous 1,512 ml @ 63 mls/hr TPN CONT IV Last administered on 07/07/19at 22:25; Start 07/07/19 at 22:00; Stop 07/08/19 at 21:59; Status DC Sodium Chloride 1,000 ml @ 1,000 mls/hr Q1H PRN IV hypotension; Start 07/08/19 at 08:05; Stop 07/08/19 at 14:04; Status DC Albumin Human 200 ml @ 200 mls/hr 1X ONCE IV Last administered on 07/08/19at 08:57; Start 07/08/19 at 08:15; Stop 07/08/19 at 09:14; Status DC Diphenhydramine HCl (Benadryl) 25 mg 1X PRN PRN IV ITCHING; Start 07/08/19 at 08:15; Stop 07/09/19 at 08:14; Status DC Diphenhydramine HCl (Benadryl) 25 mg 1X PRN PRN IV ITCHING; Start 07/08/19 at 08:15; Stop 07/09/19 at 08:14; Status DC Sodium Chloride 1,000 ml @ 400 mls/hr Q2H30M PRN IV PATENCY; Start 07/08/19 at 08:05; Stop 07/08/19 at 20:04; Status DC Info (PHARMACY MONITORING -- do not chart) 1 each PRN DAILY PRN MC SEE COMMENTS; Start 07/08/19 at 08:15; Stop 07/12/19 at 07:57; Status DC Sodium Chloride 90 meq/Potassium Chloride 15 meq/ Potassium Phosphate 10 mmol/ Magnesium Sulfate 10 meq/Calcium Gluconate 20 meq/ Multivitamins 10 ml/Chromium/ Copper/Manganese/ Seleni/Zn 0.5 ml/ Total Parenteral Nutrition/Amino Ac ids/Dextrose/ Fat Emulsion Intravenous 1,512 ml @ 63 mls/hr TPN CONT IV Last administered on 07/08/19at 21:01; Start 07/08/19 at 22:00; Stop 07/09/19 at 21:59; Status DC Potassium Chloride/Water 100 ml @ 100 mls/hr 1X ONCE IV Last administered on 07/08/19at 14:09; Start 07/08/19 at 14:00; Stop 07/08/19 at 14:59; Status DC Benzocaine (Hurricaine One) 1 spray 1X ONCE MM Last administered on 07/08/19at 16:38; Start 07/08/19 at 14:30; Stop 07/08/19 at 14:31; Status DC Lidocaine HCl (Glydo (Lidocaine) Jelly) 1 ramu 1X ONCE MM Last administered on 07/08/19at 16:38; Start 07/08/19 at 14:30; Stop 07/08/19 at 14:31; Status DC Linezolid/Dextrose 300 ml @ 300 mls/hr Q12HR IV Last administered on 07/14/19at 21:04; Start 07/08/19 at 20:00; Stop 07/15/19 at 07:50; Status DC Acetaminophen (Tylenol) 650 mg PRN Q6HRS PRN PO MILD PAIN / TEMP; Start 07/09/19 at 03:30; Stop 07/09/19 at 03:36; Status DC Acetaminophen (Tylenol) 650 mg PRN Q6HRS PRN PEG MILD PAIN / TEMP Last administered on 08/04/19at 19:56; Start 07/09/19 at 03:36; Stop 08/31/19 at 10:25; Status DC Sodium Chloride 1,000 ml @ 1,000 mls/hr Q1H PRN IV hypotension; Start 07/09/19 at 07:50; Stop 07/09/19 at 13:49; Status DC Albumin Human 200 ml @ 200 mls/hr 1X PRN PRN IV Hypotension; Start 07/09/19 at 08:00; Stop 07/09/19 at 13:59; Status DC Sodium Chloride (Normal Saline Flush) 10 ml 1X PRN PRN IV AP catheter pack; Start 07/09/19 at 08:00; Stop 07/10/19 at 07:59; Status DC Sodium Chloride (Normal Saline Flush) 10 ml 1X PRN PRN IV PUBLIC ADDRESS ANNOUNCER catheter pack; Start 07/09/19 at 08:00; Stop 07/10/19 at 07:59; Status DC Sodium Chloride 1,000 ml @ 400 mls/hr Q2H30M PRN IV PATENCY; Start 07/09/19 at 07:50; Stop 07/09/19 at 19:49; Status DC Info (PHARMACY MONITORING -- do not chart) 1 each PRN DAILY PRN MC SEE CO MMENTS; Start 07/09/19 at 08:00; Status UNV Info (PHARMACY MONITORING -- do not chart) 1 each PRN DAILY PRN MC SEE COMMENTS; Start 07/09/19 at 08:00; Stop 07/11/19 at 08:25; Status DC Sodium Chloride 90 meq/Potassium Chloride 15 meq/ Potassium Phosphate 10 mmol/ Magnesium Sulfate 10 meq/Calcium Gluconate 20 meq/ Multivitamins 10 ml/Chromium/ Copper/Manganese/ Seleni/Zn 0.5 ml/ Total Parenteral Nutrition/Amino Acids/Dextrose/ Fat Emulsion Intravenous 1,512 ml @ 63 mls/hr TPN CONT IV Last administered on 07/09/19at 20:57; Start 07/09/19 at 22:00; Stop 07/10/19 at 21:59; Status DC Sodium Chloride 90 meq/Potassium Chloride 15 meq/ Potassium Phosphate 15 mmol/ Magnesium Sulfate 10 meq/Calcium Gluconate 20 meq/ Multivitamins 10 ml/Chromium/ Copper/Manganese/ Seleni/Zn 0.5 ml/ Total Parenteral Nutrition/Amino Acids/Dextrose/ Fat Emulsion Intravenous 1,512 ml @ 63 mls/hr TPN CONT IV ; Start 07/10/19 at 22:00; Stop 07/10/19 at 14:16; Status DC Sodium Chloride 90 meq/Potassium Chloride 15 meq/ Potassium Phosphate 15 mmol/ Magnesium Sulfate 10 meq/Calcium Gluconate 20 meq/ Multivitamins 10 ml/Chromium/ Copper/Manganese/ Seleni/Zn 0.5 ml/ Total Parenteral Nutrition/Amino Acids/Dextrose/ Fat Emulsion Intravenous 1,200 ml @ 50 mls/hr TPN CONT IV ; Start 07/10/19 at 22:00; Stop 07/10/19 at 14:17; Status DC Sodium Chloride 90 meq/Potassium Chloride 15 meq/ Potassium Phosphate 10 mmol/ Magnesium Sulfate 10 meq/Calcium Gluconate 20 meq/ Multivitamins 10 ml/Chromium/ Copper/Manganese/ Seleni/Zn 0.5 ml/ Total Parenteral Nutrition/Amino Acids/Dextrose/ Fat Emulsion Intravenous 1,200 ml @ 50 mls/hr TPN CONT IV Last administered on 07/10/19at 23:29; Start 07/10/19 at 22:00; Stop 07/11/19 at 21:59; Status DC Sodium Chloride 1,000 ml @ 1,000 mls/hr Q1H PRN IV hypotension; Start 07/11/19 at 07:28; Stop 07/11/19 at 13:27; Status DC Albumin Human 200 ml @ 200 mls/hr 1X ONCE IV Last administered on 07/11/19at 08:51; Start 07/11/19 at 07:30; Stop 07/11/19 at 08:29; Status DC Diphenhydramine HCl (Benadryl) 25 mg 1X PRN PRN IV ITCHING; Start 07/11/19 at 07:30; Stop 07/12/19 at 07:29; Status DC Diphenhydramine HCl (Benadryl) 25 mg 1X PRN PRN IV ITCHING; Start 07/11/19 at 07:30; Stop 07/12/19 at 07:29; Status DC Sodium Chloride 1,000 ml @ 400 mls/hr Q2H30M PRN IV PATENCY; Start 07/11/19 at 07:28; Stop 07/11/19 at 19:27; Status DC Info (PHARMACY MONITORING -- do not chart) 1 each PRN DAILY PRN MC SEE COMMENTS; Start 07/11/19 at 07:30; Stop 07/22/19 at 13:01; Status DC Metronidazole 100 ml @ 100 mls/hr Q6HRS IV Last administered on 07/27/19at 06:26; Start 07/11/19 at 08:30; Stop 07/27/19 at 09:58; Status DC Micafungin Sodium 100 mg/Dextrose 100 ml @ 100 mls/hr Q24H IV Last administered on 08/18/19at 08:18; Start 07/11/19 at 09:00; Stop 08/18/19 at 20:58; Status DC Propofol 0 ml @ As Directed STK-MED ONCE IV ; Start 07/11/19 at 07:53; Stop 07/11/19 at 07:53; Status DC Etomidate (Amidate) 20 mg STK-MED ONCE IV ; Start 07/11/19 at 07:53; Stop 07/11/19 at 07:54; Status DC Midazolam HCl (Versed) 5 mg STK-MED ONCE .ROUTE ; Start 07/11/19 at 07:57; Stop 07/11/19 at 07:57; Status DC Fentanyl Citrate 30 ml @ 0 mls/hr CONT PRN IV SEE PROTOCOL Last administered on 08/05/19at 06:12; Start 07/11/19 at 08:15; Stop 08/05/19 at 09:19; Status DC Artificial Tears (Artificial Tears) 1 drop PRN Q1HR PRN OU DRY EYE, 1st choice; Start 07/11/19 at 08:15; Stop 08/17/19 at 05:31; Status DC Midazolam HCl 50 mg/Sodium Chloride 50 ml @ 0 mls/hr CONT PRN IV SEE PROTOCOL Last administered on 07/14/19at 22:39; Start 07/11/19 at 08:15; Stop 07/16/19 at 15:59; Status DC Etomidate (Amidate) 8 mg 1X ONCE IV Last administered on 07/11/19at 08:33; Start 07/11/19 at 08:30; Stop 07/11/19 at 08:31; Status DC Succinylcholine Chloride (Anectine) 120 mg 1X ONCE IV Last administered on 07/11/19at 08:34; Start 07/11/19 at 08:30; Stop 07/11/19 at 08:31; Status DC Midazolam HCl (Versed) 5 mg 1X ONCE IV ; Start 07/11/19 at 08:30; Stop 07/11/19 at 08:31; Status DC Potassium Chloride 15 meq/ Bicarbonate Dialysis Soln w/ out KCl 5,007.5 ml @ 1,000 mls/ hr Q5H1M IV Last administered on 07/12/19at 11:11; Start 07/11/19 at 12:00; Stop 07/12/19 at 11:15; Status DC Potassium Chloride 15 meq/ Bicarbonate Dialysis Soln w/ out KCl 5,007.5 ml @ 1,000 mls/ hr Q5H1M IV Last administered on 07/12/19at 11:12; Start 07/11/19 at 12:00; Stop 07/12/19 at 11:17; Status DC Potassium Chloride 15 meq/ Bicarbonate Dialysis Soln w/ out KCl 5,007.5 ml @ 1,000 mls/ hr Q5H1M IV Last administered on 07/12/19at 11:11; Start 07/11/19 at 12:00; Stop 07/12/19 at 11:19; Status DC Sodium Chloride 90 meq/Potassium Chloride 15 meq/ Potassium Phosphate 10 mmol/ Magnesium Sulfate 10 meq/Calcium Gluconate 20 meq/ Multivitamins 10 ml/Chromium/ Copper/Manganese/ Seleni/Zn 0.5 ml/ Total Parenteral Nutrition/Amino Acids/Dextrose/ Fat Emulsion Intravenous 1,400 ml @ 58.333 mls/ hr TPN CONT IV Last administered on 07/11/19at 21:42; Start 07/11/19 at 22:00; Stop 07/12/19 at 21:59; Status DC Heparin Sodium (Porcine) (Heparin Sodium) 5,000 unit Q8HRS SQ Last administered on 07/16/19at 05:55; Start 07/11/19 at 15:00; Stop 07/16/19 at 13:28; Status DC Meropenem 500 mg/ Sodium Chloride 50 ml @ 100 mls/hr Q6HRS IV Last administered on 07/13/19at 06:00; Start 07/12/19 at 09:00; Stop 07/13/19 at 07:29; Status DC Potassium Phosphate 20 mmol/ Sodium Chloride 106.6667 ml @ 51.667 m... 1X ONCE IV Last administered on 07/12/19at 11:22; Start 07/12/19 at 10:15; Stop 07/12/19 at 12:18; Status DC Acetaminophen (Tylenol Supp) 650 mg PRN Q6HRS PRN ND MILD PAIN / TEMP > 100.3'F Last administered on 10/06/19at 10:16; Start 07/12/19 at 10:30 Potassium Chloride/Water 100 ml @ 100 mls/hr Q1H IV Last administered on 07/12/19at 12:12; Start 07/12/19 at 11:00; Stop 07/12/19 at 12:59; Status DC Potassium Chloride 20 meq/ Bicarbonate Dialysis Soln w/ out KCl 5,010 ml @ 1,000 mls/hr Q5H1M IV Last administered on 07/13/19at 08:48; Start 07/12/19 at 12:00; Stop 07/13/19 at 13:03; Status DC Potassium Chloride 20 meq/ Bicarbonate Dialysis Soln w/ out KCl 5,010 ml @ 1,000 mls/hr Q5H1M IV Last administered on 07/17/19at 14:52; Start 07/12/19 at 11:30; Stop 07/17/19 at 19:59; Status DC Potassium Chloride 20 meq/ Bicarbonate Dialysis Soln w/ out KCl 5,010 ml @ 1,000 mls/hr Q5H1M IV Last administered on 07/17/19at 14:53; Start 07/12/19 at 11:30; Stop 07/17/19 at 19:59; Status DC Sodium Chloride 90 meq/Potassium Chloride 15 meq/ Potassium Phosphate 15 mmol/ Magnesium Sulfate 10 meq/Calcium Gluconate 15 meq/ Multivitamins 10 ml/Chromium/ Copper/Manganese/ Seleni/Zn 0.5 ml/ Total Parenteral Nutrition/Amino Acids/Dextrose/ Fat Emulsion Intravenous 1,400 ml @ 58.333 mls/ hr TPN CONT IV Last administered on 07/12/19at 22:17; Start 07/12/19 at 22:00; Stop 07/13/19 at 21:59; Status DC Cefepime HCl (Maxipime) 2 gm Q12HR IVP Last administered on 07/26/19at 20:56; Start 07/13/19 at 09:00; Stop 07/27/19 at 09:58; Status DC Daptomycin 500 mg/ Sodium Chloride 50 ml @ 100 mls/hr Q48H IV Last administered on 07/29/19at 09:57; Start 07/13/19 at 08:30; Stop 07/29/19 at 10:07; Status DC Lidocaine HCl (Buffered Lidocaine 1%) 3 ml 1X ONCE INJ Last administered on 07/13/19at 10:27; Start 07/13/19 at 10:30; Stop 07/13/19 at 10:31; Status DC Potassium Phosphate 20 mmol/ Sodium Chloride 106.6667 ml @ 51.667 m... 1X ONCE IV Last administered on 07/13/19at 12:51; Start 07/13/19 at 13:00; Stop 07/13/19 at 15:03; Status DC Sodium Chloride 90 meq/Potassium Chloride 15 meq/ Potassium Phosphate 18 mmol/ Magnesium Sulfate 8 meq/Calcium Gluconate 15 meq/ Multivitamins 10 ml/Chromium/ Copper/Manganese/ Seleni/Zn 0.5 ml/ Total Parenteral Nutrition/Amino Acids/Dext amarilis/ Fat Emulsion Intravenous 1,400 ml @ 58.333 mls/ hr TPN CONT IV Last administered on 07/13/19at 22:16; Start 07/13/19 at 22:00; Stop 07/14/19 at 21:59; Status DC Potassium Chloride 20 meq/ Bicarbonate Dialysis Soln w/ out KCl 5,010 ml @ 1,000 mls/hr Q5H1M IV Last administered on 07/17/19at 14:54; Start 07/13/19 at 16:00; Stop 07/17/19 at 19:59; Status DC Multi-Ingred Cream/Lotion/Oil/ Oint (Artificial Tears Eye Ointment) 1 ramu PRN Q1HR PRN OU DRY EYE, 2nd choice Last administered on 08/01/19at 08:19; Start 07/13/19 at 17:30; Stop 09/21/19 at 14:39; Status DC Sodium Chloride 90 meq/Potassium Chloride 15 meq/ Potassium Phosphate 18 mmol/ Magnesium Sulfate 8 meq/Calcium Gluconate 15 meq/ Multivitamins 10 ml/Chromium/ Copper/Manganese/ Seleni/Zn 0.5 ml/ Total Parenteral Nutrition/Amino Acids/Dextrose/ Fat Emulsion Intravenous 1,400 ml @ 58.333 mls/ hr TPN CONT IV Last administered on 07/14/19at 22:00; Start 07/14/19 at 22:00; Stop 07/15/19 at 21:59; Status DC Albumin Human 500 ml @ 125 mls/hr 1X ONCE IV ; Start 07/14/19 at 14:15; Stop 07/14/19 at 18:14; Status DC Sodium Chloride 90 meq/Potassium Chloride 15 meq/ Potassium Phosphate 18 mmol/ Magnesium Sulfate 8 meq/Calcium Gluconate 15 meq/ Multivitamins 10 ml/Chromium/ Copper/Manganese/ Seleni/Zn 0.5 ml/ Insulin Human Regular 10 unit/ Total Parenteral Nutrition/Amino Acids/Dextrose/ Fat Emulsion Intravenous 1,400 ml @ 58.333 mls/ hr TPN CONT IV Last administered on 07/15/19at 21:43; Start 07/15/19 at 22:00; Stop 07/16/19 at 21:59; Status DC Lidocaine HCl (Buffered Lidocaine 1%) 3 ml STK-MED ONCE .ROUTE ; Start 07/13/19 at 10:00; Stop 07/15/19 at 13:57; Status DC Midazolam HCl 100 mg/Sodium Chloride 100 ml @ 7 mls/hr CONT PRN IV SEE PROTOCOL Last administered on 07/27/19at 15:35; Start 07/16/19 at 16:00; Stop 09/21/19 at 14:38; Status DC Sodium Chloride 90 meq/Potassium Chloride 15 meq/ Potassium Phosphate 18 mmol/ Magnesium Sulfate 8 meq/Calcium Gluconate 15 meq/ Multivitamins 10 ml/Chromium/ Copper/Manganese/ Seleni/Zn 0.5 ml/ Insulin Human Regular 15 unit/ Total Parenteral Nutrition/Amino Acids/Dextrose/ Fat Emulsion Intravenous 1,400 ml @ 58.333 mls/ hr TPN CONT IV Last administered on 07/16/19at 20:34; Start 07/16/19 at 22:00; Stop 07/17/19 at 21:59; Status DC Info (Icu Electrolyte Protocol) 1 ea CONT PRN PRN MC PER PROTOCOL; Start 07/17/19 at 13:15 Sodium Chloride 90 meq/Potassium Chloride 15 meq/ Potassium Phosphate 18 mmol/ Magnesium Sulfate 8 meq/Calcium Gluconate 15 meq/ Multivitamins 10 ml/Chromium/ Copper/Manganese/ Seleni/Zn 0.5 ml/ Insulin Human Regular 15 unit/ Total Parenteral Nutrition/Amino Acids/Dextrose/ Fat Emulsion Intravenous 1,400 ml @ 58.333 mls/ hr TPN CONT IV Last administered on 07/17/19at 22:05; Start 07/17/19 at 22:00; Stop 07/18/19 at 21:59; Status DC Potassium Chloride 15 meq/ Bicarbonate Dialysis Soln w/ out KCl 5,007.5 ml @ 1,000 mls/ hr Q5H1M IV Last administered on 07/20/19at 18:14; Start 07/17/19 at 20:00; Stop 07/21/19 at 13:08; Status DC Potassium Chloride 15 meq/ Bicarbonate Dialysis Soln w/ out KCl 5,007.5 ml @ 1,000 mls/ hr Q5H1M IV Last administered on 07/20/19at 18:14; Start 07/17/19 at 20:00; Stop 07/21/19 at 13:08; Status DC Potassium Chloride 15 meq/ Bicarbonate Dialysis Soln w/ out KCl 5,007.5 ml @ 1,000 mls/ hr Q5H1M IV Last administered on 07/20/19at 18:14; Start 07/17/19 at 20:00; Stop 07/21/19 at 13:08; Status DC Iohexol (Omnipaque 240 Mg/ml) 30 ml 1X ONCE PO Last administered on 07/18/19at 11:30; Start 07/18/19 at 11:30; Stop 07/18/19 at 11:33; Status DC Info (CONTRAST GIVEN -- Rx MONITORING) 1 each PRN DAILY PRN MC SEE COMMENTS; Start 07/18/19 at 11:45; Stop 07/20/19 at 11:44; Status DC Sodium Chloride 90 meq/Potassium Chloride 15 meq/ Potassium Phosphate 18 mmol/ Magnesium Sulfate 8 meq/Calcium Gluconate 15 meq/ Multivitamins 10 ml/Chromium/ Copper/Manganese/ Seleni/Zn 0.5 ml/ Insulin Human Regular 15 unit/ Total Parenteral Nutrition/Amino Acids/Dextrose/ Fat Emulsion Intravenous 1,400 ml @ 58.333 mls/ hr TPN CONT IV Last administered on 07/18/19at 21:47; Start 07/18/19 at 22:00; Stop 07/19/19 at 21:59; Status DC Sodium Chloride 90 meq/Potassium Chloride 15 meq/ Potassium Phosphate 18 mmol/ Magnesium Sulfate 8 meq/Calcium Gluconate 15 meq/ Multivitamins 10 ml/Chromium/ Copper/Manganese/ Seleni/Zn 0.5 ml/ Insulin Human Regular 20 unit/ Total Parenteral Nutrition/Amino Acids/Dextrose/ Fat Emulsion Intravenous 1,400 ml @ 58.333 mls/ hr TPN CONT IV Last administered on 07/19/19at 21:36; Start 07/19/19 at 22:00; Stop 07/20/19 at 21:59; Status DC Alteplase, Recombinant (Cathflo For Central Catheter Clearance) 1 mg 1X ONCE INT CAT Last administered on 07/19/19at 20:03; Start 07/19/19 at 19:30; Stop 07/19/19 at 19:46; Status DC Alteplase, Recombinant (Cathflo For Central Catheter Clearance) 1 mg 1X ONCE INT CAT Last administered on 07/19/19at 22:05; Start 07/19/19 at 22:00; Stop 07/19/19 at 22:01; Status DC Sodium Chloride 90 meq/Potassium Chloride 15 meq/ Potassium Phosphate 18 mmol/ Magnesium Sulfate 8 meq/Calcium Gluconate 15 meq/ Multivitamins 10 ml/Chromium/ Copper/Manganese/ Seleni/Zn 0.5 ml/ Insulin Human Regular 20 unit/ Total Parenteral Nutrition/Amino Acids/Dextrose/ Fat Emulsion Intravenous 1,400 ml @ 58.333 mls/ hr TPN CONT IV Last administered on 07/20/19at 21:30; Start 07/20/19 at 22:00; Stop 07/21/19 at 21:59; Status DC Dexmedetomidine HCl 400 mcg/ Sodium Chloride 100 ml @ 0 mls/hr CONT PRN IV ANXIETY / AGITATION Last administered on 09/17/19at 12:57; Start 07/21/19 at 08:15; Stop 09/17/19 at 18:31; Status DC Sodium Chloride 500 ml @ 500 mls/hr 1X PRN PRN IV ELEVATED BP, SEE COMMENTS; Start 07/21/19 at 08:15 Atropine Sulfate (ATROPINE 0.5mg SYRINGE) 0.5 mg PRN Q5MIN PRN IV SEE COMMENTS; Start 07/21/19 at 08:15 Furosemide (Lasix) 20 mg 1X ONCE IVP Last administered on 07/21/19at 08:19; Start 07/21/19 at 08:15; Stop 07/21/19 at 08:16; Status DC Lidocaine HCl (Buffered Lidocaine 1%) 3 ml STK-MED ONCE .ROUTE ; Start 07/21/19 at 08:39; Stop 07/21/19 at 08:39; Status DC Lidocaine HCl (Buffered Lidocaine 1%) 6 ml 1X ONCE INJ Last administered on 07/21/19at 09:05; Start 07/21/19 at 09:00; Stop 07/21/19 at 09:06; Status DC Sodium Chloride 90 meq/Potassium Chloride 15 meq/ Potassium Phosphate 18 mmol/ Magnesium Sulfate 8 meq/Calcium Gluconate 15 meq/ Multivitamins 10 ml/Chromium/ Copper/Manganese/ Seleni/Zn 0.5 ml/ Insulin Human Regular 20 unit/ Total Parenteral Nutrition/Amino Acids/Dextrose/ Fat Emulsion Intravenous 1,400 ml @ 58.333 mls/ hr TPN CONT IV Last administered on 07/21/19at 22:45; Start 07/21/19 at 22:00; Stop 07/22/19 at 21:59; Status DC Sodium Chloride 1,000 ml @ 1,000 mls/hr Q1H PRN IV hypotension; Start 07/22/19 at 07:30; Stop 07/22/19 at 13:29; Status DC Albumin Human 200 ml @ 200 mls/hr 1X PRN PRN IV Hypotension Last administered on 07/22/19at 09:36; Start 07/22/19 at 07:30; Stop 07/22/19 at 13:29; Status DC Sodium Chloride (Normal Saline Flush) 10 ml 1X PRN PRN IV AP catheter pack; Start 07/22/19 at 07:30; Stop 07/22/19 at 21:29; Status DC Sodium Chloride (Normal Saline Flush) 10 ml 1X PRN PRN IV PUBLIC ADDRESS ANNOUNCER catheter pack; Start 07/22/19 at 07:30; Stop 07/23/19 at 07:29; Status DC Sodium Chloride 1,000 ml @ 400 mls/hr Q2H30M PRN IV PATENCY; Start 07/22/19 at 07:30; Stop 07/22/19 at 19:29; Status DC Info (PHARMACY MONITORING -- do not chart) 1 each PRN DAILY PRN MC SEE COMMENTS; Start 07/22/19 at 07:30; Stop 07/22/19 at 13:02; Status DC Info (PHARMACY MONITORING -- do not chart) 1 each PRN DAILY PRN MC SEE COMMENTS; Start 07/22/19 at 07:30; Stop 07/24/19 at 12:45; Status DC Sodium Chloride 90 meq/Potassium Chloride 15 meq/ Potassium Phosphate 10 mmol/ Magnesium Sulfate 8 meq/Calcium Gluconate 15 meq/ Multivitamins 10 ml/Chromium/ Copper/Manganese/ Seleni/Zn 0.5 ml/ Insulin Human Regular 25 unit/ Total Parenteral Nutrition/Amino Acids/Dextrose/ Fat Emulsion Intravenous 1,400 ml @ 58.333 mls/ hr TPN CONT IV Last administered on 07/22/19at 22:19; Start 07/22/19 at 22:00; Stop 07/23/19 at 21:59; Status DC Heparin Sodium (Porcine) (Heparin Sodium) 5,000 unit Q12HR SQ Last administered on 08/14/19at 08:59; Start 07/22/19 at 21:00; Stop 08/14/19 at 10:05; Status DC Ondansetron HCl (Zofran) 4 mg PRN Q6HRS PRN IV NAUSEA/VOMITING; Start 07/25/19 at 07:00; Stop 07/26/19 at 06:59; Status DC Fentanyl Citrate (Fentanyl 2ml Vial) 25 mcg PRN Q5MIN PRN IV MILD PAIN 1-3; Start 07/25/19 at 07:00; Stop 07/26/19 at 06:59; Status DC Fentanyl Citrate (Fentanyl 2ml Vial) 50 mcg PRN Q5MIN PRN IV MODERATE TO SEVERE PAIN; Start 07/25/19 at 07:00; Stop 07/26/19 at 06:59; Status DC Ringer's Solution 1,000 ml @ 30 mls/hr Q24H IV ; Start 07/25/19 at 07:00; Stop 07/25/19 at 18:59; Status DC Lidocaine HCl (Xylocaine-Mpf 1% 2ml Vial) 2 ml PRN 1X PRN ID PRIOR TO IV START; Start 07/25/19 at 07:00; Stop 07/26/19 at 06:59; Status DC Prochlorperazine Edisylate (Compazine) 5 mg PACU PRN PRN IV NAUSEA, MRX1; Start 07/25/19 at 07:00; Stop 07/26/19 at 06:59; Status DC Sodium Chloride 1,000 ml @ 1,000 mls/hr Q1H PRN IV hypotension; Start 07/23/19 at 09:10; Stop 07/23/19 at 15:09; Status DC Albumin Human 200 ml @ 200 mls/hr 1X PRN PRN IV Hypotension Last administered on 07/23/19at 10:10; Start 07/23/19 at 09:15; Stop 07/23/19 at 15:14; Status DC Sodium Chloride 1,000 ml @ 400 mls/hr Q2H30M PRN IV PATENCY; Start 07/23/19 at 09:10; Stop 07/23/19 at 21:09; Status DC Info (PHARMACY MONITORING -- do not chart) 1 each PRN DAILY PRN MC SEE COMMENTS; Start 07/23/19 at 09:15; Stop 07/24/19 at 12:45; Status DC Info (PHARMACY MONITORING -- do not chart) 1 each PRN DAILY PRN MC SEE COMMENTS; Start 07/23/19 at 09:15; Stop 07/24/19 at 12:45; Status DC Sodium Chloride 90 meq/Potassium Chloride 15 meq/ Potassium Phosphate 10 mmol/ Magnesium Sulfate 8 meq/Calcium Gluconate 15 meq/ Multivitamins 10 ml/Chromium/ Copper/Manganese/ Seleni/Zn 0.5 ml/ Insulin Human Regular 25 unit/ Total Janett ral Nutrition/Amino Acids/Dextrose/ Fat Emulsion Intravenous 1,400 ml @ 58.333 mls/ hr TPN CONT IV Last administered on 07/23/19at 22:10; Start 07/23/19 at 22:00; Stop 07/24/19 at 21:59; Status DC Magnesium Sulfate 50 ml @ 25 mls/hr PRN DAILY PRN IV for Mag < 1.7 on am labs Last administered on 10/06/19at 10:57; Start 07/24/19 at 09:15 Sodium Chloride 90 meq/Potassium Chloride 15 meq/ Potassium Phosphate 10 mmol/ Magnesium Sulfate 8 meq/Calcium Gluconate 15 meq/ Multivitamins 10 ml/Chromium/ Copper/Manganese/ Seleni/Zn 0.5 ml/ Insulin Human Regular 25 unit/ Total Parenteral Nutrition/Amino Acids/Dextrose/ Fat Emulsion Intravenous 1,400 ml @ 58.333 mls/ hr TPN CONT IV Last administered on 07/24/19at 21:20; Start 07/24/19 at 22:00; Stop 07/25/19 at 21:59; Status DC Sodium Chloride 1,000 ml @ 1,000 mls/hr Q1H PRN IV hypotension; Start 07/24/19 at 12:23; Stop 07/24/19 at 18:22; Status DC Albumin Human 200 ml @ 200 mls/hr 1X ONCE IV Last administered on 07/24/19at 13:34; Start 07/24/19 at 12:30; Stop 07/24/19 at 13:29; Status DC Diphenhydramine HCl (Benadryl) 25 mg 1X PRN PRN IV ITCHING; Start 07/24/19 at 12:30; Stop 07/25/19 at 12:29; Status DC Diphenhydramine HCl (Benadryl) 25 mg 1X PRN PRN IV ITCHING; Start 07/24/19 at 12:30; Stop 07/25/19 at 12:29; Status DC Info (PHARMACY MONITORING -- do not chart) 1 each PRN DAILY PRN MC SEE COMMENTS; Start 07/24/19 at 12:30; Status Cancel Bupivacaine HCl/ Epinephrine Bitart (Sensorcain-Epi 0.5%-1:[id number] Mpf) 30 ml STK-MED ONCE .ROUTE Last administered on 07/25/19at 11:44; Start 07/25/19 at 11:00; Stop 07/25/19 at 11:01; Status DC Cellulose (Surgicel Fibrillar 1x2) 1 each STK-MED ONCE .ROUTE ; Start 07/25/19 at 11:00; Stop 07/25/19 at 11:01; Status DC Sodium Chloride 90 meq/Potassium Chloride 15 meq/ Potassium Phosphate 10 mmol/ Magnesium Sulfate 12 meq/Calcium Gluconate 15 meq/ Multivitamins 10 ml/Chromium/ Copper/Manganese/ Seleni/Zn 0.5 ml/ Insulin Human Regular 25 unit/ Total Parenteral Nutrition/Amino Acids/Dextrose/ Fat Emulsion Intravenous 1,400 ml @ 58.333 mls/ hr TPN CONT IV Last administered on 07/25/19at 22:24; Start 07/25/19 at 22:00; Stop 07/26/19 at 21:59; Status DC Propofol 20 ml @ As Directed STK-MED ONCE IV ; Start 07/25/19 at 11:07; Stop 07/25/19 at 11:07; Status DC Cellulose (Surgicel Hemostat 4x8) 1 each STK-MED ONCE .ROUTE Last administered on 07/25/19at 11:44; Start 07/25/19 at 11:55; Stop 07/25/19 at 11:56; Status DC Sevoflurane (Ultane) 60 ml STK-MED ONCE IH ; Start 07/25/19 at 12:46; Stop 07/25/19 at 12:46; Status DC Sodium Chloride 1,000 ml @ 1,000 mls/hr Q1H PRN IV hypotension; Start 07/25/19 at 13:51; Stop 07/25/19 at 19:50; Status DC Albumin Human 200 ml @ 200 mls/hr 1X PRN PRN IV Hypotension Last administered on 07/25/19at 14:51; Start 07/25/19 at 14:00; Stop 07/25/19 at 19:59; Status DC Diphenhydramine HCl (Benadryl) 25 mg 1X PRN PRN IV ITCHING; Start 07/25/19 at 14:00; Stop 07/26/19 at 13:59; Status DC Diphenhydramine HCl (Benadryl) 25 mg 1X PRN PRN IV ITCHING; Start 07/25/19 at 14:00; Stop 07/26/19 at 13:59; Status DC Sodium Chloride 1,000 ml @ 400 mls/hr Q2H30M PRN IV PATENCY; Start 07/25/19 at 13:51; Stop 07/26/19 at 01:50; Status DC Info (PHARMACY MONITORING -- do not chart) 1 each PRN DAILY PRN MC SEE COMMENTS; Start 07/25/19 at 14:00; Stop 07/28/19 at 08:16; Status DC Heparin Sodium (Porcine) (Hep Lock Adult) 500 unit STK-MED ONCE IVP ; Start 07/26/19 at 09:29; Stop 07/26/19 at 09:30; Status DC Sodium Chloride 1,000 ml @ 1,000 mls/hr Q1H PRN IV hypotension; Start 07/26/19 at 10:43; Stop 07/26/19 at 16:42; Status DC Sodium Chloride 1,000 ml @ 400 mls/hr Q2H30M PRN IV PATENCY; Start 07/26/19 at 10:43; Stop 07/26/19 at 22:42; Status DC Info (PHARMACY MONITORING -- do not chart) 1 each PRN DAILY PRN MC SEE COMMENTS; Start 07/26/19 at 10:45; Status UNV Info (PHARMACY MONITORING -- do not chart) 1 each PRN DAILY PRN MC SEE COMMENTS; Start 07/26/19 at 10:45; Status UNV Sodium Chloride 90 meq/Potassium Chloride 15 meq/ Magnesium Sulfate 12 meq/Calcium Gluconate 15 meq/ Multivitamins 10 ml/Chromium/ Copper/Manganese/ Seleni/Zn 0.5 ml/ Insulin Human Regular 25 unit/ Total Parenteral Nutrition/Amino Acids/Dextrose/ Fat Emulsion Intravenous 1,400 ml @ 58.333 mls/ hr TPN CONT IV Last administered on 07/26/19at 22:13; Start 07/26/19 at 22:00; Stop 07/27/19 at 21:59; Status DC Sodium Chloride 1,000 ml @ 1,000 mls/hr Q1H PRN IV hypotension; Start 07/27/19 at 07:50; Stop 07/27/19 at 13:49; Status DC Albumin Human 200 ml @ 200 mls/hr 1X ONCE IV ; Start 07/27/19 at 08:00; Stop 07/27/19 at 08:53; Status DC Diphenhydramine HCl (Benadryl) 25 mg 1X PRN PRN IV ITCHING; Start 07/27/19 at 08:00; Stop 07/28/19 at 07:59; Status DC Diphenhydramine HCl (Benadryl) 25 mg 1X PRN PRN IV ITCHING; Start 07/27/19 at 0 8:00; Stop 07/28/19 at 07:59; Status DC Info (PHARMACY MONITORING -- do not chart) 1 each PRN DAILY PRN MC SEE COMMENTS; Start 07/27/19 at 08:00; Stop 07/28/19 at 08:16; Status DC Albumin Human 50 ml @ 50 mls/hr 1X ONCE IV ; Start 07/27/19 at 08:53; Stop 07/27/19 at 08:56; Status DC Albumin Human 200 ml @ 50 mls/hr PRN 1X PRN IV HYPOTENSION Last administered on 08/02/19at 11:54; Start 07/27/19 at 09:00; Stop 09/08/19 at 11:14; Status DC Meropenem 500 mg/ Sodium Chloride 50 ml @ 100 mls/hr Q12H IV Last administered on 08/16/19at 10:45; Start 07/27/19 at 10:00; Stop 08/16/19 at 12:37; Status DC Sodium Chloride 90 meq/Magnesium Sulfate 12 meq/ Calcium Gluconate 15 meq/ Multivitamins 10 ml/Chromium/ Copper/Manganese/ Seleni/Zn 0.5 ml/ Insulin Human Regular 25 unit/ Total Parenteral Nutrition/Amino Acids/Dextrose/ Fat Emulsion Intravenous 1,400 ml @ 58.333 mls/ hr TPN CONT IV Last administered on 07/27/19at 21:41; Start 07/27/19 at 22:00; Stop 07/28/19 at 21:59; Status DC Sodium Chloride 1,000 ml @ 1,000 mls/hr Q1H PRN IV hypotension; Start 07/28/19 at 07:58; Stop 07/28/19 at 13:57; Status DC Albumin Human 200 ml @ 200 mls/hr 1X PRN PRN IV Hypotension Last administered on 07/28/19at 09:30; Start 07/28/19 at 08:00; Stop 07/28/19 at 13:59; Status DC Sodium Chloride 1,000 ml @ 400 mls/hr Q2H30M PRN IV PATENCY; Start 07/28/19 at 07:58; Stop 07/28/19 at 19:57; Status DC Info (PHARMACY MONITORING -- do not chart) 1 each PRN DAILY PRN MC SEE COMMENTS; Start 07/28/19 at 08:00; Status Cancel Info (PHARMACY MONITORING -- do not chart) 1 each PRN DAILY PRN MC SEE COMMENTS; Start 07/28/19 at 08:15; Status UNV Sodium Chloride 90 meq/Potassium Phosphate 5 mmol/ Magnesium Sulfate 12 meq/Calcium Gluconate 15 meq/ Multivitamins 10 ml/Chromium/ Copper/Manganese/ Seleni/Zn 0.5 ml/ Insulin Human Regular 30 unit/ Total Parenteral Nutrition/Amino Acids/Dextrose/ Fat Emulsion Intravenous 1,400 ml @ 58.333 mls/ hr TPN CONT IV Last administered on 07/28/19at 22:08; Start 07/28/19 at 22:00; Stop 07/29/19 at 21:59; Status DC Linezolid/Dextrose 300 ml @ 300 mls/hr Q12HR IV Last administered on 08/08/19at 20:40; Start 07/29/19 at 11:00; Stop 08/09/19 at 08:10; Status DC Sodium Chloride 90 meq/Potassium Phosphate 15 mmol/ Magnesium Sulfate 12 meq/Calcium Gluconate 15 meq/ Multivitamins 10 ml/Chromium/ Copper/Manganese/ Seleni/Zn 0.5 ml/ Insulin Human Regular 30 unit/ Total Parenteral Nutrition/Amino Acids/Dextrose/ Fat Emulsion Intravenous 1,400 ml @ 58.333 mls/ hr TPN CONT IV Last administered on 07/29/19at 21:49; Start 07/29/19 at 22:00; Stop 07/30/19 at 21:59; Status DC Sodium Chloride 90 meq/Potassium Phosphate 15 mmol/ Magnesium Sulfate 12 meq/Calcium Gluconate 15 meq/ Multivitamins 10 ml/Chromium/ Copper/Manganese/ Seleni/Zn 0.5 ml/ Insulin Human Regular 40 unit/ Total Parenteral Nutri tion/Amino Acids/Dextrose/ Fat Emulsion Intravenous 1,400 ml @ 58.333 mls/ hr TPN CONT IV Last administered on 07/30/19at 21:21; Start 07/30/19 at 22:00; Stop 07/31/19 at 21:59; Status DC Sodium Chloride 1,000 ml @ 1,000 mls/hr Q1H PRN IV hypotension; Start 07/30/19 at 13:26; Stop 07/30/19 at 19:25; Status DC Albumin Human 200 ml @ 200 mls/hr 1X PRN PRN IV Hypotension Last administered on 07/30/19at 15:00; Start 07/30/19 at 13:30; Stop 07/30/19 at 19:29; Status DC Sodium Chloride (Normal Saline Flush) 10 ml 1X PRN PRN IV AP catheter pack; Start 07/30/19 at 13:30; Stop 07/31/19 at 13:29; Status DC Sodium Chloride (Normal Saline Flush) 10 ml 1X PRN PRN IV [employer]ESS [employer] catheter pack; Start 07/30/19 at 13:30; Stop 07/31/19 at 13:29; Status DC Sodium Chloride 1,000 ml @ 400 mls/hr Q2H30M PRN IV PATENCY; Start 07/30/19 at 13:26; Stop 07/31/19 at 01:25; Status DC Info (PHARMACY MONITORING -- do not chart) 1 each PRN DAILY PRN MC SEE COMMENTS; Start 07/30/19 at 13:30; Stop 07/30/19 at 13:33; Status DC Info (PHARMACY MONITORING -- do not chart) 1 each PRN DAILY PRN MC SEE COMMENTS; Start 07/30/19 at 13:30; Stop 07/30/19 at 13:34; Status DC Sodium Chloride 90 meq/Potassium Phosphate 19 mmol/ Magnesium Sulfate 12 meq/Calcium Gluconate 15 meq/ Multivitamins 10 ml/Chromium/ Copper/Manganese/ Seleni/Zn 0.5 ml/ Insulin Human Regular 40 unit/ Total Parenteral Nutrition/Amino Acids/Dextrose/ Fat Emulsion Intravenous 1,400 ml @ 58.333 mls/ hr TPN CONT IV Last administered on 07/31/19at 21:54; Start 07/31/19 at 22:00; Stop 08/01/19 at 21:59; Status DC Sodium Chloride 1,000 ml @ 1,000 mls/hr Q1H PRN IV hypotension; Start 08/01/19 at 09:35; Stop 08/01/19 at 15:34; Status DC Albumin Human 200 ml @ 200 mls/hr 1X PRN PRN IV Hypotension; Start 08/01/19 at 09:45; Stop 08/01/19 at 15:44; Status DC Diphenhydramine HCl (Benadryl) 25 mg 1X PRN PRN IV ITCHING; Start 08/01/19 at 09:45; Stop 08/02/19 at 09:44; Status DC Diphenhydramine HCl (Benadryl) 25 mg 1X PRN PRN IV ITCHING; Start 08/01/19 at 09:45; Stop 08/02/19 at 09:44; Status DC Sodium Chloride 1,000 ml @ 400 mls/hr Q2H30M PRN IV PATENCY; Start 08/01/19 at 09:35; Stop 08/01/19 at 21:34; Status DC Info (PHARMACY MONITORING -- do not chart) 1 each PRN DAILY PRN MC SEE COMMENTS; Start 08/01/19 at 09:45; Status Cancel Sodium Chloride 100 meq/Potassium Phosphate 19 mmol/ Magnesium Sulfate 12 meq/Calcium Gluconate 15 meq/ Multivitamins 10 ml/Chromium/ Copper/Manganese/ Seleni/Zn 0.5 ml/ Insulin Human Regular 40 unit/ Potassium Chloride 20 meq/ Total Parenteral Nutrition/Amino Acids/Dextrose/ Fat Emulsion Intravenous 1,400 ml @ 58.333 mls/ hr TPN CONT IV Last administered on 08/01/19at 22:02; Start 08/01/19 at 22:00; Stop 08/02/19 at 21:59; Status DC Furosemide (Lasix) 40 mg 1X ONCE IVP Last administered on 08/01/19at 14:39; Start 08/01/19 at 14:30; Stop 08/01/19 at 14:31; Status DC Metronidazole 100 ml @ 100 mls/hr Q8HRS IV Last administered on 08/09/19at 06:04; Start 08/02/19 at 10:00; Stop 08/09/19 at 08:10; Status DC Sodium Chloride 1,000 ml @ 1,000 mls/hr Q1H PRN IV hypotension; Start 08/02/19 at 08:00; Stop 08/02/19 at 13:59; Status DC Albumin Human 200 ml @ 200 mls/hr 1X PRN PRN IV Hypotension; Start 08/02/19 at 08:00; Stop 08/02/19 at 13:59; Status DC Sodium Chloride 1,000 ml @ 400 mls/hr Q2H30M PRN IV PATENCY; Start 08/02/19 at 08:00; Stop 08/02/19 at 19:59; Status DC Info (PHARMACY MONITORING -- do not chart) 1 each PRN DAILY PRN MC SEE COMMENTS; Start 08/02/19 at 11:30; Status UNV Info (PHARMACY MONITORING -- do not chart) 1 each PRN DAILY PRN MC SEE COMMENTS; Start 08/02/19 at 11:30; Stop 08/04/19 at 12:13; Status DC Sodium Chloride 100 meq/Potassium Phosphate 19 mmol/ Magnesium Sulfate 12 meq/Calcium Gluconate 15 meq/ Multivitamins 10 ml/Chromium/ Copper/Manganese/ Seleni/Zn 0.5 ml/ Insulin Human Regular 40 unit/ Potassium Chloride 20 meq/ Total Parenteral Nutrition/Amino Acids/Dextrose/ Fat Emulsion Intravenous 1,400 ml @ 58.333 mls/ hr TPN CONT IV Last administered on 08/02/19at 21:52; Start 08/02/19 at 22:00; Stop 08/03/19 at 21:59; Status DC Sodium Chloride (Normal Saline Flush) 10 ml QSHIFT PRN IV AFTER MEDS AND BLOOD DRAWS; Start 08/02/19 at 15:00; Stop 08/30/19 at 11:27; Status DC Sodium Chloride (Normal Saline Flush) 10 ml PRN Q5MIN PRN IV AFTER MEDS AND BLOOD DRAWS; Start 08/02/19 at 15:00 Sodium Chloride (Normal Saline Flush) 20 ml PRN Q5MIN PRN IV AFTER MEDS AND BLOOD DRAWS; Start 08/02/19 at 15:00 Sodium Chloride 100 meq/Potassium Phosphate 19 mmol/ Magnesium Sulfate 12 meq/Calcium Gluconate 15 meq/ Multivitamins 10 ml/Chromium/ Copper/Manganese/ Seleni/Zn 0.5 ml/ Insulin Human Regular 40 unit/ Potassium Chloride 20 meq/ Total Parenteral Nutrition/Amino Acids/Dextrose/ Fat Emulsion Intravenous 1,400 ml @ 58.333 mls/ hr TPN CONT IV Last administered on 08/03/19at 21:20; Start 08/03/19 at 22:00; Stop 08/04/19 at 21:59; Status DC Lidocaine HCl (Buffered Lidocaine 1%) 3 ml STK-MED ONCE .ROUTE ; Start 08/03/19 at 13:16; Stop 08/03/19 at 13:16; Status DC Lidocaine HCl (Buffered Lidocaine 1%) 6 ml 1X ONCE INJ Last administered on 08/03/19at 13:45; Start 08/03/19 at 13:30; Stop 08/03/19 at 13:31; Status DC Albumin Human 100 ml @ 100 mls/hr 1X ONCE IV Last administered on 08/03/19at 15:41; Start 08/03/19 at 15:00; Stop 08/03/19 at 15:59; Status DC Albumin Human 50 ml @ 50 mls/hr 1X ONCE IV Last administered on 08/03/19at 15:00; Start 08/03/19 at 15:00; Stop 08/03/19 at 15:59; Status DC Info (PHARMACY MONITORING -- do not chart) 1 each PRN DAILY PRN MC SEE COMMENTS; Start 08/04/19 at 11:30; Status Cancel Info (PHARMACY MONITORING -- do not chart) 1 each PRN DAILY PRN MC SEE COMMENTS; Start 08/04/19 at 11:30; Status UNV Sodium Chloride 100 meq/Potassium Phosphate 10 mmol/ Magnesium Sulfate 12 meq/Calcium Gluconate 15 meq/ Multivitamins 10 ml/Chromium/ Copper/Manganese/ Seleni/Zn 0.5 ml/ Insulin Human Regular 35 unit/ Potassium Chloride 20 meq/ Total Parenteral Nutrition/Amino Acids/Dextrose/ Fat Emulsion Intravenous 1,400 ml @ 58.333 mls/ hr TPN CONT IV Last administered on 08/04/19at 22:10; Start 08/04/19 at 22:00; Stop 08/05/19 at 21:59; Status DC Sodium Chloride 100 meq/Potassium Phosphate 5 mmol/ Magnesium Sulfate 12 meq/Calcium Gluconate 15 meq/ Multivitamins 10 ml/Chromium/ Copper/Manganese/ Seleni/Zn 0.5 ml/ Insulin Human Regular 35 unit/ Potassium Chloride 20 meq/ Total Parenteral Nutrition/Amino Acids/Dextrose/ Fat Emulsion Intravenous 1,400 ml @ 58.333 mls/ hr TPN CONT IV Last administered on 08/05/19at 22:59; Start 08/05/19 at 22:00; Stop 08/06/19 at 21:59; Status DC Sodium Chloride 1,000 ml @ 1,000 mls/hr Q1H PRN IV hypotension; Start 08/06/19 at 08:27; Stop 08/06/19 at 14:26; Status DC Albumin Human 200 ml @ 200 mls/hr 1X PRN PRN IV Hypotension Last administered on 08/06/19at 09:18; Start 08/06/19 at 08:30; Stop 08/06/19 at 14:29; Status DC Sodium Chloride 1,000 ml @ 400 mls/hr Q2H30M PRN IV PATENCY; Start 08/06/19 at 08:27; Stop 08/06/19 at 20:26; Status DC Info (PHARMACY MONITORING -- do not chart) 1 each PRN DAILY PRN MC SEE COMMENTS; Start 08/06/19 at 08:30; Status Cancel Info (PHARMACY MONITORING -- do not chart) 1 each PRN DAILY PRN MC SEE COMMENTS; Start 08/06/19 at 08:30; Stop 08/14/19 at 13:10; Status DC Sodium Chloride 100 meq/Potassium Chloride 40 meq/ Magnesium Sulfate 15 meq/Calcium Gluconate 15 meq/ Multivitamins 10 ml/Chromium/ Copper/Manganese/ Seleni/Zn 0.5 ml/ Insulin Human Regular 35 unit/ Total Parenteral Nutrition/Amino Acids/Dextrose/ Fat Emulsion Intravenous 1,400 ml @ 58.333 mls/ hr TPN CONT IV Last administered on 08/06/19at 22:00; Start 08/06/19 at 22:00; Stop 08/07/19 at 21:59; Status DC Potassium Chloride/Water 100 ml @ 100 mls/hr 1X ONCE IV Last administered on 08/06/19at 17:28; Start 08/06/19 at 14:45; Stop 08/06/19 at 15:44; Status DC Sodium Chloride 100 meq/Potassium Chloride 40 meq/ Magnesium Sulfate 15 meq/Calcium Gluconate 15 meq/ Multivitamins 10 ml/Chromium/ Copper/Manganese/ Seleni/Zn 0.5 ml/ Insulin Human Regular 35 unit/ Total Parenteral Nutri tion/Amino Acids/Dextrose/ Fat Emulsion Intravenous 1,400 ml @ 58.333 mls/ hr TPN CONT IV Last administered on 08/07/19at 22:46; Start 08/07/19 at 22:00; Stop 08/08/19 at 21:59; Status DC Sodium Chloride 100 meq/Potassium Chloride 40 meq/ Magnesium Sulfate 20 meq/Calcium Gluconate 15 meq/ Multivitamins 10 ml/Chromium/ Copper/Manganese/ Seleni/Zn 0.5 ml/ Insulin Human Regular 35 unit/ Total Parenteral Nutrition/Amino Acids/Dextrose/ Fat Emulsion Intravenous 1,400 ml @ 58.333 mls/ hr TPN CONT IV Last administered on 08/08/19at 22:31; Start 08/08/19 at 22:00; Stop 08/09/19 at 21:59; Status DC Fentanyl Citrate (Fentanyl 2ml Vial) 50 mcg PRN Q2HR PRN IVP PAIN Last administered on 08/15/19at 13:32; Start 08/08/19 at 21:00; Stop 08/16/19 at 12:53; Status DC Fentanyl Citrate (Fentanyl 2ml Vial) 25 mcg PRN Q2HR PRN IVP PAIN; Start 08/08/19 at 21:00; Stop 08/16/19 at 12:54; Status DC Enoxaparin Sodium (Lovenox 100mg Syringe) 100 mg Q12HR SQ ; Start 08/09/19 at 21:00; Status UNV Amino Acids/ Glycerin/ Electrolytes 1,000 ml @ 75 mls/hr [id number] IV ; Start 08/08/19 at 21:15; Status UNV Sodium Chloride 1,000 ml @ 1,000 mls/hr Q1H PRN IV hypotension; Start 08/09/19 at 07:56; Stop 08/09/19 at 13:55; Status DC Albumin Human 200 ml @ 200 mls/hr 1X PRN PRN IV Hypotension Last administered on 08/09/19at 08:40; Start 08/09/19 at 08:00; Stop 08/09/19 at 13:59; Status DC Sodium Chloride 1,000 ml @ 400 mls/hr Q2H30M PRN IV PATENCY; Start 08/09/19 at 07:56; Stop 08/09/19 at 19:55; Status DC Info (PHARMACY MONITORING -- do not chart) 1 each PRN DAILY PRN MC SEE COMMENTS; Start 08/09/19 at 08:00; Status UNV Info (PHARMACY MONITORING -- do not chart) 1 each PRN DAILY PRN MC SEE COMMENTS; Start 08/09/19 at 08:00; Status UNV Daptomycin 430 mg/ Sodium Chloride 50 ml @ 100 mls/hr Q24H IV Last administered on 08/09/19at 12:35; Start 08/09/19 at 09:00; Stop 08/09/19 at 12:49; Status DC Sodium Chloride 100 meq/Potassium Chloride 40 meq/ Magnesium Sulfate 20 meq/Calcium Gluconate 15 meq/ Multivitamins 10 ml/Chromium/ Copper/Manganese/ Seleni/Zn 0.5 ml/ Insulin Human Regular 35 unit/ Total Parenteral Nutrition/Amino Acids/Dextrose/ Fat Emulsion Intravenous 1,400 ml @ 58.333 mls/ hr TPN CONT IV Last administered on 08/09/19at 21:26; Start 08/09/19 at 22:00; Stop 08/10/19 at 21:59; Status DC Daptomycin 430 mg/ Sodium Chloride 50 ml @ 100 mls/hr Q48H IV ; Start 08/11/19 at 09:00; Stop 08/10/19 at 11:55; Status DC Sodium Chloride 100 meq/Potassium Chloride 40 meq/ Magnesium Sulfate 20 meq/Calcium Gluconate 15 meq/ Multivitamins 10 ml/Chromium/ Copper/Manganese/ Seleni/Zn 0.5 ml/ Insulin Human Regular 35 unit/ Total Parenteral Nutrition/Amino Acids/Dextrose/ Fat Emulsion Intravenous 1,400 ml @ 58.333 mls/ hr TPN CONT IV Last administered on 08/10/19at 22:27; Start 08/10/19 at 22:00; Stop 08/11/19 at 21:59; Status DC Daptomycin 430 mg/ Sodium Chloride 50 ml @ 100 mls/hr Q24H IV Last administered on 08/12/19at 15:07; Start 08/10/19 at 13:00; Stop 08/13/19 at 13:15; Status DC Sodium Chloride 100 meq/Potassium Chloride 40 meq/ Magnesium Sulfate 20 meq/Calcium Gluconate 10 meq/ Multivitamins 10 ml/Chromium/ Copper/Manganese/ Seleni/Zn 0.5 ml/ Insulin Human Regular 35 unit/ Total Parenteral Nutrition/Amino Acids/Dextrose/ Fat Emulsion Intravenous 1,400 ml @ 58.333 mls/ hr TPN CONT IV Last administered on 08/12/19at 00:06; Start 08/11/19 at 22:00; Stop 08/12/19 at 21:59; Status DC Alteplase, Recombinant (Cathflo For Central Catheter Clearance) 1 mg 1X ONCE INT CAT Last administered on 08/12/19at 11:44; Start 08/12/19 at 10:45; Stop 08/12/19 at 10:46; Status DC Ondansetron HCl (Zofran) 4 mg PRN Q6HRS PRN IV NAUSEA/VOMITING; Start 08/15/19 at 07:00; Stop 08/16/19 at 06:59; Status DC Fentanyl Citrate (Fentanyl 2ml Vial) 25 mcg PRN Q5MIN PRN IV MILD PAIN 1-3; Start 08/15/19 at 07:00; Stop 08/16/19 at 06:59; Status DC Fentanyl Citrate (Fentanyl 2ml Vial) 50 mcg PRN Q5MIN PRN IV MODERATE TO SEVERE PAIN Last administered on 08/15/19at 10:17; Start 08/15/19 at 07:00; Stop 08/16/19 at 06:59; Status DC Ringer's Solution 1,000 ml @ 30 mls/hr Q24H IV ; Start 08/15/19 at 07:00; Stop 08/15/19 at 18:59; Status DC Lidocaine HCl (Xylocaine-Mpf 1% 2ml Vial) 2 ml PRN 1X PRN ID PRIOR TO IV START; Start 08/15/19 at 07:00; Stop 08/16/19 at 06:59; Status DC Prochlorperazine Edisylate (Compazine) 5 mg PACU PRN PRN IV NAUSEA, MRX1; Start 08/15/19 at 07:00; Stop 08/16/19 at 06:59; Status DC Sodium Acetate 50 meq/Potassium Acetate 55 meq/ Magnesium Sulfate 20 meq/Calcium Gluconate 10 meq/ Multivitamins 10 ml/Chromium/ Copper/Manganese/ Seleni/Zn 0.5 ml/ Insulin Human Regular 35 unit/ Total Parenteral Nutrition/Amino Acids/Dextrose/ Fat Emulsion Intravenous 1,400 ml @ 58.333 mls/ hr TPN CONT IV ; Start 08/12/19 at 22:00; Stop 08/12/19 at 14:15; Status DC Sodium Acetate 50 meq/Potassium Acetate 55 meq/ Magnesium Sulfate 20 meq/Calcium Gluconate 10 meq/ Multivitamins 10 ml/Chromium/ Copper/Manganese/ Seleni/Zn 0.5 ml/ Insulin Human Regular 35 unit/ Total Parenteral Nutrition/Amino Acids/Dextrose/ Fat Emulsion Intravenous 1,800 ml @ 75 mls/hr TPN CONT IV Last administered on 08/12/19at 22:38; Start 08/12/19 at 22:00; Stop 08/13/19 at 21:59; Status DC Sodium Chloride 1,000 ml @ 1,000 mls/hr Q1H PRN IV hypotension; Start 08/12/19 at 15:31; Stop 08/12/19 at 21:30; Status DC Diphenhydramine HCl (Benadryl) 25 mg 1X PRN PRN IV ITCHING; Start 08/12/19 at 15:45; Stop 08/13/19 at 15:44; Status DC Diphenhydramine HCl (Benadryl) 25 mg 1X PRN PRN IV ITCHING; Start 08/12/19 at 15:45; Stop 08/13/19 at 15:44; Status DC Sodium Chloride 1,000 ml @ 400 mls/hr Q2H30M PRN IV PATENCY; Start 08/12/19 at 15:31; Stop 08/13/19 at 03:30; Status DC Info (PHARMACY MONITORING -- do not chart) 1 each PRN DAILY PRN MC SEE COMMENTS; Start 08/12/19 at 15:45; Stop 09/13/19 at 14:14; Status DC Sodium Acetate 50 meq/Potassium Acetate 55 meq/ Magnesium Sulfate 20 meq/Calcium Gluconate 10 meq/ Multivitamins 10 ml/Chromium/ Copper/Manganese/ Seleni/Zn 0.5 ml/ Insulin Human Regular 35 unit/ Total Parenteral Nutrition/Amino Acids/Dextrose/ Fat Emulsion Intravenous 1,800 ml @ 75 mls/hr TPN CONT IV Last administered on 08/13/19at 22:03; Start 08/13/19 at 22:00; Stop 08/14/19 at 21:59; Status DC Daptomycin 430 mg/ Sodium Chloride 50 ml @ 100 mls/hr Q24H IV Last administered on 08/18/19at 13:00; Start 08/13/19 at 13:00; Stop 08/18/19 at 20:58; Status DC Heparin Sodium (Porcine) 1000 unit/Sodium Chloride 1,001 ml @ 1,001 mls/hr 1X ONCE IRR ; Start 08/15/19 at 06:00; Stop 08/15/19 at 06:59; Status DC Potassium Acetate 55 meq/Magnesium Sulfate 20 meq/ Calcium Gluconate 10 meq/ Multivitamins 10 ml/Chromium/ Copper/Manganese/ Seleni/Zn 0.5 ml/ Insulin Human Regular 35 unit/ Total Parenteral Nutrition/Amino Acids/Dextrose/ Fat Emulsion Intravenous 1,920 ml @ 80 mls/hr TPN CONT IV Last administered on 08/14/19at 22:10; Start 08/14/19 at 22:00; Stop 08/15/19 at 21:59; Status DC Dexamethasone Sodium Phosphate (Decadron) 4 mg STK-MED ONCE .ROUTE ; Start 08/15/19 at 10:56; Stop 08/15/19 at 10:57; Status DC Ondansetron HCl (Zofran) 4 mg STK-MED ONCE .ROUTE ; Start 08/15/19 at 10:56; Stop 08/15/19 at 10:57; Status DC Rocuronium [place] (Zemuron) 50 mg STK-MED ONCE .ROUTE ; Start 08/15/19 at 10:56; Stop 08/15/19 at 10:57; Status DC Fentanyl Citrate (Fentanyl 2ml Vial) 100 mcg STK-MED ONCE .ROUTE ; Start 08/15/19 at 10:56; Stop 08/15/19 at 10:57; Status DC Bupivacaine HCl/ Epinephrine Bitart (Sensorcain-Epi 0.5%-1:[id number] Mpf) 30 ml STK-MED ONCE .ROUTE Last administered on 08/15/19at 12:01; Start 08/15/19 at 10:58; Stop 08/15/19 at 10:58; Status DC Cellulose (Surgicel Hemostat 2x14) 1 each STK-MED ONCE .ROUTE ; Start 08/15/19 at 10:58; Stop 08/15/19 at 10:59; Status DC Iohexol (Omnipaque 300 Mg/ml) 50 ml STK-MED ONCE .ROUTE ; Start 08/15/19 at 10:58; Stop 08/15/19 at 10:59; Status DC Cellulose (Surgicel Hemostat 4x8) 1 each STK-MED ONCE .ROUTE ; Start 08/15/19 at 10:58; Stop 08/15/19 at 10:59; Status DC Bisacodyl (Dulcolax Supp) 10 mg STK-MED ONCE .ROUTE ; Start 08/15/19 at 10:59; Stop 08/15/19 at 10:59; Status DC Heparin Sodium (Porcine) 1000 unit/Sodium Chloride 1,001 ml @ 1,001 mls/hr 1X ONCE IRR ; Start 08/15/19 at 12:00; Stop 08/15/19 at 12:59; Status DC Propofol 20 ml @ As Directed STK-MED ONCE IV ; Start 08/15/19 at 11:05; Stop 08/15/19 at 11:05; Status DC Sevoflurane (Ultane) 90 ml STK-MED ONCE IH ; Start 08/15/19 at 11:05; Stop 08/15/19 at 11:05; Status DC Sevoflurane (Ultane) 60 ml STK-MED ONCE IH ; Start 08/15/19 at 12:26; Stop 08/15/19 at 12:27; Status DC Propofol 20 ml @ As Directed STK-MED ONCE IV ; Start 08/15/19 at 12:26; Stop 08/15/19 at 12:27; Status DC Phenylephrine HCl (PHENYLEPHRINE in 0.9% NACL PF) 1 mg STK-MED ONCE IV ; Start 08/15/19 at 12:34; Stop 08/15/19 at 12:34; Status DC Heparin Sodium (Porcine) (Heparin Sodium) 5,000 unit Q12HR SQ Last administered on 08/24/19at 20:57; Start 08/15/19 at 21:00; Stop 08/25/19 at 09:59; Status DC Sodium Chloride (Normal Saline Flush) 3 ml QSHIFT PRN IV AFTER MEDS AND BLOOD DRAWS; Start 08/15/19 at 13:45 Naloxone HCl (Narcan) 0.4 mg PRN Q2MIN PRN IV SEE INSTRUCTIONS Last administered on 09/24/19at 15:15; Start 08/15/19 at 13:45 Sodium Chloride 1,000 ml @ 25 mls/hr Q24H IV Last administered on 09/13/19at 13:37; Start 08/15/19 at 13:37; Stop 09/16/19 at 13:09; Status DC Naloxone HCl (Narcan) 0.4 mg PRN Q2MIN PRN IV SEE INSTRUCTIONS; Start 08/15/19 at 14:30; Status UNV Sodium Chloride 1,000 ml @ 25 mls/hr Q24H IV ; Start 08/15/19 at 14:30; Status UNV Hydromorphone HCl 30 ml @ 0 mls/hr CONT PRN PRN IV PER PROTOCOL Last administered on 08/20/19at 16:08; Start 08/15/19 at 14:30; Stop 08/22/19 at 08:55; Status DC Potassium Acetate 55 meq/Magnesium Sulfate 20 meq/ Calcium Gluconate 10 meq/ Multivitamins 10 ml/Chromium/ Copper/Manganese/ Seleni/Zn 0.5 ml/ Insulin Human Regular 35 unit/ Total Parenteral Nutrition/Amino Acids/Dextrose/ Fat Emulsion Intravenous 1,920 ml @ 80 mls/hr TPN CONT IV Last administered on 08/15/19at 22:01; Start 08/15/19 at 22:00; Stop 08/16/19 at 21:59; Status DC Bumetanide (Bumex) 2 mg [id number] IV Last administered on 08/19/19at 13:50; Start 08/16/19 at 14:00; Stop 08/20/19 at 14:10; Status DC Meropenem 1 gm/ Sodium Chloride 100 ml @ 200 mls/hr Q8HRS IV Last administered on 09/09/19at 05:53; Start 08/16/19 at 14:00; Stop 09/09/19 at 09:31; Status DC Potassium Acetate 55 meq/Magnesium Sulfate 20 meq/ Calcium Gluconate 10 meq/ Multivitamins 10 ml/Chromium/ Copper/Manganese/ Seleni/Zn 0.5 ml/ Insulin Human Regular 35 unit/ Total Parenteral Nutrition/Amino Acids/Dextrose/ Fat Emulsion Intravenous 1,920 ml @ 80 mls/hr TPN CONT IV Last administered on 08/16/19at 22:02; Start 08/16/19 at 22:00; Stop 08/17/19 at 21:59; Status DC Hydromorphone HCl (Dilaudid Standard SOILS TECHNICIAN) 12 mg STK-MED ONCE IV ; Start 08/15/19 at 14:35; Stop 08/16/19 at 13:53; Status DC Artificial Tears (Artificial Tears) 1 drop PRN Q15MIN PRN OU DRY EYE Last administered on 10/11/19at 21:17; Start 08/17/19 at 05:30 Hydromorphone HCl (Dilaudid Standard SOILS TECHNICIAN) 12 mg STK-MED ONCE IV ; Start 08/16/19 at 12:05; Stop 08/17/19 at 09:15; Status DC Potassium Acetate 65 meq/Magnesium Sulfate 20 meq/ Calcium Gluconate 10 meq/ Multivitamins 10 ml/Chromium/ Copper/Manganese/ Seleni/Zn 0.5 ml/ Insulin Human Regular 30 unit/ Total Parenteral Nutrition/Amino Acids/Dextrose/ Fat Emulsion Intravenous 1,920 ml @ 80 mls/hr TPN CONT IV Last administered on 08/17/19at 22:22; Start 08/17/19 at 22:00; Stop 08/18/19 at 21:59; Status DC Cyclobenzaprine HCl (Flexeril) 10 mg PRN Q6HRS PRN PO MUSCLE SPASMS; Start 08/18/19 at 10:45 Potassium Acetate 55 meq/Magnesium Sulfate 20 meq/ Calcium Gluconate 10 meq/ Multivitamins 10 ml/Chromium/ Copper/Manganese/ Seleni/Zn 0.5 ml/ Insulin Human Regular 30 unit/ Total Parenteral Nutrition/Amino Acids/Dextrose/ Fat Emulsion Intravenous 1,920 ml @ 80 mls/hr TPN CONT IV Last administered on 08/19/19at 01:00; Start 08/18/19 at 22:00; Stop 08/19/19 at 21:59; Status DC Magnesium Sulfate 50 ml @ 25 mls/hr 1X ONCE IV Last administered on 08/18/19at 17:18; Start 08/18/19 at 12:45; Stop 08/18/19 at 14:44; Status DC Potassium Chloride/Water 100 ml @ 100 mls/hr 1X ONCE IV Last administered on 08/19/19at 11:27; Start 08/19/19 at 12:00; Stop 08/19/19 at 12:59; Status DC Hydromorphone HCl (Dilaudid Standard SOILS TECHNICIAN) 12 mg STK-MED ONCE IV ; Start 08/17/19 at 10:50; Stop 08/19/19 at 11:02; Status DC Hydromorphone HCl (Dilaudid Standard SOILS TECHNICIAN) 12 mg STK-MED ONCE IV ; Start 08/18/19 at 13:47; Stop 08/19/19 at 11:03; Status DC Potassium Acetate 30 meq/Magnesium Sulfate 20 meq/ Calcium Gluconate 10 meq/ Multivitamins 10 ml/Chromium/ Copper/Manganese/ Seleni/Zn 0.5 ml/ Insulin Human Regular 30 unit/ Potassium Chloride 30 meq/ Total Parenteral Nutrition/Amino Acids/Dextrose/ Fat Emulsion Intravenous 1,920 ml @ 80 mls/hr TPN CONT IV Last administered on 08/19/19at 22:34; Start 08/19/19 at 22:00; Stop 08/20/19 at 21:59; Status DC Potassium Chloride/Water 100 ml @ 100 mls/hr Q1H IV Last administered on 08/20/19at 13:05; Start 08/20/19 at 07:00; Stop 08/20/19 at 10:59; Status DC Magnesium Sulfate 50 ml @ 25 mls/hr 1X ONCE IV Last administered on 08/20/19at 10:34; Start 08/20/19 at 10:30; Stop 08/20/19 at 12:29; Status DC Potassium Chloride 75 meq/ Magnesium Sulfate 20 meq/Calcium Gluconate 10 meq/ Multivitamins 10 ml/Chromium/ Copper/Manganese/ Seleni/Zn 0.5 ml/ Insulin Human Regular 30 unit/ Total Parenteral Nutrition/Amino Acids/Dextrose/ Fat Emulsion Intravenous 1,920 ml @ 80 mls/hr TPN CONT IV Last administered on 08/20/19at 21:51; Start 08/20/19 at 22:00; Stop 08/21/19 at 22:00; Status DC Potassium Chloride 75 meq/ Magnesium Sulfate 20 meq/Calcium Gluconate 10 meq/ Multivitamins 10 ml/Chromium/ Copper/Manganese/ Seleni/Zn 0.5 ml/ Insulin Human Regular 25 unit/ Total Parenteral Nutrition/Amino Acids/Dextrose/ Fat Emulsion Intravenous 1,920 ml @ 80 mls/hr TPN CONT IV Last administered on 08/21/19at 22:04; Start 08/21/19 at 22:00; Stop 08/22/19 at 21:59; Status DC Hydromorphone HCl (Dilaudid) 0.4 mg PRN Q4HRS PRN IVP PAIN Last administered on 08/22/19at 10:57; Start 08/22/19 at 09:00; Stop 08/22/19 at 18:59; Status DC Micafungin Sodium 100 mg/Dextrose 100 ml @ 100 mls/hr Q24H IV Last administered on 09/13/19at 12:17; Start 08/22/19 at 11:00; Stop 09/14/19 at 09:59; Status DC Daptomycin 485 mg/ Sodium Chloride 50 ml @ 100 mls/hr Q24H IV Last administered on 08/29/19at 13:10; Start 08/22/19 at 11:00; Stop 08/30/19 at 07:44; Status DC Potassium Chloride 75 meq/ Magnesium Sulfate 15 meq/Calcium Gluconate 8 meq/ Multivitamins 10 ml/Chromium/ Copper/Manganese/ Seleni/Zn 0.5 ml/ Insulin Human Regular 25 unit/ Total Parenteral Nutrition/Amino Acids/Dextrose/ Fat Emulsion Intravenous 1,920 ml @ 80 mls/hr TPN CONT IV Last administered on 08/22/19at 23:08; Start 08/22/19 at 22:00; Stop 08/23/19 at 21:59; Status DC Haloperidol Lactate (Haldol Inj) 3 mg 1X ONCE IVP Last administered on 08/22/19at 14:37; Start 08/22/19 at 14:30; Stop 08/22/19 at 14:31; Status DC Hydromorphone HCl (Dilaudid) 1 mg PRN Q4HRS PRN IVP PAIN Last administered on 09/05/19at 06:25; Start 08/22/19 at 19:00; Stop 09/05/19 at 17:10; Status DC Potassium Chloride 75 meq/ Magnesium Sulfate 15 meq/Calcium Gluconate 8 meq/ Multivitamins 10 ml/Chromium/ Copper/Manganese/ Seleni/Zn 0.5 ml/ Insulin Human Regular 20 unit/ Total Parenteral Nutrition/Amino Acids/Dextrose/ Fat Emulsion Intravenous 1,920 ml @ 80 mls/hr TPN CONT IV Last administered on 08/23/19at 22 :10; Start 08/23/19 at 22:00; Stop 08/24/19 at 21:59; Status DC Lidocaine HCl (Buffered Lidocaine 1%) 3 ml STK-MED ONCE .ROUTE ; Start 08/24/19 at 11:31; Stop 08/24/19 at 11:31; Status DC Lidocaine HCl (Buffered Lidocaine 1%) 3 ml STK-MED ONCE .ROUTE ; Start 08/24/19 at 12:28; Stop 08/24/19 at 12:29; Status DC Lidocaine HCl (Buffered Lidocaine 1%) 6 ml 1X ONCE INJ Last administered on 08/24/19at 12:53; Start 08/24/19 at 12:45; Stop 08/24/19 at 12:46; Status DC Potassium Chloride 75 meq/ Magnesium Sulfate 15 meq/Calcium Gluconate 8 meq/ Multivitamins 10 ml/Chromium/ Copper/Manganese/ Seleni/Zn 0.5 ml/ Insulin Human Regular 20 unit/ Total Parenteral Nutrition/Amino Acids/Dextrose/ Fat Emulsion Intravenous 1,920 ml @ 80 mls/hr TPN CONT IV Last administered on 08/24/19at 22:00; Start 08/24/19 at 22:00; Stop 08/25/19 at 21:59; Status DC Potassium Chloride 75 meq/ Magnesium Sulfate 15 meq/Calcium Gluconate 8 meq/ Multivitamins 10 ml/Chromium/ Copper/Manganese/ Seleni/Zn 0.5 ml/ Insulin Human Regular 15 unit/ Total Parenteral Nutrition/Amino Acids/Dextrose/ Fat Emulsion Intravenous 1,920 ml @ 80 mls/hr TPN CONT IV Last administered on 08/25/19at 22:28; Start 08/25/19 at 22:00; Stop 08/26/19 at 21:59; Status DC Vecuronium [place] (Norcuron Bolus) 6 mg PRN Q6HRS PRN IV VENT ASYNCHRONY; Start 08/25/19 at 19:15; Stop 08/25/19 at 19:35; Status DC Bumetanide (Bumex) 2 mg 1X ONCE IV Last administered on 08/25/19at 22:09; Start 08/25/19 at 19:45; Stop 08/25/19 at 19:46; Status DC Lidocaine HCl (Buffered Lidocaine 1%) 3 ml STK-MED ONCE .ROUTE ; Start 08/26/19 at 07:59; Stop 08/26/19 at 07:59; Status DC Midazolam HCl (Versed) 5 mg STK-MED ONCE .ROUTE ; Start 08/26/19 at 08:36; Stop 08/26/19 at 08:36; Status DC Fentanyl Citrate (Fentanyl 5ml Vial) 250 mcg STK-MED ONCE .ROUTE ; Start 08/26/19 at 08:36; Stop 08/26/19 at 08:37; Status DC Lidocaine HCl (Buffered Lidocaine 1%) 3 ml 1X ONCE IJ Last administered on 08/26/19at 09:30; Start 08/26/19 at 09:15; Stop 08/26/19 at 09:16; Status DC Midazolam HCl (Versed) 5 mg 1X ONCE IV Last administered on 08/26/19at 09:30; Start 08/26/19 at 09:15; Stop 08/26/19 at 09:16; Status DC Fentanyl Citrate (Fentanyl 5ml Vial) 250 mcg 1X ONCE IV Last administered on 08/26/19at 09:30; Start 08/26/19 at 09:15; Stop 08/26/19 at 09:16; Status DC Bumetanide (Bumex) 2 mg DAILY IV Last administered on 09/05/19at 08:07; Start 08/26/19 at 10:00; Stop 09/05/19 at 17:15; Status DC Potassium Chloride 75 meq/ Magnesium Sulfate 15 meq/ Multivitamins 10 ml/Chromium/ Copper/Manganese/ Seleni/Zn 0.5 ml/ Insulin Human Regular 15 unit/ Total Parenteral Nutrition/Amino Acids/Dextrose/ Fat Emulsion Intravenous 1,920 ml @ 80 mls/hr TPN CONT IV Last administered on 08/26/19at 21:59; Start 08/26/19 at 22:00; Stop 08/27/19 at 21:59; Status DC Metoclopramide HCl (Reglan Vial) 10 mg PRN Q3HRS PRN IVP NAUSEA/VOMITING-3rd choice Last administered on 09/01/19at 04:25; Start 08/27/19 at 16:45 Potassium Chloride 75 meq/ Magnesium Sulfate 15 meq/ Multivitamins 10 ml/Chromium/ Copper/Manganese/ Seleni/Zn 0.5 ml/ Insulin Human Regular 15 unit/ Total Parenteral Nutrition/Amino Acids/Dextrose/ Fat Emulsion Intravenous 1,920 ml @ 80 mls/hr TPN CONT IV Last administered on 08/27/19at 22:41; Start 08/27/19 at 22:00; Stop 08/28/19 at 21:59; Status DC Magnesium Sulfate 50 ml @ 25 mls/hr 1X ONCE IV Last administered on 08/28/19at 10:44; Start 08/28/19 at 09:00; Stop 08/28/19 at 10:59; Status DC Potassium Chloride/Water 100 ml @ 100 mls/hr 1X ONCE IV Last administered on 08/28/19at 09:37; Start 08/28/19 at 09:00; Stop 08/28/19 at 09:59; Status DC Duloxetine HCl (Cymbalta) 30 mg DAILY PO Last administered on 08/29/19at 09:48; Start 08/28/19 at 14:00; Stop 08/31/19 at 10:25; Status DC Potassium Chloride 80 meq/ Magnesium Sulfate 20 meq/ Multivitamins 10 ml/Chromium/ Copper/Manganese/ Seleni/Zn 0.5 ml/ Insulin Human Regular 15 unit/ Total Parenteral Nutrition/Amino Acids/Dextrose/ Fat Emulsion Intravenous 1,920 ml @ 80 mls/hr TPN CONT IV Last administered on 08/28/19at 21:42; Start 08/28/19 at 22:00; Stop 08/29/19 at 21:59; Status DC Potassium Chloride 80 meq/ Magnesium Sulfate 20 meq/ Multivitamins 10 ml/Chromium/ Copper/Manganese/ Seleni/Zn 0.5 ml/ Insulin Human Regular 15 unit/ Total Parenteral Nutrition/Amino Acids/Dextrose/ Fat Emulsion Intravenous 1,920 ml @ 80 mls/hr TPN CONT IV Last administered on 08/29/19at 22:20; Start 08/29/19 at 22:00; Stop 08/30/19 at 21:59; Status DC Lidocaine HCl (Buffered Lidocaine 1%) 3 ml STK-MED ONCE .ROUTE ; Start 08/30/19 at 09:54; Stop 08/30/19 at 09:55; Status DC Hydromorphone HCl (Dilaudid Standard SOILS TECHNICIAN) 12 mg STK-MED ONCE IV ; Start 08/19/19 at 15:50; Stop 08/30/19 at 11:24; Status DC Potassium Chloride 80 meq/ Magnesium Sulfate 20 meq/ Multivitamins 10 ml/Chromium/ Copper/Manganese/ Seleni/Zn 0.5 ml/ Insulin Human Regular 15 unit/ Total Parenteral Nutrition/Amino Acids/Dextrose/ Fat Emulsion Intravenous 1,920 ml @ 80 mls/hr TPN CONT IV Last administered on 08/30/19at 21:40; Start 08/30/19 at 22:00; Stop 08/31/19 at 21:59; Status DC Lidocaine HCl (Buffered Lidocaine 1%) 6 ml 1X ONCE INJ Last administered on 08/30/19at 14:15; Start 08/30/19 at 14:15; Stop 08/30/19 at 14:16; Status DC Potassium Chloride 80 meq/ Magnesium Sulfate 20 meq/ Multivitamins 10 ml/Chromium/ Copper/Manganese/ Seleni/Zn 1 ml/ Insulin Human Regular 15 unit/ Total Parenteral Nutrition/Amino Acids/Dextrose/ Fat Emulsion Intravenous 1,920 ml @ 80 mls/hr TPN CONT IV Last administered on 08/31/19at 22:04; Start 08/31/19 at 22:00; Stop 09/01/19 at 21:59; Status DC Potassium Chloride/Water 100 ml @ 100 mls/hr 1X ONCE IV Last administered on 09/01/19at 11:34; Start 09/01/19 at 11:00; Stop 09/01/19 at 11:59; Status DC Potassium Chloride 90 meq/ Magnesium Sulfate 20 meq/ Multivitamins 10 ml/Chromium/ Copper/Manganese/ Seleni/Zn 1 ml/ Insulin Human Regular 15 unit/ Total Parenteral Nutrition/Amino Acids/Dextrose/ Fat Emulsion Intravenous 1,920 ml @ 80 mls/hr TPN CONT IV Last administered on 09/01/19at 22:57; Start 09/01/19 at 22:00; Stop 09/02/19 at 21:59; Status DC Potassium Chloride 90 meq/ Magnesium Sulfate 20 meq/ Multivitamins 10 ml/Chromium/ Copper/Manganese/ Seleni/Zn 1 ml/ Insulin Human Regular 15 unit/ Total Parenteral Nutrition/Amino Acids/Dextrose/ Fat Emulsion Intravenous 1,920 ml @ 80 mls/hr TPN CONT IV Last administered on 09/02/19at 22:48; Start 09/02/19 at 22:00; Stop 09/03/19 at 21:59; Status DC Potassium Chloride 90 meq/ Magnesium Sulfate 20 meq/ Multivitamins 10 ml/Chromium/ Copper/Manganese/ Seleni/Zn 1 ml/ Insulin Human Regular 15 unit/ Total Parenteral Nutrition/Amino Acids/Dextrose/ Fat Emulsion Intravenous 1,890 ml @ 78.75 mls/ hr TPN CONT IV Last administered on 09/03/19at 22:15; Start 09/03/19 at 22:00; Stop 09/04/19 at 21:59; Status DC Linezolid/Dextrose 300 ml @ 300 mls/hr Q12HR IV Last administered on 09/06/19at 21:08; Start 09/04/19 at 09:00; Stop 09/07/19 at 08:11; Status DC Daptomycin 450 mg/ Sodium Chloride 50 ml @ 100 mls/hr Q24H IV Last administered on 09/07/19at 09:25; Start 09/04/19 at 09:00; Stop 09/08/19 at 08:30; Status DC Potassium Chloride 90 meq/ Magnesium Sulfate 20 meq/ Multivitamins 10 ml/Chromium/ Copper/Manganese/ Seleni/Zn 1 ml/ Insulin Human Regular 15 unit/ Total Parenteral Nutrition/Amino Acids/Dextrose/ Fat Emulsion Intravenous 1,890 ml @ 78.75 mls/ hr TPN CONT IV Last administered on 09/04/19at 21:34; Start 09/04/19 at 22:00; Stop 09/05/19 at 21:59; Status DC Lorazepam (Ativan Inj) 2 mg STK-MED ONCE .ROUTE ; Start 09/04/19 at 14:58; Stop 09/04/19 at 14:58; Status DC Metoprolol Tartrate (Lopressor Vial) 5 mg 1X ONCE IVP Last administered on 09/04/19at 15:31; Start 09/04/19 at 15:15; Stop 09/04/19 at 15:16; Status DC Lorazepam (Ativan Inj) 2 mg 1X ONCE IVP Last administered on 09/04/19at 15:30; Start 09/04/19 at 15:15; Stop 09/04/19 at 15:16; Status DC Enoxaparin Sodium (Lovenox 40mg Syringe) 40 mg Q24H SQ Last administered on 09/23/19at 17:44; Start 09/04/19 at 17:00; Stop 09/25/19 at 06:50; Status DC Lorazepam (Ativan Inj) 1 mg PRN Q4HRS PRN IVP ANXIETY / AGITATION MILD-MOD Last administered on 09/18/19at 15:55; Start 09/04/19 at 19:15; Stop 09/20/19 at 11:45; Status DC Lorazepam (Ativan Inj) 2 mg PRN Q4HRS PRN IVP ANXIETY / AGITATION SEVERE Last administered on 09/19/19at 07:55; Start 09/04/19 at 19:15; Stop 09/20/19 at 11:45; Status DC Fentanyl Citrate (Fentanyl 2ml Vial) 50 mcg PRN Q4HRS PRN IVP SEVERE PAIN Last administered on 10/01/19at 05:15; Start 09/05/19 at 13:15; Stop 10/02/19 at 09:29; Status DC Fentanyl Citrate (Fentanyl 2ml Vial) 25 mcg PRN Q4HRS PRN IVP MODERATE PAIN Last administered on 10/01/19at 00:27; Start 09/05/19 at 13:15; Stop 10/02/19 at 09:30; Status DC Potassium Chloride 90 meq/ Magnesium Sulfate 20 meq/ Multivitamins 10 ml/Chromium/ Copper/Manganese/ Seleni/Zn 1 ml/ Insulin Human Regular 15 unit/ Total Parenteral Nutrition/Amino Acids/Dextrose/ Fat Emulsion Intravenous 1,890 ml @ 78.75 mls/ hr TPN CONT IV Last administered on 09/05/19at 22:18; Start 09/05/19 at 22:00; Stop 09/06/19 at 21:59; Status DC Furosemide (Lasix) 40 mg 1X ONCE IVP Last administered on 09/05/19at 21:51; Start 09/05/19 at 21:45; Stop 09/05/19 at 21:48; Status DC Albumin Human 100 ml @ 100 mls/hr 1X PRN PRN IV SEE COMMENTS; Start 09/06/19 at 01:30 Furosemide (Lasix) 40 mg [id number] IVP Last administered on 09/21/19at 08:04; Start 09/06/19 at 14:00; Stop 09/21/19 at 13:07; Status DC Potassium Chloride 90 meq/ Magnesium Sulfate 20 meq/ Multivitamins 10 ml/Chromium/ Copper/Manganese/ Seleni/Zn 1 ml/ Insulin Human Regular 15 unit/ Total Parenteral Nutrition/Amino Acids/Dextrose/ Fat Emulsion Intravenous 1,800 ml @ 75 mls/hr TPN CONT IV Last administered on 09/06/19at 22:31; Start 09/06/19 at 22:00; Stop 09/07/19 at 21:59; Status DC Potassium Chloride 90 meq/ Magnesium Sulfate 20 meq/ Multivitamins 10 ml/Chromium/ Copper/Manganese/ Seleni/Zn 1 ml/ Insulin Human Regular 15 unit/ Total Parenteral Nutrition/Amino Acids/Dextrose/ Fat Emulsion Intravenous 1,800 ml @ 75 mls/hr TPN CONT IV Last administered on 09/07/19at 22:28; Start 09/07/19 at 22:00; Stop 09/08/19 at 21:59; Status DC Potassium Chloride 110 meq/ Magnesium Sulfate 20 meq/ Multivitamins 10 ml/Chromium/ Copper/Manganese/ Seleni/Zn 1 ml/ Insulin Human Regular 15 unit/ Total Parenteral Nutrition/Amino Acids/Dextrose/ Fat Emulsion Intravenous 1,800 ml @ 75 mls/hr TPN CONT IV Last administered on 09/08/19at 22:01; Start 09/08/19 at 22:00; Stop 09/09/19 at 21:59; Status DC Saliva Substitute (Biotene Moisturizing Mouth) 2 spray PRN Q15MIN PRN PO DRY MOUTH; Start 09/08/19 at 11:00 Potassium Chloride 110 meq/ Magnesium Sulfate 20 meq/ Multivitamins 10 ml/Chromium/ Copper/Manganese/ Seleni/Zn 1 ml/ Insulin Human Regular 15 unit/ Total Parenteral Nutrition/Amino Acids/Dextrose/ Fat Emulsion Intravenous 1,800 ml @ 75 mls/hr TPN CONT IV Last administered on 09/09/19at 22:21; Start 09/09/19 at 22:00; Stop 09/10/19 at 21:59; Status DC Potassium Chloride 110 meq/ Magnesium Sulfate 20 meq/ Multivitamins 10 ml/Chromium/ Copper/Manganese/ Seleni/Zn 1 ml/ Insulin Human Regular 15 unit/ Total Parenteral Nutrition/Amino Acids/Dextrose/ Fat Emulsion Intravenous 1,800 ml @ 75 mls/hr TPN CONT IV Last administered on 09/10/19at 22:04; Start 09/10/19 at 22:00; Stop 09/11/19 at 21:59; Status DC Potassium Chloride 110 meq/ Magnesium Sulfate 20 meq/ Multivitamins 10 ml/Chromium/ Copper/Manganese/ Seleni/Zn 1 ml/ Insulin Human Regular 15 unit/ Total Parenteral Nutrition/Amino Acids/Dextrose/ Fat Emulsion Intravenous 1,800 ml @ 75 mls/hr TPN CONT IV Last administered on 09/11/19at 22:48; Start 09/11/19 at 22:00; Stop 09/12/19 at 21:59; Status DC Potassium Chloride 70 meq/ Magnesium Sulfate 20 meq/ Multivitamins 10 ml/Chromium/ Copper/Manganese/ Seleni/Zn 1 ml/ Insulin Human Regular 15 unit/ Total Parenteral Nutrition/Amino Acids/Dextrose/ Fat Emulsion Intravenous 1,800 ml @ 75 mls/hr TPN CONT IV Last administered on 09/12/19at 21:39; Start 09/12/19 at 22:00; Stop 09/13/19 at 21:59; Status DC Meropenem 500 mg/ Sodium Chloride 50 ml @ 100 mls/hr Q6HRS IV Last administered on 09/14/19at 06:02; Start 09/12/19 at 18:00; Stop 09/14/19 at 09:59; Status DC Barium Sulfate (Varibar Thin Liquid Apple) 148 gm 1X ONCE PO ; Start 09/13/19 at 11:45; Stop 09/13/19 at 11:49; Status DC Potassium Chloride 70 meq/ Magnesium Sulfate 20 meq/ Multivitamins 10 ml/Chromium/ Copper/Manganese/ Seleni/Zn 1 ml/ Insulin Human Regular 15 unit/ Total Parenteral Nutrition/Amino Acids/Dextrose/ Fat Emulsion Intravenous 1,800 ml @ 75 mls/hr TPN CONT IV Last administered on 09/13/19at 22:27; Start 09/13/19 at 22:00; Stop 09/14/19 at 21:59; Status DC Piperacillin Sod/ Tazobactam Sod 3.375 gm/Sodium Chloride 50 ml @ 100 mls/hr Q6HRS IV Last administered on 09/22/19at 06:10; Start 09/14/19 at 12:00; Stop 09/22/19 at 07:26; Status DC Potassium Chloride 70 meq/ Magnesium Sulfate 20 meq/ Multivitamins 10 ml/Chromium/ Copper/Manganese/ Seleni/Zn 1 ml/ Insulin Human Regular 15 unit/ Total Parenteral Nutrition/Amino Acids/Dextrose/ Fat Emulsion Intravenous 1,800 ml @ 75 mls/hr TPN CONT IV Last administered on 09/14/19at 22:03; Start 09/14/19 at 22:00; Stop 09/15/19 at 21:59; Status DC Potassium Chloride 70 meq/ Magnesium Sulfate 20 meq/ Multivitamins 10 ml/Chromium/ Copper/Manganese/ Seleni/Zn 1 ml/ Insulin Human Regular 15 unit/ Total Parenteral Nutrition/Amino Acids/Dextrose/ Fat Emulsion Intravenous 1,800 ml @ 75 mls/hr TPN CONT IV Last administered on 09/15/19at 22:33; Start 09/15/19 at 22:00; Stop 09/16/19 at 21:59; Status DC Potassium Chloride 70 meq/ Magnesium Sulfate 20 meq/ Multivitamins 10 ml/Chromium/ Copper/Manganese/ Seleni/Zn 1 ml/ Insulin Human Regular 15 unit/ Total Parenteral Nutrition/Amino Acids/Dextrose/ Fat Emulsion Intravenous 1,800 ml @ 75 mls/hr TPN CONT IV Last administered on 09/16/19at 23:13; Start 09/16/19 at 22:00; Stop 09/17/19 at 21:59; Status DC Potassium Chloride 80 meq/ Magnesium Sulfate 20 meq/ Multivitamins 10 ml/Chromium/ Copper/Manganese/ Seleni/Zn 1 ml/ Insulin Human Regular 15 unit/ Total Parenteral Nutrition/Amino Acids/Dextrose/ Fat Emulsion Intravenous 1,800 ml @ 75 mls/hr TPN CONT IV Last administered on 09/17/19at 22:30; Start 09/17/19 at 22:00; Stop 09/18/19 at 21:59; Status DC Potassium Chloride 80 meq/ Magnesium Sulfate 20 meq/ Multivitamins 10 ml/Chromium/ Copper/Manganese/ Seleni/Zn 1 ml/ Insulin Human Regular 15 unit/ Total Parenteral Nutrition/Amino Acids/Dextrose/ Fat Emulsion Intravenous 1,800 ml @ 75 mls/hr TPN CONT IV Last administered on 09/18/19at 21:54; Start 09/18/19 at 22:00; Stop 09/19/19 at 21:59; Status DC Potassium Chloride/Water 100 ml @ 100 mls/hr 1X ONCE IV Last administered on 09/19/19at 10:15; Start 09/19/19 at 10:00; Stop 09/19/19 at 10:59; Status DC Potassium Chloride 90 meq/ Magnesium Sulfate 20 meq/ Multivitamins 10 ml/ Chromium/ Copper/Manganese/ Seleni/Zn 1 ml/ Insulin Human Regular 20 unit/ Total Parenteral Nutrition/Amino Acids/Dextrose/ Fat Emulsion Intravenous 1,800 ml @ 75 mls/hr TPN CONT IV Last administered on 09/19/19at 22:28; Start 09/19/19 at 22:00; Stop 09/20/19 at 21:59; Status DC Potassium Chloride 90 meq/ Magnesium Sulfate 20 meq/ Multivitamins 10 ml/Chromium/ Copper/Manganese/ Seleni/Zn 1 ml/ Insulin Human Regular 20 unit/ Total Parenteral Nutrition/Amino Acids/Dextrose/ Fat Emulsion Intravenous 1,800 ml @ 75 mls/hr TPN CONT IV Last administered on 09/20/19at 22:08; Start 09/20/19 at 22:00; Stop 09/21/19 at 21:59; Status DC Lorazepam (Ativan Inj) 0.25 mg PRN Q4HRS PRN IVP ANXIETY / AGITATION Last administered on 10/01/19at 02:25; Start 09/21/19 at 07:30 Potassium Chloride 90 meq/ Magnesium Sulfate 20 meq/ Multivitamins 10 ml/Chromium/ Copper/Manganese/ Seleni/Zn 1 ml/ Insulin Human Regular 20 unit/ Total Parenteral Nutrition/Amino Acids/Dextrose/ Fat Emulsion Intravenous 1,800 ml @ 75 mls/hr TPN CONT IV Last administered on 09/21/19at 23:13; Start 09/21/19 at 22:00; Stop 09/22/19 at 21:59; Status DC Furosemide (Lasix) 40 mg DAILY IVP Last administered on 09/23/19at 11:14; Start 09/21/19 at 13:30; Stop 09/25/19 at 09:12; Status DC Fluoxetine HCl (PROzac) 20 mg QHS PEG Last administered on 10/13/19at 22:24; Start 09/22/19 at 21:00 Fentanyl (Duragesic 50mcg/ Hr Patch) 1 patch Q72H TD Last administered on 09/22/19at 21:22; Start 09/22/19 at 21:00; Stop 10/01/19 at 12:00; Status DC Potassium Chloride 40 meq/ Potassium Acetate 60 meq/Magnesium Sulfate 10 meq/ Multivitamins 10 ml/Chromium/ Copper/Manganese/ Seleni/Zn 1 ml/ Insulin Human Regular 20 unit/ Total Parenteral Nutrition/Amino Acids/Dextrose/ Fat Emulsion Intravenous 1,800 ml @ 75 mls/hr TPN CONT IV Last administered on 09/23/19at 00:03; Start 09/22/19 at 22:00; Stop 09/23/19 at 21:59; Status DC Potassium Acetate 80 meq/Magnesium Sulfate 5 meq/ Multivitamins 10 ml/Chromium/ Copper/Manganese/ Seleni/Zn 1 ml/ Insulin Human Regular 20 unit/ Total Parenteral Nutrition/Amino Acids/Dextrose/ Fat Emulsion Intravenous 1,920 ml @ 80 mls/hr TPN CONT IV Last administered on 09/23/19at 21:59; Start 09/23/19 at 22:00; Stop 09/24/19 at 21:59; Status DC Potassium Acetate 60 meq/Magnesium Sulfate 5 meq/ Multivitamins 10 ml/Chromium/ Copper/Manganese/ Seleni/Zn 1 ml/ Insulin Human Regular 30 unit/ Total Parenteral Nutrition/Amino Acids/Dextrose/ Fat Emulsion Intravenous 1,920 ml @ 80 mls/hr TPN CONT IV Last administered on 09/24/19at 21:54; Start 09/24/19 at 22:00; Stop 09/25/19 at 21:59; Status DC Norepinephrine Bitartrate 8 mg/ Dextrose 258 ml @ 13.332 mls/ hr CONT PRN IV PER PROTOCOL Last administered on 09/25/19at 21:46; Start 09/25/19 at 06:30 Albumin Human 500 ml @ 125 mls/hr 1X ONCE IV Last administered on 09/25/19at 08:10; Start 09/25/19 at 08:15; Stop 09/25/19 at 12:14; Status DC Potassium Acetate 40 meq/Magnesium Sulfate 5 meq/ Multivitamins 10 ml/Chromium/ Copper/Manganese/ Seleni/Zn 1 ml/ Insulin Human Regular 30 unit/ Total Parenteral Nutrition/Amino Acids/Dextrose/ Fat Emulsion Intravenous 1,920 ml @ 80 mls/hr TPN CONT IV Last administered on 09/25/19at 22:23; Start 09/25/19 at 22:00; Stop 09/26/19 at 21:59; Status DC Meropenem 1 gm/ Sodium Chloride 100 ml @ 200 mls/hr Q8HRS IV ; Start 09/25/19 at 14:00; Status Cancel Meropenem 1 gm/ Sodium Chloride 100 ml @ 200 mls/hr Q8HRS IV Last administered on 09/25/19at 11:04; Start 09/25/19 at 10:00; Stop 09/25/19 at 13:00; Status DC Meropenem 1 gm/ Sodium Chloride 100 ml @ 200 mls/hr Q12HR IV Last administered on 10/13/19at 08:27; Start 09/25/19 at 21:00; Stop 10/13/19 at 08:56; Status DC Sodium Chloride 1,000 ml @ 1,000 mls/hr 1X ONCE IV Last administered on 09/25/19at 11:06; Start 09/25/19 at 10:45; Stop 09/25/19 at 11:44; Status DC Micafungin Sodium 100 mg/Dextrose 100 ml @ 100 mls/hr Q24H IV Last administered on 10/12/19at 12:34; Start 09/25/19 at 11:00; Stop 10/13/19 at 08:56; Status DC Daptomycin 410 mg/ Sodium Chloride 50 ml @ 100 mls/hr Q24H IV Last administered on 09/27/19at 13:33; Start 09/25/19 at 14:00; Stop 09/28/19 at 08:30; Status DC Midazolam HCl (Versed) 2 mg STK-MED ONCE .ROUTE ; Start 09/25/19 at 14:47; Stop 09/25/19 at 14:48; Status DC Fentanyl Citrate (Fentanyl 2ml Vial) 100 mcg STK-MED ONCE .ROUTE ; Start 09/25/19 at 14:47; Stop 09/25/19 at 14:48; Status DC Flumazenil (Romazicon) 0.5 mg STK-MED ONCE IV ; Start 09/25/19 at 14:48; Stop 09/25/19 at 14:48; Status DC Naloxone HCl (Narcan) 0.4 mg STK-MED ONCE .ROUTE ; Start 09/25/19 at 14:48; Stop 09/25/19 at 14:48; Status DC Lidocaine HCl (Lidocaine 1% 20ml Vial) 20 ml STK-MED ONCE .ROUTE ; Start 09/25/19 at 14:48; Stop 09/25/19 at 14:48; Status DC Midazolam HCl (Versed) 2 mg 1X ONCE IV Last administered on 09/25/19at 15:28; Start 09/25/19 at 15:00; Stop 09/25/19 at 15:01; Status DC Fentanyl Citrate (Fentanyl 2ml Vial) 100 mcg 1X ONCE IV Last administered on 09/25/19at 15:28; Start 09/25/19 at 15:00; Stop 09/25/19 at 15:01; Status DC Lidocaine HCl (Lidocaine 1% 20ml Vial) 20 ml 1X ONCE INJ Last administered on 09/25/19at 15:30; Start 09/25/19 at 15:00; Stop 09/25/19 at 15:01; Status DC Sodium Chloride 1,000 ml @ 100 mls/hr Q10H IV Last administered on 10/04/19at 07:30; Start 09/25/19 at 20:00; Stop 10/04/19 at 11:26; Status DC Sodium Bicarbonate (Sodium Bicarb Adult 8.4% Syr) 50 meq 1X ONCE IV Last administered on 09/25/19at 21:47; Start 09/25/19 at 22:00; Stop 09/25/19 at 22:01; Status DC Potassium Acetate 40 meq/Magnesium Sulfate 5 meq/ Multivitamins 10 ml/Chromium/ Copper/Manganese/ Seleni/Zn 1 ml/ Insulin Human Regular 30 unit/ Total Parenteral Nutrition/Amino Acids/Dextrose/ Fat Emulsion Intravenous 1,920 ml @ 80 mls/hr TPN CONT IV Last administered on 09/26/19at 22:28; Start 09/26/19 at 22:00; Stop 09/27/19 at 21:59; Status DC Sodium Chloride 500 ml @ 500 mls/hr 1X ONCE IV Last administered on 09/27/19at 06:39; Start 09/27/19 at 06:45; Stop 09/27/19 at 07:44; Status DC Potassium Acetate 40 meq/Magnesium Sulfate 5 meq/ Multivitamins 10 ml/Chromium/ Copper/Manganese/ Seleni/Zn 1 ml/ Insulin Human Regular 30 unit/ Total Parenteral Nutrition/Amino Acids/Dextrose/ Fat Emulsion Intravenous 1,920 ml @ 80 mls/hr TPN CONT IV Last administered on 09/27/19at 22:03; Start 09/27/19 at 22:00; Stop 09/28/19 at 21:59; Status DC Metoprolol Tartrate (Lopressor Vial) 5 mg PRN Q6HRS PRN IVP HYPERTENSION Last administered on 10/06/19at 10:14; Start 09/28/19 at 09:00 Potassium Acetate 40 meq/Magnesium Sulfate 5 meq/ Multivitamins 10 ml/Chromium/ Copper/Manganese/ Seleni/Zn 1 ml/ Insulin Human Regular 30 unit/ Total Parenteral Nutrition/Amino Acids/Dextrose/ Fat Emulsion Intravenous 1,920 ml @ 80 mls/hr TPN CONT IV Last administered on 09/28/19at 21:26; Start 09/28/19 at 22:00; Stop 09/29/19 at 21:59; Status DC Potassium Acetate 40 meq/Magnesium Sulfate 5 meq/ Multivitamins 10 ml/Chromium/ Copper/Manganese/ Seleni/Zn 1 ml/ Insulin Human Regular 30 unit/ Total Parenteral Nutrition/Amino Acids/Dextrose/ Fat Emulsion Intravenous 1,920 ml @ 80 mls/hr TPN CONT IV Last administered on 09/29/19at 23:23; Start 09/29/19 at 22:00; Stop 09/30/19 at 21:59; Status DC Potassium Acetate 40 meq/Magnesium Sulfate 5 meq/ Multivitamins 10 ml/Chromium/ Copper/Manganese/ Seleni/Zn 1 ml/ Insulin Human Regular 30 unit/ Total Parenteral Nutrition/Amino Acids/Dextrose/ Fat Emulsion Intravenous 1,920 ml @ 80 mls/hr TPN CONT IV Last administered on 09/30/19at 21:35; Start 09/30/19 at 22:00; Stop 10/01/19 at 21:59; Status DC Furosemide (Lasix) 20 mg 1X ONCE IVP Last administered on 10/01/19at 06:26; Start 10/01/19 at 06:15; Stop 10/01/19 at 06:16; Status DC Methylprednisolone Sodium Succinate (SOLU-Medrol 125MG VIAL) 125 mg 1X ONCE IV Last administered on 10/01/19at 06:26; Start 10/01/19 at 06:15; Stop 10/01/19 at 06:16; Status DC Albuterol/ Ipratropium (Duoneb) 3 ml Q4HRS NEB Last administered on 10/14/19at 08:56; Start 10/01/19 at 08:00 Fentanyl Citrate 30 ml @ 0 mls/hr CONT PRN IV SEE PROTOCOL Last administered on 10/13/19at 17:43; Start 10/01/19 at 06:00 Propofol 100 ml @ 0 mls/hr CONT PRN IV SEE PROTOCOL Last administered on 10/08/19at 23:50; Start 10/01/19 at 06:00 Fentanyl Citrate (Fentanyl 2ml Vial) 25 mcg PRN Q1HR PRN IV SEE COMMENTS; Start 10/01/19 at 06:00 Fentanyl Citrate (Fentanyl 2ml Vial) 50 mcg PRN Q1HR PRN IV SEE COMMENTS; Sta rt 10/01/19 at 06:00 Chlorhexidine Gluconate (Peridex) 15 ml BID MM ; Start 10/01/19 at 09:00; Stop 10/01/19 at 07:58; Status DC Potassium Acetate 40 meq/Magnesium Sulfate 5 meq/ Multivitamins 10 ml/Chromium/ Copper/Manganese/ Seleni/Zn 1 ml/ Insulin Human Regular 30 unit/ Total Parenteral Nutrition/Amino Acids/Dextrose/ Fat Emulsion Intravenous 1,920 ml @ 80 mls/hr TPN CONT IV Last administered on 10/01/19at 21:19; Start 10/01/19 at 22:00; Stop 10/02/19 at 21:59; Status DC Acetylcysteine (Mucomyst 20% Resp Treatment) 600 mg BID NEB Last administered on 10/07/19at 09:33; Start 10/01/19 at 21:00; Stop 10/07/19 at 10:39; Status DC Magnesium Sulfate 100 ml @ 25 mls/hr 1X ONCE IV Last administered on 10/01/19at 15:48; Start 10/01/19 at 15:45; Stop 10/01/19 at 19:44; Status DC Potassium Acetate 40 meq/Magnesium Sulfate 5 meq/ Multivitamins 10 ml/Chromium/ Copper/Manganese/ Seleni/Zn 1 ml/ Insulin Human Regular 30 unit/ Total Parenteral Nutrition/Amino Acids/Dextrose/ Fat Emulsion Intravenous 1,920 ml @ 80 mls/hr TPN CONT IV Last administered on 10/02/19at 21:35; Start 10/02/19 at 22:00; Stop 10/03/19 at 21:59; Status DC Potassium Chloride/Water 100 ml @ 100 mls/hr Q1H IV Last administered on 10/03/19at 08:31; Start 10/03/19 at 07:00; Stop 10/03/19 at 08:59; Status DC Potassium Acetate 40 meq/Magnesium Sulfate 5 meq/ Multivitamins 10 ml/Chromium/ Copper/Manganese/ Seleni/Zn 1 ml/ Insulin Human Regular 30 unit/ Total Parenteral Nutrition/Amino Acids/Dextrose/ Fat Emulsion Intravenous 1,920 ml @ 80 mls/hr TPN CONT IV Last administered on 6/15/20at 21:54; Start 10/03/19 at 22:00; Stop 10/04/19 at 19:34; Status DC Lidocaine HCl (Buffered Lidocaine 1%) 3 ml STK-MED ONCE .ROUTE ; Start 10/03/19 at 12:14; Stop 10/03/19 at 12:14; Status DC Lidocaine HCl (Buffered Lidocaine 1%) 3 ml 1X ONCE IJ Last administered on 10/03/19at 13:11; Start 10/03/19 at 13:00; Stop 10/03/19 at 13:01; Status DC Magnesium Sulfate 50 ml @ 25 mls/hr 1X ONCE IV ; Start 10/04/19 at 08:15; Stop 10/04/19 at 10:14; Status DC Potassium Acetate 40 meq/Magnesium Sulfate 10 meq/ Multivitamins 10 ml/Chromium/ Copper/Manganese/ Seleni/Zn 1 ml/ Insulin Human Regular 20 unit/ Total Parenteral Nutrition/Amino Acids/Dextrose/ Fat Emulsion Intravenous 1,920 ml @ 80 mls/hr TPN CONT IV Last administered on 10/04/19at 21:32; Start 10/04/19 at 22:00; Stop 10/05/19 at 21:59; Status DC Potassium Chloride/Water 100 ml @ 100 mls/hr Q1H IV Last administered on 10/05/19at 09:12; Start 10/05/19 at 08:00; Stop 10/05/19 at 09:59; Status DC Alteplase, Recombinant (Cathflo For Central Catheter Clearance) 4 mg 1X ONCE INT CAT ; Start 10/05/19 at 09:15; Stop 10/05/19 at 09:16; Status UNV Alteplase, Recombinant (Cathflo For Central Catheter Clearance) 4 mg 1X ONCE INT CAT ; Start 10/05/19 at 09:15; Stop 10/05/19 at 09:16; Status UNV Alteplase, Recombinant (Cathflo For Central Catheter Clearance) 4 mg 1X ONCE INT CAT ; Start 10/05/19 at 09:15; Stop 10/05/19 at 09:16; Status UNV Alteplase, Recombinant 4 mg/ Sodium Chloride 20 ml @ 20 mls/hr 1X ONCE IV Last administered on 10/05/19at 10:10; Start 10/05/19 at 10:00; Stop 10/05/19 at 10:59; Status DC Alteplase, Recombinant 4 mg/ Sodium Chloride 20 ml @ 20 mls/hr 1X ONCE IV Last administered on 10/05/19at 10:09; Start 10/05/19 at 10:00; Stop 10/05/19 at 10:59; Status DC Alteplase, Recombinant 4 mg/ Sodium Chloride 20 ml @ 20 mls/hr 1X ONCE IV Last administered on 10/05/19at 10:09; Start 10/05/19 at 10:00; Stop 10/05/19 at 10:59; Status DC Potassium Acetate 60 meq/Magnesium Sulfate 10 meq/ Multivitamins 10 ml/Chromium/ Copper/Manganese/ Seleni/Zn 1 ml/ Insulin Human Regular 20 unit/ Total Parenteral Nutrition/Amino Acids/Dextrose/ Fat Emulsion Intravenous 1,920 ml @ 80 mls/hr TPN CONT IV Last administered on 10/05/19at 21:55; Start 10/05/19 at 22:00; Stop 10/06/19 at 21:59; Status DC Albumin Human 500 ml @ 125 mls/hr 1X ONCE IV Last administered on 10/06/19at 12:01; Start 10/06/19 at 11:15; Stop 10/06/19 at 15:14; Status DC Sodium Chloride 500 ml @ 500 mls/hr 1X ONCE IV Last administered on 10/06/19at 13:50; Start 10/06/19 at 11:15; Stop 10/06/19 at 12:14; Status DC Potassium Acetate 60 meq/Magnesium Sulfate 14 meq/ Multivitamins 10 ml/Chromium/ Copper/Manganese/ Seleni/Zn 1 ml/ Insulin Human Regular 20 unit/ Total Parenteral Nutrition/Amino Acids/Dextrose/ Fat Emulsion Intravenous 1,920 ml @ 80 mls/hr TPN CONT IV Last administered on 10/06/19at 22:26; Start 10/06/19 at 22:00; Stop 10/07/19 at 21:59; Status DC Ciprofloxacin/ Dextrose 200 ml @ 200 mls/hr Q12HR IV Last administered on 10/13/19at 08:27; Start 10/06/19 at 21:00; Stop 10/13/19 at 08:56; Status DC Albumin Human 250 ml @ 62.5 mls/hr 1X ONCE IV Last administered on 10/07/19at 11:09; Start 10/07/19 at 11:00; Stop 10/07/19 at 14:59; Status DC Furosemide (Lasix) 20 mg 1X ONCE IVP Last administered on 10/07/19at 14:52; Start 10/07/19 at 10:45; Stop 10/07/19 at 10:49; Status DC Potassium Acetate 60 meq/Magnesium Sulfate 14 meq/ Multivitamins 10 ml/Chromium/ Copper/Manganese/ Seleni/Zn 1 ml/ Insulin Human Regular 15 unit/ Total Parenteral Nutrition/Amino Acids/Dextrose/ Fat Emulsion Intravenous 1,920 ml @ 80 mls/hr TPN CONT IV Last administered on 10/07/19at 22:08; Start 10/07/19 at 22:00; Stop 10/08/19 at 21:59; Status DC Potassium Acetate 60 meq/Magnesium Sulfate 14 meq/ Multivitamins 10 ml/Chromium/ Copper/Manganese/ Seleni/Zn 1 ml/ Insulin Human Regular 15 unit/ Total Parenteral Nutrition/Amino Acids/Dextrose/ Fat Emulsion Intravenous 1,920 ml @ 80 mls/hr TPN CONT IV Last administered on 10/08/19at 22:12; Start 10/08/19 at 22:00; Stop 10/09/19 at 21:59; Status DC Potassium Acetate 60 meq/Magnesium Sulfate 14 meq/ Multivitamins 10 ml/Chromium/ Copper/Manganese/ Seleni/Zn 1 ml/ Insulin Human Regular 15 unit/ Total Parenteral Nutrition/Amino Acids/Dextrose/ Fat Emulsion Intravenous 1,920 ml @ 80 mls/hr TPN CONT IV Last administered on 10/09/19at 22:22; Start 10/09/19 at 22:00; Stop 10/10/19 at 21:59; Status DC Furosemide (Lasix) 20 mg 1X ONCE IVP Last administered on 10/10/19at 11:07; Start 10/10/19 at 10:30; Stop 10/10/19 at 10:34; Status DC Potassium Acetate 60 meq/Magnesium Sulfate 14 meq/ Multivitamins 10 ml/Chromium/ Copper/Manganese/ Seleni/Zn 1 ml/ Insulin Human Regular 15 unit/ Sodium Chloride 20 meq/Total Parenteral Nutrition/Amino Acids/Dextrose/ Fat Emulsion Intravenous 1,920 ml @ 80 mls/hr TPN CONT IV Last administered on 10/10/19at 21:54; Start 10/10/19 at 22:00; Stop 10/11/19 at 21:59; Status DC Potassium Acetate 30 meq/Magnesium Sulfate 14 meq/ Multivitamins 10 ml/Chromium/ Copper/Manganese/ Seleni/Zn 1 ml/ Insulin Human Regular 15 unit/ Sodium Chloride 20 meq/Potassium Chloride 30 meq/ Total Parenteral Nutrition/Amino Acids/Dextrose/ Fat Emulsion Intravenous 1,920 ml @ 80 mls/hr TPN CONT IV Last administered on 10/11/19at 21:46; Start 10/11/19 at 22:00; Stop 10/12/19 at 21:59; Status DC Sodium Chloride 80 meq/Potassium Chloride 30 meq/ Potassium Acetate 30 meq/Magnesium Sulfate 14 meq/ Multivitamins 10 ml/Chromium/ Copper/Manganese/ Seleni/Zn 1 ml/ Insulin Human Regular 15 unit/ Total Parenteral Nutrition/Amino Acids/Dextrose/ Fat Emulsion Intravenous 1,920 ml @ 80 mls/hr TPN CONT IV Last administered on 10/12/19at 22:33; Start 10/12/19 at 22:00; Stop 10/13/19 at 21:59; Status DC Furosemide (Lasix) 40 mg 1X ONCE IVP Last administered on 10/12/19at 16:27; Start 10/12/19 at 15:30; Stop 10/12/19 at 15:33; Status DC Albumin Human 250 ml @ 62.5 mls/hr 1X ONCE IV Last administered on 10/12/19at 16:27; Start 10/12/19 at 15:30; Stop 10/12/19 at 19:29; Status DC Sodium Chloride 80 meq/Potassium Chloride 30 meq/ Potassium Acetate 30 meq/Magnesium Sulfate 14 meq/ Multivitamins 10 ml/Chromium/ Copper/Manganese/ Seleni/Zn 1 ml/ Insulin Human Regular 15 unit/ Total Parenteral Nutrition/Amino Acids/Dextrose/ Fat Emulsion Intravenous 1,920 ml @ 80 mls/hr TPN CONT IV Last administered on 10/13/19at 22:25; Start 10/13/19 at 22:00; Stop 10/14/19 at 21:59 Active Scripts Active Reported Bisoprolol Fumarate 5 Mg Tablet 10 Mg PO DAILY Vitals/I & O Vital Sign - Last 24 Hours 10/13/19 10/13/19 10/13/19 10/13/19 12:00 12:05 16:00 16:03 Temp 98.8 99.8 98.8 99.8 Pulse 125 123 Resp 22 33 B/P (MAP) 132/71 (91) 105/64 (78) Pulse Ox 99 97 99 98 O2 Delivery Tracheal Collar Tracheal Collar Tracheal Collar Tracheal Collar O2 Flow Rate 6.0 8.0 6.0 8.0 10/13/19 10/13/19 10/13/19 10/13/19 17:43 20:00 20:00 20:02 Temp 99.9 99.9 Pulse 120 Resp 24 B/P (MAP) 111/64 (80) Pulse Ox 97 98 92 O2 Delivery Tracheal Collar Trach Collar Tracheal Collar Tracheal Collar O2 Flow Rate 6.0 6.0 6.0 8.0 10/13/19 10/14/19 10/14/19 10/14/19 23:45 00:00 03:54 04:00 Temp 99.3 99.1 99.3 99.1 Pulse 112 112 Resp 28 B/P (MAP) 123/67 (85) 91/57 (68) Pulse Ox 100 98 96 100 O2 Delivery Tracheal Collar Tracheal Collar Tracheal Collar Tracheal Collar O2 Flow Rate 8.0 6.0 8.0 6.0 10/14/19 10/14/19 10/14/19 08:00 08:00 08:58 Temp 99.0 99.0 Pulse 140 Resp 28 B/P (MAP) 113/91 (98) Pulse Ox 100 96 O2 Delivery Trach Collar Tracheal Collar Tracheal Collar O2 Flow Rate 6.0 8.0 Intake and Output 10/13/19 10/13/19 10/14/19 15:00 23:00 07:00 Intake Total 300 ml 1016.8 ml 901 ml Output Total 445 ml 370 ml 710 ml Balance -145 ml 646.8 ml 191 ml Hemodynamically unstable?: No Is patient in severe pain?: No Is NPO status required?: No NIELS MCGILL MD Oct 14, 2019 11:23
[2019-10-14] MEDS: TPN PER PHARMACY MC PRN (11:51)
--- NOTE | 2019-10-14 11:52 | NUR ---
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, 8 inches Weight: 87.5 kg Current diet: NPO LABS: Sodium: 137 Potassium: 4.1 Chloride: 101 Calcium: 10.4 Corrected Calcium: 12.72 Magnesium: 2.1 CO2: 36 SCr: 0.6 Glucose: 125-138 Albumin: 1.1 AST: 19 ALT: 14 TPN FORMULA: TPN TYPE: Central Continuous AMINO ACIDS: 80 gm DEXTROSE: 250 gm LIPIDS: 20 gm SODIUM CHLORIDE: 80 mEq POTASSIUM CHLORIDE: 30 mEq POTASSIUM ACETATE: 30 mEq MAGNESIUM: 14 mEq INSULIN: 15 units MULTIPLE VITAMIN: 10 ml TRACE ELEMENTS: 1 ml(s) TPN PLAN: Continue same TPN R: Continue same TPN formula. Will monitor electrolytes, glucose, and tolerance to TPN. MIKAYLA CHU RPH, 10/14/19 [id number]
--- NOTE | 2019-10-14 14:18 | NUR ---
SS following up with discharge planning. SS reviewed pt chart and discussed with pt RN. No new changes today. Pt on TPN and trach collar. Pt has drains x3 and chest tube. Pt max dependent with PT/OT and staff. Tentative surgery scheduled for next week. SS will continue to follow for discharge planning.
[2019-10-14] MEDS ORDERED: DEXTROSE 70% IV SCH ×10 (22:00)
[2019-10-14] MEDS ORDERED: TOTAL PARENTERAL NUTRITION IV SCH ×10 (22:00)
[2019-10-14] MEDS ORDERED: AMINO ACID IV SCH ×10 (22:00)
[2019-10-14] MEDS ORDERED: [UNRECOGNIZED DRUG - OTHER] IV SCH ×10 (22:00)
[2019-10-15] VITALS: BP 107/71
[2019-10-15 04:00] VITALS: BP 106/65
[2019-10-15] MEDS: IPRATRPIUM/ALBUTEROL 0.5/2.5MG 3 ML NEBU. NEB SCH ×6 (04:00→23:17)
[2019-10-15] MEDS: INSULIN LISPRO 300 UNITS/3 ML VIAL. SQ SCH ×4 (06:00→17:49)
[2019-10-15 08:00] VITALS: BP 122/67
--- NOTE | 2019-10-15 08:24 | PDOC ---
Infectious Disease Note Subjective: Subjective Patient is awake States feels okay No fever Vital Signs: Vital Signs Vital Signs Date Time Temp Pulse Resp B/P (MAP) Pulse Ox O2 Delivery O2 Flow Rate FiO2 10/15/19 08:00 98.6 116 26 122/67 (85) 99 Tracheal Collar 98.6 10/15/19 04:42 8.0 Physical Exam: PHYSICAL EXAM GENERAL: Patient alert awake comfortable HEENT: Anicteric, no thrush NECK: Tracheostomy LUNGS: Diminished aeration bases, no accessory muscle use - CT on left with clear fluid HEART: S1, S2,regular ABDOMEN: Mild distention, bowel sounds present, soft, grimaces to palpation, drains x 3 : Lind ( 09/24) EXTREMITIES: + edema BLE SKIN: no signs of gen rash LUE-PICC without signs of complications Medications: Inpatient Meds: Current Medications Medications (Trade) Dose Ordered Sig/Yvon Start Time Stop Time Status Last Admin Dose Admin Acetaminophen (Tylenol Supp) 650 mg PRN Q6HRS PRN 07/12/19 10:30 10/06/19 10:16 650 MG Acetaminophen (Tylenol) 650 mg PRN Q6HRS PRN 07/09/19 03:36 08/31/19 10:25 DC 08/04/19 19:56 650 MG Acetylcysteine (Mucomyst 20% Resp Treatment) 600 mg BID 10/01/19 21:00 10/07/19 10:39 DC 10/07/19 09:33 600 MG Albumin Human 250 ml @ 62.5 mls/hr 1X ONCE 10/12/19 15:30 10/12/19 19:29 DC 10/12/19 16:27 62.5 MLS/HR Albuterol Sulfate (Ventolin Neb Soln) 2.5 mg 1X ONCE 07/05/19 22:30 07/05/19 22:31 DC 07/06/19 00:56 2.5 MG Albuterol/ Ipratropium (Duoneb) 3 ml Q4HRS 10/01/19 08:00 10/15/19 04:00 3 ML Alteplase, Recombinant (Cathflo For Central Catheter Clearance) 4 mg 1X ONCE 10/05/19 09:15 10/05/19 09:16 UNV Alteplase, Recombinant 4 mg/ Sodium Chloride 20 ml @ 20 mls/hr 1X ONCE 10/05/19 10:00 10/05/19 10:59 DC 10/05/19 10:09 20 MLS/HR Amino Acids/ Glycerin/ Electrolytes 1,000 ml @ 75 mls/hr [id number] 08/08/19 21:15 UNV Artificial Tears (Artificial Tears) 1 drop PRN Q15MIN PRN 08/17/19 05:30 10/11/19 21:17 1 DROP Atenolol (Tenormin) 100 mg DAILY 07/05/19 09:00 07/04/19 20:08 DC Atropine Sulfate (ATROPINE 0.5mg SYRINGE) 0.5 mg PRN Q5MIN PRN 07/21/19 08:15 Barium Sulfate (Varibar Thin Liquid Apple) 148 gm 1X ONCE 09/13/19 11:45 09/13/19 11:49 DC Benzocaine (Hurricaine One) 1 spray 1X ONCE 07/08/19 14:30 07/08/19 14:31 DC 07/08/19 16:38 1 SPRAY Bisacodyl (Dulcolax Supp) 10 mg STK-MED ONCE 08/15/19 10:59 08/15/19 10:59 DC Bumetanide (Bumex) 2 mg DAILY 08/26/19 10:00 09/05/19 17:15 DC 09/05/19 08:07 2 MG Bupivacaine HCl/ Epinephrine Bitart (Sensorcain-Epi 0.5%-1:[id number] Mpf) 30 ml STK-MED ONCE 08/15/19 10:58 08/15/19 10:58 DC 08/15/19 12:01 7 ML Calcium Carbonate/ Glycine (Tums) 500 mg PRN AFTMEALHC PRN 07/06/19 17:45 08/31/19 10:25 DC Calcium Chloride 1000 mg/Sodium Chloride 110 ml @ 220 mls/hr 1X ONCE 07/05/19 22:30 07/05/19 22:59 DC 07/05/19 22:11 220 MLS/HR Calcium Chloride 3000 mg/Sodium Chloride 1,030 ml @ 50 mls/hr [id number] 07/07/19 08:00 07/09/19 15:23 DC 07/09/19 02:17 50 MLS/HR Calcium Gluconate (Calcium Gluconate) 2,000 mg 1X ONCE 07/07/19 02:15 07/07/19 02:16 DC 07/07/19 02:19 2,000 MG Calcium Gluconate 1000 mg/Sodium Chloride 110 ml @ 220 mls/hr 1X ONCE 07/06/19 03:30 07/06/19 03:59 DC 07/06/19 03:21 220 MLS/HR Calcium Gluconate 2000 mg/Sodium Chloride 120 ml @ 220 mls/hr 1X ONCE 07/06/19 07:30 07/06/19 08:02 DC 07/06/19 09:05 220 MLS/HR Cefepime HCl (Maxipime) 2 gm Q12HR 07/13/19 09:00 07/27/19 09:58 DC 07/26/19 20:56 2 GM Cellulose (Surgicel Fibrillar 1x2) 1 each STK-MED ONCE 07/25/19 11:00 07/25/19 11:01 DC Cellulose (Surgicel Hemostat 2x14) 1 each STK-MED ONCE 08/15/19 10:58 08/15/19 10:59 DC Cellulose (Surgicel Hemostat 4x8) 1 each STK-MED ONCE 08/15/19 10:58 08/15/19 10:59 DC Chlorhexidine Gluconate (Peridex) 15 ml BID 10/01/19 09:00 10/01/19 07:58 DC Ciprofloxacin/ Dextrose 200 ml @ 200 mls/hr Q12HR 10/06/19 21:00 10/13/19 08:56 DC 10/13/19 08:27 200 MLS/HR Cyclobenzaprine HCl (Flexeril) 10 mg PRN Q6HRS PRN 08/18/19 10:45 Daptomycin 410 mg/ Sodium Chloride 50 ml @ 100 mls/hr Q24H 09/25/19 14:00 09/28/19 08:30 DC 09/27/19 13:33 100 MLS/HR Daptomycin 430 mg/ Sodium Chloride 50 ml @ 100 mls/hr Q24H 08/13/19 13:00 08/18/19 20:58 DC 08/18/19 13:00 100 MLS/HR Daptomycin 450 mg/ Sodium Chloride 50 ml @ 100 mls/hr Q24H 09/04/19 09:00 09/08/19 08:30 DC 09/07/19 09:25 100 MLS/HR Daptomycin 485 mg/ Sodium Chloride 50 ml @ 100 mls/hr Q24H 08/22/19 11:00 08/30/19 07:44 DC 08/29/19 13:10 100 MLS/HR Daptomycin 500 mg/ Sodium Chloride 50 ml @ 100 mls/hr Q48H 07/13/19 08:30 07/29/19 10:07 DC 07/29/19 09:57 100 MLS/HR Dexamethasone Sodium Phosphate (Decadron) 4 mg STK-MED ONCE 08/15/19 10:56 08/15/19 10:57 DC Dexmedetomidine HCl 400 mcg/ Sodium Chloride 100 ml @ 0 mls/hr CONT PRN 07/21/19 08:15 09/17/19 18:31 DC 09/17/19 12:57 8 MLS/HR Dextrose (Dextrose 50%-Water Syringe) 12.5 gm PRN Q15MIN PRN 07/04/19 09:30 Digoxin (Lanoxin) 125 mcg 1X ONCE 07/07/19 18:00 07/07/19 18:01 DC 07/07/19 17:10 125 MCG Diphenhydramine HCl (Benadryl) 25 mg 1X PRN PRN 08/12/19 15:45 08/13/19 15:44 DC Duloxetine HCl (Cymbalta) 30 mg DAILY 08/28/19 14:00 08/31/19 10:25 DC 08/29/19 09:48 30 MG Enoxaparin Sodium (Lovenox 100mg Syringe) 100 mg Q12HR 08/09/19 21:00 UNV Enoxaparin Sodium (Lovenox 40mg Syringe) 40 mg Q24H 09/04/19 17:00 09/25/19 06:50 DC 09/23/19 17:44 40 MG Etomidate (Amidate) 8 mg 1X ONCE 07/11/19 08:30 07/11/19 08:31 DC 07/11/19 08:33 8 MG Fentanyl (Duragesic 50mcg/ Hr Patch) 1 patch Q72H 09/22/19 21:00 10/01/19 12:00 DC 09/22/19 21:22 1 PATCH Fentanyl Citrate (Fentanyl 2ml Vial) 50 mcg PRN Q1HR PRN 10/01/19 06:00 Fentanyl Citrate (Fentanyl 5ml Vial) 250 mcg 1X ONCE 08/26/19 09:15 08/26/19 09:16 DC 08/26/19 09:30 50 MCG Flumazenil (Romazicon) 0.5 mg STK-MED ONCE 09/25/19 14:48 09/25/19 14:48 DC Fluoxetine HCl (PROzac) 20 mg QHS 09/22/19 21:00 10/14/19 21:29 20 MG Furosemide (Lasix) 40 mg 1X ONCE 10/12/19 15:30 10/12/19 15:33 DC 10/12/19 16:27 40 MG Haloperidol Lactate (Haldol Inj) 3 mg 1X ONCE 08/22/19 14:30 08/22/19 14:31 DC 08/22/19 14:37 3 MG Heparin Sodium (Porcine) (Hep Lock Adult) 500 unit STK-MED ONCE 07/26/19 09:29 07/26/19 09:30 DC Heparin Sodium (Porcine) (Heparin Sodium) 5,000 unit Q12HR 08/15/19 21:00 08/25/19 09:59 DC 08/24/19 20:57 5,000 UNIT Heparin Sodium (Porcine) 1000 unit/Sodium Chloride 1,001 ml @ 1,001 mls/hr 1X ONCE 08/15/19 12:00 08/15/19 12:59 DC Hydromorphone HCl (Dilaudid Standard M[employer]ED [employer]) 12 mg STK-MED ONCE 08/19/19 15:50 08/30/19 11:24 DC Hydromorphone HCl (Dilaudid) 1 mg PRN Q4HRS PRN 08/22/19 19:00 09/05/19 17:10 DC 09/05/19 06:25 1 MG Info (CONTRAST GIVEN -- Rx MONITORING) 1 each PRN DAILY PRN 07/18/19 11:45 07/20/19 11:44 DC Info (Icu Electrolyte Protocol) 1 ea CONT PRN PRN 07/17/19 13:15 Info (PHARMACY MONITORING -- do not chart) 1 each PRN DAILY PRN 08/12/19 15:45 09/13/19 14:14 DC Info (Tpn Per Pharmacy) 1 each PRN DAILY PRN 07/06/19 12:30 UNV Insulin Human Lispro (HumaLOG) 0-9 UNITS Q6HRS 07/04/19 09:30 10/12/19 18:05 4 UNITS Insulin Human Regular (HumuLIN R VIAL) 5 unit 1X ONCE 07/05/19 22:30 07/05/19 22:31 DC 07/05/19 22:14 5 UNIT Iohexol (Omnipaque 240 Mg/ml) 30 ml 1X ONCE 07/18/19 11:30 07/18/19 11:33 DC 07/18/19 11:30 30 ML Iohexol (Omnipaque 300 Mg/ml) 50 ml STK-MED ONCE 08/15/19 10:58 08/15/19 10:59 DC Iohexol (Omnipaque 350 Mg/ml) 90 ml 1X ONCE 07/04/19 03:30 07/04/19 03:31 DC 07/04/19 03:25 90 ML Ketorolac Tromethamine (Toradol 30mg Vial) 30 mg 1X ONCE 07/04/19 03:00 07/04/19 03:01 DC 07/04/19 02:54 30 MG Lidocaine HCl (Buffered Lidocaine 1%) 3 ml 1X ONCE 10/03/19 13:00 10/03/19 13:01 DC 10/03/19 13:11 12 ML Lidocaine HCl (Glydo (Lidocaine) Jelly) 1 ramu 1X ONCE 07/08/19 14:30 07/08/19 14:31 DC 07/08/19 16:38 1 RAMU Lidocaine HCl (Lidocaine 1% 20ml Vial) 20 ml 1X ONCE 09/25/19 15:00 09/25/19 15:01 DC 09/25/19 15:30 20 ML Lidocaine HCl (Xylocaine-Mpf 1% 2ml Vial) 2 ml PRN 1X PRN 08/15/19 07:00 08/16/19 06:59 DC Linezolid/Dextrose 300 ml @ 300 mls/hr Q12HR 09/04/19 09:00 09/07/19 08:11 DC 09/06/19 21:08 300 MLS/HR Lorazepam (Ativan Inj) 0.25 mg PRN Q4HRS PRN 09/21/19 07:30 10/01/19 02:25 0.25 MG Magnesium Sulfate 50 ml @ 25 mls/hr 1X ONCE 10/04/19 08:15 10/04/19 10:14 DC Meropenem 1 gm/ Sodium Chloride 100 ml @ 200 mls/hr Q12HR 09/25/19 21:00 10/13/19 08:56 DC 10/13/19 08:27 200 MLS/HR Meropenem 500 mg/ Sodium Chloride 50 ml @ 100 mls/hr Q6HRS 09/12/19 18:00 09/14/19 09:59 DC 09/14/19 06:02 100 MLS/HR Methylprednisolone Sodium Succinate (SOLU-Medrol 125MG VIAL) 125 mg 1X ONCE 10/01/19 06:15 10/01/19 06:16 DC 10/01/19 06:26 125 MG Metoclopramide HCl (Reglan Vial) 10 mg PRN Q3HRS PRN 08/27/19 16:45 09/01/19 04:25 10 MG Metoprolol Tartrate (Lopressor Vial) 5 mg PRN Q6HRS PRN 09/28/19 09:00 10/06/19 10:14 5 MG Metronidazole 100 ml @ 100 mls/hr Q8HRS 08/02/19 10:00 08/09/19 08:10 DC 08/09/19 06:04 100 MLS/HR Micafungin Sodium 100 mg/Dextrose 100 ml @ 100 mls/hr Q24H 09/25/19 11:00 10/13/19 08:56 DC 10/12/19 12:34 100 MLS/HR Midazolam HCl (Versed) 2 mg 1X ONCE 09/25/19 15:00 09/25/19 15:01 DC 09/25/19 15:28 1 MG Midazolam HCl 100 mg/Sodium Chloride 100 ml @ 7 mls/hr CONT PRN 07/16/19 16:00 09/21/19 14:38 DC 07/27/19 15:35 7 MLS/HR Midazolam HCl 50 mg/Sodium Chloride 50 ml @ 0 mls/hr CONT PRN 07/11/19 08:15 07/16/19 15:59 DC 07/14/19 22:39 7 MLS/HR Morphine Sulfate (Morphine Sulfate) 2 mg PRN Q2HR PRN 07/04/19 05:00 07/05/19 14:15 DC 07/05/19 12:26 2 MG Multi-Ingred Cream/Lotion/Oil/ Oint (Artificial Tears Eye Ointment) 1 ramu PRN Q1HR PRN 07/13/19 17:30 09/21/19 14:39 DC 08/01/19 08:19 1 RAMU Naloxone HCl (Narcan) 0.4 mg STK-MED ONCE 09/25/19 14:48 09/25/19 14:48 DC Norepinephrine Bitartrate 8 mg/ Dextrose 258 ml @ 13.332 mls/ hr CONT PRN 09/25/19 06:30 09/25/19 21:46 13.332 MLS/HR Ondansetron HCl (Zofran) 4 mg STK-MED ONCE 08/15/19 10:56 08/15/19 10:57 DC Pantoprazole Sodium (PROTONIX VIAL for IV PUSH) 40 mg DAILYAC 07/04/19 11:30 10/14/19 07:30 40 MG Phenylephrine HCl (PHENYLEPHRINE in 0.9% NACL PF) 1 mg STK-MED ONCE 08/15/19 12:34 08/15/19 12:34 DC Piperacillin Sod/ Tazobactam Sod 3.375 gm/Sodium Chloride 50 ml @ 100 mls/hr Q6HRS 09/14/19 12:00 09/22/19 07:26 DC 09/22/19 06:10 100 MLS/HR Piperacillin Sod/ Tazobactam Sod 4.5 gm/Sodium Chloride 100 ml @ 200 mls/hr 1X ONCE 07/04/19 06:00 07/04/19 06:29 DC 07/04/19 05:44 200 MLS/HR Potassium Chloride 110 meq/ Magnesium Sulfate 20 meq/ Multivitamins 10 ml/Chromium/ Copper/Manganese/ Seleni/Zn 1 ml/ Insulin Human Regular 15 unit/ Total Parenteral Nutrition/Amino Acids/Dextrose/ Fat Emulsion Intravenous 1,800 ml @ 75 mls/hr TPN CONT 09/11/19 22:00 09/12/19 21:59 DC 09/11/19 22:48 75 MLS/HR Potassium Chloride 15 meq/ Bicarbonate Dialysis Soln w/ out KCl 5,007.5 ml @ 1,000 mls/ hr Q5H1M 07/17/19 20:00 07/21/19 13:08 DC 07/20/19 18:14 1,000 MLS/HR Potassium Chloride 20 meq/ Bicarbonate Dialysis Soln w/ out KCl 5,010 ml @ 1,000 mls/hr Q5H1M 07/13/19 16:00 07/17/19 19:59 DC 07/17/19 14:54 1,000 MLS/HR Potassium Chloride 40 meq/ Potassium Acetate 60 meq/Magnesium Sulfate 10 meq/ Multivitamins 10 ml/Chromium/ Copper/Manganese/ Seleni/Zn 1 ml/ Insulin Human Regular 20 unit/ Total Parenteral Nutrition/Amino Acids/Dextrose/ Fat Emulsion Intravenous 1,800 ml @ 75 mls/hr TPN CONT 09/22/19 22:00 09/23/19 21:59 DC 09/23/19 00:03 75 MLS/HR Potassium Chloride 70 meq/ Magnesium Sulfate 20 meq/ Multivitamins 10 ml/Chromium/ Copper/Manganese/ Seleni/Zn 1 ml/ Insulin Human Regular 15 unit/ Total Parenteral Nutrition/Amino Acids/Dextrose/ Fat Emulsion Intravenous 1,800 ml @ 75 mls/hr TPN CONT 09/16/19 22:00 09/17/19 21:59 DC 09/16/19 23:13 75 MLS/HR Potassium Chloride 75 meq/ Magnesium Sulfate 15 meq/ Multivitamins 10 ml/Chromium/ Copper/Manganese/ Seleni/Zn 0.5 ml/ Insulin Human Regular 15 unit/ Total Parenteral Nutrition/Amino Acids/Dextrose/ Fat Emulsion Intravenous 1,920 ml @ 80 mls/hr TPN CONT 08/27/19 22:00 08/28/19 21:59 DC 08/27/19 22:41 80 MLS/HR Potassium Chloride 75 meq/ Magnesium Sulfate 15 meq/Calcium Gluconate 8 meq/ Multivitamins 10 ml/Chromium/ Copper/Manganese/ Seleni/Zn 0.5 ml/ Insulin Human Regular 15 unit/ Total Parenteral Nutrition/Amino Acids/Dextrose/ Fat Emulsion Intravenous 1,920 ml @ 80 mls/hr TPN CONT 08/25/19 22:00 08/26/19 21:59 DC 08/25/19 22:28 80 MLS/HR Potassium Chloride 75 meq/ Magnesium Sulfate 15 meq/Calcium Gluconate 8 meq/ Multivitamins 10 ml/Chromium/ Copper/Manganese/ Seleni/Zn 0.5 ml/ Insulin Human Regular 20 unit/ Total Parenteral Nutrition/Amino Acids/Dextrose/ Fat Emulsion Intravenous 1,920 ml @ 80 mls/hr TPN CONT 08/24/19 22:00 08/25/19 21:59 DC 08/24/19 22:00 80 MLS/HR Potassium Chloride 75 meq/ Magnesium Sulfate 15 meq/Calcium Gluconate 8 meq/ Multivitamins 10 ml/Chromium/ Copper/Manganese/ Seleni/Zn 0.5 ml/ Insulin Human Regular 25 unit/ Total Parenteral Nutrition/Amino Acids/Dextrose/ Fat Emulsion Intravenous 1,920 ml @ 80 mls/hr TPN CONT 08/22/19 22:00 08/23/19 21:59 DC 08/22/19 23:08 80 MLS/HR Potassium Chloride 75 meq/ Magnesium Sulfate 20 meq/Calcium Gluconate 10 meq/ Multivitamins 10 ml/Chromium/ Copper/Manganese/ Seleni/Zn 0.5 ml/ Insulin Human Regular 25 unit/ Total Parenteral Nutrition/Amino Acids/Dextrose/ Fat Emulsion Intravenous 1,920 ml @ 80 mls/hr TPN CONT 08/21/19 22:00 08/22/19 21:59 DC 08/21/19 22:04 80 MLS/HR Potassium Chloride 75 meq/ Magnesium Sulfate 20 meq/Calcium Gluconate 10 meq/ Multivitamins 10 ml/Chromium/ Copper/Manganese/ Seleni/Zn 0.5 ml/ Insulin Human Regular 30 unit/ Total Parenteral Nutrition/Amino Acids/Dextrose/ Fat Emulsion Intravenous 1,920 ml @ 80 mls/hr TPN CONT 08/20/19 22:00 08/21/19 22:00 DC 08/20/19 21:51 80 MLS/HR Potassium Chloride 80 meq/ Magnesium Sulfate 20 meq/ Multivitamins 10 ml/Chromium/ Copper/Manganese/ Seleni/Zn 0.5 ml/ Insulin Human Regular 15 unit/ Total Parenteral Nutrition/Amino Acids/Dextrose/ Fat Emulsion Intravenous 1,920 ml @ 80 mls/hr TPN CONT 08/30/19 22:00 08/31/19 21:59 DC 08/30/19 21:40 80 MLS/HR Potassium Chloride 80 meq/ Magnesium Sulfate 20 meq/ Multivitamins 10 ml/Chromium/ Copper/Manganese/ Seleni/Zn 1 ml/ Insulin Human Regular 15 unit/ Total Parenteral Nutrition/Amino Acids/Dextrose/ Fat Emulsion Intravenous 1,800 ml @ 75 mls/hr TPN CONT 09/18/19 22:00 09/19/19 21:59 DC 09/18/19 21:54 75 MLS/HR Potassium Chloride 90 meq/ Magnesium Sulfate 20 meq/ Multivitamins 10 ml/Chromium/ Copper/Manganese/ Seleni/Zn 1 ml/ Insulin Human Regular 15 unit/ Total Parenteral Nutrition/Amino Acids/Dextrose/ Fat Emulsion Intravenous 1,800 ml @ 75 mls/hr TPN CONT 09/07/19 22:00 09/08/19 21:59 DC 09/07/19 22:28 75 MLS/HR Potassium Chloride 90 meq/ Magnesium Sulfate 20 meq/ Multivitamins 10 ml/Chromium/ Copper/Manganese/ Seleni/Zn 1 ml/ Insulin Human Regular 20 unit/ Total Parenteral Nutrition/Amino Acids/Dextrose/ Fat Emulsion Intravenous 1,800 ml @ 75 mls/hr TPN CONT 09/21/19 22:00 09/22/19 21:59 DC 09/21/19 23:13 75 MLS/HR Potassium Chloride/Water 100 ml @ 100 mls/hr Q1H 10/05/19 08:00 10/05/19 09:59 DC 10/05/19 09:12 100 MLS/HR Potassium Phosphate 20 mmol/ Sodium Chloride 106.6667 ml @ 51.667 m... 1X ONCE 07/13/19 13:00 07/13/19 15:03 DC 07/13/19 12:51 51.667 MLS/HR Potassium Acetate 30 meq/Magnesium Sulfate 14 meq/ Multivitamins 10 ml/Chromium/ Copper/Manganese/ Seleni/Zn 1 ml/ Insulin Human Regular 15 unit/ Sodium Chloride 20 meq/Potassium Chloride 30 meq/ Total Parenteral Nutrition/Amino Acids/Dextrose/ Fat Emulsion Intravenous 1,920 ml @ 80 mls/hr TPN CONT 10/11/19 22:00 10/12/19 21:59 DC 10/11/19 21:46 80 MLS/HR Potassium Acetate 30 meq/Magnesium Sulfate 20 meq/ Calcium Gluconate 10 meq/ Multivitamins 10 ml/Chromium/ Copper/Manganese/ Seleni/Zn 0.5 ml/ Insulin Human Regular 30 unit/ Potassium Chloride 30 meq/ Total Parenteral Nutrition/Amino Acids/Dextrose/ Fat Emulsion Intravenous 1,920 ml @ 80 mls/hr TPN CONT 08/19/19 22:00 08/20/19 21:59 DC 08/19/19 22:34 80 MLS/HR Potassium Acetate 40 meq/Magnesium Sulfate 10 meq/ Multivitamins 10 ml/Chromium/ Copper/Manganese/ Seleni/Zn 1 ml/ Insulin Human Regular 20 unit/ Total Parenteral Nutrition/Amino Acids/Dextrose/ Fat Emulsion Intravenous 1,920 ml @ 80 mls/hr TPN CONT 10/04/19 22:00 10/05/19 21:59 DC 10/04/19 21:32 80 MLS/HR Potassium Acetate 40 meq/Magnesium Sulfate 5 meq/ Multivitamins 10 ml/Chromium/ Copper/Manganese/ Seleni/Zn 1 ml/ Insulin Human Regular 30 unit/ Total Parenteral Nutrition/Amino Acids/Dextrose/ Fat Emulsion Intravenous 1,920 ml @ 80 mls/hr TPN CONT 10/03/19 22:00 10/04/19 19:34 DC 10/03/19 21:54 80 MLS/HR Potassium Acetate 55 meq/Magnesium Sulfate 20 meq/ Calcium Gluconate 10 meq/ Multivitamins 10 ml/Chromium/ Copper/Manganese/ Seleni/Zn 0.5 ml/ Insulin Human Regular 30 unit/ Total Parenteral Nutrition/Amino Acids/Dextrose/ Fat Emulsion Intravenous 1,920 ml @ 80 mls/hr TPN CONT 08/18/19 22:00 08/19/19 21:59 DC 08/19/19 01:00 80 MLS/HR Potassium Acetate 55 meq/Magnesium Sulfate 20 meq/ Calcium Gluconate 10 meq/ Multivitamins 10 ml/Chromium/ Copper/Manganese/ Seleni/Zn 0.5 ml/ Insulin Human Regular 35 unit/ Total Parenteral Nutrition/Amino Acids/Dextrose/ Fat Emulsion Intravenous 1,920 ml @ 80 mls/hr TPN CONT 08/16/19 22:00 08/17/19 21:59 DC 08/16/19 22:02 80 MLS/HR Potassium Acetate 60 meq/Magnesium Sulfate 10 meq/ Multivitamins 10 ml/Chromium/ Copper/Manganese/ Seleni/Zn 1 ml/ Insulin Human Regular 20 unit/ Total Parenteral Nutrition/Amino Acids/Dextrose/ Fat Emulsion Intravenous 1,920 ml @ 80 mls/hr TPN CONT 10/05/19 22:00 10/06/19 21:59 DC 10/05/19 21:55 80 MLS/HR Potassium Acetate 60 meq/Magnesium Sulfate 14 meq/ Multivitamins 10 ml/Chromium/ Copper/Manganese/ Seleni/Zn 1 ml/ Insulin Human Regular 15 unit/ Sodium Chloride 20 meq/Total Parenteral Nutrition/Amino Acids/Dextrose/ Fat Emulsion Intravenous 1,920 ml @ 80 mls/hr TPN CONT 10/10/19 22:00 10/11/19 21:59 DC 10/10/19 21:54 80 MLS/HR Potassium Acetate 60 meq/Magnesium Sulfate 14 meq/ Multivitamins 10 ml/Chromium/ Copper/Manganese/ Seleni/Zn 1 ml/ Insulin Human Regular 15 unit/ Total Parenteral Nutrition/Amino Acids/Dextrose/ Fat Emulsion Intravenous 1,920 ml @ 80 mls/hr TPN CONT 10/09/19 22:00 10/10/19 21:59 DC 10/09/19 22:22 80 MLS/HR Potassium Acetate 60 meq/Magnesium Sulfate 14 meq/ Multivitamins 10 ml/Chromium/ Copper/Manganese/ Seleni/Zn 1 ml/ Insulin Human Regular 20 unit/ Total Parenteral Nutrition/Amino Acids/Dextrose/ Fat Emulsion Intravenous 1,920 ml @ 80 mls/hr TPN CONT 10/06/19 22:00 10/07/19 21:59 DC 10/06/19 22:26 80 MLS/HR Potassium Acetate 60 meq/Magnesium Sulfate 5 meq/ Multivitamins 10 ml/Chromium/ Copper/Manganese/ Seleni/Zn 1 ml/ Insulin Human Regular 30 unit/ Total Parenteral Nutrition/Amino Acids/Dextrose/ Fat Emulsion Intravenous 1,920 ml @ 80 mls/hr TPN CONT 09/24/19 22:00 09/25/19 21:59 DC 09/24/19 21:54 80 MLS/HR Potassium Acetate 65 meq/Magnesium Sulfate 20 meq/ Calcium Gluconate 10 meq/ Multivitamins 10 ml/Chromium/ Copper/Manganese/ Seleni/Zn 0.5 ml/ Insulin Human Regular 30 unit/ Total Parenteral Nutrition/Amino Acids/Dextrose/ Fat Emulsion Intravenous 1,920 ml @ 80 mls/hr TPN CONT 08/17/19 22:00 08/18/19 21:59 DC 08/17/19 22:22 80 MLS/HR Potassium Acetate 80 meq/Magnesium Sulfate 5 meq/ Multivitamins 10 ml/Chromium/ Copper/Manganese/ Seleni/Zn 1 ml/ Insulin Human Regular 20 unit/ Total Parenteral Nutrition/Amino Acids/Dextrose/ Fat Emulsion Intravenous 1,920 ml @ 80 mls/hr TPN CONT 09/23/19 22:00 09/24/19 21:59 DC 09/23/19 21:59 80 MLS/HR Prochlorperazine Edisylate (Compazine) 5 mg PACU PRN PRN 08/15/19 07:00 08/16/19 06:59 DC Propofol 100 ml @ 0 mls/hr CONT PRN 10/01/19 06:00 10/08/19 23:50 2.7 MLS/HR Ringer's Solution 1,000 ml @ 30 mls/hr Q24H 08/15/19 07:00 08/15/19 18:59 DC Rocuronium [place] (Zemuron) 50 mg STK-MED ONCE 08/15/19 10:56 08/15/19 10:57 DC Saliva Substitute (Biotene Moisturizing Mouth) 2 spray PRN Q15MIN PRN 09/08/19 11:00 Sevoflurane (Ultane) 60 ml STK-MED ONCE 08/15/19 12:26 08/15/19 12:27 DC Sodium Bicarbonate 50 meq/Sodium Chloride 1,050 ml @ 75 mls/hr Q14H 07/06/19 07:30 07/11/19 10:28 DC 07/10/19 21:10 75 MLS/HR Sodium Acetate 50 meq/Potassium Acetate 55 meq/ Magnesium Sulfate 20 meq/Calcium Gluconate 10 meq/ Multivitamins 10 ml/Chromium/ Copper/Manganese/ Seleni/Zn 0.5 ml/ Insulin Human Regular 35 unit/ Total Parenteral Nutrition/Amino Acids/Dextrose/ Fat Emulsion Intravenous 1,800 ml @ 75 mls/hr TPN CONT 08/13/19 22:00 08/14/19 21:59 DC 08/13/19 22:03 75 MLS/HR Sodium Bicarbonate (Sodium Bicarb Adult 8.4% Syr) 50 meq 1X ONCE 09/25/19 22:00 09/25/19 22:01 DC 09/25/19 21:47 50 MEQ Sodium Chloride (Normal Saline Flush) 3 ml QSHIFT PRN 08/15/19 13:45 Sodium Chloride 80 meq/Potassium Chloride 30 meq/ Potassium Acetate 30 meq/Magnesium Sulfate 14 meq/ Multivitamins 10 ml/Chromium/ Copper/Manganese/ Seleni/Zn 1 ml/ Insulin Human Regular 15 unit/ Total Parenteral Nutrition/Amino Acids/Dextrose/ Fat Emulsion Intravenous 1,920 ml @ 80 mls/hr TPN CONT 10/14/19 22:00 10/15/19 21:59 10/14/19 21:32 80 MLS/HR Sodium Chloride 90 meq/Calcium Gluconate 10 meq/ Multivitamins 10 ml/Chromium/ Copper/Manganese/ Seleni/Zn 0.5 ml/ Total Parenteral Nutrition/Amino Acids/Dextrose/ Fat Emulsion Intravenous 1,512 ml @ 63 mls/hr TPN CONT 07/06/19 22:00 07/07/19 21:59 DC 07/06/19 22:06 63 MLS/HR Sodium Chloride 90 meq/Calcium Gluconate 10 meq/ Multivitamins 10 ml/Chromium/ Copper/Manganese/ Seleni/Zn 1 ml/ Total Parenteral Nutrition/Amino Acids/Dextrose/ Fat Emulsion Intravenous 55.005 ml @ 2.292 mls/hr TPN CONT 07/06/19 22:00 07/06/19 12:33 DC Sodium Chloride 90 meq/Magnesium Sulfate 10 meq/ Calcium Gluconate 20 meq/ Multivitamins 10 ml/Chromium/ Copper/Manganese/ Seleni/Zn 0.5 ml/ Total Parenteral Nutrition/Amino Acids/Dextrose/ Fat Emulsion Intravenous 1,512 ml @ 63 mls/hr TPN CONT 07/07/19 22:00 07/08/19 21:59 DC 07/07/19 22:25 63 MLS/HR Sodium Chloride 90 meq/Magnesium Sulfate 12 meq/ Calcium Gluconate 15 meq/ Multivitamins 10 ml/Chromium/ Copper/Manganese/ Seleni/Zn 0.5 ml/ Insulin Human Regular 25 unit/ Total Parenteral Nutrition/Amino Acids/Dextrose/ Fat Emulsion Intravenous 1,400 ml @ 58.333 mls/ hr TPN CONT 07/27/19 22:00 07/28/19 21:59 DC 07/27/19 21:41 58.333 MLS/HR Sodium Chloride 90 meq/Potassium Chloride 15 meq/ Magnesium Sulfate 12 meq/Calcium Gluconate 15 meq/ Multivitamins 10 ml/Chromium/ Copper/Manganese/ Seleni/Zn 0.5 ml/ Insulin Human Regular 25 unit/ Total Parenteral Nutrition/Amino Acids/Dextrose/ Fat Emulsion Intravenous 1,400 ml @ 58.333 mls/ hr TPN CONT 07/26/19 22:00 4/8/20 21:59 DC 07/26/19 22:13 58.333 MLS/HR Sodium Chloride 90 meq/Potassium Chloride 15 meq/ Potassium Phosphate 10 mmol/ Magnesium Sulfate 8 meq/Calcium Gluconate 15 meq/ Multivitamins 10 ml/Chromium/ Copper/Manganese/ Seleni/Zn 0.5 ml/ Insulin Human Regular 25 unit/ Total Parenteral Nutrition/Amino Acids/Dextrose/ Fat Emulsion Intravenous 1,400 ml @ 58.333 mls/ hr TPN CONT 07/24/19 22:00 07/25/19 21:59 DC 07/24/19 21:20 58.333 MLS/HR Sodium Chloride 90 meq/Potassium Chloride 15 meq/ Potassium Phosphate 10 mmol/ Magnesium Sulfate 10 meq/Calcium Gluconate 20 meq/ Multivitamins 10 ml/Chromium/ Copper/Manganese/ Seleni/Zn 0.5 ml/ Total Parenteral Nutrition/Amino Acids/Dextrose/ Fat Emulsion Intravenous 1,400 ml @ 58.333 mls/ hr TPN CONT 07/11/19 22:00 07/12/19 21:59 DC 07/11/19 21:42 58.333 MLS/HR Sodium Chloride 90 meq/Potassium Chloride 15 meq/ Potassium Phosphate 10 mmol/ Magnesium Sulfate 12 meq/Calcium Gluconate 15 meq/ Multivitamins 10 ml/Chromium/ Copper/Manganese/ Seleni/Zn 0.5 ml/ Insulin Human Regular 25 unit/ Total Parenteral Nutrition/Amino Acids/Dextrose/ Fat Emulsion Intravenous 1,400 ml @ 58.333 mls/ hr TPN CONT 07/25/19 22:00 07/26/19 21:59 DC 07/25/19 22:24 58.333 MLS/HR Sodium Chloride 90 meq/Potassium Chloride 15 meq/ Potassium Phosphate 15 mmol/ Magnesium Sulfate 10 meq/Calcium Gluconate 15 meq/ Multivitamins 10 ml/Chromium/ Copper/Manganese/ Seleni/Zn 0.5 ml/ Total Parenteral Nutrition/Amino Acids/Dextrose/ Fat Emulsion Intravenous 1,400 ml @ 58.333 mls/ hr TPN CONT 07/12/19 22:00 07/13/19 21:59 DC 07/12/19 22:17 58.333 MLS/HR Sodium Chloride 90 meq/Potassium Chloride 15 meq/ Potassium Phosphate 15 mmol/ Magnesium Sulfate 10 meq/Calcium Gluconate 20 meq/ Multivitamins 10 ml/Chromium/ Copper/Manganese/ Seleni/Zn 0.5 ml/ Total Parenteral Nutrition/Amino Acids/Dextrose/ Fat Emulsion Intravenous 1,200 ml @ 50 mls/hr TPN CONT 07/10/19 22:00 07/10/19 14:17 DC Sodium Chloride 90 meq/Potassium Chloride 15 meq/ Potassium Phosphate 18 mmol/ Magnesium Sulfate 8 meq/Calcium Gluconate 15 meq/ Multivitamins 10 ml/Chromium/ Copper/Manganese/ Seleni/Zn 0.5 ml/ Insulin Human Regular 10 unit/ Total Parenteral Nutrition/Amino Acids/Dextrose/ Fat Emulsion Intravenous 1,400 ml @ 58.333 mls/ hr TPN CONT 07/15/19 22:00 07/16/19 21:59 DC 07/15/19 21:43 58.333 MLS/HR Sodium Chloride 90 meq/Potassium Chloride 15 meq/ Potassium Phosphate 18 mmol/ Magnesium Sulfate 8 meq/Calcium Gluconate 15 meq/ Multivitamins 10 ml/Chromium/ Copper/Manganese/ Seleni/Zn 0.5 ml/ Insulin Human Regular 15 unit/ Total Parenteral Nutrition/Amino Acids/Dextrose/ Fat Emulsion Intravenous 1,400 ml @ 58.333 mls/ hr TPN CONT 07/18/19 22:00 07/19/19 21:59 DC 07/18/19 21:47 58.333 MLS/HR Sodium Chloride 90 meq/Potassium Chloride 15 meq/ Potassium Phosphate 18 mmol/ Magnesium Sulfate 8 meq/Calcium Gluconate 15 meq/ Multivitamins 10 ml/Chromium/ Copper/Manganese/ Seleni/Zn 0.5 ml/ Insulin Human Regular 20 unit/ Total Parenteral Nutrition/Amino Acids/Dextrose/ Fat Emulsion Intravenous 1,400 ml @ 58.333 mls/ hr TPN CONT 07/21/19 22:00 07/22/19 21:59 DC 07/21/19 22:45 58.333 MLS/HR Sodium Chloride 90 meq/Potassium Chloride 15 meq/ Potassium Phosphate 18 mmol/ Magnesium Sulfate 8 meq/Calcium Gluconate 15 meq/ Multivitamins 10 ml/Chromium/ Copper/Manganese/ Seleni/Zn 0.5 ml/ Total Parenteral Nutrition/Amino Acids/Dextrose/ Fat Emulsion Intravenous 1,400 ml @ 58.333 mls/ hr TPN CONT 07/14/19 22:00 07/15/19 21:59 DC 07/14/19 22:00 58.333 MLS/HR Sodium Chloride 90 meq/Potassium Phosphate 15 mmol/ Magnesium Sulfate 12 meq/Calcium Gluconate 15 meq/ Multivitamins 10 ml/Chromium/ Copper/Manganese/ Seleni/Zn 0.5 ml/ Insulin Human Regular 30 unit/ Total Parenteral Nutrition/Amino Acids/Dextrose/ Fat Emulsion Intravenous 1,400 ml @ 58.333 mls/ hr TPN CONT 07/29/19 22:00 07/30/19 21:59 DC 07/29/19 21:49 58.333 MLS/HR Sodium Chloride 90 meq/Potassium Phosphate 15 mmol/ Magnesium Sulfate 12 meq/Calcium Gluconate 15 meq/ Multivitamins 10 ml/Chromium/ Copper/Manganese/ Seleni/Zn 0.5 ml/ Insulin Human Regular 40 unit/ Total Parenteral Nutrition/Amino Acids/Dextrose/ Fat Emulsion Intravenous 1,400 ml @ 58.333 mls/ hr TPN CONT 07/30/19 22:00 07/31/19 21:59 DC 07/30/19 21:21 58.333 MLS/HR Sodium Chloride 90 meq/Potassium Phosphate 19 mmol/ Magnesium Sulfate 12 meq/Calcium Gluconate 15 meq/ Multivitamins 10 ml/Chromium/ Copper/Manganese/ Seleni/Zn 0.5 ml/ Insulin Human Regular 40 unit/ Total Parenteral Nutrition/Amino Acids/Dextrose/ Fat Emulsion Intravenous 1,400 ml @ 58.333 mls/ hr TPN CONT 07/31/19 22:00 08/01/19 21:59 DC 07/31/19 21:54 58.333 MLS/HR Sodium Chloride 90 meq/Potassium Phosphate 5 mmol/ Magnesium Sulfate 12 meq/Calcium Gluconate 15 meq/ Multivitamins 10 ml/Chromium/ Copper/Manganese/ Seleni/Zn 0.5 ml/ Insulin Human Regular 30 unit/ Total Parenteral Nutrition/Amino Acids/Dextrose/ Fat Emulsion Intravenous 1,400 ml @ 58.333 mls/ hr TPN CONT 07/28/19 22:00 07/29/19 21:59 DC 07/28/19 22:08 58.333 MLS/HR Sodium Chloride 100 meq/Potassium Chloride 40 meq/ Magnesium Sulfate 15 meq/Calcium Gluconate 15 meq/ Multivitamins 10 ml/Chromium/ Copper/Manganese/ Seleni/Zn 0.5 ml/ Insulin Human Regular 35 unit/ Total Parenteral Nutrition/Amino Acids/Dextrose/ Fat Emulsion Intravenous 1,400 ml @ 58.333 mls/ hr TPN CONT 08/07/19 22:00 08/08/19 21:59 DC 08/07/19 22:46 58.333 MLS/HR Sodium Chloride 100 meq/Potassium Chloride 40 meq/ Magnesium Sulfate 20 meq/Calcium Gluconate 10 meq/ Multivitamins 10 ml/Chromium/ Copper/Manganese/ Seleni/Zn 0.5 ml/ Insulin Human Regular 35 unit/ Total Parenteral Nutrition/Amino Acids/Dextrose/ Fat Emulsion Intravenous 1,400 ml @ 58.333 mls/ hr TPN CONT 08/11/19 22:00 08/12/19 21:59 DC 08/12/19 00:06 58.333 MLS/HR Sodium Chloride 100 meq/Potassium Chloride 40 meq/ Magnesium Sulfate 20 meq/Calcium Gluconate 15 meq/ Multivitamins 10 ml/Chromium/ Copper/Manganese/ Seleni/Zn 0.5 ml/ Insulin Human Regular 35 unit/ Total Parenteral Nutrition/Amino Acids/Dextrose/ Fat Emulsion Intravenous 1,400 ml @ 58.333 mls/ hr TPN CONT 08/10/19 22:00 08/11/19 21:59 DC 08/10/19 22:27 58.333 MLS/HR Sodium Chloride 100 meq/Potassium Phosphate 10 mmol/ Magnesium Sulfate 12 meq/Calcium Gluconate 15 meq/ Multivitamins 10 ml/Chromium/ Copper/Manganese/ Seleni/Zn 0.5 ml/ Insulin Human Regular 35 unit/ Potassium Chloride 20 meq/ Total Parenteral Nutrition/Amino Acids/Dextrose/ Fat Emulsion Intravenous 1,400 ml @ 58.333 mls/ hr TPN CONT 08/04/19 22:00 08/05/19 21:59 DC 08/04/19 22:10 58.333 MLS/HR Sodium Chloride 100 meq/Potassium Phosphate 19 mmol/ Magnesium Sulfate 12 meq/Calcium Gluconate 15 meq/ Multivitamins 10 ml/Chromium/ Copper/Manganese/ Seleni/Zn 0.5 ml/ Insulin Human Regular 40 unit/ Potassium Chloride 20 meq/ Total Parenteral Nutrition/Amino Acids/Dextrose/ Fat Emulsion Intravenous 1,400 ml @ 58.333 mls/ hr TPN CONT 08/03/19 22:00 08/04/19 21:59 DC 08/03/19 21:20 58.333 MLS/HR Sodium Chloride 100 meq/Potassium Phosphate 5 mmol/ Magnesium Sulfate 12 meq/Calcium Gluconate 15 meq/ Multivitamins 10 ml/Chromium/ Copper/Manganese/ Seleni/Zn 0.5 ml/ Insulin Human Regular 35 unit/ Potassium Chloride 20 meq/ Total Parenteral Nutrition/Amino Acids/Dextrose/ Fat Emulsion Intravenous 1,400 ml @ 58.333 mls/ hr TPN CONT 08/05/19 22:00 08/06/19 21:59 DC 08/05/19 22:59 58.333 MLS/HR Succinylcholine Chloride (Anectine) 120 mg 1X ONCE 07/11/19 08:30 07/11/19 08:31 DC 07/11/19 08:34 120 MG Vecuronium [place] (Norcuron Bolus) 6 mg PRN Q6HRS PRN 08/25/19 19:15 08/25/19 19:35 DC Labs: Lab Laboratory Tests Test 10/14/19 13:10 10/14/19 17:54 10/15/19 00:20 10/15/19 06:07 Glucose (Fingerstick) 134 mg/dL (70-99) 117 mg/dL (70-99) 143 mg/dL (70-99) 134 mg/dL (70-99) Micro NEG ALEXANDRA 56 PSEUDOMONAS AERUGINOSA ANTIBIOTIC RESULT INTERPRETATION AMIKACIN <=16 S AZTREONAM >16 R CEFTAZIDIME >16 R CIPROFLOXACIN <=0.25 S CEFEPIME 16 I GENTAMICIN <=2 S LEVOFLOXACIN <=0.5 S CONTINUED ON NEXT PAGE RUN DATE: 09/28/19 [facility] [place] [facility] *LIVE* PAGE 2 RUN TIME: 1121 Specimen Inquiry SPEC: [id number] PATIENT: SCOTT CUELLAR [id number] (Continued) Procedure Result ANTIMICROBIAL SUSCEPTIBILITY Preliminary (continued) MEROPENEM <=1 S PIPERACILLIN/TAZOBACTAM 64 S TOBRAMYCIN <=2 S Unless otherwise specified, Testing Performed by: [address] [address] For Inquires, the Physician may contact the Microbiology department at [phone] Objective: Assessment: Patient with prolonged hospitalization Multiple medical problems Multiple surgical procedures Fever Acute pancreatitis with persistent necrosis CT a/p 4/9 Increased ascites. 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 Sequela of pancreatitis with extensive pseudocysts again demonstrated, the right-sided collections are slightly larger since the prior exam, the left-sided collections are stable. 09/24 fluid cult PSAE (MDRO),yeast Cholelithiasis with thickening of the gallbladder wall. Leucocytosis JUANA,Hyperkalemia, Metabolic acidosis off dialysis Acute hypoxic resp failure ,bilateral pleural effusion and atelectasis hypocalcemia Prediabetes HTN s/p trach Abdominal fluid culture MDRO Pseudomonas, yeast Plan: Plan of Care Observe off antibiotics Monitor labs/temp General surgery following Monitor drain output Maintain aspiration precaution Supportive care Contact isolation for CRE/MDRO Discussed with nursing staff YUNIOR JONES MD Oct 15, 2019 08:24
--- NOTE | 2019-10-15 08:31 | PDOC ---
SURGICAL PROGRESS NOTE Subjective sleeping d/w nursing Vital Signs Vital Signs Date Time Temp Pulse Resp B/P (MAP) Pulse Ox O2 Delivery O2 Flow Rate FiO2 10/15/19 08:00 98.6 116 26 122/67 (85) 99 Tracheal Collar 98.6 10/15/19 04:42 8.0 I&O Intake and Output 10/15/19 07:00 Intake Total 19.5 ml Output Total 1705 ml Balance -1685.5 ml IV Total 19.5 ml Output Urine Total 1535 ml Gastric Drainage Total 100 ml Chest Tube Drainage Total 60 ml Drainage Total 10 ml PATIENT HAS A ROSARIO: Yes General: No acute distress HEENT: Other (trach) Lungs: Other (ng in place) Abdomen: Soft, Other (drains in place) Labs Laboratory Tests Test 10/13/19 12:50 10/13/19 17:39 10/14/19 00:23 10/14/19 05:12 Glucose (Fingerstick) 150 mg/dL (70-99) 139 mg/dL (70-99) 138 mg/dL (70-99) 125 mg/dL (70-99) Test 10/14/19 05:15 10/14/19 13:10 10/14/19 17:54 10/15/19 00:20 White Blood Count 10.9 x10^3/uL (4.0-11.0) Red Blood Count 3.01 x10^6/uL (3.50-5.40) Hemoglobin 8.6 g/dL (12.0-15.5) Hematocrit 25.5 % (36.0-47.0) Mean Corpuscular Volume 85 fL (79-100) Mean Corpuscular Hemoglobin 29 pg (25-35) Mean Corpuscular Hemoglobin Concent 34 g/dL (31-37) Red Cell Distribution Width 18.1 % (11.5-14.5) Platelet Count 380 x10^3/uL (140-400) Neutrophils (%) (Auto) 78 % (31-73) Lymphocytes (%) (Auto) 12 % (24-48) Monocytes (%) (Auto) 7 % (0-9) Eosinophils (%) (Auto) 2 % (0-3) Basophils (%) (Auto) 0 % (0-3) Neutrophils # (Auto) 8.5 x10^3/uL (1.8-7.7) Lymphocytes # (Auto) 1.3 x10^3/uL (1.0-4.8) Monocytes # (Auto) 0.8 x10^3/uL (0.0-1.1) Eosinophils # (Auto) 0.2 x10^3/uL (0.0-0.7) Basophils # (Auto) 0.0 x10^3/uL (0.0-0.2) Sodium Level 137 mmol/L (136-145) Potassium Level 4.1 mmol/L (3.5-5.1) Chloride Level 101 mmol/L (98-107) Carbon Dioxide Level 36 mmol/L (21-32) Anion Gap 0 (6-14) Blood Urea Nitrogen 15 mg/dL (7-20) Creatinine 0.6 mg/dL (0.6-1.0) Estimated GFR (Cockcroft-Gault) 106.3 BUN/Creatinine Ratio 25 (6-20) Glucose Level 126 mg/dL (70-99) Calcium Level 10.4 mg/dL (8.5-10.1) Phosphorus Level 4.4 mg/dL (2.6-4.7) Magnesium Level 2.1 mg/dL (1.8-2.4) Total Bilirubin 0.5 mg/dL (0.2-1.0) Aspartate Amino Transf (AST/SGOT) 19 U/L (15-37) Alanine Aminotransferase (ALT/SGPT) 14 U/L (14-59) Alkaline Phosphatase 161 U/L (46-116) Total Protein 4.6 g/dL (6.4-8.2) Albumin 1.1 g/dL (3.4-5.0) Albumin/Globulin Ratio 0.3 (1.0-1.7) Glucose (Fingerstick) 134 mg/dL (70-99) 117 mg/dL (70-99) 143 mg/dL (70-99) Test 10/15/19 06:07 Glucose (Fingerstick) 134 mg/dL (70-99) Laboratory Tests Test 10/14/19 13:10 10/14/19 17:54 10/15/19 00:20 10/15/19 06:07 Glucose (Fingerstick) 134 mg/dL (70-99) 117 mg/dL (70-99) 143 mg/dL (70-99) 134 mg/dL (70-99) Problem List Problems Medical Problems: (1) Acute pancreatitis Status: Acute (2) Cholelithiasis Status: Acute Assessment/Plan surgery planned thursday Justicifation of Admission Dx: Justifications for Admission: Justification of Admission Dx: Yes 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 APRN Oct 15, 2019 08:31
[2019-10-15] MEDS: ONDANSETRON PF 4 MG/2 ML VIAL. IV PRN ×2 (08:56→13:37)
[2019-10-15] MEDS: PANTOPRAZOLE IV PUSH 40 MG VIAL. IVP SCH (08:56)
[2019-10-15] MEDS: TPN PER PHARMACY MC PRN (09:38)
--- NOTE | 2019-10-15 09:39 | NUR ---
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, 8 inches Weight: 87.3 kg Current diet: NPO LABS: Sodium: 137 Potassium: 4.1 Chloride: 101 Calcium: 10.4 Corrected Calcium: 12.72 Magnesium: 2.1 CO2: 36 SCr: 0.6 Glucose: 117-143 Albumin: 1.1 AST: 19 ALT: 14 TPN FORMULA: TPN TYPE: Central Continuous AMINO ACIDS: 80 gm DEXTROSE: 250 gm LIPIDS: 20 gm SODIUM CHLORIDE: 80 mEq POTASSIUM CHLORIDE: 30 mEq POTASSIUM ACETATE: 30 mEq MAGNESIUM: 14 mEq INSULIN: 15 units MULTIPLE VITAMIN: 10 ml TRACE ELEMENTS: 1 ml(s) TPN PLAN: Continue same TPN. No labs ordered for AM due to patient stability. -BMP ordered for 10/16 R: Continue same TPN formula. Will monitor electrolytes, glucose, and tolerance to TPN. MIKAYLA CHU RPH, 10/15/19 0916
--- NOTE | 2019-10-15 10:31 | PDOC ---
PROGRESS NOTES Chief Complaint Chief Complaint History of Present Illness 48yo F w/ PMHx HTN, prediabetes who presented the emergency room complaints of abdominal pain. Patient described off and on 3 days. She states is constant, described as a squeezing sensation in a band-like distribution. + nausea, vomiting. She denies any fever or diarrhea. Patient denies any abdominal surgical procedures. She stateed is worse with movements, car ride. Pain initially was upper abdomen however now pretty much generalized. Last bowel movement was 07/03/2019. Nothing makes her pain better. Patient denies any shortness of breath. She does state the pain moves into her chest. Denies any headache or visual changes. Lipase 33199, AST 401, ALT 249, Bilirubin 1.4. CT abdomen confirms pancreatic inflammation, peripancreatic fluid and inflammatory changes around the pancreas consistent with pancreatitis. Cholelithiasis and 1.4cm uterine fibroid as well as possible left salpingitis. Admitted for further care Gallstone pancreatitis with necrosis. -CT A/P 09/23 showed multiple pseudocysts, slight larger on the right. s/p drains x , 09/24. + PSAE (MDRO-R Cefepime, Zosyn ALEXANDRA < 64) and yeast, -s/p drain 08/14. C. parapsilosis. s/p drain 08/23 + yeast & high amylase; s/p additional drain on 08/25. Drains removed. Ascites s/p paracentesis 08/02 & 08/23. C. parapsilosis JUANA. off HD. Impression and plan: Acute hypoxic Respiratory failure required mechanical ventilation Tracheostomy bilateral pleural effusions/pulm edema s/p Throacentesis on 10/03/2019 Severe Acute gallstone pancreatitis (not a surgical candidate at this time) with necrosis Acute kidney failure now requiring dialysis Gallstones (Calculus of gallbladder with acute cholecystitis without obstruction) HTN Intractable pain Intractable nausea Covid 19 negative. Acute on chronic anemia EEG: No seizure activityFever - better currently - intermittent could be from underlying pancreatitis blood cults 08/21 - neg so far ? Ileus with vomiting Abd distention - U/S and CT reviewed s/p 0.4 L of opaque, debris-containing ascites was removed 08/23 Acute pancreatitis with persistent necrosis Gallstone pancreatitis with necrosis. -CT A/P 09/23 showed multiple pseudocysts, slight larger on the right. s/p drains x 3, 09/24. + PSAE (MDRO-R Cefepime, Zosyn ALEXANDRA < 64) and yeast, -s/p drain 08/14. C. parapsilosis. s/p drain 08/23 + yeast & high amylase; s/p additional drain on 08/25. Drains removed. Ascites s/p paracentesis 08/02 & 08/23. C. parapsilosis JUANA. off HD. A large fluid collection in the pancreatic bed has slightly decreased in size, described below, the pancreas itself is difficult to visualize, which could be due to necrosis or obscuration of pancreatic parenchyma from the surrounding fluid collection.10/02 - 08/14 status post KAYLIN drain placement + C paropsilosis. s/p additional drains 08/25 Anemia - S/p PRBCs Cholelithiasis with thickening of the gallbladder wall. Leucocytosis improving JUANA, hyperkalemia, Metabolic acidosis off dialysis hypocalcemia Prediabetes HTN s/p trach ESRD on HD Hyperglycemia severe protein-caloric malnutrition Moderate to large left pleural effusion with atelectasis and collapse of most of the left lower lobe, stable FEN - albumin, NS at 80 cc/hr, TPN will start Mucomyst for secretions Off antibiotics PPX - SCDs, off lovenox currently, high risk for thrombosis but in light of her recent anemia and need for transfusion the risks do not outweigh benefits at this time. will continue to evaluate on a daily basis FULL CODE Dispo - ICU, critically ill Poor prognosis 37 MIN CC TIME History of Present Illness History of Present Illness 09/25: IR placed drain on 09/24. 4u PRBC after Hb drop. Hb 8.8 today. Off Levophed this morning. T-max 100.3. Much more lethargic today. CXR with left sided diffuse infiltrates. 09/26: Tachycardic overnight into the 140s. NGT clamped. On BIPAP currently. Drains with serosanguinous discharge. WBC 8, Tmax 99.6F. 09/27: Seen on [facility] in ICU. Hypertensive and tachycardic. Labs stable. blood stained drainage from drains. Afebrile. 09/28: Seen on [facility] shield in ICU. She is a bit confused, drowsy, but when sitting up is conversational and confusion somewhat clears. She is asking for more pain medication. Stable drains, still very tachy.Na 147 09/29: Patient vomited overnight. Aspirated. Tried to pull her trach out, she was told she would without her trach, she said "I know, I just want to go home". Hb 7.6. Afebrile, still very tachycardic. 1055ml out of right sided KAYLIN drain 09/30: Overnight hypoxic, on BIPAP. CXR with left sided white out lung. Sig nificant mucous plug suctioned by RT with improvement in her ABG after 2 hours this morning. Not really active, tired, lethargic. 890ml out of drains past 24 hours. On vent. D/w daughter bedside. 10/01: Still on vent overnight with copious pulmonary drainage on suctioning. Labs stable, UOP stable 1L. Drain output still significant with 1505mL. She has shown her phone password [id number] and made it clear she does not want her daughters to access her phone at this time. 6:15: Patient quite frail, she has had such a lengthy hospital stay that she is certainly depressed and as documented 3 days ago is wanting to go home. Most likely patient is also tired of being hospitalized with an end point no where in sight. Reassurance and encouragement provided during my visit. Plans for thoracentesis later in the day 10/03: No acute events reported overnight, case discussed with nursing staff patient in no acute distress, complaints of the abdomimal pain during my visit, patient is quite depressed, reassurance has been provided, discussed with nursing staff at bedside, replace electrolytes 10/04 off vent / on TS , no distress 10/12 Patient seen and examined ICU BED [id number] prognosis Sputum from 09/30 - growing PSA - may be colonization I to Meropenem add Cipro Continue meropenem, has MDRP PSAE September 24 from abd cont micafungin September 24 bleeding from Sx. site RLQ and firmness)stable oncology consulted Cholelithiasis. Mild thickened appearance of the gallbladder wall. sono 10/12 Mild right hydronephrosis.Fluid collection identified anterior to the pancreas. ct drainage 200 cc/24 hrs d/c antibiotics , observe 10/12 cxr pending 10/1210/14/2019 Patient having trouble with secretions this morning, no other complaints, discussed with surgical MANAGER WINTER. Plans for OR on Thursday. No fever above 99.9 overnight, remains tachycardic, medications reviewed. 10/15/2019 Patient with thick secretions, no other acute events reported overnight. Patient seems to be quite anxious, I have tried to provide reassurance during my encounter regarding her upcoming surgical procedure. Patient seems to be quite anxious and seems to experience panic attacks when she first wakes up thinking that is the day of surgery. At the present time she seems to be medically optimized for planned surgery, discussed with nursing staff at bedside Date: Aug 15, 2019 Pre-Op Diagnosis: Necrotizing pancreatitis Post-Op Diagnosis: same Procedure Performed: laparoscopic exploration Surgeon: Renzo Servin Asst: Dr. Arturo Harris Anesthesia Type: GETA plus local Blood Loss: 50 Specimans Obtained: cultures, debris Findings: 1000 cc ascites suctioned off, cultures sent, diffuse debris, obliteration of surgical planes preventing any meaningful exploration 09/19/2019 Patient seen and examined in the ICU She appears extremely ill She is tachypneic at 35 respirations per minute and tachycardic at 132 bpm She is extremely encephalopathic and shaky She appears clammy Chart reviewed Discussed with RN Prognosis extremely guarded at best 09/18/2019 Patient still in ICU Resting with no apparent distress Chart reviewed 09/17/2019 Patient seen and examined in the ICU She is wiping her face with a cough Discussed with RN Chart reviewed We hope to get her out of the ICU later today if possible 09/16/2019 Patient seen and examined in the ICU once again She is back on NG suction On IV Zosyn Has IV TPN Sedated with Precedex but anxious still Appears somewhat clammy and pale Chart reviewed Discussed with RN She remains critically ill BRIEF OPERATIVE NOTE Pre-Op Diagnosis Pancreatitis with pseudocysts, suspected infection Post-Op Diagnosis same Procedure Performed CT abdominal Drains x 3 Surgeon Tesfaye Anesthesia Type: Conscious Sedation Findings 3 abdominal drains, 14F, with turbid pancreatic fluid and necrotic debris in each. Complications No immediate 08/26: Patient today somewhat restless and having bilious secretions from ET tube, imaging studies ordered, discussed with pci security consultant. Pretty poor prognosis, hopefully is not a fistula, poor surgical candidate. 08/27: Imaging with no acute events, she seems more stable today compared to yesterday. Encouraged as much activity as possible patient at high risk for severe depression. Vitals Vitals Vital Signs Date Time Temp Pulse Resp B/P (MAP) Pulse Ox O2 Delivery O2 Flow Rate FiO2 10/15/19 08:58 100 Tracheal Collar 8.0 10/15/19 08:00 98.6 116 26 122/67 (85) 98.6 Physical Exam Physical Exam GENERAL: Patient alert awake comfortable HEENT: Anicteric, no thrush NECK: Tracheostomy LUNGS: Diminished aeration bases, no accessory muscle use - CT on left with clear fluid HEART: S1, S2,regular ABDOMEN: Mild distention, bowel sounds present, soft, grimaces to palpation, drains x 3 : Lind ( 09/24) EXTREMITIES: + edema BLE SKIN: no signs of gen rash LUE-PICC without signs of complications General: No acute distress Heart: Regular rate (SR/ST), Other (distant heart sounds) Lungs: Other (diminshed in bases, Rhonci in LLL) Abdomen: Soft, Other (drains in place) Extremities: No cyanosis, Other (3+ bilateral LE pitting edema) Skin: No rashes, No significant lesion Labs LABS Laboratory Tests Test 10/14/19 13:10 10/14/19 17:54 10/15/19 00:20 10/15/19 06:07 Glucose (Fingerstick) 134 mg/dL (70-99) 117 mg/dL (70-99) 143 mg/dL (70-99) 134 mg/dL (70-99) Assessment and Plan Assessmemt and Plan Problems Medical Problems: (1) Acute pancreatitis Status: Acute (2) Cholelithiasis Status: Acute Comment Review of Relevant I have reviewed the following items kolby (where applicable) has been applied. Labs Laboratory Tests Test 10/13/19 12:50 10/13/19 17:39 10/14/19 00:23 10/14/19 05:12 Glucose (Fingerstick) 150 mg/dL (70-99) 139 mg/dL (70-99) 138 mg/dL (70-99) 125 mg/dL (70-99) Test 10/14/19 05:15 10/14/19 13:10 10/14/19 17:54 10/15/19 00:20 White Blood Count 10.9 x10^3/uL (4.0-11.0) Red Blood Count 3.01 x10^6/uL (3.50-5.40) Hemoglobin 8.6 g/dL (12.0-15.5) Hematocrit 25.5 % (36.0-47.0) Mean Corpuscular Volume 85 fL (79-100) Mean Corpuscular Hemoglobin 29 pg (25-35) Mean Corpuscular Hemoglobin Concent 34 g/dL (31-37) Red Cell Distribution Width 18.1 % (11.5-14.5) Platelet Count 380 x10^3/uL (140-400) Neutrophils (%) (Auto) 78 % (31-73) Lymphocytes (%) (Auto) 12 % (24-48) Monocytes (%) (Auto) 7 % (0-9) Eosinophils (%) (Auto) 2 % (0-3) Basophils (%) (Auto) 0 % (0-3) Neutrophils # (Auto) 8.5 x10^3/uL (1.8-7.7) Lymphocytes # (Auto) 1.3 x10^3/uL (1.0-4.8) Monocytes # (Auto) 0.8 x10^3/uL (0.0-1.1) Eosinophils # (Auto) 0.2 x10^3/uL (0.0-0.7) Basophils # (Auto) 0.0 x10^3/uL (0.0-0.2) Sodium Level 137 mmol/L (136-145) Potassium Level 4.1 mmol/L (3.5-5.1) Chloride Level 101 mmol/L (98-107) Carbon Dioxide Level 36 mmol/L (21-32) Anion Gap 0 (6-14) Blood Urea Nitrogen 15 mg/dL (7-20) Creatinine 0.6 mg/dL (0.6-1.0) Estimated GFR (Cockcroft-Gault) 106.3 BUN/Creatinine Ratio 25 (6-20) Glucose Level 126 mg/dL (70-99) Calcium Level 10.4 mg/dL (8.5-10.1) Phosphorus Level 4.4 mg/dL (2.6-4.7) Magnesium Level 2.1 mg/dL (1.8-2.4) Total Bilirubin 0.5 mg/dL (0.2-1.0) Aspartate Amino Transf (AST/SGOT) 19 U/L (15-37) Alanine Aminotransferase (ALT/SGPT) 14 U/L (14-59) Alkaline Phosphatase 161 U/L (46-116) Total Protein 4.6 g/dL (6.4-8.2) Albumin 1.1 g/dL (3.4-5.0) Albumin/Globulin Ratio 0.3 (1.0-1.7) Glucose (Fingerstick) 134 mg/dL (70-99) 117 mg/dL (70-99) 143 mg/dL (70-99) Test 10/15/19 06:07 Glucose (Fingerstick) 134 mg/dL (70-99) Laboratory Tests Test 10/14/19 13:10 10/14/19 17:54 10/15/19 00:20 10/15/19 06:07 Glucose (Fingerstick) 134 mg/dL (70-99) 117 mg/dL (70-99) 143 mg/dL (70-99) 134 mg/dL (70-99) Microbiology 10/06/19 Blood Culture - Final, Complete NO GROWTH AFTER 5 DAYS 10/03/19 Gram Stain - Final, Complete 10/03/19 Aerobic and Anaerobic Culture - Final, Complete 10/01/19 Gram Stain Evaluation - Final, Complete 10/01/19 Respiratory Culture - Final, Complete 10/01/19 Antimicrobic Susceptibility - Final, Complete 09/25/19 Urine Culture - Final, Complete 09/17/19 Gram Stain - Final, Complete 09/17/19 Aerobic Culture - Final, Complete Medications Current Medications Sodium Chloride 1,000 ml @ 1,000 mls/hr Q1H IV Last administered on 07/04/19at 03:00; Start 07/04/19 at 03:00; Stop 07/04/19 at 03:59; Status DC Ondansetron HCl (Zofran) 4 mg 1X ONCE IVP Last administered on 07/04/19at 03:27; Start 07/04/19 at 03:00; Stop 07/04/19 at 03:01; Status DC Morphine Sulfate (Morphine Sulfate) 4 mg 1X ONCE IV ; Start 07/04/19 at 03:00; Stop 07/04/19 at 03:01; Status Cancel Ketorolac Tromethamine (Toradol 30mg Vial) 30 mg 1X ONCE IV Last administered on 07/04/19at 02:54; Start 07/04/19 at 03:00; Stop 07/04/19 at 03:01; Status DC Fentanyl Citrate (Fentanyl 2ml Vial) 25 mcg 1X ONCE IVP Last administered on 07/04/19at 03:23; Start 07/04/19 at 03:30; Stop 07/04/19 at 03:31; Status DC Fentanyl Citrate (Fentanyl 2ml Vial) 100 mcg STK-MED ONCE .ROUTE ; Start 06/18 10/07 at 03:18; Stop 07/04/19 at 03:18; Status DC Iohexol (Omnipaque 350 Mg/ml) 90 ml 1X ONCE IV Last administered on 07/04/19at 03:25; Start 07/04/19 at 03:30; Stop 07/04/19 at 03:31; Status DC Info (CONTRAST GIVEN -- Rx MONITORING) 1 each PRN DAILY PRN MC SEE COMMENTS; Start 07/04/19 at 03:30; Stop 07/06/19 at 03:29; Status DC Hydromorphone HCl (Dilaudid) 0.5 mg 1X ONCE IV Last administered on 07/04/19at 03:55; Start 07/04/19 at 04:30; Stop 07/04/19 at 04:32; Status DC Ondansetron HCl (Zofran) 4 mg PRN Q8HRS PRN IV NAUSEA/VOMITING 1ST CHOICE; Start 07/04/19 at 05:00; Stop 07/04/19 at 09:27; Status DC Morphine Sulfate (Morphine Sulfate) 2 mg PRN Q2HR PRN IV SEVERE PAIN 7-10 Last administered on 07/05/19at 12:26; Start 07/04/19 at 05:00; Stop 07/05/19 at 14:15; Status DC Sodium Chloride 1,000 ml @ 125 mls/hr Q8H IV Last administered on 07/04/19at 20:56; Start 07/04/19 at 05:00; Stop 07/05/19 at 04:59; Status DC Hydromorphone HCl (Dilaudid) 0.5 mg PRN Q3HRS PRN IV SEVERE PAIN 7-10 Last administered on 07/05/19at 10:06; Start 07/04/19 at 05:00; Stop 07/05/19 at 12:01; Status DC Piperacillin Sod/ Tazobactam Sod 4.5 gm/Sodium Chloride 100 ml @ 200 mls/hr 1X ONCE IV Last administered on 07/04/19at 05:44; Start 07/04/19 at 06:00; Stop 07/04/19 at 06:29; Status DC Ondansetron HCl (Zofran) 4 mg PRN Q4HRS PRN IV NAUSEA/VOMITING 1ST CHOICE Last administered on 10/15/19at 08:56; Start 07/04/19 at 09:30 Insulin Human Lispro (HumaLOG) 0-9 UNITS Q6HRS SQ Last administered on 10/12/19at 18:05; Start 07/04/19 at 09:30 Dextrose (Dextrose 50%-Water Syringe) 12.5 gm PRN Q15MIN PRN IV SEE COMMENTS; Start 07/04/19 at 09:30 Pantoprazole Sodium (PROTONIX VIAL for IV PUSH) 40 mg DAILYAC IVP Last administered on 10/15/19at 08:56; Start 07/04/19 at 11:30 Prochlorperazine Edisylate (Compazine) 10 mg PRN Q6HRS PRN IV NAUSEA/VOMITING, 2nd CHOICE Last administered on 10/12/19at 11:56; Start 07/04/19 at 17:45 Atenolol (Tenormin) 100 mg DAILY PO ; Start 07/05/19 at 09:00; Stop 07/04/19 at 20:08; Status DC Metoprolol Tartrate (Lopressor Vial) 2.5 mg Q6HRS IVP Last administered on 07/05/19at 05:51; Start 07/04/19 at 20:15; Stop 07/05/19 at 10:02; Status DC Metoprolol Tartrate (Lopressor Vial) 5 mg Q6HRS IVP Last administered on 07/14/19at 00:12; Start 07/05/19 at 10:15; Stop 07/16/19 at 08:48; Status DC Hydromorphone HCl (Dilaudid) 1 mg PRN Q3HRS PRN IV SEVERE PAIN 7-10 Last administered on 07/11/19at 05:13; Start 07/05/19 at 12:00; Stop 07/19/19 at 00:25; Status DC Lidocaine HCl (Buffered Lidocaine 1%) 3 ml STK-MED ONCE .ROUTE ; Start 07/05/19 at 12:55; Stop 07/05/19 at 12:56; Status DC Albumin Human 500 ml @ 125 mls/hr 1X ONCE IV Last administered on 07/05/19at 14:33; Start 07/05/19 at 14:30; Stop 07/05/19 at 18:32; Status DC Norepinephrine Bitartrate 8 mg/ Dextrose 258 ml @ 17.299 mls/ hr CONT PRN IV PER PROTOCOL Last administered on 08/02/19at 12:48; Start 07/05/19 at 15:30; Stop 08/05/19 at 09:19; Status DC Sodium Chloride 1,000 ml @ 125 mls/hr Q8H IV Last administered on 07/05/19at 21:04; Start 07/05/19 at 16:00; Stop 07/06/19 at 02:42; Status DC Albumin Human 500 ml @ 125 mls/hr PRN BID PRN IV After every 2L NSS & BP < 90mm Last administered on 09/24/19at 11:40; Start 07/05/19 at 16:00 Iohexol (Omnipaque 300 Mg/ml) 60 ml 1X ONCE IV Last administered on 07/05/19at 17:20; Start 07/05/19 at 17:00; Stop 07/05/19 at 17:01; Status DC Info (CONTRAST GIVEN -- Rx MONITORING) 1 each PRN DAILY PRN MC SEE COMMENTS; Start 07/05/19 at 17:00; Stop 07/07/19 at 16:59; Status DC Meropenem 1 gm/ Sodium Chloride 100 ml @ 200 mls/hr Q8HRS IV Last administered on 07/06/19at 05:45; Start 07/05/19 at 20:00; Stop 07/06/19 at 08:48; Status DC Furosemide (Lasix) 40 mg 1X ONCE IVP Last administered on 07/05/19at 22:12; Start 07/05/19 at 22:30; Stop 07/05/19 at 22:31; Status DC Calcium Chloride 1000 mg/Sodium Chloride 110 ml @ 220 mls/hr 1X ONCE IV Last administered on 07/05/19at 22:11; Start 07/05/19 at 22:30; Stop 07/05/19 at 22:59; Status DC Albuterol Sulfate (Ventolin Neb Soln) 2.5 mg 1X ONCE NEB Last administered on 07/06/19at 00:56; Start 07/05/19 at 22:30; Stop 07/05/19 at 22:31; Status DC Insulin Human Regular (HumuLIN R VIAL) 5 unit 1X ONCE IV Last administered on 07/05/19at 22:14; Start 07/05/19 at 22:30; Stop 07/05/19 at 22:31; Status DC Magnesium Sulfate 50 ml @ 25 mls/hr 1X ONCE IV Last administered on 07/06/19at 02:57; Start 07/06/19 at 03:00; Stop 07/06/19 at 04:59; Status DC Calcium Gluconate 1000 mg/Sodium Chloride 110 ml @ 220 mls/hr 1X ONCE IV Last administered on 07/06/19at 02:46; Start 07/06/19 at 03:00; Stop 07/06/19 at 03:29; Status DC Sodium Chloride 1,000 ml @ 200 mls/hr Q5H IV Last administered on 07/06/19at 02:46; Start 07/06/19 at 03:00; Stop 07/06/19 at 10:21; Status DC Calcium Gluconate 1000 mg/Sodium Chloride 110 ml @ 220 mls/hr 1X ONCE IV Last administered on 07/06/19at 03:21; Start 07/06/19 at 03:30; Stop 07/06/19 at 03:59; Status DC Sodium Bicarbonate 50 meq/Sodium Chloride 1,050 ml @ 75 mls/hr Q14H IV Last administered on 07/10/19at 21:10; Start 07/06/19 at 07:30; Stop 07/11/19 at 10:28; Status DC Calcium Gluconate 2000 mg/Sodium Chloride 120 ml @ 220 mls/hr 1X ONCE IV Last administered on 07/06/19at 09:05; Start 07/06/19 at 07:30; Stop 07/06/19 at 08:02; Status DC Lidocaine HCl (Xylocaine-Mpf 1% 2ml Vial) 2 ml STK-MED ONCE .ROUTE ; Start 07/06/19 at 08:47; Stop 07/06/19 at 08:47; Status DC Meropenem 500 mg/ Sodium Chloride 50 ml @ 100 mls/hr Q12HR IV Last admin istered on 07/11/19at 21:01; Start 07/06/19 at 18:00; Stop 07/12/19 at 07:58; Status DC Lidocaine HCl (Buffered Lidocaine 1%) 3 ml STK-MED ONCE .ROUTE ; Start 07/06/19 at 09:46; Stop 07/06/19 at 09:46; Status DC Lidocaine HCl (Buffered Lidocaine 1%) 6 ml 1X ONCE INJ Last administered on 07/06/19at 10:26; Start 07/06/19 at 10:15; Stop 07/06/19 at 10:16; Status DC Info (Tpn Per Pharmacy) 1 each PRN DAILY PRN MC SEE COMMENTS Last administered on 10/15/19at 09:38; Start 07/06/19 at 12:00 Sodium Chloride 1,000 ml @ 1,000 mls/hr Q1H PRN IV hypotension; Start 07/06/19 at 12:07; Stop 07/06/19 at 18:06; Status DC Diphenhydramine HCl (Benadryl) 25 mg 1X PRN PRN IV ITCHING; Start 07/06/19 at 12:15; Stop 07/07/19 at 12:14; Status DC Diphenhydramine HCl (Benadryl) 25 mg 1X PRN PRN IV ITCHING; Start 07/06/19 at 12:15; Stop 07/07/19 at 12:14; Status DC Sodium Chloride 1,000 ml @ 400 mls/hr Q2H30M PRN IV PATENCY; Start 07/06/19 at 12:07; Stop 07/07/19 at 00:06; Status DC Info (PHARMACY MONITORING -- do not chart) 1 each PRN DAILY PRN MC SEE COMMENTS; Start 07/06/19 at 12:15; Stop 07/08/19 at 08:13; Status DC Sodium Chloride 90 meq/Calcium Gluconate 10 meq/ Multivitamins 10 ml/Chromium/ Copper/Manganese/ Seleni/Zn 1 ml/ Total Parenteral Nutrition/Amino Acids/Dextr ose/ Fat Emulsion Intravenous 55.005 ml @ 2.292 mls/hr TPN CONT IV ; Start 07/06/19 at 22:00; Stop 07/06/19 at 12:33; Status DC Info (Tpn Per Pharmacy) 1 each PRN DAILY PRN MC SEE COMMENTS; Start 07/06/19 at 12:30; Status UNV Sodium Chloride 90 meq/Calcium Gluconate 10 meq/ Multivitamins 10 ml/Chromium/ Copper/Manganese/ Seleni/Zn 0.5 ml/ Total Parenteral Nutrition/Amino Acids /Dextrose/ Fat Emulsion Intravenous 1,512 ml @ 63 mls/hr TPN CONT IV Last administered on 07/06/19at 22:06; Start 07/06/19 at 22:00; Stop 07/07/19 at 21:59; Status DC Calcium Carbonate/ Glycine (Tums) 500 mg PRN AFTMEALHC PRN PO INDIGESTION; Start 07/06/19 at 17:45; Stop 08/31/19 at 10:25; Status DC Calcium Gluconate (Calcium Gluconate) 2,000 mg 1X ONCE IVP Last administered on 07/07/19at 02:19; Start 07/07/19 at 02:15; Stop 07/07/19 at 02:16; Status DC Calcium Chloride 3000 mg/Sodium Chloride 1,030 ml @ 50 mls/hr [id number] IV Last administered on 07/09/19at 02:17; Start 07/07/19 at 08:00; Stop 07/09/19 at 15:23; Status DC Lorazepam (Ativan Inj) 1 mg PRN Q4HRS PRN IVP ANXIETY / AGITATION, 2nd choic Last administered on 08/05/19at 03:51; Start 07/07/19 at 09:00; Stop 08/05/19 at 09:19; Status DC Sodium Chloride 1,000 ml @ 1,000 mls/hr Q1H PRN IV hypotension; Start 07/07/19 at 08:56; Stop 07/07/19 at 14:55; Status DC Albumin Human 200 ml @ 200 mls/hr 1X PRN PRN IV Hypotension; Start 07/07/19 at 09:00; Stop 07/07/19 at 14:59; Status DC Diphenhydramine HCl (Benadryl) 25 mg 1X PRN PRN IV ITCHING; Start 07/07/19 at 09:00; Stop 07/08/19 at 08:59; Status DC Diphenhydramine HCl (Benadryl) 25 mg 1X PRN PRN IV ITCHING; Start 07/07/19 at 09:00; Stop 07/08/19 at 08:59; Status DC Sodium Chloride 1,000 ml @ 400 mls/hr Q2H30M PRN IV PATENCY; Start 07/07/19 at 08:56; Stop 07/07/19 at 20:55; Status DC Info (PHARMACY MONITORING -- do not chart) 1 each PRN DAILY PRN MC SEE COMMENTS; Start 07/07/19 at 09:00; Status UNV Info (PHARMACY MONITORING -- do not chart) 1 each PRN DAILY PRN MC SEE COMMENTS; Start 07/07/19 at 09:00; Stop 07/08/19 at 08:13; Status DC Digoxin (Lanoxin) 500 mcg 1X ONCE IV Last administered on 07/07/19at 10:04; Start 07/07/19 at 10:00; Stop 07/07/19 at 10:01; Status DC Digoxin (Lanoxin) 125 mcg 1X ONCE IV Last administered on 07/07/19at 17:10; Start 07/07/19 at 18:00; Stop 07/07/19 at 18:01; Status DC Magnesium Sulfate 100 ml @ 25 mls/hr 1X ONCE IV Last administered on 07/07/19at 12:48; Start 07/07/19 at 13:00; Stop 07/07/19 at 16:59; Status DC Sodium Chloride 90 meq/Magnesium Sulfate 10 meq/ Calcium Gluconate 20 meq/ Multivitamins 10 ml/Chromium/ Copper/Manganese/ Seleni/Zn 0.5 ml/ Total Parenteral Nutrition/Amino Acids/Dextrose/ Fat Emulsion Intravenous 1,512 ml @ 63 mls/hr TPN CONT IV Last administered on 07/07/19at 22:25; Start 07/07/19 at 22:00; Stop 07/08/19 at 21:59; Status DC Sodium Chloride 1,000 ml @ 1,000 mls/hr Q1H PRN IV hypotension; Start 07/08/19 at 08:05; Stop 07/08/19 at 14:04; Status DC Albumin Human 200 ml @ 200 mls/hr 1X ONCE IV Last administered on 07/08/19at 08:57; Start 07/08/19 at 08:15; Stop 07/08/19 at 09:14; Status DC Diphenhydramine HCl (Benadryl) 25 mg 1X PRN PRN IV ITCHING; Start 07/08/19 at 08:15; Stop 07/09/19 at 08:14; Status DC Diphenhydramine HCl (Benadryl) 25 mg 1X PRN PRN IV ITCHING; Start 07/08/19 at 08:15; Stop 07/09/19 at 08:14; Status DC Sodium Chloride 1,000 ml @ 400 mls/hr Q2H30M PRN IV PATENCY; Start 07/08/19 at 08:05; Stop 07/08/19 at 20:04; Status DC Info (PHARMACY MONITORING -- do not chart) 1 each PRN DAILY PRN MC SEE COMMENTS; Start 07/08/19 at 08:15; Stop 07/12/19 at 07:57; Status DC Sodium Chloride 90 meq/Potassium Chloride 15 meq/ Potassium Phosphate 10 mmol/ Magnesium Sulfate 10 meq/Calcium Gluconate 20 meq/ Multivitamins 10 ml/Chromium/ Copper/Manganese/ Seleni/Zn 0.5 ml/ Total Parenteral Nutrition/Amino Acids/Dextrose/ Fat Emulsion Intravenous 1,512 ml @ 63 mls/hr TPN CONT IV Last administered on 07/08/19at 21:01; Start 07/08/19 at 22:00; Stop 07/09/19 at 21:59; Status DC Potassium Chloride/Water 100 ml @ 100 mls/hr 1X ONCE IV Last administered on 07/08/19at 14:09; Start 07/08/19 at 14:00; Stop 07/08/19 at 14:59; Status DC Benzocaine (Hurricaine One) 1 spray 1X ONCE MM Last administered on 07/08/19at 16:38; Start 07/08/19 at 14:30; Stop 07/08/19 at 14:31; Status DC Lidocaine HCl (Glydo (Lidocaine) Jelly) 1 ramu 1X ONCE MM Last administered on 07/08/19at 16:38; Start 07/08/19 at 14:30; Stop 07/08/19 at 14:31; Status DC Linezolid/Dextrose 300 ml @ 300 mls/hr Q12HR IV Last administered on 07/14/19at 21:04; Start 07/08/19 at 20:00; Stop 07/15/19 at 07:50; Status DC Acetaminophen (Tylenol) 650 mg PRN Q6HRS PRN PO MILD PAIN / TEMP; Start 07/09/19 at 03:30; Stop 07/09/19 at 03:36; Status DC Acetaminophen (Tylenol) 650 mg PRN Q6HRS PRN PEG MILD PAIN / TEMP Last administered on 08/04/19at 19:56; Start 07/09/19 at 03:36; Stop 08/31/19 at 10:25; Status DC Sodium Chloride 1,000 ml @ 1,000 mls/hr Q1H PRN IV hypotension; Start 07/09/19 at 07:50; Stop 07/09/19 at 13:49; Status DC Albumin Human 200 ml @ 200 mls/hr 1X PRN PRN IV Hypotension; Start 07/09/19 at 08:00; Stop 07/09/19 at 13:59; Status DC Sodium Chloride (Normal Saline Flush) 10 ml 1X PRN PRN IV AP catheter pack; Start 07/09/19 at 08:00; Stop 07/10/19 at 07:59; Status DC Sodium Chloride (Normal Saline Flush) 10 ml 1X PRN PRN IV FOLDED TOWEL MACHINE OPERATOR catheter pack; Start 07/09/19 at 08:00; Stop 07/10/19 at 07:59; Status DC Sodium Chloride 1,000 ml @ 400 mls/hr Q2H30M PRN IV PATENCY; Start 07/09/19 at 07:50; Stop 07/09/19 at 19:49; Status DC Info (PHARMACY MONITORING -- do not chart) 1 each PRN DAILY PRN MC SEE COMMENTS; Start 07/09/19 at 08:00; Status UNV Info (PHARMACY MONITORING -- do not chart) 1 each PRN DAILY PRN MC SEE COMMENTS; Start 07/09/19 at 08:00; Stop 07/11/19 at 08:25; Status DC Sodium Chloride 90 meq/Potassium Chloride 15 meq/ Potassium Phosphate 10 mmol/ Magnesium Sulfate 10 meq/Calcium Gluconate 20 meq/ Multivitamins 10 ml/Chromium/ Copper/Manganese/ Seleni/Zn 0.5 ml/ Total Parenteral Nutrition/Amino Acids/Dextrose/ Fat Emulsion Intravenous 1,512 ml @ 63 mls/hr TPN CONT IV Last administered on 07/09/19at 20:57; Start 07/09/19 at 22:00; Stop 07/10/19 at 21:59; Status DC Sodium Chloride 90 meq/Potassium Chloride 15 meq/ Potassium Phosphate 15 mmol/ Magnesium Sulfate 10 meq/Calcium Gluconate 20 meq/ Multivitamins 10 ml/Chromium/ Copper/Manganese/ Seleni/Zn 0.5 ml/ Total Parenteral Nutrition/Amino Acids/Dextrose/ Fat Emulsion Intravenous 1,512 ml @ 63 mls/hr TPN CONT IV ; Start 07/10/19 at 22:00; Stop 07/10/19 at 14:16; Status DC Sodium Chloride 90 meq/Potassium Chloride 15 meq/ Potassium Phosphate 15 mmol/ Magnesium Sulfate 10 meq/Calcium Gluconate 20 meq/ Multivitamins 10 ml/Chromium/ Copper/Manganese/ Seleni/Zn 0.5 ml/ Total Parenteral Nutrition/Amino Acids/Dextrose/ Fat Emulsion Intravenous 1,200 ml @ 50 mls/hr TPN CONT IV ; Start 07/10/19 at 22:00; Stop 07/10/19 at 14:17; Status DC Sodium Chloride 90 meq/Potassium Chloride 15 meq/ Potassium Phosphate 10 mmol/ Magnesium Sulfate 10 meq/Calcium Gluconate 20 meq/ Multivitamins 10 ml/Chromium/ Copper/Manganese/ Seleni/Zn 0.5 ml/ Total Parenteral Nutrition/Amino Acids/Dextrose/ Fat Emulsion Intravenous 1,200 ml @ 50 mls/hr TPN CONT IV Last administered on 07/10/19at 23:29; Start 07/10/19 at 22:00; Stop 07/11/19 at 21:59; Status DC Sodium Chloride 1,000 ml @ 1,000 mls/hr Q1H PRN IV hypotension; Start 07/11/19 at 07:28; Stop 07/11/19 at 13:27; Status DC Albumin Human 200 ml @ 200 mls/hr 1X ONCE IV Last administered on 07/11/19at 08:51; Start 07/11/19 at 07:30; Stop 07/11/19 at 08:29; Status DC Diphenhydramine HCl (Benadryl) 25 mg 1X PRN PRN IV ITCHING; Start 07/11/19 at 07:30; Stop 07/12/19 at 07:29; Status DC Diphenhydramine HCl (Benadryl) 25 mg 1X PRN PRN IV ITCHING; Start 07/11/19 at 07:30; Stop 07/12/19 at 07:29; Status DC Sodium Chloride 1,000 ml @ 400 mls/hr Q2H30M PRN IV PATENCY; Start 07/11/19 at 07:28; Stop 07/11/19 at 19:27; Status DC Info (PHARMACY MONITORING -- do not chart) 1 each PRN DAILY PRN MC SEE COMMENTS; Start 07/11/19 at 07:30; Stop 07/22/19 at 13:01; Status DC Metronidazole 100 ml @ 100 mls/hr Q6HRS IV Last administered on 07/27/19at 06:26; Start 07/11/19 at 08:30; Stop 07/27/19 at 09:58; Status DC Micafungin Sodium 100 mg/Dextrose 100 ml @ 100 mls/hr Q24H IV Last administered on 08/18/19at 08:18; Start 07/11/19 at 09:00; Stop 08/18/19 at 20:58; Status DC Propofol 0 ml @ As Directed STK-MED ONCE IV ; Start 07/11/19 at 07:53; Stop 07/11/19 at 07:53; Status DC Etomidate (Amidate) 20 mg STK-MED ONCE IV ; Start 07/11/19 at 07:53; Stop 07/11/19 at 07:54; Status DC Midazolam HCl (Versed) 5 mg STK-MED ONCE .ROUTE ; Start 07/11/19 at 07:57; Stop 07/11/19 at 07:57; Status DC Fentanyl Citrate 30 ml @ 0 mls/hr CONT PRN IV SEE PROTOCOL Last administered on 08/05/19at 06:12; Start 07/11/19 at 08:15; Stop 08/05/19 at 09:19; Status DC Artificial Tears (Artificial Tears) 1 drop PRN Q1HR PRN OU DRY EYE, 1st choice; Start 07/11/19 at 08:15; Stop 08/17/19 at 05:31; Status DC Midazolam HCl 50 mg/Sodium Chloride 50 ml @ 0 mls/hr CONT PRN IV SEE PROTOCOL Last administered on 07/14/19at 22:39; Start 07/11/19 at 08:15; Stop 07/16/19 at 15:59; Status DC Etomidate (Amidate) 8 mg 1X ONCE IV Last administered on 07/11/19at 08:33; Start 07/11/19 at 08:30; Stop 07/11/19 at 08:31; Status DC Succinylcholine Chloride (Anectine) 120 mg 1X ONCE IV Last administered on 07/11/19at 08:34; Start 07/11/19 at 08:30; Stop 07/11/19 at 08:31; Status DC Midazolam HCl (Versed) 5 mg 1X ONCE IV ; Start 07/11/19 at 08:30; Stop 07/11/19 at 08:31; Status DC Potassium Chloride 15 meq/ Bicarbonate Dialysis Soln w/ out KCl 5,007.5 ml @ 1,000 mls/ hr Q5H1M IV Last administered on 07/12/19at 11:11; Start 07/11/19 at 12:00; Stop 07/12/19 at 11:15; Status DC Potassium Chloride 15 meq/ Bicarbonate Dialysis Soln w/ out KCl 5,007.5 ml @ 1,000 mls/ hr Q5H1M IV Last administered on 07/12/19at 11:12; Start 07/11/19 at 12:00; Stop 07/12/19 at 11:17; Status DC Potassium Chloride 15 meq/ Bicarbonate Dialysis Soln w/ out KCl 5,007.5 ml @ 1,000 mls/ hr Q5H1M IV Last administered on 07/12/19at 11:11; Start 07/11/19 at 12:00; Stop 07/12/19 at 11:19; Status DC Sodium Chloride 90 meq/Potassium Chloride 15 meq/ Potassium Phosphate 10 mmol/ Magnesium Sulfate 10 meq/Calcium Gluconate 20 meq/ Multivitamins 10 ml/Chromium/ Copper/Manganese/ Seleni/Zn 0.5 ml/ Total Parenteral Nutrition/Amino Acids/Dextrose/ Fat Emulsion Intravenous 1,400 ml @ 58.333 mls/ hr TPN CONT IV Last administered on 07/11/19at 21:42; Start 07/11/19 at 22:00; Stop 07/12/19 at 21:59; Status DC Heparin Sodium (Porcine) (Heparin Sodium) 5,000 unit Q8HRS SQ Last administered on 07/16/19at 05:55; Start 07/11/19 at 15:00; Stop 07/16/19 at 13:28; Status DC Meropenem 500 mg/ Sodium Chloride 50 ml @ 100 mls/hr Q6HRS IV Last ad ministered on 07/13/19at 06:00; Start 07/12/19 at 09:00; Stop 07/13/19 at 07:29; Status DC Potassium Phosphate 20 mmol/ Sodium Chloride 106.6667 ml @ 51.667 m... 1X ONCE IV Last administered on 07/12/19at 11:22; Start 07/12/19 at 10:15; Stop 07/12/19 at 12:18; Status DC Acetaminophen (Tylenol Supp) 650 mg PRN Q6HRS PRN MD MILD PAIN / TEMP > 100.3'F Last administered on 10/06/19at 10:16; Start 07/12/19 at 10:30 Potassium Chloride/Water 100 ml @ 100 mls/hr Q1H IV Last administered on 07/12/19at 12:12; Start 07/12/19 at 11:00; Stop 07/12/19 at 12:59; Status DC Potassium Chloride 20 meq/ Bicarbonate Dialysis Soln w/ out KCl 5,010 ml @ 1,000 mls/hr Q5H1M IV Last administered on 07/13/19at 08:48; Start 07/12/19 at 12:00; Stop 07/13/19 at 13:03; Status DC Potassium Chloride 20 meq/ Bicarbonate Dialysis Soln w/ out KCl 5,010 ml @ 1,000 mls/hr Q5H1M IV Last administered on 07/17/19at 14:52; Start 07/12/19 at 11:30; Stop 07/17/19 at 19:59; Status DC Potassium Chloride 20 meq/ Bicarbonate Dialysis Soln w/ out KCl 5,010 ml @ 1,000 mls/hr Q5H1M IV Last administered on 07/17/19at 14:53; Start 07/12/19 at 11:30; Stop 07/17/19 at 19:59; Status DC Sodium Chloride 90 meq/Potassium Chloride 15 meq/ Potassium Phosphate 15 mmol/ Magnesium Sulfate 10 meq/Calcium Gluconate 15 meq/ Multivitamins 10 ml/Chromium/ Copper/Manganese/ Seleni/Zn 0.5 ml/ Total Parenteral Nutrition/Amino Acids/Dextrose/ Fat Emulsion Intravenous 1,400 ml @ 58.333 mls/ hr TPN CONT IV Last administered on 07/12/19at 22:17; Start 07/12/19 at 22:00; Stop 07/13/19 at 21:59; Status DC Cefepime HCl (Maxipime) 2 gm Q12HR IVP Last administered on 07/26/19at 20:56; Start 07/13/19 at 09:00; Stop 07/27/19 at 09:58; Status DC Daptomycin 500 mg/ Sodium Chloride 50 ml @ 100 mls/hr Q48H IV Last administered on 07/29/19at 09:57; Start 07/13/19 at 08:30; Stop 07/29/19 at 10:07; Status DC Lidocaine HCl (Buffered Lidocaine 1%) 3 ml 1X ONCE INJ Last administered on 07/13/19at 10:27; Start 07/13/19 at 10:30; Stop 07/13/19 at 10:31; Status DC Potassium Phosphate 20 mmol/ Sodium Chloride 106.6667 ml @ 51.667 m... 1X ONCE IV Last administered on 07/13/19at 12:51; Start 07/13/19 at 13:00; Stop 07/13/19 at 15:03; Status DC Sodium Chloride 90 meq/Potassium Chloride 15 meq/ Potassium Phosphate 18 mmol/ Magnesium Sulfate 8 meq/Calcium Gluconate 15 meq/ Multivitamins 10 ml/Chromium/ Copper/Manganese/ Seleni/Zn 0.5 ml/ Total Parenteral Nutrition/Amino Acids/Dextrose/ Fat Emulsion Intravenous 1,400 ml @ 58.333 mls/ hr TPN CONT IV Last administered on 07/13/19at 22:16; Start 07/13/19 at 22:00; Stop 07/14/19 at 21:59; Status DC Potassium Chloride 20 meq/ Bicarbonate Dialysis Soln w/ out KCl 5,010 ml @ 1,000 mls/hr Q5H1M IV Last administered on 07/17/19at 14:54; Start 07/13/19 at 16:00; Stop 07/17/19 at 19:59; Status DC Multi-Ingred Cream/Lotion/Oil/ Oint (Artificial Tears Eye Ointment) 1 ramu PRN Q1HR PRN OU DRY EYE, 2nd choice Last administered on 08/01/19at 08:19; Start 07/13/19 at 17:30; Stop 09/21/19 at 14:39; Status DC Sodium Chloride 90 meq/Potassium Chloride 15 meq/ Potassium Phosphate 18 mmol/ Magnesium Sulfate 8 meq/Calcium Gluconate 15 meq/ Multivitamins 10 ml/Chromium/ Copper/Manganese/ Seleni/Zn 0.5 ml/ Total Parenteral Nutrition/Amino Acids/Dextrose/ Fat Emulsion Intravenous 1,400 ml @ 58.333 mls/ hr TPN CONT IV Last administered on 07/14/19at 22:00; Start 07/14/19 at 22:00; Stop 07/15/19 at 21:59; Status DC Albumin Human 500 ml @ 125 mls/hr 1X ONCE IV ; Start 07/14/19 at 14:15; Stop 07/14/19 at 18:14; Status DC Sodium Chloride 90 meq/Potassium Chloride 15 meq/ Potassium Phosphate 18 mmol/ Magnesium Sulfate 8 meq/Calcium Gluconate 15 meq/ Multivitamins 10 ml/Chromium/ Copper/Manganese/ Seleni/Zn 0.5 ml/ Insulin Human Regular 10 unit/ Total Parenteral Nutrition/Amino Acids/Dextrose/ Fat Emulsion Intravenous 1,400 ml @ 58.333 mls/ hr TPN CONT IV Last administered on 07/15/19at 21:43; Start 07/15/19 at 22:00; Stop 07/16/19 at 21:59; Status DC Lidocaine HCl (Buffered Lidocaine 1%) 3 ml STK-MED ONCE .ROUTE ; Start 07/13/19 at 10:00; Stop 07/15/19 at 13:57; Status DC Midazolam HCl 100 mg/Sodium Chloride 100 ml @ 7 mls/hr CONT PRN IV SEE PROTOCOL Last administered on 07/27/19at 15:35; Start 07/16/19 at 16:00; Stop 09/21/19 at 14:38; Status DC Sodium Chloride 90 meq/Potassium Chloride 15 meq/ Potassium Phosphate 18 mmol/ Magnesium Sulfate 8 meq/Calcium Gluconate 15 meq/ Multivitamins 10 ml/Chromium/ Copper/Manganese/ Seleni/Zn 0.5 ml/ Insulin Human Regular 15 unit/ Total Parenteral Nutrition/Amino Acids/Dextrose/ Fat Emulsion Intravenous 1,400 ml @ 58.333 mls/ hr TPN CONT IV Last administered on 07/16/19at 20:34; Start 07/16/19 at 22:00; Stop 07/17/19 at 21:59; Status DC Info (Icu Electrolyte Protocol) 1 ea CONT PRN PRN MC PER PROTOCOL; Start 07/17/19 at 13:15 Sodium Chloride 90 meq/Potassium Chloride 15 meq/ Potassium Phosphate 18 mmol/ Magnesium Sulfate 8 meq/Calcium Gluconate 15 meq/ Multivitamins 10 ml/Chromium/ Copper/Manganese/ Seleni/Zn 0.5 ml/ Insulin Human Regular 15 unit/ Total Parenteral Nutrition/Amino Acids/Dextrose/ Fat Emulsion Intravenous 1,400 ml @ 58.333 mls/ hr TPN CONT IV Last administered on 07/17/19at 22:05; Start 07/17/19 at 22:00; Stop 07/18/19 at 21:59; Status DC Potassium Chloride 15 meq/ Bicarbonate Dialysis Soln w/ out KCl 5,007.5 ml @ 1,000 mls/ hr Q5H1M IV Last administered on 07/20/19at 18:14; Start 07/17/19 at 20:00; Stop 07/21/19 at 13:08; Status DC Potassium Chloride 15 meq/ Bicarbonate Dialysis Soln w/ out KCl 5,007.5 ml @ 1,000 mls/ hr Q5H1M IV Last administered on 07/20/19at 18:14; Start 07/17/19 at 20:00; Stop 07/21/19 at 13:08; Status DC Potassium Chloride 15 meq/ Bicarbonate Dialysis Soln w/ out KCl 5,007.5 ml @ 1,000 mls/ hr Q5H1M IV Last administered on 07/20/19at 18:14; Start 07/17/19 at 20:00; Stop 07/21/19 at 13:08; Status DC Iohexol (Omnipaque 240 Mg/ml) 30 ml 1X ONCE PO Last administered on 07/18/19at 11:30; Start 07/18/19 at 11:30; Stop 07/18/19 at 11:33; Status DC Info (CONTRAST GIVEN -- Rx MONITORING) 1 each PRN DAILY PRN MC SEE COMMENTS; Start 07/18/19 at 11:45; Stop 07/20/19 at 11:44; Status DC Sodium Chloride 90 meq/Potassium Chloride 15 meq/ Potassium Phosphate 18 mmol/ Magnesium Sulfate 8 meq/Calcium Gluconate 15 meq/ Multivitamins 10 ml/Chromium/ Copper/Manganese/ Seleni/Zn 0.5 ml/ Insulin Human Regular 15 unit/ Total Parenteral Nutrition/Amino Acids/Dextrose/ Fat Emulsion Intravenous 1,400 ml @ 58.333 mls/ hr TPN CONT IV Last administered on 07/18/19at 21:47; Start 07/18/19 at 22:00; Stop 07/19/19 at 21:59; Status DC Sodium Chloride 90 meq/Potassium Chloride 15 meq/ Potassium Phosphate 18 mmol/ Magnesium Sulfate 8 meq/Calcium Gluconate 15 meq/ Multivitamins 10 ml/Chromium/ Copper/Manganese/ Seleni/Zn 0.5 ml/ Insulin Human Regular 20 unit/ Total Parenteral Nutrition/Amino Acids/Dextrose/ Fat Emulsion Intravenous 1,400 ml @ 58.333 mls/ hr TPN CONT IV Last administered on 07/19/19at 21:36; Start 07/19/19 at 22:00; Stop 07/20/19 at 21:59; Status DC Alteplase, Recombinant (Cathflo For Central Catheter Clearance) 1 mg 1X ONCE INT CAT Last administered on 07/19/19at 20:03; Start 07/19/19 at 19:30; Stop 07/19/19 at 19:46; Status DC Alteplase, Recombinant (Cathflo For Central Catheter Clearance) 1 mg 1X ONCE INT CAT Last administered on 07/19/19at 22:05; Start 07/19/19 at 22:00; Stop 07/19/19 at 22:01; Status DC Sodium Chloride 90 meq/Potassium Chloride 15 meq/ Potassium Phosphate 18 mmol/ Magnesium Sulfate 8 meq/Calcium Gluconate 15 meq/ Multivitamins 10 ml/Chromium/ Copper/Manganese/ Seleni/Zn 0.5 ml/ Insulin Human Regular 20 unit/ Total Parenteral Nutrition/Amino Acids/Dextrose/ Fat Emulsion Intravenous 1,400 ml @ 58.333 mls/ hr TPN CONT IV Last administered on 07/20/19at 21:30; Start 07/20/19 at 22:00; Stop 07/21/19 at 21:59; Status DC Dexmedetomidine HCl 400 mcg/ Sodium Chloride 100 ml @ 0 mls/hr CONT PRN IV ANXIETY / AGITATION Last administered on 09/17/19at 12:57; Start 07/21/19 at 08:15; Stop 09/17/19 at 18:31; Status DC Sodium Chloride 500 ml @ 500 mls/hr 1X PRN PRN IV ELEVATED BP, SEE COMMENTS; Start 07/21/19 at 08:15 Atropine Sulfate (ATROPINE 0.5mg SYRINGE) 0.5 mg PRN Q5MIN PRN IV SEE COMMENTS; Start 07/21/19 at 08:15 Furosemide (Lasix) 20 mg 1X ONCE IVP Last administered on 07/21/19at 08:19; Start 07/21/19 at 08:15; Stop 07/21/19 at 08:16; Status DC Lidocaine HCl (Buffered Lidocaine 1%) 3 ml STK-MED ONCE .ROUTE ; Start 07/21/19 at 08:39; Stop 07/21/19 at 08:39; Status DC Lidocaine HCl (Buffered Lidocaine 1%) 6 ml 1X ONCE INJ Last administered on 07/21/19at 09:05; Start 07/21/19 at 09:00; Stop 07/21/19 at 09:06; Status DC Sodium Chloride 90 meq/Potassium Chloride 15 meq/ Potassium Phosphate 18 mmol/ Magnesium Sulfate 8 meq/Calcium Gluconate 15 meq/ Multivitamins 10 ml/Chromium/ Copper/Manganese/ Seleni/Zn 0.5 ml/ Insulin Human Regular 20 unit/ Total Parenteral Nutrition/Amino Acids/Dextrose/ Fat Emulsion Intravenous 1,400 ml @ 58.333 mls/ hr TPN CONT IV Last administered on 07/21/19at 22:45; Start 07/21/19 at 22:00; Stop 07/22/19 at 21:59; Status DC Sodium Chloride 1,000 ml @ 1,000 mls/hr Q1H PRN IV hypotension; Start 07/22/19 at 07:30; Stop 07/22/19 at 13:29; Status DC Albumin Human 200 ml @ 200 mls/hr 1X PRN PRN IV Hypotension Last administered on 07/22/19at 09:36; Start 07/22/19 at 07:30; Stop 07/22/19 at 13:29; Status DC Sodium Chloride (Normal Saline Flush) 10 ml 1X PRN PRN IV AP catheter pack; Start 07/22/19 at 07:30; Stop 07/22/19 at 21:29; Status DC Sodium Chloride (Normal Saline Flush) 10 ml 1X PRN PRN IV FOLDED TOWEL MACHINE OPERATOR catheter pack; Start 07/22/19 at 07:30; Stop 07/23/19 at 07:29; Status DC Sodium Chloride 1,000 ml @ 400 mls/hr Q2H30M PRN IV PATENCY; Start 07/22/19 at 07:30; Stop 07/22/19 at 19:29; Status DC Info (PHARMACY MONITORING -- do not chart) 1 each PRN DAILY PRN MC SEE COMMENTS; Start 07/22/19 at 07:30; Stop 07/22/19 at 13:02; Status DC Info (PHARMACY MONITORING -- do not chart) 1 each PRN DAILY PRN MC SEE COMMENTS; Start 07/22/19 at 07:30; Stop 07/24/19 at 12:45; Status DC Sodium Chloride 90 meq/Potassium Chloride 15 meq/ Potassium Phosphate 10 mmol/ Magnesium Sulfate 8 meq/Calcium Gluconate 15 meq/ Multivitamins 10 ml/Chromium/ Copper/Manganese/ Seleni/Zn 0.5 ml/ Insulin Human Regular 25 unit/ Total Janett ral Nutrition/Amino Acids/Dextrose/ Fat Emulsion Intravenous 1,400 ml @ 58.333 mls/ hr TPN CONT IV Last administered on 07/22/19at 22:19; Start 07/22/19 at 22:00; Stop 07/23/19 at 21:59; Status DC Heparin Sodium (Porcine) (Heparin Sodium) 5,000 unit Q12HR SQ Last administered on 08/14/19at 08:59; Start 07/22/19 at 21:00; Stop 08/14/19 at 10:05; Status DC Ondansetron HCl (Zofran) 4 mg PRN Q6HRS PRN IV NAUSEA/VOMITING; Start 07/25/19 at 07:00; Stop 07/26/19 at 06:59; Status DC Fentanyl Citrate (Fentanyl 2ml Vial) 25 mcg PRN Q5MIN PRN IV MILD PAIN 1-3; Start 07/25/19 at 07:00; Stop 07/26/19 at 06:59; Status DC Fentanyl Citrate (Fentanyl 2ml Vial) 50 mcg PRN Q5MIN PRN IV MODERATE TO SEVERE PAIN; Start 07/25/19 at 07:00; Stop 07/26/19 at 06:59; Status DC Ringer's Solution 1,000 ml @ 30 mls/hr Q24H IV ; Start 07/25/19 at 07:00; Stop 07/25/19 at 18:59; Status DC Lidocaine HCl (Xylocaine-Mpf 1% 2ml Vial) 2 ml PRN 1X PRN ID PRIOR TO IV START; Start 07/25/19 at 07:00; Stop 07/26/19 at 06:59; Status DC Prochlorperazine Edisylate (Compazine) 5 mg PACU PRN PRN IV NAUSEA, MRX1; Start 07/25/19 at 07:00; Stop 07/26/19 at 06:59; Status DC Sodium Chloride 1,000 ml @ 1,000 mls/hr Q1H PRN IV hypotension; Start 07/23/19 at 09:10; Stop 07/23/19 at 15:09; Status DC Albumin Human 200 ml @ 200 mls/hr 1X PRN PRN IV Hypotension Last administered on 07/23/19at 10:10; Start 07/23/19 at 09:15; Stop 07/23/19 at 15:14; Status DC Sodium Chloride 1,000 ml @ 400 mls/hr Q2H30M PRN IV PATENCY; Start 07/23/19 at 09:10; Stop 07/23/19 at 21:09; Status DC Info (PHARMACY MONITORING -- do not chart) 1 each PRN DAILY PRN MC SEE COMMENTS; Start 07/23/19 at 09:15; Stop 07/24/19 at 12:45; Status DC Info (PHARMACY MONITORING -- do not chart) 1 each PRN DAILY PRN MC SEE COMMENTS; Start 07/23/19 at 09:15; Stop 07/24/19 at 12:45; Status DC Sodium Chloride 90 meq/Potassium Chloride 15 meq/ Potassium Phosphate 10 mmol/ Magnesium Sulfate 8 meq/Calcium Gluconate 15 meq/ Multivitamins 10 ml/Chromium/ Copper/Manganese/ Seleni/Zn 0.5 ml/ Insulin Human Regular 25 unit/ Total Parenteral Nutrition/Amino Acids/Dextrose/ Fat Emulsion Intravenous 1,400 ml @ 58.333 mls/ hr TPN CONT IV Last administered on 07/23/19at 22:10; Start 07/23/19 at 22:00; Stop 07/24/19 at 21:59; Status DC Magnesium Sulfate 50 ml @ 25 mls/hr PRN DAILY PRN IV for Mag < 1.7 on am labs Last administered on 10/06/19at 10:57; Start 07/24/19 at 09:15 Sodium Chloride 90 meq/Potassium Chloride 15 meq/ Potassium Phosphate 10 mmol/ Magnesium Sulfate 8 meq/Calcium Gluconate 15 meq/ Multivitamins 10 ml/Chromium/ Copper/Manganese/ Seleni/Zn 0.5 ml/ Insulin Human Regular 25 unit/ Total Parenteral Nutrition/Amino Acids/Dextrose/ Fat Emulsion Intravenous 1,400 ml @ 58.333 mls/ hr TPN CONT IV Last administered on 07/24/19at 21:20; Start 07/24/19 at 22:00; Stop 07/25/19 at 21:59; Status DC Sodium Chloride 1,000 ml @ 1,000 mls/hr Q1H PRN IV hypotension; Start 07/24/19 at 12:23; Stop 07/24/19 at 18:22; Status DC Albumin Human 200 ml @ 200 mls/hr 1X ONCE IV Last administered on 07/24/19at 13:34; Start 07/24/19 at 12:30; Stop 07/24/19 at 13:29; Status DC Diphenhydramine HCl (Benadryl) 25 mg 1X PRN PRN IV ITCHING; Start 07/24/19 at 12:30; Stop 07/25/19 at 12:29; Status DC Diphenhydramine HCl (Benadryl) 25 mg 1X PRN PRN IV ITCHING; Start 07/24/19 at 12:30; Stop 07/25/19 at 12:29; Status DC Info (PHARMACY MONITORING -- do not chart) 1 each PRN DAILY PRN MC SEE COMMENTS; Start 07/24/19 at 12:30; Status Cancel Bupivacaine HCl/ Epinephrine Bitart (Sensorcain-Epi 0.5%-1:[id number] Mpf) 30 ml STK-MED ONCE .ROUTE Last administered on 07/25/19at 11:44; Start 07/25/19 at 11:00; Stop 07/25/19 at 11:01; Status DC Cellulose (Surgicel Fibrillar 1x2) 1 each STK-MED ONCE .ROUTE ; Start 07/25/19 at 11:00; Stop 07/25/19 at 11:01; Status DC Sodium Chloride 90 meq/Potassium Chloride 15 meq/ Potassium Phosphate 10 mmol/ Magnesium Sulfate 12 meq/Calcium Gluconate 15 meq/ Multivitamins 10 ml/Chromium/ Copper/Manganese/ Seleni/Zn 0.5 ml/ Insulin Human Regular 25 unit/ Total Parenteral Nutrition/Amino Acids/Dextrose/ Fat Emulsion Intravenous 1,400 ml @ 58.333 mls/ hr TPN CONT IV Last administered on 07/25/19at 22:24; Start 07/25/19 at 22:00; Stop 07/26/19 at 21:59; Status DC Propofol 20 ml @ As Directed STK-MED ONCE IV ; Start 07/25/19 at 11:07; Stop 07/25/19 at 11:07; Status DC Cellulose (Surgicel Hemostat 4x8) 1 each STK-MED ONCE .ROUTE Last administered on 07/25/19at 11:44; Start 07/25/19 at 11:55; Stop 07/25/19 at 11:56; Status DC Sevoflurane (Ultane) 60 ml STK-MED ONCE IH ; Start 07/25/19 at 12:46; Stop 07/25/19 at 12:46; Status DC Sodium Chloride 1,000 ml @ 1,000 mls/hr Q1H PRN IV hypotension; Start 07/25/19 at 13:51; Stop 07/25/19 at 19:50; Status DC Albumin Human 200 ml @ 200 mls/hr 1X PRN PRN IV Hypotension Last administered on 07/25/19at 14:51; Start 07/25/19 at 14:00; Stop 07/25/19 at 19:59; Status DC Diphenhydramine HCl (Benadryl) 25 mg 1X PRN PRN IV ITCHING; Start 07/25/19 at 14:00; Stop 07/26/19 at 13:59; Status DC Diphenhydramine HCl (Benadryl) 25 mg 1X PRN PRN IV ITCHING; Start 07/25/19 at 14:00; Stop 07/26/19 at 13:59; Status DC Sodium Chloride 1,000 ml @ 400 mls/hr Q2H30M PRN IV PATENCY; Start 07/25/19 at 13:51; Stop 07/26/19 at 01:50; Status DC Info (PHARMACY MONITORING -- do not chart) 1 each PRN DAILY PRN MC SEE COMMENTS; Start 07/25/19 at 14:00; Stop 07/28/19 at 08:16; Status DC Heparin Sodium (Porcine) (Hep Lock Adult) 500 unit STK-MED ONCE IVP ; Start 07/26/19 at 09:29; Stop 07/26/19 at 09:30; Status DC Sodium Chloride 1,000 ml @ 1,000 mls/hr Q1H PRN IV hypotension; Start 07/26/19 at 10:43; Stop 07/26/19 at 16:42; Status DC Sodium Chloride 1,000 ml @ 400 mls/hr Q2H30M PRN IV PATENCY; Start 07/26/19 at 10:43; Stop 07/26/19 at 22:42; Status DC Info (PHARMACY MONITORING -- do not chart) 1 each PRN DAILY PRN MC SEE COMMENTS; Start 07/26/19 at 10:45; Status UNV Info (PHARMACY MONITORING -- do not chart) 1 each PRN DAILY PRN MC SEE COMMENTS; Start 07/26/19 at 10:45; Status UNV Sodium Chloride 90 meq/Potassium Chloride 15 meq/ Magnesium Sulfate 12 meq/Calcium Gluconate 15 meq/ Multivitamins 10 ml/Chromium/ Copper/Manganese/ Seleni/Zn 0.5 ml/ Insulin Human Regular 25 unit/ Total Parenteral Nutrition/Amino Acids/Dextrose/ Fat Emulsion Intravenous 1,400 ml @ 58.333 mls/ hr TPN CONT IV Last administered on 07/26/19at 22:13; Start 07/26/19 at 22:00; Stop 07/27/19 at 21:59; Status DC Sodium Chloride 1,000 ml @ 1,000 mls/hr Q1H PRN IV hypotension; Start 07/27/19 at 07:50; Stop 07/27/19 at 13:49; Status DC Albumin Human 200 ml @ 200 mls/hr 1X ONCE IV ; Start 07/27/19 at 08:00; Stop 07/27/19 at 08:53; Status DC Diphenhydramine HCl (Benadryl) 25 mg 1X PRN PRN IV ITCHING; Start 07/27/19 at 08:00; Stop 07/28/19 at 07:59; Status DC Diphenhydramine HCl (Benadryl) 25 mg 1X PRN PRN IV ITCHING; Start 07/27/19 at 08:00; Stop 07/28/19 at 07:59; Status DC Info (PHARMACY MONITORING -- do not chart) 1 each PRN DAILY PRN MC SEE LUIS ALBERTO NTS; Start 07/27/19 at 08:00; Stop 07/28/19 at 08:16; Status DC Albumin Human 50 ml @ 50 mls/hr 1X ONCE IV ; Start 07/27/19 at 08:53; Stop 07/27/19 at 08:56; Status DC Albumin Human 200 ml @ 50 mls/hr PRN 1X PRN IV HYPOTENSION Last administered on 08/02/19at 11:54; Start 07/27/19 at 09:00; Stop 09/08/19 at 11:14; Status DC Meropenem 500 mg/ Sodium Chloride 50 ml @ 100 mls/hr Q12H IV Last administered on 08/16/19at 10:45; Start 07/27/19 at 10:00; Stop 08/16/19 at 12:37; Status DC Sodium Chloride 90 meq/Magnesium Sulfate 12 meq/ Calcium Gluconate 15 meq/ Multivitamins 10 ml/Chromium/ Copper/Manganese/ Seleni/Zn 0.5 ml/ Insulin Human Regular 25 unit/ Total Parenteral Nutrition/Amino Acids/Dextrose/ Fat Emulsion Intravenous 1,400 ml @ 58.333 mls/ hr TPN CONT IV Last administered on 07/27/19at 21:41; Start 07/27/19 at 22:00; Stop 07/28/19 at 21:59; Status DC Sodium Chloride 1,000 ml @ 1,000 mls/hr Q1H PRN IV hypotension; Start 07/28/19 at 07:58; Stop 07/28/19 at 13:57; Status DC Albumin Human 200 ml @ 200 mls/hr 1X PRN PRN IV Hypotension Last administered on 07/28/19at 09:30; Start 07/28/19 at 08:00; Stop 07/28/19 at 13:59; Status DC Sodium Chloride 1,000 ml @ 400 mls/hr Q2H30M PRN IV PATENCY; Start 07/28/19 at 07:58; Stop 07/28/19 at 19:57; Status DC Info (PHARMACY MONITORING -- do not chart) 1 each PRN DAILY PRN MC SEE COMMENTS; Start 07/28/19 at 08:00; Status Cancel Info (PHARMACY MONITORING -- do not chart) 1 each PRN DAILY PRN MC SEE COMMENTS; Start 07/28/19 at 08:15; Status UNV Sodium Chloride 90 meq/Potassium Phosphate 5 mmol/ Magnesium Sulfate 12 meq/Calcium Gluconate 15 meq/ Multivitamins 10 ml/Chromium/ Copper/Manganese/ Seleni/Zn 0.5 ml/ Insulin Human Regular 30 unit/ Total Parenteral Nutrition/Amino Acids/Dextrose/ Fat Emulsion Intravenous 1,400 ml @ 58.333 mls/ hr TPN CONT IV Last administered on 07/28/19at 22:08; Start 07/28/19 at 22:00; Stop 07/29/19 at 21:59; Status DC Linezolid/Dextrose 300 ml @ 300 mls/hr Q12HR IV Last administered on 08/08/19at 20:40; Start 07/29/19 at 11:00; Stop 08/09/19 at 08:10; Status DC Sodium Chloride 90 meq/Potassium Phosphate 15 mmol/ Magnesium Sulfate 12 meq/Calcium Gluconate 15 meq/ Multivitamins 10 ml/Chromium/ Copper/Manganese/ Seleni/Zn 0.5 ml/ Insulin Human Regular 30 unit/ Total Parenteral Nutrition/Amino Acids/Dextrose/ Fat Emulsion Intravenous 1,400 ml @ 58.333 mls/ hr TPN CONT IV Last administered on 07/29/19at 21:49; Start 07/29/19 at 22:00; Stop 07/30/19 at 21:59; Status DC Sodium Chloride 90 meq/Potassium Phosphate 15 mmol/ Magnesium Sulfate 12 meq/Calcium Gluconate 15 meq/ Multivitamins 10 ml/Chromium/ Copper/Manganese/ Seleni/Zn 0.5 ml/ Insulin Human Regular 40 unit/ Total Parenteral Nutrition/Amino Acids/Dextrose/ Fat Emulsion Intravenous 1,400 ml @ 58.333 mls/ hr TPN CONT IV Last administered on 07/30/19at 21:21; Start 07/30/19 at 22:00; Stop 07/31/19 at 21:59; Status DC Sodium Chloride 1,000 ml @ 1,000 mls/hr Q1H PRN IV hypotension; Start 07/30/19 at 13:26; Stop 07/30/19 at 19:25; Status DC Albumin Human 200 ml @ 200 mls/hr 1X PRN PRN IV Hypotension Last administered on 07/30/19at 15:00; Start 07/30/19 at 13:30; Stop 07/30/19 at 19:29; Status DC Sodium Chloride (Normal Saline Flush) 10 ml 1X PRN PRN IV AP catheter pack; Start 07/30/19 at 13:30; Stop 07/31/19 at 13:29; Status DC Sodium Chloride (Normal Saline Flush) 10 ml 1X PRN PRN IV FOLDED [employer] catheter pack; Start 07/30/19 at 13:30; Stop 07/31/19 at 13:29; Status DC Sodium Chloride 1,000 ml @ 400 mls/hr Q2H30M PRN IV PATENCY; Start 07/30/19 at 13:26; Stop 07/31/19 at 01:25; Status DC Info (PHARMACY MONITORING -- do not chart) 1 each PRN DAILY PRN MC SEE COMMENTS; Start 07/30/19 at 13:30; Stop 07/30/19 at 13:33; Status DC Info (PHARMACY MONITORING -- do not chart) 1 each PRN DAILY PRN MC SEE COMMENTS; Start 07/30/19 at 13:30; Stop 07/30/19 at 13:34; Status DC Sodium Chloride 90 meq/Potassium Phosphate 19 mmol/ Magnesium Sulfate 12 meq/Calcium Gluconate 15 meq/ Multivitamins 10 ml/Chromium/ Copper/Manganese/ Seleni/Zn 0.5 ml/ Insulin Human Regular 40 unit/ Total Parenteral Nutrition/Amino Acids/Dextrose/ Fat Emulsion Intravenous 1,400 ml @ 58.333 mls/ hr TPN CONT IV Last administered on 07/31/19at 21:54; Start 07/31/19 at 22:00; Stop 08/01/19 at 21:59; Status DC Sodium Chloride 1,000 ml @ 1,000 mls/hr Q1H PRN IV hypotension; Start 08/01/19 at 09:35; Stop 08/01/19 at 15:34; Status DC Albumin Human 200 ml @ 200 mls/hr 1X PRN PRN IV Hypotension; Start 08/01/19 at 09:45; Stop 08/01/19 at 15:44; Status DC Diphenhydramine HCl (Benadryl) 25 mg 1X PRN PRN IV ITCHING; Start 08/01/19 at 09:45; Stop 08/02/19 at 09:44; Status DC Diphenhydramine HCl (Benadryl) 25 mg 1X PRN PRN IV ITCHING; Start 08/01/19 at 09:45; Stop 08/02/19 at 09:44; Status DC Sodium Chloride 1,000 ml @ 400 mls/hr Q2H30M PRN IV PATENCY; Start 08/01/19 at 09:35; Stop 08/01/19 at 21:34; Status DC Info (PHARMACY MONITORING -- do not chart) 1 each PRN DAILY PRN MC SEE COMMENTS; Start 08/01/19 at 09:45; Status Cancel Sodium Chloride 100 meq/Potassium Phosphate 19 mmol/ Magnesium Sulfate 12 meq/Calcium Gluconate 15 meq/ Multivitamins 10 ml/Chromium/ Copper/Manganese/ Seleni/Zn 0.5 ml/ Insulin Human Regular 40 unit/ Potassium Chloride 20 meq/ Total Parenteral Nutrition/Amino Acids/Dextrose/ Fat Emulsion Intravenous 1,400 ml @ 58.333 mls/ hr TPN CONT IV Last administered on 08/01/19at 22:02; Start 08/01/19 at 22:00; Stop 08/02/19 at 21:59; Status DC Furosemide (Lasix) 40 mg 1X ONCE IVP Last administered on 08/01/19at 14:39; Start 08/01/19 at 14:30; Stop 08/01/19 at 14:31; Status DC Metronidazole 100 ml @ 100 mls/hr Q8HRS IV Last administered on 08/09/19at 06:04; Start 08/02/19 at 10:00; Stop 08/09/19 at 08:10; Status DC Sodium Chloride 1,000 ml @ 1,000 mls/hr Q1H PRN IV hypotension; Start 08/02/19 at 08:00; Stop 08/02/19 at 13:59; Status DC Albumin Human 200 ml @ 200 mls/hr 1X PRN PRN IV Hypotension; Start 08/02/19 at 08:00; Stop 08/02/19 at 13:59; Status DC Sodium Chloride 1,000 ml @ 400 mls/hr Q2H30M PRN IV PATENCY; Start 08/02/19 at 08:00; Stop 08/02/19 at 19:59; Status DC Info (PHARMACY MONITORING -- do not chart) 1 each PRN DAILY PRN MC SEE COMMENTS; Start 08/02/19 at 11:30; Status UNV Info (PHARMACY MONITORING -- do not chart) 1 each PRN DAILY PRN MC SEE COMMENTS; Start 08/02/19 at 11:30; Stop 08/04/19 at 12:13; Status DC Sodium Chloride 100 meq/Potassium Phosphate 19 mmol/ Magnesium Sulfate 12 meq/Calcium Gluconate 15 meq/ Multivitamins 10 ml/Chromium/ Copper/Manganese/ Seleni/Zn 0.5 ml/ Insulin Human Regular 40 unit/ Potassium Chloride 20 meq/ Total Parenteral Nutrition/Amino Acids/Dextrose/ Fat Emulsion Intravenous 1,400 ml @ 58.333 mls/ hr TPN CONT IV Last administered on 08/02/19at 21:52; Start 08/02/19 at 22:00; Stop 08/03/19 at 21:59; Status DC Sodium Chloride (Normal Saline Flush) 10 ml QSHIFT PRN IV AFTER MEDS AND BLOOD DRAWS; Start 08/02/19 at 15:00; Stop 08/30/19 at 11:27; Status DC Sodium Chloride (Normal Saline Flush) 10 ml PRN Q5MIN PRN IV AFTER MEDS AND BLOOD DRAWS; Start 08/02/19 at 15:00 Sodium Chloride (Normal Saline Flush) 20 ml PRN Q5MIN PRN IV AFTER MEDS AND BLOOD DRAWS; Start 08/02/19 at 15:00 Sodium Chloride 100 meq/Potassium Phosphate 19 mmol/ Magnesium Sulfate 12 meq/Calcium Gluconate 15 meq/ Multivitamins 10 ml/Chromium/ Copper/Manganese/ Seleni/Zn 0.5 ml/ Insulin Human Regular 40 unit/ Potassium Chloride 20 meq/ Total Parenteral Nutrition/Amino Acids/Dextrose/ Fat Emulsion Intravenous 1,400 ml @ 58.333 mls/ hr TPN CONT IV Last administered on 08/03/19at 21:20; Start 08/03/19 at 22:00; Stop 08/04/19 at 21:59; Status DC Lidocaine HCl (Buffered Lidocaine 1%) 3 ml STK-MED ONCE .ROUTE ; Start 08/03/19 at 13:16; Stop 08/03/19 at 13:16; Status DC Lidocaine HCl (Buffered Lidocaine 1%) 6 ml 1X ONCE INJ Last administered on 08/03/19at 13:45; Start 08/03/19 at 13:30; Stop 08/03/19 at 13:31; Status DC Albumin Human 100 ml @ 100 mls/hr 1X ONCE IV Last administered on 08/03/19at 15:41; Start 08/03/19 at 15:00; Stop 08/03/19 at 15:59; Status DC Albumin Human 50 ml @ 50 mls/hr 1X ONCE IV Last administered on 08/03/19at 15:00; Start 08/03/19 at 15:00; Stop 08/03/19 at 15:59; Status DC Info (PHARMACY MONITORING -- do not chart) 1 each PRN DAILY PRN MC SEE COMMENTS; Start 08/04/19 at 11:30; Status Cancel Info (PHARMACY MONITORING -- do not chart) 1 each PRN DAILY PRN MC SEE COMMENTS; Start 08/04/19 at 11:30; Status UNV Sodium Chloride 100 meq/Potassium Phosphate 10 mmol/ Magnesium Sulfate 12 meq/Calcium Gluconate 15 meq/ Multivitamins 10 ml/Chromium/ Copper/Manganese/ Seleni/Zn 0.5 ml/ Insulin Human Regular 35 unit/ Potassium Chloride 20 meq/ Total Parenteral Nutrition/Amino Acids/Dextrose/ Fat Emulsion Intravenous 1,400 ml @ 58.333 mls/ hr TPN CONT IV Last administered on 08/04/19at 22:10; Start 08/04/19 at 22:00; Stop 08/05/19 at 21:59; Status DC Sodium Chloride 100 meq/Potassium Phosphate 5 mmol/ Magnesium Sulfate 12 meq/Calcium Gluconate 15 meq/ Multivitamins 10 ml/Chromium/ Copper/Manganese/ Seleni/Zn 0.5 ml/ Insulin Human Regular 35 unit/ Potassium Chloride 20 meq/ Total Parenteral Nutrition/Amino Acids/Dextrose/ Fat Emulsion Intravenous 1,400 ml @ 58.333 mls/ hr TPN CONT IV Last administered on 08/05/19at 22:59; Start 08/05/19 at 22:00; Stop 08/06/19 at 21:59; Status DC Sodium Chloride 1,000 ml @ 1,000 mls/hr Q1H PRN IV hypotension; Start 08/06/19 at 08:27; Stop 08/06/19 at 14:26; Status DC Albumin Human 200 ml @ 200 mls/hr 1X PRN PRN IV Hypotension Last administered on 08/06/19at 09:18; Start 08/06/19 at 08:30; Stop 08/06/19 at 14:29; Status DC Sodium Chloride 1,000 ml @ 400 mls/hr Q2H30M PRN IV PATENCY; Start 08/06/19 at 08:27; Stop 08/06/19 at 20:26; Status DC Info (PHARMACY MONITORING -- do not chart) 1 each PRN DAILY PRN MC SEE COMMENTS; Start 08/06/19 at 08:30; Status Cancel Info (PHARMACY MONITORING -- do not chart) 1 each PRN DAILY PRN MC SEE COMMENTS; Start 08/06/19 at 08:30; Stop 08/14/19 at 13:10; Status DC Sodium Chloride 100 meq/Potassium Chloride 40 meq/ Magnesium Sulfate 15 meq/Calcium Gluconate 15 meq/ Multivitamins 10 ml/Chromium/ Copper/Manganese/ Seleni/Zn 0.5 ml/ Insulin Human Regular 35 unit/ Total Parenteral Nutrition/Amino Acids/Dextrose/ Fat Emulsion Intravenous 1,400 ml @ 58.333 mls/ hr TPN CONT IV Last administered on 08/06/19at 22:00; Start 08/06/19 at 22:00; Stop 08/07/19 at 21:59; Status DC Potassium Chloride/Water 100 ml @ 100 mls/hr 1X ONCE IV Last administered on 08/06/19at 17:28; Start 08/06/19 at 14:45; Stop 08/06/19 at 15:44; Status DC Sodium Chloride 100 meq/Potassium Chloride 40 meq/ Magnesium Sulfate 15 meq/Calcium Gluconate 15 meq/ Multivitamins 10 ml/Chromium/ Copper/Manganese/ Seleni/Zn 0.5 ml/ Insulin Human Regular 35 unit/ Total Parenteral Nutrition/Amino Acids/Dextrose/ Fat Emulsion Intravenous 1,400 ml @ 58.333 mls/ hr TPN CONT IV Last administered on 08/07/19at 22:46; Start 08/07/19 at 22:00; Stop 08/08/19 at 21:59; Status DC Sodium Chloride 100 meq/Potassium Chloride 40 meq/ Magnesium Sulfate 20 meq/Calcium Gluconate 15 meq/ Multivitamins 10 ml/Chromium/ Copper/Manganese/ Seleni/Zn 0.5 ml/ Insulin Human Regular 35 unit/ Total Parenteral Nutrition/Amino Acids/Dextrose/ Fat Emulsion Intravenous 1,400 ml @ 58.333 mls/ hr TPN CONT IV Last administered on 08/08/19at 22:31; Start 08/08/19 at 22:00; Stop 08/09/19 at 21:59; Status DC Fentanyl Citrate (Fentanyl 2ml Vial) 50 mcg PRN Q2HR PRN IVP PAIN Last administered on 08/15/19at 13:32; Start 08/08/19 at 21:00; Stop 08/16/19 at 12:53; Status DC Fentanyl Citrate (Fentanyl 2ml Vial) 25 mcg PRN Q2HR PRN IVP PAIN; Start 08/08/19 at 21:00; Stop 08/16/19 at 12:54; Status DC Enoxaparin Sodium (Lovenox 100mg Syringe) 100 mg Q12HR SQ ; Start 08/09/19 at 21:00; Status UNV Amino Acids/ Glycerin/ Electrolytes 1,000 ml @ 75 mls/hr [id number] IV ; Start 08/08/19 at 21:15; Status UNV Sodium Chloride 1,000 ml @ 1,000 mls/hr Q1H PRN IV hypotension; Start 08/09/19 at 07:56; Stop 08/09/19 at 13:55; Status DC Albumin Human 200 ml @ 200 mls/hr 1X PRN PRN IV Hypotension Last administered on 08/09/19at 08:40; Start 08/09/19 at 08:00; Stop 08/09/19 at 13:59; Status DC Sodium Chloride 1,000 ml @ 400 mls/hr Q2H30M PRN IV PATENCY; Start 08/09/19 at 07:56; Stop 08/09/19 at 19:55; Status DC Info (PHARMACY MONITORING -- do not chart) 1 each PRN DAILY PRN MC SEE COMMENTS; Start 08/09/19 at 08:00; Status UNV Info (PHARMACY MONITORING -- do not chart) 1 each PRN DAILY PRN MC SEE COMMENTS; Start 08/09/19 at 08:00; Status UNV Daptomycin 430 mg/ Sodium Chloride 50 ml @ 100 mls/hr Q24H IV Last administered on 08/09/19at 12:35; Start 08/09/19 at 09:00; Stop 08/09/19 at 12:49; Status DC Sodium Chloride 100 meq/Potassium Chloride 40 meq/ Magnesium Sulfate 20 meq/Calcium Gluconate 15 meq/ Multivitamins 10 ml/Chromium/ Copper/Manganese/ Seleni/Zn 0.5 ml/ Insulin Human Regular 35 unit/ Total Parenteral Nutrition/Amino Acids/Dextrose/ Fat Emulsion Intravenous 1,400 ml @ 58.333 mls/ hr TPN CONT IV Last administered on 08/09/19at 21:26; Start 08/09/19 at 22:00; Stop 08/10/19 at 21:59; Status DC Daptomycin 430 mg/ Sodium Chloride 50 ml @ 100 mls/hr Q48H IV ; Start 08/11/19 at 09:00; Stop 08/10/19 at 11:55; Status DC Sodium Chloride 100 meq/Potassium Chloride 40 meq/ Magnesium Sulfate 20 meq/Calcium Gluconate 15 meq/ Multivitamins 10 ml/Chromium/ Copper/Manganese/ Seleni/Zn 0.5 ml/ Insulin Human Regular 35 unit/ Total Parenteral Nutrition/Amino Acids/Dextrose/ Fat Emulsion Intravenous 1,400 ml @ 58.333 mls/ hr TPN CONT IV Last administered on 08/10/19at 22:27; Start 08/10/19 at 22:00; Stop 08/11/19 at 21:59; Status DC Daptomycin 430 mg/ Sodium Chloride 50 ml @ 100 mls/hr Q24H IV Last adminis tered on 08/12/19at 15:07; Start 08/10/19 at 13:00; Stop 08/13/19 at 13:15; Status DC Sodium Chloride 100 meq/Potassium Chloride 40 meq/ Magnesium Sulfate 20 meq/Calcium Gluconate 10 meq/ Multivitamins 10 ml/Chromium/ Copper/Manganese/ Seleni/Zn 0.5 ml/ Insulin Human Regular 35 unit/ Total Parenteral Nutrition/Amino Acids/Dextrose/ Fat Emulsion Intravenous 1,400 ml @ 58.333 mls/ hr TPN CONT IV Last administered on 08/12/19at 00:06; Start 08/11/19 at 22:00; Stop 08/12/19 at 21:59; Status DC Alteplase, Recombinant (Cathflo For Central Catheter Clearance) 1 mg 1X ONCE INT CAT Last administered on 08/12/19at 11:44; Start 08/12/19 at 10:45; Stop 08/12/19 at 10:46; Status DC Ondansetron HCl (Zofran) 4 mg PRN Q6HRS PRN IV NAUSEA/VOMITING; Start 08/15/19 at 07:00; Stop 08/16/19 at 06:59; Status DC Fentanyl Citrate (Fentanyl 2ml Vial) 25 mcg PRN Q5MIN PRN IV MILD PAIN 1-3; Start 08/15/19 at 07:00; Stop 08/16/19 at 06:59; Status DC Fentanyl Citrate (Fentanyl 2ml Vial) 50 mcg PRN Q5MIN PRN IV MODERATE TO SEVERE PAIN Last administered on 08/15/19at 10:17; Start 08/15/19 at 07:00; Stop 08/16/19 at 06:59; Status DC Ringer's Solution 1,000 ml @ 30 mls/hr Q24H IV ; Start 08/15/19 at 07:00; Stop 08/15/19 at 18:59; Status DC Lidocaine HCl (Xylocaine-Mpf 1% 2ml Vial) 2 ml PRN 1X PRN ID PRIOR TO IV START; Start 08/15/19 at 07:00; Stop 08/16/19 at 06:59; Status DC Prochlorperazine Edisylate (Compazine) 5 mg PACU PRN PRN IV NAUSEA, MRX1; Start 08/15/19 at 07:00; Stop 08/16/19 at 06:59; Status DC Sodium Acetate 50 meq/Potassium Acetate 55 meq/ Magnesium Sulfate 20 meq/Calcium Gluconate 10 meq/ Multivitamins 10 ml/Chromium/ Copper/Manganese/ Seleni/Zn 0.5 ml/ Insulin Human Regular 35 unit/ Total Parenteral Nutrition/Amino Acids/Dextrose/ Fat Emulsion Intravenous 1,400 ml @ 58.333 mls/ hr TPN CONT IV ; Start 08/12/19 at 22:00; Stop 08/12/19 at 14:15; Status DC Sodium Acetate 50 meq/Potassium Acetate 55 meq/ Magnesium Sulfate 20 meq/Calcium Gluconate 10 meq/ Multivitamins 10 ml/Chromium/ Copper/Manganese/ Seleni/Zn 0.5 ml/ Insulin Human Regular 35 unit/ Total Parenteral Nutrition/Amino Acids/Dextrose/ Fat Emulsion Intravenous 1,800 ml @ 75 mls/hr TPN CONT IV Last administered on 08/12/19at 22:38; Start 08/12/19 at 22:00; Stop 08/13/19 at 21:59; Status DC Sodium Chloride 1,000 ml @ 1,000 mls/hr Q1H PRN IV hypotension; Start 08/12/19 at 15:31; Stop 08/12/19 at 21:30; Status DC Diphenhydramine HCl (Benadryl) 25 mg 1X PRN PRN IV ITCHING; Start 08/12/19 at 15:45; Stop 08/13/19 at 15:44; Status DC Diphenhydramine HCl (Benadryl) 25 mg 1X PRN PRN IV ITCHING; Start 08/12/19 at 15:45; Stop 08/13/19 at 15:44; Status DC Sodium Chloride 1,000 ml @ 400 mls/hr Q2H30M PRN IV PATENCY; Start 08/12/19 at 15:31; Stop 08/13/19 at 03:30; Status DC Info (PHARMACY MONITORING -- do not chart) 1 each PRN DAILY PRN MC SEE COMMENTS; Start 08/12/19 at 15:45; Stop 09/13/19 at 14:14; Status DC Sodium Acetate 50 meq/Potassium Acetate 55 meq/ Magnesium Sulfate 20 meq/Calcium Gluconate 10 meq/ Multivitamins 10 ml/Chromium/ Copper/Manganese/ Seleni/Zn 0.5 ml/ Insulin Human Regular 35 unit/ Total Parenteral Nutrition/Amino Acids/Dextrose/ Fat Emulsion Intravenous 1,800 ml @ 75 mls/hr TPN CONT IV Last administered on 08/13/19at 22:03; Start 08/13/19 at 22:00; Stop 08/14/19 at 21:59; Status DC Daptomycin 430 mg/ Sodium Chloride 50 ml @ 100 mls/hr Q24H IV Last administered on 08/18/19at 13:00; Start 08/13/19 at 13:00; Stop 08/18/19 at 20:58; Status DC Heparin Sodium (Porcine) 1000 unit/Sodium Chloride 1,001 ml @ 1,001 mls/hr 1X ONCE IRR ; Start 08/15/19 at 06:00; Stop 08/15/19 at 06:59; Status DC Potassium Acetate 55 meq/Magnesium Sulfate 20 meq/ Calcium Gluconate 10 meq/ Multivitamins 10 ml/Chromium/ Copper/Manganese/ Seleni/Zn 0.5 ml/ Insulin Human Regular 35 unit/ Total Parenteral Nutrition/Amino Acids/Dextrose/ Fat Emulsion Intravenous 1,920 ml @ 80 mls/hr TPN CONT IV Last administered on 08/14/19at 22:10; Start 08/14/19 at 22:00; Stop 08/15/19 at 21:59; Status DC Dexamethasone Sodium Phosphate (Decadron) 4 mg STK-MED ONCE .ROUTE ; Start 08/15/19 at 10:56; Stop 08/15/19 at 10:57; Status DC Ondansetron HCl (Zofran) 4 mg STK-MED ONCE .ROUTE ; Start 08/15/19 at 10:56; Stop 08/15/19 at 10:57; Status DC Rocuronium [place] (Zemuron) 50 mg STK-MED ONCE .ROUTE ; Start 08/15/19 at 10:56; Stop 08/15/19 at 10:57; Status DC Fentanyl Citrate (Fentanyl 2ml Vial) 100 mcg STK-MED ONCE .ROUTE ; Start 08/15/19 at 10:56; Stop 08/15/19 at 10:57; Status DC Bupivacaine HCl/ Epinephrine Bitart (Sensorcain-Epi 0.5%-1:355349 Mpf) 30 ml STK-MED ONCE .ROUTE Last administered on 08/15/19at 12:01; Start 08/15/19 at 10:58; Stop 08/15/19 at 10:58; Status DC Cellulose (Surgicel Hemostat 2x14) 1 each STK-MED ONCE .ROUTE ; Start 08/15/19 at 10:58; Stop 08/15/19 at 10:59; Status DC Iohexol (Omnipaque 300 Mg/ml) 50 ml STK-MED ONCE .ROUTE ; Start 08/15/19 at 10:58; Stop 08/15/19 at 10:59; Status DC Cellulose (Surgicel Hemostat 4x8) 1 each STK-MED ONCE .ROUTE ; Start 08/15/19 at 10:58; Stop 08/15/19 at 10:59; Status DC Bisacodyl (Dulcolax Supp) 10 mg STK-MED ONCE .ROUTE ; Start 08/15/19 at 10:59; Stop 08/15/19 at 10:59; Status DC Heparin Sodium (Porcine) 1000 unit/Sodium Chloride 1,001 ml @ 1,001 mls/hr 1X ONCE IRR ; Start 08/15/19 at 12:00; Stop 08/15/19 at 12:59; Status DC Propofol 20 ml @ As Directed STK-MED ONCE IV ; Start 08/15/19 at 11:05; Stop 08/15/19 at 11:05; Status DC Sevoflurane (Ultane) 90 ml STK-MED ONCE IH ; Start 08/15/19 at 11:05; Stop 08/15/19 at 11:05; Status DC Sevoflurane (Ultane) 60 ml STK-MED ONCE IH ; Start 08/15/19 at 12:26; Stop 08/15/19 at 12:27; Status DC Propofol 20 ml @ As Directed STK-MED ONCE IV ; Start 08/15/19 at 12:26; Stop 08/15/19 at 12:27; Status DC Phenylephrine HCl (PHENYLEPHRINE in 0.9% NACL PF) 1 mg STK-MED ONCE IV ; Start 08/15/19 at 12:34; Stop 08/15/19 at 12:34; Status DC Heparin Sodium (Porcine) (Heparin Sodium) 5,000 unit Q12HR SQ Last administered on 08/24/19at 20:57; Start 08/15/19 at 21:00; Stop 08/25/19 at 09:59; Status DC Sodium Chloride (Normal Saline Flush) 3 ml QSHIFT PRN IV AFTER MEDS AND BLOOD DRAWS; Start 08/15/19 at 13:45 Naloxone HCl (Narcan) 0.4 mg PRN Q2MIN PRN IV SEE INSTRUCTIONS Last administered on 09/24/19at 15:15; Start 08/15/19 at 13:45 Sodium Chloride 1,000 ml @ 25 mls/hr Q24H IV Last administered on 09/13/19at 13:37; Start 08/15/19 at 13:37; Stop 09/16/19 at 13:09; Status DC Naloxone HCl (Narcan) 0.4 mg PRN Q2MIN PRN IV SEE INSTRUCTIONS; Start 08/15/19 at 14:30; Status UNV Sodium Chloride 1,000 ml @ 25 mls/hr Q24H IV ; Start 08/15/19 at 14:30; Status UNV Hydromorphone HCl 30 ml @ 0 mls/hr CONT PRN PRN IV PER PROTOCOL Last administered on 08/20/19at 16:08; Start 08/15/19 at 14:30; Stop 08/22/19 at 08:55; Status DC Potassium Acetate 55 meq/Magnesium Sulfate 20 meq/ Calcium Gluconate 10 meq/ Multivitamins 10 ml/Chromium/ Copper/Manganese/ Seleni/Zn 0.5 ml/ Insulin Human Regular 35 unit/ Total Parenteral Nutrition/Amino Acids/Dextrose/ Fat Emulsion Intravenous 1,920 ml @ 80 mls/hr TPN CONT IV Last administered on 08/15/19at 22:01; Start 08/15/19 at 22:00; Stop 08/16/19 at 21:59; Status DC Bumetanide (Bumex) 2 mg [id number] IV Last administered on 08/19/19at 13:50; Start 08/16/19 at 14:00; Stop 08/20/19 at 14:10; Status DC Meropenem 1 gm/ Sodium Chloride 100 ml @ 200 mls/hr Q8HRS IV Last administered on 09/09/19at 05:53; Start 08/16/19 at 14:00; Stop 09/09/19 at 09:31; Status DC Potassium Acetate 55 meq/Magnesium Sulfate 20 meq/ Calcium Gluconate 10 meq/ Multivitamins 10 ml/Chromium/ Copper/Manganese/ Seleni/Zn 0.5 ml/ Insulin Human Regular 35 unit/ Total Parenteral Nutrition/Amino Acids/Dextrose/ Fat Emulsion Intravenous 1,920 ml @ 80 mls/hr TPN CONT IV Last administered on 08/16/19at 22:02; Start 08/16/19 at 22:00; Stop 08/17/19 at 21:59; Status DC Hydromorphone HCl (Dilaudid Standard [employer]) 12 mg STK-MED ONCE IV ; Start 08/15/19 at 14:35; Stop 08/16/19 at 13:53; Status DC Artificial Tears (Artificial Tears) 1 drop PRN Q15MIN PRN OU DRY EYE Last administered on 10/11/19at 21:17; Start 08/17/19 at 05:30 Hydromorphone HCl (Dilaudid Standard [employer]) 12 mg STK-MED ONCE IV ; Start 08/16/19 at 12:05; Stop 08/17/19 at 09:15; Status DC Potassium Acetate 65 meq/Magnesium Sulfate 20 meq/ Calcium Gluconate 10 meq/ Multivitamins 10 ml/Chromium/ Copper/Manganese/ Seleni/Zn 0.5 ml/ Insulin Human Regular 30 unit/ Total Parenteral Nutrition/Amino Acids/Dextrose/ Fat Emulsion Intravenous 1,920 ml @ 80 mls/hr TPN CONT IV Last administered on 08/17/19at 22:22; Start 08/17/19 at 22:00; Stop 08/18/19 at 21:59; Status DC Cyclobenzaprine HCl (Flexeril) 10 mg PRN Q6HRS PRN PO MUSCLE SPASMS; Start 08/18/19 at 10:45 Potassium Acetate 55 meq/Magnesium Sulfate 20 meq/ Calcium Gluconate 10 meq/ Multivitamins 10 ml/Chromium/ Copper/Manganese/ Seleni/Zn 0.5 ml/ Insulin Human Regular 30 unit/ Total Parenteral Nutrition/Amino Acids/Dextrose/ Fat Emulsion Intravenous 1,920 ml @ 80 mls/hr TPN CONT IV Last administered on 08/19/19at 01:00; Start 08/18/19 at 22:00; Stop 08/19/19 at 21:59; Status DC Magnesium Sulfate 50 ml @ 25 mls/hr 1X ONCE IV Last administered on 08/18/19at 17:18; Start 08/18/19 at 12:45; Stop 08/18/19 at 14:44; Status DC Potassium Chloride/Water 100 ml @ 100 mls/hr 1X ONCE IV Last administered on 08/19/19at 11:27; Start 08/19/19 at 12:00; Stop 08/19/19 at 12:59; Status DC Hydromorphone HCl (Dilaudid Standard [employer]) 12 mg STK-MED ONCE IV ; Start 08/17/19 at 10:50; Stop 08/19/19 at 11:02; Status DC Hydromorphone HCl (Dilaudid Standard [employer]) 12 mg STK-MED ONCE IV ; Start 08/18/19 at 13:47; Stop 08/19/19 at 11:03; Status DC Potassium Acetate 30 meq/Magnesium Sulfate 20 meq/ Calcium Gluconate 10 meq/ Multivitamins 10 ml/Chromium/ Copper/Manganese/ Seleni/Zn 0.5 ml/ Insulin Human Regular 30 unit/ Potassium Chloride 30 meq/ Total Parenteral Nutrition/Amino Acids/Dextrose/ Fat Emulsion Intravenous 1,920 ml @ 80 mls/hr TPN CONT IV Last administered on 08/19/19at 22:34; Start 08/19/19 at 22:00; Stop 08/20/19 at 21:59; Status DC Potassium Chloride/Water 100 ml @ 100 mls/hr Q1H IV Last administered on 08/20/19at 13:05; Start 08/20/19 at 07:00; Stop 08/20/19 at 10:59; Status DC Magnesium Sulfate 50 ml @ 25 mls/hr 1X ONCE IV Last administered on 08/20/19at 10:34; Start 08/20/19 at 10:30; Stop 08/20/19 at 12:29; Status DC Potassium Chloride 75 meq/ Magnesium Sulfate 20 meq/Calcium Gluconate 10 meq/ Multivitamins 10 ml/Chromium/ Copper/Manganese/ Seleni/Zn 0.5 ml/ Insulin Human Regular 30 unit/ Total Parenteral Nutrition/Amino Acids/Dextrose/ Fat Emulsion Intravenous 1,920 ml @ 80 mls/hr TPN CONT IV Last administered on 08/20/19at 21:51; Start 08/20/19 at 22:00; Stop 08/21/19 at 22:00; Status DC Potassium Chloride 75 meq/ Magnesium Sulfate 20 meq/Calcium Gluconate 10 meq/ Multivitamins 10 ml/Chromium/ Copper/Manganese/ Seleni/Zn 0.5 ml/ Insulin Human Regular 25 unit/ Total Parenteral Nutrition/Amino Acids/Dextrose/ Fat Emulsion Intravenous 1,920 ml @ 80 mls/hr TPN CONT IV Last administered on 08/21/19at 22:04; Start 08/21/19 at 22:00; Stop 08/22/19 at 21:59; Status DC Hydromorphone HCl (Dilaudid) 0.4 mg PRN Q4HRS PRN IVP PAIN Last administered on 08/22/19at 10:57; Start 08/22/19 at 09:00; Stop 08/22/19 at 18:59; Status DC Micafungin Sodium 100 mg/Dextrose 100 ml @ 100 mls/hr Q24H IV Last administered on 09/13/19at 12:17; Start 08/22/19 at 11:00; Stop 09/14/19 at 09:59; Status DC Daptomycin 485 mg/ Sodium Chloride 50 ml @ 100 mls/hr Q24H IV Last administered on 08/29/19at 13:10; Start 08/22/19 at 11:00; Stop 08/30/19 at 07:44; Status DC Potassium Chloride 75 meq/ Magnesium Sulfate 15 meq/Calcium Gluconate 8 meq/ Multivitamins 10 ml/Chromium/ Copper/Manganese/ Seleni/Zn 0.5 ml/ Insulin Human Regular 25 unit/ Total Parenteral Nutrition/Amino Acids/Dextrose/ Fat Emulsion Intravenous 1,920 ml @ 80 mls/hr TPN CONT IV Last administered on 08/22/19at 23:08; Start 08/22/19 at 22:00; Stop 08/23/19 at 21:59; Status DC Haloperidol Lactate (Haldol Inj) 3 mg 1X ONCE IVP Last administered on 08/22/19at 14:37; Start 08/22/19 at 14:30; Stop 08/22/19 at 14:31; Status DC Hydromorphone HCl (Dilaudid) 1 mg PRN Q4HRS PRN IVP PAIN Last administered on 09/05/19at 06:25; Start 08/22/19 at 19:00; Stop 09/05/19 at 17:10; Status DC Potassium Chloride 75 meq/ Magnesium Sulfate 15 meq/Calcium Gluconate 8 meq/ Multivitamins 10 ml/Chromium/ Copper/Manganese/ Seleni/Zn 0.5 ml/ Insulin Human Regular 20 unit/ Total Parenteral Nutrition/Amino Acids/Dextrose/ Fat Emulsion Intravenous 1,920 ml @ 80 mls/hr TPN CONT IV Last administered on 08/23/19at 22:10; Start 08/23/19 at 22:00; Stop 08/24/19 at 21:59; Status DC Lidocaine HCl (Buffered Lidocaine 1%) 3 ml STK-MED ONCE .ROUTE ; Start 08/24/19 at 11:31; Stop 08/24/19 at 11:31; Status DC Lidocaine HCl (Buffered Lidocaine 1%) 3 ml STK-MED ONCE .ROUTE ; Start 08/24/19 at 12:28; Stop 08/24/19 at 12:29; Status DC Lidocaine HCl (Buffered Lidocaine 1%) 6 ml 1X ONCE INJ Last administered on 08/24/19at 12:53; Start 08/24/19 at 12:45; Stop 08/24/19 at 12:46; Status DC Potassium Chloride 75 meq/ Magnesium Sulfate 15 meq/Calcium Gluconate 8 meq/ Multivitamins 10 ml/Chromium/ Copper/Manganese/ Seleni/Zn 0.5 ml/ Insulin Human Regular 20 unit/ Total Parenteral Nutrition/Amino Acids/Dextrose/ Fat Emulsion Intravenous 1,920 ml @ 80 mls/hr TPN CONT IV Last administered on 08/24/19at 22:00; Start 08/24/19 at 22:00; Stop 08/25/19 at 21:59; Status DC Potassium Chloride 75 meq/ Magnesium Sulfate 15 meq/Calcium Gluconate 8 meq/ Multivitamins 10 ml/Chromium/ Copper/Manganese/ Seleni/Zn 0.5 ml/ Insulin Human Regular 15 unit/ Total Parenteral Nutrition/Amino Acids/Dextrose/ Fat Emulsion Intravenous 1,920 ml @ 80 mls/hr TPN CONT IV Last administered on 08/25/19at 22:28; Start 08/25/19 at 22:00; Stop 08/26/19 at 21:59; Status DC Vecuronium [place] (Norcuron Bolus) 6 mg PRN Q6HRS PRN IV VENT ASYNCHRONY; Start 08/25/19 at 19:15; Stop 08/25/19 at 19:35; Status DC Bumetanide (Bumex) 2 mg 1X ONCE IV Last administered on 08/25/19at 22:09; Start 08/25/19 at 19:45; Stop 08/25/19 at 19:46; Status DC Lidocaine HCl (Buffered Lidocaine 1%) 3 ml STK-MED ONCE .ROUTE ; Start 08/26/19 at 07:59; Stop 08/26/19 at 07:59; Status DC Midazolam HCl (Versed) 5 mg STK-MED ONCE .ROUTE ; Start 08/26/19 at 08:36; Stop 08/26/19 at 08:36; Status DC Fentanyl Citrate (Fentanyl 5ml Vial) 250 mcg STK-MED ONCE .ROUTE ; Start 08/26/19 at 08:36; Stop 08/26/19 at 08:37; Status DC Lidocaine HCl (Buffered Lidocaine 1%) 3 ml 1X ONCE IJ Last administered on 08/26/19at 09:30; Start 08/26/19 at 09:15; Stop 08/26/19 at 09:16; Status DC Midazolam HCl (Versed) 5 mg 1X ONCE IV Last administered on 08/26/19at 09:30; Start 08/26/19 at 09:15; Stop 08/26/19 at 09:16; Status DC Fentanyl Citrate (Fentanyl 5ml Vial) 250 mcg 1X ONCE IV Last administered on 08/26/19at 09:30; Start 08/26/19 at 09:15; Stop 08/26/19 at 09:16; Status DC Bumetanide (Bumex) 2 mg DAILY IV Last administered on 09/05/19at 08:07; Start 08/26/19 at 10:00; Stop 09/05/19 at 17:15; Status DC Potassium Chloride 75 meq/ Magnesium Sulfate 15 meq/ Multivitamins 10 ml/Chromium/ Copper/Manganese/ Seleni/Zn 0.5 ml/ Insulin Human Regular 15 unit/ Total Parenteral Nutrition/Amino Acids/Dextrose/ Fat Emulsion Intravenous 1,920 ml @ 80 mls/hr TPN CONT IV Last administered on 08/26/19at 21:59; Start 08/26/19 at 22:00; Stop 08/27/19 at 21:59; Status DC Metoclopramide HCl (Reglan Vial) 10 mg PRN Q3HRS PRN IVP NAUSEA/VOMITING-3rd choice Last administered on 09/01/19at 04:25; Start 08/27/19 at 16:45 Potassium Chloride 75 meq/ Magnesium Sulfate 15 meq/ Multivitamins 10 ml/Chromium/ Copper/Manganese/ Seleni/Zn 0.5 ml/ Insulin Human Regular 15 unit/ Total Parenteral Nutrition/Amino Acids/Dextrose/ Fat Emulsion Intravenous 1,920 ml @ 80 mls/hr TPN CONT IV Last administered on 08/27/19at 22:41; Start 08/27/19 at 22:00; Stop 08/28/19 at 21:59; Status DC Magnesium Sulfate 50 ml @ 25 mls/hr 1X ONCE IV Last administered on 08/28/19at 10:44; Start 08/28/19 at 09:00; Stop 08/28/19 at 10:59; Status DC Potassium Chloride/Water 100 ml @ 100 mls/hr 1X ONCE IV Last administered on 08/28/19at 09:37; Start 08/28/19 at 09:00; Stop 08/28/19 at 09:59; Status DC Duloxetine HCl (Cymbalta) 30 mg DAILY PO Last administered on 08/29/19at 09:48; Start 08/28/19 at 14:00; Stop 08/31/19 at 10:25; Status DC Potassium Chloride 80 meq/ Magnesium Sulfate 20 meq/ Multivitamins 10 ml/Chromium/ Copper/Manganese/ Seleni/Zn 0.5 ml/ Insulin Human Regular 15 unit/ Total Parenteral Nutrition/Amino Acids/Dextrose/ Fat Emulsion Intravenous 1,920 ml @ 80 mls/hr TPN CONT IV Last administered on 08/28/19at 21:42; Start 08/28/19 at 22:00; Stop 08/29/19 at 21:59; Status DC Potassium Chloride 80 meq/ Magnesium Sulfate 20 meq/ Multivitamins 10 ml/Chromium/ Copper/Manganese/ Seleni/Zn 0.5 ml/ Insulin Human Regular 15 unit/ Total Parenteral Nutrition/Amino Acids/Dextrose/ Fat Emulsion Intravenous 1,920 ml @ 80 mls/hr TPN CONT IV Last administered on 08/29/19at 22:20; Start 08/29/19 at 22:00; Stop 08/30/19 at 21:59; Status DC Lidocaine HCl (Buffered Lidocaine 1%) 3 ml STK-MED ONCE .ROUTE ; Start 08/30/19 at 09:54; Stop 08/30/19 at 09:55; Status DC Hydromorphone HCl (Dilaudid Standard [employer]) 12 mg STK-MED ONCE IV ; Start 08/19/19 at 15:50; Stop 08/30/19 at 11:24; Status DC Potassium Chloride 80 meq/ Magnesium Sulfate 20 meq/ Multivitamins 10 ml/Chromium/ Copper/Manganese/ Seleni/Zn 0.5 ml/ Insulin Human Regular 15 unit/ Total Parenteral Nutrition/Amino Acids/Dextrose/ Fat Emulsion Intravenous 1,920 ml @ 80 mls/hr TPN CONT IV Last administered on 08/30/19at 21:40; Start 08/30/19 at 22:00; Stop 08/31/19 at 21:59; Status DC Lidocaine HCl (Buffered Lidocaine 1%) 6 ml 1X ONCE INJ Last administered on 08/30/19at 14:15; Start 08/30/19 at 14:15; Stop 08/30/19 at 14:16; Status DC Potassium Chloride 80 meq/ Magnesium Sulfate 20 meq/ Multivitamins 10 ml/Chromium/ Copper/Manganese/ Seleni/Zn 1 ml/ Insulin Human Regular 15 unit/ Total Parenteral Nutrition/Amino Acids/Dextrose/ Fat Emulsion Intravenous 1,920 ml @ 80 mls/hr TPN CONT IV Last administered on 08/31/19at 22:04; Start 08/31/19 at 22:00; Stop 09/01/19 at 21:59; Status DC Potassium Chloride/Water 100 ml @ 100 mls/hr 1X ONCE IV Last administered on 09/01/19at 11:34; Start 09/01/19 at 11:00; Stop 09/01/19 at 11:59; Status DC Potassium Chloride 90 meq/ Magnesium Sulfate 20 meq/ Multivitamins 10 ml/Chromium/ Copper/Manganese/ Seleni/Zn 1 ml/ Insulin Human Regular 15 unit/ Total Parenteral Nutrition/Amino Acids/Dextrose/ Fat Emulsion Intravenous 1,920 ml @ 80 mls/hr TPN CONT IV Last administered on 09/01/19at 22:57; Start 09/01/19 at 22:00; Stop 09/02/19 at 21:59; Status DC Potassium Chloride 90 meq/ Magnesium Sulfate 20 meq/ Multivitamins 10 ml /Chromium/ Copper/Manganese/ Seleni/Zn 1 ml/ Insulin Human Regular 15 unit/ Total Parenteral Nutrition/Amino Acids/Dextrose/ Fat Emulsion Intravenous 1,920 ml @ 80 mls/hr TPN CONT IV Last administered on 09/02/19at 22:48; Start 09/02/19 at 22:00; Stop 09/03/19 at 21:59; Status DC Potassium Chloride 90 meq/ Magnesium Sulfate 20 meq/ Multivitamins 10 ml/Chromium/ Copper/Manganese/ Seleni/Zn 1 ml/ Insulin Human Regular 15 unit/ Total Parenteral Nutrition/Amino Acids/Dextrose/ Fat Emulsion Intravenous 1,890 ml @ 78.75 mls/ hr TPN CONT IV Last administered on 09/03/19at 22:15; Start 09/03/19 at 22:00; Stop 09/04/19 at 21:59; Status DC Linezolid/Dextrose 300 ml @ 300 mls/hr Q12HR IV Last administered on 09/06/19at 21:08; Start 09/04/19 at 09:00; Stop 09/07/19 at 08:11; Status DC Daptomycin 450 mg/ Sodium Chloride 50 ml @ 100 mls/hr Q24H IV Last administered on 09/07/19at 09:25; Start 09/04/19 at 09:00; Stop 09/08/19 at 08:30; Status DC Potassium Chloride 90 meq/ Magnesium Sulfate 20 meq/ Multivitamins 10 ml/Chromium/ Copper/Manganese/ Seleni/Zn 1 ml/ Insulin Human Regular 15 unit/ Total Parenteral Nutrition/Amino Acids/Dextrose/ Fat Emulsion Intravenous 1,890 ml @ 78.75 mls/ hr TPN CONT IV Last administered on 09/04/19at 21:34; Start 09/04/19 at 22:00; Stop 09/05/19 at 21:59; Status DC Lorazepam (Ativan Inj) 2 mg STK-MED ONCE .ROUTE ; Start 09/04/19 at 14:58; Stop 09/04/19 at 14:58; Status DC Metoprolol Tartrate (Lopressor Vial) 5 mg 1X ONCE IVP Last administered on 09/04/19at 15:31; Start 09/04/19 at 15:15; Stop 09/04/19 at 15:16; Status DC Lorazepam (Ativan Inj) 2 mg 1X ONCE IVP Last administered on 09/04/19at 15:30; Start 09/04/19 at 15:15; Stop 09/04/19 at 15:16; Status DC Enoxaparin Sodium (Lovenox 40mg Syringe) 40 mg Q24H SQ Last administered on 09/23/19at 17:44; Start 09/04/19 at 17:00; Stop 09/25/19 at 06:50; Status DC Lorazepam (Ativan Inj) 1 mg PRN Q4HRS PRN IVP ANXIETY / AGITATION MILD-MOD Last administered on 09/18/19at 15:55; Start 09/04/19 at 19:15; Stop 09/20/19 at 11:45; Status DC Lorazepam (Ativan Inj) 2 mg PRN Q4HRS PRN IVP ANXIETY / AGITATION SEVERE Last administered on 09/19/19at 07:55; Start 09/04/19 at 19:15; Stop 09/20/19 at 11:45; Status DC Fentanyl Citrate (Fentanyl 2ml Vial) 50 mcg PRN Q4HRS PRN IVP SEVERE PAIN Last administered on 10/01/19at 05:15; Start 09/05/19 at 13:15; Stop 10/02/19 at 09:29; Status DC Fentanyl Citrate (Fentanyl 2ml Vial) 25 mcg PRN Q4HRS PRN IVP MODERATE PAIN Last administered on 10/01/19at 00:27; Start 09/05/19 at 13:15; Stop 10/02/19 at 09:30; Status DC Potassium Chloride 90 meq/ Magnesium Sulfate 20 meq/ Multivitamins 10 ml/Chromium/ Copper/Manganese/ Seleni/Zn 1 ml/ Insulin Human Regular 15 unit/ Total Parenteral Nutrition/Amino Acids/Dextrose/ Fat Emulsion Intravenous 1,890 ml @ 78.75 mls/ hr TPN CONT IV Last administered on 09/05/19at 22:18; Start 09/05/19 at 22:00; Stop 09/06/19 at 21:59; Status DC Furosemide (Lasix) 40 mg 1X ONCE IVP Last administered on 09/05/19at 21:51; Start 09/05/19 at 21:45; Stop 09/05/19 at 21:48; Status DC Albumin Human 100 ml @ 100 mls/hr 1X PRN PRN IV SEE COMMENTS; Start 09/06/19 at 01:30 Furosemide (Lasix) 40 mg [id number] IVP Last administered on 09/21/19at 08:04; Start 09/06/19 at 14:00; Stop 09/21/19 at 13:07; Status DC Potassium Chloride 90 meq/ Magnesium Sulfate 20 meq/ Multivitamins 10 ml/Chromium/ Copper/Manganese/ Seleni/Zn 1 ml/ Insulin Human Regular 15 unit/ Total Parenteral Nutrition/Amino Acids/Dextrose/ Fat Emulsion Intravenous 1,800 ml @ 75 mls/hr TPN CONT IV Last administered on 09/06/19at 22:31; Start 08/18 01/07 at 22:00; Stop 09/07/19 at 21:59; Status DC Potassium Chloride 90 meq/ Magnesium Sulfate 20 meq/ Multivitamins 10 ml/Chrom ium/ Copper/Manganese/ Seleni/Zn 1 ml/ Insulin Human Regular 15 unit/ Total Parenteral Nutrition/Amino Acids/Dextrose/ Fat Emulsion Intravenous 1,800 ml @ 75 mls/hr TPN CONT IV Last administered on 09/07/19at 22:28; Start 09/07/19 at 22:00; Stop 09/08/19 at 21:59; Status DC Potassium Chloride 110 meq/ Magnesium Sulfate 20 meq/ Multivitamins 10 ml/Chromium/ Copper/Manganese/ Seleni/Zn 1 ml/ Insulin Human Regular 15 unit/ Total Parenteral Nutrition/Amino Acids/Dextrose/ Fat Emulsion Intravenous 1,800 ml @ 75 mls/hr TPN CONT IV Last administered on 09/08/19at 22:01; Start 09/08/19 at 22:00; Stop 09/09/19 at 21:59; Status DC Saliva Substitute (Biotene Moisturizing Mouth) 2 spray PRN Q15MIN PRN PO DRY MOUTH; Start 09/08/19 at 11:00 Potassium Chloride 110 meq/ Magnesium Sulfate 20 meq/ Multivitamins 10 ml/Chromium/ Copper/Manganese/ Seleni/Zn 1 ml/ Insulin Human Regular 15 unit/ Total Parenteral Nutrition/Amino Acids/Dextrose/ Fat Emulsion Intravenous 1,800 ml @ 75 mls/hr TPN CONT IV Last administered on 09/09/19at 22:21; Start 09/09/19 at 22:00; Stop 09/10/19 at 21:59; Status DC Potassium Chloride 110 meq/ Magnesium Sulfate 20 meq/ Multivitamins 10 ml/Chromium/ Copper/Manganese/ Seleni/Zn 1 ml/ Insulin Human Regular 15 unit/ Total Parenteral Nutrition/Amino Acids/Dextrose/ Fat Emulsion Intravenous 1,800 ml @ 75 mls/hr TPN CONT IV Last administered on 09/10/19at 22:04; Start 08/19 07/07 at 22:00; Stop 09/11/19 at 21:59; Status DC Potassium Chloride 110 meq/ Magnesium Sulfate 20 meq/ Multivitamins 10 ml/Glass Deposition Tender mium/ Copper/Manganese/ Seleni/Zn 1 ml/ Insulin Human Regular 15 unit/ Total Parenteral Nutrition/Amino Acids/Dextrose/ Fat Emulsion Intravenous 1,800 ml @ 75 mls/hr TPN CONT IV Last administered on 09/11/19at 22:48; Start 09/11/19 at 22:00; Stop 09/12/19 at 21:59; Status DC Potassium Chloride 70 meq/ Magnesium Sulfate 20 meq/ Multivitamins 10 ml/Chromium/ Copper/Manganese/ Seleni/Zn 1 ml/ Insulin Human Regular 15 unit/ Total Parenteral Nutrition/Amino Acids/Dextrose/ Fat Emulsion Intravenous 1,800 ml @ 75 mls/hr TPN CONT IV Last administered on 09/12/19at 21:39; Start 09/12/19 at 22:00; Stop 09/13/19 at 21:59; Status DC Meropenem 500 mg/ Sodium Chloride 50 ml @ 100 mls/hr Q6HRS IV Last administered on 09/14/19at 06:02; Start 09/12/19 at 18:00; Stop 09/14/19 at 09:59; Status DC Barium Sulfate (Varibar Thin Liquid Apple) 148 gm 1X ONCE PO ; Start 09/13/19 at 11:45; Stop 09/13/19 at 11:49; Status DC Potassium Chloride 70 meq/ Magnesium Sulfate 20 meq/ Multivitamins 10 ml/Chromium/ Copper/Manganese/ Seleni/Zn 1 ml/ Insulin Human Regular 15 unit/ Total Parenteral Nutrition/Amino Acids/Dextrose/ Fat Emulsion Intravenous 1,800 ml @ 75 mls/hr TPN CONT IV Last administered on 09/13/19at 22:27; Start 09/13/19 at 22:00; Stop 09/14/19 at 21:59; Status DC Piperacillin Sod/ Tazobactam Sod 3.375 gm/Sodium Chloride 50 ml @ 100 mls/hr Q6HRS IV Last administered on 09/22/19at 06:10; Start 09/14/19 at 12:00; Stop 09/22/19 at 07:26; Status DC Potassium Chloride 70 meq/ Magnesium Sulfate 20 meq/ Multivitamins 10 ml/Ch romium/ Copper/Manganese/ Seleni/Zn 1 ml/ Insulin Human Regular 15 unit/ Total Parenteral Nutrition/Amino Acids/Dextrose/ Fat Emulsion Intravenous 1,800 ml @ 75 mls/hr TPN CONT IV Last administered on 09/14/19at 22:03; Start 09/14/19 at 22:00; Stop 09/15/19 at 21:59; Status DC Potassium Chloride 70 meq/ Magnesium Sulfate 20 meq/ Multivitamins 10 ml/Chromium/ Copper/Manganese/ Seleni/Zn 1 ml/ Insulin Human Regular 15 unit/ Total Parenteral Nutrition/Amino Acids/Dextrose/ Fat Emulsion Intravenous 1,800 ml @ 75 mls/hr TPN CONT IV Last administered on 09/15/19at 22:33; Start 09/15/19 at 22:00; Stop 09/16/19 at 21:59; Status DC Potassium Chloride 70 meq/ Magnesium Sulfate 20 meq/ Multivitamins 10 ml/Chromium/ Copper/Manganese/ Seleni/Zn 1 ml/ Insulin Human Regular 15 unit/ Total Parenteral Nutrition/Amino Acids/Dextrose/ Fat Emulsion Intravenous 1,800 ml @ 75 mls/hr TPN CONT IV Last administered on 09/16/19at 23:13; Start 09/16/19 at 22:00; Stop 09/17/19 at 21:59; Status DC Potassium Chloride 80 meq/ Magnesium Sulfate 20 meq/ Multivitamins 10 ml/Chromium/ Copper/Manganese/ Seleni/Zn 1 ml/ Insulin Human Regular 15 unit/ Total Parenteral Nutrition/Amino Acids/Dextrose/ Fat Emulsion Intravenous 1,800 ml @ 75 mls/hr TPN CONT IV Last administered on 09/17/19at 22:30; Start 09/17/19 at 22:00; Stop 09/18/19 at 21:59; Status DC Potassium Chloride 80 meq/ Magnesium Sulfate 20 meq/ Multivitamins 10 ml/Chromium/ Copper/Manganese/ Seleni/Zn 1 ml/ Insulin Human Regular 15 unit/ Total Parenteral Nutrition/Amino Acids/Dextrose/ Fat Emulsion Intravenous 1,800 ml @ 75 mls/hr TPN CONT IV Last administered on 09/18/19at 21:54; Start 09/18/19 at 22:00; Stop 09/19/19 at 21:59; Status DC Potassium Chloride/Water 100 ml @ 100 mls/hr 1X ONCE IV Last administered on 09/19/19at 10:15; Start 09/19/19 at 10:00; Stop 09/19/19 at 10:59; Status DC Potassium Chloride 90 meq/ Magnesium Sulfate 20 meq/ Multivitamins 10 ml/Chromium/ Copper/Manganese/ Seleni/Zn 1 ml/ Insulin Human Regular 20 unit/ Total Parenteral Nutrition/Amino Acids/Dextrose/ Fat Emulsion Intravenous 1,800 ml @ 75 mls/hr TPN CONT IV Last administered on 09/19/19at 22:28; Start 09/19/19 at 22:00; Stop 09/20/19 at 21:59; Status DC Potassium Chloride 90 meq/ Magnesium Sulfate 20 meq/ Multivitamins 10 ml/Chromium/ Copper/Manganese/ Seleni/Zn 1 ml/ Insulin Human Regular 20 unit/ Total Parenteral Nutrition/Amino Acids/Dextrose/ Fat Emulsion Intravenous 1,800 ml @ 75 mls/hr TPN CONT IV Last administered on 09/20/19at 22:08; Start 09/20/19 at 22:00; Stop 09/21/19 at 21:59; Status DC Lorazepam (Ativan Inj) 0.25 mg PRN Q4HRS PRN IVP ANXIETY / AGITATION Last administered on 10/01/19at 02:25; Start 09/21/19 at 07:30 Potassium Chloride 90 meq/ Magnesium Sulfate 20 meq/ Multivitamins 10 ml/Chromium/ Copper/Manganese/ Seleni/Zn 1 ml/ Insulin Human Regular 20 unit/ Total Parenteral Nutrition/Amino Acids/Dextrose/ Fat Emulsion Intravenous 1,800 ml @ 75 mls/hr TPN CONT IV Last administered on 09/21/19at 23:13; Start 09/21/19 at 22:00; Stop 09/22/19 at 21:59; Status DC Furosemide (Lasix) 40 mg DAILY IVP Last administered on 09/23/19at 11:14; Start 09/21/19 at 13:30; Stop 09/25/19 at 09:12; Status DC Fluoxetine HCl (PROzac) 20 mg QHS PEG Last administered on 10/14/19at 21:29; Start 09/22/19 at 21:00 Fentanyl (Duragesic 50mcg/ Hr Patch) 1 patch Q72H TD Last administered on 09/22/19at 21:22; Start 09/22/19 at 21:00; Stop 10/01/19 at 12:00; Status DC Potassium Chloride 40 meq/ Potassium Acetate 60 meq/Magnesium Sulfate 10 meq/ Multivitamins 10 ml/Chromium/ Copper/Manganese/ Seleni/Zn 1 ml/ Insulin Human Regular 20 unit/ Total Parenteral Nutrition/Amino Acids/Dextrose/ Fat Emulsion Intravenous 1,800 ml @ 75 mls/hr TPN CONT IV Last administered on 09/23/19at 00:03; Start 09/22/19 at 22:00; Stop 09/23/19 at 21:59; Status DC Potassium Acetate 80 meq/Magnesium Sulfate 5 meq/ Multivitamins 10 ml/Chromium/ Copper/Manganese/ Seleni/Zn 1 ml/ Insulin Human Regular 20 unit/ Total Parenteral Nutrition/Amino Acids/Dextrose/ Fat Emulsion Intravenous 1,920 ml @ 80 mls/hr TPN CONT IV Last administered on 09/23/19at 21:59; Start 09/23/19 at 22:00; Stop 09/24/19 at 21:59; Status DC Potassium Acetate 60 meq/Magnesium Sulfate 5 meq/ Multivitamins 10 ml/Chromium/ Copper/Manganese/ Seleni/Zn 1 ml/ Insulin Human Regular 30 unit/ Total Parenteral Nutrition/Amino Acids/Dextrose/ Fat Emulsion Intravenous 1,920 ml @ 80 mls/hr TPN CONT IV Last administered on 09/24/19at 21:54; Start 09/24/19 at 22:00; Stop 09/25/19 at 21:59; Status DC Norepinephrine Bitartrate 8 mg/ Dextrose 258 ml @ 13.332 mls/ hr CONT PRN IV PER PROTOCOL Last administered on 09/25/19at 21:46; Start 09/25/19 at 06:30 Albumin Human 500 ml @ 125 mls/hr 1X ONCE IV Last administered on 09/25/19at 08:10; Start 09/25/19 at 08:15; Stop 09/25/19 at 12:14; Status DC Potassium Acetate 40 meq/Magnesium Sulfate 5 meq/ Multivitamins 10 ml/Chromium/ Copper/Manganese/ Seleni/Zn 1 ml/ Insulin Human Regular 30 unit/ Total Parenteral Nutrition/Amino Acids/Dextrose/ Fat Emulsion Intravenous 1,920 ml @ 80 mls/hr TPN CONT IV Last administered on 09/25/19at 22:23; Start 09/25/19 at 22:00; Stop 09/26/19 at 21:59; Status DC Meropenem 1 gm/ Sodium Chloride 100 ml @ 200 mls/hr Q8HRS IV ; Start 09/25/19 at 14:00; Status Cancel Meropenem 1 gm/ Sodium Chloride 100 ml @ 200 mls/hr Q8HRS IV Last administered on 09/25/19at 11:04; Start 09/25/19 at 10:00; Stop 09/25/19 at 13:00; Status DC Meropenem 1 gm/ Sodium Chloride 100 ml @ 200 mls/hr Q12HR IV Last administered on 10/13/19at 08:27; Start 09/25/19 at 21:00; Stop 10/13/19 at 08:56; Status DC Sodium Chloride 1,000 ml @ 1,000 mls/hr 1X ONCE IV Last administered on 09/25/19at 11:06; Start 09/25/19 at 10:45; Stop 09/25/19 at 11:44; Status DC Micafungin Sodium 100 mg/Dextrose 100 ml @ 100 mls/hr Q24H IV Last administered on 10/12/19at 12:34; Start 09/25/19 at 11:00; Stop 10/13/19 at 08:56; Status DC Daptomycin 410 mg/ Sodium Chloride 50 ml @ 100 mls/hr Q24H IV Last administered on 09/27/19at 13:33; Start 09/25/19 at 14:00; Stop 09/28/19 at 08:30; Status DC Midazolam HCl (Versed) 2 mg STK-MED ONCE .ROUTE ; Start 09/25/19 at 14:47; Stop 09/25/19 at 14:48; Status DC Fentanyl Citrate (Fentanyl 2ml Vial) 100 mcg STK-MED ONCE .ROUTE ; Start 09/25/19 at 14:47; Stop 09/25/19 at 14:48; Status DC Flumazenil (Romazicon) 0.5 mg STK-MED ONCE IV ; Start 09/25/19 at 14:48; Stop 09/25/19 at 14:48; Status DC Naloxone HCl (Narcan) 0.4 mg STK-MED ONCE .ROUTE ; Start 09/25/19 at 14:48; Stop 09/25/19 at 14:48; Status DC Lidocaine HCl (Lidocaine 1% 20ml Vial) 20 ml STK-MED ONCE .ROUTE ; Start 09/25/19 at 14:48; Stop 09/25/19 at 14:48; Status DC Midazolam HCl (Versed) 2 mg 1X ONCE IV Last administered on 09/25/19at 15:28; Start 09/25/19 at 15:00; Stop 09/25/19 at 15:01; Status DC Fentanyl Citrate (Fentanyl 2ml Vial) 100 mcg 1X ONCE IV Last administered on 09/25/19at 15:28; Start 09/25/19 at 15:00; Stop 09/25/19 at 15:01; Status DC Lidocaine HCl (Lidocaine 1% 20ml Vial) 20 ml 1X ONCE INJ Last administered on 09/25/19at 15:30; Start 09/25/19 at 15:00; Stop 09/25/19 at 15:01; Status DC Sodium Chloride 1,000 ml @ 100 mls/hr Q10H IV Last administered on 10/04/19at 07:30; Start 09/25/19 at 20:00; Stop 10/04/19 at 11:26; Status DC Sodium Bicarbonate (Sodium Bicarb Adult 8.4% Syr) 50 meq 1X ONCE IV Last administered on 09/25/19at 21:47; Start 09/25/19 at 22:00; Stop 09/25/19 at 22:01; Status DC Potassium Acetate 40 meq/Magnesium Sulfate 5 meq/ Multivitamins 10 ml/Chromium/ Copper/Manganese/ Seleni/Zn 1 ml/ Insulin Human Regular 30 unit/ Total Parenteral Nutrition/Amino Acids/Dextrose/ Fat Emulsion Intravenous 1,920 ml @ 80 mls/hr TPN CONT IV Last administered on 09/26/19at 22:28; Start 09/26/19 at 22 :00; Stop 09/27/19 at 21:59; Status DC Sodium Chloride 500 ml @ 500 mls/hr 1X ONCE IV Last administered on 09/27/19at 06:39; Start 09/27/19 at 06:45; Stop 09/27/19 at 07:44; Status DC Potassium Acetate 40 meq/Magnesium Sulfate 5 meq/ Multivitamins 10 ml/Chromium/ Copper/Manganese/ Seleni/Zn 1 ml/ Insulin Human Regular 30 unit/ Total Parenteral Nutrition/Amino Acids/Dextrose/ Fat Emulsion Intravenous 1,920 ml @ 80 mls/hr TPN CONT IV Last administered on 09/27/19at 22:03; Start 09/27/19 at 22:00; Stop 09/28/19 at 21:59; Status DC Metoprolol Tartrate (Lopressor Vial) 5 mg PRN Q6HRS PRN IVP HYPERTENSION Last administered on 10/06/19at 10:14; Start 09/28/19 at 09:00 Potassium Acetate 40 meq/Magnesium Sulfate 5 meq/ Multivitamins 10 ml/Chromium/ Copper/Manganese/ Seleni/Zn 1 ml/ Insulin Human Regular 30 unit/ Total Parenteral Nutrition/Amino Acids/Dextrose/ Fat Emulsion Intravenous 1,920 ml @ 80 mls/hr TPN CONT IV Last administered on 09/28/19at 21:26; Start 09/28/19 at 22:00; Stop 09/29/19 at 21:59; Status DC Potassium Acetate 40 meq/Magnesium Sulfate 5 meq/ Multivitamins 10 ml/Chromium/ Copper/Manganese/ Seleni/Zn 1 ml/ Insulin Human Regular 30 unit/ Total Parenteral Nutrition/Amino Acids/Dextrose/ Fat Emulsion Intravenous 1,920 ml @ 80 mls/hr TPN CONT IV Last administered on 09/29/19at 23:23; Start 09/29/19 at 22:00; Stop 09/30/19 at 21:59; Status DC Potassium Acetate 40 meq/Magnesium Sulfate 5 meq/ Multivitamins 10 ml/Chromium/ Copper/Manganese/ Seleni/Zn 1 ml/ Insulin Human Regular 30 unit/ Total Parenter al Nutrition/Amino Acids/Dextrose/ Fat Emulsion Intravenous 1,920 ml @ 80 mls/hr TPN CONT IV Last administered on 09/30/19at 21:35; Start 09/30/19 at 22:00; Stop 10/01/19 at 21:59; Status DC Furosemide (Lasix) 20 mg 1X ONCE IVP Last administered on 10/01/19at 06:26; Start 10/01/19 at 06:15; Stop 10/01/19 at 06:16; Status DC Methylprednisolone Sodium Succinate (SOLU-Medrol 125MG VIAL) 125 mg 1X ONCE IV Last administered on 10/01/19at 06:26; Start 10/01/19 at 06:15; Stop 10/01/19 at 06:16; Status DC Albuterol/ Ipratropium (Duoneb) 3 ml Q4HRS NEB Last administered on 10/15/19at 08:50; Start 10/01/19 at 08:00 Fentanyl Citrate 30 ml @ 0 mls/hr CONT PRN IV SEE PROTOCOL Last administered on 10/14/19at 13:54; Start 10/01/19 at 06:00 Propofol 100 ml @ 0 mls/hr CONT PRN IV SEE PROTOCOL Last administered on 10/08/19at 23:50; Start 10/01/19 at 06:00 Fentanyl Citrate (Fentanyl 2ml Vial) 25 mcg PRN Q1HR PRN IV SEE COMMENTS; Start 10/01/19 at 06:00 Fentanyl Citrate (Fentanyl 2ml Vial) 50 mcg PRN Q1HR PRN IV SEE COMMENTS; Start 10/01/19 at 06:00 Chlorhexidine Gluconate (Peridex) 15 ml BID MM ; Start 10/01/19 at 09:00; Stop 10/01/19 at 07:58; Status DC Potassium Acetate 40 meq/Magnesium Sulfate 5 meq/ Multivitamins 10 ml/Chromium/ Copper/Manganese/ Seleni/Zn 1 ml/ Insulin Human Regular 30 unit/ Total Parenteral Nutrition/Amino Acids/Dextrose/ Fat Emulsion Intravenous 1,920 ml @ 80 mls/hr TPN CONT IV Last administered on 10/01/19at 21:19; Start 10/01/19 at 22:00; Stop 10/02/19 at 21:59; Status DC Acetylcysteine (Mucomyst 20% Resp Treatment) 600 mg BID NEB Last administered on 10/07/19at 09:33; Start 10/01/19 at 21:00; Stop 10/07/19 at 10:39; Status DC Magnesium Sulfate 100 ml @ 25 mls/hr 1X ONCE IV Last administered on 10/01/19at 15:48; Start 10/01/19 at 15:45; Stop 10/01/19 at 19:44; Status DC Potassium Acetate 40 meq/Magnesium Sulfate 5 meq/ Multivitamins 10 ml/Chromium/ Copper/Manganese/ Seleni/Zn 1 ml/ Insulin Human Regular 30 unit/ Total Parenteral Nutrition/Amino Acids/Dextrose/ Fat Emulsion Intravenous 1,920 ml @ 80 mls/hr TPN CONT IV Last administered on 10/02/19at 21:35; Start 10/02/19 at 22:00; Stop 10/03/19 at 21:59; Status DC Potassium Chloride/Water 100 ml @ 100 mls/hr Q1H IV Last administered on 10/03/19at 08:31; Start 10/03/19 at 07:00; Stop 10/03/19 at 08:59; Status DC Potassium Acetate 40 meq/Magnesium Sulfate 5 meq/ Multivitamins 10 ml/Chromium/ Copper/Manganese/ Seleni/Zn 1 ml/ Insulin Human Regular 30 unit/ Total Parenteral Nutrition/Amino Acids/Dextrose/ Fat Emulsion Intravenous 1,920 ml @ 80 mls/hr TPN CONT IV Last administered on 10/03/19at 21:54; Start 10/03/19 at 22:00; Stop 10/04/19 at 19:34; Status DC Lidocaine HCl (Buffered Lidocaine 1%) 3 ml STK-MED ONCE .ROUTE ; Start 10/03/19 at 12:14; Stop 10/03/19 at 12:14; Status DC Lidocaine HCl (Buffered Lidocaine 1%) 3 ml 1X ONCE IJ Last administered on 10/03/19at 13:11; Start 10/03/19 at 13:00; Stop 10/03/19 at 13:01; Status DC Magnesium Sulfate 50 ml @ 25 mls/hr 1X ONCE IV ; Start 10/04/19 at 08:15; Stop 10/04/19 at 10:14; Status DC Potassium Acetate 40 meq/Magnesium Sulfate 10 meq/ Multivitamins 10 ml/Chromium/ Copper/Manganese/ Seleni/Zn 1 ml/ Insulin Human Regular 20 unit/ Total Parenteral Nutrition/Amino Acids/Dextrose/ Fat Emulsion Intravenous 1,920 ml @ 80 mls/hr TPN CONT IV Last administered on 10/04/19at 21:32; Start 10/04/19 at 22:00; Stop 10/05/19 at 21:59; Status DC Potassium Chloride/Water 100 ml @ 100 mls/hr Q1H IV Last administered on 10/05/19at 09:12; Start 10/05/19 at 08:00; Stop 10/05/19 at 09:59; Status DC Alteplase, Recombinant (Cathflo For Central Catheter Clearance) 4 mg 1X ONCE INT CAT ; Start 10/05/19 at 09:15; Stop 10/05/19 at 09:16; Status UNV Alteplase, Recombinant (Cathflo For Central Catheter Clearance) 4 mg 1X ONCE INT CAT ; Start 10/05/19 at 09:15; Stop 10/05/19 at 09:16; Status UNV Alteplase, Recombinant (Cathflo For Central Catheter Clearance) 4 mg 1X ONCE INT CAT ; Start 10/05/19 at 09:15; Stop 10/05/19 at 09:16; Status UNV Alteplase, Recombinant 4 mg/ Sodium Chloride 20 ml @ 20 mls/hr 1X ONCE IV Last administered on 10/05/19at 10:10; Start 10/05/19 at 10:00; Stop 10/05/19 at 10:59; Status DC Alteplase, Recombinant 4 mg/ Sodium Chloride 20 ml @ 20 mls/hr 1X ONCE IV Last administered on 10/05/19at 10:09; Start 10/05/19 at 10:00; Stop 10/05/19 at 10:59; Status DC Alteplase, Recombinant 4 mg/ Sodium Chloride 20 ml @ 20 mls/hr 1X ONCE IV Last administered on 10/05/19at 10:09; Start 10/05/19 at 10:00; Stop 10/05/19 at 10:59; Status DC Potassium Acetate 60 meq/Magnesium Sulfate 10 meq/ Multivitamins 10 ml/Chromium/ Copper/Manganese/ Seleni/Zn 1 ml/ Insulin Human Regular 20 unit/ Total Parenteral Nutrition/Amino Acids/Dextrose/ Fat Emulsion Intravenous 1,920 ml @ 80 mls/hr TPN CONT IV Last administered on 10/05/19at 21:55; Start 10/05/19 at 22:00; Stop 10/06/19 at 21:59; Status DC Albumin Human 500 ml @ 125 mls/hr 1X ONCE IV Last administered on 10/06/19at 12:01; Start 10/06/19 at 11:15; Stop 10/06/19 at 15:14; Status DC Sodium Chloride 500 ml @ 500 mls/hr 1X ONCE IV Last administered on 10/06/19at 13:50; Start 10/06/19 at 11:15; Stop 10/06/19 at 12:14; Status DC Potassium Acetate 60 meq/Magnesium Sulfate 14 meq/ Multivitamins 10 ml/Chromium/ Copper/Manganese/ Seleni/Zn 1 ml/ Insulin Human Regular 20 unit/ Total Parenteral Nutrition/Amino Acids/Dextrose/ Fat Emulsion Intravenous 1,920 ml @ 80 mls/hr TPN CONT IV Last administered on 10/06/19at 22:26; Start 10/06/19 at 22:00; Stop 10/07/19 at 21:59; Status DC Ciprofloxacin/ Dextrose 200 ml @ 200 mls/hr Q12HR IV Last administered on 10/13/19at 08:27; Start 10/06/19 at 21:00; Stop 10/13/19 at 08:56; Status DC Albumin Human 250 ml @ 62.5 mls/hr 1X ONCE IV Last administered on 10/07/19at 11:09; Start 10/07/19 at 11:00; Stop 10/07/19 at 14:59; Status DC Furosemide (Lasix) 20 mg 1X ONCE IVP Last administered on 10/07/19at 14:52; Start 10/07/19 at 10:45; Stop 10/07/19 at 10:49; Status DC Potassium Acetate 60 meq/Magnesium Sulfate 14 meq/ Multivitamins 10 ml/Chromium/ Copper/Manganese/ Seleni/Zn 1 ml/ Insulin Human Regular 15 unit/ Total Parent eral Nutrition/Amino Acids/Dextrose/ Fat Emulsion Intravenous 1,920 ml @ 80 mls/hr TPN CONT IV Last administered on 10/07/19at 22:08; Start 10/07/19 at 22:00; Stop 10/08/19 at 21:59; Status DC Potassium Acetate 60 meq/Magnesium Sulfate 14 meq/ Multivitamins 10 ml/Chromium/ Copper/Manganese/ Seleni/Zn 1 ml/ Insulin Human Regular 15 unit/ Total Parenteral Nutrition/Amino Acids/Dextrose/ Fat Emulsion Intravenous 1,920 ml @ 80 mls/hr TPN CONT IV Last administered on 10/08/19at 22:12; Start 10/08/19 at 22:00; Stop 10/09/19 at 21:59; Status DC Potassium Acetate 60 meq/Magnesium Sulfate 14 meq/ Multivitamins 10 ml/Chromium/ Copper/Manganese/ Seleni/Zn 1 ml/ Insulin Human Regular 15 unit/ Total Parenteral Nutrition/Amino Acids/Dextrose/ Fat Emulsion Intravenous 1,920 ml @ 80 mls/hr TPN CONT IV Last administered on 10/09/19at 22:22; Start 10/09/19 at 22:00; Stop 10/10/19 at 21:59; Status DC Furosemide (Lasix) 20 mg 1X ONCE IVP Last administered on 10/10/19at 11:07; Start 10/10/19 at 10:30; Stop 10/10/19 at 10:34; Status DC Potassium Acetate 60 meq/Magnesium Sulfate 14 meq/ Multivitamins 10 ml/Chromium/ Copper/Manganese/ Seleni/Zn 1 ml/ Insulin Human Regular 15 unit/ Sodium Chloride 20 meq/Total Parenteral Nutrition/Amino Acids/Dextrose/ Fat Emulsion Intravenous 1,920 ml @ 80 mls/hr TPN CONT IV Last administered on 10/10/19at 21:54; Start 10/10/19 at 22:00; Stop 10/11/19 at 21:59; Status DC Potassium Acetate 30 meq/Magnesium Sulfate 14 meq/ Multivitamins 10 ml/Chromium/ Copper/Manganese/ Seleni/Zn 1 ml/ Insulin Human Regular 15 unit/ Sodium Chloride 20 meq/Potassium Chloride 30 meq/ Total Parenteral Nutrition/Amino Acids/Dextrose/ Fat Emulsion Intravenous 1,920 ml @ 80 mls/hr TPN CONT IV Last administered on 10/11/19at 21:46; Start 10/11/19 at 22:00; Stop 10/12/19 at 21:59; Status DC Sodium Chloride 80 meq/Potassium Chloride 30 meq/ Potassium Acetate 30 meq/Magnesium Sulfate 14 meq/ Multivitamins 10 ml/Chromium/ Copper/Manganese/ Seleni/Zn 1 ml/ Insulin Human Regular 15 unit/ Total Parenteral Nutrition/Amino Acids/Dextrose/ Fat Emulsion Intravenous 1,920 ml @ 80 mls/hr TPN CONT IV Last administered on 10/12/19at 22:33; Start 10/12/19 at 22:00; Stop 10/13/19 at 21:59; Status DC Furosemide (Lasix) 40 mg 1X ONCE IVP Last administered on 10/12/19at 16:27; Start 10/12/19 at 15:30; Stop 10/12/19 at 15:33; Status DC Albumin Human 250 ml @ 62.5 mls/hr 1X ONCE IV Last administered on 10/12/19at 16:27; Start 10/12/19 at 15:30; Stop 10/12/19 at 19:29; Status DC Sodium Chloride 80 meq/Potassium Chloride 30 meq/ Potassium Acetate 30 meq/Magnesium Sulfate 14 meq/ Multivitamins 10 ml/Chromium/ Copper/Manganese/ Seleni/Zn 1 ml/ Insulin Human Regular 15 unit/ Total Parenteral Nutrition/Amino Acids/Dextrose/ Fat Emulsion Intravenous 1,920 ml @ 80 mls/hr TPN CONT IV Last administered on 10/13/19at 22:25; Start 10/13/19 at 22:00; Stop 10/14/19 at 21:59; Status DC Sodium Chloride 80 meq/Potassium Chloride 30 meq/ Potassium Acetate 30 meq/Magnesium Sulfate 14 meq/ Multivitamins 10 ml/Chromium/ Copper/Manganese/ Seleni/Zn 1 ml/ Insulin Human Regular 15 unit/ Total Parenteral Nutrition/Amino Acids/Dextrose/ Fat Emulsion Intravenous 1,920 ml @ 80 mls/hr TPN CONT IV Last administered on 10/14/19at 21:32; Start 10/14/19 at 22:00; Stop 10/15/19 at 21:59 Sodium Chloride 80 meq/Potassium Chloride 30 meq/ Potassium Acetate 30 meq/Magnesium Sulfate 14 meq/ Multivitamins 10 ml/Chromium/ Copper/Manganese/ S thien/Zn 1 ml/ Insulin Human Regular 15 unit/ Total Parenteral Nutrition/Amino Acids/Dextrose/ Fat Emulsion Intravenous 1,920 ml @ 80 mls/hr TPN CONT IV ; Start 10/15/19 at 22:00; Stop 10/16/19 at 21:59 Active Scripts Active Reported Bisoprolol Fumarate 5 Mg Tablet 10 Mg PO DAILY Vitals/I & O Vital Sign - Last 24 Hours 10/14/19 10/14/19 10/14/19 10/14/19 12:00 12:48 13:54 14:24 Temp 98.4 98.4 Pulse 124 Resp 28 B/P (MAP) 106/70 (82) Pulse Ox 100 92 92 92 O2 Delivery Tracheal Collar Tracheal Collar O2 Flow Rate 8.0 8.0 8.0 10/14/19 10/14/19 10/14/19 10/14/19 15:00 16:51 17:00 18:30 Pulse 120 120 Resp 22 B/P (MAP) 114/64 (81) 121/73 (89) Pulse Ox 100 92 100 O2 Delivery Tracheal Collar Tracheal Collar Tracheal Collar O2 Flow Rate 8.0 10/14/19 10/14/19 10/14/19 10/14/19 19:54 20:00 20:00 23:47 Temp 99.6 99.6 Pulse 122 Resp 22 B/P (MAP) 115/71 (86) Pulse Ox 100 99 100 O2 Delivery Tracheal Collar Trach Collar Tracheal Collar Tracheal Collar O2 Flow Rate 8.0 8.0 10/15/19 10/15/19 10/15/19 10/15/19 00:00 04:00 04:42 08:00 Temp 99.5 98.4 99.5 98.4 Pulse 110 110 Resp 16 24 B/P (MAP) 107/71 (83) 106/65 (79) Pulse Ox 100 98 100 O2 Delivery Tracheal Collar Tracheal Collar Tracheal Collar Trach Collar O2 Flow Rate 8.0 10/15/19 10/15/19 08:00 08:58 Temp 98.6 98.6 Pulse 116 Resp 26 B/P (MAP) 122/67 (85) Pulse Ox 99 100 O2 Delivery Tracheal Collar Tracheal Collar O2 Flow Rate 8.0 Intake and Output 10/14/19 10/14/19 10/15/19 15:00 23:00 07:00 Intake Total 19.5 ml Output Total 650 ml 185 ml 870 ml Balance -650 ml -165.5 ml -870 ml Hemodynamically unstable?: No Is patient in severe pain?: No Is NPO status required?: No NIELS MCGILL MD Oct 15, 2019 10:31
[2019-10-15] MEDS: PROCHLORPERAZINE 10 MG/2 ML VIAL. IV PRN (10:53)
--- NOTE | 2019-10-15 10:55 | PDOC ---
PULMONARY PROGRESS NOTES Subjective Sleeping laying in bed, remains on trach shield, chest tube draining yellow fluid, nursing reports clot in chest tube this am 80cc/ 24 hours Patient intubated on 07/10 , s/p trach 07/24, Vitals Vital Signs Date Time Temp Pulse Resp B/P (MAP) Pulse Ox O2 Delivery O2 Flow Rate FiO2 10/15/19 08:58 100 Tracheal Collar 8.0 10/15/19 08:00 98.6 116 26 122/67 (85) 98.6 ROS: No Nausea, No Chest Pain, No Abdominal Pain General: Alert, No acute distress HEENT: Other (nc at perrl nose clear neck trach site ok no lab no thyromegaly) Lungs: Other (diminshed in bases, Rhonci in LLL) Cardiovascular: S1, S2 Abdomen: Soft, Non-tender, Other (bleeding from Sx. site RLQ and firmness) Extremities: Other (+1 BLE edema) Skin: Warm, Dry Labs Laboratory Tests Test 10/13/19 12:50 10/13/19 17:39 10/14/19 00:23 10/14/19 05:12 Glucose (Fingerstick) 150 mg/dL (70-99) 139 mg/dL (70-99) 138 mg/dL (70-99) 125 mg/dL (70-99) Test 10/14/19 05:15 10/14/19 13:10 10/14/19 17:54 10/15/19 00:20 White Blood Count 10.9 x10^3/uL (4.0-11.0) Red Blood Count 3.01 x10^6/uL (3.50-5.40) Hemoglobin 8.6 g/dL (12.0-15.5) Hematocrit 25.5 % (36.0-47.0) Mean Corpuscular Volume 85 fL (79-100) Mean Corpuscular Hemoglobin 29 pg (25-35) Mean Corpuscular Hemoglobin Concent 34 g/dL (31-37) Red Cell Distribution Width 18.1 % (11.5-14.5) Platelet Count 380 x10^3/uL (140-400) Neutrophils (%) (Auto) 78 % (31-73) Lymphocytes (%) (Auto) 12 % (24-48) Monocytes (%) (Auto) 7 % (0-9) Eosinophils (%) (Auto) 2 % (0-3) Basophils (%) (Auto) 0 % (0-3) Neutrophils # (Auto) 8.5 x10^3/uL (1.8-7.7) Lymphocytes # (Auto) 1.3 x10^3/uL (1.0-4.8) Monocytes # (Auto) 0.8 x10^3/uL (0.0-1.1) Eosinophils # (Auto) 0.2 x10^3/uL (0.0-0.7) Basophils # (Auto) 0.0 x10^3/uL (0.0-0.2) Sodium Level 137 mmol/L (136-145) Potassium Level 4.1 mmol/L (3.5-5.1) Chloride Level 101 mmol/L (98-107) Carbon Dioxide Level 36 mmol/L (21-32) Anion Gap 0 (6-14) Blood Urea Nitrogen 15 mg/dL (7-20) Creatinine 0.6 mg/dL (0.6-1.0) Estimated GFR (Cockcroft-Gault) 106.3 BUN/Creatinine Ratio 25 (6-20) Glucose Level 126 mg/dL (70-99) Calcium Level 10.4 mg/dL (8.5-10.1) Phosphorus Level 4.4 mg/dL (2.6-4.7) Magnesium Level 2.1 mg/dL (1.8-2.4) Total Bilirubin 0.5 mg/dL (0.2-1.0) Aspartate Amino Transf (AST/SGOT) 19 U/L (15-37) Alanine Aminotransferase (ALT/SGPT) 14 U/L (14-59) Alkaline Phosphatase 161 U/L (46-116) Total Protein 4.6 g/dL (6.4-8.2) Albumin 1.1 g/dL (3.4-5.0) Albumin/Globulin Ratio 0.3 (1.0-1.7) Glucose (Fingerstick) 134 mg/dL (70-99) 117 mg/dL (70-99) 143 mg/dL (70-99) Test 10/15/19 06:07 Glucose (Fingerstick) 134 mg/dL (70-99) Laboratory Tests Test 10/14/19 13:10 10/14/19 17:54 10/15/19 00:20 10/15/19 06:07 Glucose (Fingerstick) 134 mg/dL (70-99) 117 mg/dL (70-99) 143 mg/dL (70-99) 134 mg/dL (70-99) Medications Active Scripts Medications Dose Route/Sig Max Daily Dose Days Date Category Bisoprolol Fumarate 5 Mg Tablet 10 Mg PO DAILY 07/04/19 Reported Comments CXR 10/09 poor insp effort/ increase effusion ct abdomen /pelvis 09/23 1. Removal of the percutaneous pigtail drainage catheters since the prior exam. Sequela of pancreatitis with extensive pseudocysts again demonstrated, the right-sided collections are slightly larger since the prior exam, the left-sided collections are stable. See above. 2. Moderate to large left pleural effusion with atelectasis and collapse of most of the left lower lobe, stable. Small right pleural effusion is stable. 3. Gallstone. ct chest 10/02 reviewed GRAM NEG COCCOBACILLI:MANY SQUAMOUS EPI CELL:RARE PMN (WBCs):FEW Unless otherwise specified, Testing Performed by: [address] [address] For Inquires, the Physician may contact the Microbiology department at [phone] RESPIRATORY CULTURE Final Final MANY GRAM NEGATIVE RODS on 10/03/19 at 1107 FINAL ID= [PSEUDOMONAS [email or web address]] MICRO CHARGES PSEUDOMONAS AERUGINOSA ANTIMICROBIAL SUSCEPTIBILITY Final Comment NEG ALEXANDRA 56 PSEUDOMONAS AERUGINOSA ANTIBIOTIC RESULT INTERPRETATION AMIKACIN <=16 S AZTREONAM <=4 S CEFTAZIDIME <=1 S CIPROFLOXACIN <=0.25 S CEFEPIME <=2 S CEFTAZIDIME/AVIBACTAM <=4 S GENTAMICIN <=2 S LEVOFLOXACIN <=0.5 S Impression . IMPRESSION: 1. Acute hypoxemic respiratory failure secondary to ARDS status post trach, developed anemia /7, blood drainage from RLQ abdomen drain site, and surrounding firmness / developed septic shock /7 from abdomen source, required levo 6/7 s/p 3 new drains /7 with brown color drainage, on/off vent , on TS now 2. Gallstone pancreatitis, now with ongoing bleeding from prior drain. Anemic. s/p Tx multiple units over several days 3. septic shock/sepsis, recurrent 09/24, source abdomen. , off levo now, 4. Acute kidney injury-, Off HD--renal function decling. suspect JUANA on CKD due to hypotension , improved now 5. Acute gallstone pancreatitis. 6. Hypoalbuminemia. 7. Moderate persistent effusions, s/p left thora 08/29, reaccumulation of left effusion. O2 requirement not changed. 8. Fever- ,hypotension. suspect recurrent sepsis/ likely pancreatic source. Per ID, per surgery-- 9. Chronic anemia-- ongoing / s/p PRBC 10. Covid 19 testing negative 11. Moderate to large ascites-S/P paracentisis 12.S/P paracentisis with 4 liters removed on 08/03/19 13. S/P IR drain placement on 08/26/2019, removal, re inserted 09/24 14. Depression/Anxiety 15. Increase effusion, ? loculated/ s/p chest tube.. drainage slowing down. 200 cc /24 hr Plan . 1. TS as tolerated titrate fio2 to keep sat 94%, off vent 2. Follow all cultures/ PSA from pelvic drains. Abx per ID/ thoracentesis result transudate, await c/s, 3. Follow surgery recs-- Acute pancreatitis with persistent necrosis ---- 08/14 status post KAYLIN drain placement + C paropsilosis; 08/23 + yeast & high amylase; s/p additional drains on 08/25, removal of drains and now increase pseudocyst and increase fluid collection. likely infected fluid/ sepsis. on BS abx.follow s urgery rec, planning surgical intervention Thursday 4. Follow ID recs for ABX---- 5. Follow nephrology recs ----- 6. Continue TPN 7. monitor HGB, 4 units since 09/23--monitor HGB transfuse if less than 8.5 8 s/p thoracentesis, 08/29, 3 litres removed, s/p ct on 10/02. ct drainage, 180 cc over the past 24 hrs, suction -40, am cxr, flushed chest tube 10/09 9. Pt remains critically ill from severe necrotic pancreatis. Even with surgery prognosis grim. Surgery informed family. 10. lasix/albumin prn 11. sputum gram neg cocobacilli. anna sensitive DVT/GI PPX: protonix--- PT/OT D/W RN, RT CC time 30 minutes HARMEET BEE MD Oct 15, 2019 10:55
[2019-10-15 12:00] VITALS: BP 118/84
[2019-10-15] MEDS: ACETYLCYSTEINE 20% for RESP TX 600 MG/3 ML. NEB SCH ×2 (12:00→19:40)
[2019-10-15 12:19] LABS: BASE EXCESS ABG 8 mmol/L (-3-3); HCO3 ABG 34 mmol/L (21-28); PCO2 ABG 54 mmHg (35-46); PO2 ABG 79 mmHg (75-108); SAT O2 ABG 95 % (92-99)
[2019-10-15 12:23] LABS: FIO2 ABG 33
[2019-10-15 16:00] VITALS: BP 110/64
--- NOTE | 2019-10-15 16:29 | NUR ---
Patient had an increase in emesis while laying flat this morning between [id number], zofran and compazine given without relief. NG connected to suction with some improvement, trach care completed and patient suctioned well, continues to cough up green bile out of MD iain aware. Patient transferred to the chair with PT/OT and this RN. Patient able to bear weight better than previously. Chest tube dressing and right and left KAYLIN dressings changed while up in chair. After transferring and changing dressings, patient became tachycardic (140s-160s) and tachypneic breathing shallow breaths, patient reminded to turn, cough, and deep breathe and slow breathing down. Patient then became increasingly more confused saying she "had to leave this club and go back to her apartment" and forgetting family members names and was unable to be reoriented that this was a hospital and she has been a patient for over three months. Jamaal, patient's boyfriend, was then facetimed by this RN to attempt to re-orient with little success. ABG and glucose within normal limits. Patient had slight fever of 100.2, patient cooled off with cool wash cloths and a fan. Patient transferred back to bed. Immediately upon transfer back to bed, patient began vomiting green bile again. Zofran given and NG reconnected quickly to suction. Ativan was given thinking nausea/vomiting might be from anxiety and confusion, patient began to relax, HR improved dramatically to 110s/120s, family then at bedside to help re-orient. Will continue to monitor closely.
[2019-10-15 20:00] VITALS: BP 99/57
[2019-10-15] MEDS ORDERED: AMINO ACID IV SCH ×10 (22:00)
[2019-10-15] MEDS ORDERED: TOTAL PARENTERAL NUTRITION IV SCH ×10 (22:00)
[2019-10-15] MEDS ORDERED: DEXTROSE 70% IV SCH ×10 (22:00)
[2019-10-15] MEDS ORDERED: [UNRECOGNIZED DRUG - OTHER] IV SCH ×10 (22:00)
[2019-10-16] VITALS (18 sets, daily range): BP systolic 99–138; BP diastolic 58–86
[2019-10-16] MEDS: IPRATRPIUM/ALBUTEROL 0.5/2.5MG 3 ML NEBU. NEB SCH ×5 (04:40→19:40)
[2019-10-16] MEDS: INSULIN LISPRO 300 UNITS/3 ML VIAL. SQ SCH ×4 (06:00→17:25)
--- NOTE | 2019-10-16 07:57 | PDOC ---
Infectious Disease Note Subjective: Subjective Patient is alert but confused Discussed with RN Had hallucinations last night No fevers last 24 hours Remains on trach collar Vital Signs: Vital Signs Vital Signs Date Time Temp Pulse Resp B/P (MAP) Pulse Ox O2 Delivery O2 Flow Rate FiO2 10/16/19 07:31 Trach Collar 10/16/19 05:05 100 8.0 10/16/19 04:00 99.2 109 20 112/66 (81) 99.2 Physical Exam: PHYSICAL EXAM GENERAL: Patient alert awake comfortable HEENT: Anicteric, no thrush, NG tube in place NECK: Tracheostomy LUNGS: Diminished aeration bases, no accessory muscle use - CT on left HEART: S1, S2,regular ABDOMEN: Mild distention, bowel sounds present, soft, grimaces to palpation, drains x 3 : Lind ( 09/24) EXTREMITIES: + edema BLE SKIN: no signs of gen rash LUE-PICC without signs of complications Medications: Inpatient Meds: Current Medications Medications (Trade) Dose Ordered Sig/Yvon Start Time Stop Time Status Last Admin Dose Admin Acetaminophen (Tylenol Supp) 650 mg PRN Q6HRS PRN 07/12/19 10:30 10/06/19 10:16 650 MG Acetaminophen (Tylenol) 650 mg PRN Q6HRS PRN 07/09/19 03:36 08/31/19 10:25 DC 08/04/19 19:56 650 MG Acetylcysteine (Mucomyst 20% Resp Treatment) 600 mg RTBID 10/15/19 12:00 10/15/19 19:40 600 MG Albumin Human 250 ml @ 62.5 mls/hr 1X ONCE 10/12/19 15:30 10/12/19 19:29 DC 10/12/19 16:27 62.5 MLS/HR Albuterol Sulfate (Ventolin Neb Soln) 2.5 mg 1X ONCE 07/05/19 22:30 07/05/19 22:31 DC 07/06/19 00:56 2.5 MG Albuterol/ Ipratropium (Duoneb) 3 ml Q4HRS 10/01/19 08:00 10/16/19 04:40 3 ML Alteplase, Recombinant (Cathflo For Central Catheter Clearance) 4 mg 1X ONCE 10/05/19 09:15 6/17/20 09:16 UNV Alteplase, Recombinant 4 mg/ Sodium Chloride 20 ml @ 20 mls/hr 1X ONCE 10/05/19 10:00 10/05/19 10:59 DC 10/05/19 10:09 20 MLS/HR Amino Acids/ Glycerin/ Electrolytes 1,000 ml @ 75 mls/hr [id number] 08/08/19 21:15 UNV Artificial Tears (Artificial Tears) 1 drop PRN Q15MIN PRN 08/17/19 05:30 10/11/19 21:17 1 DROP Atenolol (Tenormin) 100 mg DAILY 07/05/19 09:00 07/04/19 20:08 DC Atropine Sulfate (ATROPINE 0.5mg SYRINGE) 0.5 mg PRN Q5MIN PRN 07/21/19 08:15 Barium Sulfate (Varibar Thin Liquid Apple) 148 gm 1X ONCE 09/13/19 11:45 09/13/19 11:49 DC Benzocaine (Hurricaine One) 1 spray 1X ONCE 07/08/19 14:30 07/08/19 14:31 DC 07/08/19 16:38 1 SPRAY Bisacodyl (Dulcolax Supp) 10 mg STK-MED ONCE 08/15/19 10:59 08/15/19 10:59 DC Bumetanide (Bumex) 2 mg DAILY 08/26/19 10:00 09/05/19 17:15 DC 09/05/19 08:07 2 MG Bupivacaine HCl/ Epinephrine Bitart (Sensorcain-Epi 0.5%-1:504407 Mpf) 30 ml STK-MED ONCE 08/15/19 10:58 08/15/19 10:58 DC 08/15/19 12:01 7 ML Calcium Carbonate/ Glycine (Tums) 500 mg PRN AFTMEALHC PRN 07/06/19 17:45 08/31/19 10:25 DC Calcium Chloride 1000 mg/Sodium Chloride 110 ml @ 220 mls/hr 1X ONCE 07/05/19 22:30 07/05/19 22:59 DC 07/05/19 22:11 220 MLS/HR Calcium Chloride 3000 mg/Sodium Chloride 1,030 ml @ 50 mls/hr [id number] 07/07/19 08:00 07/09/19 15:23 DC 07/09/19 02:17 50 MLS/HR Calcium Gluconate (Calcium Gluconate) 2,000 mg 1X ONCE 07/07/19 02:15 07/07/19 02:16 DC 07/07/19 02:19 2,000 MG Calcium Gluconate 1000 mg/Sodium Chloride 110 ml @ 220 mls/hr 1X ONCE 07/06/19 03:30 07/06/19 03:59 DC 07/06/19 03:21 220 MLS/HR Calcium Gluconate 2000 mg/Sodium Chloride 120 ml @ 220 mls/hr 1X ONCE 07/06/19 07:30 07/06/19 08:02 DC 07/06/19 09:05 220 MLS/HR Cefepime HCl (Maxipime) 2 gm Q12HR 07/13/19 09:00 07/27/19 09:58 DC 07/26/19 20:56 2 GM Cellulose (Surgicel Fibrillar 1x2) 1 each STK-MED ONCE 07/25/19 11:00 07/25/19 11:01 DC Cellulose (Surgicel Hemostat 2x14) 1 each STK-MED ONCE 08/15/19 10:58 08/15/19 10:59 DC Cellulose (Surgicel Hemostat 4x8) 1 each STK-MED ONCE 08/15/19 10:58 08/15/19 10:59 DC Chlorhexidine Gluconate (Peridex) 15 ml BID 10/01/19 09:00 10/01/19 07:58 DC Ciprofloxacin/ Dextrose 200 ml @ 200 mls/hr Q12HR 10/06/19 21:00 10/13/19 08:56 DC 10/13/19 08:27 200 MLS/HR Cyclobenzaprine HCl (Flexeril) 10 mg PRN Q6HRS PRN 08/18/19 10:45 Daptomycin 410 mg/ Sodium Chloride 50 ml @ 100 mls/hr Q24H 09/25/19 14:00 09/28/19 08:30 DC 09/27/19 13:33 100 MLS/HR Daptomycin 430 mg/ Sodium Chloride 50 ml @ 100 mls/hr Q24H 08/13/19 13:00 08/18/19 20:58 DC 08/18/19 13:00 100 MLS/HR Daptomycin 450 mg/ Sodium Chloride 50 ml @ 100 mls/hr Q24H 09/04/19 09:00 09/08/19 08:30 DC 09/07/19 09:25 100 MLS/HR Daptomycin 485 mg/ Sodium Chloride 50 ml @ 100 mls/hr Q24H 08/22/19 11:00 08/30/19 07:44 DC 08/29/19 13:10 100 MLS/HR Daptomycin 500 mg/ Sodium Chloride 50 ml @ 100 mls/hr Q48H 07/13/19 08:30 07/29/19 10:07 DC 07/29/19 09:57 100 MLS/HR Dexamethasone Sodium Phosphate (Decadron) 4 mg STK-MED ONCE 08/15/19 10:56 08/15/19 10:57 DC Dexmedetomidine HCl 400 mcg/ Sodium Chloride 100 ml @ 0 mls/hr CONT PRN 07/21/19 08:15 09/17/19 18:31 DC 09/17/19 12:57 8 MLS/HR Dextrose (Dextrose 50%-Water Syringe) 12.5 gm PRN Q15MIN PRN 07/04/19 09:30 Digoxin (Lanoxin) 125 mcg 1X ONCE 07/07/19 18:00 07/07/19 18:01 DC 07/07/19 17:10 125 MCG Diphenhydramine HCl (Benadryl) 25 mg 1X PRN PRN 08/12/19 15:45 08/13/19 15:44 DC Duloxetine HCl (Cymbalta) 30 mg DAILY 08/28/19 14:00 08/31/19 10:25 DC 08/29/19 09:48 30 MG Enoxaparin Sodium (Lovenox 100mg Syringe) 100 mg Q12HR 08/09/19 21:00 UNV Enoxaparin Sodium (Lovenox 40mg Syringe) 40 mg Q24H 09/04/19 17:00 09/25/19 06:50 DC 09/23/19 17:44 40 MG Etomidate (Amidate) 8 mg 1X ONCE 07/11/19 08:30 07/11/19 08:31 DC 07/11/19 08:33 8 MG Fentanyl (Duragesic 50mcg/ Hr Patch) 1 patch Q72H 09/22/19 21:00 10/01/19 12:00 DC 09/22/19 21:22 1 PATCH Fentanyl Citrate (Fentanyl 2ml Vial) 50 mcg PRN Q1HR PRN 10/01/19 06:00 Fentanyl Citrate (Fentanyl 5ml Vial) 250 mcg 1X ONCE 08/26/19 09:15 08/26/19 09:16 DC 08/26/19 09:30 50 MCG Flumazenil (Romazicon) 0.5 mg STK-MED ONCE 09/25/19 14:48 09/25/19 14:48 DC Fluoxetine HCl (PROzac) 20 mg QHS 09/22/19 21:00 10/15/19 21:52 20 MG Furosemide (Lasix) 40 mg 1X ONCE 10/12/19 15:30 10/12/19 15:33 DC 10/12/19 16:27 40 MG Haloperidol Lactate (Haldol Inj) 3 mg 1X ONCE 08/22/19 14:30 08/22/19 14:31 DC 08/22/19 14:37 3 MG Heparin Sodium (Porcine) (Hep Lock Adult) 500 unit STK-MED ONCE 07/26/19 09:29 07/26/19 09:30 DC Heparin Sodium (Porcine) (Heparin Sodium) 5,000 unit Q12HR 08/15/19 21:00 08/25/19 09:59 DC 08/24/19 20:57 5,000 UNIT Heparin Sodium (Porcine) 1000 unit/Sodium Chloride 1,001 ml @ 1,001 mls/hr 1X ONCE 08/15/19 12:00 08/15/19 12:59 DC Hydromorphone HCl (Dilaudid Standard [employer]) 12 mg STK-MED ONCE 08/19/19 15:50 08/30/19 11:24 DC Hydromorphone HCl (Dilaudid) 1 mg PRN Q4HRS PRN 08/22/19 19:00 09/05/19 17:10 DC 09/05/19 06:25 1 MG Info (CONTRAST GIVEN -- Rx MONITORING) 1 each PRN DAILY PRN 07/18/19 11:45 07/20/19 11:44 DC Info (Icu Electrolyte Protocol) 1 ea CONT PRN PRN 07/17/19 13:15 Info (PHARMACY MONITORING -- do not chart) 1 each PRN DAILY PRN 08/12/19 15:45 09/13/19 14:14 DC Info (Tpn Per Pharmacy) 1 each PRN DAILY PRN 07/06/19 12:30 UNV Insulin Human Lispro (HumaLOG) 0-9 UNITS Q6HRS 07/04/19 09:30 10/12/19 18:05 4 UNITS Insulin Human Regular (HumuLIN R VIAL) 5 unit 1X ONCE 07/05/19 22:30 07/05/19 22:31 DC 07/05/19 22:14 5 UNIT Iohexol (Omnipaque 240 Mg/ml) 30 ml 1X ONCE 07/18/19 11:30 07/18/19 11:33 DC 07/18/19 11:30 30 ML Iohexol (Omnipaque 300 Mg/ml) 50 ml STK-MED ONCE 08/15/19 10:58 08/15/19 10:59 DC Iohexol (Omnipaque 350 Mg/ml) 90 ml 1X ONCE 07/04/19 03:30 07/04/19 03:31 DC 07/04/19 03:25 90 ML Ketorolac Tromethamine (Toradol 30mg Vial) 30 mg 1X ONCE 07/04/19 03:00 07/04/19 03:01 DC 07/04/19 02:54 30 MG Lidocaine HCl (Buffered Lidocaine 1%) 3 ml 1X ONCE 10/03/19 13:00 10/03/19 13:01 DC 10/03/19 13:11 12 ML Lidocaine HCl (Glydo (Lidocaine) Jelly) 1 ramu 1X ONCE 07/08/19 14:30 07/08/19 14:31 DC 07/08/19 16:38 1 RAMU Lidocaine HCl (Lidocaine 1% 20ml Vial) 20 ml 1X ONCE 09/25/19 15:00 09/25/19 15:01 DC 09/25/19 15:30 20 ML Lidocaine HCl (Xylocaine-Mpf 1% 2ml Vial) 2 ml PRN 1X PRN 08/15/19 07:00 08/16/19 06:59 DC Linezolid/Dextrose 300 ml @ 300 mls/hr Q12HR 09/04/19 09:00 09/07/19 08:11 DC 09/06/19 21:08 300 MLS/HR Lorazepam (Ativan Inj) 0.25 mg PRN Q4HRS PRN 09/21/19 07:30 10/15/19 13:37 0.25 MG Magnesium Sulfate 50 ml @ 25 mls/hr 1X ONCE 10/04/19 08:15 10/04/19 10:14 DC Meropenem 1 gm/ Sodium Chloride 100 ml @ 200 mls/hr Q12HR 09/25/19 21:00 10/13/19 08:56 DC 10/13/19 08:27 200 MLS/HR Meropenem 500 mg/ Sodium Chloride 50 ml @ 100 mls/hr Q6HRS 09/12/19 18:00 09/14/19 09:59 DC 09/14/19 06:02 100 MLS/HR Methylprednisolone Sodium Succinate (SOLU-Medrol 125MG VIAL) 125 mg 1X ONCE 10/01/19 06:15 10/01/19 06:16 DC 10/01/19 06:26 125 MG Metoclopramide HCl (Reglan Vial) 10 mg PRN Q3HRS PRN 08/27/19 16:45 09/01/19 04:25 10 MG Metoprolol Tartrate (Lopressor Vial) 5 mg PRN Q6HRS PRN 09/28/19 09:00 10/06/19 10:14 5 MG Metronidazole 100 ml @ 100 mls/hr Q8HRS 08/02/19 10:00 08/09/19 08:10 DC 08/09/19 06:04 100 MLS/HR Micafungin Sodium 100 mg/Dextrose 100 ml @ 100 mls/hr Q24H 09/25/19 11:00 10/13/19 08:56 DC 10/12/19 12:34 100 MLS/HR Midazolam HCl (Versed) 2 mg 1X ONCE 09/25/19 15:00 09/25/19 15:01 DC 09/25/19 15:28 1 MG Midazolam HCl 100 mg/Sodium Chloride 100 ml @ 7 mls/hr CONT PRN 07/16/19 16:00 09/21/19 14:38 DC 07/27/19 15:35 7 MLS/HR Midazolam HCl 50 mg/Sodium Chloride 50 ml @ 0 mls/hr CONT PRN 07/11/19 08:15 07/16/19 15:59 DC 07/14/19 22:39 7 MLS/HR Morphine Sulfate (Morphine Sulfate) 2 mg PRN Q2HR PRN 07/04/19 05:00 07/05/19 14:15 DC 07/05/19 12:26 2 MG Multi-Ingred Cream/Lotion/Oil/ Oint (Artificial Tears Eye Ointment) 1 ramu PRN Q1HR PRN 07/13/19 17:30 09/21/19 14:39 DC 08/01/19 08:19 1 RAMU Naloxone HCl (Narcan) 0.4 mg STK-MED ONCE 09/25/19 14:48 09/25/19 14:48 DC Norepinephrine Bitartrate 8 mg/ Dextrose 258 ml @ 13.332 mls/ hr CONT PRN 09/25/19 06:30 09/25/19 21:46 13.332 MLS/HR Ondansetron HCl (Zofran) 4 mg STK-MED ONCE 08/15/19 10:56 08/15/19 10:57 DC Pantoprazole Sodium (PROTONIX VIAL for IV PUSH) 40 mg DAILYAC 07/04/19 11:30 10/15/19 08:56 40 MG Phenylephrine HCl (PHENYLEPHRINE in 0.9% NACL PF) 1 mg STK-MED ONCE 08/15/19 12:34 08/15/19 12:34 DC Piperacillin Sod/ Tazobactam Sod 3.375 gm/Sodium Chloride 50 ml @ 100 mls/hr Q6HRS 09/14/19 12:00 09/22/19 07:26 DC 09/22/19 06:10 100 MLS/HR Piperacillin Sod/ Tazobactam Sod 4.5 gm/Sodium Chloride 100 ml @ 200 mls/hr 1X ONCE 07/04/19 06:00 07/04/19 06:29 DC 07/04/19 05:44 200 MLS/HR Potassium Chloride 110 meq/ Magnesium Sulfate 20 meq/ Multivitamins 10 ml/Chromium/ Copper/Manganese/ Seleni/Zn 1 ml/ Insulin Human Regular 15 unit/ Total Parenteral Nutrition/Amino Acids/Dextrose/ Fat Emulsion Intravenous 1,800 ml @ 75 mls/hr TPN CONT 09/11/19 22:00 09/12/19 21:59 DC 09/11/19 22:48 75 MLS/HR Potassium Chloride 15 meq/ Bicarbonate Dialysis Soln w/ out KCl 5,007.5 ml @ 1,000 mls/ hr Q5H1M 07/17/19 20:00 07/21/19 13:08 DC 07/20/19 18:14 1,000 MLS/HR Potassium Chloride 20 meq/ Bicarbonate Dialysis Soln w/ out KCl 5,010 ml @ 1,000 mls/hr Q5H1M 07/13/19 16:00 07/17/19 19:59 DC 07/17/19 14:54 1,000 MLS/HR Potassium Chloride 40 meq/ Potassium Acetate 60 meq/Magnesium Sulfate 10 meq/ Multivitamins 10 ml/Chromium/ Copper/Manganese/ Seleni/Zn 1 ml/ Insulin Human Regular 20 unit/ Total Parenteral Nutrition/Amino Acids/Dextrose/ Fat Emulsion Intravenous 1,800 ml @ 75 mls/hr TPN CONT 09/22/19 22:00 09/23/19 21:59 DC 09/23/19 00:03 75 MLS/HR Potassium Chloride 70 meq/ Magnesium Sulfate 20 meq/ Multivitamins 10 ml/Chromium/ Copper/Manganese/ Seleni/Zn 1 ml/ Insulin Human Regular 15 unit/ Total Parenteral Nutrition/Amino Acids/Dextrose/ Fat Emulsion Intravenous 1,800 ml @ 75 mls/hr TPN CONT 09/16/19 22:00 09/17/19 21:59 DC 09/16/19 23:13 75 MLS/HR Potassium Chloride 75 meq/ Magnesium Sulfate 15 meq/ Multivitamins 10 ml/Chromium/ Copper/Manganese/ Seleni/Zn 0.5 ml/ Insulin Human Regular 15 unit/ Total Parenteral Nutrition/Amino Acids/Dextrose/ Fat Emulsion Intravenous 1,920 ml @ 80 mls/hr TPN CONT 08/27/19 22:00 08/28/19 21:59 DC 08/27/19 22:41 80 MLS/HR Potassium Chloride 75 meq/ Magnesium Sulfate 15 meq/Calcium Gluconate 8 meq/ Multivitamins 10 ml/Chromium/ Copper/Manganese/ Seleni/Zn 0.5 ml/ Insulin Human Regular 15 unit/ Total Parenteral Nutrition/Amino Acids/Dextrose/ Fat Emulsion Intravenous 1,920 ml @ 80 mls/hr TPN CONT 08/25/19 22:00 08/26/19 21:59 DC 08/25/19 22:28 80 MLS/HR Potassium Chloride 75 meq/ Magnesium Sulfate 15 meq/Calcium Gluconate 8 meq/ Multivitamins 10 ml/Chromium/ Copper/Manganese/ Seleni/Zn 0.5 ml/ Insulin Human Regular 20 unit/ Total Parenteral Nutrition/Amino Acids/Dextrose/ Fat Emulsion Intravenous 1,920 ml @ 80 mls/hr TPN CONT 08/24/19 22:00 08/25/19 21:59 DC 08/24/19 22:00 80 MLS/HR Potassium Chloride 75 meq/ Magnesium Sulfate 15 meq/Calcium Gluconate 8 meq/ Multivitamins 10 ml/Chromium/ Copper/Manganese/ Seleni/Zn 0.5 ml/ Insulin Human Regular 25 unit/ Total Parenteral Nutrition/Amino Acids/Dextrose/ Fat Emulsion Intravenous 1,920 ml @ 80 mls/hr TPN CONT 08/22/19 22:00 08/23/19 21:59 DC 08/22/19 23:08 80 MLS/HR Potassium Chloride 75 meq/ Magnesium Sulfate 20 meq/Calcium Gluconate 10 meq/ Multivitamins 10 ml/Chromium/ Copper/Manganese/ Seleni/Zn 0.5 ml/ Insulin Human Regular 25 unit/ Total Parenteral Nutrition/Amino Acids/Dextrose/ Fat Emulsion Intravenous 1,920 ml @ 80 mls/hr TPN CONT 08/21/19 22:00 08/22/19 21:59 DC 08/21/19 22:04 80 MLS/HR Potassium Chloride 75 meq/ Magnesium Sulfate 20 meq/Calcium Gluconate 10 meq/ Multivitamins 10 ml/Chromium/ Copper/Manganese/ Seleni/Zn 0.5 ml/ Insulin Human Regular 30 unit/ Total Parenteral Nutrition/Amino Acids/Dextrose/ Fat Emulsion Intravenous 1,920 ml @ 80 mls/hr TPN CONT 08/20/19 22:00 08/21/19 22:00 DC 08/20/19 21:51 80 MLS/HR Potassium Chloride 80 meq/ Magnesium Sulfate 20 meq/ Multivitamins 10 ml/Chromium/ Copper/Manganese/ Seleni/Zn 0.5 ml/ Insulin Human Regular 15 unit/ Total Parenteral Nutrition/Amino Acids/Dextrose/ Fat Emulsion Intravenous 1,920 ml @ 80 mls/hr TPN CONT 08/30/19 22:00 08/31/19 21:59 DC 08/30/19 21:40 80 MLS/HR Potassium Chloride 80 meq/ Magnesium Sulfate 20 meq/ Multivitamins 10 ml/Chromium/ Copper/Manganese/ Seleni/Zn 1 ml/ Insulin Human Regular 15 unit/ Total Parenteral Nutrition/Amino Acids/Dextrose/ Fat Emulsion Intravenous 1,800 ml @ 75 mls/hr TPN CONT 09/18/19 22:00 09/19/19 21:59 DC 09/18/19 21:54 75 MLS/HR Potassium Chloride 90 meq/ Magnesium Sulfate 20 meq/ Multivitamins 10 ml/Chromium/ Copper/Manganese/ Seleni/Zn 1 ml/ Insulin Human Regular 15 unit/ Total Parenteral Nutrition/Amino Acids/Dextrose/ Fat Emulsion Intravenous 1,800 ml @ 75 mls/hr TPN CONT 09/07/19 22:00 09/08/19 21:59 DC 09/07/19 22:28 75 MLS/HR Potassium Chloride 90 meq/ Magnesium Sulfate 20 meq/ Multivitamins 10 ml/Chromium/ Copper/Manganese/ Seleni/Zn 1 ml/ Insulin Human Regular 20 unit/ Total Parenteral Nutrition/Amino Acids/Dextrose/ Fat Emulsion Intravenous 1,800 ml @ 75 mls/hr TPN CONT 09/21/19 22:00 09/22/19 21:59 DC 09/21/19 23:13 75 MLS/HR Potassium Chloride/Water 100 ml @ 100 mls/hr Q1H 10/05/19 08:00 10/05/19 09:59 DC 10/05/19 09:12 100 MLS/HR Potassium Phosphate 20 mmol/ Sodium Chloride 106.6667 ml @ 51.667 m... 1X ONCE 07/13/19 13:00 07/13/19 15:03 DC 07/13/19 12:51 51.667 MLS/HR Potassium Acetate 30 meq/Magnesium Sulfate 14 meq/ Multivitamins 10 ml/Chromium/ Copper/Manganese/ Seleni/Zn 1 ml/ Insulin Human Regular 15 unit/ Sodium Chloride 20 meq/Potassium Chloride 30 meq/ Total Parenteral Nutrition/Amino Acids/Dextrose/ Fat Emulsion Intravenous 1,920 ml @ 80 mls/hr TPN CONT 10/11/19 22:00 10/12/19 21:59 DC 10/11/19 21:46 80 MLS/HR Potassium Acetate 30 meq/Magnesium Sulfate 20 meq/ Calcium Gluconate 10 meq/ Multivitamins 10 ml/Chromium/ Copper/Manganese/ Seleni/Zn 0.5 ml/ Insulin Human Regular 30 unit/ Potassium Chloride 30 meq/ Total Parenteral Nutrition/Amino Acids/Dextrose/ Fat Emulsion Intravenous 1,920 ml @ 80 mls/hr TPN CONT 08/19/19 22:00 08/20/19 21:59 DC 08/19/19 22:34 80 MLS/HR Potassium Acetate 40 meq/Magnesium Sulfate 10 meq/ Multivitamins 10 ml/Chromium/ Copper/Manganese/ Seleni/Zn 1 ml/ Insulin Human Regular 20 unit/ Total Parenteral Nutrition/Amino Acids/Dextrose/ Fat Emulsion Intravenous 1,920 ml @ 80 mls/hr TPN CONT 10/04/19 22:00 10/05/19 21:59 DC 10/04/19 21:32 80 MLS/HR Potassium Acetate 40 meq/Magnesium Sulfate 5 meq/ Multivitamins 10 ml/Chromium/ Copper/Manganese/ Seleni/Zn 1 ml/ Insulin Human Regular 30 unit/ Total Parenteral Nutrition/Amino Acids/Dextrose/ Fat Emulsion Intravenous 1,920 ml @ 80 mls/hr TPN CONT 10/03/19 22:00 10/04/19 19:34 DC 10/03/19 21:54 80 MLS/HR Potassium Acetate 55 meq/Magnesium Sulfate 20 meq/ Calcium Gluconate 10 meq/ Multivitamins 10 ml/Chromium/ Copper/Manganese/ Seleni/Zn 0.5 ml/ Insulin Human Regular 30 unit/ Total Parenteral Nutrition/Amino Acids/Dextrose/ Fat Emulsion Intravenous 1,920 ml @ 80 mls/hr TPN CONT 08/18/19 22:00 08/19/19 21:59 DC 08/19/19 01:00 80 MLS/HR Potassium Acetate 55 meq/Magnesium Sulfate 20 meq/ Calcium Gluconate 10 meq/ Multivitamins 10 ml/Chromium/ Copper/Manganese/ Seleni/Zn 0.5 ml/ Insulin Human Regular 35 unit/ Total Parenteral Nutrition/Amino Acids/Dextrose/ Fat Emulsion Intravenous 1,920 ml @ 80 mls/hr TPN CONT 08/16/19 22:00 08/17/19 21:59 DC 08/16/19 22:02 80 MLS/HR Potassium Acetate 60 meq/Magnesium Sulfate 10 meq/ Multivitamins 10 ml/Chromium/ Copper/Manganese/ Seleni/Zn 1 ml/ Insulin Human Regular 20 unit/ Total Parenteral Nutrition/Amino Acids/Dextrose/ Fat Emulsion Intravenous 1,920 ml @ 80 mls/hr TPN CONT 10/05/19 22:00 10/06/19 21:59 DC 10/05/19 21:55 80 MLS/HR Potassium Acetate 60 meq/Magnesium Sulfate 14 meq/ Multivitamins 10 ml/Chromium/ Copper/Manganese/ Seleni/Zn 1 ml/ Insulin Human Regular 15 unit/ Sodium Chloride 20 meq/Total Parenteral Nutrition/Amino Acids/Dextrose/ Fat Emulsion Intravenous 1,920 ml @ 80 mls/hr TPN CONT 10/10/19 22:00 10/11/19 21:59 DC 10/10/19 21:54 80 MLS/HR Potassium Acetate 60 meq/Magnesium Sulfate 14 meq/ Multivitamins 10 ml/Chromium/ Copper/Manganese/ Seleni/Zn 1 ml/ Insulin Human Regular 15 unit/ Total Parenteral Nutrition/Amino Acids/Dextrose/ Fat Emulsion Intravenous 1,920 ml @ 80 mls/hr TPN CONT 10/09/19 22:00 10/10/19 21:59 DC 10/09/19 22:22 80 MLS/HR Potassium Acetate 60 meq/Magnesium Sulfate 14 meq/ Multivitamins 10 ml/Chromium/ Copper/Manganese/ Seleni/Zn 1 ml/ Insulin Human Regular 20 unit/ Total Parenteral Nutrition/Amino Acids/Dextrose/ Fat Emulsion Intravenous 1,920 ml @ 80 mls/hr TPN CONT 10/06/19 22:00 10/07/19 21:59 DC 10/06/19 22:26 80 MLS/HR Potassium Acetate 60 meq/Magnesium Sulfate 5 meq/ Multivitamins 10 ml/Chromium/ Copper/Manganese/ Seleni/Zn 1 ml/ Insulin Human Regular 30 unit/ Total Parenteral Nutrition/Amino Acids/Dextrose/ Fat Emulsion Intravenous 1,920 ml @ 80 mls/hr TPN CONT 09/24/19 22:00 09/25/19 21:59 DC 09/24/19 21:54 80 MLS/HR Potassium Acetate 65 meq/Magnesium Sulfate 20 meq/ Calcium Gluconate 10 meq/ Multivitamins 10 ml/Chromium/ Copper/Manganese/ Seleni/Zn 0.5 ml/ Insulin Human Regular 30 unit/ Total Parenteral Nutrition/Amino Acids/Dextrose/ Fat Emulsion Intravenous 1,920 ml @ 80 mls/hr TPN CONT 08/17/19 22:00 08/18/19 21:59 DC 08/17/19 22:22 80 MLS/HR Potassium Acetate 80 meq/Magnesium Sulfate 5 meq/ Multivitamins 10 ml/Chromium/ Copper/Manganese/ Seleni/Zn 1 ml/ Insulin Human Regular 20 unit/ Total Parenteral Nutrition/Amino Acids/Dextrose/ Fat Emulsion Intravenous 1,920 ml @ 80 mls/hr TPN CONT 09/23/19 22:00 09/24/19 21:59 DC 09/23/19 21:59 80 MLS/HR Prochlorperazine Edisylate (Compazine) 5 mg PACU PRN PRN 08/15/19 07:00 08/16/19 06:59 DC Propofol 100 ml @ 0 mls/hr CONT PRN 10/01/19 06:00 10/08/19 23:50 2.7 MLS/HR Ringer's Solution 1,000 ml @ 30 mls/hr Q24H 08/15/19 07:00 08/15/19 18:59 DC Rocuronium [place] (Zemuron) 50 mg STK-MED ONCE 08/15/19 10:56 08/15/19 10:57 DC Saliva Substitute (Biotene Moisturizing Mouth) 2 spray PRN Q15MIN PRN 09/08/19 11:00 Sevoflurane (Ultane) 60 ml STK-MED ONCE 08/15/19 12:26 08/15/19 12:27 DC Sodium Bicarbonate 50 meq/Sodium Chloride 1,050 ml @ 75 mls/hr Q14H 07/06/19 07:30 07/11/19 10:28 DC 07/10/19 21:10 75 MLS/HR Sodium Acetate 50 meq/Potassium Acetate 55 meq/ Magnesium Sulfate 20 meq/Calcium Gluconate 10 meq/ Multivitamins 10 ml/Chromium/ Copper/Manganese/ Seleni/Zn 0.5 ml/ Insulin Human Regular 35 unit/ Total Parenteral Nutrition/Amino Acids/Dextrose/ Fat Emulsion Intravenous 1,800 ml @ 75 mls/hr TPN CONT 08/13/19 22:00 08/14/19 21:59 DC 08/13/19 22:03 75 MLS/HR Sodium Bicarbonate (Sodium Bicarb Adult 8.4% Syr) 50 meq 1X ONCE 09/25/19 22:00 09/25/19 22:01 DC 09/25/19 21:47 50 MEQ Sodium Chloride (Normal Saline Flush) 3 ml QSHIFT PRN 08/15/19 13:45 Sodium Chloride 80 meq/Potassium Chloride 30 meq/ Potassium Acetate 30 meq/Magnesium Sulfate 14 meq/ Multivitamins 10 ml/Chromium/ Copper/Manganese/ Seleni/Zn 1 ml/ Insulin Human Regular 15 unit/ Total Parenteral Nutrition/Amino Acids/Dextrose/ Fat Emulsion Intravenous 1,920 ml @ 80 mls/hr TPN CONT 10/15/19 22:00 10/16/19 21:59 10/15/19 21:53 80 MLS/HR Sodium Chloride 90 meq/Calcium Gluconate 10 meq/ Multivitamins 10 ml/Chromium/ Copper/Manganese/ Seleni/Zn 0.5 ml/ Total Parenteral Nutrition/Amino Acids/Dextrose/ Fat Emulsion Intravenous 1,512 ml @ 63 mls/hr TPN CONT 07/06/19 22:00 07/07/19 21:59 DC 07/06/19 22:06 63 MLS/HR Sodium Chloride 90 meq/Calcium Gluconate 10 meq/ Multivitamins 10 ml/Chromium/ Copper/Manganese/ Seleni/Zn 1 ml/ Total Parenteral Nutrition/Amino Acids/Dextrose/ Fat Emulsion Intravenous 55.005 ml @ 2.292 mls/hr TPN CONT 07/06/19 22:00 07/06/19 12:33 DC Sodium Chloride 90 meq/Magnesium Sulfate 10 meq/ Calcium Gluconate 20 meq/ Multivitamins 10 ml/Chromium/ Copper/Manganese/ Seleni/Zn 0.5 ml/ Total Parenteral Nutrition/Amino Acids/Dextrose/ Fat Emulsion Intravenous 1,512 ml @ 63 mls/hr TPN CONT 07/07/19 22:00 07/08/19 21:59 DC 07/07/19 22:25 63 MLS/HR Sodium Chloride 90 meq/Magnesium Sulfate 12 meq/ Calcium Gluconate 15 meq/ Multivitamins 10 ml/Chromium/ Copper/Manganese/ Seleni/Zn 0.5 ml/ Insulin Human Regular 25 unit/ Total Parenteral Nutrition/Amino Acids/Dextrose/ Fat Emulsion Intravenous 1,400 ml @ 58.333 mls/ hr TPN CONT 07/27/19 22:00 07/28/19 21:59 DC 07/27/19 21:41 58.333 MLS/HR Sodium Chloride 90 meq/Potassium Chloride 15 meq/ Magnesium Sulfate 12 meq/Calcium Gluconate 15 meq/ Multivitamins 10 ml/Chromium/ Copper/Manganese/ Seleni/Zn 0.5 ml/ Insulin Human Regular 25 unit/ Total Parenteral Nutrition/Amino Acids/Dextrose/ Fat Emulsion Intravenous 1,400 ml @ 58.333 mls/ hr TPN CONT 07/26/19 22:00 07/27/19 21:59 DC 07/26/19 22:13 58.333 MLS/HR Sodium Chloride 90 meq/Potassium Chloride 15 meq/ Potassium Phosphate 10 mmol/ Magnesium Sulfate 8 meq/Calcium Gluconate 15 meq/ Multivitamins 10 ml/Chromium/ Copper/Manganese/ Seleni/Zn 0.5 ml/ Insulin Human Regular 25 unit/ Total Parenteral Nutrition/Amino Acids/Dextrose/ Fat Emulsion Intravenous 1,400 ml @ 58.333 mls/ hr TPN CONT 07/24/19 22:00 07/25/19 21:59 DC 07/24/19 21:20 58.333 MLS/HR Sodium Chloride 90 meq/Potassium Chloride 15 meq/ Potassium Phosphate 10 mmol/ Magnesium Sulfate 10 meq/Calcium Gluconate 20 meq/ Multivitamins 10 ml/Chromium/ Copper/Manganese/ Seleni/Zn 0.5 ml/ Total Parenteral Nutrition/Amino Acids/Dextrose/ Fat Emulsion Intravenous 1,400 ml @ 58.333 mls/ hr TPN CONT 07/11/19 22:00 07/12/19 21:59 DC 07/11/19 21:42 58.333 MLS/HR Sodium Chloride 90 meq/Potassium Chloride 15 meq/ Potassium Phosphate 10 mmol/ Magnesium Sulfate 12 meq/Calcium Gluconate 15 meq/ Multivitamins 10 ml/Chromium/ Copper/Manganese/ Seleni/Zn 0.5 ml/ Insulin Human Regular 25 unit/ Total Parenteral Nutrition/Amino Acids/Dextrose/ Fat Emulsion Intravenous 1,400 ml @ 58.333 mls/ hr TPN CONT 07/25/19 22:00 07/26/19 21:59 DC 07/25/19 22:24 58.333 MLS/HR Sodium Chloride 90 meq/Potassium Chloride 15 meq/ Potassium Phosphate 15 mmol/ Magnesium Sulfate 10 meq/Calcium Gluconate 15 meq/ Multivitamins 10 ml/Chromium/ Copper/Manganese/ Seleni/Zn 0.5 ml/ Total Parenteral Nutrition/Amino Acids/Dextrose/ Fat Emulsion Intravenous 1,400 ml @ 58.333 mls/ hr TPN CONT 07/12/19 22:00 07/13/19 21:59 DC 07/12/19 22:17 58.333 MLS/HR Sodium Chloride 90 meq/Potassium Chloride 15 meq/ Potassium Phosphate 15 mmol/ Magnesium Sulfate 10 meq/Calcium Gluconate 20 meq/ Multivitamins 10 ml/Chromium/ Copper/Manganese/ Seleni/Zn 0.5 ml/ Total Parenteral Nutrition/Amino Acids/Dextrose/ Fat Emulsion Intravenous 1,200 ml @ 50 mls/hr TPN CONT 07/10/19 22:00 07/10/19 14:17 DC Sodium Chloride 90 meq/Potassium Chloride 15 meq/ Potassium Phosphate 18 mmol/ Magnesium Sulfate 8 meq/Calcium Gluconate 15 meq/ Multivitamins 10 ml/Chromium/ Copper/Manganese/ Seleni/Zn 0.5 ml/ Insulin Human Regular 10 unit/ Total Parenteral Nutrition/Amino Acids/Dextrose/ Fat Emulsion Intravenous 1,400 ml @ 58.333 mls/ hr TPN CONT 07/15/19 22:00 07/16/19 21:59 DC 07/15/19 21:43 58.333 MLS/HR Sodium Chloride 90 meq/Potassium Chloride 15 meq/ Potassium Phosphate 18 mmol/ Magnesium Sulfate 8 meq/Calcium Gluconate 15 meq/ Multivitamins 10 ml/Chromium/ Copper/Manganese/ Seleni/Zn 0.5 ml/ Insulin Human Regular 15 unit/ Total Parenteral Nutrition/Amino Acids/Dextrose/ Fat Emulsion Intravenous 1,400 ml @ 58.333 mls/ hr TPN CONT 07/18/19 22:00 07/19/19 21:59 DC 07/18/19 21:47 58.333 MLS/HR Sodium Chloride 90 meq/Potassium Chloride 15 meq/ Potassium Phosphate 18 mmol/ Magnesium Sulfate 8 meq/Calcium Gluconate 15 meq/ Multivitamins 10 ml/Chromium/ Copper/Manganese/ Seleni/Zn 0.5 ml/ Insulin Human Regular 20 unit/ Total Parenteral Nutrition/Amino Acids/Dextrose/ Fat Emulsion Intravenous 1,400 ml @ 58.333 mls/ hr TPN CONT 07/21/19 22:00 07/22/19 21:59 DC 07/21/19 22:45 58.333 MLS/HR Sodium Chloride 90 meq/Potassium Chloride 15 meq/ Potassium Phosphate 18 mmol/ Magnesium Sulfate 8 meq/Calcium Gluconate 15 meq/ Multivitamins 10 ml/Chromium/ Copper/Manganese/ Seleni/Zn 0.5 ml/ Total Parenteral Nutrition/Amino Acids/Dextrose/ Fat Emulsion Intravenous 1,400 ml @ 58.333 mls/ hr TPN CONT 07/14/19 22:00 07/15/19 21:59 DC 07/14/19 22:00 58.333 MLS/HR Sodium Chloride 90 meq/Potassium Phosphate 15 mmol/ Magnesium Sulfate 12 meq/Calcium Gluconate 15 meq/ Multivitamins 10 ml/Chromium/ Copper/Manganese/ Seleni/Zn 0.5 ml/ Insulin Human Regular 30 unit/ Total Parenteral Nutrition/Amino Acids/Dextrose/ Fat Emulsion Intravenous 1,400 ml @ 58.333 mls/ hr TPN CONT 07/29/19 22:00 07/30/19 21:59 DC 07/29/19 21:49 58.333 MLS/HR Sodium Chloride 90 meq/Potassium Phosphate 15 mmol/ Magnesium Sulfate 12 meq/Calcium Gluconate 15 meq/ Multivitamins 10 ml/Chromium/ Copper/Manganese/ Seleni/Zn 0.5 ml/ Insulin Human Regular 40 unit/ Total Parenteral Nutrition/Amino Acids/Dextrose/ Fat Emulsion Intravenous 1,400 ml @ 58.333 mls/ hr TPN CONT 07/30/19 22:00 07/31/19 21:59 DC 07/30/19 21:21 58.333 MLS/HR Sodium Chloride 90 meq/Potassium Phosphate 19 mmol/ Magnesium Sulfate 12 meq/Calcium Gluconate 15 meq/ Multivitamins 10 ml/Chromium/ Copper/Manganese/ Seleni/Zn 0.5 ml/ Insulin Human Regular 40 unit/ Total Parenteral Nutrition/Amino Acids/Dextrose/ Fat Emulsion Intravenous 1,400 ml @ 58.333 mls/ hr TPN CONT 07/31/19 22:00 08/01/19 21:59 DC 07/31/19 21:54 58.333 MLS/HR Sodium Chloride 90 meq/Potassium Phosphate 5 mmol/ Magnesium Sulfate 12 meq/Calcium Gluconate 15 meq/ Multivitamins 10 ml/Chromium/ Copper/Manganese/ Seleni/Zn 0.5 ml/ Insulin Human Regular 30 unit/ Total Parenteral Nutrition/Amino Acids/Dextrose/ Fat Emulsion Intravenous 1,400 ml @ 58.333 mls/ hr TPN CONT 07/28/19 22:00 07/29/19 21:59 DC 07/28/19 22:08 58.333 MLS/HR Sodium Chloride 100 meq/Potassium Chloride 40 meq/ Magnesium Sulfate 15 meq/Calcium Gluconate 15 meq/ Multivitamins 10 ml/Chromium/ Copper/Manganese/ Seleni/Zn 0.5 ml/ Insulin Human Regular 35 unit/ Total Parenteral Nutrition/Amino Acids/Dextrose/ Fat Emulsion Intravenous 1,400 ml @ 58.333 mls/ hr TPN CONT 08/07/19 22:00 08/08/19 21:59 DC 08/07/19 22:46 58.333 MLS/HR Sodium Chloride 100 meq/Potassium Chloride 40 meq/ Magnesium Sulfate 20 meq/Calcium Gluconate 10 meq/ Multivitamins 10 ml/Chromium/ Copper/Manganese/ Seleni/Zn 0.5 ml/ Insulin Human Regular 35 unit/ Total Parenteral Nutrition/Amino Acids/Dextrose/ Fat Emulsion Intravenous 1,400 ml @ 58.333 mls/ hr TPN CONT 08/11/19 22:00 08/12/19 21:59 DC 08/12/19 00:06 58.333 MLS/HR Sodium Chloride 100 meq/Potassium Chloride 40 meq/ Magnesium Sulfate 20 meq/Calcium Gluconate 15 meq/ Multivitamins 10 ml/Chromium/ Copper/Manganese/ Seleni/Zn 0.5 ml/ Insulin Human Regular 35 unit/ Total Parenteral Nutrition/Amino Acids/Dextrose/ Fat Emulsion Intravenous 1,400 ml @ 58.333 mls/ hr TPN CONT 08/10/19 22:00 08/11/19 21:59 DC 08/10/19 22:27 58.333 MLS/HR Sodium Chloride 100 meq/Potassium Phosphate 10 mmol/ Magnesium Sulfate 12 meq/Calcium Gluconate 15 meq/ Multivitamins 10 ml/Chromium/ Copper/Manganese/ Seleni/Zn 0.5 ml/ Insulin Human Regular 35 unit/ Potassium Chloride 20 meq/ Total Parenteral Nutrition/Amino Acids/Dextrose/ Fat Emulsion Intravenous 1,400 ml @ 58.333 mls/ hr TPN CONT 08/04/19 22:00 08/05/19 21:59 DC 08/04/19 22:10 58.333 MLS/HR Sodium Chloride 100 meq/Potassium Phosphate 19 mmol/ Magnesium Sulfate 12 meq/Calcium Gluconate 15 meq/ Multivitamins 10 ml/Chromium/ Copper/Manganese/ Seleni/Zn 0.5 ml/ Insulin Human Regular 40 unit/ Potassium Chloride 20 meq/ Total Parenteral Nutrition/Amino Acids/Dextrose/ Fat Emulsion Intravenous 1,400 ml @ 58.333 mls/ hr TPN CONT 08/03/19 22:00 08/04/19 21:59 DC 08/03/19 21:20 58.333 MLS/HR Sodium Chloride 100 meq/Potassium Phosphate 5 mmol/ Magnesium Sulfate 12 meq/Calcium Gluconate 15 meq/ Multivitamins 10 ml/Chromium/ Copper/Manganese/ Seleni/Zn 0.5 ml/ Insulin Human Regular 35 unit/ Potassium Chloride 20 meq/ Total Parenteral Nutrition/Amino Acids/Dextrose/ Fat Emulsion Intravenous 1,400 ml @ 58.333 mls/ hr TPN CONT 08/05/19 22:00 08/06/19 21:59 DC 08/05/19 22:59 58.333 MLS/HR Succinylcholine Chloride (Anectine) 120 mg 1X ONCE 07/11/19 08:30 07/11/19 08:31 DC 07/11/19 08:34 120 MG Vecuronium [place] (Norcuron Bolus) 6 mg PRN Q6HRS PRN 08/25/19 19:15 08/25/19 19:35 DC Labs: Lab Laboratory Tests Test 10/15/19 12:15 10/15/19 17:30 10/16/19 00:30 10/16/19 06:06 O2 Saturation 95 % (92-99) Arterial Blood pH 7.41 (7.35-7.45) Arterial Blood pCO2 at Patient Temp 54 mmHg (35-46) Arterial Blood pO2 at Patient Temp 79 mmHg (75-108) Arterial Blood HCO3 34 mmol/L (21-28) Arterial Blood Base Excess 8 mmol/L (-3-3) FiO2 33 Glucose (Fingerstick) 135 mg/dL (70-99) 121 mg/dL (70-99) 128 mg/dL (70-99) Micro NEG ALEXANDRA 56 PSEUDOMONAS AERUGINOSA ANTIBIOTIC RESULT INTERPRETATION AMIKACIN <=16 S AZTREONAM >16 R CEFTAZIDIME >16 R CIPROFLOXACIN <=0.25 S CEFEPIME 16 I GENTAMICIN <=2 S LEVOFLOXACIN <=0.5 S CONTINUED ON NEXT PAGE RUN DATE: 09/28/19 [facility] *LIVE* PAGE 2 RUN TIME: 1121 Specimen Inquiry SPEC: [id number] PATIENT: SCOTT CUELLAR [id number] (Continued) Procedure Result ANTIMICROBIAL SUSCEPTIBILITY Preliminary (continued) MEROPENEM <=1 S PIPERACILLIN/TAZOBACTAM 64 S TOBRAMYCIN <=2 S Unless otherwise specified, Testing Performed by: [address] [place] [address] For Inquires, the Physician may contact the Microbiology department at [phone] Objective: Assessment: Patient with prolonged hospitalization more than 3 months Multiple medical problems Multiple surgical procedures Fever intermittent Acute pancreatitis with persistent necrosis CT a/p 07/27 Increased ascites. 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 Sequela of pancreatitis with extensive pseudocysts again demonstrated, the right-sided collections are slightly larger since the prior exam, the left-sided collections are stable. 09/24 fluid cult PSAE (MDRO),yeast; treated Cholelithiasis with thickening of the gallbladder wall. Leucocytosis JUANA,Hyperkalemia, Metabolic acidosis off dialysis Acute hypoxic resp failure ,bilateral pleural effusion and atelectasis hypocalcemia Prediabetes HTN s/p trach Pleural effusion status post CTS left side Abdominal fluid culture MDRO Pseudomonas, yeast Plan: Plan of Care Observe off antibiotics Monitor labs/temp General surgery following Monitor drain output Maintain aspiration precaution Supportive care Contact isolation for CRE/MDRO Discussed with nursing staff YUNIOR JONES MD Oct 16, 2019 07:57
[2019-10-16] MEDS: PANTOPRAZOLE IV PUSH 40 MG VIAL. IVP SCH (08:23)
--- NOTE | 2019-10-16 08:24 | RAD ---
Single view chest dated 10/16/2019. COMPARISON: 10/13/2019. CLINICAL INDICATION: Follow-up pleural effusion. FINDINGS: Single upright portable exam performed. Tracheostomy tube, nasogastric tube, left-sided PICC and left-sided chest tube in place, unchanged. Heart size is mildly enlarged, stable. Lung volumes are low, limiting evaluation. There is consolidation at both lung bases with blunting of the costophrenic sulci, not significantly changed given differences in technique. No pneumothorax. IMPRESSION: No significant interval change compared to 10/13/2019. Electronically signed by: Nicolas Yip MD (10/16/2019 8:21 AM) [id number]
[2019-10-16 08:31] LABS: BASO % 0 % (0-3); EOS # 0.2 x10^3/uL (0.0-0.7); EOS % 2 % (0-3); HEMOGLOBIN 8.5 g/dL (12.0-15.5); LYMPH # 1.4 x10^3/uL (1.0-4.8); LYMPH % 12 % (24-48); MEAN CORPUSCULAR HEMOGLOBIN 28 pg (25-35); MEAN CORPUSCULAR HGB CONC 33 g/dL (31-37); MEAN CORPUSCULAR VOLUME 85 fL (79-100); MONO % 8 % (0-9); NEUT # 9.7 x10^3/uL (1.8-7.7); NEUT % 78 % (31-73); PLATELET COUNT 394 x10^3/uL (140-400); RED BLOOD COUNT 3.06 x10^6/uL (3.50-5.40); RED CELL DISTRIBUTION WIDTH 17.7 % (11.5-14.5); WHITE BLOOD COUNT 12.4 x10^3/uL (4.0-11.0)
[2019-10-16 08:44] LABS: CALCIUM 10.5 mg/dL (8.5-10.1); CREATININE 0.6 mg/dL (0.6-1.0); GFR 106.3; POTASSIUM 4.5 mmol/L (3.5-5.1)
[2019-10-16 09:01] LABS: BASE EXCESS ABG 8 mmol/L (-3-3); HCO3 ABG 34 mmol/L (21-28); PCO2 ABG 55 mmHg (35-46); PO2 ABG 108 mmHg (75-108); SAT O2 ABG 97 % (92-99)
--- NOTE | 2019-10-16 09:29 | NUR ---
Due to increase in confusion and change in respiratory pattern, patient was transferred back to ICU status. ABG, CXR, and labs completed this morning.
[2019-10-16 09:44] LABS: FIO2 ABG 33
[2019-10-16] MEDS: ACETYLCYSTEINE 20% for RESP TX 600 MG/3 ML. NEB SCH ×2 (09:50→19:40)
[2019-10-16] MEDS: TPN PER PHARMACY MC PRN (10:04)
--- NOTE | 2019-10-16 10:05 | NUR ---
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, 8 inches Weight: 87.9 kg Current diet: NPO LABS: Sodium: 137 Potassium: 4.5 Chloride: 101 Calcium: 10.5 Corrected Calcium: 12.82 Magnesium: 2 CO2: 35 SCr: 0.6 Glucose: 121-129 Albumin: 1.1 AST: 19 ALT: 14 TPN FORMULA: TPN TYPE: Central Continuous AMINO ACIDS: 80 gm DEXTROSE: 250 gm LIPIDS: 20 gm SODIUM CHLORIDE: 80 mEq POTASSIUM CHLORIDE: 30 mEq POTASSIUM ACETATE: 30 mEq MAGNESIUM: 14 mEq INSULIN: 15 units MULTIPLE VITAMIN: 10 ml TRACE ELEMENTS: 1 ml(s) TPN PLAN: Continue same TPN. -BMP in AM. R: Continue same TPN formula. Will monitor electrolytes, glucose, and tolerance to TPN. MIKAYLA CHU [facility]OPER [facility], 10/16/19 [id number]
--- NOTE | 2019-10-16 10:15 | PDOC ---
PULMONARY PROGRESS NOTES Subjective Sleeping laying in bed, remains on trach shield, chest tube draining yellow fluid, nursing reports chest tube this am 30cc/ 24 hours Patient intubated on 07/10 , s/p trach 07/24, remains on TS, episode of AMS and tachycardia yesterday Vitals Vital Signs Date Time Temp Pulse Resp B/P (MAP) Pulse Ox O2 Delivery O2 Flow Rate FiO2 10/16/19 10:00 108 32 130/70 (90) 100 Tracheal Collar 10/16/19 08:00 99.0 99.0 10/16/19 05:05 8.0 ROS: No Nausea, No Chest Pain, No Abdominal Pain General: Alert, No acute distress HEENT: Other (nc at perrl nose clear neck trach site ok no lab no thyromegaly) Lungs: Other (diminshed in bases) Cardiovascular: S1, S2 Abdomen: Soft, Non-tender, Other (multiple KAYLIN drains ) Extremities: Other (+1 BLE edema) Skin: Warm, Dry Labs Laboratory Tests Test 10/14/19 13:10 10/14/19 17:54 10/15/19 00:20 10/15/19 06:07 Glucose (Fingerstick) 134 mg/dL (70-99) 117 mg/dL (70-99) 143 mg/dL (70-99) 134 mg/dL (70-99) Test 10/15/19 12:15 10/15/19 17:30 10/16/19 00:30 10/16/19 06:06 O2 Saturation 95 % (92-99) Arterial Blood pH 7.41 (7.35-7.45) Arterial Blood pCO2 at Patient Temp 54 mmHg (35-46) Arterial Blood pO2 at Patient Temp 79 mmHg (75-108) Arterial Blood HCO3 34 mmol/L (21-28) Arterial Blood Base Excess 8 mmol/L (-3-3) FiO2 33 Glucose (Fingerstick) 135 mg/dL (70-99) 121 mg/dL (70-99) 128 mg/dL (70-99) Test 10/16/19 08:15 10/16/19 08:45 White Blood Count 12.4 x10^3/uL (4.0-11.0) Red Blood Count 3.06 x10^6/uL (3.50-5.40) Hemoglobin 8.5 g/dL (12.0-15.5) Hematocrit 26.0 % (36.0-47.0) Mean Corpuscular Volume 85 fL (79-100) Mean Corpuscular Hemoglobin 28 pg (25-35) Mean Corpuscular Hemoglobin Concent 33 g/dL (31-37) Red Cell Distribution Width 17.7 % (11.5-14.5) Platelet Count 394 x10^3/uL (140-400) Neutrophils (%) (Auto) 78 % (31-73) Lymphocytes (%) (Auto) 12 % (24-48) Monocytes (%) (Auto) 8 % (0-9) Eosinophils (%) (Auto) 2 % (0-3) Basophils (%) (Auto) 0 % (0-3) Neutrophils # (Auto) 9.7 x10^3/uL (1.8-7.7) Lymphocytes # (Auto) 1.4 x10^3/uL (1.0-4.8) Monocytes # (Auto) 1.0 x10^3/uL (0.0-1.1) Eosinophils # (Auto) 0.2 x10^3/uL (0.0-0.7) Basophils # (Auto) 0.0 x10^3/uL (0.0-0.2) Sodium Level 137 mmol/L (136-145) Potassium Level 4.5 mmol/L (3.5-5.1) Chloride Level 101 mmol/L (98-107) Carbon Dioxide Level 35 mmol/L (21-32) Anion Gap 1 (6-14) Blood Urea Nitrogen 16 mg/dL (7-20) Creatinine 0.6 mg/dL (0.6-1.0) Estimated GFR (Cockcroft-Gault) 106.3 Glucose Level 129 mg/dL (70-99) Calcium Level 10.5 mg/dL (8.5-10.1) Magnesium Level 2.0 mg/dL (1.8-2.4) O2 Saturation 97 % (92-99) Arterial Blood pH 7.41 (7.35-7.45) Arterial Blood pCO2 at Patient Temp 55 mmHg (35-46) Arterial Blood pO2 at Patient Temp 108 mmHg (75-108) Arterial Blood HCO3 34 mmol/L (21-28) Arterial Blood Base Excess 8 mmol/L (-3-3) FiO2 33 Laboratory Tests Test 10/15/19 12:15 10/15/19 17:30 10/16/19 00:30 10/16/19 06:06 O2 Saturation 95 % (92-99) Arterial Blood pH 7.41 (7.35-7.45) Arterial Blood pCO2 at Patient Temp 54 mmHg (35-46) Arterial Blood pO2 at Patient Temp 79 mmHg (75-108) Arterial Blood HCO3 34 mmol/L (21-28) Arterial Blood Base Excess 8 mmol/L (-3-3) FiO2 33 Glucose (Fingerstick) 135 mg/dL (70-99) 121 mg/dL (70-99) 128 mg/dL (70-99) Test 10/16/19 08:15 10/16/19 08:45 White Blood Count 12.4 x10^3/uL (4.0-11.0) Red Blood Count 3.06 x10^6/uL (3.50-5.40) Hemoglobin 8.5 g/dL (12.0-15.5) Hematocrit 26.0 % (36.0-47.0) Mean Corpuscular Volume 85 fL (79-100) Mean Corpuscular Hemoglobin 28 pg (25-35) Mean Corpuscular Hemoglobin Concent 33 g/dL (31-37) Red Cell Distribution Width 17.7 % (11.5-14.5) Platelet Count 394 x10^3/uL (140-400) Neutrophils (%) (Auto) 78 % (31-73) Lymphocytes (%) (Auto) 12 % (24-48) Monocytes (%) (Auto) 8 % (0-9) Eosinophils (%) (Auto) 2 % (0-3) Basophils (%) (Auto) 0 % (0-3) Neutrophils # (Auto) 9.7 x10^3/uL (1.8-7.7) Lymphocytes # (Auto) 1.4 x10^3/uL (1.0-4.8) Monocytes # (Auto) 1.0 x10^3/uL (0.0-1.1) Eosinophils # (Auto) 0.2 x10^3/uL (0.0-0.7) Basophils # (Auto) 0.0 x10^3/uL (0.0-0.2) Sodium Level 137 mmol/L (136-145) Potassium Level 4.5 mmol/L (3.5-5.1) Chloride Level 101 mmol/L (98-107) Carbon Dioxide Level 35 mmol/L (21-32) Anion Gap 1 (6-14) Blood Urea Nitrogen 16 mg/dL (7-20) Creatinine 0.6 mg/dL (0.6-1.0) Estimated GFR (Cockcroft-Gault) 106.3 Glucose Level 129 mg/dL (70-99) Calcium Level 10.5 mg/dL (8.5-10.1) Magnesium Level 2.0 mg/dL (1.8-2.4) O2 Saturation 97 % (92-99) Arterial Blood pH 7.41 (7.35-7.45) Arterial Blood pCO2 at Patient Temp 55 mmHg (35-46) Arterial Blood pO2 at Patient Temp 108 mmHg (75-108) Arterial Blood HCO3 34 mmol/L (21-28) Arterial Blood Base Excess 8 mmol/L (-3-3) FiO2 33 Medications Active Scripts Medications Dose Route/Sig Max Daily Dose Days Date Category Bisoprolol Fumarate 5 Mg Tablet 10 Mg PO DAILY 07/04/19 Reported Comments CXR 10/16/19 IMPRESSION: No significant interval change compared to 10/13/2019. ct abdomen /pelvis 09/23 1. Removal of the percutaneous pigtail drainage catheters since the prior exam. Sequela of pancreatitis with extensive pseudocysts again demonstrated, the right-sided collections are slightly larger since the prior exam, the left-sided collections are stable. See above. 2. Moderate to large left pleural effusion with atelectasis and collapse of most of the left lower lobe, stable. Small right pleural effusion is stable. 3. Gallstone. ct chest 10/02 reviewed GRAM NEG COCCOBACILLI:MANY SQUAMOUS EPI CELL:RARE PMN (WBCs):FEW Unless otherwise specified, Testing Performed by: [address] [address] For Inquires, the Physician may contact the Microbiology department at [phone] RESPIRATORY CULTURE Final Final MANY GRAM NEGATIVE RODS on 10/03/19 at 1106 FINAL ID= [[email or web address]] MICRO CHARGES PSEUDOMONAS AERUGINOSA ANTIMICROBIAL SUSCEPTIBILITY Final Comment NEG ALEXANDRA 56 PSEUDOMONAS AERUGINOSA ANTIBIOTIC RESULT INTERPRETATION AMIKACIN <=16 S AZTREONAM <=4 S CEFTAZIDIME <=1 S CIPROFLOXACIN <=0.25 S CEFEPIME <=2 S CEFTAZIDIME/AVIBACTAM <=4 S GENTAMICIN <=2 S LEVOFLOXACIN <=0.5 S Impression . IMPRESSION: 1. Acute hypoxemic respiratory failure secondary to ARDS status post trach, developed anemia 09/24, blood drainage from RLQ abdomen drain site, and surroun ding firmness / developed septic shock 09/24 from abdomen source, required levo 09/24 s/p 3 new drains 09/24 with brown color drainage, on/off vent , on TS now 2. Gallstone pancreatitis, now with ongoing bleeding from prior drain. Anemic. s/p Tx multiple units over several days 3. septic shock/sepsis, recurrent 09/24, source abdomen. , off levo now, 4. Acute kidney injury-, Off HD--renal function decling. suspect JUANA on CKD due to hypotension , improved now 5. Acute gallstone pancreatitis. 6. Hypoalbuminemia. 7. Moderate persistent effusions, s/p left thora 08/29, reaccumulation of left effusion. O2 requirement not changed. 8. Fever- ,hypotension. suspect recurrent sepsis/ likely pancreatic source. Per ID, per surgery-- 9. Chronic anemia-- ongoing / s/p PRBC 10. Covid 19 testing negative 11. Moderate to large ascites-S/P paracentisis 12.S/P paracentisis with 4 liters removed on 08/03/19 13. S/P IR drain placement on 08/26/2019, removal, re inserted 09/24 14. Depression/Anxiety 15. Increase effusion, ? loculated/ s/p chest tube.. drainage slowing down. 200 cc /24 hr Plan . 1. TS as tolerated titrate fio2 to keep sat 94%, off vent 2. Follow all cultures/ PSA from pelvic drains. Abx per ID/ thoracentesis result transudate, await c/s, 3. Follow surgery recs-- Acute pancreatitis with persistent necrosis ---- 08/14 status post KAYLIN drain placement + C paropsilosis; 08/23 + yeast & high amylase; s/p additional drains on 08/25, removal of drains and now increase pseudocyst and increase fluid collection. likely infected fluid/ sepsis. on BS abx.follow surgery rec, planning surgical intervention Tere 4. Follow ID recs for ABX---- currently monitoring off ABX 5. Follow nephrology recs ----- 6. Continue TPN 7. monitor HGB, 4 units since 09/23--monitor HGB transfuse if less than 8.5 8 s/p thoracentesis, 08/29, 3 litres removed, s/p ct on 10/02. ct drainage, 180 cc over the past 24 hrs, suction -40, am cxr, flushed chest tube 10/09 9. Pt remains critically ill from severe necrotic pancreatis. Even with surgery prognosis grim. Surgery informed family. 10. lasix/albumin prn 11. sputum gram neg cocobacilli. anna sensitive--per ID 12. Abdominal fluid culture MDRO Pseudomonas, yeast-- per ID DVT/GI PPX: protonix--- PT/OT D/W RN, RT CC time 30 minutes HARMEET BEE MD Oct 16, 2019 10:14
--- NOTE | 2019-10-16 10:51 | PDOC ---
PROGRESS NOTES Chief Complaint Chief Complaint History of Present Illness 48yo F w/ PMHx HTN, prediabetes who presented the emergency room complaints of abdominal pain. Patient described off and on 3 days. She states is constant, described as a squeezing sensation in a band-like distribution. + nausea, vomiting. She denies any fever or diarrhea. Patient denies any abdominal surgical procedures. She stateed is worse with movements, car ride. Pain initially was upper abdomen however now pretty much generalized. Last bowel movement was 07/03/2019. Nothing makes her pain better. Patient denies any shortness of breath. She does state the pain moves into her chest. Denies any headache or visual changes. Lipase 07347, AST 401, ALT 249, Bilirubin 1.4. CT abdomen confirms pancreatic inflammation, peripancreatic fluid and inflammatory changes around the pancreas consistent with pancreatitis. Cholelithiasis and 1.4cm uterine fibroid as well as possible left salpingitis. Admitted for further care Gallstone pancreatitis with necrosis. -CT A/P 09/23 showed multiple pseudocysts, slight larger on the right. s/p drains x , 09/24. + PSAE (MDRO-R Cefepime, Zosyn ALEXANDRA < 64) and yeast, -s/p drain 08/14. C. parapsilosis. s/p drain 08/23 + yeast & high amylase; s/p additional drain on 08/25. Drains removed. Ascites s/p paracentesis 08/02 & 08/23. C. parapsilosis JUANA. off HD. Impression and plan: Acute hypoxic Respiratory failure required mechanical ventilation Tracheostomy bilateral pleural effusions/pulm edema s/p Throacentesis on 10/03/2019 Severe Acute gallstone pancreatitis (not a surgical candidate at this time) with necrosis Acute kidney failure now requiring dialysis Gallstones (Calculus of gallbladder with acute cholecystitis without obstruction) HTN Intractable pain Intractable nausea Covid 19 negative. Acute on chronic anemia EEG: No seizure activityFever - better currently - intermittent could be from underlying pancreatitis blood cults 08/21 - neg so far ? Ileus with vomiting Abd distention - U/S and CT reviewed s/p 0.4 L of opaque, debris-containing ascites was removed 08/23 Acute pancreatitis with persistent necrosis Gallstone pancreatitis with necrosis. -CT A/P 09/23 showed multiple pseudocysts, slight larger on the right. s/p drains x 3, 09/24. + PSAE (MDRO-R Cefepime, Zosyn ALEXANDRA < 64) and yeast, -s/p drain 08/14. C. parapsilosis. s/p drain 08/23 + yeast & high amylase; s/p additional drain on 08/25. Drains removed. Ascites s/p paracentesis 08/02 & 08/23. C. parapsilosis JUANA. off HD. A large fluid collection in the pancreatic bed has slightly decreased in size, described below, the pancreas itself is difficult to visualize, which could be due to necrosis or obscuration of pancreatic parenchyma from the surrounding fluid collection.10/02 - 08/14 status post KAYLIN drain placement + C paropsilosis. s/p additional drains 08/25 Anemia - S/p PRBCs Cholelithiasis with thickening of the gallbladder wall. Leucocytosis improving JUANA, hyperkalemia, Metabolic acidosis off dialysis hypocalcemia Prediabetes HTN s/p trach ESRD on HD Hyperglycemia severe protein-caloric malnutrition Moderate to large left pleural effusion with atelectasis and collapse of most of the left lower lobe, stable FEN - albumin, NS at 80 cc/hr, TPN will start Mucomyst for secretions Off antibiotics PPX - SCDs, off lovenox currently, high risk for thrombosis but in light of her recent anemia and need for transfusion the risks do not outweigh benefits at this time. will continue to evaluate on a daily basis FULL CODE Dispo - ICU, critically ill Poor prognosis 37 MIN CC TIME History of Present Illness History of Present Illness 09/25: IR placed drain on 09/24. 4u PRBC after Hb drop. Hb 8.8 today. Off Levophed this morning. T-max 100.3. Much more lethargic today. CXR with left sided diffuse infiltrates. 09/26: Tachycardic overnight into the 140s. NGT clamped. On BIPAP currently. Drains with serosanguinous discharge. WBC 8, Tmax 99.6F. 09/27: Seen on [facility] in ICU. Hypertensive and tachycardic. Labs stable. blood stained drainage from drains. Afebrile. 09/28: Seen on [facility] in ICU. She is a bit confused, drowsy, but when sitting up is conversational and confusion somewhat clears. She is asking for more pain medication. Stable drains, still very tachy.Na 147 09/29: Patient vomited overnight. Aspirated. Tried to pull her trach out, she was told she would without her trach, she said "I know, I just want to go home". Hb 7.6. Afebrile, still very tachycardic. 1055ml out of right sided KAYLIN drain 09/30: Overnight hypoxic, on BIPAP. CXR with left sided white out lung. Sig nificant mucous plug suctioned by RT with improvement in her ABG after 2 hours this morning. Not really active, tired, lethargic. 890ml out of drains past 24 hours. On vent. D/w daughter bedside. 10/01: Still on vent overnight with copious pulmonary drainage on suctioning. Labs stable, UOP stable 1L. Drain output still significant with 1505mL. She has shown her phone password [id number] and made it clear she does not want her daughters to access her phone at this time. 6:15: Patient quite frail, she has had such a lengthy hospital stay that she is certainly depressed and as documented 3 days ago is wanting to go home. Most likely patient is also tired of being hospitalized with an end point no where in sight. Reassurance and encouragement provided during my visit. Plans for thoracentesis later in the day 10/03: No acute events reported overnight, case discussed with nursing staff patient in no acute distress, complaints of the abdomimal pain during my visit, patient is quite depressed, reassurance has been provided, discussed with nursing staff at bedside, replace electrolytes 10/04 off vent / on TS , no distress 10/12 Patient seen and examined ICU BED [id number] prognosis Sputum from 09/30 - growing PSA - may be colonization I to Meropenem add Cipro Continue meropenem, has MDRP PSAE September 24 from abd cont micafungin September 24 bleeding from Sx. site RLQ and firmness)stable oncology consulted Cholelithiasis. Mild thickened appearance of the gallbladder wall. sono 10/12 Mild right hydronephrosis.Fluid collection identified anterior to the pancreas. ct drainage 200 cc/24 hrs d/c antibiotics , observe 10/12 cxr pending 10/1210/14/2019 Patient having trouble with secretions this morning, no other complaints, discussed with surgical WAGON PERSON. Plans for OR on Thursday. No fever above 99.9 overnight, remains tachycardic, medications reviewed. 10/15/2019 Patient with thick secretions, no other acute events reported overnight. Patient seems to be quite anxious, I have tried to provide reassurance during my encounter regarding her upcoming surgical procedure. Patient seems to be quite anxious and seems to experience panic attacks when she first wakes up thinking that is the day of surgery. At the present time she seems to be medically optimized for planned surgery, discussed with nursing staff at bedside 10/16/2019 Patient seems to be hallucinating and having probably memories from her former life prior to this prolonged hospital stay which is 3 months plus in length. Immediate plans are for surgical intervention on Thursday which will consist of a Whipple procedure. At the present time the patient remains critically stable her prognosis is quite guarded at best. No acute events reported overnight other than the hallucinations continues to have chest tube in multiple abdominal drains as well. All these are probable source of infection potentially so we will continue to monitor, we appreciate the input of all our consultants involved in Ms. Pedroza care Date: Aug 15, 2019 Pre-Op Diagnosis: Necrotizing pancreatitis Post-Op Diagnosis: same Procedure Performed: laparoscopic exploration Surgeon: Renzo Servin Asst: Dr. Arturo Harris Anesthesia Type: GETA plus local Blood Loss: 50 Specimans Obtained: cultures, debris Findings: 1000 cc ascites suctioned off, cultures sent, diffuse debris, obliteration of surgical planes preventing any meaningful exploration 09/19/2019 Patient seen and examined in the ICU She appears extremely ill She is tachypneic at 35 respirations per minute and tachycardic at 132 bpm She is extremely encephalopathic and shaky She appears clammy Chart reviewed Discussed with RN Prognosis extremely guarded at best 09/18/2019 Patient still in ICU Resting with no apparent distress Chart reviewed 09/17/2019 Patient seen and examined in the ICU She is wiping her face with a cough Discussed with RN Chart reviewed We hope to get her out of the ICU later today if possible 09/16/2019 Patient seen and examined in the ICU once again She is back on NG suction On IV Zosyn Has IV TPN Sedated with Precedex but anxious still Appears somewhat clammy and pale Chart reviewed Discussed with RN She remains critically ill BRIEF OPERATIVE NOTE Pre-Op Diagnosis Pancreatitis with pseudocysts, suspected infection Post-Op Diagnosis same Procedure Performed CT abdominal Drains x 3 Surgeon Tesfaye Anesthesia Type: Conscious Sedation Findings 3 abdominal drains, 14F, with turbid pancreatic fluid and necrotic debris in each. Complications No immediate 08/26: Patient today somewhat restless and having bilious secretions from ET tube, imaging studies ordered, discussed with recruiting and selection consultant. Pretty poor prognosis, hopefully is not a fistula, poor surgical candidate. 08/27: Imaging with no acute events, she seems more stable today compared to yesterday. Encouraged as much activity as possible patient at high risk for severe depression. Vitals Vitals Vital Signs Date Time Temp Pulse Resp B/P (MAP) Pulse Ox O2 Delivery O2 Flow Rate FiO2 10/16/19 10:00 108 32 130/70 (90) 100 Tracheal Collar 10/16/19 08:00 99.0 99.0 10/16/19 05:05 8.0 Physical Exam Physical Exam GENERAL: Patient alert awake comfortable HEENT: Anicteric, no thrush, NG tube in place NECK: Tracheostomy LUNGS: Diminished aeration bases, no accessory muscle use - CT on left HEART: S1, S2,regular ABDOMEN: Mild distention, bowel sounds present, soft, grimaces to palpation, drains x 3 : Lind ( 09/24) EXTREMITIES: + edema BLE SKIN: no signs of gen rash LUE-PICC without signs of complications General: No acute distress Heart: Regular rate (SR/ST), Other (distant heart sounds) Lungs: Other (diminshed in bases) Abdomen: Soft, Other (drains in place) Extremities: No cyanosis, Other (3+ bilateral LE pitting edema) Skin: No rashes, No significant lesion Labs LABS Laboratory Tests Test 10/15/19 12:15 10/15/19 17:30 10/16/19 00:30 10/16/19 06:06 O2 Saturation 95 % (92-99) Arterial Blood pH 7.41 (7.35-7.45) Arterial Blood pCO2 at Patient Temp 54 mmHg (35-46) Arterial Blood pO2 at Patient Temp 79 mmHg (75-108) Arterial Blood HCO3 34 mmol/L (21-28) Arterial Blood Base Excess 8 mmol/L (-3-3) FiO2 33 Glucose (Fingerstick) 135 mg/dL (70-99) 121 mg/dL (70-99) 128 mg/dL (70-99) Test 10/16/19 08:15 10/16/19 08:45 White Blood Count 12.4 x10^3/uL (4.0-11.0) Red Blood Count 3.06 x10^6/uL (3.50-5.40) Hemoglobin 8.5 g/dL (12.0-15.5) Hematocrit 26.0 % (36.0-47.0) Mean Corpuscular Volume 85 fL (79-100) Mean Corpuscular Hemoglobin 28 pg (25-35) Mean Corpuscular Hemoglobin Concent 33 g/dL (31-37) Red Cell Distribution Width 17.7 % (11.5-14.5) Platelet Count 394 x10^3/uL (140-400) Neutrophils (%) (Auto) 78 % (31-73) Lymphocytes (%) (Auto) 12 % (24-48) Monocytes (%) (Auto) 8 % (0-9) Eosinophils (%) (Auto) 2 % (0-3) Basophils (%) (Auto) 0 % (0-3) Neutrophils # (Auto) 9.7 x10^3/uL (1.8-7.7) Lymphocytes # (Auto) 1.4 x10^3/uL (1.0-4.8) Monocytes # (Auto) 1.0 x10^3/uL (0.0-1.1) Eosinophils # (Auto) 0.2 x10^3/uL (0.0-0.7) Basophils # (Auto) 0.0 x10^3/uL (0.0-0.2) Sodium Level 137 mmol/L (136-145) Potassium Level 4.5 mmol/L (3.5-5.1) Chloride Level 101 mmol/L (98-107) Carbon Dioxide Level 35 mmol/L (21-32) Anion Gap 1 (6-14) Blood Urea Nitrogen 16 mg/dL (7-20) Creatinine 0.6 mg/dL (0.6-1.0) Estimated GFR (Cockcroft-Gault) 106.3 Glucose Level 129 mg/dL (70-99) Calcium Level 10.5 mg/dL (8.5-10.1) Magnesium Level 2.0 mg/dL (1.8-2.4) O2 Saturation 97 % (92-99) Arterial Blood pH 7.41 (7.35-7.45) Arterial Blood pCO2 at Patient Temp 55 mmHg (35-46) Arterial Blood pO2 at Patient Temp 108 mmHg (75-108) Arterial Blood HCO3 34 mmol/L (21-28) Arterial Blood Base Excess 8 mmol/L (-3-3) FiO2 33 Assessment and Plan Assessmemt and Plan Problems Medical Problems: (1) Acute pancreatitis Status: Acute (2) Cholelithiasis Status: Acute Comment Review of Relevant I have reviewed the following items kolby (where applicable) has been applied. Labs Laboratory Tests Test 10/14/19 13:10 10/14/19 17:54 10/15/19 00:20 10/15/19 06:07 Glucose (Fingerstick) 134 mg/dL (70-99) 117 mg/dL (70-99) 143 mg/dL (70-99) 134 mg/dL (70-99) Test 10/15/19 12:15 10/15/19 17:30 10/16/19 00:30 10/16/19 06:06 O2 Saturation 95 % (92-99) Arterial Blood pH 7.41 (7.35-7.45) Arterial Blood pCO2 at Patient Temp 54 mmHg (35-46) Arterial Blood pO2 at Patient Temp 79 mmHg (75-108) Arterial Blood HCO3 34 mmol/L (21-28) Arterial Blood Base Excess 8 mmol/L (-3-3) FiO2 33 Glucose (Fingerstick) 135 mg/dL (70-99) 121 mg/dL (70-99) 128 mg/dL (70-99) Test 10/16/19 08:15 10/16/19 08:45 White Blood Count 12.4 x10^3/uL (4.0-11.0) Red Blood Count 3.06 x10^6/uL (3.50-5.40) Hemoglobin 8.5 g/dL (12.0-15.5) Hematocrit 26.0 % (36.0-47.0) Mean Corpuscular Volume 85 fL (79-100) Mean Corpuscular Hemoglobin 28 pg (25-35) Mean Corpuscular Hemoglobin Concent 33 g/dL (31-37) Red Cell Distribution Width 17.7 % (11.5-14.5) Platelet Count 394 x10^3/uL (140-400) Neutrophils (%) (Auto) 78 % (31-73) Lymphocytes (%) (Auto) 12 % (24-48) Monocytes (%) (Auto) 8 % (0-9) Eosinophils (%) (Auto) 2 % (0-3) Basophils (%) (Auto) 0 % (0-3) Neutrophils # (Auto) 9.7 x10^3/uL (1.8-7.7) Lymphocytes # (Auto) 1.4 x10^3/uL (1.0-4.8) Monocytes # (Auto) 1.0 x10^3/uL (0.0-1.1) Eosinophils # (Auto) 0.2 x10^3/uL (0.0-0.7) Basophils # (Auto) 0.0 x10^3/uL (0.0-0.2) Sodium Level 137 mmol/L (136-145) Potassium Level 4.5 mmol/L (3.5-5.1) Chloride Level 101 mmol/L (98-107) Carbon Dioxide Level 35 mmol/L (21-32) Anion Gap 1 (6-14) Blood Urea Nitrogen 16 mg/dL (7-20) Creatinine 0.6 mg/dL (0.6-1.0) Estimated GFR (Cockcroft-Gault) 106.3 Glucose Level 129 mg/dL (70-99) Calcium Level 10.5 mg/dL (8.5-10.1) Magnesium Level 2.0 mg/dL (1.8-2.4) O2 Saturation 97 % (92-99) Arterial Blood pH 7.41 (7.35-7.45) Arterial Blood pCO2 at Patient Temp 55 mmHg (35-46) Arterial Blood pO2 at Patient Temp 108 mmHg (75-108) Arterial Blood HCO3 34 mmol/L (21-28) Arterial Blood Base Excess 8 mmol/L (-3-3) FiO2 33 Laboratory Tests Test 10/15/19 12:15 10/15/19 17:30 10/16/19 00:30 10/16/19 06:06 O2 Saturation 95 % (92-99) Arterial Blood pH 7.41 (7.35-7.45) Arterial Blood pCO2 at Patient Temp 54 mmHg (35-46) Arterial Blood pO2 at Patient Temp 79 mmHg (75-108) Arterial Blood HCO3 34 mmol/L (21-28) Arterial Blood Base Excess 8 mmol/L (-3-3) FiO2 33 Glucose (Fingerstick) 135 mg/dL (70-99) 121 mg/dL (70-99) 128 mg/dL (70-99) Test 10/16/19 08:15 10/16/19 08:45 White Blood Count 12.4 x10^3/uL (4.0-11.0) Red Blood Count 3.06 x10^6/uL (3.50-5.40) Hemoglobin 8.5 g/dL (12.0-15.5) Hematocrit 26.0 % (36.0-47.0) Mean Corpuscular Volume 85 fL (79-100) Mean Corpuscular Hemoglobin 28 pg (25-35) Mean Corpuscular Hemoglobin Concent 33 g/dL (31-37) Red Cell Distribution Width 17.7 % (11.5-14.5) Platelet Count 394 x10^3/uL (140-400) Neutrophils (%) (Auto) 78 % (31-73) Lymphocytes (%) (Auto) 12 % (24-48) Monocytes (%) (Auto) 8 % (0-9) Eosinophils (%) (Auto) 2 % (0-3) Basophils (%) (Auto) 0 % (0-3) Neutrophils # (Auto) 9.7 x10^3/uL (1.8-7.7) Lymphocytes # (Auto) 1.4 x10^3/uL (1.0-4.8) Monocytes # (Auto) 1.0 x10^3/uL (0.0-1.1) Eosinophils # (Auto) 0.2 x10^3/uL (0.0-0.7) Basophils # (Auto) 0.0 x10^3/uL (0.0-0.2) Sodium Level 137 mmol/L (136-145) Potassium Level 4.5 mmol/L (3.5-5.1) Chloride Level 101 mmol/L (98-107) Carbon Dioxide Level 35 mmol/L (21-32) Anion Gap 1 (6-14) Blood Urea Nitrogen 16 mg/dL (7-20) Creatinine 0.6 mg/dL (0.6-1.0) Estimated GFR (Cockcroft-Gault) 106.3 Glucose Level 129 mg/dL (70-99) Calcium Level 10.5 mg/dL (8.5-10.1) Magnesium Level 2.0 mg/dL (1.8-2.4) O2 Saturation 97 % (92-99) Arterial Blood pH 7.41 (7.35-7.45) Arterial Blood pCO2 at Patient Temp 55 mmHg (35-46) Arterial Blood pO2 at Patient Temp 108 mmHg (75-108) Arterial Blood HCO3 34 mmol/L (21-28) Arterial Blood Base Excess 8 mmol/L (-3-3) FiO2 33 Microbiology 10/06/19 Blood Culture - Final, Complete NO GROWTH AFTER 5 DAYS 10/03/19 Gram Stain - Final, Complete 10/03/19 Aerobic and Anaerobic Culture - Final, Complete 10/01/19 Gram Stain Evaluation - Final, Complete 10/01/19 Respiratory Culture - Final, Complete 10/01/19 Antimicrobic Susceptibility - Final, Complete 09/25/19 Urine Culture - Final, Complete 09/17/19 Gram Stain - Final, Complete 09/17/19 Aerobic Culture - Final, Complete Medications Current Medications Sodium Chloride 1,000 ml @ 1,000 mls/hr Q1H IV Last administered on 07/04/19at 03:00; Start 07/04/19 at 03:00; Stop 07/04/19 at 03:59; Status DC Ondansetron HCl (Zofran) 4 mg 1X ONCE IVP Last administered on 07/04/19at 03:27; Start 07/04/19 at 03:00; Stop 07/04/19 at 03:01; Status DC Morphine Sulfate (Morphine Sulfate) 4 mg 1X ONCE IV ; Start 07/04/19 at 03:00; Stop 07/04/19 at 03:01; Status Cancel Ketorolac Tromethamine (Toradol 30mg Vial) 30 mg 1X ONCE IV Last administered on 07/04/19at 02:54; Start 07/04/19 at 03:00; Stop 07/04/19 at 03:01; Status DC Fentanyl Citrate (Fentanyl 2ml Vial) 25 mcg 1X ONCE IVP Last administered on 07/04/19at 03:23; Start 07/04/19 at 03:30; Stop 07/04/19 at 03:31; Status DC Fentanyl Citrate (Fentanyl 2ml Vial) 100 mcg STK-MED ONCE .ROUTE ; Start 07/04/19 at 03:18; Stop 07/04/19 at 03:18; Status DC Iohexol (Omnipaque 350 Mg/ml) 90 ml 1X ONCE IV Last administered on 07/04/19at 03:25; Start 07/04/19 at 03:30; Stop 07/04/19 at 03:31; Status DC Info (CONTRAST GIVEN -- Rx MONITORING) 1 each PRN DAILY PRN MC SEE COMMENTS; Start 07/04/19 at 03:30; Stop 07/06/19 at 03:29; Status DC Hydromorphone HCl (Dilaudid) 0.5 mg 1X ONCE IV Last administered on 07/04/19at 03:55; Start 07/04/19 at 04:30; Stop 07/04/19 at 04:32; Status DC Ondansetron HCl (Zofran) 4 mg PRN Q8HRS PRN IV NAUSEA/VOMITING 1ST CHOICE; Start 07/04/19 at 05:00; Stop 07/04/19 at 09:27; Status DC Morphine Sulfate (Morphine Sulfate) 2 mg PRN Q2HR PRN IV SEVERE PAIN 7-10 Last administered on 07/05/19at 12:26; Start 07/04/19 at 05:00; Stop 07/05/19 at 14:15; Status DC Sodium Chloride 1,000 ml @ 125 mls/hr Q8H IV Last administered on 07/04/19at 20:56; Start 07/04/19 at 05:00; Stop 07/05/19 at 04:59; Status DC Hydromorphone HCl (Dilaudid) 0.5 mg PRN Q3HRS PRN IV SEVERE PAIN 7-10 Last administered on 07/05/19at 10:06; Start 07/04/19 at 05:00; Stop 07/05/19 at 12:01; Status DC Piperacillin Sod/ Tazobactam Sod 4.5 gm/Sodium Chloride 100 ml @ 200 mls/hr 1X ONCE IV Last administered on 07/04/19at 05:44; Start 07/04/19 at 06:00; Stop 07/04/19 at 06:29; Status DC Ondansetron HCl (Zofran) 4 mg PRN Q4HRS PRN IV NAUSEA/VOMITING 1ST CHOICE Last administered on 10/15/19at 13:37; Start 07/04/19 at 09:30 Insulin Human Lispro (HumaLOG) 0-9 UNITS Q6HRS SQ Last administered on 10/12/19at 18:05; Start 07/04/19 at 09:30 Dextrose (Dextrose 50%-Water Syringe) 12.5 gm PRN Q15MIN PRN IV SEE COMMENTS; Start 07/04/19 at 09:30 Pantoprazole Sodium (PROTONIX VIAL for IV PUSH) 40 mg DAILYAC IVP Last administered on 10/16/19at 08:23; Start 07/04/19 at 11:30 Prochlorperazine Edisylate (Compazine) 10 mg PRN Q6HRS PRN IV NAUSEA/VOMITING, 2nd CHOICE Last administered on 10/15/19at 10:53; Start 07/04/19 at 17:45 Atenolol (Tenormin) 100 mg DAILY PO ; Start 07/05/19 at 09:00; Stop 07/04/19 at 20:08; Status DC Metoprolol Tartrate (Lopressor Vial) 2.5 mg Q6HRS IVP Last administered on 07/05/19at 05:51; Start 07/04/19 at 20:15; Stop 07/05/19 at 10:02; Status DC Metoprolol Tartrate (Lopressor Vial) 5 mg Q6HRS IVP Last administered on 07/14/19at 00:12; Start 07/05/19 at 10:15; Stop 07/16/19 at 08:48; Status DC Hydromorphone HCl (Dilaudid) 1 mg PRN Q3HRS PRN IV SEVERE PAIN 7-10 Last administered on 07/11/19at 05:13; Start 07/05/19 at 12:00; Stop 07/19/19 at 00:25; Status DC Lidocaine HCl (Buffered Lidocaine 1%) 3 ml STK-MED ONCE .ROUTE ; Start 07/05/19 at 12:55; Stop 07/05/19 at 12:56; Status DC Albumin Human 500 ml @ 125 mls/hr 1X ONCE IV Last administered on 07/05/19at 14:33; Start 07/05/19 at 14:30; Stop 07/05/19 at 18:32; Status DC Norepinephrine Bitartrate 8 mg/ Dextrose 258 ml @ 17.299 mls/ hr CONT PRN IV PER PROTOCOL Last administered on 08/02/19at 12:48; Start 07/05/19 at 15:30; Stop 08/05/19 at 09:19; Status DC Sodium Chloride 1,000 ml @ 125 mls/hr Q8H IV Last administered on 07/05/19at 21:04; Start 07/05/19 at 16:00; Stop 07/06/19 at 02:42; Status DC Albumin Human 500 ml @ 125 mls/hr PRN BID PRN IV After every 2L NSS & BP < 90mm Last administered on 09/24/19at 11:40; Start 07/05/19 at 16:00 Iohexol (Omnipaque 300 Mg/ml) 60 ml 1X ONCE IV Last administered on 07/05/19at 17:20; Start 07/05/19 at 17:00; Stop 07/05/19 at 17:01; Status DC Info (CONTRAST GIVEN -- Rx MONITORING) 1 each PRN DAILY PRN MC SEE COMMENTS; Start 07/05/19 at 17:00; Stop 07/07/19 at 16:59; Status DC Meropenem 1 gm/ Sodium Chloride 100 ml @ 200 mls/hr Q8HRS IV Last administered on 07/06/19at 05:45; Start 07/05/19 at 20:00; Stop 07/06/19 at 08:48; Status DC Furosemide (Lasix) 40 mg 1X ONCE IVP Last administered on 07/05/19at 22:12; Start 07/05/19 at 22:30; Stop 07/05/19 at 22:31; Status DC Calcium Chloride 1000 mg/Sodium Chloride 110 ml @ 220 mls/hr 1X ONCE IV Last administered on 07/05/19at 22:11; Start 07/05/19 at 22:30; Stop 07/05/19 at 22:59; Status DC Albuterol Sulfate (Ventolin Neb Soln) 2.5 mg 1X ONCE NEB Last administered on 07/06/19at 00:56; Start 07/05/19 at 22:30; Stop 07/05/19 at 22:31; Status DC Insulin Human Regular (HumuLIN R VIAL) 5 unit 1X ONCE IV Last administered on 07/05/19at 22:14; Start 07/05/19 at 22:30; Stop 07/05/19 at 22:31; Status DC Magnesium Sulfate 50 ml @ 25 mls/hr 1X ONCE IV Last administered on 07/06/19at 02:57; Start 07/06/19 at 03:00; Stop 07/06/19 at 04:59; Status DC Calcium Gluconate 1000 mg/Sodium Chloride 110 ml @ 220 mls/hr 1X ONCE IV Last administered on 07/06/19at 02:46; Start 07/06/19 at 03:00; Stop 07/06/19 at 03:29; Status DC Sodium Chloride 1,000 ml @ 200 mls/hr Q5H IV Last administered on 07/06/19at 02:46; Start 07/06/19 at 03:00; Stop 07/06/19 at 10:21; Status DC Calcium Gluconate 1000 mg/Sodium Chloride 110 ml @ 220 mls/hr 1X ONCE IV Last administered on 07/06/19at 03:21; Start 07/06/19 at 03:30; Stop 07/06/19 at 03:59; Status DC Sodium Bicarbonate 50 meq/Sodium Chloride 1,050 ml @ 75 mls/hr Q14H IV Last administered on 07/10/19at 21:10; Start 07/06/19 at 07:30; Stop 07/11/19 at 10:28; Status DC Calcium Gluconate 2000 mg/Sodium Chloride 120 ml @ 220 mls/hr 1X ONCE IV Last administered on 07/06/19at 09:05; Start 07/06/19 at 07:30; Stop 07/06/19 at 08:02; Status DC Lidocaine HCl (Xylocaine-Mpf 1% 2ml Vial) 2 ml STK-MED ONCE .ROUTE ; Start 07/06/19 at 08:47; Stop 07/06/19 at 08:47; Status DC Meropenem 500 mg/ Sodium Chloride 50 ml @ 100 mls/hr Q12HR IV Last administered on 07/11/19at 21:01; Start 07/06/19 at 18:00; Stop 07/12/19 at 07:58; Status DC Lidocaine HCl (Buffered Lidocaine 1%) 3 ml STK-MED ONCE .ROUTE ; Start 07/06/19 at 09:46; Stop 07/06/19 at 09:46; Status DC Lidocaine HCl (Buffered Lidocaine 1%) 6 ml 1X ONCE INJ Last administered on 07/06/19at 10:26; Start 07/06/19 at 10:15; Stop 07/06/19 at 10:16; Status DC Info (Tpn Per Pharmacy) 1 each PRN DAILY PRN MC SEE COMMENTS Last administered on 10/16/19at 10:04; Start 07/06/19 at 12:00 Sodium Chloride 1,000 ml @ 1,000 mls/hr Q1H PRN IV hypotension; Start 07/06/19 at 12:07; Stop 07/06/19 at 18:06; Status DC Diphenhydramine HCl (Benadryl) 25 mg 1X PRN PRN IV ITCHING; Start 07/06/19 at 12:15; Stop 07/07/19 at 12:14; Status DC Diphenhydramine HCl (Benadryl) 25 mg 1X PRN PRN IV ITCHING; Start 07/06/19 at 12:15; Stop 07/07/19 at 12:14; Status DC Sodium Chloride 1,000 ml @ 400 mls/hr Q2H30M PRN IV PATENCY; Start 07/06/19 at 12:07; Stop 07/07/19 at 00:06; Status DC Info (PHARMACY MONITORING -- do not chart) 1 each PRN DAILY PRN MC SEE COMMENTS; Start 07/06/19 at 12:15; Stop 07/08/19 at 08:13; Status DC Sodium Chloride 90 meq/Calcium Gluconate 10 meq/ Multivitamins 10 ml/Chromium/ Copper/Manganese/ Seleni/Zn 1 ml/ Total Parenteral Nutrition/Amino Acids/ Dextrose/ Fat Emulsion Intravenous 55.005 ml @ 2.292 mls/hr TPN CONT IV ; Start 07/06/19 at 22:00; Stop 07/06/19 at 12:33; Status DC Info (Tpn Per Pharmacy) 1 each PRN DAILY PRN MC SEE COMMENTS; Start 07/06/19 at 12:30; Status UNV Sodium Chloride 90 meq/Calcium Gluconate 10 meq/ Multivitamins 10 ml/Chromium/ Copper/Manganese/ Seleni/Zn 0.5 ml/ Total Parenteral Nutrition/Amino Acids/Dextrose/ Fat Emulsion Intravenous 1,512 ml @ 63 mls/hr TPN CONT IV Last administered on 07/06/19at 22:06; Start 07/06/19 at 22:00; Stop 07/07/19 at 21:59; Status DC Calcium Carbonate/ Glycine (Tums) 500 mg PRN AFTMEALHC PRN PO INDIGESTION; Start 07/06/19 at 17:45; Stop 08/31/19 at 10:25; Status DC Calcium Gluconate (Calcium Gluconate) 2,000 mg 1X ONCE IVP Last administered on 07/07/19at 02:19; Start 07/07/19 at 02:15; Stop 07/07/19 at 02:16; Status DC Calcium Chloride 3000 mg/Sodium Chloride 1,030 ml @ 50 mls/hr [id number] IV Last administered on 07/09/19at 02:17; Start 07/07/19 at 08:00; Stop 07/09/19 at 15:23; Status DC Lorazepam (Ativan Inj) 1 mg PRN Q4HRS PRN IVP ANXIETY / AGITATION, 2nd choic Last administered on 08/05/19at 03:51; Start 07/07/19 at 09:00; Stop 08/05/19 at 09:19; Status DC Sodium Chloride 1,000 ml @ 1,000 mls/hr Q1H PRN IV hypotension; Start 07/07/19 at 08:56; Stop 07/07/19 at 14:55; Status DC Albumin Human 200 ml @ 200 mls/hr 1X PRN PRN IV Hypotension; Start 07/07/19 at 09:00; Stop 07/07/19 at 14:59; Status DC Diphenhydramine HCl (Benadryl) 25 mg 1X PRN PRN IV ITCHING; Start 07/07/19 at 09:00; Stop 07/08/19 at 08:59; Status DC Diphenhydramine HCl (Benadryl) 25 mg 1X PRN PRN IV ITCHING; Start 07/07/19 at 09:00; Stop 07/08/19 at 08:59; Status DC Sodium Chloride 1,000 ml @ 400 mls/hr Q2H30M PRN IV PATENCY; Start 07/07/19 at 08:56; Stop 07/07/19 at 20:55; Status DC Info (PHARMACY MONITORING -- do not chart) 1 each PRN DAILY PRN MC SEE COMMENTS; Start 07/07/19 at 09:00; Status UNV Info (PHARMACY MONITORING -- do not chart) 1 each PRN DAILY PRN MC SEE COMMENTS; Start 07/07/19 at 09:00; Stop 07/08/19 at 08:13; Status DC Digoxin (Lanoxin) 500 mcg 1X ONCE IV Last administered on 07/07/19at 10:04; Start 07/07/19 at 10:00; Stop 07/07/19 at 10:01; Status DC Digoxin (Lanoxin) 125 mcg 1X ONCE IV Last administered on 07/07/19at 17:10; Start 07/07/19 at 18:00; Stop 07/07/19 at 18:01; Status DC Magnesium Sulfate 100 ml @ 25 mls/hr 1X ONCE IV Last administered on 07/07/19at 12:48; Start 07/07/19 at 13:00; Stop 07/07/19 at 16:59; Status DC Sodium Chloride 90 meq/Magnesium Sulfate 10 meq/ Calcium Gluconate 20 meq/ Multivitamins 10 ml/Chromium/ Copper/Manganese/ Seleni/Zn 0.5 ml/ Total Parenteral Nutrition/Amino Acids/Dextrose/ Fat Emulsion Intravenous 1,512 ml @ 63 mls/hr TPN CONT IV Last administered on 07/07/19at 22:25; Start 07/07/19 at 22:00; Stop 07/08/19 at 21:59; Status DC Sodium Chloride 1,000 ml @ 1,000 mls/hr Q1H PRN IV hypotension; Start 07/08/19 at 08:05; Stop 07/08/19 at 14:04; Status DC Albumin Human 200 ml @ 200 mls/hr 1X ONCE IV Last administered on 07/08/19at 08:57; Start 07/08/19 at 08:15; Stop 07/08/19 at 09:14; Status DC Diphenhydramine HCl (Benadryl) 25 mg 1X PRN PRN IV ITCHING; Start 07/08/19 at 08:15; Stop 07/09/19 at 08:14; Status DC Diphenhydramine HCl (Benadryl) 25 mg 1X PRN PRN IV ITCHING; Start 07/08/19 at 08:15; Stop 07/09/19 at 08:14; Status DC Sodium Chloride 1,000 ml @ 400 mls/hr Q2H30M PRN IV PATENCY; Start 07/08/19 at 08:05; Stop 07/08/19 at 20:04; Status DC Info (PHARMACY MONITORING -- do not chart) 1 each PRN DAILY PRN MC SEE COMMENTS; Start 07/08/19 at 08:15; Stop 07/12/19 at 07:57; Status DC Sodium Chloride 90 meq/Potassium Chloride 15 meq/ Potassium Phosphate 10 mmol/ Magnesium Sulfate 10 meq/Calcium Gluconate 20 meq/ Multivitamins 10 ml/Chromium/ Copper/Manganese/ Seleni/Zn 0.5 ml/ Total Parenteral Nutrition/Amino Acids/Dextrose/ Fat Emulsion Intravenous 1,512 ml @ 63 mls/hr TPN CONT IV Last administered on 07/08/19at 21:01; Start 07/08/19 at 22:00; Stop 07/09/19 at 21:59; Status DC Potassium Chloride/Water 100 ml @ 100 mls/hr 1X ONCE IV Last administered on 07/08/19at 14:09; Start 07/08/19 at 14:00; Stop 07/08/19 at 14:59; Status DC Benzocaine (Hurricaine One) 1 spray 1X ONCE MM Last administered on 07/08/19at 16:38; Start 07/08/19 at 14:30; Stop 07/08/19 at 14:31; Status DC Lidocaine HCl (Glydo (Lidocaine) Jelly) 1 ramu 1X ONCE MM Last administered on 07/08/19at 16:38; Start 07/08/19 at 14:30; Stop 07/08/19 at 14:31; Status DC Linezolid/Dextrose 300 ml @ 300 mls/hr Q12HR IV Last administered on 07/14/19at 21:04; Start 07/08/19 at 20:00; Stop 07/15/19 at 07:50; Status DC Acetaminophen (Tylenol) 650 mg PRN Q6HRS PRN PO MILD PAIN / TEMP; Start 07/09/19 at 03:30; Stop 07/09/19 at 03:36; Status DC Acetaminophen (Tylenol) 650 mg PRN Q6HRS PRN PEG MILD PAIN / TEMP Last administered on 08/04/19at 19:56; Start 07/09/19 at 03:36; Stop 08/31/19 at 10:25; Status DC Sodium Chloride 1,000 ml @ 1,000 mls/hr Q1H PRN IV hypotension; Start 07/09/19 at 07:50; Stop 07/09/19 at 13:49; Status DC Albumin Human 200 ml @ 200 mls/hr 1X PRN PRN IV Hypotension; Start 07/09/19 at 08:00; Stop 07/09/19 at 13:59; Status DC Sodium Chloride (Normal Saline Flush) 10 ml 1X PRN PRN IV AP catheter pack; Start 07/09/19 at 08:00; Stop 07/10/19 at 07:59; Status DC Sodium Chloride (Normal Saline Flush) 10 ml 1X PRN PRN IV ABSORPTION AND ADSORPTION ENGINEER catheter pack; Start 07/09/19 at 08:00; Stop 07/10/19 at 07:59; Status DC Sodium Chloride 1,000 ml @ 400 mls/hr Q2H30M PRN IV PATENCY; Start 07/09/19 at 07:50; Stop 07/09/19 at 19:49; Status DC Info (PHARMACY MONITORING -- do not chart) 1 each PRN DAILY PRN MC SEE COMMENTS; Start 07/09/19 at 08:00; Status UNV Info (PHARMACY MONITORING -- do not chart) 1 each PRN DAILY PRN MC SEE COMMENTS; Start 07/09/19 at 08:00; Stop 07/11/19 at 08:25; Status DC Sodium Chloride 90 meq/Potassium Chloride 15 meq/ Potassium Phosphate 10 mmol/ Magnesium Sulfate 10 meq/Calcium Gluconate 20 meq/ Multivitamins 10 ml/Chromium/ Copper/Manganese/ Seleni/Zn 0.5 ml/ Total Parenteral Nutrition/Amino Acids/Dextrose/ Fat Emulsion Intravenous 1,512 ml @ 63 mls/hr TPN CONT IV Las t administered on 07/09/19at 20:57; Start 07/09/19 at 22:00; Stop 07/10/19 at 21:59; Status DC Sodium Chloride 90 meq/Potassium Chloride 15 meq/ Potassium Phosphate 15 mmol/ Magnesium Sulfate 10 meq/Calcium Gluconate 20 meq/ Multivitamins 10 ml/Chromium/ Copper/Manganese/ Seleni/Zn 0.5 ml/ Total Parenteral Nutrition/Amino Acids/Dextrose/ Fat Emulsion Intravenous 1,512 ml @ 63 mls/hr TPN CONT IV ; Start 07/10/19 at 22:00; Stop 07/10/19 at 14:16; Status DC Sodium Chloride 90 meq/Potassium Chloride 15 meq/ Potassium Phosphate 15 mmol/ Magnesium Sulfate 10 meq/Calcium Gluconate 20 meq/ Multivitamins 10 ml/Chromium/ Copper/Manganese/ Seleni/Zn 0.5 ml/ Total Parenteral Nutrition/Amino Acids/Dextrose/ Fat Emulsion Intravenous 1,200 ml @ 50 mls/hr TPN CONT IV ; Start 07/10/19 at 22:00; Stop 07/10/19 at 14:17; Status DC Sodium Chloride 90 meq/Potassium Chloride 15 meq/ Potassium Phosphate 10 mmol/ Magnesium Sulfate 10 meq/Calcium Gluconate 20 meq/ Multivitamins 10 ml/Chromium/ Copper/Manganese/ Seleni/Zn 0.5 ml/ Total Parenteral Nutrition/Amino Acids/Dextrose/ Fat Emulsion Intravenous 1,200 ml @ 50 mls/hr TPN CONT IV Last administered on 07/10/19at 23:29; Start 07/10/19 at 22:00; Stop 07/11/19 at 21:59; Status DC Sodium Chloride 1,000 ml @ 1,000 mls/hr Q1H PRN IV hypotension; Start 07/11/19 at 07:28; Stop 07/11/19 at 13:27; Status DC Albumin Human 200 ml @ 200 mls/hr 1X ONCE IV Last administered on 07/11/19at 08:51; Start 07/11/19 at 07:30; Stop 07/11/19 at 08:29; Status DC Diphenhydramine HCl (Benadryl) 25 mg 1X PRN PRN IV ITCHING; Start 07/11/19 at 07:30; Stop 07/12/19 at 07:29; Status DC Diphenhydramine HCl (Benadryl) 25 mg 1X PRN PRN IV ITCHING; Start 07/11/19 at 07:30; Stop 07/12/19 at 07:29; Status DC Sodium Chloride 1,000 ml @ 400 mls/hr Q2H30M PRN IV PATENCY; Start 07/11/19 at 07:28; Stop 07/11/19 at 19:27; Status DC Info (PHARMACY MONITORING -- do not chart) 1 each PRN DAILY PRN MC SEE COMMENTS; Start 07/11/19 at 07:30; Stop 07/22/19 at 13:01; Status DC Metronidazole 100 ml @ 100 mls/hr Q6HRS IV Last administered on 07/27/19at 06:26; Start 07/11/19 at 08:30; Stop 07/27/19 at 09:58; Status DC Micafungin Sodium 100 mg/Dextrose 100 ml @ 100 mls/hr Q24H IV Last administered on 08/18/19at 08:18; Start 07/11/19 at 09:00; Stop 08/18/19 at 20:58; Status DC Propofol 0 ml @ As Directed STK-MED ONCE IV ; Start 07/11/19 at 07:53; Stop 07/11/19 at 07:53; Status DC Etomidate (Amidate) 20 mg STK-MED ONCE IV ; Start 07/11/19 at 07:53; Stop 07/11/19 at 07:54; Status DC Midazolam HCl (Versed) 5 mg STK-MED ONCE .ROUTE ; Start 07/11/19 at 07:57; Stop 07/11/19 at 07:57; Status DC Fentanyl Citrate 30 ml @ 0 mls/hr CONT PRN IV SEE PROTOCOL Last administered on 08/05/19at 06:12; Start 07/11/19 at 08:15; Stop 08/05/19 at 09:19; Status DC Artificial Tears (Artificial Tears) 1 drop PRN Q1HR PRN OU DRY EYE, 1st choice; Start 07/11/19 at 08:15; Stop 08/17/19 at 05:31; Status DC Midazolam HCl 50 mg/Sodium Chloride 50 ml @ 0 mls/hr CONT PRN IV SEE PROTOCOL Last administered on 07/14/19at 22:39; Start 07/11/19 at 08:15; Stop 07/16/19 at 15:59; Status DC Etomidate (Amidate) 8 mg 1X ONCE IV Last administered on 07/11/19at 08:33; Start 07/11/19 at 08:30; Stop 07/11/19 at 08:31; Status DC Succinylcholine Chloride (Anectine) 120 mg 1X ONCE IV Last administered on 07/11/19at 08:34; Start 07/11/19 at 08:30; Stop 07/11/19 at 08:31; Status DC Midazolam HCl (Versed) 5 mg 1X ONCE IV ; Start 07/11/19 at 08:30; Stop 07/11/19 at 08:31; Status DC Potassium Chloride 15 meq/ Bicarbonate Dialysis Soln w/ out KCl 5,007.5 ml @ 1,000 mls/ hr Q5H1M IV Last administered on 07/12/19at 11:11; Start 07/11/19 at 12:00; Stop 07/12/19 at 11:15; Status DC Potassium Chloride 15 meq/ Bicarbonate Dialysis Soln w/ out KCl 5,007.5 ml @ 1,000 mls/ hr Q5H1M IV Last administered on 07/12/19at 11:12; Start 07/11/19 at 12:00; Stop 07/12/19 at 11:17; Status DC Potassium Chloride 15 meq/ Bicarbonate Dialysis Soln w/ out KCl 5,007.5 ml @ 1,000 mls/ hr Q5H1M IV Last administered on 07/12/19at 11:11; Start 07/11/19 at 12:00; Stop 07/12/19 at 11:19; Status DC Sodium Chloride 90 meq/Potassium Chloride 15 meq/ Potassium Phosphate 10 mmol/ Magnesium Sulfate 10 meq/Calcium Gluconate 20 meq/ Multivitamins 10 ml/Chromium/ Copper/Manganese/ Seleni/Zn 0.5 ml/ Total Parenteral Nutrition/Amino Acids/Dextrose/ Fat Emulsion Intravenous 1,400 ml @ 58.333 mls/ hr TPN CONT IV Last administered on 07/11/19at 21:42; Start 07/11/19 at 22:00; Stop 07/12/19 at 21:59; Status DC Heparin Sodium (Porcine) (Heparin Sodium) 5,000 unit Q8HRS SQ Last administered on 07/16/19at 05:55; Start 07/11/19 at 15:00; Stop 07/16/19 at 13:28; Status DC Meropenem 500 mg/ Sodium Chloride 50 ml @ 100 mls/hr Q6HRS IV Last administered on 07/13/19at 06:00; Start 07/12/19 at 09:00; Stop 07/13/19 at 07:29; Status DC Potassium Phosphate 20 mmol/ Sodium Chloride 106.6667 ml @ 51.667 m... 1X ONCE IV Last administered on 07/12/19at 11:22; Start 07/12/19 at 10:15; Stop 07/12/19 at 12:18; Status DC Acetaminophen (Tylenol Supp) 650 mg PRN Q6HRS PRN ID MILD PAIN / TEMP > 100.3'F Last administered on 10/06/19at 10:16; Start 07/12/19 at 10:30 Potassium Chloride/Water 100 ml @ 100 mls/hr Q1H IV Last administered on 07/12/19at 12:12; Start 07/12/19 at 11:00; Stop 07/12/19 at 12:59; Status DC Potassium Chloride 20 meq/ Bicarbonate Dialysis Soln w/ out KCl 5,010 ml @ 1,000 mls/hr Q5H1M IV Last administered on 07/13/19at 08:48; Start 07/12/19 at 12:00; Stop 07/13/19 at 13:03; Status DC Potassium Chloride 20 meq/ Bicarbonate Dialysis Soln w/ out KCl 5,010 ml @ 1,000 mls/hr Q5H1M IV Last administered on 07/17/19at 14:52; Start 07/12/19 at 11:30; Stop 07/17/19 at 19:59; Status DC Potassium Chloride 20 meq/ Bicarbonate Dialysis Soln w/ out KCl 5,010 ml @ 1,000 mls/hr Q5H1M IV Last administered on 07/17/19at 14:53; Start 07/12/19 at 11:30; Stop 07/17/19 at 19:59; Status DC Sodium Chloride 90 meq/Potassium Chloride 15 meq/ Potassium Phosphate 15 mmol/ Magnesium Sulfate 10 meq/Calcium Gluconate 15 meq/ Multivitamins 10 ml/Chromium/ Copper/Manganese/ Seleni/Zn 0.5 ml/ Total Parenteral Nutrition/Amino Acids/Dextrose/ Fat Emulsion Intravenous 1,400 ml @ 58.333 mls/ hr TPN CONT IV Last administered on 07/12/19at 22:17; Start 07/12/19 at 22:00; Stop 07/13/19 at 21:59; Status DC Cefepime HCl (Maxipime) 2 gm Q12HR IVP Last administered on 07/26/19at 20:56; Start 07/13/19 at 09:00; Stop 07/27/19 at 09:58; Status DC Daptomycin 500 mg/ Sodium Chloride 50 ml @ 100 mls/hr Q48H IV Last administered on 07/29/19at 09:57; Start 07/13/19 at 08:30; Stop 07/29/19 at 10:07; Status DC Lidocaine HCl (Buffered Lidocaine 1%) 3 ml 1X ONCE INJ Last administered on 07/13/19at 10:27; Start 07/13/19 at 10:30; Stop 07/13/19 at 10:31; Status DC Potassium Phosphate 20 mmol/ Sodium Chloride 106.6667 ml @ 51.667 m... 1X ONCE IV Last administered on 07/13/19at 12:51; Start 07/13/19 at 13:00; Stop 07/13/19 at 15:03; Status DC Sodium Chloride 90 meq/Potassium Chloride 15 meq/ Potassium Phosphate 18 mmol/ Magnesium Sulfate 8 meq/Calcium Gluconate 15 meq/ Multivitamins 10 ml/Chromium/ Copper/Manganese/ Seleni/Zn 0.5 ml/ Total Parenteral Nutrition/Amino Acids/Dextrose/ Fat Emulsion Intravenous 1,400 ml @ 58.333 mls/ hr TPN CONT IV Last administered on 07/13/19at 22:16; Start 07/13/19 at 22:00; Stop 07/14/19 at 21:59; Status DC Potassium Chloride 20 meq/ Bicarbonate Dialysis Soln w/ out KCl 5,010 ml @ 1,000 mls/hr Q5H1M IV Last administered on 07/17/19at 14:54; Start 07/13/19 at 16:00; Stop 07/17/19 at 19:59; Status DC Multi-Ingred Cream/Lotion/Oil/ Oint (Artificial Tears Eye Ointment) 1 ramu PRN Q1HR PRN OU DRY EYE, 2nd choice Last administered on 08/01/19at 08:19; Start 07/13/19 at 17:30; Stop 09/21/19 at 14:39; Status DC Sodium Chloride 90 meq/Potassium Chloride 15 meq/ Potassium Phosphate 18 mmol/ Magnesium Sulfate 8 meq/Calcium Gluconate 15 meq/ Multivitamins 10 ml/Chromium/ Copper/Manganese/ Seleni/Zn 0.5 ml/ Total Parenteral Nutrition/Amino Acids/Dextrose/ Fat Emulsion Intravenous 1,400 ml @ 58.333 mls/ hr TPN CONT IV Last administered on 07/14/19at 22:00; Start 07/14/19 at 22:00; Stop 07/15/19 at 21:59; Status DC Albumin Human 500 ml @ 125 mls/hr 1X ONCE IV ; Start 07/14/19 at 14:15; Stop 07/14/19 at 18:14; Status DC Sodium Chloride 90 meq/Potassium Chloride 15 meq/ Potassium Phosphate 18 mmol/ Magnesium Sulfate 8 meq/Calcium Gluconate 15 meq/ Multivitamins 10 ml/Chromium/ Copper/Manganese/ Seleni/Zn 0.5 ml/ Insulin Human Regular 10 unit/ Total Parenteral Nutrition/Amino Acids/Dextrose/ Fat Emulsion Intravenous 1,400 ml @ 58.333 mls/ hr TPN CONT IV Last administered on 07/15/19at 21:43; Start 07/15/19 at 22:00; Stop 07/16/19 at 21:59; Status DC Lidocaine HCl (Buffered Lidocaine 1%) 3 ml STK-MED ONCE .ROUTE ; Start 07/13/19 at 10:00; Stop 07/15/19 at 13:57; Status DC Midazolam HCl 100 mg/Sodium Chloride 100 ml @ 7 mls/hr CONT PRN IV SEE PROTOCOL Last administered on 07/27/19at 15:35; Start 07/16/19 at 16:00; Stop 09/21/19 at 14:38; Status DC Sodium Chloride 90 meq/Potassium Chloride 15 meq/ Potassium Phosphate 18 mmol/ Magnesium Sulfate 8 meq/Calcium Gluconate 15 meq/ Multivitamins 10 ml/Chromium/ Copper/Manganese/ Seleni/Zn 0.5 ml/ Insulin Human Regular 15 unit/ Total Parenteral Nutrition/Amino Acids/Dextrose/ Fat Emulsion Intravenous 1,400 ml @ 58.333 mls/ hr TPN CONT IV Last administered on 07/16/19at 20:34; Start 07/16/19 at 22:00; Stop 07/17/19 at 21:59; Status DC Info (Icu Electrolyte Protocol) 1 ea CONT PRN PRN MC PER PROTOCOL; Start 07/17/19 at 13:15 Sodium Chloride 90 meq/Potassium Chloride 15 meq/ Potassium Phosphate 18 mmol/ Magnesium Sulfate 8 meq/Calcium Gluconate 15 meq/ Multivitamins 10 ml/Chromium/ Copper/Manganese/ Seleni/Zn 0.5 ml/ Insulin Human Regular 15 unit/ Total Parenteral Nutrition/Amino Acids/Dextrose/ Fat Emulsion Intravenous 1,400 ml @ 58.333 mls/ hr TPN CONT IV Last administered on 07/17/19at 22:05; Start 07/17/19 at 22:00; Stop 07/18/19 at 21:59; Status DC Potassium Chloride 15 meq/ Bicarbonate Dialysis Soln w/ out KCl 5,007.5 ml @ 1,000 mls/ hr Q5H1M IV Last administered on 07/20/19at 18:14; Start 07/17/19 at 20:00; Stop 07/21/19 at 13:08; Status DC Potassium Chloride 15 meq/ Bicarbonate Dialysis Soln w/ out KCl 5,007.5 ml @ 1,000 mls/ hr Q5H1M IV Last administered on 07/20/19at 18:14; Start 07/17/19 at 20:00; Stop 07/21/19 at 13:08; Status DC Potassium Chloride 15 meq/ Bicarbonate Dialysis Soln w/ out KCl 5,007.5 ml @ 1,000 mls/ hr Q5H1M IV Last administered on 07/20/19at 18:14; Start 07/17/19 at 20:00; Stop 07/21/19 at 13:08; Status DC Iohexol (Omnipaque 240 Mg/ml) 30 ml 1X ONCE PO Last administered on 07/18/19at 11:30; Start 07/18/19 at 11:30; Stop 07/18/19 at 11:33; Status DC Info (CONTRAST GIVEN -- Rx MONITORING) 1 each PRN DAILY PRN MC SEE COMMENTS; Start 07/18/19 at 11:45; Stop 07/20/19 at 11:44; Status DC Sodium Chloride 90 meq/Potassium Chloride 15 meq/ Potassium Phosphate 18 mmol/ Magnesium Sulfate 8 meq/Calcium Gluconate 15 meq/ Multivitamins 10 ml/Chromium/ Copper/Manganese/ Seleni/Zn 0.5 ml/ Insulin Human Regular 15 unit/ Total Parenteral Nutrition/Amino Acids/Dextrose/ Fat Emulsion Intravenous 1,400 ml @ 58.333 mls/ hr TPN CONT IV Last administered on 07/18/19at 21:47; Start 07/18/19 at 22:00; Stop 07/19/19 at 21:59; Status DC Sodium Chloride 90 meq/Potassium Chloride 15 meq/ Potassium Phosphate 18 mmol/ Magnesium Sulfate 8 meq/Calcium Gluconate 15 meq/ Multivitamins 10 ml/Chromium/ Copper/Manganese/ Seleni/Zn 0.5 ml/ Insulin Human Regular 20 unit/ Total Parenteral Nutrition/Amino Acids/Dextrose/ Fat Emulsion Intravenous 1,400 ml @ 58.333 mls/ hr TPN CONT IV Last administered on 07/19/19at 21:36; Start 07/19/19 at 22:00; Stop 07/20/19 at 21:59; Status DC Alteplase, Recombinant (Cathflo For Central Catheter Clearance) 1 mg 1X ONCE INT CAT Last administered on 07/19/19at 20:03; Start 07/19/19 at 19:30; Stop 07/19/19 at 19:46; Status DC Alteplase, Recombinant (Cathflo For Central Catheter Clearance) 1 mg 1X ONCE INT CAT Last administered on 07/19/19at 22:05; Start 07/19/19 at 22:00; Stop 07/19/19 at 22:01; Status DC Sodium Chloride 90 meq/Potassium Chloride 15 meq/ Potassium Phosphate 18 mmol/ Magnesium Sulfate 8 meq/Calcium Gluconate 15 meq/ Multivitamins 10 ml/Chromium/ Copper/Manganese/ Seleni/Zn 0.5 ml/ Insulin Human Regular 20 unit/ Total Parenteral Nutrition/Amino Acids/Dextrose/ Fat Emulsion Intravenous 1,400 ml @ 58.333 mls/ hr TPN CONT IV Last administered on 07/20/19at 21:30; Start 07/20/19 at 22:00; Stop 07/21/19 at 21:59; Status DC Dexmedetomidine HCl 400 mcg/ Sodium Chloride 100 ml @ 0 mls/hr CONT PRN IV ANXIETY / AGITATION Last administered on 09/17/19at 12:57; Start 07/21/19 at 08:15; Stop 09/17/19 at 18:31; Status DC Sodium Chloride 500 ml @ 500 mls/hr 1X PRN PRN IV ELEVATED BP, SEE COMMENTS; Start 07/21/19 at 08:15 Atropine Sulfate (ATROPINE 0.5mg SYRINGE) 0.5 mg PRN Q5MIN PRN IV SEE COMMENTS; Start 07/21/19 at 08:15 Furosemide (Lasix) 20 mg 1X ONCE IVP Last administered on 07/21/19at 08:19; Start 07/21/19 at 08:15; Stop 07/21/19 at 08:16; Status DC Lidocaine HCl (Buffered Lidocaine 1%) 3 ml STK-MED ONCE .ROUTE ; Start 07/21/19 at 08:39; Stop 07/21/19 at 08:39; Status DC Lidocaine HCl (Buffered Lidocaine 1%) 6 ml 1X ONCE INJ Last administered on 07/21/19at 09:05; Start 07/21/19 at 09:00; Stop 07/21/19 at 09:06; Status DC Sodium Chloride 90 meq/Potassium Chloride 15 meq/ Potassium Phosphate 18 mmol/ Magnesium Sulfate 8 meq/Calcium Gluconate 15 meq/ Multivitamins 10 ml/Chromium/ Copper/Manganese/ Seleni/Zn 0.5 ml/ Insulin Human Regular 20 unit/ Total Parenteral Nutrition/Amino Acids/Dextrose/ Fat Emulsion Intravenous 1,400 ml @ 58.333 mls/ hr TPN CONT IV Last administered on 07/21/19at 22:45; Start 07/21/19 at 22:00; Stop 07/22/19 at 21:59; Status DC Sodium Chloride 1,000 ml @ 1,000 mls/hr Q1H PRN IV hypotension; Start 07/22/19 at 07:30; Stop 07/22/19 at 13:29; Status DC Albumin Human 200 ml @ 200 mls/hr 1X PRN PRN IV Hypotension Last administered on 07/22/19at 09:36; Start 07/22/19 at 07:30; Stop 07/22/19 at 13:29; Status DC Sodium Chloride (Normal Saline Flush) 10 ml 1X PRN PRN IV AP catheter pack; Start 07/22/19 at 07:30; Stop 07/22/19 at 21:29; Status DC Sodium Chloride (Normal Saline Flush) 10 ml 1X PRN PRN IV ABSORPTION AND ADSORPTION ENGINEER catheter pack; Start 07/22/19 at 07:30; Stop 07/23/19 at 07:29; Status DC Sodium Chloride 1,000 ml @ 400 mls/hr Q2H30M PRN IV PATENCY; Start 07/22/19 at 07:30; Stop 07/22/19 at 19:29; Status DC Info (PHARMACY MONITORING -- do not chart) 1 each PRN DAILY PRN MC SEE COMMENTS; Start 07/22/19 at 07:30; Stop 07/22/19 at 13:02; Status DC Info (PHARMACY MONITORING -- do not chart) 1 each PRN DAILY PRN MC SEE COMMENTS; Start 07/22/19 at 07:30; Stop 07/24/19 at 12:45; Status DC Sodium Chloride 90 meq/Potassium Chloride 15 meq/ Potassium Phosphate 10 mmol/ Magnesium Sulfate 8 meq/Calcium Gluconate 15 meq/ Multivitamins 10 ml/Chromium/ Copper/Manganese/ Seleni/Zn 0.5 ml/ Insulin Human Regular 25 unit/ Total Pa renteral Nutrition/Amino Acids/Dextrose/ Fat Emulsion Intravenous 1,400 ml @ 58.333 mls/ hr TPN CONT IV Last administered on 07/22/19at 22:19; Start 07/22/19 at 22:00; Stop 07/23/19 at 21:59; Status DC Heparin Sodium (Porcine) (Heparin Sodium) 5,000 unit Q12HR SQ Last administered on 08/14/19at 08:59; Start 07/22/19 at 21:00; Stop 08/14/19 at 10:05; Status DC Ondansetron HCl (Zofran) 4 mg PRN Q6HRS PRN IV NAUSEA/VOMITING; Start 07/25/19 at 07:00; Stop 07/26/19 at 06:59; Status DC Fentanyl Citrate (Fentanyl 2ml Vial) 25 mcg PRN Q5MIN PRN IV MILD PAIN 1-3; Start 07/25/19 at 07:00; Stop 07/26/19 at 06:59; Status DC Fentanyl Citrate (Fentanyl 2ml Vial) 50 mcg PRN Q5MIN PRN IV MODERATE TO SEVERE PAIN; Start 07/25/19 at 07:00; Stop 07/26/19 at 06:59; Status DC Ringer's Solution 1,000 ml @ 30 mls/hr Q24H IV ; Start 07/25/19 at 07:00; Stop 07/25/19 at 18:59; Status DC Lidocaine HCl (Xylocaine-Mpf 1% 2ml Vial) 2 ml PRN 1X PRN ID PRIOR TO IV START; Start 07/25/19 at 07:00; Stop 07/26/19 at 06:59; Status DC Prochlorperazine Edisylate (Compazine) 5 mg PACU PRN PRN IV NAUSEA, MRX1; Start 07/25/19 at 07:00; Stop 07/26/19 at 06:59; Status DC Sodium Chloride 1,000 ml @ 1,000 mls/hr Q1H PRN IV hypotension; Start 07/23/19 at 09:10; Stop 07/23/19 at 15:09; Status DC Albumin Human 200 ml @ 200 mls/hr 1X PRN PRN IV Hypotension Last administered on 07/23/19at 10:10; Start 07/23/19 at 09:15; Stop 07/23/19 at 15:14; Status DC Sodium Chloride 1,000 ml @ 400 mls/hr Q2H30M PRN IV PATENCY; Start 07/23/19 at 09:10; Stop 07/23/19 at 21:09; Status DC Info (PHARMACY MONITORING -- do not chart) 1 each PRN DAILY PRN MC SEE COMMENTS; Start 07/23/19 at 09:15; Stop 07/24/19 at 12:45; Status DC Info (PHARMACY MONITORING -- do not chart) 1 each PRN DAILY PRN MC SEE COMMENTS; Start 07/23/19 at 09:15; Stop 07/24/19 at 12:45; Status DC Sodium Chloride 90 meq/Potassium Chloride 15 meq/ Potassium Phosphate 10 mmol/ Magnesium Sulfate 8 meq/Calcium Gluconate 15 meq/ Multivitamins 10 ml/Chromium/ Copper/Manganese/ Seleni/Zn 0.5 ml/ Insulin Human Regular 25 unit/ Total Parenteral Nutrition/Amino Acids/Dextrose/ Fat Emulsion Intravenous 1,400 ml @ 58.333 mls/ hr TPN CONT IV Last administered on 07/23/19at 22:10; Start 07/23/19 at 22:00; Stop 07/24/19 at 21:59; Status DC Magnesium Sulfate 50 ml @ 25 mls/hr PRN DAILY PRN IV for Mag < 1.7 on am labs Last administered on 10/06/19at 10:57; Start 07/24/19 at 09:15 Sodium Chloride 90 meq/Potassium Chloride 15 meq/ Potassium Phosphate 10 mmol/ Magnesium Sulfate 8 meq/Calcium Gluconate 15 meq/ Multivitamins 10 ml/Chromium/ Copper/Manganese/ Seleni/Zn 0.5 ml/ Insulin Human Regular 25 unit/ Total Parenteral Nutrition/Amino Acids/Dextrose/ Fat Emulsion Intravenous 1,400 ml @ 58.333 mls/ hr TPN CONT IV Last administered on 07/24/19at 21:20; Start 07/24/19 at 22:00; Stop 07/25/19 at 21:59; Status DC Sodium Chloride 1,000 ml @ 1,000 mls/hr Q1H PRN IV hypotension; Start 07/24/19 at 12:23; Stop 07/24/19 at 18:22; Status DC Albumin Human 200 ml @ 200 mls/hr 1X ONCE IV Last administered on 07/24/19at 13:34; Start 07/24/19 at 12:30; Stop 07/24/19 at 13:29; Status DC Diphenhydramine HCl (Benadryl) 25 mg 1X PRN PRN IV ITCHING; Start 07/24/19 at 12:30; Stop 07/25/19 at 12:29; Status DC Diphenhydramine HCl (Benadryl) 25 mg 1X PRN PRN IV ITCHING; Start 07/24/19 at 12:30; Stop 07/25/19 at 12:29; Status DC Info (PHARMACY MONITORING -- do not chart) 1 each PRN DAILY PRN MC SEE COMMENTS; Start 07/24/19 at 12:30; Status Cancel Bupivacaine HCl/ Epinephrine Bitart (Sensorcain-Epi 0.5%-1:[id number] Mpf) 30 ml STK-MED ONCE .ROUTE Last administered on 07/25/19at 11:44; Start 07/25/19 at 11:00; Stop 07/25/19 at 11:01; Status DC Cellulose (Surgicel Fibrillar 1x2) 1 each STK-MED ONCE .ROUTE ; Start 07/25/19 at 11:00; Stop 07/25/19 at 11:01; Status DC Sodium Chloride 90 meq/Potassium Chloride 15 meq/ Potassium Phosphate 10 mmol/ Magnesium Sulfate 12 meq/Calcium Gluconate 15 meq/ Multivitamins 10 ml/Chromium/ Copper/Manganese/ Seleni/Zn 0.5 ml/ Insulin Human Regular 25 unit/ Total Parenteral Nutrition/Amino Acids/Dextrose/ Fat Emulsion Intravenous 1,400 ml @ 58.333 mls/ hr TPN CONT IV Last administered on 07/25/19at 22:24; Start 07/25/19 at 22:00; Stop 07/26/19 at 21:59; Status DC Propofol 20 ml @ As Directed STK-MED ONCE IV ; Start 07/25/19 at 11:07; Stop 07/25/19 at 11:07; Status DC Cellulose (Surgicel Hemostat 4x8) 1 each STK-MED ONCE .ROUTE Last administered on 07/25/19at 11:44; Start 07/25/19 at 11:55; Stop 07/25/19 at 11:56; Status DC Sevoflurane (Ultane) 60 ml STK-MED ONCE IH ; Start 07/25/19 at 12:46; Stop 07/25/19 at 12:46; Status DC Sodium Chloride 1,000 ml @ 1,000 mls/hr Q1H PRN IV hypotension; Start 07/25/19 at 13:51; Stop 07/25/19 at 19:50; Status DC Albumin Human 200 ml @ 200 mls/hr 1X PRN PRN IV Hypotension Last administered on 07/25/19at 14:51; Start 07/25/19 at 14:00; Stop 07/25/19 at 19:59; Status DC Diphenhydramine HCl (Benadryl) 25 mg 1X PRN PRN IV ITCHING; Start 07/25/19 at 14:00; Stop 07/26/19 at 13:59; Status DC Diphenhydramine HCl (Benadryl) 25 mg 1X PRN PRN IV ITCHING; Start 07/25/19 at 14:00; Stop 07/26/19 at 13:59; Status DC Sodium Chloride 1,000 ml @ 400 mls/hr Q2H30M PRN IV PATENCY; Start 07/25/19 at 13:51; Stop 07/26/19 at 01:50; Status DC Info (PHARMACY MONITORING -- do not chart) 1 each PRN DAILY PRN MC SEE COMMENTS; Start 07/25/19 at 14:00; Stop 07/28/19 at 08:16; Status DC Heparin Sodium (Porcine) (Hep Lock Adult) 500 unit STK-MED ONCE IVP ; Start 07/26/19 at 09:29; Stop 07/26/19 at 09:30; Status DC Sodium Chloride 1,000 ml @ 1,000 mls/hr Q1H PRN IV hypotension; Start 07/26/19 at 10:43; Stop 07/26/19 at 16:42; Status DC Sodium Chloride 1,000 ml @ 400 mls/hr Q2H30M PRN IV PATENCY; Start 07/26/19 at 10:43; Stop 07/26/19 at 22:42; Status DC Info (PHARMACY MONITORING -- do not chart) 1 each PRN DAILY PRN MC SEE COMMENTS; Start 07/26/19 at 10:45; Status UNV Info (PHARMACY MONITORING -- do not chart) 1 each PRN DAILY PRN MC SEE COMMENTS; Start 07/26/19 at 10:45; Status UNV Sodium Chloride 90 meq/Potassium Chloride 15 meq/ Magnesium Sulfate 12 meq/Calcium Gluconate 15 meq/ Multivitamins 10 ml/Chromium/ Copper/Manganese/ Seleni/Zn 0.5 ml/ Insulin Human Regular 25 unit/ Total Parenteral Nutrition/Amino Acids/Dextrose/ Fat Emulsion Intravenous 1,400 ml @ 58.333 mls/ hr TPN CONT IV Last administered on 07/26/19at 22:13; Start 07/26/19 at 22:00; Stop 07/27/19 at 21:59; Status DC Sodium Chloride 1,000 ml @ 1,000 mls/hr Q1H PRN IV hypotension; Start 07/27/19 at 07:50; Stop 07/27/19 at 13:49; Status DC Albumin Human 200 ml @ 200 mls/hr 1X ONCE IV ; Start 07/27/19 at 08:00; Stop 07/27/19 at 08:53; Status DC Diphenhydramine HCl (Benadryl) 25 mg 1X PRN PRN IV ITCHING; Start 07/27/19 at 08:00; Stop 07/28/19 at 07:59; Status DC Diphenhydramine HCl (Benadryl) 25 mg 1X PRN PRN IV ITCHING; Start 07/27/19 at 08:00; Stop 07/28/19 at 07:59; Status DC Info (PHARMACY MONITORING -- do not chart) 1 each PRN DAILY PRN MC SEE COMMENTS; Start 07/27/19 at 08:00; Stop 07/28/19 at 08:16; Status DC Albumin Human 50 ml @ 50 mls/hr 1X ONCE IV ; Start 07/27/19 at 08:53; Stop 07/27/19 at 08:56; Status DC Albumin Human 200 ml @ 50 mls/hr PRN 1X PRN IV HYPOTENSION Last administered on 08/02/19at 11:54; Start 07/27/19 at 09:00; Stop 09/08/19 at 11:14; Status DC Meropenem 500 mg/ Sodium Chloride 50 ml @ 100 mls/hr Q12H IV Last administered on 08/16/19at 10:45; Start 07/27/19 at 10:00; Stop 08/16/19 at 12:37; Status DC Sodium Chloride 90 meq/Magnesium Sulfate 12 meq/ Calcium Gluconate 15 meq/ Multivitamins 10 ml/Chromium/ Copper/Manganese/ Seleni/Zn 0.5 ml/ Insulin Human Regular 25 unit/ Total Parenteral Nutrition/Amino Acids/Dextrose/ Fat Emulsion Intravenous 1,400 ml @ 58.333 mls/ hr TPN CONT IV Last administered on 07/27/19at 21:41; Start 07/27/19 at 22:00; Stop 07/28/19 at 21:59; Status DC Sodium Chloride 1,000 ml @ 1,000 mls/hr Q1H PRN IV hypotension; Start 07/28/19 at 07:58; Stop 07/28/19 at 13:57; Status DC Albumin Human 200 ml @ 200 mls/hr 1X PRN PRN IV Hypotension Last administered on 07/28/19at 09:30; Start 07/28/19 at 08:00; Stop 07/28/19 at 13:59; Status DC Sodium Chloride 1,000 ml @ 400 mls/hr Q2H30M PRN IV PATENCY; Start 07/28/19 at 07:58; Stop 07/28/19 at 19:57; Status DC Info (PHARMACY MONITORING -- do not chart) 1 each PRN DAILY PRN MC SEE COMMENTS; Start 07/28/19 at 08:00; Status Cancel Info (PHARMACY MONITORING -- do not chart) 1 each PRN DAILY PRN MC SEE COMMENTS; Start 07/28/19 at 08:15; Status UNV Sodium Chloride 90 meq/Potassium Phosphate 5 mmol/ Magnesium Sulfate 12 meq/Calcium Gluconate 15 meq/ Multivitamins 10 ml/Chromium/ Copper/Manganese/ Seleni/Zn 0.5 ml/ Insulin Human Regular 30 unit/ Total Parenteral Nutrition/Amino Acids/Dextrose/ Fat Emulsion Intravenous 1,400 ml @ 58.333 mls/ hr TPN CONT IV Last administered on 07/28/19at 22:08; Start 07/28/19 at 22:00; Stop 07/29/19 at 21:59; Status DC Linezolid/Dextrose 300 ml @ 300 mls/hr Q12HR IV Last administered on 08/08/19at 20:40; Start 07/29/19 at 11:00; Stop 08/09/19 at 08:10; Status DC Sodium Chloride 90 meq/Potassium Phosphate 15 mmol/ Magnesium Sulfate 12 meq/Calcium Gluconate 15 meq/ Multivitamins 10 ml/Chromium/ Copper/Manganese/ Seleni/Zn 0.5 ml/ Insulin Human Regular 30 unit/ Total Parenteral Nutrition/Amino Acids/Dextrose/ Fat Emulsion Intravenous 1,400 ml @ 58.333 mls/ hr TPN CONT IV Last administered on 07/29/19at 21:49; Start 07/29/19 at 22:00; Stop 07/30/19 at 21:59; Status DC Sodium Chloride 90 meq/Potassium Phosphate 15 mmol/ Magnesium Sulfate 12 meq/C alcium Gluconate 15 meq/ Multivitamins 10 ml/Chromium/ Copper/Manganese/ Seleni/Zn 0.5 ml/ Insulin Human Regular 40 unit/ Total Parenteral Nutrition/Amino Acids/Dextrose/ Fat Emulsion Intravenous 1,400 ml @ 58.333 mls/ hr TPN CONT IV Last administered on 07/30/19at 21:21; Start 07/30/19 at 22:00; Stop 07/31/19 at 21:59; Status DC Sodium Chloride 1,000 ml @ 1,000 mls/hr Q1H PRN IV hypotension; Start 07/30/19 at 13:26; Stop 07/30/19 at 19:25; Status DC Albumin Human 200 ml @ 200 mls/hr 1X PRN PRN IV Hypotension Last administered on 07/30/19at 15:00; Start 07/30/19 at 13:30; Stop 07/30/19 at 19:29; Status DC Sodium Chloride (Normal Saline Flush) 10 ml 1X PRN PRN IV AP catheter pack; Start 07/30/19 at 13:30; Stop 07/31/19 at 13:29; Status DC Sodium Chloride (Normal Saline Flush) 10 ml 1X PRN PRN IV ABSORPTION AND ADSORPTION ENGINEER catheter pack; Start 07/30/19 at 13:30; Stop 07/31/19 at 13:29; Status DC Sodium Chloride 1,000 ml @ 400 mls/hr Q2H30M PRN IV PATENCY; Start 07/30/19 at 13:26; Stop 07/31/19 at 01:25; Status DC Info (PHARMACY MONITORING -- do not chart) 1 each PRN DAILY PRN MC SEE COMMENTS; Start 07/30/19 at 13:30; Stop 07/30/19 at 13:33; Status DC Info (PHARMACY MONITORING -- do not chart) 1 each PRN DAILY PRN MC SEE COMMENTS; Start 07/30/19 at 13:30; Stop 07/30/19 at 13:34; Status DC Sodium Chloride 90 meq/Potassium Phosphate 19 mmol/ Magnesium Sulfate 12 meq/Calcium Gluconate 15 meq/ Multivitamins 10 ml/Chromium/ Copper/Manganese/ Seleni/Zn 0.5 ml/ Insulin Human Regular 40 unit/ Total Parenteral Nutrition/Amino Acids/Dextrose/ Fat Emulsion Intravenous 1,400 ml @ 58.333 mls/ hr TPN CONT IV Last administered on 07/31/19at 21:54; Start 07/31/19 at 22:00; Stop 08/01/19 at 21:59; Status DC Sodium Chloride 1,000 ml @ 1,000 mls/hr Q1H PRN IV hypotension; Start 08/01/19 at 09:35; Stop 08/01/19 at 15:34; Status DC Albumin Human 200 ml @ 200 mls/hr 1X PRN PRN IV Hypotension; Start 08/01/19 at 09:45; Stop 08/01/19 at 15:44; Status DC Diphenhydramine HCl (Benadryl) 25 mg 1X PRN PRN IV ITCHING; Start 08/01/19 at 09:45; Stop 08/02/19 at 09:44; Status DC Diphenhydramine HCl (Benadryl) 25 mg 1X PRN PRN IV ITCHING; Start 08/01/19 at 09:45; Stop 08/02/19 at 09:44; Status DC Sodium Chloride 1,000 ml @ 400 mls/hr Q2H30M PRN IV PATENCY; Start 08/01/19 at 09:35; Stop 08/01/19 at 21:34; Status DC Info (PHARMACY MONITORING -- do not chart) 1 each PRN DAILY PRN MC SEE COMMENTS; Start 08/01/19 at 09:45; Status Cancel Sodium Chloride 100 meq/Potassium Phosphate 19 mmol/ Magnesium Sulfate 12 meq/Calcium Gluconate 15 meq/ Multivitamins 10 ml/Chromium/ Copper/Manganese/ Seleni/Zn 0.5 ml/ Insulin Human Regular 40 unit/ Potassium Chloride 20 meq/ Total Parenteral Nutrition/Amino Acids/Dextrose/ Fat Emulsion Intravenous 1,400 ml @ 58.333 mls/ hr TPN CONT IV Last administered on 08/01/19at 22:02; Start 08/01/19 at 22:00; Stop 08/02/19 at 21:59; Status DC Furosemide (Lasix) 40 mg 1X ONCE IVP Last administered on 08/01/19at 14:39; Start 08/01/19 at 14:30; Stop 08/01/19 at 14:31; Status DC Metronidazole 100 ml @ 100 mls/hr Q8HRS IV Last administered on 08/09/19at 06:04; Start 08/02/19 at 10:00; Stop 08/09/19 at 08:10; Status DC Sodium Chloride 1,000 ml @ 1,000 mls/hr Q1H PRN IV hypotension; Start 08/02/19 at 08:00; Stop 08/02/19 at 13:59; Status DC Albumin Human 200 ml @ 200 mls/hr 1X PRN PRN IV Hypotension; Start 08/02/19 at 08:00; Stop 08/02/19 at 13:59; Status DC Sodium Chloride 1,000 ml @ 400 mls/hr Q2H30M PRN IV PATENCY; Start 08/02/19 at 08:00; Stop 08/02/19 at 19:59; Status DC Info (PHARMACY MONITORING -- do not chart) 1 each PRN DAILY PRN MC SEE COMMENTS; Start 08/02/19 at 11:30; Status UNV Info (PHARMACY MONITORING -- do not chart) 1 each PRN DAILY PRN MC SEE COMMENTS; Start 08/02/19 at 11:30; Stop 08/04/19 at 12:13; Status DC Sodium Chloride 100 meq/Potassium Phosphate 19 mmol/ Magnesium Sulfate 12 meq/Calcium Gluconate 15 meq/ Multivitamins 10 ml/Chromium/ Copper/Manganese/ Seleni/Zn 0.5 ml/ Insulin Human Regular 40 unit/ Potassium Chloride 20 meq/ Total Parenteral Nutrition/Amino Acids/Dextrose/ Fat Emulsion Intravenous 1,400 ml @ 58.333 mls/ hr TPN CONT IV Last administered on 08/02/19at 21:52; Start 08/02/19 at 22:00; Stop 08/03/19 at 21:59; Status DC Sodium Chloride (Normal Saline Flush) 10 ml QSHIFT PRN IV AFTER MEDS AND BLOOD DRAWS; Start 08/02/19 at 15:00; Stop 08/30/19 at 11:27; Status DC Sodium Chloride (Normal Saline Flush) 10 ml PRN Q5MIN PRN IV AFTER MEDS AND BLOOD DRAWS; Start 08/02/19 at 15:00 Sodium Chloride (Normal Saline Flush) 20 ml PRN Q5MIN PRN IV AFTER MEDS AND BLOOD DRAWS; Start 08/02/19 at 15:00 Sodium Chloride 100 meq/Potassium Phosphate 19 mmol/ Magnesium Sulfate 12 meq/Calcium Gluconate 15 meq/ Multivitamins 10 ml/Chromium/ Copper/Manganese/ Seleni/Zn 0.5 ml/ Insulin Human Regular 40 unit/ Potassium Chloride 20 meq/ Total Parenteral Nutrition/Amino Acids/Dextrose/ Fat Emulsion Intravenous 1,400 ml @ 58.333 mls/ hr TPN CONT IV Last administered on 08/03/19at 21:20; Start 08/03/19 at 22:00; Stop 08/04/19 at 21:59; Status DC Lidocaine HCl (Buffered Lidocaine 1%) 3 ml STK-MED ONCE .ROUTE ; Start 08/03/19 at 13:16; Stop 08/03/19 at 13:16; Status DC Lidocaine HCl (Buffered Lidocaine 1%) 6 ml 1X ONCE INJ Last administered on 08/03/19at 13:45; Start 08/03/19 at 13:30; Stop 08/03/19 at 13:31; Status DC Albumin Human 100 ml @ 100 mls/hr 1X ONCE IV Last administered on 08/03/19at 15:41; Start 08/03/19 at 15:00; Stop 08/03/19 at 15:59; Status DC Albumin Human 50 ml @ 50 mls/hr 1X ONCE IV Last administered on 08/03/19at 15:00; Start 08/03/19 at 15:00; Stop 08/03/19 at 15:59; Status DC Info (PHARMACY MONITORING -- do not chart) 1 each PRN DAILY PRN MC SEE COMMENTS; Start 08/04/19 at 11:30; Status Cancel Info (PHARMACY MONITORING -- do not chart) 1 each PRN DAILY PRN MC SEE COMMENTS; Start 08/04/19 at 11:30; Status UNV Sodium Chloride 100 meq/Potassium Phosphate 10 mmol/ Magnesium Sulfate 12 meq/Calcium Gluconate 15 meq/ Multivitamins 10 ml/Chromium/ Copper/Manganese/ Seleni/Zn 0.5 ml/ Insulin Human Regular 35 unit/ Potassium Chloride 20 meq/ Total Parenteral Nutrition/Amino Acids/Dextrose/ Fat Emulsion Intravenous 1,400 ml @ 58.333 mls/ hr TPN CONT IV Last administered on 08/04/19at 22:10; Start 08/04/19 at 22:00; Stop 08/05/19 at 21:59; Status DC Sodium Chloride 100 meq/Potassium Phosphate 5 mmol/ Magnesium Sulfate 12 meq/Calcium Gluconate 15 meq/ Multivitamins 10 ml/Chromium/ Copper/Manganese/ Seleni/Zn 0.5 ml/ Insulin Human Regular 35 unit/ Potassium Chloride 20 meq/ Total Parenteral Nutrition/Amino Acids/Dextrose/ Fat Emulsion Intravenous 1,400 ml @ 58.333 mls/ hr TPN CONT IV Last administered on 08/05/19at 22:59; Start 08/05/19 at 22:00; Stop 08/06/19 at 21:59; Status DC Sodium Chloride 1,000 ml @ 1,000 mls/hr Q1H PRN IV hypotension; Start 08/06/19 at 08:27; Stop 08/06/19 at 14:26; Status DC Albumin Human 200 ml @ 200 mls/hr 1X PRN PRN IV Hypotension Last administered on 08/06/19at 09:18; Start 08/06/19 at 08:30; Stop 08/06/19 at 14:29; Status DC Sodium Chloride 1,000 ml @ 400 mls/hr Q2H30M PRN IV PATENCY; Start 08/06/19 at 08:27; Stop 08/06/19 at 20:26; Status DC Info (PHARMACY MONITORING -- do not chart) 1 each PRN DAILY PRN MC SEE COMMENTS; Start 08/06/19 at 08:30; Status Cancel Info (PHARMACY MONITORING -- do not chart) 1 each PRN DAILY PRN MC SEE COMMENTS; Start 08/06/19 at 08:30; Stop 08/14/19 at 13:10; Status DC Sodium Chloride 100 meq/Potassium Chloride 40 meq/ Magnesium Sulfate 15 meq/Calcium Gluconate 15 meq/ Multivitamins 10 ml/Chromium/ Copper/Manganese/ Seleni/Zn 0.5 ml/ Insulin Human Regular 35 unit/ Total Parenteral Nutrition/Amino Acids/Dextrose/ Fat Emulsion Intravenous 1,400 ml @ 58.333 mls/ hr TPN CONT IV Last administered on 08/06/19at 22:00; Start 08/06/19 at 22:00; Stop 08/07/19 at 21:59; Status DC Potassium Chloride/Water 100 ml @ 100 mls/hr 1X ONCE IV Last administered on 08/06/19at 17:28; Start 08/06/19 at 14:45; Stop 08/06/19 at 15:44; Status DC Sodium Chloride 100 meq/Potassium Chloride 40 meq/ Magnesium Sulfate 15 meq/C alcium Gluconate 15 meq/ Multivitamins 10 ml/Chromium/ Copper/Manganese/ Seleni/Zn 0.5 ml/ Insulin Human Regular 35 unit/ Total Parenteral Nutrition/Amino Acids/Dextrose/ Fat Emulsion Intravenous 1,400 ml @ 58.333 mls/ hr TPN CONT IV Last administered on 08/07/19at 22:46; Start 08/07/19 at 22:00; Stop 08/08/19 at 21:59; Status DC Sodium Chloride 100 meq/Potassium Chloride 40 meq/ Magnesium Sulfate 20 meq/Calcium Gluconate 15 meq/ Multivitamins 10 ml/Chromium/ Copper/Manganese/ Seleni/Zn 0.5 ml/ Insulin Human Regular 35 unit/ Total Parenteral Nutrition/Amino Acids/Dextrose/ Fat Emulsion Intravenous 1,400 ml @ 58.333 mls/ hr TPN CONT IV Last administered on 08/08/19at 22:31; Start 08/08/19 at 22:00; Stop 08/09/19 at 21:59; Status DC Fentanyl Citrate (Fentanyl 2ml Vial) 50 mcg PRN Q2HR PRN IVP PAIN Last administered on 08/15/19at 13:32; Start 08/08/19 at 21:00; Stop 08/16/19 at 12 :53; Status DC Fentanyl Citrate (Fentanyl 2ml Vial) 25 mcg PRN Q2HR PRN IVP PAIN; Start 08/08/19 at 21:00; Stop 08/16/19 at 12:54; Status DC Enoxaparin Sodium (Lovenox 100mg Syringe) 100 mg Q12HR SQ ; Start 08/09/19 at 21:00; Status UNV Amino Acids/ Glycerin/ Electrolytes 1,000 ml @ 75 mls/hr [id number] IV ; Start 08/08/19 at 21:15; Status UNV Sodium Chloride 1,000 ml @ 1,000 mls/hr Q1H PRN IV hypotension; Start 08/09/19 at 07:56; Stop 08/09/19 at 13:55; Status DC Albumin Human 200 ml @ 200 mls/hr 1X PRN PRN IV Hypotension Last administered on 08/09/19at 08:40; Start 08/09/19 at 08:00; Stop 08/09/19 at 13:59; Status DC Sodium Chloride 1,000 ml @ 400 mls/hr Q2H30M PRN IV PATENCY; Start 08/09/19 at 07:56; Stop 08/09/19 at 19:55; Status DC Info (PHARMACY MONITORING -- do not chart) 1 each PRN DAILY PRN MC SEE COMMENTS; Start 08/09/19 at 08:00; Status UNV Info (PHARMACY MONITORING -- do not chart) 1 each PRN DAILY PRN MC SEE COMMENTS; Start 08/09/19 at 08:00; Status UNV Daptomycin 430 mg/ Sodium Chloride 50 ml @ 100 mls/hr Q24H IV Last administered on 08/09/19at 12:35; Start 08/09/19 at 09:00; Stop 08/09/19 at 12:49; Status DC Sodium Chloride 100 meq/Potassium Chloride 40 meq/ Magnesium Sulfate 20 meq/Calcium Gluconate 15 meq/ Multivitamins 10 ml/Chromium/ Copper/Manganese/ Seleni/Zn 0.5 ml/ Insulin Human Regular 35 unit/ Total Parenteral Nutrition/Amino Acids/Dextrose/ Fat Emulsion Intravenous 1,400 ml @ 58.333 mls/ hr TPN CONT IV Last administered on 08/09/19at 21:26; Start 08/09/19 at 22:00; Stop 08/10/19 at 21:59; Status DC Daptomycin 430 mg/ Sodium Chloride 50 ml @ 100 mls/hr Q48H IV ; Start 08/11/19 at 09:00; Stop 08/10/19 at 11:55; Status DC Sodium Chloride 100 meq/Potassium Chloride 40 meq/ Magnesium Sulfate 20 meq/Calcium Gluconate 15 meq/ Multivitamins 10 ml/Chromium/ Copper/Manganese/ Seleni/Zn 0.5 ml/ Insulin Human Regular 35 unit/ Total Parenteral Nutrition/A jeb Acids/Dextrose/ Fat Emulsion Intravenous 1,400 ml @ 58.333 mls/ hr TPN CONT IV Last administered on 08/10/19at 22:27; Start 08/10/19 at 22:00; Stop 08/11/19 at 21:59; Status DC Daptomycin 430 mg/ Sodium Chloride 50 ml @ 100 mls/hr Q24H IV Last ad ministered on 08/12/19at 15:07; Start 08/10/19 at 13:00; Stop 08/13/19 at 13:15; Status DC Sodium Chloride 100 meq/Potassium Chloride 40 meq/ Magnesium Sulfate 20 meq/Calcium Gluconate 10 meq/ Multivitamins 10 ml/Chromium/ Copper/Manganese/ Seleni/Zn 0.5 ml/ Insulin Human Regular 35 unit/ Total Parenteral Nutrition/Amino Acids/Dextrose/ Fat Emulsion Intravenous 1,400 ml @ 58.333 mls/ hr TPN CONT IV Last administered on 08/12/19at 00:06; Start 08/11/19 at 22:00; Stop 08/12/19 at 21:59; Status DC Alteplase, Recombinant (Cathflo For Central Catheter Clearance) 1 mg 1X ONCE INT CAT Last administered on 08/12/19at 11:44; Start 08/12/19 at 10:45; Stop 08/12/19 at 10:46; Status DC Ondansetron HCl (Zofran) 4 mg PRN Q6HRS PRN IV NAUSEA/VOMITING; Start 08/15/19 at 07:00; Stop 08/16/19 at 06:59; Status DC Fentanyl Citrate (Fentanyl 2ml Vial) 25 mcg PRN Q5MIN PRN IV MILD PAIN 1-3; Start 08/15/19 at 07:00; Stop 08/16/19 at 06:59; Status DC Fentanyl Citrate (Fentanyl 2ml Vial) 50 mcg PRN Q5MIN PRN IV MODERATE TO SEVERE PAIN Last administered on 08/15/19at 10:17; Start 08/15/19 at 07:00; Stop 08/16/19 at 06:59; Status DC Ringer's Solution 1,000 ml @ 30 mls/hr Q24H IV ; Start 08/15/19 at 07:00; Stop 08/15/19 at 18:59; Status DC Lidocaine HCl (Xylocaine-Mpf 1% 2ml Vial) 2 ml PRN 1X PRN ID PRIOR TO IV START; Start 08/15/19 at 07:00; Stop 08/16/19 at 06:59; Status DC Prochlorperazine Edisylate (Compazine) 5 mg PACU PRN PRN IV NAUSEA, MRX1; Start 08/15/19 at 07:00; Stop 08/16/19 at 06:59; Status DC Sodium Acetate 50 meq/Potassium Acetate 55 meq/ Magnesium Sulfate 20 meq/Calcium Gluconate 10 meq/ Multivitamins 10 ml/Chromium/ Copper/Manganese/ Seleni/Zn 0.5 ml/ Insulin Human Regular 35 unit/ Total Parenteral Nutrition/Amino Acids/Dextrose/ Fat Emulsion Intravenous 1,400 ml @ 58.333 mls/ hr TPN CONT IV ; Start 08/12/19 at 22:00; Stop 08/12/19 at 14:15; Status DC Sodium Acetate 50 meq/Potassium Acetate 55 meq/ Magnesium Sulfate 20 meq/Calcium Gluconate 10 meq/ Multivitamins 10 ml/Chromium/ Copper/Manganese/ Seleni/Zn 0.5 ml/ Insulin Human Regular 35 unit/ Total Parenteral Nutrition/Amino Acids/Dextrose/ Fat Emulsion Intravenous 1,800 ml @ 75 mls/hr TPN CONT IV Last administered on 08/12/19at 22:38; Start 08/12/19 at 22:00; Stop 08/13/19 at 21:59; Status DC Sodium Chloride 1,000 ml @ 1,000 mls/hr Q1H PRN IV hypotension; Start 08/12/19 at 15:31; Stop 08/12/19 at 21:30; Status DC Diphenhydramine HCl (Benadryl) 25 mg 1X PRN PRN IV ITCHING; Start 08/12/19 at 15:45; Stop 08/13/19 at 15:44; Status DC Diphenhydramine HCl (Benadryl) 25 mg 1X PRN PRN IV ITCHING; Start 08/12/19 at 15:45; Stop 08/13/19 at 15:44; Status DC Sodium Chloride 1,000 ml @ 400 mls/hr Q2H30M PRN IV PATENCY; Start 08/12/19 at 15:31; Stop 08/13/19 at 03:30; Status DC Info (PHARMACY MONITORING -- do not chart) 1 each PRN DAILY PRN MC SEE COMMENTS; Start 08/12/19 at 15:45; Stop 09/13/19 at 14:14; Status DC Sodium Acetate 50 meq/Potassium Acetate 55 meq/ Magnesium Sulfate 20 meq/Calcium Gluconate 10 meq/ Multivitamins 10 ml/Chromium/ Copper/Manganese/ Seleni/Zn 0.5 ml/ Insulin Human Regular 35 unit/ Total Parenteral Nutrition/Amino Acids/Dextrose/ Fat Emulsion Intravenous 1,800 ml @ 75 mls/hr TPN CONT IV Last administered on 08/13/19at 22:03; Start 08/13/19 at 22:00; Stop 08/14/19 at 21:59; Status DC Daptomycin 430 mg/ Sodium Chloride 50 ml @ 100 mls/hr Q24H IV Last administered on 08/18/19at 13:00; Start 08/13/19 at 13:00; Stop 08/18/19 at 20:58; Status DC Heparin Sodium (Porcine) 1000 unit/Sodium Chloride 1,001 ml @ 1,001 mls/hr 1X ONCE IRR ; Start 08/15/19 at 06:00; Stop 08/15/19 at 06:59; Status DC Potassium Acetate 55 meq/Magnesium Sulfate 20 meq/ Calcium Gluconate 10 meq/ Multivitamins 10 ml/Chromium/ Copper/Manganese/ Seleni/Zn 0.5 ml/ Insulin Human Regular 35 unit/ Total Parenteral Nutrition/Amino Acids/Dextrose/ Fat Emulsion Intravenous 1,920 ml @ 80 mls/hr TPN CONT IV Last administered on 08/14/19at 22:10; Start 08/14/19 at 22:00; Stop 08/15/19 at 21:59; Status DC Dexamethasone Sodium Phosphate (Decadron) 4 mg STK-MED ONCE .ROUTE ; Start 08/15/19 at 10:56; Stop 08/15/19 at 10:57; Status DC Ondansetron HCl (Zofran) 4 mg STK-MED ONCE .ROUTE ; Start 08/15/19 at 10:56; Stop 08/15/19 at 10:57; Status DC Rocuronium Ronco (Zemuron) 50 mg STK-MED ONCE .ROUTE ; Start 08/15/19 at 10:56; Stop 08/15/19 at 10:57; Status DC Fentanyl Citrate (Fentanyl 2ml Vial) 100 mcg STK-MED ONCE .ROUTE ; Start 08/15/19 at 10:56; Stop 08/15/19 at 10:57; Status DC Bupivacaine HCl/ Epinephrine Bitart (Sensorcain-Epi 0.5%-1:[id number] Mpf) 30 ml STK-MED ONCE .ROUTE Last administered on 08/15/19at 12:01; Start 08/15/19 at 10:58; Stop 08/15/19 at 10:58; Status DC Cellulose (Surgicel Hemostat 2x14) 1 each STK-MED ONCE .ROUTE ; Start 08/15/19 at 10:58; Stop 08/15/19 at 10:59; Status DC Iohexol (Omnipaque 300 Mg/ml) 50 ml STK-MED ONCE .ROUTE ; Start 08/15/19 at 10:58; Stop 08/15/19 at 10:59; Status DC Cellulose (Surgicel Hemostat 4x8) 1 each STK-MED ONCE .ROUTE ; Start 08/15/19 at 10:58; Stop 08/15/19 at 10:59; Status DC Bisacodyl (Dulcolax Supp) 10 mg STK-MED ONCE .ROUTE ; Start 08/15/19 at 10:59; Stop 08/15/19 at 10:59; Status DC Heparin Sodium (Porcine) 1000 unit/Sodium Chloride 1,001 ml @ 1,001 mls/hr 1X ONCE IRR ; Start 08/15/19 at 12:00; Stop 08/15/19 at 12:59; Status DC Propofol 20 ml @ As Directed STK-MED ONCE IV ; Start 08/15/19 at 11:05; Stop 08/15/19 at 11:05; Status DC Sevoflurane (Ultane) 90 ml STK-MED ONCE IH ; Start 08/15/19 at 11:05; Stop 08/15/19 at 11:05; Status DC Sevoflurane (Ultane) 60 ml STK-MED ONCE IH ; Start 08/15/19 at 12:26; Stop 08/15/19 at 12:27; Status DC Propofol 20 ml @ As Directed STK-MED ONCE IV ; Start 08/15/19 at 12:26; Stop 08/15/19 at 12:27; Status DC Phenylephrine HCl (PHENYLEPHRINE in 0.9% NACL PF) 1 mg STK-MED ONCE IV ; Start 08/15/19 at 12:34; Stop 08/15/19 at 12:34; Status DC Heparin Sodium (Porcine) (Heparin Sodium) 5,000 unit Q12HR SQ Last administered on 08/24/19at 20:57; Start 08/15/19 at 21:00; Stop 08/25/19 at 09:59; Status DC Sodium Chloride (Normal Saline Flush) 3 ml QSHIFT PRN IV AFTER MEDS AND BLOOD DRAWS; Start 08/15/19 at 13:45 Naloxone HCl (Narcan) 0.4 mg PRN Q2MIN PRN IV SEE INSTRUCTIONS Last administered on 09/24/19at 15:15; Start 08/15/19 at 13:45 Sodium Chloride 1,000 ml @ 25 mls/hr Q24H IV Last administered on 09/13/19at 13:37; Start 08/15/19 at 13:37; Stop 09/16/19 at 13:09; Status DC Naloxone HCl (Narcan) 0.4 mg PRN Q2MIN PRN IV SEE INSTRUCTIONS; Start 08/15/19 at 14:30; Status UNV Sodium Chloride 1,000 ml @ 25 mls/hr Q24H IV ; Start 08/15/19 at 14:30; Status UNV Hydromorphone HCl 30 ml @ 0 mls/hr CONT PRN PRN IV PER PROTOCOL Last administered on 08/20/19at 16:08; Start 08/15/19 at 14:30; Stop 08/22/19 at 08:55; Status DC Potassium Acetate 55 meq/Magnesium Sulfate 20 meq/ Calcium Gluconate 10 meq/ Multivitamins 10 ml/Chromium/ Copper/Manganese/ Seleni/Zn 0.5 ml/ Insulin Human Regular 35 unit/ Total Parenteral Nutrition/Amino Acids/Dextrose/ Fat Emulsion Intravenous 1,920 ml @ 80 mls/hr TPN CONT IV Last administered on 08/15/19at 22:01; Start 08/15/19 at 22:00; Stop 08/16/19 at 21:59; Status DC Bumetanide (Bumex) 2 mg [id number] IV Last administered on 08/19/19at 13:50; Start 08/16/19 at 14:00; Stop 08/20/19 at 14:10; Status DC Meropenem 1 gm/ Sodium Chloride 100 ml @ 200 mls/hr Q8HRS IV Last administered on 09/09/19at 05:53; Start 08/16/19 at 14:00; Stop 09/09/19 at 09:31; Status DC Potassium Acetate 55 meq/Magnesium Sulfate 20 meq/ Calcium Gluconate 10 meq/ Multivitamins 10 ml/Chromium/ Copper/Manganese/ Seleni/Zn 0.5 ml/ Insulin Human Regular 35 unit/ Total Parenteral Nutrition/Amino Acids/Dextrose/ Fat Emulsion Intravenous 1,920 ml @ 80 mls/hr TPN CONT IV Last administered on 08/16/19at 22:02; Start 08/16/19 at 22:00; Stop 08/17/19 at 21:59; Status DC Hydromorphone HCl (Dilaudid Standard STATION WORKER) 12 mg STK-MED ONCE IV ; Start 08/15/19 at 14:35; Stop 08/16/19 at 13:53; Status DC Artificial Tears (Artificial Tears) 1 drop PRN Q15MIN PRN OU DRY EYE Last administered on 10/11/19at 21:17; Start 08/17/19 at 05:30 Hydromorphone HCl (Dilaudid Standard STATION WORKER) 12 mg STK-MED ONCE IV ; Start 08/16/19 at 12:05; Stop 08/17/19 at 09:15; Status DC Potassium Acetate 65 meq/Magnesium Sulfate 20 meq/ Calcium Gluconate 10 meq/ Multivitamins 10 ml/Chromium/ Copper/Manganese/ Seleni/Zn 0.5 ml/ Insulin Human Regular 30 unit/ Total Parenteral Nutrition/Amino Acids/Dextrose/ Fat Emulsion Intravenous 1,920 ml @ 80 mls/hr TPN CONT IV Last administered on 08/17/19at 22:22; Start 08/17/19 at 22:00; Stop 08/18/19 at 21:59; Status DC Cyclobenzaprine HCl (Flexeril) 10 mg PRN Q6HRS PRN PO MUSCLE SPASMS; Start 08/18/19 at 10:45 Potassium Acetate 55 meq/Magnesium Sulfate 20 meq/ Calcium Gluconate 10 meq/ Multivitamins 10 ml/Chromium/ Copper/Manganese/ Seleni/Zn 0.5 ml/ Insulin Human Regular 30 unit/ Total Parenteral Nutrition/Amino Acids/Dextrose/ Fat Emulsion Intravenous 1,920 ml @ 80 mls/hr TPN CONT IV Last administered on 08/19/19at 01:00; Start 08/18/19 at 22:00; Stop 08/19/19 at 21:59; Status DC Magnesium Sulfate 50 ml @ 25 mls/hr 1X ONCE IV Last administered on 08/18/19at 17:18; Start 08/18/19 at 12:45; Stop 08/18/19 at 14:44; Status DC Potassium Chloride/Water 100 ml @ 100 mls/hr 1X ONCE IV Last administered on 08/19/19at 11:27; Start 08/19/19 at 12:00; Stop 08/19/19 at 12:59; Status DC Hydromorphone HCl (Dilaudid Standard STATION WORKER) 12 mg STK-MED ONCE IV ; Start 08/17/19 at 10:50; Stop 08/19/19 at 11:02; Status DC Hydromorphone HCl (Dilaudid Standard STATION WORKER) 12 mg STK-MED ONCE IV ; Start 08/18/19 at 13:47; Stop 08/19/19 at 11:03; Status DC Potassium Acetate 30 meq/Magnesium Sulfate 20 meq/ Calcium Gluconate 10 meq/ Multivitamins 10 ml/Chromium/ Copper/Manganese/ Seleni/Zn 0.5 ml/ Insulin Human Regular 30 unit/ Potassium Chloride 30 meq/ Total Parenteral Nutrition/Amino Acids/Dextrose/ Fat Emulsion Intravenous 1,920 ml @ 80 mls/hr TPN CONT IV Last administered on 08/19/19at 22:34; Start 08/19/19 at 22:00; Stop 08/20/19 at 21:59; Status DC Potassium Chloride/Water 100 ml @ 100 mls/hr Q1H IV Last administered on at 13:05; Start 08/20/19 at 07:00; Stop 08/20/19 at 10:59; Status DC Magnesium Sulfate 50 ml @ 25 mls/hr 1X ONCE IV Last administered on 08/20/19at 10:34; Start 08/20/19 at 10:30; Stop 08/20/19 at 12:29; Status DC Potassium Chloride 75 meq/ Magnesium Sulfate 20 meq/Calcium Gluconate 10 meq/ Multivitamins 10 ml/Chromium/ Copper/Manganese/ Seleni/Zn 0.5 ml/ Insulin Human Regular 30 unit/ Total Parenteral Nutrition/Amino Acids/Dextrose/ Fat Emulsion Intravenous 1,920 ml @ 80 mls/hr TPN CONT IV Last administered on 08/20/19at 21:51; Start 08/20/19 at 22:00; Stop 08/21/19 at 22:00; Status DC Potassium Chloride 75 meq/ Magnesium Sulfate 20 meq/Calcium Gluconate 10 meq/ Multivitamins 10 ml/Chromium/ Copper/Manganese/ Seleni/Zn 0.5 ml/ Insulin Human Regular 25 unit/ Total Parenteral Nutrition/Amino Acids/Dextrose/ Fat Emulsion Intravenous 1,920 ml @ 80 mls/hr TPN CONT IV Last administered on 08/21/19at 22:04; Start 08/21/19 at 22:00; Stop 08/22/19 at 21:59; Status DC Hydromorphone HCl (Dilaudid) 0.4 mg PRN Q4HRS PRN IVP PAIN Last administered on 08/22/19at 10:57; Start 08/22/19 at 09:00; Stop 08/22/19 at 18:59; Status DC Micafungin Sodium 100 mg/Dextrose 100 ml @ 100 mls/hr Q24H IV Last administered on 09/13/19at 12:17; Start 08/22/19 at 11:00; Stop 09/14/19 at 09:59; Status DC Daptomycin 485 mg/ Sodium Chloride 50 ml @ 100 mls/hr Q24H IV Last administered on 08/29/19at 13:10; Start 08/22/19 at 11:00; Stop 08/30/19 at 07:44; Status DC Potassium Chloride 75 meq/ Magnesium Sulfate 15 meq/Calcium Gluconate 8 meq/ Multivitamins 10 ml/Chromium/ Copper/Manganese/ Seleni/Zn 0.5 ml/ Insulin Human Regular 25 unit/ Total Parenteral Nutrition/Amino Acids/Dextrose/ Fat Emulsion Intravenous 1,920 ml @ 80 mls/hr TPN CONT IV Last administered on 08/22/19at 23:08; Start 08/22/19 at 22:00; Stop 08/23/19 at 21:59; Status DC Haloperidol Lactate (Haldol Inj) 3 mg 1X ONCE IVP Last administered on 08/22/19at 14:37; Start 08/22/19 at 14:30; Stop 08/22/19 at 14:31; Status DC Hydromorphone HCl (Dilaudid) 1 mg PRN Q4HRS PRN IVP PAIN Last administered on 09/05/19at 06:25; Start 08/22/19 at 19:00; Stop 09/05/19 at 17:10; Status DC Potassium Chloride 75 meq/ Magnesium Sulfate 15 meq/Calcium Gluconate 8 meq/ Multivitamins 10 ml/Chromium/ Copper/Manganese/ Seleni/Zn 0.5 ml/ Insulin Human Regular 20 unit/ Total Parenteral Nutrition/Amino Acids/Dextrose/ Fat Emulsion Intravenous 1,920 ml @ 80 mls/hr TPN CONT IV Last administered on 08/23/19at 22:10; Start 08/23/19 at 22:00; Stop 08/24/19 at 21:59; Status DC Lidocaine HCl (Buffered Lidocaine 1%) 3 ml STK-MED ONCE .ROUTE ; Start 08/24/19 at 11:31; Stop 08/24/19 at 11:31; Status DC Lidocaine HCl (Buffered Lidocaine 1%) 3 ml STK-MED ONCE .ROUTE ; Start 08/24/19 at 12:28; Stop 08/24/19 at 12:29; Status DC Lidocaine HCl (Buffered Lidocaine 1%) 6 ml 1X ONCE INJ Last administered on 08/24/19at 12:53; Start 08/24/19 at 12:45; Stop 08/24/19 at 12:46; Status DC Potassium Chloride 75 meq/ Magnesium Sulfate 15 meq/Calcium Gluconate 8 meq/ Multivitamins 10 ml/Chromium/ Copper/Manganese/ Seleni/Zn 0.5 ml/ Insulin Human Regular 20 unit/ Total Parenteral Nutrition/Amino Acids/Dextrose/ Fat Emulsion Intravenous 1,920 ml @ 80 mls/hr TPN CONT IV Last administered on 08/24/19at 22:00; Start 08/24/19 at 22:00; Stop 08/25/19 at 21:59; Status DC Potassium Chloride 75 meq/ Magnesium Sulfate 15 meq/Calcium Gluconate 8 meq/ Multivitamins 10 ml/Chromium/ Copper/Manganese/ Seleni/Zn 0.5 ml/ Insulin Human Regular 15 unit/ Total Parenteral Nutrition/Amino Acids/Dextrose/ Fat Emulsion Intravenous 1,920 ml @ 80 mls/hr TPN CONT IV Last administered on 08/25/19at 22:28; Start 08/25/19 at 22:00; Stop 08/26/19 at 21:59; Status DC Vecuronium Ronco (Norcuron Bolus) 6 mg PRN Q6HRS PRN IV VENT ASYNCHRONY; Start 08/25/19 at 19:15; Stop 08/25/19 at 19:35; Status DC Bumetanide (Bumex) 2 mg 1X ONCE IV Last administered on 08/25/19at 22:09; Start 08/25/19 at 19:45; Stop 08/25/19 at 19:46; Status DC Lidocaine HCl (Buffered Lidocaine 1%) 3 ml STK-MED ONCE .ROUTE ; Start 08/26/19 at 07:59; Stop 08/26/19 at 07:59; Status DC Midazolam HCl (Versed) 5 mg STK-MED ONCE .ROUTE ; Start 08/26/19 at 08:36; Stop 08/26/19 at 08:36; Status DC Fentanyl Citrate (Fentanyl 5ml Vial) 250 mcg STK-MED ONCE .ROUTE ; Start 08/26/19 at 08:36; Stop 08/26/19 at 08:37; Status DC Lidocaine HCl (Buffered Lidocaine 1%) 3 ml 1X ONCE IJ Last administered on 08/26/19at 09:30; Start 08/26/19 at 09:15; Stop 08/26/19 at 09:16; Status DC Midazolam HCl (Versed) 5 mg 1X ONCE IV Last administered on 08/26/19at 09:30; Start 08/26/19 at 09:15; Stop 08/26/19 at 09:16; Status DC Fentanyl Citrate (Fentanyl 5ml Vial) 250 mcg 1X ONCE IV Last administered on 08/26/19at 09:30; Start 08/26/19 at 09:15; Stop 08/26/19 at 09:16; Status DC Bumetanide (Bumex) 2 mg DAILY IV Last administered on 09/05/19at 08:07; Start 08/26/19 at 10:00; Stop 09/05/19 at 17:15; Status DC Potassium Chloride 75 meq/ Magnesium Sulfate 15 meq/ Multivitamins 10 ml/Chromium/ Copper/Manganese/ Seleni/Zn 0.5 ml/ Insulin Human Regular 15 unit/ Total Parenteral Nutrition/Amino Acids/Dextrose/ Fat Emulsion Intravenous 1,920 ml @ 80 mls/hr TPN CONT IV Last administered on 08/26/19at 21:59; Start 08/26/19 at 22:00; Stop 08/27/19 at 21:59; Status DC Metoclopramide HCl (Reglan Vial) 10 mg PRN Q3HRS PRN IVP NAUSEA/VOMITING-3rd choice Last administered on 09/01/19at 04:25; Start 08/27/19 at 16:45 Potassium Chloride 75 meq/ Magnesium Sulfate 15 meq/ Multivitamins 10 ml/Chromium/ Copper/Manganese/ Seleni/Zn 0.5 ml/ Insulin Human Regular 15 unit/ Total Parenteral Nutrition/Amino Acids/Dextrose/ Fat Emulsion Intravenous 1,920 ml @ 80 mls/hr TPN CONT IV Last administered on 08/27/19at 22:41; Start 08/27/19 at 22:00; Stop 08/28/19 at 21:59; Status DC Magnesium Sulfate 50 ml @ 25 mls/hr 1X ONCE IV Last administered on 08/28/19at 10:44; Start 08/28/19 at 09:00; Stop 08/28/19 at 10:59; Status DC Potassium Chloride/Water 100 ml @ 100 mls/hr 1X ONCE IV Last administered on 08/28/19at 09:37; Start 08/28/19 at 09:00; Stop 08/28/19 at 09:59; Status DC Duloxetine HCl (Cymbalta) 30 mg DAILY PO Last administered on 08/29/19at 09:48; Start 08/28/19 at 14:00; Stop 08/31/19 at 10:25; Status DC Potassium Chloride 80 meq/ Magnesium Sulfate 20 meq/ Multivitamins 10 ml/Chromium/ Copper/Manganese/ Seleni/Zn 0.5 ml/ Insulin Human Regular 15 unit/ Total Parenteral Nutrition/Amino Acids/Dextrose/ Fat Emulsion Intravenous 1,920 ml @ 80 mls/hr TPN CONT IV Last administered on 08/28/19at 21:42; Start 08/28/19 at 22:00; Stop 08/29/19 at 21:59; Status DC Potassium Chloride 80 meq/ Magnesium Sulfate 20 meq/ Multivitamins 10 ml/Chromium/ Copper/Manganese/ Seleni/Zn 0.5 ml/ Insulin Human Regular 15 unit/ Total Parenteral Nutrition/Amino Acids/Dextrose/ Fat Emulsion Intravenous 1,920 ml @ 80 mls/hr TPN CONT IV Last administered on 08/29/19at 22:20; Start 08/29/19 at 22:00; Stop 08/30/19 at 21:59; Status DC Lidocaine HCl (Buffered Lidocaine 1%) 3 ml STK-MED ONCE .ROUTE ; Start 08/30/19 at 09:54; Stop 08/30/19 at 09:55; Status DC Hydromorphone HCl (Dilaudid Standard STATION WORKER) 12 mg STK-MED ONCE IV ; Start 08/19/19 at 15:50; Stop 08/30/19 at 11:24; Status DC Potassium Chloride 80 meq/ Magnesium Sulfate 20 meq/ Multivitamins 10 ml/Chromium/ Copper/Manganese/ Seleni/Zn 0.5 ml/ Insulin Human Regular 15 unit/ Total Parenteral Nutrition/Amino Acids/Dextrose/ Fat Emulsion Intravenous 1,920 ml @ 80 mls/hr TPN CONT IV Last administered on 08/30/19at 21:40; Start 08/30/19 at 22:00; Stop 08/31/19 at 21:59; Status DC Lidocaine HCl (Buffered Lidocaine 1%) 6 ml 1X ONCE INJ Last administered on 08/30/19at 14:15; Start 08/30/19 at 14:15; Stop 08/30/19 at 14:16; Status DC Potassium Chloride 80 meq/ Magnesium Sulfate 20 meq/ Multivitamins 10 ml/Chromium/ Copper/Manganese/ Seleni/Zn 1 ml/ Insulin Human Regular 15 unit/ Total Parenteral Nutrition/Amino Acids/Dextrose/ Fat Emulsion Intravenous 1,920 ml @ 80 mls/hr TPN CONT IV Last administered on 08/31/19at 22:04; Start 08/31/19 at 22:00; Stop 09/01/19 at 21:59; Status DC Potassium Chloride/Water 100 ml @ 100 mls/hr 1X ONCE IV Last administered on 09/01/19at 11:34; Start 09/01/19 at 11:00; Stop 09/01/19 at 11:59; Status DC Potassium Chloride 90 meq/ Magnesium Sulfate 20 meq/ Multivitamins 10 ml/Chromium/ Copper/Manganese/ Seleni/Zn 1 ml/ Insulin Human Regular 15 unit/ Total Parenteral Nutrition/Amino Acids/Dextrose/ Fat Emulsion Intravenous 1,920 ml @ 80 mls/hr TPN CONT IV Last administered on 09/01/19at 22:57; Start 09/01/19 at 22:00; Stop 09/02/19 at 21:59; Status DC Potassium Chloride 90 meq/ Magnesium Sulfate 20 meq/ Multivitamins 10 ml/Chromium/ Copper/Manganese/ Seleni/Zn 1 ml/ Insulin Human Regular 15 unit/ Total Parenteral Nutrition/Amino Acids/Dextrose/ Fat Emulsion Intravenous 1,920 ml @ 80 mls/hr TPN CONT IV Last administered on 09/02/19at 22:48; Start 09/02/19 at 22:00; Stop 09/03/19 at 21:59; Status DC Potassium Chloride 90 meq/ Magnesium Sulfate 20 meq/ Multivitamins 10 ml/Chromium/ Copper/Manganese/ Seleni/Zn 1 ml/ Insulin Human Regular 15 unit/ Total Parenteral Nutrition/Amino Acids/Dextrose/ Fat Emulsion Intravenous 1,890 ml @ 78.75 mls/ hr TPN CONT IV Last administered on 09/03/19at 22:15; Start 09/03/19 at 22:00; Stop 09/04/19 at 21:59; Status DC Linezolid/Dextrose 300 ml @ 300 mls/hr Q12HR IV Last administered on 09/06/19at 21:08; Start 09/04/19 at 09:00; Stop 09/07/19 at 08:11; Status DC Daptomycin 450 mg/ Sodium Chloride 50 ml @ 100 mls/hr Q24H IV Last administered on 09/07/19at 09:25; Start 09/04/19 at 09:00; Stop 09/08/19 at 08:30; Status DC Potassium Chloride 90 meq/ Magnesium Sulfate 20 meq/ Multivitamins 10 ml/Chromium/ Copper/Manganese/ Seleni/Zn 1 ml/ Insulin Human Regular 15 unit/ Total Parenteral Nutrition/Amino Acids/Dextrose/ Fat Emulsion Intravenous 1,890 ml @ 78.75 mls/ hr TPN CONT IV Last administered on 09/04/19at 21:34; Start 09/04/19 at 22:00; Stop 09/05/19 at 21:59; Status DC Lorazepam (Ativan Inj) 2 mg STK-MED ONCE .ROUTE ; Start 09/04/19 at 14:58; Stop 09/04/19 at 14:58; Status DC Metoprolol Tartrate (Lopressor Vial) 5 mg 1X ONCE IVP Last administered on 09/04/19at 15:31; Start 09/04/19 at 15:15; Stop 09/04/19 at 15:16; Status DC Lorazepam (Ativan Inj) 2 mg 1X ONCE IVP Last administered on 09/04/19at 15:30; Start 09/04/19 at 15:15; Stop 09/04/19 at 15:16; Status DC Enoxaparin Sodium (Lovenox 40mg Syringe) 40 mg Q24H SQ Last administered on 09/23/19at 17:44; Start 09/04/19 at 17:00; Stop 09/25/19 at 06:50; Status DC Lorazepam (Ativan Inj) 1 mg PRN Q4HRS PRN IVP ANXIETY / AGITATION MILD-MOD Last administered on 09/18/19at 15:55; Start 09/04/19 at 19:15; Stop 09/20/19 at 11:45; Status DC Lorazepam (Ativan Inj) 2 mg PRN Q4HRS PRN IVP ANXIETY / AGITATION SEVERE Last administered on 09/19/19at 07:55; Start 09/04/19 at 19:15; Stop 09/20/19 at 11:45; Status DC Fentanyl Citrate (Fentanyl 2ml Vial) 50 mcg PRN Q4HRS PRN IVP SEVERE PAIN Last administered on 10/01/19at 05:15; Start 09/05/19 at 13:15; Stop 10/02/19 at 09:29; Status DC Fentanyl Citrate (Fentanyl 2ml Vial) 25 mcg PRN Q4HRS PRN IVP MODERATE PAIN Last administered on 10/01/19at 00:27; Start 09/05/19 at 13:15; Stop 10/02/19 at 09:30; Status DC Potassium Chloride 90 meq/ Magnesium Sulfate 20 meq/ Multivitamins 10 ml/Chromium/ Copper/Manganese/ Seleni/Zn 1 ml/ Insulin Human Regular 15 unit/ Total Parenteral Nutrition/Amino Acids/Dextrose/ Fat Emulsion Intravenous 1,890 ml @ 78.75 mls/ hr TPN CONT IV Last administered on 09/05/19at 22:18; Start 09/05/19 at 22:00; Stop 09/06/19 at 21:59; Status DC Furosemide (Lasix) 40 mg 1X ONCE IVP Last administered on 09/05/19at 21:51; Start 09/05/19 at 21:45; Stop 09/05/19 at 21:48; Status DC Albumin Human 100 ml @ 100 mls/hr 1X PRN PRN IV SEE COMMENTS; Start 09/06/19 at 01:30 Furosemide (Lasix) 40 mg [id number] IVP Last administered on 09/21/19at 08:04; Start 09/06/19 at 14:00; Stop 09/21/19 at 13:07; Status DC Potassium Chloride 90 meq/ Magnesium Sulfate 20 meq/ Multivitamins 10 ml/Chromium/ Copper/Manganese/ Seleni/Zn 1 ml/ Insulin Human Regular 15 unit/ Total Parenteral Nutrition/Amino Acids/Dextrose/ Fat Emulsion Intravenous 1,800 ml @ 75 mls/hr TPN CONT IV Last administered on 09/06/19at 22:31; Start 09/06/19 at 22:00; Stop 09/07/19 at 21:59; Status DC Potassium Chloride 90 meq/ Magnesium Sulfate 20 meq/ Multivitamins 10 ml/ Chromium/ Copper/Manganese/ Seleni/Zn 1 ml/ Insulin Human Regular 15 unit/ Total Parenteral Nutrition/Amino Acids/Dextrose/ Fat Emulsion Intravenous 1,800 ml @ 75 mls/hr TPN CONT IV Last administered on 09/07/19at 22:28; Start 09/07/19 at 22:00; Stop 09/08/19 at 21:59; Status DC Potassium Chloride 110 meq/ Magnesium Sulfate 20 meq/ Multivitamins 10 ml/Chromium/ Copper/Manganese/ Seleni/Zn 1 ml/ Insulin Human Regular 15 unit/ Total Parenteral Nutrition/Amino Acids/Dextrose/ Fat Emulsion Intravenous 1,800 ml @ 75 mls/hr TPN CONT IV Last administered on 09/08/19at 22:01; Start 09/08/19 at 22:00; Stop 09/09/19 at 21:59; Status DC Saliva Substitute (Biotene Moisturizing Mouth) 2 spray PRN Q15MIN PRN PO DRY MOUTH; Start 09/08/19 at 11:00 Potassium Chloride 110 meq/ Magnesium Sulfate 20 meq/ Multivitamins 10 ml/Chromium/ Copper/Manganese/ Seleni/Zn 1 ml/ Insulin Human Regular 15 unit/ Total Parenteral Nutrition/Amino Acids/Dextrose/ Fat Emulsion Intravenous 1,800 ml @ 75 mls/hr TPN CONT IV Last administered on 09/09/19at 22:21; Start 09/09/19 at 22:00; Stop 09/10/19 at 21:59; Status DC Potassium Chloride 110 meq/ Magnesium Sulfate 20 meq/ Multivitamins 10 ml/Chromium/ Copper/Manganese/ Seleni/Zn 1 ml/ Insulin Human Regular 15 unit/ Total Parenteral Nutrition/Amino Acids/Dextrose/ Fat Emulsion Intravenous 1,800 ml @ 75 mls/hr TPN CONT IV Last administered on 09/10/19at 22:04; Start 09/10/19 at 22:00; Stop 09/11/19 at 21:59; Status DC Potassium Chloride 110 meq/ Magnesium Sulfate 20 meq/ Multivitamins 10 ml /Chromium/ Copper/Manganese/ Seleni/Zn 1 ml/ Insulin Human Regular 15 unit/ Total Parenteral Nutrition/Amino Acids/Dextrose/ Fat Emulsion Intravenous 1,800 ml @ 75 mls/hr TPN CONT IV Last administered on 09/11/19at 22:48; Start 09/11/19 at 22:00; Stop 09/12/19 at 21:59; Status DC Potassium Chloride 70 meq/ Magnesium Sulfate 20 meq/ Multivitamins 10 ml/Chromium/ Copper/Manganese/ Seleni/Zn 1 ml/ Insulin Human Regular 15 unit/ Total Parenteral Nutrition/Amino Acids/Dextrose/ Fat Emulsion Intravenous 1,800 ml @ 75 mls/hr TPN CONT IV Last administered on 09/12/19at 21:39; Start 09/12/19 at 22:00; Stop 09/13/19 at 21:59; Status DC Meropenem 500 mg/ Sodium Chloride 50 ml @ 100 mls/hr Q6HRS IV Last administered on 09/14/19at 06:02; Start 09/12/19 at 18:00; Stop 09/14/19 at 09:59; Status DC Barium Sulfate (Varibar Thin Liquid Apple) 148 gm 1X ONCE PO ; Start 09/13/19 at 11:45; Stop 09/13/19 at 11:49; Status DC Potassium Chloride 70 meq/ Magnesium Sulfate 20 meq/ Multivitamins 10 ml/Chromium/ Copper/Manganese/ Seleni/Zn 1 ml/ Insulin Human Regular 15 unit/ Total Parenteral Nutrition/Amino Acids/Dextrose/ Fat Emulsion Intravenous 1,800 ml @ 75 mls/hr TPN CONT IV Last administered on 09/13/19at 22:27; Start 09/13/19 at 22:00; Stop 09/14/19 at 21:59; Status DC Piperacillin Sod/ Tazobactam Sod 3.375 gm/Sodium Chloride 50 ml @ 100 mls/hr Q6HRS IV Last administered on 09/22/19at 06:10; Start 09/14/19 at 12:00; Stop 09/22/19 at 07:26; Status DC Potassium Chloride 70 meq/ Magnesium Sulfate 20 meq/ Multivitamins 10 ml/Chromium/ Copper/Manganese/ Seleni/Zn 1 ml/ Insulin Human Regular 15 unit/ Total Parenteral Nutrition/Amino Acids/Dextrose/ Fat Emulsion Intravenous 1,800 ml @ 75 mls/hr TPN CONT IV Last administered on 09/14/19at 22:03; Start 09/14/19 at 22:00; Stop 09/15/19 at 21:59; Status DC Potassium Chloride 70 meq/ Magnesium Sulfate 20 meq/ Multivitamins 10 ml/Chromium/ Copper/Manganese/ Seleni/Zn 1 ml/ Insulin Human Regular 15 unit/ Total Parenteral Nutrition/Amino Acids/Dextrose/ Fat Emulsion Intravenous 1,800 ml @ 75 mls/hr TPN CONT IV Last administered on 09/15/19at 22:33; Start 09/15/19 at 22:00; Stop 09/16/19 at 21:59; Status DC Potassium Chloride 70 meq/ Magnesium Sulfate 20 meq/ Multivitamins 10 ml/Chromium/ Copper/Manganese/ Seleni/Zn 1 ml/ Insulin Human Regular 15 unit/ Total Parenteral Nutrition/Amino Acids/Dextrose/ Fat Emulsion Intravenous 1,800 ml @ 75 mls/hr TPN CONT IV Last administered on 09/16/19at 23:13; Start 09/16/19 at 22:00; Stop 09/17/19 at 21:59; Status DC Potassium Chloride 80 meq/ Magnesium Sulfate 20 meq/ Multivitamins 10 ml/Chromium/ Copper/Manganese/ Seleni/Zn 1 ml/ Insulin Human Regular 15 unit/ Total Parenteral Nutrition/Amino Acids/Dextrose/ Fat Emulsion Intravenous 1,800 ml @ 75 mls/hr TPN CONT IV Last administered on 09/17/19at 22:30; Start 09/17/19 at 22:00; Stop 09/18/19 at 21:59; Status DC Potassium Chloride 80 meq/ Magnesium Sulfate 20 meq/ Multivitamins 10 ml/Chromium/ Copper/Manganese/ Seleni/Zn 1 ml/ Insulin Human Regular 15 unit/ Total Parenteral Nutrition/Amino Acids/Dextrose/ Fat Emulsion Intravenous 1,800 ml @ 75 mls/hr TPN CONT IV Last administered on 09/18/19at 21:54; Start 09/18/19 at 22:00; Stop 09/19/19 at 21:59; Status DC Potassium Chloride/Water 100 ml @ 100 mls/hr 1X ONCE IV Last administered on 09/19/19at 10:15; Start 09/19/19 at 10:00; Stop 09/19/19 at 10:59; Status DC Potassium Chloride 90 meq/ Magnesium Sulfate 20 meq/ Multivitamins 10 ml/Chromium/ Copper/Manganese/ Seleni/Zn 1 ml/ Insulin Human Regular 20 unit/ Total Parenteral Nutrition/Amino Acids/Dextrose/ Fat Emulsion Intravenous 1,800 ml @ 75 mls/hr TPN CONT IV Last administered on 09/19/19at 22:28; Start 09/19/19 at 22:00; Stop 09/20/19 at 21:59; Status DC Potassium Chloride 90 meq/ Magnesium Sulfate 20 meq/ Multivitamins 10 ml/Chromium/ Copper/Manganese/ Seleni/Zn 1 ml/ Insulin Human Regular 20 unit/ Total Parenteral Nutrition/Amino Acids/Dextrose/ Fat Emulsion Intravenous 1,800 ml @ 75 mls/hr TPN CONT IV Last administered on 09/20/19at 22:08; Start 09/20/19 at 22:00; Stop 09/21/19 at 21:59; Status DC Lorazepam (Ativan Inj) 0.25 mg PRN Q4HRS PRN IVP ANXIETY / AGITATION Last administered on 10/15/19at 13:37; Start 09/21/19 at 07:30 Potassium Chloride 90 meq/ Magnesium Sulfate 20 meq/ Multivitamins 10 ml/Chromium/ Copper/Manganese/ Seleni/Zn 1 ml/ Insulin Human Regular 20 unit/ Total Parenteral Nutrition/Amino Acids/Dextrose/ Fat Emulsion Intravenous 1,800 ml @ 75 mls/hr TPN CONT IV Last administered on 09/21/19at 23:13; Start 09/21/19 at 22:00; Stop 09/22/19 at 21:59; Status DC Furosemide (Lasix) 40 mg DAILY IVP Last administered on 09/23/19at 11:14; Start 09/21/19 at 13:30; Stop 09/25/19 at 09:12; Status DC Fluoxetine HCl (PROzac) 20 mg QHS PEG Last administered on 10/15/19at 21:52; Start 09/22/19 at 21:00 Fentanyl (Duragesic 50mcg/ Hr Patch) 1 patch Q72H TD Last administered on 09/22/19at 21:22; Start 09/22/19 at 21:00; Stop 10/01/19 at 12:00; Status DC Potassium Chloride 40 meq/ Potassium Acetate 60 meq/Magnesium Sulfate 10 meq/ Multivitamins 10 ml/Chromium/ Copper/Manganese/ Seleni/Zn 1 ml/ Insulin Human Regular 20 unit/ Total Parenteral Nutrition/Amino Acids/Dextrose/ Fat Emulsion Intravenous 1,800 ml @ 75 mls/hr TPN CONT IV Last administered on 09/23/19at 00:03; Start 09/22/19 at 22:00; Stop 09/23/19 at 21:59; Status DC Potassium Acetate 80 meq/Magnesium Sulfate 5 meq/ Multivitamins 10 ml/Chromium/ Copper/Manganese/ Seleni/Zn 1 ml/ Insulin Human Regular 20 unit/ Total Paren teral Nutrition/Amino Acids/Dextrose/ Fat Emulsion Intravenous 1,920 ml @ 80 mls/hr TPN CONT IV Last administered on 09/23/19at 21:59; Start 09/23/19 at 22:00; Stop 09/24/19 at 21:59; Status DC Potassium Acetate 60 meq/Magnesium Sulfate 5 meq/ Multivitamins 10 ml/Chromium/ Copper/Manganese/ Seleni/Zn 1 ml/ Insulin Human Regular 30 unit/ Total Parenteral Nutrition/Amino Acids/Dextrose/ Fat Emulsion Intravenous 1,920 ml @ 80 mls/hr TPN CONT IV Last administered on 09/24/19at 21:54; Start 09/24/19 at 22:00; Stop 09/25/19 at 21:59; Status DC Norepinephrine Bitartrate 8 mg/ Dextrose 258 ml @ 13.332 mls/ hr CONT PRN IV PER PROTOCOL Last administered on 6/7/20at 21:46; Start 09/25/19 at 06:30 Albumin Human 500 ml @ 125 mls/hr 1X ONCE IV Last administered on 09/25/19at 08:10; Start 09/25/19 at 08:15; Stop 09/25/19 at 12:14; Status DC Potassium Acetate 40 meq/Magnesium Sulfate 5 meq/ Multivitamins 10 ml/Chromium/ Copper/Manganese/ Seleni/Zn 1 ml/ Insulin Human Regular 30 unit/ Total Parenteral Nutrition/Amino Acids/Dextrose/ Fat Emulsion Intravenous 1,920 ml @ 80 mls/hr TPN CONT IV Last administered on 09/25/19at 22:23; Start 09/25/19 at 22:00; Stop 09/26/19 at 21:59; Status DC Meropenem 1 gm/ Sodium Chloride 100 ml @ 200 mls/hr Q8HRS IV ; Start 09/25/19 at 14:00; Status Cancel Meropenem 1 gm/ Sodium Chloride 100 ml @ 200 mls/hr Q8HRS IV Last administered on 09/25/19at 11:04; Start 09/25/19 at 10:00; Stop 09/25/19 at 13:00; Status DC Meropenem 1 gm/ Sodium Chloride 100 ml @ 200 mls/hr Q12HR IV Last administered on 10/13/19at 08:27; Start 09/25/19 at 21:00; Stop 10/13/19 at 08:56; Status DC Sodium Chloride 1,000 ml @ 1,000 mls/hr 1X ONCE IV Last administered on 09/25/19at 11:06; Start 09/25/19 at 10:45; Stop 09/25/19 at 11:44; Status DC Micafungin Sodium 100 mg/Dextrose 100 ml @ 100 mls/hr Q24H IV Last administered on 10/12/19at 12:34; Start 09/25/19 at 11:00; Stop 10/13/19 at 08:56; Status DC Daptomycin 410 mg/ Sodium Chloride 50 ml @ 100 mls/hr Q24H IV Last administered on 09/27/19at 13:33; Start 09/25/19 at 14:00; Stop 09/28/19 at 08:30; Status DC Midazolam HCl (Versed) 2 mg STK-MED ONCE .ROUTE ; Start 09/25/19 at 14:47; Stop 09/25/19 at 14:48; Status DC Fentanyl Citrate (Fentanyl 2ml Vial) 100 mcg STK-MED ONCE .ROUTE ; Start 09/25/19 at 14:47; Stop 09/25/19 at 14:48; Status DC Flumazenil (Romazicon) 0.5 mg STK-MED ONCE IV ; Start 09/25/19 at 14:48; Stop 09/25/19 at 14:48; Status DC Naloxone HCl (Narcan) 0.4 mg STK-MED ONCE .ROUTE ; Start 09/25/19 at 14:48; Stop 09/25/19 at 14:48; Status DC Lidocaine HCl (Lidocaine 1% 20ml Vial) 20 ml STK-MED ONCE .ROUTE ; Start 09/25/19 at 14:48; Stop 09/25/19 at 14:48; Status DC Midazolam HCl (Versed) 2 mg 1X ONCE IV Last administered on 09/25/19at 15:28; Start 09/25/19 at 15:00; Stop 09/25/19 at 15:01; Status DC Fentanyl Citrate (Fentanyl 2ml Vial) 100 mcg 1X ONCE IV Last administered on 09/25/19at 15:28; Start 09/25/19 at 15:00; Stop 09/25/19 at 15:01; Status DC Lidocaine HCl (Lidocaine 1% 20ml Vial) 20 ml 1X ONCE INJ Last administered on 09/25/19at 15:30; Start 09/25/19 at 15:00; Stop 09/25/19 at 15:01; Status DC Sodium Chloride 1,000 ml @ 100 mls/hr Q10H IV Last administered on 10/04/19at 07:30; Start 09/25/19 at 20:00; Stop 10/04/19 at 11:26; Status DC Sodium Bicarbonate (Sodium Bicarb Adult 8.4% Syr) 50 meq 1X ONCE IV Last administered on 09/25/19at 21:47; Start 09/25/19 at 22:00; Stop 09/25/19 at 22:01; Status DC Potassium Acetate 40 meq/Magnesium Sulfate 5 meq/ Multivitamins 10 ml/Chromium/ Copper/Manganese/ Seleni/Zn 1 ml/ Insulin Human Regular 30 unit/ Total Parenteral Nutrition/Amino Acids/Dextrose/ Fat Emulsion Intravenous 1,920 ml @ 80 mls/hr TPN CONT IV Last administered on 09/26/19at 22:28; Start 09/26/19 at 22:00; Stop 09/27/19 at 21:59; Status DC Sodium Chloride 500 ml @ 500 mls/hr 1X ONCE IV Last administered on 09/27/19at 06:39; Start 09/27/19 at 06:45; Stop 09/27/19 at 07:44; Status DC Potassium Acetate 40 meq/Magnesium Sulfate 5 meq/ Multivitamins 10 ml/Chromium/ Copper/Manganese/ Seleni/Zn 1 ml/ Insulin Human Regular 30 unit/ Total Parenteral Nutrition/Amino Acids/Dextrose/ Fat Emulsion Intravenous 1,920 ml @ 80 mls/hr TPN CONT IV Last administered on 09/27/19at 22:03; Start 09/27/19 at 22:00; Stop 09/28/19 at 21:59; Status DC Metoprolol Tartrate (Lopressor Vial) 5 mg PRN Q6HRS PRN IVP HYPERTENSION Last administered on 10/06/19at 10:14; Start 09/28/19 at 09:00 Potassium Acetate 40 meq/Magnesium Sulfate 5 meq/ Multivitamins 10 ml/Chromium/ Copper/Manganese/ Seleni/Zn 1 ml/ Insulin Human Regular 30 unit/ Total Parenteral Nutrition/Amino Acids/Dextrose/ Fat Emulsion Intravenous 1,920 ml @ 80 mls/hr TPN CONT IV Last administered on 09/28/19at 21:26; Start 09/28/19 at 22:00; Stop 09/29/19 at 21:59; Status DC Potassium Acetate 40 meq/Magnesium Sulfate 5 meq/ Multivitamins 10 ml/Chromium/ Copper/Manganese/ Seleni/Zn 1 ml/ Insulin Human Regular 30 unit/ Total Parenteral Nutrition/Amino Acids/Dextrose/ Fat Emulsion Intravenous 1,920 ml @ 80 mls/hr TPN CONT IV Last administered on 09/29/19at 23:23; Start 09/29/19 at 22:00; Stop 09/30/19 at 21:59; Status DC Potassium Acetate 40 meq/Magnesium Sulfate 5 meq/ Multivitamins 10 ml/Chromium/ Copper/Manganese/ Seleni/Zn 1 ml/ Insulin Human Regular 30 unit/ Total Par enteral Nutrition/Amino Acids/Dextrose/ Fat Emulsion Intravenous 1,920 ml @ 80 mls/hr TPN CONT IV Last administered on 09/30/19at 21:35; Start 09/30/19 at 22:00; Stop 10/01/19 at 21:59; Status DC Furosemide (Lasix) 20 mg 1X ONCE IVP Last administered on 10/01/19at 06:26; Start 10/01/19 at 06:15; Stop 10/01/19 at 06:16; Status DC Methylprednisolone Sodium Succinate (SOLU-Medrol 125MG VIAL) 125 mg 1X ONCE IV Last administered on 10/01/19at 06:26; Start 10/01/19 at 06:15; Stop 10/01/19 at 06:16; Status DC Albuterol/ Ipratropium (Duoneb) 3 ml Q4HRS NEB Last administered on 10/16/19at 08:43; Start 10/01/19 at 08:00 Fentanyl Citrate 30 ml @ 0 mls/hr CONT PRN IV SEE PROTOCOL Last administered on 10/15/19at 23:26; Start 10/01/19 at 06:00 Propofol 100 ml @ 0 mls/hr CONT PRN IV SEE PROTOCOL Last administered on 10/08/19at 23:50; Start 10/01/19 at 06:00 Fentanyl Citrate (Fentanyl 2ml Vial) 25 mcg PRN Q1HR PRN IV SEE COMMENTS; Start 10/01/19 at 06:00 Fentanyl Citrate (Fentanyl 2ml Vial) 50 mcg PRN Q1HR PRN IV SEE COMMENTS; Start 10/01/19 at 06:00 Chlorhexidine Gluconate (Peridex) 15 ml BID MM ; Start 10/01/19 at 09:00; Stop 10/01/19 at 07:58; Status DC Potassium Acetate 40 meq/Magnesium Sulfate 5 meq/ Multivitamins 10 ml/Chromium/ Copper/Manganese/ Seleni/Zn 1 ml/ Insulin Human Regular 30 unit/ Total Parenteral Nutrition/Amino Acids/Dextrose/ Fat Emulsion Intravenous 1,920 ml @ 80 mls/hr TPN CONT IV Last administered on 10/01/19at 21:19; Start 10/01/19 at 22:00; Stop 10/02/19 at 21:59; Status DC Acetylcysteine (Mucomyst 20% Resp Treatment) 600 mg BID NEB Last administered on 10/07/19at 09:33; Start 10/01/19 at 21:00; Stop 10/07/19 at 10:39; Status DC Magnesium Sulfate 100 ml @ 25 mls/hr 1X ONCE IV Last administered on 10/01/19at 15:48; Start 10/01/19 at 15:45; Stop 10/01/19 at 19:44; Status DC Potassium Acetate 40 meq/Magnesium Sulfate 5 meq/ Multivitamins 10 ml/Chromium/ Copper/Manganese/ Seleni/Zn 1 ml/ Insulin Human Regular 30 unit/ Total Parenteral Nutrition/Amino Acids/Dextrose/ Fat Emulsion Intravenous 1,920 ml @ 80 mls/hr TPN CONT IV Last administered on 10/02/19at 21:35; Start 10/02/19 at 22:00; Stop 10/03/19 at 21:59; Status DC Potassium Chloride/Water 100 ml @ 100 mls/hr Q1H IV Last administered on 10/03/19at 08:31; Start 10/03/19 at 07:00; Stop 10/03/19 at 08:59; Status DC Potassium Acetate 40 meq/Magnesium Sulfate 5 meq/ Multivitamins 10 ml/Chromium/ Copper/Manganese/ Seleni/Zn 1 ml/ Insulin Human Regular 30 unit/ Total Parenteral Nutrition/Amino Acids/Dextrose/ Fat Emulsion Intravenous 1,920 ml @ 80 mls/hr TPN CONT IV Last administered on 10/03/19at 21:54; Start 10/03/19 at 22:00; Stop 10/04/19 at 19:34; Status DC Lidocaine HCl (Buffered Lidocaine 1%) 3 ml STK-MED ONCE .ROUTE ; Start 10/03/19 at 12:14; Stop 10/03/19 at 12:14; Status DC Lidocaine HCl (Buffered Lidocaine 1%) 3 ml 1X ONCE IJ Last administered on 10/03/19at 13:11; Start 10/03/19 at 13:00; Stop 10/03/19 at 13:01; Status DC Magnesium Sulfate 50 ml @ 25 mls/hr 1X ONCE IV ; Start 10/04/19 at 08:15; Stop 10/04/19 at 10:14; Status DC Potassium Acetate 40 meq/Magnesium Sulfate 10 meq/ Multivitamins 10 ml/Chromium/ Copper/Manganese/ Seleni/Zn 1 ml/ Insulin Human Regular 20 unit/ Total Parenteral Nutrition/Amino Acids/Dextrose/ Fat Emulsion Intravenous 1,920 ml @ 80 mls/hr TPN CONT IV Last administered on 10/04/19at 21:32; Start 10/04/19 at 22:00; Stop 10/05/19 at 21:59; Status DC Potassium Chloride/Water 100 ml @ 100 mls/hr Q1H IV Last administered on 10/05/19at 09:12; Start 10/05/19 at 08:00; Stop 10/05/19 at 09:59; Status DC Alteplase, Recombinant (Cathflo For Central Catheter Clearance) 4 mg 1X ONCE INT CAT ; Start 10/05/19 at 09:15; Stop 10/05/19 at 09:16; Status UNV Alteplase, Recombinant (Cathflo For Central Catheter Clearance) 4 mg 1X ONCE INT CAT ; Start 10/05/19 at 09:15; Stop 10/05/19 at 09:16; Status UNV Alteplase, Recombinant (Cathflo For Central Catheter Clearance) 4 mg 1X ONCE INT CAT ; Start 10/05/19 at 09:15; Stop 10/05/19 at 09:16; Status UNV Alteplase, Recombinant 4 mg/ Sodium Chloride 20 ml @ 20 mls/hr 1X ONCE IV Last administered on 10/05/19at 10:10; Start 10/05/19 at 10:00; Stop 10/05/19 at 10:59; Status DC Alteplase, Recombinant 4 mg/ Sodium Chloride 20 ml @ 20 mls/hr 1X ONCE IV Last administered on 10/05/19at 10:09; Start 10/05/19 at 10:00; Stop 10/05/19 at 10:59; Status DC Alteplase, Recombinant 4 mg/ Sodium Chloride 20 ml @ 20 mls/hr 1X ONCE IV Last administered on 10/05/19at 10:09; Start 10/05/19 at 10:00; Stop 10/05/19 at 10:59; Status DC Potassium Acetate 60 meq/Magnesium Sulfate 10 meq/ Multivitamins 10 ml/Chromium/ Copper/Manganese/ Seleni/Zn 1 ml/ Insulin Human Regular 20 unit/ Total Parenteral Nutrition/Amino Acids/Dextrose/ Fat Emulsion Intravenous 1,920 ml @ 80 mls/hr TPN CONT IV Last administered on 10/05/19at 21:55; Start 10/05/19 at 22:00; Stop 10/06/19 at 21:59; Status DC Albumin Human 500 ml @ 125 mls/hr 1X ONCE IV Last administered on 10/06/19at 12:01; Start 10/06/19 at 11:15; Stop 10/06/19 at 15:14; Status DC Sodium Chloride 500 ml @ 500 mls/hr 1X ONCE IV Last administered on 10/06/19at 13:50; Start 10/06/19 at 11:15; Stop 10/06/19 at 12:14; Status DC Potassium Acetate 60 meq/Magnesium Sulfate 14 meq/ Multivitamins 10 ml/Chromium/ Copper/Manganese/ Seleni/Zn 1 ml/ Insulin Human Regular 20 unit/ Total Parenteral Nutrition/Amino Acids/Dextrose/ Fat Emulsion Intravenous 1,920 ml @ 80 mls/hr TPN CONT IV Last administered on 10/06/19at 22:26; Start 10/06/19 at 22:00; Stop 10/07/19 at 21:59; Status DC Ciprofloxacin/ Dextrose 200 ml @ 200 mls/hr Q12HR IV Last administered on at 08:27; Start 10/06/19 at 21:00; Stop 10/13/19 at 08:56; Status DC Albumin Human 250 ml @ 62.5 mls/hr 1X ONCE IV Last administered on 10/07/19at 11:09; Start 10/07/19 at 11:00; Stop 10/07/19 at 14:59; Status DC Furosemide (Lasix) 20 mg 1X ONCE IVP Last administered on 10/07/19at 14:52; Start 10/07/19 at 10:45; Stop 10/07/19 at 10:49; Status DC Potassium Acetate 60 meq/Magnesium Sulfate 14 meq/ Multivitamins 10 ml/Chromium/ Copper/Manganese/ Seleni/Zn 1 ml/ Insulin Human Regular 15 unit/ Total P arenteral Nutrition/Amino Acids/Dextrose/ Fat Emulsion Intravenous 1,920 ml @ 80 mls/hr TPN CONT IV Last administered on 10/07/19at 22:08; Start 10/07/19 at 22:00; Stop 10/08/19 at 21:59; Status DC Potassium Acetate 60 meq/Magnesium Sulfate 14 meq/ Multivitamins 10 ml/Chromium/ Copper/Manganese/ Seleni/Zn 1 ml/ Insulin Human Regular 15 unit/ Total Parenteral Nutrition/Amino Acids/Dextrose/ Fat Emulsion Intravenous 1,920 ml @ 80 mls/hr TPN CONT IV Last administered on 10/08/19at 22:12; Start 10/08/19 at 22:00; Stop 10/09/19 at 21:59; Status DC Potassium Acetate 60 meq/Magnesium Sulfate 14 meq/ Multivitamins 10 ml/Chromium/ Copper/Manganese/ Seleni/Zn 1 ml/ Insulin Human Regular 15 unit/ Total Parenteral Nutrition/Amino Acids/Dextrose/ Fat Emulsion Intravenous 1,920 ml @ 80 mls/hr TPN CONT IV Last administered on 10/09/19at 22:22; Start 10/09/19 at 22:00; Stop 10/10/19 at 21:59; Status DC Furosemide (Lasix) 20 mg 1X ONCE IVP Last administered on 10/10/19at 11:07; Start 10/10/19 at 10:30; Stop 10/10/19 at 10:34; Status DC Potassium Acetate 60 meq/Magnesium Sulfate 14 meq/ Multivitamins 10 ml/Chromium/ Copper/Manganese/ Seleni/Zn 1 ml/ Insulin Human Regular 15 unit/ Sodium Chloride 20 meq/Total Parenteral Nutrition/Amino Acids/Dextrose/ Fat Emulsion Intravenous 1,920 ml @ 80 mls/hr TPN CONT IV Last administered on 10/10/19at 21:54; Start 10/10/19 at 22:00; Stop 10/11/19 at 21:59; Status DC Potassium Acetate 30 meq/Magnesium Sulfate 14 meq/ Multivitamins 10 ml/Chromium/ Copper/Manganese/ Seleni/Zn 1 ml/ Insulin Human Regular 15 unit/ Sodium Chloride 20 meq/Potassium Chloride 30 meq/ Total Parenteral Nutrition/Amino Acids/Dextro se/ Fat Emulsion Intravenous 1,920 ml @ 80 mls/hr TPN CONT IV Last administered on 10/11/19at 21:46; Start 10/11/19 at 22:00; Stop 10/12/19 at 21:59; Status DC Sodium Chloride 80 meq/Potassium Chloride 30 meq/ Potassium Acetate 30 meq/Magnesium Sulfate 14 meq/ Multivitamins 10 ml/Chromium/ Copper/Manganese/ Seleni/Zn 1 ml/ Insulin Human Regular 15 unit/ Total Parenteral Nutrition/Amino Acids/Dextrose/ Fat Emulsion Intravenous 1,920 ml @ 80 mls/hr TPN CONT IV Last administered on 10/12/19at 22:33; Start 10/12/19 at 22:00; Stop 10/13/19 at 21:59; Status DC Furosemide (Lasix) 40 mg 1X ONCE IVP Last administered on 10/12/19at 16:27; Start 10/12/19 at 15:30; Stop 10/12/19 at 15:33; Status DC Albumin Human 250 ml @ 62.5 mls/hr 1X ONCE IV Last administered on 10/12/19at 16:27; Start 10/12/19 at 15:30; Stop 10/12/19 at 19:29; Status DC Sodium Chloride 80 meq/Potassium Chloride 30 meq/ Potassium Acetate 30 meq/Magnesium Sulfate 14 meq/ Multivitamins 10 ml/Chromium/ Copper/Manganese/ Seleni/Zn 1 ml/ Insulin Human Regular 15 unit/ Total Parenteral Nutrition/Amino Acids/Dextrose/ Fat Emulsion Intravenous 1,920 ml @ 80 mls/hr TPN CONT IV Last administered on 10/13/19at 22:25; Start 10/13/19 at 22:00; Stop 10/14/19 at 21:59; Status DC Sodium Chloride 80 meq/Potassium Chloride 30 meq/ Potassium Acetate 30 meq/Magnesium Sulfate 14 meq/ Multivitamins 10 ml/Chromium/ Copper/Manganese/ Seleni/Zn 1 ml/ Insulin Human Regular 15 unit/ Total Parenteral Nutrition/Amino Acids/Dextrose/ Fat Emulsion Intravenous 1,920 ml @ 80 mls/hr TPN CONT IV Last administered on 10/14/19at 21:32; Start 10/14/19 at 22:00; Stop 10/15/19 at 21:59; Status DC Sodium Chloride 80 meq/Potassium Chloride 30 meq/ Potassium Acetate 30 meq/Magnesium Sulfate 14 meq/ Multivitamins 10 ml/Chromium/ Copper/Manganese/ Seleni/Zn 1 ml/ Insulin Human Regular 15 unit/ Total Parenteral Nutrition/Amino Acids/Dextrose/ Fat Emulsion Intravenous 1,920 ml @ 80 mls/hr TPN CONT IV Last administered on 10/15/19at 21:53; Start 10/15/19 at 22:00; Stop 10/16/19 at 21:59 Acetylcysteine (Mucomyst 20% Resp Treatment) 600 mg RTBID NEB Last administered on 10/16/19at 09:50; Start 10/15/19 at 12:00 Sodium Chloride 80 meq/Potassium Chloride 30 meq/ Potassium Acetate 30 meq/Magnesium Sulfate 14 meq/ Multivitamins 10 ml/Chromium/ Copper/Manganese/ Seleni/Zn 1 ml/ Insulin Human Regular 15 unit/ Total Parenteral Nutrition/Amino Acids/Dextrose/ Fat Emulsion Intravenous 1,920 ml @ 80 mls/hr TPN CONT IV ; Start 10/16/19 at 22:00; Stop 10/17/19 at 21:59 Active Scripts Active Reported Bisoprolol Fumarate 5 Mg Tablet 10 Mg PO DAILY Vitals/I & O Vital Sign - Last 24 Hours 10/15/19 10/15/19 10/15/19 10/15/19 12:00 12:32 14:00 16:00 Temp 100.2 99.0 100.2 99.0 Pulse 130 111 Resp 30 28 B/P (MAP) 118/84 (95) 110/64 (79) Pulse Ox 94 98 97 O2 Delivery Tracheal Collar Tracheal Collar Trach Collar Tracheal Collar O2 Flow Rate 8.0 10/15/19 10/15/19 10/15/19 10/15/19 16:25 19:40 20:00 20:00 Temp 97.9 97.9 Pulse 101 Resp 26 B/P (MAP) 99/57 (71) Pulse Ox 96 98 99 O2 Delivery Tracheal Collar Tracheal Collar Tracheal Collar Trach Collar O2 Flow Rate 8.0 8.0 10/15/19 10/15/19 10/15/19 10/16/19 23:16 23:26 23:55 00:00 Temp 99.2 99.2 Pulse 111 Resp 20 24 22 B/P (MAP) 99/75 (83) Pulse Ox 96 99 99 O2 Delivery Tracheal Collar Tracheal Collar Tracheal Collar O2 Flow Rate 8.0 8.0 10/16/19 10/16/19 10/16/19 10/16/19 04:00 05:05 07:31 08:00 Temp 99.2 99.0 99.2 99.0 Pulse 109 111 Resp 20 32 B/P (MAP) 112/66 (81) 127/78 (94) Pulse Ox 100 100 100 O2 Delivery Tracheal Collar Tracheal Collar Trach Collar Tracheal Collar O2 Flow Rate 8.0 10/16/19 10/16/19 09:00 10:00 Pulse 110 108 Resp 30 32 B/P (MAP) 123/72 (89) 130/70 (90) Pulse Ox 100 100 O2 Delivery Tracheal Collar Tracheal Collar Intake and Output 10/15/19 10/15/19 10/16/19 15:00 23:00 07:00 Intake Total 921 ml 1008.9 ml Output Total 900 ml 910 ml Balance 21 ml 98.9 ml Hemodynamically unstable?: No Is patient in severe pain?: No Is NPO status required?: No NIELS MCGILL MD Oct 16, 2019 10:51
--- NOTE | 2019-10-16 11:48 | PDOC ---
SURGICAL PROGRESS NOTE Subjective Pt awake appears comfortable Vital Signs Vital Signs Date Time Temp Pulse Resp B/P (MAP) Pulse Ox O2 Delivery O2 Flow Rate FiO2 10/16/19 11:00 106 28 104/66 (79) 100 Tracheal Collar 10/16/19 08:00 99.0 99.0 10/16/19 05:05 8.0 I&O Intake and Output 10/16/19 07:00 Intake Total 1929.9 ml Output Total 1810 ml Balance 119.9 ml IV Total 1929.9 ml Output Urine Total 1450 ml Gastric Drainage Total 300 ml Chest Tube Drainage Total 60 ml Drainage Total 0 ml General: Alert, Cooperative, No acute distress Abdomen: Soft, No tenderness, Other (drains with pancreatic necrosis) Labs Laboratory Tests Test 10/14/19 13:10 10/14/19 17:54 10/15/19 00:20 10/15/19 06:07 Glucose (Fingerstick) 134 mg/dL (70-99) 117 mg/dL (70-99) 143 mg/dL (70-99) 134 mg/dL (70-99) Test 10/15/19 12:15 10/15/19 17:30 10/16/19 00:30 10/16/19 06:06 O2 Saturation 95 % (92-99) Arterial Blood pH 7.41 (7.35-7.45) Arterial Blood pCO2 at Patient Temp 54 mmHg (35-46) Arterial Blood pO2 at Patient Temp 79 mmHg (75-108) Arterial Blood HCO3 34 mmol/L (21-28) Arterial Blood Base Excess 8 mmol/L (-3-3) FiO2 33 Glucose (Fingerstick) 135 mg/dL (70-99) 121 mg/dL (70-99) 128 mg/dL (70-99) Test 10/16/19 08:15 10/16/19 08:45 White Blood Count 12.4 x10^3/uL (4.0-11.0) Red Blood Count 3.06 x10^6/uL (3.50-5.40) Hemoglobin 8.5 g/dL (12.0-15.5) Hematocrit 26.0 % (36.0-47.0) Mean Corpuscular Volume 85 fL (79-100) Mean Corpuscular Hemoglobin 28 pg (25-35) Mean Corpuscular Hemoglobin Concent 33 g/dL (31-37) Red Cell Distribution Width 17.7 % (11.5-14.5) Platelet Count 394 x10^3/uL (140-400) Neutrophils (%) (Auto) 78 % (31-73) Lymphocytes (%) (Auto) 12 % (24-48) Monocytes (%) (Auto) 8 % (0-9) Eosinophils (%) (Auto) 2 % (0-3) Basophils (%) (Auto) 0 % (0-3) Neutrophils # (Auto) 9.7 x10^3/uL (1.8-7.7) Lymphocytes # (Auto) 1.4 x10^3/uL (1.0-4.8) Monocytes # (Auto) 1.0 x10^3/uL (0.0-1.1) Eosinophils # (Auto) 0.2 x10^3/uL (0.0-0.7) Basophils # (Auto) 0.0 x10^3/uL (0.0-0.2) Sodium Level 137 mmol/L (136-145) Potassium Level 4.5 mmol/L (3.5-5.1) Chloride Level 101 mmol/L (98-107) Carbon Dioxide Level 35 mmol/L (21-32) Anion Gap 1 (6-14) Blood Urea Nitrogen 16 mg/dL (7-20) Creatinine 0.6 mg/dL (0.6-1.0) Estimated GFR (Cockcroft-Gault) 106.3 Glucose Level 129 mg/dL (70-99) Calcium Level 10.5 mg/dL (8.5-10.1) Magnesium Level 2.0 mg/dL (1.8-2.4) O2 Saturation 97 % (92-99) Arterial Blood pH 7.41 (7.35-7.45) Arterial Blood pCO2 at Patient Temp 55 mmHg (35-46) Arterial Blood pO2 at Patient Temp 108 mmHg (75-108) Arterial Blood HCO3 34 mmol/L (21-28) Arterial Blood Base Excess 8 mmol/L (-3-3) FiO2 33 Laboratory Tests Test 10/15/19 12:15 10/15/19 17:30 10/16/19 00:30 10/16/19 06:06 O2 Saturation 95 % (92-99) Arterial Blood pH 7.41 (7.35-7.45) Arterial Blood pCO2 at Patient Temp 54 mmHg (35-46) Arterial Blood pO2 at Patient Temp 79 mmHg (75-108) Arterial Blood HCO3 34 mmol/L (21-28) Arterial Blood Base Excess 8 mmol/L (-3-3) FiO2 33 Glucose (Fingerstick) 135 mg/dL (70-99) 121 mg/dL (70-99) 128 mg/dL (70-99) Test 10/16/19 08:15 10/16/19 08:45 White Blood Count 12.4 x10^3/uL (4.0-11.0) Red Blood Count 3.06 x10^6/uL (3.50-5.40) Hemoglobin 8.5 g/dL (12.0-15.5) Hematocrit 26.0 % (36.0-47.0) Mean Corpuscular Volume 85 fL (79-100) Mean Corpuscular Hemoglobin 28 pg (25-35) Mean Corpuscular Hemoglobin Concent 33 g/dL (31-37) Red Cell Distribution Width 17.7 % (11.5-14.5) Platelet Count 394 x10^3/uL (140-400) Neutrophils (%) (Auto) 78 % (31-73) Lymphocytes (%) (Auto) 12 % (24-48) Monocytes (%) (Auto) 8 % (0-9) Eosinophils (%) (Auto) 2 % (0-3) Basophils (%) (Auto) 0 % (0-3) Neutrophils # (Auto) 9.7 x10^3/uL (1.8-7.7) Lymphocytes # (Auto) 1.4 x10^3/uL (1.0-4.8) Monocytes # (Auto) 1.0 x10^3/uL (0.0-1.1) Eosinophils # (Auto) 0.2 x10^3/uL (0.0-0.7) Basophils # (Auto) 0.0 x10^3/uL (0.0-0.2) Sodium Level 137 mmol/L (136-145) Potassium Level 4.5 mmol/L (3.5-5.1) Chloride Level 101 mmol/L (98-107) Carbon Dioxide Level 35 mmol/L (21-32) Anion Gap 1 (6-14) Blood Urea Nitrogen 16 mg/dL (7-20) Creatinine 0.6 mg/dL (0.6-1.0) Estimated GFR (Cockcroft-Gault) 106.3 Glucose Level 129 mg/dL (70-99) Calcium Level 10.5 mg/dL (8.5-10.1) Magnesium Level 2.0 mg/dL (1.8-2.4) O2 Saturation 97 % (92-99) Arterial Blood pH 7.41 (7.35-7.45) Arterial Blood pCO2 at Patient Temp 55 mmHg (35-46) Arterial Blood pO2 at Patient Temp 108 mmHg (75-108) Arterial Blood HCO3 34 mmol/L (21-28) Arterial Blood Base Excess 8 mmol/L (-3-3) FiO2 33 Problem List Problems Medical Problems: (1) Acute pancreatitis Status: Acute (2) Cholelithiasis Status: Acute Assessment/Plan severe pancreatic necrosis pt appears stable. Pt in holding pattern at this point without significant improvement. Favor proceeding with pancreatic necrosectomy, cholecystectomy with cholang iogram and feeling tube. D/w pt's supportive daughter extensively at bedside. R/R/B/A d/w. Risks, bleeding, infection, damage to surrounding structures, risk of anesthesia, risk of persistent drainage, risk of . She is poor candidate at this time, but without intervention unlikely to progress. Recommend proceeding with intervention. She appears to understand, her questions are answered and she elects to proceed. Justicifation of Admission Dx: Justifications for Admission: Justification of Admission Dx: Yes DAVON SIMMS MD Oct 16, 2019 11:48
--- NOTE | 2019-10-16 14:05 | NUR ---
Notified Dr. Gordillo of CXR and shallow breathing without distress and ABG within normal limits, received the order to place patient back on ventilator if patient is in distress but is fine on trach shield at 33% for now. Patient's daughter was at bedside earlier, surgical questions answered by Dr. Servin at the bedside. Patient remains confused but more alert than yesterday, vital signs stable.
--- NOTE | 2019-10-16 17:44 | NUR ---
Turned patient to change dressings, underneath patient was saturated with serosanguineous fluid that had a foul odor. Dressings were changed, patient tolerated well. Underneath patient on coccyx and back, patient appeared slightly mottled, skin was blanchable. Patient began to get slightly tachycardic, checked temperature and it was 101.3, removed blankets and placed fan on patient. Paged Dr. Soy Neri (ID), awaiting call back. Will continue to monitor.
[2019-10-16] MEDS: DAPTOmycin (GENERIC) IVPB 500 MG in IV NORMAL SALINE 50ML 50 ML IV SCH (20:03)
[2019-10-16] MEDS: MEROPENEM 500 MG in IV NORMAL SALINE 50ML 50 ML IV SCH (20:03)
[2019-10-16] MEDS: ACETAMINOPHEN 650 MG SUPP.RECT. PR PRN (20:49)
[2019-10-16] MEDS ORDERED: AMINO ACID IV SCH ×10 (22:00)
[2019-10-16] MEDS ORDERED: TOTAL PARENTERAL NUTRITION IV SCH ×10 (22:00)
[2019-10-16] MEDS ORDERED: [UNRECOGNIZED DRUG - OTHER] IV SCH ×10 (22:00)
[2019-10-16] MEDS ORDERED: DEXTROSE 70% IV SCH ×10 (22:00)
[2019-10-17] VITALS (24 sets, daily range): BP systolic 86–134; BP diastolic 55–89
[2019-10-17] MEDS: IPRATRPIUM/ALBUTEROL 0.5/2.5MG 3 ML NEBU. NEB SCH ×7 (00:10→23:43)
[2019-10-17] MEDS: MEROPENEM 500 MG in IV NORMAL SALINE 50ML 50 ML IV SCH ×4 (00:10→18:16)
[2019-10-17] MEDS: INSULIN LISPRO 300 UNITS/3 ML VIAL. SQ SCH ×4 (05:54→18:00)
[2019-10-17 06:46] LABS: CALCIUM 10.7 mg/dL (8.5-10.1); CREATININE 0.7 mg/dL (0.6-1.0); GFR 88.9; POTASSIUM 4.4 mmol/L (3.5-5.1)
--- NOTE | 2019-10-17 08:31 | PDOC ---
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 Metabolic encephalopathy. Fevers. Metabolic acidosis. Diffuse pulmonary infiltrate. Pleural effusion. Pancreatitis, necrotizing. Gallstone. Leukocytosis. Lymphopenia. Electrolytes imbalances. Hyperglycemia. DM. HTN. HLD. Anemia. Abnormal CXR. Obesity. Ascites and pleural effusion Ileus with vomiting Anemia JUANA Hyperkalemia Metabolic acidosis Hypertension S/P trache, back on vent Anemia S/P IR drain placement, 09/24 Hypotension, intermittently requiring Levophed Plan Note plans for pancreatic necrosectomy, cholecystectomy with cholangiogram and feeling tube. Keppra if she has further seizures. Treat medical diseases. Subjective Indicates no pain Objective Vital Signs Date Time Temp Pulse Resp B/P (MAP) Pulse Ox O2 Delivery O2 Flow Rate FiO2 10/17/19 08:00 98.0 119 24 113/79 (90) 99 Tracheal Collar 98.0 10/17/19 04:15 8.0 Intake and Output 10/17/19 07:00 Intake Total 2298 ml Output Total 1670 ml Balance 628 ml IV Total 2298 ml Output Urine Total 1600 ml Gastric Drainage Total 50 ml Chest Tube Drainage Total 0 ml Drainage Total 20 ml PHYSICAL EXAM Alert, follows commands. Tracheostomy shield. PERRL. EOMI. CN: no focal findings. Muscle tone: normal. Muscle strength: 2-3/5 DTR: 1+ Plantar reflex: Silent Gait: not examined in bed. Sensory exam: normal Cerebellar: normal Review of Relevant I have reviewed the following items kolby (where applicable) has been applied. Labs Laboratory Tests Test 10/15/19 12:15 10/15/19 17:30 10/16/19 00:30 10/16/19 06:06 O2 Saturation 95 % (92-99) Arterial Blood pH 7.41 (7.35-7.45) Arterial Blood pCO2 at Patient Temp 54 mmHg (35-46) Arterial Blood pO2 at Patient Temp 79 mmHg (75-108) Arterial Blood HCO3 34 mmol/L (21-28) Arterial Blood Base Excess 8 mmol/L (-3-3) FiO2 33 Glucose (Fingerstick) 135 mg/dL (70-99) 121 mg/dL (70-99) 128 mg/dL (70-99) Test 10/16/19 08:15 10/16/19 08:45 10/16/19 11:52 10/17/19 00:09 White Blood Count 12.4 x10^3/uL (4.0-11.0) Red Blood Count 3.06 x10^6/uL (3.50-5.40) Hemoglobin 8.5 g/dL (12.0-15.5) Hematocrit 26.0 % (36.0-47.0) Mean Corpuscular Volume 85 fL (79-100) Mean Corpuscular Hemoglobin 28 pg (25-35) Mean Corpuscular Hemoglobin Concent 33 g/dL (31-37) Red Cell Distribution Width 17.7 % (11.5-14.5) Platelet Count 394 x10^3/uL (140-400) Neutrophils (%) (Auto) 78 % (31-73) Lymphocytes (%) (Auto) 12 % (24-48) Monocytes (%) (Auto) 8 % (0-9) Eosinophils (%) (Auto) 2 % (0-3) Basophils (%) (Auto) 0 % (0-3) Neutrophils # (Auto) 9.7 x10^3/uL (1.8-7.7) Lymphocytes # (Auto) 1.4 x10^3/uL (1.0-4.8) Monocytes # (Auto) 1.0 x10^3/uL (0.0-1.1) Eosinophils # (Auto) 0.2 x10^3/uL (0.0-0.7) Basophils # (Auto) 0.0 x10^3/uL (0.0-0.2) Sodium Level 137 mmol/L (136-145) Potassium Level 4.5 mmol/L (3.5-5.1) Chloride Level 101 mmol/L (98-107) Carbon Dioxide Level 35 mmol/L (21-32) Anion Gap 1 (6-14) Blood Urea Nitrogen 16 mg/dL (7-20) Creatinine 0.6 mg/dL (0.6-1.0) Estimated GFR (Cockcroft-Gault) 106.3 Glucose Level 129 mg/dL (70-99) Calcium Level 10.5 mg/dL (8.5-10.1) Magnesium Level 2.0 mg/dL (1.8-2.4) O2 Saturation 97 % (92-99) Arterial Blood pH 7.41 (7.35-7.45) Arterial Blood pCO2 at Patient Temp 55 mmHg (35-46) Arterial Blood pO2 at Patient Temp 108 mmHg (75-108) Arterial Blood HCO3 34 mmol/L (21-28) Arterial Blood Base Excess 8 mmol/L (-3-3) FiO2 33 Glucose (Fingerstick) 128 mg/dL (70-99) 123 mg/dL (70-99) Test 10/17/19 05:53 10/17/19 06:00 Glucose (Fingerstick) 125 mg/dL (70-99) Sodium Level 137 mmol/L (136-145) Potassium Level 4.4 mmol/L (3.5-5.1) Chloride Level 101 mmol/L (98-107) Carbon Dioxide Level 35 mmol/L (21-32) Anion Gap 1 (6-14) Blood Urea Nitrogen 16 mg/dL (7-20) Creatinine 0.7 mg/dL (0.6-1.0) Estimated GFR (Cockcroft-Gault) 88.9 Glucose Level 129 mg/dL (70-99) Calcium Level 10.7 mg/dL (8.5-10.1) Laboratory Tests Test 10/16/19 08:45 10/16/19 11:52 10/17/19 00:09 10/17/19 05:53 O2 Saturation 97 % (92-99) Arterial Blood pH 7.41 (7.35-7.45) Arterial Blood pCO2 at Patient Temp 55 mmHg (35-46) Arterial Blood pO2 at Patient Temp 108 mmHg (75-108) Arterial Blood HCO3 34 mmol/L (21-28) Arterial Blood Base Excess 8 mmol/L (-3-3) FiO2 33 Glucose (Fingerstick) 128 mg/dL (70-99) 123 mg/dL (70-99) 125 mg/dL (70-99) Test 10/17/19 06:00 Sodium Level 137 mmol/L (136-145) Potassium Level 4.4 mmol/L (3.5-5.1) Chloride Level 101 mmol/L (98-107) Carbon Dioxide Level 35 mmol/L (21-32) Anion Gap 1 (6-14) Blood Urea Nitrogen 16 mg/dL (7-20) Creatinine 0.7 mg/dL (0.6-1.0) Estimated GFR (Cockcroft-Gault) 88.9 Glucose Level 129 mg/dL (70-99) Calcium Level 10.7 mg/dL (8.5-10.1) Microbiology 10/06/19 Blood Culture - Final, Complete NO GROWTH AFTER 5 DAYS 10/03/19 Gram Stain - Final, Complete 10/03/19 Aerobic and Anaerobic Culture - Final, Complete 10/01/19 Gram Stain Evaluation - Final, Complete 10/01/19 Respiratory Culture - Final, Complete 10/01/19 Antimicrobic Susceptibility - Final, Complete 09/25/19 Urine Culture - Final, Complete 09/17/19 Gram Stain - Final, Complete 09/17/19 Aerobic Culture - Final, Complete Medications Current Medications Sodium Chloride 1,000 ml @ 1,000 mls/hr Q1H IV Last administered on 07/04/19at 03:00; Start 07/04/19 at 03:00; Stop 07/04/19 at 03:59; Status DC Ondansetron HCl (Zofran) 4 mg 1X ONCE IVP Last administered on 07/04/19at 03:27; Start 07/04/19 at 03:00; Stop 07/04/19 at 03:01; Status DC Morphine Sulfate (Morphine Sulfate) 4 mg 1X ONCE IV ; Start 07/04/19 at 03:00; Stop 07/04/19 at 03:01; Status Cancel Ketorolac Tromethamine (Toradol 30mg Vial) 30 mg 1X ONCE IV Last administered on 07/04/19at 02:54; Start 07/04/19 at 03:00; Stop 07/04/19 at 03:01; Status DC Fentanyl Citrate (Fentanyl 2ml Vial) 25 mcg 1X ONCE IVP Last administered on 07/04/19at 03:23; Start 07/04/19 at 03:30; Stop 07/04/19 at 03:31; Status DC Fentanyl Citrate (Fentanyl 2ml Vial) 100 mcg STK-MED ONCE .ROUTE ; Start 07/04/19 at 03:18; Stop 07/04/19 at 03:18; Status DC Iohexol (Omnipaque 350 Mg/ml) 90 ml 1X ONCE IV Last administered on 07/04/19at 03:25; Start 07/04/19 at 03:30; Stop 07/04/19 at 03:31; Status DC Info (CONTRAST GIVEN -- Rx MONITORING) 1 each PRN DAILY PRN MC SEE COMMENTS; Start 07/04/19 at 03:30; Stop 07/06/19 at 03:29; Status DC Hydromorphone HCl (Dilaudid) 0.5 mg 1X ONCE IV Last administered on 07/04/19at 03:55; Start 07/04/19 at 04:30; Stop 07/04/19 at 04:32; Status DC Ondansetron HCl (Zofran) 4 mg PRN Q8HRS PRN IV NAUSEA/VOMITING 1ST CHOICE; Start 07/04/19 at 05:00; Stop 07/04/19 at 09:27; Status DC Morphine Sulfate (Morphine Sulfate) 2 mg PRN Q2HR PRN IV SEVERE PAIN 7-10 Last administered on 07/05/19at 12:26; Start 07/04/19 at 05:00; Stop 07/05/19 at 14:15; Status DC Sodium Chloride 1,000 ml @ 125 mls/hr Q8H IV Last administered on 07/04/19at 20:56; Start 07/04/19 at 05:00; Stop 07/05/19 at 04:59; Status DC Hydromorphone HCl (Dilaudid) 0.5 mg PRN Q3HRS PRN IV SEVERE PAIN 7-10 Last administered on 07/05/19at 10:06; Start 07/04/19 at 05:00; Stop 07/05/19 at 12:01; Status DC Piperacillin Sod/ Tazobactam Sod 4.5 gm/Sodium Chloride 100 ml @ 200 mls/hr 1X ONCE IV Last administered on 07/04/19at 05:44; Start 07/04/19 at 06:00; Stop 07/04/19 at 06:29; Status DC Ondansetron HCl (Zofran) 4 mg PRN Q4HRS PRN IV NAUSEA/VOMITING 1ST CHOICE Last administered on 10/15/19at 13:37; Start 07/04/19 at 09:30 Insulin Human Lispro (HumaLOG) 0-9 UNITS Q6HRS SQ Last administered on 10/12/19at 18:05; Start 07/04/19 at 09:30 Dextrose (Dextrose 50%-Water Syringe) 12.5 gm PRN Q15MIN PRN IV SEE COMMENTS; Start 07/04/19 at 09:30 Pantoprazole Sodium (PROTONIX VIAL for IV PUSH) 40 mg DAILYAC IVP Last administered on 10/16/19at 08:23; Start 07/04/19 at 11:30 Prochlorperazine Edisylate (Compazine) 10 mg PRN Q6HRS PRN IV NAUSEA/VOMITING, 2nd CHOICE Last administered on 10/15/19at 10:53; Start 07/04/19 at 17:45 Atenolol (Tenormin) 100 mg DAILY PO ; Start 07/05/19 at 09:00; Stop 07/04/19 at 20:08; Status DC Metoprolol Tartrate (Lopressor Vial) 2.5 mg Q6HRS IVP Last administered on 07/05/19at 05:51; Start 07/04/19 at 20:15; Stop 07/05/19 at 10:02; Status DC Metoprolol Tartrate (Lopressor Vial) 5 mg Q6HRS IVP Last administered on 0at 00:12; Start 07/05/19 at 10:15; Stop 07/16/19 at 08:48; Status DC Hydromorphone HCl (Dilaudid) 1 mg PRN Q3HRS PRN IV SEVERE PAIN 7-10 Last administered on 07/11/19at 05:13; Start 07/05/19 at 12:00; Stop 07/19/19 at 00:25; Status DC Lidocaine HCl (Buffered Lidocaine 1%) 3 ml STK-MED ONCE .ROUTE ; Start 07/05/19 at 12:55; Stop 07/05/19 at 12:56; Status DC Albumin Human 500 ml @ 125 mls/hr 1X ONCE IV Last administered on 07/05/19at 14:33; Start 07/05/19 at 14:30; Stop 07/05/19 at 18:32; Status DC Norepinephrine Bitartrate 8 mg/ Dextrose 258 ml @ 17.299 mls/ hr CONT PRN IV PER PROTOCOL Last administered on 08/02/19at 12:48; Start 07/05/19 at 15:30; Stop 4/17/20 at 09:19; Status DC Sodium Chloride 1,000 ml @ 125 mls/hr Q8H IV Last administered on 07/05/19at 21:04; Start 07/05/19 at 16:00; Stop 07/06/19 at 02:42; Status DC Albumin Human 500 ml @ 125 mls/hr PRN BID PRN IV After every 2L NSS & BP < 90mm Last administered on 09/24/19at 11:40; Start 07/05/19 at 16:00 Iohexol (Omnipaque 300 Mg/ml) 60 ml 1X ONCE IV Last administered on 07/05/19at 17:20; Start 07/05/19 at 17:00; Stop 07/05/19 at 17:01; Status DC Info (CONTRAST GIVEN -- Rx MONITORING) 1 each PRN DAILY PRN MC SEE COMMENTS; Start 07/05/19 at 17:00; Stop 07/07/19 at 16:59; Status DC Meropenem 1 gm/ Sodium Chloride 100 ml @ 200 mls/hr Q8HRS IV Last administered on 07/06/19at 05:45; Start 07/05/19 at 20:00; Stop 07/06/19 at 08:48; Status DC Furosemide (Lasix) 40 mg 1X ONCE IVP Last administered on 07/05/19at 22:12; Start 07/05/19 at 22:30; Stop 07/05/19 at 22:31; Status DC Calcium Chloride 1000 mg/Sodium Chloride 110 ml @ 220 mls/hr 1X ONCE IV Last administered on 07/05/19at 22:11; Start 07/05/19 at 22:30; Stop 07/05/19 at 22:59; Status DC Albuterol Sulfate (Ventolin Neb Soln) 2.5 mg 1X ONCE NEB Last administered on 07/06/19at 00:56; Start 07/05/19 at 22:30; Stop 07/05/19 at 22:31; Status DC Insulin Human Regular (HumuLIN R VIAL) 5 unit 1X ONCE IV Last administered on 07/05/19at 22:14; Start 07/05/19 at 22:30; Stop 07/05/19 at 22:31; Status DC Magnesium Sulfate 50 ml @ 25 mls/hr 1X ONCE IV Last administered on 07/06/19at 02:57; Start 07/06/19 at 03:00; Stop 07/06/19 at 04:59; Status DC Calcium Gluconate 1000 mg/Sodium Chloride 110 ml @ 220 mls/hr 1X ONCE IV Last administered on 07/06/19at 02:46; Start 07/06/19 at 03:00; Stop 07/06/19 at 03:29; Status DC Sodium Chloride 1,000 ml @ 200 mls/hr Q5H IV Last administered on 07/06/19at 02:46; Start 07/06/19 at 03:00; Stop 07/06/19 at 10:21; Status DC Calcium Gluconate 1000 mg/Sodium Chloride 110 ml @ 220 mls/hr 1X ONCE IV Last administered on 07/06/19at 03:21; Start 07/06/19 at 03:30; Stop 07/06/19 at 03:59; Status DC Sodium Bicarbonate 50 meq/Sodium Chloride 1,050 ml @ 75 mls/hr Q14H IV Last administered on 07/10/19at 21:10; Start 07/06/19 at 07:30; Stop 07/11/19 at 10:28; Status DC Calcium Gluconate 2000 mg/Sodium Chloride 120 ml @ 220 mls/hr 1X ONCE IV Last administered on 07/06/19at 09:05; Start 07/06/19 at 07:30; Stop 07/06/19 at 08:02; Status DC Lidocaine HCl (Xylocaine-Mpf 1% 2ml Vial) 2 ml STK-MED ONCE .ROUTE ; Start 07/06/19 at 08:47; Stop 07/06/19 at 08:47; Status DC Meropenem 500 mg/ Sodium Chloride 50 ml @ 100 mls/hr Q12HR IV Last administered on 07/11/19at 21:01; Start 07/06/19 at 18:00; Stop 07/12/19 at 07:58; Status DC Lidocaine HCl (Buffered Lidocaine 1%) 3 ml STK-MED ONCE .ROUTE ; Start 07/06/19 at 09:46; Stop 07/06/19 at 09:46; Status DC Lidocaine HCl (Buffered Lidocaine 1%) 6 ml 1X ONCE INJ Last administered on 07/06/19at 10:26; Start 07/06/19 at 10:15; Stop 07/06/19 at 10:16; Status DC Info (Tpn Per Pharmacy) 1 each PRN DAILY PRN MC SEE COMMENTS Last administered on 10/16/19at 10:04; Start 07/06/19 at 12:00 Sodium Chloride 1,000 ml @ 1,000 mls/hr Q1H PRN IV hypotension; Start 07/06/19 at 12:07; Stop 07/06/19 at 18:06; Status DC Diphenhydramine HCl (Benadryl) 25 mg 1X PRN PRN IV ITCHING; Start 07/06/19 at 12:15; Stop 07/07/19 at 12:14; Status DC Diphenhydramine HCl (Benadryl) 25 mg 1X PRN PRN IV ITCHING; Start 07/06/19 at 12:15; Stop 07/07/19 at 12:14; Status DC Sodium Chloride 1,000 ml @ 400 mls/hr Q2H30M PRN IV PATENCY; Start 07/06/19 at 12:07; Stop 07/07/19 at 00:06; Status DC Info (PHARMACY MONITORING -- do not chart) 1 each PRN DAILY PRN MC SEE COMMENTS; Start 07/06/19 at 12:15; Stop 07/08/19 at 08:13; Status DC Sodium Chloride 90 meq/Calcium Gluconate 10 meq/ Multivitamins 10 ml/Chromium/ Copper/Manganese/ Seleni/Zn 1 ml/ Total Parenteral Nutrition/Amino Acids/Dextrose/ Fat Emulsion Intravenous 55.005 ml @ 2.292 mls/hr TPN CONT IV ; Start 07/06/19 at 22:00; Stop 07/06/19 at 12:33; Status DC Info (Tpn Per Pharmacy) 1 each PRN DAILY PRN MC SEE COMMENTS; Start 07/06/19 at 12:30; Status UNV Sodium Chloride 90 meq/Calcium Gluconate 10 meq/ Multivitamins 10 ml/Chromium/ Copper/Manganese/ Seleni/Zn 0.5 ml/ Total Parenteral Nutrition/Amino Acids/Dextrose/ Fat Emulsion Intravenous 1,512 ml @ 63 mls/hr TPN CONT IV Last administered on 07/06/19at 22:06; Start 07/06/19 at 22:00; Stop 07/07/19 at 21:59; Status DC Calcium Carbonate/ Glycine (Tums) 500 mg PRN AFTMEALHC PRN PO INDIGESTION; Start 07/06/19 at 17:45; Stop 08/31/19 at 10:25; Status DC Calcium Gluconate (Calcium Gluconate) 2,000 mg 1X ONCE IVP Last administered on 07/07/19at 02:19; Start 07/07/19 at 02:15; Stop 07/07/19 at 02:16; Status DC Calcium Chloride 3000 mg/Sodium Chloride 1,030 ml @ 50 mls/hr [id number] IV Last administered on 07/09/19at 02:17; Start 07/07/19 at 08:00; Stop 07/09/19 at 15:23; Status DC Lorazepam (Ativan Inj) 1 mg PRN Q4HRS PRN IVP ANXIETY / AGITATION, 2nd choic Last administered on 08/05/19at 03:51; Start 07/07/19 at 09:00; Stop 08/05/19 at 09:19; Status DC Sodium Chloride 1,000 ml @ 1,000 mls/hr Q1H PRN IV hypotension; Start 07/07/19 at 08:56; Stop 07/07/19 at 14:55; Status DC Albumin Human 200 ml @ 200 mls/hr 1X PRN PRN IV Hypotension; Start 07/07/19 at 09:00; Stop 07/07/19 at 14:59; Status DC Diphenhydramine HCl (Benadryl) 25 mg 1X PRN PRN IV ITCHING; Start 07/07/19 at 09:00; Stop 07/08/19 at 08:59; Status DC Diphenhydramine HCl (Benadryl) 25 mg 1X PRN PRN IV ITCHING; Start 07/07/19 at 09:00; Stop 07/08/19 at 08:59; Status DC Sodium Chloride 1,000 ml @ 400 mls/hr Q2H30M PRN IV PATENCY; Start 07/07/19 at 08:56; Stop 07/07/19 at 20:55; Status DC Info (PHARMACY MONITORING -- do not chart) 1 each PRN DAILY PRN MC SEE COMMENTS; Start 07/07/19 at 09:00; Status UNV Info (PHARMACY MONITORING -- do not chart) 1 each PRN DAILY PRN MC SEE CO MMENTS; Start 07/07/19 at 09:00; Stop 07/08/19 at 08:13; Status DC Digoxin (Lanoxin) 500 mcg 1X ONCE IV Last administered on 07/07/19at 10:04; Start 07/07/19 at 10:00; Stop 07/07/19 at 10:01; Status DC Digoxin (Lanoxin) 125 mcg 1X ONCE IV Last administered on 07/07/19at 17:10; Start 07/07/19 at 18:00; Stop 07/07/19 at 18:01; Status DC Magnesium Sulfate 100 ml @ 25 mls/hr 1X ONCE IV Last administered on 07/07/19at 12:48; Start 07/07/19 at 13:00; Stop 07/07/19 at 16:59; Status DC Sodium Chloride 90 meq/Magnesium Sulfate 10 meq/ Calcium Gluconate 20 meq/ Multivitamins 10 ml/Chromium/ Copper/Manganese/ Seleni/Zn 0.5 ml/ Total Pa renteral Nutrition/Amino Acids/Dextrose/ Fat Emulsion Intravenous 1,512 ml @ 63 mls/hr TPN CONT IV Last administered on 07/07/19at 22:25; Start 07/07/19 at 22:00; Stop 07/08/19 at 21:59; Status DC Sodium Chloride 1,000 ml @ 1,000 mls/hr Q1H PRN IV hypotension; Start 07/08/19 at 08:05; Stop 07/08/19 at 14:04; Status DC Albumin Human 200 ml @ 200 mls/hr 1X ONCE IV Last administered on 07/08/19at 08:57; Start 07/08/19 at 08:15; Stop 07/08/19 at 09:14; Status DC Diphenhydramine HCl (Benadryl) 25 mg 1X PRN PRN IV ITCHING; Start 07/08/19 at 08:15; Stop 07/09/19 at 08:14; Status DC Diphenhydramine HCl (Benadryl) 25 mg 1X PRN PRN IV ITCHING; Start 07/08/19 at 08:15; Stop 07/09/19 at 08:14; Status DC Sodium Chloride 1,000 ml @ 400 mls/hr Q2H30M PRN IV PATENCY; Start 07/08/19 at 08:05; Stop 07/08/19 at 20:04; Status DC Info (PHARMACY MONITORING -- do not chart) 1 each PRN DAILY PRN MC SEE COMMENTS; Start 07/08/19 at 08:15; Stop 07/12/19 at 07:57; Status DC Sodium Chloride 90 meq/Potassium Chloride 15 meq/ Potassium Phosphate 10 mmol/ Magnesium Sulfate 10 meq/Calcium Gluconate 20 meq/ Multivitamins 10 ml/Chromium/ Copper/Manganese/ Seleni/Zn 0.5 ml/ Total Parenteral Nutrition/Amino Acids/Dextrose/ Fat Emulsion Intravenous 1,512 ml @ 63 mls/hr TPN CONT IV Last administered on 07/08/19at 21:01; Start 07/08/19 at 22:00; Stop 07/09/19 at 21:59; Status DC Potassium Chloride/Water 100 ml @ 100 mls/hr 1X ONCE IV Last administered on 07/08/19at 14:09; Start 07/08/19 at 14:00; Stop 07/08/19 at 14:59; Status DC Benzocaine (Hurricaine One) 1 spray 1X ONCE MM Last administered on 07/08/19at 16:38; Start 07/08/19 at 14:30; Stop 07/08/19 at 14:31; Status DC Lidocaine HCl (Glydo (Lidocaine) Jelly) 1 ramu 1X ONCE MM Last administered on 07/08/19at 16:38; Start 07/08/19 at 14:30; Stop 07/08/19 at 14:31; Status DC Linezolid/Dextrose 300 ml @ 300 mls/hr Q12HR IV Last administered on 07/14/19at 21:04; Start 07/08/19 at 20:00; Stop 07/15/19 at 07:50; Status DC Acetaminophen (Tylenol) 650 mg PRN Q6HRS PRN PO MILD PAIN / TEMP; Start 07/09/19 at 03:30; Stop 07/09/19 at 03:36; Status DC Acetaminophen (Tylenol) 650 mg PRN Q6HRS PRN PEG MILD PAIN / TEMP Last administered on 08/04/19at 19:56; Start 07/09/19 at 03:36; Stop 08/31/19 at 10:25; Status DC Sodium Chloride 1,000 ml @ 1,000 mls/hr Q1H PRN IV hypotension; Start 07/09/19 at 07:50; Stop 07/09/19 at 13:49; Status DC Albumin Human 200 ml @ 200 mls/hr 1X PRN PRN IV Hypotension; Start 07/09/19 at 08:00; Stop 07/09/19 at 13:59; Status DC Sodium Chloride (Normal Saline Flush) 10 ml 1X PRN PRN IV AP catheter pack; Start 07/09/19 at 08:00; Stop 07/10/19 at 07:59; Status DC Sodium Chloride (Normal Saline Flush) 10 ml 1X PRN PRN IV [employer]PAR[employer] catheter pack; Start 07/09/19 at 08:00; Stop 07/10/19 at 07:59; Status DC Sodium Chloride 1,000 ml @ 400 mls/hr Q2H30M PRN IV PATENCY; Start 07/09/19 at 07:50; Stop 07/09/19 at 19:49; Status DC Info (PHARMACY MONITORING -- do not chart) 1 each PRN DAILY PRN MC SEE COMMENTS; Start 07/09/19 at 08:00; Status UNV Info (PHARMACY MONITORING -- do not chart) 1 each PRN DAILY PRN MC SEE COMMENTS; Start 07/09/19 at 08:00; Stop 07/11/19 at 08:25; Status DC Sodium Chloride 90 meq/Potassium Chloride 15 meq/ Potassium Phosphate 10 mmol/ Magnesium Sulfate 10 meq/Calcium Gluconate 20 meq/ Multivitamins 10 ml/Chromium/ Copper/Manganese/ Seleni/Zn 0.5 ml/ Total Parenteral Nutrition/Amino Acids/Dextrose/ Fat Emulsion Intravenous 1,512 ml @ 63 mls/hr TPN CONT IV Last administered on 07/09/19at 20:57; Start 07/09/19 at 22:00; Stop 07/10/19 at 21:59; Status DC Sodium Chloride 90 meq/Potassium Chloride 15 meq/ Potassium Phosphate 15 mmol/ Magnesium Sulfate 10 meq/Calcium Gluconate 20 meq/ Multivitamins 10 ml/Chromium/ Copper/Manganese/ Seleni/Zn 0.5 ml/ Total Parenteral Nutrition/Amino Acids/Dextrose/ Fat Emulsion Intravenous 1,512 ml @ 63 mls/hr TPN CONT IV ; Start 07/10/19 at 22:00; Stop 07/10/19 at 14:16; Status DC Sodium Chloride 90 meq/Potassium Chloride 15 meq/ Potassium Phosphate 15 mmol/ Magnesium Sulfate 10 meq/Calcium Gluconate 20 meq/ Multivitamins 10 ml/Chromium/ Copper/Manganese/ Seleni/Zn 0.5 ml/ Total Parenteral Nutrition/Amino Acids/Dextrose/ Fat Emulsion Intravenous 1,200 ml @ 50 mls/hr TPN CONT IV ; Start 07/10/19 at 22:00; Stop 07/10/19 at 14:17; Status DC Sodium Chloride 90 meq/Potassium Chloride 15 meq/ Potassium Phosphate 10 mmol/ Magnesium Sulfate 10 meq/Calcium Gluconate 20 meq/ Multivitamins 10 ml/Chromium/ Copper/Manganese/ Seleni/Zn 0.5 ml/ Total Parenteral Nutrition/Amino Acids/Dextrose/ Fat Emulsion Intravenous 1,200 ml @ 50 mls/hr TPN CONT IV Last administered on 07/10/19at 23:29; Start 07/10/19 at 22:00; Stop 07/11/19 at 21:59; Status DC Sodium Chloride 1,000 ml @ 1,000 mls/hr Q1H PRN IV hypotension; Start 07/11/19 at 07:28; Stop 07/11/19 at 13:27; Status DC Albumin Human 200 ml @ 200 mls/hr 1X ONCE IV Last administered on 07/11/19at 08:51; Start 07/11/19 at 07:30; Stop 07/11/19 at 08:29; Status DC Diphenhydramine HCl (Benadryl) 25 mg 1X PRN PRN IV ITCHING; Start 07/11/19 at 07:30; Stop 07/12/19 at 07:29; Status DC Diphenhydramine HCl (Benadryl) 25 mg 1X PRN PRN IV ITCHING; Start 07/11/19 at 07:30; Stop 07/12/19 at 07:29; Status DC Sodium Chloride 1,000 ml @ 400 mls/hr Q2H30M PRN IV PATENCY; Start 07/11/19 at 07:28; Stop 07/11/19 at 19:27; Status DC Info (PHARMACY MONITORING -- do not chart) 1 each PRN DAILY PRN MC SEE COMMENTS; Start 07/11/19 at 07:30; Stop 07/22/19 at 13:01; Status DC Metronidazole 100 ml @ 100 mls/hr Q6HRS IV Last administered on 07/27/19at 06:26; Start 07/11/19 at 08:30; Stop 07/27/19 at 09:58; Status DC Micafungin Sodium 100 mg/Dextrose 100 ml @ 100 mls/hr Q24H IV Last administered on 08/18/19at 08:18; Start 07/11/19 at 09:00; Stop 08/18/19 at 20:58; Status DC Propofol 0 ml @ As Directed STK-MED ONCE IV ; Start 07/11/19 at 07:53; Stop 06/19 07/07 at 07:53; Status DC Etomidate (Amidate) 20 mg STK-MED ONCE IV ; Start 07/11/19 at 07:53; Stop 07/11/19 at 07:54; Status DC Midazolam HCl (Versed) 5 mg STK-MED ONCE .ROUTE ; Start 07/11/19 at 07:57; Stop 07/11/19 at 07:57; Status DC Fentanyl Citrate 30 ml @ 0 mls/hr CONT PRN IV SEE PROTOCOL Last administered on 08/05/19at 06:12; Start 07/11/19 at 08:15; Stop 08/05/19 at 09:19; Status DC Artificial Tears (Artificial Tears) 1 drop PRN Q1HR PRN OU DRY EYE, 1st choice; Start 07/11/19 at 08:15; Stop 08/17/19 at 05:31; Status DC Midazolam HCl 50 mg/Sodium Chloride 50 ml @ 0 mls/hr CONT PRN IV SEE PROTOCOL Last administered on 07/14/19at 22:39; Start 07/11/19 at 08:15; Stop 07/16/19 at 15:59; Status DC Etomidate (Amidate) 8 mg 1X ONCE IV Last administered on 07/11/19at 08:33; Start 07/11/19 at 08:30; Stop 07/11/19 at 08:31; Status DC Succinylcholine Chloride (Anectine) 120 mg 1X ONCE IV Last administered on 07/11/19at 08:34; Start 07/11/19 at 08:30; Stop 07/11/19 at 08:31; Status DC Midazolam HCl (Versed) 5 mg 1X ONCE IV ; Start 07/11/19 at 08:30; Stop 07/11/19 at 08:31; Status DC Potassium Chloride 15 meq/ Bicarbonate Dialysis Soln w/ out KCl 5,007.5 ml @ 1,000 mls/ hr Q5H1M IV Last administered on 07/12/19at 11:11; Start 07/11/19 at 12:00; Stop 07/12/19 at 11:15; Status DC Potassium Chloride 15 meq/ Bicarbonate Dialysis Soln w/ out KCl 5,007.5 ml @ 1,000 mls/ hr Q5H1M IV Last administered on 07/12/19at 11:12; Start 07/11/19 at 12:00; Stop 07/12/19 at 11:17; Status DC Potassium Chloride 15 meq/ Bicarbonate Dialysis Soln w/ out KCl 5,007.5 ml @ 1,000 mls/ hr Q5H1M IV Last administered on 07/12/19at 11:11; Start 07/11/19 at 12:00; Stop 07/12/19 at 11:19; Status DC Sodium Chloride 90 meq/Potassium Chloride 15 meq/ Potassium Phosphate 10 mmol/ Magnesium Sulfate 10 meq/Calcium Gluconate 20 meq/ Multivitamins 10 ml/Chromium/ Copper/Manganese/ Seleni/Zn 0.5 ml/ Total Parenteral Nutrition/Amino Acids/Dextrose/ Fat Emulsion Intravenous 1,400 ml @ 58.333 mls/ hr TPN CONT IV Last administered on 07/11/19at 21:42; Start 07/11/19 at 22:00; Stop 07/12/19 at 21:59; Status DC Heparin Sodium (Porcine) (Heparin Sodium) 5,000 unit Q8HRS SQ Last administered on 07/16/19at 05:55; Start 07/11/19 at 15:00; Stop 07/16/19 at 13:28; Status DC Meropenem 500 mg/ Sodium Chloride 50 ml @ 100 mls/hr Q6HRS IV Last administered on 07/13/19at 06:00; Start 07/12/19 at 09:00; Stop 07/13/19 at 07:29; Status DC Potassium Phosphate 20 mmol/ Sodium Chloride 106.6667 ml @ 51.667 m... 1X ONCE IV Last administered on 07/12/19at 11:22; Start 07/12/19 at 10:15; Stop 07/12/19 at 12:18; Status DC Acetaminophen (Tylenol Supp) 650 mg PRN Q6HRS PRN [place] MILD PAIN / TEMP > 100.3'F Last administered on 10/16/19at 20:49; Start 07/12/19 at 10:30 Potassium Chloride/Water 100 ml @ 100 mls/hr Q1H IV Last administered on 07/12/19at 12:12; Start 07/12/19 at 11:00; Stop 07/12/19 at 12:59; Status DC Potassium Chloride 20 meq/ Bicarbonate Dialysis Soln w/ out KCl 5,010 ml @ 1,000 mls/hr Q5H1M IV Last administered on 07/13/19at 08:48; Start 07/12/19 at 12:00; Stop 07/13/19 at 13:03; Status DC Potassium Chloride 20 meq/ Bicarbonate Dialysis Soln w/ out KCl 5,010 ml @ 1,000 mls/hr Q5H1M IV Last administered on 07/17/19at 14:52; Start 07/12/19 at 11:30; Stop 07/17/19 at 19:59; Status DC Potassium Chloride 20 meq/ Bicarbonate Dialysis Soln w/ out KCl 5,010 ml @ 1,000 mls/hr Q5H1M IV Last administered on 07/17/19at 14:53; Start 07/12/19 at 11:30; Stop 07/17/19 at 19:59; Status DC Sodium Chloride 90 meq/Potassium Chloride 15 meq/ Potassium Phosphate 15 mmol/ Magnesium Sulfate 10 meq/Calcium Gluconate 15 meq/ Multivitamins 10 ml/Chromium/ Copper/Manganese/ Seleni/Zn 0.5 ml/ Total Parenteral Nutrition/Amino Acids/Dextrose/ Fat Emulsion Intravenous 1,400 ml @ 58.333 mls/ hr TPN CONT IV Last administered on 07/12/19at 22:17; Start 07/12/19 at 22:00; Stop 07/13/19 at 21:59; Status DC Cefepime HCl (Maxipime) 2 gm Q12HR IVP Last administered on 07/26/19at 20:56; Start 07/13/19 at 09:00; Stop 07/27/19 at 09:58; Status DC Daptomycin 500 mg/ Sodium Chloride 50 ml @ 100 mls/hr Q48H IV Last administered on 07/29/19at 09:57; Start 07/13/19 at 08:30; Stop 07/29/19 at 10:07; Status DC Lidocaine HCl (Buffered Lidocaine 1%) 3 ml 1X ONCE INJ Last administered on 07/13/19at 10:27; Start 07/13/19 at 10:30; Stop 07/13/19 at 10:31; Status DC Potassium Phosphate 20 mmol/ Sodium Chloride 106.6667 ml @ 51.667 m... 1X ONCE IV Last administered on 07/13/19at 12:51; Start 07/13/19 at 13:00; Stop 07/13/19 at 15:03; Status DC Sodium Chloride 90 meq/Potassium Chloride 15 meq/ Potassium Phosphate 18 mmol/ Magnesium Sulfate 8 meq/Calcium Gluconate 15 meq/ Multivitamins 10 ml/Chromium/ Copper/Manganese/ Seleni/Zn 0.5 ml/ Total Parenteral Nutrition/Amino Acids/Dextrose/ Fat Emulsion Intravenous 1,400 ml @ 58.333 mls/ hr TPN CONT IV Last administered on 07/13/19at 22:16; Start 07/13/19 at 22:00; Stop 07/14/19 at 21:59; Status DC Potassium Chloride 20 meq/ Bicarbonate Dialysis Soln w/ out KCl 5,010 ml @ 1,000 mls/hr Q5H1M IV Last administered on 07/17/19at 14:54; Start 07/13/19 at 16:00; Stop 07/17/19 at 19:59; Status DC Multi-Ingred Cream/Lotion/Oil/ Oint (Artificial Tears Eye Ointment) 1 ramu PRN Q1HR PRN OU DRY EYE, 2nd choice Last administered on 08/01/19at 08:19; Start 07/13/19 at 17:30; Stop 09/21/19 at 14:39; Status DC Sodium Chloride 90 meq/Potassium Chloride 15 meq/ Potassium Phosphate 18 mmol/ Magnesium Sulfate 8 meq/Calcium Gluconate 15 meq/ Multivitamins 10 ml/Chromium/ Copper/Manganese/ Seleni/Zn 0.5 ml/ Total Parenteral Nutrition/Amino Acids/Dextrose/ Fat Emulsion Intravenous 1,400 ml @ 58.333 mls/ hr TPN CONT IV Last administered on 07/14/19at 22:00; Start 07/14/19 at 22:00; Stop 07/15/19 at 21:59; Status DC Albumin Human 500 ml @ 125 mls/hr 1X ONCE IV ; Start 07/14/19 at 14:15; Stop 07/14/19 at 18:14; Status DC Sodium Chloride 90 meq/Potassium Chloride 15 meq/ Potassium Phosphate 18 mmol/ Magnesium Sulfate 8 meq/Calcium Gluconate 15 meq/ Multivitamins 10 ml/Chromium/ Copper/Manganese/ Seleni/Zn 0.5 ml/ Insulin Human Regular 10 unit/ Total Parenteral Nutrition/Amino Acids/Dextrose/ Fat Emulsion Intravenous 1,400 ml @ 58.333 mls/ hr TPN CONT IV Last administered on 07/15/19at 21:43; Start at 22:00; Stop 07/16/19 at 21:59; Status DC Lidocaine HCl (Buffered Lidocaine 1%) 3 ml A V.E.T.S.c.a.r.e.K-MED ONCE .ROUTE ; Start 07/13/19 at 10:00; Stop 07/15/19 at 13:57; Status DC Midazolam HCl 100 mg/Sodium Chloride 100 ml @ 7 mls/hr CONT PRN IV SEE PROTOCOL Last administered on 07/27/19at 15:35; Start 07/16/19 at 16:00; Stop 09/21/19 at 14:38; Status DC Sodium Chloride 90 meq/Potassium Chloride 15 meq/ Potassium Phosphate 18 mmol/ Magnesium Sulfate 8 meq/Calcium Gluconate 15 meq/ Multivitamins 10 ml/Chromium/ Copper/Manganese/ Seleni/Zn 0.5 ml/ Insulin Human Regular 15 unit/ Total Parenteral Nutrition/Amino Acids/Dextrose/ Fat Emulsion Intravenous 1,400 ml @ 58.333 mls/ hr TPN CONT IV Last administered on 07/16/19at 20:34; Start 07/16/19 at 22:00; Stop 07/17/19 at 21:59; Status DC Info (Icu Electrolyte Protocol) 1 ea CONT PRN PRN MC PER PROTOCOL; Start 07/17/19 at 13:15 Sodium Chloride 90 meq/Potassium Chloride 15 meq/ Potassium Phosphate 18 mmol/ Magnesium Sulfate 8 meq/Calcium Gluconate 15 meq/ Multivitamins 10 ml/Chromium/ Copper/Manganese/ Seleni/Zn 0.5 ml/ Insulin Human Regular 15 unit/ Total Parenteral Nutrition/Amino Acids/Dextrose/ Fat Emulsion Intravenous 1,400 ml @ 58.333 mls/ hr TPN CONT IV Last administered on 07/17/19at 22:05; Start 07/17/19 at 22:00; Stop 07/18/19 at 21:59; Status DC Potassium Chloride 15 meq/ Bicarbonate Dialysis Soln w/ out KCl 5,007.5 ml @ 1,000 mls/ hr Q5H1M IV Last administered on 07/20/19at 18:14; Start 07/17/19 at 20:00; Stop 07/21/19 at 13:08; Status DC Potassium Chloride 15 meq/ Bicarbonate Dialysis Soln w/ out KCl 5,007.5 ml @ 1,000 mls/ hr Q5H1M IV Last administered on 07/20/19at 18:14; Start 07/17/19 at 20:00; Stop 07/21/19 at 13:08; Status DC Potassium Chloride 15 meq/ Bicarbonate Dialysis Soln w/ out KCl 5,007.5 ml @ 1,000 mls/ hr Q5H1M IV Last administered on 07/20/19at 18:14; Start 07/17/19 at 20:00; Stop 07/21/19 at 13:08; Status DC Iohexol (Omnipaque 240 Mg/ml) 30 ml 1X ONCE PO Last administered on 07/18/19at 11:30; Start 07/18/19 at 11:30; Stop 07/18/19 at 11:33; Status DC Info (CONTRAST GIVEN -- Rx MONITORING) 1 each PRN DAILY PRN MC SEE COMMENTS; Start 07/18/19 at 11:45; Stop 07/20/19 at 11:44; Status DC Sodium Chloride 90 meq/Potassium Chloride 15 meq/ Potassium Phosphate 18 mmol/ Magnesium Sulfate 8 meq/Calcium Gluconate 15 meq/ Multivitamins 10 ml/Chromium/ Copper/Manganese/ Seleni/Zn 0.5 ml/ Insulin Human Regular 15 unit/ Total Parenteral Nutrition/Amino Acids/Dextrose/ Fat Emulsion Intravenous 1,400 ml @ 58.333 mls/ hr TPN CONT IV Last administered on 07/18/19at 21:47; Start 07/18/19 at 22:00; Stop 07/19/19 at 21:59; Status DC Sodium Chloride 90 meq/Potassium Chloride 15 meq/ Potassium Phosphate 18 mmol/ Magnesium Sulfate 8 meq/Calcium Gluconate 15 meq/ Multivitamins 10 ml/Chromium/ Copper/Manganese/ Seleni/Zn 0.5 ml/ Insulin Human Regular 20 unit/ Total Parenteral Nutrition/Amino Acids/Dextrose/ Fat Emulsion Intravenous 1,400 ml @ 58.333 mls/ hr TPN CONT IV Last administered on 07/19/19at 21:36; Start 07/19/19 at 22:00; Stop 07/20/19 at 21:59; Status DC Alteplase, Recombinant (Cathflo For Central Catheter Clearance) 1 mg 1X ONCE INT CAT Last administered on 07/19/19at 20:03; Start 07/19/19 at 19:30; Stop 07/19/19 at 19:46; Status DC Alteplase, Recombinant (Cathflo For Central Catheter Clearance) 1 mg 1X ONCE INT CAT Last administered on 07/19/19at 22:05; Start 07/19/19 at 22:00; Stop 07/19/19 at 22:01; Status DC Sodium Chloride 90 meq/Potassium Chloride 15 meq/ Potassium Phosphate 18 mmol/ Magnesium Sulfate 8 meq/Calcium Gluconate 15 meq/ Multivitamins 10 ml/Chromium/ Copper/Manganese/ Seleni/Zn 0.5 ml/ Insulin Human Regular 20 unit/ Total Parenteral Nutrition/Amino Acids/Dextrose/ Fat Emulsion Intravenous 1,400 ml @ 58.333 mls/ hr TPN CONT IV Last administered on 07/20/19at 21:30; Start 07/20/19 at 22:00; Stop 07/21/19 at 21:59; Status DC Dexmedetomidine HCl 400 mcg/ Sodium Chloride 100 ml @ 0 mls/hr CONT PRN IV ANXIETY / AGITATION Last administered on 09/17/19at 12:57; Start 07/21/19 at 08:15; Stop 09/17/19 at 18:31; Status DC Sodium Chloride 500 ml @ 500 mls/hr 1X PRN PRN IV ELEVATED BP, SEE COMMENTS; Start 07/21/19 at 08:15 Atropine Sulfate (ATROPINE 0.5mg SYRINGE) 0.5 mg PRN Q5MIN PRN IV SEE COMMENTS; Start 07/21/19 at 08:15 Furosemide (Lasix) 20 mg 1X ONCE IVP Last administered on 07/21/19at 08:19; Start 07/21/19 at 08:15; Stop 07/21/19 at 08:16; Status DC Lidocaine HCl (Buffered Lidocaine 1%) 3 ml STK-MED ONCE .ROUTE ; Start 07/21/19 at 08:39; Stop 07/21/19 at 08:39; Status DC Lidocaine HCl (Buffered Lidocaine 1%) 6 ml 1X ONCE INJ Last administered on 07/21/19at 09:05; Start 07/21/19 at 09:00; Stop 07/21/19 at 09:06; Status DC Sodium Chloride 90 meq/Potassium Chloride 15 meq/ Potassium Phosphate 18 mmol/ Magnesium Sulfate 8 meq/Calcium Gluconate 15 meq/ Multivitamins 10 ml/Chromium/ Copper/Manganese/ Seleni/Zn 0.5 ml/ Insulin Human Regular 20 unit/ Total Parenteral Nutrition/Amino Acids/Dextrose/ Fat Emulsion Intravenous 1,400 ml @ 58.333 mls/ hr TPN CONT IV Last administered on 07/21/19at 22:45; Start 07/21/19 at 22:00; Stop 07/22/19 at 21:59; Status DC Sodium Chloride 1,000 ml @ 1,000 mls/hr Q1H PRN IV hypotension; Start 07/22/19 at 07:30; Stop 07/22/19 at 13:29; Status DC Albumin Human 200 ml @ 200 mls/hr 1X PRN PRN IV Hypotension Last administered on 07/22/19at 09:36; Start 07/22/19 at 07:30; Stop 07/22/19 at 13:29; Status DC Sodium Chloride (Normal Saline Flush) 10 ml 1X PRN PRN IV AP catheter pack; Start 07/22/19 at 07:30; Stop 07/22/19 at 21:29; Status DC Sodium Chloride (Normal Saline Flush) 10 ml 1X PRN PRN IV PREPARATION SUPERVISOR CANNING catheter pack; Start 07/22/19 at 07:30; Stop 07/23/19 at 07:29; Status DC Sodium Chloride 1,000 ml @ 400 mls/hr Q2H30M PRN IV PATENCY; Start 07/22/19 at 07:30; Stop 07/22/19 at 19:29; Status DC Info (PHARMACY MONITORING -- do not chart) 1 each PRN DAILY PRN MC SEE COMMENTS; Start 07/22/19 at 07:30; Stop 07/22/19 at 13:02; Status DC Info (PHARMACY MONITORING -- do not chart) 1 each PRN DAILY PRN MC SEE PIPE LUA; Start 07/22/19 at 07:30; Stop 07/24/19 at 12:45; Status DC Sodium Chloride 90 meq/Potassium Chloride 15 meq/ Potassium Phosphate 10 mmol/ Magnesium Sulfate 8 meq/Calcium Gluconate 15 meq/ Multivitamins 10 ml/Chromium/ Copper/Manganese/ Seleni/Zn 0.5 ml/ Insulin Human Regular 25 unit/ Total Parenteral Nutrition/Amino Acids/Dextrose/ Fat Emulsion Intravenous 1,400 ml @ 58.333 mls/ hr TPN CONT IV Last administered on 07/22/19at 22:19; Start 07/22/19 at 22:00; Stop 07/23/19 at 21:59; Status DC Heparin Sodium (Porcine) (Heparin Sodium) 5,000 unit Q12HR SQ Last administered on 08/14/19at 08:59; Start 07/22/19 at 21:00; Stop 08/14/19 at 10:05; Status DC Ondansetron HCl (Zofran) 4 mg PRN Q6HRS PRN IV NAUSEA/VOMITING; Start 07/25/19 at 07:00; Stop 07/26/19 at 06:59; Status DC Fentanyl Citrate (Fentanyl 2ml Vial) 25 mcg PRN Q5MIN PRN IV MILD PAIN 1-3; Start 07/25/19 at 07:00; Stop 07/26/19 at 06:59; Status DC Fentanyl Citrate (Fentanyl 2ml Vial) 50 mcg PRN Q5MIN PRN IV MODERATE TO SEVERE PAIN; Start 07/25/19 at 07:00; Stop 07/26/19 at 06:59; Status DC Ringer's Solution 1,000 ml @ 30 mls/hr Q24H IV ; Start 07/25/19 at 07:00; Stop 07/25/19 at 18:59; Status DC Lidocaine HCl (Xylocaine-Mpf 1% 2ml Vial) 2 ml PRN 1X PRN ID PRIOR TO IV START; Start 07/25/19 at 07:00; Stop 07/26/19 at 06:59; Status DC Prochlorperazine Edisylate (Compazine) 5 mg PACU PRN PRN IV NAUSEA, MRX1; Start 07/25/19 at 07:00; Stop 07/26/19 at 06:59; Status DC Sodium Chloride 1,000 ml @ 1,000 mls/hr Q1H PRN IV hypotension; Start 07/23/19 at 09:10; Stop 07/23/19 at 15:09; Status DC Albumin Human 200 ml @ 200 mls/hr 1X PRN PRN IV Hypotension Last administered on 07/23/19at 10:10; Start 07/23/19 at 09:15; Stop 07/23/19 at 15:14; Status DC Sodium Chloride 1,000 ml @ 400 mls/hr Q2H30M PRN IV PATENCY; Start 07/23/19 at 09:10; Stop 07/23/19 at 21:09; Status DC Info (PHARMACY MONITORING -- do not chart) 1 each PRN DAILY PRN MC SEE COMMENT S; Start 07/23/19 at 09:15; Stop 07/24/19 at 12:45; Status DC Info (PHARMACY MONITORING -- do not chart) 1 each PRN DAILY PRN MC SEE COMMENTS; Start 07/23/19 at 09:15; Stop 07/24/19 at 12:45; Status DC Sodium Chloride 90 meq/Potassium Chloride 15 meq/ Potassium Phosphate 10 mmol/ Magnesium Sulfate 8 meq/Calcium Gluconate 15 meq/ Multivitamins 10 ml/Chromium/ Copper/Manganese/ Seleni/Zn 0.5 ml/ Insulin Human Regular 25 unit/ Total Parenteral Nutrition/Amino Acids/Dextrose/ Fat Emulsion Intravenous 1,400 ml @ 58.333 mls/ hr TPN CONT IV Last administered on 07/23/19at 22:10; Start 07/23/19 at 22:00; Stop 07/24/19 at 21:59; Status DC Magnesium Sulfate 50 ml @ 25 mls/hr PRN DAILY PRN IV for Mag < 1.7 on am labs Last administered on 10/06/19at 10:57; Start 07/24/19 at 09:15 Sodium Chloride 90 meq/Potassium Chloride 15 meq/ Potassium Phosphate 10 mmol/ Magnesium Sulfate 8 meq/Calcium Gluconate 15 meq/ Multivitamins 10 ml/Chromium/ Copper/Manganese/ Seleni/Zn 0.5 ml/ Insulin Human Regular 25 unit/ Total Parenteral Nutrition/Amino Acids/Dextrose/ Fat Emulsion Intravenous 1,400 ml @ 58.333 mls/ hr TPN CONT IV Last administered on 07/24/19at 21:20; Start 07/24/19 at 22:00; Stop 07/25/19 at 21:59; Status DC Sodium Chloride 1,000 ml @ 1,000 mls/hr Q1H PRN IV hypotension; Start 07/24/19 at 12:23; Stop 07/24/19 at 18:22; Status DC Albumin Human 200 ml @ 200 mls/hr 1X ONCE IV Last administered on 07/24/19at 13:34; Start 07/24/19 at 12:30; Stop 07/24/19 at 13:29; Status DC Diphenhydramine HCl (Benadryl) 25 mg 1X PRN PRN IV ITCHING; Start 07/24/19 at 12:30; Stop 07/25/19 at 12:29; Status DC Diphenhydramine HCl (Benadryl) 25 mg 1X PRN PRN IV ITCHING; Start 07/24/19 at 12:30; Stop 07/25/19 at 12:29; Status DC Info (PHARMACY MONITORING -- do not chart) 1 each PRN DAILY PRN MC SEE COM MENTS; Start 07/24/19 at 12:30; Status Cancel Bupivacaine HCl/ Epinephrine Bitart (Sensorcain-Epi 0.5%-1:[id number] Mpf) 30 ml STK-MED ONCE .ROUTE Last administered on 07/25/19at 11:44; Start 07/25/19 at 11:00; Stop 07/25/19 at 11:01; Status DC Cellulose (Surgicel Fibrillar 1x2) 1 each STK-MED ONCE .ROUTE ; Start 07/25/19 at 11:00; Stop 07/25/19 at 11:01; Status DC Sodium Chloride 90 meq/Potassium Chloride 15 meq/ Potassium Phosphate 10 mmol/ Magnesium Sulfate 12 meq/Calcium Gluconate 15 meq/ Multivitamins 10 ml/Chromium/ Copper/Manganese/ Seleni/Zn 0.5 ml/ Insulin Human Regular 25 unit/ Total Parenteral Nutrition/Amino Acids/Dextrose/ Fat Emulsion Intravenous 1,400 ml @ 58.333 mls/ hr TPN CONT IV Last administered on 07/25/19at 22:24; Start 07/25/19 at 22:00; Stop 07/26/19 at 21:59; Status DC Propofol 20 ml @ As Directed STK-MED ONCE IV ; Start 07/25/19 at 11:07; Stop 07/25/19 at 11:07; Status DC Cellulose (Surgicel Hemostat 4x8) 1 each STK-MED ONCE .ROUTE Last administered on 07/25/19at 11:44; Start 07/25/19 at 11:55; Stop 07/25/19 at 11:56; Status DC Sevoflurane (Ultane) 60 ml STK-MED ONCE IH ; Start 07/25/19 at 12:46; Stop 07/25/19 at 12:46; Status DC Sodium Chloride 1,000 ml @ 1,000 mls/hr Q1H PRN IV hypotension; Start 07/25/19 at 13:51; Stop 07/25/19 at 19:50; Status DC Albumin Human 200 ml @ 200 mls/hr 1X PRN PRN IV Hypotension Last administered on 07/25/19at 14:51; Start 07/25/19 at 14:00; Stop 07/25/19 at 19:59; Status DC Diphenhydramine HCl (Benadryl) 25 mg 1X PRN PRN IV ITCHING; Start 07/25/19 at 14:00; Stop 07/26/19 at 13:59; Status DC Diphenhydramine HCl (Benadryl) 25 mg 1X PRN PRN IV ITCHING; Start 07/25/19 at 14:00; Stop 07/26/19 at 13:59; Status DC Sodium Chloride 1,000 ml @ 400 mls/hr Q2H30M PRN IV PATENCY; Start 07/25/19 at 13:51; Stop 07/26/19 at 01:50; Status DC Info (PHARMACY MONITORING -- do not chart) 1 each PRN DAILY PRN MC SEE COMMENTS; Start 07/25/19 at 14:00; Stop 07/28/19 at 08:16; Status DC Heparin Sodium (Porcine) (Hep Lock Adult) 500 unit STK-MED ONCE IVP ; Start 07/26/19 at 09:29; Stop 07/26/19 at 09:30; Status DC Sodium Chloride 1,000 ml @ 1,000 mls/hr Q1H PRN IV hypotension; Start 07/26/19 at 10:43; Stop 07/26/19 at 16:42; Status DC Sodium Chloride 1,000 ml @ 400 mls/hr Q2H30M PRN IV PATENCY; Start 07/26/19 at 10:43; Stop 07/26/19 at 22:42; Status DC Info (PHARMACY MONITORING -- do not chart) 1 each PRN DAILY PRN MC SEE COMMENTS; Start 07/26/19 at 10:45; Status UNV Info (PHARMACY MONITORING -- do not chart) 1 each PRN DAILY PRN MC SEE COMMENTS; Start 07/26/19 at 10:45; Status UNV Sodium Chloride 90 meq/Potassium Chloride 15 meq/ Magnesium Sulfate 12 meq/Calcium Gluconate 15 meq/ Multivitamins 10 ml/Chromium/ Copper/Manganese/ Seleni/Zn 0.5 ml/ Insulin Human Regular 25 unit/ Total Parenteral Nutrition/Amino Acids/Dextrose/ Fat Emulsion Intravenous 1,400 ml @ 58.333 mls/ hr TPN CONT IV Last administered on 07/26/19at 22:13; Start 07/26/19 at 22:00; Stop 07/27/19 at 21:59; Status DC Sodium Chloride 1,000 ml @ 1,000 mls/hr Q1H PRN IV hypotension; Start 07/27/19 at 07:50; Stop 07/27/19 at 13:49; Status DC Albumin Human 200 ml @ 200 mls/hr 1X ONCE IV ; Start 07/27/19 at 08:00; Stop 07/27/19 at 08:53; Status DC Diphenhydramine HCl (Benadryl) 25 mg 1X PRN PRN IV ITCHING; Start 07/27/19 at 08:00; Stop 07/28/19 at 07:59; Status DC Diphenhydramine HCl (Benadryl) 25 mg 1X PRN PRN IV ITCHING; Start 07/27/19 at 08:00; Stop 07/28/19 at 07:59; Status DC Info (PHARMACY MONITORING -- do not chart) 1 each PRN DAILY PRN MC SEE COMMENTS; Start 07/27/19 at 08:00; Stop 07/28/19 at 08:16; Status DC Albumin Human 50 ml @ 50 mls/hr 1X ONCE IV ; Start 07/27/19 at 08:53; Stop 07/27/19 at 08:56; Status DC Albumin Human 200 ml @ 50 mls/hr PRN 1X PRN IV HYPOTENSION Last administered on 08/02/19at 11:54; Start 07/27/19 at 09:00; Stop 09/08/19 at 11:14; Status DC Meropenem 500 mg/ Sodium Chloride 50 ml @ 100 mls/hr Q12H IV Last administered on 08/16/19at 10:45; Start 07/27/19 at 10:00; Stop 08/16/19 at 12:37; Status DC Sodium Chloride 90 meq/Magnesium Sulfate 12 meq/ Calcium Gluconate 15 meq/ Multivitamins 10 ml/Chromium/ Copper/Manganese/ Seleni/Zn 0.5 ml/ Insulin Human Regular 25 unit/ Total Parenteral Nutrition/Amino Acids/Dextrose/ Fat Emulsion Intravenous 1,400 ml @ 58.333 mls/ hr TPN CONT IV Last administered on 07/27/19at 21:41; Start 07/27/19 at 22:00; Stop 07/28/19 at 21:59; Status DC Sodium Chloride 1,000 ml @ 1,000 mls/hr Q1H PRN IV hypotension; Start 07/28/19 at 07:58; Stop 07/28/19 at 13:57; Status DC Albumin Human 200 ml @ 200 mls/hr 1X PRN PRN IV Hypotension Last administered on 07/28/19at 09:30; Start 07/28/19 at 08:00; Stop 07/28/19 at 13:59; Status DC Sodium Chloride 1,000 ml @ 400 mls/hr Q2H30M PRN IV PATENCY; Start 07/28/19 at 07:58; Stop 07/28/19 at 19:57; Status DC Info (PHARMACY MONITORING -- do not chart) 1 each PRN DAILY PRN MC SEE COMMENTS; Start 07/28/19 at 08:00; Status Cancel Info (PHARMACY MONITORING -- do not chart) 1 each PRN DAILY PRN MC SEE COMMENTS; Start 07/28/19 at 08:15; Status UNV Sodium Chloride 90 meq/Potassium Phosphate 5 mmol/ Magnesium Sulfate 12 meq/Calcium Gluconate 15 meq/ Multivitamins 10 ml/Chromium/ Copper/Manganese/ Seleni/Zn 0.5 ml/ Insulin Human Regular 30 unit/ Total Parenteral Nutrition/Amino Acids/Dextrose/ Fat Emulsion Intravenous 1,400 ml @ 58.333 mls/ hr TPN CONT IV Last administered on 07/28/19at 22:08; Start 07/28/19 at 22:00; Stop 07/29/19 at 21:59; Status DC Linezolid/Dextrose 300 ml @ 300 mls/hr Q12HR IV Last administered on 08/08/19at 20:40; Start 07/29/19 at 11:00; Stop 08/09/19 at 08:10; Status DC Sodium Chloride 90 meq/Potassium Phosphate 15 mmol/ Magnesium Sulfate 12 meq/Calcium Gluconate 15 meq/ Multivitamins 10 ml/Chromium/ Copper/Manganese/ Seleni/Zn 0.5 ml/ Insulin Human Regular 30 unit/ Total Parenteral Nutrition/Amino Acids/Dextrose/ Fat Emulsion Intravenous 1,400 ml @ 58.333 mls/ hr TPN CONT IV Last administered on 07/29/19at 21:49; Start 07/29/19 at 22:00; Stop 07/30/19 at 21:59; Status DC Sodium Chloride 90 meq/Potassium Phosphate 15 mmol/ Magnesium Sulfate 12 meq/Calcium Gluconate 15 meq/ Multivitamins 10 ml/Chromium/ Copper/Manganese/ Seleni/Zn 0.5 ml/ Insulin Human Regular 40 unit/ Total Parenteral Nutrition/Amino Acids/Dextrose/ Fat Emulsion Intravenous 1,400 ml @ 58.333 mls/ hr TPN CONT IV Last administered on 07/30/19at 21:21; Start 07/30/19 at 22:00; Stop 07/31/19 at 21:59; Status DC Sodium Chloride 1,000 ml @ 1,000 mls/hr Q1H PRN IV hypotension; Start 07/30/19 at 13:26; Stop 07/30/19 at 19:25; Status DC Albumin Human 200 ml @ 200 mls/hr 1X PRN PRN IV Hypotension Last administered on 07/30/19at 15:00; Start 07/30/19 at 13:30; Stop 07/30/19 at 19:29; Status DC Sodium Chloride (Normal Saline Flush) 10 ml 1X PRN PRN IV AP catheter pack; Start 07/30/19 at 13:30; Stop 07/31/19 at 13:29; Status DC Sodium Chloride (Normal Saline Flush) 10 ml 1X PRN PRN IV PREPARATION SUPERVISOR CANNING catheter pack; Start 07/30/19 at 13:30; Stop 07/31/19 at 13:29; Status DC Sodium Chloride 1,000 ml @ 400 mls/hr Q2H30M PRN IV PATENCY; Start 07/30/19 at 13:26; Stop 07/31/19 at 01:25; Status DC Info (PHARMACY MONITORING -- do not chart) 1 each PRN DAILY PRN MC SEE COMMENTS; Start 07/30/19 at 13:30; Stop 07/30/19 at 13:33; Status DC Info (PHARMACY MONITORING -- do not chart) 1 each PRN DAILY PRN MC SEE COMMENTS; Start 07/30/19 at 13:30; Stop 07/30/19 at 13:34; Status DC Sodium Chloride 90 meq/Potassium Phosphate 19 mmol/ Magnesium Sulfate 12 meq/Calcium Gluconate 15 meq/ Multivitamins 10 ml/Chromium/ Copper/Manganese/ Seleni/Zn 0.5 ml/ Insulin Human Regular 40 unit/ Total Parenteral Nutrition/Amino Acids/Dextrose/ Fat Emulsion Intravenous 1,400 ml @ 58.333 mls/ hr TPN CONT IV Last administered on 07/31/19at 21:54; Start 07/31/19 at 22:00; Stop 08/01/19 at 21:59; Status DC Sodium Chloride 1,000 ml @ 1,000 mls/hr Q1H PRN IV hypotension; Start 08/01/19 at 09:35; Stop 08/01/19 at 15:34; Status DC Albumin Human 200 ml @ 200 mls/hr 1X PRN PRN IV Hypotension; Start 08/01/19 at 09:45; Stop 08/01/19 at 15:44; Status DC Diphenhydramine HCl (Benadryl) 25 mg 1X PRN PRN IV ITCHING; Start 08/01/19 at 09:45; Stop 08/02/19 at 09:44; Status DC Diphenhydramine HCl (Benadryl) 25 mg 1X PRN PRN IV ITCHING; Start 08/01/19 at 09:45; Stop 08/02/19 at 09:44; Status DC Sodium Chloride 1,000 ml @ 400 mls/hr Q2H30M PRN IV PATENCY; Start 08/01/19 at 09:35; Stop 08/01/19 at 21:34; Status DC Info (PHARMACY MONITORING -- do not chart) 1 each PRN DAILY PRN MC SEE COMMENTS; Start 08/01/19 at 09:45; Status Cancel Sodium Chloride 100 meq/Potassium Phosphate 19 mmol/ Magnesium Sulfate 12 meq/Calcium Gluconate 15 meq/ Multivitamins 10 ml/Chromium/ Copper/Manganese/ Seleni/Zn 0.5 ml/ Insulin Human Regular 40 unit/ Potassium Chloride 20 meq/ Total Parenteral Nutrition/Amino Acids/Dextrose/ Fat Emulsion Intravenous 1,400 ml @ 58.333 mls/ hr TPN CONT IV Last administered on 08/01/19at 22:02; Start 08/01/19 at 22:00; Stop 08/02/19 at 21:59; Status DC Furosemide (Lasix) 40 mg 1X ONCE IVP Last administered on 08/01/19at 14:39; Start 08/01/19 at 14:30; Stop 08/01/19 at 14:31; Status DC Metronidazole 100 ml @ 100 mls/hr Q8HRS IV Last administered on 08/09/19at 06:04; Start 08/02/19 at 10:00; Stop 08/09/19 at 08:10; Status DC Sodium Chloride 1,000 ml @ 1,000 mls/hr Q1H PRN IV hypotension; Start 08/02/19 at 08:00; Stop 08/02/19 at 13:59; Status DC Albumin Human 200 ml @ 200 mls/hr 1X PRN PRN IV Hypotension; Start 08/02/19 at 08:00; Stop 08/02/19 at 13:59; Status DC Sodium Chloride 1,000 ml @ 400 mls/hr Q2H30M PRN IV PATENCY; Start 08/02/19 at 08:00; Stop 08/02/19 at 19:59; Status DC Info (PHARMACY MONITORING -- do not chart) 1 each PRN DAILY PRN MC SEE COMMENTS; Start 08/02/19 at 11:30; Status UNV Info (PHARMACY MONITORING -- do not chart) 1 each PRN DAILY PRN MC SEE COMMENTS; Start 08/02/19 at 11:30; Stop 08/04/19 at 12:13; Status DC Sodium Chloride 100 meq/Potassium Phosphate 19 mmol/ Magnesium Sulfate 12 meq/Calcium Gluconate 15 meq/ Multivitamins 10 ml/Chromium/ Copper/Manganese/ Seleni/Zn 0.5 ml/ Insulin Human Regular 40 unit/ Potassium Chloride 20 meq/ Total Parenteral Nutrition/Amino Acids/Dextrose/ Fat Emulsion Intravenous 1,400 ml @ 58.333 mls/ hr TPN CONT IV Last administered on 08/02/19at 21:52; Start 08/02/19 at 22:00; Stop 08/03/19 at 21:59; Status DC Sodium Chloride (Normal Saline Flush) 10 ml QSHIFT PRN IV AFTER MEDS AND BLOOD DRAWS; Start 08/02/19 at 15:00; Stop 08/30/19 at 11:27; Status DC Sodium Chloride (Normal Saline Flush) 10 ml PRN Q5MIN PRN IV AFTER MEDS AND BLOOD DRAWS; Start 08/02/19 at 15:00 Sodium Chloride (Normal Saline Flush) 20 ml PRN Q5MIN PRN IV AFTER MEDS AND BLOOD DRAWS; Start 08/02/19 at 15:00 Sodium Chloride 100 meq/Potassium Phosphate 19 mmol/ Magnesium Sulfate 12 meq/Calcium Gluconate 15 meq/ Multivitamins 10 ml/Chromium/ Copper/Manganese/ Seleni/Zn 0.5 ml/ Insulin Human Regular 40 unit/ Potassium Chloride 20 meq/ Total Parenteral Nutrition/Amino Acids/Dextrose/ Fat Emulsion Intravenous 1,400 ml @ 58.333 mls/ hr TPN CONT IV Last administered on 08/03/19at 21:20; Start 08/03/19 at 22:00; Stop 08/04/19 at 21:59; Status DC Lidocaine HCl (Buffered Lidocaine 1%) 3 ml STK-MED ONCE .ROUTE ; Start 08/03/19 at 13:16; Stop 08/03/19 at 13:16; Status DC Lidocaine HCl (Buffered Lidocaine 1%) 6 ml 1X ONCE INJ Last administered on 08/03/19at 13:45; Start 08/03/19 at 13:30; Stop 08/03/19 at 13:31; Status DC Albumin Human 100 ml @ 100 mls/hr 1X ONCE IV Last administered on 08/03/19at 15:41; Start 08/03/19 at 15:00; Stop 08/03/19 at 15:59; Status DC Albumin Human 50 ml @ 50 mls/hr 1X ONCE IV Last administered on 08/03/19at 15:00; Start 08/03/19 at 15:00; Stop 08/03/19 at 15:59; Status DC Info (PHARMACY MONITORING -- do not chart) 1 each PRN DAILY PRN MC SEE COMMENTS; Start 08/04/19 at 11:30; Status Cancel Info (PHARMACY MONITORING -- do not chart) 1 each PRN DAILY PRN MC SEE COMMENTS; Start 08/04/19 at 11:30; Status UNV Sodium Chloride 100 meq/Potassium Phosphate 10 mmol/ Magnesium Sulfate 12 meq/Calcium Gluconate 15 meq/ Multivitamins 10 ml/Chromium/ Copper/Manganese/ Seleni/Zn 0.5 ml/ Insulin Human Regular 35 unit/ Potassium Chloride 20 meq/ Total Parenteral Nutrition/Amino Acids/Dextrose/ Fat Emulsion Intravenous 1,400 ml @ 58.333 mls/ hr TPN CONT IV Last administered on 08/04/19at 22:10; Start 08/04/19 at 22:00; Stop 08/05/19 at 21:59; Status DC Sodium Chloride 100 meq/Potassium Phosphate 5 mmol/ Magnesium Sulfate 12 meq/Calcium Gluconate 15 meq/ Multivitamins 10 ml/Chromium/ Copper/Manganese/ Seleni/Zn 0.5 ml/ Insulin Human Regular 35 unit/ Potassium Chloride 20 meq/ Total Parenteral Nutrition/Amino Acids/Dextrose/ Fat Emulsion Intravenous 1,400 ml @ 58.333 mls/ hr TPN CONT IV Last administered on 08/05/19at 22:59; Start 08/05/19 at 22:00; Stop 08/06/19 at 21:59; Status DC Sodium Chloride 1,000 ml @ 1,000 mls/hr Q1H PRN IV hypotension; Start 08/06/19 at 08:27; Stop 08/06/19 at 14:26; Status DC Albumin Human 200 ml @ 200 mls/hr 1X PRN PRN IV Hypotension Last administered on 08/06/19at 09:18; Start 08/06/19 at 08:30; Stop 08/06/19 at 14:29; Status DC Sodium Chloride 1,000 ml @ 400 mls/hr Q2H30M PRN IV PATENCY; Start 08/06/19 at 08:27; Stop 08/06/19 at 20:26; Status DC Info (PHARMACY MONITORING -- do not chart) 1 each PRN DAILY PRN MC SEE COMMENTS; Start 08/06/19 at 08:30; Status Cancel Info (PHARMACY MONITORING -- do not chart) 1 each PRN DAILY PRN MC SEE COMMENTS; Start 08/06/19 at 08:30; Stop 08/14/19 at 13:10; Status DC Sodium Chloride 100 meq/Potassium Chloride 40 meq/ Magnesium Sulfate 15 meq/Calcium Gluconate 15 meq/ Multivitamins 10 ml/Chromium/ Copper/Manganese/ Seleni/Zn 0.5 ml/ Insulin Human Regular 35 unit/ Total Parenteral Nutrit ion/Amino Acids/Dextrose/ Fat Emulsion Intravenous 1,400 ml @ 58.333 mls/ hr TPN CONT IV Last administered on 08/06/19at 22:00; Start 08/06/19 at 22:00; Stop 08/07/19 at 21:59; Status DC Potassium Chloride/Water 100 ml @ 100 mls/hr 1X ONCE IV Last administered on 08/06/19at 17:28; Start 08/06/19 at 14:45; Stop 08/06/19 at 15:44; Status DC Sodium Chloride 100 meq/Potassium Chloride 40 meq/ Magnesium Sulfate 15 meq/Calcium Gluconate 15 meq/ Multivitamins 10 ml/Chromium/ Copper/Manganese/ Seleni/Zn 0.5 ml/ Insulin Human Regular 35 unit/ Total Parenteral Nutrition/Amino Acids/Dextrose/ Fat Emulsion Intravenous 1,400 ml @ 58.333 mls/ hr TPN CONT IV Last administered on 08/07/19at 22:46; Start 08/07/19 at 22:00; Stop 08/08/19 at 21:59; Status DC Sodium Chloride 100 meq/Potassium Chloride 40 meq/ Magnesium Sulfate 20 meq/Calcium Gluconate 15 meq/ Multivitamins 10 ml/Chromium/ Copper/Manganese/ Seleni/Zn 0.5 ml/ Insulin Human Regular 35 unit/ Total Parenteral Nutrition/Amino Acids/Dextrose/ Fat Emulsion Intravenous 1,400 ml @ 58.333 mls/ hr TPN CONT IV Last administered on 08/08/19at 22:31; Start 08/08/19 at 22:00; Stop 08/09/19 at 21:59; Status DC Fentanyl Citrate (Fentanyl 2ml Vial) 50 mcg PRN Q2HR PRN IVP PAIN Last administered on 08/15/19at 13:32; Start 08/08/19 at 21:00; Stop 08/16/19 at 12:53; Status DC Fentanyl Citrate (Fentanyl 2ml Vial) 25 mcg PRN Q2HR PRN IVP PAIN; Start 08/08/19 at 21:00; Stop 08/16/19 at 12:54; Status DC Enoxaparin Sodium (Lovenox 100mg Syringe) 100 mg Q12HR SQ ; Start 08/09/19 at 21:00; Status UNV Amino Acids/ Glycerin/ Electrolytes 1,000 ml @ 75 mls/hr [id number] IV ; Start 08/08/19 at 21:15; Status UNV Sodium Chloride 1,000 ml @ 1,000 mls/hr Q1H PRN IV hypotension; Start 08/09/19 at 07:56; Stop 08/09/19 at 13:55; Status DC Albumin Human 200 ml @ 200 mls/hr 1X PRN PRN IV Hypotension Last administered on 08/09/19at 08:40; Start 08/09/19 at 08:00; Stop 08/09/19 at 13:59; Status DC Sodium Chloride 1,000 ml @ 400 mls/hr Q2H30M PRN IV PATENCY; Start 08/09/19 at 07:56; Stop 08/09/19 at 19:55; Status DC Info (PHARMACY MONITORING -- do not chart) 1 each PRN DAILY PRN MC SEE COMMENTS; Start 08/09/19 at 08:00; Status UNV Info (PHARMACY MONITORING -- do not chart) 1 each PRN DAILY PRN MC SEE COMMENTS; Start 08/09/19 at 08:00; Status UNV Daptomycin 430 mg/ Sodium Chloride 50 ml @ 100 mls/hr Q24H IV Last administered on 08/09/19at 12:35; Start 08/09/19 at 09:00; Stop 08/09/19 at 12:49; Status DC Sodium Chloride 100 meq/Potassium Chloride 40 meq/ Magnesium Sulfate 20 meq/Calcium Gluconate 15 meq/ Multivitamins 10 ml/Chromium/ Copper/Manganese/ Seleni/Zn 0.5 ml/ Insulin Human Regular 35 unit/ Total Parenteral Nutrition/Amino Acids/Dextrose/ Fat Emulsion Intravenous 1,400 ml @ 58.333 mls/ hr TPN CONT IV Last administered on 08/09/19at 21:26; Start 08/09/19 at 22:00; Stop 08/10/19 at 21:59; Status DC Daptomycin 430 mg/ Sodium Chloride 50 ml @ 100 mls/hr Q48H IV ; Start 08/11/19 at 09:00; Stop 08/10/19 at 11:55; Status DC Sodium Chloride 100 meq/Potassium Chloride 40 meq/ Magnesium Sulfate 20 meq/Calcium Gluconate 15 meq/ Multivitamins 10 ml/Chromium/ Copper/Manganese/ Seleni/Zn 0.5 ml/ Insulin Human Regular 35 unit/ Total Parenteral Nutrition/Amino Acids/Dextrose/ Fat Emulsion Intravenous 1,400 ml @ 58.333 mls/ hr TPN CONT IV Last administered on 08/10/19at 22:27; Start 08/10/19 at 22:00; Stop 08/11/19 at 21:59; Status DC Daptomycin 430 mg/ Sodium Chloride 50 ml @ 100 mls/hr Q24H IV Last administered on 08/12/19at 15:07; Start 08/10/19 at 13:00; Stop 08/13/19 at 13:15; Status DC Sodium Chloride 100 meq/Potassium Chloride 40 meq/ Magnesium Sulfate 20 meq/Calcium Gluconate 10 meq/ Multivitamins 10 ml/Chromium/ Copper/Manganese/ Seleni/Zn 0.5 ml/ Insulin Human Regular 35 unit/ Total Parenteral Nutrition/Amino Acids/Dextrose/ Fat Emulsion Intravenous 1,400 ml @ 58.333 mls/ hr TPN CONT IV Last administered on 08/12/19at 00:06; Start 08/11/19 at 22:00; Stop 08/12/19 at 21:59; Status DC Alteplase, Recombinant (Cathflo For Central Catheter Clearance) 1 mg 1X ONCE INT CAT Last administered on 08/12/19at 11:44; Start 08/12/19 at 10:45; Stop 08/12/19 at 10:46; Status DC Ondansetron HCl (Zofran) 4 mg PRN Q6HRS PRN IV NAUSEA/VOMITING; Start 08/15/19 at 07:00; Stop 08/16/19 at 06:59; Status DC Fentanyl Citrate (Fentanyl 2ml Vial) 25 mcg PRN Q5MIN PRN IV MILD PAIN 1-3; Start 08/15/19 at 07:00; Stop 08/16/19 at 06:59; Status DC Fentanyl Citrate (Fentanyl 2ml Vial) 50 mcg PRN Q5MIN PRN IV MODERATE TO SEVERE PAIN Last administered on 08/15/19at 10:17; Start 08/15/19 at 07:00; Stop 08/16/19 at 06:59; Status DC Ringer's Solution 1,000 ml @ 30 mls/hr Q24H IV ; Start 08/15/19 at 07:00; Stop 08/15/19 at 18:59; Status DC Lidocaine HCl (Xylocaine-Mpf 1% 2ml Vial) 2 ml PRN 1X PRN ID PRIOR TO IV START; Start 08/15/19 at 07:00; Stop 08/16/19 at 06:59; Status DC Prochlorperazine Edisylate (Compazine) 5 mg PACU PRN PRN IV NAUSEA, MRX1; Start 08/15/19 at 07:00; Stop 08/16/19 at 06:59; Status DC Sodium Acetate 50 meq/Potassium Acetate 55 meq/ Magnesium Sulfate 20 meq/Calcium Gluconate 10 meq/ Multivitamins 10 ml/Chromium/ Copper/Manganese/ Seleni/Zn 0.5 ml/ Insulin Human Regular 35 unit/ Total Parenteral Nutrition/Amino Aci ds/Dextrose/ Fat Emulsion Intravenous 1,400 ml @ 58.333 mls/ hr TPN CONT IV ; Start 08/12/19 at 22:00; Stop 08/12/19 at 14:15; Status DC Sodium Acetate 50 meq/Potassium Acetate 55 meq/ Magnesium Sulfate 20 meq/Calcium Gluconate 10 meq/ Multivitamins 10 ml/Chromium/ Copper/Manganese/ Seleni/Zn 0.5 ml/ Insulin Human Regular 35 unit/ Total Parenteral Nutrition/Amino Acids/Dextrose/ Fat Emulsion Intravenous 1,800 ml @ 75 mls/hr TPN CONT IV Last administered on 08/12/19at 22:38; Start 08/12/19 at 22:00; Stop 08/13/19 at 21:59; Status DC Sodium Chloride 1,000 ml @ 1,000 mls/hr Q1H PRN IV hypotension; Start 08/12/19 at 15:31; Stop 08/12/19 at 21:30; Status DC Diphenhydramine HCl (Benadryl) 25 mg 1X PRN PRN IV ITCHING; Start 08/12/19 at 15:45; Stop 08/13/19 at 15:44; Status DC Diphenhydramine HCl (Benadryl) 25 mg 1X PRN PRN IV ITCHING; Start 08/12/19 at 15:45; Stop 08/13/19 at 15:44; Status DC Sodium Chloride 1,000 ml @ 400 mls/hr Q2H30M PRN IV PATENCY; Start 08/12/19 at 15:31; Stop 08/13/19 at 03:30; Status DC Info (PHARMACY MONITORING -- do not chart) 1 each PRN DAILY PRN MC SEE COMMENTS; Start 08/12/19 at 15:45; Stop 09/13/19 at 14:14; Status DC Sodium Acetate 50 meq/Potassium Acetate 55 meq/ Magnesium Sulfate 20 meq/Calcium Gluconate 10 meq/ Multivitamins 10 ml/Chromium/ Copper/Manganese/ Seleni/Zn 0.5 ml/ Insulin Human Regular 35 unit/ Total Parenteral Nutrition/Amino Acid s/Dextrose/ Fat Emulsion Intravenous 1,800 ml @ 75 mls/hr TPN CONT IV Last administered on 08/13/19at 22:03; Start 08/13/19 at 22:00; Stop 08/14/19 at 21:59; Status DC Daptomycin 430 mg/ Sodium Chloride 50 ml @ 100 mls/hr Q24H IV Last administered on 08/18/19at 13:00; Start 08/13/19 at 13:00; Stop 08/18/19 at 20:58; Status DC Heparin Sodium (Porcine) 1000 unit/Sodium Chloride 1,001 ml @ 1,001 mls/hr 1X ONCE IRR ; Start 08/15/19 at 06:00; Stop 08/15/19 at 06:59; Status DC Potassium Acetate 55 meq/Magnesium Sulfate 20 meq/ Calcium Gluconate 10 meq/ Multivitamins 10 ml/Chromium/ Copper/Manganese/ Seleni/Zn 0.5 ml/ Insulin Human Regular 35 unit/ Total Parenteral Nutrition/Amino Acids/Dextrose/ Fat Emulsion Intravenous 1,920 ml @ 80 mls/hr TPN CONT IV Last administered on 08/14/19at 22:10; Start 08/14/19 at 22:00; Stop 08/15/19 at 21:59; Status DC Dexamethasone Sodium Phosphate (Decadron) 4 mg STK-MED ONCE .ROUTE ; Start 08/15/19 at 10:56; Stop 08/15/19 at 10:57; Status DC Ondansetron HCl (Zofran) 4 mg STK-MED ONCE .ROUTE ; Start 08/15/19 at 10:56; Stop 08/15/19 at 10:57; Status DC Rocuronium [place] (Zemuron) 50 mg STK-MED ONCE .ROUTE ; Start 08/15/19 at 10:56; Stop 08/15/19 at 10:57; Status DC Fentanyl Citrate (Fentanyl 2ml Vial) 100 mcg STK-MED ONCE .ROUTE ; Start 08/15/19 at 10:56; Stop 08/15/19 at 10:57; Status DC Bupivacaine HCl/ Epinephrine Bitart (Sensorcain-Epi 0.5%-1:521170 Mpf) 30 ml STK-MED ONCE .ROUTE Last administered on 08/15/19at 12:01; Start 08/15/19 at 10:58; Stop 08/15/19 at 10:58; Status DC Cellulose (Surgicel Hemostat 2x14) 1 each STK-MED ONCE .ROUTE ; Start 08/15/19 at 10:58; Stop 08/15/19 at 10:59; Status DC Iohexol (Omnipaque 300 Mg/ml) 50 ml STK-MED ONCE .ROUTE ; Start 08/15/19 at 10:58; Stop 08/15/19 at 10:59; Status DC Cellulose (Surgicel Hemostat 4x8) 1 each STK-MED ONCE .ROUTE ; Start 08/15/19 at 10:58; Stop 08/15/19 at 10:59; Status DC Bisacodyl (Dulcolax Supp) 10 mg STK-MED ONCE .ROUTE ; Start 08/15/19 at 10:59; Stop 08/15/19 at 10:59; Status DC Heparin Sodium (Porcine) 1000 unit/Sodium Chloride 1,001 ml @ 1,001 mls/hr 1X ONCE IRR ; Start 08/15/19 at 12:00; Stop 08/15/19 at 12:59; Status DC Propofol 20 ml @ As Directed STK-MED ONCE IV ; Start 08/15/19 at 11:05; Stop 08/15/19 at 11:05; Status DC Sevoflurane (Ultane) 90 ml STK-MED ONCE IH ; Start 08/15/19 at 11:05; Stop 08/15/19 at 11:05; Status DC Sevoflurane (Ultane) 60 ml STK-MED ONCE IH ; Start 08/15/19 at 12:26; Stop 08/15/19 at 12:27; Status DC Propofol 20 ml @ As Directed STK-MED ONCE IV ; Start 08/15/19 at 12:26; Stop 08/15/19 at 12:27; Status DC Phenylephrine HCl (PHENYLEPHRINE in 0.9% NACL PF) 1 mg STK-MED ONCE IV ; Start 08/15/19 at 12:34; Stop 08/15/19 at 12:34; Status DC Heparin Sodium (Porcine) (Heparin Sodium) 5,000 unit Q12HR SQ Last administered on 08/24/19at 20:57; Start 08/15/19 at 21:00; Stop 08/25/19 at 09:59; Status DC Sodium Chloride (Normal Saline Flush) 3 ml QSHIFT PRN IV AFTER MEDS AND BLOOD DRAWS; Start 08/15/19 at 13:45 Naloxone HCl (Narcan) 0.4 mg PRN Q2MIN PRN IV SEE INSTRUCTIONS Last administered on 09/24/19at 15:15; Start 08/15/19 at 13:45 Sodium Chloride 1,000 ml @ 25 mls/hr Q24H IV Last administered on 09/13/19at 13:37; Start 08/15/19 at 13:37; Stop 09/16/19 at 13:09; Status DC Naloxone HCl (Narcan) 0.4 mg PRN Q2MIN PRN IV SEE INSTRUCTIONS; Start 08/15/19 at 14:30; Status UNV Sodium Chloride 1,000 ml @ 25 mls/hr Q24H IV ; Start 08/15/19 at 14:30; Status UNV Hydromorphone HCl 30 ml @ 0 mls/hr CONT PRN PRN IV PER PROTOCOL Last administered on 08/20/19at 16:08; Start 08/15/19 at 14:30; Stop 08/22/19 at 08:55; Status DC Potassium Acetate 55 meq/Magnesium Sulfate 20 meq/ Calcium Gluconate 10 meq/ Multivitamins 10 ml/Chromium/ Copper/Manganese/ Seleni/Zn 0.5 ml/ Insulin Human Regular 35 unit/ Total Parenteral Nutrition/Amino Acids/Dextrose/ Fat Emulsion Intravenous 1,920 ml @ 80 mls/hr TPN CONT IV Last administered on 08/15/19at 22:01; Start 08/15/19 at 22:00; Stop 08/16/19 at 21:59; Status DC Bumetanide (Bumex) 2 mg [id number] IV Last administered on 08/19/19at 13:50; Start 08/16/19 at 14:00; Stop 08/20/19 at 14:10; Status DC Meropenem 1 gm/ Sodium Chloride 100 ml @ 200 mls/hr Q8HRS IV Last administered on 09/09/19at 05:53; Start 08/16/19 at 14:00; Stop 09/09/19 at 09:31; Status DC Potassium Acetate 55 meq/Magnesium Sulfate 20 meq/ Calcium Gluconate 10 meq/ Multivitamins 10 ml/Chromium/ Copper/Manganese/ Seleni/Zn 0.5 ml/ Insulin Human Regular 35 unit/ Total Parenteral Nutrition/Amino Acids/Dextrose/ Fat Emulsion Intravenous 1,920 ml @ 80 mls/hr TPN CONT IV Last administered on 08/16/19at 22:02; Start 08/16/19 at 22:00; Stop 08/17/19 at 21:59; Status DC Hydromorphone HCl (Dilaudid Standard SOLAR/RENEWABLE ENERGY SALES) 12 mg STK-MED ONCE IV ; Start 08/15/19 at 14:35; Stop 08/16/19 at 13:53; Status DC Artificial Tears (Artificial Tears) 1 drop PRN Q15MIN PRN OU DRY EYE Last administered on 10/11/19at 21:17; Start 08/17/19 at 05:30 Hydromorphone HCl (Dilaudid Standard SOLAR/RENEWABLE ENERGY SALES) 12 mg STK-MED ONCE IV ; Start 08/16/19 at 12:05; Stop 08/17/19 at 09:15; Status DC Potassium Acetate 65 meq/Magnesium Sulfate 20 meq/ Calcium Gluconate 10 meq/ Multivitamins 10 ml/Chromium/ Copper/Manganese/ Seleni/Zn 0.5 ml/ Insulin Human Regular 30 unit/ Total Parenteral Nutrition/Amino Acids/Dextrose/ Fat Emulsion Intravenous 1,920 ml @ 80 mls/hr TPN CONT IV Last administered on 08/17/19at 2 2:22; Start 08/17/19 at 22:00; Stop 08/18/19 at 21:59; Status DC Cyclobenzaprine HCl (Flexeril) 10 mg PRN Q6HRS PRN PO MUSCLE SPASMS; Start 08/18/19 at 10:45 Potassium Acetate 55 meq/Magnesium Sulfate 20 meq/ Calcium Gluconate 10 meq/ Multivitamins 10 ml/Chromium/ Copper/Manganese/ Seleni/Zn 0.5 ml/ Insulin Human Regular 30 unit/ Total Parenteral Nutrition/Amino Acids/Dextrose/ Fat Emulsion Intravenous 1,920 ml @ 80 mls/hr TPN CONT IV Last administered on 08/19/19at 01:00; Start 08/18/19 at 22:00; Stop 08/19/19 at 21:59; Status DC Magnesium Sulfate 50 ml @ 25 mls/hr 1X ONCE IV Last administered on 08/18/19at 17:18; Start 08/18/19 at 12:45; Stop 08/18/19 at 14:44; Status DC Potassium Chloride/Water 100 ml @ 100 mls/hr 1X ONCE IV Last administered on 08/19/19at 11:27; Start 08/19/19 at 12:00; Stop 08/19/19 at 12:59; Status DC Hydromorphone HCl (Dilaudid Standard SOLAR/RENEWABLE ENERGY SALES) 12 mg STK-MED ONCE IV ; Start 08/17/19 at 10:50; Stop 08/19/19 at 11:02; Status DC Hydromorphone HCl (Dilaudid Standard SOLAR/RENEWABLE ENERGY SALES) 12 mg STK-MED ONCE IV ; Start 08/18/19 at 13:47; Stop 08/19/19 at 11:03; Status DC Potassium Acetate 30 meq/Magnesium Sulfate 20 meq/ Calcium Gluconate 10 meq/ Multivitamins 10 ml/Chromium/ Copper/Manganese/ Seleni/Zn 0.5 ml/ Insulin Human Regular 30 unit/ Potassium Chloride 30 meq/ Total Parenteral Nutrition/Amino Acids/Dextrose/ Fat Emulsion Intravenous 1,920 ml @ 80 mls/hr TPN CONT IV Last administered on 08/19/19at 22:34; Start 08/19/19 at 22:00; Stop 08/20/19 at 21:59; Status DC Potassium Chloride/Water 100 ml @ 100 mls/hr Q1H IV Last administered on 08/20/19at 13:05; Start 08/20/19 at 07:00; Stop 08/20/19 at 10:59; Status DC Magnesium Sulfate 50 ml @ 25 mls/hr 1X ONCE IV Last administered on 08/20/19at 10:34; Start 08/20/19 at 10:30; Stop 08/20/19 at 12:29; Status DC Potassium Chloride 75 meq/ Magnesium Sulfate 20 meq/Calcium Gluconate 10 meq/ Multivitamins 10 ml/Chromium/ Copper/Manganese/ Seleni/Zn 0.5 ml/ Insulin Human Regular 30 unit/ Total Parenteral Nutrition/Amino Acids/Dextrose/ Fat Emulsion Intravenous 1,920 ml @ 80 mls/hr TPN CONT IV Last administered on 08/20/19at 21:51; Start 08/20/19 at 22:00; Stop 08/21/19 at 22:00; Status DC Potassium Chloride 75 meq/ Magnesium Sulfate 20 meq/Calcium Gluconate 10 meq/ Multivitamins 10 ml/Chromium/ Copper/Manganese/ Seleni/Zn 0.5 ml/ Insulin Human Regular 25 unit/ Total Parenteral Nutrition/Amino Acids/Dextrose/ Fat Emulsion Intravenous 1,920 ml @ 80 mls/hr TPN CONT IV Last administered on 08/21/19at 22:04; Start 08/21/19 at 22:00; Stop 08/22/19 at 21:59; Status DC Hydromorphone HCl (Dilaudid) 0.4 mg PRN Q4HRS PRN IVP PAIN Last administered on 08/22/19at 10:57; Start 08/22/19 at 09:00; Stop 08/22/19 at 18:59; Status DC Micafungin Sodium 100 mg/Dextrose 100 ml @ 100 mls/hr Q24H IV Last administered on 09/13/19at 12:17; Start 08/22/19 at 11:00; Stop 09/14/19 at 09:59; Status DC Daptomycin 485 mg/ Sodium Chloride 50 ml @ 100 mls/hr Q24H IV Last administe red on 08/29/19at 13:10; Start 08/22/19 at 11:00; Stop 08/30/19 at 07:44; Status DC Potassium Chloride 75 meq/ Magnesium Sulfate 15 meq/Calcium Gluconate 8 meq/ Multivitamins 10 ml/Chromium/ Copper/Manganese/ Seleni/Zn 0.5 ml/ Insulin Human Regular 25 unit/ Total Parenteral Nutrition/Amino Acids/Dextrose/ Fat Emulsion Intravenous 1,920 ml @ 80 mls/hr TPN CONT IV Last administered on 08/22/19at 23:08; Start 08/22/19 at 22:00; Stop 08/23/19 at 21:59; Status DC Haloperidol Lactate (Haldol Inj) 3 mg 1X ONCE IVP Last administered on 08/22/19at 14:37; Start 08/22/19 at 14:30; Stop 08/22/19 at 14:31; Status DC Hydromorphone HCl (Dilaudid) 1 mg PRN Q4HRS PRN IVP PAIN Last administered on 09/05/19at 06:25; Start 08/22/19 at 19:00; Stop 09/05/19 at 17:10; Status DC Potassium Chloride 75 meq/ Magnesium Sulfate 15 meq/Calcium Gluconate 8 meq/ Multivitamins 10 ml/Chromium/ Copper/Manganese/ Seleni/Zn 0.5 ml/ Insulin Human Regular 20 unit/ Total Parenteral Nutrition/Amino Acids/Dextrose/ Fat Emulsion Intravenous 1,920 ml @ 80 mls/hr TPN CONT IV Last administered on 08/23/19at 22:10; Start 08/23/19 at 22:00; Stop 08/24/19 at 21:59; Status DC Lidocaine HCl (Buffered Lidocaine 1%) 3 ml STK-MED ONCE .ROUTE ; Start 08/24/19 at 11:31; Stop 08/24/19 at 11:31; Status DC Lidocaine HCl (Buffered Lidocaine 1%) 3 ml STK-MED ONCE .ROUTE ; Start 08/24/19 at 12:28; Stop 08/24/19 at 12:29; Status DC Lidocaine HCl (Buffered Lidocaine 1%) 6 ml 1X ONCE INJ Last administered on 08/24/19at 12:53; Start 08/24/19 at 12:45; Stop 08/24/19 at 12:46; Status DC Potassium Chloride 75 meq/ Magnesium Sulfate 15 meq/Calcium Gluconate 8 meq/ Multivitamins 10 ml/Chromium/ Copper/Manganese/ Seleni/Zn 0.5 ml/ Insulin Human Regular 20 unit/ Total Parenteral Nutrition/Amino Acids/Dextrose/ Fat Emulsion Intravenous 1,920 ml @ 80 mls/hr TPN CONT IV Last administered on 08/24/19at 22:00; Start 08/24/19 at 22:00; Stop 08/25/19 at 21:59; Status DC Potassium Chloride 75 meq/ Magnesium Sulfate 15 meq/Calcium Gluconate 8 meq/ Multivitamins 10 ml/Chromium/ Copper/Manganese/ Seleni/Zn 0.5 ml/ Insulin Human Regular 15 unit/ Total Parenteral Nutrition/Amino Acids/Dextrose/ Fat Emulsion Intravenous 1,920 ml @ 80 mls/hr TPN CONT IV Last administered on 08/25/19at 22:28; Start 08/25/19 at 22:00; Stop 08/26/19 at 21:59; Status DC Vecuronium [place]am[place] (Norcuron Bolus) 6 mg PRN Q6HRS PRN IV VENT ASYNCHRONY; Start 08/25/19 at 19:15; Stop 08/25/19 at 19:35; Status DC Bumetanide (Bumex) 2 mg 1X ONCE IV Last administered on 08/25/19at 22:09; Start 08/25/19 at 19:45; Stop 08/25/19 at 19:46; Status DC Lidocaine HCl (Buffered Lidocaine 1%) 3 ml STK-MED ONCE .ROUTE ; Start 08/26/19 at 07:59; Stop 08/26/19 at 07:59; Status DC Midazolam HCl (Versed) 5 mg STK-MED ONCE .ROUTE ; Start 08/26/19 at 08:36; Stop 08/26/19 at 08:36; Status DC Fentanyl Citrate (Fentanyl 5ml Vial) 250 mcg STK-MED ONCE .ROUTE ; Start 08/26/19 at 08:36; Stop 08/26/19 at 08:37; Status DC Lidocaine HCl (Buffered Lidocaine 1%) 3 ml 1X ONCE IJ Last administered on 08/26/19at 09:30; Start 08/26/19 at 09:15; Stop 08/26/19 at 09:16; Status DC Midazolam HCl (Versed) 5 mg 1X ONCE IV Last administered on 08/26/19at 09:30; Start 08/26/19 at 09:15; Stop 08/26/19 at 09:16; Status DC Fentanyl Citrate (Fentanyl 5ml Vial) 250 mcg 1X ONCE IV Last administered on 08/26/19at 09:30; Start 08/26/19 at 09:15; Stop 08/26/19 at 09:16; Status DC Bumetanide (Bumex) 2 mg DAILY IV Last administered on 09/05/19at 08:07; Start 08/26/19 at 10:00; Stop 09/05/19 at 17:15; Status DC Potassium Chloride 75 meq/ Magnesium Sulfate 15 meq/ Multivitamins 10 ml/Chromium/ Copper/Manganese/ Seleni/Zn 0.5 ml/ Insulin Human Regular 15 unit/ Total Parenteral Nutrition/Amino Acids/Dextrose/ Fat Emulsion Intravenous 1,920 ml @ 80 mls/hr TPN CONT IV Last administered on 08/26/19at 21:59; Start 08/26/19 at 22:00; Stop 08/27/19 at 21:59; Status DC Metoclopramide HCl (Reglan Vial) 10 mg PRN Q3HRS PRN IVP NAUSEA/VOMITING-3rd choice Last administered on 09/01/19at 04:25; Start 08/27/19 at 16:45 Potassium Chloride 75 meq/ Magnesium Sulfate 15 meq/ Multivitamins 10 ml/Chromium/ Copper/Manganese/ Seleni/Zn 0.5 ml/ Insulin Human Regular 15 unit/ Total Parenteral Nutrition/Amino Acids/Dextrose/ Fat Emulsion Intravenous 1,920 ml @ 80 mls/hr TPN CONT IV Last administered on 08/27/19at 22:41; Start 08/27/19 at 22:00; Stop 08/28/19 at 21:59; Status DC Magnesium Sulfate 50 ml @ 25 mls/hr 1X ONCE IV Last administered on 08/28/19at 10:44; Start 08/28/19 at 09:00; Stop 08/28/19 at 10:59; Status DC Potassium Chloride/Water 100 ml @ 100 mls/hr 1X ONCE IV Last administered on 08/28/19at 09:37; Start 08/28/19 at 09:00; Stop 08/28/19 at 09:59; Status DC Duloxetine HCl (Cymbalta) 30 mg DAILY PO Last administered on 08/29/19at 09:48; Start 08/28/19 at 14:00; Stop 08/31/19 at 10:25; Status DC Potassium Chloride 80 meq/ Magnesium Sulfate 20 meq/ Multivitamins 10 m l/Chromium/ Copper/Manganese/ Seleni/Zn 0.5 ml/ Insulin Human Regular 15 unit/ Total Parenteral Nutrition/Amino Acids/Dextrose/ Fat Emulsion Intravenous 1,920 ml @ 80 mls/hr TPN CONT IV Last administered on 08/28/19at 21:42; Start 08/28/19 at 22:00; Stop 08/29/19 at 21:59; Status DC Potassium Chloride 80 meq/ Magnesium Sulfate 20 meq/ Multivitamins 10 ml/Chromium/ Copper/Manganese/ Seleni/Zn 0.5 ml/ Insulin Human Regular 15 unit/ Total Parenteral Nutrition/Amino Acids/Dextrose/ Fat Emulsion Intravenous 1,920 ml @ 80 mls/hr TPN CONT IV Last administered on 08/29/19at 22:20; Start 08/29/19 at 22:00; Stop 08/30/19 at 21:59; Status DC Lidocaine HCl (Buffered Lidocaine 1%) 3 ml STK-MED ONCE .ROUTE ; Start 08/30/19 at 09:54; Stop 08/30/19 at 09:55; Status DC Hydromorphone HCl (Dilaudid Standard [employer]) 12 mg STK-MED ONCE IV ; Start 08/19/19 at 15:50; Stop 08/30/19 at 11:24; Status DC Potassium Chloride 80 meq/ Magnesium Sulfate 20 meq/ Multivitamins 10 ml/Chromium/ Copper/Manganese/ Seleni/Zn 0.5 ml/ Insulin Human Regular 15 unit/ Total Parenteral Nutrition/Amino Acids/Dextrose/ Fat Emulsion Intravenous 1,920 ml @ 80 mls/hr TPN CONT IV Last administered on 08/30/19at 21:40; Start 08/30/19 at 22:00; Stop 08/31/19 at 21:59; Status DC Lidocaine HCl (Buffered Lidocaine 1%) 6 ml 1X ONCE INJ Last administered on 08/30/19at 14:15; Start 08/30/19 at 14:15; Stop 08/30/19 at 14:16; Status DC Potassium Chloride 80 meq/ Magnesium Sulfate 20 meq/ Multivitamins 10 ml/Chromium/ Copper/Manganese/ Seleni/Zn 1 ml/ Insulin Human Regular 15 unit/ Total Parenteral Nutrition/Amino Acids/Dextrose/ Fat Emulsion Intravenous 1,920 ml @ 80 mls/hr TPN CONT IV Last administered on 08/31/19at 22:04; Start 08/31/19 at 22:00; Stop 09/01/19 at 21:59; Status DC Potassium Chloride/Water 100 ml @ 100 mls/hr 1X ONCE IV Last administered on 09/01/19at 11:34; Start 09/01/19 at 11:00; Stop 09/01/19 at 11:59; Status DC Potassium Chloride 90 meq/ Magnesium Sulfate 20 meq/ Multivitamins 10 ml/Chromium/ Copper/Manganese/ Seleni/Zn 1 ml/ Insulin Human Regular 15 unit/ Total Parenteral Nutrition/Amino Acids/Dextrose/ Fat Emulsion Intravenous 1,920 ml @ 80 mls/hr TPN CONT IV Last administered on 09/01/19at 22:57; Start 09/01/19 at 22:00; Stop 09/02/19 at 21:59; Status DC Potassium Chloride 90 meq/ Magnesium Sulfate 20 meq/ Multivitamins 10 ml/Chromium/ Copper/Manganese/ Seleni/Zn 1 ml/ Insulin Human Regular 15 unit/ Total Parenteral Nutrition/Amino Acids/Dextrose/ Fat Emulsion Intravenous 1,920 ml @ 80 mls/hr TPN CONT IV Last administered on 09/02/19at 22:48; Start 09/02/19 at 22:00; Stop 09/03/19 at 21:59; Status DC Potassium Chloride 90 meq/ Magnesium Sulfate 20 meq/ Multivitamins 10 ml/Chromium/ Copper/Manganese/ Seleni/Zn 1 ml/ Insulin Human Regular 15 unit/ Total Parenteral Nutrition/Amino Acids/Dextrose/ Fat Emulsion Intravenous 1,890 ml @ 78.75 mls/ hr TPN CONT IV Last administered on 09/03/19at 22:15; Start 09/03/19 at 22:00; Stop 09/04/19 at 21:59; Status DC Linezolid/Dextrose 300 ml @ 300 mls/hr Q12HR IV Last administered on 09/06/19at 21:08; Start 09/04/19 at 09:00; Stop 09/07/19 at 08:11; Status DC Daptomycin 450 mg/ Sodium Chloride 50 ml @ 100 mls/hr Q24H IV Last administered on 09/07/19at 09:25; Start 09/04/19 at 09:00; Stop 09/08/19 at 08:30; Status DC Potassium Chloride 90 meq/ Magnesium Sulfate 20 meq/ Multivitamins 10 ml/Chromium/ Copper/Manganese/ Seleni/Zn 1 ml/ Insulin Human Regular 15 unit/ Total Parenteral Nutrition/Amino Acids/Dextrose/ Fat Emulsion Intravenous 1,890 ml @ 78.75 mls/ hr TPN CONT IV Last administered on 09/04/19at 21:34; Start 09/04/19 at 22:00; Stop 09/05/19 at 21:59; Status DC Lorazepam (Ativan Inj) 2 mg STK-MED ONCE .ROUTE ; Start 09/04/19 at 14:58; Stop 09/04/19 at 14:58; Status DC Metoprolol Tartrate (Lopressor Vial) 5 mg 1X ONCE IVP Last administered on 09/04/19at 15:31; Start 09/04/19 at 15:15; Stop 09/04/19 at 15:16; Status DC Lorazepam (Ativan Inj) 2 mg 1X ONCE IVP Last administered on 09/04/19at 15:30; Start 09/04/19 at 15:15; Stop 09/04/19 at 15:16; Status DC Enoxaparin Sodium (Lovenox 40mg Syringe) 40 mg Q24H SQ Last administered on 09/23/19at 17:44; Start 09/04/19 at 17:00; Stop 09/25/19 at 06:50; Status DC Lorazepam (Ativan Inj) 1 mg PRN Q4HRS PRN IVP ANXIETY / AGITATION MILD-MOD Last administered on 09/18/19at 15:55; Start 09/04/19 at 19:15; Stop 09/20/19 at 11:45; Status DC Lorazepam (Ativan Inj) 2 mg PRN Q4HRS PRN IVP ANXIETY / AGITATION SEVERE Last administered on 09/19/19at 07:55; Start 09/04/19 at 19:15; Stop 09/20/19 at 11:45; Status DC Fentanyl Citrate (Fentanyl 2ml Vial) 50 mcg PRN Q4HRS PRN IVP SEVERE PAIN Last administered on 10/01/19at 05:15; Start 09/05/19 at 13:15; Stop 10/02/19 at 09:29; Status DC Fentanyl Citrate (Fentanyl 2ml Vial) 25 mcg PRN Q4HRS PRN IVP MODERATE PAIN Last administered on 10/01/19at 00:27; Start 09/05/19 at 13:15; Stop 10/02/19 at 09:30; Status DC Potassium Chloride 90 meq/ Magnesium Sulfate 20 meq/ Multivitamins 10 ml/Chromium/ Copper/Manganese/ Seleni/Zn 1 ml/ Insulin Human Regular 15 unit/ Total Parenteral Nutrition/Amino Acids/Dextrose/ Fat Emulsion Intravenous 1,890 ml @ 78.75 mls/ hr TPN CONT IV Last administered on 09/05/19at 22:18; Start 09/05/19 at 22:00; Stop 09/06/19 at 21:59; Status DC Furosemide (Lasix) 40 mg 1X ONCE IVP Last administered on 09/05/19at 21:51; Start 09/05/19 at 21:45; Stop 09/05/19 at 21:48; Status DC Albumin Human 100 ml @ 100 mls/hr 1X PRN PRN IV SEE COMMENTS; Start 09/06/19 at 01:30 Furosemide (Lasix) 40 mg [id number] IVP Last administered on 09/21/19at 08:04; Start 09/06/19 at 14:00; Stop 09/21/19 at 13:07; Status DC Potassium Chloride 90 meq/ Magnesium Sulfate 20 meq/ Multivitamins 10 ml/Chromium/ Copper/Manganese/ Seleni/Zn 1 ml/ Insulin Human Regular 15 unit/ Total Parenteral Nutrition/Amino Acids/Dextrose/ Fat Emulsion Intravenous 1,800 ml @ 75 mls/hr TPN CONT IV Last administered on 09/06/19at 22:31; Start 09/06/19 at 22:00; Stop 09/07/19 at 21:59; Status DC Potassium Chloride 90 meq/ Magnesium Sulfate 20 meq/ Multivitamins 10 ml/Chromium/ Copper/Manganese/ Seleni/Zn 1 ml/ Insulin Human Regular 15 unit/ Total Parenteral Nutrition/Amino Acids/Dextrose/ Fat Emulsion Intravenous 1,800 ml @ 75 mls/hr TPN CONT IV Last administered on 09/07/19at 22:28; Start 09/07/19 at 22:00; Stop 09/08/19 at 21:59; Status DC Potassium Chloride 110 meq/ Magnesium Sulfate 20 meq/ Multivitamins 10 ml/Chromium/ Copper/Manganese/ Seleni/Zn 1 ml/ Insulin Human Regular 15 unit/ Total Parenteral Nutrition/Amino Acids/Dextrose/ Fat Emulsion Intravenous 1,800 ml @ 75 mls/hr TPN CONT IV Last administered on 09/08/19at 22:01; Start 09/08/19 at 22:00; Stop 09/09/19 at 21:59; Status DC Saliva Substitute (Biotene Moisturizing Mouth) 2 spray PRN Q15MIN PRN PO DRY MOUTH; Start 09/08/19 at 11:00 Potassium Chloride 110 meq/ Magnesium Sulfate 20 meq/ Multivitamins 10 ml/Chromium/ Copper/Manganese/ Seleni/Zn 1 ml/ Insulin Human Regular 15 unit/ Total Parenteral Nutrition/Amino Acids/Dextrose/ Fat Emulsion Intravenous 1,800 ml @ 75 mls/hr TPN CONT IV Last administered on 09/09/19at 22:21; Start 09/09/19 at 22:00; Stop 09/10/19 at 21:59; Status DC Potassium Chloride 110 meq/ Magnesium Sulfate 20 meq/ Multivitamins 10 ml/Chromium/ Copper/Manganese/ Seleni/Zn 1 ml/ Insulin Human Regular 15 unit/ Total Parenteral Nutrition/Amino Acids/Dextrose/ Fat Emulsion Intravenous 1,800 ml @ 75 mls/hr TPN CONT IV Last administered on 09/10/19at 22:04; Start 09/10/19 at 22:00; Stop 09/11/19 at 21:59; Status DC Potassium Chloride 110 meq/ Magnesium Sulfate 20 meq/ Multivitamins 10 ml/Chromium/ Copper/Manganese/ Seleni/Zn 1 ml/ Insulin Human Regular 15 unit/ Total Parenteral Nutrition/Amino Acids/Dextrose/ Fat Emulsion Intravenous 1,800 ml @ 75 mls/hr TPN CONT IV Last administered on 09/11/19at 22:48; Start 09/11/19 at 22:00; Stop 09/12/19 at 21:59; Status DC Potassium Chloride 70 meq/ Magnesium Sulfate 20 meq/ Multivitamins 10 ml/Chromium/ Copper/Manganese/ Seleni/Zn 1 ml/ Insulin Human Regular 15 unit/ Total Parenteral Nutrition/Amino Acids/Dextrose/ Fat Emulsion Intravenous 1,800 ml @ 75 mls/hr TPN CONT IV Last administered on 09/12/19at 21:39; Start 09/12/19 at 22:00; Stop 09/13/19 at 21:59; Status DC Meropenem 500 mg/ Sodium Chloride 50 ml @ 100 mls/hr Q6HRS IV Last administered on 09/14/19at 06:02; Start 09/12/19 at 18:00; Stop 09/14/19 at 09:59; Status DC Barium Sulfate (Varibar Thin Liquid Apple) 148 gm 1X ONCE PO ; Start 09/13/19 at 11:45; Stop 09/13/19 at 11:49; Status DC Potassium Chloride 70 meq/ Magnesium Sulfate 20 meq/ Multivitamins 10 ml/Chromium/ Copper/Manganese/ Seleni/Zn 1 ml/ Insulin Human Regular 15 unit/ Total Parenteral Nutrition/Amino Acids/Dextrose/ Fat Emulsion Intravenous 1,800 ml @ 75 mls/hr TPN CONT IV Last administered on 09/13/19at 22:27; Start 09/13/19 at 22:00; Stop 09/14/19 at 21:59; Status DC Piperacillin Sod/ Tazobactam Sod 3.375 gm/Sodium Chloride 50 ml @ 100 mls/hr Q6HRS IV Last administered on 09/22/19at 06:10; Start 09/14/19 at 12:00; Stop 09/22/19 at 07:26; Status DC Potassium Chloride 70 meq/ Magnesium Sulfate 20 meq/ Multivitamins 10 ml/Chromium/ Copper/Manganese/ Seleni/Zn 1 ml/ Insulin Human Regular 15 unit/ Total Parenteral Nutrition/Amino Acids/Dextrose/ Fat Emulsion Intravenous 1,800 ml @ 75 mls/hr TPN CONT IV Last administered on 09/14/19at 22:03; Start 09/14/19 at 22:00; Stop 09/15/19 at 21:59; Status DC Potassium Chloride 70 meq/ Magnesium Sulfate 20 meq/ Multivitamins 10 ml/Chromium/ Copper/Manganese/ Seleni/Zn 1 ml/ Insulin Human Regular 15 unit/ Total Parenteral Nutrition/Amino Acids/Dextrose/ Fat Emulsion Intravenous 1,800 ml @ 75 mls/hr TPN CONT IV Last administered on 09/15/19at 22:33; Start 09/15/19 at 22:00; Stop 09/16/19 at 21:59; Status DC Potassium Chloride 70 meq/ Magnesium Sulfate 20 meq/ Multivitamins 10 ml/Chromium/ Copper/Manganese/ Seleni/Zn 1 ml/ Insulin Human Regular 15 unit/ Total Parenteral Nutrition/Amino Acids/Dextrose/ Fat Emulsion Intravenous 1,800 ml @ 75 mls/hr TPN CONT IV Last administered on 09/16/19at 23:13; Start 09/16/19 at 22:00; Stop 09/17/19 at 21:59; Status DC Potassium Chloride 80 meq/ Magnesium Sulfate 20 meq/ Multivitamins 10 ml/Chromium/ Copper/Manganese/ Seleni/Zn 1 ml/ Insulin Human Regular 15 unit/ Total Parenteral Nutrition/Amino Acids/Dextrose/ Fat Emulsion Intravenous 1,800 ml @ 75 mls/hr TPN CONT IV Last administered on 09/17/19at 22:30; Start 09/17/19 at 22:00; Stop 09/18/19 at 21:59; Status DC Potassium Chloride 80 meq/ Magnesium Sulfate 20 meq/ Multivitamins 10 ml/Chromium/ Copper/Manganese/ Seleni/Zn 1 ml/ Insulin Human Regular 15 unit/ Total Parenteral Nutrition/Amino Acids/Dextrose/ Fat Emulsion Intravenous 1,800 ml @ 75 mls/hr TPN CONT IV Last administered on 09/18/19at 21:54; Start 09/18/19 at 22:00; Stop 09/19/19 at 21:59; Status DC Potassium Chloride/Water 100 ml @ 100 mls/hr 1X ONCE IV Last administered on 09/19/19at 10:15; Start 09/19/19 at 10:00; Stop 09/19/19 at 10:59; Status DC Potassium Chloride 90 meq/ Magnesium Sulfate 20 meq/ Multivitamins 10 ml/Chromium/ Copper/Manganese/ Seleni/Zn 1 ml/ Insulin Human Regular 20 unit/ Total Parenteral Nutrition/Amino Acids/Dextrose/ Fat Emulsion Intravenous 1,800 ml @ 75 mls/hr TPN CONT IV Last administered on 09/19/19at 22:28; Start 09/19/19 at 22:00; Stop 09/20/19 at 21:59; Status DC Potassium Chloride 90 meq/ Magnesium Sulfate 20 meq/ Multivitamins 10 ml/Chromium/ Copper/Manganese/ Seleni/Zn 1 ml/ Insulin Human Regular 20 unit/ Total Parenteral Nutrition/Amino Acids/Dextrose/ Fat Emulsion Intravenous 1,800 ml @ 75 mls/hr TPN CONT IV Last administered on 09/20/19at 22:08; Start 09/20/19 at 22:00; Stop 09/21/19 at 21:59; Status DC Lorazepam (Ativan Inj) 0.25 mg PRN Q4HRS PRN IVP ANXIETY / AGITATION Last admi nistered on 10/15/19at 13:37; Start 09/21/19 at 07:30 Potassium Chloride 90 meq/ Magnesium Sulfate 20 meq/ Multivitamins 10 ml/Chr omium/ Copper/Manganese/ Seleni/Zn 1 ml/ Insulin Human Regular 20 unit/ Total Parenteral Nutrition/Amino Acids/Dextrose/ Fat Emulsion Intravenous 1,800 ml @ 75 mls/hr TPN CONT IV Last administered on 09/21/19at 23:13; Start 09/21/19 at 22:00; Stop 09/22/19 at 21:59; Status DC Furosemide (Lasix) 40 mg DAILY IVP Last administered on 09/23/19at 11:14; Start 09/21/19 at 13:30; Stop 09/25/19 at 09:12; Status DC Fluoxetine HCl (PROzac) 20 mg QHS PEG Last administered on 10/15/19at 21:52; Start 09/22/19 at 21:00 Fentanyl (Duragesic 50mcg/ Hr Patch) 1 patch Q72H TD Last administered on 09/22/19at 21:22; Start 09/22/19 at 21:00; Stop 10/01/19 at 12:00; Status DC Potassium Chloride 40 meq/ Potassium Acetate 60 meq/Magnesium Sulfate 10 meq/ Multivitamins 10 ml/Chromium/ Copper/Manganese/ Seleni/Zn 1 ml/ Insulin Human Regular 20 unit/ Total Parenteral Nutrition/Amino Acids/Dextrose/ Fat Emulsion Intravenous 1,800 ml @ 75 mls/hr TPN CONT IV Last administered on 09/23/19at 00:03; Start 09/22/19 at 22:00; Stop 09/23/19 at 21:59; Status DC Potassium Acetate 80 meq/Magnesium Sulfate 5 meq/ Multivitamins 10 ml/Chromium/ Copper/Manganese/ Seleni/Zn 1 ml/ Insulin Human Regular 20 unit/ Total Parenteral Nutrition/Amino Acids/Dextrose/ Fat Emulsion Intravenous 1,920 ml @ 80 mls/hr TPN CONT IV Last administered on 09/23/19at 21:59; Start 09/23/19 at 22:00; Stop 09/24/19 at 21:59; Status DC Potassium Acetate 60 meq/Magnesium Sulfate 5 meq/ Multivitamins 10 ml/Chromium/ Copper/Manganese/ Seleni/Zn 1 ml/ Insulin Human Regular 30 unit/ Total Parenteral Nutrition/Amino Acids/Dextrose/ Fat Emulsion Intravenous 1,920 ml @ 80 mls/hr TPN CONT IV Last administered on 09/24/19at 21:54; Start 09/24/19 at 22:00; Stop 09/25/19 at 21:59; Status DC Norepinephrine Bitartrate 8 mg/ Dextrose 258 ml @ 13.332 mls/ hr CONT PRN IV PER PROTOCOL Last administered on 09/25/19at 21:46; Start 09/25/19 at 06:30 Albumin Human 500 ml @ 125 mls/hr 1X ONCE IV Last administered on 09/25/19at 08:10; Start 09/25/19 at 08:15; Stop 09/25/19 at 12:14; Status DC Potassium Acetate 40 meq/Magnesium Sulfate 5 meq/ Multivitamins 10 ml/Chromium/ Copper/Manganese/ Seleni/Zn 1 ml/ Insulin Human Regular 30 unit/ Total Parenteral Nutrition/Amino Acids/Dextrose/ Fat Emulsion Intravenous 1,920 ml @ 80 mls/hr TPN CONT IV Last administered on 09/25/19at 22:23; Start 09/25/19 at 22:00; Stop 09/26/19 at 21:59; Status DC Meropenem 1 gm/ Sodium Chloride 100 ml @ 200 mls/hr Q8HRS IV ; Start 09/25/19 at 14:00; Status Cancel Meropenem 1 gm/ Sodium Chloride 100 ml @ 200 mls/hr Q8HRS IV Last administered on 09/25/19at 11:04; Start 09/25/19 at 10:00; Stop 09/25/19 at 13:00; Status DC Meropenem 1 gm/ Sodium Chloride 100 ml @ 200 mls/hr Q12HR IV Last administered on 10/13/19at 08:27; Start 09/25/19 at 21:00; Stop 10/13/19 at 08:56; Status DC Sodium Chloride 1,000 ml @ 1,000 mls/hr 1X ONCE IV Last administered on 09/25/19at 11:06; Start 09/25/19 at 10:45; Stop 09/25/19 at 11:44; Status DC Micafungin Sodium 100 mg/Dextrose 100 ml @ 100 mls/hr Q24H IV Last administered on 10/12/19at 12:34; Start 09/25/19 at 11:00; Stop 10/13/19 at 08:56; Status DC Daptomycin 410 mg/ Sodium Chloride 50 ml @ 100 mls/hr Q24H IV Last administered on 09/27/19at 13:33; Start 09/25/19 at 14:00; Stop 09/28/19 at 08:30; Status DC Midazolam HCl (Versed) 2 mg STK-MED ONCE .ROUTE ; Start 09/25/19 at 14:47; Stop 09/25/19 at 14:48; Status DC Fentanyl Citrate (Fentanyl 2ml Vial) 100 mcg STK-MED ONCE .ROUTE ; Start 09/25/19 at 14:47; Stop 09/25/19 at 14:48; Status DC Flumazenil (Romazicon) 0.5 mg STK-MED ONCE IV ; Start 09/25/19 at 14:48; Stop at 14:48; Status DC Naloxone HCl (Narcan) 0.4 mg STK-MED ONCE .ROUTE ; Start 09/25/19 at 14:48; Stop 09/25/19 at 14:48; Status DC Lidocaine HCl (Lidocaine 1% 20ml Vial) 20 ml STK-MED ONCE .ROUTE ; Start 09/25/19 at 14:48; Stop 09/25/19 at 14:48; Status DC Midazolam HCl (Versed) 2 mg 1X ONCE IV Last administered on 09/25/19at 15:28; Start 09/25/19 at 15:00; Stop 09/25/19 at 15:01; Status DC Fentanyl Citrate (Fentanyl 2ml Vial) 100 mcg 1X ONCE IV Last administered on 09/25/19at 15:28; Start 09/25/19 at 15:00; Stop 09/25/19 at 15:01; Status DC Lidocaine HCl (Lidocaine 1% 20ml Vial) 20 ml 1X ONCE INJ Last administered on 09/25/19at 15:30; Start 09/25/19 at 15:00; Stop 09/25/19 at 15:01; Status DC Sodium Chloride 1,000 ml @ 100 mls/hr Q10H IV Last administered on 10/04/19at 07:30; Start 09/25/19 at 20:00; Stop 10/04/19 at 11:26; Status DC Sodium Bicarbonate (Sodium Bicarb Adult 8.4% Syr) 50 meq 1X ONCE IV Last administered on 09/25/19at 21:47; Start 09/25/19 at 22:00; Stop 09/25/19 at 22:01; Status DC Potassium Acetate 40 meq/Magnesium Sulfate 5 meq/ Multivitamins 10 ml/Chromium/ Copper/Manganese/ Seleni/Zn 1 ml/ Insulin Human Regular 30 unit/ Total Parenteral Nutrition/Amino Acids/Dextrose/ Fat Emulsion Intravenous 1,920 ml @ 80 mls/hr TPN CONT IV Last administered on 09/26/19at 22:28; Start 09/26/19 at 22:00; Stop 09/27/19 at 21:59; Status DC Sodium Chloride 500 ml @ 500 mls/hr 1X ONCE IV Last administered on 09/27/19at 06:39; Start 09/27/19 at 06:45; Stop 09/27/19 at 07:44; Status DC Potassium Acetate 40 meq/Magnesium Sulfate 5 meq/ Multivitamins 10 ml/Chromium/ Copper/Manganese/ Seleni/Zn 1 ml/ Insulin Human Regular 30 unit/ Total Pare nteral Nutrition/Amino Acids/Dextrose/ Fat Emulsion Intravenous 1,920 ml @ 80 mls/hr TPN CONT IV Last administered on 09/27/19at 22:03; Start 09/27/19 at 22:00; Stop 09/28/19 at 21:59; Status DC Metoprolol Tartrate (Lopressor Vial) 5 mg PRN Q6HRS PRN IVP HYPERTENSION Last administered on 10/06/19at 10:14; Start 09/28/19 at 09:00 Potassium Acetate 40 meq/Magnesium Sulfate 5 meq/ Multivitamins 10 ml/Chromium/ Copper/Manganese/ Seleni/Zn 1 ml/ Insulin Human Regular 30 unit/ Total Parenteral Nutrition/Amino Acids/Dextrose/ Fat Emulsion Intravenous 1,920 ml @ 80 mls/hr TPN CONT IV Last administered on 09/28/19at 21:26; Start 09/28/19 at 22:00; Stop 09/29/19 at 21:59; Status DC Potassium Acetate 40 meq/Magnesium Sulfate 5 meq/ Multivitamins 10 ml/Chromium/ Copper/Manganese/ Seleni/Zn 1 ml/ Insulin Human Regular 30 unit/ Total Parenteral Nutrition/Amino Acids/Dextrose/ Fat Emulsion Intravenous 1,920 ml @ 80 mls/hr TPN CONT IV Last administered on 09/29/19at 23:23; Start 09/29/19 at 22:00; Stop 09/30/19 at 21:59; Status DC Potassium Acetate 40 meq/Magnesium Sulfate 5 meq/ Multivitamins 10 ml/Chromium/ Copper/Manganese/ Seleni/Zn 1 ml/ Insulin Human Regular 30 unit/ Total Parenteral Nutrition/Amino Acids/Dextrose/ Fat Emulsion Intravenous 1,920 ml @ 80 mls/hr TPN CONT IV Last administered on 09/30/19at 21:35; Start 09/30/19 at 22:00; Stop 10/01/19 at 21:59; Status DC Furosemide (Lasix) 20 mg 1X ONCE IVP Last administered on 10/01/19at 06:26; Start 10/01/19 at 06:15; Stop 10/01/19 at 06:16; Status DC Methylprednisolone Sodium Succinate (SOLU-Medrol 125MG VIAL) 125 mg 1X ONCE IV Last administered on 10/01/19at 06:26; Start 10/01/19 at 06:15; Stop 10/01/19 at 06:16; Status DC Albuterol/ Ipratropium (Duoneb) 3 ml Q4HRS NEB Last administered on 10/17/19at 04:15; Start 10/01/19 at 08:00 Fentanyl Citrate 30 ml @ 0 mls/hr CONT PRN IV SEE PROTOCOL Last administered on 10/15/19at 23:26; Start 10/01/19 at 06:00 Propofol 100 ml @ 0 mls/hr CONT PRN IV SEE PROTOCOL Last administered on 10/08/19at 23:50; Start 10/01/19 at 06:00 Fentanyl Citrate (Fentanyl 2ml Vial) 25 mcg PRN Q1HR PRN IV SEE COMMENTS; Start 10/01/19 at 06:00 Fentanyl Citrate (Fentanyl 2ml Vial) 50 mcg PRN Q1HR PRN IV SEE COMMENTS; Start 10/01/19 at 06:00 Chlorhexidine Gluconate (Peridex) 15 ml BID MM ; Start 10/01/19 at 09:00; Stop 10/01/19 at 07:58; Status DC Potassium Acetate 40 meq/Magnesium Sulfate 5 meq/ Multivitamins 10 ml/Chromium/ Copper/Manganese/ Seleni/Zn 1 ml/ Insulin Human Regular 30 unit/ Total Parenteral Nutrition/Amino Acids/Dextrose/ Fat Emulsion Intravenous 1,920 ml @ 80 mls/hr TPN CONT IV Last administered on 10/01/19at 21:19; Start 10/01/19 at 22:00; Stop 10/02/19 at 21:59; Status DC Acetylcysteine (Mucomyst 20% Resp Treatment) 600 mg BID NEB Last administered on 10/07/19at 09:33; Start 10/01/19 at 21:00; Stop 10/07/19 at 10:39; Status DC Magnesium Sulfate 100 ml @ 25 mls/hr 1X ONCE IV Last administered on 10/01/19at 15:48; Start 10/01/19 at 15:45; Stop 10/01/19 at 19:44; Status DC Potassium Acetate 40 meq/Magnesium Sulfate 5 meq/ Multivitamins 10 ml/Chromium/ Copper/Manganese/ Seleni/Zn 1 ml/ Insulin Human Regular 30 unit/ Total Parenteral Nutrition/Amino Acids/Dextrose/ Fat Emulsion Intravenous 1,920 ml @ 80 mls/hr TPN CONT IV Last administered on 10/02/19at 21:35; Start 10/02/19 at 22:00; Stop 10/03/19 at 21:59; Status DC Potassium Chloride/Water 100 ml @ 100 mls/hr Q1H IV Last administered on 10/03/19at 08:31; Start 10/03/19 at 07:00; Stop 10/03/19 at 08:59; Status DC Potassium Acetate 40 meq/Magnesium Sulfate 5 meq/ Multivitamins 10 ml/Chromium/ Copper/Manganese/ Seleni/Zn 1 ml/ Insulin Human Regular 30 unit/ Total Parenteral Nutrition/Amino Acids/Dextrose/ Fat Emulsion Intravenous 1,920 ml @ 80 mls/hr TPN CONT IV Last administered on 10/03/19at 21:54; Start 10/03/19 at 22:00; Stop 10/04/19 at 19:34; Status DC Lidocaine HCl (Buffered Lidocaine 1%) 3 ml STK-MED ONCE .ROUTE ; Start 10/03/19 at 12:14; Stop 10/03/19 at 12:14; Status DC Lidocaine HCl (Buffered Lidocaine 1%) 3 ml 1X ONCE IJ Last administered on 10/03/19at 13:11; Start 10/03/19 at 13:00; Stop 10/03/19 at 13:01; Status DC Magnesium Sulfate 50 ml @ 25 mls/hr 1X ONCE IV ; Start 10/04/19 at 08:15; Stop 10/04/19 at 10:14; Status DC Potassium Acetate 40 meq/Magnesium Sulfate 10 meq/ Multivitamins 10 ml/Chromium/ Copper/Manganese/ Seleni/Zn 1 ml/ Insulin Human Regular 20 unit/ Total Parenteral Nutrition/Amino Acids/Dextrose/ Fat Emulsion Intravenous 1,920 ml @ 80 mls/hr TPN CONT IV Last administered on 10/04/19at 21:32; Start 10/04/19 at 22:00; Stop 10/05/19 at 21:59; Status DC Potassium Chloride/Water 100 ml @ 100 mls/hr Q1H IV Last administered on 10/05/19at 09:12; Start 10/05/19 at 08:00; Stop 10/05/19 at 09:59; Status DC Alteplase, Recombinant (Cathflo For Central Catheter Clearance) 4 mg 1X ONCE INT CAT ; Start 10/05/19 at 09:15; Stop 10/05/19 at 09:16; Status UNV Alteplase, Recombinant (Cathflo For Central Catheter Clearance) 4 mg 1X ONCE INT CAT ; Start 10/05/19 at 09:15; Stop 10/05/19 at 09:16; Status UNV Alteplase, Recombinant (Cathflo For Central Catheter Clearance) 4 mg 1X ONCE INT CAT ; Start 10/05/19 at 09:15; Stop 10/05/19 at 09:16; Status UNV Alteplase, Recombinant 4 mg/ Sodium Chloride 20 ml @ 20 mls/hr 1X ONCE IV Last administered on 10/05/19at 10:10; Start 10/05/19 at 10:00; Stop 10/05/19 at 10:59; Status DC Alteplase, Recombinant 4 mg/ Sodium Chloride 20 ml @ 20 mls/hr 1X ONCE IV Last administered on 10/05/19at 10:09; Start 10/05/19 at 10:00; Stop 10/05/19 at 10:59; Status DC Alteplase, Recombinant 4 mg/ Sodium Chloride 20 ml @ 20 mls/hr 1X ONCE IV Last administered on 10/05/19at 10:09; Start 10/05/19 at 10:00; Stop 10/05/19 at 10:59; Status DC Potassium Acetate 60 meq/Magnesium Sulfate 10 meq/ Multivitamins 10 ml/Chromium/ Copper/Manganese/ Seleni/Zn 1 ml/ Insulin Human Regular 20 unit/ Total Parenteral Nutrition/Amino Acids/Dextrose/ Fat Emulsion Intravenous 1,920 ml @ 80 mls/hr TPN CONT IV Last administered on 10/05/19at 21:55; Start 10/05/19 at 22:00; Stop 10/06/19 at 21:59; Status DC Albumin Human 500 ml @ 125 mls/hr 1X ONCE IV Last administered on 10/06/19at 12:01; Start 10/06/19 at 11:15; Stop 10/06/19 at 15:14; Status DC Sodium Chloride 500 ml @ 500 mls/hr 1X ONCE IV Last administered on 10/06/19at 13:50; Start 10/06/19 at 11:15; Stop 10/06/19 at 12:14; Status DC Potassium Acetate 60 meq/Magnesium Sulfate 14 meq/ Multivitamins 10 ml/Chromium/ Copper/Manganese/ Seleni/Zn 1 ml/ Insulin Human Regular 20 unit/ Total Parenteral Nutrition/Amino Acids/Dextrose/ Fat Emulsion Intravenous 1,920 ml @ 80 mls/hr TPN CONT IV Last administered on 10/06/19at 22:26; Start 10/06/19 at 22:00; Stop 10/07/19 at 21:59; Status DC Ciprofloxacin/ Dextrose 200 ml @ 200 mls/hr Q12HR IV Last administered on 10/13/19at 08:27; Start 10/06/19 at 21:00; Stop 10/13/19 at 08:56; Status DC Albumin Human 250 ml @ 62.5 mls/hr 1X ONCE IV Last administered on 10/07/19at 11:09; Start 10/07/19 at 11:00; Stop 10/07/19 at 14:59; Status DC Furosemide (Lasix) 20 mg 1X ONCE IVP Last administered on 10/07/19at 14:52; Start 10/07/19 at 10:45; Stop 10/07/19 at 10:49; Status DC Potassium Acetate 60 meq/Magnesium Sulfate 14 meq/ Multivitamins 10 ml/Chromium/ Copper/Manganese/ Seleni/Zn 1 ml/ Insulin Human Regular 15 unit/ Total Parenteral Nutrition/Amino Acids/Dextrose/ Fat Emulsion Intravenous 1,920 ml @ 80 mls/hr TPN CONT IV Last administered on 10/07/19at 22:08; Start 10/07/19 at 22:00; Stop 10/08/19 at 21:59; Status DC Potassium Acetate 60 meq/Magnesium Sulfate 14 meq/ Multivitamins 10 ml/Chromium/ Copper/Manganese/ Seleni/Zn 1 ml/ Insulin Human Regular 15 unit/ Total Parenteral Nutrition/Amino Acids/Dextrose/ Fat Emulsion Intravenous 1,920 ml @ 80 mls/hr TPN CONT IV Last administered on 10/08/19at 22:12; Start 10/08/19 at 22:00; Stop 10/09/19 at 21:59; Status DC Potassium Acetate 60 meq/Magnesium Sulfate 14 meq/ Multivitamins 10 ml/Chromium/ Copper/Manganese/ Seleni/Zn 1 ml/ Insulin Human Regular 15 unit/ Total Parenteral Nutrition/Amino Acids/Dextrose/ Fat Emulsion Intravenous 1,920 ml @ 80 mls/hr TPN CONT IV Last administered on 10/09/19at 22:22; Start 10/09/19 at 22:00; Stop 10/10/19 at 21:59; Status DC Furosemide (Lasix) 20 mg 1X ONCE IVP Last administered on 10/10/19at 11:07; Start 10/10/19 at 10:30; Stop 10/10/19 at 10:34; Status DC Potassium Acetate 60 meq/Magnesium Sulfate 14 meq/ Multivitamins 10 ml/Chromium/ Copper/Manganese/ Seleni/Zn 1 ml/ Insulin Human Regular 15 unit/ Sodium Chloride 20 meq/Total Parenteral Nutrition/Amino Acids/Dextrose/ Fat Emulsion Intravenous 1,920 ml @ 80 mls/hr TPN CONT IV Last administered on 10/10/19at 21:54; Start 10/10/19 at 22:00; Stop 10/11/19 at 21:59; Status DC Potassium Acetate 30 meq/Magnesium Sulfate 14 meq/ Multivitamins 10 ml/Chromium/ Copper/Manganese/ Seleni/Zn 1 ml/ Insulin Human Regular 15 unit/ Sodium Chloride 20 meq/Potassium Chloride 30 meq/ Total Parenteral Nutrition/Amino Acids/Dextrose/ Fat Emulsion Intravenous 1,920 ml @ 80 mls/hr TPN CONT IV Last administered on 10/11/19at 21:46; Start 10/11/19 at 22:00; Stop 10/12/19 at 21:59; Status DC Sodium Chloride 80 meq/Potassium Chloride 30 meq/ Potassium Acetate 30 meq/Magnesium Sulfate 14 meq/ Multivitamins 10 ml/Chromium/ Copper/Manganese/ Seleni/Zn 1 ml/ Insulin Human Regular 15 unit/ Total Parenteral Nutrition/Amino Acids/Dextrose/ Fat Emulsion Intravenous 1,920 ml @ 80 mls/hr TPN CONT IV Las t administered on 10/12/19at 22:33; Start 10/12/19 at 22:00; Stop 10/13/19 at 21:59; Status DC Furosemide (Lasix) 40 mg 1X ONCE IVP Last administered on 10/12/19at 16:27; Start 10/12/19 at 15:30; Stop 10/12/19 at 15:33; Status DC Albumin Human 250 ml @ 62.5 mls/hr 1X ONCE IV Last administered on 10/12/19at 16:27; Start 10/12/19 at 15:30; Stop 10/12/19 at 19:29; Status DC Sodium Chloride 80 meq/Potassium Chloride 30 meq/ Potassium Acetate 30 meq/Magnesium Sulfate 14 meq/ Multivitamins 10 ml/Chromium/ Copper/Manganese/ Seleni/Zn 1 ml/ Insulin Human Regular 15 unit/ Total Parenteral Nutrition/Amino Acids/Dextrose/ Fat Emulsion Intravenous 1,920 ml @ 80 mls/hr TPN CONT IV Last administered on 10/13/19at 22:25; Start 10/13/19 at 22:00; Stop 10/14/19 at 21:59; Status DC Sodium Chloride 80 meq/Potassium Chloride 30 meq/ Potassium Acetate 30 meq/Magnesium Sulfate 14 meq/ Multivitamins 10 ml/Chromium/ Copper/Manganese/ Seleni/Zn 1 ml/ Insulin Human Regular 15 unit/ Total Parenteral Nutrition/Amino Acids/Dextrose/ Fat Emulsion Intravenous 1,920 ml @ 80 mls/hr TPN CONT IV Last administered on 10/14/19at 21:32; Start 10/14/19 at 22:00; Stop 10/15/19 at 21:59; Status DC Sodium Chloride 80 meq/Potassium Chloride 30 meq/ Potassium Acetate 30 meq/Magnesium Sulfate 14 meq/ Multivitamins 10 ml/Chromium/ Copper/Manganese/ Seleni/Zn 1 ml/ Insulin Human Regular 15 unit/ Total Parenteral Nutrition/Amino Acids/Dextrose/ Fat Emulsion Intravenous 1,920 ml @ 80 mls/hr TPN CONT IV Last administered on 10/15/19at 21:53; Start 10/15/19 at 22:00; Stop 10/16/19 at 21:59; Status DC Acetylcysteine (Mucomyst 20% Resp Treatment) 600 mg RTBID NEB Last administered on 10/16/19at 19:40; Start 10/15/19 at 12:00 Sodium Chloride 80 meq/Potassium Chloride 30 meq/ Potassium Acetate 30 meq/M agnesium Sulfate 14 meq/ Multivitamins 10 ml/Chromium/ Copper/Manganese/ Seleni/Zn 1 ml/ Insulin Human Regular 15 unit/ Total Parenteral Nutrition/Amino Acids/Dextrose/ Fat Emulsion Intravenous 1,920 ml @ 80 mls/hr TPN CONT IV Last administered on 10/16/19at 22:06; Start 10/16/19 at 22:00; Stop 10/17/19 at 21:59 Meropenem 500 mg/ Sodium Chloride 50 ml @ 100 mls/hr Q6HRS IV Last administered on 10/17/19at 05:54; Start 10/16/19 at 18:00 Daptomycin 500 mg/ Sodium Chloride 50 ml @ 100 mls/hr Q24H IV Last a dministered on 10/16/19at 20:03; Start 10/16/19 at 19:00 Active Scripts Active Reported Bisoprolol Fumarate 5 Mg Tablet 10 Mg PO DAILY Vitals/I & O Vital Sign - Last 24 Hours 10/16/19 10/16/19 10/16/19 10/16/19 08:45 09:00 10:00 11:00 Pulse 110 108 106 Resp B/P (MAP) 123/72 (89) 130/70 (90) 104/66 (79) Pulse Ox 100 100 100 100 O2 Delivery Tracheal Collar Tracheal Collar Tracheal Collar Tracheal Collar O2 Flow Rate 8.0 10/16/19 10/16/19 10/16/19 10/16/19 11:58 12:00 12:15 13:00 Temp 98.9 98.9 Pulse 109 109 Resp B/P (MAP) 113/72 (86) 117/75 (89) Pulse Ox 100 100 100 O2 Delivery Trach Collar Tracheal Collar Tracheal Collar Tracheal Collar O2 Flow Rate 8.0 10/16/19 10/16/19 10/16/19 10/16/19 14:00 15:00 16:00 16:00 Temp Pulse 112 118 122 Resp B/P (MAP) 126/75 (92) 121/86 (98) 138/77 (97) Pulse Ox 100 100 100 O2 Delivery Tracheal Collar Tracheal Collar Trach Collar Tracheal Collar 10/16/19 10/16/19 10/16/19 10/16/19 16:10 17:00 18:00 19:00 Temp 101.3 101.3 Pulse 127 128 132 Resp 30 B/P (MAP) 110/68 (82) 119/69 (86) 129/80 (96) Pulse Ox 98 100 100 97 O2 Delivery Tracheal Collar Tracheal Collar Tracheal Collar Tracheal Collar O2 Flow Rate 8.0 10/16/19 10/16/19 10/16/19 6/28/20 19:40 20:00 20:00 21:00 Temp 101.4 101.4 Pulse 134 140 Resp 31 48 B/P (MAP) 133/60 (84) 133/81 (98) Pulse Ox 96 93 95 O2 Delivery Tracheal Collar Tracheal Collar Trach Collar Tracheal Collar O2 Flow Rate 8.0 8.0 10/16/19 10/16/19 10/17/19 10/17/19 22:00 23:00 00:00 00:00 Temp 99.7 99.7 Pulse 130 120 117 Resp 27 30 29 B/P (MAP) 122/58 (79) 120/59 (79) 107/62 (77) Pulse Ox 95 92 96 O2 Delivery Tracheal Collar Tracheal Collar Tracheal Collar Trach Collar O2 Flow Rate 8.0 10/17/19 10/17/19 10/17/19 10/17/19 01:00 01:12 02:00 03:00 Pulse 111 108 103 Resp 37 37 19 B/P (MAP) 86/64 (71) 102/60 (74) 102/64 (77) Pulse Ox 97 96 97 98 O2 Delivery Tracheal Collar Tracheal Collar Tracheal Collar Tracheal Collar O2 Flow Rate 8.0 10/17/19 10/17/19 10/17/19 10/17/19 04:00 04:00 04:15 05:00 Temp 97.9 97.9 Pulse 103 102 Resp 26 B/P (MAP) 109/65 (80) 114/72 (86) Pulse Ox 99 100 98 O2 Delivery Tracheal Collar Trach Collar Tracheal Collar Tracheal Collar O2 Flow Rate 8.0 8.0 10/17/19 10/17/19 10/17/19 06:00 07:00 08:00 Temp 98.0 98.0 Pulse 108 116 119 Resp 28 24 24 B/P (MAP) 119/89 (99) 120/77 (91) 113/79 (90) Pulse Ox 98 98 99 O2 Delivery Tracheal Collar Tracheal Collar Tracheal Collar Intake and Output 10/16/19 10/16/19 10/17/19 15:00 23:00 07:00 Intake Total 1066 ml 1232 ml Output Total 415 ml 705 ml 550 ml Balance -415 ml 361 ml 682 ml Justicifation of Admission Dx: Justifications for Admission: Justification of Admission Dx: Yes ABI AHN MD Oct 17, 2019 08:31
--- NOTE | 2019-10-17 08:56 | PDOC ---
Infectious Disease Note Subjective: Subjective Pt drowsy Pt febrile yesterday T max 101.4 afebrile this am Remains on trach collar Vital Signs: Vital Signs Vital Signs Date Time Temp Pulse Resp B/P (MAP) Pulse Ox O2 Delivery O2 Flow Rate FiO2 10/17/19 08:33 100 Tracheal Collar 8.0 10/17/19 08:00 98.0 119 24 113/79 (90) 98.0 Physical Exam: PHYSICAL EXAM GENERAL: Patient alert awake comfortable HEENT: Anicteric, no thrush, NG tube in place NECK: Tracheostomy LUNGS: Diminished aeration bases, no accessory muscle use - CT on left HEART: S1, S2,regular ABDOMEN: Mild distention, bowel sounds present, soft, grimaces to palpation, drains x 3 : Lind ( 09/24) EXTREMITIES: + edema BLE SKIN: no signs of gen rash LUE-PICC without signs of complications Medications: Inpatient Meds: Current Medications Medications (Trade) Dose Ordered Sig/Yvon Start Time Stop Time Status Last Admin Dose Admin Acetaminophen (Tylenol Supp) 650 mg PRN Q6HRS PRN 07/12/19 10:30 10/16/19 20:49 650 MG Acetaminophen (Tylenol) 650 mg PRN Q6HRS PRN 07/09/19 03:36 08/31/19 10:25 DC 08/04/19 19:56 650 MG Acetylcysteine (Mucomyst 20% Resp Treatment) 600 mg RTBID 10/15/19 12:00 10/16/19 19:40 600 MG Albumin Human 250 ml @ 62.5 mls/hr 1X ONCE 10/12/19 15:30 10/12/19 19:29 DC 10/12/19 16:27 62.5 MLS/HR Albuterol Sulfate (Ventolin Neb Soln) 2.5 mg 1X ONCE 07/05/19 22:30 07/05/19 22:31 DC 07/06/19 00:56 2.5 MG Albuterol/ Ipratropium (Duoneb) 3 ml Q4HRS 10/01/19 08:00 10/17/19 08:32 3 ML Alteplase, Recombinant (Cathflo For Central Catheter Clearance) 4 mg 1X ONCE 10/05/19 09:15 10/05/19 09:16 UNV Alteplase, Recombinant 4 mg/ Sodium Chloride 20 ml @ 20 mls/hr 1X ONCE 10/05/19 10:00 10/05/19 10:59 DC 10/05/19 10:09 20 MLS/HR Amino Acids/ Glycerin/ Electrolytes 1,000 ml @ 75 mls/hr [id number] 08/08/19 21:15 UNV Artificial Tears (Artificial Tears) 1 drop PRN Q15MIN PRN 08/17/19 05:30 10/11/19 21:17 1 DROP Atenolol (Tenormin) 100 mg DAILY 07/05/19 09:00 07/04/19 20:08 DC Atropine Sulfate (ATROPINE 0.5mg SYRINGE) 0.5 mg PRN Q5MIN PRN 07/21/19 08:15 Barium Sulfate (Varibar Thin Liquid Apple) 148 gm 1X ONCE 09/13/19 11:45 09/13/19 11:49 DC Benzocaine (Hurricaine One) 1 spray 1X ONCE 07/08/19 14:30 07/08/19 14:31 DC 07/08/19 16:38 1 SPRAY Bisacodyl (Dulcolax Supp) 10 mg STK-MED ONCE 08/15/19 10:59 08/15/19 10:59 DC Bumetanide (Bumex) 2 mg DAILY 08/26/19 10:00 09/05/19 17:15 DC 09/05/19 08:07 2 MG Bupivacaine HCl/ Epinephrine Bitart (Sensorcain-Epi 0.5%-1:667487 Mpf) 30 ml STK-MED ONCE 08/15/19 10:58 08/15/19 10:58 DC 08/15/19 12:01 7 ML Calcium Carbonate/ Glycine (Tums) 500 mg PRN AFTMEALHC PRN 07/06/19 17:45 08/31/19 10:25 DC Calcium Chloride 1000 mg/Sodium Chloride 110 ml @ 220 mls/hr 1X ONCE 07/05/19 22:30 07/05/19 22:59 DC 07/05/19 22:11 220 MLS/HR Calcium Chloride 3000 mg/Sodium Chloride 1,030 ml @ 50 mls/hr [id number] 07/07/19 08:00 07/09/19 15:23 DC 3/21/20 02:17 50 MLS/HR Calcium Gluconate (Calcium Gluconate) 2,000 mg 1X ONCE 07/07/19 02:15 07/07/19 02:16 DC 07/07/19 02:19 2,000 MG Calcium Gluconate 1000 mg/Sodium Chloride 110 ml @ 220 mls/hr 1X ONCE 07/06/19 03:30 07/06/19 03:59 DC 07/06/19 03:21 220 MLS/HR Calcium Gluconate 2000 mg/Sodium Chloride 120 ml @ 220 mls/hr 1X ONCE 07/06/19 07:30 07/06/19 08:02 DC 07/06/19 09:05 220 MLS/HR Cefepime HCl (Maxipime) 2 gm Q12HR 07/13/19 09:00 07/27/19 09:58 DC 07/26/19 20:56 2 GM Cellulose (Surgicel Fibrillar 1x2) 1 each STK-MED ONCE 07/25/19 11:00 07/25/19 11:01 DC Cellulose (Surgicel Hemostat 2x14) 1 each STK-MED ONCE 08/15/19 10:58 08/15/19 10:59 DC Cellulose (Surgicel Hemostat 4x8) 1 each STK-MED ONCE 08/15/19 10:58 08/15/19 10:59 DC Chlorhexidine Gluconate (Peridex) 15 ml BID 10/01/19 09:00 10/01/19 07:58 DC Ciprofloxacin/ Dextrose 200 ml @ 200 mls/hr Q12HR 10/06/19 21:00 10/13/19 08:56 DC 10/13/19 08:27 200 MLS/HR Cyclobenzaprine HCl (Flexeril) 10 mg PRN Q6HRS PRN 08/18/19 10:45 Daptomycin 410 mg/ Sodium Chloride 50 ml @ 100 mls/hr Q24H 09/25/19 14:00 09/28/19 08:30 DC 09/27/19 13:33 100 MLS/HR Daptomycin 430 mg/ Sodium Chloride 50 ml @ 100 mls/hr Q24H 08/13/19 13:00 08/18/19 20:58 DC 08/18/19 13:00 100 MLS/HR Daptomycin 450 mg/ Sodium Chloride 50 ml @ 100 mls/hr Q24H 09/04/19 09:00 09/08/19 08:30 DC 09/07/19 09:25 100 MLS/HR Daptomycin 485 mg/ Sodium Chloride 50 ml @ 100 mls/hr Q24H 08/22/19 11:00 08/30/19 07:44 DC 08/29/19 13:10 100 MLS/HR Daptomycin 500 mg/ Sodium Chloride 50 ml @ 100 mls/hr Q24H 10/16/19 19:00 10/16/19 20:03 100 MLS/HR Dexamethasone Sodium Phosphate (Decadron) 4 mg STK-MED ONCE 08/15/19 10:56 08/15/19 10:57 DC Dexmedetomidine HCl 400 mcg/ Sodium Chloride 100 ml @ 0 mls/hr CONT PRN 07/21/19 08:15 09/17/19 18:31 DC 09/17/19 12:57 8 MLS/HR Dextrose (Dextrose 50%-Water Syringe) 12.5 gm PRN Q15MIN PRN 07/04/19 09:30 Digoxin (Lanoxin) 125 mcg 1X ONCE 07/07/19 18:00 07/07/19 18:01 DC 07/07/19 17:10 125 MCG Diphenhydramine HCl (Benadryl) 25 mg 1X PRN PRN 08/12/19 15:45 08/13/19 15:44 DC Duloxetine HCl (Cymbalta) 30 mg DAILY 08/28/19 14:00 08/31/19 10:25 DC 08/29/19 09:48 30 MG Enoxaparin Sodium (Lovenox 100mg Syringe) 100 mg Q12HR 08/09/19 21:00 UNV Enoxaparin Sodium (Lovenox 40mg Syringe) 40 mg Q24H 09/04/19 17:00 09/25/19 06:50 DC 09/23/19 17:44 40 MG Etomidate (Amidate) 8 mg 1X ONCE 07/11/19 08:30 07/11/19 08:31 DC 07/11/19 08:33 8 MG Fentanyl (Duragesic 50mcg/ Hr Patch) 1 patch Q72H 09/22/19 21:00 10/01/19 12:00 DC 09/22/19 21:22 1 PATCH Fentanyl Citrate (Fentanyl 2ml Vial) 50 mcg PRN Q1HR PRN 10/01/19 06:00 Fentanyl Citrate (Fentanyl 5ml Vial) 250 mcg 1X ONCE 08/26/19 09:15 08/26/19 09:16 DC 08/26/19 09:30 50 MCG Flumazenil (Romazicon) 0.5 mg STK-MED ONCE 09/25/19 14:48 09/25/19 14:48 DC Fluoxetine HCl (PROzac) 20 mg QHS 09/22/19 21:00 10/15/19 21:52 20 MG Furosemide (Lasix) 40 mg 1X ONCE 10/12/19 15:30 10/12/19 15:33 DC 10/12/19 16:27 40 MG Haloperidol Lactate (Haldol Inj) 3 mg 1X ONCE 08/22/19 14:30 08/22/19 14:31 DC 08/22/19 14:37 3 MG Heparin Sodium (Porcine) (Hep Lock Adult) 500 unit STK-MED ONCE 07/26/19 09:29 07/26/19 09:30 DC Heparin Sodium (Porcine) (Heparin Sodium) 5,000 unit Q12HR 08/15/19 21:00 08/25/19 09:59 DC 08/24/19 20:57 5,000 UNIT Heparin Sodium (Porcine) 1000 unit/Sodium Chloride 1,001 ml @ 1,001 mls/hr 1X ONCE 08/15/19 12:00 08/15/19 12:59 DC Hydromorphone HCl (Dilaudid Standard [employer]YS[employer]IAN [employer]ICE MANAGER) 12 mg STK-MED ONCE 08/19/19 15:50 08/30/19 11:24 DC Hydromorphone HCl (Dilaudid) 1 mg PRN Q4HRS PRN 08/22/19 19:00 09/05/19 17:10 DC 09/05/19 06:25 1 MG Info (CONTRAST GIVEN -- Rx MONITORING) 1 each PRN DAILY PRN 07/18/19 11:45 07/20/19 11:44 DC Info (Icu Electrolyte Protocol) 1 ea CONT PRN PRN 07/17/19 13:15 Info (PHARMACY MONITORING -- do not chart) 1 each PRN DAILY PRN 08/12/19 15:45 09/13/19 14:14 DC Info (Tpn Per Pharmacy) 1 each PRN DAILY PRN 07/06/19 12:30 UNV Insulin Human Lispro (HumaLOG) 0-9 UNITS Q6HRS 07/04/19 09:30 10/12/19 18:05 4 UNITS Insulin Human Regular (HumuLIN R VIAL) 5 unit 1X ONCE 07/05/19 22:30 07/05/19 22:31 DC 07/05/19 22:14 5 UNIT Iohexol (Omnipaque 240 Mg/ml) 30 ml 1X ONCE 07/18/19 11:30 07/18/19 11:33 DC 07/18/19 11:30 30 ML Iohexol (Omnipaque 300 Mg/ml) 50 ml STK-MED ONCE 08/15/19 10:58 08/15/19 10:59 DC Iohexol (Omnipaque 350 Mg/ml) 90 ml 1X ONCE 07/04/19 03:30 07/04/19 03:31 DC 07/04/19 03:25 90 ML Ketorolac Tromethamine (Toradol 30mg Vial) 30 mg 1X ONCE 07/04/19 03:00 07/04/19 03:01 DC 07/04/19 02:54 30 MG Lidocaine HCl (Buffered Lidocaine 1%) 3 ml 1X ONCE 10/03/19 13:00 10/03/19 13:01 DC 10/03/19 13:11 12 ML Lidocaine HCl (Glydo (Lidocaine) Jelly) 1 ramu 1X ONCE 07/08/19 14:30 07/08/19 14:31 DC 07/08/19 16:38 1 RAMU Lidocaine HCl (Lidocaine 1% 20ml Vial) 20 ml 1X ONCE 09/25/19 15:00 09/25/19 15:01 DC 09/25/19 15:30 20 ML Lidocaine HCl (Xylocaine-Mpf 1% 2ml Vial) 2 ml PRN 1X PRN 08/15/19 07:00 08/16/19 06:59 DC Linezolid/Dextrose 300 ml @ 300 mls/hr Q12HR 09/04/19 09:00 09/07/19 08:11 DC 09/06/19 21:08 300 MLS/HR Lorazepam (Ativan Inj) 0.25 mg PRN Q4HRS PRN 09/21/19 07:30 10/15/19 13:37 0.25 MG Magnesium Sulfate 50 ml @ 25 mls/hr 1X ONCE 10/04/19 08:15 10/04/19 10:14 DC Meropenem 1 gm/ Sodium Chloride 100 ml @ 200 mls/hr Q12HR 09/25/19 21:00 10/13/19 08:56 DC 10/13/19 08:27 200 MLS/HR Meropenem 500 mg/ Sodium Chloride 50 ml @ 100 mls/hr Q6HRS 10/16/19 18:00 10/17/19 05:54 100 MLS/HR Methylprednisolone Sodium Succinate (SOLU-Medrol 125MG VIAL) 125 mg 1X ONCE 10/01/19 06:15 10/01/19 06:16 DC 10/01/19 06:26 125 MG Metoclopramide HCl (Reglan Vial) 10 mg PRN Q3HRS PRN 08/27/19 16:45 09/01/19 04:25 10 MG Metoprolol Tartrate (Lopressor Vial) 5 mg PRN Q6HRS PRN 09/28/19 09:00 10/06/19 10:14 5 MG Metronidazole 100 ml @ 100 mls/hr Q8HRS 08/02/19 10:00 08/09/19 08:10 DC 08/09/19 06:04 100 MLS/HR Micafungin Sodium 100 mg/Dextrose 100 ml @ 100 mls/hr Q24H 09/25/19 11:00 10/13/19 08:56 DC 10/12/19 12:34 100 MLS/HR Midazolam HCl (Versed) 2 mg 1X ONCE 09/25/19 15:00 09/25/19 15:01 DC 09/25/19 15:28 1 MG Midazolam HCl 100 mg/Sodium Chloride 100 ml @ 7 mls/hr CONT PRN 07/16/19 16:00 09/21/19 14:38 DC 07/27/19 15:35 7 MLS/HR Midazolam HCl 50 mg/Sodium Chloride 50 ml @ 0 mls/hr CONT PRN 07/11/19 08:15 07/16/19 15:59 DC 07/14/19 22:39 7 MLS/HR Morphine Sulfate (Morphine Sulfate) 2 mg PRN Q2HR PRN 07/04/19 05:00 07/05/19 14:15 DC 07/05/19 12:26 2 MG Multi-Ingred Cream/Lotion/Oil/ Oint (Artificial Tears Eye Ointment) 1 ramu PRN Q1HR PRN 07/13/19 17:30 09/21/19 14:39 DC 08/01/19 08:19 1 RAMU Naloxone HCl (Narcan) 0.4 mg STK-MED ONCE 09/25/19 14:48 09/25/19 14:48 DC Norepinephrine Bitartrate 8 mg/ Dextrose 258 ml @ 13.332 mls/ hr CONT PRN 09/25/19 06:30 09/25/19 21:46 13.332 MLS/HR Ondansetron HCl (Zofran) 4 mg STK-MED ONCE 08/15/19 10:56 08/15/19 10:57 DC Pantoprazole Sodium (PROTONIX VIAL for IV PUSH) 40 mg DAILYAC 07/04/19 11:30 10/16/19 08:23 40 MG Phenylephrine HCl (PHENYLEPHRINE in 0.9% NACL PF) 1 mg STK-MED ONCE 08/15/19 12:34 08/15/19 12:34 DC Piperacillin Sod/ Tazobactam Sod 3.375 gm/Sodium Chloride 50 ml @ 100 mls/hr Q6HRS 09/14/19 12:00 09/22/19 07:26 DC 09/22/19 06:10 100 MLS/HR Piperacillin Sod/ Tazobactam Sod 4.5 gm/Sodium Chloride 100 ml @ 200 mls/hr 1X ONCE 07/04/19 06:00 07/04/19 06:29 DC 07/04/19 05:44 200 MLS/HR Potassium Chloride 110 meq/ Magnesium Sulfate 20 meq/ Multivitamins 10 ml/Chromium/ Copper/Manganese/ Seleni/Zn 1 ml/ Insulin Human Regular 15 unit/ Total Parenteral Nutrition/Amino Acids/Dextrose/ Fat Emulsion Intravenous 1,800 ml @ 75 mls/hr TPN CONT 09/11/19 22:00 09/12/19 21:59 DC 09/11/19 22:48 75 MLS/HR Potassium Chloride 15 meq/ Bicarbonate Dialysis Soln w/ out KCl 5,007.5 ml @ 1,000 mls/ hr Q5H1M 07/17/19 20:00 07/21/19 13:08 DC 07/20/19 18:14 1,000 MLS/HR Potassium Chloride 20 meq/ Bicarbonate Dialysis Soln w/ out KCl 5,010 ml @ 1,000 mls/hr Q5H1M 07/13/19 16:00 07/17/19 19:59 DC 07/17/19 14:54 1,000 MLS/HR Potassium Chloride 40 meq/ Potassium Acetate 60 meq/Magnesium Sulfate 10 meq/ Multivitamins 10 ml/Chromium/ Copper/Manganese/ Seleni/Zn 1 ml/ Insulin Human Regular 20 unit/ Total Parenteral Nutrition/Amino Acids/Dextrose/ Fat Emulsion Intravenous 1,800 ml @ 75 mls/hr TPN CONT 09/22/19 22:00 09/23/19 21:59 DC 09/23/19 00:03 75 MLS/HR Potassium Chloride 70 meq/ Magnesium Sulfate 20 meq/ Multivitamins 10 ml/Chromium/ Copper/Manganese/ Seleni/Zn 1 ml/ Insulin Human Regular 15 unit/ Total Parenteral Nutrition/Amino Acids/Dextrose/ Fat Emulsion Intravenous 1,800 ml @ 75 mls/hr TPN CONT 09/16/19 22:00 09/17/19 21:59 DC 09/16/19 23:13 75 MLS/HR Potassium Chloride 75 meq/ Magnesium Sulfate 15 meq/ Multivitamins 10 ml/Chromium/ Copper/Manganese/ Seleni/Zn 0.5 ml/ Insulin Human Regular 15 unit/ Total Parenteral Nutrition/Amino Acids/Dextrose/ Fat Emulsion Intravenous 1,920 ml @ 80 mls/hr TPN CONT 08/27/19 22:00 08/28/19 21:59 DC 08/27/19 22:41 80 MLS/HR Potassium Chloride 75 meq/ Magnesium Sulfate 15 meq/Calcium Gluconate 8 meq/ Multivitamins 10 ml/Chromium/ Copper/Manganese/ Seleni/Zn 0.5 ml/ Insulin Human Regular 15 unit/ Total Parenteral Nutrition/Amino Acids/Dextrose/ Fat Emulsion Intravenous 1,920 ml @ 80 mls/hr TPN CONT 08/25/19 22:00 08/26/19 21:59 DC 08/25/19 22:28 80 MLS/HR Potassium Chloride 75 meq/ Magnesium Sulfate 15 meq/Calcium Gluconate 8 meq/ Multivitamins 10 ml/Chromium/ Copper/Manganese/ Seleni/Zn 0.5 ml/ Insulin Human Regular 20 unit/ Total Parenteral Nutrition/Amino Acids/Dextrose/ Fat Emulsion Intravenous 1,920 ml @ 80 mls/hr TPN CONT 08/24/19 22:00 08/25/19 21:59 DC 08/24/19 22:00 80 MLS/HR Potassium Chloride 75 meq/ Magnesium Sulfate 15 meq/Calcium Gluconate 8 meq/ Multivitamins 10 ml/Chromium/ Copper/Manganese/ Seleni/Zn 0.5 ml/ Insulin Human Regular 25 unit/ Total Parenteral Nutrition/Amino Acids/Dextrose/ Fat Emulsion Intravenous 1,920 ml @ 80 mls/hr TPN CONT 08/22/19 22:00 08/23/19 21:59 DC 08/22/19 23:08 80 MLS/HR Potassium Chloride 75 meq/ Magnesium Sulfate 20 meq/Calcium Gluconate 10 meq/ Multivitamins 10 ml/Chromium/ Copper/Manganese/ Seleni/Zn 0.5 ml/ Insulin Human Regular 25 unit/ Total Parenteral Nutrition/Amino Acids/Dextrose/ Fat Emulsion Intravenous 1,920 ml @ 80 mls/hr TPN CONT 08/21/19 22:00 08/22/19 21:59 DC 08/21/19 22:04 80 MLS/HR Potassium Chloride 75 meq/ Magnesium Sulfate 20 meq/Calcium Gluconate 10 meq/ Multivitamins 10 ml/Chromium/ Copper/Manganese/ Seleni/Zn 0.5 ml/ Insulin Human Regular 30 unit/ Total Parenteral Nutrition/Amino Acids/Dextrose/ Fat Emulsion Intravenous 1,920 ml @ 80 mls/hr TPN CONT 08/20/19 22:00 08/21/19 22:00 DC 08/20/19 21:51 80 MLS/HR Potassium Chloride 80 meq/ Magnesium Sulfate 20 meq/ Multivitamins 10 ml/Chromium/ Copper/Manganese/ Seleni/Zn 0.5 ml/ Insulin Human Regular 15 unit/ Total Parenteral Nutrition/Amino Acids/Dextrose/ Fat Emulsion Intravenous 1,920 ml @ 80 mls/hr TPN CONT 08/30/19 22:00 08/31/19 21:59 DC 08/30/19 21:40 80 MLS/HR Potassium Chloride 80 meq/ Magnesium Sulfate 20 meq/ Multivitamins 10 ml/Chromium/ Copper/Manganese/ Seleni/Zn 1 ml/ Insulin Human Regular 15 unit/ Total Parenteral Nutrition/Amino Acids/Dextrose/ Fat Emulsion Intravenous 1,800 ml @ 75 mls/hr TPN CONT 09/18/19 22:00 09/19/19 21:59 DC 09/18/19 21:54 75 MLS/HR Potassium Chloride 90 meq/ Magnesium Sulfate 20 meq/ Multivitamins 10 ml/Chromium/ Copper/Manganese/ Seleni/Zn 1 ml/ Insulin Human Regular 15 unit/ Total Parenteral Nutrition/Amino Acids/Dextrose/ Fat Emulsion Intravenous 1,800 ml @ 75 mls/hr TPN CONT 09/07/19 22:00 09/08/19 21:59 DC 09/07/19 22:28 75 MLS/HR Potassium Chloride 90 meq/ Magnesium Sulfate 20 meq/ Multivitamins 10 ml/Chromium/ Copper/Manganese/ Seleni/Zn 1 ml/ Insulin Human Regular 20 unit/ Total Parenteral Nutrition/Amino Acids/Dextrose/ Fat Emulsion Intravenous 1,800 ml @ 75 mls/hr TPN CONT 09/21/19 22:00 09/22/19 21:59 DC 09/21/19 23:13 75 MLS/HR Potassium Chloride/Water 100 ml @ 100 mls/hr Q1H 10/05/19 08:00 10/05/19 09:59 DC 10/05/19 09:12 100 MLS/HR Potassium Phosphate 20 mmol/ Sodium Chloride 106.6667 ml @ 51.667 m... 1X ONCE 07/13/19 13:00 07/13/19 15:03 DC 07/13/19 12:51 51.667 MLS/HR Potassium Acetate 30 meq/Magnesium Sulfate 14 meq/ Multivitamins 10 ml/Chromium/ Copper/Manganese/ Seleni/Zn 1 ml/ Insulin Human Regular 15 unit/ Sodium Chloride 20 meq/Potassium Chloride 30 meq/ Total Parenteral Nutrition/Amino Acids/Dextrose/ Fat Emulsion Intravenous 1,920 ml @ 80 mls/hr TPN CONT 10/11/19 22:00 10/12/19 21:59 DC 10/11/19 21:46 80 MLS/HR Potassium Acetate 30 meq/Magnesium Sulfate 20 meq/ Calcium Gluconate 10 meq/ Multivitamins 10 ml/Chromium/ Copper/Manganese/ Seleni/Zn 0.5 ml/ Insulin Human Regular 30 unit/ Potassium Chloride 30 meq/ Total Parenteral Nutrition/Amino Acids/Dextrose/ Fat Emulsion Intravenous 1,920 ml @ 80 mls/hr TPN CONT 08/19/19 22:00 08/20/19 21:59 DC 08/19/19 22:34 80 MLS/HR Potassium Acetate 40 meq/Magnesium Sulfate 10 meq/ Multivitamins 10 ml/Chromium/ Copper/Manganese/ Seleni/Zn 1 ml/ Insulin Human Regular 20 unit/ Total Parenteral Nutrition/Amino Acids/Dextrose/ Fat Emulsion Intravenous 1,920 ml @ 80 mls/hr TPN CONT 10/04/19 22:00 10/05/19 21:59 DC 10/04/19 21:32 80 MLS/HR Potassium Acetate 40 meq/Magnesium Sulfate 5 meq/ Multivitamins 10 ml/Chromium/ Copper/Manganese/ Seleni/Zn 1 ml/ Insulin Human Regular 30 unit/ Total Parenteral Nutrition/Amino Acids/Dextrose/ Fat Emulsion Intravenous 1,920 ml @ 80 mls/hr TPN CONT 10/03/19 22:00 10/04/19 19:34 DC 10/03/19 21:54 80 MLS/HR Potassium Acetate 55 meq/Magnesium Sulfate 20 meq/ Calcium Gluconate 10 meq/ Multivitamins 10 ml/Chromium/ Copper/Manganese/ Seleni/Zn 0.5 ml/ Insulin Human Regular 30 unit/ Total Parenteral Nutrition/Amino Acids/Dextrose/ Fat Emulsion Intravenous 1,920 ml @ 80 mls/hr TPN CONT 08/18/19 22:00 08/19/19 21:59 DC 08/19/19 01:00 80 MLS/HR Potassium Acetate 55 meq/Magnesium Sulfate 20 meq/ Calcium Gluconate 10 meq/ Multivitamins 10 ml/Chromium/ Copper/Manganese/ Seleni/Zn 0.5 ml/ Insulin Human Regular 35 unit/ Total Parenteral Nutrition/Amino Acids/Dextrose/ Fat Emulsion Intravenous 1,920 ml @ 80 mls/hr TPN CONT 08/16/19 22:00 08/17/19 21:59 DC 08/16/19 22:02 80 MLS/HR Potassium Acetate 60 meq/Magnesium Sulfate 10 meq/ Multivitamins 10 ml/Chromium/ Copper/Manganese/ Seleni/Zn 1 ml/ Insulin Human Regular 20 unit/ Total Parenteral Nutrition/Amino Acids/Dextrose/ Fat Emulsion Intravenous 1,920 ml @ 80 mls/hr TPN CONT 10/05/19 22:00 10/06/19 21:59 DC 10/05/19 21:55 80 MLS/HR Potassium Acetate 60 meq/Magnesium Sulfate 14 meq/ Multivitamins 10 ml/Chromium/ Copper/Manganese/ Seleni/Zn 1 ml/ Insulin Human Regular 15 unit/ Sodium Chloride 20 meq/Total Parenteral Nutrition/Amino Acids/Dextrose/ Fat Emulsion Intravenous 1,920 ml @ 80 mls/hr TPN CONT 10/10/19 22:00 10/11/19 21:59 DC 10/10/19 21:54 80 MLS/HR Potassium Acetate 60 meq/Magnesium Sulfate 14 meq/ Multivitamins 10 ml/Chromium/ Copper/Manganese/ Seleni/Zn 1 ml/ Insulin Human Regular 15 unit/ Total Parenteral Nutrition/Amino Acids/Dextrose/ Fat Emulsion Intravenous 1,920 ml @ 80 mls/hr TPN CONT 10/09/19 22:00 10/10/19 21:59 DC 10/09/19 22:22 80 MLS/HR Potassium Acetate 60 meq/Magnesium Sulfate 14 meq/ Multivitamins 10 ml/Chromium/ Copper/Manganese/ Seleni/Zn 1 ml/ Insulin Human Regular 20 unit/ Total Parenteral Nutrition/Amino Acids/Dextrose/ Fat Emulsion Intravenous 1,920 ml @ 80 mls/hr TPN CONT 10/06/19 22:00 10/07/19 21:59 DC 10/06/19 22:26 80 MLS/HR Potassium Acetate 60 meq/Magnesium Sulfate 5 meq/ Multivitamins 10 ml/Chromium/ Copper/Manganese/ Seleni/Zn 1 ml/ Insulin Human Regular 30 unit/ Total Parenteral Nutrition/Amino Acids/Dextrose/ Fat Emulsion Intravenous 1,920 ml @ 80 mls/hr TPN CONT 09/24/19 22:00 09/25/19 21:59 DC 09/24/19 21:54 80 MLS/HR Potassium Acetate 65 meq/Magnesium Sulfate 20 meq/ Calcium Gluconate 10 meq/ Multivitamins 10 ml/Chromium/ Copper/Manganese/ Seleni/Zn 0.5 ml/ Insulin Human Regular 30 unit/ Total Parenteral Nutrition/Amino Acids/Dextrose/ Fat Emulsion Intravenous 1,920 ml @ 80 mls/hr TPN CONT 08/17/19 22:00 08/18/19 21:59 DC 08/17/19 22:22 80 MLS/HR Potassium Acetate 80 meq/Magnesium Sulfate 5 meq/ Multivitamins 10 ml/Chromium/ Copper/Manganese/ Seleni/Zn 1 ml/ Insulin Human Regular 20 unit/ Total Parenteral Nutrition/Amino Acids/Dextrose/ Fat Emulsion Intravenous 1,920 ml @ 80 mls/hr TPN CONT 09/23/19 22:00 09/24/19 21:59 DC 09/23/19 21:59 80 MLS/HR Prochlorperazine Edisylate (Compazine) 5 mg PACU PRN PRN 08/15/19 07:00 08/16/19 06:59 DC Propofol 100 ml @ 0 mls/hr CONT PRN 10/01/19 06:00 10/08/19 23:50 2.7 MLS/HR Ringer's Solution 1,000 ml @ 30 mls/hr Q24H 08/15/19 07:00 08/15/19 18:59 DC Rocuronium Continental (Zemuron) 50 mg STK-MED ONCE 08/15/19 10:56 08/15/19 10:57 DC Saliva Substitute (Biotene Moisturizing Mouth) 2 spray PRN Q15MIN PRN 09/08/19 11:00 Sevoflurane (Ultane) 60 ml STK-MED ONCE 08/15/19 12:26 08/15/19 12:27 DC Sodium Bicarbonate 50 meq/Sodium Chloride 1,050 ml @ 75 mls/hr Q14H 07/06/19 07:30 07/11/19 10:28 DC 07/10/19 21:10 75 MLS/HR Sodium Acetate 50 meq/Potassium Acetate 55 meq/ Magnesium Sulfate 20 meq/Calcium Gluconate 10 meq/ Multivitamins 10 ml/Chromium/ Copper/Manganese/ Seleni/Zn 0.5 ml/ Insulin Human Regular 35 unit/ Total Parenteral Nutrition/Amino Acids/Dextrose/ Fat Emulsion Intravenous 1,800 ml @ 75 mls/hr TPN CONT 08/13/19 22:00 08/14/19 21:59 DC 08/13/19 22:03 75 MLS/HR Sodium Bicarbonate (Sodium Bicarb Adult 8.4% Syr) 50 meq 1X ONCE 09/25/19 22:00 09/25/19 22:01 DC 09/25/19 21:47 50 MEQ Sodium Chloride (Normal Saline Flush) 3 ml QSHIFT PRN 08/15/19 13:45 Sodium Chloride 80 meq/Potassium Chloride 30 meq/ Potassium Acetate 30 meq/Magnesium Sulfate 14 meq/ Multivitamins 10 ml/Chromium/ Copper/Manganese/ Seleni/Zn 1 ml/ Insulin Human Regular 15 unit/ Total Parenteral Nutrition/Amino Acids/Dextrose/ Fat Emulsion Intravenous 1,920 ml @ 80 mls/hr TPN CONT 10/16/19 22:00 10/17/19 21:59 10/16/19 22:06 80 MLS/HR Sodium Chloride 90 meq/Calcium Gluconate 10 meq/ Multivitamins 10 ml/Chromium/ Copper/Manganese/ Seleni/Zn 0.5 ml/ Total Parenteral Nutrition/Amino Acids/Dextrose/ Fat Emulsion Intravenous 1,512 ml @ 63 mls/hr TPN CONT 07/06/19 22:00 07/07/19 21:59 DC 07/06/19 22:06 63 MLS/HR Sodium Chloride 90 meq/Calcium Gluconate 10 meq/ Multivitamins 10 ml/Chromium/ Copper/Manganese/ Seleni/Zn 1 ml/ Total Parenteral Nutrition/Amino Acids/Dextrose/ Fat Emulsion Intravenous 55.005 ml @ 2.292 mls/hr TPN CONT 07/06/19 22:00 07/06/19 12:33 DC Sodium Chloride 90 meq/Magnesium Sulfate 10 meq/ Calcium Gluconate 20 meq/ Multivitamins 10 ml/Chromium/ Copper/Manganese/ Seleni/Zn 0.5 ml/ Total Parenteral Nutrition/Amino Acids/Dextrose/ Fat Emulsion Intravenous 1,512 ml @ 63 mls/hr TPN CONT 07/07/19 22:00 07/08/19 21:59 DC 07/07/19 22:25 63 MLS/HR Sodium Chloride 90 meq/Magnesium Sulfate 12 meq/ Calcium Gluconate 15 meq/ Multivitamins 10 ml/Chromium/ Copper/Manganese/ Seleni/Zn 0.5 ml/ Insulin Human Regular 25 unit/ Total Parenteral Nutrition/Amino Acids/Dextrose/ Fat Emulsion Intravenous 1,400 ml @ 58.333 mls/ hr TPN CONT 07/27/19 22:00 07/28/19 21:59 DC 07/27/19 21:41 58.333 MLS/HR Sodium Chloride 90 meq/Potassium Chloride 15 meq/ Magnesium Sulfate 12 meq/Calcium Gluconate 15 meq/ Multivitamins 10 ml/Chromium/ Copper/Manganese/ Seleni/Zn 0.5 ml/ Insulin Human Regular 25 unit/ Total Parenteral Nutrition/Amino Acids/Dextrose/ Fat Emulsion Intravenous 1,400 ml @ 58.333 mls/ hr TPN CONT 07/26/19 22:00 07/27/19 21:59 DC 07/26/19 22:13 58.333 MLS/HR Sodium Chloride 90 meq/Potassium Chloride 15 meq/ Potassium Phosphate 10 mmol/ Magnesium Sulfate 8 meq/Calcium Gluconate 15 meq/ Multivitamins 10 ml/Chromium/ Copper/Manganese/ Seleni/Zn 0.5 ml/ Insulin Human Regular 25 unit/ Total Parenteral Nutrition/Amino Acids/Dextrose/ Fat Emulsion Intravenous 1,400 ml @ 58.333 mls/ hr TPN CONT 07/24/19 22:00 07/25/19 21:59 DC 07/24/19 21:20 58.333 MLS/HR Sodium Chloride 90 meq/Potassium Chloride 15 meq/ Potassium Phosphate 10 mmol/ Magnesium Sulfate 10 meq/Calcium Gluconate 20 meq/ Multivitamins 10 ml/Chromium/ Copper/Manganese/ Seleni/Zn 0.5 ml/ Total Parenteral Nutrition/Amino Acids/Dextrose/ Fat Emulsion Intravenous 1,400 ml @ 58.333 mls/ hr TPN CONT 07/11/19 22:00 07/12/19 21:59 DC 07/11/19 21:42 58.333 MLS/HR Sodium Chloride 90 meq/Potassium Chloride 15 meq/ Potassium Phosphate 10 mmol/ Magnesium Sulfate 12 meq/Calcium Gluconate 15 meq/ Multivitamins 10 ml/Chromium/ Copper/Manganese/ Seleni/Zn 0.5 ml/ Insulin Human Regular 25 unit/ Total Parenteral Nutrition/Amino Acids/Dextrose/ Fat Emulsion Intravenous 1,400 ml @ 58.333 mls/ hr TPN CONT 07/25/19 22:00 07/26/19 21:59 DC 07/25/19 22:24 58.333 MLS/HR Sodium Chloride 90 meq/Potassium Chloride 15 meq/ Potassium Phosphate 15 mmol/ Magnesium Sulfate 10 meq/Calcium Gluconate 15 meq/ Multivitamins 10 ml/Chromium/ Copper/Manganese/ Seleni/Zn 0.5 ml/ Total Parenteral Nutrition/Amino Acids/Dextrose/ Fat Emulsion Intravenous 1,400 ml @ 58.333 mls/ hr TPN CONT 07/12/19 22:00 07/13/19 21:59 DC 07/12/19 22:17 58.333 MLS/HR Sodium Chloride 90 meq/Potassium Chloride 15 meq/ Potassium Phosphate 15 mmol/ Magnesium Sulfate 10 meq/Calcium Gluconate 20 meq/ Multivitamins 10 ml/Chromium/ Copper/Manganese/ Seleni/Zn 0.5 ml/ Total Parenteral Nutrition/Amino Acids/Dextrose/ Fat Emulsion Intravenous 1,200 ml @ 50 mls/hr TPN CONT 07/10/19 22:00 07/10/19 14:17 DC Sodium Chloride 90 meq/Potassium Chloride 15 meq/ Potassium Phosphate 18 mmol/ Magnesium Sulfate 8 meq/Calcium Gluconate 15 meq/ Multivitamins 10 ml/Chromium/ Copper/Manganese/ Seleni/Zn 0.5 ml/ Insulin Human Regular 10 unit/ Total Parenteral Nutrition/Amino Acids/Dextrose/ Fat Emulsion Intravenous 1,400 ml @ 58.333 mls/ hr TPN CONT 07/15/19 22:00 07/16/19 21:59 DC 07/15/19 21:43 58.333 MLS/HR Sodium Chloride 90 meq/Potassium Chloride 15 meq/ Potassium Phosphate 18 mmol/ Magnesium Sulfate 8 meq/Calcium Gluconate 15 meq/ Multivitamins 10 ml/Chromium/ Copper/Manganese/ Seleni/Zn 0.5 ml/ Insulin Human Regular 15 unit/ Total Parenteral Nutrition/Amino Acids/Dextrose/ Fat Emulsion Intravenous 1,400 ml @ 58.333 mls/ hr TPN CONT 07/18/19 22:00 07/19/19 21:59 DC 07/18/19 21:47 58.333 MLS/HR Sodium Chloride 90 meq/Potassium Chloride 15 meq/ Potassium Phosphate 18 mmol/ Magnesium Sulfate 8 meq/Calcium Gluconate 15 meq/ Multivitamins 10 ml/Chromium/ Copper/Manganese/ Seleni/Zn 0.5 ml/ Insulin Human Regular 20 unit/ Total Parenteral Nutrition/Amino Acids/Dextrose/ Fat Emulsion Intravenous 1,400 ml @ 58.333 mls/ hr TPN CONT 07/21/19 22:00 07/22/19 21:59 DC 07/21/19 22:45 58.333 MLS/HR Sodium Chloride 90 meq/Potassium Chloride 15 meq/ Potassium Phosphate 18 mmol/ Magnesium Sulfate 8 meq/Calcium Gluconate 15 meq/ Multivitamins 10 ml/Chromium/ Copper/Manganese/ Seleni/Zn 0.5 ml/ Total Parenteral Nutrition/Amino Acids/Dextrose/ Fat Emulsion Intravenous 1,400 ml @ 58.333 mls/ hr TPN CONT 07/14/19 22:00 07/15/19 21:59 DC 07/14/19 22:00 58.333 MLS/HR Sodium Chloride 90 meq/Potassium Phosphate 15 mmol/ Magnesium Sulfate 12 meq/Calcium Gluconate 15 meq/ Multivitamins 10 ml/Chromium/ Copper/Manganese/ Seleni/Zn 0.5 ml/ Insulin Human Regular 30 unit/ Total Parenteral Nutrition/Amino Acids/Dextrose/ Fat Emulsion Intravenous 1,400 ml @ 58.333 mls/ hr TPN CONT 07/29/19 22:00 07/30/19 21:59 DC 07/29/19 21:49 58.333 MLS/HR Sodium Chloride 90 meq/Potassium Phosphate 15 mmol/ Magnesium Sulfate 12 meq/Calcium Gluconate 15 meq/ Multivitamins 10 ml/Chromium/ Copper/Manganese/ Seleni/Zn 0.5 ml/ Insulin Human Regular 40 unit/ Total Parenteral Nutrition/Amino Acids/Dextrose/ Fat Emulsion Intravenous 1,400 ml @ 58.333 mls/ hr TPN CONT 07/30/19 22:00 07/31/19 21:59 DC 07/30/19 21:21 58.333 MLS/HR Sodium Chloride 90 meq/Potassium Phosphate 19 mmol/ Magnesium Sulfate 12 meq/Calcium Gluconate 15 meq/ Multivitamins 10 ml/Chromium/ Copper/Manganese/ Seleni/Zn 0.5 ml/ Insulin Human Regular 40 unit/ Total Parenteral Nutrition/Amino Acids/Dextrose/ Fat Emulsion Intravenous 1,400 ml @ 58.333 mls/ hr TPN CONT 07/31/19 22:00 08/01/19 21:59 DC 07/31/19 21:54 58.333 MLS/HR Sodium Chloride 90 meq/Potassium Phosphate 5 mmol/ Magnesium Sulfate 12 meq/Calcium Gluconate 15 meq/ Multivitamins 10 ml/Chromium/ Copper/Manganese/ Seleni/Zn 0.5 ml/ Insulin Human Regular 30 unit/ Total Parenteral Nutrition/Amino Acids/Dextrose/ Fat Emulsion Intravenous 1,400 ml @ 58.333 mls/ hr TPN CONT 07/28/19 22:00 07/29/19 21:59 DC 07/28/19 22:08 58.333 MLS/HR Sodium Chloride 100 meq/Potassium Chloride 40 meq/ Magnesium Sulfate 15 meq/Calcium Gluconate 15 meq/ Multivitamins 10 ml/Chromium/ Copper/Manganese/ Seleni/Zn 0.5 ml/ Insulin Human Regular 35 unit/ Total Parenteral Nutrition/Amino Acids/Dextrose/ Fat Emulsion Intravenous 1,400 ml @ 58.333 mls/ hr TPN CONT 08/07/19 22:00 08/08/19 21:59 DC 08/07/19 22:46 58.333 MLS/HR Sodium Chloride 100 meq/Potassium Chloride 40 meq/ Magnesium Sulfate 20 meq/Calcium Gluconate 10 meq/ Multivitamins 10 ml/Chromium/ Copper/Manganese/ Seleni/Zn 0.5 ml/ Insulin Human Regular 35 unit/ Total Parenteral Nutrition/Amino Acids/Dextrose/ Fat Emulsion Intravenous 1,400 ml @ 58.333 mls/ hr TPN CONT 08/11/19 22:00 08/12/19 21:59 DC 08/12/19 00:06 58.333 MLS/HR Sodium Chloride 100 meq/Potassium Chloride 40 meq/ Magnesium Sulfate 20 meq/Calcium Gluconate 15 meq/ Multivitamins 10 ml/Chromium/ Copper/Manganese/ Seleni/Zn 0.5 ml/ Insulin Human Regular 35 unit/ Total Parenteral Nutrition/Amino Acids/Dextrose/ Fat Emulsion Intravenous 1,400 ml @ 58.333 mls/ hr TPN CONT 08/10/19 22:00 08/11/19 21:59 DC 08/10/19 22:27 58.333 MLS/HR Sodium Chloride 100 meq/Potassium Phosphate 10 mmol/ Magnesium Sulfate 12 meq/Calcium Gluconate 15 meq/ Multivitamins 10 ml/Chromium/ Copper/Manganese/ Seleni/Zn 0.5 ml/ Insulin Human Regular 35 unit/ Potassium Chloride 20 meq/ Total Parenteral Nutrition/Amino Acids/Dextrose/ Fat Emulsion Intravenous 1,400 ml @ 58.333 mls/ hr TPN CONT 08/04/19 22:00 08/05/19 21:59 DC 08/04/19 22:10 58.333 MLS/HR Sodium Chloride 100 meq/Potassium Phosphate 19 mmol/ Magnesium Sulfate 12 meq/Calcium Gluconate 15 meq/ Multivitamins 10 ml/Chromium/ Copper/Manganese/ Seleni/Zn 0.5 ml/ Insulin Human Regular 40 unit/ Potassium Chloride 20 meq/ Total Parenteral Nutrition/Amino Acids/Dextrose/ Fat Emulsion Intravenous 1,400 ml @ 58.333 mls/ hr TPN CONT 08/03/19 22:00 08/04/19 21:59 DC 08/03/19 21:20 58.333 MLS/HR Sodium Chloride 100 meq/Potassium Phosphate 5 mmol/ Magnesium Sulfate 12 meq/Calcium Gluconate 15 meq/ Multivitamins 10 ml/Chromium/ Copper/Manganese/ Seleni/Zn 0.5 ml/ Insulin Human Regular 35 unit/ Potassium Chloride 20 meq/ Total Parenteral Nutrition/Amino Acids/Dextrose/ Fat Emulsion Intravenous 1,400 ml @ 58.333 mls/ hr TPN CONT 08/05/19 22:00 08/06/19 21:59 DC 08/05/19 22:59 58.333 MLS/HR Succinylcholine Chloride (Anectine) 120 mg 1X ONCE 07/11/19 08:30 07/11/19 08:31 DC 07/11/19 08:34 120 MG Vecuronium Continental (Norcuron Bolus) 6 mg PRN Q6HRS PRN 08/25/19 19:15 08/25/19 19:35 DC Labs: Lab Laboratory Tests Test 10/16/19 11:52 10/17/19 00:09 10/17/19 05:53 10/17/19 06:00 Glucose (Fingerstick) 128 mg/dL (70-99) 123 mg/dL (70-99) 125 mg/dL (70-99) Sodium Level 137 mmol/L (136-145) Potassium Level 4.4 mmol/L (3.5-5.1) Chloride Level 101 mmol/L (98-107) Carbon Dioxide Level 35 mmol/L (21-32) Anion Gap 1 (6-14) Blood Urea Nitrogen 16 mg/dL (7-20) Creatinine 0.7 mg/dL (0.6-1.0) Estimated GFR (Cockcroft-Gault) 88.9 Glucose Level 129 mg/dL (70-99) Calcium Level 10.7 mg/dL (8.5-10.1) Micro NEG ALEXANDRA 56 PSEUDOMONAS AERUGINOSA ANTIBIOTIC RESULT INTERPRETATION AMIKACIN <=16 S AZTREONAM >16 R CEFTAZIDIME >16 R CIPROFLOXACIN <=0.25 S CEFEPIME 16 I GENTAMICIN <=2 S LEVOFLOXACIN <=0.5 S CONTINUED ON NEXT PAGE --- --------- RUN DATE: 09/28/19 [facility] *LIVE* PAGE 2 RUN TIME: 1121 Specimen Inquiry SPEC: [id number] PATIENT: SCOTT CUELLAR [id number] (Continued) Procedure Result ANTIMICROBIAL SUSCEPTIBILITY Preliminary (continued) MEROPENEM <=1 S PIPERACILLIN/TAZOBACTAM 64 S TOBRAMYCIN <=2 S Unless otherwise specified, Testing Performed by: [address] [place] [address] For Inquires, the Physician may contact the Microbiology department at [phone] Objective: Assessment: Patient with prolonged hospitalization more than 3 months Multiple medical problems Multiple surgical procedures Fever intermittently Acute pancreatitis with persistent necrosis CT a/p 07/27 Increased ascites. 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 Sequela of pancreatitis with extensive pseudocysts again demonstrated, the right-sided collections are slightly larger since the prior exam, the left-sided collections are stable. 09/24 fluid cult PSAE (MDRO),yeast; treated Cholelithiasis with thickening of the gallbladder wall. Leucocytosis JUANA,Hyperkalemia, Metabolic acidosis off dialysis Acute hypoxic resp failure ,bilateral pleural effusion and atelectasis hypocalcemia Prediabetes HTN s/p trach Pleural effusion status post CTS left side Abdominal fluid culture MDRO Pseudomonas, yeast Plan: Plan of Care cont dapto and merrem ( 10/15) Monitor labs/cults General surgery following,plans are for surgery tomorrow Monitor drain output Maintain aspiration precaution Supportive care Contact isolation for CRE/MDRO Discussed with nursing staff YUNIOR JONES MD Oct 17, 2019 08:56
[2019-10-17] MEDS: PANTOPRAZOLE IV PUSH 40 MG VIAL. IVP SCH (09:03)
--- NOTE | 2019-10-17 09:07 | PDOC ---
PROGRESS NOTES Chief Complaint Chief Complaint History of Present Illness 48yo F w/ PMHx HTN, prediabetes who presented the emergency room complaints of abdominal pain. Patient described off and on 3 days. She states is constant, described as a squeezing sensation in a band-like distribution. + nausea, vomiting. She denies any fever or diarrhea. Patient denies any abdominal surgical procedures. She stateed is worse with movements, car ride. Pain initially was upper abdomen however now pretty much generalized. Last bowel movement was 07/03/2019. Nothing makes her pain better. Patient denies any shortness of breath. She does state the pain moves into her chest. Denies any headache or visual changes. Lipase 52988, AST 401, ALT 249, Bilirubin 1.4. CT abdomen confirms pancreatic inflammation, peripancreatic fluid and inflammatory changes around the pancreas consistent with pancreatitis. Cholelithiasis and 1.4cm uterine fibroid as well as possible left salpingitis. Admitted for further care Gallstone pancreatitis with necrosis. -CT A/P 09/23 showed multiple pseudocysts, slight larger on the right. s/p drains x , 09/24. + PSAE (MDRO-R Cefepime, Zosyn ALEXANDRA < 64) and yeast, -s/p drain 08/14. C. parapsilosis. s/p drain 08/23 + yeast & high amylase; s/p additional drain on 08/25. Drains removed. Ascites s/p paracentesis 08/02 & 08/23. C. parapsilosis JUANA. off HD. Impression and plan: Acute hypoxic Respiratory failure required mechanical ventilation Tracheostomy bilateral pleural effusions/pulm edema s/p Throacentesis on 10/03/2019 Severe Acute gallstone pancreatitis (not a surgical candidate at this time) with necrosis Acute kidney failure now requiring dialysis Gallstones (Calculus of gallbladder with acute cholecystitis without obstruction) HTN Intractable pain Intractable nausea Covid 19 negative. Acute on chronic anemia EEG: No seizure activityFever - better currently - intermittent could be from underlying pancreatitis blood cults 08/21 - neg so far ? Ileus with vomiting Abd distention - U/S and CT reviewed s/p 0.4 L of opaque, debris-containing ascites was removed 08/23 Acute pancreatitis with persistent necrosis Gallstone pancreatitis with necrosis. -CT A/P 09/23 showed multiple pseudocysts, slight larger on the right. s/p drains x 3, 09/24. + PSAE (MDRO-R Cefepime, Zosyn ALEXANDRA < 64) and yeast, -s/p drain 08/14. C. parapsilosis. s/p drain 08/23 + yeast & high amylase; s/p additional drain on 08/25. Drains removed. Ascites s/p paracentesis 08/02 & 08/23. C. parapsilosis JUANA. off HD. A large fluid collection in the pancreatic bed has slightly decreased in size, described below, the pancreas itself is difficult to visualize, which could be due to necrosis or obscuration of pancreatic parenchyma from the surrounding fluid collection.10/02 - 08/14 status post KAYLIN drain placement + C paropsilosis. s/p additional drains 08/25 Anemia - S/p PRBCs Cholelithiasis with thickening of the gallbladder wall. Leucocytosis improving JUANA, hyperkalemia, Metabolic acidosis off dialysis hypocalcemia Prediabetes HTN s/p trach ESRD on HD Hyperglycemia severe protein-caloric malnutrition Moderate to large left pleural effusion with atelectasis and collapse of most of the left lower lobe, stable FEN - albumin, NS at 80 cc/hr, TPN will start Mucomyst for secretions Off antibiotics PPX - SCDs, off lovenox currently, high risk for thrombosis but in light of her recent anemia and need for transfusion the risks do not outweigh benefits at this time. will continue to evaluate on a daily basis FULL CODE Dispo - ICU, critically ill Poor prognosis 37 MIN CC TIME History of Present Illness History of Present Illness 09/25: IR placed drain on 09/24. 4u PRBC after Hb drop. Hb 8.8 today. Off Levophed this morning. T-max 100.3. Much more lethargic today. CXR with left sided diffuse infiltrates. 09/26: Tachycardic overnight into the 140s. NGT clamped. On BIPAP currently. Drains with serosanguinous discharge. WBC 8, Tmax 99.6F. 09/27: Seen on [facility] shield in ICU. Hypertensive and tachycardic. Labs stable. blood stained drainage from drains. Afebrile. 09/28: Seen on [facility] shield in ICU. She is a bit confused, drowsy, but when sitting up is conversational and confusion somewhat clears. She is asking for more pain medication. Stable drains, still very tachy.Na 147 09/29: Patient vomited overnight. Aspirated. Tried to pull her trach out, she was told she would without her trach, she said "I know, I just want to go home". Hb 7.6. Afebrile, still very tachycardic. 1055ml out of right sided KAYLIN drain 09/30: Overnight hypoxic, on BIPAP. CXR with left sided white out lung. Sig nificant mucous plug suctioned by RT with improvement in her ABG after 2 hours this morning. Not really active, tired, lethargic. 890ml out of drains past 24 hours. On vent. D/w daughter bedside. 10/01: Still on vent overnight with copious pulmonary drainage on suctioning. Labs stable, UOP stable 1L. Drain output still significant with 1505mL. She has shown her phone password [phone] and made it clear she does not want her daughters to access her phone at this time. 6:15: Patient quite frail, she has had such a lengthy hospital stay that she is certainly depressed and as documented 3 days ago is wanting to go home. Most likely patient is also tired of being hospitalized with an end point no where in sight. Reassurance and encouragement provided during my visit. Plans for thoracentesis later in the day 10/03: No acute events reported overnight, case discussed with nursing staff patient in no acute distress, complaints of the abdomimal pain during my visit, patient is quite depressed, reassurance has been provided, discussed with nursing staff at bedside, replace electrolytes 10/04 off vent / on TS , no distress 10/16 fever overnight, blood cult, back on iv merem Patient seen and examined ICU BED plan OR 10/17 for necrosectomy, cholecystectomy and feeding tube placement. [id number] prognosis Sputum from 09/30 - growing PSA - may be colonization I to Meropenem Continue meropenem, has MDRP PSAE September 24 from abd bleeding from Sx. site RLQ and firmness)stable oncology consulted Cholelithiasis. Mild thickened appearance of the gallbladder wall. sono 10/12 Mild right hydronephrosis.Fluid collection identified anterior to the pancreas. 10/14/2019 Patient having trouble with secretions this morning, no other complaints, discussed with surgical CIGARETTE FILTER INSPECTOR. Plans for OR on Thursday. No fever above 99.9 overnight, remains tachycardic, medications reviewed. 10/15/2019 Patient with thick secretions, no other acute events reported overnight. Patient seems to be quite anxious, I have tried to provide reassurance during my encounter regarding her upcoming surgical procedure. Patient seems to be quite anxious and seems to experience panic attacks when she first wakes up thinking that is the day of surgery. At the present time she seems to be medically optimized for planned surgery, discussed with nursing staff at bedside 10/17/2019 Patient seems to be hallucinating and having probably memories from her former life prior to this prolonged hospital stay which is 3 months plus in length. Immediate plans are for surgical intervention on Thursday which will consist of a Whipple procedure. At the present time the patient remains critically stable her prognosis is quite guarded at best. fever last night hallucinations continues to have chest tube in multiple abdominal drains as well. All these are probable source of infection plan OR 10/17 for necrosectomy, cholecystectomy and feeding tube placement. 34 min cc time Date: Aug 15, 2019 Pre-Op Diagnosis: Necrotizing pancreatitis Post-Op Diagnosis: same Procedure Performed: laparoscopic exploration Surgeon: Renzo Servin Asst: Dr. Arturo Harris Anesthesia Type: GETA plus local Blood Loss: 50 Specimans Obtained: cultures, debris Findings: 1000 cc ascites suctioned off, cultures sent, diffuse debris, obliteration of surgical planes preventing any meaningful exploration 09/19/2019 Patient seen and examined in the ICU She appears extremely ill She is tachypneic at 35 respirations per minute and tachycardic at 132 bpm She is extremely encephalopathic and shaky She appears clammy Chart reviewed Discussed with RN Prognosis extremely guarded at best 09/18/2019 Patient still in ICU Resting with no apparent distress Chart reviewed 09/17/2019 Patient seen and examined in the ICU She is wiping her face with a cough Discussed with RN Chart reviewed We hope to get her out of the ICU later today if possible 09/16/2019 Patient seen and examined in the ICU once again She is back on NG suction On IV Zosyn Has IV TPN Sedated with Precedex but anxious still Appears somewhat clammy and pale Chart reviewed Discussed with RN She remains critically ill BRIEF OPERATIVE NOTE Pre-Op Diagnosis Pancreatitis with pseudocysts, suspected infection Post-Op Diagnosis same Procedure Performed CT abdominal Drains x 3 Surgeon Tesfaye Anesthesia Type: Conscious Sedation Findings 3 abdominal drains, 14F, with turbid pancreatic fluid and necrotic debris in each. Complications No immediate 08/26: Patient today somewhat restless and having bilious secretions from ET tube, imaging studies ordered, discussed with exchange underwriting consultant. Pretty poor prognosis, hopefully is not a fistula, poor surgical candidate. 08/27: Imaging with no acute events, she seems more stable today compared to yesterday. Encouraged as much activity as possible patient at high risk for severe depression. Vitals Vitals Vital Signs Date Time Temp Pulse Resp B/P (MAP) Pulse Ox O2 Delivery O2 Flow Rate FiO2 10/17/19 08:33 100 Tracheal Collar 8.0 10/17/19 08:00 98.0 119 24 113/79 (90) 98.0 Physical Exam Physical Exam GENERAL: Patient alert awake comfortable HEENT: Anicteric, no thrush, NG tube in place NECK: Tracheostomy LUNGS: Diminished aeration bases, no accessory muscle use - CT on left HEART: S1, S2,regular ABDOMEN: Mild distention, bowel sounds present, soft, grimaces to palpation, drains x 3 : Lind ( 09/24) EXTREMITIES: + edema BLE SKIN: no signs of gen rash LUE-PICC without signs of complications General: Alert, Cooperative, No acute distress Heart: Regular rate (SR/ST), Other (distant heart sounds) Lungs: Other (diminshed in bases) Abdomen: Soft, No tenderness, Other (drains with pancreatic necrosis) Extremities: No cyanosis, Other (3+ bilateral LE pitting edema) Skin: No rashes, No significant lesion Labs LABS Laboratory Tests Test 10/16/19 11:52 10/17/19 00:09 10/17/19 05:53 10/17/19 06:00 Glucose (Fingerstick) 128 mg/dL (70-99) 123 mg/dL (70-99) 125 mg/dL (70-99) Sodium Level 137 mmol/L (136-145) Potassium Level 4.4 mmol/L (3.5-5.1) Chloride Level 101 mmol/L (98-107) Carbon Dioxide Level 35 mmol/L (21-32) Anion Gap 1 (6-14) Blood Urea Nitrogen 16 mg/dL (7-20) Creatinine 0.7 mg/dL (0.6-1.0) Estimated GFR (Cockcroft-Gault) 88.9 Glucose Level 129 mg/dL (70-99) Calcium Level 10.7 mg/dL (8.5-10.1) Assessment and Plan Assessmemt and Plan Problems Medical Problems: (1) Acute pancreatitis Status: Acute (2) Cholelithiasis Status: Acute Comment Review of Relevant I have reviewed the following items kolby (where applicable) has been applied. Labs Laboratory Tests Test 10/15/19 12:15 10/15/19 17:30 10/16/19 00:30 10/16/19 06:06 O2 Saturation 95 % (92-99) Arterial Blood pH 7.41 (7.35-7.45) Arterial Blood pCO2 at Patient Temp 54 mmHg (35-46) Arterial Blood pO2 at Patient Temp 79 mmHg (75-108) Arterial Blood HCO3 34 mmol/L (21-28) Arterial Blood Base Excess 8 mmol/L (-3-3) FiO2 33 Glucose (Fingerstick) 135 mg/dL (70-99) 121 mg/dL (70-99) 128 mg/dL (70-99) Test 10/16/19 08:15 10/16/19 08:45 10/16/19 11:52 10/17/19 00:09 White Blood Count 12.4 x10^3/uL (4.0-11.0) Red Blood Count 3.06 x10^6/uL (3.50-5.40) Hemoglobin 8.5 g/dL (12.0-15.5) Hematocrit 26.0 % (36.0-47.0) Mean Corpuscular Volume 85 fL (79-100) Mean Corpuscular Hemoglobin 28 pg (25-35) Mean Corpuscular Hemoglobin Concent 33 g/dL (31-37) Red Cell Distribution Width 17.7 % (11.5-14.5) Platelet Count 394 x10^3/uL (140-400) Neutrophils (%) (Auto) 78 % (31-73) Lymphocytes (%) (Auto) 12 % (24-48) Monocytes (%) (Auto) 8 % (0-9) Eosinophils (%) (Auto) 2 % (0-3) Basophils (%) (Auto) 0 % (0-3) Neutrophils # (Auto) 9.7 x10^3/uL (1.8-7.7) Lymphocytes # (Auto) 1.4 x10^3/uL (1.0-4.8) Monocytes # (Auto) 1.0 x10^3/uL (0.0-1.1) Eosinophils # (Auto) 0.2 x10^3/uL (0.0-0.7) Basophils # (Auto) 0.0 x10^3/uL (0.0-0.2) Sodium Level 137 mmol/L (136-145) Potassium Level 4.5 mmol/L (3.5-5.1) Chloride Level 101 mmol/L (98-107) Carbon Dioxide Level 35 mmol/L (21-32) Anion Gap 1 (6-14) Blood Urea Nitrogen 16 mg/dL (7-20) Creatinine 0.6 mg/dL (0.6-1.0) Estimated GFR (Cockcroft-Gault) 106.3 Glucose Level 129 mg/dL (70-99) Calcium Level 10.5 mg/dL (8.5-10.1) Magnesium Level 2.0 mg/dL (1.8-2.4) O2 Saturation 97 % (92-99) Arterial Blood pH 7.41 (7.35-7.45) Arterial Blood pCO2 at Patient Temp 55 mmHg (35-46) Arterial Blood pO2 at Patient Temp 108 mmHg (75-108) Arterial Blood HCO3 34 mmol/L (21-28) Arterial Blood Base Excess 8 mmol/L (-3-3) FiO2 33 Glucose (Fingerstick) 128 mg/dL (70-99) 123 mg/dL (70-99) Test 10/17/19 05:53 10/17/19 06:00 Glucose (Fingerstick) 125 mg/dL (70-99) Sodium Level 137 mmol/L (136-145) Potassium Level 4.4 mmol/L (3.5-5.1) Chloride Level 101 mmol/L (98-107) Carbon Dioxide Level 35 mmol/L (21-32) Anion Gap 1 (6-14) Blood Urea Nitrogen 16 mg/dL (7-20) Creatinine 0.7 mg/dL (0.6-1.0) Estimated GFR (Cockcroft-Gault) 88.9 Glucose Level 129 mg/dL (70-99) Calcium Level 10.7 mg/dL (8.5-10.1) Laboratory Tests Test 10/16/19 11:52 10/17/19 00:09 10/17/19 05:53 10/17/19 06:00 Glucose (Fingerstick) 128 mg/dL (70-99) 123 mg/dL (70-99) 125 mg/dL (70-99) Sodium Level 137 mmol/L (136-145) Potassium Level 4.4 mmol/L (3.5-5.1) Chloride Level 101 mmol/L (98-107) Carbon Dioxide Level 35 mmol/L (21-32) Anion Gap 1 (6-14) Blood Urea Nitrogen 16 mg/dL (7-20) Creatinine 0.7 mg/dL (0.6-1.0) Estimated GFR (Cockcroft-Gault) 88.9 Glucose Level 129 mg/dL (70-99) Calcium Level 10.7 mg/dL (8.5-10.1) Microbiology 10/06/19 Blood Culture - Final, Complete NO GROWTH AFTER 5 DAYS 10/03/19 Gram Stain - Final, Complete 10/03/19 Aerobic and Anaerobic Culture - Final, Complete 10/01/19 Gram Stain Evaluation - Final, Complete 10/01/19 Respiratory Culture - Final, Complete 10/01/19 Antimicrobic Susceptibility - Final, Complete 09/25/19 Urine Culture - Final, Complete 09/17/19 Gram Stain - Final, Complete 09/17/19 Aerobic Culture - Final, Complete Medications Current Medications Sodium Chloride 1,000 ml @ 1,000 mls/hr Q1H IV Last administered on 07/04/19at 03:00; Start 07/04/19 at 03:00; Stop 07/04/19 at 03:59; Status DC Ondansetron HCl (Zofran) 4 mg 1X ONCE IVP Last administered on 07/04/19at 03:27; Start 07/04/19 at 03:00; Stop 07/04/19 at 03:01; Status DC Morphine Sulfate (Morphine Sulfate) 4 mg 1X ONCE IV ; Start 07/04/19 at 03:00; Stop 07/04/19 at 03:01; Status Cancel Ketorolac Tromethamine (Toradol 30mg Vial) 30 mg 1X ONCE IV Last administered on 07/04/19at 02:54; Start 07/04/19 at 03:00; Stop 07/04/19 at 03:01; Status DC Fentanyl Citrate (Fentanyl 2ml Vial) 25 mcg 1X ONCE IVP Last administered on 07/04/19at 03:23; Start 07/04/19 at 03:30; Stop 07/04/19 at 03:31; Status DC Fentanyl Citrate (Fentanyl 2ml Vial) 100 mcg STK-MED ONCE .ROUTE ; Start 07/04/19 at 03:18; Stop 07/04/19 at 03:18; Status DC Iohexol (Omnipaque 350 Mg/ml) 90 ml 1X ONCE IV Last administered on 07/04/19at 03:25; Start 07/04/19 at 03:30; Stop 07/04/19 at 03:31; Status DC Info (CONTRAST GIVEN -- Rx MONITORING) 1 each PRN DAILY PRN MC SEE COMMENTS; Start 07/04/19 at 03:30; Stop 07/06/19 at 03:29; Status DC Hydromorphone HCl (Dilaudid) 0.5 mg 1X ONCE IV Last administered on 07/04/19at 03:55; Start 07/04/19 at 04:30; Stop 07/04/19 at 04:32; Status DC Ondansetron HCl (Zofran) 4 mg PRN Q8HRS PRN IV NAUSEA/VOMITING 1ST CHOICE; Start 07/04/19 at 05:00; Stop 07/04/19 at 09:27; Status DC Morphine Sulfate (Morphine Sulfate) 2 mg PRN Q2HR PRN IV SEVERE PAIN 7-10 Last administered on 07/05/19at 12:26; Start 07/04/19 at 05:00; Stop 07/05/19 at 14:15; Status DC Sodium Chloride 1,000 ml @ 125 mls/hr Q8H IV Last administered on 07/04/19at 20:56; Start 07/04/19 at 05:00; Stop 07/05/19 at 04:59; Status DC Hydromorphone HCl (Dilaudid) 0.5 mg PRN Q3HRS PRN IV SEVERE PAIN 7-10 Last administered on 07/05/19at 10:06; Start 07/04/19 at 05:00; Stop 07/05/19 at 12:01; Status DC Piperacillin Sod/ Tazobactam Sod 4.5 gm/Sodium Chloride 100 ml @ 200 mls/hr 1X ONCE IV Last administered on 07/04/19at 05:44; Start 07/04/19 at 06:00; Stop 07/04/19 at 06:29; Status DC Ondansetron HCl (Zofran) 4 mg PRN Q4HRS PRN IV NAUSEA/VOMITING 1ST CHOICE Last administered on 10/15/19at 13:37; Start 07/04/19 at 09:30 Insulin Human Lispro (HumaLOG) 0-9 UNITS Q6HRS SQ Last administered on 10/12/19at 18:05; Start 07/04/19 at 09:30 Dextrose (Dextrose 50%-Water Syringe) 12.5 gm PRN Q15MIN PRN IV SEE COMMENTS; Start 07/04/19 at 09:30 Pantoprazole Sodium (PROTONIX VIAL for IV PUSH) 40 mg DAILYAC IVP Last administered on 10/17/19at 09:03; Start 07/04/19 at 11:30 Prochlorperazine Edisylate (Compazine) 10 mg PRN Q6HRS PRN IV NAUSEA/VOMITING, 2nd CHOICE Last administered on 10/15/19at 10:53; Start 07/04/19 at 17:45 Atenolol (Tenormin) 100 mg DAILY PO ; Start 07/05/19 at 09:00; Stop 07/04/19 at 20:08; Status DC Metoprolol Tartrate (Lopressor Vial) 2.5 mg Q6HRS IVP Last administered on 07/05/19at 05:51; Start 07/04/19 at 20:15; Stop 07/05/19 at 10:02; Status DC Metoprolol Tartrate (Lopressor Vial) 5 mg Q6HRS IVP Last administered on 07/14/19at 00:12; Start 07/05/19 at 10:15; Stop 07/16/19 at 08:48; Status DC Hydromorphone HCl (Dilaudid) 1 mg PRN Q3HRS PRN IV SEVERE PAIN 7-10 Last administered on 07/11/19at 05:13; Start 07/05/19 at 12:00; Stop 07/19/19 at 00:25; Status DC Lidocaine HCl (Buffered Lidocaine 1%) 3 ml STK-MED ONCE .ROUTE ; Start 07/05/19 at 12:55; Stop 07/05/19 at 12:56; Status DC Albumin Human 500 ml @ 125 mls/hr 1X ONCE IV Last administered on 07/05/19at 14:33; Start 07/05/19 at 14:30; Stop 07/05/19 at 18:32; Status DC Norepinephrine Bitartrate 8 mg/ Dextrose 258 ml @ 17.299 mls/ hr CONT PRN IV PER PROTOCOL Last administered on 08/02/19at 12:48; Start 07/05/19 at 15:30; Stop 08/05/19 at 09:19; Status DC Sodium Chloride 1,000 ml @ 125 mls/hr Q8H IV Last administered on 07/05/19at 21:04; Start 07/05/19 at 16:00; Stop 07/06/19 at 02:42; Status DC Albumin Human 500 ml @ 125 mls/hr PRN BID PRN IV After every 2L NSS & BP < 90mm Last administered on 09/24/19at 11:40; Start 07/05/19 at 16:00 Iohexol (Omnipaque 300 Mg/ml) 60 ml 1X ONCE IV Last administered on 07/05/19at 17:20; Start 07/05/19 at 17:00; Stop 07/05/19 at 17:01; Status DC Info (CONTRAST GIVEN -- Rx MONITORING) 1 each PRN DAILY PRN MC SEE COMMENTS; Start 07/05/19 at 17:00; Stop 07/07/19 at 16:59; Status DC Meropenem 1 gm/ Sodium Chloride 100 ml @ 200 mls/hr Q8HRS IV Last administered on 07/06/19at 05:45; Start 07/05/19 at 20:00; Stop 07/06/19 at 08:48; Status DC Furosemide (Lasix) 40 mg 1X ONCE IVP Last administered on 07/05/19at 22:12; Start 07/05/19 at 22:30; Stop 07/05/19 at 22:31; Status DC Calcium Chloride 1000 mg/Sodium Chloride 110 ml @ 220 mls/hr 1X ONCE IV Last administered on 07/05/19at 22:11; Start 07/05/19 at 22:30; Stop 07/05/19 at 22:59; Status DC Albuterol Sulfate (Ventolin Neb Soln) 2.5 mg 1X ONCE NEB Last administered on 07/06/19at 00:56; Start 07/05/19 at 22:30; Stop 07/05/19 at 22:31; Status DC Insulin Human Regular (HumuLIN R VIAL) 5 unit 1X ONCE IV Last administered on 07/05/19at 22:14; Start 07/05/19 at 22:30; Stop 07/05/19 at 22:31; Status DC Magnesium Sulfate 50 ml @ 25 mls/hr 1X ONCE IV Last administered on 07/06/19at 02:57; Start 07/06/19 at 03:00; Stop 07/06/19 at 04:59; Status DC Calcium Gluconate 1000 mg/Sodium Chloride 110 ml @ 220 mls/hr 1X ONCE IV Last administered on 07/06/19at 02:46; Start 07/06/19 at 03:00; Stop 07/06/19 at 03:29; Status DC Sodium Chloride 1,000 ml @ 200 mls/hr Q5H IV Last administered on 07/06/19at 02:46; Start 07/06/19 at 03:00; Stop 07/06/19 at 10:21; Status DC Calcium Gluconate 1000 mg/Sodium Chloride 110 ml @ 220 mls/hr 1X ONCE IV Last administered on 07/06/19at 03:21; Start 07/06/19 at 03:30; Stop 07/06/19 at 03:59; Status DC Sodium Bicarbonate 50 meq/Sodium Chloride 1,050 ml @ 75 mls/hr Q14H IV Last administered on 07/10/19at 21:10; Start 07/06/19 at 07:30; Stop 07/11/19 at 10:28; Status DC Calcium Gluconate 2000 mg/Sodium Chloride 120 ml @ 220 mls/hr 1X ONCE IV Last administered on 07/06/19at 09:05; Start 07/06/19 at 07:30; Stop 07/06/19 at 08:02; Status DC Lidocaine HCl (Xylocaine-Mpf 1% 2ml Vial) 2 ml STK-MED ONCE .ROUTE ; Start 07/06/19 at 08:47; Stop 07/06/19 at 08:47; Status DC Meropenem 500 mg/ Sodium Chloride 50 ml @ 100 mls/hr Q12HR IV Last administered on 07/11/19at 21:01; Start 07/06/19 at 18:00; Stop 07/12/19 at 07: 58; Status DC Lidocaine HCl (Buffered Lidocaine 1%) 3 ml STK-MED ONCE .ROUTE ; Start 07/06/19 at 09:46; Stop 07/06/19 at 09:46; Status DC Lidocaine HCl (Buffered Lidocaine 1%) 6 ml 1X ONCE INJ Last administered on 07/06/19at 10:26; Start 07/06/19 at 10:15; Stop 07/06/19 at 10:16; Status DC Info (Tpn Per Pharmacy) 1 each PRN DAILY PRN MC SEE COMMENTS Last administered on 10/16/19at 10:04; Start 07/06/19 at 12:00 Sodium Chloride 1,000 ml @ 1,000 mls/hr Q1H PRN IV hypotension; Start 07/06/19 at 12:07; Stop 07/06/19 at 18:06; Status DC Diphenhydramine HCl (Benadryl) 25 mg 1X PRN PRN IV ITCHING; Start 07/06/19 at 12:15; Stop 07/07/19 at 12:14; Status DC Diphenhydramine HCl (Benadryl) 25 mg 1X PRN PRN IV ITCHING; Start 07/06/19 at 12:15; Stop 07/07/19 at 12:14; Status DC Sodium Chloride 1,000 ml @ 400 mls/hr Q2H30M PRN IV PATENCY; Start 07/06/19 at 12:07; Stop 07/07/19 at 00:06; Status DC Info (PHARMACY MONITORING -- do not chart) 1 each PRN DAILY PRN MC SEE COMMENTS; Start 07/06/19 at 12:15; Stop 07/08/19 at 08:13; Status DC Sodium Chloride 90 meq/Calcium Gluconate 10 meq/ Multivitamins 10 ml/Chromium/ Copper/Manganese/ Seleni/Zn 1 ml/ Total Parenteral Nutrition/Amino Acids/Dextrose/ Fat Emulsion Intravenous 55.005 ml @ 2.292 mls/hr TPN CONT IV ; Start 07/06/19 at 22:00; Stop 07/06/19 at 12:33; Status DC Info (Tpn Per Pharmacy) 1 each PRN DAILY PRN MC SEE COMMENTS; Start 07/06/19 at 12:30; Status UNV Sodium Chloride 90 meq/Calcium Gluconate 10 meq/ Multivitamins 10 ml/Chromium/ Copper/Manganese/ Seleni/Zn 0.5 ml/ Total Parenteral Nutrition/Amino Acids/Dextrose/ Fat Emulsion Intravenous 1,512 ml @ 63 mls/hr TPN CONT IV L ast administered on 07/06/19at 22:06; Start 07/06/19 at 22:00; Stop 07/07/19 at 21:59; Status DC Calcium Carbonate/ Glycine (Tums) 500 mg PRN AFTMEALHC PRN PO INDIGESTION; Start 07/06/19 at 17:45; Stop 08/31/19 at 10:25; Status DC Calcium Gluconate (Calcium Gluconate) 2,000 mg 1X ONCE IVP Last administered on 07/07/19at 02:19; Start 07/07/19 at 02:15; Stop 07/07/19 at 02:16; Status DC Calcium Chloride 3000 mg/Sodium Chloride 1,030 ml @ 50 mls/hr [id number] IV Last administered on 07/09/19at 02:17; Start 07/07/19 at 08:00; Stop 07/09/19 at 15:23; Status DC Lorazepam (Ativan Inj) 1 mg PRN Q4HRS PRN IVP ANXIETY / AGITATION, 2nd choic Last administered on 08/05/19at 03:51; Start 07/07/19 at 09:00; Stop 08/05/19 at 09:19; Status DC Sodium Chloride 1,000 ml @ 1,000 mls/hr Q1H PRN IV hypotension; Start 07/07/19 at 08:56; Stop 07/07/19 at 14:55; Status DC Albumin Human 200 ml @ 200 mls/hr 1X PRN PRN IV Hypotension; Start 07/07/19 at 09:00; Stop 07/07/19 at 14:59; Status DC Diphenhydramine HCl (Benadryl) 25 mg 1X PRN PRN IV ITCHING; Start 07/07/19 at 09:00; Stop 07/08/19 at 08:59; Status DC Diphenhydramine HCl (Benadryl) 25 mg 1X PRN PRN IV ITCHING; Start 07/07/19 at 09:00; Stop 07/08/19 at 08:59; Status DC Sodium Chloride 1,000 ml @ 400 mls/hr Q2H30M PRN IV PATENCY; Start 07/07/19 at 08:56; Stop 07/07/19 at 20:55; Status DC Info (PHARMACY MONITORING -- do not chart) 1 each PRN DAILY PRN MC SEE COMMENTS; Start 07/07/19 at 09:00; Status UNV Info (PHARMACY MONITORING -- do not chart) 1 each PRN DAILY PRN MC SEE COMMENTS; Start 07/07/19 at 09:00; Stop 07/08/19 at 08:13; Status DC Digoxin (Lanoxin) 500 mcg 1X ONCE IV Last administered on 07/07/19at 10:04; Start 07/07/19 at 10:00; Stop 07/07/19 at 10:01; Status DC Digoxin (Lanoxin) 125 mcg 1X ONCE IV Last administered on 07/07/19at 17:10; Start 07/07/19 at 18:00; Stop 07/07/19 at 18:01; Status DC Magnesium Sulfate 100 ml @ 25 mls/hr 1X ONCE IV Last administered on 07/07/19at 12:48; Start 07/07/19 at 13:00; Stop 07/07/19 at 16:59; Status DC Sodium Chloride 90 meq/Magnesium Sulfate 10 meq/ Calcium Gluconate 20 meq/ Multivitamins 10 ml/Chromium/ Copper/Manganese/ Seleni/Zn 0.5 ml/ Total Parenteral Nutrition/Amino Acids/Dextrose/ Fat Emulsion Intravenous 1,512 ml @ 63 mls/hr TPN CONT IV Last administered on 07/07/19at 22:25; Start 07/07/19 at 22:00; Stop 07/08/19 at 21:59; Status DC Sodium Chloride 1,000 ml @ 1,000 mls/hr Q1H PRN IV hypotension; Start 07/08/19 at 08:05; Stop 07/08/19 at 14:04; Status DC Albumin Human 200 ml @ 200 mls/hr 1X ONCE IV Last administered on 07/08/19at 08:57; Start 07/08/19 at 08:15; Stop 07/08/19 at 09:14; Status DC Diphenhydramine HCl (Benadryl) 25 mg 1X PRN PRN IV ITCHING; Start 07/08/19 at 08:15; Stop 07/09/19 at 08:14; Status DC Diphenhydramine HCl (Benadryl) 25 mg 1X PRN PRN IV ITCHING; Start 07/08/19 at 08:15; Stop 07/09/19 at 08:14; Status DC Sodium Chloride 1,000 ml @ 400 mls/hr Q2H30M PRN IV PATENCY; Start 07/08/19 at 08:05; Stop 07/08/19 at 20:04; Status DC Info (PHARMACY MONITORING -- do not chart) 1 each PRN DAILY PRN MC SEE COMMENTS; Start 07/08/19 at 08:15; Stop 07/12/19 at 07:57; Status DC Sodium Chloride 90 meq/Potassium Chloride 15 meq/ Potassium Phosphate 10 mmol/ Magnesium Sulfate 10 meq/Calcium Gluconate 20 meq/ Multivitamins 10 ml/Chromium/ Copper/Manganese/ Seleni/Zn 0.5 ml/ Total Parenteral Nutrition/Amino Acids/Dextrose/ Fat Emulsion Intravenous 1,512 ml @ 63 mls/hr TPN CONT IV Last administered on 07/08/19at 21:01; Start 07/08/19 at 22:00; Stop 07/09/19 at 21:59; Status DC Potassium Chloride/Water 100 ml @ 100 mls/hr 1X ONCE IV Last administered on 07/08/19at 14:09; Start 07/08/19 at 14:00; Stop 07/08/19 at 14:59; Status DC Benzocaine (Hurricaine One) 1 spray 1X ONCE MM Last administered on 07/08/19at 16:38; Start 07/08/19 at 14:30; Stop 07/08/19 at 14:31; Status DC Lidocaine HCl (Glydo (Lidocaine) Jelly) 1 ramu 1X ONCE MM Last administered on 07/08/19at 16:38; Start 07/08/19 at 14:30; Stop 07/08/19 at 14:31; Status DC Linezolid/Dextrose 300 ml @ 300 mls/hr Q12HR IV Last administered on 07/14/19at 21:04; Start 07/08/19 at 20:00; Stop 07/15/19 at 07:50; Status DC Acetaminophen (Tylenol) 650 mg PRN Q6HRS PRN PO MILD PAIN / TEMP; Start 07/09/19 at 03:30; Stop 07/09/19 at 03:36; Status DC Acetaminophen (Tylenol) 650 mg PRN Q6HRS PRN PEG MILD PAIN / TEMP Last administered on 08/04/19at 19:56; Start 07/09/19 at 03:36; Stop 08/31/19 at 10:25; Status DC Sodium Chloride 1,000 ml @ 1,000 mls/hr Q1H PRN IV hypotension; Start 07/09/19 at 07:50; Stop 07/09/19 at 13:49; Status DC Albumin Human 200 ml @ 200 mls/hr 1X PRN PRN IV Hypotension; Start 07/09/19 at 08:00; Stop 07/09/19 at 13:59; Status DC Sodium Chloride (Normal Saline Flush) 10 ml 1X PRN PRN IV AP catheter pack; Start 07/09/19 at 08:00; Stop 07/10/19 at 07:59; Status DC Sodium Chloride (Normal Saline Flush) 10 ml 1X PRN PRN IV BOWLING PIN REFINISHER catheter pack; Start 07/09/19 at 08:00; Stop 07/10/19 at 07:59; Status DC Sodium Chloride 1,000 ml @ 400 mls/hr Q2H30M PRN IV PATENCY; Start 07/09/19 at 07:50; Stop 07/09/19 at 19:49; Status DC Info (PHARMACY MONITORING -- do not chart) 1 each PRN DAILY PRN MC SEE COMMENTS; Start 07/09/19 at 08:00; Status UNV Info (PHARMACY MONITORING -- do not chart) 1 each PRN DAILY PRN MC SEE COMMENTS; Start 07/09/19 at 08:00; Stop 07/11/19 at 08:25; Status DC Sodium Chloride 90 meq/Potassium Chloride 15 meq/ Potassium Phosphate 10 mmol/ Magnesium Sulfate 10 meq/Calcium Gluconate 20 meq/ Multivitamins 10 ml/Chromium/ Copper/Manganese/ Seleni/Zn 0.5 ml/ Total Parenteral Nutrition/Amino Acids/Dextrose/ Fat Emulsion Intravenous 1,512 ml @ 63 mls/hr TPN CONT IV Last administered on 07/09/19at 20:57; Start 07/09/19 at 22:00; Stop 07/10/19 at 21:59; Status DC Sodium Chloride 90 meq/Potassium Chloride 15 meq/ Potassium Phosphate 15 mmol/ Magnesium Sulfate 10 meq/Calcium Gluconate 20 meq/ Multivitamins 10 ml/Chromium/ Copper/Manganese/ Seleni/Zn 0.5 ml/ Total Parenteral Nutrition/Amino Acids/Dext amarilis/ Fat Emulsion Intravenous 1,512 ml @ 63 mls/hr TPN CONT IV ; Start 07/10/19 at 22:00; Stop 07/10/19 at 14:16; Status DC Sodium Chloride 90 meq/Potassium Chloride 15 meq/ Potassium Phosphate 15 mmol/ Magnesium Sulfate 10 meq/Calcium Gluconate 20 meq/ Multivitamins 10 ml/Chromium/ Copper/Manganese/ Seleni/Zn 0.5 ml/ Total Parenteral Nutrition/Amino Acids/Dextrose/ Fat Emulsion Intravenous 1,200 ml @ 50 mls/hr TPN CONT IV ; Start 07/10/19 at 22:00; Stop 07/10/19 at 14:17; Status DC Sodium Chloride 90 meq/Potassium Chloride 15 meq/ Potassium Phosphate 10 mmol/ Magnesium Sulfate 10 meq/Calcium Gluconate 20 meq/ Multivitamins 10 ml/Chromium/ Copper/Manganese/ Seleni/Zn 0.5 ml/ Total Parenteral Nutrition/Amino Acids/Dextrose/ Fat Emulsion Intravenous 1,200 ml @ 50 mls/hr TPN CONT IV Last administered on 07/10/19at 23:29; Start 07/10/19 at 22:00; Stop 07/11/19 at 21:59; Status DC Sodium Chloride 1,000 ml @ 1,000 mls/hr Q1H PRN IV hypotension; Start 07/11/19 at 07:28; Stop 07/11/19 at 13:27; Status DC Albumin Human 200 ml @ 200 mls/hr 1X ONCE IV Last administered on 07/11/19at 08:51; Start 07/11/19 at 07:30; Stop 07/11/19 at 08:29; Status DC Diphenhydramine HCl (Benadryl) 25 mg 1X PRN PRN IV ITCHING; Start 07/11/19 at 07:30; Stop 07/12/19 at 07:29; Status DC Diphenhydramine HCl (Benadryl) 25 mg 1X PRN PRN IV ITCHING; Start 07/11/19 at 07:30; Stop 07/12/19 at 07:29; Status DC Sodium Chloride 1,000 ml @ 400 mls/hr Q2H30M PRN IV PATENCY; Start 07/11/19 at 07:28; Stop 07/11/19 at 19:27; Status DC Info (PHARMACY MONITORING -- do not chart) 1 each PRN DAILY PRN MC SEE COMMENTS; Start 07/11/19 at 07:30; Stop 07/22/19 at 13:01; Status DC Metronidazole 100 ml @ 100 mls/hr Q6HRS IV Last administered on 07/27/19at 06:26; Start 07/11/19 at 08:30; Stop 07/27/19 at 09:58; Status DC Micafungin Sodium 100 mg/Dextrose 100 ml @ 100 mls/hr Q24H IV Last administered on 08/18/19at 08:18; Start 07/11/19 at 09:00; Stop 08/18/19 at 20:58; Status DC Propofol 0 ml @ As Directed STK-MED ONCE IV ; Start 07/11/19 at 07:53; Stop 07/11/19 at 07:53; Status DC Etomidate (Amidate) 20 mg STK-MED ONCE IV ; Start 07/11/19 at 07:53; Stop 07/11/19 at 07:54; Status DC Midazolam HCl (Versed) 5 mg STK-MED ONCE .ROUTE ; Start 07/11/19 at 07:57; Stop 07/11/19 at 07:57; Status DC Fentanyl Citrate 30 ml @ 0 mls/hr CONT PRN IV SEE PROTOCOL Last administered on 08/05/19at 06:12; Start 07/11/19 at 08:15; Stop 08/05/19 at 09:19; Status DC Artificial Tears (Artificial Tears) 1 drop PRN Q1HR PRN OU DRY EYE, 1st choice; Start 07/11/19 at 08:15; Stop 08/17/19 at 05:31; Status DC Midazolam HCl 50 mg/Sodium Chloride 50 ml @ 0 mls/hr CONT PRN IV SEE PROTOCOL Last administered on 07/14/19at 22:39; Start 07/11/19 at 08:15; Stop 07/16/19 at 15:59; Status DC Etomidate (Amidate) 8 mg 1X ONCE IV Last administered on 07/11/19at 08:33; Start 07/11/19 at 08:30; Stop 07/11/19 at 08:31; Status DC Succinylcholine Chloride (Anectine) 120 mg 1X ONCE IV Last administered on 07/11/19at 08:34; Start 07/11/19 at 08:30; Stop 07/11/19 at 08:31; Status DC Midazolam HCl (Versed) 5 mg 1X ONCE IV ; Start 07/11/19 at 08:30; Stop 07/11/19 at 08:31; Status DC Potassium Chloride 15 meq/ Bicarbonate Dialysis Soln w/ out KCl 5,007.5 ml @ 1,000 mls/ hr Q5H1M IV Last administered on 07/12/19at 11:11; Start 07/11/19 at 12:00; Stop 07/12/19 at 11:15; Status DC Potassium Chloride 15 meq/ Bicarbonate Dialysis Soln w/ out KCl 5,007.5 ml @ 1,000 mls/ hr Q5H1M IV Last administered on 07/12/19at 11:12; Start 07/11/19 at 12:00; Stop 07/12/19 at 11:17; Status DC Potassium Chloride 15 meq/ Bicarbonate Dialysis Soln w/ out KCl 5,007.5 ml @ 1,000 mls/ hr Q5H1M IV Last administered on 07/12/19at 11:11; Start 07/11/19 at 12:00; Stop 07/12/19 at 11:19; Status DC Sodium Chloride 90 meq/Potassium Chloride 15 meq/ Potassium Phosphate 10 mmol/ Magnesium Sulfate 10 meq/Calcium Gluconate 20 meq/ Multivitamins 10 ml/Chromium/ Copper/Manganese/ Seleni/Zn 0.5 ml/ Total Parenteral Nutrition/Amino Acids/Dextrose/ Fat Emulsion Intravenous 1,400 ml @ 58.333 mls/ hr TPN CONT IV Last administered on 07/11/19at 21:42; Start 07/11/19 at 22:00; Stop 07/12/19 at 21:59; Status DC Heparin Sodium (Porcine) (Heparin Sodium) 5,000 unit Q8HRS SQ Last administered on 07/16/19at 05:55; Start 07/11/19 at 15:00; Stop 07/16/19 at 13:28; Status DC Meropenem 500 mg/ Sodium Chloride 50 ml @ 100 mls/hr Q6HRS IV Last administered on 07/13/19at 06:00; Start 07/12/19 at 09:00; Stop 07/13/19 at 07:29; Status DC Potassium Phosphate 20 mmol/ Sodium Chloride 106.6667 ml @ 51.667 m... 1X ONCE IV Last administered on 07/12/19at 11:22; Start 07/12/19 at 10:15; Stop 07/12/19 at 12:18; Status DC Acetaminophen (Tylenol Supp) 650 mg PRN Q6HRS PRN PA MILD PAIN / TEMP > 100.3'F Last administered on 10/16/19at 20:49; Start 07/12/19 at 10:30 Potassium Chloride/Water 100 ml @ 100 mls/hr Q1H IV Last administered on 07/12/19at 12:12; Start 07/12/19 at 11:00; Stop 07/12/19 at 12:59; Status DC Potassium Chloride 20 meq/ Bicarbonate Dialysis Soln w/ out KCl 5,010 ml @ 1,000 mls/hr Q5H1M IV Last administered on 07/13/19at 08:48; Start 07/12/19 at 12:00; Stop 07/13/19 at 13:03; Status DC Potassium Chloride 20 meq/ Bicarbonate Dialysis Soln w/ out KCl 5,010 ml @ 1,000 mls/hr Q5H1M IV Last administered on 07/17/19at 14:52; Start 07/12/19 at 11:30; Stop 07/17/19 at 19:59; Status DC Potassium Chloride 20 meq/ Bicarbonate Dialysis Soln w/ out KCl 5,010 ml @ 1,000 mls/hr Q5H1M IV Last administered on 07/17/19at 14:53; Start 07/12/19 at 11:30; Stop 07/17/19 at 19:59; Status DC Sodium Chloride 90 meq/Potassium Chloride 15 meq/ Potassium Phosphate 15 mmol/ Magnesium Sulfate 10 meq/Calcium Gluconate 15 meq/ Multivitamins 10 ml/Chromium/ Copper/Manganese/ Seleni/Zn 0.5 ml/ Total Parenteral Nutrition/Amino Acids/Dextrose/ Fat Emulsion Intravenous 1,400 ml @ 58.333 mls/ hr TPN CONT IV Last administered on 07/12/19at 22:17; Start 07/12/19 at 22:00; Stop 07/13/19 at 21:59; Status DC Cefepime HCl (Maxipime) 2 gm Q12HR IVP Last administered on 07/26/19at 20:56; Start 07/13/19 at 09:00; Stop 07/27/19 at 09:58; Status DC Daptomycin 500 mg/ Sodium Chloride 50 ml @ 100 mls/hr Q48H IV Last administered on 07/29/19at 09:57; Start 07/13/19 at 08:30; Stop 07/29/19 at 10:07; Status DC Lidocaine HCl (Buffered Lidocaine 1%) 3 ml 1X ONCE INJ Last administered on 07/13/19at 10:27; Start 07/13/19 at 10:30; Stop 07/13/19 at 10:31; Status DC Potassium Phosphate 20 mmol/ Sodium Chloride 106.6667 ml @ 51.667 m... 1X ONCE IV Last administered on 07/13/19at 12:51; Start 07/13/19 at 13:00; Stop 07/13/19 at 15:03; Status DC Sodium Chloride 90 meq/Potassium Chloride 15 meq/ Potassium Phosphate 18 mmol/ Magnesium Sulfate 8 meq/Calcium Gluconate 15 meq/ Multivitamins 10 ml/Chromium/ Copper/Manganese/ Seleni/Zn 0.5 ml/ Total Parenteral Nutrition/Amino Acids/Dextrose/ Fat Emulsion Intravenous 1,400 ml @ 58.333 mls/ hr TPN CONT IV Last administered on 07/13/19at 22:16; Start 07/13/19 at 22:00; Stop 07/14/19 at 21:59; Status DC Potassium Chloride 20 meq/ Bicarbonate Dialysis Soln w/ out KCl 5,010 ml @ 1,000 mls/hr Q5H1M IV Last administered on 07/17/19at 14:54; Start 07/13/19 at 16:00; Stop 07/17/19 at 19:59; Status DC Multi-Ingred Cream/Lotion/Oil/ Oint (Artificial Tears Eye Ointment) 1 ramu PRN Q 1HR PRN OU DRY EYE, 2nd choice Last administered on 08/01/19at 08:19; Start 07/13/19 at 17:30; Stop 09/21/19 at 14:39; Status DC Sodium Chloride 90 meq/Potassium Chloride 15 meq/ Potassium Phosphate 18 mmol/ Magnesium Sulfate 8 meq/Calcium Gluconate 15 meq/ Multivitamins 10 ml/Chromium/ Copper/Manganese/ Seleni/Zn 0.5 ml/ Total Parenteral Nutrition/Amino Acids/Dextrose/ Fat Emulsion Intravenous 1,400 ml @ 58.333 mls/ hr TPN CONT IV Last administered on 07/14/19at 22:00; Start 07/14/19 at 22:00; Stop 07/15/19 at 21:59; Status DC Albumin Human 500 ml @ 125 mls/hr 1X ONCE IV ; Start 07/14/19 at 14:15; Stop 07/14/19 at 18:14; Status DC Sodium Chloride 90 meq/Potassium Chloride 15 meq/ Potassium Phosphate 18 mmol/ Magnesium Sulfate 8 meq/Calcium Gluconate 15 meq/ Multivitamins 10 ml/Chromium/ Copper/Manganese/ Seleni/Zn 0.5 ml/ Insulin Human Regular 10 unit/ Total Parenteral Nutrition/Amino Acids/Dextrose/ Fat Emulsion Intravenous 1,400 ml @ 58.333 mls/ hr TPN CONT IV Last administered on 07/15/19at 21:43; Start 07/15/19 at 22:00; Stop 07/16/19 at 21:59; Status DC Lidocaine HCl (Buffered Lidocaine 1%) 3 ml STK-MED ONCE .ROUTE ; Start 07/13/19 at 10:00; Stop 07/15/19 at 13:57; Status DC Midazolam HCl 100 mg/Sodium Chloride 100 ml @ 7 mls/hr CONT PRN IV SEE PROTOCOL Last administered on 07/27/19at 15:35; Start 07/16/19 at 16:00; Stop 09/21/19 at 14:38; Status DC Sodium Chloride 90 meq/Potassium Chloride 15 meq/ Potassium Phosphate 18 mmol/ Magnesium Sulfate 8 meq/Calcium Gluconate 15 meq/ Multivitamins 10 ml/Chromium/ Copper/Manganese/ Seleni/Zn 0.5 ml/ Insulin Human Regular 15 unit/ Total Parenteral Nutrition/Amino Acids/Dextrose/ Fat Emulsion Intravenous 1,400 ml @ 58.333 mls/ hr TPN CONT IV Last administered on 07/16/19at 20:34; Start 07/16/19 at 22:00; Stop 07/17/19 at 21:59; Status DC Info (Icu Electrolyte Protocol) 1 ea CONT PRN PRN MC PER PROTOCOL; Start 07/17/19 at 13:15 Sodium Chloride 90 meq/Potassium Chloride 15 meq/ Potassium Phosphate 18 mmol/ Magnesium Sulfate 8 meq/Calcium Gluconate 15 meq/ Multivitamins 10 ml/Chromium/ Copper/Manganese/ Seleni/Zn 0.5 ml/ Insulin Human Regular 15 unit/ Total Parenteral Nutrition/Amino Acids/Dextrose/ Fat Emulsion Intravenous 1,400 ml @ 58.333 mls/ hr TPN CONT IV Last administered on 07/17/19at 22:05; Start 07/17/19 at 22:00; Stop 07/18/19 at 21:59; Status DC Potassium Chloride 15 meq/ Bicarbonate Dialysis Soln w/ out KCl 5,007.5 ml @ 1,000 mls/ hr Q5H1M IV Last administered on 07/20/19at 18:14; Start 07/17/19 at 20:00; Stop 07/21/19 at 13:08; Status DC Potassium Chloride 15 meq/ Bicarbonate Dialysis Soln w/ out KCl 5,007.5 ml @ 1,000 mls/ hr Q5H1M IV Last administered on 07/20/19at 18:14; Start 07/17/19 at 20:00; Stop 07/21/19 at 13:08; Status DC Potassium Chloride 15 meq/ Bicarbonate Dialysis Soln w/ out KCl 5,007.5 ml @ 1,000 mls/ hr Q5H1M IV Last administered on 07/20/19at 18:14; Start 07/17/19 at 20:00; Stop 07/21/19 at 13:08; Status DC Iohexol (Omnipaque 240 Mg/ml) 30 ml 1X ONCE PO Last administered on 07/18/19at 11:30; Start 07/18/19 at 11:30; Stop 07/18/19 at 11:33; Status DC Info (CONTRAST GIVEN -- Rx MONITORING) 1 each PRN DAILY PRN MC SEE COMMENTS; Start 07/18/19 at 11:45; Stop 07/20/19 at 11:44; Status DC Sodium Chloride 90 meq/Potassium Chloride 15 meq/ Potassium Phosphate 18 mmol/ Magnesium Sulfate 8 meq/Calcium Gluconate 15 meq/ Multivitamins 10 ml/Chromium/ Copper/Manganese/ Seleni/Zn 0.5 ml/ Insulin Human Regular 15 unit/ Total Parenteral Nutrition/Amino Acids/Dextrose/ Fat Emulsion Intravenous 1,400 ml @ 58.333 mls/ hr TPN CONT IV Last administered on 07/18/19at 21:47; Start 07/18/19 at 22:00; Stop 07/19/19 at 21:59; Status DC Sodium Chloride 90 meq/Potassium Chloride 15 meq/ Potassium Phosphate 18 mmol/ Magnesium Sulfate 8 meq/Calcium Gluconate 15 meq/ Multivitamins 10 ml/Chromium/ Copper/Manganese/ Seleni/Zn 0.5 ml/ Insulin Human Regular 20 unit/ Total Parenteral Nutrition/Amino Acids/Dextrose/ Fat Emulsion Intravenous 1,400 ml @ 58.333 mls/ hr TPN CONT IV Last administered on 07/19/19at 21:36; Start 07/19/19 at 22:00; Stop 07/20/19 at 21:59; Status DC Alteplase, Recombinant (Cathflo For Central Catheter Clearance) 1 mg 1X ONCE INT CAT Last administered on 07/19/19at 20:03; Start 07/19/19 at 19:30; Stop 07/19/19 at 19:46; Status DC Alteplase, Recombinant (Cathflo For Central Catheter Clearance) 1 mg 1X ONCE INT CAT Last administered on 07/19/19at 22:05; Start 07/19/19 at 22:00; Stop 07/19/19 at 22:01; Status DC Sodium Chloride 90 meq/Potassium Chloride 15 meq/ Potassium Phosphate 18 mmol/ Magnesium Sulfate 8 meq/Calcium Gluconate 15 meq/ Multivitamins 10 ml/Chromium/ Copper/Manganese/ Seleni/Zn 0.5 ml/ Insulin Human Regular 20 unit/ Total Parenteral Nutrition/Amino Acids/Dextrose/ Fat Emulsion Intravenous 1,400 ml @ 58.333 mls/ hr TPN CONT IV Last administered on 07/20/19at 21:30; Start 07/20/19 at 22:00; Stop 07/21/19 at 21:59; Status DC Dexmedetomidine HCl 400 mcg/ Sodium Chloride 100 ml @ 0 mls/hr CONT PRN IV ANXIETY / AGITATION Last administered on 09/17/19at 12:57; Start 07/21/19 at 08:15; Stop 09/17/19 at 18:31; Status DC Sodium Chloride 500 ml @ 500 mls/hr 1X PRN PRN IV ELEVATED BP, SEE COMMENTS; Start 07/21/19 at 08:15 Atropine Sulfate (ATROPINE 0.5mg SYRINGE) 0.5 mg PRN Q5MIN PRN IV SEE COMMENTS; Start 07/21/19 at 08:15 Furosemide (Lasix) 20 mg 1X ONCE IVP Last administered on 07/21/19at 08:19; Start 07/21/19 at 08:15; Stop 07/21/19 at 08:16; Status DC Lidocaine HCl (Buffered Lidocaine 1%) 3 ml STK-MED ONCE .ROUTE ; Start 07/21/19 at 08:39; Stop 07/21/19 at 08:39; Status DC Lidocaine HCl (Buffered Lidocaine 1%) 6 ml 1X ONCE INJ Last administered on 07/21/19at 09:05; Start 07/21/19 at 09:00; Stop 07/21/19 at 09:06; Status DC Sodium Chloride 90 meq/Potassium Chloride 15 meq/ Potassium Phosphate 18 mmol/ Magnesium Sulfate 8 meq/Calcium Gluconate 15 meq/ Multivitamins 10 ml/Chromium/ Copper/Manganese/ Seleni/Zn 0.5 ml/ Insulin Human Regular 20 unit/ Total Parenteral Nutrition/Amino Acids/Dextrose/ Fat Emulsion Intravenous 1,400 ml @ 58.333 mls/ hr TPN CONT IV Last administered on 07/21/19at 22:45; Start 07/21/19 at 22:00; Stop 07/22/19 at 21:59; Status DC Sodium Chloride 1,000 ml @ 1,000 mls/hr Q1H PRN IV hypotension; Start 07/22/19 at 07:30; Stop 07/22/19 at 13:29; Status DC Albumin Human 200 ml @ 200 mls/hr 1X PRN PRN IV Hypotension Last administered on 07/22/19at 09:36; Start 07/22/19 at 07:30; Stop 07/22/19 at 13:29; Status DC Sodium Chloride (Normal Saline Flush) 10 ml 1X PRN PRN IV AP catheter pack; Start 07/22/19 at 07:30; Stop 07/22/19 at 21:29; Status DC Sodium Chloride (Normal Saline Flush) 10 ml 1X PRN PRN IV BOWLING PIN REFINISHER catheter pack; S tart 07/22/19 at 07:30; Stop 07/23/19 at 07:29; Status DC Sodium Chloride 1,000 ml @ 400 mls/hr Q2H30M PRN IV PATENCY; Start 07/22/19 at 07:30; Stop 07/22/19 at 19:29; Status DC Info (PHARMACY MONITORING -- do not chart) 1 each PRN DAILY PRN MC SEE COMMENTS ; Start 07/22/19 at 07:30; Stop 07/22/19 at 13:02; Status DC Info (PHARMACY MONITORING -- do not chart) 1 each PRN DAILY PRN MC SEE COMMENTS; Start 07/22/19 at 07:30; Stop 07/24/19 at 12:45; Status DC Sodium Chloride 90 meq/Potassium Chloride 15 meq/ Potassium Phosphate 10 mmol/ Magnesium Sulfate 8 meq/Calcium Gluconate 15 meq/ Multivitamins 10 ml/Chromium/ Copper/Manganese/ Seleni/Zn 0.5 ml/ Insulin Human Regular 25 unit/ Total Parenteral Nutrition/Amino Acids/Dextrose/ Fat Emulsion Intravenous 1,400 ml @ 58.333 mls/ hr TPN CONT IV Last administered on 07/22/19at 22:19; Start 07/22/19 at 22:00; Stop 07/23/19 at 21:59; Status DC Heparin Sodium (Porcine) (Heparin Sodium) 5,000 unit Q12HR SQ Last administered on 08/14/19at 08:59; Start 07/22/19 at 21:00; Stop 08/14/19 at 10:05; Status DC Ondansetron HCl (Zofran) 4 mg PRN Q6HRS PRN IV NAUSEA/VOMITING; Start 07/25/19 at 07:00; Stop 07/26/19 at 06:59; Status DC Fentanyl Citrate (Fentanyl 2ml Vial) 25 mcg PRN Q5MIN PRN IV MILD PAIN 1-3; Start 07/25/19 at 07:00; Stop 07/26/19 at 06:59; Status DC Fentanyl Citrate (Fentanyl 2ml Vial) 50 mcg PRN Q5MIN PRN IV MODERATE TO SEVERE PAIN; Start 07/25/19 at 07:00; Stop 07/26/19 at 06:59; Status DC Ringer's Solution 1,000 ml @ 30 mls/hr Q24H IV ; Start 07/25/19 at 07:00; Stop 07/25/19 at 18:59; Status DC Lidocaine HCl (Xylocaine-Mpf 1% 2ml Vial) 2 ml PRN 1X PRN ID PRIOR TO IV START; Start 07/25/19 at 07:00; Stop 07/26/19 at 06:59; Status DC Prochlorperazine Edisylate (Compazine) 5 mg PACU PRN PRN IV NAUSEA, MRX1; Start 07/25/19 at 07:00; Stop 07/26/19 at 06:59; Status DC Sodium Chloride 1,000 ml @ 1,000 mls/hr Q1H PRN IV hypotension; Start 07/23/19 at 09:10; Stop 07/23/19 at 15:09; Status DC Albumin Human 200 ml @ 200 mls/hr 1X PRN PRN IV Hypotension Last administered on 07/23/19at 10:10; Start 07/23/19 at 09:15; Stop 07/23/19 at 15:14; Status DC Sodium Chloride 1,000 ml @ 400 mls/hr Q2H30M PRN IV PATENCY; Start 07/23/19 at 09:10; Stop 07/23/19 at 21:09; Status DC Info (PHARMACY MONITORING -- do not chart) 1 each PRN DAILY PRN MC SEE COMMENTS; Start 07/23/19 at 09:15; Stop 07/24/19 at 12:45; Status DC Info (PHARMACY MONITORING -- do not chart) 1 each PRN DAILY PRN MC SEE COMMENTS; Start 07/23/19 at 09:15; Stop 07/24/19 at 12:45; Status DC Sodium Chloride 90 meq/Potassium Chloride 15 meq/ Potassium Phosphate 10 mmol/ Magnesium Sulfate 8 meq/Calcium Gluconate 15 meq/ Multivitamins 10 ml/Chromium/ Copper/Manganese/ Seleni/Zn 0.5 ml/ Insulin Human Regular 25 unit/ Total Parenteral Nutrition/Amino Acids/Dextrose/ Fat Emulsion Intravenous 1,400 ml @ 58.333 mls/ hr TPN CONT IV Last administered on 07/23/19at 22:10; Start 07/23/19 at 22:00; Stop 07/24/19 at 21:59; Status DC Magnesium Sulfate 50 ml @ 25 mls/hr PRN DAILY PRN IV for Mag < 1.7 on am labs Last administered on 10/06/19at 10:57; Start 07/24/19 at 09:15 Sodium Chloride 90 meq/Potassium Chloride 15 meq/ Potassium Phosphate 10 mmol/ Magnesium Sulfate 8 meq/Calcium Gluconate 15 meq/ Multivitamins 10 ml/Chromium/ Copper/Manganese/ Seleni/Zn 0.5 ml/ Insulin Human Regular 25 unit/ Total Paren teral Nutrition/Amino Acids/Dextrose/ Fat Emulsion Intravenous 1,400 ml @ 58.333 mls/ hr TPN CONT IV Last administered on 07/24/19at 21:20; Start 07/24/19 at 22:00; Stop 07/25/19 at 21:59; Status DC Sodium Chloride 1,000 ml @ 1,000 mls/hr Q1H PRN IV hypotension; Start 07/24/19 at 12:23; Stop 07/24/19 at 18:22; Status DC Albumin Human 200 ml @ 200 mls/hr 1X ONCE IV Last administered on 07/24/19at 13:34; Start 07/24/19 at 12:30; Stop 07/24/19 at 13:29; Status DC Diphenhydramine HCl (Benadryl) 25 mg 1X PRN PRN IV ITCHING; Start 07/24/19 at 12:30; Stop 07/25/19 at 12:29; Status DC Diphenhydramine HCl (Benadryl) 25 mg 1X PRN PRN IV ITCHING; Start 07/24/19 at 12:30; Stop 07/25/19 at 12:29; Status DC Info (PHARMACY MONITORING -- do not chart) 1 each PRN DAILY PRN MC SEE COMMENTS; Start 07/24/19 at 12:30; Status Cancel Bupivacaine HCl/ Epinephrine Bitart (Sensorcain-Epi 0.5%-1:[id number] Mpf) 30 ml STK-MED ONCE .ROUTE Last administered on 07/25/19at 11:44; Start 07/25/19 at 11:00; Stop 07/25/19 at 11:01; Status DC Cellulose (Surgicel Fibrillar 1x2) 1 each STK-MED ONCE .ROUTE ; Start 07/25/19 at 11:00; Stop 07/25/19 at 11:01; Status DC Sodium Chloride 90 meq/Potassium Chloride 15 meq/ Potassium Phosphate 10 mmol/ Magnesium Sulfate 12 meq/Calcium Gluconate 15 meq/ Multivitamins 10 ml/Chromium/ Copper/Manganese/ Seleni/Zn 0.5 ml/ Insulin Human Regular 25 unit/ Total Parenteral Nutrition/Amino Acids/Dextrose/ Fat Emulsion Intravenous 1,400 ml @ 58.333 mls/ hr TPN CONT IV Last administered on 07/25/19at 22:24; Start 07/25/19 at 22:00; Stop 07/26/19 at 21:59; Status DC Propofol 20 ml @ As Directed STK-MED ONCE IV ; Start 07/25/19 at 11:07; Stop 07/25/19 at 11:07; Status DC Cellulose (Surgicel Hemostat 4x8) 1 each STK-MED ONCE .ROUTE Last administered on 07/25/19at 11:44; Start 07/25/19 at 11:55; Stop 07/25/19 at 11:56; Status DC Sevoflurane (Ultane) 60 ml STK-MED ONCE IH ; Start 07/25/19 at 12:46; Stop 07/25/19 at 12:46; Status DC Sodium Chloride 1,000 ml @ 1,000 mls/hr Q1H PRN IV hypotension; Start 07/25/19 at 13:51; Stop 07/25/19 at 19:50; Status DC Albumin Human 200 ml @ 200 mls/hr 1X PRN PRN IV Hypotension Last administered on 07/25/19at 14:51; Start 07/25/19 at 14:00; Stop 07/25/19 at 19:59; Status DC Diphenhydramine HCl (Benadryl) 25 mg 1X PRN PRN IV ITCHING; Start 07/25/19 at 14:00; Stop 07/26/19 at 13:59; Status DC Diphenhydramine HCl (Benadryl) 25 mg 1X PRN PRN IV ITCHING; Start 07/25/19 at 14:00; Stop 07/26/19 at 13:59; Status DC Sodium Chloride 1,000 ml @ 400 mls/hr Q2H30M PRN IV PATENCY; Start 07/25/19 at 13:51; Stop 07/26/19 at 01:50; Status DC Info (PHARMACY MONITORING -- do not chart) 1 each PRN DAILY PRN MC SEE COMMENTS; Start 07/25/19 at 14:00; Stop 07/28/19 at 08:16; Status DC Heparin Sodium (Porcine) (Hep Lock Adult) 500 unit STK-MED ONCE IVP ; Start 07/26/19 at 09:29; Stop 07/26/19 at 09:30; Status DC Sodium Chloride 1,000 ml @ 1,000 mls/hr Q1H PRN IV hypotension; Start 07/26/19 at 10:43; Stop 07/26/19 at 16:42; Status DC Sodium Chloride 1,000 ml @ 400 mls/hr Q2H30M PRN IV PATENCY; Start 07/26/19 at 10:43; Stop 07/26/19 at 22:42; Status DC Info (PHARMACY MONITORING -- do not chart) 1 each PRN DAILY PRN MC SEE COMMENTS; Start 07/26/19 at 10:45; Status UNV Info (PHARMACY MONITORING -- do not chart) 1 each PRN DAILY PRN MC SEE COMMENTS; Start 07/26/19 at 10:45; Status UNV Sodium Chloride 90 meq/Potassium Chloride 15 meq/ Magnesium Sulfate 12 meq/Calcium Gluconate 15 meq/ Multivitamins 10 ml/Chromium/ Copper/Manganese/ Seleni/Zn 0.5 ml/ Insulin Human Regular 25 unit/ Total Parenteral Nutrition/Amino Acids/Dextrose/ Fat Emulsion Intravenous 1,400 ml @ 58.333 mls/ hr TPN CONT IV Last administered on 07/26/19at 22:13; Start 07/26/19 at 22:00; Stop 07/27/19 at 21:59; Status DC Sodium Chloride 1,000 ml @ 1,000 mls/hr Q1H PRN IV hypotension; Start 07/27/19 at 07:50; Stop 07/27/19 at 13:49; Status DC Albumin Human 200 ml @ 200 mls/hr 1X ONCE IV ; Start 07/27/19 at 08:00; Stop 07/27/19 at 08:53; Status DC Diphenhydramine HCl (Benadryl) 25 mg 1X PRN PRN IV ITCHING; Start 07/27/19 at 08:00; Stop 07/28/19 at 07:59; Status DC Diphenhydramine HCl (Benadryl) 25 mg 1X PRN PRN IV ITCHING; Start 07/27/19 at 08:00; Stop 07/28/19 at 07:59; Status DC Info (PHARMACY MONITORING -- do not chart) 1 each PRN DAILY PRN MC SEE COMMENTS; Start 07/27/19 at 08:00; Stop 07/28/19 at 08:16; Status DC Albumin Human 50 ml @ 50 mls/hr 1X ONCE IV ; Start 07/27/19 at 08:53; Stop 07/27/19 at 08:56; Status DC Albumin Human 200 ml @ 50 mls/hr PRN 1X PRN IV HYPOTENSION Last administered on 08/02/19at 11:54; Start 07/27/19 at 09:00; Stop 09/08/19 at 11:14; Status DC Meropenem 500 mg/ Sodium Chloride 50 ml @ 100 mls/hr Q12H IV Last administered on 08/16/19at 10:45; Start 07/27/19 at 10:00; Stop 08/16/19 at 12:37; Status DC Sodium Chloride 90 meq/Magnesium Sulfate 12 meq/ Calcium Gluconate 15 meq/ Multivitamins 10 ml/Chromium/ Copper/Manganese/ Seleni/Zn 0.5 ml/ Insulin Human Regular 25 unit/ Total Parenteral Nutrition/Amino Acids/Dextrose/ Fat Emulsion Intravenous 1,400 ml @ 58.333 mls/ hr TPN CONT IV Last administered on 07/27/19at 21:41; Start 07/27/19 at 22:00; Stop 07/28/19 at 21:59; Status DC Sodium Chloride 1,000 ml @ 1,000 mls/hr Q1H PRN IV hypotension; Start 07/28/19 at 07:58; Stop 07/28/19 at 13:57; Status DC Albumin Human 200 ml @ 200 mls/hr 1X PRN PRN IV Hypotension Last administered on 07/28/19at 09:30; Start 07/28/19 at 08:00; Stop 07/28/19 at 13:59; Status DC Sodium Chloride 1,000 ml @ 400 mls/hr Q2H30M PRN IV PATENCY; Start 07/28/19 at 07:58; Stop 07/28/19 at 19:57; Status DC Info (PHARMACY MONITORING -- do not chart) 1 each PRN DAILY PRN MC SEE COMMENTS; Start 07/28/19 at 08:00; Status Cancel Info (PHARMACY MONITORING -- do not chart) 1 each PRN DAILY PRN MC SEE COMMENTS; Start 07/28/19 at 08:15; Status UNV Sodium Chloride 90 meq/Potassium Phosphate 5 mmol/ Magnesium Sulfate 12 meq/Calcium Gluconate 15 meq/ Multivitamins 10 ml/Chromium/ Copper/Manganese/ Seleni/Zn 0.5 ml/ Insulin Human Regular 30 unit/ Total Parenteral Nutrition/Amino Acids/Dextrose/ Fat Emulsion Intravenous 1,400 ml @ 58.333 mls/ hr TPN CONT IV Last administered on 07/28/19at 22:08; Start 07/28/19 at 22:00; Stop 07/29/19 at 21:59; Status DC Linezolid/Dextrose 300 ml @ 300 mls/hr Q12HR IV Last administered on 08/08/19at 20:40; Start 07/29/19 at 11:00; Stop 08/09/19 at 08:10; Status DC Sodium Chloride 90 meq/Potassium Phosphate 15 mmol/ Magnesium Sulfate 12 meq/Calcium Gluconate 15 meq/ Multivitamins 10 ml/Chromium/ Copper/Manganese/ Seleni/Zn 0.5 ml/ Insulin Human Regular 30 unit/ Total Parenteral Nutrition/Amino Acids/Dextrose/ Fat Emulsion Intravenous 1,400 ml @ 58.333 mls/ hr TPN CONT IV Last administered on 07/29/19at 21:49; Start 07/29/19 at 22:00; Stop 07/30/19 at 21:59; Status DC Sodium Chloride 90 meq/Potassium Phosphate 15 mmol/ Magnesium Sulfate 12 meq/Calcium Gluconate 15 meq/ Multivitamins 10 ml/Chromium/ Copper/Manganese/ Seleni/Zn 0.5 ml/ Insulin Human Regular 40 unit/ Total Parenteral Nutrition/Amino Acids/Dextrose/ Fat Emulsion Intravenous 1,400 ml @ 58.333 mls/ hr TPN CONT IV Last administered on 07/30/19at 21:21; Start 07/30/19 at 22:00; Stop 07/31/19 at 21:59; Status DC Sodium Chloride 1,000 ml @ 1,000 mls/hr Q1H PRN IV hypotension; Start 07/30/19 at 13:26; Stop 07/30/19 at 19:25; Status DC Albumin Human 200 ml @ 200 mls/hr 1X PRN PRN IV Hypotension Last administered on 07/30/19at 15:00; Start 07/30/19 at 13:30; Stop 07/30/19 at 19:29; Status DC Sodium Chloride (Normal Saline Flush) 10 ml 1X PRN PRN IV AP catheter pack; Start 07/30/19 at 13:30; Stop 07/31/19 at 13:29; Status DC Sodium Chloride (Normal Saline Flush) 10 ml 1X PRN PRN IV BOWLING PIN REFINISHER catheter pack; Start 07/30/19 at 13:30; Stop 07/31/19 at 13:29; Status DC Sodium Chloride 1,000 ml @ 400 mls/hr Q2H30M PRN IV PATENCY; Start 07/30/19 at 13:26; Stop 07/31/19 at 01:25; Status DC Info (PHARMACY MONITORING -- do not chart) 1 each PRN DAILY PRN MC SEE COMMENTS; Start 07/30/19 at 13:30; Stop 07/30/19 at 13:33; Status DC Info (PHARMACY MONITORING -- do not chart) 1 each PRN DAILY PRN MC SEE COMMENTS; Start 07/30/19 at 13:30; Stop 07/30/19 at 13:34; Status DC Sodium Chloride 90 meq/Potassium Phosphate 19 mmol/ Magnesium Sulfate 12 meq/Calcium Gluconate 15 meq/ Multivitamins 10 ml/Chromium/ Copper/Manganese/ Seleni/Zn 0.5 ml/ Insulin Human Regular 40 unit/ Total Parenteral Nutrition/Amino Acids/Dextrose/ Fat Emulsion Intravenous 1,400 ml @ 58.333 mls/ hr TPN CONT IV Last administered on 07/31/19at 21:54; Start 07/31/19 at 22:00; Stop 08/01/19 at 21:59; Status DC Sodium Chloride 1,000 ml @ 1,000 mls/hr Q1H PRN IV hypotension; Start 08/01/19 at 09:35; Stop 08/01/19 at 15:34; Status DC Albumin Human 200 ml @ 200 mls/hr 1X PRN PRN IV Hypotension; Start 08/01/19 at 09:45; Stop 08/01/19 at 15:44; Status DC Diphenhydramine HCl (Benadryl) 25 mg 1X PRN PRN IV ITCHING; Start 08/01/19 at 09:45; Stop 08/02/19 at 09:44; Status DC Diphenhydramine HCl (Benadryl) 25 mg 1X PRN PRN IV ITCHING; Start 08/01/19 at 09:45; Stop 08/02/19 at 09:44; Status DC Sodium Chloride 1,000 ml @ 400 mls/hr Q2H30M PRN IV PATENCY; Start 08/01/19 at 09:35; Stop 08/01/19 at 21:34; Status DC Info (PHARMACY MONITORING -- do not chart) 1 each PRN DAILY PRN MC SEE COMMENTS; Start 08/01/19 at 09:45; Status Cancel Sodium Chloride 100 meq/Potassium Phosphate 19 mmol/ Magnesium Sulfate 12 meq/Calcium Gluconate 15 meq/ Multivitamins 10 ml/Chromium/ Copper/Manganese/ Seleni/Zn 0.5 ml/ Insulin Human Regular 40 unit/ Potassium Chloride 20 meq/ Total Parenteral Nutrition/Amino Acids/Dextrose/ Fat Emulsion Intravenous 1,400 ml @ 58.333 mls/ hr TPN CONT IV Last administered on 08/01/19at 22:02; Start 08/01/19 at 22:00; Stop 08/02/19 at 21:59; Status DC Furosemide (Lasix) 40 mg 1X ONCE IVP Last administered on 08/01/19at 14:39; Start 08/01/19 at 14:30; Stop 08/01/19 at 14:31; Status DC Metronidazole 100 ml @ 100 mls/hr Q8HRS IV Last administered on 08/09/19at 06:04; Start 08/02/19 at 10:00; Stop 08/09/19 at 08:10; Status DC Sodium Chloride 1,000 ml @ 1,000 mls/hr Q1H PRN IV hypotension; Start 08/02/19 at 08:00; Stop 08/02/19 at 13:59; Status DC Albumin Human 200 ml @ 200 mls/hr 1X PRN PRN IV Hypotension; Start 08/02/19 at 08:00; Stop 08/02/19 at 13:59; Status DC Sodium Chloride 1,000 ml @ 400 mls/hr Q2H30M PRN IV PATENCY; Start 08/02/19 at 08:00; Stop 08/02/19 at 19:59; Status DC Info (PHARMACY MONITORING -- do not chart) 1 each PRN DAILY PRN MC SEE COMMENTS; Start 08/02/19 at 11:30; Status UNV Info (PHARMACY MONITORING -- do not chart) 1 each PRN DAILY PRN MC SEE COMMENTS; Start 08/02/19 at 11:30; Stop 08/04/19 at 12:13; Status DC Sodium Chloride 100 meq/Potassium Phosphate 19 mmol/ Magnesium Sulfate 12 meq/Calcium Gluconate 15 meq/ Multivitamins 10 ml/Chromium/ Copper/Manganese/ Seleni/Zn 0.5 ml/ Insulin Human Regular 40 unit/ Potassium Chloride 20 meq/ Total Parenteral Nutrition/Amino Acids/Dextrose/ Fat Emulsion Intravenous 1,400 ml @ 58.333 mls/ hr TPN CONT IV Last administered on 08/02/19at 21:52; Start 08/02/19 at 22:00; Stop 08/03/19 at 21:59; Status DC Sodium Chloride (Normal Saline Flush) 10 ml QSHIFT PRN IV AFTER MEDS AND BLOOD DRAWS; Start 08/02/19 at 15:00; Stop 08/30/19 at 11:27; Status DC Sodium Chloride (Normal Saline Flush) 10 ml PRN Q5MIN PRN IV AFTER MEDS AND BLOOD DRAWS; Start 08/02/19 at 15:00 Sodium Chloride (Normal Saline Flush) 20 ml PRN Q5MIN PRN IV AFTER MEDS AND BLOOD DRAWS; Start 08/02/19 at 15:00 Sodium Chloride 100 meq/Potassium Phosphate 19 mmol/ Magnesium Sulfate 12 meq/Calcium Gluconate 15 meq/ Multivitamins 10 ml/Chromium/ Copper/Manganese/ Seleni/Zn 0.5 ml/ Insulin Human Regular 40 unit/ Potassium Chloride 20 meq/ Total Parenteral Nutrition/Amino Acids/Dextrose/ Fat Emulsion Intravenous 1,400 ml @ 58.333 mls/ hr TPN CONT IV Last administered on 08/03/19at 21:20; Start 08/03/19 at 22:00; Stop 08/04/19 at 21:59; Status DC Lidocaine HCl (Buffered Lidocaine 1%) 3 ml STK-MED ONCE .ROUTE ; Start 08/03/19 at 13:16; Stop 08/03/19 at 13:16; Status DC Lidocaine HCl (Buffered Lidocaine 1%) 6 ml 1X ONCE INJ Last administered on 08/03/19at 13:45; Start 08/03/19 at 13:30; Stop 08/03/19 at 13:31; Status DC Albumin Human 100 ml @ 100 mls/hr 1X ONCE IV Last administered on 08/03/19at 15:41; Start 08/03/19 at 15:00; Stop 08/03/19 at 15:59; Status DC Albumin Human 50 ml @ 50 mls/hr 1X ONCE IV Last administered on 08/03/19at 15:00; Start 08/03/19 at 15:00; Stop 08/03/19 at 15:59; Status DC Info (PHARMACY MONITORING -- do not chart) 1 each PRN DAILY PRN MC SEE COMMENTS; Start 08/04/19 at 11:30; Status Cancel Info (PHARMACY MONITORING -- do not chart) 1 each PRN DAILY PRN MC SEE COMMENTS; Start 08/04/19 at 11:30; Status UNV Sodium Chloride 100 meq/Potassium Phosphate 10 mmol/ Magnesium Sulfate 12 meq/Calcium Gluconate 15 meq/ Multivitamins 10 ml/Chromium/ Copper/Manganese/ Seleni/Zn 0.5 ml/ Insulin Human Regular 35 unit/ Potassium Chloride 20 meq/ Total Parenteral Nutrition/Amino Acids/Dextrose/ Fat Emulsion Intravenous 1,400 ml @ 58.333 mls/ hr TPN CONT IV Last administered on 08/04/19at 22:10; Start 08/04/19 at 22:00; Stop 08/05/19 at 21:59; Status DC Sodium Chloride 100 meq/Potassium Phosphate 5 mmol/ Magnesium Sulfate 12 meq/Calcium Gluconate 15 meq/ Multivitamins 10 ml/Chromium/ Copper/Manganese/ Seleni/Zn 0.5 ml/ Insulin Human Regular 35 unit/ Potassium Chloride 20 meq/ Total Parenteral Nutrition/Amino Acids/Dextrose/ Fat Emulsion Intravenous 1,400 ml @ 58.333 mls/ hr TPN CONT IV Last administered on 08/05/19at 22:59; Start 08/05/19 at 22:00; Stop 08/06/19 at 21:59; Status DC Sodium Chloride 1,000 ml @ 1,000 mls/hr Q1H PRN IV hypotension; Start 08/06/19 at 08:27; Stop 08/06/19 at 14:26; Status DC Albumin Human 200 ml @ 200 mls/hr 1X PRN PRN IV Hypotension Last administered on 08/06/19at 09:18; Start 08/06/19 at 08:30; Stop 08/06/19 at 14:29; Status DC Sodium Chloride 1,000 ml @ 400 mls/hr Q2H30M PRN IV PATENCY; Start 08/06/19 at 08:27; Stop 08/06/19 at 20:26; Status DC Info (PHARMACY MONITORING -- do not chart) 1 each PRN DAILY PRN MC SEE COMMENTS; Start 08/06/19 at 08:30; Status Cancel Info (PHARMACY MONITORING -- do not chart) 1 each PRN DAILY PRN MC SEE COMMENTS; Start 08/06/19 at 08:30; Stop 08/14/19 at 13:10; Status DC Sodium Chloride 100 meq/Potassium Chloride 40 meq/ Magnesium Sulfate 15 meq/Calcium Gluconate 15 meq/ Multivitamins 10 ml/Chromium/ Copper/Manganese/ Seleni/Zn 0.5 ml/ Insulin Human Regular 35 unit/ Total Parenteral Nutrition/Amino Acids/Dextrose/ Fat Emulsion Intravenous 1,400 ml @ 58.333 mls/ hr TPN CONT IV Last administered on 08/06/19at 22:00; Start 08/06/19 at 22:00; Stop 08/07/19 at 21:59; Status DC Potassium Chloride/Water 100 ml @ 100 mls/hr 1X ONCE IV Last administered on 08/06/19at 17:28; Start 08/06/19 at 14:45; Stop 08/06/19 at 15:44; Status DC Sodium Chloride 100 meq/Potassium Chloride 40 meq/ Magnesium Sulfate 15 meq/Calcium Gluconate 15 meq/ Multivitamins 10 ml/Chromium/ Copper/Manganese/ Seleni/Zn 0.5 ml/ Insulin Human Regular 35 unit/ Total Parenteral Nutrition/Amino Acids/Dextrose/ Fat Emulsion Intravenous 1,400 ml @ 58.333 mls/ hr TPN CONT IV Last administered on 08/07/19at 22:46; Start 08/07/19 at 22:00; Stop 08/08/19 at 21:59; Status DC Sodium Chloride 100 meq/Potassium Chloride 40 meq/ Magnesium Sulfate 20 meq/Calcium Gluconate 15 meq/ Multivitamins 10 ml/Chromium/ Copper/Manganese/ Seleni/Zn 0.5 ml/ Insulin Human Regular 35 unit/ Total Parenteral Nutrition/Amino Acids/Dextrose/ Fat Emulsion Intravenous 1,400 ml @ 58.333 mls/ hr TPN CONT IV Last administered on 08/08/19at 22:31; Start 08/08/19 at 22:00; Stop 08/09/19 at 21:59; Status DC Fentanyl Citrate (Fentanyl 2ml Vial) 50 mcg PRN Q2HR PRN IVP PAIN Last administered on 08/15/19at 13:32; Start 08/08/19 at 21:00; Stop 08/16/19 at 12:53; Status DC Fentanyl Citrate (Fentanyl 2ml Vial) 25 mcg PRN Q2HR PRN IVP PAIN; Start 08/08/19 at 21:00; Stop 08/16/19 at 12:54; Status DC Enoxaparin Sodium (Lovenox 100mg Syringe) 100 mg Q12HR SQ ; Start 08/09/19 at 21:00; Status UNV Amino Acids/ Glycerin/ Electrolytes 1,000 ml @ 75 mls/hr [id number] IV ; Start 08/08/19 at 21:15; Status UNV Sodium Chloride 1,000 ml @ 1,000 mls/hr Q1H PRN IV hypotension; Start 08/09/19 at 07:56; Stop 08/09/19 at 13:55; Status DC Albumin Human 200 ml @ 200 mls/hr 1X PRN PRN IV Hypotension Last administered on 08/09/19at 08:40; Start 08/09/19 at 08:00; Stop 08/09/19 at 13:59; Status DC Sodium Chloride 1,000 ml @ 400 mls/hr Q2H30M PRN IV PATENCY; Start 08/09/19 at 07:56; Stop 08/09/19 at 19:55; Status DC Info (PHARMACY MONITORING -- do not chart) 1 each PRN DAILY PRN MC SEE COMMENTS; Start 08/09/19 at 08:00; Status UNV Info (PHARMACY MONITORING -- do not chart) 1 each PRN DAILY PRN MC SEE COMMENTS; Start 08/09/19 at 08:00; Status UNV Daptomycin 430 mg/ Sodium Chloride 50 ml @ 100 mls/hr Q24H IV Last administered on 08/09/19at 12:35; Start 08/09/19 at 09:00; Stop 08/09/19 at 12:49; Status DC Sodium Chloride 100 meq/Potassium Chloride 40 meq/ Magnesium Sulfate 20 me q/Calcium Gluconate 15 meq/ Multivitamins 10 ml/Chromium/ Copper/Manganese/ Seleni/Zn 0.5 ml/ Insulin Human Regular 35 unit/ Total Parenteral Nutrition/Amino Acids/Dextrose/ Fat Emulsion Intravenous 1,400 ml @ 58.333 mls/ hr TPN CONT IV Last administered on 08/09/19at 21:26; Start 08/09/19 at 22:00; Stop 08/10/19 at 21:59; Status DC Daptomycin 430 mg/ Sodium Chloride 50 ml @ 100 mls/hr Q48H IV ; Start 08/11/19 at 09:00; Stop 08/10/19 at 11:55; Status DC Sodium Chloride 100 meq/Potassium Chloride 40 meq/ Magnesium Sulfate 20 meq/Calcium Gluconate 15 meq/ Multivitamins 10 ml/Chromium/ Copper/Manganese/ Seleni/Zn 0.5 ml/ Insulin Human Regular 35 unit/ Total Parenteral Nutrition/Amino Acids/Dextrose/ Fat Emulsion Intravenous 1,400 ml @ 58.333 mls/ hr TPN CONT IV Last administered on 08/10/19at 22:27; Start 08/10/19 at 22:00; Stop 08/11/19 at 21:59; Status DC Daptomycin 430 mg/ Sodium Chloride 50 ml @ 100 mls/hr Q24H IV Last administered on 08/12/19at 15:07; Start 08/10/19 at 13:00; Stop 08/13/19 at 13:15 ; Status DC Sodium Chloride 100 meq/Potassium Chloride 40 meq/ Magnesium Sulfate 20 meq/Calcium Gluconate 10 meq/ Multivitamins 10 ml/Chromium/ Copper/Manganese/ Seleni/Zn 0.5 ml/ Insulin Human Regular 35 unit/ Total Parenteral Nutrition/Amino Acids/Dextrose/ Fat Emulsion Intravenous 1,400 ml @ 58.333 mls/ hr TPN CONT IV Last administered on 08/12/19at 00:06; Start 08/11/19 at 22:00; Stop 08/12/19 at 21:59; Status DC Alteplase, Recombinant (Cathflo For Central Catheter Clearance) 1 mg 1X ONCE INT CAT Last administered on 08/12/19at 11:44; Start 08/12/19 at 10:45; Stop 08/12/19 at 10:46; Status DC Ondansetron HCl (Zofran) 4 mg PRN Q6HRS PRN IV NAUSEA/VOMITING; Start 08/15/19 at 07:00; Stop 08/16/19 at 06:59; Status DC Fentanyl Citrate (Fentanyl 2ml Vial) 25 mcg PRN Q5MIN PRN IV MILD PAIN 1-3; Start 08/15/19 at 07:00; Stop 08/16/19 at 06:59; Status DC Fentanyl Citrate (Fentanyl 2ml Vial) 50 mcg PRN Q5MIN PRN IV MODERATE TO SEVERE PAIN Last administered on 08/15/19at 10:17; Start 08/15/19 at 07:00; Stop 08/16/19 at 06:59; Status DC Ringer's Solution 1,000 ml @ 30 mls/hr Q24H IV ; Start 08/15/19 at 07:00; Stop 08/15/19 at 18:59; Status DC Lidocaine HCl (Xylocaine-Mpf 1% 2ml Vial) 2 ml PRN 1X PRN ID PRIOR TO IV START; Start 08/15/19 at 07:00; Stop 08/16/19 at 06:59; Status DC Prochlorperazine Edisylate (Compazine) 5 mg PACU PRN PRN IV NAUSEA, MRX1; Start 08/15/19 at 07:00; Stop 08/16/19 at 06:59; Status DC Sodium Acetate 50 meq/Potassium Acetate 55 meq/ Magnesium Sulfate 20 meq/Calcium Gluconate 10 meq/ Multivitamins 10 ml/Chromium/ Copper/Manganese/ Seleni/Zn 0.5 ml/ Insulin Human Regular 35 unit/ Total Parenteral Nutrition/Amino Acids/Dextrose/ Fat Emulsion Intravenous 1,400 ml @ 58.333 mls/ hr TPN CONT IV ; Start 08/12/19 at 22:00; Stop 08/12/19 at 14:15; Status DC Sodium Acetate 50 meq/Potassium Acetate 55 meq/ Magnesium Sulfate 20 meq/Calcium Gluconate 10 meq/ Multivitamins 10 ml/Chromium/ Copper/Manganese/ Seleni/Zn 0.5 ml/ Insulin Human Regular 35 unit/ Total Parenteral Nutrition/Amino Acids /Dextrose/ Fat Emulsion Intravenous 1,800 ml @ 75 mls/hr TPN CONT IV Last administered on 08/12/19at 22:38; Start 08/12/19 at 22:00; Stop 08/13/19 at 21:59; Status DC Sodium Chloride 1,000 ml @ 1,000 mls/hr Q1H PRN IV hypotension; Start 08/12/19 at 15:31; Stop 08/12/19 at 21:30; Status DC Diphenhydramine HCl (Benadryl) 25 mg 1X PRN PRN IV ITCHING; Start 08/12/19 at 15:45; Stop 08/13/19 at 15:44; Status DC Diphenhydramine HCl (Benadryl) 25 mg 1X PRN PRN IV ITCHING; Start 08/12/19 at 15:45; Stop 08/13/19 at 15:44; Status DC Sodium Chloride 1,000 ml @ 400 mls/hr Q2H30M PRN IV PATENCY; Start 08/12/19 at 15:31; Stop 08/13/19 at 03:30; Status DC Info (PHARMACY MONITORING -- do not chart) 1 each PRN DAILY PRN MC SEE COMMENTS; Start 08/12/19 at 15:45; Stop 09/13/19 at 14:14; Status DC Sodium Acetate 50 meq/Potassium Acetate 55 meq/ Magnesium Sulfate 20 meq/Calcium Gluconate 10 meq/ Multivitamins 10 ml/Chromium/ Copper/Manganese/ Seleni/Zn 0.5 ml/ Insulin Human Regular 35 unit/ Total Parenteral Nutrition/Amino Acids/Dextrose/ Fat Emulsion Intravenous 1,800 ml @ 75 mls/hr TPN CONT IV Last administered on 08/13/19at 22:03; Start 08/13/19 at 22:00; Stop 08/14/19 at 21:59; Status DC Daptomycin 430 mg/ Sodium Chloride 50 ml @ 100 mls/hr Q24H IV Last admini stered on 08/18/19at 13:00; Start 08/13/19 at 13:00; Stop 08/18/19 at 20:58; Status DC Heparin Sodium (Porcine) 1000 unit/Sodium Chloride 1,001 ml @ 1,001 mls/hr 1X ONCE IRR ; Start 08/15/19 at 06:00; Stop 08/15/19 at 06:59; Status DC Potassium Acetate 55 meq/Magnesium Sulfate 20 meq/ Calcium Gluconate 10 meq/ Multivitamins 10 ml/Chromium/ Copper/Manganese/ Seleni/Zn 0.5 ml/ Insulin Human Regular 35 unit/ Total Parenteral Nutrition/Amino Acids/Dextrose/ Fat Emulsion Intravenous 1,920 ml @ 80 mls/hr TPN CONT IV Last administered on 08/14/19at 22:10; Start 08/14/19 at 22:00; Stop 08/15/19 at 21:59; Status DC Dexamethasone Sodium Phosphate (Decadron) 4 mg STK-MED ONCE .ROUTE ; Start 08/15/19 at 10:56; Stop 08/15/19 at 10:57; Status DC Ondansetron HCl (Zofran) 4 mg STK-MED ONCE .ROUTE ; Start 08/15/19 at 10:56; Stop 08/15/19 at 10:57; Status DC Rocuronium [place] (Zemuron) 50 mg STK-MED ONCE .ROUTE ; Start 08/15/19 at 10:56; Stop 08/15/19 at 10:57; Status DC Fentanyl Citrate (Fentanyl 2ml Vial) 100 mcg STK-MED ONCE .ROUTE ; Start 08/15/19 at 10:56; Stop 08/15/19 at 10:57; Status DC Bupivacaine HCl/ Epinephrine Bitart (Sensorcain-Epi 0.5%-1:[id number] Mpf) 30 ml STK-MED ONCE .ROUTE Last administered on 08/15/19at 12:01; Start 08/15/19 at 10:58; Stop 08/15/19 at 10:58; Status DC Cellulose (Surgicel Hemostat 2x14) 1 each STK-MED ONCE .ROUTE ; Start 08/15/19 at 10:58; Stop 08/15/19 at 10:59; Status DC Iohexol (Omnipaque 300 Mg/ml) 50 ml STK-MED ONCE .ROUTE ; Start 08/15/19 at 10:58; Stop 08/15/19 at 10:59; Status DC Cellulose (Surgicel Hemostat 4x8) 1 each STK-MED ONCE .ROUTE ; Start 08/15/19 at 10:58; Stop 08/15/19 at 10:59; Status DC Bisacodyl (Dulcolax Supp) 10 mg STK-MED ONCE .ROUTE ; Start 08/15/19 at 10:59; Stop 08/15/19 at 10:59; Status DC Heparin Sodium (Porcine) 1000 unit/Sodium Chloride 1,001 ml @ 1,001 mls/hr 1X ONCE IRR ; Start 08/15/19 at 12:00; Stop 08/15/19 at 12:59; Status DC Propofol 20 ml @ As Directed STK-MED ONCE IV ; Start 08/15/19 at 11:05; Stop 08/15/19 at 11:05; Status DC Sevoflurane (Ultane) 90 ml STK-MED ONCE IH ; Start 08/15/19 at 11:05; Stop 08/15/19 at 11:05; Status DC Sevoflurane (Ultane) 60 ml STK-MED ONCE IH ; Start 08/15/19 at 12:26; Stop 08/15/19 at 12:27; Status DC Propofol 20 ml @ As Directed STK-MED ONCE IV ; Start 08/15/19 at 12:26; Stop 08/15/19 at 12:27; Status DC Phenylephrine HCl (PHENYLEPHRINE in 0.9% NACL PF) 1 mg STK-MED ONCE IV ; Start 08/15/19 at 12:34; Stop 08/15/19 at 12:34; Status DC Heparin Sodium (Porcine) (Heparin Sodium) 5,000 unit Q12HR SQ Last administered on 08/24/19at 20:57; Start 08/15/19 at 21:00; Stop 08/25/19 at 09:59; Status DC Sodium Chloride (Normal Saline Flush) 3 ml QSHIFT PRN IV AFTER MEDS AND BLOOD DRAWS; Start 08/15/19 at 13:45 Naloxone HCl (Narcan) 0.4 mg PRN Q2MIN PRN IV SEE INSTRUCTIONS Last administered on 09/24/19at 15:15; Start 08/15/19 at 13:45 Sodium Chloride 1,000 ml @ 25 mls/hr Q24H IV Last administered on 09/13/19at 13:37; Start 08/15/19 at 13:37; Stop 09/16/19 at 13:09; Status DC Naloxone HCl (Narcan) 0.4 mg PRN Q2MIN PRN IV SEE INSTRUCTIONS; Start 08/15/19 at 14:30; Status UNV Sodium Chloride 1,000 ml @ 25 mls/hr Q24H IV ; Start 08/15/19 at 14:30; Status UNV Hydromorphone HCl 30 ml @ 0 mls/hr CONT PRN PRN IV PER PROTOCOL Last administered on 08/20/19at 16:08; Start 08/15/19 at 14:30; Stop 08/22/19 at 08:55; Status DC Potassium Acetate 55 meq/Magnesium Sulfate 20 meq/ Calcium Gluconate 10 meq/ Multivitamins 10 ml/Chromium/ Copper/Manganese/ Seleni/Zn 0.5 ml/ Insulin Human Regular 35 unit/ Total Parenteral Nutrition/Amino Acids/Dextrose/ Fat Emulsion Intravenous 1,920 ml @ 80 mls/hr TPN CONT IV Last administered on 08/15/19at 22:01; Start 08/15/19 at 22:00; Stop 08/16/19 at 21:59; Status DC Bumetanide (Bumex) 2 mg [id number] IV Last administered on 08/19/19at 13:50; Start 08/16/19 at 14:00; Stop 08/20/19 at 14:10; Status DC Meropenem 1 gm/ Sodium Chloride 100 ml @ 200 mls/hr Q8HRS IV Last administered on 09/09/19at 05:53; Start 08/16/19 at 14:00; Stop 09/09/19 at 09:31; Status DC Potassium Acetate 55 meq/Magnesium Sulfate 20 meq/ Calcium Gluconate 10 meq/ Multivitamins 10 ml/Chromium/ Copper/Manganese/ Seleni/Zn 0.5 ml/ Insulin Human Regular 35 unit/ Total Parenteral Nutrition/Amino Acids/Dextrose/ Fat Emulsion Intravenous 1,920 ml @ 80 mls/hr TPN CONT IV Last administered on 08/16/19at 22:02; Start 08/16/19 at 22:00; Stop 08/17/19 at 21:59; Status DC Hydromorphone HCl (Dilaudid Standard [employer]) 12 mg STK-MED ONCE IV ; Start 08/15/19 at 14:35; Stop 08/16/19 at 13:53; Status DC Artificial Tears (Artificial Tears) 1 drop PRN Q15MIN PRN OU DRY EYE Last administered on 10/11/19at 21:17; Start 08/17/19 at 05:30 Hydromorphone HCl (Dilaudid Standard [employer]) 12 mg STK-MED ONCE IV ; Start 08/16/19 at 12:05; Stop 08/17/19 at 09:15; Status DC Potassium Acetate 65 meq/Magnesium Sulfate 20 meq/ Calcium Gluconate 10 meq/ Multivitamins 10 ml/Chromium/ Copper/Manganese/ Seleni/Zn 0.5 ml/ Insulin Human Regular 30 unit/ Total Parenteral Nutrition/Amino Acids/Dextrose/ Fat Emulsion Intravenous 1,920 ml @ 80 mls/hr TPN CONT IV Last administered on 08/17/19at 22:22; Start 08/17/19 at 22:00; Stop 08/18/19 at 21:59; Status DC Cyclobenzaprine HCl (Flexeril) 10 mg PRN Q6HRS PRN PO MUSCLE SPASMS; Start 08/18/19 at 10:45 Potassium Acetate 55 meq/Magnesium Sulfate 20 meq/ Calcium Gluconate 10 meq/ Multivitamins 10 ml/Chromium/ Copper/Manganese/ Seleni/Zn 0.5 ml/ Insulin Human Regular 30 unit/ Total Parenteral Nutrition/Amino Acids/Dextrose/ Fat Emulsion Intravenous 1,920 ml @ 80 mls/hr TPN CONT IV Last administered on 08/19/19at 01:00; Start 08/18/19 at 22:00; Stop 08/19/19 at 21:59; Status DC Magnesium Sulfate 50 ml @ 25 mls/hr 1X ONCE IV Last administered on 08/18/19at 17:18; Start 08/18/19 at 12:45; Stop 08/18/19 at 14:44; Status DC Potassium Chloride/Water 100 ml @ 100 mls/hr 1X ONCE IV Last administered on 08/19/19at 11:27; Start 08/19/19 at 12:00; Stop 08/19/19 at 12:59; Status DC Hydromorphone HCl (Dilaudid Standard [employer]) 12 mg STK-MED ONCE IV ; Start 08/17/19 at 10:50; Stop 08/19/19 at 11:02; Status DC Hydromorphone HCl (Dilaudid Standard [employer]) 12 mg STK-MED ONCE IV ; Start 08/18/19 at 13:47; Stop 08/19/19 at 11:03; Status DC Potassium Acetate 30 meq/Magnesium Sulfate 20 meq/ Calcium Gluconate 10 meq/ Multivitamins 10 ml/Chromium/ Copper/Manganese/ Seleni/Zn 0.5 ml/ Insulin Human Regular 30 unit/ Potassium Chloride 30 meq/ Total Parenteral Nutrition/Amino Acids/Dextrose/ Fat Emulsion Intravenous 1,920 ml @ 80 mls/hr TPN CONT IV Last administered on 08/19/19at 22:34; Start 08/19/19 at 22:00; Stop 08/20/19 at 21:59; Status DC Potassium Chloride/Water 100 ml @ 100 mls/hr Q1H IV Last administered on 08/20/19at 13:05; Start 08/20/19 at 07:00; Stop 08/20/19 at 10:59; Status DC Magnesium Sulfate 50 ml @ 25 mls/hr 1X ONCE IV Last administered on 08/20/19at 10:34; Start 08/20/19 at 10:30; Stop 08/20/19 at 12:29; Status DC Potassium Chloride 75 meq/ Magnesium Sulfate 20 meq/Calcium Gluconate 10 meq/ Multivitamins 10 ml/Chromium/ Copper/Manganese/ Seleni/Zn 0.5 ml/ Insulin Human Regular 30 unit/ Total Parenteral Nutrition/Amino Acids/Dextrose/ Fat Emulsion Intravenous 1,920 ml @ 80 mls/hr TPN CONT IV Last administered on 08/20/19at 21:51; Start 08/20/19 at 22:00; Stop 08/21/19 at 22:00; Status DC Potassium Chloride 75 meq/ Magnesium Sulfate 20 meq/Calcium Gluconate 10 meq/ Multivitamins 10 ml/Chromium/ Copper/Manganese/ Seleni/Zn 0.5 ml/ Insulin Human Regular 25 unit/ Total Parenteral Nutrition/Amino Acids/Dextrose/ Fat Emulsion Intravenous 1,920 ml @ 80 mls/hr TPN CONT IV Last administered on 08/21/19at 22:04; Start 08/21/19 at 22:00; Stop 08/22/19 at 21:59; Status DC Hydromorphone HCl (Dilaudid) 0.4 mg PRN Q4HRS PRN IVP PAIN Last administered on 08/22/19at 10:57; Start 08/22/19 at 09:00; Stop 08/22/19 at 18:59; Status DC Micafungin Sodium 100 mg/Dextrose 100 ml @ 100 mls/hr Q24H IV Last administered on 09/13/19at 12:17; Start 08/22/19 at 11:00; Stop 09/14/19 at 09:59; Status DC Daptomycin 485 mg/ Sodium Chloride 50 ml @ 100 mls/hr Q24H IV Last administered on 08/29/19at 13:10; Start 08/22/19 at 11:00; Stop 08/30/19 at 07:44; Status DC Potassium Chloride 75 meq/ Magnesium Sulfate 15 meq/Calcium Gluconate 8 meq/ Multivitamins 10 ml/Chromium/ Copper/Manganese/ Seleni/Zn 0.5 ml/ Insulin Human Regular 25 unit/ Total Parenteral Nutrition/Amino Acids/Dextrose/ Fat Emulsion Intravenous 1,920 ml @ 80 mls/hr TPN CONT IV Last administered on 08/22/19at 23:08; Start 08/22/19 at 22:00; Stop 08/23/19 at 21:59; Status DC Haloperidol Lactate (Haldol Inj) 3 mg 1X ONCE IVP Last administered on 08/22/19at 14:37; Start 08/22/19 at 14:30; Stop 08/22/19 at 14:31; Status DC Hydromorphone HCl (Dilaudid) 1 mg PRN Q4HRS PRN IVP PAIN Last administered on 09/05/19at 06:25; Start 08/22/19 at 19:00; Stop 09/05/19 at 17:10; Status DC Potassium Chloride 75 meq/ Magnesium Sulfate 15 meq/Calcium Gluconate 8 meq/ Multivitamins 10 ml/Chromium/ Copper/Manganese/ Seleni/Zn 0.5 ml/ Insulin Human Regular 20 unit/ Total Parenteral Nutrition/Amino Acids/Dextrose/ Fat Emulsion Intravenous 1,920 ml @ 80 mls/hr TPN CONT IV Last administered on 08/23/19at 22:10; Start 08/23/19 at 22:00; Stop 08/24/19 at 21:59; Status DC Lidocaine HCl (Buffered Lidocaine 1%) 3 ml STK-MED ONCE .ROUTE ; Start 08/24/19 at 11:31; Stop 08/24/19 at 11:31; Status DC Lidocaine HCl (Buffered Lidocaine 1%) 3 ml STK-MED ONCE .ROUTE ; Start 08/24/19 at 12:28; Stop 08/24/19 at 12:29; Status DC Lidocaine HCl (Buffered Lidocaine 1%) 6 ml 1X ONCE INJ Last administered on 08/24/19at 12:53; Start 08/24/19 at 12:45; Stop 08/24/19 at 12:46; Status DC Potassium Chloride 75 meq/ Magnesium Sulfate 15 meq/Calcium Gluconate 8 meq/ Multivitamins 10 ml/Chromium/ Copper/Manganese/ Seleni/Zn 0.5 ml/ Insulin Human Regular 20 unit/ Total Parenteral Nutrition/Amino Acids/Dextrose/ Fat Emulsion Intravenous 1,920 ml @ 80 mls/hr TPN CONT IV Last administered on 08/24/19at 22:00; Start 08/24/19 at 22:00; Stop 08/25/19 at 21:59; Status DC Potassium Chloride 75 meq/ Magnesium Sulfate 15 meq/Calcium Gluconate 8 meq/ Multivitamins 10 ml/Chromium/ Copper/Manganese/ Seleni/Zn 0.5 ml/ Insulin Human Regular 15 unit/ Total Parenteral Nutrition/Amino Acids/Dextrose/ Fat Emulsion Intravenous 1,920 ml @ 80 mls/hr TPN CONT IV Last administered on 08/25/19at 22:28; Start 08/25/19 at 22:00; Stop 08/26/19 at 21:59; Status DC Vecuronium [place] (Norcuron Bolus) 6 mg PRN Q6HRS PRN IV VENT ASYNCHRONY; Start 08/25/19 at 19:15; Stop 08/25/19 at 19:35; Status DC Bumetanide (Bumex) 2 mg 1X ONCE IV Last administered on 08/25/19at 22:09; Start 08/25/19 at 19:45; Stop 08/25/19 at 19:46; Status DC Lidocaine HCl (Buffered Lidocaine 1%) 3 ml STK-MED ONCE .ROUTE ; Start 08/26/19 at 07:59; Stop 08/26/19 at 07:59; Status DC Midazolam HCl (Versed) 5 mg STK-MED ONCE .ROUTE ; Start 08/26/19 at 08:36; Stop 08/26/19 at 08:36; Status DC Fentanyl Citrate (Fentanyl 5ml Vial) 250 mcg STK-MED ONCE .ROUTE ; Start 08/26/19 at 08:36; Stop 08/26/19 at 08:37; Status DC Lidocaine HCl (Buffered Lidocaine 1%) 3 ml 1X ONCE IJ Last administered on 08/26/19at 09:30; Start 08/26/19 at 09:15; Stop 08/26/19 at 09:16; Status DC Midazolam HCl (Versed) 5 mg 1X ONCE IV Last administered on 08/26/19at 09:30; Start 08/26/19 at 09:15; Stop 08/26/19 at 09:16; Status DC Fentanyl Citrate (Fentanyl 5ml Vial) 250 mcg 1X ONCE IV Last administered on 08/26/19at 09:30; Start 08/26/19 at 09:15; Stop 08/26/19 at 09:16; Status DC Bumetanide (Bumex) 2 mg DAILY IV Last administered on 09/05/19at 08:07; Start 08/26/19 at 10:00; Stop 09/05/19 at 17:15; Status DC Potassium Chloride 75 meq/ Magnesium Sulfate 15 meq/ Multivitamins 10 ml/Chromium/ Copper/Manganese/ Seleni/Zn 0.5 ml/ Insulin Human Regular 15 unit/ Total Parenteral Nutrition/Amino Acids/Dextrose/ Fat Emulsion Intravenous 1,920 ml @ 80 mls/hr TPN CONT IV Last administered on 08/26/19at 21:59; Start 08/26/19 at 22:00; Stop 08/27/19 at 21:59; Status DC Metoclopramide HCl (Reglan Vial) 10 mg PRN Q3HRS PRN IVP NAUSEA/VOMITING-3rd choice Last administered on 09/01/19at 04:25; Start 08/27/19 at 16:45 Potassium Chloride 75 meq/ Magnesium Sulfate 15 meq/ Multivitamins 10 ml/Chromium/ Copper/Manganese/ Seleni/Zn 0.5 ml/ Insulin Human Regular 15 unit/ Total Parenteral Nutrition/Amino Acids/Dextrose/ Fat Emulsion Intravenous 1,920 ml @ 80 mls/hr TPN CONT IV Last administered on 08/27/19at 22:41; Start 08/27/19 at 22:00; Stop 08/28/19 at 21:59; Status DC Magnesium Sulfate 50 ml @ 25 mls/hr 1X ONCE IV Last administered on 08/28/19at 10:44; Start 08/28/19 at 09:00; Stop 08/28/19 at 10:59; Status DC Potassium Chloride/Water 100 ml @ 100 mls/hr 1X ONCE IV Last administered on 08/28/19at 09:37; Start 08/28/19 at 09:00; Stop 08/28/19 at 09:59; Status DC Duloxetine HCl (Cymbalta) 30 mg DAILY PO Last administered on 08/29/19at 09:48; Start 08/28/19 at 14:00; Stop 08/31/19 at 10:25; Status DC Potassium Chloride 80 meq/ Magnesium Sulfate 20 meq/ Multivitamins 10 ml/Chromium/ Copper/Manganese/ Seleni/Zn 0.5 ml/ Insulin Human Regular 15 unit/ Total Parenteral Nutrition/Amino Acids/Dextrose/ Fat Emulsion Intravenous 1,920 ml @ 80 mls/hr TPN CONT IV Last administered on 08/28/19at 21:42; Start 08/28/19 at 22:00; Stop 08/29/19 at 21:59; Status DC Potassium Chloride 80 meq/ Magnesium Sulfate 20 meq/ Multivitamins 10 ml/Chromium/ Copper/Manganese/ Seleni/Zn 0.5 ml/ Insulin Human Regular 15 unit/ Total Parenteral Nutrition/Amino Acids/Dextrose/ Fat Emulsion Intravenous 1,920 ml @ 80 mls/hr TPN CONT IV Last administered on 08/29/19at 22:20; Start 08/29/19 at 22:00; Stop 08/30/19 at 21:59; Status DC Lidocaine HCl (Buffered Lidocaine 1%) 3 ml STK-MED ONCE .ROUTE ; Start 08/30/19 at 09:54; Stop 08/30/19 at 09:55; Status DC Hydromorphone HCl (Dilaudid Standard [employer]) 12 mg STK-MED ONCE IV ; Start 08/19/19 at 15:50; Stop 08/30/19 at 11:24; Status DC Potassium Chloride 80 meq/ Magnesium Sulfate 20 meq/ Multivitamins 10 ml/Chromium/ Copper/Manganese/ Seleni/Zn 0.5 ml/ Insulin Human Regular 15 unit/ Total Parenteral Nutrition/Amino Acids/Dextrose/ Fat Emulsion Intravenous 1,920 ml @ 80 mls/hr TPN CONT IV Last administered on 08/30/19at 21:40; Start 08/30/19 at 22:00; Stop 08/31/19 at 21:59; Status DC Lidocaine HCl (Buffered Lidocaine 1%) 6 ml 1X ONCE INJ Last administered on 08/30/19at 14:15; Start 08/30/19 at 14:15; Stop 08/30/19 at 14:16; Status DC Potassium Chloride 80 meq/ Magnesium Sulfate 20 meq/ Multivitamins 10 ml/Chromium/ Copper/Manganese/ Seleni/Zn 1 ml/ Insulin Human Regular 15 unit/ Total Parenteral Nutrition/Amino Acids/Dextrose/ Fat Emulsion Intravenous 1,920 ml @ 80 mls/hr TPN CONT IV Last administered on 08/31/19at 22:04; Start 08/31/19 at 22:00; Stop 09/01/19 at 21:59; Status DC Potassium Chloride/Water 100 ml @ 100 mls/hr 1X ONCE IV Last administered on 09/01/19at 11:34; Start 09/01/19 at 11:00; Stop 09/01/19 at 11:59; Status DC Potassium Chloride 90 meq/ Magnesium Sulfate 20 meq/ Multivitamins 10 ml/Chromium/ Copper/Manganese/ Seleni/Zn 1 ml/ Insulin Human Regular 15 unit/ Total Parenteral Nutrition/Amino Acids/Dextrose/ Fat Emulsion Intravenous 1,920 ml @ 80 mls/hr TPN CONT IV Last administered on 09/01/19at 22:57; Start 09/01/19 at 22:00; Stop 09/02/19 at 21:59; Status DC Potassium Chloride 90 meq/ Magnesium Sulfate 20 meq/ Multivitamins 10 ml/Chromium/ Copper/Manganese/ Seleni/Zn 1 ml/ Insulin Human Regular 15 unit/ Total Parenteral Nutrition/Amino Acids/Dextrose/ Fat Emulsion Intravenous 1,920 ml @ 80 mls/hr TPN CONT IV Last administered on 09/02/19at 22:48; Start 09/02/19 at 22:00; Stop 09/03/19 at 21:59; Status DC Potassium Chloride 90 meq/ Magnesium Sulfate 20 meq/ Multivitamins 10 ml/Chromium/ Copper/Manganese/ Seleni/Zn 1 ml/ Insulin Human Regular 15 unit/ Total Parenteral Nutrition/Amino Acids/Dextrose/ Fat Emulsion Intravenous 1,890 ml @ 78.75 mls/ hr TPN CONT IV Last administered on 09/03/19at 22:15; Start 09/03/19 at 22:00; Stop 09/04/19 at 21:59; Status DC Linezolid/Dextrose 300 ml @ 300 mls/hr Q12HR IV Last administered on 09/06/19at 21:08; Start 09/04/19 at 09:00; Stop 09/07/19 at 08:11; Status DC Daptomycin 450 mg/ Sodium Chloride 50 ml @ 100 mls/hr Q24H IV Last administered on 09/07/19at 09:25; Start 09/04/19 at 09:00; Stop 09/08/19 at 08:30; Status DC Potassium Chloride 90 meq/ Magnesium Sulfate 20 meq/ Multivitamins 10 ml/Chromium/ Copper/Manganese/ Seleni/Zn 1 ml/ Insulin Human Regular 15 unit/ Total Parenteral Nutrition/Amino Acids/Dextrose/ Fat Emulsion Intravenous 1,890 ml @ 78.75 mls/ hr TPN CONT IV Last administered on 09/04/19at 21:34; Start 09/04/19 at 22:00; Stop 09/05/19 at 21:59; Status DC Lorazepam (Ativan Inj) 2 mg STK-MED ONCE .ROUTE ; Start 09/04/19 at 14:58; Stop 09/04/19 at 14:58; Status DC Metoprolol Tartrate (Lopressor Vial) 5 mg 1X ONCE IVP Last administered on 09/04/19at 15:31; Start 09/04/19 at 15:15; Stop 09/04/19 at 15:16; Status DC Lorazepam (Ativan Inj) 2 mg 1X ONCE IVP Last administered on 09/04/19at 15:30; Start 09/04/19 at 15:15; Stop 09/04/19 at 15:16; Status DC Enoxaparin Sodium (Lovenox 40mg Syringe) 40 mg Q24H SQ Last administered on 09/23/19at 17:44; Start 09/04/19 at 17:00; Stop 09/25/19 at 06:50; Status DC Lorazepam (Ativan Inj) 1 mg PRN Q4HRS PRN IVP ANXIETY / AGITATION MILD-MOD Last administered on 09/18/19at 15:55; Start 09/04/19 at 19:15; Stop 09/20/19 at 11:45; Status DC Lorazepam (Ativan Inj) 2 mg PRN Q4HRS PRN IVP ANXIETY / AGITATION SEVERE Last administered on 09/19/19at 07:55; Start 09/04/19 at 19:15; Stop 09/20/19 at 11:45; Status DC Fentanyl Citrate (Fentanyl 2ml Vial) 50 mcg PRN Q4HRS PRN IVP SEVERE PAIN Last administered on 10/01/19at 05:15; Start 09/05/19 at 13:15; Stop 10/02/19 at 09:29; Status DC Fentanyl Citrate (Fentanyl 2ml Vial) 25 mcg PRN Q4HRS PRN IVP MODERATE PAIN Last administered on 10/01/19at 00:27; Start 09/05/19 at 13:15; Stop 10/02/19 at 09:30; Status DC Potassium Chloride 90 meq/ Magnesium Sulfate 20 meq/ Multivitamins 10 ml /Chromium/ Copper/Manganese/ Seleni/Zn 1 ml/ Insulin Human Regular 15 unit/ Total Parenteral Nutrition/Amino Acids/Dextrose/ Fat Emulsion Intravenous 1,890 ml @ 78.75 mls/ hr TPN CONT IV Last administered on 09/05/19at 22:18; Start 09/05/19 at 22:00; Stop 09/06/19 at 21:59; Status DC Furosemide (Lasix) 40 mg 1X ONCE IVP Last administered on 09/05/19at 21:51; Start 09/05/19 at 21:45; Stop 09/05/19 at 21:48; Status DC Albumin Human 100 ml @ 100 mls/hr 1X PRN PRN IV SEE COMMENTS; Start 09/06/19 at 01:30 Furosemide (Lasix) 40 mg [id number] IVP Last administered on 09/21/19at 08:04; Start 09/06/19 at 14:00; Stop 09/21/19 at 13:07; Status DC Potassium Chloride 90 meq/ Magnesium Sulfate 20 meq/ Multivitamins 10 ml/Chromium/ Copper/Manganese/ Seleni/Zn 1 ml/ Insulin Human Regular 15 unit/ Total Parenteral Nutrition/Amino Acids/Dextrose/ Fat Emulsion Intravenous 1,800 ml @ 75 mls/hr TPN CONT IV Last administered on 09/06/19at 22:31; Start 09/06/19 at 22:00; Stop 09/07/19 at 21:59; Status DC Potassium Chloride 90 meq/ Magnesium Sulfate 20 meq/ Multivitamins 10 ml/Chromium/ Copper/Manganese/ Seleni/Zn 1 ml/ Insulin Human Regular 15 unit/ Total Parenteral Nutrition/Amino Acids/Dextrose/ Fat Emulsion Intravenous 1,800 ml @ 75 mls/hr TPN CONT IV Last administered on 09/07/19at 22:28; Start 09/07/19 at 22:00; Stop 09/08/19 at 21:59; Status DC Potassium Chloride 110 meq/ Magnesium Sulfate 20 meq/ Multivitamins 10 ml/Chromium/ Copper/Manganese/ Seleni/Zn 1 ml/ Insulin Human Regular 15 unit/ Total Parenteral Nutrition/Amino Acids/Dextrose/ Fat Emulsion Intravenous 1,800 ml @ 75 mls/hr TPN CONT IV Last administered on 09/08/19at 22:01; Start 08/19 05/09 at 22:00; Stop 09/09/19 at 21:59; Status DC Saliva Substitute (Biotene Moisturizing Mouth) 2 spray PRN Q15MIN PRN PO DRY MOUTH; Start 09/08/19 at 11:00 Potassium Chloride 110 meq/ Magnesium Sulfate 20 meq/ Multivitamins 10 ml/Chromium/ Copper/Manganese/ Seleni/Zn 1 ml/ Insulin Human Regular 15 unit/ Total Parenteral Nutrition/Amino Acids/Dextrose/ Fat Emulsion Intravenous 1,800 ml @ 75 mls/hr TPN CONT IV Last administered on 09/09/19at 22:21; Start 09/09/19 at 22:00; Stop 09/10/19 at 21:59; Status DC Potassium Chloride 110 meq/ Magnesium Sulfate 20 meq/ Multivitamins 10 ml/Chromium/ Copper/Manganese/ Seleni/Zn 1 ml/ Insulin Human Regular 15 unit/ Total Parenteral Nutrition/Amino Acids/Dextrose/ Fat Emulsion Intravenous 1,800 ml @ 75 mls/hr TPN CONT IV Last administered on 09/10/19at 22:04; Start 09/10/19 at 22:00; Stop 09/11/19 at 21:59; Status DC Potassium Chloride 110 meq/ Magnesium Sulfate 20 meq/ Multivitamins 10 ml/Chromium/ Copper/Manganese/ Seleni/Zn 1 ml/ Insulin Human Regular 15 unit/ To anthony Parenteral Nutrition/Amino Acids/Dextrose/ Fat Emulsion Intravenous 1,800 ml @ 75 mls/hr TPN CONT IV Last administered on 09/11/19at 22:48; Start 09/11/19 at 22:00; Stop 09/12/19 at 21:59; Status DC Potassium Chloride 70 meq/ Magnesium Sulfate 20 meq/ Multivitamins 10 ml/Chromium/ Copper/Manganese/ Seleni/Zn 1 ml/ Insulin Human Regular 15 unit/ Total Parenteral Nutrition/Amino Acids/Dextrose/ Fat Emulsion Intravenous 1,800 ml @ 75 mls/hr TPN CONT IV Last administered on 09/12/19at 21:39; Start 08/19 09/06 at 22:00; Stop 09/13/19 at 21:59; Status DC Meropenem 500 mg/ Sodium Chloride 50 ml @ 100 mls/hr Q6HRS IV Last administe red on 09/14/19at 06:02; Start 09/12/19 at 18:00; Stop 09/14/19 at 09:59; Status DC Barium Sulfate (Varibar Thin Liquid Apple) 148 gm 1X ONCE PO ; Start 09/13/19 at 11:45; Stop 09/13/19 at 11:49; Status DC Potassium Chloride 70 meq/ Magnesium Sulfate 20 meq/ Multivitamins 10 ml/Chromium/ Copper/Manganese/ Seleni/Zn 1 ml/ Insulin Human Regular 15 unit/ Total Parenteral Nutrition/Amino Acids/Dextrose/ Fat Emulsion Intravenous 1,800 ml @ 75 mls/hr TPN CONT IV Last administered on 09/13/19at 22:27; Start at 22:00; Stop 09/14/19 at 21:59; Status DC Piperacillin Sod/ Tazobactam Sod 3.375 gm/Sodium Chloride 50 ml @ 100 mls/hr Q6HRS IV Last administered on 09/22/19at 06:10; Start 09/14/19 at 12:00; Stop 09/22/19 at 07:26; Status DC Potassium Chloride 70 meq/ Magnesium Sulfate 20 meq/ Multivitamins 10 ml/Chromium/ Copper/Manganese/ Seleni/Zn 1 ml/ Insulin Human Regular 15 unit/ Total Parenteral Nutrition/Amino Acids/Dextrose/ Fat Emulsion Intravenous 1,800 ml @ 75 mls/hr TPN CONT IV Last administered on 09/14/19at 22:03; Start 09/14/19 at 22:00; Stop 09/15/19 at 21:59; Status DC Potassium Chloride 70 meq/ Magnesium Sulfate 20 meq/ Multivitamins 10 ml/Chromium/ Copper/Manganese/ Seleni/Zn 1 ml/ Insulin Human Regular 15 unit/ Total Parenteral Nutrition/Amino Acids/Dextrose/ Fat Emulsion Intravenous 1,800 ml @ 75 mls/hr TPN CONT IV Last administered on 09/15/19at 22:33; Start at 22:00; Stop 09/16/19 at 21:59; Status DC Potassium Chloride 70 meq/ Magnesium Sulfate 20 meq/ Multivitamins 10 ml/Chr omium/ Copper/Manganese/ Seleni/Zn 1 ml/ Insulin Human Regular 15 unit/ Total Parenteral Nutrition/Amino Acids/Dextrose/ Fat Emulsion Intravenous 1,800 ml @ 75 mls/hr TPN CONT IV Last administered on 09/16/19at 23:13; Start 09/16/19 at 22:00; Stop 09/17/19 at 21:59; Status DC Potassium Chloride 80 meq/ Magnesium Sulfate 20 meq/ Multivitamins 10 ml/Chromium/ Copper/Manganese/ Seleni/Zn 1 ml/ Insulin Human Regular 15 unit/ Total Parenteral Nutrition/Amino Acids/Dextrose/ Fat Emulsion Intravenous 1,800 ml @ 75 mls/hr TPN CONT IV Last administered on 09/17/19at 22:30; Start 09/17/19 at 22:00; Stop 09/18/19 at 21:59; Status DC Potassium Chloride 80 meq/ Magnesium Sulfate 20 meq/ Multivitamins 10 ml/Chromium/ Copper/Manganese/ Seleni/Zn 1 ml/ Insulin Human Regular 15 unit/ Total Parenteral Nutrition/Amino Acids/Dextrose/ Fat Emulsion Intravenous 1,800 ml @ 75 mls/hr TPN CONT IV Last administered on 09/18/19at 21:54; Start 09/18/19 at 22:00; Stop 09/19/19 at 21:59; Status DC Potassium Chloride/Water 100 ml @ 100 mls/hr 1X ONCE IV Last administered on 09/19/19at 10:15; Start 09/19/19 at 10:00; Stop 09/19/19 at 10:59; Status DC Potassium Chloride 90 meq/ Magnesium Sulfate 20 meq/ Multivitamins 10 ml/Chromium/ Copper/Manganese/ Seleni/Zn 1 ml/ Insulin Human Regular 20 unit/ Total Parenteral Nutrition/Amino Acids/Dextrose/ Fat Emulsion Intravenous 1,800 ml @ 75 mls/hr TPN CONT IV Last administered on 09/19/19at 22:28; Start 09/19/19 at 22:00; Stop 09/20/19 at 21:59; Status DC Potassium Chloride 90 meq/ Magnesium Sulfate 20 meq/ Multivitamins 10 ml/Chromium/ Copper/Manganese/ Seleni/Zn 1 ml/ Insulin Human Regular 20 unit/ Total Parenteral Nutrition/Amino Acids/Dextrose/ Fat Emulsion Intravenous 1,800 ml @ 75 mls/hr TPN CONT IV Last administered on 09/20/19at 22:08; Start 09/20/19 at 22:00; Stop 09/21/19 at 21:59; Status DC Lorazepam (Ativan Inj) 0.25 mg PRN Q4HRS PRN IVP ANXIETY / AGITATION Last administered on 10/15/19at 13:37; Start 09/21/19 at 07:30 Potassium Chloride 90 meq/ Magnesium Sulfate 20 meq/ Multivitamins 10 ml/Chromium/ Copper/Manganese/ Seleni/Zn 1 ml/ Insulin Human Regular 20 unit/ Total Parenteral Nutrition/Amino Acids/Dextrose/ Fat Emulsion Intravenous 1,800 ml @ 75 mls/hr TPN CONT IV Last administered on 09/21/19at 23:13; Start 09/21/19 at 22:00; Stop 09/22/19 at 21:59; Status DC Furosemide (Lasix) 40 mg DAILY IVP Last administered on 09/23/19at 11:14; Start 09/21/19 at 13:30; Stop 09/25/19 at 09:12; Status DC Fluoxetine HCl (PROzac) 20 mg QHS PEG Last administered on 10/15/19at 21:52; Start 09/22/19 at 21:00 Fentanyl (Duragesic 50mcg/ Hr Patch) 1 patch Q72H TD Last administered on 09/22/19at 21:22; Start 09/22/19 at 21:00; Stop 10/01/19 at 12:00; Status DC Potassium Chloride 40 meq/ Potassium Acetate 60 meq/Magnesium Sulfate 10 meq/ Multivitamins 10 ml/Chromium/ Copper/Manganese/ Seleni/Zn 1 ml/ Insulin Human Regular 20 unit/ Total Parenteral Nutrition/Amino Acids/Dextrose/ Fat Emulsion Intravenous 1,800 ml @ 75 mls/hr TPN CONT IV Last administered on 09/23/19at 00:03; Start 09/22/19 at 22:00; Stop 09/23/19 at 21:59; Status DC Potassium Acetate 80 meq/Magnesium Sulfate 5 meq/ Multivitamins 10 ml/Chromium/ Copper/Manganese/ Seleni/Zn 1 ml/ Insulin Human Regular 20 unit/ Total Parenteral Nutrition/Amino Acids/Dextrose/ Fat Emulsion Intravenous 1,920 ml @ 80 mls/hr TPN CONT IV Last administered on 09/23/19at 21:59; Start 09/23/19 at 22:00; Stop 09/24/19 at 21:59; Status DC Potassium Acetate 60 meq/Magnesium Sulfate 5 meq/ Multivitamins 10 ml/Chromium/ Copper/Manganese/ Seleni/Zn 1 ml/ Insulin Human Regular 30 unit/ Total Parenteral Nutrition/Amino Acids/Dextrose/ Fat Emulsion Intravenous 1,920 ml @ 80 mls/hr TPN CONT IV Last administered on 09/24/19at 21:54; Start 09/24/19 at 22:00; Stop 09/25/19 at 21:59; Status DC Norepinephrine Bitartrate 8 mg/ Dextrose 258 ml @ 13.332 mls/ hr CONT PRN IV PER PROTOCOL Last administered on 09/25/19at 21:46; Start 09/25/19 at 06:30 Albumin Human 500 ml @ 125 mls/hr 1X ONCE IV Last administered on 09/25/19at 08:10; Start 09/25/19 at 08:15; Stop 09/25/19 at 12:14; Status DC Potassium Acetate 40 meq/Magnesium Sulfate 5 meq/ Multivitamins 10 ml/Chromium/ Copper/Manganese/ Seleni/Zn 1 ml/ Insulin Human Regular 30 unit/ Total Parenteral Nutrition/Amino Acids/Dextrose/ Fat Emulsion Intravenous 1,920 ml @ 80 mls/hr TPN CONT IV Last administered on 09/25/19at 22:23; Start 09/25/19 at 22:00; Stop 09/26/19 at 21:59; Status DC Meropenem 1 gm/ Sodium Chloride 100 ml @ 200 mls/hr Q8HRS IV ; Start 09/25/19 at 14:00; Status Cancel Meropenem 1 gm/ Sodium Chloride 100 ml @ 200 mls/hr Q8HRS IV Last administered on 09/25/19at 11:04; Start 09/25/19 at 10:00; Stop 09/25/19 at 13:00; Status DC Meropenem 1 gm/ Sodium Chloride 100 ml @ 200 mls/hr Q12HR IV Last administered on 10/13/19at 08:27; Start 09/25/19 at 21:00; Stop 10/13/19 at 08:56; Status DC Sodium Chloride 1,000 ml @ 1,000 mls/hr 1X ONCE IV Last administered on 09/25/19at 11:06; Start 09/25/19 at 10:45; Stop 09/25/19 at 11:44; Status DC Micafungin Sodium 100 mg/Dextrose 100 ml @ 100 mls/hr Q24H IV Last administered on 10/12/19at 12:34; Start 09/25/19 at 11:00; Stop 10/13/19 at 08:56; Status DC Daptomycin 410 mg/ Sodium Chloride 50 ml @ 100 mls/hr Q24H IV Last administe red on 09/27/19at 13:33; Start 09/25/19 at 14:00; Stop 09/28/19 at 08:30; Status DC Midazolam HCl (Versed) 2 mg STK-MED ONCE .ROUTE ; Start 09/25/19 at 14:47; Stop 09/25/19 at 14:48; Status DC Fentanyl Citrate (Fentanyl 2ml Vial) 100 mcg STK-MED ONCE .ROUTE ; Start 09/25/19 at 14:47; Stop 09/25/19 at 14:48; Status DC Flumazenil (Romazicon) 0.5 mg STK-MED ONCE IV ; Start 09/25/19 at 14:48; Stop 09/25/19 at 14:48; Status DC Naloxone HCl (Narcan) 0.4 mg STK-MED ONCE .ROUTE ; Start 09/25/19 at 14:48; Stop 09/25/19 at 14:48; Status DC Lidocaine HCl (Lidocaine 1% 20ml Vial) 20 ml STK-MED ONCE .ROUTE ; Start 09/25/19 at 14:48; Stop 09/25/19 at 14:48; Status DC Midazolam HCl (Versed) 2 mg 1X ONCE IV Last administered on 09/25/19at 15:28; Start 09/25/19 at 15:00; Stop 09/25/19 at 15:01; Status DC Fentanyl Citrate (Fentanyl 2ml Vial) 100 mcg 1X ONCE IV Last administered on 09/25/19at 15:28; Start 09/25/19 at 15:00; Stop 09/25/19 at 15:01; Status DC Lidocaine HCl (Lidocaine 1% 20ml Vial) 20 ml 1X ONCE INJ Last administered on 09/25/19at 15:30; Start 09/25/19 at 15:00; Stop 09/25/19 at 15:01; Status DC Sodium Chloride 1,000 ml @ 100 mls/hr Q10H IV Last administered on 10/04/19at 07:30; Start 09/25/19 at 20:00; Stop 10/04/19 at 11:26; Status DC Sodium Bicarbonate (Sodium Bicarb Adult 8.4% Syr) 50 meq 1X ONCE IV Last administered on 09/25/19at 21:47; Start 09/25/19 at 22:00; Stop 09/25/19 at 22:01; Status DC Potassium Acetate 40 meq/Magnesium Sulfate 5 meq/ Multivitamins 10 ml/Chromium/ Copper/Manganese/ Seleni/Zn 1 ml/ Insulin Human Regular 30 unit/ Total Parenteral Nutrition/Amino Acids/Dextrose/ Fat Emulsion Intravenous 1,920 ml @ 80 mls/hr TPN CONT IV Last administered on 09/26/19at 22:28; Start 09/26/19 at 22:00; Stop 09/27/19 at 21:59; Status DC Sodium Chloride 500 ml @ 500 mls/hr 1X ONCE IV Last administered on 09/27/19at 06:39; Start 09/27/19 at 06:45; Stop 09/27/19 at 07:44; Status DC Potassium Acetate 40 meq/Magnesium Sulfate 5 meq/ Multivitamins 10 ml/Chromium/ Copper/Manganese/ Seleni/Zn 1 ml/ Insulin Human Regular 30 unit/ Total Parenteral Nutrition/Amino Acids/Dextrose/ Fat Emulsion Intravenous 1,920 ml @ 80 mls/hr TPN CONT IV Last administered on 09/27/19at 22:03; Start 09/27/19 at 22:00; Stop 09/28/19 at 21:59; Status DC Metoprolol Tartrate (Lopressor Vial) 5 mg PRN Q6HRS PRN IVP HYPERTENSION Last administered on 10/06/19at 10:14; Start 09/28/19 at 09:00 Potassium Acetate 40 meq/Magnesium Sulfate 5 meq/ Multivitamins 10 ml/Chromium/ Copper/Manganese/ Seleni/Zn 1 ml/ Insulin Human Regular 30 unit/ Total Parenteral Nutrition/Amino Acids/Dextrose/ Fat Emulsion Intravenous 1,920 ml @ 80 mls/hr TPN CONT IV Last administered on 09/28/19at 21:26; Start 09/28/19 at 22:00; Stop 09/29/19 at 21:59; Status DC Potassium Acetate 40 meq/Magnesium Sulfate 5 meq/ Multivitamins 10 ml/Chromium/ Copper/Manganese/ Seleni/Zn 1 ml/ Insulin Human Regular 30 unit/ Total Parenteral Nutrition/Amino Acids/Dextrose/ Fat Emulsion Intravenous 1,920 ml @ 80 mls/hr TPN CONT IV Last administered on 09/29/19at 23:23; Start 09/29/19 at 22:00; Stop 09/30/19 at 21:59; Status DC Potassium Acetate 40 meq/Magnesium Sulfate 5 meq/ Multivitamins 10 ml/Chromium/ Copper/Manganese/ Seleni/Zn 1 ml/ Insulin Human Regular 30 unit/ Total Parenteral Nutrition/Amino Acids/Dextrose/ Fat Emulsion Intravenous 1,920 ml @ 80 mls/hr TPN CONT IV Last administered on 09/30/19at 21:35; Start 09/30/19 at 22:00; Stop 10/01/19 at 21:59; Status DC Furosemide (Lasix) 20 mg 1X ONCE IVP Last administered on 10/01/19at 06:26; Start 10/01/19 at 06:15; Stop 10/01/19 at 06:16; Status DC Methylprednisolone Sodium Succinate (SOLU-Medrol 125MG VIAL) 125 mg 1X ONCE IV Last administered on 10/01/19at 06:26; Start 10/01/19 at 06:15; Stop 10/01/19 at 06:16; Status DC Albuterol/ Ipratropium (Duoneb) 3 ml Q4HRS NEB Last administered on 10/17/19at 08:32; Start 10/01/19 at 08:00 Fentanyl Citrate 30 ml @ 0 mls/hr CONT PRN IV SEE PROTOCOL Last administered on 10/15/19at 23:26; Start 10/01/19 at 06:00 Propofol 100 ml @ 0 mls/hr CONT PRN IV SEE PROTOCOL Last administered on 10/08/19at 23:50; Start 10/01/19 at 06:00 Fentanyl Citrate (Fentanyl 2ml Vial) 25 mcg PRN Q1HR PRN IV SEE COMMENTS; Start 10/01/19 at 06:00 Fentanyl Citrate (Fentanyl 2ml Vial) 50 mcg PRN Q1HR PRN IV SEE COMMENTS; Start 10/01/19 at 06:00 Chlorhexidine Gluconate (Peridex) 15 ml BID MM ; Start 10/01/19 at 09:00; Stop 10/01/19 at 07:58; Status DC Potassium Acetate 40 meq/Magnesium Sulfate 5 meq/ Multivitamins 10 ml/Chromium/ Copper/Manganese/ Seleni/Zn 1 ml/ Insulin Human Regular 30 unit/ Total Parenteral Nutrition/Amino Acids/Dextrose/ Fat Emulsion Intravenous 1,920 ml @ 80 mls/hr TPN CONT IV Last administered on 10/01/19at 21:19; Start 10/01/19 at 22:00; Stop 10/02/19 at 21:59; Status DC Acetylcysteine (Mucomyst 20% Resp Treatment) 600 mg BID NEB Last administered on 10/07/19at 09:33; Start 10/01/19 at 21:00; Stop 10/07/19 at 10:39; Status DC Magnesium Sulfate 100 ml @ 25 mls/hr 1X ONCE IV Last administered on 10/01/19at 15:48; Start 10/01/19 at 15:45; Stop 10/01/19 at 19:44; Status DC Potassium Acetate 40 meq/Magnesium Sulfate 5 meq/ Multivitamins 10 ml/Chromium/ Copper/Manganese/ Seleni/Zn 1 ml/ Insulin Human Regular 30 unit/ Total Parenteral Nutrition/Amino Acids/Dextrose/ Fat Emulsion Intravenous 1,920 ml @ 80 mls/hr TPN CONT IV Last administered on 10/02/19at 21:35; Start 10/02/19 at 22:00; Stop 10/03/19 at 21:59; Status DC Potassium Chloride/Water 100 ml @ 100 mls/hr Q1H IV Last administered on 10/03/19at 08:31; Start 10/03/19 at 07:00; Stop 10/03/19 at 08:59; Status DC Potassium Acetate 40 meq/Magnesium Sulfate 5 meq/ Multivitamins 10 ml/Chromium/ Copper/Manganese/ Seleni/Zn 1 ml/ Insulin Human Regular 30 unit/ Total Parenteral Nutrition/Amino Acids/Dextrose/ Fat Emulsion Intravenous 1,920 ml @ 80 mls/hr TPN CONT IV Last administered on 10/03/19at 21:54; Start 10/03/19 at 22:00; Stop 10/04/19 at 19:34; Status DC Lidocaine HCl (Buffered Lidocaine 1%) 3 ml STK-MED ONCE .ROUTE ; Start 10/03/19 at 12:14; Stop 10/03/19 at 12:14; Status DC Lidocaine HCl (Buffered Lidocaine 1%) 3 ml 1X ONCE IJ Last administered on 10/03/19at 13:11; Start 10/03/19 at 13:00; Stop 10/03/19 at 13:01; Status DC Magnesium Sulfate 50 ml @ 25 mls/hr 1X ONCE IV ; Start 10/04/19 at 08:15; Stop 10/04/19 at 10:14; Status DC Potassium Acetate 40 meq/Magnesium Sulfate 10 meq/ Multivitamins 10 ml/Chromium/ Copper/Manganese/ Seleni/Zn 1 ml/ Insulin Human Regular 20 unit/ Total Parenteral Nutrition/Amino Acids/Dextrose/ Fat Emulsion Intravenous 1,920 ml @ 80 mls/hr TPN CONT IV Last administered on 10/04/19at 21:32; Start 10/04/19 at 22:00; Stop 10/05/19 at 21:59; Status DC Potassium Chloride/Water 100 ml @ 100 mls/hr Q1H IV Last administered on 10/05/19at 09:12; Start 10/05/19 at 08:00; Stop 10/05/19 at 09:59; Status DC Alteplase, Recombinant (Cathflo For Central Catheter Clearance) 4 mg 1X ONCE I NT CAT ; Start 10/05/19 at 09:15; Stop 10/05/19 at 09:16; Status UNV Alteplase, Recombinant (Cathflo For Central Catheter Clearance) 4 mg 1X ONCE INT CAT ; Start 10/05/19 at 09:15; Stop 10/05/19 at 09:16; Status UNV Alteplase, Recombinant (Cathflo For Central Catheter Clearance) 4 mg 1X ONCE INT CAT ; Start 10/05/19 at 09:15; Stop 10/05/19 at 09:16; Status UNV Alteplase, Recombinant 4 mg/ Sodium Chloride 20 ml @ 20 mls/hr 1X ONCE IV Last administered on 10/05/19at 10:10; Start 10/05/19 at 10:00; Stop 10/05/19 at 10:59; Status DC Alteplase, Recombinant 4 mg/ Sodium Chloride 20 ml @ 20 mls/hr 1X ONCE IV Last administered on 10/05/19at 10:09; Start 10/05/19 at 10:00; Stop 10/05/19 at 10:59; Status DC Alteplase, Recombinant 4 mg/ Sodium Chloride 20 ml @ 20 mls/hr 1X ONCE IV Last administered on 10/05/19at 10:09; Start 10/05/19 at 10:00; Stop 10/05/19 at 10:59; Status DC Potassium Acetate 60 meq/Magnesium Sulfate 10 meq/ Multivitamins 10 ml/Chromium/ Copper/Manganese/ Seleni/Zn 1 ml/ Insulin Human Regular 20 unit/ Total Parenteral Nutrition/Amino Acids/Dextrose/ Fat Emulsion Intravenous 1,920 ml @ 80 mls/hr TPN CONT IV Last administered on 10/05/19at 21:55; Start 10/05/19 at 22:00; Stop 10/06/19 at 21:59; Status DC Albumin Human 500 ml @ 125 mls/hr 1X ONCE IV Last administered on 10/06/19at 12:01; Start 10/06/19 at 11:15; Stop 10/06/19 at 15:14; Status DC Sodium Chloride 500 ml @ 500 mls/hr 1X ONCE IV Last administered on 10/06/19at 13:50; Start 10/06/19 at 11:15; Stop 10/06/19 at 12:14; Status DC Potassium Acetate 60 meq/Magnesium Sulfate 14 meq/ Multivitamins 10 ml/Chromium/ Copper/Manganese/ Seleni/Zn 1 ml/ Insulin Human Regular 20 unit/ Total Parenteral Nutrition/Amino Acids/Dextrose/ Fat Emulsion Intravenous 1,920 ml @ 80 mls/hr TPN CONT IV Last administered on 10/06/19at 22:26; Start 10/06/19 at 22:00; Stop 10/07/19 at 21:59; Status DC Ciprofloxacin/ Dextrose 200 ml @ 200 mls/hr Q12HR IV Last administered on 10/13/19at 08:27; Start 10/06/19 at 21:00; Stop 10/13/19 at 08:56; Status DC Albumin Human 250 ml @ 62.5 mls/hr 1X ONCE IV Last administered on 10/07/19at 11:09; Start 10/07/19 at 11:00; Stop 10/07/19 at 14:59; Status DC Furosemide (Lasix) 20 mg 1X ONCE IVP Last administered on 10/07/19at 14:52; Start 10/07/19 at 10:45; Stop 10/07/19 at 10:49; Status DC Potassium Acetate 60 meq/Magnesium Sulfate 14 meq/ Multivitamins 10 ml/Chromium/ Copper/Manganese/ Seleni/Zn 1 ml/ Insulin Human Regular 15 unit/ Total Parenteral Nutrition/Amino Acids/Dextrose/ Fat Emulsion Intravenous 1,920 ml @ 80 mls/hr TPN CONT IV Last administered on 10/07/19at 22:08; Start 10/07/19 at 22:00; Stop 10/08/19 at 21:59; Status DC Potassium Acetate 60 meq/Magnesium Sulfate 14 meq/ Multivitamins 10 ml/Chromium/ Copper/Manganese/ Seleni/Zn 1 ml/ Insulin Human Regular 15 unit/ Total Parenteral Nutrition/Amino Acids/Dextrose/ Fat Emulsion Intravenous 1,920 ml @ 80 mls/hr TPN CONT IV Last administered on 10/08/19at 22:12; Start 10/08/19 at 22:00; Stop 10/09/19 at 21:59; Status DC Potassium Acetate 60 meq/Magnesium Sulfate 14 meq/ Multivitamins 10 ml/Chromium/ Copper/Manganese/ Seleni/Zn 1 ml/ Insulin Human Regular 15 unit/ Total Parenteral Nutrition/Amino Acids/Dextrose/ Fat Emulsion Intravenous 1,920 ml @ 80 mls/hr TPN CONT IV Last administered on 10/09/19at 22:22; Start 10/09/19 at 22:00; Stop 10/10/19 at 21:59; Status DC Furosemide (Lasix) 20 mg 1X ONCE IVP Last administered on 10/10/19at 11:07; Start 10/10/19 at 10:30; Stop 10/10/19 at 10:34; Status DC Potassium Acetate 60 meq/Magnesium Sulfate 14 meq/ Multivitamins 10 ml/Chromium/ Copper/Manganese/ Seleni/Zn 1 ml/ Insulin Human Regular 15 unit/ Sodium Chloride 20 meq/Total Parenteral Nutrition/Amino Acids/Dextrose/ Fat Emulsion Intravenous 1,920 ml @ 80 mls/hr TPN CONT IV Last administered on 10/10/19at 21:54; Start 10/10/19 at 22:00; Stop 10/11/19 at 21:59; Status DC Potassium Acetate 30 meq/Magnesium Sulfate 14 meq/ Multivitamins 10 ml/Chromium/ Copper/Manganese/ Seleni/Zn 1 ml/ Insulin Human Regular 15 unit/ Sodium Chloride 20 meq/Potassium Chloride 30 meq/ Total Parenteral Nutrition/Amino Acids/Dextrose/ Fat Emulsion Intravenous 1,920 ml @ 80 mls/hr TPN CONT IV Last administered on 10/11/19at 21:46; Start 10/11/19 at 22:00; Stop 10/12/19 at 21:59; Status DC Sodium Chloride 80 meq/Potassium Chloride 30 meq/ Potassium Acetate 30 meq/Magnesium Sulfate 14 meq/ Multivitamins 10 ml/Chromium/ Copper/Manganese/ Seleni/Zn 1 ml/ Insulin Human Regular 15 unit/ Total Parenteral Nutrition/Amino Acids/Dextrose/ Fat Emulsion Intravenous 1,920 ml @ 80 mls/hr TPN CONT IV Last administered on 10/12/19at 22:33; Start 10/12/19 at 22:00; Stop 10/13/19 at 21:59; Status DC Furosemide (Lasix) 40 mg 1X ONCE IVP Last administered on 10/12/19at 16:27; Start 10/12/19 at 15:30; Stop 10/12/19 at 15:33; Status DC Albumin Human 250 ml @ 62.5 mls/hr 1X ONCE IV Last administered on 10/12/19at 16:27; Start 10/12/19 at 15:30; Stop 10/12/19 at 19:29; Status DC Sodium Chloride 80 meq/Potassium Chloride 30 meq/ Potassium Acetate 30 meq/Magnesium Sulfate 14 meq/ Multivitamins 10 ml/Chromium/ Copper/Manganese/ Seleni/Zn 1 ml/ Insulin Human Regular 15 unit/ Total Parenteral Nutrition/Amino Acids/Dextrose/ Fat Emulsion Intravenous 1,920 ml @ 80 mls/hr TPN CONT IV Last administered on 10/13/19at 22:25; Start 10/13/19 at 22:00; Stop 10/14/19 at 21:59; Status DC Sodium Chloride 80 meq/Potassium Chloride 30 meq/ Potassium Acetate 30 meq/Magnesium Sulfate 14 meq/ Multivitamins 10 ml/Chromium/ Copper/Manganese/ Seleni/Zn 1 ml/ Insulin Human Regular 15 unit/ Total Parenteral Nutrition/Amino Acids/Dextrose/ Fat Emulsion Intravenous 1,920 ml @ 80 mls/hr TPN CONT IV Last administered on 10/14/19at 21:32; Start 10/14/19 at 22:00; Stop 10/15/19 at 21:59; Status DC Sodium Chloride 80 meq/Potassium Chloride 30 meq/ Potassium Acetate 30 meq/Magnesium Sulfate 14 meq/ Multivitamins 10 ml/Chromium/ Copper/Manganese/ Seleni/Zn 1 ml/ Insulin Human Regular 15 unit/ Total Parenteral Nutrition/Amino Acids/Dextrose/ Fat Emulsion Intravenous 1,920 ml @ 80 mls/hr TPN CONT IV Last administered on 10/15/19at 21:53; Start 10/15/19 at 22:00; Stop 10/16/19 at 21:59; Status DC Acetylcysteine (Mucomyst 20% Resp Treatment) 600 mg RTBID NEB Last administered on 10/16/19at 19:40; Start 10/15/19 at 12:00 Sodium Chloride 80 meq/Potassium Chloride 30 meq/ Potassium Acetate 30 meq/Magnesium Sulfate 14 meq/ Multivitamins 10 ml/Chromium/ Copper/Manganese/ Seleni/Zn 1 ml/ Insulin Human Regular 15 unit/ Total Parenteral Nutrition/Amino Acids/Dextrose/ Fat Emulsion Intravenous 1,920 ml @ 80 mls/hr TPN CONT IV Last administered on 10/16/19at 22:06; Start 10/16/19 at 22:00; Stop 10/17/19 at 21:59 Meropenem 500 mg/ Sodium Chloride 50 ml @ 100 mls/hr Q6HRS IV Last administered on 10/17/19at 05:54; Start 10/16/19 at 18:00 Daptomycin 500 mg/ Sodium Chloride 50 ml @ 100 mls/hr Q24H IV Last administered on 10/16/19at 20:03; Start 10/16/19 at 19:00 Active Scripts Active Reported Bisoprolol Fumarate 5 Mg Tablet 10 Mg PO DAILY Vitals/I & O Vital Sign - Last 24 Hours 10/16/19 10/16/19 10/16/19 10/16/19 10:00 11:00 11:58 12:00 Temp 98.9 98.9 Pulse 108 106 109 Resp B/P (MAP) 130/70 (90) 104/66 (79) 113/72 (86) Pulse Ox 100 100 100 O2 Delivery Tracheal Collar Tracheal Collar Trach Collar Tracheal Collar 10/16/19 10/16/19 10/16/19 10/16/19 12:15 13:00 14:00 15:00 Pulse 109 112 118 Resp B/P (MAP) 117/75 (89) 126/75 (92) 121/86 (98) Pulse Ox 100 100 100 100 O2 Delivery Tracheal Collar Tracheal Collar Tracheal Collar Tracheal Collar O2 Flow Rate 8.0 10/16/19 10/16/19 10/16/19 10/16/19 16:00 16:00 16:10 17:00 Temp 101.3 101.3 Pulse 122 127 Resp 24 26 B/P (MAP) 138/77 (97) 110/68 (82) Pulse Ox 100 98 100 O2 Delivery Trach Collar Tracheal Collar Tracheal Collar Tracheal Collar O2 Flow Rate 8.0 10/16/19 10/16/19 10/16/19 10/16/19 18:00 19:00 19:40 20:00 Temp 101.4 101.4 Pulse 128 132 134 Resp 28 30 31 B/P (MAP) 119/69 (86) 129/80 (96) 133/60 (84) Pulse Ox 100 97 96 93 O2 Delivery Tracheal Collar Tracheal Collar Tracheal Collar Tracheal Collar O2 Flow Rate 8.0 10/16/19 10/16/19 10/16/19 10/16/19 20:00 21:00 22:00 23:00 Pulse 140 130 120 Resp 48 27 30 B/P (MAP) 133/81 (98) 122/58 (79) 120/59 (79) Pulse Ox 95 95 92 O2 Delivery Trach Collar Tracheal Collar Tracheal Collar Tracheal Collar O2 Flow Rate 8.0 10/17/19 10/17/19 10/17/19 10/17/19 00:00 00:00 01:00 01:12 Temp 99.7 99.7 Pulse 117 111 Resp 37 B/P (MAP) 107/62 (77) 86/64 (71) Pulse Ox 96 97 96 O2 Delivery Tracheal Collar Trach Collar Tracheal Collar Tracheal Collar O2 Flow Rate 8.0 8.0 10/17/19 10/17/19 10/17/19 10/17/19 02:00 03:00 04:00 04:00 Temp 97.9 97.9 Pulse 108 103 103 Resp 37 19 21 B/P (MAP) 102/60 (74) 102/64 (77) 109/65 (80) Pulse Ox 97 98 99 O2 Delivery Tracheal Collar Tracheal Collar Tracheal Collar Trach Collar O2 Flow Rate 8.0 10/17/19 10/17/19 10/17/19 10/17/19 04:15 05:00 06:00 07:00 Pulse 102 108 116 Resp 26 24 B/P (MAP) 114/72 (86) 119/89 (99) 120/77 (91) Pulse Ox 100 98 98 98 O2 Delivery Tracheal Collar Tracheal Collar Tracheal Collar Tracheal Collar O2 Flow Rate 8.0 10/17/19 10/17/19 10/17/19 08:00 08:00 08:33 Temp 98.0 98.0 Pulse 119 Resp 24 B/P (MAP) 113/79 (90) Pulse Ox 99 100 O2 Delivery Trach Collar Tracheal Collar Tracheal Collar O2 Flow Rate 8.0 Intake and Output 10/16/19 10/16/19 10/17/19 14:59 22:59 06:59 Intake Total 1066 ml 1232 ml Output Total 355 ml 715 ml 540 ml Balance -355 ml 351 ml 692 ml Hemodynamically unstable?: No Is patient in severe pain?: No Is NPO status required?: No CARIN FERNANDEZ MD Oct 17, 2019 09:07
[2019-10-17] MEDS: TPN PER PHARMACY MC PRN (09:33)
--- NOTE | 2019-10-17 09:37 | NUR ---
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, 8 inches Weight: 87.8 kg Current diet: NPO LABS: Sodium: 137 Potassium: 4.4 Chloride: 101 Calcium: 10.7 Corrected Calcium: 13.02 Magnesium: 2 CO2: 35 SCr: 0.7 Glucose: 123-129 Albumin: 1.1 AST: 19 ALT: 14 TPN FORMULA: TPN TYPE: Central Continuous AMINO ACIDS: 80 gm DEXTROSE: 250 gm LIPIDS: 20 gm SODIUM CHLORIDE: 80 mEq SODIUM ACETATE: - mEq SODIUM PHOSPHATE: - mmol POTASSIUM CHLORIDE: 30 mEq POTASSIUM ACETATE: 30 mEq POTASSIUM PHOSPHATE: - mmol MAGNESIUM: 14 mEq CALCIUM: - mEq INSULIN: 15 units MULTIPLE VITAMIN: 10 ml TRACE ELEMENTS: 1 ml(s) TPN PLAN: Continue same TPN. Trig/phos/mag in AM. R: Continue TPN ABOVE. Will monitor electrolytes, glucose, and tolerance to TPN. CHRISTIAN VALLEJO [facility], 10/17/19 0937
--- NOTE | 2019-10-17 09:40 | PDOC ---
SURGICAL PROGRESS NOTE Subjective Pt sleeping comfortably, nursing notes still some issues with confusion. Vital Signs Vital Signs Date Time Temp Pulse Resp B/P (MAP) Pulse Ox O2 Delivery O2 Flow Rate FiO2 10/17/19 09:00 113 26 104/69 (81) 98 Tracheal Collar 10/17/19 08:33 8.0 10/17/19 08:00 98.0 98.0 I&O Intake and Output 10/17/19 07:00 Intake Total 2298 ml Output Total 1670 ml Balance 628 ml IV Total 2298 ml Output Urine Total 1600 ml Gastric Drainage Total 50 ml Chest Tube Drainage Total 0 ml Drainage Total 20 ml General: No acute distress Labs Laboratory Tests Test 10/15/19 12:15 10/15/19 17:30 10/16/19 00:30 10/16/19 06:06 O2 Saturation 95 % (92-99) Arterial Blood pH 7.41 (7.35-7.45) Arterial Blood pCO2 at Patient Temp 54 mmHg (35-46) Arterial Blood pO2 at Patient Temp 79 mmHg (75-108) Arterial Blood HCO3 34 mmol/L (21-28) Arterial Blood Base Excess 8 mmol/L (-3-3) FiO2 33 Glucose (Fingerstick) 135 mg/dL (70-99) 121 mg/dL (70-99) 128 mg/dL (70-99) Test 10/16/19 08:15 10/16/19 08:45 10/16/19 11:52 10/17/19 00:09 White Blood Count 12.4 x10^3/uL (4.0-11.0) Red Blood Count 3.06 x10^6/uL (3.50-5.40) Hemoglobin 8.5 g/dL (12.0-15.5) Hematocrit 26.0 % (36.0-47.0) Mean Corpuscular Volume 85 fL (79-100) Mean Corpuscular Hemoglobin 28 pg (25-35) Mean Corpuscular Hemoglobin Concent 33 g/dL (31-37) Red Cell Distribution Width 17.7 % (11.5-14.5) Platelet Count 394 x10^3/uL (140-400) Neutrophils (%) (Auto) 78 % (31-73) Lymphocytes (%) (Auto) 12 % (24-48) Monocytes (%) (Auto) 8 % (0-9) Eosinophils (%) (Auto) 2 % (0-3) Basophils (%) (Auto) 0 % (0-3) Neutrophils # (Auto) 9.7 x10^3/uL (1.8-7.7) Lymphocytes # (Auto) 1.4 x10^3/uL (1.0-4.8) Monocytes # (Auto) 1.0 x10^3/uL (0.0-1.1) Eosinophils # (Auto) 0.2 x10^3/uL (0.0-0.7) Basophils # (Auto) 0.0 x10^3/uL (0.0-0.2) Sodium Level 137 mmol/L (136-145) Potassium Level 4.5 mmol/L (3.5-5.1) Chloride Level 101 mmol/L (98-107) Carbon Dioxide Level 35 mmol/L (21-32) Anion Gap 1 (6-14) Blood Urea Nitrogen 16 mg/dL (7-20) Creatinine 0.6 mg/dL (0.6-1.0) Estimated GFR (Cockcroft-Gault) 106.3 Glucose Level 129 mg/dL (70-99) Calcium Level 10.5 mg/dL (8.5-10.1) Magnesium Level 2.0 mg/dL (1.8-2.4) O2 Saturation 97 % (92-99) Arterial Blood pH 7.41 (7.35-7.45) Arterial Blood pCO2 at Patient Temp 55 mmHg (35-46) Arterial Blood pO2 at Patient Temp 108 mmHg (75-108) Arterial Blood HCO3 34 mmol/L (21-28) Arterial Blood Base Excess 8 mmol/L (-3-3) FiO2 33 Glucose (Fingerstick) 128 mg/dL (70-99) 123 mg/dL (70-99) Test 10/17/19 05:53 10/17/19 06:00 Glucose (Fingerstick) 125 mg/dL (70-99) Sodium Level 137 mmol/L (136-145) Potassium Level 4.4 mmol/L (3.5-5.1) Chloride Level 101 mmol/L (98-107) Carbon Dioxide Level 35 mmol/L (21-32) Anion Gap 1 (6-14) Blood Urea Nitrogen 16 mg/dL (7-20) Creatinine 0.7 mg/dL (0.6-1.0) Estimated GFR (Cockcroft-Gault) 88.9 Glucose Level 129 mg/dL (70-99) Calcium Level 10.7 mg/dL (8.5-10.1) Laboratory Tests Test 10/16/19 11:52 10/17/19 00:09 10/17/19 05:53 10/17/19 06:00 Glucose (Fingerstick) 128 mg/dL (70-99) 123 mg/dL (70-99) 125 mg/dL (70-99) Sodium Level 137 mmol/L (136-145) Potassium Level 4.4 mmol/L (3.5-5.1) Chloride Level 101 mmol/L (98-107) Carbon Dioxide Level 35 mmol/L (21-32) Anion Gap 1 (6-14) Blood Urea Nitrogen 16 mg/dL (7-20) Creatinine 0.7 mg/dL (0.6-1.0) Estimated GFR (Cockcroft-Gault) 88.9 Glucose Level 129 mg/dL (70-99) Calcium Level 10.7 mg/dL (8.5-10.1) Problem List Problems Medical Problems: (1) Acute pancreatitis Status: Acute (2) Cholelithiasis Status: Acute Assessment/Plan severe pancreatitis plan OR in AM for necrosectomy, cholecystectomy and feeding tube placement. R/R/B/A d/w pt's family yesterday. Justicifation of Admission Dx: Justifications for Admission: Justification of Admission Dx: Yes DAVON SIMMS MD Oct 17, 2019 09:40
--- NOTE | 2019-10-17 10:24 | PDOC ---
Objective: Objective: D/w nursing - confusion, leakage around tubes/drains. Tmax 101.4. Vital Signs: Vital Signs Date Time Temp Pulse Resp B/P (MAP) Pulse Ox O2 Delivery O2 Flow Rate FiO2 10/17/19 10:00 116 30 116/72 (87) 99 Tracheal Collar 10/17/19 08:33 8.0 10/17/19 08:00 98.0 98.0 Labs: Laboratory Tests Test 10/16/19 11:52 10/17/19 00:09 10/17/19 05:53 10/17/19 06:00 Glucose (Fingerstick) 128 mg/dL 123 mg/dL 125 mg/dL Sodium Level 137 mmol/L Potassium Level 4.4 mmol/L Chloride Level 101 mmol/L Carbon Dioxide Level 35 mmol/L Anion Gap 1 Blood Urea Nitrogen 16 mg/dL Creatinine 0.7 mg/dL Estimated GFR (Cockcroft-Gault) 88.9 Glucose Level 129 mg/dL Calcium Level 10.7 mg/dL Imaging: CXR 10/15 IMPRESSION: No significant interval change compared to 10/13/2019. PE: GEN: chronically ill LUNGS: trach collar HEART: tachycardic on monitor NEURO/PSYCH: sleeping, not awakened A/P: Gallstone pancreatitis -- Plans for OR tomorrow for necrosectomy, cholecystectomy, feeding tube. Justicifation of Admission Dx: Justifications for Admission: Justification of Admission Dx: Yes CYNDEE FALCON Oct 17, 2019 10:23
--- NOTE | 2019-10-17 10:25 | NUR ---
SS following up with discharge planning. SS reviewed pt chart and discussed with pt RN. Pt scheduled for surgery with Dr. Servin tomorrow. Pt remains on trach collar and TPN. Pt now on IV Daptomycin and Meropenem. Pt continues to have drains and chest tube. SS will continue to follow for discharge planning.
[2019-10-17] MEDS: ACETYLCYSTEINE 20% for RESP TX 600 MG/3 ML. NEB SCH ×2 (11:50→20:15)
--- NOTE | 2019-10-17 12:20 | PDOC ---
PULMONARY PROGRESS NOTES Subjective Laying in bed, in no respiratory distress Patient intubated on 07/10 , s/p trach 07/24, remains on TS, episode of AMS and tachycardia yesterday Vitals Vital Signs Date Time Temp Pulse Resp B/P (MAP) Pulse Ox O2 Delivery O2 Flow Rate FiO2 10/17/19 11:55 100 Tracheal Collar 8.0 10/17/19 11:00 118 26 123/73 (90) 10/17/19 08:00 98.0 98.0 ROS: No Nausea, No Chest Pain, No Abdominal Pain General: Alert, No acute distress HEENT: Other (nc at perrl nose clear neck trach site ok no lab no thyromegaly) Lungs: Other (diminshed in bases) Cardiovascular: S1, S2 Abdomen: Soft, Non-tender, Other (multiple KAYLIN drains ) Extremities: Other (+1 BLE edema) Skin: Warm, Dry Labs Laboratory Tests Test 10/15/19 17:30 10/16/19 00:30 10/16/19 06:06 10/16/19 08:15 Glucose (Fingerstick) 135 mg/dL (70-99) 121 mg/dL (70-99) 128 mg/dL (70-99) White Blood Count 12.4 x10^3/uL (4.0-11.0) Red Blood Count 3.06 x10^6/uL (3.50-5.40) Hemoglobin 8.5 g/dL (12.0-15.5) Hematocrit 26.0 % (36.0-47.0) Mean Corpuscular Volume 85 fL (79-100) Mean Corpuscular Hemoglobin 28 pg (25-35) Mean Corpuscular Hemoglobin Concent 33 g/dL (31-37) Red Cell Distribution Width 17.7 % (11.5-14.5) Platelet Count 394 x10^3/uL (140-400) Neutrophils (%) (Auto) 78 % (31-73) Lymphocytes (%) (Auto) 12 % (24-48) Monocytes (%) (Auto) 8 % (0-9) Eosinophils (%) (Auto) 2 % (0-3) Basophils (%) (Auto) 0 % (0-3) Neutrophils # (Auto) 9.7 x10^3/uL (1.8-7.7) Lymphocytes # (Auto) 1.4 x10^3/uL (1.0-4.8) Monocytes # (Auto) 1.0 x10^3/uL (0.0-1.1) Eosinophils # (Auto) 0.2 x10^3/uL (0.0-0.7) Basophils # (Auto) 0.0 x10^3/uL (0.0-0.2) Sodium Level 137 mmol/L (136-145) Potassium Level 4.5 mmol/L (3.5-5.1) Chloride Level 101 mmol/L (98-107) Carbon Dioxide Level 35 mmol/L (21-32) Anion Gap 1 (6-14) Blood Urea Nitrogen 16 mg/dL (7-20) Creatinine 0.6 mg/dL (0.6-1.0) Estimated GFR (Cockcroft-Gault) 106.3 Glucose Level 129 mg/dL (70-99) Calcium Level 10.5 mg/dL (8.5-10.1) Magnesium Level 2.0 mg/dL (1.8-2.4) Test 10/16/19 08:45 10/16/19 11:52 10/17/19 00:09 10/17/19 05:53 O2 Saturation 97 % (92-99) Arterial Blood pH 7.41 (7.35-7.45) Arterial Blood pCO2 at Patient Temp 55 mmHg (35-46) Arterial Blood pO2 at Patient Temp 108 mmHg (75-108) Arterial Blood HCO3 34 mmol/L (21-28) Arterial Blood Base Excess 8 mmol/L (-3-3) FiO2 33 Glucose (Fingerstick) 128 mg/dL (70-99) 123 mg/dL (70-99) 125 mg/dL (70-99) Test 10/17/19 06:00 10/17/19 11:51 Sodium Level 137 mmol/L (136-145) Potassium Level 4.4 mmol/L (3.5-5.1) Chloride Level 101 mmol/L (98-107) Carbon Dioxide Level 35 mmol/L (21-32) Anion Gap 1 (6-14) Blood Urea Nitrogen 16 mg/dL (7-20) Creatinine 0.7 mg/dL (0.6-1.0) Estimated GFR (Cockcroft-Gault) 88.9 Glucose Level 129 mg/dL (70-99) Calcium Level 10.7 mg/dL (8.5-10.1) Glucose (Fingerstick) 125 mg/dL (70-99) Laboratory Tests Test 10/17/19 00:09 10/17/19 05:53 10/17/19 06:00 10/17/19 11:51 Glucose (Fingerstick) 123 mg/dL (70-99) 125 mg/dL (70-99) 125 mg/dL (70-99) Sodium Level 137 mmol/L (136-145) Potassium Level 4.4 mmol/L (3.5-5.1) Chloride Level 101 mmol/L (98-107) Carbon Dioxide Level 35 mmol/L (21-32) Anion Gap 1 (6-14) Blood Urea Nitrogen 16 mg/dL (7-20) Creatinine 0.7 mg/dL (0.6-1.0) Estimated GFR (Cockcroft-Gault) 88.9 Glucose Level 129 mg/dL (70-99) Calcium Level 10.7 mg/dL (8.5-10.1) Medications Active Scripts Medications Dose Route/Sig Max Daily Dose Days Date Category Bisoprolol Fumarate 5 Mg Tablet 10 Mg PO DAILY 07/04/19 Reported Comments CXR 10/16/19 IMPRESSION: No significant interval change compared to 10/13/2019. ct abdomen /pelvis 09/23 1. Removal of the percutaneous pigtail drainage catheters since the prior exam. Sequela of pancreatitis with extensive pseudocysts again demonstrated, the right-sided collections are slightly larger since the prior exam, the left-sided collections are stable. See above. 2. Moderate to large left pleural effusion with atelectasis and collapse of most of the left lower lobe, stable. Small right pleural effusion is stable. 3. Gallstone. ct chest 10/02 reviewed GRAM NEG COCCOBACILLI:MANY SQUAMOUS EPI CELL:RARE PMN (WBCs):FEW Unless otherwise specified, Testing Performed by: [address] [address] For Inquires, the Physician may contact the Microbiology department at [phone] RESPIRATORY CULTURE Final Final MANY GRAM NEGATIVE RODS on 10/03/19 at 1107 FINAL ID= [PSEUDOMONAS [email or web address]] MICRO CHARGES PSEUDOMONAS AERUGINOSA ANTIMICROBIAL SUSCEPTIBILITY Final Comment NEG ALEXANDRA 56 PSEUDOMONAS AERUGINOSA ANTIBIOTIC RESULT INTERPRETATION AMIKACIN <=16 S AZTREONAM <=4 S CEFTAZIDIME <=1 S CIPROFLOXACIN <=0.25 S CEFEPIME <=2 S CEFTAZIDIME/AVIBACTAM <=4 S GENTAMICIN <=2 S LEVOFLOXACIN <=0.5 S Impression . IMPRESSION: 1. Acute hypoxemic respiratory failure secondary to ARDS status post trach, developed anemia 09/24, blood drainage from RLQ abdomen drain site, and surrounding firmness / developed septic shock 09/24 from abdomen source, required levo /7 s/p 3 new drains 09/24 with brown color drainage, on/off vent , on TS now 2. Gallstone pancreatitis, now with ongoing bleeding from prior drain. Anemic. s/p Tx multiple units over several days 3. septic shock/sepsis, recurrent 09/24, source abdomen. , off levo now, 4. Acute kidney injury-, Off HD--renal function decling. suspect JUANA on CKD due to hypotension , improved now 5. Acute gallstone pancreatitis. 6. Hypoalbuminemia. 7. Moderate persistent effusions, s/p left thora 08/29, reaccumulation of left effusion. O2 requirement not changed. 8. Fever- ,hypotension. suspect recurrent sepsis/ likely pancreatic source. Per ID, per surgery-- 9. Chronic anemia-- ongoing / s/p PRBC 10. Covid 19 testing negative 11. Moderate to large ascites-S/P paracentisis 12.S/P paracentisis with 4 liters removed on 08/03/19 13. S/P IR drain placement on 08/26/2019, removal, re inserted 09/24 14. Depression/Anxiety 15. Increase effusion, ? loculated/ s/p chest tube.. drainage slowing down. 200 cc /24 hr Plan . Surgery to undergo surgery sometime this, respiratory status is currently compensated off mechanical ventilation 1. TS as tolerated titrate fio2 to keep sat 94%, off vent 2. Follow all cultures/ PSA from pelvic drains. Abx per ID/ thoracentesis result transudate, await c/s, 3. Follow surgery recs-- Acute pancreatitis with persistent necrosis ---- 08/14 status post KAYLIN drain placement + C paropsilosis; 08/23 + yeast & high amylase; s/p additional drains on 08/25, removal of drains and now increase pseudocyst and increase fluid collection. likely infected fluid/ sepsis. on BS abx.follow surgery rec, planning surgical intervention Thursday 4. Follow ID recs for ABX---- currently monitoring off ABX 5. Follow nephrology recs ----- 6. Continue TPN 7. monitor HGB, 4 units since 09/23--monitor HGB transfuse if less than 8.5 8 s/p thoracentesis, 08/29, 3 litres removed, s/p ct on 10/02. ct drainage, 180 cc over the past 24 hrs, suction -40, am cxr, flushed chest tube 10/09 9. Pt remains critically ill from severe necrotic pancreatis. Even with surgery prognosis grim. Surgery informed family. 10. lasix/albumin prn 11. sputum gram neg cocobacilli. anna sensitive--per ID 12. Abdominal fluid culture MDRO Pseudomonas, yeast-- per ID DVT/GI PPX: protonix--- PT/OT D/W RN, RT CC time 30 minutes HARMEET BEE MD Oct 17, 2019 12:20
[2019-10-17] MEDS: ACETAMINOPHEN 650 MG SUPP.RECT. PR PRN (18:16)
[2019-10-17] MEDS: DAPTOmycin (GENERIC) IVPB 500 MG in IV NORMAL SALINE 50ML 50 ML IV SCH (18:19)
[2019-10-17] MEDS ORDERED: [UNRECOGNIZED DRUG - OTHER] IV SCH ×10 (22:00)
[2019-10-17] MEDS ORDERED: AMINO ACID IV SCH ×10 (22:00)
[2019-10-17] MEDS ORDERED: DEXTROSE 70% IV SCH ×10 (22:00)
[2019-10-17] MEDS ORDERED: TOTAL PARENTERAL NUTRITION IV SCH ×10 (22:00)
[2019-10-18] VITALS (31 sets, daily range): BP systolic 95–172; BP diastolic 60–99
[2019-10-18] MEDS: MEROPENEM 500 MG in IV NORMAL SALINE 50ML 50 ML IV SCH ×4 (00:27→21:48)
[2019-10-18] MEDS: IPRATRPIUM/ALBUTEROL 0.5/2.5MG 3 ML NEBU. NEB SCH ×5 (04:00→20:02)
[2019-10-18] MEDS: INSULIN LISPRO 300 UNITS/3 ML VIAL. SQ SCH ×4 (05:36→18:00)
[2019-10-18 05:44] LABS: BASO % 0 % (0-3); EOS # 0.2 x10^3/uL (0.0-0.7); EOS % 1 % (0-3); HEMATOCRIT 25.1 % (36.0-47.0); HEMOGLOBIN 8.1 g/dL (12.0-15.5); LYMPH # 1.4 x10^3/uL (1.0-4.8); LYMPH % 10 % (24-48); MEAN CORPUSCULAR HEMOGLOBIN 27 pg (25-35); MEAN CORPUSCULAR HGB CONC 32 g/dL (31-37); MEAN CORPUSCULAR VOLUME 85 fL (79-100); MONO # 1.2 x10^3/uL (0.0-1.1); MONO % 8 % (0-9); NEUT # 11.9 x10^3/uL (1.8-7.7); NEUT % 80 % (31-73); PLATELET COUNT 452 x10^3/uL (140-400); RED BLOOD COUNT 2.95 x10^6/uL (3.50-5.40); RED CELL DISTRIBUTION WIDTH 18.2 % (11.5-14.5); WHITE BLOOD COUNT 14.8 x10^3/uL (4.0-11.0)
[2019-10-18] MEDS ORDERED: HEPARIN 1,000 UNIT in IV NORMAL SALINE 1,000 ML for SURG PERIOP IRR ONE (06:00)
[2019-10-18 06:25] LABS: ALBUMIN 1.1 g/dL (3.4-5.0); ALBUMIN/GLOBULIN RATIO 0.3 (1.0-1.7); CALCIUM 11.1 mg/dL (8.5-10.1); CREATININE 0.5 mg/dL (0.6-1.0); GFR 131.1; POTASSIUM 4.4 mmol/L (3.5-5.1); TOTAL BILIRUBIN 0.4 mg/dL (0.2-1.0); TOTAL PROTEIN 4.7 g/dL (6.4-8.2)
[2019-10-18 06:30] LABS: MAGNESIUM 2.1 mg/dL (1.8-2.4); PHOSPHORUS 3.9 mg/dL (2.6-4.7)
[2019-10-18] MEDS ORDERED: PROPOFOL 10 MG/ML (20ML) VIAL. IV ONE (07:44)
[2019-10-18] MEDS ORDERED: ROCURONIUM 100 MG/10 ML VIAL. ONE (07:44)
[2019-10-18] MEDS ORDERED: fentaNYL PF VIAL 100 MCG/2 ML VIAL ONE (07:44)
[2019-10-18] MEDS ORDERED: LIDOCAINE 2% PF 5 ML VIAL. ONE (07:44)
[2019-10-18] MEDS: PANTOPRAZOLE IV PUSH 40 MG VIAL. IVP SCH (07:45)
--- NOTE | 2019-10-18 08:08 | PDOC ---
PULMONARY PROGRESS NOTES Subjective Laying in bed, in no respiratory distress Patient intubated on 07/10 , s/p trach 07/24, remains on TS, episode of AMS and tachycardia yesterday Vitals Vital Signs Date Time Temp Pulse Resp B/P (MAP) Pulse Ox O2 Delivery O2 Flow Rate FiO2 10/18/19 07:00 117 21 168/99 (122) 99 Tracheal Collar 10/18/19 04:00 8.0 10/18/19 04:00 98.9 98.9 ROS: No Nausea, No Chest Pain, No Abdominal Pain General: Alert, No acute distress HEENT: Other (nc at perrl nose clear neck trach site ok no lab no thyromegaly) Lungs: Other (diminshed in bases) Cardiovascular: S1, S2 Abdomen: Soft, Non-tender, Other (multiple KAYLIN drains ) Extremities: Other (+1 BLE edema) Skin: Warm, Dry Labs Laboratory Tests Test 10/16/19 08:15 10/16/19 08:45 10/16/19 11:52 10/17/19 00:09 White Blood Count 12.4 x10^3/uL (4.0-11.0) Red Blood Count 3.06 x10^6/uL (3.50-5.40) Hemoglobin 8.5 g/dL (12.0-15.5) Hematocrit 26.0 % (36.0-47.0) Mean Corpuscular Volume 85 fL (79-100) Mean Corpuscular Hemoglobin 28 pg (25-35) Mean Corpuscular Hemoglobin Concent 33 g/dL (31-37) Red Cell Distribution Width 17.7 % (11.5-14.5) Platelet Count 394 x10^3/uL (140-400) Neutrophils (%) (Auto) 78 % (31-73) Lymphocytes (%) (Auto) 12 % (24-48) Monocytes (%) (Auto) 8 % (0-9) Eosinophils (%) (Auto) 2 % (0-3) Basophils (%) (Auto) 0 % (0-3) Neutrophils # (Auto) 9.7 x10^3/uL (1.8-7.7) Lymphocytes # (Auto) 1.4 x10^3/uL (1.0-4.8) Monocytes # (Auto) 1.0 x10^3/uL (0.0-1.1) Eosinophils # (Auto) 0.2 x10^3/uL (0.0-0.7) Basophils # (Auto) 0.0 x10^3/uL (0.0-0.2) Sodium Level 137 mmol/L (136-145) Potassium Level 4.5 mmol/L (3.5-5.1) Chloride Level 101 mmol/L (98-107) Carbon Dioxide Level 35 mmol/L (21-32) Anion Gap 1 (6-14) Blood Urea Nitrogen 16 mg/dL (7-20) Creatinine 0.6 mg/dL (0.6-1.0) Estimated GFR (Cockcroft-Gault) 106.3 Glucose Level 129 mg/dL (70-99) Calcium Level 10.5 mg/dL (8.5-10.1) Magnesium Level 2.0 mg/dL (1.8-2.4) O2 Saturation 97 % (92-99) Arterial Blood pH 7.41 (7.35-7.45) Arterial Blood pCO2 at Patient Temp 55 mmHg (35-46) Arterial Blood pO2 at Patient Temp 108 mmHg (75-108) Arterial Blood HCO3 34 mmol/L (21-28) Arterial Blood Base Excess 8 mmol/L (-3-3) FiO2 33 Glucose (Fingerstick) 128 mg/dL (70-99) 123 mg/dL (70-99) Test 10/17/19 05:53 10/17/19 06:00 10/17/19 11:51 10/18/19 00:24 Glucose (Fingerstick) 125 mg/dL (70-99) 125 mg/dL (70-99) 128 mg/dL (70-99) Sodium Level 137 mmol/L (136-145) Potassium Level 4.4 mmol/L (3.5-5.1) Chloride Level 101 mmol/L (98-107) Carbon Dioxide Level 35 mmol/L (21-32) Anion Gap 1 (6-14) Blood Urea Nitrogen 16 mg/dL (7-20) Creatinine 0.7 mg/dL (0.6-1.0) Estimated GFR (Cockcroft-Gault) 88.9 Glucose Level 129 mg/dL (70-99) Calcium Level 10.7 mg/dL (8.5-10.1) Test 10/18/19 05:25 10/18/19 05:34 White Blood Count 14.8 x10^3/uL (4.0-11.0) Red Blood Count 2.95 x10^6/uL (3.50-5.40) Hemoglobin 8.1 g/dL (12.0-15.5) Hematocrit 25.1 % (36.0-47.0) Mean Corpuscular Volume 85 fL (79-100) Mean Corpuscular Hemoglobin 27 pg (25-35) Mean Corpuscular Hemoglobin Concent 32 g/dL (31-37) Red Cell Distribution Width 18.2 % (11.5-14.5) Platelet Count 452 x10^3/uL (140-400) Neutrophils (%) (Auto) 80 % (31-73) Lymphocytes (%) (Auto) 10 % (24-48) Monocytes (%) (Auto) 8 % (0-9) Eosinophils (%) (Auto) 1 % (0-3) Basophils (%) (Auto) 0 % (0-3) Neutrophils # (Auto) 11.9 x10^3/uL (1.8-7.7) Lymphocytes # (Auto) 1.4 x10^3/uL (1.0-4.8) Monocytes # (Auto) 1.2 x10^3/uL (0.0-1.1) Eosinophils # (Auto) 0.2 x10^3/uL (0.0-0.7) Basophils # (Auto) 0.0 x10^3/uL (0.0-0.2) Sodium Level 136 mmol/L (136-145) Potassium Level 4.4 mmol/L (3.5-5.1) Chloride Level 101 mmol/L (98-107) Carbon Dioxide Level 34 mmol/L (21-32) Anion Gap 1 (6-14) Blood Urea Nitrogen 14 mg/dL (7-20) Creatinine 0.5 mg/dL (0.6-1.0) Estimated GFR (Cockcroft-Gault) 131.1 BUN/Creatinine Ratio 28 (6-20) Glucose Level 136 mg/dL (70-99) Calcium Level 11.1 mg/dL (8.5-10.1) Phosphorus Level 3.9 mg/dL (2.6-4.7) Magnesium Level 2.1 mg/dL (1.8-2.4) Total Bilirubin 0.4 mg/dL (0.2-1.0) Aspartate Amino Transf (AST/SGOT) 18 U/L (15-37) Alanine Aminotransferase (ALT/SGPT) 12 U/L (14-59) Alkaline Phosphatase 118 U/L (46-116) Total Protein 4.7 g/dL (6.4-8.2) Albumin 1.1 g/dL (3.4-5.0) Albumin/Globulin Ratio 0.3 (1.0-1.7) Triglycerides Level 155 mg/dL (0-150) Glucose (Fingerstick) 128 mg/dL (70-99) Laboratory Tests Test 10/17/19 11:51 10/18/19 00:24 10/18/19 05:25 10/18/19 05:34 Glucose (Fingerstick) 125 mg/dL (70-99) 128 mg/dL (70-99) 128 mg/dL (70-99) White Blood Count 14.8 x10^3/uL (4.0-11.0) Red Blood Count 2.95 x10^6/uL (3.50-5.40) Hemoglobin 8.1 g/dL (12.0-15.5) Hematocrit 25.1 % (36.0-47.0) Mean Corpuscular Volume 85 fL (79-100) Mean Corpuscular Hemoglobin 27 pg (25-35) Mean Corpuscular Hemoglobin Concent 32 g/dL (31-37) Red Cell Distribution Width 18.2 % (11.5-14.5) Platelet Count 452 x10^3/uL (140-400) Neutrophils (%) (Auto) 80 % (31-73) Lymphocytes (%) (Auto) 10 % (24-48) Monocytes (%) (Auto) 8 % (0-9) Eosinophils (%) (Auto) 1 % (0-3) Basophils (%) (Auto) 0 % (0-3) Neutrophils # (Auto) 11.9 x10^3/uL (1.8-7.7) Lymphocytes # (Auto) 1.4 x10^3/uL (1.0-4.8) Monocytes # (Auto) 1.2 x10^3/uL (0.0-1.1) Eosinophils # (Auto) 0.2 x10^3/uL (0.0-0.7) Basophils # (Auto) 0.0 x10^3/uL (0.0-0.2) Sodium Level 136 mmol/L (136-145) Potassium Level 4.4 mmol/L (3.5-5.1) Chloride Level 101 mmol/L (98-107) Carbon Dioxide Level 34 mmol/L (21-32) Anion Gap 1 (6-14) Blood Urea Nitrogen 14 mg/dL (7-20) Creatinine 0.5 mg/dL (0.6-1.0) Estimated GFR (Cockcroft-Gault) 131.1 BUN/Creatinine Ratio 28 (6-20) Glucose Level 136 mg/dL (70-99) Calcium Level 11.1 mg/dL (8.5-10.1) Phosphorus Level 3.9 mg/dL (2.6-4.7) Magnesium Level 2.1 mg/dL (1.8-2.4) Total Bilirubin 0.4 mg/dL (0.2-1.0) Aspartate Amino Transf (AST/SGOT) 18 U/L (15-37) Alanine Aminotransferase (ALT/SGPT) 12 U/L (14-59) Alkaline Phosphatase 118 U/L (46-116) Total Protein 4.7 g/dL (6.4-8.2) Albumin 1.1 g/dL (3.4-5.0) Albumin/Globulin Ratio 0.3 (1.0-1.7) Triglycerides Level 155 mg/dL (0-150) Medications Active Scripts Medications Dose Route/Sig Max Daily Dose Days Date Category Bisoprolol Fumarate 5 Mg Tablet 10 Mg PO DAILY 07/04/19 Reported Comments CXR 10/16/19 IMPRESSION: No significant interval change compared to 10/13/2019. ct abdomen /pelvis 09/23 1. Removal of the percutaneous pigtail drainage catheters since the prior exam. Sequela of pancreatitis with extensive pseudocysts again demonstrated, the right-sided collections are slightly larger since the prior exam, the left-sided collections are stable. See above. 2. Moderate to large left pleural effusion with atelectasis and collapse of most of the left lower lobe, stable. Small right pleural effusion is stable. 3. Gallstone. ct chest 10/02 reviewed GRAM NEG COCCOBACILLI:MANY SQUAMOUS EPI CELL:RARE PMN (WBCs):FEW Unless otherwise specified, Testing Performed by: [address] [address] For Inquires, the Physician may contact the Microbiology department at [phone] RESPIRATORY CULTURE Final Final MANY GRAM NEGATIVE RODS on 10/03/19 at 1107 FINAL ID= [PSEUDOMONAS AERUGINOSA] MICRO CHARGES PSEUDOMONAS AERUGINOSA ANTIMICROBIAL SUSCEPTIBILITY Final Comment NEG ALEXANDRA 56 PSEUDOMONAS AERUGINOSA ANTIBIOTIC RESULT INTERPRETATION AMIKACIN <=16 S AZTREONAM <=4 S CEFTAZIDIME <=1 S CIPROFLOXACIN <=0.25 S CEFEPIME <=2 S CEFTAZIDIME/AVIBACTAM <=4 S GENTAMICIN <=2 S LEVOFLOXACIN <=0.5 S Impression . IMPRESSION: 1. Acute hypoxemic respiratory failure secondary to ARDS status post trach, developed anemia 09/24, blood drainage from RLQ abdomen drain site, and surrounding firmness / developed septic shock 09/24 from abdomen source, required levo /7 s/p 3 new drains 09/24 with brown color drainage, on/off vent , on TS now 2. Gallstone pancreatitis, now with ongoing bleeding from prior drain. Anemic. s/p Tx multiple units over several days 3. septic shock/sepsis, recurrent 09/24, source abdomen. , off levo now, 4. Acute kidney injury-, Off HD--renal function decling. suspect JUANA on CKD due to hypotension , improved now 5. Acute gallstone pancreatitis. 6. Hypoalbuminemia. 7. Moderate persistent effusions, s/p left thora 08/29, reaccumulation of left effusion. O2 requirement not changed. 8. Fever- ,hypotension. suspect recurrent sepsis/ likely pancreatic source. Per ID, per surgery-- 9. Chronic anemia-- ongoing / s/p PRBC 10. Covid 19 testing negative 11. Moderate to large ascites-S/P paracentisis 12.S/P paracentisis with 4 liters removed on 08/03/19 13. S/P IR drain placement on 08/26/2019, removal, re inserted 09/24 14. Depression/Anxiety 15. Increase effusion, ? loculated/ s/p chest tube.. drainage slowing down. 200 cc /24 hr Plan . Surgery schedule for today 1. TS as tolerated titrate fio2 to keep sat 94%, off vent 2. Follow all cultures/ PSA from pelvic drains. Abx per ID/ thoracentesis result transudate, await c/s, 3. Follow surgery recs-- Acute pancreatitis with persistent necrosis ---- 08/14 status post KAYLIN drain placement + C paropsilosis; 08/23 + yeast & high amylase; s/p additional drains on 08/25, removal of drains and now increase pseudocyst and increase fluid collection. likely infected fluid/ sepsis. on BS abx.follow surgery rec, planning surgical intervention Thursday 4. Follow ID recs for ABX---- currently monitoring off ABX 5. Follow nephrology recs ----- 6. Continue TPN 7. monitor HGB, 4 units since 09/23--monitor HGB transfuse if less than 8.5 8 s/p thoracentesis, 08/29, 3 litres removed, s/p ct on 10/02. ct drainage, 180 cc over the past 24 hrs, suction -40, am cxr, flushed chest tube 10/09 9. Pt remains critically ill from severe necrotic pancreatis. Even with surgery prognosis grim. Surgery informed family. 10. lasix/albumin prn 11. sputum gram neg cocobacilli. anna sensitive--per ID 12. Abdominal fluid culture MDRO Pseudomonas, yeast-- per ID DVT/GI PPX: protonix--- PT/OT D/W RN, RT CC time 30 minutes HARMEET BEE MD Oct 18, 2019 08:08
--- NOTE | 2019-10-18 08:19 | PDOC ---
Infectious Disease Note Subjective: Subjective Pt febrile yesterday again T >101 alert awake,comfortable awaiting surgery later today Remains on trach collar Vital Signs: Vital Signs Vital Signs Date Time Temp Pulse Resp B/P (MAP) Pulse Ox O2 Delivery O2 Flow Rate FiO2 10/18/19 07:00 117 21 168/99 (122) 99 Tracheal Collar 10/18/19 04:00 8.0 10/18/19 04:00 98.9 98.9 Physical Exam: PHYSICAL EXAM GENERAL: Patient alert awake comfortable HEENT: Anicteric, no thrush, NG tube in place NECK: Tracheostomy LUNGS: Diminished aeration bases, no accessory muscle use - CT on left HEART: S1, S2,regular ABDOMEN: Mild distention, bowel sounds present, soft, grimaces to palpation, drains x 3 : Lind ( 09/24) EXTREMITIES: + edema BLE SKIN: no signs of gen rash LUE-PICC without signs of complications Medications: Inpatient Meds: Current Medications Medications (Trade) Dose Ordered Sig/Yvon Start Time Stop Time Status Last Admin Dose Admin Acetaminophen (Tylenol Supp) 650 mg PRN Q6HRS PRN 07/12/19 10:30 10/17/19 18:16 650 MG Acetaminophen (Tylenol) 650 mg PRN Q6HRS PRN 07/09/19 03:36 08/31/19 10:25 DC 08/04/19 19:56 650 MG Acetylcysteine (Mucomyst 20% Resp Treatment) 600 mg RTBID 10/15/19 12:00 10/17/19 20:15 600 MG Albumin Human 250 ml @ 62.5 mls/hr 1X ONCE 10/12/19 15:30 10/12/19 19:29 DC 10/12/19 16:27 62.5 MLS/HR Albuterol Sulfate (Ventolin Neb Soln) 2.5 mg 1X ONCE 07/05/19 22:30 07/05/19 22:31 DC 07/06/19 00:56 2.5 MG Albuterol/ Ipratropium (Duoneb) 3 ml Q4HRS 10/01/19 08:00 10/18/19 04:00 3 ML Alteplase, Recombinant (Cathflo For Central Catheter Clearance) 4 mg 1X ONCE 10/05/19 09:15 6/17/20 09:16 UNV Alteplase, Recombinant 4 mg/ Sodium Chloride 20 ml @ 20 mls/hr 1X ONCE 10/05/19 10:00 10/05/19 10:59 DC 10/05/19 10:09 20 MLS/HR Amino Acids/ Glycerin/ Electrolytes 1,000 ml @ 75 mls/hr [id number] 08/08/19 21:15 UNV Artificial Tears (Artificial Tears) 1 drop PRN Q15MIN PRN 08/17/19 05:30 10/11/19 21:17 1 DROP Atenolol (Tenormin) 100 mg DAILY 07/05/19 09:00 07/04/19 20:08 DC Atropine Sulfate (ATROPINE 0.5mg SYRINGE) 0.5 mg PRN Q5MIN PRN 07/21/19 08:15 Barium Sulfate (Varibar Thin Liquid Apple) 148 gm 1X ONCE 09/13/19 11:45 09/13/19 11:49 DC Benzocaine (Hurricaine One) 1 spray 1X ONCE 07/08/19 14:30 07/08/19 14:31 DC 07/08/19 16:38 1 SPRAY Bisacodyl (Dulcolax Supp) 10 mg STK-MED ONCE 08/15/19 10:59 08/15/19 10:59 DC Bumetanide (Bumex) 2 mg DAILY 08/26/19 10:00 09/05/19 17:15 DC 09/05/19 08:07 2 MG Bupivacaine HCl/ Epinephrine Bitart (Sensorcain-Epi 0.5%-1:[id number] Mpf) 30 ml STK-MED ONCE 08/15/19 10:58 08/15/19 10:58 DC 08/15/19 12:01 7 ML Calcium Carbonate/ Glycine (Tums) 500 mg PRN [id number] PRN 07/06/19 17:45 08/31/19 10:25 DC Calcium Chloride 1000 mg/Sodium Chloride 110 ml @ 220 mls/hr 1X ONCE 07/05/19 22:30 07/05/19 22:59 DC 07/05/19 22:11 220 MLS/HR Calcium Chloride 3000 mg/Sodium Chloride 1,030 ml @ 50 mls/hr [id number] 07/07/19 08:00 07/09/19 15:23 DC 07/09/19 02:17 50 MLS/HR Calcium Gluconate (Calcium Gluconate) 2,000 mg 1X ONCE 07/07/19 02:15 07/07/19 02:16 DC 07/07/19 02:19 2,000 MG Calcium Gluconate 1000 mg/Sodium Chloride 110 ml @ 220 mls/hr 1X ONCE 07/06/19 03:30 07/06/19 03:59 DC 07/06/19 03:21 220 MLS/HR Calcium Gluconate 2000 mg/Sodium Chloride 120 ml @ 220 mls/hr 1X ONCE 07/06/19 07:30 07/06/19 08:02 DC 07/06/19 09:05 220 MLS/HR Cefepime HCl (Maxipime) 2 gm Q12HR 07/13/19 09:00 07/27/19 09:58 DC 07/26/19 20:56 2 GM Cellulose (Surgicel Fibrillar 1x2) 1 each STK-MED ONCE 07/25/19 11:00 07/25/19 11:01 DC Cellulose (Surgicel Hemostat 2x14) 1 each STK-MED ONCE 08/15/19 10:58 08/15/19 10:59 DC Cellulose (Surgicel Hemostat 4x8) 1 each STK-MED ONCE 08/15/19 10:58 08/15/19 10:59 DC Chlorhexidine Gluconate (Peridex) 15 ml BID 10/01/19 09:00 10/01/19 07:58 DC Ciprofloxacin/ Dextrose 200 ml @ 200 mls/hr Q12HR 10/06/19 21:00 10/13/19 08:56 DC 10/13/19 08:27 200 MLS/HR Cyclobenzaprine HCl (Flexeril) 10 mg PRN Q6HRS PRN 08/18/19 10:45 Daptomycin 410 mg/ Sodium Chloride 50 ml @ 100 mls/hr Q24H 09/25/19 14:00 09/28/19 08:30 DC 09/27/19 13:33 100 MLS/HR Daptomycin 430 mg/ Sodium Chloride 50 ml @ 100 mls/hr Q24H 08/13/19 13:00 08/18/19 20:58 DC 08/18/19 13:00 100 MLS/HR Daptomycin 450 mg/ Sodium Chloride 50 ml @ 100 mls/hr Q24H 09/04/19 09:00 09/08/19 08:30 DC 09/07/19 09:25 100 MLS/HR Daptomycin 485 mg/ Sodium Chloride 50 ml @ 100 mls/hr Q24H 08/22/19 11:00 08/30/19 07:44 DC 08/29/19 13:10 100 MLS/HR Daptomycin 500 mg/ Sodium Chloride 50 ml @ 100 mls/hr Q24H 10/16/19 19:00 10/17/19 18:19 100 MLS/HR Dexamethasone Sodium Phosphate (Decadron) 4 mg STK-MED ONCE 08/15/19 10:56 08/15/19 10:57 DC Dexmedetomidine HCl 400 mcg/ Sodium Chloride 100 ml @ 0 mls/hr CONT PRN 07/21/19 08:15 09/17/19 18:31 DC 09/17/19 12:57 8 MLS/HR Dextrose (Dextrose 50%-Water Syringe) 12.5 gm PRN Q15MIN PRN 07/04/19 09:30 Digoxin (Lanoxin) 125 mcg 1X ONCE 07/07/19 18:00 07/07/19 18:01 DC 07/07/19 17:10 125 MCG Diphenhydramine HCl (Benadryl) 25 mg 1X PRN PRN 08/12/19 15:45 08/13/19 15:44 DC Duloxetine HCl (Cymbalta) 30 mg DAILY 08/28/19 14:00 08/31/19 10:25 DC 08/29/19 09:48 30 MG Enoxaparin Sodium (Lovenox 100mg Syringe) 100 mg Q12HR 08/09/19 21:00 UNV Enoxaparin Sodium (Lovenox 40mg Syringe) 40 mg Q24H 09/04/19 17:00 09/25/19 06:50 DC 09/23/19 17:44 40 MG Etomidate (Amidate) 8 mg 1X ONCE 07/11/19 08:30 07/11/19 08:31 DC 07/11/19 08:33 8 MG Fentanyl (Duragesic 50mcg/ Hr Patch) 1 patch Q72H 09/22/19 21:00 10/01/19 12:00 DC 09/22/19 21:22 1 PATCH Fentanyl Citrate (Fentanyl 2ml Vial) 100 mcg STK-MED ONCE 10/18/19 07:44 10/18/19 07:44 DC Fentanyl Citrate (Fentanyl 5ml Vial) 250 mcg 1X ONCE 08/26/19 09:15 08/26/19 09:16 DC 08/26/19 09:30 50 MCG Flumazenil (Romazicon) 0.5 mg STK-MED ONCE 09/25/19 14:48 09/25/19 14:48 DC Fluoxetine HCl (PROzac) 20 mg QHS 09/22/19 21:00 10/15/19 21:52 20 MG Furosemide (Lasix) 40 mg 1X ONCE 10/12/19 15:30 10/12/19 15:33 DC 10/12/19 16:27 40 MG Haloperidol Lactate (Haldol Inj) 3 mg 1X ONCE 08/22/19 14:30 08/22/19 14:31 DC 08/22/19 14:37 3 MG Heparin Sodium (Porcine) (Hep Lock Adult) 500 unit STK-MED ONCE 07/26/19 09:29 07/26/19 09:30 DC Heparin Sodium (Porcine) (Heparin Sodium) 5,000 unit Q12HR 08/15/19 21:00 08/25/19 09:59 DC 08/24/19 20:57 5,000 UNIT Heparin Sodium (Porcine) 1000 unit/Sodium Chloride 1,001 ml @ 1,001 mls/hr 1X ONCE 10/18/19 06:00 10/18/19 06:59 DC Hydromorphone HCl (Dilaudid Standard [employer]) 12 mg STK-MED ONCE 08/19/19 15:50 08/30/19 11:24 DC Hydromorphone HCl (Dilaudid) 1 mg PRN Q4HRS PRN 08/22/19 19:00 09/05/19 17:10 DC 09/05/19 06:25 1 MG Info (CONTRAST GIVEN -- Rx MONITORING) 1 each PRN DAILY PRN 07/18/19 11:45 07/20/19 11:44 DC Info (Icu Electrolyte Protocol) 1 ea CONT PRN PRN 07/17/19 13:15 Info (PHARMACY MONITORING -- do not chart) 1 each PRN DAILY PRN 08/12/19 15:45 09/13/19 14:14 DC Info (Tpn Per Pharmacy) 1 each PRN DAILY PRN 07/06/19 12:30 UNV Insulin Human Lispro (HumaLOG) 0-9 UNITS Q6HRS 07/04/19 09:30 10/12/19 18:05 4 UNITS Insulin Human Regular (HumuLIN R VIAL) 5 unit 1X ONCE 07/05/19 22:30 07/05/19 22:31 DC 07/05/19 22:14 5 UNIT Iohexol (Omnipaque 240 Mg/ml) 30 ml 1X ONCE 07/18/19 11:30 07/18/19 11:33 DC 07/18/19 11:30 30 ML Iohexol (Omnipaque 300 Mg/ml) 50 ml STK-MED ONCE 08/15/19 10:58 08/15/19 10:59 DC Iohexol (Omnipaque 350 Mg/ml) 90 ml 1X ONCE 07/04/19 03:30 07/04/19 03:31 DC 07/04/19 03:25 90 ML Ketorolac Tromethamine (Toradol 30mg Vial) 30 mg 1X ONCE 07/04/19 03:00 07/04/19 03:01 DC 07/04/19 02:54 30 MG Lidocaine HCl (Buffered Lidocaine 1%) 3 ml 1X ONCE 10/03/19 13:00 10/03/19 13:01 DC 10/03/19 13:11 12 ML Lidocaine HCl (Glydo (Lidocaine) Jelly) 1 ramu 1X ONCE 07/08/19 14:30 07/08/19 14:31 DC 07/08/19 16:38 1 RAMU Lidocaine HCl (Lidocaine 1% 20ml Vial) 20 ml 1X ONCE 09/25/19 15:00 09/25/19 15:01 DC 09/25/19 15:30 20 ML Lidocaine HCl (Lidocaine Pf 2% Vial) 5 ml STK-MED ONCE 10/18/19 07:44 10/18/19 07:44 DC Lidocaine HCl (Xylocaine-Mpf 1% 2ml Vial) 2 ml PRN 1X PRN 08/15/19 07:00 08/16/19 06:59 DC Linezolid/Dextrose 300 ml @ 300 mls/hr Q12HR 09/04/19 09:00 09/07/19 08:11 DC 09/06/19 21:08 300 MLS/HR Lorazepam (Ativan Inj) 0.25 mg PRN Q4HRS PRN 09/21/19 07:30 10/15/19 13:37 0.25 MG Magnesium Sulfate 50 ml @ 25 mls/hr 1X ONCE 10/04/19 08:15 10/04/19 10:14 DC Meropenem 1 gm/ Sodium Chloride 100 ml @ 200 mls/hr Q12HR 09/25/19 21:00 10/13/19 08:56 DC 10/13/19 08:27 200 MLS/HR Meropenem 500 mg/ Sodium Chloride 50 ml @ 100 mls/hr Q6HRS 10/16/19 18:00 10/18/19 06:14 100 MLS/HR Methylprednisolone Sodium Succinate (SOLU-Medrol 125MG VIAL) 125 mg 1X ONCE 10/01/19 06:15 10/01/19 06:16 DC 10/01/19 06:26 125 MG Metoclopramide HCl (Reglan Vial) 10 mg PRN Q3HRS PRN 08/27/19 16:45 09/01/19 04:25 10 MG Metoprolol Tartrate (Lopressor Vial) 5 mg PRN Q6HRS PRN 09/28/19 09:00 10/06/19 10:14 5 MG Metronidazole 100 ml @ 100 mls/hr Q8HRS 08/02/19 10:00 08/09/19 08:10 DC 08/09/19 06:04 100 MLS/HR Micafungin Sodium 100 mg/Dextrose 100 ml @ 100 mls/hr Q24H 09/25/19 11:00 10/13/19 08:56 DC 10/12/19 12:34 100 MLS/HR Midazolam HCl (Versed) 2 mg 1X ONCE 09/25/19 15:00 09/25/19 15:01 DC 09/25/19 15:28 1 MG Midazolam HCl 100 mg/Sodium Chloride 100 ml @ 7 mls/hr CONT PRN 07/16/19 16:00 09/21/19 14:38 DC 07/27/19 15:35 7 MLS/HR Midazolam HCl 50 mg/Sodium Chloride 50 ml @ 0 mls/hr CONT PRN 07/11/19 08:15 07/16/19 15:59 DC 07/14/19 22:39 7 MLS/HR Morphine Sulfate (Morphine Sulfate) 2 mg PRN Q2HR PRN 07/04/19 05:00 07/05/19 14:15 DC 07/05/19 12:26 2 MG Multi-Ingred Cream/Lotion/Oil/ Oint (Artificial Tears Eye Ointment) 1 ramu PRN Q1HR PRN 07/13/19 17:30 09/21/19 14:39 DC 08/01/19 08:19 1 RAMU Naloxone HCl (Narcan) 0.4 mg STK-MED ONCE 09/25/19 14:48 09/25/19 14:48 DC Norepinephrine Bitartrate 8 mg/ Dextrose 258 ml @ 13.332 mls/ hr CONT PRN 09/25/19 06:30 09/25/19 21:46 13.332 MLS/HR Ondansetron HCl (Zofran) 4 mg STK-MED ONCE 08/15/19 10:56 08/15/19 10:57 DC Pantoprazole Sodium (PROTONIX VIAL for IV PUSH) 40 mg DAILYAC 07/04/19 11:30 10/18/19 07:45 40 MG Phenylephrine HCl (PHENYLEPHRINE in 0.9% NACL PF) 1 mg STK-MED ONCE 08/15/19 12:34 08/15/19 12:34 DC Piperacillin Sod/ Tazobactam Sod 3.375 gm/Sodium Chloride 50 ml @ 100 mls/hr Q6HRS 09/14/19 12:00 09/22/19 07:26 DC 09/22/19 06:10 100 MLS/HR Piperacillin Sod/ Tazobactam Sod 4.5 gm/Sodium Chloride 100 ml @ 200 mls/hr 1X ONCE 07/04/19 06:00 07/04/19 06:29 DC 07/04/19 05:44 200 MLS/HR Potassium Chloride 110 meq/ Magnesium Sulfate 20 meq/ Multivitamins 10 ml/Chromium/ Copper/Manganese/ Seleni/Zn 1 ml/ Insulin Human Regular 15 unit/ Total Parenteral Nutrition/Amino Acids/Dextrose/ Fat Emulsion Intravenous 1,800 ml @ 75 mls/hr TPN CONT 09/11/19 22:00 09/12/19 21:59 DC 09/11/19 22:48 75 MLS/HR Potassium Chloride 15 meq/ Bicarbonate Dialysis Soln w/ out KCl 5,007.5 ml @ 1,000 mls/ hr Q5H1M 07/17/19 20:00 07/21/19 13:08 DC 07/20/19 18:14 1,000 MLS/HR Potassium Chloride 20 meq/ Bicarbonate Dialysis Soln w/ out KCl 5,010 ml @ 1,000 mls/hr Q5H1M 07/13/19 16:00 07/17/19 19:59 DC 07/17/19 14:54 1,000 MLS/HR Potassium Chloride 40 meq/ Potassium Acetate 60 meq/Magnesium Sulfate 10 meq/ Multivitamins 10 ml/Chromium/ Copper/Manganese/ Seleni/Zn 1 ml/ Insulin Human Regular 20 unit/ Total Parenteral Nutrition/Amino Acids/Dextrose/ Fat Emulsion Intravenous 1,800 ml @ 75 mls/hr TPN CONT 09/22/19 22:00 09/23/19 21:59 DC 09/23/19 00:03 75 MLS/HR Potassium Chloride 70 meq/ Magnesium Sulfate 20 meq/ Multivitamins 10 ml/Chromium/ Copper/Manganese/ Seleni/Zn 1 ml/ Insulin Human Regular 15 unit/ Total Parenteral Nutrition/Amino Acids/Dextrose/ Fat Emulsion Intravenous 1,800 ml @ 75 mls/hr TPN CONT 09/16/19 22:00 09/17/19 21:59 DC 09/16/19 23:13 75 MLS/HR Potassium Chloride 75 meq/ Magnesium Sulfate 15 meq/ Multivitamins 10 ml/Chromium/ Copper/Manganese/ Seleni/Zn 0.5 ml/ Insulin Human Regular 15 unit/ Total Parenteral Nutrition/Amino Acids/Dextrose/ Fat Emulsion Intravenous 1,920 ml @ 80 mls/hr TPN CONT 08/27/19 22:00 08/28/19 21:59 DC 08/27/19 22:41 80 MLS/HR Potassium Chloride 75 meq/ Magnesium Sulfate 15 meq/Calcium Gluconate 8 meq/ Multivitamins 10 ml/Chromium/ Copper/Manganese/ Seleni/Zn 0.5 ml/ Insulin Human Regular 15 unit/ Total Parenteral Nutrition/Amino Acids/Dextrose/ Fat Emulsion Intravenous 1,920 ml @ 80 mls/hr TPN CONT 08/25/19 22:00 08/26/19 21:59 DC 08/25/19 22:28 80 MLS/HR Potassium Chloride 75 meq/ Magnesium Sulfate 15 meq/Calcium Gluconate 8 meq/ Multivitamins 10 ml/Chromium/ Copper/Manganese/ Seleni/Zn 0.5 ml/ Insulin Human Regular 20 unit/ Total Parenteral Nutrition/Amino Acids/Dextrose/ Fat Emulsion Intravenous 1,920 ml @ 80 mls/hr TPN CONT 08/24/19 22:00 08/25/19 21:59 DC 08/24/19 22:00 80 MLS/HR Potassium Chloride 75 meq/ Magnesium Sulfate 15 meq/Calcium Gluconate 8 meq/ Multivitamins 10 ml/Chromium/ Copper/Manganese/ Seleni/Zn 0.5 ml/ Insulin Human Regular 25 unit/ Total Parenteral Nutrition/Amino Acids/Dextrose/ Fat Emulsion Intravenous 1,920 ml @ 80 mls/hr TPN CONT 08/22/19 22:00 08/23/19 21:59 DC 08/22/19 23:08 80 MLS/HR Potassium Chloride 75 meq/ Magnesium Sulfate 20 meq/Calcium Gluconate 10 meq/ Multivitamins 10 ml/Chromium/ Copper/Manganese/ Seleni/Zn 0.5 ml/ Insulin Human Regular 25 unit/ Total Parenteral Nutrition/Amino Acids/Dextrose/ Fat Emulsion Intravenous 1,920 ml @ 80 mls/hr TPN CONT 08/21/19 22:00 08/22/19 21:59 DC 08/21/19 22:04 80 MLS/HR Potassium Chloride 75 meq/ Magnesium Sulfate 20 meq/Calcium Gluconate 10 meq/ Multivitamins 10 ml/Chromium/ Copper/Manganese/ Seleni/Zn 0.5 ml/ Insulin Human Regular 30 unit/ Total Parenteral Nutrition/Amino Acids/Dextrose/ Fat Emulsion Intravenous 1,920 ml @ 80 mls/hr TPN CONT 08/20/19 22:00 08/21/19 22:00 DC 08/20/19 21:51 80 MLS/HR Potassium Chloride 80 meq/ Magnesium Sulfate 20 meq/ Multivitamins 10 ml/Chromium/ Copper/Manganese/ Seleni/Zn 0.5 ml/ Insulin Human Regular 15 unit/ Total Parenteral Nutrition/Amino Acids/Dextrose/ Fat Emulsion Intravenous 1,920 ml @ 80 mls/hr TPN CONT 08/30/19 22:00 08/31/19 21:59 DC 08/30/19 21:40 80 MLS/HR Potassium Chloride 80 meq/ Magnesium Sulfate 20 meq/ Multivitamins 10 ml/Chromium/ Copper/Manganese/ Seleni/Zn 1 ml/ Insulin Human Regular 15 unit/ Total Parenteral Nutrition/Amino Acids/Dextrose/ Fat Emulsion Intravenous 1,800 ml @ 75 mls/hr TPN CONT 09/18/19 22:00 09/19/19 21:59 DC 09/18/19 21:54 75 MLS/HR Potassium Chloride 90 meq/ Magnesium Sulfate 20 meq/ Multivitamins 10 ml/Chromium/ Copper/Manganese/ Seleni/Zn 1 ml/ Insulin Human Regular 15 unit/ Total Parenteral Nutrition/Amino Acids/Dextrose/ Fat Emulsion Intravenous 1,800 ml @ 75 mls/hr TPN CONT 09/07/19 22:00 09/08/19 21:59 DC 09/07/19 22:28 75 MLS/HR Potassium Chloride 90 meq/ Magnesium Sulfate 20 meq/ Multivitamins 10 ml/Chromium/ Copper/Manganese/ Seleni/Zn 1 ml/ Insulin Human Regular 20 unit/ Total Parenteral Nutrition/Amino Acids/Dextrose/ Fat Emulsion Intravenous 1,800 ml @ 75 mls/hr TPN CONT 09/21/19 22:00 09/22/19 21:59 DC 09/21/19 23:13 75 MLS/HR Potassium Chloride/Water 100 ml @ 100 mls/hr Q1H 10/05/19 08:00 10/05/19 09:59 DC 10/05/19 09:12 100 MLS/HR Potassium Phosphate 20 mmol/ Sodium Chloride 106.6667 ml @ 51.667 m... 1X ONCE 07/13/19 13:00 07/13/19 15:03 DC 07/13/19 12:51 51.667 MLS/HR Potassium Acetate 30 meq/Magnesium Sulfate 14 meq/ Multivitamins 10 ml/Chromium/ Copper/Manganese/ Seleni/Zn 1 ml/ Insulin Human Regular 15 unit/ Sodium Chloride 20 meq/Potassium Chloride 30 meq/ Total Parenteral Nutrition/Amino Acids/Dextrose/ Fat Emulsion Intravenous 1,920 ml @ 80 mls/hr TPN CONT 10/11/19 22:00 10/12/19 21:59 DC 10/11/19 21:46 80 MLS/HR Potassium Acetate 30 meq/Magnesium Sulfate 20 meq/ Calcium Gluconate 10 meq/ Multivitamins 10 ml/Chromium/ Copper/Manganese/ Seleni/Zn 0.5 ml/ Insulin Human Regular 30 unit/ Potassium Chloride 30 meq/ Total Parenteral Nutrition/Amino Acids/Dextrose/ Fat Emulsion Intravenous 1,920 ml @ 80 mls/hr TPN CONT 08/19/19 22:00 08/20/19 21:59 DC 08/19/19 22:34 80 MLS/HR Potassium Acetate 40 meq/Magnesium Sulfate 10 meq/ Multivitamins 10 ml/Chromium/ Copper/Manganese/ Seleni/Zn 1 ml/ Insulin Human Regular 20 unit/ Total Parenteral Nutrition/Amino Acids/Dextrose/ Fat Emulsion Intravenous 1,920 ml @ 80 mls/hr TPN CONT 10/04/19 22:00 10/05/19 21:59 DC 10/04/19 21:32 80 MLS/HR Potassium Acetate 40 meq/Magnesium Sulfate 5 meq/ Multivitamins 10 ml/Chromium/ Copper/Manganese/ Seleni/Zn 1 ml/ Insulin Human Regular 30 unit/ Total Parenteral Nutrition/Amino Acids/Dextrose/ Fat Emulsion Intravenous 1,920 ml @ 80 mls/hr TPN CONT 10/03/19 22:00 10/04/19 19:34 DC 10/03/19 21:54 80 MLS/HR Potassium Acetate 55 meq/Magnesium Sulfate 20 meq/ Calcium Gluconate 10 meq/ Multivitamins 10 ml/Chromium/ Copper/Manganese/ Seleni/Zn 0.5 ml/ Insulin Human Regular 30 unit/ Total Parenteral Nutrition/Amino Acids/Dextrose/ Fat Emulsion Intravenous 1,920 ml @ 80 mls/hr TPN CONT 08/18/19 22:00 08/19/19 21:59 DC 08/19/19 01:00 80 MLS/HR Potassium Acetate 55 meq/Magnesium Sulfate 20 meq/ Calcium Gluconate 10 meq/ Multivitamins 10 ml/Chromium/ Copper/Manganese/ Seleni/Zn 0.5 ml/ Insulin Human Regular 35 unit/ Total Parenteral Nutrition/Amino Acids/Dextrose/ Fat Emulsion Intravenous 1,920 ml @ 80 mls/hr TPN CONT 08/16/19 22:00 08/17/19 21:59 DC 08/16/19 22:02 80 MLS/HR Potassium Acetate 60 meq/Magnesium Sulfate 10 meq/ Multivitamins 10 ml/Chromium/ Copper/Manganese/ Seleni/Zn 1 ml/ Insulin Human Regular 20 unit/ Total Parenteral Nutrition/Amino Acids/Dextrose/ Fat Emulsion Intravenous 1,920 ml @ 80 mls/hr TPN CONT 10/05/19 22:00 10/06/19 21:59 DC 10/05/19 21:55 80 MLS/HR Potassium Acetate 60 meq/Magnesium Sulfate 14 meq/ Multivitamins 10 ml/Chromium/ Copper/Manganese/ Seleni/Zn 1 ml/ Insulin Human Regular 15 unit/ Sodium Chloride 20 meq/Total Parenteral Nutrition/Amino Acids/Dextrose/ Fat Emulsion Intravenous 1,920 ml @ 80 mls/hr TPN CONT 10/10/19 22:00 10/11/19 21:59 DC 10/10/19 21:54 80 MLS/HR Potassium Acetate 60 meq/Magnesium Sulfate 14 meq/ Multivitamins 10 ml/Chromium/ Copper/Manganese/ Seleni/Zn 1 ml/ Insulin Human Regular 15 unit/ Total Parenteral Nutrition/Amino Acids/Dextrose/ Fat Emulsion Intravenous 1,920 ml @ 80 mls/hr TPN CONT 10/09/19 22:00 10/10/19 21:59 DC 10/09/19 22:22 80 MLS/HR Potassium Acetate 60 meq/Magnesium Sulfate 14 meq/ Multivitamins 10 ml/Chromium/ Copper/Manganese/ Seleni/Zn 1 ml/ Insulin Human Regular 20 unit/ Total Parenteral Nutrition/Amino Acids/Dextrose/ Fat Emulsion Intravenous 1,920 ml @ 80 mls/hr TPN CONT 10/06/19 22:00 10/07/19 21:59 DC 10/06/19 22:26 80 MLS/HR Potassium Acetate 60 meq/Magnesium Sulfate 5 meq/ Multivitamins 10 ml/Chromium/ Copper/Manganese/ Seleni/Zn 1 ml/ Insulin Human Regular 30 unit/ Total Parenteral Nutrition/Amino Acids/Dextrose/ Fat Emulsion Intravenous 1,920 ml @ 80 mls/hr TPN CONT 09/24/19 22:00 09/25/19 21:59 DC 09/24/19 21:54 80 MLS/HR Potassium Acetate 65 meq/Magnesium Sulfate 20 meq/ Calcium Gluconate 10 meq/ Multivitamins 10 ml/Chromium/ Copper/Manganese/ Seleni/Zn 0.5 ml/ Insulin Human Regular 30 unit/ Total Parenteral Nutrition/Amino Acids/Dextrose/ Fat Emulsion Intravenous 1,920 ml @ 80 mls/hr TPN CONT 08/17/19 22:00 08/18/19 21:59 DC 08/17/19 22:22 80 MLS/HR Potassium Acetate 80 meq/Magnesium Sulfate 5 meq/ Multivitamins 10 ml/Chromium/ Copper/Manganese/ Seleni/Zn 1 ml/ Insulin Human Regular 20 unit/ Total Parenteral Nutrition/Amino Acids/Dextrose/ Fat Emulsion Intravenous 1,920 ml @ 80 mls/hr TPN CONT 09/23/19 22:00 09/24/19 21:59 DC 09/23/19 21:59 80 MLS/HR Prochlorperazine Edisylate (Compazine) 5 mg PACU PRN PRN 08/15/19 07:00 08/16/19 06:59 DC Propofol (Diprivan) 200 mg STK-MED ONCE 10/18/19 07:44 10/18/19 07:44 DC Ringer's Solution 1,000 ml @ 30 mls/hr Q24H 08/15/19 07:00 08/15/19 18:59 DC Rocuronium [place] (Zemuron) 100 mg STK-MED ONCE 10/18/19 07:44 10/18/19 07:44 DC Saliva Substitute (Biotene Moisturizing Mouth) 2 spray PRN Q15MIN PRN 09/08/19 11:00 Sevoflurane (Ultane) 60 ml STK-MED ONCE 08/15/19 12:26 08/15/19 12:27 DC Sodium Bicarbonate 50 meq/Sodium Chloride 1,050 ml @ 75 mls/hr Q14H 07/06/19 07:30 07/11/19 10:28 DC 07/10/19 21:10 75 MLS/HR Sodium Acetate 50 meq/Potassium Acetate 55 meq/ Magnesium Sulfate 20 meq/Calcium Gluconate 10 meq/ Multivitamins 10 ml/Chromium/ Copper/Manganese/ Seleni/Zn 0.5 ml/ Insulin Human Regular 35 unit/ Total Parenteral Nutrition/Amino Acids/Dextrose/ Fat Emulsion Intravenous 1,800 ml @ 75 mls/hr TPN CONT 08/13/19 22:00 08/14/19 21:59 DC 08/13/19 22:03 75 MLS/HR Sodium Bicarbonate (Sodium Bicarb Adult 8.4% Syr) 50 meq 1X ONCE 09/25/19 22:00 09/25/19 22:01 DC 09/25/19 21:47 50 MEQ Sodium Chloride (Normal Saline Flush) 3 ml QSHIFT PRN 08/15/19 13:45 Sodium Chloride 80 meq/Potassium Chloride 30 meq/ Potassium Acetate 30 meq/Magnesium Sulfate 14 meq/ Multivitamins 10 ml/Chromium/ Copper/Manganese/ Seleni/Zn 1 ml/ Insulin Human Regular 15 unit/ Total Parenteral Nutrition/Amino Acids/Dextrose/ Fat Emulsion Intravenous 1,920 ml @ 80 mls/hr TPN CONT 10/17/19 22:00 10/18/19 21:59 10/17/19 22:09 80 MLS/HR Sodium Chloride 90 meq/Calcium Gluconate 10 meq/ Multivitamins 10 ml/Chromium/ Copper/Manganese/ Seleni/Zn 0.5 ml/ Total Parenteral Nutrition/Amino Acids/Dextrose/ Fat Emulsion Intravenous 1,512 ml @ 63 mls/hr TPN CONT 07/06/19 22:00 07/07/19 21:59 DC 07/06/19 22:06 63 MLS/HR Sodium Chloride 90 meq/Calcium Gluconate 10 meq/ Multivitamins 10 ml/Chromium/ Copper/Manganese/ Seleni/Zn 1 ml/ Total Parenteral Nutrition/Amino Acids/Dextrose/ Fat Emulsion Intravenous 55.005 ml @ 2.292 mls/hr TPN CONT 07/06/19 22:00 07/06/19 12:33 DC Sodium Chloride 90 meq/Magnesium Sulfate 10 meq/ Calcium Gluconate 20 meq/ Multivitamins 10 ml/Chromium/ Copper/Manganese/ Seleni/Zn 0.5 ml/ Total Parenteral Nutrition/Amino Acids/Dextrose/ Fat Emulsion Intravenous 1,512 ml @ 63 mls/hr TPN CONT 07/07/19 22:00 07/08/19 21:59 DC 07/07/19 22:25 63 MLS/HR Sodium Chloride 90 meq/Magnesium Sulfate 12 meq/ Calcium Gluconate 15 meq/ Multivitamins 10 ml/Chromium/ Copper/Manganese/ Seleni/Zn 0.5 ml/ Insulin Human Regular 25 unit/ Total Parenteral Nutrition/Amino Acids/Dextrose/ Fat Emulsion Intravenous 1,400 ml @ 58.333 mls/ hr TPN CONT 07/27/19 22:00 07/28/19 21:59 DC 07/27/19 21:41 58.333 MLS/HR Sodium Chloride 90 meq/Potassium Chloride 15 meq/ Magnesium Sulfate 12 meq/Calcium Gluconate 15 meq/ Multivitamins 10 ml/Chromium/ Copper/Manganese/ Seleni/Zn 0.5 ml/ Insulin Human Regular 25 unit/ Total Parenteral Nutrition/Amino Acids/Dextrose/ Fat Emulsion Intravenous 1,400 ml @ 58.333 mls/ hr TPN CONT 07/26/19 22:00 07/27/19 21:59 DC 07/26/19 22:13 58.333 MLS/HR Sodium Chloride 90 meq/Potassium Chloride 15 meq/ Potassium Phosphate 10 mmol/ Magnesium Sulfate 8 meq/Calcium Gluconate 15 meq/ Multivitamins 10 ml/Chromium/ Copper/Manganese/ Seleni/Zn 0.5 ml/ Insulin Human Regular 25 unit/ Total Parenteral Nutrition/Amino Acids/Dextrose/ Fat Emulsion Intravenous 1,400 ml @ 58.333 mls/ hr TPN CONT 07/24/19 22:00 07/25/19 21:59 DC 07/24/19 21:20 58.333 MLS/HR Sodium Chloride 90 meq/Potassium Chloride 15 meq/ Potassium Phosphate 10 mmol/ Magnesium Sulfate 10 meq/Calcium Gluconate 20 meq/ Multivitamins 10 ml/Chromium/ Copper/Manganese/ Seleni/Zn 0.5 ml/ Total Parenteral Nutrition/Amino Acids/Dextrose/ Fat Emulsion Intravenous 1,400 ml @ 58.333 mls/ hr TPN CONT 07/11/19 22:00 07/12/19 21:59 DC 07/11/19 21:42 58.333 MLS/HR Sodium Chloride 90 meq/Potassium Chloride 15 meq/ Potassium Phosphate 10 mmol/ Magnesium Sulfate 12 meq/Calcium Gluconate 15 meq/ Multivitamins 10 ml/Chromium/ Copper/Manganese/ Seleni/Zn 0.5 ml/ Insulin Human Regular 25 unit/ Total Parenteral Nutrition/Amino Acids/Dextrose/ Fat Emulsion Intravenous 1,400 ml @ 58.333 mls/ hr TPN CONT 07/25/19 22:00 07/26/19 21:59 DC 07/25/19 22:24 58.333 MLS/HR Sodium Chloride 90 meq/Potassium Chloride 15 meq/ Potassium Phosphate 15 mmol/ Magnesium Sulfate 10 meq/Calcium Gluconate 15 meq/ Multivitamins 10 ml/Chromium/ Copper/Manganese/ Seleni/Zn 0.5 ml/ Total Parenteral Nutrition/Amino Acids/Dextrose/ Fat Emulsion Intravenous 1,400 ml @ 58.333 mls/ hr TPN CONT 07/12/19 22:00 07/13/19 21:59 DC 07/12/19 22:17 58.333 MLS/HR Sodium Chloride 90 meq/Potassium Chloride 15 meq/ Potassium Phosphate 15 mmol/ Magnesium Sulfate 10 meq/Calcium Gluconate 20 meq/ Multivitamins 10 ml/Chromium/ Copper/Manganese/ Seleni/Zn 0.5 ml/ Total Parenteral Nutrition/Amino Acids/Dextrose/ Fat Emulsion Intravenous 1,200 ml @ 50 mls/hr TPN CONT 07/10/19 22:00 07/10/19 14:17 DC Sodium Chloride 90 meq/Potassium Chloride 15 meq/ Potassium Phosphate 18 mmol/ Magnesium Sulfate 8 meq/Calcium Gluconate 15 meq/ Multivitamins 10 ml/Chromium/ Copper/Manganese/ Seleni/Zn 0.5 ml/ Insulin Human Regular 10 unit/ Total Parenteral Nutrition/Amino Acids/Dextrose/ Fat Emulsion Intravenous 1,400 ml @ 58.333 mls/ hr TPN CONT 07/15/19 22:00 07/16/19 21:59 DC 07/15/19 21:43 58.333 MLS/HR Sodium Chloride 90 meq/Potassium Chloride 15 meq/ Potassium Phosphate 18 mmol/ Magnesium Sulfate 8 meq/Calcium Gluconate 15 meq/ Multivitamins 10 ml/Chromium/ Copper/Manganese/ Seleni/Zn 0.5 ml/ Insulin Human Regular 15 unit/ Total Parenteral Nutrition/Amino Acids/Dextrose/ Fat Emulsion Intravenous 1,400 ml @ 58.333 mls/ hr TPN CONT 07/18/19 22:00 07/19/19 21:59 DC 07/18/19 21:47 58.333 MLS/HR Sodium Chloride 90 meq/Potassium Chloride 15 meq/ Potassium Phosphate 18 mmol/ Magnesium Sulfate 8 meq/Calcium Gluconate 15 meq/ Multivitamins 10 ml/Chromium/ Copper/Manganese/ Seleni/Zn 0.5 ml/ Insulin Human Regular 20 unit/ Total Parenteral Nutrition/Amino Acids/Dextrose/ Fat Emulsion Intravenous 1,400 ml @ 58.333 mls/ hr TPN CONT 07/21/19 22:00 07/22/19 21:59 DC 07/21/19 22:45 58.333 MLS/HR Sodium Chloride 90 meq/Potassium Chloride 15 meq/ Potassium Phosphate 18 mmol/ Magnesium Sulfate 8 meq/Calcium Gluconate 15 meq/ Multivitamins 10 ml/Chromium/ Copper/Manganese/ Seleni/Zn 0.5 ml/ Total Parenteral Nutrition/Amino Acids/Dextrose/ Fat Emulsion Intravenous 1,400 ml @ 58.333 mls/ hr TPN CONT 07/14/19 22:00 3/27/20 21:59 DC 07/14/19 22:00 58.333 MLS/HR Sodium Chloride 90 meq/Potassium Phosphate 15 mmol/ Magnesium Sulfate 12 meq/Calcium Gluconate 15 meq/ Multivitamins 10 ml/Chromium/ Copper/Manganese/ Seleni/Zn 0.5 ml/ Insulin Human Regular 30 unit/ Total Parenteral Nutrition/Amino Acids/Dextrose/ Fat Emulsion Intravenous 1,400 ml @ 58.333 mls/ hr TPN CONT 07/29/19 22:00 07/30/19 21:59 DC 07/29/19 21:49 58.333 MLS/HR Sodium Chloride 90 meq/Potassium Phosphate 15 mmol/ Magnesium Sulfate 12 meq/Calcium Gluconate 15 meq/ Multivitamins 10 ml/Chromium/ Copper/Manganese/ Seleni/Zn 0.5 ml/ Insulin Human Regular 40 unit/ Total Parenteral Nutrition/Amino Acids/Dextrose/ Fat Emulsion Intravenous 1,400 ml @ 58.333 mls/ hr TPN CONT 07/30/19 22:00 07/31/19 21:59 DC 07/30/19 21:21 58.333 MLS/HR Sodium Chloride 90 meq/Potassium Phosphate 19 mmol/ Magnesium Sulfate 12 meq/Calcium Gluconate 15 meq/ Multivitamins 10 ml/Chromium/ Copper/Manganese/ Seleni/Zn 0.5 ml/ Insulin Human Regular 40 unit/ Total Parenteral Nutrition/Amino Acids/Dextrose/ Fat Emulsion Intravenous 1,400 ml @ 58.333 mls/ hr TPN CONT 07/31/19 22:00 08/01/19 21:59 DC 07/31/19 21:54 58.333 MLS/HR Sodium Chloride 90 meq/Potassium Phosphate 5 mmol/ Magnesium Sulfate 12 meq/Calcium Gluconate 15 meq/ Multivitamins 10 ml/Chromium/ Copper/Manganese/ Seleni/Zn 0.5 ml/ Insulin Human Regular 30 unit/ Total Parenteral Nutrition/Amino Acids/Dextrose/ Fat Emulsion Intravenous 1,400 ml @ 58.333 mls/ hr TPN CONT 07/28/19 22:00 07/29/19 21:59 DC 07/28/19 22:08 58.333 MLS/HR Sodium Chloride 100 meq/Potassium Chloride 40 meq/ Magnesium Sulfate 15 meq/Calcium Gluconate 15 meq/ Multivitamins 10 ml/Chromium/ Copper/Manganese/ Seleni/Zn 0.5 ml/ Insulin Human Regular 35 unit/ Total Parenteral Nutrition/Amino Acids/Dextrose/ Fat Emulsion Intravenous 1,400 ml @ 58.333 mls/ hr TPN CONT 08/07/19 22:00 08/08/19 21:59 DC 08/07/19 22:46 58.333 MLS/HR Sodium Chloride 100 meq/Potassium Chloride 40 meq/ Magnesium Sulfate 20 meq/Calcium Gluconate 10 meq/ Multivitamins 10 ml/Chromium/ Copper/Manganese/ Seleni/Zn 0.5 ml/ Insulin Human Regular 35 unit/ Total Parenteral Nutrition/Amino Acids/Dextrose/ Fat Emulsion Intravenous 1,400 ml @ 58.333 mls/ hr TPN CONT 08/11/19 22:00 08/12/19 21:59 DC 08/12/19 00:06 58.333 MLS/HR Sodium Chloride 100 meq/Potassium Chloride 40 meq/ Magnesium Sulfate 20 meq/Calcium Gluconate 15 meq/ Multivitamins 10 ml/Chromium/ Copper/Manganese/ Seleni/Zn 0.5 ml/ Insulin Human Regular 35 unit/ Total Parenteral Nutrition/Amino Acids/Dextrose/ Fat Emulsion Intravenous 1,400 ml @ 58.333 mls/ hr TPN CONT 08/10/19 22:00 08/11/19 21:59 DC 08/10/19 22:27 58.333 MLS/HR Sodium Chloride 100 meq/Potassium Phosphate 10 mmol/ Magnesium Sulfate 12 meq/Calcium Gluconate 15 meq/ Multivitamins 10 ml/Chromium/ Copper/Manganese/ Seleni/Zn 0.5 ml/ Insulin Human Regular 35 unit/ Potassium Chloride 20 meq/ Total Parenteral Nutrition/Amino Acids/Dextrose/ Fat Emulsion Intravenous 1,400 ml @ 58.333 mls/ hr TPN CONT 08/04/19 22:00 08/05/19 21:59 DC 08/04/19 22:10 58.333 MLS/HR Sodium Chloride 100 meq/Potassium Phosphate 19 mmol/ Magnesium Sulfate 12 meq/Calcium Gluconate 15 meq/ Multivitamins 10 ml/Chromium/ Copper/Manganese/ Seleni/Zn 0.5 ml/ Insulin Human Regular 40 unit/ Potassium Chloride 20 meq/ Total Parenteral Nutrition/Amino Acids/Dextrose/ Fat Emulsion Intravenous 1,400 ml @ 58.333 mls/ hr TPN CONT 08/03/19 22:00 08/04/19 21:59 DC 08/03/19 21:20 58.333 MLS/HR Sodium Chloride 100 meq/Potassium Phosphate 5 mmol/ Magnesium Sulfate 12 meq/Calcium Gluconate 15 meq/ Multivitamins 10 ml/Chromium/ Copper/Manganese/ Seleni/Zn 0.5 ml/ Insulin Human Regular 35 unit/ Potassium Chloride 20 meq/ Total Parenteral Nutrition/Amino Acids/Dextrose/ Fat Emulsion Intravenous 1,400 ml @ 58.333 mls/ hr TPN CONT 08/05/19 22:00 08/06/19 21:59 DC 08/05/19 22:59 58.333 MLS/HR Succinylcholine Chloride (Anectine) 120 mg 1X ONCE 07/11/19 08:30 07/11/19 08:31 DC 07/11/19 08:34 120 MG Vecuronium Chandler (Norcuron Bolus) 6 mg PRN Q6HRS PRN 08/25/19 19:15 08/25/19 19:35 DC Labs: Lab Laboratory Tests Test 10/17/19 11:51 10/18/19 00:24 10/18/19 05:25 10/18/19 05:34 Glucose (Fingerstick) 125 mg/dL (70-99) 128 mg/dL (70-99) 128 mg/dL (70-99) White Blood Count 14.8 x10^3/uL (4.0-11.0) Red Blood Count 2.95 x10^6/uL (3.50-5.40) Hemoglobin 8.1 g/dL (12.0-15.5) Hematocrit 25.1 % (36.0-47.0) Mean Corpuscular Volume 85 fL (79-100) Mean Corpuscular Hemoglobin 27 pg (25-35) Mean Corpuscular Hemoglobin Concent 32 g/dL (31-37) Red Cell Distribution Width 18.2 % (11.5-14.5) Platelet Count 452 x10^3/uL (140-400) Neutrophils (%) (Auto) 80 % (31-73) Lymphocytes (%) (Auto) 10 % (24-48) Monocytes (%) (Auto) 8 % (0-9) Eosinophils (%) (Auto) 1 % (0-3) Basophils (%) (Auto) 0 % (0-3) Neutrophils # (Auto) 11.9 x10^3/uL (1.8-7.7) Lymphocytes # (Auto) 1.4 x10^3/uL (1.0-4.8) Monocytes # (Auto) 1.2 x10^3/uL (0.0-1.1) Eosinophils # (Auto) 0.2 x10^3/uL (0.0-0.7) Basophils # (Auto) 0.0 x10^3/uL (0.0-0.2) Sodium Level 136 mmol/L (136-145) Potassium Level 4.4 mmol/L (3.5-5.1) Chloride Level 101 mmol/L (98-107) Carbon Dioxide Level 34 mmol/L (21-32) Anion Gap 1 (6-14) Blood Urea Nitrogen 14 mg/dL (7-20) Creatinine 0.5 mg/dL (0.6-1.0) Estimated GFR (Cockcroft-Gault) 131.1 BUN/Creatinine Ratio 28 (6-20) Glucose Level 136 mg/dL (70-99) Calcium Level 11.1 mg/dL (8.5-10.1) Phosphorus Level 3.9 mg/dL (2.6-4.7) Magnesium Level 2.1 mg/dL (1.8-2.4) Total Bilirubin 0.4 mg/dL (0.2-1.0) Aspartate Amino Transf (AST/SGOT) 18 U/L (15-37) Alanine Aminotransferase (ALT/SGPT) 12 U/L (14-59) Alkaline Phosphatase 118 U/L (46-116) Total Protein 4.7 g/dL (6.4-8.2) Albumin 1.1 g/dL (3.4-5.0) Albumin/Globulin Ratio 0.3 (1.0-1.7) Triglycerides Level 155 mg/dL (0-150) Micro NEG ALEXANDRA 56 PSEUDOMONAS AERUGINOSA ANTIBIOTIC RESULT INTERPRETATION AMIKACIN <=16 S AZTREONAM >16 R CEFTAZIDIME >16 R CIPROFLOXACIN <=0.25 S CEFEPIME 16 I GENTAMICIN <=2 S LEVOFLOXACIN <=0.5 S CONTINUED ON NEXT PAGE RUN DATE: 09/28/19 [facility] *LIVE* PAGE 2 RUN TIME: 1121 Specimen Inquiry SPEC: [id number] PATIENT: SCOTT CUELLAR [id number] (Continued) Procedure Result --------- --- ANTIMICROBIAL SUSCEPTIBILITY Preliminary (continued) MEROPENEM <=1 S PIPERACILLIN/TAZOBACTAM 64 S TOBRAMYCIN <=2 S Unless otherwise specified, Testing Performed by: [facility] [address] [place] [address] For Inquires, the Physician may contact the Microbiology department at [phone] Objective: Assessment: Patient with prolonged hospitalization more than 3 months Multiple medical problems Multiple surgical procedures Fever intermittently source likely GI Acute pancreatitis with persistent necrosis CT a/p 07/27 Increased ascites. 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 Sequela of pancreatitis with extensive pseudocysts again demonstrated, the right-sided collections are slightly larger since the prior exam, the left-sided collections are stable. 09/24 fluid cult PSAE (MDRO),yeast; treated Cholelithiasis with thickening of the gallbladder wall. Leucocytosis JUANA,Hyperkalemia, Metabolic acidosis off dialysis Acute hypoxic resp failure ,bilateral pleural effusion and atelectasis hypocalcemia Prediabetes HTN s/p trach Pleural effusion status post CTS left side Abdominal fluid culture MDRO Pseudomonas, yeast Plan: Plan of Care cont dapto and merrem ( 10/15) add micafungin Monitor labs/cults abdominal surgery later today Supportive care Contact isolation for CRE/MDRO D/W Mother at bedside Discussed with nursing staff YUNIOR JONES MD Oct 18, 2019 08:19
[2019-10-18] MEDS: MICAFUNGIN 100 MG in IV DEXTROSE 5% 100ML 100 ML IV SCH (08:21)
[2019-10-18] MEDS: ACETYLCYSTEINE 20% for RESP TX 600 MG/3 ML. NEB SCH ×2 (08:30→20:01)
[2019-10-18] MEDS ORDERED: BUPIVACAINE-EPI 0.5%-1:200000 MPF 30 ML VIAL. ONE (08:34)
[2019-10-18] MEDS ORDERED: IOHEXOL 300 MG/ML 50 ML VIAL. ONE (08:35)
[2019-10-18] MEDS: TPN PER PHARMACY MC PRN (09:08)
--- NOTE | 2019-10-18 09:08 | NUR ---
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, 8 inches Weight: 86.5 kg Current diet: NPO LABS: Sodium: 136 Potassium: 4.4 Chloride: 101 Calcium: 11.1 Corrected Calcium: 13.42 Magnesium: 2.1 CO2: 34 SCr: 0.5 Glucose: 136 Albumin: 1.1 AST: 18 ALT: 12 TPN FORMULA: TPN TYPE: Central Continuous AMINO ACIDS: 80 gm DEXTROSE: 250 gm LIPIDS: 20 gm SODIUM CHLORIDE: 80 mEq SODIUM ACETATE: - mEq SODIUM PHOSPHATE: - mmol POTASSIUM CHLORIDE: 30 mEq POTASSIUM ACETATE: 30 mEq POTASSIUM PHOSPHATE: - mmol MAGNESIUM: 14 mEq CALCIUM: - mEq INSULIN: 15 units MULTIPLE VITAMIN: 10 ml TRACE ELEMENTS: 1 ml(s) TPN PLAN: Continue same TPN. R: Continue TPN as above. Will monitor electrolytes, glucose, and tolerance to TPN. HITESH GARZA, [facility], 10/18/19 [id number]
--- NOTE | 2019-10-18 09:21 | PDOC ---
PROGRESS NOTES Chief Complaint Chief Complaint History of Present Illness 48yo F w/ PMHx HTN, prediabetes who presented the emergency room complaints of abdominal pain. Patient described off and on 3 days. She states is constant, described as a squeezing sensation in a band-like distribution. + nausea, vomiting. She denies any fever or diarrhea. Patient denies any abdominal surgical procedures. She stateed is worse with movements, car ride. Pain initially was upper abdomen however now pretty much generalized. Last bowel movement was 07/03/2019. Nothing makes her pain better. Patient denies any shortness of breath. She does state the pain moves into her chest. Denies any headache or visual changes. Lipase 12043, AST 401, ALT 249, Bilirubin 1.4. CT abdomen confirms pancreatic inflammation, peripancreatic fluid and inflammatory changes around the pancreas consistent with pancreatitis. Cholelithiasis and 1.4cm uterine fibroid as well as possible left salpingitis. Admitted for further care Gallstone pancreatitis with necrosis. -CT A/P 09/23 showed multiple pseudocysts, slight larger on the right. s/p drains x , 09/24. + PSAE (MDRO-R Cefepime, Zosyn ALEXANDRA < 64) and yeast, -s/p drain 08/14. C. parapsilosis. s/p drain 08/23 + yeast & high amylase; s/p additional drain on 08/25. Drains removed. Ascites s/p paracentesis 08/02 & 08/23. C. parapsilosis JUANA. off HD. Impression and plan: Acute hypoxic Respiratory failure required mechanical ventilation Tracheostomy bilateral pleural effusions/pulm edema s/p Throacentesis on 10/03/2019 Severe Acute gallstone pancreatitis (not a surgical candidate at this time) with necrosis Acute kidney failure now requiring dialysis Gallstones (Calculus of gallbladder with acute cholecystitis without obstruction) HTN Intractable pain Intractable nausea Covid 19 negative. Acute on chronic anemia EEG: No seizure activityFever - better currently - intermittent could be from underlying pancreatitis blood cults 08/21 - neg so far ? Ileus with vomiting Abd distention - U/S and CT reviewed s/p 0.4 L of opaque, debris-containing ascites was removed 08/23 Acute pancreatitis with persistent necrosis Gallstone pancreatitis with necrosis. -CT A/P 09/23 showed multiple pseudocysts, slight larger on the right. s/p drains x 3, 09/24. + PSAE (MDRO-R Cefepime, Zosyn ALEXANDRA < 64) and yeast, -s/p drain 08/14. C. parapsilosis. s/p drain 08/23 + yeast & high amylase; s/p additional drain on 08/25. Drains removed. Ascites s/p paracentesis 08/02 & 08/23. C. parapsilosis JUANA. off HD. A large fluid collection in the pancreatic bed has slightly decreased in size, described below, the pancreas itself is difficult to visualize, which could be due to necrosis or obscuration of pancreatic parenchyma from the surrounding fluid collection.10/02 - 08/14 status post KAYLIN drain placement + C paropsilosis. s/p additional drains 08/25 Anemia - S/p PRBCs Cholelithiasis with thickening of the gallbladder wall. Leucocytosis improving JUANA, hyperkalemia, Metabolic acidosis off dialysis hypocalcemia Prediabetes HTN s/p trach ESRD on HD Hyperglycemia severe protein-caloric malnutrition Moderate to large left pleural effusion with atelectasis and collapse of most of the left lower lobe, stable FEN - albumin, NS at 80 cc/hr, TPN will start Mucomyst for secretions Off antibiotics PPX - SCDs, off lovenox currently, high risk for thrombosis but in light of her recent anemia and need for transfusion the risks do not outweigh benefits at this time. will continue to evaluate on a daily basis FULL CODE Dispo - ICU, critically ill Poor prognosis 37 MIN CC TIME History of Present Illness History of Present Illness 09/25: IR placed drain on 09/24. 4u PRBC after Hb drop. Hb 8.8 today. Off Levophed this morning. T-max 100.3. Much more lethargic today. CXR with left sided diffuse infiltrates. 09/26: Tachycardic overnight into the 140s. NGT clamped. On BIPAP currently. Drains with serosanguinous discharge. WBC 8, Tmax 99.6F. 09/27: Seen on [facility] in ICU. Hypertensive and tachycardic. Labs stable. blood stained drainage from drains. Afebrile. 09/28: Seen on [facility] in ICU. She is a bit confused, drowsy, but when sitting up is conversational and confusion somewhat clears. She is asking for more pain medication. Stable drains, still very tachy.Na 147 09/29: Patient vomited overnight. Aspirated. Tried to pull her trach out, she was told she would without her trach, she said "I know, I just want to go home". Hb 7.6. Afebrile, still very tachycardic. 1055ml out of right sided KAYLIN drain 09/30: Overnight hypoxic, on BIPAP. CXR with left sided white out lung. Sig nificant mucous plug suctioned by RT with improvement in her ABG after 2 hours this morning. Not really active, tired, lethargic. 890ml out of drains past 24 hours. On vent. D/w daughter bedside. 10/01: Still on vent overnight with copious pulmonary drainage on suctioning. Labs stable, UOP stable 1L. Drain output still significant with 1505mL. She has shown her phone password [id number] and made it clear she does not want her daughters to access her phone at this time. 6:15: Patient quite frail, she has had such a lengthy hospital stay that she is certainly depressed and as documented 3 days ago is wanting to go home. Most likely patient is also tired of being hospitalized with an end point no where in sight. Reassurance and encouragement provided during my visit. Plans for thoracentesis later in the day 10/03: No acute events reported overnight, case discussed with nursing staff patient in no acute distress, complaints of the abdomimal pain during my visit, patient is quite depressed, reassurance has been provided, discussed with nursing staff at bedside, replace electrolytes 10/04 off vent / on TS , no distress 10/17 fever overnight, blood cult, cont dapto and merrem ( 10/15) add micafungin Patient seen and examined ICU BED plan OR 10/17 for necrosectomy, cholecystectomy and feeding tube placement. [id number] prognosis Sputum from 09/30 - growing PSA - may be colonization I to Meropenem Continue meropenem, has MDRP PSAE September 24 from abd bleeding from Sx. site RLQ and firmness)stable oncology consulted Cholelithiasis. Mild thickened appearance of the gallbladder wall. sono 10/12 Mild right hydronephrosis.Fluid collection identified anterior to the pancreas. 10/14/2019 Patient having trouble with secretions this morning, no other complaints, discussed with surgical ASSISTANT PLANT MANAGER. Plans for OR on Thursday. No fever above 99.9 overnight, remains tachycardic, medications reviewed. 10/15/2019 Patient with thick secretions, no other acute events reported overnight. Patient seems to be quite anxious, I have tried to provide reassurance during my encounter regarding her upcoming surgical procedure. Patient seems to be quite anxious and seems to experience panic attacks when she first wakes up thinking that is the day of surgery. At the present time she seems to be medically optimized for planned surgery, discussed with nursing staff at bedside 10/17/2019 Patient seems to be hallucinating and having probably memories from her former life prior to this prolonged hospital stay which is 3 months plus in length. Immediate plans are for surgical intervention on Thursday which will consist of a Whipple procedure. At the present time the patient remains critically stable her prognosis is quite guarded at best. fever last night hallucinations continues to have chest tube in multiple abdominal drains as well. All these are probable source of infection plan OR 10/17 for necrosectomy, cholecystectomy and feeding tube placement. 37 min cc time Date: Aug 15, 2019 Pre-Op Diagnosis: Necrotizing pancreatitis Post-Op Diagnosis: same Procedure Performed: laparoscopic exploration Surgeon: Renzo Servin Asst: Dr. Arturo Harris Anesthesia Type: GETA plus local Blood Loss: 50 Specimans Obtained: cultures, debris Findings: 1000 cc ascites suctioned off, cultures sent, diffuse debris, obliteration of surgical planes preventing any meaningful exploration 09/19/2019 Patient seen and examined in the ICU She appears extremely ill She is tachypneic at 35 respirations per minute and tachycardic at 132 bpm She is extremely encephalopathic and shaky She appears clammy Chart reviewed Discussed with RN Prognosis extremely guarded at best 09/18/2019 Patient still in ICU Resting with no apparent distress Chart reviewed 09/17/2019 Patient seen and examined in the ICU She is wiping her face with a cough Discussed with RN Chart reviewed We hope to get her out of the ICU later today if possible 09/16/2019 Patient seen and examined in the ICU once again She is back on NG suction On IV Zosyn Has IV TPN Sedated with Precedex but anxious still Appears somewhat clammy and pale Chart reviewed Discussed with RN She remains critically ill BRIEF OPERATIVE NOTE Pre-Op Diagnosis Pancreatitis with pseudocysts, suspected infection Post-Op Diagnosis same Procedure Performed CT abdominal Drains x 3 Surgeon Tesfaye Anesthesia Type: Conscious Sedation Findings 3 abdominal drains, 14F, with turbid pancreatic fluid and necrotic debris in each. Complications No immediate 08/26: Patient today somewhat restless and having bilious secretions from ET tube, imaging studies ordered, discussed with workday financials consultant. Pretty poor prognosis, hopefully is not a fistula, poor surgical candidate. 08/27: Imaging with no acute events, she seems more stable today compared to yest mauraay. Encouraged as much activity as possible patient at high risk for severe depression. Vitals Vitals Vital Signs Date Time Temp Pulse Resp B/P (MAP) Pulse Ox O2 Delivery O2 Flow Rate FiO2 10/18/19 08:30 99 Tracheal Collar 8.0 10/18/19 08:00 98.9 119 22 128/77 (94) 98.9 Physical Exam Physical Exam GENERAL: Patient alert awake comfortable HEENT: Anicteric, no thrush, NG tube in place NECK: Tracheostomy LUNGS: Diminished aeration bases, no accessory muscle use - CT on left HEART: S1, S2,regular ABDOMEN: Mild distention, bowel sounds present, soft, grimaces to palpation, drains x 3 : Lind ( 09/24) EXTREMITIES: + edema BLE SKIN: no signs of gen rash LUE-PICC without signs of complications General: Alert, Oriented X3, Cooperative, No acute distress Heart: Regular rate (SR/ST), Other (distant heart sounds) Lungs: Other (diminshed in bases) Abdomen: Soft, No tenderness, Other (drains with pancreatic necrosis) Extremities: No cyanosis, Other (3+ bilateral LE pitting edema) Skin: No rashes, No significant lesion Labs LABS Laboratory Tests Test 10/17/19 11:51 10/18/19 00:24 10/18/19 05:25 10/18/19 05:34 Glucose (Fingerstick) 125 mg/dL (70-99) 128 mg/dL (70-99) 128 mg/dL (70-99) White Blood Count 14.8 x10^3/uL (4.0-11.0) Red Blood Count 2.95 x10^6/uL (3.50-5.40) Hemoglobin 8.1 g/dL (12.0-15.5) Hematocrit 25.1 % (36.0-47.0) Mean Corpuscular Volume 85 fL (79-100) Mean Corpuscular Hemoglobin 27 pg (25-35) Mean Corpuscular Hemoglobin Concent 32 g/dL (31-37) Red Cell Distribution Width 18.2 % (11.5-14.5) Platelet Count 452 x10^3/uL (140-400) Neutrophils (%) (Auto) 80 % (31-73) Lymphocytes (%) (Auto) 10 % (24-48) Monocytes (%) (Auto) 8 % (0-9) Eosinophils (%) (Auto) 1 % (0-3) Basophils (%) (Auto) 0 % (0-3) Neutrophils # (Auto) 11.9 x10^3/uL (1.8-7.7) Lymphocytes # (Auto) 1.4 x10^3/uL (1.0-4.8) Monocytes # (Auto) 1.2 x10^3/uL (0.0-1.1) Eosinophils # (Auto) 0.2 x10^3/uL (0.0-0.7) Basophils # (Auto) 0.0 x10^3/uL (0.0-0.2) Sodium Level 136 mmol/L (136-145) Potassium Level 4.4 mmol/L (3.5-5.1) Chloride Level 101 mmol/L (98-107) Carbon Dioxide Level 34 mmol/L (21-32) Anion Gap 1 (6-14) Blood Urea Nitrogen 14 mg/dL (7-20) Creatinine 0.5 mg/dL (0.6-1.0) Estimated GFR (Cockcroft-Gault) 131.1 BUN/Creatinine Ratio 28 (6-20) Glucose Level 136 mg/dL (70-99) Calcium Level 11.1 mg/dL (8.5-10.1) Phosphorus Level 3.9 mg/dL (2.6-4.7) Magnesium Level 2.1 mg/dL (1.8-2.4) Total Bilirubin 0.4 mg/dL (0.2-1.0) Aspartate Amino Transf (AST/SGOT) 18 U/L (15-37) Alanine Aminotransferase (ALT/SGPT) 12 U/L (14-59) Alkaline Phosphatase 118 U/L (46-116) Total Protein 4.7 g/dL (6.4-8.2) Albumin 1.1 g/dL (3.4-5.0) Albumin/Globulin Ratio 0.3 (1.0-1.7) Triglycerides Level 155 mg/dL (0-150) Assessment and Plan Assessmemt and Plan Problems Medical Problems: (1) Acute pancreatitis Status: Acute (2) Cholelithiasis Status: Acute Comment Review of Relevant I have reviewed the following items kolby (where applicable) has been applied. Labs Laboratory Tests Test 10/16/19 11:52 10/17/19 00:09 10/17/19 05:53 10/17/19 06:00 Glucose (Fingerstick) 128 mg/dL (70-99) 123 mg/dL (70-99) 125 mg/dL (70-99) Sodium Level 137 mmol/L (136-145) Potassium Level 4.4 mmol/L (3.5-5.1) Chloride Level 101 mmol/L (98-107) Carbon Dioxide Level 35 mmol/L (21-32) Anion Gap 1 (6-14) Blood Urea Nitrogen 16 mg/dL (7-20) Creatinine 0.7 mg/dL (0.6-1.0) Estimated GFR (Cockcroft-Gault) 88.9 Glucose Level 129 mg/dL (70-99) Calcium Level 10.7 mg/dL (8.5-10.1) Test 10/17/19 11:51 10/18/19 00:24 10/18/19 05:25 10/18/19 05:34 Glucose (Fingerstick) 125 mg/dL (70-99) 128 mg/dL (70-99) 128 mg/dL (70-99) White Blood Count 14.8 x10^3/uL (4.0-11.0) Red Blood Count 2.95 x10^6/uL (3.50-5.40) Hemoglobin 8.1 g/dL (12.0-15.5) Hematocrit 25.1 % (36.0-47.0) Mean Corpuscular Volume 85 fL (79-100) Mean Corpuscular Hemoglobin 27 pg (25-35) Mean Corpuscular Hemoglobin Concent 32 g/dL (31-37) Red Cell Distribution Width 18.2 % (11.5-14.5) Platelet Count 452 x10^3/uL (140-400) Neutrophils (%) (Auto) 80 % (31-73) Lymphocytes (%) (Auto) 10 % (24-48) Monocytes (%) (Auto) 8 % (0-9) Eosinophils (%) (Auto) 1 % (0-3) Basophils (%) (Auto) 0 % (0-3) Neutrophils # (Auto) 11.9 x10^3/uL (1.8-7.7) Lymphocytes # (Auto) 1.4 x10^3/uL (1.0-4.8) Monocytes # (Auto) 1.2 x10^3/uL (0.0-1.1) Eosinophils # (Auto) 0.2 x10^3/uL (0.0-0.7) Basophils # (Auto) 0.0 x10^3/uL (0.0-0.2) Sodium Level 136 mmol/L (136-145) Potassium Level 4.4 mmol/L (3.5-5.1) Chloride Level 101 mmol/L (98-107) Carbon Dioxide Level 34 mmol/L (21-32) Anion Gap 1 (6-14) Blood Urea Nitrogen 14 mg/dL (7-20) Creatinine 0.5 mg/dL (0.6-1.0) Estimated GFR (Cockcroft-Gault) 131.1 BUN/Creatinine Ratio 28 (6-20) Glucose Level 136 mg/dL (70-99) Calcium Level 11.1 mg/dL (8.5-10.1) Phosphorus Level 3.9 mg/dL (2.6-4.7) Magnesium Level 2.1 mg/dL (1.8-2.4) Total Bilirubin 0.4 mg/dL (0.2-1.0) Aspartate Amino Transf (AST/SGOT) 18 U/L (15-37) Alanine Aminotransferase (ALT/SGPT) 12 U/L (14-59) Alkaline Phosphatase 118 U/L (46-116) Total Protein 4.7 g/dL (6.4-8.2) Albumin 1.1 g/dL (3.4-5.0) Albumin/Globulin Ratio 0.3 (1.0-1.7) Triglycerides Level 155 mg/dL (0-150) Laboratory Tests Test 10/17/19 11:51 10/18/19 00:24 10/18/19 05:25 10/18/19 05:34 Glucose (Fingerstick) 125 mg/dL (70-99) 128 mg/dL (70-99) 128 mg/dL (70-99) White Blood Count 14.8 x10^3/uL (4.0-11.0) Red Blood Count 2.95 x10^6/uL (3.50-5.40) Hemoglobin 8.1 g/dL (12.0-15.5) Hematocrit 25.1 % (36.0-47.0) Mean Corpuscular Volume 85 fL (79-100) Mean Corpuscular Hemoglobin 27 pg (25-35) Mean Corpuscular Hemoglobin Concent 32 g/dL (31-37) Red Cell Distribution Width 18.2 % (11.5-14.5) Platelet Count 452 x10^3/uL (140-400) Neutrophils (%) (Auto) 80 % (31-73) Lymphocytes (%) (Auto) 10 % (24-48) Monocytes (%) (Auto) 8 % (0-9) Eosinophils (%) (Auto) 1 % (0-3) Basophils (%) (Auto) 0 % (0-3) Neutrophils # (Auto) 11.9 x10^3/uL (1.8-7.7) Lymphocytes # (Auto) 1.4 x10^3/uL (1.0-4.8) Monocytes # (Auto) 1.2 x10^3/uL (0.0-1.1) Eosinophils # (Auto) 0.2 x10^3/uL (0.0-0.7) Basophils # (Auto) 0.0 x10^3/uL (0.0-0.2) Sodium Level 136 mmol/L (136-145) Potassium Level 4.4 mmol/L (3.5-5.1) Chloride Level 101 mmol/L (98-107) Carbon Dioxide Level 34 mmol/L (21-32) Anion Gap 1 (6-14) Blood Urea Nitrogen 14 mg/dL (7-20) Creatinine 0.5 mg/dL (0.6-1.0) Estimated GFR (Cockcroft-Gault) 131.1 BUN/Creatinine Ratio 28 (-20) Glucose Level 136 mg/dL (70-99) Calcium Level 11.1 mg/dL (8.5-10.1) Phosphorus Level 3.9 mg/dL (2.6-4.7) Magnesium Level 2.1 mg/dL (1.8-2.4) Total Bilirubin 0.4 mg/dL (0.2-1.0) Aspartate Amino Transf (AST/SGOT) 18 U/L (15-37) Alanine Aminotransferase (ALT/SGPT) 12 U/L (14-59) Alkaline Phosphatase 118 U/L (46-116) Total Protein 4.7 g/dL (6.4-8.2) Albumin 1.1 g/dL (3.4-5.0) Albumin/Globulin Ratio 0.3 (1.0-1.7) Triglycerides Level 155 mg/dL (0-150) Microbiology 10/16/19 Blood Culture - Preliminary, Resulted NO GROWTH AFTER 1 DAY 10/03/19 Gram Stain - Final, Complete 10/03/19 Aerobic and Anaerobic Culture - Final, Complete 10/01/19 Gram Stain Evaluation - Final, Complete 10/01/19 Respiratory Culture - Final, Complete 10/01/19 Antimicrobic Susceptibility - Final, Complete 09/25/19 Urine Culture - Final, Complete 09/17/19 Gram Stain - Final, Complete 09/17/19 Aerobic Culture - Final, Complete Medications Current Medications Sodium Chloride 1,000 ml @ 1,000 mls/hr Q1H IV Last administered on 07/04/19at 03:00; Start 07/04/19 at 03:00; Stop 07/04/19 at 03:59; Status DC Ondansetron HCl (Zofran) 4 mg 1X ONCE IVP Last administered on 07/04/19at 03:27; Start 07/04/19 at 03:00; Stop 07/04/19 at 03:01; Status DC Morphine Sulfate (Morphine Sulfate) 4 mg 1X ONCE IV ; Start 07/04/19 at 03:00; Stop 07/04/19 at 03:01; Status Cancel Ketorolac Tromethamine (Toradol 30mg Vial) 30 mg 1X ONCE IV Last administered on 07/04/19at 02:54; Start 07/04/19 at 03:00; Stop 07/04/19 at 03:01; Status DC Fentanyl Citrate (Fentanyl 2ml Vial) 25 mcg 1X ONCE IVP Last administered on 07/04/19at 03:23; Start 07/04/19 at 03:30; Stop 07/04/19 at 03:31; Status DC Fentanyl Citrate (Fentanyl 2ml Vial) 100 mcg STK-MED ONCE .ROUTE ; Start at 03:18; Stop 07/04/19 at 03:18; Status DC Iohexol (Omnipaque 350 Mg/ml) 90 ml 1X ONCE IV Last administered on 07/04/19at 03:25; Start 07/04/19 at 03:30; Stop 07/04/19 at 03:31; Status DC Info (CONTRAST GIVEN -- Rx MONITORING) 1 each PRN DAILY PRN MC SEE COMMENTS; Start 07/04/19 at 03:30; Stop 07/06/19 at 03:29; Status DC Hydromorphone HCl (Dilaudid) 0.5 mg 1X ONCE IV Last administered on 07/04/19at 03:55; Start 07/04/19 at 04:30; Stop 07/04/19 at 04:32; Status DC Ondansetron HCl (Zofran) 4 mg PRN Q8HRS PRN IV NAUSEA/VOMITING 1ST CHOICE; Start 07/04/19 at 05:00; Stop 07/04/19 at 09:27; Status DC Morphine Sulfate (Morphine Sulfate) 2 mg PRN Q2HR PRN IV SEVERE PAIN 7-10 Last administered on 07/05/19at 12:26; Start 07/04/19 at 05:00; Stop 07/05/19 at 14:15; Status DC Sodium Chloride 1,000 ml @ 125 mls/hr Q8H IV Last administered on 07/04/19at 20:56; Start 07/04/19 at 05:00; Stop 07/05/19 at 04:59; Status DC Hydromorphone HCl (Dilaudid) 0.5 mg PRN Q3HRS PRN IV SEVERE PAIN 7-10 Last administered on 07/05/19at 10:06; Start 07/04/19 at 05:00; Stop 07/05/19 at 12:01; Status DC Piperacillin Sod/ Tazobactam Sod 4.5 gm/Sodium Chloride 100 ml @ 200 mls/hr 1X ONCE IV Last administered on 07/04/19at 05:44; Start 07/04/19 at 06:00; Stop 07/04/19 at 06:29; Status DC Ondansetron HCl (Zofran) 4 mg PRN Q4HRS PRN IV NAUSEA/VOMITING 1ST CHOICE Last administered on 10/15/19at 13:37; Start 07/04/19 at 09:30 Insulin Human Lispro (HumaLOG) 0-9 UNITS Q6HRS SQ Last administered on 10/12/19at 18:05; Start 07/04/19 at 09:30 Dextrose (Dextrose 50%-Water Syringe) 12.5 gm PRN Q15MIN PRN IV SEE COMMENTS; Start 07/04/19 at 09:30 Pantoprazole Sodium (PROTONIX VIAL for IV PUSH) 40 mg DAILYAC IVP Last administered on 10/18/19at 07:45; Start 07/04/19 at 11:30 Prochlorperazine Edisylate (Compazine) 10 mg PRN Q6HRS PRN IV NAUSEA/VOMITING, 2nd CHOICE Last administered on 10/15/19at 10:53; Start 07/04/19 at 17:45 Atenolol (Tenormin) 100 mg DAILY PO ; Start 07/05/19 at 09:00; Stop 07/04/19 at 20:08; Status DC Metoprolol Tartrate (Lopressor Vial) 2.5 mg Q6HRS IVP Last administered on 07/05/19at 05:51; Start 07/04/19 at 20:15; Stop 07/05/19 at 10:02; Status DC Metoprolol Tartrate (Lopressor Vial) 5 mg Q6HRS IVP Last administered on 07/14/19at 00:12; Start 07/05/19 at 10:15; Stop 07/16/19 at 08:48; Status DC Hydromorphone HCl (Dilaudid) 1 mg PRN Q3HRS PRN IV SEVERE PAIN 7-10 Last administered on 07/11/19at 05:13; Start 07/05/19 at 12:00; Stop 07/19/19 at 00:25; Status DC Lidocaine HCl (Buffered Lidocaine 1%) 3 ml STK-MED ONCE .ROUTE ; Start 07/05/19 at 12:55; Stop 07/05/19 at 12:56; Status DC Albumin Human 500 ml @ 125 mls/hr 1X ONCE IV Last administered on 07/05/19at 14:33; Start 07/05/19 at 14:30; Stop 07/05/19 at 18:32; Status DC Norepinephrine Bitartrate 8 mg/ Dextrose 258 ml @ 17.299 mls/ hr CONT PRN IV PER PROTOCOL Last administered on 08/02/19at 12:48; Start 07/05/19 at 15:30; Stop 08/05/19 at 09:19; Status DC Sodium Chloride 1,000 ml @ 125 mls/hr Q8H IV Last administered on 07/05/19at 21:04; Start 07/05/19 at 16:00; Stop 07/06/19 at 02:42; Status DC Albumin Human 500 ml @ 125 mls/hr PRN BID PRN IV After every 2L NSS & BP < 90mm Last administered on 09/24/19at 11:40; Start 07/05/19 at 16:00 Iohexol (Omnipaque 300 Mg/ml) 60 ml 1X ONCE IV Last administered on 07/05/19at 17:20; Start 07/05/19 at 17:00; Stop 07/05/19 at 17:01; Status DC Info (CONTRAST GIVEN -- Rx MONITORING) 1 each PRN DAILY PRN MC SEE COMMENTS; Start 07/05/19 at 17:00; Stop 07/07/19 at 16:59; Status DC Meropenem 1 gm/ Sodium Chloride 100 ml @ 200 mls/hr Q8HRS IV Last administered on 07/06/19at 05:45; Start 07/05/19 at 20:00; Stop 07/06/19 at 08:48; Status DC Furosemide (Lasix) 40 mg 1X ONCE IVP Last administered on 07/05/19at 22:12; Start 07/05/19 at 22:30; Stop 07/05/19 at 22:31; Status DC Calcium Chloride 1000 mg/Sodium Chloride 110 ml @ 220 mls/hr 1X ONCE IV Last administered on 07/05/19at 22:11; Start 07/05/19 at 22:30; Stop 07/05/19 at 22:59; Status DC Albuterol Sulfate (Ventolin Neb Soln) 2.5 mg 1X ONCE NEB Last administered on 07/06/19at 00:56; Start 07/05/19 at 22:30; Stop 07/05/19 at 22:31; Status DC Insulin Human Regular (HumuLIN R VIAL) 5 unit 1X ONCE IV Last administered on 07/05/19at 22:14; Start 07/05/19 at 22:30; Stop 07/05/19 at 22:31; Status DC Magnesium Sulfate 50 ml @ 25 mls/hr 1X ONCE IV Last administered on 07/06/19at 02:57; Start 07/06/19 at 03:00; Stop 07/06/19 at 04:59; Status DC Calcium Gluconate 1000 mg/Sodium Chloride 110 ml @ 220 mls/hr 1X ONCE IV Last administered on 07/06/19at 02:46; Start 07/06/19 at 03:00; Stop 07/06/19 at 03:29; Status DC Sodium Chloride 1,000 ml @ 200 mls/hr Q5H IV Last administered on 07/06/19at 02:46; Start 07/06/19 at 03:00; Stop 07/06/19 at 10:21; Status DC Calcium Gluconate 1000 mg/Sodium Chloride 110 ml @ 220 mls/hr 1X ONCE IV Last administered on 07/06/19at 03:21; Start 07/06/19 at 03:30; Stop 07/06/19 at 03:59; Status DC Sodium Bicarbonate 50 meq/Sodium Chloride 1,050 ml @ 75 mls/hr Q14H IV Last administered on 07/10/19at 21:10; Start 07/06/19 at 07:30; Stop 07/11/19 at 10:28; Status DC Calcium Gluconate 2000 mg/Sodium Chloride 120 ml @ 220 mls/hr 1X ONCE IV Last administered on 07/06/19at 09:05; Start 07/06/19 at 07:30; Stop 07/06/19 at 08:02; Status DC Lidocaine HCl (Xylocaine-Mpf 1% 2ml Vial) 2 ml STK-MED ONCE .ROUTE ; Start at 08:47; Stop 07/06/19 at 08:47; Status DC Meropenem 500 mg/ Sodium Chloride 50 ml @ 100 mls/hr Q12HR IV Last adminis tered on 07/11/19at 21:01; Start 07/06/19 at 18:00; Stop 07/12/19 at 07:58; Status DC Lidocaine HCl (Buffered Lidocaine 1%) 3 ml STK-MED ONCE .ROUTE ; Start 07/06/19 at 09:46; Stop 07/06/19 at 09:46; Status DC Lidocaine HCl (Buffered Lidocaine 1%) 6 ml 1X ONCE INJ Last administered on 07/06/19at 10:26; Start 07/06/19 at 10:15; Stop 07/06/19 at 10:16; Status DC Info (Tpn Per Pharmacy) 1 each PRN DAILY PRN MC SEE COMMENTS Last administered on 10/18/19at 09:08; Start 07/06/19 at 12:00 Sodium Chloride 1,000 ml @ 1,000 mls/hr Q1H PRN IV hypotension; Start 07/06/19 at 12:07; Stop 07/06/19 at 18:06; Status DC Diphenhydramine HCl (Benadryl) 25 mg 1X PRN PRN IV ITCHING; Start 07/06/19 at 12:15; Stop 07/07/19 at 12:14; Status DC Diphenhydramine HCl (Benadryl) 25 mg 1X PRN PRN IV ITCHING; Start 07/06/19 at 12:15; Stop 07/07/19 at 12:14; Status DC Sodium Chloride 1,000 ml @ 400 mls/hr Q2H30M PRN IV PATENCY; Start 07/06/19 at 12:07; Stop 07/07/19 at 00:06; Status DC Info (PHARMACY MONITORING -- do not chart) 1 each PRN DAILY PRN MC SEE COMMENTS; Start 07/06/19 at 12:15; Stop 07/08/19 at 08:13; Status DC Sodium Chloride 90 meq/Calcium Gluconate 10 meq/ Multivitamins 10 ml/Chromium/ Copper/Manganese/ Seleni/Zn 1 ml/ Total Parenteral Nutrition/Amino Acids/Dextros e/ Fat Emulsion Intravenous 55.005 ml @ 2.292 mls/hr TPN CONT IV ; Start 07/06/19 at 22:00; Stop 07/06/19 at 12:33; Status DC Info (Tpn Per Pharmacy) 1 each PRN DAILY PRN MC SEE COMMENTS; Start 07/06/19 at 12:30; Status UNV Sodium Chloride 90 meq/Calcium Gluconate 10 meq/ Multivitamins 10 ml/Chromium/ Copper/Manganese/ Seleni/Zn 0.5 ml/ Total Parenteral Nutrition/Amino Acids/D extrose/ Fat Emulsion Intravenous 1,512 ml @ 63 mls/hr TPN CONT IV Last administered on 07/06/19at 22:06; Start 07/06/19 at 22:00; Stop 07/07/19 at 21:59; Status DC Calcium Carbonate/ Glycine (Tums) 500 mg PRN AFTMEALHC PRN PO INDIGESTION; Start 07/06/19 at 17:45; Stop 08/31/19 at 10:25; Status DC Calcium Gluconate (Calcium Gluconate) 2,000 mg 1X ONCE IVP Last administered o n 07/07/19at 02:19; Start 07/07/19 at 02:15; Stop 07/07/19 at 02:16; Status DC Calcium Chloride 3000 mg/Sodium Chloride 1,030 ml @ 50 mls/hr [id number] IV Last administered on 07/09/19at 02:17; Start 07/07/19 at 08:00; Stop 07/09/19 at 15:23; Status DC Lorazepam (Ativan Inj) 1 mg PRN Q4HRS PRN IVP ANXIETY / AGITATION, 2nd choic Last administered on 08/05/19at 03:51; Start 07/07/19 at 09:00; Stop 08/05/19 at 09:19; Status DC Sodium Chloride 1,000 ml @ 1,000 mls/hr Q1H PRN IV hypotension; Start 07/07/19 at 08:56; Stop 07/07/19 at 14:55; Status DC Albumin Human 200 ml @ 200 mls/hr 1X PRN PRN IV Hypotension; Start 07/07/19 at 09:00; Stop 07/07/19 at 14:59; Status DC Diphenhydramine HCl (Benadryl) 25 mg 1X PRN PRN IV ITCHING; Start 07/07/19 at 09:00; Stop 07/08/19 at 08:59; Status DC Diphenhydramine HCl (Benadryl) 25 mg 1X PRN PRN IV ITCHING; Start 07/07/19 at 09:00; Stop 07/08/19 at 08:59; Status DC Sodium Chloride 1,000 ml @ 400 mls/hr Q2H30M PRN IV PATENCY; Start 07/07/19 at 08:56; Stop 07/07/19 at 20:55; Status DC Info (PHARMACY MONITORING -- do not chart) 1 each PRN DAILY PRN MC SEE COMMENTS; Start 07/07/19 at 09:00; Status UNV Info (PHARMACY MONITORING -- do not chart) 1 each PRN DAILY PRN MC SEE COMMENTS; Start 07/07/19 at 09:00; Stop 07/08/19 at 08:13; Status DC Digoxin (Lanoxin) 500 mcg 1X ONCE IV Last administered on 07/07/19at 10:04; Start 07/07/19 at 10:00; Stop 07/07/19 at 10:01; Status DC Digoxin (Lanoxin) 125 mcg 1X ONCE IV Last administered on 07/07/19at 17:10; Start 07/07/19 at 18:00; Stop 07/07/19 at 18:01; Status DC Magnesium Sulfate 100 ml @ 25 mls/hr 1X ONCE IV Last administered on 07/07/19at 12:48; Start 07/07/19 at 13:00; Stop 07/07/19 at 16:59; Status DC Sodium Chloride 90 meq/Magnesium Sulfate 10 meq/ Calcium Gluconate 20 meq/ Multivitamins 10 ml/Chromium/ Copper/Manganese/ Seleni/Zn 0.5 ml/ Total Parenteral Nutrition/Amino Acids/Dextrose/ Fat Emulsion Intravenous 1,512 ml @ 63 mls/hr TPN CONT IV Last administered on 07/07/19at 22:25; Start 07/07/19 at 22:00; Stop 07/08/19 at 21:59; Status DC Sodium Chloride 1,000 ml @ 1,000 mls/hr Q1H PRN IV hypotension; Start 07/08/19 at 08:05; Stop 07/08/19 at 14:04; Status DC Albumin Human 200 ml @ 200 mls/hr 1X ONCE IV Last administered on 07/08/19at 08:57; Start 07/08/19 at 08:15; Stop 07/08/19 at 09:14; Status DC Diphenhydramine HCl (Benadryl) 25 mg 1X PRN PRN IV ITCHING; Start 07/08/19 at 08:15; Stop 07/09/19 at 08:14; Status DC Diphenhydramine HCl (Benadryl) 25 mg 1X PRN PRN IV ITCHING; Start 07/08/19 at 08:15; Stop 07/09/19 at 08:14; Status DC Sodium Chloride 1,000 ml @ 400 mls/hr Q2H30M PRN IV PATENCY; Start 07/08/19 at 08:05; Stop 07/08/19 at 20:04; Status DC Info (PHARMACY MONITORING -- do not chart) 1 each PRN DAILY PRN MC SEE COMMENTS; Start 07/08/19 at 08:15; Stop 07/12/19 at 07:57; Status DC Sodium Chloride 90 meq/Potassium Chloride 15 meq/ Potassium Phosphate 10 mmol/ Magnesium Sulfate 10 meq/Calcium Gluconate 20 meq/ Multivitamins 10 ml/Chromium/ Copper/Manganese/ Seleni/Zn 0.5 ml/ Total Parenteral Nutrition/Amino Acids/Dextrose/ Fat Emulsion Intravenous 1,512 ml @ 63 mls/hr TPN CONT IV Last administered on 07/08/19at 21:01; Start 07/08/19 at 22:00; Stop 07/09/19 at 21:59; Status DC Potassium Chloride/Water 100 ml @ 100 mls/hr 1X ONCE IV Last administered on 07/08/19at 14:09; Start 07/08/19 at 14:00; Stop 07/08/19 at 14:59; Status DC Benzocaine (Hurricaine One) 1 spray 1X ONCE MM Last administered on 07/08/19at 16:38; Start 07/08/19 at 14:30; Stop 07/08/19 at 14:31; Status DC Lidocaine HCl (Glydo (Lidocaine) Jelly) 1 ramu 1X ONCE MM Last administered on 07/08/19at 16:38; Start 07/08/19 at 14:30; Stop 07/08/19 at 14:31; Status DC Linezolid/Dextrose 300 ml @ 300 mls/hr Q12HR IV Last administered on 07/14/19at 21:04; Start 07/08/19 at 20:00; Stop 07/15/19 at 07:50; Status DC Acetaminophen (Tylenol) 650 mg PRN Q6HRS PRN PO MILD PAIN / TEMP; Start 07/09/19 at 03:30; Stop 07/09/19 at 03:36; Status DC Acetaminophen (Tylenol) 650 mg PRN Q6HRS PRN PEG MILD PAIN / TEMP Last administered on 08/04/19at 19:56; Start 07/09/19 at 03:36; Stop 08/31/19 at 10:25; Status DC Sodium Chloride 1,000 ml @ 1,000 mls/hr Q1H PRN IV hypotension; Start 07/09/19 at 07:50; Stop 07/09/19 at 13:49; Status DC Albumin Human 200 ml @ 200 mls/hr 1X PRN PRN IV Hypotension; Start 07/09/19 at 08:00; Stop 07/09/19 at 13:59; Status DC Sodium Chloride (Normal Saline Flush) 10 ml 1X PRN PRN IV AP catheter pack; Start 07/09/19 at 08:00; Stop 07/10/19 at 07:59; Status DC Sodium Chloride (Normal Saline Flush) 10 ml 1X PRN PRN IV [employer] catheter pack; Start 07/09/19 at 08:00; Stop 07/10/19 at 07:59; Status DC Sodium Chloride 1,000 ml @ 400 mls/hr Q2H30M PRN IV PATENCY; Start 07/09/19 at 07:50; Stop 07/09/19 at 19:49; Status DC Info (PHARMACY MONITORING -- do not chart) 1 each PRN DAILY PRN MC SEE COMMENTS; Start 07/09/19 at 08:00; Status UNV Info (PHARMACY MONITORING -- do not chart) 1 each PRN DAILY PRN MC SEE CO MMENTS; Start 07/09/19 at 08:00; Stop 07/11/19 at 08:25; Status DC Sodium Chloride 90 meq/Potassium Chloride 15 meq/ Potassium Phosphate 10 mmol/ Magnesium Sulfate 10 meq/Calcium Gluconate 20 meq/ Multivitamins 10 ml/Chromium/ Copper/Manganese/ Seleni/Zn 0.5 ml/ Total Parenteral Nutrition/Amino Acids/Dextrose/ Fat Emulsion Intravenous 1,512 ml @ 63 mls/hr TPN CONT IV Last administered on 07/09/19at 20:57; Start 07/09/19 at 22:00; Stop 07/10/19 at 21:59; Status DC Sodium Chloride 90 meq/Potassium Chloride 15 meq/ Potassium Phosphate 15 mmol/ Magnesium Sulfate 10 meq/Calcium Gluconate 20 meq/ Multivitamins 10 ml/Chromium/ Copper/Manganese/ Seleni/Zn 0.5 ml/ Total Parenteral Nutrition/Amino Acids/Dextrose/ Fat Emulsion Intravenous 1,512 ml @ 63 mls/hr TPN CONT IV ; Start 07/10/19 at 22:00; Stop 07/10/19 at 14:16; Status DC Sodium Chloride 90 meq/Potassium Chloride 15 meq/ Potassium Phosphate 15 mmol/ Magnesium Sulfate 10 meq/Calcium Gluconate 20 meq/ Multivitamins 10 ml/Chromium/ Copper/Manganese/ Seleni/Zn 0.5 ml/ Total Parenteral Nutrition/Amino Acids/Dextrose/ Fat Emulsion Intravenous 1,200 ml @ 50 mls/hr TPN CONT IV ; Start 07/10/19 at 22:00; Stop 07/10/19 at 14:17; Status DC Sodium Chloride 90 meq/Potassium Chloride 15 meq/ Potassium Phosphate 10 mmol/ Magnesium Sulfate 10 meq/Calcium Gluconate 20 meq/ Multivitamins 10 ml/Chromium/ Copper/Manganese/ Seleni/Zn 0.5 ml/ Total Parenteral Nutrition/Amino Acids/Dextrose/ Fat Emulsion Intravenous 1,200 ml @ 50 mls/hr TPN CONT IV Last administered on 07/10/19at 23:29; Start 07/10/19 at 22:00; Stop 07/11/19 at 21:59; Status DC Sodium Chloride 1,000 ml @ 1,000 mls/hr Q1H PRN IV hypotension; Start 07/11/19 at 07:28; Stop 07/11/19 at 13:27; Status DC Albumin Human 200 ml @ 200 mls/hr 1X ONCE IV Last administered on 07/11/19at 08:51; Start 07/11/19 at 07:30; Stop 07/11/19 at 08:29; Status DC Diphenhydramine HCl (Benadryl) 25 mg 1X PRN PRN IV ITCHING; Start 07/11/19 at 07:30; Stop 07/12/19 at 07:29; Status DC Diphenhydramine HCl (Benadryl) 25 mg 1X PRN PRN IV ITCHING; Start 07/11/19 at 07:30; Stop 07/12/19 at 07:29; Status DC Sodium Chloride 1,000 ml @ 400 mls/hr Q2H30M PRN IV PATENCY; Start 07/11/19 at 07:28; Stop 07/11/19 at 19:27; Status DC Info (PHARMACY MONITORING -- do not chart) 1 each PRN DAILY PRN MC SEE COMMENTS; Start 07/11/19 at 07:30; Stop 07/22/19 at 13:01; Status DC Metronidazole 100 ml @ 100 mls/hr Q6HRS IV Last administered on 07/27/19at 06:26; Start 07/11/19 at 08:30; Stop 07/27/19 at 09:58; Status DC Micafungin Sodium 100 mg/Dextrose 100 ml @ 100 mls/hr Q24H IV Last administered on 08/18/19at 08:18; Start 07/11/19 at 09:00; Stop 08/18/19 at 20:58; Status DC Propofol 0 ml @ As Directed STK-MED ONCE IV ; Start 07/11/19 at 07:53; Stop 07/11/19 at 07:53; Status DC Etomidate (Amidate) 20 mg STK-MED ONCE IV ; Start 07/11/19 at 07:53; Stop 07/11/19 at 07:54; Status DC Midazolam HCl (Versed) 5 mg STK-MED ONCE .ROUTE ; Start 07/11/19 at 07:57; Stop 07/11/19 at 07:57; Status DC Fentanyl Citrate 30 ml @ 0 mls/hr CONT PRN IV SEE PROTOCOL Last administered on 08/05/19at 06:12; Start 07/11/19 at 08:15; Stop 08/05/19 at 09:19; Status DC Artificial Tears (Artificial Tears) 1 drop PRN Q1HR PRN OU DRY EYE, 1st choice; Start 07/11/19 at 08:15; Stop 08/17/19 at 05:31; Status DC Midazolam HCl 50 mg/Sodium Chloride 50 ml @ 0 mls/hr CONT PRN IV SEE PROTOCOL Last administered on 07/14/19at 22:39; Start 07/11/19 at 08:15; Stop 07/16/19 at 15:59; Status DC Etomidate (Amidate) 8 mg 1X ONCE IV Last administered on 07/11/19at 08:33; Start 07/11/19 at 08:30; Stop 07/11/19 at 08:31; Status DC Succinylcholine Chloride (Anectine) 120 mg 1X ONCE IV Last administered on 07/11/19at 08:34; Start 07/11/19 at 08:30; Stop 07/11/19 at 08:31; Status DC Midazolam HCl (Versed) 5 mg 1X ONCE IV ; Start 07/11/19 at 08:30; Stop 07/11/19 at 08:31; Status DC Potassium Chloride 15 meq/ Bicarbonate Dialysis Soln w/ out KCl 5,007.5 ml @ 1,000 mls/ hr Q5H1M IV Last administered on 07/12/19at 11:11; Start 07/11/19 at 12:00; Stop 07/12/19 at 11:15; Status DC Potassium Chloride 15 meq/ Bicarbonate Dialysis Soln w/ out KCl 5,007.5 ml @ 1,000 mls/ hr Q5H1M IV Last administered on 07/12/19at 11:12; Start 07/11/19 at 12:00; Stop 07/12/19 at 11:17; Status DC Potassium Chloride 15 meq/ Bicarbonate Dialysis Soln w/ out KCl 5,007.5 ml @ 1,000 mls/ hr Q5H1M IV Last administered on 07/12/19at 11:11; Start 07/11/19 at 12:00; Stop 07/12/19 at 11:19; Status DC Sodium Chloride 90 meq/Potassium Chloride 15 meq/ Potassium Phosphate 10 mmol/ Magnesium Sulfate 10 meq/Calcium Gluconate 20 meq/ Multivitamins 10 ml/Chromium/ Copper/Manganese/ Seleni/Zn 0.5 ml/ Total Parenteral Nutrition/Amino Acids/Dextrose/ Fat Emulsion Intravenous 1,400 ml @ 58.333 mls/ hr TPN CONT IV Last administered on 07/11/19at 21:42; Start 07/11/19 at 22:00; Stop 07/12/19 at 21:59; Status DC Heparin Sodium (Porcine) (Heparin Sodium) 5,000 unit Q8HRS SQ Last administered on 07/16/19at 05:55; Start 07/11/19 at 15:00; Stop 07/16/19 at 13:28; Status DC Meropenem 500 mg/ Sodium Chloride 50 ml @ 100 mls/hr Q6HRS IV Last admi nistered on 07/13/19at 06:00; Start 07/12/19 at 09:00; Stop 07/13/19 at 07:29; Status DC Potassium Phosphate 20 mmol/ Sodium Chloride 106.6667 ml @ 51.667 m... 1X ONCE IV Last administered on 07/12/19at 11:22; Start 07/12/19 at 10:15; Stop 07/12/19 at 12:18; Status DC Acetaminophen (Tylenol Supp) 650 mg PRN Q6HRS PRN [place] MILD PAIN / TEMP > 100.3'F Last administered on 10/17/19at 18:16; Start 07/12/19 at 10:30 Potassium Chloride/Water 100 ml @ 100 mls/hr Q1H IV Last administered on 07/12/19at 12:12; Start 07/12/19 at 11:00; Stop 07/12/19 at 12:59; Status DC Potassium Chloride 20 meq/ Bicarbonate Dialysis Soln w/ out KCl 5,010 ml @ 1,000 mls/hr Q5H1M IV Last administered on 07/13/19at 08:48; Start 07/12/19 at 12:00; Stop 07/13/19 at 13:03; Status DC Potassium Chloride 20 meq/ Bicarbonate Dialysis Soln w/ out KCl 5,010 ml @ 1,000 mls/hr Q5H1M IV Last administered on 07/17/19at 14:52; Start 07/12/19 at 11:30; Stop 07/17/19 at 19:59; Status DC Potassium Chloride 20 meq/ Bicarbonate Dialysis Soln w/ out KCl 5,010 ml @ 1,000 mls/hr Q5H1M IV Last administered on 07/17/19at 14:53; Start 07/12/19 at 11:30; Stop 07/17/19 at 19:59; Status DC Sodium Chloride 90 meq/Potassium Chloride 15 meq/ Potassium Phosphate 15 mmol/ Magnesium Sulfate 10 meq/Calcium Gluconate 15 meq/ Multivitamins 10 ml/Chromium/ Copper/Manganese/ Seleni/Zn 0.5 ml/ Total Parenteral Nutrition/Amino Acids/Dextrose/ Fat Emulsion Intravenous 1,400 ml @ 58.333 mls/ hr TPN CONT IV Last administered on 07/12/19at 22:17; Start 07/12/19 at 22:00; Stop 07/13/19 at 21:59; Status DC Cefepime HCl (Maxipime) 2 gm Q12HR IVP Last administered on 07/26/19at 20:56; Start 07/13/19 at 09:00; Stop 07/27/19 at 09:58; Status DC Daptomycin 500 mg/ Sodium Chloride 50 ml @ 100 mls/hr Q48H IV Last administered on 07/29/19at 09:57; Start 07/13/19 at 08:30; Stop 07/29/19 at 10:07; Status DC Lidocaine HCl (Buffered Lidocaine 1%) 3 ml 1X ONCE INJ Last administered on 07/13/19at 10:27; Start 07/13/19 at 10:30; Stop 07/13/19 at 10:31; Status DC Potassium Phosphate 20 mmol/ Sodium Chloride 106.6667 ml @ 51.667 m... 1X ONCE IV Last administered on 07/13/19at 12:51; Start 07/13/19 at 13:00; Stop 07/13/19 at 15:03; Status DC Sodium Chloride 90 meq/Potassium Chloride 15 meq/ Potassium Phosphate 18 mmol/ Magnesium Sulfate 8 meq/Calcium Gluconate 15 meq/ Multivitamins 10 ml/Chromium/ Copper/Manganese/ Seleni/Zn 0.5 ml/ Total Parenteral Nutrition/Amino A cids/Dextrose/ Fat Emulsion Intravenous 1,400 ml @ 58.333 mls/ hr TPN CONT IV Last administered on 07/13/19at 22:16; Start 07/13/19 at 22:00; Stop 07/14/19 at 21:59; Status DC Potassium Chloride 20 meq/ Bicarbonate Dialysis Soln w/ out KCl 5,010 ml @ 1 ,000 mls/hr Q5H1M IV Last administered on 07/17/19at 14:54; Start 07/13/19 at 16:00; Stop 07/17/19 at 19:59; Status DC Multi-Ingred Cream/Lotion/Oil/ Oint (Artificial Tears Eye Ointment) 1 ramu PRN Q1HR PRN OU DRY EYE, 2nd choice Last administered on 08/01/19at 08:19; Start 07/13/19 at 17:30; Stop 09/21/19 at 14:39; Status DC Sodium Chloride 90 meq/Potassium Chloride 15 meq/ Potassium Phosphate 18 mmol/ Magnesium Sulfate 8 meq/Calcium Gluconate 15 meq/ Multivitamins 10 ml/Chromium/ Copper/Manganese/ Seleni/Zn 0.5 ml/ Total Parenteral Nutrition/Amino Acids/Dextrose/ Fat Emulsion Intravenous 1,400 ml @ 58.333 mls/ hr TPN CONT IV Last administered on 07/14/19at 22:00; Start 07/14/19 at 22:00; Stop 07/15/19 at 21:59; Status DC Albumin Human 500 ml @ 125 mls/hr 1X ONCE IV ; Start 07/14/19 at 14:15; Stop 07/14/19 at 18:14; Status DC Sodium Chloride 90 meq/Potassium Chloride 15 meq/ Potassium Phosphate 18 mmol/ Magnesium Sulfate 8 meq/Calcium Gluconate 15 meq/ Multivitamins 10 ml/Chromium/ Copper/Manganese/ Seleni/Zn 0.5 ml/ Insulin Human Regular 10 unit/ Total Parenteral Nutrition/Amino Acids/Dextrose/ Fat Emulsion Intravenous 1,400 ml @ 58.333 mls/ hr TPN CONT IV Last administered on 07/15/19at 21:43; Start 07/15/19 at 22:00; Stop 07/16/19 at 21:59; Status DC Lidocaine HCl (Buffered Lidocaine 1%) 3 ml STK-MED ONCE .ROUTE ; Start 07/13/19 at 10:00; Stop 07/15/19 at 13:57; Status DC Midazolam HCl 100 mg/Sodium Chloride 100 ml @ 7 mls/hr CONT PRN IV SEE PROTOCOL Last administered on 07/27/19at 15:35; Start 07/16/19 at 16:00; Stop 09/21/19 at 14:38; Status DC Sodium Chloride 90 meq/Potassium Chloride 15 meq/ Potassium Phosphate 18 mmol/ Magnesium Sulfate 8 meq/Calcium Gluconate 15 meq/ Multivitamins 10 ml/Chromium/ Copper/Manganese/ Seleni/Zn 0.5 ml/ Insulin Human Regular 15 unit/ Total Parenteral Nutrition/Amino Acids/Dextrose/ Fat Emulsion Intravenous 1,400 ml @ 58.333 mls/ hr TPN CONT IV Last administered on 07/16/19at 20:34; Start 07/16/19 at 22:00; Stop 07/17/19 at 21:59; Status DC Info (Icu Electrolyte Protocol) 1 ea CONT PRN PRN MC PER PROTOCOL; Start 07/17/19 at 13:15 Sodium Chloride 90 meq/Potassium Chloride 15 meq/ Potassium Phosphate 18 mmol/ Magnesium Sulfate 8 meq/Calcium Gluconate 15 meq/ Multivitamins 10 ml/Chromium/ Copper/Manganese/ Seleni/Zn 0.5 ml/ Insulin Human Regular 15 unit/ Total Parenteral Nutrition/Amino Acids/Dextrose/ Fat Emulsion Intravenous 1,400 ml @ 58.333 mls/ hr TPN CONT IV Last administered on 07/17/19at 22:05; Start 07/17/19 at 22:00; Stop 07/18/19 at 21:59; Status DC Potassium Chloride 15 meq/ Bicarbonate Dialysis Soln w/ out KCl 5,007.5 ml @ 1,000 mls/ hr Q5H1M IV Last administered on 07/20/19at 18:14; Start 07/17/19 at 20:00; Stop 07/21/19 at 13:08; Status DC Potassium Chloride 15 meq/ Bicarbonate Dialysis Soln w/ out KCl 5,007.5 ml @ 1,000 mls/ hr Q5H1M IV Last administered on 07/20/19at 18:14; Start 07/17/19 at 20:00; Stop 07/21/19 at 13:08; Status DC Potassium Chloride 15 meq/ Bicarbonate Dialysis Soln w/ out KCl 5,007.5 ml @ 1,000 mls/ hr Q5H1M IV Last administered on 07/20/19at 18:14; Start 07/17/19 at 20:00; Stop 07/21/19 at 13:08; Status DC Iohexol (Omnipaque 240 Mg/ml) 30 ml 1X ONCE PO Last administered on 07/18/19at 11:30; Start 07/18/19 at 11:30; Stop 07/18/19 at 11:33; Status DC Info (CONTRAST GIVEN -- Rx MONITORING) 1 each PRN DAILY PRN MC SEE COMMENTS; Start 07/18/19 at 11:45; Stop 07/20/19 at 11:44; Status DC Sodium Chloride 90 meq/Potassium Chloride 15 meq/ Potassium Phosphate 18 mmol/ Magnesium Sulfate 8 meq/Calcium Gluconate 15 meq/ Multivitamins 10 ml/Chromium/ Copper/Manganese/ Seleni/Zn 0.5 ml/ Insulin Human Regular 15 unit/ Total Parenteral Nutrition/Amino Acids/Dextrose/ Fat Emulsion Intravenous 1,400 ml @ 58.333 mls/ hr TPN CONT IV Last administered on 07/18/19at 21:47; Start 07/18/19 at 22:00; Stop 07/19/19 at 21:59; Status DC Sodium Chloride 90 meq/Potassium Chloride 15 meq/ Potassium Phosphate 18 mmol/ Magnesium Sulfate 8 meq/Calcium Gluconate 15 meq/ Multivitamins 10 ml/Chromium/ Copper/Manganese/ Seleni/Zn 0.5 ml/ Insulin Human Regular 20 unit/ Total Parenteral Nutrition/Amino Acids/Dextrose/ Fat Emulsion Intravenous 1,400 ml @ 58.333 mls/ hr TPN CONT IV Last administered on 07/19/19at 21:36; Start 07/19/19 at 22:00; Stop 07/20/19 at 21:59; Status DC Alteplase, Recombinant (Cathflo For Central Catheter Clearance) 1 mg 1X ONCE INT CAT Last administered on 07/19/19at 20:03; Start 07/19/19 at 19:30; Stop 07/19/19 at 19:46; Status DC Alteplase, Recombinant (Cathflo For Central Catheter Clearance) 1 mg 1X ONCE INT CAT Last administered on 07/19/19at 22:05; Start 07/19/19 at 22:00; Stop 07/19/19 at 22:01; Status DC Sodium Chloride 90 meq/Potassium Chloride 15 meq/ Potassium Phosphate 18 mmol/ Magnesium Sulfate 8 meq/Calcium Gluconate 15 meq/ Multivitamins 10 ml/Chromium/ Copper/Manganese/ Seleni/Zn 0.5 ml/ Insulin Human Regular 20 unit/ Total Parenteral Nutrition/Amino Acids/Dextrose/ Fat Emulsion Intravenous 1,400 ml @ 58.333 mls/ hr TPN CONT IV Last administered on 07/20/19at 21:30; Start 07/20/19 at 22:00; Stop 07/21/19 at 21:59; Status DC Dexmedetomidine HCl 400 mcg/ Sodium Chloride 100 ml @ 0 mls/hr CONT PRN IV ANXIETY / AGITATION Last administered on 09/17/19at 12:57; Start 07/21/19 at 08:15; Stop 09/17/19 at 18:31; Status DC Sodium Chloride 500 ml @ 500 mls/hr 1X PRN PRN IV ELEVATED BP, SEE COMMENTS; Start 07/21/19 at 08:15 Atropine Sulfate (ATROPINE 0.5mg SYRINGE) 0.5 mg PRN Q5MIN PRN IV SEE COMMENTS; Start 07/21/19 at 08:15 Furosemide (Lasix) 20 mg 1X ONCE IVP Last administered on 07/21/19at 08:19; Start 07/21/19 at 08:15; Stop 07/21/19 at 08:16; Status DC Lidocaine HCl (Buffered Lidocaine 1%) 3 ml STK-MED ONCE .ROUTE ; Start 07/21/19 at 08:39; Stop 07/21/19 at 08:39; Status DC Lidocaine HCl (Buffered Lidocaine 1%) 6 ml 1X ONCE INJ Last administered on 07/21/19at 09:05; Start 07/21/19 at 09:00; Stop 07/21/19 at 09:06; Status DC Sodium Chloride 90 meq/Potassium Chloride 15 meq/ Potassium Phosphate 18 mmol/ Magnesium Sulfate 8 meq/Calcium Gluconate 15 meq/ Multivitamins 10 ml/Chromium/ Copper/Manganese/ Seleni/Zn 0.5 ml/ Insulin Human Regular 20 unit/ Total Parenteral Nutrition/Amino Acids/Dextrose/ Fat Emulsion Intravenous 1,400 ml @ 58.333 mls/ hr TPN CONT IV Last administered on 07/21/19at 22:45; Start 07/21/19 at 22:00; Stop 07/22/19 at 21:59; Status DC Sodium Chloride 1,000 ml @ 1,000 mls/hr Q1H PRN IV hypotension; Start 07/22/19 at 07:30; Stop 07/22/19 at 13:29; Status DC Albumin Human 200 ml @ 200 mls/hr 1X PRN PRN IV Hypotension Last administered on 07/22/19at 09:36; Start 07/22/19 at 07:30; Stop 07/22/19 at 13:29; Status DC Sodium Chloride (Normal Saline Flush) 10 ml 1X PRN PRN IV AP catheter pack; Start 07/22/19 at 07:30; Stop 07/22/19 at 21:29; Status DC Sodium Chloride (Normal Saline Flush) 10 ml 1X PRN PRN IV [employer] catheter pack; Start 07/22/19 at 07:30; Stop 07/23/19 at 07:29; Status DC Sodium Chloride 1,000 ml @ 400 mls/hr Q2H30M PRN IV PATENCY; Start 07/22/19 at 07:30; Stop 07/22/19 at 19:29; Status DC Info (PHARMACY MONITORING -- do not chart) 1 each PRN DAILY PRN MC SEE COMMENTS; Start 07/22/19 at 07:30; Stop 07/22/19 at 13:02; Status DC Info (PHARMACY MONITORING -- do not chart) 1 each PRN DAILY PRN MC SEE COMMENTS; Start 07/22/19 at 07:30; Stop 07/24/19 at 12:45; Status DC Sodium Chloride 90 meq/Potassium Chloride 15 meq/ Potassium Phosphate 10 mmol/ Magnesium Sulfate 8 meq/Calcium Gluconate 15 meq/ Multivitamins 10 ml/Chromium/ Copper/Manganese/ Seleni/Zn 0.5 ml/ Insulin Human Regular 25 unit/ Total Parenteral Nutrition/Amino Acids/Dextrose/ Fat Emulsion Intravenous 1,400 ml @ 58.333 mls/ hr TPN CONT IV Last administered on 07/22/19at 22:19; Start 07/22/19 at 22:00; Stop 07/23/19 at 21:59; Status DC Heparin Sodium (Porcine) (Heparin Sodium) 5,000 unit Q12HR SQ Last administered on 08/14/19at 08:59; Start 07/22/19 at 21:00; Stop 08/14/19 at 10:05; Status DC Ondansetron HCl (Zofran) 4 mg PRN Q6HRS PRN IV NAUSEA/VOMITING; Start 07/25/19 at 07:00; Stop 07/26/19 at 06:59; Status DC Fentanyl Citrate (Fentanyl 2ml Vial) 25 mcg PRN Q5MIN PRN IV MILD PAIN 1-3; Start 07/25/19 at 07:00; Stop 07/26/19 at 06:59; Status DC Fentanyl Citrate (Fentanyl 2ml Vial) 50 mcg PRN Q5MIN PRN IV MODERATE TO SEVERE PAIN; Start 07/25/19 at 07:00; Stop 07/26/19 at 06:59; Status DC Ringer's Solution 1,000 ml @ 30 mls/hr Q24H IV ; Start 07/25/19 at 07:00; Stop 07/25/19 at 18:59; Status DC Lidocaine HCl (Xylocaine-Mpf 1% 2ml Vial) 2 ml PRN 1X PRN ID PRIOR TO IV START; Start 07/25/19 at 07:00; Stop 07/26/19 at 06:59; Status DC Prochlorperazine Edisylate (Compazine) 5 mg PACU PRN PRN IV NAUSEA, MRX1; Start 07/25/19 at 07:00; Stop 07/26/19 at 06:59; Status DC Sodium Chloride 1,000 ml @ 1,000 mls/hr Q1H PRN IV hypotension; Start 07/23/19 at 09:10; Stop 07/23/19 at 15:09; Status DC Albumin Human 200 ml @ 200 mls/hr 1X PRN PRN IV Hypotension Last administered on 07/23/19at 10:10; Start 07/23/19 at 09:15; Stop 07/23/19 at 15:14; Status DC Sodium Chloride 1,000 ml @ 400 mls/hr Q2H30M PRN IV PATENCY; Start 07/23/19 at 09:10; Stop 07/23/19 at 21:09; Status DC Info (PHARMACY MONITORING -- do not chart) 1 each PRN DAILY PRN MC SEE COMMENTS; Start 07/23/19 at 09:15; Stop 07/24/19 at 12:45; Status DC Info (PHARMACY MONITORING -- do not chart) 1 each PRN DAILY PRN MC SEE COMMENTS; Start 07/23/19 at 09:15; Stop 07/24/19 at 12:45; Status DC Sodium Chloride 90 meq/Potassium Chloride 15 meq/ Potassium Phosphate 10 mmol/ Magnesium Sulfate 8 meq/Calcium Gluconate 15 meq/ Multivitamins 10 ml/Chromium/ Copper/Manganese/ Seleni/Zn 0.5 ml/ Insulin Human Regular 25 unit/ Total Parenteral Nutrition/Amino Acids/Dextrose/ Fat Emulsion Intravenous 1,400 ml @ 58.333 mls/ hr TPN CONT IV Last administered on 07/23/19at 22:10; Start 07/23/19 at 22:00; Stop 07/24/19 at 21:59; Status DC Magnesium Sulfate 50 ml @ 25 mls/hr PRN DAILY PRN IV for Mag < 1.7 on am labs Last administered on 10/06/19at 10:57; Start 07/24/19 at 09:15 Sodium Chloride 90 meq/Potassium Chloride 15 meq/ Potassium Phosphate 10 mmol/ Magnesium Sulfate 8 meq/Calcium Gluconate 15 meq/ Multivitamins 10 ml/Chromium/ Copper/Manganese/ Seleni/Zn 0.5 ml/ Insulin Human Regular 25 unit/ Total Parenteral Nutrition/Amino Acids/Dextrose/ Fat Emulsion Intravenous 1,400 ml @ 58.333 mls/ hr TPN CONT IV Last administered on 07/24/19at 21:20; Start 07/24/19 at 22:00; Stop 07/25/19 at 21:59; Status DC Sodium Chloride 1,000 ml @ 1,000 mls/hr Q1H PRN IV hypotension; Start 07/24/19 at 12:23; Stop 07/24/19 at 18:22; Status DC Albumin Human 200 ml @ 200 mls/hr 1X ONCE IV Last administered on 07/24/19at 13:34; Start 07/24/19 at 12:30; Stop 07/24/19 at 13:29; Status DC Diphenhydramine HCl (Benadryl) 25 mg 1X PRN PRN IV ITCHING; Start 07/24/19 at 12:30; Stop 07/25/19 at 12:29; Status DC Diphenhydramine HCl (Benadryl) 25 mg 1X PRN PRN IV ITCHING; Start 07/24/19 at 12:30; Stop 07/25/19 at 12:29; Status DC Info (PHARMACY MONITORING -- do not chart) 1 each PRN DAILY PRN MC SEE COMMENTS; Start 07/24/19 at 12:30; Status Cancel Bupivacaine HCl/ Epinephrine Bitart (Sensorcain-Epi 0.5%-1:516108 Mpf) 30 ml STK-MED ONCE .ROUTE Last administered on 07/25/19at 11:44; Start 07/25/19 at 11:00; Stop 07/25/19 at 11:01; Status DC Cellulose (Surgicel Fibrillar 1x2) 1 each STK-MED ONCE .ROUTE ; Start 07/25/19 at 11:00; Stop 07/25/19 at 11:01; Status DC Sodium Chloride 90 meq/Potassium Chloride 15 meq/ Potassium Phosphate 10 mmol/ Magnesium Sulfate 12 meq/Calcium Gluconate 15 meq/ Multivitamins 10 ml/Chromium/ Copper/Manganese/ Seleni/Zn 0.5 ml/ Insulin Human Regular 25 unit/ Total Parenteral Nutrition/Amino Acids/Dextrose/ Fat Emulsion Intravenous 1,400 ml @ 58.333 mls/ hr TPN CONT IV Last administered on 07/25/19at 22:24; Start 07/25/19 at 22:00; Stop 07/26/19 at 21:59; Status DC Propofol 20 ml @ As Directed STK-MED ONCE IV ; Start 07/25/19 at 11:07; Stop 07/25/19 at 11:07; Status DC Cellulose (Surgicel Hemostat 4x8) 1 each STK-MED ONCE .ROUTE Last administered on 07/25/19at 11:44; Start 07/25/19 at 11:55; Stop 07/25/19 at 11:56; Status DC Sevoflurane (Ultane) 60 ml STK-MED ONCE IH ; Start 07/25/19 at 12:46; Stop 07/25/19 at 12:46; Status DC Sodium Chloride 1,000 ml @ 1,000 mls/hr Q1H PRN IV hypotension; Start 07/25/19 at 13:51; Stop 07/25/19 at 19:50; Status DC Albumin Human 200 ml @ 200 mls/hr 1X PRN PRN IV Hypotension Last administered on 07/25/19at 14:51; Start 07/25/19 at 14:00; Stop 07/25/19 at 19:59; Status DC Diphenhydramine HCl (Benadryl) 25 mg 1X PRN PRN IV ITCHING; Start 07/25/19 at 14:00; Stop 07/26/19 at 13:59; Status DC Diphenhydramine HCl (Benadryl) 25 mg 1X PRN PRN IV ITCHING; Start 07/25/19 at 14:00; Stop 07/26/19 at 13:59; Status DC Sodium Chloride 1,000 ml @ 400 mls/hr Q2H30M PRN IV PATENCY; Start 07/25/19 at 13:51; Stop 07/26/19 at 01:50; Status DC Info (PHARMACY MONITORING -- do not chart) 1 each PRN DAILY PRN MC SEE COMMENTS; Start 07/25/19 at 14:00; Stop 07/28/19 at 08:16; Status DC Heparin Sodium (Porcine) (Hep Lock Adult) 500 unit STK-MED ONCE IVP ; Start 07/26/19 at 09:29; Stop 07/26/19 at 09:30; Status DC Sodium Chloride 1,000 ml @ 1,000 mls/hr Q1H PRN IV hypotension; Start 07/26/19 at 10:43; Stop 07/26/19 at 16:42; Status DC Sodium Chloride 1,000 ml @ 400 mls/hr Q2H30M PRN IV PATENCY; Start 07/26/19 at 10:43; Stop 07/26/19 at 22:42; Status DC Info (PHARMACY MONITORING -- do not chart) 1 each PRN DAILY PRN MC SEE COMMENTS; Start 07/26/19 at 10:45; Status UNV Info (PHARMACY MONITORING -- do not chart) 1 each PRN DAILY PRN MC SEE COMMENTS; Start 07/26/19 at 10:45; Status UNV Sodium Chloride 90 meq/Potassium Chloride 15 meq/ Magnesium Sulfate 12 meq/Calcium Gluconate 15 meq/ Multivitamins 10 ml/Chromium/ Copper/Manganese/ Seleni/Zn 0.5 ml/ Insulin Human Regular 25 unit/ Total Parenteral Nutrition/Amino Acids/Dextrose/ Fat Emulsion Intravenous 1,400 ml @ 58.333 mls/ hr TPN CONT IV Last administered on 07/26/19at 22:13; Start 07/26/19 at 22:00; Stop 07/27/19 at 21:59; Status DC Sodium Chloride 1,000 ml @ 1,000 mls/hr Q1H PRN IV hypotension; Start 07/27/19 at 07:50; Stop 07/27/19 at 13:49; Status DC Albumin Human 200 ml @ 200 mls/hr 1X ONCE IV ; Start 07/27/19 at 08:00; Stop 07/27/19 at 08:53; Status DC Diphenhydramine HCl (Benadryl) 25 mg 1X PRN PRN IV ITCHING; Start 07/27/19 at 08:00; Stop 07/28/19 at 07:59; Status DC Diphenhydramine HCl (Benadryl) 25 mg 1X PRN PRN IV ITCHING; Start 07/27/19 at 08:00; Stop 07/28/19 at 07:59; Status DC Info (PHARMACY MONITORING -- do not chart) 1 each PRN DAILY PRN MC SEE COMMENT S; Start 07/27/19 at 08:00; Stop 07/28/19 at 08:16; Status DC Albumin Human 50 ml @ 50 mls/hr 1X ONCE IV ; Start 07/27/19 at 08:53; Stop 07/27/19 at 08:56; Status DC Albumin Human 200 ml @ 50 mls/hr PRN 1X PRN IV HYPOTENSION Last administered on 08/02/19at 11:54; Start 07/27/19 at 09:00; Stop 09/08/19 at 11:14; Status DC Meropenem 500 mg/ Sodium Chloride 50 ml @ 100 mls/hr Q12H IV Last administered on 08/16/19at 10:45; Start 07/27/19 at 10:00; Stop 08/16/19 at 12:37; Status DC Sodium Chloride 90 meq/Magnesium Sulfate 12 meq/ Calcium Gluconate 15 meq/ Multivitamins 10 ml/Chromium/ Copper/Manganese/ Seleni/Zn 0.5 ml/ Insulin Human Regular 25 unit/ Total Parenteral Nutrition/Amino Acids/Dextrose/ Fat Emulsion Intravenous 1,400 ml @ 58.333 mls/ hr TPN CONT IV Last administered on 07/27/19at 21:41; Start 07/27/19 at 22:00; Stop 07/28/19 at 21:59; Status DC Sodium Chloride 1,000 ml @ 1,000 mls/hr Q1H PRN IV hypotension; Start 07/28/19 at 07:58; Stop 07/28/19 at 13:57; Status DC Albumin Human 200 ml @ 200 mls/hr 1X PRN PRN IV Hypotension Last administered on 07/28/19at 09:30; Start 07/28/19 at 08:00; Stop 07/28/19 at 13:59; Status DC Sodium Chloride 1,000 ml @ 400 mls/hr Q2H30M PRN IV PATENCY; Start 07/28/19 at 07:58; Stop 07/28/19 at 19:57; Status DC Info (PHARMACY MONITORING -- do not chart) 1 each PRN DAILY PRN MC SEE COMMENTS; Start 07/28/19 at 08:00; Status Cancel Info (PHARMACY MONITORING -- do not chart) 1 each PRN DAILY PRN MC SEE COMMENTS; Start 07/28/19 at 08:15; Status UNV Sodium Chloride 90 meq/Potassium Phosphate 5 mmol/ Magnesium Sulfate 12 meq/Calcium Gluconate 15 meq/ Multivitamins 10 ml/Chromium/ Copper/Manganese/ Seleni/Zn 0.5 ml/ Insulin Human Regular 30 unit/ Total Parenteral Nutrition/Amino Acids/Dextrose/ Fat Emulsion Intravenous 1,400 ml @ 58.333 mls/ hr TPN CONT IV Last administered on 07/28/19at 22:08; Start 07/28/19 at 22:00; Stop 07/29/19 at 21:59; Status DC Linezolid/Dextrose 300 ml @ 300 mls/hr Q12HR IV Last administered on 08/08/19at 20:40; Start 07/29/19 at 11:00; Stop 08/09/19 at 08:10; Status DC Sodium Chloride 90 meq/Potassium Phosphate 15 mmol/ Magnesium Sulfate 12 meq/Calcium Gluconate 15 meq/ Multivitamins 10 ml/Chromium/ Copper/Manganese/ Seleni/Zn 0.5 ml/ Insulin Human Regular 30 unit/ Total Parenteral Nutrition/Amino Acids/Dextrose/ Fat Emulsion Intravenous 1,400 ml @ 58.333 mls/ hr TPN CONT IV Last administered on 07/29/19at 21:49; Start 07/29/19 at 22:00; Stop 07/30/19 at 21:59; Status DC Sodium Chloride 90 meq/Potassium Phosphate 15 mmol/ Magnesium Sulfate 12 meq/Calcium Gluconate 15 meq/ Multivitamins 10 ml/Chromium/ Copper/Manganese/ Seleni/Zn 0.5 ml/ Insulin Human Regular 40 unit/ Total Parenteral Nutrition/Amino Acids/Dextrose/ Fat Emulsion Intravenous 1,400 ml @ 58.333 mls/ hr TPN CONT IV Last administered on 07/30/19at 21:21; Start 07/30/19 at 22:00; Stop 07/31/19 at 21:59; Status DC Sodium Chloride 1,000 ml @ 1,000 mls/hr Q1H PRN IV hypotension; Start 07/30/19 at 13:26; Stop 07/30/19 at 19:25; Status DC Albumin Human 200 ml @ 200 mls/hr 1X PRN PRN IV Hypotension Last administered on 07/30/19at 15:00; Start 07/30/19 at 13:30; Stop 07/30/19 at 19:29; Status DC Sodium Chloride (Normal Saline Flush) 10 ml 1X PRN PRN IV AP catheter pack; Start 07/30/19 at 13:30; Stop 07/31/19 at 13:29; Status DC Sodium Chloride (Normal Saline Flush) 10 ml 1X PRN PRN IV [employer] catheter pack; Start 07/30/19 at 13:30; Stop 07/31/19 at 13:29; Status DC Sodium Chloride 1,000 ml @ 400 mls/hr Q2H30M PRN IV PATENCY; Start 07/30/19 at 13:26; Stop 07/31/19 at 01:25; Status DC Info (PHARMACY MONITORING -- do not chart) 1 each PRN DAILY PRN MC SEE COMMENTS; Start 07/30/19 at 13:30; Stop 07/30/19 at 13:33; Status DC Info (PHARMACY MONITORING -- do not chart) 1 each PRN DAILY PRN MC SEE COMMENTS; Start 07/30/19 at 13:30; Stop 07/30/19 at 13:34; Status DC Sodium Chloride 90 meq/Potassium Phosphate 19 mmol/ Magnesium Sulfate 12 meq/Calcium Gluconate 15 meq/ Multivitamins 10 ml/Chromium/ Copper/Manganese/ Seleni/Zn 0.5 ml/ Insulin Human Regular 40 unit/ Total Parenteral Nutrition/Amino Acids/Dextrose/ Fat Emulsion Intravenous 1,400 ml @ 58.333 mls/ hr TPN CONT IV Last administered on 07/31/19at 21:54; Start 07/31/19 at 22:00; Stop 08/01/19 at 21:59; Status DC Sodium Chloride 1,000 ml @ 1,000 mls/hr Q1H PRN IV hypotension; Start 08/01/19 at 09:35; Stop 08/01/19 at 15:34; Status DC Albumin Human 200 ml @ 200 mls/hr 1X PRN PRN IV Hypotension; Start 08/01/19 at 09:45; Stop 08/01/19 at 15:44; Status DC Diphenhydramine HCl (Benadryl) 25 mg 1X PRN PRN IV ITCHING; Start 08/01/19 at 09:45; Stop 08/02/19 at 09:44; Status DC Diphenhydramine HCl (Benadryl) 25 mg 1X PRN PRN IV ITCHING; Start 08/01/19 at 09:45; Stop 08/02/19 at 09:44; Status DC Sodium Chloride 1,000 ml @ 400 mls/hr Q2H30M PRN IV PATENCY; Start 08/01/19 at 09:35; Stop 08/01/19 at 21:34; Status DC Info (PHARMACY MONITORING -- do not chart) 1 each PRN DAILY PRN MC SEE COMMENTS; Start 08/01/19 at 09:45; Status Cancel Sodium Chloride 100 meq/Potassium Phosphate 19 mmol/ Magnesium Sulfate 12 meq/Calcium Gluconate 15 meq/ Multivitamins 10 ml/Chromium/ Copper/Manganese/ Seleni/Zn 0.5 ml/ Insulin Human Regular 40 unit/ Potassium Chloride 20 meq/ Total Parenteral Nutrition/Amino Acids/Dextrose/ Fat Emulsion Intravenous 1,400 ml @ 58.333 mls/ hr TPN CONT IV Last administered on 08/01/19at 22:02; Start 08/01/19 at 22:00; Stop 08/02/19 at 21:59; Status DC Furosemide (Lasix) 40 mg 1X ONCE IVP Last administered on 08/01/19at 14:39; Start 08/01/19 at 14:30; Stop 08/01/19 at 14:31; Status DC Metronidazole 100 ml @ 100 mls/hr Q8HRS IV Last administered on 08/09/19at 06:04; Start 08/02/19 at 10:00; Stop 08/09/19 at 08:10; Status DC Sodium Chloride 1,000 ml @ 1,000 mls/hr Q1H PRN IV hypotension; Start 08/02/19 at 08:00; Stop 08/02/19 at 13:59; Status DC Albumin Human 200 ml @ 200 mls/hr 1X PRN PRN IV Hypotension; Start 08/02/19 at 08:00; Stop 08/02/19 at 13:59; Status DC Sodium Chloride 1,000 ml @ 400 mls/hr Q2H30M PRN IV PATENCY; Start 08/02/19 at 08:00; Stop 08/02/19 at 19:59; Status DC Info (PHARMACY MONITORING -- do not chart) 1 each PRN DAILY PRN MC SEE COMMENTS; Start 08/02/19 at 11:30; Status UNV Info (PHARMACY MONITORING -- do not chart) 1 each PRN DAILY PRN MC SEE COMMENTS; Start 08/02/19 at 11:30; Stop 08/04/19 at 12:13; Status DC Sodium Chloride 100 meq/Potassium Phosphate 19 mmol/ Magnesium Sulfate 12 meq/Calcium Gluconate 15 meq/ Multivitamins 10 ml/Chromium/ Copper/Manganese/ Seleni/Zn 0.5 ml/ Insulin Human Regular 40 unit/ Potassium Chloride 20 meq/ Total Parenteral Nutrition/Amino Acids/Dextrose/ Fat Emulsion Intravenous 1,400 ml @ 58.333 mls/ hr TPN CONT IV Last administered on 08/02/19at 21:52; Start 08/02/19 at 22:00; Stop 08/03/19 at 21:59; Status DC Sodium Chloride (Normal Saline Flush) 10 ml QSHIFT PRN IV AFTER MEDS AND BLOOD DRAWS; Start 08/02/19 at 15:00; Stop 08/30/19 at 11:27; Status DC Sodium Chloride (Normal Saline Flush) 10 ml PRN Q5MIN PRN IV AFTER MEDS AND BLOOD DRAWS; Start 08/02/19 at 15:00 Sodium Chloride (Normal Saline Flush) 20 ml PRN Q5MIN PRN IV AFTER MEDS AND BLOOD DRAWS; Start 08/02/19 at 15:00 Sodium Chloride 100 meq/Potassium Phosphate 19 mmol/ Magnesium Sulfate 12 meq/Calcium Gluconate 15 meq/ Multivitamins 10 ml/Chromium/ Copper/Manganese/ Seleni/Zn 0.5 ml/ Insulin Human Regular 40 unit/ Potassium Chloride 20 meq/ Total Parenteral Nutrition/Amino Acids/Dextrose/ Fat Emulsion Intravenous 1,400 ml @ 58.333 mls/ hr TPN CONT IV Last administered on 08/03/19at 21:20; Start 08/03/19 at 22:00; Stop 08/04/19 at 21:59; Status DC Lidocaine HCl (Buffered Lidocaine 1%) 3 ml STK-MED ONCE .ROUTE ; Start 08/03/19 at 13:16; Stop 08/03/19 at 13:16; Status DC Lidocaine HCl (Buffered Lidocaine 1%) 6 ml 1X ONCE INJ Last administered on 08/03/19at 13:45; Start 08/03/19 at 13:30; Stop 08/03/19 at 13:31; Status DC Albumin Human 100 ml @ 100 mls/hr 1X ONCE IV Last administered on 08/03/19at 15:41; Start 08/03/19 at 15:00; Stop 08/03/19 at 15:59; Status DC Albumin Human 50 ml @ 50 mls/hr 1X ONCE IV Last administered on 08/03/19at 15:00; Start 08/03/19 at 15:00; Stop 08/03/19 at 15:59; Status DC Info (PHARMACY MONITORING -- do not chart) 1 each PRN DAILY PRN MC SEE COMMENTS; Start 08/04/19 at 11:30; Status Cancel Info (PHARMACY MONITORING -- do not chart) 1 each PRN DAILY PRN MC SEE COMMENTS; Start 08/04/19 at 11:30; Status UNV Sodium Chloride 100 meq/Potassium Phosphate 10 mmol/ Magnesium Sulfate 12 meq/Calcium Gluconate 15 meq/ Multivitamins 10 ml/Chromium/ Copper/Manganese/ Seleni/Zn 0.5 ml/ Insulin Human Regular 35 unit/ Potassium Chloride 20 meq/ Total Parenteral Nutrition/Amino Acids/Dextrose/ Fat Emulsion Intravenous 1,400 ml @ 58.333 mls/ hr TPN CONT IV Last administered on 08/04/19at 22:10; Start 08/04/19 at 22:00; Stop 08/05/19 at 21:59; Status DC Sodium Chloride 100 meq/Potassium Phosphate 5 mmol/ Magnesium Sulfate 12 meq/Calcium Gluconate 15 meq/ Multivitamins 10 ml/Chromium/ Copper/Manganese/ Seleni/Zn 0.5 ml/ Insulin Human Regular 35 unit/ Potassium Chloride 20 meq/ T otal Parenteral Nutrition/Amino Acids/Dextrose/ Fat Emulsion Intravenous 1,400 ml @ 58.333 mls/ hr TPN CONT IV Last administered on 08/05/19at 22:59; Start 08/05/19 at 22:00; Stop 08/06/19 at 21:59; Status DC Sodium Chloride 1,000 ml @ 1,000 mls/hr Q1H PRN IV hypotension; Start 08/06/19 at 08:27; Stop 08/06/19 at 14:26; Status DC Albumin Human 200 ml @ 200 mls/hr 1X PRN PRN IV Hypotension Last administered on 08/06/19at 09:18; Start 08/06/19 at 08:30; Stop 08/06/19 at 14:29; Status DC Sodium Chloride 1,000 ml @ 400 mls/hr Q2H30M PRN IV PATENCY; Start 08/06/19 at 08:27; Stop 08/06/19 at 20:26; Status DC Info (PHARMACY MONITORING -- do not chart) 1 each PRN DAILY PRN MC SEE COMMENTS; Start 08/06/19 at 08:30; Status Cancel Info (PHARMACY MONITORING -- do not chart) 1 each PRN DAILY PRN MC SEE COMMENTS; Start 08/06/19 at 08:30; Stop 08/14/19 at 13:10; Status DC Sodium Chloride 100 meq/Potassium Chloride 40 meq/ Magnesium Sulfate 15 meq/Calcium Gluconate 15 meq/ Multivitamins 10 ml/Chromium/ Copper/Manganese/ Seleni/Zn 0.5 ml/ Insulin Human Regular 35 unit/ Total Parenteral Nutrition/Amino Acids/Dextrose/ Fat Emulsion Intravenous 1,400 ml @ 58.333 mls/ hr TPN CONT IV Last administered on 08/06/19at 22:00; Start 08/06/19 at 22:00; Stop 08/07/19 at 21:59; Status DC Potassium Chloride/Water 100 ml @ 100 mls/hr 1X ONCE IV Last administered on 08/06/19at 17:28; Start 08/06/19 at 14:45; Stop 08/06/19 at 15:44; Status DC Sodium Chloride 100 meq/Potassium Chloride 40 meq/ Magnesium Sulfate 15 meq/Calcium Gluconate 15 meq/ Multivitamins 10 ml/Chromium/ Copper/Manganese/ Seleni/Zn 0.5 ml/ Insulin Human Regular 35 unit/ Total Parenteral Nutrition/Amino Acids/Dextrose/ Fat Emulsion Intravenous 1,400 ml @ 58.333 mls/ hr TPN CONT IV Last administered on 08/07/19at 22:46; Start 08/07/19 at 22:00; Stop 08/08/19 at 21:59; Status DC Sodium Chloride 100 meq/Potassium Chloride 40 meq/ Magnesium Sulfate 20 meq/Calcium Gluconate 15 meq/ Multivitamins 10 ml/Chromium/ Copper/Manganese/ Seleni/Zn 0.5 ml/ Insulin Human Regular 35 unit/ Total Parenteral Nutrition/Amino Acids/Dextrose/ Fat Emulsion Intravenous 1,400 ml @ 58.333 mls/ hr TPN CONT IV Last administered on 08/08/19at 22:31; Start 08/08/19 at 22:00; Stop 08/09/19 at 21:59; Status DC Fentanyl Citrate (Fentanyl 2ml Vial) 50 mcg PRN Q2HR PRN IVP PAIN Last administered on 08/15/19at 13:32; Start 08/08/19 at 21:00; Stop 08/16/19 at 12:53; Status DC Fentanyl Citrate (Fentanyl 2ml Vial) 25 mcg PRN Q2HR PRN IVP PAIN; Start 08/08/19 at 21:00; Stop 08/16/19 at 12:54; Status DC Enoxaparin Sodium (Lovenox 100mg Syringe) 100 mg Q12HR SQ ; Start 08/09/19 at 21:00; Status UNV Amino Acids/ Glycerin/ Electrolytes 1,000 ml @ 75 mls/hr [id number] IV ; Start 08/08/19 at 21:15; Status UNV Sodium Chloride 1,000 ml @ 1,000 mls/hr Q1H PRN IV hypotension; Start 08/09/19 at 07:56; Stop 08/09/19 at 13:55; Status DC Albumin Human 200 ml @ 200 mls/hr 1X PRN PRN IV Hypotension Last administered on 08/09/19at 08:40; Start 08/09/19 at 08:00; Stop 08/09/19 at 13:59; Status DC Sodium Chloride 1,000 ml @ 400 mls/hr Q2H30M PRN IV PATENCY; Start 08/09/19 at 07:56; Stop 08/09/19 at 19:55; Status DC Info (PHARMACY MONITORING -- do not chart) 1 each PRN DAILY PRN MC SEE COMMENTS; Start 08/09/19 at 08:00; Status UNV Info (PHARMACY MONITORING -- do not chart) 1 each PRN DAILY PRN MC SEE COMMENTS; Start 08/09/19 at 08:00; Status UNV Daptomycin 430 mg/ Sodium Chloride 50 ml @ 100 mls/hr Q24H IV Last administered on 08/09/19at 12:35; Start 08/09/19 at 09:00; Stop 08/09/19 at 12:49; Status DC Sodium Chloride 100 meq/Potassium Chloride 40 meq/ Magnesium Sulfate 20 meq/Calcium Gluconate 15 meq/ Multivitamins 10 ml/Chromium/ Copper/Manganese/ Seleni/Zn 0.5 ml/ Insulin Human Regular 35 unit/ Total Parenteral Nutrition/Amino Acids/Dextrose/ Fat Emulsion Intravenous 1,400 ml @ 58.333 mls/ hr TPN CONT IV Last administered on 08/09/19at 21:26; Start 08/09/19 at 22:00; Stop 08/10/19 at 21:59; Status DC Daptomycin 430 mg/ Sodium Chloride 50 ml @ 100 mls/hr Q48H IV ; Start 08/11/19 at 09:00; Stop 08/10/19 at 11:55; Status DC Sodium Chloride 100 meq/Potassium Chloride 40 meq/ Magnesium Sulfate 20 meq/Calcium Gluconate 15 meq/ Multivitamins 10 ml/Chromium/ Copper/Manganese/ Seleni/Zn 0.5 ml/ Insulin Human Regular 35 unit/ Total Parenteral Nutrition/Amino Acids/Dextrose/ Fat Emulsion Intravenous 1,400 ml @ 58.333 mls/ hr TPN CONT IV Last administered on 08/10/19at 22:27; Start 08/10/19 at 22:00; Stop 08/11/19 at 21:59; Status DC Daptomycin 430 mg/ Sodium Chloride 50 ml @ 100 mls/hr Q24H IV Last administe red on 08/12/19at 15:07; Start 08/10/19 at 13:00; Stop 08/13/19 at 13:15; Status DC Sodium Chloride 100 meq/Potassium Chloride 40 meq/ Magnesium Sulfate 20 meq/Calcium Gluconate 10 meq/ Multivitamins 10 ml/Chromium/ Copper/Manganese/ Seleni/Zn 0.5 ml/ Insulin Human Regular 35 unit/ Total Parenteral Nutrition/Amino Acids/Dextrose/ Fat Emulsion Intravenous 1,400 ml @ 58.333 mls/ hr TPN CONT IV Last administered on 08/12/19at 00:06; Start 08/11/19 at 22:00; Stop 08/12/19 at 21:59; Status DC Alteplase, Recombinant (Cathflo For Central Catheter Clearance) 1 mg 1X ONCE INT CAT Last administered on 08/12/19at 11:44; Start 08/12/19 at 10:45; Stop 08/12/19 at 10:46; Status DC Ondansetron HCl (Zofran) 4 mg PRN Q6HRS PRN IV NAUSEA/VOMITING; Start 08/15/19 at 07:00; Stop 08/16/19 at 06:59; Status DC Fentanyl Citrate (Fentanyl 2ml Vial) 25 mcg PRN Q5MIN PRN IV MILD PAIN 1-3; Start 08/15/19 at 07:00; Stop 08/16/19 at 06:59; Status DC Fentanyl Citrate (Fentanyl 2ml Vial) 50 mcg PRN Q5MIN PRN IV MODERATE TO SEVERE PAIN Last administered on 08/15/19at 10:17; Start 08/15/19 at 07:00; Stop 08/16/19 at 06:59; Status DC Ringer's Solution 1,000 ml @ 30 mls/hr Q24H IV ; Start 08/15/19 at 07:00; Stop 08/15/19 at 18:59; Status DC Lidocaine HCl (Xylocaine-Mpf 1% 2ml Vial) 2 ml PRN 1X PRN ID PRIOR TO IV START; Start 08/15/19 at 07:00; Stop 08/16/19 at 06:59; Status DC Prochlorperazine Edisylate (Compazine) 5 mg PACU PRN PRN IV NAUSEA, MRX1; Start 08/15/19 at 07:00; Stop 08/16/19 at 06:59; Status DC Sodium Acetate 50 meq/Potassium Acetate 55 meq/ Magnesium Sulfate 20 meq/Calcium Gluconate 10 meq/ Multivitamins 10 ml/Chromium/ Copper/Manganese/ Seleni/Zn 0.5 ml/ Insulin Human Regular 35 unit/ Total Parenteral Nutrition/Amino Acids/Dextrose/ Fat Emulsion Intravenous 1,400 ml @ 58.333 mls/ hr TPN CONT IV ; Start 08/12/19 at 22:00; Stop 08/12/19 at 14:15; Status DC Sodium Acetate 50 meq/Potassium Acetate 55 meq/ Magnesium Sulfate 20 meq/Calcium Gluconate 10 meq/ Multivitamins 10 ml/Chromium/ Copper/Manganese/ Seleni/Zn 0.5 ml/ Insulin Human Regular 35 unit/ Total Parenteral Nutrition/Amino Acids/Dextrose/ Fat Emulsion Intravenous 1,800 ml @ 75 mls/hr TPN CONT IV Last administered on 08/12/19at 22:38; Start 08/12/19 at 22:00; Stop 08/13/19 at 21:59; Status DC Sodium Chloride 1,000 ml @ 1,000 mls/hr Q1H PRN IV hypotension; Start 08/12/19 at 15:31; Stop 08/12/19 at 21:30; Status DC Diphenhydramine HCl (Benadryl) 25 mg 1X PRN PRN IV ITCHING; Start 08/12/19 at 15:45; Stop 08/13/19 at 15:44; Status DC Diphenhydramine HCl (Benadryl) 25 mg 1X PRN PRN IV ITCHING; Start 08/12/19 at 15:45; Stop 08/13/19 at 15:44; Status DC Sodium Chloride 1,000 ml @ 400 mls/hr Q2H30M PRN IV PATENCY; Start 08/12/19 at 15:31; Stop 08/13/19 at 03:30; Status DC Info (PHARMACY MONITORING -- do not chart) 1 each PRN DAILY PRN MC SEE COMMENTS; Start 08/12/19 at 15:45; Stop 09/13/19 at 14:14; Status DC Sodium Acetate 50 meq/Potassium Acetate 55 meq/ Magnesium Sulfate 20 meq/Calcium Gluconate 10 meq/ Multivitamins 10 ml/Chromium/ Copper/Manganese/ Seleni/Zn 0.5 ml/ Insulin Human Regular 35 unit/ Total Parenteral Nutrition/Amino Acids/Dextrose/ Fat Emulsion Intravenous 1,800 ml @ 75 mls/hr TPN CONT IV Last administered on 08/13/19at 22:03; Start 08/13/19 at 22:00; Stop 08/14/19 at 21:59; Status DC Daptomycin 430 mg/ Sodium Chloride 50 ml @ 100 mls/hr Q24H IV Last administered on 08/18/19at 13:00; Start 08/13/19 at 13:00; Stop 08/18/19 at 20:58; Status DC Heparin Sodium (Porcine) 1000 unit/Sodium Chloride 1,001 ml @ 1,001 mls/hr 1X ONCE IRR ; Start 08/15/19 at 06:00; Stop 08/15/19 at 06:59; Status DC Potassium Acetate 55 meq/Magnesium Sulfate 20 meq/ Calcium Gluconate 10 meq/ Multivitamins 10 ml/Chromium/ Copper/Manganese/ Seleni/Zn 0.5 ml/ Insulin Human Regular 35 unit/ Total Parenteral Nutrition/Amino Acids/Dextrose/ Fat Emulsion Intravenous 1,920 ml @ 80 mls/hr TPN CONT IV Last administered on 08/14/19at 22:10; Start 08/14/19 at 22:00; Stop 08/15/19 at 21:59; Status DC Dexamethasone Sodium Phosphate (Decadron) 4 mg STK-MED ONCE .ROUTE ; Start at 10:56; Stop 08/15/19 at 10:57; Status DC Ondansetron HCl (Zofran) 4 mg STK-MED ONCE .ROUTE ; Start 08/15/19 at 10:56; Stop 08/15/19 at 10:57; Status DC Rocuronium [place] (Zemuron) 50 mg STK-MED ONCE .ROUTE ; Start 08/15/19 at 10:56; Stop 08/15/19 at 10:57; Status DC Fentanyl Citrate (Fentanyl 2ml Vial) 100 mcg STK-MED ONCE .ROUTE ; Start 08/15/19 at 10:56; Stop 08/15/19 at 10:57; Status DC Bupivacaine HCl/ Epinephrine Bitart (Sensorcain-Epi 0.5%-1:467398 Mpf) 30 ml STK-MED ONCE .ROUTE Last administered on 08/15/19at 12:01; Start 08/15/19 at 10:58; Stop 08/15/19 at 10:58; Status DC Cellulose (Surgicel Hemostat 2x14) 1 each STK-MED ONCE .ROUTE ; Start 08/15/19 at 10:58; Stop 08/15/19 at 10:59; Status DC Iohexol (Omnipaque 300 Mg/ml) 50 ml STK-MED ONCE .ROUTE ; Start 08/15/19 at 10:58; Stop 08/15/19 at 10:59; Status DC Cellulose (Surgicel Hemostat 4x8) 1 each STK-MED ONCE .ROUTE ; Start 08/15/19 at 10:58; Stop 08/15/19 at 10:59; Status DC Bisacodyl (Dulcolax Supp) 10 mg STK-MED ONCE .ROUTE ; Start 08/15/19 at 10:59; Stop 08/15/19 at 10:59; Status DC Heparin Sodium (Porcine) 1000 unit/Sodium Chloride 1,001 ml @ 1,001 mls/hr 1X ONCE IRR ; Start 08/15/19 at 12:00; Stop 08/15/19 at 12:59; Status DC Propofol 20 ml @ As Directed STK-MED ONCE IV ; Start 08/15/19 at 11:05; Stop 08/15/19 at 11:05; Status DC Sevoflurane (Ultane) 90 ml STK-MED ONCE IH ; Start 08/15/19 at 11:05; Stop 08/15/19 at 11:05; Status DC Sevoflurane (Ultane) 60 ml STK-MED ONCE IH ; Start 08/15/19 at 12:26; Stop 08/15/19 at 12:27; Status DC Propofol 20 ml @ As Directed STK-MED ONCE IV ; Start 08/15/19 at 12:26; Stop 08/15/19 at 12:27; Status DC Phenylephrine HCl (PHENYLEPHRINE in 0.9% NACL PF) 1 mg STK-MED ONCE IV ; Start 08/15/19 at 12:34; Stop 08/15/19 at 12:34; Status DC Heparin Sodium (Porcine) (Heparin Sodium) 5,000 unit Q12HR SQ Last administered on 08/24/19at 20:57; Start 08/15/19 at 21:00; Stop 08/25/19 at 09:59; Status DC Sodium Chloride (Normal Saline Flush) 3 ml QSHIFT PRN IV AFTER MEDS AND BLOOD DRAWS; Start 08/15/19 at 13:45 Naloxone HCl (Narcan) 0.4 mg PRN Q2MIN PRN IV SEE INSTRUCTIONS Last administered on 09/24/19at 15:15; Start 08/15/19 at 13:45 Sodium Chloride 1,000 ml @ 25 mls/hr Q24H IV Last administered on 09/13/19at 13:37; Start 08/15/19 at 13:37; Stop 09/16/19 at 13:09; Status DC Naloxone HCl (Narcan) 0.4 mg PRN Q2MIN PRN IV SEE INSTRUCTIONS; Start 08/15/19 at 14:30; Status UNV Sodium Chloride 1,000 ml @ 25 mls/hr Q24H IV ; Start 08/15/19 at 14:30; Status UNV Hydromorphone HCl 30 ml @ 0 mls/hr CONT PRN PRN IV PER PROTOCOL Last administered on 08/20/19at 16:08; Start 08/15/19 at 14:30; Stop 08/22/19 at 08:55; Status DC Potassium Acetate 55 meq/Magnesium Sulfate 20 meq/ Calcium Gluconate 10 meq/ Multivitamins 10 ml/Chromium/ Copper/Manganese/ Seleni/Zn 0.5 ml/ Insulin Human Regular 35 unit/ Total Parenteral Nutrition/Amino Acids/Dextrose/ Fat Emulsion Intravenous 1,920 ml @ 80 mls/hr TPN CONT IV Last administered on 08/15/19at 22:01; Start 08/15/19 at 22:00; Stop 08/16/19 at 21:59; Status DC Bumetanide (Bumex) 2 mg [id number] IV Last administered on 08/19/19at 13:50; Start 08/16/19 at 14:00; Stop 08/20/19 at 14:10; Status DC Meropenem 1 gm/ Sodium Chloride 100 ml @ 200 mls/hr Q8HRS IV Last administered on 09/09/19at 05:53; Start 08/16/19 at 14:00; Stop 09/09/19 at 09:31; Status DC Potassium Acetate 55 meq/Magnesium Sulfate 20 meq/ Calcium Gluconate 10 meq/ Multivitamins 10 ml/Chromium/ Copper/Manganese/ Seleni/Zn 0.5 ml/ Insulin Human Regular 35 unit/ Total Parenteral Nutrition/Amino Acids/Dextrose/ Fat Emulsion Intravenous 1,920 ml @ 80 mls/hr TPN CONT IV Last administered on 08/16/19at 22:02; Start 08/16/19 at 22:00; Stop 08/17/19 at 21:59; Status DC Hydromorphone HCl (Dilaudid Standard SPECIAL DIET COOK) 12 mg STK-MED ONCE IV ; Start 08/15/19 at 14:35; Stop 08/16/19 at 13:53; Status DC Artificial Tears (Artificial Tears) 1 drop PRN Q15MIN PRN OU DRY EYE Last administered on 10/11/19at 21:17; Start 08/17/19 at 05:30 Hydromorphone HCl (Dilaudid Standard SPECIAL DIET COOK) 12 mg STK-MED ONCE IV ; Start 08/16/19 at 12:05; Stop 08/17/19 at 09:15; Status DC Potassium Acetate 65 meq/Magnesium Sulfate 20 meq/ Calcium Gluconate 10 meq/ Multivitamins 10 ml/Chromium/ Copper/Manganese/ Seleni/Zn 0.5 ml/ Insulin Human Regular 30 unit/ Total Parenteral Nutrition/Amino Acids/Dextrose/ Fat Emulsion Intravenous 1,920 ml @ 80 mls/hr TPN CONT IV Last administered on 08/17/19at 22:22; Start 08/17/19 at 22:00; Stop 08/18/19 at 21:59; Status DC Cyclobenzaprine HCl (Flexeril) 10 mg PRN Q6HRS PRN PO MUSCLE SPASMS; Start 08/18/19 at 10:45 Potassium Acetate 55 meq/Magnesium Sulfate 20 meq/ Calcium Gluconate 10 meq/ Multivitamins 10 ml/Chromium/ Copper/Manganese/ Seleni/Zn 0.5 ml/ Insulin Human Regular 30 unit/ Total Parenteral Nutrition/Amino Acids/Dextrose/ Fat Emulsion Intravenous 1,920 ml @ 80 mls/hr TPN CONT IV Last administered on 08/19/19at 01:00; Start 08/18/19 at 22:00; Stop 08/19/19 at 21:59; Status DC Magnesium Sulfate 50 ml @ 25 mls/hr 1X ONCE IV Last administered on 08/18/19at 17:18; Start 08/18/19 at 12:45; Stop 08/18/19 at 14:44; Status DC Potassium Chloride/Water 100 ml @ 100 mls/hr 1X ONCE IV Last administered on 08/19/19at 11:27; Start 08/19/19 at 12:00; Stop 08/19/19 at 12:59; Status DC Hydromorphone HCl (Dilaudid Standard SPECIAL DIET COOK) 12 mg STK-MED ONCE IV ; Start 08/17/19 at 10:50; Stop 08/19/19 at 11:02; Status DC Hydromorphone HCl (Dilaudid Standard SPECIAL DIET COOK) 12 mg STK-MED ONCE IV ; Start 08/18/19 at 13:47; Stop 08/19/19 at 11:03; Status DC Potassium Acetate 30 meq/Magnesium Sulfate 20 meq/ Calcium Gluconate 10 meq/ Multivitamins 10 ml/Chromium/ Copper/Manganese/ Seleni/Zn 0.5 ml/ Insulin Human Regular 30 unit/ Potassium Chloride 30 meq/ Total Parenteral Nutrition/Amino Ac ids/Dextrose/ Fat Emulsion Intravenous 1,920 ml @ 80 mls/hr TPN CONT IV Last administered on 08/19/19at 22:34; Start 08/19/19 at 22:00; Stop 08/20/19 at 21:59; Status DC Potassium Chloride/Water 100 ml @ 100 mls/hr Q1H IV Last administered on 08/20/19at 13:05; Start 08/20/19 at 07:00; Stop 08/20/19 at 10:59; Status DC Magnesium Sulfate 50 ml @ 25 mls/hr 1X ONCE IV Last administered on 08/20/19at 10:34; Start 08/20/19 at 10:30; Stop 08/20/19 at 12:29; Status DC Potassium Chloride 75 meq/ Magnesium Sulfate 20 meq/Calcium Gluconate 10 meq/ Multivitamins 10 ml/Chromium/ Copper/Manganese/ Seleni/Zn 0.5 ml/ Insulin Human Regular 30 unit/ Total Parenteral Nutrition/Amino Acids/Dextrose/ Fat Emulsion Intravenous 1,920 ml @ 80 mls/hr TPN CONT IV Last administered on 08/20/19at 21:51; Start 08/20/19 at 22:00; Stop 08/21/19 at 22:00; Status DC Potassium Chloride 75 meq/ Magnesium Sulfate 20 meq/Calcium Gluconate 10 meq/ Multivitamins 10 ml/Chromium/ Copper/Manganese/ Seleni/Zn 0.5 ml/ Insulin Human Regular 25 unit/ Total Parenteral Nutrition/Amino Acids/Dextrose/ Fat Emulsion Intravenous 1,920 ml @ 80 mls/hr TPN CONT IV Last administered on 08/21/19at 22:04; Start 08/21/19 at 22:00; Stop 08/22/19 at 21:59; Status DC Hydromorphone HCl (Dilaudid) 0.4 mg PRN Q4HRS PRN IVP PAIN Last administered on 08/22/19at 10:57; Start 08/22/19 at 09:00; Stop 08/22/19 at 18:59; Status DC Micafungin Sodium 100 mg/Dextrose 100 ml @ 100 mls/hr Q24H IV Last administered on 09/13/19at 12:17; Start 08/22/19 at 11:00; Stop 09/14/19 at 09:59; Status DC Daptomycin 485 mg/ Sodium Chloride 50 ml @ 100 mls/hr Q24H IV Last administered on 08/29/19at 13:10; Start 08/22/19 at 11:00; Stop 08/30/19 at 07:44; Status DC Potassium Chloride 75 meq/ Magnesium Sulfate 15 meq/Calcium Gluconate 8 meq/ Multivitamins 10 ml/Chromium/ Copper/Manganese/ Seleni/Zn 0.5 ml/ Insulin Human Regular 25 unit/ Total Parenteral Nutrition/Amino Acids/Dextrose/ Fat Emulsion Intravenous 1,920 ml @ 80 mls/hr TPN CONT IV Last administered on 08/22/19at 23:08; Start 08/22/19 at 22:00; Stop 08/23/19 at 21:59; Status DC Haloperidol Lactate (Haldol Inj) 3 mg 1X ONCE IVP Last administered on 08/22/19at 14:37; Start 08/22/19 at 14:30; Stop 08/22/19 at 14:31; Status DC Hydromorphone HCl (Dilaudid) 1 mg PRN Q4HRS PRN IVP PAIN Last administered on 09/05/19at 06:25; Start 08/22/19 at 19:00; Stop 09/05/19 at 17:10; Status DC Potassium Chloride 75 meq/ Magnesium Sulfate 15 meq/Calcium Gluconate 8 meq/ Multivitamins 10 ml/Chromium/ Copper/Manganese/ Seleni/Zn 0.5 ml/ Insulin Human Regular 20 unit/ Total Parenteral Nutrition/Amino Acids/Dextrose/ Fat Emulsion Intravenous 1,920 ml @ 80 mls/hr TPN CONT IV Last administered on 08/23/19at 22:10; Start 08/23/19 at 22:00; Stop 08/24/19 at 21:59; Status DC Lidocaine HCl (Buffered Lidocaine 1%) 3 ml STK-MED ONCE .ROUTE ; Start 08/24/19 at 11:31; Stop 08/24/19 at 11:31; Status DC Lidocaine HCl (Buffered Lidocaine 1%) 3 ml STK-MED ONCE .ROUTE ; Start 08/24/19 at 12:28; Stop 08/24/19 at 12:29; Status DC Lidocaine HCl (Buffered Lidocaine 1%) 6 ml 1X ONCE INJ Last administered on 08/24/19at 12:53; Start 08/24/19 at 12:45; Stop 08/24/19 at 12:46; Status DC Potassium Chloride 75 meq/ Magnesium Sulfate 15 meq/Calcium Gluconate 8 meq/ Multivitamins 10 ml/Chromium/ Copper/Manganese/ Seleni/Zn 0.5 ml/ Insulin Human Regular 20 unit/ Total Parenteral Nutrition/Amino Acids/Dextrose/ Fat Emulsion Intravenous 1,920 ml @ 80 mls/hr TPN CONT IV Last administered on 08/24/19at 22:00; Start 08/24/19 at 22:00; Stop 08/25/19 at 21:59; Status DC Potassium Chloride 75 meq/ Magnesium Sulfate 15 meq/Calcium Gluconate 8 meq/ Multivitamins 10 ml/Chromium/ Copper/Manganese/ Seleni/Zn 0.5 ml/ Insulin Human Regular 15 unit/ Total Parenteral Nutrition/Amino Acids/Dextrose/ Fat Emulsion Intravenous 1,920 ml @ 80 mls/hr TPN CONT IV Last administered on 08/25/19at 22:28; Start 08/25/19 at 22:00; Stop 08/26/19 at 21:59; Status DC Vecuronium [place] (Norcuron Bolus) 6 mg PRN Q6HRS PRN IV VENT ASYNCHRONY; Start 08/25/19 at 19:15; Stop 08/25/19 at 19:35; Status DC Bumetanide (Bumex) 2 mg 1X ONCE IV Last administered on 08/25/19at 22:09; Start 08/25/19 at 19:45; Stop 08/25/19 at 19:46; Status DC Lidocaine HCl (Buffered Lidocaine 1%) 3 ml STK-MED ONCE .ROUTE ; Start 08/26/19 at 07:59; Stop 08/26/19 at 07:59; Status DC Midazolam HCl (Versed) 5 mg STK-MED ONCE .ROUTE ; Start 08/26/19 at 08:36; Stop 08/26/19 at 08:36; Status DC Fentanyl Citrate (Fentanyl 5ml Vial) 250 mcg STK-MED ONCE .ROUTE ; Start 08/26/19 at 08:36; Stop 08/26/19 at 08:37; Status DC Lidocaine HCl (Buffered Lidocaine 1%) 3 ml 1X ONCE IJ Last administered on 08/26/19at 09:30; Start 08/26/19 at 09:15; Stop 08/26/19 at 09:16; Status DC Midazolam HCl (Versed) 5 mg 1X ONCE IV Last administered on 08/26/19at 09:30; Start 08/26/19 at 09:15; Stop 08/26/19 at 09:16; Status DC Fentanyl Citrate (Fentanyl 5ml Vial) 250 mcg 1X ONCE IV Last administered on 08/26/19at 09:30; Start 08/26/19 at 09:15; Stop 08/26/19 at 09:16; Status DC Bumetanide (Bumex) 2 mg DAILY IV Last administered on 09/05/19at 08:07; Start 08/26/19 at 10:00; Stop 09/05/19 at 17:15; Status DC Potassium Chloride 75 meq/ Magnesium Sulfate 15 meq/ Multivitamins 10 ml/Chromium/ Copper/Manganese/ Seleni/Zn 0.5 ml/ Insulin Human Regular 15 unit/ Total Parenteral Nutrition/Amino Acids/Dextrose/ Fat Emulsion Intravenous 1,920 ml @ 80 mls/hr TPN CONT IV Last administered on 08/26/19at 21:59; Start 08/26/19 at 22:00; Stop 08/27/19 at 21:59; Status DC Metoclopramide HCl (Reglan Vial) 10 mg PRN Q3HRS PRN IVP NAUSEA/VOMITING-3rd choice Last administered on 09/01/19at 04:25; Start 08/27/19 at 16:45 Potassium Chloride 75 meq/ Magnesium Sulfate 15 meq/ Multivitamins 10 ml/Chromium/ Copper/Manganese/ Seleni/Zn 0.5 ml/ Insulin Human Regular 15 unit/ Total Parenteral Nutrition/Amino Acids/Dextrose/ Fat Emulsion Intravenous 1,920 ml @ 80 mls/hr TPN CONT IV Last administered on 08/27/19at 22:41; Start 08/27/19 at 22:00; Stop 08/28/19 at 21:59; Status DC Magnesium Sulfate 50 ml @ 25 mls/hr 1X ONCE IV Last administered on 08/28/19at 10:44; Start 08/28/19 at 09:00; Stop 08/28/19 at 10:59; Status DC Potassium Chloride/Water 100 ml @ 100 mls/hr 1X ONCE IV Last administered on 08/28/19at 09:37; Start 08/28/19 at 09:00; Stop 08/28/19 at 09:59; Status DC Duloxetine HCl (Cymbalta) 30 mg DAILY PO Last administered on 08/29/19at 09:48; Start 08/28/19 at 14:00; Stop 08/31/19 at 10:25; Status DC Potassium Chloride 80 meq/ Magnesium Sulfate 20 meq/ Multivitamins 10 ml/Chromium/ Copper/Manganese/ Seleni/Zn 0.5 ml/ Insulin Human Regular 15 unit/ Total Parenteral Nutrition/Amino Acids/Dextrose/ Fat Emulsion Intravenous 1,920 ml @ 80 mls/hr TPN CONT IV Last administered on 08/28/19at 21:42; Start 08/28/19 at 22:00; Stop 08/29/19 at 21:59; Status DC Potassium Chloride 80 meq/ Magnesium Sulfate 20 meq/ Multivitamins 10 ml/Chromium/ Copper/Manganese/ Seleni/Zn 0.5 ml/ Insulin Human Regular 15 unit/ Total Parenteral Nutrition/Amino Acids/Dextrose/ Fat Emulsion Intravenous 1,920 ml @ 80 mls/hr TPN CONT IV Last administered on 08/29/19at 22:20; Start 08/29/19 at 22:00; Stop 08/30/19 at 21:59; Status DC Lidocaine HCl (Buffered Lidocaine 1%) 3 ml STK-MED ONCE .ROUTE ; Start 08/30/19 at 09:54; Stop 08/30/19 at 09:55; Status DC Hydromorphone HCl (Dilaudid Standard SPECIAL DIET COOK) 12 mg STK-MED ONCE IV ; Start 08/19/19 at 15:50; Stop 08/30/19 at 11:24; Status DC Potassium Chloride 80 meq/ Magnesium Sulfate 20 meq/ Multivitamins 10 ml/Chromium/ Copper/Manganese/ Seleni/Zn 0.5 ml/ Insulin Human Regular 15 unit/ Total Parenteral Nutrition/Amino Acids/Dextrose/ Fat Emulsion Intravenous 1,920 ml @ 80 mls/hr TPN CONT IV Last administered on 08/30/19at 21:40; Start 08/30/19 at 22:00; Stop 08/31/19 at 21:59; Status DC Lidocaine HCl (Buffered Lidocaine 1%) 6 ml 1X ONCE INJ Last administered on 08/30/19at 14:15; Start 08/30/19 at 14:15; Stop 08/30/19 at 14:16; Status DC Potassium Chloride 80 meq/ Magnesium Sulfate 20 meq/ Multivitamins 10 ml/Chromium/ Copper/Manganese/ Seleni/Zn 1 ml/ Insulin Human Regular 15 unit/ Total Parenteral Nutrition/Amino Acids/Dextrose/ Fat Emulsion Intravenous 1,920 ml @ 80 mls/hr TPN CONT IV Last administered on 08/31/19at 22:04; Start 08/31/19 at 22:00; Stop 09/01/19 at 21:59; Status DC Potassium Chloride/Water 100 ml @ 100 mls/hr 1X ONCE IV Last administered on 09/01/19at 11:34; Start 09/01/19 at 11:00; Stop 09/01/19 at 11:59; Status DC Potassium Chloride 90 meq/ Magnesium Sulfate 20 meq/ Multivitamins 10 ml/Chromium/ Copper/Manganese/ Seleni/Zn 1 ml/ Insulin Human Regular 15 unit/ Total Parenteral Nutrition/Amino Acids/Dextrose/ Fat Emulsion Intravenous 1,920 ml @ 80 mls/hr TPN CONT IV Last administered on 09/01/19at 22:57; Start 09/01/19 at 22:00; Stop 09/02/19 at 21:59; Status DC Potassium Chloride 90 meq/ Magnesium Sulfate 20 meq/ Multivitamins 10 ml/C hromium/ Copper/Manganese/ Seleni/Zn 1 ml/ Insulin Human Regular 15 unit/ Total Parenteral Nutrition/Amino Acids/Dextrose/ Fat Emulsion Intravenous 1,920 ml @ 80 mls/hr TPN CONT IV Last administered on 09/02/19at 22:48; Start 09/02/19 at 22:00; Stop 09/03/19 at 21:59; Status DC Potassium Chloride 90 meq/ Magnesium Sulfate 20 meq/ Multivitamins 10 ml/Chromium/ Copper/Manganese/ Seleni/Zn 1 ml/ Insulin Human Regular 15 unit/ Total Parenteral Nutrition/Amino Acids/Dextrose/ Fat Emulsion Intravenous 1,890 ml @ 78.75 mls/ hr TPN CONT IV Last administered on 09/03/19at 22:15; Start 09/03/19 at 22:00; Stop 09/04/19 at 21:59; Status DC Linezolid/Dextrose 300 ml @ 300 mls/hr Q12HR IV Last administered on 09/06/19at 21:08; Start 09/04/19 at 09:00; Stop 09/07/19 at 08:11; Status DC Daptomycin 450 mg/ Sodium Chloride 50 ml @ 100 mls/hr Q24H IV Last administered on 09/07/19at 09:25; Start 09/04/19 at 09:00; Stop 09/08/19 at 08:30; Status DC Potassium Chloride 90 meq/ Magnesium Sulfate 20 meq/ Multivitamins 10 ml /Chromium/ Copper/Manganese/ Seleni/Zn 1 ml/ Insulin Human Regular 15 unit/ Total Parenteral Nutrition/Amino Acids/Dextrose/ Fat Emulsion Intravenous 1,890 ml @ 78.75 mls/ hr TPN CONT IV Last administered on 09/04/19at 21:34; Start 09/04/19 at 22:00; Stop 09/05/19 at 21:59; Status DC Lorazepam (Ativan Inj) 2 mg STK-MED ONCE .ROUTE ; Start 09/04/19 at 14:58; Stop 09/04/19 at 14:58; Status DC Metoprolol Tartrate (Lopressor Vial) 5 mg 1X ONCE IVP Last administered on 09/04/19at 15:31; Start 09/04/19 at 15:15; Stop 09/04/19 at 15:16; Status DC Lorazepam (Ativan Inj) 2 mg 1X ONCE IVP Last administered on 09/04/19at 15:30; Start 09/04/19 at 15:15; Stop 09/04/19 at 15:16; Status DC Enoxaparin Sodium (Lovenox 40mg Syringe) 40 mg Q24H SQ Last administered on 09/23/19at 17:44; Start 09/04/19 at 17:00; Stop 09/25/19 at 06:50; Status DC Lorazepam (Ativan Inj) 1 mg PRN Q4HRS PRN IVP ANXIETY / AGITATION MILD-MOD Last administered on 09/18/19at 15:55; Start 09/04/19 at 19:15; Stop 09/20/19 at 11:45; Status DC Lorazepam (Ativan Inj) 2 mg PRN Q4HRS PRN IVP ANXIETY / AGITATION SEVERE Last administered on 09/19/19at 07:55; Start 09/04/19 at 19:15; Stop 09/20/19 at 11:45; Status DC Fentanyl Citrate (Fentanyl 2ml Vial) 50 mcg PRN Q4HRS PRN IVP SEVERE PAIN Last administered on 10/01/19at 05:15; Start 09/05/19 at 13:15; Stop 10/02/19 at 09:29; Status DC Fentanyl Citrate (Fentanyl 2ml Vial) 25 mcg PRN Q4HRS PRN IVP MODERATE PAIN Last administered on 10/01/19at 00:27; Start 09/05/19 at 13:15; Stop 10/02/19 at 09:30; Status DC Potassium Chloride 90 meq/ Magnesium Sulfate 20 meq/ Multivitamins 10 ml/Chromium/ Copper/Manganese/ Seleni/Zn 1 ml/ Insulin Human Regular 15 unit/ Total Parenteral Nutrition/Amino Acids/Dextrose/ Fat Emulsion Intravenous 1,890 ml @ 78.75 mls/ hr TPN CONT IV Last administered on 09/05/19at 22:18; Start 09/05/19 at 22:00; Stop 09/06/19 at 21:59; Status DC Furosemide (Lasix) 40 mg 1X ONCE IVP Last administered on 09/05/19at 21:51; Start 09/05/19 at 21:45; Stop 09/05/19 at 21:48; Status DC Albumin Human 100 ml @ 100 mls/hr 1X PRN PRN IV SEE COMMENTS; Start 09/06/19 at 01:30 Furosemide (Lasix) 40 mg [id number] IVP Last administered on 09/21/19at 08:04; Start 09/06/19 at 14:00; Stop 09/21/19 at 13:07; Status DC Potassium Chloride 90 meq/ Magnesium Sulfate 20 meq/ Multivitamins 10 ml/Chromium/ Copper/Manganese/ Seleni/Zn 1 ml/ Insulin Human Regular 15 unit/ Total Parenteral Nutrition/Amino Acids/Dextrose/ Fat Emulsion Intravenous 1,800 ml @ 75 mls/hr TPN CONT IV Last administered on 09/06/19at 22:31; Start at 22:00; Stop 09/07/19 at 21:59; Status DC Potassium Chloride 90 meq/ Magnesium Sulfate 20 meq/ Multivitamins 10 ml/Chromiu m/ Copper/Manganese/ Seleni/Zn 1 ml/ Insulin Human Regular 15 unit/ Total Parenteral Nutrition/Amino Acids/Dextrose/ Fat Emulsion Intravenous 1,800 ml @ 75 mls/hr TPN CONT IV Last administered on 09/07/19at 22:28; Start 09/07/19 at 22:00; Stop 09/08/19 at 21:59; Status DC Potassium Chloride 110 meq/ Magnesium Sulfate 20 meq/ Multivitamins 10 ml/Chromium/ Copper/Manganese/ Seleni/Zn 1 ml/ Insulin Human Regular 15 unit/ Total Parenteral Nutrition/Amino Acids/Dextrose/ Fat Emulsion Intravenous 1,800 ml @ 75 mls/hr TPN CONT IV Last administered on 09/08/19at 22:01; Start 09/08/19 at 22:00; Stop 09/09/19 at 21:59; Status DC Saliva Substitute (Biotene Moisturizing Mouth) 2 spray PRN Q15MIN PRN PO DRY MOUTH; Start 09/08/19 at 11:00 Potassium Chloride 110 meq/ Magnesium Sulfate 20 meq/ Multivitamins 10 ml/Chromium/ Copper/Manganese/ Seleni/Zn 1 ml/ Insulin Human Regular 15 unit/ Total Parenteral Nutrition/Amino Acids/Dextrose/ Fat Emulsion Intravenous 1,800 ml @ 75 mls/hr TPN CONT IV Last administered on 09/09/19at 22:21; Start 09/09/19 at 22:00; Stop 09/10/19 at 21:59; Status DC Potassium Chloride 110 meq/ Magnesium Sulfate 20 meq/ Multivitamins 10 ml/Chromium/ Copper/Manganese/ Seleni/Zn 1 ml/ Insulin Human Regular 15 unit/ Total Parenteral Nutrition/Amino Acids/Dextrose/ Fat Emulsion Intravenous 1,800 ml @ 75 mls/hr TPN CONT IV Last administered on 09/10/19at 22:04; Start at 22:00; Stop 09/11/19 at 21:59; Status DC Potassium Chloride 110 meq/ Magnesium Sulfate 20 meq/ Multivitamins 10 ml/Chromi um/ Copper/Manganese/ Seleni/Zn 1 ml/ Insulin Human Regular 15 unit/ Total Parenteral Nutrition/Amino Acids/Dextrose/ Fat Emulsion Intravenous 1,800 ml @ 75 mls/hr TPN CONT IV Last administered on 09/11/19at 22:48; Start 09/11/19 at 22:00; Stop 09/12/19 at 21:59; Status DC Potassium Chloride 70 meq/ Magnesium Sulfate 20 meq/ Multivitamins 10 ml/Chromium/ Copper/Manganese/ Seleni/Zn 1 ml/ Insulin Human Regular 15 unit/ Total Parenteral Nutrition/Amino Acids/Dextrose/ Fat Emulsion Intravenous 1,800 ml @ 75 mls/hr TPN CONT IV Last administered on 09/12/19at 21:39; Start 09/12/19 at 22:00; Stop 09/13/19 at 21:59; Status DC Meropenem 500 mg/ Sodium Chloride 50 ml @ 100 mls/hr Q6HRS IV Last administered on 09/14/19at 06:02; Start 09/12/19 at 18:00; Stop 09/14/19 at 09:59; Status DC Barium Sulfate (Varibar Thin Liquid Apple) 148 gm 1X ONCE PO ; Start 09/13/19 at 11:45; Stop 09/13/19 at 11:49; Status DC Potassium Chloride 70 meq/ Magnesium Sulfate 20 meq/ Multivitamins 10 ml/Chromium/ Copper/Manganese/ Seleni/Zn 1 ml/ Insulin Human Regular 15 unit/ Total Parenteral Nutrition/Amino Acids/Dextrose/ Fat Emulsion Intravenous 1,800 ml @ 75 mls/hr TPN CONT IV Last administered on 09/13/19at 22:27; Start 09/13/19 at 22:00; Stop 09/14/19 at 21:59; Status DC Piperacillin Sod/ Tazobactam Sod 3.375 gm/Sodium Chloride 50 ml @ 100 mls/hr Q6HRS IV Last administered on 09/22/19at 06:10; Start 09/14/19 at 12:00; Stop 09/22/19 at 07:26; Status DC Potassium Chloride 70 meq/ Magnesium Sulfate 20 meq/ Multivitamins 10 ml/Case Manager Specialist mium/ Copper/Manganese/ Seleni/Zn 1 ml/ Insulin Human Regular 15 unit/ Total Parenteral Nutrition/Amino Acids/Dextrose/ Fat Emulsion Intravenous 1,800 ml @ 75 mls/hr TPN CONT IV Last administered on 09/14/19at 22:03; Start 09/14/19 at 22:00; Stop 09/15/19 at 21:59; Status DC Potassium Chloride 70 meq/ Magnesium Sulfate 20 meq/ Multivitamins 10 ml/Chromium/ Copper/Manganese/ Seleni/Zn 1 ml/ Insulin Human Regular 15 unit/ Total Parenteral Nutrition/Amino Acids/Dextrose/ Fat Emulsion Intravenous 1,800 ml @ 75 mls/hr TPN CONT IV Last administered on 09/15/19at 22:33; Start 09/15/19 at 22:00; Stop 09/16/19 at 21:59; Status DC Potassium Chloride 70 meq/ Magnesium Sulfate 20 meq/ Multivitamins 10 ml/Chromium/ Copper/Manganese/ Seleni/Zn 1 ml/ Insulin Human Regular 15 unit/ Total Parenteral Nutrition/Amino Acids/Dextrose/ Fat Emulsion Intravenous 1,800 ml @ 75 mls/hr TPN CONT IV Last administered on 09/16/19at 23:13; Start 09/16/19 at 22:00; Stop 09/17/19 at 21:59; Status DC Potassium Chloride 80 meq/ Magnesium Sulfate 20 meq/ Multivitamins 10 ml/Chromium/ Copper/Manganese/ Seleni/Zn 1 ml/ Insulin Human Regular 15 unit/ Total Parenteral Nutrition/Amino Acids/Dextrose/ Fat Emulsion Intravenous 1,800 ml @ 75 mls/hr TPN CONT IV Last administered on 09/17/19at 22:30; Start 09/17/19 at 22:00; Stop 09/18/19 at 21:59; Status DC Potassium Chloride 80 meq/ Magnesium Sulfate 20 meq/ Multivitamins 10 ml/Chromium/ Copper/Manganese/ Seleni/Zn 1 ml/ Insulin Human Regular 15 unit/ Total Parenteral Nutrition/Amino Acids/Dextrose/ Fat Emulsion Intravenous 1,800 ml @ 75 mls/hr TPN CONT IV Last administered on 09/18/19at 21:54; Start 09/18/19 at 22:00; Stop 09/19/19 at 21:59; Status DC Potassium Chloride/Water 100 ml @ 100 mls/hr 1X ONCE IV Last administered on 09/19/19at 10:15; Start 09/19/19 at 10:00; Stop 09/19/19 at 10:59; Status DC Potassium Chloride 90 meq/ Magnesium Sulfate 20 meq/ Multivitamins 10 ml/Chromium/ Copper/Manganese/ Seleni/Zn 1 ml/ Insulin Human Regular 20 unit/ Total Parenteral Nutrition/Amino Acids/Dextrose/ Fat Emulsion Intravenous 1,800 ml @ 75 mls/hr TPN CONT IV Last administered on 09/19/19at 22:28; Start 09/19/19 at 22:00; Stop 09/20/19 at 21:59; Status DC Potassium Chloride 90 meq/ Magnesium Sulfate 20 meq/ Multivitamins 10 ml/Chromium/ Copper/Manganese/ Seleni/Zn 1 ml/ Insulin Human Regular 20 unit/ Total Parenteral Nutrition/Amino Acids/Dextrose/ Fat Emulsion Intravenous 1,800 ml @ 75 mls/hr TPN CONT IV Last administered on 09/20/19at 22:08; Start 09/20/19 at 22:00; Stop 09/21/19 at 21:59; Status DC Lorazepam (Ativan Inj) 0.25 mg PRN Q4HRS PRN IVP ANXIETY / AGITATION Last administered on 10/15/19at 13:37; Start 09/21/19 at 07:30 Potassium Chloride 90 meq/ Magnesium Sulfate 20 meq/ Multivitamins 10 ml/Chromium/ Copper/Manganese/ Seleni/Zn 1 ml/ Insulin Human Regular 20 unit/ Total Parenteral Nutrition/Amino Acids/Dextrose/ Fat Emulsion Intravenous 1,800 ml @ 75 mls/hr TPN CONT IV Last administered on 09/21/19at 23:13; Start 09/21/19 at 22:00; Stop 09/22/19 at 21:59; Status DC Furosemide (Lasix) 40 mg DAILY IVP Last administered on 09/23/19at 11:14; Start 09/21/19 at 13:30; Stop 09/25/19 at 09:12; Status DC Fluoxetine HCl (PROzac) 20 mg QHS PEG Last administered on 10/15/19at 21:52; Start 09/22/19 at 21:00 Fentanyl (Duragesic 50mcg/ Hr Patch) 1 patch Q72H TD Last administered on 09/22/19at 21:22; Start 09/22/19 at 21:00; Stop 10/01/19 at 12:00; Status DC Potassium Chloride 40 meq/ Potassium Acetate 60 meq/Magnesium Sulfate 10 meq/ Multivitamins 10 ml/Chromium/ Copper/Manganese/ Seleni/Zn 1 ml/ Insulin Human R egular 20 unit/ Total Parenteral Nutrition/Amino Acids/Dextrose/ Fat Emulsion Intravenous 1,800 ml @ 75 mls/hr TPN CONT IV Last administered on 09/23/19at 00:03; Start 09/22/19 at 22:00; Stop 09/23/19 at 21:59; Status DC Potassium Acetate 80 meq/Magnesium Sulfate 5 meq/ Multivitamins 10 ml/Chromium/ Copper/Manganese/ Seleni/Zn 1 ml/ Insulin Human Regular 20 unit/ Total Parenteral Nutrition/Amino Acids/Dextrose/ Fat Emulsion Intravenous 1,920 ml @ 80 mls/hr TPN CONT IV Last administered on 09/23/19at 21:59; Start 09/23/19 at 22:00; Stop 09/24/19 at 21:59; Status DC Potassium Acetate 60 meq/Magnesium Sulfate 5 meq/ Multivitamins 10 ml/Chromium/ Copper/Manganese/ Seleni/Zn 1 ml/ Insulin Human Regular 30 unit/ Total Parenteral Nutrition/Amino Acids/Dextrose/ Fat Emulsion Intravenous 1,920 ml @ 80 mls/hr TPN CONT IV Last administered on 09/24/19at 21:54; Start 09/24/19 at 22:00; Stop 09/25/19 at 21:59; Status DC Norepinephrine Bitartrate 8 mg/ Dextrose 258 ml @ 13.332 mls/ hr CONT PRN IV PER PROTOCOL Last administered on 09/25/19at 21:46; Start 09/25/19 at 06:30 Albumin Human 500 ml @ 125 mls/hr 1X ONCE IV Last administered on 09/25/19at 0 8:10; Start 09/25/19 at 08:15; Stop 09/25/19 at 12:14; Status DC Potassium Acetate 40 meq/Magnesium Sulfate 5 meq/ Multivitamins 10 ml/Chromium/ Copper/Manganese/ Seleni/Zn 1 ml/ Insulin Human Regular 30 unit/ Total Parenteral Nutrition/Amino Acids/Dextrose/ Fat Emulsion Intravenous 1,920 ml @ 80 mls/hr TPN CONT IV Last administered on 09/25/19at 22:23; Start 09/25/19 at 22:00; Stop 09/26/19 at 21:59; Status DC Meropenem 1 gm/ Sodium Chloride 100 ml @ 200 mls/hr Q8HRS IV ; Start 09/25/19 at 14:00; Status Cancel Meropenem 1 gm/ Sodium Chloride 100 ml @ 200 mls/hr Q8HRS IV Last administered on 09/25/19at 11:04; Start 09/25/19 at 10:00; Stop 09/25/19 at 13:00; Status DC Meropenem 1 gm/ Sodium Chloride 100 ml @ 200 mls/hr Q12HR IV Last administered on 10/13/19at 08:27; Start 09/25/19 at 21:00; Stop 10/13/19 at 08:56; Status DC Sodium Chloride 1,000 ml @ 1,000 mls/hr 1X ONCE IV Last administered on 09/25/19at 11:06; Start 09/25/19 at 10:45; Stop 09/25/19 at 11:44; Status DC Micafungin Sodium 100 mg/Dextrose 100 ml @ 100 mls/hr Q24H IV Last administered on 10/12/19at 12:34; Start 09/25/19 at 11:00; Stop 10/13/19 at 08:56; Status DC Daptomycin 410 mg/ Sodium Chloride 50 ml @ 100 mls/hr Q24H IV Last administered on 09/27/19at 13:33; Start 09/25/19 at 14:00; Stop 09/28/19 at 08:30; Status DC Midazolam HCl (Versed) 2 mg STK-MED ONCE .ROUTE ; Start 09/25/19 at 14:47; Stop 09/25/19 at 14:48; Status DC Fentanyl Citrate (Fentanyl 2ml Vial) 100 mcg STK-MED ONCE .ROUTE ; Start 09/25/19 at 14:47; Stop 09/25/19 at 14:48; Status DC Flumazenil (Romazicon) 0.5 mg STK-MED ONCE IV ; Start 09/25/19 at 14:48; Stop 09/25/19 at 14:48; Status DC Naloxone HCl (Narcan) 0.4 mg STK-MED ONCE .ROUTE ; Start 09/25/19 at 14:48; Stop 09/25/19 at 14:48; Status DC Lidocaine HCl (Lidocaine 1% 20ml Vial) 20 ml STK-MED ONCE .ROUTE ; Start 09/25/19 at 14:48; Stop 09/25/19 at 14:48; Status DC Midazolam HCl (Versed) 2 mg 1X ONCE IV Last administered on 09/25/19at 15:28; Start 09/25/19 at 15:00; Stop 09/25/19 at 15:01; Status DC Fentanyl Citrate (Fentanyl 2ml Vial) 100 mcg 1X ONCE IV Last administered on 09/25/19at 15:28; Start 09/25/19 at 15:00; Stop 09/25/19 at 15:01; Status DC Lidocaine HCl (Lidocaine 1% 20ml Vial) 20 ml 1X ONCE INJ Last administered on 09/25/19at 15:30; Start 09/25/19 at 15:00; Stop 09/25/19 at 15:01; Status DC Sodium Chloride 1,000 ml @ 100 mls/hr Q10H IV Last administered on 10/04/19at 07:30; Start 09/25/19 at 20:00; Stop 10/04/19 at 11:26; Status DC Sodium Bicarbonate (Sodium Bicarb Adult 8.4% Syr) 50 meq 1X ONCE IV Last administered on 09/25/19at 21:47; Start 09/25/19 at 22:00; Stop 09/25/19 at 22:01; Status DC Potassium Acetate 40 meq/Magnesium Sulfate 5 meq/ Multivitamins 10 ml/Chromium/ Copper/Manganese/ Seleni/Zn 1 ml/ Insulin Human Regular 30 unit/ Total Parenteral Nutrition/Amino Acids/Dextrose/ Fat Emulsion Intravenous 1,920 ml @ 80 mls/hr TPN CONT IV Last administered on 09/26/19at 22:28; Start 09/26/19 at 22:00; Stop 09/27/19 at 21:59; Status DC Sodium Chloride 500 ml @ 500 mls/hr 1X ONCE IV Last administered on 09/27/19at 06:39; Start 09/27/19 at 06:45; Stop 09/27/19 at 07:44; Status DC Potassium Acetate 40 meq/Magnesium Sulfate 5 meq/ Multivitamins 10 ml/Chromium/ Copper/Manganese/ Seleni/Zn 1 ml/ Insulin Human Regular 30 unit/ Total Parenteral Nutrition/Amino Acids/Dextrose/ Fat Emulsion Intravenous 1,920 ml @ 80 mls/hr TPN CONT IV Last administered on 09/27/19at 22:03; Start 09/27/19 at 22:00; Stop 09/28/19 at 21:59; Status DC Metoprolol Tartrate (Lopressor Vial) 5 mg PRN Q6HRS PRN IVP HYPERTENSION Last administered on 10/06/19at 10:14; Start 09/28/19 at 09:00 Potassium Acetate 40 meq/Magnesium Sulfate 5 meq/ Multivitamins 10 ml/Chromium/ Copper/Manganese/ Seleni/Zn 1 ml/ Insulin Human Regular 30 unit/ Total Parenteral Nutrition/Amino Acids/Dextrose/ Fat Emulsion Intravenous 1,920 ml @ 80 mls/hr TPN CONT IV Last administered on 09/28/19at 21:26; Start 09/28/19 at 22:00; Stop 09/29/19 at 21:59; Status DC Potassium Acetate 40 meq/Magnesium Sulfate 5 meq/ Multivitamins 10 ml/Chromium/ Copper/Manganese/ Seleni/Zn 1 ml/ Insulin Human Regular 30 unit/ Total Parenteral Nutrition/Amino Acids/Dextrose/ Fat Emulsion Intravenous 1,920 ml @ 80 mls/hr TPN CONT IV Last administered on 09/29/19at 23:23; Start 09/29/19 at 22:00; Stop 09/30/19 at 21:59; Status DC Potassium Acetate 40 meq/Magnesium Sulfate 5 meq/ Multivitamins 10 ml/Chromium/ Copper/Manganese/ Seleni/Zn 1 ml/ Insulin Human Regular 30 unit/ Total Parenteral Nutrition/Amino Acids/Dextrose/ Fat Emulsion Intravenous 1,920 ml @ 80 mls/hr TPN CONT IV Last administered on 09/30/19at 21:35; Start 09/30/19 at 22:00; Stop 10/01/19 at 21:59; Status DC Furosemide (Lasix) 20 mg 1X ONCE IVP Last administered on 10/01/19at 06:26; Start 10/01/19 at 06:15; Stop 10/01/19 at 06:16; Status DC Methylprednisolone Sodium Succinate (SOLU-Medrol 125MG VIAL) 125 mg 1X ONCE IV Last administered on 10/01/19at 06:26; Start 10/01/19 at 06:15; Stop 10/01/19 at 06:16; Status DC Albuterol/ Ipratropium (Duoneb) 3 ml Q4HRS NEB Last administered on 10/18/19at 08:30; Start 10/01/19 at 08:00 Fentanyl Citrate 30 ml @ 0 mls/hr CONT PRN IV SEE PROTOCOL Last administered on 10/17/19at 13:41; Start 10/01/19 at 06:00 Propofol 100 ml @ 0 mls/hr CONT PRN IV SEE PROTOCOL Last administered on 10/08/19at 23:50; Start 10/01/19 at 06:00 Fentanyl Citrate (Fentanyl 2ml Vial) 25 mcg PRN Q1HR PRN IV SEE COMMENTS; Start 10/01/19 at 06:00 Fentanyl Citrate (Fentanyl 2ml Vial) 50 mcg PRN Q1HR PRN IV SEE COMMENTS; Start 10/01/19 at 06:00 Chlorhexidine Gluconate (Peridex) 15 ml BID MM ; Start 10/01/19 at 09:00; Stop 10/01/19 at 07:58; Status DC Potassium Acetate 40 meq/Magnesium Sulfate 5 meq/ Multivitamins 10 ml/Chromium/ Copper/Manganese/ Seleni/Zn 1 ml/ Insulin Human Regular 30 unit/ Total Parenteral Nutrition/Amino Acids/Dextrose/ Fat Emulsion Intravenous 1,920 ml @ 80 mls/hr TPN CONT IV Last administered on 10/01/19at 21:19; Start 10/01/19 at 22:00; Stop 10/02/19 at 21:59; Status DC Acetylcysteine (Mucomyst 20% Resp Treatment) 600 mg BID NEB Last administered on 10/07/19at 09:33; Start 10/01/19 at 21:00; Stop 10/07/19 at 10:39; Status DC Magnesium Sulfate 100 ml @ 25 mls/hr 1X ONCE IV Last administered on 10/01/19at 15:48; Start 10/01/19 at 15:45; Stop 10/01/19 at 19:44; Status DC Potassium Acetate 40 meq/Magnesium Sulfate 5 meq/ Multivitamins 10 ml/Chromium/ Copper/Manganese/ Seleni/Zn 1 ml/ Insulin Human Regular 30 unit/ Total Parenteral Nutrition/Amino Acids/Dextrose/ Fat Emulsion Intravenous 1,920 ml @ 80 mls/hr TPN CONT IV Last administered on 10/02/19at 21:35; Start 10/02/19 at 22:00; Stop 10/03/19 at 21:59; Status DC Potassium Chloride/Water 100 ml @ 100 mls/hr Q1H IV Last administered on 10/03/19at 08:31; Start 10/03/19 at 07:00; Stop 10/03/19 at 08:59; Status DC Potassium Acetate 40 meq/Magnesium Sulfate 5 meq/ Multivitamins 10 ml/Chromium/ Copper/Manganese/ Seleni/Zn 1 ml/ Insulin Human Regular 30 unit/ Total Parenteral Nutrition/Amino Acids/Dextrose/ Fat Emulsion Intravenous 1,920 ml @ 80 mls/hr TPN CONT IV Last administered on 10/03/19at 21:54; Start 10/03/19 at 22:00; Stop 10/04/19 at 19:34; Status DC Lidocaine HCl (Buffered Lidocaine 1%) 3 ml STK-MED ONCE .ROUTE ; Start 10/03/19 at 12:14; Stop 10/03/19 at 12:14; Status DC Lidocaine HCl (Buffered Lidocaine 1%) 3 ml 1X ONCE IJ Last administered on 10/03/19at 13:11; Start 10/03/19 at 13:00; Stop 10/03/19 at 13:01; Status DC Magnesium Sulfate 50 ml @ 25 mls/hr 1X ONCE IV ; Start 10/04/19 at 08:15; Stop 10/04/19 at 10:14; Status DC Potassium Acetate 40 meq/Magnesium Sulfate 10 meq/ Multivitamins 10 ml/Chromium/ Copper/Manganese/ Seleni/Zn 1 ml/ Insulin Human Regular 20 unit/ Total Parenteral Nutrition/Amino Acids/Dextrose/ Fat Emulsion Intravenous 1,920 ml @ 80 mls/hr TPN CONT IV Last administered on 10/04/19at 21:32; Start 10/04/19 at 22:00; Stop 10/05/19 at 21:59; Status DC Potassium Chloride/Water 100 ml @ 100 mls/hr Q1H IV Last administered on 10/05/19at 09:12; Start 10/05/19 at 08:00; Stop 10/05/19 at 09:59; Status DC Alteplase, Recombinant (Cathflo For Central Catheter Clearance) 4 mg 1X ONCE INT CAT ; Start 10/05/19 at 09:15; Stop 10/05/19 at 09:16; Status UNV Alteplase, Recombinant (Cathflo For Central Catheter Clearance) 4 mg 1X ONCE INT CAT ; Start 10/05/19 at 09:15; Stop 10/05/19 at 09:16; Status UNV Alteplase, Recombinant (Cathflo For Central Catheter Clearance) 4 mg 1X ONCE INT CAT ; Start 10/05/19 at 09:15; Stop 10/05/19 at 09:16; Status UNV Alteplase, Recombinant 4 mg/ Sodium Chloride 20 ml @ 20 mls/hr 1X ONCE IV Last administered on 10/05/19at 10:10; Start 10/05/19 at 10:00; Stop 10/05/19 at 10:59; Status DC Alteplase, Recombinant 4 mg/ Sodium Chloride 20 ml @ 20 mls/hr 1X ONCE IV Last administered on 10/05/19at 10:09; Start 10/05/19 at 10:00; Stop 10/05/19 at 10:59; Status DC Alteplase, Recombinant 4 mg/ Sodium Chloride 20 ml @ 20 mls/hr 1X ONCE IV Last administered on 10/05/19at 10:09; Start 10/05/19 at 10:00; Stop 10/05/19 at 10:59; Status DC Potassium Acetate 60 meq/Magnesium Sulfate 10 meq/ Multivitamins 10 ml/Chromium/ Copper/Manganese/ Seleni/Zn 1 ml/ Insulin Human Regular 20 unit/ Total Parenteral Nutrition/Amino Acids/Dextrose/ Fat Emulsion Intravenous 1,920 ml @ 80 mls/hr TPN CONT IV Last administered on 10/05/19at 21:55; Start 10/05/19 at 22:00; Stop 10/06/19 at 21:59; Status DC Albumin Human 500 ml @ 125 mls/hr 1X ONCE IV Last administered on 10/06/19at 12:01; Start 10/06/19 at 11:15; Stop 10/06/19 at 15:14; Status DC Sodium Chloride 500 ml @ 500 mls/hr 1X ONCE IV Last administered on 10/06/19at 13:50; Start 10/06/19 at 11:15; Stop 10/06/19 at 12:14; Status DC Potassium Acetate 60 meq/Magnesium Sulfate 14 meq/ Multivitamins 10 ml/Chromium/ Copper/Manganese/ Seleni/Zn 1 ml/ Insulin Human Regular 20 unit/ Total Parenteral Nutrition/Amino Acids/Dextrose/ Fat Emulsion Intravenous 1,920 ml @ 80 mls/hr TPN CONT IV Last administered on 10/06/19at 22:26; Start 10/06/19 at 22:00; Stop 10/07/19 at 21:59; Status DC Ciprofloxacin/ Dextrose 200 ml @ 200 mls/hr Q12HR IV Last administered on 10/13/19at 08:27; Start 10/06/19 at 21:00; Stop 10/13/19 at 08:56; Status DC Albumin Human 250 ml @ 62.5 mls/hr 1X ONCE IV Last administered on 10/07/19at 11:09; Start 10/07/19 at 11:00; Stop 10/07/19 at 14:59; Status DC Furosemide (Lasix) 20 mg 1X ONCE IVP Last administered on 10/07/19at 14:52; Start 10/07/19 at 10:45; Stop 10/07/19 at 10:49; Status DC Potassium Acetate 60 meq/Magnesium Sulfate 14 meq/ Multivitamins 10 ml/Chromium/ Copper/Manganese/ Seleni/Zn 1 ml/ Insulin Human Regular 15 unit/ Total Parenter al Nutrition/Amino Acids/Dextrose/ Fat Emulsion Intravenous 1,920 ml @ 80 mls/hr TPN CONT IV Last administered on 10/07/19at 22:08; Start 10/07/19 at 22:00; Stop 10/08/19 at 21:59; Status DC Potassium Acetate 60 meq/Magnesium Sulfate 14 meq/ Multivitamins 10 ml/Chromium/ Copper/Manganese/ Seleni/Zn 1 ml/ Insulin Human Regular 15 unit/ Total Parenteral Nutrition/Amino Acids/Dextrose/ Fat Emulsion Intravenous 1,920 ml @ 80 mls/hr TPN CONT IV Last administered on 10/08/19at 22:12; Start 10/08/19 at 22:00; Stop 10/09/19 at 21:59; Status DC Potassium Acetate 60 meq/Magnesium Sulfate 14 meq/ Multivitamins 10 ml/Chromium/ Copper/Manganese/ Seleni/Zn 1 ml/ Insulin Human Regular 15 unit/ Total Parenteral Nutrition/Amino Acids/Dextrose/ Fat Emulsion Intravenous 1,920 ml @ 80 mls/hr TPN CONT IV Last administered on 10/09/19at 22:22; Start 10/09/19 at 22:00; Stop 10/10/19 at 21:59; Status DC Furosemide (Lasix) 20 mg 1X ONCE IVP Last administered on 10/10/19at 11:07; Start 10/10/19 at 10:30; Stop 10/10/19 at 10:34; Status DC Potassium Acetate 60 meq/Magnesium Sulfate 14 meq/ Multivitamins 10 ml/Chromium/ Copper/Manganese/ Seleni/Zn 1 ml/ Insulin Human Regular 15 unit/ Sodium Chloride 20 meq/Total Parenteral Nutrition/Amino Acids/Dextrose/ Fat Emulsion Intravenous 1,920 ml @ 80 mls/hr TPN CONT IV Last administered on 10/10/19at 21:54; Start 10/10/19 at 22:00; Stop 10/11/19 at 21:59; Status DC Potassium Acetate 30 meq/Magnesium Sulfate 14 meq/ Multivitamins 10 ml/Chromium/ Copper/Manganese/ Seleni/Zn 1 ml/ Insulin Human Regular 15 unit/ Sodium Chloride 20 meq/Potassium Chloride 30 meq/ Total Parenteral Nutrition/Amino Acids/Dextrose/ Fat Emulsion Intravenous 1,920 ml @ 80 mls/hr TPN CONT IV Last administered on 10/11/19at 21:46; Start 10/11/19 at 22:00; Stop 10/12/19 at 21:59; Status DC Sodium Chloride 80 meq/Potassium Chloride 30 meq/ Potassium Acetate 30 meq/Magnesium Sulfate 14 meq/ Multivitamins 10 ml/Chromium/ Copper/Manganese/ Seleni/Zn 1 ml/ Insulin Human Regular 15 unit/ Total Parenteral Nutrition/Amino Acids/Dextrose/ Fat Emulsion Intravenous 1,920 ml @ 80 mls/hr TPN CONT IV Last administered on 10/12/19at 22:33; Start 10/12/19 at 22:00; Stop 10/13/19 at 21:59; Status DC Furosemide (Lasix) 40 mg 1X ONCE IVP Last administered on 10/12/19at 16:27; St art 10/12/19 at 15:30; Stop 10/12/19 at 15:33; Status DC Albumin Human 250 ml @ 62.5 mls/hr 1X ONCE IV Last administered on 10/12/19at 16:27; Start 10/12/19 at 15:30; Stop 10/12/19 at 19:29; Status DC Sodium Chloride 80 meq/Potassium Chloride 30 meq/ Potassium Acetate 30 meq/Magnesium Sulfate 14 meq/ Multivitamins 10 ml/Chromium/ Copper/Manganese/ Seleni/Zn 1 ml/ Insulin Human Regular 15 unit/ Total Parenteral Nutrition/Amino Acids/Dextrose/ Fat Emulsion Intravenous 1,920 ml @ 80 mls/hr TPN CONT IV [place] st administered on 10/13/19at 22:25; Start 10/13/19 at 22:00; Stop 10/14/19 at 21:59; Status DC Sodium Chloride 80 meq/Potassium Chloride 30 meq/ Potassium Acetate 30 meq/Magnesium Sulfate 14 meq/ Multivitamins 10 ml/Chromium/ Copper/Manganese/ Seleni/Zn 1 ml/ Insulin Human Regular 15 unit/ Total Parenteral Nutrition/Amino Acids/Dextrose/ Fat Emulsion Intravenous 1,920 ml @ 80 mls/hr TPN CONT IV Last administered on 10/14/19at 21:32; Start 10/14/19 at 22:00; Stop 10/15/19 at 21:59; Status DC Sodium Chloride 80 meq/Potassium Chloride 30 meq/ Potassium Acetate 30 meq/Magnesium Sulfate 14 meq/ Multivitamins 10 ml/Chromium/ Copper/Manganese/ Seleni/Zn 1 ml/ Insulin Human Regular 15 unit/ Total Parenteral Nutrition/Amino Acids/Dextrose/ Fat Emulsion Intravenous 1,920 ml @ 80 mls/hr TPN CONT IV Last administered on 10/15/19at 21:53; Start 10/15/19 at 22:00; Stop 10/16/19 at 21:59; Status DC Acetylcysteine (Mucomyst 20% Resp Treatment) 600 mg RTBID NEB Last administered on 10/18/19at 08:30; Start 10/15/19 at 12:00 Sodium Chloride 80 meq/Potassium Chloride 30 meq/ Potassium Acetate 30 meq/Magnesium Sulfate 14 meq/ Multivitamins 10 ml/Chromium/ Copper/Manganese/ Seleni/Zn 1 ml/ Insulin Human Regular 15 unit/ Total Parenteral Nutrition/Amino Acids/Dextrose/ Fat Emulsion Intravenous 1,920 ml @ 80 mls/hr TPN CONT IV Last administered on 10/16/19at 22:06; Start 10/16/19 at 22:00; Stop 10/17/19 at 21:59; Status DC Meropenem 500 mg/ Sodium Chloride 50 ml @ 100 mls/hr Q6HRS IV Last administered on 10/18/19at 06:14; Start 10/16/19 at 18:00 Daptomycin 500 mg/ Sodium Chloride 50 ml @ 100 mls/hr Q24H IV Last administered on 10/17/19at 18:19; Start 10/16/19 at 19:00 Sodium Chloride 80 meq/Potassium Chloride 30 meq/ Potassium Acetate 30 meq/Magnesium Sulfate 14 meq/ Multivitamins 10 ml/Chromium/ Copper/Manganese/ Seleni/Zn 1 ml/ Insulin Human Regular 15 unit/ Total Parenteral Nutrition/Amino Acids/Dextrose/ Fat Emulsion Intravenous 1,920 ml @ 80 mls/hr TPN CONT IV Last administered on 10/17/19at 22:09; Start 10/17/19 at 22:00; Stop 10/18/19 at 21:59 Heparin Sodium (Porcine) 1000 unit/Sodium Chloride 1,001 ml @ 1,001 mls/hr 1X ONCE IRR ; Start 10/18/19 at 06:00; Stop 10/18/19 at 06:59; Status DC Propofol (Diprivan) 200 mg STK-MED ONCE IV ; Start 10/18/19 at 07:44; Stop 10/18/19 at 07:44; Status DC Lidocaine HCl (Lidocaine Pf 2% Vial) 5 ml STK-MED ONCE .ROUTE ; Start 10/18/19 at 07:44; Stop 10/18/19 at 07:44; Status DC Fentanyl Citrate (Fentanyl 2ml Vial) 100 mcg STK-MED ONCE .ROUTE ; Start 10/18/19 at 07:44; Stop 10/18/19 at 07:44; Status DC Rocuronium [place] (Zemuron) 100 mg STK-MED ONCE .ROUTE ; Start 10/18/19 at 07:44; Stop 10/18/19 at 07:44; Status DC Micafungin Sodium 100 mg/Dextrose 100 ml @ 100 mls/hr Q24H IV Last administered on 10/18/19at 08:21; Start 10/18/19 at 08:30 Bupivacaine HCl/ Epinephrine Bitart (Sensorcain-Epi 0.5%-1:[id number] Mpf) 30 ml STK-MED ONCE .ROUTE ; Start 10/18/19 at 08:34; Stop 10/18/19 at 08:35; Status DC Iohexol (Omnipaque 300 Mg/ml) 50 ml STK-MED ONCE .ROUTE ; Start 10/18/19 at 08:35; Stop 10/18/19 at 08:35; Status DC Sodium Chloride 80 meq/Potassium Chloride 30 meq/ Potassium Acetate 30 meq/Magnesium Sulfate 14 meq/ Multivitamins 10 ml/Chromium/ Copper/Manganese/ Seleni/Zn 1 ml/ Insulin Human Regular 15 unit/ Total Parenteral Nutrition/Amino Acids/Dextrose/ Fat Emulsion Intravenous 1,920 ml @ 80 mls/hr TPN CONT IV ; Start 10/18/19 at 22:00; Stop 10/19/19 at 21:59 Active Scripts Active Reported Bisoprolol Fumarate 5 Mg Tablet 10 Mg PO DAILY Vitals/I & O Vital Sign - Last 24 Hours 10/17/19 10/17/19 10/17/19 10/17/19 10:00 11:00 11:55 12:00 Temp 98.4 98.4 Pulse 116 118 125 Resp 30 26 20 B/P (MAP) 116/72 (87) 123/73 (90) 131/68 (89) Pulse Ox 99 99 100 99 O2 Delivery Tracheal Collar Tracheal Collar Tracheal Collar Tracheal Collar O2 Flow Rate 8.0 10/17/19 10/17/19 10/17/19 10/17/19 12:00 13:00 13:41 14:00 Pulse 129 124 Resp 27 25 23 B/P (MAP) 121/73 (89) 133/88 (103) Pulse Ox 97 97 100 O2 Delivery Trach Collar Tracheal Collar Tracheal Collar Tracheal Collar 10/17/19 10/17/19 10/17/19 10/17/19 15:00 16:00 16:00 16:22 Pulse 133 132 Resp 23 31 B/P (MAP) 134/79 (97) 119/73 (88) Pulse Ox 100 99 99 O2 Delivery Tracheal Collar Tracheal Collar Trach Collar Tracheal Collar O2 Flow Rate 8.0 10/17/19 10/17/19 10/17/19 10/17/19 17:00 18:00 19:00 20:00 Temp 102.0 102.0 Pulse 128 132 130 Resp 29 33 33 B/P (MAP) 112/55 (74) 121/64 (83) 113/68 (83) Pulse Ox 97 92 96 O2 Delivery Tracheal Collar Tracheal Collar Tracheal Collar Trach Collar O2 Flow Rate 8.0 10/17/19 10/17/19 10/17/19 10/17/19 20:00 20:15 21:00 22:00 Temp 101.0 101.0 Pulse 130 128 118 Resp 23 27 22 B/P (MAP) 128/75 (92) 110/65 (80) 104/64 (77) Pulse Ox 99 98 96 97 O2 Delivery Tracheal Collar Tracheal Collar Tracheal Collar Tracheal Collar O2 Flow Rate 8.0 10/17/19 10/17/19 10/18/19 10/18/19 23:00 23:44 00:00 00:00 Temp 98.6 98.6 Pulse 109 112 Resp 28 B/P (MAP) 109/64 (79) 105/63 (77) Pulse Ox 97 99 99 O2 Delivery Tracheal Collar Tracheal Collar Trach Collar Tracheal Collar O2 Flow Rate 8.0 8.0 10/18/19 10/18/19 10/18/19 10/18/19 01:00 02:00 03:00 04:00 Temp 98.9 98.9 Pulse 107 113 118 114 Resp 24 21 26 B/P (MAP) 95/60 (72) 116/71 (86) 123/72 (89) 123/77 (92) Pulse Ox 100 100 98 97 O2 Delivery Tracheal Collar Tracheal Collar Tracheal Collar Tracheal Collar 10/18/19 10/18/19 10/18/19 10/18/19 04:00 05:00 06:00 07:00 Pulse 114 117 117 Resp 29 25 21 B/P (MAP) 125/75 (92) 114/84 (94) 168/99 (122) Pulse Ox 99 100 99 O2 Delivery Trach Collar Tracheal Collar Tracheal Collar Tracheal Collar O2 Flow Rate 8.0 10/18/19 10/18/19 08:00 08:30 Temp 98.9 98.9 Pulse 119 Resp 22 B/P (MAP) 128/77 (94) Pulse Ox 99 99 O2 Delivery Tracheal Collar Tracheal Collar O2 Flow Rate 8.0 Intake and Output 10/17/19 10/17/19 10/18/19 15:00 23:00 07:00 Intake Total 2354 ml Output Total 700 ml 635 ml 1105 ml Balance -700 ml -635 ml 1249 ml Hemodynamically unstable?: No Is patient in severe pain?: No Is NPO status required?: No CARIN FERNANDEZ MD Oct 18, 2019 09:21
--- NOTE | 2019-10-18 09:56 | PDOC ---
SURGICAL PROGRESS NOTE Subjective Pre-Op Note 48 yo F with severe necrotizing pancreatitis, gallstone TO OR for pancreatic necrosectomy, cholecystectomy and feeding tube placement Pt awake and alert D/w pt's family extensively R/R/B/A of surgery. Risks, including, but not limited to: bleeding, infection, damage to surrounding structures, risk of anesthesia, risk of pancreatic fistula, risk of (at least 5%). They appear to understand, their questions are answered and they elect to proceed. Vital Signs Vital Signs Date Time Temp Pulse Resp B/P (MAP) Pulse Ox O2 Delivery O2 Flow Rate FiO2 10/18/19 08:30 99 Tracheal Collar 8.0 10/18/19 08:00 98.9 119 22 128/77 (94) 98.9 I&O Intake and Output 10/18/19 07:00 Intake Total 2354 ml Output Total 2440 ml Balance -86 ml IV Total 2354 ml Output Urine Total 1690 ml Gastric Drainage Total 750 ml # Bowel Movements 1 Labs Laboratory Tests Test 10/16/19 11:52 10/17/19 00:09 10/17/19 05:53 10/17/19 06:00 Glucose (Fingerstick) 128 mg/dL (70-99) 123 mg/dL (70-99) 125 mg/dL (70-99) Sodium Level 137 mmol/L (136-145) Potassium Level 4.4 mmol/L (3.5-5.1) Chloride Level 101 mmol/L (98-107) Carbon Dioxide Level 35 mmol/L (21-32) Anion Gap 1 (6-14) Blood Urea Nitrogen 16 mg/dL (7-20) Creatinine 0.7 mg/dL (0.6-1.0) Estimated GFR (Cockcroft-Gault) 88.9 Glucose Level 129 mg/dL (70-99) Calcium Level 10.7 mg/dL (8.5-10.1) Test 10/17/19 11:51 10/18/19 00:24 10/18/19 05:25 10/18/19 05:34 Glucose (Fingerstick) 125 mg/dL (70-99) 128 mg/dL (70-99) 128 mg/dL (70-99) White Blood Count 14.8 x10^3/uL (4.0-11.0) Red Blood Count 2.95 x10^6/uL (3.50-5.40) Hemoglobin 8.1 g/dL (12.0-15.5) Hematocrit 25.1 % (36.0-47.0) Mean Corpuscular Volume 85 fL (79-100) Mean Corpuscular Hemoglobin 27 pg (25-35) Mean Corpuscular Hemoglobin Concent 32 g/dL (31-37) Red Cell Distribution Width 18.2 % (11.5-14.5) Platelet Count 452 x10^3/uL (140-400) Neutrophils (%) (Auto) 80 % (31-73) Lymphocytes (%) (Auto) 10 % (24-48) Monocytes (%) (Auto) 8 % (0-9) Eosinophils (%) (Auto) 1 % (0-3) Basophils (%) (Auto) 0 % (0-3) Neutrophils # (Auto) 11.9 x10^3/uL (1.8-7.7) Lymphocytes # (Auto) 1.4 x10^3/uL (1.0-4.8) Monocytes # (Auto) 1.2 x10^3/uL (0.0-1.1) Eosinophils # (Auto) 0.2 x10^3/uL (0.0-0.7) Basophils # (Auto) 0.0 x10^3/uL (0.0-0.2) Sodium Level 136 mmol/L (136-145) Potassium Level 4.4 mmol/L (3.5-5.1) Chloride Level 101 mmol/L (98-107) Carbon Dioxide Level 34 mmol/L (21-32) Anion Gap 1 (6-14) Blood Urea Nitrogen 14 mg/dL (7-20) Creatinine 0.5 mg/dL (0.6-1.0) Estimated GFR (Cockcroft-Gault) 131.1 BUN/Creatinine Ratio 28 (6-20) Glucose Level 136 mg/dL (70-99) Calcium Level 11.1 mg/dL (8.5-10.1) Phosphorus Level 3.9 mg/dL (2.6-4.7) Magnesium Level 2.1 mg/dL (1.8-2.4) Total Bilirubin 0.4 mg/dL (0.2-1.0) Aspartate Amino Transf (AST/SGOT) 18 U/L (15-37) Alanine Aminotransferase (ALT/SGPT) 12 U/L (14-59) Alkaline Phosphatase 118 U/L (46-116) Total Protein 4.7 g/dL (6.4-8.2) Albumin 1.1 g/dL (3.4-5.0) Albumin/Globulin Ratio 0.3 (1.0-1.7) Triglycerides Level 155 mg/dL (0-150) Laboratory Tests Test 10/17/19 11:51 10/18/19 00:24 10/18/19 05:25 10/18/19 05:34 Glucose (Fingerstick) 125 mg/dL (70-99) 128 mg/dL (70-99) 128 mg/dL (70-99) White Blood Count 14.8 x10^3/uL (4.0-11.0) Red Blood Count 2.95 x10^6/uL (3.50-5.40) Hemoglobin 8.1 g/dL (12.0-15.5) Hematocrit 25.1 % (36.0-47.0) Mean Corpuscular Volume 85 fL (79-100) Mean Corpuscular Hemoglobin 27 pg (25-35) Mean Corpuscular Hemoglobin Concent 32 g/dL (31-37) Red Cell Distribution Width 18.2 % (11.5-14.5) Platelet Count 452 x10^3/uL (140-400) Neutrophils (%) (Auto) 80 % (31-73) Lymphocytes (%) (Auto) 10 % (24-48) Monocytes (%) (Auto) 8 % (0-9) Eosinophils (%) (Auto) 1 % (0-3) Basophils (%) (Auto) 0 % (0-3) Neutrophils # (Auto) 11.9 x10^3/uL (1.8-7.7) Lymphocytes # (Auto) 1.4 x10^3/uL (1.0-4.8) Monocytes # (Auto) 1.2 x10^3/uL (0.0-1.1) Eosinophils # (Auto) 0.2 x10^3/uL (0.0-0.7) Basophils # (Auto) 0.0 x10^3/uL (0.0-0.2) Sodium Level 136 mmol/L (136-145) Potassium Level 4.4 mmol/L (3.5-5.1) Chloride Level 101 mmol/L (98-107) Carbon Dioxide Level 34 mmol/L (21-32) Anion Gap 1 (6-14) Blood Urea Nitrogen 14 mg/dL (7-20) Creatinine 0.5 mg/dL (0.6-1.0) Estimated GFR (Cockcroft-Gault) 131.1 BUN/Creatinine Ratio 28 (6-20) Glucose Level 136 mg/dL (70-99) Calcium Level 11.1 mg/dL (8.5-10.1) Phosphorus Level 3.9 mg/dL (2.6-4.7) Magnesium Level 2.1 mg/dL (1.8-2.4) Total Bilirubin 0.4 mg/dL (0.2-1.0) Aspartate Amino Transf (AST/SGOT) 18 U/L (15-37) Alanine Aminotransferase (ALT/SGPT) 12 U/L (14-59) Alkaline Phosphatase 118 U/L (46-116) Total Protein 4.7 g/dL (6.4-8.2) Albumin 1.1 g/dL (3.4-5.0) Albumin/Globulin Ratio 0.3 (1.0-1.7) Triglycerides Level 155 mg/dL (0-150) Problem List Problems Medical Problems: (1) Acute pancreatitis Status: Acute (2) Cholelithiasis Status: Acute Justicifation of Admission Dx: Justifications for Admission: Justification of Admission Dx: Yes DAVON SIMMS MD Oct 18, 2019 09:56
--- NOTE | 2019-10-18 10:10 | NUR ---
SS following up with discharge planning. SS reviewed pt chart and discussed with pt RN. Pt currently in surgery with Dr. Servin. Pt remains on trach collar and TPN. Pt on IV Meropenem and Daptomycin. Pt's family visited with pt prior to surgery. SS will continue to follow for discharge planning.
[2019-10-18] MEDS ORDERED: PHENYLEPHRINE 10 MG/ML VIAL. ONE ×3 (10:15→13:33)
[2019-10-18] MEDS ORDERED: DESFLURANE > 120 MINUTES IH ONE (10:18)
--- NOTE | 2019-10-18 10:18 | PDOC ---
Subjective: Subjective: I stopped by while still in ICU before leaving for OR. Doing okay, squeezes my hand. Objective: Objective: D/w nurse - more alert today. Vital Signs: Vital Signs Date Time Temp Pulse Resp B/P (MAP) Pulse Ox O2 Delivery O2 Flow Rate FiO2 10/18/19 08:30 99 Tracheal Collar 8.0 10/18/19 08:00 98.9 119 22 128/77 (94) 98.9 Labs: Laboratory Tests Test 10/17/19 11:51 10/18/19 00:24 10/18/19 05:25 10/18/19 05:34 Glucose (Fingerstick) 125 mg/dL 128 mg/dL 128 mg/dL White Blood Count 14.8 x10^3/uL Red Blood Count 2.95 x10^6/uL Hemoglobin 8.1 g/dL Hematocrit 25.1 % Mean Corpuscular Volume 85 fL Mean Corpuscular Hemoglobin 27 pg Mean Corpuscular Hemoglobin Concent 32 g/dL Red Cell Distribution Width 18.2 % Platelet Count 452 x10^3/uL Neutrophils (%) (Auto) 80 % Lymphocytes (%) (Auto) 10 % Monocytes (%) (Auto) 8 % Eosinophils (%) (Auto) 1 % Basophils (%) (Auto) 0 % Neutrophils # (Auto) 11.9 x10^3/uL Lymphocytes # (Auto) 1.4 x10^3/uL Monocytes # (Auto) 1.2 x10^3/uL Eosinophils # (Auto) 0.2 x10^3/uL Basophils # (Auto) 0.0 x10^3/uL Sodium Level 136 mmol/L Potassium Level 4.4 mmol/L Chloride Level 101 mmol/L Carbon Dioxide Level 34 mmol/L Anion Gap 1 Blood Urea Nitrogen 14 mg/dL Creatinine 0.5 mg/dL Estimated GFR (Cockcroft-Gault) 131.1 BUN/Creatinine Ratio 28 Glucose Level 136 mg/dL Calcium Level 11.1 mg/dL Phosphorus Level 3.9 mg/dL Magnesium Level 2.1 mg/dL Total Bilirubin 0.4 mg/dL Aspartate Amino Transf (AST/SGOT) 18 U/L Alanine Aminotransferase (ALT/SGPT) 12 U/L Alkaline Phosphatase 118 U/L Total Protein 4.7 g/dL Albumin 1.1 g/dL Albumin/Globulin Ratio 0.3 Triglycerides Level 155 mg/dL Test 10/18/19 09:52 Glucose (Fingerstick) 105 mg/dL PE: GEN: chronically ill, mother present LUNGS: trach collar NEURO/PSYCH: awake and alert A/P: Complicated pancreatitis -- To OR today; will follow. Justicifation of Admission Dx: Justifications for Admission: Justification of Admission Dx: Yes CYNDEE FALCON Oct 18, 2019 10:17
[2019-10-18] MEDS ORDERED: ALBUMIN HUMAN 5% 500 ML IV ONE ×2 (11:06→16:00)
[2019-10-18] MEDS ORDERED: VASOPRESSIN 20 UNIT/ML VIAL. ONE (12:23)
--- NOTE | 2019-10-18 12:48 | NUR ---
Patient's family in and out of room prior to surgery. Patient left for surgery around 0925 with TRANSFUSION AIDE and CHIEF PAYROLL CLERK.
[2019-10-18] MEDS ORDERED: ONDANSETRON PF 4 MG/2 ML VIAL. ONE (13:33)
--- NOTE | 2019-10-18 13:51 | RAD ---
EXAM: INTRAOPERATIVE CHOLANGIOGRAM. HISTORY: Intraoperative cholangiogram with cholecystectomy. COMPARISON: None. FINDINGS: 2 fluoroscopic images are obtained intraoperatively during injection of the cystic duct remnant after cholecystectomy. There are no filling defects to suggest retained stones. The common duct is not dilated. Fluoroscopy time 14 seconds. IMPRESSION: 1. No evidence of retained stones. Electronically signed by: Enzo Perera MD (10/18/2019 1:48 PM) [facility]
[2019-10-18] MEDS: IV NORMAL SALINE 1000ML BAG 1,000 ML IV SCH (14:33)
[2019-10-18] MEDS ORDERED: PHENYLEPHRINE in 0.9% NACL PF 1 MG/10 ML SYRINGE. IV ONE (14:44)
[2019-10-18] MEDS ORDERED: MORPHINE SULFATE 2 MG/ML VIAL. IV PRN (14:45)
[2019-10-18] MEDS ORDERED: 0.9 % SODIUM CHLORIDE 10 ML DISP.SYRIN. IV PRN (14:45)
[2019-10-18] MEDS ORDERED: NALOXONE 0.4 MG/ML VIAL. IV PRN (14:45)
[2019-10-18] MEDS ORDERED: ePHEDrine PF IN SALINE 50 MG/10 ML SYRINGE. IV ONE (14:45)
--- NOTE | 2019-10-18 15:10 | PDOC4 ---
OPERATIVE NOTE Date: Date: Oct 18, 2019 Pre-Op Diagnosis: Severe gallstone pancreatitis, necrotizing Post-Op Diagnosis: same, gastric outlet obstruction Procedure Performed: Exploratory laparotomy, lysis of adhesions, subtotal cholecystectomy with cholangiogram, gastrojejunostomy tube placement, pancreatic necrosectomy Surgeon: Renzo Simms Anesthesia Type: GETA Blood Loss: 500 Specimans Obtained: pancreatic necrosis, gallbladder Findings: extremely hostile abdomen secondary to extensive pancreatic necrosis, contracted gallbladder with stones, normal cholangiogram, gastric outlet obstruction secondary to pancreatitis Complications: none Operative Note: After obtaining informed consent, patient was taken to OR, induced under GETA a nd prepped in the usual fashion. Midline incision was made with cautery. Upon entering the abdominal cavity, the viscera was completely locked in. Extensive, careful blunt dissection was send to assist in mobilizing viscera, especially off fascia. Small bowel and colon appeared to be normal, although edematous, but was not fully dissected out, given patient's overall fragility and complexity. Careful dissection was carried out on lateral flanks, exposing bilateral areas of pancreatic necrosis. Several liters of pancreatic necrosis evacuated out. These areas, as well as accessing mid abdomen window below duodenum were used to provide extensive pancreatic necrosectomy. Extensive dissection was performed using blunt dissection and extensive irrigation, to remove all non viable tissue. This material amounted to about 10 cm cubed volume. Diffuse, oozing bleeding noted from all services being raw, but no overt bleeding encountered. Liver was main structure identified, as all other planes obliterated. Duodenum carefully dissected out. Gallbladder chronic inflamed and difficult to dissect out. Careful dome down dissection performed down to infundibulum. Given chronic inflammation, dissected out cystic duct seemed highly likely for inappropriate injury. As such, gallbladder was amputated near base with cautery. Area of cystic artery controlled with 3 0 vicryl. Gallbladder sent to pathology. Multiple stones were evacuated out from cystic duct remnant. Cholangiogram was obtained which demonstrated intact anatomy and no retained stones. Cystic duct remnant was controlled with 3 0 PDS. 19 KAYLIN drain was placed in this area. Distal stomach identified. Gastrotomy was made. Duodenum noted to be tight, c/w gastric outlet obstruction secondary to pancreatitis. Jejunal portion of feeding tube was introduced into duodenum and beyond. Balloon of gastric portion placed into stomach and 3 0 vicryl pursestring used to secured tube. Externally, GJ secured with 3 0 nylon. Copious irrigation. No evidence of bleeding or other pathology noted at time of closure. Multiple cheli drains placed as listed below. Fascia closed with 0 looped PDS. No evidence of increased abdominal pressure and peak pressures remained normal during closure. Additional 0 PDS fascia retention sutures placed. Skin repaired with 3 0 vicryl and 4 0 monocryl. Dressing placed. Gomez left in wound and secured with 3 0 nylon. Patient tolerated procedure, but required extensive fluid resuscitation and will transferred to ICU in intubated condition. All counts correct. Wound class is 4, dirty. Drains are: RUQ-KAYLIN drain in gallbladder fossa; Right mid abd-cheli drain in right flank; RLQ cheli in mid abdomen; gomez in midline, LUQ- gastrojejunostomy, LLQ 24 KAYLIN in right flank DAVON SIMMS MD Oct 18, 2019 15:10
[2019-10-18 15:40] LABS: RED BLOOD COUNT 2.36 x10^6/uL (3.50-5.40); RED CELL DISTRIBUTION WIDTH 16.7 % (11.5-14.5)
[2019-10-18] MEDS: MIDAZOLAM HCL 100 MG in IV NORMAL SALINE 100ML 100 ML IV PRN ×2 (15:40→21:49)
[2019-10-18] MEDS: NOREPINEPHRINE VIAL 8 MG in IV DEXTROSE 5% 250 ML IV PRN (15:41)
[2019-10-18] MEDS: ALBUMIN HUMAN 5% 500 ML IV PRN ×2 (15:41→16:06)
[2019-10-18] MEDS: VASOPRESSIN 20 UNIT in IV DEXTROSE 5% 100ML 100 ML IV PRN ×2 (15:42→21:49)
[2019-10-18 15:44] LABS: CALCIUM 7.5 mg/dL (8.5-10.1); CREATININE 0.7 mg/dL (0.6-1.0); GFR 88.9; POTASSIUM 4.3 mmol/L (3.5-5.1)
[2019-10-18 15:45] LABS: MAGNESIUM 1.4 mg/dL (1.8-2.4)
[2019-10-18] MEDS ORDERED: IV NORMAL SALINE 1000ML BAG 1,000 ML IV ONE (15:45)
[2019-10-18] MEDS ORDERED: ALBUMIN HUMAN 5% 500 ML IV PRN (15:45)
[2019-10-18 15:46] LABS: HEMOGLOBIN 6.7 g/dL (12.0-15.5); WHITE BLOOD COUNT 49.3 x10^3/uL (4.0-11.0)
[2019-10-18 15:47] LABS: HEMATOCRIT 20.9 % (36.0-47.0)
[2019-10-18 16:12] LABS: BASE EXCESS ABG -13 mmol/L (-3-3); HCO3 ABG 13 mmol/L (21-28); PCO2 ABG 32 mmHg (35-46); PO2 ABG 374 mmHg (75-108); SAT O2 ABG 99 % (92-99)
[2019-10-18 16:19] LABS: FIO2 ABG 80%+5
[2019-10-18] MEDS ORDERED: SODIUM BICARB ADULT 8.4% 50 MEQ/50 ML DISP.SYRIN. ONE (16:20)
[2019-10-18] MEDS ORDERED: SODIUM BICARBONATE VIAL 150 MEQ in IV DEXTROSE 5% 1,000 ML IV ONE (16:30)
[2019-10-18] MEDS ORDERED: SODIUM BICARB ADULT 8.4% 50 MEQ/50 ML DISP.SYRIN. IV ONE (16:30)
[2019-10-18] MEDS ORDERED: MAGNESIUM SULFATE 2GM 50 ML IV ONE (16:30)
--- NOTE | 2019-10-18 18:08 | RAD ---
Exam: Abdomen one view INDICATION: Postop TECHNIQUE: Supine view the abdomen Comparisons: None FINDINGS: There is a pigtail drain in the right lower quadrant. Dover drain likely over the midline abdomen. There is a left lower quadrant drain. Additionally there is a jejunostomy tube which has oral contrast in the jejunum. No bowel obstruction identified. Visualized osseous structures are unremarkable. IMPRESSION: Postoperative changes as described above. Electronically signed by: Renu Marie MD (10/18/2019 6:05 PM) [id number]
--- NOTE | 2019-10-18 20:26 | NUR ---
Patient arrived on unit from OR at 1515 accompanied by TAXONOMIST and RETAIL SERVICE TECHNICIAN. Patient sedated and placed on ventilator, managed by Dr. Gordillo. Dr. Servin at bedside. Patient severely hypotensive, 2,000 cc NS given as bolus, 1,000 5% Albumin given, levophed and vasopressin started. Stat labs drawn, two units PRBCs ordered as was 2 g Magnesium. Will recheck H&H post transfusion and Magnesium routine with morning labs. Dr. Servin gave the order to keep patient very sedated overnight to help recover and stabilize blood pressure. Patient has 3 KAYLIN drains and 2 Abramsons drains all with sanguinous fluid, notified Dr. Servin of quantity of drainage. Vital signs became more stable post transfusion. Dr. Servin gave updates to Marce Green David and Hyacinth. Update was also called to Marce via telephone contact after stabilization and update on post-op care. Patient's boyfriend Jamaal also updated.
[2019-10-18 21:35] LABS: HEMATOCRIT 23.1 % (36.0-47.0); HEMOGLOBIN 8.2 g/dL (12.0-15.5); RED BLOOD COUNT 2.77 x10^6/uL (3.50-5.40); RED CELL DISTRIBUTION WIDTH 14.8 % (11.5-14.5); WHITE BLOOD COUNT 21.5 x10^3/uL (4.0-11.0)
[2019-10-18] MEDS: DAPTOmycin (GENERIC) IVPB 500 MG in IV NORMAL SALINE 50ML 50 ML IV SCH (21:48)
[2019-10-18] MEDS ORDERED: DEXTROSE 70% IV SCH ×10 (22:00)
[2019-10-18] MEDS ORDERED: TOTAL PARENTERAL NUTRITION IV SCH ×10 (22:00)
[2019-10-18] MEDS ORDERED: AMINO ACID IV SCH ×10 (22:00)
[2019-10-18] MEDS ORDERED: [UNRECOGNIZED DRUG - OTHER] IV SCH ×10 (22:00)
[2019-10-19] VITALS (24 sets, daily range): BP systolic 86–127; BP diastolic 45–71
[2019-10-19] MEDS: IPRATRPIUM/ALBUTEROL 0.5/2.5MG 3 ML NEBU. NEB SCH ×7 (00:43→23:03)
[2019-10-19] MEDS: MEROPENEM 500 MG in IV NORMAL SALINE 50ML 50 ML IV SCH ×5 (02:28→23:46)
[2019-10-19] MEDS: INSULIN LISPRO 300 UNITS/3 ML VIAL. SQ SCH ×4 (06:10→17:52)
[2019-10-19 06:32] LABS: CALCIUM 9.2 mg/dL (8.5-10.1); CREATININE 0.8 mg/dL (0.6-1.0); GFR 76.2; POTASSIUM 3.9 mmol/L (3.5-5.1)
[2019-10-19 07:08] LABS: BASO # 0.1 x10^3/uL (0.0-0.2); BASO % 0 % (0-3); EOS % 0 % (0-3); HEMATOCRIT 21.6 % (36.0-47.0); HEMOGLOBIN 7.5 g/dL (12.0-15.5); LYMPH # 1.5 x10^3/uL (1.0-4.8); LYMPH % 8 % (24-48); MEAN CORPUSCULAR HEMOGLOBIN 29 pg (25-35); MEAN CORPUSCULAR HGB CONC 35 g/dL (31-37); MEAN CORPUSCULAR VOLUME 85 fL (79-100); MONO # 1.2 x10^3/uL (0.0-1.1); MONO % 6 % (0-9); NEUT # 16.1 x10^3/uL (1.8-7.7); NEUT % 85 % (31-73); PLATELET COUNT 253 x10^3/uL (140-400); RED BLOOD COUNT 2.55 x10^6/uL (3.50-5.40); RED CELL DISTRIBUTION WIDTH 14.8 % (11.5-14.5); WHITE BLOOD COUNT 18.9 x10^3/uL (4.0-11.0)
[2019-10-19] MEDS: ENOXAPARIN 40 MG/0.4 ML SYRINGE. SQ SCH (08:00)
[2019-10-19] MEDS: ACETYLCYSTEINE 20% for RESP TX 600 MG/3 ML. NEB SCH ×2 (08:00→20:00)
[2019-10-19 08:01] LABS: MAGNESIUM 2.1 mg/dL (1.8-2.4); PHOSPHORUS 3.5 mg/dL (2.6-4.7)
--- NOTE | 2019-10-19 08:08 | PDOC ---
Infectious Disease Note Subjective: Subjective Pt underwent Exploratory laparotomy, lysis of adhesions, subtotal cholecystectomy with cholangiogram, gastrojejunostomy tube placement, pancreatic necrosectomy yesterday T max 100.8 Intubated/sedated on pressors s/p 4 Units PRBCs Vital Signs: Vital Signs Vital Signs Date Time Temp Pulse Resp B/P (MAP) Pulse Ox O2 Delivery O2 Flow Rate FiO2 10/19/19 07:00 104 20 112/66 (81) 100 Ventilator 10/19/19 04:00 99.8 99.8 10/19/19 02:59 8.0 Physical Exam: PHYSICAL EXAM GENERAL: intubated/sedated HEENT: Anicteric, no thrush, NG tube in place NECK: Tracheostomy + LUNGS: Diminished aeration bases, CT on left HEART: S1, S2,regular ABDOMEN: Distention, bowel sounds hypoactive soft, grimaces to palpation,yoselin x2 3 KAYLIN drains, GT +, : Lind ( 09/24) EXTREMITIES: + edema BLE SKIN: no signs of gen rash LUE-PICC without signs of complications Medications: Inpatient Meds: Current Medications Medications (Trade) Dose Ordered Sig/Yvon Start Time Stop Time Status Last Admin Dose Admin Acetaminophen (Tylenol Supp) 650 mg PRN Q6HRS PRN 07/12/19 10:30 10/17/19 18:16 650 MG Acetaminophen (Tylenol) 650 mg PRN Q6HRS PRN 07/09/19 03:36 08/31/19 10:25 DC 08/04/19 19:56 650 MG Acetylcysteine (Mucomyst 20% Resp Treatment) 600 mg RTBID 10/15/19 12:00 10/18/19 20:01 600 MG Albumin Human 500 ml @ 125 mls/hr PRN Q1HR PRN 10/18/19 15:45 Albuterol Sulfate (Ventolin Neb Soln) 2.5 mg 1X ONCE 07/05/19 22:30 07/05/19 22:31 DC 07/06/19 00:56 2.5 MG Albuterol/ Ipratropium (Duoneb) 3 ml Q4HRS 10/01/19 08:00 10/19/19 04:28 3 ML Alteplase, Recombinant (Cathflo For Central Catheter Clearance) 4 mg 1X ONCE 10/05/19 09:15 10/05/19 09:16 UNV Alteplase, Recombinant 4 mg/ Sodium Chloride 20 ml @ 20 mls/hr 1X ONCE 10/05/19 10:00 10/05/19 10:59 DC 10/05/19 10:09 20 MLS/HR Amino Acids/ Glycerin/ Electrolytes 1,000 ml @ 75 mls/hr [id number] 08/08/19 21:15 UNV Artificial Tears (Artificial Tears) 1 drop PRN Q15MIN PRN 08/17/19 05:30 10/11/19 21:17 1 DROP Atenolol (Tenormin) 100 mg DAILY 07/05/19 09:00 07/04/19 20:08 DC Atropine Sulfate (ATROPINE 0.5mg SYRINGE) 0.5 mg PRN Q5MIN PRN 07/21/19 08:15 Barium Sulfate (Varibar Thin Liquid Apple) 148 gm 1X ONCE 09/13/19 11:45 09/13/19 11:49 DC Benzocaine (Hurricaine One) 1 spray 1X ONCE 07/08/19 14:30 07/08/19 14:31 DC 07/08/19 16:38 1 SPRAY Bisacodyl (Dulcolax Supp) 10 mg STK-MED ONCE 08/15/19 10:59 08/15/19 10:59 DC Bumetanide (Bumex) 2 mg DAILY 08/26/19 10:00 09/05/19 17:15 DC 09/05/19 08:07 2 MG Bupivacaine HCl/ Epinephrine Bitart (Sensorcain-Epi 0.5%-1:[id number] Mpf) 30 ml STK-MED ONCE 10/18/19 08:34 10/18/19 08:35 DC Calcium Carbonate/ Glycine (Tums) 500 mg PRN AFTMEALHC PRN 07/06/19 17:45 08/31/19 10:25 DC Calcium Chloride 1000 mg/Sodium Chloride 110 ml @ 220 mls/hr 1X ONCE 07/05/19 22:30 07/05/19 22:59 DC 07/05/19 22:11 220 MLS/HR Calcium Chloride 3000 mg/Sodium Chloride 1,030 ml @ 50 mls/hr [id number] 07/07/19 08:00 3/21/20 15:23 DC 07/09/19 02:17 50 MLS/HR Calcium Gluconate (Calcium Gluconate) 2,000 mg 1X ONCE 07/07/19 02:15 07/07/19 02:16 DC 07/07/19 02:19 2,000 MG Calcium Gluconate 1000 mg/Sodium Chloride 110 ml @ 220 mls/hr 1X ONCE 07/06/19 03:30 07/06/19 03:59 DC 07/06/19 03:21 220 MLS/HR Calcium Gluconate 2000 mg/Sodium Chloride 120 ml @ 220 mls/hr 1X ONCE 07/06/19 07:30 07/06/19 08:02 DC 07/06/19 09:05 220 MLS/HR Cefepime HCl (Maxipime) 2 gm Q12HR 07/13/19 09:00 07/27/19 09:58 DC 07/26/19 20:56 2 GM Cellulose (Surgicel Fibrillar 1x2) 1 each STK-MED ONCE 07/25/19 11:00 07/25/19 11:01 DC Cellulose (Surgicel Hemostat 2x14) 1 each STK-MED ONCE 08/15/19 10:58 08/15/19 10:59 DC Cellulose (Surgicel Hemostat 4x8) 1 each STK-MED ONCE 08/15/19 10:58 08/15/19 10:59 DC Chlorhexidine Gluconate (Peridex) 15 ml BID 10/01/19 09:00 10/01/19 07:58 DC Ciprofloxacin/ Dextrose 200 ml @ 200 mls/hr Q12HR 10/06/19 21:00 10/13/19 08:56 DC 10/13/19 08:27 200 MLS/HR Cyclobenzaprine HCl (Flexeril) 10 mg PRN Q6HRS PRN 08/18/19 10:45 Daptomycin 410 mg/ Sodium Chloride 50 ml @ 100 mls/hr Q24H 09/25/19 14:00 09/28/19 08:30 DC 09/27/19 13:33 100 MLS/HR Daptomycin 430 mg/ Sodium Chloride 50 ml @ 100 mls/hr Q24H 08/13/19 13:00 08/18/19 20:58 DC 08/18/19 13:00 100 MLS/HR Daptomycin 450 mg/ Sodium Chloride 50 ml @ 100 mls/hr Q24H 09/04/19 09:00 09/08/19 08:30 DC 09/07/19 09:25 100 MLS/HR Daptomycin 485 mg/ Sodium Chloride 50 ml @ 100 mls/hr Q24H 08/22/19 11:00 08/30/19 07:44 DC 08/29/19 13:10 100 MLS/HR Daptomycin 500 mg/ Sodium Chloride 50 ml @ 100 mls/hr Q24H 10/16/19 19:00 10/18/19 21:48 100 MLS/HR Desflurane (Suprane) 90 ml STK-MED ONCE 10/18/19 10:18 10/18/19 10:19 DC Dexamethasone Sodium Phosphate (Decadron) 4 mg STK-MED ONCE 08/15/19 10:56 08/15/19 10:57 DC Dexmedetomidine HCl 400 mcg/ Sodium Chloride 100 ml @ 0 mls/hr CONT PRN 07/21/19 08:15 09/17/19 18:31 DC 09/17/19 12:57 8 MLS/HR Dextrose (Dextrose 50%-Water Syringe) 12.5 gm PRN Q15MIN PRN 07/04/19 09:30 Digoxin (Lanoxin) 125 mcg 1X ONCE 07/07/19 18:00 07/07/19 18:01 DC 07/07/19 17:10 125 MCG Diphenhydramine HCl (Benadryl) 25 mg 1X PRN PRN 08/12/19 15:45 08/13/19 15:44 DC Duloxetine HCl (Cymbalta) 30 mg DAILY 08/28/19 14:00 08/31/19 10:25 DC 08/29/19 09:48 30 MG Enoxaparin Sodium (Lovenox 100mg Syringe) 100 mg Q12HR 08/09/19 21:00 UNV Enoxaparin Sodium (Lovenox 40mg Syringe) 40 mg Q24H 10/19/19 08:00 Ephedrine Sulfate (ePHEDrine PF IN SALINE SYRINGE) 50 mg STK-MED ONCE 10/18/19 14:45 10/18/19 14:45 DC Etomidate (Amidate) 8 mg 1X ONCE 07/11/19 08:30 07/11/19 08:31 DC 07/11/19 08:33 8 MG Fentanyl (Duragesic 50mcg/ Hr Patch) 1 patch Q72H 09/22/19 21:00 10/01/19 12:00 DC 09/22/19 21:22 1 PATCH Fentanyl Citrate (Fentanyl 2ml Vial) 100 mcg STK-MED ONCE 10/18/19 07:44 10/18/19 07:44 DC Fentanyl Citrate (Fentanyl 5ml Vial) 250 mcg 1X ONCE 08/26/19 09:15 08/26/19 09:16 DC 08/26/19 09:30 50 MCG Flumazenil (Romazicon) 0.5 mg STK-MED ONCE 09/25/19 14:48 09/25/19 14:48 DC Fluoxetine HCl (PROzac) 20 mg QHS 09/22/19 21:00 10/15/19 21:52 20 MG Furosemide (Lasix) 40 mg 1X ONCE 10/12/19 15:30 10/12/19 15:33 DC 10/12/19 16:27 40 MG Haloperidol Lactate (Haldol Inj) 3 mg 1X ONCE 08/22/19 14:30 08/22/19 14:31 DC 08/22/19 14:37 3 MG Heparin Sodium (Porcine) (Hep Lock Adult) 500 unit STK-MED ONCE 07/26/19 09:29 07/26/19 09:30 DC Heparin Sodium (Porcine) (Heparin Sodium) 5,000 unit Q12HR 08/15/19 21:00 08/25/19 09:59 DC 08/24/19 20:57 5,000 UNIT Heparin Sodium (Porcine) 1000 unit/Sodium Chloride 1,001 ml @ 1,001 mls/hr 1X ONCE 10/18/19 06:00 10/18/19 06:59 DC Hydromorphone HCl (Dilaudid Standard DEPUTY CHIEF MAGISTRATE) 12 mg STK-MED ONCE 08/19/19 15:50 08/30/19 11:24 DC Hydromorphone HCl (Dilaudid) 1 mg PRN Q4HRS PRN 08/22/19 19:00 09/05/19 17:10 DC 09/05/19 06:25 1 MG Info (CONTRAST GIVEN -- Rx MONITORING) 1 each PRN DAILY PRN 07/18/19 11:45 07/20/19 11:44 DC Info (Icu Electrolyte Protocol) 1 ea CONT PRN PRN 07/17/19 13:15 Info (PHARMACY MONITORING -- do not chart) 1 each PRN DAILY PRN 08/12/19 15:45 09/13/19 14:14 DC Info (Tpn Per Pharmacy) 1 each PRN DAILY PRN 07/06/19 12:30 UNV Insulin Human Lispro (HumaLOG) 0-9 UNITS Q6HRS 07/04/19 09:30 10/19/19 06:10 5 UNITS Insulin Human Regular (HumuLIN R VIAL) 5 unit 1X ONCE 07/05/19 22:30 07/05/19 22:31 DC 07/05/19 22:14 5 UNIT Iohexol (Omnipaque 240 Mg/ml) 30 ml 1X ONCE 07/18/19 11:30 07/18/19 11:33 DC 07/18/19 11:30 30 ML Iohexol (Omnipaque 300 Mg/ml) 50 ml STK-MED ONCE 10/18/19 08:35 10/18/19 08:35 DC 10/18/19 13:30 10 ML Iohexol (Omnipaque 350 Mg/ml) 90 ml 1X ONCE 07/04/19 03:30 07/04/19 03:31 DC 07/04/19 03:25 90 ML Ketorolac Tromethamine (Toradol 30mg Vial) 30 mg 1X ONCE 07/04/19 03:00 07/04/19 03:01 DC 07/04/19 02:54 30 MG Lidocaine HCl (Buffered Lidocaine 1%) 3 ml 1X ONCE 10/03/19 13:00 10/03/19 13:01 DC 10/03/19 13:11 12 ML Lidocaine HCl (Glydo (Lidocaine) Jelly) 1 ramu 1X ONCE 07/08/19 14:30 07/08/19 14:31 DC 07/08/19 16:38 1 RAMU Lidocaine HCl (Lidocaine 1% 20ml Vial) 20 ml 1X ONCE 09/25/19 15:00 09/25/19 15:01 DC 09/25/19 15:30 20 ML Lidocaine HCl (Lidocaine Pf 2% Vial) 5 ml STK-MED ONCE 10/18/19 07:44 10/18/19 07:44 DC Lidocaine HCl (Xylocaine-Mpf 1% 2ml Vial) 2 ml PRN 1X PRN 08/15/19 07:00 08/16/19 06:59 DC Linezolid/Dextrose 300 ml @ 300 mls/hr Q12HR 09/04/19 09:00 09/07/19 08:11 DC 09/06/19 21:08 300 MLS/HR Lorazepam (Ativan Inj) 0.25 mg PRN Q4HRS PRN 09/21/19 07:30 10/15/19 13:37 0.25 MG Magnesium Sulfate 50 ml @ 25 mls/hr 1X ONCE 10/18/19 16:30 10/18/19 18:29 DC 10/18/19 17:02 25 MLS/HR Meropenem 1 gm/ Sodium Chloride 100 ml @ 200 mls/hr Q12HR 09/25/19 21:00 10/13/19 08:56 DC 10/13/19 08:27 200 MLS/HR Meropenem 500 mg/ Sodium Chloride 50 ml @ 100 mls/hr Q6HRS 10/16/19 18:00 10/19/19 05:59 100 MLS/HR Methylprednisolone Sodium Succinate (SOLU-Medrol 125MG VIAL) 125 mg 1X ONCE 10/01/19 06:15 10/01/19 06:16 DC 10/01/19 06:26 125 MG Metoclopramide HCl (Reglan Vial) 10 mg PRN Q3HRS PRN 08/27/19 16:45 09/01/19 04:25 10 MG Metoprolol Tartrate (Lopressor Vial) 5 mg PRN Q6HRS PRN 09/28/19 09:00 10/06/19 10:14 5 MG Metronidazole 100 ml @ 100 mls/hr Q8HRS 08/02/19 10:00 08/09/19 08:10 DC 08/09/19 06:04 100 MLS/HR Micafungin Sodium 100 mg/Dextrose 100 ml @ 100 mls/hr Q24H 10/18/19 08:30 10/18/19 08:21 100 MLS/HR Midazolam HCl (Versed) 2 mg 1X ONCE 09/25/19 15:00 09/25/19 15:01 DC 09/25/19 15:28 1 MG Midazolam HCl 100 mg/Sodium Chloride 100 ml @ 1 mls/hr CONT PRN 10/18/19 14:45 10/18/19 21:49 10 MLS/HR Midazolam HCl 50 mg/Sodium Chloride 50 ml @ 0 mls/hr CONT PRN 07/11/19 08:15 07/16/19 15:59 DC 07/14/19 22:39 7 MLS/HR Morphine Sulfate (Morphine Sulfate) 1 mg PRN Q1HR PRN 10/18/19 14:45 Multi-Ingred Cream/Lotion/Oil/ Oint (Artificial Tears Eye Ointment) 1 ramu PRN Q1HR PRN 07/13/19 17:30 09/21/19 14:39 DC 08/01/19 08:19 1 RAMU Naloxone HCl (Narcan) 0.4 mg PRN Q2MIN PRN 10/18/19 14:45 Norepinephrine Bitartrate 8 mg/ Dextrose 258 ml @ 13.332 mls/ hr CONT PRN 09/25/19 06:30 10/18/19 15:41 93.325 MLS/HR Ondansetron HCl (Zofran) 4 mg STK-MED ONCE 10/18/19 13:33 10/18/19 13:33 DC Pantoprazole Sodium (PROTONIX VIAL for IV PUSH) 40 mg DAILYAC 07/04/19 11:30 10/18/19 07:45 40 MG Phenylephrine HCl (Brayden-Synephrine Inj) 10 mg STK-MED ONCE 10/18/19 13:33 10/18/19 13:33 DC Phenylephrine HCl (PHENYLEPHRINE in 0.9% NACL PF) 1 mg STK-MED ONCE 10/18/19 14:44 10/18/19 14:45 DC Piperacillin Sod/ Tazobactam Sod 3.375 gm/Sodium Chloride 50 ml @ 100 mls/hr Q6HRS 09/14/19 12:00 09/22/19 07:26 DC 09/22/19 06:10 100 MLS/HR Piperacillin Sod/ Tazobactam Sod 4.5 gm/Sodium Chloride 100 ml @ 200 mls/hr 1X ONCE 07/04/19 06:00 07/04/19 06:29 DC 07/04/19 05:44 200 MLS/HR Potassium Chloride 110 meq/ Magnesium Sulfate 20 meq/ Multivitamins 10 ml/Chromium/ Copper/Manganese/ Seleni/Zn 1 ml/ Insulin Human Regular 15 unit/ Total Parenteral Nutrition/Amino Acids/Dextrose/ Fat Emulsion Intravenous 1,800 ml @ 75 mls/hr TPN CONT 09/11/19 22:00 09/12/19 21:59 DC 09/11/19 22:48 75 MLS/HR Potassium Chloride 15 meq/ Bicarbonate Dialysis Soln w/ out KCl 5,007.5 ml @ 1,000 mls/ hr Q5H1M 07/17/19 20:00 07/21/19 13:08 DC 07/20/19 18:14 1,000 MLS/HR Potassium Chloride 20 meq/ Bicarbonate Dialysis Soln w/ out KCl 5,010 ml @ 1,000 mls/hr Q5H1M 07/13/19 16:00 07/17/19 19:59 DC 07/17/19 14:54 1,000 MLS/HR Potassium Chloride 40 meq/ Potassium Acetate 60 meq/Magnesium Sulfate 10 meq/ Multivitamins 10 ml/Chromium/ Copper/Manganese/ Seleni/Zn 1 ml/ Insulin Human Regular 20 unit/ Total Parenteral Nutrition/Amino Acids/Dextrose/ Fat Emulsion Intravenous 1,800 ml @ 75 mls/hr TPN CONT 09/22/19 22:00 09/23/19 21:59 DC 09/23/19 00:03 75 MLS/HR Potassium Chloride 70 meq/ Magnesium Sulfate 20 meq/ Multivitamins 10 ml/Chromium/ Copper/Manganese/ Seleni/Zn 1 ml/ Insulin Human Regular 15 unit/ Total Parenteral Nutrition/Amino Acids/Dextrose/ Fat Emulsion Intravenous 1,800 ml @ 75 mls/hr TPN CONT 09/16/19 22:00 09/17/19 21:59 DC 09/16/19 23:13 75 MLS/HR Potassium Chloride 75 meq/ Magnesium Sulfate 15 meq/ Multivitamins 10 ml/Chromium/ Copper/Manganese/ Seleni/Zn 0.5 ml/ Insulin Human Regular 15 unit/ Total Parenteral Nutrition/Amino Acids/Dextrose/ Fat Emulsion Intravenous 1,920 ml @ 80 mls/hr TPN CONT 08/27/19 22:00 08/28/19 21:59 DC 08/27/19 22:41 80 MLS/HR Potassium Chloride 75 meq/ Magnesium Sulfate 15 meq/Calcium Gluconate 8 meq/ Multivitamins 10 ml/Chromium/ Copper/Manganese/ Seleni/Zn 0.5 ml/ Insulin Human Regular 15 unit/ Total Parenteral Nutrition/Amino Acids/Dextrose/ Fat Emulsion Intravenous 1,920 ml @ 80 mls/hr TPN CONT 08/25/19 22:00 08/26/19 21:59 DC 08/25/19 22:28 80 MLS/HR Potassium Chloride 75 meq/ Magnesium Sulfate 15 meq/Calcium Gluconate 8 meq/ Multivitamins 10 ml/Chromium/ Copper/Manganese/ Seleni/Zn 0.5 ml/ Insulin Human Regular 20 unit/ Total Parenteral Nutrition/Amino Acids/Dextrose/ Fat Emulsion Intravenous 1,920 ml @ 80 mls/hr TPN CONT 08/24/19 22:00 08/25/19 21:59 DC 08/24/19 22:00 80 MLS/HR Potassium Chloride 75 meq/ Magnesium Sulfate 15 meq/Calcium Gluconate 8 meq/ Multivitamins 10 ml/Chromium/ Copper/Manganese/ Seleni/Zn 0.5 ml/ Insulin Human Regular 25 unit/ Total Parenteral Nutrition/Amino Acids/Dextrose/ Fat Emulsion Intravenous 1,920 ml @ 80 mls/hr TPN CONT 08/22/19 22:00 08/23/19 21:59 DC 08/22/19 23:08 80 MLS/HR Potassium Chloride 75 meq/ Magnesium Sulfate 20 meq/Calcium Gluconate 10 meq/ Multivitamins 10 ml/Chromium/ Copper/Manganese/ Seleni/Zn 0.5 ml/ Insulin Human Regular 25 unit/ Total Parenteral Nutrition/Amino Acids/Dextrose/ Fat Emulsion Intravenous 1,920 ml @ 80 mls/hr TPN CONT 08/21/19 22:00 08/22/19 21:59 DC 08/21/19 22:04 80 MLS/HR Potassium Chloride 75 meq/ Magnesium Sulfate 20 meq/Calcium Gluconate 10 meq/ Multivitamins 10 ml/Chromium/ Copper/Manganese/ Seleni/Zn 0.5 ml/ Insulin Human Regular 30 unit/ Total Parenteral Nutrition/Amino Acids/Dextrose/ Fat Emulsion Intravenous 1,920 ml @ 80 mls/hr TPN CONT 08/20/19 22:00 08/21/19 22:00 DC 08/20/19 21:51 80 MLS/HR Potassium Chloride 80 meq/ Magnesium Sulfate 20 meq/ Multivitamins 10 ml/Chromium/ Copper/Manganese/ Seleni/Zn 0.5 ml/ Insulin Human Regular 15 unit/ Total Parenteral Nutrition/Amino Acids/Dextrose/ Fat Emulsion Intravenous 1,920 ml @ 80 mls/hr TPN CONT 08/30/19 22:00 08/31/19 21:59 DC 08/30/19 21:40 80 MLS/HR Potassium Chloride 80 meq/ Magnesium Sulfate 20 meq/ Multivitamins 10 ml/Chromium/ Copper/Manganese/ Seleni/Zn 1 ml/ Insulin Human Regular 15 unit/ Total Parenteral Nutrition/Amino Acids/Dextrose/ Fat Emulsion Intravenous 1,800 ml @ 75 mls/hr TPN CONT 09/18/19 22:00 09/19/19 21:59 DC 09/18/19 21:54 75 MLS/HR Potassium Chloride 90 meq/ Magnesium Sulfate 20 meq/ Multivitamins 10 ml/Chromium/ Copper/Manganese/ Seleni/Zn 1 ml/ Insulin Human Regular 15 unit/ Total Parenteral Nutrition/Amino Acids/Dextrose/ Fat Emulsion Intravenous 1,800 ml @ 75 mls/hr TPN CONT 09/07/19 22:00 09/08/19 21:59 DC 09/07/19 22:28 75 MLS/HR Potassium Chloride 90 meq/ Magnesium Sulfate 20 meq/ Multivitamins 10 ml/Chromium/ Copper/Manganese/ Seleni/Zn 1 ml/ Insulin Human Regular 20 unit/ Total Parenteral Nutrition/Amino Acids/Dextrose/ Fat Emulsion Intravenous 1,800 ml @ 75 mls/hr TPN CONT 09/21/19 22:00 09/22/19 21:59 DC 09/21/19 23:13 75 MLS/HR Potassium Chloride/Water 100 ml @ 100 mls/hr Q1H 10/05/19 08:00 10/05/19 09:59 DC 10/05/19 09:12 100 MLS/HR Potassium Phosphate 20 mmol/ Sodium Chloride 106.6667 ml @ 51.667 m... 1X ONCE 07/13/19 13:00 07/13/19 15:03 DC 07/13/19 12:51 51.667 MLS/HR Potassium Acetate 30 meq/Magnesium Sulfate 14 meq/ Multivitamins 10 ml/Chromium/ Copper/Manganese/ Seleni/Zn 1 ml/ Insulin Human Regular 15 unit/ Sodium Chloride 20 meq/Potassium Chloride 30 meq/ Total Parenteral Nutrition/Amino Acids/Dextrose/ Fat Emulsion Intravenous 1,920 ml @ 80 mls/hr TPN CONT 10/11/19 22:00 10/12/19 21:59 DC 10/11/19 21:46 80 MLS/HR Potassium Acetate 30 meq/Magnesium Sulfate 20 meq/ Calcium Gluconate 10 meq/ Multivitamins 10 ml/Chromium/ Copper/Manganese/ Seleni/Zn 0.5 ml/ Insulin Human Regular 30 unit/ Potassium Chloride 30 meq/ Total Parenteral Nutrition/Amino Acids/Dextrose/ Fat Emulsion Intravenous 1,920 ml @ 80 mls/hr TPN CONT 08/19/19 22:00 08/20/19 21:59 DC 08/19/19 22:34 80 MLS/HR Potassium Acetate 40 meq/Magnesium Sulfate 10 meq/ Multivitamins 10 ml/Chromium/ Copper/Manganese/ Seleni/Zn 1 ml/ Insulin Human Regular 20 unit/ Total Parenteral Nutrition/Amino Acids/Dextrose/ Fat Emulsion Intravenous 1,920 ml @ 80 mls/hr TPN CONT 10/04/19 22:00 10/05/19 21:59 DC 10/04/19 21:32 80 MLS/HR Potassium Acetate 40 meq/Magnesium Sulfate 5 meq/ Multivitamins 10 ml/Chromium/ Copper/Manganese/ Seleni/Zn 1 ml/ Insulin Human Regular 30 unit/ Total Parenteral Nutrition/Amino Acids/Dextrose/ Fat Emulsion Intravenous 1,920 ml @ 80 mls/hr TPN CONT 10/03/19 22:00 10/04/19 19:34 DC 10/03/19 21:54 80 MLS/HR Potassium Acetate 55 meq/Magnesium Sulfate 20 meq/ Calcium Gluconate 10 meq/ Multivitamins 10 ml/Chromium/ Copper/Manganese/ Seleni/Zn 0.5 ml/ Insulin Human Regular 30 unit/ Total Parenteral Nutrition/Amino Acids/Dextrose/ Fat Emulsion Intravenous 1,920 ml @ 80 mls/hr TPN CONT 08/18/19 22:00 08/19/19 21:59 DC 08/19/19 01:00 80 MLS/HR Potassium Acetate 55 meq/Magnesium Sulfate 20 meq/ Calcium Gluconate 10 meq/ Multivitamins 10 ml/Chromium/ Copper/Manganese/ Seleni/Zn 0.5 ml/ Insulin Human Regular 35 unit/ Total Parenteral Nutrition/Amino Acids/Dextrose/ Fat Emulsion Intravenous 1,920 ml @ 80 mls/hr TPN CONT 08/16/19 22:00 08/17/19 21:59 DC 08/16/19 22:02 80 MLS/HR Potassium Acetate 60 meq/Magnesium Sulfate 10 meq/ Multivitamins 10 ml/Chromium/ Copper/Manganese/ Seleni/Zn 1 ml/ Insulin Human Regular 20 unit/ Total Parenteral Nutrition/Amino Acids/Dextrose/ Fat Emulsion Intravenous 1,920 ml @ 80 mls/hr TPN CONT 10/05/19 22:00 10/06/19 21:59 DC 10/05/19 21:55 80 MLS/HR Potassium Acetate 60 meq/Magnesium Sulfate 14 meq/ Multivitamins 10 ml/Chromium/ Copper/Manganese/ Seleni/Zn 1 ml/ Insulin Human Regular 15 unit/ Sodium Chloride 20 meq/Total Parenteral Nutrition/Amino Acids/Dextrose/ Fat Emulsion Intravenous 1,920 ml @ 80 mls/hr TPN CONT 10/10/19 22:00 10/11/19 21:59 DC 10/10/19 21:54 80 MLS/HR Potassium Acetate 60 meq/Magnesium Sulfate 14 meq/ Multivitamins 10 ml/Chromium/ Copper/Manganese/ Seleni/Zn 1 ml/ Insulin Human Regular 15 unit/ Total Parenteral Nutrition/Amino Acids/Dextrose/ Fat Emulsion Intravenous 1,920 ml @ 80 mls/hr TPN CONT 10/09/19 22:00 10/10/19 21:59 DC 10/09/19 22:22 80 MLS/HR Potassium Acetate 60 meq/Magnesium Sulfate 14 meq/ Multivitamins 10 ml/Chromium/ Copper/Manganese/ Seleni/Zn 1 ml/ Insulin Human Regular 20 unit/ Total Parenteral Nutrition/Amino Acids/Dextrose/ Fat Emulsion Intravenous 1,920 ml @ 80 mls/hr TPN CONT 10/06/19 22:00 10/07/19 21:59 DC 10/06/19 22:26 80 MLS/HR Potassium Acetate 60 meq/Magnesium Sulfate 5 meq/ Multivitamins 10 ml/Chromium/ Copper/Manganese/ Seleni/Zn 1 ml/ Insulin Human Regular 30 unit/ Total Parenteral Nutrition/Amino Acids/Dextrose/ Fat Emulsion Intravenous 1,920 ml @ 80 mls/hr TPN CONT 09/24/19 22:00 09/25/19 21:59 DC 09/24/19 21:54 80 MLS/HR Potassium Acetate 65 meq/Magnesium Sulfate 20 meq/ Calcium Gluconate 10 meq/ Multivitamins 10 ml/Chromium/ Copper/Manganese/ Seleni/Zn 0.5 ml/ Insulin Human Regular 30 unit/ Total Parenteral Nutrition/Amino Acids/Dextrose/ Fat Emulsion Intravenous 1,920 ml @ 80 mls/hr TPN CONT 08/17/19 22:00 08/18/19 21:59 DC 08/17/19 22:22 80 MLS/HR Potassium Acetate 80 meq/Magnesium Sulfate 5 meq/ Multivitamins 10 ml/Chromium/ Copper/Manganese/ Seleni/Zn 1 ml/ Insulin Human Regular 20 unit/ Total Parenteral Nutrition/Amino Acids/Dextrose/ Fat Emulsion Intravenous 1,920 ml @ 80 mls/hr TPN CONT 09/23/19 22:00 09/24/19 21:59 DC 09/23/19 21:59 80 MLS/HR Prochlorperazine Edisylate (Compazine) 5 mg PACU PRN PRN 08/15/19 07:00 08/16/19 06:59 DC Propofol (Diprivan) 200 mg STK-MED ONCE 10/18/19 07:44 10/18/19 07:44 DC Ringer's Solution 1,000 ml @ 30 mls/hr Q24H 08/15/19 07:00 08/15/19 18:59 DC Rocuronium [place] (Zemuron) 100 mg STK-MED ONCE 10/18/19 07:44 10/18/19 07:44 DC Saliva Substitute (Biotene Moisturizing Mouth) 2 spray PRN Q15MIN PRN 09/08/19 11:00 Sevoflurane (Ultane) 60 ml STK-MED ONCE 08/15/19 12:26 08/15/19 12:27 DC Sodium Bicarbonate 150 meq/Dextrose 1,150 ml @ 75 mls/hr 1X ONCE 10/18/19 16:30 10/19/19 07:49 DC 10/18/19 20:02 75 MLS/HR Sodium Bicarbonate 50 meq/Sodium Chloride 1,050 ml @ 75 mls/hr Q14H 07/06/19 07:30 07/11/19 10:28 DC 07/10/19 21:10 75 MLS/HR Sodium Acetate 50 meq/Potassium Acetate 55 meq/ Magnesium Sulfate 20 meq/Calcium Gluconate 10 meq/ Multivitamins 10 ml/Chromium/ Copper/Manganese/ Seleni/Zn 0.5 ml/ Insulin Human Regular 35 unit/ Total Parenteral Nutrition/Amino Acids/Dextrose/ Fat Emulsion Intravenous 1,800 ml @ 75 mls/hr TPN CONT 08/13/19 22:00 08/14/19 21:59 DC 08/13/19 22:03 75 MLS/HR Sodium Bicarbonate (Sodium Bicarb Adult 8.4% Syr) 100 meq 1X ONCE 10/18/19 16:30 10/18/19 16:31 DC 10/18/19 17:07 100 MEQ Sodium Chloride 1,000 ml @ 1,000 mls/hr 1X ONCE 10/18/19 15:45 10/18/19 16:44 DC 10/18/19 15:42 1,000 MLS/HR Sodium Chloride (Normal Saline Flush) 3 ml QSHIFT PRN 10/18/19 14:45 Sodium Chloride 80 meq/Potassium Chloride 30 meq/ Potassium Acetate 30 meq/Magnesium Sulfate 14 meq/ Multivitamins 10 ml/Chromium/ Copper/Manganese/ Seleni/Zn 1 ml/ Insulin Human Regular 15 unit/ Total Parenteral Nutrition/Amino Acids/Dextrose/ Fat Emulsion Intravenous 1,920 ml @ 80 mls/hr TPN CONT 10/18/19 22:00 10/19/19 21:59 10/19/19 01:22 80 MLS/HR Sodium Chloride 90 meq/Calcium Gluconate 10 meq/ Multivitamins 10 ml/Chromium/ Copper/Manganese/ Seleni/Zn 0.5 ml/ Total Parenteral Nutrition/Amino Acids/Dextrose/ Fat Emulsion Intravenous 1,512 ml @ 63 mls/hr TPN CONT 07/06/19 22:00 07/07/19 21:59 DC 07/06/19 22:06 63 MLS/HR Sodium Chloride 90 meq/Calcium Gluconate 10 meq/ Multivitamins 10 ml/Chromium/ Copper/Manganese/ Seleni/Zn 1 ml/ Total Parenteral Nutrition/Amino Acids/Dextrose/ Fat Emulsion Intravenous 55.005 ml @ 2.292 mls/hr TPN CONT 07/06/19 22:00 07/06/19 12:33 DC Sodium Chloride 90 meq/Magnesium Sulfate 10 meq/ Calcium Gluconate 20 meq/ Multivitamins 10 ml/Chromium/ Copper/Manganese/ Seleni/Zn 0.5 ml/ Total Parenteral Nutrition/Amino Acids/Dextrose/ Fat Emulsion Intravenous 1,512 ml @ 63 mls/hr TPN CONT 07/07/19 22:00 07/08/19 21:59 DC 07/07/19 22:25 63 MLS/HR Sodium Chloride 90 meq/Magnesium Sulfate 12 meq/ Calcium Gluconate 15 meq/ Multivitamins 10 ml/Chromium/ Copper/Manganese/ Seleni/Zn 0.5 ml/ Insulin Human Regular 25 unit/ Total Parenteral Nutrition/Amino Acids/Dextrose/ Fat Emulsion Intravenous 1,400 ml @ 58.333 mls/ hr TPN CONT 07/27/19 22:00 07/28/19 21:59 DC 07/27/19 21:41 58.333 MLS/HR Sodium Chloride 90 meq/Potassium Chloride 15 meq/ Magnesium Sulfate 12 meq/Calcium Gluconate 15 meq/ Multivitamins 10 ml/Chromium/ Copper/Manganese/ Seleni/Zn 0.5 ml/ Insulin Human Regular 25 unit/ Total Parenteral Nutrition/Amino Acids/Dextrose/ Fat Emulsion Intravenous 1,400 ml @ 58.333 mls/ hr TPN CONT 07/26/19 22:00 07/27/19 21:59 DC 07/26/19 22:13 58.333 MLS/HR Sodium Chloride 90 meq/Potassium Chloride 15 meq/ Potassium Phosphate 10 mmol/ Magnesium Sulfate 8 meq/Calcium Gluconate 15 meq/ Multivitamins 10 ml/Chromium/ Copper/Manganese/ Seleni/Zn 0.5 ml/ Insulin Human Regular 25 unit/ Total Parenteral Nutrition/Amino Acids/Dextrose/ Fat Emulsion Intravenous 1,400 ml @ 58.333 mls/ hr TPN CONT 07/24/19 22:00 07/25/19 21:59 DC 07/24/19 21:20 58.333 MLS/HR Sodium Chloride 90 meq/Potassium Chloride 15 meq/ Potassium Phosphate 10 mmol/ Magnesium Sulfate 10 meq/Calcium Gluconate 20 meq/ Multivitamins 10 ml/Chromium/ Copper/Manganese/ Seleni/Zn 0.5 ml/ Total Parenteral Nutrition/Amino Acids/Dextrose/ Fat Emulsion Intravenous 1,400 ml @ 58.333 mls/ hr TPN CONT 07/11/19 22:00 07/12/19 21:59 DC 07/11/19 21:42 58.333 MLS/HR Sodium Chloride 90 meq/Potassium Chloride 15 meq/ Potassium Phosphate 10 mmol/ Magnesium Sulfate 12 meq/Calcium Gluconate 15 meq/ Multivitamins 10 ml/Chromium/ Copper/Manganese/ Seleni/Zn 0.5 ml/ Insulin Human Regular 25 unit/ Total Parenteral Nutrition/Amino Acids/Dextrose/ Fat Emulsion Intravenous 1,400 ml @ 58.333 mls/ hr TPN CONT 07/25/19 22:00 07/26/19 21:59 DC 07/25/19 22:24 58.333 MLS/HR Sodium Chloride 90 meq/Potassium Chloride 15 meq/ Potassium Phosphate 15 mmol/ Magnesium Sulfate 10 meq/Calcium Gluconate 15 meq/ Multivitamins 10 ml/Chromium/ Copper/Manganese/ Seleni/Zn 0.5 ml/ Total Parenteral Nutrition/Amino Acids/Dextrose/ Fat Emulsion Intravenous 1,400 ml @ 58.333 mls/ hr TPN CONT 07/12/19 22:00 07/13/19 21:59 DC 07/12/19 22:17 58.333 MLS/HR Sodium Chloride 90 meq/Potassium Chloride 15 meq/ Potassium Phosphate 15 mmol/ Magnesium Sulfate 10 meq/Calcium Gluconate 20 meq/ Multivitamins 10 ml/Chromium/ Copper/Manganese/ Seleni/Zn 0.5 ml/ Total Parenteral Nutrition/Amino Acids/Dextrose/ Fat Emulsion Intravenous 1,200 ml @ 50 mls/hr TPN CONT 07/10/19 22:00 07/10/19 14:17 DC Sodium Chloride 90 meq/Potassium Chloride 15 meq/ Potassium Phosphate 18 mmol/ Magnesium Sulfate 8 meq/Calcium Gluconate 15 meq/ Multivitamins 10 ml/Chromium/ Copper/Manganese/ Seleni/Zn 0.5 ml/ Insulin Human Regular 10 unit/ Total Parenteral Nutrition/Amino Acids/Dextrose/ Fat Emulsion Intravenous 1,400 ml @ 58.333 mls/ hr TPN CONT 07/15/19 22:00 07/16/19 21:59 DC 07/15/19 21:43 58.333 MLS/HR Sodium Chloride 90 meq/Potassium Chloride 15 meq/ Potassium Phosphate 18 mmol/ Magnesium Sulfate 8 meq/Calcium Gluconate 15 meq/ Multivitamins 10 ml/Chromium/ Copper/Manganese/ Seleni/Zn 0.5 ml/ Insulin Human Regular 15 unit/ Total Parenteral Nutrition/Amino Acids/Dextrose/ Fat Emulsion Intravenous 1,400 ml @ 58.333 mls/ hr TPN CONT 07/18/19 22:00 07/19/19 21:59 DC 07/18/19 21:47 58.333 MLS/HR Sodium Chloride 90 meq/Potassium Chloride 15 meq/ Potassium Phosphate 18 mmol/ Magnesium Sulfate 8 meq/Calcium Gluconate 15 meq/ Multivitamins 10 ml/Chromium/ Copper/Manganese/ Seleni/Zn 0.5 ml/ Insulin Human Regular 20 unit/ Total Parenteral Nutrition/Amino Acids/Dextrose/ Fat Emulsion Intravenous 1,400 ml @ 58.333 mls/ hr TPN CONT 07/21/19 22:00 07/22/19 21:59 DC 07/21/19 22:45 58.333 MLS/HR Sodium Chloride 90 meq/Potassium Chloride 15 meq/ Potassium Phosphate 18 mmol/ Magnesium Sulfate 8 meq/Calcium Gluconate 15 meq/ Multivitamins 10 ml/Chromium/ Copper/Manganese/ Seleni/Zn 0.5 ml/ Total Parenteral Nutrition/Amino Acids/Dextrose/ Fat Emulsion Intravenous 1,400 ml @ 58.333 mls/ hr TPN CONT 07/14/19 22:00 07/15/19 21:59 DC 07/14/19 22:00 58.333 MLS/HR Sodium Chloride 90 meq/Potassium Phosphate 15 mmol/ Magnesium Sulfate 12 meq/Calcium Gluconate 15 meq/ Multivitamins 10 ml/Chromium/ Copper/Manganese/ Seleni/Zn 0.5 ml/ Insulin Human Regular 30 unit/ Total Parenteral Nutrition/Amino Acids/Dextrose/ Fat Emulsion Intravenous 1,400 ml @ 58.333 mls/ hr TPN CONT 07/29/19 22:00 07/30/19 21:59 DC 07/29/19 21:49 58.333 MLS/HR Sodium Chloride 90 meq/Potassium Phosphate 15 mmol/ Magnesium Sulfate 12 meq/Calcium Gluconate 15 meq/ Multivitamins 10 ml/Chromium/ Copper/Manganese/ Seleni/Zn 0.5 ml/ Insulin Human Regular 40 unit/ Total Parenteral Nutrition/Amino Acids/Dextrose/ Fat Emulsion Intravenous 1,400 ml @ 58.333 mls/ hr TPN CONT 07/30/19 22:00 07/31/19 21:59 DC 07/30/19 21:21 58.333 MLS/HR Sodium Chloride 90 meq/Potassium Phosphate 19 mmol/ Magnesium Sulfate 12 meq/Calcium Gluconate 15 meq/ Multivitamins 10 ml/Chromium/ Copper/Manganese/ Seleni/Zn 0.5 ml/ Insulin Human Regular 40 unit/ Total Parenteral Nutrition/Amino Acids/Dextrose/ Fat Emulsion Intravenous 1,400 ml @ 58.333 mls/ hr TPN CONT 07/31/19 22:00 08/01/19 21:59 DC 07/31/19 21:54 58.333 MLS/HR Sodium Chloride 90 meq/Potassium Phosphate 5 mmol/ Magnesium Sulfate 12 meq/Calcium Gluconate 15 meq/ Multivitamins 10 ml/Chromium/ Copper/Manganese/ Seleni/Zn 0.5 ml/ Insulin Human Regular 30 unit/ Total Parenteral Nutrition/Amino Acids/Dextrose/ Fat Emulsion Intravenous 1,400 ml @ 58.333 mls/ hr TPN CONT 07/28/19 22:00 07/29/19 21:59 DC 07/28/19 22:08 58.333 MLS/HR Sodium Chloride 100 meq/Potassium Chloride 40 meq/ Magnesium Sulfate 15 meq/Calcium Gluconate 15 meq/ Multivitamins 10 ml/Chromium/ Copper/Manganese/ Seleni/Zn 0.5 ml/ Insulin Human Regular 35 unit/ Total Parenteral Nutrition/Amino Acids/Dextrose/ Fat Emulsion Intravenous 1,400 ml @ 58.333 mls/ hr TPN CONT 08/07/19 22:00 08/08/19 21:59 DC 08/07/19 22:46 58.333 MLS/HR Sodium Chloride 100 meq/Potassium Chloride 40 meq/ Magnesium Sulfate 20 meq/Calcium Gluconate 10 meq/ Multivitamins 10 ml/Chromium/ Copper/Manganese/ Seleni/Zn 0.5 ml/ Insulin Human Regular 35 unit/ Total Parenteral Nutrition/Amino Acids/Dextrose/ Fat Emulsion Intravenous 1,400 ml @ 58.333 mls/ hr TPN CONT 08/11/19 22:00 08/12/19 21:59 DC 08/12/19 00:06 58.333 MLS/HR Sodium Chloride 100 meq/Potassium Chloride 40 meq/ Magnesium Sulfate 20 meq/Calcium Gluconate 15 meq/ Multivitamins 10 ml/Chromium/ Copper/Manganese/ Seleni/Zn 0.5 ml/ Insulin Human Regular 35 unit/ Total Parenteral Nutrition/Amino Acids/Dextrose/ Fat Emulsion Intravenous 1,400 ml @ 58.333 mls/ hr TPN CONT 08/10/19 22:00 08/11/19 21:59 DC 08/10/19 22:27 58.333 MLS/HR Sodium Chloride 100 meq/Potassium Phosphate 10 mmol/ Magnesium Sulfate 12 meq/Calcium Gluconate 15 meq/ Multivitamins 10 ml/Chromium/ Copper/Manganese/ Seleni/Zn 0.5 ml/ Insulin Human Regular 35 unit/ Potassium Chloride 20 meq/ Total Parenteral Nutrition/Amino Acids/Dextrose/ Fat Emulsion Intravenous 1,400 ml @ 58.333 mls/ hr TPN CONT 08/04/19 22:00 08/05/19 21:59 DC 08/04/19 22:10 58.333 MLS/HR Sodium Chloride 100 meq/Potassium Phosphate 19 mmol/ Magnesium Sulfate 12 meq/Calcium Gluconate 15 meq/ Multivitamins 10 ml/Chromium/ Copper/Manganese/ Seleni/Zn 0.5 ml/ Insulin Human Regular 40 unit/ Potassium Chloride 20 meq/ Total Parenteral Nutrition/Amino Acids/Dextrose/ Fat Emulsion Intravenous 1,400 ml @ 58.333 mls/ hr TPN CONT 08/03/19 22:00 08/04/19 21:59 DC 08/03/19 21:20 58.333 MLS/HR Sodium Chloride 100 meq/Potassium Phosphate 5 mmol/ Magnesium Sulfate 12 meq/Calcium Gluconate 15 meq/ Multivitamins 10 ml/Chromium/ Copper/Manganese/ Seleni/Zn 0.5 ml/ Insulin Human Regular 35 unit/ Potassium Chloride 20 meq/ Total Parenteral Nutrition/Amino Acids/Dextrose/ Fat Emulsion Intravenous 1,400 ml @ 58.333 mls/ hr TPN CONT 08/05/19 22:00 08/06/19 21:59 DC 08/05/19 22:59 58.333 MLS/HR Succinylcholine Chloride (Anectine) 120 mg 1X ONCE 07/11/19 08:30 07/11/19 08:31 DC 07/11/19 08:34 120 MG Vasopressin (Vasostrict) 20 unit STK-MED ONCE 10/18/19 12:23 10/18/19 12:23 DC Vasopressin 20 unit/Dextrose 101 ml @ 12 mls/hr CONT PRN 10/18/19 15:30 10/18/19 21:49 12 MLS/HR Vecuronium [place] (Norcuron Bolus) 6 mg PRN Q6HRS PRN 08/25/19 19:15 08/25/19 19:35 DC Labs: Lab Laboratory Tests Test 10/18/19 09:52 10/18/19 15:30 10/18/19 16:10 10/18/19 21:30 Glucose (Fingerstick) 105 mg/dL (70-99) White Blood Count 49.3 x10^3/uL (4.0-11.0) 21.5 x10^3/uL (4.0-11.0) Red Blood Count 2.36 x10^6/uL (3.50-5.40) 2.77 x10^6/uL (3.50-5.40) Hemoglobin 6.7 g/dL (12.0-15.5) 8.2 g/dL (12.0-15.5) Hematocrit 20.9 % (36.0-47.0) 23.1 % (36.0-47.0) Mean Corpuscular Volume 89 fL (79-100) 84 fL (79-100) Mean Corpuscular Hemoglobin 28 pg (25-35) 30 pg (25-35) Mean Corpuscular Hemoglobin Concent 32 g/dL (31-37) 36 g/dL (31-37) Red Cell Distribution Width 16.7 % (11.5-14.5) 14.8 % (11.5-14.5) Platelet Count 335 x10^3/uL (140-400) 211 x10^3/uL (140-400) Sodium Level 138 mmol/L (136-145) Potassium Level 4.3 mmol/L (3.5-5.1) Chloride Level 107 mmol/L (98-107) Carbon Dioxide Level 15 mmol/L (21-32) Anion Gap 16 (6-14) Blood Urea Nitrogen 11 mg/dL (7-20) Creatinine 0.7 mg/dL (0.6-1.0) Estimated GFR (Cockcroft-Gault) 88.9 Glucose Level 169 mg/dL (70-99) Calcium Level 7.5 mg/dL (8.5-10.1) Magnesium Level 1.4 mg/dL (1.8-2.4) O2 Saturation 99 % (92-99) Arterial Blood pH 7.25 (7.35-7.45) Arterial Blood pCO2 at Patient Temp 32 mmHg (35-46) Arterial Blood pO2 at Patient Temp 374 mmHg (75-108) Arterial Blood HCO3 13 mmol/L (21-28) Arterial Blood Base Excess -13 mmol/L (-3-3) FiO2 80%+5 Test 10/19/19 06:00 10/19/19 06:06 White Blood Count 18.9 x10^3/uL (4.0-11.0) Red Blood Count 2.55 x10^6/uL (3.50-5.40) Hemoglobin 7.5 g/dL (12.0-15.5) Hematocrit 21.6 % (36.0-47.0) Mean Corpuscular Volume 85 fL (79-100) Mean Corpuscular Hemoglobin 29 pg (25-35) Mean Corpuscular Hemoglobin Concent 35 g/dL (31-37) Red Cell Distribution Width 14.8 % (11.5-14.5) Platelet Count 253 x10^3/uL (140-400) Neutrophils (%) (Auto) 85 % (31-73) Lymphocytes (%) (Auto) 8 % (24-48) Monocytes (%) (Auto) 6 % (0-9) Eosinophils (%) (Auto) 0 % (0-3) Basophils (%) (Auto) 0 % (0-3) Neutrophils # (Auto) 16.1 x10^3/uL (1.8-7.7) Lymphocytes # (Auto) 1.5 x10^3/uL (1.0-4.8) Monocytes # (Auto) 1.2 x10^3/uL (0.0-1.1) Eosinophils # (Auto) 0.0 x10^3/uL (0.0-0.7) Basophils # (Auto) 0.1 x10^3/uL (0.0-0.2) Sodium Level 138 mmol/L (136-145) Potassium Level 3.9 mmol/L (3.5-5.1) Chloride Level 104 mmol/L (98-107) Carbon Dioxide Level 26 mmol/L (21-32) Anion Gap 8 (6-14) Blood Urea Nitrogen 19 mg/dL (7-20) Creatinine 0.8 mg/dL (0.6-1.0) Estimated GFR (Cockcroft-Gault) 76.2 Glucose Level 264 mg/dL (70-99) Calcium Level 9.2 mg/dL (8.5-10.1) Phosphorus Level 3.5 mg/dL (2.6-4.7) Magnesium Level 2.1 mg/dL (1.8-2.4) Glucose (Fingerstick) 249 mg/dL (70-99) Micro NEG ALEXANDRA 56 PSEUDOMONAS AERUGINOSA ANTIBIOTIC RESULT INTERPRETATION AMIKACIN <=16 S AZTREONAM >16 R CEFTAZIDIME >16 R CIPROFLOXACIN <=0.25 S CEFEPIME 16 I GENTAMICIN <=2 S LEVOFLOXACIN <=0.5 S CONTINUED ON NEXT PAGE RUN DATE: 09/28/19 [facility] *LIVE* PAGE 2 RUN TIME: 1120 Specimen Inquiry SPEC: [id number] PATIENT: SCOTT CUELLAR [id number] (Continued) Procedure Result ANTIMICROBIAL SUSCEPTIBILITY Preliminary (continued) MEROPENEM <=1 S PIPERACILLIN/TAZOBACTAM 64 S TOBRAMYCIN <=2 S Unless otherwise specified, Testing Performed by: [address] [address] For Inquires, the Physician may contact the Microbiology department at [phone] Objective: Assessment: Patient with prolonged hospitalization more than 3 months Multiple medical problems Multiple surgical procedures Pt underwent Exploratory laparotomy, lysis of adhesions, subtotal cholecystectomy with cholangiogram, gastrojejunostomy tube placement, pancreatic necrosectomy October 17 Leucocytosis Leukomoid reaction likely postoperative Fever intermittently source likely GI Acute pancreatitis with persistent necrosis CT a/p 07/27 Increased ascites. 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 Sequela of pancreatitis with extensive pseudocysts again demonstrated, the right-sided collections are slightly larger since the prior exam, the left-sided collections are stable. 09/24 fluid cult PSAE (MDRO),yeast; treated Cholelithiasis with thickening of the gallbladder wall. Leucocytosis JUANA,Hyperkalemia, Metabolic acidosis off dialysis Acute hypoxic resp failure ,bilateral pleural effusion and atelectasis hypocalcemia Prediabetes HTN s/p trach Pleural effusion status post CTS left side Abdominal fluid culture MDRO Pseudomonas, yeast Plan: Plan of Care cont dapto , merrem ,micafungin Monitor labs/cults wound care /drain management as directed Supportive care Contact isolation for CRE/MDRO Critically ill Discussed with nursing staff YUNIOR JONES MD Oct 19, 2019 08:08
[2019-10-19 08:33] LABS: BASE EXCESS ABG 0 mmol/L (-3-3); HCO3 ABG 21 mmol/L (21-28); PCO2 ABG 22 mmHg (35-46); PO2 ABG 120 mmHg (75-108); SAT O2 ABG 98 % (92-99)
--- NOTE | 2019-10-19 08:34 | PDOC ---
PULMONARY PROGRESS NOTES Subjective Laying in bed, in no respiratory distress Patient intubated on 07/10 , s/p trach 07/24, remains on TS, episode of AMS and tachycardia yesterday Vitals Vital Signs Date Time Temp Pulse Resp B/P (MAP) Pulse Ox O2 Delivery O2 Flow Rate FiO2 10/19/19 08:12 100 Ventilator 10/19/19 07:00 104 20 112/66 (81) 10/19/19 04:00 99.8 99.8 10/19/19 02:59 8.0 ROS: No Nausea, No Chest Pain, No Abdominal Pain General: Alert, No acute distress HEENT: Other (nc at perrl nose clear neck trach site ok no lab no thyromegaly) Lungs: Other (diminshed in bases) Cardiovascular: S1, S2 Abdomen: Soft, Non-tender, Other (multiple KAYLIN drains ) Extremities: Other (+1 BLE edema) Skin: Warm, Dry Labs Laboratory Tests Test 10/17/19 11:51 10/18/19 00:24 10/18/19 05:25 10/18/19 05:34 Glucose (Fingerstick) 125 mg/dL (70-99) 128 mg/dL (70-99) 128 mg/dL (70-99) White Blood Count 14.8 x10^3/uL (4.0-11.0) Red Blood Count 2.95 x10^6/uL (3.50-5.40) Hemoglobin 8.1 g/dL (12.0-15.5) Hematocrit 25.1 % (36.0-47.0) Mean Corpuscular Volume 85 fL (79-100) Mean Corpuscular Hemoglobin 27 pg (25-35) Mean Corpuscular Hemoglobin Concent 32 g/dL (31-37) Red Cell Distribution Width 18.2 % (11.5-14.5) Platelet Count 452 x10^3/uL (140-400) Neutrophils (%) (Auto) 80 % (31-73) Lymphocytes (%) (Auto) 10 % (24-48) Monocytes (%) (Auto) 8 % (0-9) Eosinophils (%) (Auto) 1 % (0-3) Basophils (%) (Auto) 0 % (0-3) Neutrophils # (Auto) 11.9 x10^3/uL (1.8-7.7) Lymphocytes # (Auto) 1.4 x10^3/uL (1.0-4.8) Monocytes # (Auto) 1.2 x10^3/uL (0.0-1.1) Eosinophils # (Auto) 0.2 x10^3/uL (0.0-0.7) Basophils # (Auto) 0.0 x10^3/uL (0.0-0.2) Sodium Level 136 mmol/L (136-145) Potassium Level 4.4 mmol/L (3.5-5.1) Chloride Level 101 mmol/L (98-107) Carbon Dioxide Level 34 mmol/L (21-32) Anion Gap 1 (6-14) Blood Urea Nitrogen 14 mg/dL (7-20) Creatinine 0.5 mg/dL (0.6-1.0) Estimated GFR (Cockcroft-Gault) 131.1 BUN/Creatinine Ratio 28 (6-20) Glucose Level 136 mg/dL (70-99) Calcium Level 11.1 mg/dL (8.5-10.1) Phosphorus Level 3.9 mg/dL (2.6-4.7) Magnesium Level 2.1 mg/dL (1.8-2.4) Total Bilirubin 0.4 mg/dL (0.2-1.0) Aspartate Amino Transf (AST/SGOT) 18 U/L (15-37) Alanine Aminotransferase (ALT/SGPT) 12 U/L (14-59) Alkaline Phosphatase 118 U/L (46-116) Total Protein 4.7 g/dL (6.4-8.2) Albumin 1.1 g/dL (3.4-5.0) Albumin/Globulin Ratio 0.3 (1.0-1.7) Triglycerides Level 155 mg/dL (0-150) Test 10/18/19 09:52 10/18/19 15:30 10/18/19 16:10 10/18/19 21:30 Glucose (Fingerstick) 105 mg/dL (70-99) White Blood Count 49.3 x10^3/uL (4.0-11.0) 21.5 x10^3/uL (4.0-11.0) Red Blood Count 2.36 x10^6/uL (3.50-5.40) 2.77 x10^6/uL (3.50-5.40) Hemoglobin 6.7 g/dL (12.0-15.5) 8.2 g/dL (12.0-15.5) Hematocrit 20.9 % (36.0-47.0) 23.1 % (36.0-47.0) Mean Corpuscular Volume 89 fL (79-100) 84 fL (79-100) Mean Corpuscular Hemoglobin 28 pg (25-35) 30 pg (25-35) Mean Corpuscular Hemoglobin Concent 32 g/dL (31-37) 36 g/dL (31-37) Red Cell Distribution Width 16.7 % (11.5-14.5) 14.8 % (11.5-14.5) Platelet Count 335 x10^3/uL (140-400) 211 x10^3/uL (140-400) Sodium Level 138 mmol/L (136-145) Potassium Level 4.3 mmol/L (3.5-5.1) Chloride Level 107 mmol/L (98-107) Carbon Dioxide Level 15 mmol/L (21-32) Anion Gap 16 (6-14) Blood Urea Nitrogen 11 mg/dL (7-20) Creatinine 0.7 mg/dL (0.6-1.0) Estimated GFR (Cockcroft-Gault) 88.9 Glucose Level 169 mg/dL (70-99) Calcium Level 7.5 mg/dL (8.5-10.1) Magnesium Level 1.4 mg/dL (1.8-2.4) O2 Saturation 99 % (92-99) Arterial Blood pH 7.25 (7.35-7.45) Arterial Blood pCO2 at Patient Temp 32 mmHg (35-46) Arterial Blood pO2 at Patient Temp 374 mmHg (75-108) Arterial Blood HCO3 13 mmol/L (21-28) Arterial Blood Base Excess -13 mmol/L (-3-3) FiO2 80%+5 Test 10/19/19 06:00 10/19/19 06:06 White Blood Count 18.9 x10^3/uL (4.0-11.0) Red Blood Count 2.55 x10^6/uL (3.50-5.40) Hemoglobin 7.5 g/dL (12.0-15.5) Hematocrit 21.6 % (36.0-47.0) Mean Corpuscular Volume 85 fL (79-100) Mean Corpuscular Hemoglobin 29 pg (25-35) Mean Corpuscular Hemoglobin Concent 35 g/dL (31-37) Red Cell Distribution Width 14.8 % (11.5-14.5) Platelet Count 253 x10^3/uL (140-400) Neutrophils (%) (Auto) 85 % (31-73) Lymphocytes (%) (Auto) 8 % (24-48) Monocytes (%) (Auto) 6 % (0-9) Eosinophils (%) (Auto) 0 % (0-3) Basophils (%) (Auto) 0 % (0-3) Neutrophils # (Auto) 16.1 x10^3/uL (1.8-7.7) Lymphocytes # (Auto) 1.5 x10^3/uL (1.0-4.8) Monocytes # (Auto) 1.2 x10^3/uL (0.0-1.1) Eosinophils # (Auto) 0.0 x10^3/uL (0.0-0.7) Basophils # (Auto) 0.1 x10^3/uL (0.0-0.2) Sodium Level 138 mmol/L (136-145) Potassium Level 3.9 mmol/L (3.5-5.1) Chloride Level 104 mmol/L (98-107) Carbon Dioxide Level 26 mmol/L (21-32) Anion Gap 8 (6-14) Blood Urea Nitrogen 19 mg/dL (7-20) Creatinine 0.8 mg/dL (0.6-1.0) Estimated GFR (Cockcroft-Gault) 76.2 Glucose Level 264 mg/dL (70-99) Calcium Level 9.2 mg/dL (8.5-10.1) Phosphorus Level 3.5 mg/dL (2.6-4.7) Magnesium Level 2.1 mg/dL (1.8-2.4) Glucose (Fingerstick) 249 mg/dL (70-99) Laboratory Tests Test 10/18/19 09:52 10/18/19 15:30 10/18/19 16:10 10/18/19 21:30 Glucose (Fingerstick) 105 mg/dL (70-99) White Blood Count 49.3 x10^3/uL (4.0-11.0) 21.5 x10^3/uL (4.0-11.0) Red Blood Count 2.36 x10^6/uL (3.50-5.40) 2.77 x10^6/uL (3.50-5.40) Hemoglobin 6.7 g/dL (12.0-15.5) 8.2 g/dL (12.0-15.5) Hematocrit 20.9 % (36.0-47.0) 23.1 % (36.0-47.0) Mean Corpuscular Volume 89 fL (79-100) 84 fL (79-100) Mean Corpuscular Hemoglobin 28 pg (25-35) 30 pg (25-35) Mean Corpuscular Hemoglobin Concent 32 g/dL (31-37) 36 g/dL (31-37) Red Cell Distribution Width 16.7 % (11.5-14.5) 14.8 % (11.5-14.5) Platelet Count 335 x10^3/uL (140-400) 211 x10^3/uL (140-400) Sodium Level 138 mmol/L (136-145) Potassium Level 4.3 mmol/L (3.5-5.1) Chloride Level 107 mmol/L (98-107) Carbon Dioxide Level 15 mmol/L (21-32) Anion Gap 16 (6-14) Blood Urea Nitrogen 11 mg/dL (7-20) Creatinine 0.7 mg/dL (0.6-1.0) Estimated GFR (Cockcroft-Gault) 88.9 Glucose Level 169 mg/dL (70-99) Calcium Level 7.5 mg/dL (8.5-10.1) Magnesium Level 1.4 mg/dL (1.8-2.4) O2 Saturation 99 % (92-99) Arterial Blood pH 7.25 (7.35-7.45) Arterial Blood pCO2 at Patient Temp 32 mmHg (35-46) Arterial Blood pO2 at Patient Temp 374 mmHg (75-108) Arterial Blood HCO3 13 mmol/L (21-28) Arterial Blood Base Excess -13 mmol/L (-3-3) FiO2 80%+5 Test 10/19/19 06:00 7/1/20 06:06 White Blood Count 18.9 x10^3/uL (4.0-11.0) Red Blood Count 2.55 x10^6/uL (3.50-5.40) Hemoglobin 7.5 g/dL (12.0-15.5) Hematocrit 21.6 % (36.0-47.0) Mean Corpuscular Volume 85 fL (79-100) Mean Corpuscular Hemoglobin 29 pg (25-35) Mean Corpuscular Hemoglobin Concent 35 g/dL (31-37) Red Cell Distribution Width 14.8 % (11.5-14.5) Platelet Count 253 x10^3/uL (140-400) Neutrophils (%) (Auto) 85 % (31-73) Lymphocytes (%) (Auto) 8 % (24-48) Monocytes (%) (Auto) 6 % (0-9) Eosinophils (%) (Auto) 0 % (0-3) Basophils (%) (Auto) 0 % (0-3) Neutrophils # (Auto) 16.1 x10^3/uL (1.8-7.7) Lymphocytes # (Auto) 1.5 x10^3/uL (1.0-4.8) Monocytes # (Auto) 1.2 x10^3/uL (0.0-1.1) Eosinophils # (Auto) 0.0 x10^3/uL (0.0-0.7) Basophils # (Auto) 0.1 x10^3/uL (0.0-0.2) Sodium Level 138 mmol/L (136-145) Potassium Level 3.9 mmol/L (3.5-5.1) Chloride Level 104 mmol/L (98-107) Carbon Dioxide Level 26 mmol/L (21-32) Anion Gap 8 (6-14) Blood Urea Nitrogen 19 mg/dL (7-20) Creatinine 0.8 mg/dL (0.6-1.0) Estimated GFR (Cockcroft-Gault) 76.2 Glucose Level 264 mg/dL (70-99) Calcium Level 9.2 mg/dL (8.5-10.1) Phosphorus Level 3.5 mg/dL (2.6-4.7) Magnesium Level 2.1 mg/dL (1.8-2.4) Glucose (Fingerstick) 249 mg/dL (70-99) Medications Active Scripts Medications Dose Route/Sig Max Daily Dose Days Date Category Bisoprolol Fumarate 5 Mg Tablet 10 Mg PO DAILY 07/04/19 Reported Comments CXR 10/16/19 IMPRESSION: No significant interval change compared to 10/13/2019. ct abdomen /pelvis 09/23 1. Removal of the percutaneous pigtail drainage catheters since the prior exam. Sequela of pancreatitis with extensive pseudocysts again demonstrated, the right-sided collections are slightly larger since the prior exam, the left-sided collections are stable. See above. 2. Moderate to large left pleural effusion with atelectasis and collapse of most of the left lower lobe, stable. Small right pleural effusion is stable. 3. Gallstone. ct chest 10/02 reviewed GRAM NEG COCCOBACILLI:MANY SQUAMOUS EPI CELL:RARE PMN (WBCs):FEW Unless otherwise specified, Testing Performed by: [address] [address] For Inquires, the Physician may contact the Microbiology department at [phone] RESPIRATORY CULTURE Final Final MANY GRAM NEGATIVE RODS on 10/03/19 at 1103 FINAL ID= [[email or web address] [email or web address]] MICRO CHARGES PSEUDOMONAS AERUGINOSA ANTIMICROBIAL SUSCEPTIBILITY Final Comment NEG ALEXANDRA 56 PSEUDOMONAS AERUGINOSA ANTIBIOTIC RESULT INTERPRETATION AMIKACIN <=16 S AZTREONAM <=4 S CEFTAZIDIME <=1 S CIPROFLOXACIN <=0.25 S CEFEPIME <=2 S CEFTAZIDIME/AVIBACTAM <=4 S GENTAMICIN <=2 S LEVOFLOXACIN <=0.5 S Impression . IMPRESSION: 1. Acute hypoxemic respiratory failure secondary to ARDS status post trach, developed anemia /, blood drainage from RLQ abdomen drain site, and surrounding firmness / developed septic shock / from abdomen source, required levo 6/7 s/p 3 new drains /7 with brown color drainage, on/off vent , on TS now 2. Gallstone pancreatitis, now with ongoing bleeding from prior drain. Anemic. s/p Tx multiple units over several days 3. septic shock/sepsis, recurrent 09/24, source abdomen. , off levo now, 4. Acute kidney injury-, Off HD--renal function decling. suspect JUANA on CKD due to hypotension , improved now 5. Acute gallstone pancreatitis. 6. Hypoalbuminemia. 7. Moderate persistent effusions, s/p left thora 08/29, reaccumulation of left effusion. O2 requirement not changed. 8. Fever- ,hypotension. suspect recurrent sepsis/ likely pancreatic source. Per ID, per surgery-- 9. Chronic anemia-- ongoing / s/p PRBC 10. Covid 19 testing negative 11. Moderate to large ascites-S/P paracentisis 12.S/P paracentisis with 4 liters removed on 08/03/19 13. S/P IR drain placement on 08/26/2019, removal, re inserted 09/24 14. Depression/Anxiety 15. Increase effusion, ? loculated/ s/p chest tube.. drainage slowing down. 200 cc /24 hr 10/17 Exploratory laparotomy, lysis of adhesions, subtotal cholecystectomy with cholangiogram, gastrojejunostomy tube placement, pancreatic necrosectomy Plan . Multiple drains in place OR note Continue assist control ventilation Antibiotics per ID Pressors for hypotension IV fluids Follow labs. CC time 30 minutes HARMEET BEE MD Oct 19, 2019 08:33
[2019-10-19 08:39] LABS: FIO2 ABG 40
[2019-10-19] MEDS: MIDAZOLAM HCL 100 MG in IV NORMAL SALINE 100ML 100 ML IV PRN ×2 (09:23→16:09)
[2019-10-19] MEDS: VASOPRESSIN 20 UNIT in IV DEXTROSE 5% 100ML 100 ML IV PRN ×2 (09:24→16:09)
[2019-10-19] MEDS: PANTOPRAZOLE IV PUSH 40 MG VIAL. IVP SCH (09:25)
[2019-10-19] MEDS: MICAFUNGIN 100 MG in IV DEXTROSE 5% 100ML 100 ML IV SCH (09:26)
--- NOTE | 2019-10-19 10:40 | NUR ---
IP: Pt back on vent and due to CR-PSA in sputum, pt to be maintained in contact precautions.
--- NOTE | 2019-10-19 11:37 | PDOC ---
Objective: Objective: D/w nurse - on pressors. S/p transfusions. Vital Signs: Vital Signs Date Time Temp Pulse Resp B/P (MAP) Pulse Ox O2 Delivery O2 Flow Rate FiO2 10/19/19 11:09 12 99 Ventilator 10/19/19 11:00 112 90/48 (62) 10/19/19 09:25 40.0 10/19/19 04:00 99.8 99.8 Labs: Laboratory Tests Test 10/18/19 15:30 10/18/19 16:10 10/18/19 21:30 10/19/19 06:00 White Blood Count 49.3 x10^3/uL 21.5 x10^3/uL 18.9 x10^3/uL Red Blood Count 2.36 x10^6/uL 2.77 x10^6/uL 2.55 x10^6/uL Hemoglobin 6.7 g/dL 8.2 g/dL 7.5 g/dL Hematocrit 20.9 % 23.1 % 21.6 % Mean Corpuscular Volume 89 fL 84 fL 85 fL Mean Corpuscular Hemoglobin 28 pg 30 pg 29 pg Mean Corpuscular Hemoglobin Concent 32 g/dL 36 g/dL 35 g/dL Red Cell Distribution Width 16.7 % 14.8 % 14.8 % Platelet Count 335 x10^3/uL 211 x10^3/uL 253 x10^3/uL Sodium Level 138 mmol/L 138 mmol/L Potassium Level 4.3 mmol/L 3.9 mmol/L Chloride Level 107 mmol/L 104 mmol/L Carbon Dioxide Level 15 mmol/L 26 mmol/L Anion Gap 16 8 Blood Urea Nitrogen 11 mg/dL 19 mg/dL Creatinine 0.7 mg/dL 0.8 mg/dL Estimated GFR (Cockcroft-Gault) 88.9 76.2 Glucose Level 169 mg/dL 264 mg/dL Calcium Level 7.5 mg/dL 9.2 mg/dL Magnesium Level 1.4 mg/dL 2.1 mg/dL O2 Saturation 99 % Arterial Blood pH 7.25 Arterial Blood pCO2 at Patient Temp 32 mmHg Arterial Blood pO2 at Patient Temp 374 mmHg Arterial Blood HCO3 13 mmol/L Arterial Blood Base Excess -13 mmol/L FiO2 80%+5 Neutrophils (%) (Auto) 85 % Lymphocytes (%) (Auto) 8 % Monocytes (%) (Auto) 6 % Eosinophils (%) (Auto) 0 % Basophils (%) (Auto) 0 % Neutrophils # (Auto) 16.1 x10^3/uL Lymphocytes # (Auto) 1.5 x10^3/uL Monocytes # (Auto) 1.2 x10^3/uL Eosinophils # (Auto) 0.0 x10^3/uL Basophils # (Auto) 0.1 x10^3/uL Phosphorus Level 3.5 mg/dL Test 10/19/19 06:06 10/19/19 08:30 Glucose (Fingerstick) 249 mg/dL O2 Saturation 98 % Arterial Blood pH 7.60 Arterial Blood pCO2 at Patient Temp 22 mmHg Arterial Blood pO2 at Patient Temp 120 mmHg Arterial Blood HCO3 21 mmol/L Arterial Blood Base Excess 0 mmol/L FiO2 40 Imaging: KUB IMPRESSION: Postoperative changes as described above. Cholangiogram IMPRESSION: 1. No evidence of retained stones. PE: LUNGS: trach/vent HEART: tachycardic ABD: multiple drains NEURO/PSYCH: sedated A/P: Severe gallstone pancreatitis s/p expl laparotomy, SAURABH, subtotal cholecystectomy, gastrojejunostomy placement, pancreatic necrosectomy -- Continue support. Justicifation of Admission Dx: Justifications for Admission: Justification of Admission Dx: Yes CYNDEE FALCON Oct 19, 2019 11:37
[2019-10-19 12:03] LABS: BASE EXCESS ABG -3 mmol/L (-3-3); HCO3 ABG 22 mmol/L (21-28); PCO2 ABG 38 mmHg (35-46); PO2 ABG 111 mmHg (75-108); SAT O2 ABG 97 % (92-99)
[2019-10-19 12:06] LABS: FIO2 ABG 40
--- NOTE | 2019-10-19 12:59 | NUR ---
SS following up with discharge planning. SS reviewed pt chart and discussed with pt RN. Pt had surgery, 10/18/2019. Pt currently on vent with NG tube and J tube. Pt has chest tube, KAYLIN drains x3, Mook drains x2. Pt on TPN and IV Micafungin, Daptomycin, and Meropenem. Pt received two units of blood after surgery. SS will continue to follow for discharge planning.
--- NOTE | 2019-10-19 13:34 | PDOC ---
PROGRESS NOTES Chief Complaint Chief Complaint 48yo F w/ PMHx HTN, prediabetes who presented the emergency room complaints of abdominal pain. Patient described off and on 3 days. She states is constant, described as a squeezing sensation in a band-like distribution. + nausea, vomiting. She denies any fever or diarrhea. Patient denies any abdominal surgical procedures. She stateed is worse with movements, car ride. Pain initially was upper abdomen however now pretty much generalized. Last bowel movement was 07/03/2019. Nothing makes her pain better. Patient denies any shortness of breath. She does state the pain moves into her chest. Denies any headache or visual changes. Lipase 74296, AST 401, ALT 249, Bilirubin 1.4. CT abdomen confirms pancreatic inflammation, peripancreatic fluid and inflammatory changes around the pancreas consistent with pancreatitis. Cholelithiasis and 1.4cm uterine fibroid as well as possible left salpingitis. Admitted for further care Gallstone pancreatitis with necrosis. -CT A/P 09/23 showed multiple pseudocysts, slight larger on the right. s/p drains x , 09/24. + PSAE (MDRO-R Cefepime, Zosyn ALEXANDRA < 64) and yeast, -s/p drain 08/14. C. parapsilosis. s/p drain 08/23 + yeast & high amylase; s/p additional drain on 08/25. Drains removed. Ascites s/p paracentesis 08/02 & 08/23. C. parapsilosis JUANA. off HD. Impression and plan: Acute hypoxic Respiratory failure required mechanical ventilation Tracheostomy bilateral pleural effusions/pulm edema s/p Throacentesis on 10/03/2019 Severe Acute gallstone pancreatitis (not a surgical candidate at this time) with necrosis Acute kidney failure now requiring dialysis Gallstones (Calculus of gallbladder with acute cholecystitis without obstruction) HTN Intractable pain Intractable nausea Covid 19 negative. Acute on chronic anemia EEG: No seizure activityFever - better currently - intermittent could be from underlying pancreatitis blood cults 08/21 - neg so far ? Ileus with vomiting Abd distention - U/S and CT reviewed s/p 0.4 L of opaque, debris-containing ascites was removed 08/23 Acute pancreatitis with persistent necrosis Gallstone pancreatitis with necrosis. -CT A/P 09/23 showed multiple pseudocysts, slight larger on the right. s/p drains x 3, 09/24. + PSAE (MDRO-R Cefepime, Zosyn ALEXANDRA < 64) and yeast, -s/p drain 08/14. C. parapsilosis. s/p drain 08/23 + yeast & high amylase; s/p additional drain on 08/25. Drains removed. Ascites s/p paracentesis 08/02 & 08/23. C. parapsilosis JUANA. off HD. A large fluid collection in the pancreatic bed has slightly decreased in size, described below, the pancreas itself is difficult to visualize, which could be due to necrosis or obscuration of pancreatic parenchyma from the surrounding fluid collection.10/02 - 08/14 status post KAYLIN drain placement + C paropsilosis. s/p additional drains 08/25 Anemia - S/p PRBCs Cholelithiasis with thickening of the gallbladder wall. Leucocytosis improving JUANA, hyperkalemia, Metabolic acidosis off dialysis hypocalcemia Prediabetes HTN s/p trach ESRD on HD Hyperglycemia severe protein-caloric malnutrition Moderate to large left pleural effusion with atelectasis and collapse of most of the left lower lobe, stable Dispo - ICU, critically ill Poor prognosis History of Present Illness History of Present Illness 10/18, s/p surg BP better, labile, cont IV meds, IV nutrition s/p large surgery, pancreas removal, 10/17 fever overnight, blood cult, cont dapto and merrem ( 10/15) add micafungin Patient seen and examined ICU BED plan OR 10/17 for necrosectomy, cholecystectomy and feeding tube placement. [id number] prognosis Sputum from 09/30 - growing PSA - may be colonization I to Meropenem Continue meropenem, has MDRP PSAE September 24 from abd bleeding from Sx. site RLQ and firmness)stable oncology consulted Cholelithiasis. Mild thickened appearance of the gallbladder wall. sono 10/12 Mild right hydronephrosis.Fluid collection identified anterior to the pancreas. 10/14/2019 Patient having trouble with secretions this morning, no other complaints, discussed with surgical [facility]ER. Plans for OR on Thursday. No fever above 99.9 overnight, remains tachycardic, medications reviewed. 10/15/2019 Patient with thick secretions, no other acute events reported overnight. Patient seems to be quite anxious, I have tried to provide reassurance during my encounter regarding her upcoming surgical procedure. Patient seems to be quite anxious and seems to experience panic attacks when she first wakes up thinking that is the day of surgery. At the present time she seems to be medically optimized for planned surgery, discussed with nursing staff at bedside 10/17/2019 Patient seems to be hallucinating and having probably memories from her former life prior to this prolonged hospital stay which is 3 months plus in length. Immediate plans are for surgical intervention on Thursday which will consist of a Whipple procedure. At the present time the patient remains critically stable her prognosis is quite guarded at best. fever last night hallucinations co ntinues to have chest tube in multiple abdominal drains as well. All these are probable source of infection plan OR 10/17 for necrosectomy, cholecystectomy and feeding tube placement. 37 min cc time Date: Aug 15, 2019 Pre-Op Diagnosis: Necrotizing pancreatitis Post-Op Diagnosis: same Procedure Performed: laparoscopic exploration Surgeon: Renzo Servin Asst: Dr. Arturo Harris Anesthesia Type: GETA plus local Blood Loss: 50 Specimans Obtained: cultures, debris Findings: 1000 cc ascites suctioned off, cultures sent, diffuse debris, obliteration of surgical planes preventing any meaningful exploration 09/19/2019 Patient seen and examined in the ICU She appears extremely ill She is tachypneic at 35 respirations per minute and tachycardic at 132 bpm She is extremely encephalopathic and shaky She appears clammy Chart reviewed Discussed with RN Prognosis extremely guarded at best 09/18/2019 Patient still in ICU Resting with no apparent distress Chart reviewed 09/17/2019 Patient seen and examined in the ICU She is wiping her face with a cough Discussed with RN Chart reviewed We hope to get her out of the ICU later today if possible 09/16/2019 Patient seen and examined in the ICU once again She is back on NG suction On IV Zosyn Has IV TPN Sedated with Precedex but anxious still Appears somewhat clammy and pale Chart reviewed Discussed with RN She remains critically ill BRIEF OPERATIVE NOTE Pre-Op Diagnosis Pancreatitis with pseudocysts, suspected infection Post-Op Diagnosis same Procedure Performed CT abdominal Drains x 3 Surgeon Tesfaye Anesthesia Type: Conscious Sedation Findings 3 abdominal drains, 14F, with turbid pancreatic fluid and necrotic debris in each. Complications No immediate 08/26: Patient today somewhat restless and having bilious secretions from ET tube, imaging studies ordered, discussed with sec reporting consultant. Pretty poor prognosis, hopefully is not a fistula, poor surgical candidate. 08/27: Imaging with no acute events, she seems more stable today compared to yesterday. Encouraged as much activity as possible patient at high risk for severe depression. Vitals Vitals Vital Signs Date Time Temp Pulse Resp B/P (MAP) Pulse Ox O2 Delivery O2 Flow Rate FiO2 10/19/19 13:00 97 12 97/57 (70) 100 Ventilator 10/19/19 12:00 99.6 99.6 10/19/19 09:25 40.0 Physical Exam Physical Exam GENERAL: intubated/sedated HEENT: Anicteric, no thrush, NG tube in place NECK: Tracheostomy + LUNGS: Diminished aeration bases, CT on left HEART: S1, S2,regular ABDOMEN: Distention, bowel sounds hypoactive soft, grimaces to palpation,yoselin x2 3 KAYLIN drains, GT +, : Lind ( 09/24) EXTREMITIES: + edema BLE SKIN: no signs of gen rash LUE-PICC without signs of complications General: Alert, Oriented X3, Cooperative, No acute distress Heart: Regular rate (SR/ST), Other (distant heart sounds) Lungs: Other (diminshed in bases) Abdomen: Soft, No tenderness, Other (drains with pancreatic necrosis) Extremities: No cyanosis, Other (3+ bilateral LE pitting edema) Skin: No rashes, No significant lesion Labs LABS Laboratory Tests Test 10/18/19 15:30 10/18/19 16:10 10/18/19 21:30 10/19/19 06:00 White Blood Count 49.3 x10^3/uL (4.0-11.0) 21.5 x10^3/uL (4.0-11.0) 18.9 x10^3/uL (4.0-11.0) Red Blood Count 2.36 x10^6/uL (3.50-5.40) 2.77 x10^6/uL (3.50-5.40) 2.55 x10^6/uL (3.50-5.40) Hemoglobin 6.7 g/dL (12.0-15.5) 8.2 g/dL (12.0-15.5) 7.5 g/dL (12.0-15.5) Hematocrit 20.9 % (36.0-47.0) 23.1 % (36.0-47.0) 21.6 % (36.0-47.0) Mean Corpuscular Volume 89 fL (79-100) 84 fL (79-100) 85 fL (79-100) Mean Corpuscular Hemoglobin 28 pg (25-35) 30 pg (25-35) 29 pg (25-35) Mean Corpuscular Hemoglobin Concent 32 g/dL (31-37) 36 g/dL (31-37) 35 g/dL (31-37) Red Cell Distribution Width 16.7 % (11.5-14.5) 14.8 % (11.5-14.5) 14.8 % (11.5-14.5) Platelet Count 335 x10^3/uL (140-400) 211 x10^3/uL (140-400) 253 x10^3/uL (140-400) Sodium Level 138 mmol/L (136-145) 138 mmol/L (136-145) Potassium Level 4.3 mmol/L (3.5-5.1) 3.9 mmol/L (3.5-5.1) Chloride Level 107 mmol/L (98-107) 104 mmol/L (98-107) Carbon Dioxide Level 15 mmol/L (21-32) 26 mmol/L (21-32) Anion Gap 16 (6-14) 8 (6-14) Blood Urea Nitrogen 11 mg/dL (7-20) 19 mg/dL (7-20) Creatinine 0.7 mg/dL (0.6-1.0) 0.8 mg/dL (0.6-1.0) Estimated GFR (Cockcroft-Gault) 88.9 76.2 Glucose Level 169 mg/dL (70-99) 264 mg/dL (70-99) Calcium Level 7.5 mg/dL (8.5-10.1) 9.2 mg/dL (8.5-10.1) Magnesium Level 1.4 mg/dL (1.8-2.4) 2.1 mg/dL (1.8-2.4) O2 Saturation 99 % (92-99) Arterial Blood pH 7.25 (7.35-7.45) Arterial Blood pCO2 at Patient Temp 32 mmHg (35-46) Arterial Blood pO2 at Patient Temp 374 mmHg (75-108) Arterial Blood HCO3 13 mmol/L (21-28) Arterial Blood Base Excess -13 mmol/L (-3-3) FiO2 80%+5 Neutrophils (%) (Auto) 85 % (31-73) Lymphocytes (%) (Auto) 8 % (24-48) Monocytes (%) (Auto) 6 % (0-9) Eosinophils (%) (Auto) 0 % (0-3) Basophils (%) (Auto) 0 % (0-3) Neutrophils # (Auto) 16.1 x10^3/uL (1.8-7.7) Lymphocytes # (Auto) 1.5 x10^3/uL (1.0-4.8) Monocytes # (Auto) 1.2 x10^3/uL (0.0-1.1) Eosinophils # (Auto) 0.0 x10^3/uL (0.0-0.7) Basophils # (Auto) 0.1 x10^3/uL (0.0-0.2) Phosphorus Level 3.5 mg/dL (2.6-4.7) Test 10/19/19 06:06 10/19/19 08:30 10/19/19 11:55 Glucose (Fingerstick) 249 mg/dL (70-99) 235 mg/dL (70-99) O2 Saturation 98 % (92-99) 97 % (92-99) Arterial Blood pH 7.60 (7.35-7.45) 7.38 (7.35-7.45) Arterial Blood pCO2 at Patient Temp 22 mmHg (35-46) 38 mmHg (35-46) Arterial Blood pO2 at Patient Temp 120 mmHg (75-108) 111 mmHg (75-108) Arterial Blood HCO3 21 mmol/L (21-28) 22 mmol/L (21-28) Arterial Blood Base Excess 0 mmol/L (-3-3) -3 mmol/L (-3-3) FiO2 40 40 Assessment and Plan Assessmemt and Plan Problems Medical Problems: (1) Acute pancreatitis Status: Acute (2) Cholelithiasis Status: Acute Comment Review of Relevant I have reviewed the following items kolby (where applicable) has been applied. Labs Laboratory Tests Test 10/18/19 00:24 10/18/19 05:25 10/18/19 05:34 10/18/19 09:52 Glucose (Fingerstick) 128 mg/dL (70-99) 128 mg/dL (70-99) 105 mg/dL (70-99) White Blood Count 14.8 x10^3/uL (4.0-11.0) Red Blood Count 2.95 x10^6/uL (3.50-5.40) Hemoglobin 8.1 g/dL (12.0-15.5) Hematocrit 25.1 % (36.0-47.0) Mean Corpuscular Volume 85 fL (79-100) Mean Corpuscular Hemoglobin 27 pg (25-35) Mean Corpuscular Hemoglobin Concent 32 g/dL (31-37) Red Cell Distribution Width 18.2 % (11.5-14.5) Platelet Count 452 x10^3/uL (140-400) Neutrophils (%) (Auto) 80 % (31-73) Lymphocytes (%) (Auto) 10 % (24-48) Monocytes (%) (Auto) 8 % (0-9) Eosinophils (%) (Auto) 1 % (0-3) Basophils (%) (Auto) 0 % (0-3) Neutrophils # (Auto) 11.9 x10^3/uL (1.8-7.7) Lymphocytes # (Auto) 1.4 x10^3/uL (1.0-4.8) Monocytes # (Auto) 1.2 x10^3/uL (0.0-1.1) Eosinophils # (Auto) 0.2 x10^3/uL (0.0-0.7) Basophils # (Auto) 0.0 x10^3/uL (0.0-0.2) Sodium Level 136 mmol/L (136-145) Potassium Level 4.4 mmol/L (3.5-5.1) Chloride Level 101 mmol/L (98-107) Carbon Dioxide Level 34 mmol/L (21-32) Anion Gap 1 (6-14) Blood Urea Nitrogen 14 mg/dL (7-20) Creatinine 0.5 mg/dL (0.6-1.0) Estimated GFR (Cockcroft-Gault) 131.1 BUN/Creatinine Ratio 28 (6-20) Glucose Level 136 mg/dL (70-99) Calcium Level 11.1 mg/dL (8.5-10.1) Phosphorus Level 3.9 mg/dL (2.6-4.7) Magnesium Level 2.1 mg/dL (1.8-2.4) Total Bilirubin 0.4 mg/dL (0.2-1.0) Aspartate Amino Transf (AST/SGOT) 18 U/L (15-37) Alanine Aminotransferase (ALT/SGPT) 12 U/L (14-59) Alkaline Phosphatase 118 U/L (46-116) Total Protein 4.7 g/dL (6.4-8.2) Albumin 1.1 g/dL (3.4-5.0) Albumin/Globulin Ratio 0.3 (1.0-1.7) Triglycerides Level 155 mg/dL (0-150) Test 10/18/19 15:30 10/18/19 16:10 10/18/19 21:30 10/19/19 06:00 White Blood Count 49.3 x10^3/uL (4.0-11.0) 21.5 x10^3/uL (4.0-11.0) 18.9 x10^3/uL (4.0-11.0) Red Blood Count 2.36 x10^6/uL (3.50-5.40) 2.77 x10^6/uL (3.50-5.40) 2.55 x10^6/uL (3.50-5.40) Hemoglobin 6.7 g/dL (12.0-15.5) 8.2 g/dL (12.0-15.5) 7.5 g/dL (12.0-15.5) Hematocrit 20.9 % (36.0-47.0) 23.1 % (36.0-47.0) 21.6 % (36.0-47.0) Mean Corpuscular Volume 89 fL (79-100) 84 fL (79-100) 85 fL (79-100) Mean Corpuscular Hemoglobin 28 pg (25-35) 30 pg (25-35) 29 pg (25-35) Mean Corpuscular Hemoglobin Concent 32 g/dL (31-37) 36 g/dL (31-37) 35 g/dL (31-37) Red Cell Distribution Width 16.7 % (11.5-14.5) 14.8 % (11.5-14.5) 14.8 % (11.5-14.5) Platelet Count 335 x10^3/uL (140-400) 211 x10^3/uL (140-400) 253 x10^3/uL (140-400) Sodium Level 138 mmol/L (136-145) 138 mmol/L (136-145) Potassium Level 4.3 mmol/L (3.5-5.1) 3.9 mmol/L (3.5-5.1) Chloride Level 107 mmol/L (98-107) 104 mmol/L (98-107) Carbon Dioxide Level 15 mmol/L (21-32) 26 mmol/L (21-32) Anion Gap 16 (6-14) 8 (6-14) Blood Urea Nitrogen 11 mg/dL (7-20) 19 mg/dL (7-20) Creatinine 0.7 mg/dL (0.6-1.0) 0.8 mg/dL (0.6-1.0) Estimated GFR (Cockcroft-Gault) 88.9 76.2 Glucose Level 169 mg/dL (70-99) 264 mg/dL (70-99) Calcium Level 7.5 mg/dL (8.5-10.1) 9.2 mg/dL (8.5-10.1) Magnesium Level 1.4 mg/dL (1.8-2.4) 2.1 mg/dL (1.8-2.4) O2 Saturation 99 % (92-99) Arterial Blood pH 7.25 (7.35-7.45) Arterial Blood pCO2 at Patient Temp 32 mmHg (35-46) Arterial Blood pO2 at Patient Temp 374 mmHg (75-108) Arterial Blood HCO3 13 mmol/L (21-28) Arterial Blood Base Excess -13 mmol/L (-3-3) FiO2 80%+5 Neutrophils (%) (Auto) 85 % (31-73) Lymphocytes (%) (Auto) 8 % (24-48) Monocytes (%) (Auto) 6 % (0-9) Eosinophils (%) (Auto) 0 % (0-3) Basophils (%) (Auto) 0 % (0-3) Neutrophils # (Auto) 16.1 x10^3/uL (1.8-7.7) Lymphocytes # (Auto) 1.5 x10^3/uL (1.0-4.8) Monocytes # (Auto) 1.2 x10^3/uL (0.0-1.1) Eosinophils # (Auto) 0.0 x10^3/uL (0.0-0.7) Basophils # (Auto) 0.1 x10^3/uL (0.0-0.2) Phosphorus Level 3.5 mg/dL (2.6-4.7) Test 10/19/19 06:06 10/19/19 08:30 10/19/19 11:55 Glucose (Fingerstick) 249 mg/dL (70-99) 235 mg/dL (70-99) O2 Saturation 98 % (92-99) 97 % (92-99) Arterial Blood pH 7.60 (7.35-7.45) 7.38 (7.35-7.45) Arterial Blood pCO2 at Patient Temp 22 mmHg (35-46) 38 mmHg (35-46) Arterial Blood pO2 at Patient Temp 120 mmHg (75-108) 111 mmHg (75-108) Arterial Blood HCO3 21 mmol/L (21-28) 22 mmol/L (21-28) Arterial Blood Base Excess 0 mmol/L (-3-3) -3 mmol/L (-3-3) FiO2 40 40 Laboratory Tests Test 10/18/19 15:30 10/18/19 16:10 10/18/19 21:30 10/19/19 06:00 White Blood Count 49.3 x10^3/uL (4.0-11.0) 21.5 x10^3/uL (4.0-11.0) 18.9 x10^3/uL (4.0-11.0) Red Blood Count 2.36 x10^6/uL (3.50-5.40) 2.77 x10^6/uL (3.50-5.40) 2.55 x10^6/uL (3.50-5.40) Hemoglobin 6.7 g/dL (12.0-15.5) 8.2 g/dL (12.0-15.5) 7.5 g/dL (12.0-15.5) Hematocrit 20.9 % (36.0-47.0) 23.1 % (36.0-47.0) 21.6 % (36.0-47.0) Mean Corpuscular Volume 89 fL (79-100) 84 fL (79-100) 85 fL (79-100) Mean Corpuscular Hemoglobin 28 pg (25-35) 30 pg (25-35) 29 pg (25-35) Mean Corpuscular Hemoglobin Concent 32 g/dL (31-37) 36 g/dL (31-37) 35 g/dL (31-37) Red Cell Distribution Width 16.7 % (11.5-14.5) 14.8 % (11.5-14.5) 14.8 % (11.5-14.5) Platelet Count 335 x10^3/uL (140-400) 211 x10^3/uL (140-400) 253 x10^3/uL (140-400) Sodium Level 138 mmol/L (136-145) 138 mmol/L (136-145) Potassium Level 4.3 mmol/L (3.5-5.1) 3.9 mmol/L (3.5-5.1) Chloride Level 107 mmol/L (98-107) 104 mmol/L (98-107) Carbon Dioxide Level 15 mmol/L (21-32) 26 mmol/L (21-32) Anion Gap 16 (6-14) 8 (6-14) Blood Urea Nitrogen 11 mg/dL (7-20) 19 mg/dL (7-20) Creatinine 0.7 mg/dL (0.6-1.0) 0.8 mg/dL (0.6-1.0) Estimated GFR (Cockcroft-Gault) 88.9 76.2 Glucose Level 169 mg/dL (70-99) 264 mg/dL (70-99) Calcium Level 7.5 mg/dL (8.5-10.1) 9.2 mg/dL (8.5-10.1) Magnesium Level 1.4 mg/dL (1.8-2.4) 2.1 mg/dL (1.8-2.4) O2 Saturation 99 % (92-99) Arterial Blood pH 7.25 (7.35-7.45) Arterial Blood pCO2 at Patient Temp 32 mmHg (35-46) Arterial Blood pO2 at Patient Temp 374 mmHg (75-108) Arterial Blood HCO3 13 mmol/L (21-28) Arterial Blood Base Excess -13 mmol/L (-3-3) FiO2 80%+5 Neutrophils (%) (Auto) 85 % (31-73) Lymphocytes (%) (Auto) 8 % (24-48) Monocytes (%) (Auto) 6 % (0-9) Eosinophils (%) (Auto) 0 % (0-3) Basophils (%) (Auto) 0 % (0-3) Neutrophils # (Auto) 16.1 x10^3/uL (1.8-7.7) Lymphocytes # (Auto) 1.5 x10^3/uL (1.0-4.8) Monocytes # (Auto) 1.2 x10^3/uL (0.0-1.1) Eosinophils # (Auto) 0.0 x10^3/uL (0.0-0.7) Basophils # (Auto) 0.1 x10^3/uL (0.0-0.2) Phosphorus Level 3.5 mg/dL (2.6-4.7) Test 10/19/19 06:06 10/19/19 08:30 10/19/19 11:55 Glucose (Fingerstick) 249 mg/dL (70-99) 235 mg/dL (70-99) O2 Saturation 98 % (92-99) 97 % (92-99) Arterial Blood pH 7.60 (7.35-7.45) 7.38 (7.35-7.45) Arterial Blood pCO2 at Patient Temp 22 mmHg (35-46) 38 mmHg (35-46) Arterial Blood pO2 at Patient Temp 120 mmHg (75-108) 111 mmHg (75-108) Arterial Blood HCO3 21 mmol/L (21-28) 22 mmol/L (21-28) Arterial Blood Base Excess 0 mmol/L (-3-3) -3 mmol/L (-3-3) FiO2 40 40 Microbiology 10/16/19 Blood Culture - Preliminary, Resulted NO GROWTH AFTER 2 DAYS 10/03/19 Gram Stain - Final, Complete 10/03/19 Aerobic and Anaerobic Culture - Final, Complete 10/01/19 Gram Stain Evaluation - Final, Complete 10/01/19 Respiratory Culture - Final, Complete 10/01/19 Antimicrobic Susceptibility - Final, Complete 09/25/19 Urine Culture - Final, Complete 09/17/19 Gram Stain - Final, Complete 09/17/19 Aerobic Culture - Final, Complete Medications Current Medications Sodium Chloride 1,000 ml @ 1,000 mls/hr Q1H IV Last administered on 07/04/19at 03:00; Start 07/04/19 at 03:00; Stop 07/04/19 at 03:59; Status DC Ondansetron HCl (Zofran) 4 mg 1X ONCE IVP Last administered on 07/04/19at 03:27; Start 07/04/19 at 03:00; Stop 07/04/19 at 03:01; Status DC Morphine Sulfate (Morphine Sulfate) 4 mg 1X ONCE IV ; Start 07/04/19 at 03:00; Stop 07/04/19 at 03:01; Status Cancel Ketorolac Tromethamine (Toradol 30mg Vial) 30 mg 1X ONCE IV Last administered on 07/04/19at 02:54; Start 07/04/19 at 03:00; Stop 07/04/19 at 03:01; Status DC Fentanyl Citrate (Fentanyl 2ml Vial) 25 mcg 1X ONCE IVP Last administered on 07/04/19at 03:23; Start 07/04/19 at 03:30; Stop 07/04/19 at 03:31; Status DC Fentanyl Citrate (Fentanyl 2ml Vial) 100 mcg STK-MED ONCE .ROUTE ; Start 07/04/19 at 03:18; Stop 07/04/19 at 03:18; Status DC Iohexol (Omnipaque 350 Mg/ml) 90 ml 1X ONCE IV Last administered on 07/04/19at 03:25; Start 07/04/19 at 03:30; Stop 07/04/19 at 03:31; Status DC Info (CONTRAST GIVEN -- Rx MONITORING) 1 each PRN DAILY PRN MC SEE COMMENTS; Start 07/04/19 at 03:30; Stop 07/06/19 at 03:29; Status DC Hydromorphone HCl (Dilaudid) 0.5 mg 1X ONCE IV Last administered on 07/04/19at 03:55; Start 07/04/19 at 04:30; Stop 07/04/19 at 04:32; Status DC Ondansetron HCl (Zofran) 4 mg PRN Q8HRS PRN IV NAUSEA/VOMITING 1ST CHOICE; Start 07/04/19 at 05:00; Stop 07/04/19 at 09:27; Status DC Morphine Sulfate (Morphine Sulfate) 2 mg PRN Q2HR PRN IV SEVERE PAIN 7-10 Last administered on 07/05/19at 12:26; Start 07/04/19 at 05:00; Stop 07/05/19 at 14:15; Status DC Sodium Chloride 1,000 ml @ 125 mls/hr Q8H IV Last administered on 07/04/19at 20:56; Start 07/04/19 at 05:00; Stop 07/05/19 at 04:59; Status DC Hydromorphone HCl (Dilaudid) 0.5 mg PRN Q3HRS PRN IV SEVERE PAIN 7-10 Last administered on 07/05/19at 10:06; Start 07/04/19 at 05:00; Stop 07/05/19 at 12:01; Status DC Piperacillin Sod/ Tazobactam Sod 4.5 gm/Sodium Chloride 100 ml @ 200 mls/hr 1X ONCE IV Last administered on 07/04/19at 05:44; Start 07/04/19 at 06:00; Stop 07/04/19 at 06:29; Status DC Ondansetron HCl (Zofran) 4 mg PRN Q4HRS PRN IV NAUSEA/VOMITING 1ST CHOICE Last administered on 10/15/19at 13:37; Start 07/04/19 at 09:30 Insulin Human Lispro (HumaLOG) 0-9 UNITS Q6HRS SQ Last administered on 10/19/19at 11:58; Start 07/04/19 at 09:30 Dextrose (Dextrose 50%-Water Syringe) 12.5 gm PRN Q15MIN PRN IV SEE COMMENTS; Start 07/04/19 at 09:30 Pantoprazole Sodium (PROTONIX VIAL for IV PUSH) 40 mg DAILYAC IVP Last administered on 10/19/19at 09:25; Start 07/04/19 at 11:30 Prochlorperazine Edisylate (Compazine) 10 mg PRN Q6HRS PRN IV NAUSEA/VOMITING, 2nd CHOICE Last administered on 10/15/19at 10:53; Start 07/04/19 at 17:45 Atenolol (Tenormin) 100 mg DAILY PO ; Start 07/05/19 at 09:00; Stop 07/04/19 at 20:08; Status DC Metoprolol Tartrate (Lopressor Vial) 2.5 mg Q6HRS IVP Last administered on 07/05/19at 05:51; Start 07/04/19 at 20:15; Stop 07/05/19 at 10:02; Status DC Metoprolol Tartrate (Lopressor Vial) 5 mg Q6HRS IVP Last administered on 07/14/19at 00:12; Start 07/05/19 at 10:15; Stop 07/16/19 at 08:48; Status DC Hydromorphone HCl (Dilaudid) 1 mg PRN Q3HRS PRN IV SEVERE PAIN 7-10 Last administered on 07/11/19at 05:13; Start 07/05/19 at 12:00; Stop 07/19/19 at 00:25; Status DC Lidocaine HCl (Buffered Lidocaine 1%) 3 ml STK-MED ONCE .ROUTE ; Start 07/05/19 at 12:55; Stop 07/05/19 at 12:56; Status DC Albumin Human 500 ml @ 125 mls/hr 1X ONCE IV Last administered on 07/05/19at 14:33; Start 07/05/19 at 14:30; Stop 07/05/19 at 18:32; Status DC Norepinephrine Bitartrate 8 mg/ Dextrose 258 ml @ 17.299 mls/ hr CONT PRN IV PER PROTOCOL Last administered on 08/02/19at 12:48; Start 07/05/19 at 15:30; Stop 08/05/19 at 09:19; Status DC Sodium Chloride 1,000 ml @ 125 mls/hr Q8H IV Last administered on 07/05/19at 21:04; Start 07/05/19 at 16:00; Stop 07/06/19 at 02:42; Status DC Albumin Human 500 ml @ 125 mls/hr PRN BID PRN IV After every 2L NSS & BP < 90mm Last administered on 10/18/19at 16:06; Start 07/05/19 at 16:00 Iohexol (Omnipaque 300 Mg/ml) 60 ml 1X ONCE IV Last administered on 07/05/19at 17:20; Start 07/05/19 at 17:00; Stop 07/05/19 at 17:01; Status DC Info (CONTRAST GIVEN -- Rx MONITORING) 1 each PRN DAILY PRN MC SEE COMMENTS; Start 07/05/19 at 17:00; Stop 07/07/19 at 16:59; Status DC Meropenem 1 gm/ Sodium Chloride 100 ml @ 200 mls/hr Q8HRS IV Last administered on 07/06/19at 05:45; Start 07/05/19 at 20:00; Stop 07/06/19 at 08:48; Status DC Furosemide (Lasix) 40 mg 1X ONCE IVP Last administered on 07/05/19at 22:12; Start 07/05/19 at 22:30; Stop 07/05/19 at 22:31; Status DC Calcium Chloride 1000 mg/Sodium Chloride 110 ml @ 220 mls/hr 1X ONCE IV Last administered on 07/05/19at 22:11; Start 07/05/19 at 22:30; Stop 07/05/19 at 22:59; Status DC Albuterol Sulfate (Ventolin Neb Soln) 2.5 mg 1X ONCE NEB Last administered on 07/06/19at 00:56; Start 07/05/19 at 22:30; Stop 07/05/19 at 22:31; Status DC Insulin Human Regular (HumuLIN R VIAL) 5 unit 1X ONCE IV Last administered on 07/05/19at 22:14; Start 07/05/19 at 22:30; Stop 07/05/19 at 22:31; Status DC Magnesium Sulfate 50 ml @ 25 mls/hr 1X ONCE IV Last administered on 07/06/19at 02:57; Start 07/06/19 at 03:00; Stop 07/06/19 at 04:59; Status DC Calcium Gluconate 1000 mg/Sodium Chloride 110 ml @ 220 mls/hr 1X ONCE IV Last administered on 07/06/19at 02:46; Start 07/06/19 at 03:00; Stop 07/06/19 at 03:29; Status DC Sodium Chloride 1,000 ml @ 200 mls/hr Q5H IV Last administered on 07/06/19at 02:46; Start 07/06/19 at 03:00; Stop 07/06/19 at 10:21; Status DC Calcium Gluconate 1000 mg/Sodium Chloride 110 ml @ 220 mls/hr 1X ONCE IV Last administered on 07/06/19at 03:21; Start 07/06/19 at 03:30; Stop 07/06/19 at 03:59; Status DC Sodium Bicarbonate 50 meq/Sodium Chloride 1,050 ml @ 75 mls/hr Q14H IV Last administered on 07/10/19at 21:10; Start 07/06/19 at 07:30; Stop 07/11/19 at 10:28; Status DC Calcium Gluconate 2000 mg/Sodium Chloride 120 ml @ 220 mls/hr 1X ONCE IV Last administered on 07/06/19at 09:05; Start 07/06/19 at 07:30; Stop 07/06/19 at 08:02; Status DC Lidocaine HCl (Xylocaine-Mpf 1% 2ml Vial) 2 ml STK-MED ONCE .ROUTE ; Start 07/06/19 at 08:47; Stop 07/06/19 at 08:47; Status DC Meropenem 500 mg/ Sodium Chloride 50 ml @ 100 mls/hr Q12HR IV Last administered on 07/11/19at 21:01; Start 07/06/19 at 18:00; Stop 07/12/19 at 07:58; Status DC Lidocaine HCl (Buffered Lidocaine 1%) 3 ml STK-MED ONCE .ROUTE ; Start 07/06/19 at 09:46; Stop 07/06/19 at 09:46; Status DC Lidocaine HCl (Buffered Lidocaine 1%) 6 ml 1X ONCE INJ Last administered on 07/06/19at 10:26; Start 07/06/19 at 10:15; Stop 07/06/19 at 10:16; Status DC Info (Tpn Per Pharmacy) 1 each PRN DAILY PRN MC SEE COMMENTS Last administered on 10/18/19at 09:08; Start 07/06/19 at 12:00 Sodium Chloride 1,000 ml @ 1,000 mls/hr Q1H PRN IV hypotension; Start 07/06/19 at 12:07; Stop 07/06/19 at 18:06; Status DC Diphenhydramine HCl (Benadryl) 25 mg 1X PRN PRN IV ITCHING; Start 07/06/19 at 12:15; Stop 07/07/19 at 12:14; Status DC Diphenhydramine HCl (Benadryl) 25 mg 1X PRN PRN IV ITCHING; Start 07/06/19 at 12:15; Stop 07/07/19 at 12:14; Status DC Sodium Chloride 1,000 ml @ 400 mls/hr Q2H30M PRN IV PATENCY; Start 07/06/19 at 12:07; Stop 07/07/19 at 00:06; Status DC Info (PHARMACY MONITORING -- do not chart) 1 each PRN DAILY PRN MC SEE COMMENTS; Start 07/06/19 at 12:15; Stop 07/08/19 at 08:13; Status DC Sodium Chloride 90 meq/Calcium Gluconate 10 meq/ Multivitamins 10 ml/Chromium/ Copper/Manganese/ Seleni/Zn 1 ml/ Total Parenteral Nutrition/Amino Acids/Dextrose/ Fat Emulsion Intravenous 55.005 ml @ 2.292 mls/hr TPN CONT IV ; Start 07/06/19 at 22:00; Stop 07/06/19 at 12:33; Status DC Info (Tpn Per Pharmacy) 1 each PRN DAILY PRN MC SEE COMMENTS; Start 07/06/19 at 12:30; Status UNV Sodium Chloride 90 meq/Calcium Gluconate 10 meq/ Multivitamins 10 ml/Chromium/ Copper/Manganese/ Seleni/Zn 0.5 ml/ Total Parenteral Nutrition/Amino Acids/Dextrose/ Fat Emulsion Intravenous 1,512 ml @ 63 mls/hr TPN CONT IV Last administered on 07/06/19at 22:06; Start 07/06/19 at 22:00; Stop 07/07/19 at 21:59; Status DC Calcium Carbonate/ Glycine (Tums) 500 mg PRN AFTMEALHC PRN PO INDIGESTION; Start 07/06/19 at 17:45; Stop 08/31/19 at 10:25; Status DC Calcium Gluconate (Calcium Gluconate) 2,000 mg 1X ONCE IVP Last administered on 07/07/19at 02:19; Start 07/07/19 at 02:15; Stop 07/07/19 at 02:16; Status DC Calcium Chloride 3000 mg/Sodium Chloride 1,030 ml @ 50 mls/hr [id number] IV Last administered on 07/09/19at 02:17; Start 07/07/19 at 08:00; Stop 07/09/19 at 15:23; Status DC Lorazepam (Ativan Inj) 1 mg PRN Q4HRS PRN IVP ANXIETY / AGITATION, 2nd choic Last administered on 08/05/19at 03:51; Start 07/07/19 at 09:00; Stop 08/05/19 at 09:19; Status DC Sodium Chloride 1,000 ml @ 1,000 mls/hr Q1H PRN IV hypotension; Start 07/07/19 at 08:56; Stop 07/07/19 at 14:55; Status DC Albumin Human 200 ml @ 200 mls/hr 1X PRN PRN IV Hypotension; Start 07/07/19 at 09:00; Stop 07/07/19 at 14:59; Status DC Diphenhydramine HCl (Benadryl) 25 mg 1X PRN PRN IV ITCHING; Start 07/07/19 at 09:00; Stop 07/08/19 at 08:59; Status DC Diphenhydramine HCl (Benadryl) 25 mg 1X PRN PRN IV ITCHING; Start 07/07/19 at 09:00; Stop 07/08/19 at 08:59; Status DC Sodium Chloride 1,000 ml @ 400 mls/hr Q2H30M PRN IV PATENCY; Start 07/07/19 at 08:56; Stop 07/07/19 at 20:55; Status DC Info (PHARMACY MONITORING -- do not chart) 1 each PRN DAILY PRN MC SEE COMMENTS; Start 07/07/19 at 09:00; Status UNV Info (PHARMACY MONITORING -- do not chart) 1 each PRN DAILY PRN MC SEE COMMENTS; Start 07/07/19 at 09:00; Stop 07/08/19 at 08:13; Status DC Digoxin (Lanoxin) 500 mcg 1X ONCE IV Last administered on 07/07/19at 10:04; Start 07/07/19 at 10:00; Stop 07/07/19 at 10:01; Status DC Digoxin (Lanoxin) 125 mcg 1X ONCE IV Last administered on 07/07/19at 17:10; Start 07/07/19 at 18:00; Stop 07/07/19 at 18:01; Status DC Magnesium Sulfate 100 ml @ 25 mls/hr 1X ONCE IV Last administered on 07/07/19at 12:48; Start 07/07/19 at 13:00; Stop 07/07/19 at 16:59; Status DC Sodium Chloride 90 meq/Magnesium Sulfate 10 meq/ Calcium Gluconate 20 meq/ Multivitamins 10 ml/Chromium/ Copper/Manganese/ Seleni/Zn 0.5 ml/ Total Parenteral Nutrition/Amino Acids/Dextrose/ Fat Emulsion Intravenous 1,512 ml @ 63 mls/hr TPN CONT IV Last administered on 07/07/19at 22:25; Start 07/07/19 at 22:00; Stop 07/08/19 at 21:59; Status DC Sodium Chloride 1,000 ml @ 1,000 mls/hr Q1H PRN IV hypotension; Start 07/08/19 at 08:05; Stop 07/08/19 at 14:04; Status DC Albumin Human 200 ml @ 200 mls/hr 1X ONCE IV Last administered on 07/08/19at 08:57; Start 07/08/19 at 08:15; Stop 07/08/19 at 09:14; Status DC Diphenhydramine HCl (Benadryl) 25 mg 1X PRN PRN IV ITCHING; Start 07/08/19 at 08:15; Stop 07/09/19 at 08:14; Status DC Diphenhydramine HCl (Benadryl) 25 mg 1X PRN PRN IV ITCHING; Start 07/08/19 at 08:15; Stop 07/09/19 at 08:14; Status DC Sodium Chloride 1,000 ml @ 400 mls/hr Q2H30M PRN IV PATENCY; Start 07/08/19 at 08:05; Stop 07/08/19 at 20:04; Status DC Info (PHARMACY MONITORING -- do not chart) 1 each PRN DAILY PRN MC SEE COMMENTS; Start 07/08/19 at 08:15; Stop 07/12/19 at 07:57; Status DC Sodium Chloride 90 meq/Potassium Chloride 15 meq/ Potassium Phosphate 10 mmol/ Magnesium Sulfate 10 meq/Calcium Gluconate 20 meq/ Multivitamins 10 ml/Chromium/ Copper/Manganese/ Seleni/Zn 0.5 ml/ Total Parenteral Nutrition/Amino Acids/Dextrose/ Fat Emulsion Intravenous 1,512 ml @ 63 mls/hr TPN CONT IV Last administered on 07/08/19at 21:01; Start 07/08/19 at 22:00; Stop 07/09/19 at 21:59; Status DC Potassium Chloride/Water 100 ml @ 100 mls/hr 1X ONCE IV Last administered on 07/08/19at 14:09; Start 07/08/19 at 14:00; Stop 07/08/19 at 14:59; Status DC Benzocaine (Hurricaine One) 1 spray 1X ONCE MM Last administered on 07/08/19at 16:38; Start 07/08/19 at 14:30; Stop 07/08/19 at 14:31; Status DC Lidocaine HCl (Glydo (Lidocaine) Jelly) 1 ramu 1X ONCE MM Last administered on 07/08/19at 16:38; Start 07/08/19 at 14:30; Stop 07/08/19 at 14:31; Status DC Linezolid/Dextrose 300 ml @ 300 mls/hr Q12HR IV Last administered on 07/14/19at 21:04; Start 07/08/19 at 20:00; Stop 07/15/19 at 07:50; Status DC Acetaminophen (Tylenol) 650 mg PRN Q6HRS PRN PO MILD PAIN / TEMP; Start 07/09/19 at 03:30; Stop 07/09/19 at 03:36; Status DC Acetaminophen (Tylenol) 650 mg PRN Q6HRS PRN PEG MILD PAIN / TEMP Last administered on 08/04/19at 19:56; Start 07/09/19 at 03:36; Stop 08/31/19 at 10:25; Status DC Sodium Chloride 1,000 ml @ 1,000 mls/hr Q1H PRN IV hypotension; Start 07/09/19 at 07:50; Stop 07/09/19 at 13:49; Status DC Albumin Human 200 ml @ 200 mls/hr 1X PRN PRN IV Hypotension; Start 07/09/19 at 08:00; Stop 07/09/19 at 13:59; Status DC Sodium Chloride (Normal Saline Flush) 10 ml 1X PRN PRN IV AP catheter pack; Start 07/09/19 at 08:00; Stop 07/10/19 at 07:59; Status DC Sodium Chloride (Normal Saline Flush) 10 ml 1X PRN PRN IV [employer] catheter pack; Start 07/09/19 at 08:00; Stop 07/10/19 at 07:59; Status DC Sodium Chloride 1,000 ml @ 400 mls/hr Q2H30M PRN IV PATENCY; Start 07/09/19 at 07:50; Stop 07/09/19 at 19:49; Status DC Info (PHARMACY MONITORING -- do not chart) 1 each PRN DAILY PRN MC SEE COMMENTS; Start 07/09/19 at 08:00; Status UNV Info (PHARMACY MONITORING -- do not chart) 1 each PRN DAILY PRN MC SEE COMMENTS; Start 07/09/19 at 08:00; Stop 07/11/19 at 08:25; Status DC Sodium Chloride 90 meq/Potassium Chloride 15 meq/ Potassium Phosphate 10 mmol/ Magnesium Sulfate 10 meq/Calcium Gluconate 20 meq/ Multivitamins 10 ml/Chromium/ Copper/Manganese/ Seleni/Zn 0.5 ml/ Total Parenteral Nutrition/Amino Acids/Dextrose/ Fat Emulsion Intravenous 1,512 ml @ 63 mls/hr TPN CONT IV Last administered on 07/09/19at 20:57; Start 07/09/19 at 22:00; Stop 07/10/19 at 21:59; Status DC Sodium Chloride 90 meq/Potassium Chloride 15 meq/ Potassium Phosphate 15 mmol/ Magnesium Sulfate 10 meq/Calcium Gluconate 20 meq/ Multivitamins 10 ml/Chromium/ Copper/Manganese/ Seleni/Zn 0.5 ml/ Total Parenteral Nutrition/Amino Acids/Dextrose/ Fat Emulsion Intravenous 1,512 ml @ 63 mls/hr TPN CONT IV ; Start 07/10/19 at 22:00; Stop 07/10/19 at 14:16; Status DC Sodium Chloride 90 meq/Potassium Chloride 15 meq/ Potassium Phosphate 15 mmol/ Magnesium Sulfate 10 meq/Calcium Gluconate 20 meq/ Multivitamins 10 ml/Chromium/ Copper/Manganese/ Seleni/Zn 0.5 ml/ Total Parenteral Nutrition/Amino Acids/Dextrose/ Fat Emulsion Intravenous 1,200 ml @ 50 mls/hr TPN CONT IV ; Start 07/10/19 at 22:00; Stop 07/10/19 at 14:17; Status DC Sodium Chloride 90 meq/Potassium Chloride 15 meq/ Potassium Phosphate 10 mmol/ Magnesium Sulfate 10 meq/Calcium Gluconate 20 meq/ Multivitamins 10 ml/Chromium/ Copper/Manganese/ Seleni/Zn 0.5 ml/ Total Parenteral Nutrition/Amino Acids/Dextrose/ Fat Emulsion Intravenous 1,200 ml @ 50 mls/hr TPN CONT IV Last administered on 07/10/19at 23:29; Start 07/10/19 at 22:00; Stop 07/11/19 at 21:59; Status DC Sodium Chloride 1,000 ml @ 1,000 mls/hr Q1H PRN IV hypotension; Start 07/11/19 at 07:28; Stop 07/11/19 at 13:27; Status DC Albumin Human 200 ml @ 200 mls/hr 1X ONCE IV Last administered on 07/11/19at 08:51; Start 07/11/19 at 07:30; Stop 07/11/19 at 08:29; Status DC Diphenhydramine HCl (Benadryl) 25 mg 1X PRN PRN IV ITCHING; Start 07/11/19 at 07:30; Stop 07/12/19 at 07:29; Status DC Diphenhydramine HCl (Benadryl) 25 mg 1X PRN PRN IV ITCHING; Start 07/11/19 at 07:30; Stop 07/12/19 at 07:29; Status DC Sodium Chloride 1,000 ml @ 400 mls/hr Q2H30M PRN IV PATENCY; Start 07/11/19 at 07:28; Stop 07/11/19 at 19:27; Status DC Info (PHARMACY MONITORING -- do not chart) 1 each PRN DAILY PRN MC SEE COMMENTS; Start 07/11/19 at 07:30; Stop 07/22/19 at 13:01; Status DC Metronidazole 100 ml @ 100 mls/hr Q6HRS IV Last administered on 07/27/19at 06:26; Start 07/11/19 at 08:30; Stop 07/27/19 at 09:58; Status DC Micafungin Sodium 100 mg/Dextrose 100 ml @ 100 mls/hr Q24H IV Last adm inistered on 08/18/19at 08:18; Start 07/11/19 at 09:00; Stop 08/18/19 at 20:58; Status DC Propofol 0 ml @ As Directed STK-MED ONCE IV ; Start 07/11/19 at 07:53; Stop 07/11/19 at 07:53; Status DC Etomidate (Amidate) 20 mg STK-MED ONCE IV ; Start 07/11/19 at 07:53; Stop 07/11/19 at 07:54; Status DC Midazolam HCl (Versed) 5 mg STK-MED ONCE .ROUTE ; Start 07/11/19 at 07:57; Stop 07/11/19 at 07:57; Status DC Fentanyl Citrate 30 ml @ 0 mls/hr CONT PRN IV SEE PROTOCOL Last administered on 08/05/19at 06:12; Start 07/11/19 at 08:15; Stop 08/05/19 at 09:19; Status DC Artificial Tears (Artificial Tears) 1 drop PRN Q1HR PRN OU DRY EYE, 1st choice; Start 07/11/19 at 08:15; Stop 08/17/19 at 05:31; Status DC Midazolam HCl 50 mg/Sodium Chloride 50 ml @ 0 mls/hr CONT PRN IV SEE PROTOCOL Last administered on 07/14/19at 22:39; Start 07/11/19 at 08:15; Stop 07/16/19 at 15:59; Status DC Etomidate (Amidate) 8 mg 1X ONCE IV Last administered on 07/11/19at 08:33; Start 07/11/19 at 08:30; Stop 07/11/19 at 08:31; Status DC Succinylcholine Chloride (Anectine) 120 mg 1X ONCE IV Last administered on 07/11/19at 08:34; Start 07/11/19 at 08:30; Stop 07/11/19 at 08:31; Status DC Midazolam HCl (Versed) 5 mg 1X ONCE IV ; Start 07/11/19 at 08:30; Stop 07/11/19 at 08:31; Status DC Potassium Chloride 15 meq/ Bicarbonate Dialysis Soln w/ out KCl 5,007.5 ml @ 1,000 mls/ hr Q5H1M IV Last administered on 07/12/19at 11:11; Start 07/11/19 at 12:00; Stop 07/12/19 at 11:15; Status DC Potassium Chloride 15 meq/ Bicarbonate Dialysis Soln w/ out KCl 5,007.5 ml @ 1,000 mls/ hr Q5H1M IV Last administered on 07/12/19at 11:12; Start 07/11/19 at 12:00; Stop 07/12/19 at 11:17; Status DC Potassium Chloride 15 meq/ Bicarbonate Dialysis Soln w/ out KCl 5,007.5 ml @ 1,000 mls/ hr Q5H1M IV Last administered on 07/12/19at 11:11; Start 07/11/19 at 12:00; Stop 07/12/19 at 11:19; Status DC Sodium Chloride 90 meq/Potassium Chloride 15 meq/ Potassium Phosphate 10 mmol/ Magnesium Sulfate 10 meq/Calcium Gluconate 20 meq/ Multivitamins 10 ml/Chromium/ Copper/Manganese/ Seleni/Zn 0.5 ml/ Total Parenteral Nutrition/Amino Acids/Dextrose/ Fat Emulsion Intravenous 1,400 ml @ 58.333 mls/ hr TPN CONT IV Last administered on 07/11/19at 21:42; Start 07/11/19 at 22:00; Stop 07/12/19 at 21:59; Status DC Heparin Sodium (Porcine) (Heparin Sodium) 5,000 unit Q8HRS SQ Last administered on 07/16/19at 05:55; Start 07/11/19 at 15:00; Stop 07/16/19 at 13:28; Status DC Meropenem 500 mg/ Sodium Chloride 50 ml @ 100 mls/hr Q6HRS IV Last administered on 07/13/19at 06:00; Start 07/12/19 at 09:00; Stop 07/13/19 at 07:29; Status DC Potassium Phosphate 20 mmol/ Sodium Chloride 106.6667 ml @ 51.667 m... 1X ONCE IV Last administered on 07/12/19at 11:22; Start 07/12/19 at 10:15; Stop 07/12/19 at 12:18; Status DC Acetaminophen (Tylenol Supp) 650 mg PRN Q6HRS PRN HI MILD PAIN / TEMP > 100.3'F Last administered on 10/17/19at 18:16; Start 07/12/19 at 10:30 Potassium Chloride/Water 100 ml @ 100 mls/hr Q1H IV Last administered on 07/12/19at 12:12; Start 07/12/19 at 11:00; Stop 07/12/19 at 12:59; Status DC Potassium Chloride 20 meq/ Bicarbonate Dialysis Soln w/ out KCl 5,010 ml @ 1,000 mls/hr Q5H1M IV Last administered on 07/13/19at 08:48; Start 07/12/19 at 12:00; Stop 07/13/19 at 13:03; Status DC Potassium Chloride 20 meq/ Bicarbonate Dialysis Soln w/ out KCl 5,010 ml @ 1,000 mls/hr Q5H1M IV Last administered on 07/17/19at 14:52; Start 07/12/19 at 11:30; Stop 07/17/19 at 19:59; Status DC Potassium Chloride 20 meq/ Bicarbonate Dialysis Soln w/ out KCl 5,010 ml @ 1,000 mls/hr Q5H1M IV Last administered on 07/17/19at 14:53; Start 07/12/19 at 11:30; Stop 07/17/19 at 19:59; Status DC Sodium Chloride 90 meq/Potassium Chloride 15 meq/ Potassium Phosphate 15 mmol/ Magnesium Sulfate 10 meq/Calcium Gluconate 15 meq/ Multivitamins 10 ml/Chromium/ Copper/Manganese/ Seleni/Zn 0.5 ml/ Total Parenteral Nutrition/Amino Acids/Dextrose/ Fat Emulsion Intravenous 1,400 ml @ 58.333 mls/ hr TPN CONT IV Last administered on 07/12/19at 22:17; Start 07/12/19 at 22:00; Stop 07/13/19 at 21:59; Status DC Cefepime HCl (Maxipime) 2 gm Q12HR IVP Last administered on 07/26/19at 20:56; Start 07/13/19 at 09:00; Stop 07/27/19 at 09:58; Status DC Daptomycin 500 mg/ Sodium Chloride 50 ml @ 100 mls/hr Q48H IV Last administered on 07/29/19at 09:57; Start 07/13/19 at 08:30; Stop 07/29/19 at 10:07; Status DC Lidocaine HCl (Buffered Lidocaine 1%) 3 ml 1X ONCE INJ Last administered on 07/13/19at 10:27; Start 07/13/19 at 10:30; Stop 07/13/19 at 10:31; Status DC Potassium Phosphate 20 mmol/ Sodium Chloride 106.6667 ml @ 51.667 m... 1X ONCE IV Last administered on 07/13/19at 12:51; Start 07/13/19 at 13:00; Stop 07/13/19 at 15:03; Status DC Sodium Chloride 90 meq/Potassium Chloride 15 meq/ Potassium Phosphate 18 mmol/ Magnesium Sulfate 8 meq/Calcium Gluconate 15 meq/ Multivitamins 10 ml/Chromium/ Copper/Manganese/ Seleni/Zn 0.5 ml/ Total Parenteral Nutrition/Amino Acids/Dextrose/ Fat Emulsion Intravenous 1,400 ml @ 58.333 mls/ hr TPN CONT IV Last administered on 07/13/19at 22:16; Start 07/13/19 at 22:00; Stop 07/14/19 at 21:59; Status DC Potassium Chloride 20 meq/ Bicarbonate Dialysis Soln w/ out KCl 5,010 ml @ 1,000 mls/hr Q5H1M IV Last administered on 07/17/19at 14:54; Start 07/13/19 at 16:00; Stop 07/17/19 at 19:59; Status DC Multi-Ingred Cream/Lotion/Oil/ Oint (Artificial Tears Eye Ointment) 1 ramu PRN Q1HR PRN OU DRY EYE, 2nd choice Last administered on 08/01/19at 08:19; Start 07/13/19 at 17:30; Stop 09/21/19 at 14:39; Status DC Sodium Chloride 90 meq/Potassium Chloride 15 meq/ Potassium Phosphate 18 mmol/ Magnesium Sulfate 8 meq/Calcium Gluconate 15 meq/ Multivitamins 10 ml/Chromium/ Copper/Manganese/ Seleni/Zn 0.5 ml/ Total Parenteral Nutrition/Amino Acids/Dextrose/ Fat Emulsion Intravenous 1,400 ml @ 58.333 mls/ hr TPN CONT IV Last administered on 07/14/19at 22:00; Start 07/14/19 at 22:00; Stop 07/15/19 at 21:59; Status DC Albumin Human 500 ml @ 125 mls/hr 1X ONCE IV ; Start 07/14/19 at 14:15; Stop 07/14/19 at 18:14; Status DC Sodium Chloride 90 meq/Potassium Chloride 15 meq/ Potassium Phosphate 18 mmol/ Magnesium Sulfate 8 meq/Calcium Gluconate 15 meq/ Multivitamins 10 ml/Chromium/ Copper/Manganese/ Seleni/Zn 0.5 ml/ Insulin Human Regular 10 unit/ Total Parenteral Nutrition/Amino Acids/Dextrose/ Fat Emulsion Intravenous 1,400 ml @ 58.333 mls/ hr TPN CONT IV Last administered on 07/15/19at 21:43; Start 07/15/19 at 22:00; Stop 07/16/19 at 21:59; Status DC Lidocaine HCl (Buffered Lidocaine 1%) 3 ml STK-MED ONCE .ROUTE ; Start 07/13/19 at 10:00; Stop 07/15/19 at 13:57; Status DC Midazolam HCl 100 mg/Sodium Chloride 100 ml @ 7 mls/hr CONT PRN IV SEE PROTOCOL Last administered on 07/27/19at 15:35; Start 07/16/19 at 16:00; Stop 09/21/19 at 14:38; Status DC Sodium Chloride 90 meq/Potassium Chloride 15 meq/ Potassium Phosphate 18 mmol/ Magnesium Sulfate 8 meq/Calcium Gluconate 15 meq/ Multivitamins 10 ml/Chromium/ Copper/Manganese/ Seleni/Zn 0.5 ml/ Insulin Human Regular 15 unit/ Total Parenteral Nutrition/Amino Acids/Dextrose/ Fat Emulsion Intravenous 1,400 ml @ 58.333 mls/ hr TPN CONT IV Last administered on 07/16/19at 20:34; Start 07/16/19 at 22:00; Stop 07/17/19 at 21:59; Status DC Info (Icu Electrolyte Protocol) 1 ea CONT PRN PRN MC PER PROTOCOL; Start 07/17/19 at 13:15 Sodium Chloride 90 meq/Potassium Chloride 15 meq/ Potassium Phosphate 18 mmol/ Magnesium Sulfate 8 meq/Calcium Gluconate 15 meq/ Multivitamins 10 ml/Chromium/ Copper/Manganese/ Seleni/Zn 0.5 ml/ Insulin Human Regular 15 unit/ Total Parenteral Nutrition/Amino Acids/Dextrose/ Fat Emulsion Intravenous 1,400 ml @ 58.333 mls/ hr TPN CONT IV Last administered on 07/17/19at 22:05; Start 07/17/19 at 22:00; Stop 07/18/19 at 21:59; Status DC Potassium Chloride 15 meq/ Bicarbonate Dialysis Soln w/ out KCl 5,007.5 ml @ 1,000 mls/ hr Q5H1M IV Last administered on 07/20/19at 18:14; Start 07/17/19 at 20:00; Stop 07/21/19 at 13:08; Status DC Potassium Chloride 15 meq/ Bicarbonate Dialysis Soln w/ out KCl 5,007.5 ml @ 1,000 mls/ hr Q5H1M IV Last administered on 07/20/19at 18:14; Start 07/17/19 at 20:00; Stop 07/21/19 at 13:08; Status DC Potassium Chloride 15 meq/ Bicarbonate Dialysis Soln w/ out KCl 5,007.5 ml @ 1,000 mls/ hr Q5H1M IV Last administered on 07/20/19at 18:14; Start 07/17/19 at 20:00; Stop 07/21/19 at 13:08; Status DC Iohexol (Omnipaque 240 Mg/ml) 30 ml 1X ONCE PO Last administered on 07/18/19at 11:30; Start 07/18/19 at 11:30; Stop 07/18/19 at 11:33; Status DC Info (CONTRAST GIVEN -- Rx MONITORING) 1 each PRN DAILY PRN MC SEE COMMENTS; Start 07/18/19 at 11:45; Stop 07/20/19 at 11:44; Status DC Sodium Chloride 90 meq/Potassium Chloride 15 meq/ Potassium Phosphate 18 mmol/ Magnesium Sulfate 8 meq/Calcium Gluconate 15 meq/ Multivitamins 10 ml/Chromium/ Copper/Manganese/ Seleni/Zn 0.5 ml/ Insulin Human Regular 15 unit/ Total Parenteral Nutrition/Amino Acids/Dextrose/ Fat Emulsion Intravenous 1,400 ml @ 58.333 mls/ hr TPN CONT IV Last administered on 07/18/19at 21:47; Start 07/18/19 at 22:00; Stop 07/19/19 at 21:59; Status DC Sodium Chloride 90 meq/Potassium Chloride 15 meq/ Potassium Phosphate 18 mmol/ Magnesium Sulfate 8 meq/Calcium Gluconate 15 meq/ Multivitamins 10 ml/Chromium/ Copper/Manganese/ Seleni/Zn 0.5 ml/ Insulin Human Regular 20 unit/ Total Parenteral Nutrition/Amino Acids/Dextrose/ Fat Emulsion Intravenous 1,400 ml @ 58.333 mls/ hr TPN CONT IV Last administered on 07/19/19at 21:36; Start 07/18 at 22:00; Stop 07/20/19 at 21:59; Status DC Alteplase, Recombinant (Cathflo For Central Catheter Clearance) 1 mg 1X ONCE IN T CAT Last administered on 07/19/19at 20:03; Start 07/19/19 at 19:30; Stop 07/19/19 at 19:46; Status DC Alteplase, Recombinant (Cathflo For Central Catheter Clearance) 1 mg 1X ONCE INT CAT Last administered on 07/19/19at 22:05; Start 07/19/19 at 22:00; Stop 07/19/19 at 22:01; Status DC Sodium Chloride 90 meq/Potassium Chloride 15 meq/ Potassium Phosphate 18 mmol/ Magnesium Sulfate 8 meq/Calcium Gluconate 15 meq/ Multivitamins 10 ml/Chromium/ Copper/Manganese/ Seleni/Zn 0.5 ml/ Insulin Human Regular 20 unit/ Total Parenteral Nutrition/Amino Acids/Dextrose/ Fat Emulsion Intravenous 1,400 ml @ 58.333 mls/ hr TPN CONT IV Last administered on 07/20/19at 21:30; Start 07/20/19 at 22:00; Stop 07/21/19 at 21:59; Status DC Dexmedetomidine HCl 400 mcg/ Sodium Chloride 100 ml @ 0 mls/hr CONT PRN IV ANXIETY / AGITATION Last administered on 09/17/19at 12:57; Start 07/21/19 at 08:15; Stop 09/17/19 at 18:31; Status DC Sodium Chloride 500 ml @ 500 mls/hr 1X PRN PRN IV ELEVATED BP, SEE COMMENTS; Start 07/21/19 at 08:15 Atropine Sulfate (ATROPINE 0.5mg SYRINGE) 0.5 mg PRN Q5MIN PRN IV SEE COMMENTS; Start 07/21/19 at 08:15 Furosemide (Lasix) 20 mg 1X ONCE IVP Last administered on 07/21/19at 08:19; Start 07/21/19 at 08:15; Stop 07/21/19 at 08:16; Status DC Lidocaine HCl (Buffered Lidocaine 1%) 3 ml STK-MED ONCE .ROUTE ; Start 07/21/19 at 08:39; Stop 07/21/19 at 08:39; Status DC Lidocaine HCl (Buffered Lidocaine 1%) 6 ml 1X ONCE INJ Last administered on 07/21/19at 09:05; Start 07/21/19 at 09:00; Stop 07/21/19 at 09:06; Status DC Sodium Chloride 90 meq/Potassium Chloride 15 meq/ Potassium Phosphate 18 mmol/ Magnesium Sulfate 8 meq/Calcium Gluconate 15 meq/ Multivitamins 10 ml/Chromium/ Copper/Manganese/ Seleni/Zn 0.5 ml/ Insulin Human Regular 20 unit/ Total Parenteral Nutrition/Amino Acids/Dextrose/ Fat Emulsion Intravenous 1,400 ml @ 58.333 mls/ hr TPN CONT IV Last administered on 07/21/19at 22:45; Start 07/21/19 at 22:00; Stop 07/22/19 at 21:59; Status DC Sodium Chloride 1,000 ml @ 1,000 mls/hr Q1H PRN IV hypotension; Start 07/22/19 at 07:30; Stop 07/22/19 at 13:29; Status DC Albumin Human 200 ml @ 200 mls/hr 1X PRN PRN IV Hypotension Last administered on 07/22/19at 09:36; Start 07/22/19 at 07:30; Stop 07/22/19 at 13:29; Status DC Sodium Chloride (Normal Saline Flush) 10 ml 1X PRN PRN IV AP catheter pack; Start 07/22/19 at 07:30; Stop 07/22/19 at 21:29; Status DC Sodium Chloride (Normal Saline Flush) 10 ml 1X PRN PRN IV [employer] catheter pack; Start 07/22/19 at 07:30; Stop 07/23/19 at 07:29; Status DC Sodium Chloride 1,000 ml @ 400 mls/hr Q2H30M PRN IV PATENCY; Start 07/22/19 at 07:30; Stop 07/22/19 at 19:29; Status DC Info (PHARMACY MONITORING -- do not chart) 1 each PRN DAILY PRN MC SEE COMMENTS; Start 07/22/19 at 07:30; Stop 07/22/19 at 13:02; Status DC Info (PHARMACY MONITORING -- do not chart) 1 each PRN DAILY PRN MC SEE COMMENTS; Start 07/22/19 at 07:30; Stop 07/24/19 at 12:45; Status DC Sodium Chloride 90 meq/Potassium Chloride 15 meq/ Potassium Phosphate 10 mmol/ Magnesium Sulfate 8 meq/Calcium Gluconate 15 meq/ Multivitamins 10 ml/Chromium/ Copper/Manganese/ Seleni/Zn 0.5 ml/ Insulin Human Regular 25 unit/ Total Parenteral Nutrition/Amino Acids/Dextrose/ Fat Emulsion Intravenous 1,400 ml @ 58.333 mls/ hr TPN CONT IV Last administered on 07/22/19at 22:19; Start 07/22/19 at 22:00; Stop 07/23/19 at 21:59; Status DC Heparin Sodium (Porcine) (Heparin Sodium) 5,000 unit Q12HR SQ Last administered on 08/14/19at 08:59; Start 07/22/19 at 21:00; Stop 08/14/19 at 10:05; Status DC Ondansetron HCl (Zofran) 4 mg PRN Q6HRS PRN IV NAUSEA/VOMITING; Start 07/25/19 at 07:00; Stop 07/26/19 at 06:59; Status DC Fentanyl Citrate (Fentanyl 2ml Vial) 25 mcg PRN Q5MIN PRN IV MILD PAIN 1-3; Start 07/25/19 at 07:00; Stop 07/26/19 at 06:59; Status DC Fentanyl Citrate (Fentanyl 2ml Vial) 50 mcg PRN Q5MIN PRN IV MODERATE TO SEVERE PAIN; Start 07/25/19 at 07:00; Stop 07/26/19 at 06:59; Status DC Ringer's Solution 1,000 ml @ 30 mls/hr Q24H IV ; Start 07/25/19 at 07:00; Stop 07/25/19 at 18:59; Status DC Lidocaine HCl (Xylocaine-Mpf 1% 2ml Vial) 2 ml PRN 1X PRN ID PRIOR TO IV START; Start 07/25/19 at 07:00; Stop 07/26/19 at 06:59; Status DC Prochlorperazine Edisylate (Compazine) 5 mg PACU PRN PRN IV NAUSEA, MRX1; Start 07/25/19 at 07:00; Stop 07/26/19 at 06:59; Status DC Sodium Chloride 1,000 ml @ 1,000 mls/hr Q1H PRN IV hypotension; Start 07/23/19 at 09:10; Stop 07/23/19 at 15:09; Status DC Albumin Human 200 ml @ 200 mls/hr 1X PRN PRN IV Hypotension Last administered on 07/23/19at 10:10; Start 07/23/19 at 09:15; Stop 07/23/19 at 15:14; Status DC Sodium Chloride 1,000 ml @ 400 mls/hr Q2H30M PRN IV PATENCY; Start 07/23/19 at 09:10; Stop 07/23/19 at 21:09; Status DC Info (PHARMACY MONITORING -- do not chart) 1 each PRN DAILY PRN MC SEE COMMENTS; Start 07/23/19 at 09:15; Stop 07/24/19 at 12:45; Status DC Info (PHARMACY MONITORING -- do not chart) 1 each PRN DAILY PRN MC SEE COMMENTS; Start 07/23/19 at 09:15; Stop 07/24/19 at 12:45; Status DC Sodium Chloride 90 meq/Potassium Chloride 15 meq/ Potassium Phosphate 10 mmol/ Magnesium Sulfate 8 meq/Calcium Gluconate 15 meq/ Multivitamins 10 ml/Chromium/ Copper/Manganese/ Seleni/Zn 0.5 ml/ Insulin Human Regular 25 unit/ Total Parenteral Nutrition/Amino Acids/Dextrose/ Fat Emulsion Intravenous 1,400 ml @ 58.333 mls/ hr TPN CONT IV Last administered on 07/23/19at 22:10; Start 07/23/19 at 22:00; Stop 07/24/19 at 21:59; Status DC Magnesium Sulfate 50 ml @ 25 mls/hr PRN DAILY PRN IV for Mag < 1.7 on am labs Last administered on 10/06/19at 10:57; Start 07/24/19 at 09:15 Sodium Chloride 90 meq/Potassium Chloride 15 meq/ Potassium Phosphate 10 mmol/ Magnesium Sulfate 8 meq/Calcium Gluconate 15 meq/ Multivitamins 10 ml/Chromium/ Copper/Manganese/ Seleni/Zn 0.5 ml/ Insulin Human Regular 25 unit/ Total Parenteral Nutrition/Amino Acids/Dextrose/ Fat Emulsion Intravenous 1,400 ml @ 58.333 mls/ hr TPN CONT IV Last administered on 07/24/19at 21:20; Start 07/24/19 at 22:00; Stop 07/25/19 at 21:59; Status DC Sodium Chloride 1,000 ml @ 1,000 mls/hr Q1H PRN IV hypotension; Start 07/24/19 at 12:23; Stop 07/24/19 at 18:22; Status DC Albumin Human 200 ml @ 200 mls/hr 1X ONCE IV Last administered on 07/24/19at 13:34; Start 07/24/19 at 12:30; Stop 07/24/19 at 13:29; Status DC Diphenhydramine HCl (Benadryl) 25 mg 1X PRN PRN IV ITCHING; Start 07/24/19 at 12:30; Stop 07/25/19 at 12:29; Status DC Diphenhydramine HCl (Benadryl) 25 mg 1X PRN PRN IV ITCHING; Start 07/24/19 at 12:30; Stop 07/25/19 at 12:29; Status DC Info (PHARMACY MONITORING -- do not chart) 1 each PRN DAILY PRN MC SEE COMMENTS; Start 07/24/19 at 12:30; Status Cancel Bupivacaine HCl/ Epinephrine Bitart (Sensorcain-Epi 0.5%-1:[id number] Mpf) 30 ml STK-MED ONCE .ROUTE Last administered on 07/25/19at 11:44; Start 07/25/19 at 11:00; Stop 07/25/19 at 11:01; Status DC Cellulose (Surgicel Fibrillar 1x2) 1 each STK-MED ONCE .ROUTE ; Start 07/25/19 at 11:00; Stop 07/25/19 at 11:01; Status DC Sodium Chloride 90 meq/Potassium Chloride 15 meq/ Potassium Phosphate 10 mmol/ Magnesium Sulfate 12 meq/Calcium Gluconate 15 meq/ Multivitamins 10 ml/Chromium/ Copper/Manganese/ Seleni/Zn 0.5 ml/ Insulin Human Regular 25 unit/ Total Pare nteral Nutrition/Amino Acids/Dextrose/ Fat Emulsion Intravenous 1,400 ml @ 58.333 mls/ hr TPN CONT IV Last administered on 07/25/19at 22:24; Start 07/25/19 at 22:00; Stop 07/26/19 at 21:59; Status DC Propofol 20 ml @ As Directed STK-MED ONCE IV ; Start 07/25/19 at 11:07; Stop 07/25/19 at 11:07; Status DC Cellulose (Surgicel Hemostat 4x8) 1 each STK-MED ONCE .ROUTE Last administered on 07/25/19at 11:44; Start 07/25/19 at 11:55; Stop 07/25/19 at 11:56; Status DC Sevoflurane (Ultane) 60 ml STK-MED ONCE IH ; Start 07/25/19 at 12:46; Stop 07/25/19 at 12:46; Status DC Sodium Chloride 1,000 ml @ 1,000 mls/hr Q1H PRN IV hypotension; Start 07/25/19 at 13:51; Stop 07/25/19 at 19:50; Status DC Albumin Human 200 ml @ 200 mls/hr 1X PRN PRN IV Hypotension Last administered on 07/25/19at 14:51; Start 07/25/19 at 14:00; Stop 07/25/19 at 19:59; Status DC Diphenhydramine HCl (Benadryl) 25 mg 1X PRN PRN IV ITCHING; Start 07/25/19 at 14:00; Stop 07/26/19 at 13:59; Status DC Diphenhydramine HCl (Benadryl) 25 mg 1X PRN PRN IV ITCHING; Start 07/25/19 at 14:00; Stop 07/26/19 at 13:59; Status DC Sodium Chloride 1,000 ml @ 400 mls/hr Q2H30M PRN IV PATENCY; Start 07/25/19 at 13:51; Stop 07/26/19 at 01:50; Status DC Info (PHARMACY MONITORING -- do not chart) 1 each PRN DAILY PRN MC SEE LUIS ALBERTO NTS; Start 07/25/19 at 14:00; Stop 07/28/19 at 08:16; Status DC Heparin Sodium (Porcine) (Hep Lock Adult) 500 unit STK-MED ONCE IVP ; Start 07/26/19 at 09:29; Stop 07/26/19 at 09:30; Status DC Sodium Chloride 1,000 ml @ 1,000 mls/hr Q1H PRN IV hypotension; Start 07/26/19 at 10:43; Stop 07/26/19 at 16:42; Status DC Sodium Chloride 1,000 ml @ 400 mls/hr Q2H30M PRN IV PATENCY; Start 07/26/19 at 10:43; Stop 07/26/19 at 22:42; Status DC Info (PHARMACY MONITORING -- do not chart) 1 each PRN DAILY PRN MC SEE PIPE TS; Start 07/26/19 at 10:45; Status UNV Info (PHARMACY MONITORING -- do not chart) 1 each PRN DAILY PRN MC SEE COMMENTS; Start 07/26/19 at 10:45; Status UNV Sodium Chloride 90 meq/Potassium Chloride 15 meq/ Magnesium Sulfate 12 meq/Calcium Gluconate 15 meq/ Multivitamins 10 ml/Chromium/ Copper/Manganese/ Seleni/Zn 0.5 ml/ Insulin Human Regular 25 unit/ Total Parenteral Nutrition/A jeb Acids/Dextrose/ Fat Emulsion Intravenous 1,400 ml @ 58.333 mls/ hr TPN CONT IV Last administered on 07/26/19at 22:13; Start 07/26/19 at 22:00; Stop 07/27/19 at 21:59; Status DC Sodium Chloride 1,000 ml @ 1,000 mls/hr Q1H PRN IV hypotension; Start 07/27/19 at 07:50; Stop 07/27/19 at 13:49; Status DC Albumin Human 200 ml @ 200 mls/hr 1X ONCE IV ; Start 07/27/19 at 08:00; Stop 07/27/19 at 08:53; Status DC Diphenhydramine HCl (Benadryl) 25 mg 1X PRN PRN IV ITCHING; Start 07/27/19 at 08:00; Stop 07/28/19 at 07:59; Status DC Diphenhydramine HCl (Benadryl) 25 mg 1X PRN PRN IV ITCHING; Start 07/27/19 at 08:00; Stop 07/28/19 at 07:59; Status DC Info (PHARMACY MONITORING -- do not chart) 1 each PRN DAILY PRN MC SEE COMMENTS; Start 07/27/19 at 08:00; Stop 07/28/19 at 08:16; Status DC Albumin Human 50 ml @ 50 mls/hr 1X ONCE IV ; Start 07/27/19 at 08:53; Stop 07/27/19 at 08:56; Status DC Albumin Human 200 ml @ 50 mls/hr PRN 1X PRN IV HYPOTENSION Last administered on 08/02/19at 11:54; Start 07/27/19 at 09:00; Stop 09/08/19 at 11:14; Status DC Meropenem 500 mg/ Sodium Chloride 50 ml @ 100 mls/hr Q12H IV Last administered on 08/16/19at 10:45; Start 07/27/19 at 10:00; Stop 08/16/19 at 12:37; Status DC Sodium Chloride 90 meq/Magnesium Sulfate 12 meq/ Calcium Gluconate 15 meq/ Multivitamins 10 ml/Chromium/ Copper/Manganese/ Seleni/Zn 0.5 ml/ Insulin Human Regular 25 unit/ Total Parenteral Nutrition/Amino Acids/Dextrose/ Fat Emulsion Intravenous 1,400 ml @ 58.333 mls/ hr TPN CONT IV Last administered on 07/27/19at 21:41; Start 07/27/19 at 22:00; Stop 07/28/19 at 21:59; Status DC Sodium Chloride 1,000 ml @ 1,000 mls/hr Q1H PRN IV hypotension; Start 07/28/19 at 07:58; Stop 07/28/19 at 13:57; Status DC Albumin Human 200 ml @ 200 mls/hr 1X PRN PRN IV Hypotension Last administered on 07/28/19at 09:30; Start 07/28/19 at 08:00; Stop 07/28/19 at 13:59; Status DC Sodium Chloride 1,000 ml @ 400 mls/hr Q2H30M PRN IV PATENCY; Start 07/28/19 at 07:58; Stop 07/28/19 at 19:57; Status DC Info (PHARMACY MONITORING -- do not chart) 1 each PRN DAILY PRN MC SEE COMMENTS; Start 07/28/19 at 08:00; Status Cancel Info (PHARMACY MONITORING -- do not chart) 1 each PRN DAILY PRN MC SEE COMMENTS; Start 07/28/19 at 08:15; Status UNV Sodium Chloride 90 meq/Potassium Phosphate 5 mmol/ Magnesium Sulfate 12 meq/Calcium Gluconate 15 meq/ Multivitamins 10 ml/Chromium/ Copper/Manganese/ Seleni/Zn 0.5 ml/ Insulin Human Regular 30 unit/ Total Parenteral Nutrition/Amino Acids/Dextrose/ Fat Emulsion Intravenous 1,400 ml @ 58.333 mls/ hr TPN CONT IV Last administered on 07/28/19at 22:08; Start 07/28/19 at 22:00; Stop 07/29/19 at 21:59; Status DC Linezolid/Dextrose 300 ml @ 300 mls/hr Q12HR IV Last administered on 08/08/19at 20:40; Start 07/29/19 at 11:00; Stop 08/09/19 at 08:10; Status DC Sodium Chloride 90 meq/Potassium Phosphate 15 mmol/ Magnesium Sulfate 12 meq/Calcium Gluconate 15 meq/ Multivitamins 10 ml/Chromium/ Copper/Manganese/ Se dinorah/Zn 0.5 ml/ Insulin Human Regular 30 unit/ Total Parenteral Nutrition/Amino Acids/Dextrose/ Fat Emulsion Intravenous 1,400 ml @ 58.333 mls/ hr TPN CONT IV Last administered on 07/29/19at 21:49; Start 07/29/19 at 22:00; Stop 07/30/19 at 21:59; Status DC Sodium Chloride 90 meq/Potassium Phosphate 15 mmol/ Magnesium Sulfate 12 meq/Calcium Gluconate 15 meq/ Multivitamins 10 ml/Chromium/ Copper/Manganese/ Seleni/Zn 0.5 ml/ Insulin Human Regular 40 unit/ Total Parenteral Nutrition/Amino Acids/Dextrose/ Fat Emulsion Intravenous 1,400 ml @ 58.333 mls/ hr TPN CONT IV Last administered on 07/30/19at 21:21; Start 07/30/19 at 22:00; Stop 07/31/19 at 21:59; Status DC Sodium Chloride 1,000 ml @ 1,000 mls/hr Q1H PRN IV hypotension; Start 07/30/19 at 13:26; Stop 07/30/19 at 19:25; Status DC Albumin Human 200 ml @ 200 mls/hr 1X PRN PRN IV Hypotension Last administered on 07/30/19at 15:00; Start 07/30/19 at 13:30; Stop 07/30/19 at 19:29; Status DC Sodium Chloride (Normal Saline Flush) 10 ml 1X PRN PRN IV AP catheter pack; Start 07/30/19 at 13:30; Stop 07/31/19 at 13:29; Status DC Sodium Chloride (Normal Saline Flush) 10 ml 1X PRN PRN IV [employer] catheter pack; Start 07/30/19 at 13:30; Stop 07/31/19 at 13:29; Status DC Sodium Chloride 1,000 ml @ 400 mls/hr Q2H30M PRN IV PATENCY; Start 07/30/19 at 13:26; Stop 07/31/19 at 01:25; Status DC Info (PHARMACY MONITORING -- do not chart) 1 each PRN DAILY PRN MC SEE COMMENTS; Start 07/30/19 at 13:30; Stop 07/30/19 at 13:33; Status DC Info (PHARMACY MONITORING -- do not chart) 1 each PRN DAILY PRN MC SEE COMMENTS; Start 07/30/19 at 13:30; Stop 07/30/19 at 13:34; Status DC Sodium Chloride 90 meq/Potassium Phosphate 19 mmol/ Magnesium Sulfate 12 meq/Calcium Gluconate 15 meq/ Multivitamins 10 ml/Chromium/ Copper/Manganese/ Seleni/Zn 0.5 ml/ Insulin Human Regular 40 unit/ Total Parenteral Nutrition/Amino Acids/Dextrose/ Fat Emulsion Intravenous 1,400 ml @ 58.333 mls/ hr TPN CONT IV Last administered on 07/31/19at 21:54; Start 07/31/19 at 22:00; Stop 08/01/19 at 21:59; Status DC Sodium Chloride 1,000 ml @ 1,000 mls/hr Q1H PRN IV hypotension; Start 08/01/19 at 09:35; Stop 08/01/19 at 15:34; Status DC Albumin Human 200 ml @ 200 mls/hr 1X PRN PRN IV Hypotension; Start 08/01/19 at 09:45; Stop 08/01/19 at 15:44; Status DC Diphenhydramine HCl (Benadryl) 25 mg 1X PRN PRN IV ITCHING; Start 08/01/19 at 09:45; Stop 08/02/19 at 09:44; Status DC Diphenhydramine HCl (Benadryl) 25 mg 1X PRN PRN IV ITCHING; Start 08/01/19 at 09:45; Stop 08/02/19 at 09:44; Status DC Sodium Chloride 1,000 ml @ 400 mls/hr Q2H30M PRN IV PATENCY; Start 08/01/19 at 09:35; Stop 08/01/19 at 21:34; Status DC Info (PHARMACY MONITORING -- do not chart) 1 each PRN DAILY PRN MC SEE COMMENTS; Start 08/01/19 at 09:45; Status Cancel Sodium Chloride 100 meq/Potassium Phosphate 19 mmol/ Magnesium Sulfate 12 meq/Calcium Gluconate 15 meq/ Multivitamins 10 ml/Chromium/ Copper/Manganese/ Seleni/Zn 0.5 ml/ Insulin Human Regular 40 unit/ Potassium Chloride 20 meq/ Total Parenteral Nutrition/Amino Acids/Dextrose/ Fat Emulsion Intravenous 1,400 ml @ 58.333 mls/ hr TPN CONT IV Last administered on 08/01/19at 22:02; Start 08/01/19 at 22:00; Stop 08/02/19 at 21:59; Status DC Furosemide (Lasix) 40 mg 1X ONCE IVP Last administered on 08/01/19at 14:39; Start 08/01/19 at 14:30; Stop 08/01/19 at 14:31; Status DC Metronidazole 100 ml @ 100 mls/hr Q8HRS IV Last administered on 08/09/19at 06:04; Start 08/02/19 at 10:00; Stop 08/09/19 at 08:10; Status DC Sodium Chloride 1,000 ml @ 1,000 mls/hr Q1H PRN IV hypotension; Start 08/02/19 at 08:00; Stop 08/02/19 at 13:59; Status DC Albumin Human 200 ml @ 200 mls/hr 1X PRN PRN IV Hypotension; Start 08/02/19 at 08:00; Stop 08/02/19 at 13:59; Status DC Sodium Chloride 1,000 ml @ 400 mls/hr Q2H30M PRN IV PATENCY; Start 08/02/19 at 08:00; Stop 08/02/19 at 19:59; Status DC Info (PHARMACY MONITORING -- do not chart) 1 each PRN DAILY PRN MC SEE COMMENTS; Start 08/02/19 at 11:30; Status UNV Info (PHARMACY MONITORING -- do not chart) 1 each PRN DAILY PRN MC SEE COMMENTS; Start 08/02/19 at 11:30; Stop 08/04/19 at 12:13; Status DC Sodium Chloride 100 meq/Potassium Phosphate 19 mmol/ Magnesium Sulfate 12 meq/Calcium Gluconate 15 meq/ Multivitamins 10 ml/Chromium/ Copper/Manganese/ Seleni/Zn 0.5 ml/ Insulin Human Regular 40 unit/ Potassium Chloride 20 meq/ Total Parenteral Nutrition/Amino Acids/Dextrose/ Fat Emulsion Intravenous 1,400 ml @ 58.333 mls/ hr TPN CONT IV Last administered on 08/02/19at 21:52; Start 08/02/19 at 22:00; Stop 08/03/19 at 21:59; Status DC Sodium Chloride (Normal Saline Flush) 10 ml QSHIFT PRN IV AFTER MEDS AND BLOOD DRAWS; Start 08/02/19 at 15:00; Stop 08/30/19 at 11:27; Status DC Sodium Chloride (Normal Saline Flush) 10 ml PRN Q5MIN PRN IV AFTER MEDS AND BLOOD DRAWS; Start 08/02/19 at 15:00 Sodium Chloride (Normal Saline Flush) 20 ml PRN Q5MIN PRN IV AFTER MEDS AND BLOOD DRAWS; Start 08/02/19 at 15:00 Sodium Chloride 100 meq/Potassium Phosphate 19 mmol/ Magnesium Sulfate 12 meq/Calcium Gluconate 15 meq/ Multivitamins 10 ml/Chromium/ Copper/Manganese/ Seleni/Zn 0.5 ml/ Insulin Human Regular 40 unit/ Potassium Chloride 20 meq/ Total Parenteral Nutrition/Amino Acids/Dextrose/ Fat Emulsion Intravenous 1,400 ml @ 58.333 mls/ hr TPN CONT IV Last administered on 08/03/19at 21:20; Start 08/03/19 at 22:00; Stop 08/04/19 at 21:59; Status DC Lidocaine HCl (Buffered Lidocaine 1%) 3 ml STK-MED ONCE .ROUTE ; Start 08/03/19 at 13:16; Stop 08/03/19 at 13:16; Status DC Lidocaine HCl (Buffered Lidocaine 1%) 6 ml 1X ONCE INJ Last administered on 08/03/19at 13:45; Start 08/03/19 at 13:30; Stop 08/03/19 at 13:31; Status DC Albumin Human 100 ml @ 100 mls/hr 1X ONCE IV Last administered on 08/03/19at 15:41; Start 08/03/19 at 15:00; Stop 08/03/19 at 15:59; Status DC Albumin Human 50 ml @ 50 mls/hr 1X ONCE IV Last administered on 08/03/19at 15:00; Start 08/03/19 at 15:00; Stop 08/03/19 at 15:59; Status DC Info (PHARMACY MONITORING -- do not chart) 1 each PRN DAILY PRN MC SEE COMMENTS; Start 08/04/19 at 11:30; Status Cancel Info (PHARMACY MONITORING -- do not chart) 1 each PRN DAILY PRN MC SEE COMMENTS; Start 08/04/19 at 11:30; Status UNV Sodium Chloride 100 meq/Potassium Phosphate 10 mmol/ Magnesium Sulfate 12 meq/Calcium Gluconate 15 meq/ Multivitamins 10 ml/Chromium/ Copper/Manganese/ Seleni/Zn 0.5 ml/ Insulin Human Regular 35 unit/ Potassium Chloride 20 meq/ Total Parenteral Nutrition/Amino Acids/Dextrose/ Fat Emulsion Intravenous 1,400 ml @ 58.333 mls/ hr TPN CONT IV Last administered on 08/04/19at 22:10; Start 08/04/19 at 22:00; Stop 08/05/19 at 21:59; Status DC Sodium Chloride 100 meq/Potassium Phosphate 5 mmol/ Magnesium Sulfate 12 meq/Calcium Gluconate 15 meq/ Multivitamins 10 ml/Chromium/ Copper/Manganese/ Seleni/Zn 0.5 ml/ Insulin Human Regular 35 unit/ Potassium Chloride 20 meq/ Total Parenteral Nutrition/Amino Acids/Dextrose/ Fat Emulsion Intravenous 1,400 ml @ 58.333 mls/ hr TPN CONT IV Last administered on 08/05/19at 22:59; Start 08/05/19 at 22:00; Stop 08/06/19 at 21:59; Status DC Sodium Chloride 1,000 ml @ 1,000 mls/hr Q1H PRN IV hypotension; Start 08/06/19 at 08:27; Stop 08/06/19 at 14:26; Status DC Albumin Human 200 ml @ 200 mls/hr 1X PRN PRN IV Hypotension Last administered on 08/06/19at 09:18; Start 08/06/19 at 08:30; Stop 08/06/19 at 14:29; Status DC Sodium Chloride 1,000 ml @ 400 mls/hr Q2H30M PRN IV PATENCY; Start 08/06/19 at 08:27; Stop 08/06/19 at 20:26; Status DC Info (PHARMACY MONITORING -- do not chart) 1 each PRN DAILY PRN MC SEE COMMENTS; Start 08/06/19 at 08:30; Status Cancel Info (PHARMACY MONITORING -- do not chart) 1 each PRN DAILY PRN MC SEE COMMENTS; Start 08/06/19 at 08:30; Stop 08/14/19 at 13:10; Status DC Sodium Chloride 100 meq/Potassium Chloride 40 meq/ Magnesium Sulfate 15 meq/Calcium Gluconate 15 meq/ Multivitamins 10 ml/Chromium/ Copper/Manganese/ Seleni/Zn 0.5 ml/ Insulin Human Regular 35 unit/ Total Parenteral Nutrition/Amino Acids/Dextrose/ Fat Emulsion Intravenous 1,400 ml @ 58.333 mls/ hr TPN CONT IV Last administered on 08/06/19at 22:00; Start 08/06/19 at 22:00; Stop 08/07/19 at 21:59; Status DC Potassium Chloride/Water 100 ml @ 100 mls/hr 1X ONCE IV Last administered on 08/06/19at 17:28; Start 08/06/19 at 14:45; Stop 08/06/19 at 15:44; Status DC Sodium Chloride 100 meq/Potassium Chloride 40 meq/ Magnesium Sulfate 15 meq/Calcium Gluconate 15 meq/ Multivitamins 10 ml/Chromium/ Copper/Manganese/ Seleni/Zn 0.5 ml/ Insulin Human Regular 35 unit/ Total Parenteral Nutrition/Amino Acids/Dextrose/ Fat Emulsion Intravenous 1,400 ml @ 58.333 mls/ hr TPN CONT IV Last administered on 08/07/19at 22:46; Start 08/07/19 at 22:00; Stop 08/08/19 at 21:59; Status DC Sodium Chloride 100 meq/Potassium Chloride 40 meq/ Magnesium Sulfate 20 meq/Calcium Gluconate 15 meq/ Multivitamins 10 ml/Chromium/ Copper/Manganese/ Seleni/Zn 0.5 ml/ Insulin Human Regular 35 unit/ Total Parenteral Nutriti on/Amino Acids/Dextrose/ Fat Emulsion Intravenous 1,400 ml @ 58.333 mls/ hr TPN CONT IV Last administered on 08/08/19at 22:31; Start 08/08/19 at 22:00; Stop 08/09/19 at 21:59; Status DC Fentanyl Citrate (Fentanyl 2ml Vial) 50 mcg PRN Q2HR PRN IVP PAIN Last administered on 08/15/19at 13:32; Start 08/08/19 at 21:00; Stop 08/16/19 at 12:53; Status DC Fentanyl Citrate (Fentanyl 2ml Vial) 25 mcg PRN Q2HR PRN IVP PAIN; Start 08/08/19 at 21:00; Stop 08/16/19 at 12:54; Status DC Enoxaparin Sodium (Lovenox 100mg Syringe) 100 mg Q12HR SQ ; Start 08/09/19 at 21:00; Status UNV Amino Acids/ Glycerin/ Electrolytes 1,000 ml @ 75 mls/hr [id number] IV ; Start 08/08/19 at 21:15; Status UNV Sodium Chloride 1,000 ml @ 1,000 mls/hr Q1H PRN IV hypotension; Start 08/09/19 at 07:56; Stop 08/09/19 at 13:55; Status DC Albumin Human 200 ml @ 200 mls/hr 1X PRN PRN IV Hypotension Last administered on 08/09/19at 08:40; Start 08/09/19 at 08:00; Stop 08/09/19 at 13:59; Status DC Sodium Chloride 1,000 ml @ 400 mls/hr Q2H30M PRN IV PATENCY; Start 08/09/19 at 07:56; Stop 08/09/19 at 19:55; Status DC Info (PHARMACY MONITORING -- do not chart) 1 each PRN DAILY PRN MC SEE COMMENTS; Start 08/09/19 at 08:00; Status UNV Info (PHARMACY MONITORING -- do not chart) 1 each PRN DAILY PRN MC SEE COMMENTS; Start 08/09/19 at 08:00; Status UNV Daptomycin 430 mg/ Sodium Chloride 50 ml @ 100 mls/hr Q24H IV Last adminis tered on 08/09/19at 12:35; Start 08/09/19 at 09:00; Stop 08/09/19 at 12:49; Status DC Sodium Chloride 100 meq/Potassium Chloride 40 meq/ Magnesium Sulfate 20 meq/Calcium Gluconate 15 meq/ Multivitamins 10 ml/Chromium/ Copper/Manganese/ Seleni/Zn 0.5 ml/ Insulin Human Regular 35 unit/ Total Parenteral Nutrition/Amino Acids/Dextrose/ Fat Emulsion Intravenous 1,400 ml @ 58.333 mls/ hr TPN CONT IV Last administered on 08/09/19at 21:26; Start 08/09/19 at 22:00; Stop 08/10/19 at 21:59; Status DC Daptomycin 430 mg/ Sodium Chloride 50 ml @ 100 mls/hr Q48H IV ; Start 08/11/19 at 09:00; Stop 08/10/19 at 11:55; Status DC Sodium Chloride 100 meq/Potassium Chloride 40 meq/ Magnesium Sulfate 20 meq/Calcium Gluconate 15 meq/ Multivitamins 10 ml/Chromium/ Copper/Manganese/ Seleni/Zn 0.5 ml/ Insulin Human Regular 35 unit/ Total Parenteral Nutrition/Amino Acids/Dextrose/ Fat Emulsion Intravenous 1,400 ml @ 58.333 mls/ hr TPN CONT IV Last administered on 08/10/19at 22:27; Start 08/10/19 at 22:00; Stop 08/11/19 at 21:59; Status DC Daptomycin 430 mg/ Sodium Chloride 50 ml @ 100 mls/hr Q24H IV Last administered on 08/12/19at 15:07; Start 08/10/19 at 13:00; Stop 08/13/19 at 13:15; Status DC Sodium Chloride 100 meq/Potassium Chloride 40 meq/ Magnesium Sulfate 20 meq/Calcium Gluconate 10 meq/ Multivitamins 10 ml/Chromium/ Copper/Manganese/ Seleni/Zn 0.5 ml/ Insulin Human Regular 35 unit/ Total Parenteral Nutrition/Amino Acids/Dextrose/ Fat Emulsion Intravenous 1,400 ml @ 58.333 mls/ hr TPN CONT IV Last administered on 08/12/19at 00:06; Start 08/11/19 at 22:00; Stop 08/12/19 at 21:59; Status DC Alteplase, Recombinant (Cathflo For Central Catheter Clearance) 1 mg 1X ONCE INT CAT Last administered on 08/12/19at 11:44; Start 08/12/19 at 10:45; Stop 08/12/19 at 10:46; Status DC Ondansetron HCl (Zofran) 4 mg PRN Q6HRS PRN IV NAUSEA/VOMITING; Start 08/15/19 at 07:00; Stop 08/16/19 at 06:59; Status DC Fentanyl Citrate (Fentanyl 2ml Vial) 25 mcg PRN Q5MIN PRN IV MILD PAIN 1-3; Start 08/15/19 at 07:00; Stop 08/16/19 at 06:59; Status DC Fentanyl Citrate (Fentanyl 2ml Vial) 50 mcg PRN Q5MIN PRN IV MODERATE TO SEVERE PAIN Last administered on 08/15/19at 10:17; Start 08/15/19 at 07:00; Stop 08/16/19 at 06:59; Status DC Ringer's Solution 1,000 ml @ 30 mls/hr Q24H IV ; Start 08/15/19 at 07:00; Stop 08/15/19 at 18:59; Status DC Lidocaine HCl (Xylocaine-Mpf 1% 2ml Vial) 2 ml PRN 1X PRN ID PRIOR TO IV START; Start 08/15/19 at 07:00; Stop 08/16/19 at 06:59; Status DC Prochlorperazine Edisylate (Compazine) 5 mg PACU PRN PRN IV NAUSEA, MRX1; Start 08/15/19 at 07:00; Stop 08/16/19 at 06:59; Status DC Sodium Acetate 50 meq/Potassium Acetate 55 meq/ Magnesium Sulfate 20 meq/Calcium Gluconate 10 meq/ Multivitamins 10 ml/Chromium/ Copper/Manganese/ Seleni/Zn 0.5 ml/ Insulin Human Regular 35 unit/ Total Parenteral Nutrition/Amino Acids/Dextrose/ Fat Emulsion Intravenous 1,400 ml @ 58.333 mls/ hr TPN CONT IV ; Start 08/12/19 at 22:00; Stop 08/12/19 at 14:15; Status DC Sodium Acetate 50 meq/Potassium Acetate 55 meq/ Magnesium Sulfate 20 meq/Calcium Gluconate 10 meq/ Multivitamins 10 ml/Chromium/ Copper/Manganese/ Seleni/Zn 0.5 ml/ Insulin Human Regular 35 unit/ Total Parenteral Nutrition/Amino Acids/Dextrose/ Fat Emulsion Intravenous 1,800 ml @ 75 mls/hr TPN CONT IV Last administered on 08/12/19at 22:38; Start 08/12/19 at 22:00; Stop 08/13/19 at 21:59; Status DC Sodium Chloride 1,000 ml @ 1,000 mls/hr Q1H PRN IV hypotension; Start 08/12/19 at 15:31; Stop 08/12/19 at 21:30; Status DC Diphenhydramine HCl (Benadryl) 25 mg 1X PRN PRN IV ITCHING; Start 08/12/19 at 15:45; Stop 08/13/19 at 15:44; Status DC Diphenhydramine HCl (Benadryl) 25 mg 1X PRN PRN IV ITCHING; Start 08/12/19 at 15:45; Stop 08/13/19 at 15:44; Status DC Sodium Chloride 1,000 ml @ 400 mls/hr Q2H30M PRN IV PATENCY; Start 08/12/19 at 15:31; Stop 08/13/19 at 03:30; Status DC Info (PHARMACY MONITORING -- do not chart) 1 each PRN DAILY PRN MC SEE COMME NTS; Start 08/12/19 at 15:45; Stop 09/13/19 at 14:14; Status DC Sodium Acetate 50 meq/Potassium Acetate 55 meq/ Magnesium Sulfate 20 meq/Calcium Gluconate 10 meq/ Multivitamins 10 ml/Chromium/ Copper/Manganese/ Seleni/Zn 0.5 ml/ Insulin Human Regular 35 unit/ Total Parenteral Nutrition/Amino Acids/Dextrose/ Fat Emulsion Intravenous 1,800 ml @ 75 mls/hr TPN CONT IV Last administered on 08/13/19at 22:03; Start 08/13/19 at 22:00; Stop 08/14/19 at 21:59; Status DC Daptomycin 430 mg/ Sodium Chloride 50 ml @ 100 mls/hr Q24H IV Last administered on 08/18/19at 13:00; Start 08/13/19 at 13:00; Stop 08/18/19 at 20:58; Status DC Heparin Sodium (Porcine) 1000 unit/Sodium Chloride 1,001 ml @ 1,001 mls/hr 1X ONCE IRR ; Start 08/15/19 at 06:00; Stop 08/15/19 at 06:59; Status DC Potassium Acetate 55 meq/Magnesium Sulfate 20 meq/ Calcium Gluconate 10 meq/ Multivitamins 10 ml/Chromium/ Copper/Manganese/ Seleni/Zn 0.5 ml/ Insulin Human Regular 35 unit/ Total Parenteral Nutrition/Amino Acids/Dextrose/ Fat Emulsion Intravenous 1,920 ml @ 80 mls/hr TPN CONT IV Last administered on 08/14/19at 22:10; Start 08/14/19 at 22:00; Stop 08/15/19 at 21:59; Status DC Dexamethasone Sodium Phosphate (Decadron) 4 mg STK-MED ONCE .ROUTE ; Start 08/15/19 at 10:56; Stop 08/15/19 at 10:57; Status DC Ondansetron HCl (Zofran) 4 mg STK-MED ONCE .ROUTE ; Start 08/15/19 at 10:56; Stop 08/15/19 at 10:57; Status DC Rocuronium [place] (Zemuron) 50 mg STK-MED ONCE .ROUTE ; Start 08/15/19 at 10:56; Stop 08/15/19 at 10:57; Status DC Fentanyl Citrate (Fentanyl 2ml Vial) 100 mcg STK-MED ONCE .ROUTE ; Start 08/15/19 at 10:56; Stop 08/15/19 at 10:57; Status DC Bupivacaine HCl/ Epinephrine Bitart (Sensorcain-Epi 0.5%-1:119729 Mpf) 30 ml STK-MED ONCE .ROUTE Last administered on 08/15/19at 12:01; Start 08/15/19 at 10:58; Stop 08/15/19 at 10:58; Status DC Cellulose (Surgicel Hemostat 2x14) 1 each STK-MED ONCE .ROUTE ; Start 08/15/19 at 10:58; Stop 08/15/19 at 10:59; Status DC Iohexol (Omnipaque 300 Mg/ml) 50 ml STK-MED ONCE .ROUTE ; Start 08/15/19 at 10: 58; Stop 08/15/19 at 10:59; Status DC Cellulose (Surgicel Hemostat 4x8) 1 each STK-MED ONCE .ROUTE ; Start 08/15/19 at 10:58; Stop 08/15/19 at 10:59; Status DC Bisacodyl (Dulcolax Supp) 10 mg STK-MED ONCE .ROUTE ; Start 08/15/19 at 10:59; Stop 08/15/19 at 10:59; Status DC Heparin Sodium (Porcine) 1000 unit/Sodium Chloride 1,001 ml @ 1,001 mls/hr 1X ONCE IRR ; Start 08/15/19 at 12:00; Stop 08/15/19 at 12:59; Status DC Propofol 20 ml @ As Directed STK-MED ONCE IV ; Start 08/15/19 at 11:05; Stop 08/15/19 at 11:05; Status DC Sevoflurane (Ultane) 90 ml STK-MED ONCE IH ; Start 08/15/19 at 11:05; Stop 08/15/19 at 11:05; Status DC Sevoflurane (Ultane) 60 ml STK-MED ONCE IH ; Start 08/15/19 at 12:26; Stop 08/15/19 at 12:27; Status DC Propofol 20 ml @ As Directed STK-MED ONCE IV ; Start 08/15/19 at 12:26; Stop 08/15/19 at 12:27; Status DC Phenylephrine HCl (PHENYLEPHRINE in 0.9% NACL PF) 1 mg STK-MED ONCE IV ; Start 08/15/19 at 12:34; Stop 08/15/19 at 12:34; Status DC Heparin Sodium (Porcine) (Heparin Sodium) 5,000 unit Q12HR SQ Last administered on 08/24/19at 20:57; Start 08/15/19 at 21:00; Stop 08/25/19 at 09:59; Status DC Sodium Chloride (Normal Saline Flush) 3 ml QSHIFT PRN IV AFTER MEDS AND BLOOD DRAWS; Start 08/15/19 at 13:45 Naloxone HCl (Narcan) 0.4 mg PRN Q2MIN PRN IV SEE INSTRUCTIONS Last administered on 09/24/19at 15:15; Start 08/15/19 at 13:45 Sodium Chloride 1,000 ml @ 25 mls/hr Q24H IV Last administered on 09/13/19at 13:37; Start 08/15/19 at 13:37; Stop 09/16/19 at 13:09; Status DC Naloxone HCl (Narcan) 0.4 mg PRN Q2MIN PRN IV SEE INSTRUCTIONS; Start 08/15/19 at 14:30; Status UNV Sodium Chloride 1,000 ml @ 25 mls/hr Q24H IV ; Start 08/15/19 at 14:30; Status UNV Hydromorphone HCl 30 ml @ 0 mls/hr CONT PRN PRN IV PER PROTOCOL Last administered on 08/20/19at 16:08; Start 08/15/19 at 14:30; Stop 08/22/19 at 08:55; Status DC Potassium Acetate 55 meq/Magnesium Sulfate 20 meq/ Calcium Gluconate 10 meq/ Multivitamins 10 ml/Chromium/ Copper/Manganese/ Seleni/Zn 0.5 ml/ Insulin Human Regular 35 unit/ Total Parenteral Nutrition/Amino Acids/Dextrose/ Fat Emulsion Intravenous 1,920 ml @ 80 mls/hr TPN CONT IV Last administered on 08/15/19at 22:01; Start 08/15/19 at 22:00; Stop 08/16/19 at 21:59; Status DC Bumetanide (Bumex) 2 mg [id number] IV Last administered on 08/19/19at 13:50; Start 08/16/19 at 14:00; Stop 08/20/19 at 14:10; Status DC Meropenem 1 gm/ Sodium Chloride 100 ml @ 200 mls/hr Q8HRS IV Last administered on 09/09/19at 05:53; Start 08/16/19 at 14:00; Stop 09/09/19 at 09:31; Status DC Potassium Acetate 55 meq/Magnesium Sulfate 20 meq/ Calcium Gluconate 10 meq/ Multivitamins 10 ml/Chromium/ Copper/Manganese/ Seleni/Zn 0.5 ml/ Insulin Human Regular 35 unit/ Total Parenteral Nutrition/Amino Acids/Dextrose/ Fat Emulsion Intravenous 1,920 ml @ 80 mls/hr TPN CONT IV Last administered on 08/16/19at 22:02; Start 08/16/19 at 22:00; Stop 08/17/19 at 21:59; Status DC Hydromorphone HCl (Dilaudid Standard ACCESS TECH) 12 mg STK-MED ONCE IV ; Start 08/15/19 at 14:35; Stop 08/16/19 at 13:53; Status DC Artificial Tears (Artificial Tears) 1 drop PRN Q15MIN PRN OU DRY EYE Last administered on 10/11/19at 21:17; Start 08/17/19 at 05:30 Hydromorphone HCl (Dilaudid Standard ACCESS TECH) 12 mg STK-MED ONCE IV ; Start 08/16/19 at 12:05; Stop 08/17/19 at 09:15; Status DC Potassium Acetate 65 meq/Magnesium Sulfate 20 meq/ Calcium Gluconate 10 meq/ Multivitamins 10 ml/Chromium/ Copper/Manganese/ Seleni/Zn 0.5 ml/ Insulin Human Regular 30 unit/ Total Parenteral Nutrition/Amino Acids/Dextrose/ Fat Emulsion Intravenous 1,920 ml @ 80 mls/hr TPN CONT IV Last administered on 08/17/19at 22:22; Start 08/17/19 at 22:00; Stop 08/18/19 at 21:59; Status DC Cyclobenzaprine HCl (Flexeril) 10 mg PRN Q6HRS PRN PO MUSCLE SPASMS; Start 08/18/19 at 10:45 Potassium Acetate 55 meq/Magnesium Sulfate 20 meq/ Calcium Gluconate 10 meq/ Multivitamins 10 ml/Chromium/ Copper/Manganese/ Seleni/Zn 0.5 ml/ Insulin Human Regular 30 unit/ Total Parenteral Nutrition/Amino Acids/Dextrose/ Fat Emulsion Intravenous 1,920 ml @ 80 mls/hr TPN CONT IV Last administered on 08/19/19at 01:00; Start 08/18/19 at 22:00; Stop 08/19/19 at 21:59; Status DC Magnesium Sulfate 50 ml @ 25 mls/hr 1X ONCE IV Last administered on 08/18/19at 17:18; Start 08/18/19 at 12:45; Stop 08/18/19 at 14:44; Status DC Potassium Chloride/Water 100 ml @ 100 mls/hr 1X ONCE IV Last administered on 08/19/19at 11:27; Start 08/19/19 at 12:00; Stop 08/19/19 at 12:59; Status DC Hydromorphone HCl (Dilaudid Standard ACCESS TECH) 12 mg STK-MED ONCE IV ; Start 08/17/19 at 10:50; Stop 08/19/19 at 11:02; Status DC Hydromorphone HCl (Dilaudid Standard ACCESS TECH) 12 mg STK-MED ONCE IV ; Start 08/18/19 at 13:47; Stop 08/19/19 at 11:03; Status DC Potassium Acetate 30 meq/Magnesium Sulfate 20 meq/ Calcium Gluconate 10 meq/ Multivitamins 10 ml/Chromium/ Copper/Manganese/ Seleni/Zn 0.5 ml/ Insulin Human Regular 30 unit/ Potassium Chloride 30 meq/ Total Parenteral Nutrition/Amino Acids/Dextrose/ Fat Emulsion Intravenous 1,920 ml @ 80 mls/hr TPN CONT IV Last administered on 08/19/19at 22:34; Start 08/19/19 at 22:00; Stop 08/20/19 at 21:59; Status DC Potassium Chloride/Water 100 ml @ 100 mls/hr Q1H IV Last administered on 08/20/19at 13:05; Start 08/20/19 at 07:00; Stop 08/20/19 at 10:59; Status DC Magnesium Sulfate 50 ml @ 25 mls/hr 1X ONCE IV Last administered on 08/20/19at 10:34; Start 08/20/19 at 10:30; Stop 08/20/19 at 12:29; Status DC Potassium Chloride 75 meq/ Magnesium Sulfate 20 meq/Calcium Gluconate 10 meq/ Multivitamins 10 ml/Chromium/ Copper/Manganese/ Seleni/Zn 0.5 ml/ Insulin Human Regular 30 unit/ Total Parenteral Nutrition/Amino Acids/Dextrose/ Fat Emulsion Intravenous 1,920 ml @ 80 mls/hr TPN CONT IV Last administered on 08/20/19at 21:51; Start 08/20/19 at 22:00; Stop 08/21/19 at 22:00; Status DC Potassium Chloride 75 meq/ Magnesium Sulfate 20 meq/Calcium Gluconate 10 meq/ Multivitamins 10 ml/Chromium/ Copper/Manganese/ Seleni/Zn 0.5 ml/ Insulin Human Regular 25 unit/ Total Parenteral Nutrition/Amino Acids/Dextrose/ Fat Emulsion Intravenous 1,920 ml @ 80 mls/hr TPN CONT IV Last administered on 08/21/19at 22:04; Start 08/21/19 at 22:00; Stop 08/22/19 at 21:59; Status DC Hydromorphone HCl (Dilaudid) 0.4 mg PRN Q4HRS PRN IVP PAIN Last administered on 08/22/19at 10:57; Start 08/22/19 at 09:00; Stop 08/22/19 at 18:59; Status DC Micafungin Sodium 100 mg/Dextrose 100 ml @ 100 mls/hr Q24H IV Last administered on 09/13/19at 12:17; Start 08/22/19 at 11:00; Stop 09/14/19 at 09:59; Status DC Daptomycin 485 mg/ Sodium Chloride 50 ml @ 100 mls/hr Q24H IV Last administered on 08/29/19at 13:10; Start 08/22/19 at 11:00; Stop 08/30/19 at 07:44; Status DC Potassium Chloride 75 meq/ Magnesium Sulfate 15 meq/Calcium Gluconate 8 meq/ Multivitamins 10 ml/Chromium/ Copper/Manganese/ Seleni/Zn 0.5 ml/ Insulin Human Regular 25 unit/ Total Parenteral Nutrition/Amino Acids/Dextrose/ Fat Emulsion Intravenous 1,920 ml @ 80 mls/hr TPN CONT IV Last administered on 08/22/19at 23:08; Start 08/22/19 at 22:00; Stop 08/23/19 at 21:59; Status DC Haloperidol Lactate (Haldol Inj) 3 mg 1X ONCE IVP Last administered on 08/22/19at 14:37; Start 08/22/19 at 14:30; Stop 08/22/19 at 14:31; Status DC Hydromorphone HCl (Dilaudid) 1 mg PRN Q4HRS PRN IVP PAIN Last administered on 09/05/19at 06:25; Start 08/22/19 at 19:00; Stop 09/05/19 at 17:10; Status DC Potassium Chloride 75 meq/ Magnesium Sulfate 15 meq/Calcium Gluconate 8 meq/ Multivitamins 10 ml/Chromium/ Copper/Manganese/ Seleni/Zn 0.5 ml/ Insulin Human Regular 20 unit/ Total Parenteral Nutrition/Amino Acids/Dextrose/ Fat Emulsion Intravenous 1,920 ml @ 80 mls/hr TPN CONT IV Last administered on 08/23/19at 22:10; Start 08/23/19 at 22:00; Stop 08/24/19 at 21:59; Status DC Lidocaine HCl (Buffered Lidocaine 1%) 3 ml STK-MED ONCE .ROUTE ; Start 08/24/19 at 11:31; Stop 08/24/19 at 11:31; Status DC Lidocaine HCl (Buffered Lidocaine 1%) 3 ml STK-MED ONCE .ROUTE ; Start 08/24/19 at 12:28; Stop 08/24/19 at 12:29; Status DC Lidocaine HCl (Buffered Lidocaine 1%) 6 ml 1X ONCE INJ Last administered on 08/24/19at 12:53; Start 08/24/19 at 12:45; Stop 08/24/19 at 12:46; Status DC Potassium Chloride 75 meq/ Magnesium Sulfate 15 meq/Calcium Gluconate 8 meq/ Multivitamins 10 ml/Chromium/ Copper/Manganese/ Seleni/Zn 0.5 ml/ Insulin Human Regular 20 unit/ Total Parenteral Nutrition/Amino Acids/Dextrose/ Fat Emulsion Intravenous 1,920 ml @ 80 mls/hr TPN CONT IV Last administered on 08/24/19at 22:00; Start 08/24/19 at 22:00; Stop 08/25/19 at 21:59; Status DC Potassium Chloride 75 meq/ Magnesium Sulfate 15 meq/Calcium Gluconate 8 meq/ Multivitamins 10 ml/Chromium/ Copper/Manganese/ Seleni/Zn 0.5 ml/ Insulin Human Regular 15 unit/ Total Parenteral Nutrition/Amino Acids/Dextrose/ Fat Emulsion Intravenous 1,920 ml @ 80 mls/hr TPN CONT IV Last administered on 08/25/19at 22:28; Start 08/25/19 at 22:00; Stop 08/26/19 at 21:59; Status DC Vecuronium [place] (Norcuron Bolus) 6 mg PRN Q6HRS PRN IV VENT ASYNCHRONY; Start 08/25/19 at 19:15; Stop 08/25/19 at 19:35; Status DC Bumetanide (Bumex) 2 mg 1X ONCE IV Last administered on 08/25/19at 22:09; Start 08/25/19 at 19:45; Stop 08/25/19 at 19:46; Status DC Lidocaine HCl (Buffered Lidocaine 1%) 3 ml STK-MED ONCE .ROUTE ; Start 08/26/19 at 07:59; Stop 08/26/19 at 07:59; Status DC Midazolam HCl (Versed) 5 mg STK-MED ONCE .ROUTE ; Start 08/26/19 at 08:36; Stop 08/26/19 at 08:36; Status DC Fentanyl Citrate (Fentanyl 5ml Vial) 250 mcg STK-MED ONCE .ROUTE ; Start 08/26/19 at 08:36; Stop 08/26/19 at 08:37; Status DC Lidocaine HCl (Buffered Lidocaine 1%) 3 ml 1X ONCE IJ Last administered on 08/26/19at 09:30; Start 08/26/19 at 09:15; Stop 08/26/19 at 09:16; Status DC Midazolam HCl (Versed) 5 mg 1X ONCE IV Last administered on 08/26/19at 09:30; Start 08/26/19 at 09:15; Stop 08/26/19 at 09:16; Status DC Fentanyl Citrate (Fentanyl 5ml Vial) 250 mcg 1X ONCE IV Last administered on 08/26/19at 09:30; Start 08/26/19 at 09:15; Stop 08/26/19 at 09:16; Status DC Bumetanide (Bumex) 2 mg DAILY IV Last administered on 09/05/19at 08:07; Start 08/26/19 at 10:00; Stop 09/05/19 at 17:15; Status DC Potassium Chloride 75 meq/ Magnesium Sulfate 15 meq/ Multivitamins 10 ml/Chromium/ Copper/Manganese/ Seleni/Zn 0.5 ml/ Insulin Human Regular 15 unit/ Total Parenteral Nutrition/Amino Acids/Dextrose/ Fat Emulsion Intravenous 1,920 ml @ 80 mls/hr TPN CONT IV Last administered on 08/26/19at 21:59; Start 08/26/19 at 22:00; Stop 08/27/19 at 21:59; Status DC Metoclopramide HCl (Reglan Vial) 10 mg PRN Q3HRS PRN IVP NAUSEA/VOMITING-3rd c hoice Last administered on 09/01/19at 04:25; Start 08/27/19 at 16:45 Potassium Chloride 75 meq/ Magnesium Sulfate 15 meq/ Multivitamins 10 ml/Chromium/ Copper/Manganese/ Seleni/Zn 0.5 ml/ Insulin Human Regular 15 unit/ Total Parenteral Nutrition/Amino Acids/Dextrose/ Fat Emulsion Intravenous 1,920 ml @ 80 mls/hr TPN CONT IV Last administered on 08/27/19at 22:41; Start 08/27/19 at 22:00; Stop 08/28/19 at 21:59; Status DC Magnesium Sulfate 50 ml @ 25 mls/hr 1X ONCE IV Last administered on 08/28/19at 10:44; Start 08/28/19 at 09:00; Stop 08/28/19 at 10:59; Status DC Potassium Chloride/Water 100 ml @ 100 mls/hr 1X ONCE IV Last administered on 08/28/19at 09:37; Start 08/28/19 at 09:00; Stop 08/28/19 at 09:59; Status DC Duloxetine HCl (Cymbalta) 30 mg DAILY PO Last administered on 08/29/19at 09:48; Start 08/28/19 at 14:00; Stop 08/31/19 at 10:25; Status DC Potassium Chloride 80 meq/ Magnesium Sulfate 20 meq/ Multivitamins 10 ml/Chromium/ Copper/Manganese/ Seleni/Zn 0.5 ml/ Insulin Human Regular 15 unit/ Total Parenteral Nutrition/Amino Acids/Dextrose/ Fat Emulsion Intravenous 1,920 ml @ 80 mls/hr TPN CONT IV Last administered on 08/28/19at 21:42; Start 08/28/19 at 22:00; Stop 08/29/19 at 21:59; Status DC Potassium Chloride 80 meq/ Magnesium Sulfate 20 meq/ Multivitamins 10 ml/Chromium/ Copper/Manganese/ Seleni/Zn 0.5 ml/ Insulin Human Regular 15 unit/ Total Parenteral Nutrition/Amino Acids/Dextrose/ Fat Emulsion Intravenous 1,920 ml @ 80 mls/hr TPN CONT IV Last administered on 08/29/19at 22:20; Start 08/29/19 at 22:00; Stop 08/30/19 at 21:59; Status DC Lidocaine HCl (Buffered Lidocaine 1%) 3 ml STK-MED ONCE .ROUTE ; Start 08/30/19 at 09:54; Stop 08/30/19 at 09:55; Status DC Hydromorphone HCl (Dilaudid Standard ACCESS TECH) 12 mg STK-MED ONCE IV ; Start 08/19/19 at 15:50; Stop 08/30/19 at 11:24; Status DC Potassium Chloride 80 meq/ Magnesium Sulfate 20 meq/ Multivitamins 10 ml/Chromium/ Copper/Manganese/ Seleni/Zn 0.5 ml/ Insulin Human Regular 15 unit/ Total Parenteral Nutrition/Amino Acids/Dextrose/ Fat Emulsion Intravenous 1,920 ml @ 80 mls/hr TPN CONT IV Last administered on 08/30/19at 21:40; Start 08/30/19 at 22:00; Stop 08/31/19 at 21:59; Status DC Lidocaine HCl (Buffered Lidocaine 1%) 6 ml 1X ONCE INJ Last administered on 08/30/19at 14:15; Start 08/30/19 at 14:15; Stop 08/30/19 at 14:16; Status DC Potassium Chloride 80 meq/ Magnesium Sulfate 20 meq/ Multivitamins 10 ml/Chromium/ Copper/Manganese/ Seleni/Zn 1 ml/ Insulin Human Regular 15 unit/ Total Parenteral Nutrition/Amino Acids/Dextrose/ Fat Emulsion Intravenous 1,920 ml @ 80 mls/hr TPN CONT IV Last administered on 08/31/19at 22:04; Start 08/31/19 at 22:00; Stop 09/01/19 at 21:59; Status DC Potassium Chloride/Water 100 ml @ 100 mls/hr 1X ONCE IV Last administered on 09/01/19at 11:34; Start 09/01/19 at 11:00; Stop 09/01/19 at 11:59; Status DC Potassium Chloride 90 meq/ Magnesium Sulfate 20 meq/ Multivitamins 10 ml/Chromium/ Copper/Manganese/ Seleni/Zn 1 ml/ Insulin Human Regular 15 unit/ Total Parenteral Nutrition/Amino Acids/Dextrose/ Fat Emulsion Intravenous 1,920 ml @ 80 mls/hr TPN CONT IV Last administered on 09/01/19at 22:57; Start 09/01/19 at 22:00; Stop 09/02/19 at 21:59; Status DC Potassium Chloride 90 meq/ Magnesium Sulfate 20 meq/ Multivitamins 10 ml/Chromium/ Copper/Manganese/ Seleni/Zn 1 ml/ Insulin Human Regular 15 unit/ Total Parenteral Nutrition/Amino Acids/Dextrose/ Fat Emulsion Intravenous 1,920 ml @ 80 mls/hr TPN CONT IV Last administered on 09/02/19at 22:48; Start 09/02/19 at 22:00; Stop 09/03/19 at 21:59; Status DC Potassium Chloride 90 meq/ Magnesium Sulfate 20 meq/ Multivitamins 10 ml/Chromium/ Copper/Manganese/ Seleni/Zn 1 ml/ Insulin Human Regular 15 unit/ Total Parenteral Nutrition/Amino Acids/Dextrose/ Fat Emulsion Intravenous 1,890 ml @ 78.75 mls/ hr TPN CONT IV Last administered on 09/03/19at 22:15; Start 09/03/19 at 22:00; Stop 09/04/19 at 21:59; Status DC Linezolid/Dextrose 300 ml @ 300 mls/hr Q12HR IV Last administered on 09/06/19at 21:08; Start 09/04/19 at 09:00; Stop 09/07/19 at 08:11; Status DC Daptomycin 450 mg/ Sodium Chloride 50 ml @ 100 mls/hr Q24H IV Last administered on 09/07/19at 09:25; Start 09/04/19 at 09:00; Stop 09/08/19 at 0 8:30; Status DC Potassium Chloride 90 meq/ Magnesium Sulfate 20 meq/ Multivitamins 10 ml/Chromium/ Copper/Manganese/ Seleni/Zn 1 ml/ Insulin Human Regular 15 unit/ Total Parenteral Nutrition/Amino Acids/Dextrose/ Fat Emulsion Intravenous 1,890 ml @ 78.75 mls/ hr TPN CONT IV Last administered on 09/04/19at 21:34; Start 09/04/19 at 22:00; Stop 09/05/19 at 21:59; Status DC Lorazepam (Ativan Inj) 2 mg STK-MED ONCE .ROUTE ; Start 09/04/19 at 14:58; Stop 09/04/19 at 14:58; Status DC Metoprolol Tartrate (Lopressor Vial) 5 mg 1X ONCE IVP Last administered on 09/04/19at 15:31; Start 09/04/19 at 15:15; Stop 09/04/19 at 15:16; Status DC Lorazepam (Ativan Inj) 2 mg 1X ONCE IVP Last administered on 09/04/19at 15:30; Start 09/04/19 at 15:15; Stop 09/04/19 at 15:16; Status DC Enoxaparin Sodium (Lovenox 40mg Syringe) 40 mg Q24H SQ Last administered on 09/23/19at 17:44; Start 09/04/19 at 17:00; Stop 09/25/19 at 06:50; Status DC Lorazepam (Ativan Inj) 1 mg PRN Q4HRS PRN IVP ANXIETY / AGITATION MILD-MOD Last administered on 09/18/19at 15:55; Start 09/04/19 at 19:15; Stop 09/20/19 at 11:45; Status DC Lorazepam (Ativan Inj) 2 mg PRN Q4HRS PRN IVP ANXIETY / AGITATION SEVERE Last administered on 09/19/19at 07:55; Start 09/04/19 at 19:15; Stop 09/20/19 at 11:45; Status DC Fentanyl Citrate (Fentanyl 2ml Vial) 50 mcg PRN Q4HRS PRN IVP SEVERE PAIN Last administered on 10/01/19at 05:15; Start 09/05/19 at 13:15; Stop 10/02/19 at 09:29; Status DC Fentanyl Citrate (Fentanyl 2ml Vial) 25 mcg PRN Q4HRS PRN IVP MODERATE PAIN Last administered on 10/01/19at 00:27; Start 09/05/19 at 13:15; Stop 10/02/19 at 09:30; Status DC Potassium Chloride 90 meq/ Magnesium Sulfate 20 meq/ Multivitamins 10 ml/Chromium/ Copper/Manganese/ Seleni/Zn 1 ml/ Insulin Human Regular 15 unit/ Total Parenteral Nutrition/Amino Acids/Dextrose/ Fat Emulsion Intravenous 1,890 ml @ 78.75 mls/ hr TPN CONT IV Last administered on 09/05/19at 22:18; Start 09/05/19 at 22:00; Stop 09/06/19 at 21:59; Status DC Furosemide (Lasix) 40 mg 1X ONCE IVP Last administered on 09/05/19at 21:51; Start 09/05/19 at 21:45; Stop 09/05/19 at 21:48; Status DC Albumin Human 100 ml @ 100 mls/hr 1X PRN PRN IV SEE COMMENTS; Start 09/06/19 at 01:30 Furosemide (Lasix) 40 mg [id number] IVP Last administered on 09/21/19at 08:04; Start 09/06/19 at 14:00; Stop 09/21/19 at 13:07; Status DC Potassium Chloride 90 meq/ Magnesium Sulfate 20 meq/ Multivitamins 10 ml/Chromium/ Copper/Manganese/ Seleni/Zn 1 ml/ Insulin Human Regular 15 unit/ Total Parenteral Nutrition/Amino Acids/Dextrose/ Fat Emulsion Intravenous 1,800 ml @ 75 mls/hr TPN CONT IV Last administered on 09/06/19at 22:31; Start 09/06/19 at 22:00; Stop 09/07/19 at 21:59; Status DC Potassium Chloride 90 meq/ Magnesium Sulfate 20 meq/ Multivitamins 10 ml/Chromium/ Copper/Manganese/ Seleni/Zn 1 ml/ Insulin Human Regular 15 unit/ Total Parenteral Nutrition/Amino Acids/Dextrose/ Fat Emulsion Intravenous 1,800 ml @ 75 mls/hr TPN CONT IV Last administered on 09/07/19at 22:28; Start 09/07/19 at 22:00; Stop 09/08/19 at 21:59; Status DC Potassium Chloride 110 meq/ Magnesium Sulfate 20 meq/ Multivitamins 10 ml/Chromium/ Copper/Manganese/ Seleni/Zn 1 ml/ Insulin Human Regular 15 unit/ Total Parenteral Nutrition/Amino Acids/Dextrose/ Fat Emulsion Intravenous 1,800 ml @ 75 mls/hr TPN CONT IV Last administered on 09/08/19at 22:01; Start 09/08/19 at 22:00; Stop 09/09/19 at 21:59; Status DC Saliva Substitute (Biotene Moisturizing Mouth) 2 spray PRN Q15MIN PRN PO DRY MOUTH; Start 09/08/19 at 11:00 Potassium Chloride 110 meq/ Magnesium Sulfate 20 meq/ Multivitamins 10 ml/Chromium/ Copper/Manganese/ Seleni/Zn 1 ml/ Insulin Human Regular 15 unit/ Total Parenteral Nutrition/Amino Acids/Dextrose/ Fat Emulsion Intravenous 1,800 ml @ 75 mls/hr TPN CONT IV Last administered on 09/09/19at 22:21; Start 09/09/19 at 22:00; Stop 09/10/19 at 21:59; Status DC Potassium Chloride 110 meq/ Magnesium Sulfate 20 meq/ Multivitamins 10 ml/Chromium/ Copper/Manganese/ Seleni/Zn 1 ml/ Insulin Human Regular 15 unit/ Total Parenteral Nutrition/Amino Acids/Dextrose/ Fat Emulsion Intravenous 1,800 ml @ 75 mls/hr TPN CONT IV Last administered on 09/10/19at 22:04; Start 09/10/19 at 22:00; Stop 09/11/19 at 21:59; Status DC Potassium Chloride 110 meq/ Magnesium Sulfate 20 meq/ Multivitamins 10 ml/Chromium/ Copper/Manganese/ Seleni/Zn 1 ml/ Insulin Human Regular 15 unit/ Total Parenteral Nutrition/Amino Acids/Dextrose/ Fat Emulsion Intravenous 1,800 ml @ 75 mls/hr TPN CONT IV Last administered on 09/11/19at 22:48; Start 09/11/19 at 22:00; Stop 09/12/19 at 21:59; Status DC Potassium Chloride 70 meq/ Magnesium Sulfate 20 meq/ Multivitamins 10 ml/Chromium/ Copper/Manganese/ Seleni/Zn 1 ml/ Insulin Human Regular 15 unit/ Total Parenteral Nutrition/Amino Acids/Dextrose/ Fat Emulsion Intravenous 1,800 ml @ 75 mls/hr TPN CONT IV Last administered on 09/12/19at 21:39; Start 09/12/19 at 22:00; Stop 09/13/19 at 21:59; Status DC Meropenem 500 mg/ Sodium Chloride 50 ml @ 100 mls/hr Q6HRS IV Last administered on 09/14/19at 06:02; Start 09/12/19 at 18:00; Stop 09/14/19 at 09:59; Status DC Barium Sulfate (Varibar Thin Liquid Apple) 148 gm 1X ONCE PO ; Start 09/13/19 at 11:45; Stop 09/13/19 at 11:49; Status DC Potassium Chloride 70 meq/ Magnesium Sulfate 20 meq/ Multivitamins 10 ml/Chromium/ Copper/Manganese/ Seleni/Zn 1 ml/ Insulin Human Regular 15 unit/ Total Parenteral Nutrition/Amino Acids/Dextrose/ Fat Emulsion Intravenous 1,800 ml @ 75 mls/hr TPN CONT IV Last administered on 09/13/19at 22:27; Start 09/13/19 at 22:00; Stop 09/14/19 at 21:59; Status DC Piperacillin Sod/ Tazobactam Sod 3.375 gm/Sodium Chloride 50 ml @ 100 mls/hr Q6HRS IV Last administered on 09/22/19at 06:10; Start 09/14/19 at 12:00; Stop 09/22/19 at 07:26; Status DC Potassium Chloride 70 meq/ Magnesium Sulfate 20 meq/ Multivitamins 10 ml/Chromium/ Copper/Manganese/ Seleni/Zn 1 ml/ Insulin Human Regular 15 unit/ Total Parenteral Nutrition/Amino Acids/Dextrose/ Fat Emulsion Intravenous 1,800 ml @ 75 mls/hr TPN CONT IV Last administered on 09/14/19at 22:03; Start 09/14/19 at 22:00; Stop 09/15/19 at 21:59; Status DC Potassium Chloride 70 meq/ Magnesium Sulfate 20 meq/ Multivitamins 10 ml/Chromium/ Copper/Manganese/ Seleni/Zn 1 ml/ Insulin Human Regular 15 unit/ Total Parenteral Nutrition/Amino Acids/Dextrose/ Fat Emulsion Intravenous 1,800 ml @ 75 mls/hr TPN CONT IV Last administered on 09/15/19at 22:33; Start 09/15/19 at 22:00; Stop 09/16/19 at 21:59; Status DC Potassium Chloride 70 meq/ Magnesium Sulfate 20 meq/ Multivitamins 10 ml/Chromium/ Copper/Manganese/ Seleni/Zn 1 ml/ Insulin Human Regular 15 unit/ Total Parenteral Nutrition/Amino Acids/Dextrose/ Fat Emulsion Intravenous 1,800 ml @ 75 mls/hr TPN CONT IV Last administered on 09/16/19at 23:13; Start 09/16/19 at 22:00; Stop 09/17/19 at 21:59; Status DC Potassium Chloride 80 meq/ Magnesium Sulfate 20 meq/ Multivitamins 10 ml /Chromium/ Copper/Manganese/ Seleni/Zn 1 ml/ Insulin Human Regular 15 unit/ Total Parenteral Nutrition/Amino Acids/Dextrose/ Fat Emulsion Intravenous 1,800 ml @ 75 mls/hr TPN CONT IV Last administered on 09/17/19at 22:30; Start 09/17/19 at 22:00; Stop 09/18/19 at 21:59; Status DC Potassium Chloride 80 meq/ Magnesium Sulfate 20 meq/ Multivitamins 10 ml/Chromium/ Copper/Manganese/ Seleni/Zn 1 ml/ Insulin Human Regular 15 unit/ Total Parenteral Nutrition/Amino Acids/Dextrose/ Fat Emulsion Intravenous 1,800 ml @ 75 mls/hr TPN CONT IV Last administered on 09/18/19at 21:54; Start 09/18/19 at 22:00; Stop 09/19/19 at 21:59; Status DC Potassium Chloride/Water 100 ml @ 100 mls/hr 1X ONCE IV Last administered on 09/19/19at 10:15; Start 09/19/19 at 10:00; Stop 09/19/19 at 10:59; Status DC Potassium Chloride 90 meq/ Magnesium Sulfate 20 meq/ Multivitamins 10 ml/Chromium/ Copper/Manganese/ Seleni/Zn 1 ml/ Insulin Human Regular 20 unit/ Total Parenteral Nutrition/Amino Acids/Dextrose/ Fat Emulsion Intravenous 1,800 ml @ 75 mls/hr TPN CONT IV Last administered on 09/19/19at 22:28; Start 09/19/19 at 22:00; Stop 09/20/19 at 21:59; Status DC Potassium Chloride 90 meq/ Magnesium Sulfate 20 meq/ Multivitamins 10 ml/Chromium/ Copper/Manganese/ Seleni/Zn 1 ml/ Insulin Human Regular 20 unit/ Total Parenteral Nutrition/Amino Acids/Dextrose/ Fat Emulsion Intravenous 1,800 ml @ 75 mls/hr TPN CONT IV Last administered on 09/20/19at 22:08; Start 09/20/19 at 22:00; Stop 09/21/19 at 21:59; Status DC Lorazepam (Ativan Inj) 0.25 mg PRN Q4HRS PRN IVP ANXIETY / AGITATION Last administered on 10/15/19at 13:37; Start 09/21/19 at 07:30 Potassium Chloride 90 meq/ Magnesium Sulfate 20 meq/ Multivitamins 10 ml/Chromium/ Copper/Manganese/ Seleni/Zn 1 ml/ Insulin Human Regular 20 unit/ Total Parenteral Nutrition/Amino Acids/Dextrose/ Fat Emulsion Intravenous 1,800 ml @ 75 mls/hr TPN CONT IV Last administered on 09/21/19at 23:13; Start 09/21/19 at 22:00; Stop 09/22/19 at 21:59; Status DC Furosemide (Lasix) 40 mg DAILY IVP Last administered on 09/23/19at 11:14; Start 09/21/19 at 13:30; Stop 09/25/19 at 09:12; Status DC Fluoxetine HCl (PROzac) 20 mg QHS PEG Last administered on 10/15/19at 21:52; Start 09/22/19 at 21:00 Fentanyl (Duragesic 50mcg/ Hr Patch) 1 patch Q72H TD Last administered on 09/22/19at 21:22; Start 09/22/19 at 21:00; Stop 10/01/19 at 12:00; Status DC Potassium Chloride 40 meq/ Potassium Acetate 60 meq/Magnesium Sulfate 10 meq/ Multivitamins 10 ml/Chromium/ Copper/Manganese/ Seleni/Zn 1 ml/ Insulin Human Regular 20 unit/ Total Parenteral Nutrition/Amino Acids/Dextrose/ Fat Emulsion Intravenous 1,800 ml @ 75 mls/hr TPN CONT IV Last administered on 09/23/19at 00:03; Start 09/22/19 at 22:00; Stop 09/23/19 at 21:59; Status DC Potassium Acetate 80 meq/Magnesium Sulfate 5 meq/ Multivitamins 10 ml/Chromium/ Copper/Manganese/ Seleni/Zn 1 ml/ Insulin Human Regular 20 unit/ Total Parenteral Nutrition/Amino Acids/Dextrose/ Fat Emulsion Intravenous 1,920 ml @ 80 mls/hr TPN CONT IV Last administered on 09/23/19at 21:59; Start 09/23/19 at 22:00; Stop 09/24/19 at 21:59; Status DC Potassium Acetate 60 meq/Magnesium Sulfate 5 meq/ Multivitamins 10 ml/Chromium/ Copper/Manganese/ Seleni/Zn 1 ml/ Insulin Human Regular 30 unit/ Total Parenteral Nutrition/Amino Acids/Dextrose/ Fat Emulsion Intravenous 1,920 ml @ 80 mls/hr TPN CONT IV Last administered on 09/24/19at 21:54; Start 09/24/19 at 22:00; Stop 09/25/19 at 21:59; Status DC Norepinephrine Bitartrate 8 mg/ Dextrose 258 ml @ 13.332 mls/ hr CONT PRN IV PER PROTOCOL Last administered on 10/18/19at 15:41; Start 09/25/19 at 06:30 Albumin Human 500 ml @ 125 mls/hr 1X ONCE IV Last administered on 09/25/19at 08:10; Start 09/25/19 at 08:15; Stop 09/25/19 at 12:14; Status DC Potassium Acetate 40 meq/Magnesium Sulfate 5 meq/ Multivitamins 10 ml/Chromium/ Copper/Manganese/ Seleni/Zn 1 ml/ Insulin Human Regular 30 unit/ Total Parenteral Nutrition/Amino Acids/Dextrose/ Fat Emulsion Intravenous 1,920 ml @ 80 mls/hr TPN CONT IV Last administered on 09/25/19at 22:23; Start 09/25/19 at 22:00; Stop 09/26/19 at 21:59; Status DC Meropenem 1 gm/ Sodium Chloride 100 ml @ 200 mls/hr Q8HRS IV ; Start 09/25/19 at 14:00; Status Cancel Meropenem 1 gm/ Sodium Chloride 100 ml @ 200 mls/hr Q8HRS IV Last administered on 09/25/19at 11:04; Start 09/25/19 at 10:00; Stop 09/25/19 at 13:00; Status DC Meropenem 1 gm/ Sodium Chloride 100 ml @ 200 mls/hr Q12HR IV Last administered on 10/13/19at 08:27; Start 09/25/19 at 21:00; Stop 10/13/19 at 08:56; Status DC Sodium Chloride 1,000 ml @ 1,000 mls/hr 1X ONCE IV Last administered on 09/25/19at 11:06; Start 09/25/19 at 10:45; Stop 09/25/19 at 11:44; Status DC Micafungin Sodium 100 mg/Dextrose 100 ml @ 100 mls/hr Q24H IV Last administe red on 10/12/19at 12:34; Start 09/25/19 at 11:00; Stop 10/13/19 at 08:56; Status DC Daptomycin 410 mg/ Sodium Chloride 50 ml @ 100 mls/hr Q24H IV Last administered on 09/27/19at 13:33; Start 09/25/19 at 14:00; Stop 09/28/19 at 08:30; Status DC Midazolam HCl (Versed) 2 mg STK-MED ONCE .ROUTE ; Start 09/25/19 at 14:47; Stop 09/25/19 at 14:48; Status DC Fentanyl Citrate (Fentanyl 2ml Vial) 100 mcg STK-MED ONCE .ROUTE ; Start 09/25/19 at 14:47; Stop 09/25/19 at 14:48; Status DC Flumazenil (Romazicon) 0.5 mg STK-MED ONCE IV ; Start 09/25/19 at 14:48; Stop 09/25/19 at 14:48; Status DC Naloxone HCl (Narcan) 0.4 mg STK-MED ONCE .ROUTE ; Start 09/25/19 at 14:48; Stop 09/25/19 at 14:48; Status DC Lidocaine HCl (Lidocaine 1% 20ml Vial) 20 ml STK-MED ONCE .ROUTE ; Start 09/25/19 at 14:48; Stop 09/25/19 at 14:48; Status DC Midazolam HCl (Versed) 2 mg 1X ONCE IV Last administered on 09/25/19at 15:28; S tart 09/25/19 at 15:00; Stop 09/25/19 at 15:01; Status DC Fentanyl Citrate (Fentanyl 2ml Vial) 100 mcg 1X ONCE IV Last administered on 09/25/19at 15:28; Start 09/25/19 at 15:00; Stop 09/25/19 at 15:01; Status DC Lidocaine HCl (Lidocaine 1% 20ml Vial) 20 ml 1X ONCE INJ Last administered on 09/25/19at 15:30; Start 09/25/19 at 15:00; Stop 09/25/19 at 15:01; Status DC Sodium Chloride 1,000 ml @ 100 mls/hr Q10H IV Last administered on 10/04/19at 07:30; Start 09/25/19 at 20:00; Stop 10/04/19 at 11:26; Status DC Sodium Bicarbonate (Sodium Bicarb Adult 8.4% Syr) 50 meq 1X ONCE IV Last administered on 09/25/19at 21:47; Start 09/25/19 at 22:00; Stop 09/25/19 at 22:01; Status DC Potassium Acetate 40 meq/Magnesium Sulfate 5 meq/ Multivitamins 10 ml/Chromium/ Copper/Manganese/ Seleni/Zn 1 ml/ Insulin Human Regular 30 unit/ Total Parenteral Nutrition/Amino Acids/Dextrose/ Fat Emulsion Intravenous 1,920 ml @ 80 mls/hr TPN CONT IV Last administered on 09/26/19at 22:28; Start 09/26/19 at 22:00; Stop 09/27/19 at 21:59; Status DC Sodium Chloride 500 ml @ 500 mls/hr 1X ONCE IV Last administered on 09/27/19at 06:39; Start 09/27/19 at 06:45; Stop 09/27/19 at 07:44; Status DC Potassium Acetate 40 meq/Magnesium Sulfate 5 meq/ Multivitamins 10 ml/Chromium/ Copper/Manganese/ Seleni/Zn 1 ml/ Insulin Human Regular 30 unit/ Total Parenteral Nutrition/Amino Acids/Dextrose/ Fat Emulsion Intravenous 1,920 ml @ 80 mls/hr TPN CONT IV Last administered on 09/27/19at 22:03; Start 09/27/19 at 22:00; Stop 09/28/19 at 21:59; Status DC Metoprolol Tartrate (Lopressor Vial) 5 mg PRN Q6HRS PRN IVP HYPERTENSION Last administered on 10/06/19at 10:14; Start 09/28/19 at 09:00 Potassium Acetate 40 meq/Magnesium Sulfate 5 meq/ Multivitamins 10 ml/Chromium/ Copper/Manganese/ Seleni/Zn 1 ml/ Insulin Human Regular 30 unit/ Total Parenteral Nutrition/Amino Acids/Dextrose/ Fat Emulsion Intravenous 1,920 ml @ 80 mls/hr TPN CONT IV Last administered on 09/28/19at 21:26; Start 09/28/19 at 22:00; Stop 09/29/19 at 21:59; Status DC Potassium Acetate 40 meq/Magnesium Sulfate 5 meq/ Multivitamins 10 ml/Chromium/ Copper/Manganese/ Seleni/Zn 1 ml/ Insulin Human Regular 30 unit/ Total Parenteral Nutrition/Amino Acids/Dextrose/ Fat Emulsion Intravenous 1,920 ml @ 80 mls/hr TPN CONT IV Last administered on 09/29/19at 23:23; Start 09/29/19 at 22:00; Stop 09/30/19 at 21:59; Status DC Potassium Acetate 40 meq/Magnesium Sulfate 5 meq/ Multivitamins 10 ml/Chromium/ Copper/Manganese/ Seleni/Zn 1 ml/ Insulin Human Regular 30 unit/ Total Parenteral Nutrition/Amino Acids/Dextrose/ Fat Emulsion Intravenous 1,920 ml @ 80 mls/hr TPN CONT IV Last administered on 09/30/19at 21:35; Start 09/30/19 at 22:00; Stop 10/01/19 at 21:59; Status DC Furosemide (Lasix) 20 mg 1X ONCE IVP Last administered on 10/01/19at 06:26; Start 10/01/19 at 06:15; Stop 10/01/19 at 06:16; Status DC Methylprednisolone Sodium Succinate (SOLU-Medrol 125MG VIAL) 125 mg 1X ONCE IV Last administered on 10/01/19at 06:26; Start 10/01/19 at 06:15; Stop 10/01/19 at 06:16; Status DC Albuterol/ Ipratropium (Duoneb) 3 ml Q4HRS NEB Last administered on 10/19/19at 11:49; Start 10/01/19 at 08:00 Fentanyl Citrate 30 ml @ 0 mls/hr CONT PRN IV SEE PROTOCOL Last administered on 10/19/19at 09:25; Start 10/01/19 at 06:00 Propofol 100 ml @ 0 mls/hr CONT PRN IV SEE PROTOCOL Last administered on 10/08/19at 23:50; Start 10/01/19 at 06:00 Fentanyl Citrate (Fentanyl 2ml Vial) 25 mcg PRN Q1HR PRN IV SEE COMMENTS; Start 10/01/19 at 06:00 Fentanyl Citrate (Fentanyl 2ml Vial) 50 mcg PRN Q1HR PRN IV SEE COMMENTS; Start 10/01/19 at 06:00 Chlorhexidine Gluconate (Peridex) 15 ml BID MM ; Start 10/01/19 at 09:00; Stop 10/01/19 at 07:58; Status DC Potassium Acetate 40 meq/Magnesium Sulfate 5 meq/ Multivitamins 10 ml/Chromium/ Copper/Manganese/ Seleni/Zn 1 ml/ Insulin Human Regular 30 unit/ Total Janett ral Nutrition/Amino Acids/Dextrose/ Fat Emulsion Intravenous 1,920 ml @ 80 mls/hr TPN CONT IV Last administered on 10/01/19at 21:19; Start 10/01/19 at 22:00; Stop 10/02/19 at 21:59; Status DC Acetylcysteine (Mucomyst 20% Resp Treatment) 600 mg BID NEB Last administered on 10/07/19at 09:33; Start 10/01/19 at 21:00; Stop 10/07/19 at 10:39; Status DC Magnesium Sulfate 100 ml @ 25 mls/hr 1X ONCE IV Last administered on 10/01/19at 15:48; Start 10/01/19 at 15:45; Stop 10/01/19 at 19:44; Status DC Potassium Acetate 40 meq/Magnesium Sulfate 5 meq/ Multivitamins 10 ml/Chromium/ Copper/Manganese/ Seleni/Zn 1 ml/ Insulin Human Regular 30 unit/ Total Parenteral Nutrition/Amino Acids/Dextrose/ Fat Emulsion Intravenous 1,920 ml @ 80 mls/hr TPN CONT IV Last administered on 10/02/19at 21:35; Start 10/02/19 at 22:00; Stop 10/03/19 at 21:59; Status DC Potassium Chloride/Water 100 ml @ 100 mls/hr Q1H IV Last administered on 10/03/19at 08:31; Start 10/03/19 at 07:00; Stop 10/03/19 at 08:59; Status DC Potassium Acetate 40 meq/Magnesium Sulfate 5 meq/ Multivitamins 10 ml/Chromium/ Copper/Manganese/ Seleni/Zn 1 ml/ Insulin Human Regular 30 unit/ Total Parenteral Nutrition/Amino Acids/Dextrose/ Fat Emulsion Intravenous 1,920 ml @ 80 mls/hr TPN CONT IV Last administered on 10/03/19at 21:54; Start 10/03/19 at 22:00; Stop 10/04/19 at 19:34; Status DC Lidocaine HCl (Buffered Lidocaine 1%) 3 ml STK-MED ONCE .ROUTE ; Start 10/03/19 at 12:14; Stop 10/03/19 at 12:14; Status DC Lidocaine HCl (Buffered Lidocaine 1%) 3 ml 1X ONCE IJ Last administered on 10/03/19at 13:11; Start 10/03/19 at 13:00; Stop 10/03/19 at 13:01; Status DC Magnesium Sulfate 50 ml @ 25 mls/hr 1X ONCE IV ; Start 10/04/19 at 08:15; Stop 10/04/19 at 10:14; Status DC Potassium Acetate 40 meq/Magnesium Sulfate 10 meq/ Multivitamins 10 ml/Chromium/ Copper/Manganese/ Seleni/Zn 1 ml/ Insulin Human Regular 20 unit/ Total Parenteral Nutrition/Amino Acids/Dextrose/ Fat Emulsion Intravenous 1,920 ml @ 80 mls/hr TPN CONT IV Last administered on 10/04/19at 21:32; Start 10/04/19 at 22:00; Stop 10/05/19 at 21:59; Status DC Potassium Chloride/Water 100 ml @ 100 mls/hr Q1H IV Last administered on 10/05/19at 09:12; Start 10/05/19 at 08:00; Stop 10/05/19 at 09:59; Status DC Alteplase, Recombinant (Cathflo For Central Catheter Clearance) 4 mg 1X ONCE INT CAT ; Start 10/05/19 at 09:15; Stop 10/05/19 at 09:16; Status UNV Alteplase, Recombinant (Cathflo For Central Catheter Clearance) 4 mg 1X ONCE INT CAT ; Start 10/05/19 at 09:15; Stop 10/05/19 at 09:16; Status UNV Alteplase, Recombinant (Cathflo For Central Catheter Clearance) 4 mg 1X ONCE INT CAT ; Start 10/05/19 at 09:15; Stop 10/05/19 at 09:16; Status UNV Alteplase, Recombinant 4 mg/ Sodium Chloride 20 ml @ 20 mls/hr 1X ONCE IV Last administered on 10/05/19at 10:10; Start 10/05/19 at 10:00; Stop 10/05/19 at 10:59; Status DC Alteplase, Recombinant 4 mg/ Sodium Chloride 20 ml @ 20 mls/hr 1X ONCE IV Last administered on 10/05/19at 10:09; Start 10/05/19 at 10:00; Stop 10/05/19 at 10:59; Status DC Alteplase, Recombinant 4 mg/ Sodium Chloride 20 ml @ 20 mls/hr 1X ONCE IV Last administered on 10/05/19at 10:09; Start 10/05/19 at 10:00; Stop 10/05/19 at 10:59; Status DC Potassium Acetate 60 meq/Magnesium Sulfate 10 meq/ Multivitamins 10 ml/Chromium/ Copper/Manganese/ Seleni/Zn 1 ml/ Insulin Human Regular 20 unit/ Total Parenteral Nutrition/Amino Acids/Dextrose/ Fat Emulsion Intravenous 1,920 ml @ 80 mls/hr TPN CONT IV Last administered on 10/05/19at 21:55; Start 10/05/19 at 22:00; Stop 10/06/19 at 21:59; Status DC Albumin Human 500 ml @ 125 mls/hr 1X ONCE IV Last administered on 10/06/19at 12:01; Start 10/06/19 at 11:15; Stop 10/06/19 at 15:14; Status DC Sodium Chloride 500 ml @ 500 mls/hr 1X ONCE IV Last administered on 10/06/19at 13:50; Start 10/06/19 at 11:15; Stop 10/06/19 at 12:14; Status DC Potassium Acetate 60 meq/Magnesium Sulfate 14 meq/ Multivitamins 10 ml/Chromium/ Copper/Manganese/ Seleni/Zn 1 ml/ Insulin Human Regular 20 unit/ Total Parenteral Nutrition/Amino Acids/Dextrose/ Fat Emulsion Intravenous 1,920 ml @ 80 mls/hr TPN CONT IV Last administered on 10/06/19at 22:26; Start 10/06/19 at 22:00; Stop 10/07/19 at 21:59; Status DC Ciprofloxacin/ Dextrose 200 ml @ 200 mls/hr Q12HR IV Last administered on 10/13/19at 08:27; Start 10/06/19 at 21:00; Stop 10/13/19 at 08:56; Status DC Albumin Human 250 ml @ 62.5 mls/hr 1X ONCE IV Last administered on 10/07/19at 11:09; Start 10/07/19 at 11:00; Stop 10/07/19 at 14:59; Status DC Furosemide (Lasix) 20 mg 1X ONCE IVP Last administered on 10/07/19at 14:52; Start 10/07/19 at 10:45; Stop 10/07/19 at 10:49; Status DC Potassium Acetate 60 meq/Magnesium Sulfate 14 meq/ Multivitamins 10 ml/Chromium/ Copper/Manganese/ Seleni/Zn 1 ml/ Insulin Human Regular 15 unit/ Total Parenteral Nutrition/Amino Acids/Dextrose/ Fat Emulsion Intravenous 1,920 ml @ 80 mls/hr TPN CONT IV Last administered on 10/07/19at 22:08; Start 10/07/19 at 22:00; Stop 10/08/19 at 21:59; Status DC Potassium Acetate 60 meq/Magnesium Sulfate 14 meq/ Multivitamins 10 ml/Chromium/ Copper/Manganese/ Seleni/Zn 1 ml/ Insulin Human Regular 15 unit/ Total Parenteral Nutrition/Amino Acids/Dextrose/ Fat Emulsion Intravenous 1,920 ml @ 80 mls/hr TPN CONT IV Last administered on 10/08/19at 22:12; Start 10/08/19 at 22:00; Stop 10/09/19 at 21:59; Status DC Potassium Acetate 60 meq/Magnesium Sulfate 14 meq/ Multivitamins 10 ml/Chromium/ Copper/Manganese/ Seleni/Zn 1 ml/ Insulin Human Regular 15 unit/ Total Parenteral Nutrition/Amino Acids/Dextrose/ Fat Emulsion Intravenous 1,920 ml @ 80 mls/hr TPN CONT IV Last administered on 10/09/19at 22:22; Start 10/09/19 at 22:00; Stop 10/10/19 at 21:59; Status DC Furosemide (Lasix) 20 mg 1X ONCE IVP Last administered on 10/10/19at 11:07; Start 10/10/19 at 10:30; Stop 10/10/19 at 10:34; Status DC Potassium Acetate 60 meq/Magnesium Sulfate 14 meq/ Multivitamins 10 ml/Chromium/ Copper/Manganese/ Seleni/Zn 1 ml/ Insulin Human Regular 15 unit/ Sodium Chloride 20 meq/Total Parenteral Nutrition/Amino Acids/Dextrose/ Fat Emulsion Intravenous 1,920 ml @ 80 mls/hr TPN CONT IV Last administered on 10/10/19at 21:54; Start 10/10/19 at 22:00; Stop 10/11/19 at 21:59; Status DC Potassium Acetate 30 meq/Magnesium Sulfate 14 meq/ Multivitamins 10 ml/Chromium/ Copper/Manganese/ Seleni/Zn 1 ml/ Insulin Human Regular 15 unit/ Sodium Chloride 20 meq/Potassium Chloride 30 meq/ Total Parenteral Nutrition/Amino Acids/Dextrose/ Fat Emulsion Intravenous 1,920 ml @ 80 mls/hr TPN CONT IV Last administered on 10/11/19at 21:46; Start 10/11/19 at 22:00; Stop 10/12/19 at 21:59; Status DC Sodium Chloride 80 meq/Potassium Chloride 30 meq/ Potassium Acetate 30 meq/Magnesium Sulfate 14 meq/ Multivitamins 10 ml/Chromium/ Copper/Manganese/ Seleni/Zn 1 ml/ Insulin Human Regular 15 unit/ Total Parenteral Nutrition/Amino Acids/Dextrose/ Fat Emulsion Intravenous 1,920 ml @ 80 mls/hr TPN CONT IV Last administered on 10/12/19at 22:33; Start 10/12/19 at 22:00; Stop 10/13/19 at 21:59; Status DC Furosemide (Lasix) 40 mg 1X ONCE IVP Last administered on 10/12/19at 16:27; Start 10/12/19 at 15:30; Stop 10/12/19 at 15:33; Status DC Albumin Human 250 ml @ 62.5 mls/hr 1X ONCE IV Last administered on 10/12/19at 16:27; Start 10/12/19 at 15:30; Stop 10/12/19 at 19:29; Status DC Sodium Chloride 80 meq/Potassium Chloride 30 meq/ Potassium Acetate 30 meq/Magnesium Sulfate 14 meq/ Multivitamins 10 ml/Chromium/ Copper/Manganese/ Seleni/Zn 1 ml/ Insulin Human Regular 15 unit/ Total Parenteral Nutrition/Amino Acids/Dextrose/ Fat Emulsion Intravenous 1,920 ml @ 80 mls/hr TPN CONT IV Last administered on 10/13/19at 22:25; Start 10/13/19 at 22:00; Stop 10/14/19 at 21:59; Status DC Sodium Chloride 80 meq/Potassium Chloride 30 meq/ Potassium Acetate 30 m eq/Magnesium Sulfate 14 meq/ Multivitamins 10 ml/Chromium/ Copper/Manganese/ Seleni/Zn 1 ml/ Insulin Human Regular 15 unit/ Total Parenteral Nutrition/Amino Acids/Dextrose/ Fat Emulsion Intravenous 1,920 ml @ 80 mls/hr TPN CONT IV Last administered on 10/14/19at 21:32; Start 10/14/19 at 22:00; Stop 10/15/19 at 21:59; Status DC Sodium Chloride 80 meq/Potassium Chloride 30 meq/ Potassium Acetate 30 meq/Magnesium Sulfate 14 meq/ Multivitamins 10 ml/Chromium/ Copper/Manganese/ Seleni/Zn 1 ml/ Insulin Human Regular 15 unit/ Total Parenteral Nutrition/Amino Acids/Dextrose/ Fat Emulsion Intravenous 1,920 ml @ 80 mls/hr TPN CONT IV [place] [facility] administered on 10/15/19at 21:53; Start 10/15/19 at 22:00; Stop 10/16/19 at 21:59; Status DC Acetylcysteine (Mucomyst 20% Resp Treatment) 600 mg RTBID NEB Last administered on 10/19/19at 08:00; Start 10/15/19 at 12:00 Sodium Chloride 80 meq/Potassium Chloride 30 meq/ Potassium Acetate 30 meq/Magnesium Sulfate 14 meq/ Multivitamins 10 ml/Chromium/ Copper/Manganese/ Seleni/Zn 1 ml/ Insulin Human Regular 15 unit/ Total Parenteral Nutrition/Amino Acids/Dextrose/ Fat Emulsion Intravenous 1,920 ml @ 80 mls/hr TPN CONT IV Last administered on 10/16/19at 22:06; Start 10/16/19 at 22:00; Stop 10/17/19 at 21:59; Status DC Meropenem 500 mg/ Sodium Chloride 50 ml @ 100 mls/hr Q6HRS IV Last administered on 10/19/19at 11:53; Start 10/16/19 at 18:00 Daptomycin 500 mg/ Sodium Chloride 50 ml @ 100 mls/hr Q24H IV Last administered on 10/18/19at 21:48; Start 10/16/19 at 19:00 Sodium Chloride 80 meq/Potassium Chloride 30 meq/ Potassium Acetate 30 meq/Magnesium Sulfate 14 meq/ Multivitamins 10 ml/Chromium/ Copper/Manganese/ Seleni/Zn 1 ml/ Insulin Human Regular 15 unit/ Total Parenteral Nutrition/Amino Acids/Dextrose/ Fat Emulsion Intravenous 1,920 ml @ 80 mls/hr TPN CONT IV Last administered on 10/17/19at 22:09; Start 10/17/19 at 22:00; Stop 10/18/19 at 21:59; Status DC Heparin Sodium (Porcine) 1000 unit/Sodium Chloride 1,001 ml @ 1,001 mls/hr 1X ONCE IRR ; Start 10/18/19 at 06:00; Stop 10/18/19 at 06:59; Status DC Propofol (Diprivan) 200 mg STK-MED ONCE IV ; Start 10/18/19 at 07:44; Stop 10/18/19 at 07:44; Status DC Lidocaine HCl (Lidocaine Pf 2% Vial) 5 ml STK-MED ONCE .ROUTE ; Start 10/18/19 at 07:44; Stop 10/18/19 at 07:44; Status DC Fentanyl Citrate (Fentanyl 2ml Vial) 100 mcg STK-MED ONCE .ROUTE ; Start 10/18/19 at 07:44; Stop 10/18/19 at 07:44; Status DC Rocuronium [place] (Zemuron) 100 mg STK-MED ONCE .ROUTE ; Start 10/18/19 at 07:44; Stop 10/18/19 at 07:44; Status DC Micafungin Sodium 100 mg/Dextrose 100 ml @ 100 mls/hr Q24H IV Last administered on 10/19/19at 09:26; Start 10/18/19 at 08:30 Bupivacaine HCl/ Epinephrine Bitart (Sensorcain-Epi 0.5%-1:[id number] Mpf) 30 ml STK-MED ONCE .ROUTE ; Start 10/18/19 at 08:34; Stop 10/18/19 at 08:35; Status DC Iohexol (Omnipaque 300 Mg/ml) 50 ml STK-MED ONCE .ROUTE Last administered on 10/18/19at 13:30; Start 10/18/19 at 08:35; Stop 10/18/19 at 08:35; Status DC Sodium Chloride 80 meq/Potassium Chloride 30 meq/ Potassium Acetate 30 meq/Magnesium Sulfate 14 meq/ Multivitamins 10 ml/Chromium/ Copper/Manganese/ Seleni/Zn 1 ml/ Insulin Human Regular 15 unit/ Total Parenteral Nutrition/Amino Acids/Dextrose/ Fat Emulsion Intravenous 1,920 ml @ 80 mls/hr TPN CONT IV Last administered on 10/19/19at 01:22; Start 10/18/19 at 22:00; Stop 10/19/19 at 21:59 Phenylephrine HCl (Brayden-Synephrine Inj) 10 mg STK-MED ONCE .ROUTE ; Start 10/18/19 at 10:15; Stop 10/18/19 at 10:15; Status DC Desflurane (Suprane) 90 ml STK-MED ONCE IH ; Start 10/18/19 at 10:18; Stop 10/18/19 at 10:19; Status DC Albumin Human 500 ml @ As Directed STK-MED ONCE IV ; Start 10/18/19 at 11:06; Stop 10/18/19 at 11:06; Status DC Vasopressin (Vasostrict) 20 unit STK-MED ONCE .ROUTE ; Start 10/18/19 at 12:23; Stop 10/18/19 at 12:23; Status DC Phenylephrine HCl (Brayden-Synephrine Inj) 10 mg STK-MED ONCE .ROUTE ; Start 10/18/19 at 13:33; Stop 10/18/19 at 13:33; Status DC Phenylephrine HCl (Brayden-Synephrine Inj) 10 mg STK-MED ONCE .ROUTE ; Start 10/18/19 at 13:33; Stop 10/18/19 at 13:33; Status DC Ondansetron HCl (Zofran) 4 mg STK-MED ONCE .ROUTE ; Start 10/18/19 at 13:33; Stop 10/18/19 at 13:33; Status DC Enoxaparin Sodium (Lovenox 40mg Syringe) 40 mg Q24H SQ ; Start 10/19/19 at 08:00 Sodium Chloride (Normal Saline Flush) 3 ml QSHIFT PRN IV AFTER MEDS AND BLOOD DRAWS; Start 10/18/19 at 14:45 Naloxone HCl (Narcan) 0.4 mg PRN Q2MIN PRN IV SEE INSTRUCTIONS; Start 10/18/19 at 14:45 Sodium Chloride 1,000 ml @ 25 mls/hr Q24H IV ; Start 10/18/19 at 14:33 Morphine Sulfate (Morphine Sulfate) 1 mg PRN Q1HR PRN IV PAIN; Start 10/18/19 at 14:45 Midazolam HCl 100 mg/Sodium Chloride 100 ml @ 1 mls/hr CONT PRN IV SEE I/O RECORD Last administered on 10/19/19at 09:23; Start 10/18/19 at 14:45 Phenylephrine HCl (PHENYLEPHRINE in 0.9% NACL PF) 1 mg STK-MED ONCE IV ; Start 10/18/19 at 14:44; Stop 10/18/19 at 14:45; Status DC Ephedrine Sulfate (ePHEDrine PF IN SALINE SYRINGE) 50 mg STK-MED ONCE IV ; Start 10/18/19 at 14:45; Stop 10/18/19 at 14:45; Status DC Vasopressin 20 unit/Dextrose 101 ml @ 12 mls/hr CONT PRN IV SEE I/O RECORD Last administered on 10/19/19at 09:24; Start 10/18/19 at 15:30 Sodium Chloride 1,000 ml @ 1,000 mls/hr 1X ONCE IV Last administered on 10/18/19at 15:42; Start 10/18/19 at 15:45; Stop 10/18/19 at 16:44; Status DC Albumin Human 500 ml @ 125 mls/hr 1X ONCE IV ; Start 10/18/19 at 16:00; Stop 10/18/19 at 19:59; Status DC Albumin Human 500 ml @ 125 mls/hr PRN Q1HR PRN IV PER PROTOCOL; Start 10/18/19 at 15:45 Magnesium Sulfate 50 ml @ 25 mls/hr 1X ONCE IV Last administered on 10/18/19at 17:02; Start 10/18/19 at 16:30; Stop 10/18/19 at 18:29; Status DC Sodium Bicarbonate (Sodium Bicarb Adult 8.4% Syr) 50 meq STK-MED ONCE .ROUTE ; Start 10/18/19 at 16:20; Stop 10/18/19 at 16:20; Status DC Sodium Bicarbonate (Sodium Bicarb Adult 8.4% Syr) 100 meq 1X ONCE IV Last administered on 10/18/19at 17:07; Start 10/18/19 at 16:30; Stop 10/18/19 at 16:31; Status DC Sodium Bicarbonate 150 meq/Dextrose 1,150 ml @ 75 mls/hr 1X ONCE IV Last administered on 10/18/19at 20:02; Start 10/18/19 at 16:30; Stop 10/19/19 at 07:49; Status DC Active Scripts Active Reported Bisoprolol Fumarate 5 Mg Tablet 10 Mg PO DAILY Vitals/I & O Vital Sign - Last 24 Hours 10/18/19 10/18/19 10/18/19 10/18/19 15:15 15:20 15:22 15:25 Temp 97.6 97.6 Pulse 120 140 155 Resp 20 20 20 B/P (MAP) Pulse Ox 100 100 100 100 O2 Delivery Ventilator Ventilator Ventilator Ventilator 10/18/19 10/18/19 10/18/19 10/18/19 15:30 15:40 15:50 16:00 Pulse 140 137 138 Resp 20 20 20 B/P (MAP) 112/ 145/87 (106) 164/99 (120) Pulse Ox 100 100 100 O2 Delivery Ventilator Ventilator Ventilator 10/18/19 10/18/19 10/18/19 10/18/19 16:00 16:00 16:15 16:30 Temp 98.5 98.5 Pulse 134 132 128 Resp 20 20 B/P (MAP) 146/86 (106) 105/67 (80) 126/78 (94) Pulse Ox 100 100 100 O2 Delivery Ventilator Mechanical Ventilator Ventilator Ventilator 10/18/19 10/18/19 10/18/19 10/18/19 16:45 17:00 17:09 17:15 Temp 98.8 98.8 Pulse 120 134 106 Resp 20 20 20 B/P (MAP) 106/66 (79) 146/86 (106) 129/79 (96) Pulse Ox 100 100 100 100 O2 Delivery Ventilator Ventilator Ventilator Ventilator 10/18/19 10/18/19 10/18/19 10/18/19 17:30 17:40 17:45 18:00 Temp 98.8 98.5 98.7 98.8 98.5 98.7 Pulse 104 102 110 90 Resp 20 20 20 20 B/P (MAP) 150/86 (107) 158/86 100/60 (73) 172/90 (117) Pulse Ox 100 100 100 O2 Delivery Ventilator Ventilator Ventilator 10/18/19 10/18/19 10/18/19 10/18/19 18:15 18:30 18:45 19:00 Temp 98.8 98.8 Pulse 100 96 92 96 Resp 20 20 20 B/P (MAP) 114/70 (85) 142/80 (100) 166/90 (115) 109/69 (82) Pulse Ox 100 100 100 100 O2 Delivery Ventilator Ventilator Ventilator Ventilator 10/18/19 10/18/19 10/18/19 10/18/19 20:00 20:00 20:00 20:02 Temp 99.6 99.6 Pulse 95 95 Resp B/P (MAP) 116/73 (87) 116/73 (87) Pulse Ox 100 100 O2 Delivery Ventilator Mechanical Ventilator Ventilator 10/18/19 10/18/19 10/18/19 10/18/19 21:00 22:00 22:51 23:00 Pulse 99 99 100 Resp 20 25 24 B/P (MAP) 125/73 (90) 132/78 (96) 103/65 (78) Pulse Ox 100 100 100 100 O2 Delivery Ventilator Ventilator Ventilator Ventilator O2 Flow Rate 8.0 10/18/19 10/19/19 10/19/19 10/19/19 23:21 00:00 00:00 00:00 Temp 100.8 100.8 Pulse 107 95 Resp 27 B/P (MAP) 127/71 (89) 105/66 (79) Pulse Ox 100 100 O2 Delivery Ventilator Mechanical Ventilator Ventilator O2 Flow Rate 8.0 10/19/19 10/19/19 10/19/19 10/19/19 00:43 01:00 02:00 02:29 Pulse 108 110 Resp 24 B/P (MAP) 105/66 (79) 104/61 (75) Pulse Ox 100 100 100 100 O2 Delivery Ventilator Ventilator Ventilator Ventilator O2 Flow Rate 8.0 10/19/19 10/19/19 10/19/19 10/19/19 02:59 03:00 04:00 04:00 Temp 99.8 99.8 Pulse 105 103 103 Resp 24 23 25 B/P (MAP) 100/61 (74) 103/62 (76) 103/62 (76) Pulse Ox 100 100 100 O2 Delivery Ventilator Ventilator Ventilator O2 Flow Rate 8.0 10/19/19 10/19/19 10/19/191/20 04:00 04:18 05:00 06:00 Pulse 103 104 Resp 24 24 B/P (MAP) 95/60 (72) 120/61 (80) Pulse Ox 100 100 100 O2 Delivery Mechanical Ventilator Ventilator Ventilator Ventilator 10/19/19 10/19/19 10/19/19 10/19/19 07:00 08:00 08:00 08:12 Pulse 104 Resp 20 B/P (MAP) 112/66 (81) Pulse Ox 100 100 O2 Delivery Ventilator Mechanical Ventilator Ventilator 10/19/19 10/19/19 10/19/19 10/19/19 09:25 09:51 11:00 11:09 Pulse 112 Resp 24 12 12 B/P (MAP) 90/48 (62) Pulse Ox 100 99 100 99 O2 Delivery Ventilator Ventilator Ventilator Ventilator O2 Flow Rate 40.0 10/19/19 10/19/19 10/19/19 10/19/19 11:49 12:00 12:00 12:00 Temp 99.6 99.6 Pulse 99 Resp 12 B/P (MAP) 91/64 (73) Pulse Ox 99 100 O2 Delivery Ventilator Mechanical Ventilator Ventilator 10/19/19 13:00 Pulse 97 Resp 12 B/P (MAP) 97/57 (70) Pulse Ox 100 O2 Delivery Ventilator Intake and Output 10/18/19 10/18/19 10/19/19 15:00 23:00 07:00 Intake Total 150 ml 3884.3 ml 1128.1 ml Output Total 125 ml 1950 ml 935 ml Balance 25 ml 1934.3 ml 193.1 ml Hemodynamically unstable?: No Is patient in severe pain?: No Is NPO status required?: No GREG HERRERA MD Oct 19, 2019 13:34
--- NOTE | 2019-10-19 14:33 | PDOC ---
SURGICAL PROGRESS NOTE Subjective Pt intubated and sedated, on min pressors Vital Signs Vital Signs Date Time Temp Pulse Resp B/P (MAP) Pulse Ox O2 Delivery O2 Flow Rate FiO2 10/19/19 14:00 101 12 117/60 (79) 100 Ventilator 10/19/19 12:00 99.6 99.6 10/19/19 09:25 40.0 I&O Intake and Output 10/19/19 07:00 Intake Total 5162.4 ml Output Total 3010 ml Balance 2152.4 ml IV Total 3720.4 ml Blood Product 580 ml Blood Product IV Normal Saline Flush 862 ml Output Urine Total 750 ml Drainage Total 2260 ml PATIENT HAS A ROSARIO: Yes (accurate i and os) General: No acute distress Abdomen: Soft, No tenderness, Other (drains in place) Labs Laboratory Tests Test 10/18/19 00:24 10/18/19 05:25 10/18/19 05:34 10/18/19 09:52 Glucose (Fingerstick) 128 mg/dL (70-99) 128 mg/dL (70-99) 105 mg/dL (70-99) White Blood Count 14.8 x10^3/uL (4.0-11.0) Red Blood Count 2.95 x10^6/uL (3.50-5.40) Hemoglobin 8.1 g/dL (12.0-15.5) Hematocrit 25.1 % (36.0-47.0) Mean Corpuscular Volume 85 fL (79-100) Mean Corpuscular Hemoglobin 27 pg (25-35) Mean Corpuscular Hemoglobin Concent 32 g/dL (31-37) Red Cell Distribution Width 18.2 % (11.5-14.5) Platelet Count 452 x10^3/uL (140-400) Neutrophils (%) (Auto) 80 % (31-73) Lymphocytes (%) (Auto) 10 % (24-48) Monocytes (%) (Auto) 8 % (0-9) Eosinophils (%) (Auto) 1 % (0-3) Basophils (%) (Auto) 0 % (0-3) Neutrophils # (Auto) 11.9 x10^3/uL (1.8-7.7) Lymphocytes # (Auto) 1.4 x10^3/uL (1.0-4.8) Monocytes # (Auto) 1.2 x10^3/uL (0.0-1.1) Eosinophils # (Auto) 0.2 x10^3/uL (0.0-0.7) Basophils # (Auto) 0.0 x10^3/uL (0.0-0.2) Sodium Level 136 mmol/L (136-145) Potassium Level 4.4 mmol/L (3.5-5.1) Chloride Level 101 mmol/L (98-107) Carbon Dioxide Level 34 mmol/L (21-32) Anion Gap 1 (6-14) Blood Urea Nitrogen 14 mg/dL (7-20) Creatinine 0.5 mg/dL (0.6-1.0) Estimated GFR (Cockcroft-Gault) 131.1 BUN/Creatinine Ratio 28 (6-20) Glucose Level 136 mg/dL (70-99) Calcium Level 11.1 mg/dL (8.5-10.1) Phosphorus Level 3.9 mg/dL (2.6-4.7) Magnesium Level 2.1 mg/dL (1.8-2.4) Total Bilirubin 0.4 mg/dL (0.2-1.0) Aspartate Amino Transf (AST/SGOT) 18 U/L (15-37) Alanine Aminotransferase (ALT/SGPT) 12 U/L (14-59) Alkaline Phosphatase 118 U/L (46-116) Total Protein 4.7 g/dL (6.4-8.2) Albumin 1.1 g/dL (3.4-5.0) Albumin/Globulin Ratio 0.3 (1.0-1.7) Triglycerides Level 155 mg/dL (0-150) Test 10/18/19 15:30 10/18/19 16:10 10/18/19 21:30 10/19/19 06:00 White Blood Count 49.3 x10^3/uL (4.0-11.0) 21.5 x10^3/uL (4.0-11.0) 18.9 x10^3/uL (4.0-11.0) Red Blood Count 2.36 x10^6/uL (3.50-5.40) 2.77 x10^6/uL (3.50-5.40) 2.55 x10^6/uL (3.50-5.40) Hemoglobin 6.7 g/dL (12.0-15.5) 8.2 g/dL (12.0-15.5) 7.5 g/dL (12.0-15.5) Hematocrit 20.9 % (36.0-47.0) 23.1 % (36.0-47.0) 21.6 % (36.0-47.0) Mean Corpuscular Volume 89 fL (79-100) 84 fL (79-100) 85 fL (79-100) Mean Corpuscular Hemoglobin 28 pg (25-35) 30 pg (25-35) 29 pg (25-35) Mean Corpuscular Hemoglobin Concent 32 g/dL (31-37) 36 g/dL (31-37) 35 g/dL (31-37) Red Cell Distribution Width 16.7 % (11.5-14.5) 14.8 % (11.5-14.5) 14.8 % (11.5-14.5) Platelet Count 335 x10^3/uL (140-400) 211 x10^3/uL (140-400) 253 x10^3/uL (140-400) Sodium Level 138 mmol/L (136-145) 138 mmol/L (136-145) Potassium Level 4.3 mmol/L (3.5-5.1) 3.9 mmol/L (3.5-5.1) Chloride Level 107 mmol/L (98-107) 104 mmol/L (98-107) Carbon Dioxide Level 15 mmol/L (21-32) 26 mmol/L (21-32) Anion Gap 16 (6-14) 8 (6-14) Blood Urea Nitrogen 11 mg/dL (7-20) 19 mg/dL (7-20) Creatinine 0.7 mg/dL (0.6-1.0) 0.8 mg/dL (0.6-1.0) Estimated GFR (Cockcroft-Gault) 88.9 76.2 Glucose Level 169 mg/dL (70-99) 264 mg/dL (70-99) Calcium Level 7.5 mg/dL (8.5-10.1) 9.2 mg/dL (8.5-10.1) Magnesium Level 1.4 mg/dL (1.8-2.4) 2.1 mg/dL (1.8-2.4) O2 Saturation 99 % (92-99) Arterial Blood pH 7.25 (7.35-7.45) Arterial Blood pCO2 at Patient Temp 32 mmHg (35-46) Arterial Blood pO2 at Patient Temp 374 mmHg (75-108) Arterial Blood HCO3 13 mmol/L (21-28) Arterial Blood Base Excess -13 mmol/L (-3-3) FiO2 80%+5 Neutrophils (%) (Auto) 85 % (31-73) Lymphocytes (%) (Auto) 8 % (24-48) Monocytes (%) (Auto) 6 % (0-9) Eosinophils (%) (Auto) 0 % (0-3) Basophils (%) (Auto) 0 % (0-3) Neutrophils # (Auto) 16.1 x10^3/uL (1.8-7.7) Lymphocytes # (Auto) 1.5 x10^3/uL (1.0-4.8) Monocytes # (Auto) 1.2 x10^3/uL (0.0-1.1) Eosinophils # (Auto) 0.0 x10^3/uL (0.0-0.7) Basophils # (Auto) 0.1 x10^3/uL (0.0-0.2) Phosphorus Level 3.5 mg/dL (2.6-4.7) Test 10/19/19 06:06 10/19/19 08:30 10/19/19 11:55 Glucose (Fingerstick) 249 mg/dL (70-99) 235 mg/dL (70-99) O2 Saturation 98 % (92-99) 97 % (92-99) Arterial Blood pH 7.60 (7.35-7.45) 7.38 (7.35-7.45) Arterial Blood pCO2 at Patient Temp 22 mmHg (35-46) 38 mmHg (35-46) Arterial Blood pO2 at Patient Temp 120 mmHg (75-108) 111 mmHg (75-108) Arterial Blood HCO3 21 mmol/L (21-28) 22 mmol/L (21-28) Arterial Blood Base Excess 0 mmol/L (-3-3) -3 mmol/L (-3-3) FiO2 40 40 Laboratory Tests Test 10/18/19 15:30 10/18/19 16:10 10/18/19 21:30 10/19/19 06:00 White Blood Count 49.3 x10^3/uL (4.0-11.0) 21.5 x10^3/uL (4.0-11.0) 18.9 x10^3/uL (4.0-11.0) Red Blood Count 2.36 x10^6/uL (3.50-5.40) 2.77 x10^6/uL (3.50-5.40) 2.55 x10^6/uL (3.50-5.40) Hemoglobin 6.7 g/dL (12.0-15.5) 8.2 g/dL (12.0-15.5) 7.5 g/dL (12.0-15.5) Hematocrit 20.9 % (36.0-47.0) 23.1 % (36.0-47.0) 21.6 % (36.0-47.0) Mean Corpuscular Volume 89 fL (79-100) 84 fL (79-100) 85 fL (79-100) Mean Corpuscular Hemoglobin 28 pg (25-35) 30 pg (25-35) 29 pg (25-35) Mean Corpuscular Hemoglobin Concent 32 g/dL (31-37) 36 g/dL (31-37) 35 g/dL (31-37) Red Cell Distribution Width 16.7 % (11.5-14.5) 14.8 % (11.5-14.5) 14.8 % (11.5-14.5) Platelet Count 335 x10^3/uL (140-400) 211 x10^3/uL (140-400) 253 x10^3/uL (140-400) Sodium Level 138 mmol/L (136-145) 138 mmol/L (136-145) Potassium Level 4.3 mmol/L (3.5-5.1) 3.9 mmol/L (3.5-5.1) Chloride Level 107 mmol/L (98-107) 104 mmol/L (98-107) Carbon Dioxide Level 15 mmol/L (21-32) 26 mmol/L (21-32) Anion Gap 16 (6-14) 8 (6-14) Blood Urea Nitrogen 11 mg/dL (7-20) 19 mg/dL (7-20) Creatinine 0.7 mg/dL (0.6-1.0) 0.8 mg/dL (0.6-1.0) Estimated GFR (Cockcroft-Gault) 88.9 76.2 Glucose Level 169 mg/dL (70-99) 264 mg/dL (70-99) Calcium Level 7.5 mg/dL (8.5-10.1) 9.2 mg/dL (8.5-10.1) Magnesium Level 1.4 mg/dL (1.8-2.4) 2.1 mg/dL (1.8-2.4) O2 Saturation 99 % (92-99) Arterial Blood pH 7.25 (7.35-7.45) Arterial Blood pCO2 at Patient Temp 32 mmHg (35-46) Arterial Blood pO2 at Patient Temp 374 mmHg (75-108) Arterial Blood HCO3 13 mmol/L (21-28) Arterial Blood Base Excess -13 mmol/L (-3-3) FiO2 80%+5 Neutrophils (%) (Auto) 85 % (31-73) Lymphocytes (%) (Auto) 8 % (24-48) Monocytes (%) (Auto) 6 % (0-9) Eosinophils (%) (Auto) 0 % (0-3) Basophils (%) (Auto) 0 % (0-3) Neutrophils # (Auto) 16.1 x10^3/uL (1.8-7.7) Lymphocytes # (Auto) 1.5 x10^3/uL (1.0-4.8) Monocytes # (Auto) 1.2 x10^3/uL (0.0-1.1) Eosinophils # (Auto) 0.0 x10^3/uL (0.0-0.7) Basophils # (Auto) 0.1 x10^3/uL (0.0-0.2) Phosphorus Level 3.5 mg/dL (2.6-4.7) Test 10/19/19 06:06 10/19/19 08:30 10/19/19 11:55 Glucose (Fingerstick) 249 mg/dL (70-99) 235 mg/dL (70-99) O2 Saturation 98 % (92-99) 97 % (92-99) Arterial Blood pH 7.60 (7.35-7.45) 7.38 (7.35-7.45) Arterial Blood pCO2 at Patient Temp 22 mmHg (35-46) 38 mmHg (35-46) Arterial Blood pO2 at Patient Temp 120 mmHg (75-108) 111 mmHg (75-108) Arterial Blood HCO3 21 mmol/L (21-28) 22 mmol/L (21-28) Arterial Blood Base Excess 0 mmol/L (-3-3) -3 mmol/L (-3-3) FiO2 40 40 Problem List Problems Medical Problems: (1) Acute pancreatitis Status: Acute (2) Cholelithiasis Status: Acute Assessment/Plan s/p xlap-appears improved, cont drains, will start trophic tube feeds. Justicifation of Admission Dx: Justifications for Admission: Justification of Admission Dx: Yes DAVON SIMMS MD Oct 19, 2019 14:33
[2019-10-19] MEDS: TPN PER PHARMACY MC PRN (14:50)
--- NOTE | 2019-10-19 14:54 | NUR ---
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, 8 inches Weight: 86.539429 kg Current diet: NPO LABS: Sodium: 138 Potassium: 3.9 Chloride: 104 Calcium: 9.2 Corrected Calcium: 11.52 Magnesium: 2.1 CO2: 34 SCr: 0.5 Glucose: 235 Albumin: 1.1 AST: 18 ALT: 12 TPN FORMULA: TPN TYPE: Central Continuous AMINO ACIDS: 80 gm DEXTROSE: 250 gm LIPIDS: 20 gm SODIUM CHLORIDE: 80 mEq SODIUM ACETATE: - mEq SODIUM PHOSPHATE: - mmol POTASSIUM CHLORIDE: 30 mEq POTASSIUM ACETATE: 30 mEq POTASSIUM PHOSPHATE: - mmol MAGNESIUM: 14 mEq CALCIUM: - mEq INSULIN: 15 units MULTIPLE VITAMIN: 10 ml TRACE ELEMENTS: 1 ml(s) TPN PLAN: Continue same TPN til tf at goal. R: Continue TPN at 80 ml/hr tonight Will monitor electrolytes, glucose, and tolerance to TPN. KRISTIAN APODACA [facility], 10/19/19 [id number]
[2019-10-19] MEDS: IV NORMAL SALINE 1000ML BAG 1,000 ML IV SCH (15:28)
[2019-10-19 16:41] LABS: HEMATOCRIT 21.4 % (36.0-47.0); HEMOGLOBIN 7.3 g/dL (12.0-15.5)
--- NOTE | 2019-10-19 17:00 | NUR ---
Wound Care Incisional wound vac paced over midline incision with parrish per Dr Servin. Periwound draped, contact layer placed over incision line with silver foam at 125 mmHg continuous suction. All drain sponges changed on surrounding drains. Pt has old drain site on proximal right side of incision, this too was covered with contact layer and silver foam and placed in vac. No other wounds noted on skin inspection. Pt is very edematous. Pt on ICU bed, turned to left side with heels floated and all drain tubes adjusted. WC will continue to follow for possible changes.
[2019-10-19] MEDS: DAPTOmycin (GENERIC) IVPB 500 MG in IV NORMAL SALINE 50ML 50 ML IV SCH (19:22)
[2019-10-19] MEDS ORDERED: DEXTROSE 70% IV SCH ×10 (22:00)
[2019-10-19] MEDS ORDERED: AMINO ACID IV SCH ×10 (22:00)
[2019-10-19] MEDS ORDERED: [UNRECOGNIZED DRUG - OTHER] IV SCH ×10 (22:00)
[2019-10-19] MEDS ORDERED: TOTAL PARENTERAL NUTRITION IV SCH ×10 (22:00)
[2019-10-20] VITALS (24 sets, daily range): BP systolic 88–157; BP diastolic 48–99
[2019-10-20] MEDS: INSULIN LISPRO 300 UNITS/3 ML VIAL. SQ SCH ×4 (00:23→18:11)
[2019-10-20] MEDS: VASOPRESSIN 20 UNIT in IV DEXTROSE 5% 100ML 100 ML IV PRN ×3 (02:21→21:38)
[2019-10-20] MEDS: MIDAZOLAM HCL 100 MG in IV NORMAL SALINE 100ML 100 ML IV PRN ×3 (02:21→21:38)
[2019-10-20] MEDS: IPRATRPIUM/ALBUTEROL 0.5/2.5MG 3 ML NEBU. NEB SCH ×5 (04:30→20:17)
[2019-10-20] MEDS: MEROPENEM 500 MG in IV NORMAL SALINE 50ML 50 ML IV SCH ×3 (05:51→18:08)
[2019-10-20 06:26] LABS: HEMATOCRIT 26.8 % (36.0-47.0); RED BLOOD COUNT 3.06 x10^6/uL (3.50-5.40); RED CELL DISTRIBUTION WIDTH 14.8 % (11.5-14.5); WHITE BLOOD COUNT 38.3 x10^3/uL (4.0-11.0)
[2019-10-20 06:40] LABS: CALCIUM 8.9 mg/dL (8.5-10.1); CREATININE 0.7 mg/dL (0.6-1.0); GFR 88.9; MAGNESIUM 2.1 mg/dL (1.8-2.4)
[2019-10-20] MEDS: ACETYLCYSTEINE 20% for RESP TX 600 MG/3 ML. NEB SCH ×2 (08:00→20:17)
[2019-10-20] MEDS: ENOXAPARIN 40 MG/0.4 ML SYRINGE. SQ SCH (08:00)
--- NOTE | 2019-10-20 08:38 | NUR ---
Non administered 10/18 and 10/[address] Servin
[2019-10-20] MEDS: PANTOPRAZOLE IV PUSH 40 MG VIAL. IVP SCH (08:51)
[2019-10-20] MEDS: MICAFUNGIN 100 MG in IV DEXTROSE 5% 100ML 100 ML IV SCH (08:52)
[2019-10-20 08:55] LABS: BASE EXCESS ABG -2 mmol/L (-3-3); HCO3 ABG 23 mmol/L (21-28); PCO2 ABG 41 mmHg (35-46); PO2 ABG 127 mmHg (75-108); SAT O2 ABG 98 % (92-99)
[2019-10-20 09:05] LABS: FIO2 ABG 40
[2019-10-20] MEDS: NOREPINEPHRINE VIAL 8 MG in IV DEXTROSE 5% 250 ML IV PRN (09:09)
--- NOTE | 2019-10-20 09:23 | PDOC ---
SURGICAL PROGRESS NOTE Subjective Patient is intubated and sedated Vital Signs Vital Signs Date Time Temp Pulse Resp B/P (MAP) Pulse Ox O2 Delivery O2 Flow Rate FiO2 10/20/19 08:37 18 99 10/20/19 08:00 Mechanical Ventilator 10/20/19 08:00 76 109/80 (90) 10/20/19 06:41 40.0 10/20/19 04:00 99.2 99.2 I&O Intake and Output 10/20/19 07:00 Intake Total 4244.80 ml Output Total 2435 ml Balance 1809.80 ml IV Total 3391.80 ml Tube Feeding 304 ml Blood Product IV Normal Saline Flush 449 ml Other 100 ml Output Urine Total 750 ml Gastric Drainage Total 150 ml Chest Tube Drainage Total 160 ml Drainage Total 1375 ml PATIENT HAS A ROSARIO: Yes General: Other (Sedated) HEENT: Other (NG tube in place) Lungs: Clear to auscultation, Normal air movement Abdomen: Other (Abdomen is soft wounds dressed drains in place pancreatic drains draining dark fluid tube feeds through her J-tube at 10 cc an hour) Extremities: Other (Diffuse edema) Labs Laboratory Tests Test 10/18/19 09:52 10/18/19 15:30 10/18/19 16:10 10/18/19 21:30 Glucose (Fingerstick) 105 mg/dL (70-99) White Blood Count 49.3 x10^3/uL (4.0-11.0) 21.5 x10^3/uL (4.0-11.0) Red Blood Count 2.36 x10^6/uL (3.50-5.40) 2.77 x10^6/uL (3.50-5.40) Hemoglobin 6.7 g/dL (12.0-15.5) 8.2 g/dL (12.0-15.5) Hematocrit 20.9 % (36.0-47.0) 23.1 % (36.0-47.0) Mean Corpuscular Volume 89 fL (79-100) 84 fL (79-100) Mean Corpuscular Hemoglobin 28 pg (25-35) 30 pg (25-35) Mean Corpuscular Hemoglobin Concent 32 g/dL (31-37) 36 g/dL (31-37) Red Cell Distribution Width 16.7 % (11.5-14.5) 14.8 % (11.5-14.5) Platelet Count 335 x10^3/uL (140-400) 211 x10^3/uL (140-400) Sodium Level 138 mmol/L (136-145) Potassium Level 4.3 mmol/L (3.5-5.1) Chloride Level 107 mmol/L (98-107) Carbon Dioxide Level 15 mmol/L (21-32) Anion Gap 16 (6-14) Blood Urea Nitrogen 11 mg/dL (7-20) Creatinine 0.7 mg/dL (0.6-1.0) Estimated GFR (Cockcroft-Gault) 88.9 Glucose Level 169 mg/dL (70-99) Calcium Level 7.5 mg/dL (8.5-10.1) Magnesium Level 1.4 mg/dL (1.8-2.4) O2 Saturation 99 % (92-99) Arterial Blood pH 7.25 (7.35-7.45) Arterial Blood pCO2 at Patient Temp 32 mmHg (35-46) Arterial Blood pO2 at Patient Temp 374 mmHg (75-108) Arterial Blood HCO3 13 mmol/L (21-28) Arterial Blood Base Excess -13 mmol/L (-3-3) FiO2 80%+5 Test 10/19/19 06:00 10/19/19 06:06 10/19/19 08:30 10/19/19 11:55 White Blood Count 18.9 x10^3/uL (4.0-11.0) Red Blood Count 2.55 x10^6/uL (3.50-5.40) Hemoglobin 7.5 g/dL (12.0-15.5) Hematocrit 21.6 % (36.0-47.0) Mean Corpuscular Volume 85 fL (79-100) Mean Corpuscular Hemoglobin 29 pg (25-35) Mean Corpuscular Hemoglobin Concent 35 g/dL (31-37) Red Cell Distribution Width 14.8 % (11.5-14.5) Platelet Count 253 x10^3/uL (140-400) Neutrophils (%) (Auto) 85 % (31-73) Lymphocytes (%) (Auto) 8 % (24-48) Monocytes (%) (Auto) 6 % (0-9) Eosinophils (%) (Auto) 0 % (0-3) Basophils (%) (Auto) 0 % (0-3) Neutrophils # (Auto) 16.1 x10^3/uL (1.8-7.7) Lymphocytes # (Auto) 1.5 x10^3/uL (1.0-4.8) Monocytes # (Auto) 1.2 x10^3/uL (0.0-1.1) Eosinophils # (Auto) 0.0 x10^3/uL (0.0-0.7) Basophils # (Auto) 0.1 x10^3/uL (0.0-0.2) Sodium Level 138 mmol/L (136-145) Potassium Level 3.9 mmol/L (3.5-5.1) Chloride Level 104 mmol/L (98-107) Carbon Dioxide Level 26 mmol/L (21-32) Anion Gap 8 (6-14) Blood Urea Nitrogen 19 mg/dL (7-20) Creatinine 0.8 mg/dL (0.6-1.0) Estimated GFR (Cockcroft-Gault) 76.2 Glucose Level 264 mg/dL (70-99) Calcium Level 9.2 mg/dL (8.5-10.1) Phosphorus Level 3.5 mg/dL (2.6-4.7) Magnesium Level 2.1 mg/dL (1.8-2.4) Glucose (Fingerstick) 249 mg/dL (70-99) 235 mg/dL (70-99) O2 Saturation 98 % (92-99) 97 % (92-99) Arterial Blood pH 7.60 (7.35-7.45) 7.38 (7.35-7.45) Arterial Blood pCO2 at Patient Temp 22 mmHg (35-46) 38 mmHg (35-46) Arterial Blood pO2 at Patient Temp 120 mmHg (75-108) 111 mmHg (75-108) Arterial Blood HCO3 21 mmol/L (21-28) 22 mmol/L (21-28) Arterial Blood Base Excess 0 mmol/L (-3-3) -3 mmol/L (-3-3) FiO2 40 40 Test 10/19/19 16:30 10/19/19 17:49 10/20/19 00:19 10/20/19 06:09 Hemoglobin 7.3 g/dL (12.0-15.5) Hematocrit 21.4 % (36.0-47.0) Mean Corpuscular Hemoglobin Concent 34 g/dL (31-37) Glucose (Fingerstick) 201 mg/dL (70-99) 200 mg/dL (70-99) 157 mg/dL (70-99) Test 10/20/19 06:10 10/20/19 08:00 White Blood Count 38.3 x10^3/uL (4.0-11.0) Red Blood Count 3.06 x10^6/uL (3.50-5.40) Hemoglobin 9.0 g/dL (12.0-15.5) Hematocrit 26.8 % (36.0-47.0) Mean Corpuscular Volume 88 fL (79-100) Mean Corpuscular Hemoglobin 29 pg (25-35) Mean Corpuscular Hemoglobin Concent 34 g/dL (31-37) Red Cell Distribution Width 14.8 % (11.5-14.5) Platelet Count 278 x10^3/uL (140-400) Sodium Level 134 mmol/L (136-145) Potassium Level 4.0 mmol/L (3.5-5.1) Chloride Level 103 mmol/L (98-107) Carbon Dioxide Level 28 mmol/L (21-32) Anion Gap 3 (6-14) Blood Urea Nitrogen 24 mg/dL (7-20) Creatinine 0.7 mg/dL (0.6-1.0) Estimated GFR (Cockcroft-Gault) 88.9 Glucose Level 178 mg/dL (70-99) Calcium Level 8.9 mg/dL (8.5-10.1) Phosphorus Level 4.2 mg/dL (2.6-4.7) Magnesium Level 2.1 mg/dL (1.8-2.4) O2 Saturation 98 % (92-99) Arterial Blood pH 7.36 (7.35-7.45) Arterial Blood pCO2 at Patient Temp 41 mmHg (35-46) Arterial Blood pO2 at Patient Temp 127 mmHg (75-108) Arterial Blood HCO3 23 mmol/L (21-28) Arterial Blood Base Excess -2 mmol/L (-3-3) FiO2 40 Laboratory Tests Test 10/19/19 11:55 10/19/19 16:30 10/19/19 17:49 10/20/19 00:19 O2 Saturation 97 % (92-99) Arterial Blood pH 7.38 (7.35-7.45) Arterial Blood pCO2 at Patient Temp 38 mmHg (35-46) Arterial Blood pO2 at Patient Temp 111 mmHg (75-108) Arterial Blood HCO3 22 mmol/L (21-28) Arterial Blood Base Excess -3 mmol/L (-3-3) FiO2 40 Glucose (Fingerstick) 235 mg/dL (70-99) 201 mg/dL (70-99) 200 mg/dL (70-99) Hemoglobin 7.3 g/dL (12.0-15.5) Hematocrit 21.4 % (36.0-47.0) Mean Corpuscular Hemoglobin Concent 34 g/dL (31-37) Test 10/20/19 06:09 10/20/19 06:10 10/20/19 08:00 Glucose (Fingerstick) 157 mg/dL (70-99) White Blood Count 38.3 x10^3/uL (4.0-11.0) Red Blood Count 3.06 x10^6/uL (3.50-5.40) Hemoglobin 9.0 g/dL (12.0-15.5) Hematocrit 26.8 % (36.0-47.0) Mean Corpuscular Volume 88 fL (79-100) Mean Corpuscular Hemoglobin 29 pg (25-35) Mean Corpuscular Hemoglobin Concent 34 g/dL (31-37) Red Cell Distribution Width 14.8 % (11.5-14.5) Platelet Count 278 x10^3/uL (140-400) Sodium Level 134 mmol/L (136-145) Potassium Level 4.0 mmol/L (3.5-5.1) Chloride Level 103 mmol/L (98-107) Carbon Dioxide Level 28 mmol/L (21-32) Anion Gap 3 (6-14) Blood Urea Nitrogen 24 mg/dL (7-20) Creatinine 0.7 mg/dL (0.6-1.0) Estimated GFR (Cockcroft-Gault) 88.9 Glucose Level 178 mg/dL (70-99) Calcium Level 8.9 mg/dL (8.5-10.1) Phosphorus Level 4.2 mg/dL (2.6-4.7) Magnesium Level 2.1 mg/dL (1.8-2.4) O2 Saturation 98 % (92-99) Arterial Blood pH 7.36 (7.35-7.45) Arterial Blood pCO2 at Patient Temp 41 mmHg (35-46) Arterial Blood pO2 at Patient Temp 127 mmHg (75-108) Arterial Blood HCO3 23 mmol/L (21-28) Arterial Blood Base Excess -2 mmol/L (-3-3) FiO2 40 Problem List Problems Medical Problems: (1) Acute pancreatitis Status: Acute (2) Cholelithiasis Status: Acute Assessment/Plan Status post pancreatic debridement with drains Awaiting return of bowel function to increase tube feeds Supportive care Wean pressors as tolerated Justicifation of Admission Dx: Justifications for Admission: Justification of Admission Dx: Yes CARIN MALDONADO MD Oct 20, 2019 09:23
--- NOTE | 2019-10-20 09:30 | PDOC ---
Infectious Disease Note Subjective Subjective Trach/vent FiO2 40% satting 100% No fevers last 24 hrs Tube feedings 10 ml/hr On vasopressin and low levophed gtt No BM ROS ROS unobtainable due to patient's condition Vital Sign Vital Signs Vital Signs Date Time Temp Pulse Resp B/P (MAP) Pulse Ox O2 Delivery O2 Flow Rate FiO2 10/20/19 08:37 18 99 10/20/19 08:00 76 109/80 (90) Ventilator 10/20/19 06:41 40.0 10/20/19 04:00 99.2 99.2 Physical Exam PHYSICAL EXAM GENERAL: Sedated, ill appearing HEENT: Oral cavity dry. + NGT NECK: Tracheostomy LUNGS: Diminished aeration bases, CT on left HEART: S1, S2, regular w/ PVCs ABDOMEN: Mild distention, bowel sounds hypoactive, soft, yoselin x2, 3 KAYLIN drains, G-J tube and + wound vac : Lind EXTREMITIES: Generalized edema, no cyanosis. SCDs & Podus boots bilaterally SKIN: warm touch. No signs of rash. LUE-PICC, left art-line without signs of complications Labs Lab Laboratory Tests Test 10/19/19 11:55 10/19/19 16:30 10/19/19 17:49 10/20/19 00:19 O2 Saturation 97 % (92-99) Arterial Blood pH 7.38 (7.35-7.45) Arterial Blood pCO2 at Patient Temp 38 mmHg (35-46) Arterial Blood pO2 at Patient Temp 111 mmHg (75-108) Arterial Blood HCO3 22 mmol/L (21-28) Arterial Blood Base Excess -3 mmol/L (-3-3) FiO2 40 Glucose (Fingerstick) 235 mg/dL (70-99) 201 mg/dL (70-99) 200 mg/dL (70-99) Hemoglobin 7.3 g/dL (12.0-15.5) Hematocrit 21.4 % (36.0-47.0) Mean Corpuscular Hemoglobin Concent 34 g/dL (31-37) Test 10/20/19 06:09 10/20/19 06:10 Glucose (Fingerstick) 157 mg/dL (70-99) White Blood Count 38.3 x10^3/uL (4.0-11.0) Red Blood Count 3.06 x10^6/uL (3.50-5.40) Hemoglobin 9.0 g/dL (12.0-15.5) Hematocrit 26.8 % (36.0-47.0) Mean Corpuscular Volume 88 fL (79-100) Mean Corpuscular Hemoglobin 29 pg (25-35) Mean Corpuscular Hemoglobin Concent 34 g/dL (31-37) Red Cell Distribution Width 14.8 % (11.5-14.5) Platelet Count 278 x10^3/uL (140-400) Sodium Level 134 mmol/L (136-145) Potassium Level 4.0 mmol/L (3.5-5.1) Chloride Level 103 mmol/L (98-107) Carbon Dioxide Level 28 mmol/L (21-32) Anion Gap 3 (6-14) Blood Urea Nitrogen 24 mg/dL (7-20) Creatinine 0.7 mg/dL (0.6-1.0) Estimated GFR (Cockcroft-Gault) 88.9 Glucose Level 178 mg/dL (70-99) Calcium Level 8.9 mg/dL (8.5-10.1) Phosphorus Level 4.2 mg/dL (2.6-4.7) Magnesium Level 2.1 mg/dL (1.8-2.4) Micro 10/15. BLOOD CULTURE Preliminary NO GROWTH AFTER 3 DAYS Objective Assessment Patient with prolonged hospitalization more than 3 months Multiple medical problems Multiple surgical procedures S/P Exp. Lap, SAURABH, subtotal cholecystectomy with cholangiogram, G-J tube placement & pancreatic necrosectomy on October 17 YEAST Leucocytosis - leukomoid reaction likely postoperative Fever intermittently source likely GI Acute gallstone pancreatitis with persistent necrosis -CT a/p 07/27. Increased ascites. 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 status post KAYLIN drain placement; C. parapsilosis. s/p drain 08/23 + yeast & high amylase; s/p additional drain on 08/25. Drains removed. -08/23. fluid devyn parapsilosis fluid, amylase high - 09/23 showed multiple pseudocysts, slight larger on the right. s/p drains x 3, /. + PSAE (MDRO-R Cefepime, Zosyn ALEXANDRA < 64) and yeast, -6/7 s/p drain replacement x 3; fluid cult PSAE (MDRO), yeast; treated Ascites s/p paracentesis 08/02 & 08/23. C. parapsilosis Cholelithiasis with thickening of the gallbladder wall. JUANA, Hyperkalemia, Metabolic acidosis off dialysis Acute hypoxic resp failure. trach/vent. sputum 09/30 + PSAE (I merrem) Pleural effusions s/p left thoracentesis, 08/29. no culture. s/p left chest tube, 10/02 no growth Hypocalcemia Prediabetes HTN Anemia s/p RBCs Plan Plan of Care continue dapto, merrem and micafungin Monitor labs/cults wound care /drain management as directed Contact isolation for CRE/MDRO Critically ill D/w nursing Attending Co-Sign Attending Co-Sign The patient was seen and interviewed as well as examined at the bedside. The chart was reviewed. The case was discussed. Agree with the plan of care. FRANCA HOBSON APRN Oct 20, 2019 09:30 WILLY BARAKAT MD Oct 20, 2019 15:45
--- NOTE | 2019-10-20 09:31 | PDOC ---
PULMONARY PROGRESS NOTES Subjective Patient had surgery now back on assist control ventilation Vitals Vital Signs Date Time Temp Pulse Resp B/P (MAP) Pulse Ox O2 Delivery O2 Flow Rate FiO2 10/20/19 09:00 98.6 87 20 130/60 (83) 99 Ventilator 98.6 10/20/19 06:41 40.0 General: Alert Lungs: Crackles Cardiovascular: S1, S2 Abdomen: Soft, Non-tender, Other (multiple KAYLIN drains ) Extremities: Other (+1 BLE edema) Skin: Warm Labs Laboratory Tests Test 10/18/19 09:52 10/18/19 15:30 10/18/19 16:10 10/18/19 21:30 Glucose (Fingerstick) 105 mg/dL (70-99) White Blood Count 49.3 x10^3/uL (4.0-11.0) 21.5 x10^3/uL (4.0-11.0) Red Blood Count 2.36 x10^6/uL (3.50-5.40) 2.77 x10^6/uL (3.50-5.40) Hemoglobin 6.7 g/dL (12.0-15.5) 8.2 g/dL (12.0-15.5) Hematocrit 20.9 % (36.0-47.0) 23.1 % (36.0-47.0) Mean Corpuscular Volume 89 fL (79-100) 84 fL (79-100) Mean Corpuscular Hemoglobin 28 pg (25-35) 30 pg (25-35) Mean Corpuscular Hemoglobin Concent 32 g/dL (31-37) 36 g/dL (31-37) Red Cell Distribution Width 16.7 % (11.5-14.5) 14.8 % (11.5-14.5) Platelet Count 335 x10^3/uL (140-400) 211 x10^3/uL (140-400) Sodium Level 138 mmol/L (136-145) Potassium Level 4.3 mmol/L (3.5-5.1) Chloride Level 107 mmol/L (98-107) Carbon Dioxide Level 15 mmol/L (21-32) Anion Gap 16 (6-14) Blood Urea Nitrogen 11 mg/dL (7-20) Creatinine 0.7 mg/dL (0.6-1.0) Estimated GFR (Cockcroft-Gault) 88.9 Glucose Level 169 mg/dL (70-99) Calcium Level 7.5 mg/dL (8.5-10.1) Magnesium Level 1.4 mg/dL (1.8-2.4) O2 Saturation 99 % (92-99) Arterial Blood pH 7.25 (7.35-7.45) Arterial Blood pCO2 at Patient Temp 32 mmHg (35-46) Arterial Blood pO2 at Patient Temp 374 mmHg (75-108) Arterial Blood HCO3 13 mmol/L (21-28) Arterial Blood Base Excess -13 mmol/L (-3-3) FiO2 80%+5 Test 10/19/19 06:00 10/19/19 06:06 10/19/19 08:30 10/19/19 11:55 White Blood Count 18.9 x10^3/uL (4.0-11.0) Red Blood Count 2.55 x10^6/uL (3.50-5.40) Hemoglobin 7.5 g/dL (12.0-15.5) Hematocrit 21.6 % (36.0-47.0) Mean Corpuscular Volume 85 fL (79-100) Mean Corpuscular Hemoglobin 29 pg (25-35) Mean Corpuscular Hemoglobin Concent 35 g/dL (31-37) Red Cell Distribution Width 14.8 % (11.5-14.5) Platelet Count 253 x10^3/uL (140-400) Neutrophils (%) (Auto) 85 % (31-73) Lymphocytes (%) (Auto) 8 % (24-48) Monocytes (%) (Auto) 6 % (0-9) Eosinophils (%) (Auto) 0 % (0-3) Basophils (%) (Auto) 0 % (0-3) Neutrophils # (Auto) 16.1 x10^3/uL (1.8-7.7) Lymphocytes # (Auto) 1.5 x10^3/uL (1.0-4.8) Monocytes # (Auto) 1.2 x10^3/uL (0.0-1.1) Eosinophils # (Auto) 0.0 x10^3/uL (0.0-0.7) Basophils # (Auto) 0.1 x10^3/uL (0.0-0.2) Sodium Level 138 mmol/L (136-145) Potassium Level 3.9 mmol/L (3.5-5.1) Chloride Level 104 mmol/L (98-107) Carbon Dioxide Level 26 mmol/L (21-32) Anion Gap 8 (6-14) Blood Urea Nitrogen 19 mg/dL (7-20) Creatinine 0.8 mg/dL (0.6-1.0) Estimated GFR (Cockcroft-Gault) 76.2 Glucose Level 264 mg/dL (70-99) Calcium Level 9.2 mg/dL (8.5-10.1) Phosphorus Level 3.5 mg/dL (2.6-4.7) Magnesium Level 2.1 mg/dL (1.8-2.4) Glucose (Fingerstick) 249 mg/dL (70-99) 235 mg/dL (70-99) O2 Saturation 98 % (92-99) 97 % (92-99) Arterial Blood pH 7.60 (7.35-7.45) 7.38 (7.35-7.45) Arterial Blood pCO2 at Patient Temp 22 mmHg (35-46) 38 mmHg (35-46) Arterial Blood pO2 at Patient Temp 120 mmHg (75-108) 111 mmHg (75-108) Arterial Blood HCO3 21 mmol/L (21-28) 22 mmol/L (21-28) Arterial Blood Base Excess 0 mmol/L (-3-3) -3 mmol/L (-3-3) FiO2 40 40 Test 10/19/19 16:30 10/19/19 17:49 10/20/19 00:19 10/20/19 06:09 Hemoglobin 7.3 g/dL (12.0-15.5) Hematocrit 21.4 % (36.0-47.0) Mean Corpuscular Hemoglobin Concent 34 g/dL (31-37) Glucose (Fingerstick) 201 mg/dL (70-99) 200 mg/dL (70-99) 157 mg/dL (70-99) Test 10/20/19 06:10 10/20/19 08:00 White Blood Count 38.3 x10^3/uL (4.0-11.0) Red Blood Count 3.06 x10^6/uL (3.50-5.40) Hemoglobin 9.0 g/dL (12.0-15.5) Hematocrit 26.8 % (36.0-47.0) Mean Corpuscular Volume 88 fL (79-100) Mean Corpuscular Hemoglobin 29 pg (25-35) Mean Corpuscular Hemoglobin Concent 34 g/dL (31-37) Red Cell Distribution Width 14.8 % (11.5-14.5) Platelet Count 278 x10^3/uL (140-400) Sodium Level 134 mmol/L (136-145) Potassium Level 4.0 mmol/L (3.5-5.1) Chloride Level 103 mmol/L (98-107) Carbon Dioxide Level 28 mmol/L (21-32) Anion Gap 3 (6-14) Blood Urea Nitrogen 24 mg/dL (7-20) Creatinine 0.7 mg/dL (0.6-1.0) Estimated GFR (Cockcroft-Gault) 88.9 Glucose Level 178 mg/dL (70-99) Calcium Level 8.9 mg/dL (8.5-10.1) Phosphorus Level 4.2 mg/dL (2.6-4.7) Magnesium Level 2.1 mg/dL (1.8-2.4) O2 Saturation 98 % (92-99) Arterial Blood pH 7.36 (7.35-7.45) Arterial Blood pCO2 at Patient Temp 41 mmHg (35-46) Arterial Blood pO2 at Patient Temp 127 mmHg (75-108) Arterial Blood HCO3 23 mmol/L (21-28) Arterial Blood Base Excess -2 mmol/L (-3-3) FiO2 40 Laboratory Tests Test 10/19/19 11:55 10/19/19 16:30 10/19/19 17:49 10/20/19 00:19 O2 Saturation 97 % (92-99) Arterial Blood pH 7.38 (7.35-7.45) Arterial Blood pCO2 at Patient Temp 38 mmHg (35-46) Arterial Blood pO2 at Patient Temp 111 mmHg (75-108) Arterial Blood HCO3 22 mmol/L (21-28) Arterial Blood Base Excess -3 mmol/L (-3-3) FiO2 40 Glucose (Fingerstick) 235 mg/dL (70-99) 201 mg/dL (70-99) 200 mg/dL (70-99) Hemoglobin 7.3 g/dL (12.0-15.5) Hematocrit 21.4 % (36.0-47.0) Mean Corpuscular Hemoglobin Concent 34 g/dL (31-37) Test 10/20/19 06:09 10/20/19 06:10 10/20/19 08:00 Glucose (Fingerstick) 157 mg/dL (70-99) White Blood Count 38.3 x10^3/uL (4.0-11.0) Red Blood Count 3.06 x10^6/uL (3.50-5.40) Hemoglobin 9.0 g/dL (12.0-15.5) Hematocrit 26.8 % (36.0-47.0) Mean Corpuscular Volume 88 fL (79-100) Mean Corpuscular Hemoglobin 29 pg (25-35) Mean Corpuscular Hemoglobin Concent 34 g/dL (31-37) Red Cell Distribution Width 14.8 % (11.5-14.5) Platelet Count 278 x10^3/uL (140-400) Sodium Level 134 mmol/L (136-145) Potassium Level 4.0 mmol/L (3.5-5.1) Chloride Level 103 mmol/L (98-107) Carbon Dioxide Level 28 mmol/L (21-32) Anion Gap 3 (6-14) Blood Urea Nitrogen 24 mg/dL (7-20) Creatinine 0.7 mg/dL (0.6-1.0) Estimated GFR (Cockcroft-Gault) 88.9 Glucose Level 178 mg/dL (70-99) Calcium Level 8.9 mg/dL (8.5-10.1) Phosphorus Level 4.2 mg/dL (2.6-4.7) Magnesium Level 2.1 mg/dL (1.8-2.4) O2 Saturation 98 % (92-99) Arterial Blood pH 7.36 (7.35-7.45) Arterial Blood pCO2 at Patient Temp 41 mmHg (35-46) Arterial Blood pO2 at Patient Temp 127 mmHg (75-108) Arterial Blood HCO3 23 mmol/L (21-28) Arterial Blood Base Excess -2 mmol/L (-3-3) FiO2 40 Medications Active Scripts Medications Dose Route/Sig Max Daily Dose Days Date Category Bisoprolol Fumarate 5 Mg Tablet 10 Mg PO DAILY 07/04/19 Reported Comments CXR 10/16/19 IMPRESSION: No significant interval change compared to 10/13/2019. ct abdomen /pelvis 09/23 1. Removal of the percutaneous pigtail drainage catheters since the prior exam. Sequela of pancreatitis with extensive pseudocysts again demonstrated, the right-sided collections are slightly larger since the prior exam, the left-sided collections are stable. See above. 2. Moderate to large left pleural effusion with atelectasis and collapse of most of the left lower lobe, stable. Small right pleural effusion is stable. 3. Gallstone. ct chest 10/02 reviewed GRAM NEG COCCOBACILLI:MANY SQUAMOUS EPI CELL:RARE PMN (WBCs):FEW Unless otherwise specified, Testing Performed by: [address] [address] For Inquires, the Physician may contact the Microbiology department at [phone] RESPIRATORY CULTURE Final Final MANY GRAM NEGATIVE RODS on 10/03/19 at 1107 FINAL ID= [PSEUDOMONAS [email or web address]] MICRO CHARGES PSEUDOMONAS AERUGINOSA ANTIMICROBIAL SUSCEPTIBILITY Final Comment NEG ALEXANDRA 56 PSEUDOMONAS AERUGINOSA ANTIBIOTIC RESULT INTERPRETATION AMIKACIN <=16 S AZTREONAM <=4 S CEFTAZIDIME <=1 S CIPROFLOXACIN <=0.25 S CEFEPIME <=2 S CEFTAZIDIME/AVIBACTAM <=4 S GENTAMICIN <=2 S LEVOFLOXACIN <=0.5 S Impression . IMPRESSION: 1. Acute hypoxemic respiratory failure secondary to ARDS status post trach, developed anemia 09/24, blood drainage from RLQ abdomen drain site, and surrounding firmness / developed septic shock 09/24 from abdomen source, required levo /7 s/p 3 new drains / with brown color drainage, on/off vent , on TS now 2. Gallstone pancreatitis, now with ongoing bleeding from prior drain. Anemic. s/p Tx multiple units over several days 3. septic shock/sepsis, recurrent 09/24, source abdomen. , off levo now, 4. Acute kidney injury-, Off HD--renal function decling. suspect JUANA on CKD due to hypotension , improved now 5. Acute gallstone pancreatitis. 6. Hypoalbuminemia. 7. Moderate persistent effusions, s/p left thora 08/29, reaccumulation of left effusion. O2 requirement not changed. 8. Fever- ,hypotension. suspect recurrent sepsis/ likely pancreatic source. Per ID, per surgery-- 9. Chronic anemia-- ongoing / s/p PRBC 10. Covid 19 testing negative 11. Moderate to large ascites-S/P paracentisis 12.S/P paracentisis with 4 liters removed on 08/03/19 13. S/P IR drain placement on 08/26/2019, removal, re inserted 09/24 14. Depression/Anxiety 15. Increase effusion, ? loculated/ s/p chest tube.. drainage slowing down. 200 cc /24 hr 10/17 Exploratory laparotomy, lysis of adhesions, subtotal cholecystectomy with cholangiogram, gastrojejunostomy tube placement, pancreatic necrosectomy Plan . We will continue assist control ventilation Multiple drains in place OR note Anticoagulation for DVT prophylaxis Antibiotics per ID Pressors for hypotension IV fluids Follow labs. CC time 30 minutes HARMEET BEE MD Oct 20, 2019 09:31
--- NOTE | 2019-10-20 09:50 | NUR ---
SS following up with discharge planning. SS reviewed pt chart and discussed with pt RN. No new changes today. Pt had surgery, 10/18/2019. Pt currently on vent with NG tube and J tube. Pt has chest tube, KAYLIN drains x3, Mook drains x2. Pt on TPN and IV Micafungin, Daptomycin, and Meropenem. Pt received one unit of blood last night. SS will continue to follow for discharge planning.
--- NOTE | 2019-10-20 10:46 | PDOC ---
Objective: Objective: Reviewed w/ nurse - on pressor, started tube feeds. Vital Signs: Vital Signs Date Time Temp Pulse Resp B/P (MAP) Pulse Ox O2 Delivery O2 Flow Rate FiO2 10/20/19 09:35 99 Ventilator 10/20/19 09:00 98.6 87 20 130/60 (83) 98.6 10/20/19 06:41 40.0 Labs: Laboratory Tests Test 10/19/19 11:55 10/19/19 16:30 10/19/19 17:49 10/20/19 00:19 O2 Saturation 97 % Arterial Blood pH 7.38 Arterial Blood pCO2 at Patient Temp 38 mmHg Arterial Blood pO2 at Patient Temp 111 mmHg Arterial Blood HCO3 22 mmol/L Arterial Blood Base Excess -3 mmol/L FiO2 40 Glucose (Fingerstick) 235 mg/dL 201 mg/dL 200 mg/dL Hemoglobin 7.3 g/dL Hematocrit 21.4 % Mean Corpuscular Hemoglobin Concent 34 g/dL Test 10/20/19 06:09 10/20/19 06:10 10/20/19 08:00 Glucose (Fingerstick) 157 mg/dL White Blood Count 38.3 x10^3/uL Red Blood Count 3.06 x10^6/uL Hemoglobin 9.0 g/dL Hematocrit 26.8 % Mean Corpuscular Volume 88 fL Mean Corpuscular Hemoglobin 29 pg Mean Corpuscular Hemoglobin Concent 34 g/dL Red Cell Distribution Width 14.8 % Platelet Count 278 x10^3/uL Sodium Level 134 mmol/L Potassium Level 4.0 mmol/L Chloride Level 103 mmol/L Carbon Dioxide Level 28 mmol/L Anion Gap 3 Blood Urea Nitrogen 24 mg/dL Creatinine 0.7 mg/dL Estimated GFR (Cockcroft-Gault) 88.9 Glucose Level 178 mg/dL Calcium Level 8.9 mg/dL Phosphorus Level 4.2 mg/dL Magnesium Level 2.1 mg/dL O2 Saturation 98 % Arterial Blood pH 7.36 Arterial Blood pCO2 at Patient Temp 41 mmHg Arterial Blood pO2 at Patient Temp 127 mmHg Arterial Blood HCO3 23 mmol/L Arterial Blood Base Excess -2 mmol/L FiO2 40 ORDERED: SHAJI/MICHOACANO/PRETTY COMMENTS: PANCREATIC NECROSIS Procedure Result GRAM STAIN Final Final SQUAMOUS EPI CELL:RARE PMN (WBCs):FEW YEAST:FEW Unless otherwise specified, Testing Performed by: [address] [address] For Inquires, the Physician may contact the Microbiology department at [phone] ANAEROBIC-AEROBIC CULTURE PENDING BLOOD CULTURE Preliminary NO GROWTH AFTER 3 DAYS PE: GEN: chronically ill LUNGS: tach/vent HEART: RRR ABD: many drains, tube feed running NEURO/PSYCH: sedated A/P: Severe gallstone pancreatitis s/p expl laparotomy, SAURABH, subtotal cholecystectomy, gastrojejunostomy placement, pancreatic necrosectomy -- Supportive care. Justicifation of Admission Dx: Justifications for Admission: Justification of Admission Dx: Yes CYNDEE FALCON Oct 20, 2019 10:46
[2019-10-20] MEDS: TPN PER PHARMACY MC PRN ×2 (11:39→11:40)
--- NOTE | 2019-10-20 11:44 | NUR ---
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, 8 inches Weight: 96.0 kg Current diet: NPO LABS: Sodium: 134 Potassium: 4 Chloride: 103 Calcium: 8.9 Corrected Calcium: 11.22 Magnesium: 2.1 CO2: 28 SCr: 0.5 Glucose: 235 Albumin: 1.1 AST: 18 ALT: 12 TPN FORMULA: TPN TYPE: Central Continuous AMINO ACIDS: 80 gm DEXTROSE: 250 gm LIPIDS: 20 gm SODIUM CHLORIDE: 100 mEq SODIUM ACETATE: - mEq SODIUM PHOSPHATE: - mmol POTASSIUM CHLORIDE: 30 mEq POTASSIUM ACETATE: 30 mEq POTASSIUM PHOSPHATE: - mmol MAGNESIUM: 12 mEq CALCIUM: - mEq INSULIN: 15 units MULTIPLE VITAMIN: 10 ml TRACE ELEMENTS: 1 ml(s) TPN PLAN: increase nacl to 100 meq AND decrease magso4 to 12 meq R: continue TPN at 80 ml/hr Will monitor electrolytes, glucose, and tolerance to TPN. KRISTIAN APODACA [facility], 10/20/19 1143
--- NOTE | 2019-10-20 15:04 | PDOC ---
PROGRESS NOTES Chief Complaint Chief Complaint 48yo F w/ PMHx HTN, prediabetes who presented the emergency room complaints of abdominal pain. Patient described off and on 3 days. She states is constant, described as a squeezing sensation in a band-like distribution. + nausea, vomiting. She denies any fever or diarrhea. Patient denies any abdominal surgical procedures. She stateed is worse with movements, car ride. Pain initially was upper abdomen however now pretty much generalized. Last bowel movement was 07/03/2019. Nothing makes her pain better. Patient denies any shortness of breath. She does state the pain moves into her chest. Denies any headache or visual changes. Lipase 60303, AST 401, ALT 249, Bilirubin 1.4. CT abdomen confirms pancreatic inflammation, peripancreatic fluid and inflammatory changes around the pancreas consistent with pancreatitis. Cholelithiasis and 1.4cm uterine fibroid as well as possible left salpingitis. Admitted for further care Gallstone pancreatitis with necrosis. -CT A/P 09/23 showed multiple pseudocysts, slight larger on the right. s/p drains x , 09/24. + PSAE (MDRO-R Cefepime, Zosyn ALEXANDRA < 64) and yeast, -s/p drain 08/14. C. parapsilosis. s/p drain 08/23 + yeast & high amylase; s/p additional drain on 08/25. Drains removed. Ascites s/p paracentesis 08/02 & 08/23. C. parapsilosis JUANA. off HD. Impression and plan: Acute hypoxic Respiratory failure required mechanical ventilation Tracheostomy bilateral pleural effusions/pulm edema s/p Throacentesis on 10/03/2019 Severe Acute gallstone pancreatitis (not a surgical candidate at this time) with necrosis Acute kidney failure now requiring dialysis Gallstones (Calculus of gallbladder with acute cholecystitis without obstruction) HTN Intractable pain Intractable nausea Covid 19 negative. Acute on chronic anemia EEG: No seizure activityFever - better currently - intermittent could be from underlying pancreatitis blood cults 08/21 - neg so far ? Ileus with vomiting Abd distention - U/S and CT reviewed s/p 0.4 L of opaque, debris-containing ascites was removed 08/23 Acute pancreatitis with persistent necrosis Gallstone pancreatitis with necrosis. -CT A/P 09/23 showed multiple pseudocysts, slight larger on the right. s/p drains x 3, 09/24. + PSAE (MDRO-R Cefepime, Zosyn ALEXANDRA < 64) and yeast, -s/p drain 08/14. C. parapsilosis. s/p drain 08/23 + yeast & high amylase; s/p additional drain on 08/25. Drains removed. Ascites s/p paracentesis 08/02 & 08/23. C. parapsilosis JUANA. off HD. A large fluid collection in the pancreatic bed has slightly decreased in size, described below, the pancreas itself is difficult to visualize, which could be due to necrosis or obscuration of pancreatic parenchyma from the surrounding fluid collection.10/02 - 08/14 status post KAYLIN drain placement + C paropsilosis. s/p additional drains 08/25 Anemia - S/p PRBCs Cholelithiasis with thickening of the gallbladder wall. Leucocytosis improving JUANA, hyperkalemia, Metabolic acidosis off dialysis hypocalcemia Prediabetes HTN s/p trach ESRD on HD Hyperglycemia severe protein-caloric malnutrition Moderate to large left pleural effusion with atelectasis and collapse of most of the left lower lobe, stable Dispo - ICU, critically ill Poor prognosis History of Present Illness History of Present Illness 10/19, prongonsis poor, wean pressors as able , s/p surg BP better, labile, cont IV meds, IV nutrition s/p large surgery, pancreas removal, 10/17 fever overnight, blood cult, cont dapto and merrem ( 10/15) add micafungin Patient seen and examined ICU BED plan OR 10/17 for necrosectomy, cholecystectomy and feeding tube placement. [id number] prognosis Sputum from 09/30 - growing PSA - may be colonization I to Meropenem Continue meropenem, has MDRP PSAE September 24 from abd bleeding from Sx. site RLQ and firmness)stable oncology consulted Cholelithiasis. Mild thickened appearance of the gallbladder wall. sono 10/12 Mild right hydronephrosis.Fluid collection identified anterior to the pancreas. 10/14/2019 Patient having trouble with secretions this morning, no other complaints, discussed with surgical WINDOWS SYSTEMS ADMIN. Plans for OR on Thursday. No fever above 99.9 overnight, remains tachycardic, medications reviewed. 10/15/2019 Patient with thick secretions, no other acute events reported overnight. Patient seems to be quite anxious, I have tried to provide reassurance during my encounter regarding her upcoming surgical procedure. Patient seems to be quite anxious and seems to experience panic attacks when she first wakes up thinking that is the day of surgery. At the present time she seems to be medically optimized for planned surgery, discussed with nursing staff at bedside 10/17/2019 Patient seems to be hallucinating and having probably memories from her former life prior to this prolonged hospital stay which is 3 months plus in length. Immediate plans are for surgical intervention on Thursday which will consist of a Whipple procedure. At the present time the patient remains critically stable her prognosis is quite guarded at best. fever last night hallucinations continues to have chest tube in multiple abdominal drains as well. All these are probable source of infection plan OR 10/17 for necrosectomy, cholecystectomy and feeding tube placement. 37 min cc time Date: Aug 15, 2019 Pre-Op Diagnosis: Necrotizing pancreatitis Post-Op Diagnosis: same Procedure Performed: laparoscopic exploration Surgeon: Renzo Servin Asst: Dr. Arturo Harris Anesthesia Type: GETA plus local Blood Loss: 50 Specimans Obtained: cultures, debris Findings: 1000 cc ascites suctioned off, cultures sent, diffuse debris, obliteration of surgical planes preventing any meaningful exploration 09/19/2019 Patient seen and examined in the ICU She appears extremely ill She is tachypneic at 35 respirations per minute and tachycardic at 132 bpm She is extremely encephalopathic and shaky She appears clammy Chart reviewed Discussed with RN Prognosis extremely guarded at best 09/18/2019 Patient still in ICU Resting with no apparent distress Chart reviewed 09/17/2019 Patient seen and examined in the ICU She is wiping her face with a cough Discussed with RN Chart reviewed We hope to get her out of the ICU later today if possible 09/16/2019 Patient seen and examined in the ICU once again She is back on NG suction On IV Zosyn Has IV TPN Sedated with Precedex but anxious still Appears somewhat clammy and pale Chart reviewed Discussed with RN She remains critically ill BRIEF OPERATIVE NOTE Pre-Op Diagnosis Pancreatitis with pseudocysts, suspected infection Post-Op Diagnosis same Procedure Performed CT abdominal Drains x 3 Surgeon Tesfaye Anesthesia Type: Conscious Sedation Findings 3 abdominal drains, 14F, with turbid pancreatic fluid and necrotic debris in each. Complications No immediate 08/26: Patient today somewhat restless and having bilious secretions from ET tube, imaging studies ordered, discussed with real estate listing consultant. Pretty poor prognosis, hopefully is not a fistula, poor surgical candidate. 08/27: Imaging with no acute events, she seems more stable today compared to yesterday. Encouraged as much activity as possible patient at high risk for severe depression. Vitals Vitals Vital Signs Date Time Temp Pulse Resp B/P (MAP) Pulse Ox O2 Delivery O2 Flow Rate FiO2 10/20/19 14:00 98 16 88/76 (80) 99 Ventilator 10/20/19 12:00 97.7 97.7 10/20/19 06:41 40.0 Physical Exam Physical Exam GENERAL: Sedated, ill appearing HEENT: Oral cavity dry. + NGT NECK: Tracheostomy LUNGS: Diminished aeration bases, CT on left HEART: S1, S2, regular w/ PVCs ABDOMEN: Mild distention, bowel sounds hypoactive, soft, yoselin x2, 3 KAYLIN drains, G-J tube and + wound vac : Lind EXTREMITIES: Generalized edema, no cyanosis. SCDs & Podus boots bilaterally SKIN: warm touch. No signs of rash. LUE-PICC, left art-line without signs of complications General: Other (Sedated) Heart: Regular rate (SR/ST), Other (distant heart sounds) Lungs: Crackles Abdomen: Other (Abdomen is soft wounds dressed drains in place pancreatic drains draining dark fluid tube feeds through her J-tube at 10 cc an hour) Extremities: Other (Diffuse edema) Skin: No rashes, No significant lesion Labs LABS Laboratory Tests Test 10/19/19 16:30 10/19/19 17:49 10/20/19 00:19 10/20/19 06:09 Hemoglobin 7.3 g/dL (12.0-15.5) Hematocrit 21.4 % (36.0-47.0) Mean Corpuscular Hemoglobin Concent 34 g/dL (31-37) Glucose (Fingerstick) 201 mg/dL (70-99) 200 mg/dL (70-99) 157 mg/dL (70-99) Test 10/20/19 06:10 10/20/19 08:00 10/20/19 12:43 White Blood Count 38.3 x10^3/uL (4.0-11.0) Red Blood Count 3.06 x10^6/uL (3.50-5.40) Hemoglobin 9.0 g/dL (12.0-15.5) Hematocrit 26.8 % (36.0-47.0) Mean Corpuscular Volume 88 fL (79-100) Mean Corpuscular Hemoglobin 29 pg (25-35) Mean Corpuscular Hemoglobin Concent 34 g/dL (31-37) Red Cell Distribution Width 14.8 % (11.5-14.5) Platelet Count 278 x10^3/uL (140-400) Sodium Level 134 mmol/L (136-145) Potassium Level 4.0 mmol/L (3.5-5.1) Chloride Level 103 mmol/L (98-107) Carbon Dioxide Level 28 mmol/L (21-32) Anion Gap 3 (6-14) Blood Urea Nitrogen 24 mg/dL (7-20) Creatinine 0.7 mg/dL (0.6-1.0) Estimated GFR (Cockcroft-Gault) 88.9 Glucose Level 178 mg/dL (70-99) Calcium Level 8.9 mg/dL (8.5-10.1) Phosphorus Level 4.2 mg/dL (2.6-4.7) Magnesium Level 2.1 mg/dL (1.8-2.4) O2 Saturation 98 % (92-99) Arterial Blood pH 7.36 (7.35-7.45) Arterial Blood pCO2 at Patient Temp 41 mmHg (35-46) Arterial Blood pO2 at Patient Temp 127 mmHg (75-108) Arterial Blood HCO3 23 mmol/L (21-28) Arterial Blood Base Excess -2 mmol/L (-3-3) FiO2 40 Glucose (Fingerstick) 184 mg/dL (70-99) Assessment and Plan Assessmemt and Plan Problems Medical Problems: (1) Acute pancreatitis Status: Acute (2) Cholelithiasis Status: Acute Comment Review of Relevant I have reviewed the following items kolby (where applicable) has been applied. Labs Laboratory Tests Test 10/18/19 15:30 10/18/19 16:10 10/18/19 21:30 10/19/19 06:00 White Blood Count 49.3 x10^3/uL (4.0-11.0) 21.5 x10^3/uL (4.0-11.0) 18.9 x10^3/uL (4.0-11.0) Red Blood Count 2.36 x10^6/uL (3.50-5.40) 2.77 x10^6/uL (3.50-5.40) 2.55 x10^6/uL (3.50-5.40) Hemoglobin 6.7 g/dL (12.0-15.5) 8.2 g/dL (12.0-15.5) 7.5 g/dL (12.0-15.5) Hematocrit 20.9 % (36.0-47.0) 23.1 % (36.0-47.0) 21.6 % (36.0-47.0) Mean Corpuscular Volume 89 fL (79-100) 84 fL (79-100) 85 fL (79-100) Mean Corpuscular Hemoglobin 28 pg (25-35) 30 pg (25-35) 29 pg (25-35) Mean Corpuscular Hemoglobin Concent 32 g/dL (31-37) 36 g/dL (31-37) 35 g/dL (31-37) Red Cell Distribution Width 16.7 % (11.5-14.5) 14.8 % (11.5-14.5) 14.8 % (11.5-14.5) Platelet Count 335 x10^3/uL (140-400) 211 x10^3/uL (140-400) 253 x10^3/uL (140-400) Sodium Level 138 mmol/L (136-145) 138 mmol/L (136-145) Potassium Level 4.3 mmol/L (3.5-5.1) 3.9 mmol/L (3.5-5.1) Chloride Level 107 mmol/L (98-107) 104 mmol/L (98-107) Carbon Dioxide Level 15 mmol/L (21-32) 26 mmol/L (21-32) Anion Gap 16 (6-14) 8 (6-14) Blood Urea Nitrogen 11 mg/dL (7-20) 19 mg/dL (7-20) Creatinine 0.7 mg/dL (0.6-1.0) 0.8 mg/dL (0.6-1.0) Estimated GFR (Cockcroft-Gault) 88.9 76.2 Glucose Level 169 mg/dL (70-99) 264 mg/dL (70-99) Calcium Level 7.5 mg/dL (8.5-10.1) 9.2 mg/dL (8.5-10.1) Magnesium Level 1.4 mg/dL (1.8-2.4) 2.1 mg/dL (1.8-2.4) O2 Saturation 99 % (92-99) Arterial Blood pH 7.25 (7.35-7.45) Arterial Blood pCO2 at Patient Temp 32 mmHg (35-46) Arterial Blood pO2 at Patient Temp 374 mmHg (75-108) Arterial Blood HCO3 13 mmol/L (21-28) Arterial Blood Base Excess -13 mmol/L (-3-3) FiO2 80%+5 Neutrophils (%) (Auto) 85 % (31-73) Lymphocytes (%) (Auto) 8 % (24-48) Monocytes (%) (Auto) 6 % (0-9) Eosinophils (%) (Auto) 0 % (0-3) Basophils (%) (Auto) 0 % (0-3) Neutrophils # (Auto) 16.1 x10^3/uL (1.8-7.7) Lymphocytes # (Auto) 1.5 x10^3/uL (1.0-4.8) Monocytes # (Auto) 1.2 x10^3/uL (0.0-1.1) Eosinophils # (Auto) 0.0 x10^3/uL (0.0-0.7) Basophils # (Auto) 0.1 x10^3/uL (0.0-0.2) Phosphorus Level 3.5 mg/dL (2.6-4.7) Test 10/19/19 06:06 10/19/19 08:30 10/19/19 11:55 10/19/19 16:30 Glucose (Fingerstick) 249 mg/dL (70-99) 235 mg/dL (70-99) O2 Saturation 98 % (92-99) 97 % (92-99) Arterial Blood pH 7.60 (7.35-7.45) 7.38 (7.35-7.45) Arterial Blood pCO2 at Patient Temp 22 mmHg (35-46) 38 mmHg (35-46) Arterial Blood pO2 at Patient Temp 120 mmHg (75-108) 111 mmHg (75-108) Arterial Blood HCO3 21 mmol/L (21-28) 22 mmol/L (21-28) Arterial Blood Base Excess 0 mmol/L (-3-3) -3 mmol/L (-3-3) FiO2 40 40 Hemoglobin 7.3 g/dL (12.0-15.5) Hematocrit 21.4 % (36.0-47.0) Mean Corpuscular Hemoglobin Concent 34 g/dL (31-37) Test 10/19/19 17:49 10/20/19 00:19 10/20/19 06:09 10/20/19 06:10 Glucose (Fingerstick) 201 mg/dL (70-99) 200 mg/dL (70-99) 157 mg/dL (70-99) White Blood Count 38.3 x10^3/uL (4.0-11.0) Red Blood Count 3.06 x10^6/uL (3.50-5.40) Hemoglobin 9.0 g/dL (12.0-15.5) Hematocrit 26.8 % (36.0-47.0) Mean Corpuscular Volume 88 fL (79-100) Mean Corpuscular Hemoglobin 29 pg (25-35) Mean Corpuscular Hemoglobin Concent 34 g/dL (31-37) Red Cell Distribution Width 14.8 % (11.5-14.5) Platelet Count 278 x10^3/uL (140-400) Sodium Level 134 mmol/L (136-145) Potassium Level 4.0 mmol/L (3.5-5.1) Chloride Level 103 mmol/L (98-107) Carbon Dioxide Level 28 mmol/L (21-32) Anion Gap 3 (6-14) Blood Urea Nitrogen 24 mg/dL (7-20) Creatinine 0.7 mg/dL (0.6-1.0) Estimated GFR (Cockcroft-Gault) 88.9 Glucose Level 178 mg/dL (70-99) Calcium Level 8.9 mg/dL (8.5-10.1) Phosphorus Level 4.2 mg/dL (2.6-4.7) Magnesium Level 2.1 mg/dL (1.8-2.4) Test 10/20/19 08:00 10/20/19 12:43 O2 Saturation 98 % (92-99) Arterial Blood pH 7.36 (7.35-7.45) Arterial Blood pCO2 at Patient Temp 41 mmHg (35-46) Arterial Blood pO2 at Patient Temp 127 mmHg (75-108) Arterial Blood HCO3 23 mmol/L (21-28) Arterial Blood Base Excess -2 mmol/L (-3-3) FiO2 40 Glucose (Fingerstick) 184 mg/dL (70-99) Laboratory Tests Test 10/19/19 16:30 10/19/19 17:49 10/20/19 00:19 10/20/19 06:09 Hemoglobin 7.3 g/dL (12.0-15.5) Hematocrit 21.4 % (36.0-47.0) Mean Corpuscular Hemoglobin Concent 34 g/dL (31-37) Glucose (Fingerstick) 201 mg/dL (70-99) 200 mg/dL (70-99) 157 mg/dL (70-99) Test 10/20/19 06:10 10/20/19 08:00 10/20/19 12:43 White Blood Count 38.3 x10^3/uL (4.0-11.0) Red Blood Count 3.06 x10^6/uL (3.50-5.40) Hemoglobin 9.0 g/dL (12.0-15.5) Hematocrit 26.8 % (36.0-47.0) Mean Corpuscular Volume 88 fL (79-100) Mean Corpuscular Hemoglobin 29 pg (25-35) Mean Corpuscular Hemoglobin Concent 34 g/dL (31-37) Red Cell Distribution Width 14.8 % (11.5-14.5) Platelet Count 278 x10^3/uL (140-400) Sodium Level 134 mmol/L (136-145) Potassium Level 4.0 mmol/L (3.5-5.1) Chloride Level 103 mmol/L (98-107) Carbon Dioxide Level 28 mmol/L (21-32) Anion Gap 3 (6-14) Blood Urea Nitrogen 24 mg/dL (7-20) Creatinine 0.7 mg/dL (0.6-1.0) Estimated GFR (Cockcroft-Gault) 88.9 Glucose Level 178 mg/dL (70-99) Calcium Level 8.9 mg/dL (8.5-10.1) Phosphorus Level 4.2 mg/dL (2.6-4.7) Magnesium Level 2.1 mg/dL (1.8-2.4) O2 Saturation 98 % (92-99) Arterial Blood pH 7.36 (7.35-7.45) Arterial Blood pCO2 at Patient Temp 41 mmHg (35-46) Arterial Blood pO2 at Patient Temp 127 mmHg (75-108) Arterial Blood HCO3 23 mmol/L (21-28) Arterial Blood Base Excess -2 mmol/L (-3-3) FiO2 40 Glucose (Fingerstick) 184 mg/dL (70-99) Microbiology 10/18/19 Gram Stain - Final, Resulted 10/18/19 Aerobic and Anaerobic Culture, Resulted Pending 10/16/19 Blood Culture - Preliminary, Resulted NO GROWTH AFTER 3 DAYS 10/03/19 Gram Stain - Final, Complete 10/03/19 Aerobic and Anaerobic Culture - Final, Complete 10/01/19 Gram Stain Evaluation - Final, Complete 10/01/19 Respiratory Culture - Final, Complete 10/01/19 Antimicrobic Susceptibility - Final, Complete 09/25/19 Urine Culture - Final, Complete 09/17/19 Gram Stain - Final, Complete 09/17/19 Aerobic Culture - Final, Complete Medications Current Medications Sodium Chloride 1,000 ml @ 1,000 mls/hr Q1H IV Last administered on 07/04/19at 03:00; Start 07/04/19 at 03:00; Stop 07/04/19 at 03:59; Status DC Ondansetron HCl (Zofran) 4 mg 1X ONCE IVP Last administered on 07/04/19at 03:27; Start 07/04/19 at 03:00; Stop 07/04/19 at 03:01; Status DC Morphine Sulfate (Morphine Sulfate) 4 mg 1X ONCE IV ; Start 07/04/19 at 03:00; Stop 07/04/19 at 03:01; Status Cancel Ketorolac Tromethamine (Toradol 30mg Vial) 30 mg 1X ONCE IV Last administered on 07/04/19at 02:54; Start 07/04/19 at 03:00; Stop 07/04/19 at 03:01; Status DC Fentanyl Citrate (Fentanyl 2ml Vial) 25 mcg 1X ONCE IVP Last administered on 07/04/19at 03:23; Start 07/04/19 at 03:30; Stop 07/04/19 at 03:31; Status DC Fentanyl Citrate (Fentanyl 2ml Vial) 100 mcg STK-MED ONCE .ROUTE ; Start 07/04/19 at 03:18; Stop 07/04/19 at 03:18; Status DC Iohexol (Omnipaque 350 Mg/ml) 90 ml 1X ONCE IV Last administered on 07/04/19at 03:25; Start 07/04/19 at 03:30; Stop 07/04/19 at 03:31; Status DC Info (CONTRAST GIVEN -- Rx MONITORING) 1 each PRN DAILY PRN MC SEE COMMENTS; Start 07/04/19 at 03:30; Stop 07/06/19 at 03:29; Status DC Hydromorphone HCl (Dilaudid) 0.5 mg 1X ONCE IV Last administered on 07/04/19at 03:55; Start 07/04/19 at 04:30; Stop 07/04/19 at 04:32; Status DC Ondansetron HCl (Zofran) 4 mg PRN Q8HRS PRN IV NAUSEA/VOMITING 1ST CHOICE; Start 07/04/19 at 05:00; Stop 07/04/19 at 09:27; Status DC Morphine Sulfate (Morphine Sulfate) 2 mg PRN Q2HR PRN IV SEVERE PAIN 7-10 Last administered on 07/05/19at 12:26; Start 07/04/19 at 05:00; Stop 07/05/19 at 14:15; Status DC Sodium Chloride 1,000 ml @ 125 mls/hr Q8H IV Last administered on 07/04/19at 20:56; Start 07/04/19 at 05:00; Stop 07/05/19 at 04:59; Status DC Hydromorphone HCl (Dilaudid) 0.5 mg PRN Q3HRS PRN IV SEVERE PAIN 7-10 Last administered on 07/05/19at 10:06; Start 07/04/19 at 05:00; Stop 07/05/19 at 12:01; Status DC Piperacillin Sod/ Tazobactam Sod 4.5 gm/Sodium Chloride 100 ml @ 200 mls/hr 1X ONCE IV Last administered on 07/04/19at 05:44; Start 07/04/19 at 06:00; Stop 07/04/19 at 06:29; Status DC Ondansetron HCl (Zofran) 4 mg PRN Q4HRS PRN IV NAUSEA/VOMITING 1ST CHOICE Last administered on 10/15/19at 13:37; Start 07/04/19 at 09:30 Insulin Human Lispro (HumaLOG) 0-9 UNITS Q6HRS SQ Last administered on 10/20/19at 12:44; Start 07/04/19 at 09:30 Dextrose (Dextrose 50%-Water Syringe) 12.5 gm PRN Q15MIN PRN IV SEE COMMENTS; Start 07/04/19 at 09:30 Pantoprazole Sodium (PROTONIX VIAL for IV PUSH) 40 mg DAILYAC IVP Last administered on 10/20/19at 08:51; Start 07/04/19 at 11:30 Prochlorperazine Edisylate (Compazine) 10 mg PRN Q6HRS PRN IV NAUSEA/VOMITING, 2nd CHOICE Last administered on 10/15/19at 10:53; Start 07/04/19 at 17:45 Atenolol (Tenormin) 100 mg DAILY PO ; Start 07/05/19 at 09:00; Stop 07/04/19 at 20:08; Status DC Metoprolol Tartrate (Lopressor Vial) 2.5 mg Q6HRS IVP Last administered on 07/05/19at 05:51; Start 07/04/19 at 20:15; Stop 07/05/19 at 10:02; Status DC Metoprolol Tartrate (Lopressor Vial) 5 mg Q6HRS IVP Last administered on 07/14/19at 00:12; Start 07/05/19 at 10:15; Stop 07/16/19 at 08:48; Status DC Hydromorphone HCl (Dilaudid) 1 mg PRN Q3HRS PRN IV SEVERE PAIN 7-10 Last administered on 07/11/19at 05:13; Start 07/05/19 at 12:00; Stop 07/19/19 at 00:25; Status DC Lidocaine HCl (Buffered Lidocaine 1%) 3 ml STK-MED ONCE .ROUTE ; Start 07/05/19 at 12:55; Stop 07/05/19 at 12:56; Status DC Albumin Human 500 ml @ 125 mls/hr 1X ONCE IV Last administered on 07/05/19at 14:33; Start 07/05/19 at 14:30; Stop 07/05/19 at 18:32; Status DC Norepinephrine Bitartrate 8 mg/ Dextrose 258 ml @ 17.299 mls/ hr CONT PRN IV PER PROTOCOL Last administered on 08/02/19at 12:48; Start 07/05/19 at 15:30; Stop 08/05/19 at 09:19; Status DC Sodium Chloride 1,000 ml @ 125 mls/hr Q8H IV Last administered on 07/05/19at 21:04; Start 07/05/19 at 16:00; Stop 07/06/19 at 02:42; Status DC Albumin Human 500 ml @ 125 mls/hr PRN BID PRN IV After every 2L NSS & BP < 90mm Last administered on 10/18/19at 16:06; Start 07/05/19 at 16:00 Iohexol (Omnipaque 300 Mg/ml) 60 ml 1X ONCE IV Last administered on 07/05/19at 17:20; Start 07/05/19 at 17:00; Stop 07/05/19 at 17:01; Status DC Info (CONTRAST GIVEN -- Rx MONITORING) 1 each PRN DAILY PRN MC SEE COMMENTS; Start 07/05/19 at 17:00; Stop 07/07/19 at 16:59; Status DC Meropenem 1 gm/ Sodium Chloride 100 ml @ 200 mls/hr Q8HRS IV Last administered on 07/06/19at 05:45; Start 07/05/19 at 20:00; Stop 07/06/19 at 08:48; Status DC Furosemide (Lasix) 40 mg 1X ONCE IVP Last administered on 07/05/19at 22:12; Start 07/05/19 at 22:30; Stop 07/05/19 at 22:31; Status DC Calcium Chloride 1000 mg/Sodium Chloride 110 ml @ 220 mls/hr 1X ONCE IV Last administered on 07/05/19at 22:11; Start 07/05/19 at 22:30; Stop 07/05/19 at 22:59; Status DC Albuterol Sulfate (Ventolin Neb Soln) 2.5 mg 1X ONCE NEB Last administered on 07/06/19at 00:56; Start 07/05/19 at 22:30; Stop 07/05/19 at 22:31; Status DC Insulin Human Regular (HumuLIN R VIAL) 5 unit 1X ONCE IV Last administered on 07/05/19at 22:14; Start 07/05/19 at 22:30; Stop 07/05/19 at 22:31; Status DC Magnesium Sulfate 50 ml @ 25 mls/hr 1X ONCE IV Last administered on 07/06/19at 02:57; Start 07/06/19 at 03:00; Stop 07/06/19 at 04:59; Status DC Calcium Gluconate 1000 mg/Sodium Chloride 110 ml @ 220 mls/hr 1X ONCE IV Last administered on 07/06/19at 02:46; Start 07/06/19 at 03:00; Stop 07/06/19 at 03:29; Status DC Sodium Chloride 1,000 ml @ 200 mls/hr Q5H IV Last administered on 07/06/19at 02:46; Start 07/06/19 at 03:00; Stop 07/06/19 at 10:21; Status DC Calcium Gluconate 1000 mg/Sodium Chloride 110 ml @ 220 mls/hr 1X ONCE IV Last administered on 07/06/19at 03:21; Start 07/06/19 at 03:30; Stop 07/06/19 at 03:59; Status DC Sodium Bicarbonate 50 meq/Sodium Chloride 1,050 ml @ 75 mls/hr Q14H IV Last administered on 07/10/19at 21:10; Start 07/06/19 at 07:30; Stop 07/11/19 at 10:28; Status DC Calcium Gluconate 2000 mg/Sodium Chloride 120 ml @ 220 mls/hr 1X ONCE IV Last administered on 07/06/19at 09:05; Start 07/06/19 at 07:30; Stop 07/06/19 at 08:02 ; Status DC Lidocaine HCl (Xylocaine-Mpf 1% 2ml Vial) 2 ml STK-MED ONCE .ROUTE ; Start 07/06/19 at 08:47; Stop 07/06/19 at 08:47; Status DC Meropenem 500 mg/ Sodium Chloride 50 ml @ 100 mls/hr Q12HR IV Last administered on 07/11/19at 21:01; Start 07/06/19 at 18:00; Stop 07/12/19 at 07:58; Status DC Lidocaine HCl (Buffered Lidocaine 1%) 3 ml STK-MED ONCE .ROUTE ; Start 07/06/19 at 09:46; Stop 07/06/19 at 09:46; Status DC Lidocaine HCl (Buffered Lidocaine 1%) 6 ml 1X ONCE INJ Last administered on 07/06/19at 10:26; Start 07/06/19 at 10:15; Stop 07/06/19 at 10:16; Status DC Info (Tpn Per Pharmacy) 1 each PRN DAILY PRN MC SEE COMMENTS Last administered on 10/20/19at 11:40; Start 07/06/19 at 12:00 Sodium Chloride 1,000 ml @ 1,000 mls/hr Q1H PRN IV hypotension; Start 07/06/19 at 12:07; Stop 07/06/19 at 18:06; Status DC Diphenhydramine HCl (Benadryl) 25 mg 1X PRN PRN IV ITCHING; Start 07/06/19 at 12:15; Stop 07/07/19 at 12:14; Status DC Diphenhydramine HCl (Benadryl) 25 mg 1X PRN PRN IV ITCHING; Start 07/06/19 at 12:15; Stop 07/07/19 at 12:14; Status DC Sodium Chloride 1,000 ml @ 400 mls/hr Q2H30M PRN IV PATENCY; Start 07/06/19 at 12:07; Stop 07/07/19 at 00:06; Status DC Info (PHARMACY MONITORING -- do not chart) 1 each PRN DAILY PRN MC SEE COMMENTS; Start 07/06/19 at 12:15; Stop 07/08/19 at 08:13; Status DC Sodium Chloride 90 meq/Calcium Gluconate 10 meq/ Multivitamins 10 ml/Chromium/ Copper/Manganese/ Seleni/Zn 1 ml/ Total Parenteral Nutrition/Amino Acids/Dextrose/ Fat Emulsion Intravenous 55.005 ml @ 2.292 mls/hr TPN CONT IV ; Start 07/06/19 at 22:00; Stop 07/06/19 at 12:33; Status DC Info (Tpn Per Pharmacy) 1 each PRN DAILY PRN MC SEE COMMENTS; Start 07/06/19 at 12:30; Status UNV Sodium Chloride 90 meq/Calcium Gluconate 10 meq/ Multivitamins 10 ml/Chromium/ Copper/Manganese/ Seleni/Zn 0.5 ml/ Total Parenteral Nutrition/Amino Acids/Dextrose/ Fat Emulsion Intravenous 1,512 ml @ 63 mls/hr TPN CONT IV Last administered on 07/06/19at 22:06; Start 07/06/19 at 22:00; Stop 07/07/19 at 21:59; Status DC Calcium Carbonate/ Glycine (Tums) 500 mg PRN AFTMEALHC PRN PO INDIGESTION; Start 07/06/19 at 17:45; Stop 08/31/19 at 10:25; Status DC Calcium Gluconate (Calcium Gluconate) 2,000 mg 1X ONCE IVP Last administered on 07/07/19at 02:19; Start 07/07/19 at 02:15; Stop 07/07/19 at 02:16; Status DC Calcium Chloride 3000 mg/Sodium Chloride 1,030 ml @ 50 mls/hr [id number] IV Last administered on 07/09/19at 02:17; Start 07/07/19 at 08:00; Stop 07/09/19 at 15:23; Status DC Lorazepam (Ativan Inj) 1 mg PRN Q4HRS PRN IVP ANXIETY / AGITATION, 2nd choic Last administered on 08/05/19at 03:51; Start 07/07/19 at 09:00; Stop 08/05/19 at 09:19; Status DC Sodium Chloride 1,000 ml @ 1,000 mls/hr Q1H PRN IV hypotension; Start 07/07/19 at 08:56; Stop 07/07/19 at 14:55; Status DC Albumin Human 200 ml @ 200 mls/hr 1X PRN PRN IV Hypotension; Start 07/07/19 at 09:00; Stop 07/07/19 at 14:59; Status DC Diphenhydramine HCl (Benadryl) 25 mg 1X PRN PRN IV ITCHING; Start 07/07/19 at 09:00; Stop 07/08/19 at 08:59; Status DC Diphenhydramine HCl (Benadryl) 25 mg 1X PRN PRN IV ITCHING; Start 07/07/19 at 09:00; Stop 07/08/19 at 08:59; Status DC Sodium Chloride 1,000 ml @ 400 mls/hr Q2H30M PRN IV PATENCY; Start 07/07/19 at 08:56; Stop 07/07/19 at 20:55; Status DC Info (PHARMACY MONITORING -- do not chart) 1 each PRN DAILY PRN MC SEE COMMENTS; Start 07/07/19 at 09:00; Status UNV Info (PHARMACY MONITORING -- do not chart) 1 each PRN DAILY PRN MC SEE COMMENTS; Start 07/07/19 at 09:00; Stop 07/08/19 at 08:13; Status DC Digoxin (Lanoxin) 500 mcg 1X ONCE IV Last administered on 07/07/19at 10:04; Start 07/07/19 at 10:00; Stop 07/07/19 at 10:01; Status DC Digoxin (Lanoxin) 125 mcg 1X ONCE IV Last administered on 07/07/19at 17:10; Start 07/07/19 at 18:00; Stop 07/07/19 at 18:01; Status DC Magnesium Sulfate 100 ml @ 25 mls/hr 1X ONCE IV Last administered on 07/07/19at 12:48; Start 07/07/19 at 13:00; Stop 07/07/19 at 16:59; Status DC Sodium Chloride 90 meq/Magnesium Sulfate 10 meq/ Calcium Gluconate 20 meq/ Multivitamins 10 ml/Chromium/ Copper/Manganese/ Seleni/Zn 0.5 ml/ Total Parenteral Nutrition/Amino Acids/Dextrose/ Fat Emulsion Intravenous 1,512 ml @ 63 mls/hr TPN CONT IV Last administered on 07/07/19at 22:25; Start 07/07/19 at 22:00; Stop 07/08/19 at 21:59; Status DC Sodium Chloride 1,000 ml @ 1,000 mls/hr Q1H PRN IV hypotension; Start 07/08/19 at 08:05; Stop 07/08/19 at 14:04; Status DC Albumin Human 200 ml @ 200 mls/hr 1X ONCE IV Last administered on 07/08/19at 08:57; Start 07/08/19 at 08:15; Stop 07/08/19 at 09:14; Status DC Diphenhydramine HCl (Benadryl) 25 mg 1X PRN PRN IV ITCHING; Start 07/08/19 at 08:15; Stop 07/09/19 at 08:14; Status DC Diphenhydramine HCl (Benadryl) 25 mg 1X PRN PRN IV ITCHING; Start 07/08/19 at 08:15; Stop 07/09/19 at 08:14; Status DC Sodium Chloride 1,000 ml @ 400 mls/hr Q2H30M PRN IV PATENCY; Start 07/08/19 at 08:05; Stop 07/08/19 at 20:04; Status DC Info (PHARMACY MONITORING -- do not chart) 1 each PRN DAILY PRN MC SEE COMMENTS; Start 07/08/19 at 08:15; Stop 07/12/19 at 07:57; Status DC Sodium Chloride 90 meq/Potassium Chloride 15 meq/ Potassium Phosphate 10 mmol/ Magnesium Sulfate 10 meq/Calcium Gluconate 20 meq/ Multivitamins 10 ml/Chromium/ Copper/Manganese/ Seleni/Zn 0.5 ml/ Total Parenteral Nutrition/Amino Acids/Dextrose/ Fat Emulsion Intravenous 1,512 ml @ 63 mls/hr TPN CONT IV Last administered on 07/08/19at 21:01; Start 07/08/19 at 22:00; Stop 07/09/19 at 21:59; Status DC Potassium Chloride/Water 100 ml @ 100 mls/hr 1X ONCE IV Last administered on 07/08/19at 14:09; Start 07/08/19 at 14:00; Stop 07/08/19 at 14:59; Status DC Benzocaine (Hurricaine One) 1 spray 1X ONCE MM Last administered on 07/08/19at 16:38; Start 07/08/19 at 14:30; Stop 07/08/19 at 14:31; Status DC Lidocaine HCl (Glydo (Lidocaine) Jelly) 1 ramu 1X ONCE MM Last administered on 07/08/19at 16:38; Start 07/08/19 at 14:30; Stop 07/08/19 at 14:31; Status DC Linezolid/Dextrose 300 ml @ 300 mls/hr Q12HR IV Last administered on 07/14/19at 21:04; Start 07/08/19 at 20:00; Stop 07/15/19 at 07:50; Status DC Acetaminophen (Tylenol) 650 mg PRN Q6HRS PRN PO MILD PAIN / TEMP; Start 07/09/19 at 03:30; Stop 07/09/19 at 03:36; Status DC Acetaminophen (Tylenol) 650 mg PRN Q6HRS PRN PEG MILD PAIN / TEMP Last administered on 08/04/19at 19:56; Start 07/09/19 at 03:36; Stop 08/31/19 at 10:25; Status DC Sodium Chloride 1,000 ml @ 1,000 mls/hr Q1H PRN IV hypotension; Start 07/09/19 at 07:50; Stop 07/09/19 at 13:49; Status DC Albumin Human 200 ml @ 200 mls/hr 1X PRN PRN IV Hypotension; Start 07/09/19 at 08:00; Stop 07/09/19 at 13:59; Status DC Sodium Chloride (Normal Saline Flush) 10 ml 1X PRN PRN IV AP catheter pack; Start 07/09/19 at 08:00; Stop 07/10/19 at 07:59; Status DC Sodium Chloride (Normal Saline Flush) 10 ml 1X PRN PRN IV COMMUNITY MANAGER catheter pack; Start 07/09/19 at 08:00; Stop 07/10/19 at 07:59; Status DC Sodium Chloride 1,000 ml @ 400 mls/hr Q2H30M PRN IV PATENCY; Start 07/09/19 at 07:50; Stop 07/09/19 at 19:49; Status DC Info (PHARMACY MONITORING -- do not chart) 1 each PRN DAILY PRN MC SEE COMMENTS; Start 07/09/19 at 08:00; Status UNV Info (PHARMACY MONITORING -- do not chart) 1 each PRN DAILY PRN MC SEE COMMENTS; Start 07/09/19 at 08:00; Stop 07/11/19 at 08:25; Status DC Sodium Chloride 90 meq/Potassium Chloride 15 meq/ Potassium Phosphate 10 mmol/ Magnesium Sulfate 10 meq/Calcium Gluconate 20 meq/ Multivitamins 10 ml/Chromium/ Copper/Manganese/ Seleni/Zn 0.5 ml/ Total Parenteral Nutrition/Amino Acids/Dextrose/ Fat Emulsion Intravenous 1,512 ml @ 63 mls/hr TPN CONT IV Last administered on 07/09/19at 20:57; Start 07/09/19 at 22:00; Stop 07/10/19 at 21:59; Status DC Sodium Chloride 90 meq/Potassium Chloride 15 meq/ Potassium Phosphate 15 mmol/ Magnesium Sulfate 10 meq/Calcium Gluconate 20 meq/ Multivitamins 10 ml/Chromium/ Copper/Manganese/ Seleni/Zn 0.5 ml/ Total Parenteral Nutrition/Amino Acids/Dextrose/ Fat Emulsion Intravenous 1,512 ml @ 63 mls/hr TPN CONT IV ; Start 07/10/19 at 22:00; Stop 07/10/19 at 14:16; Status DC Sodium Chloride 90 meq/Potassium Chloride 15 meq/ Potassium Phosphate 15 mmol/ Magnesium Sulfate 10 meq/Calcium Gluconate 20 meq/ Multivitamins 10 ml/Chromium/ Copper/Manganese/ Seleni/Zn 0.5 ml/ Total Parenteral Nutrition/Amino Acids/Dextrose/ Fat Emulsion Intravenous 1,200 ml @ 50 mls/hr TPN CONT IV ; Start 07/10/19 at 22:00; Stop 07/10/19 at 14:17; Status DC Sodium Chloride 90 meq/Potassium Chloride 15 meq/ Potassium Phosphate 10 mmol/ Magnesium Sulfate 10 meq/Calcium Gluconate 20 meq/ Multivitamins 10 ml/Chromium/ Copper/Manganese/ Seleni/Zn 0.5 ml/ Total Parenteral Nutrition/Amino Acids/Dextrose/ Fat Emulsion Intravenous 1,200 ml @ 50 mls/hr TPN CONT IV Last administered on 07/10/19at 23:29; Start 07/10/19 at 22:00; Stop 07/11/19 at 21:59; Status DC Sodium Chloride 1,000 ml @ 1,000 mls/hr Q1H PRN IV hypotension; Start 07/11/19 at 07:28; Stop 07/11/19 at 13:27; Status DC Albumin Human 200 ml @ 200 mls/hr 1X ONCE IV Last administered on 07/11/19at 08:51; Start 07/11/19 at 07:30; Stop 07/11/19 at 08:29; Status DC Diphenhydramine HCl (Benadryl) 25 mg 1X PRN PRN IV ITCHING; Start 07/11/19 at 07:30; Stop 07/12/19 at 07:29; Status DC Diphenhydramine HCl (Benadryl) 25 mg 1X PRN PRN IV ITCHING; Start 07/11/19 at 07:30; Stop 07/12/19 at 07:29; Status DC Sodium Chloride 1,000 ml @ 400 mls/hr Q2H30M PRN IV PATENCY; Start 07/11/19 at 07:28; Stop 07/11/19 at 19:27; Status DC Info (PHARMACY MONITORING -- do not chart) 1 each PRN DAILY PRN MC SEE COMMENTS; Start 07/11/19 at 07:30; Stop 07/22/19 at 13:01; Status DC Metronidazole 100 ml @ 100 mls/hr Q6HRS IV Last administered on 07/27/19at 06:26; Start 07/11/19 at 08:30; Stop 07/27/19 at 09:58; Status DC Micafungin Sodium 100 mg/Dextrose 100 ml @ 100 mls/hr Q24H IV Last adm inistered on 08/18/19at 08:18; Start 07/11/19 at 09:00; Stop 08/18/19 at 20:58; Status DC Propofol 0 ml @ As Directed STK-MED ONCE IV ; Start 07/11/19 at 07:53; Stop 07/11/19 at 07:53; Status DC Etomidate (Amidate) 20 mg STK-MED ONCE IV ; Start 07/11/19 at 07:53; Stop 07/11/19 at 07:54; Status DC Midazolam HCl (Versed) 5 mg STK-MED ONCE .ROUTE ; Start 07/11/19 at 07:57; Stop 07/11/19 at 07:57; Status DC Fentanyl Citrate 30 ml @ 0 mls/hr CONT PRN IV SEE PROTOCOL Last administered on 08/05/19at 06:12; Start 07/11/19 at 08:15; Stop 08/05/19 at 09:19; Status DC Artificial Tears (Artificial Tears) 1 drop PRN Q1HR PRN OU DRY EYE, 1st choice; Start 07/11/19 at 08:15; Stop 08/17/19 at 05:31; Status DC Midazolam HCl 50 mg/Sodium Chloride 50 ml @ 0 mls/hr CONT PRN IV SEE PROTOCOL Last administered on 07/14/19at 22:39; Start 07/11/19 at 08:15; Stop 07/16/19 at 15:59; Status DC Etomidate (Amidate) 8 mg 1X ONCE IV Last administered on 07/11/19at 08:33; Start 07/11/19 at 08:30; Stop 07/11/19 at 08:31; Status DC Succinylcholine Chloride (Anectine) 120 mg 1X ONCE IV Last administered on 07/11/19at 08:34; Start 07/11/19 at 08:30; Stop 07/11/19 at 08:31; Status DC Midazolam HCl (Versed) 5 mg 1X ONCE IV ; Start 07/11/19 at 08:30; Stop 07/11/19 at 08:31; Status DC Potassium Chloride 15 meq/ Bicarbonate Dialysis Soln w/ out KCl 5,007.5 ml @ 1,000 mls/ hr Q5H1M IV Last administered on 07/12/19at 11:11; Start 07/11/19 at 12:00; Stop 07/12/19 at 11:15; Status DC Potassium Chloride 15 meq/ Bicarbonate Dialysis Soln w/ out KCl 5,007.5 ml @ 1,000 mls/ hr Q5H1M IV Last administered on 07/12/19at 11:12; Start 07/11/19 at 12:00; Stop 07/12/19 at 11:17; Status DC Potassium Chloride 15 meq/ Bicarbonate Dialysis Soln w/ out KCl 5,007.5 ml @ 1,000 mls/ hr Q5H1M IV Last administered on 07/12/19at 11:11; Start 07/11/19 at 12:00; Stop 07/12/19 at 11:19; Status DC Sodium Chloride 90 meq/Potassium Chloride 15 meq/ Potassium Phosphate 10 mmol/ Magnesium Sulfate 10 meq/Calcium Gluconate 20 meq/ Multivitamins 10 ml/Chromium/ Copper/Manganese/ Seleni/Zn 0.5 ml/ Total Parenteral Nutrition/Amino Acids/Dextrose/ Fat Emulsion Intravenous 1,400 ml @ 58.333 mls/ hr TPN CONT IV Last administered on 07/11/19at 21:42; Start 07/11/19 at 22:00; Stop 07/12/19 at 21:59; Status DC Heparin Sodium (Porcine) (Heparin Sodium) 5,000 unit Q8HRS SQ Last administered on 07/16/19at 05:55; Start 07/11/19 at 15:00; Stop 07/16/19 at 13:28; Status DC Meropenem 500 mg/ Sodium Chloride 50 ml @ 100 mls/hr Q6HRS IV Last administered on 07/13/19at 06:00; Start 07/12/19 at 09:00; Stop 07/13/19 at 07:29; Status DC Potassium Phosphate 20 mmol/ Sodium Chloride 106.6667 ml @ 51.667 m... 1X ONCE IV Last administered on 07/12/19at 11:22; Start 07/12/19 at 10:15; Stop 07/12/19 at 12:18; Status DC Acetaminophen (Tylenol Supp) 650 mg PRN Q6HRS PRN [place] MILD PAIN / TEMP > 100.3'F Last administered on 10/17/19at 18:16; Start 07/12/19 at 10:30 Potassium Chloride/Water 100 ml @ 100 mls/hr Q1H IV Last administered on 07/12/19at 12:12; Start 07/12/19 at 11:00; Stop 07/12/19 at 12:59; Status DC Potassium Chloride 20 meq/ Bicarbonate Dialysis Soln w/ out KCl 5,010 ml @ 1,000 mls/hr Q5H1M IV Last administered on 07/13/19at 08:48; Start 07/12/19 at 12:00; Stop 07/13/19 at 13:03; Status DC Potassium Chloride 20 meq/ Bicarbonate Dialysis Soln w/ out KCl 5,010 ml @ 1,000 mls/hr Q5H1M IV Last administered on 07/17/19at 14:52; Start 07/12/19 at 11:30; Stop 07/17/19 at 19:59; Status DC Potassium Chloride 20 meq/ Bicarbonate Dialysis Soln w/ out KCl 5,010 ml @ 1,000 mls/hr Q5H1M IV Last administered on 07/17/19at 14:53; Start 07/12/19 at 11:30; Stop 07/17/19 at 19:59; Status DC Sodium Chloride 90 meq/Potassium Chloride 15 meq/ Potassium Phosphate 15 mmol/ Magnesium Sulfate 10 meq/Calcium Gluconate 15 meq/ Multivitamins 10 ml/Chromium/ Copper/Manganese/ Seleni/Zn 0.5 ml/ Total Parenteral Nutrition/Amino Acids/Dextrose/ Fat Emulsion Intravenous 1,400 ml @ 58.333 mls/ hr TPN CONT IV Last administered on 07/12/19at 22:17; Start 07/12/19 at 22:00; Stop 07/13/19 at 21:59; Status DC Cefepime HCl (Maxipime) 2 gm Q12HR IVP Last administered on 07/26/19at 20:56; Start 07/13/19 at 09:00; Stop 07/27/19 at 09:58; Status DC Daptomycin 500 mg/ Sodium Chloride 50 ml @ 100 mls/hr Q48H IV Last administered on 07/29/19at 09:57; Start 07/13/19 at 08:30; Stop 07/29/19 at 10:07; Status DC Lidocaine HCl (Buffered Lidocaine 1%) 3 ml 1X ONCE INJ Last administered on 07/13/19at 10:27; Start 07/13/19 at 10:30; Stop 07/13/19 at 10:31; Status DC Potassium Phosphate 20 mmol/ Sodium Chloride 106.6667 ml @ 51.667 m... 1X ONCE IV Last administered on 07/13/19at 12:51; Start 07/13/19 at 13:00; Stop 07/13/19 at 15:03; Status DC Sodium Chloride 90 meq/Potassium Chloride 15 meq/ Potassium Phosphate 18 mmol/ Magnesium Sulfate 8 meq/Calcium Gluconate 15 meq/ Multivitamins 10 ml/Chromium/ Copper/Manganese/ Seleni/Zn 0.5 ml/ Total Parenteral Nutrition/Amino Acids/Dextrose/ Fat Emulsion Intravenous 1,400 ml @ 58.333 mls/ hr TPN CONT IV Last administered on 07/13/19at 22:16; Start 07/13/19 at 22:00; Stop 07/14/19 at 21:59; Status DC Potassium Chloride 20 meq/ Bicarbonate Dialysis Soln w/ out KCl 5,010 ml @ 1,000 mls/hr Q5H1M IV Last administered on 07/17/19at 14:54; Start 07/13/19 at 16:00; Stop 07/17/19 at 19:59; Status DC Multi-Ingred Cream/Lotion/Oil/ Oint (Artificial Tears Eye Ointment) 1 ramu PRN Q1HR PRN OU DRY EYE, 2nd choice Last administered on 08/01/19at 08:19; Start 07/13/19 at 17:30; Stop 09/21/19 at 14:39; Status DC Sodium Chloride 90 meq/Potassium Chloride 15 meq/ Potassium Phosphate 18 mmol/ Magnesium Sulfate 8 meq/Calcium Gluconate 15 meq/ Multivitamins 10 ml/Chromium/ Copper/Manganese/ Seleni/Zn 0.5 ml/ Total Parenteral Nutrition/Amino Acids/Dextrose/ Fat Emulsion Intravenous 1,400 ml @ 58.333 mls/ hr TPN CONT IV Last administered on 07/14/19at 22:00; Start 07/14/19 at 22:00; Stop 07/15/19 at 21:59; Status DC Albumin Human 500 ml @ 125 mls/hr 1X ONCE IV ; Start 07/14/19 at 14:15; Stop 07/14/19 at 18:14; Status DC Sodium Chloride 90 meq/Potassium Chloride 15 meq/ Potassium Phosphate 18 mmol/ Magnesium Sulfate 8 meq/Calcium Gluconate 15 meq/ Multivitamins 10 ml/Chromium/ Copper/Manganese/ Seleni/Zn 0.5 ml/ Insulin Human Regular 10 unit/ Total Parenteral Nutrition/Amino Acids/Dextrose/ Fat Emulsion Intravenous 1,400 ml @ 58.333 mls/ hr TPN CONT IV Last administered on 07/15/19at 21:43; Start 07/15/19 at 22:00; Stop 07/16/19 at 21:59; Status DC Lidocaine HCl (Buffered Lidocaine 1%) 3 ml STK-MED ONCE .ROUTE ; Start 07/13/19 at 10:00; Stop 07/15/19 at 13:57; Status DC Midazolam HCl 100 mg/Sodium Chloride 100 ml @ 7 mls/hr CONT PRN IV SEE PROTOCOL Last administered on 07/27/19at 15:35; Start 07/16/19 at 16:00; Stop 09/21/19 at 14:38; Status DC Sodium Chloride 90 meq/Potassium Chloride 15 meq/ Potassium Phosphate 18 mmol/ Magnesium Sulfate 8 meq/Calcium Gluconate 15 meq/ Multivitamins 10 ml/Chromium/ Copper/Manganese/ Seleni/Zn 0.5 ml/ Insulin Human Regular 15 unit/ Total Parenteral Nutrition/Amino Acids/Dextrose/ Fat Emulsion Intravenous 1,400 ml @ 58.333 mls/ hr TPN CONT IV Last administered on 07/16/19at 20:34; Start 07/16/19 at 22:00; Stop 07/17/19 at 21:59; Status DC Info (Icu Electrolyte Protocol) 1 ea CONT PRN PRN MC PER PROTOCOL; Start 07/17/19 at 13:15 Sodium Chloride 90 meq/Potassium Chloride 15 meq/ Potassium Phosphate 18 mmol/ Magnesium Sulfate 8 meq/Calcium Gluconate 15 meq/ Multivitamins 10 ml/Chromium/ Copper/Manganese/ Seleni/Zn 0.5 ml/ Insulin Human Regular 15 unit/ Total Parenteral Nutrition/Amino Acids/Dextrose/ Fat Emulsion Intravenous 1,400 ml @ 58.333 mls/ hr TPN CONT IV Last administered on 07/17/19at 22:05; Start 07/17/19 at 22:00; Stop 07/18/19 at 21:59; Status DC Potassium Chloride 15 meq/ Bicarbonate Dialysis Soln w/ out KCl 5,007.5 ml @ 1,000 mls/ hr Q5H1M IV Last administered on 07/20/19at 18:14; Start 07/17/19 at 20:00; Stop 07/21/19 at 13:08; Status DC Potassium Chloride 15 meq/ Bicarbonate Dialysis Soln w/ out KCl 5,007.5 ml @ 1,000 mls/ hr Q5H1M IV Last administered on 07/20/19at 18:14; Start 07/17/19 at 20:00; Stop 07/21/19 at 13:08; Status DC Potassium Chloride 15 meq/ Bicarbonate Dialysis Soln w/ out KCl 5,007.5 ml @ 1,000 mls/ hr Q5H1M IV Last administered on 07/20/19at 18:14; Start 07/17/19 at 20:00; Stop 07/21/19 at 13:08; Status DC Iohexol (Omnipaque 240 Mg/ml) 30 ml 1X ONCE PO Last administered on 07/18/19at 11:30; Start 07/18/19 at 11:30; Stop 07/18/19 at 11:33; Status DC Info (CONTRAST GIVEN -- Rx MONITORING) 1 each PRN DAILY PRN MC SEE COMMENTS; Start 07/18/19 at 11:45; Stop 07/20/19 at 11:44; Status DC Sodium Chloride 90 meq/Potassium Chloride 15 meq/ Potassium Phosphate 18 mmol/ Magnesium Sulfate 8 meq/Calcium Gluconate 15 meq/ Multivitamins 10 ml/Chromium/ Copper/Manganese/ Seleni/Zn 0.5 ml/ Insulin Human Regular 15 unit/ Total Parenteral Nutrition/Amino Acids/Dextrose/ Fat Emulsion Intravenous 1,400 ml @ 58.333 mls/ hr TPN CONT IV Last administered on 07/18/19at 21:47; Start 07/18/19 at 22:00; Stop 07/19/19 at 21:59; Status DC Sodium Chloride 90 meq/Potassium Chloride 15 meq/ Potassium Phosphate 18 mmol/ Magnesium Sulfate 8 meq/Calcium Gluconate 15 meq/ Multivitamins 10 ml/Chromium/ Copper/Manganese/ Seleni/Zn 0.5 ml/ Insulin Human Regular 20 unit/ Total Parenteral Nutrition/Amino Acids/Dextrose/ Fat Emulsion Intravenous 1,400 ml @ 58.333 mls/ hr TPN CONT IV Last administered on 07/19/19at 21:36; Start 07/18 at 22:00; Stop 07/20/19 at 21:59; Status DC Alteplase, Recombinant (Cathflo For Central Catheter Clearance) 1 mg 1X ONCE IN T CAT Last administered on 07/19/19at 20:03; Start 07/19/19 at 19:30; Stop 07/19/19 at 19:46; Status DC Alteplase, Recombinant (Cathflo For Central Catheter Clearance) 1 mg 1X ONCE INT CAT Last administered on 07/19/19at 22:05; Start 07/19/19 at 22:00; Stop 07/19/19 at 22:01; Status DC Sodium Chloride 90 meq/Potassium Chloride 15 meq/ Potassium Phosphate 18 mmol/ Magnesium Sulfate 8 meq/Calcium Gluconate 15 meq/ Multivitamins 10 ml/Chromium/ Copper/Manganese/ Seleni/Zn 0.5 ml/ Insulin Human Regular 20 unit/ Total Parenteral Nutrition/Amino Acids/Dextrose/ Fat Emulsion Intravenous 1,400 ml @ 58.333 mls/ hr TPN CONT IV Last administered on 07/20/19at 21:30; Start 07/20/19 at 22:00; Stop 07/21/19 at 21:59; Status DC Dexmedetomidine HCl 400 mcg/ Sodium Chloride 100 ml @ 0 mls/hr CONT PRN IV ANXIETY / AGITATION Last administered on 09/17/19at 12:57; Start 07/21/19 at 08:15; Stop 09/17/19 at 18:31; Status DC Sodium Chloride 500 ml @ 500 mls/hr 1X PRN PRN IV ELEVATED BP, SEE COMMENTS; Start 07/21/19 at 08:15 Atropine Sulfate (ATROPINE 0.5mg SYRINGE) 0.5 mg PRN Q5MIN PRN IV SEE COMMENTS; Start 07/21/19 at 08:15 Furosemide (Lasix) 20 mg 1X ONCE IVP Last administered on 07/21/19at 08:19; Start 07/21/19 at 08:15; Stop 07/21/19 at 08:16; Status DC Lidocaine HCl (Buffered Lidocaine 1%) 3 ml STK-MED ONCE .ROUTE ; Start 07/21/19 at 08:39; Stop 07/21/19 at 08:39; Status DC Lidocaine HCl (Buffered Lidocaine 1%) 6 ml 1X ONCE INJ Last administered on 07/21/19at 09:05; Start 07/21/19 at 09:00; Stop 07/21/19 at 09:06; Status DC Sodium Chloride 90 meq/Potassium Chloride 15 meq/ Potassium Phosphate 18 mmol/ Magnesium Sulfate 8 meq/Calcium Gluconate 15 meq/ Multivitamins 10 ml/Chromium/ Copper/Manganese/ Seleni/Zn 0.5 ml/ Insulin Human Regular 20 unit/ Total Parenteral Nutrition/Amino Acids/Dextrose/ Fat Emulsion Intravenous 1,400 ml @ 58.333 mls/ hr TPN CONT IV Last administered on 07/21/19at 22:45; Start 07/21/19 at 22:00; Stop 07/22/19 at 21:59; Status DC Sodium Chloride 1,000 ml @ 1,000 mls/hr Q1H PRN IV hypotension; Start 07/22/19 at 07:30; Stop 07/22/19 at 13:29; Status DC Albumin Human 200 ml @ 200 mls/hr 1X PRN PRN IV Hypotension Last administered on 07/22/19at 09:36; Start 07/22/19 at 07:30; Stop 07/22/19 at 13:29; Status DC Sodium Chloride (Normal Saline Flush) 10 ml 1X PRN PRN IV AP catheter pack; Start 07/22/19 at 07:30; Stop 07/22/19 at 21:29; Status DC Sodium Chloride (Normal Saline Flush) 10 ml 1X PRN PRN IV COMMUNITY MANAGER catheter pack; Start 07/22/19 at 07:30; Stop 07/23/19 at 07:29; Status DC Sodium Chloride 1,000 ml @ 400 mls/hr Q2H30M PRN IV PATENCY; Start 07/22/19 at 07:30; Stop 07/22/19 at 19:29; Status DC Info (PHARMACY MONITORING -- do not chart) 1 each PRN DAILY PRN MC SEE COMMENTS; Start 07/22/19 at 07:30; Stop 07/22/19 at 13:02; Status DC Info (PHARMACY MONITORING -- do not chart) 1 each PRN DAILY PRN MC SEE COMMENTS; Start 07/22/19 at 07:30; Stop 07/24/19 at 12:45; Status DC Sodium Chloride 90 meq/Potassium Chloride 15 meq/ Potassium Phosphate 10 mmol/ Magnesium Sulfate 8 meq/Calcium Gluconate 15 meq/ Multivitamins 10 ml/Chromium/ Copper/Manganese/ Seleni/Zn 0.5 ml/ Insulin Human Regular 25 unit/ Total Parenteral Nutrition/Amino Acids/Dextrose/ Fat Emulsion Intravenous 1,400 ml @ 58.333 mls/ hr TPN CONT IV Last administered on 07/22/19at 22:19; Start 07/22/19 at 22:00; Stop 07/23/19 at 21:59; Status DC Heparin Sodium (Porcine) (Heparin Sodium) 5,000 unit Q12HR SQ Last administered on 08/14/19at 08:59; Start 07/22/19 at 21:00; Stop 08/14/19 at 10:05; Status DC Ondansetron HCl (Zofran) 4 mg PRN Q6HRS PRN IV NAUSEA/VOMITING; Start 07/25/19 at 07:00; Stop 07/26/19 at 06:59; Status DC Fentanyl Citrate (Fentanyl 2ml Vial) 25 mcg PRN Q5MIN PRN IV MILD PAIN 1-3; Start 07/25/19 at 07:00; Stop 07/26/19 at 06:59; Status DC Fentanyl Citrate (Fentanyl 2ml Vial) 50 mcg PRN Q5MIN PRN IV MODERATE TO SEVERE PAIN; Start 07/25/19 at 07:00; Stop 07/26/19 at 06:59; Status DC Ringer's Solution 1,000 ml @ 30 mls/hr Q24H IV ; Start 07/25/19 at 07:00; Stop 07/25/19 at 18:59; Status DC Lidocaine HCl (Xylocaine-Mpf 1% 2ml Vial) 2 ml PRN 1X PRN ID PRIOR TO IV START; Start 07/25/19 at 07:00; Stop 07/26/19 at 06:59; Status DC Prochlorperazine Edisylate (Compazine) 5 mg PACU PRN PRN IV NAUSEA, MRX1; Start 07/25/19 at 07:00; Stop 07/26/19 at 06:59; Status DC Sodium Chloride 1,000 ml @ 1,000 mls/hr Q1H PRN IV hypotension; Start 07/23/19 at 09:10; Stop 07/23/19 at 15:09; Status DC Albumin Human 200 ml @ 200 mls/hr 1X PRN PRN IV Hypotension Last administered on 07/23/19at 10:10; Start 07/23/19 at 09:15; Stop 07/23/19 at 15:14; Status DC Sodium Chloride 1,000 ml @ 400 mls/hr Q2H30M PRN IV PATENCY; Start 07/23/19 at 09:10; Stop 07/23/19 at 21:09; Status DC Info (PHARMACY MONITORING -- do not chart) 1 each PRN DAILY PRN MC SEE COMMENTS; Start 07/23/19 at 09:15; Stop 07/24/19 at 12:45; Status DC Info (PHARMACY MONITORING -- do not chart) 1 each PRN DAILY PRN MC SEE COMMENTS; Start 07/23/19 at 09:15; Stop 07/24/19 at 12:45; Status DC Sodium Chloride 90 meq/Potassium Chloride 15 meq/ Potassium Phosphate 10 mmol/ Magnesium Sulfate 8 meq/Calcium Gluconate 15 meq/ Multivitamins 10 ml/Chromium/ Copper/Manganese/ Seleni/Zn 0.5 ml/ Insulin Human Regular 25 unit/ Total Parenteral Nutrition/Amino Acids/Dextrose/ Fat Emulsion Intravenous 1,400 ml @ 58.333 mls/ hr TPN CONT IV Last administered on 07/23/19at 22:10; Start 07/23/19 at 22:00; Stop 07/24/19 at 21:59; Status DC Magnesium Sulfate 50 ml @ 25 mls/hr PRN DAILY PRN IV for Mag < 1.7 on am labs Last administered on 10/06/19at 10:57; Start 07/24/19 at 09:15 Sodium Chloride 90 meq/Potassium Chloride 15 meq/ Potassium Phosphate 10 mmol/ Magnesium Sulfate 8 meq/Calcium Gluconate 15 meq/ Multivitamins 10 ml/Chromium/ Copper/Manganese/ Seleni/Zn 0.5 ml/ Insulin Human Regular 25 unit/ Total Parenteral Nutrition/Amino Acids/Dextrose/ Fat Emulsion Intravenous 1,400 ml @ 58.333 mls/ hr TPN CONT IV Last administered on 07/24/19at 21:20; Start 07/24/19 at 22:00; Stop 07/25/19 at 21:59; Status DC Sodium Chloride 1,000 ml @ 1,000 mls/hr Q1H PRN IV hypotension; Start 07/24/19 at 12:23; Stop 07/24/19 at 18:22; Status DC Albumin Human 200 ml @ 200 mls/hr 1X ONCE IV Last administered on 07/24/19at 13:34; Start 07/24/19 at 12:30; Stop 07/24/19 at 13:29; Status DC Diphenhydramine HCl (Benadryl) 25 mg 1X PRN PRN IV ITCHING; Start 07/24/19 at 12:30; Stop 07/25/19 at 12:29; Status DC Diphenhydramine HCl (Benadryl) 25 mg 1X PRN PRN IV ITCHING; Start 07/24/19 at 12:30; Stop 07/25/19 at 12:29; Status DC Info (PHARMACY MONITORING -- do not chart) 1 each PRN DAILY PRN MC SEE COMMENTS; Start 07/24/19 at 12:30; Status Cancel Bupivacaine HCl/ Epinephrine Bitart (Sensorcain-Epi 0.5%-1:[id number] Mpf) 30 ml STK-MED ONCE .ROUTE Last administered on 07/25/19at 11:44; Start 07/25/19 at 11:00; Stop 07/25/19 at 11:01; Status DC Cellulose (Surgicel Fibrillar 1x2) 1 each STK-MED ONCE .ROUTE ; Start 07/25/19 at 11:00; Stop 07/25/19 at 11:01; Status DC Sodium Chloride 90 meq/Potassium Chloride 15 meq/ Potassium Phosphate 10 mmol/ Magnesium Sulfate 12 meq/Calcium Gluconate 15 meq/ Multivitamins 10 ml/Chromium/ Copper/Manganese/ Seleni/Zn 0.5 ml/ Insulin Human Regular 25 unit/ Total Pare nteral Nutrition/Amino Acids/Dextrose/ Fat Emulsion Intravenous 1,400 ml @ 58.333 mls/ hr TPN CONT IV Last administered on 07/25/19at 22:24; Start 07/25/19 at 22:00; Stop 07/26/19 at 21:59; Status DC Propofol 20 ml @ As Directed STK-MED ONCE IV ; Start 07/25/19 at 11:07; Stop 07/25/19 at 11:07; Status DC Cellulose (Surgicel Hemostat 4x8) 1 each STK-MED ONCE .ROUTE Last administered on 07/25/19at 11:44; Start 07/25/19 at 11:55; Stop 07/25/19 at 11:56; Status DC Sevoflurane (Ultane) 60 ml STK-MED ONCE IH ; Start 07/25/19 at 12:46; Stop 07/25/19 at 12:46; Status DC Sodium Chloride 1,000 ml @ 1,000 mls/hr Q1H PRN IV hypotension; Start 07/25/19 at 13:51; Stop 07/25/19 at 19:50; Status DC Albumin Human 200 ml @ 200 mls/hr 1X PRN PRN IV Hypotension Last administered on 07/25/19at 14:51; Start 07/25/19 at 14:00; Stop 07/25/19 at 19:59; Status DC Diphenhydramine HCl (Benadryl) 25 mg 1X PRN PRN IV ITCHING; Start 07/25/19 at 14:00; Stop 07/26/19 at 13:59; Status DC Diphenhydramine HCl (Benadryl) 25 mg 1X PRN PRN IV ITCHING; Start 07/25/19 at 14:00; Stop 07/26/19 at 13:59; Status DC Sodium Chloride 1,000 ml @ 400 mls/hr Q2H30M PRN IV PATENCY; Start 07/25/19 at 13:51; Stop 07/26/19 at 01:50; Status DC Info (PHARMACY MONITORING -- do not chart) 1 each PRN DAILY PRN MC SEE COMME NTS; Start 07/25/19 at 14:00; Stop 07/28/19 at 08:16; Status DC Heparin Sodium (Porcine) (Hep Lock Adult) 500 unit STK-MED ONCE IVP ; Start 07/26/19 at 09:29; Stop 07/26/19 at 09:30; Status DC Sodium Chloride 1,000 ml @ 1,000 mls/hr Q1H PRN IV hypotension; Start 07/26/19 at 10:43; Stop 07/26/19 at 16:42; Status DC Sodium Chloride 1,000 ml @ 400 mls/hr Q2H30M PRN IV PATENCY; Start 07/26/19 at 10:43; Stop 07/26/19 at 22:42; Status DC Info (PHARMACY MONITORING -- do not chart) 1 each PRN DAILY PRN MC SEE PIPE TS; Start 07/26/19 at 10:45; Status UNV Info (PHARMACY MONITORING -- do not chart) 1 each PRN DAILY PRN MC SEE COMMENTS; Start 07/26/19 at 10:45; Status UNV Sodium Chloride 90 meq/Potassium Chloride 15 meq/ Magnesium Sulfate 12 meq/Calcium Gluconate 15 meq/ Multivitamins 10 ml/Chromium/ Copper/Manganese/ Seleni/Zn 0.5 ml/ Insulin Human Regular 25 unit/ Total Parenteral Nutrition/A jeb Acids/Dextrose/ Fat Emulsion Intravenous 1,400 ml @ 58.333 mls/ hr TPN CONT IV Last administered on 07/26/19at 22:13; Start 07/26/19 at 22:00; Stop 07/27/19 at 21:59; Status DC Sodium Chloride 1,000 ml @ 1,000 mls/hr Q1H PRN IV hypotension; Start 07/27/19 at 07:50; Stop 07/27/19 at 13:49; Status DC Albumin Human 200 ml @ 200 mls/hr 1X ONCE IV ; Start 07/27/19 at 08:00; Stop 07/27/19 at 08:53; Status DC Diphenhydramine HCl (Benadryl) 25 mg 1X PRN PRN IV ITCHING; Start 07/27/19 at 08:00; Stop 07/28/19 at 07:59; Status DC Diphenhydramine HCl (Benadryl) 25 mg 1X PRN PRN IV ITCHING; Start 07/27/19 at 08:00; Stop 07/28/19 at 07:59; Status DC Info (PHARMACY MONITORING -- do not chart) 1 each PRN DAILY PRN MC SEE COMMENTS; Start 07/27/19 at 08:00; Stop 07/28/19 at 08:16; Status DC Albumin Human 50 ml @ 50 mls/hr 1X ONCE IV ; Start 07/27/19 at 08:53; Stop 07/27/19 at 08:56; Status DC Albumin Human 200 ml @ 50 mls/hr PRN 1X PRN IV HYPOTENSION Last administered on 08/02/19at 11:54; Start 07/27/19 at 09:00; Stop 09/08/19 at 11:14; Status DC Meropenem 500 mg/ Sodium Chloride 50 ml @ 100 mls/hr Q12H IV Last administered on 08/16/19at 10:45; Start 07/27/19 at 10:00; Stop 08/16/19 at 12:37; Status DC Sodium Chloride 90 meq/Magnesium Sulfate 12 meq/ Calcium Gluconate 15 meq/ Multivitamins 10 ml/Chromium/ Copper/Manganese/ Seleni/Zn 0.5 ml/ Insulin Human Regular 25 unit/ Total Parenteral Nutrition/Amino Acids/Dextrose/ Fat Emulsion Intravenous 1,400 ml @ 58.333 mls/ hr TPN CONT IV Last administered on 07/27/19at 21:41; Start 07/27/19 at 22:00; Stop 07/28/19 at 21:59; Status DC Sodium Chloride 1,000 ml @ 1,000 mls/hr Q1H PRN IV hypotension; Start 07/28/19 at 07:58; Stop 07/28/19 at 13:57; Status DC Albumin Human 200 ml @ 200 mls/hr 1X PRN PRN IV Hypotension Last administered on 07/28/19at 09:30; Start 07/28/19 at 08:00; Stop 07/28/19 at 13:59; Status DC Sodium Chloride 1,000 ml @ 400 mls/hr Q2H30M PRN IV PATENCY; Start 07/28/19 at 07:58; Stop 07/28/19 at 19:57; Status DC Info (PHARMACY MONITORING -- do not chart) 1 each PRN DAILY PRN MC SEE COMMENTS; Start 07/28/19 at 08:00; Status Cancel Info (PHARMACY MONITORING -- do not chart) 1 each PRN DAILY PRN MC SEE COMMENTS; Start 07/28/19 at 08:15; Status UNV Sodium Chloride 90 meq/Potassium Phosphate 5 mmol/ Magnesium Sulfate 12 meq/Calcium Gluconate 15 meq/ Multivitamins 10 ml/Chromium/ Copper/Manganese/ Seleni/Zn 0.5 ml/ Insulin Human Regular 30 unit/ Total Parenteral Nutrition/Amino Acids/Dextrose/ Fat Emulsion Intravenous 1,400 ml @ 58.333 mls/ hr TPN CONT IV Last administered on 07/28/19at 22:08; Start 07/28/19 at 22:00; Stop 07/29/19 at 21:59; Status DC Linezolid/Dextrose 300 ml @ 300 mls/hr Q12HR IV Last administered on 08/08/19at 20:40; Start 07/29/19 at 11:00; Stop 08/09/19 at 08:10; Status DC Sodium Chloride 90 meq/Potassium Phosphate 15 mmol/ Magnesium Sulfate 12 meq/Calcium Gluconate 15 meq/ Multivitamins 10 ml/Chromium/ Copper/Manganese/ Se dinorah/Zn 0.5 ml/ Insulin Human Regular 30 unit/ Total Parenteral Nutrition/Amino Acids/Dextrose/ Fat Emulsion Intravenous 1,400 ml @ 58.333 mls/ hr TPN CONT IV Last administered on 07/29/19at 21:49; Start 07/29/19 at 22:00; Stop 07/30/19 at 21:59; Status DC Sodium Chloride 90 meq/Potassium Phosphate 15 mmol/ Magnesium Sulfate 12 meq/Calcium Gluconate 15 meq/ Multivitamins 10 ml/Chromium/ Copper/Manganese/ Seleni/Zn 0.5 ml/ Insulin Human Regular 40 unit/ Total Parenteral Nutrition/Amino Acids/Dextrose/ Fat Emulsion Intravenous 1,400 ml @ 58.333 mls/ hr TPN CONT IV Last administered on 07/30/19at 21:21; Start 07/30/19 at 22:00; Stop 07/31/19 at 21:59; Status DC Sodium Chloride 1,000 ml @ 1,000 mls/hr Q1H PRN IV hypotension; Start 07/30/19 at 13:26; Stop 07/30/19 at 19:25; Status DC Albumin Human 200 ml @ 200 mls/hr 1X PRN PRN IV Hypotension Last administered on 07/30/19at 15:00; Start 07/30/19 at 13:30; Stop 07/30/19 at 19:29; Status DC Sodium Chloride (Normal Saline Flush) 10 ml 1X PRN PRN IV AP catheter pack; Start 07/30/19 at 13:30; Stop 07/31/19 at 13:29; Status DC Sodium Chloride (Normal Saline Flush) 10 ml 1X PRN PRN IV COMM[employer]ITY [employer]GER catheter pack; Start 07/30/19 at 13:30; Stop 07/31/19 at 13:29; Status DC Sodium Chloride 1,000 ml @ 400 mls/hr Q2H30M PRN IV PATENCY; Start 07/30/19 at 13:26; Stop 07/31/19 at 01:25; Status DC Info (PHARMACY MONITORING -- do not chart) 1 each PRN DAILY PRN MC SEE COMMENTS; Start 07/30/19 at 13:30; Stop 07/30/19 at 13:33; Status DC Info (PHARMACY MONITORING -- do not chart) 1 each PRN DAILY PRN MC SEE COMMENTS; Start 07/30/19 at 13:30; Stop 07/30/19 at 13:34; Status DC Sodium Chloride 90 meq/Potassium Phosphate 19 mmol/ Magnesium Sulfate 12 meq/Calcium Gluconate 15 meq/ Multivitamins 10 ml/Chromium/ Copper/Manganese/ Seleni/Zn 0.5 ml/ Insulin Human Regular 40 unit/ Total Parenteral Nutrition/Amino Acids/Dextrose/ Fat Emulsion Intravenous 1,400 ml @ 58.333 mls/ hr TPN CONT IV Last administered on 07/31/19at 21:54; Start 07/31/19 at 22:00; Stop 08/01/19 at 21:59; Status DC Sodium Chloride 1,000 ml @ 1,000 mls/hr Q1H PRN IV hypotension; Start 08/01/19 at 09:35; Stop 08/01/19 at 15:34; Status DC Albumin Human 200 ml @ 200 mls/hr 1X PRN PRN IV Hypotension; Start 08/01/19 at 09:45; Stop 08/01/19 at 15:44; Status DC Diphenhydramine HCl (Benadryl) 25 mg 1X PRN PRN IV ITCHING; Start 08/01/19 at 09:45; Stop 08/02/19 at 09:44; Status DC Diphenhydramine HCl (Benadryl) 25 mg 1X PRN PRN IV ITCHING; Start 08/01/19 at 09:45; Stop 08/02/19 at 09:44; Status DC Sodium Chloride 1,000 ml @ 400 mls/hr Q2H30M PRN IV PATENCY; Start 08/01/19 at 09:35; Stop 08/01/19 at 21:34; Status DC Info (PHARMACY MONITORING -- do not chart) 1 each PRN DAILY PRN MC SEE COMMENTS; Start 08/01/19 at 09:45; Status Cancel Sodium Chloride 100 meq/Potassium Phosphate 19 mmol/ Magnesium Sulfate 12 meq/Calcium Gluconate 15 meq/ Multivitamins 10 ml/Chromium/ Copper/Manganese/ Seleni/Zn 0.5 ml/ Insulin Human Regular 40 unit/ Potassium Chloride 20 meq/ Total Parenteral Nutrition/Amino Acids/Dextrose/ Fat Emulsion Intravenous 1,400 ml @ 58.333 mls/ hr TPN CONT IV Last administered on 08/01/19at 22:02; Start 08/01/19 at 22:00; Stop 08/02/19 at 21:59; Status DC Furosemide (Lasix) 40 mg 1X ONCE IVP Last administered on 08/01/19at 14:39; Start 08/01/19 at 14:30; Stop 08/01/19 at 14:31; Status DC Metronidazole 100 ml @ 100 mls/hr Q8HRS IV Last administered on 08/09/19at 06:04; Start 08/02/19 at 10:00; Stop 08/09/19 at 08:10; Status DC Sodium Chloride 1,000 ml @ 1,000 mls/hr Q1H PRN IV hypotension; Start 08/02/19 at 08:00; Stop 08/02/19 at 13:59; Status DC Albumin Human 200 ml @ 200 mls/hr 1X PRN PRN IV Hypotension; Start 08/02/19 at 08:00; Stop 08/02/19 at 13:59; Status DC Sodium Chloride 1,000 ml @ 400 mls/hr Q2H30M PRN IV PATENCY; Start 08/02/19 at 08:00; Stop 08/02/19 at 19:59; Status DC Info (PHARMACY MONITORING -- do not chart) 1 each PRN DAILY PRN MC SEE COMMENTS; Start 08/02/19 at 11:30; Status UNV Info (PHARMACY MONITORING -- do not chart) 1 each PRN DAILY PRN MC SEE COMMENTS; Start 08/02/19 at 11:30; Stop 08/04/19 at 12:13; Status DC Sodium Chloride 100 meq/Potassium Phosphate 19 mmol/ Magnesium Sulfate 12 meq/Calcium Gluconate 15 meq/ Multivitamins 10 ml/Chromium/ Copper/Manganese/ Seleni/Zn 0.5 ml/ Insulin Human Regular 40 unit/ Potassium Chloride 20 meq/ Total Parenteral Nutrition/Amino Acids/Dextrose/ Fat Emulsion Intravenous 1,400 ml @ 58.333 mls/ hr TPN CONT IV Last administered on 08/02/19at 21:52; Start 08/02/19 at 22:00; Stop 08/03/19 at 21:59; Status DC Sodium Chloride (Normal Saline Flush) 10 ml QSHIFT PRN IV AFTER MEDS AND BLOOD DRAWS; Start 08/02/19 at 15:00; Stop 08/30/19 at 11:27; Status DC Sodium Chloride (Normal Saline Flush) 10 ml PRN Q5MIN PRN IV AFTER MEDS AND BLOOD DRAWS; Start 08/02/19 at 15:00 Sodium Chloride (Normal Saline Flush) 20 ml PRN Q5MIN PRN IV AFTER MEDS AND BLOOD DRAWS; Start 08/02/19 at 15:00 Sodium Chloride 100 meq/Potassium Phosphate 19 mmol/ Magnesium Sulfate 12 meq/Calcium Gluconate 15 meq/ Multivitamins 10 ml/Chromium/ Copper/Manganese/ Seleni/Zn 0.5 ml/ Insulin Human Regular 40 unit/ Potassium Chloride 20 meq/ Total Parenteral Nutrition/Amino Acids/Dextrose/ Fat Emulsion Intravenous 1,400 ml @ 58.333 mls/ hr TPN CONT IV Last administered on 08/03/19at 21:20; Start 08/03/19 at 22:00; Stop 08/04/19 at 21:59; Status DC Lidocaine HCl (Buffered Lidocaine 1%) 3 ml STK-MED ONCE .ROUTE ; Start 08/03/19 at 13:16; Stop 08/03/19 at 13:16; Status DC Lidocaine HCl (Buffered Lidocaine 1%) 6 ml 1X ONCE INJ Last administered on 08/03/19at 13:45; Start 08/03/19 at 13:30; Stop 08/03/19 at 13:31; Status DC Albumin Human 100 ml @ 100 mls/hr 1X ONCE IV Last administered on 08/03/19at 15:41; Start 08/03/19 at 15:00; Stop 08/03/19 at 15:59; Status DC Albumin Human 50 ml @ 50 mls/hr 1X ONCE IV Last administered on 08/03/19at 15:00; Start 08/03/19 at 15:00; Stop 08/03/19 at 15:59; Status DC Info (PHARMACY MONITORING -- do not chart) 1 each PRN DAILY PRN MC SEE COMMENTS; Start 08/04/19 at 11:30; Status Cancel Info (PHARMACY MONITORING -- do not chart) 1 each PRN DAILY PRN MC SEE COMMENTS; Start 08/04/19 at 11:30; Status UNV Sodium Chloride 100 meq/Potassium Phosphate 10 mmol/ Magnesium Sulfate 12 meq/Calcium Gluconate 15 meq/ Multivitamins 10 ml/Chromium/ Copper/Manganese/ Seleni/Zn 0.5 ml/ Insulin Human Regular 35 unit/ Potassium Chloride 20 meq/ Total Parenteral Nutrition/Amino Acids/Dextrose/ Fat Emulsion Intravenous 1,400 ml @ 58.333 mls/ hr TPN CONT IV Last administered on 08/04/19at 22:10; Start 08/04/19 at 22:00; Stop 08/05/19 at 21:59; Status DC Sodium Chloride 100 meq/Potassium Phosphate 5 mmol/ Magnesium Sulfate 12 meq/Calcium Gluconate 15 meq/ Multivitamins 10 ml/Chromium/ Copper/Manganese/ Seleni/Zn 0.5 ml/ Insulin Human Regular 35 unit/ Potassium Chloride 20 meq/ Total Parenteral Nutrition/Amino Acids/Dextrose/ Fat Emulsion Intravenous 1,400 ml @ 58.333 mls/ hr TPN CONT IV Last administered on 08/05/19at 22:59; Start 08/05/19 at 22:00; Stop 08/06/19 at 21:59; Status DC Sodium Chloride 1,000 ml @ 1,000 mls/hr Q1H PRN IV hypotension; Start 08/06/19 at 08:27; Stop 08/06/19 at 14:26; Status DC Albumin Human 200 ml @ 200 mls/hr 1X PRN PRN IV Hypotension Last administered on 08/06/19at 09:18; Start 08/06/19 at 08:30; Stop 08/06/19 at 14:29; Status DC Sodium Chloride 1,000 ml @ 400 mls/hr Q2H30M PRN IV PATENCY; Start 08/06/19 at 08:27; Stop 08/06/19 at 20:26; Status DC Info (PHARMACY MONITORING -- do not chart) 1 each PRN DAILY PRN MC SEE COMMENTS; Start 08/06/19 at 08:30; Status Cancel Info (PHARMACY MONITORING -- do not chart) 1 each PRN DAILY PRN MC SEE COMMENTS; Start 08/06/19 at 08:30; Stop 08/14/19 at 13:10; Status DC Sodium Chloride 100 meq/Potassium Chloride 40 meq/ Magnesium Sulfate 15 meq/Calcium Gluconate 15 meq/ Multivitamins 10 ml/Chromium/ Copper/Manganese/ Seleni/Zn 0.5 ml/ Insulin Human Regular 35 unit/ Total Parenteral Nutrition/Amino Acids/Dextrose/ Fat Emulsion Intravenous 1,400 ml @ 58.333 mls/ hr TPN CONT IV Last administered on 08/06/19at 22:00; Start 08/06/19 at 22:00; Stop 08/07/19 at 21:59; Status DC Potassium Chloride/Water 100 ml @ 100 mls/hr 1X ONCE IV Last administered on 08/06/19at 17:28; Start 08/06/19 at 14:45; Stop 08/06/19 at 15:44; Status DC Sodium Chloride 100 meq/Potassium Chloride 40 meq/ Magnesium Sulfate 15 meq/Calcium Gluconate 15 meq/ Multivitamins 10 ml/Chromium/ Copper/Manganese/ Seleni/Zn 0.5 ml/ Insulin Human Regular 35 unit/ Total Parenteral Nutrition/Amino Acids/Dextrose/ Fat Emulsion Intravenous 1,400 ml @ 58.333 mls/ hr TPN CONT IV Last administered on 08/07/19at 22:46; Start 08/07/19 at 22:00; Stop 08/08/19 at 21:59; Status DC Sodium Chloride 100 meq/Potassium Chloride 40 meq/ Magnesium Sulfate 20 meq/Calcium Gluconate 15 meq/ Multivitamins 10 ml/Chromium/ Copper/Manganese/ Seleni/Zn 0.5 ml/ Insulin Human Regular 35 unit/ Total Parenteral Nutriti on/Amino Acids/Dextrose/ Fat Emulsion Intravenous 1,400 ml @ 58.333 mls/ hr TPN CONT IV Last administered on 08/08/19at 22:31; Start 08/08/19 at 22:00; Stop 08/09/19 at 21:59; Status DC Fentanyl Citrate (Fentanyl 2ml Vial) 50 mcg PRN Q2HR PRN IVP PAIN Last administered on 08/15/19at 13:32; Start 08/08/19 at 21:00; Stop 08/16/19 at 12:53; Status DC Fentanyl Citrate (Fentanyl 2ml Vial) 25 mcg PRN Q2HR PRN IVP PAIN; Start 08/08/19 at 21:00; Stop 08/16/19 at 12:54; Status DC Enoxaparin Sodium (Lovenox 100mg Syringe) 100 mg Q12HR SQ ; Start 08/09/19 at 21:00; Status UNV Amino Acids/ Glycerin/ Electrolytes 1,000 ml @ 75 mls/hr [id number] IV ; Start 08/08/19 at 21:15; Status UNV Sodium Chloride 1,000 ml @ 1,000 mls/hr Q1H PRN IV hypotension; Start 08/09/19 at 07:56; Stop 08/09/19 at 13:55; Status DC Albumin Human 200 ml @ 200 mls/hr 1X PRN PRN IV Hypotension Last administered on 08/09/19at 08:40; Start 08/09/19 at 08:00; Stop 08/09/19 at 13:59; Status DC Sodium Chloride 1,000 ml @ 400 mls/hr Q2H30M PRN IV PATENCY; Start 08/09/19 at 07:56; Stop 08/09/19 at 19:55; Status DC Info (PHARMACY MONITORING -- do not chart) 1 each PRN DAILY PRN MC SEE COMMENTS; Start 08/09/19 at 08:00; Status UNV Info (PHARMACY MONITORING -- do not chart) 1 each PRN DAILY PRN MC SEE COMMENTS; Start 08/09/19 at 08:00; Status UNV Daptomycin 430 mg/ Sodium Chloride 50 ml @ 100 mls/hr Q24H IV Last adminis tered on 08/09/19at 12:35; Start 08/09/19 at 09:00; Stop 08/09/19 at 12:49; Status DC Sodium Chloride 100 meq/Potassium Chloride 40 meq/ Magnesium Sulfate 20 meq/Calcium Gluconate 15 meq/ Multivitamins 10 ml/Chromium/ Copper/Manganese/ Seleni/Zn 0.5 ml/ Insulin Human Regular 35 unit/ Total Parenteral Nutrition/Amino Acids/Dextrose/ Fat Emulsion Intravenous 1,400 ml @ 58.333 mls/ hr TPN CONT IV Last administered on 08/09/19at 21:26; Start 08/09/19 at 22:00; Stop 08/10/19 at 21:59; Status DC Daptomycin 430 mg/ Sodium Chloride 50 ml @ 100 mls/hr Q48H IV ; Start 08/11/19 at 09:00; Stop 08/10/19 at 11:55; Status DC Sodium Chloride 100 meq/Potassium Chloride 40 meq/ Magnesium Sulfate 20 meq/Calcium Gluconate 15 meq/ Multivitamins 10 ml/Chromium/ Copper/Manganese/ Seleni/Zn 0.5 ml/ Insulin Human Regular 35 unit/ Total Parenteral Nutrition/Amino Acids/Dextrose/ Fat Emulsion Intravenous 1,400 ml @ 58.333 mls/ hr TPN CONT IV Last administered on 08/10/19at 22:27; Start 08/10/19 at 22:00; Stop 08/11/19 at 21:59; Status DC Daptomycin 430 mg/ Sodium Chloride 50 ml @ 100 mls/hr Q24H IV Last administered on 08/12/19at 15:07; Start 08/10/19 at 13:00; Stop 08/13/19 at 13:15; Status DC Sodium Chloride 100 meq/Potassium Chloride 40 meq/ Magnesium Sulfate 20 meq/Calcium Gluconate 10 meq/ Multivitamins 10 ml/Chromium/ Copper/Manganese/ Seleni/Zn 0.5 ml/ Insulin Human Regular 35 unit/ Total Parenteral Nutrition/Amino Acids/Dextrose/ Fat Emulsion Intravenous 1,400 ml @ 58.333 mls/ hr TPN CONT IV Last administered on 08/12/19at 00:06; Start 08/11/19 at 22:00; Stop 08/12/19 at 21:59; Status DC Alteplase, Recombinant (Cathflo For Central Catheter Clearance) 1 mg 1X ONCE INT CAT Last administered on 08/12/19at 11:44; Start 08/12/19 at 10:45; Stop 08/12/19 at 10:46; Status DC Ondansetron HCl (Zofran) 4 mg PRN Q6HRS PRN IV NAUSEA/VOMITING; Start 08/15/19 at 07:00; Stop 08/16/19 at 06:59; Status DC Fentanyl Citrate (Fentanyl 2ml Vial) 25 mcg PRN Q5MIN PRN IV MILD PAIN 1-3; Start 08/15/19 at 07:00; Stop 08/16/19 at 06:59; Status DC Fentanyl Citrate (Fentanyl 2ml Vial) 50 mcg PRN Q5MIN PRN IV MODERATE TO SEVERE PAIN Last administered on 08/15/19at 10:17; Start 08/15/19 at 07:00; Stop 08/16/19 at 06:59; Status DC Ringer's Solution 1,000 ml @ 30 mls/hr Q24H IV ; Start 08/15/19 at 07:00; Stop 08/15/19 at 18:59; Status DC Lidocaine HCl (Xylocaine-Mpf 1% 2ml Vial) 2 ml PRN 1X PRN ID PRIOR TO IV START; Start 08/15/19 at 07:00; Stop 08/16/19 at 06:59; Status DC Prochlorperazine Edisylate (Compazine) 5 mg PACU PRN PRN IV NAUSEA, MRX1; Start 08/15/19 at 07:00; Stop 08/16/19 at 06:59; Status DC Sodium Acetate 50 meq/Potassium Acetate 55 meq/ Magnesium Sulfate 20 meq/Calcium Gluconate 10 meq/ Multivitamins 10 ml/Chromium/ Copper/Manganese/ Seleni/Zn 0.5 ml/ Insulin Human Regular 35 unit/ Total Parenteral Nutrition/Amino Acids/Dextrose/ Fat Emulsion Intravenous 1,400 ml @ 58.333 mls/ hr TPN CONT IV ; Start 08/12/19 at 22:00; Stop 08/12/19 at 14:15; Status DC Sodium Acetate 50 meq/Potassium Acetate 55 meq/ Magnesium Sulfate 20 meq/Calcium Gluconate 10 meq/ Multivitamins 10 ml/Chromium/ Copper/Manganese/ Seleni/Zn 0.5 ml/ Insulin Human Regular 35 unit/ Total Parenteral Nutrition/Amino Acids/Dextrose/ Fat Emulsion Intravenous 1,800 ml @ 75 mls/hr TPN CONT IV Last administered on 08/12/19at 22:38; Start 08/12/19 at 22:00; Stop 08/13/19 at 21:59; Status DC Sodium Chloride 1,000 ml @ 1,000 mls/hr Q1H PRN IV hypotension; Start 08/12/19 at 15:31; Stop 08/12/19 at 21:30; Status DC Diphenhydramine HCl (Benadryl) 25 mg 1X PRN PRN IV ITCHING; Start 08/12/19 at 15:45; Stop 08/13/19 at 15:44; Status DC Diphenhydramine HCl (Benadryl) 25 mg 1X PRN PRN IV ITCHING; Start 08/12/19 at 15:45; Stop 08/13/19 at 15:44; Status DC Sodium Chloride 1,000 ml @ 400 mls/hr Q2H30M PRN IV PATENCY; Start 08/12/19 at 15:31; Stop 08/13/19 at 03:30; Status DC Info (PHARMACY MONITORING -- do not chart) 1 each PRN DAILY PRN MC SEE COMME NTS; Start 08/12/19 at 15:45; Stop 09/13/19 at 14:14; Status DC Sodium Acetate 50 meq/Potassium Acetate 55 meq/ Magnesium Sulfate 20 meq/Calcium Gluconate 10 meq/ Multivitamins 10 ml/Chromium/ Copper/Manganese/ Seleni/Zn 0.5 ml/ Insulin Human Regular 35 unit/ Total Parenteral Nutrition/Amino Acids/Dextrose/ Fat Emulsion Intravenous 1,800 ml @ 75 mls/hr TPN CONT IV Last administered on 08/13/19at 22:03; Start 08/13/19 at 22:00; Stop 08/14/19 at 21:59; Status DC Daptomycin 430 mg/ Sodium Chloride 50 ml @ 100 mls/hr Q24H IV Last administered on 08/18/19at 13:00; Start 08/13/19 at 13:00; Stop 08/18/19 at 20:58; Status DC Heparin Sodium (Porcine) 1000 unit/Sodium Chloride 1,001 ml @ 1,001 mls/hr 1X ONCE IRR ; Start 08/15/19 at 06:00; Stop 08/15/19 at 06:59; Status DC Potassium Acetate 55 meq/Magnesium Sulfate 20 meq/ Calcium Gluconate 10 meq/ Multivitamins 10 ml/Chromium/ Copper/Manganese/ Seleni/Zn 0.5 ml/ Insulin Human Regular 35 unit/ Total Parenteral Nutrition/Amino Acids/Dextrose/ Fat Emulsion Intravenous 1,920 ml @ 80 mls/hr TPN CONT IV Last administered on 08/14/19at 22:10; Start 08/14/19 at 22:00; Stop 08/15/19 at 21:59; Status DC Dexamethasone Sodium Phosphate (Decadron) 4 mg STK-MED ONCE .ROUTE ; Start 08/15/19 at 10:56; Stop 08/15/19 at 10:57; Status DC Ondansetron HCl (Zofran) 4 mg STK-MED ONCE .ROUTE ; Start 08/15/19 at 10:56; Stop 08/15/19 at 10:57; Status DC Rocuronium Glennie (Zemuron) 50 mg STK-MED ONCE .ROUTE ; Start 08/15/19 at 10:56; Stop 08/15/19 at 10:57; Status DC Fentanyl Citrate (Fentanyl 2ml Vial) 100 mcg STK-MED ONCE .ROUTE ; Start 08/15/19 at 10:56; Stop 08/15/19 at 10:57; Status DC Bupivacaine HCl/ Epinephrine Bitart (Sensorcain-Epi 0.5%-1:[id number] Mpf) 30 ml STK-MED ONCE .ROUTE Last administered on 08/15/19at 12:01; Start 08/15/19 at 10:58; Stop 08/15/19 at 10:58; Status DC Cellulose (Surgicel Hemostat 2x14) 1 each STK-MED ONCE .ROUTE ; Start 08/15/19 at 10:58; Stop 08/15/19 at 10:59; Status DC Iohexol (Omnipaque 300 Mg/ml) 50 ml STK-MED ONCE .ROUTE ; Start 08/15/19 at 10: 58; Stop 08/15/19 at 10:59; Status DC Cellulose (Surgicel Hemostat 4x8) 1 each STK-MED ONCE .ROUTE ; Start 08/15/19 at 10:58; Stop 08/15/19 at 10:59; Status DC Bisacodyl (Dulcolax Supp) 10 mg STK-MED ONCE .ROUTE ; Start 08/15/19 at 10:59; Stop 08/15/19 at 10:59; Status DC Heparin Sodium (Porcine) 1000 unit/Sodium Chloride 1,001 ml @ 1,001 mls/hr 1X ONCE IRR ; Start 08/15/19 at 12:00; Stop 08/15/19 at 12:59; Status DC Propofol 20 ml @ As Directed STK-MED ONCE IV ; Start 08/15/19 at 11:05; Stop 08/15/19 at 11:05; Status DC Sevoflurane (Ultane) 90 ml STK-MED ONCE IH ; Start 08/15/19 at 11:05; Stop 08/15/19 at 11:05; Status DC Sevoflurane (Ultane) 60 ml STK-MED ONCE IH ; Start 08/15/19 at 12:26; Stop 08/15/19 at 12:27; Status DC Propofol 20 ml @ As Directed STK-MED ONCE IV ; Start 08/15/19 at 12:26; Stop 08/15/19 at 12:27; Status DC Phenylephrine HCl (PHENYLEPHRINE in 0.9% NACL PF) 1 mg STK-MED ONCE IV ; Start 08/15/19 at 12:34; Stop 08/15/19 at 12:34; Status DC Heparin Sodium (Porcine) (Heparin Sodium) 5,000 unit Q12HR SQ Last administered on 08/24/19at 20:57; Start 08/15/19 at 21:00; Stop 08/25/19 at 09:59; Status DC Sodium Chloride (Normal Saline Flush) 3 ml QSHIFT PRN IV AFTER MEDS AND BLOOD DRAWS; Start 08/15/19 at 13:45; Status Cancel Naloxone HCl (Narcan) 0.4 mg PRN Q2MIN PRN IV SEE INSTRUCTIONS Last administered on 09/24/19at 15:15; Start 08/15/19 at 13:45; Stop 10/19/19 at 16:00; Status DC Sodium Chloride 1,000 ml @ 25 mls/hr Q24H IV Last administered on 09/13/19at 13:37; Start 08/15/19 at 13:37; Stop 09/16/19 at 13:09; Status DC Naloxone HCl (Narcan) 0.4 mg PRN Q2MIN PRN IV SEE INSTRUCTIONS; Start 08/15/19 at 14:30; Status UNV Sodium Chloride 1,000 ml @ 25 mls/hr Q24H IV ; Start 08/15/19 at 14:30; Status UNV Hydromorphone HCl 30 ml @ 0 mls/hr CONT PRN PRN IV PER PROTOCOL Last administered on 08/20/19at 16:08; Start 08/15/19 at 14:30; Stop 08/22/19 at 08:55; Status DC Potassium Acetate 55 meq/Magnesium Sulfate 20 meq/ Calcium Gluconate 10 meq/ Multivitamins 10 ml/Chromium/ Copper/Manganese/ Seleni/Zn 0.5 ml/ Insulin Human Regular 35 unit/ Total Parenteral Nutrition/Amino Acids/Dextrose/ Fat Emulsion Intravenous 1,920 ml @ 80 mls/hr TPN CONT IV Last administered on 08/15/19at 22:01; Start 08/15/19 at 22:00; Stop 08/16/19 at 21:59; Status DC Bumetanide (Bumex) 2 mg [id number] IV Last administered on 08/19/19at 13:50; Start 08/16/19 at 14:00; Stop 08/20/19 at 14:10; Status DC Meropenem 1 gm/ Sodium Chloride 100 ml @ 200 mls/hr Q8HRS IV Last administered on 09/09/19at 05:53; Start 08/16/19 at 14:00; Stop 09/09/19 at 09:31; Status DC Potassium Acetate 55 meq/Magnesium Sulfate 20 meq/ Calcium Gluconate 10 meq/ Multivitamins 10 ml/Chromium/ Copper/Manganese/ Seleni/Zn 0.5 ml/ Insulin Human Regular 35 unit/ Total Parenteral Nutrition/Amino Acids/Dextrose/ Fat Emulsion Intravenous 1,920 ml @ 80 mls/hr TPN CONT IV Last administered on 08/16/19at 22:02; Start 08/16/19 at 22:00; Stop 08/17/19 at 21:59; Status DC Hydromorphone HCl (Dilaudid Standard [employer]) 12 mg STK-MED ONCE IV ; Start 08/15/19 at 14:35; Stop 08/16/19 at 13:53; Status DC Artificial Tears (Artificial Tears) 1 drop PRN Q15MIN PRN OU DRY EYE Last administered on 10/11/19at 21:17; Start 08/17/19 at 05:30 Hydromorphone HCl (Dilaudid Standard [employer]) 12 mg STK-MED ONCE IV ; Start 08/16/19 at 12:05; Stop 08/17/19 at 09:15; Status DC Potassium Acetate 65 meq/Magnesium Sulfate 20 meq/ Calcium Gluconate 10 meq/ Multivitamins 10 ml/Chromium/ Copper/Manganese/ Seleni/Zn 0.5 ml/ Insulin Human Regular 30 unit/ Total Parenteral Nutrition/Amino Acids/Dextrose/ Fat Emulsion Intravenous 1,920 ml @ 80 mls/hr TPN CONT IV Last administered on 08/17/19at 22:22; Start 08/17/19 at 22:00; Stop 08/18/19 at 21:59; Status DC Cyclobenzaprine HCl (Flexeril) 10 mg PRN Q6HRS PRN PO MUSCLE SPASMS; Start 08/18/19 at 10:45 Potassium Acetate 55 meq/Magnesium Sulfate 20 meq/ Calcium Gluconate 10 meq/ Multivitamins 10 ml/Chromium/ Copper/Manganese/ Seleni/Zn 0.5 ml/ Insulin Human Regular 30 unit/ Total Parenteral Nutrition/Amino Acids/Dextrose/ Fat Emulsion Intravenous 1,920 ml @ 80 mls/hr TPN CONT IV Last administered on 08/19/19at 01:00; Start 08/18/19 at 22:00; Stop 08/19/19 at 21:59; Status DC Magnesium Sulfate 50 ml @ 25 mls/hr 1X ONCE IV Last administered on 08/18/19at 17:18; Start 08/18/19 at 12:45; Stop 08/18/19 at 14:44; Status DC Potassium Chloride/Water 100 ml @ 100 mls/hr 1X ONCE IV Last administered on 08/19/19at 11:27; Start 08/19/19 at 12:00; Stop 08/19/19 at 12:59; Status DC Hydromorphone HCl (Dilaudid Standard [employer]) 12 mg STK-MED ONCE IV ; Start 08/17/19 at 10:50; Stop 08/19/19 at 11:02; Status DC Hydromorphone HCl (Dilaudid Standard [employer]) 12 mg STK-MED ONCE IV ; Start 08/18/19 at 13:47; Stop 08/19/19 at 11:03; Status DC Potassium Acetate 30 meq/Magnesium Sulfate 20 meq/ Calcium Gluconate 10 meq/ Multivitamins 10 ml/Chromium/ Copper/Manganese/ Seleni/Zn 0.5 ml/ Insulin Human Regular 30 unit/ Potassium Chloride 30 meq/ Total Parenteral Nutrition/Amino Acids/Dextrose/ Fat Emulsion Intravenous 1,920 ml @ 80 mls/hr TPN CONT IV Last administered on 08/19/19at 22:34; Start 08/19/19 at 22:00; Stop 08/20/19 at 21:59; Status DC Potassium Chloride/Water 100 ml @ 100 mls/hr Q1H IV Last administered on 08/20/19at 13:05; Start 08/20/19 at 07:00; Stop 08/20/19 at 10:59; Status DC Magnesium Sulfate 50 ml @ 25 mls/hr 1X ONCE IV Last administered on 08/20/19at 10:34; Start 08/20/19 at 10:30; Stop 08/20/19 at 12:29; Status DC Potassium Chloride 75 meq/ Magnesium Sulfate 20 meq/Calcium Gluconate 10 meq/ Multivitamins 10 ml/Chromium/ Copper/Manganese/ Seleni/Zn 0.5 ml/ Insulin Human Regular 30 unit/ Total Parenteral Nutrition/Amino Acids/Dextrose/ Fat Emulsion Intravenous 1,920 ml @ 80 mls/hr TPN CONT IV Last administered on 08/20/19at 21:51; Start 08/20/19 at 22:00; Stop 08/21/19 at 22:00; Status DC Potassium Chloride 75 meq/ Magnesium Sulfate 20 meq/Calcium Gluconate 10 meq/ Multivitamins 10 ml/Chromium/ Copper/Manganese/ Seleni/Zn 0.5 ml/ Insulin Human Regular 25 unit/ Total Parenteral Nutrition/Amino Acids/Dextrose/ Fat Emulsion Intravenous 1,920 ml @ 80 mls/hr TPN CONT IV Last administered on 08/21/19at 22:04; Start 08/21/19 at 22:00; Stop 08/22/19 at 21:59; Status DC Hydromorphone HCl (Dilaudid) 0.4 mg PRN Q4HRS PRN IVP PAIN Last administered on 08/22/19at 10:57; Start 08/22/19 at 09:00; Stop 08/22/19 at 18:59; Status DC Micafungin Sodium 100 mg/Dextrose 100 ml @ 100 mls/hr Q24H IV Last administered on 09/13/19at 12:17; Start 08/22/19 at 11:00; Stop 09/14/19 at 09:59; Status DC Daptomycin 485 mg/ Sodium Chloride 50 ml @ 100 mls/hr Q24H IV Last administered on 08/29/19at 13:10; Start 08/22/19 at 11:00; Stop 08/30/19 at 07:44; Status DC Potassium Chloride 75 meq/ Magnesium Sulfate 15 meq/Calcium Gluconate 8 meq/ Mul tivitamins 10 ml/Chromium/ Copper/Manganese/ Seleni/Zn 0.5 ml/ Insulin Human Regular 25 unit/ Total Parenteral Nutrition/Amino Acids/Dextrose/ Fat Emulsion Intravenous 1,920 ml @ 80 mls/hr TPN CONT IV Last administered on 08/22/19at 23:08; Start 08/22/19 at 22:00; Stop 08/23/19 at 21:59; Status DC Haloperidol Lactate (Haldol Inj) 3 mg 1X ONCE IVP Last administered on 08/22/19at 14:37; Start 08/22/19 at 14:30; Stop 08/22/19 at 14:31; Status DC Hydromorphone HCl (Dilaudid) 1 mg PRN Q4HRS PRN IVP PAIN Last administered on 09/05/19at 06:25; Start 08/22/19 at 19:00; Stop 09/05/19 at 17:10; Status DC Potassium Chloride 75 meq/ Magnesium Sulfate 15 meq/Calcium Gluconate 8 meq/ Multivitamins 10 ml/Chromium/ Copper/Manganese/ Seleni/Zn 0.5 ml/ Insulin Human Regular 20 unit/ Total Parenteral Nutrition/Amino Acids/Dextrose/ Fat Emulsion Intravenous 1,920 ml @ 80 mls/hr TPN CONT IV Last administered on 08/23/19at 22:10; Start 08/23/19 at 22:00; Stop 08/24/19 at 21:59; Status DC Lidocaine HCl (Buffered Lidocaine 1%) 3 ml STK-MED ONCE .ROUTE ; Start 08/24/19 at 11:31; Stop 08/24/19 at 11:31; Status DC Lidocaine HCl (Buffered Lidocaine 1%) 3 ml STK-MED ONCE .ROUTE ; Start 08/24/19 at 12:28; Stop 08/24/19 at 12:29; Status DC Lidocaine HCl (Buffered Lidocaine 1%) 6 ml 1X ONCE INJ Last administered on 08/24/19at 12:53; Start 08/24/19 at 12:45; Stop 08/24/19 at 12:46; Status DC Potassium Chloride 75 meq/ Magnesium Sulfate 15 meq/Calcium Gluconate 8 meq/ Multivitamins 10 ml/Chromium/ Copper/Manganese/ Seleni/Zn 0.5 ml/ Insulin Human Regular 20 unit/ Total Parenteral Nutrition/Amino Acids/Dextrose/ Fat Emulsion Intravenous 1,920 ml @ 80 mls/hr TPN CONT IV Last administered on 08/24/19at 22:00; Start 08/24/19 at 22:00; Stop 08/25/19 at 21:59; Status DC Potassium Chloride 75 meq/ Magnesium Sulfate 15 meq/Calcium Gluconate 8 meq/ Multivitamins 10 ml/Chromium/ Copper/Manganese/ Seleni/Zn 0.5 ml/ Insulin Human Regular 15 unit/ Total Parenteral Nutrition/Amino Acids/Dextrose/ Fat Emulsion Intravenous 1,920 ml @ 80 mls/hr TPN CONT IV Last administered on 08/25/19at 22:28; Start 08/25/19 at 22:00; Stop 08/26/19 at 21:59; Status DC Vecuronium Glennie (Norcuron Bolus) 6 mg PRN Q6HRS PRN IV VENT ASYNCHRONY; Start 08/25/19 at 19:15; Stop 08/25/19 at 19:35; Status DC Bumetanide (Bumex) 2 mg 1X ONCE IV Last administered on 08/25/19at 22:09; Start 08/25/19 at 19:45; Stop 08/25/19 at 19:46; Status DC Lidocaine HCl (Buffered Lidocaine 1%) 3 ml STK-MED ONCE .ROUTE ; Start 08/26/19 at 07:59; Stop 08/26/19 at 07:59; Status DC Midazolam HCl (Versed) 5 mg STK-MED ONCE .ROUTE ; Start 08/26/19 at 08:36; Stop 08/26/19 at 08:36; Status DC Fentanyl Citrate (Fentanyl 5ml Vial) 250 mcg STK-MED ONCE .ROUTE ; Start 08/26/19 at 08:36; Stop 08/26/19 at 08:37; Status DC Lidocaine HCl (Buffered Lidocaine 1%) 3 ml 1X ONCE IJ Last administered on 08/26/19at 09:30; Start 08/26/19 at 09:15; Stop 08/26/19 at 09:16; Status DC Midazolam HCl (Versed) 5 mg 1X ONCE IV Last administered on 08/26/19at 09:30; Start 08/26/19 at 09:15; Stop 08/26/19 at 09:16; Status DC Fentanyl Citrate (Fentanyl 5ml Vial) 250 mcg 1X ONCE IV Last administered on 08/26/19at 09:30; Start 08/26/19 at 09:15; Stop 08/26/19 at 09:16; Status DC Bumetanide (Bumex) 2 mg DAILY IV Last administered on 09/05/19at 08:07; Start 08/26/19 at 10:00; Stop 09/05/19 at 17:15; Status DC Potassium Chloride 75 meq/ Magnesium Sulfate 15 meq/ Multivitamins 10 ml/Chromium/ Copper/Manganese/ Seleni/Zn 0.5 ml/ Insulin Human Regular 15 unit/ Total Parenteral Nutrition/Amino Acids/Dextrose/ Fat Emulsion Intravenous 1,920 ml @ 80 mls/hr TPN CONT IV Last administered on 08/26/19at 21:59; Start 08/26/19 at 22:00; Stop 08/27/19 at 21:59; Status DC Metoclopramide HCl (Reglan Vial) 10 mg PRN Q3HRS PRN IVP NAUSEA/VOMITING-3rd choice Last administered on 09/01/19at 04:25; Start 08/27/19 at 16:45 Potassium Chloride 75 meq/ Magnesium Sulfate 15 meq/ Multivitamins 10 ml/Chromium/ Copper/Manganese/ Seleni/Zn 0.5 ml/ Insulin Human Regular 15 unit/ Total Parenteral Nutrition/Amino Acids/Dextrose/ Fat Emulsion Intravenous 1,920 ml @ 80 mls/hr TPN CONT IV Last administered on 08/27/19at 22:41; Start 08/27/19 at 22:00; Stop 08/28/19 at 21:59; Status DC Magnesium Sulfate 50 ml @ 25 mls/hr 1X ONCE IV Last administered on 08/28/19at 10:44; Start 08/28/19 at 09:00; Stop 08/28/19 at 10:59; Status DC Potassium Chloride/Water 100 ml @ 100 mls/hr 1X ONCE IV Last administered on 08/28/19at 09:37; Start 08/28/19 at 09:00; Stop 08/28/19 at 09:59; Status DC Duloxetine HCl (Cymbalta) 30 mg DAILY PO Last administered on 08/29/19at 09:48; Start 08/28/19 at 14:00; Stop 08/31/19 at 10:25; Status DC Potassium Chloride 80 meq/ Magnesium Sulfate 20 meq/ Multivitamins 10 ml/Chromium/ Copper/Manganese/ Seleni/Zn 0.5 ml/ Insulin Human Regular 15 unit/ Total Parenteral Nutrition/Amino Acids/Dextrose/ Fat Emulsion Intravenous 1,920 ml @ 80 mls/hr TPN CONT IV Last administered on 08/28/19at 21:42; Start 08/28/19 at 22:00; Stop 08/29/19 at 21:59; Status DC Potassium Chloride 80 meq/ Magnesium Sulfate 20 meq/ Multivitamins 10 ml/Chromium/ Copper/Manganese/ Seleni/Zn 0.5 ml/ Insulin Human Regular 15 unit/ Total Parenteral Nutrition/Amino Acids/Dextrose/ Fat Emulsion Intravenous 1,920 ml @ 80 mls/hr TPN CONT IV Last administered on 08/29/19at 22:20; Start 08/29/19 at 22:00; Stop 08/30/19 at 21:59; Status DC Lidocaine HCl (Buffered Lidocaine 1%) 3 ml STK-MED ONCE .ROUTE ; Start 08/30/19 at 09:54; Stop 08/30/19 at 09:55; Status DC Hydromorphone HCl (Dilaudid Standard [employer]) 12 mg STK-MED ONCE IV ; Start 08/19/19 at 15:50; Stop 08/30/19 at 11:24; Status DC Potassium Chloride 80 meq/ Magnesium Sulfate 20 meq/ Multivitamins 10 ml/Chromium/ Copper/Manganese/ Seleni/Zn 0.5 ml/ Insulin Human Regular 15 unit/ Total Parenteral Nutrition/Amino Acids/Dextrose/ Fat Emulsion Intravenous 1,920 ml @ 80 mls/hr TPN CONT IV Last administered on 08/30/19at 21:40; Start 08/30/19 at 22:00; Stop 08/31/19 at 21:59; Status DC Lidocaine HCl (Buffered Lidocaine 1%) 6 ml 1X ONCE INJ Last administered on 08/30/19at 14:15; Start 08/30/19 at 14:15; Stop 08/30/19 at 14:16; Status DC Potassium Chloride 80 meq/ Magnesium Sulfate 20 meq/ Multivitamins 10 ml/Chromium/ Copper/Manganese/ Seleni/Zn 1 ml/ Insulin Human Regular 15 unit/ Total Parenteral Nutrition/Amino Acids/Dextrose/ Fat Emulsion Intravenous 1,920 ml @ 80 mls/hr TPN CONT IV Last administered on 08/31/19at 22:04; Start 08/31/19 at 22:00; Stop 09/01/19 at 21:59; Status DC Potassium Chloride/Water 100 ml @ 100 mls/hr 1X ONCE IV Last administered on 09/01/19at 11:34; Start 09/01/19 at 11:00; Stop 09/01/19 at 11:59; Status DC Potassium Chloride 90 meq/ Magnesium Sulfate 20 meq/ Multivitamins 10 ml/Chromium/ Copper/Manganese/ Seleni/Zn 1 ml/ Insulin Human Regular 15 unit/ Total Parenteral Nutrition/Amino Acids/Dextrose/ Fat Emulsion Intravenous 1,920 ml @ 80 mls/hr TPN CONT IV Last administered on 09/01/19at 22:57; Start 09/01/19 at 22:00; Stop 09/02/19 at 21:59; Status DC Potassium Chloride 90 meq/ Magnesium Sulfate 20 meq/ Multivitamins 10 ml/Chromium/ Copper/Manganese/ Seleni/Zn 1 ml/ Insulin Human Regular 15 unit/ Total Parenteral Nutrition/Amino Acids/Dextrose/ Fat Emulsion Intravenous 1,920 ml @ 80 mls/hr TPN CONT IV Last administered on 09/02/19at 22:48; Start 09/02/19 at 22:00; Stop 09/03/19 at 21:59; Status DC Potassium Chloride 90 meq/ Magnesium Sulfate 20 meq/ Multivitamins 10 ml/Chromium/ Copper/Manganese/ Seleni/Zn 1 ml/ Insulin Human Regular 15 unit/ Total Parenteral Nutrition/Amino Acids/Dextrose/ Fat Emulsion Intravenous 1,890 ml @ 78.75 mls/ hr TPN CONT IV Last administered on 09/03/19at 22:15; Start 09/03/19 at 22:00; Stop 09/04/19 at 21:59; Status DC Linezolid/Dextrose 300 ml @ 300 mls/hr Q12HR IV Last administered on 09/06/19at 21:08; Start 09/04/19 at 09:00; Stop 09/07/19 at 08:11; Status DC Daptomycin 450 mg/ Sodium Chloride 50 ml @ 100 mls/hr Q24H IV Last administered on 09/07/19at 09:25; Start 09/04/19 at 09:00; Stop 09/08/19 at 08:30; Status DC Potassium Chloride 90 meq/ Magnesium Sulfate 20 meq/ Multivitamins 10 ml/Chromium/ Copper/Manganese/ Seleni/Zn 1 ml/ Insulin Human Regular 15 unit/ Total Parenteral Nutrition/Amino Acids/Dextrose/ Fat Emulsion Intravenous 1,890 ml @ 78.75 mls/ hr TPN CONT IV Last administered on 09/04/19at 21:34; Start 09/04/19 at 22:00; Stop 09/05/19 at 21:59; Status DC Lorazepam (Ativan Inj) 2 mg STK-MED ONCE .ROUTE ; Start 09/04/19 at 14:58; Stop 09/04/19 at 14:58; Status DC Metoprolol Tartrate (Lopressor Vial) 5 mg 1X ONCE IVP Last administered on 09/04/19at 15:31; Start 09/04/19 at 15:15; Stop 09/04/19 at 15:16; Status DC Lorazepam (Ativan Inj) 2 mg 1X ONCE IVP Last administered on 09/04/19at 15:30; Start 09/04/19 at 15:15; Stop 09/04/19 at 15:16; Status DC Enoxaparin Sodium (Lovenox 40mg Syringe) 40 mg Q24H SQ Last administered on 09/23/19at 17:44; Start 09/04/19 at 17:00; Stop 09/25/19 at 06:50; Status DC Lorazepam (Ativan Inj) 1 mg PRN Q4HRS PRN IVP ANXIETY / AGITATION MILD-MOD Last administered on 09/18/19at 15:55; Start 09/04/19 at 19:15; Stop 09/20/19 at 11:45; Status DC Lorazepam (Ativan Inj) 2 mg PRN Q4HRS PRN IVP ANXIETY / AGITATION SEVERE Last administered on 09/19/19at 07:55; Start 09/04/19 at 19:15; Stop 09/20/19 at 11:45; Status DC Fentanyl Citrate (Fentanyl 2ml Vial) 50 mcg PRN Q4HRS PRN IVP SEVERE PAIN Last administered on 10/01/19at 05:15; Start 09/05/19 at 13:15; Stop 10/02/19 at 09:29; Status DC Fentanyl Citrate (Fentanyl 2ml Vial) 25 mcg PRN Q4HRS PRN IVP MODERATE PAIN Last administered on 10/01/19at 00:27; Start 09/05/19 at 13:15; Stop 10/02/19 at 09:30; Status DC Potassium Chloride 90 meq/ Magnesium Sulfate 20 meq/ Multivitamins 10 ml/Chromium/ Copper/Manganese/ Seleni/Zn 1 ml/ Insulin Human Regular 15 unit/ Total Parenteral Nutrition/Amino Acids/Dextrose/ Fat Emulsion Intravenous 1,890 ml @ 78.75 mls/ hr TPN CONT IV Last administered on 09/05/19at 22:18; Start 09/05/19 at 22:00; Stop 09/06/19 at 21:59; Status DC Furosemide (Lasix) 40 mg 1X ONCE IVP Last administered on 09/05/19at 21:51; Start 09/05/19 at 21:45; Stop 09/05/19 at 21:48; Status DC Albumin Human 100 ml @ 100 mls/hr 1X PRN PRN IV SEE COMMENTS; Start 09/06/19 at 01:30 Furosemide (Lasix) 40 mg [id number] IVP Last administered on 09/21/19at 08:04; Start 09/06/19 at 14:00; Stop 09/21/19 at 13:07; Status DC Potassium Chloride 90 meq/ Magnesium Sulfate 20 meq/ Multivitamins 10 ml/Chromium/ Copper/Manganese/ Seleni/Zn 1 ml/ Insulin Human Regular 15 unit/ Total Parenteral Nutrition/Amino Acids/Dextrose/ Fat Emulsion Intravenous 1,800 ml @ 75 mls/hr TPN CONT IV Last administered on 09/06/19at 22:31; Start 09/06/19 at 22:00; Stop 09/07/19 at 21:59; Status DC Potassium Chloride 90 meq/ Magnesium Sulfate 20 meq/ Multivitamins 10 ml/Chromium/ Copper/Manganese/ Seleni/Zn 1 ml/ Insulin Human Regular 15 unit/ Total Parenteral Nutrition/Amino Acids/Dextrose/ Fat Emulsion Intravenous 1,800 ml @ 75 mls/hr TPN CONT IV Last administered on 09/07/19at 22:28; Start 09/07/19 at 22:00; Stop 09/08/19 at 21:59; Status DC Potassium Chloride 110 meq/ Magnesium Sulfate 20 meq/ Multivitamins 10 ml/Chromium/ Copper/Manganese/ Seleni/Zn 1 ml/ Insulin Human Regular 15 unit/ Total Parenteral Nutrition/Amino Acids/Dextrose/ Fat Emulsion Intravenous 1,800 ml @ 75 mls/hr TPN CONT IV Last administered on 09/08/19at 22:01; Start 09/08/19 at 22:00; Stop 09/09/19 at 21:59; Status DC Saliva Substitute (Biotene Moisturizing Mouth) 2 spray PRN Q15MIN PRN PO DRY MOUTH; Start 09/08/19 at 11:00 Potassium Chloride 110 meq/ Magnesium Sulfate 20 meq/ Multivitamins 10 ml/Chromium/ Copper/Manganese/ Seleni/Zn 1 ml/ Insulin Human Regular 15 unit/ Total Parenteral Nutrition/Amino Acids/Dextrose/ Fat Emulsion Intravenous 1,800 ml @ 75 mls/hr TPN CONT IV Last administered on 09/09/19at 22:21; Start 09/09/19 at 22:00; Stop 09/10/19 at 21:59; Status DC Potassium Chloride 110 meq/ Magnesium Sulfate 20 meq/ Multivitamins 10 ml/Chromium/ Copper/Manganese/ Seleni/Zn 1 ml/ Insulin Human Regular 15 unit/ Total Parenteral Nutrition/Amino Acids/Dextrose/ Fat Emulsion Intravenous 1,800 ml @ 75 mls/hr TPN CONT IV Last administered on 09/10/19at 22:04; Start 09/10/19 at 22:00; Stop 09/11/19 at 21:59; Status DC Potassium Chloride 110 meq/ Magnesium Sulfate 20 meq/ Multivitamins 10 ml/Chromium/ Copper/Manganese/ Seleni/Zn 1 ml/ Insulin Human Regular 15 unit/ Total Parenteral Nutrition/Amino Acids/Dextrose/ Fat Emulsion Intravenous 1,800 ml @ 75 mls/hr TPN CONT IV Last administered on 09/11/19at 22:48; Start 09/11/19 at 22:00; Stop 09/12/19 at 21:59; Status DC Potassium Chloride 70 meq/ Magnesium Sulfate 20 meq/ Multivitamins 10 ml/Chromium/ Copper/Manganese/ Seleni/Zn 1 ml/ Insulin Human Regular 15 unit/ Total Parenteral Nutrition/Amino Acids/Dextrose/ Fat Emulsion Intravenous 1,800 ml @ 75 mls/hr TPN CONT IV Last administered on 09/12/19at 21:39; Start 09/12/19 at 22:00; Stop 09/13/19 at 21:59; Status DC Meropenem 500 mg/ Sodium Chloride 50 ml @ 100 mls/hr Q6HRS IV Last administered on 09/14/19at 06:02; Start 09/12/19 at 18:00; Stop 09/14/19 at 09:59; Status DC Barium Sulfate (Varibar Thin Liquid Apple) 148 gm 1X ONCE PO ; Start 09/13/19 at 11:45; Stop 09/13/19 at 11:49; Status DC Potassium Chloride 70 meq/ Magnesium Sulfate 20 meq/ Multivitamins 10 ml/Chromium/ Copper/Manganese/ Seleni/Zn 1 ml/ Insulin Human Regular 15 unit/ Total Parenteral Nutrition/Amino Acids/Dextrose/ Fat Emulsion Intravenous 1,800 ml @ 75 mls/hr TPN CONT IV Last administered on 09/13/19at 22:27; Start 09/13/19 at 22:00; Stop 09/14/19 at 21:59; Status DC Piperacillin Sod/ Tazobactam Sod 3.375 gm/Sodium Chloride 50 ml @ 100 mls/hr Q6HRS IV Last administered on 09/22/19at 06:10; Start 09/14/19 at 12:00; Stop 09/22/19 at 07:26; Status DC Potassium Chloride 70 meq/ Magnesium Sulfate 20 meq/ Multivitamins 10 ml/Chromium/ Copper/Manganese/ Seleni/Zn 1 ml/ Insulin Human Regular 15 unit/ Total Parenteral Nutrition/Amino Acids/Dextrose/ Fat Emulsion Intravenous 1,800 ml @ 75 mls/hr TPN CONT IV Last administered on 09/14/19at 22:03; Start 09/14/19 at 22:00; Stop 09/15/19 at 21:59; Status DC Potassium Chloride 70 meq/ Magnesium Sulfate 20 meq/ Multivitamins 10 ml/Chromium/ Copper/Manganese/ Seleni/Zn 1 ml/ Insulin Human Regular 15 unit/ Total Parenteral Nutrition/Amino Acids/Dextrose/ Fat Emulsion Intravenous 1,800 ml @ 75 mls/hr TPN CONT IV Last administered on 09/15/19at 22:33; Start 09/15/19 at 22:00; Stop 09/16/19 at 21:59; Status DC Potassium Chloride 70 meq/ Magnesium Sulfate 20 meq/ Multivitamins 10 ml/Chromium/ Copper/Manganese/ Seleni/Zn 1 ml/ Insulin Human Regular 15 unit/ Total Parenteral Nutrition/Amino Acids/Dextrose/ Fat Emulsion Intravenous 1,800 ml @ 75 mls/hr TPN CONT IV Last administered on 09/16/19at 23:13; Start 09/16/19 at 22:00; Stop 09/17/19 at 21:59; Status DC Potassium Chloride 80 meq/ Magnesium Sulfate 20 meq/ Multivitamins 10 ml/Chromium/ Copper/Manganese/ Seleni/Zn 1 ml/ Insulin Human Regular 15 unit/ T otal Parenteral Nutrition/Amino Acids/Dextrose/ Fat Emulsion Intravenous 1,800 ml @ 75 mls/hr TPN CONT IV Last administered on 09/17/19at 22:30; Start 09/17/19 at 22:00; Stop 09/18/19 at 21:59; Status DC Potassium Chloride 80 meq/ Magnesium Sulfate 20 meq/ Multivitamins 10 ml/Chromium/ Copper/Manganese/ Seleni/Zn 1 ml/ Insulin Human Regular 15 unit/ Total Parenteral Nutrition/Amino Acids/Dextrose/ Fat Emulsion Intravenous 1,800 ml @ 75 mls/hr TPN CONT IV Last administered on 09/18/19at 21:54; Start at 22:00; Stop 09/19/19 at 21:59; Status DC Potassium Chloride/Water 100 ml @ 100 mls/hr 1X ONCE IV Last administered on 09/19/19at 10:15; Start 09/19/19 at 10:00; Stop 09/19/19 at 10:59; Status DC Potassium Chloride 90 meq/ Magnesium Sulfate 20 meq/ Multivitamins 10 ml/Chromium/ Copper/Manganese/ Seleni/Zn 1 ml/ Insulin Human Regular 20 unit/ Total Parenteral Nutrition/Amino Acids/Dextrose/ Fat Emulsion Intravenous 1,800 ml @ 75 mls/hr TPN CONT IV Last administered on 09/19/19at 22:28; Start 09/19/19 at 22:00; Stop 09/20/19 at 21:59; Status DC Potassium Chloride 90 meq/ Magnesium Sulfate 20 meq/ Multivitamins 10 ml/Chromium/ Copper/Manganese/ Seleni/Zn 1 ml/ Insulin Human Regular 20 unit/ Total Parenteral Nutrition/Amino Acids/Dextrose/ Fat Emulsion Intravenous 1,800 ml @ 75 mls/hr TPN CONT IV Last administered on 09/20/19at 22:08; Start 09/20/19 at 22:00; Stop 09/21/19 at 21:59; Status DC Lorazepam (Ativan Inj) 0.25 mg PRN Q4HRS PRN IVP ANXIETY / AGITATION Last administered on 10/15/19at 13:37; Start 09/21/19 at 07:30 Potassium Chloride 90 meq/ Magnesium Sulfate 20 meq/ Multivitamins 10 ml/Chromium/ Copper/Manganese/ Seleni/Zn 1 ml/ Insulin Human Regular 20 unit/ Total Parenteral Nutrition/Amino Acids/Dextrose/ Fat Emulsion Intravenous 1,800 ml @ 75 mls/hr TPN CONT IV Last administered on 09/21/19at 23:13; Start 09/21/19 at 22:00; Stop 09/22/19 at 21:59; Status DC Furosemide (Lasix) 40 mg DAILY IVP Last administered on 09/23/19at 11:14; Start 09/21/19 at 13:30; Stop 09/25/19 at 09:12; Status DC Fluoxetine HCl (PROzac) 20 mg QHS PEG Last administered on 10/19/19at 23:04; Start 09/22/19 at 21:00 Fentanyl (Duragesic 50mcg/ Hr Patch) 1 patch Q72H TD Last administered on 09/22/19at 21:22; Start 09/22/19 at 21:00; Stop 10/01/19 at 12:00; Status DC Potassium Chloride 40 meq/ Potassium Acetate 60 meq/Magnesium Sulfate 10 meq/ Multivitamins 10 ml/Chromium/ Copper/Manganese/ Seleni/Zn 1 ml/ Insulin Human Regular 20 unit/ Total Parenteral Nutrition/Amino Acids/Dextrose/ Fat Emulsion Intravenous 1,800 ml @ 75 mls/hr TPN CONT IV Last administered on 09/23/19at 00:03; Start 09/22/19 at 22:00; Stop 09/23/19 at 21:59; Status DC Potassium Acetate 80 meq/Magnesium Sulfate 5 meq/ Multivitamins 10 ml/Chromium/ Copper/Manganese/ Seleni/Zn 1 ml/ Insulin Human Regular 20 unit/ Total P arenteral Nutrition/Amino Acids/Dextrose/ Fat Emulsion Intravenous 1,920 ml @ 80 mls/hr TPN CONT IV Last administered on 09/23/19at 21:59; Start 09/23/19 at 22:00; Stop 09/24/19 at 21:59; Status DC Potassium Acetate 60 meq/Magnesium Sulfate 5 meq/ Multivitamins 10 ml/Chromium/ Copper/Manganese/ Seleni/Zn 1 ml/ Insulin Human Regular 30 unit/ Total Parenteral Nutrition/Amino Acids/Dextrose/ Fat Emulsion Intravenous 1,920 ml @ 80 mls/hr TPN CONT IV Last administered on 09/24/19at 21:54; Start 09/24/19 at 22:00; Stop 09/25/19 at 21:59; Status DC Norepinephrine Bitartrate 8 mg/ Dextrose 258 ml @ 13.332 mls/ hr CONT PRN IV PER PROTOCOL Last administered on 10/20/19at 09:09; Start 09/25/19 at 06:30 Albumin Human 500 ml @ 125 mls/hr 1X ONCE IV Last administered on 09/25/19at 08:10; Start 09/25/19 at 08:15; Stop 09/25/19 at 12:14; Status DC Potassium Acetate 40 meq/Magnesium Sulfate 5 meq/ Multivitamins 10 ml/Chromium/ Copper/Manganese/ Seleni/Zn 1 ml/ Insulin Human Regular 30 unit/ Total Parenteral Nutrition/Amino Acids/Dextrose/ Fat Emulsion Intravenous 1,920 ml @ 80 mls/hr TPN CONT IV Last administered on 09/25/19at 22:23; Start 09/25/19 at 22:00; Stop 09/26/19 at 21:59; Status DC Meropenem 1 gm/ Sodium Chloride 100 ml @ 200 mls/hr Q8HRS IV ; Start 09/25/19 at 14:00; Status Cancel Meropenem 1 gm/ Sodium Chloride 100 ml @ 200 mls/hr Q8HRS IV Last administered on 09/25/19at 11:04; Start 09/25/19 at 10:00; Stop 09/25/19 at 13:00; Status DC Meropenem 1 gm/ Sodium Chloride 100 ml @ 200 mls/hr Q12HR IV Last administered on 10/13/19at 08:27; Start 09/25/19 at 21:00; Stop 10/13/19 at 08:56; Status DC Sodium Chloride 1,000 ml @ 1,000 mls/hr 1X ONCE IV Last administered on 09/25/19at 11:06; Start 09/25/19 at 10:45; Stop 09/25/19 at 11:44; Status DC Micafungin Sodium 100 mg/Dextrose 100 ml @ 100 mls/hr Q24H IV Last administered on 10/12/19at 12:34; Start 09/25/19 at 11:00; Stop 10/13/19 at 08:56; Status DC Daptomycin 410 mg/ Sodium Chloride 50 ml @ 100 mls/hr Q24H IV Last administered on 09/27/19at 13:33; Start 09/25/19 at 14:00; Stop 09/28/19 at 08:30; Status DC Midazolam HCl (Versed) 2 mg STK-MED ONCE .ROUTE ; Start 09/25/19 at 14:47; Stop 09/25/19 at 14:48; Status DC Fentanyl Citrate (Fentanyl 2ml Vial) 100 mcg STK-MED ONCE .ROUTE ; Start 09/25/19 at 14:47; Stop 09/25/19 at 14:48; Status DC Flumazenil (Romazicon) 0.5 mg STK-MED ONCE IV ; Start 09/25/19 at 14:48; Stop 09/25/19 at 14:48; Status DC Naloxone HCl (Narcan) 0.4 mg STK-MED ONCE .ROUTE ; Start 09/25/19 at 14:48; Stop 09/25/19 at 14:48; Status DC Lidocaine HCl (Lidocaine 1% 20ml Vial) 20 ml STK-MED ONCE .ROUTE ; Start 09/25/19 at 14:48; Stop 09/25/19 at 14:48; Status DC Midazolam HCl (Versed) 2 mg 1X ONCE IV Last administered on 09/25/19at 15:28; Start 09/25/19 at 15:00; Stop 09/25/19 at 15:01; Status DC Fentanyl Citrate (Fentanyl 2ml Vial) 100 mcg 1X ONCE IV Last administered on 09/25/19at 15:28; Start 09/25/19 at 15:00; Stop 09/25/19 at 15:01; Status DC Lidocaine HCl (Lidocaine 1% 20ml Vial) 20 ml 1X ONCE INJ Last administered on 09/25/19at 15:30; Start 09/25/19 at 15:00; Stop 09/25/19 at 15:01; Status DC Sodium Chloride 1,000 ml @ 100 mls/hr Q10H IV Last administered on 10/04/19at 07:30; Start 09/25/19 at 20:00; Stop 10/04/19 at 11:26; Status DC Sodium Bicarbonate (Sodium Bicarb Adult 8.4% Syr) 50 meq 1X ONCE IV Last administered on 09/25/19at 21:47; Start 09/25/19 at 22:00; Stop 09/25/19 at 22:01; Status DC Potassium Acetate 40 meq/Magnesium Sulfate 5 meq/ Multivitamins 10 ml/Chromium/ Copper/Manganese/ Seleni/Zn 1 ml/ Insulin Human Regular 30 unit/ Total Parenteral Nutrition/Amino Acids/Dextrose/ Fat Emulsion Intravenous 1,920 ml @ 80 mls/hr TPN CONT IV Last administered on 09/26/19at 22:28; Start 09/26/19 at 22:00; Stop 09/27/19 at 21:59; Status DC Sodium Chloride 500 ml @ 500 mls/hr 1X ONCE IV Last administered on 09/27/19at 06:39; Start 09/27/19 at 06:45; Stop 09/27/19 at 07:44; Status DC Potassium Acetate 40 meq/Magnesium Sulfate 5 meq/ Multivitamins 10 ml/Chromium/ Copper/Manganese/ Seleni/Zn 1 ml/ Insulin Human Regular 30 unit/ Total Parenteral Nutrition/Amino Acids/Dextrose/ Fat Emulsion Intravenous 1,920 ml @ 80 mls/hr TPN CONT IV Last administered on 09/27/19at 22:03; Start 09/27/19 at 22:00; Stop 09/28/19 at 21:59; Status DC Metoprolol Tartrate (Lopressor Vial) 5 mg PRN Q6HRS PRN IVP HYPERTENSION Last administered on 10/06/19at 10:14; Start 09/28/19 at 09:00 Potassium Acetate 40 meq/Magnesium Sulfate 5 meq/ Multivitamins 10 ml/Chromium/ Copper/Manganese/ Seleni/Zn 1 ml/ Insulin Human Regular 30 unit/ Total Parenteral Nutrition/Amino Acids/Dextrose/ Fat Emulsion Intravenous 1,920 ml @ 80 mls/hr TPN CONT IV Last administered on 09/28/19at 21:26; Start 09/28/19 at 22:00; Stop 09/29/19 at 21:59; Status DC Potassium Acetate 40 meq/Magnesium Sulfate 5 meq/ Multivitamins 10 ml/Chromium/ Copper/Manganese/ Seleni/Zn 1 ml/ Insulin Human Regular 30 unit/ Total Parenteral Nutrition/Amino Acids/Dextrose/ Fat Emulsion Intravenous 1,920 ml @ 80 mls/hr TPN CONT IV Last administered on 09/29/19at 23:23; Start 09/29/19 at 22:00; Stop 09/30/19 at 21:59; Status DC Potassium Acetate 40 meq/Magnesium Sulfate 5 meq/ Multivitamins 10 ml/Chromium/ Copper/Manganese/ Seleni/Zn 1 ml/ Insulin Human Regular 30 unit/ Total Parenteral Nutrition/Amino Acids/Dextrose/ Fat Emulsion Intravenous 1,920 ml @ 80 mls/hr TPN CONT IV Last administered on 09/30/19at 21:35; Start 09/30/19 at 22:00; Stop 10/01/19 at 21:59; Status DC Furosemide (Lasix) 20 mg 1X ONCE IVP Last administered on 10/01/19at 06:26; Start 10/01/19 at 06:15; Stop 10/01/19 at 06:16; Status DC Methylprednisolone Sodium Succinate (SOLU-Medrol 125MG VIAL) 125 mg 1X ONCE IV Last administered on 10/01/19at 06:26; Start 10/01/19 at 06:15; Stop 10/01/19 at 06:16; Status DC Albuterol/ Ipratropium (Duoneb) 3 ml Q4HRS NEB Last administered on 10/20/19at 11:35; Start 10/01/19 at 08:00 Fentanyl Citrate 30 ml @ 0 mls/hr CONT PRN IV SEE PROTOCOL Last administered on 10/20/19at 12:32; Start 10/01/19 at 06:00 Propofol 100 ml @ 0 mls/hr CONT PRN IV SEE PROTOCOL Last administered on 10/08/19at 23:50; Start 10/01/19 at 06:00 Fentanyl Citrate (Fentanyl 2ml Vial) 25 mcg PRN Q1HR PRN IV SEE COMMENTS; Start 10/01/19 at 06:00 Fentanyl Citrate (Fentanyl 2ml Vial) 50 mcg PRN Q1HR PRN IV SEE COMMENTS; Start 10/01/19 at 06:00 Chlorhexidine Gluconate (Peridex) 15 ml BID MM ; Start 10/01/19 at 09:00; Stop 10/01/19 at 07:58; Status DC Potassium Acetate 40 meq/Magnesium Sulfate 5 meq/ Multivitamins 10 ml/Chromium/ Copper/Manganese/ Seleni/Zn 1 ml/ Insulin Human Regular 30 unit/ Total Parenteral Nutrition/Amino Acids/Dextrose/ Fat Emulsion Intravenous 1,920 ml @ 80 mls/hr TPN CONT IV Last administered on 10/01/19at 21:19; Start 10/01/19 at 22:00; Stop 10/02/19 at 21:59; Status DC Acetylcysteine (Mucomyst 20% Resp Treatment) 600 mg BID NEB Last administered on 10/07/19at 09:33; Start 10/01/19 at 21:00; Stop 10/07/19 at 10:39; Status DC Magnesium Sulfate 100 ml @ 25 mls/hr 1X ONCE IV Last administered on 10/01/19at 15:48; Start 10/01/19 at 15:45; Stop 10/01/19 at 19:44; Status DC Potassium Acetate 40 meq/Magnesium Sulfate 5 meq/ Multivitamins 10 ml/Chromium/ Copper/Manganese/ Seleni/Zn 1 ml/ Insulin Human Regular 30 unit/ Total Parenteral Nutrition/Amino Acids/Dextrose/ Fat Emulsion Intravenous 1,920 ml @ 80 mls/hr TPN CONT IV Last administered on 10/02/19at 21:35; Start 10/02/19 at 22:00; Stop 10/03/19 at 21:59; Status DC Potassium Chloride/Water 100 ml @ 100 mls/hr Q1H IV Last administered on 10/03/19at 08:31; Start 10/03/19 at 07:00; Stop 10/03/19 at 08:59; Status DC Potassium Acetate 40 meq/Magnesium Sulfate 5 meq/ Multivitamins 10 ml/Chromium/ Copper/Manganese/ Seleni/Zn 1 ml/ Insulin Human Regular 30 unit/ Total Parenteral Nutrition/Amino Acids/Dextrose/ Fat Emulsion Intravenous 1,920 ml @ 80 mls/hr TPN CONT IV Last administered on 10/03/19at 21:54; Start 10/03/19 at 22:00; Stop 10/04/19 at 19:34; Status DC Lidocaine HCl (Buffered Lidocaine 1%) 3 ml STK-MED ONCE .ROUTE ; Start 10/03/19 at 12:14; Stop 10/03/19 at 12:14; Status DC Lidocaine HCl (Buffered Lidocaine 1%) 3 ml 1X ONCE IJ Last administered on 10/03/19at 13:11; Start 10/03/19 at 13:00; Stop 10/03/19 at 13:01; Status DC Magnesium Sulfate 50 ml @ 25 mls/hr 1X ONCE IV ; Start 10/04/19 at 08:15; Stop 10/04/19 at 10:14; Status DC Potassium Acetate 40 meq/Magnesium Sulfate 10 meq/ Multivitamins 10 ml/Chromium/ Copper/Manganese/ Seleni/Zn 1 ml/ Insulin Human Regular 20 unit/ Total Parenteral Nutrition/Amino Acids/Dextrose/ Fat Emulsion Intravenous 1,920 ml @ 80 mls/hr TPN CONT IV Last administered on 10/04/19at 21:32; Start 10/04/19 at 22:00; Stop 10/05/19 at 21:59; Status DC Potassium Chloride/Water 100 ml @ 100 mls/hr Q1H IV Last administered on 10/05/19at 09:12; Start 10/05/19 at 08:00; Stop 10/05/19 at 09:59; Status DC Alteplase, Recombinant (Cathflo For Central Catheter Clearance) 4 mg 1X ONCE INT CAT ; Start 10/05/19 at 09:15; Stop 10/05/19 at 09:16; Status UNV Alteplase, Recombinant (Cathflo For Central Catheter Clearance) 4 mg 1X ONCE INT CAT ; Start 10/05/19 at 09:15; Stop 10/05/19 at 09:16; Status UNV Alteplase, Recombinant (Cathflo For Central Catheter Clearance) 4 mg 1X ONCE INT CAT ; Start 10/05/19 at 09:15; Stop 10/05/19 at 09:16; Status UNV Alteplase, Recombinant 4 mg/ Sodium Chloride 20 ml @ 20 mls/hr 1X ONCE IV Last administered on 10/05/19at 10:10; Start 10/05/19 at 10:00; Stop 10/05/19 at 10:59; Status DC Alteplase, Recombinant 4 mg/ Sodium Chloride 20 ml @ 20 mls/hr 1X ONCE IV Last administered on 10/05/19at 10:09; Start 10/05/19 at 10:00; Stop 10/05/19 at 10:59; Status DC Alteplase, Recombinant 4 mg/ Sodium Chloride 20 ml @ 20 mls/hr 1X ONCE IV Last administered on 10/05/19at 10:09; Start 10/05/19 at 10:00; Stop 10/05/19 at 10:59; Status DC Potassium Acetate 60 meq/Magnesium Sulfate 10 meq/ Multivitamins 10 ml/Chromium/ Copper/Manganese/ Seleni/Zn 1 ml/ Insulin Human Regular 20 unit/ Total Parenteral Nutrition/Amino Acids/Dextrose/ Fat Emulsion Intravenous 1,920 ml @ 80 mls/hr TPN CONT IV Last administered on 10/05/19at 21:55; Start 10/05/19 at 22:00; Stop 10/06/19 at 21:59; Status DC Albumin Human 500 ml @ 125 mls/hr 1X ONCE IV Last administered on 10/06/19at 12:01; Start 10/06/19 at 11:15; Stop 10/06/19 at 15:14; Status DC Sodium Chloride 500 ml @ 500 mls/hr 1X ONCE IV Last administered on 10/06/19at 13:50; Start 10/06/19 at 11:15; Stop 10/06/19 at 12:14; Status DC Potassium Acetate 60 meq/Magnesium Sulfate 14 meq/ Multivitamins 10 ml/Chromium/ Copper/Manganese/ Seleni/Zn 1 ml/ Insulin Human Regular 20 unit/ Total Parenteral Nutrition/Amino Acids/Dextrose/ Fat Emulsion Intravenous 1,920 ml @ 80 mls/hr TPN CONT IV Last administered on 10/06/19at 22:26; Start 10/06/19 at 22:00; Stop 10/07/19 at 21:59; Status DC Ciprofloxacin/ Dextrose 200 ml @ 200 mls/hr Q12HR IV Last administered on 10/13/19at 08:27; Start 10/06/19 at 21:00; Stop 10/13/19 at 08:56; Status DC Albumin Human 250 ml @ 62.5 mls/hr 1X ONCE IV Last administered on 10/07/19at 11:09; Start 10/07/19 at 11:00; Stop 10/07/19 at 14:59; Status DC Furosemide (Lasix) 20 mg 1X ONCE IVP Last administered on 10/07/19at 14:52; Start 10/07/19 at 10:45; Stop 10/07/19 at 10:49; Status DC Potassium Acetate 60 meq/Magnesium Sulfate 14 meq/ Multivitamins 10 ml/Chromium/ Copper/Manganese/ Seleni/Zn 1 ml/ Insulin Human Regular 15 unit/ Total Parenteral Nutrition/Amino Acids/Dextrose/ Fat Emulsion Intravenous 1,920 ml @ 80 mls/hr TPN CONT IV Last administered on 10/07/19at 22:08; Start 10/07/19 at 22:00; Stop 10/08/19 at 21:59; Status DC Potassium Acetate 60 meq/Magnesium Sulfate 14 meq/ Multivitamins 10 ml/Chromium/ Copper/Manganese/ Seleni/Zn 1 ml/ Insulin Human Regular 15 unit/ Total Parenteral Nutrition/Amino Acids/Dextrose/ Fat Emulsion Intravenous 1,920 ml @ 80 mls/hr TPN CONT IV Last administered on 10/08/19at 22:12; Start 10/08/19 at 22:00; Stop 10/09/19 at 21:59; Status DC Potassium Acetate 60 meq/Magnesium Sulfate 14 meq/ Multivitamins 10 ml/Chromium/ Copper/Manganese/ Seleni/Zn 1 ml/ Insulin Human Regular 15 unit/ Total Parenteral Nutrition/Amino Acids/Dextrose/ Fat Emulsion Intravenous 1,920 ml @ 80 mls/hr TPN CONT IV Last administered on 10/09/19at 22:22; Start 10/09/19 at 22:00; Stop 10/10/19 at 21:59; Status DC Furosemide (Lasix) 20 mg 1X ONCE IVP Last administered on 10/10/19at 11:07; Start 10/10/19 at 10:30; Stop 10/10/19 at 10:34; Status DC Potassium Acetate 60 meq/Magnesium Sulfate 14 meq/ Multivitamins 10 ml/Chromium/ Copper/Manganese/ Seleni/Zn 1 ml/ Insulin Human Regular 15 unit/ Sodium Chloride 20 meq/Total Parenteral Nutrition/Amino Acids/Dextrose/ Fat Emulsion Intravenous 1,920 ml @ 80 mls/hr TPN CONT IV Last administered on 10/10/19at 21:54; Start 10/10/19 at 22:00; Stop 10/11/19 at 21:59; Status DC Potassium Acetate 30 meq/Magnesium Sulfate 14 meq/ Multivitamins 10 ml/Chromium/ Copper/Manganese/ Seleni/Zn 1 ml/ Insulin Human Regular 15 unit/ Sodium Chloride 20 meq/Potassium Chloride 30 meq/ Total Parenteral Nutrition/Amino Acids/Dext amarilis/ Fat Emulsion Intravenous 1,920 ml @ 80 mls/hr TPN CONT IV Last administered on 10/11/19at 21:46; Start 10/11/19 at 22:00; Stop 10/12/19 at 21:59; Status DC Sodium Chloride 80 meq/Potassium Chloride 30 meq/ Potassium Acetate 30 meq/Magnesium Sulfate 14 meq/ Multivitamins 10 ml/Chromium/ Copper/Manganese/ Seleni/Zn 1 ml/ Insulin Human Regular 15 unit/ Total Parenteral Nutrition/Amino Acids/Dextrose/ Fat Emulsion Intravenous 1,920 ml @ 80 mls/hr TPN CONT IV Last administered on 10/12/19at 22:33; Start 10/12/19 at 22:00; Stop 10/13/19 at 21:59; Status DC Furosemide (Lasix) 40 mg 1X ONCE IVP Last administered on 10/12/19at 16:27; Start 10/12/19 at 15:30; Stop 10/12/19 at 15:33; Status DC Albumin Human 250 ml @ 62.5 mls/hr 1X ONCE IV Last administered on 10/12/19at 16:27; Start 10/12/19 at 15:30; Stop 10/12/19 at 19:29; Status DC Sodium Chloride 80 meq/Potassium Chloride 30 meq/ Potassium Acetate 30 meq/Magnesium Sulfate 14 meq/ Multivitamins 10 ml/Chromium/ Copper/Manganese/ Seleni/Zn 1 ml/ Insulin Human Regular 15 unit/ Total Parenteral Nutrition/Amino Acids/Dextrose/ Fat Emulsion Intravenous 1,920 ml @ 80 mls/hr TPN CONT IV Last administered on 10/13/19at 22:25; Start 10/13/19 at 22:00; Stop 10/14/19 at 21:59; Status DC Sodium Chloride 80 meq/Potassium Chloride 30 meq/ Potassium Acetate 30 meq/Magnesium Sulfate 14 meq/ Multivitamins 10 ml/Chromium/ Copper/Manganese/ Se dinorah/Zn 1 ml/ Insulin Human Regular 15 unit/ Total Parenteral Nutrition/Amino Acids/Dextrose/ Fat Emulsion Intravenous 1,920 ml @ 80 mls/hr TPN CONT IV Last administered on 10/14/19at 21:32; Start 10/14/19 at 22:00; Stop 10/15/19 at 21:59; Status DC Sodium Chloride 80 meq/Potassium Chloride 30 meq/ Potassium Acetate 30 meq/Magnesium Sulfate 14 meq/ Multivitamins 10 ml/Chromium/ Copper/Manganese/ Seleni/Zn 1 ml/ Insulin Human Regular 15 unit/ Total Parenteral Nutrition/Amino Acids/Dextrose/ Fat Emulsion Intravenous 1,920 ml @ 80 mls/hr TPN CONT IV Last administered on 10/15/19at 21:53; Start 10/15/19 at 22:00; Stop 10/16/19 at 21:59; Status DC Acetylcysteine (Mucomyst 20% Resp Treatment) 600 mg RTBID NEB Last administered on 10/20/19at 08:00; Start 10/15/19 at 12:00 Sodium Chloride 80 meq/Potassium Chloride 30 meq/ Potassium Acetate 30 meq/Magnesium Sulfate 14 meq/ Multivitamins 10 ml/Chromium/ Copper/Manganese/ Seleni/Zn 1 ml/ Insulin Human Regular 15 unit/ Total Parenteral Nutrition/Amino Acids/Dextrose/ Fat Emulsion Intravenous 1,920 ml @ 80 mls/hr TPN CONT IV Last administered on 10/16/19at 22:06; Start 10/16/19 at 22:00; Stop 10/17/19 at 21:59; Status DC Meropenem 500 mg/ Sodium Chloride 50 ml @ 100 mls/hr Q6HRS IV Last administered on 10/20/19at 12:31; Start 10/16/19 at 18:00 Daptomycin 500 mg/ Sodium Chloride 50 ml @ 100 mls/hr Q24H IV Last administered on 10/19/19at 19:22; Start 10/16/19 at 19:00 Sodium Chloride 80 meq/Potassium Chloride 30 meq/ Potassium Acetate 30 meq/Magnesium Sulfate 14 meq/ Multivitamins 10 ml/Chromium/ Copper/Manganese/ Seleni/Zn 1 ml/ Insulin Human Regular 15 unit/ Total Parenteral Nutrition/Amino Acids/Dextrose/ Fat Emulsion Intravenous 1,920 ml @ 80 mls/hr TPN CONT IV Last administered on 10/17/19at 22:09; Start 10/17/19 at 22:00; Stop 10/18/19 at 21:59; Status DC Heparin Sodium (Porcine) 1000 unit/Sodium Chloride 1,001 ml @ 1,001 mls/hr 1X ONCE IRR ; Start 10/18/19 at 06:00; Stop 10/18/19 at 06:59; Status DC Propofol (Diprivan) 200 mg STK-MED ONCE IV ; Start 10/18/19 at 07:44; Stop 10/18/19 at 07:44; Status DC Lidocaine HCl (Lidocaine Pf 2% Vial) 5 ml STK-MED ONCE .ROUTE ; Start 10/18/19 at 07:44; Stop 10/18/19 at 07:44; Status DC Fentanyl Citrate (Fentanyl 2ml Vial) 100 mcg STK-MED ONCE .ROUTE ; Start 10/18/19 at 07:44; Stop 10/18/19 at 07:44; Status DC Rocuronium Glennie (Zemuron) 100 mg STK-MED ONCE .ROUTE ; Start 10/18/19 at 07:44; Stop 10/18/19 at 07:44; Status DC Micafungin Sodium 100 mg/Dextrose 100 ml @ 100 mls/hr Q24H IV Last administered on 10/20/19at 08:52; Start 10/18/19 at 08:30 Bupivacaine HCl/ Epinephrine Bitart (Sensorcain-Epi 0.5%-1:[id number] Mpf) 30 ml STK-MED ONCE .ROUTE ; Start 10/18/19 at 08:34; Stop 10/18/19 at 08:35; Status DC Iohexol (Omnipaque 300 Mg/ml) 50 ml STK-MED ONCE .ROUTE Last administered on 10/18/19at 13:30; Start 10/18/19 at 08:35; Stop 10/18/19 at 08:35; Status DC Sodium Chloride 80 meq/Potassium Chloride 30 meq/ Potassium Acetate 30 meq/Magnesium Sulfate 14 meq/ Multivitamins 10 ml/Chromium/ Copper/Manganese/ Seleni/Zn 1 ml/ Insulin Human Regular 15 unit/ Total Parenteral Nutrition/Amino Acids/Dextrose/ Fat Emulsion Intravenous 1,920 ml @ 80 mls/hr TPN CONT IV Last administered on 10/19/19at 01:22; Start 10/18/19 at 22:00; Stop 10/19/19 at 21:59; Status DC Phenylephrine HCl (Brayden-Synephrine Inj) 10 mg STK-MED ONCE .ROUTE ; Start 10/18/19 at 10:15; Stop 10/18/19 at 10:15; Status DC Desflurane (Suprane) 90 ml STK-MED ONCE IH ; Start 10/18/19 at 10:18; Stop 10/18/19 at 10:19; Status DC Albumin Human 500 ml @ As Directed STK-MED ONCE IV ; Start 10/18/19 at 11:06; Stop 10/18/19 at 11:06; Status DC Vasopressin (Vasostrict) 20 unit STK-MED ONCE .ROUTE ; Start 10/18/19 at 12:23; Stop 10/18/19 at 12:23; Status DC Phenylephrine HCl (Brayden-Synephrine Inj) 10 mg STK-MED ONCE .ROUTE ; Start 10/18/19 at 13:33; Stop 10/18/19 at 13:33; Status DC Phenylephrine HCl (Brayden-Synephrine Inj) 10 mg STK-MED ONCE .ROUTE ; Start at 13:33; Stop 10/18/19 at 13:33; Status DC Ondansetron HCl (Zofran) 4 mg STK-MED ONCE .ROUTE ; Start 10/18/19 at 13:33; Stop 10/18/19 at 13:33; Status DC Enoxaparin Sodium (Lovenox 40mg Syringe) 40 mg Q24H SQ ; Start 10/19/19 at 08:00 Sodium Chloride (Normal Saline Flush) 3 ml QSHIFT PRN IV AFTER MEDS AND BLOOD DRAWS; Start 10/18/19 at 14:45 Naloxone HCl (Narcan) 0.4 mg PRN Q2MIN PRN IV SEE INSTRUCTIONS; Start 10/18/19 at 14:45 Sodium Chloride 1,000 ml @ 25 mls/hr Q24H IV Last administered on 10/19/19at 15:28; Start 10/18/19 at 14:33 Morphine Sulfate (Morphine Sulfate) 1 mg PRN Q1HR PRN IV PAIN; Start 10/18/19 at 14:45 Midazolam HCl 100 mg/Sodium Chloride 100 ml @ 1 mls/hr CONT PRN IV SEE I/O RECORD Last administered on 10/20/19at 12:31; Start 10/18/19 at 14:45 Phenylephrine HCl (PHENYLEPHRINE in 0.9% NACL PF) 1 mg STK-MED ONCE IV ; Start 10/18/19 at 14:44; Stop 10/18/19 at 14:45; Status DC Ephedrine Sulfate (ePHEDrine PF IN SALINE SYRINGE) 50 mg STK-MED ONCE IV ; Start 10/18/19 at 14:45; Stop 10/18/19 at 14:45; Status DC Vasopressin 20 unit/Dextrose 101 ml @ 12 mls/hr CONT PRN IV SEE I/O RECORD Last administered on 10/20/19at 12:31; Start 10/18/19 at 15:30 Sodium Chloride 1,000 ml @ 1,000 mls/hr 1X ONCE IV Last administered on 10/18/19at 15:42; Start 10/18/19 at 15:45; Stop 10/18/19 at 16:44; Status DC Albumin Human 500 ml @ 125 mls/hr 1X ONCE IV ; Start 10/18/19 at 16:00; Stop 10/18/19 at 19:59; Status DC Albumin Human 500 ml @ 125 mls/hr PRN Q1HR PRN IV PER PROTOCOL; Start 10/18/19 at 15:45 Magnesium Sulfate 50 ml @ 25 mls/hr 1X ONCE IV Last administered on 10/18/19at 17:02; Start 10/18/19 at 16:30; Stop 10/18/19 at 18:29; Status DC Sodium Bicarbonate (Sodium Bicarb Adult 8.4% Syr) 50 meq STK-MED ONCE .ROUTE ; Start 10/18/19 at 16:20; Stop 10/18/19 at 16:20; Status DC Sodium Bicarbonate (Sodium Bicarb Adult 8.4% Syr) 100 meq 1X ONCE IV Last administered on 10/18/19at 17:07; Start 10/18/19 at 16:30; Stop 10/18/19 at 16:31; Status DC Sodium Bicarbonate 150 meq/Dextrose 1,150 ml @ 75 mls/hr 1X ONCE IV Last administered on 10/18/19at 20:02; Start 10/18/19 at 16:30; Stop 10/19/19 at 07:49; Status DC Sodium Chloride 80 meq/Potassium Chloride 30 meq/ Potassium Acetate 30 meq/Magnesium Sulfate 14 meq/ Multivitamins 10 ml/Chromium/ Copper/Manganese/ Seleni/Zn 1 ml/ Insulin Human Regular 15 unit/ Total Parenteral Nutrition/Amino Acids/Dextrose/ Fat Emulsion Intravenous 1,920 ml @ 80 mls/hr TPN CONT IV Last administered on 10/19/19at 23:05; Start 10/19/19 at 22:00; Stop 10/20/19 at 21:59 Sodium Chloride 100 meq/Potassium Chloride 30 meq/ Potassium Acetate 30 meq/Magnesium Sulfate 12 meq/ Multivitamins 10 ml/Chromium/ Copper/Manganese/ Seleni/Zn 1 ml/ Insulin Human Regular 15 unit/ Total Parenteral Nutrition/Amino Acids/Dextrose/ Fat Emulsion Intravenous 1,920 ml @ 80 mls/hr TPN CONT IV ; Start 10/20/19 at 22:00; Stop 10/21/19 at 21:59 Active Scripts Active Reported Bisoprolol Fumarate 5 Mg Tablet 10 Mg PO DAILY Vitals/I & O Vital Sign - Last 24 Hours 10/19/19 10/19/19 10/19/19 10/19/19 15:27 15:46 15:46 16:00 Temp 99.4 99.4 Pulse 116 Resp 12 12 B/P (MAP) 106/49 (68) Pulse Ox 94 100 O2 Delivery Ventilator Mechanical Ventilator Ventilator 10/19/19 10/19/19 10/19/19 10/19/19 16:11 17:00 18:00 19:00 Pulse 110 104 105 Resp 12 12 22 B/P (MAP) 92/50 (64) 90/55 (67) 91/58 (69) Pulse Ox 96 100 100 100 O2 Delivery Ventilator Ventilator Ventilator Ventilator 10/19/19 10/19/19 10/19/19 10/19/19 19:27 19:57 20:00 20:00 Resp 12 19 B/P (MAP) Pulse Ox 100 100 O2 Delivery Ventilator Ventilator Mechanical Ventilator O2 Flow Rate 40.0 10/19/19 10/19/19 10/19/19 10/19/19 20:00 20:23 20:29 20:52 Temp 98.1 98.1 98.8 98.1 98.1 98.8 Pulse 103 105 106 Resp 23 20 B/P (MAP) 96/45 (62) 92/52 122/55 Pulse Ox 100 100 O2 Delivery Ventilator Ventilator 10/19/19 10/19/19 10/19/19 10/19/19 21:00 22:00 22:33 23:00 Temp 99.1 99.1 Pulse 100 104 108 104 Resp 22 22 19 15 B/P (MAP) 118/58 (78) 110/61 (77) 108/57 103/65 (78) Pulse Ox 100 99 99 O2 Delivery Ventilator Ventilator Ventilator 10/19/19 10/20/19 10/20/19 10/20/19 23:02 00:00 00:00 00:01 Temp 98.9 98.9 Pulse 104 Resp 14 B/P (MAP) 96/56 (69) Pulse Ox 97 97 O2 Delivery Ventilator Mechanical Ventilator Ventilator 10/20/19 10/20/19 10/20/19 10/20/19 00:48 01:00 01:05 01:18 Pulse 104 Resp 16 19 19 B/P (MAP) 105/71 (82) Pulse Ox 97 98 98 98 O2 Delivery Ventilator Ventilator Ventilator O2 Flow Rate 40.0 40.0 10/20/19 10/20/19 10/20/19 10/20/19 02:00 03:00 04:00 04:00 Temp 99.2 99.2 Pulse 101 98 103 Resp 19 17 17 B/P (MAP) 97/56 (70) 106/62 (77) 92/62 (72) Pulse Ox 98 99 99 O2 Delivery Ventilator Ventilator Mechanical Ventilator Ventilator 10/20/19 10/20/19 10/20/19 10/20/19 04:00 04:30 05:00 06:00 Pulse 101 92 Resp 17 20 B/P (MAP) 107/74 (85) 122/80 (94) Pulse Ox 98 99 99 O2 Delivery Ventilator Ventilator Ventilator 10/20/19 10/20/19 10/20/19 10/20/19 06:41 07:00 08:00 08:00 Pulse 72 76 Resp 14 16 20 B/P (MAP) 104/56 (72) 109/80 (90) Pulse Ox 99 99 99 O2 Delivery Ventilator Ventilator O2 Flow Rate 40.0 10/20/19 10/20/19 10/20/19 10/20/19 08:00 08:35 08:37 09:00 Temp 98.6 98.6 Pulse 87 Resp 18 20 B/P (MAP) 130/60 (83) Pulse Ox 99 99 99 O2 Delivery Mechanical Ventilator Ventilator Ventilator 10/20/19 10/20/19 10/20/19 10/20/19 09:35 10:00 11:00 11:52 Pulse 92 91 Resp 16 16 B/P (MAP) 94/48 (63) 113/58 (76) Pulse Ox 99 99 99 99 O2 Delivery Ventilator Ventilator Ventilator Ventilator 10/20/19 10/20/19 10/20/19 10/20/19 12:00 12:00 12:00 12:32 Temp 97.7 97.7 Pulse 88 Resp 16 16 B/P (MAP) 134/62 (86) Pulse Ox 99 99 O2 Delivery Mechanical Ventilator Ventilator Ventilator 10/20/19 10/20/19 10/20/19 10/20/19 13:00 13:07 13:13 14:00 Pulse 79 98 Resp 16 16 16 B/P (MAP) 120/62 (81) 88/76 (80) Pulse Ox 99 100 100 99 O2 Delivery Ventilator Ventilator Ventilator Ventilator Intake and Output 10/19/19 10/19/19 10/20/19 15:00 23:00 07:00 Intake Total 275 ml 2124.10 ml 1845.7 ml Output Total 650 ml 975 ml 810 ml Balance -375 ml 1149.10 ml 1035.7 ml Justicifation of Admission Dx: Justifications for Admission: Justification of Admission Dx: Yes GREG HERRERA MD Oct 20, 2019 15:04
[2019-10-20] MEDS: IV NORMAL SALINE 1000ML BAG 1,000 ML IV SCH (18:08)
[2019-10-20] MEDS: DAPTOmycin (GENERIC) IVPB 500 MG in IV NORMAL SALINE 50ML 50 ML IV SCH (21:51)
[2019-10-20] MEDS ORDERED: DEXTROSE 70% IV SCH ×10 (22:00)
[2019-10-20] MEDS ORDERED: TOTAL PARENTERAL NUTRITION IV SCH ×10 (22:00)
[2019-10-20] MEDS ORDERED: AMINO ACID IV SCH ×10 (22:00)
[2019-10-20] MEDS ORDERED: [UNRECOGNIZED DRUG - OTHER] IV SCH ×10 (22:00)
[2019-10-21] VITALS (33 sets, daily range): BP systolic 92–140; BP diastolic 52–77
[2019-10-21] MEDS: MEROPENEM 500 MG in IV NORMAL SALINE 50ML 50 ML IV SCH ×4 (00:08→18:34)
[2019-10-21] MEDS: IPRATRPIUM/ALBUTEROL 0.5/2.5MG 3 ML NEBU. NEB SCH ×6 (00:39→19:48)
[2019-10-21] MEDS: INSULIN LISPRO 300 UNITS/3 ML VIAL. SQ SCH ×5 (06:00→23:59)
[2019-10-21 06:17] LABS: BASO % 0 % (0-3); EOS # 0.3 x10^3/uL (0.0-0.7); EOS % 1 % (0-3); HEMOGLOBIN 8.3 g/dL (12.0-15.5); LYMPH # 1.3 x10^3/uL (1.0-4.8); LYMPH % 4 % (24-48); MEAN CORPUSCULAR HEMOGLOBIN 29 pg (25-35); MEAN CORPUSCULAR HGB CONC 33 g/dL (31-37); MEAN CORPUSCULAR VOLUME 88 fL (79-100); MONO # 1.5 x10^3/uL (0.0-1.1); MONO % 5 % (0-9); NEUT # 26.6 x10^3/uL (1.8-7.7); NEUT % 90 % (31-73); PLATELET COUNT 260 x10^3/uL (140-400); RED BLOOD COUNT 2.85 x10^6/uL (3.50-5.40); WHITE BLOOD COUNT 29.7 x10^3/uL (4.0-11.0)
--- NOTE | 2019-10-21 06:43 | NUR ---
Low urine output at the beginning of shift. Flushed louis without difficulty. Increased urine output. Tracheostomy noted to have greenish yellow discharge oozing around. Trach care completed and redness noted around stoma and cannula. Phlange of trach not flush with the skin. Will continue to monitor.
[2019-10-21] MEDS: VASOPRESSIN 20 UNIT in IV DEXTROSE 5% 100ML 100 ML IV PRN ×2 (07:26→17:39)
[2019-10-21 07:29] LABS: % BANDS 7 % (0-9); % LYMPHS 4 % (24-48); % MONOS 2 % (0-10); % SEGS 87 % (35-66); ANISOCYTOSIS PRESENT; PLT ESTIMATE ADEQUATE (ADEQUATE); POLYCHROMASIA PRESENT
[2019-10-21] MEDS: ENOXAPARIN 40 MG/0.4 ML SYRINGE. SQ SCH (07:43)
[2019-10-21] MEDS: MICAFUNGIN 100 MG in IV DEXTROSE 5% 100ML 100 ML IV SCH (07:56)
[2019-10-21] MEDS: PANTOPRAZOLE IV PUSH 40 MG VIAL. IVP SCH (07:56)
[2019-10-21] MEDS: ACETYLCYSTEINE 20% for RESP TX 600 MG/3 ML. NEB SCH ×2 (08:00→19:48)
--- NOTE | 2019-10-21 08:19 | PDOC ---
Infectious Disease Note Subjective Subjective Sedated Remains on ventilator support, FiO2 40% No fevers last 48 hrs Tube feedings Still on vasopressin and low levophed gtt No BM ROS ROS unobtainable geller to patient's condition Vital Sign Vital Signs Vital Signs Date Time Temp Pulse Resp B/P (MAP) Pulse Ox O2 Delivery O2 Flow Rate FiO2 10/21/19 07:00 80 12 128/59 (82) 99 Ventilator 10/21/19 06:09 40.0 10/21/19 04:00 98.5 98.5 Physical Exam PHYSICAL EXAM GENERAL: Sedated, ill appearing HEENT: Pupils equal, oral cavity dry. + NGT NECK: Tracheostomy LUNGS: Diminished aeration bases, CT on left HEART: S1, S2, regular w/ PVCs ABDOMEN: Mild distention, bowel sounds hypoactive, soft, yoselin x2, 3 KAYLIN drains, G-J tube and + wound vac : Lind EXTREMITIES: Generalized edema, no cyanosis. SCDs & Podus boots bilaterally SKIN: warm touch. No signs of rash. LUE-PICC without signs of complications LUE art-line now out, some mottling left forearm. RP palpable, cap refill brisk. Labs Lab Laboratory Tests Test 10/20/19 12:43 10/20/19 18:10 10/21/19 05:30 10/21/19 06:01 Glucose (Fingerstick) 184 mg/dL (70-99) 176 mg/dL (70-99) 150 mg/dL (70-99) White Blood Count 29.7 x10^3/uL (4.0-11.0) Red Blood Count 2.85 x10^6/uL (3.50-5.40) Hemoglobin 8.3 g/dL (12.0-15.5) Hematocrit 25.0 % (36.0-47.0) Mean Corpuscular Volume 88 fL (79-100) Mean Corpuscular Hemoglobin 29 pg (25-35) Mean Corpuscular Hemoglobin Concent 33 g/dL (31-37) Red Cell Distribution Width 15.0 % (11.5-14.5) Platelet Count 260 x10^3/uL (140-400) Neutrophils (%) (Auto) 90 % (31-73) Lymphocytes (%) (Auto) 4 % (24-48) Monocytes (%) (Auto) 5 % (0-9) Eosinophils (%) (Auto) 1 % (0-3) Basophils (%) (Auto) 0 % (0-3) Neutrophils # (Auto) 26.6 x10^3/uL (1.8-7.7) Lymphocytes # (Auto) 1.3 x10^3/uL (1.0-4.8) Monocytes # (Auto) 1.5 x10^3/uL (0.0-1.1) Eosinophils # (Auto) 0.3 x10^3/uL (0.0-0.7) Basophils # (Auto) 0.0 x10^3/uL (0.0-0.2) Segmented Neutrophils % 87 % (35-66) Band Neutrophils % 7 % (0-9) Lymphocytes % 4 % (24-48) Monocytes % 2 % (0-10) Platelet Estimate Adequate (ADEQUATE) Polychromasia Present Anisocytosis Present Micro 10/15. BLOOD CULTURE Preliminary NO GROWTH AFTER 4 DAYS 10/17. GRAM STAIN Final Final SQUAMOUS EPI CELL:RARE PMN (WBCs):FEW YEAST:FEW ANAEROBIC-AEROBIC CULTURE PENDING Objective Assessment Patient with prolonged hospitalization more than 3 months Multiple medical problems Multiple surgical procedures S/P Exp. Lap, SAURABH, subtotal cholecystectomy with cholangiogram, G-J tube placement & pancreatic necrosectomy on October 17 YEAST Leucocytosis - leukomoid reaction likely postoperative Fever intermittently source likely GI Acute gallstone pancreatitis with persistent necrosis -CT a/p 07/27. Increased ascites. 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 status post KAYLIN drain placement; C. parapsilosis. s/p drain 08/23 + yeast & high amylase; s/p additional drain on 08/25. Drains removed. -08/23. fluid devyn parapsilosis fluid, amylase high - 09/23 showed multiple pseudocysts, slight larger on the right. s/p drains x 3, 09/24. + PSAE (MDRO-R Cefepime, Zosyn ALEXANDRA < 64) and yeast, -09/24 s/p drain replacement x 3; fluid cult PSAE (MDRO), yeast; treated Ascites s/p paracentesis 08/02 & 08/23. C. parapsilosis Cholelithiasis with thickening of the gallbladder wall. JUANA, Hyperkalemia, Metabolic acidosis off dialysis Acute hypoxic resp failure. trach/vent. sputum 09/30 + PSAE (I merrem) Pleural effusions s/p left thoracentesis, 08/29. no culture. s/p left chest tube, 10/02 no growth Hypocalcemia Prediabetes HTN Anemia s/p RBCs Plan Plan of Care continue dapto, merrem and micafungin Monitor labs/cults wound care /drain management as directed Monitor left forearm Check CK level Contact isolation for CRE/MDRO Critically ill D/w nursing Attending Co-Sign Attending Co-Sign The patient was seen and interviewed as well as examined at the bedside. The chart was reviewed. The case was discussed. Agree with the plan of care. FRANCA HOBSON APRN Oct 21, 2019 08:19 WILLY BARAKAT MD Oct 21, 2019 14:39
[2019-10-21 08:31] LABS: BASE EXCESS ABG 1 mmol/L (-3-3); HCO3 ABG 27 mmol/L (21-28); PCO2 ABG 48 mmHg (35-46); PO2 ABG 54 mmHg (75-108); SAT O2 ABG 85 % (92-99)
[2019-10-21 08:40] LABS: FIO2 ABG 40
--- NOTE | 2019-10-21 08:56 | PDOC ---
PULMONARY PROGRESS NOTES Subjective On assist control ventilation sedated Vitals Vital Signs Date Time Temp Pulse Resp B/P (MAP) Pulse Ox O2 Delivery O2 Flow Rate FiO2 10/21/19 08:34 100 Ventilator 10/21/19 08:00 98.8 84 14 102/61 (75) 98.8 10/21/19 06:09 40.0 General: Alert Lungs: Crackles Cardiovascular: S1, S2 Abdomen: Soft, Non-tender, Other (multiple KAYLIN drains ) Extremities: Other (+1 BLE edema) Skin: Warm Labs Laboratory Tests Test 10/19/19 11:55 10/19/19 16:30 10/19/19 17:49 10/20/19 00:19 O2 Saturation 97 % (92-99) Arterial Blood pH 7.38 (7.35-7.45) Arterial Blood pCO2 at Patient Temp 38 mmHg (35-46) Arterial Blood pO2 at Patient Temp 111 mmHg (75-108) Arterial Blood HCO3 22 mmol/L (21-28) Arterial Blood Base Excess -3 mmol/L (-3-3) FiO2 40 Glucose (Fingerstick) 235 mg/dL (70-99) 201 mg/dL (70-99) 200 mg/dL (70-99) Hemoglobin 7.3 g/dL (12.0-15.5) Hematocrit 21.4 % (36.0-47.0) Mean Corpuscular Hemoglobin Concent 34 g/dL (31-37) Test 10/20/19 06:09 10/20/19 06:10 10/20/19 08:00 10/20/19 12:43 Glucose (Fingerstick) 157 mg/dL (70-99) 184 mg/dL (70-99) White Blood Count 38.3 x10^3/uL (4.0-11.0) Red Blood Count 3.06 x10^6/uL (3.50-5.40) Hemoglobin 9.0 g/dL (12.0-15.5) Hematocrit 26.8 % (36.0-47.0) Mean Corpuscular Volume 88 fL (79-100) Mean Corpuscular Hemoglobin 29 pg (25-35) Mean Corpuscular Hemoglobin Concent 34 g/dL (31-37) Red Cell Distribution Width 14.8 % (11.5-14.5) Platelet Count 278 x10^3/uL (140-400) Sodium Level 134 mmol/L (136-145) Potassium Level 4.0 mmol/L (3.5-5.1) Chloride Level 103 mmol/L (98-107) Carbon Dioxide Level 28 mmol/L (21-32) Anion Gap 3 (6-14) Blood Urea Nitrogen 24 mg/dL (7-20) Creatinine 0.7 mg/dL (0.6-1.0) Estimated GFR (Cockcroft-Gault) 88.9 Glucose Level 178 mg/dL (70-99) Calcium Level 8.9 mg/dL (8.5-10.1) Phosphorus Level 4.2 mg/dL (2.6-4.7) Magnesium Level 2.1 mg/dL (1.8-2.4) O2 Saturation 98 % (92-99) Arterial Blood pH 7.36 (7.35-7.45) Arterial Blood pCO2 at Patient Temp 41 mmHg (35-46) Arterial Blood pO2 at Patient Temp 127 mmHg (75-108) Arterial Blood HCO3 23 mmol/L (21-28) Arterial Blood Base Excess -2 mmol/L (-3-3) FiO2 40 Test 10/20/19 18:10 10/21/19 05:30 10/21/19 06:01 10/21/19 08:00 Glucose (Fingerstick) 176 mg/dL (70-99) 150 mg/dL (70-99) White Blood Count 29.7 x10^3/uL (4.0-11.0) Red Blood Count 2.85 x10^6/uL (3.50-5.40) Hemoglobin 8.3 g/dL (12.0-15.5) Hematocrit 25.0 % (36.0-47.0) Mean Corpuscular Volume 88 fL (79-100) Mean Corpuscular Hemoglobin 29 pg (25-35) Mean Corpuscular Hemoglobin Concent 33 g/dL (31-37) Red Cell Distribution Width 15.0 % (11.5-14.5) Platelet Count 260 x10^3/uL (140-400) Neutrophils (%) (Auto) 90 % (31-73) Lymphocytes (%) (Auto) 4 % (24-48) Monocytes (%) (Auto) 5 % (0-9) Eosinophils (%) (Auto) 1 % (0-3) Basophils (%) (Auto) 0 % (0-3) Neutrophils # (Auto) 26.6 x10^3/uL (1.8-7.7) Lymphocytes # (Auto) 1.3 x10^3/uL (1.0-4.8) Monocytes # (Auto) 1.5 x10^3/uL (0.0-1.1) Eosinophils # (Auto) 0.3 x10^3/uL (0.0-0.7) Basophils # (Auto) 0.0 x10^3/uL (0.0-0.2) Segmented Neutrophils % 87 % (35-66) Band Neutrophils % 7 % (0-9) Lymphocytes % 4 % (24-48) Monocytes % 2 % (0-10) Platelet Estimate Adequate (ADEQUATE) Polychromasia Present Anisocytosis Present Creatine Kinase 17 U/L (26-192) O2 Saturation 85 % (92-99) Arterial Blood pH 7.36 (7.35-7.45) Arterial Blood pCO2 at Patient Temp 48 mmHg (35-46) Arterial Blood pO2 at Patient Temp 54 mmHg (75-108) Arterial Blood HCO3 27 mmol/L (21-28) Arterial Blood Base Excess 1 mmol/L (-3-3) FiO2 40 Laboratory Tests Test 10/20/19 12:43 10/20/19 18:10 10/21/19 05:30 10/21/19 06:01 Glucose (Fingerstick) 184 mg/dL (70-99) 176 mg/dL (70-99) 150 mg/dL (70-99) White Blood Count 29.7 x10^3/uL (4.0-11.0) Red Blood Count 2.85 x10^6/uL (3.50-5.40) Hemoglobin 8.3 g/dL (12.0-15.5) Hematocrit 25.0 % (36.0-47.0) Mean Corpuscular Volume 88 fL (79-100) Mean Corpuscular Hemoglobin 29 pg (25-35) Mean Corpuscular Hemoglobin Concent 33 g/dL (31-37) Red Cell Distribution Width 15.0 % (11.5-14.5) Platelet Count 260 x10^3/uL (140-400) Neutrophils (%) (Auto) 90 % (31-73) Lymphocytes (%) (Auto) 4 % (24-48) Monocytes (%) (Auto) 5 % (0-9) Eosinophils (%) (Auto) 1 % (0-3) Basophils (%) (Auto) 0 % (0-3) Neutrophils # (Auto) 26.6 x10^3/uL (1.8-7.7) Lymphocytes # (Auto) 1.3 x10^3/uL (1.0-4.8) Monocytes # (Auto) 1.5 x10^3/uL (0.0-1.1) Eosinophils # (Auto) 0.3 x10^3/uL (0.0-0.7) Basophils # (Auto) 0.0 x10^3/uL (0.0-0.2) Segmented Neutrophils % 87 % (35-66) Band Neutrophils % 7 % (0-9) Lymphocytes % 4 % (24-48) Monocytes % 2 % (0-10) Platelet Estimate Adequate (ADEQUATE) Polychromasia Present Anisocytosis Present Creatine Kinase 17 U/L (26-192) Test 10/21/19 08:00 O2 Saturation 85 % (92-99) Arterial Blood pH 7.36 (7.35-7.45) Arterial Blood pCO2 at Patient Temp 48 mmHg (35-46) Arterial Blood pO2 at Patient Temp 54 mmHg (75-108) Arterial Blood HCO3 27 mmol/L (21-28) Arterial Blood Base Excess 1 mmol/L (-3-3) FiO2 40 Medications Active Scripts Medications Dose Route/Sig Max Daily Dose Days Date Category Bisoprolol Fumarate 5 Mg Tablet 10 Mg PO DAILY 07/04/19 Reported Comments CXR 10/16/19 IMPRESSION: No significant interval change compared to 10/13/2019. ct abdomen /pelvis 09/23 1. Removal of the percutaneous pigtail drainage catheters since the prior exam. Sequela of pancreatitis with extensive pseudocysts again demonstrated, the right-sided collections are slightly larger since the prior exam, the left-sided collections are stable. See above. 2. Moderate to large left pleural effusion with atelectasis and collapse of most of the left lower lobe, stable. Small right pleural effusion is stable. 3. Gallstone. ct chest 10/02 reviewed GRAM NEG COCCOBACILLI:MANY SQUAMOUS EPI CELL:RARE PMN (WBCs):FEW Unless otherwise specified, Testing Performed by: [facility] [address] [place] [address] For Inquires, the Physician may contact the Microbiology department at [phone] RESPIRATORY CULTURE Final Final MANY GRAM NEGATIVE RODS on 10/03/19 at 1107 FINAL ID= [[email or web address]] MICRO CHARGES PSEUDOMONAS AERUGINOSA ANTIMICROBIAL SUSCEPTIBILITY Final Comment NEG ALEXANDRA 56 PSEUDOMONAS AERUGINOSA ANTIBIOTIC RESULT INTERPRETATION AMIKACIN <=16 S AZTREONAM <=4 S CEFTAZIDIME <=1 S CIPROFLOXACIN <=0.25 S CEFEPIME <=2 S CEFTAZIDIME/AVIBACTAM <=4 S GENTAMICIN <=2 S LEVOFLOXACIN <=0.5 S Impression . IMPRESSION: 1. Acute hypoxemic respiratory failure secondary to ARDS status post trach, developed anemia 09/24, blood drainage from RLQ abdomen drain site, and surrounding firmness / developed septic shock 09/24 from abdomen source, required levo /7 s/p 3 new drains 09/24 with brown color drainage, on/off vent , on TS now 2. Gallstone pancreatitis, now with ongoing bleeding from prior drain. Anemic. s/p Tx multiple units over several days 3. septic shock/sepsis, recurrent 09/24, source abdomen. , off levo now, 4. Acute kidney injury-, Off HD--renal function decling. suspect JUANA on CKD due to hypotension , improved now 5. Acute gallstone pancreatitis. 6. Hypoalbuminemia. 7. Moderate persistent effusions, s/p left thora 08/29, reaccumulation of left effusion. O2 requirement not changed. 8. Fever- ,hypotension. suspect recurrent sepsis/ likely pancreatic source. Per ID, per surgery-- 9. Chronic anemia-- ongoing / s/p PRBC 10. Covid 19 testing negative 11. Moderate to large ascites-S/P paracentisis 12.S/P paracentisis with 4 liters removed on 08/03/19 13. S/P IR drain placement on 08/26/2019, removal, re inserted 09/24 14. Depression/Anxiety 15. Increase effusion, ? loculated/ s/p chest tube.. drainage slowing down. 200 cc /24 hr 10/17 Exploratory laparotomy, lysis of adhesions, subtotal cholecystectomy with cholangiogram, gastrojejunostomy tube placement, pancreatic necrosectomy Plan . Nothing new to add we will continue support we will continue assist control ventilation Multiple drains in place OR note Anticoagulation for DVT prophylaxis Antibiotics per ID Pressors for hypotension IV fluids Follow labs. CC time 30 minutes HARMEET BEE MD Oct 21, 2019 08:56
--- NOTE | 2019-10-21 09:59 | PDOC ---
SURGICAL PROGRESS NOTE Subjective Patient sedated on ventilator Vital Signs Vital Signs Date Time Temp Pulse Resp B/P (MAP) Pulse Ox O2 Delivery O2 Flow Rate FiO2 10/21/19 09:00 75 14 140/76 (97) 99 Ventilator 10/21/19 08:00 98.8 98.8 10/21/19 06:09 40.0 I&O Intake and Output 10/21/19 07:00 Intake Total 2018.79 ml Output Total 2430 ml Balance -411.21 ml IV Total 1448.79 ml Tube Feeding 420 ml Other 150 ml Output Urine Total 985 ml Chest Tube Drainage Total 150 ml Drainage Total 1295 ml PATIENT HAS A ROSARIO: Yes General: Other (Sedated on the ventilator) Abdomen: Soft, Other (Wound VAC in place drain output has decreased in all drains, awaiting return of bowel function prior to increasing tube feeds) Labs Laboratory Tests Test 10/19/19 11:55 10/19/19 16:30 10/19/19 17:49 10/20/19 00:19 O2 Saturation 97 % (92-99) Arterial Blood pH 7.38 (7.35-7.45) Arterial Blood pCO2 at Patient Temp 38 mmHg (35-46) Arterial Blood pO2 at Patient Temp 111 mmHg (75-108) Arterial Blood HCO3 22 mmol/L (21-28) Arterial Blood Base Excess -3 mmol/L (-3-3) FiO2 40 Glucose (Fingerstick) 235 mg/dL (70-99) 201 mg/dL (70-99) 200 mg/dL (70-99) Hemoglobin 7.3 g/dL (12.0-15.5) Hematocrit 21.4 % (36.0-47.0) Mean Corpuscular Hemoglobin Concent 34 g/dL (31-37) Test 10/20/19 06:09 10/20/19 06:10 10/20/19 08:00 10/20/19 12:43 Glucose (Fingerstick) 157 mg/dL (70-99) 184 mg/dL (70-99) White Blood Count 38.3 x10^3/uL (4.0-11.0) Red Blood Count 3.06 x10^6/uL (3.50-5.40) Hemoglobin 9.0 g/dL (12.0-15.5) Hematocrit 26.8 % (36.0-47.0) Mean Corpuscular Volume 88 fL (79-100) Mean Corpuscular Hemoglobin 29 pg (25-35) Mean Corpuscular Hemoglobin Concent 34 g/dL (31-37) Red Cell Distribution Width 14.8 % (11.5-14.5) Platelet Count 278 x10^3/uL (140-400) Sodium Level 134 mmol/L (136-145) Potassium Level 4.0 mmol/L (3.5-5.1) Chloride Level 103 mmol/L (98-107) Carbon Dioxide Level 28 mmol/L (21-32) Anion Gap 3 (6-14) Blood Urea Nitrogen 24 mg/dL (7-20) Creatinine 0.7 mg/dL (0.6-1.0) Estimated GFR (Cockcroft-Gault) 88.9 Glucose Level 178 mg/dL (70-99) Calcium Level 8.9 mg/dL (8.5-10.1) Phosphorus Level 4.2 mg/dL (2.6-4.7) Magnesium Level 2.1 mg/dL (1.8-2.4) O2 Saturation 98 % (92-99) Arterial Blood pH 7.36 (7.35-7.45) Arterial Blood pCO2 at Patient Temp 41 mmHg (35-46) Arterial Blood pO2 at Patient Temp 127 mmHg (75-108) Arterial Blood HCO3 23 mmol/L (21-28) Arterial Blood Base Excess -2 mmol/L (-3-3) FiO2 40 Test 10/20/19 18:10 10/21/19 05:30 10/21/19 06:01 10/21/19 08:00 Glucose (Fingerstick) 176 mg/dL (70-99) 150 mg/dL (70-99) White Blood Count 29.7 x10^3/uL (4.0-11.0) Red Blood Count 2.85 x10^6/uL (3.50-5.40) Hemoglobin 8.3 g/dL (12.0-15.5) Hematocrit 25.0 % (36.0-47.0) Mean Corpuscular Volume 88 fL (79-100) Mean Corpuscular Hemoglobin 29 pg (25-35) Mean Corpuscular Hemoglobin Concent 33 g/dL (31-37) Red Cell Distribution Width 15.0 % (11.5-14.5) Platelet Count 260 x10^3/uL (140-400) Neutrophils (%) (Auto) 90 % (31-73) Lymphocytes (%) (Auto) 4 % (24-48) Monocytes (%) (Auto) 5 % (0-9) Eosinophils (%) (Auto) 1 % (0-3) Basophils (%) (Auto) 0 % (0-3) Neutrophils # (Auto) 26.6 x10^3/uL (1.8-7.7) Lymphocytes # (Auto) 1.3 x10^3/uL (1.0-4.8) Monocytes # (Auto) 1.5 x10^3/uL (0.0-1.1) Eosinophils # (Auto) 0.3 x10^3/uL (0.0-0.7) Basophils # (Auto) 0.0 x10^3/uL (0.0-0.2) Segmented Neutrophils % 87 % (35-66) Band Neutrophils % 7 % (0-9) Lymphocytes % 4 % (24-48) Monocytes % 2 % (0-10) Platelet Estimate Adequate (ADEQUATE) Polychromasia Present Anisocytosis Present Creatine Kinase 17 U/L (26-192) O2 Saturation 85 % (92-99) Arterial Blood pH 7.36 (7.35-7.45) Arterial Blood pCO2 at Patient Temp 48 mmHg (35-46) Arterial Blood pO2 at Patient Temp 54 mmHg (75-108) Arterial Blood HCO3 27 mmol/L (21-28) Arterial Blood Base Excess 1 mmol/L (-3-3) FiO2 40 Laboratory Tests Test 10/20/19 12:43 10/20/19 18:10 10/21/19 05:30 10/21/19 06:01 Glucose (Fingerstick) 184 mg/dL (70-99) 176 mg/dL (70-99) 150 mg/dL (70-99) White Blood Count 29.7 x10^3/uL (4.0-11.0) Red Blood Count 2.85 x10^6/uL (3.50-5.40) Hemoglobin 8.3 g/dL (12.0-15.5) Hematocrit 25.0 % (36.0-47.0) Mean Corpuscular Volume 88 fL (79-100) Mean Corpuscular Hemoglobin 29 pg (25-35) Mean Corpuscular Hemoglobin Concent 33 g/dL (31-37) Red Cell Distribution Width 15.0 % (11.5-14.5) Platelet Count 260 x10^3/uL (140-400) Neutrophils (%) (Auto) 90 % (31-73) Lymphocytes (%) (Auto) 4 % (24-48) Monocytes (%) (Auto) 5 % (0-9) Eosinophils (%) (Auto) 1 % (0-3) Basophils (%) (Auto) 0 % (0-3) Neutrophils # (Auto) 26.6 x10^3/uL (1.8-7.7) Lymphocytes # (Auto) 1.3 x10^3/uL (1.0-4.8) Monocytes # (Auto) 1.5 x10^3/uL (0.0-1.1) Eosinophils # (Auto) 0.3 x10^3/uL (0.0-0.7) Basophils # (Auto) 0.0 x10^3/uL (0.0-0.2) Segmented Neutrophils % 87 % (35-66) Band Neutrophils % 7 % (0-9) Lymphocytes % 4 % (24-48) Monocytes % 2 % (0-10) Platelet Estimate Adequate (ADEQUATE) Polychromasia Present Anisocytosis Present Creatine Kinase 17 U/L (26-192) Test 10/21/19 08:00 O2 Saturation 85 % (92-99) Arterial Blood pH 7.36 (7.35-7.45) Arterial Blood pCO2 at Patient Temp 48 mmHg (35-46) Arterial Blood pO2 at Patient Temp 54 mmHg (75-108) Arterial Blood HCO3 27 mmol/L (21-28) Arterial Blood Base Excess 1 mmol/L (-3-3) FiO2 40 Problem List Problems Medical Problems: (1) Acute pancreatitis Status: Acute (2) Cholelithiasis Status: Acute Assessment/Plan Status post pancreatic debridement Hemodynamically stable Increase tube feeds once bowel function returns Supportive care Justicifation of Admission Dx: Justifications for Admission: Justification of Admission Dx: Yes CARIN MALDONADO MD Oct 21, 2019 09:59
[2019-10-21] MEDS: MIDAZOLAM HCL 100 MG in IV NORMAL SALINE 100ML 100 ML IV PRN ×2 (10:01→18:48)
[2019-10-21 10:58] LABS: ALBUMIN/GLOBULIN RATIO 0.4 (1.0-1.7); CALCIUM 8.6 mg/dL (8.5-10.1); CREATININE 0.6 mg/dL (0.6-1.0); GFR 106.3; POTASSIUM 3.9 mmol/L (3.5-5.1); TOTAL BILIRUBIN 0.6 mg/dL (0.2-1.0); TOTAL PROTEIN 3.7 g/dL (6.4-8.2)
[2019-10-21] MEDS: TPN PER PHARMACY MC PRN (11:45)
--- NOTE | 2019-10-21 11:47 | NUR ---
Pharmacy TPN Dosing Note S: SCOTT CUELLAR is a 48 year old F Currently receiving Central Continuous TPN started 07/06/19 B:Pertinent PMH: Necrotizing pancreatitis LABS: Sodium: 133 Potassium: 3.9 Chloride: 102 Calcium: 8.6 Corrected Calcium: 11.00 Magnesium: 2.1 CO2: 28 SCr: 0.6 Glucose: 150 Albumin: 1.0 AST: 42 ALT: 98 TPN FORMULA: TPN TYPE: Central Continuous AMINO ACIDS: 80 gm DEXTROSE: 250 gm LIPIDS: 20 gm SODIUM CHLORIDE: 100 mEq SODIUM ACETATE: - mEq SODIUM PHOSPHATE: - mmol POTASSIUM CHLORIDE: 30 mEq POTASSIUM ACETATE: 30 mEq POTASSIUM PHOSPHATE: - mmol MAGNESIUM: 12 mEq CALCIUM: - mEq INSULIN: 15 units MULTIPLE VITAMIN: 10 ml TRACE ELEMENTS: 1 ml ml(s) TPN PLAN: 10/20 CONT SAME, REPEAT LABS IN AM R: Continue TPN Will monitor electrolytes, glucose, and tolerance to TPN. [facility], 10/21/19 1144
--- NOTE | 2019-10-21 11:55 | PDOC ---
G I PROGRESS NOTE Subjective Intubated/sedated. Objective Staff indicate no new issues. Still high output from retroperitoneal drains. Physical Exam Ventilated. Not distended. Review of Relevant I have reviewed the following items kolby (where applicable) has been applied. Labs Laboratory Tests Test 10/19/19 11:55 10/19/19 16:30 10/19/19 17:49 10/20/19 00:19 O2 Saturation 97 % (92-99) Arterial Blood pH 7.38 (7.35-7.45) Arterial Blood pCO2 at Patient Temp 38 mmHg (35-46) Arterial Blood pO2 at Patient Temp 111 mmHg (75-108) Arterial Blood HCO3 22 mmol/L (21-28) Arterial Blood Base Excess -3 mmol/L (-3-3) FiO2 40 Glucose (Fingerstick) 235 mg/dL (70-99) 201 mg/dL (70-99) 200 mg/dL (70-99) Hemoglobin 7.3 g/dL (12.0-15.5) Hematocrit 21.4 % (36.0-47.0) Mean Corpuscular Hemoglobin Concent 34 g/dL (31-37) Test 10/20/19 06:09 10/20/19 06:10 10/20/19 08:00 10/20/19 12:43 Glucose (Fingerstick) 157 mg/dL (70-99) 184 mg/dL (70-99) White Blood Count 38.3 x10^3/uL (4.0-11.0) Red Blood Count 3.06 x10^6/uL (3.50-5.40) Hemoglobin 9.0 g/dL (12.0-15.5) Hematocrit 26.8 % (36.0-47.0) Mean Corpuscular Volume 88 fL (79-100) Mean Corpuscular Hemoglobin 29 pg (25-35) Mean Corpuscular Hemoglobin Concent 34 g/dL (31-37) Red Cell Distribution Width 14.8 % (11.5-14.5) Platelet Count 278 x10^3/uL (140-400) Sodium Level 134 mmol/L (136-145) Potassium Level 4.0 mmol/L (3.5-5.1) Chloride Level 103 mmol/L (98-107) Carbon Dioxide Level 28 mmol/L (21-32) Anion Gap 3 (6-14) Blood Urea Nitrogen 24 mg/dL (7-20) Creatinine 0.7 mg/dL (0.6-1.0) Estimated GFR (Cockcroft-Gault) 88.9 Glucose Level 178 mg/dL (70-99) Calcium Level 8.9 mg/dL (8.5-10.1) Phosphorus Level 4.2 mg/dL (2.6-4.7) Magnesium Level 2.1 mg/dL (1.8-2.4) O2 Saturation 98 % (92-99) Arterial Blood pH 7.36 (7.35-7.45) Arterial Blood pCO2 at Patient Temp 41 mmHg (35-46) Arterial Blood pO2 at Patient Temp 127 mmHg (75-108) Arterial Blood HCO3 23 mmol/L (21-28) Arterial Blood Base Excess -2 mmol/L (-3-3) FiO2 40 Test 10/20/19 18:10 10/21/19 05:30 10/21/19 06:01 10/21/19 08:00 Glucose (Fingerstick) 176 mg/dL (70-99) 150 mg/dL (70-99) White Blood Count 29.7 x10^3/uL (4.0-11.0) Red Blood Count 2.85 x10^6/uL (3.50-5.40) Hemoglobin 8.3 g/dL (12.0-15.5) Hematocrit 25.0 % (36.0-47.0) Mean Corpuscular Volume 88 fL (79-100) Mean Corpuscular Hemoglobin 29 pg (25-35) Mean Corpuscular Hemoglobin Concent 33 g/dL (31-37) Red Cell Distribution Width 15.0 % (11.5-14.5) Platelet Count 260 x10^3/uL (140-400) Neutrophils (%) (Auto) 90 % (31-73) Lymphocytes (%) (Auto) 4 % (24-48) Monocytes (%) (Auto) 5 % (0-9) Eosinophils (%) (Auto) 1 % (0-3) Basophils (%) (Auto) 0 % (0-3) Neutrophils # (Auto) 26.6 x10^3/uL (1.8-7.7) Lymphocytes # (Auto) 1.3 x10^3/uL (1.0-4.8) Monocytes # (Auto) 1.5 x10^3/uL (0.0-1.1) Eosinophils # (Auto) 0.3 x10^3/uL (0.0-0.7) Basophils # (Auto) 0.0 x10^3/uL (0.0-0.2) Segmented Neutrophils % 87 % (35-66) Band Neutrophils % 7 % (0-9) Lymphocytes % 4 % (24-48) Monocytes % 2 % (0-10) Platelet Estimate Adequate (ADEQUATE) Polychromasia Present Anisocytosis Present Creatine Kinase 17 U/L (26-192) O2 Saturation 85 % (92-99) Arterial Blood pH 7.36 (7.35-7.45) Arterial Blood pCO2 at Patient Temp 48 mmHg (35-46) Arterial Blood pO2 at Patient Temp 54 mmHg (75-108) Arterial Blood HCO3 27 mmol/L (21-28) Arterial Blood Base Excess 1 mmol/L (-3-3) FiO2 40 Test 10/21/19 10:16 Sodium Level 133 mmol/L (136-145) Potassium Level 3.9 mmol/L (3.5-5.1) Chloride Level 102 mmol/L (98-107) Carbon Dioxide Level 28 mmol/L (21-32) Anion Gap 3 (6-14) Blood Urea Nitrogen 20 mg/dL (7-20) Creatinine 0.6 mg/dL (0.6-1.0) Estimated GFR (Cockcroft-Gault) 106.3 BUN/Creatinine Ratio 33 (6-20) Glucose Level 224 mg/dL (70-99) Calcium Level 8.6 mg/dL (8.5-10.1) Total Bilirubin 0.6 mg/dL (0.2-1.0) Aspartate Amino Transf (AST/SGOT) 42 U/L (15-37) Alanine Aminotransferase (ALT/SGPT) 98 U/L (14-59) Alkaline Phosphatase 199 U/L (46-116) Total Protein 3.7 g/dL (6.4-8.2) Albumin 1.0 g/dL (3.4-5.0) Albumin/Globulin Ratio 0.4 (1.0-1.7) Laboratory Tests Test 10/20/19 12:43 10/20/19 18:10 10/21/19 05:30 10/21/19 06:01 Glucose (Fingerstick) 184 mg/dL (70-99) 176 mg/dL (70-99) 150 mg/dL (70-99) White Blood Count 29.7 x10^3/uL (4.0-11.0) Red Blood Count 2.85 x10^6/uL (3.50-5.40) Hemoglobin 8.3 g/dL (12.0-15.5) Hematocrit 25.0 % (36.0-47.0) Mean Corpuscular Volume 88 fL (79-100) Mean Corpuscular Hemoglobin 29 pg (25-35) Mean Corpuscular Hemoglobin Concent 33 g/dL (31-37) Red Cell Distribution Width 15.0 % (11.5-14.5) Platelet Count 260 x10^3/uL (140-400) Neutrophils (%) (Auto) 90 % (31-73) Lymphocytes (%) (Auto) 4 % (24-48) Monocytes (%) (Auto) 5 % (0-9) Eosinophils (%) (Auto) 1 % (0-3) Basophils (%) (Auto) 0 % (0-3) Neutrophils # (Auto) 26.6 x10^3/uL (1.8-7.7) Lymphocytes # (Auto) 1.3 x10^3/uL (1.0-4.8) Monocytes # (Auto) 1.5 x10^3/uL (0.0-1.1) Eosinophils # (Auto) 0.3 x10^3/uL (0.0-0.7) Basophils # (Auto) 0.0 x10^3/uL (0.0-0.2) Segmented Neutrophils % 87 % (35-66) Band Neutrophils % 7 % (0-9) Lymphocytes % 4 % (24-48) Monocytes % 2 % (0-10) Platelet Estimate Adequate (ADEQUATE) Polychromasia Present Anisocytosis Present Creatine Kinase 17 U/L (26-192) Test 10/21/19 08:00 10/21/19 10:16 O2 Saturation 85 % (92-99) Arterial Blood pH 7.36 (7.35-7.45) Arterial Blood pCO2 at Patient Temp 48 mmHg (35-46) Arterial Blood pO2 at Patient Temp 54 mmHg (75-108) Arterial Blood HCO3 27 mmol/L (21-28) Arterial Blood Base Excess 1 mmol/L (-3-3) FiO2 40 Sodium Level 133 mmol/L (136-145) Potassium Level 3.9 mmol/L (3.5-5.1) Chloride Level 102 mmol/L (98-107) Carbon Dioxide Level 28 mmol/L (21-32) Anion Gap 3 (6-14) Blood Urea Nitrogen 20 mg/dL (7-20) Creatinine 0.6 mg/dL (0.6-1.0) Estimated GFR (Cockcroft-Gault) 106.3 BUN/Creatinine Ratio 33 (6-20) Glucose Level 224 mg/dL (70-99) Calcium Level 8.6 mg/dL (8.5-10.1) Total Bilirubin 0.6 mg/dL (0.2-1.0) Aspartate Amino Transf (AST/SGOT) 42 U/L (15-37) Alanine Aminotransferase (ALT/SGPT) 98 U/L (14-59) Alkaline Phosphatase 199 U/L (46-116) Total Protein 3.7 g/dL (6.4-8.2) Albumin 1.0 g/dL (3.4-5.0) Albumin/Globulin Ratio 0.4 (1.0-1.7) Microbiology 10/18/19 Gram Stain - Final, Resulted 10/18/19 Aerobic and Anaerobic Culture, Resulted Pending 10/16/19 Blood Culture - Preliminary, Resulted NO GROWTH AFTER 4 DAYS 10/03/19 Gram Stain - Final, Complete 10/03/19 Aerobic and Anaerobic Culture - Final, Complete 10/01/19 Gram Stain Evaluation - Final, Complete 10/01/19 Respiratory Culture - Final, Complete 10/01/19 Antimicrobic Susceptibility - Final, Complete 09/25/19 Urine Culture - Final, Complete 09/17/19 Gram Stain - Final, Complete 09/17/19 Aerobic Culture - Final, Complete Vitals/I & O Vital Sign - Last 24 Hours 10/20/19 10/20/19 10/20/19 10/20/19 11:52 12:00 12:00 12:00 Temp 97.7 97.7 Pulse 88 Resp 16 B/P (MAP) 134/62 (86) Pulse Ox 99 99 O2 Delivery Ventilator Mechanical Ventilator Ventilator 10/20/19 10/20/19 10/20/19 10/20/19 12:32 13:00 13:07 13:13 Pulse 79 Resp 16 16 16 B/P (MAP) 120/62 (81) Pulse Ox 99 99 100 100 O2 Delivery Ventilator Ventilator Ventilator Ventilator 10/20/19 10/20/19 10/20/19 10/20/19 14:00 15:00 15:50 16:00 Temp 97.9 97.9 Pulse 98 102 96 Resp 16 12 14 B/P (MAP) 88/76 (80) 136/74 (94) 110/67 (81) Pulse Ox 99 99 100 99 O2 Delivery Ventilator Ventilator Ventilator Ventilator 10/20/19 10/20/19 10/20/19 10/20/19 16:00 17:00 17:20 18:00 Pulse 92 68 Resp 14 16 B/P (MAP) 113/68 (83) 123/72 (89) Pulse Ox 99 100 99 O2 Delivery Mechanical Ventilator Ventilator Ventilator Ventilator 10/20/19 10/20/19 10/20/19 10/20/19 19:00 20:00 20:00 20:15 Temp 97.7 97.7 Pulse 76 86 Resp 24 20 B/P (MAP) 157/91 (113) 155/99 (117) Pulse Ox 100 98 100 O2 Delivery Ventilator Ventilator Mechanical Ventilator Ventilator 10/20/19 10/20/19 10/20/19 10/20/19 20:18 21:00 22:00 23:00 Pulse 81 83 90 Resp 24 18 18 B/P (MAP) 109/53 (71) 156/88 (110) 128/77 (94) Pulse Ox 100 100 100 99 O2 Delivery Ventilator Ventilator Ventilator Ventilator 10/20/19 10/20/19 10/21/19 10/21/19 23:21 23:41 00:00 00:01 Temp 99.4 99.4 Pulse 100 Resp 19 24 19 B/P (MAP) 135/77 (96) Pulse Ox 100 100 100 O2 Delivery Mechanical Ventilator Ventilator O2 Flow Rate 40.0 40.0 10/21/19 10/21/19 10/21/19 10/21/19 00:10 01:00 02:00 03:00 Pulse 82 83 83 Resp 19 22 22 B/P (MAP) 131/76 (94) 127/75 (92) 114/63 (80) Pulse Ox 100 99 99 99 O2 Delivery Ventilator Ventilator Ventilator Ventilator 10/21/19 10/21/19 10/21/19 10/21/19 03:47 04:00 04:00 05:00 Temp 98.5 98.5 Pulse 87 86 Resp 23 25 B/P (MAP) 118/64 (82) 132/72 (92) Pulse Ox 100 99 99 O2 Delivery Ventilator Ventilator Mechanical Ventilator Ventilator 10/21/19 10/21/19 10/21/19 10/21/19 05:39 06:00 06:09 07:00 Pulse 83 80 Resp 18 26 26 12 B/P (MAP) 113/58 (76) 128/59 (82) Pulse Ox 100 99 99 99 O2 Delivery Ventilator Ventilator Ventilator O2 Flow Rate 40.0 40.0 10/21/19 10/21/19 10/21/19 10/21/19 07:15 07:30 07:45 08:00 Pulse 80 80 80 B/P (MAP) 132/70 (90) 128/59 (82) 131/74 (93) O2 Delivery Mechanical Ventilator 10/21/19 10/21/19 10/21/19 10/21/19 08:00 08:15 08:30 08:34 Temp 98.8 98.8 Pulse 84 90 86 Resp 14 B/P (MAP) 102/61 (75) 94/53 (67) 102/61 (75) Pulse Ox 99 93 O2 Delivery Ventilator Ventilator 10/21/19 10/21/19 10/21/19 10/21/19 08:45 09:00 09:15 09:30 Pulse 80 75 82 82 Resp 14 B/P (MAP) 108/67 (81) 140/76 (97) 138/73 (94) 125/75 (92) Pulse Ox 99 O2 Delivery Ventilator 10/21/19 10/21/19 10/21/19 10/21/19 09:45 10:00 11:00 11:11 Pulse 82 82 83 Resp 14 14 B/P (MAP) 110/63 (79) 111/69 (83) 116/60 (78) Pulse Ox 99 99 99 O2 Delivery Ventilator Ventilator Ventilator 10/21/19 11:30 Temp 98.2 98.2 Pulse 87 Resp 14 B/P (MAP) 104/64 (77) Pulse Ox 95 O2 Delivery Ventilator Intake and Output 10/20/19 10/20/19 10/21/19 15:00 23:00 07:00 Intake Total 300 ml 1618.79 ml 100 ml Output Total 545 ml 705 ml 1180 ml Balance -245 ml 913.79 ml -1080 ml Problem List Problems Medical Problems: (1) Acute pancreatitis Status: Acute (2) Cholelithiasis Status: Acute Assessment Severe biliary pancreatitis, s/p ronel and drainage of retroperitoneal fluid collections. If these were communicating pseudocysts, we may have the equivalent of pancreatic fistulae. Plan of Care Note Check fluid amylase. Octreotide? Particularly if very high fluid amylase. Off the weekend. Coverage available if needed. Justicifation of Admission Dx: Justifications for Admission: Justification of Admission Dx: Yes MARY RIVAS MD Oct 21, 2019 11:55
[2019-10-21] MEDS: IV NORMAL SALINE 1000ML BAG 1,000 ML IV SCH (14:33)
--- NOTE | 2019-10-21 15:55 | PDOC ---
PROGRESS NOTES Chief Complaint Chief Complaint Acute hypoxic Respiratory failure required mechanical ventilation Tracheostomy bilateral pleural effusions/pulm edema s/p Throacentesis on 10/03/2019 Severe Acute gallstone pancreatitis (not a surgical candidate at this time) with necrosis Acute kidney failure now requiring dialysis Gallstones (Calculus of gallbladder with acute cholecystitis without obstruction) HTN Intractable pain Intractable nausea Covid 19 negative. Acute on chronic anemia EEG: No seizure activityFever - better currently - intermittent could be from underlying pancreatitis blood cults 08/21 - neg so far ? Ileus with vomiting Abd distention - U/S and CT reviewed s/p 0.4 L of opaque, debris-containing ascites was removed 08/23 Acute pancreatitis with persistent necrosis Gallstone pancreatitis with necrosis. -CT A/P 09/23 showed multiple pseudocysts, slight larger on the right. s/p drains x , 09/24. + PSAE (MDRO-R Cefepime, Zosyn ALEXANDRA < 64) and yeast, -s/p drain 08/14. C. parapsilosis. s/p drain 08/23 + yeast & high amylase; s/p additional drain on 08/25. Drains removed. Ascites s/p paracentesis 08/02 & 08/23. C. parapsilosis JUANA. off HD. A large fluid collection in the pancreatic bed has slightly decreased in size, described below, the pancreas itself is difficult to visualize, which could be due to necrosis or obscuration of pancreatic parenchyma from the surrounding fluid collection.10/02 - 08/14 status post KAYLIN drain placement + C paropsilosis. s/p additional drains 08/25 Anemia - S/p PRBCs Cholelithiasis with thickening of the gallbladder wall. Leucocytosis improving JUANA, hyperkalemia, Metabolic acidosis off dialysis hypocalcemia Prediabetes HTN s/p trach ESRD on HD Hyperglycemia severe protein-caloric malnutrition Moderate to large left pleural effusion with atelectasis and collapse of most of the left lower lobe, stable Dispo - ICU, critically ill Poor prognosis History of Present Illness History of Present Illness 10/20, no meaningful change cont current 2 drains still putting out a lot of fluid 10/19, prongonsis poor, wean pressors as able , s/p surg Vitals Vitals Vital Signs Date Time Temp Pulse Resp B/P (MAP) Pulse Ox O2 Delivery O2 Flow Rate FiO2 10/21/19 15:52 Mechanical Ventilator 10/21/19 15:38 98 10/21/19 15:00 86 14 105/57 (73) 10/21/19 11:30 98.2 98.2 10/21/19 06:09 40.0 Physical Exam Physical Exam GENERAL: Sedated, ill appearing HEENT: Pupils equal, oral cavity dry. + NGT NECK: Tracheostomy LUNGS: Diminished aeration bases, CT on left HEART: S1, S2, regular w/ PVCs ABDOMEN: Mild distention, bowel sounds hypoactive, soft, yoselin x2, 3 KAYLIN drains, G-J tube and + wound vac : Lind EXTREMITIES: Generalized edema, no cyanosis. SCDs & Podus boots bilaterally SKIN: warm touch. No signs of rash. LUE-PICC without signs of complications LUE art-line now out, some mottling left forearm. RP palpable, cap refill brisk. General: Other (Sedated on the ventilator) Heart: Regular rate (SR/ST), Other (distant heart sounds) Lungs: Crackles Abdomen: Soft, Other (Wound VAC in place drain output has decreased in all drains, awaiting return of bowel function prior to increasing tube feeds) Extremities: Other (Diffuse edema) Skin: No rashes, No significant lesion Labs LABS Laboratory Tests Test 10/20/19 18:10 10/21/19 05:30 10/21/19 06:01 10/21/19 08:00 Glucose (Fingerstick) 176 mg/dL (70-99) 150 mg/dL (70-99) White Blood Count 29.7 x10^3/uL (4.0-11.0) Red Blood Count 2.85 x10^6/uL (3.50-5.40) Hemoglobin 8.3 g/dL (12.0-15.5) Hematocrit 25.0 % (36.0-47.0) Mean Corpuscular Volume 88 fL (79-100) Mean Corpuscular Hemoglobin 29 pg (25-35) Mean Corpuscular Hemoglobin Concent 33 g/dL (31-37) Red Cell Distribution Width 15.0 % (11.5-14.5) Platelet Count 260 x10^3/uL (140-400) Neutrophils (%) (Auto) 90 % (31-73) Lymphocytes (%) (Auto) 4 % (24-48) Monocytes (%) (Auto) 5 % (0-9) Eosinophils (%) (Auto) 1 % (0-3) Basophils (%) (Auto) 0 % (0-3) Neutrophils # (Auto) 26.6 x10^3/uL (1.8-7.7) Lymphocytes # (Auto) 1.3 x10^3/uL (1.0-4.8) Monocytes # (Auto) 1.5 x10^3/uL (0.0-1.1) Eosinophils # (Auto) 0.3 x10^3/uL (0.0-0.7) Basophils # (Auto) 0.0 x10^3/uL (0.0-0.2) Segmented Neutrophils % 87 % (35-66) Band Neutrophils % 7 % (0-9) Lymphocytes % 4 % (24-48) Monocytes % 2 % (0-10) Platelet Estimate Adequate (ADEQUATE) Polychromasia Present Anisocytosis Present Creatine Kinase 17 U/L (26-192) O2 Saturation 85 % (92-99) Arterial Blood pH 7.36 (7.35-7.45) Arterial Blood pCO2 at Patient Temp 48 mmHg (35-46) Arterial Blood pO2 at Patient Temp 54 mmHg (75-108) Arterial Blood HCO3 27 mmol/L (21-28) Arterial Blood Base Excess 1 mmol/L (-3-3) FiO2 40 Test 10/21/19 10:16 10/21/19 12:26 Sodium Level 133 mmol/L (136-145) Potassium Level 3.9 mmol/L (3.5-5.1) Chloride Level 102 mmol/L (98-107) Carbon Dioxide Level 28 mmol/L (21-32) Anion Gap 3 (6-14) Blood Urea Nitrogen 20 mg/dL (7-20) Creatinine 0.6 mg/dL (0.6-1.0) Estimated GFR (Cockcroft-Gault) 106.3 BUN/Creatinine Ratio 33 (6-20) Glucose Level 224 mg/dL (70-99) Calcium Level 8.6 mg/dL (8.5-10.1) Total Bilirubin 0.6 mg/dL (0.2-1.0) Aspartate Amino Transf (AST/SGOT) 42 U/L (15-37) Alanine Aminotransferase (ALT/SGPT) 98 U/L (14-59) Alkaline Phosphatase 199 U/L (46-116) Total Protein 3.7 g/dL (6.4-8.2) Albumin 1.0 g/dL (3.4-5.0) Albumin/Globulin Ratio 0.4 (1.0-1.7) Glucose (Fingerstick) 179 mg/dL (70-99) Assessment and Plan Assessmemt and Plan Problems Medical Problems: (1) Acute pancreatitis Status: Acute (2) Cholelithiasis Status: Acute Comment Review of Relevant I have reviewed the following items kolby (where applicable) has been applied. Labs Laboratory Tests Test 10/19/19 16:30 10/19/19 17:49 10/20/19 00:19 10/20/19 06:09 Hemoglobin 7.3 g/dL (12.0-15.5) Hematocrit 21.4 % (36.0-47.0) Mean Corpuscular Hemoglobin Concent 34 g/dL (31-37) Glucose (Fingerstick) 201 mg/dL (70-99) 200 mg/dL (70-99) 157 mg/dL (70-99) Test 10/20/19 06:10 10/20/19 08:00 10/20/19 12:43 10/20/19 18:10 White Blood Count 38.3 x10^3/uL (4.0-11.0) Red Blood Count 3.06 x10^6/uL (3.50-5.40) Hemoglobin 9.0 g/dL (12.0-15.5) Hematocrit 26.8 % (36.0-47.0) Mean Corpuscular Volume 88 fL (79-100) Mean Corpuscular Hemoglobin 29 pg (25-35) Mean Corpuscular Hemoglobin Concent 34 g/dL (31-37) Red Cell Distribution Width 14.8 % (11.5-14.5) Platelet Count 278 x10^3/uL (140-400) Sodium Level 134 mmol/L (136-145) Potassium Level 4.0 mmol/L (3.5-5.1) Chloride Level 103 mmol/L (98-107) Carbon Dioxide Level 28 mmol/L (21-32) Anion Gap 3 (6-14) Blood Urea Nitrogen 24 mg/dL (7-20) Creatinine 0.7 mg/dL (0.6-1.0) Estimated GFR (Cockcroft-Gault) 88.9 Glucose Level 178 mg/dL (70-99) Calcium Level 8.9 mg/dL (8.5-10.1) Phosphorus Level 4.2 mg/dL (2.6-4.7) Magnesium Level 2.1 mg/dL (1.8-2.4) O2 Saturation 98 % (92-99) Arterial Blood pH 7.36 (7.35-7.45) Arterial Blood pCO2 at Patient Temp 41 mmHg (35-46) Arterial Blood pO2 at Patient Temp 127 mmHg (75-108) Arterial Blood HCO3 23 mmol/L (21-28) Arterial Blood Base Excess -2 mmol/L (-3-3) FiO2 40 Glucose (Fingerstick) 184 mg/dL (70-99) 176 mg/dL (70-99) Test 10/21/19 05:30 10/21/19 06:01 10/21/19 08:00 10/21/19 10:16 White Blood Count 29.7 x10^3/uL (4.0-11.0) Red Blood Count 2.85 x10^6/uL (3.50-5.40) Hemoglobin 8.3 g/dL (12.0-15.5) Hematocrit 25.0 % (36.0-47.0) Mean Corpuscular Volume 88 fL (79-100) Mean Corpuscular Hemoglobin 29 pg (25-35) Mean Corpuscular Hemoglobin Concent 33 g/dL (31-37) Red Cell Distribution Width 15.0 % (11.5-14.5) Platelet Count 260 x10^3/uL (140-400) Neutrophils (%) (Auto) 90 % (31-73) Lymphocytes (%) (Auto) 4 % (24-48) Monocytes (%) (Auto) 5 % (0-9) Eosinophils (%) (Auto) 1 % (0-3) Basophils (%) (Auto) 0 % (0-3) Neutrophils # (Auto) 26.6 x10^3/uL (1.8-7.7) Lymphocytes # (Auto) 1.3 x10^3/uL (1.0-4.8) Monocytes # (Auto) 1.5 x10^3/uL (0.0-1.1) Eosinophils # (Auto) 0.3 x10^3/uL (0.0-0.7) Basophils # (Auto) 0.0 x10^3/uL (0.0-0.2) Segmented Neutrophils % 87 % (35-66) Band Neutrophils % 7 % (0-9) Lymphocytes % 4 % (24-48) Monocytes % 2 % (0-10) Platelet Estimate Adequate (ADEQUATE) Polychromasia Present Anisocytosis Present Creatine Kinase 17 U/L (26-192) Glucose (Fingerstick) 150 mg/dL (70-99) O2 Saturation 85 % (92-99) Arterial Blood pH 7.36 (7.35-7.45) Arterial Blood pCO2 at Patient Temp 48 mmHg (35-46) Arterial Blood pO2 at Patient Temp 54 mmHg (75-108) Arterial Blood HCO3 27 mmol/L (21-28) Arterial Blood Base Excess 1 mmol/L (-3-3) FiO2 40 Sodium Level 133 mmol/L (136-145) Potassium Level 3.9 mmol/L (3.5-5.1) Chloride Level 102 mmol/L (98-107) Carbon Dioxide Level 28 mmol/L (21-32) Anion Gap 3 (6-14) Blood Urea Nitrogen 20 mg/dL (7-20) Creatinine 0.6 mg/dL (0.6-1.0) Estimated GFR (Cockcroft-Gault) 106.3 BUN/Creatinine Ratio 33 (6-20) Glucose Level 224 mg/dL (70-99) Calcium Level 8.6 mg/dL (8.5-10.1) Total Bilirubin 0.6 mg/dL (0.2-1.0) Aspartate Amino Transf (AST/SGOT) 42 U/L (15-37) Alanine Aminotransferase (ALT/SGPT) 98 U/L (14-59) Alkaline Phosphatase 199 U/L (46-116) Total Protein 3.7 g/dL (6.4-8.2) Albumin 1.0 g/dL (3.4-5.0) Albumin/Globulin Ratio 0.4 (1.0-1.7) Test 10/21/19 12:26 Glucose (Fingerstick) 179 mg/dL (70-99) Laboratory Tests Test 10/20/19 18:10 10/21/19 05:30 10/21/19 06:01 10/21/19 08:00 Glucose (Fingerstick) 176 mg/dL (70-99) 150 mg/dL (70-99) White Blood Count 29.7 x10^3/uL (4.0-11.0) Red Blood Count 2.85 x10^6/uL (3.50-5.40) Hemoglobin 8.3 g/dL (12.0-15.5) Hematocrit 25.0 % (36.0-47.0) Mean Corpuscular Volume 88 fL (79-100) Mean Corpuscular Hemoglobin 29 pg (25-35) Mean Corpuscular Hemoglobin Concent 33 g/dL (31-37) Red Cell Distribution Width 15.0 % (11.5-14.5) Platelet Count 260 x10^3/uL (140-400) Neutrophils (%) (Auto) 90 % (31-73) Lymphocytes (%) (Auto) 4 % (24-48) Monocytes (%) (Auto) 5 % (0-9) Eosinophils (%) (Auto) 1 % (0-3) Basophils (%) (Auto) 0 % (0-3) Neutrophils # (Auto) 26.6 x10^3/uL (1.8-7.7) Lymphocytes # (Auto) 1.3 x10^3/uL (1.0-4.8) Monocytes # (Auto) 1.5 x10^3/uL (0.0-1.1) Eosinophils # (Auto) 0.3 x10^3/uL (0.0-0.7) Basophils # (Auto) 0.0 x10^3/uL (0.0-0.2) Segmented Neutrophils % 87 % (35-66) Band Neutrophils % 7 % (0-9) Lymphocytes % 4 % (24-48) Monocytes % 2 % (0-10) Platelet Estimate Adequate (ADEQUATE) Polychromasia Present Anisocytosis Present Creatine Kinase 17 U/L (26-192) O2 Saturation 85 % (92-99) Arterial Blood pH 7.36 (7.35-7.45) Arterial Blood pCO2 at Patient Temp 48 mmHg (35-46) Arterial Blood pO2 at Patient Temp 54 mmHg (75-108) Arterial Blood HCO3 27 mmol/L (21-28) Arterial Blood Base Excess 1 mmol/L (-3-3) FiO2 40 Test 10/21/19 10:16 10/21/19 12:26 Sodium Level 133 mmol/L (136-145) Potassium Level 3.9 mmol/L (3.5-5.1) Chloride Level 102 mmol/L (98-107) Carbon Dioxide Level 28 mmol/L (21-32) Anion Gap 3 (6-14) Blood Urea Nitrogen 20 mg/dL (7-20) Creatinine 0.6 mg/dL (0.6-1.0) Estimated GFR (Cockcroft-Gault) 106.3 BUN/Creatinine Ratio 33 (6-20) Glucose Level 224 mg/dL (70-99) Calcium Level 8.6 mg/dL (8.5-10.1) Total Bilirubin 0.6 mg/dL (0.2-1.0) Aspartate Amino Transf (AST/SGOT) 42 U/L (15-37) Alanine Aminotransferase (ALT/SGPT) 98 U/L (14-59) Alkaline Phosphatase 199 U/L (46-116) Total Protein 3.7 g/dL (6.4-8.2) Albumin 1.0 g/dL (3.4-5.0) Albumin/Globulin Ratio 0.4 (1.0-1.7) Glucose (Fingerstick) 179 mg/dL (70-99) Microbiology 10/18/19 Gram Stain - Final, Resulted 10/18/19 Aerobic and Anaerobic Culture - Preliminary, Resulted 10/16/19 Blood Culture - Preliminary, Resulted NO GROWTH AFTER 4 DAYS 10/03/19 Gram Stain - Final, Complete 10/03/19 Aerobic and Anaerobic Culture - Final, Complete 10/01/19 Gram Stain Evaluation - Final, Complete 10/01/19 Respiratory Culture - Final, Complete 10/01/19 Antimicrobic Susceptibility - Final, Complete 09/25/19 Urine Culture - Final, Complete 09/17/19 Gram Stain - Final, Complete 09/17/19 Aerobic Culture - Final, Complete Medications Current Medications Sodium Chloride 1,000 ml @ 1,000 mls/hr Q1H IV Last administered on 07/04/19at 03:00; Start 07/04/19 at 03:00; Stop 07/04/19 at 03:59; Status DC Ondansetron HCl (Zofran) 4 mg 1X ONCE IVP Last administered on 07/04/19at 03:27; Start 07/04/19 at 03:00; Stop 07/04/19 at 03:01; Status DC Morphine Sulfate (Morphine Sulfate) 4 mg 1X ONCE IV ; Start 07/04/19 at 03:00; Stop 07/04/19 at 03:01; Status Cancel Ketorolac Tromethamine (Toradol 30mg Vial) 30 mg 1X ONCE IV Last administered on 07/04/19at 02:54; Start 07/04/19 at 03:00; Stop 07/04/19 at 03:01; Status DC Fentanyl Citrate (Fentanyl 2ml Vial) 25 mcg 1X ONCE IVP Last administered on 07/04/19at 03:23; Start 07/04/19 at 03:30; Stop 07/04/19 at 03:31; Status DC Fentanyl Citrate (Fentanyl 2ml Vial) 100 mcg STK-MED ONCE .ROUTE ; Start 07/04/19 at 03:18; Stop 07/04/19 at 03:18; Status DC Iohexol (Omnipaque 350 Mg/ml) 90 ml 1X ONCE IV Last administered on 07/04/19at 03:25; Start 07/04/19 at 03:30; Stop 07/04/19 at 03:31; Status DC Info (CONTRAST GIVEN -- Rx MONITORING) 1 each PRN DAILY PRN MC SEE COMMENTS; Start 07/04/19 at 03:30; Stop 07/06/19 at 03:29; Status DC Hydromorphone HCl (Dilaudid) 0.5 mg 1X ONCE IV Last administered on 07/04/19at 03:55; Start 07/04/19 at 04:30; Stop 07/04/19 at 04:32; Status DC Ondansetron HCl (Zofran) 4 mg PRN Q8HRS PRN IV NAUSEA/VOMITING 1ST CHOICE; Start 07/04/19 at 05:00; Stop 07/04/19 at 09:27; Status DC Morphine Sulfate (Morphine Sulfate) 2 mg PRN Q2HR PRN IV SEVERE PAIN 7-10 Last administered on 07/05/19at 12:26; Start 07/04/19 at 05:00; Stop 07/05/19 at 14:15; Status DC Sodium Chloride 1,000 ml @ 125 mls/hr Q8H IV Last administered on 07/04/19at 20:56; Start 07/04/19 at 05:00; Stop 07/05/19 at 04:59; Status DC Hydromorphone HCl (Dilaudid) 0.5 mg PRN Q3HRS PRN IV SEVERE PAIN 7-10 Last administered on 07/05/19at 10:06; Start 07/04/19 at 05:00; Stop 07/05/19 at 12:01; Status DC Piperacillin Sod/ Tazobactam Sod 4.5 gm/Sodium Chloride 100 ml @ 200 mls/hr 1X ONCE IV Last administered on 07/04/19at 05:44; Start 07/04/19 at 06:00; Stop 07/04/19 at 06:29; Status DC Ondansetron HCl (Zofran) 4 mg PRN Q4HRS PRN IV NAUSEA/VOMITING 1ST CHOICE Last administered on 10/15/19at 13:37; Start 07/04/19 at 09:30 Insulin Human Lispro (HumaLOG) 0-9 UNITS Q6HRS SQ Last administered on 10/21/19at 12:30; Start 07/04/19 at 09:30 Dextrose (Dextrose 50%-Water Syringe) 12.5 gm PRN Q15MIN PRN IV SEE COMMENTS; Start 07/04/19 at 09:30 Pantoprazole Sodium (PROTONIX VIAL for IV PUSH) 40 mg DAILYAC IVP Last administered on 10/21/19at 07:56; Start 07/04/19 at 11:30 Prochlorperazine Edisylate (Compazine) 10 mg PRN Q6HRS PRN IV NAUSEA/VOMITING, 2nd CHOICE Last administered on 10/15/19at 10:53; Start 07/04/19 at 17:45 Atenolol (Tenormin) 100 mg DAILY PO ; Start 07/05/19 at 09:00; Stop 07/04/19 at 20:08; Status DC Metoprolol Tartrate (Lopressor Vial) 2.5 mg Q6HRS IVP Last administered on 07/05/19at 05:51; Start 07/04/19 at 20:15; Stop 07/05/19 at 10:02; Status DC Metoprolol Tartrate (Lopressor Vial) 5 mg Q6HRS IVP Last administered on 07/14/19at 00:12; Start 07/05/19 at 10:15; Stop 07/16/19 at 08:48; Status DC Hydromorphone HCl (Dilaudid) 1 mg PRN Q3HRS PRN IV SEVERE PAIN 7-10 Last administered on 07/11/19at 05:13; Start 07/05/19 at 12:00; Stop 07/19/19 at 00:25; Status DC Lidocaine HCl (Buffered Lidocaine 1%) 3 ml STK-MED ONCE .ROUTE ; Start 07/05/19 at 12:55; Stop 07/05/19 at 12:56; Status DC Albumin Human 500 ml @ 125 mls/hr 1X ONCE IV Last administered on 07/05/19at 14:33; Start 07/05/19 at 14:30; Stop 07/05/19 at 18:32; Status DC Norepinephrine Bitartrate 8 mg/ Dextrose 258 ml @ 17.299 mls/ hr CONT PRN IV PER PROTOCOL Last administered on 08/02/19at 12:48; Start 07/05/19 at 15:30; Stop 08/05/19 at 09:19; Status DC Sodium Chloride 1,000 ml @ 125 mls/hr Q8H IV Last administered on 07/05/19at 21:04; Start 07/05/19 at 16:00; Stop 07/06/19 at 02:42; Status DC Albumin Human 500 ml @ 125 mls/hr PRN BID PRN IV After every 2L NSS & BP < 90mm Last administered on 10/18/19at 16:06; Start 07/05/19 at 16:00; Stop 10/21/19 at 09:30; Status DC Iohexol (Omnipaque 300 Mg/ml) 60 ml 1X ONCE IV Last administered on 07/05/19at 17:20; Start 07/05/19 at 17:00; Stop 07/05/19 at 17:01; Status DC Info (CONTRAST GIVEN -- Rx MONITORING) 1 each PRN DAILY PRN MC SEE COMMENTS; Start 07/05/19 at 17:00; Stop 07/07/19 at 16:59; Status DC Meropenem 1 gm/ Sodium Chloride 100 ml @ 200 mls/hr Q8HRS IV Last administered on 07/06/19at 05:45; Start 07/05/19 at 20:00; Stop 07/06/19 at 08:48; Status DC Furosemide (Lasix) 40 mg 1X ONCE IVP Last administered on 07/05/19at 22:12; Start 07/05/19 at 22:30; Stop 07/05/19 at 22:31; Status DC Calcium Chloride 1000 mg/Sodium Chloride 110 ml @ 220 mls/hr 1X ONCE IV Last administered on 07/05/19at 22:11; Start 07/05/19 at 22:30; Stop 07/05/19 at 22:59; Status DC Albuterol Sulfate (Ventolin Neb Soln) 2.5 mg 1X ONCE NEB Last administered on 07/06/19at 00:56; Start 07/05/19 at 22:30; Stop 07/05/19 at 22:31; Status DC Insulin Human Regular (HumuLIN R VIAL) 5 unit 1X ONCE IV Last administered on 07/05/19at 22:14; Start 07/05/19 at 22:30; Stop 07/05/19 at 22:31; Status DC Magnesium Sulfate 50 ml @ 25 mls/hr 1X ONCE IV Last administered on 07/06/19at 02:57; Start 07/06/19 at 03:00; Stop 07/06/19 at 04:59; Status DC Calcium Gluconate 1000 mg/Sodium Chloride 110 ml @ 220 mls/hr 1X ONCE IV Last administered on 07/06/19at 02:46; Start 07/06/19 at 03:00; Stop 07/06/19 at 03:29; Status DC Sodium Chloride 1,000 ml @ 200 mls/hr Q5H IV Last administered on 07/06/19at 02:46; Start 07/06/19 at 03:00; Stop 07/06/19 at 10:21; Status DC Calcium Gluconate 1000 mg/Sodium Chloride 110 ml @ 220 mls/hr 1X ONCE IV Last administered on 07/06/19at 03:21; Start 07/06/19 at 03:30; Stop 07/06/19 at 03:59; Status DC Sodium Bicarbonate 50 meq/Sodium Chloride 1,050 ml @ 75 mls/hr Q14H IV Last administered on 07/10/19at 21:10; Start 07/06/19 at 07:30; Stop 07/11/19 at 10:28; Status DC Calcium Gluconate 2000 mg/Sodium Chloride 120 ml @ 220 mls/hr 1X ONCE IV Last administered on 07/06/19at 09:05; Start 07/06/19 at 07:30; Stop 07/06/19 at 08:02; Status DC Lidocaine HCl (Xylocaine-Mpf 1% 2ml Vial) 2 ml STK-MED ONCE .ROUTE ; Start 07/06/19 at 08:47; Stop 07/06/19 at 08:47; Status DC Meropenem 500 mg/ Sodium Chloride 50 ml @ 100 mls/hr Q12HR IV Last administered on 07/11/19at 21:01; Start 07/06/19 at 18:00; Stop 07/12/19 at 07:58; Status DC Lidocaine HCl (Buffered Lidocaine 1%) 3 ml STK-MED ONCE .ROUTE ; Start 07/06/19 at 09:46; Stop 07/06/19 at 09:46; Status DC Lidocaine HCl (Buffered Lidocaine 1%) 6 ml 1X ONCE INJ Last administered on 07/06/19at 10:26; Start 07/06/19 at 10:15; Stop 07/06/19 at 10:16; Status DC Info (Tpn Per Pharmacy) 1 each PRN DAILY PRN MC SEE COMMENTS Last administered on 10/21/19at 11:45; Start 07/06/19 at 12:00 Sodium Chloride 1,000 ml @ 1,000 mls/hr Q1H PRN IV hypotension; Start 07/06/19 at 12:07; Stop 07/06/19 at 18:06; Status DC Diphenhydramine HCl (Benadryl) 25 mg 1X PRN PRN IV ITCHING; Start 07/06/19 at 12:15; Stop 07/07/19 at 12:14; Status DC Diphenhydramine HCl (Benadryl) 25 mg 1X PRN PRN IV ITCHING; Start 07/06/19 at 12:15; Stop 07/07/19 at 12:14; Status DC Sodium Chloride 1,000 ml @ 400 mls/hr Q2H30M PRN IV PATENCY; Start 07/06/19 at 12:07; Stop 07/07/19 at 00:06; Status DC Info (PHARMACY MONITORING -- do not chart) 1 each PRN DAILY PRN MC SEE COMMENTS; Start 07/06/19 at 12:15; Stop 07/08/19 at 08:13; Status DC Sodium Chloride 90 meq/Calcium Gluconate 10 meq/ Multivitamins 10 ml/Chromium/ Copper/Manganese/ Seleni/Zn 1 ml/ Total Parenteral Nutrition/Amino Acids/Dextrose/ Fat Emulsion Intravenous 55.005 ml @ 2.292 mls/hr TPN CONT IV ; Start 07/06/19 at 22:00; Stop 07/06/19 at 12:33; Status DC Info (Tpn Per Pharmacy) 1 each PRN DAILY PRN MC SEE COMMENTS; Start 07/06/19 at 12:30; Status UNV Sodium Chloride 90 meq/Calcium Gluconate 10 meq/ Multivitamins 10 ml/Chromium/ C opper/Manganese/ Seleni/Zn 0.5 ml/ Total Parenteral Nutrition/Amino Acids/Dextrose/ Fat Emulsion Intravenous 1,512 ml @ 63 mls/hr TPN CONT IV Last administered on 07/06/19at 22:06; Start 07/06/19 at 22:00; Stop 07/07/19 at 21:59; Status DC Calcium Carbonate/ Glycine (Tums) 500 mg PRN AFTMEALHC PRN PO INDIGESTION; Start 07/06/19 at 17:45; Stop 08/31/19 at 10:25; Status DC Calcium Gluconate (Calcium Gluconate) 2,000 mg 1X ONCE IVP Last administered on 07/07/19at 02:19; Start 07/07/19 at 02:15; Stop 07/07/19 at 02:16; Status DC Calcium Chloride 3000 mg/Sodium Chloride 1,030 ml @ 50 mls/hr [id number] IV Last administered on 07/09/19at 02:17; Start 07/07/19 at 08:00; Stop 07/09/19 at 15:23; Status DC Lorazepam (Ativan Inj) 1 mg PRN Q4HRS PRN IVP ANXIETY / AGITATION, 2nd choic Last administered on 08/05/19at 03:51; Start 07/07/19 at 09:00; Stop 08/05/19 at 09:19; Status DC Sodium Chloride 1,000 ml @ 1,000 mls/hr Q1H PRN IV hypotension; Start 07/07/19 at 08:56; Stop 07/07/19 at 14:55; Status DC Albumin Human 200 ml @ 200 mls/hr 1X PRN PRN IV Hypotension; Start 07/07/19 at 09:00; Stop 07/07/19 at 14:59; Status DC Diphenhydramine HCl (Benadryl) 25 mg 1X PRN PRN IV ITCHING; Start 07/07/19 at 09:00; Stop 07/08/19 at 08:59; Status DC Diphenhydramine HCl (Benadryl) 25 mg 1X PRN PRN IV ITCHING; Start 07/07/19 at 09:00; Stop 07/08/19 at 08:59; Status DC Sodium Chloride 1,000 ml @ 400 mls/hr Q2H30M PRN IV PATENCY; Start 07/07/19 at 08:56; Stop 07/07/19 at 20:55; Status DC Info (PHARMACY MONITORING -- do not chart) 1 each PRN DAILY PRN MC SEE COMMENTS; Start 07/07/19 at 09:00; Status UNV Info (PHARMACY MONITORING -- do not chart) 1 each PRN DAILY PRN MC SEE COMMENTS; Start 07/07/19 at 09:00; Stop 07/08/19 at 08:13; Status DC Digoxin (Lanoxin) 500 mcg 1X ONCE IV Last administered on 07/07/19at 10:04; Start 07/07/19 at 10:00; Stop 07/07/19 at 10:01; Status DC Digoxin (Lanoxin) 125 mcg 1X ONCE IV Last administered on 07/07/19at 17:10; Start 07/07/19 at 18:00; Stop 07/07/19 at 18:01; Status DC Magnesium Sulfate 100 ml @ 25 mls/hr 1X ONCE IV Last administered on 07/07/19at 12:48; Start 07/07/19 at 13:00; Stop 07/07/19 at 16:59; Status DC Sodium Chloride 90 meq/Magnesium Sulfate 10 meq/ Calcium Gluconate 20 meq/ Multivitamins 10 ml/Chromium/ Copper/Manganese/ Seleni/Zn 0.5 ml/ Total Parenteral Nutrition/Amino Acids/Dextrose/ Fat Emulsion Intravenous 1,512 ml @ 63 mls/hr TPN CONT IV Last administered on 07/07/19at 22:25; Start 07/07/19 at 22:00; Stop 07/08/19 at 21:59; Status DC Sodium Chloride 1,000 ml @ 1,000 mls/hr Q1H PRN IV hypotension; Start 07/08/19 at 08:05; Stop 07/08/19 at 14:04; Status DC Albumin Human 200 ml @ 200 mls/hr 1X ONCE IV Last administered on 07/08/19at 08:57; Start 07/08/19 at 08:15; Stop 07/08/19 at 09:14; Status DC Diphenhydramine HCl (Benadryl) 25 mg 1X PRN PRN IV ITCHING; Start 07/08/19 at 08:15; Stop 07/09/19 at 08:14; Status DC Diphenhydramine HCl (Benadryl) 25 mg 1X PRN PRN IV ITCHING; Start 07/08/19 at 08:15; Stop 07/09/19 at 08:14; Status DC Sodium Chloride 1,000 ml @ 400 mls/hr Q2H30M PRN IV PATENCY; Start 07/08/19 at 08:05; Stop 07/08/19 at 20:04; Status DC Info (PHARMACY MONITORING -- do not chart) 1 each PRN DAILY PRN MC SEE COMMENTS; Start 07/08/19 at 08:15; Stop 07/12/19 at 07:57; Status DC Sodium Chloride 90 meq/Potassium Chloride 15 meq/ Potassium Phosphate 10 mmol/ Magnesium Sulfate 10 meq/Calcium Gluconate 20 meq/ Multivitamins 10 ml/Chromium/ Copper/Manganese/ Seleni/Zn 0.5 ml/ Total Parenteral Nutrition/Amino Acids/Dextrose/ Fat Emulsion Intravenous 1,512 ml @ 63 mls/hr TPN CONT IV Last administered on 07/08/19at 21:01; Start 07/08/19 at 22:00; Stop 07/09/19 at 21:59; Status DC Potassium Chloride/Water 100 ml @ 100 mls/hr 1X ONCE IV Last administered on 07/08/19at 14:09; Start 07/08/19 at 14:00; Stop 07/08/19 at 14:59; Status DC Benzocaine (Hurricaine One) 1 spray 1X ONCE MM Last administered on 07/08/19at 16:38; Start 07/08/19 at 14:30; Stop 07/08/19 at 14:31; Status DC Lidocaine HCl (Glydo (Lidocaine) Jelly) 1 ramu 1X ONCE MM Last administered on 07/08/19at 16:38; Start 07/08/19 at 14:30; Stop 07/08/19 at 14:31; Status DC Linezolid/Dextrose 300 ml @ 300 mls/hr Q12HR IV Last administered on 07/14/19at 21:04; Start 07/08/19 at 20:00; Stop 07/15/19 at 07:50; Status DC Acetaminophen (Tylenol) 650 mg PRN Q6HRS PRN PO MILD PAIN / TEMP; Start 07/09/19 at 03:30; Stop 07/09/19 at 03:36; Status DC Acetaminophen (Tylenol) 650 mg PRN Q6HRS PRN PEG MILD PAIN / TEMP Last administered on 08/04/19at 19:56; Start 07/09/19 at 03:36; Stop 08/31/19 at 10:25; Status DC Sodium Chloride 1,000 ml @ 1,000 mls/hr Q1H PRN IV hypotension; Start 07/09/19 at 07:50; Stop 07/09/19 at 13:49; Status DC Albumin Human 200 ml @ 200 mls/hr 1X PRN PRN IV Hypotension; Start 07/09/19 at 08:00; Stop 07/09/19 at 13:59; Status DC Sodium Chloride (Normal Saline Flush) 10 ml 1X PRN PRN IV AP catheter pack; Start 07/09/19 at 08:00; Stop 07/10/19 at 07:59; Status DC Sodium Chloride (Normal Saline Flush) 10 ml 1X PRN PRN IV 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; Start 07/09/19 at 08:00; Stop 07/10/19 at 07:59; Status DC Sodium Chloride 1,000 ml @ 400 mls/hr Q2H30M PRN IV PATENCY; Start 07/09/19 at 07:50; Stop 07/09/19 at 19:49; Status DC Info (PHARMACY MONITORING -- do not chart) 1 each PRN DAILY PRN MC SEE COMMENTS; Start 07/09/19 at 08:00; Status UNV Info (PHARMACY MONITORING -- do not chart) 1 each PRN DAILY PRN MC SEE COMMENTS; Start 07/09/19 at 08:00; Stop 07/11/19 at 08:25; Status DC Sodium Chloride 90 meq/Potassium Chloride 15 meq/ Potassium Phosphate 10 mmol/ Magnesium Sulfate 10 meq/Calcium Gluconate 20 meq/ Multivitamins 10 ml/Chromium/ Copper/Manganese/ Seleni/Zn 0.5 ml/ Total Parenteral Nutrition/Amino Acids/Dextrose/ Fat Emulsion Intravenous 1,512 ml @ 63 mls/hr TPN CONT IV Last administered on 07/09/19at 20:57; Start 07/09/19 at 22:00; Stop 07/10/19 at 21:59; Status DC Sodium Chloride 90 meq/Potassium Chloride 15 meq/ Potassium Phosphate 15 mmol/ Magnesium Sulfate 10 meq/Calcium Gluconate 20 meq/ Multivitamins 10 ml/Chromium/ Copper/Manganese/ Seleni/Zn 0.5 ml/ Total Parenteral Nutrition/Amino Acids/Dextrose/ Fat Emulsion Intravenous 1,512 ml @ 63 mls/hr TPN CONT IV ; Start 07/10/19 at 22:00; Stop 07/10/19 at 14:16; Status DC Sodium Chloride 90 meq/Potassium Chloride 15 meq/ Potassium Phosphate 15 mmol/ Magnesium Sulfate 10 meq/Calcium Gluconate 20 meq/ Multivitamins 10 ml/Chromium/ Copper/Manganese/ Seleni/Zn 0.5 ml/ Total Parenteral Nutrition/Amino Acids/Dex trose/ Fat Emulsion Intravenous 1,200 ml @ 50 mls/hr TPN CONT IV ; Start 07/10/19 at 22:00; Stop 07/10/19 at 14:17; Status DC Sodium Chloride 90 meq/Potassium Chloride 15 meq/ Potassium Phosphate 10 mmol/ Magnesium Sulfate 10 meq/Calcium Gluconate 20 meq/ Multivitamins 10 ml/Chromium/ Copper/Manganese/ Seleni/Zn 0.5 ml/ Total Parenteral Nutrition/Amino Acids/Dextrose/ Fat Emulsion Intravenous 1,200 ml @ 50 mls/hr TPN CONT IV Last administered on 07/10/19at 23:29; Start 07/10/19 at 22:00; Stop 07/11/19 at 21:59; Status DC Sodium Chloride 1,000 ml @ 1,000 mls/hr Q1H PRN IV hypotension; Start 07/11/19 at 07:28; Stop 07/11/19 at 13:27; Status DC Albumin Human 200 ml @ 200 mls/hr 1X ONCE IV Last administered on 07/11/19at 08:51; Start 07/11/19 at 07:30; Stop 07/11/19 at 08:29; Status DC Diphenhydramine HCl (Benadryl) 25 mg 1X PRN PRN IV ITCHING; Start 07/11/19 at 07:30; Stop 07/12/19 at 07:29; Status DC Diphenhydramine HCl (Benadryl) 25 mg 1X PRN PRN IV ITCHING; Start 07/11/19 at 07:30; Stop 07/12/19 at 07:29; Status DC Sodium Chloride 1,000 ml @ 400 mls/hr Q2H30M PRN IV PATENCY; Start 07/11/19 at 07:28; Stop 07/11/19 at 19:27; Status DC Info (PHARMACY MONITORING -- do not chart) 1 each PRN DAILY PRN MC SEE COMMENTS; Start 07/11/19 at 07:30; Stop 07/22/19 at 13:01; Status DC Metronidazole 100 ml @ 100 mls/hr Q6HRS IV Last administered on 07/27/19at 06:26; Start 07/11/19 at 08:30; Stop 07/27/19 at 09:58; Status DC Micafungin Sodium 100 mg/Dextrose 100 ml @ 100 mls/hr Q24H IV Last administered on 08/18/19at 08:18; Start 07/11/19 at 09:00; Stop 08/18/19 at 20:58; Status DC Propofol 0 ml @ As Directed STK-MED ONCE IV ; Start 07/11/19 at 07:53; Stop 07/11/19 at 07:53; Status DC Etomidate (Amidate) 20 mg STK-MED ONCE IV ; Start 07/11/19 at 07:53; Stop 07/11/19 at 07:54; Status DC Midazolam HCl (Versed) 5 mg STK-MED ONCE .ROUTE ; Start 07/11/19 at 07:57; Stop 07/11/19 at 07:57; Status DC Fentanyl Citrate 30 ml @ 0 mls/hr CONT PRN IV SEE PROTOCOL Last administered on 08/05/19at 06:12; Start 07/11/19 at 08:15; Stop 08/05/19 at 09:19; Status DC Artificial Tears (Artificial Tears) 1 drop PRN Q1HR PRN OU DRY EYE, 1st choice; Start 07/11/19 at 08:15; Stop 08/17/19 at 05:31; Status DC Midazolam HCl 50 mg/Sodium Chloride 50 ml @ 0 mls/hr CONT PRN IV SEE PROTOCOL Last administered on 07/14/19at 22:39; Start 07/11/19 at 08:15; Stop 07/16/19 at 15:59; Status DC Etomidate (Amidate) 8 mg 1X ONCE IV Last administered on 07/11/19at 08:33; Start 07/11/19 at 08:30; Stop 07/11/19 at 08:31; Status DC Succinylcholine Chloride (Anectine) 120 mg 1X ONCE IV Last administered on 07/11/19at 08:34; Start 07/11/19 at 08:30; Stop 07/11/19 at 08:31; Status DC Midazolam HCl (Versed) 5 mg 1X ONCE IV ; Start 07/11/19 at 08:30; Stop 07/11/19 at 08:31; Status DC Potassium Chloride 15 meq/ Bicarbonate Dialysis Soln w/ out KCl 5,007.5 ml @ 1,000 mls/ hr Q5H1M IV Last administered on 07/12/19at 11:11; Start 07/11/19 at 12:00; Stop 07/12/19 at 11:15; Status DC Potassium Chloride 15 meq/ Bicarbonate Dialysis Soln w/ out KCl 5,007.5 ml @ 1,000 mls/ hr Q5H1M IV Last administered on 07/12/19at 11:12; Start 07/11/19 at 12:00; Stop 07/12/19 at 11:17; Status DC Potassium Chloride 15 meq/ Bicarbonate Dialysis Soln w/ out KCl 5,007.5 ml @ 1,000 mls/ hr Q5H1M IV Last administered on 07/12/19at 11:11; Start 07/11/19 at 12:00; Stop 07/12/19 at 11:19; Status DC Sodium Chloride 90 meq/Potassium Chloride 15 meq/ Potassium Phosphate 10 mmol/ Magnesium Sulfate 10 meq/Calcium Gluconate 20 meq/ Multivitamins 10 ml/Chromium/ Copper/Manganese/ Seleni/Zn 0.5 ml/ Total Parenteral Nutrition/Amino Acids/Dextrose/ Fat Emulsion Intravenous 1,400 ml @ 58.333 mls/ hr TPN CONT IV Last administered on 07/11/19at 21:42; Start 07/11/19 at 22:00; Stop 07/12/19 at 21:59; Status DC Heparin Sodium (Porcine) (Heparin Sodium) 5,000 unit Q8HRS SQ Last administered on 07/16/19at 05:55; Start 07/11/19 at 15:00; Stop 07/16/19 at 13:28; Status DC Meropenem 500 mg/ Sodium Chloride 50 ml @ 100 mls/hr Q6HRS IV Last administered on 07/13/19at 06:00; Start 07/12/19 at 09:00; Stop 07/13/19 at 07:29; Status DC Potassium Phosphate 20 mmol/ Sodium Chloride 106.6667 ml @ 51.667 m... 1X ONCE IV Last administered on 07/12/19at 11:22; Start 07/12/19 at 10:15; Stop 07/12/19 at 12:18; Status DC Acetaminophen (Tylenol Supp) 650 mg PRN Q6HRS PRN NE MILD PAIN / TEMP > 100.3'F Last administered on 10/17/19at 18:16; Start 07/12/19 at 10:30 Potassium Chloride/Water 100 ml @ 100 mls/hr Q1H IV Last administered on 07/12/19at 12:12; Start 07/12/19 at 11:00; Stop 07/12/19 at 12:59; Status DC Potassium Chloride 20 meq/ Bicarbonate Dialysis Soln w/ out KCl 5,010 ml @ 1,000 mls/hr Q5H1M IV Last administered on 07/13/19at 08:48; Start 07/12/19 at 12:00; Stop 07/13/19 at 13:03; Status DC Potassium Chloride 20 meq/ Bicarbonate Dialysis Soln w/ out KCl 5,010 ml @ 1,000 mls/hr Q5H1M IV Last administered on 07/17/19at 14:52; Start 07/12/19 at 11:30; Stop 07/17/19 at 19:59; Status DC Potassium Chloride 20 meq/ Bicarbonate Dialysis Soln w/ out KCl 5,010 ml @ 1,000 mls/hr Q5H1M IV Last administered on 07/17/19at 14:53; Start 07/12/19 at 11:30; Stop 07/17/19 at 19:59; Status DC Sodium Chloride 90 meq/Potassium Chloride 15 meq/ Potassium Phosphate 15 mmol/ Magnesium Sulfate 10 meq/Calcium Gluconate 15 meq/ Multivitamins 10 ml/Chromium/ Copper/Manganese/ Seleni/Zn 0.5 ml/ Total Parenteral Nutrition/Amino Acids/Dextrose/ Fat Emulsion Intravenous 1,400 ml @ 58.333 mls/ hr TPN CONT IV Last administered on 07/12/19at 22:17; Start 07/12/19 at 22:00; Stop 07/13/19 at 21:59; Status DC Cefepime HCl (Maxipime) 2 gm Q12HR IVP Last administered on 07/26/19at 20:56; Start 07/13/19 at 09:00; Stop 07/27/19 at 09:58; Status DC Daptomycin 500 mg/ Sodium Chloride 50 ml @ 100 mls/hr Q48H IV Last administered on 07/29/19at 09:57; Start 07/13/19 at 08:30; Stop 07/29/19 at 10:07; Status DC Lidocaine HCl (Buffered Lidocaine 1%) 3 ml 1X ONCE INJ Last administered on 07/13/19at 10:27; Start 07/13/19 at 10:30; Stop 07/13/19 at 10:31; Status DC Potassium Phosphate 20 mmol/ Sodium Chloride 106.6667 ml @ 51.667 m... 1X ONCE IV Last administered on 07/13/19at 12:51; Start 07/13/19 at 13:00; Stop 07/13/19 at 15:03; Status DC Sodium Chloride 90 meq/Potassium Chloride 15 meq/ Potassium Phosphate 18 mmol/ Magnesium Sulfate 8 meq/Calcium Gluconate 15 meq/ Multivitamins 10 ml/Chromium/ Copper/Manganese/ Seleni/Zn 0.5 ml/ Total Parenteral Nutrition/Amino Acids/Dextrose/ Fat Emulsion Intravenous 1,400 ml @ 58.333 mls/ hr TPN CONT IV Last administered on 07/13/19at 22:16; Start 07/13/19 at 22:00; Stop 07/14/19 at 21:59; Status DC Potassium Chloride 20 meq/ Bicarbonate Dialysis Soln w/ out KCl 5,010 ml @ 1,000 mls/hr Q5H1M IV Last administered on 07/17/19at 14:54; Start 07/13/19 at 16:00; Stop 07/17/19 at 19:59; Status DC Multi-Ingred Cream/Lotion/Oil/ Oint (Artificial Tears Eye Ointment) 1 ramu PRN Q1HR PRN OU DRY EYE, 2nd choice Last administered on 08/01/19at 08:19; Start 07/13/19 at 17:30; Stop 09/21/19 at 14:39; Status DC Sodium Chloride 90 meq/Potassium Chloride 15 meq/ Potassium Phosphate 18 mmol/ Magnesium Sulfate 8 meq/Calcium Gluconate 15 meq/ Multivitamins 10 ml/Chromium/ Copper/Manganese/ Seleni/Zn 0.5 ml/ Total Parenteral Nutrition/Amino Acids/Dex trose/ Fat Emulsion Intravenous 1,400 ml @ 58.333 mls/ hr TPN CONT IV Last administered on 07/14/19at 22:00; Start 07/14/19 at 22:00; Stop 07/15/19 at 21:59; Status DC Albumin Human 500 ml @ 125 mls/hr 1X ONCE IV ; Start 07/14/19 at 14:15; Stop 07/14/19 at 18:14; Status DC Sodium Chloride 90 meq/Potassium Chloride 15 meq/ Potassium Phosphate 18 mmol/ Magnesium Sulfate 8 meq/Calcium Gluconate 15 meq/ Multivitamins 10 ml/Chromium/ Copper/Manganese/ Seleni/Zn 0.5 ml/ Insulin Human Regular 10 unit/ Total Parenteral Nutrition/Amino Acids/Dextrose/ Fat Emulsion Intravenous 1,400 ml @ 58.333 mls/ hr TPN CONT IV Last administered on 07/15/19at 21:43; Start 07/15/19 at 22:00; Stop 07/16/19 at 21:59; Status DC Lidocaine HCl (Buffered Lidocaine 1%) 3 ml STK-MED ONCE .ROUTE ; Start 07/13/19 at 10:00; Stop 07/15/19 at 13:57; Status DC Midazolam HCl 100 mg/Sodium Chloride 100 ml @ 7 mls/hr CONT PRN IV SEE PROTOCOL Last administered on 07/27/19at 15:35; Start 07/16/19 at 16:00; Stop 09/21/19 at 14:38; Status DC Sodium Chloride 90 meq/Potassium Chloride 15 meq/ Potassium Phosphate 18 mmol/ Magnesium Sulfate 8 meq/Calcium Gluconate 15 meq/ Multivitamins 10 ml/Chromium/ Copper/Manganese/ Seleni/Zn 0.5 ml/ Insulin Human Regular 15 unit/ Total Parenteral Nutrition/Amino Acids/Dextrose/ Fat Emulsion Intravenous 1,400 ml @ 58.333 mls/ hr TPN CONT IV Last administered on 07/16/19at 20:34; Start at 22:00; Stop 07/17/19 at 21:59; Status DC Info (Icu Electrolyte Protocol) 1 ea CONT PRN PRN MC PER PROTOCOL; Start at 13:15 Sodium Chloride 90 meq/Potassium Chloride 15 meq/ Potassium Phosphate 18 mmol/ Magnesium Sulfate 8 meq/Calcium Gluconate 15 meq/ Multivitamins 10 ml/Chromium/ Copper/Manganese/ Seleni/Zn 0.5 ml/ Insulin Human Regular 15 unit/ Total Parenteral Nutrition/Amino Acids/Dextrose/ Fat Emulsion Intravenous 1,400 ml @ 58.333 mls/ hr TPN CONT IV Last administered on 07/17/19at 22:05; Start 07/17/19 at 22:00; Stop 07/18/19 at 21:59; Status DC Potassium Chloride 15 meq/ Bicarbonate Dialysis Soln w/ out KCl 5,007.5 ml @ 1,000 mls/ hr Q5H1M IV Last administered on 07/20/19at 18:14; Start 07/17/19 at 20:00; Stop 07/21/19 at 13:08; Status DC Potassium Chloride 15 meq/ Bicarbonate Dialysis Soln w/ out KCl 5,007.5 ml @ 1,000 mls/ hr Q5H1M IV Last administered on 07/20/19at 18:14; Start 07/17/19 at 20:00; Stop 07/21/19 at 13:08; Status DC Potassium Chloride 15 meq/ Bicarbonate Dialysis Soln w/ out KCl 5,007.5 ml @ 1,000 mls/ hr Q5H1M IV Last administered on 07/20/19at 18:14; Start 07/17/19 at 20:00; Stop 07/21/19 at 13:08; Status DC Iohexol (Omnipaque 240 Mg/ml) 30 ml 1X ONCE PO Last administered on 07/18/19at 11:30; Start 07/18/19 at 11:30; Stop 07/18/19 at 11:33; Status DC Info (CONTRAST GIVEN -- Rx MONITORING) 1 each PRN DAILY PRN MC SEE COMMENTS; Start 07/18/19 at 11:45; Stop 07/20/19 at 11:44; Status DC Sodium Chloride 90 meq/Potassium Chloride 15 meq/ Potassium Phosphate 18 mmol/ Magnesium Sulfate 8 meq/Calcium Gluconate 15 meq/ Multivitamins 10 ml/Chromium/ Copper/Manganese/ Seleni/Zn 0.5 ml/ Insulin Human Regular 15 unit/ Total Parenteral Nutrition/Amino Acids/Dextrose/ Fat Emulsion Intravenous 1,400 ml @ 58.333 mls/ hr TPN CONT IV Last administered on 07/18/19at 21:47; Start 07/18/19 at 22:00; Stop 07/19/19 at 21:59; Status DC Sodium Chloride 90 meq/Potassium Chloride 15 meq/ Potassium Phosphate 18 mmol/ Magnesium Sulfate 8 meq/Calcium Gluconate 15 meq/ Multivitamins 10 ml/Chromium/ Copper/Manganese/ Seleni/Zn 0.5 ml/ Insulin Human Regular 20 unit/ Total Parenteral Nutrition/Amino Acids/Dextrose/ Fat Emulsion Intravenous 1,400 ml @ 58.333 mls/ hr TPN CONT IV Last administered on 07/19/19at 21:36; Start 07/19/19 at 22:00; Stop 07/20/19 at 21:59; Status DC Alteplase, Recombinant (Cathflo For Central Catheter Clearance) 1 mg 1X ONCE INT CAT Last administered on 07/19/19at 20:03; Start 07/19/19 at 19:30; Stop 07/19/19 at 19:46; Status DC Alteplase, Recombinant (Cathflo For Central Catheter Clearance) 1 mg 1X ONCE INT CAT Last administered on 07/19/19at 22:05; Start 07/19/19 at 22:00; Stop 07/19/19 at 22:01; Status DC Sodium Chloride 90 meq/Potassium Chloride 15 meq/ Potassium Phosphate 18 mmol/ Magnesium Sulfate 8 meq/Calcium Gluconate 15 meq/ Multivitamins 10 ml/Chromium/ Copper/Manganese/ Seleni/Zn 0.5 ml/ Insulin Human Regular 20 unit/ Total Pare nteral Nutrition/Amino Acids/Dextrose/ Fat Emulsion Intravenous 1,400 ml @ 58.333 mls/ hr TPN CONT IV Last administered on 07/20/19at 21:30; Start 07/20/19 at 22:00; Stop 07/21/19 at 21:59; Status DC Dexmedetomidine HCl 400 mcg/ Sodium Chloride 100 ml @ 0 mls/hr CONT PRN IV ANXIETY / AGITATION Last administered on 09/17/19at 12:57; Start 07/21/19 at 08:15; Stop 09/17/19 at 18:31; Status DC Sodium Chloride 500 ml @ 500 mls/hr 1X PRN PRN IV ELEVATED BP, SEE COMMENTS; Start 07/21/19 at 08:15 Atropine Sulfate (ATROPINE 0.5mg SYRINGE) 0.5 mg PRN Q5MIN PRN IV SEE COMMENTS; Start 07/21/19 at 08:15 Furosemide (Lasix) 20 mg 1X ONCE IVP Last administered on 07/21/19at 08:19; Start 07/21/19 at 08:15; Stop 07/21/19 at 08:16; Status DC Lidocaine HCl (Buffered Lidocaine 1%) 3 ml STK-MED ONCE .ROUTE ; Start 07/21/19 at 08:39; Stop 07/21/19 at 08:39; Status DC Lidocaine HCl (Buffered Lidocaine 1%) 6 ml 1X ONCE INJ Last administered on 07/21/19at 09:05; Start 07/21/19 at 09:00; Stop 07/21/19 at 09:06; Status DC Sodium Chloride 90 meq/Potassium Chloride 15 meq/ Potassium Phosphate 18 mmol/ Magnesium Sulfate 8 meq/Calcium Gluconate 15 meq/ Multivitamins 10 ml/Chromium/ Copper/Manganese/ Seleni/Zn 0.5 ml/ Insulin Human Regular 20 unit/ Total Parenteral Nutrition/Amino Acids/Dextrose/ Fat Emulsion Intravenous 1,400 ml @ 58.333 mls/ hr TPN CONT IV Last administered on 07/21/19at 22:45; Start 07/21/19 at 22:00; Stop 07/22/19 at 21:59; Status DC Sodium Chloride 1,000 ml @ 1,000 mls/hr Q1H PRN IV hypotension; Start 07/22/19 at 07:30; Stop 07/22/19 at 13:29; Status DC Albumin Human 200 ml @ 200 mls/hr 1X PRN PRN IV Hypotension Last administered on 07/22/19at 09:36; Start 07/22/19 at 07:30; Stop 07/22/19 at 13:29; Status DC Sodium Chloride (Normal Saline Flush) 10 ml 1X PRN PRN IV AP catheter pack; Start 07/22/19 at 07:30; Stop 07/22/19 at 21:29; Status DC Sodium Chloride (Normal Saline Flush) 10 ml 1X PRN PRN IV 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; Start 07/22/19 at 07:30; Stop 07/23/19 at 07:29; Status DC Sodium Chloride 1,000 ml @ 400 mls/hr Q2H30M PRN IV PATENCY; Start 07/22/19 at 07:30; Stop 07/22/19 at 19:29; Status DC Info (PHARMACY MONITORING -- do not chart) 1 each PRN DAILY PRN MC SEE COMMENTS; Start 07/22/19 at 07:30; Stop 07/22/19 at 13:02; Status DC Info (PHARMACY MONITORING -- do not chart) 1 each PRN DAILY PRN MC SEE COMMENTS; Start 07/22/19 at 07:30; Stop 07/24/19 at 12:45; Status DC Sodium Chloride 90 meq/Potassium Chloride 15 meq/ Potassium Phosphate 10 mmol/ Magnesium Sulfate 8 meq/Calcium Gluconate 15 meq/ Multivitamins 10 ml/Chromium/ Copper/Manganese/ Seleni/Zn 0.5 ml/ Insulin Human Regular 25 unit/ Total Parenteral Nutrition/Amino Acids/Dextrose/ Fat Emulsion Intravenous 1,400 ml @ 58.333 mls/ hr TPN CONT IV Last administered on 07/22/19at 22:19; Start 07/22/19 at 22:00; Stop 07/23/19 at 21:59; Status DC Heparin Sodium (Porcine) (Heparin Sodium) 5,000 unit Q12HR SQ Last administered on 08/14/19at 08:59; Start 07/22/19 at 21:00; Stop 08/14/19 at 10:05; Status DC Ondansetron HCl (Zofran) 4 mg PRN Q6HRS PRN IV NAUSEA/VOMITING; Start 07/25/19 at 07:00; Stop 07/26/19 at 06:59; Status DC Fentanyl Citrate (Fentanyl 2ml Vial) 25 mcg PRN Q5MIN PRN IV MILD PAIN 1-3; Start 07/25/19 at 07:00; Stop 07/26/19 at 06:59; Status DC Fentanyl Citrate (Fentanyl 2ml Vial) 50 mcg PRN Q5MIN PRN IV MODERATE TO SEVERE PAIN; Start 07/25/19 at 07:00; Stop 07/26/19 at 06:59; Status DC Ringer's Solution 1,000 ml @ 30 mls/hr Q24H IV ; Start 07/25/19 at 07:00; Stop 07/25/19 at 18:59; Status DC Lidocaine HCl (Xylocaine-Mpf 1% 2ml Vial) 2 ml PRN 1X PRN ID PRIOR TO IV START; Start 07/25/19 at 07:00; Stop 07/26/19 at 06:59; Status DC Prochlorperazine Edisylate (Compazine) 5 mg PACU PRN PRN IV NAUSEA, MRX1; Start 07/25/19 at 07:00; Stop 07/26/19 at 06:59; Status DC Sodium Chloride 1,000 ml @ 1,000 mls/hr Q1H PRN IV hypotension; Start 07/23/19 at 09:10; Stop 07/23/19 at 15:09; Status DC Albumin Human 200 ml @ 200 mls/hr 1X PRN PRN IV Hypotension Last administered on 07/23/19at 10:10; Start 07/23/19 at 09:15; Stop 07/23/19 at 15:14; Status DC Sodium Chloride 1,000 ml @ 400 mls/hr Q2H30M PRN IV PATENCY; Start 07/23/19 at 09:10; Stop 07/23/19 at 21:09; Status DC Info (PHARMACY MONITORING -- do not chart) 1 each PRN DAILY PRN MC SEE COMMENTS; Start 07/23/19 at 09:15; Stop 07/24/19 at 12:45; Status DC Info (PHARMACY MONITORING -- do not chart) 1 each PRN DAILY PRN MC SEE COMMENTS; Start 07/23/19 at 09:15; Stop 07/24/19 at 12:45; Status DC Sodium Chloride 90 meq/Potassium Chloride 15 meq/ Potassium Phosphate 10 mmol/ Magnesium Sulfate 8 meq/Calcium Gluconate 15 meq/ Multivitamins 10 ml/Chromium/ Copper/Manganese/ Seleni/Zn 0.5 ml/ Insulin Human Regular 25 unit/ Total Parenteral Nutrition/Amino Acids/Dextrose/ Fat Emulsion Intravenous 1,400 ml @ 58.333 mls/ hr TPN CONT IV Last administered on 07/23/19at 22:10; Start 07/23/19 at 22:00; Stop 07/24/19 at 21:59; Status DC Magnesium Sulfate 50 ml @ 25 mls/hr PRN DAILY PRN IV for Mag < 1.7 on am labs Last administered on 10/06/19at 10:57; Start 07/24/19 at 09:15 Sodium Chloride 90 meq/Potassium Chloride 15 meq/ Potassium Phosphate 10 mmol/ Magnesium Sulfate 8 meq/Calcium Gluconate 15 meq/ Multivitamins 10 ml/Chromium/ Copper/Manganese/ Seleni/Zn 0.5 ml/ Insulin Human Regular 25 unit/ Total Parenteral Nutrition/Amino Acids/Dextrose/ Fat Emulsion Intravenous 1,400 ml @ 58.333 mls/ hr TPN CONT IV Last administered on 07/24/19at 21:20; Start 07/24/19 at 22:00; Stop 07/25/19 at 21:59; Status DC Sodium Chloride 1,000 ml @ 1,000 mls/hr Q1H PRN IV hypotension; Start 07/24/19 at 12:23; Stop 07/24/19 at 18:22; Status DC Albumin Human 200 ml @ 200 mls/hr 1X ONCE IV Last administered on 07/24/19at 13:34; Start 07/24/19 at 12:30; Stop 07/24/19 at 13:29; Status DC Diphenhydramine HCl (Benadryl) 25 mg 1X PRN PRN IV ITCHING; Start 07/24/19 at 12:30; Stop 07/25/19 at 12:29; Status DC Diphenhydramine HCl (Benadryl) 25 mg 1X PRN PRN IV ITCHING; Start 07/24/19 at 12:30; Stop 07/25/19 at 12:29; Status DC Info (PHARMACY MONITORING -- do not chart) 1 each PRN DAILY PRN MC SEE COMMENTS; Start 07/24/19 at 12:30; Status Cancel Bupivacaine HCl/ Epinephrine Bitart (Sensorcain-Epi 0.5%-1:[id number] Mpf) 30 ml STK-MED ONCE .ROUTE Last administered on 07/25/19at 11:44; Start 07/25/19 at 11:00; Stop 07/25/19 at 11:01; Status DC Cellulose (Surgicel Fibrillar 1x2) 1 each STK-MED ONCE .ROUTE ; Start 07/25/19 at 11:00; Stop 07/25/19 at 11:01; Status DC Sodium Chloride 90 meq/Potassium Chloride 15 meq/ Potassium Phosphate 10 mmol/ Magnesium Sulfate 12 meq/Calcium Gluconate 15 meq/ Multivitamins 10 ml/Chromium/ Copper/Manganese/ Seleni/Zn 0.5 ml/ Insulin Human Regular 25 unit/ Total Parenteral Nutrition/Amino Acids/Dextrose/ Fat Emulsion Intravenous 1,400 ml @ 58.333 mls/ hr TPN CONT IV Last administered on 07/25/19at 22:24; Start 07/25/19 at 22:00; Stop 07/26/19 at 21:59; Status DC Propofol 20 ml @ As Directed STK-MED ONCE IV ; Start 07/25/19 at 11:07; Stop 07/25/19 at 11:07; Status DC Cellulose (Surgicel Hemostat 4x8) 1 each STK-MED ONCE .ROUTE Last administered on 07/25/19at 11:44; Start 07/25/19 at 11:55; Stop 07/25/19 at 11:56; Status DC Sevoflurane (Ultane) 60 ml STK-MED ONCE IH ; Start 07/25/19 at 12:46; Stop 07/25/19 at 12:46; Status DC Sodium Chloride 1,000 ml @ 1,000 mls/hr Q1H PRN IV hypotension; Start 07/25/19 at 13:51; Stop 07/25/19 at 19:50; Status DC Albumin Human 200 ml @ 200 mls/hr 1X PRN PRN IV Hypotension Last administered on 07/25/19at 14:51; Start 07/25/19 at 14:00; Stop 07/25/19 at 19:59; Status DC Diphenhydramine HCl (Benadryl) 25 mg 1X PRN PRN IV ITCHING; Start 07/25/19 at 14:00; Stop 07/26/19 at 13:59; Status DC Diphenhydramine HCl (Benadryl) 25 mg 1X PRN PRN IV ITCHING; Start 07/25/19 at 14:00; Stop 07/26/19 at 13:59; Status DC Sodium Chloride 1,000 ml @ 400 mls/hr Q2H30M PRN IV PATENCY; Start 07/25/19 at 13:51; Stop 07/26/19 at 01:50; Status DC Info (PHARMACY MONITORING -- do not chart) 1 each PRN DAILY PRN MC SEE COMMENTS; Start 07/25/19 at 14:00; Stop 07/28/19 at 08:16; Status DC Heparin Sodium (Porcine) (Hep Lock Adult) 500 unit STK-MED ONCE IVP ; Start 07/26/19 at 09:29; Stop 07/26/19 at 09:30; Status DC Sodium Chloride 1,000 ml @ 1,000 mls/hr Q1H PRN IV hypotension; Start 07/26/19 at 10:43; Stop 07/26/19 at 16:42; Status DC Sodium Chloride 1,000 ml @ 400 mls/hr Q2H30M PRN IV PATENCY; Start 07/26/19 at 10:43; Stop 07/26/19 at 22:42; Status DC Info (PHARMACY MONITORING -- do not chart) 1 each PRN DAILY PRN MC SEE COMMENTS; Start 07/26/19 at 10:45; Status UNV Info (PHARMACY MONITORING -- do not chart) 1 each PRN DAILY PRN MC SEE COMMENTS; Start 07/26/19 at 10:45; Status UNV Sodium Chloride 90 meq/Potassium Chloride 15 meq/ Magnesium Sulfate 12 meq/Calcium Gluconate 15 meq/ Multivitamins 10 ml/Chromium/ Copper/Manganese/ Seleni/Zn 0.5 ml/ Insulin Human Regular 25 unit/ Total Parenteral Nutrition/Amino Acids/Dextrose/ Fat Emulsion Intravenous 1,400 ml @ 58.333 mls/ hr TPN CONT IV Last administered on 07/26/19at 22:13; Start 07/26/19 at 22:00; Stop 07/27/19 at 21:59; Status DC Sodium Chloride 1,000 ml @ 1,000 mls/hr Q1H PRN IV hypotension; Start 07/27/19 at 07:50; Stop 07/27/19 at 13:49; Status DC Albumin Human 200 ml @ 200 mls/hr 1X ONCE IV ; Start 07/27/19 at 08:00; Stop 07/27/19 at 08:53; Status DC Diphenhydramine HCl (Benadryl) 25 mg 1X PRN PRN IV ITCHING; Start 07/27/19 at 08:00; Stop 07/28/19 at 07:59; Status DC Diphenhydramine HCl (Benadryl) 25 mg 1X PRN PRN IV ITCHING; Start 07/27/19 at 08:00; Stop 07/28/19 at 07:59; Status DC Info (PHARMACY MONITORING -- do not chart) 1 each PRN DAILY PRN MC SEE COMMENTS; Start 07/27/19 at 08:00; Stop 07/28/19 at 08:16; Status DC Albumin Human 50 ml @ 50 mls/hr 1X ONCE IV ; Start 07/27/19 at 08:53; Stop 07/27/19 at 08:56; Status DC Albumin Human 200 ml @ 50 mls/hr PRN 1X PRN IV HYPOTENSION Last administered on 08/02/19at 11:54; Start 07/27/19 at 09:00; Stop 09/08/19 at 11:14; Status DC Meropenem 500 mg/ Sodium Chloride 50 ml @ 100 mls/hr Q12H IV Last administered on 08/16/19at 10:45; Start 07/27/19 at 10:00; Stop 08/16/19 at 12:37; Status DC Sodium Chloride 90 meq/Magnesium Sulfate 12 meq/ Calcium Gluconate 15 meq/ Multivitamins 10 ml/Chromium/ Copper/Manganese/ Seleni/Zn 0.5 ml/ Insulin Human Regular 25 unit/ Total Parenteral Nutrition/Amino Acids/Dextrose/ Fat Emulsion Intravenous 1,400 ml @ 58.333 mls/ hr TPN CONT IV Last administered on 07/27/19at 21:41; Start 07/27/19 at 22:00; Stop 07/28/19 at 21:59; Status DC Sodium Chloride 1,000 ml @ 1,000 mls/hr Q1H PRN IV hypotension; Start 07/28/19 at 07:58; Stop 07/28/19 at 13:57; Status DC Albumin Human 200 ml @ 200 mls/hr 1X PRN PRN IV Hypotension Last administered on 07/28/19at 09:30; Start 07/28/19 at 08:00; Stop 07/28/19 at 13:59; Status DC Sodium Chloride 1,000 ml @ 400 mls/hr Q2H30M PRN IV PATENCY; Start 07/28/19 at 07:58; Stop 07/28/19 at 19:57; Status DC Info (PHARMACY MONITORING -- do not chart) 1 each PRN DAILY PRN MC SEE COMMENTS; Start 07/28/19 at 08:00; Status Cancel Info (PHARMACY MONITORING -- do not chart) 1 each PRN DAILY PRN MC SEE COM MENTS; Start 07/28/19 at 08:15; Status UNV Sodium Chloride 90 meq/Potassium Phosphate 5 mmol/ Magnesium Sulfate 12 meq/Calcium Gluconate 15 meq/ Multivitamins 10 ml/Chromium/ Copper/Manganese/ Seleni/Zn 0.5 ml/ Insulin Human Regular 30 unit/ Total Parenteral Nutrition/Amino Acids/Dextrose/ Fat Emulsion Intravenous 1,400 ml @ 58.333 mls/ hr TPN CONT IV Last administered on 07/28/19at 22:08; Start 07/28/19 at 22:00; Stop 07/29/19 at 21:59; Status DC Linezolid/Dextrose 300 ml @ 300 mls/hr Q12HR IV Last administered on 08/08/19at 20:40; Start 07/29/19 at 11:00; Stop 08/09/19 at 08:10; Status DC Sodium Chloride 90 meq/Potassium Phosphate 15 mmol/ Magnesium Sulfate 12 meq/Calcium Gluconate 15 meq/ Multivitamins 10 ml/Chromium/ Copper/Manganese/ Seleni/Zn 0.5 ml/ Insulin Human Regular 30 unit/ Total Parenteral Nutrition/Amino Acids/Dextrose/ Fat Emulsion Intravenous 1,400 ml @ 58.333 mls/ hr TPN CONT IV Last administered on 07/29/19at 21:49; Start 07/29/19 at 22:00; Stop 07/30/19 at 21:59; Status DC Sodium Chloride 90 meq/Potassium Phosphate 15 mmol/ Magnesium Sulfate 12 meq/Calcium Gluconate 15 meq/ Multivitamins 10 ml/Chromium/ Copper/Manganese/ Seleni/Zn 0.5 ml/ Insulin Human Regular 40 unit/ Total Parenteral Nutrition/Amino Acids/Dextrose/ Fat Emulsion Intravenous 1,400 ml @ 58.333 mls/ hr TPN CONT IV Last administered on 07/30/19at 21:21; Start 07/30/19 at 22:00; Stop 07/31/19 at 21:59; Status DC Sodium Chloride 1,000 ml @ 1,000 mls/hr Q1H PRN IV hypotension; Start 07/30/19 at 13:26; Stop 07/30/19 at 19:25; Status DC Albumin Human 200 ml @ 200 mls/hr 1X PRN PRN IV Hypotension Last administered on 07/30/19at 15:00; Start 07/30/19 at 13:30; Stop 07/30/19 at 19:29; Status DC Sodium Chloride (Normal Saline Flush) 10 ml 1X PRN PRN IV AP catheter pack; St art 07/30/19 at 13:30; Stop 07/31/19 at 13:29; Status DC Sodium Chloride (Normal Saline Flush) 10 ml 1X PRN PRN IV 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; Start 07/30/19 at 13:30; Stop 07/31/19 at 13:29; Status DC Sodium Chloride 1,000 ml @ 400 mls/hr Q2H30M PRN IV PATENCY; Start 07/30/19 at 13:26; Stop 07/31/19 at 01:25; Status DC Info (PHARMACY MONITORING -- do not chart) 1 each PRN DAILY PRN MC SEE COMMENTS; Start 07/30/19 at 13:30; Stop 07/30/19 at 13:33; Status DC Info (PHARMACY MONITORING -- do not chart) 1 each PRN DAILY PRN MC SEE COMMENTS; Start 07/30/19 at 13:30; Stop 07/30/19 at 13:34; Status DC Sodium Chloride 90 meq/Potassium Phosphate 19 mmol/ Magnesium Sulfate 12 meq/Calcium Gluconate 15 meq/ Multivitamins 10 ml/Chromium/ Copper/Manganese/ Seleni/Zn 0.5 ml/ Insulin Human Regular 40 unit/ Total Parenteral Nutrition/Amino Acids/Dextrose/ Fat Emulsion Intravenous 1,400 ml @ 58.333 mls/ hr TPN CONT IV Last administered on 07/31/19at 21:54; Start 07/31/19 at 22:00; Stop 08/01/19 at 21:59; Status DC Sodium Chloride 1,000 ml @ 1,000 mls/hr Q1H PRN IV hypotension; Start 08/01/19 at 09:35; Stop 08/01/19 at 15:34; Status DC Albumin Human 200 ml @ 200 mls/hr 1X PRN PRN IV Hypotension; Start 08/01/19 at 09:45; Stop 08/01/19 at 15:44; Status DC Diphenhydramine HCl (Benadryl) 25 mg 1X PRN PRN IV ITCHING; Start 08/01/19 at 09:45; Stop 08/02/19 at 09:44; Status DC Diphenhydramine HCl (Benadryl) 25 mg 1X PRN PRN IV ITCHING; Start 08/01/19 at 09:45; Stop 08/02/19 at 09:44; Status DC Sodium Chloride 1,000 ml @ 400 mls/hr Q2H30M PRN IV PATENCY; Start 08/01/19 at 09:35; Stop 08/01/19 at 21:34; Status DC Info (PHARMACY MONITORING -- do not chart) 1 each PRN DAILY PRN MC SEE COMMENTS; Start 08/01/19 at 09:45; Status Cancel Sodium Chloride 100 meq/Potassium Phosphate 19 mmol/ Magnesium Sulfate 12 meq/Calcium Gluconate 15 meq/ Multivitamins 10 ml/Chromium/ Copper/Manganese/ Seleni/Zn 0.5 ml/ Insulin Human Regular 40 unit/ Potassium Chloride 20 meq/ Total Parenteral Nutrition/Amino Acids/Dextrose/ Fat Emulsion Intravenous 1,400 ml @ 58.333 mls/ hr TPN CONT IV Last administered on 08/01/19at 22:02; Start 08/01/19 at 22:00; Stop 08/02/19 at 21:59; Status DC Furosemide (Lasix) 40 mg 1X ONCE IVP Last administered on 08/01/19at 14:39; Start 08/01/19 at 14:30; Stop 08/01/19 at 14:31; Status DC Metronidazole 100 ml @ 100 mls/hr Q8HRS IV Last administered on 08/09/19at 06:04; Start 08/02/19 at 10:00; Stop 08/09/19 at 08:10; Status DC Sodium Chloride 1,000 ml @ 1,000 mls/hr Q1H PRN IV hypotension; Start 08/02/19 at 08:00; Stop 08/02/19 at 13:59; Status DC Albumin Human 200 ml @ 200 mls/hr 1X PRN PRN IV Hypotension; Start 08/02/19 at 08:00; Stop 08/02/19 at 13:59; Status DC Sodium Chloride 1,000 ml @ 400 mls/hr Q2H30M PRN IV PATENCY; Start 08/02/19 at 08:00; Stop 08/02/19 at 19:59; Status DC Info (PHARMACY MONITORING -- do not chart) 1 each PRN DAILY PRN MC SEE COMMENTS; Start 08/02/19 at 11:30; Status UNV Info (PHARMACY MONITORING -- do not chart) 1 each PRN DAILY PRN MC SEE COMMENTS; Start 08/02/19 at 11:30; Stop 08/04/19 at 12:13; Status DC Sodium Chloride 100 meq/Potassium Phosphate 19 mmol/ Magnesium Sulfate 12 meq/Calcium Gluconate 15 meq/ Multivitamins 10 ml/Chromium/ Copper/Manganese/ Seleni/Zn 0.5 ml/ Insulin Human Regular 40 unit/ Potassium Chloride 20 meq/ T otal Parenteral Nutrition/Amino Acids/Dextrose/ Fat Emulsion Intravenous 1,400 ml @ 58.333 mls/ hr TPN CONT IV Last administered on 08/02/19at 21:52; Start 08/02/19 at 22:00; Stop 08/03/19 at 21:59; Status DC Sodium Chloride (Normal Saline Flush) 10 ml QSHIFT PRN IV AFTER MEDS AND BLOOD DRAWS; Start 08/02/19 at 15:00; Stop 08/30/19 at 11:27; Status DC Sodium Chloride (Normal Saline Flush) 10 ml PRN Q5MIN PRN IV AFTER MEDS AND BLOOD DRAWS; Start 08/02/19 at 15:00 Sodium Chloride (Normal Saline Flush) 20 ml PRN Q5MIN PRN IV AFTER MEDS AND BLOOD DRAWS; Start 08/02/19 at 15:00 Sodium Chloride 100 meq/Potassium Phosphate 19 mmol/ Magnesium Sulfate 12 meq/Calcium Gluconate 15 meq/ Multivitamins 10 ml/Chromium/ Copper/Manganese/ Seleni/Zn 0.5 ml/ Insulin Human Regular 40 unit/ Potassium Chloride 20 meq/ Total Parenteral Nutrition/Amino Acids/Dextrose/ Fat Emulsion Intravenous 1,400 ml @ 58.333 mls/ hr TPN CONT IV Last administered on 08/03/19at 21:20; Start 08/03/19 at 22:00; Stop 08/04/19 at 21:59; Status DC Lidocaine HCl (Buffered Lidocaine 1%) 3 ml STK-MED ONCE .ROUTE ; Start 08/03/19 at 13:16; Stop 08/03/19 at 13:16; Status DC Lidocaine HCl (Buffered Lidocaine 1%) 6 ml 1X ONCE INJ Last administered on 08/03/19at 13:45; Start 08/03/19 at 13:30; Stop 08/03/19 at 13:31; Status DC Albumin Human 100 ml @ 100 mls/hr 1X ONCE IV Last administered on 08/03/19at 15:41; Start 08/03/19 at 15:00; Stop 08/03/19 at 15:59; Status DC Albumin Human 50 ml @ 50 mls/hr 1X ONCE IV Last administered on 08/03/19at 15:00; Start 08/03/19 at 15:00; Stop 08/03/19 at 15:59; Status DC Info (PHARMACY MONITORING -- do not chart) 1 each PRN DAILY PRN MC SEE COMMENTS; Start 08/04/19 at 11:30; Status Cancel Info (PHARMACY MONITORING -- do not chart) 1 each PRN DAILY PRN MC SEE C OMMENTS; Start 08/04/19 at 11:30; Status UNV Sodium Chloride 100 meq/Potassium Phosphate 10 mmol/ Magnesium Sulfate 12 meq/Calcium Gluconate 15 meq/ Multivitamins 10 ml/Chromium/ Copper/Manganese/ Seleni/Zn 0.5 ml/ Insulin Human Regular 35 unit/ Potassium Chloride 20 meq/ Total Parenteral Nutrition/Amino Acids/Dextrose/ Fat Emulsion Intravenous 1,400 ml @ 58.333 mls/ hr TPN CONT IV Last administered on 08/04/19at 22:10; Start 08/04/19 at 22:00; Stop 08/05/19 at 21:59; Status DC Sodium Chloride 100 meq/Potassium Phosphate 5 mmol/ Magnesium Sulfate 12 meq/Calcium Gluconate 15 meq/ Multivitamins 10 ml/Chromium/ Copper/Manganese/ Se dinorah/Zn 0.5 ml/ Insulin Human Regular 35 unit/ Potassium Chloride 20 meq/ Total Parenteral Nutrition/Amino Acids/Dextrose/ Fat Emulsion Intravenous 1,400 ml @ 58.333 mls/ hr TPN CONT IV Last administered on 08/05/19at 22:59; Start 08/05/19 at 22:00; Stop 08/06/19 at 21:59; Status DC Sodium Chloride 1,000 ml @ 1,000 mls/hr Q1H PRN IV hypotension; Start 08/06/19 at 08:27; Stop 08/06/19 at 14:26; Status DC Albumin Human 200 ml @ 200 mls/hr 1X PRN PRN IV Hypotension Last administered on 08/06/19at 09:18; Start 08/06/19 at 08:30; Stop 08/06/19 at 14:29; Status DC Sodium Chloride 1,000 ml @ 400 mls/hr Q2H30M PRN IV PATENCY; Start 08/06/19 at 08:27; Stop 08/06/19 at 20:26; Status DC Info (PHARMACY MONITORING -- do not chart) 1 each PRN DAILY PRN MC SEE CO MMENTS; Start 08/06/19 at 08:30; Status Cancel Info (PHARMACY MONITORING -- do not chart) 1 each PRN DAILY PRN MC SEE COMMENTS ; Start 08/06/19 at 08:30; Stop 08/14/19 at 13:10; Status DC Sodium Chloride 100 meq/Potassium Chloride 40 meq/ Magnesium Sulfate 15 meq/Calcium Gluconate 15 meq/ Multivitamins 10 ml/Chromium/ Copper/Manganese/ Seleni/Zn 0.5 ml/ Insulin Human Regular 35 unit/ Total Parenteral Nutrition/Amino Acids/Dextrose/ Fat Emulsion Intravenous 1,400 ml @ 58.333 mls/ hr TPN CONT IV Last administered on 08/06/19at 22:00; Start 08/06/19 at 22:00; Stop 08/07/19 at 21:59; Status DC Potassium Chloride/Water 100 ml @ 100 mls/hr 1X ONCE IV Last administered on 08/06/19at 17:28; Start 08/06/19 at 14:45; Stop 08/06/19 at 15:44; Status DC Sodium Chloride 100 meq/Potassium Chloride 40 meq/ Magnesium Sulfate 15 meq/Calcium Gluconate 15 meq/ Multivitamins 10 ml/Chromium/ Copper/Manganese/ Seleni/Zn 0.5 ml/ Insulin Human Regular 35 unit/ Total Parenteral Nutrition/Amino Acids/Dextrose/ Fat Emulsion Intravenous 1,400 ml @ 58.333 mls/ hr TPN CONT IV Last administered on 08/07/19at 22:46; Start 08/07/19 at 22:00; Stop 08/08/19 at 21:59; Status DC Sodium Chloride 100 meq/Potassium Chloride 40 meq/ Magnesium Sulfate 20 meq/Calcium Gluconate 15 meq/ Multivitamins 10 ml/Chromium/ Copper/Manganese/ Seleni/Zn 0.5 ml/ Insulin Human Regular 35 unit/ Total Parenteral Nutrition/Amino Acids/Dextrose/ Fat Emulsion Intravenous 1,400 ml @ 58.333 mls/ hr TPN CONT IV Last administered on 08/08/19at 22:31; Start 08/08/19 at 22:00; Stop 08/09/19 at 21:59; Status DC Fentanyl Citrate (Fentanyl 2ml Vial) 50 mcg PRN Q2HR PRN IVP PAIN Last administered on 08/15/19at 13:32; Start 08/08/19 at 21:00; Stop 08/16/19 at 12:53; Status DC Fentanyl Citrate (Fentanyl 2ml Vial) 25 mcg PRN Q2HR PRN IVP PAIN; Start 08/08/19 at 21:00; Stop 08/16/19 at 12:54; Status DC Enoxaparin Sodium (Lovenox 100mg Syringe) 100 mg Q12HR SQ ; Start 08/09/19 at 21:00; Status UNV Amino Acids/ Glycerin/ Electrolytes 1,000 ml @ 75 mls/hr [id number] IV ; Start 08/08/19 at 21:15; Status UNV Sodium Chloride 1,000 ml @ 1,000 mls/hr Q1H PRN IV hypotension; Start 08/09/19 at 07:56; Stop 08/09/19 at 13:55; Status DC Albumin Human 200 ml @ 200 mls/hr 1X PRN PRN IV Hypotension Last administered on 08/09/19at 08:40; Start 08/09/19 at 08:00; Stop 08/09/19 at 13:59; Status DC Sodium Chloride 1,000 ml @ 400 mls/hr Q2H30M PRN IV PATENCY; Start 08/09/19 at 07:56; Stop 08/09/19 at 19:55; Status DC Info (PHARMACY MONITORING -- do not chart) 1 each PRN DAILY PRN MC SEE COMMENTS; Start 08/09/19 at 08:00; Status UNV Info (PHARMACY MONITORING -- do not chart) 1 each PRN DAILY PRN MC SEE COMMENTS; Start 08/09/19 at 08:00; Status UNV Daptomycin 430 mg/ Sodium Chloride 50 ml @ 100 mls/hr Q24H IV Last administered on 08/09/19at 12:35; Start 08/09/19 at 09:00; Stop 08/09/19 at 12:49; Status DC Sodium Chloride 100 meq/Potassium Chloride 40 meq/ Magnesium Sulfate 20 meq/Calcium Gluconate 15 meq/ Multivitamins 10 ml/Chromium/ Copper/Manganese/ Seleni/Zn 0.5 ml/ Insulin Human Regular 35 unit/ Total Parenteral Nutrition/Amino Acids/Dextrose/ Fat Emulsion Intravenous 1,400 ml @ 58.333 mls/ hr TPN CONT IV Last administered on 08/09/19at 21:26; Start 08/09/19 at 22:00; Stop 08/10/19 at 21:59; Status DC Daptomycin 430 mg/ Sodium Chloride 50 ml @ 100 mls/hr Q48H IV ; Start 08/11/19 at 09:00; Stop 08/10/19 at 11:55; Status DC Sodium Chloride 100 meq/Potassium Chloride 40 meq/ Magnesium Sulfate 20 meq/Calcium Gluconate 15 meq/ Multivitamins 10 ml/Chromium/ Copper/Manganese/ Seleni/Zn 0.5 ml/ Insulin Human Regular 35 unit/ Total Parenteral Nutrition/Amino Acids/Dextrose/ Fat Emulsion Intravenous 1,400 ml @ 58.333 mls/ hr TPN CONT IV Last administered on 08/10/19at 22:27; Start 08/10/19 at 22:00; Stop 08/11/19 at 21:59; Status DC Daptomycin 430 mg/ Sodium Chloride 50 ml @ 100 mls/hr Q24H IV Last administered on 08/12/19at 15:07; Start 08/10/19 at 13:00; Stop 08/13/19 at 13:15; Status DC Sodium Chloride 100 meq/Potassium Chloride 40 meq/ Magnesium Sulfate 20 meq/Calcium Gluconate 10 meq/ Multivitamins 10 ml/Chromium/ Copper/Manganese/ Seleni/Zn 0.5 ml/ Insulin Human Regular 35 unit/ Total Parenteral Nutrition /Amino Acids/Dextrose/ Fat Emulsion Intravenous 1,400 ml @ 58.333 mls/ hr TPN CONT IV Last administered on 08/12/19at 00:06; Start 08/11/19 at 22:00; Stop 08/12/19 at 21:59; Status DC Alteplase, Recombinant (Cathflo For Central Catheter Clearance) 1 mg 1X ONCE INT CAT Last administered on 08/12/19at 11:44; Start 08/12/19 at 10:45; Stop 08/12/19 at 10:46; Status DC Ondansetron HCl (Zofran) 4 mg PRN Q6HRS PRN IV NAUSEA/VOMITING; Start 08/15/19 at 07:00; Stop 08/16/19 at 06:59; Status DC Fentanyl Citrate (Fentanyl 2ml Vial) 25 mcg PRN Q5MIN PRN IV MILD PAIN 1-3; Start 08/15/19 at 07:00; Stop 08/16/19 at 06:59; Status DC Fentanyl Citrate (Fentanyl 2ml Vial) 50 mcg PRN Q5MIN PRN IV MODERATE TO SEVERE PAIN Last administered on 08/15/19at 10:17; Start 08/15/19 at 07:00; Stop 08/16/19 at 06:59; Status DC Ringer's Solution 1,000 ml @ 30 mls/hr Q24H IV ; Start 08/15/19 at 07:00; Stop 08/15/19 at 18:59; Status DC Lidocaine HCl (Xylocaine-Mpf 1% 2ml Vial) 2 ml PRN 1X PRN ID PRIOR TO IV START; Start 08/15/19 at 07:00; Stop 08/16/19 at 06:59; Status DC Prochlorperazine Edisylate (Compazine) 5 mg PACU PRN PRN IV NAUSEA, MRX1; Start 08/15/19 at 07:00; Stop 08/16/19 at 06:59; Status DC Sodium Acetate 50 meq/Potassium Acetate 55 meq/ Magnesium Sulfate 20 meq/Calcium Gluconate 10 meq/ Multivitamins 10 ml/Chromium/ Copper/Manganese/ Seleni/Zn 0.5 ml/ Insulin Human Regular 35 unit/ Total Parenteral Nutrition/Amino Acids/Dextrose/ Fat Emulsion Intravenous 1,400 ml @ 58.333 mls/ hr TPN CONT IV ; Start 08/12/19 at 22:00; Stop 08/12/19 at 14:15; Status DC Sodium Acetate 50 meq/Potassium Acetate 55 meq/ Magnesium Sulfate 20 meq/Calcium Gluconate 10 meq/ Multivitamins 10 ml/Chromium/ Copper/Manganese/ Seleni/Zn 0.5 ml/ Insulin Human Regular 35 unit/ Total Parenteral Nutrition/Amino Acids/Dextrose/ Fat Emulsion Intravenous 1,800 ml @ 75 mls/hr TPN CONT IV Last administered on 08/12/19at 22:38; Start 08/12/19 at 22:00; Stop 08/13/19 at 21:59; Status DC Sodium Chloride 1,000 ml @ 1,000 mls/hr Q1H PRN IV hypotension; Start 08/12/19 at 15:31; Stop 08/12/19 at 21:30; Status DC Diphenhydramine HCl (Benadryl) 25 mg 1X PRN PRN IV ITCHING; Start 08/12/19 at 15:45; Stop 08/13/19 at 15:44; Status DC Diphenhydramine HCl (Benadryl) 25 mg 1X PRN PRN IV ITCHING; Start 08/12/19 at 15:45; Stop 08/13/19 at 15:44; Status DC Sodium Chloride 1,000 ml @ 400 mls/hr Q2H30M PRN IV PATENCY; Start 08/12/19 at 15:31; Stop 08/13/19 at 03:30; Status DC Info (PHARMACY MONITORING -- do not chart) 1 each PRN DAILY PRN MC SEE COMMENTS; Start 08/12/19 at 15:45; Stop 09/13/19 at 14:14; Status DC Sodium Acetate 50 meq/Potassium Acetate 55 meq/ Magnesium Sulfate 20 meq/Calcium Gluconate 10 meq/ Multivitamins 10 ml/Chromium/ Copper/Manganese/ Seleni/Zn 0.5 ml/ Insulin Human Regular 35 unit/ Total Parenteral Nutrition/Amino Acids/Dextrose/ Fat Emulsion Intravenous 1,800 ml @ 75 mls/hr TPN CONT IV Last administered on 08/13/19at 22:03; Start 08/13/19 at 22:00; Stop 08/14/19 at 21:59; Status DC Daptomycin 430 mg/ Sodium Chloride 50 ml @ 100 mls/hr Q24H IV Last administered on 08/18/19at 13:00; Start 08/13/19 at 13:00; Stop 08/18/19 at 20:58; Status DC Heparin Sodium (Porcine) 1000 unit/Sodium Chloride 1,001 ml @ 1,001 mls/hr 1X ONCE IRR ; Start 08/15/19 at 06:00; Stop 08/15/19 at 06:59; Status DC Potassium Acetate 55 meq/Magnesium Sulfate 20 meq/ Calcium Gluconate 10 meq/ Multivitamins 10 ml/Chromium/ Copper/Manganese/ Seleni/Zn 0.5 ml/ Insulin Human Regular 35 unit/ Total Parenteral Nutrition/Amino Acids/Dextrose/ Fat Emulsion Intravenous 1,920 ml @ 80 mls/hr TPN CONT IV Last administered on 08/14/19at 22:10; Start 08/14/19 at 22:00; Stop 08/15/19 at 21:59; Status DC Dexamethasone Sodium Phosphate (Decadron) 4 mg STK-MED ONCE .ROUTE ; Start 08/15/19 at 10:56; Stop 08/15/19 at 10:57; Status DC Ondansetron HCl (Zofran) 4 mg STK-MED ONCE .ROUTE ; Start 08/15/19 at 10:56; Stop 08/15/19 at 10:57; Status DC Rocuronium Ector (Zemuron) 50 mg STK-MED ONCE .ROUTE ; Start 08/15/19 at 10:56; Stop 08/15/19 at 10:57; Status DC Fentanyl Citrate (Fentanyl 2ml Vial) 100 mcg STK-MED ONCE .ROUTE ; Start 08/15/19 at 10:56; Stop 08/15/19 at 10:57; Status DC Bupivacaine HCl/ Epinephrine Bitart (Sensorcain-Epi 0.5%-1:[id number] Mpf) 30 ml STK-MED ONCE .ROUTE Last administered on 08/15/19at 12:01; Start 08/15/19 at 10: 58; Stop 08/15/19 at 10:58; Status DC Cellulose (Surgicel Hemostat 2x14) 1 each STK-MED ONCE .ROUTE ; Start 08/15/19 at 10:58; Stop 08/15/19 at 10:59; Status DC Iohexol (Omnipaque 300 Mg/ml) 50 ml STK-MED ONCE .ROUTE ; Start 08/15/19 at 10:58; Stop 08/15/19 at 10:59; Status DC Cellulose (Surgicel Hemostat 4x8) 1 each STK-MED ONCE .ROUTE ; Start 08/15/19 at 10:58; Stop 08/15/19 at 10:59; Status DC Bisacodyl (Dulcolax Supp) 10 mg STK-MED ONCE .ROUTE ; Start 08/15/19 at 10:59; Stop 08/15/19 at 10:59; Status DC Heparin Sodium (Porcine) 1000 unit/Sodium Chloride 1,001 ml @ 1,001 mls/hr 1X ONCE IRR ; Start 08/15/19 at 12:00; Stop 08/15/19 at 12:59; Status DC Propofol 20 ml @ As Directed STK-MED ONCE IV ; Start 08/15/19 at 11:05; Stop 08/15/19 at 11:05; Status DC Sevoflurane (Ultane) 90 ml STK-MED ONCE IH ; Start 08/15/19 at 11:05; Stop 08/15/19 at 11:05; Status DC Sevoflurane (Ultane) 60 ml STK-MED ONCE IH ; Start 08/15/19 at 12:26; Stop 08/15/19 at 12:27; Status DC Propofol 20 ml @ As Directed STK-MED ONCE IV ; Start 08/15/19 at 12:26; Stop 08/15/19 at 12:27; Status DC Phenylephrine HCl (PHENYLEPHRINE in 0.9% NACL PF) 1 mg STK-MED ONCE IV ; Start 08/15/19 at 12:34; Stop 08/15/19 at 12:34; Status DC Heparin Sodium (Porcine) (Heparin Sodium) 5,000 unit Q12HR SQ Last administered on 08/24/19at 20:57; Start 08/15/19 at 21:00; Stop 08/25/19 at 09:59; Status DC Sodium Chloride (Normal Saline Flush) 3 ml QSHIFT PRN IV AFTER MEDS AND BLOOD DRAWS; Start 08/15/19 at 13:45; Status Cancel Naloxone HCl (Narcan) 0.4 mg PRN Q2MIN PRN IV SEE INSTRUCTIONS Last administered on 09/24/19at 15:15; Start 08/15/19 at 13:45; Stop 10/19/19 at 16:00; Status DC Sodium Chloride 1,000 ml @ 25 mls/hr Q24H IV Last administered on 09/13/19at 13:37; Start 08/15/19 at 13:37; Stop 09/16/19 at 13:09; Status DC Naloxone HCl (Narcan) 0.4 mg PRN Q2MIN PRN IV SEE INSTRUCTIONS; Start 08/15/19 at 14:30; Status UNV Sodium Chloride 1,000 ml @ 25 mls/hr Q24H IV ; Start 08/15/19 at 14:30; Status UNV Hydromorphone HCl 30 ml @ 0 mls/hr CONT PRN PRN IV PER PROTOCOL Last administered on 08/20/19at 16:08; Start 08/15/19 at 14:30; Stop 08/22/19 at 08:55; Status DC Potassium Acetate 55 meq/Magnesium Sulfate 20 meq/ Calcium Gluconate 10 meq/ Multivitamins 10 ml/Chromium/ Copper/Manganese/ Seleni/Zn 0.5 ml/ Insulin Human Regular 35 unit/ Total Parenteral Nutrition/Amino Acids/Dextrose/ Fat Emulsion Intravenous 1,920 ml @ 80 mls/hr TPN CONT IV Last administered on 08/15/19at 22:01; Start 08/15/19 at 22:00; Stop 08/16/19 at 21:59; Status DC Bumetanide (Bumex) 2 mg [id number] IV Last administered on 08/19/19at 13:50; Start 08/16/19 at 14:00; Stop 08/20/19 at 14:10; Status DC Meropenem 1 gm/ Sodium Chloride 100 ml @ 200 mls/hr Q8HRS IV Last administered on 09/09/19at 05:53; Start 08/16/19 at 14:00; Stop 09/09/19 at 09:31; Status DC Potassium Acetate 55 meq/Magnesium Sulfate 20 meq/ Calcium Gluconate 10 meq/ Multivitamins 10 ml/Chromium/ Copper/Manganese/ Seleni/Zn 0.5 ml/ Insulin Human Regular 35 unit/ Total Parenteral Nutrition/Amino Acids/Dextrose/ Fat Emulsion Intravenous 1,920 ml @ 80 mls/hr TPN CONT IV Last administered on 08/16/19at 22:02; Start 08/16/19 at 22:00; Stop 08/17/19 at 21:59; Status DC Hydromorphone HCl (Dilaudid Standard LUNG GUN OPERATOR) 12 mg STK-MED ONCE IV ; Start 08/15/19 at 14:35; Stop 08/16/19 at 13:53; Status DC Artificial Tears (Artificial Tears) 1 drop PRN Q15MIN PRN OU DRY EYE Last administered on 10/11/19at 21:17; Start 08/17/19 at 05:30 Hydromorphone HCl (Dilaudid Standard LUNG GUN OPERATOR) 12 mg STK-MED ONCE IV ; Start 08/16/19 at 12:05; Stop 08/17/19 at 09:15; Status DC Potassium Acetate 65 meq/Magnesium Sulfate 20 meq/ Calcium Gluconate 10 meq/ Multivitamins 10 ml/Chromium/ Copper/Manganese/ Seleni/Zn 0.5 ml/ Insulin Human Regular 30 unit/ Total Parenteral Nutrition/Amino Acids/Dextrose/ Fat Emulsion I ntravenous 1,920 ml @ 80 mls/hr TPN CONT IV Last administered on 08/17/19at 22:22; Start 08/17/19 at 22:00; Stop 08/18/19 at 21:59; Status DC Cyclobenzaprine HCl (Flexeril) 10 mg PRN Q6HRS PRN PO MUSCLE SPASMS; Start 08/18/19 at 10:45 Potassium Acetate 55 meq/Magnesium Sulfate 20 meq/ Calcium Gluconate 10 meq/ Multivitamins 10 ml/Chromium/ Copper/Manganese/ Seleni/Zn 0.5 ml/ Insulin Human Regular 30 unit/ Total Parenteral Nutrition/Amino Acids/Dextrose/ Fat Emulsion Intravenous 1,920 ml @ 80 mls/hr TPN CONT IV Last administered on 08/19/19at 01:00; Start 08/18/19 at 22:00; Stop 08/19/19 at 21:59; Status DC Magnesium Sulfate 50 ml @ 25 mls/hr 1X ONCE IV Last administered on 08/18/19at 17:18; Start 08/18/19 at 12:45; Stop 08/18/19 at 14:44; Status DC Potassium Chloride/Water 100 ml @ 100 mls/hr 1X ONCE IV Last administered on 08/19/19at 11:27; Start 08/19/19 at 12:00; Stop 08/19/19 at 12:59; Status DC Hydromorphone HCl (Dilaudid Standard LUNG GUN OPERATOR) 12 mg STK-MED ONCE IV ; Start 08/17/19 at 10:50; Stop 08/19/19 at 11:02; Status DC Hydromorphone HCl (Dilaudid Standard LUNG GUN OPERATOR) 12 mg STK-MED ONCE IV ; Start 08/18/19 at 13:47; Stop 08/19/19 at 11:03; Status DC Potassium Acetate 30 meq/Magnesium Sulfate 20 meq/ Calcium Gluconate 10 meq/ Multivitamins 10 ml/Chromium/ Copper/Manganese/ Seleni/Zn 0.5 ml/ Insulin Human Regular 30 unit/ Potassium Chloride 30 meq/ Total Parenteral Nutrition/Amino Acids/Dextrose/ Fat Emulsion Intravenous 1,920 ml @ 80 mls/hr TPN CONT IV Last administered on 08/19/19at 22:34; Start 08/19/19 at 22:00; Stop 08/20/19 at 21:59; Status DC Potassium Chloride/Water 100 ml @ 100 mls/hr Q1H IV Last administered on 08/20/19at 13:05; Start 08/20/19 at 07:00; Stop 08/20/19 at 10:59; Status DC Magnesium Sulfate 50 ml @ 25 mls/hr 1X ONCE IV Last administered on 08/20/19at 10:34; Start 08/20/19 at 10:30; Stop 08/20/19 at 12:29; Status DC Potassium Chloride 75 meq/ Magnesium Sulfate 20 meq/Calcium Gluconate 10 meq/ Multivitamins 10 ml/Chromium/ Copper/Manganese/ Seleni/Zn 0.5 ml/ Insulin Human Regular 30 unit/ Total Parenteral Nutrition/Amino Acids/Dextrose/ Fat Emulsion Intravenous 1,920 ml @ 80 mls/hr TPN CONT IV Last administered on 08/20/19at 21:51; Start 08/20/19 at 22:00; Stop 08/21/19 at 22:00; Status DC Potassium Chloride 75 meq/ Magnesium Sulfate 20 meq/Calcium Gluconate 10 meq/ Multivitamins 10 ml/Chromium/ Copper/Manganese/ Seleni/Zn 0.5 ml/ Insulin Human Regular 25 unit/ Total Parenteral Nutrition/Amino Acids/Dextrose/ Fat Emulsion Intravenous 1,920 ml @ 80 mls/hr TPN CONT IV Last administered on 08/21/19at 22:04; Start 08/21/19 at 22:00; Stop 08/22/19 at 21:59; Status DC Hydromorphone HCl (Dilaudid) 0.4 mg PRN Q4HRS PRN IVP PAIN Last administered on 08/22/19at 10:57; Start 08/22/19 at 09:00; Stop 08/22/19 at 18:59; Status DC Micafungin Sodium 100 mg/Dextrose 100 ml @ 100 mls/hr Q24H IV Last administered on 09/13/19at 12:17; Start 08/22/19 at 11:00; Stop 09/14/19 at 09:59; Status DC Daptomycin 485 mg/ Sodium Chloride 50 ml @ 100 mls/hr Q24H IV Last administered on 08/29/19at 13:10; Start 08/22/19 at 11:00; Stop 08/30/19 at 07:44; Status DC Potassium Chloride 75 meq/ Magnesium Sulfate 15 meq/Calcium Gluconate 8 meq/ Multivitamins 10 ml/Chromium/ Copper/Manganese/ Seleni/Zn 0.5 ml/ Insulin Human Regular 25 unit/ Total Parenteral Nutrition/Amino Acids/Dextrose/ Fat Emulsion Intravenous 1,920 ml @ 80 mls/hr TPN CONT IV Last administered on 08/22/19at 23:08; Start 08/22/19 at 22:00; Stop 08/23/19 at 21:59; Status DC Haloperidol Lactate (Haldol Inj) 3 mg 1X ONCE IVP Last administered on 08/22/19at 14:37; Start 08/22/19 at 14:30; Stop 08/22/19 at 14:31; Status DC Hydromorphone HCl (Dilaudid) 1 mg PRN Q4HRS PRN IVP PAIN Last administered on at 06:25; Start 08/22/19 at 19:00; Stop 09/05/19 at 17:10; Status DC Potassium Chloride 75 meq/ Magnesium Sulfate 15 meq/Calcium Gluconate 8 meq/ Multivitamins 10 ml/Chromium/ Copper/Manganese/ Seleni/Zn 0.5 ml/ Insulin Human Regular 20 unit/ Total Parenteral Nutrition/Amino Acids/Dextrose/ Fat Emulsion Intravenous 1,920 ml @ 80 mls/hr TPN CONT IV Last administered on 08/23/19at 22:10; Start 08/23/19 at 22:00; Stop 08/24/19 at 21:59; Status DC Lidocaine HCl (Buffered Lidocaine 1%) 3 ml STK-MED ONCE .ROUTE ; Start 08/24/19 at 11:31; Stop 08/24/19 at 11:31; Status DC Lidocaine HCl (Buffered Lidocaine 1%) 3 ml STK-MED ONCE .ROUTE ; Start 08/24/19 at 12:28; Stop 08/24/19 at 12:29; Status DC Lidocaine HCl (Buffered Lidocaine 1%) 6 ml 1X ONCE INJ Last administered on 08/24/19at 12:53; Start 08/24/19 at 12:45; Stop 08/24/19 at 12:46; Status DC Potassium Chloride 75 meq/ Magnesium Sulfate 15 meq/Calcium Gluconate 8 meq/ Multivitamins 10 ml/Chromium/ Copper/Manganese/ Seleni/Zn 0.5 ml/ Insulin Human Regular 20 unit/ Total Parenteral Nutrition/Amino Acids/Dextrose/ Fat Emulsion Intravenous 1,920 ml @ 80 mls/hr TPN CONT IV Last administered on 08/24/19at 22:00; Start 08/24/19 at 22:00; Stop 08/25/19 at 21:59; Status DC Potassium Chloride 75 meq/ Magnesium Sulfate 15 meq/Calcium Gluconate 8 meq/ Multivitamins 10 ml/Chromium/ Copper/Manganese/ Seleni/Zn 0.5 ml/ Insulin Human Regular 15 unit/ Total Parenteral Nutrition/Amino Acids/Dextrose/ Fat Emulsion Intravenous 1,920 ml @ 80 mls/hr TPN CONT IV Last administered on 08/25/19at 22:28; Start 08/25/19 at 22:00; Stop 08/26/19 at 21:59; Status DC Vecuronium Ector (Norcuron Bolus) 6 mg PRN Q6HRS PRN IV VENT ASYNCHRONY; Start 08/25/19 at 19:15; Stop 08/25/19 at 19:35; Status DC Bumetanide (Bumex) 2 mg 1X ONCE IV Last administered on 08/25/19at 22:09; Start 08/25/19 at 19:45; Stop 08/25/19 at 19:46; Status DC Lidocaine HCl (Buffered Lidocaine 1%) 3 ml STK-MED ONCE .ROUTE ; Start 08/26/19 at 07:59; Stop 08/26/19 at 07:59; Status DC Midazolam HCl (Versed) 5 mg STK-MED ONCE .ROUTE ; Start 08/26/19 at 08:36; Stop 08/26/19 at 08:36; Status DC Fentanyl Citrate (Fentanyl 5ml Vial) 250 mcg STK-MED ONCE .ROUTE ; Start 08/26/19 at 08:36; Stop 08/26/19 at 08:37; Status DC Lidocaine HCl (Buffered Lidocaine 1%) 3 ml 1X ONCE IJ Last administered on 08/26/19at 09:30; Start 08/26/19 at 09:15; Stop 08/26/19 at 09:16; Status DC Midazolam HCl (Versed) 5 mg 1X ONCE IV Last administered on 08/26/19at 09:30; Start 08/26/19 at 09:15; Stop 08/26/19 at 09:16; Status DC Fentanyl Citrate (Fentanyl 5ml Vial) 250 mcg 1X ONCE IV Last administered on 08/26/19at 09:30; Start 08/26/19 at 09:15; Stop 08/26/19 at 09:16; Status DC Bumetanide (Bumex) 2 mg DAILY IV Last administered on 09/05/19at 08:07; Start 08/26/19 at 10:00; Stop 09/05/19 at 17:15; Status DC Potassium Chloride 75 meq/ Magnesium Sulfate 15 meq/ Multivitamins 10 ml/Chromium/ Copper/Manganese/ Seleni/Zn 0.5 ml/ Insulin Human Regular 15 unit/ Total Parenteral Nutrition/Amino Acids/Dextrose/ Fat Emulsion Intravenous 1,920 ml @ 80 mls/hr TPN CONT IV Last administered on 08/26/19at 21:59; Start 08/26/19 at 22:00; Stop 08/27/19 at 21:59; Status DC Metoclopramide HCl (Reglan Vial) 10 mg PRN Q3HRS PRN IVP NAUSEA/VOMITING-3rd choice Last administered on 09/01/19at 04:25; Start 08/27/19 at 16:45 Potassium Chloride 75 meq/ Magnesium Sulfate 15 meq/ Multivitamins 10 ml/Chromium/ Copper/Manganese/ Seleni/Zn 0.5 ml/ Insulin Human Regular 15 unit/ Total Parenteral Nutrition/Amino Acids/Dextrose/ Fat Emulsion Intravenous 1,920 ml @ 80 mls/hr TPN CONT IV Last administered on 08/27/19at 22:41; Start 08/27/19 at 22:00; Stop 08/28/19 at 21:59; Status DC Magnesium Sulfate 50 ml @ 25 mls/hr 1X ONCE IV Last administered on 08/28/19at 10:44; Start 08/28/19 at 09:00; Stop 08/28/19 at 10:59; Status DC Potassium Chloride/Water 100 ml @ 100 mls/hr 1X ONCE IV Last administered on 08/28/19at 09:37; Start 08/28/19 at 09:00; Stop 08/28/19 at 09:59; Status DC Duloxetine HCl (Cymbalta) 30 mg DAILY PO Last administered on 08/29/19at 09:48; Start 08/28/19 at 14:00; Stop 08/31/19 at 10:25; Status DC Potassium Chloride 80 meq/ Magnesium Sulfate 20 meq/ Multivitamins 10 ml/Chromium/ Copper/Manganese/ Seleni/Zn 0.5 ml/ Insulin Human Regular 15 unit/ Total Parenteral Nutrition/Amino Acids/Dextrose/ Fat Emulsion Intravenous 1,920 ml @ 80 mls/hr TPN CONT IV Last administered on 08/28/19at 21:42; Start 08/28/19 at 22:00; Stop 08/29/19 at 21:59; Status DC Potassium Chloride 80 meq/ Magnesium Sulfate 20 meq/ Multivitamins 10 ml/Chromium/ Copper/Manganese/ Seleni/Zn 0.5 ml/ Insulin Human Regular 15 unit/ Total Parenteral Nutrition/Amino Acids/Dextrose/ Fat Emulsion Intravenous 1,920 ml @ 80 mls/hr TPN CONT IV Last administered on 08/29/19at 22:20; Start 08/29/19 at 22:00; Stop 08/30/19 at 21:59; Status DC Lidocaine HCl (Buffered Lidocaine 1%) 3 ml STK-MED ONCE .ROUTE ; Start 08/30/19 at 09:54; Stop 08/30/19 at 09:55; Status DC Hydromorphone HCl (Dilaudid Standard LUNG GUN OPERATOR) 12 mg STK-MED ONCE IV ; Start 08/19/19 at 15:50; Stop 08/30/19 at 11:24; Status DC Potassium Chloride 80 meq/ Magnesium Sulfate 20 meq/ Multivitamins 10 ml/Chromium/ Copper/Manganese/ Seleni/Zn 0.5 ml/ Insulin Human Regular 15 unit/ Total Parenteral Nutrition/Amino Acids/Dextrose/ Fat Emulsion Intravenous 1,920 ml @ 80 mls/hr TPN CONT IV Last administered on 08/30/19at 21:40; Start at 22:00; Stop 08/31/19 at 21:59; Status DC Lidocaine HCl (Buffered Lidocaine 1%) 6 ml 1X ONCE INJ Last administered on 08/30/19at 14:15; Start 08/30/19 at 14:15; Stop 08/30/19 at 14:16; Status DC Potassium Chloride 80 meq/ Magnesium Sulfate 20 meq/ Multivitamins 10 ml/Chromium/ Copper/Manganese/ Seleni/Zn 1 ml/ Insulin Human Regular 15 unit/ Total Parenteral Nutrition/Amino Acids/Dextrose/ Fat Emulsion Intravenous 1,920 ml @ 80 mls/hr TPN CONT IV Last administered on 08/31/19at 22:04; Start at 22:00; Stop 09/01/19 at 21:59; Status DC Potassium Chloride/Water 100 ml @ 100 mls/hr 1X ONCE IV Last administered on 09/01/19at 11:34; Start 09/01/19 at 11:00; Stop 09/01/19 at 11:59; Status DC Potassium Chloride 90 meq/ Magnesium Sulfate 20 meq/ Multivitamins 10 ml/Chromium/ Copper/Manganese/ Seleni/Zn 1 ml/ Insulin Human Regular 15 unit/ Total Parenteral Nutrition/Amino Acids/Dextrose/ Fat Emulsion Intravenous 1,920 ml @ 80 mls/hr TPN CONT IV Last administered on 09/01/19at 22:57; Start at 22:00; Stop 09/02/19 at 21:59; Status DC Potassium Chloride 90 meq/ Magnesium Sulfate 20 meq/ Multivitamins 10 ml/Chr omium/ Copper/Manganese/ Seleni/Zn 1 ml/ Insulin Human Regular 15 unit/ Total Parenteral Nutrition/Amino Acids/Dextrose/ Fat Emulsion Intravenous 1,920 ml @ 80 mls/hr TPN CONT IV Last administered on 09/02/19at 22:48; Start 09/02/19 at 22:00; Stop 09/03/19 at 21:59; Status DC Potassium Chloride 90 meq/ Magnesium Sulfate 20 meq/ Multivitamins 10 ml/Chromium/ Copper/Manganese/ Seleni/Zn 1 ml/ Insulin Human Regular 15 unit/ Total Parenteral Nutrition/Amino Acids/Dextrose/ Fat Emulsion Intravenous 1,890 ml @ 78.75 mls/ hr TPN CONT IV Last administered on 09/03/19at 22:15; Start 09/03/19 at 22:00; Stop 09/04/19 at 21:59; Status DC Linezolid/Dextrose 300 ml @ 300 mls/hr Q12HR IV Last administered on 09/06/19at 21:08; Start 09/04/19 at 09:00; Stop 09/07/19 at 08:11; Status DC Daptomycin 450 mg/ Sodium Chloride 50 ml @ 100 mls/hr Q24H IV Last administered on 09/07/19at 09:25; Start 09/04/19 at 09:00; Stop 09/08/19 at 08:30; Status DC Potassium Chloride 90 meq/ Magnesium Sulfate 20 meq/ Multivitamins 10 ml/C hromium/ Copper/Manganese/ Seleni/Zn 1 ml/ Insulin Human Regular 15 unit/ Total Parenteral Nutrition/Amino Acids/Dextrose/ Fat Emulsion Intravenous 1,890 ml @ 78.75 mls/ hr TPN CONT IV Last administered on 09/04/19at 21:34; Start 09/04/19 at 22:00; Stop 09/05/19 at 21:59; Status DC Lorazepam (Ativan Inj) 2 mg STK-MED ONCE .ROUTE ; Start 09/04/19 at 14:58; Stop 09/04/19 at 14:58; Status DC Metoprolol Tartrate (Lopressor Vial) 5 mg 1X ONCE IVP Last administered on 09/04/19at 15:31; Start 09/04/19 at 15:15; Stop 09/04/19 at 15:16; Status DC Lorazepam (Ativan Inj) 2 mg 1X ONCE IVP Last administered on 09/04/19at 15:30; Start 09/04/19 at 15:15; Stop 09/04/19 at 15:16; Status DC Enoxaparin Sodium (Lovenox 40mg Syringe) 40 mg Q24H SQ Last administered on at 17:44; Start 09/04/19 at 17:00; Stop 09/25/19 at 06:50; Status DC Lorazepam (Ativan Inj) 1 mg PRN Q4HRS PRN IVP ANXIETY / AGITATION MILD-MOD Last administered on 09/18/19at 15:55; Start 09/04/19 at 19:15; Stop 09/20/19 at 11:45; Status DC Lorazepam (Ativan Inj) 2 mg PRN Q4HRS PRN IVP ANXIETY / AGITATION SEVERE Last administered on 09/19/19at 07:55; Start 09/04/19 at 19:15; Stop 09/20/19 at 11:45; Status DC Fentanyl Citrate (Fentanyl 2ml Vial) 50 mcg PRN Q4HRS PRN IVP SEVERE PAIN Last administered on 10/01/19at 05:15; Start 09/05/19 at 13:15; Stop 10/02/19 at 09:29; Status DC Fentanyl Citrate (Fentanyl 2ml Vial) 25 mcg PRN Q4HRS PRN IVP MODERATE PAIN Last administered on 10/01/19at 00:27; Start 09/05/19 at 13:15; Stop 10/02/19 at 09:30; Status DC Potassium Chloride 90 meq/ Magnesium Sulfate 20 meq/ Multivitamins 10 ml/Chromium/ Copper/Manganese/ Seleni/Zn 1 ml/ Insulin Human Regular 15 unit/ Total Parenteral Nutrition/Amino Acids/Dextrose/ Fat Emulsion Intravenous 1,890 ml @ 78.75 mls/ hr TPN CONT IV Last administered on 09/05/19at 22:18; Start 09/05/19 at 22:00; Stop 09/06/19 at 21:59; Status DC Furosemide (Lasix) 40 mg 1X ONCE IVP Last administered on 09/05/19at 21:51; Start 09/05/19 at 21:45; Stop 09/05/19 at 21:48; Status DC Albumin Human 100 ml @ 100 mls/hr 1X PRN PRN IV SEE COMMENTS; Start 09/06/19 at 01:30 Furosemide (Lasix) 40 mg [id number] IVP Last administered on 09/21/19at 08:04; Start 09/06/19 at 14:00; Stop 09/21/19 at 13:07; Status DC Potassium Chloride 90 meq/ Magnesium Sulfate 20 meq/ Multivitamins 10 ml/Chromium/ Copper/Manganese/ Seleni/Zn 1 ml/ Insulin Human Regular 15 unit/ Total Parenteral Nutrition/Amino Acids/Dextrose/ Fat Emulsion Intravenous 1,800 ml @ 75 mls/hr TPN CONT IV Last administered on 09/06/19at 22:31; Start 09/06/19 at 22:00; Stop 09/07/19 at 21:59; Status DC Potassium Chloride 90 meq/ Magnesium Sulfate 20 meq/ Multivitamins 10 ml/Chromium/ Copper/Manganese/ Seleni/Zn 1 ml/ Insulin Human Regular 15 unit/ Total Parenteral Nutrition/Amino Acids/Dextrose/ Fat Emulsion Intravenous 1,800 ml @ 75 mls/hr TPN CONT IV Last administered on 09/07/19at 22:28; Start 09/07/19 at 22:00; Stop 09/08/19 at 21:59; Status DC Potassium Chloride 110 meq/ Magnesium Sulfate 20 meq/ Multivitamins 10 ml/Chromium/ Copper/Manganese/ Seleni/Zn 1 ml/ Insulin Human Regular 15 unit/ Total Parenteral Nutrition/Amino Acids/Dextrose/ Fat Emulsion Intravenous 1,800 ml @ 75 mls/hr TPN CONT IV Last administered on 09/08/19at 22:01; Start 09/08/19 at 22:00; Stop 09/09/19 at 21:59; Status DC Saliva Substitute (Biotene Moisturizing Mouth) 2 spray PRN Q15MIN PRN PO DRY MOUTH; Start 09/08/19 at 11:00 Potassium Chloride 110 meq/ Magnesium Sulfate 20 meq/ Multivitamins 10 ml/Chromium/ Copper/Manganese/ Seleni/Zn 1 ml/ Insulin Human Regular 15 unit/ Total Parenteral Nutrition/Amino Acids/Dextrose/ Fat Emulsion Intravenous 1,800 ml @ 75 mls/hr TPN CONT IV Last administered on 09/09/19at 22:21; Start 09/09/19 at 22:00; Stop 09/10/19 at 21:59; Status DC Potassium Chloride 110 meq/ Magnesium Sulfate 20 meq/ Multivitamins 10 ml/Chromium/ Copper/Manganese/ Seleni/Zn 1 ml/ Insulin Human Regular 15 unit/ Total Parenteral Nutrition/Amino Acids/Dextrose/ Fat Emulsion Intravenous 1,800 ml @ 75 mls/hr TPN CONT IV Last administered on 09/10/19at 22:04; Start 09/10/19 at 22:00; Stop 09/11/19 at 21:59; Status DC Potassium Chloride 110 meq/ Magnesium Sulfate 20 meq/ Multivitamins 10 ml/Chromium/ Copper/Manganese/ Seleni/Zn 1 ml/ Insulin Human Regular 15 unit/ Total Parenteral Nutrition/Amino Acids/Dextrose/ Fat Emulsion Intravenous 1,800 ml @ 75 mls/hr TPN CONT IV Last administered on 09/11/19at 22:48; Start 09/11/19 at 22:00; Stop 09/12/19 at 21:59; Status DC Potassium Chloride 70 meq/ Magnesium Sulfate 20 meq/ Multivitamins 10 ml/Chromium/ Copper/Manganese/ Seleni/Zn 1 ml/ Insulin Human Regular 15 unit/ Total Parenteral Nutrition/Amino Acids/Dextrose/ Fat Emulsion Intravenous 1,800 ml @ 75 mls/hr TPN CONT IV Last administered on 09/12/19at 21:39; Start 09/12/19 at 22:00; Stop 09/13/19 at 21:59; Status DC Meropenem 500 mg/ Sodium Chloride 50 ml @ 100 mls/hr Q6HRS IV Last administered on 09/14/19at 06:02; Start 09/12/19 at 18:00; Stop 09/14/19 at 09:59; Status DC Barium Sulfate (Varibar Thin Liquid Apple) 148 gm 1X ONCE PO ; Start 09/13/19 at 11:45; Stop 09/13/19 at 11:49; Status DC Potassium Chloride 70 meq/ Magnesium Sulfate 20 meq/ Multivitamins 10 ml/Chromium/ Copper/Manganese/ Seleni/Zn 1 ml/ Insulin Human Regular 15 unit/ Total Parenteral Nutrition/Amino Acids/Dextrose/ Fat Emulsion Intravenous 1,800 ml @ 75 mls/hr TPN CONT IV Last administered on 09/13/19at 22:27; Start 09/13/19 at 22:00; Stop 09/14/19 at 21:59; Status DC Piperacillin Sod/ Tazobactam Sod 3.375 gm/Sodium Chloride 50 ml @ 100 mls/hr Q6HRS IV Last administered on 09/22/19at 06:10; Start 09/14/19 at 12:00; Stop 09/22/19 at 07:26; Status DC Potassium Chloride 70 meq/ Magnesium Sulfate 20 meq/ Multivitamins 10 ml/Chromi um/ Copper/Manganese/ Seleni/Zn 1 ml/ Insulin Human Regular 15 unit/ Total Parenteral Nutrition/Amino Acids/Dextrose/ Fat Emulsion Intravenous 1,800 ml @ 75 mls/hr TPN CONT IV Last administered on 09/14/19at 22:03; Start 09/14/19 at 22:00; Stop 09/15/19 at 21:59; Status DC Potassium Chloride 70 meq/ Magnesium Sulfate 20 meq/ Multivitamins 10 ml/Chromium/ Copper/Manganese/ Seleni/Zn 1 ml/ Insulin Human Regular 15 unit/ Total Parenteral Nutrition/Amino Acids/Dextrose/ Fat Emulsion Intravenous 1,800 ml @ 75 mls/hr TPN CONT IV Last administered on 09/15/19at 22:33; Start 09/15/19 at 22:00; Stop 09/16/19 at 21:59; Status DC Potassium Chloride 70 meq/ Magnesium Sulfate 20 meq/ Multivitamins 10 ml/Chromium/ Copper/Manganese/ Seleni/Zn 1 ml/ Insulin Human Regular 15 unit/ Total Parenteral Nutrition/Amino Acids/Dextrose/ Fat Emulsion Intravenous 1,800 ml @ 75 mls/hr TPN CONT IV Last administered on 09/16/19at 23:13; Start 09/16/19 at 22:00; Stop 09/17/19 at 21:59; Status DC Potassium Chloride 80 meq/ Magnesium Sulfate 20 meq/ Multivitamins 10 ml/Chromium/ Copper/Manganese/ Seleni/Zn 1 ml/ Insulin Human Regular 15 unit/ Total Parenteral Nutrition/Amino Acids/Dextrose/ Fat Emulsion Intravenous 1,800 ml @ 75 mls/hr TPN CONT IV Last administered on 09/17/19at 22:30; Start 09/17/19 at 22:00; Stop 09/18/19 at 21:59; Status DC Potassium Chloride 80 meq/ Magnesium Sulfate 20 meq/ Multivitamins 10 ml/Chromium/ Copper/Manganese/ Seleni/Zn 1 ml/ Insulin Human Regular 15 unit/ Total Parenteral Nutrition/Amino Acids/Dextrose/ Fat Emulsion Intravenous 1,800 ml @ 75 mls/hr TPN CONT IV Last administered on 09/18/19at 21:54; Start 09/18/19 at 22:00; Stop 09/19/19 at 21:59; Status DC Potassium Chloride/Water 100 ml @ 100 mls/hr 1X ONCE IV Last administered on 09/19/19at 10:15; Start 09/19/19 at 10:00; Stop 09/19/19 at 10:59; Status DC Potassium Chloride 90 meq/ Magnesium Sulfate 20 meq/ Multivitamins 10 ml/Chromium/ Copper/Manganese/ Seleni/Zn 1 ml/ Insulin Human Regular 20 unit/ Total Parenteral Nutrition/Amino Acids/Dextrose/ Fat Emulsion Intravenous 1,800 ml @ 75 mls/hr TPN CONT IV Last administered on 09/19/19at 22:28; Start 09/19/19 at 22:00; Stop 09/20/19 at 21:59; Status DC Potassium Chloride 90 meq/ Magnesium Sulfate 20 meq/ Multivitamins 10 ml/Chromium/ Copper/Manganese/ Seleni/Zn 1 ml/ Insulin Human Regular 20 unit/ Total Parenteral Nutrition/Amino Acids/Dextrose/ Fat Emulsion Intravenous 1,800 ml @ 75 mls/hr TPN CONT IV Last administered on 09/20/19at 22:08; Start 09/20/19 at 22:00; Stop 09/21/19 at 21:59; Status DC Lorazepam (Ativan Inj) 0.25 mg PRN Q4HRS PRN IVP ANXIETY / AGITATION Last administered on 10/15/19at 13:37; Start 09/21/19 at 07:30 Potassium Chloride 90 meq/ Magnesium Sulfate 20 meq/ Multivitamins 10 ml/Chromium/ Copper/Manganese/ Seleni/Zn 1 ml/ Insulin Human Regular 20 unit/ Total Parenteral Nutrition/Amino Acids/Dextrose/ Fat Emulsion Intravenous 1,800 ml @ 75 mls/hr TPN CONT IV Last administered on 09/21/19at 23:13; Start 09/21/19 at 22:00; Stop 09/22/19 at 21:59; Status DC Furosemide (Lasix) 40 mg DAILY IVP Last administered on 09/23/19at 11:14; Start 09/21/19 at 13:30; Stop 09/25/19 at 09:12; Status DC Fluoxetine HCl (PROzac) 20 mg QHS PEG Last administered on 10/20/19at 21:51; Start 09/22/19 at 21:00 Fentanyl (Duragesic 50mcg/ Hr Patch) 1 patch Q72H TD Last administered on 09/22/19at 21:22; Start 09/22/19 at 21:00; Stop 10/01/19 at 12:00; Status DC Potassium Chloride 40 meq/ Potassium Acetate 60 meq/Magnesium Sulfate 10 meq/ Multivitamins 10 ml/Chromium/ Copper/Manganese/ Seleni/Zn 1 ml/ Insulin Human Regular 20 unit/ Total Parenteral Nutrition/Amino Acids/Dextrose/ Fat Emulsion Intravenous 1,800 ml @ 75 mls/hr TPN CONT IV Last administered on 09/23/19at 00:03; Start 09/22/19 at 22:00; Stop 09/23/19 at 21:59; Status DC Potassium Acetate 80 meq/Magnesium Sulfate 5 meq/ Multivitamins 10 ml/Chromium/ Copper/Manganese/ Seleni/Zn 1 ml/ Insulin Human Regular 20 unit/ Total Parenteral Nutrition/Amino Acids/Dextrose/ Fat Emulsion Intravenous 1,920 ml @ 80 mls/hr TPN CONT IV Last administered on 09/23/19at 21:59; Start 09/23/19 at 22:00; Stop 09/24/19 at 21:59; Status DC Potassium Acetate 60 meq/Magnesium Sulfate 5 meq/ Multivitamins 10 ml/Chromium/ Copper/Manganese/ Seleni/Zn 1 ml/ Insulin Human Regular 30 unit/ Total Parenteral Nutrition/Amino Acids/Dextrose/ Fat Emulsion Intravenous 1,920 ml @ 80 mls/hr TPN CONT IV Last administered on 09/24/19at 21:54; Start 09/24/19 at 22:00; Stop 09/25/19 at 21:59; Status DC Norepinephrine Bitartrate 8 mg/ Dextrose 258 ml @ 13.332 mls/ hr CONT PRN IV PER PROTOCOL Last administered on 10/20/19at 09:09; Start 09/25/19 at 06:30 Albumin Human 500 ml @ 125 mls/hr 1X ONCE IV Last administered on 09/25/19at 08:10; Start 09/25/19 at 08:15; Stop 09/25/19 at 12:14; Status DC Potassium Acetate 40 meq/Magnesium Sulfate 5 meq/ Multivitamins 10 ml/Chromium/ Copper/Manganese/ Seleni/Zn 1 ml/ Insulin Human Regular 30 unit/ Total Parenteral Nutrition/Amino Acids/Dextrose/ Fat Emulsion Intravenous 1,920 ml @ 80 mls/hr TPN CONT IV Last administered on 09/25/19at 22:23; Start 09/25/19 at 22:00; Stop 09/26/19 at 21:59; Status DC Meropenem 1 gm/ Sodium Chloride 100 ml @ 200 mls/hr Q8HRS IV ; Start 09/25/19 at 14:00; Status Cancel Meropenem 1 gm/ Sodium Chloride 100 ml @ 200 mls/hr Q8HRS IV Last administered on 09/25/19at 11:04; Start 09/25/19 at 10:00; Stop 09/25/19 at 13:00; Status DC Meropenem 1 gm/ Sodium Chloride 100 ml @ 200 mls/hr Q12HR IV Last administered on 10/13/19at 08:27; Start 09/25/19 at 21:00; Stop 10/13/19 at 08:56; Status DC Sodium Chloride 1,000 ml @ 1,000 mls/hr 1X ONCE IV Last administered on 09/25/19at 11:06; Start 09/25/19 at 10:45; Stop 09/25/19 at 11:44; Status DC Micafungin Sodium 100 mg/Dextrose 100 ml @ 100 mls/hr Q24H IV Last administered on 10/12/19at 12:34; Start 09/25/19 at 11:00; Stop 10/13/19 at 08:56; Status DC Daptomycin 410 mg/ Sodium Chloride 50 ml @ 100 mls/hr Q24H IV Last administered on 09/27/19at 13:33; Start 09/25/19 at 14:00; Stop 09/28/19 at 08:30; Status DC Midazolam HCl (Versed) 2 mg STK-MED ONCE .ROUTE ; Start 09/25/19 at 14:47; Stop 09/25/19 at 14:48; Status DC Fentanyl Citrate (Fentanyl 2ml Vial) 100 mcg STK-MED ONCE .ROUTE ; Start 09/25/19 at 14:47; Stop 09/25/19 at 14:48; Status DC Flumazenil (Romazicon) 0.5 mg STK-MED ONCE IV ; Start 09/25/19 at 14:48; Stop 09/25/19 at 14:48; Status DC Naloxone HCl (Narcan) 0.4 mg STK-MED ONCE .ROUTE ; Start 09/25/19 at 14:48; Stop 09/25/19 at 14:48; Status DC Lidocaine HCl (Lidocaine 1% 20ml Vial) 20 ml STK-MED ONCE .ROUTE ; Start 09/25/19 at 14:48; Stop 09/25/19 at 14:48; Status DC Midazolam HCl (Versed) 2 mg 1X ONCE IV Last administered on 09/25/19at 15:28; Start 09/25/19 at 15:00; Stop 09/25/19 at 15:01; Status DC Fentanyl Citrate (Fentanyl 2ml Vial) 100 mcg 1X ONCE IV Last administered on 09/25/19at 15:28; Start 09/25/19 at 15:00; Stop 09/25/19 at 15:01; Status DC Lidocaine HCl (Lidocaine 1% 20ml Vial) 20 ml 1X ONCE INJ Last administered on 09/25/19at 15:30; Start 09/25/19 at 15:00; Stop 09/25/19 at 15:01; Status DC Sodium Chloride 1,000 ml @ 100 mls/hr Q10H IV Last administered on 10/04/19at 07:30; Start 09/25/19 at 20:00; Stop 10/04/19 at 11:26; Status DC Sodium Bicarbonate (Sodium Bicarb Adult 8.4% Syr) 50 meq 1X ONCE IV Last administered on 09/25/19at 21:47; Start 09/25/19 at 22:00; Stop 09/25/19 at 22:01; Status DC Potassium Acetate 40 meq/Magnesium Sulfate 5 meq/ Multivitamins 10 ml/Chromium/ Copper/Manganese/ Seleni/Zn 1 ml/ Insulin Human Regular 30 unit/ Total Parenteral Nutrition/Amino Acids/Dextrose/ Fat Emulsion Intravenous 1,920 ml @ 80 mls/hr TPN CONT IV Last administered on 09/26/19at 22:28; Start 09/26/19 at 22:00; Stop 09/27/19 at 21:59; Status DC Sodium Chloride 500 ml @ 500 mls/hr 1X ONCE IV Last administered on 09/27/19at 06:39; Start 09/27/19 at 06:45; Stop 09/27/19 at 07:44; Status DC Potassium Acetate 40 meq/Magnesium Sulfate 5 meq/ Multivitamins 10 ml/Chromium/ Copper/Manganese/ Seleni/Zn 1 ml/ Insulin Human Regular 30 unit/ Total Parenteral Nutrition/Amino Acids/Dextrose/ Fat Emulsion Intravenous 1,920 ml @ 80 mls/hr TPN CONT IV Last administered on 09/27/19at 22:03; Start 09/27/19 at 22:00; Stop 09/28/19 at 21:59; Status DC Metoprolol Tartrate (Lopressor Vial) 5 mg PRN Q6HRS PRN IVP HYPERTENSION Last administered on 10/06/19at 10:14; Start 09/28/19 at 09:00 Potassium Acetate 40 meq/Magnesium Sulfate 5 meq/ Multivitamins 10 ml/Chromium/ Copper/Manganese/ Seleni/Zn 1 ml/ Insulin Human Regular 30 unit/ Total Parenteral Nutrition/Amino Acids/Dextrose/ Fat Emulsion Intravenous 1,920 ml @ 80 mls/hr TPN CONT IV Last administered on 09/28/19at 21:26; Start 09/28/19 at 22:00; Stop 09/29/19 at 21:59; Status DC Potassium Acetate 40 meq/Magnesium Sulfate 5 meq/ Multivitamins 10 ml/Chromium/ Copper/Manganese/ Seleni/Zn 1 ml/ Insulin Human Regular 30 unit/ Total Parenteral Nutrition/Amino Acids/Dextrose/ Fat Emulsion Intravenous 1,920 ml @ 80 mls/hr TPN CONT IV Last administered on 09/29/19at 23:23; Start 09/29/19 at 22:00; Stop 09/30/19 at 21:59; Status DC Potassium Acetate 40 meq/Magnesium Sulfate 5 meq/ Multivitamins 10 ml/Chromium/ Copper/Manganese/ Seleni/Zn 1 ml/ Insulin Human Regular 30 unit/ Total Parenteral Nutrition/Amino Acids/Dextrose/ Fat Emulsion Intravenous 1,920 ml @ 80 mls/hr TPN CONT IV Last administered on 09/30/19at 21:35; Start 09/30/19 at 22:00; Stop 10/01/19 at 21:59; Status DC Furosemide (Lasix) 20 mg 1X ONCE IVP Last administered on 10/01/19at 06:26; Start 10/01/19 at 06:15; Stop 10/01/19 at 06:16; Status DC Methylprednisolone Sodium Succinate (SOLU-Medrol 125MG VIAL) 125 mg 1X ONCE IV Last administered on 10/01/19at 06:26; Start 10/01/19 at 06:15; Stop 10/01/19 at 06:16; Status DC Albuterol/ Ipratropium (Duoneb) 3 ml Q4HRS NEB Last administered on 10/21/19at 15:38; Start 10/01/19 at 08:00 Fentanyl Citrate 30 ml @ 0 mls/hr CONT PRN IV SEE PROTOCOL Last administered on 10/21/19at 13:55; Start 10/01/19 at 06:00 Propofol 100 ml @ 0 mls/hr CONT PRN IV SEE PROTOCOL Last administered on 10/08/19at 23:50; Start 10/01/19 at 06:00 Fentanyl Citrate (Fentanyl 2ml Vial) 25 mcg PRN Q1HR PRN IV SEE COMMENTS; Start 10/01/19 at 06:00 Fentanyl Citrate (Fentanyl 2ml Vial) 50 mcg PRN Q1HR PRN IV SEE COMMENTS; Start 10/01/19 at 06:00 Chlorhexidine Gluconate (Peridex) 15 ml BID MM ; Start 10/01/19 at 09:00; Stop 10/01/19 at 07:58; Status DC Potassium Acetate 40 meq/Magnesium Sulfate 5 meq/ Multivitamins 10 ml/Chromium/ Copper/Manganese/ Seleni/Zn 1 ml/ Insulin Human Regular 30 unit/ Total Parenteral Nutrition/Amino Acids/Dextrose/ Fat Emulsion Intravenous 1,920 ml @ 80 mls/hr TPN CONT IV Last administered on 10/01/19at 21:19; Start 10/01/19 at 22:00; Stop 10/02/19 at 21:59; Status DC Acetylcysteine (Mucomyst 20% Resp Treatment) 600 mg BID NEB Last administered on 10/07/19at 09:33; Start 10/01/19 at 21:00; Stop 10/07/19 at 10:39; Status DC Magnesium Sulfate 100 ml @ 25 mls/hr 1X ONCE IV Last administered on 10/01/19at 15:48; Start 10/01/19 at 15:45; Stop 10/01/19 at 19:44; Status DC Potassium Acetate 40 meq/Magnesium Sulfate 5 meq/ Multivitamins 10 ml/Chromium/ Copper/Manganese/ Seleni/Zn 1 ml/ Insulin Human Regular 30 unit/ Total Parenteral Nutrition/Amino Acids/Dextrose/ Fat Emulsion Intravenous 1,920 ml @ 80 mls/hr TPN CONT IV Last administered on 10/02/19at 21:35; Start 10/02/19 at 22:00; Stop 10/03/19 at 21:59; Status DC Potassium Chloride/Water 100 ml @ 100 mls/hr Q1H IV Last administered on 10/03/19at 08:31; Start 10/03/19 at 07:00; Stop 10/03/19 at 08:59; Status DC Potassium Acetate 40 meq/Magnesium Sulfate 5 meq/ Multivitamins 10 ml/Chromium/ Copper/Manganese/ Seleni/Zn 1 ml/ Insulin Human Regular 30 unit/ Total Parenteral Nutrition/Amino Acids/Dextrose/ Fat Emulsion Intravenous 1,920 ml @ 80 mls/hr TPN CONT IV Last administered on 10/03/19at 21:54; Start 10/03/19 at 22:00; Stop 10/04/19 at 19:34; Status DC Lidocaine HCl (Buffered Lidocaine 1%) 3 ml STK-MED ONCE .ROUTE ; Start 10/03/19 at 12:14; Stop 10/03/19 at 12:14; Status DC Lidocaine HCl (Buffered Lidocaine 1%) 3 ml 1X ONCE IJ Last administered on 10/03/19at 13:11; Start 10/03/19 at 13:00; Stop 10/03/19 at 13:01; Status DC Magnesium Sulfate 50 ml @ 25 mls/hr 1X ONCE IV ; Start 10/04/19 at 08:15; Stop 10/04/19 at 10:14; Status DC Potassium Acetate 40 meq/Magnesium Sulfate 10 meq/ Multivitamins 10 ml/Chromium/ Copper/Manganese/ Seleni/Zn 1 ml/ Insulin Human Regular 20 unit/ Total Parenteral Nutrition/Amino Acids/Dextrose/ Fat Emulsion Intravenous 1,920 ml @ 80 mls/hr TPN CONT IV Last administered on 10/04/19at 21:32; Start 10/04/19 at 22:00; Stop 10/05/19 at 21:59; Status DC Potassium Chloride/Water 100 ml @ 100 mls/hr Q1H IV Last administered on 10/05/19at 09:12; Start 10/05/19 at 08:00; Stop 10/05/19 at 09:59; Status DC Alteplase, Recombinant (Cathflo For Central Catheter Clearance) 4 mg 1X ONCE INT CAT ; Start 10/05/19 at 09:15; Stop 10/05/19 at 09:16; Status UNV Alteplase, Recombinant (Cathflo For Central Catheter Clearance) 4 mg 1X ONCE INT CAT ; Start 10/05/19 at 09:15; Stop 10/05/19 at 09:16; Status UNV Alteplase, Recombinant (Cathflo For Central Catheter Clearance) 4 mg 1X ONCE INT CAT ; Start 10/05/19 at 09:15; Stop 10/05/19 at 09:16; Status UNV Alteplase, Recombinant 4 mg/ Sodium Chloride 20 ml @ 20 mls/hr 1X ONCE IV Last administered on 10/05/19at 10:10; Start 10/05/19 at 10:00; Stop 10/05/19 at 10:59; Status DC Alteplase, Recombinant 4 mg/ Sodium Chloride 20 ml @ 20 mls/hr 1X ONCE IV Last administered on 10/05/19at 10:09; Start 10/05/19 at 10:00; Stop 10/05/19 at 10:5 9; Status DC Alteplase, Recombinant 4 mg/ Sodium Chloride 20 ml @ 20 mls/hr 1X ONCE IV Last administered on 10/05/19at 10:09; Start 10/05/19 at 10:00; Stop 10/05/19 at 10:59; Status DC Potassium Acetate 60 meq/Magnesium Sulfate 10 meq/ Multivitamins 10 ml/Chromium/ Copper/Manganese/ Seleni/Zn 1 ml/ Insulin Human Regular 20 unit/ Total Parenteral Nutrition/Amino Acids/Dextrose/ Fat Emulsion Intravenous 1,920 ml @ 80 mls/hr TPN CONT IV Last administered on 10/05/19at 21:55; Start 10/05/19 at 22:00; Stop 10/06/19 at 21:59; Status DC Albumin Human 500 ml @ 125 mls/hr 1X ONCE IV Last administered on 10/06/19at 12:01; Start 10/06/19 at 11:15; Stop 10/06/19 at 15:14; Status DC Sodium Chloride 500 ml @ 500 mls/hr 1X ONCE IV Last administered on 10/06/19at 13:50; Start 10/06/19 at 11:15; Stop 10/06/19 at 12:14; Status DC Potassium Acetate 60 meq/Magnesium Sulfate 14 meq/ Multivitamins 10 ml/Chromium/ Copper/Manganese/ Seleni/Zn 1 ml/ Insulin Human Regular 20 unit/ Total Parenteral Nutrition/Amino Acids/Dextrose/ Fat Emulsion Intravenous 1,920 ml @ 80 mls/hr TPN CONT IV Last administered on 10/06/19at 22:26; Start 10/06/19 at 22:00; Stop 10/07/19 at 21:59; Status DC Ciprofloxacin/ Dextrose 200 ml @ 200 mls/hr Q12HR IV Last administered on 10/13/19at 08:27; Start 10/06/19 at 21:00; Stop 10/13/19 at 08:56; Status DC Albumin Human 250 ml @ 62.5 mls/hr 1X ONCE IV Last administered on 10/07/19at 11:09; Start 10/07/19 at 11:00; Stop 10/07/19 at 14:59; Status DC Furosemide (Lasix) 20 mg 1X ONCE IVP Last administered on 10/07/19at 14:52; Start 10/07/19 at 10:45; Stop 10/07/19 at 10:49; Status DC Potassium Acetate 60 meq/Magnesium Sulfate 14 meq/ Multivitamins 10 ml/Chromium/ Copper/Manganese/ Seleni/Zn 1 ml/ Insulin Human Regular 15 unit/ Total Parenteral Nutrition/Amino Acids/Dextrose/ Fat Emulsion Intravenous 1,920 ml @ 80 mls/hr TPN CONT IV Last administered on 10/07/19at 22:08; Start 10/07/19 at 22:00; Stop 10/08/19 at 21:59; Status DC Potassium Acetate 60 meq/Magnesium Sulfate 14 meq/ Multivitamins 10 ml/Chromium/ Copper/Manganese/ Seleni/Zn 1 ml/ Insulin Human Regular 15 unit/ Total Parenteral Nutrition/Amino Acids/Dextrose/ Fat Emulsion Intravenous 1,920 ml @ 80 mls/hr TPN CONT IV Last administered on 10/08/19at 22:12; Start 10/08/19 at 22:00; Stop 10/09/19 at 21:59; Status DC Potassium Acetate 60 meq/Magnesium Sulfate 14 meq/ Multivitamins 10 ml/Chromium/ Copper/Manganese/ Seleni/Zn 1 ml/ Insulin Human Regular 15 unit/ Total Parenteral Nutrition/Amino Acids/Dextrose/ Fat Emulsion Intravenous 1,920 ml @ 80 mls/hr TPN CONT IV Last administered on 10/09/19at 22:22; Start 10/09/19 at 22:00; Stop 10/10/19 at 21:59; Status DC Furosemide (Lasix) 20 mg 1X ONCE IVP Last administered on 10/10/19at 11:07; Start 10/10/19 at 10:30; Stop 10/10/19 at 10:34; Status DC Potassium Acetate 60 meq/Magnesium Sulfate 14 meq/ Multivitamins 10 ml/Chromium/ Copper/Manganese/ Seleni/Zn 1 ml/ Insulin Human Regular 15 unit/ Sodium Chloride 20 meq/Total Parenteral Nutrition/Amino Acids/Dextrose/ Fat Emulsion Intravenous 1,920 ml @ 80 mls/hr TPN CONT IV Last administered on 10/10/19at 21:54; Start 10/10/19 at 22:00; Stop 10/11/19 at 21:59; Status DC Potassium Acetate 30 meq/Magnesium Sulfate 14 meq/ Multivitamins 10 ml/Chromium/ Copper/Manganese/ Seleni/Zn 1 ml/ Insulin Human Regular 15 unit/ Sodium Chloride 20 meq/Potassium Chloride 30 meq/ Total Parenteral Nutrition/Amino Acids/Dextrose/ Fat Emulsion Intravenous 1,920 ml @ 80 mls/hr TPN CONT IV Last administered on 10/11/19at 21:46; Start 10/11/19 at 22:00; Stop 10/12/19 at 21:59; Status DC Sodium Chloride 80 meq/Potassium Chloride 30 meq/ Potassium Acetate 30 meq/Magnesium Sulfate 14 meq/ Multivitamins 10 ml/Chromium/ Copper/Manganese/ Seleni/Zn 1 ml/ Insulin Human Regular 15 unit/ Total Parenteral Nutrition/Amino Acids/Dextrose/ Fat Emulsion Intravenous 1,920 ml @ 80 mls/hr TPN CONT IV Last administered on 10/12/19at 22:33; Start 10/12/19 at 22:00; Stop 10/13/19 at 21:59; Status DC Furosemide (Lasix) 40 mg 1X ONCE IVP Last administered on 10/12/19at 16:27; Start 10/12/19 at 15:30; Stop 10/12/19 at 15:33; Status DC Albumin Human 250 ml @ 62.5 mls/hr 1X ONCE IV Last administered on 10/12/19at 16:27; Start 10/12/19 at 15:30; Stop 10/12/19 at 19:29; Status DC Sodium Chloride 80 meq/Potassium Chloride 30 meq/ Potassium Acetate 30 meq/Magnesium Sulfate 14 meq/ Multivitamins 10 ml/Chromium/ Copper/Manganese/ Seleni/Zn 1 ml/ Insulin Human Regular 15 unit/ Total Parenteral Nutrition/Amino Acids/Dextrose/ Fat Emulsion Intravenous 1,920 ml @ 80 mls/hr TPN CONT IV Last administered on 10/13/19at 22:25; Start 10/13/19 at 22:00; Stop 10/14/19 at 21:59; Status DC Sodium Chloride 80 meq/Potassium Chloride 30 meq/ Potassium Acetate 30 meq/Magnesium Sulfate 14 meq/ Multivitamins 10 ml/Chromium/ Copper/Manganese/ Seleni/Zn 1 ml/ Insulin Human Regular 15 unit/ Total Parenteral Nutrition/Amino Acids/Dextrose/ Fat Emulsion Intravenous 1,920 ml @ 80 mls/hr TPN CONT IV Last administered on 10/14/19at 21:32; Start 10/14/19 at 22:00; Stop 10/15/19 at 21:59; Status DC Sodium Chloride 80 meq/Potassium Chloride 30 meq/ Potassium Acetate 30 meq/Magnesium Sulfate 14 meq/ Multivitamins 10 ml/Chromium/ Copper/Manganese/ Seleni/Zn 1 ml/ Insulin Human Regular 15 unit/ Total Parenteral Nutrition/Amino Acids/Dextrose/ Fat Emulsion Intravenous 1,920 ml @ 80 mls/hr TPN CONT IV Last administered on 10/15/19at 21:53; Start 10/15/19 at 22:00; Stop 10/16/19 at 21:59; Status DC Acetylcysteine (Mucomyst 20% Resp Treatment) 600 mg RTBID NEB Last administered on 10/21/19at 08:00; Start 10/15/19 at 12:00 Sodium Chloride 80 meq/Potassium Chloride 30 meq/ Potassium Acetate 30 meq/Magnesium Sulfate 14 meq/ Multivitamins 10 ml/Chromium/ Copper/Manganese/ Seleni/Zn 1 ml/ Insulin Human Regular 15 unit/ Total Parenteral Nutrition/Amino Acids/Dextrose/ Fat Emulsion Intravenous 1,920 ml @ 80 mls/hr TPN CONT IV Last administered on 10/16/19at 22:06; Start 10/16/19 at 22:00; Stop 10/17/19 at 21:59; Status DC Meropenem 500 mg/ Sodium Chloride 50 ml @ 100 mls/hr Q6HRS IV Last administered on 10/21/19at 12:27; Start 10/16/19 at 18:00 Daptomycin 500 mg/ Sodium Chloride 50 ml @ 100 mls/hr Q24H IV Last administered on 10/20/19at 21:51; Start 10/16/19 at 19:00 Sodium Chloride 80 meq/Potassium Chloride 30 meq/ Potassium Acetate 30 meq/Magnesium Sulfate 14 meq/ Multivitamins 10 ml/Chromium/ Copper/Manganese/ Seleni/Zn 1 ml/ Insulin Human Regular 15 unit/ Total Parenteral Nutrition/Amino Acids/Dextrose/ Fat Emulsion Intravenous 1,920 ml @ 80 mls/hr TPN CONT IV Last administered on 10/17/19at 22:09; Start 10/17/19 at 22:00; Stop 10/18/19 at 21:59; Status DC Heparin Sodium (Porcine) 1000 unit/Sodium Chloride 1,001 ml @ 1,001 mls/hr 1X ONCE IRR ; Start 10/18/19 at 06:00; Stop 10/18/19 at 06:59; Status DC Propofol (Diprivan) 200 mg STK-MED ONCE IV ; Start 10/18/19 at 07:44; Stop 10/18/19 at 07:44; Status DC Lidocaine HCl (Lidocaine Pf 2% Vial) 5 ml STK-MED ONCE .ROUTE ; Start 10/18/19 at 07:44; Stop 10/18/19 at 07:44; Status DC Fentanyl Citrate (Fentanyl 2ml Vial) 100 mcg STK-MED ONCE .ROUTE ; Start 10/18/19 at 07:44; Stop 10/18/19 at 07:44; Status DC Rocuronium Ector (Zemuron) 100 mg STK-MED ONCE .ROUTE ; Start 10/18/19 at 07:44; Stop 10/18/19 at 07:44; Status DC Micafungin Sodium 100 mg/Dextrose 100 ml @ 100 mls/hr Q24H IV Last administered on 10/21/19at 07:56; Start 10/18/19 at 08:30 Bupivacaine HCl/ Epinephrine Bitart (Sensorcain-Epi 0.5%-1:063208 Mpf) 30 ml STK-MED ONCE .ROUTE ; Start 10/18/19 at 08:34; Stop 10/18/19 at 08:35; Status DC Iohexol (Omnipaque 300 Mg/ml) 50 ml STK-MED ONCE .ROUTE Last administered on 10/18/19at 13:30; Start 10/18/19 at 08:35; Stop 10/18/19 at 08:35; Status DC Sodium Chloride 80 meq/Potassium Chloride 30 meq/ Potassium Acetate 30 meq/Magnesium Sulfate 14 meq/ Multivitamins 10 ml/Chromium/ Copper/Manganese/ Seleni/Zn 1 ml/ Insulin Human Regular 15 unit/ Total Parenteral Nutrition/Amino Acids/Dextrose/ Fat Emulsion Intravenous 1,920 ml @ 80 mls/hr TPN CONT IV Last administered on 10/19/19at 01:22; Start 10/18/19 at 22:00; Stop 10/19/19 at 21:59; Status DC Phenylephrine HCl (Brayden-Synephrine Inj) 10 mg STK-MED ONCE .ROUTE ; Start 10/18/19 at 10:15; Stop 10/18/19 at 10:15; Status DC Desflurane (Suprane) 90 ml STK-MED ONCE IH ; Start 10/18/19 at 10:18; Stop 10/18/19 at 10:19; Status DC Albumin Human 500 ml @ As Directed STK-MED ONCE IV ; Start 10/18/19 at 11:06; Stop 10/18/19 at 11:06; Status DC Vasopressin (Vasostrict) 20 unit STK-MED ONCE .ROUTE ; Start 10/18/19 at 12:23; Stop 10/18/19 at 12:23; Status DC Phenylephrine HCl (Brayden-Synephrine Inj) 10 mg STK-MED ONCE .ROUTE ; Start 10/18/19 at 13:33; Stop 10/18/19 at 13:33; Status DC Phenylephrine HCl (Brayden-Synephrine Inj) 10 mg STK-MED ONCE .ROUTE ; Start 10/18/19 at 13:33; Stop 10/18/19 at 13:33; Status DC Ondansetron HCl (Zofran) 4 mg STK-MED ONCE .ROUTE ; Start 10/18/19 at 13:33; Stop 10/18/19 at 13:33; Status DC Enoxaparin Sodium (Lovenox 40mg Syringe) 40 mg Q24H SQ ; Start 10/19/19 at 08:00 Sodium Chloride (Normal Saline Flush) 3 ml QSHIFT PRN IV AFTER MEDS AND BLOOD DRAWS; Start 10/18/19 at 14:45 Naloxone HCl (Narcan) 0.4 mg PRN Q2MIN PRN IV SEE INSTRUCTIONS; Start 10/18/19 at 14:45 Sodium Chloride 1,000 ml @ 25 mls/hr Q24H IV Last administered on 10/20/19at 18:08; Start 10/18/19 at 14:33 Morphine Sulfate (Morphine Sulfate) 1 mg PRN Q1HR PRN IV PAIN; Start 10/18/19 at 14:45 Midazolam HCl 100 mg/Sodium Chloride 100 ml @ 1 mls/hr CONT PRN IV SEE I/O RECORD Last administered on 10/21/19at 10:01; Start 10/18/19 at 14:45 Phenylephrine HCl (PHENYLEPHRINE in 0.9% NACL PF) 1 mg STK-MED ONCE IV ; Start 10/18/19 at 14:44; Stop 10/18/19 at 14:45; Status DC Ephedrine Sulfate (ePHEDrine PF IN SALINE SYRINGE) 50 mg STK-MED ONCE IV ; Start 10/18/19 at 14:45; Stop 10/18/19 at 14:45; Status DC Vasopressin 20 unit/Dextrose 101 ml @ 12 mls/hr CONT PRN IV SEE I/O RECORD Last administered on 10/21/19at 07:26; Start 10/18/19 at 15:30 Sodium Chloride 1,000 ml @ 1,000 mls/hr 1X ONCE IV Last administered on 10/18/19at 15:42; Start 10/18/19 at 15:45; Stop 10/18/19 at 16:44; Status DC Albumin Human 500 ml @ 125 mls/hr 1X ONCE IV ; Start 10/18/19 at 16:00; Stop 10/18/19 at 19:59; Status DC Albumin Human 500 ml @ 125 mls/hr PRN Q1HR PRN IV PER PROTOCOL; Start 10/18/19 at 15:45 Magnesium Sulfate 50 ml @ 25 mls/hr 1X ONCE IV Last administered on 10/18/19at 17:02; Start 10/18/19 at 16:30; Stop 10/18/19 at 18:29; Status DC Sodium Bicarbonate (Sodium Bicarb Adult 8.4% Syr) 50 meq STK-MED ONCE .ROUTE ; Start 10/18/19 at 16:20; Stop 10/18/19 at 16:20; Status DC Sodium Bicarbonate (Sodium Bicarb Adult 8.4% Syr) 100 meq 1X ONCE IV Last administered on 10/18/19at 17:07; Start 10/18/19 at 16:30; Stop 10/18/19 at 16:31; Status DC Sodium Bicarbonate 150 meq/Dextrose 1,150 ml @ 75 mls/hr 1X ONCE IV Last administered on 10/18/19at 20:02; Start 10/18/19 at 16:30; Stop 10/19/19 at 07:49; Status DC Sodium Chloride 80 meq/Potassium Chloride 30 meq/ Potassium Acetate 30 meq/Magnesium Sulfate 14 meq/ Multivitamins 10 ml/Chromium/ Copper/Manganese/ Seleni/Zn 1 ml/ Insulin Human Regular 15 unit/ Total Parenteral Nutrition/Amino Acids/Dextrose/ Fat Emulsion Intravenous 1,920 ml @ 80 mls/hr TPN CONT IV Last administered on 10/19/19at 23:05; Start 10/19/19 at 22:00; Stop 10/20/19 at 21:59; Status DC Sodium Chloride 100 meq/Potassium Chloride 30 meq/ Potassium Acetate 30 meq/Magnesium Sulfate 12 meq/ Multivitamins 10 ml/Chromium/ Copper/Manganese/ Seleni/Zn 1 ml/ Insulin Human Regular 15 unit/ Total Parenteral Nutrition/Amino Acids/Dextrose/ Fat Emulsion Intravenous 1,920 ml @ 80 mls/hr TPN CONT IV Last administered on 10/20/19at 21:52; Start 10/20/19 at 22:00; Stop 10/21/19 at 21:59 Sodium Chloride 100 meq/Potassium Chloride 30 meq/ Potassium Acetate 30 meq/Magnesium Sulfate 12 meq/ Multivitamins 10 ml/Chromium/ Copper/Manganese/ Seleni/Zn 1 ml/ Insulin Human Regular 15 unit/ Total Parenteral Nutrition/Amino Acids/Dextrose/ Fat Emulsion Intravenous 1,920 ml @ 80 mls/hr TPN CONT IV ; Start 10/21/19 at 22:00; Stop 10/22/19 at 21:59 Active Scripts Active Reported Bisoprolol Fumarate 5 Mg Tablet 10 Mg PO DAILY Vitals/I & O Vital Sign - Last 24 Hours 10/20/19 10/20/19 10/20/19 10/20/19 16:00 16:00 17:00 17:20 Temp 97.9 97.9 Pulse 96 92 Resp 14 14 B/P (MAP) 110/67 (81) 113/68 (83) Pulse Ox 99 99 100 O2 Delivery Ventilator Mechanical Ventilator Ventilator Ventilator 10/20/19 10/20/19 10/20/19 10/20/19 18:00 19:00 20:00 20:00 Temp 97.7 97.7 Pulse 68 76 86 Resp 16 24 20 B/P (MAP) 123/72 (89) 157/91 (113) 155/99 (117) Pulse Ox 99 100 98 O2 Delivery Ventilator Ventilator Ventilator Mechanical Ventilator 10/20/19 10/20/19 10/20/19 10/20/19 20:15 20:18 21:00 22:00 Pulse 81 83 Resp 24 18 B/P (MAP) 109/53 (71) 156/88 (110) Pulse Ox 100 100 100 100 O2 Delivery Ventilator Ventilator Ventilator Ventilator 10/20/19 10/20/19 10/20/19 10/21/19 23:00 23:21 23:41 00:00 Pulse 90 Resp 18 19 24 B/P (MAP) 128/77 (94) Pulse Ox 99 100 100 O2 Delivery Ventilator Mechanical Ventilator O2 Flow Rate 40.0 40.0 10/21/19 10/21/19 10/21/19 10/21/19 00:01 00:10 01:00 02:00 Temp 99.4 99.4 Pulse 100 82 83 Resp 19 22 B/P (MAP) 135/77 (96) 131/76 (94) 127/75 (92) Pulse Ox 100 100 99 99 O2 Delivery Ventilator Ventilator Ventilator Ventilator 10/21/19 10/21/19 10/21/19 10/21/19 03:00 03:47 04:00 04:00 Temp 98.5 98.5 Pulse 83 87 Resp 22 23 B/P (MAP) 114/63 (80) 118/64 (82) Pulse Ox 99 100 99 O2 Delivery Ventilator Ventilator Ventilator Mechanical Ventilator 10/21/19 10/21/19 10/21/19 10/21/19 05:00 05:39 06:00 06:09 Pulse 86 83 Resp 25 18 26 26 B/P (MAP) 132/72 (92) 113/58 (76) Pulse Ox 99 100 99 99 O2 Delivery Ventilator Ventilator Ventilator O2 Flow Rate 40.0 40.0 10/21/19 10/21/19 10/21/19 10/21/19 07:00 07:15 07:30 07:45 Pulse 80 80 80 80 Resp 12 B/P (MAP) 128/59 (82) 132/70 (90) 128/59 (82) 131/74 (93) Pulse Ox 99 O2 Delivery Ventilator 10/21/19 10/21/19 10/21/19 10/21/19 08:00 08:00 08:15 08:30 Temp 98.8 98.8 Pulse 84 90 86 Resp 14 B/P (MAP) 102/61 (75) 94/53 (67) 102/61 (75) Pulse Ox 99 O2 Delivery Mechanical Ventilator Ventilator 10/21/19 10/21/19 10/21/19 10/21/19 08:34 08:45 09:00 09:15 Pulse 80 75 82 Resp 14 B/P (MAP) 108/67 (81) 140/76 (97) 138/73 (94) Pulse Ox 93 99 O2 Delivery Ventilator Ventilator 10/21/19 10/21/19 10/21/19 10/21/19 09:30 09:45 10:00 11:00 Pulse 82 82 82 83 Resp 14 14 B/P (MAP) 125/75 (92) 110/63 (79) 111/69 (83) 116/60 (78) Pulse Ox 99 99 O2 Delivery Ventilator Ventilator 10/21/19 10/21/19 10/21/19 10/21/19 11:11 11:30 12:00 13:00 Temp 98.2 98.2 Pulse 87 84 Resp 14 14 B/P (MAP) 104/64 (77) 103/58 (73) Pulse Ox 99 95 98 O2 Delivery Ventilator Ventilator Mechanical Ventilator Ventilator 10/21/19 10/21/19 10/21/19 10/21/19 13:42 13:55 14:00 14:30 Pulse 78 Resp 12 B/P (MAP) 114/68 (83) Pulse Ox 99 99 98 98 O2 Delivery Ventilator Ventilator Ventilator Ventilator 10/21/19 10/21/19 10/21/19 15:00 15:38 15:52 Pulse 86 Resp 14 B/P (MAP) 105/57 (73) Pulse Ox 98 98 O2 Delivery Ventilator Ventilator Mechanical Ventilator Intake and Output 10/20/19 10/20/19 10/21/19 15:00 23:00 07:00 Intake Total 300 ml 1618.79 ml 100 ml Output Total 545 ml 705 ml 1180 ml Balance -245 ml 913.79 ml -1080 ml Justicifation of Admission Dx: Justifications for Admission: Justification of Admission Dx: Yes GREG HERRERA MD Oct 21, 2019 15:55
[2019-10-21] MEDS: DAPTOmycin (GENERIC) IVPB 500 MG in IV NORMAL SALINE 50ML 50 ML IV SCH (20:01)
[2019-10-21] MEDS ORDERED: DEXTROSE 70% IV SCH ×10 (22:00)
[2019-10-21] MEDS ORDERED: AMINO ACID IV SCH ×10 (22:00)
[2019-10-21] MEDS ORDERED: [UNRECOGNIZED DRUG - OTHER] IV SCH ×10 (22:00)
[2019-10-21] MEDS ORDERED: TOTAL PARENTERAL NUTRITION IV SCH ×10 (22:00)
[2019-10-22] VITALS (36 sets, daily range): BP systolic 85–114; BP diastolic 43–67
[2019-10-22] MEDS: VASOPRESSIN 20 UNIT in IV DEXTROSE 5% 100ML 100 ML IV PRN ×2 (02:03→13:24)
[2019-10-22] MEDS: IPRATRPIUM/ALBUTEROL 0.5/2.5MG 3 ML NEBU. NEB SCH ×7 (04:00→23:59)
[2019-10-22] MEDS: INSULIN LISPRO 300 UNITS/3 ML VIAL. SQ SCH ×3 (06:00→18:00)
[2019-10-22] MEDS: MEROPENEM 500 MG in IV NORMAL SALINE 50ML 50 ML IV SCH ×5 (06:15→18:18)
[2019-10-22 06:31] LABS: BASO # 0.1 x10^3/uL (0.0-0.2); BASO % 0 % (0-3); EOS # 0.2 x10^3/uL (0.0-0.7); EOS % 1 % (0-3); HEMATOCRIT 22.3 % (36.0-47.0); HEMOGLOBIN 7.4 g/dL (12.0-15.5); LYMPH # 1.3 x10^3/uL (1.0-4.8); LYMPH % 5 % (24-48); MEAN CORPUSCULAR HEMOGLOBIN 30 pg (25-35); MEAN CORPUSCULAR HGB CONC 33 g/dL (31-37); MEAN CORPUSCULAR VOLUME 88 fL (79-100); MONO # 1.2 x10^3/uL (0.0-1.1); MONO % 5 % (0-9); NEUT % 89 % (31-73); PLATELET COUNT 269 x10^3/uL (140-400); RED BLOOD COUNT 2.52 x10^6/uL (3.50-5.40); RED CELL DISTRIBUTION WIDTH 15.1 % (11.5-14.5); WHITE BLOOD COUNT 25.9 x10^3/uL (4.0-11.0)
[2019-10-22 06:47] LABS: ALBUMIN 0.9 g/dL (3.4-5.0); ALBUMIN/GLOBULIN RATIO 0.4 (1.0-1.7); CALCIUM 8.6 mg/dL (8.5-10.1); CREATININE 0.5 mg/dL (0.6-1.0); GFR 131.1; POTASSIUM 4.2 mmol/L (3.5-5.1); TOTAL BILIRUBIN 0.6 mg/dL (0.2-1.0); TOTAL PROTEIN 3.2 g/dL (6.4-8.2)
--- NOTE | 2019-10-22 07:38 | PDOC ---
PULMONARY PROGRESS NOTES Subjective Remains A/C mode and sedated, continues with TPN/TF and vasopressin S/P Exploratory laparotomy, lysis of adhesions, subtotal cholecystectomy with cholangiogram, gastrojejunostomy tube placement, pancreatic necrosectomy on 10/17 no overnight concerns from nursing Vitals Vital Signs Date Time Temp Pulse Resp B/P (MAP) Pulse Ox O2 Delivery O2 Flow Rate FiO2 10/22/19 07:00 78 14 99/57 (71) 99 Ventilator 10/22/19 04:00 98.9 98.9 Comments trach/sedated on vent Lungs: Crackles Cardiovascular: S1, S2 Abdomen: Soft, Non-tender, Other (multiple KAYLIN drains ) Extremities: Other (+1 BLE edema) Skin: Warm Labs Laboratory Tests Test 10/20/19 08:00 10/20/19 12:43 10/20/19 18:10 10/21/19 05:30 O2 Saturation 98 % (92-99) Arterial Blood pH 7.36 (7.35-7.45) Arterial Blood pCO2 at Patient Temp 41 mmHg (35-46) Arterial Blood pO2 at Patient Temp 127 mmHg (75-108) Arterial Blood HCO3 23 mmol/L (21-28) Arterial Blood Base Excess -2 mmol/L (-3-3) FiO2 40 Glucose (Fingerstick) 184 mg/dL (70-99) 176 mg/dL (70-99) White Blood Count 29.7 x10^3/uL (4.0-11.0) Red Blood Count 2.85 x10^6/uL (3.50-5.40) Hemoglobin 8.3 g/dL (12.0-15.5) Hematocrit 25.0 % (36.0-47.0) Mean Corpuscular Volume 88 fL (79-100) Mean Corpuscular Hemoglobin 29 pg (25-35) Mean Corpuscular Hemoglobin Concent 33 g/dL (31-37) Red Cell Distribution Width 15.0 % (11.5-14.5) Platelet Count 260 x10^3/uL (140-400) Neutrophils (%) (Auto) 90 % (31-73) Lymphocytes (%) (Auto) 4 % (24-48) Monocytes (%) (Auto) 5 % (0-9) Eosinophils (%) (Auto) 1 % (0-3) Basophils (%) (Auto) 0 % (0-3) Neutrophils # (Auto) 26.6 x10^3/uL (1.8-7.7) Lymphocytes # (Auto) 1.3 x10^3/uL (1.0-4.8) Monocytes # (Auto) 1.5 x10^3/uL (0.0-1.1) Eosinophils # (Auto) 0.3 x10^3/uL (0.0-0.7) Basophils # (Auto) 0.0 x10^3/uL (0.0-0.2) Segmented Neutrophils % 87 % (35-66) Band Neutrophils % 7 % (0-9) Lymphocytes % 4 % (24-48) Monocytes % 2 % (0-10) Platelet Estimate Adequate (ADEQUATE) Polychromasia Present Anisocytosis Present Creatine Kinase 17 U/L (26-192) Test 10/21/19 06:01 10/21/19 08:00 10/21/19 10:16 10/21/19 12:26 Glucose (Fingerstick) 150 mg/dL (70-99) 179 mg/dL (70-99) O2 Saturation 85 % (92-99) Arterial Blood pH 7.36 (7.35-7.45) Arterial Blood pCO2 at Patient Temp 48 mmHg (35-46) Arterial Blood pO2 at Patient Temp 54 mmHg (75-108) Arterial Blood HCO3 27 mmol/L (21-28) Arterial Blood Base Excess 1 mmol/L (-3-3) FiO2 40 Sodium Level 133 mmol/L (136-145) Potassium Level 3.9 mmol/L (3.5-5.1) Chloride Level 102 mmol/L (98-107) Carbon Dioxide Level 28 mmol/L (21-32) Anion Gap 3 (6-14) Blood Urea Nitrogen 20 mg/dL (7-20) Creatinine 0.6 mg/dL (0.6-1.0) Estimated GFR (Cockcroft-Gault) 106.3 BUN/Creatinine Ratio 33 (6-20) Glucose Level 224 mg/dL (70-99) Calcium Level 8.6 mg/dL (8.5-10.1) Total Bilirubin 0.6 mg/dL (0.2-1.0) Aspartate Amino Transf (AST/SGOT) 42 U/L (15-37) Alanine Aminotransferase (ALT/SGPT) 98 U/L (14-59) Alkaline Phosphatase 199 U/L (46-116) Total Protein 3.7 g/dL (6.4-8.2) Albumin 1.0 g/dL (3.4-5.0) Albumin/Globulin Ratio 0.4 (1.0-1.7) Test 10/21/19 18:06 10/21/19 23:56 10/22/19 06:12 10/22/19 06:15 Glucose (Fingerstick) 143 mg/dL (70-99) 136 mg/dL (70-99) 141 mg/dL (70-99) White Blood Count 25.9 x10^3/uL (4.0-11.0) Red Blood Count 2.52 x10^6/uL (3.50-5.40) Hemoglobin 7.4 g/dL (12.0-15.5) Hematocrit 22.3 % (36.0-47.0) Mean Corpuscular Volume 88 fL (79-100) Mean Corpuscular Hemoglobin 30 pg (25-35) Mean Corpuscular Hemoglobin Concent 33 g/dL (31-37) Red Cell Distribution Width 15.1 % (11.5-14.5) Platelet Count 269 x10^3/uL (140-400) Neutrophils (%) (Auto) 89 % (31-73) Lymphocytes (%) (Auto) 5 % (24-48) Monocytes (%) (Auto) 5 % (0-9) Eosinophils (%) (Auto) 1 % (0-3) Basophils (%) (Auto) 0 % (0-3) Neutrophils # (Auto) 23.0 x10^3/uL (1.8-7.7) Lymphocytes # (Auto) 1.3 x10^3/uL (1.0-4.8) Monocytes # (Auto) 1.2 x10^3/uL (0.0-1.1) Eosinophils # (Auto) 0.2 x10^3/uL (0.0-0.7) Basophils # (Auto) 0.1 x10^3/uL (0.0-0.2) Sodium Level 132 mmol/L (136-145) Potassium Level 4.2 mmol/L (3.5-5.1) Chloride Level 101 mmol/L (98-107) Carbon Dioxide Level 29 mmol/L (21-32) Anion Gap 2 (6-14) Blood Urea Nitrogen 20 mg/dL (7-20) Creatinine 0.5 mg/dL (0.6-1.0) Estimated GFR (Cockcroft-Gault) 131.1 BUN/Creatinine Ratio 40 (6-20) Glucose Level 130 mg/dL (70-99) Calcium Level 8.6 mg/dL (8.5-10.1) Total Bilirubin 0.6 mg/dL (0.2-1.0) Aspartate Amino Transf (AST/SGOT) 28 U/L (15-37) Alanine Aminotransferase (ALT/SGPT) 68 U/L (14-59) Alkaline Phosphatase 210 U/L (46-116) Total Protein 3.2 g/dL (6.4-8.2) Albumin 0.9 g/dL (3.4-5.0) Albumin/Globulin Ratio 0.4 (1.0-1.7) Laboratory Tests Test 10/21/19 08:00 10/21/19 10:16 10/21/19 12:26 10/21/19 18:06 O2 Saturation 85 % (92-99) Arterial Blood pH 7.36 (7.35-7.45) Arterial Blood pCO2 at Patient Temp 48 mmHg (35-46) Arterial Blood pO2 at Patient Temp 54 mmHg (75-108) Arterial Blood HCO3 27 mmol/L (21-28) Arterial Blood Base Excess 1 mmol/L (-3-3) FiO2 40 Sodium Level 133 mmol/L (136-145) Potassium Level 3.9 mmol/L (3.5-5.1) Chloride Level 102 mmol/L (98-107) Carbon Dioxide Level 28 mmol/L (21-32) Anion Gap 3 (6-14) Blood Urea Nitrogen 20 mg/dL (7-20) Creatinine 0.6 mg/dL (0.6-1.0) Estimated GFR (Cockcroft-Gault) 106.3 BUN/Creatinine Ratio 33 (6-20) Glucose Level 224 mg/dL (70-99) Calcium Level 8.6 mg/dL (8.5-10.1) Total Bilirubin 0.6 mg/dL (0.2-1.0) Aspartate Amino Transf (AST/SGOT) 42 U/L (15-37) Alanine Aminotransferase (ALT/SGPT) 98 U/L (14-59) Alkaline Phosphatase 199 U/L (46-116) Total Protein 3.7 g/dL (6.4-8.2) Albumin 1.0 g/dL (3.4-5.0) Albumin/Globulin Ratio 0.4 (1.0-1.7) Glucose (Fingerstick) 179 mg/dL (70-99) 143 mg/dL (70-99) Test 10/21/19 23:56 10/22/19 06:12 10/22/19 06:15 Glucose (Fingerstick) 136 mg/dL (70-99) 141 mg/dL (70-99) White Blood Count 25.9 x10^3/uL (4.0-11.0) Red Blood Count 2.52 x10^6/uL (3.50-5.40) Hemoglobin 7.4 g/dL (12.0-15.5) Hematocrit 22.3 % (36.0-47.0) Mean Corpuscular Volume 88 fL (79-100) Mean Corpuscular Hemoglobin 30 pg (25-35) Mean Corpuscular Hemoglobin Concent 33 g/dL (31-37) Red Cell Distribution Width 15.1 % (11.5-14.5) Platelet Count 269 x10^3/uL (140-400) Neutrophils (%) (Auto) 89 % (31-73) Lymphocytes (%) (Auto) 5 % (24-48) Monocytes (%) (Auto) 5 % (0-9) Eosinophils (%) (Auto) 1 % (0-3) Basophils (%) (Auto) 0 % (0-3) Neutrophils # (Auto) 23.0 x10^3/uL (1.8-7.7) Lymphocytes # (Auto) 1.3 x10^3/uL (1.0-4.8) Monocytes # (Auto) 1.2 x10^3/uL (0.0-1.1) Eosinophils # (Auto) 0.2 x10^3/uL (0.0-0.7) Basophils # (Auto) 0.1 x10^3/uL (0.0-0.2) Sodium Level 132 mmol/L (136-145) Potassium Level 4.2 mmol/L (3.5-5.1) Chloride Level 101 mmol/L (98-107) Carbon Dioxide Level 29 mmol/L (21-32) Anion Gap 2 (6-14) Blood Urea Nitrogen 20 mg/dL (7-20) Creatinine 0.5 mg/dL (0.6-1.0) Estimated GFR (Cockcroft-Gault) 131.1 BUN/Creatinine Ratio 40 (6-20) Glucose Level 130 mg/dL (70-99) Calcium Level 8.6 mg/dL (8.5-10.1) Total Bilirubin 0.6 mg/dL (0.2-1.0) Aspartate Amino Transf (AST/SGOT) 28 U/L (15-37) Alanine Aminotransferase (ALT/SGPT) 68 U/L (14-59) Alkaline Phosphatase 210 U/L (46-116) Total Protein 3.2 g/dL (6.4-8.2) Albumin 0.9 g/dL (3.4-5.0) Albumin/Globulin Ratio 0.4 (1.0-1.7) Medications Active Scripts Medications Dose Route/Sig Max Daily Dose Days Date Category Bisoprolol Fumarate 5 Mg Tablet 10 Mg PO DAILY 07/04/19 Reported Comments CXR 10/16/19 IMPRESSION: No significant interval change compared to 10/13/2019. ct abdomen /pelvis 09/23 1. Removal of the percutaneous pigtail drainage catheters since the prior exam. Sequela of pancreatitis with extensive pseudocysts again demonstrated, the right-sided collections are slightly larger since the prior exam, the left-sided collections are stable. See above. 2. Moderate to large left pleural effusion with atelectasis and collapse of most of the left lower lobe, stable. Small right pleural effusion is stable. 3. Gallstone. ct chest 10/02 reviewed GRAM NEG COCCOBACILLI:MANY SQUAMOUS EPI CELL:RARE PMN (WBCs):FEW Unless otherwise specified, Testing Performed by: [address] [address] For Inquires, the Physician may contact the Microbiology department at [phone] RESPIRATORY CULTURE Final Final MANY GRAM NEGATIVE RODS on 10/03/19 at 1101 FINAL ID= [[email or web address]] MICRO CHARGES PSEUDOMONAS AERUGINOSA ANTIMICROBIAL SUSCEPTIBILITY Final Comment NEG ALEXANDRA 56 PSEUDOMONAS AERUGINOSA ANTIBIOTIC RESULT INTERPRETATION AMIKACIN <=16 S AZTREONAM <=4 S CEFTAZIDIME <=1 S CIPROFLOXACIN <=0.25 S CEFEPIME <=2 S CEFTAZIDIME/AVIBACTAM <=4 S GENTAMICIN <=2 S LEVOFLOXACIN <=0.5 S Impression . IMPRESSION: 1. Acute hypoxemic respiratory failure secondary to ARDS status post trach, developed anemia 09/24, blood drainage from RLQ abdomen drain site, and surrounding firmness / developed septic shock 09/24 from abdomen source, required levo / s/p 3 new drains 09/24 with brown color drainage, 2. Gallstone pancreatitis, now with ongoing bleeding from prior drain. Anemic. s/p Tx multiple units over several days 3. septic shock/sepsis, recurrent 09/24, source abdomen. , 4. Acute kidney injury-, Off HD--renal function decling. suspect JUANA on CKD due to hypotension , improved now 5. Acute gallstone pancreatitis. 6. Hypoalbuminemia. 7. Moderate persistent effusions, s/p left thora 08/29, reaccumulation of left effusion. O2 requirement not changed. 8. Fever- ,hypotension. suspect recurrent sepsis/ likely pancreatic source. Per ID, per surgery-- 9. Chronic anemia-- ongoing / s/p PRBC 10. Covid 19 testing negative 11. Moderate to large ascites-S/P paracentisis 12.S/P paracentisis with 4 liters removed on 08/03/19 13. S/P IR drain placement on 08/26/2019, removal, re inserted 09/24 14. Depression/Anxiety 15. Increase effusion, ? loculated/ s/p chest tube.. drainage slowing down. 10/17 S/P Exploratory laparotomy, lysis of adhesions, subtotal cholecystectomy with cholangiogram, gastrojejunostomy tube placement, pancreatic necrosectomy leukocytosis- improving Plan . Continue current vent support in A/C mode, folloow ABG and CXR-- not ready for weaning S/P Exploratory laparotomy, lysis of adhesions, subtotal cholecystectomy with cholangiogram, gastrojejunostomy tube placement, pancreatic necrosectomy with multiple drains in place-- on 10/17 ABX per ID Follow surgery recs Continue TF and TPN for nutrition support Vasopressors for hypotension to keep MAP above 65 DVT/GI PPX D/W RN and RT CC time 30 minutes HARMEET BEE MD Oct 22, 2019 07:38
[2019-10-22] MEDS: ACETYLCYSTEINE 20% for RESP TX 600 MG/3 ML. NEB SCH ×2 (07:42→18:32)
[2019-10-22] MEDS: PANTOPRAZOLE IV PUSH 40 MG VIAL. IVP SCH (07:50)
[2019-10-22] MEDS: MICAFUNGIN 100 MG in IV DEXTROSE 5% 100ML 100 ML IV SCH (07:51)
--- NOTE | 2019-10-22 09:22 | PDOC ---
SURGICAL PROGRESS NOTE Subjective Patient sedated and ventilated Vital Signs Vital Signs Date Time Temp Pulse Resp B/P (MAP) Pulse Ox O2 Delivery O2 Flow Rate FiO2 10/22/19 09:00 90 17 107/56 (73) 99 Ventilator 10/22/19 08:00 98.6 98.6 I&O Intake and Output 10/22/19 07:00 Intake Total 2949.25 ml Output Total 2351 ml Balance 598.25 ml IV Total 2474.25 ml Tube Feeding 475 ml Output Urine Total 1061 ml Gastric Drainage Total 150 ml Chest Tube Drainage Total 50 ml Drainage Total 1090 ml PATIENT HAS A ROSARIO: Yes General: Other (Sedated) Abdomen: Soft, No tenderness, Other (Wounds clean dry and intact, large Pleur- evac drains with minimal output KAYLIN drain with large serous output) Labs Laboratory Tests Test 10/20/19 12:43 10/20/19 18:10 10/21/19 05:30 10/21/19 06:01 Glucose (Fingerstick) 184 mg/dL (70-99) 176 mg/dL (70-99) 150 mg/dL (70-99) White Blood Count 29.7 x10^3/uL (4.0-11.0) Red Blood Count 2.85 x10^6/uL (3.50-5.40) Hemoglobin 8.3 g/dL (12.0-15.5) Hematocrit 25.0 % (36.0-47.0) Mean Corpuscular Volume 88 fL (79-100) Mean Corpuscular Hemoglobin 29 pg (25-35) Mean Corpuscular Hemoglobin Concent 33 g/dL (31-37) Red Cell Distribution Width 15.0 % (11.5-14.5) Platelet Count 260 x10^3/uL (140-400) Neutrophils (%) (Auto) 90 % (31-73) Lymphocytes (%) (Auto) 4 % (24-48) Monocytes (%) (Auto) 5 % (0-9) Eosinophils (%) (Auto) 1 % (0-3) Basophils (%) (Auto) 0 % (0-3) Neutrophils # (Auto) 26.6 x10^3/uL (1.8-7.7) Lymphocytes # (Auto) 1.3 x10^3/uL (1.0-4.8) Monocytes # (Auto) 1.5 x10^3/uL (0.0-1.1) Eosinophils # (Auto) 0.3 x10^3/uL (0.0-0.7) Basophils # (Auto) 0.0 x10^3/uL (0.0-0.2) Segmented Neutrophils % 87 % (35-66) Band Neutrophils % 7 % (0-9) Lymphocytes % 4 % (24-48) Monocytes % 2 % (0-10) Platelet Estimate Adequate (ADEQUATE) Polychromasia Present Anisocytosis Present Creatine Kinase 17 U/L (26-192) Test 10/21/19 08:00 10/21/19 10:16 10/21/19 12:26 10/21/19 18:06 O2 Saturation 85 % (92-99) Arterial Blood pH 7.36 (7.35-7.45) Arterial Blood pCO2 at Patient Temp 48 mmHg (35-46) Arterial Blood pO2 at Patient Temp 54 mmHg (75-108) Arterial Blood HCO3 27 mmol/L (21-28) Arterial Blood Base Excess 1 mmol/L (-3-3) FiO2 40 Sodium Level 133 mmol/L (136-145) Potassium Level 3.9 mmol/L (3.5-5.1) Chloride Level 102 mmol/L (98-107) Carbon Dioxide Level 28 mmol/L (21-32) Anion Gap 3 (6-14) Blood Urea Nitrogen 20 mg/dL (7-20) Creatinine 0.6 mg/dL (0.6-1.0) Estimated GFR (Cockcroft-Gault) 106.3 BUN/Creatinine Ratio 33 (6-20) Glucose Level 224 mg/dL (70-99) Calcium Level 8.6 mg/dL (8.5-10.1) Total Bilirubin 0.6 mg/dL (0.2-1.0) Aspartate Amino Transf (AST/SGOT) 42 U/L (15-37) Alanine Aminotransferase (ALT/SGPT) 98 U/L (14-59) Alkaline Phosphatase 199 U/L (46-116) Total Protein 3.7 g/dL (6.4-8.2) Albumin 1.0 g/dL (3.4-5.0) Albumin/Globulin Ratio 0.4 (1.0-1.7) Glucose (Fingerstick) 179 mg/dL (70-99) 143 mg/dL (70-99) Test 10/21/19 23:56 10/22/19 06:12 10/22/19 06:15 Glucose (Fingerstick) 136 mg/dL (70-99) 141 mg/dL (70-99) White Blood Count 25.9 x10^3/uL (4.0-11.0) Red Blood Count 2.52 x10^6/uL (3.50-5.40) Hemoglobin 7.4 g/dL (12.0-15.5) Hematocrit 22.3 % (36.0-47.0) Mean Corpuscular Volume 88 fL (79-100) Mean Corpuscular Hemoglobin 30 pg (25-35) Mean Corpuscular Hemoglobin Concent 33 g/dL (31-37) Red Cell Distribution Width 15.1 % (11.5-14.5) Platelet Count 269 x10^3/uL (140-400) Neutrophils (%) (Auto) 89 % (31-73) Lymphocytes (%) (Auto) 5 % (24-48) Monocytes (%) (Auto) 5 % (0-9) Eosinophils (%) (Auto) 1 % (0-3) Basophils (%) (Auto) 0 % (0-3) Neutrophils # (Auto) 23.0 x10^3/uL (1.8-7.7) Lymphocytes # (Auto) 1.3 x10^3/uL (1.0-4.8) Monocytes # (Auto) 1.2 x10^3/uL (0.0-1.1) Eosinophils # (Auto) 0.2 x10^3/uL (0.0-0.7) Basophils # (Auto) 0.1 x10^3/uL (0.0-0.2) Sodium Level 132 mmol/L (136-145) Potassium Level 4.2 mmol/L (3.5-5.1) Chloride Level 101 mmol/L (98-107) Carbon Dioxide Level 29 mmol/L (21-32) Anion Gap 2 (6-14) Blood Urea Nitrogen 20 mg/dL (7-20) Creatinine 0.5 mg/dL (0.6-1.0) Estimated GFR (Cockcroft-Gault) 131.1 BUN/Creatinine Ratio 40 (6-20) Glucose Level 130 mg/dL (70-99) Calcium Level 8.6 mg/dL (8.5-10.1) Total Bilirubin 0.6 mg/dL (0.2-1.0) Aspartate Amino Transf (AST/SGOT) 28 U/L (15-37) Alanine Aminotransferase (ALT/SGPT) 68 U/L (14-59) Alkaline Phosphatase 210 U/L (46-116) Total Protein 3.2 g/dL (6.4-8.2) Albumin 0.9 g/dL (3.4-5.0) Albumin/Globulin Ratio 0.4 (1.0-1.7) Laboratory Tests Test 10/21/19 10:16 10/21/19 12:26 10/21/19 18:06 10/21/19 23:56 Sodium Level 133 mmol/L (136-145) Potassium Level 3.9 mmol/L (3.5-5.1) Chloride Level 102 mmol/L (98-107) Carbon Dioxide Level 28 mmol/L (21-32) Anion Gap 3 (6-14) Blood Urea Nitrogen 20 mg/dL (7-20) Creatinine 0.6 mg/dL (0.6-1.0) Estimated GFR (Cockcroft-Gault) 106.3 BUN/Creatinine Ratio 33 (6-20) Glucose Level 224 mg/dL (70-99) Calcium Level 8.6 mg/dL (8.5-10.1) Total Bilirubin 0.6 mg/dL (0.2-1.0) Aspartate Amino Transf (AST/SGOT) 42 U/L (15-37) Alanine Aminotransferase (ALT/SGPT) 98 U/L (14-59) Alkaline Phosphatase 199 U/L (46-116) Total Protein 3.7 g/dL (6.4-8.2) Albumin 1.0 g/dL (3.4-5.0) Albumin/Globulin Ratio 0.4 (1.0-1.7) Glucose (Fingerstick) 179 mg/dL (70-99) 143 mg/dL (70-99) 136 mg/dL (70-99) Test 10/22/19 06:12 10/22/19 06:15 Glucose (Fingerstick) 141 mg/dL (70-99) White Blood Count 25.9 x10^3/uL (4.0-11.0) Red Blood Count 2.52 x10^6/uL (3.50-5.40) Hemoglobin 7.4 g/dL (12.0-15.5) Hematocrit 22.3 % (36.0-47.0) Mean Corpuscular Volume 88 fL (79-100) Mean Corpuscular Hemoglobin 30 pg (25-35) Mean Corpuscular Hemoglobin Concent 33 g/dL (31-37) Red Cell Distribution Width 15.1 % (11.5-14.5) Platelet Count 269 x10^3/uL (140-400) Neutrophils (%) (Auto) 89 % (31-73) Lymphocytes (%) (Auto) 5 % (24-48) Monocytes (%) (Auto) 5 % (0-9) Eosinophils (%) (Auto) 1 % (0-3) Basophils (%) (Auto) 0 % (0-3) Neutrophils # (Auto) 23.0 x10^3/uL (1.8-7.7) Lymphocytes # (Auto) 1.3 x10^3/uL (1.0-4.8) Monocytes # (Auto) 1.2 x10^3/uL (0.0-1.1) Eosinophils # (Auto) 0.2 x10^3/uL (0.0-0.7) Basophils # (Auto) 0.1 x10^3/uL (0.0-0.2) Sodium Level 132 mmol/L (136-145) Potassium Level 4.2 mmol/L (3.5-5.1) Chloride Level 101 mmol/L (98-107) Carbon Dioxide Level 29 mmol/L (21-32) Anion Gap 2 (6-14) Blood Urea Nitrogen 20 mg/dL (7-20) Creatinine 0.5 mg/dL (0.6-1.0) Estimated GFR (Cockcroft-Gault) 131.1 BUN/Creatinine Ratio 40 (6-20) Glucose Level 130 mg/dL (70-99) Calcium Level 8.6 mg/dL (8.5-10.1) Total Bilirubin 0.6 mg/dL (0.2-1.0) Aspartate Amino Transf (AST/SGOT) 28 U/L (15-37) Alanine Aminotransferase (ALT/SGPT) 68 U/L (14-59) Alkaline Phosphatase 210 U/L (46-116) Total Protein 3.2 g/dL (6.4-8.2) Albumin 0.9 g/dL (3.4-5.0) Albumin/Globulin Ratio 0.4 (1.0-1.7) Problem List Problems Medical Problems: (1) Acute pancreatitis Status: Acute (2) Cholelithiasis Status: Acute Assessment/Plan Status post pancreatic debridement awaiting return of bowel function prior to increase in tube feeds Continue to wean to off of pressors as tolerated Supportive care, may start Lovenox prophylaxis DVT Justicifation of Admission Dx: Justifications for Admission: Justification of Admission Dx: Yes CARIN MALDONADO MD Oct 22, 2019 09:22
--- NOTE | 2019-10-22 09:27 | PDOC ---
Infectious Disease Note Subjective Subjective Sedated Remains on ventilator support, FiO2 40% No fevers last 72 hrs TPN Still on vasopressin, off levophed ROS ROS unobtainable due to patient's condition Vital Sign Vital Signs Vital Signs Date Time Temp Pulse Resp B/P (MAP) Pulse Ox O2 Delivery O2 Flow Rate FiO2 10/22/19 09:00 90 17 107/56 (73) 99 Ventilator 10/22/19 08:00 98.6 98.6 Physical Exam PHYSICAL EXAM GENERAL: Sedated, ill appearing HEENT: Pupils equal, oral cavity dry. + NGT NECK: Tracheostomy LUNGS: Diminished aeration bases, CT on left HEART: S1, S2, regular w/ PVCs ABDOMEN: Distentied, bowel sounds hypoactive, soft, yoselin x2, 3 KAYLIN drains, G-J tube and + wound vac : Lind in place EXTREMITIES: Generalized edema, no cyanosis. SCDs & Podus boots bilaterally SKIN: warm touch. No signs of rash. LUE-PICC without signs of complications LUE art-line out, mottling left forearm, some better. RP palpable, cap refill brisk. Labs Lab Laboratory Tests Test 10/21/19 10:16 10/21/19 12:26 10/21/19 18:06 10/21/19 23:56 Sodium Level 133 mmol/L (136-145) Potassium Level 3.9 mmol/L (3.5-5.1) Chloride Level 102 mmol/L (98-107) Carbon Dioxide Level 28 mmol/L (21-32) Anion Gap 3 (6-14) Blood Urea Nitrogen 20 mg/dL (7-20) Creatinine 0.6 mg/dL (0.6-1.0) Estimated GFR (Cockcroft-Gault) 106.3 BUN/Creatinine Ratio 33 (6-20) Glucose Level 224 mg/dL (70-99) Calcium Level 8.6 mg/dL (8.5-10.1) Total Bilirubin 0.6 mg/dL (0.2-1.0) Aspartate Amino Transf (AST/SGOT) 42 U/L (15-37) Alanine Aminotransferase (ALT/SGPT) 98 U/L (14-59) Alkaline Phosphatase 199 U/L (46-116) Total Protein 3.7 g/dL (6.4-8.2) Albumin 1.0 g/dL (3.4-5.0) Albumin/Globulin Ratio 0.4 (1.0-1.7) Glucose (Fingerstick) 179 mg/dL (70-99) 143 mg/dL (70-99) 136 mg/dL (70-99) Test 10/22/19 06:12 10/22/19 06:15 Glucose (Fingerstick) 141 mg/dL (70-99) White Blood Count 25.9 x10^3/uL (4.0-11.0) Red Blood Count 2.52 x10^6/uL (3.50-5.40) Hemoglobin 7.4 g/dL (12.0-15.5) Hematocrit 22.3 % (36.0-47.0) Mean Corpuscular Volume 88 fL (79-100) Mean Corpuscular Hemoglobin 30 pg (25-35) Mean Corpuscular Hemoglobin Concent 33 g/dL (31-37) Red Cell Distribution Width 15.1 % (11.5-14.5) Platelet Count 269 x10^3/uL (140-400) Neutrophils (%) (Auto) 89 % (31-73) Lymphocytes (%) (Auto) 5 % (24-48) Monocytes (%) (Auto) 5 % (0-9) Eosinophils (%) (Auto) 1 % (0-3) Basophils (%) (Auto) 0 % (0-3) Neutrophils # (Auto) 23.0 x10^3/uL (1.8-7.7) Lymphocytes # (Auto) 1.3 x10^3/uL (1.0-4.8) Monocytes # (Auto) 1.2 x10^3/uL (0.0-1.1) Eosinophils # (Auto) 0.2 x10^3/uL (0.0-0.7) Basophils # (Auto) 0.1 x10^3/uL (0.0-0.2) Sodium Level 132 mmol/L (136-145) Potassium Level 4.2 mmol/L (3.5-5.1) Chloride Level 101 mmol/L (98-107) Carbon Dioxide Level 29 mmol/L (21-32) Anion Gap 2 (6-14) Blood Urea Nitrogen 20 mg/dL (7-20) Creatinine 0.5 mg/dL (0.6-1.0) Estimated GFR (Cockcroft-Gault) 131.1 BUN/Creatinine Ratio 40 (6-20) Glucose Level 130 mg/dL (70-99) Calcium Level 8.6 mg/dL (8.5-10.1) Total Bilirubin 0.6 mg/dL (0.2-1.0) Aspartate Amino Transf (AST/SGOT) 28 U/L (15-37) Alanine Aminotransferase (ALT/SGPT) 68 U/L (14-59) Alkaline Phosphatase 210 U/L (46-116) Total Protein 3.2 g/dL (6.4-8.2) Albumin 0.9 g/dL (3.4-5.0) Albumin/Globulin Ratio 0.4 (1.0-1.7) Micro 10/15. BLOOD CULTURE Preliminary NO GROWTH AFTER 5 DAYS 10/17. GRAM STAIN Final Final SQUAMOUS EPI CELL:RARE PMN (WBCs):FEW YEAST:FEW ANAEROBIC-AEROBIC CULTURE Preliminary Preliminary MANY YEAST on 10/21/19 at 1354 FINAL ID= [DEVYN PARAPSILOSIS] DEVYN PARAPSILOSIS Objective Assessment Patient with prolonged hospitalization more than 3 months Multiple medical problems Multiple surgical procedures S/P Exp. Lap, SAURABH, subtotal cholecystectomy with cholangiogram, G-J tube placement & pancreatic necrosectomy on October 17 C. parapsilosis Leucocytosis - leukomoid reaction likely postoperative, improving Fever intermittently source likely GI, imrpoved Acute gallstone pancreatitis with persistent necrosis -CT a/p 07/27. Increased ascites. 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 status post KAYLIN drain placement; C. parapsilosis. s/p drain 08/23 + yeast & high amylase; s/p additional drain on 08/25. Drains removed. -08/23. fluid devyn parapsilosis fluid, amylase high - 09/23 showed multiple pseudocysts, slight larger on the right. s/p drains x 3, 09/24. + PSAE (MDRO-R Cefepime, Zosyn ALEXANDRA < 64) and yeast, -09/24 s/p drain replacement x 3; fluid cult PSAE (MDRO), yeast; treated Ascites s/p paracentesis 08/02 & 08/23. C. parapsilosis Cholelithiasis with thickening of the gallbladder wall. JUANA, Hyperkalemia, Metabolic acidosis off dialysis Acute hypoxic resp failure. trach/vent. sputum 09/30 + PSAE (I merrem) Pleural effusions s/p left thoracentesis, 08/29. no culture. s/p left chest tube, 10/02 no growth Hypocalcemia Prediabetes HTN Anemia s/p PRBCs Plan Plan of Care continue dapto, merrem and micafungin Last CK 17 Monitor labs wound care /drain management as directed Monitor left forearm Contact isolation for CRE/MDRO Critically ill D/w nursing Patient discussed in detail with WASHCLOTH FOLDER. Chart reviewed in detail. Above plan co- formulated and agreed upon with WASHCLOTH FOLDER on 10/22/2019 FRANCA HOBSON APRN Oct 22, 2019 09:26 GERMAN TORRES MD Oct 23, 2019 19:36
[2019-10-22] MEDS: ENOXAPARIN 40 MG/0.4 ML SYRINGE. SQ SCH (09:35)
[2019-10-22] MEDS: TPN PER PHARMACY MC PRN (10:33)
--- NOTE | 2019-10-22 10:36 | NUR ---
Pharmacy TPN Dosing Note S: SCOTT CUELLAR is a 48 year old F Currently receiving Central Continuous TPN started 07/06/19 B:Pertinent PMH: Necrotizing pancreatitis Current diet: NPO LABS: Sodium: 132 Potassium: 4.2 Chloride: 101 Calcium: 8.6 Corrected Calcium: 11.08 Magnesium: 2.1 CO2: 29 SCr: 0.5 Glucose: 141 Albumin: 0.9 AST: 28 ALT: 68 TPN FORMULA: TPN TYPE: Central Continuous AMINO ACIDS: 80 gm DEXTROSE: 250 gm LIPIDS: 20 gm SODIUM CHLORIDE: 100 mEq SODIUM ACETATE: - mEq SODIUM PHOSPHATE: - mmol POTASSIUM CHLORIDE: 30 mEq POTASSIUM ACETATE: 30 mEq POTASSIUM PHOSPHATE: - mmol MAGNESIUM: 12 mEq CALCIUM: - mEq INSULIN: 15 units MULTIPLE VITAMIN: 10 ml TRACE ELEMENTS: 1 ml ml(s) TPN PLAN: 10/21 decrease rate 2'hyponatremia, REPEAT LABS IN AM R: Continue TPN Will monitor electrolytes, glucose, and tolerance to TPN. LAURA LEO [facility], 10/22/19 1033
[2019-10-22] MEDS: IV NORMAL SALINE 1000ML BAG 1,000 ML IV SCH (12:37)
--- NOTE | 2019-10-22 13:21 | PDOC ---
PROGRESS NOTES Chief Complaint Chief Complaint Impression and plan: Acute hypoxic Respiratory failure required mechanical ventilation Tracheostomy bilateral pleural effusions/pulm edema s/p Throacentesis on 10/03/2019 Severe Acute gallstone pancreatitis (not a surgical candidate at this time) with necrosis Acute kidney failure now requiring dialysis Gallstones (Calculus of gallbladder with acute cholecystitis without obstruction) HTN Intractable pain Intractable nausea Covid 19 negative. Acute on chronic anemia EEG: No seizure activityFever - better currently - intermittent could be from underlying pancreatitis blood cults 08/21 - neg so far ? Ileus with vomiting Abd distention - U/S and CT reviewed s/p 0.4 L of opaque, debris-containing ascites was removed 08/23 Acute pancreatitis with persistent necrosis Gallstone pancreatitis with necrosis. -CT A/P 09/23 showed multiple pseudocysts, slight larger on the right. s/p drains x 3, 09/24. + PSAE (MDRO-R Cefepime, Zosyn ALEXANDRA < 64) and yeast, -s/p drain 08/14. C. parapsilosis. s/p drain 08/23 + yeast & high amylase; s/p additional drain on 08/25. Drains removed. Ascites s/p paracentesis 08/02 & 08/23. C. parapsilosis JUANA. off HD. A large fluid collection in the pancreatic bed has slightly decreased in size, described below, the pancreas itself is difficult to visualize, which could be due to necrosis or obscuration of pancreatic parenchyma from the surrounding fluid collection.10/02 - 08/14 status post KAYLIN drain placement + C paropsilosis. s/p additional drains 08/25 Anemia - S/p PRBCs Cholelithiasis with thickening of the gallbladder wall. Leucocytosis improving JUANA, hyperkalemia, Metabolic acidosis off dialysis hypocalcemia Prediabetes HTN s/p trach ESRD on HD Hyperglycemia severe protein-caloric malnutrition Moderate to large left pleural effusion with atelectasis and collapse of most of the left lower lobe, stable Poor prognosis History of Present Illness History of Present Illness s/p surg for pancreatic inflammation, peripancreatic fluid and inflammatory changes around the pancreas consistent with pancreatitis. Gallstone pancreatitis with necrosis. Necrotizing pancreatitis She remains critically ill Vitals Vitals Vital Signs Date Time Temp Pulse Resp B/P (MAP) Pulse Ox O2 Delivery O2 Flow Rate FiO2 10/22/19 12:30 86 101/57 (72) 10/22/19 12:19 99 Ventilator 10/22/19 11:57 98.6 18 98.6 Physical Exam Physical Exam GENERAL: Sedated, ill appearing HEENT: Pupils equal, oral cavity dry. + NGT NECK: Tracheostomy LUNGS: Diminished aeration bases, CT on left HEART: S1, S2, regular w/ PVCs ABDOMEN: Distentied, bowel sounds hypoactive, soft, yoselin x2, 3 KAYLIN drains, G-J tube and + wound vac : Lind in place EXTREMITIES: Generalized edema, no cyanosis. SCDs & Podus boots bilaterally SKIN: warm touch. No signs of rash. LUE-PICC without signs of complications LUE art-line out, mottling left forearm, some better. RP palpable, cap refill brisk. General: Other (Sedated) Heart: Regular rate (SR/ST), Other (distant heart sounds) Lungs: Crackles Abdomen: Soft, No tenderness, Other (Wounds clean dry and intact, large Pleur- evac drains with minimal output KAYLIN drain with large serous output) Extremities: Other (Diffuse edema) Skin: No rashes, No significant lesion Labs LABS Laboratory Tests Test 10/21/19 18:06 10/21/19 23:56 10/22/19 06:12 10/22/19 06:15 Glucose (Fingerstick) 143 mg/dL (70-99) 136 mg/dL (70-99) 141 mg/dL (70-99) White Blood Count 25.9 x10^3/uL (4.0-11.0) Red Blood Count 2.52 x10^6/uL (3.50-5.40) Hemoglobin 7.4 g/dL (12.0-15.5) Hematocrit 22.3 % (36.0-47.0) Mean Corpuscular Volume 88 fL (79-100) Mean Corpuscular Hemoglobin 30 pg (25-35) Mean Corpuscular Hemoglobin Concent 33 g/dL (31-37) Red Cell Distribution Width 15.1 % (11.5-14.5) Platelet Count 269 x10^3/uL (140-400) Neutrophils (%) (Auto) 89 % (31-73) Lymphocytes (%) (Auto) 5 % (24-48) Monocytes (%) (Auto) 5 % (0-9) Eosinophils (%) (Auto) 1 % (0-3) Basophils (%) (Auto) 0 % (0-3) Neutrophils # (Auto) 23.0 x10^3/uL (1.8-7.7) Lymphocytes # (Auto) 1.3 x10^3/uL (1.0-4.8) Monocytes # (Auto) 1.2 x10^3/uL (0.0-1.1) Eosinophils # (Auto) 0.2 x10^3/uL (0.0-0.7) Basophils # (Auto) 0.1 x10^3/uL (0.0-0.2) Sodium Level 132 mmol/L (136-145) Potassium Level 4.2 mmol/L (3.5-5.1) Chloride Level 101 mmol/L (98-107) Carbon Dioxide Level 29 mmol/L (21-32) Anion Gap 2 (6-14) Blood Urea Nitrogen 20 mg/dL (7-20) Creatinine 0.5 mg/dL (0.6-1.0) Estimated GFR (Cockcroft-Gault) 131.1 BUN/Creatinine Ratio 40 (6-20) Glucose Level 130 mg/dL (70-99) Calcium Level 8.6 mg/dL (8.5-10.1) Total Bilirubin 0.6 mg/dL (0.2-1.0) Aspartate Amino Transf (AST/SGOT) 28 U/L (15-37) Alanine Aminotransferase (ALT/SGPT) 68 U/L (14-59) Alkaline Phosphatase 210 U/L (46-116) Total Protein 3.2 g/dL (6.4-8.2) Albumin 0.9 g/dL (3.4-5.0) Albumin/Globulin Ratio 0.4 (1.0-1.7) Test 10/22/19 11:50 Glucose (Fingerstick) 149 mg/dL (70-99) Assessment and Plan Assessmemt and Plan Problems Medical Problems: (1) Acute pancreatitis Status: Acute (2) Cholelithiasis Status: Acute Comment Review of Relevant I have reviewed the following items kolby (where applicable) has been applied. Labs Laboratory Tests Test 10/20/19 18:10 10/21/19 05:30 10/21/19 06:01 10/21/19 08:00 Glucose (Fingerstick) 176 mg/dL (70-99) 150 mg/dL (70-99) White Blood Count 29.7 x10^3/uL (4.0-11.0) Red Blood Count 2.85 x10^6/uL (3.50-5.40) Hemoglobin 8.3 g/dL (12.0-15.5) Hematocrit 25.0 % (36.0-47.0) Mean Corpuscular Volume 88 fL (79-100) Mean Corpuscular Hemoglobin 29 pg (25-35) Mean Corpuscular Hemoglobin Concent 33 g/dL (31-37) Red Cell Distribution Width 15.0 % (11.5-14.5) Platelet Count 260 x10^3/uL (140-400) Neutrophils (%) (Auto) 90 % (31-73) Lymphocytes (%) (Auto) 4 % (24-48) Monocytes (%) (Auto) 5 % (0-9) Eosinophils (%) (Auto) 1 % (0-3) Basophils (%) (Auto) 0 % (0-3) Neutrophils # (Auto) 26.6 x10^3/uL (1.8-7.7) Lymphocytes # (Auto) 1.3 x10^3/uL (1.0-4.8) Monocytes # (Auto) 1.5 x10^3/uL (0.0-1.1) Eosinophils # (Auto) 0.3 x10^3/uL (0.0-0.7) Basophils # (Auto) 0.0 x10^3/uL (0.0-0.2) Segmented Neutrophils % 87 % (35-66) Band Neutrophils % 7 % (0-9) Lymphocytes % 4 % (24-48) Monocytes % 2 % (0-10) Platelet Estimate Adequate (ADEQUATE) Polychromasia Present Anisocytosis Present Creatine Kinase 17 U/L (26-192) O2 Saturation 85 % (92-99) Arterial Blood pH 7.36 (7.35-7.45) Arterial Blood pCO2 at Patient Temp 48 mmHg (35-46) Arterial Blood pO2 at Patient Temp 54 mmHg (75-108) Arterial Blood HCO3 27 mmol/L (21-28) Arterial Blood Base Excess 1 mmol/L (-3-3) FiO2 40 Test 10/21/19 10:16 10/21/19 12:26 10/21/19 18:06 10/21/19 23:56 Sodium Level 133 mmol/L (136-145) Potassium Level 3.9 mmol/L (3.5-5.1) Chloride Level 102 mmol/L (98-107) Carbon Dioxide Level 28 mmol/L (21-32) Anion Gap 3 (6-14) Blood Urea Nitrogen 20 mg/dL (7-20) Creatinine 0.6 mg/dL (0.6-1.0) Estimated GFR (Cockcroft-Gault) 106.3 BUN/Creatinine Ratio 33 (6-20) Glucose Level 224 mg/dL (70-99) Calcium Level 8.6 mg/dL (8.5-10.1) Total Bilirubin 0.6 mg/dL (0.2-1.0) Aspartate Amino Transf (AST/SGOT) 42 U/L (15-37) Alanine Aminotransferase (ALT/SGPT) 98 U/L (14-59) Alkaline Phosphatase 199 U/L (46-116) Total Protein 3.7 g/dL (6.4-8.2) Albumin 1.0 g/dL (3.4-5.0) Albumin/Globulin Ratio 0.4 (1.0-1.7) Glucose (Fingerstick) 179 mg/dL (70-99) 143 mg/dL (70-99) 136 mg/dL (70-99) Test 10/22/19 06:12 10/22/19 06:15 10/22/19 11:50 Glucose (Fingerstick) 141 mg/dL (70-99) 149 mg/dL (70-99) White Blood Count 25.9 x10^3/uL (4.0-11.0) Red Blood Count 2.52 x10^6/uL (3.50-5.40) Hemoglobin 7.4 g/dL (12.0-15.5) Hematocrit 22.3 % (36.0-47.0) Mean Corpuscular Volume 88 fL (79-100) Mean Corpuscular Hemoglobin 30 pg (25-35) Mean Corpuscular Hemoglobin Concent 33 g/dL (31-37) Red Cell Distribution Width 15.1 % (11.5-14.5) Platelet Count 269 x10^3/uL (140-400) Neutrophils (%) (Auto) 89 % (31-73) Lymphocytes (%) (Auto) 5 % (24-48) Monocytes (%) (Auto) 5 % (0-9) Eosinophils (%) (Auto) 1 % (0-3) Basophils (%) (Auto) 0 % (0-3) Neutrophils # (Auto) 23.0 x10^3/uL (1.8-7.7) Lymphocytes # (Auto) 1.3 x10^3/uL (1.0-4.8) Monocytes # (Auto) 1.2 x10^3/uL (0.0-1.1) Eosinophils # (Auto) 0.2 x10^3/uL (0.0-0.7) Basophils # (Auto) 0.1 x10^3/uL (0.0-0.2) Sodium Level 132 mmol/L (136-145) Potassium Level 4.2 mmol/L (3.5-5.1) Chloride Level 101 mmol/L (98-107) Carbon Dioxide Level 29 mmol/L (21-32) Anion Gap 2 (6-14) Blood Urea Nitrogen 20 mg/dL (7-20) Creatinine 0.5 mg/dL (0.6-1.0) Estimated GFR (Cockcroft-Gault) 131.1 BUN/Creatinine Ratio 40 (6-20) Glucose Level 130 mg/dL (70-99) Calcium Level 8.6 mg/dL (8.5-10.1) Total Bilirubin 0.6 mg/dL (0.2-1.0) Aspartate Amino Transf (AST/SGOT) 28 U/L (15-37) Alanine Aminotransferase (ALT/SGPT) 68 U/L (14-59) Alkaline Phosphatase 210 U/L (46-116) Total Protein 3.2 g/dL (6.4-8.2) Albumin 0.9 g/dL (3.4-5.0) Albumin/Globulin Ratio 0.4 (1.0-1.7) Laboratory Tests Test 10/21/19 18:06 10/21/19 23:56 10/22/19 06:12 10/22/19 06:15 Glucose (Fingerstick) 143 mg/dL (70-99) 136 mg/dL (70-99) 141 mg/dL (70-99) White Blood Count 25.9 x10^3/uL (4.0-11.0) Red Blood Count 2.52 x10^6/uL (3.50-5.40) Hemoglobin 7.4 g/dL (12.0-15.5) Hematocrit 22.3 % (36.0-47.0) Mean Corpuscular Volume 88 fL (79-100) Mean Corpuscular Hemoglobin 30 pg (25-35) Mean Corpuscular Hemoglobin Concent 33 g/dL (31-37) Red Cell Distribution Width 15.1 % (11.5-14.5) Platelet Count 269 x10^3/uL (140-400) Neutrophils (%) (Auto) 89 % (31-73) Lymphocytes (%) (Auto) 5 % (24-48) Monocytes (%) (Auto) 5 % (0-9) Eosinophils (%) (Auto) 1 % (0-3) Basophils (%) (Auto) 0 % (0-3) Neutrophils # (Auto) 23.0 x10^3/uL (1.8-7.7) Lymphocytes # (Auto) 1.3 x10^3/uL (1.0-4.8) Monocytes # (Auto) 1.2 x10^3/uL (0.0-1.1) Eosinophils # (Auto) 0.2 x10^3/uL (0.0-0.7) Basophils # (Auto) 0.1 x10^3/uL (0.0-0.2) Sodium Level 132 mmol/L (136-145) Potassium Level 4.2 mmol/L (3.5-5.1) Chloride Level 101 mmol/L (98-107) Carbon Dioxide Level 29 mmol/L (21-32) Anion Gap 2 (6-14) Blood Urea Nitrogen 20 mg/dL (7-20) Creatinine 0.5 mg/dL (0.6-1.0) Estimated GFR (Cockcroft-Gault) 131.1 BUN/Creatinine Ratio 40 (6-20) Glucose Level 130 mg/dL (70-99) Calcium Level 8.6 mg/dL (8.5-10.1) Total Bilirubin 0.6 mg/dL (0.2-1.0) Aspartate Amino Transf (AST/SGOT) 28 U/L (15-37) Alanine Aminotransferase (ALT/SGPT) 68 U/L (14-59) Alkaline Phosphatase 210 U/L (46-116) Total Protein 3.2 g/dL (6.4-8.2) Albumin 0.9 g/dL (3.4-5.0) Albumin/Globulin Ratio 0.4 (1.0-1.7) Test 10/22/19 11:50 Glucose (Fingerstick) 149 mg/dL (70-99) Microbiology 10/18/19 Gram Stain - Final, Resulted 10/18/19 Aerobic and Anaerobic Culture - Preliminary, Resulted 10/16/19 Blood Culture - Final, Complete NO GROWTH AFTER 5 DAYS 10/03/19 Gram Stain - Final, Complete 10/03/19 Aerobic and Anaerobic Culture - Final, Complete 10/01/19 Gram Stain Evaluation - Final, Complete 10/01/19 Respiratory Culture - Final, Complete 10/01/19 Antimicrobic Susceptibility - Final, Complete 09/25/19 Urine Culture - Final, Complete 09/17/19 Gram Stain - Final, Complete 09/17/19 Aerobic Culture - Final, Complete Medications Current Medications Sodium Chloride 1,000 ml @ 1,000 mls/hr Q1H IV Last administered on 07/04/19at 03:00; Start 07/04/19 at 03:00; Stop 07/04/19 at 03:59; Status DC Ondansetron HCl (Zofran) 4 mg 1X ONCE IVP Last administered on 07/04/19at 03:27; Start 07/04/19 at 03:00; Stop 07/04/19 at 03:01; Status DC Morphine Sulfate (Morphine Sulfate) 4 mg 1X ONCE IV ; Start 07/04/19 at 03:00; Stop 07/04/19 at 03:01; Status Cancel Ketorolac Tromethamine (Toradol 30mg Vial) 30 mg 1X ONCE IV Last administered on 07/04/19at 02:54; Start 07/04/19 at 03:00; Stop 07/04/19 at 03:01; Status DC Fentanyl Citrate (Fentanyl 2ml Vial) 25 mcg 1X ONCE IVP Last administered on 07/04/19at 03:23; Start 07/04/19 at 03:30; Stop 07/04/19 at 03:31; Status DC Fentanyl Citrate (Fentanyl 2ml Vial) 100 mcg STK-MED ONCE .ROUTE ; Start 07/04/19 at 03:18; Stop 07/04/19 at 03:18; Status DC Iohexol (Omnipaque 350 Mg/ml) 90 ml 1X ONCE IV Last administered on 07/04/19at 03:25; Start 07/04/19 at 03:30; Stop 07/04/19 at 03:31; Status DC Info (CONTRAST GIVEN -- Rx MONITORING) 1 each PRN DAILY PRN MC SEE COMMENTS; Start 07/04/19 at 03:30; Stop 07/06/19 at 03:29; Status DC Hydromorphone HCl (Dilaudid) 0.5 mg 1X ONCE IV Last administered on 07/04/19at 03:55; Start 07/04/19 at 04:30; Stop 07/04/19 at 04:32; Status DC Ondansetron HCl (Zofran) 4 mg PRN Q8HRS PRN IV NAUSEA/VOMITING 1ST CHOICE; Start 07/04/19 at 05:00; Stop 07/04/19 at 09:27; Status DC Morphine Sulfate (Morphine Sulfate) 2 mg PRN Q2HR PRN IV SEVERE PAIN 7-10 Last administered on 07/05/19at 12:26; Start 07/04/19 at 05:00; Stop 07/05/19 at 14:15; Status DC Sodium Chloride 1,000 ml @ 125 mls/hr Q8H IV Last administered on 07/04/19at 20:56; Start 07/04/19 at 05:00; Stop 07/05/19 at 04:59; Status DC Hydromorphone HCl (Dilaudid) 0.5 mg PRN Q3HRS PRN IV SEVERE PAIN 7-10 Last administered on 07/05/19at 10:06; Start 07/04/19 at 05:00; Stop 07/05/19 at 12:01; Status DC Piperacillin Sod/ Tazobactam Sod 4.5 gm/Sodium Chloride 100 ml @ 200 mls/hr 1X ONCE IV Last administered on 07/04/19at 05:44; Start 07/04/19 at 06:00; Stop 07/04/19 at 06:29; Status DC Ondansetron HCl (Zofran) 4 mg PRN Q4HRS PRN IV NAUSEA/VOMITING 1ST CHOICE Last administered on 10/15/19at 13:37; Start 07/04/19 at 09:30 Insulin Human Lispro (HumaLOG) 0-9 UNITS Q6HRS SQ Last administered on 10/21/19at 12:30; Start 07/04/19 at 09:30 Dextrose (Dextrose 50%-Water Syringe) 12.5 gm PRN Q15MIN PRN IV SEE COMMENTS; Start 07/04/19 at 09:30 Pantoprazole Sodium (PROTONIX VIAL for IV PUSH) 40 mg DAILYAC IVP Last administered on 10/22/19at 07:50; Start 07/04/19 at 11:30 Prochlorperazine Edisylate (Compazine) 10 mg PRN Q6HRS PRN IV NAUSEA/VOMITING, 2nd CHOICE Last administered on 10/15/19at 10:53; Start 07/04/19 at 17:45 Atenolol (Tenormin) 100 mg DAILY PO ; Start 07/05/19 at 09:00; Stop 07/04/19 at 20:08; Status DC Metoprolol Tartrate (Lopressor Vial) 2.5 mg Q6HRS IVP Last administered on 07/05/19at 05:51; Start 07/04/19 at 20:15; Stop 07/05/19 at 10:02; Status DC Metoprolol Tartrate (Lopressor Vial) 5 mg Q6HRS IVP Last administered on 07/14/19at 00:12; Start 07/05/19 at 10:15; Stop 07/16/19 at 08:48; Status DC Hydromorphone HCl (Dilaudid) 1 mg PRN Q3HRS PRN IV SEVERE PAIN 7-10 Last administered on 07/11/19at 05:13; Start 07/05/19 at 12:00; Stop 07/19/19 at 00:25; Status DC Lidocaine HCl (Buffered Lidocaine 1%) 3 ml STK-MED ONCE .ROUTE ; Start 07/05/19 at 12:55; Stop 07/05/19 at 12:56; Status DC Albumin Human 500 ml @ 125 mls/hr 1X ONCE IV Last administered on 07/05/19at 14:33; Start 07/05/19 at 14:30; Stop 07/05/19 at 18:32; Status DC Norepinephrine Bitartrate 8 mg/ Dextrose 258 ml @ 17.299 mls/ hr CONT PRN IV PER PROTOCOL Last administered on 08/02/19at 12:48; Start 07/05/19 at 15:30; Stop 08/05/19 at 09:19; Status DC Sodium Chloride 1,000 ml @ 125 mls/hr Q8H IV Last administered on 07/05/19at 21:04; Start 07/05/19 at 16:00; Stop 07/06/19 at 02:42; Status DC Albumin Human 500 ml @ 125 mls/hr PRN BID PRN IV After every 2L NSS & BP < 90mm Last administered on 10/18/19at 16:06; Start 07/05/19 at 16:00; Stop 10/21/19 at 09:30; Status DC Iohexol (Omnipaque 300 Mg/ml) 60 ml 1X ONCE IV Last administered on 07/05/19at 17:20; Start 07/05/19 at 17:00; Stop 07/05/19 at 17:01; Status DC Info (CONTRAST GIVEN -- Rx MONITORING) 1 each PRN DAILY PRN MC SEE COMMENTS; Start 07/05/19 at 17:00; Stop 07/07/19 at 16:59; Status DC Meropenem 1 gm/ Sodium Chloride 100 ml @ 200 mls/hr Q8HRS IV Last administered on 07/06/19at 05:45; Start 07/05/19 at 20:00; Stop 07/06/19 at 08:48; Status DC Furosemide (Lasix) 40 mg 1X ONCE IVP Last administered on 07/05/19at 22:12; Start 07/05/19 at 22:30; Stop 07/05/19 at 22:31; Status DC Calcium Chloride 1000 mg/Sodium Chloride 110 ml @ 220 mls/hr 1X ONCE IV Last administered on 07/05/19at 22:11; Start 07/05/19 at 22:30; Stop 07/05/19 at 22:59; Status DC Albuterol Sulfate (Ventolin Neb Soln) 2.5 mg 1X ONCE NEB Last administered on 07/06/19at 00:56; Start 07/05/19 at 22:30; Stop 07/05/19 at 22:31; Status DC Insulin Human Regular (HumuLIN R VIAL) 5 unit 1X ONCE IV Last administered on 07/05/19at 22:14; Start 07/05/19 at 22:30; Stop 07/05/19 at 22:31; Status DC Magnesium Sulfate 50 ml @ 25 mls/hr 1X ONCE IV Last administered on 07/06/19at 02:57; Start 07/06/19 at 03:00; Stop 07/06/19 at 04:59; Status DC Calcium Gluconate 1000 mg/Sodium Chloride 110 ml @ 220 mls/hr 1X ONCE IV Last administered on 07/06/19at 02:46; Start 07/06/19 at 03:00; Stop 07/06/19 at 03:29; Status DC Sodium Chloride 1,000 ml @ 200 mls/hr Q5H IV Last administered on 07/06/19at 02:46; Start 07/06/19 at 03:00; Stop 07/06/19 at 10:21; Status DC Calcium Gluconate 1000 mg/Sodium Chloride 110 ml @ 220 mls/hr 1X ONCE IV Last administered on 07/06/19at 03:21; Start 07/06/19 at 03:30; Stop 07/06/19 at 03:59; Status DC Sodium Bicarbonate 50 meq/Sodium Chloride 1,050 ml @ 75 mls/hr Q14H IV Last administered on 07/10/19at 21:10; Start 07/06/19 at 07:30; Stop 07/11/19 at 10:28; Status DC Calcium Gluconate 2000 mg/Sodium Chloride 120 ml @ 220 mls/hr 1X ONCE IV Last administered on 07/06/19at 09:05; Start 07/06/19 at 07:30; Stop 07/06/19 at 08:02; Status DC Lidocaine HCl (Xylocaine-Mpf 1% 2ml Vial) 2 ml STK-MED ONCE .ROUTE ; Start 07/06/19 at 08:47; Stop 07/06/19 at 08:47; Status DC Meropenem 500 mg/ Sodium Chloride 50 ml @ 100 mls/hr Q12HR IV Last administered on 07/11/19at 21:01; Start 07/06/19 at 18:00; Stop 07/12/19 at 07:58; Status DC Lidocaine HCl (Buffered Lidocaine 1%) 3 ml STK-MED ONCE .ROUTE ; Start 07/06/19 at 09:46; Stop 07/06/19 at 09:46; Status DC Lidocaine HCl (Buffered Lidocaine 1%) 6 ml 1X ONCE INJ Last administered on 07/06/19at 10:26; Start 07/06/19 at 10:15; Stop 07/06/19 at 10:16; Status DC Info (Tpn Per Pharmacy) 1 each PRN DAILY PRN MC SEE COMMENTS Last administered on 10/22/19at 10:33; Start 07/06/19 at 12:00 Sodium Chloride 1,000 ml @ 1,000 mls/hr Q1H PRN IV hypotension; Start 07/06/19 at 12:07; Stop 07/06/19 at 18:06; Status DC Diphenhydramine HCl (Benadryl) 25 mg 1X PRN PRN IV ITCHING; Start 07/06/19 at 12:15; Stop 07/07/19 at 12:14; Status DC Diphenhydramine HCl (Benadryl) 25 mg 1X PRN PRN IV ITCHING; Start 07/06/19 at 12:15; Stop 07/07/19 at 12:14; Status DC Sodium Chloride 1,000 ml @ 400 mls/hr Q2H30M PRN IV PATENCY; Start 07/06/19 at 12:07; Stop 07/07/19 at 00:06; Status DC Info (PHARMACY MONITORING -- do not chart) 1 each PRN DAILY PRN MC SEE COMMENTS; Start 07/06/19 at 12:15; Stop 07/08/19 at 08:13; Status DC Sodium Chloride 90 meq/Calcium Gluconate 10 meq/ Multivitamins 10 ml/Chromium/ Copper/Manganese/ Seleni/Zn 1 ml/ Total Parenteral Nutrition/Amino Acids/Dextrose/ Fat Emulsion Intravenous 55.005 ml @ 2.292 mls/hr TPN CONT IV ; Start 07/06/19 at 22:00; Stop 07/06/19 at 12:33; Status DC Info (Tpn Per Pharmacy) 1 each PRN DAILY PRN MC SEE COMMENTS; Start 07/06/19 at 12:30; Status UNV Sodium Chloride 90 meq/Calcium Gluconate 10 meq/ Multivitamins 10 ml/Chromium/ Copper/Manganese/ Seleni/Zn 0.5 ml/ Total Parenteral Nutrition/Amino Acids/Dextrose/ Fat Emulsion Intravenous 1,512 ml @ 63 mls/hr TPN CONT IV Last administered on 07/06/19at 22:06; Start 07/06/19 at 22:00; Stop 07/07/19 at 21:59; Status DC Calcium Carbonate/ Glycine (Tums) 500 mg PRN AFTMEALHC PRN PO INDIGESTION; Start 07/06/19 at 17:45; Stop 08/31/19 at 10:25; Status DC Calcium Gluconate (Calcium Gluconate) 2,000 mg 1X ONCE IVP Last administered on 07/07/19at 02:19; Start 07/07/19 at 02:15; Stop 07/07/19 at 02:16; Status DC Calcium Chloride 3000 mg/Sodium Chloride 1,030 ml @ 50 mls/hr [id number] IV Last administered on 07/09/19at 02:17; Start 07/07/19 at 08:00; Stop 07/09/19 at 15:23; Status DC Lorazepam (Ativan Inj) 1 mg PRN Q4HRS PRN IVP ANXIETY / AGITATION, 2nd choic Last administered on 08/05/19at 03:51; Start 07/07/19 at 09:00; Stop 08/05/19 at 09:19; Status DC Sodium Chloride 1,000 ml @ 1,000 mls/hr Q1H PRN IV hypotension; Start 07/07/19 at 08:56; Stop 07/07/19 at 14:55; Status DC Albumin Human 200 ml @ 200 mls/hr 1X PRN PRN IV Hypotension; Start 07/07/19 at 09:00; Stop 07/07/19 at 14:59; Status DC Diphenhydramine HCl (Benadryl) 25 mg 1X PRN PRN IV ITCHING; Start 07/07/19 at 09:00; Stop 07/08/19 at 08:59; Status DC Diphenhydramine HCl (Benadryl) 25 mg 1X PRN PRN IV ITCHING; Start 07/07/19 at 09:00; Stop 07/08/19 at 08:59; Status DC Sodium Chloride 1,000 ml @ 400 mls/hr Q2H30M PRN IV PATENCY; Start 07/07/19 at 08:56; Stop 07/07/19 at 20:55; Status DC Info (PHARMACY MONITORING -- do not chart) 1 each PRN DAILY PRN MC SEE COMMENTS; Start 07/07/19 at 09:00; Status UNV Info (PHARMACY MONITORING -- do not chart) 1 each PRN DAILY PRN MC SEE COMMENTS; Start 07/07/19 at 09:00; Stop 07/08/19 at 08:13; Status DC Digoxin (Lanoxin) 500 mcg 1X ONCE IV Last administered on 07/07/19at 10:04; Start 07/07/19 at 10:00; Stop 07/07/19 at 10:01; Status DC Digoxin (Lanoxin) 125 mcg 1X ONCE IV Last administered on 07/07/19at 17:10; Start 07/07/19 at 18:00; Stop 07/07/19 at 18:01; Status DC Magnesium Sulfate 100 ml @ 25 mls/hr 1X ONCE IV Last administered on 07/07/19at 12:48; Start 07/07/19 at 13:00; Stop 07/07/19 at 16:59; Status DC Sodium Chloride 90 meq/Magnesium Sulfate 10 meq/ Calcium Gluconate 20 meq/ Multivitamins 10 ml/Chromium/ Copper/Manganese/ Seleni/Zn 0.5 ml/ Total Parenteral Nutrition/Amino Acids/Dextrose/ Fat Emulsion Intravenous 1,512 ml @ 63 mls/hr TPN CONT IV Last administered on 07/07/19at 22:25; Start 07/07/19 at 22:00; Stop 07/08/19 at 21:59; Status DC Sodium Chloride 1,000 ml @ 1,000 mls/hr Q1H PRN IV hypotension; Start 07/08/19 at 08:05; Stop 07/08/19 at 14:04; Status DC Albumin Human 200 ml @ 200 mls/hr 1X ONCE IV Last administered on 07/08/19at 08:57; Start 07/08/19 at 08:15; Stop 07/08/19 at 09:14; Status DC Diphenhydramine HCl (Benadryl) 25 mg 1X PRN PRN IV ITCHING; Start 07/08/19 at 08:15; Stop 07/09/19 at 08:14; Status DC Diphenhydramine HCl (Benadryl) 25 mg 1X PRN PRN IV ITCHING; Start 07/08/19 at 08:15; Stop 07/09/19 at 08:14; Status DC Sodium Chloride 1,000 ml @ 400 mls/hr Q2H30M PRN IV PATENCY; Start 07/08/19 at 08:05; Stop 07/08/19 at 20:04; Status DC Info (PHARMACY MONITORING -- do not chart) 1 each PRN DAILY PRN MC SEE COMMENTS; Start 07/08/19 at 08:15; Stop 07/12/19 at 07:57; Status DC Sodium Chloride 90 meq/Potassium Chloride 15 meq/ Potassium Phosphate 10 mmol/ Magnesium Sulfate 10 meq/Calcium Gluconate 20 meq/ Multivitamins 10 ml/Chromium/ Copper/Manganese/ Seleni/Zn 0.5 ml/ Total Parenteral Nutrition/Amino Acids/Dextrose/ Fat Emulsion Intravenous 1,512 ml @ 63 mls/hr TPN CONT IV Last administered on 07/08/19at 21:01; Start 07/08/19 at 22:00; Stop 07/09/19 at 21:59; Status DC Potassium Chloride/Water 100 ml @ 100 mls/hr 1X ONCE IV Last administered on 07/08/19at 14:09; Start 07/08/19 at 14:00; Stop 07/08/19 at 14:59; Status DC Benzocaine (Hurricaine One) 1 spray 1X ONCE MM Last administered on 07/08/19at 16:38; Start 07/08/19 at 14:30; Stop 07/08/19 at 14:31; Status DC Lidocaine HCl (Glydo (Lidocaine) Jelly) 1 ramu 1X ONCE MM Last administered on 07/08/19at 16:38; Start 07/08/19 at 14:30; Stop 07/08/19 at 14:31; Status DC Linezolid/Dextrose 300 ml @ 300 mls/hr Q12HR IV Last administered on 07/14/19at 21:04; Start 07/08/19 at 20:00; Stop 07/15/19 at 07:50; Status DC Acetaminophen (Tylenol) 650 mg PRN Q6HRS PRN PO MILD PAIN / TEMP; Start 07/09/19 at 03:30; Stop 07/09/19 at 03:36; Status DC Acetaminophen (Tylenol) 650 mg PRN Q6HRS PRN PEG MILD PAIN / TEMP Last administered on 08/04/19at 19:56; Start 07/09/19 at 03:36; Stop 08/31/19 at 10:25; Status DC Sodium Chloride 1,000 ml @ 1,000 mls/hr Q1H PRN IV hypotension; Start 07/09/19 at 07:50; Stop 07/09/19 at 13:49; Status DC Albumin Human 200 ml @ 200 mls/hr 1X PRN PRN IV Hypotension; Start 07/09/19 at 08:00; Stop 07/09/19 at 13:59; Status DC Sodium Chloride (Normal Saline Flush) 10 ml 1X PRN PRN IV AP catheter pack; Start 07/09/19 at 08:00; Stop 07/10/19 at 07:59; Status DC Sodium Chloride (Normal Saline Flush) 10 ml 1X PRN PRN IV CREATIVE RECRUITER catheter pack; Start 07/09/19 at 08:00; Stop 07/10/19 at 07:59; Status DC Sodium Chloride 1,000 ml @ 400 mls/hr Q2H30M PRN IV PATENCY; Start 07/09/19 at 07:50; Stop 07/09/19 at 19:49; Status DC Info (PHARMACY MONITORING -- do not chart) 1 each PRN DAILY PRN MC SEE COMMENTS; Start 07/09/19 at 08:00; Status UNV Info (PHARMACY MONITORING -- do not chart) 1 each PRN DAILY PRN MC SEE COMMENTS; Start 07/09/19 at 08:00; Stop 07/11/19 at 08:25; Status DC Sodium Chloride 90 meq/Potassium Chloride 15 meq/ Potassium Phosphate 10 mmol/ Magnesium Sulfate 10 meq/Calcium Gluconate 20 meq/ Multivitamins 10 ml/Chromium/ Copper/Manganese/ Seleni/Zn 0.5 ml/ Total Parenteral Nutrition/Amino Acids/Dextrose/ Fat Emulsion Intravenous 1,512 ml @ 63 mls/hr TPN CONT IV Last administered on 07/09/19at 20:57; Start 07/09/19 at 22:00; Stop 07/10/19 at 21:59; Status DC Sodium Chloride 90 meq/Potassium Chloride 15 meq/ Potassium Phosphate 15 mmol/ Magnesium Sulfate 10 meq/Calcium Gluconate 20 meq/ Multivitamins 10 ml/Chromium/ Copper/Manganese/ Seleni/Zn 0.5 ml/ Total Parenteral Nutrition/Amino Acids/Dextrose/ Fat Emulsion Intravenous 1,512 ml @ 63 mls/hr TPN CONT IV ; Start 07/10/19 at 22:00; Stop 07/10/19 at 14:16; Status DC Sodium Chloride 90 meq/Potassium Chloride 15 meq/ Potassium Phosphate 15 mmol/ Magnesium Sulfate 10 meq/Calcium Gluconate 20 meq/ Multivitamins 10 ml/Chromium/ Copper/Manganese/ Seleni/Zn 0.5 ml/ Total Parenteral Nutrition/Amino Acids/Dextrose/ Fat Emulsion Intravenous 1,200 ml @ 50 mls/hr TPN CONT IV ; Start 07/10/19 at 22:00; Stop 07/10/19 at 14:17; Status DC Sodium Chloride 90 meq/Potassium Chloride 15 meq/ Potassium Phosphate 10 mmol/ Magnesium Sulfate 10 meq/Calcium Gluconate 20 meq/ Multivitamins 10 ml/Chromium/ Copper/Manganese/ Seleni/Zn 0.5 ml/ Total Parenteral Nutrition/Amino Acids/Dextrose/ Fat Emulsion Intravenous 1,200 ml @ 50 mls/hr TPN CONT IV Last administered on 07/10/19at 23:29; Start 07/10/19 at 22:00; Stop 07/11/19 at 21:59; Status DC Sodium Chloride 1,000 ml @ 1,000 mls/hr Q1H PRN IV hypotension; Start 07/11/19 at 07:28; Stop 07/11/19 at 13:27; Status DC Albumin Human 200 ml @ 200 mls/hr 1X ONCE IV Last administered on 07/11/19at 08:51; Start 07/11/19 at 07:30; Stop 07/11/19 at 08:29; Status DC Diphenhydramine HCl (Benadryl) 25 mg 1X PRN PRN IV ITCHING; Start 07/11/19 at 07:30; Stop 07/12/19 at 07:29; Status DC Diphenhydramine HCl (Benadryl) 25 mg 1X PRN PRN IV ITCHING; Start 07/11/19 at 07:30; Stop 07/12/19 at 07:29; Status DC Sodium Chloride 1,000 ml @ 400 mls/hr Q2H30M PRN IV PATENCY; Start 07/11/19 at 07:28; Stop 07/11/19 at 19:27; Status DC Info (PHARMACY MONITORING -- do not chart) 1 each PRN DAILY PRN MC SEE COMMENTS; Start 07/11/19 at 07:30; Stop 07/22/19 at 13:01; Status DC Metronidazole 100 ml @ 100 mls/hr Q6HRS IV Last administered on 07/27/19at 06:26; Start 07/11/19 at 08:30; Stop 07/27/19 at 09:58; Status DC Micafungin Sodium 100 mg/Dextrose 100 ml @ 100 mls/hr Q24H IV Last administered on 08/18/19at 08:18; Start 07/11/19 at 09:00; Stop 08/18/19 at 20:58; Status DC Propofol 0 ml @ As Directed STK-MED ONCE IV ; Start 07/11/19 at 07:53; Stop 07/11/19 at 07:53; Status DC Etomidate (Amidate) 20 mg STK-MED ONCE IV ; Start 07/11/19 at 07:53; Stop 07/11/19 at 07:54; Status DC Midazolam HCl (Versed) 5 mg STK-MED ONCE .ROUTE ; Start 07/11/19 at 07:57; Stop 07/11/19 at 07:57; Status DC Fentanyl Citrate 30 ml @ 0 mls/hr CONT PRN IV SEE PROTOCOL Last administered on 08/05/19at 06:12; Start 07/11/19 at 08:15; Stop 08/05/19 at 09:19; Status DC Artificial Tears (Artificial Tears) 1 drop PRN Q1HR PRN OU DRY EYE, 1st choice; Start 07/11/19 at 08:15; Stop 08/17/19 at 05:31; Status DC Midazolam HCl 50 mg/Sodium Chloride 50 ml @ 0 mls/hr CONT PRN IV SEE PROTOCOL Last administered on 07/14/19at 22:39; Start 07/11/19 at 08:15; Stop 07/16/19 at 15:59; Status DC Etomidate (Amidate) 8 mg 1X ONCE IV Last administered on 07/11/19at 08:33; Start 07/11/19 at 08:30; Stop 07/11/19 at 08:31; Status DC Succinylcholine Chloride (Anectine) 120 mg 1X ONCE IV Last administered on 07/11/19at 08:34; Start 07/11/19 at 08:30; Stop 07/11/19 at 08:31; Status DC Midazolam HCl (Versed) 5 mg 1X ONCE IV ; Start 07/11/19 at 08:30; Stop 07/11/19 at 08:31; Status DC Potassium Chloride 15 meq/ Bicarbonate Dialysis Soln w/ out KCl 5,007.5 ml @ 1,000 mls/ hr Q5H1M IV Last administered on 07/12/19at 11:11; Start 07/11/19 at 12:00; Stop 07/12/19 at 11:15; Status DC Potassium Chloride 15 meq/ Bicarbonate Dialysis Soln w/ out KCl 5,007.5 ml @ 1,000 mls/ hr Q5H1M IV Last administered on 07/12/19at 11:12; Start 07/11/19 at 12:00; Stop 07/12/19 at 11:17; Status DC Potassium Chloride 15 meq/ Bicarbonate Dialysis Soln w/ out KCl 5,007.5 ml @ 1,000 mls/ hr Q5H1M IV Last administered on 07/12/19at 11:11; Start 07/11/19 at 12:00; Stop 07/12/19 at 11:19; Status DC Sodium Chloride 90 meq/Potassium Chloride 15 meq/ Potassium Phosphate 10 mmol/ Magnesium Sulfate 10 meq/Calcium Gluconate 20 meq/ Multivitamins 10 ml/Chromium/ Copper/Manganese/ Seleni/Zn 0.5 ml/ Total Parenteral Nutrition/Amino Acids/Dextrose/ Fat Emulsion Intravenous 1,400 ml @ 58.333 mls/ hr TPN CONT IV Last administered on 07/11/19at 21:42; Start 07/11/19 at 22:00; Stop 07/12/19 at 21:59; Status DC Heparin Sodium (Porcine) (Heparin Sodium) 5,000 unit Q8HRS SQ Last administered on 07/16/19at 05:55; Start 07/11/19 at 15:00; Stop 07/16/19 at 13:28; Status DC Meropenem 500 mg/ Sodium Chloride 50 ml @ 100 mls/hr Q6HRS IV Last administered on 07/13/19at 06:00; Start 07/12/19 at 09:00; Stop 07/13/19 at 07:29; Status DC Potassium Phosphate 20 mmol/ Sodium Chloride 106.6667 ml @ 51.667 m... 1X ONCE IV Last administered on 07/12/19at 11:22; Start 07/12/19 at 10:15; Stop 07/12/19 at 12:18; Status DC Acetaminophen (Tylenol Supp) 650 mg PRN Q6HRS PRN CA MILD PAIN / TEMP > 100.3'F Last administered on 10/17/19at 18:16; Start 07/12/19 at 10:30 Potassium Chloride/Water 100 ml @ 100 mls/hr Q1H IV Last administered on 07/12/19at 12:12; Start 07/12/19 at 11:00; Stop 07/12/19 at 12:59; Status DC Potassium Chloride 20 meq/ Bicarbonate Dialysis Soln w/ out KCl 5,010 ml @ 1,000 mls/hr Q5H1M IV Last administered on 07/13/19at 08:48; Start 07/12/19 at 12:00; Stop 07/13/19 at 13:03; Status DC Potassium Chloride 20 meq/ Bicarbonate Dialysis Soln w/ out KCl 5,010 ml @ 1,000 mls/hr Q5H1M IV Last administered on 07/17/19at 14:52; Start 07/12/19 at 11:30; Stop 07/17/19 at 19:59; Status DC Potassium Chloride 20 meq/ Bicarbonate Dialysis Soln w/ out KCl 5,010 ml @ 1,000 mls/hr Q5H1M IV Last administered on 07/17/19at 14:53; Start 07/12/19 at 11:30; Stop 07/17/19 at 19:59; Status DC Sodium Chloride 90 meq/Potassium Chloride 15 meq/ Potassium Phosphate 15 mmol/ Magnesium Sulfate 10 meq/Calcium Gluconate 15 meq/ Multivitamins 10 ml/Chromium/ Copper/Manganese/ Seleni/Zn 0.5 ml/ Total Parenteral Nutrition/Amino Acids/Dextrose/ Fat Emulsion Intravenous 1,400 ml @ 58.333 mls/ hr TPN CONT IV Last administered on 07/12/19at 22:17; Start 07/12/19 at 22:00; Stop 07/13/19 at 21:59; Status DC Cefepime HCl (Maxipime) 2 gm Q12HR IVP Last administered on 07/26/19at 20:56; Start 07/13/19 at 09:00; Stop 07/27/19 at 09:58; Status DC Daptomycin 500 mg/ Sodium Chloride 50 ml @ 100 mls/hr Q48H IV Last administered on 07/29/19at 09:57; Start 07/13/19 at 08:30; Stop 07/29/19 at 10:07; Status DC Lidocaine HCl (Buffered Lidocaine 1%) 3 ml 1X ONCE INJ Last administered on 07/13/19at 10:27; Start 07/13/19 at 10:30; Stop 07/13/19 at 10:31; Status DC Potassium Phosphate 20 mmol/ Sodium Chloride 106.6667 ml @ 51.667 m... 1X ONCE IV Last administered on 07/13/19at 12:51; Start 07/13/19 at 13:00; Stop 07/13/19 at 15:03; Status DC Sodium Chloride 90 meq/Potassium Chloride 15 meq/ Potassium Phosphate 18 mmol/ Magnesium Sulfate 8 meq/Calcium Gluconate 15 meq/ Multivitamins 10 ml/Chromium/ Copper/Manganese/ Seleni/Zn 0.5 ml/ Total Parenteral Nutrition/Amino Acids/Dextrose/ Fat Emulsion Intravenous 1,400 ml @ 58.333 mls/ hr TPN CONT IV Last administered on 07/13/19at 22:16; Start 07/13/19 at 22:00; Stop 07/14/19 at 21:59; Status DC Potassium Chloride 20 meq/ Bicarbonate Dialysis Soln w/ out KCl 5,010 ml @ 1,000 mls/hr Q5H1M IV Last administered on 07/17/19at 14:54; Start 07/13/19 at 16:00; Stop 07/17/19 at 19:59; Status DC Multi-Ingred Cream/Lotion/Oil/ Oint (Artificial Tears Eye Ointment) 1 ramu PRN Q1HR PRN OU DRY EYE, 2nd choice Last administered on 08/01/19at 08:19; Start 07/13/19 at 17:30; Stop 09/21/19 at 14:39; Status DC Sodium Chloride 90 meq/Potassium Chloride 15 meq/ Potassium Phosphate 18 mmol/ Magnesium Sulfate 8 meq/Calcium Gluconate 15 meq/ Multivitamins 10 ml/Chromium/ Copper/Manganese/ Seleni/Zn 0.5 ml/ Total Parenteral Nutrition/Amino Acids/Dextrose/ Fat Emulsion Intravenous 1,400 ml @ 58.333 mls/ hr TPN CONT IV Last administered on 07/14/19at 22:00; Start 07/14/19 at 22:00; Stop 07/15/19 at 21:59; Status DC Albumin Human 500 ml @ 125 mls/hr 1X ONCE IV ; Start 07/14/19 at 14:15; Stop 07/14/19 at 18:14; Status DC Sodium Chloride 90 meq/Potassium Chloride 15 meq/ Potassium Phosphate 18 mmol/ Magnesium Sulfate 8 meq/Calcium Gluconate 15 meq/ Multivitamins 10 ml/Chromium/ Copper/Manganese/ Seleni/Zn 0.5 ml/ Insulin Human Regular 10 unit/ Total Parenteral Nutrition/Amino Acids/Dextrose/ Fat Emulsion Intravenous 1,400 ml @ 58.333 mls/ hr TPN CONT IV Last administered on 07/15/19at 21:43; Start 07/15/19 at 22:00; Stop 07/16/19 at 21:59; Status DC Lidocaine HCl (Buffered Lidocaine 1%) 3 ml STK-MED ONCE .ROUTE ; Start 07/13/19 at 10:00; Stop 07/15/19 at 13:57; Status DC Midazolam HCl 100 mg/Sodium Chloride 100 ml @ 7 mls/hr CONT PRN IV SEE PROTOCOL Last administered on 07/27/19at 15:35; Start 07/16/19 at 16:00; Stop 09/21/19 at 14:38; Status DC Sodium Chloride 90 meq/Potassium Chloride 15 meq/ Potassium Phosphate 18 mmol/ Magnesium Sulfate 8 meq/Calcium Gluconate 15 meq/ Multivitamins 10 ml/Chromium/ Copper/Manganese/ Seleni/Zn 0.5 ml/ Insulin Human Regular 15 unit/ Total Parenteral Nutrition/Amino Acids/Dextrose/ Fat Emulsion Intravenous 1,400 ml @ 58.333 mls/ hr TPN CONT IV Last administered on 07/16/19at 20:34; Start 07/16/19 at 22:00; Stop 07/17/19 at 21:59; Status DC Info (Icu Electrolyte Protocol) 1 ea CONT PRN PRN MC PER PROTOCOL; Start 07/17/19 at 13:15 Sodium Chloride 90 meq/Potassium Chloride 15 meq/ Potassium Phosphate 18 mmol/ Magnesium Sulfate 8 meq/Calcium Gluconate 15 meq/ Multivitamins 10 ml/Chromium/ Copper/Manganese/ Seleni/Zn 0.5 ml/ Insulin Human Regular 15 unit/ Total Parenteral Nutrition/Amino Acids/Dextrose/ Fat Emulsion Intravenous 1,400 ml @ 58.333 mls/ hr TPN CONT IV Last administered on 07/17/19at 22:05; Start 07/17/19 at 22:00; Stop 07/18/19 at 21:59; Status DC Potassium Chloride 15 meq/ Bicarbonate Dialysis Soln w/ out KCl 5,007.5 ml @ 1,000 mls/ hr Q5H1M IV Last administered on 07/20/19at 18:14; Start 07/17/19 at 20:00; Stop 07/21/19 at 13:08; Status DC Potassium Chloride 15 meq/ Bicarbonate Dialysis Soln w/ out KCl 5,007.5 ml @ 1,000 mls/ hr Q5H1M IV Last administered on 07/20/19at 18:14; Start 07/17/19 at 20:00; Stop 07/21/19 at 13:08; Status DC Potassium Chloride 15 meq/ Bicarbonate Dialysis Soln w/ out KCl 5,007.5 ml @ 1, 000 mls/ hr Q5H1M IV Last administered on 07/20/19at 18:14; Start 07/17/19 at 20:00; Stop 07/21/19 at 13:08; Status DC Iohexol (Omnipaque 240 Mg/ml) 30 ml 1X ONCE PO Last administered on 07/18/19at 11:30; Start 07/18/19 at 11:30; Stop 07/18/19 at 11:33; Status DC Info (CONTRAST GIVEN -- Rx MONITORING) 1 each PRN DAILY PRN MC SEE COMMENTS; Start 07/18/19 at 11:45; Stop 07/20/19 at 11:44; Status DC Sodium Chloride 90 meq/Potassium Chloride 15 meq/ Potassium Phosphate 18 mmol/ Magnesium Sulfate 8 meq/Calcium Gluconate 15 meq/ Multivitamins 10 ml/Chromium/ Copper/Manganese/ Seleni/Zn 0.5 ml/ Insulin Human Regular 15 unit/ Total Parent eral Nutrition/Amino Acids/Dextrose/ Fat Emulsion Intravenous 1,400 ml @ 58.333 mls/ hr TPN CONT IV Last administered on 07/18/19at 21:47; Start 07/18/19 at 22:00; Stop 07/19/19 at 21:59; Status DC Sodium Chloride 90 meq/Potassium Chloride 15 meq/ Potassium Phosphate 18 mmol/ Magnesium Sulfate 8 meq/Calcium Gluconate 15 meq/ Multivitamins 10 ml/Chromium/ Copper/Manganese/ Seleni/Zn 0.5 ml/ Insulin Human Regular 20 unit/ Total Parenteral Nutrition/Amino Acids/Dextrose/ Fat Emulsion Intravenous 1,400 ml @ 58.333 mls/ hr TPN CONT IV Last administered on 07/19/19at 21:36; Start 07/19/19 at 22:00; Stop 07/20/19 at 21:59; Status DC Alteplase, Recombinant (Cathflo For Central Catheter Clearance) 1 mg 1X ONCE INT CAT Last administered on 07/19/19at 20:03; Start 07/19/19 at 19:30; Stop 07/19/19 at 19:46; Status DC Alteplase, Recombinant (Cathflo For Central Catheter Clearance) 1 mg 1X ONCE INT CAT Last administered on 07/19/19at 22:05; Start 07/19/19 at 22:00; Stop 07/19/19 at 22:01; Status DC Sodium Chloride 90 meq/Potassium Chloride 15 meq/ Potassium Phosphate 18 mmol/ Magnesium Sulfate 8 meq/Calcium Gluconate 15 meq/ Multivitamins 10 ml/Chromium/ Copper/Manganese/ Seleni/Zn 0.5 ml/ Insulin Human Regular 20 unit/ Total Parenteral Nutrition/Amino Acids/Dextrose/ Fat Emulsion Intravenous 1,400 ml @ 58.333 mls/ hr TPN CONT IV Last administered on 07/20/19at 21:30; Start 07/20/19 at 22:00; Stop 07/21/19 at 21:59; Status DC Dexmedetomidine HCl 400 mcg/ Sodium Chloride 100 ml @ 0 mls/hr CONT PRN IV ANXIETY / AGITATION Last administered on 09/17/19at 12:57; Start 07/21/19 at 08:15; Stop 09/17/19 at 18:31; Status DC Sodium Chloride 500 ml @ 500 mls/hr 1X PRN PRN IV ELEVATED BP, SEE COMMENTS; Start 07/21/19 at 08:15 Atropine Sulfate (ATROPINE 0.5mg SYRINGE) 0.5 mg PRN Q5MIN PRN IV SEE COMMENTS; Start 07/21/19 at 08:15 Furosemide (Lasix) 20 mg 1X ONCE IVP Last administered on 07/21/19at 08:19; Start 07/21/19 at 08:15; Stop 07/21/19 at 08:16; Status DC Lidocaine HCl (Buffered Lidocaine 1%) 3 ml STK-MED ONCE .ROUTE ; Start 07/21/19 at 08:39; Stop 07/21/19 at 08:39; Status DC Lidocaine HCl (Buffered Lidocaine 1%) 6 ml 1X ONCE INJ Last administered on 07/21/19at 09:05; Start 07/21/19 at 09:00; Stop 07/21/19 at 09:06; Status DC Sodium Chloride 90 meq/Potassium Chloride 15 meq/ Potassium Phosphate 18 mmol/ Magnesium Sulfate 8 meq/Calcium Gluconate 15 meq/ Multivitamins 10 ml/Chromium/ Copper/Manganese/ Seleni/Zn 0.5 ml/ Insulin Human Regular 20 unit/ Total Parenteral Nutrition/Amino Acids/Dextrose/ Fat Emulsion Intravenous 1,400 ml @ 58.333 mls/ hr TPN CONT IV Last administered on 07/21/19at 22:45; Start 07/21/19 at 22:00; Stop 07/22/19 at 21:59; Status DC Sodium Chloride 1,000 ml @ 1,000 mls/hr Q1H PRN IV hypotension; Start 07/22/19 at 07:30; Stop 07/22/19 at 13:29; Status DC Albumin Human 200 ml @ 200 mls/hr 1X PRN PRN IV Hypotension Last administered on 07/22/19at 09:36; Start 07/22/19 at 07:30; Stop 07/22/19 at 13:29; Status DC Sodium Chloride (Normal Saline Flush) 10 ml 1X PRN PRN IV AP catheter pack; Start 07/22/19 at 07:30; Stop 07/22/19 at 21:29; Status DC Sodium Chloride (Normal Saline Flush) 10 ml 1X PRN PRN IV CREATIVE RECRUITER catheter pack; Start 07/22/19 at 07:30; Stop 07/23/19 at 07:29; Status DC Sodium Chloride 1,000 ml @ 400 mls/hr Q2H30M PRN IV PATENCY; Start 07/22/19 at 07:30; Stop 07/22/19 at 19:29; Status DC Info (PHARMACY MONITORING -- do not chart) 1 each PRN DAILY PRN MC SEE COMMENTS; Start 07/22/19 at 07:30; Stop 07/22/19 at 13:02; Status DC Info (PHARMACY MONITORING -- do not chart) 1 each PRN DAILY PRN MC SEE COMMENTS; Start 07/22/19 at 07:30; Stop 07/24/19 at 12:45; Status DC Sodium Chloride 90 meq/Potassium Chloride 15 meq/ Potassium Phosphate 10 mmol/ Magnesium Sulfate 8 meq/Calcium Gluconate 15 meq/ Multivitamins 10 ml/Chromium/ Copper/Manganese/ Seleni/Zn 0.5 ml/ Insulin Human Regular 25 unit/ Total Parenteral Nutrition/Amino Acids/Dextrose/ Fat Emulsion Intravenous 1,400 ml @ 58.333 mls/ hr TPN CONT IV Last administered on 07/22/19at 22:19; Start 07/22/19 at 22:00; Stop 07/23/19 at 21:59; Status DC Heparin Sodium (Porcine) (Heparin Sodium) 5,000 unit Q12HR SQ Last administered on 08/14/19at 08:59; Start 07/22/19 at 21:00; Stop 08/14/19 at 10:05; Status DC Ondansetron HCl (Zofran) 4 mg PRN Q6HRS PRN IV NAUSEA/VOMITING; Start 07/25/19 at 07:00; Stop 07/26/19 at 06:59; Status DC Fentanyl Citrate (Fentanyl 2ml Vial) 25 mcg PRN Q5MIN PRN IV MILD PAIN 1-3; Start 07/25/19 at 07:00; Stop 07/26/19 at 06:59; Status DC Fentanyl Citrate (Fentanyl 2ml Vial) 50 mcg PRN Q5MIN PRN IV MODERATE TO SEVERE PAIN; Start 07/25/19 at 07:00; Stop 07/26/19 at 06:59; Status DC Ringer's Solution 1,000 ml @ 30 mls/hr Q24H IV ; Start 07/25/19 at 07:00; Stop 07/25/19 at 18:59; Status DC Lidocaine HCl (Xylocaine-Mpf 1% 2ml Vial) 2 ml PRN 1X PRN ID PRIOR TO IV START; Start 07/25/19 at 07:00; Stop 07/26/19 at 06:59; Status DC Prochlorperazine Edisylate (Compazine) 5 mg PACU PRN PRN IV NAUSEA, MRX1; Start 07/25/19 at 07:00; Stop 07/26/19 at 06:59; Status DC Sodium Chloride 1,000 ml @ 1,000 mls/hr Q1H PRN IV hypotension; Start 07/23/19 at 09:10; Stop 07/23/19 at 15:09; Status DC Albumin Human 200 ml @ 200 mls/hr 1X PRN PRN IV Hypotension Last administered on 07/23/19at 10:10; Start 07/23/19 at 09:15; Stop 07/23/19 at 15:14; Status DC Sodium Chloride 1,000 ml @ 400 mls/hr Q2H30M PRN IV PATENCY; Start 07/23/19 at 09:10; Stop 07/23/19 at 21:09; Status DC Info (PHARMACY MONITORING -- do not chart) 1 each PRN DAILY PRN MC SEE COMMENTS; Start 07/23/19 at 09:15; Stop 07/24/19 at 12:45; Status DC Info (PHARMACY MONITORING -- do not chart) 1 each PRN DAILY PRN MC SEE CO MMENTS; Start 07/23/19 at 09:15; Stop 07/24/19 at 12:45; Status DC Sodium Chloride 90 meq/Potassium Chloride 15 meq/ Potassium Phosphate 10 mmol/ Magnesium Sulfate 8 meq/Calcium Gluconate 15 meq/ Multivitamins 10 ml/Chromium/ Copper/Manganese/ Seleni/Zn 0.5 ml/ Insulin Human Regular 25 unit/ Total Parenteral Nutrition/Amino Acids/Dextrose/ Fat Emulsion Intravenous 1,400 ml @ 58.333 mls/ hr TPN CONT IV Last administered on 07/23/19at 22:10; Start 07/23/19 at 22:00; Stop 07/24/19 at 21:59; Status DC Magnesium Sulfate 50 ml @ 25 mls/hr PRN DAILY PRN IV for Mag < 1.7 on am labs Last administered on 10/06/19at 10:57; Start 07/24/19 at 09:15 Sodium Chloride 90 meq/Potassium Chloride 15 meq/ Potassium Phosphate 10 mmol/ Magnesium Sulfate 8 meq/Calcium Gluconate 15 meq/ Multivitamins 10 ml/Chromium/ Copper/Manganese/ Seleni/Zn 0.5 ml/ Insulin Human Regular 25 unit/ Total Parenteral Nutrition/Amino Acids/Dextrose/ Fat Emulsion Intravenous 1,400 ml @ 58.333 mls/ hr TPN CONT IV Last administered on 07/24/19at 21:20; Start 07/24/19 at 22:00; Stop 07/25/19 at 21:59; Status DC Sodium Chloride 1,000 ml @ 1,000 mls/hr Q1H PRN IV hypotension; Start 07/24/19 at 12:23; Stop 07/24/19 at 18:22; Status DC Albumin Human 200 ml @ 200 mls/hr 1X ONCE IV Last administered on 07/24/19at 1 3:34; Start 07/24/19 at 12:30; Stop 07/24/19 at 13:29; Status DC Diphenhydramine HCl (Benadryl) 25 mg 1X PRN PRN IV ITCHING; Start 07/24/19 at 12:30; Stop 07/25/19 at 12:29; Status DC Diphenhydramine HCl (Benadryl) 25 mg 1X PRN PRN IV ITCHING; Start 07/24/19 at 12:30; Stop 07/25/19 at 12:29; Status DC Info (PHARMACY MONITORING -- do not chart) 1 each PRN DAILY PRN MC SEE COMMENTS; Start 07/24/19 at 12:30; Status Cancel Bupivacaine HCl/ Epinephrine Bitart (Sensorcain-Epi 0.5%-1:305820 Mpf) 30 ml STK-MED ONCE .ROUTE Last administered on 07/25/19at 11:44; Start 07/25/19 at 11:00; Stop 07/25/19 at 11:01; Status DC Cellulose (Surgicel Fibrillar 1x2) 1 each STK-MED ONCE .ROUTE ; Start 07/25/19 at 11:00; Stop 07/25/19 at 11:01; Status DC Sodium Chloride 90 meq/Potassium Chloride 15 meq/ Potassium Phosphate 10 mmol/ Magnesium Sulfate 12 meq/Calcium Gluconate 15 meq/ Multivitamins 10 ml/Chromium/ Copper/Manganese/ Seleni/Zn 0.5 ml/ Insulin Human Regular 25 unit/ Total Parenteral Nutrition/Amino Acids/Dextrose/ Fat Emulsion Intravenous 1,400 ml @ 58.333 mls/ hr TPN CONT IV Last administered on 07/25/19at 22:24; Start 07/25/19 at 22:00; Stop 07/26/19 at 21:59; Status DC Propofol 20 ml @ As Directed STK-MED ONCE IV ; Start 07/25/19 at 11:07; Stop 07/25/19 at 11:07; Status DC Cellulose (Surgicel Hemostat 4x8) 1 each STK-MED ONCE .ROUTE Last administered on 07/25/19at 11:44; Start 07/25/19 at 11:55; Stop 07/25/19 at 11:56; Status DC Sevoflurane (Ultane) 60 ml STK-MED ONCE IH ; Start 07/25/19 at 12:46; Stop 07/25/19 at 12:46; Status DC Sodium Chloride 1,000 ml @ 1,000 mls/hr Q1H PRN IV hypotension; Start 07/25/19 at 13:51; Stop 07/25/19 at 19:50; Status DC Albumin Human 200 ml @ 200 mls/hr 1X PRN PRN IV Hypotension Last administered on 07/25/19at 14:51; Start 07/25/19 at 14:00; Stop 07/25/19 at 19:59; Status DC Diphenhydramine HCl (Benadryl) 25 mg 1X PRN PRN IV ITCHING; Start 07/25/19 at 14:00; Stop 07/26/19 at 13:59; Status DC Diphenhydramine HCl (Benadryl) 25 mg 1X PRN PRN IV ITCHING; Start 07/25/19 at 14:00; Stop 07/26/19 at 13:59; Status DC Sodium Chloride 1,000 ml @ 400 mls/hr Q2H30M PRN IV PATENCY; Start 07/25/19 at 13:51; Stop 07/26/19 at 01:50; Status DC Info (PHARMACY MONITORING -- do not chart) 1 each PRN DAILY PRN MC SEE COMMENTS; Start 07/25/19 at 14:00; Stop 07/28/19 at 08:16; Status DC Heparin Sodium (Porcine) (Hep Lock Adult) 500 unit STK-MED ONCE IVP ; Start 07/26/19 at 09:29; Stop 07/26/19 at 09:30; Status DC Sodium Chloride 1,000 ml @ 1,000 mls/hr Q1H PRN IV hypotension; Start 07/26/19 at 10:43; Stop 07/26/19 at 16:42; Status DC Sodium Chloride 1,000 ml @ 400 mls/hr Q2H30M PRN IV PATENCY; Start 07/26/19 at 10:43; Stop 07/26/19 at 22:42; Status DC Info (PHARMACY MONITORING -- do not chart) 1 each PRN DAILY PRN MC SEE COMMENTS; Start 07/26/19 at 10:45; Status UNV Info (PHARMACY MONITORING -- do not chart) 1 each PRN DAILY PRN MC SEE COMMENTS; Start 07/26/19 at 10:45; Status UNV Sodium Chloride 90 meq/Potassium Chloride 15 meq/ Magnesium Sulfate 12 meq/Calcium Gluconate 15 meq/ Multivitamins 10 ml/Chromium/ Copper/Manganese/ Seleni/Zn 0.5 ml/ Insulin Human Regular 25 unit/ Total Parenteral Nutrition/Amino Acids/Dextrose/ Fat Emulsion Intravenous 1,400 ml @ 58.333 mls/ hr TPN CONT IV Last administered on 07/26/19at 22:13; Start 07/26/19 at 22:00; Stop 07/27/19 at 21:59; Status DC Sodium Chloride 1,000 ml @ 1,000 mls/hr Q1H PRN IV hypotension; Start 07/27/19 at 07:50; Stop 07/27/19 at 13:49; Status DC Albumin Human 200 ml @ 200 mls/hr 1X ONCE IV ; Start 07/27/19 at 08:00; Stop 07/27/19 at 08:53; Status DC Diphenhydramine HCl (Benadryl) 25 mg 1X PRN PRN IV ITCHING; Start 07/27/19 at 08:00; Stop 07/28/19 at 07:59; Status DC Diphenhydramine HCl (Benadryl) 25 mg 1X PRN PRN IV ITCHING; Start 07/27/19 at 08:00; Stop 07/28/19 at 07:59; Status DC Info (PHARMACY MONITORING -- do not chart) 1 each PRN DAILY PRN MC SEE COMMENTS; Start 07/27/19 at 08:00; Stop 07/28/19 at 08:16; Status DC Albumin Human 50 ml @ 50 mls/hr 1X ONCE IV ; Start 07/27/19 at 08:53; Stop 07/27/19 at 08:56; Status DC Albumin Human 200 ml @ 50 mls/hr PRN 1X PRN IV HYPOTENSION Last administered on 08/02/19at 11:54; Start 07/27/19 at 09:00; Stop 09/08/19 at 11:14; Status DC Meropenem 500 mg/ Sodium Chloride 50 ml @ 100 mls/hr Q12H IV Last administered on 08/16/19at 10:45; Start 07/27/19 at 10:00; Stop 08/16/19 at 12:37; Status DC Sodium Chloride 90 meq/Magnesium Sulfate 12 meq/ Calcium Gluconate 15 meq/ Multivitamins 10 ml/Chromium/ Copper/Manganese/ Seleni/Zn 0.5 ml/ Insulin Human Regular 25 unit/ Total Parenteral Nutrition/Amino Acids/Dextrose/ Fat Emulsion Intravenous 1,400 ml @ 58.333 mls/ hr TPN CONT IV Last administered on 07/27/19at 21:41; Start 07/27/19 at 22:00; Stop 07/28/19 at 21:59; Status DC Sodium Chloride 1,000 ml @ 1,000 mls/hr Q1H PRN IV hypotension; Start 07/28/19 at 07:58; Stop 07/28/19 at 13:57; Status DC Albumin Human 200 ml @ 200 mls/hr 1X PRN PRN IV Hypotension Last administered on 07/28/19at 09:30; Start 07/28/19 at 08:00; Stop 07/28/19 at 13:59; Status DC Sodium Chloride 1,000 ml @ 400 mls/hr Q2H30M PRN IV PATENCY; Start 07/28/19 at 07:58; Stop 07/28/19 at 19:57; Status DC Info (PHARMACY MONITORING -- do not chart) 1 each PRN DAILY PRN MC SEE COMMENTS; Start 07/28/19 at 08:00; Status Cancel Info (PHARMACY MONITORING -- do not chart) 1 each PRN DAILY PRN MC SEE COMMENTS; Start 07/28/19 at 08:15; Status UNV Sodium Chloride 90 meq/Potassium Phosphate 5 mmol/ Magnesium Sulfate 12 meq/Calcium Gluconate 15 meq/ Multivitamins 10 ml/Chromium/ Copper/Manganese/ Seleni/Zn 0.5 ml/ Insulin Human Regular 30 unit/ Total Parenteral Nutrition/Amino Acids/Dextrose/ Fat Emulsion Intravenous 1,400 ml @ 58.333 mls/ hr TPN CONT IV Last administered on 07/28/19at 22:08; Start 07/28/19 at 22:00; Stop 07/29/19 at 21:59; Status DC Linezolid/Dextrose 300 ml @ 300 mls/hr Q12HR IV Last administered on 08/08/19at 20:40; Start 07/29/19 at 11:00; Stop 08/09/19 at 08:10; Status DC Sodium Chloride 90 meq/Potassium Phosphate 15 mmol/ Magnesium Sulfate 12 m eq/Calcium Gluconate 15 meq/ Multivitamins 10 ml/Chromium/ Copper/Manganese/ Seleni/Zn 0.5 ml/ Insulin Human Regular 30 unit/ Total Parenteral Nutrition/Amino Acids/Dextrose/ Fat Emulsion Intravenous 1,400 ml @ 58.333 mls/ hr TPN CONT IV Last administered on 07/29/19at 21:49; Start 07/29/19 at 22:00; Stop 07/30/19 at 21:59; Status DC Sodium Chloride 90 meq/Potassium Phosphate 15 mmol/ Magnesium Sulfate 12 meq/Calcium Gluconate 15 meq/ Multivitamins 10 ml/Chromium/ Copper/Manganese/ Seleni/Zn 0.5 ml/ Insulin Human Regular 40 unit/ Total Parenteral Nutrition/Amino Acids/Dextrose/ Fat Emulsion Intravenous 1,400 ml @ 58.333 mls/ hr TPN CONT IV Last administered on 07/30/19at 21:21; Start 07/30/19 at 22:00; Stop 07/31/19 at 21:59; Status DC Sodium Chloride 1,000 ml @ 1,000 mls/hr Q1H PRN IV hypotension; Start 07/30/19 at 13:26; Stop 07/30/19 at 19:25; Status DC Albumin Human 200 ml @ 200 mls/hr 1X PRN PRN IV Hypotension Last administered on 07/30/19at 15:00; Start 07/30/19 at 13:30; Stop 07/30/19 at 19:29; Status DC Sodium Chloride (Normal Saline Flush) 10 ml 1X PRN PRN IV AP catheter pack; Start 07/30/19 at 13:30; Stop 07/31/19 at 13:29; Status DC Sodium Chloride (Normal Saline Flush) 10 ml 1X PRN PRN IV CREATIVE RECRUITER catheter pack; Start 07/30/19 at 13:30; Stop 07/31/19 at 13:29; Status DC Sodium Chloride 1,000 ml @ 400 mls/hr Q2H30M PRN IV PATENCY; Start 07/30/19 at 13:26; Stop 07/31/19 at 01:25; Status DC Info (PHARMACY MONITORING -- do not chart) 1 each PRN DAILY PRN MC SEE COMMENTS; Start 07/30/19 at 13:30; Stop 07/30/19 at 13:33; Status DC Info (PHARMACY MONITORING -- do not chart) 1 each PRN DAILY PRN MC SEE COMMENTS; Start 07/30/19 at 13:30; Stop 07/30/19 at 13:34; Status DC Sodium Chloride 90 meq/Potassium Phosphate 19 mmol/ Magnesium Sulfate 12 me q/Calcium Gluconate 15 meq/ Multivitamins 10 ml/Chromium/ Copper/Manganese/ Seleni/Zn 0.5 ml/ Insulin Human Regular 40 unit/ Total Parenteral Nutrition/Amino Acids/Dextrose/ Fat Emulsion Intravenous 1,400 ml @ 58.333 mls/ hr TPN CONT IV Last administered on 07/31/19at 21:54; Start 07/31/19 at 22:00; Stop 08/01/19 at 21:59; Status DC Sodium Chloride 1,000 ml @ 1,000 mls/hr Q1H PRN IV hypotension; Start 08/01/19 at 09:35; Stop 08/01/19 at 15:34; Status DC Albumin Human 200 ml @ 200 mls/hr 1X PRN PRN IV Hypotension; Start 08/01/19 at 09:45; Stop 08/01/19 at 15:44; Status DC Diphenhydramine HCl (Benadryl) 25 mg 1X PRN PRN IV ITCHING; Start 08/01/19 at 09:45; Stop 08/02/19 at 09:44; Status DC Diphenhydramine HCl (Benadryl) 25 mg 1X PRN PRN IV ITCHING; Start 08/01/19 at 09:45; Stop 08/02/19 at 09:44; Status DC Sodium Chloride 1,000 ml @ 400 mls/hr Q2H30M PRN IV PATENCY; Start 08/01/19 at 09:35; Stop 08/01/19 at 21:34; Status DC Info (PHARMACY MONITORING -- do not chart) 1 each PRN DAILY PRN MC SEE CO MMENTS; Start 08/01/19 at 09:45; Status Cancel Sodium Chloride 100 meq/Potassium Phosphate 19 mmol/ Magnesium Sulfate 12 meq/Ca lcium Gluconate 15 meq/ Multivitamins 10 ml/Chromium/ Copper/Manganese/ Seleni/Zn 0.5 ml/ Insulin Human Regular 40 unit/ Potassium Chloride 20 meq/ Total Parenteral Nutrition/Amino Acids/Dextrose/ Fat Emulsion Intravenous 1,400 ml @ 58.333 mls/ hr TPN CONT IV Last administered on 08/01/19at 22:02; Start 08/01/19 at 22:00; Stop 08/02/19 at 21:59; Status DC Furosemide (Lasix) 40 mg 1X ONCE IVP Last administered on 08/01/19at 14:39; Start 08/01/19 at 14:30; Stop 08/01/19 at 14:31; Status DC Metronidazole 100 ml @ 100 mls/hr Q8HRS IV Last administered on 08/09/19at 06:04; Start 08/02/19 at 10:00; Stop 08/09/19 at 08:10; Status DC Sodium Chloride 1,000 ml @ 1,000 mls/hr Q1H PRN IV hypotension; Start 08/02/19 at 08:00; Stop 08/02/19 at 13:59; Status DC Albumin Human 200 ml @ 200 mls/hr 1X PRN PRN IV Hypotension; Start 08/02/19 at 08:00; Stop 08/02/19 at 13:59; Status DC Sodium Chloride 1,000 ml @ 400 mls/hr Q2H30M PRN IV PATENCY; Start 08/02/19 at 08:00; Stop 08/02/19 at 19:59; Status DC Info (PHARMACY MONITORING -- do not chart) 1 each PRN DAILY PRN MC SEE COMMENTS; Start 08/02/19 at 11:30; Status UNV Info (PHARMACY MONITORING -- do not chart) 1 each PRN DAILY PRN MC SEE COMMENTS; Start 08/02/19 at 11:30; Stop 08/04/19 at 12:13; Status DC Sodium Chloride 100 meq/Potassium Phosphate 19 mmol/ Magnesium Sulfate 12 meq/Calcium Gluconate 15 meq/ Multivitamins 10 ml/Chromium/ Copper/Manganese/ Seleni/Zn 0.5 ml/ Insulin Human Regular 40 unit/ Potassium Chloride 20 meq/ Total Parenteral Nutrition/Amino Acids/Dextrose/ Fat Emulsion Intravenous 1,400 ml @ 58.333 mls/ hr TPN CONT IV Last administered on 08/02/19at 21:52; Start 08/02/19 at 22:00; Stop 08/03/19 at 21:59; Status DC Sodium Chloride (Normal Saline Flush) 10 ml QSHIFT PRN IV AFTER MEDS AND BLOOD DRAWS; Start 08/02/19 at 15:00; Stop 08/30/19 at 11:27; Status DC Sodium Chloride (Normal Saline Flush) 10 ml PRN Q5MIN PRN IV AFTER MEDS AND BLOOD DRAWS; Start 08/02/19 at 15:00 Sodium Chloride (Normal Saline Flush) 20 ml PRN Q5MIN PRN IV AFTER MEDS AND BLOOD DRAWS; Start 08/02/19 at 15:00 Sodium Chloride 100 meq/Potassium Phosphate 19 mmol/ Magnesium Sulfate 12 meq/Calcium Gluconate 15 meq/ Multivitamins 10 ml/Chromium/ Copper/Manganese/ Seleni/Zn 0.5 ml/ Insulin Human Regular 40 unit/ Potassium Chloride 20 meq/ Total Parenteral Nutrition/Amino Acids/Dextrose/ Fat Emulsion Intravenous 1,400 ml @ 58.333 mls/ hr TPN CONT IV Last administered on 08/03/19at 21:20; Start 08/03/19 at 22:00; Stop 08/04/19 at 21:59; Status DC Lidocaine HCl (Buffered Lidocaine 1%) 3 ml STK-MED ONCE .ROUTE ; Start 08/03/19 at 13:16; Stop 08/03/19 at 13:16; Status DC Lidocaine HCl (Buffered Lidocaine 1%) 6 ml 1X ONCE INJ Last administered on 08/03/19at 13:45; Start 08/03/19 at 13:30; Stop 08/03/19 at 13:31; Status DC Albumin Human 100 ml @ 100 mls/hr 1X ONCE IV Last administered on 08/03/19at 15:41; Start 08/03/19 at 15:00; Stop 08/03/19 at 15:59; Status DC Albumin Human 50 ml @ 50 mls/hr 1X ONCE IV Last administered on 08/03/19at 15:00; Start 08/03/19 at 15:00; Stop 08/03/19 at 15:59; Status DC Info (PHARMACY MONITORING -- do not chart) 1 each PRN DAILY PRN MC SEE COMMENTS; Start 08/04/19 at 11:30; Status Cancel Info (PHARMACY MONITORING -- do not chart) 1 each PRN DAILY PRN MC SEE COMMENTS; Start 08/04/19 at 11:30; Status UNV Sodium Chloride 100 meq/Potassium Phosphate 10 mmol/ Magnesium Sulfate 12 meq/Calcium Gluconate 15 meq/ Multivitamins 10 ml/Chromium/ Copper/Manganese/ Seleni/Zn 0.5 ml/ Insulin Human Regular 35 unit/ Potassium Chloride 20 meq/ Total Parenteral Nutrition/Amino Acids/Dextrose/ Fat Emulsion Intravenous 1,400 ml @ 58.333 mls/ hr TPN CONT IV Last administered on 08/04/19at 22:10; Start 08/04/19 at 22:00; Stop 08/05/19 at 21:59; Status DC Sodium Chloride 100 meq/Potassium Phosphate 5 mmol/ Magnesium Sulfate 12 meq/Calcium Gluconate 15 meq/ Multivitamins 10 ml/Chromium/ Copper/Manganese/ Seleni/Zn 0.5 ml/ Insulin Human Regular 35 unit/ Potassium Chloride 20 meq/ Total Parenteral Nutrition/Amino Acids/Dextrose/ Fat Emulsion Intravenous 1,400 ml @ 58.333 mls/ hr TPN CONT IV Last administered on 08/05/19at 22:59; Start 08/05/19 at 22:00; Stop 08/06/19 at 21:59; Status DC Sodium Chloride 1,000 ml @ 1,000 mls/hr Q1H PRN IV hypotension; Start 08/06/19 at 08:27; Stop 08/06/19 at 14:26; Status DC Albumin Human 200 ml @ 200 mls/hr 1X PRN PRN IV Hypotension Last administered on 08/06/19at 09:18; Start 08/06/19 at 08:30; Stop 08/06/19 at 14:29; Status DC Sodium Chloride 1,000 ml @ 400 mls/hr Q2H30M PRN IV PATENCY; Start 08/06/19 at 08:27; Stop 08/06/19 at 20:26; Status DC Info (PHARMACY MONITORING -- do not chart) 1 each PRN DAILY PRN MC SEE COMMENTS; Start 08/06/19 at 08:30; Status Cancel Info (PHARMACY MONITORING -- do not chart) 1 each PRN DAILY PRN MC SEE COMMENTS; Start 08/06/19 at 08:30; Stop 08/14/19 at 13:10; Status DC Sodium Chloride 100 meq/Potassium Chloride 40 meq/ Magnesium Sulfate 15 meq/Calcium Gluconate 15 meq/ Multivitamins 10 ml/Chromium/ Copper/Manganese/ Seleni/Zn 0.5 ml/ Insulin Human Regular 35 unit/ Total Parenteral Nutrition/Ami no Acids/Dextrose/ Fat Emulsion Intravenous 1,400 ml @ 58.333 mls/ hr TPN CONT IV Last administered on 08/06/19at 22:00; Start 08/06/19 at 22:00; Stop 08/07/19 at 21:59; Status DC Potassium Chloride/Water 100 ml @ 100 mls/hr 1X ONCE IV Last administered on 08/06/19at 17:28; Start 08/06/19 at 14:45; Stop 08/06/19 at 15:44; Status DC Sodium Chloride 100 meq/Potassium Chloride 40 meq/ Magnesium Sulfate 15 meq/Calcium Gluconate 15 meq/ Multivitamins 10 ml/Chromium/ Copper/Manganese/ Seleni/Zn 0.5 ml/ Insulin Human Regular 35 unit/ Total Parenteral Nutrition/Amino Acids/Dextrose/ Fat Emulsion Intravenous 1,400 ml @ 58.333 mls/ hr TPN CONT IV Last administered on 08/07/19at 22:46; Start 08/07/19 at 22:00; Stop 08/08/19 at 21:59; Status DC Sodium Chloride 100 meq/Potassium Chloride 40 meq/ Magnesium Sulfate 20 meq/Calcium Gluconate 15 meq/ Multivitamins 10 ml/Chromium/ Copper/Manganese/ Seleni/Zn 0.5 ml/ Insulin Human Regular 35 unit/ Total Parenteral Nutrition/Amino Acids/Dextrose/ Fat Emulsion Intravenous 1,400 ml @ 58.333 mls/ hr TPN CONT IV Last administered on 08/08/19at 22:31; Start 08/08/19 at 22:00; Stop 08/09/19 at 21:59; Status DC Fentanyl Citrate (Fentanyl 2ml Vial) 50 mcg PRN Q2HR PRN IVP PAIN Last administered on 08/15/19at 13:32; Start 08/08/19 at 21:00; Stop 08/16/19 at 12:53; Status DC Fentanyl Citrate (Fentanyl 2ml Vial) 25 mcg PRN Q2HR PRN IVP PAIN; Start 08/07 at 21:00; Stop 08/16/19 at 12:54; Status DC Enoxaparin Sodium (Lovenox 100mg Syringe) 100 mg Q12HR SQ ; Start 08/09/19 at 2 1:00; Status UNV Amino Acids/ Glycerin/ Electrolytes 1,000 ml @ 75 mls/hr [id number] IV ; Start 08/08/19 at 21:15; Status UNV Sodium Chloride 1,000 ml @ 1,000 mls/hr Q1H PRN IV hypotension; Start 08/09/19 at 07:56; Stop 08/09/19 at 13:55; Status DC Albumin Human 200 ml @ 200 mls/hr 1X PRN PRN IV Hypotension Last administered on 08/09/19at 08:40; Start 08/09/19 at 08:00; Stop 08/09/19 at 13:59; Status DC Sodium Chloride 1,000 ml @ 400 mls/hr Q2H30M PRN IV PATENCY; Start 08/09/19 at 07:56; Stop 08/09/19 at 19:55; Status DC Info (PHARMACY MONITORING -- do not chart) 1 each PRN DAILY PRN MC SEE COMMENTS; Start 08/09/19 at 08:00; Status UNV Info (PHARMACY MONITORING -- do not chart) 1 each PRN DAILY PRN MC SEE COMMENTS; Start 08/09/19 at 08:00; Status UNV Daptomycin 430 mg/ Sodium Chloride 50 ml @ 100 mls/hr Q24H IV Last administered on 08/09/19at 12:35; Start 08/09/19 at 09:00; Stop 08/09/19 at 12:49; Status DC Sodium Chloride 100 meq/Potassium Chloride 40 meq/ Magnesium Sulfate 20 meq/Calcium Gluconate 15 meq/ Multivitamins 10 ml/Chromium/ Copper/Manganese/ Seleni/Zn 0.5 ml/ Insulin Human Regular 35 unit/ Total Parenteral Nut rition/Amino Acids/Dextrose/ Fat Emulsion Intravenous 1,400 ml @ 58.333 mls/ hr TPN CONT IV Last administered on 08/09/19at 21:26; Start 08/09/19 at 22:00; Stop 08/10/19 at 21:59; Status DC Daptomycin 430 mg/ Sodium Chloride 50 ml @ 100 mls/hr Q48H IV ; Start 08/11/19 at 09:00; Stop 08/10/19 at 11:55; Status DC Sodium Chloride 100 meq/Potassium Chloride 40 meq/ Magnesium Sulfate 20 meq/Calcium Gluconate 15 meq/ Multivitamins 10 ml/Chromium/ Copper/Manganese/ Seleni/Zn 0.5 ml/ Insulin Human Regular 35 unit/ Total Parenteral Nutrition/Amino Acids/Dextrose/ Fat Emulsion Intravenous 1,400 ml @ 58.333 mls/ hr TPN CONT IV Last administered on 08/10/19at 22:27; Start 08/10/19 at 22:00; Stop 08/11/19 at 21:59; Status DC Daptomycin 430 mg/ Sodium Chloride 50 ml @ 100 mls/hr Q24H IV Last administered on 08/12/19at 15:07; Start 08/10/19 at 13:00; Stop 08/13/19 at 13:15; Status DC Sodium Chloride 100 meq/Potassium Chloride 40 meq/ Magnesium Sulfate 20 meq/Calcium Gluconate 10 meq/ Multivitamins 10 ml/Chromium/ Copper/Manganese/ Seleni/Zn 0.5 ml/ Insulin Human Regular 35 unit/ Total Parenteral Nutrition/Amino Acids/Dextrose/ Fat Emulsion Intravenous 1,400 ml @ 58.333 mls/ hr TPN CONT IV Last administered on 08/12/19at 00:06; Start 08/11/19 at 22:00; Stop 08/12/19 at 21:59; Status DC Alteplase, Recombinant (Cathflo For Central Catheter Clearance) 1 mg 1X ONCE INT CAT Last administered on 08/12/19at 11:44; Start 08/12/19 at 10:45; Stop 08/12/19 at 10:46; Status DC Ondansetron HCl (Zofran) 4 mg PRN Q6HRS PRN IV NAUSEA/VOMITING; Start 08/15/19 at 07:00; Stop 08/16/19 at 06:59; Status DC Fentanyl Citrate (Fentanyl 2ml Vial) 25 mcg PRN Q5MIN PRN IV MILD PAIN 1-3; Start 08/15/19 at 07:00; Stop 08/16/19 at 06:59; Status DC Fentanyl Citrate (Fentanyl 2ml Vial) 50 mcg PRN Q5MIN PRN IV MODERATE TO SEVERE PAIN Last administered on 08/15/19at 10:17; Start 08/15/19 at 07:00; Stop 08/16/19 at 06:59; Status DC Ringer's Solution 1,000 ml @ 30 mls/hr Q24H IV ; Start 08/15/19 at 07:00; Stop 08/15/19 at 18:59; Status DC Lidocaine HCl (Xylocaine-Mpf 1% 2ml Vial) 2 ml PRN 1X PRN ID PRIOR TO IV START; Start 08/15/19 at 07:00; Stop 08/16/19 at 06:59; Status DC Prochlorperazine Edisylate (Compazine) 5 mg PACU PRN PRN IV NAUSEA, MRX1; Start 08/15/19 at 07:00; Stop 08/16/19 at 06:59; Status DC Sodium Acetate 50 meq/Potassium Acetate 55 meq/ Magnesium Sulfate 20 meq/Calcium Gluconate 10 meq/ Multivitamins 10 ml/Chromium/ Copper/Manganese/ Seleni/Zn 0.5 ml/ Insulin Human Regular 35 unit/ Total Parenteral Nutrition/Amino Acids/Dext amarilis/ Fat Emulsion Intravenous 1,400 ml @ 58.333 mls/ hr TPN CONT IV ; Start 08/12/19 at 22:00; Stop 08/12/19 at 14:15; Status DC Sodium Acetate 50 meq/Potassium Acetate 55 meq/ Magnesium Sulfate 20 meq/Calcium Gluconate 10 meq/ Multivitamins 10 ml/Chromium/ Copper/Manganese/ Seleni/Zn 0.5 ml/ Insulin Human Regular 35 unit/ Total Parenteral Nutrition/Amino Acids/Dextrose/ Fat Emulsion Intravenous 1,800 ml @ 75 mls/hr TPN CONT IV Last administered on 08/12/19at 22:38; Start 08/12/19 at 22:00; Stop 08/13/19 at 21:59; Status DC Sodium Chloride 1,000 ml @ 1,000 mls/hr Q1H PRN IV hypotension; Start 08/12/19 at 15:31; Stop 08/12/19 at 21:30; Status DC Diphenhydramine HCl (Benadryl) 25 mg 1X PRN PRN IV ITCHING; Start 08/12/19 at 15:45; Stop 08/13/19 at 15:44; Status DC Diphenhydramine HCl (Benadryl) 25 mg 1X PRN PRN IV ITCHING; Start 08/12/19 at 15:45; Stop 08/13/19 at 15:44; Status DC Sodium Chloride 1,000 ml @ 400 mls/hr Q2H30M PRN IV PATENCY; Start 08/12/19 at 15:31; Stop 08/13/19 at 03:30; Status DC Info (PHARMACY MONITORING -- do not chart) 1 each PRN DAILY PRN MC SEE COMMENTS; Start 08/12/19 at 15:45; Stop 09/13/19 at 14:14; Status DC Sodium Acetate 50 meq/Potassium Acetate 55 meq/ Magnesium Sulfate 20 meq/Calcium Gluconate 10 meq/ Multivitamins 10 ml/Chromium/ Copper/Manganese/ Seleni/Zn 0.5 ml/ Insulin Human Regular 35 unit/ Total Parenteral Nutrition/Amino Acids/Dextr ose/ Fat Emulsion Intravenous 1,800 ml @ 75 mls/hr TPN CONT IV Last administered on 08/13/19at 22:03; Start 08/13/19 at 22:00; Stop 08/14/19 at 21:59; Status DC Daptomycin 430 mg/ Sodium Chloride 50 ml @ 100 mls/hr Q24H IV Last administered on 08/18/19at 13:00; Start 08/13/19 at 13:00; Stop 08/18/19 at 20:58; Status DC Heparin Sodium (Porcine) 1000 unit/Sodium Chloride 1,001 ml @ 1,001 mls/hr 1X ONCE IRR ; Start 08/15/19 at 06:00; Stop 08/15/19 at 06:59; Status DC Potassium Acetate 55 meq/Magnesium Sulfate 20 meq/ Calcium Gluconate 10 meq/ Multivitamins 10 ml/Chromium/ Copper/Manganese/ Seleni/Zn 0.5 ml/ Insulin Human Regular 35 unit/ Total Parenteral Nutrition/Amino Acids/Dextrose/ Fat Emulsion Intravenous 1,920 ml @ 80 mls/hr TPN CONT IV Last administered on 08/14/19at 22:10; Start 08/14/19 at 22:00; Stop 08/15/19 at 21:59; Status DC Dexamethasone Sodium Phosphate (Decadron) 4 mg STK-MED ONCE .ROUTE ; Start 08/15/19 at 10:56; Stop 08/15/19 at 10:57; Status DC Ondansetron HCl (Zofran) 4 mg STK-MED ONCE .ROUTE ; Start 08/15/19 at 10:56; Stop 08/15/19 at 10:57; Status DC Rocuronium [place] (Zemuron) 50 mg STK-MED ONCE .ROUTE ; Start 08/15/19 at 10:56; Stop 08/15/19 at 10:57; Status DC Fentanyl Citrate (Fentanyl 2ml Vial) 100 mcg STK-MED ONCE .ROUTE ; Start 08/15/19 at 10:56; Stop 08/15/19 at 10:57; Status DC Bupivacaine HCl/ Epinephrine Bitart (Sensorcain-Epi 0.5%-1:[id number] Mpf) 30 ml STK-MED ONCE .ROUTE Last administered on 08/15/19at 12:01; Start 08/15/19 at 10:58; Stop 08/15/19 at 10:58; Status DC Cellulose (Surgicel Hemostat 2x14) 1 each STK-MED ONCE .ROUTE ; Start 08/15/19 at 10:58; Stop 08/15/19 at 10:59; Status DC Iohexol (Omnipaque 300 Mg/ml) 50 ml STK-MED ONCE .ROUTE ; Start 08/15/19 at 10:58; Stop 08/15/19 at 10:59; Status DC Cellulose (Surgicel Hemostat 4x8) 1 each STK-MED ONCE .ROUTE ; Start 08/15/19 at 10:58; Stop 08/15/19 at 10:59; Status DC Bisacodyl (Dulcolax Supp) 10 mg STK-MED ONCE .ROUTE ; Start 08/15/19 at 10:59; Stop 08/15/19 at 10:59; Status DC Heparin Sodium (Porcine) 1000 unit/Sodium Chloride 1,001 ml @ 1,001 mls/hr 1X ONCE IRR ; Start 08/15/19 at 12:00; Stop 08/15/19 at 12:59; Status DC Propofol 20 ml @ As Directed STK-MED ONCE IV ; Start 08/15/19 at 11:05; Stop 08/15/19 at 11:05; Status DC Sevoflurane (Ultane) 90 ml STK-MED ONCE IH ; Start 08/15/19 at 11:05; Stop 08/15/19 at 11:05; Status DC Sevoflurane (Ultane) 60 ml STK-MED ONCE IH ; Start 08/15/19 at 12:26; Stop 08/15/19 at 12:27; Status DC Propofol 20 ml @ As Directed STK-MED ONCE IV ; Start 08/15/19 at 12:26; Stop 08/15/19 at 12:27; Status DC Phenylephrine HCl (PHENYLEPHRINE in 0.9% NACL PF) 1 mg STK-MED ONCE IV ; Start 08/15/19 at 12:34; Stop 08/15/19 at 12:34; Status DC Heparin Sodium (Porcine) (Heparin Sodium) 5,000 unit Q12HR SQ Last administered on 08/24/19at 20:57; Start 08/15/19 at 21:00; Stop 08/25/19 at 09:59; Status DC Sodium Chloride (Normal Saline Flush) 3 ml QSHIFT PRN IV AFTER MEDS AND BLOOD DRAWS; Start 08/15/19 at 13:45; Status Cancel Naloxone HCl (Narcan) 0.4 mg PRN Q2MIN PRN IV SEE INSTRUCTIONS Last administered on 09/24/19at 15:15; Start 08/15/19 at 13:45; Stop 10/19/19 at 16:00; Status DC Sodium Chloride 1,000 ml @ 25 mls/hr Q24H IV Last administered on 09/13/19at 13:37; Start 08/15/19 at 13:37; Stop 09/16/19 at 13:09; Status DC Naloxone HCl (Narcan) 0.4 mg PRN Q2MIN PRN IV SEE INSTRUCTIONS; Start 08/15/19 at 14:30; Status UNV Sodium Chloride 1,000 ml @ 25 mls/hr Q24H IV ; Start 08/15/19 at 14:30; Status UNV Hydromorphone HCl 30 ml @ 0 mls/hr CONT PRN PRN IV PER PROTOCOL Last administer ed on 08/20/19at 16:08; Start 08/15/19 at 14:30; Stop 08/22/19 at 08:55; Status DC Potassium Acetate 55 meq/Magnesium Sulfate 20 meq/ Calcium Gluconate 10 meq/ Multivitamins 10 ml/Chromium/ Copper/Manganese/ Seleni/Zn 0.5 ml/ Insulin Human Regular 35 unit/ Total Parenteral Nutrition/Amino Acids/Dextrose/ Fat Emulsion Intravenous 1,920 ml @ 80 mls/hr TPN CONT IV Last administered on 08/15/19at 22:01; Start 08/15/19 at 22:00; Stop 08/16/19 at 21:59; Status DC Bumetanide (Bumex) 2 mg [id number] IV Last administered on 08/19/19at 13:50; Start 08/16/19 at 14:00; Stop 08/20/19 at 14:10; Status DC Meropenem 1 gm/ Sodium Chloride 100 ml @ 200 mls/hr Q8HRS IV Last administered on 09/09/19at 05:53; Start 08/16/19 at 14:00; Stop 09/09/19 at 09:31; Status DC Potassium Acetate 55 meq/Magnesium Sulfate 20 meq/ Calcium Gluconate 10 meq/ Multivitamins 10 ml/Chromium/ Copper/Manganese/ Seleni/Zn 0.5 ml/ Insulin Human Regular 35 unit/ Total Parenteral Nutrition/Amino Acids/Dextrose/ Fat Emulsion Intravenous 1,920 ml @ 80 mls/hr TPN CONT IV Last administered on 08/16/19at 22:02; Start 08/16/19 at 22:00; Stop 08/17/19 at 21:59; Status DC Hydromorphone HCl (Dilaudid Standard OUTSIDE SALESPERSON) 12 mg STK-MED ONCE IV ; Start 08/15/19 at 14:35; Stop 08/16/19 at 13:53; Status DC Artificial Tears (Artificial Tears) 1 drop PRN Q15MIN PRN OU DRY EYE Last administered on 10/11/19at 21:17; Start 08/17/19 at 05:30 Hydromorphone HCl (Dilaudid Standard OUTSIDE SALESPERSON) 12 mg STK-MED ONCE IV ; Start 08/16/19 at 12:05; Stop 08/17/19 at 09:15; Status DC Potassium Acetate 65 meq/Magnesium Sulfate 20 meq/ Calcium Gluconate 10 meq/ Multivitamins 10 ml/Chromium/ Copper/Manganese/ Seleni/Zn 0.5 ml/ Insulin Human Regular 30 unit/ Total Parenteral Nutrition/Amino Acids/Dextrose/ Fat Emulsion Intravenous 1,920 ml @ 80 mls/hr TPN CONT IV Last administered on 08/17/19at 22:22; Start 08/17/19 at 22:00; Stop 08/18/19 at 21:59; Status DC Cyclobenzaprine HCl (Flexeril) 10 mg PRN Q6HRS PRN PO MUSCLE SPASMS; Start 08/18/19 at 10:45 Potassium Acetate 55 meq/Magnesium Sulfate 20 meq/ Calcium Gluconate 10 meq/ Multivitamins 10 ml/Chromium/ Copper/Manganese/ Seleni/Zn 0.5 ml/ Insulin Human Regular 30 unit/ Total Parenteral Nutrition/Amino Acids/Dextrose/ Fat Emulsion Intravenous 1,920 ml @ 80 mls/hr TPN CONT IV Last administered on 08/19/19at 01:00; Start 08/18/19 at 22:00; Stop 08/19/19 at 21:59; Status DC Magnesium Sulfate 50 ml @ 25 mls/hr 1X ONCE IV Last administered on 08/18/19at 17:18; Start 08/18/19 at 12:45; Stop 08/18/19 at 14:44; Status DC Potassium Chloride/Water 100 ml @ 100 mls/hr 1X ONCE IV Last administered on 08/19/19at 11:27; Start 08/19/19 at 12:00; Stop 08/19/19 at 12:59; Status DC Hydromorphone HCl (Dilaudid Standard OUTSIDE SALESPERSON) 12 mg STK-MED ONCE IV ; Start 08/17/19 at 10:50; Stop 08/19/19 at 11:02; Status DC Hydromorphone HCl (Dilaudid Standard OUTSIDE [employer]ERSON) 12 mg STK-MED ONCE IV ; Start 08/18/19 at 13:47; Stop 08/19/19 at 11:03; Status DC Potassium Acetate 30 meq/Magnesium Sulfate 20 meq/ Calcium Gluconate 10 meq/ Multivitamins 10 ml/Chromium/ Copper/Manganese/ Seleni/Zn 0.5 ml/ Insulin Human Regular 30 unit/ Potassium Chloride 30 meq/ Total Parenteral Nutrition/Amino Acids/Dextrose/ Fat Emulsion Intravenous 1,920 ml @ 80 mls/hr TPN CONT IV Last administered on 08/19/19at 22:34; Start 08/19/19 at 22:00; Stop 08/20/19 at 21:59; Status DC Potassium Chloride/Water 100 ml @ 100 mls/hr Q1H IV Last administered on 08/20/19at 13:05; Start 08/20/19 at 07:00; Stop 08/20/19 at 10:59; Status DC Magnesium Sulfate 50 ml @ 25 mls/hr 1X ONCE IV Last administered on 08/20/19at 10:34; Start 08/20/19 at 10:30; Stop 08/20/19 at 12:29; Status DC Potassium Chloride 75 meq/ Magnesium Sulfate 20 meq/Calcium Gluconate 10 meq/ Multivitamins 10 ml/Chromium/ Copper/Manganese/ Seleni/Zn 0.5 ml/ Insulin Human Regular 30 unit/ Total Parenteral Nutrition/Amino Acids/Dextrose/ Fat Emulsion Intravenous 1,920 ml @ 80 mls/hr TPN CONT IV Last administered on 08/20/19at 21:51; Start 08/20/19 at 22:00; Stop 08/21/19 at 22:00; Status DC Potassium Chloride 75 meq/ Magnesium Sulfate 20 meq/Calcium Gluconate 10 meq/ Multivitamins 10 ml/Chromium/ Copper/Manganese/ Seleni/Zn 0.5 ml/ Insulin Human Regular 25 unit/ Total Parenteral Nutrition/Amino Acids/Dextrose/ Fat Emulsion Intravenous 1,920 ml @ 80 mls/hr TPN CONT IV Last administered on 08/21/19at 22:04; Start 08/21/19 at 22:00; Stop 08/22/19 at 21:59; Status DC Hydromorphone HCl (Dilaudid) 0.4 mg PRN Q4HRS PRN IVP PAIN Last administered on 08/22/19at 10:57; Start 08/22/19 at 09:00; Stop 08/22/19 at 18:59; Status DC Micafungin Sodium 100 mg/Dextrose 100 ml @ 100 mls/hr Q24H IV Last administered on 09/13/19at 12:17; Start 08/22/19 at 11:00; Stop 09/14/19 at 09:59; Status DC Daptomycin 485 mg/ Sodium Chloride 50 ml @ 100 mls/hr Q24H IV Last administered on 08/29/19at 13:10; Start 08/22/19 at 11:00; Stop 08/30/19 at 07:44; Status DC Potassium Chloride 75 meq/ Magnesium Sulfate 15 meq/Calcium Gluconate 8 meq/ Multivitamins 10 ml/Chromium/ Copper/Manganese/ Seleni/Zn 0.5 ml/ Insulin Human Regular 25 unit/ Total Parenteral Nutrition/Amino Acids/Dextrose/ Fat Emulsion Intravenous 1,920 ml @ 80 mls/hr TPN CONT IV Last administered on 08/22/19at 23:08; Start 08/22/19 at 22:00; Stop 08/23/19 at 21:59; Status DC Haloperidol Lactate (Haldol Inj) 3 mg 1X ONCE IVP Last administered on 08/22/19at 14:37; Start 08/22/19 at 14:30; Stop 08/22/19 at 14:31; Status DC Hydromorphone HCl (Dilaudid) 1 mg PRN Q4HRS PRN IVP PAIN Last administered on 09/05/19at 06:25; Start 08/22/19 at 19:00; Stop 09/05/19 at 17:10; Status DC Potassium Chloride 75 meq/ Magnesium Sulfate 15 meq/Calcium Gluconate 8 meq/ Multivitamins 10 ml/Chromium/ Copper/Manganese/ Seleni/Zn 0.5 ml/ Insulin Human Regular 20 unit/ Total Parenteral Nutrition/Amino Acids/Dextrose/ Fat Emulsion Intravenous 1,920 ml @ 80 mls/hr TPN CONT IV Last administered on 08/23/19at 22:10; Start 08/23/19 at 22:00; Stop 08/24/19 at 21:59; Status DC Lidocaine HCl (Buffered Lidocaine 1%) 3 ml STK-MED ONCE .ROUTE ; Start 08/24/19 at 11:31; Stop 08/24/19 at 11:31; Status DC Lidocaine HCl (Buffered Lidocaine 1%) 3 ml STK-MED ONCE .ROUTE ; Start 08/24/19 at 12:28; Stop 08/24/19 at 12:29; Status DC Lidocaine HCl (Buffered Lidocaine 1%) 6 ml 1X ONCE INJ Last administered on 08/24/19at 12:53; Start 08/24/19 at 12:45; Stop 08/24/19 at 12:46; Status DC Potassium Chloride 75 meq/ Magnesium Sulfate 15 meq/Calcium Gluconate 8 meq/ Mu ltivitamins 10 ml/Chromium/ Copper/Manganese/ Seleni/Zn 0.5 ml/ Insulin Human Regular 20 unit/ Total Parenteral Nutrition/Amino Acids/Dextrose/ Fat Emulsion Intravenous 1,920 ml @ 80 mls/hr TPN CONT IV Last administered on 08/24/19at 22:00; Start 08/24/19 at 22:00; Stop 08/25/19 at 21:59; Status DC Potassium Chloride 75 meq/ Magnesium Sulfate 15 meq/Calcium Gluconate 8 meq/ Multivitamins 10 ml/Chromium/ Copper/Manganese/ Seleni/Zn 0.5 ml/ Insulin Human Regular 15 unit/ Total Parenteral Nutrition/Amino Acids/Dextrose/ Fat Emulsion Intravenous 1,920 ml @ 80 mls/hr TPN CONT IV Last administered on 08/25/19at 22:28; Start 08/25/19 at 22:00; Stop 08/26/19 at 21:59; Status DC Vecuronium [place] (Norcuron Bolus) 6 mg PRN Q6HRS PRN IV VENT ASYNCHRONY; Start 08/25/19 at 19:15; Stop 08/25/19 at 19:35; Status DC Bumetanide (Bumex) 2 mg 1X ONCE IV Last administered on 08/25/19at 22:09; Start 08/25/19 at 19:45; Stop 08/25/19 at 19:46; Status DC Lidocaine HCl (Buffered Lidocaine 1%) 3 ml STK-MED ONCE .ROUTE ; Start 08/26/19 at 07:59; Stop 08/26/19 at 07:59; Status DC Midazolam HCl (Versed) 5 mg STK-MED ONCE .ROUTE ; Start 08/26/19 at 08:36; Stop 08/26/19 at 08:36; Status DC Fentanyl Citrate (Fentanyl 5ml Vial) 250 mcg STK-MED ONCE .ROUTE ; Start 08/26/19 at 08:36; Stop 08/26/19 at 08:37; Status DC Lidocaine HCl (Buffered Lidocaine 1%) 3 ml 1X ONCE IJ Last administered on 08/26/19at 09:30; Start 08/26/19 at 09:15; Stop 08/26/19 at 09:16; Status DC Midazolam HCl (Versed) 5 mg 1X ONCE IV Last administered on 08/26/19at 09:30; Start 08/26/19 at 09:15; Stop 08/26/19 at 09:16; Status DC Fentanyl Citrate (Fentanyl 5ml Vial) 250 mcg 1X ONCE IV Last administered on 08/26/19at 09:30; Start 08/26/19 at 09:15; Stop 08/26/19 at 09:16; Status DC Bumetanide (Bumex) 2 mg DAILY IV Last administered on 09/05/19at 08:07; Start 08/26/19 at 10:00; Stop 09/05/19 at 17:15; Status DC Potassium Chloride 75 meq/ Magnesium Sulfate 15 meq/ Multivitamins 10 ml/Chromium/ Copper/Manganese/ Seleni/Zn 0.5 ml/ Insulin Human Regular 15 unit/ Total Parenteral Nutrition/Amino Acids/Dextrose/ Fat Emulsion Intravenous 1,920 ml @ 80 mls/hr TPN CONT IV Last administered on 08/26/19at 21:59; Start 08/26/19 at 22:00; Stop 08/27/19 at 21:59; Status DC Metoclopramide HCl (Reglan Vial) 10 mg PRN Q3HRS PRN IVP NAUSEA/VOMITING-3rd choice Last administered on 09/01/19at 04:25; Start 08/27/19 at 16:45 Potassium Chloride 75 meq/ Magnesium Sulfate 15 meq/ Multivitamins 10 ml/Chromium/ Copper/Manganese/ Seleni/Zn 0.5 ml/ Insulin Human Regular 15 unit/ Total Parenteral Nutrition/Amino Acids/Dextrose/ Fat Emulsion Intravenous 1,920 ml @ 80 mls/hr TPN CONT IV Last administered on 08/27/19at 22:41; Start 08/27/19 at 22:00; Stop 08/28/19 at 21:59; Status DC Magnesium Sulfate 50 ml @ 25 mls/hr 1X ONCE IV Last administered on 08/28/19at 10:44; Start 08/28/19 at 09:00; Stop 08/28/19 at 10:59; Status DC Potassium Chloride/Water 100 ml @ 100 mls/hr 1X ONCE IV Last administered on 08/28/19at 09:37; Start 08/28/19 at 09:00; Stop 08/28/19 at 09:59; Status DC Duloxetine HCl (Cymbalta) 30 mg DAILY PO Last administered on 08/29/19at 09:48; Start 08/28/19 at 14:00; Stop 08/31/19 at 10:25; Status DC Potassium Chloride 80 meq/ Magnesium Sulfate 20 meq/ Multivitamins 10 ml/Chromium/ Copper/Manganese/ Seleni/Zn 0.5 ml/ Insulin Human Regular 15 unit/ Total Parenteral Nutrition/Amino Acids/Dextrose/ Fat Emulsion Intravenous 1,920 ml @ 80 mls/hr TPN CONT IV Last administered on 08/28/19at 21:42; Start 08/28/19 at 22:00; Stop 08/29/19 at 21:59; Status DC Potassium Chloride 80 meq/ Magnesium Sulfate 20 meq/ Multivitamins 10 ml/Chromium/ Copper/Manganese/ Seleni/Zn 0.5 ml/ Insulin Human Regular 15 unit/ Total Parenteral Nutrition/Amino Acids/Dextrose/ Fat Emulsion Intravenous 1,920 ml @ 80 mls/hr TPN CONT IV Last administered on 08/29/19at 22:20; Start 08/28 at 22:00; Stop 08/30/19 at 21:59; Status DC Lidocaine HCl (Buffered Lidocaine 1%) 3 ml STK-MED ONCE .ROUTE ; Start 08/30/19 at 09:54; Stop 08/30/19 at 09:55; Status DC Hydromorphone HCl (Dilaudid Standard OUTSIDE SALESPERSON) 12 mg STK-MED ONCE IV ; Start 08/19/19 at 15:50; Stop 08/30/19 at 11:24; Status DC Potassium Chloride 80 meq/ Magnesium Sulfate 20 meq/ Multivitamins 10 ml/Chromium/ Copper/Manganese/ Seleni/Zn 0.5 ml/ Insulin Human Regular 15 unit/ Total Parenteral Nutrition/Amino Acids/Dextrose/ Fat Emulsion Intravenous 1,920 ml @ 80 mls/hr TPN CONT IV Last administered on 08/30/19at 21:40; Start 08/30/19 at 22:00; Stop 08/31/19 at 21:59; Status DC Lidocaine HCl (Buffered Lidocaine 1%) 6 ml 1X ONCE INJ Last administered on 08/30/19at 14:15; Start 08/30/19 at 14:15; Stop 08/30/19 at 14:16; Status DC Potassium Chloride 80 meq/ Magnesium Sulfate 20 meq/ Multivitamins 10 ml/Chromium/ Copper/Manganese/ Seleni/Zn 1 ml/ Insulin Human Regular 15 unit/ Total Parenteral Nutrition/Amino Acids/Dextrose/ Fat Emulsion Intravenous 1,920 ml @ 80 mls/hr TPN CONT IV Last administered on 08/31/19at 22:04; Start 08/31/19 at 22:00; Stop 09/01/19 at 21:59; Status DC Potassium Chloride/Water 100 ml @ 100 mls/hr 1X ONCE IV Last administered on 09/01/19at 11:34; Start 09/01/19 at 11:00; Stop 09/01/19 at 11:59; Status DC Potassium Chloride 90 meq/ Magnesium Sulfate 20 meq/ Multivitamins 10 ml/Chromium/ Copper/Manganese/ Seleni/Zn 1 ml/ Insulin Human Regular 15 unit/ Total Parenteral Nutrition/Amino Acids/Dextrose/ Fat Emulsion Intravenous 1,920 ml @ 80 mls/hr TPN CONT IV Last administered on 09/01/19at 22:57; Start 09/01/19 at 22:00; Stop 09/02/19 at 21:59; Status DC Potassium Chloride 90 meq/ Magnesium Sulfate 20 meq/ Multivitamins 10 ml/Chromium/ Copper/Manganese/ Seleni/Zn 1 ml/ Insulin Human Regular 15 unit/ Total Parenteral Nutrition/Amino Acids/Dextrose/ Fat Emulsion Intravenous 1,920 ml @ 80 mls/hr TPN CONT IV Last administered on 09/02/19at 22:48; Start 09/02/19 at 22:00; Stop 09/03/19 at 21:59; Status DC Potassium Chloride 90 meq/ Magnesium Sulfate 20 meq/ Multivitamins 10 ml/Chromium/ Copper/Manganese/ Seleni/Zn 1 ml/ Insulin Human Regular 15 unit/ Total Parenteral Nutrition/Amino Acids/Dextrose/ Fat Emulsion Intravenous 1,890 ml @ 78.75 mls/ hr TPN CONT IV Last administered on 09/03/19at 22:15; Start 09/03/19 at 22:00; Stop 09/04/19 at 21:59; Status DC Linezolid/Dextrose 300 ml @ 300 mls/hr Q12HR IV Last administered on 09/06/19at 21:08; Start 09/04/19 at 09:00; Stop 09/07/19 at 08:11; Status DC Daptomycin 450 mg/ Sodium Chloride 50 ml @ 100 mls/hr Q24H IV Last administered on 09/07/19at 09:25; Start 09/04/19 at 09:00; Stop 09/08/19 at 08:30; Status DC Potassium Chloride 90 meq/ Magnesium Sulfate 20 meq/ Multivitamins 10 ml/Chromium/ Copper/Manganese/ Seleni/Zn 1 ml/ Insulin Human Regular 15 unit/ Total Parenteral Nutrition/Amino Acids/Dextrose/ Fat Emulsion Intravenous 1,890 ml @ 78.75 mls/ hr TPN CONT IV Last administered on 09/04/19at 21:34; Start 09/04/19 at 22:00; Stop 09/05/19 at 21:59; Status DC Lorazepam (Ativan Inj) 2 mg STK-MED ONCE .ROUTE ; Start 09/04/19 at 14:58; Stop 09/04/19 at 14:58; Status DC Metoprolol Tartrate (Lopressor Vial) 5 mg 1X ONCE IVP Last administered on 09/04/19at 15:31; Start 09/04/19 at 15:15; Stop 09/04/19 at 15:16; Status DC Lorazepam (Ativan Inj) 2 mg 1X ONCE IVP Last administered on 09/04/19at 15:30; Start 09/04/19 at 15:15; Stop 09/04/19 at 15:16; Status DC Enoxaparin Sodium (Lovenox 40mg Syringe) 40 mg Q24H SQ Last administered on 09/23/19at 17:44; Start 09/04/19 at 17:00; Stop 09/25/19 at 06:50; Status DC Lorazepam (Ativan Inj) 1 mg PRN Q4HRS PRN IVP ANXIETY / AGITATION MILD-MOD Last administered on 09/18/19at 15:55; Start 09/04/19 at 19:15; Stop 09/20/19 at 11:45; Status DC Lorazepam (Ativan Inj) 2 mg PRN Q4HRS PRN IVP ANXIETY / AGITATION SEVERE Last administered on 09/19/19at 07:55; Start 09/04/19 at 19:15; Stop 09/20/19 at 11:45; Status DC Fentanyl Citrate (Fentanyl 2ml Vial) 50 mcg PRN Q4HRS PRN IVP SEVERE PAIN Last administered on 10/01/19at 05:15; Start 09/05/19 at 13:15; Stop 10/02/19 at 09:29; Status DC Fentanyl Citrate (Fentanyl 2ml Vial) 25 mcg PRN Q4HRS PRN IVP MODERATE PAIN Last administered on 10/01/19at 00:27; Start 09/05/19 at 13:15; Stop 10/02/19 at 09:30; Status DC Potassium Chloride 90 meq/ Magnesium Sulfate 20 meq/ Multivitamins 10 ml/Chromium/ Copper/Manganese/ Seleni/Zn 1 ml/ Insulin Human Regular 15 unit/ Total Parenteral Nutrition/Amino Acids/Dextrose/ Fat Emulsion Intravenous 1,890 ml @ 78.75 mls/ hr TPN CONT IV Last administered on 09/05/19at 22:18; Start 09/05/19 at 22:00; Stop 09/06/19 at 21:59; Status DC Furosemide (Lasix) 40 mg 1X ONCE IVP Last administered on 09/05/19at 21:51; Start 09/05/19 at 21:45; Stop 09/05/19 at 21:48; Status DC Albumin Human 100 ml @ 100 mls/hr 1X PRN PRN IV SEE COMMENTS; Start 09/06/19 at 01:30 Furosemide (Lasix) 40 mg [id number] IVP Last administered on 09/21/19at 08:04; Start 09/06/19 at 14:00; Stop 09/21/19 at 13:07; Status DC Potassium Chloride 90 meq/ Magnesium Sulfate 20 meq/ Multivitamins 10 ml/Chromium/ Copper/Manganese/ Seleni/Zn 1 ml/ Insulin Human Regular 15 unit/ Total Parenteral Nutrition/Amino Acids/Dextrose/ Fat Emulsion Intravenous 1,800 ml @ 75 mls/hr TPN CONT IV Last administered on 09/06/19at 22:31; Start 09/06/19 at 22:00; Stop 09/07/19 at 21:59; Status DC Potassium Chloride 90 meq/ Magnesium Sulfate 20 meq/ Multivitamins 10 ml/Chromium/ Copper/Manganese/ Seleni/Zn 1 ml/ Insulin Human Regular 15 unit/ Total Parenteral Nutrition/Amino Acids/Dextrose/ Fat Emulsion Intravenous 1,800 ml @ 75 mls/hr TPN CONT IV Last administered on 09/07/19at 22:28; Start 09/07/19 at 22:00; Stop 09/08/19 at 21:59; Status DC Potassium Chloride 110 meq/ Magnesium Sulfate 20 meq/ Multivitamins 10 ml/Chromium/ Copper/Manganese/ Seleni/Zn 1 ml/ Insulin Human Regular 15 unit/ Total Parenteral Nutrition/Amino Acids/Dextrose/ Fat Emulsion Intravenous 1,800 ml @ 75 mls/hr TPN CONT IV Last administered on 09/08/19at 22:01; Start 09/08/19 at 22:00; Stop 09/09/19 at 21:59; Status DC Saliva Substitute (Biotene Moisturizing Mouth) 2 spray PRN Q15MIN PRN PO DRY MOUTH; Start 09/08/19 at 11:00 Potassium Chloride 110 meq/ Magnesium Sulfate 20 meq/ Multivitamins 10 ml/Chromium/ Copper/Manganese/ Seleni/Zn 1 ml/ Insulin Human Regular 15 unit/ Total Parenteral Nutrition/Amino Acids/Dextrose/ Fat Emulsion Intravenous 1,800 ml @ 75 mls/hr TPN CONT IV Last administered on 09/09/19at 22:21; Start 09/09/19 at 22:00; Stop 09/10/19 at 21:59; Status DC Potassium Chloride 110 meq/ Magnesium Sulfate 20 meq/ Multivitamins 10 ml/Chromium/ Copper/Manganese/ Seleni/Zn 1 ml/ Insulin Human Regular 15 unit/ Total Parenteral Nutrition/Amino Acids/Dextrose/ Fat Emulsion Intravenous 1,800 ml @ 75 mls/hr TPN CONT IV Last administered on 09/10/19at 22:04; Start 09/10/19 at 22:00; Stop 09/11/19 at 21:59; Status DC Potassium Chloride 110 meq/ Magnesium Sulfate 20 meq/ Multivitamins 10 ml/Chromium/ Copper/Manganese/ Seleni/Zn 1 ml/ Insulin Human Regular 15 unit/ Total Parenteral Nutrition/Amino Acids/Dextrose/ Fat Emulsion Intravenous 1,800 ml @ 75 mls/hr TPN CONT IV Last administered on 09/11/19at 22:48; Start 09/11/19 at 22:00; Stop 09/12/19 at 21:59; Status DC Potassium Chloride 70 meq/ Magnesium Sulfate 20 meq/ Multivitamins 10 ml/Chromium/ Copper/Manganese/ Seleni/Zn 1 ml/ Insulin Human Regular 15 unit/ Total Parenteral Nutrition/Amino Acids/Dextrose/ Fat Emulsion Intravenous 1,800 ml @ 75 mls/hr TPN CONT IV Last administered on 09/12/19at 21:39; Start 09/12/19 at 22:00; Stop 09/13/19 at 21:59; Status DC Meropenem 500 mg/ Sodium Chloride 50 ml @ 100 mls/hr Q6HRS IV Last administered on 09/14/19at 06:02; Start 09/12/19 at 18:00; Stop 09/14/19 at 09:59; Status DC Barium Sulfate (Varibar Thin Liquid [place]) 148 gm 1X ONCE PO ; Start 09/13/19 at 11:45; Stop 09/13/19 at 11:49; Status DC Potassium Chloride 70 meq/ Magnesium Sulfate 20 meq/ Multivitamins 10 ml/Chromium/ Copper/Manganese/ Seleni/Zn 1 ml/ Insulin Human Regular 15 unit/ Total Parenteral Nutrition/Amino Acids/Dextrose/ Fat Emulsion Intravenous 1,800 ml @ 75 mls/hr TPN CONT IV Last administered on 09/13/19at 22:27; Start 09/13/19 at 22:00; Stop 09/14/19 at 21:59; Status DC Piperacillin Sod/ Tazobactam Sod 3.375 gm/Sodium Chloride 50 ml @ 100 mls/hr Q6HRS IV Last administered on 09/22/19at 06:10; Start 09/14/19 at 12:00; Stop 09/22/19 at 07:26; Status DC Potassium Chloride 70 meq/ Magnesium Sulfate 20 meq/ Multivitamins 10 ml/Chromium/ Copper/Manganese/ Seleni/Zn 1 ml/ Insulin Human Regular 15 unit/ Total Parenteral Nutrition/Amino Acids/Dextrose/ Fat Emulsion Intravenous 1,800 ml @ 75 mls/hr TPN CONT IV Last administered on 09/14/19at 22:03; Start 09/14/19 at 22:00; Stop 09/15/19 at 21:59; Status DC Potassium Chloride 70 meq/ Magnesium Sulfate 20 meq/ Multivitamins 10 ml/Chromium/ Copper/Manganese/ Seleni/Zn 1 ml/ Insulin Human Regular 15 unit/ Total Parenteral Nutrition/Amino Acids/Dextrose/ Fat Emulsion Intravenous 1,800 ml @ 75 mls/hr TPN CONT IV Last administered on 09/15/19at 22:33; Start 09/15/19 at 22:00; Stop 09/16/19 at 21:59; Status DC Potassium Chloride 70 meq/ Magnesium Sulfate 20 meq/ Multivitamins 10 ml/Chromium/ Copper/Manganese/ Seleni/Zn 1 ml/ Insulin Human Regular 15 unit/ Total Parenteral Nutrition/Amino Acids/Dextrose/ Fat Emulsion Intravenous 1,800 ml @ 75 mls/hr TPN CONT IV Last administered on 09/16/19at 23:13; Start 09/16/19 at 22:00; Stop 09/17/19 at 21:59; Status DC Potassium Chloride 80 meq/ Magnesium Sulfate 20 meq/ Multivitamins 10 ml/Chromium/ Copper/Manganese/ Seleni/Zn 1 ml/ Insulin Human Regular 15 unit/ Total Parenteral Nutrition/Amino Acids/Dextrose/ Fat Emulsion Intravenous 1,800 ml @ 75 mls/hr TPN CONT IV Last administered on 09/17/19at 22:30; Start 09/17/19 at 22:00; Stop 09/18/19 at 21:59; Status DC Potassium Chloride 80 meq/ Magnesium Sulfate 20 meq/ Multivitamins 10 ml/Chromium/ Copper/Manganese/ Seleni/Zn 1 ml/ Insulin Human Regular 15 unit/ Total Parenteral Nutrition/Amino Acids/Dextrose/ Fat Emulsion Intravenous 1,800 ml @ 75 mls/hr TPN CONT IV Last administered on 09/18/19at 21:54; Start 09/18/19 at 22:00; Stop 09/19/19 at 21:59; Status DC Potassium Chloride/Water 100 ml @ 100 mls/hr 1X ONCE IV Last administered on 09/19/19at 10:15; Start 09/19/19 at 10:00; Stop 09/19/19 at 10:59; Status DC Potassium Chloride 90 meq/ Magnesium Sulfate 20 meq/ Multivitamins 10 ml/Chromium/ Copper/Manganese/ Seleni/Zn 1 ml/ Insulin Human Regular 20 unit/ Total Parenteral Nutrition/Amino Acids/Dextrose/ Fat Emulsion Intravenous 1,800 ml @ 75 mls/hr TPN CONT IV Last administered on 09/19/19at 22:28; Start 09/19/19 at 22:00; Stop 09/20/19 at 21:59; Status DC Potassium Chloride 90 meq/ Magnesium Sulfate 20 meq/ Multivitamins 10 ml/Chromium/ Copper/Manganese/ Seleni/Zn 1 ml/ Insulin Human Regular 20 unit/ Total Parenteral Nutrition/Amino Acids/Dextrose/ Fat Emulsion Intravenous 1,800 ml @ 75 mls/hr TPN CONT IV Last administered on 09/20/19at 22:08; Start 09/20/19 at 22:00; Stop 09/21/19 at 21:59; Status DC Lorazepam (Ativan Inj) 0.25 mg PRN Q4HRS PRN IVP ANXIETY / AGITATION Last administered on 10/15/19at 13:37; Start 09/21/19 at 07:30 Potassium Chloride 90 meq/ Magnesium Sulfate 20 meq/ Multivitamins 10 ml/Chromium/ Copper/Manganese/ Seleni/Zn 1 ml/ Insulin Human Regular 20 unit/ Total Parenteral Nutrition/Amino Acids/Dextrose/ Fat Emulsion Intravenous 1,800 ml @ 75 mls/hr TPN CONT IV Last administered on 09/21/19at 23:13; Start 09/21/19 at 22:00; Stop 09/22/19 at 21:59; Status DC Furosemide (Lasix) 40 mg DAILY IVP Last administered on 09/23/19at 11:14; Start 09/21/19 at 13:30; Stop 09/25/19 at 09:12; Status DC Fluoxetine HCl (PROzac) 20 mg QHS PEG Last administered on 10/21/19at 20:49; Start 09/22/19 at 21:00 Fentanyl (Duragesic 50mcg/ Hr Patch) 1 patch Q72H TD Last administered on 09/22/19at 21:22; Start 09/22/19 at 21:00; Stop 10/01/19 at 12:00; Status DC Potassium Chloride 40 meq/ Potassium Acetate 60 meq/Magnesium Sulfate 10 meq/ Multivitamins 10 ml/Chromium/ Copper/Manganese/ Seleni/Zn 1 ml/ Insulin Human Regular 20 unit/ Total Parenteral Nutrition/Amino Acids/Dextrose/ Fat Emulsion Intravenous 1,800 ml @ 75 mls/hr TPN CONT IV Last administered on 09/23/19at 00:03; Start 09/22/19 at 22:00; Stop 09/23/19 at 21:59; Status DC Potassium Acetate 80 meq/Magnesium Sulfate 5 meq/ Multivitamins 10 ml/Chromium/ Copper/Manganese/ Seleni/Zn 1 ml/ Insulin Human Regular 20 unit/ Total Parenteral Nutrition/Amino Acids/Dextrose/ Fat Emulsion Intravenous 1,920 ml @ 80 mls/hr TPN CONT IV Last administered on 09/23/19at 21:59; Start 09/23/19 at 22:00; Stop 09/24/19 at 21:59; Status DC Potassium Acetate 60 meq/Magnesium Sulfate 5 meq/ Multivitamins 10 ml/Chromium/ Copper/Manganese/ Seleni/Zn 1 ml/ Insulin Human Regular 30 unit/ Total Parenteral Nutrition/Amino Acids/Dextrose/ Fat Emulsion Intravenous 1,920 ml @ 80 mls/hr TPN CONT IV Last administered on 09/24/19at 21:54; Start 09/24/19 at 22:00; Stop 09/25/19 at 21:59; Status DC Norepinephrine Bitartrate 8 mg/ Dextrose 258 ml @ 13.332 mls/ hr CONT PRN IV PER PROTOCOL Last administered on 10/20/19at 09:09; Start 09/25/19 at 06:30 Albumin Human 500 ml @ 125 mls/hr 1X ONCE IV Last administered on 09/25/19at 08:10; Start 09/25/19 at 08:15; Stop 09/25/19 at 12:14; Status DC Potassium Acetate 40 meq/Magnesium Sulfate 5 meq/ Multivitamins 10 ml/Chromium/ Copper/Manganese/ Seleni/Zn 1 ml/ Insulin Human Regular 30 unit/ Total Parenteral Nutrition/Amino Acids/Dextrose/ Fat Emulsion Intravenous 1,920 ml @ 80 mls/hr TPN CONT IV Last administered on 09/25/19at 22:23; Start 09/25/19 at 22:00; Stop 09/26/19 at 21:59; Status DC Meropenem 1 gm/ Sodium Chloride 100 ml @ 200 mls/hr Q8HRS IV ; Start 09/25/19 at 14:00; Status Cancel Meropenem 1 gm/ Sodium Chloride 100 ml @ 200 mls/hr Q8HRS IV Last administered on 09/25/19at 11:04; Start 09/25/19 at 10:00; Stop 09/25/19 at 13:00; Status DC Meropenem 1 gm/ Sodium Chloride 100 ml @ 200 mls/hr Q12HR IV Last administered on 10/13/19at 08:27; Start 09/25/19 at 21:00; Stop 10/13/19 at 08:56; Status DC Sodium Chloride 1,000 ml @ 1,000 mls/hr 1X ONCE IV Last administered on 09/25/19at 11:06; Start 09/25/19 at 10:45; Stop 09/25/19 at 11:44; Status DC Micafungin Sodium 100 mg/Dextrose 100 ml @ 100 mls/hr Q24H IV Last administe red on 10/12/19at 12:34; Start 09/25/19 at 11:00; Stop 10/13/19 at 08:56; Status DC Daptomycin 410 mg/ Sodium Chloride 50 ml @ 100 mls/hr Q24H IV Last administered on 09/27/19at 13:33; Start 09/25/19 at 14:00; Stop 09/28/19 at 08:30; Status DC Midazolam HCl (Versed) 2 mg STK-MED ONCE .ROUTE ; Start 09/25/19 at 14:47; Stop 09/25/19 at 14:48; Status DC Fentanyl Citrate (Fentanyl 2ml Vial) 100 mcg STK-MED ONCE .ROUTE ; Start 09/25/19 at 14:47; Stop 09/25/19 at 14:48; Status DC Flumazenil (Romazicon) 0.5 mg STK-MED ONCE IV ; Start 09/25/19 at 14:48; Stop 09/25/19 at 14:48; Status DC Naloxone HCl (Narcan) 0.4 mg STK-MED ONCE .ROUTE ; Start 09/25/19 at 14:48; Stop 09/25/19 at 14:48; Status DC Lidocaine HCl (Lidocaine 1% 20ml Vial) 20 ml STK-MED ONCE .ROUTE ; Start 09/25/19 at 14:48; Stop 09/25/19 at 14:48; Status DC Midazolam HCl (Versed) 2 mg 1X ONCE IV Last administered on 09/25/19at 15:28; S tart 09/25/19 at 15:00; Stop 09/25/19 at 15:01; Status DC Fentanyl Citrate (Fentanyl 2ml Vial) 100 mcg 1X ONCE IV Last administered on 09/25/19at 15:28; Start 09/25/19 at 15:00; Stop 09/25/19 at 15:01; Status DC Lidocaine HCl (Lidocaine 1% 20ml Vial) 20 ml 1X ONCE INJ Last administered on 09/25/19at 15:30; Start 09/25/19 at 15:00; Stop 09/25/19 at 15:01; Status DC Sodium Chloride 1,000 ml @ 100 mls/hr Q10H IV Last administered on 10/04/19at 07:30; Start 09/25/19 at 20:00; Stop 10/04/19 at 11:26; Status DC Sodium Bicarbonate (Sodium Bicarb Adult 8.4% Syr) 50 meq 1X ONCE IV Last administered on 09/25/19at 21:47; Start 09/25/19 at 22:00; Stop 09/25/19 at 22:01; Status DC Potassium Acetate 40 meq/Magnesium Sulfate 5 meq/ Multivitamins 10 ml/Chromium/ Copper/Manganese/ Seleni/Zn 1 ml/ Insulin Human Regular 30 unit/ Total Parenteral Nutrition/Amino Acids/Dextrose/ Fat Emulsion Intravenous 1,920 ml @ 80 mls/hr TPN CONT IV Last administered on 09/26/19at 22:28; Start 09/26/19 at 22:00; Stop 09/27/19 at 21:59; Status DC Sodium Chloride 500 ml @ 500 mls/hr 1X ONCE IV Last administered on 09/27/19at 06:39; Start 09/27/19 at 06:45; Stop 09/27/19 at 07:44; Status DC Potassium Acetate 40 meq/Magnesium Sulfate 5 meq/ Multivitamins 10 ml/Chromium/ Copper/Manganese/ Seleni/Zn 1 ml/ Insulin Human Regular 30 unit/ Total Parenteral Nutrition/Amino Acids/Dextrose/ Fat Emulsion Intravenous 1,920 ml @ 80 mls/hr TPN CONT IV Last administered on 09/27/19at 22:03; Start 09/27/19 at 22:00; Stop 09/28/19 at 21:59; Status DC Metoprolol Tartrate (Lopressor Vial) 5 mg PRN Q6HRS PRN IVP HYPERTENSION Last administered on 10/06/19at 10:14; Start 09/28/19 at 09:00 Potassium Acetate 40 meq/Magnesium Sulfate 5 meq/ Multivitamins 10 ml/Chromium/ Copper/Manganese/ Seleni/Zn 1 ml/ Insulin Human Regular 30 unit/ Total Parenteral Nutrition/Amino Acids/Dextrose/ Fat Emulsion Intravenous 1,920 ml @ 80 mls/hr TPN CONT IV Last administered on 09/28/19at 21:26; Start 09/28/19 at 22:00; Stop 09/29/19 at 21:59; Status DC Potassium Acetate 40 meq/Magnesium Sulfate 5 meq/ Multivitamins 10 ml/Chromium/ Copper/Manganese/ Seleni/Zn 1 ml/ Insulin Human Regular 30 unit/ Total Parenteral Nutrition/Amino Acids/Dextrose/ Fat Emulsion Intravenous 1,920 ml @ 80 mls/hr TPN CONT IV Last administered on 09/29/19at 23:23; Start 09/29/19 at 22:00; Stop 09/30/19 at 21:59; Status DC Potassium Acetate 40 meq/Magnesium Sulfate 5 meq/ Multivitamins 10 ml/Chromium/ Copper/Manganese/ Seleni/Zn 1 ml/ Insulin Human Regular 30 unit/ Total Parenteral Nutrition/Amino Acids/Dextrose/ Fat Emulsion Intravenous 1,920 ml @ 80 mls/hr TPN CONT IV Last administered on 09/30/19at 21:35; Start 09/30/19 at 22:00; Stop 10/01/19 at 21:59; Status DC Furosemide (Lasix) 20 mg 1X ONCE IVP Last administered on 10/01/19at 06:26; Start 10/01/19 at 06:15; Stop 10/01/19 at 06:16; Status DC Methylprednisolone Sodium Succinate (SOLU-Medrol 125MG VIAL) 125 mg 1X ONCE IV Last administered on 10/01/19at 06:26; Start 10/01/19 at 06:15; Stop 10/01/19 at 06:16; Status DC Albuterol/ Ipratropium (Duoneb) 3 ml Q4HRS NEB Last administered on 10/22/19at 07:42; Start 10/01/19 at 08:00 Fentanyl Citrate 30 ml @ 0 mls/hr CONT PRN IV SEE PROTOCOL Last administered on 10/22/19at 08:03; Start 10/01/19 at 06:00; Stop 10/22/19 at 12:42; Status DC Propofol 100 ml @ 0 mls/hr CONT PRN IV SEE PROTOCOL Last administered on 10/08/19at 23:50; Start 10/01/19 at 06:00 Fentanyl Citrate (Fentanyl 2ml Vial) 25 mcg PRN Q1HR PRN IV SEE COMMENTS; Start 10/01/19 at 06:00 Fentanyl Citrate (Fentanyl 2ml Vial) 50 mcg PRN Q1HR PRN IV SEE COMMENTS; Start 10/01/19 at 06:00 Chlorhexidine Gluconate (Peridex) 15 ml BID MM ; Start 10/01/19 at 09:00; Stop 10/01/19 at 07:58; Status DC Potassium Acetate 40 meq/Magnesium Sulfate 5 meq/ Multivitamins 10 ml/Chromium/ Copper/Manganese/ Seleni/Zn 1 ml/ Insulin Human Regular 30 unit/ Total Parenteral Nutrition/Amino Acids/Dextrose/ Fat Emulsion Intravenous 1,920 ml @ 80 mls/hr TPN CONT IV Last administered on 10/01/19at 21:19; Start 10/01/19 at 22:00; Stop 10/02/19 at 21:59; Status DC Acetylcysteine (Mucomyst 20% Resp Treatment) 600 mg BID NEB Last administered on 10/07/19at 09:33; Start 10/01/19 at 21:00; Stop 10/07/19 at 10:39; Status DC Magnesium Sulfate 100 ml @ 25 mls/hr 1X ONCE IV Last administered on 10/01/19at 15:48; Start 10/01/19 at 15:45; Stop 10/01/19 at 19:44; Status DC Potassium Acetate 40 meq/Magnesium Sulfate 5 meq/ Multivitamins 10 ml/Chromium/ Copper/Manganese/ Seleni/Zn 1 ml/ Insulin Human Regular 30 unit/ Total Parenteral Nutrition/Amino Acids/Dextrose/ Fat Emulsion Intravenous 1,920 ml @ 80 mls/hr TPN CONT IV Last administered on 10/02/19at 21:35; Start 10/02/19 at 22:00; Stop 10/03/19 at 21:59; Status DC Potassium Chloride/Water 100 ml @ 100 mls/hr Q1H IV Last administered on 10/03/19at 08:31; Start 10/03/19 at 07:00; Stop 10/03/19 at 08:59; Status DC Potassium Acetate 40 meq/Magnesium Sulfate 5 meq/ Multivitamins 10 ml/Chromium/ Copper/Manganese/ Seleni/Zn 1 ml/ Insulin Human Regular 30 unit/ Total Parenteral Nutrition/Amino Acids/Dextrose/ Fat Emulsion Intravenous 1,920 ml @ 80 mls/hr TPN CONT IV Last administered on 10/03/19at 21:54; Start 10/03/19 at 22:00; Stop 10/04/19 at 19:34; Status DC Lidocaine HCl (Buffered Lidocaine 1%) 3 ml STK-MED ONCE .ROUTE ; Start 10/03/19 at 12:14; Stop 10/03/19 at 12:14; Status DC Lidocaine HCl (Buffered Lidocaine 1%) 3 ml 1X ONCE IJ Last administered on 10/03/19at 13:11; Start 10/03/19 at 13:00; Stop 10/03/19 at 13:01; Status DC Magnesium Sulfate 50 ml @ 25 mls/hr 1X ONCE IV ; Start 10/04/19 at 08:15; Stop 10/04/19 at 10:14; Status DC Potassium Acetate 40 meq/Magnesium Sulfate 10 meq/ Multivitamins 10 ml/Chromium/ Copper/Manganese/ Seleni/Zn 1 ml/ Insulin Human Regular 20 unit/ Total Parenteral Nutrition/Amino Acids/Dextrose/ Fat Emulsion Intravenous 1,920 ml @ 80 mls/hr TPN CONT IV Last administered on 10/04/19at 21:32; Start 10/04/19 at 22:00; Stop 10/05/19 at 21:59; Status DC Potassium Chloride/Water 100 ml @ 100 mls/hr Q1H IV Last administered on 10/05/19at 09:12; Start 10/05/19 at 08:00; Stop 10/05/19 at 09:59; Status DC Alteplase, Recombinant (Cathflo For Central Catheter Clearance) 4 mg 1X ONCE INT CAT ; Start 10/05/19 at 09:15; Stop 10/05/19 at 09:16; Status UNV Alteplase, Recombinant (Cathflo For Central Catheter Clearance) 4 mg 1X ONCE INT CAT ; Start 10/05/19 at 09:15; Stop 10/05/19 at 09:16; Status UNV Alteplase, Recombinant (Cathflo For Central Catheter Clearance) 4 mg 1X ONCE INT CAT ; Start 10/05/19 at 09:15; Stop 10/05/19 at 09:16; Status UNV Alteplase, Recombinant 4 mg/ Sodium Chloride 20 ml @ 20 mls/hr 1X ONCE IV Last administered on 10/05/19at 10:10; Start 10/05/19 at 10:00; Stop 10/05/19 at 10:59; Status DC Alteplase, Recombinant 4 mg/ Sodium Chloride 20 ml @ 20 mls/hr 1X ONCE IV Last administered on 10/05/19at 10:09; Start 10/05/19 at 10:00; Stop 10/05/19 at 10:5 9; Status DC Alteplase, Recombinant 4 mg/ Sodium Chloride 20 ml @ 20 mls/hr 1X ONCE IV Last administered on 10/05/19at 10:09; Start 10/05/19 at 10:00; Stop 10/05/19 at 10:59; Status DC Potassium Acetate 60 meq/Magnesium Sulfate 10 meq/ Multivitamins 10 ml/Chromium/ Copper/Manganese/ Seleni/Zn 1 ml/ Insulin Human Regular 20 unit/ Total Parenteral Nutrition/Amino Acids/Dextrose/ Fat Emulsion Intravenous 1,920 ml @ 80 mls/hr TPN CONT IV Last administered on 10/05/19at 21:55; Start 10/05/19 at 22:00; Stop 10/06/19 at 21:59; Status DC Albumin Human 500 ml @ 125 mls/hr 1X ONCE IV Last administered on 10/06/19at 12:01; Start 10/06/19 at 11:15; Stop 10/06/19 at 15:14; Status DC Sodium Chloride 500 ml @ 500 mls/hr 1X ONCE IV Last administered on 10/06/19at 13:50; Start 10/06/19 at 11:15; Stop 10/06/19 at 12:14; Status DC Potassium Acetate 60 meq/Magnesium Sulfate 14 meq/ Multivitamins 10 ml/Chromium/ Copper/Manganese/ Seleni/Zn 1 ml/ Insulin Human Regular 20 unit/ Total Parenteral Nutrition/Amino Acids/Dextrose/ Fat Emulsion Intravenous 1,920 ml @ 80 mls/hr TPN CONT IV Last administered on 10/06/19at 22:26; Start 10/06/19 at 22:00; Stop 10/07/19 at 21:59; Status DC Ciprofloxacin/ Dextrose 200 ml @ 200 mls/hr Q12HR IV Last administered on 10/13/19at 08:27; Start 10/06/19 at 21:00; Stop 10/13/19 at 08:56; Status DC Albumin Human 250 ml @ 62.5 mls/hr 1X ONCE IV Last administered on 10/07/19at 11:09; Start 10/07/19 at 11:00; Stop 10/07/19 at 14:59; Status DC Furosemide (Lasix) 20 mg 1X ONCE IVP Last administered on 10/07/19at 14:52; Start 10/07/19 at 10:45; Stop 10/07/19 at 10:49; Status DC Potassium Acetate 60 meq/Magnesium Sulfate 14 meq/ Multivitamins 10 ml/Chromium/ Copper/Manganese/ Seleni/Zn 1 ml/ Insulin Human Regular 15 unit/ Total Parenteral Nutrition/Amino Acids/Dextrose/ Fat Emulsion Intravenous 1,920 ml @ 80 mls/hr TPN CONT IV Last administered on 10/07/19at 22:08; Start 10/07/19 at 22:00; Stop 10/08/19 at 21:59; Status DC Potassium Acetate 60 meq/Magnesium Sulfate 14 meq/ Multivitamins 10 ml/Chromium/ Copper/Manganese/ Seleni/Zn 1 ml/ Insulin Human Regular 15 unit/ Total Parenteral Nutrition/Amino Acids/Dextrose/ Fat Emulsion Intravenous 1,920 ml @ 80 mls/hr TPN CONT IV Last administered on 10/08/19at 22:12; Start 10/08/19 at 22:00; Stop 10/09/19 at 21:59; Status DC Potassium Acetate 60 meq/Magnesium Sulfate 14 meq/ Multivitamins 10 ml/Chromium/ Copper/Manganese/ Seleni/Zn 1 ml/ Insulin Human Regular 15 unit/ Total Parenteral Nutrition/Amino Acids/Dextrose/ Fat Emulsion Intravenous 1,920 ml @ 80 mls/hr TPN CONT IV Last administered on 10/09/19at 22:22; Start 10/09/19 at 22:00; Stop 10/10/19 at 21:59; Status DC Furosemide (Lasix) 20 mg 1X ONCE IVP Last administered on 10/10/19at 11:07; Start 10/10/19 at 10:30; Stop 10/10/19 at 10:34; Status DC Potassium Acetate 60 meq/Magnesium Sulfate 14 meq/ Multivitamins 10 ml/Chromium/ Copper/Manganese/ Seleni/Zn 1 ml/ Insulin Human Regular 15 unit/ Sodium Chloride 20 meq/Total Parenteral Nutrition/Amino Acids/Dextrose/ Fat Emulsion Intravenous 1,920 ml @ 80 mls/hr TPN CONT IV Last administered on 10/10/19at 21:54; Start 10/10/19 at 22:00; Stop 10/11/19 at 21:59; Status DC Potassium Acetate 30 meq/Magnesium Sulfate 14 meq/ Multivitamins 10 ml/Chromium/ Copper/Manganese/ Seleni/Zn 1 ml/ Insulin Human Regular 15 unit/ Sodium Chloride 20 meq/Potassium Chloride 30 meq/ Total Parenteral Nutrition/Amino Acids/Dextrose/ Fat Emulsion Intravenous 1,920 ml @ 80 mls/hr TPN CONT IV Last administered on 10/11/19at 21:46; Start 10/11/19 at 22:00; Stop 10/12/19 at 21:59; Status DC Sodium Chloride 80 meq/Potassium Chloride 30 meq/ Potassium Acetate 30 meq/Magnesium Sulfate 14 meq/ Multivitamins 10 ml/Chromium/ Copper/Manganese/ Seleni/Zn 1 ml/ Insulin Human Regular 15 unit/ Total Parenteral Nutrition/Amino Acids/Dextrose/ Fat Emulsion Intravenous 1,920 ml @ 80 mls/hr TPN CONT IV Last administered on 10/12/19at 22:33; Start 10/12/19 at 22:00; Stop 10/13/19 at 21:59; Status DC Furosemide (Lasix) 40 mg 1X ONCE IVP Last administered on 10/12/19at 16:27; Start 10/12/19 at 15:30; Stop 10/12/19 at 15:33; Status DC Albumin Human 250 ml @ 62.5 mls/hr 1X ONCE IV Last administered on 10/12/19at 16:27; Start 10/12/19 at 15:30; Stop 10/12/19 at 19:29; Status DC Sodium Chloride 80 meq/Potassium Chloride 30 meq/ Potassium Acetate 30 meq/Magnesium Sulfate 14 meq/ Multivitamins 10 ml/Chromium/ Copper/Manganese/ Seleni/Zn 1 ml/ Insulin Human Regular 15 unit/ Total Parenteral Nutrition/Amino Acids/Dextrose/ Fat Emulsion Intravenous 1,920 ml @ 80 mls/hr TPN CONT IV Last administered on 10/13/19at 22:25; Start 10/13/19 at 22:00; Stop 10/14/19 at 21:59; Status DC Sodium Chloride 80 meq/Potassium Chloride 30 meq/ Potassium Acetate 30 meq/Magnesium Sulfate 14 meq/ Multivitamins 10 ml/Chromium/ Copper/Manganese/ Seleni/Zn 1 ml/ Insulin Human Regular 15 unit/ Total Parenteral Nutrition/Amino Acids/Dextrose/ Fat Emulsion Intravenous 1,920 ml @ 80 mls/hr TPN CONT IV Last administered on 10/14/19at 21:32; Start 10/14/19 at 22:00; Stop 10/15/19 at 21:59; Status DC Sodium Chloride 80 meq/Potassium Chloride 30 meq/ Potassium Acetate 30 meq/Magnesium Sulfate 14 meq/ Multivitamins 10 ml/Chromium/ Copper/Manganese/ Seleni/Zn 1 ml/ Insulin Human Regular 15 unit/ Total Parenteral Nutrition/Amino Acids/Dextrose/ Fat Emulsion Intravenous 1,920 ml @ 80 mls/hr TPN CONT IV Last administered on 10/15/19at 21:53; Start 10/15/19 at 22:00; Stop 10/16/19 at 21:59; Status DC Acetylcysteine (Mucomyst 20% Resp Treatment) 600 mg RTBID NEB Last administered on 10/22/19at 07:42; Start 10/15/19 at 12:00 Sodium Chloride 80 meq/Potassium Chloride 30 meq/ Potassium Acetate 30 meq/Magnesium Sulfate 14 meq/ Multivitamins 10 ml/Chromium/ Copper/Manganese/ Seleni/Zn 1 ml/ Insulin Human Regular 15 unit/ Total Parenteral Nutrition/Amino Acids/Dextrose/ Fat Emulsion Intravenous 1,920 ml @ 80 mls/hr TPN CONT IV Last administered on 10/16/19at 22:06; Start 10/16/19 at 22:00; Stop 10/17/19 at 21:59; Status DC Meropenem 500 mg/ Sodium Chloride 50 ml @ 100 mls/hr Q6HRS IV Last administered on 10/22/19at 12:01; Start 10/16/19 at 18:00 Daptomycin 500 mg/ Sodium Chloride 50 ml @ 100 mls/hr Q24H IV Last administered on 10/21/19at 20:01; Start 10/16/19 at 19:00 Sodium Chloride 80 meq/Potassium Chloride 30 meq/ Potassium Acetate 30 meq/Magnesium Sulfate 14 meq/ Multivitamins 10 ml/Chromium/ Copper/Manganese/ Seleni/Zn 1 ml/ Insulin Human Regular 15 unit/ Total Parenteral Nutrition/Amino Acids/Dextrose/ Fat Emulsion Intravenous 1,920 ml @ 80 mls/hr TPN CONT IV Last administered on 10/17/19at 22:09; Start 10/17/19 at 22:00; Stop 10/18/19 at 21:59; Status DC Heparin Sodium (Porcine) 1000 unit/Sodium Chloride 1,001 ml @ 1,001 mls/hr 1X ONCE IRR ; Start 10/18/19 at 06:00; Stop 10/18/19 at 06:59; Status DC Propofol (Diprivan) 200 mg STK-MED ONCE IV ; Start 10/18/19 at 07:44; Stop 10/18/19 at 07:44; Status DC Lidocaine HCl (Lidocaine Pf 2% Vial) 5 ml STK-MED ONCE .ROUTE ; Start 10/18/19 at 07:44; Stop 10/18/19 at 07:44; Status DC Fentanyl Citrate (Fentanyl 2ml Vial) 100 mcg STK-MED ONCE .ROUTE ; Start 10/18/19 at 07:44; Stop 10/18/19 at 07:44; Status DC Rocuronium [place] (Zemuron) 100 mg STK-MED ONCE .ROUTE ; Start 10/18/19 at 07:44; Stop 10/18/19 at 07:44; Status DC Micafungin Sodium 100 mg/Dextrose 100 ml @ 100 mls/hr Q24H IV Last administered on 10/22/19at 07:51; Start 10/18/19 at 08:30 Bupivacaine HCl/ Epinephrine Bitart (Sensorcain-Epi 0.5%-1:246853 Mpf) 30 ml STK-MED ONCE .ROUTE ; Start 10/18/19 at 08:34; Stop 10/18/19 at 08:35; Status DC Iohexol (Omnipaque 300 Mg/ml) 50 ml STK-MED ONCE .ROUTE Last administered on 10/18/19at 13:30; Start 10/18/19 at 08:35; Stop 10/18/19 at 08:35; Status DC Sodium Chloride 80 meq/Potassium Chloride 30 meq/ Potassium Acetate 30 meq/Magnesium Sulfate 14 meq/ Multivitamins 10 ml/Chromium/ Copper/Manganese/ Seleni/Zn 1 ml/ Insulin Human Regular 15 unit/ Total Parenteral Nutrition/Amino Acids/Dextrose/ Fat Emulsion Intravenous 1,920 ml @ 80 mls/hr TPN CONT IV Last administered on 10/19/19at 01:22; Start 10/18/19 at 22:00; Stop 10/19/19 at 21:59; Status DC Phenylephrine HCl (Brayden-Synephrine Inj) 10 mg STK-MED ONCE .ROUTE ; Start 10/18/19 at 10:15; Stop 10/18/19 at 10:15; Status DC Desflurane (Suprane) 90 ml STK-MED ONCE IH ; Start 10/18/19 at 10:18; Stop 10/18/19 at 10:19; Status DC Albumin Human 500 ml @ As Directed STK-MED ONCE IV ; Start 10/18/19 at 11:06; Stop 10/18/19 at 11:06; Status DC Vasopressin (Vasostrict) 20 unit STK-MED ONCE .ROUTE ; Start 10/18/19 at 12:23; Stop 10/18/19 at 12:23; Status DC Phenylephrine HCl (Brayden-Synephrine Inj) 10 mg STK-MED ONCE .ROUTE ; Start 10/18/19 at 13:33; Stop 10/18/19 at 13:33; Status DC Phenylephrine HCl (Brayden-Synephrine Inj) 10 mg STK-MED ONCE .ROUTE ; Start 10/18/19 at 13:33; Stop 10/18/19 at 13:33; Status DC Ondansetron HCl (Zofran) 4 mg STK-MED ONCE .ROUTE ; Start 10/18/19 at 13:33; Stop 10/18/19 at 13:33; Status DC Enoxaparin Sodium (Lovenox 40mg Syringe) 40 mg Q24H SQ Last administered on 10/22/19at 09:35; Start 10/19/19 at 08:00 Sodium Chloride (Normal Saline Flush) 3 ml QSHIFT PRN IV AFTER MEDS AND BLOOD DRAWS; Start 10/18/19 at 14:45 Naloxone HCl (Narcan) 0.4 mg PRN Q2MIN PRN IV SEE INSTRUCTIONS; Start 10/18/19 at 14:45 Sodium Chloride 1,000 ml @ 25 mls/hr Q24H IV Last administered on 10/22/19at 12:37; Start 10/18/19 at 14:33 Morphine Sulfate (Morphine Sulfate) 1 mg PRN Q1HR PRN IV PAIN; Start 10/18/19 at 14:45 Midazolam HCl 100 mg/Sodium Chloride 100 ml @ 1 mls/hr CONT PRN IV SEE I/O RECORD Last administered on 10/21/19at 18:48; Start 10/18/19 at 14:45 Phenylephrine HCl (PHENYLEPHRINE in 0.9% NACL PF) 1 mg STK-MED ONCE IV ; Start 10/18/19 at 14:44; Stop 10/18/19 at 14:45; Status DC Ephedrine Sulfate (ePHEDrine PF IN SALINE SYRINGE) 50 mg STK-MED ONCE IV ; Start 10/18/19 at 14:45; Stop 10/18/19 at 14:45; Status DC Vasopressin 20 unit/Dextrose 101 ml @ 12 mls/hr CONT PRN IV SEE I/O RECORD [facility] st administered on 10/22/19at 02:03; Start 10/18/19 at 15:30 Sodium Chloride 1,000 ml @ 1,000 mls/hr 1X ONCE IV Last administered on 10/18/19at 15:42; Start 10/18/19 at 15:45; Stop 10/18/19 at 16:44; Status DC Albumin Human 500 ml @ 125 mls/hr 1X ONCE IV ; Start 10/18/19 at 16:00; Stop 10/18/19 at 19:59; Status DC Albumin Human 500 ml @ 125 mls/hr PRN Q1HR PRN IV PER PROTOCOL; Start 10/18/19 at 15:45 Magnesium Sulfate 50 ml @ 25 mls/hr 1X ONCE IV Last administered on 10/18/19at 17:02; Start 10/18/19 at 16:30; Stop 10/18/19 at 18:29; Status DC Sodium Bicarbonate (Sodium Bicarb Adult 8.4% Syr) 50 meq STK-MED ONCE .ROUTE ; Start 10/18/19 at 16:20; Stop 10/18/19 at 16:20; Status DC Sodium Bicarbonate (Sodium Bicarb Adult 8.4% Syr) 100 meq 1X ONCE IV Last administered on 10/18/19at 17:07; Start 10/18/19 at 16:30; Stop 10/18/19 at 16:31; Status DC Sodium Bicarbonate 150 meq/Dextrose 1,150 ml @ 75 mls/hr 1X ONCE IV Last administered on 10/18/19at 20:02; Start 10/18/19 at 16:30; Stop 10/19/19 at 07:49; Status DC Sodium Chloride 80 meq/Potassium Chloride 30 meq/ Potassium Acetate 30 meq/Magnesium Sulfate 14 meq/ Multivitamins 10 ml/Chromium/ Copper/Manganese/ Seleni/Zn 1 ml/ Insulin Human Regular 15 unit/ Total Parenteral Nutrition/Amino Acids/Dextrose/ Fat Emulsion Intravenous 1,920 ml @ 80 mls/hr TPN CONT IV Last administered on 10/19/19at 23:05; Start 10/19/19 at 22:00; Stop 10/20/19 at 21:59; Status DC Sodium Chloride 100 meq/Potassium Chloride 30 meq/ Potassium Acetate 30 meq/Magnesium Sulfate 12 meq/ Multivitamins 10 ml/Chromium/ Copper/Manganese/ Seleni/Zn 1 ml/ Insulin Human Regular 15 unit/ Total Parenteral Nutrition/Amino Acids/Dextrose/ Fat Emulsion Intravenous 1,920 ml @ 80 mls/hr TPN CONT IV Last administered on 10/20/19at 21:52; Start 10/20/19 at 22:00; Stop 10/21/19 at 21:59; Status DC Sodium Chloride 100 meq/Potassium Chloride 30 meq/ Potassium Acetate 30 meq/Magnesium Sulfate 12 meq/ Multivitamins 10 ml/Chromium/ Copper/Manganese/ Seleni/Zn 1 ml/ Insulin Human Regular 15 unit/ Total Parenteral Nutrition/Amino Acids/Dextrose/ Fat Emulsion Intravenous 1,920 ml @ 80 mls/hr TPN CONT IV Last administered on 10/21/19at 21:46; Start 10/21/19 at 22:00; Stop 10/22/19 at 21:59 Sodium Chloride 100 meq/Potassium Chloride 30 meq/ Potassium Acetate 30 meq/Ma gnesium Sulfate 12 meq/ Multivitamins 10 ml/Chromium/ Copper/Manganese/ Seleni/Zn 1 ml/ Insulin Human Regular 15 unit/ Total Parenteral Nutrition/Amino Acids/Dextrose/ Fat Emulsion Intravenous 1,800 ml @ 75 mls/hr TPN CONT IV ; Start 10/22/19 at 22:00; Stop 10/23/19 at 21:59 Fentanyl Citrate 55 ml @ 0 mls/hr CONT PRN IV SEE COMMENTS; Start 10/22/19 at 13:00 Active Scripts Active Reported Bisoprolol Fumarate 5 Mg Tablet 10 Mg PO DAILY Vitals/I & O Vital Sign - Last 24 Hours 10/21/19 10/21/19 10/21/19 10/21/19 13:42 13:55 14:00 14:30 Pulse 78 Resp 12 B/P (MAP) 114/68 (83) Pulse Ox 99 99 98 98 O2 Delivery Ventilator Ventilator Ventilator Ventilator 10/21/19 10/21/19 10/21/19 10/21/19 15:00 15:38 15:52 16:00 Temp 98.2 98.2 Pulse 86 96 Resp 14 12 B/P (MAP) 105/57 (73) 100/57 (71) Pulse Ox 98 98 99 O2 Delivery Ventilator Ventilator Mechanical Ventilator Ventilator 10/21/19 10/21/19 10/21/19 10/21/19 17:00 17:40 18:00 19:00 Pulse 90 91 93 Resp 14 15 15 B/P (MAP) 98/56 (70) 110/65 (80) 105/60 (75) Pulse Ox 97 95 98 98 O2 Delivery Ventilator Ventilator Ventilator Ventilator 10/21/19 10/21/19 10/21/19 10/21/19 19:48 20:00 20:00 21:00 Pulse 92 90 Resp 15 15 B/P (MAP) 105/60 (75) 121/72 (88) Pulse Ox 98 98 98 O2 Delivery Ventilator Ventilator Mechanical Ventilator Ventilator 10/21/19 10/21/19 10/22/19 10/22/19 22:00 23:00 00:00 00:00 Temp 98.7 98.7 Pulse 93 92 93 Resp 15 15 15 B/P (MAP) 109/62 (78) 92/52 (65) 96/57 (70) Pulse Ox 98 98 98 O2 Delivery Ventilator Ventilator Ventilator Mechanical Ventilator 10/22/19 10/22/19 10/22/19 10/22/19 00:37 01:00 02:00 03:00 Pulse 82 84 85 Resp 15 15 15 B/P (MAP) 96/56 (69) 94/64 (74) 98/67 (77) Pulse Ox 98 98 98 98 O2 Delivery Ventilator Ventilator Ventilator Ventilator 10/22/19 10/22/19 10/22/19 10/22/19 04:00 04:00 05:00 06:00 Temp 98.9 98.9 Pulse 94 90 81 Resp 15 15 15 B/P (MAP) 106/57 (73) 106/56 (73) 93/48 (63) Pulse Ox 98 98 98 O2 Delivery Mechanical Ventilator Ventilator Ventilator Ventilator 10/22/19 10/22/19 10/22/19 10/22/19 07:00 07:33 08:00 08:00 Temp 98.6 98.6 Pulse 78 89 Resp 14 19 B/P (MAP) 99/57 (71) 100/57 (71) Pulse Ox 99 100 100 O2 Delivery Ventilator Ventilator Mechanical Ventilator Ventilator 10/22/19 10/22/19 10/22/19 10/22/19 08:03 08:30 08:43 09:00 Pulse 90 Resp 17 B/P (MAP) 107/56 (73) Pulse Ox 99 99 100 99 O2 Delivery Ventilator Ventilator Ventilator Ventilator 10/22/19 10/22/19 10/22/19 10/22/19 09:15 09:30 09:45 10:00 Pulse 85 84 81 81 Resp 16 B/P (MAP) 110/59 (76) 107/56 (73) 103/56 (72) 100/59 (73) Pulse Ox 100 O2 Delivery Ventilator 10/22/19 10/22/19 10/22/19 10/22/19 10:15 10:30 10:45 11:00 Pulse 87 85 86 86 B/P (MAP) 99/54 (69) 100/60 (73) 98/56 (70) 97/53 (68) 10/22/19 10/22/19 10/22/19 10/22/19 11:15 11:40 11:51 11:57 Temp 98.6 98.6 Pulse 93 93 90 Resp 18 B/P (MAP) 102/56 (71) 93/47 (62) 92/51 (65) Pulse Ox 99 O2 Delivery Mechanical Ventilator Ventilator 10/22/19 10/22/19 10/22/19 10/22/19 12:00 12:15 12:19 12:30 Pulse 86 86 B/P (MAP) 87/47 (60) 90/51 (64) 101/57 (72) Pulse Ox 99 O2 Delivery Ventilator Intake and Output 10/21/19 10/21/19 10/22/19 15:00 23:00 07:00 Intake Total 100 ml 1699.25 ml 1150.0 ml Output Total 626 ml 1195 ml 530 ml Balance -526 ml 504.25 ml 620.0 ml Justicifation of Admission Dx: Justifications for Admission: Justification of Admission Dx: Yes GREG HERRERA MD Oct 22, 2019 13:21
[2019-10-22] MEDS: fentaNYL HIGH DOSE PCA 55 ML IV PRN (14:00)
[2019-10-22] MEDS: DAPTOmycin (GENERIC) IVPB 500 MG in IV NORMAL SALINE 50ML 50 ML IV SCH (20:03)
[2019-10-22] MEDS ORDERED: AMINO ACID IV SCH ×10 (22:00)
[2019-10-22] MEDS ORDERED: [UNRECOGNIZED DRUG - OTHER] IV SCH ×10 (22:00)
[2019-10-22] MEDS ORDERED: TOTAL PARENTERAL NUTRITION IV SCH ×10 (22:00)
[2019-10-22] MEDS ORDERED: DEXTROSE 70% IV SCH ×10 (22:00)
[2019-10-23] VITALS (26 sets, daily range): BP systolic 81–117; BP diastolic 48–74
[2019-10-23] MEDS: MEROPENEM 500 MG in IV NORMAL SALINE 50ML 50 ML IV SCH ×5 (00:22→23:54)
[2019-10-23] MEDS: IPRATRPIUM/ALBUTEROL 0.5/2.5MG 3 ML NEBU. NEB SCH ×7 (04:00→23:52)
[2019-10-23] MEDS: INSULIN LISPRO 300 UNITS/3 ML VIAL. SQ SCH ×5 (05:59→23:54)
[2019-10-23 06:43] LABS: CALCIUM 8.8 mg/dL (8.5-10.1); CREATININE 0.6 mg/dL (0.6-1.0); GFR 106.3; POTASSIUM 4.7 mmol/L (3.5-5.1)
[2019-10-23] MEDS: VASOPRESSIN 20 UNIT in IV DEXTROSE 5% 100ML 100 ML IV PRN ×3 (08:14→21:23)
[2019-10-23] MEDS: PANTOPRAZOLE IV PUSH 40 MG VIAL. IVP SCH (08:19)
--- NOTE | 2019-10-23 08:20 | PDOC ---
SURGICAL PROGRESS NOTE Subjective Sedated and ventilated Vital Signs Vital Signs Date Time Temp Pulse Resp B/P (MAP) Pulse Ox O2 Delivery O2 Flow Rate FiO2 10/23/19 08:00 Mechanical Ventilator 10/23/19 07:00 94 14 96/48 (64) 100 10/23/19 04:00 98.7 98.7 I&O Intake and Output 10/23/19 07:00 Intake Total 3424.2 ml Output Total 2742 ml Balance 682.2 ml Intake Oral 0 ml IV Total 2558.2 ml Tube Feeding 716 ml Other 150 ml Output Urine Total 1317 ml Gastric Drainage Total 200 ml Chest Tube Drainage Total 130 ml Drainage Total 1095 ml PATIENT HAS A ROSARIO: Yes General: Other (Sedated) Abdomen: Normal bowel sounds, Soft, Other (Wounds clean dry and intact with the wound VAC. Pleur-evac drains with minimal output KAYLIN drain with serous output minimal NG tube output) Labs Laboratory Tests Test 10/21/19 10:16 10/21/19 12:26 10/21/19 18:06 10/21/19 23:56 Sodium Level 133 mmol/L (136-145) Potassium Level 3.9 mmol/L (3.5-5.1) Chloride Level 102 mmol/L (98-107) Carbon Dioxide Level 28 mmol/L (21-32) Anion Gap 3 (6-14) Blood Urea Nitrogen 20 mg/dL (7-20) Creatinine 0.6 mg/dL (0.6-1.0) Estimated GFR (Cockcroft-Gault) 106.3 BUN/Creatinine Ratio 33 (6-20) Glucose Level 224 mg/dL (70-99) Calcium Level 8.6 mg/dL (8.5-10.1) Total Bilirubin 0.6 mg/dL (0.2-1.0) Aspartate Amino Transf (AST/SGOT) 42 U/L (15-37) Alanine Aminotransferase (ALT/SGPT) 98 U/L (14-59) Alkaline Phosphatase 199 U/L (46-116) Total Protein 3.7 g/dL (6.4-8.2) Albumin 1.0 g/dL (3.4-5.0) Albumin/Globulin Ratio 0.4 (1.0-1.7) Glucose (Fingerstick) 179 mg/dL (70-99) 143 mg/dL (70-99) 136 mg/dL (70-99) Test 10/22/19 06:12 10/22/19 06:15 10/22/19 11:50 10/22/19 18:09 Glucose (Fingerstick) 141 mg/dL (70-99) 149 mg/dL (70-99) 127 mg/dL (70-99) White Blood Count 25.9 x10^3/uL (4.0-11.0) Red Blood Count 2.52 x10^6/uL (3.50-5.40) Hemoglobin 7.4 g/dL (12.0-15.5) Hematocrit 22.3 % (36.0-47.0) Mean Corpuscular Volume 88 fL (79-100) Mean Corpuscular Hemoglobin 30 pg (25-35) Mean Corpuscular Hemoglobin Concent 33 g/dL (31-37) Red Cell Distribution Width 15.1 % (11.5-14.5) Platelet Count 269 x10^3/uL (140-400) Neutrophils (%) (Auto) 89 % (31-73) Lymphocytes (%) (Auto) 5 % (24-48) Monocytes (%) (Auto) 5 % (0-9) Eosinophils (%) (Auto) 1 % (0-3) Basophils (%) (Auto) 0 % (0-3) Neutrophils # (Auto) 23.0 x10^3/uL (1.8-7.7) Lymphocytes # (Auto) 1.3 x10^3/uL (1.0-4.8) Monocytes # (Auto) 1.2 x10^3/uL (0.0-1.1) Eosinophils # (Auto) 0.2 x10^3/uL (0.0-0.7) Basophils # (Auto) 0.1 x10^3/uL (0.0-0.2) Sodium Level 132 mmol/L (136-145) Potassium Level 4.2 mmol/L (3.5-5.1) Chloride Level 101 mmol/L (98-107) Carbon Dioxide Level 29 mmol/L (21-32) Anion Gap 2 (6-14) Blood Urea Nitrogen 20 mg/dL (7-20) Creatinine 0.5 mg/dL (0.6-1.0) Estimated GFR (Cockcroft-Gault) 131.1 BUN/Creatinine Ratio 40 (6-20) Glucose Level 130 mg/dL (70-99) Calcium Level 8.6 mg/dL (8.5-10.1) Total Bilirubin 0.6 mg/dL (0.2-1.0) Aspartate Amino Transf (AST/SGOT) 28 U/L (15-37) Alanine Aminotransferase (ALT/SGPT) 68 U/L (14-59) Alkaline Phosphatase 210 U/L (46-116) Total Protein 3.2 g/dL (6.4-8.2) Albumin 0.9 g/dL (3.4-5.0) Albumin/Globulin Ratio 0.4 (1.0-1.7) Test 10/23/19 00:20 10/23/19 05:57 10/23/19 06:00 Glucose (Fingerstick) 126 mg/dL (70-99) 120 mg/dL (70-99) Sodium Level 134 mmol/L (136-145) Potassium Level 4.7 mmol/L (3.5-5.1) Chloride Level 102 mmol/L (98-107) Carbon Dioxide Level 29 mmol/L (21-32) Anion Gap 3 (6-14) Blood Urea Nitrogen 21 mg/dL (7-20) Creatinine 0.6 mg/dL (0.6-1.0) Estimated GFR (Cockcroft-Gault) 106.3 Glucose Level 126 mg/dL (70-99) Calcium Level 8.8 mg/dL (8.5-10.1) Laboratory Tests Test 10/22/19 11:50 10/22/19 18:09 10/23/19 00:20 10/23/19 05:57 Glucose (Fingerstick) 149 mg/dL (70-99) 127 mg/dL (70-99) 126 mg/dL (70-99) 120 mg/dL (70-99) Test 10/23/19 06:00 Sodium Level 134 mmol/L (136-145) Potassium Level 4.7 mmol/L (3.5-5.1) Chloride Level 102 mmol/L (98-107) Carbon Dioxide Level 29 mmol/L (21-32) Anion Gap 3 (6-14) Blood Urea Nitrogen 21 mg/dL (7-20) Creatinine 0.6 mg/dL (0.6-1.0) Estimated GFR (Cockcroft-Gault) 106.3 Glucose Level 126 mg/dL (70-99) Calcium Level 8.8 mg/dL (8.5-10.1) Problem List Problems Medical Problems: (1) Acute pancreatitis Status: Acute (2) Cholelithiasis Status: Acute Assessment/Plan Status post debridement of pancreas Off pressors at this point blood pressure running 80s we will restart vasopressin at low-dose Should be able to increase tube feeds tomorrow per Dr. Tovar Supportive care Justicifation of Admission Dx: Justifications for Admission: Justification of Admission Dx: Yes CARIN MALDONADO MD Oct 23, 2019 08:19
[2019-10-23] MEDS: ENOXAPARIN 40 MG/0.4 ML SYRINGE. SQ SCH (08:21)
[2019-10-23] MEDS: MICAFUNGIN 100 MG in IV DEXTROSE 5% 100ML 100 ML IV SCH (08:22)
[2019-10-23] MEDS: ACETYLCYSTEINE 20% for RESP TX 600 MG/3 ML. NEB SCH ×2 (08:45→20:00)
--- NOTE | 2019-10-23 09:10 | PDOC ---
Infectious Disease Note Subjective Subjective Sedated Remains on ventilator support, FiO2 40% No fevers last 72 hrs TPN Still on vasopressin, off levophed ROS ROS unobtainable Vital Sign Vital Signs Vital Signs Date Time Temp Pulse Resp B/P (MAP) Pulse Ox O2 Delivery O2 Flow Rate FiO2 10/23/19 08:50 98 Ventilator 10/23/19 07:00 94 14 96/48 (64) 10/23/19 04:00 98.7 98.7 Physical Exam PHYSICAL EXAM GENERAL: Sedated, ill appearing HEENT: Pupils equal, oral cavity dry. + NGT NECK: Tracheostomy LUNGS: Diminished aeration bases, CT on left HEART: S1, S2, regular w/ PVCs ABDOMEN: Distended, bowel sounds hypoactive, soft, goyal x 2, 3 KAYLIN drains, G-J tube and + wound vac : Lind in place EXTREMITIES: Generalized edema, no cyanosis. SCDs & Podus boots bilaterally SKIN: warm touch. No signs of rash. LUE-PICC without signs of complications LUE art-line out, mottling left forearm, some better. RP palpable, cap refill brisk. Labs Lab Laboratory Tests Test 10/22/19 11:50 10/22/19 18:09 10/23/19 00:20 10/23/19 05:57 Glucose (Fingerstick) 149 mg/dL (70-99) 127 mg/dL (70-99) 126 mg/dL (70-99) 120 mg/dL (70-99) Test 10/23/19 06:00 Sodium Level 134 mmol/L (136-145) Potassium Level 4.7 mmol/L (3.5-5.1) Chloride Level 102 mmol/L (98-107) Carbon Dioxide Level 29 mmol/L (21-32) Anion Gap 3 (6-14) Blood Urea Nitrogen 21 mg/dL (7-20) Creatinine 0.6 mg/dL (0.6-1.0) Estimated GFR (Cockcroft-Gault) 106.3 Glucose Level 126 mg/dL (70-99) Calcium Level 8.8 mg/dL (8.5-10.1) Micro 10/15. BLOOD CULTURE Preliminary NO GROWTH AFTER 5 DAYS 10/17. GRAM STAIN Final Final SQUAMOUS EPI CELL:RARE PMN (WBCs):FEW YEAST:FEW ANAEROBIC-AEROBIC CULTURE Preliminary Preliminary ANAEROBIC-AEROBIC CULTURE Preliminary Preliminary MANY YEAST on 10/21/19 at 1354 FINAL ID= [DEVYN PARAPSILOSIS] FEW FINAL ID= [PSEUDOMONAS AERUGINOSA] DEVYN PARAPSILOSIS PSEUDOMONAS AERUGINOSA Objective Assessment Patient with prolonged hospitalization more than 3 months Multiple medical problems Multiple surgical procedures S/P Exp. Lap, SAURABH, subtotal cholecystectomy with cholangiogram, G-J tube placement & pancreatic necrosectomy on October 17 C. parapsilosis & PSAE Leucocytosis - leukomoid reaction likely postoperative, improving Fever intermittently source likely GI, imrpoved Acute gallstone pancreatitis with persistent necrosis -CT a/p 07/27. Increased ascites. 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 status post KAYLIN drain placement; C. parapsilosis. s/p drain 08/23 + yeast & high amylase; s/p additional drain on 08/25. Drains removed. -08/23. fluid devyn parapsilosis fluid, amylase high - 09/23 showed multiple pseudocysts, slight larger on the right. s/p drains x 3, 09/24. + PSAE (MDRO-R Cefepime, Zosyn ALEXANDRA < 64) and yeast, -09/24 s/p drain replacement x 3; fluid cult PSAE (MDRO), yeast; treated Ascites s/p paracentesis 08/02 & 08/23. C. parapsilosis Cholelithiasis with thickening of the gallbladder wall. JUANA, Hyperkalemia, Metabolic acidosis off dialysis Acute hypoxic resp failure. trach/vent. sputum 09/30 + PSAE (I merrem) Pleural effusions s/p left thoracentesis, 08/29. no culture. s/p left chest tube, 10/02 no growth Hypocalcemia Prediabetes HTN Anemia s/p PRBCs Plan Plan of Care continue dapto, merrem and micafungin Last CK 17 Monitor labs f/u cultures/susceptibilities still pending wound care /drain management as directed Monitor left forearm Contact isolation for CRE/MDRO Critically ill D/w nursing Patient discussed in detail with FURNACE FITTER. Chart reviewed in detail. Above plan co- formulated and agreed upon with FURNACE FITTER on 10/22/2019 FRANCA HOBSON APRN Oct 23, 2019 09:10 GERMAN TORRES MD Oct 23, 2019 19:37
--- NOTE | 2019-10-23 09:15 | PDOC ---
PULMONARY PROGRESS NOTES Subjective Remains A/C mode and sedated, Fi02 40% and PEEP of 5 continues with TPN/TF and vasopressin S/P Exploratory laparotomy, lysis of adhesions, subtotal cholecystectomy with cholangiogram, gastrojejunostomy tube placement, pancreatic necrosectomy on 10/17 no overnight concerns from nursing Vitals Vital Signs Date Time Temp Pulse Resp B/P (MAP) Pulse Ox O2 Delivery O2 Flow Rate FiO2 10/23/19 08:50 98 Ventilator 10/23/19 07:00 94 14 96/48 (64) 10/23/19 04:00 98.7 98.7 Comments trach/sedated on vent Lungs: Crackles Cardiovascular: S1, S2 Abdomen: Soft, Non-tender, Other (multiple KAYLIN drains ) Extremities: Other (+1 BLE edema) Skin: Warm Labs Laboratory Tests Test 10/21/19 10:16 10/21/19 12:26 10/21/19 18:06 10/21/19 23:56 Sodium Level 133 mmol/L (136-145) Potassium Level 3.9 mmol/L (3.5-5.1) Chloride Level 102 mmol/L (98-107) Carbon Dioxide Level 28 mmol/L (21-32) Anion Gap 3 (6-14) Blood Urea Nitrogen 20 mg/dL (7-20) Creatinine 0.6 mg/dL (0.6-1.0) Estimated GFR (Cockcroft-Gault) 106.3 BUN/Creatinine Ratio 33 (6-20) Glucose Level 224 mg/dL (70-99) Calcium Level 8.6 mg/dL (8.5-10.1) Total Bilirubin 0.6 mg/dL (0.2-1.0) Aspartate Amino Transf (AST/SGOT) 42 U/L (15-37) Alanine Aminotransferase (ALT/SGPT) 98 U/L (14-59) Alkaline Phosphatase 199 U/L (46-116) Total Protein 3.7 g/dL (6.4-8.2) Albumin 1.0 g/dL (3.4-5.0) Albumin/Globulin Ratio 0.4 (1.0-1.7) Glucose (Fingerstick) 179 mg/dL (70-99) 143 mg/dL (70-99) 136 mg/dL (70-99) Test 10/22/19 06:12 10/22/19 06:15 10/22/19 11:50 10/22/19 18:09 Glucose (Fingerstick) 141 mg/dL (70-99) 149 mg/dL (70-99) 127 mg/dL (70-99) White Blood Count 25.9 x10^3/uL (4.0-11.0) Red Blood Count 2.52 x10^6/uL (3.50-5.40) Hemoglobin 7.4 g/dL (12.0-15.5) Hematocrit 22.3 % (36.0-47.0) Mean Corpuscular Volume 88 fL (79-100) Mean Corpuscular Hemoglobin 30 pg (25-35) Mean Corpuscular Hemoglobin Concent 33 g/dL (31-37) Red Cell Distribution Width 15.1 % (11.5-14.5) Platelet Count 269 x10^3/uL (140-400) Neutrophils (%) (Auto) 89 % (31-73) Lymphocytes (%) (Auto) 5 % (24-48) Monocytes (%) (Auto) 5 % (0-9) Eosinophils (%) (Auto) 1 % (0-3) Basophils (%) (Auto) 0 % (0-3) Neutrophils # (Auto) 23.0 x10^3/uL (1.8-7.7) Lymphocytes # (Auto) 1.3 x10^3/uL (1.0-4.8) Monocytes # (Auto) 1.2 x10^3/uL (0.0-1.1) Eosinophils # (Auto) 0.2 x10^3/uL (0.0-0.7) Basophils # (Auto) 0.1 x10^3/uL (0.0-0.2) Sodium Level 132 mmol/L (136-145) Potassium Level 4.2 mmol/L (3.5-5.1) Chloride Level 101 mmol/L (98-107) Carbon Dioxide Level 29 mmol/L (21-32) Anion Gap 2 (6-14) Blood Urea Nitrogen 20 mg/dL (7-20) Creatinine 0.5 mg/dL (0.6-1.0) Estimated GFR (Cockcroft-Gault) 131.1 BUN/Creatinine Ratio 40 (6-20) Glucose Level 130 mg/dL (70-99) Calcium Level 8.6 mg/dL (8.5-10.1) Total Bilirubin 0.6 mg/dL (0.2-1.0) Aspartate Amino Transf (AST/SGOT) 28 U/L (15-37) Alanine Aminotransferase (ALT/SGPT) 68 U/L (14-59) Alkaline Phosphatase 210 U/L (46-116) Total Protein 3.2 g/dL (6.4-8.2) Albumin 0.9 g/dL (3.4-5.0) Albumin/Globulin Ratio 0.4 (1.0-1.7) Test 10/23/19 00:20 10/23/19 05:57 10/23/19 06:00 Glucose (Fingerstick) 126 mg/dL (70-99) 120 mg/dL (70-99) Sodium Level 134 mmol/L (136-145) Potassium Level 4.7 mmol/L (3.5-5.1) Chloride Level 102 mmol/L (98-107) Carbon Dioxide Level 29 mmol/L (21-32) Anion Gap 3 (6-14) Blood Urea Nitrogen 21 mg/dL (7-20) Creatinine 0.6 mg/dL (0.6-1.0) Estimated GFR (Cockcroft-Gault) 106.3 Glucose Level 126 mg/dL (70-99) Calcium Level 8.8 mg/dL (8.5-10.1) Laboratory Tests Test 10/22/19 11:50 10/22/19 18:09 10/23/19 00:20 10/23/19 05:57 Glucose (Fingerstick) 149 mg/dL (70-99) 127 mg/dL (70-99) 126 mg/dL (70-99) 120 mg/dL (70-99) Test 10/23/19 06:00 Sodium Level 134 mmol/L (136-145) Potassium Level 4.7 mmol/L (3.5-5.1) Chloride Level 102 mmol/L (98-107) Carbon Dioxide Level 29 mmol/L (21-32) Anion Gap 3 (6-14) Blood Urea Nitrogen 21 mg/dL (7-20) Creatinine 0.6 mg/dL (0.6-1.0) Estimated GFR (Cockcroft-Gault) 106.3 Glucose Level 126 mg/dL (70-99) Calcium Level 8.8 mg/dL (8.5-10.1) Medications Active Scripts Medications Dose Route/Sig Max Daily Dose Days Date Category Bisoprolol Fumarate 5 Mg Tablet 10 Mg PO DAILY 07/04/19 Reported Comments CXR 10/16/19 IMPRESSION: No significant interval change compared to 10/13/2019. ct abdomen /pelvis 09/23 1. Removal of the percutaneous pigtail drainage catheters since the prior exam. Sequela of pancreatitis with extensive pseudocysts again demonstrated, the right-sided collections are slightly larger since the prior exam, the left-sided collections are stable. See above. 2. Moderate to large left pleural effusion with atelectasis and collapse of most of the left lower lobe, stable. Small right pleural effusion is stable. 3. Gallstone. ct chest 10/02 reviewed GRAM NEG COCCOBACILLI:MANY SQUAMOUS EPI CELL:RARE PMN (WBCs):FEW Unless otherwise specified, Testing Performed by: [address] [address] For Inquires, the Physician may contact the Microbiology department at [phone] RESPIRATORY CULTURE Final Final MANY GRAM NEGATIVE RODS on 10/03/19 at 110 FINAL ID= [PSEUDOMONAS AERUGINOSA] MICRO CHARGES PSEUDOMONAS AERUGINOSA ANTIMICROBIAL SUSCEPTIBILITY Final Comment NEG ALEXANDRA 56 PSEUDOMONAS AERUGINOSA ANTIBIOTIC RESULT INTERPRETATION AMIKACIN <=16 S AZTREONAM <=4 S CEFTAZIDIME <=1 S CIPROFLOXACIN <=0.25 S CEFEPIME <=2 S CEFTAZIDIME/AVIBACTAM <=4 S GENTAMICIN <=2 S LEVOFLOXACIN <=0.5 S Impression . IMPRESSION: 1. Acute hypoxemic respiratory failure secondary to ARDS status post trach, developed anemia /, blood drainage from RLQ abdomen drain site, and surrounding firmness / developed septic shock 09/24 from abdomen source, required levo 6/7 s/p 3 new drains / with brown color drainage, 2. Gallstone pancreatitis, now with ongoing bleeding from prior drain. Anemic. s/p Tx multiple units over several days 3. septic shock/sepsis, recurrent 09/24, source abdomen. , 4. Acute kidney injury-, Off HD--renal function decling. suspect JUANA on CKD due to hypotension , improved now 5. Acute gallstone pancreatitis. 6. Hypoalbuminemia. 7. Moderate persistent effusions, s/p left thora 08/29, reaccumulation of left effusion. O2 requirement not changed. 8. Fever- ,hypotension. suspect recurrent sepsis/ likely pancreatic source. Per ID, per surgery-- 9. Chronic anemia-- ongoing / s/p PRBC 10. Covid 19 testing negative 11. Moderate to large ascites-S/P paracentisis 12.S/P paracentisis with 4 liters removed on 08/03/19 13. S/P IR drain placement on 08/26/2019, removal, re inserted 09/24 14. Depression/Anxiety 15. Increase effusion, ? loculated/ s/p chest tube.. drainage slowing down. 10/17 S/P Exploratory laparotomy, lysis of adhesions, subtotal cholecystectomy with cholangiogram, gastrojejunostomy tube placement, pancreatic necrosectomy leukocytosis- improving Plan . Case discussed with COMPUTER NETWORK AND SYSTEMS ENGINEER, and RN. See below Continue current vent support in A/C mode, follow ABG and CXR-- Plan for CPAP early this week S/P Exploratory laparotomy, lysis of adhesions, subtotal cholecystectomy with cholangiogram, gastrojejunostomy tube placement, pancreatic necrosectomy with multiple drains in place-- on 10/17 ABX per ID Follow surgery recs Continue TF and TPN for nutrition support Vasopressors for hypotension to keep MAP above 65 DVT/GI PPX D/W RN and RT CC time 30 minutes HARMEET BEE MD Oct 23, 2019 09:15
[2019-10-23] MEDS: TPN PER PHARMACY MC PRN (09:19)
--- NOTE | 2019-10-23 09:21 | NUR ---
Pharmacy TPN Dosing Note S: SCOTT CUELLAR is a 48 year old F Currently receiving Central Continuous TPN started 07/06/19 B:Pertinent PMH: Necrotizing pancreatitis Current diet: NPO LABS: Sodium: 134 Potassium: 4.7 Chloride: 102 Calcium: 8.8 Corrected Calcium: 11.28 Magnesium: 2.1 CO2: 29 SCr: 0.6 Glucose: 126 Albumin: 0.9 AST: 28 ALT: 68 TPN FORMULA: TPN TYPE: Central Continuous AMINO ACIDS: 80 gm DEXTROSE: 250 gm LIPIDS: 20 gm SODIUM CHLORIDE: 100 mEq SODIUM ACETATE: - mEq SODIUM PHOSPHATE: - mmol POTASSIUM CHLORIDE: 30 mEq POTASSIUM ACETATE: 30 mEq POTASSIUM PHOSPHATE: - mmol MAGNESIUM: 12 mEq CALCIUM: - mEq INSULIN: 15 units MULTIPLE VITAMIN: 10 ml TRACE ELEMENTS: 1 ml ml(s) TPN PLAN: 10/22 further decrease rate 2'hyponatremia, REPEAT LABS IN AM R: Continue TPN Will monitor electrolytes, glucose, and tolerance to TPN. LAURA LEO [facility], 10/23/19 0946
--- NOTE | 2019-10-23 15:46 | PDOC ---
PROGRESS NOTES Chief Complaint Chief Complaint Acute hypoxic Respiratory failure required mechanical ventilation Tracheostomy bilateral pleural effusions/pulm edema s/p Throacentesis on 10/03/2019 Severe Acute gallstone pancreatitis (not a surgical candidate at this time) with necrosis Acute kidney failure now requiring dialysis Gallstones (Calculus of gallbladder with acute cholecystitis without obstruction) HTN Intractable pain Intractable nausea Covid 19 negative. Acute on chronic anemia EEG: No seizure activityFever - better currently - intermittent could be from underlying pancreatitis blood cults 08/21 - neg so far ? Ileus with vomiting Abd distention - U/S and CT reviewed s/p 0.4 L of opaque, debris-containing ascites was removed 08/23 Acute pancreatitis with persistent necrosis Gallstone pancreatitis with necrosis. -CT A/P 09/23 showed multiple pseudocysts, slight larger on the right. s/p drains x , 09/24. + PSAE (MDRO-R Cefepime, Zosyn ALEXANDRA < 64) and yeast, -s/p drain 08/14. C. parapsilosis. s/p drain 08/23 + yeast & high amylase; s/p additional drain on 08/25. Drains removed. Ascites s/p paracentesis 08/02 & 08/23. C. parapsilosis JUANA. off HD. A large fluid collection in the pancreatic bed has slightly decreased in size, described below, the pancreas itself is difficult to visualize, which could be due to necrosis or obscuration of pancreatic parenchyma from the surrounding fluid collection.10/02 - 08/14 status post KAYLIN drain placement + C paropsilosis. s/p additional drains 08/25 Anemia - S/p PRBCs Cholelithiasis with thickening of the gallbladder wall. Leucocytosis improving JUANA, hyperkalemia, Metabolic acidosis off dialysis hypocalcemia Prediabetes HTN s/p trach ESRD on HD Hyperglycemia severe protein-caloric malnutrition Moderate to large left pleural effusion with atelectasis and collapse of most of the left lower lobe, stable Dispo - ICU, critically ill Poor prognosis History of Present Illness History of Present Illness 10/22 cont current prognosis poor, Vitals Vitals Vital Signs Date Time Temp Pulse Resp B/P (MAP) Pulse Ox O2 Delivery O2 Flow Rate FiO2 10/23/19 15:13 100 Ventilator 10/23/19 14:00 88 12 102/55 (71) 10/23/19 12:00 98.2 98.2 Physical Exam Physical Exam GENERAL: Sedated, ill appearing HEENT: Pupils equal, oral cavity dry. + NGT NECK: Tracheostomy LUNGS: Diminished aeration bases, CT on left HEART: S1, S2, regular w/ PVCs ABDOMEN: Distended, bowel sounds hypoactive, soft, goyal x 2, 3 KAYLIN drains, G-J tube and + wound vac : Lind in place EXTREMITIES: Generalized edema, no cyanosis. SCDs & Podus boots bilaterally SKIN: warm touch. No signs of rash. LUE-PICC without signs of complications LUE art-line out, mottling left forearm, some better. RP palpable, cap refill brisk. General: Other (Sedated) Heart: Regular rate (SR/ST), Other (distant heart sounds) Lungs: Crackles Abdomen: Normal bowel sounds, Soft, Other (Wounds clean dry and intact with the wound VAC. Pleur-evac drains with minimal output KAYLIN drain with serous output minimal NG tube output) Extremities: Other (Diffuse edema) Skin: No rashes, No significant lesion Labs LABS Laboratory Tests Test 10/22/19 18:09 10/23/19 00:20 10/23/19 05:57 10/23/19 06:00 Glucose (Fingerstick) 127 mg/dL (70-99) 126 mg/dL (70-99) 120 mg/dL (70-99) Sodium Level 134 mmol/L (136-145) Potassium Level 4.7 mmol/L (3.5-5.1) Chloride Level 102 mmol/L (98-107) Carbon Dioxide Level 29 mmol/L (21-32) Anion Gap 3 (6-14) Blood Urea Nitrogen 21 mg/dL (7-20) Creatinine 0.6 mg/dL (0.6-1.0) Estimated GFR (Cockcroft-Gault) 106.3 Glucose Level 126 mg/dL (70-99) Calcium Level 8.8 mg/dL (8.5-10.1) Test 10/23/19 12:49 Glucose (Fingerstick) 169 mg/dL (70-99) Assessment and Plan Assessmemt and Plan Problems Medical Problems: (1) Acute pancreatitis Status: Acute (2) Cholelithiasis Status: Acute Comment Review of Relevant I have reviewed the following items kolby (where applicable) has been applied. Labs Laboratory Tests Test 10/21/19 18:06 10/21/19 23:56 10/22/19 06:12 10/22/19 06:15 Glucose (Fingerstick) 143 mg/dL (70-99) 136 mg/dL (70-99) 141 mg/dL (70-99) White Blood Count 25.9 x10^3/uL (4.0-11.0) Red Blood Count 2.52 x10^6/uL (3.50-5.40) Hemoglobin 7.4 g/dL (12.0-15.5) Hematocrit 22.3 % (36.0-47.0) Mean Corpuscular Volume 88 fL (79-100) Mean Corpuscular Hemoglobin 30 pg (25-35) Mean Corpuscular Hemoglobin Concent 33 g/dL (31-37) Red Cell Distribution Width 15.1 % (11.5-14.5) Platelet Count 269 x10^3/uL (140-400) Neutrophils (%) (Auto) 89 % (31-73) Lymphocytes (%) (Auto) 5 % (24-48) Monocytes (%) (Auto) 5 % (0-9) Eosinophils (%) (Auto) 1 % (0-3) Basophils (%) (Auto) 0 % (0-3) Neutrophils # (Auto) 23.0 x10^3/uL (1.8-7.7) Lymphocytes # (Auto) 1.3 x10^3/uL (1.0-4.8) Monocytes # (Auto) 1.2 x10^3/uL (0.0-1.1) Eosinophils # (Auto) 0.2 x10^3/uL (0.0-0.7) Basophils # (Auto) 0.1 x10^3/uL (0.0-0.2) Sodium Level 132 mmol/L (136-145) Potassium Level 4.2 mmol/L (3.5-5.1) Chloride Level 101 mmol/L (98-107) Carbon Dioxide Level 29 mmol/L (21-32) Anion Gap 2 (6-14) Blood Urea Nitrogen 20 mg/dL (7-20) Creatinine 0.5 mg/dL (0.6-1.0) Estimated GFR (Cockcroft-Gault) 131.1 BUN/Creatinine Ratio 40 (6-20) Glucose Level 130 mg/dL (70-99) Calcium Level 8.6 mg/dL (8.5-10.1) Total Bilirubin 0.6 mg/dL (0.2-1.0) Aspartate Amino Transf (AST/SGOT) 28 U/L (15-37) Alanine Aminotransferase (ALT/SGPT) 68 U/L (14-59) Alkaline Phosphatase 210 U/L (46-116) Total Protein 3.2 g/dL (6.4-8.2) Albumin 0.9 g/dL (3.4-5.0) Albumin/Globulin Ratio 0.4 (1.0-1.7) Test 10/22/19 11:50 10/22/19 18:09 10/23/19 00:20 10/23/19 05:57 Glucose (Fingerstick) 149 mg/dL (70-99) 127 mg/dL (70-99) 126 mg/dL (70-99) 120 mg/dL (70-99) Test 10/23/19 06:00 10/23/19 12:49 Sodium Level 134 mmol/L (136-145) Potassium Level 4.7 mmol/L (3.5-5.1) Chloride Level 102 mmol/L (98-107) Carbon Dioxide Level 29 mmol/L (21-32) Anion Gap 3 (6-14) Blood Urea Nitrogen 21 mg/dL (7-20) Creatinine 0.6 mg/dL (0.6-1.0) Estimated GFR (Cockcroft-Gault) 106.3 Glucose Level 126 mg/dL (70-99) Calcium Level 8.8 mg/dL (8.5-10.1) Glucose (Fingerstick) 169 mg/dL (70-99) Laboratory Tests Test 10/22/19 18:09 10/23/19 00:20 10/23/19 05:57 10/23/19 06:00 Glucose (Fingerstick) 127 mg/dL (70-99) 126 mg/dL (70-99) 120 mg/dL (70-99) Sodium Level 134 mmol/L (136-145) Potassium Level 4.7 mmol/L (3.5-5.1) Chloride Level 102 mmol/L (98-107) Carbon Dioxide Level 29 mmol/L (21-32) Anion Gap 3 (6-14) Blood Urea Nitrogen 21 mg/dL (7-20) Creatinine 0.6 mg/dL (0.6-1.0) Estimated GFR (Cockcroft-Gault) 106.3 Glucose Level 126 mg/dL (70-99) Calcium Level 8.8 mg/dL (8.5-10.1) Test 10/23/19 12:49 Glucose (Fingerstick) 169 mg/dL (70-99) Microbiology 10/18/19 Gram Stain - Final, Resulted 10/18/19 Aerobic and Anaerobic Culture - Preliminary, Resulted 10/18/19 Antimicrobic Susceptibility - Preliminary, Resulted 10/16/19 Blood Culture - Final, Complete NO GROWTH AFTER 5 DAYS 10/03/19 Gram Stain - Final, Complete 10/03/19 Aerobic and Anaerobic Culture - Final, Complete 10/01/19 Gram Stain Evaluation - Final, Complete 10/01/19 Respiratory Culture - Final, Complete 10/01/19 Antimicrobic Susceptibility - Final, Complete 09/25/19 Urine Culture - Final, Complete 09/17/19 Gram Stain - Final, Complete 09/17/19 Aerobic Culture - Final, Complete Medications Current Medications Sodium Chloride 1,000 ml @ 1,000 mls/hr Q1H IV Last administered on 07/04/19at 03:00; Start 07/04/19 at 03:00; Stop 07/04/19 at 03:59; Status DC Ondansetron HCl (Zofran) 4 mg 1X ONCE IVP Last administered on 07/04/19at 03:27; Start 07/04/19 at 03:00; Stop 07/04/19 at 03:01; Status DC Morphine Sulfate (Morphine Sulfate) 4 mg 1X ONCE IV ; Start 07/04/19 at 03:00; Stop 07/04/19 at 03:01; Status Cancel Ketorolac Tromethamine (Toradol 30mg Vial) 30 mg 1X ONCE IV Last administered on 07/04/19at 02:54; Start 07/04/19 at 03:00; Stop 07/04/19 at 03:01; Status DC Fentanyl Citrate (Fentanyl 2ml Vial) 25 mcg 1X ONCE IVP Last administered on 07/04/19at 03:23; Start 07/04/19 at 03:30; Stop 07/04/19 at 03:31; Status DC Fentanyl Citrate (Fentanyl 2ml Vial) 100 mcg STK-MED ONCE .ROUTE ; Start 07/04/19 at 03:18; Stop 07/04/19 at 03:18; Status DC Iohexol (Omnipaque 350 Mg/ml) 90 ml 1X ONCE IV Last administered on 07/04/19at 03:25; Start 07/04/19 at 03:30; Stop 07/04/19 at 03:31; Status DC Info (CONTRAST GIVEN -- Rx MONITORING) 1 each PRN DAILY PRN MC SEE COMMENTS; Start 07/04/19 at 03:30; Stop 07/06/19 at 03:29; Status DC Hydromorphone HCl (Dilaudid) 0.5 mg 1X ONCE IV Last administered on 07/04/19at 03:55; Start 07/04/19 at 04:30; Stop 07/04/19 at 04:32; Status DC Ondansetron HCl (Zofran) 4 mg PRN Q8HRS PRN IV NAUSEA/VOMITING 1ST CHOICE; Start 07/04/19 at 05:00; Stop 07/04/19 at 09:27; Status DC Morphine Sulfate (Morphine Sulfate) 2 mg PRN Q2HR PRN IV SEVERE PAIN 7-10 Last administered on 07/05/19at 12:26; Start 07/04/19 at 05:00; Stop 07/05/19 at 14:15; Status DC Sodium Chloride 1,000 ml @ 125 mls/hr Q8H IV Last administered on 07/04/19at 20:56; Start 07/04/19 at 05:00; Stop 07/05/19 at 04:59; Status DC Hydromorphone HCl (Dilaudid) 0.5 mg PRN Q3HRS PRN IV SEVERE PAIN 7-10 Last administered on 07/05/19at 10:06; Start 07/04/19 at 05:00; Stop 07/05/19 at 12:01; Status DC Piperacillin Sod/ Tazobactam Sod 4.5 gm/Sodium Chloride 100 ml @ 200 mls/hr 1X ONCE IV Last administered on 07/04/19at 05:44; Start 07/04/19 at 06:00; Stop 07/04/19 at 06:29; Status DC Ondansetron HCl (Zofran) 4 mg PRN Q4HRS PRN IV NAUSEA/VOMITING 1ST CHOICE Last administered on 10/15/19at 13:37; Start 07/04/19 at 09:30 Insulin Human Lispro (HumaLOG) 0-9 UNITS Q6HRS SQ Last administered on 10/23/19at 12:50; Start 07/04/19 at 09:30 Dextrose (Dextrose 50%-Water Syringe) 12.5 gm PRN Q15MIN PRN IV SEE COMMENTS; Start 07/04/19 at 09:30 Pantoprazole Sodium (PROTONIX VIAL for IV PUSH) 40 mg DAILYAC IVP Last administered on 10/23/19at 08:19; Start 07/04/19 at 11:30 Prochlorperazine Edisylate (Compazine) 10 mg PRN Q6HRS PRN IV NAUSEA/VOMITING, 2nd CHOICE Last administered on 10/15/19at 10:53; Start 07/04/19 at 17:45 Atenolol (Tenormin) 100 mg DAILY PO ; Start 07/05/19 at 09:00; Stop 07/04/19 at 20:08; Status DC Metoprolol Tartrate (Lopressor Vial) 2.5 mg Q6HRS IVP Last administered on 07/05/19at 05:51; Start 07/04/19 at 20:15; Stop 07/05/19 at 10:02; Status DC Metoprolol Tartrate (Lopressor Vial) 5 mg Q6HRS IVP Last administered on 07/14/19at 00:12; Start 07/05/19 at 10:15; Stop 07/16/19 at 08:48; Status DC Hydromorphone HCl (Dilaudid) 1 mg PRN Q3HRS PRN IV SEVERE PAIN 7-10 Last administered on 07/11/19at 05:13; Start 07/05/19 at 12:00; Stop 07/19/19 at 00:25; Status DC Lidocaine HCl (Buffered Lidocaine 1%) 3 ml STK-MED ONCE .ROUTE ; Start 07/05/19 at 12:55; Stop 07/05/19 at 12:56; Status DC Albumin Human 500 ml @ 125 mls/hr 1X ONCE IV Last administered on 07/05/19at 14:33; Start 07/05/19 at 14:30; Stop 07/05/19 at 18:32; Status DC Norepinephrine Bitartrate 8 mg/ Dextrose 258 ml @ 17.299 mls/ hr CONT PRN IV PER PROTOCOL Last administered on 08/02/19at 12:48; Start 07/05/19 at 15:30; Stop 08/05/19 at 09:19; Status DC Sodium Chloride 1,000 ml @ 125 mls/hr Q8H IV Last administered on 07/05/19at 21:04; Start 07/05/19 at 16:00; Stop 07/06/19 at 02:42; Status DC Albumin Human 500 ml @ 125 mls/hr PRN BID PRN IV After every 2L NSS & BP < 90mm Last administered on 10/18/19at 16:06; Start 07/05/19 at 16:00; Stop 10/21/19 at 09:30; Status DC Iohexol (Omnipaque 300 Mg/ml) 60 ml 1X ONCE IV Last administered on 07/05/19at 17:20; Start 07/05/19 at 17:00; Stop 07/05/19 at 17:01; Status DC Info (CONTRAST GIVEN -- Rx MONITORING) 1 each PRN DAILY PRN MC SEE COMMENTS; Start 07/05/19 at 17:00; Stop 07/07/19 at 16:59; Status DC Meropenem 1 gm/ Sodium Chloride 100 ml @ 200 mls/hr Q8HRS IV Last administered on 07/06/19at 05:45; Start 07/05/19 at 20:00; Stop 07/06/19 at 08:48; Status DC Furosemide (Lasix) 40 mg 1X ONCE IVP Last administered on 07/05/19at 22:12; Start 07/05/19 at 22:30; Stop 07/05/19 at 22:31; Status DC Calcium Chloride 1000 mg/Sodium Chloride 110 ml @ 220 mls/hr 1X ONCE IV Last administered on 07/05/19at 22:11; Start 07/05/19 at 22:30; Stop 07/05/19 at 22:59; Status DC Albuterol Sulfate (Ventolin Neb Soln) 2.5 mg 1X ONCE NEB Last administered on 07/06/19at 00:56; Start 07/05/19 at 22:30; Stop 07/05/19 at 22:31; Status DC Insulin Human Regular (HumuLIN R VIAL) 5 unit 1X ONCE IV Last administered on 07/05/19at 22:14; Start 07/05/19 at 22:30; Stop 07/05/19 at 22:31; Status DC Magnesium Sulfate 50 ml @ 25 mls/hr 1X ONCE IV Last administered on 07/06/19at 02:57; Start 07/06/19 at 03:00; Stop 07/06/19 at 04:59; Status DC Calcium Gluconate 1000 mg/Sodium Chloride 110 ml @ 220 mls/hr 1X ONCE IV Last administered on 07/06/19at 02:46; Start 07/06/19 at 03:00; Stop 07/06/19 at 03:29; Status DC Sodium Chloride 1,000 ml @ 200 mls/hr Q5H IV Last administered on 07/06/19at 0 2:46; Start 07/06/19 at 03:00; Stop 07/06/19 at 10:21; Status DC Calcium Gluconate 1000 mg/Sodium Chloride 110 ml @ 220 mls/hr 1X ONCE IV Last administered on 07/06/19at 03:21; Start 07/06/19 at 03:30; Stop 07/06/19 at 03:59; Status DC Sodium Bicarbonate 50 meq/Sodium Chloride 1,050 ml @ 75 mls/hr Q14H IV Last administered on 07/10/19at 21:10; Start 07/06/19 at 07:30; Stop 07/11/19 at 10:28; Status DC Calcium Gluconate 2000 mg/Sodium Chloride 120 ml @ 220 mls/hr 1X ONCE IV Last administered on 07/06/19at 09:05; Start 07/06/19 at 07:30; Stop 07/06/19 at 08:02; Status DC Lidocaine HCl (Xylocaine-Mpf 1% 2ml Vial) 2 ml STK-MED ONCE .ROUTE ; Start 07/06/19 at 08:47; Stop 07/06/19 at 08:47; Status DC Meropenem 500 mg/ Sodium Chloride 50 ml @ 100 mls/hr Q12HR IV Last administered on 07/11/19at 21:01; Start 07/06/19 at 18:00; Stop 07/12/19 at 07:58; Status DC Lidocaine HCl (Buffered Lidocaine 1%) 3 ml STK-MED ONCE .ROUTE ; Start 07/06/19 at 09:46; Stop 07/06/19 at 09:46; Status DC Lidocaine HCl (Buffered Lidocaine 1%) 6 ml 1X ONCE INJ Last administered on 07/06/19at 10:26; Start 07/06/19 at 10:15; Stop 07/06/19 at 10:16; Status DC Info (Tpn Per Pharmacy) 1 each PRN DAILY PRN MC SEE COMMENTS Last administered on 10/23/19at 09:19; Start 07/06/19 at 12:00 Sodium Chloride 1,000 ml @ 1,000 mls/hr Q1H PRN IV hypotension; Start 07/06/19 at 12:07; Stop 07/06/19 at 18:06; Status DC Diphenhydramine HCl (Benadryl) 25 mg 1X PRN PRN IV ITCHING; Start 07/06/19 at 12:15; Stop 07/07/19 at 12:14; Status DC Diphenhydramine HCl (Benadryl) 25 mg 1X PRN PRN IV ITCHING; Start 07/06/19 at 12:15; Stop 07/07/19 at 12:14; Status DC Sodium Chloride 1,000 ml @ 400 mls/hr Q2H30M PRN IV PATENCY; Start 07/06/19 at 12:07; Stop 07/07/19 at 00:06; Status DC Info (PHARMACY MONITORING -- do not chart) 1 each PRN DAILY PRN MC SEE COMMENTS; Start 07/06/19 at 12:15; Stop 07/08/19 at 08:13; Status DC Sodium Chloride 90 meq/Calcium Gluconate 10 meq/ Multivitamins 10 ml/Chromium/ Copper/Manganese/ Seleni/Zn 1 ml/ Total Parenteral Nutrition/Amino Acids/Dextrose/ Fat Emulsion Intravenous 55.005 ml @ 2.292 mls/hr TPN CONT IV ; Start 07/06/19 at 22:00; Stop 07/06/19 at 12:33; Status DC Info (Tpn Per Pharmacy) 1 each PRN DAILY PRN MC SEE COMMENTS; Start 07/06/19 at 12:30; Status UNV Sodium Chloride 90 meq/Calcium Gluconate 10 meq/ Multivitamins 10 ml/Chromium/ Copper/Manganese/ Seleni/Zn 0.5 ml/ Total Parenteral Nutrition/Amino Acids/Dextrose/ Fat Emulsion Intravenous 1,512 ml @ 63 mls/hr TPN CONT IV Last administered on 07/06/19at 22:06; Start 07/06/19 at 22:00; Stop 07/07/19 at 21:59; Status DC Calcium Carbonate/ Glycine (Tums) 500 mg PRN AFTMEALHC PRN PO INDIGESTION; Start 07/06/19 at 17:45; Stop 08/31/19 at 10:25; Status DC Calcium Gluconate (Calcium Gluconate) 2,000 mg 1X ONCE IVP Last administered on 07/07/19at 02:19; Start 07/07/19 at 02:15; Stop 07/07/19 at 02:16; Status DC Calcium Chloride 3000 mg/Sodium Chloride 1,030 ml @ 50 mls/hr [id number] IV Last administered on 07/09/19at 02:17; Start 07/07/19 at 08:00; Stop 07/09/19 at 1 5:23; Status DC Lorazepam (Ativan Inj) 1 mg PRN Q4HRS PRN IVP ANXIETY / AGITATION, 2nd choic Last administered on 08/05/19at 03:51; Start 07/07/19 at 09:00; Stop 08/05/19 at 09:19; Status DC Sodium Chloride 1,000 ml @ 1,000 mls/hr Q1H PRN IV hypotension; Start 07/07/19 at 08:56; Stop 07/07/19 at 14:55; Status DC Albumin Human 200 ml @ 200 mls/hr 1X PRN PRN IV Hypotension; Start 07/07/19 at 09:00; Stop 07/07/19 at 14:59; Status DC Diphenhydramine HCl (Benadryl) 25 mg 1X PRN PRN IV ITCHING; Start 07/07/19 at 09:00; Stop 07/08/19 at 08:59; Status DC Diphenhydramine HCl (Benadryl) 25 mg 1X PRN PRN IV ITCHING; Start 07/07/19 at 09:00; Stop 07/08/19 at 08:59; Status DC Sodium Chloride 1,000 ml @ 400 mls/hr Q2H30M PRN IV PATENCY; Start 07/07/19 at 08:56; Stop 07/07/19 at 20:55; Status DC Info (PHARMACY MONITORING -- do not chart) 1 each PRN DAILY PRN MC SEE COMMENTS; Start 07/07/19 at 09:00; Status UNV Info (PHARMACY MONITORING -- do not chart) 1 each PRN DAILY PRN MC SEE COMMENTS; Start 07/07/19 at 09:00; Stop 07/08/19 at 08:13; Status DC Digoxin (Lanoxin) 500 mcg 1X ONCE IV Last administered on 07/07/19at 10:04; Start 07/07/19 at 10:00; Stop 07/07/19 at 10:01; Status DC Digoxin (Lanoxin) 125 mcg 1X ONCE IV Last administered on 07/07/19at 17:10; Start 07/07/19 at 18:00; Stop 07/07/19 at 18:01; Status DC Magnesium Sulfate 100 ml @ 25 mls/hr 1X ONCE IV Last administered on 07/07/19at 12:48; Start 07/07/19 at 13:00; Stop 07/07/19 at 16:59; Status DC Sodium Chloride 90 meq/Magnesium Sulfate 10 meq/ Calcium Gluconate 20 meq/ Multivitamins 10 ml/Chromium/ Copper/Manganese/ Seleni/Zn 0.5 ml/ Total Parenteral Nutrition/Amino Acids/Dextrose/ Fat Emulsion Intravenous 1,512 ml @ 63 mls/hr TPN CONT IV Last administered on 07/07/19at 22:25; Start 07/07/19 at 22:00; Stop 07/08/19 at 21:59; Status DC Sodium Chloride 1,000 ml @ 1,000 mls/hr Q1H PRN IV hypotension; Start 07/08/19 at 08:05; Stop 07/08/19 at 14:04; Status DC Albumin Human 200 ml @ 200 mls/hr 1X ONCE IV Last administered on 07/08/19at 08:57; Start 07/08/19 at 08:15; Stop 07/08/19 at 09:14; Status DC Diphenhydramine HCl (Benadryl) 25 mg 1X PRN PRN IV ITCHING; Start 07/08/19 at 08:15; Stop 07/09/19 at 08:14; Status DC Diphenhydramine HCl (Benadryl) 25 mg 1X PRN PRN IV ITCHING; Start 07/08/19 at 08:15; Stop 07/09/19 at 08:14; Status DC Sodium Chloride 1,000 ml @ 400 mls/hr Q2H30M PRN IV PATENCY; Start 07/08/19 at 08:05; Stop 07/08/19 at 20:04; Status DC Info (PHARMACY MONITORING -- do not chart) 1 each PRN DAILY PRN MC SEE COMMENTS; Start 07/08/19 at 08:15; Stop 07/12/19 at 07:57; Status DC Sodium Chloride 90 meq/Potassium Chloride 15 meq/ Potassium Phosphate 10 mmol/ Magnesium Sulfate 10 meq/Calcium Gluconate 20 meq/ Multivitamins 10 ml/Chromium/ Copper/Manganese/ Seleni/Zn 0.5 ml/ Total Parenteral Nutrition/Amino Acids/Dextrose/ Fat Emulsion Intravenous 1,512 ml @ 63 mls/hr TPN CONT IV Last administered on 07/08/19at 21:01; Start 07/08/19 at 22:00; Stop 07/09/19 at 21:59; Status DC Potassium Chloride/Water 100 ml @ 100 mls/hr 1X ONCE IV Last administered on 07/08/19at 14:09; Start 07/08/19 at 14:00; Stop 07/08/19 at 14:59; Status DC Benzocaine (Hurricaine One) 1 spray 1X ONCE MM Last administered on 07/08/19at 16:38; Start 07/08/19 at 14:30; Stop 07/08/19 at 14:31; Status DC Lidocaine HCl (Glydo (Lidocaine) Jelly) 1 ramu 1X ONCE MM Last administered on 07/08/19at 16:38; Start 07/08/19 at 14:30; Stop 07/08/19 at 14:31; Status DC Linezolid/Dextrose 300 ml @ 300 mls/hr Q12HR IV Last administered on 07/14/19at 21:04; Start 07/08/19 at 20:00; Stop 07/15/19 at 07:50; Status DC Acetaminophen (Tylenol) 650 mg PRN Q6HRS PRN PO MILD PAIN / TEMP; Start 07/09/19 at 03:30; Stop 07/09/19 at 03:36; Status DC Acetaminophen (Tylenol) 650 mg PRN Q6HRS PRN PEG MILD PAIN / TEMP Last administered on 08/04/19at 19:56; Start 07/09/19 at 03:36; Stop 08/31/19 at 10:25; Status DC Sodium Chloride 1,000 ml @ 1,000 mls/hr Q1H PRN IV hypotension; Start 07/09/19 at 07:50; Stop 07/09/19 at 13:49; Status DC Albumin Human 200 ml @ 200 mls/hr 1X PRN PRN IV Hypotension; Start 07/09/19 at 08:00; Stop 07/09/19 at 13:59; Status DC Sodium Chloride (Normal Saline Flush) 10 ml 1X PRN PRN IV AP catheter pack; Start 07/09/19 at 08:00; Stop 07/10/19 at 07:59; Status DC Sodium Chloride (Normal Saline Flush) 10 ml 1X PRN PRN IV [employer] catheter pack; Start 07/09/19 at 08:00; Stop 07/10/19 at 07:59; Status DC Sodium Chloride 1,000 ml @ 400 mls/hr Q2H30M PRN IV PATENCY; Start 07/09/19 at 07:50; Stop 07/09/19 at 19:49; Status DC Info (PHARMACY MONITORING -- do not chart) 1 each PRN DAILY PRN MC SEE COMMENTS; Start 07/09/19 at 08:00; Status UNV Info (PHARMACY MONITORING -- do not chart) 1 each PRN DAILY PRN MC SEE COMMENTS; Start 07/09/19 at 08:00; Stop 07/11/19 at 08:25; Status DC Sodium Chloride 90 meq/Potassium Chloride 15 meq/ Potassium Phosphate 10 mmol/ Magnesium Sulfate 10 meq/Calcium Gluconate 20 meq/ Multivitamins 10 ml/Chromium/ Copper/Manganese/ Seleni/Zn 0.5 ml/ Total Parenteral Nutrition/Amino Acids/Dextrose/ Fat Emulsion Intravenous 1,512 ml @ 63 mls/hr TPN CONT IV Last administered on 07/09/19at 20:57; Start 07/09/19 at 22:00; Stop 07/10/19 at 21:59; Status DC Sodium Chloride 90 meq/Potassium Chloride 15 meq/ Potassium Phosphate 15 mmol/ Magnesium Sulfate 10 meq/Calcium Gluconate 20 meq/ Multivitamins 10 ml/Chromium/ Copper/Manganese/ Seleni/Zn 0.5 ml/ Total Parenteral Nutrition/Amino Acids/Dextrose/ Fat Emulsion Intravenous 1,512 ml @ 63 mls/hr TPN CONT IV ; Start 07/10/19 at 22:00; Stop 07/10/19 at 14:16; Status DC Sodium Chloride 90 meq/Potassium Chloride 15 meq/ Potassium Phosphate 15 mmol/ Magnesium Sulfate 10 meq/Calcium Gluconate 20 meq/ Multivitamins 10 ml/Chromium/ Copper/Manganese/ Seleni/Zn 0.5 ml/ Total Parenteral Nutrition/Amino Acids/Dextrose/ Fat Emulsion Intravenous 1,200 ml @ 50 mls/hr TPN CONT IV ; Start 07/10/19 at 22:00; Stop 07/10/19 at 14:17; Status DC Sodium Chloride 90 meq/Potassium Chloride 15 meq/ Potassium Phosphate 10 mmol/ Magnesium Sulfate 10 meq/Calcium Gluconate 20 meq/ Multivitamins 10 ml/Chromium/ Copper/Manganese/ Seleni/Zn 0.5 ml/ Total Parenteral Nutrition/Amino Acids/Dextrose/ Fat Emulsion Intravenous 1,200 ml @ 50 mls/hr TPN CONT IV Las t administered on 07/10/19at 23:29; Start 07/10/19 at 22:00; Stop 07/11/19 at 21:59; Status DC Sodium Chloride 1,000 ml @ 1,000 mls/hr Q1H PRN IV hypotension; Start 07/11/19 at 07:28; Stop 07/11/19 at 13:27; Status DC Albumin Human 200 ml @ 200 mls/hr 1X ONCE IV Last administered on 07/11/19at 08:51; Start 07/11/19 at 07:30; Stop 07/11/19 at 08:29; Status DC Diphenhydramine HCl (Benadryl) 25 mg 1X PRN PRN IV ITCHING; Start 07/11/19 at 07:30; Stop 07/12/19 at 07:29; Status DC Diphenhydramine HCl (Benadryl) 25 mg 1X PRN PRN IV ITCHING; Start 07/11/19 at 07:30; Stop 07/12/19 at 07:29; Status DC Sodium Chloride 1,000 ml @ 400 mls/hr Q2H30M PRN IV PATENCY; Start 07/11/19 at 07:28; Stop 07/11/19 at 19:27; Status DC Info (PHARMACY MONITORING -- do not chart) 1 each PRN DAILY PRN MC SEE COMMENTS; Start 07/11/19 at 07:30; Stop 07/22/19 at 13:01; Status DC Metronidazole 100 ml @ 100 mls/hr Q6HRS IV Last administered on 07/27/19at 06:26; Start 07/11/19 at 08:30; Stop 07/27/19 at 09:58; Status DC Micafungin Sodium 100 mg/Dextrose 100 ml @ 100 mls/hr Q24H IV Last administered on 08/18/19at 08:18; Start 07/11/19 at 09:00; Stop 08/18/19 at 20:58; Status DC Propofol 0 ml @ As Directed STK-MED ONCE IV ; Start 07/11/19 at 07:53; Stop 07/11/19 at 07:53; Status DC Etomidate (Amidate) 20 mg STK-MED ONCE IV ; Start 07/11/19 at 07:53; Stop 07/11/19 at 07:54; Status DC Midazolam HCl (Versed) 5 mg STK-MED ONCE .ROUTE ; Start 07/11/19 at 07:57; Stop 07/11/19 at 07:57; Status DC Fentanyl Citrate 30 ml @ 0 mls/hr CONT PRN IV SEE PROTOCOL Last administered on 08/05/19at 06:12; Start 07/11/19 at 08:15; Stop 08/05/19 at 09:19; Status DC Artificial Tears (Artificial Tears) 1 drop PRN Q1HR PRN OU DRY EYE, 1st choice; Start 07/11/19 at 08:15; Stop 08/17/19 at 05:31; Status DC Midazolam HCl 50 mg/Sodium Chloride 50 ml @ 0 mls/hr CONT PRN IV SEE PROTOCOL Last administered on 07/14/19at 22:39; Start 07/11/19 at 08:15; Stop 07/16/19 at 15:59; Status DC Etomidate (Amidate) 8 mg 1X ONCE IV Last administered on 07/11/19at 08:33; S tart 07/11/19 at 08:30; Stop 07/11/19 at 08:31; Status DC Succinylcholine Chloride (Anectine) 120 mg 1X ONCE IV Last administered on 07/11/19at 08:34; Start 07/11/19 at 08:30; Stop 07/11/19 at 08:31; Status DC Midazolam HCl (Versed) 5 mg 1X ONCE IV ; Start 07/11/19 at 08:30; Stop 07/11/19 at 08:31; Status DC Potassium Chloride 15 meq/ Bicarbonate Dialysis Soln w/ out KCl 5,007.5 ml @ 1,000 mls/ hr Q5H1M IV Last administered on 07/12/19at 11:11; Start 07/11/19 at 12:00; Stop 07/12/19 at 11:15; Status DC Potassium Chloride 15 meq/ Bicarbonate Dialysis Soln w/ out KCl 5,007.5 ml @ 1,000 mls/ hr Q5H1M IV Last administered on 07/12/19at 11:12; Start 07/11/19 at 12:00; Stop 07/12/19 at 11:17; Status DC Potassium Chloride 15 meq/ Bicarbonate Dialysis Soln w/ out KCl 5,007.5 ml @ 1,000 mls/ hr Q5H1M IV Last administered on 07/12/19at 11:11; Start 07/11/19 at 12:00; Stop 07/12/19 at 11:19; Status DC Sodium Chloride 90 meq/Potassium Chloride 15 meq/ Potassium Phosphate 10 mmol/ Magnesium Sulfate 10 meq/Calcium Gluconate 20 meq/ Multivitamins 10 ml/Chromium/ Copper/Manganese/ Seleni/Zn 0.5 ml/ Total Parenteral Nutrition/Amino Acids/Dex trose/ Fat Emulsion Intravenous 1,400 ml @ 58.333 mls/ hr TPN CONT IV Last administered on 07/11/19at 21:42; Start 07/11/19 at 22:00; Stop 07/12/19 at 21:59; Status DC Heparin Sodium (Porcine) (Heparin Sodium) 5,000 unit Q8HRS SQ Last administered on 07/16/19at 05:55; Start 07/11/19 at 15:00; Stop 07/16/19 at 13:28; Status DC Meropenem 500 mg/ Sodium Chloride 50 ml @ 100 mls/hr Q6HRS IV Last administered on 07/13/19at 06:00; Start 07/12/19 at 09:00; Stop 07/13/19 at 07:29; Status DC Potassium Phosphate 20 mmol/ Sodium Chloride 106.6667 ml @ 51.667 m... 1X ONCE IV Last administered on 07/12/19at 11:22; Start 07/12/19 at 10:15; Stop 07/12/19 at 12:18; Status DC Acetaminophen (Tylenol Supp) 650 mg PRN Q6HRS PRN [place] MILD PAIN / TEMP > 100.3'F Last administered on 10/17/19at 18:16; Start 07/12/19 at 10:30 Potassium Chloride/Water 100 ml @ 100 mls/hr Q1H IV Last administered on at 12:12; Start 07/12/19 at 11:00; Stop 07/12/19 at 12:59; Status DC Potassium Chloride 20 meq/ Bicarbonate Dialysis Soln w/ out KCl 5,010 ml @ 1,000 mls/hr Q5H1M IV Last administered on 07/13/19at 08:48; Start 07/12/19 at 12:00; Stop 07/13/19 at 13:03; Status DC Potassium Chloride 20 meq/ Bicarbonate Dialysis Soln w/ out KCl 5,010 ml @ 1,000 mls/hr Q5H1M IV Last administered on 07/17/19at 14:52; Start 07/12/19 at 11:30; Stop 07/17/19 at 19:59; Status DC Potassium Chloride 20 meq/ Bicarbonate Dialysis Soln w/ out KCl 5,010 ml @ 1,000 mls/hr Q5H1M IV Last administered on 07/17/19at 14:53; Start 07/12/19 at 11:30; Stop 07/17/19 at 19:59; Status DC Sodium Chloride 90 meq/Potassium Chloride 15 meq/ Potassium Phosphate 15 mmol/ Magnesium Sulfate 10 meq/Calcium Gluconate 15 meq/ Multivitamins 10 ml/Chromium/ Copper/Manganese/ Seleni/Zn 0.5 ml/ Total Parenteral Nutrition/Amino Acids/Dextrose/ Fat Emulsion Intravenous 1,400 ml @ 58.333 mls/ hr TPN CONT IV Last administered on 07/12/19at 22:17; Start 07/12/19 at 22:00; Stop 07/13/19 at 21:59; Status DC Cefepime HCl (Maxipime) 2 gm Q12HR IVP Last administered on 07/26/19at 20:56; Start 07/13/19 at 09:00; Stop 07/27/19 at 09:58; Status DC Daptomycin 500 mg/ Sodium Chloride 50 ml @ 100 mls/hr Q48H IV Last administered on 07/29/19at 09:57; Start 07/13/19 at 08:30; Stop 07/29/19 at 10:07; Status DC Lidocaine HCl (Buffered Lidocaine 1%) 3 ml 1X ONCE INJ Last administered on 07/13/19at 10:27; Start 07/13/19 at 10:30; Stop 07/13/19 at 10:31; Status DC Potassium Phosphate 20 mmol/ Sodium Chloride 106.6667 ml @ 51.667 m... 1X ONCE IV Last administered on 07/13/19at 12:51; Start 07/13/19 at 13:00; Stop 07/13/19 at 15:03; Status DC Sodium Chloride 90 meq/Potassium Chloride 15 meq/ Potassium Phosphate 18 mmol/ M agnesium Sulfate 8 meq/Calcium Gluconate 15 meq/ Multivitamins 10 ml/Chromium/ Copper/Manganese/ Seleni/Zn 0.5 ml/ Total Parenteral Nutrition/Amino Acids/Dextrose/ Fat Emulsion Intravenous 1,400 ml @ 58.333 mls/ hr TPN CONT IV Last administered on 07/13/19at 22:16; Start 07/13/19 at 22:00; Stop 07/14/19 at 21:59; Status DC Potassium Chloride 20 meq/ Bicarbonate Dialysis Soln w/ out KCl 5,010 ml @ 1,000 mls/hr Q5H1M IV Last administered on 07/17/19at 14:54; Start 07/13/19 at 16:00; Stop 07/17/19 at 19:59; Status DC Multi-Ingred Cream/Lotion/Oil/ Oint (Artificial Tears Eye Ointment) 1 ramu PRN Q1HR PRN OU DRY EYE, 2nd choice Last administered on 08/01/19at 08:19; Start 07/13/19 at 17:30; Stop 09/21/19 at 14:39; Status DC Sodium Chloride 90 meq/Potassium Chloride 15 meq/ Potassium Phosphate 18 mmol/ Magnesium Sulfate 8 meq/Calcium Gluconate 15 meq/ Multivitamins 10 ml/Chromium/ Copper/Manganese/ Seleni/Zn 0.5 ml/ Total Parenteral Nutrition/Amino Acids/Dextrose/ Fat Emulsion Intravenous 1,400 ml @ 58.333 mls/ hr TPN CONT IV Last administered on 07/14/19at 22:00; Start 07/14/19 at 22:00; Stop 07/15/19 at 21:59; Status DC Albumin Human 500 ml @ 125 mls/hr 1X ONCE IV ; Start 07/14/19 at 14:15; Stop 07/14/19 at 18:14; Status DC Sodium Chloride 90 meq/Potassium Chloride 15 meq/ Potassium Phosphate 18 mmol/ Magnesium Sulfate 8 meq/Calcium Gluconate 15 meq/ Multivitamins 10 ml/Chromium/ Copper/Manganese/ Seleni/Zn 0.5 ml/ Insulin Human Regular 10 unit/ Total Parenteral Nutrition/Amino Acids/Dextrose/ Fat Emulsion Intravenous 1,400 ml @ 58.333 mls/ hr TPN CONT IV Last administered on 07/15/19at 21:43; Start 07/15/19 at 22:00; Stop 07/16/19 at 21:59; Status DC Lidocaine HCl (Buffered Lidocaine 1%) 3 ml STK-MED ONCE .ROUTE ; Start 07/13/19 at 10:00; Stop 07/15/19 at 13:57; Status DC Midazolam HCl 100 mg/Sodium Chloride 100 ml @ 7 mls/hr CONT PRN IV SEE PROTOCOL Last administered on 07/27/19at 15:35; Start 07/16/19 at 16:00; Stop 09/21/19 at 14:38; Status DC Sodium Chloride 90 meq/Potassium Chloride 15 meq/ Potassium Phosphate 18 mmol/ Magnesium Sulfate 8 meq/Calcium Gluconate 15 meq/ Multivitamins 10 ml/Chromium/ Copper/Manganese/ Seleni/Zn 0.5 ml/ Insulin Human Regular 15 unit/ Total Parenteral Nutrition/Amino Acids/Dextrose/ Fat Emulsion Intravenous 1,400 ml @ 58.333 mls/ hr TPN CONT IV Last administered on 07/16/19at 20:34; Start 07/16/19 at 22:00; Stop 07/17/19 at 21:59; Status DC Info (Icu Electrolyte Protocol) 1 ea CONT PRN PRN MC PER PROTOCOL; Start 07/17/19 at 13:15 Sodium Chloride 90 meq/Potassium Chloride 15 meq/ Potassium Phosphate 18 mmol/ Magnesium Sulfate 8 meq/Calcium Gluconate 15 meq/ Multivitamins 10 ml/Chromium/ Copper/Manganese/ Seleni/Zn 0.5 ml/ Insulin Human Regular 15 unit/ Total Parenteral Nutrition/Amino Acids/Dextrose/ Fat Emulsion Intravenous 1,400 ml @ 58.333 mls/ hr TPN CONT IV Last administered on 07/17/19at 22:05; Start 07/17/19 at 22:00; Stop 07/18/19 at 21:59; Status DC Potassium Chloride 15 meq/ Bicarbonate Dialysis Soln w/ out KCl 5,007.5 ml @ 1,000 mls/ hr Q5H1M IV Last administered on 07/20/19at 18:14; Start 07/17/19 at 20:00; Stop 07/21/19 at 13:08; Status DC Potassium Chloride 15 meq/ Bicarbonate Dialysis Soln w/ out KCl 5,007.5 ml @ 1,000 mls/ hr Q5H1M IV Last administered on 07/20/19at 18:14; Start 07/17/19 at 20:00; Stop 07/21/19 at 13:08; Status DC Potassium Chloride 15 meq/ Bicarbonate Dialysis Soln w/ out KCl 5,007.5 ml @ 1,000 mls/ hr Q5H1M IV Last administered on 07/20/19at 18:14; Start 07/17/19 at 20:00; Stop 07/21/19 at 13:08; Status DC Iohexol (Omnipaque 240 Mg/ml) 30 ml 1X ONCE PO Last administered on 07/18/19at 11:30; Start 07/18/19 at 11:30; Stop 07/18/19 at 11:33; Status DC Info (CONTRAST GIVEN -- Rx MONITORING) 1 each PRN DAILY PRN MC SEE COMMENTS; Start 07/18/19 at 11:45; Stop 07/20/19 at 11:44; Status DC Sodium Chloride 90 meq/Potassium Chloride 15 meq/ Potassium Phosphate 18 mmol/ Magnesium Sulfate 8 meq/Calcium Gluconate 15 meq/ Multivitamins 10 ml/Chromium/ Copper/Manganese/ Seleni/Zn 0.5 ml/ Insulin Human Regular 15 unit/ Total Parenteral Nutrition/Amino Acids/Dextrose/ Fat Emulsion Intravenous 1,400 ml @ 58.333 mls/ hr TPN CONT IV Last administered on 07/18/19at 21:47; Start 07/18/19 at 22:00; Stop 07/19/19 at 21:59; Status DC Sodium Chloride 90 meq/Potassium Chloride 15 meq/ Potassium Phosphate 18 mmol/ Magnesium Sulfate 8 meq/Calcium Gluconate 15 meq/ Multivitamins 10 ml/Chromium/ Copper/Manganese/ Seleni/Zn 0.5 ml/ Insulin Human Regular 20 unit/ Total Parenteral Nutrition/Amino Acids/Dextrose/ Fat Emulsion Intravenous 1,400 ml @ 58.333 mls/ hr TPN CONT IV Last administered on 07/19/19at 21:36; Start 07/19/19 at 22:00; Stop 07/20/19 at 21:59; Status DC Alteplase, Recombinant (Cathflo For Central Catheter Clearance) 1 mg 1X ONCE INT CAT Last administered on 07/19/19at 20:03; Start 07/19/19 at 19:30; Stop 07/19/19 at 19:46; Status DC Alteplase, Recombinant (Cathflo For Central Catheter Clearance) 1 mg 1X ONCE INT CAT Last administered on 07/19/19at 22:05; Start 07/19/19 at 22:00; Stop 07/19/19 at 22:01; Status DC Sodium Chloride 90 meq/Potassium Chloride 15 meq/ Potassium Phosphate 18 mmol/ Magnesium Sulfate 8 meq/Calcium Gluconate 15 meq/ Multivitamins 10 ml/Chromium/ Copper/Manganese/ Seleni/Zn 0.5 ml/ Insulin Human Regular 20 unit/ Total Parenteral Nutrition/Amino Acids/Dextrose/ Fat Emulsion Intravenous 1,400 ml @ 58.333 mls/ hr TPN CONT IV Last administered on 07/20/19at 21:30; Start 07/20/19 at 22:00; Stop 07/21/19 at 21:59; Status DC Dexmedetomidine HCl 400 mcg/ Sodium Chloride 100 ml @ 0 mls/hr CONT PRN IV ANXIETY / AGITATION Last administered on 09/17/19at 12:57; Start 07/21/19 at 08:15; Stop 09/17/19 at 18:31; Status DC Sodium Chloride 500 ml @ 500 mls/hr 1X PRN PRN IV ELEVATED BP, SEE COMMENTS; Start 07/21/19 at 08:15 Atropine Sulfate (ATROPINE 0.5mg SYRINGE) 0.5 mg PRN Q5MIN PRN IV SEE COMMENTS; Start 07/21/19 at 08:15 Furosemide (Lasix) 20 mg 1X ONCE IVP Last administered on 07/21/19at 08:19; Start 07/21/19 at 08:15; Stop 07/21/19 at 08:16; Status DC Lidocaine HCl (Buffered Lidocaine 1%) 3 ml STK-MED ONCE .ROUTE ; Start 07/21/19 at 08:39; Stop 07/21/19 at 08:39; Status DC Lidocaine HCl (Buffered Lidocaine 1%) 6 ml 1X ONCE INJ Last administered on 07/21/19at 09:05; Start 07/21/19 at 09:00; Stop 07/21/19 at 09:06; Status DC Sodium Chloride 90 meq/Potassium Chloride 15 meq/ Potassium Phosphate 18 mmol/ Magnesium Sulfate 8 meq/Calcium Gluconate 15 meq/ Multivitamins 10 ml/Chromium/ Copper/Manganese/ Seleni/Zn 0.5 ml/ Insulin Human Regular 20 unit/ Total Parenteral Nutrition/Amino Acids/Dextrose/ Fat Emulsion Intravenous 1,400 ml @ 58.333 mls/ hr TPN CONT IV Last administered on 07/21/19at 22:45; Start 07/21/19 at 22:00; Stop 07/22/19 at 21:59; Status DC Sodium Chloride 1,000 ml @ 1,000 mls/hr Q1H PRN IV hypotension; Start 07/22/19 at 07:30; Stop 07/22/19 at 13:29; Status DC Albumin Human 200 ml @ 200 mls/hr 1X PRN PRN IV Hypotension Last administered on 07/22/19at 09:36; Start 07/22/19 at 07:30; Stop 07/22/19 at 13:29; Status DC Sodium Chloride (Normal Saline Flush) 10 ml 1X PRN PRN IV AP catheter pack; Start 07/22/19 at 07:30; Stop 07/22/19 at 21:29; Status DC Sodium Chloride (Normal Saline Flush) 10 ml 1X PRN PRN IV [employer] catheter pack; Start 07/22/19 at 07:30; Stop 07/23/19 at 07:29; Status DC Sodium Chloride 1,000 ml @ 400 mls/hr Q2H30M PRN IV PATENCY; Start 07/22/19 at 07:30; Stop 07/22/19 at 19:29; Status DC Info (PHARMACY MONITORING -- do not chart) 1 each PRN DAILY PRN MC SEE COMMENTS; Start 07/22/19 at 07:30; Stop 07/22/19 at 13:02; Status DC Info (PHARMACY MONITORING -- do not chart) 1 each PRN DAILY PRN MC SEE COMMENTS; Start 07/22/19 at 07:30; Stop 07/24/19 at 12:45; Status DC Sodium Chloride 90 meq/Potassium Chloride 15 meq/ Potassium Phosphate 10 mmol/ Magnesium Sulfate 8 meq/Calcium Gluconate 15 meq/ Multivitamins 10 ml/Chromium/ Copper/Manganese/ Seleni/Zn 0.5 ml/ Insulin Human Regular 25 unit/ Total Parenteral Nutrition/Amino Acids/Dextrose/ Fat Emulsion Intravenous 1,400 ml @ 58.333 mls/ hr TPN CONT IV Last administered on 07/22/19at 22:19; Start 07/22/19 at 22:00; Stop 07/23/19 at 21:59; Status DC Heparin Sodium (Porcine) (Heparin Sodium) 5,000 unit Q12HR SQ Last administered on 08/14/19at 08:59; Start 07/22/19 at 21:00; Stop 08/14/19 at 10:05; Status DC Ondansetron HCl (Zofran) 4 mg PRN Q6HRS PRN IV NAUSEA/VOMITING; Start 07/25/19 at 07:00; Stop 07/26/19 at 06:59; Status DC Fentanyl Citrate (Fentanyl 2ml Vial) 25 mcg PRN Q5MIN PRN IV MILD PAIN 1-3; Start 07/25/19 at 07:00; Stop 07/26/19 at 06:59; Status DC Fentanyl Citrate (Fentanyl 2ml Vial) 50 mcg PRN Q5MIN PRN IV MODERATE TO SEVERE PAIN; Start 07/25/19 at 07:00; Stop 07/26/19 at 06:59; Status DC Ringer's Solution 1,000 ml @ 30 mls/hr Q24H IV ; Start 07/25/19 at 07:00; Stop 07/25/19 at 18:59; Status DC Lidocaine HCl (Xylocaine-Mpf 1% 2ml Vial) 2 ml PRN 1X PRN ID PRIOR TO IV START; Start 07/25/19 at 07:00; Stop 07/26/19 at 06:59; Status DC Prochlorperazine Edisylate (Compazine) 5 mg PACU PRN PRN IV NAUSEA, MRX1; Start 07/25/19 at 07:00; Stop 07/26/19 at 06:59; Status DC Sodium Chloride 1,000 ml @ 1,000 mls/hr Q1H PRN IV hypotension; Start 07/23/19 at 09:10; Stop 07/23/19 at 15:09; Status DC Albumin Human 200 ml @ 200 mls/hr 1X PRN PRN IV Hypotension Last administered on 07/23/19at 10:10; Start 07/23/19 at 09:15; Stop 07/23/19 at 15:14; Status DC Sodium Chloride 1,000 ml @ 400 mls/hr Q2H30M PRN IV PATENCY; Start 07/23/19 at 09:10; Stop 07/23/19 at 21:09; Status DC Info (PHARMACY MONITORING -- do not chart) 1 each PRN DAILY PRN MC SEE COMMENTS; Start 07/23/19 at 09:15; Stop 07/24/19 at 12:45; Status DC Info (PHARMACY MONITORING -- do not chart) 1 each PRN DAILY PRN MC SEE COMMENTS; Start 07/23/19 at 09:15; Stop 07/24/19 at 12:45; Status DC Sodium Chloride 90 meq/Potassium Chloride 15 meq/ Potassium Phosphate 10 mmol/ Magnesium Sulfate 8 meq/Calcium Gluconate 15 meq/ Multivitamins 10 ml/Chromium/ Copper/Manganese/ Seleni/Zn 0.5 ml/ Insulin Human Regular 25 unit/ Total Parenteral Nutrition/Amino Acids/Dextrose/ Fat Emulsion Intravenous 1,400 ml @ 58.333 mls/ hr TPN CONT IV Last administered on 07/23/19at 22:10; Start 07/23/19 at 22:00; Stop 07/24/19 at 21:59; Status DC Magnesium Sulfate 50 ml @ 25 mls/hr PRN DAILY PRN IV for Mag < 1.7 on am labs Last administered on 10/06/19at 10:57; Start 07/24/19 at 09:15 Sodium Chloride 90 meq/Potassium Chloride 15 meq/ Potassium Phosphate 10 mmol/ Magnesium Sulfate 8 meq/Calcium Gluconate 15 meq/ Multivitamins 10 ml/Chromium/ Copper/Manganese/ Seleni/Zn 0.5 ml/ Insulin Human Regular 25 unit/ Total Parenteral Nutrition/Amino Acids/Dextrose/ Fat Emulsion Intravenous 1,400 ml @ 58.333 mls/ hr TPN CONT IV Last administered on 07/24/19at 21:20; Start 07/24/19 at 22:00; Stop 07/25/19 at 21:59; Status DC Sodium Chloride 1,000 ml @ 1,000 mls/hr Q1H PRN IV hypotension; Start 07/24/19 at 12:23; Stop 07/24/19 at 18:22; Status DC Albumin Human 200 ml @ 200 mls/hr 1X ONCE IV Last administered on 07/24/19at 13:34; Start 07/24/19 at 12:30; Stop 07/24/19 at 13:29; Status DC Diphenhydramine HCl (Benadryl) 25 mg 1X PRN PRN IV ITCHING; Start 07/24/19 at 12:30; Stop 07/25/19 at 12:29; Status DC Diphenhydramine HCl (Benadryl) 25 mg 1X PRN PRN IV ITCHING; Start 07/24/19 at 12:30; Stop 07/25/19 at 12:29; Status DC Info (PHARMACY MONITORING -- do not chart) 1 each PRN DAILY PRN MC SEE COMMENTS; Start 07/24/19 at 12:30; Status Cancel Bupivacaine HCl/ Epinephrine Bitart (Sensorcain-Epi 0.5%-1:[id number] Mpf) 30 ml STK-MED ONCE .ROUTE Last administered on 07/25/19at 11:44; Start 07/25/19 at 11:00; Stop 07/25/19 at 11:01; Status DC Cellulose (Surgicel Fibrillar 1x2) 1 each STK-MED ONCE .ROUTE ; Start 07/25/19 at 11:00; Stop 07/25/19 at 11:01; Status DC Sodium Chloride 90 meq/Potassium Chloride 15 meq/ Potassium Phosphate 10 mmol/ Magnesium Sulfate 12 meq/Calcium Gluconate 15 meq/ Multivitamins 10 ml/Chromium/ Copper/Manganese/ Seleni/Zn 0.5 ml/ Insulin Human Regular 25 unit/ Total Parenteral Nutrition/Amino Acids/Dextrose/ Fat Emulsion Intravenous 1,400 ml @ 58.333 mls/ hr TPN CONT IV Last administered on 07/25/19at 22:24; Start 07/25/19 at 22:00; Stop 07/26/19 at 21:59; Status DC Propofol 20 ml @ As Directed STK-MED ONCE IV ; Start 07/25/19 at 11:07; Stop 07/25/19 at 11:07; Status DC Cellulose (Surgicel Hemostat 4x8) 1 each STK-MED ONCE .ROUTE Last administered on 07/25/19at 11:44; Start 07/25/19 at 11:55; Stop 07/25/19 at 11:56; Status DC Sevoflurane (Ultane) 60 ml STK-MED ONCE IH ; Start 07/25/19 at 12:46; Stop 07/25/19 at 12:46; Status DC Sodium Chloride 1,000 ml @ 1,000 mls/hr Q1H PRN IV hypotension; Start 07/25/19 at 13:51; Stop 07/25/19 at 19:50; Status DC Albumin Human 200 ml @ 200 mls/hr 1X PRN PRN IV Hypotension Last administered on 07/25/19at 14:51; Start 07/25/19 at 14:00; Stop 07/25/19 at 19:59; Status DC Diphenhydramine HCl (Benadryl) 25 mg 1X PRN PRN IV ITCHING; Start 07/25/19 at 14:00; Stop 07/26/19 at 13:59; Status DC Diphenhydramine HCl (Benadryl) 25 mg 1X PRN PRN IV ITCHING; Start 07/25/19 at 14:00; Stop 07/26/19 at 13:59; Status DC Sodium Chloride 1,000 ml @ 400 mls/hr Q2H30M PRN IV PATENCY; Start 07/25/19 at 13:51; Stop 07/26/19 at 01:50; Status DC Info (PHARMACY MONITORING -- do not chart) 1 each PRN DAILY PRN MC SEE COMMENTS; Start 07/25/19 at 14:00; Stop 07/28/19 at 08:16; Status DC Heparin Sodium (Porcine) (Hep Lock Adult) 500 unit STK-MED ONCE IVP ; Start 07/26/19 at 09:29; Stop 07/26/19 at 09:30; Status DC Sodium Chloride 1,000 ml @ 1,000 mls/hr Q1H PRN IV hypotension; Start 07/26/19 at 10:43; Stop 07/26/19 at 16:42; Status DC Sodium Chloride 1,000 ml @ 400 mls/hr Q2H30M PRN IV PATENCY; Start 07/26/19 at 10:43; Stop 07/26/19 at 22:42; Status DC Info (PHARMACY MONITORING -- do not chart) 1 each PRN DAILY PRN MC SEE COMMENTS; Start 07/26/19 at 10:45; Status UNV Info (PHARMACY MONITORING -- do not chart) 1 each PRN DAILY PRN MC SEE COMMENTS; Start 07/26/19 at 10:45; Status UNV Sodium Chloride 90 meq/Potassium Chloride 15 meq/ Magnesium Sulfate 12 meq/Calcium Gluconate 15 meq/ Multivitamins 10 ml/Chromium/ Copper/Manganese/ Seleni/Zn 0.5 ml/ Insulin Human Regular 25 unit/ Total Parenteral Nutrition/Amino Acids/Dextrose/ Fat Emulsion Intravenous 1,400 ml @ 58.333 mls/ hr TPN CONT IV Last administered on 07/26/19at 22:13; Start 07/26/19 at 22:00; Stop 07/27/19 at 21:59; Status DC Sodium Chloride 1,000 ml @ 1,000 mls/hr Q1H PRN IV hypotension; Start 07/27/19 at 07:50; Stop 07/27/19 at 13:49; Status DC Albumin Human 200 ml @ 200 mls/hr 1X ONCE IV ; Start 07/27/19 at 08:00; Stop 07/27/19 at 08:53; Status DC Diphenhydramine HCl (Benadryl) 25 mg 1X PRN PRN IV ITCHING; Start 07/27/19 at 08:00; Stop 07/28/19 at 07:59; Status DC Diphenhydramine HCl (Benadryl) 25 mg 1X PRN PRN IV ITCHING; Start 07/27/19 at 08:00; Stop 07/28/19 at 07:59; Status DC Info (PHARMACY MONITORING -- do not chart) 1 each PRN DAILY PRN MC SEE COMMENTS; Start 07/27/19 at 08:00; Stop 07/28/19 at 08:16; Status DC Albumin Human 50 ml @ 50 mls/hr 1X ONCE IV ; Start 07/27/19 at 08:53; Stop 07/27/19 at 08:56; Status DC Albumin Human 200 ml @ 50 mls/hr PRN 1X PRN IV HYPOTENSION Last administered on 08/02/19at 11:54; Start 07/27/19 at 09:00; Stop 09/08/19 at 11:14; Status DC Meropenem 500 mg/ Sodium Chloride 50 ml @ 100 mls/hr Q12H IV Last administered on 08/16/19at 10:45; Start 07/27/19 at 10:00; Stop 08/16/19 at 12:37; Status DC Sodium Chloride 90 meq/Magnesium Sulfate 12 meq/ Calcium Gluconate 15 meq/ Multivitamins 10 ml/Chromium/ Copper/Manganese/ Seleni/Zn 0.5 ml/ Insulin Human Regular 25 unit/ Total Parenteral Nutrition/Amino Acids/Dextrose/ Fat Emulsion Intravenous 1,400 ml @ 58.333 mls/ hr TPN CONT IV Last administered on 07/27/19at 21:41; Start 07/27/19 at 22:00; Stop 07/28/19 at 21:59; Status DC Sodium Chloride 1,000 ml @ 1,000 mls/hr Q1H PRN IV hypotension; Start 07/28/19 at 07:58; Stop 07/28/19 at 13:57; Status DC Albumin Human 200 ml @ 200 mls/hr 1X PRN PRN IV Hypotension Last administered on 07/28/19at 09:30; Start 07/28/19 at 08:00; Stop 07/28/19 at 13:59; Status DC Sodium Chloride 1,000 ml @ 400 mls/hr Q2H30M PRN IV PATENCY; Start 07/28/19 at 07:58; Stop 07/28/19 at 19:57; Status DC Info (PHARMACY MONITORING -- do not chart) 1 each PRN DAILY PRN MC SEE COMMENTS; Start 07/28/19 at 08:00; Status Cancel Info (PHARMACY MONITORING -- do not chart) 1 each PRN DAILY PRN MC SEE COMMENTS; Start 07/28/19 at 08:15; Status UNV Sodium Chloride 90 meq/Potassium Phosphate 5 mmol/ Magnesium Sulfate 12 meq/Calcium Gluconate 15 meq/ Multivitamins 10 ml/Chromium/ Copper/Manganese/ Seleni/Zn 0.5 ml/ Insulin Human Regular 30 unit/ Total Parenteral Nutrition/Amino Acids/Dextrose/ Fat Emulsion Intravenous 1,400 ml @ 58.333 mls/ hr TPN CONT IV Last administered on 07/28/19at 22:08; Start 07/28/19 at 22:00; Stop 07/29/19 at 21:59; Status DC Linezolid/Dextrose 300 ml @ 300 mls/hr Q12HR IV Last administered on 08/08/19at 20:40; Start 07/29/19 at 11:00; Stop 08/09/19 at 08:10; Status DC Sodium Chloride 90 meq/Potassium Phosphate 15 mmol/ Magnesium Sulfate 12 meq/Calcium Gluconate 15 meq/ Multivitamins 10 ml/Chromium/ Copper/Manganese/ Seleni/Zn 0.5 ml/ Insulin Human Regular 30 unit/ Total Parenteral Nutr ition/Amino Acids/Dextrose/ Fat Emulsion Intravenous 1,400 ml @ 58.333 mls/ hr TPN CONT IV Last administered on 07/29/19at 21:49; Start 07/29/19 at 22:00; Stop 07/30/19 at 21:59; Status DC Sodium Chloride 90 meq/Potassium Phosphate 15 mmol/ Magnesium Sulfate 12 meq/Calcium Gluconate 15 meq/ Multivitamins 10 ml/Chromium/ Copper/Manganese/ Seleni/Zn 0.5 ml/ Insulin Human Regular 40 unit/ Total Parenteral Nutrition/Amino Acids/Dextrose/ Fat Emulsion Intravenous 1,400 ml @ 58.333 mls/ hr TPN CONT IV Last administered on 07/30/19at 21:21; Start 07/30/19 at 22:00; Stop 07/31/19 at 21:59; Status DC Sodium Chloride 1,000 ml @ 1,000 mls/hr Q1H PRN IV hypotension; Start 07/30/19 at 13:26; Stop 07/30/19 at 19:25; Status DC Albumin Human 200 ml @ 200 mls/hr 1X PRN PRN IV Hypotension Last administered on 07/30/19at 15:00; Start 07/30/19 at 13:30; Stop 07/30/19 at 19:29; Status DC Sodium Chloride (Normal Saline Flush) 10 ml 1X PRN PRN IV AP catheter pack; Start 07/30/19 at 13:30; Stop 07/31/19 at 13:29; Status DC Sodium Chloride (Normal Saline Flush) 10 ml 1X PRN PRN IV [employer] catheter pack; Start 07/30/19 at 13:30; Stop 07/31/19 at 13:29; Status DC Sodium Chloride 1,000 ml @ 400 mls/hr Q2H30M PRN IV PATENCY; Start 07/30/19 at 13:26; Stop 07/31/19 at 01:25; Status DC Info (PHARMACY MONITORING -- do not chart) 1 each PRN DAILY PRN MC SEE COMMENTS; Start 07/30/19 at 13:30; Stop 07/30/19 at 13:33; Status DC Info (PHARMACY MONITORING -- do not chart) 1 each PRN DAILY PRN MC SEE COMMENTS; Start 07/30/19 at 13:30; Stop 07/30/19 at 13:34; Status DC Sodium Chloride 90 meq/Potassium Phosphate 19 mmol/ Magnesium Sulfate 12 meq/Calcium Gluconate 15 meq/ Multivitamins 10 ml/Chromium/ Copper/Manganese/ Seleni/Zn 0.5 ml/ Insulin Human Regular 40 unit/ Total Parenteral Nutri tion/Amino Acids/Dextrose/ Fat Emulsion Intravenous 1,400 ml @ 58.333 mls/ hr TPN CONT IV Last administered on 07/31/19at 21:54; Start 07/31/19 at 22:00; Stop 08/01/19 at 21:59; Status DC Sodium Chloride 1,000 ml @ 1,000 mls/hr Q1H PRN IV hypotension; Start 08/01/19 at 09:35; Stop 08/01/19 at 15:34; Status DC Albumin Human 200 ml @ 200 mls/hr 1X PRN PRN IV Hypotension; Start 08/01/19 at 09:45; Stop 08/01/19 at 15:44; Status DC Diphenhydramine HCl (Benadryl) 25 mg 1X PRN PRN IV ITCHING; Start 08/01/19 at 09:45; Stop 08/02/19 at 09:44; Status DC Diphenhydramine HCl (Benadryl) 25 mg 1X PRN PRN IV ITCHING; Start 08/01/19 at 0 9:45; Stop 08/02/19 at 09:44; Status DC Sodium Chloride 1,000 ml @ 400 mls/hr Q2H30M PRN IV PATENCY; Start 08/01/19 at 09:35; Stop 08/01/19 at 21:34; Status DC Info (PHARMACY MONITORING -- do not chart) 1 each PRN DAILY PRN MC SEE COMMENTS; Start 08/01/19 at 09:45; Status Cancel Sodium Chloride 100 meq/Potassium Phosphate 19 mmol/ Magnesium Sulfate 12 meq/Calcium Gluconate 15 meq/ Multivitamins 10 ml/Chromium/ Copper/Manganese/ Seleni/Zn 0.5 ml/ Insulin Human Regular 40 unit/ Potassium Chloride 20 meq/ Total Parenteral Nutrition/Amino Acids/Dextrose/ Fat Emulsion Intravenous 1,400 ml @ 58.333 mls/ hr TPN CONT IV Last administered on 08/01/19at 22:02; Start 08/01/19 at 22:00; Stop 08/02/19 at 21:59; Status DC Furosemide (Lasix) 40 mg 1X ONCE IVP Last administered on 08/01/19at 14:39; Start 08/01/19 at 14:30; Stop 08/01/19 at 14:31; Status DC Metronidazole 100 ml @ 100 mls/hr Q8HRS IV Last administered on 08/09/19at 06:04; Start 08/02/19 at 10:00; Stop 08/09/19 at 08:10; Status DC Sodium Chloride 1,000 ml @ 1,000 mls/hr Q1H PRN IV hypotension; Start 08/02/19 at 08:00; Stop 08/02/19 at 13:59; Status DC Albumin Human 200 ml @ 200 mls/hr 1X PRN PRN IV Hypotension; Start 08/02/19 at 08:00; Stop 08/02/19 at 13:59; Status DC Sodium Chloride 1,000 ml @ 400 mls/hr Q2H30M PRN IV PATENCY; Start 08/02/19 at 08:00; Stop 08/02/19 at 19:59; Status DC Info (PHARMACY MONITORING -- do not chart) 1 each PRN DAILY PRN MC SEE COMMENTS; Start 08/02/19 at 11:30; Status UNV Info (PHARMACY MONITORING -- do not chart) 1 each PRN DAILY PRN MC SEE COMMENTS; Start 08/02/19 at 11:30; Stop 08/04/19 at 12:13; Status DC Sodium Chloride 100 meq/Potassium Phosphate 19 mmol/ Magnesium Sulfate 12 meq/Calcium Gluconate 15 meq/ Multivitamins 10 ml/Chromium/ Copper/Manganese/ Seleni/Zn 0.5 ml/ Insulin Human Regular 40 unit/ Potassium Chloride 20 meq/ Total Parenteral Nutrition/Amino Acids/Dextrose/ Fat Emulsion Intravenous 1,400 ml @ 58.333 mls/ hr TPN CONT IV Last administered on 08/02/19at 21:52; Start 08/02/19 at 22:00; Stop 08/03/19 at 21:59; Status DC Sodium Chloride (Normal Saline Flush) 10 ml QSHIFT PRN IV AFTER MEDS AND BLOOD DRAWS; Start 08/02/19 at 15:00; Stop 08/30/19 at 11:27; Status DC Sodium Chloride (Normal Saline Flush) 10 ml PRN Q5MIN PRN IV AFTER MEDS AND BL OOD DRAWS; Start 08/02/19 at 15:00 Sodium Chloride (Normal Saline Flush) 20 ml PRN Q5MIN PRN IV AFTER MEDS AND BLOOD DRAWS; Start 08/02/19 at 15:00 Sodium Chloride 100 meq/Potassium Phosphate 19 mmol/ Magnesium Sulfate 12 meq/Calcium Gluconate 15 meq/ Multivitamins 10 ml/Chromium/ Copper/Manganese/ Seleni/Zn 0.5 ml/ Insulin Human Regular 40 unit/ Potassium Chloride 20 meq/ Total Parenteral Nutrition/Amino Acids/Dextrose/ Fat Emulsion Intravenous 1,400 ml @ 58.333 mls/ hr TPN CONT IV Last administered on 08/03/19at 21:20; Start 08/03/19 at 22:00; Stop 08/04/19 at 21:59; Status DC Lidocaine HCl (Buffered Lidocaine 1%) 3 ml STK-MED ONCE .ROUTE ; Start 08/03/19 at 13:16; Stop 08/03/19 at 13:16; Status DC Lidocaine HCl (Buffered Lidocaine 1%) 6 ml 1X ONCE INJ Last administered on 08/03/19at 13:45; Start 08/03/19 at 13:30; Stop 08/03/19 at 13:31; Status DC Albumin Human 100 ml @ 100 mls/hr 1X ONCE IV Last administered on 08/03/19at 15:41; Start 08/03/19 at 15:00; Stop 08/03/19 at 15:59; Status DC Albumin Human 50 ml @ 50 mls/hr 1X ONCE IV Last administered on 08/03/19at 15:00; Start 08/03/19 at 15:00; Stop 08/03/19 at 15:59; Status DC Info (PHARMACY MONITORING -- do not chart) 1 each PRN DAILY PRN MC SEE COMMENTS; Start 08/04/19 at 11:30; Status Cancel Info (PHARMACY MONITORING -- do not chart) 1 each PRN DAILY PRN MC SEE COMMENTS; Start 08/04/19 at 11:30; Status UNV Sodium Chloride 100 meq/Potassium Phosphate 10 mmol/ Magnesium Sulfate 12 meq/Calcium Gluconate 15 meq/ Multivitamins 10 ml/Chromium/ Copper/Manganese/ Seleni/Zn 0.5 ml/ Insulin Human Regular 35 unit/ Potassium Chloride 20 meq/ Total Parenteral Nutrition/Amino Acids/Dextrose/ Fat Emulsion Intravenous 1,400 ml @ 58.333 mls/ hr TPN CONT IV Last administered on 08/04/19at 22:10; Start 08/04/19 at 22:00; Stop 08/05/19 at 21:59; Status DC Sodium Chloride 100 meq/Potassium Phosphate 5 mmol/ Magnesium Sulfate 12 meq/Ca lcium Gluconate 15 meq/ Multivitamins 10 ml/Chromium/ Copper/Manganese/ Seleni/Zn 0.5 ml/ Insulin Human Regular 35 unit/ Potassium Chloride 20 meq/ Total Parenteral Nutrition/Amino Acids/Dextrose/ Fat Emulsion Intravenous 1,400 ml @ 58.333 mls/ hr TPN CONT IV Last administered on 08/05/19at 22:59; Start 08/05/19 at 22:00; Stop 08/06/19 at 21:59; Status DC Sodium Chloride 1,000 ml @ 1,000 mls/hr Q1H PRN IV hypotension; Start 08/06/19 at 08:27; Stop 08/06/19 at 14:26; Status DC Albumin Human 200 ml @ 200 mls/hr 1X PRN PRN IV Hypotension Last administered on 08/06/19at 09:18; Start 08/06/19 at 08:30; Stop 08/06/19 at 14:29; Status DC Sodium Chloride 1,000 ml @ 400 mls/hr Q2H30M PRN IV PATENCY; Start 08/06/19 at 08:27; Stop 08/06/19 at 20:26; Status DC Info (PHARMACY MONITORING -- do not chart) 1 each PRN DAILY PRN MC SEE COMMENTS; Start 08/06/19 at 08:30; Status Cancel Info (PHARMACY MONITORING -- do not chart) 1 each PRN DAILY PRN MC SEE COMMENTS; Start 08/06/19 at 08:30; Stop 08/14/19 at 13:10; Status DC Sodium Chloride 100 meq/Potassium Chloride 40 meq/ Magnesium Sulfate 15 meq/Calcium Gluconate 15 meq/ Multivitamins 10 ml/Chromium/ Copper/Manganese/ Seleni/Zn 0.5 ml/ Insulin Human Regular 35 unit/ Total Parenteral Nutrition/Amino Acids/Dextrose/ Fat Emulsion Intravenous 1,400 ml @ 58.333 mls/ hr TPN CONT IV Last administered on 08/06/19at 22:00; Start 08/06/19 at 22:00; Stop 08/07/19 at 21:59; Status DC Potassium Chloride/Water 100 ml @ 100 mls/hr 1X ONCE IV Last administered on 08/06/19at 17:28; Start 08/06/19 at 14:45; Stop 08/06/19 at 15:44; Status DC Sodium Chloride 100 meq/Potassium Chloride 40 meq/ Magnesium Sulfate 15 meq/Calcium Gluconate 15 meq/ Multivitamins 10 ml/Chromium/ Copper/Manganese/ Seleni/Zn 0.5 ml/ Insulin Human Regular 35 unit/ Total Parenteral Nutrition/Amino Acids/Dextrose/ Fat Emulsion Intravenous 1,400 ml @ 58.333 mls/ hr TPN CONT IV Last administered on 08/07/19at 22:46; Start 08/07/19 at 22:00; Stop 08/08/19 at 21:59; Status DC Sodium Chloride 100 meq/Potassium Chloride 40 meq/ Magnesium Sulfate 20 meq/Calcium Gluconate 15 meq/ Multivitamins 10 ml/Chromium/ Copper/Manganese/ Seleni/Zn 0.5 ml/ Insulin Human Regular 35 unit/ Total Parenteral Nutrition/Amino Acids/Dextrose/ Fat Emulsion Intravenous 1,400 ml @ 58.333 mls/ hr TPN CONT IV Last administered on 08/08/19at 22:31; Start 08/08/19 at 22:00; Stop 08/09/19 at 21:59; Status DC Fentanyl Citrate (Fentanyl 2ml Vial) 50 mcg PRN Q2HR PRN IVP PAIN Last administered on 08/15/19at 13:32; Start 08/08/19 at 21:00; Stop 08/16/19 at 12:53; Status DC Fentanyl Citrate (Fentanyl 2ml Vial) 25 mcg PRN Q2HR PRN IVP PAIN; Start 08/08/19 at 21:00; Stop 08/16/19 at 12:54; Status DC Enoxaparin Sodium (Lovenox 100mg Syringe) 100 mg Q12HR SQ ; Start 08/09/19 at 21:00; Status UNV Amino Acids/ Glycerin/ Electrolytes 1,000 ml @ 75 mls/hr [id number] IV ; Start 08/08/19 at 21:15; Status UNV Sodium Chloride 1,000 ml @ 1,000 mls/hr Q1H PRN IV hypotension; Start 08/09/19 at 07:56; Stop 08/09/19 at 13:55; Status DC Albumin Human 200 ml @ 200 mls/hr 1X PRN PRN IV Hypotension Last administered on 08/09/19at 08:40; Start 08/09/19 at 08:00; Stop 08/09/19 at 13:59; Status DC Sodium Chloride 1,000 ml @ 400 mls/hr Q2H30M PRN IV PATENCY; Start 08/09/19 at 07:56; Stop 08/09/19 at 19:55; Status DC Info (PHARMACY MONITORING -- do not chart) 1 each PRN DAILY PRN MC SEE COMMENTS; Start 08/09/19 at 08:00; Status UNV Info (PHARMACY MONITORING -- do not chart) 1 each PRN DAILY PRN MC SEE COMMENTS; Start 08/09/19 at 08:00; Status UNV Daptomycin 430 mg/ Sodium Chloride 50 ml @ 100 mls/hr Q24H IV Last administered on 08/09/19at 12:35; Start 08/09/19 at 09:00; Stop 08/09/19 at 12:49; Status DC Sodium Chloride 100 meq/Potassium Chloride 40 meq/ Magnesium Sulfate 20 meq/Calcium Gluconate 15 meq/ Multivitamins 10 ml/Chromium/ Copper/Manganese/ Seleni/Zn 0.5 ml/ Insulin Human Regular 35 unit/ Total Parenteral Nutrition/Amino Acids/Dextrose/ Fat Emulsion Intravenous 1,400 ml @ 58.333 mls/ hr TPN CONT IV Last administered on 08/09/19at 21:26; Start 08/09/19 at 22:00; Stop 08/10/19 at 21:59; Status DC Daptomycin 430 mg/ Sodium Chloride 50 ml @ 100 mls/hr Q48H IV ; Start 08/11/19 at 09:00; Stop 08/10/19 at 11:55; Status DC Sodium Chloride 100 meq/Potassium Chloride 40 meq/ Magnesium Sulfate 20 meq/Calcium Gluconate 15 meq/ Multivitamins 10 ml/Chromium/ Copper/Manganese/ Seleni/Zn 0.5 ml/ Insulin Human Regular 35 unit/ Total Parenteral Nutrition/Amino Acids/Dextrose/ Fat Emulsion Intravenous 1,400 ml @ 58.333 mls/ hr TPN CONT IV Last administered on 08/10/19at 22:27; Start 08/10/19 at 22:00; Stop 08/11/19 at 21:59; Status DC Daptomycin 430 mg/ Sodium Chloride 50 ml @ 100 mls/hr Q24H IV Last administered on 08/12/19at 15:07; Start 08/10/19 at 13:00; Stop 08/13/19 at 13:15; Status DC Sodium Chloride 100 meq/Potassium Chloride 40 meq/ Magnesium Sulfate 20 meq/Calcium Gluconate 10 meq/ Multivitamins 10 ml/Chromium/ Copper/Manganese/ S thien/Zn 0.5 ml/ Insulin Human Regular 35 unit/ Total Parenteral Nutrition/Amino Acids/Dextrose/ Fat Emulsion Intravenous 1,400 ml @ 58.333 mls/ hr TPN CONT IV Last administered on 08/12/19at 00:06; Start 08/11/19 at 22:00; Stop 08/12/19 at 21:59; Status DC Alteplase, Recombinant (Cathflo For Central Catheter Clearance) 1 mg 1X ONCE INT CAT Last administered on 08/12/19at 11:44; Start 08/12/19 at 10:45; Stop 08/12/19 at 10:46; Status DC Ondansetron HCl (Zofran) 4 mg PRN Q6HRS PRN IV NAUSEA/VOMITING; Start 08/15/19 at 07:00; Stop 08/16/19 at 06:59; Status DC Fentanyl Citrate (Fentanyl 2ml Vial) 25 mcg PRN Q5MIN PRN IV MILD PAIN 1-3; Start 08/15/19 at 07:00; Stop 08/16/19 at 06:59; Status DC Fentanyl Citrate (Fentanyl 2ml Vial) 50 mcg PRN Q5MIN PRN IV MODERATE TO SEVERE PAIN Last administered on 08/15/19at 10:17; Start 08/15/19 at 07:00; Stop 08/16/19 at 06:59; Status DC Ringer's Solution 1,000 ml @ 30 mls/hr Q24H IV ; Start 08/15/19 at 07:00; Stop 08/15/19 at 18:59; Status DC Lidocaine HCl (Xylocaine-Mpf 1% 2ml Vial) 2 ml PRN 1X PRN ID PRIOR TO IV START; Start 08/15/19 at 07:00; Stop 08/16/19 at 06:59; Status DC Prochlorperazine Edisylate (Compazine) 5 mg PACU PRN PRN IV NAUSEA, MRX1; Start 08/15/19 at 07:00; Stop 08/16/19 at 06:59; Status DC Sodium Acetate 50 meq/Potassium Acetate 55 meq/ Magnesium Sulfate 20 meq/Calcium Gluconate 10 meq/ Multivitamins 10 ml/Chromium/ Copper/Manganese/ Seleni/Zn 0.5 ml/ Insulin Human Regular 35 unit/ Total Parenteral Nutrition/Amino Acids/Dextrose/ Fat Emulsion Intravenous 1,400 ml @ 58.333 mls/ hr TPN CONT IV ; Start 08/12/19 at 22:00; Stop 08/12/19 at 14:15; Status DC Sodium Acetate 50 meq/Potassium Acetate 55 meq/ Magnesium Sulfate 20 meq/Calcium Gluconate 10 meq/ Multivitamins 10 ml/Chromium/ Copper/Manganese/ Seleni/Zn 0.5 ml/ Insulin Human Regular 35 unit/ Total Parenteral Nutrition/Amino Acids/Dextrose/ Fat Emulsion Intravenous 1,800 ml @ 75 mls/hr TPN CONT IV Last administered on 08/12/19at 22:38; Start 08/12/19 at 22:00; Stop 08/13/19 at 21:59; Status DC Sodium Chloride 1,000 ml @ 1,000 mls/hr Q1H PRN IV hypotension; Start 08/12/19 at 15:31; Stop 08/12/19 at 21:30; Status DC Diphenhydramine HCl (Benadryl) 25 mg 1X PRN PRN IV ITCHING; Start 08/12/19 at 15:45; Stop 08/13/19 at 15:44; Status DC Diphenhydramine HCl (Benadryl) 25 mg 1X PRN PRN IV ITCHING; Start 08/12/19 at 15:45; Stop 08/13/19 at 15:44; Status DC Sodium Chloride 1,000 ml @ 400 mls/hr Q2H30M PRN IV PATENCY; Start 08/12/19 at 15:31; Stop 08/13/19 at 03:30; Status DC Info (PHARMACY MONITORING -- do not chart) 1 each PRN DAILY PRN MC SEE COMMENTS; Start 08/12/19 at 15:45; Stop 09/13/19 at 14:14; Status DC Sodium Acetate 50 meq/Potassium Acetate 55 meq/ Magnesium Sulfate 20 meq/Calcium Gluconate 10 meq/ Multivitamins 10 ml/Chromium/ Copper/Manganese/ Seleni/Zn 0.5 ml/ Insulin Human Regular 35 unit/ Total Parenteral Nutrition/Amino Acids/Dextrose/ Fat Emulsion Intravenous 1,800 ml @ 75 mls/hr TPN CONT IV Last administered on 08/13/19at 22:03; Start 08/13/19 at 22:00; Stop 08/14/19 at 21:59; Status DC Daptomycin 430 mg/ Sodium Chloride 50 ml @ 100 mls/hr Q24H IV Last administered on 08/18/19at 13:00; Start 08/13/19 at 13:00; Stop 08/18/19 at 20:58; Status DC Heparin Sodium (Porcine) 1000 unit/Sodium Chloride 1,001 ml @ 1,001 mls/hr 1X ONCE IRR ; Start 08/15/19 at 06:00; Stop 08/15/19 at 06:59; Status DC Potassium Acetate 55 meq/Magnesium Sulfate 20 meq/ Calcium Gluconate 10 meq/ Multivitamins 10 ml/Chromium/ Copper/Manganese/ Seleni/Zn 0.5 ml/ Insulin Human Regular 35 unit/ Total Parenteral Nutrition/Amino Acids/Dextrose/ Fat Emulsion Intravenous 1,920 ml @ 80 mls/hr TPN CONT IV Last administered on 08/14/19at 22:10; Start 08/14/19 at 22:00; Stop 08/15/19 at 21:59; Status DC Dexamethasone Sodium Phosphate (Decadron) 4 mg STK-MED ONCE .ROUTE ; Start 08/15/19 at 10:56; Stop 08/15/19 at 10:57; Status DC Ondansetron HCl (Zofran) 4 mg STK-MED ONCE .ROUTE ; Start 08/15/19 at 10:56; Stop 08/15/19 at 10:57; Status DC Rocuronium [place] (Zemuron) 50 mg STK-MED ONCE .ROUTE ; Start 08/15/19 at 10:56; Stop 08/15/19 at 10:57; Status DC Fentanyl Citrate (Fentanyl 2ml Vial) 100 mcg STK-MED ONCE .ROUTE ; Start 08/15/19 at 10:56; Stop 08/15/19 at 10:57; Status DC Bupivacaine HCl/ Epinephrine Bitart (Sensorcain-Epi 0.5%-1:380070 Mpf) 30 ml STK-MED ONCE .ROUTE Last administered on 08/15/19at 12:01; Start 08/15/19 at 10:58; Stop 08/15/19 at 10:58; Status DC Cellulose (Surgicel Hemostat 2x14) 1 each STK-MED ONCE .ROUTE ; Start 08/15/19 at 10:58; Stop 08/15/19 at 10:59; Status DC Iohexol (Omnipaque 300 Mg/ml) 50 ml STK-MED ONCE .ROUTE ; Start 08/15/19 at 10:58; Stop 08/15/19 at 10:59; Status DC Cellulose (Surgicel Hemostat 4x8) 1 each STK-MED ONCE .ROUTE ; Start 08/15/19 at 10:58; Stop 08/15/19 at 10:59; Status DC Bisacodyl (Dulcolax Supp) 10 mg STK-MED ONCE .ROUTE ; Start 08/15/19 at 10:59; Stop 08/15/19 at 10:59; Status DC Heparin Sodium (Porcine) 1000 unit/Sodium Chloride 1,001 ml @ 1,001 mls/hr 1X ONCE IRR ; Start 08/15/19 at 12:00; Stop 08/15/19 at 12:59; Status DC Propofol 20 ml @ As Directed STK-MED ONCE IV ; Start 08/15/19 at 11:05; Stop 08/15/19 at 11:05; Status DC Sevoflurane (Ultane) 90 ml STK-MED ONCE IH ; Start 08/15/19 at 11:05; Stop 08/15/19 at 11:05; Status DC Sevoflurane (Ultane) 60 ml STK-MED ONCE IH ; Start 08/15/19 at 12:26; Stop 08/15/19 at 12:27; Status DC Propofol 20 ml @ As Directed STK-MED ONCE IV ; Start 08/15/19 at 12:26; Stop 08/15/19 at 12:27; Status DC Phenylephrine HCl (PHENYLEPHRINE in 0.9% NACL PF) 1 mg STK-MED ONCE IV ; Start 08/15/19 at 12:34; Stop 08/15/19 at 12:34; Status DC Heparin Sodium (Porcine) (Heparin Sodium) 5,000 unit Q12HR SQ Last administered on 08/24/19at 20:57; Start 08/15/19 at 21:00; Stop 08/25/19 at 09:59; Status DC Sodium Chloride (Normal Saline Flush) 3 ml QSHIFT PRN IV AFTER MEDS AND BLOOD DRAWS; Start 08/15/19 at 13:45; Status Cancel Naloxone HCl (Narcan) 0.4 mg PRN Q2MIN PRN IV SEE INSTRUCTIONS Last administer ed on 09/24/19at 15:15; Start 08/15/19 at 13:45; Stop 10/19/19 at 16:00; Status DC Sodium Chloride 1,000 ml @ 25 mls/hr Q24H IV Last administered on 09/13/19at 13:37; Start 08/15/19 at 13:37; Stop 09/16/19 at 13:09; Status DC Naloxone HCl (Narcan) 0.4 mg PRN Q2MIN PRN IV SEE INSTRUCTIONS; Start 08/15/19 at 14:30; Status UNV Sodium Chloride 1,000 ml @ 25 mls/hr Q24H IV ; Start 08/15/19 at 14:30; Status UNV Hydromorphone HCl 30 ml @ 0 mls/hr CONT PRN PRN IV PER PROTOCOL Last administered on 08/20/19at 16:08; Start 08/15/19 at 14:30; Stop 08/22/19 at 08:55; Status DC Potassium Acetate 55 meq/Magnesium Sulfate 20 meq/ Calcium Gluconate 10 meq/ Multivitamins 10 ml/Chromium/ Copper/Manganese/ Seleni/Zn 0.5 ml/ Insulin Human Regular 35 unit/ Total Parenteral Nutrition/Amino Acids/Dextrose/ Fat Emulsion Intravenous 1,920 ml @ 80 mls/hr TPN CONT IV Last administered on 08/15/19at 22:01; Start 08/15/19 at 22:00; Stop 08/16/19 at 21:59; Status DC Bumetanide (Bumex) 2 mg [id number] IV Last administered on 08/19/19at 13:50; Start 08/16/19 at 14:00; Stop 08/20/19 at 14:10; Status DC Meropenem 1 gm/ Sodium Chloride 100 ml @ 200 mls/hr Q8HRS IV Last administered on 09/09/19at 05:53; Start 08/16/19 at 14:00; Stop 09/09/19 at 09:31; Status DC Potassium Acetate 55 meq/Magnesium Sulfate 20 meq/ Calcium Gluconate 10 meq/ Multivitamins 10 ml/Chromium/ Copper/Manganese/ Seleni/Zn 0.5 ml/ Insulin Human Regular 35 unit/ Total Parenteral Nutrition/Amino Acids/Dextrose/ Fat Emulsion Intravenous 1,920 ml @ 80 mls/hr TPN CONT IV Last administered on 08/16/19at 22:02; Start 08/16/19 at 22:00; Stop 08/17/19 at 21:59; Status DC Hydromorphone HCl (Dilaudid [employer]) 12 mg STK-MED ONCE IV ; Start 08/15/19 at 14:35; Stop 08/16/19 at 13:53; Status DC Artificial Tears (Artificial Tears) 1 drop PRN Q15MIN PRN OU DRY EYE Last administered on 10/11/19at 21:17; Start 08/17/19 at 05:30 Hydromorphone HCl (Dilaudid [employer]) 12 mg STK-MED ONCE IV ; Start 08/16/19 at 12:05; Stop 08/17/19 at 09:15; Status DC Potassium Acetate 65 meq/Magnesium Sulfate 20 meq/ Calcium Gluconate 10 meq/ Multivitamins 10 ml/Chromium/ Copper/Manganese/ Seleni/Zn 0.5 ml/ Insulin Human Regular 30 unit/ Total Parenteral Nutrition/Amino Acids/Dextrose/ Fat Emulsion Intravenous 1,920 ml @ 80 mls/hr TPN CONT IV Last administered on 08/17/19at 22:22; Start 08/17/19 at 22:00; Stop 08/18/19 at 21:59; Status DC Cyclobenzaprine HCl (Flexeril) 10 mg PRN Q6HRS PRN PO MUSCLE SPASMS; Start 08/18/19 at 10:45 Potassium Acetate 55 meq/Magnesium Sulfate 20 meq/ Calcium Gluconate 10 meq/ Multivitamins 10 ml/Chromium/ Copper/Manganese/ Seleni/Zn 0.5 ml/ Insulin Human Regular 30 unit/ Total Parenteral Nutrition/Amino Acids/Dextrose/ Fat Emulsion Intravenous 1,920 ml @ 80 mls/hr TPN CONT IV Last administered on 08/19/19at 01:00; Start 08/18/19 at 22:00; Stop 08/19/19 at 21:59; Status DC Magnesium Sulfate 50 ml @ 25 mls/hr 1X ONCE IV Last administered on 08/18/19at 17:18; Start 08/18/19 at 12:45; Stop 08/18/19 at 14:44; Status DC Potassium Chloride/Water 100 ml @ 100 mls/hr 1X ONCE IV Last administered on 08/19/19at 11:27; Start 08/19/19 at 12:00; Stop 08/19/19 at 12:59; Status DC Hydromorphone HCl (Dilaudid [employer]) 12 mg STK-MED ONCE IV ; Start 08/17/19 at 10:50; Stop 08/19/19 at 11:02; Status DC Hydromorphone HCl (Dilaudid [employer]) 12 mg STK-MED ONCE IV ; Start 08/18/19 at 13:47; Stop 08/19/19 at 11:03; Status DC Potassium Acetate 30 meq/Magnesium Sulfate 20 meq/ Calcium Gluconate 10 meq/ Multivitamins 10 ml/Chromium/ Copper/Manganese/ Seleni/Zn 0.5 ml/ Insulin Human Regular 30 unit/ Potassium Chloride 30 meq/ Total Parenteral Nutrition/Amino Acids/Dextrose/ Fat Emulsion Intravenous 1,920 ml @ 80 mls/hr TPN CONT IV Last administered on 08/19/19at 22:34; Start 08/19/19 at 22:00; Stop 08/20/19 at 21:59; Status DC Potassium Chloride/Water 100 ml @ 100 mls/hr Q1H IV Last administered on 08/20/19at 13:05; Start 08/20/19 at 07:00; Stop 08/20/19 at 10:59; Status DC Magnesium Sulfate 50 ml @ 25 mls/hr 1X ONCE IV Last administered on 08/20/19at 10:34; Start 08/20/19 at 10:30; Stop 08/20/19 at 12:29; Status DC Potassium Chloride 75 meq/ Magnesium Sulfate 20 meq/Calcium Gluconate 10 meq/ Multivitamins 10 ml/Chromium/ Copper/Manganese/ Seleni/Zn 0.5 ml/ Insulin Human Regular 30 unit/ Total Parenteral Nutrition/Amino Acids/Dextrose/ Fat Emulsion Intravenous 1,920 ml @ 80 mls/hr TPN CONT IV Last administered on 08/20/19at 21:51; Start 08/20/19 at 22:00; Stop 08/21/19 at 22:00; Status DC Potassium Chloride 75 meq/ Magnesium Sulfate 20 meq/Calcium Gluconate 10 meq/ Multivitamins 10 ml/Chromium/ Copper/Manganese/ Seleni/Zn 0.5 ml/ Insulin Human Regular 25 unit/ Total Parenteral Nutrition/Amino Acids/Dextrose/ Fat Emulsion Intravenous 1,920 ml @ 80 mls/hr TPN CONT IV Last administered on 08/21/19at 22:04; Start 08/21/19 at 22:00; Stop 08/22/19 at 21:59; Status DC Hydromorphone HCl (Dilaudid) 0.4 mg PRN Q4HRS PRN IVP PAIN Last administered on 08/22/19at 10:57; Start 08/22/19 at 09:00; Stop 08/22/19 at 18:59; Status DC Micafungin Sodium 100 mg/Dextrose 100 ml @ 100 mls/hr Q24H IV Last administered on 09/13/19at 12:17; Start 08/22/19 at 11:00; Stop 09/14/19 at 09:59; Status DC Daptomycin 485 mg/ Sodium Chloride 50 ml @ 100 mls/hr Q24H IV Last administered on 08/29/19at 13:10; Start 08/22/19 at 11:00; Stop 08/30/19 at 07:44; Status DC Potassium Chloride 75 meq/ Magnesium Sulfate 15 meq/Calcium Gluconate 8 meq/ Multivitamins 10 ml/Chromium/ Copper/Manganese/ Seleni/Zn 0.5 ml/ Insulin Human Regular 25 unit/ Total Parenteral Nutrition/Amino Acids/Dextrose/ Fat Emulsion Intravenous 1,920 ml @ 80 mls/hr TPN CONT IV Last administered on 08/22/19at 23:08; Start 08/22/19 at 22:00; Stop 08/23/19 at 21:59; Status DC Haloperidol Lactate (Haldol Inj) 3 mg 1X ONCE IVP Last administered on 08/22/19at 14:37; Start 08/22/19 at 14:30; Stop 08/22/19 at 14:31; Status DC Hydromorphone HCl (Dilaudid) 1 mg PRN Q4HRS PRN IVP PAIN Last administered on 09/05/19at 06:25; Start 08/22/19 at 19:00; Stop 09/05/19 at 17:10; Status DC Potassium Chloride 75 meq/ Magnesium Sulfate 15 meq/Calcium Gluconate 8 meq/ Multivitamins 10 ml/Chromium/ Copper/Manganese/ Seleni/Zn 0.5 ml/ Insulin Human Regular 20 unit/ Total Parenteral Nutrition/Amino Acids/Dextrose/ Fat Emulsion Intravenous 1,920 ml @ 80 mls/hr TPN CONT IV Last administered on 08/23/19at 22:10; Start 08/23/19 at 22:00; Stop 08/24/19 at 21:59; Status DC Lidocaine HCl (Buffered Lidocaine 1%) 3 ml STK-MED ONCE .ROUTE ; Start 08/24/19 at 11:31; Stop 08/24/19 at 11:31; Status DC Lidocaine HCl (Buffered Lidocaine 1%) 3 ml STK-MED ONCE .ROUTE ; Start 08/24/19 at 12:28; Stop 08/24/19 at 12:29; Status DC Lidocaine HCl (Buffered Lidocaine 1%) 6 ml 1X ONCE INJ Last administered on 08/24/19at 12:53; Start 08/24/19 at 12:45; Stop 08/24/19 at 12:46; Status DC Potassium Chloride 75 meq/ Magnesium Sulfate 15 meq/Calcium Gluconate 8 meq/ Multivitamins 10 ml/Chromium/ Copper/Manganese/ Seleni/Zn 0.5 ml/ Insulin Human Regular 20 unit/ Total Parenteral Nutrition/Amino Acids/Dextrose/ Fat Emulsion Intravenous 1,920 ml @ 80 mls/hr TPN CONT IV Last administered on 08/24/19at 22:00; Start 08/24/19 at 22:00; Stop 08/25/19 at 21:59; Status DC Potassium Chloride 75 meq/ Magnesium Sulfate 15 meq/Calcium Gluconate 8 meq/ Multivitamins 10 ml/Chromium/ Copper/Manganese/ Seleni/Zn 0.5 ml/ Insulin Human Regular 15 unit/ Total Parenteral Nutrition/Amino Acids/Dextrose/ Fat Emulsion Intravenous 1,920 ml @ 80 mls/hr TPN CONT IV Last administered on 08/25/19at 22:28; Start 08/25/19 at 22:00; Stop 08/26/19 at 21:59; Status DC Vecuronium Hitchcock (Norcuron Bolus) 6 mg PRN Q6HRS PRN IV VENT ASYNCHRONY; Start 08/25/19 at 19:15; Stop 08/25/19 at 19:35; Status DC Bumetanide (Bumex) 2 mg 1X ONCE IV Last administered on 08/25/19at 22:09; Start 08/25/19 at 19:45; Stop 08/25/19 at 19:46; Status DC Lidocaine HCl (Buffered Lidocaine 1%) 3 ml STK-MED ONCE .ROUTE ; Start 08/26/19 at 07:59; Stop 08/26/19 at 07:59; Status DC Midazolam HCl (Versed) 5 mg STK-MED ONCE .ROUTE ; Start 08/26/19 at 08:36; Stop 08/26/19 at 08:36; Status DC Fentanyl Citrate (Fentanyl 5ml Vial) 250 mcg STK-MED ONCE .ROUTE ; Start 08/26/19 at 08:36; Stop 08/26/19 at 08:37; Status DC Lidocaine HCl (Buffered Lidocaine 1%) 3 ml 1X ONCE IJ Last administered on 08/26/19at 09:30; Start 08/26/19 at 09:15; Stop 08/26/19 at 09:16; Status DC Midazolam HCl (Versed) 5 mg 1X ONCE IV Last administered on 08/26/19at 09:30; Start 08/26/19 at 09:15; Stop 08/26/19 at 09:16; Status DC Fentanyl Citrate (Fentanyl 5ml Vial) 250 mcg 1X ONCE IV Last administered on 08/26/19at 09:30; Start 08/26/19 at 09:15; Stop 08/26/19 at 09:16; Status DC Bumetanide (Bumex) 2 mg DAILY IV Last administered on 09/05/19at 08:07; Start 08/26/19 at 10:00; Stop 09/05/19 at 17:15; Status DC Potassium Chloride 75 meq/ Magnesium Sulfate 15 meq/ Multivitamins 10 ml/Chromium/ Copper/Manganese/ Seleni/Zn 0.5 ml/ Insulin Human Regular 15 unit/ Total Parenteral Nutrition/Amino Acids/Dextrose/ Fat Emulsion Intravenous 1,920 ml @ 80 mls/hr TPN CONT IV Last administered on 08/26/19at 21:59; Start 08/26/19 at 22:00; Stop 08/27/19 at 21:59; Status DC Metoclopramide HCl (Reglan Vial) 10 mg PRN Q3HRS PRN IVP NAUSEA/VOMITING-3rd choice Last administered on 09/01/19at 04:25; Start 08/27/19 at 16:45 Potassium Chloride 75 meq/ Magnesium Sulfate 15 meq/ Multivitamins 10 ml/Chrom ium/ Copper/Manganese/ Seleni/Zn 0.5 ml/ Insulin Human Regular 15 unit/ Total Parenteral Nutrition/Amino Acids/Dextrose/ Fat Emulsion Intravenous 1,920 ml @ 80 mls/hr TPN CONT IV Last administered on 08/27/19at 22:41; Start 08/27/19 at 22:00; Stop 08/28/19 at 21:59; Status DC Magnesium Sulfate 50 ml @ 25 mls/hr 1X ONCE IV Last administered on 08/28/19at 10:44; Start 08/28/19 at 09:00; Stop 08/28/19 at 10:59; Status DC Potassium Chloride/Water 100 ml @ 100 mls/hr 1X ONCE IV Last administered on 08/28/19at 09:37; Start 08/28/19 at 09:00; Stop 08/28/19 at 09:59; Status DC Duloxetine HCl (Cymbalta) 30 mg DAILY PO Last administered on 08/29/19at 09:48; Start 08/28/19 at 14:00; Stop 08/31/19 at 10:25; Status DC Potassium Chloride 80 meq/ Magnesium Sulfate 20 meq/ Multivitamins 10 ml/Chromium/ Copper/Manganese/ Seleni/Zn 0.5 ml/ Insulin Human Regular 15 unit/ Total Parenteral Nutrition/Amino Acids/Dextrose/ Fat Emulsion Intravenous 1,920 ml @ 80 mls/hr TPN CONT IV Last administered on 08/28/19at 21:42; Start 08/28/19 at 22:00; Stop 08/29/19 at 21:59; Status DC Potassium Chloride 80 meq/ Magnesium Sulfate 20 meq/ Multivitamins 10 ml /Chromium/ Copper/Manganese/ Seleni/Zn 0.5 ml/ Insulin Human Regular 15 unit/ Total Parenteral Nutrition/Amino Acids/Dextrose/ Fat Emulsion Intravenous 1,920 ml @ 80 mls/hr TPN CONT IV Last administered on 08/29/19at 22:20; Start 08/29/19 at 22:00; Stop 08/30/19 at 21:59; Status DC Lidocaine HCl (Buffered Lidocaine 1%) 3 ml STK-MED ONCE .ROUTE ; Start 08/30/19 at 09:54; Stop 08/30/19 at 09:55; Status DC Hydromorphone HCl (Dilaudid [employer]) 12 mg STK-MED ONCE IV ; Start 08/19/19 at 15:50; Stop 08/30/19 at 11:24; Status DC Potassium Chloride 80 meq/ Magnesium Sulfate 20 meq/ Multivitamins 10 ml/Chromium/ Copper/Manganese/ Seleni/Zn 0.5 ml/ Insulin Human Regular 15 unit/ Total Parenteral Nutrition/Amino Acids/Dextrose/ Fat Emulsion Intravenous 1,920 ml @ 80 mls/hr TPN CONT IV Last administered on 08/30/19at 21:40; Start 08/30/19 at 22:00; Stop 08/31/19 at 21:59; Status DC Lidocaine HCl (Buffered Lidocaine 1%) 6 ml 1X ONCE INJ Last administered on 08/30/19at 14:15; Start 08/30/19 at 14:15; Stop 08/30/19 at 14:16; Status DC Potassium Chloride 80 meq/ Magnesium Sulfate 20 meq/ Multivitamins 10 ml/Chromium/ Copper/Manganese/ Seleni/Zn 1 ml/ Insulin Human Regular 15 unit/ Total Parenteral Nutrition/Amino Acids/Dextrose/ Fat Emulsion Intravenous 1,920 ml @ 80 mls/hr TPN CONT IV Last administered on 08/31/19at 22:04; Start 08/31/19 at 22:00; Stop 09/01/19 at 21:59; Status DC Potassium Chloride/Water 100 ml @ 100 mls/hr 1X ONCE IV Last administered on 09/01/19at 11:34; Start 09/01/19 at 11:00; Stop 09/01/19 at 11:59; Status DC Potassium Chloride 90 meq/ Magnesium Sulfate 20 meq/ Multivitamins 10 ml/Chromium/ Copper/Manganese/ Seleni/Zn 1 ml/ Insulin Human Regular 15 unit/ Total Parenteral Nutrition/Amino Acids/Dextrose/ Fat Emulsion Intravenous 1,920 ml @ 80 mls/hr TPN CONT IV Last administered on 09/01/19at 22:57; Start 09/01/19 at 22:00; Stop 09/02/19 at 21:59; Status DC Potassium Chloride 90 meq/ Magnesium Sulfate 20 meq/ Multivitamins 10 ml/Chromium/ Copper/Manganese/ Seleni/Zn 1 ml/ Insulin Human Regular 15 unit/ Total Parenteral Nutrition/Amino Acids/Dextrose/ Fat Emulsion Intravenous 1,920 ml @ 80 mls/hr TPN CONT IV Last administered on 09/02/19at 22:48; Start 09/02/19 at 22:00; Stop 09/03/19 at 21:59; Status DC Potassium Chloride 90 meq/ Magnesium Sulfate 20 meq/ Multivitamins 10 ml/Chromium/ Copper/Manganese/ Seleni/Zn 1 ml/ Insulin Human Regular 15 unit/ Total Parenteral Nutrition/Amino Acids/Dextrose/ Fat Emulsion Intravenous 1,890 ml @ 78.75 mls/ hr TPN CONT IV Last administered on 09/03/19at 22:15; Start 09/03/19 at 22:00; Stop 09/04/19 at 21:59; Status DC Linezolid/Dextrose 300 ml @ 300 mls/hr Q12HR IV Last administered on 09/06/19at 21:08; Start 09/04/19 at 09:00; Stop 09/07/19 at 08:11; Status DC Daptomycin 450 mg/ Sodium Chloride 50 ml @ 100 mls/hr Q24H IV Last administered on 09/07/19at 09:25; Start 09/04/19 at 09:00; Stop 09/08/19 at 08:30; Status DC Potassium Chloride 90 meq/ Magnesium Sulfate 20 meq/ Multivitamins 10 ml/Chromium/ Copper/Manganese/ Seleni/Zn 1 ml/ Insulin Human Regular 15 unit/ Total Parenteral Nutrition/Amino Acids/Dextrose/ Fat Emulsion Intravenous 1,890 ml @ 78.75 mls/ hr TPN CONT IV Last administered on 09/04/19at 21:34; Start 09/04/19 at 22:00; Stop 09/05/19 at 21:59; Status DC Lorazepam (Ativan Inj) 2 mg STK-MED ONCE .ROUTE ; Start 09/04/19 at 14:58; Stop 09/04/19 at 14:58; Status DC Metoprolol Tartrate (Lopressor Vial) 5 mg 1X ONCE IVP Last administered on 09/04/19at 15:31; Start 09/04/19 at 15:15; Stop 09/04/19 at 15:16; Status DC Lorazepam (Ativan Inj) 2 mg 1X ONCE IVP Last administered on 09/04/19at 15:30; Start 09/04/19 at 15:15; Stop 09/04/19 at 15:16; Status DC Enoxaparin Sodium (Lovenox 40mg Syringe) 40 mg Q24H SQ Last administered on 09/23/19at 17:44; Start 09/04/19 at 17:00; Stop 09/25/19 at 06:50; Status DC Lorazepam (Ativan Inj) 1 mg PRN Q4HRS PRN IVP ANXIETY / AGITATION MILD-MOD Last administered on 09/18/19at 15:55; Start 09/04/19 at 19:15; Stop 09/20/19 at 11:45; Status DC Lorazepam (Ativan Inj) 2 mg PRN Q4HRS PRN IVP ANXIETY / AGITATION SEVERE Last administered on 09/19/19at 07:55; Start 09/04/19 at 19:15; Stop 09/20/19 at 11:45; Status DC Fentanyl Citrate (Fentanyl 2ml Vial) 50 mcg PRN Q4HRS PRN IVP SEVERE PAIN Last administered on 10/01/19at 05:15; Start 09/05/19 at 13:15; Stop 10/02/19 at 09:29; Status DC Fentanyl Citrate (Fentanyl 2ml Vial) 25 mcg PRN Q4HRS PRN IVP MODERATE PAIN Last administered on 10/01/19at 00:27; Start 09/05/19 at 13:15; Stop 10/02/19 at 09:30; Status DC Potassium Chloride 90 meq/ Magnesium Sulfate 20 meq/ Multivitamins 10 ml/Chromium/ Copper/Manganese/ Seleni/Zn 1 ml/ Insulin Human Regular 15 unit/ Total Parenteral Nutrition/Amino Acids/Dextrose/ Fat Emulsion Intravenous 1,890 ml @ 78.75 mls/ hr TPN CONT IV Last administered on 09/05/19at 22:18; Start 09/05/19 at 22:00; Stop 09/06/19 at 21:59; Status DC Furosemide (Lasix) 40 mg 1X ONCE IVP Last administered on 09/05/19at 21:51; Start 09/05/19 at 21:45; Stop 09/05/19 at 21:48; Status DC Albumin Human 100 ml @ 100 mls/hr 1X PRN PRN IV SEE COMMENTS; Start 09/06/19 at 01:30 Furosemide (Lasix) 40 mg [id number] IVP Last administered on 09/21/19at 08:04; Start 09/06/19 at 14:00; Stop 09/21/19 at 13:07; Status DC Potassium Chloride 90 meq/ Magnesium Sulfate 20 meq/ Multivitamins 10 ml/Chromium/ Copper/Manganese/ Seleni/Zn 1 ml/ Insulin Human Regular 15 unit/ Total Parenteral Nutrition/Amino Acids/Dextrose/ Fat Emulsion Intravenous 1,800 ml @ 75 mls/hr TPN CONT IV Last administered on 09/06/19at 22:31; Start 09/06/19 at 22:00; Stop 09/07/19 at 21:59; Status DC Potassium Chloride 90 meq/ Magnesium Sulfate 20 meq/ Multivitamins 10 ml/Chromium/ Copper/Manganese/ Seleni/Zn 1 ml/ Insulin Human Regular 15 unit/ Total Parenteral Nutrition/Amino Acids/Dextrose/ Fat Emulsion Intravenous 1,800 ml @ 75 mls/hr TPN CONT IV Last administered on 09/07/19at 22:28; Start 09/07/19 at 22:00; Stop 09/08/19 at 21:59; Status DC Potassium Chloride 110 meq/ Magnesium Sulfate 20 meq/ Multivitamins 10 ml/Chromium/ Copper/Manganese/ Seleni/Zn 1 ml/ Insulin Human Regular 15 unit/ Total Parenteral Nutrition/Amino Acids/Dextrose/ Fat Emulsion Intravenous 1,800 ml @ 75 mls/hr TPN CONT IV Last administered on 09/08/19at 22:01; Start 09/08/19 at 22:00; Stop 09/09/19 at 21:59; Status DC Saliva Substitute (Biotene Moisturizing Mouth) 2 spray PRN Q15MIN PRN PO DRY MOUTH; Start 09/08/19 at 11:00 Potassium Chloride 110 meq/ Magnesium Sulfate 20 meq/ Multivitamins 10 ml/Chromium/ Copper/Manganese/ Seleni/Zn 1 ml/ Insulin Human Regular 15 unit/ Total Parenteral Nutrition/Amino Acids/Dextrose/ Fat Emulsion Intravenous 1,800 ml @ 75 mls/hr TPN CONT IV Last administered on 09/09/19at 22:21; Start 09/09/19 at 22:00; Stop 09/10/19 at 21:59; Status DC Potassium Chloride 110 meq/ Magnesium Sulfate 20 meq/ Multivitamins 10 ml/Chromium/ Copper/Manganese/ Seleni/Zn 1 ml/ Insulin Human Regular 15 unit/ Total Parenteral Nutrition/Amino Acids/Dextrose/ Fat Emulsion Intravenous 1,800 ml @ 75 mls/hr TPN CONT IV Last administered on 09/10/19at 22:04; Start 09/10/19 at 22:00; Stop 09/11/19 at 21:59; Status DC Potassium Chloride 110 meq/ Magnesium Sulfate 20 meq/ Multivitamins 10 ml/Chromium/ Copper/Manganese/ Seleni/Zn 1 ml/ Insulin Human Regular 15 unit/ Total Parenteral Nutrition/Amino Acids/Dextrose/ Fat Emulsion Intravenous 1,800 ml @ 75 mls/hr TPN CONT IV Last administered on 09/11/19at 22:48; Start 09/11/19 at 22:00; Stop 09/12/19 at 21:59; Status DC Potassium Chloride 70 meq/ Magnesium Sulfate 20 meq/ Multivitamins 10 ml/Chromium/ Copper/Manganese/ Seleni/Zn 1 ml/ Insulin Human Regular 15 unit/ Total Parenteral Nutrition/Amino Acids/Dextrose/ Fat Emulsion Intravenous 1,800 ml @ 75 mls/hr TPN CONT IV Last administered on 09/12/19at 21:39; Start 09/12/19 at 22:00; Stop 09/13/19 at 21:59; Status DC Meropenem 500 mg/ Sodium Chloride 50 ml @ 100 mls/hr Q6HRS IV Last administered on 09/14/19at 06:02; Start 09/12/19 at 18:00; Stop 09/14/19 at 09:59; Status DC Barium Sulfate (Varibar Thin Liquid Apple) 148 gm 1X ONCE PO ; Start 09/13/19 at 11:45; Stop 09/13/19 at 11:49; Status DC Potassium Chloride 70 meq/ Magnesium Sulfate 20 meq/ Multivitamins 10 ml/Chromium/ Copper/Manganese/ Seleni/Zn 1 ml/ Insulin Human Regular 15 unit/ Total Parenteral Nutrition/Amino Acids/Dextrose/ Fat Emulsion Intravenous 1,800 ml @ 75 mls/hr TPN CONT IV Last administered on 09/13/19at 22:27; Start 09/13/19 at 22:00; Stop 09/14/19 at 21:59; Status DC Piperacillin Sod/ Tazobactam Sod 3.375 gm/Sodium Chloride 50 ml @ 100 mls/hr Q6HRS IV Last administered on 09/22/19at 06:10; Start 09/14/19 at 12:00; Stop 09/22/19 at 07:26; Status DC Potassium Chloride 70 meq/ Magnesium Sulfate 20 meq/ Multivitamins 10 ml/Chromium/ Copper/Manganese/ Seleni/Zn 1 ml/ Insulin Human Regular 15 unit/ Total Parenteral Nutrition/Amino Acids/Dextrose/ Fat Emulsion Intravenous 1,800 ml @ 75 mls/hr TPN CONT IV Last administered on 09/14/19at 22:03; Start 09/14/19 at 22:00; Stop 09/15/19 at 21:59; Status DC Potassium Chloride 70 meq/ Magnesium Sulfate 20 meq/ Multivitamins 10 ml/Chromium/ Copper/Manganese/ Seleni/Zn 1 ml/ Insulin Human Regular 15 unit/ Total Parenteral Nutrition/Amino Acids/Dextrose/ Fat Emulsion Intravenous 1,800 ml @ 75 mls/hr TPN CONT IV Last administered on 09/15/19at 22:33; Start 09/15/19 at 22:00; Stop 09/16/19 at 21:59; Status DC Potassium Chloride 70 meq/ Magnesium Sulfate 20 meq/ Multivitamins 10 ml/Chromium/ Copper/Manganese/ Seleni/Zn 1 ml/ Insulin Human Regular 15 unit/ Total Parenteral Nutrition/Amino Acids/Dextrose/ Fat Emulsion Intravenous 1,800 ml @ 75 mls/hr TPN CONT IV Last administered on 09/16/19at 23:13; Start 09/16/19 at 22:00; Stop 09/17/19 at 21:59; Status DC Potassium Chloride 80 meq/ Magnesium Sulfate 20 meq/ Multivitamins 10 ml/Chromium/ Copper/Manganese/ Seleni/Zn 1 ml/ Insulin Human Regular 15 unit/ Total Parenteral Nutrition/Amino Acids/Dextrose/ Fat Emulsion Intravenous 1,800 ml @ 75 mls/hr TPN CONT IV Last administered on 09/17/19at 22:30; Start 09/17/19 at 22:00; Stop 09/18/19 at 21:59; Status DC Potassium Chloride 80 meq/ Magnesium Sulfate 20 meq/ Multivitamins 10 ml/Chromium/ Copper/Manganese/ Seleni/Zn 1 ml/ Insulin Human Regular 15 unit/ Total Parenteral Nutrition/Amino Acids/Dextrose/ Fat Emulsion Intravenous 1,800 ml @ 75 mls/hr TPN CONT IV Last administered on 09/18/19at 21:54; Start 09/18/19 at 22:00; Stop 09/19/19 at 21:59; Status DC Potassium Chloride/Water 100 ml @ 100 mls/hr 1X ONCE IV Last administered on 09/19/19at 10:15; Start 09/19/19 at 10:00; Stop 09/19/19 at 10:59; Status DC Potassium Chloride 90 meq/ Magnesium Sulfate 20 meq/ Multivitamins 10 ml/Chromium/ Copper/Manganese/ Seleni/Zn 1 ml/ Insulin Human Regular 20 unit/ Total Parenteral Nutrition/Amino Acids/Dextrose/ Fat Emulsion Intravenous 1,800 ml @ 75 mls/hr TPN CONT IV Last administered on 09/19/19at 22:28; Start 09/19/19 at 22:00; Stop 09/20/19 at 21:59; Status DC Potassium Chloride 90 meq/ Magnesium Sulfate 20 meq/ Multivitamins 10 ml/Chromium/ Copper/Manganese/ Seleni/Zn 1 ml/ Insulin Human Regular 20 unit/ Total Parenteral Nutrition/Amino Acids/Dextrose/ Fat Emulsion Intravenous 1,800 ml @ 75 mls/hr TPN CONT IV Last administered on 09/20/19at 22:08; Start 09/20/19 at 22:00; Stop 09/21/19 at 21:59; Status DC Lorazepam (Ativan Inj) 0.25 mg PRN Q4HRS PRN IVP ANXIETY / AGITATION Last administered on 10/15/19at 13:37; Start 09/21/19 at 07:30 Potassium Chloride 90 meq/ Magnesium Sulfate 20 meq/ Multivitamins 10 ml/Chromium/ Copper/Manganese/ Seleni/Zn 1 ml/ Insulin Human Regular 20 unit/ Total Parenteral Nutrition/Amino Acids/Dextrose/ Fat Emulsion Intravenous 1,800 ml @ 75 mls/hr TPN CONT IV Last administered on 09/21/19at 23:13; Start 09/21/19 at 22:00; Stop 09/22/19 at 21:59; Status DC Furosemide (Lasix) 40 mg DAILY IVP Last administered on 09/23/19at 11:14; Start 09/21/19 at 13:30; Stop 09/25/19 at 09:12; Status DC Fluoxetine HCl (PROzac) 20 mg QHS PEG Last administered on 10/22/19at 20:32; St art 09/22/19 at 21:00 Fentanyl (Duragesic 50mcg/ Hr Patch) 1 patch Q72H TD Last administered on 09/22/19at 21:22; Start 09/22/19 at 21:00; Stop 10/01/19 at 12:00; Status DC Potassium Chloride 40 meq/ Potassium Acetate 60 meq/Magnesium Sulfate 10 meq/ Multivitamins 10 ml/Chromium/ Copper/Manganese/ Seleni/Zn 1 ml/ Insulin Human Regular 20 unit/ Total Parenteral Nutrition/Amino Acids/Dextrose/ Fat Emulsion Intravenous 1,800 ml @ 75 mls/hr TPN CONT IV Last administered on 09/23/19at 00:03; Start 09/22/19 at 22:00; Stop 09/23/19 at 21:59; Status DC Potassium Acetate 80 meq/Magnesium Sulfate 5 meq/ Multivitamins 10 ml/Chromium/ Copper/Manganese/ Seleni/Zn 1 ml/ Insulin Human Regular 20 unit/ Total Parenteral Nutrition/Amino Acids/Dextrose/ Fat Emulsion Intravenous 1,920 ml @ 80 mls/hr TPN CONT IV Last administered on 09/23/19at 21:59; Start 09/23/19 at 22:00; Stop 09/24/19 at 21:59; Status DC Potassium Acetate 60 meq/Magnesium Sulfate 5 meq/ Multivitamins 10 ml/Chromium/ Copper/Manganese/ Seleni/Zn 1 ml/ Insulin Human Regular 30 unit/ Total Parenteral Nutrition/Amino Acids/Dextrose/ Fat Emulsion Intravenous 1,920 ml @ 80 mls/hr TPN CONT IV Last administered on 09/24/19at 21:54; Start 09/24/19 at 22:00; Stop 09/25/19 at 21:59; Status DC Norepinephrine Bitartrate 8 mg/ Dextrose 258 ml @ 13.332 mls/ hr CONT PRN IV PER PROTOCOL Last administered on 10/20/19at 09:09; Start 09/25/19 at 06:30 Albumin Human 500 ml @ 125 mls/hr 1X ONCE IV Last administered on 09/25/19at 08:10; Start 09/25/19 at 08:15; Stop 09/25/19 at 12:14; Status DC Potassium Acetate 40 meq/Magnesium Sulfate 5 meq/ Multivitamins 10 ml/Chromium/ Copper/Manganese/ Seleni/Zn 1 ml/ Insulin Human Regular 30 unit/ Total Parenteral Nutrition/Amino Acids/Dextrose/ Fat Emulsion Intravenous 1,920 ml @ 80 mls/hr TPN CONT IV Last administered on 09/25/19at 22:23; Start 09/25/19 at 22:00; Stop 09/26/19 at 21:59; Status DC Meropenem 1 gm/ Sodium Chloride 100 ml @ 200 mls/hr Q8HRS IV ; Start 09/25/19 at 14:00; Status Cancel Meropenem 1 gm/ Sodium Chloride 100 ml @ 200 mls/hr Q8HRS IV Last administered on 09/25/19at 11:04; Start 09/25/19 at 10:00; Stop 09/25/19 at 13:00; Status DC Meropenem 1 gm/ Sodium Chloride 100 ml @ 200 mls/hr Q12HR IV Last administered on 10/13/19at 08:27; Start 09/25/19 at 21:00; Stop 10/13/19 at 08:56; Status DC Sodium Chloride 1,000 ml @ 1,000 mls/hr 1X ONCE IV Last administered on 09/25/19at 11:06; Start 09/25/19 at 10:45; Stop 09/25/19 at 11:44; Status DC Micafungin Sodium 100 mg/Dextrose 100 ml @ 100 mls/hr Q24H IV Last administered on 10/12/19at 12:34; Start 09/25/19 at 11:00; Stop 10/13/19 at 08:56; Status DC Daptomycin 410 mg/ Sodium Chloride 50 ml @ 100 mls/hr Q24H IV Last administered on 09/27/19at 13:33; Start 09/25/19 at 14:00; Stop 09/28/19 at 08:30; Status DC Midazolam HCl (Versed) 2 mg STK-MED ONCE .ROUTE ; Start 09/25/19 at 14:47; Stop 09/25/19 at 14:48; Status DC Fentanyl Citrate (Fentanyl 2ml Vial) 100 mcg STK-MED ONCE .ROUTE ; Start 09/25/19 at 14:47; Stop 09/25/19 at 14:48; Status DC Flumazenil (Romazicon) 0.5 mg STK-MED ONCE IV ; Start 09/25/19 at 14:48; Stop 09/25/19 at 14:48; Status DC Naloxone HCl (Narcan) 0.4 mg STK-MED ONCE .ROUTE ; Start 09/25/19 at 14:48; Stop 09/25/19 at 14:48; Status DC Lidocaine HCl (Lidocaine 1% 20ml Vial) 20 ml STK-MED ONCE .ROUTE ; Start 09/25/19 at 14:48; Stop 09/25/19 at 14:48; Status DC Midazolam HCl (Versed) 2 mg 1X ONCE IV Last administered on 09/25/19at 15:28; Start 09/25/19 at 15:00; Stop 09/25/19 at 15:01; Status DC Fentanyl Citrate (Fentanyl 2ml Vial) 100 mcg 1X ONCE IV Last administered on 09/25/19at 15:28; Start 09/25/19 at 15:00; Stop 09/25/19 at 15:01; Status DC Lidocaine HCl (Lidocaine 1% 20ml Vial) 20 ml 1X ONCE INJ Last administered on 09/25/19at 15:30; Start 09/25/19 at 15:00; Stop 09/25/19 at 15:01; Status DC Sodium Chloride 1,000 ml @ 100 mls/hr Q10H IV Last administered on 10/04/19at 07:30; Start 09/25/19 at 20:00; Stop 10/04/19 at 11:26; Status DC Sodium Bicarbonate (Sodium Bicarb Adult 8.4% Syr) 50 meq 1X ONCE IV Last administered on 09/25/19at 21:47; Start 09/25/19 at 22:00; Stop 09/25/19 at 22:01; Status DC Potassium Acetate 40 meq/Magnesium Sulfate 5 meq/ Multivitamins 10 ml/Chromium/ Copper/Manganese/ Seleni/Zn 1 ml/ Insulin Human Regular 30 unit/ Total Parenteral Nutrition/Amino Acids/Dextrose/ Fat Emulsion Intravenous 1,920 ml @ 80 mls/hr TPN CONT IV Last administered on 09/26/19at 22:28; Start 09/26/19 at 22:00; Stop 09/27/19 at 21:59; Status DC Sodium Chloride 500 ml @ 500 mls/hr 1X ONCE IV Last administered on 09/27/19at 06:39; Start 09/27/19 at 06:45; Stop 09/27/19 at 07:44; Status DC Potassium Acetate 40 meq/Magnesium Sulfate 5 meq/ Multivitamins 10 ml/Chromium/ Copper/Manganese/ Seleni/Zn 1 ml/ Insulin Human Regular 30 unit/ Total Parenteral Nutrition/Amino Acids/Dextrose/ Fat Emulsion Intravenous 1,920 ml @ 80 mls/hr TPN CONT IV Last administered on 09/27/19at 22:03; Start 09/27/19 at 22:00; Stop 09/28/19 at 21:59; Status DC Metoprolol Tartrate (Lopressor Vial) 5 mg PRN Q6HRS PRN IVP HYPERTENSION Last administered on 10/06/19at 10:14; Start 09/28/19 at 09:00 Potassium Acetate 40 meq/Magnesium Sulfate 5 meq/ Multivitamins 10 ml/Chromium/ Copper/Manganese/ Seleni/Zn 1 ml/ Insulin Human Regular 30 unit/ Total Paren teral Nutrition/Amino Acids/Dextrose/ Fat Emulsion Intravenous 1,920 ml @ 80 mls/hr TPN CONT IV Last administered on 09/28/19at 21:26; Start 09/28/19 at 22:00; Stop 09/29/19 at 21:59; Status DC Potassium Acetate 40 meq/Magnesium Sulfate 5 meq/ Multivitamins 10 ml/Chromium/ Copper/Manganese/ Seleni/Zn 1 ml/ Insulin Human Regular 30 unit/ Total Parenteral Nutrition/Amino Acids/Dextrose/ Fat Emulsion Intravenous 1,920 ml @ 80 mls/hr TPN CONT IV Last administered on 09/29/19at 23:23; Start 09/29/19 at 22:00; Stop 09/30/19 at 21:59; Status DC Potassium Acetate 40 meq/Magnesium Sulfate 5 meq/ Multivitamins 10 ml/Chromium/ Copper/Manganese/ Seleni/Zn 1 ml/ Insulin Human Regular 30 unit/ Total Parenteral Nutrition/Amino Acids/Dextrose/ Fat Emulsion Intravenous 1,920 ml @ 80 mls/hr TPN CONT IV Last administered on 09/30/19at 21:35; Start 09/30/19 at 22:00; Stop 10/01/19 at 21:59; Status DC Furosemide (Lasix) 20 mg 1X ONCE IVP Last administered on 10/01/19at 06:26; Start 10/01/19 at 06:15; Stop 10/01/19 at 06:16; Status DC Methylprednisolone Sodium Succinate (SOLU-Medrol 125MG VIAL) 125 mg 1X ONCE IV Last administered on 10/01/19at 06:26; Start 10/01/19 at 06:15; Stop 10/01/19 at 06:16; Status DC Albuterol/ Ipratropium (Duoneb) 3 ml Q4HRS NEB Last administered on 10/23/19at 15:13; Start 10/01/19 at 08:00 Fentanyl Citrate 30 ml @ 0 mls/hr CONT PRN IV SEE PROTOCOL Last administered on 10/22/19at 08:03; Start 10/01/19 at 06:00; Stop 10/22/19 at 12:42; Status DC Propofol 100 ml @ 0 mls/hr CONT PRN IV SEE PROTOCOL Last administered on 10/08/19at 23:50; Start 10/01/19 at 06:00 Fentanyl Citrate (Fentanyl 2ml Vial) 25 mcg PRN Q1HR PRN IV SEE COMMENTS; Start 10/01/19 at 06:00 Fentanyl Citrate (Fentanyl 2ml Vial) 50 mcg PRN Q1HR PRN IV SEE COMMENTS; Start 10/01/19 at 06:00 Chlorhexidine Gluconate (Peridex) 15 ml BID MM ; Start 10/01/19 at 09:00; Stop 10/01/19 at 07:58; Status DC Potassium Acetate 40 meq/Magnesium Sulfate 5 meq/ Multivitamins 10 ml/Chromium/ Copper/Manganese/ Seleni/Zn 1 ml/ Insulin Human Regular 30 unit/ Total Parenteral Nutrition/Amino Acids/Dextrose/ Fat Emulsion Intravenous 1,920 ml @ 80 mls/hr TPN CONT IV Last administered on 10/01/19at 21:19; Start 10/01/19 at 22:00; Stop 10/02/19 at 21:59; Status DC Acetylcysteine (Mucomyst 20% Resp Treatment) 600 mg BID NEB Last administered on 10/07/19at 09:33; Start 10/01/19 at 21:00; Stop 10/07/19 at 10:39; Status DC Magnesium Sulfate 100 ml @ 25 mls/hr 1X ONCE IV Last administered on 10/01/19at 15:48; Start 10/01/19 at 15:45; Stop 10/01/19 at 19:44; Status DC Potassium Acetate 40 meq/Magnesium Sulfate 5 meq/ Multivitamins 10 ml/Chromium/ Copper/Manganese/ Seleni/Zn 1 ml/ Insulin Human Regular 30 unit/ Total Parenteral Nutrition/Amino Acids/Dextrose/ Fat Emulsion Intravenous 1,920 ml @ 80 mls/hr TPN CONT IV Last administered on 10/02/19at 21:35; Start 10/02/19 at 22:00; Stop 10/03/19 at 21:59; Status DC Potassium Chloride/Water 100 ml @ 100 mls/hr Q1H IV Last administered on 10/03/19at 08:31; Start 10/03/19 at 07:00; Stop 10/03/19 at 08:59; Status DC Potassium Acetate 40 meq/Magnesium Sulfate 5 meq/ Multivitamins 10 ml/Chromium/ Copper/Manganese/ Seleni/Zn 1 ml/ Insulin Human Regular 30 unit/ Total Parenteral Nutrition/Amino Acids/Dextrose/ Fat Emulsion Intravenous 1,920 ml @ 80 mls/hr TPN CONT IV Last administered on 10/03/19at 21:54; Start 10/03/19 at 22:00; Stop 10/04/19 at 19:34; Status DC Lidocaine HCl (Buffered Lidocaine 1%) 3 ml STK-MED ONCE .ROUTE ; Start 10/03/19 at 12:14; Stop 10/03/19 at 12:14; Status DC Lidocaine HCl (Buffered Lidocaine 1%) 3 ml 1X ONCE IJ Last administered on 10/03/19at 13:11; Start 10/03/19 at 13:00; Stop 10/03/19 at 13:01; Status DC Magnesium Sulfate 50 ml @ 25 mls/hr 1X ONCE IV ; Start 10/04/19 at 08:15; Stop 10/04/19 at 10:14; Status DC Potassium Acetate 40 meq/Magnesium Sulfate 10 meq/ Multivitamins 10 ml/Chromium/ Copper/Manganese/ Seleni/Zn 1 ml/ Insulin Human Regular 20 unit/ Total Pa renteral Nutrition/Amino Acids/Dextrose/ Fat Emulsion Intravenous 1,920 ml @ 80 mls/hr TPN CONT IV Last administered on 10/04/19at 21:32; Start 10/04/19 at 22:00; Stop 10/05/19 at 21:59; Status DC Potassium Chloride/Water 100 ml @ 100 mls/hr Q1H IV Last administered on 10/05/19at 09:12; Start 10/05/19 at 08:00; Stop 10/05/19 at 09:59; Status DC Alteplase, Recombinant (Cathflo For Central Catheter Clearance) 4 mg 1X ONCE INT CAT ; Start 10/05/19 at 09:15; Stop 10/05/19 at 09:16; Status UNV Alteplase, Recombinant (Cathflo For Central Catheter Clearance) 4 mg 1X ONCE INT CAT ; Start 10/05/19 at 09:15; Stop 10/05/19 at 09:16; Status UNV Alteplase, Recombinant (Cathflo For Central Catheter Clearance) 4 mg 1X ONCE INT CAT ; Start 10/05/19 at 09:15; Stop 10/05/19 at 09:16; Status UNV Alteplase, Recombinant 4 mg/ Sodium Chloride 20 ml @ 20 mls/hr 1X ONCE IV Last administered on 10/05/19at 10:10; Start 10/05/19 at 10:00; Stop 10/05/19 at 10:59; Status DC Alteplase, Recombinant 4 mg/ Sodium Chloride 20 ml @ 20 mls/hr 1X ONCE IV Last administered on 10/05/19at 10:09; Start 10/05/19 at 10:00; Stop 10/05/19 at 10:59; Status DC Alteplase, Recombinant 4 mg/ Sodium Chloride 20 ml @ 20 mls/hr 1X ONCE IV Last administered on 10/05/19at 10:09; Start 10/05/19 at 10:00; Stop 10/05/19 at 10:59; Status DC Potassium Acetate 60 meq/Magnesium Sulfate 10 meq/ Multivitamins 10 ml/Chromium/ Copper/Manganese/ Seleni/Zn 1 ml/ Insulin Human Regular 20 unit/ Total Parenteral Nutrition/Amino Acids/Dextrose/ Fat Emulsion Intravenous 1,920 ml @ 80 mls/hr TPN CONT IV Last administered on 10/05/19at 21:55; Start 10/05/19 at 22:00; Stop 10/06/19 at 21:59; Status DC Albumin Human 500 ml @ 125 mls/hr 1X ONCE IV Last administered on 10/06/19at 12:01; Start 10/06/19 at 11:15; Stop 10/06/19 at 15:14; Status DC Sodium Chloride 500 ml @ 500 mls/hr 1X ONCE IV Last administered on 10/06/19at 13:50; Start 10/06/19 at 11:15; Stop 10/06/19 at 12:14; Status DC Potassium Acetate 60 meq/Magnesium Sulfate 14 meq/ Multivitamins 10 ml/Chromium/ Copper/Manganese/ Seleni/Zn 1 ml/ Insulin Human Regular 20 unit/ Total Parenteral Nutrition/Amino Acids/Dextrose/ Fat Emulsion Intravenous 1,920 ml @ 80 mls/hr TPN CONT IV Last administered on 10/06/19at 22:26; Start 10/06/19 at 22:00; Stop 10/07/19 at 21:59; Status DC Ciprofloxacin/ Dextrose 200 ml @ 200 mls/hr Q12HR IV Last administered on 10/13/19at 08:27; Start 10/06/19 at 21:00; Stop 10/13/19 at 08:56; Status DC Albumin Human 250 ml @ 62.5 mls/hr 1X ONCE IV Last administered on 10/07/19at 11:09; Start 10/07/19 at 11:00; Stop 10/07/19 at 14:59; Status DC Furosemide (Lasix) 20 mg 1X ONCE IVP Last administered on 10/07/19at 14:52; Start 10/07/19 at 10:45; Stop 10/07/19 at 10:49; Status DC Potassium Acetate 60 meq/Magnesium Sulfate 14 meq/ Multivitamins 10 ml/Chromium/ Copper/Manganese/ Seleni/Zn 1 ml/ Insulin Human Regular 15 unit/ Total Parenteral Nutrition/Amino Acids/Dextrose/ Fat Emulsion Intravenous 1,920 ml @ 80 mls/hr TPN CONT IV Last administered on 10/07/19at 22:08; Start 10/07/19 at 22:00; Stop 10/08/19 at 21:59; Status DC Potassium Acetate 60 meq/Magnesium Sulfate 14 meq/ Multivitamins 10 ml/Chromium/ Copper/Manganese/ Seleni/Zn 1 ml/ Insulin Human Regular 15 unit/ Total Parenteral Nutrition/Amino Acids/Dextrose/ Fat Emulsion Intravenous 1,920 ml @ 80 mls/hr TPN CONT IV Last administered on 10/08/19at 22:12; Start 10/08/19 at 22:00; Stop 10/09/19 at 21:59; Status DC Potassium Acetate 60 meq/Magnesium Sulfate 14 meq/ Multivitamins 10 ml/Chromium/ Copper/Manganese/ Seleni/Zn 1 ml/ Insulin Human Regular 15 unit/ Total Parenteral Nutrition/Amino Acids/Dextrose/ Fat Emulsion Intravenous 1,920 ml @ 80 mls/hr TPN CONT IV Last administered on 10/09/19at 22:22; Start 10/09/19 at 22:00; Stop 10/10/19 at 21:59; Status DC Furosemide (Lasix) 20 mg 1X ONCE IVP Last administered on 10/10/19at 11:07; Start 10/10/19 at 10:30; Stop 10/10/19 at 10:34; Status DC Potassium Acetate 60 meq/Magnesium Sulfate 14 meq/ Multivitamins 10 ml/Chromium/ Copper/Manganese/ Seleni/Zn 1 ml/ Insulin Human Regular 15 unit/ Sodium Chloride 20 meq/Total Parenteral Nutrition/Amino Acids/Dextrose/ Fat Emulsion Intravenous 1,920 ml @ 80 mls/hr TPN CONT IV Last administered on 10/10/19at 21:54; Start 10/10/19 at 22:00; Stop 10/11/19 at 21:59; Status DC Potassium Acetate 30 meq/Magnesium Sulfate 14 meq/ Multivitamins 10 ml/Chromium/ Copper/Manganese/ Seleni/Zn 1 ml/ Insulin Human Regular 15 unit/ Sodium Chloride 20 meq/Potassium Chloride 30 meq/ Total Parenteral Nutrition/Amino Acids/Dextrose/ Fat Emulsion Intravenous 1,920 ml @ 80 mls/hr TPN CONT IV Last administered on 10/11/19at 21:46; Start 10/11/19 at 22:00; Stop 10/12/19 at 21:59; Status DC Sodium Chloride 80 meq/Potassium Chloride 30 meq/ Potassium Acetate 30 meq/Magnesium Sulfate 14 meq/ Multivitamins 10 ml/Chromium/ Copper/Manganese/ Seleni/Zn 1 ml/ Insulin Human Regular 15 unit/ Total Parenteral Nutrition/Amino Acids/Dextrose/ Fat Emulsion Intravenous 1,920 ml @ 80 mls/hr TPN CONT IV Last administered on 10/12/19at 22:33; Start 10/12/19 at 22:00; Stop 10/13/19 at 21:59; Status DC Furosemide (Lasix) 40 mg 1X ONCE IVP Last administered on 10/12/19at 16:27; Start 10/12/19 at 15:30; Stop 10/12/19 at 15:33; Status DC Albumin Human 250 ml @ 62.5 mls/hr 1X ONCE IV Last administered on 10/12/19at 16:27; Start 10/12/19 at 15:30; Stop 10/12/19 at 19:29; Status DC Sodium Chloride 80 meq/Potassium Chloride 30 meq/ Potassium Acetate 30 meq/M agnesium Sulfate 14 meq/ Multivitamins 10 ml/Chromium/ Copper/Manganese/ Seleni/Zn 1 ml/ Insulin Human Regular 15 unit/ Total Parenteral Nutrition/Amino Acids/Dextrose/ Fat Emulsion Intravenous 1,920 ml @ 80 mls/hr TPN CONT IV Last administered on 10/13/19at 22:25; Start 10/13/19 at 22:00; Stop 10/14/19 at 21:59; Status DC Sodium Chloride 80 meq/Potassium Chloride 30 meq/ Potassium Acetate 30 meq/Magnesium Sulfate 14 meq/ Multivitamins 10 ml/Chromium/ Copper/Manganese/ Seleni/Zn 1 ml/ Insulin Human Regular 15 unit/ Total Parenteral Nutrition/Amino Acids/Dextrose/ Fat Emulsion Intravenous 1,920 ml @ 80 mls/hr TPN CONT IV Last administered on 10/14/19at 21:32; Start 10/14/19 at 22:00; Stop 10/15/19 at 21:59; Status DC Sodium Chloride 80 meq/Potassium Chloride 30 meq/ Potassium Acetate 30 meq/Magnesium Sulfate 14 meq/ Multivitamins 10 ml/Chromium/ Copper/Manganese/ Seleni/Zn 1 ml/ Insulin Human Regular 15 unit/ Total Parenteral Nutrition/Amino Acids/Dextrose/ Fat Emulsion Intravenous 1,920 ml @ 80 mls/hr TPN CONT IV Last administered on 10/15/19at 21:53; Start 10/15/19 at 22:00; Stop 10/16/19 at 21:59; Status DC Acetylcysteine (Mucomyst 20% Resp Treatment) 600 mg RTBID NEB Last administered on 10/23/19at 08:45; Start 10/15/19 at 12:00 Sodium Chloride 80 meq/Potassium Chloride 30 meq/ Potassium Acetate 30 meq/Magnesium Sulfate 14 meq/ Multivitamins 10 ml/Chromium/ Copper/Manganese/ Seleni/Zn 1 ml/ Insulin Human Regular 15 unit/ Total Parenteral Nutrition/Amino Acids/Dextrose/ Fat Emulsion Intravenous 1,920 ml @ 80 mls/hr TPN CONT IV Last administered on 10/16/19at 22:06; Start 10/16/19 at 22:00; Stop 10/17/19 at 21:59; Status DC Meropenem 500 mg/ Sodium Chloride 50 ml @ 100 mls/hr Q6HRS IV Last administered on 10/23/19at 12:48; Start 10/16/19 at 18:00 Daptomycin 500 mg/ Sodium Chloride 50 ml @ 100 mls/hr Q24H IV Last administered on 10/22/19at 20:03; Start 10/16/19 at 19:00 Sodium Chloride 80 meq/Potassium Chloride 30 meq/ Potassium Acetate 30 meq/Magnesium Sulfate 14 meq/ Multivitamins 10 ml/Chromium/ Copper/Manganese/ Seleni/Zn 1 ml/ Insulin Human Regular 15 unit/ Total Parenteral Nutrition/Amino Acids/Dextrose/ Fat Emulsion Intravenous 1,920 ml @ 80 mls/hr TPN CONT IV Last administered on 10/17/19at 22:09; Start 10/17/19 at 22:00; Stop 10/18/19 at 21:59; Status DC Heparin Sodium (Porcine) 1000 unit/Sodium Chloride 1,001 ml @ 1,001 mls/hr 1X ONCE IRR ; Start 10/18/19 at 06:00; Stop 10/18/19 at 06:59; Status DC Propofol (Diprivan) 200 mg STK-MED ONCE IV ; Start 10/18/19 at 07:44; Stop 10/18/19 at 07:44; Status DC Lidocaine HCl (Lidocaine Pf 2% Vial) 5 ml STK-MED ONCE .ROUTE ; Start 10/18/19 at 07:44; Stop 10/18/19 at 07:44; Status DC Fentanyl Citrate (Fentanyl 2ml Vial) 100 mcg STK-MED ONCE .ROUTE ; Start 10/18/19 at 07:44; Stop 10/18/19 at 07:44; Status DC Rocuronium Hitchcock (Zemuron) 100 mg STK-MED ONCE .ROUTE ; Start 10/18/19 at 07:44; Stop 10/18/19 at 07:44; Status DC Micafungin Sodium 100 mg/Dextrose 100 ml @ 100 mls/hr Q24H IV Last administered on 10/23/19at 08:22; Start 10/18/19 at 08:30 Bupivacaine HCl/ Epinephrine Bitart (Sensorcain-Epi 0.5%-1:[id number] Mpf) 30 ml STK-MED ONCE .ROUTE ; Start 10/18/19 at 08:34; Stop 10/18/19 at 08:35; Status DC Iohexol (Omnipaque 300 Mg/ml) 50 ml STK-MED ONCE .ROUTE Last administered on 10/18/19at 13:30; Start 10/18/19 at 08:35; Stop 10/18/19 at 08:35; Status DC Sodium Chloride 80 meq/Potassium Chloride 30 meq/ Potassium Acetate 30 meq /Magnesium Sulfate 14 meq/ Multivitamins 10 ml/Chromium/ Copper/Manganese/ Seleni/Zn 1 ml/ Insulin Human Regular 15 unit/ Total Parenteral Nutrition/Amino Acids/Dextrose/ Fat Emulsion Intravenous 1,920 ml @ 80 mls/hr TPN CONT IV Last administered on 10/19/19at 01:22; Start 10/18/19 at 22:00; Stop 10/19/19 at 21:59; Status DC Phenylephrine HCl (Brayden-Synephrine Inj) 10 mg STK-MED ONCE .ROUTE ; Start 10/18/19 at 10:15; Stop 10/18/19 at 10:15; Status DC Desflurane (Suprane) 90 ml STK-MED ONCE IH ; Start 10/18/19 at 10:18; Stop 10/18/19 at 10:19; Status DC Albumin Human 500 ml @ As Directed STK-MED ONCE IV ; Start 10/18/19 at 11:06; Stop 10/18/19 at 11:06; Status DC Vasopressin (Vasostrict) 20 unit STK-MED ONCE .ROUTE ; Start 10/18/19 at 12:23; Stop 10/18/19 at 12:23; Status DC Phenylephrine HCl (Brayden-Synephrine Inj) 10 mg STK-MED ONCE .ROUTE ; Start 10/18/19 at 13:33; Stop 10/18/19 at 13:33; Status DC Phenylephrine HCl (Brayden-Synephrine Inj) 10 mg STK-MED ONCE .ROUTE ; Start 10/18/19 at 13:33; Stop 10/18/19 at 13:33; Status DC Ondansetron HCl (Zofran) 4 mg STK-MED ONCE .ROUTE ; Start 10/18/19 at 13:33; Stop 10/18/19 at 13:33; Status DC Enoxaparin Sodium (Lovenox 40mg Syringe) 40 mg Q24H SQ Last administered on 10/23/19at 08:21; Start 10/19/19 at 08:00 Sodium Chloride (Normal Saline Flush) 3 ml QSHIFT PRN IV AFTER MEDS AND BLOOD DRAWS; Start 10/18/19 at 14:45 Naloxone HCl (Narcan) 0.4 mg PRN Q2MIN PRN IV SEE INSTRUCTIONS; Start 10/18/19 at 14:45 Sodium Chloride 1,000 ml @ 25 mls/hr Q24H IV Last administered on 10/22/19at 12:37; Start 10/18/19 at 14:33 Morphine Sulfate (Morphine Sulfate) 1 mg PRN Q1HR PRN IV PAIN; Start 10/18/19 at 14:45 Midazolam HCl 100 mg/Sodium Chloride 100 ml @ 1 mls/hr CONT PRN IV SEE I/O RECORD Last administered on 10/21/19at 18:48; Start 10/18/19 at 14:45 Phenylephrine HCl (PHENYLEPHRINE in 0.9% NACL PF) 1 mg STK-MED ONCE IV ; Start 10/18/19 at 14:44; Stop 10/18/19 at 14:45; Status DC Ephedrine Sulfate (ePHEDrine PF IN SALINE SYRINGE) 50 mg STK-MED ONCE IV ; Start 10/18/19 at 14:45; Stop 10/18/19 at 14:45; Status DC Vasopressin 20 unit/Dextrose 101 ml @ 12 mls/hr CONT PRN IV SEE I/O RECORD Last administered on 10/23/19at 14:31; Start 10/18/19 at 15:30 Sodium Chloride 1,000 ml @ 1,000 mls/hr 1X ONCE IV Last administered on 10/18/19at 15:42; Start 10/18/19 at 15:45; Stop 10/18/19 at 16:44; Status DC Albumin Human 500 ml @ 125 mls/hr 1X ONCE IV ; Start 10/18/19 at 16:00; Stop 10/18/19 at 19:59; Status DC Albumin Human 500 ml @ 125 mls/hr PRN Q1HR PRN IV PER PROTOCOL; Start 10/18/19 at 15:45 Magnesium Sulfate 50 ml @ 25 mls/hr 1X ONCE IV Last administered on 10/18/19at 17:02; Start 10/18/19 at 16:30; Stop 10/18/19 at 18:29; Status DC Sodium Bicarbonate (Sodium Bicarb Adult 8.4% Syr) 50 meq STK-MED ONCE .ROUTE ; Start 10/18/19 at 16:20; Stop 10/18/19 at 16:20; Status DC Sodium Bicarbonate (Sodium Bicarb Adult 8.4% Syr) 100 meq 1X ONCE IV Last administered on 10/18/19at 17:07; Start 10/18/19 at 16:30; Stop 10/18/19 at 16:31; Status DC Sodium Bicarbonate 150 meq/Dextrose 1,150 ml @ 75 mls/hr 1X ONCE IV Last administered on 10/18/19at 20:02; Start 10/18/19 at 16:30; Stop 10/19/19 at 07:49; Status DC Sodium Chloride 80 meq/Potassium Chloride 30 meq/ Potassium Acetate 30 meq/Magnesium Sulfate 14 meq/ Multivitamins 10 ml/Chromium/ Copper/Manganese/ Seleni/Zn 1 ml/ Insulin Human Regular 15 unit/ Total Parenteral Nutrition/Amino Acids/Dextrose/ Fat Emulsion Intravenous 1,920 ml @ 80 mls/hr TPN CONT IV Last administered on 10/19/19at 23:05; Start 10/19/19 at 22:00; Stop 10/20/19 at 21:59; Status DC Sodium Chloride 100 meq/Potassium Chloride 30 meq/ Potassium Acetate 30 meq/Magnesium Sulfate 12 meq/ Multivitamins 10 ml/Chromium/ Copper/Manganese/ Seleni/Zn 1 ml/ Insulin Human Regular 15 unit/ Total Parenteral Nutrition/Amino Acids/Dextrose/ Fat Emulsion Intravenous 1,920 ml @ 80 mls/hr TPN CONT IV Last administered on 10/20/19at 21:52; Start 10/20/19 at 22:00; Stop 10/21/19 at 21:59; Status DC Sodium Chloride 100 meq/Potassium Chloride 30 meq/ Potassium Acetate 30 meq/Magnesium Sulfate 12 meq/ Multivitamins 10 ml/Chromium/ Copper/Manganese/ Seleni/Zn 1 ml/ Insulin Human Regular 15 unit/ Total Parenteral Nutrition/Amino Acids/Dextrose/ Fat Emulsion Intravenous 1,920 ml @ 80 mls/hr TPN CONT IV Last administered on 10/21/19at 21:46; Start 10/21/19 at 22:00; Stop 10/22/19 at 21:59; Status DC Sodium Chloride 100 meq/Potassium Chloride 30 meq/ Potassium Acetate 30 meq/Magnesium Sulfate 12 meq/ Multivitamins 10 ml/Chromium/ Copper/Manganese/ Seleni/Zn 1 ml/ Insulin Human Regular 15 unit/ Total Parenteral Nutrition/Amino Acids/Dextrose/ Fat Emulsion Intravenous 1,800 ml @ 75 mls/hr TPN CONT IV Last administered on 10/22/19at 22:04; Start 10/22/19 at 22:00; Stop 10/23/19 at 21:59 Fentanyl Citrate 55 ml @ 0 mls/hr CONT PRN IV SEE COMMENTS Last administered on 10/22/19at 14:00; Start 10/22/19 at 13:00 Sodium Chloride 100 meq/Potassium Chloride 30 meq/ Potassium Acetate 30 meq/Magnesium Sulfate 12 meq/ Multivitamins 10 ml/Chromium/ Copper/Manganese/ Seleni/Zn 1 ml/ Insulin Human Regular 15 unit/ Total Parenteral Nutrition/Amino Acids/Dextrose/ Fat Emulsion Intravenous 1,680 ml @ 70 mls/hr TPN CONT IV ; Start 10/23/19 at 22:00; Stop 10/24/19 at 21:59 Active Scripts Active Reported Bisoprolol Fumarate 5 Mg Tablet 10 Mg PO DAILY Vitals/I & O Vital Sign - Last 24 Hours 10/22/19 10/22/19 10/22/19 10/22/19 16:00 16:00 17:00 17:03 Temp 99.0 99.0 Pulse 86 88 Resp 18 18 B/P (MAP) 114/64 (81) 111/62 (78) Pulse Ox 100 100 99 O2 Delivery Mechanical Ventilator Ventilator Ventilator Ventilator 10/22/19 10/22/19 10/22/194/20 17:30 18:00 18:28 19:00 Pulse 86 82 88 Resp 17 17 21 B/P (MAP) 110/59 (76) 94/52 (66) 108/59 (75) Pulse Ox 100 100 100 100 O2 Delivery Ventilator Ventilator Ventilator Ventilator 10/22/19 10/22/19 10/22/19 10/22/19 20:00 20:00 21:00 22:00 Temp 98.0 98.0 Pulse 86 101 105 Resp 21 21 17 B/P (MAP) 110/55 (73) 93/50 (64) 85/43 (57) Pulse Ox 100 100 100 O2 Delivery Ventilator Mechanical Ventilator Ventilator Ventilator 10/22/19 10/22/19 10/23/19 10/23/19 23:00 23:59 00:00 00:00 Temp 98.8 98.8 Pulse 102 101 Resp 21 14 B/P (MAP) 98/48 (65) 101/51 (68) Pulse Ox 100 100 100 O2 Delivery Ventilator Ventilator Mechanical Ventilator Ventilator 10/23/19 10/23/19 10/23/19 10/23/19 01:00 02:00 03:00 04:00 Pulse 96 96 93 Resp 17 17 15 B/P (MAP) 97/48 (64) 93/48 (63) 90/49 (63) Pulse Ox 100 100 100 O2 Delivery Ventilator Ventilator Ventilator Mechanical Ventilator 10/23/19 10/23/19 10/23/19 10/23/19 04:00 04:16 05:00 06:00 Temp 98.7 98.7 Pulse 96 102 95 Resp 15 15 15 B/P (MAP) 91/49 (63) 90/49 (63) 101/53 (69) Pulse Ox 100 100 100 100 O2 Delivery Ventilator Ventilator Ventilator Ventilator 10/23/19 10/23/19 10/23/19 10/23/19 07:00 07:30 08:00 08:00 Temp 98.2 98.2 Pulse 94 92 96 Resp 14 13 14 B/P (MAP) 96/48 (64) 95/53 (67) 81/48 (59) Pulse Ox 100 99 100 O2 Delivery Ventilator Ventilator Ventilator Mechanical Ventilator 10/23/19 10/23/19 10/23/19 10/23/19 08:30 08:45 08:50 09:00 Pulse 92 88 Resp 14 12 B/P (MAP) 95/53 (67) 103/60 (74) Pulse Ox 97 98 98 98 O2 Delivery Ventilator Ventilator Ventilator Ventilator 10/23/19 10/23/19 10/23/19 10/23/19 10:00 11:00 11:28 12:00 Pulse 92 90 Resp 13 13 B/P (MAP) 95/51 (66) 100/52 (68) Pulse Ox 98 100 99 O2 Delivery Ventilator Ventilator Ventilator Mechanical Ventilator 10/23/19 10/23/19 10/23/19 10/23/19 12:00 13:00 14:00 15:13 Temp 98.2 98.2 Pulse 82 84 88 Resp 13 13 12 B/P (MAP) 102/52 (69) 97/49 (65) 102/55 (71) Pulse Ox 100 100 100 100 O2 Delivery Ventilator Ventilator Ventilator Ventilator Intake and Output 10/22/19 10/22/19 10/23/19 14:59 22:59 06:59 Intake Total 100 ml 1902 ml 1422.2 ml Output Total 785 ml 1067 ml 890 ml Balance -685 ml 835 ml 532.2 ml Justicifation of Admission Dx: Justifications for Admission: Justification of Admission Dx: Yes GREG HERRERA MD Oct 23, 2019 15:46
[2019-10-23] MEDS: fentaNYL HIGH DOSE PCA 55 ML IV PRN (17:13)
[2019-10-23] MEDS: DAPTOmycin (GENERIC) IVPB 500 MG in IV NORMAL SALINE 50ML 50 ML IV SCH (19:21)
[2019-10-23] MEDS ORDERED: TOTAL PARENTERAL NUTRITION IV SCH ×10 (22:00)
[2019-10-23] MEDS ORDERED: [UNRECOGNIZED DRUG - OTHER] IV SCH ×10 (22:00)
[2019-10-23] MEDS ORDERED: AMINO ACID IV SCH ×10 (22:00)
[2019-10-23] MEDS ORDERED: DEXTROSE 70% IV SCH ×10 (22:00)
[2019-10-24] VITALS (23 sets, daily range): BP systolic 92–165; BP diastolic 51–100
[2019-10-24] MEDS: IPRATRPIUM/ALBUTEROL 0.5/2.5MG 3 ML NEBU. NEB SCH ×5 (03:44→19:52)
[2019-10-24] MEDS: MEROPENEM 500 MG in IV NORMAL SALINE 50ML 50 ML IV SCH ×4 (06:23→23:54)
[2019-10-24] MEDS: INSULIN LISPRO 300 UNITS/3 ML VIAL. SQ SCH ×3 (06:26→16:52)
[2019-10-24 06:37] LABS: BASO % 0 % (0-3); EOS # 0.2 x10^3/uL (0.0-0.7); EOS % 1 % (0-3); HEMATOCRIT 23.4 % (36.0-47.0); HEMOGLOBIN 7.7 g/dL (12.0-15.5); LYMPH # 1.2 x10^3/uL (1.0-4.8); LYMPH % 7 % (24-48); MEAN CORPUSCULAR HEMOGLOBIN 30 pg (25-35); MEAN CORPUSCULAR HGB CONC 33 g/dL (31-37); MEAN CORPUSCULAR VOLUME 89 fL (79-100); MONO % 6 % (0-9); NEUT # 15.5 x10^3/uL (1.8-7.7); NEUT % 86 % (31-73); PLATELET COUNT 375 x10^3/uL (140-400); RED BLOOD COUNT 2.62 x10^6/uL (3.50-5.40); RED CELL DISTRIBUTION WIDTH 14.5 % (11.5-14.5)
[2019-10-24 06:54] LABS: CALCIUM 9.2 mg/dL (8.5-10.1); CREATININE 0.5 mg/dL (0.6-1.0); GFR 131.1; MAGNESIUM 1.8 mg/dL (1.8-2.4); PHOSPHORUS 3.4 mg/dL (2.6-4.7); POTASSIUM 4.5 mmol/L (3.5-5.1)
--- NOTE | 2019-10-24 07:44 | PDOC ---
Infectious Disease Note Subjective Subjective Sedated Remains on ventilator support, FiO2 40% 5 PEEP No fevers last 72 hrs TPN Still on vasopressin, off levophed ROS ROS Unable to obtain Vital Sign Vital Signs Vital Signs Date Time Temp Pulse Resp B/P (MAP) Pulse Ox O2 Delivery O2 Flow Rate FiO2 10/24/19 06:00 80 22 106/57 (73) 100 Ventilator 10/24/19 04:00 98.8 98.8 Physical Exam PHYSICAL EXAM GENERAL: Sedated, ill appearing HEENT: Pupils equal, oral cavity dry. + NGT NECK: Tracheostomy LUNGS: Diminished aeration bases, CT on left HEART: S1, S2, regular w/ PVCs ABDOMEN: Sightly Distended, bowel sounds hypoactive, soft, goyal x 2, 3 KAYLIN drains, G-J tube and + wound vac : Lind in place EXTREMITIES: Generalized edema, no cyanosis. SCDs & Podus boots bilaterally SKIN: warm touch. No signs of rash. LUE-PICC without signs of complications LUE art-line out, mottling left forearm, some better. RP palpable, cap refill brisk. Labs Lab Laboratory Tests Test 10/23/19 12:49 10/23/19 18:06 10/23/19 23:53 10/24/19 06:15 Glucose (Fingerstick) 169 mg/dL (70-99) 132 mg/dL (70-99) 147 mg/dL (70-99) White Blood Count 18.0 x10^3/uL (4.0-11.0) Red Blood Count 2.62 x10^6/uL (3.50-5.40) Hemoglobin 7.7 g/dL (12.0-15.5) Hematocrit 23.4 % (36.0-47.0) Mean Corpuscular Volume 89 fL (79-100) Mean Corpuscular Hemoglobin 30 pg (25-35) Mean Corpuscular Hemoglobin Concent 33 g/dL (31-37) Red Cell Distribution Width 14.5 % (11.5-14.5) Platelet Count 375 x10^3/uL (140-400) Neutrophils (%) (Auto) 86 % (31-73) Lymphocytes (%) (Auto) 7 % (24-48) Monocytes (%) (Auto) 6 % (0-9) Eosinophils (%) (Auto) 1 % (0-3) Basophils (%) (Auto) 0 % (0-3) Neutrophils # (Auto) 15.5 x10^3/uL (1.8-7.7) Lymphocytes # (Auto) 1.2 x10^3/uL (1.0-4.8) Monocytes # (Auto) 1.0 x10^3/uL (0.0-1.1) Eosinophils # (Auto) 0.2 x10^3/uL (0.0-0.7) Basophils # (Auto) 0.0 x10^3/uL (0.0-0.2) Sodium Level 135 mmol/L (136-145) Potassium Level 4.5 mmol/L (3.5-5.1) Chloride Level 103 mmol/L (98-107) Carbon Dioxide Level 29 mmol/L (21-32) Anion Gap 3 (6-14) Blood Urea Nitrogen 19 mg/dL (7-20) Creatinine 0.5 mg/dL (0.6-1.0) Estimated GFR (Cockcroft-Gault) 131.1 Glucose Level 155 mg/dL (70-99) Calcium Level 9.2 mg/dL (8.5-10.1) Phosphorus Level 3.4 mg/dL (2.6-4.7) Magnesium Level 1.8 mg/dL (1.8-2.4) Triglycerides Level 207 mg/dL (0-150) Test 10/24/19 06:21 Glucose (Fingerstick) 151 mg/dL (70-99) Micro 6/7 GRAM STAIN Final Final GRAM NEGATIVE RODS:MODERATE SQUAMOUS EPI CELL:NOT APPLICABLE PMN (WBCs):RARE YEAST:MODERATE Unless otherwise specified, Testing Performed by: [address] [address] For Inquires, the Physician may contact the Microbiology department at [phone] ANAEROBIC-AEROBIC CULTURE Preliminary Preliminary MANY GRAM NEGATIVE RODS on 09/27/19 at 1158 FINAL ID= [[email or web address]] PSEUDOMONAS AERUGINOSA ANTIMICROBIAL SUSCEPTIBILITY Preliminary Comment NEG ALEXANDRA 56 PSEUDOMONAS AERUGINOSA ANTIBIOTIC RESULT INTERPRETATION AMIKACIN <=16 S AZTREONAM >16 R CEFTAZIDIME >16 R CIPROFLOXACIN <=0.25 S CEFEPIME 16 I CEFTAZIDIME/AVIBACTAM <=4 S GENTAMICIN <=2 S CONTINUED ON NEXT PAGE RUN DATE: 09/29/19 [facility] *LIVE* PAGE 2 RUN TIME: 1016 Specimen Inquiry SPEC: [id number] PATIENT: SCOTT CUELLAR [id number] (Continued) Procedure Result ANTIMICROBIAL SUSCEPTIBILITY Preliminary (continued) LEVOFLOXACIN <=0.5 S MEROPENEM <=1 S PIPERACILLIN/TAZOBACTAM 64 S TOBRAMYCIN <=2 S Unless otherwise specified, Testing Performed by: [facility] [address] [place] [address] For Inquires, the Physician may contact the Microbiology department at [phone] CT Scan 09/23 IMPRESSION: 1. Removal of the percutaneous pigtail drainage catheters since the prior exam. Sequela of pancreatitis with extensive pseudocysts again demonstrated, the right-sided collections are slightly larger since the prior exam, the left-sided collections are stable. See above. 2. Moderate to large left pleural effusion with atelectasis and collapse of most of the left lower lobe, stable. Small right pleural effusion is stable. 3. Gallstone. Objective Assessment Patient with prolonged hospitalization more than 3 months Multiple medical problems Multiple surgical procedures S/P Exp. Lap, SAURABH, subtotal cholecystectomy with cholangiogram, G-J tube placement & pancreatic necrosectomy on October 17 YEAST/PSA Leucocytosis - leukomoid reaction likely postoperative - improving Fever intermittently source likely GI Acute gallstone pancreatitis with persistent necrosis -CT a/p 07/27. Increased ascites. 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 status post KAYLIN drain placement; C. parapsilosis. s/p drain 08/23 + yeast & high amylase; s/p additional drain on 08/25. Drains removed. -08/23. fluid devyn parapsilosis fluid, amylase high - 09/23 showed multiple pseudocysts, slight larger on the right. s/p drains x 3, 09/24. + PSAE (MDRO-R Cefepime, Zosyn ALEXANDRA < 64) and yeast, -09/24 s/p drain replacement x 3; fluid cult PSAE (MDRO), yeast; treated Ascites s/p paracentesis 08/02 & 08/23. C. parapsilosis Cholelithiasis with thickening of the gallbladder wall. JUANA, Hyperkalemia, Metabolic acidosis off dialysis Acute hypoxic resp failure. trach/vent. sputum 09/30 + PSAE (I merrem) Pleural effusions s/p left thoracentesis, 08/29. no culture. s/p left chest tube, 10/02 no growth Hypocalcemia Prediabetes HTN Anemia s/p RBCs Plan Plan of Care PSA from 10/17 I to Meropenem but she is AF and WBC improving so will try to hold changing abx to Cipro and or Avycaz to try and save potential abx options continue dapto, merrem and micafungin Last CK 17 Monitor labs f/u cultures/susceptibilities still pending wound care /drain management as directed Monitor left forearm Contact isolation for CRE/MDRO Critically ill D/w nursing WILLY BARAKAT MD Oct 24, 2019 07:44
[2019-10-24] MEDS: ACETYLCYSTEINE 20% for RESP TX 600 MG/3 ML. NEB SCH ×2 (08:00→19:52)
[2019-10-24] MEDS: ENOXAPARIN 40 MG/0.4 ML SYRINGE. SQ SCH (08:39)
[2019-10-24] MEDS: PANTOPRAZOLE IV PUSH 40 MG VIAL. IVP SCH (08:39)
[2019-10-24] MEDS: MICAFUNGIN 100 MG in IV DEXTROSE 5% 100ML 100 ML IV SCH (08:39)
--- NOTE | 2019-10-24 08:59 | PDOC ---
PULMONARY PROGRESS NOTES Subjective On assist control ventilation sedated Vitals Vital Signs Date Time Temp Pulse Resp B/P (MAP) Pulse Ox O2 Delivery O2 Flow Rate FiO2 10/24/19 08:07 100 Ventilator 10/24/19 07:00 76 22 126/76 (93) 10/24/19 04:00 98.8 98.8 Comments trach/sedated on vent Lungs: Crackles Cardiovascular: S1, S2 Abdomen: Soft, Non-tender, Other (multiple KAYLIN drains ) Extremities: Other (+1 BLE edema) Skin: Warm Labs Laboratory Tests Test 10/22/19 11:50 10/22/19 18:09 10/23/19 00:20 10/23/19 05:57 Glucose (Fingerstick) 149 mg/dL (70-99) 127 mg/dL (70-99) 126 mg/dL (70-99) 120 mg/dL (70-99) Test 10/23/19 06:00 10/23/19 12:49 10/23/19 18:06 10/23/19 23:53 Sodium Level 134 mmol/L (136-145) Potassium Level 4.7 mmol/L (3.5-5.1) Chloride Level 102 mmol/L (98-107) Carbon Dioxide Level 29 mmol/L (21-32) Anion Gap 3 (6-14) Blood Urea Nitrogen 21 mg/dL (-20) Creatinine 0.6 mg/dL (0.6-1.0) Estimated GFR (Cockcroft-Gault) 106.3 Glucose Level 126 mg/dL (70-99) Calcium Level 8.8 mg/dL (8.5-10.1) Glucose (Fingerstick) 169 mg/dL (70-99) 132 mg/dL (70-99) 147 mg/dL (70-99) Test 10/24/19 06:15 10/24/19 06:21 White Blood Count 18.0 x10^3/uL (4.0-11.0) Red Blood Count 2.62 x10^6/uL (3.50-5.40) Hemoglobin 7.7 g/dL (12.0-15.5) Hematocrit 23.4 % (36.0-47.0) Mean Corpuscular Volume 89 fL (79-100) Mean Corpuscular Hemoglobin 30 pg (25-35) Mean Corpuscular Hemoglobin Concent 33 g/dL (31-37) Red Cell Distribution Width 14.5 % (11.5-14.5) Platelet Count 375 x10^3/uL (140-400) Neutrophils (%) (Auto) 86 % (31-73) Lymphocytes (%) (Auto) 7 % (24-48) Monocytes (%) (Auto) 6 % (0-9) Eosinophils (%) (Auto) 1 % (0-3) Basophils (%) (Auto) 0 % (0-3) Neutrophils # (Auto) 15.5 x10^3/uL (1.8-7.7) Lymphocytes # (Auto) 1.2 x10^3/uL (1.0-4.8) Monocytes # (Auto) 1.0 x10^3/uL (0.0-1.1) Eosinophils # (Auto) 0.2 x10^3/uL (0.0-0.7) Basophils # (Auto) 0.0 x10^3/uL (0.0-0.2) Sodium Level 135 mmol/L (136-145) Potassium Level 4.5 mmol/L (3.5-5.1) Chloride Level 103 mmol/L (98-107) Carbon Dioxide Level 29 mmol/L (21-32) Anion Gap 3 (6-14) Blood Urea Nitrogen 19 mg/dL (7-20) Creatinine 0.5 mg/dL (0.6-1.0) Estimated GFR (Cockcroft-Gault) 131.1 Glucose Level 155 mg/dL (70-99) Calcium Level 9.2 mg/dL (8.5-10.1) Phosphorus Level 3.4 mg/dL (2.6-4.7) Magnesium Level 1.8 mg/dL (1.8-2.4) Triglycerides Level 207 mg/dL (0-150) Glucose (Fingerstick) 151 mg/dL (70-99) Laboratory Tests Test 10/23/19 12:49 10/23/19 18:06 10/23/19 23:53 10/24/19 06:15 Glucose (Fingerstick) 169 mg/dL (70-99) 132 mg/dL (70-99) 147 mg/dL (70-99) White Blood Count 18.0 x10^3/uL (4.0-11.0) Red Blood Count 2.62 x10^6/uL (3.50-5.40) Hemoglobin 7.7 g/dL (12.0-15.5) Hematocrit 23.4 % (36.0-47.0) Mean Corpuscular Volume 89 fL (79-100) Mean Corpuscular Hemoglobin 30 pg (25-35) Mean Corpuscular Hemoglobin Concent 33 g/dL (31-37) Red Cell Distribution Width 14.5 % (11.5-14.5) Platelet Count 375 x10^3/uL (140-400) Neutrophils (%) (Auto) 86 % (31-73) Lymphocytes (%) (Auto) 7 % (24-48) Monocytes (%) (Auto) 6 % (0-9) Eosinophils (%) (Auto) 1 % (0-3) Basophils (%) (Auto) 0 % (0-3) Neutrophils # (Auto) 15.5 x10^3/uL (1.8-7.7) Lymphocytes # (Auto) 1.2 x10^3/uL (1.0-4.8) Monocytes # (Auto) 1.0 x10^3/uL (0.0-1.1) Eosinophils # (Auto) 0.2 x10^3/uL (0.0-0.7) Basophils # (Auto) 0.0 x10^3/uL (0.0-0.2) Sodium Level 135 mmol/L (136-145) Potassium Level 4.5 mmol/L (3.5-5.1) Chloride Level 103 mmol/L (98-107) Carbon Dioxide Level 29 mmol/L (21-32) Anion Gap 3 (6-14) Blood Urea Nitrogen 19 mg/dL (7-20) Creatinine 0.5 mg/dL (0.6-1.0) Estimated GFR (Cockcroft-Gault) 131.1 Glucose Level 155 mg/dL (70-99) Calcium Level 9.2 mg/dL (8.5-10.1) Phosphorus Level 3.4 mg/dL (2.6-4.7) Magnesium Level 1.8 mg/dL (1.8-2.4) Triglycerides Level 207 mg/dL (0-150) Test 10/24/19 06:21 Glucose (Fingerstick) 151 mg/dL (70-99) Medications Active Scripts Medications Dose Route/Sig Max Daily Dose Days Date Category Bisoprolol Fumarate 5 Mg Tablet 10 Mg PO DAILY 07/04/19 Reported Comments CXR 10/16/19 IMPRESSION: No significant interval change compared to 10/13/2019. ct abdomen /pelvis 09/23 1. Removal of the percutaneous pigtail drainage catheters since the prior exam. Sequela of pancreatitis with extensive pseudocysts again demonstrated, the right-sided collections are slightly larger since the prior exam, the left-sided collections are stable. See above. 2. Moderate to large left pleural effusion with atelectasis and collapse of most of the left lower lobe, stable. Small right pleural effusion is stable. 3. Gallstone. ct chest 10/02 reviewed GRAM NEG COCCOBACILLI:MANY SQUAMOUS EPI CELL:RARE PMN (WBCs):FEW Unless otherwise specified, Testing Performed by: [address] [id number] For Inquires, the Physician may contact the Microbiology department at [phone] RESPIRATORY CULTURE Final Final MANY GRAM NEGATIVE RODS on 10/03/19 at 1107 FINAL ID= [PSEUDOMONAS [email or web address]] MICRO CHARGES PSEUDOMONAS AERUGINOSA ANTIMICROBIAL SUSCEPTIBILITY Final Comment NEG ALEXANDRA 56 PSEUDOMONAS AERUGINOSA ANTIBIOTIC RESULT INTERPRETATION AMIKACIN <=16 S AZTREONAM <=4 S CEFTAZIDIME <=1 S CIPROFLOXACIN <=0.25 S CEFEPIME <=2 S CEFTAZIDIME/AVIBACTAM <=4 S GENTAMICIN <=2 S LEVOFLOXACIN <=0.5 S Impression . IMPRESSION: 1. Acute hypoxemic respiratory failure secondary to ARDS status post trach, developed anemia /, blood drainage from RLQ abdomen drain site, and surrounding firmness / developed septic shock / from abdomen source, required levo 6/7 s/p 3 new drains /7 with brown color drainage, 2. Gallstone pancreatitis, now with ongoing bleeding from prior drain. Anemic. s/p Tx multiple units over several days 3. septic shock/sepsis, recurrent 09/24, source abdomen. , 4. Acute kidney injury-, Off HD--renal function decling. suspect JUANA on CKD due to hypotension , improved now 5. Acute gallstone pancreatitis. 6. Hypoalbuminemia. 7. Moderate persistent effusions, s/p left thora 08/29, reaccumulation of left effusion. O2 requirement not changed. 8. Fever- ,hypotension. suspect recurrent sepsis/ likely pancreatic source. Per ID, per surgery-- 9. Chronic anemia-- ongoing / s/p PRBC 10. Covid 19 testing negative 11. Moderate to large ascites-S/P paracentisis 12.S/P paracentisis with 4 liters removed on 08/03/19 13. S/P IR drain placement on 08/26/2019, removal, re inserted 09/24 14. Depression/Anxiety 15. Increase effusion, ? loculated/ s/p chest tube.. drainage slowing down. 10/17 S/P Exploratory laparotomy, lysis of adhesions, subtotal cholecystectomy with cholangiogram, gastrojejunostomy tube placement, pancreatic necrosectomy leukocytosis- improving Plan . Will discontinue sedation and try pressure support as tolerated S/P Exploratory laparotomy, lysis of adhesions, subtotal cholecystectomy with cholangiogram, gastrojejunostomy tube placement, pancreatic necrosectomy with multiple drains in place-- on 10/17 ABX per ID Follow surgery recs Continue TF and TPN for nutrition support Vasopressors for hypotension to keep MAP above 65 DVT/GI PPX D/W RN and RT CC time 30 minutes HARMEET BEE MD Oct 24, 2019 08:59
--- NOTE | 2019-10-24 09:38 | PDOC ---
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 Metabolic encephalopathy. Fevers. Metabolic acidosis. Diffuse pulmonary infiltrate. Pleural effusion. Pancreatitis, necrotizing. Gallstone. Leukocytosis. Lymphopenia. Electrolytes imbalances. Hyperglycemia. DM. HTN. HLD. Anemia. Abnormal CXR. Obesity. Ascites and pleural effusion Ileus with vomiting Anemia JUANA Hyperkalemia Metabolic acidosis Hypertension S/P trache, back on vent Anemia S/P IR drain placement, 09/24 Hypotension, intermittently requiring Levophed She had exploratory laparotomy, lysis of adhesions, subtotal cholecystectomy with cholangiogram, gastrojejunostomy tube placement, pancreatic necrosectomy on 10/17 Plan Keppra if she has further seizures. Treat medical diseases. Subjective None Objective Vital Signs Date Time Temp Pulse Resp B/P (MAP) Pulse Ox O2 Delivery O2 Flow Rate FiO2 10/24/19 08:07 100 Ventilator 10/24/19 07:00 76 22 126/76 (93) 10/24/19 04:00 98.8 98.8 Intake and Output 10/24/19 07:00 Intake Total 2975 ml Output Total 3130 ml Balance -155 ml IV Total 2305 ml Tube Feeding 420 ml Other 250 ml Output Urine Total 1890 ml Chest Tube Drainage Total 100 ml Drainage Total 1140 ml PHYSICAL EXAM Sedated, on vent PERRL. EOMI. CN: no focal findings. Muscle tone: normal. Muscle strength: minimal pain response DTR: 1+ Plantar reflex: Silent Gait: not examined in bed. Sensory exam: not testable Cerebellar: not testable Review of Relevant I have reviewed the following items kolby (where applicable) has been applied. Labs Laboratory Tests Test 10/22/19 11:50 10/22/19 18:09 10/23/19 00:20 10/23/19 05:57 Glucose (Fingerstick) 149 mg/dL (70-99) 127 mg/dL (70-99) 126 mg/dL (70-99) 120 mg/dL (70-99) Test 10/23/19 06:00 10/23/19 12:49 10/23/19 18:06 10/23/19 23:53 Sodium Level 134 mmol/L (136-145) Potassium Level 4.7 mmol/L (3.5-5.1) Chloride Level 102 mmol/L (98-107) Carbon Dioxide Level 29 mmol/L (21-32) Anion Gap 3 (6-14) Blood Urea Nitrogen 21 mg/dL (7-20) Creatinine 0.6 mg/dL (0.6-1.0) Estimated GFR (Cockcroft-Gault) 106.3 Glucose Level 126 mg/dL (70-99) Calcium Level 8.8 mg/dL (8.5-10.1) Glucose (Fingerstick) 169 mg/dL (70-99) 132 mg/dL (70-99) 147 mg/dL (70-99) Test 10/24/19 06:15 10/24/19 06:21 White Blood Count 18.0 x10^3/uL (4.0-11.0) Red Blood Count 2.62 x10^6/uL (3.50-5.40) Hemoglobin 7.7 g/dL (12.0-15.5) Hematocrit 23.4 % (36.0-47.0) Mean Corpuscular Volume 89 fL (79-100) Mean Corpuscular Hemoglobin 30 pg (25-35) Mean Corpuscular Hemoglobin Concent 33 g/dL (31-37) Red Cell Distribution Width 14.5 % (11.5-14.5) Platelet Count 375 x10^3/uL (140-400) Neutrophils (%) (Auto) 86 % (31-73) Lymphocytes (%) (Auto) 7 % (24-48) Monocytes (%) (Auto) 6 % (0-9) Eosinophils (%) (Auto) 1 % (0-3) Basophils (%) (Auto) 0 % (0-3) Neutrophils # (Auto) 15.5 x10^3/uL (1.8-7.7) Lymphocytes # (Auto) 1.2 x10^3/uL (1.0-4.8) Monocytes # (Auto) 1.0 x10^3/uL (0.0-1.1) Eosinophils # (Auto) 0.2 x10^3/uL (0.0-0.7) Basophils # (Auto) 0.0 x10^3/uL (0.0-0.2) Sodium Level 135 mmol/L (136-145) Potassium Level 4.5 mmol/L (3.5-5.1) Chloride Level 103 mmol/L (98-107) Carbon Dioxide Level 29 mmol/L (21-32) Anion Gap 3 (6-14) Blood Urea Nitrogen 19 mg/dL (7-20) Creatinine 0.5 mg/dL (0.6-1.0) Estimated GFR (Cockcroft-Gault) 131.1 Glucose Level 155 mg/dL (70-99) Calcium Level 9.2 mg/dL (8.5-10.1) Phosphorus Level 3.4 mg/dL (2.6-4.7) Magnesium Level 1.8 mg/dL (1.8-2.4) Triglycerides Level 207 mg/dL (0-150) Glucose (Fingerstick) 151 mg/dL (70-99) Laboratory Tests Test 10/23/19 12:49 10/23/19 18:06 10/23/19 23:53 10/24/19 06:15 Glucose (Fingerstick) 169 mg/dL (70-99) 132 mg/dL (70-99) 147 mg/dL (70-99) White Blood Count 18.0 x10^3/uL (4.0-11.0) Red Blood Count 2.62 x10^6/uL (3.50-5.40) Hemoglobin 7.7 g/dL (12.0-15.5) Hematocrit 23.4 % (36.0-47.0) Mean Corpuscular Volume 89 fL (79-100) Mean Corpuscular Hemoglobin 30 pg (25-35) Mean Corpuscular Hemoglobin Concent 33 g/dL (31-37) Red Cell Distribution Width 14.5 % (11.5-14.5) Platelet Count 375 x10^3/uL (140-400) Neutrophils (%) (Auto) 86 % (31-73) Lymphocytes (%) (Auto) 7 % (24-48) Monocytes (%) (Auto) 6 % (0-9) Eosinophils (%) (Auto) 1 % (0-3) Basophils (%) (Auto) 0 % (0-3) Neutrophils # (Auto) 15.5 x10^3/uL (1.8-7.7) Lymphocytes # (Auto) 1.2 x10^3/uL (1.0-4.8) Monocytes # (Auto) 1.0 x10^3/uL (0.0-1.1) Eosinophils # (Auto) 0.2 x10^3/uL (0.0-0.7) Basophils # (Auto) 0.0 x10^3/uL (0.0-0.2) Sodium Level 135 mmol/L (136-145) Potassium Level 4.5 mmol/L (3.5-5.1) Chloride Level 103 mmol/L (98-107) Carbon Dioxide Level 29 mmol/L (21-32) Anion Gap 3 (6-14) Blood Urea Nitrogen 19 mg/dL (7-20) Creatinine 0.5 mg/dL (0.6-1.0) Estimated GFR (Cockcroft-Gault) 131.1 Glucose Level 155 mg/dL (70-99) Calcium Level 9.2 mg/dL (8.5-10.1) Phosphorus Level 3.4 mg/dL (2.6-4.7) Magnesium Level 1.8 mg/dL (1.8-2.4) Triglycerides Level 207 mg/dL (0-150) Test 10/24/19 06:21 Glucose (Fingerstick) 151 mg/dL (70-99) Microbiology 10/18/19 Gram Stain - Final, Resulted 10/18/19 Aerobic and Anaerobic Culture - Preliminary, Resulted 10/18/19 Antimicrobic Susceptibility - Preliminary, Resulted 10/16/19 Blood Culture - Final, Complete NO GROWTH AFTER 5 DAYS 10/03/19 Gram Stain - Final, Complete 10/03/19 Aerobic and Anaerobic Culture - Final, Complete 10/01/19 Gram Stain Evaluation - Final, Complete 10/01/19 Respiratory Culture - Final, Complete 10/01/19 Antimicrobic Susceptibility - Final, Complete 09/25/19 Urine Culture - Final, Complete 09/17/19 Gram Stain - Final, Complete 09/17/19 Aerobic Culture - Final, Complete Medications Current Medications Sodium Chloride 1,000 ml @ 1,000 mls/hr Q1H IV Last administered on 07/04/19at 03:00; Start 07/04/19 at 03:00; Stop 07/04/19 at 03:59; Status DC Ondansetron HCl (Zofran) 4 mg 1X ONCE IVP Last administered on 07/04/19at 03:27; Start 07/04/19 at 03:00; Stop 07/04/19 at 03:01; Status DC Morphine Sulfate (Morphine Sulfate) 4 mg 1X ONCE IV ; Start 07/04/19 at 03:00; Stop 07/04/19 at 03:01; Status Cancel Ketorolac Tromethamine (Toradol 30mg Vial) 30 mg 1X ONCE IV Last administered on 07/04/19at 02:54; Start 07/04/19 at 03:00; Stop 07/04/19 at 03:01; Status DC Fentanyl Citrate (Fentanyl 2ml Vial) 25 mcg 1X ONCE IVP Last administered on 07/04/19at 03:23; Start 07/04/19 at 03:30; Stop 07/04/19 at 03:31; Status DC Fentanyl Citrate (Fentanyl 2ml Vial) 100 mcg STK-MED ONCE .ROUTE ; Start 07/04/19 at 03:18; Stop 07/04/19 at 03:18; Status DC Iohexol (Omnipaque 350 Mg/ml) 90 ml 1X ONCE IV Last administered on 07/04/19at 03:25; Start 07/04/19 at 03:30; Stop 07/04/19 at 03:31; Status DC Info (CONTRAST GIVEN -- Rx MONITORING) 1 each PRN DAILY PRN MC SEE COMMENTS; Start 07/04/19 at 03:30; Stop 07/06/19 at 03:29; Status DC Hydromorphone HCl (Dilaudid) 0.5 mg 1X ONCE IV Last administered on 07/04/19at 03:55; Start 07/04/19 at 04:30; Stop 07/04/19 at 04:32; Status DC Ondansetron HCl (Zofran) 4 mg PRN Q8HRS PRN IV NAUSEA/VOMITING 1ST CHOICE; Start 07/04/19 at 05:00; Stop 07/04/19 at 09:27; Status DC Morphine Sulfate (Morphine Sulfate) 2 mg PRN Q2HR PRN IV SEVERE PAIN 7-10 Last administered on 07/05/19at 12:26; Start 07/04/19 at 05:00; Stop 07/05/19 at 14:15; Status DC Sodium Chloride 1,000 ml @ 125 mls/hr Q8H IV Last administered on 07/04/19at 20:56; Start 07/04/19 at 05:00; Stop 07/05/19 at 04:59; Status DC Hydromorphone HCl (Dilaudid) 0.5 mg PRN Q3HRS PRN IV SEVERE PAIN 7-10 Last administered on 07/05/19at 10:06; Start 07/04/19 at 05:00; Stop 07/05/19 at 12:01; Status DC Piperacillin Sod/ Tazobactam Sod 4.5 gm/Sodium Chloride 100 ml @ 200 mls/hr 1X ONCE IV Last administered on 07/04/19at 05:44; Start 07/04/19 at 06:00; Stop 07/04/19 at 06:29; Status DC Ondansetron HCl (Zofran) 4 mg PRN Q4HRS PRN IV NAUSEA/VOMITING 1ST CHOICE Last administered on 10/15/19at 13:37; Start 07/04/19 at 09:30 Insulin Human Lispro (HumaLOG) 0-9 UNITS Q6HRS SQ Last administered on 10/24/19at 06:26; Start 07/04/19 at 09:30 Dextrose (Dextrose 50%-Water Syringe) 12.5 gm PRN Q15MIN PRN IV SEE COMMENTS; Start 07/04/19 at 09:30 Pantoprazole Sodium (PROTONIX VIAL for IV PUSH) 40 mg DAILYAC IVP Last administered on 10/24/19at 08:39; Start 07/04/19 at 11:30 Prochlorperazine Edisylate (Compazine) 10 mg PRN Q6HRS PRN IV NAUSEA/VOMITING, 2nd CHOICE Last administered on 10/15/19at 10:53; Start 07/04/19 at 17:45 Atenolol (Tenormin) 100 mg DAILY PO ; Start 07/05/19 at 09:00; Stop 07/04/19 at 20:08; Status DC Metoprolol Tartrate (Lopressor Vial) 2.5 mg Q6HRS IVP Last administered on 07/05/19at 05:51; Start 07/04/19 at 20:15; Stop 07/05/19 at 10:02; Status DC Metoprolol Tartrate (Lopressor Vial) 5 mg Q6HRS IVP Last administered on 07/14/19at 00:12; Start 07/05/19 at 10:15; Stop 07/16/19 at 08:48; Status DC Hydromorphone HCl (Dilaudid) 1 mg PRN Q3HRS PRN IV SEVERE PAIN 7-10 Last administered on 07/11/19at 05:13; Start 07/05/19 at 12:00; Stop 07/19/19 at 00:25; Status DC Lidocaine HCl (Buffered Lidocaine 1%) 3 ml STK-MED ONCE .ROUTE ; Start 07/05/19 at 12:55; Stop 07/05/19 at 12:56; Status DC Albumin Human 500 ml @ 125 mls/hr 1X ONCE IV Last administered on 07/05/19at 14:33; Start 07/05/19 at 14:30; Stop 07/05/19 at 18:32; Status DC Norepinephrine Bitartrate 8 mg/ Dextrose 258 ml @ 17.299 mls/ hr CONT PRN IV PER PROTOCOL Last administered on 08/02/19at 12:48; Start 07/05/19 at 15:30; Stop 08/05/19 at 09:19; Status DC Sodium Chloride 1,000 ml @ 125 mls/hr Q8H IV Last administered on 07/05/19at 21:04; Start 07/05/19 at 16:00; Stop 07/06/19 at 02:42; Status DC Albumin Human 500 ml @ 125 mls/hr PRN BID PRN IV After every 2L NSS & BP < 90mm Last administered on 10/18/19at 16:06; Start 07/05/19 at 16:00; Stop 10/21/19 at 09:30; Status DC Iohexol (Omnipaque 300 Mg/ml) 60 ml 1X ONCE IV Last administered on 07/05/19at 17:20; Start 07/05/19 at 17:00; Stop 07/05/19 at 17:01; Status DC Info (CONTRAST GIVEN -- Rx MONITORING) 1 each PRN DAILY PRN MC SEE COMMENTS; Start 07/05/19 at 17:00; Stop 07/07/19 at 16:59; Status DC Meropenem 1 gm/ Sodium Chloride 100 ml @ 200 mls/hr Q8HRS IV Last administered on 07/06/19at 05:45; Start 07/05/19 at 20:00; Stop 07/06/19 at 08:48; Status DC Furosemide (Lasix) 40 mg 1X ONCE IVP Last administered on 07/05/19at 22:12; S tart 07/05/19 at 22:30; Stop 07/05/19 at 22:31; Status DC Calcium Chloride 1000 mg/Sodium Chloride 110 ml @ 220 mls/hr 1X ONCE IV Last administered on 07/05/19at 22:11; Start 07/05/19 at 22:30; Stop 07/05/19 at 22:59; Status DC Albuterol Sulfate (Ventolin Neb Soln) 2.5 mg 1X ONCE NEB Last administered on 07/06/19at 00:56; Start 07/05/19 at 22:30; Stop 07/05/19 at 22:31; Status DC Insulin Human Regular (HumuLIN R VIAL) 5 unit 1X ONCE IV Last administered on 07/05/19at 22:14; Start 07/05/19 at 22:30; Stop 07/05/19 at 22:31; Status DC Magnesium Sulfate 50 ml @ 25 mls/hr 1X ONCE IV Last administered on 07/06/19at 02:57; Start 07/06/19 at 03:00; Stop 07/06/19 at 04:59; Status DC Calcium Gluconate 1000 mg/Sodium Chloride 110 ml @ 220 mls/hr 1X ONCE IV Last administered on 07/06/19at 02:46; Start 07/06/19 at 03:00; Stop 07/06/19 at 03:29; Status DC Sodium Chloride 1,000 ml @ 200 mls/hr Q5H IV Last administered on 07/06/19at 02:46; Start 07/06/19 at 03:00; Stop 07/06/19 at 10:21; Status DC Calcium Gluconate 1000 mg/Sodium Chloride 110 ml @ 220 mls/hr 1X ONCE IV Last administered on 07/06/19at 03:21; Start 07/06/19 at 03:30; Stop 07/06/19 at 03:59; Status DC Sodium Bicarbonate 50 meq/Sodium Chloride 1,050 ml @ 75 mls/hr Q14H IV Last administered on 07/10/19at 21:10; Start 07/06/19 at 07:30; Stop 07/11/19 at 10:28; Status DC Calcium Gluconate 2000 mg/Sodium Chloride 120 ml @ 220 mls/hr 1X ONCE IV Last administered on 07/06/19at 09:05; Start 07/06/19 at 07:30; Stop 07/06/19 at 08:02; Status DC Lidocaine HCl (Xylocaine-Mpf 1% 2ml Vial) 2 ml STK-MED ONCE .ROUTE ; Start 07/06/19 at 08:47; Stop 07/06/19 at 08:47; Status DC Meropenem 500 mg/ Sodium Chloride 50 ml @ 100 mls/hr Q12HR IV Last administered on 07/11/19at 21:01; Start 07/06/19 at 18:00; Stop 07/12/19 at 07:58; Status DC Lidocaine HCl (Buffered Lidocaine 1%) 3 ml STK-MED ONCE .ROUTE ; Start 07/06/19 at 09:46; Stop 07/06/19 at 09:46; Status DC Lidocaine HCl (Buffered Lidocaine 1%) 6 ml 1X ONCE INJ Last administered on 07/06/19at 10:26; Start 07/06/19 at 10:15; Stop 07/06/19 at 10:16; Status DC Info (Tpn Per Pharmacy) 1 each PRN DAILY PRN MC SEE COMMENTS Last administered on 10/23/19at 09:19; Start 07/06/19 at 12:00 Sodium Chloride 1,000 ml @ 1,000 mls/hr Q1H PRN IV hypotension; Start 07/06/19 at 12:07; Stop 07/06/19 at 18:06; Status DC Diphenhydramine HCl (Benadryl) 25 mg 1X PRN PRN IV ITCHING; Start 07/06/19 at 12:15; Stop 07/07/19 at 12:14; Status DC Diphenhydramine HCl (Benadryl) 25 mg 1X PRN PRN IV ITCHING; Start 07/06/19 at 12:15; Stop 07/07/19 at 12:14; Status DC Sodium Chloride 1,000 ml @ 400 mls/hr Q2H30M PRN IV PATENCY; Start 07/06/19 at 12:07; Stop 07/07/19 at 00:06; Status DC Info (PHARMACY MONITORING -- do not chart) 1 each PRN DAILY PRN MC SEE COMMENTS; Start 07/06/19 at 12:15; Stop 07/08/19 at 08:13; Status DC Sodium Chloride 90 meq/Calcium Gluconate 10 meq/ Multivitamins 10 ml/Chromium/ Copper/Manganese/ Seleni/Zn 1 ml/ Total Parenteral Nutrition/Amino Acids/Dextrose/ Fat Emulsion Intravenous 55.005 ml @ 2.292 mls/hr TPN CONT IV ; Start 07/06/19 at 22:00; Stop 07/06/19 at 12:33; Status DC Info (Tpn Per Pharmacy) 1 each PRN DAILY PRN MC SEE COMMENTS; Start 07/06/19 at 12:30; Status UNV Sodium Chloride 90 meq/Calcium Gluconate 10 meq/ Multivitamins 10 ml/Chromium/ Copper/Manganese/ Seleni/Zn 0.5 ml/ Total Parenteral Nutrition/Amino Acids/Dextrose/ Fat Emulsion Intravenous 1,512 ml @ 63 mls/hr TPN CONT IV Last administered on 07/06/19at 22:06; Start 07/06/19 at 22:00; Stop 07/07/19 at 21:59; Status DC Calcium Carbonate/ Glycine (Tums) 500 mg PRN AFTMEALHC PRN PO INDIGESTION; Start 07/06/19 at 17:45; Stop 08/31/19 at 10:25; Status DC Calcium Gluconate (Calcium Gluconate) 2,000 mg 1X ONCE IVP Last administered on 07/07/19at 02:19; Start 07/07/19 at 02:15; Stop 07/07/19 at 02:16; Status DC Calcium Chloride 3000 mg/Sodium Chloride 1,030 ml @ 50 mls/hr [id number] IV Last administered on 07/09/19at 02:17; Start 07/07/19 at 08:00; Stop 07/09/19 at 15:23; Status DC Lorazepam (Ativan Inj) 1 mg PRN Q4HRS PRN IVP ANXIETY / AGITATION, 2nd choic Last administered on 08/05/19at 03:51; Start 07/07/19 at 09:00; Stop 08/05/19 at 09:19; Status DC Sodium Chloride 1,000 ml @ 1,000 mls/hr Q1H PRN IV hypotension; Start 07/07/19 at 08:56; Stop 07/07/19 at 14:55; Status DC Albumin Human 200 ml @ 200 mls/hr 1X PRN PRN IV Hypotension; Start 07/07/19 at 09:00; Stop 07/07/19 at 14:59; Status DC Diphenhydramine HCl (Benadryl) 25 mg 1X PRN PRN IV ITCHING; Start 07/07/19 at 09:00; Stop 07/08/19 at 08:59; Status DC Diphenhydramine HCl (Benadryl) 25 mg 1X PRN PRN IV ITCHING; Start 07/07/19 at 09:00; Stop 07/08/19 at 08:59; Status DC Sodium Chloride 1,000 ml @ 400 mls/hr Q2H30M PRN IV PATENCY; Start 07/07/19 at 08:56; Stop 07/07/19 at 20:55; Status DC Info (PHARMACY MONITORING -- do not chart) 1 each PRN DAILY PRN MC SEE COMMENTS; Start 07/07/19 at 09:00; Status UNV Info (PHARMACY MONITORING -- do not chart) 1 each PRN DAILY PRN MC SEE COMMENTS; Start 07/07/19 at 09:00; Stop 07/08/19 at 08:13; Status DC Digoxin (Lanoxin) 500 mcg 1X ONCE IV Last administered on 07/07/19at 10:04; Start 07/07/19 at 10:00; Stop 07/07/19 at 10:01; Status DC Digoxin (Lanoxin) 125 mcg 1X ONCE IV Last administered on 07/07/19at 17:10; Start 07/07/19 at 18:00; Stop 07/07/19 at 18:01; Status DC Magnesium Sulfate 100 ml @ 25 mls/hr 1X ONCE IV Last administered on 07/07/19at 12:48; Start 07/07/19 at 13:00; Stop 07/07/19 at 16:59; Status DC Sodium Chloride 90 meq/Magnesium Sulfate 10 meq/ Calcium Gluconate 20 meq/ Multivitamins 10 ml/Chromium/ Copper/Manganese/ Seleni/Zn 0.5 ml/ Total Parenteral Nutrition/Amino Acids/Dextrose/ Fat Emulsion Intravenous 1,512 ml @ 63 mls/hr TPN CONT IV Last administered on 07/07/19at 22:25; Start 07/07/19 at 22:00; Stop 07/08/19 at 21:59; Status DC Sodium Chloride 1,000 ml @ 1,000 mls/hr Q1H PRN IV hypotension; Start 07/08/19 at 08:05; Stop 07/08/19 at 14:04; Status DC Albumin Human 200 ml @ 200 mls/hr 1X ONCE IV Last administered on 07/08/19at 08:57; Start 07/08/19 at 08:15; Stop 07/08/19 at 09:14; Status DC Diphenhydramine HCl (Benadryl) 25 mg 1X PRN PRN IV ITCHING; Start 07/08/19 at 08:15; Stop 07/09/19 at 08:14; Status DC Diphenhydramine HCl (Benadryl) 25 mg 1X PRN PRN IV ITCHING; Start 07/08/19 at 08:15; Stop 07/09/19 at 08:14; Status DC Sodium Chloride 1,000 ml @ 400 mls/hr Q2H30M PRN IV PATENCY; Start 07/08/19 at 08:05; Stop 07/08/19 at 20:04; Status DC Info (PHARMACY MONITORING -- do not chart) 1 each PRN DAILY PRN MC SEE COMMENTS; Start 07/08/19 at 08:15; Stop 07/12/19 at 07:57; Status DC Sodium Chloride 90 meq/Potassium Chloride 15 meq/ Potassium Phosphate 10 mmol/ Magnesium Sulfate 10 meq/Calcium Gluconate 20 meq/ Multivitamins 10 ml/Chromium/ Copper/Manganese/ Seleni/Zn 0.5 ml/ Total Parenteral Nutrition/Amino Acids/Dextrose/ Fat Emulsion Intravenous 1,512 ml @ 63 mls/hr TPN CONT IV Last administered on 07/08/19at 21:01; Start 07/08/19 at 22:00; Stop 07/09/19 at 21:59; Status DC Potassium Chloride/Water 100 ml @ 100 mls/hr 1X ONCE IV Last administered on 07/08/19at 14:09; Start 07/08/19 at 14:00; Stop 07/08/19 at 14:59; Status DC Benzocaine (Hurricaine One) 1 spray 1X ONCE MM Last administered on 07/08/19at 16:38; Start 07/08/19 at 14:30; Stop 07/08/19 at 14:31; Status DC Lidocaine HCl (Glydo (Lidocaine) Jelly) 1 ramu 1X ONCE MM Last administered on 07/08/19at 16:38; Start 07/08/19 at 14:30; Stop 07/08/19 at 14:31; Status DC Linezolid/Dextrose 300 ml @ 300 mls/hr Q12HR IV Last administered on 07/14/19at 21:04; Start 07/08/19 at 20:00; Stop 07/15/19 at 07:50; Status DC Acetaminophen (Tylenol) 650 mg PRN Q6HRS PRN PO MILD PAIN / TEMP; Start 07/09/19 at 03:30; Stop 07/09/19 at 03:36; Status DC Acetaminophen (Tylenol) 650 mg PRN Q6HRS PRN PEG MILD PAIN / TEMP Last administered on 08/04/19at 19:56; Start 07/09/19 at 03:36; Stop 08/31/19 at 10:25; Status DC Sodium Chloride 1,000 ml @ 1,000 mls/hr Q1H PRN IV hypotension; Start 07/09/19 at 07:50; Stop 07/09/19 at 13:49; Status DC Albumin Human 200 ml @ 200 mls/hr 1X PRN PRN IV Hypotension; Start 07/09/19 at 08:00; Stop 07/09/19 at 13:59; Status DC Sodium Chloride (Normal Saline Flush) 10 ml 1X PRN PRN IV AP catheter pack; Start 07/09/19 at 08:00; Stop 07/10/19 at 07:59; Status DC Sodium Chloride (Normal Saline Flush) 10 ml 1X PRN PRN IV TANK CHARGER catheter pack; Start 07/09/19 at 08:00; Stop 07/10/19 at 07:59; Status DC Sodium Chloride 1,000 ml @ 400 mls/hr Q2H30M PRN IV PATENCY; Start 07/09/19 at 07:50; Stop 07/09/19 at 19:49; Status DC Info (PHARMACY MONITORING -- do not chart) 1 each PRN DAILY PRN MC SEE COMMENTS; Start 07/09/19 at 08:00; Status UNV Info (PHARMACY MONITORING -- do not chart) 1 each PRN DAILY PRN MC SEE COMMENTS; Start 07/09/19 at 08:00; Stop 07/11/19 at 08:25; Status DC Sodium Chloride 90 meq/Potassium Chloride 15 meq/ Potassium Phosphate 10 mmol/ Magnesium Sulfate 10 meq/Calcium Gluconate 20 meq/ Multivitamins 10 ml/Chromium/ Copper/Manganese/ Seleni/Zn 0.5 ml/ Total Parenteral Nutrition/Amino Acids/Dextrose/ Fat Emulsion Intravenous 1,512 ml @ 63 mls/hr TPN CONT IV Last administered on 07/09/19at 20:57; Start 07/09/19 at 22:00; Stop 07/10/19 at 21:59; Status DC Sodium Chloride 90 meq/Potassium Chloride 15 meq/ Potassium Phosphate 15 mmol/ Magnesium Sulfate 10 meq/Calcium Gluconate 20 meq/ Multivitamins 10 ml/Chromium/ Copper/Manganese/ Seleni/Zn 0.5 ml/ Total Parenteral Nutrition/Amino Acids/Dextrose/ Fat Emulsion Intravenous 1,512 ml @ 63 mls/hr TPN CONT IV ; Start 07/10/19 at 22:00; Stop 07/10/19 at 14:16; Status DC Sodium Chloride 90 meq/Potassium Chloride 15 meq/ Potassium Phosphate 15 mmol/ Magnesium Sulfate 10 meq/Calcium Gluconate 20 meq/ Multivitamins 10 ml/Chromium/ Copper/Manganese/ Seleni/Zn 0.5 ml/ Total Parenteral Nutrition/Amino Acids/Dextrose/ Fat Emulsion Intravenous 1,200 ml @ 50 mls/hr TPN CONT IV ; Start 07/10/19 at 22:00; Stop 07/10/19 at 14:17; Status DC Sodium Chloride 90 meq/Potassium Chloride 15 meq/ Potassium Phosphate 10 mmol/ Magnesium Sulfate 10 meq/Calcium Gluconate 20 meq/ Multivitamins 10 ml/Chromium/ Copper/Manganese/ Seleni/Zn 0.5 ml/ Total Parenteral Nutrition/Amino Acids/Dextrose/ Fat Emulsion Intravenous 1,200 ml @ 50 mls/hr TPN CONT IV Last administered on 07/10/19at 23:29; Start 07/10/19 at 22:00; Stop 07/11/19 at 21:59; Status DC Sodium Chloride 1,000 ml @ 1,000 mls/hr Q1H PRN IV hypotension; Start 07/11/19 at 07:28; Stop 07/11/19 at 13:27; Status DC Albumin Human 200 ml @ 200 mls/hr 1X ONCE IV Last administered on 07/11/19at 08:51; Start 07/11/19 at 07:30; Stop 07/11/19 at 08:29; Status DC Diphenhydramine HCl (Benadryl) 25 mg 1X PRN PRN IV ITCHING; Start 07/11/19 at 07:30; Stop 07/12/19 at 07:29; Status DC Diphenhydramine HCl (Benadryl) 25 mg 1X PRN PRN IV ITCHING; Start 07/11/19 at 07:30; Stop 07/12/19 at 07:29; Status DC Sodium Chloride 1,000 ml @ 400 mls/hr Q2H30M PRN IV PATENCY; Start 07/11/19 at 07:28; Stop 07/11/19 at 19:27; Status DC Info (PHARMACY MONITORING -- do not chart) 1 each PRN DAILY PRN MC SEE COMMENTS; Start 07/11/19 at 07:30; Stop 07/22/19 at 13:01; Status DC Metronidazole 100 ml @ 100 mls/hr Q6HRS IV Last administered on 07/27/19at 06:26; Start 07/11/19 at 08:30; Stop 07/27/19 at 09:58; Status DC Micafungin Sodium 100 mg/Dextrose 100 ml @ 100 mls/hr Q24H IV Last administered on 08/18/19at 08:18; Start 07/11/19 at 09:00; Stop 08/18/19 at 20:58; Status DC Propofol 0 ml @ As Directed STK-MED ONCE IV ; Start 07/11/19 at 07:53; Stop 07/11/19 at 07:53; Status DC Etomidate (Amidate) 20 mg STK-MED ONCE IV ; Start 07/11/19 at 07:53; Stop 07/10 at 07:54; Status DC Midazolam HCl (Versed) 5 mg STK-MED ONCE .ROUTE ; Start 07/11/19 at 07:57; Stop 07/11/19 at 07:57; Status DC Fentanyl Citrate 30 ml @ 0 mls/hr CONT PRN IV SEE PROTOCOL Last administered on 08/05/19at 06:12; Start 07/11/19 at 08:15; Stop 08/05/19 at 09:19; Status DC Artificial Tears (Artificial Tears) 1 drop PRN Q1HR PRN OU DRY EYE, 1st choice; Start 07/11/19 at 08:15; Stop 08/17/19 at 05:31; Status DC Midazolam HCl 50 mg/Sodium Chloride 50 ml @ 0 mls/hr CONT PRN IV SEE PROTOCOL Last administered on 07/14/19at 22:39; Start 07/11/19 at 08:15; Stop 07/16/19 at 15:59; Status DC Etomidate (Amidate) 8 mg 1X ONCE IV Last administered on 07/11/19at 08:33; Start 07/11/19 at 08:30; Stop 07/11/19 at 08:31; Status DC Succinylcholine Chloride (Anectine) 120 mg 1X ONCE IV Last administered on 07/11/19at 08:34; Start 07/11/19 at 08:30; Stop 07/11/19 at 08:31; Status DC Midazolam HCl (Versed) 5 mg 1X ONCE IV ; Start 07/11/19 at 08:30; Stop 07/11/19 at 08:31; Status DC Potassium Chloride 15 meq/ Bicarbonate Dialysis Soln w/ out KCl 5,007.5 ml @ 1,000 mls/ hr Q5H1M IV Last administered on 07/12/19at 11:11; Start 07/11/19 at 12:00; Stop 07/12/19 at 11:15; Status DC Potassium Chloride 15 meq/ Bicarbonate Dialysis Soln w/ out KCl 5,007.5 ml @ 1,000 mls/ hr Q5H1M IV Last administered on 07/12/19at 11:12; Start 07/11/19 at 12:00; Stop 07/12/19 at 11:17; Status DC Potassium Chloride 15 meq/ Bicarbonate Dialysis Soln w/ out KCl 5,007.5 ml @ 1,000 mls/ hr Q5H1M IV Last administered on 07/12/19at 11:11; Start 07/11/19 at 12:00; Stop 07/12/19 at 11:19; Status DC Sodium Chloride 90 meq/Potassium Chloride 15 meq/ Potassium Phosphate 10 mmol/ Magnesium Sulfate 10 meq/Calcium Gluconate 20 meq/ Multivitamins 10 ml/Chromium/ Copper/Manganese/ Seleni/Zn 0.5 ml/ Total Parenteral Nutrition/Amino Acids/Dextrose/ Fat Emulsion Intravenous 1,400 ml @ 58.333 mls/ hr TPN CONT IV Last administered on 07/11/19at 21:42; Start 07/11/19 at 22:00; Stop 07/12/19 at 21:59; Status DC Heparin Sodium (Porcine) (Heparin Sodium) 5,000 unit Q8HRS SQ Last administered on 07/16/19at 05:55; Start 07/11/19 at 15:00; Stop 07/16/19 at 13:28; Status DC Meropenem 500 mg/ Sodium Chloride 50 ml @ 100 mls/hr Q6HRS IV Last administered on 07/13/19at 06:00; Start 07/12/19 at 09:00; Stop 07/13/19 at 07:29; Status DC Potassium Phosphate 20 mmol/ Sodium Chloride 106.6667 ml @ 51.667 m... 1X ONCE IV Last administered on 07/12/19at 11:22; Start 07/12/19 at 10:15; Stop 07/12/19 at 12:18; Status DC Acetaminophen (Tylenol Supp) 650 mg PRN Q6HRS PRN WI MILD PAIN / TEMP > 100.3'F Last administered on 10/17/19at 18:16; Start 07/12/19 at 10:30 Potassium Chloride/Water 100 ml @ 100 mls/hr Q1H IV Last administered on 07/12/19at 12:12; Start 07/12/19 at 11:00; Stop 07/12/19 at 12:59; Status DC Potassium Chloride 20 meq/ Bicarbonate Dialysis Soln w/ out KCl 5,010 ml @ 1,000 mls/hr Q5H1M IV Last administered on 07/13/19at 08:48; Start 07/12/19 at 12:00; Stop 07/13/19 at 13:03; Status DC Potassium Chloride 20 meq/ Bicarbonate Dialysis Soln w/ out KCl 5,010 ml @ 1,000 mls/hr Q5H1M IV Last administered on 07/17/19at 14:52; Start 07/12/19 at 11:30; Stop 07/17/19 at 19:59; Status DC Potassium Chloride 20 meq/ Bicarbonate Dialysis Soln w/ out KCl 5,010 ml @ 1,000 mls/hr Q5H1M IV Last administered on 07/17/19at 14:53; Start 07/12/19 at 11:30; Stop 07/17/19 at 19:59; Status DC Sodium Chloride 90 meq/Potassium Chloride 15 meq/ Potassium Phosphate 15 mmol/ Magnesium Sulfate 10 meq/Calcium Gluconate 15 meq/ Multivitamins 10 ml/Chromium/ Copper/Manganese/ Seleni/Zn 0.5 ml/ Total Parenteral Nutrition/Amino Acids/Dextrose/ Fat Emulsion Intravenous 1,400 ml @ 58.333 mls/ hr TPN CONT IV Last administered on 07/12/19at 22:17; Start 07/12/19 at 22:00; Stop 07/13/19 at 21:59; Status DC Cefepime HCl (Maxipime) 2 gm Q12HR IVP Last administered on 07/26/19at 20:56; Start 07/13/19 at 09:00; Stop 07/27/19 at 09:58; Status DC Daptomycin 500 mg/ Sodium Chloride 50 ml @ 100 mls/hr Q48H IV Last administered on 07/29/19at 09:57; Start 07/13/19 at 08:30; Stop 07/29/19 at 10: 07; Status DC Lidocaine HCl (Buffered Lidocaine 1%) 3 ml 1X ONCE INJ Last administered on 07/13/19at 10:27; Start 07/13/19 at 10:30; Stop 07/13/19 at 10:31; Status DC Potassium Phosphate 20 mmol/ Sodium Chloride 106.6667 ml @ 51.667 m... 1X ONCE IV Last administered on 07/13/19at 12:51; Start 07/13/19 at 13:00; Stop 07/13/19 at 15:03; Status DC Sodium Chloride 90 meq/Potassium Chloride 15 meq/ Potassium Phosphate 18 mmol/ Magnesium Sulfate 8 meq/Calcium Gluconate 15 meq/ Multivitamins 10 ml/Chromium/ Copper/Manganese/ Seleni/Zn 0.5 ml/ Total Parenteral Nutrition/Amino Acids/Dextrose/ Fat Emulsion Intravenous 1,400 ml @ 58.333 mls/ hr TPN CONT IV Last administered on 07/13/19at 22:16; Start 07/13/19 at 22:00; Stop 07/14/19 at 21:59; Status DC Potassium Chloride 20 meq/ Bicarbonate Dialysis Soln w/ out KCl 5,010 ml @ 1,000 mls/hr Q5H1M IV Last administered on 07/17/19at 14:54; Start 07/13/19 at 16:00; Stop 07/17/19 at 19:59; Status DC Multi-Ingred Cream/Lotion/Oil/ Oint (Artificial Tears Eye Ointment) 1 ramu PRN Q1HR PRN OU DRY EYE, 2nd choice Last administered on 08/01/19at 08:19; Start 07/13/19 at 17:30; Stop 09/21/19 at 14:39; Status DC Sodium Chloride 90 meq/Potassium Chloride 15 meq/ Potassium Phosphate 18 mmol/ Magnesium Sulfate 8 meq/Calcium Gluconate 15 meq/ Multivitamins 10 ml/Chromium/ Copper/Manganese/ Seleni/Zn 0.5 ml/ Total Parenteral Nutrition/Amino Acids/Dextrose/ Fat Emulsion Intravenous 1,400 ml @ 58.333 mls/ hr TPN CONT IV Last administered on 07/14/19at 22:00; Start 07/14/19 at 22:00; Stop 07/15/19 at 21:59; Status DC Albumin Human 500 ml @ 125 mls/hr 1X ONCE IV ; Start 07/14/19 at 14:15; Stop 07/14/19 at 18:14; Status DC Sodium Chloride 90 meq/Potassium Chloride 15 meq/ Potassium Phosphate 18 mmol/ Magnesium Sulfate 8 meq/Calcium Gluconate 15 meq/ Multivitamins 10 ml/Chromium/ Copper/Manganese/ Seleni/Zn 0.5 ml/ Insulin Human Regular 10 unit/ Total Paren teral Nutrition/Amino Acids/Dextrose/ Fat Emulsion Intravenous 1,400 ml @ 58.333 mls/ hr TPN CONT IV Last administered on 07/15/19at 21:43; Start 07/15/19 at 22:00; Stop 07/16/19 at 21:59; Status DC Lidocaine HCl (Buffered Lidocaine 1%) 3 ml STK-MED ONCE .ROUTE ; Start 07/13/19 at 10:00; Stop 07/15/19 at 13:57; Status DC Midazolam HCl 100 mg/Sodium Chloride 100 ml @ 7 mls/hr CONT PRN IV SEE PROTOCOL Last administered on 07/27/19at 15:35; Start 07/16/19 at 16:00; Stop 09/21/19 at 14:38; Status DC Sodium Chloride 90 meq/Potassium Chloride 15 meq/ Potassium Phosphate 18 mmol/ Magnesium Sulfate 8 meq/Calcium Gluconate 15 meq/ Multivitamins 10 ml/Chromium/ Copper/Manganese/ Seleni/Zn 0.5 ml/ Insulin Human Regular 15 unit/ Total Parenteral Nutrition/Amino Acids/Dextrose/ Fat Emulsion Intravenous 1,400 ml @ 58.333 mls/ hr TPN CONT IV Last administered on 07/16/19at 20:34; Start 0 at 22:00; Stop 07/17/19 at 21:59; Status DC Info (Icu Electrolyte Protocol) 1 ea CONT PRN PRN MC PER PROTOCOL; Start 07/17/19 at 13:15 Sodium Chloride 90 meq/Potassium Chloride 15 meq/ Potassium Phosphate 18 mmol/ Magnesium Sulfate 8 meq/Calcium Gluconate 15 meq/ Multivitamins 10 ml/Chromium/ Copper/Manganese/ Seleni/Zn 0.5 ml/ Insulin Human Regular 15 unit/ Total Parenteral Nutrition/Amino Acids/Dextrose/ Fat Emulsion Intravenous 1,400 ml @ 58.333 mls/ hr TPN CONT IV Last administered on 07/17/19at 22:05; Start 07/17/19 at 22:00; Stop 07/18/19 at 21:59; Status DC Potassium Chloride 15 meq/ Bicarbonate Dialysis Soln w/ out KCl 5,007.5 ml @ 1,000 mls/ hr Q5H1M IV Last administered on 07/20/19at 18:14; Start 07/17/19 at 20:00; Stop 07/21/19 at 13:08; Status DC Potassium Chloride 15 meq/ Bicarbonate Dialysis Soln w/ out KCl 5,007.5 ml @ 1,000 mls/ hr Q5H1M IV Last administered on 07/20/19at 18:14; Start 07/17/19 at 20:00; Stop 07/21/19 at 13:08; Status DC Potassium Chloride 15 meq/ Bicarbonate Dialysis Soln w/ out KCl 5,007.5 ml @ 1,000 mls/ hr Q5H1M IV Last administered on 07/20/19at 18:14; Start 07/17/19 at 20:00; Stop 07/21/19 at 13:08; Status DC Iohexol (Omnipaque 240 Mg/ml) 30 ml 1X ONCE PO Last administered on 07/18/19at 11:30; Start 07/18/19 at 11:30; Stop 07/18/19 at 11:33; Status DC Info (CONTRAST GIVEN -- Rx MONITORING) 1 each PRN DAILY PRN MC SEE COMMENTS; Start 07/18/19 at 11:45; Stop 07/20/19 at 11:44; Status DC Sodium Chloride 90 meq/Potassium Chloride 15 meq/ Potassium Phosphate 18 mmol/ M agnesium Sulfate 8 meq/Calcium Gluconate 15 meq/ Multivitamins 10 ml/Chromium/ Copper/Manganese/ Seleni/Zn 0.5 ml/ Insulin Human Regular 15 unit/ Total Parenteral Nutrition/Amino Acids/Dextrose/ Fat Emulsion Intravenous 1,400 ml @ 58.333 mls/ hr TPN CONT IV Last administered on 07/18/19at 21:47; Start 07/18/19 at 22:00; Stop 07/19/19 at 21:59; Status DC Sodium Chloride 90 meq/Potassium Chloride 15 meq/ Potassium Phosphate 18 mmol/ Magnesium Sulfate 8 meq/Calcium Gluconate 15 meq/ Multivitamins 10 ml/Chromium/ Copper/Manganese/ Seleni/Zn 0.5 ml/ Insulin Human Regular 20 unit/ Total Parenteral Nutrition/Amino Acids/Dextrose/ Fat Emulsion Intravenous 1,400 ml @ 58.333 mls/ hr TPN CONT IV Last administered on 07/19/19at 21:36; Start 07/19/19 at 22:00; Stop 07/20/19 at 21:59; Status DC Alteplase, Recombinant (Cathflo For Central Catheter Clearance) 1 mg 1X ONCE INT CAT Last administered on 07/19/19at 20:03; Start 07/19/19 at 19:30; Stop 07/19/19 at 19:46; Status DC Alteplase, Recombinant (Cathflo For Central Catheter Clearance) 1 mg 1X ONCE INT CAT Last administered on 07/19/19at 22:05; Start 07/19/19 at 22:00; Stop 07/19/19 at 22:01; Status DC Sodium Chloride 90 meq/Potassium Chloride 15 meq/ Potassium Phosphate 18 mmol/ Magnesium Sulfate 8 meq/Calcium Gluconate 15 meq/ Multivitamins 10 ml/Chromium/ Copper/Manganese/ Seleni/Zn 0.5 ml/ Insulin Human Regular 20 unit/ Total Parenteral Nutrition/Amino Acids/Dextrose/ Fat Emulsion Intravenous 1,400 ml @ 58.333 mls/ hr TPN CONT IV Last administered on 07/20/19at 21:30; Start 07/20/19 at 22:00; Stop 07/21/19 at 21:59; Status DC Dexmedetomidine HCl 400 mcg/ Sodium Chloride 100 ml @ 0 mls/hr CONT PRN IV ANXIETY / AGITATION Last administered on 09/17/19at 12:57; Start 07/21/19 at 08:15; Stop 09/17/19 at 18:31; Status DC Sodium Chloride 500 ml @ 500 mls/hr 1X PRN PRN IV ELEVATED BP, SEE COMMENTS; Start 07/21/19 at 08:15 Atropine Sulfate (ATROPINE 0.5mg SYRINGE) 0.5 mg PRN Q5MIN PRN IV SEE COMMENTS; Start 07/21/19 at 08:15 Furosemide (Lasix) 20 mg 1X ONCE IVP Last administered on 07/21/19at 08:19; Start 07/21/19 at 08:15; Stop 07/21/19 at 08:16; Status DC Lidocaine HCl (Buffered Lidocaine 1%) 3 ml STK-MED ONCE .ROUTE ; Start 07/21/19 at 08:39; Stop 07/21/19 at 08:39; Status DC Lidocaine HCl (Buffered Lidocaine 1%) 6 ml 1X ONCE INJ Last administered on 07/21/19at 09:05; Start 07/21/19 at 09:00; Stop 07/21/19 at 09:06; Status DC Sodium Chloride 90 meq/Potassium Chloride 15 meq/ Potassium Phosphate 18 mmol/ Magnesium Sulfate 8 meq/Calcium Gluconate 15 meq/ Multivitamins 10 ml/Chromium/ Copper/Manganese/ Seleni/Zn 0.5 ml/ Insulin Human Regular 20 unit/ Total Parenteral Nutrition/Amino Acids/Dextrose/ Fat Emulsion Intravenous 1,400 ml @ 58.333 mls/ hr TPN CONT IV Last administered on 07/21/19at 22:45; Start 07/21/19 at 22:00; Stop 07/22/19 at 21:59; Status DC Sodium Chloride 1,000 ml @ 1,000 mls/hr Q1H PRN IV hypotension; Start 07/22/19 at 07:30; Stop 07/22/19 at 13:29; Status DC Albumin Human 200 ml @ 200 mls/hr 1X PRN PRN IV Hypotension Last administered on 07/22/19at 09:36; Start 07/22/19 at 07:30; Stop 07/22/19 at 13:29; Status DC Sodium Chloride (Normal Saline Flush) 10 ml 1X PRN PRN IV AP catheter pack; Start 07/22/19 at 07:30; Stop 07/22/19 at 21:29; Status DC Sodium Chloride (Normal Saline Flush) 10 ml 1X PRN PRN IV TANK CHARGER catheter pack; Start 07/22/19 at 07:30; Stop 07/23/19 at 07:29; Status DC Sodium Chloride 1,000 ml @ 400 mls/hr Q2H30M PRN IV PATENCY; Start 07/22/19 at 07:30; Stop 07/22/19 at 19:29; Status DC Info (PHARMACY MONITORING -- do not chart) 1 each PRN DAILY PRN MC SEE COMMENTS; Start 07/22/19 at 07:30; Stop 07/22/19 at 13:02; Status DC Info (PHARMACY MONITORING -- do not chart) 1 each PRN DAILY PRN MC SEE COMMENTS; Start 07/22/19 at 07:30; Stop 07/24/19 at 12:45; Status DC Sodium Chloride 90 meq/Potassium Chloride 15 meq/ Potassium Phosphate 10 mmol/ Magnesium Sulfate 8 meq/Calcium Gluconate 15 meq/ Multivitamins 10 ml/Chromium/ Copper/Manganese/ Seleni/Zn 0.5 ml/ Insulin Human Regular 25 unit/ Total Parenteral Nutrition/Amino Acids/Dextrose/ Fat Emulsion Intravenous 1,400 ml @ 58.333 mls/ hr TPN CONT IV Last administered on 07/22/19at 22:19; Start 07/22/19 at 22:00; Stop 07/23/19 at 21:59; Status DC Heparin Sodium (Porcine) (Heparin Sodium) 5,000 unit Q12HR SQ Last administered on 08/14/19at 08:59; Start 07/22/19 at 21:00; Stop 08/14/19 at 10:05; Status DC Ondansetron HCl (Zofran) 4 mg PRN Q6HRS PRN IV NAUSEA/VOMITING; Start 07/25/19 at 07:00; Stop 07/26/19 at 06:59; Status DC Fentanyl Citrate (Fentanyl 2ml Vial) 25 mcg PRN Q5MIN PRN IV MILD PAIN 1-3; Start 07/25/19 at 07:00; Stop 07/26/19 at 06:59; Status DC Fentanyl Citrate (Fentanyl 2ml Vial) 50 mcg PRN Q5MIN PRN IV MODERATE TO SEVERE PAIN; Start 07/25/19 at 07:00; Stop 07/26/19 at 06:59; Status DC Ringer's Solution 1,000 ml @ 30 mls/hr Q24H IV ; Start 07/25/19 at 07:00; Stop 07/25/19 at 18:59; Status DC Lidocaine HCl (Xylocaine-Mpf 1% 2ml Vial) 2 ml PRN 1X PRN ID PRIOR TO IV START; Start 07/25/19 at 07:00; Stop 07/26/19 at 06:59; Status DC Prochlorperazine Edisylate (Compazine) 5 mg PACU PRN PRN IV NAUSEA, MRX1; S tart 07/25/19 at 07:00; Stop 07/26/19 at 06:59; Status DC Sodium Chloride 1,000 ml @ 1,000 mls/hr Q1H PRN IV hypotension; Start 07/23/19 at 09:10; Stop 07/23/19 at 15:09; Status DC Albumin Human 200 ml @ 200 mls/hr 1X PRN PRN IV Hypotension Last administered on 07/23/19at 10:10; Start 07/23/19 at 09:15; Stop 07/23/19 at 15:14; Status DC Sodium Chloride 1,000 ml @ 400 mls/hr Q2H30M PRN IV PATENCY; Start 07/23/19 at 09:10; Stop 07/23/19 at 21:09; Status DC Info (PHARMACY MONITORING -- do not chart) 1 each PRN DAILY PRN MC SEE COMMENTS; Start 07/23/19 at 09:15; Stop 07/24/19 at 12:45; Status DC Info (PHARMACY MONITORING -- do not chart) 1 each PRN DAILY PRN MC SEE COMMENTS; Start 07/23/19 at 09:15; Stop 07/24/19 at 12:45; Status DC Sodium Chloride 90 meq/Potassium Chloride 15 meq/ Potassium Phosphate 10 mmol/ Magnesium Sulfate 8 meq/Calcium Gluconate 15 meq/ Multivitamins 10 ml/Chromium/ Copper/Manganese/ Seleni/Zn 0.5 ml/ Insulin Human Regular 25 unit/ Total Parenteral Nutrition/Amino Acids/Dextrose/ Fat Emulsion Intravenous 1,400 ml @ 58.333 mls/ hr TPN CONT IV Last administered on 07/23/19at 22:10; Start 07/23/19 at 22:00; Stop 07/24/19 at 21:59; Status DC Magnesium Sulfate 50 ml @ 25 mls/hr PRN DAILY PRN IV for Mag < 1.7 on am labs Last administered on 10/06/19at 10:57; Start 07/24/19 at 09:15 Sodium Chloride 90 meq/Potassium Chloride 15 meq/ Potassium Phosphate 10 mmol/ Magnesium Sulfate 8 meq/Calcium Gluconate 15 meq/ Multivitamins 10 ml/Chromium/ Copper/Manganese/ Seleni/Zn 0.5 ml/ Insulin Human Regular 25 unit/ Total Parenteral Nutrition/Amino Acids/Dextrose/ Fat Emulsion Intravenous 1,400 ml @ 58.333 mls/ hr TPN CONT IV Last administered on 07/24/19at 21:20; Start 07/24/19 at 22:00; Stop 07/25/19 at 21:59; Status DC Sodium Chloride 1,000 ml @ 1,000 mls/hr Q1H PRN IV hypotension; Start 07/24/19 at 12:23; Stop 07/24/19 at 18:22; Status DC Albumin Human 200 ml @ 200 mls/hr 1X ONCE IV Last administered on 07/24/19at 13:34; Start 07/24/19 at 12:30; Stop 07/24/19 at 13:29; Status DC Diphenhydramine HCl (Benadryl) 25 mg 1X PRN PRN IV ITCHING; Start 07/24/19 at 12:30; Stop 07/25/19 at 12:29; Status DC Diphenhydramine HCl (Benadryl) 25 mg 1X PRN PRN IV ITCHING; Start 07/24/19 at 12:30; Stop 07/25/19 at 12:29; Status DC Info (PHARMACY MONITORING -- do not chart) 1 each PRN DAILY PRN MC SEE COMMENTS; Start 07/24/19 at 12:30; Status Cancel Bupivacaine HCl/ Epinephrine Bitart (Sensorcain-Epi 0.5%-1:011740 Mpf) 30 ml STK-MED ONCE .ROUTE Last administered on 07/25/19at 11:44; Start 07/25/19 at 11:00; Stop 07/25/19 at 11:01; Status DC Cellulose (Surgicel Fibrillar 1x2) 1 each STK-MED ONCE .ROUTE ; Start 07/25/19 at 11:00; Stop 07/25/19 at 11:01; Status DC Sodium Chloride 90 meq/Potassium Chloride 15 meq/ Potassium Phosphate 10 mmol/ Magnesium Sulfate 12 meq/Calcium Gluconate 15 meq/ Multivitamins 10 ml/Chromium/ Copper/Manganese/ Seleni/Zn 0.5 ml/ Insulin Human Regular 25 unit/ Total Parenteral Nutrition/Amino Acids/Dextrose/ Fat Emulsion Intravenous 1,400 ml @ 58.333 mls/ hr TPN CONT IV Last administered on 07/25/19at 22:24; Start 07/25/19 at 22:00; Stop 07/26/19 at 21:59; Status DC Propofol 20 ml @ As Directed STK-MED ONCE IV ; Start 07/25/19 at 11:07; Stop 07/25/19 at 11:07; Status DC Cellulose (Surgicel Hemostat 4x8) 1 each STK-MED ONCE .ROUTE Last administered on 07/25/19at 11:44; Start 07/25/19 at 11:55; Stop 07/25/19 at 11:56; Status DC Sevoflurane (Ultane) 60 ml STK-MED ONCE IH ; Start 07/25/19 at 12:46; Stop 07/25/19 at 12:46; Status DC Sodium Chloride 1,000 ml @ 1,000 mls/hr Q1H PRN IV hypotension; Start 07/25/19 at 13:51; Stop 07/25/19 at 19:50; Status DC Albumin Human 200 ml @ 200 mls/hr 1X PRN PRN IV Hypotension Last administered on 07/25/19at 14:51; Start 07/25/19 at 14:00; Stop 07/25/19 at 19:59; Status DC Diphenhydramine HCl (Benadryl) 25 mg 1X PRN PRN IV ITCHING; Start 07/25/19 at 14:00; Stop 07/26/19 at 13:59; Status DC Diphenhydramine HCl (Benadryl) 25 mg 1X PRN PRN IV ITCHING; Start 07/25/19 at 1 4:00; Stop 07/26/19 at 13:59; Status DC Sodium Chloride 1,000 ml @ 400 mls/hr Q2H30M PRN IV PATENCY; Start 07/25/19 at 13:51; Stop 07/26/19 at 01:50; Status DC Info (PHARMACY MONITORING -- do not chart) 1 each PRN DAILY PRN MC SEE COMMENTS; Start 07/25/19 at 14:00; Stop 07/28/19 at 08:16; Status DC Heparin Sodium (Porcine) (Hep Lock Adult) 500 unit STK-MED ONCE IVP ; Start 07/26/19 at 09:29; Stop 07/26/19 at 09:30; Status DC Sodium Chloride 1,000 ml @ 1,000 mls/hr Q1H PRN IV hypotension; Start 07/26/19 at 10:43; Stop 07/26/19 at 16:42; Status DC Sodium Chloride 1,000 ml @ 400 mls/hr Q2H30M PRN IV PATENCY; Start 07/26/19 at 10:43; Stop 07/26/19 at 22:42; Status DC Info (PHARMACY MONITORING -- do not chart) 1 each PRN DAILY PRN MC SEE COMMENTS; Start 07/26/19 at 10:45; Status UNV Info (PHARMACY MONITORING -- do not chart) 1 each PRN DAILY PRN MC SEE COMMENTS; Start 07/26/19 at 10:45; Status UNV Sodium Chloride 90 meq/Potassium Chloride 15 meq/ Magnesium Sulfate 12 meq/Calcium Gluconate 15 meq/ Multivitamins 10 ml/Chromium/ Copper/Manganese/ Seleni/Zn 0.5 ml/ Insulin Human Regular 25 unit/ Total Parenteral Nutrition/Amino Acids/Dextrose/ Fat Emulsion Intravenous 1,400 ml @ 58.333 mls/ hr TPN CONT IV Last administered on 07/26/19at 22:13; Start 07/26/19 at 22:00; Stop 07/27/19 at 21:59; Status DC Sodium Chloride 1,000 ml @ 1,000 mls/hr Q1H PRN IV hypotension; Start 07/27/19 at 07:50; Stop 07/27/19 at 13:49; Status DC Albumin Human 200 ml @ 200 mls/hr 1X ONCE IV ; Start 07/27/19 at 08:00; Stop 07/27/19 at 08:53; Status DC Diphenhydramine HCl (Benadryl) 25 mg 1X PRN PRN IV ITCHING; Start 07/27/19 at 08:00; Stop 07/28/19 at 07:59; Status DC Diphenhydramine HCl (Benadryl) 25 mg 1X PRN PRN IV ITCHING; Start 07/27/19 at 08:00; Stop 07/28/19 at 07:59; Status DC Info (PHARMACY MONITORING -- do not chart) 1 each PRN DAILY PRN MC SEE COMMENTS; Start 07/27/19 at 08:00; Stop 07/28/19 at 08:16; Status DC Albumin Human 50 ml @ 50 mls/hr 1X ONCE IV ; Start 07/27/19 at 08:53; Stop 07/27/19 at 08:56; Status DC Albumin Human 200 ml @ 50 mls/hr PRN 1X PRN IV HYPOTENSION Last administered on 08/02/19at 11:54; Start 07/27/19 at 09:00; Stop 09/08/19 at 11:14; Status DC Meropenem 500 mg/ Sodium Chloride 50 ml @ 100 mls/hr Q12H IV Last administered on 08/16/19at 10:45; Start 07/27/19 at 10:00; Stop 08/16/19 at 12:37; Status DC Sodium Chloride 90 meq/Magnesium Sulfate 12 meq/ Calcium Gluconate 15 meq/ Multivitamins 10 ml/Chromium/ Copper/Manganese/ Seleni/Zn 0.5 ml/ Insulin Human Regular 25 unit/ Total Parenteral Nutrition/Amino Acids/Dextrose/ Fat Emulsion Intravenous 1,400 ml @ 58.333 mls/ hr TPN CONT IV Last administered on 07/27/19at 21:41; Start 07/27/19 at 22:00; Stop 07/28/19 at 21:59; Status DC Sodium Chloride 1,000 ml @ 1,000 mls/hr Q1H PRN IV hypotension; Start 07/28/19 at 07:58; Stop 07/28/19 at 13:57; Status DC Albumin Human 200 ml @ 200 mls/hr 1X PRN PRN IV Hypotension Last administered on 07/28/19at 09:30; Start 07/28/19 at 08:00; Stop 07/28/19 at 13:59; Status DC Sodium Chloride 1,000 ml @ 400 mls/hr Q2H30M PRN IV PATENCY; Start 07/28/19 at 07:58; Stop 07/28/19 at 19:57; Status DC Info (PHARMACY MONITORING -- do not chart) 1 each PRN DAILY PRN MC SEE C OMMENTS; Start 07/28/19 at 08:00; Status Cancel Info (PHARMACY MONITORING -- do not chart) 1 each PRN DAILY PRN MC SEE COMMENTS ; Start 07/28/19 at 08:15; Status UNV Sodium Chloride 90 meq/Potassium Phosphate 5 mmol/ Magnesium Sulfate 12 meq/Calcium Gluconate 15 meq/ Multivitamins 10 ml/Chromium/ Copper/Manganese/ Seleni/Zn 0.5 ml/ Insulin Human Regular 30 unit/ Total Parenteral Nu trition/Amino Acids/Dextrose/ Fat Emulsion Intravenous 1,400 ml @ 58.333 mls/ hr TPN CONT IV Last administered on 07/28/19at 22:08; Start 07/28/19 at 22:00; Stop 07/29/19 at 21:59; Status DC Linezolid/Dextrose 300 ml @ 300 mls/hr Q12HR IV Last administered on 08/08/19at 20:40; Start 07/29/19 at 11:00; Stop 08/09/19 at 08:10; Status DC Sodium Chloride 90 meq/Potassium Phosphate 15 mmol/ Magnesium Sulfate 12 meq/Calcium Gluconate 15 meq/ Multivitamins 10 ml/Chromium/ Copper/Manganese/ Seleni/Zn 0.5 ml/ Insulin Human Regular 30 unit/ Total Parenteral Nutrition/Amino Acids/Dextrose/ Fat Emulsion Intravenous 1,400 ml @ 58.333 mls/ hr TPN CONT IV Last administered on 07/29/19at 21:49; Start 07/29/19 at 22:00; Stop 07/30/19 at 21:59; Status DC Sodium Chloride 90 meq/Potassium Phosphate 15 mmol/ Magnesium Sulfate 12 meq/Calcium Gluconate 15 meq/ Multivitamins 10 ml/Chromium/ Copper/Manganese/ Seleni/Zn 0.5 ml/ Insulin Human Regular 40 unit/ Total Parenteral Nutrition/Amino Acids/Dextrose/ Fat Emulsion Intravenous 1,400 ml @ 58.333 mls/ hr TPN CONT IV Last administered on 07/30/19at 21:21; Start 07/30/19 at 22:00; Stop 07/31/19 at 21:59; Status DC Sodium Chloride 1,000 ml @ 1,000 mls/hr Q1H PRN IV hypotension; Start 07/30/19 at 13:26; Stop 07/30/19 at 19:25; Status DC Albumin Human 200 ml @ 200 mls/hr 1X PRN PRN IV Hypotension Last administered on 07/30/19at 15:00; Start 07/30/19 at 13:30; Stop 07/30/19 at 19:29; Status DC Sodium Chloride (Normal Saline Flush) 10 ml 1X PRN PRN IV AP catheter pack; Start 07/30/19 at 13:30; Stop 07/31/19 at 13:29; Status DC Sodium Chloride (Normal Saline Flush) 10 ml 1X PRN PRN IV TANK CHARGER catheter pack; Start 07/30/19 at 13:30; Stop 07/31/19 at 13:29; Status DC Sodium Chloride 1,000 ml @ 400 mls/hr Q2H30M PRN IV PATENCY; Start 07/30/19 at 13:26; Stop 07/31/19 at 01:25; Status DC Info (PHARMACY MONITORING -- do not chart) 1 each PRN DAILY PRN MC SEE C OMMENTS; Start 07/30/19 at 13:30; Stop 07/30/19 at 13:33; Status DC Info (PHARMACY MONITORING -- do not chart) 1 each PRN DAILY PRN MC SEE COMMENTS; Start 07/30/19 at 13:30; Stop 07/30/19 at 13:34; Status DC Sodium Chloride 90 meq/Potassium Phosphate 19 mmol/ Magnesium Sulfate 12 meq/Calcium Gluconate 15 meq/ Multivitamins 10 ml/Chromium/ Copper/Manganese/ Seleni/Zn 0.5 ml/ Insulin Human Regular 40 unit/ Total Parenteral Nutrition/Amino Acids/Dextrose/ Fat Emulsion Intravenous 1,400 ml @ 58.333 mls/ hr TPN CONT IV Last administered on 07/31/19at 21:54; Start 07/31/19 at 22:00; Stop 08/01/19 at 21:59; Status DC Sodium Chloride 1,000 ml @ 1,000 mls/hr Q1H PRN IV hypotension; Start 08/01/19 at 09:35; Stop 08/01/19 at 15:34; Status DC Albumin Human 200 ml @ 200 mls/hr 1X PRN PRN IV Hypotension; Start 08/01/19 at 09:45; Stop 08/01/19 at 15:44; Status DC Diphenhydramine HCl (Benadryl) 25 mg 1X PRN PRN IV ITCHING; Start 08/01/19 at 09:45; Stop 08/02/19 at 09:44; Status DC Diphenhydramine HCl (Benadryl) 25 mg 1X PRN PRN IV ITCHING; Start 08/01/19 at 09:45; Stop 08/02/19 at 09:44; Status DC Sodium Chloride 1,000 ml @ 400 mls/hr Q2H30M PRN IV PATENCY; Start 08/01/19 at 09:35; Stop 08/01/19 at 21:34; Status DC Info (PHARMACY MONITORING -- do not chart) 1 each PRN DAILY PRN MC SEE COMMENTS; Start 08/01/19 at 09:45; Status Cancel Sodium Chloride 100 meq/Potassium Phosphate 19 mmol/ Magnesium Sulfate 12 meq/Calcium Gluconate 15 meq/ Multivitamins 10 ml/Chromium/ Copper/Manganese/ Seleni/Zn 0.5 ml/ Insulin Human Regular 40 unit/ Potassium Chloride 20 meq/ Total Parenteral Nutrition/Amino Acids/Dextrose/ Fat Emulsion Intravenous 1,400 ml @ 58.333 mls/ hr TPN CONT IV Last administered on 08/01/19at 22:02; Start 08/01/19 at 22:00; Stop 08/02/19 at 21:59; Status DC Furosemide (Lasix) 40 mg 1X ONCE IVP Last administered on 08/01/19at 14:39; Start 08/01/19 at 14:30; Stop 08/01/19 at 14:31; Status DC Metronidazole 100 ml @ 100 mls/hr Q8HRS IV Last administered on 08/09/19at 06:04; Start 08/02/19 at 10:00; Stop 08/09/19 at 08:10; Status DC Sodium Chloride 1,000 ml @ 1,000 mls/hr Q1H PRN IV hypotension; Start 08/02/19 at 08:00; Stop 08/02/19 at 13:59; Status DC Albumin Human 200 ml @ 200 mls/hr 1X PRN PRN IV Hypotension; Start 08/02/19 at 08:00; Stop 08/02/19 at 13:59; Status DC Sodium Chloride 1,000 ml @ 400 mls/hr Q2H30M PRN IV PATENCY; Start 08/02/19 at 08:00; Stop 08/02/19 at 19:59; Status DC Info (PHARMACY MONITORING -- do not chart) 1 each PRN DAILY PRN MC SEE COMMENTS; Start 08/02/19 at 11:30; Status UNV Info (PHARMACY MONITORING -- do not chart) 1 each PRN DAILY PRN MC SEE COMMENTS; Start 08/02/19 at 11:30; Stop 08/04/19 at 12:13; Status DC Sodium Chloride 100 meq/Potassium Phosphate 19 mmol/ Magnesium Sulfate 12 meq/Calcium Gluconate 15 meq/ Multivitamins 10 ml/Chromium/ Copper/Manganese/ Seleni/Zn 0.5 ml/ Insulin Human Regular 40 unit/ Potassium Chloride 20 meq/ Total Parenteral Nutrition/Amino Acids/Dextrose/ Fat Emulsion Intravenous 1,400 ml @ 58.333 mls/ hr TPN CONT IV Last administered on 08/02/19at 21:52; Start 08/02/19 at 22:00; Stop 08/03/19 at 21:59; Status DC Sodium Chloride (Normal Saline Flush) 10 ml QSHIFT PRN IV AFTER MEDS AND BLOOD DRAWS; Start 08/02/19 at 15:00; Stop 08/30/19 at 11:27; Status DC Sodium Chloride (Normal Saline Flush) 10 ml PRN Q5MIN PRN IV AFTER MEDS AND BLOOD DRAWS; Start 08/02/19 at 15:00 Sodium Chloride (Normal Saline Flush) 20 ml PRN Q5MIN PRN IV AFTER MEDS AND BLOOD DRAWS; Start 08/02/19 at 15:00 Sodium Chloride 100 meq/Potassium Phosphate 19 mmol/ Magnesium Sulfate 12 meq/Calcium Gluconate 15 meq/ Multivitamins 10 ml/Chromium/ Copper/Manganese/ Seleni/Zn 0.5 ml/ Insulin Human Regular 40 unit/ Potassium Chloride 20 meq/ Total Parenteral Nutrition/Amino Acids/Dextrose/ Fat Emulsion Intravenous 1,400 ml @ 58.333 mls/ hr TPN CONT IV Last administered on 08/03/19at 21:20; Start 08/03/19 at 22:00; Stop 08/04/19 at 21:59; Status DC Lidocaine HCl (Buffered Lidocaine 1%) 3 ml STK-MED ONCE .ROUTE ; Start 08/03/19 at 13:16; Stop 08/03/19 at 13:16; Status DC Lidocaine HCl (Buffered Lidocaine 1%) 6 ml 1X ONCE INJ Last administered on 08/03/19at 13:45; Start 08/03/19 at 13:30; Stop 08/03/19 at 13:31; Status DC Albumin Human 100 ml @ 100 mls/hr 1X ONCE IV Last administered on 08/03/19at 15:41; Start 08/03/19 at 15:00; Stop 08/03/19 at 15:59; Status DC Albumin Human 50 ml @ 50 mls/hr 1X ONCE IV Last administered on 08/03/19at 15:00; Start 08/03/19 at 15:00; Stop 08/03/19 at 15:59; Status DC Info (PHARMACY MONITORING -- do not chart) 1 each PRN DAILY PRN MC SEE COMMENTS; Start 08/04/19 at 11:30; Status Cancel Info (PHARMACY MONITORING -- do not chart) 1 each PRN DAILY PRN MC SEE PIPE LUA; Start 08/04/19 at 11:30; Status UNV Sodium Chloride 100 meq/Potassium Phosphate 10 mmol/ Magnesium Sulfate 12 meq/Calcium Gluconate 15 meq/ Multivitamins 10 ml/Chromium/ Copper/Manganese/ Seleni/Zn 0.5 ml/ Insulin Human Regular 35 unit/ Potassium Chloride 20 meq/ Total Parenteral Nutrition/Amino Acids/Dextrose/ Fat Emulsion Intravenous 1,400 ml @ 58.333 mls/ hr TPN CONT IV Last administered on 08/04/19at 22:10; Start 08/04/19 at 22:00; Stop 08/05/19 at 21:59; Status DC Sodium Chloride 100 meq/Potassium Phosphate 5 mmol/ Magnesium Sulfate 12 meq/Calcium Gluconate 15 meq/ Multivitamins 10 ml/Chromium/ Copper/Manganese/ Seleni/Zn 0.5 ml/ Insulin Human Regular 35 unit/ Potassium Chloride 20 meq/ Total Parenteral Nutrition/Amino Acids/Dextrose/ Fat Emulsion Intravenous 1,400 ml @ 58.333 mls/ hr TPN CONT IV Last administered on 08/05/19at 22:59; Start 08/05/19 at 22:00; Stop 08/06/19 at 21:59; Status DC Sodium Chloride 1,000 ml @ 1,000 mls/hr Q1H PRN IV hypotension; Start 08/06/19 at 08:27; Stop 08/06/19 at 14:26; Status DC Albumin Human 200 ml @ 200 mls/hr 1X PRN PRN IV Hypotension Last administered on 08/06/19at 09:18; Start 08/06/19 at 08:30; Stop 08/06/19 at 14:29; Status DC Sodium Chloride 1,000 ml @ 400 mls/hr Q2H30M PRN IV PATENCY; Start 08/06/19 at 08:27; Stop 08/06/19 at 20:26; Status DC Info (PHARMACY MONITORING -- do not chart) 1 each PRN DAILY PRN MC SEE COMMENT S; Start 08/06/19 at 08:30; Status Cancel Info (PHARMACY MONITORING -- do not chart) 1 each PRN DAILY PRN MC SEE COMMENTS; Start 08/06/19 at 08:30; Stop 08/14/19 at 13:10; Status DC Sodium Chloride 100 meq/Potassium Chloride 40 meq/ Magnesium Sulfate 15 meq/Calcium Gluconate 15 meq/ Multivitamins 10 ml/Chromium/ Copper/Manganese/ Seleni/Zn 0.5 ml/ Insulin Human Regular 35 unit/ Total Parenteral Nutrition/Amino Acids/Dextrose/ Fat Emulsion Intravenous 1,400 ml @ 58.333 mls/ hr TPN CONT IV Last administered on 08/06/19at 22:00; Start 08/06/19 at 22:00; Stop 08/07/19 at 21:59; Status DC Potassium Chloride/Water 100 ml @ 100 mls/hr 1X ONCE IV Last administered on 08/06/19at 17:28; Start 08/06/19 at 14:45; Stop 08/06/19 at 15:44; Status DC Sodium Chloride 100 meq/Potassium Chloride 40 meq/ Magnesium Sulfate 15 meq/Calcium Gluconate 15 meq/ Multivitamins 10 ml/Chromium/ Copper/Manganese/ Seleni/Zn 0.5 ml/ Insulin Human Regular 35 unit/ Total Parenteral Nutrition/Amino Acids/Dextrose/ Fat Emulsion Intravenous 1,400 ml @ 58.333 mls/ hr TPN CONT IV Last administered on 08/07/19at 22:46; Start 08/07/19 at 22:00; Stop 08/08/19 at 21:59; Status DC Sodium Chloride 100 meq/Potassium Chloride 40 meq/ Magnesium Sulfate 20 meq/Calcium Gluconate 15 meq/ Multivitamins 10 ml/Chromium/ Copper/Manganese/ Seleni/Zn 0.5 ml/ Insulin Human Regular 35 unit/ Total Parenteral Nutrition/Amino Acids/Dextrose/ Fat Emulsion Intravenous 1,400 ml @ 58.333 mls/ hr TPN CONT IV Last administered on 08/08/19at 22:31; Start 08/08/19 at 22:00; Stop 08/09/19 at 21:59; Status DC Fentanyl Citrate (Fentanyl 2ml Vial) 50 mcg PRN Q2HR PRN IVP PAIN Last administered on 08/15/19at 13:32; Start 08/08/19 at 21:00; Stop 08/16/19 at 12:53; Status DC Fentanyl Citrate (Fentanyl 2ml Vial) 25 mcg PRN Q2HR PRN IVP PAIN; Start 08/08/19 at 21:00; Stop 08/16/19 at 12:54; Status DC Enoxaparin Sodium (Lovenox 100mg Syringe) 100 mg Q12HR SQ ; Start 08/09/19 at 21:00; Status UNV Amino Acids/ Glycerin/ Electrolytes 1,000 ml @ 75 mls/hr [id number] IV ; Start at 21:15; Status UNV Sodium Chloride 1,000 ml @ 1,000 mls/hr Q1H PRN IV hypotension; Start 08/09/19 at 07:56; Stop 08/09/19 at 13:55; Status DC Albumin Human 200 ml @ 200 mls/hr 1X PRN PRN IV Hypotension Last administered on 08/09/19at 08:40; Start 08/09/19 at 08:00; Stop 08/09/19 at 13:59; Status DC Sodium Chloride 1,000 ml @ 400 mls/hr Q2H30M PRN IV PATENCY; Start 08/09/19 at 07:56; Stop 08/09/19 at 19:55; Status DC Info (PHARMACY MONITORING -- do not chart) 1 each PRN DAILY PRN MC SEE COMME NTS; Start 08/09/19 at 08:00; Status UNV Info (PHARMACY MONITORING -- do not chart) 1 each PRN DAILY PRN MC SEE COMMENTS; Start 08/09/19 at 08:00; Status UNV Daptomycin 430 mg/ Sodium Chloride 50 ml @ 100 mls/hr Q24H IV Last administered on 08/09/19at 12:35; Start 08/09/19 at 09:00; Stop 08/09/19 at 12:49; Status DC Sodium Chloride 100 meq/Potassium Chloride 40 meq/ Magnesium Sulfate 20 meq/Calcium Gluconate 15 meq/ Multivitamins 10 ml/Chromium/ Copper/Manganese/ Seleni/Zn 0.5 ml/ Insulin Human Regular 35 unit/ Total Parenteral Nutrition/Amino Acids/Dextrose/ Fat Emulsion Intravenous 1,400 ml @ 58.333 mls/ hr TPN CONT IV Last administered on 08/09/19at 21:26; Start 08/09/19 at 22:00; Stop 08/10/19 at 21:59; Status DC Daptomycin 430 mg/ Sodium Chloride 50 ml @ 100 mls/hr Q48H IV ; Start 08/11/19 at 09:00; Stop 08/10/19 at 11:55; Status DC Sodium Chloride 100 meq/Potassium Chloride 40 meq/ Magnesium Sulfate 20 meq/Calcium Gluconate 15 meq/ Multivitamins 10 ml/Chromium/ Copper/Manganese/ Seleni/Zn 0.5 ml/ Insulin Human Regular 35 unit/ Total Parenteral Nutrition/Amino Acids/Dextrose/ Fat Emulsion Intravenous 1,400 ml @ 58.333 mls/ hr TPN CONT IV Last administered on 08/10/19at 22:27; Start 08/10/19 at 22:00; Stop 08/11/19 at 21:59; Status DC Daptomycin 430 mg/ Sodium Chloride 50 ml @ 100 mls/hr Q24H IV Last administered on 08/12/19at 15:07; Start 08/10/19 at 13:00; Stop 08/13/19 at 13:15; Status DC Sodium Chloride 100 meq/Potassium Chloride 40 meq/ Magnesium Sulfate 20 meq/Calcium Gluconate 10 meq/ Multivitamins 10 ml/Chromium/ Copper/Manganese/ Seleni/Zn 0.5 ml/ Insulin Human Regular 35 unit/ Total Parenteral Nutrition/Alfaro o Acids/Dextrose/ Fat Emulsion Intravenous 1,400 ml @ 58.333 mls/ hr TPN CONT IV Last administered on 08/12/19at 00:06; Start 08/11/19 at 22:00; Stop 08/12/19 at 21:59; Status DC Alteplase, Recombinant (Cathflo For Central Catheter Clearance) 1 mg 1X ONCE INT CAT Last administered on 08/12/19at 11:44; Start 08/12/19 at 10:45; Stop 08/12/19 at 10:46; Status DC Ondansetron HCl (Zofran) 4 mg PRN Q6HRS PRN IV NAUSEA/VOMITING; Start 08/15/19 at 07:00; Stop 08/16/19 at 06:59; Status DC Fentanyl Citrate (Fentanyl 2ml Vial) 25 mcg PRN Q5MIN PRN IV MILD PAIN 1-3; Start 08/15/19 at 07:00; Stop 08/16/19 at 06:59; Status DC Fentanyl Citrate (Fentanyl 2ml Vial) 50 mcg PRN Q5MIN PRN IV MODERATE TO SEVERE PAIN Last administered on 08/15/19at 10:17; Start 08/15/19 at 07:00; Stop 08/16/19 at 06:59; Status DC Ringer's Solution 1,000 ml @ 30 mls/hr Q24H IV ; Start 08/15/19 at 07:00; Stop 08/15/19 at 18:59; Status DC Lidocaine HCl (Xylocaine-Mpf 1% 2ml Vial) 2 ml PRN 1X PRN ID PRIOR TO IV START; Start 08/15/19 at 07:00; Stop 08/16/19 at 06:59; Status DC Prochlorperazine Edisylate (Compazine) 5 mg PACU PRN PRN IV NAUSEA, MRX1; Start 08/15/19 at 07:00; Stop 08/16/19 at 06:59; Status DC Sodium Acetate 50 meq/Potassium Acetate 55 meq/ Magnesium Sulfate 20 meq/Calcium Gluconate 10 meq/ Multivitamins 10 ml/Chromium/ Copper/Manganese/ Seleni/Zn 0.5 ml/ Insulin Human Regular 35 unit/ Total Parenteral Nutrition/Amino Acids/Dextrose/ Fat Emulsion Intravenous 1,400 ml @ 58.333 mls/ hr TPN CONT IV ; Start 08/12/19 at 22:00; Stop 08/12/19 at 14:15; Status DC Sodium Acetate 50 meq/Potassium Acetate 55 meq/ Magnesium Sulfate 20 meq/Calcium Gluconate 10 meq/ Multivitamins 10 ml/Chromium/ Copper/Manganese/ Seleni/Zn 0.5 ml/ Insulin Human Regular 35 unit/ Total Parenteral Nutrition/Amino Acids/Dextrose/ Fat Emulsion Intravenous 1,800 ml @ 75 mls/hr TPN CONT IV Last administered on 08/12/19at 22:38; Start 08/12/19 at 22:00; Stop 08/13/19 at 21:59; Status DC Sodium Chloride 1,000 ml @ 1,000 mls/hr Q1H PRN IV hypotension; Start 08/12/19 at 15:31; Stop 08/12/19 at 21:30; Status DC Diphenhydramine HCl (Benadryl) 25 mg 1X PRN PRN IV ITCHING; Start 08/12/19 at 15:45; Stop 08/13/19 at 15:44; Status DC Diphenhydramine HCl (Benadryl) 25 mg 1X PRN PRN IV ITCHING; Start 08/12/19 at 15:45; Stop 08/13/19 at 15:44; Status DC Sodium Chloride 1,000 ml @ 400 mls/hr Q2H30M PRN IV PATENCY; Start 08/12/19 at 15:31; Stop 08/13/19 at 03:30; Status DC Info (PHARMACY MONITORING -- do not chart) 1 each PRN DAILY PRN MC SEE COMMENTS; Start 08/12/19 at 15:45; Stop 09/13/19 at 14:14; Status DC Sodium Acetate 50 meq/Potassium Acetate 55 meq/ Magnesium Sulfate 20 meq/Calcium Gluconate 10 meq/ Multivitamins 10 ml/Chromium/ Copper/Manganese/ Seleni/Zn 0.5 ml/ Insulin Human Regular 35 unit/ Total Parenteral Nutrition/Amino Acids/Dextrose/ Fat Emulsion Intravenous 1,800 ml @ 75 mls/hr TPN CONT IV Last administered on 08/13/19at 22:03; Start 08/13/19 at 22:00; Stop 08/14/19 at 21:59; Status DC Daptomycin 430 mg/ Sodium Chloride 50 ml @ 100 mls/hr Q24H IV Last administered on 08/18/19at 13:00; Start 08/13/19 at 13:00; Stop 08/18/19 at 20:58; Status DC Heparin Sodium (Porcine) 1000 unit/Sodium Chloride 1,001 ml @ 1,001 mls/hr 1X ONCE IRR ; Start 08/15/19 at 06:00; Stop 08/15/19 at 06:59; Status DC Potassium Acetate 55 meq/Magnesium Sulfate 20 meq/ Calcium Gluconate 10 meq/ Multivitamins 10 ml/Chromium/ Copper/Manganese/ Seleni/Zn 0.5 ml/ Insulin Human Regular 35 unit/ Total Parenteral Nutrition/Amino Acids/Dextrose/ Fat Emulsion Intravenous 1,920 ml @ 80 mls/hr TPN CONT IV Last administered on 08/14/19at 22:10; Start 08/14/19 at 22:00; Stop 08/15/19 at 21:59; Status DC Dexamethasone Sodium Phosphate (Decadron) 4 mg STK-MED ONCE .ROUTE ; Start 08/15/19 at 10:56; Stop 08/15/19 at 10:57; Status DC Ondansetron HCl (Zofran) 4 mg STK-MED ONCE .ROUTE ; Start 08/15/19 at 10:56; Stop 08/15/19 at 10:57; Status DC Rocuronium Claude (Zemuron) 50 mg STK-MED ONCE .ROUTE ; Start 08/15/19 at 10:56; Stop 08/15/19 at 10:57; Status DC Fentanyl Citrate (Fentanyl 2ml Vial) 100 mcg STK-MED ONCE .ROUTE ; Start 08/15/19 at 10:56; Stop 08/15/19 at 10:57; Status DC Bupivacaine HCl/ Epinephrine Bitart (Sensorcain-Epi 0.5%-1:[id number] Mpf) 30 ml STK-MED ONCE .ROUTE Last administered on 08/15/19at 12:01; Start 08/15/19 at 10:58; Stop 08/15/19 at 10:58; Status DC Cellulose (Surgicel Hemostat 2x14) 1 each STK-MED ONCE .ROUTE ; Start 08/15/19 at 10:58; Stop 08/15/19 at 10:59; Status DC Iohexol (Omnipaque 300 Mg/ml) 50 ml STK-MED ONCE .ROUTE ; Start 08/15/19 at 10:58; Stop 08/15/19 at 10:59; Status DC Cellulose (Surgicel Hemostat 4x8) 1 each STK-MED ONCE .ROUTE ; Start 08/15/19 at 10:58; Stop 08/15/19 at 10:59; Status DC Bisacodyl (Dulcolax Supp) 10 mg STK-MED ONCE .ROUTE ; Start 08/15/19 at 10:59; Stop 08/15/19 at 10:59; Status DC Heparin Sodium (Porcine) 1000 unit/Sodium Chloride 1,001 ml @ 1,001 mls/hr 1X ONCE IRR ; Start 08/15/19 at 12:00; Stop 08/15/19 at 12:59; Status DC Propofol 20 ml @ As Directed STK-MED ONCE IV ; Start 08/15/19 at 11:05; Stop 08/15/19 at 11:05; Status DC Sevoflurane (Ultane) 90 ml STK-MED ONCE IH ; Start 08/15/19 at 11:05; Stop 08/15/19 at 11:05; Status DC Sevoflurane (Ultane) 60 ml STK-MED ONCE IH ; Start 08/15/19 at 12:26; Stop 08/15/19 at 12:27; Status DC Propofol 20 ml @ As Directed STK-MED ONCE IV ; Start 08/15/19 at 12:26; Stop 08/15/19 at 12:27; Status DC Phenylephrine HCl (PHENYLEPHRINE in 0.9% NACL PF) 1 mg STK-MED ONCE IV ; Start 08/15/19 at 12:34; Stop 08/15/19 at 12:34; Status DC Heparin Sodium (Porcine) (Heparin Sodium) 5,000 unit Q12HR SQ Last administered on 08/24/19at 20:57; Start 08/15/19 at 21:00; Stop 08/25/19 at 09:59; Status DC Sodium Chloride (Normal Saline Flush) 3 ml QSHIFT PRN IV AFTER MEDS AND BLOOD DRAWS; Start 08/15/19 at 13:45; Status Cancel Naloxone HCl (Narcan) 0.4 mg PRN Q2MIN PRN IV SEE INSTRUCTIONS Last administered on 09/24/19at 15:15; Start 08/15/19 at 13:45; Stop 10/19/19 at 16:00; Status DC Sodium Chloride 1,000 ml @ 25 mls/hr Q24H IV Last administered on 09/13/19at 13:37; Start 08/15/19 at 13:37; Stop 09/16/19 at 13:09; Status DC Naloxone HCl (Narcan) 0.4 mg PRN Q2MIN PRN IV SEE INSTRUCTIONS; Start 08/15/19 at 14:30; Status UNV Sodium Chloride 1,000 ml @ 25 mls/hr Q24H IV ; Start 08/15/19 at 14:30; Status UNV Hydromorphone HCl 30 ml @ 0 mls/hr CONT PRN PRN IV PER PROTOCOL Last administered on 08/20/19at 16:08; Start 08/15/19 at 14:30; Stop 08/22/19 at 08:55; Status DC Potassium Acetate 55 meq/Magnesium Sulfate 20 meq/ Calcium Gluconate 10 meq/ Multivitamins 10 ml/Chromium/ Copper/Manganese/ Seleni/Zn 0.5 ml/ Insulin Human Regular 35 unit/ Total Parenteral Nutrition/Amino Acids/Dextrose/ Fat Emulsion Intravenous 1,920 ml @ 80 mls/hr TPN CONT IV Last administered on 08/15/19at 22:01; Start 08/15/19 at 22:00; Stop 08/16/19 at 21:59; Status DC Bumetanide (Bumex) 2 mg [id number] IV Last administered on 08/19/19at 13:50; Start 08/16/19 at 14:00; Stop 08/20/19 at 14:10; Status DC Meropenem 1 gm/ Sodium Chloride 100 ml @ 200 mls/hr Q8HRS IV Last administered on 09/09/19at 05:53; Start 08/16/19 at 14:00; Stop 09/09/19 at 09:31; Status DC Potassium Acetate 55 meq/Magnesium Sulfate 20 meq/ Calcium Gluconate 10 meq/ Multivitamins 10 ml/Chromium/ Copper/Manganese/ Seleni/Zn 0.5 ml/ Insulin Human Regular 35 unit/ Total Parenteral Nutrition/Amino Acids/Dextrose/ Fat Emulsion Intravenous 1,920 ml @ 80 mls/hr TPN CONT IV Last administered on 08/16/19at 22:02; Start 08/16/19 at 22:00; Stop 08/17/19 at 21:59; Status DC Hydromorphone HCl (Dilaudid Standard TOBACCO CHECKOUT CLERK) 12 mg STK-MED ONCE IV ; Start 08/15/19 at 14:35; Stop 08/16/19 at 13:53; Status DC Artificial Tears (Artificial Tears) 1 drop PRN Q15MIN PRN OU DRY EYE Last administered on 10/11/19at 21:17; Start 08/17/19 at 05:30 Hydromorphone HCl (Dilaudid Standard TOBACCO CHECKOUT CLERK) 12 mg STK-MED ONCE IV ; Start 08/16/19 at 12:05; Stop 08/17/19 at 09:15; Status DC Potassium Acetate 65 meq/Magnesium Sulfate 20 meq/ Calcium Gluconate 10 meq/ Multivitamins 10 ml/Chromium/ Copper/Manganese/ Seleni/Zn 0.5 ml/ Insulin Human Regular 30 unit/ Total Parenteral Nutrition/Amino Acids/Dextrose/ Fat Emulsion Intravenous 1,920 ml @ 80 mls/hr TPN CONT IV Last administered on 08/17/19at 22:22; Start 08/17/19 at 22:00; Stop 08/18/19 at 21:59; Status DC Cyclobenzaprine HCl (Flexeril) 10 mg PRN Q6HRS PRN PO MUSCLE SPASMS; Start 08/18/19 at 10:45 Potassium Acetate 55 meq/Magnesium Sulfate 20 meq/ Calcium Gluconate 10 meq/ Multivitamins 10 ml/Chromium/ Copper/Manganese/ Seleni/Zn 0.5 ml/ Insulin Human Regular 30 unit/ Total Parenteral Nutrition/Amino Acids/Dextrose/ Fat Emulsion Intravenous 1,920 ml @ 80 mls/hr TPN CONT IV Last administered on 08/19/19at 01:00; Start 08/18/19 at 22:00; Stop 08/19/19 at 21:59; Status DC Magnesium Sulfate 50 ml @ 25 mls/hr 1X ONCE IV Last administered on 08/18/19at 17:18; Start 08/18/19 at 12:45; Stop 08/18/19 at 14:44; Status DC Potassium Chloride/Water 100 ml @ 100 mls/hr 1X ONCE IV Last administered on 08/19/19at 11:27; Start 08/19/19 at 12:00; Stop 08/19/19 at 12:59; Status DC Hydromorphone HCl (Dilaudid Standard TOBACCO CHECKOUT CLERK) 12 mg STK-MED ONCE IV ; Start 08/17/19 at 10:50; Stop 08/19/19 at 11:02; Status DC Hydromorphone HCl (Dilaudid Standard TOBACCO CHECKOUT CLERK) 12 mg STK-MED ONCE IV ; Start 08/18/19 at 13:47; Stop 08/19/19 at 11:03; Status DC Potassium Acetate 30 meq/Magnesium Sulfate 20 meq/ Calcium Gluconate 10 meq/ Multivitamins 10 ml/Chromium/ Copper/Manganese/ Seleni/Zn 0.5 ml/ Insulin Human Regular 30 unit/ Potassium Chloride 30 meq/ Total Parenteral Nutrition/Amino Acids/Dextrose/ Fat Emulsion Intravenous 1,920 ml @ 80 mls/hr TPN CONT IV Last administered on 08/19/19at 22:34; Start 08/19/19 at 22:00; Stop 08/20/19 at 21:59; Status DC Potassium Chloride/Water 100 ml @ 100 mls/hr Q1H IV Last administered on 08/20/19at 13:05; Start 08/20/19 at 07:00; Stop 08/20/19 at 10:59; Status DC Magnesium Sulfate 50 ml @ 25 mls/hr 1X ONCE IV Last administered on 08/20/19at 10:34; Start 08/20/19 at 10:30; Stop 08/20/19 at 12:29; Status DC Potassium Chloride 75 meq/ Magnesium Sulfate 20 meq/Calcium Gluconate 10 meq/ Multivitamins 10 ml/Chromium/ Copper/Manganese/ Seleni/Zn 0.5 ml/ Insulin Human Regular 30 unit/ Total Parenteral Nutrition/Amino Acids/Dextrose/ Fat Emulsion Intravenous 1,920 ml @ 80 mls/hr TPN CONT IV Last administered on 08/20/19at 21:51; Start 08/20/19 at 22:00; Stop 08/21/19 at 22:00; Status DC Potassium Chloride 75 meq/ Magnesium Sulfate 20 meq/Calcium Gluconate 10 meq/ Multivitamins 10 ml/Chromium/ Copper/Manganese/ Seleni/Zn 0.5 ml/ Insulin Human Regular 25 unit/ Total Parenteral Nutrition/Amino Acids/Dextrose/ Fat Emulsion Intravenous 1,920 ml @ 80 mls/hr TPN CONT IV Last administered on 08/21/19at 2 2:04; Start 08/21/19 at 22:00; Stop 08/22/19 at 21:59; Status DC Hydromorphone HCl (Dilaudid) 0.4 mg PRN Q4HRS PRN IVP PAIN Last administered on 08/22/19at 10:57; Start 08/22/19 at 09:00; Stop 08/22/19 at 18:59; Status DC Micafungin Sodium 100 mg/Dextrose 100 ml @ 100 mls/hr Q24H IV Last administered on 09/13/19at 12:17; Start 08/22/19 at 11:00; Stop 09/14/19 at 09:59; Status DC Daptomycin 485 mg/ Sodium Chloride 50 ml @ 100 mls/hr Q24H IV Last administered on 08/29/19at 13:10; Start 08/22/19 at 11:00; Stop 08/30/19 at 07:44; Status DC Potassium Chloride 75 meq/ Magnesium Sulfate 15 meq/Calcium Gluconate 8 meq/ Multivitamins 10 ml/Chromium/ Copper/Manganese/ Seleni/Zn 0.5 ml/ Insulin Human Regular 25 unit/ Total Parenteral Nutrition/Amino Acids/Dextrose/ Fat Emulsion Intravenous 1,920 ml @ 80 mls/hr TPN CONT IV Last administered on 08/22/19at 23:08; Start 08/22/19 at 22:00; Stop 08/23/19 at 21:59; Status DC Haloperidol Lactate (Haldol Inj) 3 mg 1X ONCE IVP Last administered on 08/22/19at 14:37; Start 08/22/19 at 14:30; Stop 08/22/19 at 14:31; Status DC Hydromorphone HCl (Dilaudid) 1 mg PRN Q4HRS PRN IVP PAIN Last administered on 09/05/19at 06:25; Start 08/22/19 at 19:00; Stop 09/05/19 at 17:10; Status DC Potassium Chloride 75 meq/ Magnesium Sulfate 15 meq/Calcium Gluconate 8 meq/ Multivitamins 10 ml/Chromium/ Copper/Manganese/ Seleni/Zn 0.5 ml/ Insulin Human Regular 20 unit/ Total Parenteral Nutrition/Amino Acids/Dextrose/ Fat Emulsion Intravenous 1,920 ml @ 80 mls/hr TPN CONT IV Last administered on 08/23/19at 22:10; Start 08/23/19 at 22:00; Stop 08/24/19 at 21:59; Status DC Lidocaine HCl (Buffered Lidocaine 1%) 3 ml STK-MED ONCE .ROUTE ; Start 08/24/19 at 11:31; Stop 08/24/19 at 11:31; Status DC Lidocaine HCl (Buffered Lidocaine 1%) 3 ml STK-MED ONCE .ROUTE ; Start 08/24/19 at 12:28; Stop 08/24/19 at 12:29; Status DC Lidocaine HCl (Buffered Lidocaine 1%) 6 ml 1X ONCE INJ Last administered on 08/24/19at 12:53; Start 08/24/19 at 12:45; Stop 08/24/19 at 12:46; Status DC Potassium Chloride 75 meq/ Magnesium Sulfate 15 meq/Calcium Gluconate 8 meq/ Multivitamins 10 ml/Chromium/ Copper/Manganese/ Seleni/Zn 0.5 ml/ Insulin Human Regular 20 unit/ Total Parenteral Nutrition/Amino Acids/Dextrose/ Fat Emulsion Intravenous 1,920 ml @ 80 mls/hr TPN CONT IV Last administered on 08/24/19at 22:00; Start 08/24/19 at 22:00; Stop 08/25/19 at 21:59; Status DC Potassium Chloride 75 meq/ Magnesium Sulfate 15 meq/Calcium Gluconate 8 meq/ Multivitamins 10 ml/Chromium/ Copper/Manganese/ Seleni/Zn 0.5 ml/ Insulin Human Regular 15 unit/ Total Parenteral Nutrition/Amino Acids/Dextrose/ Fat Emulsion Intravenous 1,920 ml @ 80 mls/hr TPN CONT IV Last administered on 08/25/19at 22:28; Start 08/25/19 at 22:00; Stop 08/26/19 at 21:59; Status DC Vecuronium Claude (Norcuron Bolus) 6 mg PRN Q6HRS PRN IV VENT ASYNCHRONY; Start 08/25/19 at 19:15; Stop 08/25/19 at 19:35; Status DC Bumetanide (Bumex) 2 mg 1X ONCE IV Last administered on 08/25/19at 22:09; Start 08/25/19 at 19:45; Stop 08/25/19 at 19:46; Status DC Lidocaine HCl (Buffered Lidocaine 1%) 3 ml STK-MED ONCE .ROUTE ; Start 08/26/19 at 07:59; Stop 08/26/19 at 07:59; Status DC Midazolam HCl (Versed) 5 mg STK-MED ONCE .ROUTE ; Start 08/26/19 at 08:36; Stop 08/26/19 at 08:36; Status DC Fentanyl Citrate (Fentanyl 5ml Vial) 250 mcg STK-MED ONCE .ROUTE ; Start 08/26/19 at 08:36; Stop 08/26/19 at 08:37; Status DC Lidocaine HCl (Buffered Lidocaine 1%) 3 ml 1X ONCE IJ Last administered on 08/26/19 09:30; Start 08/26/19 at 09:15; Stop 08/26/19 at 09:16; Status DC Midazolam HCl (Versed) 5 mg 1X ONCE IV Last administered on 08/26/19at 09:30; Start 08/26/19 at 09:15; Stop 08/26/19 at 09:16; Status DC Fentanyl Citrate (Fentanyl 5ml Vial) 250 mcg 1X ONCE IV Last administered on 08/26/19at 09:30; Start 08/26/19 at 09:15; Stop 08/26/19 at 09:16; Status DC Bumetanide (Bumex) 2 mg DAILY IV Last administered on 09/05/19at 08:07; Start 08/26/19 at 10:00; Stop 09/05/19 at 17:15; Status DC Potassium Chloride 75 meq/ Magnesium Sulfate 15 meq/ Multivitamins 10 ml/Chromium/ Copper/Manganese/ Seleni/Zn 0.5 ml/ Insulin Human Regular 15 unit/ Total Parenteral Nutrition/Amino Acids/Dextrose/ Fat Emulsion Intravenous 1,920 ml @ 80 mls/hr TPN CONT IV Last administered on 08/26/19at 21:59; Start 08/26/19 at 22:00; Stop 08/27/19 at 21:59; Status DC Metoclopramide HCl (Reglan Vial) 10 mg PRN Q3HRS PRN IVP NAUSEA/VOMITING-3rd choice Last administered on 09/01/19at 04:25; Start 08/27/19 at 16:45 Potassium Chloride 75 meq/ Magnesium Sulfate 15 meq/ Multivitamins 10 ml/Chromium/ Copper/Manganese/ Seleni/Zn 0.5 ml/ Insulin Human Regular 15 unit/ Total Parenteral Nutrition/Amino Acids/Dextrose/ Fat Emulsion Intravenous 1,920 ml @ 80 mls/hr TPN CONT IV Last administered on 08/27/19at 22:41; Start 08/27/19 at 22:00; Stop 08/28/19 at 21:59; Status DC Magnesium Sulfate 50 ml @ 25 mls/hr 1X ONCE IV Last administered on 08/28/19at 10:44; Start 08/28/19 at 09:00; Stop 08/28/19 at 10:59; Status DC Potassium Chloride/Water 100 ml @ 100 mls/hr 1X ONCE IV Last administered on 08/28/19at 09:37; Start 08/28/19 at 09:00; Stop 08/28/19 at 09:59; Status DC Duloxetine HCl (Cymbalta) 30 mg DAILY PO Last administered on 08/29/19at 09:48; Start 08/28/19 at 14:00; Stop 08/31/19 at 10:25; Status DC Potassium Chloride 80 meq/ Magnesium Sulfate 20 meq/ Multivitamins 10 ml/Chromium/ Copper/Manganese/ Seleni/Zn 0.5 ml/ Insulin Human Regular 15 unit/ Total Parenteral Nutrition/Amino Acids/Dextrose/ Fat Emulsion Intravenous 1,920 ml @ 80 mls/hr TPN CONT IV Last administered on 08/28/19at 21:42; Start 08/28/19 at 22:00; Stop 08/29/19 at 21:59; Status DC Potassium Chloride 80 meq/ Magnesium Sulfate 20 meq/ Multivitamins 10 ml/Chromium/ Copper/Manganese/ Seleni/Zn 0.5 ml/ Insulin Human Regular 15 unit/ Total Parenteral Nutrition/Amino Acids/Dextrose/ Fat Emulsion Intravenous 1,920 ml @ 80 mls/hr TPN CONT IV Last administered on 08/29/19at 22:20; Start 08/29/19 at 22:00; Stop 08/30/19 at 21:59; Status DC Lidocaine HCl (Buffered Lidocaine 1%) 3 ml STK-MED ONCE .ROUTE ; Start 08/30/19 at 09:54; Stop 08/30/19 at 09:55; Status DC Hydromorphone HCl (Dilaudid Standard [employer] CHECK[employer] CLERK) 12 mg STK-MED ONCE IV ; Start 08/19/19 at 15:50; Stop 08/30/19 at 11:24; Status DC Potassium Chloride 80 meq/ Magnesium Sulfate 20 meq/ Multivitamins 10 ml/Chromium/ Copper/Manganese/ Seleni/Zn 0.5 ml/ Insulin Human Regular 15 unit/ Total Parenteral Nutrition/Amino Acids/Dextrose/ Fat Emulsion Intravenous 1,920 ml @ 80 mls/hr TPN CONT IV Last administered on 08/30/19at 21:40; Start 08/30/19 at 22:00; Stop 08/31/19 at 21:59; Status DC Lidocaine HCl (Buffered Lidocaine 1%) 6 ml 1X ONCE INJ Last administered on 08/30/19at 14:15; Start 08/30/19 at 14:15; Stop 08/30/19 at 14:16; Status DC Potassium Chloride 80 meq/ Magnesium Sulfate 20 meq/ Multivitamins 10 ml/Chromium/ Copper/Manganese/ Seleni/Zn 1 ml/ Insulin Human Regular 15 unit/ Total Parenteral Nutrition/Amino Acids/Dextrose/ Fat Emulsion Intravenous 1,920 ml @ 80 mls/hr TPN CONT IV Last administered on 08/31/19at 22:04; Start 08/31/19 at 22:00; Stop 09/01/19 at 21:59; Status DC Potassium Chloride/Water 100 ml @ 100 mls/hr 1X ONCE IV Last administered on 09/01/19at 11:34; Start 09/01/19 at 11:00; Stop 09/01/19 at 11:59; Status DC Potassium Chloride 90 meq/ Magnesium Sulfate 20 meq/ Multivitamins 10 ml/Chromium/ Copper/Manganese/ Seleni/Zn 1 ml/ Insulin Human Regular 15 unit/ Total Parenteral Nutrition/Amino Acids/Dextrose/ Fat Emulsion Intravenous 1,920 ml @ 80 mls/hr TPN CONT IV Last administered on 09/01/19at 22:57; Start 09/01/19 at 22:00; Stop 09/02/19 at 21:59; Status DC Potassium Chloride 90 meq/ Magnesium Sulfate 20 meq/ Multivitamins 10 ml/Chromium/ Copper/Manganese/ Seleni/Zn 1 ml/ Insulin Human Regular 15 unit/ Total Parenteral Nutrition/Amino Acids/Dextrose/ Fat Emulsion Intravenous 1,920 ml @ 80 mls/hr TPN CONT IV Last administered on 09/02/19at 22:48; Start 09/02/19 at 22:00; Stop 09/03/19 at 21:59; Status DC Potassium Chloride 90 meq/ Magnesium Sulfate 20 meq/ Multivitamins 10 ml/Chromium/ Copper/Manganese/ Seleni/Zn 1 ml/ Insulin Human Regular 15 unit/ Total Parenteral Nutrition/Amino Acids/Dextrose/ Fat Emulsion Intravenous 1,890 ml @ 78.75 mls/ hr TPN CONT IV Last administered on 09/03/19at 22:15; Start 09/03/19 at 22:00; Stop 09/04/19 at 21:59; Status DC Linezolid/Dextrose 300 ml @ 300 mls/hr Q12HR IV Last administered on 09/06/19at 21:08; Start 09/04/19 at 09:00; Stop 09/07/19 at 08:11; Status DC Daptomycin 450 mg/ Sodium Chloride 50 ml @ 100 mls/hr Q24H IV Last administered on 09/07/19at 09:25; Start 09/04/19 at 09:00; Stop 09/08/19 at 08:30; Status DC Potassium Chloride 90 meq/ Magnesium Sulfate 20 meq/ Multivitamins 10 ml/Chromi um/ Copper/Manganese/ Seleni/Zn 1 ml/ Insulin Human Regular 15 unit/ Total Parenteral Nutrition/Amino Acids/Dextrose/ Fat Emulsion Intravenous 1,890 ml @ 78.75 mls/ hr TPN CONT IV Last administered on 09/04/19at 21:34; Start 09/04/19 at 22:00; Stop 09/05/19 at 21:59; Status DC Lorazepam (Ativan Inj) 2 mg STK-MED ONCE .ROUTE ; Start 09/04/19 at 14:58; Stop 09/04/19 at 14:58; Status DC Metoprolol Tartrate (Lopressor Vial) 5 mg 1X ONCE IVP Last administered on 09/04/19at 15:31; Start 09/04/19 at 15:15; Stop 09/04/19 at 15:16; Status DC Lorazepam (Ativan Inj) 2 mg 1X ONCE IVP Last administered on 09/04/19at 15:30; Start 09/04/19 at 15:15; Stop 09/04/19 at 15:16; Status DC Enoxaparin Sodium (Lovenox 40mg Syringe) 40 mg Q24H SQ Last administered on 09/23/19at 17:44; Start 09/04/19 at 17:00; Stop 09/25/19 at 06:50; Status DC Lorazepam (Ativan Inj) 1 mg PRN Q4HRS PRN IVP ANXIETY / AGITATION MILD-MOD Last administered on 09/18/19at 15:55; Start 09/04/19 at 19:15; Stop 09/20/19 at 11:45; Status DC Lorazepam (Ativan Inj) 2 mg PRN Q4HRS PRN IVP ANXIETY / AGITATION SEVERE Last administered on 09/19/19at 07:55; Start 09/04/19 at 19:15; Stop 09/20/19 at 11:45; Status DC Fentanyl Citrate (Fentanyl 2ml Vial) 50 mcg PRN Q4HRS PRN IVP SEVERE PAIN Last administered on 10/01/19at 05:15; Start 09/05/19 at 13:15; Stop 10/02/19 at 09:29; Status DC Fentanyl Citrate (Fentanyl 2ml Vial) 25 mcg PRN Q4HRS PRN IVP MODERATE PAIN Last administered on 10/01/19at 00:27; Start 09/05/19 at 13:15; Stop 10/02/19 at 09:30; Status DC Potassium Chloride 90 meq/ Magnesium Sulfate 20 meq/ Multivitamins 10 ml/Chromium/ Copper/Manganese/ Seleni/Zn 1 ml/ Insulin Human Regular 15 unit/ Total Parenteral Nutrition/Amino Acids/Dextrose/ Fat Emulsion Intravenous 1,890 ml @ 78.75 mls/ hr TPN CONT IV Last administered on 09/05/19at 22:18; Start 09/05/19 at 22:00; Stop 09/06/19 at 21:59; Status DC Furosemide (Lasix) 40 mg 1X ONCE IVP Last administered on 09/05/19at 21:51; Start 09/05/19 at 21:45; Stop 09/05/19 at 21:48; Status DC Albumin Human 100 ml @ 100 mls/hr 1X PRN PRN IV SEE COMMENTS; Start 09/06/19 at 01:30 Furosemide (Lasix) 40 mg [id number] IVP Last administered on 09/21/19at 08:04; Start 09/06/19 at 14:00; Stop 09/21/19 at 13:07; Status DC Potassium Chloride 90 meq/ Magnesium Sulfate 20 meq/ Multivitamins 10 ml/Chromium/ Copper/Manganese/ Seleni/Zn 1 ml/ Insulin Human Regular 15 unit/ Total Parenteral Nutrition/Amino Acids/Dextrose/ Fat Emulsion Intravenous 1,800 ml @ 75 mls/hr TPN CONT IV Last administered on 09/06/19at 22:31; Start 09/06/19 at 22:00; Stop 09/07/19 at 21:59; Status DC Potassium Chloride 90 meq/ Magnesium Sulfate 20 meq/ Multivitamins 10 ml/Chromium/ Copper/Manganese/ Seleni/Zn 1 ml/ Insulin Human Regular 15 unit/ Total Parenteral Nutrition/Amino Acids/Dextrose/ Fat Emulsion Intravenous 1,800 ml @ 75 mls/hr TPN CONT IV Last administered on 09/07/19at 22:28; Start 09/07/19 at 22:00; Stop 09/08/19 at 21:59; Status DC Potassium Chloride 110 meq/ Magnesium Sulfate 20 meq/ Multivitamins 10 ml/Chromium/ Copper/Manganese/ Seleni/Zn 1 ml/ Insulin Human Regular 15 unit/ Total Parenteral Nutrition/Amino Acids/Dextrose/ Fat Emulsion Intravenous 1,800 ml @ 75 mls/hr TPN CONT IV Last administered on 09/08/19at 22:01; Start 09/08/19 at 22:00; Stop 09/09/19 at 21:59; Status DC Saliva Substitute (Biotene Moisturizing Mouth) 2 spray PRN Q15MIN PRN PO DRY MOUTH; Start 09/08/19 at 11:00 Potassium Chloride 110 meq/ Magnesium Sulfate 20 meq/ Multivitamins 10 ml/Chromium/ Copper/Manganese/ Seleni/Zn 1 ml/ Insulin Human Regular 15 unit/ Total Parenteral Nutrition/Amino Acids/Dextrose/ Fat Emulsion Intravenous 1,800 ml @ 75 mls/hr TPN CONT IV Last administered on 09/09/19at 22:21; Start 09/09/19 at 22:00; Stop 09/10/19 at 21:59; Status DC Potassium Chloride 110 meq/ Magnesium Sulfate 20 meq/ Multivitamins 10 ml/Chromium/ Copper/Manganese/ Seleni/Zn 1 ml/ Insulin Human Regular 15 unit/ Total Parenteral Nutrition/Amino Acids/Dextrose/ Fat Emulsion Intravenous 1,800 ml @ 75 mls/hr TPN CONT IV Last administered on 09/10/19at 22:04; Start 09/10/19 at 22:00; Stop 09/11/19 at 21:59; Status DC Potassium Chloride 110 meq/ Magnesium Sulfate 20 meq/ Multivitamins 10 ml/Chromium/ Copper/Manganese/ Seleni/Zn 1 ml/ Insulin Human Regular 15 unit/ Total Parenteral Nutrition/Amino Acids/Dextrose/ Fat Emulsion Intravenous 1,800 ml @ 75 mls/hr TPN CONT IV Last administered on 09/11/19at 22:48; Start 09/11/19 at 22:00; Stop 09/12/19 at 21:59; Status DC Potassium Chloride 70 meq/ Magnesium Sulfate 20 meq/ Multivitamins 10 ml/Chromium/ Copper/Manganese/ Seleni/Zn 1 ml/ Insulin Human Regular 15 unit/ Total Parenteral Nutrition/Amino Acids/Dextrose/ Fat Emulsion Intravenous 1,800 ml @ 75 mls/hr TPN CONT IV Last administered on 09/12/19at 21:39; Start 09/12/19 at 22:00; Stop 09/13/19 at 21:59; Status DC Meropenem 500 mg/ Sodium Chloride 50 ml @ 100 mls/hr Q6HRS IV Last administered on 09/14/19at 06:02; Start 09/12/19 at 18:00; Stop 09/14/19 at 09:59; Status DC Barium Sulfate (Varibar Thin Liquid Apple) 148 gm 1X ONCE PO ; Start 09/13/19 at 11:45; Stop 09/13/19 at 11:49; Status DC Potassium Chloride 70 meq/ Magnesium Sulfate 20 meq/ Multivitamins 10 ml/Chromium/ Copper/Manganese/ Seleni/Zn 1 ml/ Insulin Human Regular 15 unit/ Total Parenteral Nutrition/Amino Acids/Dextrose/ Fat Emulsion Intravenous 1,800 ml @ 75 mls/hr TPN CONT IV Last administered on 09/13/19at 22:27; Start 09/13/19 at 22:00; Stop 09/14/19 at 21:59; Status DC Piperacillin Sod/ Tazobactam Sod 3.375 gm/Sodium Chloride 50 ml @ 100 mls/hr Q6HRS IV Last administered on 09/22/19at 06:10; Start 09/14/19 at 12:00; Stop 09/22/19 at 07:26; Status DC Potassium Chloride 70 meq/ Magnesium Sulfate 20 meq/ Multivitamins 10 ml/Chromium/ Copper/Manganese/ Seleni/Zn 1 ml/ Insulin Human Regular 15 unit/ Total Parenteral Nutrition/Amino Acids/Dextrose/ Fat Emulsion Intravenous 1,800 ml @ 75 mls/hr TPN CONT IV Last administered on 09/14/19at 22:03; Start 09/14/19 at 22:00; Stop 09/15/19 at 21:59; Status DC Potassium Chloride 70 meq/ Magnesium Sulfate 20 meq/ Multivitamins 10 ml/Chromium/ Copper/Manganese/ Seleni/Zn 1 ml/ Insulin Human Regular 15 unit/ Total Parenteral Nutrition/Amino Acids/Dextrose/ Fat Emulsion Intravenous 1,800 ml @ 75 mls/hr TPN CONT IV Last administered on 09/15/19at 22:33; Start 09/15/19 at 22:00; Stop 09/16/19 at 21:59; Status DC Potassium Chloride 70 meq/ Magnesium Sulfate 20 meq/ Multivitamins 10 ml/Chromium/ Copper/Manganese/ Seleni/Zn 1 ml/ Insulin Human Regular 15 unit/ Total Parenteral Nutrition/Amino Acids/Dextrose/ Fat Emulsion Intravenous 1,800 ml @ 75 mls/hr TPN CONT IV Last administered on 09/16/19at 23:13; Start 09/16/19 at 22:00; Stop 09/17/19 at 21:59; Status DC Potassium Chloride 80 meq/ Magnesium Sulfate 20 meq/ Multivitamins 10 ml/Chromium/ Copper/Manganese/ Seleni/Zn 1 ml/ Insulin Human Regular 15 unit/ Total Parenteral Nutrition/Amino Acids/Dextrose/ Fat Emulsion Intravenous 1,800 ml @ 75 mls/hr TPN CONT IV Last administered on 09/17/19at 22:30; Start 09/17/19 at 22:00; Stop 09/18/19 at 21:59; Status DC Potassium Chloride 80 meq/ Magnesium Sulfate 20 meq/ Multivitamins 10 ml/Chromium/ Copper/Manganese/ Seleni/Zn 1 ml/ Insulin Human Regular 15 unit/ Total Parenteral Nutrition/Amino Acids/Dextrose/ Fat Emulsion Intravenous 1,800 ml @ 75 mls/hr TPN CONT IV Last administered on 09/18/19at 21:54; Start 09/18/19 at 22:00; Stop 09/19/19 at 21:59; Status DC Potassium Chloride/Water 100 ml @ 100 mls/hr 1X ONCE IV Last administered on 09/19/19at 10:15; Start 09/19/19 at 10:00; Stop 09/19/19 at 10:59; Status DC Potassium Chloride 90 meq/ Magnesium Sulfate 20 meq/ Multivitamins 10 m l/Chromium/ Copper/Manganese/ Seleni/Zn 1 ml/ Insulin Human Regular 20 unit/ Total Parenteral Nutrition/Amino Acids/Dextrose/ Fat Emulsion Intravenous 1,800 ml @ 75 mls/hr TPN CONT IV Last administered on 09/19/19at 22:28; Start 09/19/19 at 22:00; Stop 09/20/19 at 21:59; Status DC Potassium Chloride 90 meq/ Magnesium Sulfate 20 meq/ Multivitamins 10 ml/Chromium/ Copper/Manganese/ Seleni/Zn 1 ml/ Insulin Human Regular 20 unit/ Total Parenteral Nutrition/Amino Acids/Dextrose/ Fat Emulsion Intravenous 1,800 ml @ 75 mls/hr TPN CONT IV Last administered on 09/20/19at 22:08; Start 09/20/19 at 22:00; Stop 09/21/19 at 21:59; Status DC Lorazepam (Ativan Inj) 0.25 mg PRN Q4HRS PRN IVP ANXIETY / AGITATION Last administered on 10/15/19at 13:37; Start 09/21/19 at 07:30 Potassium Chloride 90 meq/ Magnesium Sulfate 20 meq/ Multivitamins 10 ml/Chromium/ Copper/Manganese/ Seleni/Zn 1 ml/ Insulin Human Regular 20 unit/ Total Parenteral Nutrition/Amino Acids/Dextrose/ Fat Emulsion Intravenous 1,800 ml @ 75 mls/hr TPN CONT IV Last administered on 09/21/19at 23:13; Start 09/21/19 at 22:00; Stop 09/22/19 at 21:59; Status DC Furosemide (Lasix) 40 mg DAILY IVP Last administered on 09/23/19at 11:14; Start 09/21/19 at 13:30; Stop 09/25/19 at 09:12; Status DC Fluoxetine HCl (PROzac) 20 mg QHS PEG Last administered on 10/23/19at 21:14; Start 09/22/19 at 21:00 Fentanyl (Duragesic 50mcg/ Hr Patch) 1 patch Q72H TD Last administered on 09/22/19at 21:22; Start 09/22/19 at 21:00; Stop 10/01/19 at 12:00; Status DC Potassium Chloride 40 meq/ Potassium Acetate 60 meq/Magnesium Sulfate 10 meq/ Multivitamins 10 ml/Chromium/ Copper/Manganese/ Seleni/Zn 1 ml/ Insulin Human Regular 20 unit/ Total Parenteral Nutrition/Amino Acids/Dextrose/ Fat Emulsion Intravenous 1,800 ml @ 75 mls/hr TPN CONT IV Last administered on 09/23/19at 00:03; Start 09/22/19 at 22:00; Stop 09/23/19 at 21:59; Status DC Potassium Acetate 80 meq/Magnesium Sulfate 5 meq/ Multivitamins 10 ml/Chromium/ Copper/Manganese/ Seleni/Zn 1 ml/ Insulin Human Regular 20 unit/ Total Parenteral Nutrition/Amino Acids/Dextrose/ Fat Emulsion Intravenous 1,920 ml @ 80 mls/hr TPN CONT IV Last administered on 09/23/19at 21:59; Start 09/23/19 at 22:00; Stop 09/24/19 at 21:59; Status DC Potassium Acetate 60 meq/Magnesium Sulfate 5 meq/ Multivitamins 10 ml/Chromium/ Copper/Manganese/ Seleni/Zn 1 ml/ Insulin Human Regular 30 unit/ Total Parenteral Nutrition/Amino Acids/Dextrose/ Fat Emulsion Intravenous 1,920 ml @ 80 mls/hr TPN CONT IV Last administered on 09/24/19at 21:54; Start 09/24/19 at 22:00; Stop 09/25/19 at 21:59; Status DC Norepinephrine Bitartrate 8 mg/ Dextrose 258 ml @ 13.332 mls/ hr CONT PRN IV PER PROTOCOL Last administered on 10/20/19at 09:09; Start 09/25/19 at 06:30 Albumin Human 500 ml @ 125 mls/hr 1X ONCE IV Last administered on 09/25/19at 08:10; Start 09/25/19 at 08:15; Stop 09/25/19 at 12:14; Status DC Potassium Acetate 40 meq/Magnesium Sulfate 5 meq/ Multivitamins 10 ml/Chromium/ Copper/Manganese/ Seleni/Zn 1 ml/ Insulin Human Regular 30 unit/ Total Parenteral Nutrition/Amino Acids/Dextrose/ Fat Emulsion Intravenous 1,920 ml @ 80 mls/hr TPN CONT IV Last administered on 09/25/19at 22:23; Start 09/25/19 at 22:00; Stop 09/26/19 at 21:59; Status DC Meropenem 1 gm/ Sodium Chloride 100 ml @ 200 mls/hr Q8HRS IV ; Start 09/25/19 at 14:00; Status Cancel Meropenem 1 gm/ Sodium Chloride 100 ml @ 200 mls/hr Q8HRS IV Last administered on 09/25/19at 11:04; Start 09/25/19 at 10:00; Stop 09/25/19 at 13:00; Status DC Meropenem 1 gm/ Sodium Chloride 100 ml @ 200 mls/hr Q12HR IV Last administered on 10/13/19at 08:27; Start 09/25/19 at 21:00; Stop 10/13/19 at 08:56; Status DC Sodium Chloride 1,000 ml @ 1,000 mls/hr 1X ONCE IV Last administered on 09/25/19at 11:06; Start 09/25/19 at 10:45; Stop 09/25/19 at 11:44; Status DC Micafungin Sodium 100 mg/Dextrose 100 ml @ 100 mls/hr Q24H IV Last administered on 10/12/19at 12:34; Start 09/25/19 at 11:00; Stop 10/13/19 at 08:56; Status DC Daptomycin 410 mg/ Sodium Chloride 50 ml @ 100 mls/hr Q24H IV Last administered on 09/27/19at 13:33; Start 09/25/19 at 14:00; Stop 09/28/19 at 08:30; Status DC Midazolam HCl (Versed) 2 mg STK-MED ONCE .ROUTE ; Start 09/25/19 at 14:47; Stop 09/25/19 at 14:48; Status DC Fentanyl Citrate (Fentanyl 2ml Vial) 100 mcg STK-MED ONCE .ROUTE ; Start 09/25/19 at 14:47; Stop 09/25/19 at 14:48; Status DC Flumazenil (Romazicon) 0.5 mg STK-MED ONCE IV ; Start 09/25/19 at 14:48; Stop 09/25/19 at 14:48; Status DC Naloxone HCl (Narcan) 0.4 mg STK-MED ONCE .ROUTE ; Start 09/25/19 at 14:48; Stop 09/25/19 at 14:48; Status DC Lidocaine HCl (Lidocaine 1% 20ml Vial) 20 ml STK-MED ONCE .ROUTE ; Start 09/25/19 at 14:48; Stop 09/25/19 at 14:48; Status DC Midazolam HCl (Versed) 2 mg 1X ONCE IV Last administered on 09/25/19at 15:28; Start 09/25/19 at 15:00; Stop 09/25/19 at 15:01; Status DC Fentanyl Citrate (Fentanyl 2ml Vial) 100 mcg 1X ONCE IV Last administered on 09/25/19at 15:28; Start 09/25/19 at 15:00; Stop 09/25/19 at 15:01; Status DC Lidocaine HCl (Lidocaine 1% 20ml Vial) 20 ml 1X ONCE INJ Last administered on 09/25/19at 15:30; Start 09/25/19 at 15:00; Stop 09/25/19 at 15:01; Status DC Sodium Chloride 1,000 ml @ 100 mls/hr Q10H IV Last administered on 10/04/19at 07:30; Start 09/25/19 at 20:00; Stop 10/04/19 at 11:26; Status DC Sodium Bicarbonate (Sodium Bicarb Adult 8.4% Syr) 50 meq 1X ONCE IV Last administered on 09/25/19at 21:47; Start 09/25/19 at 22:00; Stop 09/25/19 at 22:01; Status DC Potassium Acetate 40 meq/Magnesium Sulfate 5 meq/ Multivitamins 10 ml/Chromium/ Copper/Manganese/ Seleni/Zn 1 ml/ Insulin Human Regular 30 unit/ Total Parenteral Nutrition/Amino Acids/Dextrose/ Fat Emulsion Intravenous 1,920 ml @ 80 mls/hr TPN CONT IV Last administered on 09/26/19at 22:28; Start 09/26/19 at 22:00; Stop 09/27/19 at 21:59; Status DC Sodium Chloride 500 ml @ 500 mls/hr 1X ONCE IV Last administered on 09/27/19at 06:39; Start 09/27/19 at 06:45; Stop 09/27/19 at 07:44; Status DC Potassium Acetate 40 meq/Magnesium Sulfate 5 meq/ Multivitamins 10 ml/Chromium/ Copper/Manganese/ Seleni/Zn 1 ml/ Insulin Human Regular 30 unit/ Total Parenteral Nutrition/Amino Acids/Dextrose/ Fat Emulsion Intravenous 1,920 ml @ 80 mls/hr TPN CONT IV Last administered on 09/27/19at 22:03; Start 09/27/19 at 22:00; Stop 09/28/19 at 21:59; Status DC Metoprolol Tartrate (Lopressor Vial) 5 mg PRN Q6HRS PRN IVP HYPERTENSION Last administered on 10/06/19at 10:14; Start 09/28/19 at 09:00 Potassium Acetate 40 meq/Magnesium Sulfate 5 meq/ Multivitamins 10 ml/Chromium/ Copper/Manganese/ Seleni/Zn 1 ml/ Insulin Human Regular 30 unit/ Total Parenteral Nutrition/Amino Acids/Dextrose/ Fat Emulsion Intravenous 1,920 ml @ 80 mls/hr TPN CONT IV Last administered on 09/28/19at 21:26; Start 09/28/19 at 22:00; Stop 09/29/19 at 21:59; Status DC Potassium Acetate 40 meq/Magnesium Sulfate 5 meq/ Multivitamins 10 ml/Chromium/ Copper/Manganese/ Seleni/Zn 1 ml/ Insulin Human Regular 30 unit/ Total Parenteral Nutrition/Amino Acids/Dextrose/ Fat Emulsion Intravenous 1,920 ml @ 80 mls/hr TPN CONT IV Last administered on 09/29/19at 23:23; Start 09/29/19 at 22:00; Stop 09/30/19 at 21:59; Status DC Potassium Acetate 40 meq/Magnesium Sulfate 5 meq/ Multivitamins 10 ml/Chromium/ Copper/Manganese/ Seleni/Zn 1 ml/ Insulin Human Regular 30 unit/ Total Parenteral Nutrition/Amino Acids/Dextrose/ Fat Emulsion Intravenous 1,920 ml @ 80 mls/hr TPN CONT IV Last administered on 09/30/19at 21:35; Start 09/30/19 at 22:00; Stop 10/01/19 at 21:59; Status DC Furosemide (Lasix) 20 mg 1X ONCE IVP Last administered on 10/01/19at 06:26; Start 10/01/19 at 06:15; Stop 10/01/19 at 06:16; Status DC Methylprednisolone Sodium Succinate (SOLU-Medrol 125MG VIAL) 125 mg 1X ONCE IV Last administered on 10/01/19at 06:26; Start 10/01/19 at 06:15; Stop 10/01/19 at 06:16; Status DC Albuterol/ Ipratropium (Duoneb) 3 ml Q4HRS NEB Last administered on 10/24/19at 08:00; Start 10/01/19 at 08:00 Fentanyl Citrate 30 ml @ 0 mls/hr CONT PRN IV SEE PROTOCOL Last administered on 10/22/19at 08:03; Start 10/01/19 at 06:00; Stop 10/22/19 at 12:42; Status DC Propofol 100 ml @ 0 mls/hr CONT PRN IV SEE PROTOCOL Last administered on 10/08/19at 23:50; Start 10/01/19 at 06:00 Fentanyl Citrate (Fentanyl 2ml Vial) 25 mcg PRN Q1HR PRN IV SEE COMMENTS; Start 10/01/19 at 06:00 Fentanyl Citrate (Fentanyl 2ml Vial) 50 mcg PRN Q1HR PRN IV SEE COMMENTS; Start 10/01/19 at 06:00 Chlorhexidine Gluconate (Peridex) 15 ml BID MM ; Start 10/01/19 at 09:00; Stop 10/01/19 at 07:58; Status DC Potassium Acetate 40 meq/Magnesium Sulfate 5 meq/ Multivitamins 10 ml/Chromium/ Copper/Manganese/ Seleni/Zn 1 ml/ Insulin Human Regular 30 unit/ Total Parenteral Nutrition/Amino Acids/Dextrose/ Fat Emulsion Intravenous 1,920 ml @ 80 mls/hr TPN CONT IV Last administered on 10/01/19at 21:19; Start 10/01/19 at 22:00; Stop 10/02/19 at 21:59; Status DC Acetylcysteine (Mucomyst 20% Resp Treatment) 600 mg BID NEB Last administered on 10/07/19at 09:33; Start 10/01/19 at 21:00; Stop 10/07/19 at 10:39; Status DC Magnesium Sulfate 100 ml @ 25 mls/hr 1X ONCE IV Last administered on 10/01/19at 15:48; Start 10/01/19 at 15:45; Stop 10/01/19 at 19:44; Status DC Potassium Acetate 40 meq/Magnesium Sulfate 5 meq/ Multivitamins 10 ml/Chromium/ Copper/Manganese/ Seleni/Zn 1 ml/ Insulin Human Regular 30 unit/ Total Parenteral Nutrition/Amino Acids/Dextrose/ Fat Emulsion Intravenous 1,920 ml @ 80 mls/hr TPN CONT IV Last administered on 10/02/19at 21:35; Start 10/02/19 at 22:00; Stop 10/03/19 at 21:59; Status DC Potassium Chloride/Water 100 ml @ 100 mls/hr Q1H IV Last administered on 10/03/19at 08:31; Start 10/03/19 at 07:00; Stop 10/03/19 at 08:59; Status DC Potassium Acetate 40 meq/Magnesium Sulfate 5 meq/ Multivitamins 10 ml/Chromium/ Copper/Manganese/ Seleni/Zn 1 ml/ Insulin Human Regular 30 unit/ Total Parenteral Nutrition/Amino Acids/Dextrose/ Fat Emulsion Intravenous 1,920 ml @ 80 mls/hr TPN CONT IV Last administered on 10/03/19at 21:54; Start 10/03/19 at 22:00; Stop 10/04/19 at 19:34; Status DC Lidocaine HCl (Buffered Lidocaine 1%) 3 ml STK-MED ONCE .ROUTE ; Start 10/03/19 at 12:14; Stop 10/03/19 at 12:14; Status DC Lidocaine HCl (Buffered Lidocaine 1%) 3 ml 1X ONCE IJ Last administered on 10/03/19at 13:11; Start 10/03/19 at 13:00; Stop 10/03/19 at 13:01; Status DC Magnesium Sulfate 50 ml @ 25 mls/hr 1X ONCE IV ; Start 10/04/19 at 08:15; Stop 10/04/19 at 10:14; Status DC Potassium Acetate 40 meq/Magnesium Sulfate 10 meq/ Multivitamins 10 ml/Chromium/ Copper/Manganese/ Seleni/Zn 1 ml/ Insulin Human Regular 20 unit/ Total Parenteral Nutrition/Amino Acids/Dextrose/ Fat Emulsion Intravenous 1,920 ml @ 80 mls/hr TPN CONT IV Last administered on 10/04/19at 21:32; Start 10/04/19 at 22:00; Stop 10/05/19 at 21:59; Status DC Potassium Chloride/Water 100 ml @ 100 mls/hr Q1H IV Last administered on 10/05/19at 09:12; Start 10/05/19 at 08:00; Stop 10/05/19 at 09:59; Status DC Alteplase, Recombinant (Cathflo For Central Catheter Clearance) 4 mg 1X ONCE INT CAT ; Start 10/05/19 at 09:15; Stop 10/05/19 at 09:16; Status UNV Alteplase, Recombinant (Cathflo For Central Catheter Clearance) 4 mg 1X ONCE INT CAT ; Start 10/05/19 at 09:15; Stop 10/05/19 at 09:16; Status UNV Alteplase, Recombinant (Cathflo For Central Catheter Clearance) 4 mg 1X ONCE INT CAT ; Start 10/05/19 at 09:15; Stop 10/05/19 at 09:16; Status UNV Alteplase, Recombinant 4 mg/ Sodium Chloride 20 ml @ 20 mls/hr 1X ONCE IV Last administered on 10/05/19at 10:10; Start 10/05/19 at 10:00; Stop 10/05/19 at 10:59; Status DC Alteplase, Recombinant 4 mg/ Sodium Chloride 20 ml @ 20 mls/hr 1X ONCE IV Last administered on 10/05/19at 10:09; Start 10/05/19 at 10:00; Stop 10/05/19 at 10:59; Status DC Alteplase, Recombinant 4 mg/ Sodium Chloride 20 ml @ 20 mls/hr 1X ONCE IV Last administered on 10/05/19at 10:09; Start 10/05/19 at 10:00; Stop 10/05/19 at 10:59; Status DC Potassium Acetate 60 meq/Magnesium Sulfate 10 meq/ Multivitamins 10 ml/Chromium/ Copper/Manganese/ Seleni/Zn 1 ml/ Insulin Human Regular 20 unit/ Total Parenteral Nutrition/Amino Acids/Dextrose/ Fat Emulsion Intravenous 1,920 ml @ 80 mls/hr TPN CONT IV Last administered on 10/05/19at 21:55; Start 10/05/19 at 22:00; Stop 10/06/19 at 21:59; Status DC Albumin Human 500 ml @ 125 mls/hr 1X ONCE IV Last administered on 10/06/19at 12:01; Start 10/06/19 at 11:15; Stop 10/06/19 at 15:14; Status DC Sodium Chloride 500 ml @ 500 mls/hr 1X ONCE IV Last administered on 10/06/19at 13:50; Start 10/06/19 at 11:15; Stop 10/06/19 at 12:14; Status DC Potassium Acetate 60 meq/Magnesium Sulfate 14 meq/ Multivitamins 10 ml/Chromium/ Copper/Manganese/ Seleni/Zn 1 ml/ Insulin Human Regular 20 unit/ Total Parent eral Nutrition/Amino Acids/Dextrose/ Fat Emulsion Intravenous 1,920 ml @ 80 mls/hr TPN CONT IV Last administered on 10/06/19at 22:26; Start 10/06/19 at 22:00; Stop 10/07/19 at 21:59; Status DC Ciprofloxacin/ Dextrose 200 ml @ 200 mls/hr Q12HR IV Last administered on 10/13/19at 08:27; Start 10/06/19 at 21:00; Stop 10/13/19 at 08:56; Status DC Albumin Human 250 ml @ 62.5 mls/hr 1X ONCE IV Last administered on 10/07/19at 11:09; Start 10/07/19 at 11:00; Stop 10/07/19 at 14:59; Status DC Furosemide (Lasix) 20 mg 1X ONCE IVP Last administered on 10/07/19at 14:52; Start 10/07/19 at 10:45; Stop 10/07/19 at 10:49; Status DC Potassium Acetate 60 meq/Magnesium Sulfate 14 meq/ Multivitamins 10 ml/Chromium/ Copper/Manganese/ Seleni/Zn 1 ml/ Insulin Human Regular 15 unit/ Total Parenteral Nutrition/Amino Acids/Dextrose/ Fat Emulsion Intravenous 1,920 ml @ 80 mls/hr TPN CONT IV Last administered on 10/07/19at 22:08; Start 10/07/19 at 22:00; Stop 10/08/19 at 21:59; Status DC Potassium Acetate 60 meq/Magnesium Sulfate 14 meq/ Multivitamins 10 ml/Chromium/ Copper/Manganese/ Seleni/Zn 1 ml/ Insulin Human Regular 15 unit/ Total Parenteral Nutrition/Amino Acids/Dextrose/ Fat Emulsion Intravenous 1,920 ml @ 80 mls/hr TPN CONT IV Last administered on 10/08/19at 22:12; Start 10/08/19 at 22:00; Stop 10/09/19 at 21:59; Status DC Potassium Acetate 60 meq/Magnesium Sulfate 14 meq/ Multivitamins 10 ml/Chromium/ Copper/Manganese/ Seleni/Zn 1 ml/ Insulin Human Regular 15 unit/ Total Parenteral Nutrition/Amino Acids/Dextrose/ Fat Emulsion Intravenous 1,920 ml @ 80 mls/hr TPN CONT IV Last administered on 10/09/19at 22:22; Start 10/09/19 at 22:00; Stop 10/10/19 at 21:59; Status DC Furosemide (Lasix) 20 mg 1X ONCE IVP Last administered on 10/10/19at 11:07; Start 10/10/19 at 10:30; Stop 10/10/19 at 10:34; Status DC Potassium Acetate 60 meq/Magnesium Sulfate 14 meq/ Multivitamins 10 ml/Chromium/ Copper/Manganese/ Seleni/Zn 1 ml/ Insulin Human Regular 15 unit/ Sodium Chloride 20 meq/Total Parenteral Nutrition/Amino Acids/Dextrose/ Fat Emulsion Intravenous 1,920 ml @ 80 mls/hr TPN CONT IV Last administered on 10/10/19at 21:54; Start 10/10/19 at 22:00; Stop 10/11/19 at 21:59; Status DC Potassium Acetate 30 meq/Magnesium Sulfate 14 meq/ Multivitamins 10 ml/Chromium/ Copper/Manganese/ Seleni/Zn 1 ml/ Insulin Human Regular 15 unit/ Sodium Chloride 20 meq/Potassium Chloride 30 meq/ Total Parenteral Nutrition/Amino Acids/Dextrose/ Fat Emulsion Intravenous 1,920 ml @ 80 mls/hr TPN CONT IV Last administered on 10/11/19at 21:46; Start 10/11/19 at 22:00; Stop 10/12/19 at 21:59; Status DC Sodium Chloride 80 meq/Potassium Chloride 30 meq/ Potassium Acetate 30 meq/ Magnesium Sulfate 14 meq/ Multivitamins 10 ml/Chromium/ Copper/Manganese/ Seleni/Zn 1 ml/ Insulin Human Regular 15 unit/ Total Parenteral Nutrition/Amino Acids/Dextrose/ Fat Emulsion Intravenous 1,920 ml @ 80 mls/hr TPN CONT IV Last administered on 10/12/19at 22:33; Start 10/12/19 at 22:00; Stop 10/13/19 at 21:59; Status DC Furosemide (Lasix) 40 mg 1X ONCE IVP Last administered on 10/12/19at 16:27; Start 10/12/19 at 15:30; Stop 10/12/19 at 15:33; Status DC Albumin Human 250 ml @ 62.5 mls/hr 1X ONCE IV Last administered on 10/12/19at 16:27; Start 10/12/19 at 15:30; Stop 10/12/19 at 19:29; Status DC Sodium Chloride 80 meq/Potassium Chloride 30 meq/ Potassium Acetate 30 meq/Magnesium Sulfate 14 meq/ Multivitamins 10 ml/Chromium/ Copper/Manganese/ Seleni/Zn 1 ml/ Insulin Human Regular 15 unit/ Total Parenteral Nutrition/Amino Acids/Dextrose/ Fat Emulsion Intravenous 1,920 ml @ 80 mls/hr TPN CONT IV Last administered on 10/13/19at 22:25; Start 10/13/19 at 22:00; Stop 10/14/19 at 21:59; Status DC Sodium Chloride 80 meq/Potassium Chloride 30 meq/ Potassium Acetate 30 meq/Magnesium Sulfate 14 meq/ Multivitamins 10 ml/Chromium/ Copper/Manganese/ Seleni/Zn 1 ml/ Insulin Human Regular 15 unit/ Total Parenteral Nutrition/Amino Acids/Dextrose/ Fat Emulsion Intravenous 1,920 ml @ 80 mls/hr TPN CONT IV Last administered on 10/14/19at 21:32; Start 10/14/19 at 22:00; Stop 10/15/19 at 21:59; Status DC Sodium Chloride 80 meq/Potassium Chloride 30 meq/ Potassium Acetate 30 meq/Magnesium Sulfate 14 meq/ Multivitamins 10 ml/Chromium/ Copper/Manganese/ Seleni/Zn 1 ml/ Insulin Human Regular 15 unit/ Total Parenteral Nutrition/Amino Acids/Dextrose/ Fat Emulsion Intravenous 1,920 ml @ 80 mls/hr TPN CONT IV Last administered on 10/15/19at 21:53; Start 10/15/19 at 22:00; Stop 10/16/19 at 21:59; Status DC Acetylcysteine (Mucomyst 20% Resp Treatment) 600 mg RTBID NEB Last administered on 10/24/19at 08:00; Start 10/15/19 at 12:00 Sodium Chloride 80 meq/Potassium Chloride 30 meq/ Potassium Acetate 30 meq/Magnesium Sulfate 14 meq/ Multivitamins 10 ml/Chromium/ Copper/Manganese/ Seleni/Zn 1 ml/ Insulin Human Regular 15 unit/ Total Parenteral Nutrition/Amino Acids/Dextrose/ Fat Emulsion Intravenous 1,920 ml @ 80 mls/hr TPN CONT IV Last administered on 10/16/19at 22:06; Start 10/16/19 at 22:00; Stop 10/17/19 at 21:59; Status DC Meropenem 500 mg/ Sodium Chloride 50 ml @ 100 mls/hr Q6HRS IV Last administer ed on 10/24/19at 06:23; Start 10/16/19 at 18:00 Daptomycin 500 mg/ Sodium Chloride 50 ml @ 100 mls/hr Q24H IV Last administered on 10/23/19at 19:21; Start 10/16/19 at 19:00 Sodium Chloride 80 meq/Potassium Chloride 30 meq/ Potassium Acetate 30 meq/Magnesium Sulfate 14 meq/ Multivitamins 10 ml/Chromium/ Copper/Manganese/ Seleni/Zn 1 ml/ Insulin Human Regular 15 unit/ Total Parenteral Nutrition/Amino Acids/Dextrose/ Fat Emulsion Intravenous 1,920 ml @ 80 mls/hr TPN CONT IV Last administered on 10/17/19at 22:09; Start 10/17/19 at 22:00; Stop 10/18/19 at 21:59; Status DC Heparin Sodium (Porcine) 1000 unit/Sodium Chloride 1,001 ml @ 1,001 mls/hr 1X ONCE IRR ; Start 10/18/19 at 06:00; Stop 10/18/19 at 06:59; Status DC Propofol (Diprivan) 200 mg STK-MED ONCE IV ; Start 10/18/19 at 07:44; Stop 10/18/19 at 07:44; Status DC Lidocaine HCl (Lidocaine Pf 2% Vial) 5 ml STK-MED ONCE .ROUTE ; Start 10/18/19 at 07:44; Stop 10/18/19 at 07:44; Status DC Fentanyl Citrate (Fentanyl 2ml Vial) 100 mcg STK-MED ONCE .ROUTE ; Start 10/18/19 at 07:44; Stop 10/18/19 at 07:44; Status DC Rocuronium Claude (Zemuron) 100 mg STK-MED ONCE .ROUTE ; Start 10/18/19 at 07:44; Stop 10/18/19 at 07:44; Status DC Micafungin Sodium 100 mg/Dextrose 100 ml @ 100 mls/hr Q24H IV Last administere d on 10/24/19at 08:39; Start 10/18/19 at 08:30 Bupivacaine HCl/ Epinephrine Bitart (Sensorcain-Epi 0.5%-1:900486 Mpf) 30 ml STK-MED ONCE .ROUTE ; Start 10/18/19 at 08:34; Stop 10/18/19 at 08:35; Status DC Iohexol (Omnipaque 300 Mg/ml) 50 ml STK-MED ONCE .ROUTE Last administered on 10/18/19at 13:30; Start 10/18/19 at 08:35; Stop 10/18/19 at 08:35; Status DC Sodium Chloride 80 meq/Potassium Chloride 30 meq/ Potassium Acetate 30 meq/Magnesium Sulfate 14 meq/ Multivitamins 10 ml/Chromium/ Copper/Manganese/ Seleni/Zn 1 ml/ Insulin Human Regular 15 unit/ Total Parenteral Nutrition/Amino Acids/Dextrose/ Fat Emulsion Intravenous 1,920 ml @ 80 mls/hr TPN CONT IV Last administered on 10/19/19at 01:22; Start 10/18/19 at 22:00; Stop 10/19/19 at 21:59; Status DC Phenylephrine HCl (Brayden-Synephrine Inj) 10 mg STK-MED ONCE .ROUTE ; Start 10/18/19 at 10:15; Stop 10/18/19 at 10:15; Status DC Desflurane (Suprane) 90 ml STK-MED ONCE IH ; Start 10/18/19 at 10:18; Stop 10/18/19 at 10:19; Status DC Albumin Human 500 ml @ As Directed STK-MED ONCE IV ; Start 10/18/19 at 11:06; Stop 10/18/19 at 11:06; Status DC Vasopressin (Vasostrict) 20 unit STK-MED ONCE .ROUTE ; Start 10/18/19 at 12:23; Stop 10/18/19 at 12:23; Status DC Phenylephrine HCl (Brayden-Synephrine Inj) 10 mg STK-MED ONCE .ROUTE ; Start 10/18/19 at 13:33; Stop 10/18/19 at 13:33; Status DC Phenylephrine HCl (Brayden-Synephrine Inj) 10 mg STK-MED ONCE .ROUTE ; Start 10/18/19 at 13:33; Stop 10/18/19 at 13:33; Status DC Ondansetron HCl (Zofran) 4 mg STK-MED ONCE .ROUTE ; Start 10/18/19 at 13:33; Stop 10/18/19 at 13:33; Status DC Enoxaparin Sodium (Lovenox 40mg Syringe) 40 mg Q24H SQ Last administered on 10/24/19at 08:39; Start 10/19/19 at 08:00 Sodium Chloride (Normal Saline Flush) 3 ml QSHIFT PRN IV AFTER MEDS AND BLOOD DRAWS; Start 10/18/19 at 14:45 Naloxone HCl (Narcan) 0.4 mg PRN Q2MIN PRN IV SEE INSTRUCTIONS; Start 10/18/19 at 14:45 Sodium Chloride 1,000 ml @ 25 mls/hr Q24H IV Last administered on 10/22/19at 12:37; Start 10/18/19 at 14:33 Morphine Sulfate (Morphine Sulfate) 1 mg PRN Q1HR PRN IV PAIN; Start 10/18/19 at 14:45 Midazolam HCl 100 mg/Sodium Chloride 100 ml @ 1 mls/hr CONT PRN IV SEE I/O R ECORD Last administered on 10/21/19at 18:48; Start 10/18/19 at 14:45 Phenylephrine HCl (PHENYLEPHRINE in 0.9% NACL PF) 1 mg STK-MED ONCE IV ; Start 10/18/19 at 14:44; Stop 10/18/19 at 14:45; Status DC Ephedrine Sulfate (ePHEDrine PF IN SALINE SYRINGE) 50 mg STK-MED ONCE IV ; Start 10/18/19 at 14:45; Stop 10/18/19 at 14:45; Status DC Vasopressin 20 unit/Dextrose 101 ml @ 12 mls/hr CONT PRN IV SEE I/O RECORD Last administered on 10/23/19at 21:23; Start 10/18/19 at 15:30 Sodium Chloride 1,000 ml @ 1,000 mls/hr 1X ONCE IV Last administered on 10/18/19at 15:42; Start 10/18/19 at 15:45; Stop 10/18/19 at 16:44; Status DC Albumin Human 500 ml @ 125 mls/hr 1X ONCE IV ; Start 10/18/19 at 16:00; Stop 10/18/19 at 19:59; Status DC Albumin Human 500 ml @ 125 mls/hr PRN Q1HR PRN IV PER PROTOCOL; Start 10/18/19 at 15:45 Magnesium Sulfate 50 ml @ 25 mls/hr 1X ONCE IV Last administered on 10/18/19at 17:02; Start 10/18/19 at 16:30; Stop 10/18/19 at 18:29; Status DC Sodium Bicarbonate (Sodium Bicarb Adult 8.4% Syr) 50 meq STK-MED ONCE .ROUTE ; Start 10/18/19 at 16:20; Stop 10/18/19 at 16:20; Status DC Sodium Bicarbonate (Sodium Bicarb Adult 8.4% Syr) 100 meq 1X ONCE IV Last administered on 10/18/19at 17:07; Start 10/18/19 at 16:30; Stop 10/18/19 at 16:31; Status DC Sodium Bicarbonate 150 meq/Dextrose 1,150 ml @ 75 mls/hr 1X ONCE IV Last administered on 10/18/19at 20:02; Start 10/18/19 at 16:30; Stop 10/19/19 at 07:49; Status DC Sodium Chloride 80 meq/Potassium Chloride 30 meq/ Potassium Acetate 30 meq/Magnesium Sulfate 14 meq/ Multivitamins 10 ml/Chromium/ Copper/Manganese/ Seleni/Zn 1 ml/ Insulin Human Regular 15 unit/ Total Parenteral Nutrition/Amino Acids/Dextrose/ Fat Emulsion Intravenous 1,920 ml @ 80 mls/hr TPN CONT IV Last administered on 10/19/19at 23:05; Start 10/19/19 at 22:00; Stop 10/20/19 at 21:59; Status DC Sodium Chloride 100 meq/Potassium Chloride 30 meq/ Potassium Acetate 30 meq/Magnesium Sulfate 12 meq/ Multivitamins 10 ml/Chromium/ Copper/Manganese/ Seleni/Zn 1 ml/ Insulin Human Regular 15 unit/ Total Parenteral Nutrition/Amino Acids/Dextrose/ Fat Emulsion Intravenous 1,920 ml @ 80 mls/hr TPN CONT IV Last administered on 10/20/19at 21:52; Start 10/20/19 at 22:00; Stop 10/21/19 at 21:59; Status DC Sodium Chloride 100 meq/Potassium Chloride 30 meq/ Potassium Acetate 30 meq/Magnesium Sulfate 12 meq/ Multivitamins 10 ml/Chromium/ Copper/Manganese/ Seleni/Zn 1 ml/ Insulin Human Regular 15 unit/ Total Parenteral Nutrition/Amino Acids/Dextrose/ Fat Emulsion Intravenous 1,920 ml @ 80 mls/hr TPN CONT IV Las t administered on 10/21/19at 21:46; Start 10/21/19 at 22:00; Stop 10/22/19 at 21:59; Status DC Sodium Chloride 100 meq/Potassium Chloride 30 meq/ Potassium Acetate 30 meq/Magnesium Sulfate 12 meq/ Multivitamins 10 ml/Chromium/ Copper/Manganese/ Seleni/Zn 1 ml/ Insulin Human Regular 15 unit/ Total Parenteral Nutrition/Amino Acids/Dextrose/ Fat Emulsion Intravenous 1,800 ml @ 75 mls/hr TPN CONT IV Last administered on 10/22/19at 22:04; Start 10/22/19 at 22:00; Stop 10/23/19 at 21:59; Status DC Fentanyl Citrate 55 ml @ 0 mls/hr CONT PRN IV SEE COMMENTS Last administered on 10/23/19at 17:13; Start 10/22/19 at 13:00 Sodium Chloride 100 meq/Potassium Chloride 30 meq/ Potassium Acetate 30 meq/Magnesium Sulfate 12 meq/ Multivitamins 10 ml/Chromium/ Copper/Manganese/ Seleni/Zn 1 ml/ Insulin Human Regular 15 unit/ Total Parenteral Nutrition/Amino Acids/Dextrose/ Fat Emulsion Intravenous 1,680 ml @ 70 mls/hr TPN CONT IV Last administered on 10/23/19at 21:23; Start 10/23/19 at 22:00; Stop 10/24/19 at 21:59 Active Scripts Active Reported Bisoprolol Fumarate 5 Mg Tablet 10 Mg PO DAILY Vitals/I & O Vital Sign - Last 24 Hours 10/23/19 10/23/19 10/23/19 10/23/19 10:00 11:00 11:28 12:00 Pulse 92 90 Resp 13 13 B/P (MAP) 95/51 (66) 100/52 (68) Pulse Ox 98 100 99 O2 Delivery Ventilator Ventilator Ventilator Mechanical Ventilator 10/23/19 10/23/19 10/23/19 10/23/19 12:00 13:00 14:00 15:00 Temp 98.2 98.2 Pulse 82 84 88 80 Resp 13 13 12 22 B/P (MAP) 102/52 (69) 97/49 (65) 102/55 (71) 95/54 (68) Pulse Ox 100 100 100 100 O2 Delivery Ventilator Ventilator Ventilator Ventilator 10/23/19 10/23/19 10/23/19 10/23/19 15:13 16:00 16:00 17:00 Temp 98.7 98.7 Pulse 84 9 Resp 21 19 B/P (MAP) 117/74 (88) 97/74 (82) Pulse Ox 100 100 94 O2 Delivery Ventilator Ventilator Mechanical Ventilator Ventilator 10/23/19 10/23/19 10/23/19 10/23/19 17:13 17:52 18:00 19:00 Pulse 98 89 Resp 20 26 B/P (MAP) 97/61 (73) 95/58 (70) Pulse Ox 97 100 98 98 O2 Delivery Ventilator Ventilator Ventilator Ventilator 10/23/19 10/23/19 10/23/19 10/23/19 20:00 20:00 20:40 20:43 Temp 99.8 99.8 Pulse 79 Resp 14 B/P (MAP) 107/68 (81) Pulse Ox 98 100 100 O2 Delivery Mechanical Ventilator Ventilator Ventilator Ventilator 10/23/19 10/23/19 10/23/19 10/23/19 21:00 22:00 23:00 23:52 Pulse 83 85 82 Resp 23 15 16 B/P (MAP) 105/59 (74) 93/58 (70) 104/60 (75) Pulse Ox 100 100 100 100 O2 Delivery Ventilator Ventilator Ventilator Ventilator 10/24/19 10/24/19 10/24/19 10/24/19 00:00 00:00 01:00 02:00 Temp 99.0 99.0 Pulse 101 85 79 Resp 22 22 27 B/P (MAP) 92/54 (67) 94/51 (65) 96/56 (69) Pulse Ox 100 100 100 O2 Delivery Mechanical Ventilator Ventilator Ventilator Ventilator 10/24/19 10/24/19 10/24/19 10/24/19 03:00 03:44 04:00 04:00 Temp 98.8 98.8 Pulse 93 90 Resp 22 B/P (MAP) 101/63 (76) 105/67 (80) Pulse Ox 100 100 100 O2 Delivery Ventilator Ventilator Mechanical Ventilator Ventilator 10/24/19 10/24/19 10/24/19 10/24/19 05:00 06:00 07:00 08:00 Pulse 112 80 76 Resp 22 B/P (MAP) 106/57 (73) 126/76 (93) Pulse Ox 100 100 100 O2 Delivery Ventilator Ventilator Ventilator Mechanical Ventilator 10/24/19 08:07 Pulse Ox 100 O2 Delivery Ventilator Intake and Output 10/23/19 10/23/19 10/24/19 15:00 23:00 07:00 Intake Total 150 ml 1348 ml 1477 ml Output Total 1125 ml 785 ml 1220 ml Balance -975 ml 563 ml 257 ml Justicifation of Admission Dx: Justifications for Admission: Justification of Admission Dx: Yes ABI AHN MD Oct 24, 2019 09:38
--- NOTE | 2019-10-24 11:41 | NUR ---
SS following up with discharge planning. SS reviewed pt chart and discussed with pt RN. No new changes at this time. Pt remains on the vent at this time. Pt continues on TPN, IV Meropenem, Micafungin, and Daptomycin. Pt continues to have all drains and tubes to include three KAYLIN drains, two Mook drains, and chest tube. Pt remains Full Code. SS will continue to follow for discharge planning.
[2019-10-24] MEDS: TPN PER PHARMACY MC PRN (12:17)
--- NOTE | 2019-10-24 12:27 | PDOC ---
SURGICAL PROGRESS NOTE Subjective in bed, tolerating TF + stool yesterday Vital Signs Vital Signs Date Time Temp Pulse Resp B/P (MAP) Pulse Ox O2 Delivery O2 Flow Rate FiO2 10/24/19 11:34 99 Ventilator 10/24/19 11:00 74 22 136/81 (99) 10/24/19 08:00 97.8 97.8 I&O Intake and Output 10/24/19 07:00 Intake Total 2975 ml Output Total 3130 ml Balance -155 ml IV Total 2305 ml Tube Feeding 420 ml Other 250 ml Output Urine Total 1890 ml Chest Tube Drainage Total 100 ml Drainage Total 1140 ml PATIENT HAS A ROSARIO: Yes General: Cooperative, No acute distress Abdomen: Soft, Other (drains in place) Labs Laboratory Tests Test 10/22/19 18:09 10/23/19 00:20 10/23/19 05:57 10/23/19 06:00 Glucose (Fingerstick) 127 mg/dL (70-99) 126 mg/dL (70-99) 120 mg/dL (70-99) Sodium Level 134 mmol/L (136-145) Potassium Level 4.7 mmol/L (3.5-5.1) Chloride Level 102 mmol/L (98-107) Carbon Dioxide Level 29 mmol/L (21-32) Anion Gap 3 (6-14) Blood Urea Nitrogen 21 mg/dL (7-20) Creatinine 0.6 mg/dL (0.6-1.0) Estimated GFR (Cockcroft-Gault) 106.3 Glucose Level 126 mg/dL (70-99) Calcium Level 8.8 mg/dL (8.5-10.1) Test 10/23/19 12:49 10/23/19 18:06 10/23/19 23:53 10/24/19 06:15 Glucose (Fingerstick) 169 mg/dL (70-99) 132 mg/dL (70-99) 147 mg/dL (70-99) White Blood Count 18.0 x10^3/uL (4.0-11.0) Red Blood Count 2.62 x10^6/uL (3.50-5.40) Hemoglobin 7.7 g/dL (12.0-15.5) Hematocrit 23.4 % (36.0-47.0) Mean Corpuscular Volume 89 fL (79-100) Mean Corpuscular Hemoglobin 30 pg (25-35) Mean Corpuscular Hemoglobin Concent 33 g/dL (31-37) Red Cell Distribution Width 14.5 % (11.5-14.5) Platelet Count 375 x10^3/uL (140-400) Neutrophils (%) (Auto) 86 % (31-73) Lymphocytes (%) (Auto) 7 % (24-48) Monocytes (%) (Auto) 6 % (0-9) Eosinophils (%) (Auto) 1 % (0-3) Basophils (%) (Auto) 0 % (0-3) Neutrophils # (Auto) 15.5 x10^3/uL (1.8-7.7) Lymphocytes # (Auto) 1.2 x10^3/uL (1.0-4.8) Monocytes # (Auto) 1.0 x10^3/uL (0.0-1.1) Eosinophils # (Auto) 0.2 x10^3/uL (0.0-0.7) Basophils # (Auto) 0.0 x10^3/uL (0.0-0.2) Sodium Level 135 mmol/L (136-145) Potassium Level 4.5 mmol/L (3.5-5.1) Chloride Level 103 mmol/L (98-107) Carbon Dioxide Level 29 mmol/L (21-32) Anion Gap 3 (6-14) Blood Urea Nitrogen 19 mg/dL (7-20) Creatinine 0.5 mg/dL (0.6-1.0) Estimated GFR (Cockcroft-Gault) 131.1 Glucose Level 155 mg/dL (70-99) Calcium Level 9.2 mg/dL (8.5-10.1) Phosphorus Level 3.4 mg/dL (2.6-4.7) Magnesium Level 1.8 mg/dL (1.8-2.4) Triglycerides Level 207 mg/dL (0-150) Test 10/24/19 06:21 10/24/19 11:56 Glucose (Fingerstick) 151 mg/dL (70-99) 154 mg/dL (70-99) Laboratory Tests Test 10/23/19 12:49 10/23/19 18:06 10/23/19 23:53 10/24/19 06:15 Glucose (Fingerstick) 169 mg/dL (70-99) 132 mg/dL (70-99) 147 mg/dL (70-99) White Blood Count 18.0 x10^3/uL (4.0-11.0) Red Blood Count 2.62 x10^6/uL (3.50-5.40) Hemoglobin 7.7 g/dL (12.0-15.5) Hematocrit 23.4 % (36.0-47.0) Mean Corpuscular Volume 89 fL (79-100) Mean Corpuscular Hemoglobin 30 pg (25-35) Mean Corpuscular Hemoglobin Concent 33 g/dL (31-37) Red Cell Distribution Width 14.5 % (11.5-14.5) Platelet Count 375 x10^3/uL (140-400) Neutrophils (%) (Auto) 86 % (31-73) Lymphocytes (%) (Auto) 7 % (24-48) Monocytes (%) (Auto) 6 % (0-9) Eosinophils (%) (Auto) 1 % (0-3) Basophils (%) (Auto) 0 % (0-3) Neutrophils # (Auto) 15.5 x10^3/uL (1.8-7.7) Lymphocytes # (Auto) 1.2 x10^3/uL (1.0-4.8) Monocytes # (Auto) 1.0 x10^3/uL (0.0-1.1) Eosinophils # (Auto) 0.2 x10^3/uL (0.0-0.7) Basophils # (Auto) 0.0 x10^3/uL (0.0-0.2) Sodium Level 135 mmol/L (136-145) Potassium Level 4.5 mmol/L (3.5-5.1) Chloride Level 103 mmol/L (98-107) Carbon Dioxide Level 29 mmol/L (21-32) Anion Gap 3 (6-14) Blood Urea Nitrogen 19 mg/dL (7-20) Creatinine 0.5 mg/dL (0.6-1.0) Estimated GFR (Cockcroft-Gault) 131.1 Glucose Level 155 mg/dL (70-99) Calcium Level 9.2 mg/dL (8.5-10.1) Phosphorus Level 3.4 mg/dL (2.6-4.7) Magnesium Level 1.8 mg/dL (1.8-2.4) Triglycerides Level 207 mg/dL (0-150) Test 10/24/19 06:21 10/24/19 11:56 Glucose (Fingerstick) 151 mg/dL (70-99) 154 mg/dL (70-99) Problem List Problems Medical Problems: (1) Acute pancreatitis Status: Acute (2) Cholelithiasis Status: Acute Assessment/Plan will begin increasing TFs Justicifation of Admission Dx: Justifications for Admission: Justification of Admission Dx: Yes 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 ADMITTING OFFICER Oct 24, 2019 12:27
--- NOTE | 2019-10-24 12:57 | PDOC ---
Objective: Objective: D/w nurse - stooled yesterday, otherwise stable. Note plans to increase tube feeds. Vital Signs: Vital Signs Date Time Temp Pulse Resp B/P (MAP) Pulse Ox O2 Delivery O2 Flow Rate FiO2 10/24/19 11:34 99 Ventilator 10/24/19 11:00 74 22 136/81 (99) 10/24/19 08:00 97.8 97.8 Labs: Laboratory Tests Test 10/23/19 18:06 10/23/19 23:53 10/24/19 06:21 10/24/19 11:56 Glucose (Fingerstick) 132 mg/dL (70-99) 147 mg/dL (70-99) 151 mg/dL (70-99) 154 mg/dL (70-99) Please see EMR for additional labs - unable to include in note at this time. PE: GEN: intubated LUNGS: vent ABD: drains including NG w/ bilious fluid NEURO/PSYCH: sedated A/P: Severe gallstone pancreatitis s/p subtotal cholecystectomy, gastrojejunostomy placement, pancreatic necrosectomy -- Seen this morning when [employer] unavailable Continue support per GI. Justicifation of Admission Dx: Justifications for Admission: Justification of Admission Dx: Yes CYNDEE FALCON Oct 24, 2019 12:57
--- NOTE | 2019-10-24 17:06 | PATHOLOGY ---
[facility] Accession Number: [id number] . 01 Material submitted: . PART A: pancreas - PANCREATIC NECROSECTOMY PART B: gallbladder - GALLBLADDER AND CONTENTS . 01 Clinical history: . Cholecystitis, cholelithiasis, pancreatitis, sepsis . 02 Diagnosis: A. Pancreatic necrosectomy: - Consistent with acute necrotizing and focal chronic pancreatitis. See comment. . B. Gallbladder, open cholecystectomy: - Cholelithiasis. - Chronic and focal mild acute cholecystitis. (JPM:jerardo; 10/24/2019) S 10/24/2019 1432 Local . 02 Comment: Section of the pancreatic necrosectomy reveal segments of necrotic tissue showing extensive fat necrosis with focal hemorrhage and acute inflammation. There are also a few segments of reactive fibrous tissue showing chronic inflammation. There is no recognizable pancreatic parenchyma. The findings are consistent with an acute necrotizing and focal chronic pancreatitis. There is no evidence of malignancy. (JPM:jerardo; 10/24/2019) . 02 Electronically signed: . Sascha Gomez MD, Pathologist NPI- [id number] . 01 Gross description: . A. The specimen is received in formalin, labeled "Marisel Augustin, pancreatic necrosectomy". Received is a 20.2 x 17.8 x 4.7 cm aggregate of red-brown friable material admixed with blood coagulum, pale gonzalez possible pancreatic tissue, and bright yellow lobulated tissue. Sectioning through the possible pancreatic tissue reveals pale-gonzalez, friable to necrotic cut surfaces. The specimen is submitted representatively in cassettes A1 through A4. . B. The specimen is received in formalin, labeled "Marisel Augustin, gallbladder and contents". Received is a previously opened gallbladder measuring 5.5 x 4.0 x 2.8 cm in greatest dimensions displaying a harvey-gonzalez serosal surface. The gallbladder neck and proximal margin is not discernible grossly. Opening the specimen reveals a velvety, light gonzalez to necrotic-appearing mucosa with a gallbladder wall thickness of 0.1 cm. Calculi are present displaying a black and nodular appearance, and no masses or lesions are noted grossly. The specimen is submitted representatively in cassette B1. (CAA; 10/20/2019) QAC/QAC 10/24/2019 1429 Local . 02 Pathologist provided ICD-10: K85.91, K80.12 . 02 CPT . 777989, [id number] Specimen Comment: A courtesy copy of this report has been sent to [phone], [phone] Specimen Comment: [id number], Specimen Comment: Report sent to ,DR KIRBY / DR BOWEN Performed at: 01 [facility] [address], [place] [id number] MD Ryan Martinez MD Phone: [phone] Performed at: 02 [facility] [address] [place], [place] [id number] MD Sascha Gomez MD Phone: [phone]
[2019-10-24] MEDS: VASOPRESSIN 20 UNIT in IV DEXTROSE 5% 100ML 100 ML IV PRN (17:27)
--- NOTE | 2019-10-24 17:37 | NUR ---
Pharmacy Vancomycin Dosing Note S:Consulted to monitor and dose vancomycin started . O:SCOTT CUELLAR is a 48 year old F with . Height: 5 feet, 8 inches Weight: 103.868468 kg Welch Body Weight: Adjusted Body Weight: Dosing Weight: Other Antibiotics: 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, 8 inches Weight: 103.621501 kg Current diet: NPO LABS: Sodium: 135 Potassium: 4.5 Chloride: 103 Calcium: 9.2 Corrected Calcium: 11.68 Magnesium: 1.8 CO2: 29 SCr: 0.6 Glucose: 151 Albumin: 0.9 AST: 28 ALT: 68 TPN FORMULA: TPN TYPE: Central Continuous AMINO ACIDS: 80 gm DEXTROSE: 250 gm LIPIDS: 20 gm SODIUM CHLORIDE: 110 mEq SODIUM ACETATE: - mEq SODIUM PHOSPHATE: - mmol POTASSIUM CHLORIDE: 30 mEq POTASSIUM ACETATE: 30 mEq POTASSIUM PHOSPHATE: - mmol MAGNESIUM: 15 mEq CALCIUM: - mEq INSULIN: 15 units MULTIPLE VITAMIN: 10 ml TRACE ELEMENTS: 1 ml ml(s) TPN PLAN: increase NACL TO 110 MEQ AND MAGSO4 TO 15 MEQ R: Continue TPN AT 70 ML/HR Will monitor electrolytes, glucose, and tolerance to TPN. KRISTIAN APODACA RPH, 10/24/19 [id number] LABS: Last BUN: Last Creatinine: 0.6 Creatinine Clearance: mL/min Last WBC: Last Procalcitonin: Tmax (past 24 hours): Microbiology: I/O: Drug Levels: Last level: on at Last dose given at Vancomycin Dosing: Loading Dose: x1 Dosing Weight: Target Trough: A: Based on: [] P: 1. [g RX.ACTION] Vancomycin IV 2. Follow up level on at 3. Pharmacy will continue to monitor, follow and adjust therapy as needed. KRISTIAN APODACA RPH, 10/24/19 [id number]
[2019-10-24] MEDS: DAPTOmycin (GENERIC) IVPB 500 MG in IV NORMAL SALINE 50ML 50 ML IV SCH (21:47)
[2019-10-24] MEDS ORDERED: [UNRECOGNIZED DRUG - OTHER] IV SCH ×10 (22:00)
[2019-10-24] MEDS ORDERED: DEXTROSE 70% IV SCH ×10 (22:00)
[2019-10-24] MEDS ORDERED: TOTAL PARENTERAL NUTRITION IV SCH ×10 (22:00)
[2019-10-24] MEDS ORDERED: AMINO ACID IV SCH ×10 (22:00)
[2019-10-24] MEDS: fentaNYL HIGH DOSE PCA 55 ML IV PRN (23:55)
[2019-10-25] VITALS (24 sets, daily range): BP systolic 93–144; BP diastolic 51–99
[2019-10-25] MEDS: IPRATRPIUM/ALBUTEROL 0.5/2.5MG 3 ML NEBU. NEB SCH ×7 (03:58→23:43)
[2019-10-25] MEDS: VASOPRESSIN 20 UNIT in IV DEXTROSE 5% 100ML 100 ML IV PRN (04:17)
[2019-10-25] MEDS: MEROPENEM 500 MG in IV NORMAL SALINE 50ML 50 ML IV SCH ×3 (05:34→17:51)
[2019-10-25] MEDS: INSULIN LISPRO 300 UNITS/3 ML VIAL. SQ SCH ×4 (05:37→17:51)
[2019-10-25 05:46] LABS: BASO % 0 % (0-3); EOS # 0.2 x10^3/uL (0.0-0.7); EOS % 1 % (0-3); HEMATOCRIT 22.5 % (36.0-47.0); HEMOGLOBIN 7.5 g/dL (12.0-15.5); LYMPH % 7 % (24-48); MEAN CORPUSCULAR HEMOGLOBIN 30 pg (25-35); MEAN CORPUSCULAR HGB CONC 33 g/dL (31-37); MEAN CORPUSCULAR VOLUME 89 fL (79-100); MONO # 0.9 x10^3/uL (0.0-1.1); MONO % 6 % (0-9); NEUT # 12.9 x10^3/uL (1.8-7.7); NEUT % 86 % (31-73); PLATELET COUNT 414 x10^3/uL (140-400); RED BLOOD COUNT 2.54 x10^6/uL (3.50-5.40); RED CELL DISTRIBUTION WIDTH 14.8 % (11.5-14.5)
--- NOTE | 2019-10-25 07:15 | PDOC ---
Infectious Disease Note Subjective Subjective Sedated Remains on ventilator support, FiO2 40% 5 PEEP TPN Still on vasopressin, off levophed ROS ROS unable to obtain Vital Sign Vital Signs Vital Signs Date Time Temp Pulse Resp B/P (MAP) Pulse Ox O2 Delivery O2 Flow Rate FiO2 10/25/19 06:00 79 24 134/92 (106) 100 Ventilator 10/25/19 04:00 98.1 98.1 10/25/19 00:25 40.0 Physical Exam PHYSICAL EXAM GENERAL: Alert but not responsive. ill appearing HEENT: Pupils equal, oral cavity dry. + NGT NECK: Tracheostomy LUNGS: Diminished aeration bases, CT on left HEART: S1, S2, regular w/ PVCs ABDOMEN: Sightly Distended, bowel sounds hypoactive, soft, goyal x 2, 3 KAYLIN drains, G-J tube and + wound vac : Lind in place EXTREMITIES: Generalized edema, no cyanosis. SCDs & Podus boots bilaterally SKIN: warm touch. No signs of rash. LUE-PICC without signs of complications LUE art-line out, mottling left forearm about ole art-line site is improving, some better. RP palpable, cap refill brisk. NEURO: alert but not responsive - ? tracking Labs Lab Laboratory Tests Test 10/24/19 11:56 10/24/19 16:51 10/25/19 00:00 10/25/19 05:20 Glucose (Fingerstick) 154 mg/dL (70-99) 153 mg/dL (70-99) 123 mg/dL (70-99) White Blood Count 15.0 x10^3/uL (4.0-11.0) Red Blood Count 2.54 x10^6/uL (3.50-5.40) Hemoglobin 7.5 g/dL (12.0-15.5) Hematocrit 22.5 % (36.0-47.0) Mean Corpuscular Volume 89 fL (79-100) Mean Corpuscular Hemoglobin 30 pg (25-35) Mean Corpuscular Hemoglobin Concent 33 g/dL (31-37) Red Cell Distribution Width 14.8 % (11.5-14.5) Platelet Count 414 x10^3/uL (140-400) Neutrophils (%) (Auto) 86 % (31-73) Lymphocytes (%) (Auto) 7 % (24-48) Monocytes (%) (Auto) 6 % (0-9) Eosinophils (%) (Auto) 1 % (0-3) Basophils (%) (Auto) 0 % (0-3) Neutrophils # (Auto) 12.9 x10^3/uL (1.8-7.7) Lymphocytes # (Auto) 1.0 x10^3/uL (1.0-4.8) Monocytes # (Auto) 0.9 x10^3/uL (0.0-1.1) Eosinophils # (Auto) 0.2 x10^3/uL (0.0-0.7) Basophils # (Auto) 0.0 x10^3/uL (0.0-0.2) Test 10/25/19 05:32 Glucose (Fingerstick) 159 mg/dL (70-99) Micro 09/24 GRAM STAIN Final Final GRAM NEGATIVE RODS:MODERATE SQUAMOUS EPI CELL:NOT APPLICABLE PMN (WBCs):RARE YEAST:MODERATE Unless otherwise specified, Testing Performed by: [address] [address] For Inquires, the Physician may contact the Microbiology department at [phone] ANAEROBIC-AEROBIC CULTURE Preliminary Preliminary MANY GRAM NEGATIVE RODS on 09/27/19 at 1158 FINAL ID= [PSEUDOMONAS AERUGINOSA] PSEUDOMONAS AERUGINOSA ANTIMICROBIAL SUSCEPTIBILITY Preliminary Comment NEG ALEXANDRA 56 PSEUDOMONAS AERUGINOSA ANTIBIOTIC RESULT INTERPRETATION AMIKACIN <=16 S AZTREONAM >16 R CEFTAZIDIME >16 R CIPROFLOXACIN <=0.25 S CEFEPIME 16 I CEFTAZIDIME/AVIBACTAM <=4 S GENTAMICIN <=2 S CONTINUED ON NEXT PAGE RUN DATE: 09/29/19 [facility] *LIVE* PAGE 2 RUN TIME: 1016 Specimen Inquiry SPEC: [id number] PATIENT: SCOTT CUELLAR [id number] (Continued) Procedure Result ANTIMICROBIAL SUSCEPTIBILITY Preliminary (continued) LEVOFLOXACIN <=0.5 S MEROPENEM <=1 S PIPERACILLIN/TAZOBACTAM 64 S TOBRAMYCIN <=2 S Unless otherwise specified, Testing Performed by: [address] [address] For Inquires, the Physician may contact the Microbiology department at [phone] CT Scan 09/23 IMPRESSION: 1. Removal of the percutaneous pigtail drainage catheters since the prior exam. Sequela of pancreatitis with extensive pseudocysts again demonstrated, the right-sided collections are slightly larger since the prior exam, the left-sided collections are stable. See above. 2. Moderate to large left pleural effusion with atelectasis and collapse of most of the left lower lobe, stable. Small right pleural effusion is stable. 3. Gallstone. Objective Assessment Patient with prolonged hospitalization more than 3 months Multiple medical problems Multiple surgical procedures Off Versed 10/21 S/P Exp. Lap, SAURABH, subtotal cholecystectomy with cholangiogram, G-J tube placement & pancreatic necrosectomy on October 17 YEAST/PSA Leukocytosis - leukomoid reaction likely postoperative - improving Fever intermittently source likely GI Acute gallstone pancreatitis with persistent necrosis -CT a/p 07/27. Increased ascites. 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 status post KAYLIN drain placement; C. parapsilosis. s/p drain 08/23 + yeast & high amylase; s/p additional drain on 08/25. Drains removed. -08/23. fluid devyn parapsilosis fluid, amylase high - 09/23 showed multiple pseudocysts, slight larger on the right. s/p drains x 3, 09/24. + PSAE (MDRO-R Cefepime, Zosyn ALEXANDRA < 64) and yeast, -09/24 s/p drain replacement x 3; fluid cult PSAE (MDRO), yeast; treated Ascites s/p paracentesis 08/02 & 08/23. C. parapsilosis Cholelithiasis with thickening of the gallbladder wall. JUANA, Hyperkalemia, Metabolic acidosis off dialysis Acute hypoxic resp failure. trach/vent. sputum 09/30 + PSAE (I merrem) Pleural effusions s/p left thoracentesis, 08/29. no culture. s/p left chest tube, 10/02 no growth Hypocalcemia Prediabetes HTN Anemia s/p RBCs Plan Plan of Care PSA from 10/17 I to Meropenem but WBC improving so will try to hold changing abx to Cipro and or Avycaz to try and save potential abx options continue merrem and micafungin but d/c Dapto Monitor Mental status ? coming off sedation Monitor labs f/u cultures/susceptibilities still pending wound care /drain management as directed Monitor left forearm Contact isolation for CRE/MDRO Critically ill D/w nursing WILLY BARAKAT MD Oct 25, 2019 07:14
[2019-10-25] MEDS: ACETYLCYSTEINE 20% for RESP TX 600 MG/3 ML. NEB SCH ×2 (08:00→20:27)
[2019-10-25] MEDS: PANTOPRAZOLE IV PUSH 40 MG VIAL. IVP SCH (08:32)
[2019-10-25] MEDS: MICAFUNGIN 100 MG in IV DEXTROSE 5% 100ML 100 ML IV SCH (08:33)
[2019-10-25] MEDS: ENOXAPARIN 40 MG/0.4 ML SYRINGE. SQ SCH (08:33)
--- NOTE | 2019-10-25 08:43 | PDOC ---
PULMONARY PROGRESS NOTES Subjective On assist control ventilation sedated Vitals Vital Signs Date Time Temp Pulse Resp B/P (MAP) Pulse Ox O2 Delivery O2 Flow Rate FiO2 10/25/19 07:00 91 19 144/99 (114) 100 Ventilator 10/25/19 04:00 98.1 98.1 10/25/19 00:25 40.0 Comments trach/sedated on vent Lungs: Crackles Cardiovascular: S1, S2 Abdomen: Soft, Non-tender, Other (multiple KAYLIN drains ) Extremities: Other (+1 BLE edema) Skin: Warm Labs Laboratory Tests Test 10/23/19 12:49 10/23/19 18:06 10/23/19 23:53 10/24/19 06:15 Glucose (Fingerstick) 169 mg/dL (70-99) 132 mg/dL (70-99) 147 mg/dL (70-99) White Blood Count 18.0 x10^3/uL (4.0-11.0) Red Blood Count 2.62 x10^6/uL (3.50-5.40) Hemoglobin 7.7 g/dL (12.0-15.5) Hematocrit 23.4 % (36.0-47.0) Mean Corpuscular Volume 89 fL (79-100) Mean Corpuscular Hemoglobin 30 pg (25-35) Mean Corpuscular Hemoglobin Concent 33 g/dL (31-37) Red Cell Distribution Width 14.5 % (11.5-14.5) Platelet Count 375 x10^3/uL (140-400) Neutrophils (%) (Auto) 86 % (31-73) Lymphocytes (%) (Auto) 7 % (24-48) Monocytes (%) (Auto) 6 % (0-9) Eosinophils (%) (Auto) 1 % (0-3) Basophils (%) (Auto) 0 % (0-3) Neutrophils # (Auto) 15.5 x10^3/uL (1.8-7.7) Lymphocytes # (Auto) 1.2 x10^3/uL (1.0-4.8) Monocytes # (Auto) 1.0 x10^3/uL (0.0-1.1) Eosinophils # (Auto) 0.2 x10^3/uL (0.0-0.7) Basophils # (Auto) 0.0 x10^3/uL (0.0-0.2) Sodium Level 135 mmol/L (136-145) Potassium Level 4.5 mmol/L (3.5-5.1) Chloride Level 103 mmol/L (98-107) Carbon Dioxide Level 29 mmol/L (21-32) Anion Gap 3 (6-14) Blood Urea Nitrogen 19 mg/dL (7-20) Creatinine 0.5 mg/dL (0.6-1.0) Estimated GFR (Cockcroft-Gault) 131.1 Glucose Level 155 mg/dL (70-99) Calcium Level 9.2 mg/dL (8.5-10.1) Phosphorus Level 3.4 mg/dL (2.6-4.7) Magnesium Level 1.8 mg/dL (1.8-2.4) Triglycerides Level 207 mg/dL (0-150) Test 10/24/19 06:21 10/24/19 11:56 10/24/19 16:51 10/25/19 00:00 Glucose (Fingerstick) 151 mg/dL (70-99) 154 mg/dL (70-99) 153 mg/dL (70-99) 123 mg/dL (70-99) Test 10/25/19 05:20 10/25/19 05:32 White Blood Count 15.0 x10^3/uL (4.0-11.0) Red Blood Count 2.54 x10^6/uL (3.50-5.40) Hemoglobin 7.5 g/dL (12.0-15.5) Hematocrit 22.5 % (36.0-47.0) Mean Corpuscular Volume 89 fL (79-100) Mean Corpuscular Hemoglobin 30 pg (25-35) Mean Corpuscular Hemoglobin Concent 33 g/dL (31-37) Red Cell Distribution Width 14.8 % (11.5-14.5) Platelet Count 414 x10^3/uL (140-400) Neutrophils (%) (Auto) 86 % (31-73) Lymphocytes (%) (Auto) 7 % (24-48) Monocytes (%) (Auto) 6 % (0-9) Eosinophils (%) (Auto) 1 % (0-3) Basophils (%) (Auto) 0 % (0-3) Neutrophils # (Auto) 12.9 x10^3/uL (1.8-7.7) Lymphocytes # (Auto) 1.0 x10^3/uL (1.0-4.8) Monocytes # (Auto) 0.9 x10^3/uL (0.0-1.1) Eosinophils # (Auto) 0.2 x10^3/uL (0.0-0.7) Basophils # (Auto) 0.0 x10^3/uL (0.0-0.2) Glucose (Fingerstick) 159 mg/dL (70-99) Laboratory Tests Test 10/24/19 11:56 10/24/19 16:51 10/25/19 00:00 10/25/19 05:20 Glucose (Fingerstick) 154 mg/dL (70-99) 153 mg/dL (70-99) 123 mg/dL (70-99) White Blood Count 15.0 x10^3/uL (4.0-11.0) Red Blood Count 2.54 x10^6/uL (3.50-5.40) Hemoglobin 7.5 g/dL (12.0-15.5) Hematocrit 22.5 % (36.0-47.0) Mean Corpuscular Volume 89 fL (79-100) Mean Corpuscular Hemoglobin 30 pg (25-35) Mean Corpuscular Hemoglobin Concent 33 g/dL (31-37) Red Cell Distribution Width 14.8 % (11.5-14.5) Platelet Count 414 x10^3/uL (140-400) Neutrophils (%) (Auto) 86 % (31-73) Lymphocytes (%) (Auto) 7 % (24-48) Monocytes (%) (Auto) 6 % (0-9) Eosinophils (%) (Auto) 1 % (0-3) Basophils (%) (Auto) 0 % (0-3) Neutrophils # (Auto) 12.9 x10^3/uL (1.8-7.7) Lymphocytes # (Auto) 1.0 x10^3/uL (1.0-4.8) Monocytes # (Auto) 0.9 x10^3/uL (0.0-1.1) Eosinophils # (Auto) 0.2 x10^3/uL (0.0-0.7) Basophils # (Auto) 0.0 x10^3/uL (0.0-0.2) Test 10/25/19 05:32 Glucose (Fingerstick) 159 mg/dL (70-99) Medications Active Scripts Medications Dose Route/Sig Max Daily Dose Days Date Category Bisoprolol Fumarate 5 Mg Tablet 10 Mg PO DAILY 07/04/19 Reported Comments CXR 10/16/19 IMPRESSION: No significant interval change compared to 10/13/2019. ct abdomen /pelvis 09/23 1. Removal of the percutaneous pigtail drainage catheters since the prior exam. Sequela of pancreatitis with extensive pseudocysts again demonstrated, the right-sided collections are slightly larger since the prior exam, the left-sided collections are stable. See above. 2. Moderate to large left pleural effusion with atelectasis and collapse of most of the left lower lobe, stable. Small right pleural effusion is stable. 3. Gallstone. ct chest 10/02 reviewed GRAM NEG COCCOBACILLI:MANY SQUAMOUS EPI CELL:RARE PMN (WBCs):FEW Unless otherwise specified, Testing Performed by: [address] [address] For Inquires, the Physician may contact the Microbiology department at [phone] RESPIRATORY CULTURE Final Final MANY GRAM NEGATIVE RODS on 10/03/19 at 1107 FINAL ID= [PSEUDOMONAS AERUGINOSA] MICRO CHARGES PSEUDOMONAS AERUGINOSA ANTIMICROBIAL SUSCEPTIBILITY Final Comment NEG ALEXANDRA 56 PSEUDOMONAS AERUGINOSA ANTIBIOTIC RESULT INTERPRETATION AMIKACIN <=16 S AZTREONAM <=4 S CEFTAZIDIME <=1 S CIPROFLOXACIN <=0.25 S CEFEPIME <=2 S CEFTAZIDIME/AVIBACTAM <=4 S GENTAMICIN <=2 S LEVOFLOXACIN <=0.5 S Impression . IMPRESSION: 1. Acute hypoxemic respiratory failure secondary to ARDS status post trach, developed anemia /, blood drainage from RLQ abdomen drain site, and surrounding firmness / developed septic shock / from abdomen source, required levo /7 s/p 3 new drains / with brown color drainage, 2. Gallstone pancreatitis, now with ongoing bleeding from prior drain. Anemic. s/p Tx multiple units over several days 3. septic shock/sepsis, recurrent 09/24, source abdomen. , 4. Acute kidney injury-, Off HD--renal function decling. suspect JUANA on CKD due to hypotension , improved now 5. Acute gallstone pancreatitis. 6. Hypoalbuminemia. 7. Moderate persistent effusions, s/p left thora 08/29, reaccumulation of left effusion. O2 requirement not changed. 8. Fever- ,hypotension. suspect recurrent sepsis/ likely pancreatic source. Per ID, per surgery-- 9. Chronic anemia-- ongoing / s/p PRBC 10. Covid 19 testing negative 11. Moderate to large ascites-S/P paracentisis 12.S/P paracentisis with 4 liters removed on 08/03/19 13. S/P IR drain placement on 08/26/2019, removal, re inserted 09/24 14. Depression/Anxiety 15. Increase effusion, ? loculated/ s/p chest tube.. drainage slowing down. 10/17 S/P Exploratory laparotomy, lysis of adhesions, subtotal cholecystectomy with cholangiogram, gastrojejunostomy tube placement, pancreatic necrosectomy leukocytosis- improving Plan . Patient slightly more awake today following some commands Will discontinue sedation and try pressure support as tolerated S/P Exploratory laparotomy, lysis of adhesions, subtotal cholecystectomy with cholangiogram, gastrojejunostomy tube placement, pancreatic necrosectomy with multiple drains in place-- on 10/17 ABX per ID Follow surgery recs Continue TF and TPN for nutrition support Vasopressors for hypotension to keep MAP above 65 DVT/GI PPX D/W RN and RT CC time 30 minutes HARMEET BEE MD Oct 25, 2019 08:43
--- NOTE | 2019-10-25 08:48 | PDOC ---
PROGRESS NOTES Chief Complaint Chief Complaint late entry, pt seen ., tank, discussed wtih RN, then the computers went down Acute hypoxic Respiratory failure required mechanical ventilation Tracheostomy bilateral pleural effusions/pulm edema s/p Throacentesis on 10/03/2019 Severe Acute gallstone pancreatitis (not a surgical candidate at this time) with necrosis Acute kidney failure now requiring dialysis Gallstones (Calculus of gallbladder with acute cholecystitis without obstruction) HTN Intractable pain Intractable nausea Covid 19 negative. Acute on chronic anemia EEG: No seizure activityFever - better currently - intermittent could be from underlying pancreatitis blood cults 08/21 - neg so far ? Ileus with vomiting Abd distention - U/S and CT reviewed s/p 0.4 L of opaque, debris-containing ascites was removed 08/23 Acute pancreatitis with persistent necrosis Gallstone pancreatitis with necrosis. -CT A/P 09/23 showed multiple pseudocysts, slight larger on the right. s/p drains x 3, 09/24. + PSAE (MDRO-R Cefepime, Zosyn ALEXANDRA < 64) and yeast, -s/p drain 08/14. C. parapsilosis. s/p drain 08/23 + yeast & high amylase; s/p additional drain on 08/25. Drains removed. Ascites s/p paracentesis 08/02 & 08/23. C. parapsilosis JUANA. off HD. A large fluid collection in the pancreatic bed has slightly decreased in size, described below, the pancreas itself is difficult to visualize, which could be due to necrosis or obscuration of pancreatic parenchyma from the surrounding fluid collection.10/02 - 08/14 status post KAYLIN drain placement + C paropsilosis. s/p additional drains 08/25 Anemia - S/p PRBCs Cholelithiasis with thickening of the gallbladder wall. Leucocytosis improving JUANA, hyperkalemia, Metabolic acidosis off dialysis hypocalcemia Prediabetes HTN s/p trach ESRD on HD Hyperglycemia severe protein-caloric malnutrition Moderate to large left pleural effusion with atelectasis and collapse of most of the left lower lobe, stable Dispo - ICU, critically ill Poor prognosis History of Present Illness History of Present Illness 10/23. seen and evaluated, still with marked drainage tube cont 10/22 cont current prognosis poor, Vitals Vitals Vital Signs Date Time Temp Pulse Resp B/P (MAP) Pulse Ox O2 Delivery O2 Flow Rate FiO2 10/25/19 07:00 91 19 144/99 (114) 100 Ventilator 10/25/19 04:00 98.1 98.1 10/25/19 00:25 40.0 Physical Exam Physical Exam GENERAL: Alert but not responsive. ill appearing HEENT: Pupils equal, oral cavity dry. + NGT NECK: Tracheostomy LUNGS: Diminished aeration bases, CT on left HEART: S1, S2, regular w/ PVCs ABDOMEN: Sightly Distended, bowel sounds hypoactive, soft, goyal x 2, 3 KAYLIN drains, G-J tube and + wound vac : Lind in place EXTREMITIES: Generalized edema, no cyanosis. SCDs & Podus boots bilaterally SKIN: warm touch. No signs of rash. LUE-PICC without signs of complications LUE art-line out, mottling left forearm about ole art-line site is improving, some better. RP palpable, cap refill brisk. NEURO: alert but not responsive - ? tracking General: Cooperative, No acute distress Heart: Regular rate (SR/ST), Other (distant heart sounds) Lungs: Crackles Abdomen: Soft, Other (drains in place) Extremities: Other (Diffuse edema) Skin: No rashes, No significant lesion Labs LABS Laboratory Tests Test 10/24/19 11:56 10/24/19 16:51 10/25/19 00:00 10/25/19 05:20 Glucose (Fingerstick) 154 mg/dL (70-99) 153 mg/dL (70-99) 123 mg/dL (70-99) White Blood Count 15.0 x10^3/uL (4.0-11.0) Red Blood Count 2.54 x10^6/uL (3.50-5.40) Hemoglobin 7.5 g/dL (12.0-15.5) Hematocrit 22.5 % (36.0-47.0) Mean Corpuscular Volume 89 fL (79-100) Mean Corpuscular Hemoglobin 30 pg (25-35) Mean Corpuscular Hemoglobin Concent 33 g/dL (31-37) Red Cell Distribution Width 14.8 % (11.5-14.5) Platelet Count 414 x10^3/uL (140-400) Neutrophils (%) (Auto) 86 % (31-73) Lymphocytes (%) (Auto) 7 % (24-48) Monocytes (%) (Auto) 6 % (0-9) Eosinophils (%) (Auto) 1 % (0-3) Basophils (%) (Auto) 0 % (0-3) Neutrophils # (Auto) 12.9 x10^3/uL (1.8-7.7) Lymphocytes # (Auto) 1.0 x10^3/uL (1.0-4.8) Monocytes # (Auto) 0.9 x10^3/uL (0.0-1.1) Eosinophils # (Auto) 0.2 x10^3/uL (0.0-0.7) Basophils # (Auto) 0.0 x10^3/uL (0.0-0.2) Test 10/25/19 05:32 Glucose (Fingerstick) 159 mg/dL (70-99) Assessment and Plan Assessmemt and Plan Problems Medical Problems: (1) Acute pancreatitis Status: Acute (2) Cholelithiasis Status: Acute Comment Review of Relevant I have reviewed the following items kolby (where applicable) has been applied. Labs Laboratory Tests Test 10/23/19 12:49 10/23/19 18:06 10/23/19 23:53 10/24/19 06:15 Glucose (Fingerstick) 169 mg/dL (70-99) 132 mg/dL (70-99) 147 mg/dL (70-99) White Blood Count 18.0 x10^3/uL (4.0-11.0) Red Blood Count 2.62 x10^6/uL (3.50-5.40) Hemoglobin 7.7 g/dL (12.0-15.5) Hematocrit 23.4 % (36.0-47.0) Mean Corpuscular Volume 89 fL (79-100) Mean Corpuscular Hemoglobin 30 pg (25-35) Mean Corpuscular Hemoglobin Concent 33 g/dL (31-37) Red Cell Distribution Width 14.5 % (11.5-14.5) Platelet Count 375 x10^3/uL (140-400) Neutrophils (%) (Auto) 86 % (31-73) Lymphocytes (%) (Auto) 7 % (24-48) Monocytes (%) (Auto) 6 % (0-9) Eosinophils (%) (Auto) 1 % (0-3) Basophils (%) (Auto) 0 % (0-3) Neutrophils # (Auto) 15.5 x10^3/uL (1.8-7.7) Lymphocytes # (Auto) 1.2 x10^3/uL (1.0-4.8) Monocytes # (Auto) 1.0 x10^3/uL (0.0-1.1) Eosinophils # (Auto) 0.2 x10^3/uL (0.0-0.7) Basophils # (Auto) 0.0 x10^3/uL (0.0-0.2) Sodium Level 135 mmol/L (136-145) Potassium Level 4.5 mmol/L (3.5-5.1) Chloride Level 103 mmol/L (98-107) Carbon Dioxide Level 29 mmol/L (21-32) Anion Gap 3 (6-14) Blood Urea Nitrogen 19 mg/dL (7-20) Creatinine 0.5 mg/dL (0.6-1.0) Estimated GFR (Cockcroft-Gault) 131.1 Glucose Level 155 mg/dL (70-99) Calcium Level 9.2 mg/dL (8.5-10.1) Phosphorus Level 3.4 mg/dL (2.6-4.7) Magnesium Level 1.8 mg/dL (1.8-2.4) Triglycerides Level 207 mg/dL (0-150) Test 10/24/19 06:21 10/24/19 11:56 10/24/19 16:51 10/25/19 00:00 Glucose (Fingerstick) 151 mg/dL (70-99) 154 mg/dL (70-99) 153 mg/dL (70-99) 123 mg/dL (70-99) Test 10/25/19 05:20 10/25/19 05:32 White Blood Count 15.0 x10^3/uL (4.0-11.0) Red Blood Count 2.54 x10^6/uL (3.50-5.40) Hemoglobin 7.5 g/dL (12.0-15.5) Hematocrit 22.5 % (36.0-47.0) Mean Corpuscular Volume 89 fL (79-100) Mean Corpuscular Hemoglobin 30 pg (25-35) Mean Corpuscular Hemoglobin Concent 33 g/dL (31-37) Red Cell Distribution Width 14.8 % (11.5-14.5) Platelet Count 414 x10^3/uL (140-400) Neutrophils (%) (Auto) 86 % (31-73) Lymphocytes (%) (Auto) 7 % (24-48) Monocytes (%) (Auto) 6 % (0-9) Eosinophils (%) (Auto) 1 % (0-3) Basophils (%) (Auto) 0 % (0-3) Neutrophils # (Auto) 12.9 x10^3/uL (1.8-7.7) Lymphocytes # (Auto) 1.0 x10^3/uL (1.0-4.8) Monocytes # (Auto) 0.9 x10^3/uL (0.0-1.1) Eosinophils # (Auto) 0.2 x10^3/uL (0.0-0.7) Basophils # (Auto) 0.0 x10^3/uL (0.0-0.2) Glucose (Fingerstick) 159 mg/dL (70-99) Laboratory Tests Test 10/24/19 11:56 10/24/19 16:51 10/25/19 00:00 10/25/19 05:20 Glucose (Fingerstick) 154 mg/dL (70-99) 153 mg/dL (70-99) 123 mg/dL (70-99) White Blood Count 15.0 x10^3/uL (4.0-11.0) Red Blood Count 2.54 x10^6/uL (3.50-5.40) Hemoglobin 7.5 g/dL (12.0-15.5) Hematocrit 22.5 % (36.0-47.0) Mean Corpuscular Volume 89 fL (79-100) Mean Corpuscular Hemoglobin 30 pg (25-35) Mean Corpuscular Hemoglobin Concent 33 g/dL (31-37) Red Cell Distribution Width 14.8 % (11.5-14.5) Platelet Count 414 x10^3/uL (140-400) Neutrophils (%) (Auto) 86 % (31-73) Lymphocytes (%) (Auto) 7 % (24-48) Monocytes (%) (Auto) 6 % (0-9) Eosinophils (%) (Auto) 1 % (0-3) Basophils (%) (Auto) 0 % (0-3) Neutrophils # (Auto) 12.9 x10^3/uL (1.8-7.7) Lymphocytes # (Auto) 1.0 x10^3/uL (1.0-4.8) Monocytes # (Auto) 0.9 x10^3/uL (0.0-1.1) Eosinophils # (Auto) 0.2 x10^3/uL (0.0-0.7) Basophils # (Auto) 0.0 x10^3/uL (0.0-0.2) Test 10/25/19 05:32 Glucose (Fingerstick) 159 mg/dL (70-99) Microbiology 10/18/19 Gram Stain - Final, Complete 10/18/19 Aerobic and Anaerobic Culture - Final, Complete 10/18/19 Antimicrobic Susceptibility - Final, Complete 10/16/19 Blood Culture - Final, Complete NO GROWTH AFTER 5 DAYS 10/03/19 Gram Stain - Final, Complete 10/03/19 Aerobic and Anaerobic Culture - Final, Complete 10/01/19 Gram Stain Evaluation - Final, Complete 10/01/19 Respiratory Culture - Final, Complete 10/01/19 Antimicrobic Susceptibility - Final, Complete 09/25/19 Urine Culture - Final, Complete 09/17/19 Gram Stain - Final, Complete 09/17/19 Aerobic Culture - Final, Complete Medications Current Medications Sodium Chloride 1,000 ml @ 1,000 mls/hr Q1H IV Last administered on 07/04/19at 03:00; Start 07/04/19 at 03:00; Stop 07/04/19 at 03:59; Status DC Ondansetron HCl (Zofran) 4 mg 1X ONCE IVP Last administered on 07/04/19at 03:27; Start 07/04/19 at 03:00; Stop 07/04/19 at 03:01; Status DC Morphine Sulfate (Morphine Sulfate) 4 mg 1X ONCE IV ; Start 07/04/19 at 03:00; Stop 07/04/19 at 03:01; Status Cancel Ketorolac Tromethamine (Toradol 30mg Vial) 30 mg 1X ONCE IV Last administered on 07/04/19at 02:54; Start 07/04/19 at 03:00; Stop 07/04/19 at 03:01; Status DC Fentanyl Citrate (Fentanyl 2ml Vial) 25 mcg 1X ONCE IVP Last administered on 07/04/19at 03:23; Start 07/04/19 at 03:30; Stop 07/04/19 at 03:31; Status DC Fentanyl Citrate (Fentanyl 2ml Vial) 100 mcg STK-MED ONCE .ROUTE ; Start 07/04/19 at 03:18; Stop 07/04/19 at 03:18; Status DC Iohexol (Omnipaque 350 Mg/ml) 90 ml 1X ONCE IV Last administered on 07/04/19at 03:25; Start 07/04/19 at 03:30; Stop 07/04/19 at 03:31; Status DC Info (CONTRAST GIVEN -- Rx MONITORING) 1 each PRN DAILY PRN MC SEE COMMENTS; Start 07/04/19 at 03:30; Stop 07/06/19 at 03:29; Status DC Hydromorphone HCl (Dilaudid) 0.5 mg 1X ONCE IV Last administered on 07/04/19at 03:55; Start 07/04/19 at 04:30; Stop 07/04/19 at 04:32; Status DC Ondansetron HCl (Zofran) 4 mg PRN Q8HRS PRN IV NAUSEA/VOMITING 1ST CHOICE; Start 07/04/19 at 05:00; Stop 07/04/19 at 09:27; Status DC Morphine Sulfate (Morphine Sulfate) 2 mg PRN Q2HR PRN IV SEVERE PAIN 7-10 Last administered on 07/05/19at 12:26; Start 07/04/19 at 05:00; Stop 07/05/19 at 14:15; Status DC Sodium Chloride 1,000 ml @ 125 mls/hr Q8H IV Last administered on 07/04/19at 20:56; Start 07/04/19 at 05:00; Stop 07/05/19 at 04:59; Status DC Hydromorphone HCl (Dilaudid) 0.5 mg PRN Q3HRS PRN IV SEVERE PAIN 7-10 Last administered on 07/05/19at 10:06; Start 07/04/19 at 05:00; Stop 07/05/19 at 12:01; Status DC Piperacillin Sod/ Tazobactam Sod 4.5 gm/Sodium Chloride 100 ml @ 200 mls/hr 1X ONCE IV Last administered on 07/04/19at 05:44; Start 07/04/19 at 06:00; Stop 07/04/19 at 06:29; Status DC Ondansetron HCl (Zofran) 4 mg PRN Q4HRS PRN IV NAUSEA/VOMITING 1ST CHOICE Last administered on 10/15/19at 13:37; Start 07/04/19 at 09:30 Insulin Human Lispro (HumaLOG) 0-9 UNITS Q6HRS SQ Last administered on 10/25/19at 05:37; Start 07/04/19 at 09:30 Dextrose (Dextrose 50%-Water Syringe) 12.5 gm PRN Q15MIN PRN IV SEE COMMENTS; Start 07/04/19 at 09:30 Pantoprazole Sodium (PROTONIX VIAL for IV PUSH) 40 mg DAILYAC IVP Last administered on 10/25/19at 08:32; Start 07/04/19 at 11:30 Prochlorperazine Edisylate (Compazine) 10 mg PRN Q6HRS PRN IV NAUSEA/VOMITING, 2nd CHOICE Last administered on 10/15/19at 10:53; Start 07/04/19 at 17:45 Atenolol (Tenormin) 100 mg DAILY PO ; Start 07/05/19 at 09:00; Stop 07/04/19 at 20:08; Status DC Metoprolol Tartrate (Lopressor Vial) 2.5 mg Q6HRS IVP Last administered on 07/05/19at 05:51; Start 07/04/19 at 20:15; Stop 07/05/19 at 10:02; Status DC Metoprolol Tartrate (Lopressor Vial) 5 mg Q6HRS IVP Last administered on 07/14/19at 00:12; Start 07/05/19 at 10:15; Stop 07/16/19 at 08:48; Status DC Hydromorphone HCl (Dilaudid) 1 mg PRN Q3HRS PRN IV SEVERE PAIN 7-10 Last administered on 07/11/19at 05:13; Start 07/05/19 at 12:00; Stop 07/19/19 at 00:25; Status DC Lidocaine HCl (Buffered Lidocaine 1%) 3 ml STK-MED ONCE .ROUTE ; Start 07/05/19 at 12:55; Stop 07/05/19 at 12:56; Status DC Albumin Human 500 ml @ 125 mls/hr 1X ONCE IV Last administered on 07/05/19at 14:33; Start 07/05/19 at 14:30; Stop 07/05/19 at 18:32; Status DC Norepinephrine Bitartrate 8 mg/ Dextrose 258 ml @ 17.299 mls/ hr CONT PRN IV PER PROTOCOL Last administered on 08/02/19at 12:48; Start 07/05/19 at 15:30; Stop 08/05/19 at 09:19; Status DC Sodium Chloride 1,000 ml @ 125 mls/hr Q8H IV Last administered on 07/05/19at 21:04; Start 07/05/19 at 16:00; Stop 07/06/19 at 02:42; Status DC Albumin Human 500 ml @ 125 mls/hr PRN BID PRN IV After every 2L NSS & BP < 90mm Last administered on 10/18/19at 16:06; Start 07/05/19 at 16:00; Stop 10/21/19 at 09:30; Status DC Iohexol (Omnipaque 300 Mg/ml) 60 ml 1X ONCE IV Last administered on 07/05/19at 17:20; Start 07/05/19 at 17:00; Stop 07/05/19 at 17:01; Status DC Info (CONTRAST GIVEN -- Rx MONITORING) 1 each PRN DAILY PRN MC SEE COMMENTS; Start 07/05/19 at 17:00; Stop 07/07/19 at 16:59; Status DC Meropenem 1 gm/ Sodium Chloride 100 ml @ 200 mls/hr Q8HRS IV Last administered on 07/06/19at 05:45; Start 07/05/19 at 20:00; Stop 07/06/19 at 08:48; Status DC Furosemide (Lasix) 40 mg 1X ONCE IVP Last administered on 07/05/19at 22:12; Start 07/05/19 at 22:30; Stop 07/05/19 at 22:31; Status DC Calcium Chloride 1000 mg/Sodium Chloride 110 ml @ 220 mls/hr 1X ONCE IV Last administered on 07/05/19at 22:11; Start 07/05/19 at 22:30; Stop 07/05/19 at 22:59; Status DC Albuterol Sulfate (Ventolin Neb Soln) 2.5 mg 1X ONCE NEB Last administered on 07/06/19at 00:56; Start 07/05/19 at 22:30; Stop 07/05/19 at 22:31; Status DC Insulin Human Regular (HumuLIN R VIAL) 5 unit 1X ONCE IV Last administered on 07/05/19at 22:14; Start 07/05/19 at 22:30; Stop 07/05/19 at 22:31; Status DC Magnesium Sulfate 50 ml @ 25 mls/hr 1X ONCE IV Last administered on 07/06/19at 02:57; Start 07/06/19 at 03:00; Stop 07/06/19 at 04:59; Status DC Calcium Gluconate 1000 mg/Sodium Chloride 110 ml @ 220 mls/hr 1X ONCE IV Last administered on 07/06/19at 02:46; Start 07/06/19 at 03:00; Stop 07/06/19 at 03:29; Status DC Sodium Chloride 1,000 ml @ 200 mls/hr Q5H IV Last administered on 07/06/19at 02:46; Start 07/06/19 at 03:00; Stop 07/06/19 at 10:21; Status DC Calcium Gluconate 1000 mg/Sodium Chloride 110 ml @ 220 mls/hr 1X ONCE IV Last administered on 07/06/19at 03:21; Start 07/06/19 at 03:30; Stop 07/06/19 at 03:59; Status DC Sodium Bicarbonate 50 meq/Sodium Chloride 1,050 ml @ 75 mls/hr Q14H IV Last administered on 07/10/19at 21:10; Start 07/06/19 at 07:30; Stop 07/11/19 at 10:28; Status DC Calcium Gluconate 2000 mg/Sodium Chloride 120 ml @ 220 mls/hr 1X ONCE IV Last administered on 07/06/19at 09:05; Start 07/06/19 at 07:30; Stop 07/06/19 at 08:02; Status DC Lidocaine HCl (Xylocaine-Mpf 1% 2ml Vial) 2 ml STK-MED ONCE .ROUTE ; Start 07/06/19 at 08:47; Stop 07/06/19 at 08:47; Status DC Meropenem 500 mg/ Sodium Chloride 50 ml @ 100 mls/hr Q12HR IV Last administered on 07/11/19at 21:01; Start 07/06/19 at 18:00; Stop 07/12/19 at 07:58; Status DC Lidocaine HCl (Buffered Lidocaine 1%) 3 ml STK-MED ONCE .ROUTE ; Start 07/06/19 at 09:46; Stop 07/06/19 at 09:46; Status DC Lidocaine HCl (Buffered Lidocaine 1%) 6 ml 1X ONCE INJ Last administered on 07/06/19at 10:26; Start 07/06/19 at 10:15; Stop 07/06/19 at 10:16; Status DC Info (Tpn Per Pharmacy) 1 each PRN DAILY PRN MC SEE COMMENTS Last administered on 10/24/19at 12:17; Start 07/06/19 at 12:00 Sodium Chloride 1,000 ml @ 1,000 mls/hr Q1H PRN IV hypotension; Start 07/06/19 at 12:07; Stop 07/06/19 at 18:06; Status DC Diphenhydramine HCl (Benadryl) 25 mg 1X PRN PRN IV ITCHING; Start 07/06/19 at 12:15; Stop 07/07/19 at 12:14; Status DC Diphenhydramine HCl (Benadryl) 25 mg 1X PRN PRN IV ITCHING; Start 07/06/19 at 12:15; Stop 07/07/19 at 12:14; Status DC Sodium Chloride 1,000 ml @ 400 mls/hr Q2H30M PRN IV PATENCY; Start 07/06/19 at 12:07; Stop 07/07/19 at 00:06; Status DC Info (PHARMACY MONITORING -- do not chart) 1 each PRN DAILY PRN MC SEE COMMENTS; Start 07/06/19 at 12:15; Stop 07/08/19 at 08:13; Status DC Sodium Chloride 90 meq/Calcium Gluconate 10 meq/ Multivitamins 10 ml/Chromium/ Copper/Manganese/ Seleni/Zn 1 ml/ Total Parenteral Nutrition/Amino Acids/Dextrose/ Fat Emulsion Intravenous 55.005 ml @ 2.292 mls/hr TPN CONT IV ; Start 07/06/19 at 22:00; Stop 07/06/19 at 12:33; Status DC Info (Tpn Per Pharmacy) 1 each PRN DAILY PRN MC SEE COMMENTS; Start 07/06/19 at 12:30; Status UNV Sodium Chloride 90 meq/Calcium Gluconate 10 meq/ Multivitamins 10 ml/Chromium/ Copper/Manganese/ Seleni/Zn 0.5 ml/ Total Parenteral Nutrition/Amino Acids/Dextrose/ Fat Emulsion Intravenous 1,512 ml @ 63 mls/hr TPN CONT IV Last administered on 07/06/19at 22:06; Start 07/06/19 at 22:00; Stop 07/07/19 at 21:59; Status DC Calcium Carbonate/ Glycine (Tums) 500 mg PRN AFTMEALHC PRN PO INDIGESTION; Start 07/06/19 at 17:45; Stop 08/31/19 at 10:25; Status DC Calcium Gluconate (Calcium Gluconate) 2,000 mg 1X ONCE IVP Last administered on 07/07/19at 02:19; Start 07/07/19 at 02:15; Stop 07/07/19 at 02:16; Status DC Calcium Chloride 3000 mg/Sodium Chloride 1,030 ml @ 50 mls/hr [id number] IV Last administered on 07/09/19at 02:17; Start 07/07/19 at 08:00; Stop 07/09/19 at 15:23; Status DC Lorazepam (Ativan Inj) 1 mg PRN Q4HRS PRN IVP ANXIETY / AGITATION, 2nd choic Last administered on 08/05/19at 03:51; Start 07/07/19 at 09:00; Stop 08/05/19 at 09:19; Status DC Sodium Chloride 1,000 ml @ 1,000 mls/hr Q1H PRN IV hypotension; Start 07/07/19 at 08:56; Stop 07/07/19 at 14:55; Status DC Albumin Human 200 ml @ 200 mls/hr 1X PRN PRN IV Hypotension; Start 07/07/19 at 09:00; Stop 07/07/19 at 14:59; Status DC Diphenhydramine HCl (Benadryl) 25 mg 1X PRN PRN IV ITCHING; Start 07/07/19 at 09:00; Stop 07/08/19 at 08:59; Status DC Diphenhydramine HCl (Benadryl) 25 mg 1X PRN PRN IV ITCHING; Start 07/07/19 at 09:00; Stop 07/08/19 at 08:59; Status DC Sodium Chloride 1,000 ml @ 400 mls/hr Q2H30M PRN IV PATENCY; Start 07/07/19 at 08:56; Stop 07/07/19 at 20:55; Status DC Info (PHARMACY MONITORING -- do not chart) 1 each PRN DAILY PRN MC SEE COMMENTS; Start 07/07/19 at 09:00; Status UNV Info (PHARMACY MONITORING -- do not chart) 1 each PRN DAILY PRN MC SEE CO MMENTS; Start 07/07/19 at 09:00; Stop 07/08/19 at 08:13; Status DC Digoxin (Lanoxin) 500 mcg 1X ONCE IV Last administered on 07/07/19at 10:04; Start 07/07/19 at 10:00; Stop 07/07/19 at 10:01; Status DC Digoxin (Lanoxin) 125 mcg 1X ONCE IV Last administered on 07/07/19at 17:10; Start 07/07/19 at 18:00; Stop 07/07/19 at 18:01; Status DC Magnesium Sulfate 100 ml @ 25 mls/hr 1X ONCE IV Last administered on 07/07/19at 12:48; Start 07/07/19 at 13:00; Stop 07/07/19 at 16:59; Status DC Sodium Chloride 90 meq/Magnesium Sulfate 10 meq/ Calcium Gluconate 20 meq/ Multivitamins 10 ml/Chromium/ Copper/Manganese/ Seleni/Zn 0.5 ml/ Total Pa renteral Nutrition/Amino Acids/Dextrose/ Fat Emulsion Intravenous 1,512 ml @ 63 mls/hr TPN CONT IV Last administered on 07/07/19at 22:25; Start 07/07/19 at 22:00; Stop 07/08/19 at 21:59; Status DC Sodium Chloride 1,000 ml @ 1,000 mls/hr Q1H PRN IV hypotension; Start 07/08/19 at 08:05; Stop 07/08/19 at 14:04; Status DC Albumin Human 200 ml @ 200 mls/hr 1X ONCE IV Last administered on 07/08/19at 08:57; Start 07/08/19 at 08:15; Stop 07/08/19 at 09:14; Status DC Diphenhydramine HCl (Benadryl) 25 mg 1X PRN PRN IV ITCHING; Start 07/08/19 at 08:15; Stop 07/09/19 at 08:14; Status DC Diphenhydramine HCl (Benadryl) 25 mg 1X PRN PRN IV ITCHING; Start 07/08/19 at 08:15; Stop 07/09/19 at 08:14; Status DC Sodium Chloride 1,000 ml @ 400 mls/hr Q2H30M PRN IV PATENCY; Start 07/08/19 at 08:05; Stop 07/08/19 at 20:04; Status DC Info (PHARMACY MONITORING -- do not chart) 1 each PRN DAILY PRN MC SEE COMMENTS; Start 07/08/19 at 08:15; Stop 07/12/19 at 07:57; Status DC Sodium Chloride 90 meq/Potassium Chloride 15 meq/ Potassium Phosphate 10 mmol/ Magnesium Sulfate 10 meq/Calcium Gluconate 20 meq/ Multivitamins 10 ml/Chromium/ Copper/Manganese/ Seleni/Zn 0.5 ml/ Total Parenteral Nutrition/Amino Acids/Dextrose/ Fat Emulsion Intravenous 1,512 ml @ 63 mls/hr TPN CONT IV Last administered on 07/08/19at 21:01; Start 07/08/19 at 22:00; Stop 07/09/19 at 21:59; Status DC Potassium Chloride/Water 100 ml @ 100 mls/hr 1X ONCE IV Last administered on 07/08/19at 14:09; Start 07/08/19 at 14:00; Stop 07/08/19 at 14:59; Status DC Benzocaine (Hurricaine One) 1 spray 1X ONCE MM Last administered on 07/08/19at 16:38; Start 07/08/19 at 14:30; Stop 07/08/19 at 14:31; Status DC Lidocaine HCl (Glydo (Lidocaine) Jelly) 1 ramu 1X ONCE MM Last administered on 07/08/19at 16:38; Start 07/08/19 at 14:30; Stop 07/08/19 at 14:31; Status DC Linezolid/Dextrose 300 ml @ 300 mls/hr Q12HR IV Last administered on 07/14/19at 21:04; Start 07/08/19 at 20:00; Stop 07/15/19 at 07:50; Status DC Acetaminophen (Tylenol) 650 mg PRN Q6HRS PRN PO MILD PAIN / TEMP; Start 07/09/19 at 03:30; Stop 07/09/19 at 03:36; Status DC Acetaminophen (Tylenol) 650 mg PRN Q6HRS PRN PEG MILD PAIN / TEMP Last administered on 08/04/19at 19:56; Start 07/09/19 at 03:36; Stop 08/31/19 at 10:25; Status DC Sodium Chloride 1,000 ml @ 1,000 mls/hr Q1H PRN IV hypotension; Start 07/09/19 at 07:50; Stop 07/09/19 at 13:49; Status DC Albumin Human 200 ml @ 200 mls/hr 1X PRN PRN IV Hypotension; Start 07/09/19 at 08:00; Stop 07/09/19 at 13:59; Status DC Sodium Chloride (Normal Saline Flush) 10 ml 1X PRN PRN IV AP catheter pack; Start 07/09/19 at 08:00; Stop 07/10/19 at 07:59; Status DC Sodium Chloride (Normal Saline Flush) 10 ml 1X PRN PRN IV [employer] catheter pack; Start 07/09/19 at 08:00; Stop 07/10/19 at 07:59; Status DC Sodium Chloride 1,000 ml @ 400 mls/hr Q2H30M PRN IV PATENCY; Start 07/09/19 at 07:50; Stop 07/09/19 at 19:49; Status DC Info (PHARMACY MONITORING -- do not chart) 1 each PRN DAILY PRN MC SEE COMMENTS; Start 07/09/19 at 08:00; Status UNV Info (PHARMACY MONITORING -- do not chart) 1 each PRN DAILY PRN MC SEE COMMENTS; Start 07/09/19 at 08:00; Stop 07/11/19 at 08:25; Status DC Sodium Chloride 90 meq/Potassium Chloride 15 meq/ Potassium Phosphate 10 mmol/ Magnesium Sulfate 10 meq/Calcium Gluconate 20 meq/ Multivitamins 10 ml/Chromium/ Copper/Manganese/ Seleni/Zn 0.5 ml/ Total Parenteral Nutrition/Amino Acids/Dextrose/ Fat Emulsion Intravenous 1,512 ml @ 63 mls/hr TPN CONT IV Last administered on 3/21/20at 20:57; Start 07/09/19 at 22:00; Stop 07/10/19 at 21:59; Status DC Sodium Chloride 90 meq/Potassium Chloride 15 meq/ Potassium Phosphate 15 mmol/ Magnesium Sulfate 10 meq/Calcium Gluconate 20 meq/ Multivitamins 10 ml/Chromium/ Copper/Manganese/ Seleni/Zn 0.5 ml/ Total Parenteral Nutrition/Amino Acids/Dextrose/ Fat Emulsion Intravenous 1,512 ml @ 63 mls/hr TPN CONT IV ; Start 07/10/19 at 22:00; Stop 07/10/19 at 14:16; Status DC Sodium Chloride 90 meq/Potassium Chloride 15 meq/ Potassium Phosphate 15 mmol/ Magnesium Sulfate 10 meq/Calcium Gluconate 20 meq/ Multivitamins 10 ml/Chromium/ Copper/Manganese/ Seleni/Zn 0.5 ml/ Total Parenteral Nutrition/Amino Acids/Dextrose/ Fat Emulsion Intravenous 1,200 ml @ 50 mls/hr TPN CONT IV ; Start 07/10/19 at 22:00; Stop 07/10/19 at 14:17; Status DC Sodium Chloride 90 meq/Potassium Chloride 15 meq/ Potassium Phosphate 10 mmol/ Magnesium Sulfate 10 meq/Calcium Gluconate 20 meq/ Multivitamins 10 ml/Chromium/ Copper/Manganese/ Seleni/Zn 0.5 ml/ Total Parenteral Nutrition/Amino Acids/Dextrose/ Fat Emulsion Intravenous 1,200 ml @ 50 mls/hr TPN CONT IV Last administered on 07/10/19at 23:29; Start 07/10/19 at 22:00; Stop 07/11/19 at 21:59; Status DC Sodium Chloride 1,000 ml @ 1,000 mls/hr Q1H PRN IV hypotension; Start 07/11/19 at 07:28; Stop 07/11/19 at 13:27; Status DC Albumin Human 200 ml @ 200 mls/hr 1X ONCE IV Last administered on 07/11/19at 08:51; Start 07/11/19 at 07:30; Stop 07/11/19 at 08:29; Status DC Diphenhydramine HCl (Benadryl) 25 mg 1X PRN PRN IV ITCHING; Start 07/11/19 at 07:30; Stop 07/12/19 at 07:29; Status DC Diphenhydramine HCl (Benadryl) 25 mg 1X PRN PRN IV ITCHING; Start 07/11/19 at 07:30; Stop 07/12/19 at 07:29; Status DC Sodium Chloride 1,000 ml @ 400 mls/hr Q2H30M PRN IV PATENCY; Start 07/11/19 at 07:28; Stop 07/11/19 at 19:27; Status DC Info (PHARMACY MONITORING -- do not chart) 1 each PRN DAILY PRN MC SEE COMMENTS; Start 07/11/19 at 07:30; Stop 07/22/19 at 13:01; Status DC Metronidazole 100 ml @ 100 mls/hr Q6HRS IV Last administered on 07/27/19at 06:26; Start 07/11/19 at 08:30; Stop 07/27/19 at 09:58; Status DC Micafungin Sodium 100 mg/Dextrose 100 ml @ 100 mls/hr Q24H IV Last administered on 08/18/19at 08:18; Start 07/11/19 at 09:00; Stop 08/18/19 at 20:58; Status DC Propofol 0 ml @ As Directed STK-MED ONCE IV ; Start 07/11/19 at 07:53; Stop 06/19 07/07 at 07:53; Status DC Etomidate (Amidate) 20 mg STK-MED ONCE IV ; Start 07/11/19 at 07:53; Stop 07/11/19 at 07:54; Status DC Midazolam HCl (Versed) 5 mg STK-MED ONCE .ROUTE ; Start 07/11/19 at 07:57; Stop 07/11/19 at 07:57; Status DC Fentanyl Citrate 30 ml @ 0 mls/hr CONT PRN IV SEE PROTOCOL Last administered on 08/05/19at 06:12; Start 07/11/19 at 08:15; Stop 08/05/19 at 09:19; Status DC Artificial Tears (Artificial Tears) 1 drop PRN Q1HR PRN OU DRY EYE, 1st choice; Start 07/11/19 at 08:15; Stop 08/17/19 at 05:31; Status DC Midazolam HCl 50 mg/Sodium Chloride 50 ml @ 0 mls/hr CONT PRN IV SEE PROTOCOL Last administered on 07/14/19at 22:39; Start 07/11/19 at 08:15; Stop 07/16/19 at 15:59; Status DC Etomidate (Amidate) 8 mg 1X ONCE IV Last administered on 07/11/19at 08:33; Start 07/11/19 at 08:30; Stop 07/11/19 at 08:31; Status DC Succinylcholine Chloride (Anectine) 120 mg 1X ONCE IV Last administered on 07/11/19at 08:34; Start 07/11/19 at 08:30; Stop 07/11/19 at 08:31; Status DC Midazolam HCl (Versed) 5 mg 1X ONCE IV ; Start 07/11/19 at 08:30; Stop 07/11/19 at 08:31; Status DC Potassium Chloride 15 meq/ Bicarbonate Dialysis Soln w/ out KCl 5,007.5 ml @ 1,000 mls/ hr Q5H1M IV Last administered on 07/12/19at 11:11; Start 07/11/19 at 12:00; Stop 07/12/19 at 11:15; Status DC Potassium Chloride 15 meq/ Bicarbonate Dialysis Soln w/ out KCl 5,007.5 ml @ 1,000 mls/ hr Q5H1M IV Last administered on 07/12/19at 11:12; Start 07/11/19 at 12:00; Stop 07/12/19 at 11:17; Status DC Potassium Chloride 15 meq/ Bicarbonate Dialysis Soln w/ out KCl 5,007.5 ml @ 1,000 mls/ hr Q5H1M IV Last administered on 07/12/19at 11:11; Start 07/11/19 at 12:00; Stop 07/12/19 at 11:19; Status DC Sodium Chloride 90 meq/Potassium Chloride 15 meq/ Potassium Phosphate 10 mmol/ Magnesium Sulfate 10 meq/Calcium Gluconate 20 meq/ Multivitamins 10 ml/Chromium/ Copper/Manganese/ Seleni/Zn 0.5 ml/ Total Parenteral Nutrition/Amino Acids/Dextrose/ Fat Emulsion Intravenous 1,400 ml @ 58.333 mls/ hr TPN CONT IV Last administered on 07/11/19at 21:42; Start 07/11/19 at 22:00; Stop 07/12/19 at 21:59; Status DC Heparin Sodium (Porcine) (Heparin Sodium) 5,000 unit Q8HRS SQ Last administered on 07/16/19at 05:55; Start 07/11/19 at 15:00; Stop 3/28/20 at 13:28; Status DC Meropenem 500 mg/ Sodium Chloride 50 ml @ 100 mls/hr Q6HRS IV Last administered on 07/13/19at 06:00; Start 07/12/19 at 09:00; Stop 07/13/19 at 07:29; Status DC Potassium Phosphate 20 mmol/ Sodium Chloride 106.6667 ml @ 51.667 m... 1X ONCE IV Last administered on 07/12/19at 11:22; Start 07/12/19 at 10:15; Stop 07/12/19 at 12:18; Status DC Acetaminophen (Tylenol Supp) [address] MILD PAIN / TEMP > 100.3'F Last administered on 10/17/19at 18:16; Start 07/12/19 at 10:30 Potassium Chloride/Water 100 ml @ 100 mls/hr Q1H IV Last administered on 07/12/19at 12:12; Start 07/12/19 at 11:00; Stop 07/12/19 at 12:59; Status DC Potassium Chloride 20 meq/ Bicarbonate Dialysis Soln w/ out KCl 5,010 ml @ 1,000 mls/hr Q5H1M IV Last administered on 07/13/19at 08:48; Start 07/12/19 at 12:00; Stop 07/13/19 at 13:03; Status DC Potassium Chloride 20 meq/ Bicarbonate Dialysis Soln w/ out KCl 5,010 ml @ 1,000 mls/hr Q5H1M IV Last administered on 07/17/19at 14:52; Start 07/12/19 at 11:30; Stop 07/17/19 at 19:59; Status DC Potassium Chloride 20 meq/ Bicarbonate Dialysis Soln w/ out KCl 5,010 ml @ 1,000 mls/hr Q5H1M IV Last administered on 07/17/19at 14:53; Start 07/12/19 at 11:30; Stop 07/17/19 at 19:59; Status DC Sodium Chloride 90 meq/Potassium Chloride 15 meq/ Potassium Phosphate 15 mmol/ Magnesium Sulfate 10 meq/Calcium Gluconate 15 meq/ Multivitamins 10 ml/Chromium/ Copper/Manganese/ Seleni/Zn 0.5 ml/ Total Parenteral Nutrition/Amino Acids/Dextrose/ Fat Emulsion Intravenous 1,400 ml @ 58.333 mls/ hr TPN CONT IV Last administered on 07/12/19at 22:17; Start 07/12/19 at 22:00; Stop 07/13/19 at 21:59; Status DC Cefepime HCl (Maxipime) 2 gm Q12HR IVP Last administered on 07/26/19at 20:56; Start 07/13/19 at 09:00; Stop 07/27/19 at 09:58; Status DC Daptomycin 500 mg/ Sodium Chloride 50 ml @ 100 mls/hr Q48H IV Last administered on 07/29/19at 09:57; Start 07/13/19 at 08:30; Stop 07/29/19 at 10:07; Status DC Lidocaine HCl (Buffered Lidocaine 1%) 3 ml 1X ONCE INJ Last administered on 07/13/19at 10:27; Start 07/13/19 at 10:30; Stop 07/13/19 at 10:31; Status DC Potassium Phosphate 20 mmol/ Sodium Chloride 106.6667 ml @ 51.667 m... 1X ONCE IV Last administered on 07/13/19at 12:51; Start 07/13/19 at 13:00; Stop 07/13/19 at 15:03; Status DC Sodium Chloride 90 meq/Potassium Chloride 15 meq/ Potassium Phosphate 18 mmol/ Magnesium Sulfate 8 meq/Calcium Gluconate 15 meq/ Multivitamins 10 ml/Chromium/ Copper/Manganese/ Seleni/Zn 0.5 ml/ Total Parenteral Nutrition/Amino Acids/Dextrose/ Fat Emulsion Intravenous 1,400 ml @ 58.333 mls/ hr TPN CONT IV Last administered on 07/13/19at 22:16; Start 07/13/19 at 22:00; Stop 07/14/19 at 21:59; Status DC Potassium Chloride 20 meq/ Bicarbonate Dialysis Soln w/ out KCl 5,010 ml @ 1,000 mls/hr Q5H1M IV Last administered on 07/17/19at 14:54; Start 07/13/19 at 16:00; Stop 07/17/19 at 19:59; Status DC Multi-Ingred Cream/Lotion/Oil/ Oint (Artificial Tears Eye Ointment) 1 ramu PRN Q1HR PRN OU DRY EYE, 2nd choice Last administered on 08/01/19at 08:19; Start 07/13/19 at 17:30; Stop 09/21/19 at 14:39; Status DC Sodium Chloride 90 meq/Potassium Chloride 15 meq/ Potassium Phosphate 18 mmol/ Magnesium Sulfate 8 meq/Calcium Gluconate 15 meq/ Multivitamins 10 ml/Chromium/ Copper/Manganese/ Seleni/Zn 0.5 ml/ Total Parenteral Nutrition/Amino Acids/Dextrose/ Fat Emulsion Intravenous 1,400 ml @ 58.333 mls/ hr TPN CONT IV Last administered on 07/14/19at 22:00; Start 07/14/19 at 22:00; Stop 07/15/19 at 21:59; Status DC Albumin Human 500 ml @ 125 mls/hr 1X ONCE IV ; Start 07/14/19 at 14:15; Stop 07/14/19 at 18:14; Status DC Sodium Chloride 90 meq/Potassium Chloride 15 meq/ Potassium Phosphate 18 mmol/ Magnesium Sulfate 8 meq/Calcium Gluconate 15 meq/ Multivitamins 10 ml/Chromium/ Copper/Manganese/ Seleni/Zn 0.5 ml/ Insulin Human Regular 10 unit/ Total Parenteral Nutrition/Amino Acids/Dextrose/ Fat Emulsion Intravenous 1,400 ml @ 58.333 mls/ hr TPN CONT IV Last administered on 07/15/19at 21:43; Start at 22:00; Stop 07/16/19 at 21:59; Status DC Lidocaine HCl (Buffered Lidocaine 1%) 3 ml STK-MED ONCE .ROUTE ; Start 07/13/19 at 10:00; Stop 07/15/19 at 13:57; Status DC Midazolam HCl 100 mg/Sodium Chloride 100 ml @ 7 mls/hr CONT PRN IV SEE PROTOCOL Last administered on 07/27/19at 15:35; Start 07/16/19 at 16:00; Stop 09/21/19 at 14:38; Status DC Sodium Chloride 90 meq/Potassium Chloride 15 meq/ Potassium Phosphate 18 mmol/ Magnesium Sulfate 8 meq/Calcium Gluconate 15 meq/ Multivitamins 10 ml/Chromium/ Copper/Manganese/ Seleni/Zn 0.5 ml/ Insulin Human Regular 15 unit/ Total Parenteral Nutrition/Amino Acids/Dextrose/ Fat Emulsion Intravenous 1,400 ml @ 58.333 mls/ hr TPN CONT IV Last administered on 07/16/19at 20:34; Start 07/16/19 at 22:00; Stop 07/17/19 at 21:59; Status DC Info (Icu Electrolyte Protocol) 1 ea CONT PRN PRN MC PER PROTOCOL; Start 07/17/19 at 13:15 Sodium Chloride 90 meq/Potassium Chloride 15 meq/ Potassium Phosphate 18 mmol/ Magnesium Sulfate 8 meq/Calcium Gluconate 15 meq/ Multivitamins 10 ml/Chromium/ Copper/Manganese/ Seleni/Zn 0.5 ml/ Insulin Human Regular 15 unit/ Total Parenteral Nutrition/Amino Acids/Dextrose/ Fat Emulsion Intravenous 1,400 ml @ 58.333 mls/ hr TPN CONT IV Last administered on 07/17/19at 22:05; Start 07/17/19 at 22:00; Stop 07/18/19 at 21:59; Status DC Potassium Chloride 15 meq/ Bicarbonate Dialysis Soln w/ out KCl 5,007.5 ml @ 1,000 mls/ hr Q5H1M IV Last administered on 07/20/19at 18:14; Start 07/17/19 at 20:00; Stop 07/21/19 at 13:08; Status DC Potassium Chloride 15 meq/ Bicarbonate Dialysis Soln w/ out KCl 5,007.5 ml @ 1,000 mls/ hr Q5H1M IV Last administered on 07/20/19at 18:14; Start 07/17/19 at 20:00; Stop 07/21/19 at 13:08; Status DC Potassium Chloride 15 meq/ Bicarbonate Dialysis Soln w/ out KCl 5,007.5 ml @ 1,000 mls/ hr Q5H1M IV Last administered on 07/20/19at 18:14; Start 07/17/19 at 20:00; Stop 07/21/19 at 13:08; Status DC Iohexol (Omnipaque 240 Mg/ml) 30 ml 1X ONCE PO Last administered on 07/18/19at 11:30; Start 07/18/19 at 11:30; Stop 07/18/19 at 11:33; Status DC Info (CONTRAST GIVEN -- Rx MONITORING) 1 each PRN DAILY PRN MC SEE COMMENTS; Start 07/18/19 at 11:45; Stop 07/20/19 at 11:44; Status DC Sodium Chloride 90 meq/Potassium Chloride 15 meq/ Potassium Phosphate 18 mmol/ Magnesium Sulfate 8 meq/Calcium Gluconate 15 meq/ Multivitamins 10 ml/Chromium/ Copper/Manganese/ Seleni/Zn 0.5 ml/ Insulin Human Regular 15 unit/ Total Parenteral Nutrition/Amino Acids/Dextrose/ Fat Emulsion Intravenous 1,400 ml @ 58.333 mls/ hr TPN CONT IV Last administered on 07/18/19at 21:47; Start 07/18/19 at 22:00; Stop 07/19/19 at 21:59; Status DC Sodium Chloride 90 meq/Potassium Chloride 15 meq/ Potassium Phosphate 18 mmol/ Magnesium Sulfate 8 meq/Calcium Gluconate 15 meq/ Multivitamins 10 ml/Chromium/ Copper/Manganese/ Seleni/Zn 0.5 ml/ Insulin Human Regular 20 unit/ Total Parenteral Nutrition/Amino Acids/Dextrose/ Fat Emulsion Intravenous 1,400 ml @ 58.333 mls/ hr TPN CONT IV Last administered on 07/19/19at 21:36; Start 07/19/19 at 22:00; Stop 07/20/19 at 21:59; Status DC Alteplase, Recombinant (Cathflo For Central Catheter Clearance) 1 mg 1X ONCE INT CAT Last administered on 07/19/19at 20:03; Start 07/19/19 at 19:30; Stop 07/19/19 at 19:46; Status DC Alteplase, Recombinant (Cathflo For Central Catheter Clearance) 1 mg 1X ONCE INT CAT Last administered on 07/19/19at 22:05; Start 07/19/19 at 22:00; Stop 07/19/19 at 22:01; Status DC Sodium Chloride 90 meq/Potassium Chloride 15 meq/ Potassium Phosphate 18 mmol/ Magnesium Sulfate 8 meq/Calcium Gluconate 15 meq/ Multivitamins 10 ml/Chromium/ Copper/Manganese/ Seleni/Zn 0.5 ml/ Insulin Human Regular 20 unit/ Total Parenteral Nutrition/Amino Acids/Dextrose/ Fat Emulsion Intravenous 1,400 ml @ 58.333 mls/ hr TPN CONT IV Last administered on 07/20/19at 21:30; Start 07/20/19 at 22:00; Stop 07/21/19 at 21:59; Status DC Dexmedetomidine HCl 400 mcg/ Sodium Chloride 100 ml @ 0 mls/hr CONT PRN IV ANXIETY / AGITATION Last administered on 09/17/19at 12:57; Start 07/21/19 at 08:15; Stop 09/17/19 at 18:31; Status DC Sodium Chloride 500 ml @ 500 mls/hr 1X PRN PRN IV ELEVATED BP, SEE COMMENTS; Start 07/21/19 at 08:15 Atropine Sulfate (ATROPINE 0.5mg SYRINGE) 0.5 mg PRN Q5MIN PRN IV SEE COMMENTS; Start 07/21/19 at 08:15 Furosemide (Lasix) 20 mg 1X ONCE IVP Last administered on 07/21/19at 08:19; Start 07/21/19 at 08:15; Stop 07/21/19 at 08:16; Status DC Lidocaine HCl (Buffered Lidocaine 1%) 3 ml STK-MED ONCE .ROUTE ; Start 07/21/19 at 08:39; Stop 07/21/19 at 08:39; Status DC Lidocaine HCl (Buffered Lidocaine 1%) 6 ml 1X ONCE INJ Last administered on 07/21/19at 09:05; Start 07/21/19 at 09:00; Stop 07/21/19 at 09:06; Status DC Sodium Chloride 90 meq/Potassium Chloride 15 meq/ Potassium Phosphate 18 mmol/ Magnesium Sulfate 8 meq/Calcium Gluconate 15 meq/ Multivitamins 10 ml/Chromium/ Copper/Manganese/ Seleni/Zn 0.5 ml/ Insulin Human Regular 20 unit/ Total Parenteral Nutrition/Amino Acids/Dextrose/ Fat Emulsion Intravenous 1,400 ml @ 58.333 mls/ hr TPN CONT IV Last administered on 07/21/19at 22:45; Start 07/21/19 at 22:00; Stop 07/22/19 at 21:59; Status DC Sodium Chloride 1,000 ml @ 1,000 mls/hr Q1H PRN IV hypotension; Start 07/22/19 at 07:30; Stop 07/22/19 at 13:29; Status DC Albumin Human 200 ml @ 200 mls/hr 1X PRN PRN IV Hypotension Last administered on 07/22/19at 09:36; Start 07/22/19 at 07:30; Stop 07/22/19 at 13:29; Status DC Sodium Chloride (Normal Saline Flush) 10 ml 1X PRN PRN IV AP catheter pack; Start 07/22/19 at 07:30; Stop 07/22/19 at 21:29; Status DC Sodium Chloride (Normal Saline Flush) 10 ml 1X PRN PRN IV [employer] catheter pack; Start 07/22/19 at 07:30; Stop 07/23/19 at 07:29; Status DC Sodium Chloride 1,000 ml @ 400 mls/hr Q2H30M PRN IV PATENCY; Start 07/22/19 at 07:30; Stop 07/22/19 at 19:29; Status DC Info (PHARMACY MONITORING -- do not chart) 1 each PRN DAILY PRN MC SEE COMMENTS; Start 07/22/19 at 07:30; Stop 07/22/19 at 13:02; Status DC Info (PHARMACY MONITORING -- do not chart) 1 each PRN DAILY PRN MC SEE PIPE TS; Start 07/22/19 at 07:30; Stop 07/24/19 at 12:45; Status DC Sodium Chloride 90 meq/Potassium Chloride 15 meq/ Potassium Phosphate 10 mmol/ Magnesium Sulfate 8 meq/Calcium Gluconate 15 meq/ Multivitamins 10 ml/Chromium/ Copper/Manganese/ Seleni/Zn 0.5 ml/ Insulin Human Regular 25 unit/ Total Parenteral Nutrition/Amino Acids/Dextrose/ Fat Emulsion Intravenous 1,400 ml @ 58.333 mls/ hr TPN CONT IV Last administered on 07/22/19at 22:19; Start 07/22/19 at 22:00; Stop 07/23/19 at 21:59; Status DC Heparin Sodium (Porcine) (Heparin Sodium) 5,000 unit Q12HR SQ Last administered on 08/14/19at 08:59; Start 07/22/19 at 21:00; Stop 08/14/19 at 10:05; Status DC Ondansetron HCl (Zofran) 4 mg PRN Q6HRS PRN IV NAUSEA/VOMITING; Start 07/25/19 at 07:00; Stop 07/26/19 at 06:59; Status DC Fentanyl Citrate (Fentanyl 2ml Vial) 25 mcg PRN Q5MIN PRN IV MILD PAIN 1-3; Start 07/25/19 at 07:00; Stop 07/26/19 at 06:59; Status DC Fentanyl Citrate (Fentanyl 2ml Vial) 50 mcg PRN Q5MIN PRN IV MODERATE TO SEVERE PAIN; Start 07/25/19 at 07:00; Stop 07/26/19 at 06:59; Status DC Ringer's Solution 1,000 ml @ 30 mls/hr Q24H IV ; Start 07/25/19 at 07:00; Stop 07/25/19 at 18:59; Status DC Lidocaine HCl (Xylocaine-Mpf 1% 2ml Vial) 2 ml PRN 1X PRN ID PRIOR TO IV START; Start 07/25/19 at 07:00; Stop 07/26/19 at 06:59; Status DC Prochlorperazine Edisylate (Compazine) 5 mg PACU PRN PRN IV NAUSEA, MRX1; Start 07/25/19 at 07:00; Stop 07/26/19 at 06:59; Status DC Sodium Chloride 1,000 ml @ 1,000 mls/hr Q1H PRN IV hypotension; Start 07/23/19 at 09:10; Stop 07/23/19 at 15:09; Status DC Albumin Human 200 ml @ 200 mls/hr 1X PRN PRN IV Hypotension Last administered on 07/23/19at 10:10; Start 07/23/19 at 09:15; Stop 07/23/19 at 15:14; Status DC Sodium Chloride 1,000 ml @ 400 mls/hr Q2H30M PRN IV PATENCY; Start 07/23/19 at 09:10; Stop 07/23/19 at 21:09; Status DC Info (PHARMACY MONITORING -- do not chart) 1 each PRN DAILY PRN MC SEE COMMENT S; Start 07/23/19 at 09:15; Stop 07/24/19 at 12:45; Status DC Info (PHARMACY MONITORING -- do not chart) 1 each PRN DAILY PRN MC SEE COMMENTS; Start 07/23/19 at 09:15; Stop 07/24/19 at 12:45; Status DC Sodium Chloride 90 meq/Potassium Chloride 15 meq/ Potassium Phosphate 10 mmol/ Magnesium Sulfate 8 meq/Calcium Gluconate 15 meq/ Multivitamins 10 ml/Chromium/ Copper/Manganese/ Seleni/Zn 0.5 ml/ Insulin Human Regular 25 unit/ Total Parenteral Nutrition/Amino Acids/Dextrose/ Fat Emulsion Intravenous 1,400 ml @ 58.333 mls/ hr TPN CONT IV Last administered on 07/23/19at 22:10; Start 07/23/19 at 22:00; Stop 07/24/19 at 21:59; Status DC Magnesium Sulfate 50 ml @ 25 mls/hr PRN DAILY PRN IV for Mag < 1.7 on am labs Last administered on 10/06/19at 10:57; Start 07/24/19 at 09:15 Sodium Chloride 90 meq/Potassium Chloride 15 meq/ Potassium Phosphate 10 mmol/ Magnesium Sulfate 8 meq/Calcium Gluconate 15 meq/ Multivitamins 10 ml/Chromium/ Copper/Manganese/ Seleni/Zn 0.5 ml/ Insulin Human Regular 25 unit/ Total Parenteral Nutrition/Amino Acids/Dextrose/ Fat Emulsion Intravenous 1,400 ml @ 58.333 mls/ hr TPN CONT IV Last administered on 07/24/19at 21:20; Start 07/24/19 at 22:00; Stop 07/25/19 at 21:59; Status DC Sodium Chloride 1,000 ml @ 1,000 mls/hr Q1H PRN IV hypotension; Start 07/24/19 at 12:23; Stop 07/24/19 at 18:22; Status DC Albumin Human 200 ml @ 200 mls/hr 1X ONCE IV Last administered on 07/24/19at 13:34; Start 07/24/19 at 12:30; Stop 07/24/19 at 13:29; Status DC Diphenhydramine HCl (Benadryl) 25 mg 1X PRN PRN IV ITCHING; Start 07/24/19 at 12:30; Stop 07/25/19 at 12:29; Status DC Diphenhydramine HCl (Benadryl) 25 mg 1X PRN PRN IV ITCHING; Start 07/24/19 at 12:30; Stop 07/25/19 at 12:29; Status DC Info (PHARMACY MONITORING -- do not chart) 1 each PRN DAILY PRN MC SEE COM MENTS; Start 07/24/19 at 12:30; Status Cancel Bupivacaine HCl/ Epinephrine Bitart (Sensorcain-Epi 0.5%-1:[id number] Mpf) 30 ml STK-MED ONCE .ROUTE Last administered on 07/25/19at 11:44; Start 07/25/19 at 11:00; Stop 07/25/19 at 11:01; Status DC Cellulose (Surgicel Fibrillar 1x2) 1 each STK-MED ONCE .ROUTE ; Start 07/25/19 at 11:00; Stop 07/25/19 at 11:01; Status DC Sodium Chloride 90 meq/Potassium Chloride 15 meq/ Potassium Phosphate 10 mmol/ Magnesium Sulfate 12 meq/Calcium Gluconate 15 meq/ Multivitamins 10 ml/Chromium/ Copper/Manganese/ Seleni/Zn 0.5 ml/ Insulin Human Regular 25 unit/ Total Parenteral Nutrition/Amino Acids/Dextrose/ Fat Emulsion Intravenous 1,400 ml @ 58.333 mls/ hr TPN CONT IV Last administered on 07/25/19at 22:24; Start 07/25/19 at 22:00; Stop 07/26/19 at 21:59; Status DC Propofol 20 ml @ As Directed STK-MED ONCE IV ; Start 07/25/19 at 11:07; Stop 07/25/19 at 11:07; Status DC Cellulose (Surgicel Hemostat 4x8) 1 each STK-MED ONCE .ROUTE Last administered on 07/25/19at 11:44; Start 07/25/19 at 11:55; Stop 07/25/19 at 11:56; Status DC Sevoflurane (Ultane) 60 ml STK-MED ONCE IH ; Start 07/25/19 at 12:46; Stop 07/25/19 at 12:46; Status DC Sodium Chloride 1,000 ml @ 1,000 mls/hr Q1H PRN IV hypotension; Start 07/25/19 at 13:51; Stop 07/25/19 at 19:50; Status DC Albumin Human 200 ml @ 200 mls/hr 1X PRN PRN IV Hypotension Last administered on 07/25/19at 14:51; Start 07/25/19 at 14:00; Stop 07/25/19 at 19:59; Status DC Diphenhydramine HCl (Benadryl) 25 mg 1X PRN PRN IV ITCHING; Start 07/25/19 at 14:00; Stop 07/26/19 at 13:59; Status DC Diphenhydramine HCl (Benadryl) 25 mg 1X PRN PRN IV ITCHING; Start 07/25/19 at 14:00; Stop 07/26/19 at 13:59; Status DC Sodium Chloride 1,000 ml @ 400 mls/hr Q2H30M PRN IV PATENCY; Start 07/25/19 at 13:51; Stop 07/26/19 at 01:50; Status DC Info (PHARMACY MONITORING -- do not chart) 1 each PRN DAILY PRN MC SEE COMMENTS; Start 07/25/19 at 14:00; Stop 07/28/19 at 08:16; Status DC Heparin Sodium (Porcine) (Hep Lock Adult) 500 unit STK-MED ONCE IVP ; Start 07/26/19 at 09:29; Stop 07/26/19 at 09:30; Status DC Sodium Chloride 1,000 ml @ 1,000 mls/hr Q1H PRN IV hypotension; Start 07/26/19 at 10:43; Stop 07/26/19 at 16:42; Status DC Sodium Chloride 1,000 ml @ 400 mls/hr Q2H30M PRN IV PATENCY; Start 07/26/19 at 10:43; Stop 07/26/19 at 22:42; Status DC Info (PHARMACY MONITORING -- do not chart) 1 each PRN DAILY PRN MC SEE COMMENTS; Start 07/26/19 at 10:45; Status UNV Info (PHARMACY MONITORING -- do not chart) 1 each PRN DAILY PRN MC SEE COMMENTS; Start 07/26/19 at 10:45; Status UNV Sodium Chloride 90 meq/Potassium Chloride 15 meq/ Magnesium Sulfate 12 meq/Calcium Gluconate 15 meq/ Multivitamins 10 ml/Chromium/ Copper/Manganese/ Seleni/Zn 0.5 ml/ Insulin Human Regular 25 unit/ Total Parenteral Nutrition/Amino Acids/Dextrose/ Fat Emulsion Intravenous 1,400 ml @ 58.333 mls/ hr TPN CONT IV Last administered on 07/26/19at 22:13; Start 07/26/19 at 22:00; Stop 07/27/19 at 21:59; Status DC Sodium Chloride 1,000 ml @ 1,000 mls/hr Q1H PRN IV hypotension; Start 07/27/19 at 07:50; Stop 07/27/19 at 13:49; Status DC Albumin Human 200 ml @ 200 mls/hr 1X ONCE IV ; Start 07/27/19 at 08:00; Stop 07/27/19 at 08:53; Status DC Diphenhydramine HCl (Benadryl) 25 mg 1X PRN PRN IV ITCHING; Start 07/27/19 at 08:00; Stop 07/28/19 at 07:59; Status DC Diphenhydramine HCl (Benadryl) 25 mg 1X PRN PRN IV ITCHING; Start 07/27/19 at 08:00; Stop 07/28/19 at 07:59; Status DC Info (PHARMACY MONITORING -- do not chart) 1 each PRN DAILY PRN MC SEE COMMENTS; Start 07/27/19 at 08:00; Stop 07/28/19 at 08:16; Status DC Albumin Human 50 ml @ 50 mls/hr 1X ONCE IV ; Start 07/27/19 at 08:53; Stop 07/27/19 at 08:56; Status DC Albumin Human 200 ml @ 50 mls/hr PRN 1X PRN IV HYPOTENSION Last administered on 08/02/19at 11:54; Start 07/27/19 at 09:00; Stop 09/08/19 at 11:14; Status DC Meropenem 500 mg/ Sodium Chloride 50 ml @ 100 mls/hr Q12H IV Last administered on 08/16/19at 10:45; Start 07/27/19 at 10:00; Stop 08/16/19 at 12:37; Status DC Sodium Chloride 90 meq/Magnesium Sulfate 12 meq/ Calcium Gluconate 15 meq/ Multivitamins 10 ml/Chromium/ Copper/Manganese/ Seleni/Zn 0.5 ml/ Insulin Human Regular 25 unit/ Total Parenteral Nutrition/Amino Acids/Dextrose/ Fat Emulsion Intravenous 1,400 ml @ 58.333 mls/ hr TPN CONT IV Last administered on 07/27/19at 21:41; Start 07/27/19 at 22:00; Stop 07/28/19 at 21:59; Status DC Sodium Chloride 1,000 ml @ 1,000 mls/hr Q1H PRN IV hypotension; Start 07/28/19 at 07:58; Stop 07/28/19 at 13:57; Status DC Albumin Human 200 ml @ 200 mls/hr 1X PRN PRN IV Hypotension Last administered on 07/28/19at 09:30; Start 07/28/19 at 08:00; Stop 07/28/19 at 13:59; Status DC Sodium Chloride 1,000 ml @ 400 mls/hr Q2H30M PRN IV PATENCY; Start 07/28/19 at 07:58; Stop 07/28/19 at 19:57; Status DC Info (PHARMACY MONITORING -- do not chart) 1 each PRN DAILY PRN MC SEE COMMENTS; Start 07/28/19 at 08:00; Status Cancel Info (PHARMACY MONITORING -- do not chart) 1 each PRN DAILY PRN MC SEE COMMENTS; Start 07/28/19 at 08:15; Status UNV Sodium Chloride 90 meq/Potassium Phosphate 5 mmol/ Magnesium Sulfate 12 meq/Calcium Gluconate 15 meq/ Multivitamins 10 ml/Chromium/ Copper/Manganese/ Seleni/Zn 0.5 ml/ Insulin Human Regular 30 unit/ Total Parenteral Nutrition/Amino Acids/Dextrose/ Fat Emulsion Intravenous 1,400 ml @ 58.333 mls/ hr TPN CONT IV Last administered on 07/28/19at 22:08; Start 07/28/19 at 22:00; Stop 07/29/19 at 21:59; Status DC Linezolid/Dextrose 300 ml @ 300 mls/hr Q12HR IV Last administered on 08/08/19at 20:40; Start 07/29/19 at 11:00; Stop 08/09/19 at 08:10; Status DC Sodium Chloride 90 meq/Potassium Phosphate 15 mmol/ Magnesium Sulfate 12 meq/Calcium Gluconate 15 meq/ Multivitamins 10 ml/Chromium/ Copper/Manganese/ Seleni/Zn 0.5 ml/ Insulin Human Regular 30 unit/ Total Parenteral Nutrition/Amino Acids/Dextrose/ Fat Emulsion Intravenous 1,400 ml @ 58.333 mls/ hr TPN CONT IV Last administered on 07/29/19at 21:49; Start 07/29/19 at 22:00; Stop 07/30/19 at 21:59; Status DC Sodium Chloride 90 meq/Potassium Phosphate 15 mmol/ Magnesium Sulfate 12 meq/Calcium Gluconate 15 meq/ Multivitamins 10 ml/Chromium/ Copper/Manganese/ Seleni/Zn 0.5 ml/ Insulin Human Regular 40 unit/ Total Parenteral Nutrition/Amino Acids/Dextrose/ Fat Emulsion Intravenous 1,400 ml @ 58.333 mls/ hr TPN CONT IV Last administered on 07/30/19at 21:21; Start 07/30/19 at 22:00; Stop 07/31/19 at 21:59; Status DC Sodium Chloride 1,000 ml @ 1,000 mls/hr Q1H PRN IV hypotension; Start 07/30/19 at 13:26; Stop 07/30/19 at 19:25; Status DC Albumin Human 200 ml @ 200 mls/hr 1X PRN PRN IV Hypotension Last administered on 07/30/19at 15:00; Start 07/30/19 at 13:30; Stop 07/30/19 at 19:29; Status DC Sodium Chloride (Normal Saline Flush) 10 ml 1X PRN PRN IV AP catheter pack; Start 07/30/19 at 13:30; Stop 07/31/19 at 13:29; Status DC Sodium Chloride (Normal Saline Flush) 10 ml 1X PRN PRN IV [employer] catheter pack; Start 07/30/19 at 13:30; Stop 07/31/19 at 13:29; Status DC Sodium Chloride 1,000 ml @ 400 mls/hr Q2H30M PRN IV PATENCY; Start 07/30/19 at 13:26; Stop 07/31/19 at 01:25; Status DC Info (PHARMACY MONITORING -- do not chart) 1 each PRN DAILY PRN MC SEE COMMENTS; Start 07/30/19 at 13:30; Stop 07/30/19 at 13:33; Status DC Info (PHARMACY MONITORING -- do not chart) 1 each PRN DAILY PRN MC SEE COMMENTS; Start 07/30/19 at 13:30; Stop 07/30/19 at 13:34; Status DC Sodium Chloride 90 meq/Potassium Phosphate 19 mmol/ Magnesium Sulfate 12 meq/Calcium Gluconate 15 meq/ Multivitamins 10 ml/Chromium/ Copper/Manganese/ Seleni/Zn 0.5 ml/ Insulin Human Regular 40 unit/ Total Parenteral Nutrition/Amino Acids/Dextrose/ Fat Emulsion Intravenous 1,400 ml @ 58.333 mls/ hr TPN CONT IV Last administered on 07/31/19at 21:54; Start 07/31/19 at 22:00; Stop 08/01/19 at 21:59; Status DC Sodium Chloride 1,000 ml @ 1,000 mls/hr Q1H PRN IV hypotension; Start 08/01/19 at 09:35; Stop 08/01/19 at 15:34; Status DC Albumin Human 200 ml @ 200 mls/hr 1X PRN PRN IV Hypotension; Start 08/01/19 at 09:45; Stop 08/01/19 at 15:44; Status DC Diphenhydramine HCl (Benadryl) 25 mg 1X PRN PRN IV ITCHING; Start 08/01/19 at 09:45; Stop 08/02/19 at 09:44; Status DC Diphenhydramine HCl (Benadryl) 25 mg 1X PRN PRN IV ITCHING; Start 08/01/19 at 09:45; Stop 08/02/19 at 09:44; Status DC Sodium Chloride 1,000 ml @ 400 mls/hr Q2H30M PRN IV PATENCY; Start 08/01/19 at 09:35; Stop 08/01/19 at 21:34; Status DC Info (PHARMACY MONITORING -- do not chart) 1 each PRN DAILY PRN MC SEE COMMENTS; Start 08/01/19 at 09:45; Status Cancel Sodium Chloride 100 meq/Potassium Phosphate 19 mmol/ Magnesium Sulfate 12 meq/Calcium Gluconate 15 meq/ Multivitamins 10 ml/Chromium/ Copper/Manganese/ Seleni/Zn 0.5 ml/ Insulin Human Regular 40 unit/ Potassium Chloride 20 meq/ Total Parenteral Nutrition/Amino Acids/Dextrose/ Fat Emulsion Intravenous 1,400 ml @ 58.333 mls/ hr TPN CONT IV Last administered on 08/01/19at 22:02; Start 08/01/19 at 22:00; Stop 08/02/19 at 21:59; Status DC Furosemide (Lasix) 40 mg 1X ONCE IVP Last administered on 08/01/19at 14:39; Start 08/01/19 at 14:30; Stop 08/01/19 at 14:31; Status DC Metronidazole 100 ml @ 100 mls/hr Q8HRS IV Last administered on 08/09/19at 06:04; Start 08/02/19 at 10:00; Stop 08/09/19 at 08:10; Status DC Sodium Chloride 1,000 ml @ 1,000 mls/hr Q1H PRN IV hypotension; Start 08/02/19 at 08:00; Stop 08/02/19 at 13:59; Status DC Albumin Human 200 ml @ 200 mls/hr 1X PRN PRN IV Hypotension; Start 08/02/19 at 08:00; Stop 08/02/19 at 13:59; Status DC Sodium Chloride 1,000 ml @ 400 mls/hr Q2H30M PRN IV PATENCY; Start 08/02/19 at 08:00; Stop 08/02/19 at 19:59; Status DC Info (PHARMACY MONITORING -- do not chart) 1 each PRN DAILY PRN MC SEE COMMENTS; Start 08/02/19 at 11:30; Status UNV Info (PHARMACY MONITORING -- do not chart) 1 each PRN DAILY PRN MC SEE COMMENTS; Start 08/02/19 at 11:30; Stop 08/04/19 at 12:13; Status DC Sodium Chloride 100 meq/Potassium Phosphate 19 mmol/ Magnesium Sulfate 12 meq/Calcium Gluconate 15 meq/ Multivitamins 10 ml/Chromium/ Copper/Manganese/ Seleni/Zn 0.5 ml/ Insulin Human Regular 40 unit/ Potassium Chloride 20 meq/ Total Parenteral Nutrition/Amino Acids/Dextrose/ Fat Emulsion Intravenous 1,400 ml @ 58.333 mls/ hr TPN CONT IV Last administered on 08/02/19at 21:52; Start 08/02/19 at 22:00; Stop 08/03/19 at 21:59; Status DC Sodium Chloride (Normal Saline Flush) 10 ml QSHIFT PRN IV AFTER MEDS AND BLOOD DRAWS; Start 08/02/19 at 15:00; Stop 08/30/19 at 11:27; Status DC Sodium Chloride (Normal Saline Flush) 10 ml PRN Q5MIN PRN IV AFTER MEDS AND BLOOD DRAWS; Start 08/02/19 at 15:00 Sodium Chloride (Normal Saline Flush) 20 ml PRN Q5MIN PRN IV AFTER MEDS AND BLOOD DRAWS; Start 08/02/19 at 15:00 Sodium Chloride 100 meq/Potassium Phosphate 19 mmol/ Magnesium Sulfate 12 meq/Calcium Gluconate 15 meq/ Multivitamins 10 ml/Chromium/ Copper/Manganese/ Seleni/Zn 0.5 ml/ Insulin Human Regular 40 unit/ Potassium Chloride 20 meq/ Total Parenteral Nutrition/Amino Acids/Dextrose/ Fat Emulsion Intravenous 1,400 ml @ 58.333 mls/ hr TPN CONT IV Last administered on 08/03/19at 21:20; Start 08/03/19 at 22:00; Stop 08/04/19 at 21:59; Status DC Lidocaine HCl (Buffered Lidocaine 1%) 3 ml STK-MED ONCE .ROUTE ; Start 08/03/19 at 13:16; Stop 08/03/19 at 13:16; Status DC Lidocaine HCl (Buffered Lidocaine 1%) 6 ml 1X ONCE INJ Last administered on 08/03/19at 13:45; Start 08/03/19 at 13:30; Stop 08/03/19 at 13:31; Status DC Albumin Human 100 ml @ 100 mls/hr 1X ONCE IV Last administered on 08/03/19at 15:41; Start 08/03/19 at 15:00; Stop 08/03/19 at 15:59; Status DC Albumin Human 50 ml @ 50 mls/hr 1X ONCE IV Last administered on 08/03/19at 15:00; Start 08/03/19 at 15:00; Stop 08/03/19 at 15:59; Status DC Info (PHARMACY MONITORING -- do not chart) 1 each PRN DAILY PRN MC SEE COMMENTS; Start 08/04/19 at 11:30; Status Cancel Info (PHARMACY MONITORING -- do not chart) 1 each PRN DAILY PRN MC SEE COMMENTS; Start 08/04/19 at 11:30; Status UNV Sodium Chloride 100 meq/Potassium Phosphate 10 mmol/ Magnesium Sulfate 12 meq/Calcium Gluconate 15 meq/ Multivitamins 10 ml/Chromium/ Copper/Manganese/ Seleni/Zn 0.5 ml/ Insulin Human Regular 35 unit/ Potassium Chloride 20 meq/ Total Parenteral Nutrition/Amino Acids/Dextrose/ Fat Emulsion Intravenous 1,400 ml @ 58.333 mls/ hr TPN CONT IV Last administered on 08/04/19at 22:10; Start 08/04/19 at 22:00; Stop 08/05/19 at 21:59; Status DC Sodium Chloride 100 meq/Potassium Phosphate 5 mmol/ Magnesium Sulfate 12 meq/Calcium Gluconate 15 meq/ Multivitamins 10 ml/Chromium/ Copper/Manganese/ Seleni/Zn 0.5 ml/ Insulin Human Regular 35 unit/ Potassium Chloride 20 meq/ Total Parenteral Nutrition/Amino Acids/Dextrose/ Fat Emulsion Intravenous 1,400 ml @ 58.333 mls/ hr TPN CONT IV Last administered on 08/05/19at 22:59; Start 08/05/19 at 22:00; Stop 08/06/19 at 21:59; Status DC Sodium Chloride 1,000 ml @ 1,000 mls/hr Q1H PRN IV hypotension; Start 08/06/19 at 08:27; Stop 08/06/19 at 14:26; Status DC Albumin Human 200 ml @ 200 mls/hr 1X PRN PRN IV Hypotension Last administered on 08/06/19at 09:18; Start 08/06/19 at 08:30; Stop 08/06/19 at 14:29; Status DC Sodium Chloride 1,000 ml @ 400 mls/hr Q2H30M PRN IV PATENCY; Start 08/06/19 at 08:27; Stop 08/06/19 at 20:26; Status DC Info (PHARMACY MONITORING -- do not chart) 1 each PRN DAILY PRN MC SEE COMMENTS; Start 08/06/19 at 08:30; Status Cancel Info (PHARMACY MONITORING -- do not chart) 1 each PRN DAILY PRN MC SEE COMMENTS; Start 08/06/19 at 08:30; Stop 08/14/19 at 13:10; Status DC Sodium Chloride 100 meq/Potassium Chloride 40 meq/ Magnesium Sulfate 15 meq/Calcium Gluconate 15 meq/ Multivitamins 10 ml/Chromium/ Copper/Manganese/ Seleni/Zn 0.5 ml/ Insulin Human Regular 35 unit/ Total Parenteral Nutrit ion/Amino Acids/Dextrose/ Fat Emulsion Intravenous 1,400 ml @ 58.333 mls/ hr TPN CONT IV Last administered on 08/06/19at 22:00; Start 08/06/19 at 22:00; Stop 08/07/19 at 21:59; Status DC Potassium Chloride/Water 100 ml @ 100 mls/hr 1X ONCE IV Last administered on 08/06/19at 17:28; Start 08/06/19 at 14:45; Stop 08/06/19 at 15:44; Status DC Sodium Chloride 100 meq/Potassium Chloride 40 meq/ Magnesium Sulfate 15 meq/Calcium Gluconate 15 meq/ Multivitamins 10 ml/Chromium/ Copper/Manganese/ Seleni/Zn 0.5 ml/ Insulin Human Regular 35 unit/ Total Parenteral Nutrition/Amino Acids/Dextrose/ Fat Emulsion Intravenous 1,400 ml @ 58.333 mls/ hr TPN CONT IV Last administered on 08/07/19at 22:46; Start 08/07/19 at 22:00; Stop 08/08/19 at 21:59; Status DC Sodium Chloride 100 meq/Potassium Chloride 40 meq/ Magnesium Sulfate 20 meq/Calcium Gluconate 15 meq/ Multivitamins 10 ml/Chromium/ Copper/Manganese/ Seleni/Zn 0.5 ml/ Insulin Human Regular 35 unit/ Total Parenteral Nutrition/Amino Acids/Dextrose/ Fat Emulsion Intravenous 1,400 ml @ 58.333 mls/ hr TPN CONT IV Last administered on 08/08/19at 22:31; Start 08/08/19 at 22:00; Stop 08/09/19 at 21:59; Status DC Fentanyl Citrate (Fentanyl 2ml Vial) 50 mcg PRN Q2HR PRN IVP PAIN Last administered on 08/15/19at 13:32; Start 08/08/19 at 21:00; Stop 08/16/19 at 12:53; Status DC Fentanyl Citrate (Fentanyl 2ml Vial) 25 mcg PRN Q2HR PRN IVP PAIN; Start 08/08/19 at 21:00; Stop 08/16/19 at 12:54; Status DC Enoxaparin Sodium (Lovenox 100mg Syringe) 100 mg Q12HR SQ ; Start 08/09/19 at 21:00; Status UNV Amino Acids/ Glycerin/ Electrolytes 1,000 ml @ 75 mls/hr [id number] IV ; Start 08/08/19 at 21:15; Status UNV Sodium Chloride 1,000 ml @ 1,000 mls/hr Q1H PRN IV hypotension; Start 08/09/19 at 07:56; Stop 08/09/19 at 13:55; Status DC Albumin Human 200 ml @ 200 mls/hr 1X PRN PRN IV Hypotension Last administered on 08/09/19at 08:40; Start 08/09/19 at 08:00; Stop 08/09/19 at 13:59; Status DC Sodium Chloride 1,000 ml @ 400 mls/hr Q2H30M PRN IV PATENCY; Start 08/09/19 at 07:56; Stop 08/09/19 at 19:55; Status DC Info (PHARMACY MONITORING -- do not chart) 1 each PRN DAILY PRN MC SEE COMMENTS; Start 08/09/19 at 08:00; Status UNV Info (PHARMACY MONITORING -- do not chart) 1 each PRN DAILY PRN MC SEE COMMENTS; Start 08/09/19 at 08:00; Status UNV Daptomycin 430 mg/ Sodium Chloride 50 ml @ 100 mls/hr Q24H IV Last administered on 08/09/19at 12:35; Start 08/09/19 at 09:00; Stop 08/09/19 at 12:49; Status DC Sodium Chloride 100 meq/Potassium Chloride 40 meq/ Magnesium Sulfate 20 meq/Calcium Gluconate 15 meq/ Multivitamins 10 ml/Chromium/ Copper/Manganese/ Seleni/Zn 0.5 ml/ Insulin Human Regular 35 unit/ Total Parenteral Nutrition/Amino Acids/Dextrose/ Fat Emulsion Intravenous 1,400 ml @ 58.333 mls/ hr TPN CONT IV Last administered on 08/09/19at 21:26; Start 08/09/19 at 22:00; Stop 08/10/19 at 21:59; Status DC Daptomycin 430 mg/ Sodium Chloride 50 ml @ 100 mls/hr Q48H IV ; Start 08/11/19 at 09:00; Stop 08/10/19 at 11:55; Status DC Sodium Chloride 100 meq/Potassium Chloride 40 meq/ Magnesium Sulfate 20 meq/Calcium Gluconate 15 meq/ Multivitamins 10 ml/Chromium/ Copper/Manganese/ Seleni/Zn 0.5 ml/ Insulin Human Regular 35 unit/ Total Parenteral Nutrition/Amino Acids/Dextrose/ Fat Emulsion Intravenous 1,400 ml @ 58.333 mls/ hr TPN CONT IV Last administered on 08/10/19at 22:27; Start 08/10/19 at 22:00; Stop 08/11/19 at 21:59; Status DC Daptomycin 430 mg/ Sodium Chloride 50 ml @ 100 mls/hr Q24H IV Last administered on 08/12/19at 15:07; Start 08/10/19 at 13:00; Stop 08/13/19 at 13:15; Status DC Sodium Chloride 100 meq/Potassium Chloride 40 meq/ Magnesium Sulfate 20 meq/Calcium Gluconate 10 meq/ Multivitamins 10 ml/Chromium/ Copper/Manganese/ Seleni/Zn 0.5 ml/ Insulin Human Regular 35 unit/ Total Parenteral Nutrition/Amino Acids/Dextrose/ Fat Emulsion Intravenous 1,400 ml @ 58.333 mls/ hr TPN CONT IV Last administered on 08/12/19at 00:06; Start 08/11/19 at 22:00; Stop 08/12/19 at 21:59; Status DC Alteplase, Recombinant (Cathflo For Central Catheter Clearance) 1 mg 1X ONCE INT CAT Last administered on 08/12/19at 11:44; Start 08/12/19 at 10:45; Stop 08/12/19 at 10:46; Status DC Ondansetron HCl (Zofran) 4 mg PRN Q6HRS PRN IV NAUSEA/VOMITING; Start 08/15/19 at 07:00; Stop 08/16/19 at 06:59; Status DC Fentanyl Citrate (Fentanyl 2ml Vial) 25 mcg PRN Q5MIN PRN IV MILD PAIN 1-3; Start 08/15/19 at 07:00; Stop 08/16/19 at 06:59; Status DC Fentanyl Citrate (Fentanyl 2ml Vial) 50 mcg PRN Q5MIN PRN IV MODERATE TO SEVERE PAIN Last administered on 08/15/19at 10:17; Start 08/15/19 at 07:00; Stop 08/16/19 at 06:59; Status DC Ringer's Solution 1,000 ml @ 30 mls/hr Q24H IV ; Start 08/15/19 at 07:00; Stop 08/15/19 at 18:59; Status DC Lidocaine HCl (Xylocaine-Mpf 1% 2ml Vial) 2 ml PRN 1X PRN ID PRIOR TO IV START; Start 08/15/19 at 07:00; Stop 08/16/19 at 06:59; Status DC Prochlorperazine Edisylate (Compazine) 5 mg PACU PRN PRN IV NAUSEA, MRX1; Start 08/15/19 at 07:00; Stop 08/16/19 at 06:59; Status DC Sodium Acetate 50 meq/Potassium Acetate 55 meq/ Magnesium Sulfate 20 meq/Calcium Gluconate 10 meq/ Multivitamins 10 ml/Chromium/ Copper/Manganese/ Seleni/Zn 0.5 ml/ Insulin Human Regular 35 unit/ Total Parenteral Nutrition/Amino Aci ds/Dextrose/ Fat Emulsion Intravenous 1,400 ml @ 58.333 mls/ hr TPN CONT IV ; Start 08/12/19 at 22:00; Stop 08/12/19 at 14:15; Status DC Sodium Acetate 50 meq/Potassium Acetate 55 meq/ Magnesium Sulfate 20 meq/Calcium Gluconate 10 meq/ Multivitamins 10 ml/Chromium/ Copper/Manganese/ Seleni/Zn 0.5 ml/ Insulin Human Regular 35 unit/ Total Parenteral Nutrition/Amino Acids/Dextrose/ Fat Emulsion Intravenous 1,800 ml @ 75 mls/hr TPN CONT IV Last administered on 08/12/19at 22:38; Start 08/12/19 at 22:00; Stop 08/13/19 at 21:59; Status DC Sodium Chloride 1,000 ml @ 1,000 mls/hr Q1H PRN IV hypotension; Start 08/12/19 at 15:31; Stop 08/12/19 at 21:30; Status DC Diphenhydramine HCl (Benadryl) 25 mg 1X PRN PRN IV ITCHING; Start 08/12/19 at 15:45; Stop 08/13/19 at 15:44; Status DC Diphenhydramine HCl (Benadryl) 25 mg 1X PRN PRN IV ITCHING; Start 08/12/19 at 15:45; Stop 08/13/19 at 15:44; Status DC Sodium Chloride 1,000 ml @ 400 mls/hr Q2H30M PRN IV PATENCY; Start 08/12/19 at 15:31; Stop 08/13/19 at 03:30; Status DC Info (PHARMACY MONITORING -- do not chart) 1 each PRN DAILY PRN MC SEE COMMENTS; Start 08/12/19 at 15:45; Stop 09/13/19 at 14:14; Status DC Sodium Acetate 50 meq/Potassium Acetate 55 meq/ Magnesium Sulfate 20 meq/Calcium Gluconate 10 meq/ Multivitamins 10 ml/Chromium/ Copper/Manganese/ Seleni/Zn 0.5 ml/ Insulin Human Regular 35 unit/ Total Parenteral Nutrition/Amino Acid s/Dextrose/ Fat Emulsion Intravenous 1,800 ml @ 75 mls/hr TPN CONT IV Last administered on 08/13/19at 22:03; Start 08/13/19 at 22:00; Stop 08/14/19 at 21:59; Status DC Daptomycin 430 mg/ Sodium Chloride 50 ml @ 100 mls/hr Q24H IV Last administered on 08/18/19at 13:00; Start 08/13/19 at 13:00; Stop 08/18/19 at 20:58; Status DC Heparin Sodium (Porcine) 1000 unit/Sodium Chloride 1,001 ml @ 1,001 mls/hr 1X ONCE IRR ; Start 08/15/19 at 06:00; Stop 08/15/19 at 06:59; Status DC Potassium Acetate 55 meq/Magnesium Sulfate 20 meq/ Calcium Gluconate 10 meq/ Multivitamins 10 ml/Chromium/ Copper/Manganese/ Seleni/Zn 0.5 ml/ Insulin Human Regular 35 unit/ Total Parenteral Nutrition/Amino Acids/Dextrose/ Fat Emulsion Intravenous 1,920 ml @ 80 mls/hr TPN CONT IV Last administered on 08/14/19at 22:10; Start 08/14/19 at 22:00; Stop 08/15/19 at 21:59; Status DC Dexamethasone Sodium Phosphate (Decadron) 4 mg STK-MED ONCE .ROUTE ; Start 08/15/19 at 10:56; Stop 08/15/19 at 10:57; Status DC Ondansetron HCl (Zofran) 4 mg STK-MED ONCE .ROUTE ; Start 08/15/19 at 10:56; Stop 08/15/19 at 10:57; Status DC Rocuronium [place] (Zemuron) 50 mg STK-MED ONCE .ROUTE ; Start 08/15/19 at 10:56; Stop 08/15/19 at 10:57; Status DC Fentanyl Citrate (Fentanyl 2ml Vial) 100 mcg STK-MED ONCE .ROUTE ; Start 08/15/19 at 10:56; Stop 08/15/19 at 10:57; Status DC Bupivacaine HCl/ Epinephrine Bitart (Sensorcain-Epi 0.5%-1:[id number] Mpf) 30 ml STK-MED ONCE .ROUTE Last administered on 08/15/19at 12:01; Start 08/15/19 at 10:58; Stop 08/15/19 at 10:58; Status DC Cellulose (Surgicel Hemostat 2x14) 1 each STK-MED ONCE .ROUTE ; Start 08/15/19 at 10:58; Stop 08/15/19 at 10:59; Status DC Iohexol (Omnipaque 300 Mg/ml) 50 ml STK-MED ONCE .ROUTE ; Start 08/15/19 at 10:58; Stop 08/15/19 at 10:59; Status DC Cellulose (Surgicel Hemostat 4x8) 1 each STK-MED ONCE .ROUTE ; Start 08/15/19 at 10:58; Stop 08/15/19 at 10:59; Status DC Bisacodyl (Dulcolax Supp) 10 mg STK-MED ONCE .ROUTE ; Start 08/15/19 at 10:59; Stop 08/15/19 at 10:59; Status DC Heparin Sodium (Porcine) 1000 unit/Sodium Chloride 1,001 ml @ 1,001 mls/hr 1X ONCE IRR ; Start 08/15/19 at 12:00; Stop 08/15/19 at 12:59; Status DC Propofol 20 ml @ As Directed STK-MED ONCE IV ; Start 08/15/19 at 11:05; Stop 08/15/19 at 11:05; Status DC Sevoflurane (Ultane) 90 ml STK-MED ONCE IH ; Start 08/15/19 at 11:05; Stop 08/15/19 at 11:05; Status DC Sevoflurane (Ultane) 60 ml STK-MED ONCE IH ; Start 08/15/19 at 12:26; Stop 08/15/19 at 12:27; Status DC Propofol 20 ml @ As Directed STK-MED ONCE IV ; Start 08/15/19 at 12:26; Stop 08/15/19 at 12:27; Status DC Phenylephrine HCl (PHENYLEPHRINE in 0.9% NACL PF) 1 mg STK-MED ONCE IV ; Start 08/15/19 at 12:34; Stop 08/15/19 at 12:34; Status DC Heparin Sodium (Porcine) (Heparin Sodium) 5,000 unit Q12HR SQ Last administered on 08/24/19at 20:57; Start 08/15/19 at 21:00; Stop 08/25/19 at 09:59; Status DC Sodium Chloride (Normal Saline Flush) 3 ml QSHIFT PRN IV AFTER MEDS AND BLOOD DRAWS; Start 08/15/19 at 13:45; Status Cancel Naloxone HCl (Narcan) 0.4 mg PRN Q2MIN PRN IV SEE INSTRUCTIONS Last administered on 09/24/19at 15:15; Start 08/15/19 at 13:45; Stop 10/19/19 at 16:00; Status DC Sodium Chloride 1,000 ml @ 25 mls/hr Q24H IV Last administered on 09/13/19at 13:37; Start 08/15/19 at 13:37; Stop 09/16/19 at 13:09; Status DC Naloxone HCl (Narcan) 0.4 mg PRN Q2MIN PRN IV SEE INSTRUCTIONS; Start 08/15/19 at 14:30; Status UNV Sodium Chloride 1,000 ml @ 25 mls/hr Q24H IV ; Start 08/15/19 at 14:30; Status UNV Hydromorphone HCl 30 ml @ 0 mls/hr CONT PRN PRN IV PER PROTOCOL Last adm inistered on 08/20/19at 16:08; Start 08/15/19 at 14:30; Stop 08/22/19 at 08:55; Status DC Potassium Acetate 55 meq/Magnesium Sulfate 20 meq/ Calcium Gluconate 10 meq/ Multivitamins 10 ml/Chromium/ Copper/Manganese/ Seleni/Zn 0.5 ml/ Insulin Human Regular 35 unit/ Total Parenteral Nutrition/Amino Acids/Dextrose/ Fat Emulsion Intravenous 1,920 ml @ 80 mls/hr TPN CONT IV Last administered on 08/15/19at 22:01; Start 08/15/19 at 22:00; Stop 08/16/19 at 21:59; Status DC Bumetanide (Bumex) 2 mg [id number] IV Last administered on 08/19/19at 13:50; Start 08/16/19 at 14:00; Stop 08/20/19 at 14:10; Status DC Meropenem 1 gm/ Sodium Chloride 100 ml @ 200 mls/hr Q8HRS IV Last administered on 09/09/19at 05:53; Start 08/16/19 at 14:00; Stop 09/09/19 at 09:31; Status DC Potassium Acetate 55 meq/Magnesium Sulfate 20 meq/ Calcium Gluconate 10 meq/ Multivitamins 10 ml/Chromium/ Copper/Manganese/ Seleni/Zn 0.5 ml/ Insulin Human Regular 35 unit/ Total Parenteral Nutrition/Amino Acids/Dextrose/ Fat Emulsion Intravenous 1,920 ml @ 80 mls/hr TPN CONT IV Last administered on 08/16/19at 22:02; Start 08/16/19 at 22:00; Stop 08/17/19 at 21:59; Status DC Hydromorphone HCl (Dilaudid Standard [employer]OR[employer] COMMENTATOR) 12 mg STK-MED ONCE IV ; Start 08/15/19 at 14:35; Stop 08/16/19 at 13:53; Status DC Artificial Tears (Artificial Tears) 1 drop PRN Q15MIN PRN OU DRY EYE Last administered on 10/11/19at 21:17; Start 08/17/19 at 05:30 Hydromorphone HCl (Dilaudid Standard SPORTS COMMENTATOR) 12 mg STK-MED ONCE IV ; Start 08/16/19 at 12:05; Stop 08/17/19 at 09:15; Status DC Potassium Acetate 65 meq/Magnesium Sulfate 20 meq/ Calcium Gluconate 10 meq/ Multivitamins 10 ml/Chromium/ Copper/Manganese/ Seleni/Zn 0.5 ml/ Insulin Human Regular 30 unit/ Total Parenteral Nutrition/Amino Acids/Dextrose/ Fat Emulsion Intravenous 1,920 ml @ 80 mls/hr TPN CONT IV Last administered on 08/17/19at 22:22; Start 08/17/19 at 22:00; Stop 08/18/19 at 21:59; Status DC Cyclobenzaprine HCl (Flexeril) 10 mg PRN Q6HRS PRN PO MUSCLE SPASMS; Start 08/18/19 at 10:45 Potassium Acetate 55 meq/Magnesium Sulfate 20 meq/ Calcium Gluconate 10 meq/ Multivitamins 10 ml/Chromium/ Copper/Manganese/ Seleni/Zn 0.5 ml/ Insulin Human Regular 30 unit/ Total Parenteral Nutrition/Amino Acids/Dextrose/ Fat Emulsion Intravenous 1,920 ml @ 80 mls/hr TPN CONT IV Last administered on 08/19/19at 01:00; Start 08/18/19 at 22:00; Stop 08/19/19 at 21:59; Status DC Magnesium Sulfate 50 ml @ 25 mls/hr 1X ONCE IV Last administered on 08/18/19at 17:18; Start 08/18/19 at 12:45; Stop 08/18/19 at 14:44; Status DC Potassium Chloride/Water 100 ml @ 100 mls/hr 1X ONCE IV Last administered on 08/19/19at 11:27; Start 08/19/19 at 12:00; Stop 08/19/19 at 12:59; Status DC Hydromorphone HCl (Dilaudid Standard SPORTS COMMENTATOR) 12 mg STK-MED ONCE IV ; Start 08/17/19 at 10:50; Stop 08/19/19 at 11:02; Status DC Hydromorphone HCl (Dilaudid Standard SPORTS COMMENTATOR) 12 mg STK-MED ONCE IV ; Start 08/18/19 at 13:47; Stop 08/19/19 at 11:03; Status DC Potassium Acetate 30 meq/Magnesium Sulfate 20 meq/ Calcium Gluconate 10 meq/ Multivitamins 10 ml/Chromium/ Copper/Manganese/ Seleni/Zn 0.5 ml/ Insulin Human Regular 30 unit/ Potassium Chloride 30 meq/ Total Parenteral Nutrition/Amino Acids/Dextrose/ Fat Emulsion Intravenous 1,920 ml @ 80 mls/hr TPN CONT IV Last administered on 08/19/19at 22:34; Start 08/19/19 at 22:00; Stop 08/20/19 at 21:59; Status DC Potassium Chloride/Water 100 ml @ 100 mls/hr Q1H IV Last administered on 08/20/19at 13:05; Start 08/20/19 at 07:00; Stop 08/20/19 at 10:59; Status DC Magnesium Sulfate 50 ml @ 25 mls/hr 1X ONCE IV Last administered on 08/20/19at 10:34; Start 08/20/19 at 10:30; Stop 08/20/19 at 12:29; Status DC Potassium Chloride 75 meq/ Magnesium Sulfate 20 meq/Calcium Gluconate 10 meq/ M ultivitamins 10 ml/Chromium/ Copper/Manganese/ Seleni/Zn 0.5 ml/ Insulin Human Regular 30 unit/ Total Parenteral Nutrition/Amino Acids/Dextrose/ Fat Emulsion Intravenous 1,920 ml @ 80 mls/hr TPN CONT IV Last administered on 08/20/19at 21:51; Start 08/20/19 at 22:00; Stop 08/21/19 at 22:00; Status DC Potassium Chloride 75 meq/ Magnesium Sulfate 20 meq/Calcium Gluconate 10 meq/ Multivitamins 10 ml/Chromium/ Copper/Manganese/ Seleni/Zn 0.5 ml/ Insulin Human Regular 25 unit/ Total Parenteral Nutrition/Amino Acids/Dextrose/ Fat Emulsion Intravenous 1,920 ml @ 80 mls/hr TPN CONT IV Last administered on 08/21/19at 22:04; Start 08/21/19 at 22:00; Stop 08/22/19 at 21:59; Status DC Hydromorphone HCl (Dilaudid) 0.4 mg PRN Q4HRS PRN IVP PAIN Last administered on 08/22/19at 10:57; Start 08/22/19 at 09:00; Stop 08/22/19 at 18:59; Status DC Micafungin Sodium 100 mg/Dextrose 100 ml @ 100 mls/hr Q24H IV Last administered on 09/13/19at 12:17; Start 08/22/19 at 11:00; Stop 09/14/19 at 09:59; Status DC Daptomycin 485 mg/ Sodium Chloride 50 ml @ 100 mls/hr Q24H IV Last administered on 08/29/19at 13:10; Start 08/22/19 at 11:00; Stop 08/30/19 at 07:44; Status DC Potassium Chloride 75 meq/ Magnesium Sulfate 15 meq/Calcium Gluconate 8 meq/ Multivitamins 10 ml/Chromium/ Copper/Manganese/ Seleni/Zn 0.5 ml/ Insulin Human Regular 25 unit/ Total Parenteral Nutrition/Amino Acids/Dextrose/ Fat Emulsion Intravenous 1,920 ml @ 80 mls/hr TPN CONT IV Last administered on 08/22/19at 23:08; Start 08/22/19 at 22:00; Stop 08/23/19 at 21:59; Status DC Haloperidol Lactate (Haldol Inj) 3 mg 1X ONCE IVP Last administered on 08/22/19at 14:37; Start 08/22/19 at 14:30; Stop 08/22/19 at 14:31; Status DC Hydromorphone HCl (Dilaudid) 1 mg PRN Q4HRS PRN IVP PAIN Last administered on 09/05/19at 06:25; Start 08/22/19 at 19:00; Stop 09/05/19 at 17:10; Status DC Potassium Chloride 75 meq/ Magnesium Sulfate 15 meq/Calcium Gluconate 8 meq/ Multivitamins 10 ml/Chromium/ Copper/Manganese/ Seleni/Zn 0.5 ml/ Insulin Human Regular 20 unit/ Total Parenteral Nutrition/Amino Acids/Dextrose/ Fat Emulsion Intravenous 1,920 ml @ 80 mls/hr TPN CONT IV Last administered on 08/23/19at 22:10; Start 08/23/19 at 22:00; Stop 08/24/19 at 21:59; Status DC Lidocaine HCl (Buffered Lidocaine 1%) 3 ml STK-MED ONCE .ROUTE ; Start 08/24/19 at 11:31; Stop 08/24/19 at 11:31; Status DC Lidocaine HCl (Buffered Lidocaine 1%) 3 ml STK-MED ONCE .ROUTE ; Start 08/24/19 at 12:28; Stop 08/24/19 at 12:29; Status DC Lidocaine HCl (Buffered Lidocaine 1%) 6 ml 1X ONCE INJ Last administered on 08/24/19at 12:53; Start 08/24/19 at 12:45; Stop 08/24/19 at 12:46; Status DC Potassium Chloride 75 meq/ Magnesium Sulfate 15 meq/Calcium Gluconate 8 meq/ Multivitamins 10 ml/Chromium/ Copper/Manganese/ Seleni/Zn 0.5 ml/ Insulin Human Regular 20 unit/ Total Parenteral Nutrition/Amino Acids/Dextrose/ Fat Emulsion Intravenous 1,920 ml @ 80 mls/hr TPN CONT IV Last administered on 08/24/19at 22:00; Start 08/24/19 at 22:00; Stop 08/25/19 at 21:59; Status DC Potassium Chloride 75 meq/ Magnesium Sulfate 15 meq/Calcium Gluconate 8 meq/ Multivitamins 10 ml/Chromium/ Copper/Manganese/ Seleni/Zn 0.5 ml/ Insulin Human Regular 15 unit/ Total Parenteral Nutrition/Amino Acids/Dextrose/ Fat Emulsion Intravenous 1,920 ml @ 80 mls/hr TPN CONT IV Last administered on 08/25/19at 22:28; Start 08/25/19 at 22:00; Stop 08/26/19 at 21:59; Status DC Vecuronium [place] (Norcuron Bolus) 6 mg PRN Q6HRS PRN IV VENT ASYNCHRONY; Start 08/25/19 at 19:15; Stop 08/25/19 at 19:35; Status DC Bumetanide (Bumex) 2 mg 1X ONCE IV Last administered on 08/25/19at 22:09; Start 08/25/19 at 19:45; Stop 08/25/19 at 19:46; Status DC Lidocaine HCl (Buffered Lidocaine 1%) 3 ml STK-MED ONCE .ROUTE ; Start 08/26/19 at 07:59; Stop 08/26/19 at 07:59; Status DC Midazolam HCl (Versed) 5 mg STK-MED ONCE .ROUTE ; Start 08/26/19 at 08:36; Stop 08/26/19 at 08:36; Status DC Fentanyl Citrate (Fentanyl 5ml Vial) 250 mcg STK-MED ONCE .ROUTE ; Start 08/26/19 at 08:36; Stop 08/26/19 at 08:37; Status DC Lidocaine HCl (Buffered Lidocaine 1%) 3 ml 1X ONCE IJ Last administered on 08/26/19at 09:30; Start 08/26/19 at 09:15; Stop 08/26/19 at 09:16; Status DC Midazolam HCl (Versed) 5 mg 1X ONCE IV Last administered on 08/26/19at 09:30; Start 08/26/19 at 09:15; Stop 08/26/19 at 09:16; Status DC Fentanyl Citrate (Fentanyl 5ml Vial) 250 mcg 1X ONCE IV Last administered on 08/26/19at 09:30; Start 08/26/19 at 09:15; Stop 08/26/19 at 09:16; Status DC Bumetanide (Bumex) 2 mg DAILY IV Last administered on 09/05/19at 08:07; Start 08/26/19 at 10:00; Stop 09/05/19 at 17:15; Status DC Potassium Chloride 75 meq/ Magnesium Sulfate 15 meq/ Multivitamins 10 ml/Chromium/ Copper/Manganese/ Seleni/Zn 0.5 ml/ Insulin Human Regular 15 unit/ Total Parenteral Nutrition/Amino Acids/Dextrose/ Fat Emulsion Intravenous 1,920 ml @ 80 mls/hr TPN CONT IV Last administered on 08/26/19at 21:59; Start 08/26/19 at 22:00; Stop 08/27/19 at 21:59; Status DC Metoclopramide HCl (Reglan Vial) 10 mg PRN Q3HRS PRN IVP NAUSEA/VOMITING-3rd choice Last administered on 09/01/19at 04:25; Start 08/27/19 at 16:45 Potassium Chloride 75 meq/ Magnesium Sulfate 15 meq/ Multivitamins 10 ml/Chromium/ Copper/Manganese/ Seleni/Zn 0.5 ml/ Insulin Human Regular 15 unit/ Total Parenteral Nutrition/Amino Acids/Dextrose/ Fat Emulsion Intravenous 1,920 ml @ 80 mls/hr TPN CONT IV Last administered on 08/27/19at 22:41; Start 08/27/19 at 22:00; Stop 08/28/19 at 21:59; Status DC Magnesium Sulfate 50 ml @ 25 mls/hr 1X ONCE IV Last administered on 08/28/19at 10:44; Start 08/28/19 at 09:00; Stop 08/28/19 at 10:59; Status DC Potassium Chloride/Water 100 ml @ 100 mls/hr 1X ONCE IV Last administered on 08/28/19at 09:37; Start 08/28/19 at 09:00; Stop 08/28/19 at 09:59; Status DC Duloxetine HCl (Cymbalta) 30 mg DAILY PO Last administered on 08/29/19at 09:48; Start 08/28/19 at 14:00; Stop 08/31/19 at 10:25; Status DC Potassium Chloride 80 meq/ Magnesium Sulfate 20 meq/ Multivitamins 10 ml/Chromium/ Copper/Manganese/ Seleni/Zn 0.5 ml/ Insulin Human Regular 15 unit/ Total Parenteral Nutrition/Amino Acids/Dextrose/ Fat Emulsion Intravenous 1,920 ml @ 80 mls/hr TPN CONT IV Last administered on 08/28/19at 21:42; Start 08/28/19 at 22:00; Stop 08/29/19 at 21:59; Status DC Potassium Chloride 80 meq/ Magnesium Sulfate 20 meq/ Multivitamins 10 ml/Chromium/ Copper/Manganese/ Seleni/Zn 0.5 ml/ Insulin Human Regular 15 unit/ Total Parenteral Nutrition/Amino Acids/Dextrose/ Fat Emulsion Intravenous 1,920 ml @ 80 mls/hr TPN CONT IV Last administered on 08/29/19at 22:20; Start 08/29/19 at 22:00; Stop 08/30/19 at 21:59; Status DC Lidocaine HCl (Buffered Lidocaine 1%) 3 ml STK-MED ONCE .ROUTE ; Start 08/30/19 at 09:54; Stop 08/30/19 at 09:55; Status DC Hydromorphone HCl (Dilaudid Standard [employer] COMMENT[employer]) 12 mg STK-MED ONCE IV ; Start 08/19/19 at 15:50; Stop 08/30/19 at 11:24; Status DC Potassium Chloride 80 meq/ Magnesium Sulfate 20 meq/ Multivitamins 10 ml/Chrom ium/ Copper/Manganese/ Seleni/Zn 0.5 ml/ Insulin Human Regular 15 unit/ Total Parenteral Nutrition/Amino Acids/Dextrose/ Fat Emulsion Intravenous 1,920 ml @ 80 mls/hr TPN CONT IV Last administered on 08/30/19at 21:40; Start 08/30/19 at 22:00; Stop 08/31/19 at 21:59; Status DC Lidocaine HCl (Buffered Lidocaine 1%) 6 ml 1X ONCE INJ Last administered on 08/30/19at 14:15; Start 08/30/19 at 14:15; Stop 08/30/19 at 14:16; Status DC Potassium Chloride 80 meq/ Magnesium Sulfate 20 meq/ Multivitamins 10 ml/Traffic Maintenance Officer mium/ Copper/Manganese/ Seleni/Zn 1 ml/ Insulin Human Regular 15 unit/ Total Parenteral Nutrition/Amino Acids/Dextrose/ Fat Emulsion Intravenous 1,920 ml @ 80 mls/hr TPN CONT IV Last administered on 08/31/19at 22:04; Start 08/31/19 at 22:00; Stop 09/01/19 at 21:59; Status DC Potassium Chloride/Water 100 ml @ 100 mls/hr 1X ONCE IV Last administered on 09/01/19at 11:34; Start 09/01/19 at 11:00; Stop 09/01/19 at 11:59; Status DC Potassium Chloride 90 meq/ Magnesium Sulfate 20 meq/ Multivitamins 10 ml/Chr omium/ Copper/Manganese/ Seleni/Zn 1 ml/ Insulin Human Regular 15 unit/ Total Parenteral Nutrition/Amino Acids/Dextrose/ Fat Emulsion Intravenous 1,920 ml @ 80 mls/hr TPN CONT IV Last administered on 09/01/19at 22:57; Start 09/01/19 at 22:00; Stop 09/02/19 at 21:59; Status DC Potassium Chloride 90 meq/ Magnesium Sulfate 20 meq/ Multivitamins 10 ml/Chromium/ Copper/Manganese/ Seleni/Zn 1 ml/ Insulin Human Regular 15 unit/ Total Parenteral Nutrition/Amino Acids/Dextrose/ Fat Emulsion Intravenous 1,920 ml @ 80 mls/hr TPN CONT IV Last administered on 09/02/19at 22:48; Start 09/02/19 at 22:00; Stop 09/03/19 at 21:59; Status DC Potassium Chloride 90 meq/ Magnesium Sulfate 20 meq/ Multivitamins 10 ml/Chromium/ Copper/Manganese/ Seleni/Zn 1 ml/ Insulin Human Regular 15 unit/ Total Parenteral Nutrition/Amino Acids/Dextrose/ Fat Emulsion Intravenous 1,890 ml @ 78.75 mls/ hr TPN CONT IV Last administered on 09/03/19at 22:15; Start 09/03/19 at 22:00; Stop 09/04/19 at 21:59; Status DC Linezolid/Dextrose 300 ml @ 300 mls/hr Q12HR IV Last administered on 09/06/19at 21:08; Start 09/04/19 at 09:00; Stop 09/07/19 at 08:11; Status DC Daptomycin 450 mg/ Sodium Chloride 50 ml @ 100 mls/hr Q24H IV Last administered on 09/07/19at 09:25; Start 09/04/19 at 09:00; Stop 09/08/19 at 08:30; Status DC Potassium Chloride 90 meq/ Magnesium Sulfate 20 meq/ Multivitamins 10 ml/Chromium/ Copper/Manganese/ Seleni/Zn 1 ml/ Insulin Human Regular 15 unit/ Total Parenteral Nutrition/Amino Acids/Dextrose/ Fat Emulsion Intravenous 1,890 ml @ 78.75 mls/ hr TPN CONT IV Last administered on 09/04/19at 21:34; Start 09/04/19 at 22:00; Stop 09/05/19 at 21:59; Status DC Lorazepam (Ativan Inj) 2 mg STK-MED ONCE .ROUTE ; Start 09/04/19 at 14:58; Stop 09/04/19 at 14:58; Status DC Metoprolol Tartrate (Lopressor Vial) 5 mg 1X ONCE IVP Last administered on 09/04/19at 15:31; Start 09/04/19 at 15:15; Stop 09/04/19 at 15:16; Status DC Lorazepam (Ativan Inj) 2 mg 1X ONCE IVP Last administered on 09/04/19at 15:30; Start 09/04/19 at 15:15; Stop 09/04/19 at 15:16; Status DC Enoxaparin Sodium (Lovenox 40mg Syringe) 40 mg Q24H SQ Last administered on 09/23/19at 17:44; Start 09/04/19 at 17:00; Stop 09/25/19 at 06:50; Status DC Lorazepam (Ativan Inj) 1 mg PRN Q4HRS PRN IVP ANXIETY / AGITATION MILD-MOD Last administered on 09/18/19at 15:55; Start 09/04/19 at 19:15; Stop 09/20/19 at 11:45; Status DC Lorazepam (Ativan Inj) 2 mg PRN Q4HRS PRN IVP ANXIETY / AGITATION SEVERE Last administered on 09/19/19at 07:55; Start 09/04/19 at 19:15; Stop 09/20/19 at 11:45; Status DC Fentanyl Citrate (Fentanyl 2ml Vial) 50 mcg PRN Q4HRS PRN IVP SEVERE PAIN Last administered on 10/01/19at 05:15; Start 09/05/19 at 13:15; Stop 10/02/19 at 09:29; Status DC Fentanyl Citrate (Fentanyl 2ml Vial) 25 mcg PRN Q4HRS PRN IVP MODERATE PAIN L ast administered on 10/01/19at 00:27; Start 09/05/19 at 13:15; Stop 10/02/19 at 09:30; Status DC Potassium Chloride 90 meq/ Magnesium Sulfate 20 meq/ Multivitamins 10 ml/Chromium/ Copper/Manganese/ Seleni/Zn 1 ml/ Insulin Human Regular 15 unit/ Total Parenteral Nutrition/Amino Acids/Dextrose/ Fat Emulsion Intravenous 1,890 ml @ 78.75 mls/ hr TPN CONT IV Last administered on 09/05/19at 22:18; Start 09/05/19 at 22:00; Stop 09/06/19 at 21:59; Status DC Furosemide (Lasix) 40 mg 1X ONCE IVP Last administered on 09/05/19at 21:51; Start 09/05/19 at 21:45; Stop 09/05/19 at 21:48; Status DC Albumin Human 100 ml @ 100 mls/hr 1X PRN PRN IV SEE COMMENTS; Start 09/06/19 at 01:30 Furosemide (Lasix) 40 mg [id number] IVP Last administered on 09/21/19at 08:04; Start 09/06/19 at 14:00; Stop 09/21/19 at 13:07; Status DC Potassium Chloride 90 meq/ Magnesium Sulfate 20 meq/ Multivitamins 10 ml/Chromium/ Copper/Manganese/ Seleni/Zn 1 ml/ Insulin Human Regular 15 unit/ Total Parenteral Nutrition/Amino Acids/Dextrose/ Fat Emulsion Intravenous 1,800 ml @ 75 mls/hr TPN CONT IV Last administered on 09/06/19at 22:31; Start 09/06/19 at 22:00; Stop 09/07/19 at 21:59; Status DC Potassium Chloride 90 meq/ Magnesium Sulfate 20 meq/ Multivitamins 10 ml/Chromium/ Copper/Manganese/ Seleni/Zn 1 ml/ Insulin Human Regular 15 unit/ Total Parenteral Nutrition/Amino Acids/Dextrose/ Fat Emulsion Intravenous 1,800 ml @ 75 mls/hr TPN CONT IV Last administered on 09/07/19at 22:28; Start 09/07/19 at 22:00; Stop 09/08/19 at 21:59; Status DC Potassium Chloride 110 meq/ Magnesium Sulfate 20 meq/ Multivitamins 10 ml/Chromium/ Copper/Manganese/ Seleni/Zn 1 ml/ Insulin Human Regular 15 unit/ Total Parenteral Nutrition/Amino Acids/Dextrose/ Fat Emulsion Intravenous 1,800 ml @ 75 mls/hr TPN CONT IV Last administered on 09/08/19at 22:01; Start 09/08/19 at 22:00; Stop 09/09/19 at 21:59; Status DC Saliva Substitute (Biotene Moisturizing Mouth) 2 spray PRN Q15MIN PRN PO DRY MOUTH; Start 09/08/19 at 11:00 Potassium Chloride 110 meq/ Magnesium Sulfate 20 meq/ Multivitamins 10 ml/Chromium/ Copper/Manganese/ Seleni/Zn 1 ml/ Insulin Human Regular 15 unit/ Total Parenteral Nutrition/Amino Acids/Dextrose/ Fat Emulsion Intravenous 1,800 ml @ 75 mls/hr TPN CONT IV Last administered on 09/09/19at 22:21; Start 09/09/19 at 22:00; Stop 09/10/19 at 21:59; Status DC Potassium Chloride 110 meq/ Magnesium Sulfate 20 meq/ Multivitamins 10 ml/Chromium/ Copper/Manganese/ Seleni/Zn 1 ml/ Insulin Human Regular 15 unit/ Total Parenteral Nutrition/Amino Acids/Dextrose/ Fat Emulsion Intravenous 1,800 ml @ 75 mls/hr TPN CONT IV Last administered on 09/10/19at 22:04; Start 09/10/19 at 22:00; Stop 09/11/19 at 21:59; Status DC Potassium Chloride 110 meq/ Magnesium Sulfate 20 meq/ Multivitamins 10 ml/Chromium/ Copper/Manganese/ Seleni/Zn 1 ml/ Insulin Human Regular 15 unit/ Total Parenteral Nutrition/Amino Acids/Dextrose/ Fat Emulsion Intravenous 1,800 ml @ 75 mls/hr TPN CONT IV Last administered on 09/11/19at 22:48; Start 09/11/19 at 22:00; Stop 09/12/19 at 21:59; Status DC Potassium Chloride 70 meq/ Magnesium Sulfate 20 meq/ Multivitamins 10 ml/Chromium/ Copper/Manganese/ Seleni/Zn 1 ml/ Insulin Human Regular 15 unit/ Total Parenteral Nutrition/Amino Acids/Dextrose/ Fat Emulsion Intravenous 1,800 ml @ 75 mls/hr TPN CONT IV Last administered on 09/12/19at 21:39; Start 09/12/19 at 22:00; Stop 09/13/19 at 21:59; Status DC Meropenem 500 mg/ Sodium Chloride 50 ml @ 100 mls/hr Q6HRS IV Last administered on 09/14/19at 06:02; Start 09/12/19 at 18:00; Stop 09/14/19 at 09:59; Status DC Barium Sulfate (Varibar Thin Liquid Apple) 148 gm 1X ONCE PO ; Start 09/13/19 at 11:45; Stop 09/13/19 at 11:49; Status DC Potassium Chloride 70 meq/ Magnesium Sulfate 20 meq/ Multivitamins 10 ml/Chromium/ Copper/Manganese/ Seleni/Zn 1 ml/ Insulin Human Regular 15 unit/ Total Parenteral Nutrition/Amino Acids/Dextrose/ Fat Emulsion Intravenous 1,800 ml @ 75 mls/hr TPN CONT IV Last administered on 09/13/19at 22:27; Start 09/13/19 at 22:00; Stop 09/14/19 at 21:59; Status DC Piperacillin Sod/ Tazobactam Sod 3.375 gm/Sodium Chloride 50 ml @ 100 mls/hr Q6HRS IV Last administered on 09/22/19at 06:10; Start 09/14/19 at 12:00; Stop 09/22/19 at 07:26; Status DC Potassium Chloride 70 meq/ Magnesium Sulfate 20 meq/ Multivitamins 10 ml/Chromium/ Copper/Manganese/ Seleni/Zn 1 ml/ Insulin Human Regular 15 unit/ Total Parenteral Nutrition/Amino Acids/Dextrose/ Fat Emulsion Intravenous 1,800 ml @ 75 mls/hr TPN CONT IV Last administered on 09/14/19at 22:03; Start 09/14/19 at 22:00; Stop 09/15/19 at 21:59; Status DC Potassium Chloride 70 meq/ Magnesium Sulfate 20 meq/ Multivitamins 10 ml/Chromium/ Copper/Manganese/ Seleni/Zn 1 ml/ Insulin Human Regular 15 unit/ Total Parenteral Nutrition/Amino Acids/Dextrose/ Fat Emulsion Intravenous 1,800 ml @ 75 mls/hr TPN CONT IV Last administered on 09/15/19at 22:33; Start 09/15/19 at 22:00; Stop 09/16/19 at 21:59; Status DC Potassium Chloride 70 meq/ Magnesium Sulfate 20 meq/ Multivitamins 10 ml/Chromium/ Copper/Manganese/ Seleni/Zn 1 ml/ Insulin Human Regular 15 unit/ Total Parenteral Nutrition/Amino Acids/Dextrose/ Fat Emulsion Intravenous 1,800 ml @ 75 mls/hr TPN CONT IV Last administered on 09/16/19at 23:13; Start 09/16/19 at 22:00; Stop 09/17/19 at 21:59; Status DC Potassium Chloride 80 meq/ Magnesium Sulfate 20 meq/ Multivitamins 10 ml/Chromium/ Copper/Manganese/ Seleni/Zn 1 ml/ Insulin Human Regular 15 unit/ Total Parenteral Nutrition/Amino Acids/Dextrose/ Fat Emulsion Intravenous 1,800 ml @ 75 mls/hr TPN CONT IV Last administered on 09/17/19at 22:30; Start 09/17/19 at 22:00; Stop 09/18/19 at 21:59; Status DC Potassium Chloride 80 meq/ Magnesium Sulfate 20 meq/ Multivitamins 10 ml/Chromium/ Copper/Manganese/ Seleni/Zn 1 ml/ Insulin Human Regular 15 unit/ Total Parenteral Nutrition/Amino Acids/Dextrose/ Fat Emulsion Intravenous 1,800 ml @ 75 mls/hr TPN CONT IV Last administered on 09/18/19at 21:54; Start 09/18/19 at 22:00; Stop 09/19/19 at 21:59; Status DC Potassium Chloride/Water 100 ml @ 100 mls/hr 1X ONCE IV Last administered on 09/19/19at 10:15; Start 09/19/19 at 10:00; Stop 09/19/19 at 10:59; Status DC Potassium Chloride 90 meq/ Magnesium Sulfate 20 meq/ Multivitamins 10 ml/Chromium/ Copper/Manganese/ Seleni/Zn 1 ml/ Insulin Human Regular 20 unit/ Total Parenteral Nutrition/Amino Acids/Dextrose/ Fat Emulsion Intravenous 1,800 ml @ 75 mls/hr TPN CONT IV Last administered on 09/19/19at 22:28; Start 09/19/19 at 22:00; Stop 09/20/19 at 21:59; Status DC Potassium Chloride 90 meq/ Magnesium Sulfate 20 meq/ Multivitamins 10 ml/Chromium/ Copper/Manganese/ Seleni/Zn 1 ml/ Insulin Human Regular 20 unit/ Total Parenteral Nutrition/Amino Acids/Dextrose/ Fat Emulsion Intravenous 1,800 ml @ 75 mls/hr TPN CONT IV Last administered on 09/20/19at 22:08; Start 09/20/19 at 22:00; Stop 09/21/19 at 21:59; Status DC Lorazepam (Ativan Inj) 0.25 mg PRN Q4HRS PRN IVP ANXIETY / AGITATION Last administered on 10/15/19at 13:37; Start 09/21/19 at 07:30 Potassium Chloride 90 meq/ Magnesium Sulfate 20 meq/ Multivitamins 10 ml/Chromium/ Copper/Manganese/ Seleni/Zn 1 ml/ Insulin Human Regular 20 unit/ Total Parenteral Nutrition/Amino Acids/Dextrose/ Fat Emulsion Intravenous 1,800 ml @ 75 mls/hr TPN CONT IV Last administered on 09/21/19at 23:13; Start 09/21/19 at 22:00; Stop 09/22/19 at 21:59; Status DC Furosemide (Lasix) 40 mg DAILY IVP Last administered on 09/23/19at 11:14; Start 09/21/19 at 13:30; Stop 09/25/19 at 09:12; Status DC Fluoxetine HCl (PROzac) 20 mg QHS PEG Last administered on 10/24/19at 21:47; Start 09/22/19 at 21:00 Fentanyl (Duragesic 50mcg/ Hr Patch) 1 patch Q72H TD Last administered on 09/22/19at 21:22; Start 09/22/19 at 21:00; Stop 10/01/19 at 12:00; Status DC Potassium Chloride 40 meq/ Potassium Acetate 60 meq/Magnesium Sulfate 10 meq/ Multivitamins 10 ml/Chromium/ Copper/Manganese/ Seleni/Zn 1 ml/ Insulin Human Regular 20 unit/ Total Parenteral Nutrition/Amino Acids/Dextrose/ Fat Emulsion Intravenous 1,800 ml @ 75 mls/hr TPN CONT IV Last administered on 09/23/19at 00:03; Start 09/22/19 at 22:00; Stop 09/23/19 at 21:59; Status DC Potassium Acetate 80 meq/Magnesium Sulfate 5 meq/ Multivitamins 10 ml/Chromium/ Copper/Manganese/ Seleni/Zn 1 ml/ Insulin Human Regular 20 unit/ Total Parenteral Nutrition/Amino Acids/Dextrose/ Fat Emulsion Intravenous 1,920 ml @ 80 mls/hr TPN CONT IV Last administered on 09/23/19at 21:59; Start 09/23/19 at 22:00; Stop 09/24/19 at 21:59; Status DC Potassium Acetate 60 meq/Magnesium Sulfate 5 meq/ Multivitamins 10 ml/Chromium/ Copper/Manganese/ Seleni/Zn 1 ml/ Insulin Human Regular 30 unit/ Total Parenteral Nutrition/Amino Acids/Dextrose/ Fat Emulsion Intravenous 1,920 ml @ 80 mls/hr TPN CONT IV Last administered on 09/24/19at 21:54; Start 09/24/19 at 22:00; Stop 09/25/19 at 21:59; Status DC Norepinephrine Bitartrate 8 mg/ Dextrose 258 ml @ 13.332 mls/ hr CONT PRN IV PER PROTOCOL Last administered on 10/20/19at 09:09; Start 09/25/19 at 06:30 Albumin Human 500 ml @ 125 mls/hr 1X ONCE IV Last administered on 09/25/19at 08:10; Start 09/25/19 at 08:15; Stop 09/25/19 at 12:14; Status DC Potassium Acetate 40 meq/Magnesium Sulfate 5 meq/ Multivitamins 10 ml/Chromium/ Copper/Manganese/ Seleni/Zn 1 ml/ Insulin Human Regular 30 unit/ Total Parenteral Nutrition/Amino Acids/Dextrose/ Fat Emulsion Intravenous 1,920 ml @ 80 mls/hr TPN CONT IV Last administered on 09/25/19at 22:23; Start 09/25/19 at 22:00; Stop 09/26/19 at 21:59; Status DC Meropenem 1 gm/ Sodium Chloride 100 ml @ 200 mls/hr Q8HRS IV ; Start 09/25/19 at 14:00; Status Cancel Meropenem 1 gm/ Sodium Chloride 100 ml @ 200 mls/hr Q8HRS IV Last administered on 09/25/19at 11:04; Start 09/25/19 at 10:00; Stop 09/25/19 at 13:00; Status DC Meropenem 1 gm/ Sodium Chloride 100 ml @ 200 mls/hr Q12HR IV Last administered on 10/13/19at 08:27; Start 09/25/19 at 21:00; Stop 10/13/19 at 08:56; Status DC Sodium Chloride 1,000 ml @ 1,000 mls/hr 1X ONCE IV Last administered on 09/25/19at 11:06; Start 09/25/19 at 10:45; Stop 09/25/19 at 11:44; Status DC Micafungin Sodium 100 mg/Dextrose 100 ml @ 100 mls/hr Q24H IV Last ad ministered on 10/12/19at 12:34; Start 09/25/19 at 11:00; Stop 10/13/19 at 08:56; Status DC Daptomycin 410 mg/ Sodium Chloride 50 ml @ 100 mls/hr Q24H IV Last administered on 09/27/19at 13:33; Start 09/25/19 at 14:00; Stop 09/28/19 at 08:30; Status DC Midazolam HCl (Versed) 2 mg STK-MED ONCE .ROUTE ; Start 09/25/19 at 14:47; Stop 09/25/19 at 14:48; Status DC Fentanyl Citrate (Fentanyl 2ml Vial) 100 mcg STK-MED ONCE .ROUTE ; Start 09/25/19 at 14:47; Stop 09/25/19 at 14:48; Status DC Flumazenil (Romazicon) 0.5 mg STK-MED ONCE IV ; Start 09/25/19 at 14:48; Stop 09/25/19 at 14:48; Status DC Naloxone HCl (Narcan) 0.4 mg STK-MED ONCE .ROUTE ; Start 09/25/19 at 14:48; Stop 09/25/19 at 14:48; Status DC Lidocaine HCl (Lidocaine 1% 20ml Vial) 20 ml STK-MED ONCE .ROUTE ; Start 09/25/19 at 14:48; Stop 09/25/19 at 14:48; Status DC Midazolam HCl (Versed) 2 mg 1X ONCE IV Last administered on 09/25/19at 15:28; Start 09/25/19 at 15:00; Stop 09/25/19 at 15:01; Status DC Fentanyl Citrate (Fentanyl 2ml Vial) 100 mcg 1X ONCE IV Last administered on 09/25/19at 15:28; Start 09/25/19 at 15:00; Stop 09/25/19 at 15:01; Status DC Lidocaine HCl (Lidocaine 1% 20ml Vial) 20 ml 1X ONCE INJ Last administered on 09/25/19at 15:30; Start 09/25/19 at 15:00; Stop 09/25/19 at 15:01; Status DC Sodium Chloride 1,000 ml @ 100 mls/hr Q10H IV Last administered on 10/04/19at 07:30; Start 09/25/19 at 20:00; Stop 10/04/19 at 11:26; Status DC Sodium Bicarbonate (Sodium Bicarb Adult 8.4% Syr) 50 meq 1X ONCE IV Last administered on 09/25/19at 21:47; Start 09/25/19 at 22:00; Stop 09/25/19 at 22:01; Status DC Potassium Acetate 40 meq/Magnesium Sulfate 5 meq/ Multivitamins 10 ml/Chromium/ Copper/Manganese/ Seleni/Zn 1 ml/ Insulin Human Regular 30 unit/ Total Parenteral Nutrition/Amino Acids/Dextrose/ Fat Emulsion Intravenous 1,920 ml @ 80 mls/hr TPN CONT IV Last administered on 09/26/19at 22:28; Start 09/26/19 at 22:00; Stop 09/27/19 at 21:59; Status DC Sodium Chloride 500 ml @ 500 mls/hr 1X ONCE IV Last administered on 09/27/19at 06:39; Start 09/27/19 at 06:45; Stop 09/27/19 at 07:44; Status DC Potassium Acetate 40 meq/Magnesium Sulfate 5 meq/ Multivitamins 10 ml/Chromium/ Copper/Manganese/ Seleni/Zn 1 ml/ Insulin Human Regular 30 unit/ Total Parenteral Nutrition/Amino Acids/Dextrose/ Fat Emulsion Intravenous 1,920 ml @ 80 mls/hr TPN CONT IV Last administered on 09/27/19at 22:03; Start 09/27/19 at 22:00; Stop 09/28/19 at 21:59; Status DC Metoprolol Tartrate (Lopressor Vial) 5 mg PRN Q6HRS PRN IVP HYPERTENSION Last administered on 10/06/19at 10:14; Start 09/28/19 at 09:00 Potassium Acetate 40 meq/Magnesium Sulfate 5 meq/ Multivitamins 10 ml/Chromium/ Copper/Manganese/ Seleni/Zn 1 ml/ Insulin Human Regular 30 unit/ Total Parenteral Nutrition/Amino Acids/Dextrose/ Fat Emulsion Intravenous 1,920 ml @ 80 mls/hr TPN CONT IV Last administered on 09/28/19at 21:26; Start 09/28/19 at 22:00; Stop 09/29/19 at 21:59; Status DC Potassium Acetate 40 meq/Magnesium Sulfate 5 meq/ Multivitamins 10 ml/Chromium/ Copper/Manganese/ Seleni/Zn 1 ml/ Insulin Human Regular 30 unit/ Total Parenteral Nutrition/Amino Acids/Dextrose/ Fat Emulsion Intravenous 1,920 ml @ 80 mls/hr TPN CONT IV Last administered on 09/29/19at 23:23; Start 09/29/19 at 22:00; Stop 09/30/19 at 21:59; Status DC Potassium Acetate 40 meq/Magnesium Sulfate 5 meq/ Multivitamins 10 ml/Chromium/ Copper/Manganese/ Seleni/Zn 1 ml/ Insulin Human Regular 30 unit/ Total Parenteral Nutrition/Amino Acids/Dextrose/ Fat Emulsion Intravenous 1,920 ml @ 80 mls/hr TPN CONT IV Last administered on 09/30/19at 21:35; Start 09/30/19 at 22:00; Stop 10/01/19 at 21:59; Status DC Furosemide (Lasix) 20 mg 1X ONCE IVP Last administered on 10/01/19at 06:26; Start 10/01/19 at 06:15; Stop 10/01/19 at 06:16; Status DC Methylprednisolone Sodium Succinate (SOLU-Medrol 125MG VIAL) 125 mg 1X ONCE IV Last administered on 10/01/19at 06:26; Start 10/01/19 at 06:15; Stop 10/01/19 at 06:16; Status DC Albuterol/ Ipratropium (Duoneb) 3 ml Q4HRS NEB Last administered on 10/25/19at 03:58; Start 10/01/19 at 08:00 Fentanyl Citrate 30 ml @ 0 mls/hr CONT PRN IV SEE PROTOCOL Last administered on 10/22/19at 08:03; Start 10/01/19 at 06:00; Stop 10/22/19 at 12:42; Status DC Propofol 100 ml @ 0 mls/hr CONT PRN IV SEE PROTOCOL Last administered on 10/08/19at 23:50; Start 10/01/19 at 06:00 Fentanyl Citrate (Fentanyl 2ml Vial) 25 mcg PRN Q1HR PRN IV SEE COMMENTS; Start 10/01/19 at 06:00 Fentanyl Citrate (Fentanyl 2ml Vial) 50 mcg PRN Q1HR PRN IV SEE COMMENTS; Start 10/01/19 at 06:00 Chlorhexidine Gluconate (Peridex) 15 ml BID MM ; Start 10/01/19 at 09:00; Stop 10/01/19 at 07:58; Status DC Potassium Acetate 40 meq/Magnesium Sulfate 5 meq/ Multivitamins 10 ml/Chromium/ Copper/Manganese/ Seleni/Zn 1 ml/ Insulin Human Regular 30 unit/ Total Parenteral Nutrition/Amino Acids/Dextrose/ Fat Emulsion Intravenous 1,920 ml @ 80 mls/hr TPN CONT IV Last administered on 10/01/19at 21:19; Start 10/01/19 at 22:00; Stop 10/02/19 at 21:59; Status DC Acetylcysteine (Mucomyst 20% Resp Treatment) 600 mg BID NEB Last administered on 10/07/19at 09:33; Start 10/01/19 at 21:00; Stop 10/07/19 at 10:39; Status DC Magnesium Sulfate 100 ml @ 25 mls/hr 1X ONCE IV Last administered on 10/01/19at 15:48; Start 10/01/19 at 15:45; Stop 10/01/19 at 19:44; Status DC Potassium Acetate 40 meq/Magnesium Sulfate 5 meq/ Multivitamins 10 ml/Chromium/ Copper/Manganese/ Seleni/Zn 1 ml/ Insulin Human Regular 30 unit/ Total Parenteral Nutrition/Amino Acids/Dextrose/ Fat Emulsion Intravenous 1,920 ml @ 80 mls/hr TPN CONT IV Last administered on 10/02/19at 21:35; Start 10/02/19 at 22:00; Stop 10/03/19 at 21:59; Status DC Potassium Chloride/Water 100 ml @ 100 mls/hr Q1H IV Last administered on 10/03/19at 08:31; Start 10/03/19 at 07:00; Stop 10/03/19 at 08:59; Status DC Potassium Acetate 40 meq/Magnesium Sulfate 5 meq/ Multivitamins 10 ml/Chromium/ Copper/Manganese/ Seleni/Zn 1 ml/ Insulin Human Regular 30 unit/ Total Parenteral Nutrition/Amino Acids/Dextrose/ Fat Emulsion Intravenous 1,920 ml @ 80 mls/hr TPN CONT IV Last administered on 10/03/19at 21:54; Start 10/03/19 at 22:00; Stop 10/04/19 at 19:34; Status DC Lidocaine HCl (Buffered Lidocaine 1%) 3 ml STK-MED ONCE .ROUTE ; Start 10/03/19 at 12:14; Stop 10/03/19 at 12:14; Status DC Lidocaine HCl (Buffered Lidocaine 1%) 3 ml 1X ONCE IJ Last administered on 10/03/19at 13:11; Start 10/03/19 at 13:00; Stop 10/03/19 at 13:01; Status DC Magnesium Sulfate 50 ml @ 25 mls/hr 1X ONCE IV ; Start 10/04/19 at 08:15; Stop 10/04/19 at 10:14; Status DC Potassium Acetate 40 meq/Magnesium Sulfate 10 meq/ Multivitamins 10 ml/Chromium/ Copper/Manganese/ Seleni/Zn 1 ml/ Insulin Human Regular 20 unit/ Total Parenteral Nutrition/Amino Acids/Dextrose/ Fat Emulsion Intravenous 1,920 ml @ 80 mls/hr TPN CONT IV Last administered on 10/04/19at 21:32; Start 10/04/19 at 22:00; Stop 10/05/19 at 21:59; Status DC Potassium Chloride/Water 100 ml @ 100 mls/hr Q1H IV Last administered on 10/05/19at 09:12; Start 10/05/19 at 08:00; Stop 10/05/19 at 09:59; Status DC Alteplase, Recombinant (Cathflo For Central Catheter Clearance) 4 mg 1X ONCE INT CAT ; Start 10/05/19 at 09:15; Stop 10/05/19 at 09:16; Status UNV Alteplase, Recombinant (Cathflo For Central Catheter Clearance) 4 mg 1X ONCE INT CAT ; Start 10/05/19 at 09:15; Stop 10/05/19 at 09:16; Status UNV Alteplase, Recombinant (Cathflo For Central Catheter Clearance) 4 mg 1X ONCE INT CAT ; Start 10/05/19 at 09:15; Stop 10/05/19 at 09:16; Status UNV Alteplase, Recombinant 4 mg/ Sodium Chloride 20 ml @ 20 mls/hr 1X ONCE IV Last administered on 10/05/19at 10:10; Start 10/05/19 at 10:00; Stop 10/05/19 at 10:59; Status DC Alteplase, Recombinant 4 mg/ Sodium Chloride 20 ml @ 20 mls/hr 1X ONCE IV Last administered on 10/05/19at 10:09; Start 10/05/19 at 10:00; Stop 10/05/19 at 10:59; Status DC Alteplase, Recombinant 4 mg/ Sodium Chloride 20 ml @ 20 mls/hr 1X ONCE IV Last administered on 10/05/19at 10:09; Start 10/05/19 at 10:00; Stop 10/05/19 at 10:59; Status DC Potassium Acetate 60 meq/Magnesium Sulfate 10 meq/ Multivitamins 10 ml/Chromium/ Copper/Manganese/ Seleni/Zn 1 ml/ Insulin Human Regular 20 unit/ Total Parenteral Nutrition/Amino Acids/Dextrose/ Fat Emulsion Intravenous 1,920 ml @ 80 mls/hr TPN CONT IV Last administered on 10/05/19at 21:55; Start 10/05/19 at 22:00; Stop 10/06/19 at 21:59; Status DC Albumin Human 500 ml @ 125 mls/hr 1X ONCE IV Last administered on 10/06/19at 12:01; Start 10/06/19 at 11:15; Stop 10/06/19 at 15:14; Status DC Sodium Chloride 500 ml @ 500 mls/hr 1X ONCE IV Last administered on 10/06/19at 13:50; Start 10/06/19 at 11:15; Stop 10/06/19 at 12:14; Status DC Potassium Acetate 60 meq/Magnesium Sulfate 14 meq/ Multivitamins 10 ml/Chromium/ Copper/Manganese/ Seleni/Zn 1 ml/ Insulin Human Regular 20 unit/ Total Parenteral Nutrition/Amino Acids/Dextrose/ Fat Emulsion Intravenous 1,920 ml @ 80 mls/hr TPN CONT IV Last administered on 10/06/19at 22:26; Start 10/06/19 at 22:00; Stop 10/07/19 at 21:59; Status DC Ciprofloxacin/ Dextrose 200 ml @ 200 mls/hr Q12HR IV Last administered on 10/13/19at 08:27; Start 10/06/19 at 21:00; Stop 10/13/19 at 08:56; Status DC Albumin Human 250 ml @ 62.5 mls/hr 1X ONCE IV Last administered on 10/07/19at 11:09; Start 10/07/19 at 11:00; Stop 10/07/19 at 14:59; Status DC Furosemide (Lasix) 20 mg 1X ONCE IVP Last administered on 10/07/19at 14:52; Start 10/07/19 at 10:45; Stop 10/07/19 at 10:49; Status DC Potassium Acetate 60 meq/Magnesium Sulfate 14 meq/ Multivitamins 10 ml/Chromium/ Copper/Manganese/ Seleni/Zn 1 ml/ Insulin Human Regular 15 unit/ Total Parent eral Nutrition/Amino Acids/Dextrose/ Fat Emulsion Intravenous 1,920 ml @ 80 mls/hr TPN CONT IV Last administered on 10/07/19at 22:08; Start 10/07/19 at 22:00; Stop 10/08/19 at 21:59; Status DC Potassium Acetate 60 meq/Magnesium Sulfate 14 meq/ Multivitamins 10 ml/Chromium/ Copper/Manganese/ Seleni/Zn 1 ml/ Insulin Human Regular 15 unit/ Total Parenteral Nutrition/Amino Acids/Dextrose/ Fat Emulsion Intravenous 1,920 ml @ 80 mls/hr TPN CONT IV Last administered on 10/08/19at 22:12; Start 10/08/19 at 22:00; Stop 10/09/19 at 21:59; Status DC Potassium Acetate 60 meq/Magnesium Sulfate 14 meq/ Multivitamins 10 ml/Chromium/ Copper/Manganese/ Seleni/Zn 1 ml/ Insulin Human Regular 15 unit/ Total Parenteral Nutrition/Amino Acids/Dextrose/ Fat Emulsion Intravenous 1,920 ml @ 80 mls/hr TPN CONT IV Last administered on 10/09/19at 22:22; Start 10/09/19 at 22:00; Stop 10/10/19 at 21:59; Status DC Furosemide (Lasix) 20 mg 1X ONCE IVP Last administered on 10/10/19at 11:07; Start 10/10/19 at 10:30; Stop 10/10/19 at 10:34; Status DC Potassium Acetate 60 meq/Magnesium Sulfate 14 meq/ Multivitamins 10 ml/Chromium/ Copper/Manganese/ Seleni/Zn 1 ml/ Insulin Human Regular 15 unit/ Sodium Chloride 20 meq/Total Parenteral Nutrition/Amino Acids/Dextrose/ Fat Emulsion Intravenous 1,920 ml @ 80 mls/hr TPN CONT IV Last administered on 10/10/19at 21:54; Start 10/10/19 at 22:00; Stop 10/11/19 at 21:59; Status DC Potassium Acetate 30 meq/Magnesium Sulfate 14 meq/ Multivitamins 10 ml/Chromium/ Copper/Manganese/ Seleni/Zn 1 ml/ Insulin Human Regular 15 unit/ Sodium Chloride 20 meq/Potassium Chloride 30 meq/ Total Parenteral Nutrition/Amino Acids/Dextrose/ Fat Emulsion Intravenous 1,920 ml @ 80 mls/hr TPN CONT IV Last administered on 10/11/19at 21:46; Start 10/11/19 at 22:00; Stop 10/12/19 at 21:59; Status DC Sodium Chloride 80 meq/Potassium Chloride 30 meq/ Potassium Acetate 30 meq/Magnesium Sulfate 14 meq/ Multivitamins 10 ml/Chromium/ Copper/Manganese/ Seleni/Zn 1 ml/ Insulin Human Regular 15 unit/ Total Parenteral Nutrition/Amino Acids/Dextrose/ Fat Emulsion Intravenous 1,920 ml @ 80 mls/hr TPN CONT IV Last administered on 10/12/19at 22:33; Start 10/12/19 at 22:00; Stop 10/13/19 at 21:59; Status DC Furosemide (Lasix) 40 mg 1X ONCE IVP Last administered on 10/12/19at 16:27; Start 10/12/19 at 15:30; Stop 10/12/19 at 15:33; Status DC Albumin Human 250 ml @ 62.5 mls/hr 1X ONCE IV Last administered on 10/12/19at 16:27; Start 10/12/19 at 15:30; Stop 10/12/19 at 19:29; Status DC Sodium Chloride 80 meq/Potassium Chloride 30 meq/ Potassium Acetate 30 meq/Magnesium Sulfate 14 meq/ Multivitamins 10 ml/Chromium/ Copper/Manganese/ Seleni/Zn 1 ml/ Insulin Human Regular 15 unit/ Total Parenteral Nutrition/Amino Acids/Dextrose/ Fat Emulsion Intravenous 1,920 ml @ 80 mls/hr TPN CONT IV Last administered on 10/13/19at 22:25; Start 10/13/19 at 22:00; Stop 10/14/19 at 21:59; Status DC Sodium Chloride 80 meq/Potassium Chloride 30 meq/ Potassium Acetate 30 meq/Magnesium Sulfate 14 meq/ Multivitamins 10 ml/Chromium/ Copper/Manganese/ Seleni/Zn 1 ml/ Insulin Human Regular 15 unit/ Total Parenteral Nutrition/Amino Acids/Dextrose/ Fat Emulsion Intravenous 1,920 ml @ 80 mls/hr TPN CONT IV Last administered on 10/14/19at 21:32; Start 10/14/19 at 22:00; Stop 10/15/19 at 21:59; Status DC Sodium Chloride 80 meq/Potassium Chloride 30 meq/ Potassium Acetate 30 meq/Magnesium Sulfate 14 meq/ Multivitamins 10 ml/Chromium/ Copper/Manganese/ Seleni/Zn 1 ml/ Insulin Human Regular 15 unit/ Total Parenteral Nutrition/Amino Acids/Dextrose/ Fat Emulsion Intravenous 1,920 ml @ 80 mls/hr TPN CONT IV Last administered on 10/15/19at 21:53; Start 10/15/19 at 22:00; Stop 10/16/19 at 21:59; Status DC Acetylcysteine (Mucomyst 20% Resp Treatment) 600 mg RTBID NEB Last administered on 10/24/19at 19:52; Start 10/15/19 at 12:00 Sodium Chloride 80 meq/Potassium Chloride 30 meq/ Potassium Acetate 30 meq/Magnesium Sulfate 14 meq/ Multivitamins 10 ml/Chromium/ Copper/Manganese/ Seleni/Zn 1 ml/ Insulin Human Regular 15 unit/ Total Parenteral Nutrition/Amino Acids/Dextrose/ Fat Emulsion Intravenous 1,920 ml @ 80 mls/hr TPN CONT IV Last administered on 10/16/19at 22:06; Start 10/16/19 at 22:00; Stop 10/17/19 at 21:59; Status DC Meropenem 500 mg/ Sodium Chloride 50 ml @ 100 mls/hr Q6HRS IV Last administered on 10/25/19at 05:34; Start 10/16/19 at 18:00 Daptomycin 500 mg/ Sodium Chloride 50 ml @ 100 mls/hr Q24H IV Last administered on 10/24/19at 21:47; Start 10/16/19 at 19:00; Stop 10/25/19 at 08:13; Status DC Sodium Chloride 80 meq/Potassium Chloride 30 meq/ Potassium Acetate 30 me q/Magnesium Sulfate 14 meq/ Multivitamins 10 ml/Chromium/ Copper/Manganese/ Seleni/Zn 1 ml/ Insulin Human Regular 15 unit/ Total Parenteral Nutrition/Amino Acids/Dextrose/ Fat Emulsion Intravenous 1,920 ml @ 80 mls/hr TPN CONT IV Last administered on 10/17/19at 22:09; Start 10/17/19 at 22:00; Stop 10/18/19 at 21:59; Status DC Heparin Sodium (Porcine) 1000 unit/Sodium Chloride 1,001 ml @ 1,001 mls/hr 1X ONCE IRR ; Start 10/18/19 at 06:00; Stop 10/18/19 at 06:59; Status DC Propofol (Diprivan) 200 mg STK-MED ONCE IV ; Start 10/18/19 at 07:44; Stop 10/18/19 at 07:44; Status DC Lidocaine HCl (Lidocaine Pf 2% Vial) 5 ml STK-MED ONCE .ROUTE ; Start 10/18/19 at 07:44; Stop 10/18/19 at 07:44; Status DC Fentanyl Citrate (Fentanyl 2ml Vial) 100 mcg STK-MED ONCE .ROUTE ; Start 10/18/19 at 07:44; Stop 10/18/19 at 07:44; Status DC Rocuronium [place] (Zemuron) 100 mg STK-MED ONCE .ROUTE ; Start 10/18/19 at 07:44; Stop 10/18/19 at 07:44; Status DC Micafungin Sodium 100 mg/Dextrose 100 ml @ 100 mls/hr Q24H IV Last administered on 10/25/19at 08:33; Start 10/18/19 at 08:30 Bupivacaine HCl/ Epinephrine Bitart (Sensorcain-Epi 0.5%-1:825255 Mpf) 30 ml STK-MED ONCE .ROUTE ; Start 10/18/19 at 08:34; Stop 10/18/19 at 08:35; Status DC Iohexol (Omnipaque 300 Mg/ml) 50 ml STK-MED ONCE .ROUTE Last administered on 10/18/19at 13:30; Start 10/18/19 at 08:35; Stop 10/18/19 at 08:35; Status DC Sodium Chloride 80 meq/Potassium Chloride 30 meq/ Potassium Acetate 30 meq/Magnesium Sulfate 14 meq/ Multivitamins 10 ml/Chromium/ Copper/Manganese/ Seleni/Zn 1 ml/ Insulin Human Regular 15 unit/ Total Parenteral Nutrition/Amino Acids/Dextrose/ Fat Emulsion Intravenous 1,920 ml @ 80 mls/hr TPN CONT IV Last administered on 10/19/19at 01:22; Start 10/18/19 at 22:00; Stop 10/19/19 at 21:59; Status DC Phenylephrine HCl (Brayden-Synephrine Inj) 10 mg STK-MED ONCE .ROUTE ; Start 10/18/19 at 10:15; Stop 10/18/19 at 10:15; Status DC Desflurane (Suprane) 90 ml STK-MED ONCE IH ; Start 10/18/19 at 10:18; Stop 10/18/19 at 10:19; Status DC Albumin Human 500 ml @ As Directed STK-MED ONCE IV ; Start 10/18/19 at 11:06; Stop 10/18/19 at 11:06; Status DC Vasopressin (Vasostrict) 20 unit STK-MED ONCE .ROUTE ; Start 10/18/19 at 12:23; Stop 10/18/19 at 12:23; Status DC Phenylephrine HCl (Brayden-Synephrine Inj) 10 mg STK-MED ONCE .ROUTE ; Start 10/18/19 at 13:33; Stop 10/18/19 at 13:33; Status DC Phenylephrine HCl (Brayden-Synephrine Inj) 10 mg STK-MED ONCE .ROUTE ; Start 10/18/19 at 13:33; Stop 10/18/19 at 13:33; Status DC Ondansetron HCl (Zofran) 4 mg STK-MED ONCE .ROUTE ; Start 10/18/19 at 13:33; Stop 10/18/19 at 13:33; Status DC Enoxaparin Sodium (Lovenox 40mg Syringe) 40 mg Q24H SQ Last administered on 10/25/19at 08:33; Start 10/19/19 at 08:00 Sodium Chloride (Normal Saline Flush) 3 ml QSHIFT PRN IV AFTER MEDS AND BLOOD DRAWS; Start 10/18/19 at 14:45 Naloxone HCl (Narcan) 0.4 mg PRN Q2MIN PRN IV SEE INSTRUCTIONS; Start 10/18/19 at 14:45 Sodium Chloride 1,000 ml @ 25 mls/hr Q24H IV Last administered on 10/22/19at 12:37; Start 10/18/19 at 14:33 Morphine Sulfate (Morphine Sulfate) 1 mg PRN Q1HR PRN IV PAIN; Start 10/18/19 at 14:45 Midazolam HCl 100 mg/Sodium Chloride 100 ml @ 1 mls/hr CONT PRN IV SEE I/O RECORD Last administered on 10/21/19at 18:48; Start 10/18/19 at 14:45 Phenylephrine HCl (PHENYLEPHRINE in 0.9% NACL PF) 1 mg STK-MED ONCE IV ; Start 10/18/19 at 14:44; Stop 10/18/19 at 14:45; Status DC Ephedrine Sulfate (ePHEDrine PF IN SALINE SYRINGE) 50 mg STK-MED ONCE IV ; Start 10/18/19 at 14:45; Stop 10/18/19 at 14:45; Status DC Vasopressin 20 unit/Dextrose 101 ml @ 12 mls/hr CONT PRN IV SEE I/O RECORD Last administered on 10/25/19at 04:17; Start 10/18/19 at 15:30 Sodium Chloride 1,000 ml @ 1,000 mls/hr 1X ONCE IV Last administered on 10/18/19at 15:42; Start 10/18/19 at 15:45; Stop 10/18/19 at 16:44; Status DC Albumin Human 500 ml @ 125 mls/hr 1X ONCE IV ; Start 10/18/19 at 16:00; Stop 10/18/19 at 19:59; Status DC Albumin Human 500 ml @ 125 mls/hr PRN Q1HR PRN IV PER PROTOCOL; Start 10/18/19 at 15:45 Magnesium Sulfate 50 ml @ 25 mls/hr 1X ONCE IV Last administered on 10/18/19at 17:02; Start 10/18/19 at 16:30; Stop 10/18/19 at 18:29; Status DC Sodium Bicarbonate (Sodium Bicarb Adult 8.4% Syr) 50 meq STK-MED ONCE .ROUTE ; Start 10/18/19 at 16:20; Stop 10/18/19 at 16:20; Status DC Sodium Bicarbonate (Sodium Bicarb Adult 8.4% Syr) 100 meq 1X ONCE IV Last administered on 10/18/19at 17:07; Start 10/18/19 at 16:30; Stop 10/18/19 at 16:31; Status DC Sodium Bicarbonate 150 meq/Dextrose 1,150 ml @ 75 mls/hr 1X ONCE IV Last administered on 10/18/19at 20:02; Start 10/18/19 at 16:30; Stop 10/19/19 at 07:49; Status DC Sodium Chloride 80 meq/Potassium Chloride 30 meq/ Potassium Acetate 30 meq/Ma gnesium Sulfate 14 meq/ Multivitamins 10 ml/Chromium/ Copper/Manganese/ Seleni/Zn 1 ml/ Insulin Human Regular 15 unit/ Total Parenteral Nutrition/Amino Acids/Dextrose/ Fat Emulsion Intravenous 1,920 ml @ 80 mls/hr TPN CONT IV Last administered on 10/19/19at 23:05; Start 10/19/19 at 22:00; Stop 10/20/19 at 21:59; Status DC Sodium Chloride 100 meq/Potassium Chloride 30 meq/ Potassium Acetate 30 meq/Magnesium Sulfate 12 meq/ Multivitamins 10 ml/Chromium/ Copper/Manganese/ Seleni/Zn 1 ml/ Insulin Human Regular 15 unit/ Total Parenteral Nutrition/Amino Acids/Dextrose/ Fat Emulsion Intravenous 1,920 ml @ 80 mls/hr TPN CONT IV Last administered on 10/20/19at 21:52; Start 10/20/19 at 22:00; Stop 10/21/19 at 21:59; Status DC Sodium Chloride 100 meq/Potassium Chloride 30 meq/ Potassium Acetate 30 meq/Magnesium Sulfate 12 meq/ Multivitamins 10 ml/Chromium/ Copper/Manganese/ Seleni/Zn 1 ml/ Insulin Human Regular 15 unit/ Total Parenteral Nutrition/Amino Acids/Dextrose/ Fat Emulsion Intravenous 1,920 ml @ 80 mls/hr TPN CONT IV Last administered on 10/21/19at 21:46; Start 10/21/19 at 22:00; Stop 10/22/19 at 21:59; Status DC Sodium Chloride 100 meq/Potassium Chloride 30 meq/ Potassium Acetate 30 meq/Magnesium Sulfate 12 meq/ Multivitamins 10 ml/Chromium/ Copper/Manganese/ Se dinorah/Zn 1 ml/ Insulin Human Regular 15 unit/ Total Parenteral Nutrition/Amino Acids/Dextrose/ Fat Emulsion Intravenous 1,800 ml @ 75 mls/hr TPN CONT IV Last administered on 10/22/19at 22:04; Start 10/22/19 at 22:00; Stop 10/23/19 at 21:59; Status DC Fentanyl Citrate 55 ml @ 0 mls/hr CONT PRN IV SEE COMMENTS Last administered on 10/24/19at 23:55; Start 10/22/19 at 13:00 Sodium Chloride 100 meq/Potassium Chloride 30 meq/ Potassium Acetate 30 meq/Magnesium Sulfate 12 meq/ Multivitamins 10 ml/Chromium/ Copper/Manganese/ Seleni/Zn 1 ml/ Insulin Human Regular 15 unit/ Total Parenteral Nutrition/Amino Acids/Dextrose/ Fat Emulsion Intravenous 1,680 ml @ 70 mls/hr TPN CONT IV Last administered on 10/23/19at 21:23; Start 10/23/19 at 22:00; Stop 10/24/19 at 21:59; Status DC Sodium Chloride 110 meq/Potassium Chloride 30 meq/ Potassium Acetate 30 meq/Magnesium Sulfate 15 meq/ Multivitamins 10 ml/Chromium/ Copper/Manganese/ Seleni/Zn 1 ml/ Insulin Human Regular 15 unit/ Total Parenteral Nutrition/Amino Acids/Dextrose/ Fat Emulsion Intravenous 1,680 ml @ 70 mls/hr TPN CONT IV Last administered on 10/24/19at 21:48; Start 10/24/19 at 22:00; Stop 10/25/19 at 21:59 Active Scripts Active Reported Bisoprolol Fumarate 5 Mg Tablet 10 Mg PO DAILY Vitals/I & O Vital Sign - Last 24 Hours 10/24/19 10/24/19 10/24/19 10/24/19 09:00 10:00 11:00 11:34 Pulse 80 74 74 Resp 22 22 B/P (MAP) 133/83 (100) 124/72 (89) 136/81 (99) Pulse Ox 100 100 100 99 O2 Delivery Ventilator Ventilator Ventilator Ventilator 10/24/19 10/24/19 10/24/19 10/24/19 12:00 12:00 13:00 13:35 Temp 98.0 98.0 Pulse 88 82 Resp 22 B/P (MAP) 135/83 (100) 108/68 (81) Pulse Ox 100 100 99 O2 Delivery Mechanical Ventilator Ventilator Ventilator Ventilator 10/24/19 10/24/19 10/24/19 10/24/19 14:00 15:00 15:28 16:00 Temp 98.4 98.4 Pulse 82 78 100 Resp 22 22 B/P (MAP) 118/67 (84) 121/70 (87) 124/76 (92) Pulse Ox 100 100 99 100 O2 Delivery Ventilator Ventilator Ventilator Ventilator 10/24/19 10/24/19 10/24/19 10/24/19 16:00 17:00 17:24 18:00 Pulse 84 82 Resp 22 B/P (MAP) 104/52 (69) 106/58 (74) Pulse Ox 100 99 100 O2 Delivery Mechanical Ventilator Ventilator Ventilator Ventilator 10/24/19 10/24/19 10/24/19 10/24/19 19:00 19:54 19:58 20:00 Temp 98.0 98.0 Pulse 78 80 Resp 14 20 B/P (MAP) 96/63 (74) 111/70 (84) Pulse Ox 100 99 100 100 O2 Delivery Ventilator Ventilator Ventilator Ventilator 10/24/19 10/24/19 10/24/19 10/24/19 20:00 21:00 22:00 23:00 Pulse 92 89 88 Resp 22 25 16 B/P (MAP) 165/97 (119) 149/84 (105) 156/100 (118) Pulse Ox 100 100 100 O2 Delivery Mechanical Ventilator Ventilator Ventilator Ventilator 10/24/19 10/24/19 10/25/19 10/25/19 23:51 23:55 00:00 00:01 Temp 100.1 100.1 Pulse 121 Resp 25 23 B/P (MAP) 141/77 (98) Pulse Ox 100 100 100 O2 Delivery Ventilator Mechanical Ventilator Ventilator O2 Flow Rate 40.0 10/25/19 10/25/19 10/25/19 10/25/19 00:25 01:00 02:00 03:00 Pulse 114 80 110 Resp 15 14 12 16 B/P (MAP) 98/51 (67) 93/51 (65) 129/83 (98) Pulse Ox 100 100 99 95 O2 Delivery Ventilator Ventilator Ventilator Ventilator O2 Flow Rate 40.0 10/25/19 10/25/19 10/25/19 10/25/19 03:48 04:00 04:00 05:00 Temp 98.1 98.1 Pulse 96 97 Resp 19 16 B/P (MAP) 132/68 (89) 109/73 (85) Pulse Ox 100 95 100 O2 Delivery Ventilator Mechanical Ventilator Ventilator Ventilator 10/25/19 10/25/19 06:00 07:00 Pulse 79 91 Resp 24 19 B/P (MAP) 134/92 (106) 144/99 (114) Pulse Ox 100 100 O2 Delivery Ventilator Ventilator Intake and Output 10/24/19 10/24/19 10/25/19 15:00 23:00 07:00 Intake Total 300 ml 1743 ml 1430.4 ml Output Total 560 ml 1405 ml 1380 ml Balance -260 ml 338 ml 50.4 ml Justicifation of Admission Dx: Justifications for Admission: Justification of Admission Dx: Yes GREG HERRERA MD Oct 25, 2019 08:48
--- NOTE | 2019-10-25 09:50 | PDOC ---
SURGICAL PROGRESS NOTE Subjective Pt awake on vent Vital Signs Vital Signs Date Time Temp Pulse Resp B/P (MAP) Pulse Ox O2 Delivery O2 Flow Rate FiO2 10/25/19 09:00 100 Ventilator 10/25/19 09:00 91 14 118/77 (91) 10/25/19 08:00 97.8 97.8 10/25/19 00:25 40.0 I&O Intake and Output 10/25/19 07:00 Intake Total 3473.4 ml Output Total 3345 ml Balance 128.4 ml IV Total 2532.4 ml Tube Feeding 691 ml Blood Product IV Normal Saline Flush 100 ml Other 150 ml Output Urine Total 1670 ml Chest Tube Drainage Total 80 ml Drainage Total 1595 ml PATIENT HAS A ROSARIO: Yes (accurate i and os) General: Alert, No acute distress Abdomen: Soft, Other (tubes in place, G-tube portion with bilious output, manny J tube feeds, various drains with decreasing output) Labs Laboratory Tests Test 10/23/19 12:49 10/23/19 18:06 10/23/19 23:53 10/24/19 06:15 Glucose (Fingerstick) 169 mg/dL (70-99) 132 mg/dL (70-99) 147 mg/dL (70-99) White Blood Count 18.0 x10^3/uL (4.0-11.0) Red Blood Count 2.62 x10^6/uL (3.50-5.40) Hemoglobin 7.7 g/dL (12.0-15.5) Hematocrit 23.4 % (36.0-47.0) Mean Corpuscular Volume 89 fL (79-100) Mean Corpuscular Hemoglobin 30 pg (25-35) Mean Corpuscular Hemoglobin Concent 33 g/dL (31-37) Red Cell Distribution Width 14.5 % (11.5-14.5) Platelet Count 375 x10^3/uL (140-400) Neutrophils (%) (Auto) 86 % (31-73) Lymphocytes (%) (Auto) 7 % (24-48) Monocytes (%) (Auto) 6 % (0-9) Eosinophils (%) (Auto) 1 % (0-3) Basophils (%) (Auto) 0 % (0-3) Neutrophils # (Auto) 15.5 x10^3/uL (1.8-7.7) Lymphocytes # (Auto) 1.2 x10^3/uL (1.0-4.8) Monocytes # (Auto) 1.0 x10^3/uL (0.0-1.1) Eosinophils # (Auto) 0.2 x10^3/uL (0.0-0.7) Basophils # (Auto) 0.0 x10^3/uL (0.0-0.2) Sodium Level 135 mmol/L (136-145) Potassium Level 4.5 mmol/L (3.5-5.1) Chloride Level 103 mmol/L (98-107) Carbon Dioxide Level 29 mmol/L (21-32) Anion Gap 3 (6-14) Blood Urea Nitrogen 19 mg/dL (7-20) Creatinine 0.5 mg/dL (0.6-1.0) Estimated GFR (Cockcroft-Gault) 131.1 Glucose Level 155 mg/dL (70-99) Calcium Level 9.2 mg/dL (8.5-10.1) Phosphorus Level 3.4 mg/dL (2.6-4.7) Magnesium Level 1.8 mg/dL (1.8-2.4) Triglycerides Level 207 mg/dL (0-150) Test 10/24/19 06:21 10/24/19 11:56 10/24/19 16:51 10/25/19 00:00 Glucose (Fingerstick) 151 mg/dL (70-99) 154 mg/dL (70-99) 153 mg/dL (70-99) 123 mg/dL (70-99) Test 10/25/19 05:20 10/25/19 05:32 White Blood Count 15.0 x10^3/uL (4.0-11.0) Red Blood Count 2.54 x10^6/uL (3.50-5.40) Hemoglobin 7.5 g/dL (12.0-15.5) Hematocrit 22.5 % (36.0-47.0) Mean Corpuscular Volume 89 fL (79-100) Mean Corpuscular Hemoglobin 30 pg (25-35) Mean Corpuscular Hemoglobin Concent 33 g/dL (31-37) Red Cell Distribution Width 14.8 % (11.5-14.5) Platelet Count 414 x10^3/uL (140-400) Neutrophils (%) (Auto) 86 % (31-73) Lymphocytes (%) (Auto) 7 % (24-48) Monocytes (%) (Auto) 6 % (0-9) Eosinophils (%) (Auto) 1 % (0-3) Basophils (%) (Auto) 0 % (0-3) Neutrophils # (Auto) 12.9 x10^3/uL (1.8-7.7) Lymphocytes # (Auto) 1.0 x10^3/uL (1.0-4.8) Monocytes # (Auto) 0.9 x10^3/uL (0.0-1.1) Eosinophils # (Auto) 0.2 x10^3/uL (0.0-0.7) Basophils # (Auto) 0.0 x10^3/uL (0.0-0.2) Glucose (Fingerstick) 159 mg/dL (70-99) Laboratory Tests Test 10/24/19 11:56 10/24/19 16:51 10/25/19 00:00 10/25/19 05:20 Glucose (Fingerstick) 154 mg/dL (70-99) 153 mg/dL (70-99) 123 mg/dL (70-99) White Blood Count 15.0 x10^3/uL (4.0-11.0) Red Blood Count 2.54 x10^6/uL (3.50-5.40) Hemoglobin 7.5 g/dL (12.0-15.5) Hematocrit 22.5 % (36.0-47.0) Mean Corpuscular Volume 89 fL (79-100) Mean Corpuscular Hemoglobin 30 pg (25-35) Mean Corpuscular Hemoglobin Concent 33 g/dL (31-37) Red Cell Distribution Width 14.8 % (11.5-14.5) Platelet Count 414 x10^3/uL (140-400) Neutrophils (%) (Auto) 86 % (31-73) Lymphocytes (%) (Auto) 7 % (24-48) Monocytes (%) (Auto) 6 % (0-9) Eosinophils (%) (Auto) 1 % (0-3) Basophils (%) (Auto) 0 % (0-3) Neutrophils # (Auto) 12.9 x10^3/uL (1.8-7.7) Lymphocytes # (Auto) 1.0 x10^3/uL (1.0-4.8) Monocytes # (Auto) 0.9 x10^3/uL (0.0-1.1) Eosinophils # (Auto) 0.2 x10^3/uL (0.0-0.7) Basophils # (Auto) 0.0 x10^3/uL (0.0-0.2) Test 10/25/19 05:32 Glucose (Fingerstick) 159 mg/dL (70-99) Problem List Problems Medical Problems: (1) Acute pancreatitis Status: Acute (2) Cholelithiasis Status: Acute Assessment/Plan s/p xlap cont supportive care cont tube feeds. Justicifation of Admission Dx: Justifications for Admission: Justification of Admission Dx: Yes DAVON SIMMS MD Oct 25, 2019 09:50
--- NOTE | 2019-10-25 10:45 | NUR ---
SS following up with discharge planning. SS reviewed pt chart and discussed with pt RN. Pt remains on the vent at this time. Pt on TPN, IV Micafungin, and IV Meropenem. Pt has J Tube and all drains remain. Pt off Vasopressin. SS will continue to follow for discharge planning.
--- NOTE | 2019-10-25 11:27 | PDOC ---
Objective: Objective: D/w nurse - will wake up, not following commands, tolerating tube feeds, weaning vasopressin. Vital Signs: Vital Signs Date Time Temp Pulse Resp B/P (MAP) Pulse Ox O2 Delivery O2 Flow Rate FiO2 10/25/19 11:00 105 14 109/56 (73) 100 Ventilator 10/25/19 08:00 97.8 97.8 10/25/19 00:25 40.0 Labs: Laboratory Tests Test 10/24/19 11:56 10/24/19 16:51 10/25/19 00:00 10/25/19 05:32 Glucose (Fingerstick) 154 mg/dL (70-99) 153 mg/dL (70-99) 123 mg/dL (70-99) 159 mg/dL (70-99) PE: GEN: chronically ill LUNGS: trach/vent, clear HEART: mildly tachycardic ABD: drains... G tube bilious, J tube w/ feeds NEURO/PSYCH: sleeping A/P: Severe gallstone pancreatitis s/p subtotal cholecystectomy, gastrojejunostomy placement, pancreatic necrosectomy -- Continue support per GI. Justicifation of Admission Dx: Justifications for Admission: Justification of Admission Dx: Yes CYNDEE FALCON Oct 25, 2019 11:27
[2019-10-25] MEDS: TPN PER PHARMACY MC PRN (12:05)
--- NOTE | 2019-10-25 12:05 | NUR ---
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, 8 inches Weight: 95.0 kg Current diet: NPO LABS: Sodium: 135 Potassium: 4.5 Chloride: 103 Calcium: 9.2 Corrected Calcium: 11.68 Magnesium: 1.8 CO2: 29 SCr: 0.6 Glucose: 151 Albumin: 0.9 AST: 28 ALT: 68 TPN FORMULA: TPN TYPE: Central Continuous AMINO ACIDS: 80 gm DEXTROSE: 250 gm LIPIDS: 20 gm SODIUM CHLORIDE: 110 mEq POTASSIUM CHLORIDE: 30 mEq POTASSIUM ACETATE: 30 mEq MAGNESIUM: 15 mEq INSULIN: 15 units MULTIPLE VITAMIN: 10 ml TRACE ELEMENTS: 1 ml TPN PLAN: No labs today. Cont same formula. R: Continue TPN Will monitor electrolytes, glucose, and tolerance to TPN. Raeann Mcdonnell RPH, 10/25/19 [id number]
--- NOTE | 2019-10-25 14:08 | PDOC ---
PROGRESS NOTES Chief Complaint Chief Complaint late entry, pt seen 7.6, tank, discussed wtih RN, then the computers went down Acute hypoxic Respiratory failure required mechanical ventilation Tracheostomy bilateral pleural effusions/pulm edema s/p Throacentesis on 10/03/2019 Severe Acute gallstone pancreatitis (not a surgical candidate at this time) with necrosis Acute kidney failure now requiring dialysis Gallstones (Calculus of gallbladder with acute cholecystitis without obstruction) HTN Intractable pain Intractable nausea Covid 19 negative. Acute on chronic anemia EEG: No seizure activityFever - better currently - intermittent could be from underlying pancreatitis blood cults 08/21 - neg so far ? Ileus with vomiting Abd distention - U/S and CT reviewed s/p 0.4 L of opaque, debris-containing ascites was removed 08/23 Acute pancreatitis with persistent necrosis Gallstone pancreatitis with necrosis. -CT A/P 09/23 showed multiple pseudocysts, slight larger on the right. s/p drains x 3, 09/24. + PSAE (MDRO-R Cefepime, Zosyn ALEXANDRA < 64) and yeast, -s/p drain 08/14. C. parapsilosis. s/p drain 08/23 + yeast & high amylase; s/p additional drain on 08/25. Drains removed. Ascites s/p paracentesis 08/02 & 08/23. C. parapsilosis JUANA. off HD. A large fluid collection in the pancreatic bed has slightly decreased in size, described below, the pancreas itself is difficult to visualize, which could be due to necrosis or obscuration of pancreatic parenchyma from the surrounding fluid collection.10/02 - 08/14 status post KAYLIN drain placement + C paropsilosis. s/p additional drains 08/25 Anemia - S/p PRBCs Cholelithiasis with thickening of the gallbladder wall. Leucocytosis improving JUANA, hyperkalemia, Metabolic acidosis off dialysis hypocalcemia Prediabetes HTN s/p trach ESRD on HD Hyperglycemia severe protein-caloric malnutrition Moderate to large left pleural effusion with atelectasis and collapse of most of the left lower lobe, stable Dispo - ICU, critically ill Poor prognosis History of Present Illness History of Present Illness 10/24, awake on vent weaning sedation cont other, . seen and evaluated, still with marked drainage tube cont prognosis still poor, but improving slowly Vitals Vitals Vital Signs Date Time Temp Pulse Resp B/P (MAP) Pulse Ox O2 Delivery O2 Flow Rate FiO2 10/25/19 14:00 103 14 119/76 (90) 100 Ventilator 10/25/19 12:00 96.9 96.9 10/25/19 00:25 40.0 Physical Exam Physical Exam GENERAL: Alert but not responsive. ill appearing HEENT: Pupils equal, oral cavity dry. + NGT NECK: Tracheostomy LUNGS: Diminished aeration bases, CT on left HEART: S1, S2, regular w/ PVCs ABDOMEN: Sightly Distended, bowel sounds hypoactive, soft, goyal x 2, 3 KAYLIN drains, G-J tube and + wound vac : Lind in place EXTREMITIES: Generalized edema, no cyanosis. SCDs & Podus boots bilaterally SKIN: warm touch. No signs of rash. LUE-PICC without signs of complications LUE art-line out, mottling left forearm about ole art-line site is improving, some better. RP palpable, cap refill brisk. NEURO: alert but not responsive - ? tracking General: Alert, No acute distress Heart: Regular rate (SR/ST), Other (distant heart sounds) Lungs: Crackles Abdomen: Soft, Other (tubes in place, G-tube portion with bilious output, manny J tube feeds, various drains with decreasing output) Extremities: Other (Diffuse edema) Skin: No rashes, No significant lesion Labs LABS Laboratory Tests Test 10/24/19 16:51 10/25/19 00:00 10/25/19 05:20 10/25/19 05:32 Glucose (Fingerstick) 153 mg/dL (70-99) 123 mg/dL (70-99) 159 mg/dL (70-99) White Blood Count 15.0 x10^3/uL (4.0-11.0) Red Blood Count 2.54 x10^6/uL (3.50-5.40) Hemoglobin 7.5 g/dL (12.0-15.5) Hematocrit 22.5 % (36.0-47.0) Mean Corpuscular Volume 89 fL (79-100) Mean Corpuscular Hemoglobin 30 pg (25-35) Mean Corpuscular Hemoglobin Concent 33 g/dL (31-37) Red Cell Distribution Width 14.8 % (11.5-14.5) Platelet Count 414 x10^3/uL (140-400) Neutrophils (%) (Auto) 86 % (31-73) Lymphocytes (%) (Auto) 7 % (24-48) Monocytes (%) (Auto) 6 % (0-9) Eosinophils (%) (Auto) 1 % (0-3) Basophils (%) (Auto) 0 % (0-3) Neutrophils # (Auto) 12.9 x10^3/uL (1.8-7.7) Lymphocytes # (Auto) 1.0 x10^3/uL (1.0-4.8) Monocytes # (Auto) 0.9 x10^3/uL (0.0-1.1) Eosinophils # (Auto) 0.2 x10^3/uL (0.0-0.7) Basophils # (Auto) 0.0 x10^3/uL (0.0-0.2) Test 10/25/19 12:21 Glucose (Fingerstick) 164 mg/dL (70-99) Assessment and Plan Assessmemt and Plan Problems Medical Problems: (1) Acute pancreatitis Status: Acute (2) Cholelithiasis Status: Acute Comment Review of Relevant I have reviewed the following items kolby (where applicable) has been applied. Labs Laboratory Tests Test 10/23/19 18:06 10/23/19 23:53 10/24/19 06:15 10/24/19 06:21 Glucose (Fingerstick) 132 mg/dL (70-99) 147 mg/dL (70-99) 151 mg/dL (70-99) White Blood Count 18.0 x10^3/uL (4.0-11.0) Red Blood Count 2.62 x10^6/uL (3.50-5.40) Hemoglobin 7.7 g/dL (12.0-15.5) Hematocrit 23.4 % (36.0-47.0) Mean Corpuscular Volume 89 fL (79-100) Mean Corpuscular Hemoglobin 30 pg (25-35) Mean Corpuscular Hemoglobin Concent 33 g/dL (31-37) Red Cell Distribution Width 14.5 % (11.5-14.5) Platelet Count 375 x10^3/uL (140-400) Neutrophils (%) (Auto) 86 % (31-73) Lymphocytes (%) (Auto) 7 % (24-48) Monocytes (%) (Auto) 6 % (0-9) Eosinophils (%) (Auto) 1 % (0-3) Basophils (%) (Auto) 0 % (0-3) Neutrophils # (Auto) 15.5 x10^3/uL (1.8-7.7) Lymphocytes # (Auto) 1.2 x10^3/uL (1.0-4.8) Monocytes # (Auto) 1.0 x10^3/uL (0.0-1.1) Eosinophils # (Auto) 0.2 x10^3/uL (0.0-0.7) Basophils # (Auto) 0.0 x10^3/uL (0.0-0.2) Sodium Level 135 mmol/L (136-145) Potassium Level 4.5 mmol/L (3.5-5.1) Chloride Level 103 mmol/L (98-107) Carbon Dioxide Level 29 mmol/L (21-32) Anion Gap 3 (6-14) Blood Urea Nitrogen 19 mg/dL (7-20) Creatinine 0.5 mg/dL (0.6-1.0) Estimated GFR (Cockcroft-Gault) 131.1 Glucose Level 155 mg/dL (70-99) Calcium Level 9.2 mg/dL (8.5-10.1) Phosphorus Level 3.4 mg/dL (2.6-4.7) Magnesium Level 1.8 mg/dL (1.8-2.4) Triglycerides Level 207 mg/dL (0-150) Test 10/24/19 11:56 10/24/19 16:51 10/25/19 00:00 10/25/19 05:20 Glucose (Fingerstick) 154 mg/dL (70-99) 153 mg/dL (70-99) 123 mg/dL (70-99) White Blood Count 15.0 x10^3/uL (4.0-11.0) Red Blood Count 2.54 x10^6/uL (3.50-5.40) Hemoglobin 7.5 g/dL (12.0-15.5) Hematocrit 22.5 % (36.0-47.0) Mean Corpuscular Volume 89 fL (79-100) Mean Corpuscular Hemoglobin 30 pg (25-35) Mean Corpuscular Hemoglobin Concent 33 g/dL (31-37) Red Cell Distribution Width 14.8 % (11.5-14.5) Platelet Count 414 x10^3/uL (140-400) Neutrophils (%) (Auto) 86 % (31-73) Lymphocytes (%) (Auto) 7 % (24-48) Monocytes (%) (Auto) 6 % (0-9) Eosinophils (%) (Auto) 1 % (0-3) Basophils (%) (Auto) 0 % (0-3) Neutrophils # (Auto) 12.9 x10^3/uL (1.8-7.7) Lymphocytes # (Auto) 1.0 x10^3/uL (1.0-4.8) Monocytes # (Auto) 0.9 x10^3/uL (0.0-1.1) Eosinophils # (Auto) 0.2 x10^3/uL (0.0-0.7) Basophils # (Auto) 0.0 x10^3/uL (0.0-0.2) Test 10/25/19 05:32 10/25/19 12:21 Glucose (Fingerstick) 159 mg/dL (70-99) 164 mg/dL (70-99) Laboratory Tests Test 10/24/19 16:51 10/25/19 00:00 10/25/19 05:20 10/25/19 05:32 Glucose (Fingerstick) 153 mg/dL (70-99) 123 mg/dL (70-99) 159 mg/dL (70-99) White Blood Count 15.0 x10^3/uL (4.0-11.0) Red Blood Count 2.54 x10^6/uL (3.50-5.40) Hemoglobin 7.5 g/dL (12.0-15.5) Hematocrit 22.5 % (36.0-47.0) Mean Corpuscular Volume 89 fL (79-100) Mean Corpuscular Hemoglobin 30 pg (25-35) Mean Corpuscular Hemoglobin Concent 33 g/dL (31-37) Red Cell Distribution Width 14.8 % (11.5-14.5) Platelet Count 414 x10^3/uL (140-400) Neutrophils (%) (Auto) 86 % (31-73) Lymphocytes (%) (Auto) 7 % (24-48) Monocytes (%) (Auto) 6 % (0-9) Eosinophils (%) (Auto) 1 % (0-3) Basophils (%) (Auto) 0 % (0-3) Neutrophils # (Auto) 12.9 x10^3/uL (1.8-7.7) Lymphocytes # (Auto) 1.0 x10^3/uL (1.0-4.8) Monocytes # (Auto) 0.9 x10^3/uL (0.0-1.1) Eosinophils # (Auto) 0.2 x10^3/uL (0.0-0.7) Basophils # (Auto) 0.0 x10^3/uL (0.0-0.2) Test 10/25/19 12:21 Glucose (Fingerstick) 164 mg/dL (70-99) Microbiology 10/18/19 Gram Stain - Final, Complete 10/18/19 Aerobic and Anaerobic Culture - Final, Complete 10/18/19 Antimicrobic Susceptibility - Final, Complete 10/16/19 Blood Culture - Final, Complete NO GROWTH AFTER 5 DAYS 10/03/19 Gram Stain - Final, Complete 10/03/19 Aerobic and Anaerobic Culture - Final, Complete 10/01/19 Gram Stain Evaluation - Final, Complete 10/01/19 Respiratory Culture - Final, Complete 10/01/19 Antimicrobic Susceptibility - Final, Complete 09/25/19 Urine Culture - Final, Complete 09/17/19 Gram Stain - Final, Complete 09/17/19 Aerobic Culture - Final, Complete Medications Current Medications Sodium Chloride 1,000 ml @ 1,000 mls/hr Q1H IV Last administered on 07/04/19at 03:00; Start 07/04/19 at 03:00; Stop 07/04/19 at 03:59; Status DC Ondansetron HCl (Zofran) 4 mg 1X ONCE IVP Last administered on 07/04/19at 03:27; Start 07/04/19 at 03:00; Stop 07/04/19 at 03:01; Status DC Morphine Sulfate (Morphine Sulfate) 4 mg 1X ONCE IV ; Start 07/04/19 at 03:00; Stop 07/04/19 at 03:01; Status Cancel Ketorolac Tromethamine (Toradol 30mg Vial) 30 mg 1X ONCE IV Last administered on 07/04/19at 02:54; Start 07/04/19 at 03:00; Stop 07/04/19 at 03:01; Status DC Fentanyl Citrate (Fentanyl 2ml Vial) 25 mcg 1X ONCE IVP Last administered on 07/04/19at 03:23; Start 07/04/19 at 03:30; Stop 07/04/19 at 03:31; Status DC Fentanyl Citrate (Fentanyl 2ml Vial) 100 mcg STK-MED ONCE .ROUTE ; Start 07/04/19 at 03:18; Stop 07/04/19 at 03:18; Status DC Iohexol (Omnipaque 350 Mg/ml) 90 ml 1X ONCE IV Last administered on 07/04/19at 03:25; Start 07/04/19 at 03:30; Stop 07/04/19 at 03:31; Status DC Info (CONTRAST GIVEN -- Rx MONITORING) 1 each PRN DAILY PRN MC SEE COMMENTS; Start 07/04/19 at 03:30; Stop 07/06/19 at 03:29; Status DC Hydromorphone HCl (Dilaudid) 0.5 mg 1X ONCE IV Last administered on 07/04/19at 03:55; Start 07/04/19 at 04:30; Stop 07/04/19 at 04:32; Status DC Ondansetron HCl (Zofran) 4 mg PRN Q8HRS PRN IV NAUSEA/VOMITING 1ST CHOICE; Start 07/04/19 at 05:00; Stop 07/04/19 at 09:27; Status DC Morphine Sulfate (Morphine Sulfate) 2 mg PRN Q2HR PRN IV SEVERE PAIN 7-10 Last administered on 07/05/19at 12:26; Start 07/04/19 at 05:00; Stop 07/05/19 at 14:15; Status DC Sodium Chloride 1,000 ml @ 125 mls/hr Q8H IV Last administered on 07/04/19at 20:56; Start 07/04/19 at 05:00; Stop 07/05/19 at 04:59; Status DC Hydromorphone HCl (Dilaudid) 0.5 mg PRN Q3HRS PRN IV SEVERE PAIN 7-10 Last administered on 07/05/19at 10:06; Start 07/04/19 at 05:00; Stop 07/05/19 at 12:01; Status DC Piperacillin Sod/ Tazobactam Sod 4.5 gm/Sodium Chloride 100 ml @ 200 mls/hr 1X ONCE IV Last administered on 07/04/19at 05:44; Start 07/04/19 at 06:00; Stop 07/04/19 at 06:29; Status DC Ondansetron HCl (Zofran) 4 mg PRN Q4HRS PRN IV NAUSEA/VOMITING 1ST CHOICE Last administered on 10/15/19at 13:37; Start 07/04/19 at 09:30 Insulin Human Lispro (HumaLOG) 0-9 UNITS Q6HRS SQ Last administered on 10/25/19at 12:24; Start 07/04/19 at 09:30 Dextrose (Dextrose 50%-Water Syringe) 12.5 gm PRN Q15MIN PRN IV SEE COMMENTS; Start 07/04/19 at 09:30 Pantoprazole Sodium (PROTONIX VIAL for IV PUSH) 40 mg DAILYAC IVP Last administered on 10/25/19at 08:32; Start 07/04/19 at 11:30 Prochlorperazine Edisylate (Compazine) 10 mg PRN Q6HRS PRN IV NAUSEA/VOMITING, 2nd CHOICE Last administered on 10/15/19at 10:53; Start 07/04/19 at 17:45 Atenolol (Tenormin) 100 mg DAILY PO ; Start 07/05/19 at 09:00; Stop 07/04/19 at 20:08; Status DC Metoprolol Tartrate (Lopressor Vial) 2.5 mg Q6HRS IVP Last administered on 07/05/19at 05:51; Start 07/04/19 at 20:15; Stop 07/05/19 at 10:02; Status DC Metoprolol Tartrate (Lopressor Vial) 5 mg Q6HRS IVP Last administered on 07/14/19at 00:12; Start 07/05/19 at 10:15; Stop 07/16/19 at 08:48; Status DC Hydromorphone HCl (Dilaudid) 1 mg PRN Q3HRS PRN IV SEVERE PAIN 7-10 Last a dministered on 07/11/19at 05:13; Start 07/05/19 at 12:00; Stop 07/19/19 at 00:25; Status DC Lidocaine HCl (Buffered Lidocaine 1%) 3 ml STK-MED ONCE .ROUTE ; Start 07/05/19 at 12:55; Stop 07/05/19 at 12:56; Status DC Albumin Human 500 ml @ 125 mls/hr 1X ONCE IV Last administered on 07/05/19at 14:33; Start 07/05/19 at 14:30; Stop 07/05/19 at 18:32; Status DC Norepinephrine Bitartrate 8 mg/ Dextrose 258 ml @ 17.299 mls/ hr CONT PRN IV PER PROTOCOL Last administered on 08/02/19at 12:48; Start 07/05/19 at 15:30; Stop 08/05/19 at 09:19; Status DC Sodium Chloride 1,000 ml @ 125 mls/hr Q8H IV Last administered on 07/05/19at 21:04; Start 07/05/19 at 16:00; Stop 07/06/19 at 02:42; Status DC Albumin Human 500 ml @ 125 mls/hr PRN BID PRN IV After every 2L NSS & BP < 90mm Last administered on 10/18/19at 16:06; Start 07/05/19 at 16:00; Stop 10/21/19 at 09:30; Status DC Iohexol (Omnipaque 300 Mg/ml) 60 ml 1X ONCE IV Last administered on 07/05/19at 17:20; Start 07/05/19 at 17:00; Stop 07/05/19 at 17:01; Status DC Info (CONTRAST GIVEN -- Rx MONITORING) 1 each PRN DAILY PRN MC SEE COMMENTS; Start 07/05/19 at 17:00; Stop 07/07/19 at 16:59; Status DC Meropenem 1 gm/ Sodium Chloride 100 ml @ 200 mls/hr Q8HRS IV Last administered on 07/06/19at 05:45; Start 07/05/19 at 20:00; Stop 07/06/19 at 08:48; Status DC Furosemide (Lasix) 40 mg 1X ONCE IVP Last administered on 07/05/19at 22:12; Start 07/05/19 at 22:30; Stop 07/05/19 at 22:31; Status DC Calcium Chloride 1000 mg/Sodium Chloride 110 ml @ 220 mls/hr 1X ONCE IV Last administered on 07/05/19at 22:11; Start 07/05/19 at 22:30; Stop 07/05/19 at 22:59; Status DC Albuterol Sulfate (Ventolin Neb Soln) 2.5 mg 1X ONCE NEB Last administered on 07/06/19at 00:56; Start 07/05/19 at 22:30; Stop 07/05/19 at 22:31; Status DC Insulin Human Regular (HumuLIN R VIAL) 5 unit 1X ONCE IV Last administered on 07/05/19at 22:14; Start 07/05/19 at 22:30; Stop 07/05/19 at 22:31; Status DC Magnesium Sulfate 50 ml @ 25 mls/hr 1X ONCE IV Last administered on 07/06/19at 02:57; Start 07/06/19 at 03:00; Stop 07/06/19 at 04:59; Status DC Calcium Gluconate 1000 mg/Sodium Chloride 110 ml @ 220 mls/hr 1X ONCE IV Last administered on 07/06/19at 02:46; Start 07/06/19 at 03:00; Stop 07/06/19 at 03:29; Status DC Sodium Chloride 1,000 ml @ 200 mls/hr Q5H IV Last administered on 07/06/19at 02:46; Start 07/06/19 at 03:00; Stop 07/06/19 at 10:21; Status DC Calcium Gluconate 1000 mg/Sodium Chloride 110 ml @ 220 mls/hr 1X ONCE IV Last administered on 07/06/19at 03:21; Start 07/06/19 at 03:30; Stop 07/06/19 at 03:59; Status DC Sodium Bicarbonate 50 meq/Sodium Chloride 1,050 ml @ 75 mls/hr Q14H IV Last administered on 07/10/19at 21:10; Start 07/06/19 at 07:30; Stop 07/11/19 at 10:28; Status DC Calcium Gluconate 2000 mg/Sodium Chloride 120 ml @ 220 mls/hr 1X ONCE IV Last administered on 07/06/19at 09:05; Start 07/06/19 at 07:30; Stop 07/06/19 at 08:02; Status DC Lidocaine HCl (Xylocaine-Mpf 1% 2ml Vial) 2 ml STK-MED ONCE .ROUTE ; Start 07/06/19 at 08:47; Stop 07/06/19 at 08:47; Status DC Meropenem 500 mg/ Sodium Chloride 50 ml @ 100 mls/hr Q12HR IV Last administered on 07/11/19at 21:01; Start 07/06/19 at 18:00; Stop 07/12/19 at 07:58; Status DC Lidocaine HCl (Buffered Lidocaine 1%) 3 ml STK-MED ONCE .ROUTE ; Start 07/06/19 at 09:46; Stop 07/06/19 at 09:46; Status DC Lidocaine HCl (Buffered Lidocaine 1%) 6 ml 1X ONCE INJ Last administered on 07/06/19at 10:26; Start 07/06/19 at 10:15; Stop 07/06/19 at 10:16; Status DC Info (Tpn Per Pharmacy) 1 each PRN DAILY PRN MC SEE COMMENTS Last administered on 10/25/19at 12:05; Start 07/06/19 at 12:00 Sodium Chloride 1,000 ml @ 1,000 mls/hr Q1H PRN IV hypotension; Start 07/06/19 at 12:07; Stop 07/06/19 at 18:06; Status DC Diphenhydramine HCl (Benadryl) 25 mg 1X PRN PRN IV ITCHING; Start 07/06/19 at 12:15; Stop 07/07/19 at 12:14; Status DC Diphenhydramine HCl (Benadryl) 25 mg 1X PRN PRN IV ITCHING; Start 07/06/19 at 12:15; Stop 07/07/19 at 12:14; Status DC Sodium Chloride 1,000 ml @ 400 mls/hr Q2H30M PRN IV PATENCY; Start 07/06/19 at 12:07; Stop 07/07/19 at 00:06; Status DC Info (PHARMACY MONITORING -- do not chart) 1 each PRN DAILY PRN MC SEE COMMENTS; Start 07/06/19 at 12:15; Stop 07/08/19 at 08:13; Status DC Sodium Chloride 90 meq/Calcium Gluconate 10 meq/ Multivitamins 10 ml/Chromium/ Copper/Manganese/ Seleni/Zn 1 ml/ Total Parenteral Nutrition/Amino Acids/Dextrose/ Fat Emulsion Intravenous 55.005 ml @ 2.292 mls/hr TPN CONT IV ; Start 07/06/19 at 22:00; Stop 07/06/19 at 12:33; Status DC Info (Tpn Per Pharmacy) 1 each PRN DAILY PRN MC SEE COMMENTS; Start 07/06/19 at 12:30; Status UNV Sodium Chloride 90 meq/Calcium Gluconate 10 meq/ Multivitamins 10 ml/Chromium/ Copper/Manganese/ Seleni/Zn 0.5 ml/ Total Parenteral Nutrition/Amino Acids/Dextrose/ Fat Emulsion Intravenous 1,512 ml @ 63 mls/hr TPN CONT IV Last administered on 07/06/19at 22:06; Start 07/06/19 at 22:00; Stop 07/07/19 at 21:59; Status DC Calcium Carbonate/ Glycine (Tums) 500 mg PRN AFTMEALHC PRN PO INDIGESTION; Start 07/06/19 at 17:45; Stop 08/31/19 at 10:25; Status DC Calcium Gluconate (Calcium Gluconate) 2,000 mg 1X ONCE IVP Last administered on 07/07/19at 02:19; Start 07/07/19 at 02:15; Stop 07/07/19 at 02:16; Status DC Calcium Chloride 3000 mg/Sodium Chloride 1,030 ml @ 50 mls/hr [id number] IV Last administered on 07/09/19at 02:17; Start 07/07/19 at 08:00; Stop 07/09/19 at 15:23; Status DC Lorazepam (Ativan Inj) 1 mg PRN Q4HRS PRN IVP ANXIETY / AGITATION, 2nd choic Last administered on 08/05/19at 03:51; Start 07/07/19 at 09:00; Stop 08/05/19 at 09:19; Status DC Sodium Chloride 1,000 ml @ 1,000 mls/hr Q1H PRN IV hypotension; Start 07/07/19 at 08:56; Stop 07/07/19 at 14:55; Status DC Albumin Human 200 ml @ 200 mls/hr 1X PRN PRN IV Hypotension; Start 07/07/19 at 09:00; Stop 07/07/19 at 14:59; Status DC Diphenhydramine HCl (Benadryl) 25 mg 1X PRN PRN IV ITCHING; Start 07/07/19 at 09:00; Stop 07/08/19 at 08:59; Status DC Diphenhydramine HCl (Benadryl) 25 mg 1X PRN PRN IV ITCHING; Start 07/07/19 at 09:00; Stop 07/08/19 at 08:59; Status DC Sodium Chloride 1,000 ml @ 400 mls/hr Q2H30M PRN IV PATENCY; Start 07/07/19 at 08:56; Stop 07/07/19 at 20:55; Status DC Info (PHARMACY MONITORING -- do not chart) 1 each PRN DAILY PRN MC SEE COMMENTS; Start 07/07/19 at 09:00; Status UNV Info (PHARMACY MONITORING -- do not chart) 1 each PRN DAILY PRN MC SEE COMMENTS; Start 07/07/19 at 09:00; Stop 07/08/19 at 08:13; Status DC Digoxin (Lanoxin) 500 mcg 1X ONCE IV Last administered on 07/07/19at 10:04; Start 07/07/19 at 10:00; Stop 07/07/19 at 10:01; Status DC Digoxin (Lanoxin) 125 mcg 1X ONCE IV Last administered on 07/07/19at 17:10; Start 07/07/19 at 18:00; Stop 07/07/19 at 18:01; Status DC Magnesium Sulfate 100 ml @ 25 mls/hr 1X ONCE IV Last administered on 07/07/19at 12:48; Start 07/07/19 at 13:00; Stop 07/07/19 at 16:59; Status DC Sodium Chloride 90 meq/Magnesium Sulfate 10 meq/ Calcium Gluconate 20 meq/ Multivitamins 10 ml/Chromium/ Copper/Manganese/ Seleni/Zn 0.5 ml/ Total Parenteral Nutrition/Amino Acids/Dextrose/ Fat Emulsion Intravenous 1,512 ml @ 63 mls/hr TPN CONT IV Last administered on 07/07/19at 22:25; Start 07/07/19 at 22:00; Stop 07/08/19 at 21:59; Status DC Sodium Chloride 1,000 ml @ 1,000 mls/hr Q1H PRN IV hypotension; Start 07/08/19 at 08:05; Stop 07/08/19 at 14:04; Status DC Albumin Human 200 ml @ 200 mls/hr 1X ONCE IV Last administered on 07/08/19at 08:57; Start 07/08/19 at 08:15; Stop 07/08/19 at 09:14; Status DC Diphenhydramine HCl (Benadryl) 25 mg 1X PRN PRN IV ITCHING; Start 07/08/19 at 08:15; Stop 07/09/19 at 08:14; Status DC Diphenhydramine HCl (Benadryl) 25 mg 1X PRN PRN IV ITCHING; Start 07/08/19 at 08:15; Stop 07/09/19 at 08:14; Status DC Sodium Chloride 1,000 ml @ 400 mls/hr Q2H30M PRN IV PATENCY; Start 07/08/19 at 08:05; Stop 07/08/19 at 20:04; Status DC Info (PHARMACY MONITORING -- do not chart) 1 each PRN DAILY PRN MC SEE COMMENTS; Start 07/08/19 at 08:15; Stop 07/12/19 at 07:57; Status DC Sodium Chloride 90 meq/Potassium Chloride 15 meq/ Potassium Phosphate 10 mmol/ Magnesium Sulfate 10 meq/Calcium Gluconate 20 meq/ Multivitamins 10 ml/Chromium/ Copper/Manganese/ Seleni/Zn 0.5 ml/ Total Parenteral Nutrition/Amino Acids/Dextrose/ Fat Emulsion Intravenous 1,512 ml @ 63 mls/hr TPN CONT IV Last administered on 07/08/19at 21:01; Start 07/08/19 at 22:00; Stop 07/09/19 at 21:59; Status DC Potassium Chloride/Water 100 ml @ 100 mls/hr 1X ONCE IV Last administered on 07/08/19at 14:09; Start 07/08/19 at 14:00; Stop 07/08/19 at 14:59; Status DC Benzocaine (Hurricaine One) 1 spray 1X ONCE MM Last administered on 07/08/19at 16:38; Start 07/08/19 at 14:30; Stop 07/08/19 at 14:31; Status DC Lidocaine HCl (Glydo (Lidocaine) Jelly) 1 ramu 1X ONCE MM Last administered on 07/08/19at 16:38; Start 07/08/19 at 14:30; Stop 07/08/19 at 14:31; Status DC Linezolid/Dextrose 300 ml @ 300 mls/hr Q12HR IV Last administered on 07/14/19at 21:04; Start 07/08/19 at 20:00; Stop 07/15/19 at 07:50; Status DC Acetaminophen (Tylenol) 650 mg PRN Q6HRS PRN PO MILD PAIN / TEMP; Start 07/09/19 at 03:30; Stop 07/09/19 at 03:36; Status DC Acetaminophen (Tylenol) 650 mg PRN Q6HRS PRN PEG MILD PAIN / TEMP Last administered on 08/04/19at 19:56; Start 07/09/19 at 03:36; Stop 08/31/19 at 10:25; Status DC Sodium Chloride 1,000 ml @ 1,000 mls/hr Q1H PRN IV hypotension; Start 07/09/19 at 07:50; Stop 07/09/19 at 13:49; Status DC Albumin Human 200 ml @ 200 mls/hr 1X PRN PRN IV Hypotension; Start 07/09/19 at 08:00; Stop 07/09/19 at 13:59; Status DC Sodium Chloride (Normal Saline Flush) 10 ml 1X PRN PRN IV AP catheter pack; Start 07/09/19 at 08:00; Stop 07/10/19 at 07:59; Status DC Sodium Chloride (Normal Saline Flush) 10 ml 1X PRN PRN IV PRESSURE TESTER 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 catheter pack; Start 07/09/19 at 08:00; Stop 07/10/19 at 07:59; Status DC Sodium Chloride 1,000 ml @ 400 mls/hr Q2H30M PRN IV PATENCY; Start 07/09/19 at 07:50; Stop 07/09/19 at 19:49; Status DC Info (PHARMACY MONITORING -- do not chart) 1 each PRN DAILY PRN MC SEE COMMENTS; Start 07/09/19 at 08:00; Status UNV Info (PHARMACY MONITORING -- do not chart) 1 each PRN DAILY PRN MC SEE COMMENTS; Start 07/09/19 at 08:00; Stop 07/11/19 at 08:25; Status DC Sodium Chloride 90 meq/Potassium Chloride 15 meq/ Potassium Phosphate 10 mmol/ Magnesium Sulfate 10 meq/Calcium Gluconate 20 meq/ Multivitamins 10 ml/Chromium/ Copper/Manganese/ Seleni/Zn 0.5 ml/ Total Parenteral Nutrition/Amino Acids/Dextrose/ Fat Emulsion Intravenous 1,512 ml @ 63 mls/hr TPN CONT IV Last administered on 07/09/19at 20:57; Start 07/09/19 at 22:00; Stop 07/10/19 at 21:59; Status DC Sodium Chloride 90 meq/Potassium Chloride 15 meq/ Potassium Phosphate 15 mmol/ Magnesium Sulfate 10 meq/Calcium Gluconate 20 meq/ Multivitamins 10 ml/Chromium/ Copper/Manganese/ Seleni/Zn 0.5 ml/ Total Parenteral Nutrition/Amino Aci ds/Dextrose/ Fat Emulsion Intravenous 1,512 ml @ 63 mls/hr TPN CONT IV ; Start 07/10/19 at 22:00; Stop 07/10/19 at 14:16; Status DC Sodium Chloride 90 meq/Potassium Chloride 15 meq/ Potassium Phosphate 15 mmol/ Magnesium Sulfate 10 meq/Calcium Gluconate 20 meq/ Multivitamins 10 ml/Chromium/ Copper/Manganese/ Seleni/Zn 0.5 ml/ Total Parenteral Nutrition/Amino Acids/Dextrose/ Fat Emulsion Intravenous 1,200 ml @ 50 mls/hr TPN CONT IV ; Start 07/10/19 at 22:00; Stop 07/10/19 at 14:17; Status DC Sodium Chloride 90 meq/Potassium Chloride 15 meq/ Potassium Phosphate 10 mmol/ Magnesium Sulfate 10 meq/Calcium Gluconate 20 meq/ Multivitamins 10 ml/Chromium/ Copper/Manganese/ Seleni/Zn 0.5 ml/ Total Parenteral Nutrition/Amino Acids/Dextrose/ Fat Emulsion Intravenous 1,200 ml @ 50 mls/hr TPN CONT IV Last administered on 07/10/19at 23:29; Start 07/10/19 at 22:00; Stop 07/11/19 at 21:59; Status DC Sodium Chloride 1,000 ml @ 1,000 mls/hr Q1H PRN IV hypotension; Start 07/11/19 at 07:28; Stop 07/11/19 at 13:27; Status DC Albumin Human 200 ml @ 200 mls/hr 1X ONCE IV Last administered on 07/11/19at 08:51; Start 07/11/19 at 07:30; Stop 07/11/19 at 08:29; Status DC Diphenhydramine HCl (Benadryl) 25 mg 1X PRN PRN IV ITCHING; Start 07/11/19 at 07:30; Stop 07/12/19 at 07:29; Status DC Diphenhydramine HCl (Benadryl) 25 mg 1X PRN PRN IV ITCHING; Start 07/11/19 at 07:30; Stop 07/12/19 at 07:29; Status DC Sodium Chloride 1,000 ml @ 400 mls/hr Q2H30M PRN IV PATENCY; Start 07/11/19 at 07:28; Stop 07/11/19 at 19:27; Status DC Info (PHARMACY MONITORING -- do not chart) 1 each PRN DAILY PRN MC SEE COMMENTS; Start 07/11/19 at 07:30; Stop 07/22/19 at 13:01; Status DC Metronidazole 100 ml @ 100 mls/hr Q6HRS IV Last administered on 07/27/19at 06:26; Start 07/11/19 at 08:30; Stop 07/27/19 at 09:58; Status DC Micafungin Sodium 100 mg/Dextrose 100 ml @ 100 mls/hr Q24H IV Last administered on 08/18/19at 08:18; Start 07/11/19 at 09:00; Stop 08/18/19 at 20:58; Status DC Propofol 0 ml @ As Directed STK-MED ONCE IV ; Start 07/11/19 at 07:53; Stop 07/11/19 at 07:53; Status DC Etomidate (Amidate) 20 mg STK-MED ONCE IV ; Start 07/11/19 at 07:53; Stop 07/11/19 at 07:54; Status DC Midazolam HCl (Versed) 5 mg STK-MED ONCE .ROUTE ; Start 07/11/19 at 07:57; Stop 07/11/19 at 07:57; Status DC Fentanyl Citrate 30 ml @ 0 mls/hr CONT PRN IV SEE PROTOCOL Last administered on 08/05/19at 06:12; Start 07/11/19 at 08:15; Stop 08/05/19 at 09:19; Status DC Artificial Tears (Artificial Tears) 1 drop PRN Q1HR PRN OU DRY EYE, 1st choice; Start 07/11/19 at 08:15; Stop 08/17/19 at 05:31; Status DC Midazolam HCl 50 mg/Sodium Chloride 50 ml @ 0 mls/hr CONT PRN IV SEE PROTOCOL Last administered on 07/14/19at 22:39; Start 07/11/19 at 08:15; Stop 07/16/19 at 15:59; Status DC Etomidate (Amidate) 8 mg 1X ONCE IV Last administered on 07/11/19at 08:33; Start 07/11/19 at 08:30; Stop 07/11/19 at 08:31; Status DC Succinylcholine Chloride (Anectine) 120 mg 1X ONCE IV Last administered on 07/11/19at 08:34; Start 07/11/19 at 08:30; Stop 07/11/19 at 08:31; Status DC Midazolam HCl (Versed) 5 mg 1X ONCE IV ; Start 07/11/19 at 08:30; Stop 07/11/19 at 08:31; Status DC Potassium Chloride 15 meq/ Bicarbonate Dialysis Soln w/ out KCl 5,007.5 ml @ 1,000 mls/ hr Q5H1M IV Last administered on 07/12/19at 11:11; Start 07/11/19 at 12:00; Stop 07/12/19 at 11:15; Status DC Potassium Chloride 15 meq/ Bicarbonate Dialysis Soln w/ out KCl 5,007.5 ml @ 1,000 mls/ hr Q5H1M IV Last administered on 07/12/19at 11:12; Start 07/11/19 at 12:00; Stop 07/12/19 at 11:17; Status DC Potassium Chloride 15 meq/ Bicarbonate Dialysis Soln w/ out KCl 5,007.5 ml @ 1,000 mls/ hr Q5H1M IV Last administered on 07/12/19at 11:11; Start 07/11/19 at 12:00; Stop 07/12/19 at 11:19; Status DC Sodium Chloride 90 meq/Potassium Chloride 15 meq/ Potassium Phosphate 10 mmol/ Magnesium Sulfate 10 meq/Calcium Gluconate 20 meq/ Multivitamins 10 ml/Chromium/ Copper/Manganese/ Seleni/Zn 0.5 ml/ Total Parenteral Nutrition/Amino Acids/Dextrose/ Fat Emulsion Intravenous 1,400 ml @ 58.333 mls/ hr TPN CONT IV Last administered on 07/11/19at 21:42; Start 07/11/19 at 22:00; Stop 07/12/19 at 21:59; Status DC Heparin Sodium (Porcine) (Heparin Sodium) 5,000 unit Q8HRS SQ Last administered on 07/16/19at 05:55; Start 07/11/19 at 15:00; Stop 07/16/19 at 13:28; Status DC Meropenem 500 mg/ Sodium Chloride 50 ml @ 100 mls/hr Q6HRS IV Last administered on 07/13/19at 06:00; Start 07/12/19 at 09:00; Stop 07/13/19 at 07:29; Status DC Potassium Phosphate 20 mmol/ Sodium Chloride 106.6667 ml @ 51.667 m... 1X ONCE IV Last administered on 07/12/19at 11:22; Start 07/12/19 at 10:15; Stop 07/12/19 at 12:18; Status DC Acetaminophen (Tylenol Supp) 650 mg PRN Q6HRS PRN SD MILD PAIN / TEMP > 100.3'F Last administered on 10/17/19at 18:16; Start 07/12/19 at 10:30 Potassium Chloride/Water 100 ml @ 100 mls/hr Q1H IV Last administered on 07/12/19at 12:12; Start 07/12/19 at 11:00; Stop 07/12/19 at 12:59; Status DC Potassium Chloride 20 meq/ Bicarbonate Dialysis Soln w/ out KCl 5,010 ml @ 1,000 mls/hr Q5H1M IV Last administered on 07/13/19at 08:48; Start 07/12/19 at 12:00; Stop 07/13/19 at 13:03; Status DC Potassium Chloride 20 meq/ Bicarbonate Dialysis Soln w/ out KCl 5,010 ml @ 1,000 mls/hr Q5H1M IV Last administered on 07/17/19at 14:52; Start 07/12/19 at 11:30; Stop 07/17/19 at 19:59; Status DC Potassium Chloride 20 meq/ Bicarbonate Dialysis Soln w/ out KCl 5,010 ml @ 1,000 mls/hr Q5H1M IV Last administered on 07/17/19at 14:53; Start 07/12/19 at 11:30; Stop 07/17/19 at 19:59; Status DC Sodium Chloride 90 meq/Potassium Chloride 15 meq/ Potassium Phosphate 15 mmol/ Magnesium Sulfate 10 meq/Calcium Gluconate 15 meq/ Multivitamins 10 ml/Chromium/ Copper/Manganese/ Seleni/Zn 0.5 ml/ Total Parenteral Nutrition/Amino Acids/Dextrose/ Fat Emulsion Intravenous 1,400 ml @ 58.333 mls/ hr TPN CONT IV Last administered on 07/12/19at 22:17; Start 07/12/19 at 22:00; Stop 07/13/19 at 21:59; Status DC Cefepime HCl (Maxipime) 2 gm Q12HR IVP Last administered on 07/26/19at 20:56; Start 07/13/19 at 09:00; Stop 07/27/19 at 09:58; Status DC Daptomycin 500 mg/ Sodium Chloride 50 ml @ 100 mls/hr Q48H IV Last administered on 07/29/19at 09:57; Start 07/13/19 at 08:30; Stop 07/29/19 at 10:07; Status DC Lidocaine HCl (Buffered Lidocaine 1%) 3 ml 1X ONCE INJ Last administered on 07/13/19at 10:27; Start 07/13/19 at 10:30; Stop 07/13/19 at 10:31; Status DC Potassium Phosphate 20 mmol/ Sodium Chloride 106.6667 ml @ 51.667 m... 1X ONCE IV Last administered on 07/13/19at 12:51; Start 07/13/19 at 13:00; Stop 07/13/19 at 15:03; Status DC Sodium Chloride 90 meq/Potassium Chloride 15 meq/ Potassium Phosphate 18 mmol/ Magnesium Sulfate 8 meq/Calcium Gluconate 15 meq/ Multivitamins 10 ml/Chromium/ Copper/Manganese/ Seleni/Zn 0.5 ml/ Total Parenteral Nutrition/Amino Acids/Dextrose/ Fat Emulsion Intravenous 1,400 ml @ 58.333 mls/ hr TPN CONT IV Last administered on 07/13/19at 22:16; Start 07/13/19 at 22:00; Stop 07/14/19 at 21:59; Status DC Potassium Chloride 20 meq/ Bicarbonate Dialysis Soln w/ out KCl 5,010 ml @ 1,000 mls/hr Q5H1M IV Last administered on 07/17/19at 14:54; Start 07/13/19 at 16:00; Stop 07/17/19 at 19:59; Status DC Multi-Ingred Cream/Lotion/Oil/ Oint (Artificial Tears Eye Ointment) 1 ramu PRN Q1HR PRN OU DRY EYE, 2nd choice Last administered on 08/01/19at 08:19; Start 07/13/19 at 17:30; Stop 09/21/19 at 14:39; Status DC Sodium Chloride 90 meq/Potassium Chloride 15 meq/ Potassium Phosphate 18 mmol/ Magnesium Sulfate 8 meq/Calcium Gluconate 15 meq/ Multivitamins 10 ml/Chromium/ Copper/Manganese/ Seleni/Zn 0.5 ml/ Total Parenteral Nutrition/Amino Acids/Dextrose/ Fat Emulsion Intravenous 1,400 ml @ 58.333 mls/ hr TPN CONT IV Last administered on 07/14/19at 22:00; Start 07/14/19 at 22:00; Stop 07/15/19 at 21:59; Status DC Albumin Human 500 ml @ 125 mls/hr 1X ONCE IV ; Start 07/14/19 at 14:15; Stop 07/14/19 at 18:14; Status DC Sodium Chloride 90 meq/Potassium Chloride 15 meq/ Potassium Phosphate 18 mmol/ Magnesium Sulfate 8 meq/Calcium Gluconate 15 meq/ Multivitamins 10 ml/Chromium/ Copper/Manganese/ Seleni/Zn 0.5 ml/ Insulin Human Regular 10 unit/ Total Parenteral Nutrition/Amino Acids/Dextrose/ Fat Emulsion Intravenous 1,400 ml @ 58.333 mls/ hr TPN CONT IV Last administered on 07/15/19at 21:43; Start 07/15/19 at 22:00; Stop 07/16/19 at 21:59; Status DC Lidocaine HCl (Buffered Lidocaine 1%) 3 ml STK-MED ONCE .ROUTE ; Start 07/13/19 at 10:00; Stop 07/15/19 at 13:57; Status DC Midazolam HCl 100 mg/Sodium Chloride 100 ml @ 7 mls/hr CONT PRN IV SEE PROTOCOL Last administered on 07/27/19at 15:35; Start 07/16/19 at 16:00; Stop 09/21/19 at 14:38; Status DC Sodium Chloride 90 meq/Potassium Chloride 15 meq/ Potassium Phosphate 18 mmol/ Magnesium Sulfate 8 meq/Calcium Gluconate 15 meq/ Multivitamins 10 ml/Chromium/ Copper/Manganese/ Seleni/Zn 0.5 ml/ Insulin Human Regular 15 unit/ Total Parenteral Nutrition/Amino Acids/Dextrose/ Fat Emulsion Intravenous 1,400 ml @ 58.333 mls/ hr TPN CONT IV Last administered on 07/16/19at 20:34; Start 07/16/19 at 22:00; Stop 07/17/19 at 21:59; Status DC Info (Icu Electrolyte Protocol) 1 ea CONT PRN PRN MC PER PROTOCOL; Start 07/17/19 at 13:15 Sodium Chloride 90 meq/Potassium Chloride 15 meq/ Potassium Phosphate 18 mmol/ Magnesium Sulfate 8 meq/Calcium Gluconate 15 meq/ Multivitamins 10 ml/Chromium/ Copper/Manganese/ Seleni/Zn 0.5 ml/ Insulin Human Regular 15 unit/ Total Parenteral Nutrition/Amino Acids/Dextrose/ Fat Emulsion Intravenous 1,400 ml @ 58.333 mls/ hr TPN CONT IV Last administered on 07/17/19at 22:05; Start 07/17/19 at 22:00; Stop 07/18/19 at 21:59; Status DC Potassium Chloride 15 meq/ Bicarbonate Dialysis Soln w/ out KCl 5,007.5 ml @ 1,000 mls/ hr Q5H1M IV Last administered on 07/20/19at 18:14; Start 07/17/19 at 20:00; Stop 07/21/19 at 13:08; Status DC Potassium Chloride 15 meq/ Bicarbonate Dialysis Soln w/ out KCl 5,007.5 ml @ 1,000 mls/ hr Q5H1M IV Last administered on 07/20/19at 18:14; Start 07/17/19 at 20:00; Stop 07/21/19 at 13:08; Status DC Potassium Chloride 15 meq/ Bicarbonate Dialysis Soln w/ out KCl 5,007.5 ml @ 1,000 mls/ hr Q5H1M IV Last administered on 07/20/19at 18:14; Start 07/17/19 at 20:00; Stop 07/21/19 at 13:08; Status DC Iohexol (Omnipaque 240 Mg/ml) 30 ml 1X ONCE PO Last administered on 07/18/19at 11:30; Start 07/18/19 at 11:30; Stop 07/18/19 at 11:33; Status DC Info (CONTRAST GIVEN -- Rx MONITORING) 1 each PRN DAILY PRN MC SEE COMMENTS; Start 07/18/19 at 11:45; Stop 07/20/19 at 11:44; Status DC Sodium Chloride 90 meq/Potassium Chloride 15 meq/ Potassium Phosphate 18 mmol/ Magnesium Sulfate 8 meq/Calcium Gluconate 15 meq/ Multivitamins 10 ml/Chromium/ Copper/Manganese/ Seleni/Zn 0.5 ml/ Insulin Human Regular 15 unit/ Total Parenteral Nutrition/Amino Acids/Dextrose/ Fat Emulsion Intravenous 1,400 ml @ 58.333 mls/ hr TPN CONT IV Last administered on 07/18/19at 21:47; Start 07/18/19 at 22:00; Stop 07/19/19 at 21:59; Status DC Sodium Chloride 90 meq/Potassium Chloride 15 meq/ Potassium Phosphate 18 mmol/ Magnesium Sulfate 8 meq/Calcium Gluconate 15 meq/ Multivitamins 10 ml/Chromium/ Copper/Manganese/ Seleni/Zn 0.5 ml/ Insulin Human Regular 20 unit/ Total Parenteral Nutrition/Amino Acids/Dextrose/ Fat Emulsion Intravenous 1,400 ml @ 58.333 mls/ hr TPN CONT IV Last administered on 07/19/19at 21:36; Start 07/19/19 at 22:00; Stop 07/20/19 at 21:59; Status DC Alteplase, Recombinant (Cathflo For Central Catheter Clearance) 1 mg 1X ONCE INT CAT Last administered on 07/19/19at 20:03; Start 07/19/19 at 19:30; Stop 07/19/19 at 19:46; Status DC Alteplase, Recombinant (Cathflo For Central Catheter Clearance) 1 mg 1X ONCE INT CAT Last administered on 07/19/19at 22:05; Start 07/19/19 at 22:00; Stop 07/19/19 at 22:01; Status DC Sodium Chloride 90 meq/Potassium Chloride 15 meq/ Potassium Phosphate 18 mmol/ Magnesium Sulfate 8 meq/Calcium Gluconate 15 meq/ Multivitamins 10 ml/Chromium/ Copper/Manganese/ Seleni/Zn 0.5 ml/ Insulin Human Regular 20 unit/ Total Parenteral Nutrition/Amino Acids/Dextrose/ Fat Emulsion Intravenous 1,400 ml @ 58.333 mls/ hr TPN CONT IV Last administered on 07/20/19at 21:30; Start 07/20/19 at 22:00; Stop 07/21/19 at 21:59; Status DC Dexmedetomidine HCl 400 mcg/ Sodium Chloride 100 ml @ 0 mls/hr CONT PRN IV ANXIETY / AGITATION Last administered on 09/17/19at 12:57; Start 07/21/19 at 08:15; Stop 09/17/19 at 18:31; Status DC Sodium Chloride 500 ml @ 500 mls/hr 1X PRN PRN IV ELEVATED BP, SEE COMMENTS; Start 07/21/19 at 08:15 Atropine Sulfate (ATROPINE 0.5mg SYRINGE) 0.5 mg PRN Q5MIN PRN IV SEE COMMENTS; Start 07/21/19 at 08:15 Furosemide (Lasix) 20 mg 1X ONCE IVP Last administered on 07/21/19at 08:19; Start 07/21/19 at 08:15; Stop 07/21/19 at 08:16; Status DC Lidocaine HCl (Buffered Lidocaine 1%) 3 ml STK-MED ONCE .ROUTE ; Start 07/21/19 at 08:39; Stop 07/21/19 at 08:39; Status DC Lidocaine HCl (Buffered Lidocaine 1%) 6 ml 1X ONCE INJ Last administered on 07/21/19at 09:05; Start 07/21/19 at 09:00; Stop 07/21/19 at 09:06; Status DC Sodium Chloride 90 meq/Potassium Chloride 15 meq/ Potassium Phosphate 18 mmol/ Magnesium Sulfate 8 meq/Calcium Gluconate 15 meq/ Multivitamins 10 ml/Chromium/ Copper/Manganese/ Seleni/Zn 0.5 ml/ Insulin Human Regular 20 unit/ Total Parenteral Nutrition/Amino Acids/Dextrose/ Fat Emulsion Intravenous 1,400 ml @ 58.333 mls/ hr TPN CONT IV Last administered on 07/21/19at 22:45; Start 07/21/19 at 22:00; Stop 07/22/19 at 21:59; Status DC Sodium Chloride 1,000 ml @ 1,000 mls/hr Q1H PRN IV hypotension; Start 07/22/19 at 07:30; Stop 07/22/19 at 13:29; Status DC Albumin Human 200 ml @ 200 mls/hr 1X PRN PRN IV Hypotension Last administered on 07/22/19at 09:36; Start 07/22/19 at 07:30; Stop 07/22/19 at 13:29; Status DC Sodium Chloride (Normal Saline Flush) 10 ml 1X PRN PRN IV AP catheter pack; S tart 07/22/19 at 07:30; Stop 07/22/19 at 21:29; Status DC Sodium Chloride (Normal Saline Flush) 10 ml 1X PRN PRN IV PRESSURE TESTER OPERATOR catheter pack; Start 07/22/19 at 07:30; Stop 07/23/19 at 07:29; Status DC Sodium Chloride 1,000 ml @ 400 mls/hr Q2H30M PRN IV PATENCY; Start 07/22/19 at 07:30; Stop 07/22/19 at 19:29; Status DC Info (PHARMACY MONITORING -- do not chart) 1 each PRN DAILY PRN MC SEE C OMMENTS; Start 07/22/19 at 07:30; Stop 07/22/19 at 13:02; Status DC Info (PHARMACY MONITORING -- do not chart) 1 each PRN DAILY PRN MC SEE COMMENTS; Start 07/22/19 at 07:30; Stop 07/24/19 at 12:45; Status DC Sodium Chloride 90 meq/Potassium Chloride 15 meq/ Potassium Phosphate 10 mmol/ Magnesium Sulfate 8 meq/Calcium Gluconate 15 meq/ Multivitamins 10 ml/Chromium/ Copper/Manganese/ Seleni/Zn 0.5 ml/ Insulin Human Regular 25 unit/ Total Parenteral Nutrition/Amino Acids/Dextrose/ Fat Emulsion Intravenous 1,400 ml @ 58.333 mls/ hr TPN CONT IV Last administered on 07/22/19at 22:19; Start 07/22/19 at 22:00; Stop 07/23/19 at 21:59; Status DC Heparin Sodium (Porcine) (Heparin Sodium) 5,000 unit Q12HR SQ Last administered on 08/14/19at 08:59; Start 07/22/19 at 21:00; Stop 08/14/19 at 10:05; Status DC Ondansetron HCl (Zofran) 4 mg PRN Q6HRS PRN IV NAUSEA/VOMITING; Start 07/25/19 at 07:00; Stop 07/26/19 at 06:59; Status DC Fentanyl Citrate (Fentanyl 2ml Vial) 25 mcg PRN Q5MIN PRN IV MILD PAIN 1-3; Start 07/25/19 at 07:00; Stop 07/26/19 at 06:59; Status DC Fentanyl Citrate (Fentanyl 2ml Vial) 50 mcg PRN Q5MIN PRN IV MODERATE TO SEVERE PAIN; Start 07/25/19 at 07:00; Stop 07/26/19 at 06:59; Status DC Ringer's Solution 1,000 ml @ 30 mls/hr Q24H IV ; Start 07/25/19 at 07:00; Stop 07/25/19 at 18:59; Status DC Lidocaine HCl (Xylocaine-Mpf 1% 2ml Vial) 2 ml PRN 1X PRN ID PRIOR TO IV START; Start 07/25/19 at 07:00; Stop 07/26/19 at 06:59; Status DC Prochlorperazine Edisylate (Compazine) 5 mg PACU PRN PRN IV NAUSEA, MRX1; Start 07/25/19 at 07:00; Stop 07/26/19 at 06:59; Status DC Sodium Chloride 1,000 ml @ 1,000 mls/hr Q1H PRN IV hypotension; Start 07/23/19 at 09:10; Stop 07/23/19 at 15:09; Status DC Albumin Human 200 ml @ 200 mls/hr 1X PRN PRN IV Hypotension Last administered on 07/23/19at 10:10; Start 07/23/19 at 09:15; Stop 07/23/19 at 15:14; Status DC Sodium Chloride 1,000 ml @ 400 mls/hr Q2H30M PRN IV PATENCY; Start 07/23/19 at 09:10; Stop 07/23/19 at 21:09; Status DC Info (PHARMACY MONITORING -- do not chart) 1 each PRN DAILY PRN MC SEE COMMENTS; Start 07/23/19 at 09:15; Stop 07/24/19 at 12:45; Status DC Info (PHARMACY MONITORING -- do not chart) 1 each PRN DAILY PRN MC SEE COMMENTS; Start 07/23/19 at 09:15; Stop 07/24/19 at 12:45; Status DC Sodium Chloride 90 meq/Potassium Chloride 15 meq/ Potassium Phosphate 10 mmol/ Magnesium Sulfate 8 meq/Calcium Gluconate 15 meq/ Multivitamins 10 ml/Chromium/ Copper/Manganese/ Seleni/Zn 0.5 ml/ Insulin Human Regular 25 unit/ Total Parenteral Nutrition/Amino Acids/Dextrose/ Fat Emulsion Intravenous 1,400 ml @ 58.333 mls/ hr TPN CONT IV Last administered on 07/23/19at 22:10; Start 07/23/19 at 22:00; Stop 07/24/19 at 21:59; Status DC Magnesium Sulfate 50 ml @ 25 mls/hr PRN DAILY PRN IV for Mag < 1.7 on am labs Last administered on 10/06/19at 10:57; Start 07/24/19 at 09:15 Sodium Chloride 90 meq/Potassium Chloride 15 meq/ Potassium Phosphate 10 mmol/ Magnesium Sulfate 8 meq/Calcium Gluconate 15 meq/ Multivitamins 10 ml/Chromium/ Copper/Manganese/ Seleni/Zn 0.5 ml/ Insulin Human Regular 25 unit/ Total Parenteral Nutrition/Amino Acids/Dextrose/ Fat Emulsion Intravenous 1,400 ml @ 58.333 mls/ hr TPN CONT IV Last administered on 07/24/19at 21:20; Start 07/24/19 at 22:00; Stop 07/25/19 at 21:59; Status DC Sodium Chloride 1,000 ml @ 1,000 mls/hr Q1H PRN IV hypotension; Start 07/24/19 at 12:23; Stop 07/24/19 at 18:22; Status DC Albumin Human 200 ml @ 200 mls/hr 1X ONCE IV Last administered on 07/24/19at 13:34; Start 07/24/19 at 12:30; Stop 07/24/19 at 13:29; Status DC Diphenhydramine HCl (Benadryl) 25 mg 1X PRN PRN IV ITCHING; Start 07/24/19 at 12:30; Stop 07/25/19 at 12:29; Status DC Diphenhydramine HCl (Benadryl) 25 mg 1X PRN PRN IV ITCHING; Start 07/24/19 at 12:30; Stop 07/25/19 at 12:29; Status DC Info (PHARMACY MONITORING -- do not chart) 1 each PRN DAILY PRN MC SEE COMMENTS; Start 07/24/19 at 12:30; Status Cancel Bupivacaine HCl/ Epinephrine Bitart (Sensorcain-Epi 0.5%-1:[id number] Mpf) 30 ml STK-MED ONCE .ROUTE Last administered on 07/25/19at 11:44; Start 07/25/19 at 11:00; Stop 07/25/19 at 11:01; Status DC Cellulose (Surgicel Fibrillar 1x2) 1 each STK-MED ONCE .ROUTE ; Start 07/25/19 at 11:00; Stop 07/25/19 at 11:01; Status DC Sodium Chloride 90 meq/Potassium Chloride 15 meq/ Potassium Phosphate 10 mmol/ Magnesium Sulfate 12 meq/Calcium Gluconate 15 meq/ Multivitamins 10 ml/Chromium/ Copper/Manganese/ Seleni/Zn 0.5 ml/ Insulin Human Regular 25 unit/ Total Parenteral Nutrition/Amino Acids/Dextrose/ Fat Emulsion Intravenous 1,400 ml @ 58.333 mls/ hr TPN CONT IV Last administered on 07/25/19at 22:24; Start 07/25/19 at 22:00; Stop 07/26/19 at 21:59; Status DC Propofol 20 ml @ As Directed STK-MED ONCE IV ; Start 07/25/19 at 11:07; Stop 07/25/19 at 11:07; Status DC Cellulose (Surgicel Hemostat 4x8) 1 each STK-MED ONCE .ROUTE Last administered on 07/25/19at 11:44; Start 07/25/19 at 11:55; Stop 07/25/19 at 11:56; Status DC Sevoflurane (Ultane) 60 ml STK-MED ONCE IH ; Start 07/25/19 at 12:46; Stop 07/25/19 at 12:46; Status DC Sodium Chloride 1,000 ml @ 1,000 mls/hr Q1H PRN IV hypotension; Start 07/25/19 at 13:51; Stop 07/25/19 at 19:50; Status DC Albumin Human 200 ml @ 200 mls/hr 1X PRN PRN IV Hypotension Last administered on 07/25/19at 14:51; Start 07/25/19 at 14:00; Stop 07/25/19 at 19:59; Status DC Diphenhydramine HCl (Benadryl) 25 mg 1X PRN PRN IV ITCHING; Start 07/25/19 at 14:00; Stop 07/26/19 at 13:59; Status DC Diphenhydramine HCl (Benadryl) 25 mg 1X PRN PRN IV ITCHING; Start 07/25/19 at 14:00; Stop 07/26/19 at 13:59; Status DC Sodium Chloride 1,000 ml @ 400 mls/hr Q2H30M PRN IV PATENCY; Start 07/25/19 at 13:51; Stop 07/26/19 at 01:50; Status DC Info (PHARMACY MONITORING -- do not chart) 1 each PRN DAILY PRN MC SEE COMMENTS; Start 07/25/19 at 14:00; Stop 07/28/19 at 08:16; Status DC Heparin Sodium (Porcine) (Hep Lock Adult) 500 unit STK-MED ONCE IVP ; Start 07/26/19 at 09:29; Stop 07/26/19 at 09:30; Status DC Sodium Chloride 1,000 ml @ 1,000 mls/hr Q1H PRN IV hypotension; Start 07/26/19 at 10:43; Stop 07/26/19 at 16:42; Status DC Sodium Chloride 1,000 ml @ 400 mls/hr Q2H30M PRN IV PATENCY; Start 07/26/19 at 10:43; Stop 07/26/19 at 22:42; Status DC Info (PHARMACY MONITORING -- do not chart) 1 each PRN DAILY PRN MC SEE COMMENTS; Start 07/26/19 at 10:45; Status UNV Info (PHARMACY MONITORING -- do not chart) 1 each PRN DAILY PRN MC SEE COMMENTS; Start 07/26/19 at 10:45; Status UNV Sodium Chloride 90 meq/Potassium Chloride 15 meq/ Magnesium Sulfate 12 meq/Calcium Gluconate 15 meq/ Multivitamins 10 ml/Chromium/ Copper/Manganese/ Seleni/Zn 0.5 ml/ Insulin Human Regular 25 unit/ Total Parenteral Nutrition/Amino Acids/Dextrose/ Fat Emulsion Intravenous 1,400 ml @ 58.333 mls/ hr TPN CONT IV Last administered on 07/26/19at 22:13; Start 07/26/19 at 22:00; Stop 07/27/19 at 21:59; Status DC Sodium Chloride 1,000 ml @ 1,000 mls/hr Q1H PRN IV hypotension; Start 07/27/19 at 07:50; Stop 07/27/19 at 13:49; Status DC Albumin Human 200 ml @ 200 mls/hr 1X ONCE IV ; Start 07/27/19 at 08:00; Stop 07/27/19 at 08:53; Status DC Diphenhydramine HCl (Benadryl) 25 mg 1X PRN PRN IV ITCHING; Start 07/27/19 at 08:00; Stop 07/28/19 at 07:59; Status DC Diphenhydramine HCl (Benadryl) 25 mg 1X PRN PRN IV ITCHING; Start 07/27/19 at 08:00; Stop 07/28/19 at 07:59; Status DC Info (PHARMACY MONITORING -- do not chart) 1 each PRN DAILY PRN MC SEE COMMENTS; Start 07/27/19 at 08:00; Stop 07/28/19 at 08:16; Status DC Albumin Human 50 ml @ 50 mls/hr 1X ONCE IV ; Start 07/27/19 at 08:53; Stop 07/27/19 at 08:56; Status DC Albumin Human 200 ml @ 50 mls/hr PRN 1X PRN IV HYPOTENSION Last administered on 08/02/19at 11:54; Start 07/27/19 at 09:00; Stop 09/08/19 at 11:14; Status DC Meropenem 500 mg/ Sodium Chloride 50 ml @ 100 mls/hr Q12H IV Last administered on 08/16/19at 10:45; Start 07/27/19 at 10:00; Stop 08/16/19 at 12:37; Status DC Sodium Chloride 90 meq/Magnesium Sulfate 12 meq/ Calcium Gluconate 15 meq/ Multivitamins 10 ml/Chromium/ Copper/Manganese/ Seleni/Zn 0.5 ml/ Insulin Human Regular 25 unit/ Total Parenteral Nutrition/Amino Acids/Dextrose/ Fat Emulsion Intravenous 1,400 ml @ 58.333 mls/ hr TPN CONT IV Last administered on 07/27/19at 21:41; Start 07/27/19 at 22:00; Stop 07/28/19 at 21:59; Status DC Sodium Chloride 1,000 ml @ 1,000 mls/hr Q1H PRN IV hypotension; Start 07/28/19 at 07:58; Stop 07/28/19 at 13:57; Status DC Albumin Human 200 ml @ 200 mls/hr 1X PRN PRN IV Hypotension Last administered on 07/28/19at 09:30; Start 07/28/19 at 08:00; Stop 07/28/19 at 13:59; Status DC Sodium Chloride 1,000 ml @ 400 mls/hr Q2H30M PRN IV PATENCY; Start 07/28/19 at 07:58; Stop 07/28/19 at 19:57; Status DC Info (PHARMACY MONITORING -- do not chart) 1 each PRN DAILY PRN MC SEE COMMENT S; Start 07/28/19 at 08:00; Status Cancel Info (PHARMACY MONITORING -- do not chart) 1 each PRN DAILY PRN MC SEE COMMENTS; Start 07/28/19 at 08:15; Status UNV Sodium Chloride 90 meq/Potassium Phosphate 5 mmol/ Magnesium Sulfate 12 meq/Calcium Gluconate 15 meq/ Multivitamins 10 ml/Chromium/ Copper/Manganese/ Seleni/Zn 0.5 ml/ Insulin Human Regular 30 unit/ Total Parenteral Nutritio n/Amino Acids/Dextrose/ Fat Emulsion Intravenous 1,400 ml @ 58.333 mls/ hr TPN CONT IV Last administered on 07/28/19at 22:08; Start 07/28/19 at 22:00; Stop 07/29/19 at 21:59; Status DC Linezolid/Dextrose 300 ml @ 300 mls/hr Q12HR IV Last administered on 08/08/19at 20:40; Start 07/29/19 at 11:00; Stop 08/09/19 at 08:10; Status DC Sodium Chloride 90 meq/Potassium Phosphate 15 mmol/ Magnesium Sulfate 12 meq/Calcium Gluconate 15 meq/ Multivitamins 10 ml/Chromium/ Copper/Manganese/ Seleni/Zn 0.5 ml/ Insulin Human Regular 30 unit/ Total Parenteral Nutrition/Amino Acids/Dextrose/ Fat Emulsion Intravenous 1,400 ml @ 58.333 mls/ hr TPN CONT IV Last administered on 07/29/19at 21:49; Start 07/29/19 at 22:00; Stop 07/30/19 at 21:59; Status DC Sodium Chloride 90 meq/Potassium Phosphate 15 mmol/ Magnesium Sulfate 12 meq/Calcium Gluconate 15 meq/ Multivitamins 10 ml/Chromium/ Copper/Manganese/ Seleni/Zn 0.5 ml/ Insulin Human Regular 40 unit/ Total Parenteral Nutrition/Amino Acids/Dextrose/ Fat Emulsion Intravenous 1,400 ml @ 58.333 mls/ hr TPN CONT IV Last administered on 07/30/19at 21:21; Start 07/30/19 at 22:00; Stop 07/31/19 at 21:59; Status DC Sodium Chloride 1,000 ml @ 1,000 mls/hr Q1H PRN IV hypotension; Start 07/30/19 at 13:26; Stop 07/30/19 at 19:25; Status DC Albumin Human 200 ml @ 200 mls/hr 1X PRN PRN IV Hypotension Last administered on 07/30/19at 15:00; Start 07/30/19 at 13:30; Stop 07/30/19 at 19:29; Status DC Sodium Chloride (Normal Saline Flush) 10 ml 1X PRN PRN IV AP catheter pack; Start 07/30/19 at 13:30; Stop 07/31/19 at 13:29; Status DC Sodium Chloride (Normal Saline Flush) 10 ml 1X PRN PRN IV PRESSURE TESTER OPERATOR catheter pack; Start 07/30/19 at 13:30; Stop 07/31/19 at 13:29; Status DC Sodium Chloride 1,000 ml @ 400 mls/hr Q2H30M PRN IV PATENCY; Start 07/30/19 at 13:26; Stop 07/31/19 at 01:25; Status DC Info (PHARMACY MONITORING -- do not chart) 1 each PRN DAILY PRN MC SEE COMMENT S; Start 07/30/19 at 13:30; Stop 07/30/19 at 13:33; Status DC Info (PHARMACY MONITORING -- do not chart) 1 each PRN DAILY PRN MC SEE COMMENTS; Start 07/30/19 at 13:30; Stop 07/30/19 at 13:34; Status DC Sodium Chloride 90 meq/Potassium Phosphate 19 mmol/ Magnesium Sulfate 12 meq/Calcium Gluconate 15 meq/ Multivitamins 10 ml/Chromium/ Copper/Manganese/ Seleni/Zn 0.5 ml/ Insulin Human Regular 40 unit/ Total Parenteral Nutrition/Amino Acids/Dextrose/ Fat Emulsion Intravenous 1,400 ml @ 58.333 mls/ hr TPN CONT IV Last administered on 07/31/19at 21:54; Start 07/31/19 at 22:00; Stop 08/01/19 at 21:59; Status DC Sodium Chloride 1,000 ml @ 1,000 mls/hr Q1H PRN IV hypotension; Start 08/01/19 at 09:35; Stop 08/01/19 at 15:34; Status DC Albumin Human 200 ml @ 200 mls/hr 1X PRN PRN IV Hypotension; Start 08/01/19 at 09:45; Stop 08/01/19 at 15:44; Status DC Diphenhydramine HCl (Benadryl) 25 mg 1X PRN PRN IV ITCHING; Start 08/01/19 at 09:45; Stop 08/02/19 at 09:44; Status DC Diphenhydramine HCl (Benadryl) 25 mg 1X PRN PRN IV ITCHING; Start 08/01/19 at 09:45; Stop 08/02/19 at 09:44; Status DC Sodium Chloride 1,000 ml @ 400 mls/hr Q2H30M PRN IV PATENCY; Start 08/01/19 at 09:35; Stop 08/01/19 at 21:34; Status DC Info (PHARMACY MONITORING -- do not chart) 1 each PRN DAILY PRN MC SEE COMMENTS; Start 08/01/19 at 09:45; Status Cancel Sodium Chloride 100 meq/Potassium Phosphate 19 mmol/ Magnesium Sulfate 12 meq/Calcium Gluconate 15 meq/ Multivitamins 10 ml/Chromium/ Copper/Manganese/ Seleni/Zn 0.5 ml/ Insulin Human Regular 40 unit/ Potassium Chloride 20 meq/ Total Parenteral Nutrition/Amino Acids/Dextrose/ Fat Emulsion Intravenous 1,400 ml @ 58.333 mls/ hr TPN CONT IV Last administered on 08/01/19at 22:02; Start 08/01/19 at 22:00; Stop 08/02/19 at 21:59; Status DC Furosemide (Lasix) 40 mg 1X ONCE IVP Last administered on 08/01/19at 14:39; Start 08/01/19 at 14:30; Stop 08/01/19 at 14:31; Status DC Metronidazole 100 ml @ 100 mls/hr Q8HRS IV Last administered on 08/09/19at 06:04; Start 08/02/19 at 10:00; Stop 08/09/19 at 08:10; Status DC Sodium Chloride 1,000 ml @ 1,000 mls/hr Q1H PRN IV hypotension; Start 08/02/19 at 08:00; Stop 08/02/19 at 13:59; Status DC Albumin Human 200 ml @ 200 mls/hr 1X PRN PRN IV Hypotension; Start 08/02/19 at 08:00; Stop 08/02/19 at 13:59; Status DC Sodium Chloride 1,000 ml @ 400 mls/hr Q2H30M PRN IV PATENCY; Start 08/02/19 at 08:00; Stop 08/02/19 at 19:59; Status DC Info (PHARMACY MONITORING -- do not chart) 1 each PRN DAILY PRN MC SEE COMMENTS; Start 08/02/19 at 11:30; Status UNV Info (PHARMACY MONITORING -- do not chart) 1 each PRN DAILY PRN MC SEE COMMENTS; Start 08/02/19 at 11:30; Stop 08/04/19 at 12:13; Status DC Sodium Chloride 100 meq/Potassium Phosphate 19 mmol/ Magnesium Sulfate 12 meq/Calcium Gluconate 15 meq/ Multivitamins 10 ml/Chromium/ Copper/Manganese/ Seleni/Zn 0.5 ml/ Insulin Human Regular 40 unit/ Potassium Chloride 20 meq/ Total Parenteral Nutrition/Amino Acids/Dextrose/ Fat Emulsion Intravenous 1,400 ml @ 58.333 mls/ hr TPN CONT IV Last administered on 08/02/19at 21:52; Start 08/02/19 at 22:00; Stop 08/03/19 at 21:59; Status DC Sodium Chloride (Normal Saline Flush) 10 ml QSHIFT PRN IV AFTER MEDS AND BLOOD DRAWS; Start 08/02/19 at 15:00; Stop 08/30/19 at 11:27; Status DC Sodium Chloride (Normal Saline Flush) 10 ml PRN Q5MIN PRN IV AFTER MEDS AND BLOOD DRAWS; Start 08/02/19 at 15:00 Sodium Chloride (Normal Saline Flush) 20 ml PRN Q5MIN PRN IV AFTER MEDS AND BLOOD DRAWS; Start 08/02/19 at 15:00 Sodium Chloride 100 meq/Potassium Phosphate 19 mmol/ Magnesium Sulfate 12 meq/Calcium Gluconate 15 meq/ Multivitamins 10 ml/Chromium/ Copper/Manganese/ Seleni/Zn 0.5 ml/ Insulin Human Regular 40 unit/ Potassium Chloride 20 meq/ Total Parenteral Nutrition/Amino Acids/Dextrose/ Fat Emulsion Intravenous 1,400 ml @ 58.333 mls/ hr TPN CONT IV Last administered on 08/03/19at 21:20; Start 08/03/19 at 22:00; Stop 08/04/19 at 21:59; Status DC Lidocaine HCl (Buffered Lidocaine 1%) 3 ml STK-MED ONCE .ROUTE ; Start 08/03/19 at 13:16; Stop 08/03/19 at 13:16; Status DC Lidocaine HCl (Buffered Lidocaine 1%) 6 ml 1X ONCE INJ Last administered on 08/03/19at 13:45; Start 08/03/19 at 13:30; Stop 08/03/19 at 13:31; Status DC Albumin Human 100 ml @ 100 mls/hr 1X ONCE IV Last administered on 08/03/19at 15:41; Start 08/03/19 at 15:00; Stop 08/03/19 at 15:59; Status DC Albumin Human 50 ml @ 50 mls/hr 1X ONCE IV Last administered on 08/03/19at 15:00; Start 08/03/19 at 15:00; Stop 08/03/19 at 15:59; Status DC Info (PHARMACY MONITORING -- do not chart) 1 each PRN DAILY PRN MC SEE PIPE TS; Start 08/04/19 at 11:30; Status Cancel Info (PHARMACY MONITORING -- do not chart) 1 each PRN DAILY PRN MC SEE COMMENTS; Start 08/04/19 at 11:30; Status UNV Sodium Chloride 100 meq/Potassium Phosphate 10 mmol/ Magnesium Sulfate 12 meq/Calcium Gluconate 15 meq/ Multivitamins 10 ml/Chromium/ Copper/Manganese/ Seleni/Zn 0.5 ml/ Insulin Human Regular 35 unit/ Potassium Chloride 20 meq/ Total Parenteral Nutrition/Amino Acids/Dextrose/ Fat Emulsion Intravenous 1,400 ml @ 58.333 mls/ hr TPN CONT IV Last administered on 08/04/19at 22:10; Start 08/04/19 at 22:00; Stop 08/05/19 at 21:59; Status DC Sodium Chloride 100 meq/Potassium Phosphate 5 mmol/ Magnesium Sulfate 12 meq/Calcium Gluconate 15 meq/ Multivitamins 10 ml/Chromium/ Copper/Manganese/ Seleni/Zn 0.5 ml/ Insulin Human Regular 35 unit/ Potassium Chloride 20 meq/ Total Parenteral Nutrition/Amino Acids/Dextrose/ Fat Emulsion Intravenous 1,400 ml @ 58.333 mls/ hr TPN CONT IV Last administered on 08/05/19at 22:59; Start 08/05/19 at 22:00; Stop 08/06/19 at 21:59; Status DC Sodium Chloride 1,000 ml @ 1,000 mls/hr Q1H PRN IV hypotension; Start 08/06/19 at 08:27; Stop 08/06/19 at 14:26; Status DC Albumin Human 200 ml @ 200 mls/hr 1X PRN PRN IV Hypotension Last administered on 08/06/19at 09:18; Start 08/06/19 at 08:30; Stop 08/06/19 at 14:29; Status DC Sodium Chloride 1,000 ml @ 400 mls/hr Q2H30M PRN IV PATENCY; Start 08/06/19 at 08:27; Stop 08/06/19 at 20:26; Status DC Info (PHARMACY MONITORING -- do not chart) 1 each PRN DAILY PRN MC SEE COMMENTS; Start 08/06/19 at 08:30; Status Cancel Info (PHARMACY MONITORING -- do not chart) 1 each PRN DAILY PRN MC SEE COMMENTS; Start 08/06/19 at 08:30; Stop 08/14/19 at 13:10; Status DC Sodium Chloride 100 meq/Potassium Chloride 40 meq/ Magnesium Sulfate 15 meq/C alcium Gluconate 15 meq/ Multivitamins 10 ml/Chromium/ Copper/Manganese/ Seleni/Zn 0.5 ml/ Insulin Human Regular 35 unit/ Total Parenteral Nutrition/Amino Acids/Dextrose/ Fat Emulsion Intravenous 1,400 ml @ 58.333 mls/ hr TPN CONT IV Last administered on 08/06/19at 22:00; Start 08/06/19 at 22:00; Stop 08/07/19 at 21:59; Status DC Potassium Chloride/Water 100 ml @ 100 mls/hr 1X ONCE IV Last administered on 08/06/19at 17:28; Start 08/06/19 at 14:45; Stop 08/06/19 at 15:44; Status DC Sodium Chloride 100 meq/Potassium Chloride 40 meq/ Magnesium Sulfate 15 meq/Calcium Gluconate 15 meq/ Multivitamins 10 ml/Chromium/ Copper/Manganese/ Seleni/Zn 0.5 ml/ Insulin Human Regular 35 unit/ Total Parenteral Nutrition/Amino Acids/Dextrose/ Fat Emulsion Intravenous 1,400 ml @ 58.333 mls/ hr TPN CONT IV Last administered on 08/07/19at 22:46; Start 08/07/19 at 22:00; Stop 08/08/19 at 21:59; Status DC Sodium Chloride 100 meq/Potassium Chloride 40 meq/ Magnesium Sulfate 20 meq/Calcium Gluconate 15 meq/ Multivitamins 10 ml/Chromium/ Copper/Manganese/ Seleni/Zn 0.5 ml/ Insulin Human Regular 35 unit/ Total Parenteral Nutrition/Amino Acids/Dextrose/ Fat Emulsion Intravenous 1,400 ml @ 58.333 mls/ hr TPN CONT IV Last administered on 08/08/19at 22:31; Start 08/08/19 at 22:00; Stop 08/09/19 at 21:59; Status DC Fentanyl Citrate (Fentanyl 2ml Vial) 50 mcg PRN Q2HR PRN IVP PAIN Last administered on 08/15/19at 13:32; Start 08/08/19 at 21:00; Stop 08/16/19 at 12:53; Status DC Fentanyl Citrate (Fentanyl 2ml Vial) 25 mcg PRN Q2HR PRN IVP PAIN; Start 08/08/19 at 21:00; Stop 08/16/19 at 12:54; Status DC Enoxaparin Sodium (Lovenox 100mg Syringe) 100 mg Q12HR SQ ; Start 08/09/19 at 21:00; Status UNV Amino Acids/ Glycerin/ Electrolytes 1,000 ml @ 75 mls/hr [id number] IV ; Start 08/08/19 at 21:15; Status UNV Sodium Chloride 1,000 ml @ 1,000 mls/hr Q1H PRN IV hypotension; Start 08/09/19 at 07:56; Stop 08/09/19 at 13:55; Status DC Albumin Human 200 ml @ 200 mls/hr 1X PRN PRN IV Hypotension Last administered on 08/09/19at 08:40; Start 08/09/19 at 08:00; Stop 08/09/19 at 13:59; Status DC Sodium Chloride 1,000 ml @ 400 mls/hr Q2H30M PRN IV PATENCY; Start 08/09/19 at 07:56; Stop 08/09/19 at 19:55; Status DC Info (PHARMACY MONITORING -- do not chart) 1 each PRN DAILY PRN MC SEE COMMENTS; Start 08/09/19 at 08:00; Status UNV Info (PHARMACY MONITORING -- do not chart) 1 each PRN DAILY PRN MC SEE COMMENTS; Start 08/09/19 at 08:00; Status UNV Daptomycin 430 mg/ Sodium Chloride 50 ml @ 100 mls/hr Q24H IV Last administered on 08/09/19at 12:35; Start 08/09/19 at 09:00; Stop 08/09/19 at 12:49; Status DC Sodium Chloride 100 meq/Potassium Chloride 40 meq/ Magnesium Sulfate 20 meq/Calcium Gluconate 15 meq/ Multivitamins 10 ml/Chromium/ Copper/Manganese/ Seleni/Zn 0.5 ml/ Insulin Human Regular 35 unit/ Total Parenteral Nutrition/Amino Acids/Dextrose/ Fat Emulsion Intravenous 1,400 ml @ 58.333 mls/ hr TPN CONT IV Last administered on 08/09/19at 21:26; Start 08/09/19 at 22:00; Stop 08/10/19 at 21:59; Status DC Daptomycin 430 mg/ Sodium Chloride 50 ml @ 100 mls/hr Q48H IV ; Start 08/11/19 at 09:00; Stop 08/10/19 at 11:55; Status DC Sodium Chloride 100 meq/Potassium Chloride 40 meq/ Magnesium Sulfate 20 meq/Calcium Gluconate 15 meq/ Multivitamins 10 ml/Chromium/ Copper/Manganese/ Seleni/Zn 0.5 ml/ Insulin Human Regular 35 unit/ Total Parenteral Nutrition/Amino Acids/Dextrose/ Fat Emulsion Intravenous 1,400 ml @ 58.333 mls/ hr TPN CONT IV Last administered on 08/10/19at 22:27; Start 08/10/19 at 22:00; Stop 08/11/19 at 21:59; Status DC Daptomycin 430 mg/ Sodium Chloride 50 ml @ 100 mls/hr Q24H IV Last administered on 08/12/19at 15:07; Start 08/10/19 at 13:00; Stop 08/13/19 at 13:15; Status DC Sodium Chloride 100 meq/Potassium Chloride 40 meq/ Magnesium Sulfate 20 meq/Calcium Gluconate 10 meq/ Multivitamins 10 ml/Chromium/ Copper/Manganese/ Seleni/Zn 0.5 ml/ Insulin Human Regular 35 unit/ Total Parenteral Nutrition/Amino Acids/Dextrose/ Fat Emulsion Intravenous 1,400 ml @ 58.333 mls/ hr TPN CONT IV Last administered on 08/12/19at 00:06; Start 08/11/19 at 22:00; Stop 08/12/19 at 21:59; Status DC Alteplase, Recombinant (Cathflo For Central Catheter Clearance) 1 mg 1X ONCE IN T CAT Last administered on 08/12/19at 11:44; Start 08/12/19 at 10:45; Stop 08/12/19 at 10:46; Status DC Ondansetron HCl (Zofran) 4 mg PRN Q6HRS PRN IV NAUSEA/VOMITING; Start 08/15/19 at 07:00; Stop 08/16/19 at 06:59; Status DC Fentanyl Citrate (Fentanyl 2ml Vial) 25 mcg PRN Q5MIN PRN IV MILD PAIN 1-3; Start 08/15/19 at 07:00; Stop 08/16/19 at 06:59; Status DC Fentanyl Citrate (Fentanyl 2ml Vial) 50 mcg PRN Q5MIN PRN IV MODERATE TO SEVERE PAIN Last administered on 08/15/19at 10:17; Start 08/15/19 at 07:00; Stop 08/16/19 at 06:59; Status DC Ringer's Solution 1,000 ml @ 30 mls/hr Q24H IV ; Start 08/15/19 at 07:00; Stop 08/15/19 at 18:59; Status DC Lidocaine HCl (Xylocaine-Mpf 1% 2ml Vial) 2 ml PRN 1X PRN ID PRIOR TO IV START; Start 08/15/19 at 07:00; Stop 08/16/19 at 06:59; Status DC Prochlorperazine Edisylate (Compazine) 5 mg PACU PRN PRN IV NAUSEA, MRX1; Start 08/15/19 at 07:00; Stop 08/16/19 at 06:59; Status DC Sodium Acetate 50 meq/Potassium Acetate 55 meq/ Magnesium Sulfate 20 meq/Calcium Gluconate 10 meq/ Multivitamins 10 ml/Chromium/ Copper/Manganese/ Seleni/Zn 0.5 ml/ Insulin Human Regular 35 unit/ Total Parenteral Nutrition/Amino Acids/Dextrose/ Fat Emulsion Intravenous 1,400 ml @ 58.333 mls/ hr TPN CONT IV ; Start 08/12/19 at 22:00; Stop 08/12/19 at 14:15; Status DC Sodium Acetate 50 meq/Potassium Acetate 55 meq/ Magnesium Sulfate 20 meq/Calcium Gluconate 10 meq/ Multivitamins 10 ml/Chromium/ Copper/Manganese/ Seleni/Zn 0.5 ml/ Insulin Human Regular 35 unit/ Total Parenteral Nutrition/Amino Acids/Dextrose/ Fat Emulsion Intravenous 1,800 ml @ 75 mls/hr TPN CONT IV Last administered on 08/12/19at 22:38; Start 08/12/19 at 22:00; Stop 08/13/19 at 21:59; Status DC Sodium Chloride 1,000 ml @ 1,000 mls/hr Q1H PRN IV hypotension; Start 08/12/19 at 15:31; Stop 08/12/19 at 21:30; Status DC Diphenhydramine HCl (Benadryl) 25 mg 1X PRN PRN IV ITCHING; Start 08/12/19 at 15:45; Stop 08/13/19 at 15:44; Status DC Diphenhydramine HCl (Benadryl) 25 mg 1X PRN PRN IV ITCHING; Start 08/12/19 at 15:45; Stop 08/13/19 at 15:44; Status DC Sodium Chloride 1,000 ml @ 400 mls/hr Q2H30M PRN IV PATENCY; Start 08/12/19 at 15:31; Stop 08/13/19 at 03:30; Status DC Info (PHARMACY MONITORING -- do not chart) 1 each PRN DAILY PRN MC SEE COMMENTS; Start 08/12/19 at 15:45; Stop 09/13/19 at 14:14; Status DC Sodium Acetate 50 meq/Potassium Acetate 55 meq/ Magnesium Sulfate 20 meq/Calcium Gluconate 10 meq/ Multivitamins 10 ml/Chromium/ Copper/Manganese/ Seleni/Zn 0.5 ml/ Insulin Human Regular 35 unit/ Total Parenteral Nutrition/Amino Acids/Dextrose/ Fat Emulsion Intravenous 1,800 ml @ 75 mls/hr TPN CONT IV Last administered on 08/13/19at 22:03; Start 08/13/19 at 22:00; Stop 08/14/19 at 21:59; Status DC Daptomycin 430 mg/ Sodium Chloride 50 ml @ 100 mls/hr Q24H IV Last administered on 08/18/19at 13:00; Start 08/13/19 at 13:00; Stop 08/18/19 at 20:58; Status DC Heparin Sodium (Porcine) 1000 unit/Sodium Chloride 1,001 ml @ 1,001 mls/hr 1X ONCE IRR ; Start 08/15/19 at 06:00; Stop 08/15/19 at 06:59; Status DC Potassium Acetate 55 meq/Magnesium Sulfate 20 meq/ Calcium Gluconate 10 meq/ Multivitamins 10 ml/Chromium/ Copper/Manganese/ Seleni/Zn 0.5 ml/ Insulin Human Regular 35 unit/ Total Parenteral Nutrition/Amino Acids/Dextrose/ Fat Emulsion Intravenous 1,920 ml @ 80 mls/hr TPN CONT IV Last administered on 08/14/19at 22:10; Start 08/14/19 at 22:00; Stop 08/15/19 at 21:59; Status DC Dexamethasone Sodium Phosphate (Decadron) 4 mg STK-MED ONCE .ROUTE ; Start 08/15/19 at 10:56; Stop 08/15/19 at 10:57; Status DC Ondansetron HCl (Zofran) 4 mg STK-MED ONCE .ROUTE ; Start 08/15/19 at 10:56; Stop 08/15/19 at 10:57; Status DC Rocuronium Farner (Zemuron) 50 mg STK-MED ONCE .ROUTE ; Start 08/15/19 at 10:56; Stop 08/15/19 at 10:57; Status DC Fentanyl Citrate (Fentanyl 2ml Vial) 100 mcg STK-MED ONCE .ROUTE ; Start 08/15/19 at 10:56; Stop 08/15/19 at 10:57; Status DC Bupivacaine HCl/ Epinephrine Bitart (Sensorcain-Epi 0.5%-1:980704 Mpf) 30 ml STK-MED ONCE .ROUTE Last administered on 08/15/19at 12:01; Start 08/15/19 at 10:58; Stop 08/15/19 at 10:58; Status DC Cellulose (Surgicel Hemostat 2x14) 1 each STK-MED ONCE .ROUTE ; Start 08/15/19 at 10:58; Stop 08/15/19 at 10:59; Status DC Iohexol (Omnipaque 300 Mg/ml) 50 ml STK-MED ONCE .ROUTE ; Start 08/15/19 at 10:58; Stop 08/15/19 at 10:59; Status DC Cellulose (Surgicel Hemostat 4x8) 1 each STK-MED ONCE .ROUTE ; Start 08/15/19 at 10:58; Stop 08/15/19 at 10:59; Status DC Bisacodyl (Dulcolax Supp) 10 mg STK-MED ONCE .ROUTE ; Start 08/15/19 at 10:59; Stop 08/15/19 at 10:59; Status DC Heparin Sodium (Porcine) 1000 unit/Sodium Chloride 1,001 ml @ 1,001 mls/hr 1X ONCE IRR ; Start 08/15/19 at 12:00; Stop 08/15/19 at 12:59; Status DC Propofol 20 ml @ As Directed STK-MED ONCE IV ; Start 08/15/19 at 11:05; Stop 08/15/19 at 11:05; Status DC Sevoflurane (Ultane) 90 ml STK-MED ONCE IH ; Start 08/15/19 at 11:05; Stop 08/15/19 at 11:05; Status DC Sevoflurane (Ultane) 60 ml STK-MED ONCE IH ; Start 08/15/19 at 12:26; Stop 08/15/19 at 12:27; Status DC Propofol 20 ml @ As Directed STK-MED ONCE IV ; Start 08/15/19 at 12:26; Stop 08/15/19 at 12:27; Status DC Phenylephrine HCl (PHENYLEPHRINE in 0.9% NACL PF) 1 mg STK-MED ONCE IV ; Start 08/15/19 at 12:34; Stop 08/15/19 at 12:34; Status DC Heparin Sodium (Porcine) (Heparin Sodium) 5,000 unit Q12HR SQ Last administered on 08/24/19at 20:57; Start 08/15/19 at 21:00; Stop 08/25/19 at 09:59; Status DC Sodium Chloride (Normal Saline Flush) 3 ml QSHIFT PRN IV AFTER MEDS AND BLOOD DRAWS; Start 08/15/19 at 13:45; Status Cancel Naloxone HCl (Narcan) 0.4 mg PRN Q2MIN PRN IV SEE INSTRUCTIONS Last administered on 09/24/19at 15:15; Start 08/15/19 at 13:45; Stop 10/19/19 at 16:00; Status DC Sodium Chloride 1,000 ml @ 25 mls/hr Q24H IV Last administered on 09/13/19at 13:37; Start 08/15/19 at 13:37; Stop 09/16/19 at 13:09; Status DC Naloxone HCl (Narcan) 0.4 mg PRN Q2MIN PRN IV SEE INSTRUCTIONS; Start 08/15/19 at 14:30; Status UNV Sodium Chloride 1,000 ml @ 25 mls/hr Q24H IV ; Start 08/15/19 at 14:30; Status UNV Hydromorphone HCl 30 ml @ 0 mls/hr CONT PRN PRN IV PER PROTOCOL Last administered on 08/20/19at 16:08; Start 08/15/19 at 14:30; Stop 08/22/19 at 08:55; Status DC Potassium Acetate 55 meq/Magnesium Sulfate 20 meq/ Calcium Gluconate 10 meq/ Multivitamins 10 ml/Chromium/ Copper/Manganese/ Seleni/Zn 0.5 ml/ Insulin Human Regular 35 unit/ Total Parenteral Nutrition/Amino Acids/Dextrose/ Fat Emulsion Intravenous 1,920 ml @ 80 mls/hr TPN CONT IV Last administered on 08/15/19at 22:01; Start 08/15/19 at 22:00; Stop 08/16/19 at 21:59; Status DC Bumetanide (Bumex) 2 mg [id number] IV Last administered on 08/19/19at 13:50; Start 08/16/19 at 14:00; Stop 08/20/19 at 14:10; Status DC Meropenem 1 gm/ Sodium Chloride 100 ml @ 200 mls/hr Q8HRS IV Last administered on 09/09/19at 05:53; Start 08/16/19 at 14:00; Stop 09/09/19 at 09:31; Status DC Potassium Acetate 55 meq/Magnesium Sulfate 20 meq/ Calcium Gluconate 10 meq/ Multivitamins 10 ml/Chromium/ Copper/Manganese/ Seleni/Zn 0.5 ml/ Insulin Human Regular 35 unit/ Total Parenteral Nutrition/Amino Acids/Dextrose/ Fat Emulsion Intravenous 1,920 ml @ 80 mls/hr TPN CONT IV Last administered on 08/16/19at 22:02; Start 08/16/19 at 22:00; Stop 08/17/19 at 21:59; Status DC Hydromorphone HCl (Dilaudid Standard CHIEF LIBRARIAN BRANCH) 12 mg STK-MED ONCE IV ; Start 08/15/19 at 14:35; Stop 08/16/19 at 13:53; Status DC Artificial Tears (Artificial Tears) 1 drop PRN Q15MIN PRN OU DRY EYE Last administered on 10/11/19at 21:17; Start 08/17/19 at 05:30 Hydromorphone HCl (Dilaudid Standard [employer]RARIAN BRANCH) 12 mg STK-MED ONCE IV ; Start 08/16/19 at 12:05; Stop 08/17/19 at 09:15; Status DC Potassium Acetate 65 meq/Magnesium Sulfate 20 meq/ Calcium Gluconate 10 meq/ Multivitamins 10 ml/Chromium/ Copper/Manganese/ Seleni/Zn 0.5 ml/ Insulin Human Regular 30 unit/ Total Parenteral Nutrition/Amino Acids/Dextrose/ Fat Emulsion Intravenous 1,920 ml @ 80 mls/hr TPN CONT IV Last administered on 08/17/19at 22:22; Start 08/17/19 at 22:00; Stop 08/18/19 at 21:59; Status DC Cyclobenzaprine HCl (Flexeril) 10 mg PRN Q6HRS PRN PO MUSCLE SPASMS; Start 08/18/19 at 10:45 Potassium Acetate 55 meq/Magnesium Sulfate 20 meq/ Calcium Gluconate 10 meq/ Multivitamins 10 ml/Chromium/ Copper/Manganese/ Seleni/Zn 0.5 ml/ Insulin Human Regular 30 unit/ Total Parenteral Nutrition/Amino Acids/Dextrose/ Fat Emulsion Intravenous 1,920 ml @ 80 mls/hr TPN CONT IV Last administered on 08/19/19at 01:00; Start 08/18/19 at 22:00; Stop 08/19/19 at 21:59; Status DC Magnesium Sulfate 50 ml @ 25 mls/hr 1X ONCE IV Last administered on 08/18/19at 17:18; Start 08/18/19 at 12:45; Stop 08/18/19 at 14:44; Status DC Potassium Chloride/Water 100 ml @ 100 mls/hr 1X ONCE IV Last administered on 08/19/19at 11:27; Start 08/19/19 at 12:00; Stop 08/19/19 at 12:59; Status DC Hydromorphone HCl (Dilaudid Standard [employer]ARIAN BRANCH) 12 mg STK-MED ONCE IV ; Start 08/17/19 at 10:50; Stop 08/19/19 at 11:02; Status DC Hydromorphone HCl (Dilaudid Standard [employer]RARIAN BRANCH) 12 mg STK-MED ONCE IV ; Start 08/18/19 at 13:47; Stop 08/19/19 at 11:03; Status DC Potassium Acetate 30 meq/Magnesium Sulfate 20 meq/ Calcium Gluconate 10 meq/ Multivitamins 10 ml/Chromium/ Copper/Manganese/ Seleni/Zn 0.5 ml/ Insulin Human Regular 30 unit/ Potassium Chloride 30 meq/ Total Parenteral Nutrition/Amino Acids/Dextrose/ Fat Emulsion Intravenous 1,920 ml @ 80 mls/hr TPN CONT IV Last administered on 08/19/19at 22:34; Start 08/19/19 at 22:00; Stop 08/20/19 at 21:59; Status DC Potassium Chloride/Water 100 ml @ 100 mls/hr Q1H IV Last administered on 08/20/19at 13:05; Start 08/20/19 at 07:00; Stop 08/20/19 at 10:59; Status DC Magnesium Sulfate 50 ml @ 25 mls/hr 1X ONCE IV Last administered on 08/20/19at 10:34; Start 08/20/19 at 10:30; Stop 08/20/19 at 12:29; Status DC Potassium Chloride 75 meq/ Magnesium Sulfate 20 meq/Calcium Gluconate 10 meq/ Multivitamins 10 ml/Chromium/ Copper/Manganese/ Seleni/Zn 0.5 ml/ Insulin Human Regular 30 unit/ Total Parenteral Nutrition/Amino Acids/Dextrose/ Fat Emulsion Intravenous 1,920 ml @ 80 mls/hr TPN CONT IV Last administered on 08/20/19at 21:51; Start 08/20/19 at 22:00; Stop 08/21/19 at 22:00; Status DC Potassium Chloride 75 meq/ Magnesium Sulfate 20 meq/Calcium Gluconate 10 meq/ Multivitamins 10 ml/Chromium/ Copper/Manganese/ Seleni/Zn 0.5 ml/ Insulin Human Regular 25 unit/ Total Parenteral Nutrition/Amino Acids/Dextrose/ Fat Emulsion Intravenous 1,920 ml @ 80 mls/hr TPN CONT IV Last administered on 08/21/19at 22:04; Start 08/21/19 at 22:00; Stop 08/22/19 at 21:59; Status DC Hydromorphone HCl (Dilaudid) 0.4 mg PRN Q4HRS PRN IVP PAIN Last administered on 08/22/19at 10:57; Start 08/22/19 at 09:00; Stop 08/22/19 at 18:59; Status DC Micafungin Sodium 100 mg/Dextrose 100 ml @ 100 mls/hr Q24H IV Last administered on 09/13/19at 12:17; Start 08/22/19 at 11:00; Stop 09/14/19 at 09:59; Status DC Daptomycin 485 mg/ Sodium Chloride 50 ml @ 100 mls/hr Q24H IV Last administered on 08/29/19at 13:10; Start 08/22/19 at 11:00; Stop 08/30/19 at 07:44; Status DC Potassium Chloride 75 meq/ Magnesium Sulfate 15 meq/Calcium Gluconate 8 meq/ Multivitamins 10 ml/Chromium/ Copper/Manganese/ Seleni/Zn 0.5 ml/ Insulin Human Regular 25 unit/ Total Parenteral Nutrition/Amino Acids/Dextrose/ Fat Emulsion Intravenous 1,920 ml @ 80 mls/hr TPN CONT IV Last administered on 08/22/19at 23:08; Start 08/22/19 at 22:00; Stop 08/23/19 at 21:59; Status DC Haloperidol Lactate (Haldol Inj) 3 mg 1X ONCE IVP Last administered on 08/22/19at 14:37; Start 08/22/19 at 14:30; Stop 08/22/19 at 14:31; Status DC Hydromorphone HCl (Dilaudid) 1 mg PRN Q4HRS PRN IVP PAIN Last administered on 09/05/19at 06:25; Start 08/22/19 at 19:00; Stop 09/05/19 at 17:10; Status DC Potassium Chloride 75 meq/ Magnesium Sulfate 15 meq/Calcium Gluconate 8 meq/ Multivitamins 10 ml/Chromium/ Copper/Manganese/ Seleni/Zn 0.5 ml/ Insulin Human Regular 20 unit/ Total Parenteral Nutrition/Amino Acids/Dextrose/ Fat Emulsion Intravenous 1,920 ml @ 80 mls/hr TPN CONT IV Last administered on 08/23/19at 22:10; Start 08/23/19 at 22:00; Stop 08/24/19 at 21:59; Status DC Lidocaine HCl (Buffered Lidocaine 1%) 3 ml STK-MED ONCE .ROUTE ; Start 08/24/19 at 11:31; Stop 08/24/19 at 11:31; Status DC Lidocaine HCl (Buffered Lidocaine 1%) 3 ml STK-MED ONCE .ROUTE ; Start 08/24/19 at 12:28; Stop 08/24/19 at 12:29; Status DC Lidocaine HCl (Buffered Lidocaine 1%) 6 ml 1X ONCE INJ Last administered on at 12:53; Start 08/24/19 at 12:45; Stop 08/24/19 at 12:46; Status DC Potassium Chloride 75 meq/ Magnesium Sulfate 15 meq/Calcium Gluconate 8 meq/ Multivitamins 10 ml/Chromium/ Copper/Manganese/ Seleni/Zn 0.5 ml/ Insulin Human Regular 20 unit/ Total Parenteral Nutrition/Amino Acids/Dextrose/ Fat Emulsion Intravenous 1,920 ml @ 80 mls/hr TPN CONT IV Last administered on 08/24/19at 22:00; Start 08/24/19 at 22:00; Stop 08/25/19 at 21:59; Status DC Potassium Chloride 75 meq/ Magnesium Sulfate 15 meq/Calcium Gluconate 8 meq/ Multivitamins 10 ml/Chromium/ Copper/Manganese/ Seleni/Zn 0.5 ml/ Insulin Human Regular 15 unit/ Total Parenteral Nutrition/Amino Acids/Dextrose/ Fat Emulsion Intravenous 1,920 ml @ 80 mls/hr TPN CONT IV Last administered on 08/25/19at 22 :28; Start 08/25/19 at 22:00; Stop 08/26/19 at 21:59; Status DC Vecuronium Farner (Norcuron Bolus) 6 mg PRN Q6HRS PRN IV VENT ASYNCHRONY; Start 08/25/19 at 19:15; Stop 08/25/19 at 19:35; Status DC Bumetanide (Bumex) 2 mg 1X ONCE IV Last administered on 08/25/19at 22:09; Start 08/25/19 at 19:45; Stop 08/25/19 at 19:46; Status DC Lidocaine HCl (Buffered Lidocaine 1%) 3 ml STK-MED ONCE .ROUTE ; Start 08/26/19 at 07:59; Stop 08/26/19 at 07:59; Status DC Midazolam HCl (Versed) 5 mg STK-MED ONCE .ROUTE ; Start 08/26/19 at 08:36; Stop 08/26/19 at 08:36; Status DC Fentanyl Citrate (Fentanyl 5ml Vial) 250 mcg STK-MED ONCE .ROUTE ; Start 08/26/19 at 08:36; Stop 08/26/19 at 08:37; Status DC Lidocaine HCl (Buffered Lidocaine 1%) 3 ml 1X ONCE IJ Last administered on 08/26/19at 09:30; Start 08/26/19 at 09:15; Stop 08/26/19 at 09:16; Status DC Midazolam HCl (Versed) 5 mg 1X ONCE IV Last administered on 08/26/19at 09:30; Start 08/26/19 at 09:15; Stop 08/26/19 at 09:16; Status DC Fentanyl Citrate (Fentanyl 5ml Vial) 250 mcg 1X ONCE IV Last administered on 08/26/19at 09:30; Start 08/26/19 at 09:15; Stop 08/26/19 at 09:16; Status DC Bumetanide (Bumex) 2 mg DAILY IV Last administered on 09/05/19at 08:07; Start 08/26/19 at 10:00; Stop 09/05/19 at 17:15; Status DC Potassium Chloride 75 meq/ Magnesium Sulfate 15 meq/ Multivitamins 10 ml/Chromium/ Copper/Manganese/ Seleni/Zn 0.5 ml/ Insulin Human Regular 15 unit/ Total Parenteral Nutrition/Amino Acids/Dextrose/ Fat Emulsion Intravenous 1,920 ml @ 80 mls/hr TPN CONT IV Last administered on 08/26/19at 21:59; Start 08/26/19 at 22:00; Stop 08/27/19 at 21:59; Status DC Metoclopramide HCl (Reglan Vial) 10 mg PRN Q3HRS PRN IVP NAUSEA/VOMITING-3rd choice Last administered on 09/01/19at 04:25; Start 08/27/19 at 16:45 Potassium Chloride 75 meq/ Magnesium Sulfate 15 meq/ Multivitamins 10 ml/Chromium/ Copper/Manganese/ Seleni/Zn 0.5 ml/ Insulin Human Regular 15 unit/ Total Parenteral Nutrition/Amino Acids/Dextrose/ Fat Emulsion Intravenous 1,920 ml @ 80 mls/hr TPN CONT IV Last administered on 08/27/19at 22:41; Start 08/27/19 at 22:00; Stop 08/28/19 at 21:59; Status DC Magnesium Sulfate 50 ml @ 25 mls/hr 1X ONCE IV Last administered on 08/28/19at 10:44; Start 08/28/19 at 09:00; Stop 08/28/19 at 10:59; Status DC Potassium Chloride/Water 100 ml @ 100 mls/hr 1X ONCE IV Last administered on 08/28/19at 09:37; Start 08/28/19 at 09:00; Stop 08/28/19 at 09:59; Status DC Duloxetine HCl (Cymbalta) 30 mg DAILY PO Last administered on 08/29/19at 09:48; Start 08/28/19 at 14:00; Stop 08/31/19 at 10:25; Status DC Potassium Chloride 80 meq/ Magnesium Sulfate 20 meq/ Multivitamins 10 ml/Chromium/ Copper/Manganese/ Seleni/Zn 0.5 ml/ Insulin Human Regular 15 unit/ Total Parenteral Nutrition/Amino Acids/Dextrose/ Fat Emulsion Intravenous 1,920 ml @ 80 mls/hr TPN CONT IV Last administered on 08/28/19at 21:42; Start 08/28/19 at 22:00; Stop 08/29/19 at 21:59; Status DC Potassium Chloride 80 meq/ Magnesium Sulfate 20 meq/ Multivitamins 10 ml/Chromium/ Copper/Manganese/ Seleni/Zn 0.5 ml/ Insulin Human Regular 15 unit/ Total Parenteral Nutrition/Amino Acids/Dextrose/ Fat Emulsion Intravenous 1,920 ml @ 80 mls/hr TPN CONT IV Last administered on 08/29/19at 22:20; Start 08/29/19 at 22:00; Stop 08/30/19 at 21:59; Status DC Lidocaine HCl (Buffered Lidocaine 1%) 3 ml STK-MED ONCE .ROUTE ; Start 08/30/19 at 09:54; Stop 08/30/19 at 09:55; Status DC Hydromorphone HCl (Dilaudid Standard [employer] BRANCH) 12 mg STK-MED ONCE IV ; Start 08/19/19 at 15:50; Stop 08/30/19 at 11:24; Status DC Potassium Chloride 80 meq/ Magnesium Sulfate 20 meq/ Multivitamins 10 ml/Chromium/ Copper/Manganese/ Seleni/Zn 0.5 ml/ Insulin Human Regular 15 unit/ Total Parenteral Nutrition/Amino Acids/Dextrose/ Fat Emulsion Intravenous 1,920 ml @ 80 mls/hr TPN CONT IV Last administered on 08/30/19at 21:40; Start 08/30/19 at 22:00; Stop 08/31/19 at 21:59; Status DC Lidocaine HCl (Buffered Lidocaine 1%) 6 ml 1X ONCE INJ Last administered on 08/30/19at 14:15; Start 08/30/19 at 14:15; Stop 08/30/19 at 14:16; Status DC Potassium Chloride 80 meq/ Magnesium Sulfate 20 meq/ Multivitamins 10 ml/Chromium/ Copper/Manganese/ Seleni/Zn 1 ml/ Insulin Human Regular 15 unit/ Total Parenteral Nutrition/Amino Acids/Dextrose/ Fat Emulsion Intravenous 1,920 ml @ 80 mls/hr TPN CONT IV Last administered on 08/31/19at 22:04; Start 08/31/19 at 22:00; Stop 09/01/19 at 21:59; Status DC Potassium Chloride/Water 100 ml @ 100 mls/hr 1X ONCE IV Last administered on 09/01/19at 11:34; Start 09/01/19 at 11:00; Stop 09/01/19 at 11:59; Status DC Potassium Chloride 90 meq/ Magnesium Sulfate 20 meq/ Multivitamins 10 ml/Chromium/ Copper/Manganese/ Seleni/Zn 1 ml/ Insulin Human Regular 15 unit/ Total Parenteral Nutrition/Amino Acids/Dextrose/ Fat Emulsion Intravenous 1,920 ml @ 80 mls/hr TPN CONT IV Last administered on 09/01/19at 22:57; Start 09/01/19 at 22:00; Stop 09/02/19 at 21:59; Status DC Potassium Chloride 90 meq/ Magnesium Sulfate 20 meq/ Multivitamins 10 ml/Chromium/ Copper/Manganese/ Seleni/Zn 1 ml/ Insulin Human Regular 15 unit/ Total Parenteral Nutrition/Amino Acids/Dextrose/ Fat Emulsion Intravenous 1,920 ml @ 80 mls/hr TPN CONT IV Last administered on 09/02/19at 22:48; Start 09/02/19 at 22:00; Stop 09/03/19 at 21:59; Status DC Potassium Chloride 90 meq/ Magnesium Sulfate 20 meq/ Multivitamins 10 ml/Chromium/ Copper/Manganese/ Seleni/Zn 1 ml/ Insulin Human Regular 15 unit/ Total Parenteral Nutrition/Amino Acids/Dextrose/ Fat Emulsion Intravenous 1,890 ml @ 78.75 mls/ hr TPN CONT IV Last administered on 09/03/19at 22:15; Start 09/03/19 at 22:00; Stop 09/04/19 at 21:59; Status DC Linezolid/Dextrose 300 ml @ 300 mls/hr Q12HR IV Last administered on 09/06/19at 21:08; Start 09/04/19 at 09:00; Stop 09/07/19 at 08:11; Status DC Daptomycin 450 mg/ Sodium Chloride 50 ml @ 100 mls/hr Q24H IV Last administered on 09/07/19at 09:25; Start 09/04/19 at 09:00; Stop 09/08/19 at 08:30; Status DC Potassium Chloride 90 meq/ Magnesium Sulfate 20 meq/ Multivitamins 10 ml/Chromium/ Copper/Manganese/ Seleni/Zn 1 ml/ Insulin Human Regular 15 unit/ Total Parenteral Nutrition/Amino Acids/Dextrose/ Fat Emulsion Intravenous 1,890 ml @ 78.75 mls/ hr TPN CONT IV Last administered on 09/04/19at 21:34; Start 09/04/19 at 22:00; Stop 09/05/19 at 21:59; Status DC Lorazepam (Ativan Inj) 2 mg STK-MED ONCE .ROUTE ; Start 09/04/19 at 14:58; Stop 09/04/19 at 14:58; Status DC Metoprolol Tartrate (Lopressor Vial) 5 mg 1X ONCE IVP Last administered on 09/04/19at 15:31; Start 09/04/19 at 15:15; Stop 09/04/19 at 15:16; Status DC Lorazepam (Ativan Inj) 2 mg 1X ONCE IVP Last administered on 09/04/19at 15:30; Start 09/04/19 at 15:15; Stop 09/04/19 at 15:16; Status DC Enoxaparin Sodium (Lovenox 40mg Syringe) 40 mg Q24H SQ Last administered on 09/23/19at 17:44; Start 09/04/19 at 17:00; Stop 09/25/19 at 06:50; Status DC Lorazepam (Ativan Inj) 1 mg PRN Q4HRS PRN IVP ANXIETY / AGITATION MILD-MOD Last administered on 09/18/19at 15:55; Start 09/04/19 at 19:15; Stop 09/20/19 at 11:45; Status DC Lorazepam (Ativan Inj) 2 mg PRN Q4HRS PRN IVP ANXIETY / AGITATION SEVERE Last administered on 09/19/19at 07:55; Start 09/04/19 at 19:15; Stop 09/20/19 at 11:45; Status DC Fentanyl Citrate (Fentanyl 2ml Vial) 50 mcg PRN Q4HRS PRN IVP SEVERE PAIN Last administered on 10/01/19at 05:15; Start 09/05/19 at 13:15; Stop 10/02/19 at 09:29; Status DC Fentanyl Citrate (Fentanyl 2ml Vial) 25 mcg PRN Q4HRS PRN IVP MODERATE PAIN Last administered on 10/01/19at 00:27; Start 09/05/19 at 13:15; Stop 10/02/19 at 09:30; Status DC Potassium Chloride 90 meq/ Magnesium Sulfate 20 meq/ Multivitamins 10 ml/Chromium/ Copper/Manganese/ Seleni/Zn 1 ml/ Insulin Human Regular 15 unit/ Total Parenteral Nutrition/Amino Acids/Dextrose/ Fat Emulsion Intravenous 1,890 ml @ 78.75 mls/ hr TPN CONT IV Last administered on 09/05/19at 22:18; Start 09/05/19 at 22:00; Stop 09/06/19 at 21:59; Status DC Furosemide (Lasix) 40 mg 1X ONCE IVP Last administered on 09/05/19at 21:51; Start 09/05/19 at 21:45; Stop 09/05/19 at 21:48; Status DC Albumin Human 100 ml @ 100 mls/hr 1X PRN PRN IV SEE COMMENTS; Start 09/06/19 at 01:30 Furosemide (Lasix) 40 mg [id number] IVP Last administered on 09/21/19at 08:04; Start 09/06/19 at 14:00; Stop 09/21/19 at 13:07; Status DC Potassium Chloride 90 meq/ Magnesium Sulfate 20 meq/ Multivitamins 10 ml/Chromium/ Copper/Manganese/ Seleni/Zn 1 ml/ Insulin Human Regular 15 unit/ Total Parenteral Nutrition/Amino Acids/Dextrose/ Fat Emulsion Intravenous 1,800 ml @ 75 mls/hr TPN CONT IV Last administered on 09/06/19at 22:31; Start 09/06/19 at 22:00; Stop 09/07/19 at 21:59; Status DC Potassium Chloride 90 meq/ Magnesium Sulfate 20 meq/ Multivitamins 10 ml/Chromium/ Copper/Manganese/ Seleni/Zn 1 ml/ Insulin Human Regular 15 unit/ Total Parenteral Nutrition/Amino Acids/Dextrose/ Fat Emulsion Intravenous 1,800 ml @ 75 mls/hr TPN CONT IV Last administered on 09/07/19at 22:28; Start 09/07/19 at 22:00; Stop 09/08/19 at 21:59; Status DC Potassium Chloride 110 meq/ Magnesium Sulfate 20 meq/ Multivitamins 10 ml/Chromium/ Copper/Manganese/ Seleni/Zn 1 ml/ Insulin Human Regular 15 unit/ Total Parenteral Nutrition/Amino Acids/Dextrose/ Fat Emulsion Intravenous 1,800 ml @ 75 mls/hr TPN CONT IV Last administered on 09/08/19at 22:01; Start 09/08/19 at 22:00; Stop 09/09/19 at 21:59; Status DC Saliva Substitute (Biotene Moisturizing Mouth) 2 spray PRN Q15MIN PRN PO DRY MOUTH; Start 09/08/19 at 11:00 Potassium Chloride 110 meq/ Magnesium Sulfate 20 meq/ Multivitamins 10 ml/Chromium/ Copper/Manganese/ Seleni/Zn 1 ml/ Insulin Human Regular 15 unit/ Total Parenteral Nutrition/Amino Acids/Dextrose/ Fat Emulsion Intravenous 1,800 ml @ 75 mls/hr TPN CONT IV Last administered on 09/09/19at 22:21; Start 09/09/19 at 22:00; Stop 09/10/19 at 21:59; Status DC Potassium Chloride 110 meq/ Magnesium Sulfate 20 meq/ Multivitamins 10 ml/Chromium/ Copper/Manganese/ Seleni/Zn 1 ml/ Insulin Human Regular 15 unit/ Total Parenteral Nutrition/Amino Acids/Dextrose/ Fat Emulsion Intravenous 1,800 ml @ 75 mls/hr TPN CONT IV Last administered on 09/10/19at 22:04; Start 09/10/19 at 22:00; Stop 09/11/19 at 21:59; Status DC Potassium Chloride 110 meq/ Magnesium Sulfate 20 meq/ Multivitamins 10 ml/Chromium/ Copper/Manganese/ Seleni/Zn 1 ml/ Insulin Human Regular 15 unit/ Total Parenteral Nutrition/Amino Acids/Dextrose/ Fat Emulsion Intravenous 1,800 ml @ 75 mls/hr TPN CONT IV Last administered on 09/11/19at 22:48; Start 09/11/19 at 22:00; Stop 09/12/19 at 21:59; Status DC Potassium Chloride 70 meq/ Magnesium Sulfate 20 meq/ Multivitamins 10 ml/Chromium/ Copper/Manganese/ Seleni/Zn 1 ml/ Insulin Human Regular 15 unit/ Total Parenteral Nutrition/Amino Acids/Dextrose/ Fat Emulsion Intravenous 1,800 ml @ 75 mls/hr TPN CONT IV Last administered on 09/12/19at 21:39; Start 09/12/19 at 22:00; Stop 09/13/19 at 21:59; Status DC Meropenem 500 mg/ Sodium Chloride 50 ml @ 100 mls/hr Q6HRS IV Last administered on 09/14/19at 06:02; Start 09/12/19 at 18:00; Stop 09/14/19 at 09:5 9; Status DC Barium Sulfate (Varibar Thin Liquid Apple) 148 gm 1X ONCE PO ; Start 09/13/19 at 11:45; Stop 09/13/19 at 11:49; Status DC Potassium Chloride 70 meq/ Magnesium Sulfate 20 meq/ Multivitamins 10 ml/Chromium/ Copper/Manganese/ Seleni/Zn 1 ml/ Insulin Human Regular 15 unit/ Total Parenteral Nutrition/Amino Acids/Dextrose/ Fat Emulsion Intravenous 1,800 ml @ 75 mls/hr TPN CONT IV Last administered on 09/13/19at 22:27; Start 09/13/19 at 22:00; Stop 09/14/19 at 21:59; Status DC Piperacillin Sod/ Tazobactam Sod 3.375 gm/Sodium Chloride 50 ml @ 100 mls/hr Q6HRS IV Last administered on 09/22/19at 06:10; Start 09/14/19 at 12:00; Stop 09/22/19 at 07:26; Status DC Potassium Chloride 70 meq/ Magnesium Sulfate 20 meq/ Multivitamins 10 ml/Chromium/ Copper/Manganese/ Seleni/Zn 1 ml/ Insulin Human Regular 15 unit/ Total Parenteral Nutrition/Amino Acids/Dextrose/ Fat Emulsion Intravenous 1,800 ml @ 75 mls/hr TPN CONT IV Last administered on 09/14/19at 22:03; Start 09/14/19 at 22:00; Stop 09/15/19 at 21:59; Status DC Potassium Chloride 70 meq/ Magnesium Sulfate 20 meq/ Multivitamins 10 ml/Chromium/ Copper/Manganese/ Seleni/Zn 1 ml/ Insulin Human Regular 15 unit/ Total Parenteral Nutrition/Amino Acids/Dextrose/ Fat Emulsion Intravenous 1,800 ml @ 75 mls/hr TPN CONT IV Last administered on 09/15/19at 22:33; Start 09/15/19 at 22:00; Stop 09/16/19 at 21:59; Status DC Potassium Chloride 70 meq/ Magnesium Sulfate 20 meq/ Multivitamins 10 ml/Chromium/ Copper/Manganese/ Seleni/Zn 1 ml/ Insulin Human Regular 15 unit/ Total Parenteral Nutrition/Amino Acids/Dextrose/ Fat Emulsion Intravenous 1,800 ml @ 75 mls/hr TPN CONT IV Last administered on 09/16/19at 23:13; Start 09/16/19 at 22:00; Stop 09/17/19 at 21:59; Status DC Potassium Chloride 80 meq/ Magnesium Sulfate 20 meq/ Multivitamins 10 ml/Chromium/ Copper/Manganese/ Seleni/Zn 1 ml/ Insulin Human Regular 15 unit/ Total Parenteral Nutrition/Amino Acids/Dextrose/ Fat Emulsion Intravenous 1,800 ml @ 75 mls/hr TPN CONT IV Last administered on 09/17/19at 22:30; Start 09/17/19 at 22:00; Stop 09/18/19 at 21:59; Status DC Potassium Chloride 80 meq/ Magnesium Sulfate 20 meq/ Multivitamins 10 ml/C hromium/ Copper/Manganese/ Seleni/Zn 1 ml/ Insulin Human Regular 15 unit/ Total Parenteral Nutrition/Amino Acids/Dextrose/ Fat Emulsion Intravenous 1,800 ml @ 75 mls/hr TPN CONT IV Last administered on 09/18/19at 21:54; Start 09/18/19 at 22:00; Stop 09/19/19 at 21:59; Status DC Potassium Chloride/Water 100 ml @ 100 mls/hr 1X ONCE IV Last administered on 09/19/19at 10:15; Start 09/19/19 at 10:00; Stop 09/19/19 at 10:59; Status DC Potassium Chloride 90 meq/ Magnesium Sulfate 20 meq/ Multivitamins 10 ml/General Milling Superintendent mium/ Copper/Manganese/ Seleni/Zn 1 ml/ Insulin Human Regular 20 unit/ Total Parenteral Nutrition/Amino Acids/Dextrose/ Fat Emulsion Intravenous 1,800 ml @ 75 mls/hr TPN CONT IV Last administered on 09/19/19at 22:28; Start 09/19/19 at 22:00; Stop 09/20/19 at 21:59; Status DC Potassium Chloride 90 meq/ Magnesium Sulfate 20 meq/ Multivitamins 10 ml/Chromium/ Copper/Manganese/ Seleni/Zn 1 ml/ Insulin Human Regular 20 unit/ Total Parenteral Nutrition/Amino Acids/Dextrose/ Fat Emulsion Intravenous 1,800 ml @ 75 mls/hr TPN CONT IV Last administered on 09/20/19at 22:08; Start 09/20/19 at 22:00; Stop 09/21/19 at 21:59; Status DC Lorazepam (Ativan Inj) 0.25 mg PRN Q4HRS PRN IVP ANXIETY / AGITATION Last administered on 10/15/19at 13:37; Start 09/21/19 at 07:30 Potassium Chloride 90 meq/ Magnesium Sulfate 20 meq/ Multivitamins 10 ml/Chromium/ Copper/Manganese/ Seleni/Zn 1 ml/ Insulin Human Regular 20 unit/ Total Parenteral Nutrition/Amino Acids/Dextrose/ Fat Emulsion Intravenous 1,800 ml @ 75 mls/hr TPN CONT IV Last administered on 09/21/19at 23:13; Start 09/21/19 at 22:00; Stop 09/22/19 at 21:59; Status DC Furosemide (Lasix) 40 mg DAILY IVP Last administered on 09/23/19at 11:14; Start 09/21/19 at 13:30; Stop 09/25/19 at 09:12; Status DC Fluoxetine HCl (PROzac) 20 mg QHS PEG Last administered on 10/24/19at 21:47; Start 09/22/19 at 21:00 Fentanyl (Duragesic 50mcg/ Hr Patch) 1 patch Q72H TD Last administered on 09/22/19at 21:22; Start 09/22/19 at 21:00; Stop 10/01/19 at 12:00; Status DC Potassium Chloride 40 meq/ Potassium Acetate 60 meq/Magnesium Sulfate 10 meq/ Multivitamins 10 ml/Chromium/ Copper/Manganese/ Seleni/Zn 1 ml/ Insulin Human Regular 20 unit/ Total Parenteral Nutrition/Amino Acids/Dextrose/ Fat Emulsion Intravenous 1,800 ml @ 75 mls/hr TPN CONT IV Last administered on 09/23/19at 00:03; Start 09/22/19 at 22:00; Stop 09/23/19 at 21:59; Status DC Potassium Acetate 80 meq/Magnesium Sulfate 5 meq/ Multivitamins 10 ml/Chromium/ Copper/Manganese/ Seleni/Zn 1 ml/ Insulin Human Regular 20 unit/ Total Parenteral Nutrition/Amino Acids/Dextrose/ Fat Emulsion Intravenous 1,920 ml @ 80 mls/hr TPN CONT IV Last administered on 09/23/19at 21:59; Start 09/23/19 at 22:00; Stop 09/24/19 at 21:59; Status DC Potassium Acetate 60 meq/Magnesium Sulfate 5 meq/ Multivitamins 10 ml/Chromium/ Copper/Manganese/ Seleni/Zn 1 ml/ Insulin Human Regular 30 unit/ Total Parenteral Nutrition/Amino Acids/Dextrose/ Fat Emulsion Intravenous 1,920 ml @ 80 mls/hr TPN CONT IV Last administered on 09/24/19at 21:54; Start 09/24/19 at 22:00; Stop 09/25/19 at 21:59; Status DC Norepinephrine Bitartrate 8 mg/ Dextrose 258 ml @ 13.332 mls/ hr CONT PRN IV PER PROTOCOL Last administered on 10/20/19at 09:09; Start 09/25/19 at 06:30 Albumin Human 500 ml @ 125 mls/hr 1X ONCE IV Last administered on 09/25/19at 08:10; Start 09/25/19 at 08:15; Stop 09/25/19 at 12:14; Status DC Potassium Acetate 40 meq/Magnesium Sulfate 5 meq/ Multivitamins 10 ml/Chromium/ Copper/Manganese/ Seleni/Zn 1 ml/ Insulin Human Regular 30 unit/ Total Parenteral Nutrition/Amino Acids/Dextrose/ Fat Emulsion Intravenous 1,920 ml @ 80 mls/hr TPN CONT IV Last administered on 09/25/19at 22:23; Start 09/25/19 at 22:00; Stop 09/26/19 at 21:59; Status DC Meropenem 1 gm/ Sodium Chloride 100 ml @ 200 mls/hr Q8HRS IV ; Start 09/25/19 at 14:00; Status Cancel Meropenem 1 gm/ Sodium Chloride 100 ml @ 200 mls/hr Q8HRS IV Last administered on 09/25/19at 11:04; Start 09/25/19 at 10:00; Stop 09/25/19 at 13:00; Status DC Meropenem 1 gm/ Sodium Chloride 100 ml @ 200 mls/hr Q12HR IV Last administered on 10/13/19at 08:27; Start 09/25/19 at 21:00; Stop 10/13/19 at 08:56; Status DC Sodium Chloride 1,000 ml @ 1,000 mls/hr 1X ONCE IV Last administered on 09/25/19at 11:06; Start 09/25/19 at 10:45; Stop 09/25/19 at 11:44; Status DC Micafungin Sodium 100 mg/Dextrose 100 ml @ 100 mls/hr Q24H IV Last administered on 10/12/19at 12:34; Start 09/25/19 at 11:00; Stop 10/13/19 at 08:56; Status DC Daptomycin 410 mg/ Sodium Chloride 50 ml @ 100 mls/hr Q24H IV Last administered on 09/27/19at 13:33; Start 09/25/19 at 14:00; Stop 09/28/19 at 08:30; Status DC Midazolam HCl (Versed) 2 mg STK-MED ONCE .ROUTE ; Start 09/25/19 at 14:47; Stop 09/25/19 at 14:48; Status DC Fentanyl Citrate (Fentanyl 2ml Vial) 100 mcg STK-MED ONCE .ROUTE ; Start 09/25/19 at 14:47; Stop 09/25/19 at 14:48; Status DC Flumazenil (Romazicon) 0.5 mg STK-MED ONCE IV ; Start 09/25/19 at 14:48; Stop 09/25/19 at 14:48; Status DC Naloxone HCl (Narcan) 0.4 mg STK-MED ONCE .ROUTE ; Start 09/25/19 at 14:48; Stop 09/25/19 at 14:48; Status DC Lidocaine HCl (Lidocaine 1% 20ml Vial) 20 ml STK-MED ONCE .ROUTE ; Start 09/25/19 at 14:48; Stop 09/25/19 at 14:48; Status DC Midazolam HCl (Versed) 2 mg 1X ONCE IV Last administered on 09/25/19at 15:28; Start 09/25/19 at 15:00; Stop 09/25/19 at 15:01; Status DC Fentanyl Citrate (Fentanyl 2ml Vial) 100 mcg 1X ONCE IV Last administered on 09/25/19at 15:28; Start 09/25/19 at 15:00; Stop 09/25/19 at 15:01; Status DC Lidocaine HCl (Lidocaine 1% 20ml Vial) 20 ml 1X ONCE INJ Last administered on 09/25/19at 15:30; Start 09/25/19 at 15:00; Stop 09/25/19 at 15:01; Status DC Sodium Chloride 1,000 ml @ 100 mls/hr Q10H IV Last administered on 10/04/19at 07:30; Start 09/25/19 at 20:00; Stop 10/04/19 at 11:26; Status DC Sodium Bicarbonate (Sodium Bicarb Adult 8.4% Syr) 50 meq 1X ONCE IV Last administered on 09/25/19at 21:47; Start 09/25/19 at 22:00; Stop 09/25/19 at 22:01; Status DC Potassium Acetate 40 meq/Magnesium Sulfate 5 meq/ Multivitamins 10 ml/Chromium/ Copper/Manganese/ Seleni/Zn 1 ml/ Insulin Human Regular 30 unit/ Total Parenteral Nutrition/Amino Acids/Dextrose/ Fat Emulsion Intravenous 1,920 ml @ 80 mls/hr TPN CONT IV Last administered on 09/26/19at 22:28; Start 09/26/19 at 22:00; Stop 09/27/19 at 21:59; Status DC Sodium Chloride 500 ml @ 500 mls/hr 1X ONCE IV Last administered on 09/27/19at 06:39; Start 09/27/19 at 06:45; Stop 09/27/19 at 07:44; Status DC Potassium Acetate 40 meq/Magnesium Sulfate 5 meq/ Multivitamins 10 ml/Chromium/ Copper/Manganese/ Seleni/Zn 1 ml/ Insulin Human Regular 30 unit/ Total Parenteral Nutrition/Amino Acids/Dextrose/ Fat Emulsion Intravenous 1,920 ml @ 80 mls/hr TPN CONT IV Last administered on 09/27/19at 22:03; Start 09/27/19 at 22:00; Stop 09/28/19 at 21:59; Status DC Metoprolol Tartrate (Lopressor Vial) 5 mg PRN Q6HRS PRN IVP HYPERTENSION Last administered on 10/06/19at 10:14; Start 09/28/19 at 09:00 Potassium Acetate 40 meq/Magnesium Sulfate 5 meq/ Multivitamins 10 ml/Chromium/ Copper/Manganese/ Seleni/Zn 1 ml/ Insulin Human Regular 30 unit/ Total Parenteral Nutrition/Amino Acids/Dextrose/ Fat Emulsion Intravenous 1,920 ml @ 80 mls/hr TPN CONT IV Last administered on 09/28/19at 21:26; Start 09/28/19 at 22:00; Stop 09/29/19 at 21:59; Status DC Potassium Acetate 40 meq/Magnesium Sulfate 5 meq/ Multivitamins 10 ml/Chromium/ Copper/Manganese/ Seleni/Zn 1 ml/ Insulin Human Regular 30 unit/ Total Parenteral Nutrition/Amino Acids/Dextrose/ Fat Emulsion Intravenous 1,920 ml @ 80 mls/hr TPN CONT IV Last administered on 09/29/19at 23:23; Start 09/29/19 at 22:00; Stop 09/30/19 at 21:59; Status DC Potassium Acetate 40 meq/Magnesium Sulfate 5 meq/ Multivitamins 10 ml/Chromium/ Copper/Manganese/ Seleni/Zn 1 ml/ Insulin Human Regular 30 unit/ Total Parenteral Nutrition/Amino Acids/Dextrose/ Fat Emulsion Intravenous 1,920 ml @ 80 mls/hr TPN CONT IV Last administered on 09/30/19at 21:35; Start 09/30/19 at 22:00; Stop 10/01/19 at 21:59; Status DC Furosemide (Lasix) 20 mg 1X ONCE IVP Last administered on 10/01/19at 06:26; Start 10/01/19 at 06:15; Stop 10/01/19 at 06:16; Status DC Methylprednisolone Sodium Succinate (SOLU-Medrol 125MG VIAL) 125 mg 1X ONCE IV Last administered on 10/01/19at 06:26; Start 10/01/19 at 06:15; Stop 10/01/19 at 06:16; Status DC Albuterol/ Ipratropium (Duoneb) 3 ml Q4HRS NEB Last administered on 10/25/19at 12:05; Start 10/01/19 at 08:00 Fentanyl Citrate 30 ml @ 0 mls/hr CONT PRN IV SEE PROTOCOL Last administered on 10/22/19at 08:03; Start 10/01/19 at 06:00; Stop 10/22/19 at 12:42; Status DC Propofol 100 ml @ 0 mls/hr CONT PRN IV SEE PROTOCOL Last administered on 10/08/19at 23:50; Start 10/01/19 at 06:00 Fentanyl Citrate (Fentanyl 2ml Vial) 25 mcg PRN Q1HR PRN IV SEE COMMENTS; Start 10/01/19 at 06:00 Fentanyl Citrate (Fentanyl 2ml Vial) 50 mcg PRN Q1HR PRN IV SEE COMMENTS; Start 10/01/19 at 06:00 Chlorhexidine Gluconate (Peridex) 15 ml BID MM ; Start 10/01/19 at 09:00; Stop 10/01/19 at 07:58; Status DC Potassium Acetate 40 meq/Magnesium Sulfate 5 meq/ Multivitamins 10 ml/Chromium/ Copper/Manganese/ Seleni/Zn 1 ml/ Insulin Human Regular 30 unit/ Total Parenteral Nutrition/Amino Acids/Dextrose/ Fat Emulsion Intravenous 1,920 ml @ 80 mls/hr TPN CONT IV Last administered on 10/01/19at 21:19; Start 10/01/19 at 22:00; Stop 10/02/19 at 21:59; Status DC Acetylcysteine (Mucomyst 20% Resp Treatment) 600 mg BID NEB Last administered on 10/07/19at 09:33; Start 10/01/19 at 21:00; Stop 10/07/19 at 10:39; Status DC Magnesium Sulfate 100 ml @ 25 mls/hr 1X ONCE IV Last administered on 10/01/19at 15:48; Start 10/01/19 at 15:45; Stop 10/01/19 at 19:44; Status DC Potassium Acetate 40 meq/Magnesium Sulfate 5 meq/ Multivitamins 10 ml/Chromium/ Copper/Manganese/ Seleni/Zn 1 ml/ Insulin Human Regular 30 unit/ Total Parenteral Nutrition/Amino Acids/Dextrose/ Fat Emulsion Intravenous 1,920 ml @ 80 mls/hr TPN CONT IV Last administered on 10/02/19at 21:35; Start 10/02/19 at 22:00; Stop 10/03/19 at 21:59; Status DC Potassium Chloride/Water 100 ml @ 100 mls/hr Q1H IV Last administered on 10/03/19at 08:31; Start 10/03/19 at 07:00; Stop 10/03/19 at 08:59; Status DC Potassium Acetate 40 meq/Magnesium Sulfate 5 meq/ Multivitamins 10 ml/Chromium/ Copper/Manganese/ Seleni/Zn 1 ml/ Insulin Human Regular 30 unit/ Total Parenteral Nutrition/Amino Acids/Dextrose/ Fat Emulsion Intravenous 1,920 ml @ 80 mls/hr TPN CONT IV Last administered on 10/03/19at 21:54; Start 10/03/19 at 22:00; Stop 10/04/19 at 19:34; Status DC Lidocaine HCl (Buffered Lidocaine 1%) 3 ml STK-MED ONCE .ROUTE ; Start 10/03/19 at 12:14; Stop 10/03/19 at 12:14; Status DC Lidocaine HCl (Buffered Lidocaine 1%) 3 ml 1X ONCE IJ Last administered on 10/03/19at 13:11; Start 10/03/19 at 13:00; Stop 10/03/19 at 13:01; Status DC Magnesium Sulfate 50 ml @ 25 mls/hr 1X ONCE IV ; Start 10/04/19 at 08:15; Stop 10/04/19 at 10:14; Status DC Potassium Acetate 40 meq/Magnesium Sulfate 10 meq/ Multivitamins 10 ml/Chromium/ Copper/Manganese/ Seleni/Zn 1 ml/ Insulin Human Regular 20 unit/ Total Parenteral Nutrition/Amino Acids/Dextrose/ Fat Emulsion Intravenous 1,920 ml @ 80 mls/hr TPN CONT IV Last administered on 10/04/19at 21:32; Start 10/04/19 at 22:00; Stop 10/05/19 at 21:59; Status DC Potassium Chloride/Water 100 ml @ 100 mls/hr Q1H IV Last administered on 10/05/19at 09:12; Start 10/05/19 at 08:00; Stop 10/05/19 at 09:59; Status DC Alteplase, Recombinant (Cathflo For Central Catheter Clearance) 4 mg 1X ONCE INT CAT ; Start 10/05/19 at 09:15; Stop 10/05/19 at 09:16; Status UNV Alteplase, Recombinant (Cathflo For Central Catheter Clearance) 4 mg 1X ONCE INT CAT ; Start 10/05/19 at 09:15; Stop 10/05/19 at 09:16; Status UNV Alteplase, Recombinant (Cathflo For Central Catheter Clearance) 4 mg 1X ONCE INT CAT ; Start 10/05/19 at 09:15; Stop 10/05/19 at 09:16; Status UNV Alteplase, Recombinant 4 mg/ Sodium Chloride 20 ml @ 20 mls/hr 1X ONCE IV Last administered on 10/05/19at 10:10; Start 10/05/19 at 10:00; Stop 10/05/19 at 10:59; Status DC Alteplase, Recombinant 4 mg/ Sodium Chloride 20 ml @ 20 mls/hr 1X ONCE IV Last administered on 10/05/19at 10:09; Start 10/05/19 at 10:00; Stop 10/05/19 at 10:59; Status DC Alteplase, Recombinant 4 mg/ Sodium Chloride 20 ml @ 20 mls/hr 1X ONCE IV Last administered on 10/05/19at 10:09; Start 10/05/19 at 10:00; Stop 10/05/19 at 10:59; Status DC Potassium Acetate 60 meq/Magnesium Sulfate 10 meq/ Multivitamins 10 ml/Chromium/ Copper/Manganese/ Seleni/Zn 1 ml/ Insulin Human Regular 20 unit/ Total Parenteral Nutrition/Amino Acids/Dextrose/ Fat Emulsion Intravenous 1,920 ml @ 80 mls/hr TPN CONT IV Last administered on 10/05/19at 21:55; Start 10/05/19 at 22:00; Stop 10/06/19 at 21:59; Status DC Albumin Human 500 ml @ 125 mls/hr 1X ONCE IV Last administered on 10/06/19at 12:01; Start 10/06/19 at 11:15; Stop 10/06/19 at 15:14; Status DC Sodium Chloride 500 ml @ 500 mls/hr 1X ONCE IV Last administered on 10/06/19at 13:50; Start 10/06/19 at 11:15; Stop 10/06/19 at 12:14; Status DC Potassium Acetate 60 meq/Magnesium Sulfate 14 meq/ Multivitamins 10 ml/Chromium/ Copper/Manganese/ Seleni/Zn 1 ml/ Insulin Human Regular 20 unit/ Total Parenteral Nutrition/Amino Acids/Dextrose/ Fat Emulsion Intravenous 1,920 ml @ 80 mls/hr TPN CONT IV Last administered on 10/06/19at 22:26; Start 10/06/19 at 22:00; Stop 10/07/19 at 21:59; Status DC Ciprofloxacin/ Dextrose 200 ml @ 200 mls/hr Q12HR IV Last administered on 10/13/19at 08:27; Start 10/06/19 at 21:00; Stop 10/13/19 at 08:56; Status DC Albumin Human 250 ml @ 62.5 mls/hr 1X ONCE IV Last administered on 10/07/19at 11:09; Start 10/07/19 at 11:00; Stop 10/07/19 at 14:59; Status DC Furosemide (Lasix) 20 mg 1X ONCE IVP Last administered on 10/07/19at 14:52; Start 10/07/19 at 10:45; Stop 10/07/19 at 10:49; Status DC Potassium Acetate 60 meq/Magnesium Sulfate 14 meq/ Multivitamins 10 ml/Chromium/ Copper/Manganese/ Seleni/Zn 1 ml/ Insulin Human Regular 15 unit/ Total Parenteral Nutrition/Amino Acids/Dextrose/ Fat Emulsion Intravenous 1,920 ml @ 80 mls/hr TPN CONT IV Last administered on 10/07/19at 22:08; Start 10/07/19 at 22:00; Stop 10/08/19 at 21:59; Status DC Potassium Acetate 60 meq/Magnesium Sulfate 14 meq/ Multivitamins 10 ml/Chromium/ Copper/Manganese/ Seleni/Zn 1 ml/ Insulin Human Regular 15 unit/ Total Parenteral Nutrition/Amino Acids/Dextrose/ Fat Emulsion Intravenous 1,920 ml @ 80 mls/hr TPN CONT IV Last administered on 10/08/19at 22:12; Start 10/08/19 at 22:00; Stop 10/09/19 at 21:59; Status DC Potassium Acetate 60 meq/Magnesium Sulfate 14 meq/ Multivitamins 10 ml/Chromium/ Copper/Manganese/ Seleni/Zn 1 ml/ Insulin Human Regular 15 unit/ Total Parenteral Nutrition/Amino Acids/Dextrose/ Fat Emulsion Intravenous 1,920 ml @ 80 mls/hr TPN CONT IV Last administered on 10/09/19at 22:22; Start 10/09/19 at 22:00; Stop 10/10/19 at 21:59; Status DC Furosemide (Lasix) 20 mg 1X ONCE IVP Last administered on 10/10/19at 11:07; Start 10/10/19 at 10:30; Stop 10/10/19 at 10:34; Status DC Potassium Acetate 60 meq/Magnesium Sulfate 14 meq/ Multivitamins 10 ml/Chromium/ Copper/Manganese/ Seleni/Zn 1 ml/ Insulin Human Regular 15 unit/ Sodium Chloride 20 meq/Total Parenteral Nutrition/Amino Acids/Dextrose/ Fat Emulsion Intravenous 1,920 ml @ 80 mls/hr TPN CONT IV Last administered on 10/10/19at 21:54; Start 10/10/19 at 22:00; Stop 10/11/19 at 21:59; Status DC Potassium Acetate 30 meq/Magnesium Sulfate 14 meq/ Multivitamins 10 ml/Chromium/ Copper/Manganese/ Seleni/Zn 1 ml/ Insulin Human Regular 15 unit/ Sodium Chloride 20 meq/Potassium Chloride 30 meq/ Total Parenteral Nutrition/Amino Acids/Dextrose/ Fat Emulsion Intravenous 1,920 ml @ 80 mls/hr TPN CONT IV Last administered on 10/11/19at 21:46; Start 10/11/19 at 22:00; Stop 10/12/19 at 21:59; Status DC Sodium Chloride 80 meq/Potassium Chloride 30 meq/ Potassium Acetate 30 meq/Magnesium Sulfate 14 meq/ Multivitamins 10 ml/Chromium/ Copper/Manganese/ Seleni/Zn 1 ml/ Insulin Human Regular 15 unit/ Total Parenteral Nutrition/Amino Acids/Dextrose/ Fat Emulsion Intravenous 1,920 ml @ 80 mls/hr TPN CONT IV Last administered on 10/12/19at 22:33; Start 10/12/19 at 22:00; Stop 10/13/19 at 21:59; Status DC Furosemide (Lasix) 40 mg 1X ONCE IVP Last administered on 10/12/19at 16:27; Start 10/12/19 at 15:30; Stop 10/12/19 at 15:33; Status DC Albumin Human 250 ml @ 62.5 mls/hr 1X ONCE IV Last administered on 10/12/19at 16:27; Start 10/12/19 at 15:30; Stop 10/12/19 at 19:29; Status DC Sodium Chloride 80 meq/Potassium Chloride 30 meq/ Potassium Acetate 30 meq/Magnesium Sulfate 14 meq/ Multivitamins 10 ml/Chromium/ Copper/Manganese/ Seleni/Zn 1 ml/ Insulin Human Regular 15 unit/ Total Parenteral Nutrition/Amino Acids/Dextrose/ Fat Emulsion Intravenous 1,920 ml @ 80 mls/hr TPN CONT IV Last administered on 10/13/19at 22:25; Start 10/13/19 at 22:00; Stop 10/14/19 at 21:59; Status DC Sodium Chloride 80 meq/Potassium Chloride 30 meq/ Potassium Acetate 30 meq/Magnesium Sulfate 14 meq/ Multivitamins 10 ml/Chromium/ Copper/Manganese/ Seleni/Zn 1 ml/ Insulin Human Regular 15 unit/ Total Parenteral Nutrition/Amino Acids/Dextrose/ Fat Emulsion Intravenous 1,920 ml @ 80 mls/hr TPN CONT IV Last administered on 10/14/19at 21:32; Start 10/14/19 at 22:00; Stop 10/15/19 at 21:59; Status DC Sodium Chloride 80 meq/Potassium Chloride 30 meq/ Potassium Acetate 30 meq/Magnesium Sulfate 14 meq/ Multivitamins 10 ml/Chromium/ Copper/Manganese/ Seleni/Zn 1 ml/ Insulin Human Regular 15 unit/ Total Parenteral Nutrition/Amino Acids/Dextrose/ Fat Emulsion Intravenous 1,920 ml @ 80 mls/hr TPN CONT IV Last administered on 10/15/19at 21:53; Start 10/15/19 at 22:00; Stop 10/16/19 at 21:59; Status DC Acetylcysteine (Mucomyst 20% Resp Treatment) 600 mg RTBID NEB Last administered on 10/25/19at 08:00; Start 10/15/19 at 12:00 Sodium Chloride 80 meq/Potassium Chloride 30 meq/ Potassium Acetate 30 meq/Magnesium Sulfate 14 meq/ Multivitamins 10 ml/Chromium/ Copper/Manganese/ Seleni/Zn 1 ml/ Insulin Human Regular 15 unit/ Total Parenteral Nutrition/Amino Acids/Dextrose/ Fat Emulsion Intravenous 1,920 ml @ 80 mls/hr TPN CONT IV Last administered on 10/16/19at 22:06; Start 10/16/19 at 22:00; Stop 10/17/19 at 21:59; Status DC Meropenem 500 mg/ Sodium Chloride 50 ml @ 100 mls/hr Q6HRS IV Last administered on 10/25/19at 12:22; Start 10/16/19 at 18:00 Daptomycin 500 mg/ Sodium Chloride 50 ml @ 100 mls/hr Q24H IV Last administered on 10/24/19at 21:47; Start 10/16/19 at 19:00; Stop 10/25/19 at 08:13; Status DC Sodium Chloride 80 meq/Potassium Chloride 30 meq/ Potassium Acetate 30 meq/Magnesium Sulfate 14 meq/ Multivitamins 10 ml/Chromium/ Copper/Manganese/ Seleni/Zn 1 ml/ Insulin Human Regular 15 unit/ Total Parenteral Nutrition/Amino Acids/Dextrose/ Fat Emulsion Intravenous 1,920 ml @ 80 mls/hr TPN CONT IV Last administered on 10/17/19at 22:09; Start 10/17/19 at 22:00; Stop 10/18/19 at 21:59; Status DC Heparin Sodium (Porcine) 1000 unit/Sodium Chloride 1,001 ml @ 1,001 mls/hr 1X ONCE IRR ; Start 10/18/19 at 06:00; Stop 10/18/19 at 06:59; Status DC Propofol (Diprivan) 200 mg STK-MED ONCE IV ; Start 10/18/19 at 07:44; Stop 10/18/19 at 07:44; Status DC Lidocaine HCl (Lidocaine Pf 2% Vial) 5 ml STK-MED ONCE .ROUTE ; Start 10/18/19 at 07:44; Stop 10/18/19 at 07:44; Status DC Fentanyl Citrate (Fentanyl 2ml Vial) 100 mcg STK-MED ONCE .ROUTE ; Start 10/18/19 at 07:44; Stop 10/18/19 at 07:44; Status DC Rocuronium Farner (Zemuron) 100 mg STK-MED ONCE .ROUTE ; Start 10/18/19 at 07:44; Stop 10/18/19 at 07:44; Status DC Micafungin Sodium 100 mg/Dextrose 100 ml @ 100 mls/hr Q24H IV Last administered on 10/25/19at 08:33; Start 10/18/19 at 08:30 Bupivacaine HCl/ Epinephrine Bitart (Sensorcain-Epi 0.5%-1:[id number] Mpf) 30 ml STK-MED ONCE .ROUTE ; Start 10/18/19 at 08:34; Stop 10/18/19 at 08:35; Status DC Iohexol (Omnipaque 300 Mg/ml) 50 ml STK-MED ONCE .ROUTE Last administered on 10/18/19at 13:30; Start 10/18/19 at 08:35; Stop 10/18/19 at 08:35; Status DC Sodium Chloride 80 meq/Potassium Chloride 30 meq/ Potassium Acetate 30 meq/Magnesium Sulfate 14 meq/ Multivitamins 10 ml/Chromium/ Copper/Manganese/ Seleni/Zn 1 ml/ Insulin Human Regular 15 unit/ Total Parenteral Nutrition/Amino Acids/Dextrose/ Fat Emulsion Intravenous 1,920 ml @ 80 mls/hr TPN CONT IV Last administered on 10/19/19at 01:22; Start 10/18/19 at 22:00; Stop 10/19/19 at 21:59; Status DC Phenylephrine HCl (Brayden-Synephrine Inj) 10 mg STK-MED ONCE .ROUTE ; Start 10/18/19 at 10:15; Stop 10/18/19 at 10:15; Status DC Desflurane (Suprane) 90 ml STK-MED ONCE IH ; Start 10/18/19 at 10:18; Stop 10/18/19 at 10:19; Status DC Albumin Human 500 ml @ As Directed STK-MED ONCE IV ; Start 10/18/19 at 11:06; Stop 10/18/19 at 11:06; Status DC Vasopressin (Vasostrict) 20 unit STK-MED ONCE .ROUTE ; Start 10/18/19 at 12:23; Stop 10/18/19 at 12:23; Status DC Phenylephrine HCl (Brayden-Synephrine Inj) 10 mg STK-MED ONCE .ROUTE ; Start 10/18/19 at 13:33; Stop 10/18/19 at 13:33; Status DC Phenylephrine HCl (Brayden-Synephrine Inj) 10 mg STK-MED ONCE .ROUTE ; Start 10/18/19 at 13:33; Stop 10/18/19 at 13:33; Status DC Ondansetron HCl (Zofran) 4 mg STK-MED ONCE .ROUTE ; Start 10/18/19 at 13:33; Stop 10/18/19 at 13:33; Status DC Enoxaparin Sodium (Lovenox 40mg Syringe) 40 mg Q24H SQ Last administered on 10/25/19at 08:33; Start 10/19/19 at 08:00 Sodium Chloride (Normal Saline Flush) 3 ml QSHIFT PRN IV AFTER MEDS AND BLOOD DRAWS; Start 10/18/19 at 14:45 Naloxone HCl (Narcan) 0.4 mg PRN Q2MIN PRN IV SEE INSTRUCTIONS; Start 10/18/19 at 14:45 Sodium Chloride 1,000 ml @ 25 mls/hr Q24H IV Last administered on 10/22/19at 12:37; Start 10/18/19 at 14:33 Morphine Sulfate (Morphine Sulfate) 1 mg PRN Q1HR PRN IV PAIN; Start 10/18/19 at 14:45 Midazolam HCl 100 mg/Sodium Chloride 100 ml @ 1 mls/hr CONT PRN IV SEE I/O RECORD Last administered on 10/21/19at 18:48; Start 10/18/19 at 14:45 Phenylephrine HCl (PHENYLEPHRINE in 0.9% NACL PF) 1 mg STK-MED ONCE IV ; Start 10/18/19 at 14:44; Stop 10/18/19 at 14:45; Status DC Ephedrine Sulfate (ePHEDrine PF IN SALINE SYRINGE) 50 mg STK-MED ONCE IV ; Start 10/18/19 at 14:45; Stop 10/18/19 at 14:45; Status DC Vasopressin 20 unit/Dextrose 101 ml @ 12 mls/hr CONT PRN IV SEE I/O RECORD Last administered on 10/25/19at 04:17; Start 10/18/19 at 15:30 Sodium Chloride 1,000 ml @ 1,000 mls/hr 1X ONCE IV Last administered on 10/18/19at 15:42; Start 10/18/19 at 15:45; Stop 10/18/19 at 16:44; Status DC Albumin Human 500 ml @ 125 mls/hr 1X ONCE IV ; Start 10/18/19 at 16:00; Stop 10/18/19 at 19:59; Status DC Albumin Human 500 ml @ 125 mls/hr PRN Q1HR PRN IV PER PROTOCOL; Start 10/18/19 at 15:45 Magnesium Sulfate 50 ml @ 25 mls/hr 1X ONCE IV Last administered on 10/18/19at 17:02; Start 10/18/19 at 16:30; Stop 10/18/19 at 18:29; Status DC Sodium Bicarbonate (Sodium Bicarb Adult 8.4% Syr) 50 meq STK-MED ONCE .ROUTE ; Start 10/18/19 at 16:20; Stop 10/18/19 at 16:20; Status DC Sodium Bicarbonate (Sodium Bicarb Adult 8.4% Syr) 100 meq 1X ONCE IV Last administered on 10/18/19at 17:07; Start 10/18/19 at 16:30; Stop 10/18/19 at 16:31; Status DC Sodium Bicarbonate 150 meq/Dextrose 1,150 ml @ 75 mls/hr 1X ONCE IV Last administered on 10/18/19at 20:02; Start 10/18/19 at 16:30; Stop 10/19/19 at 07:49; Status DC Sodium Chloride 80 meq/Potassium Chloride 30 meq/ Potassium Acetate 30 meq/Magnesium Sulfate 14 meq/ Multivitamins 10 ml/Chromium/ Copper/Manganese/ Seleni/Zn 1 ml/ Insulin Human Regular 15 unit/ Total Parenteral Nutrition/Amino Acids/Dextrose/ Fat Emulsion Intravenous 1,920 ml @ 80 mls/hr TPN CONT IV Last administered on 10/19/19at 23:05; Start 10/19/19 at 22:00; Stop 10/20/19 at 21:59; Status DC Sodium Chloride 100 meq/Potassium Chloride 30 meq/ Potassium Acetate 30 meq/Magnesium Sulfate 12 meq/ Multivitamins 10 ml/Chromium/ Copper/Manganese/ Seleni/Zn 1 ml/ Insulin Human Regular 15 unit/ Total Parenteral Nutrition/Amino Acids/Dextrose/ Fat Emulsion Intravenous 1,920 ml @ 80 mls/hr TPN CONT IV Last administered on 10/20/19at 21:52; Start 10/20/19 at 22:00; Stop 10/21/19 at 21:59; Status DC Sodium Chloride 100 meq/Potassium Chloride 30 meq/ Potassium Acetate 30 meq/Magnesium Sulfate 12 meq/ Multivitamins 10 ml/Chromium/ Copper/Manganese/ Seleni/Zn 1 ml/ Insulin Human Regular 15 unit/ Total Parenteral Nutrition/Amino Acids/Dextrose/ Fat Emulsion Intravenous 1,920 ml @ 80 mls/hr TPN CONT IV Last administered on 10/21/19at 21:46; Start 10/21/19 at 22:00; Stop 10/22/19 at 21:59; Status DC Sodium Chloride 100 meq/Potassium Chloride 30 meq/ Potassium Acetate 30 meq/Magnesium Sulfate 12 meq/ Multivitamins 10 ml/Chromium/ Copper/Manganese/ Seleni/Zn 1 ml/ Insulin Human Regular 15 unit/ Total Parenteral Nutrition/Amino Acids/Dextrose/ Fat Emulsion Intravenous 1,800 ml @ 75 mls/hr TPN CONT IV Last administered on 10/22/19at 22:04; Start 10/22/19 at 22:00; Stop 10/23/19 at 21:59; Status DC Fentanyl Citrate 55 ml @ 0 mls/hr CONT PRN IV SEE COMMENTS Last administered on 10/24/19at 23:55; Start 10/22/19 at 13:00 Sodium Chloride 100 meq/Potassium Chloride 30 meq/ Potassium Acetate 30 meq/Magnesium Sulfate 12 meq/ Multivitamins 10 ml/Chromium/ Copper/Manganese/ Seleni/Zn 1 ml/ Insulin Human Regular 15 unit/ Total Parenteral Nutrition/Amino Acids/Dextrose/ Fat Emulsion Intravenous 1,680 ml @ 70 mls/hr TPN CONT IV Last administered on 10/23/19at 21:23; Start 10/23/19 at 22:00; Stop 10/24/19 at 21:59; Status DC Sodium Chloride 110 meq/Potassium Chloride 30 meq/ Potassium Acetate 30 meq/Magnesium Sulfate 15 meq/ Multivitamins 10 ml/Chromium/ Copper/Manganese/ Seleni/Zn 1 ml/ Insulin Human Regular 15 unit/ Total Parenteral Nutrition/Amino Acids/Dextrose/ Fat Emulsion Intravenous 1,680 ml @ 70 mls/hr TPN CONT IV Last administered on 10/24/19at 21:48; Start 10/24/19 at 22:00; Stop 10/25/19 at 21:59 Sodium Chloride 110 meq/Potassium Chloride 30 meq/ Potassium Acetate 30 meq/Magnesium Sulfate 15 meq/ Multivitamins 10 ml/Chromium/ Copper/Manganese/ Seleni/Zn 1 ml/ Insulin Human Regular 15 unit/ Total Parenteral Nutrition/Amino Acids/Dextrose/ Fat Emulsion Intravenous 1,680 ml @ 70 mls/hr TPN CONT IV ; Start 10/25/19 at 22:00; Stop 10/26/19 at 21:59 Active Scripts Active Reported Bisoprolol Fumarate 5 Mg Tablet 10 Mg PO DAILY Vitals/I & O Vital Sign - Last 24 Hours 10/24/19 10/24/19 10/24/19 10/24/19 15:00 15:28 16:00 16:00 Temp 98.4 98.4 Pulse 78 100 Resp 22 22 B/P (MAP) 121/70 (87) 124/76 (92) Pulse Ox 100 99 100 O2 Delivery Ventilator Ventilator Ventilator Mechanical Ventilator 10/24/19 10/24/19 10/24/19 10/24/19 17:00 17:24 18:00 19:00 Pulse 84 82 78 Resp 22 22 14 B/P (MAP) 104/52 (69) 106/58 (74) 96/63 (74) Pulse Ox 100 99 100 100 O2 Delivery Ventilator Ventilator Ventilator Ventilator 10/24/19 10/24/19 10/24/19 10/24/19 19:54 19:58 20:00 20:00 Temp 98.0 98.0 Pulse 80 Resp 20 B/P (MAP) 111/70 (84) Pulse Ox 99 100 100 O2 Delivery Ventilator Ventilator Ventilator Mechanical Ventilator 10/24/19 10/24/19 10/24/19 10/24/19 21:00 22:00 23:00 23:51 Pulse 92 89 88 Resp 22 25 16 B/P (MAP) 165/97 (119) 149/84 (105) 156/100 (118) Pulse Ox 100 100 100 100 O2 Delivery Ventilator Ventilator Ventilator Ventilator 10/24/19 10/25/19 10/25/19 10/25/19 23:55 00:00 00:01 00:25 Temp 100.1 100.1 Pulse 121 Resp 25 23 15 B/P (MAP) 141/77 (98) Pulse Ox 100 100 100 O2 Delivery Mechanical Ventilator Ventilator Ventilator O2 Flow Rate 40.0 40.0 10/25/19 10/25/19 10/25/19 10/25/19 01:00 02:00 03:00 03:48 Pulse 114 80 110 Resp 14 12 16 B/P (MAP) 98/51 (67) 93/51 (65) 129/83 (98) Pulse Ox 100 99 95 100 O2 Delivery Ventilator Ventilator Ventilator Ventilator 10/25/19 10/25/19 10/25/19 10/25/19 04:00 04:00 05:00 06:00 Temp 98.1 98.1 Pulse 96 97 79 Resp 19 16 24 B/P (MAP) 132/68 (89) 109/73 (85) 134/92 (106) Pulse Ox 95 100 100 O2 Delivery Mechanical Ventilator Ventilator Ventilator Ventilator 10/25/19 10/25/19 10/25/19 10/25/19 07:00 08:00 08:00 09:00 Temp 97.8 97.8 Pulse 91 98 91 Resp 19 14 14 B/P (MAP) 144/99 (114) 133/76 (95) 118/77 (91) Pulse Ox 100 98 100 O2 Delivery Ventilator Ventilator Mechanical Ventilator Ventilator 10/25/19 10/25/19 10/25/19 10/25/19 09:00 10:00 11:00 12:00 Temp 96.9 96.9 Pulse 86 105 112 Resp 14 14 14 B/P (MAP) 131/73 (92) 109/56 (73) 122/79 (93) Pulse Ox 100 100 100 99 O2 Delivery Ventilator Ventilator Ventilator Ventilator 10/25/19 10/25/19 10/25/19 10/25/19 12:00 12:05 13:00 14:00 Pulse 107 103 Resp 14 14 B/P (MAP) 111/66 (81) 119/76 (90) Pulse Ox 100 100 100 O2 Delivery Mechanical Ventilator Ventilator Ventilator Ventilator Intake and Output 10/24/19 10/24/19 10/25/19 15:00 23:00 07:00 Intake Total 300 ml 1743 ml 1430.4 ml Output Total 560 ml 1405 ml 1380 ml Balance -260 ml 338 ml 50.4 ml Justicifation of Admission Dx: Justifications for Admission: Justification of Admission Dx: Yes GREG HERRERA MD Oct 25, 2019 14:08
[2019-10-25] MEDS: IV NORMAL SALINE 1000ML BAG 1,000 ML IV SCH (21:31)
[2019-10-25] MEDS ORDERED: AMINO ACID IV SCH ×10 (22:00)
[2019-10-25] MEDS ORDERED: TOTAL PARENTERAL NUTRITION IV SCH ×10 (22:00)
[2019-10-25] MEDS ORDERED: [UNRECOGNIZED DRUG - OTHER] IV SCH ×10 (22:00)
[2019-10-25] MEDS ORDERED: DEXTROSE 70% IV SCH ×10 (22:00)
[2019-10-26] VITALS (24 sets, daily range): BP systolic 107–158; BP diastolic 57–94
[2019-10-26] MEDS: MEROPENEM 500 MG in IV NORMAL SALINE 50ML 50 ML IV SCH ×4 (00:46→17:44)
[2019-10-26] MEDS: INSULIN LISPRO 300 UNITS/3 ML VIAL. SQ SCH ×4 (00:49→17:44)
[2019-10-26] MEDS: IPRATRPIUM/ALBUTEROL 0.5/2.5MG 3 ML NEBU. NEB SCH ×6 (03:53→23:49)
[2019-10-26 07:07] LABS: ALBUMIN 1.1 g/dL (3.4-5.0); ALBUMIN/GLOBULIN RATIO 0.3 (1.0-1.7); CALCIUM 10.2 mg/dL (8.5-10.1); CREATININE 0.5 mg/dL (0.6-1.0); GFR 131.1; POTASSIUM 4.2 mmol/L (3.5-5.1); TOTAL BILIRUBIN 0.2 mg/dL (0.2-1.0); TOTAL PROTEIN 5.1 g/dL (6.4-8.2)
--- NOTE | 2019-10-26 07:16 | PDOC ---
Infectious Disease Note Subjective Subjective alert and coughing - Nodding Some nausea Remains on ventilator support, FiO2 40% 5 PEEP TPN off vasopressin, off levophed ROS ROS Difficult to completely obtain as only nods periodically Vital Sign Vital Signs Vital Signs Date Time Temp Pulse Resp B/P (MAP) Pulse Ox O2 Delivery O2 Flow Rate FiO2 10/26/19 06:00 107 20 136/70 (92) 100 Ventilator 10/26/19 04:00 98.7 98.7 Physical Exam PHYSICAL EXAM GENERAL: Alert, NAD tired appearing HEENT: Pupils equal, oral cavity dry. + NGT NECK: Tracheostomy LUNGS: Diminished aeration bases, CT on left HEART: S1, S2, regular w/ PVCs ABDOMEN: Sightly Distended, bowel sounds hypoactive, soft, goyal x 2, [address] chi, G-J tube and + wound vac : Lind in place EXTREMITIES: Generalized edema, no cyanosis. SCDs & Podus boots bilaterally SKIN: warm touch. No signs of rash. LUE-PICC without signs of complications LUE art-line out, mottling left forearm about ole art-line site is improving. RP palpable, cap refill brisk. NEURO: alert and some responsive - tracking Labs Lab Laboratory Tests Test 10/25/19 12:21 10/25/19 17:50 10/26/19 00:45 10/26/19 06:20 Glucose (Fingerstick) 164 mg/dL (70-99) 135 mg/dL (70-99) 186 mg/dL (70-99) Sodium Level 143 mmol/L (136-145) Potassium Level 4.2 mmol/L (3.5-5.1) Chloride Level 109 mmol/L (98-107) Carbon Dioxide Level 31 mmol/L (21-32) Anion Gap 3 (6-14) Blood Urea Nitrogen 15 mg/dL (7-20) Creatinine 0.5 mg/dL (0.6-1.0) Estimated GFR (Cockcroft-Gault) 131.1 BUN/Creatinine Ratio 30 (6-20) Glucose Level 139 mg/dL (70-99) Calcium Level 10.2 mg/dL (8.5-10.1) Total Bilirubin 0.2 mg/dL (0.2-1.0) Aspartate Amino Transf (AST/SGOT) 25 U/L (15-37) Alanine Aminotransferase (ALT/SGPT) 37 U/L (14-59) Alkaline Phosphatase 239 U/L (46-116) Total Protein 5.1 g/dL (6.4-8.2) Albumin 1.1 g/dL (3.4-5.0) Albumin/Globulin Ratio 0.3 (1.0-1.7) Test 10/26/19 06:24 Glucose (Fingerstick) 134 mg/dL (70-99) Micro 6/7 GRAM STAIN Final Final GRAM NEGATIVE RODS:MODERATE SQUAMOUS EPI CELL:NOT APPLICABLE PMN (WBCs):RARE YEAST:MODERATE Unless otherwise specified, Testing Performed by: [facility] [address] [place] [address] For Inquires, the Physician may contact the Microbiology department at [phone] ANAEROBIC-AEROBIC CULTURE Preliminary Preliminary MANY GRAM NEGATIVE RODS on 09/27/19 at 1158 FINAL ID= [[email or web address]] PSEUDOMONAS AERUGINOSA ANTIMICROBIAL SUSCEPTIBILITY Preliminary Comment NEG ALEXANDRA 56 PSEUDOMONAS AERUGINOSA ANTIBIOTIC RESULT INTERPRETATION AMIKACIN <=16 S AZTREONAM >16 R CEFTAZIDIME >16 R CIPROFLOXACIN <=0.25 S CEFEPIME 16 I CEFTAZIDIME/AVIBACTAM <=4 S GENTAMICIN <=2 S CONTINUED ON NEXT PAGE - RUN DATE: 09/29/19 [facility] *LIVE* PAGE 2 RUN TIME: 1016 Specimen Inquiry - SPEC: [id number] PATIENT: SCOTT CUELLAR [id number] (Continued) Procedure Result ANTIMICROBIAL SUSCEPTIBILITY Preliminary (continued) LEVOFLOXACIN <=0.5 S MEROPENEM <=1 S PIPERACILLIN/TAZOBACTAM 64 S TOBRAMYCIN <=2 S Unless otherwise specified, Testing Performed by: [address] [address] For Inquires, the Physician may contact the Microbiology department at [phone] CT Scan 09/23 IMPRESSION: 1. Removal of the percutaneous pigtail drainage catheters since the prior exam. Sequela of pancreatitis with extensive pseudocysts again demonstrated, the right-sided collections are slightly larger since the prior exam, the left-sided collections are stable. See above. 2. Moderate to large left pleural effusion with atelectasis and collapse of most of the left lower lobe, stable. Small right pleural effusion is stable. 3. Gallstone. Objective Assessment Patient with prolonged hospitalization more than 3 months Multiple medical problems Multiple surgical procedures Off Versed 10/21 S/P Exp. Lap, SAURABH, subtotal cholecystectomy with cholangiogram, G-J tube placement & pancreatic necrosectomy on October 17 YEAST/PSA Leukocytosis - mild increase today but all parameters are up Fever intermittently source likely GI Severe protein malnutrition Acute gallstone pancreatitis with persistent necrosis -CT a/p 07/27. Increased ascites. 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 status post KAYLIN drain placement; C. parapsilosis. s/p drain 08/23 + yeast & high amylase; s/p additional drain on 08/25. Drains removed. -08/23. fluid devyn parapsilosis fluid, amylase high - 09/23 showed multiple pseudocysts, slight larger on the right. s/p drains x 3, 09/24. + PSAE (MDRO-R Cefepime, Zosyn ALEXANDRA < 64) and yeast, -09/24 s/p drain replacement x 3; fluid cult PSAE (MDRO), yeast; treated Ascites s/p paracentesis 08/02 & 08/23. C. parapsilosis Cholelithiasis with thickening of the gallbladder wall. JUANA, Hyperkalemia, Metabolic acidosis off dialysis Acute hypoxic resp failure. trach/vent. sputum 09/30 + PSAE (I merrem) Pleural effusions s/p left thoracentesis, 08/29. no culture. s/p left chest tube, 10/02 no growth Hypocalcemia Prediabetes HTN Anemia s/p RBCs Plan Plan of Care PSA from 10/17 I to Meropenem but WBC stable so will try to hold changing abx to Cipro and or Avycaz to try and save potential abx options continue merrem and micafungin but d/c Dapto 10/24 Monitor labs in am f/u cultures/susceptibilities still pending wound care /drain management as directed Contact isolation for CRE/MDRO Critically ill D/w nursing WILLY BARAKAT MD Oct 26, 2019 07:16
[2019-10-26 07:26] LABS: BASO % 0 % (0-3); EOS # 0.2 x10^3/uL (0.0-0.7); EOS % 1 % (0-3); HEMATOCRIT 26.3 % (36.0-47.0); HEMOGLOBIN 8.7 g/dL (12.0-15.5); LYMPH # 1.4 x10^3/uL (1.0-4.8); LYMPH % 9 % (24-48); MEAN CORPUSCULAR HEMOGLOBIN 30 pg (25-35); MEAN CORPUSCULAR HGB CONC 33 g/dL (31-37); MEAN CORPUSCULAR VOLUME 89 fL (79-100); MONO % 7 % (0-9); NEUT # 12.8 x10^3/uL (1.8-7.7); NEUT % 83 % (31-73); PLATELET COUNT 597 x10^3/uL (140-400); RED BLOOD COUNT 2.95 x10^6/uL (3.50-5.40); RED CELL DISTRIBUTION WIDTH 15.1 % (11.5-14.5); WHITE BLOOD COUNT 15.4 x10^3/uL (4.0-11.0)
[2019-10-26] MEDS: ONDANSETRON PF 4 MG/2 ML VIAL. IV PRN (08:07)
[2019-10-26] MEDS: PANTOPRAZOLE IV PUSH 40 MG VIAL. IVP SCH (08:07)
[2019-10-26] MEDS: MICAFUNGIN 100 MG in IV DEXTROSE 5% 100ML 100 ML IV SCH (08:07)
[2019-10-26] MEDS: ENOXAPARIN 40 MG/0.4 ML SYRINGE. SQ SCH (08:08)
[2019-10-26] MEDS: ACETYLCYSTEINE 20% for RESP TX 600 MG/3 ML. NEB SCH ×2 (08:25→20:00)
--- NOTE | 2019-10-26 08:37 | PDOC ---
PULMONARY PROGRESS NOTES Subjective Currently on pressure support of 12 large amounts of secretions being coughed up Vitals Vital Signs Date Time Temp Pulse Resp B/P (MAP) Pulse Ox O2 Delivery O2 Flow Rate FiO2 10/26/19 07:00 109 16 140/81 (100) 100 Ventilator 10/26/19 04:00 98.7 98.7 Comments trach/sedated on vent Lungs: Crackles Cardiovascular: S1, S2 Abdomen: Soft, Non-tender, Other (multiple KAYLIN drains ) Extremities: Other (+1 BLE edema) Skin: Warm Labs Laboratory Tests Test 10/24/19 11:56 10/24/19 16:51 10/25/19 00:00 10/25/19 05:20 Glucose (Fingerstick) 154 mg/dL (70-99) 153 mg/dL (70-99) 123 mg/dL (70-99) White Blood Count 15.0 x10^3/uL (4.0-11.0) Red Blood Count 2.54 x10^6/uL (3.50-5.40) Hemoglobin 7.5 g/dL (12.0-15.5) Hematocrit 22.5 % (36.0-47.0) Mean Corpuscular Volume 89 fL (79-100) Mean Corpuscular Hemoglobin 30 pg (25-35) Mean Corpuscular Hemoglobin Concent 33 g/dL (31-37) Red Cell Distribution Width 14.8 % (11.5-14.5) Platelet Count 414 x10^3/uL (140-400) Neutrophils (%) (Auto) 86 % (31-73) Lymphocytes (%) (Auto) 7 % (24-48) Monocytes (%) (Auto) 6 % (0-9) Eosinophils (%) (Auto) 1 % (0-3) Basophils (%) (Auto) 0 % (0-3) Neutrophils # (Auto) 12.9 x10^3/uL (1.8-7.7) Lymphocytes # (Auto) 1.0 x10^3/uL (1.0-4.8) Monocytes # (Auto) 0.9 x10^3/uL (0.0-1.1) Eosinophils # (Auto) 0.2 x10^3/uL (0.0-0.7) Basophils # (Auto) 0.0 x10^3/uL (0.0-0.2) Test 10/25/19 05:32 10/25/19 12:21 10/25/19 17:50 10/26/19 00:45 Glucose (Fingerstick) 159 mg/dL (70-99) 164 mg/dL (70-99) 135 mg/dL (70-99) 186 mg/dL (70-99) Test 10/26/19 06:20 10/26/19 06:24 White Blood Count 15.4 x10^3/uL (4.0-11.0) Red Blood Count 2.95 x10^6/uL (3.50-5.40) Hemoglobin 8.7 g/dL (12.0-15.5) Hematocrit 26.3 % (36.0-47.0) Mean Corpuscular Volume 89 fL (79-100) Mean Corpuscular Hemoglobin 30 pg (25-35) Mean Corpuscular Hemoglobin Concent 33 g/dL (31-37) Red Cell Distribution Width 15.1 % (11.5-14.5) Platelet Count 597 x10^3/uL (140-400) Neutrophils (%) (Auto) 83 % (31-73) Lymphocytes (%) (Auto) 9 % (24-48) Monocytes (%) (Auto) 7 % (0-9) Eosinophils (%) (Auto) 1 % (0-3) Basophils (%) (Auto) 0 % (0-3) Neutrophils # (Auto) 12.8 x10^3/uL (1.8-7.7) Lymphocytes # (Auto) 1.4 x10^3/uL (1.0-4.8) Monocytes # (Auto) 1.0 x10^3/uL (0.0-1.1) Eosinophils # (Auto) 0.2 x10^3/uL (0.0-0.7) Basophils # (Auto) 0.0 x10^3/uL (0.0-0.2) Sodium Level 143 mmol/L (136-145) Potassium Level 4.2 mmol/L (3.5-5.1) Chloride Level 109 mmol/L (98-107) Carbon Dioxide Level 31 mmol/L (21-32) Anion Gap 3 (6-14) Blood Urea Nitrogen 15 mg/dL (7-20) Creatinine 0.5 mg/dL (0.6-1.0) Estimated GFR (Cockcroft-Gault) 131.1 BUN/Creatinine Ratio 30 (6-20) Glucose Level 139 mg/dL (70-99) Calcium Level 10.2 mg/dL (8.5-10.1) Total Bilirubin 0.2 mg/dL (0.2-1.0) Aspartate Amino Transf (AST/SGOT) 25 U/L (15-37) Alanine Aminotransferase (ALT/SGPT) 37 U/L (14-59) Alkaline Phosphatase 239 U/L (46-116) Total Protein 5.1 g/dL (6.4-8.2) Albumin 1.1 g/dL (3.4-5.0) Albumin/Globulin Ratio 0.3 (1.0-1.7) Glucose (Fingerstick) 134 mg/dL (70-99) Laboratory Tests Test 10/25/19 12:21 10/25/19 17:50 10/26/19 00:45 10/26/19 06:20 Glucose (Fingerstick) 164 mg/dL (70-99) 135 mg/dL (70-99) 186 mg/dL (70-99) White Blood Count 15.4 x10^3/uL (4.0-11.0) Red Blood Count 2.95 x10^6/uL (3.50-5.40) Hemoglobin 8.7 g/dL (12.0-15.5) Hematocrit 26.3 % (36.0-47.0) Mean Corpuscular Volume 89 fL (79-100) Mean Corpuscular Hemoglobin 30 pg (25-35) Mean Corpuscular Hemoglobin Concent 33 g/dL (31-37) Red Cell Distribution Width 15.1 % (11.5-14.5) Platelet Count 597 x10^3/uL (140-400) Neutrophils (%) (Auto) 83 % (31-73) Lymphocytes (%) (Auto) 9 % (24-48) Monocytes (%) (Auto) 7 % (0-9) Eosinophils (%) (Auto) 1 % (0-3) Basophils (%) (Auto) 0 % (0-3) Neutrophils # (Auto) 12.8 x10^3/uL (1.8-7.7) Lymphocytes # (Auto) 1.4 x10^3/uL (1.0-4.8) Monocytes # (Auto) 1.0 x10^3/uL (0.0-1.1) Eosinophils # (Auto) 0.2 x10^3/uL (0.0-0.7) Basophils # (Auto) 0.0 x10^3/uL (0.0-0.2) Sodium Level 143 mmol/L (136-145) Potassium Level 4.2 mmol/L (3.5-5.1) Chloride Level 109 mmol/L (98-107) Carbon Dioxide Level 31 mmol/L (21-32) Anion Gap 3 (6-14) Blood Urea Nitrogen 15 mg/dL (7-20) Creatinine 0.5 mg/dL (0.6-1.0) Estimated GFR (Cockcroft-Gault) 131.1 BUN/Creatinine Ratio 30 (6-20) Glucose Level 139 mg/dL (70-99) Calcium Level 10.2 mg/dL (8.5-10.1) Total Bilirubin 0.2 mg/dL (0.2-1.0) Aspartate Amino Transf (AST/SGOT) 25 U/L (15-37) Alanine Aminotransferase (ALT/SGPT) 37 U/L (14-59) Alkaline Phosphatase 239 U/L (46-116) Total Protein 5.1 g/dL (6.4-8.2) Albumin 1.1 g/dL (3.4-5.0) Albumin/Globulin Ratio 0.3 (1.0-1.7) Test 10/26/19 06:24 Glucose (Fingerstick) 134 mg/dL (70-99) Medications Active Scripts Medications Dose Route/Sig Max Daily Dose Days Date Category Bisoprolol Fumarate 5 Mg Tablet 10 Mg PO DAILY 07/04/19 Reported Comments CXR 10/16/19 IMPRESSION: No significant interval change compared to 10/13/2019. ct abdomen /pelvis 09/23 1. Removal of the percutaneous pigtail drainage catheters since the prior exam. Sequela of pancreatitis with extensive pseudocysts again demonstrated, the right-sided collections are slightly larger since the prior exam, the left-sided collections are stable. See above. 2. Moderate to large left pleural effusion with atelectasis and collapse of most of the left lower lobe, stable. Small right pleural effusion is stable. 3. Gallstone. ct chest 10/02 reviewed GRAM NEG COCCOBACILLI:MANY SQUAMOUS EPI CELL:RARE PMN (WBCs):FEW Unless otherwise specified, Testing Performed by: [facility] [address] [place] [address] For Inquires, the Physician may contact the Microbiology department at [phone] RESPIRATORY CULTURE Final Final MANY GRAM NEGATIVE RODS on 10/03/19 at 1107 FINAL ID= [[email or web address] [email or web address]] MICRO CHARGES PSEUDOMONAS AERUGINOSA ANTIMICROBIAL SUSCEPTIBILITY Final Comment NEG ALEXANDRA 56 PSEUDOMONAS AERUGINOSA ANTIBIOTIC RESULT INTERPRETATION AMIKACIN <=16 S AZTREONAM <=4 S CEFTAZIDIME <=1 S CIPROFLOXACIN <=0.25 S CEFEPIME <=2 S CEFTAZIDIME/AVIBACTAM <=4 S GENTAMICIN <=2 S LEVOFLOXACIN <=0.5 S Impression . IMPRESSION: 1. Acute hypoxemic respiratory failure secondary to ARDS status post trach, developed anemia 09/24, blood drainage from RLQ abdomen drain site, and surrounding firmness / developed septic shock 09/24 from abdomen source, required levo /7 s/p 3 new drains 09/24 with brown color drainage, 2. Gallstone pancreatitis, now with ongoing bleeding from prior drain. Anemic. s/p Tx multiple units over several days 3. septic shock/sepsis, recurrent 09/24, source abdomen. , 4. Acute kidney injury-, Off HD--renal function decling. suspect JUANA on CKD due to hypotension , improved now 5. Acute gallstone pancreatitis. 6. Hypoalbuminemia. 7. Moderate persistent effusions, s/p left thora 08/29, reaccumulation of left effusion. O2 requirement not changed. 8. Fever- ,hypotension. suspect recurrent sepsis/ likely pancreatic source. Per ID, per surgery-- 9. Chronic anemia-- ongoing / s/p PRBC 10. Covid 19 testing negative 11. Moderate to large ascites-S/P paracentisis 12.S/P paracentisis with 4 liters removed on 08/03/19 13. S/P IR drain placement on 08/26/2019, removal, re inserted 09/24 14. Depression/Anxiety 15. Increase effusion, ? loculated/ s/p chest tube.. drainage slowing down. 10/17 S/P Exploratory laparotomy, lysis of adhesions, subtotal cholecystectomy with cholangiogram, gastrojejunostomy tube placement, pancreatic necrosectomy leukocytosis- improving Plan . Discontinue ventilator trial of trach shield Back on pressure support if she does not tolerate trach Will discontinue sedation and try pressure support as tolerated S/P Exploratory laparotomy, lysis of adhesions, subtotal cholecystectomy with cholangiogram, gastrojejunostomy tube placement, pancreatic necrosectomy with multiple drains in place-- on 10/17 ABX per ID Follow surgery recs Continue TF and TPN for nutrition support Vasopressors for hypotension to keep MAP above 65 DVT/GI PPX D/W RN and RT CC time 30 minutes HARMEET BEE MD Oct 26, 2019 08:36
--- NOTE | 2019-10-26 09:06 | PDOC ---
PROGRESS NOTES Chief Complaint Chief Complaint A/P Acute hypoxic Respiratory failure required mechanical ventilation Tracheostomy bilateral pleural effusions/pulm edema s/p Throacentesis on 10/03/2019 Severe Acute gallstone pancreatitis (not a surgical candidate at this time) with necrosis Acute kidney failure now requiring dialysis Gallstones (Calculus of gallbladder with acute cholecystitis without obstruction) HTN Intractable pain Intractable nausea Covid 19 negative. Acute on chronic anemia EEG: No seizure activityFever - better currently - intermittent could be from underlying pancreatitis blood cults 08/21 - neg so far ? Ileus with vomiting Abd distention - U/S and CT reviewed s/p 0.4 L of opaque, debris-containing ascites was removed 08/23 Acute pancreatitis with persistent necrosis Gallstone pancreatitis with necrosis. -CT A/P 09/23 showed multiple pseudocysts, slight larger on the right. s/p drains x 3, 09/24. + PSAE (MDRO-R Cefepime, Zosyn ALEXANDRA < 64) and yeast, -s/p drain 08/14. C. parapsilosis. s/p drain 08/23 + yeast & high amylase; s/p additional drain on 08/25. Drains removed. Ascites s/p paracentesis 08/02 & 08/23. C. parapsilosis JUANA. off HD. A large fluid collection in the pancreatic bed has slightly decreased in size, described below, the pancreas itself is difficult to visualize, which could be due to necrosis or obscuration of pancreatic parenchyma from the surrounding fluid collection.10/02 - 08/14 status post KAYLIN drain placement + C paropsilosis. s/p additional drains 08/25 Anemia - S/p PRBCs Cholelithiasis with thickening of the gallbladder wall. Leucocytosis improving JUANA, hyperkalemia, Metabolic acidosis off dialysis hypocalcemia Prediabetes HTN s/p trach ESRD on HD Hyperglycemia severe protein-caloric malnutrition Moderate to large left pleural effusion with atelectasis and collapse of most of the left lower lobe, stable Dispo - ICU, critically ill Poor prognosis History of Present Illness History of Present Illness 09/25: IR placed drain on 09/24. 4u PRBC after Hb drop. Hb 8.8 today. Off Levophed this morning. T-max 100.3. Much more lethargic today. CXR with left sided diffuse infiltrates. 6/9: Tachycardic overnight into the 140s. NGT clamped. On BIPAP currently. Drains with serosanguinous discharge. WBC 8, Tmax 99.6F. 09/27: Seen on trach shield in ICU. Hypertensive and tachycardic. Labs stable. blood stained drainage from drains. Afebrile. 09/28: Seen on trach shield in ICU. She is a bit confused, drowsy, but when sitting up is conversational and confusion somewhat clears. She is asking for more pain medication. Stable drains, still very tachy.Na 147 09/29: Patient vomited overnight. Aspirated. Tried to pull her trach out, she was told she would without her trach, she said "I know, I just want to go home". Hb 7.6. Afebrile, still very tachycardic. 1055ml out of right sided KAYLIN drain 09/30: Overnight hypoxic, on BIPAP. CXR with left sided white out lung. Significant mucous plug suctioned by RT with improvement in her ABG after 2 hours this morning. Not really active, tired, lethargic. 890ml out of drains past 24 hours. On vent. D/w daughter bedside. 10/16: To OR for pancreatic necrosectomy, cholecystectomy, lysis of adhesions, gastrostomy tube placement 10/24, awake on vent, weaning sedation, cont other, still with marked drainage Still on fentanyl. WBC 15.4, Hb 8.7 Metabolic panel WNL except calcium 10.2 with albumin 1.1. She awakens off sedation, still connected to vent currently. prognosis still poor, but improving slowly Vitals Vitals Vital Signs Date Time Temp Pulse Resp B/P (MAP) Pulse Ox O2 Delivery O2 Flow Rate FiO2 10/26/19 08:27 100 Ventilator 10/26/19 07:00 109 16 140/81 (100) 10/26/19 04:00 98.7 98.7 Physical Exam Physical Exam GENERAL: Alert, NAD tired appearing HEENT: Pupils equal, oral cavity dry. + NGT NECK: Tracheostomy LUNGS: Diminished aeration bases, CT on left HEART: S1, S2, regular w/ PVCs ABDOMEN: Sightly Distended, bowel sounds hypoactive, soft, goyal x 2, 3 KAYLIN drains, G-J tube and + wound vac : Lind in place EXTREMITIES: Generalized edema, no cyanosis. SCDs & Podus boots bilaterally SKIN: warm touch. No signs of rash. LUE-PICC without signs of complications LUE art-line out, mottling left forearm about ole art-line site is improving. RP palpable, cap refill brisk. NEURO: alert and some responsive - tracking General: Alert, No acute distress Heart: Regular rate (SR/ST), Other (distant heart sounds) Lungs: Crackles Abdomen: Soft, Other (tubes in place, G-tube portion with bilious output, manny J tube feeds, various drains with decreasing output) Extremities: Other (Diffuse edema) Skin: No rashes, No significant lesion Labs LABS Laboratory Tests Test 10/25/19 12:21 10/25/19 17:50 10/26/19 00:45 10/26/19 06:20 Glucose (Fingerstick) 164 mg/dL (70-99) 135 mg/dL (70-99) 186 mg/dL (70-99) White Blood Count 15.4 x10^3/uL (4.0-11.0) Red Blood Count 2.95 x10^6/uL (3.50-5.40) Hemoglobin 8.7 g/dL (12.0-15.5) Hematocrit 26.3 % (36.0-47.0) Mean Corpuscular Volume 89 fL (79-100) Mean Corpuscular Hemoglobin 30 pg (25-35) Mean Corpuscular Hemoglobin Concent 33 g/dL (31-37) Red Cell Distribution Width 15.1 % (11.5-14.5) Platelet Count 597 x10^3/uL (140-400) Neutrophils (%) (Auto) 83 % (31-73) Lymphocytes (%) (Auto) 9 % (24-48) Monocytes (%) (Auto) 7 % (0-9) Eosinophils (%) (Auto) 1 % (0-3) Basophils (%) (Auto) 0 % (0-3) Neutrophils # (Auto) 12.8 x10^3/uL (1.8-7.7) Lymphocytes # (Auto) 1.4 x10^3/uL (1.0-4.8) Monocytes # (Auto) 1.0 x10^3/uL (0.0-1.1) Eosinophils # (Auto) 0.2 x10^3/uL (0.0-0.7) Basophils # (Auto) 0.0 x10^3/uL (0.0-0.2) Sodium Level 143 mmol/L (136-145) Potassium Level 4.2 mmol/L (3.5-5.1) Chloride Level 109 mmol/L (98-107) Carbon Dioxide Level 31 mmol/L (21-32) Anion Gap 3 (6-14) Blood Urea Nitrogen 15 mg/dL (7-20) Creatinine 0.5 mg/dL (0.6-1.0) Estimated GFR (Cockcroft-Gault) 131.1 BUN/Creatinine Ratio 30 (6-20) Glucose Level 139 mg/dL (70-99) Calcium Level 10.2 mg/dL (8.5-10.1) Total Bilirubin 0.2 mg/dL (0.2-1.0) Aspartate Amino Transf (AST/SGOT) 25 U/L (15-37) Alanine Aminotransferase (ALT/SGPT) 37 U/L (14-59) Alkaline Phosphatase 239 U/L (46-116) Total Protein 5.1 g/dL (6.4-8.2) Albumin 1.1 g/dL (3.4-5.0) Albumin/Globulin Ratio 0.3 (1.0-1.7) Test 10/26/19 06:24 Glucose (Fingerstick) 134 mg/dL (70-99) Assessment and Plan Assessmemt and Plan Problems Medical Problems: (1) Acute pancreatitis Status: Acute (2) Cholelithiasis Status: Acute Comment Review of Relevant I have reviewed the following items kolby (where applicable) has been applied. Labs Laboratory Tests Test 10/24/19 11:56 10/24/19 16:51 10/25/19 00:00 10/25/19 05:20 Glucose (Fingerstick) 154 mg/dL (70-99) 153 mg/dL (70-99) 123 mg/dL (70-99) White Blood Count 15.0 x10^3/uL (4.0-11.0) Red Blood Count 2.54 x10^6/uL (3.50-5.40) Hemoglobin 7.5 g/dL (12.0-15.5) Hematocrit 22.5 % (36.0-47.0) Mean Corpuscular Volume 89 fL (79-100) Mean Corpuscular Hemoglobin 30 pg (25-35) Mean Corpuscular Hemoglobin Concent 33 g/dL (31-37) Red Cell Distribution Width 14.8 % (11.5-14.5) Platelet Count 414 x10^3/uL (140-400) Neutrophils (%) (Auto) 86 % (31-73) Lymphocytes (%) (Auto) 7 % (24-48) Monocytes (%) (Auto) 6 % (0-9) Eosinophils (%) (Auto) 1 % (0-3) Basophils (%) (Auto) 0 % (0-3) Neutrophils # (Auto) 12.9 x10^3/uL (1.8-7.7) Lymphocytes # (Auto) 1.0 x10^3/uL (1.0-4.8) Monocytes # (Auto) 0.9 x10^3/uL (0.0-1.1) Eosinophils # (Auto) 0.2 x10^3/uL (0.0-0.7) Basophils # (Auto) 0.0 x10^3/uL (0.0-0.2) Test 10/25/19 05:32 10/25/19 12:21 10/25/19 17:50 10/26/19 00:45 Glucose (Fingerstick) 159 mg/dL (70-99) 164 mg/dL (70-99) 135 mg/dL (70-99) 186 mg/dL (70-99) Test 10/26/19 06:20 10/26/19 06:24 White Blood Count 15.4 x10^3/uL (4.0-11.0) Red Blood Count 2.95 x10^6/uL (3.50-5.40) Hemoglobin 8.7 g/dL (12.0-15.5) Hematocrit 26.3 % (36.0-47.0) Mean Corpuscular Volume 89 fL (79-100) Mean Corpuscular Hemoglobin 30 pg (25-35) Mean Corpuscular Hemoglobin Concent 33 g/dL (31-37) Red Cell Distribution Width 15.1 % (11.5-14.5) Platelet Count 597 x10^3/uL (140-400) Neutrophils (%) (Auto) 83 % (31-73) Lymphocytes (%) (Auto) 9 % (24-48) Monocytes (%) (Auto) 7 % (0-9) Eosinophils (%) (Auto) 1 % (0-3) Basophils (%) (Auto) 0 % (0-3) Neutrophils # (Auto) 12.8 x10^3/uL (1.8-7.7) Lymphocytes # (Auto) 1.4 x10^3/uL (1.0-4.8) Monocytes # (Auto) 1.0 x10^3/uL (0.0-1.1) Eosinophils # (Auto) 0.2 x10^3/uL (0.0-0.7) Basophils # (Auto) 0.0 x10^3/uL (0.0-0.2) Sodium Level 143 mmol/L (136-145) Potassium Level 4.2 mmol/L (3.5-5.1) Chloride Level 109 mmol/L (98-107) Carbon Dioxide Level 31 mmol/L (21-32) Anion Gap 3 (6-14) Blood Urea Nitrogen 15 mg/dL (7-20) Creatinine 0.5 mg/dL (0.6-1.0) Estimated GFR (Cockcroft-Gault) 131.1 BUN/Creatinine Ratio 30 (6-20) Glucose Level 139 mg/dL (70-99) Calcium Level 10.2 mg/dL (8.5-10.1) Total Bilirubin 0.2 mg/dL (0.2-1.0) Aspartate Amino Transf (AST/SGOT) 25 U/L (15-37) Alanine Aminotransferase (ALT/SGPT) 37 U/L (14-59) Alkaline Phosphatase 239 U/L (46-116) Total Protein 5.1 g/dL (6.4-8.2) Albumin 1.1 g/dL (3.4-5.0) Albumin/Globulin Ratio 0.3 (1.0-1.7) Glucose (Fingerstick) 134 mg/dL (70-99) Laboratory Tests Test 10/25/19 12:21 10/25/19 17:50 10/26/19 00:45 10/26/19 06:20 Glucose (Fingerstick) 164 mg/dL (70-99) 135 mg/dL (70-99) 186 mg/dL (70-99) White Blood Count 15.4 x10^3/uL (4.0-11.0) Red Blood Count 2.95 x10^6/uL (3.50-5.40) Hemoglobin 8.7 g/dL (12.0-15.5) Hematocrit 26.3 % (36.0-47.0) Mean Corpuscular Volume 89 fL (79-100) Mean Corpuscular Hemoglobin 30 pg (25-35) Mean Corpuscular Hemoglobin Concent 33 g/dL (31-37) Red Cell Distribution Width 15.1 % (11.5-14.5) Platelet Count 597 x10^3/uL (140-400) Neutrophils (%) (Auto) 83 % (31-73) Lymphocytes (%) (Auto) 9 % (24-48) Monocytes (%) (Auto) 7 % (0-9) Eosinophils (%) (Auto) 1 % (0-3) Basophils (%) (Auto) 0 % (0-3) Neutrophils # (Auto) 12.8 x10^3/uL (1.8-7.7) Lymphocytes # (Auto) 1.4 x10^3/uL (1.0-4.8) Monocytes # (Auto) 1.0 x10^3/uL (0.0-1.1) Eosinophils # (Auto) 0.2 x10^3/uL (0.0-0.7) Basophils # (Auto) 0.0 x10^3/uL (0.0-0.2) Sodium Level 143 mmol/L (136-145) Potassium Level 4.2 mmol/L (3.5-5.1) Chloride Level 109 mmol/L (98-107) Carbon Dioxide Level 31 mmol/L (21-32) Anion Gap 3 (6-14) Blood Urea Nitrogen 15 mg/dL (7-20) Creatinine 0.5 mg/dL (0.6-1.0) Estimated GFR (Cockcroft-Gault) 131.1 BUN/Creatinine Ratio 30 (6-20) Glucose Level 139 mg/dL (70-99) Calcium Level 10.2 mg/dL (8.5-10.1) Total Bilirubin 0.2 mg/dL (0.2-1.0) Aspartate Amino Transf (AST/SGOT) 25 U/L (15-37) Alanine Aminotransferase (ALT/SGPT) 37 U/L (14-59) Alkaline Phosphatase 239 U/L (46-116) Total Protein 5.1 g/dL (6.4-8.2) Albumin 1.1 g/dL (3.4-5.0) Albumin/Globulin Ratio 0.3 (1.0-1.7) Test 10/26/19 06:24 Glucose (Fingerstick) 134 mg/dL (70-99) Microbiology 10/18/19 Gram Stain - Final, Complete 10/18/19 Aerobic and Anaerobic Culture - Final, Complete 10/18/19 Antimicrobic Susceptibility - Final, Complete 10/16/19 Blood Culture - Final, Complete NO GROWTH AFTER 5 DAYS 10/03/19 Gram Stain - Final, Complete 10/03/19 Aerobic and Anaerobic Culture - Final, Complete 10/01/19 Gram Stain Evaluation - Final, Complete 10/01/19 Respiratory Culture - Final, Complete 10/01/19 Antimicrobic Susceptibility - Final, Complete 09/25/19 Urine Culture - Final, Complete 09/17/19 Gram Stain - Final, Complete 09/17/19 Aerobic Culture - Final, Complete Medications Current Medications Sodium Chloride 1,000 ml @ 1,000 mls/hr Q1H IV Last administered on 07/04/19at 03:00; Start 07/04/19 at 03:00; Stop 07/04/19 at 03:59; Status DC Ondansetron HCl (Zofran) 4 mg 1X ONCE IVP Last administered on 07/04/19at 03:27; Start 07/04/19 at 03:00; Stop 07/04/19 at 03:01; Status DC Morphine Sulfate (Morphine Sulfate) 4 mg 1X ONCE IV ; Start 07/04/19 at 03:00; Stop 07/04/19 at 03:01; Status Cancel Ketorolac Tromethamine (Toradol 30mg Vial) 30 mg 1X ONCE IV Last administered on 07/04/19at 02:54; Start 07/04/19 at 03:00; Stop 07/04/19 at 03:01; Status DC Fentanyl Citrate (Fentanyl 2ml Vial) 25 mcg 1X ONCE IVP Last administered on 07/04/19at 03:23; Start 07/04/19 at 03:30; Stop 07/04/19 at 03:31; Status DC Fentanyl Citrate (Fentanyl 2ml Vial) 100 mcg STK-MED ONCE .ROUTE ; Start 07/04/19 at 03:18; Stop 07/04/19 at 03:18; Status DC Iohexol (Omnipaque 350 Mg/ml) 90 ml 1X ONCE IV Last administered on 07/04/19at 03:25; Start 07/04/19 at 03:30; Stop 07/04/19 at 03:31; Status DC Info (CONTRAST GIVEN -- Rx MONITORING) 1 each PRN DAILY PRN MC SEE COMMENTS; Start 07/04/19 at 03:30; Stop 07/06/19 at 03:29; Status DC Hydromorphone HCl (Dilaudid) 0.5 mg 1X ONCE IV Last administered on 07/04/19at 03:55; Start 07/04/19 at 04:30; Stop 07/04/19 at 04:32; Status DC Ondansetron HCl (Zofran) 4 mg PRN Q8HRS PRN IV NAUSEA/VOMITING 1ST CHOICE; Start 07/04/19 at 05:00; Stop 07/04/19 at 09:27; Status DC Morphine Sulfate (Morphine Sulfate) 2 mg PRN Q2HR PRN IV SEVERE PAIN 7-10 Last administered on 07/05/19at 12:26; Start 07/04/19 at 05:00; Stop 07/05/19 at 14:15; Status DC Sodium Chloride 1,000 ml @ 125 mls/hr Q8H IV Last administered on 07/04/19at 20:56; Start 07/04/19 at 05:00; Stop 07/05/19 at 04:59; Status DC Hydromorphone HCl (Dilaudid) 0.5 mg PRN Q3HRS PRN IV SEVERE PAIN 7-10 Last administered on 07/05/19at 10:06; Start 07/04/19 at 05:00; Stop 07/05/19 at 12:01; Status DC Piperacillin Sod/ Tazobactam Sod 4.5 gm/Sodium Chloride 100 ml @ 200 mls/hr 1X ONCE IV Last administered on 07/04/19at 05:44; Start 07/04/19 at 06:00; Stop 07/04/19 at 06:29; Status DC Ondansetron HCl (Zofran) 4 mg PRN Q4HRS PRN IV NAUSEA/VOMITING 1ST CHOICE Last administered on 10/26/19at 08:07; Start 07/04/19 at 09:30 Insulin Human Lispro (HumaLOG) 0-9 UNITS Q6HRS SQ Last administered on 10/26/19at 00:49; Start 07/04/19 at 09:30 Dextrose (Dextrose 50%-Water Syringe) 12.5 gm PRN Q15MIN PRN IV SEE COMMENTS; Start 07/04/19 at 09:30 Pantoprazole Sodium (PROTONIX VIAL for IV PUSH) 40 mg DAILYAC IVP Last ad ministered on 10/26/19at 08:07; Start 07/04/19 at 11:30 Prochlorperazine Edisylate (Compazine) 10 mg PRN Q6HRS PRN IV NAUSEA/VOMITING, 2nd CHOICE Last administered on 10/15/19at 10:53; Start 07/04/19 at 17:45 Atenolol (Tenormin) 100 mg DAILY PO ; Start 07/05/19 at 09:00; Stop 07/04/19 at 20:08; Status DC Metoprolol Tartrate (Lopressor Vial) 2.5 mg Q6HRS IVP Last administered on 06/18 11/06at 05:51; Start 07/04/19 at 20:15; Stop 07/05/19 at 10:02; Status DC Metoprolol Tartrate (Lopressor Vial) 5 mg Q6HRS IVP Last administered on 07/14/19at 00:12; Start 07/05/19 at 10:15; Stop 07/16/19 at 08:48; Status DC Hydromorphone HCl (Dilaudid) 1 mg PRN Q3HRS PRN IV SEVERE PAIN 7-10 Last administered on 07/11/19at 05:13; Start 07/05/19 at 12:00; Stop 07/19/19 at 00:25; Status DC Lidocaine HCl (Buffered Lidocaine 1%) 3 ml STK-MED ONCE .ROUTE ; Start 07/05/19 at 12:55; Stop 07/05/19 at 12:56; Status DC Albumin Human 500 ml @ 125 mls/hr 1X ONCE IV Last administered on 07/05/19at 14:33; Start 07/05/19 at 14:30; Stop 07/05/19 at 18:32; Status DC Norepinephrine Bitartrate 8 mg/ Dextrose 258 ml @ 17.299 mls/ hr CONT PRN IV PER PROTOCOL Last administered on 08/02/19at 12:48; Start 07/05/19 at 15:30; Stop 08/05/19 at 09:19; Status DC Sodium Chloride 1,000 ml @ 125 mls/hr Q8H IV Last administered on 07/05/19at 21:04; Start 07/05/19 at 16:00; Stop 07/06/19 at 02:42; Status DC Albumin Human 500 ml @ 125 mls/hr PRN BID PRN IV After every 2L NSS & BP < 90mm Last administered on 10/18/19at 16:06; Start 07/05/19 at 16:00; Stop 10/21/19 at 09:30; Status DC Iohexol (Omnipaque 300 Mg/ml) 60 ml 1X ONCE IV Last administered on 07/05/19at 17:20; Start 07/05/19 at 17:00; Stop 07/05/19 at 17:01; Status DC Info (CONTRAST GIVEN -- Rx MONITORING) 1 each PRN DAILY PRN MC SEE COMMENTS; Start 07/05/19 at 17:00; Stop 07/07/19 at 16:59; Status DC Meropenem 1 gm/ Sodium Chloride 100 ml @ 200 mls/hr Q8HRS IV Last administered on 07/06/19at 05:45; Start 07/05/19 at 20:00; Stop 07/06/19 at 08:48; Status DC Furosemide (Lasix) 40 mg 1X ONCE IVP Last administered on 07/05/19at 22:12; Start 07/05/19 at 22:30; Stop 07/05/19 at 22:31; Status DC Calcium Chloride 1000 mg/Sodium Chloride 110 ml @ 220 mls/hr 1X ONCE IV Last administered on 07/05/19at 22:11; Start 07/05/19 at 22:30; Stop 07/05/19 at 22:59 ; Status DC Albuterol Sulfate (Ventolin Neb Soln) 2.5 mg 1X ONCE NEB Last administered on 07/06/19at 00:56; Start 07/05/19 at 22:30; Stop 07/05/19 at 22:31; Status DC Insulin Human Regular (HumuLIN R VIAL) 5 unit 1X ONCE IV Last administered on 07/05/19at 22:14; Start 07/05/19 at 22:30; Stop 07/05/19 at 22:31; Status DC Magnesium Sulfate 50 ml @ 25 mls/hr 1X ONCE IV Last administered on 07/06/19at 02:57; Start 07/06/19 at 03:00; Stop 07/06/19 at 04:59; Status DC Calcium Gluconate 1000 mg/Sodium Chloride 110 ml @ 220 mls/hr 1X ONCE IV Last administered on 07/06/19at 02:46; Start 07/06/19 at 03:00; Stop 07/06/19 at 03:29; Status DC Sodium Chloride 1,000 ml @ 200 mls/hr Q5H IV Last administered on 07/06/19at 02:46; Start 07/06/19 at 03:00; Stop 07/06/19 at 10:21; Status DC Calcium Gluconate 1000 mg/Sodium Chloride 110 ml @ 220 mls/hr 1X ONCE IV Last administered on 07/06/19at 03:21; Start 07/06/19 at 03:30; Stop 07/06/19 at 03:59; Status DC Sodium Bicarbonate 50 meq/Sodium Chloride 1,050 ml @ 75 mls/hr Q14H IV Last administered on 07/10/19at 21:10; Start 07/06/19 at 07:30; Stop 07/11/19 at 10:28; Status DC Calcium Gluconate 2000 mg/Sodium Chloride 120 ml @ 220 mls/hr 1X ONCE IV Last administered on 07/06/19at 09:05; Start 07/06/19 at 07:30; Stop 07/06/19 at 08:02; Status DC Lidocaine HCl (Xylocaine-Mpf 1% 2ml Vial) 2 ml STK-MED ONCE .ROUTE ; Start 07/06/19 at 08:47; Stop 07/06/19 at 08:47; Status DC Meropenem 500 mg/ Sodium Chloride 50 ml @ 100 mls/hr Q12HR IV Last administered on 07/11/19at 21:01; Start 07/06/19 at 18:00; Stop 07/12/19 at 07:58; Status DC Lidocaine HCl (Buffered Lidocaine 1%) 3 ml STK-MED ONCE .ROUTE ; Start 07/06/19 at 09:46; Stop 07/06/19 at 09:46; Status DC Lidocaine HCl (Buffered Lidocaine 1%) 6 ml 1X ONCE INJ Last administered on 07/06/19at 10:26; Start 07/06/19 at 10:15; Stop 07/06/19 at 10:16; Status DC Info (Tpn Per Pharmacy) 1 each PRN DAILY PRN MC SEE COMMENTS Last administered on 10/25/19at 12:05; Start 07/06/19 at 12:00 Sodium Chloride 1,000 ml @ 1,000 mls/hr Q1H PRN IV hypotension; Start 07/06/19 at 12:07; Stop 07/06/19 at 18:06; Status DC Diphenhydramine HCl (Benadryl) 25 mg 1X PRN PRN IV ITCHING; Start 07/06/19 at 12:15; Stop 07/07/19 at 12:14; Status DC Diphenhydramine HCl (Benadryl) 25 mg 1X PRN PRN IV ITCHING; Start 07/06/19 at 12:15; Stop 07/07/19 at 12:14; Status DC Sodium Chloride 1,000 ml @ 400 mls/hr Q2H30M PRN IV PATENCY; Start 07/06/19 at 12:07; Stop 07/07/19 at 00:06; Status DC Info (PHARMACY MONITORING -- do not chart) 1 each PRN DAILY PRN MC SEE COMMENTS; Start 07/06/19 at 12:15; Stop 07/08/19 at 08:13; Status DC Sodium Chloride 90 meq/Calcium Gluconate 10 meq/ Multivitamins 10 ml/Chromium/ Copper/Manganese/ Seleni/Zn 1 ml/ Total Parenteral Nutrition/Amino Acids/Dextrose/ Fat Emulsion Intravenous 55.005 ml @ 2.292 mls/hr TPN CONT IV ; Start 07/06/19 at 22:00; Stop 07/06/19 at 12:33; Status DC Info (Tpn Per Pharmacy) 1 each PRN DAILY PRN MC SEE COMMENTS; Start 07/06/19 at 12:30; Status UNV Sodium Chloride 90 meq/Calcium Gluconate 10 meq/ Multivitamins 10 ml/Chromium/ Copper/Manganese/ Seleni/Zn 0.5 ml/ Total Parenteral Nutrition/Amino Acids/Dextrose/ Fat Emulsion Intravenous 1,512 ml @ 63 mls/hr TPN CONT IV Last administered on 07/06/19at 22:06; Start 07/06/19 at 22:00; Stop 07/07/19 at 21:59; Status DC Calcium Carbonate/ Glycine (Tums) 500 mg PRN AFTMEALHC PRN PO INDIGESTION; Start 07/06/19 at 17:45; Stop 08/31/19 at 10:25; Status DC Calcium Gluconate (Calcium Gluconate) 2,000 mg 1X ONCE IVP Last administered on 07/07/19at 02:19; Start 07/07/19 at 02:15; Stop 07/07/19 at 02:16; Status DC Calcium Chloride 3000 mg/Sodium Chloride 1,030 ml @ 50 mls/hr [id number] IV Last administered on 07/09/19at 02:17; Start 07/07/19 at 08:00; Stop 07/09/19 at 15:23; Status DC Lorazepam (Ativan Inj) 1 mg PRN Q4HRS PRN IVP ANXIETY / AGITATION, 2nd choic Last administered on 08/05/19at 03:51; Start 07/07/19 at 09:00; Stop 08/05/19 at 09:19; Status DC Sodium Chloride 1,000 ml @ 1,000 mls/hr Q1H PRN IV hypotension; Start 07/07/19 at 08:56; Stop 07/07/19 at 14:55; Status DC Albumin Human 200 ml @ 200 mls/hr 1X PRN PRN IV Hypotension; Start 07/07/19 at 09:00; Stop 07/07/19 at 14:59; Status DC Diphenhydramine HCl (Benadryl) 25 mg 1X PRN PRN IV ITCHING; Start 07/07/19 at 09:00; Stop 07/08/19 at 08:59; Status DC Diphenhydramine HCl (Benadryl) 25 mg 1X PRN PRN IV ITCHING; Start 07/07/19 at 09:00; Stop 07/08/19 at 08:59; Status DC Sodium Chloride 1,000 ml @ 400 mls/hr Q2H30M PRN IV PATENCY; Start 07/07/19 at 08:56; Stop 07/07/19 at 20:55; Status DC Info (PHARMACY MONITORING -- do not chart) 1 each PRN DAILY PRN MC SEE COMMENTS; Start 07/07/19 at 09:00; Status UNV Info (PHARMACY MONITORING -- do not chart) 1 each PRN DAILY PRN MC SEE COMMENTS; Start 07/07/19 at 09:00; Stop 07/08/19 at 08:13; Status DC Digoxin (Lanoxin) 500 mcg 1X ONCE IV Last administered on 07/07/19at 10:04; Start 07/07/19 at 10:00; Stop 07/07/19 at 10:01; Status DC Digoxin (Lanoxin) 125 mcg 1X ONCE IV Last administered on 07/07/19at 17:10; Start 07/07/19 at 18:00; Stop 07/07/19 at 18:01; Status DC Magnesium Sulfate 100 ml @ 25 mls/hr 1X ONCE IV Last administered on 07/07/19at 12:48; Start 07/07/19 at 13:00; Stop 07/07/19 at 16:59; Status DC Sodium Chloride 90 meq/Magnesium Sulfate 10 meq/ Calcium Gluconate 20 meq/ Multivitamins 10 ml/Chromium/ Copper/Manganese/ Seleni/Zn 0.5 ml/ Total Parenteral Nutrition/Amino Acids/Dextrose/ Fat Emulsion Intravenous 1,512 ml @ 63 mls/hr TPN CONT IV Last administered on 07/07/19at 22:25; Start 07/07/19 at 22:00; Stop 07/08/19 at 21:59; Status DC Sodium Chloride 1,000 ml @ 1,000 mls/hr Q1H PRN IV hypotension; Start 07/08/19 at 08:05; Stop 07/08/19 at 14:04; Status DC Albumin Human 200 ml @ 200 mls/hr 1X ONCE IV Last administered on 07/08/19at 08:57; Start 07/08/19 at 08:15; Stop 07/08/19 at 09:14; Status DC Diphenhydramine HCl (Benadryl) 25 mg 1X PRN PRN IV ITCHING; Start 07/08/19 at 08:15; Stop 07/09/19 at 08:14; Status DC Diphenhydramine HCl (Benadryl) 25 mg 1X PRN PRN IV ITCHING; Start 07/08/19 at 08:15; Stop 07/09/19 at 08:14; Status DC Sodium Chloride 1,000 ml @ 400 mls/hr Q2H30M PRN IV PATENCY; Start 07/08/19 at 08:05; Stop 07/08/19 at 20:04; Status DC Info (PHARMACY MONITORING -- do not chart) 1 each PRN DAILY PRN MC SEE COMMENTS; Start 07/08/19 at 08:15; Stop 07/12/19 at 07:57; Status DC Sodium Chloride 90 meq/Potassium Chloride 15 meq/ Potassium Phosphate 10 mmol/ Magnesium Sulfate 10 meq/Calcium Gluconate 20 meq/ Multivitamins 10 ml/Chromium/ Copper/Manganese/ Seleni/Zn 0.5 ml/ Total Parenteral Nutrition/Amino Acids/Dextrose/ Fat Emulsion Intravenous 1,512 ml @ 63 mls/hr TPN CONT IV Last administered on 07/08/19at 21:01; Start 07/08/19 at 22:00; Stop 07/09/19 at 21:59; Status DC Potassium Chloride/Water 100 ml @ 100 mls/hr 1X ONCE IV Last administered on 07/08/19at 14:09; Start 07/08/19 at 14:00; Stop 07/08/19 at 14:59; Status DC Benzocaine (Hurricaine One) 1 spray 1X ONCE MM Last administered on 07/08/19at 16:38; Start 07/08/19 at 14:30; Stop 07/08/19 at 14:31; Status DC Lidocaine HCl (Glydo (Lidocaine) Jelly) 1 ramu 1X ONCE MM Last administered on 07/08/19at 16:38; Start 07/08/19 at 14:30; Stop 07/08/19 at 14:31; Status DC Linezolid/Dextrose 300 ml @ 300 mls/hr Q12HR IV Last administered on 07/14/19at 21:04; Start 07/08/19 at 20:00; Stop 07/15/19 at 07:50; Status DC Acetaminophen (Tylenol) 650 mg PRN Q6HRS PRN PO MILD PAIN / TEMP; Start 07/09/19 at 03:30; Stop 07/09/19 at 03:36; Status DC Acetaminophen (Tylenol) 650 mg PRN Q6HRS PRN PEG MILD PAIN / TEMP Last administered on 08/04/19at 19:56; Start 07/09/19 at 03:36; Stop 08/31/19 at 10:25; Status DC Sodium Chloride 1,000 ml @ 1,000 mls/hr Q1H PRN IV hypotension; Start 07/09/19 at 07:50; Stop 07/09/19 at 13:49; Status DC Albumin Human 200 ml @ 200 mls/hr 1X PRN PRN IV Hypotension; Start 07/09/19 at 08:00; Stop 07/09/19 at 13:59; Status DC Sodium Chloride (Normal Saline Flush) 10 ml 1X PRN PRN IV AP catheter pack; Start 07/09/19 at 08:00; Stop 07/10/19 at 07:59; Status DC Sodium Chloride (Normal Saline Flush) 10 ml 1X PRN PRN 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; Start 07/09/19 at 08:00; Stop 07/10/19 at 07:59; Status DC Sodium Chloride 1,000 ml @ 400 mls/hr Q2H30M PRN IV PATENCY; Start 07/09/19 at 07:50; Stop 07/09/19 at 19:49; Status DC Info (PHARMACY MONITORING -- do not chart) 1 each PRN DAILY PRN MC SEE COMMENTS; Start 07/09/19 at 08:00; Status UNV Info (PHARMACY MONITORING -- do not chart) 1 each PRN DAILY PRN MC SEE COMMENTS; Start 07/09/19 at 08:00; Stop 07/11/19 at 08:25; Status DC Sodium Chloride 90 meq/Potassium Chloride 15 meq/ Potassium Phosphate 10 mmol/ M agnesium Sulfate 10 meq/Calcium Gluconate 20 meq/ Multivitamins 10 ml/Chromium/ Copper/Manganese/ Seleni/Zn 0.5 ml/ Total Parenteral Nutrition/Amino Acids/Dextrose/ Fat Emulsion Intravenous 1,512 ml @ 63 mls/hr TPN CONT IV Last administered on 07/09/19at 20:57; Start 07/09/19 at 22:00; Stop 07/10/19 at 21:59; Status DC Sodium Chloride 90 meq/Potassium Chloride 15 meq/ Potassium Phosphate 15 mmol/ Magnesium Sulfate 10 meq/Calcium Gluconate 20 meq/ Multivitamins 10 ml/Chromium/ Copper/Manganese/ Seleni/Zn 0.5 ml/ Total Parenteral Nutrition/Amino Acids/Dextrose/ Fat Emulsion Intravenous 1,512 ml @ 63 mls/hr TPN CONT IV ; Start 07/10/19 at 22:00; Stop 07/10/19 at 14:16; Status DC Sodium Chloride 90 meq/Potassium Chloride 15 meq/ Potassium Phosphate 15 mmol/ Magnesium Sulfate 10 meq/Calcium Gluconate 20 meq/ Multivitamins 10 ml/Chromium/ Copper/Manganese/ Seleni/Zn 0.5 ml/ Total Parenteral Nutrition/Amino Acids/Dextrose/ Fat Emulsion Intravenous 1,200 ml @ 50 mls/hr TPN CONT IV ; Start 07/10/19 at 22:00; Stop 07/10/19 at 14:17; Status DC Sodium Chloride 90 meq/Potassium Chloride 15 meq/ Potassium Phosphate 10 mmol/ Magnesium Sulfate 10 meq/Calcium Gluconate 20 meq/ Multivitamins 10 ml/Chromium/ Copper/Manganese/ Seleni/Zn 0.5 ml/ Total Parenteral Nutrition/Amino Acids/Dextrose/ Fat Emulsion Intravenous 1,200 ml @ 50 mls/hr TPN CONT IV Last administered on 07/10/19at 23:29; Start 07/10/19 at 22:00; Stop 07/11/19 at 21:59; Status DC Sodium Chloride 1,000 ml @ 1,000 mls/hr Q1H PRN IV hypotension; Start 07/11/19 at 07:28; Stop 07/11/19 at 13:27; Status DC Albumin Human 200 ml @ 200 mls/hr 1X ONCE IV Last administered on 07/11/19at 08:51; Start 07/11/19 at 07:30; Stop 07/11/19 at 08:29; Status DC Diphenhydramine HCl (Benadryl) 25 mg 1X PRN PRN IV ITCHING; Start 07/11/19 at 07:30; Stop 07/12/19 at 07:29; Status DC Diphenhydramine HCl (Benadryl) 25 mg 1X PRN PRN IV ITCHING; Start 07/11/19 at 07:30; Stop 07/12/19 at 07:29; Status DC Sodium Chloride 1,000 ml @ 400 mls/hr Q2H30M PRN IV PATENCY; Start 07/11/19 at 07:28; Stop 07/11/19 at 19:27; Status DC Info (PHARMACY MONITORING -- do not chart) 1 each PRN DAILY PRN MC SEE COMMENT S; Start 07/11/19 at 07:30; Stop 07/22/19 at 13:01; Status DC Metronidazole 100 ml @ 100 mls/hr Q6HRS IV Last administered on 07/27/19at 06:26; Start 07/11/19 at 08:30; Stop 07/27/19 at 09:58; Status DC Micafungin Sodium 100 mg/Dextrose 100 ml @ 100 mls/hr Q24H IV Last administered on 08/18/19at 08:18; Start 07/11/19 at 09:00; Stop 08/18/19 at 20:58; Status DC Propofol 0 ml @ As Directed STK-MED ONCE IV ; Start 07/11/19 at 07:53; Stop 07/11/19 at 07:53; Status DC Etomidate (Amidate) 20 mg STK-MED ONCE IV ; Start 07/11/19 at 07:53; Stop 07/11/19 at 07:54; Status DC Midazolam HCl (Versed) 5 mg STK-MED ONCE .ROUTE ; Start 07/11/19 at 07:57; Stop 07/11/19 at 07:57; Status DC Fentanyl Citrate 30 ml @ 0 mls/hr CONT PRN IV SEE PROTOCOL Last administered on 08/05/19at 06:12; Start 07/11/19 at 08:15; Stop 08/05/19 at 09:19; Status DC Artificial Tears (Artificial Tears) 1 drop PRN Q1HR PRN OU DRY EYE, 1st choice; Start 07/11/19 at 08:15; Stop 08/17/19 at 05:31; Status DC Midazolam HCl 50 mg/Sodium Chloride 50 ml @ 0 mls/hr CONT PRN IV SEE PROTOCOL Last administered on 07/14/19at 22:39; Start 07/11/19 at 08:15; Stop 07/16/19 at 15:59; Status DC Etomidate (Amidate) 8 mg 1X ONCE IV Last administered on 07/11/19at 08:33; Start 07/11/19 at 08:30; Stop 07/11/19 at 08:31; Status DC Succinylcholine Chloride (Anectine) 120 mg 1X ONCE IV Last administered on 07/11/19at 08:34; Start 07/11/19 at 08:30; Stop 07/11/19 at 08:31; Status DC Midazolam HCl (Versed) 5 mg 1X ONCE IV ; Start 07/11/19 at 08:30; Stop 07/11/19 at 08:31; Status DC Potassium Chloride 15 meq/ Bicarbonate Dialysis Soln w/ out KCl 5,007.5 ml @ 1,000 mls/ hr Q5H1M IV Last administered on 07/12/19at 11:11; Start 07/11/19 at 12:00; Stop 07/12/19 at 11:15; Status DC Potassium Chloride 15 meq/ Bicarbonate Dialysis Soln w/ out KCl 5,007.5 ml @ 1,000 mls/ hr Q5H1M IV Last administered on 07/12/19at 11:12; Start 07/11/19 at 12:00; Stop 07/12/19 at 11:17; Status DC Potassium Chloride 15 meq/ Bicarbonate Dialysis Soln w/ out KCl 5,007.5 ml @ 1,000 mls/ hr Q5H1M IV Last administered on 07/12/19at 11:11; Start 07/11/19 at 12:00; Stop 07/12/19 at 11:19; Status DC Sodium Chloride 90 meq/Potassium Chloride 15 meq/ Potassium Phosphate 10 mmol/ Magnesium Sulfate 10 meq/Calcium Gluconate 20 meq/ Multivitamins 10 ml/Chromium/ Copper/Manganese/ Seleni/Zn 0.5 ml/ Total Parenteral Nutrition/Amino Acids/Dextrose/ Fat Emulsion Intravenous 1,400 ml @ 58.333 mls/ hr TPN CONT IV Last administered on 07/11/19at 21:42; Start 07/11/19 at 22:00; Stop 07/12/19 at 21:59; Status DC Heparin Sodium (Porcine) (Heparin Sodium) 5,000 unit Q8HRS SQ Last administered on 07/16/19at 05:55; Start 07/11/19 at 15:00; Stop 07/16/19 at 13:28; Status DC Meropenem 500 mg/ Sodium Chloride 50 ml @ 100 mls/hr Q6HRS IV Last administered on 07/13/19at 06:00; Start 07/12/19 at 09:00; Stop 07/13/19 at 07:29; Status DC Potassium Phosphate 20 mmol/ Sodium Chloride 106.6667 ml @ 51.667 m... 1X ONCE IV Last administered on 07/12/19at 11:22; Start 07/12/19 at 10:15; Stop 07/12/19 at 12:18; Status DC Acetaminophen (Tylenol Supp) 650 mg PRN Q6HRS PRN [place] MILD PAIN / TEMP > 100.3'F Last administered on 10/17/19at 18:16; Start 07/12/19 at 10:30 Potassium Chloride/Water 100 ml @ 100 mls/hr Q1H IV Last administered on 07/12/19at 12:12; Start 07/12/19 at 11:00; Stop 07/12/19 at 12:59; Status DC Potassium Chloride 20 meq/ Bicarbonate Dialysis Soln w/ out KCl 5,010 ml @ 1,000 mls/hr Q5H1M IV Last administered on 07/13/19at 08:48; Start 07/12/19 at 12:00; Stop 07/13/19 at 13:03; Status DC Potassium Chloride 20 meq/ Bicarbonate Dialysis Soln w/ out KCl 5,010 ml @ 1,000 mls/hr Q5H1M IV Last administered on 07/17/19at 14:52; Start 07/12/19 at 11:30; Stop 07/17/19 at 19:59; Status DC Potassium Chloride 20 meq/ Bicarbonate Dialysis Soln w/ out KCl 5,010 ml @ 1,000 mls/hr Q5H1M IV Last administered on 07/17/19at 14:53; Start 07/12/19 at 11:30; Stop 07/17/19 at 19:59; Status DC Sodium Chloride 90 meq/Potassium Chloride 15 meq/ Potassium Phosphate 15 mmol/ Magnesium Sulfate 10 meq/Calcium Gluconate 15 meq/ Multivitamins 10 ml/Chromium/ Copper/Manganese/ Seleni/Zn 0.5 ml/ Total Parenteral Nutrition/Amino Acids/Dextrose/ Fat Emulsion Intravenous 1,400 ml @ 58.333 mls/ hr TPN CONT IV Last administered on 07/12/19at 22:17; Start 07/12/19 at 22:00; Stop 07/13/19 at 21:59; Status DC Cefepime HCl (Maxipime) 2 gm Q12HR IVP Last administered on 07/26/19at 20:56; Start 07/13/19 at 09:00; Stop 07/27/19 at 09:58; Status DC Daptomycin 500 mg/ Sodium Chloride 50 ml @ 100 mls/hr Q48H IV Last administered on 07/29/19at 09:57; Start 07/13/19 at 08:30; Stop 07/29/19 at 10:07; Status DC Lidocaine HCl (Buffered Lidocaine 1%) 3 ml 1X ONCE INJ Last administered on 07/13/19at 10:27; Start 07/13/19 at 10:30; Stop 07/13/19 at 10:31; Status DC Potassium Phosphate 20 mmol/ Sodium Chloride 106.6667 ml @ 51.667 m... 1X ONCE IV Last administered on 07/13/19at 12:51; Start 07/13/19 at 13:00; Stop 07/13/19 at 15:03; Status DC Sodium Chloride 90 meq/Potassium Chloride 15 meq/ Potassium Phosphate 18 mmol/ Magnesium Sulfate 8 meq/Calcium Gluconate 15 meq/ Multivitamins 10 ml/Chromium/ Copper/Manganese/ Seleni/Zn 0.5 ml/ Total Parenteral Nutrition/Amino Acids/Dextrose/ Fat Emulsion Intravenous 1,400 ml @ 58.333 mls/ hr TPN CONT IV Last administered on 07/13/19at 22:16; Start 07/13/19 at 22:00; Stop 07/14/19 at 21:59; Status DC Potassium Chloride 20 meq/ Bicarbonate Dialysis Soln w/ out KCl 5,010 ml @ 1,000 mls/hr Q5H1M IV Last administered on 07/17/19at 14:54; Start 07/13/19 at 16:00; Stop 07/17/19 at 19:59; Status DC Multi-Ingred Cream/Lotion/Oil/ Oint (Artificial Tears Eye Ointment) 1 ramu PRN Q1HR PRN OU DRY EYE, 2nd choice Last administered on 08/01/19at 08:19; Start 07/13/19 at 17:30; Stop 09/21/19 at 14:39; Status DC Sodium Chloride 90 meq/Potassium Chloride 15 meq/ Potassium Phosphate 18 mmol/ Magnesium Sulfate 8 meq/Calcium Gluconate 15 meq/ Multivitamins 10 ml/Chromium/ Copper/Manganese/ Seleni/Zn 0.5 ml/ Total Parenteral Nutrition/Amino Acids/Dextrose/ Fat Emulsion Intravenous 1,400 ml @ 58.333 mls/ hr TPN CONT IV Last administered on 07/14/19at 22:00; Start 07/14/19 at 22:00; Stop 07/15/19 at 21:59; Status DC Albumin Human 500 ml @ 125 mls/hr 1X ONCE IV ; Start 07/14/19 at 14:15; Stop 07/14/19 at 18:14; Status DC Sodium Chloride 90 meq/Potassium Chloride 15 meq/ Potassium Phosphate 18 mmol/ Magnesium Sulfate 8 meq/Calcium Gluconate 15 meq/ Multivitamins 10 ml/Chromium/ Copper/Manganese/ Seleni/Zn 0.5 ml/ Insulin Human Regular 10 unit/ Total Parenteral Nutrition/Amino Acids/Dextrose/ Fat Emulsion Intravenous 1,400 ml @ 58.333 mls/ hr TPN CONT IV Last administered on 07/15/19at 21:43; Start 07/15/19 at 22:00; Stop 07/16/19 at 21:59; Status DC Lidocaine HCl (Buffered Lidocaine 1%) 3 ml STK-MED ONCE .ROUTE ; Start 07/13/19 at 10:00; Stop 07/15/19 at 13:57; Status DC Midazolam HCl 100 mg/Sodium Chloride 100 ml @ 7 mls/hr CONT PRN IV SEE PROTOCOL Last administered on 07/27/19at 15:35; Start 07/16/19 at 16:00; Stop 09/21/19 at 14:38; Status DC Sodium Chloride 90 meq/Potassium Chloride 15 meq/ Potassium Phosphate 18 mmol/ Magnesium Sulfate 8 meq/Calcium Gluconate 15 meq/ Multivitamins 10 ml/Chromium/ Copper/Manganese/ Seleni/Zn 0.5 ml/ Insulin Human Regular 15 unit/ Total Parenteral Nutrition/Amino Acids/Dextrose/ Fat Emulsion Intravenous 1,400 ml @ 58.333 mls/ hr TPN CONT IV Last administered on 07/16/19at 20:34; Start 07/16/19 at 22:00; Stop 07/17/19 at 21:59; Status DC Info (Icu Electrolyte Protocol) 1 ea CONT PRN PRN MC PER PROTOCOL; Start 07/17/19 at 13:15 Sodium Chloride 90 meq/Potassium Chloride 15 meq/ Potassium Phosphate 18 mmol/ Magnesium Sulfate 8 meq/Calcium Gluconate 15 meq/ Multivitamins 10 ml/Chromium/ Copper/Manganese/ Seleni/Zn 0.5 ml/ Insulin Human Regular 15 unit/ Total Parenteral Nutrition/Amino Acids/Dextrose/ Fat Emulsion Intravenous 1,400 ml @ 58.333 mls/ hr TPN CONT IV Last administered on 07/17/19at 22:05; Start 07/17/19 at 22:00; Stop 07/18/19 at 21:59; Status DC Potassium Chloride 15 meq/ Bicarbonate Dialysis Soln w/ out KCl 5,007.5 ml @ 1,000 mls/ hr Q5H1M IV Last administered on 07/20/19at 18:14; Start 07/17/19 at 20:00; Stop 07/21/19 at 13:08; Status DC Potassium Chloride 15 meq/ Bicarbonate Dialysis Soln w/ out KCl 5,007.5 ml @ 1,000 mls/ hr Q5H1M IV Last administered on 07/20/19at 18:14; Start 07/17/19 at 20:00; Stop 07/21/19 at 13:08; Status DC Potassium Chloride 15 meq/ Bicarbonate Dialysis Soln w/ out KCl 5,007.5 ml @ 1,000 mls/ hr Q5H1M IV Last administered on 07/20/19at 18:14; Start 07/17/19 at 20:00; Stop 07/21/19 at 13:08; Status DC Iohexol (Omnipaque 240 Mg/ml) 30 ml 1X ONCE PO Last administered on 07/18/19at 11:30; Start 07/18/19 at 11:30; Stop 07/18/19 at 11:33; Status DC Info (CONTRAST GIVEN -- Rx MONITORING) 1 each PRN DAILY PRN MC SEE COMMENTS; Start 07/18/19 at 11:45; Stop 07/20/19 at 11:44; Status DC Sodium Chloride 90 meq/Potassium Chloride 15 meq/ Potassium Phosphate 18 mmol/ Magnesium Sulfate 8 meq/Calcium Gluconate 15 meq/ Multivitamins 10 ml/Chromium/ Copper/Manganese/ Seleni/Zn 0.5 ml/ Insulin Human Regular 15 unit/ Total Parenteral Nutrition/Amino Acids/Dextrose/ Fat Emulsion Intravenous 1,400 ml @ 58.333 mls/ hr TPN CONT IV Last administered on 07/18/19at 21:47; Start 07/18/19 at 22:00; Stop 07/19/19 at 21:59; Status DC Sodium Chloride 90 meq/Potassium Chloride 15 meq/ Potassium Phosphate 18 mmol/ Magnesium Sulfate 8 meq/Calcium Gluconate 15 meq/ Multivitamins 10 ml/Chromium/ Copper/Manganese/ Seleni/Zn 0.5 ml/ Insulin Human Regular 20 unit/ Total Parenteral Nutrition/Amino Acids/Dextrose/ Fat Emulsion Intravenous 1,400 ml @ 58.333 mls/ hr TPN CONT IV Last administered on 07/19/19at 21:36; Start 07/19/19 at 22:00; Stop 07/20/19 at 21:59; Status DC Alteplase, Recombinant (Cathflo For Central Catheter Clearance) 1 mg 1X ONCE INT CAT Last administered on 07/19/19at 20:03; Start 07/19/19 at 19:30; Stop 07/19/19 at 19:46; Status DC Alteplase, Recombinant (Cathflo For Central Catheter Clearance) 1 mg 1X ONCE INT CAT Last administered on 07/19/19at 22:05; Start 07/19/19 at 22:00; Stop 07/19/19 at 22:01; Status DC Sodium Chloride 90 meq/Potassium Chloride 15 meq/ Potassium Phosphate 18 mmol/ Magnesium Sulfate 8 meq/Calcium Gluconate 15 meq/ Multivitamins 10 ml/Chromium/ Copper/Manganese/ Seleni/Zn 0.5 ml/ Insulin Human Regular 20 unit/ Total Parenteral Nutrition/Amino Acids/Dextrose/ Fat Emulsion Intravenous 1,400 ml @ 58.333 mls/ hr TPN CONT IV Last administered on 07/20/19at 21:30; Start 07/20/19 at 22:00; Stop 07/21/19 at 21:59; Status DC Dexmedetomidine HCl 400 mcg/ Sodium Chloride 100 ml @ 0 mls/hr CONT PRN IV ANXIETY / AGITATION Last administered on 09/17/19at 12:57; Start 07/21/19 at 08:15; Stop 09/17/19 at 18:31; Status DC Sodium Chloride 500 ml @ 500 mls/hr 1X PRN PRN IV ELEVATED BP, SEE COMMENTS; Start 07/21/19 at 08:15 Atropine Sulfate (ATROPINE 0.5mg SYRINGE) 0.5 mg PRN Q5MIN PRN IV SEE COMMENTS; Start 07/21/19 at 08:15 Furosemide (Lasix) 20 mg 1X ONCE IVP Last administered on 07/21/19at 08:19; Start 07/21/19 at 08:15; Stop 07/21/19 at 08:16; Status DC Lidocaine HCl (Buffered Lidocaine 1%) 3 ml STK-MED ONCE .ROUTE ; Start 07/21/19 at 08:39; Stop 07/21/19 at 08:39; Status DC Lidocaine HCl (Buffered Lidocaine 1%) 6 ml 1X ONCE INJ Last administered on 07/21/19at 09:05; Start 07/21/19 at 09:00; Stop 07/21/19 at 09:06; Status DC Sodium Chloride 90 meq/Potassium Chloride 15 meq/ Potassium Phosphate 18 mmol/ Magnesium Sulfate 8 meq/Calcium Gluconate 15 meq/ Multivitamins 10 ml/Chromium/ Copper/Manganese/ Seleni/Zn 0.5 ml/ Insulin Human Regular 20 unit/ Total Janett ral Nutrition/Amino Acids/Dextrose/ Fat Emulsion Intravenous 1,400 ml @ 58.333 mls/ hr TPN CONT IV Last administered on 07/21/19at 22:45; Start 07/21/19 at 22:00; Stop 07/22/19 at 21:59; Status DC Sodium Chloride 1,000 ml @ 1,000 mls/hr Q1H PRN IV hypotension; Start 07/22/19 at 07:30; Stop 07/22/19 at 13:29; Status DC Albumin Human 200 ml @ 200 mls/hr 1X PRN PRN IV Hypotension Last administered on 07/22/19at 09:36; Start 07/22/19 at 07:30; Stop 07/22/19 at 13:29; Status DC Sodium Chloride (Normal Saline Flush) 10 ml 1X PRN PRN IV AP catheter pack; Start 07/22/19 at 07:30; Stop 07/22/19 at 21:29; Status DC Sodium Chloride (Normal Saline Flush) 10 ml 1X PRN PRN 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; Start 07/22/19 at 07:30; Stop 07/23/19 at 07:29; Status DC Sodium Chloride 1,000 ml @ 400 mls/hr Q2H30M PRN IV PATENCY; Start 07/22/19 at 07:30; Stop 07/22/19 at 19:29; Status DC Info (PHARMACY MONITORING -- do not chart) 1 each PRN DAILY PRN MC SEE COMMENTS; Start 07/22/19 at 07:30; Stop 07/22/19 at 13:02; Status DC Info (PHARMACY MONITORING -- do not chart) 1 each PRN DAILY PRN MC SEE COMMENTS; Start 07/22/19 at 07:30; Stop 07/24/19 at 12:45; Status DC Sodium Chloride 90 meq/Potassium Chloride 15 meq/ Potassium Phosphate 10 mmol/ Magnesium Sulfate 8 meq/Calcium Gluconate 15 meq/ Multivitamins 10 ml/Chromium/ Copper/Manganese/ Seleni/Zn 0.5 ml/ Insulin Human Regular 25 unit/ Total Parenteral Nutrition/Amino Acids/Dextrose/ Fat Emulsion Intravenous 1,400 ml @ 58.333 mls/ hr TPN CONT IV Last administered on 07/22/19at 22:19; Start 07/22/19 at 22:00; Stop 07/23/19 at 21:59; Status DC Heparin Sodium (Porcine) (Heparin Sodium) 5,000 unit Q12HR SQ Last administered on 08/14/19at 08:59; Start 07/22/19 at 21:00; Stop 08/14/19 at 10:05; Status DC Ondansetron HCl (Zofran) 4 mg PRN Q6HRS PRN IV NAUSEA/VOMITING; Start 07/25/19 at 07:00; Stop 07/26/19 at 06:59; Status DC Fentanyl Citrate (Fentanyl 2ml Vial) 25 mcg PRN Q5MIN PRN IV MILD PAIN 1-3; Start 07/25/19 at 07:00; Stop 07/26/19 at 06:59; Status DC Fentanyl Citrate (Fentanyl 2ml Vial) 50 mcg PRN Q5MIN PRN IV MODERATE TO SEVERE PAIN; Start 07/25/19 at 07:00; Stop 07/26/19 at 06:59; Status DC Ringer's Solution 1,000 ml @ 30 mls/hr Q24H IV ; Start 07/25/19 at 07:00; Stop 07/25/19 at 18:59; Status DC Lidocaine HCl (Xylocaine-Mpf 1% 2ml Vial) 2 ml PRN 1X PRN ID PRIOR TO IV START; Start 07/25/19 at 07:00; Stop 07/26/19 at 06:59; Status DC Prochlorperazine Edisylate (Compazine) 5 mg PACU PRN PRN IV NAUSEA, MRX1; Start 07/25/19 at 07:00; Stop 07/26/19 at 06:59; Status DC Sodium Chloride 1,000 ml @ 1,000 mls/hr Q1H PRN IV hypotension; Start 07/23/19 at 09:10; Stop 07/23/19 at 15:09; Status DC Albumin Human 200 ml @ 200 mls/hr 1X PRN PRN IV Hypotension Last administered on 07/23/19at 10:10; Start 07/23/19 at 09:15; Stop 07/23/19 at 15:14; Status DC Sodium Chloride 1,000 ml @ 400 mls/hr Q2H30M PRN IV PATENCY; Start 07/23/19 at 09:10; Stop 07/23/19 at 21:09; Status DC Info (PHARMACY MONITORING -- do not chart) 1 each PRN DAILY PRN MC SEE COMMENTS; Start 07/23/19 at 09:15; Stop 07/24/19 at 12:45; Status DC Info (PHARMACY MONITORING -- do not chart) 1 each PRN DAILY PRN MC SEE COMMENTS; Start 07/23/19 at 09:15; Stop 07/24/19 at 12:45; Status DC Sodium Chloride 90 meq/Potassium Chloride 15 meq/ Potassium Phosphate 10 mmol/ Magnesium Sulfate 8 meq/Calcium Gluconate 15 meq/ Multivitamins 10 ml/Chromium/ Copper/Manganese/ Seleni/Zn 0.5 ml/ Insulin Human Regular 25 unit/ Total Parenteral Nutrition/Amino Acids/Dextrose/ Fat Emulsion Intravenous 1,400 ml @ 58.333 mls/ hr TPN CONT IV Last administered on 07/23/19at 22:10; Start 07/23/19 at 22:00; Stop 07/24/19 at 21:59; Status DC Magnesium Sulfate 50 ml @ 25 mls/hr PRN DAILY PRN IV for Mag < 1.7 on am labs Last administered on 10/06/19at 10:57; Start 07/24/19 at 09:15 Sodium Chloride 90 meq/Potassium Chloride 15 meq/ Potassium Phosphate 10 mmol/ Magnesium Sulfate 8 meq/Calcium Gluconate 15 meq/ Multivitamins 10 ml/Chromium/ Copper/Manganese/ Seleni/Zn 0.5 ml/ Insulin Human Regular 25 unit/ Total Parenteral Nutrition/Amino Acids/Dextrose/ Fat Emulsion Intravenous 1,400 ml @ 58.333 mls/ hr TPN CONT IV Last administered on 07/24/19at 21:20; Start 07/24/19 at 22:00; Stop 07/25/19 at 21:59; Status DC Sodium Chloride 1,000 ml @ 1,000 mls/hr Q1H PRN IV hypotension; Start 07/24/19 at 12:23; Stop 07/24/19 at 18:22; Status DC Albumin Human 200 ml @ 200 mls/hr 1X ONCE IV Last administered on 07/24/19at 13:34; Start 07/24/19 at 12:30; Stop 07/24/19 at 13:29; Status DC Diphenhydramine HCl (Benadryl) 25 mg 1X PRN PRN IV ITCHING; Start 07/24/19 at 12:30; Stop 07/25/19 at 12:29; Status DC Diphenhydramine HCl (Benadryl) 25 mg 1X PRN PRN IV ITCHING; Start 07/24/19 at 12:30; Stop 07/25/19 at 12:29; Status DC Info (PHARMACY MONITORING -- do not chart) 1 each PRN DAILY PRN MC SEE COMMENTS; Start 07/24/19 at 12:30; Status Cancel Bupivacaine HCl/ Epinephrine Bitart (Sensorcain-Epi 0.5%-1:[id number] Mpf) 30 ml STK-MED ONCE .ROUTE Last administered on 07/25/19at 11:44; Start 07/25/19 at 11:00; Stop 07/25/19 at 11:01; Status DC Cellulose (Surgicel Fibrillar 1x2) 1 each STK-MED ONCE .ROUTE ; Start 07/25/19 at 11:00; Stop 07/25/19 at 11:01; Status DC Sodium Chloride 90 meq/Potassium Chloride 15 meq/ Potassium Phosphate 10 mmol/ Magnesium Sulfate 12 meq/Calcium Gluconate 15 meq/ Multivitamins 10 ml/Chromium/ Copper/Manganese/ Seleni/Zn 0.5 ml/ Insulin Human Regular 25 unit/ Total Parenteral Nutrition/Amino Acids/Dextrose/ Fat Emulsion Intravenous 1,400 ml @ 58.333 mls/ hr TPN CONT IV Last administered on 07/25/19at 22:24; Start 07/25/19 at 22:00; Stop 07/26/19 at 21:59; Status DC Propofol 20 ml @ As Directed STK-MED ONCE IV ; Start 07/25/19 at 11:07; Stop 07/25/19 at 11:07; Status DC Cellulose (Surgicel Hemostat 4x8) 1 each STK-MED ONCE .ROUTE Last administered on 07/25/19at 11:44; Start 07/25/19 at 11:55; Stop 07/25/19 at 11:56; Status DC Sevoflurane (Ultane) 60 ml STK-MED ONCE IH ; Start 07/25/19 at 12:46; Stop 07/25/19 at 12:46; Status DC Sodium Chloride 1,000 ml @ 1,000 mls/hr Q1H PRN IV hypotension; Start 07/25/19 at 13:51; Stop 07/25/19 at 19:50; Status DC Albumin Human 200 ml @ 200 mls/hr 1X PRN PRN IV Hypotension Last administered on 07/25/19at 14:51; Start 07/25/19 at 14:00; Stop 07/25/19 at 19:59; Status DC Diphenhydramine HCl (Benadryl) 25 mg 1X PRN PRN IV ITCHING; Start 07/25/19 at 14:00; Stop 07/26/19 at 13:59; Status DC Diphenhydramine HCl (Benadryl) 25 mg 1X PRN PRN IV ITCHING; Start 07/25/19 at 14:00; Stop 07/26/19 at 13:59; Status DC Sodium Chloride 1,000 ml @ 400 mls/hr Q2H30M PRN IV PATENCY; Start 07/25/19 at 13:51; Stop 07/26/19 at 01:50; Status DC Info (PHARMACY MONITORING -- do not chart) 1 each PRN DAILY PRN MC SEE COMMENTS; Start 07/25/19 at 14:00; Stop 07/28/19 at 08:16; Status DC Heparin Sodium (Porcine) (Hep Lock Adult) 500 unit STK-MED ONCE IVP ; Start 07/26/19 at 09:29; Stop 07/26/19 at 09:30; Status DC Sodium Chloride 1,000 ml @ 1,000 mls/hr Q1H PRN IV hypotension; Start 07/26/19 at 10:43; Stop 07/26/19 at 16:42; Status DC Sodium Chloride 1,000 ml @ 400 mls/hr Q2H30M PRN IV PATENCY; Start 07/26/19 at 10:43; Stop 07/26/19 at 22:42; Status DC Info (PHARMACY MONITORING -- do not chart) 1 each PRN DAILY PRN MC SEE COMMENTS; Start 07/26/19 at 10:45; Status UNV Info (PHARMACY MONITORING -- do not chart) 1 each PRN DAILY PRN MC SEE COMMENTS; Start 07/26/19 at 10:45; Status UNV Sodium Chloride 90 meq/Potassium Chloride 15 meq/ Magnesium Sulfate 12 meq/Calc ium Gluconate 15 meq/ Multivitamins 10 ml/Chromium/ Copper/Manganese/ Seleni/Zn 0.5 ml/ Insulin Human Regular 25 unit/ Total Parenteral Nutrition/Amino Acids/Dextrose/ Fat Emulsion Intravenous 1,400 ml @ 58.333 mls/ hr TPN CONT IV Last administered on 07/26/19at 22:13; Start 07/26/19 at 22:00; Stop 07/27/19 at 21:59; Status DC Sodium Chloride 1,000 ml @ 1,000 mls/hr Q1H PRN IV hypotension; Start 07/27/19 at 07:50; Stop 07/27/19 at 13:49; Status DC Albumin Human 200 ml @ 200 mls/hr 1X ONCE IV ; Start 07/27/19 at 08:00; Stop 07/27/19 at 08:53; Status DC Diphenhydramine HCl (Benadryl) 25 mg 1X PRN PRN IV ITCHING; Start 07/27/19 at 08:00; Stop 07/28/19 at 07:59; Status DC Diphenhydramine HCl (Benadryl) 25 mg 1X PRN PRN IV ITCHING; Start 07/27/19 at 08:00; Stop 07/28/19 at 07:59; Status DC Info (PHARMACY MONITORING -- do not chart) 1 each PRN DAILY PRN MC SEE COMMENTS; Start 07/27/19 at 08:00; Stop 07/28/19 at 08:16; Status DC Albumin Human 50 ml @ 50 mls/hr 1X ONCE IV ; Start 07/27/19 at 08:53; Stop 07/27/19 at 08:56; Status DC Albumin Human 200 ml @ 50 mls/hr PRN 1X PRN IV HYPOTENSION Last administered on 08/02/19at 11:54; Start 07/27/19 at 09:00; Stop 09/08/19 at 11:14; Status DC Meropenem 500 mg/ Sodium Chloride 50 ml @ 100 mls/hr Q12H IV Last administered on 08/16/19at 10:45; Start 07/27/19 at 10:00; Stop 08/16/19 at 12:37; Status DC Sodium Chloride 90 meq/Magnesium Sulfate 12 meq/ Calcium Gluconate 15 meq/ Multivitamins 10 ml/Chromium/ Copper/Manganese/ Seleni/Zn 0.5 ml/ Insulin Human Regular 25 unit/ Total Parenteral Nutrition/Amino Acids/Dextrose/ Fat Emulsion Intravenous 1,400 ml @ 58.333 mls/ hr TPN CONT IV Last administered on 07/27/19at 21:41; Start 07/27/19 at 22:00; Stop 07/28/19 at 21:59; Status DC Sodium Chloride 1,000 ml @ 1,000 mls/hr Q1H PRN IV hypotension; Start 07/28/19 at 07:58; Stop 07/28/19 at 13:57; Status DC Albumin Human 200 ml @ 200 mls/hr 1X PRN PRN IV Hypotension Last administered on 07/28/19at 09:30; Start 07/28/19 at 08:00; Stop 07/28/19 at 13:59; Status DC Sodium Chloride 1,000 ml @ 400 mls/hr Q2H30M PRN IV PATENCY; Start 07/28/19 at 07:58; Stop 07/28/19 at 19:57; Status DC Info (PHARMACY MONITORING -- do not chart) 1 each PRN DAILY PRN MC SEE COMMENTS; Start 07/28/19 at 08:00; Status Cancel Info (PHARMACY MONITORING -- do not chart) 1 each PRN DAILY PRN MC SEE COMMENTS; Start 07/28/19 at 08:15; Status UNV Sodium Chloride 90 meq/Potassium Phosphate 5 mmol/ Magnesium Sulfate 12 meq/Calcium Gluconate 15 meq/ Multivitamins 10 ml/Chromium/ Copper/Manganese/ Seleni/Zn 0.5 ml/ Insulin Human Regular 30 unit/ Total Parenteral Nutrition/Amino Acids/Dextrose/ Fat Emulsion Intravenous 1,400 ml @ 58.333 mls/ hr TPN CONT IV Last administered on 07/28/19at 22:08; Start 07/28/19 at 22:00; Stop 07/29/19 at 21:59; Status DC Linezolid/Dextrose 300 ml @ 300 mls/hr Q12HR IV Last administered on 08/08/19at 20:40; Start 07/29/19 at 11:00; Stop 08/09/19 at 08:10; Status DC Sodium Chloride 90 meq/Potassium Phosphate 15 mmol/ Magnesium Sulfate 12 meq/Calcium Gluconate 15 meq/ Multivitamins 10 ml/Chromium/ Copper/Manganese/ Seleni/Zn 0.5 ml/ Insulin Human Regular 30 unit/ Total Parenteral Nutrition/Amino Acids/Dextrose/ Fat Emulsion Intravenous 1,400 ml @ 58.333 mls/ hr TPN CONT IV Last administered on 07/29/19at 21:49; Start 07/29/19 at 22:00; Stop 07/30/19 at 21:59; Status DC Sodium Chloride 90 meq/Potassium Phosphate 15 mmol/ Magnesium Sulfate 12 meq/Calcium Gluconate 15 meq/ Multivitamins 10 ml/Chromium/ Copper/Manganese/ Seleni/Zn 0.5 ml/ Insulin Human Regular 40 unit/ Total Parenteral Nutrition/Amino Acids/Dextrose/ Fat Emulsion Intravenous 1,400 ml @ 58.333 mls/ hr TPN CONT IV Last administered on 07/30/19at 21:21; Start 07/30/19 at 22:00; Stop 07/31/19 at 21:59; Status DC Sodium Chloride 1,000 ml @ 1,000 mls/hr Q1H PRN IV hypotension; Start 07/30/19 at 13:26; Stop 07/30/19 at 19:25; Status DC Albumin Human 200 ml @ 200 mls/hr 1X PRN PRN IV Hypotension Last administered on 07/30/19at 15:00; Start 07/30/19 at 13:30; Stop 07/30/19 at 19:29; Status DC Sodium Chloride (Normal Saline Flush) 10 ml 1X PRN PRN IV AP catheter pack; Start 07/30/19 at 13:30; Stop 07/31/19 at 13:29; Status DC Sodium Chloride (Normal Saline Flush) 10 ml 1X PRN PRN 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; Start 07/30/19 at 13:30; Stop 07/31/19 at 13:29; Status DC Sodium Chloride 1,000 ml @ 400 mls/hr Q2H30M PRN IV PATENCY; Start 07/30/19 at 13:26; Stop 07/31/19 at 01:25; Status DC Info (PHARMACY MONITORING -- do not chart) 1 each PRN DAILY PRN MC SEE COMMENTS; Start 07/30/19 at 13:30; Stop 07/30/19 at 13:33; Status DC Info (PHARMACY MONITORING -- do not chart) 1 each PRN DAILY PRN MC SEE COMMENTS; Start 07/30/19 at 13:30; Stop 07/30/19 at 13:34; Status DC Sodium Chloride 90 meq/Potassium Phosphate 19 mmol/ Magnesium Sulfate 12 meq/Calcium Gluconate 15 meq/ Multivitamins 10 ml/Chromium/ Copper/Manganese/ Seleni/Zn 0.5 ml/ Insulin Human Regular 40 unit/ Total Parenteral Nutrition/Amino Acids/Dextrose/ Fat Emulsion Intravenous 1,400 ml @ 58.333 mls/ hr TPN CONT IV Last administered on 07/31/19at 21:54; Start 07/31/19 at 22:00; Stop 08/01/19 at 21:59; Status DC Sodium Chloride 1,000 ml @ 1,000 mls/hr Q1H PRN IV hypotension; Start 08/01/19 at 09:35; Stop 08/01/19 at 15:34; Status DC Albumin Human 200 ml @ 200 mls/hr 1X PRN PRN IV Hypotension; Start 08/01/19 at 09:45; Stop 08/01/19 at 15:44; Status DC Diphenhydramine HCl (Benadryl) 25 mg 1X PRN PRN IV ITCHING; Start 08/01/19 at 09:45; Stop 08/02/19 at 09:44; Status DC Diphenhydramine HCl (Benadryl) 25 mg 1X PRN PRN IV ITCHING; Start 08/01/19 at 09:45; Stop 08/02/19 at 09:44; Status DC Sodium Chloride 1,000 ml @ 400 mls/hr Q2H30M PRN IV PATENCY; Start 08/01/19 at 09:35; Stop 08/01/19 at 21:34; Status DC Info (PHARMACY MONITORING -- do not chart) 1 each PRN DAILY PRN MC SEE COMMENTS; Start 08/01/19 at 09:45; Status Cancel Sodium Chloride 100 meq/Potassium Phosphate 19 mmol/ Magnesium Sulfate 12 meq/Calcium Gluconate 15 meq/ Multivitamins 10 ml/Chromium/ Copper/Manganese/ Seleni/Zn 0.5 ml/ Insulin Human Regular 40 unit/ Potassium Chloride 20 meq/ Total Parenteral Nutrition/Amino Acids/Dextrose/ Fat Emulsion Intravenous 1,400 ml @ 58.333 mls/ hr TPN CONT IV Last administered on 08/01/19at 22:02; Start 08/01/19 at 22:00; Stop 08/02/19 at 21:59; Status DC Furosemide (Lasix) 40 mg 1X ONCE IVP Last administered on 08/01/19at 14:39; Start 08/01/19 at 14:30; Stop 08/01/19 at 14:31; Status DC Metronidazole 100 ml @ 100 mls/hr Q8HRS IV Last administered on 08/09/19at 06:04; Start 08/02/19 at 10:00; Stop 08/09/19 at 08:10; Status DC Sodium Chloride 1,000 ml @ 1,000 mls/hr Q1H PRN IV hypotension; Start 08/02/19 at 08:00; Stop 08/02/19 at 13:59; Status DC Albumin Human 200 ml @ 200 mls/hr 1X PRN PRN IV Hypotension; Start 08/02/19 at 08:00; Stop 08/02/19 at 13:59; Status DC Sodium Chloride 1,000 ml @ 400 mls/hr Q2H30M PRN IV PATENCY; Start 08/02/19 at 08:00; Stop 08/02/19 at 19:59; Status DC Info (PHARMACY MONITORING -- do not chart) 1 each PRN DAILY PRN MC SEE C OMMENTS; Start 08/02/19 at 11:30; Status UNV Info (PHARMACY MONITORING -- do not chart) 1 each PRN DAILY PRN MC SEE COMMENTS; Start 08/02/19 at 11:30; Stop 08/04/19 at 12:13; Status DC Sodium Chloride 100 meq/Potassium Phosphate 19 mmol/ Magnesium Sulfate 12 meq/Calcium Gluconate 15 meq/ Multivitamins 10 ml/Chromium/ Copper/Manganese/ Seleni/Zn 0.5 ml/ Insulin Human Regular 40 unit/ Potassium Chloride 20 meq/ Total Parenteral Nutrition/Amino Acids/Dextrose/ Fat Emulsion Intravenous 1,400 ml @ 58.333 mls/ hr TPN CONT IV Last administered on 08/02/19at 21:52; Start 08/02/19 at 22:00; Stop 08/03/19 at 21:59; Status DC Sodium Chloride (Normal Saline Flush) 10 ml QSHIFT PRN IV AFTER MEDS AND BLOOD DRAWS; Start 08/02/19 at 15:00; Stop 08/30/19 at 11:27; Status DC Sodium Chloride (Normal Saline Flush) 10 ml PRN Q5MIN PRN IV AFTER MEDS AND BLOOD DRAWS; Start 08/02/19 at 15:00 Sodium Chloride (Normal Saline Flush) 20 ml PRN Q5MIN PRN IV AFTER MEDS AND BLOOD DRAWS; Start 08/02/19 at 15:00 Sodium Chloride 100 meq/Potassium Phosphate 19 mmol/ Magnesium Sulfate 12 meq/Calcium Gluconate 15 meq/ Multivitamins 10 ml/Chromium/ Copper/Manganese/ Seleni/Zn 0.5 ml/ Insulin Human Regular 40 unit/ Potassium Chloride 20 meq/ Total Parenteral Nutrition/Amino Acids/Dextrose/ Fat Emulsion Intravenous 1,400 ml @ 58.333 mls/ hr TPN CONT IV Last administered on 08/03/19at 21:20; Start 08/03/19 at 22:00; Stop 08/04/19 at 21:59; Status DC Lidocaine HCl (Buffered Lidocaine 1%) 3 ml STK-MED ONCE .ROUTE ; Start 08/03/19 at 13:16; Stop 08/03/19 at 13:16; Status DC Lidocaine HCl (Buffered Lidocaine 1%) 6 ml 1X ONCE INJ Last administered on 08/03/19at 13:45; Start 08/03/19 at 13:30; Stop 08/03/19 at 13:31; Status DC Albumin Human 100 ml @ 100 mls/hr 1X ONCE IV Last administered on 08/03/19at 15:41; Start 08/03/19 at 15:00; Stop 08/03/19 at 15:59; Status DC Albumin Human 50 ml @ 50 mls/hr 1X ONCE IV Last administered on 08/03/19at 15:00; Start 08/03/19 at 15:00; Stop 08/03/19 at 15:59; Status DC Info (PHARMACY MONITORING -- do not chart) 1 each PRN DAILY PRN MC SEE COMMENTS; Start 08/04/19 at 11:30; Status Cancel Info (PHARMACY MONITORING -- do not chart) 1 each PRN DAILY PRN MC SEE COMMENTS; Start 08/04/19 at 11:30; Status UNV Sodium Chloride 100 meq/Potassium Phosphate 10 mmol/ Magnesium Sulfate 12 meq/Calcium Gluconate 15 meq/ Multivitamins 10 ml/Chromium/ Copper/Manganese/ Seleni/Zn 0.5 ml/ Insulin Human Regular 35 unit/ Potassium Chloride 20 meq/ Total Parenteral Nutrition/Amino Acids/Dextrose/ Fat Emulsion Intravenous 1,400 ml @ 58.333 mls/ hr TPN CONT IV Last administered on 08/04/19at 22:10; Start 08/04/19 at 22:00; Stop 08/05/19 at 21:59; Status DC Sodium Chloride 100 meq/Potassium Phosphate 5 mmol/ Magnesium Sulfate 12 meq/Calcium Gluconate 15 meq/ Multivitamins 10 ml/Chromium/ Copper/Manganese/ Seleni/Zn 0.5 ml/ Insulin Human Regular 35 unit/ Potassium Chloride 20 meq/ Total Parenteral Nutrition/Amino Acids/Dextrose/ Fat Emulsion Intravenous 1,400 ml @ 58.333 mls/ hr TPN CONT IV Last administered on 08/05/19at 22:59; Start 08/05/19 at 22:00; Stop 08/06/19 at 21:59; Status DC Sodium Chloride 1,000 ml @ 1,000 mls/hr Q1H PRN IV hypotension; Start 08/06/19 at 08:27; Stop 08/06/19 at 14:26; Status DC Albumin Human 200 ml @ 200 mls/hr 1X PRN PRN IV Hypotension Last administered on 08/06/19at 09:18; Start 08/06/19 at 08:30; Stop 08/06/19 at 14:29; Status DC Sodium Chloride 1,000 ml @ 400 mls/hr Q2H30M PRN IV PATENCY; Start 08/06/19 at 08:27; Stop 08/06/19 at 20:26; Status DC Info (PHARMACY MONITORING -- do not chart) 1 each PRN DAILY PRN MC SEE COMMENTS; Start 08/06/19 at 08:30; Status Cancel Info (PHARMACY MONITORING -- do not chart) 1 each PRN DAILY PRN MC SEE COMMENTS; Start 08/06/19 at 08:30; Stop 08/14/19 at 13:10; Status DC Sodium Chloride 100 meq/Potassium Chloride 40 meq/ Magnesium Sulfate 15 meq/Calcium Gluconate 15 meq/ Multivitamins 10 ml/Chromium/ Copper/Manganese/ Seleni/Zn 0.5 ml/ Insulin Human Regular 35 unit/ Total Parenteral Nutrition/Amino Acids/Dextrose/ Fat Emulsion Intravenous 1,400 ml @ 58.333 mls/ hr TPN CONT IV Last administered on 08/06/19at 22:00; Start 08/06/19 at 22:00; Stop 08/07/19 at 21:59; Status DC Potassium Chloride/Water 100 ml @ 100 mls/hr 1X ONCE IV Last administered on 08/06/19at 17:28; Start 08/06/19 at 14:45; Stop 08/06/19 at 15:44; Status DC Sodium Chloride 100 meq/Potassium Chloride 40 meq/ Magnesium Sulfate 15 meq/Calcium Gluconate 15 meq/ Multivitamins 10 ml/Chromium/ Copper/Manganese/ Seleni/Zn 0.5 ml/ Insulin Human Regular 35 unit/ Total Parenteral Nutrition/Amino Acids/Dextrose/ Fat Emulsion Intravenous 1,400 ml @ 58.333 mls/ hr TPN CONT IV Last administered on 08/07/19at 22:46; Start 08/07/19 at 22:00; Stop 08/08/19 at 21:59; Status DC Sodium Chloride 100 meq/Potassium Chloride 40 meq/ Magnesium Sulfate 20 meq/ Calcium Gluconate 15 meq/ Multivitamins 10 ml/Chromium/ Copper/Manganese/ Seleni/Zn 0.5 ml/ Insulin Human Regular 35 unit/ Total Parenteral Nutrition/Amino Acids/Dextrose/ Fat Emulsion Intravenous 1,400 ml @ 58.333 mls/ hr TPN CONT IV Last administered on 08/08/19at 22:31; Start 08/08/19 at 22:00; Stop 08/09/19 at 21:59; Status DC Fentanyl Citrate (Fentanyl 2ml Vial) 50 mcg PRN Q2HR PRN IVP PAIN Last administered on 08/15/19at 13:32; Start 08/08/19 at 21:00; Stop 08/16/19 at 12:53; Status DC Fentanyl Citrate (Fentanyl 2ml Vial) 25 mcg PRN Q2HR PRN IVP PAIN; Start 08/08/19 at 21:00; Stop 08/16/19 at 12:54; Status DC Enoxaparin Sodium (Lovenox 100mg Syringe) 100 mg Q12HR SQ ; Start 08/09/19 at 21:00; Status UNV Amino Acids/ Glycerin/ Electrolytes 1,000 ml @ 75 mls/hr [id number] IV ; Start 08/08/19 at 21:15; Status UNV Sodium Chloride 1,000 ml @ 1,000 mls/hr Q1H PRN IV hypotension; Start 08/09/19 at 07:56; Stop 08/09/19 at 13:55; Status DC Albumin Human 200 ml @ 200 mls/hr 1X PRN PRN IV Hypotension Last administered on 08/09/19at 08:40; Start 08/09/19 at 08:00; Stop 08/09/19 at 13:59; Status DC Sodium Chloride 1,000 ml @ 400 mls/hr Q2H30M PRN IV PATENCY; Start 08/09/19 at 07:56; Stop 08/09/19 at 19:55; Status DC Info (PHARMACY MONITORING -- do not chart) 1 each PRN DAILY PRN MC SEE COMMENTS; Start 08/09/19 at 08:00; Status UNV Info (PHARMACY MONITORING -- do not chart) 1 each PRN DAILY PRN MC SEE COMMENTS; Start 08/09/19 at 08:00; Status UNV Daptomycin 430 mg/ Sodium Chloride 50 ml @ 100 mls/hr Q24H IV Last administered on 08/09/19at 12:35; Start 08/09/19 at 09:00; Stop 08/09/19 at 12:49; Status DC Sodium Chloride 100 meq/Potassium Chloride 40 meq/ Magnesium Sulfate 20 meq/Calcium Gluconate 15 meq/ Multivitamins 10 ml/Chromium/ Copper/Manganese/ S thien/Zn 0.5 ml/ Insulin Human Regular 35 unit/ Total Parenteral Nutrition/Amino Acids/Dextrose/ Fat Emulsion Intravenous 1,400 ml @ 58.333 mls/ hr TPN CONT IV Last administered on 08/09/19at 21:26; Start 08/09/19 at 22:00; Stop 08/10/19 at 21:59; Status DC Daptomycin 430 mg/ Sodium Chloride 50 ml @ 100 mls/hr Q48H IV ; Start 08/11/19 at 09:00; Stop 08/10/19 at 11:55; Status DC Sodium Chloride 100 meq/Potassium Chloride 40 meq/ Magnesium Sulfate 20 meq/Calcium Gluconate 15 meq/ Multivitamins 10 ml/Chromium/ Copper/Manganese/ Seleni/Zn 0.5 ml/ Insulin Human Regular 35 unit/ Total Parenteral Nutrition/Amino Acids/Dextrose/ Fat Emulsion Intravenous 1,400 ml @ 58.333 mls/ hr TPN CONT IV Last administered on 08/10/19at 22:27; Start 08/10/19 at 22:00; Stop 08/11/19 at 21:59; Status DC Daptomycin 430 mg/ Sodium Chloride 50 ml @ 100 mls/hr Q24H IV Last administered on 08/12/19at 15:07; Start 08/10/19 at 13:00; Stop 08/13/19 at 13:15; Status DC Sodium Chloride 100 meq/Potassium Chloride 40 meq/ Magnesium Sulfate 20 meq/Calcium Gluconate 10 meq/ Multivitamins 10 ml/Chromium/ Copper/Manganese/ Seleni/Zn 0.5 ml/ Insulin Human Regular 35 unit/ Total Parenteral Nutrition/Amino Acids/Dextrose/ Fat Emulsion Intravenous 1,400 ml @ 58.333 mls/ hr TPN CONT IV Last administered on 08/12/19at 00:06; Start 08/11/19 at 22:00; Stop 08/12/19 at 21:59; Status DC Alteplase, Recombinant (Cathflo For Central Catheter Clearance) 1 mg 1X ONCE INT CAT Last administered on 08/12/19at 11:44; Start 08/12/19 at 10:45; Stop 08/12/19 at 10:46; Status DC Ondansetron HCl (Zofran) 4 mg PRN Q6HRS PRN IV NAUSEA/VOMITING; Start 08/15/19 at 07:00; Stop 08/16/19 at 06:59; Status DC Fentanyl Citrate (Fentanyl 2ml Vial) 25 mcg PRN Q5MIN PRN IV MILD PAIN 1-3; Start 08/15/19 at 07:00; Stop 08/16/19 at 06:59; Status DC Fentanyl Citrate (Fentanyl 2ml Vial) 50 mcg PRN Q5MIN PRN IV MODERATE TO SEVERE PAIN Last administered on 08/15/19at 10:17; Start 08/15/19 at 07:00; Stop 08/16/19 at 06:59; Status DC Ringer's Solution 1,000 ml @ 30 mls/hr Q24H IV ; Start 08/15/19 at 07:00; Stop 08/15/19 at 18:59; Status DC Lidocaine HCl (Xylocaine-Mpf 1% 2ml Vial) 2 ml PRN 1X PRN ID PRIOR TO IV START; Start 08/15/19 at 07:00; Stop 08/16/19 at 06:59; Status DC Prochlorperazine Edisylate (Compazine) 5 mg PACU PRN PRN IV NAUSEA, MRX1; Start 08/15/19 at 07:00; Stop 08/16/19 at 06:59; Status DC Sodium Acetate 50 meq/Potassium Acetate 55 meq/ Magnesium Sulfate 20 meq/Calcium Gluconate 10 meq/ Multivitamins 10 ml/Chromium/ Copper/Manganese/ Seleni/Zn 0.5 ml/ Insulin Human Regular 35 unit/ Total Parenteral Nutrition/Amino Acids/Dextrose/ Fat Emulsion Intravenous 1,400 ml @ 58.333 mls/ hr TPN CONT IV ; Start 08/12/19 at 22:00; Stop 08/12/19 at 14:15; Status DC Sodium Acetate 50 meq/Potassium Acetate 55 meq/ Magnesium Sulfate 20 meq/Calcium Gluconate 10 meq/ Multivitamins 10 ml/Chromium/ Copper/Manganese/ Seleni/Zn 0.5 ml/ Insulin Human Regular 35 unit/ Total Parenteral Nutrition/Amino Acids/Dextrose/ Fat Emulsion Intravenous 1,800 ml @ 75 mls/hr TPN CONT IV Last administered on 08/12/19at 22:38; Start 08/12/19 at 22:00; Stop 08/13/19 at 21:59; Status DC Sodium Chloride 1,000 ml @ 1,000 mls/hr Q1H PRN IV hypotension; Start 08/12/19 at 15:31; Stop 08/12/19 at 21:30; Status DC Diphenhydramine HCl (Benadryl) 25 mg 1X PRN PRN IV ITCHING; Start 08/12/19 at 15:45; Stop 08/13/19 at 15:44; Status DC Diphenhydramine HCl (Benadryl) 25 mg 1X PRN PRN IV ITCHING; Start 08/12/19 at 15:45; Stop 08/13/19 at 15:44; Status DC Sodium Chloride 1,000 ml @ 400 mls/hr Q2H30M PRN IV PATENCY; Start 08/12/19 at 15:31; Stop 08/13/19 at 03:30; Status DC Info (PHARMACY MONITORING -- do not chart) 1 each PRN DAILY PRN MC SEE COMMENTS; Start 08/12/19 at 15:45; Stop 09/13/19 at 14:14; Status DC Sodium Acetate 50 meq/Potassium Acetate 55 meq/ Magnesium Sulfate 20 meq/Calcium Gluconate 10 meq/ Multivitamins 10 ml/Chromium/ Copper/Manganese/ Seleni/Zn 0.5 ml/ Insulin Human Regular 35 unit/ Total Parenteral Nutrition/Amino Acids/Dextrose/ Fat Emulsion Intravenous 1,800 ml @ 75 mls/hr TPN CONT IV Last administered on 08/13/19at 22:03; Start 08/13/19 at 22:00; Stop 08/14/19 at 21:59; Status DC Daptomycin 430 mg/ Sodium Chloride 50 ml @ 100 mls/hr Q24H IV Last administered on 08/18/19at 13:00; Start 08/13/19 at 13:00; Stop 08/18/19 at 20:58; Status DC Heparin Sodium (Porcine) 1000 unit/Sodium Chloride 1,001 ml @ 1,001 mls/hr 1X ONCE IRR ; Start 08/15/19 at 06:00; Stop 08/15/19 at 06:59; Status DC Potassium Acetate 55 meq/Magnesium Sulfate 20 meq/ Calcium Gluconate 10 meq/ Multivitamins 10 ml/Chromium/ Copper/Manganese/ Seleni/Zn 0.5 ml/ Insulin Human Regular 35 unit/ Total Parenteral Nutrition/Amino Acids/Dextrose/ Fat Emulsion Intravenous 1,920 ml @ 80 mls/hr TPN CONT IV Last administered on 08/14/19at 22:10; Start 08/14/19 at 22:00; Stop 08/15/19 at 21:59; Status DC Dexamethasone Sodium Phosphate (Decadron) 4 mg STK-MED ONCE .ROUTE ; Start 08/15/19 at 10:56; Stop 08/15/19 at 10:57; Status DC Ondansetron HCl (Zofran) 4 mg STK-MED ONCE .ROUTE ; Start 08/15/19 at 10:56; Stop 08/15/19 at 10:57; Status DC Rocuronium [place]green (Zemuron) 50 mg STK-MED ONCE .ROUTE ; Start 08/15/19 at 10:56; Stop 08/15/19 at 10:57; Status DC Fentanyl Citrate (Fentanyl 2ml Vial) 100 mcg STK-MED ONCE .ROUTE ; Start 08/15/19 at 10:56; Stop 08/15/19 at 10:57; Status DC Bupivacaine HCl/ Epinephrine Bitart (Sensorcain-Epi 0.5%-1:844007 Mpf) 30 ml STK-MED ONCE .ROUTE Last administered on 08/15/19at 12:01; Start 08/15/19 at 10:58; Stop 08/15/19 at 10:58; Status DC Cellulose (Surgicel Hemostat 2x14) 1 each STK-MED ONCE .ROUTE ; Start 08/15/19 at 10:58; Stop 08/15/19 at 10:59; Status DC Iohexol (Omnipaque 300 Mg/ml) 50 ml STK-MED ONCE .ROUTE ; Start 08/15/19 at 10:58; Stop 08/15/19 at 10:59; Status DC Cellulose (Surgicel Hemostat 4x8) 1 each STK-MED ONCE .ROUTE ; Start 08/15/19 at 10:58; Stop 08/15/19 at 10:59; Status DC Bisacodyl (Dulcolax Supp) 10 mg STK-MED ONCE .ROUTE ; Start 08/15/19 at 10:59; Stop 08/15/19 at 10:59; Status DC Heparin Sodium (Porcine) 1000 unit/Sodium Chloride 1,001 ml @ 1,001 mls/hr 1X ONCE IRR ; Start 08/15/19 at 12:00; Stop 08/15/19 at 12:59; Status DC Propofol 20 ml @ As Directed STK-MED ONCE IV ; Start 08/15/19 at 11:05; Stop 08/15/19 at 11:05; Status DC Sevoflurane (Ultane) 90 ml STK-MED ONCE IH ; Start 08/15/19 at 11:05; Stop 08/15/19 at 11:05; Status DC Sevoflurane (Ultane) 60 ml STK-MED ONCE IH ; Start 08/15/19 at 12:26; Stop 08/15/19 at 12:27; Status DC Propofol 20 ml @ As Directed STK-MED ONCE IV ; Start 08/15/19 at 12:26; Stop 08/15/19 at 12:27; Status DC Phenylephrine HCl (PHENYLEPHRINE in 0.9% NACL PF) 1 mg STK-MED ONCE IV ; Start 08/15/19 at 12:34; Stop 08/15/19 at 12:34; Status DC Heparin Sodium (Porcine) (Heparin Sodium) 5,000 unit Q12HR SQ Last administered on 08/24/19at 20:57; Start 08/15/19 at 21:00; Stop 08/25/19 at 09:59; Status DC Sodium Chloride (Normal Saline Flush) 3 ml QSHIFT PRN IV AFTER MEDS AND BLOOD DRAWS; Start 08/15/19 at 13:45; Status Cancel Naloxone HCl (Narcan) 0.4 mg PRN Q2MIN PRN IV SEE INSTRUCTIONS Last administered on 09/24/19at 15:15; Start 08/15/19 at 13:45; Stop 10/19/19 at 16:00; Status DC Sodium Chloride 1,000 ml @ 25 mls/hr Q24H IV Last administered on 09/13/19at 13:37; Start 08/15/19 at 13:37; Stop 09/16/19 at 13:09; Status DC Naloxone HCl (Narcan) 0.4 mg PRN Q2MIN PRN IV SEE INSTRUCTIONS; Start 08/15/19 at 14:30; Status UNV Sodium Chloride 1,000 ml @ 25 mls/hr Q24H IV ; Start 08/15/19 at 14:30; Status UNV Hydromorphone HCl 30 ml @ 0 mls/hr CONT PRN PRN IV PER PROTOCOL Last administered on 08/20/19at 16:08; Start 08/15/19 at 14:30; Stop 08/22/19 at 08:55; Status DC Potassium Acetate 55 meq/Magnesium Sulfate 20 meq/ Calcium Gluconate 10 meq/ Multivitamins 10 ml/Chromium/ Copper/Manganese/ Seleni/Zn 0.5 ml/ Insulin Human Regular 35 unit/ Total Parenteral Nutrition/Amino Acids/Dextrose/ Fat Emulsion Intravenous 1,920 ml @ 80 mls/hr TPN CONT IV Last administered on 08/15/19at 22:01; Start 08/15/19 at 22:00; Stop 08/16/19 at 21:59; Status DC Bumetanide (Bumex) 2 mg [id number] IV Last administered on 08/19/19at 13:50; Start 08/16/19 at 14:00; Stop 08/20/19 at 14:10; Status DC Meropenem 1 gm/ Sodium Chloride 100 ml @ 200 mls/hr Q8HRS IV Last administered on 09/09/19at 05:53; Start 08/16/19 at 14:00; Stop 09/09/19 at 09:31; Status DC Potassium Acetate 55 meq/Magnesium Sulfate 20 meq/ Calcium Gluconate 10 meq/ Multivitamins 10 ml/Chromium/ Copper/Manganese/ Seleni/Zn 0.5 ml/ Insulin Human Regular 35 unit/ Total Parenteral Nutrition/Amino Acids/Dextrose/ Fat Emulsion Intravenous 1,920 ml @ 80 mls/hr TPN CONT IV Last administered on 08/16/19at 22:02; Start 08/16/19 at 22:00; Stop 08/17/19 at 21:59; Status DC Hydromorphone HCl (Dilaudid Standard SENIOR GRADUATE ADVISOR) 12 mg STK-MED ONCE IV ; Start 08/15/19 at 14:35; Stop 08/16/19 at 13:53; Status DC Artificial Tears (Artificial Tears) 1 drop PRN Q15MIN PRN OU DRY EYE Last adm inistered on 10/11/19at 21:17; Start 08/17/19 at 05:30 Hydromorphone HCl (Dilaudid Standard SENIOR GRADUATE ADVISOR) 12 mg STK-MED ONCE IV ; Start 08/16/19 at 12:05; Stop 08/17/19 at 09:15; Status DC Potassium Acetate 65 meq/Magnesium Sulfate 20 meq/ Calcium Gluconate 10 meq/ Multivitamins 10 ml/Chromium/ Copper/Manganese/ Seleni/Zn 0.5 ml/ Insulin Human Regular 30 unit/ Total Parenteral Nutrition/Amino Acids/Dextrose/ Fat Emulsion Intravenous 1,920 ml @ 80 mls/hr TPN CONT IV Last administered on 08/17/19at 22:22; Start 08/17/19 at 22:00; Stop 08/18/19 at 21:59; Status DC Cyclobenzaprine HCl (Flexeril) 10 mg PRN Q6HRS PRN PO MUSCLE SPASMS; Start at 10:45 Potassium Acetate 55 meq/Magnesium Sulfate 20 meq/ Calcium Gluconate 10 meq/ Multivitamins 10 ml/Chromium/ Copper/Manganese/ Seleni/Zn 0.5 ml/ Insulin Human Regular 30 unit/ Total Parenteral Nutrition/Amino Acids/Dextrose/ Fat Emulsion Intravenous 1,920 ml @ 80 mls/hr TPN CONT IV Last administered on 08/19/19at 01:00; Start 08/18/19 at 22:00; Stop 08/19/19 at 21:59; Status DC Magnesium Sulfate 50 ml @ 25 mls/hr 1X ONCE IV Last administered on 08/18/19at 17:18; Start 08/18/19 at 12:45; Stop 08/18/19 at 14:44; Status DC Potassium Chloride/Water 100 ml @ 100 mls/hr 1X ONCE IV Last administered on 08/19/19at 11:27; Start 08/19/19 at 12:00; Stop 08/19/19 at 12:59; Status DC Hydromorphone HCl (Dilaudid Standard [employer]) 12 mg STK-MED ONCE IV ; Start 08/17/19 at 10:50; Stop 08/19/19 at 11:02; Status DC Hydromorphone HCl (Dilaudid Standard [employer]) 12 mg STK-MED ONCE IV ; Start 08/18/19 at 13:47; Stop 08/19/19 at 11:03; Status DC Potassium Acetate 30 meq/Magnesium Sulfate 20 meq/ Calcium Gluconate 10 meq/ Multivitamins 10 ml/Chromium/ Copper/Manganese/ Seleni/Zn 0.5 ml/ Insulin Human Regular 30 unit/ Potassium Chloride 30 meq/ Total Parenteral Nutrition/Amino Acids/Dextrose/ Fat Emulsion Intravenous 1,920 ml @ 80 mls/hr TPN CONT IV Last administered on 08/19/19at 22:34; Start 08/19/19 at 22:00; Stop 08/20/19 at 21:59; Status DC Potassium Chloride/Water 100 ml @ 100 mls/hr Q1H IV Last administered on 08/20/19at 13:05; Start 08/20/19 at 07:00; Stop 08/20/19 at 10:59; Status DC Magnesium Sulfate 50 ml @ 25 mls/hr 1X ONCE IV Last administered on 08/20/19at 10:34; Start 08/20/19 at 10:30; Stop 08/20/19 at 12:29; Status DC Potassium Chloride 75 meq/ Magnesium Sulfate 20 meq/Calcium Gluconate 10 meq/ Multivitamins 10 ml/Chromium/ Copper/Manganese/ Seleni/Zn 0.5 ml/ Insulin Human Regular 30 unit/ Total Parenteral Nutrition/Amino Acids/Dextrose/ Fat Emulsion Intravenous 1,920 ml @ 80 mls/hr TPN CONT IV Last administered on 08/20/19at 21:51; Start 08/20/19 at 22:00; Stop 08/21/19 at 22:00; Status DC Potassium Chloride 75 meq/ Magnesium Sulfate 20 meq/Calcium Gluconate 10 meq/ Multivitamins 10 ml/Chromium/ Copper/Manganese/ Seleni/Zn 0.5 ml/ Insulin Human Regular 25 unit/ Total Parenteral Nutrition/Amino Acids/Dextrose/ Fat Emulsion Intravenous 1,920 ml @ 80 mls/hr TPN CONT IV Last administered on 08/21/19at 22:04; Start 08/21/19 at 22:00; Stop 08/22/19 at 21:59; Status DC Hydromorphone HCl (Dilaudid) 0.4 mg PRN Q4HRS PRN IVP PAIN Last administered on 08/22/19at 10:57; Start 08/22/19 at 09:00; Stop 08/22/19 at 18:59; Status DC Micafungin Sodium 100 mg/Dextrose 100 ml @ 100 mls/hr Q24H IV Last administered on 09/13/19at 12:17; Start 08/22/19 at 11:00; Stop 09/14/19 at 09:59; Status DC Daptomycin 485 mg/ Sodium Chloride 50 ml @ 100 mls/hr Q24H IV Last administered on 08/29/19at 13:10; Start 08/22/19 at 11:00; Stop 08/30/19 at 07:44; Status DC Potassium Chloride 75 meq/ Magnesium Sulfate 15 meq/Calcium Gluconate 8 meq/ Multivitamins 10 ml/Chromium/ Copper/Manganese/ Seleni/Zn 0.5 ml/ Insulin Human Regular 25 unit/ Total Parenteral Nutrition/Amino Acids/Dextrose/ Fat Emulsion Intravenous 1,920 ml @ 80 mls/hr TPN CONT IV Last administered on 08/22/19at 23:08; Start 08/22/19 at 22:00; Stop 08/23/19 at 21:59; Status DC Haloperidol Lactate (Haldol Inj) 3 mg 1X ONCE IVP Last administered on 08/22/19at 14:37; Start 08/22/19 at 14:30; Stop 08/22/19 at 14:31; Status DC Hydromorphone HCl (Dilaudid) 1 mg PRN Q4HRS PRN IVP PAIN Last administered on 09/05/19at 06:25; Start 08/22/19 at 19:00; Stop 09/05/19 at 17:10; Status DC Potassium Chloride 75 meq/ Magnesium Sulfate 15 meq/Calcium Gluconate 8 meq/ Multivitamins 10 ml/Chromium/ Copper/Manganese/ Seleni/Zn 0.5 ml/ Insulin Human Regular 20 unit/ Total Parenteral Nutrition/Amino Acids/Dextrose/ Fat Emulsion Intravenous 1,920 ml @ 80 mls/hr TPN CONT IV Last administered on 08/23/19at 22:10; Start 08/23/19 at 22:00; Stop 08/24/19 at 21:59; Status DC Lidocaine HCl (Buffered Lidocaine 1%) 3 ml STK-MED ONCE .ROUTE ; Start 08/24/19 at 11:31; Stop 08/24/19 at 11:31; Status DC Lidocaine HCl (Buffered Lidocaine 1%) 3 ml STK-MED ONCE .ROUTE ; Start 08/24/19 at 12:28; Stop 08/24/19 at 12:29; Status DC Lidocaine HCl (Buffered Lidocaine 1%) 6 ml 1X ONCE INJ Last administered on 08/24/19at 12:53; Start 08/24/19 at 12:45; Stop 08/24/19 at 12:46; Status DC Potassium Chloride 75 meq/ Magnesium Sulfate 15 meq/Calcium Gluconate 8 meq/ Multivitamins 10 ml/Chromium/ Copper/Manganese/ Seleni/Zn 0.5 ml/ Insulin Human Regular 20 unit/ Total Parenteral Nutrition/Amino Acids/Dextrose/ Fat Emulsion Intravenous 1,920 ml @ 80 mls/hr TPN CONT IV Last administered on 08/24/19at 22:00; Start 08/24/19 at 22:00; Stop 08/25/19 at 21:59; Status DC Potassium Chloride 75 meq/ Magnesium Sulfate 15 meq/Calcium Gluconate 8 meq/ Multivitamins 10 ml/Chromium/ Copper/Manganese/ Seleni/Zn 0.5 ml/ Insulin Human Regular 15 unit/ Total Parenteral Nutrition/Amino Acids/Dextrose/ Fat Emulsion Intravenous 1,920 ml @ 80 mls/hr TPN CONT IV Last administered on 08/25/19at 22:28; Start 08/25/19 at 22:00; Stop 08/26/19 at 21:59; Status DC Vecuronium Evergreen (Norcuron Bolus) 6 mg PRN Q6HRS PRN IV VENT ASYNCHRONY; Start 08/25/19 at 19:15; Stop 08/25/19 at 19:35; Status DC Bumetanide (Bumex) 2 mg 1X ONCE IV Last administered on 08/25/19at 22:09; Start 08/25/19 at 19:45; Stop 08/25/19 at 19:46; Status DC Lidocaine HCl (Buffered Lidocaine 1%) 3 ml STK-MED ONCE .ROUTE ; Start 08/26/19 at 07:59; Stop 08/26/19 at 07:59; Status DC Midazolam HCl (Versed) 5 mg STK-MED ONCE .ROUTE ; Start 08/26/19 at 08:36; Stop 08/26/19 at 08:36; Status DC Fentanyl Citrate (Fentanyl 5ml Vial) 250 mcg STK-MED ONCE .ROUTE ; Start 08/26/19 at 08:36; Stop 08/26/19 at 08:37; Status DC Lidocaine HCl (Buffered Lidocaine 1%) 3 ml 1X ONCE IJ Last administered on 08/26/19at 09:30; Start 08/26/19 at 09:15; Stop 08/26/19 at 09:16; Status DC Midazolam HCl (Versed) 5 mg 1X ONCE IV Last administered on 08/26/19at 09:30; Start 08/26/19 at 09:15; Stop 08/26/19 at 09:16; Status DC Fentanyl Citrate (Fentanyl 5ml Vial) 250 mcg 1X ONCE IV Last administered on 08/26/19at 09:30; Start 08/26/19 at 09:15; Stop 08/26/19 at 09:16; Status DC Bumetanide (Bumex) 2 mg DAILY IV Last administered on 09/05/19at 08:07; Start 08/26/19 at 10:00; Stop 09/05/19 at 17:15; Status DC Potassium Chloride 75 meq/ Magnesium Sulfate 15 meq/ Multivitamins 10 ml/Chromium/ Copper/Manganese/ Seleni/Zn 0.5 ml/ Insulin Human Regular 15 unit/ Total Parenteral Nutrition/Amino Acids/Dextrose/ Fat Emulsion Intravenous 1,920 ml @ 80 mls/hr TPN CONT IV Last administered on 08/26/19at 21:59; Start 08/26/19 at 22:00; Stop 08/27/19 at 21:59; Status DC Metoclopramide HCl (Reglan Vial) 10 mg PRN Q3HRS PRN IVP NAUSEA/VOMITING-3rd choice Last administered on 09/01/19at 04:25; Start 08/27/19 at 16:45 Potassium Chloride 75 meq/ Magnesium Sulfate 15 meq/ Multivitamins 10 ml/Chromium/ Copper/Manganese/ Seleni/Zn 0.5 ml/ Insulin Human Regular 15 unit/ Total Parenteral Nutrition/Amino Acids/Dextrose/ Fat Emulsion Intravenous 1,920 ml @ 80 mls/hr TPN CONT IV Last administered on 08/27/19at 22:41; Start 08/27/19 at 22:00; Stop 08/28/19 at 21:59; Status DC Magnesium Sulfate 50 ml @ 25 mls/hr 1X ONCE IV Last administered on 08/28/19at 10:44; Start 08/28/19 at 09:00; Stop 08/28/19 at 10:59; Status DC Potassium Chloride/Water 100 ml @ 100 mls/hr 1X ONCE IV Last administered on 08/28/19at 09:37; Start 08/28/19 at 09:00; Stop 08/28/19 at 09:59; Status DC Duloxetine HCl (Cymbalta) 30 mg DAILY PO Last administered on 08/29/19at 09:48; Start 08/28/19 at 14:00; Stop 08/31/19 at 10:25; Status DC Potassium Chloride 80 meq/ Magnesium Sulfate 20 meq/ Multivitamins 10 ml/Chromium/ Copper/Manganese/ Seleni/Zn 0.5 ml/ Insulin Human Regular 15 unit/ Total Parenteral Nutrition/Amino Acids/Dextrose/ Fat Emulsion Intravenous 1,920 ml @ 80 mls/hr TPN CONT IV Last administered on 08/28/19at 21:42; Start 08/28/19 at 22:00; Stop 08/29/19 at 21:59; Status DC Potassium Chloride 80 meq/ Magnesium Sulfate 20 meq/ Multivitamins 10 ml/Chromium/ Copper/Manganese/ Seleni/Zn 0.5 ml/ Insulin Human Regular 15 unit/ Total Parenteral Nutrition/Amino Acids/Dextrose/ Fat Emulsion Intravenous 1,920 ml @ 80 mls/hr TPN CONT IV Last administered on 08/29/19at 22:20; Start 08/29/19 at 22:00; Stop 08/30/19 at 21:59; Status DC Lidocaine HCl (Buffered Lidocaine 1%) 3 ml STK-MED ONCE .ROUTE ; Start 08/30/19 at 09:54; Stop 08/30/19 at 09:55; Status DC Hydromorphone HCl (Dilaudid Standard [employer]) 12 mg STK-MED ONCE IV ; Start 08/19/19 at 15:50; Stop 08/30/19 at 11:24; Status DC Potassium Chloride 80 meq/ Magnesium Sulfate 20 meq/ Multivitamins 10 ml/Chromium/ Copper/Manganese/ Seleni/Zn 0.5 ml/ Insulin Human Regular 15 unit/ Total Parenteral Nutrition/Amino Acids/Dextrose/ Fat Emulsion Intravenous 1,920 ml @ 80 mls/hr TPN CONT IV Last administered on 08/30/19at 21:40; Start 08/30/19 at 22:00; Stop 08/31/19 at 21:59; Status DC Lidocaine HCl (Buffered Lidocaine 1%) 6 ml 1X ONCE INJ Last administered on 08/30/19at 14:15; Start 08/30/19 at 14:15; Stop 08/30/19 at 14:16; Status DC Potassium Chloride 80 meq/ Magnesium Sulfate 20 meq/ Multivitamins 10 ml/Chromium/ Copper/Manganese/ Seleni/Zn 1 ml/ Insulin Human Regular 15 unit/ Total Parenteral Nutrition/Amino Acids/Dextrose/ Fat Emulsion Intravenous 1,920 ml @ 80 mls/hr TPN CONT IV Last administered on 08/31/19at 22:04; Start 08/31/19 at 22:00; Stop 09/01/19 at 21:59; Status DC Potassium Chloride/Water 100 ml @ 100 mls/hr 1X ONCE IV Last administered on 09/01/19at 11:34; Start 09/01/19 at 11:00; Stop 09/01/19 at 11:59; Status DC Potassium Chloride 90 meq/ Magnesium Sulfate 20 meq/ Multivitamins 10 ml/Chromium/ Copper/Manganese/ Seleni/Zn 1 ml/ Insulin Human Regular 15 unit/ Total Parenteral Nutrition/Amino Acids/Dextrose/ Fat Emulsion Intravenous 1,920 ml @ 80 mls/hr TPN CONT IV Last administered on 09/01/19at 22:57; Start 09/01/19 at 22:00; Stop 09/02/19 at 21:59; Status DC Potassium Chloride 90 meq/ Magnesium Sulfate 20 meq/ Multivitamins 10 ml/Chromium/ Copper/Manganese/ Seleni/Zn 1 ml/ Insulin Human Regular 15 unit/ Total Parenteral Nutrition/Amino Acids/Dextrose/ Fat Emulsion Intravenous 1,920 ml @ 80 mls/hr TPN CONT IV Last administered on 09/02/19at 22:48; Start 09/02/19 at 22:00; Stop 09/03/19 at 21:59; Status DC Potassium Chloride 90 meq/ Magnesium Sulfate 20 meq/ Multivitamins 10 m l/Chromium/ Copper/Manganese/ Seleni/Zn 1 ml/ Insulin Human Regular 15 unit/ Total Parenteral Nutrition/Amino Acids/Dextrose/ Fat Emulsion Intravenous 1,890 ml @ 78.75 mls/ hr TPN CONT IV Last administered on 09/03/19at 22:15; Start 09/03/19 at 22:00; Stop 09/04/19 at 21:59; Status DC Linezolid/Dextrose 300 ml @ 300 mls/hr Q12HR IV Last administered on 09/06/19at 21:08; Start 09/04/19 at 09:00; Stop 09/07/19 at 08:11; Status DC Daptomycin 450 mg/ Sodium Chloride 50 ml @ 100 mls/hr Q24H IV Last admini stered on 09/07/19at 09:25; Start 09/04/19 at 09:00; Stop 09/08/19 at 08:30; Status DC Potassium Chloride 90 meq/ Magnesium Sulfate 20 meq/ Multivitamins 10 ml/Chromium/ Copper/Manganese/ Seleni/Zn 1 ml/ Insulin Human Regular 15 unit/ Total Parenteral Nutrition/Amino Acids/Dextrose/ Fat Emulsion Intravenous 1,890 ml @ 78.75 mls/ hr TPN CONT IV Last administered on 09/04/19at 21:34; Start 09/04/19 at 22:00; Stop 09/05/19 at 21:59; Status DC Lorazepam (Ativan Inj) 2 mg STK-MED ONCE .ROUTE ; Start 09/04/19 at 14:58; Stop 09/04/19 at 14:58; Status DC Metoprolol Tartrate (Lopressor Vial) 5 mg 1X ONCE IVP Last administered on 09/04/19at 15:31; Start 09/04/19 at 15:15; Stop 09/04/19 at 15:16; Status DC Lorazepam (Ativan Inj) 2 mg 1X ONCE IVP Last administered on 09/04/19at 15:30; Start 09/04/19 at 15:15; Stop 09/04/19 at 15:16; Status DC Enoxaparin Sodium (Lovenox 40mg Syringe) 40 mg Q24H SQ Last administered on 09/23/19at 17:44; Start 09/04/19 at 17:00; Stop 09/25/19 at 06:50; Status DC Lorazepam (Ativan Inj) 1 mg PRN Q4HRS PRN IVP ANXIETY / AGITATION MILD-MOD Last administered on 09/18/19at 15:55; Start 09/04/19 at 19:15; Stop 09/20/19 at 11:45; Status DC Lorazepam (Ativan Inj) 2 mg PRN Q4HRS PRN IVP ANXIETY / AGITATION SEVERE Last administered on 09/19/19at 07:55; Start 09/04/19 at 19:15; Stop 09/20/19 at 11:45; Status DC Fentanyl Citrate (Fentanyl 2ml Vial) 50 mcg PRN Q4HRS PRN IVP SEVERE PAIN Last administered on 10/01/19at 05:15; Start 09/05/19 at 13:15; Stop 10/02/19 at 09:29; Status DC Fentanyl Citrate (Fentanyl 2ml Vial) 25 mcg PRN Q4HRS PRN IVP MODERATE PAIN Last administered on 10/01/19at 00:27; Start 09/05/19 at 13:15; Stop 10/02/19 at 09:30; Status DC Potassium Chloride 90 meq/ Magnesium Sulfate 20 meq/ Multivitamins 10 ml/Chromium/ Copper/Manganese/ Seleni/Zn 1 ml/ Insulin Human Regular 15 unit/ Total Parenteral Nutrition/Amino Acids/Dextrose/ Fat Emulsion Intravenous 1,890 ml @ 78.75 mls/ hr TPN CONT IV Last administered on 09/05/19at 22:18; Start 09/05/19 at 22:00; Stop 09/06/19 at 21:59; Status DC Furosemide (Lasix) 40 mg 1X ONCE IVP Last administered on 09/05/19at 21:51; Start 09/05/19 at 21:45; Stop 09/05/19 at 21:48; Status DC Albumin Human 100 ml @ 100 mls/hr 1X PRN PRN IV SEE COMMENTS; Start 09/06/19 at 01:30 Furosemide (Lasix) 40 mg [id number] IVP Last administered on 09/21/19at 08:04; Start 09/06/19 at 14:00; Stop 09/21/19 at 13:07; Status DC Potassium Chloride 90 meq/ Magnesium Sulfate 20 meq/ Multivitamins 10 ml/Chromium/ Copper/Manganese/ Seleni/Zn 1 ml/ Insulin Human Regular 15 unit/ T otal Parenteral Nutrition/Amino Acids/Dextrose/ Fat Emulsion Intravenous 1,800 ml @ 75 mls/hr TPN CONT IV Last administered on 09/06/19at 22:31; Start 09/06/19 at 22:00; Stop 09/07/19 at 21:59; Status DC Potassium Chloride 90 meq/ Magnesium Sulfate 20 meq/ Multivitamins 10 ml/Chromium/ Copper/Manganese/ Seleni/Zn 1 ml/ Insulin Human Regular 15 unit/ Total Parenteral Nutrition/Amino Acids/Dextrose/ Fat Emulsion Intravenous 1,800 ml @ 75 mls/hr TPN CONT IV Last administered on 09/07/19at 22:28; Start at 22:00; Stop 09/08/19 at 21:59; Status DC Potassium Chloride 110 meq/ Magnesium Sulfate 20 meq/ Multivitamins 10 ml/Chr omium/ Copper/Manganese/ Seleni/Zn 1 ml/ Insulin Human Regular 15 unit/ Total Parenteral Nutrition/Amino Acids/Dextrose/ Fat Emulsion Intravenous 1,800 ml @ 75 mls/hr TPN CONT IV Last administered on 09/08/19at 22:01; Start 09/08/19 at 22:00; Stop 09/09/19 at 21:59; Status DC Saliva Substitute (Biotene Moisturizing Mouth) 2 spray PRN Q15MIN PRN PO DRY MOUTH; Start 09/08/19 at 11:00 Potassium Chloride 110 meq/ Magnesium Sulfate 20 meq/ Multivitamins 10 ml/Chromium/ Copper/Manganese/ Seleni/Zn 1 ml/ Insulin Human Regular 15 unit/ Total Parenteral Nutrition/Amino Acids/Dextrose/ Fat Emulsion Intravenous 1,800 ml @ 75 mls/hr TPN CONT IV Last administered on 09/09/19at 22:21; Start 09/09/19 at 22:00; Stop 09/10/19 at 21:59; Status DC Potassium Chloride 110 meq/ Magnesium Sulfate 20 meq/ Multivitamins 10 ml/Chromium/ Copper/Manganese/ Seleni/Zn 1 ml/ Insulin Human Regular 15 unit/ T otal Parenteral Nutrition/Amino Acids/Dextrose/ Fat Emulsion Intravenous 1,800 ml @ 75 mls/hr TPN CONT IV Last administered on 09/10/19at 22:04; Start 09/10/19 at 22:00; Stop 09/11/19 at 21:59; Status DC Potassium Chloride 110 meq/ Magnesium Sulfate 20 meq/ Multivitamins 10 ml/Chromium/ Copper/Manganese/ Seleni/Zn 1 ml/ Insulin Human Regular 15 unit/ Total Parenteral Nutrition/Amino Acids/Dextrose/ Fat Emulsion Intravenous 1,800 ml @ 75 mls/hr TPN CONT IV Last administered on 09/11/19at 22:48; Start at 22:00; Stop 09/12/19 at 21:59; Status DC Potassium Chloride 70 meq/ Magnesium Sulfate 20 meq/ Multivitamins 10 ml/Chr omium/ Copper/Manganese/ Seleni/Zn 1 ml/ Insulin Human Regular 15 unit/ Total Parenteral Nutrition/Amino Acids/Dextrose/ Fat Emulsion Intravenous 1,800 ml @ 75 mls/hr TPN CONT IV Last administered on 09/12/19at 21:39; Start 09/12/19 at 22:00; Stop 09/13/19 at 21:59; Status DC Meropenem 500 mg/ Sodium Chloride 50 ml @ 100 mls/hr Q6HRS IV Last administered on 09/14/19at 06:02; Start 09/12/19 at 18:00; Stop 09/14/19 at 09:59; Status DC Barium Sulfate (Varibar Thin Liquid Apple) 148 gm 1X ONCE PO ; Start 09/13/19 at 11:45; Stop 09/13/19 at 11:49; Status DC Potassium Chloride 70 meq/ Magnesium Sulfate 20 meq/ Multivitamins 10 ml/C hromium/ Copper/Manganese/ Seleni/Zn 1 ml/ Insulin Human Regular 15 unit/ Total Parenteral Nutrition/Amino Acids/Dextrose/ Fat Emulsion Intravenous 1,800 ml @ 75 mls/hr TPN CONT IV Last administered on 09/13/19at 22:27; Start 09/13/19 at 22:00; Stop 09/14/19 at 21:59; Status DC Piperacillin Sod/ Tazobactam Sod 3.375 gm/Sodium Chloride 50 ml @ 100 mls/hr Q6HRS IV Last administered on 09/22/19at 06:10; Start 09/14/19 at 12:00; Stop 09/22/19 at 07:26; Status DC Potassium Chloride 70 meq/ Magnesium Sulfate 20 meq/ Multivitamins 10 ml/Chromium/ Copper/Manganese/ Seleni/Zn 1 ml/ Insulin Human Regular 15 unit/ Total Parenteral Nutrition/Amino Acids/Dextrose/ Fat Emulsion Intravenous 1,800 ml @ 75 mls/hr TPN CONT IV Last administered on 09/14/19at 22:03; Start 09/14/19 at 22:00; Stop 09/15/19 at 21:59; Status DC Potassium Chloride 70 meq/ Magnesium Sulfate 20 meq/ Multivitamins 10 ml/C hromium/ Copper/Manganese/ Seleni/Zn 1 ml/ Insulin Human Regular 15 unit/ Total Parenteral Nutrition/Amino Acids/Dextrose/ Fat Emulsion Intravenous 1,800 ml @ 75 mls/hr TPN CONT IV Last administered on 09/15/19at 22:33; Start 09/15/19 at 22:00; Stop 09/16/19 at 21:59; Status DC Potassium Chloride 70 meq/ Magnesium Sulfate 20 meq/ Multivitamins 10 ml/Chromium/ Copper/Manganese/ Seleni/Zn 1 ml/ Insulin Human Regular 15 unit/ Total Parenteral Nutrition/Amino Acids/Dextrose/ Fat Emulsion Intravenous 1,800 ml @ 75 mls/hr TPN CONT IV Last administered on 09/16/19at 23:13; Start 09/16/19 at 22:00; Stop 09/17/19 at 21:59; Status DC Potassium Chloride 80 meq/ Magnesium Sulfate 20 meq/ Multivitamins 10 ml/Chromium/ Copper/Manganese/ Seleni/Zn 1 ml/ Insulin Human Regular 15 unit/ Total Parenteral Nutrition/Amino Acids/Dextrose/ Fat Emulsion Intravenous 1,800 ml @ 75 mls/hr TPN CONT IV Last administered on 09/17/19at 22:30; Start 09/17/19 at 22:00; Stop 09/18/19 at 21:59; Status DC Potassium Chloride 80 meq/ Magnesium Sulfate 20 meq/ Multivitamins 10 ml/Chromium/ Copper/Manganese/ Seleni/Zn 1 ml/ Insulin Human Regular 15 unit/ Total Parenteral Nutrition/Amino Acids/Dextrose/ Fat Emulsion Intravenous 1,800 ml @ 75 mls/hr TPN CONT IV Last administered on 09/18/19at 21:54; Start 09/18/19 at 22:00; Stop 09/19/19 at 21:59; Status DC Potassium Chloride/Water 100 ml @ 100 mls/hr 1X ONCE IV Last administered on 09/19/19at 10:15; Start 09/19/19 at 10:00; Stop 09/19/19 at 10:59; Status DC Potassium Chloride 90 meq/ Magnesium Sulfate 20 meq/ Multivitamins 10 ml/Chromium/ Copper/Manganese/ Seleni/Zn 1 ml/ Insulin Human Regular 20 unit/ Total Parenteral Nutrition/Amino Acids/Dextrose/ Fat Emulsion Intravenous 1,800 ml @ 75 mls/hr TPN CONT IV Last administered on 09/19/19at 22:28; Start 09/19/19 at 22:00; Stop 09/20/19 at 21:59; Status DC Potassium Chloride 90 meq/ Magnesium Sulfate 20 meq/ Multivitamins 10 ml/Chromium/ Copper/Manganese/ Seleni/Zn 1 ml/ Insulin Human Regular 20 unit/ Total Parenteral Nutrition/Amino Acids/Dextrose/ Fat Emulsion Intravenous 1,800 ml @ 75 mls/hr TPN CONT IV Last administered on 09/20/19at 22:08; Start 09/20/19 at 22:00; Stop 09/21/19 at 21:59; Status DC Lorazepam (Ativan Inj) 0.25 mg PRN Q4HRS PRN IVP ANXIETY / AGITATION Last administered on 10/15/19at 13:37; Start 09/21/19 at 07:30 Potassium Chloride 90 meq/ Magnesium Sulfate 20 meq/ Multivitamins 10 ml/Chromium/ Copper/Manganese/ Seleni/Zn 1 ml/ Insulin Human Regular 20 unit/ Total Parenteral Nutrition/Amino Acids/Dextrose/ Fat Emulsion Intravenous 1,800 ml @ 75 mls/hr TPN CONT IV Last administered on 09/21/19at 23:13; Start 09/21/19 at 22:00; Stop 09/22/19 at 21:59; Status DC Furosemide (Lasix) 40 mg DAILY IVP Last administered on 09/23/19at 11:14; Start 09/21/19 at 13:30; Stop 09/25/19 at 09:12; Status DC Fluoxetine HCl (PROzac) 20 mg QHS PEG Last administered on 10/25/19at 21:31; Start 09/22/19 at 21:00 Fentanyl (Duragesic 50mcg/ Hr Patch) 1 patch Q72H TD Last administered on 09/22/19at 21:22; Start 09/22/19 at 21:00; Stop 10/01/19 at 12:00; Status DC Potassium Chloride 40 meq/ Potassium Acetate 60 meq/Magnesium Sulfate 10 meq/ Multivitamins 10 ml/Chromium/ Copper/Manganese/ Seleni/Zn 1 ml/ Insulin Human Regular 20 unit/ Total Parenteral Nutrition/Amino Acids/Dextrose/ Fat Emulsion Intravenous 1,800 ml @ 75 mls/hr TPN CONT IV Last administered on 09/23/19at 00:03; Start 09/22/19 at 22:00; Stop 09/23/19 at 21:59; Status DC Potassium Acetate 80 meq/Magnesium Sulfate 5 meq/ Multivitamins 10 ml/Chromium/ Copper/Manganese/ Seleni/Zn 1 ml/ Insulin Human Regular 20 unit/ Total Parenteral Nutrition/Amino Acids/Dextrose/ Fat Emulsion Intravenous 1,920 ml @ 80 mls/hr TPN CONT IV Last administered on 09/23/19at 21:59; Start 09/23/19 at 22:00; Stop 09/24/19 at 21:59; Status DC Potassium Acetate 60 meq/Magnesium Sulfate 5 meq/ Multivitamins 10 ml/Chromium/ Copper/Manganese/ Seleni/Zn 1 ml/ Insulin Human Regular 30 unit/ Total Parenteral Nutrition/Amino Acids/Dextrose/ Fat Emulsion Intravenous 1,920 ml @ 80 mls/hr TPN CONT IV Last administered on 09/24/19at 21:54; Start 09/24/19 at 22:00; Stop 09/25/19 at 21:59; Status DC Norepinephrine Bitartrate 8 mg/ Dextrose 258 ml @ 13.332 mls/ hr CONT PRN IV PER PROTOCOL Last administered on 10/20/19at 09:09; Start 09/25/19 at 06:30 Albumin Human 500 ml @ 125 mls/hr 1X ONCE IV Last administered on 09/25/19at 08:10; Start 09/25/19 at 08:15; Stop 09/25/19 at 12:14; Status DC Potassium Acetate 40 meq/Magnesium Sulfate 5 meq/ Multivitamins 10 ml/Chromium/ Copper/Manganese/ Seleni/Zn 1 ml/ Insulin Human Regular 30 unit/ Total Parenteral Nutrition/Amino Acids/Dextrose/ Fat Emulsion Intravenous 1,920 ml @ 80 mls/hr TPN CONT IV Last administered on 09/25/19at 22:23; Start 09/25/19 at 22:00; Stop 09/26/19 at 21:59; Status DC Meropenem 1 gm/ Sodium Chloride 100 ml @ 200 mls/hr Q8HRS IV ; Start 09/25/19 at 14:00; Status Cancel Meropenem 1 gm/ Sodium Chloride 100 ml @ 200 mls/hr Q8HRS IV Last administered on 09/25/19at 11:04; Start 09/25/19 at 10:00; Stop 09/25/19 at 13:00; Status DC Meropenem 1 gm/ Sodium Chloride 100 ml @ 200 mls/hr Q12HR IV Last administered on 10/13/19at 08:27; Start 09/25/19 at 21:00; Stop 10/13/19 at 08:56; Status DC Sodium Chloride 1,000 ml @ 1,000 mls/hr 1X ONCE IV Last administered on 09/25/19at 11:06; Start 09/25/19 at 10:45; Stop 09/25/19 at 11:44; Status DC Micafungin Sodium 100 mg/Dextrose 100 ml @ 100 mls/hr Q24H IV Last administered on 10/12/19at 12:34; Start 09/25/19 at 11:00; Stop 10/13/19 at 08:56; Status DC Daptomycin 410 mg/ Sodium Chloride 50 ml @ 100 mls/hr Q24H IV Last administered on 09/27/19at 13:33; Start 09/25/19 at 14:00; Stop 09/28/19 at 08:30; Status DC Midazolam HCl (Versed) 2 mg STK-MED ONCE .ROUTE ; Start 09/25/19 at 14:47; Stop 09/25/19 at 14:48; Status DC Fentanyl Citrate (Fentanyl 2ml Vial) 100 mcg STK-MED ONCE .ROUTE ; Start 09/25/19 at 14:47; Stop 09/25/19 at 14:48; Status DC Flumazenil (Romazicon) 0.5 mg STK-MED ONCE IV ; Start 09/25/19 at 14:48; Stop 09/25/19 at 14:48; Status DC Naloxone HCl (Narcan) 0.4 mg STK-MED ONCE .ROUTE ; Start 09/25/19 at 14:48; Stop 09/25/19 at 14:48; Status DC Lidocaine HCl (Lidocaine 1% 20ml Vial) 20 ml STK-MED ONCE .ROUTE ; Start 09/25/19 at 14:48; Stop 09/25/19 at 14:48; Status DC Midazolam HCl (Versed) 2 mg 1X ONCE IV Last administered on 09/25/19at 15:28; Start 09/25/19 at 15:00; Stop 09/25/19 at 15:01; Status DC Fentanyl Citrate (Fentanyl 2ml Vial) 100 mcg 1X ONCE IV Last administered on 09/25/19at 15:28; Start 09/25/19 at 15:00; Stop 09/25/19 at 15:01; Status DC Lidocaine HCl (Lidocaine 1% 20ml Vial) 20 ml 1X ONCE INJ Last administered on 09/25/19at 15:30; Start 09/25/19 at 15:00; Stop 09/25/19 at 15:01; Status DC Sodium Chloride 1,000 ml @ 100 mls/hr Q10H IV Last administered on 10/04/19at 07:30; Start 09/25/19 at 20:00; Stop 10/04/19 at 11:26; Status DC Sodium Bicarbonate (Sodium Bicarb Adult 8.4% Syr) 50 meq 1X ONCE IV Last administered on 09/25/19at 21:47; Start 09/25/19 at 22:00; Stop 09/25/19 at 22:01; Status DC Potassium Acetate 40 meq/Magnesium Sulfate 5 meq/ Multivitamins 10 ml/Chromium/ Copper/Manganese/ Seleni/Zn 1 ml/ Insulin Human Regular 30 unit/ Total Pare nteral Nutrition/Amino Acids/Dextrose/ Fat Emulsion Intravenous 1,920 ml @ 80 mls/hr TPN CONT IV Last administered on 09/26/19at 22:28; Start 09/26/19 at 22:00; Stop 09/27/19 at 21:59; Status DC Sodium Chloride 500 ml @ 500 mls/hr 1X ONCE IV Last administered on 09/27/19at 06:39; Start 09/27/19 at 06:45; Stop 09/27/19 at 07:44; Status DC Potassium Acetate 40 meq/Magnesium Sulfate 5 meq/ Multivitamins 10 ml/Chromium/ Copper/Manganese/ Seleni/Zn 1 ml/ Insulin Human Regular 30 unit/ Total Parenteral Nutrition/Amino Acids/Dextrose/ Fat Emulsion Intravenous 1,920 ml @ 80 mls/hr TPN CONT IV Last administered on 09/27/19at 22:03; Start 09/27/19 at 22:00; Stop 09/28/19 at 21:59; Status DC Metoprolol Tartrate (Lopressor Vial) 5 mg PRN Q6HRS PRN IVP HYPERTENSION Last administered on 10/06/19at 10:14; Start 09/28/19 at 09:00 Potassium Acetate 40 meq/Magnesium Sulfate 5 meq/ Multivitamins 10 ml/Chromium/ Copper/Manganese/ Seleni/Zn 1 ml/ Insulin Human Regular 30 unit/ Total Parenteral Nutrition/Amino Acids/Dextrose/ Fat Emulsion Intravenous 1,920 ml @ 80 mls/hr TPN CONT IV Last administered on 09/28/19at 21:26; Start 09/28/19 at 22:00; Stop 09/29/19 at 21:59; Status DC Potassium Acetate 40 meq/Magnesium Sulfate 5 meq/ Multivitamins 10 ml/Chromium/ Copper/Manganese/ Seleni/Zn 1 ml/ Insulin Human Regular 30 unit/ Total Parenteral Nutrition/Amino Acids/Dextrose/ Fat Emulsion Intravenous 1,920 ml @ 80 mls/hr TPN CONT IV Last administered on 09/29/19at 23:23; Start 09/29/19 at 22:00; Stop 09/30/19 at 21:59; Status DC Potassium Acetate 40 meq/Magnesium Sulfate 5 meq/ Multivitamins 10 ml/Chromium/ Copper/Manganese/ Seleni/Zn 1 ml/ Insulin Human Regular 30 unit/ Total Parenteral Nutrition/Amino Acids/Dextrose/ Fat Emulsion Intravenous 1,920 ml @ 80 mls/hr TPN CONT IV Last administered on 09/30/19at 21:35; Start 09/30/19 at 22:00; Stop 10/01/19 at 21:59; Status DC Furosemide (Lasix) 20 mg 1X ONCE IVP Last administered on 10/01/19at 06:26; Start 10/01/19 at 06:15; Stop 10/01/19 at 06:16; Status DC Methylprednisolone Sodium Succinate (SOLU-Medrol 125MG VIAL) 125 mg 1X ONCE IV Last administered on 10/01/19at 06:26; Start 10/01/19 at 06:15; Stop 10/01/19 at 06:16; Status DC Albuterol/ Ipratropium (Duoneb) 3 ml Q4HRS NEB Last administered on 10/26/19at 08:26; Start 10/01/19 at 08:00 Fentanyl Citrate 30 ml @ 0 mls/hr CONT PRN IV SEE PROTOCOL Last administered on 10/22/19at 08:03; Start 10/01/19 at 06:00; Stop 10/22/19 at 12:42; Status DC Propofol 100 ml @ 0 mls/hr CONT PRN IV SEE PROTOCOL Last administered on 10/08/19at 23:50; Start 10/01/19 at 06:00 Fentanyl Citrate (Fentanyl 2ml Vial) 25 mcg PRN Q1HR PRN IV SEE COMMENTS; Start 10/01/19 at 06:00 Fentanyl Citrate (Fentanyl 2ml Vial) 50 mcg PRN Q1HR PRN IV SEE COMMENTS; Start 10/01/19 at 06:00 Chlorhexidine Gluconate (Peridex) 15 ml BID MM ; Start 10/01/19 at 09:00; Stop 10/01/19 at 07:58; Status DC Potassium Acetate 40 meq/Magnesium Sulfate 5 meq/ Multivitamins 10 ml/Chromium/ Copper/Manganese/ Seleni/Zn 1 ml/ Insulin Human Regular 30 unit/ Total Parenteral Nutrition/Amino Acids/Dextrose/ Fat Emulsion Intravenous 1,920 ml @ 80 mls/hr TPN CONT IV Last administered on 10/01/19at 21:19; Start 10/01/19 at 22:00; Stop 10/02/19 at 21:59; Status DC Acetylcysteine (Mucomyst 20% Resp Treatment) 600 mg BID NEB Last administered on 10/07/19at 09:33; Start 10/01/19 at 21:00; Stop 10/07/19 at 10:39; Status DC Magnesium Sulfate 100 ml @ 25 mls/hr 1X ONCE IV Last administered on 10/01/19at 15:48; Start 10/01/19 at 15:45; Stop 10/01/19 at 19:44; Status DC Potassium Acetate 40 meq/Magnesium Sulfate 5 meq/ Multivitamins 10 ml/Chromium/ Copper/Manganese/ Seleni/Zn 1 ml/ Insulin Human Regular 30 unit/ Total Parenteral Nutrition/Amino Acids/Dextrose/ Fat Emulsion Intravenous 1,920 ml @ 80 mls/hr TPN CONT IV Last administered on 10/02/19at 21:35; Start 10/02/19 at 22:00; Stop 10/03/19 at 21:59; Status DC Potassium Chloride/Water 100 ml @ 100 mls/hr Q1H IV Last administered on 10/03/19at 08:31; Start 10/03/19 at 07:00; Stop 10/03/19 at 08:59; Status DC Potassium Acetate 40 meq/Magnesium Sulfate 5 meq/ Multivitamins 10 ml/Chromium/ Copper/Manganese/ Seleni/Zn 1 ml/ Insulin Human Regular 30 unit/ Total Parenteral Nutrition/Amino Acids/Dextrose/ Fat Emulsion Intravenous 1,920 ml @ 80 mls/hr TPN CONT IV Last administered on 10/03/19at 21:54; Start 10/03/19 at 22:00; Stop 10/04/19 at 19:34; Status DC Lidocaine HCl (Buffered Lidocaine 1%) 3 ml STK-MED ONCE .ROUTE ; Start 10/03/19 at 12:14; Stop 10/03/19 at 12:14; Status DC Lidocaine HCl (Buffered Lidocaine 1%) 3 ml 1X ONCE IJ Last administered on 10/03/19at 13:11; Start 10/03/19 at 13:00; Stop 10/03/19 at 13:01; Status DC Magnesium Sulfate 50 ml @ 25 mls/hr 1X ONCE IV ; Start 10/04/19 at 08:15; Stop 10/04/19 at 10:14; Status DC Potassium Acetate 40 meq/Magnesium Sulfate 10 meq/ Multivitamins 10 ml/Chromium/ Copper/Manganese/ Seleni/Zn 1 ml/ Insulin Human Regular 20 unit/ Total Parenteral Nutrition/Amino Acids/Dextrose/ Fat Emulsion Intravenous 1,920 ml @ 80 mls/hr TPN CONT IV Last administered on 10/04/19at 21:32; Start 10/04/19 at 22:00; Stop 10/05/19 at 21:59; Status DC Potassium Chloride/Water 100 ml @ 100 mls/hr Q1H IV Last administered on 10/05/19at 09:12; Start 10/05/19 at 08:00; Stop 10/05/19 at 09:59; Status DC Alteplase, Recombinant (Cathflo For Central Catheter Clearance) 4 mg 1X ONCE INT CAT ; Start 10/05/19 at 09:15; Stop 10/05/19 at 09:16; Status UNV Alteplase, Recombinant (Cathflo For Central Catheter Clearance) 4 mg 1X ONCE INT CAT ; Start 10/05/19 at 09:15; Stop 10/05/19 at 09:16; Status UNV Alteplase, Recombinant (Cathflo For Central Catheter Clearance) 4 mg 1X ONCE INT CAT ; Start 10/05/19 at 09:15; Stop 10/05/19 at 09:16; Status UNV Alteplase, Recombinant 4 mg/ Sodium Chloride 20 ml @ 20 mls/hr 1X ONCE IV Last administered on 10/05/19at 10:10; Start 10/05/19 at 10:00; Stop 10/05/19 at 10:59; Status DC Alteplase, Recombinant 4 mg/ Sodium Chloride 20 ml @ 20 mls/hr 1X ONCE IV Last administered on 10/05/19at 10:09; Start 10/05/19 at 10:00; Stop 10/05/19 at 10:59; Status DC Alteplase, Recombinant 4 mg/ Sodium Chloride 20 ml @ 20 mls/hr 1X ONCE IV Last administered on 10/05/19at 10:09; Start 10/05/19 at 10:00; Stop 10/05/19 at 10:59; Status DC Potassium Acetate 60 meq/Magnesium Sulfate 10 meq/ Multivitamins 10 ml/Chromium/ Copper/Manganese/ Seleni/Zn 1 ml/ Insulin Human Regular 20 unit/ Total Parenteral Nutrition/Amino Acids/Dextrose/ Fat Emulsion Intravenous 1,920 ml @ 80 mls/hr TPN CONT IV Last administered on 10/05/19at 21:55; Start 10/05/19 at 22:00; Stop 10/06/19 at 21:59; Status DC Albumin Human 500 ml @ 125 mls/hr 1X ONCE IV Last administered on 10/06/19at 12:01; Start 10/06/19 at 11:15; Stop 10/06/19 at 15:14; Status DC Sodium Chloride 500 ml @ 500 mls/hr 1X ONCE IV Last administered on 10/06/19at 13:50; Start 10/06/19 at 11:15; Stop 10/06/19 at 12:14; Status DC Potassium Acetate 60 meq/Magnesium Sulfate 14 meq/ Multivitamins 10 ml/Chromium/ Copper/Manganese/ Seleni/Zn 1 ml/ Insulin Human Regular 20 unit/ Total Parenteral Nutrition/Amino Acids/Dextrose/ Fat Emulsion Intravenous 1,920 ml @ 80 mls/hr TPN CONT IV Last administered on 10/06/19at 22:26; Start 10/06/19 at 22:00; Stop 10/07/19 at 21:59; Status DC Ciprofloxacin/ Dextrose 200 ml @ 200 mls/hr Q12HR IV Last administered on 10/13/19at 08:27; Start 10/06/19 at 21:00; Stop 10/13/19 at 08:56; Status DC Albumin Human 250 ml @ 62.5 mls/hr 1X ONCE IV Last administered on 10/07/19at 11:09; Start 10/07/19 at 11:00; Stop 10/07/19 at 14:59; Status DC Furosemide (Lasix) 20 mg 1X ONCE IVP Last administered on 10/07/19at 14:52; Start 10/07/19 at 10:45; Stop 10/07/19 at 10:49; Status DC Potassium Acetate 60 meq/Magnesium Sulfate 14 meq/ Multivitamins 10 ml/Chromium/ Copper/Manganese/ Seleni/Zn 1 ml/ Insulin Human Regular 15 unit/ Total Parenteral Nutrition/Amino Acids/Dextrose/ Fat Emulsion Intravenous 1,920 ml @ 80 mls/hr TPN CONT IV Last administered on 10/07/19at 22:08; Start 10/07/19 at 22:00; Stop 10/08/19 at 21:59; Status DC Potassium Acetate 60 meq/Magnesium Sulfate 14 meq/ Multivitamins 10 ml/Chromium/ Copper/Manganese/ Seleni/Zn 1 ml/ Insulin Human Regular 15 unit/ Total Parenteral Nutrition/Amino Acids/Dextrose/ Fat Emulsion Intravenous 1,920 ml @ 80 mls/hr TPN CONT IV Last administered on 10/08/19at 22:12; Start 10/08/19 at 22:00; Stop 10/09/19 at 21:59; Status DC Potassium Acetate 60 meq/Magnesium Sulfate 14 meq/ Multivitamins 10 ml/Chromium/ Copper/Manganese/ Seleni/Zn 1 ml/ Insulin Human Regular 15 unit/ Total Paren teral Nutrition/Amino Acids/Dextrose/ Fat Emulsion Intravenous 1,920 ml @ 80 mls/hr TPN CONT IV Last administered on 10/09/19at 22:22; Start 10/09/19 at 22:00; Stop 10/10/19 at 21:59; Status DC Furosemide (Lasix) 20 mg 1X ONCE IVP Last administered on 10/10/19at 11:07; Start 10/10/19 at 10:30; Stop 10/10/19 at 10:34; Status DC Potassium Acetate 60 meq/Magnesium Sulfate 14 meq/ Multivitamins 10 ml/Chromium/ Copper/Manganese/ Seleni/Zn 1 ml/ Insulin Human Regular 15 unit/ Sodium Chloride 20 meq/Total Parenteral Nutrition/Amino Acids/Dextrose/ Fat Emulsion Intravenous 1,920 ml @ 80 mls/hr TPN CONT IV Last administered on 10/10/19at 21:54; Start 10/10/19 at 22:00; Stop 10/11/19 at 21:59; Status DC Potassium Acetate 30 meq/Magnesium Sulfate 14 meq/ Multivitamins 10 ml/Chromium/ Copper/Manganese/ Seleni/Zn 1 ml/ Insulin Human Regular 15 unit/ Sodium Chloride 20 meq/Potassium Chloride 30 meq/ Total Parenteral Nutrition/Amino Acids/Dextrose/ Fat Emulsion Intravenous 1,920 ml @ 80 mls/hr TPN CONT IV Last administered on 10/11/19at 21:46; Start 10/11/19 at 22:00; Stop 10/12/19 at 21:59; Status DC Sodium Chloride 80 meq/Potassium Chloride 30 meq/ Potassium Acetate 30 meq/Magnesium Sulfate 14 meq/ Multivitamins 10 ml/Chromium/ Copper/Manganese/ Seleni/Zn 1 ml/ Insulin Human Regular 15 unit/ Total Parenteral Nutrition/Amino Acids/Dextrose/ Fat Emulsion Intravenous 1,920 ml @ 80 mls/hr TPN CONT IV Last administered on 10/12/19at 22:33; Start 10/12/19 at 22:00; Stop 10/13/19 at 21:59; Status DC Furosemide (Lasix) 40 mg 1X ONCE IVP Last administered on 10/12/19at 16:27; Start 10/12/19 at 15:30; Stop 10/12/19 at 15:33; Status DC Albumin Human 250 ml @ 62.5 mls/hr 1X ONCE IV Last administered on 10/12/19at 16:27; Start 10/12/19 at 15:30; Stop 10/12/19 at 19:29; Status DC Sodium Chloride 80 meq/Potassium Chloride 30 meq/ Potassium Acetate 30 meq/Magnesium Sulfate 14 meq/ Multivitamins 10 ml/Chromium/ Copper/Manganese/ Seleni/Zn 1 ml/ Insulin Human Regular 15 unit/ Total Parenteral Nutrition/Amino Acids/Dextrose/ Fat Emulsion Intravenous 1,920 ml @ 80 mls/hr TPN CONT IV Last administered on 10/13/19at 22:25; Start 10/13/19 at 22:00; Stop 10/14/19 at 21:59; Status DC Sodium Chloride 80 meq/Potassium Chloride 30 meq/ Potassium Acetate 30 meq/Magnesium Sulfate 14 meq/ Multivitamins 10 ml/Chromium/ Copper/Manganese/ Seleni/Zn 1 ml/ Insulin Human Regular 15 unit/ Total Parenteral Nutrition/Amino Acids/Dextrose/ Fat Emulsion Intravenous 1,920 ml @ 80 mls/hr TPN CONT IV Last administered on 10/14/19at 21:32; Start 10/14/19 at 22:00; Stop 10/15/19 at 21:59; Status DC Sodium Chloride 80 meq/Potassium Chloride 30 meq/ Potassium Acetate 30 meq/Ma gnesium Sulfate 14 meq/ Multivitamins 10 ml/Chromium/ Copper/Manganese/ Seleni/Zn 1 ml/ Insulin Human Regular 15 unit/ Total Parenteral Nutrition/Amino Acids/Dextrose/ Fat Emulsion Intravenous 1,920 ml @ 80 mls/hr TPN CONT IV Last administered on 10/15/19at 21:53; Start 10/15/19 at 22:00; Stop 10/16/19 at 21:59; Status DC Acetylcysteine (Mucomyst 20% Resp Treatment) 600 mg RTBID NEB Last administered on 10/26/19at 08:25; Start 10/15/19 at 12:00 Sodium Chloride 80 meq/Potassium Chloride 30 meq/ Potassium Acetate 30 meq/Magnesium Sulfate 14 meq/ Multivitamins 10 ml/Chromium/ Copper/Manganese/ Seleni/Zn 1 ml/ Insulin Human Regular 15 unit/ Total Parenteral Nutrition/Amino Acids/Dextrose/ Fat Emulsion Intravenous 1,920 ml @ 80 mls/hr TPN CONT IV Last administered on 10/16/19at 22:06; Start 10/16/19 at 22:00; Stop 10/17/19 at 21:59; Status DC Meropenem 500 mg/ Sodium Chloride 50 ml @ 100 mls/hr Q6HRS IV Last administered on 10/26/19at 06:21; Start 10/16/19 at 18:00 Daptomycin 500 mg/ Sodium Chloride 50 ml @ 100 mls/hr Q24H IV Last administered on 10/24/19at 21:47; Start 10/16/19 at 19:00; Stop 10/25/19 at 08:13; Status DC Sodium Chloride 80 meq/Potassium Chloride 30 meq/ Potassium Acetate 30 meq/Magnesium Sulfate 14 meq/ Multivitamins 10 ml/Chromium/ Copper/Manganese/ Seleni/Zn 1 ml/ Insulin Human Regular 15 unit/ Total Parenteral Nutrition/Amino Acids/Dextrose/ Fat Emulsion Intravenous 1,920 ml @ 80 mls/hr TPN CONT IV Last administered on 10/17/19at 22:09; Start 10/17/19 at 22:00; Stop 10/18/19 at 21:59; Status DC Heparin Sodium (Porcine) 1000 unit/Sodium Chloride 1,001 ml @ 1,001 mls/hr 1X ONCE IRR ; Start 10/18/19 at 06:00; Stop 10/18/19 at 06:59; Status DC Propofol (Diprivan) 200 mg STK-MED ONCE IV ; Start 10/18/19 at 07:44; Stop 10/18/19 at 07:44; Status DC Lidocaine HCl (Lidocaine Pf 2% Vial) 5 ml STK-MED ONCE .ROUTE ; Start 10/18/19 at 07:44; Stop 10/18/19 at 07:44; Status DC Fentanyl Citrate (Fentanyl 2ml Vial) 100 mcg STK-MED ONCE .ROUTE ; Start 10/18/19 at 07:44; Stop 10/18/19 at 07:44; Status DC Rocuronium Evergreen (Zemuron) 100 mg STK-MED ONCE .ROUTE ; Start 10/18/19 at 07:44; Stop 10/18/19 at 07:44; Status DC Micafungin Sodium 100 mg/Dextrose 100 ml @ 100 mls/hr Q24H IV Last administered on 10/26/19at 08:07; Start 10/18/19 at 08:30 Bupivacaine HCl/ Epinephrine Bitart (Sensorcain-Epi 0.5%-1:[id number] Mpf) 30 ml STK-MED ONCE .ROUTE ; Start 10/18/19 at 08:34; Stop 10/18/19 at 08:35; Status DC Iohexol (Omnipaque 300 Mg/ml) 50 ml STK-MED ONCE .ROUTE Last administered on 10/18/19at 13:30; Start 10/18/19 at 08:35; Stop 10/18/19 at 08:35; Status DC Sodium Chloride 80 meq/Potassium Chloride 30 meq/ Potassium Acetate 30 meq/Magne sium Sulfate 14 meq/ Multivitamins 10 ml/Chromium/ Copper/Manganese/ Seleni/Zn 1 ml/ Insulin Human Regular 15 unit/ Total Parenteral Nutrition/Amino Acids/Dextrose/ Fat Emulsion Intravenous 1,920 ml @ 80 mls/hr TPN CONT IV Last administered on 10/19/19at 01:22; Start 10/18/19 at 22:00; Stop 10/19/19 at 21:59; Status DC Phenylephrine HCl (Brayden-Synephrine Inj) 10 mg STK-MED ONCE .ROUTE ; Start 10/18/19 at 10:15; Stop 10/18/19 at 10:15; Status DC Desflurane (Suprane) 90 ml STK-MED ONCE IH ; Start 10/18/19 at 10:18; Stop 10/18/19 at 10:19; Status DC Albumin Human 500 ml @ As Directed STK-MED ONCE IV ; Start 10/18/19 at 11:06; Stop 10/18/19 at 11:06; Status DC Vasopressin (Vasostrict) 20 unit STK-MED ONCE .ROUTE ; Start 10/18/19 at 12:23; Stop 10/18/19 at 12:23; Status DC Phenylephrine HCl (Brayden-Synephrine Inj) 10 mg STK-MED ONCE .ROUTE ; Start 10/18/19 at 13:33; Stop 10/18/19 at 13:33; Status DC Phenylephrine HCl (Brayden-Synephrine Inj) 10 mg STK-MED ONCE .ROUTE ; Start 10/18/19 at 13:33; Stop 10/18/19 at 13:33; Status DC Ondansetron HCl (Zofran) 4 mg STK-MED ONCE .ROUTE ; Start 10/18/19 at 13:33; Stop 10/18/19 at 13:33; Status DC Enoxaparin Sodium (Lovenox 40mg Syringe) 40 mg Q24H SQ Last administered on 10/26/19at 08:08; Start 10/19/19 at 08:00 Sodium Chloride (Normal Saline Flush) 3 ml QSHIFT PRN IV AFTER MEDS AND BLOOD DRAWS; Start 10/18/19 at 14:45 Naloxone HCl (Narcan) 0.4 mg PRN Q2MIN PRN IV SEE INSTRUCTIONS; Start 10/18/19 at 14:45 Sodium Chloride 1,000 ml @ 25 mls/hr Q24H IV Last administered on 10/25/19at 21:31; Start 10/18/19 at 14:33 Morphine Sulfate (Morphine Sulfate) 1 mg PRN Q1HR PRN IV PAIN; Start 10/18/19 at 14:45 Midazolam HCl 100 mg/Sodium Chloride 100 ml @ 1 mls/hr CONT PRN IV SEE I/O RECORD Last administered on 10/21/19at 18:48; Start 10/18/19 at 14:45 Phenylephrine HCl (PHENYLEPHRINE in 0.9% NACL PF) 1 mg STK-MED ONCE IV ; Start 10/18/19 at 14:44; Stop 10/18/19 at 14:45; Status DC Ephedrine Sulfate (ePHEDrine PF IN SALINE SYRINGE) 50 mg STK-MED ONCE IV ; Start 10/18/19 at 14:45; Stop 10/18/19 at 14:45; Status DC Vasopressin 20 unit/Dextrose 101 ml @ 12 mls/hr CONT PRN IV SEE I/O RECORD Last administered on 10/25/19at 04:17; Start 10/18/19 at 15:30 Sodium Chloride 1,000 ml @ 1,000 mls/hr 1X ONCE IV Last administered on 10/18/19at 15:42; Start 10/18/19 at 15:45; Stop 10/18/19 at 16:44; Status DC Albumin Human 500 ml @ 125 mls/hr 1X ONCE IV ; Start 10/18/19 at 16:00; Stop 10/18/19 at 19:59; Status DC Albumin Human 500 ml @ 125 mls/hr PRN Q1HR PRN IV PER PROTOCOL; Start 10/18/19 at 15:45 Magnesium Sulfate 50 ml @ 25 mls/hr 1X ONCE IV Last administered on 10/18/19at 17:02; Start 10/18/19 at 16:30; Stop 10/18/19 at 18:29; Status DC Sodium Bicarbonate (Sodium Bicarb Adult 8.4% Syr) 50 meq STK-MED ONCE .ROUTE ; Start 10/18/19 at 16:20; Stop 10/18/19 at 16:20; Status DC Sodium Bicarbonate (Sodium Bicarb Adult 8.4% Syr) 100 meq 1X ONCE IV Last administered on 10/18/19at 17:07; Start 10/18/19 at 16:30; Stop 10/18/19 at 16:31; Status DC Sodium Bicarbonate 150 meq/Dextrose 1,150 ml @ 75 mls/hr 1X ONCE IV Last administered on 10/18/19at 20:02; Start 10/18/19 at 16:30; Stop 10/19/19 at 07:49; Status DC Sodium Chloride 80 meq/Potassium Chloride 30 meq/ Potassium Acetate 30 meq/Magnesium Sulfate 14 meq/ Multivitamins 10 ml/Chromium/ Copper/Manganese/ Seleni/Zn 1 ml/ Insulin Human Regular 15 unit/ Total Parenteral Nutrition/Amino Acids/Dextrose/ Fat Emulsion Intravenous 1,920 ml @ 80 mls/hr TPN CONT IV Last administered on 10/19/19at 23:05; Start 10/19/19 at 22:00; Stop 10/20/19 at 21:59; Status DC Sodium Chloride 100 meq/Potassium Chloride 30 meq/ Potassium Acetate 30 meq/Magnesium Sulfate 12 meq/ Multivitamins 10 ml/Chromium/ Copper/Manganese/ Seleni/Zn 1 ml/ Insulin Human Regular 15 unit/ Total Parenteral Nutrition/Amino Acids/Dextrose/ Fat Emulsion Intravenous 1,920 ml @ 80 mls/hr TPN CONT IV Last administered on 10/20/19at 21:52; Start 10/20/19 at 22:00; Stop 10/21/19 at 21:59; Status DC Sodium Chloride 100 meq/Potassium Chloride 30 meq/ Potassium Acetate 30 meq/Magnesium Sulfate 12 meq/ Multivitamins 10 ml/Chromium/ Copper/Manganese/ Seleni/Zn 1 ml/ Insulin Human Regular 15 unit/ Total Parenteral Nutrition/Amino Acids/Dextrose/ Fat Emulsion Intravenous 1,920 ml @ 80 mls/hr TPN CONT IV Last administered on 10/21/19at 21:46; Start 10/21/19 at 22:00; Stop 10/22/19 at 21:59; Status DC Sodium Chloride 100 meq/Potassium Chloride 30 meq/ Potassium Acetate 30 meq/Magnesium Sulfate 12 meq/ Multivitamins 10 ml/Chromium/ Copper/Manganese/ Seleni/Zn 1 ml/ Insulin Human Regular 15 unit/ Total Parenteral Nutrition/Amino Acids/Dextrose/ Fat Emulsion Intravenous 1,800 ml @ 75 mls/hr TPN CONT IV Last administered on 10/22/19at 22:04; Start 10/22/19 at 22:00; Stop 10/23/19 at 21:59; Status DC Fentanyl Citrate 55 ml @ 0 mls/hr CONT PRN IV SEE COMMENTS Last administered on 10/24/19at 23:55; Start 10/22/19 at 13:00 Sodium Chloride 100 meq/Potassium Chloride 30 meq/ Potassium Acetate 30 meq/Magnesium Sulfate 12 meq/ Multivitamins 10 ml/Chromium/ Copper/Manganese/ Seleni/Zn 1 ml/ Insulin Human Regular 15 unit/ Total Parenteral Nutrition/Amino Acids/Dextrose/ Fat Emulsion Intravenous 1,680 ml @ 70 mls/hr TPN CONT IV Last administered on 10/23/19at 21:23; Start 10/23/19 at 22:00; Stop 10/24/19 at 21:59; Status DC Sodium Chloride 110 meq/Potassium Chloride 30 meq/ Potassium Acetate 30 meq/Magnesium Sulfate 15 meq/ Multivitamins 10 ml/Chromium/ Copper/Manganese/ Seleni/Zn 1 ml/ Insulin Human Regular 15 unit/ Total Parenteral Nutrition/Amino Acids/Dextrose/ Fat Emulsion Intravenous 1,680 ml @ 70 mls/hr TPN CONT IV Last administered on 10/24/19at 21:48; Start 10/24/19 at 22:00; Stop 10/25/19 at 21:59; Status DC Sodium Chloride 110 meq/Potassium Chloride 30 meq/ Potassium Acetate 30 meq/Magnesium Sulfate 15 meq/ Multivitamins 10 ml/Chromium/ Copper/Manganese/ Seleni/Zn 1 ml/ Insulin Human Regular 15 unit/ Total Parenteral Nutrition/Amino Acids/Dextrose/ Fat Emulsion Intravenous 1,680 ml @ 70 mls/hr TPN CONT IV Last administered on 10/25/19at 21:33; Start 10/25/19 at 22:00; Stop 10/26/19 at 21:59 Active Scripts Active Reported Bisoprolol Fumarate 5 Mg Tablet 10 Mg PO DAILY Vitals/I & O Vital Sign - Last 24 Hours 10/25/19 10/25/19 10/25/19 10/25/19 10:00 11:00 12:00 12:00 Temp 96.9 96.9 Pulse 86 105 112 Resp 14 14 14 B/P (MAP) 131/73 (92) 109/56 (73) 122/79 (93) Pulse Ox 100 100 99 O2 Delivery Ventilator Ventilator Ventilator Mechanical Ventilator 10/25/19 10/25/19 10/25/19 10/25/19 12:05 13:00 14:00 15:00 Pulse 107 103 104 Resp 14 14 14 B/P (MAP) 111/66 (81) 119/76 (90) 119/66 (83) Pulse Ox 100 100 100 99 O2 Delivery Ventilator Ventilator Ventilator Ventilator 10/25/19 10/25/19 10/25/19 10/25/19 15:16 16:00 16:00 17:00 Temp 97.8 97.8 Pulse 107 102 Resp 14 26 B/P (MAP) 110/64 (79) 99/54 (69) Pulse Ox 99 99 98 O2 Delivery Ventilator Mechanical Ventilator Ventilator Ventilator 10/25/19 10/25/19 10/25/19 10/25/19 18:00 18:10 19:00 20:00 Temp 98.5 98.5 Pulse 97 103 107 Resp 24 18 21 B/P (MAP) 95/52 (66) 104/55 (71) 111/70 (84) Pulse Ox 99 100 99 99 O2 Delivery Ventilator Ventilator Ventilator Ventilator 10/25/19 10/25/19 10/25/19 10/25/19 20:00 20:21 21:00 22:00 Pulse 112 114 Resp 17 17 B/P (MAP) 131/81 (98) 127/74 (91) Pulse Ox 99 99 99 O2 Delivery Mechanical Ventilator Ventilator Ventilator Ventilator 10/25/19 10/25/19 10/26/19 10/26/19 23:00 23:43 00:00 00:00 Temp 98.3 98.3 Pulse 114 103 Resp 22 24 B/P (MAP) 139/55 (83) 107/57 (74) Pulse Ox 100 99 99 O2 Delivery Ventilator Ventilator Ventilator Mechanical Ventilator 10/26/19 10/26/19 10/26/19 10/26/19 01:00 02:00 03:00 03:53 Pulse 109 112 112 Resp 24 18 18 B/P (MAP) 135/77 (96) 123/77 (92) 123/77 (92) Pulse Ox 99 100 100 100 O2 Delivery Ventilator Ventilator Ventilator Ventilator 10/26/19 10/26/19 10/26/19 10/26/19 04:00 04:00 05:00 06:00 Temp 98.7 98.7 Pulse 112 112 107 Resp 18 20 B/P (MAP) 133/74 (93) 134/81 (98) 136/70 (92) Pulse Ox 100 100 100 O2 Delivery Mechanical Ventilator Ventilator Ventilator Ventilator 10/26/19 10/26/19 07:00 08:27 Pulse 109 Resp 16 B/P (MAP) 140/81 (100) Pulse Ox 100 100 O2 Delivery Ventilator Ventilator Intake and Output 10/25/19 10/25/19 10/26/19 15:00 23:00 07:00 Intake Total 270 ml 2141.9 ml 833.7 ml Output Total 1370 ml 1310 ml 1170 ml Balance -1100 ml 831.9 ml -336.3 ml Justicifation of Admission Dx: Justifications for Admission: Justification of Admission Dx: Yes DAVIN LANDEROS MD Oct 26, 2019 09:06
--- NOTE | 2019-10-26 10:27 | PDOC ---
SURGICAL PROGRESS NOTE Subjective asleep during visit Vital Signs Vital Signs Date Time Temp Pulse Resp B/P (MAP) Pulse Ox O2 Delivery O2 Flow Rate FiO2 10/26/19 09:00 115 24 135/67 (89) 100 Ventilator 10/26/19 08:00 99.4 99.4 I&O Intake and Output 10/26/19 07:00 Intake Total 3245.6 ml Output Total 3850 ml Balance -604.4 ml IV Total 2500.6 ml Tube Feeding 645 ml Other 100 ml Output Urine Total 3325 ml Gastric Drainage Total 0 ml Drainage Total 525 ml PATIENT HAS A ROSARIO: Yes General: Cooperative, No acute distress HEENT: Other (trach in place) Abdomen: Soft, Other (multiple drains ) Labs Laboratory Tests Test 10/24/19 11:56 10/24/19 16:51 10/25/19 00:00 10/25/19 05:20 Glucose (Fingerstick) 154 mg/dL (70-99) 153 mg/dL (70-99) 123 mg/dL (70-99) White Blood Count 15.0 x10^3/uL (4.0-11.0) Red Blood Count 2.54 x10^6/uL (3.50-5.40) Hemoglobin 7.5 g/dL (12.0-15.5) Hematocrit 22.5 % (36.0-47.0) Mean Corpuscular Volume 89 fL (79-100) Mean Corpuscular Hemoglobin 30 pg (25-35) Mean Corpuscular Hemoglobin Concent 33 g/dL (31-37) Red Cell Distribution Width 14.8 % (11.5-14.5) Platelet Count 414 x10^3/uL (140-400) Neutrophils (%) (Auto) 86 % (31-73) Lymphocytes (%) (Auto) 7 % (24-48) Monocytes (%) (Auto) 6 % (0-9) Eosinophils (%) (Auto) 1 % (0-3) Basophils (%) (Auto) 0 % (0-3) Neutrophils # (Auto) 12.9 x10^3/uL (1.8-7.7) Lymphocytes # (Auto) 1.0 x10^3/uL (1.0-4.8) Monocytes # (Auto) 0.9 x10^3/uL (0.0-1.1) Eosinophils # (Auto) 0.2 x10^3/uL (0.0-0.7) Basophils # (Auto) 0.0 x10^3/uL (0.0-0.2) Test 10/25/19 05:32 10/25/19 12:21 10/25/19 17:50 10/26/19 00:45 Glucose (Fingerstick) 159 mg/dL (70-99) 164 mg/dL (70-99) 135 mg/dL (70-99) 186 mg/dL (70-99) Test 10/26/19 06:20 10/26/19 06:24 White Blood Count 15.4 x10^3/uL (4.0-11.0) Red Blood Count 2.95 x10^6/uL (3.50-5.40) Hemoglobin 8.7 g/dL (12.0-15.5) Hematocrit 26.3 % (36.0-47.0) Mean Corpuscular Volume 89 fL (79-100) Mean Corpuscular Hemoglobin 30 pg (25-35) Mean Corpuscular Hemoglobin Concent 33 g/dL (31-37) Red Cell Distribution Width 15.1 % (11.5-14.5) Platelet Count 597 x10^3/uL (140-400) Neutrophils (%) (Auto) 83 % (31-73) Lymphocytes (%) (Auto) 9 % (24-48) Monocytes (%) (Auto) 7 % (0-9) Eosinophils (%) (Auto) 1 % (0-3) Basophils (%) (Auto) 0 % (0-3) Neutrophils # (Auto) 12.8 x10^3/uL (1.8-7.7) Lymphocytes # (Auto) 1.4 x10^3/uL (1.0-4.8) Monocytes # (Auto) 1.0 x10^3/uL (0.0-1.1) Eosinophils # (Auto) 0.2 x10^3/uL (0.0-0.7) Basophils # (Auto) 0.0 x10^3/uL (0.0-0.2) Sodium Level 143 mmol/L (136-145) Potassium Level 4.2 mmol/L (3.5-5.1) Chloride Level 109 mmol/L (98-107) Carbon Dioxide Level 31 mmol/L (21-32) Anion Gap 3 (6-14) Blood Urea Nitrogen 15 mg/dL (7-20) Creatinine 0.5 mg/dL (0.6-1.0) Estimated GFR (Cockcroft-Gault) 131.1 BUN/Creatinine Ratio 30 (6-20) Glucose Level 139 mg/dL (70-99) Calcium Level 10.2 mg/dL (8.5-10.1) Total Bilirubin 0.2 mg/dL (0.2-1.0) Aspartate Amino Transf (AST/SGOT) 25 U/L (15-37) Alanine Aminotransferase (ALT/SGPT) 37 U/L (14-59) Alkaline Phosphatase 239 U/L (46-116) Total Protein 5.1 g/dL (6.4-8.2) Albumin 1.1 g/dL (3.4-5.0) Albumin/Globulin Ratio 0.3 (1.0-1.7) Glucose (Fingerstick) 134 mg/dL (70-99) Laboratory Tests Test 10/25/19 12:21 10/25/19 17:50 10/26/19 00:45 10/26/19 06:20 Glucose (Fingerstick) 164 mg/dL (70-99) 135 mg/dL (70-99) 186 mg/dL (70-99) White Blood Count 15.4 x10^3/uL (4.0-11.0) Red Blood Count 2.95 x10^6/uL (3.50-5.40) Hemoglobin 8.7 g/dL (12.0-15.5) Hematocrit 26.3 % (36.0-47.0) Mean Corpuscular Volume 89 fL (79-100) Mean Corpuscular Hemoglobin 30 pg (25-35) Mean Corpuscular Hemoglobin Concent 33 g/dL (31-37) Red Cell Distribution Width 15.1 % (11.5-14.5) Platelet Count 597 x10^3/uL (140-400) Neutrophils (%) (Auto) 83 % (31-73) Lymphocytes (%) (Auto) 9 % (24-48) Monocytes (%) (Auto) 7 % (0-9) Eosinophils (%) (Auto) 1 % (0-3) Basophils (%) (Auto) 0 % (0-3) Neutrophils # (Auto) 12.8 x10^3/uL (1.8-7.7) Lymphocytes # (Auto) 1.4 x10^3/uL (1.0-4.8) Monocytes # (Auto) 1.0 x10^3/uL (0.0-1.1) Eosinophils # (Auto) 0.2 x10^3/uL (0.0-0.7) Basophils # (Auto) 0.0 x10^3/uL (0.0-0.2) Sodium Level 143 mmol/L (136-145) Potassium Level 4.2 mmol/L (3.5-5.1) Chloride Level 109 mmol/L (98-107) Carbon Dioxide Level 31 mmol/L (21-32) Anion Gap 3 (6-14) Blood Urea Nitrogen 15 mg/dL (7-20) Creatinine 0.5 mg/dL (0.6-1.0) Estimated GFR (Cockcroft-Gault) 131.1 BUN/Creatinine Ratio 30 (6-20) Glucose Level 139 mg/dL (70-99) Calcium Level 10.2 mg/dL (8.5-10.1) Total Bilirubin 0.2 mg/dL (0.2-1.0) Aspartate Amino Transf (AST/SGOT) 25 U/L (15-37) Alanine Aminotransferase (ALT/SGPT) 37 U/L (14-59) Alkaline Phosphatase 239 U/L (46-116) Total Protein 5.1 g/dL (6.4-8.2) Albumin 1.1 g/dL (3.4-5.0) Albumin/Globulin Ratio 0.3 (1.0-1.7) Test 10/26/19 06:24 Glucose (Fingerstick) 134 mg/dL (70-99) Problem List Problems Medical Problems: (1) Acute pancreatitis Status: Acute (2) Cholelithiasis Status: Acute Assessment/Plan continue care Justicifation of Admission Dx: Justifications for Admission: Justification of Admission Dx: Yes 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 [employer] Oct 26, 2019 10:27
--- NOTE | 2019-10-26 11:11 | PDOC ---
G I PROGRESS NOTE Subjective Asleep on ventilator. Did not awaken. Physical Exam Trached Tachy. Abdomen with multiple drains. Output from larger drains shows downward trend. Path noted. Review of Relevant I have reviewed the following items kolby (where applicable) has been applied. Labs Laboratory Tests Test 10/24/19 11:56 10/24/19 16:51 10/25/19 00:00 10/25/19 05:20 Glucose (Fingerstick) 154 mg/dL (70-99) 153 mg/dL (70-99) 123 mg/dL (70-99) White Blood Count 15.0 x10^3/uL (4.0-11.0) Red Blood Count 2.54 x10^6/uL (3.50-5.40) Hemoglobin 7.5 g/dL (12.0-15.5) Hematocrit 22.5 % (36.0-47.0) Mean Corpuscular Volume 89 fL (79-100) Mean Corpuscular Hemoglobin 30 pg (25-35) Mean Corpuscular Hemoglobin Concent 33 g/dL (31-37) Red Cell Distribution Width 14.8 % (11.5-14.5) Platelet Count 414 x10^3/uL (140-400) Neutrophils (%) (Auto) 86 % (31-73) Lymphocytes (%) (Auto) 7 % (24-48) Monocytes (%) (Auto) 6 % (0-9) Eosinophils (%) (Auto) 1 % (0-3) Basophils (%) (Auto) 0 % (0-3) Neutrophils # (Auto) 12.9 x10^3/uL (1.8-7.7) Lymphocytes # (Auto) 1.0 x10^3/uL (1.0-4.8) Monocytes # (Auto) 0.9 x10^3/uL (0.0-1.1) Eosinophils # (Auto) 0.2 x10^3/uL (0.0-0.7) Basophils # (Auto) 0.0 x10^3/uL (0.0-0.2) Test 10/25/19 05:32 10/25/19 12:21 10/25/19 17:50 10/26/19 00:45 Glucose (Fingerstick) 159 mg/dL (70-99) 164 mg/dL (70-99) 135 mg/dL (70-99) 186 mg/dL (70-99) Test 10/26/19 06:20 10/26/19 06:24 White Blood Count 15.4 x10^3/uL (4.0-11.0) Red Blood Count 2.95 x10^6/uL (3.50-5.40) Hemoglobin 8.7 g/dL (12.0-15.5) Hematocrit 26.3 % (36.0-47.0) Mean Corpuscular Volume 89 fL (79-100) Mean Corpuscular Hemoglobin 30 pg (25-35) Mean Corpuscular Hemoglobin Concent 33 g/dL (31-37) Red Cell Distribution Width 15.1 % (11.5-14.5) Platelet Count 597 x10^3/uL (140-400) Neutrophils (%) (Auto) 83 % (31-73) Lymphocytes (%) (Auto) 9 % (24-48) Monocytes (%) (Auto) 7 % (0-9) Eosinophils (%) (Auto) 1 % (0-3) Basophils (%) (Auto) 0 % (0-3) Neutrophils # (Auto) 12.8 x10^3/uL (1.8-7.7) Lymphocytes # (Auto) 1.4 x10^3/uL (1.0-4.8) Monocytes # (Auto) 1.0 x10^3/uL (0.0-1.1) Eosinophils # (Auto) 0.2 x10^3/uL (0.0-0.7) Basophils # (Auto) 0.0 x10^3/uL (0.0-0.2) Sodium Level 143 mmol/L (136-145) Potassium Level 4.2 mmol/L (3.5-5.1) Chloride Level 109 mmol/L (98-107) Carbon Dioxide Level 31 mmol/L (21-32) Anion Gap 3 (6-14) Blood Urea Nitrogen 15 mg/dL (7-20) Creatinine 0.5 mg/dL (0.6-1.0) Estimated GFR (Cockcroft-Gault) 131.1 BUN/Creatinine Ratio 30 (6-20) Glucose Level 139 mg/dL (70-99) Calcium Level 10.2 mg/dL (8.5-10.1) Total Bilirubin 0.2 mg/dL (0.2-1.0) Aspartate Amino Transf (AST/SGOT) 25 U/L (15-37) Alanine Aminotransferase (ALT/SGPT) 37 U/L (14-59) Alkaline Phosphatase 239 U/L (46-116) Total Protein 5.1 g/dL (6.4-8.2) Albumin 1.1 g/dL (3.4-5.0) Albumin/Globulin Ratio 0.3 (1.0-1.7) Glucose (Fingerstick) 134 mg/dL (70-99) Laboratory Tests Test 10/25/19 12:21 10/25/19 17:50 10/26/19 00:45 10/26/19 06:20 Glucose (Fingerstick) 164 mg/dL (70-99) 135 mg/dL (70-99) 186 mg/dL (70-99) White Blood Count 15.4 x10^3/uL (4.0-11.0) Red Blood Count 2.95 x10^6/uL (3.50-5.40) Hemoglobin 8.7 g/dL (12.0-15.5) Hematocrit 26.3 % (36.0-47.0) Mean Corpuscular Volume 89 fL (79-100) Mean Corpuscular Hemoglobin 30 pg (25-35) Mean Corpuscular Hemoglobin Concent 33 g/dL (31-37) Red Cell Distribution Width 15.1 % (11.5-14.5) Platelet Count 597 x10^3/uL (140-400) Neutrophils (%) (Auto) 83 % (31-73) Lymphocytes (%) (Auto) 9 % (24-48) Monocytes (%) (Auto) 7 % (0-9) Eosinophils (%) (Auto) 1 % (0-3) Basophils (%) (Auto) 0 % (0-3) Neutrophils # (Auto) 12.8 x10^3/uL (1.8-7.7) Lymphocytes # (Auto) 1.4 x10^3/uL (1.0-4.8) Monocytes # (Auto) 1.0 x10^3/uL (0.0-1.1) Eosinophils # (Auto) 0.2 x10^3/uL (0.0-0.7) Basophils # (Auto) 0.0 x10^3/uL (0.0-0.2) Sodium Level 143 mmol/L (136-145) Potassium Level 4.2 mmol/L (3.5-5.1) Chloride Level 109 mmol/L (98-107) Carbon Dioxide Level 31 mmol/L (21-32) Anion Gap 3 (6-14) Blood Urea Nitrogen 15 mg/dL (7-20) Creatinine 0.5 mg/dL (0.6-1.0) Estimated GFR (Cockcroft-Gault) 131.1 BUN/Creatinine Ratio 30 (-20) Glucose Level 139 mg/dL (70-99) Calcium Level 10.2 mg/dL (8.5-10.1) Total Bilirubin 0.2 mg/dL (0.2-1.0) Aspartate Amino Transf (AST/SGOT) 25 U/L (15-37) Alanine Aminotransferase (ALT/SGPT) 37 U/L (14-59) Alkaline Phosphatase 239 U/L (46-116) Total Protein 5.1 g/dL (6.4-8.2) Albumin 1.1 g/dL (3.4-5.0) Albumin/Globulin Ratio 0.3 (1.0-1.7) Test 10/26/19 06:24 Glucose (Fingerstick) 134 mg/dL (70-99) Microbiology 10/18/19 Gram Stain - Final, Complete 10/18/19 Aerobic and Anaerobic Culture - Final, Complete 10/18/19 Antimicrobic Susceptibility - Final, Complete 10/16/19 Blood Culture - Final, Complete NO GROWTH AFTER 5 DAYS 10/03/19 Gram Stain - Final, Complete 10/03/19 Aerobic and Anaerobic Culture - Final, Complete 10/01/19 Gram Stain Evaluation - Final, Complete 10/01/19 Respiratory Culture - Final, Complete 10/01/19 Antimicrobic Susceptibility - Final, Complete 09/25/19 Urine Culture - Final, Complete 09/17/19 Gram Stain - Final, Complete 09/17/19 Aerobic Culture - Final, Complete Vitals/I & O Vital Sign - Last 24 Hours 10/25/19 10/25/19 10/25/19 10/25/19 12:00 12:00 12:05 13:00 Temp 96.9 96.9 Pulse 112 107 Resp 14 14 B/P (MAP) 122/79 (93) 111/66 (81) Pulse Ox 99 100 100 O2 Delivery Ventilator Mechanical Ventilator Ventilator Ventilator 10/25/19 10/25/19 10/25/19 10/25/19 14:00 15:00 15:16 16:00 Pulse 103 104 Resp 14 14 B/P (MAP) 119/76 (90) 119/66 (83) Pulse Ox 100 99 99 O2 Delivery Ventilator Ventilator Ventilator Mechanical Ventilator 10/25/19 10/25/19 10/25/19 10/25/19 16:00 17:00 18:00 18:10 Temp 97.8 97.8 Pulse 107 102 97 Resp 14 26 24 B/P (MAP) 110/64 (79) 99/54 (69) 95/52 (66) Pulse Ox 99 98 99 100 O2 Delivery Ventilator Ventilator Ventilator Ventilator 10/25/19 10/25/19 10/25/19 10/25/19 19:00 20:00 20:00 20:21 Temp 98.5 98.5 Pulse 103 107 Resp 18 21 B/P (MAP) 104/55 (71) 111/70 (84) Pulse Ox 99 99 99 O2 Delivery Ventilator Ventilator Mechanical Ventilator Ventilator 10/25/19 10/25/19 10/25/19 10/25/19 21:00 22:00 23:00 23:43 Pulse 112 114 114 Resp 17 17 22 B/P (MAP) 131/81 (98) 127/74 (91) 139/55 (83) Pulse Ox 99 99 100 99 O2 Delivery Ventilator Ventilator Ventilator Ventilator 10/26/19 10/26/19 10/26/19 10/26/19 00:00 00:00 01:00 02:00 Temp 98.3 98.3 Pulse 103 109 112 Resp 24 24 18 B/P (MAP) 107/57 (74) 135/77 (96) 123/77 (92) Pulse Ox 99 99 100 O2 Delivery Ventilator Mechanical Ventilator Ventilator Ventilator 10/26/19 10/26/19 10/26/19 10/26/19 03:00 03:53 04:00 04:00 Temp 98.7 98.7 Pulse 112 112 Resp 18 18 B/P (MAP) 123/77 (92) 133/74 (93) Pulse Ox 100 100 100 O2 Delivery Ventilator Ventilator Mechanical Ventilator Ventilator 10/26/19 10/26/19 10/26/19 10/26/19 05:00 06:00 07:00 08:00 Pulse 112 107 109 Resp 23 20 16 B/P (MAP) 134/81 (98) 136/70 (92) 140/81 (100) Pulse Ox 100 100 100 O2 Delivery Ventilator Ventilator Ventilator Mechanical Ventilator 10/26/19 10/26/19 10/26/19 10/26/19 08:00 08:27 09:00 10:00 Temp 99.4 99.4 Pulse 116 115 110 Resp 18 24 45 B/P (MAP) 149/94 (112) 135/67 (89) 126/69 (88) Pulse Ox 100 100 100 100 O2 Delivery Ventilator Ventilator Ventilator Ventilator Intake and Output 10/25/19 10/25/19 10/26/19 15:00 23:00 07:00 Intake Total 270 ml 2141.9 ml 833.7 ml Output Total 1370 ml 1310 ml 1170 ml Balance -1100 ml 831.9 ml -336.3 ml Problem List Problems Medical Problems: (1) Acute pancreatitis Status: Acute (2) Cholelithiasis Status: Acute Assessment Biliary pancreatitis, post necrosectomy/ronel. Remains critically ill. Plan of Care Note Continue support. Justicifation of Admission Dx: Justifications for Admission: Justification of Admission Dx: Yes MARY RIVAS MD Oct 26, 2019 11:10
--- NOTE | 2019-10-26 13:09 | NUR ---
SS following up with discharge planning. SS reviewed pt chart and discussed with pt RN. Pt is now on trach collar. Pt on TPN, Micafungin, and Meropenem. All drains and tubes remain at this time. Pt has J tube and Chest tube. Pt has three KAYLIN drains and two Mook drains. Pt is self pay pt. SS will continue to follow for discharge planning.
[2019-10-26] MEDS: TPN PER PHARMACY MC PRN (13:27)
--- NOTE | 2019-10-26 13:30 | NUR ---
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, 8 inches Weight: 95.0 kg Current diet: NPO LABS: Sodium: 143 Potassium: 1.2 Chloride: 109 Calcium: 10.2 Corrected Calcium: 12.68 Magnesium: 1.8 CO2: 31 SCr: 0.6 Glucose: 134-186 Albumin: 0.9 AST: 25 ALT: 37 TPN FORMULA: TPN TYPE: Central Continuous AMINO ACIDS: 80 gm DEXTROSE: 250 gm LIPIDS: 20 gm SODIUM CHLORIDE: 110 mEq SODIUM ACETATE: - mEq SODIUM PHOSPHATE: - mmol POTASSIUM CHLORIDE: 30 mEq POTASSIUM ACETATE: 30 mEq POTASSIUM PHOSPHATE: - mmol MAGNESIUM: 15 mEq CALCIUM: - mEq INSULIN: 15 units MULTIPLE VITAMIN: 10 ml TRACE ELEMENTS: 1 ml ml(s) TPN PLAN: Labs stable. Per dietary rec, stop TPN when TF up to 45 ml/hr. Currently at 40 ml/hr. BMP in AM. R: Continue TPN ABOVE. Will monitor electrolytes, glucose, and tolerance to TPN. CHRISTIAN VALLEJO [facility], 10/26/19 [id number]
--- NOTE | 2019-10-26 16:13 | NUR ---
PT/OT at bedside working with pt. Pt sat at the edge of bed, on 10L/40% trach shield. Tolerated well. All tubes secured.
--- NOTE | 2019-10-26 16:33 | NUR ---
Wound Care Incisional wound vac changed over the midline incision. Gomez in place with scant drainage at base of incision. Periwound draped, contact layer placed over incision line with silver foam at 125 mmHg continuous suction. Reinforced placed drain sponges. Pt continues to exhibit edema.. Pt on ICU bed, turned to left side with heels floated and all drain tubes adjusted. WC will continue to follow for possible changes.
[2019-10-26] MEDS: CYCLOBENZAPRINE 10 MG TABLET. PO PRN (21:14)
[2019-10-26] MEDS: IV NORMAL SALINE 1000ML BAG 1,000 ML IV SCH (21:15)
[2019-10-26] MEDS ORDERED: AMINO ACID IV SCH ×10 (22:00)
[2019-10-26] MEDS ORDERED: TOTAL PARENTERAL NUTRITION IV SCH ×10 (22:00)
[2019-10-26] MEDS ORDERED: [UNRECOGNIZED DRUG - OTHER] IV SCH ×10 (22:00)
[2019-10-26] MEDS ORDERED: DEXTROSE 70% IV SCH ×10 (22:00)
[2019-10-27] VITALS (20 sets, daily range): BP systolic 109–159; BP diastolic 69–97
[2019-10-27] MEDS: MEROPENEM 500 MG in IV NORMAL SALINE 50ML 50 ML IV SCH ×4 (00:06→17:50)
[2019-10-27] MEDS: IPRATRPIUM/ALBUTEROL 0.5/2.5MG 3 ML NEBU. NEB SCH ×6 (04:23→23:36)
[2019-10-27] MEDS: INSULIN LISPRO 300 UNITS/3 ML VIAL. SQ SCH ×3 (06:00→12:00)
[2019-10-27 06:12] LABS: BASO % 0 % (0-3); EOS # 0.2 x10^3/uL (0.0-0.7); EOS % 2 % (0-3); HEMATOCRIT 23.5 % (36.0-47.0); HEMOGLOBIN 7.9 g/dL (12.0-15.5); LYMPH # 1.1 x10^3/uL (1.0-4.8); LYMPH % 8 % (24-48); MEAN CORPUSCULAR HEMOGLOBIN 30 pg (25-35); MEAN CORPUSCULAR HGB CONC 34 g/dL (31-37); MEAN CORPUSCULAR VOLUME 89 fL (79-100); MONO % 7 % (0-9); NEUT # 11.1 x10^3/uL (1.8-7.7); NEUT % 83 % (31-73); PLATELET COUNT 559 x10^3/uL (140-400); RED BLOOD COUNT 2.64 x10^6/uL (3.50-5.40); RED CELL DISTRIBUTION WIDTH 15.1 % (11.5-14.5); WHITE BLOOD COUNT 13.4 x10^3/uL (4.0-11.0)
[2019-10-27 06:28] LABS: CALCIUM 9.8 mg/dL (8.5-10.1); CREATININE 0.5 mg/dL (0.6-1.0); GFR 131.1; PHOSPHORUS 3.6 mg/dL (2.6-4.7); POTASSIUM 4.2 mmol/L (3.5-5.1)
--- NOTE | 2019-10-27 07:23 | PDOC ---
Infectious Disease Note Subjective Subjective alert and ok- Nodding Occ nausea and pain Remains on ventilator support, FiO2 40% 5 PEEP TPN off vasopressin, off levophed ROS ROS difficult to completely obtain Vital Sign Vital Signs Vital Signs Date Time Temp Pulse Resp B/P (MAP) Pulse Ox O2 Delivery O2 Flow Rate FiO2 10/27/19 06:00 102 31 136/81 (99) 100 Ventilator 10/27/19 04:00 98.5 98.5 10/27/19 02:00 10.0 Physical Exam PHYSICAL EXAM GENERAL: Alert, NAD tired appearing HEENT: Pupils equal, oral cavity dry. + NGT NECK: Tracheostomy LUNGS: Diminished aeration bases, CT on left HEART: S1, S2, regular w/ PVCs ABDOMEN: Sightly more distended, bowel sounds hypoactive, soft, goyal x 2, 3 KAYLIN drains, G-J tube and + wound vac : Lind in place EXTREMITIES: Generalized edema, no cyanosis. SCDs & Podus boots bilaterally SKIN: warm touch. No signs of rash. LUE-PICC without signs of complications LUE art-line out, mottling left forearm about ole art-line site is improving. RP palpable, cap refill brisk. NEURO: alert and some responsive - tracking Labs Lab Laboratory Tests Test 10/26/19 11:52 10/26/19 17:42 10/27/19 00:05 10/27/19 05:35 Glucose (Fingerstick) 163 mg/dL (70-99) 150 mg/dL (70-99) 144 mg/dL (70-99) White Blood Count 13.4 x10^3/uL (4.0-11.0) Red Blood Count 2.64 x10^6/uL (3.50-5.40) Hemoglobin 7.9 g/dL (12.0-15.5) Hematocrit 23.5 % (36.0-47.0) Mean Corpuscular Volume 89 fL (79-100) Mean Corpuscular Hemoglobin 30 pg (25-35) Mean Corpuscular Hemoglobin Concent 34 g/dL (31-37) Red Cell Distribution Width 15.1 % (11.5-14.5) Platelet Count 559 x10^3/uL (140-400) Neutrophils (%) (Auto) 83 % (31-73) Lymphocytes (%) (Auto) 8 % (24-48) Monocytes (%) (Auto) 7 % (0-9) Eosinophils (%) (Auto) 2 % (0-3) Basophils (%) (Auto) 0 % (0-3) Neutrophils # (Auto) 11.1 x10^3/uL (1.8-7.7) Lymphocytes # (Auto) 1.1 x10^3/uL (1.0-4.8) Monocytes # (Auto) 1.0 x10^3/uL (0.0-1.1) Eosinophils # (Auto) 0.2 x10^3/uL (0.0-0.7) Basophils # (Auto) 0.0 x10^3/uL (0.0-0.2) Sodium Level 145 mmol/L (136-145) Potassium Level 4.2 mmol/L (3.5-5.1) Chloride Level 110 mmol/L (98-107) Carbon Dioxide Level 32 mmol/L (21-32) Anion Gap 3 (6-14) Blood Urea Nitrogen 14 mg/dL (7-20) Creatinine 0.5 mg/dL (0.6-1.0) Estimated GFR (Cockcroft-Gault) 131.1 Glucose Level 150 mg/dL (70-99) Calcium Level 9.8 mg/dL (8.5-10.1) Phosphorus Level 3.6 mg/dL (2.6-4.7) Magnesium Level 2.0 mg/dL (1.8-2.4) Test 10/27/19 05:50 Glucose (Fingerstick) 144 mg/dL (70-99) Micro 6/7 GRAM STAIN Final Final GRAM NEGATIVE RODS:MODERATE SQUAMOUS EPI CELL:NOT APPLICABLE PMN (WBCs):RARE YEAST:MODERATE Unless otherwise specified, Testing Performed by: [address] [address] For Inquires, the Physician may contact the Microbiology department at [phone] ANAEROBIC-AEROBIC CULTURE Preliminary Preliminary MANY GRAM NEGATIVE RODS on 09/27/19 at 1154 FINAL ID= [[email or web address]] PSEUDOMONAS AERUGINOSA ANTIMICROBIAL SUSCEPTIBILITY Preliminary Comment NEG ALEXANDRA 56 PSEUDOMONAS AERUGINOSA ANTIBIOTIC RESULT INTERPRETATION AMIKACIN <=16 S AZTREONAM >16 R CEFTAZIDIME >16 R CIPROFLOXACIN <=0.25 S CEFEPIME 16 I CEFTAZIDIME/AVIBACTAM <=4 S GENTAMICIN <=2 S CONTINUED ON NEXT PAGE RUN DATE: 09/29/19 [facility] *LIVE* PAGE 2 RUN TIME: 1016 Specimen Inquiry SPEC: [id number] PATIENT: SCOTT CUELLAR [id number] (Continued) Procedure Result ANTIMICROBIAL SUSCEPTIBILITY Preliminary (continued) LEVOFLOXACIN <=0.5 S MEROPENEM <=1 S PIPERACILLIN/TAZOBACTAM 64 S TOBRAMYCIN <=2 S Unless otherwise specified, Testing Performed by: [facility] [address] [place] [address] For Inquires, the Physician may contact the Microbiology department at [phone] CT Scan 09/23 IMPRESSION: 1. Removal of the percutaneous pigtail drainage catheters since the prior exam. Sequela of pancreatitis with extensive pseudocysts again demonstrated, the right-sided collections are slightly larger since the prior exam, the left-sided collections are stable. See above. 2. Moderate to large left pleural effusion with atelectasis and collapse of most of the left lower lobe, stable. Small right pleural effusion is stable. 3. Gallstone. Objective Assessment Patient with prolonged hospitalization more than 3 months Multiple medical problems Multiple surgical procedures Off Versed 10/21 S/P Exp. Lap, SAURABH, subtotal cholecystectomy with cholangiogram, G-J tube placement & pancreatic necrosectomy on October 17 YEAST/PSA Leukocytosis - mild increase today but all parameters are up Fever intermittently source likely GI Severe protein malnutrition Acute gallstone pancreatitis with persistent necrosis -CT a/p 07/27. Increased ascites. 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 status post KAYLIN drain placement; C. parapsilosis. s/p drain 08/23 + yeast & high amylase; s/p additional drain on 08/25. Drains removed. -08/23. fluid devyn parapsilosis fluid, amylase high - 09/23 showed multiple pseudocysts, slight larger on the right. s/p drains x 3, 09/24. + PSAE (MDRO-R Cefepime, Zosyn ALEXANDRA < 64) and yeast, -09/24 s/p drain replacement x 3; fluid cult PSAE (MDRO), yeast; treated Ascites s/p paracentesis 08/02 & 08/23. C. parapsilosis Cholelithiasis with thickening of the gallbladder wall. JUANA, Hyperkalemia, Metabolic acidosis off dialysis Acute hypoxic resp failure. trach/vent. sputum 09/30 + PSAE (I merrem) Pleural effusions s/p left thoracentesis, 08/29. no culture. s/p left chest tube, 10/02 no growth Hypocalcemia Prediabetes HTN Anemia s/p RBCs Plan Plan of Care PSA from 10/17 I to Meropenem but WBC improving so will try to hold changing abx to Cipro and or Avycaz to try and save potential abx options Monitor Abd distension ? mild increase today continue merrem and micafungin but d/c'd Dapto 10/24 Monitor labs in am wound care /drain management as directed Contact isolation for CRE/MDRO Critically ill D/w nursing WILLY BARAKAT MD Oct 27, 2019 07:23
--- NOTE | 2019-10-27 07:52 | PDOC ---
PROGRESS NOTES Chief Complaint Chief Complaint A/P Acute hypoxic Respiratory failure required mechanical ventilation Tracheostomy bilateral pleural effusions/pulm edema s/p Throacentesis on 10/03/2019 Severe Acute gallstone pancreatitis (not a surgical candidate at this time) with necrosis Acute kidney failure now requiring dialysis Gallstones (Calculus of gallbladder with acute cholecystitis without obstruction) HTN Intractable pain Intractable nausea Covid 19 negative. Acute on chronic anemia EEG: No seizure activityFever - better currently - intermittent could be from underlying pancreatitis blood cults 08/21 - neg so far ? Ileus with vomiting Abd distention - U/S and CT reviewed s/p 0.4 L of opaque, debris-containing ascites was removed 08/23 Acute pancreatitis with persistent necrosis Gallstone pancreatitis with necrosis. -CT A/P 09/23 showed multiple pseudocysts, slight larger on the right. s/p drains x 3, 09/24. + PSAE (MDRO-R Cefepime, Zosyn ALEXANDRA < 64) and yeast, -s/p drain 08/14. C. parapsilosis. s/p drain 08/23 + yeast & high amylase; s/p additional drain on 08/25. Drains removed. Ascites s/p paracentesis 08/02 & 08/23. C. parapsilosis JUANA. off HD. A large fluid collection in the pancreatic bed has slightly decreased in size, described below, the pancreas itself is difficult to visualize, which could be due to necrosis or obscuration of pancreatic parenchyma from the surrounding fluid collection.10/02 - 08/14 status post KAYLIN drain placement + C paropsilosis. s/p additional drains 08/25 Anemia - S/p PRBCs Cholelithiasis with thickening of the gallbladder wall. Leucocytosis improving JUANA, hyperkalemia, Metabolic acidosis off dialysis hypocalcemia Prediabetes HTN s/p trach ESRD on HD Hyperglycemia severe protein-caloric malnutrition Moderate to large left pleural effusion with atelectasis and collapse of most of the left lower lobe, stable Dispo - ICU, critically ill Poor prognosis History of Present Illness History of Present Illness 09/25: IR placed drain on 09/24. 4u PRBC after Hb drop. Hb 8.8 today. Off Levophed this morning. T-max 100.3. Much more lethargic today. CXR with left sided diffuse infiltrates. 6/9: Tachycardic overnight into the 140s. NGT clamped. On BIPAP currently. Drains with serosanguinous discharge. WBC 8, Tmax 99.6F. 09/27: Seen on trach shield in ICU. Hypertensive and tachycardic. Labs stable. blood stained drainage from drains. Afebrile. 09/28: Seen on trach shield in ICU. She is a bit confused, drowsy, but when sitting up is conversational and confusion somewhat clears. She is asking for more pain medication. Stable drains, still very tachy.Na 147 09/29: Patient vomited overnight. Aspirated. Tried to pull her trach out, she was told she would without her trach, she said "I know, I just want to go home". Hb 7.6. Afebrile, still very tachycardic. 1055ml out of right sided KAYLIN drain 09/30: Overnight hypoxic, on BIPAP. CXR with left sided white out lung. Significant mucous plug suctioned by RT with improvement in her ABG after 2 hours this morning. Not really active, tired, lethargic. 890ml out of drains past 24 hours. On vent. D/w daughter bedside. 10/16: To OR for pancreatic necrosectomy, cholecystectomy, lysis of adhesions, gastrostomy tube placement 10/24, awake on vent, weaning sedation, cont other, still with marked drainage 10/25: Still on fentanyl. WBC 15.4, Hb 8.7 Metabolic panel WNL except calcium 10.2 with albumin 1.1. She awakens off sedation, still connected to vent currently. FiO2 40% 5 PEEP, WBC 13.4, Hb 7.9, platelets 551. Still on fentanyl, she is working with PT. prognosis still poor, but improving slowly Vitals Vitals Vital Signs Date Time Temp Pulse Resp B/P (MAP) Pulse Ox O2 Delivery O2 Flow Rate FiO2 10/27/19 06:00 102 31 136/81 (99) 100 Ventilator 10/27/19 04:00 98.5 98.5 10/27/19 02:00 10.0 Physical Exam Physical Exam GENERAL: Alert, NAD tired appearing HEENT: Pupils equal, oral cavity dry. + NGT NECK: Tracheostomy LUNGS: Diminished aeration bases, CT on left HEART: S1, S2, regular w/ PVCs ABDOMEN: Sightly Distended, bowel sounds hypoactive, soft, goyal x 2, 3 KAYLIN drains, G-J tube and + wound vac : Lind in place EXTREMITIES: Generalized edema, no cyanosis. SCDs & Podus boots bilaterally SKIN: warm touch. No signs of rash. LUE-PICC without signs of complications LUE art-line out, mottling left forearm about ole art-line site is improving. RP palpable, cap refill brisk. NEURO: alert and some responsive - tracking General: Cooperative, No acute distress Heart: Regular rate (SR/ST), Other (distant heart sounds) Lungs: Crackles Abdomen: Soft, Other (multiple drains ) Extremities: Other (Diffuse edema) Skin: No rashes, No significant lesion Labs LABS Laboratory Tests Test 10/26/19 11:52 10/26/19 17:42 10/27/19 00:05 10/27/19 05:35 Glucose (Fingerstick) 163 mg/dL (70-99) 150 mg/dL (70-99) 144 mg/dL (70-99) White Blood Count 13.4 x10^3/uL (4.0-11.0) Red Blood Count 2.64 x10^6/uL (3.50-5.40) Hemoglobin 7.9 g/dL (12.0-15.5) Hematocrit 23.5 % (36.0-47.0) Mean Corpuscular Volume 89 fL (79-100) Mean Corpuscular Hemoglobin 30 pg (25-35) Mean Corpuscular Hemoglobin Concent 34 g/dL (31-37) Red Cell Distribution Width 15.1 % (11.5-14.5) Platelet Count 559 x10^3/uL (140-400) Neutrophils (%) (Auto) 83 % (31-73) Lymphocytes (%) (Auto) 8 % (24-48) Monocytes (%) (Auto) 7 % (0-9) Eosinophils (%) (Auto) 2 % (0-3) Basophils (%) (Auto) 0 % (0-3) Neutrophils # (Auto) 11.1 x10^3/uL (1.8-7.7) Lymphocytes # (Auto) 1.1 x10^3/uL (1.0-4.8) Monocytes # (Auto) 1.0 x10^3/uL (0.0-1.1) Eosinophils # (Auto) 0.2 x10^3/uL (0.0-0.7) Basophils # (Auto) 0.0 x10^3/uL (0.0-0.2) Sodium Level 145 mmol/L (136-145) Potassium Level 4.2 mmol/L (3.5-5.1) Chloride Level 110 mmol/L (98-107) Carbon Dioxide Level 32 mmol/L (21-32) Anion Gap 3 (6-14) Blood Urea Nitrogen 14 mg/dL (7-20) Creatinine 0.5 mg/dL (0.6-1.0) Estimated GFR (Cockcroft-Gault) 131.1 Glucose Level 150 mg/dL (70-99) Calcium Level 9.8 mg/dL (8.5-10.1) Phosphorus Level 3.6 mg/dL (2.6-4.7) Magnesium Level 2.0 mg/dL (1.8-2.4) Test 10/27/19 05:50 Glucose (Fingerstick) 144 mg/dL (70-99) Assessment and Plan Assessmemt and Plan Problems Medical Problems: (1) Acute pancreatitis Status: Acute (2) Cholelithiasis Status: Acute Comment Review of Relevant I have reviewed the following items kolby (where applicable) has been applied. Labs Laboratory Tests Test 10/25/19 12:21 10/25/19 17:50 10/26/19 00:45 10/26/19 06:20 Glucose (Fingerstick) 164 mg/dL (70-99) 135 mg/dL (70-99) 186 mg/dL (70-99) White Blood Count 15.4 x10^3/uL (4.0-11.0) Red Blood Count 2.95 x10^6/uL (3.50-5.40) Hemoglobin 8.7 g/dL (12.0-15.5) Hematocrit 26.3 % (36.0-47.0) Mean Corpuscular Volume 89 fL (79-100) Mean Corpuscular Hemoglobin 30 pg (25-35) Mean Corpuscular Hemoglobin Concent 33 g/dL (31-37) Red Cell Distribution Width 15.1 % (11.5-14.5) Platelet Count 597 x10^3/uL (140-400) Neutrophils (%) (Auto) 83 % (31-73) Lymphocytes (%) (Auto) 9 % (24-48) Monocytes (%) (Auto) 7 % (0-9) Eosinophils (%) (Auto) 1 % (0-3) Basophils (%) (Auto) 0 % (0-3) Neutrophils # (Auto) 12.8 x10^3/uL (1.8-7.7) Lymphocytes # (Auto) 1.4 x10^3/uL (1.0-4.8) Monocytes # (Auto) 1.0 x10^3/uL (0.0-1.1) Eosinophils # (Auto) 0.2 x10^3/uL (0.0-0.7) Basophils # (Auto) 0.0 x10^3/uL (0.0-0.2) Sodium Level 143 mmol/L (136-145) Potassium Level 4.2 mmol/L (3.5-5.1) Chloride Level 109 mmol/L (98-107) Carbon Dioxide Level 31 mmol/L (21-32) Anion Gap 3 (6-14) Blood Urea Nitrogen 15 mg/dL (7-20) Creatinine 0.5 mg/dL (0.6-1.0) Estimated GFR (Cockcroft-Gault) 131.1 BUN/Creatinine Ratio 30 (6-20) Glucose Level 139 mg/dL (70-99) Calcium Level 10.2 mg/dL (8.5-10.1) Total Bilirubin 0.2 mg/dL (0.2-1.0) Aspartate Amino Transf (AST/SGOT) 25 U/L (15-37) Alanine Aminotransferase (ALT/SGPT) 37 U/L (14-59) Alkaline Phosphatase 239 U/L (46-116) Total Protein 5.1 g/dL (6.4-8.2) Albumin 1.1 g/dL (3.4-5.0) Albumin/Globulin Ratio 0.3 (1.0-1.7) Test 10/26/19 06:24 10/26/19 11:52 10/26/19 17:42 10/27/19 00:05 Glucose (Fingerstick) 134 mg/dL (70-99) 163 mg/dL (70-99) 150 mg/dL (70-99) 144 mg/dL (70-99) Test 10/27/19 05:35 10/27/19 05:50 White Blood Count 13.4 x10^3/uL (4.0-11.0) Red Blood Count 2.64 x10^6/uL (3.50-5.40) Hemoglobin 7.9 g/dL (12.0-15.5) Hematocrit 23.5 % (36.0-47.0) Mean Corpuscular Volume 89 fL (79-100) Mean Corpuscular Hemoglobin 30 pg (25-35) Mean Corpuscular Hemoglobin Concent 34 g/dL (31-37) Red Cell Distribution Width 15.1 % (11.5-14.5) Platelet Count 559 x10^3/uL (140-400) Neutrophils (%) (Auto) 83 % (31-73) Lymphocytes (%) (Auto) 8 % (24-48) Monocytes (%) (Auto) 7 % (0-9) Eosinophils (%) (Auto) 2 % (0-3) Basophils (%) (Auto) 0 % (0-3) Neutrophils # (Auto) 11.1 x10^3/uL (1.8-7.7) Lymphocytes # (Auto) 1.1 x10^3/uL (1.0-4.8) Monocytes # (Auto) 1.0 x10^3/uL (0.0-1.1) Eosinophils # (Auto) 0.2 x10^3/uL (0.0-0.7) Basophils # (Auto) 0.0 x10^3/uL (0.0-0.2) Sodium Level 145 mmol/L (136-145) Potassium Level 4.2 mmol/L (3.5-5.1) Chloride Level 110 mmol/L (98-107) Carbon Dioxide Level 32 mmol/L (21-32) Anion Gap 3 (6-14) Blood Urea Nitrogen 14 mg/dL (7-20) Creatinine 0.5 mg/dL (0.6-1.0) Estimated GFR (Cockcroft-Gault) 131.1 Glucose Level 150 mg/dL (70-99) Calcium Level 9.8 mg/dL (8.5-10.1) Phosphorus Level 3.6 mg/dL (2.6-4.7) Magnesium Level 2.0 mg/dL (1.8-2.4) Glucose (Fingerstick) 144 mg/dL (70-99) Laboratory Tests Test 10/26/19 11:52 10/26/19 17:42 10/27/19 00:05 10/27/19 05:35 Glucose (Fingerstick) 163 mg/dL (70-99) 150 mg/dL (70-99) 144 mg/dL (70-99) White Blood Count 13.4 x10^3/uL (4.0-11.0) Red Blood Count 2.64 x10^6/uL (3.50-5.40) Hemoglobin 7.9 g/dL (12.0-15.5) Hematocrit 23.5 % (36.0-47.0) Mean Corpuscular Volume 89 fL (79-100) Mean Corpuscular Hemoglobin 30 pg (25-35) Mean Corpuscular Hemoglobin Concent 34 g/dL (31-37) Red Cell Distribution Width 15.1 % (11.5-14.5) Platelet Count 559 x10^3/uL (140-400) Neutrophils (%) (Auto) 83 % (31-73) Lymphocytes (%) (Auto) 8 % (24-48) Monocytes (%) (Auto) 7 % (0-9) Eosinophils (%) (Auto) 2 % (0-3) Basophils (%) (Auto) 0 % (0-3) Neutrophils # (Auto) 11.1 x10^3/uL (1.8-7.7) Lymphocytes # (Auto) 1.1 x10^3/uL (1.0-4.8) Monocytes # (Auto) 1.0 x10^3/uL (0.0-1.1) Eosinophils # (Auto) 0.2 x10^3/uL (0.0-0.7) Basophils # (Auto) 0.0 x10^3/uL (0.0-0.2) Sodium Level 145 mmol/L (136-145) Potassium Level 4.2 mmol/L (3.5-5.1) Chloride Level 110 mmol/L (98-107) Carbon Dioxide Level 32 mmol/L (21-32) Anion Gap 3 (6-14) Blood Urea Nitrogen 14 mg/dL (7-20) Creatinine 0.5 mg/dL (0.6-1.0) Estimated GFR (Cockcroft-Gault) 131.1 Glucose Level 150 mg/dL (70-99) Calcium Level 9.8 mg/dL (8.5-10.1) Phosphorus Level 3.6 mg/dL (2.6-4.7) Magnesium Level 2.0 mg/dL (1.8-2.4) Test 10/27/19 05:50 Glucose (Fingerstick) 144 mg/dL (70-99) Microbiology 10/18/19 Gram Stain - Final, Complete 10/18/19 Aerobic and Anaerobic Culture - Final, Complete 10/18/19 Antimicrobic Susceptibility - Final, Complete 10/16/19 Blood Culture - Final, Complete NO GROWTH AFTER 5 DAYS 10/03/19 Gram Stain - Final, Complete 10/03/19 Aerobic and Anaerobic Culture - Final, Complete 10/01/19 Gram Stain Evaluation - Final, Complete 10/01/19 Respiratory Culture - Final, Complete 10/01/19 Antimicrobic Susceptibility - Final, Complete 09/25/19 Urine Culture - Final, Complete 09/17/19 Gram Stain - Final, Complete 09/17/19 Aerobic Culture - Final, Complete Medications Current Medications Sodium Chloride 1,000 ml @ 1,000 mls/hr Q1H IV Last administered on 07/04/19at 03:00; Start 07/04/19 at 03:00; Stop 07/04/19 at 03:59; Status DC Ondansetron HCl (Zofran) 4 mg 1X ONCE IVP Last administered on 07/04/19at 03:27; Start 07/04/19 at 03:00; Stop 07/04/19 at 03:01; Status DC Morphine Sulfate (Morphine Sulfate) 4 mg 1X ONCE IV ; Start 07/04/19 at 03:00; Stop 07/04/19 at 03:01; Status Cancel Ketorolac Tromethamine (Toradol 30mg Vial) 30 mg 1X ONCE IV Last administered on 07/04/19at 02:54; Start 07/04/19 at 03:00; Stop 07/04/19 at 03:01; Status DC Fentanyl Citrate (Fentanyl 2ml Vial) 25 mcg 1X ONCE IVP Last administered on 07/04/19at 03:23; Start 07/04/19 at 03:30; Stop 07/04/19 at 03:31; Status DC Fentanyl Citrate (Fentanyl 2ml Vial) 100 mcg STK-MED ONCE .ROUTE ; Start 07/04/19 at 03:18; Stop 07/04/19 at 03:18; Status DC Iohexol (Omnipaque 350 Mg/ml) 90 ml 1X ONCE IV Last administered on 07/04/19at 03:25; Start 07/04/19 at 03:30; Stop 07/04/19 at 03:31; Status DC Info (CONTRAST GIVEN -- Rx MONITORING) 1 each PRN DAILY PRN MC SEE COMMENTS; Start 07/04/19 at 03:30; Stop 07/06/19 at 03:29; Status DC Hydromorphone HCl (Dilaudid) 0.5 mg 1X ONCE IV Last administered on 07/04/19at 03:55; Start 07/04/19 at 04:30; Stop 07/04/19 at 04:32; Status DC Ondansetron HCl (Zofran) 4 mg PRN Q8HRS PRN IV NAUSEA/VOMITING 1ST CHOICE; Start 07/04/19 at 05:00; Stop 07/04/19 at 09:27; Status DC Morphine Sulfate (Morphine Sulfate) 2 mg PRN Q2HR PRN IV SEVERE PAIN 7-10 Last administered on 07/05/19at 12:26; Start 07/04/19 at 05:00; Stop 07/05/19 at 14:15; Status DC Sodium Chloride 1,000 ml @ 125 mls/hr Q8H IV Last administered on 07/04/19at 20:56; Start 07/04/19 at 05:00; Stop 07/05/19 at 04:59; Status DC Hydromorphone HCl (Dilaudid) 0.5 mg PRN Q3HRS PRN IV SEVERE PAIN 7-10 Last administered on 07/05/19at 10:06; Start 07/04/19 at 05:00; Stop 07/05/19 at 12:01; Status DC Piperacillin Sod/ Tazobactam Sod 4.5 gm/Sodium Chloride 100 ml @ 200 mls/hr 1X ONCE IV Last administered on 07/04/19at 05:44; Start 07/04/19 at 06:00; Stop 07/04/19 at 06:29; Status DC Ondansetron HCl (Zofran) 4 mg PRN Q4HRS PRN IV NAUSEA/VOMITING 1ST CHOICE Last administered on 10/26/19at 08:07; Start 07/04/19 at 09:30 Insulin Human Lispro (HumaLOG) 0-9 UNITS Q6HRS SQ Last administered on 10/26/19at 11:54; Start 07/04/19 at 09:30 Dextrose (Dextrose 50%-Water Syringe) 12.5 gm PRN Q15MIN PRN IV SEE COMMENTS; Start 07/04/19 at 09:30 Pantoprazole Sodium (PROTONIX VIAL for IV PUSH) 40 mg DAILYAC IVP Last administered on 10/26/19 08:07; Start 07/04/19 at 11:30 Prochlorperazine Edisylate (Compazine) 10 mg PRN Q6HRS PRN IV NAUSEA/VOMITING, 2nd CHOICE Last administered on 10/15/19at 10:53; Start 07/04/19 at 17:45 Atenolol (Tenormin) 100 mg DAILY PO ; Start 07/05/19 at 09:00; Stop 07/04/19 at 20:08; Status DC Metoprolol Tartrate (Lopressor Vial) 2.5 mg Q6HRS IVP Last administered on 07/05/19at 05:51; Start 07/04/19 at 20:15; Stop 07/05/19 at 10:02; Status DC Metoprolol Tartrate (Lopressor Vial) 5 mg Q6HRS IVP Last administered on 07/14/19at 00:12; Start 07/05/19 at 10:15; Stop 07/16/19 at 08:48; Status DC Hydromorphone HCl (Dilaudid) 1 mg PRN Q3HRS PRN IV SEVERE PAIN 7-10 Last administered on 07/11/19at 05:13; Start 07/05/19 at 12:00; Stop 07/19/19 at 00:25; Status DC Lidocaine HCl (Buffered Lidocaine 1%) 3 ml STK-MED ONCE .ROUTE ; Start 07/05/19 at 12:55; Stop 07/05/19 at 12:56; Status DC Albumin Human 500 ml @ 125 mls/hr 1X ONCE IV Last administered on 07/05/19at 14:33; Start 07/05/19 at 14:30; Stop 07/05/19 at 18:32; Status DC Norepinephrine Bitartrate 8 mg/ Dextrose 258 ml @ 17.299 mls/ hr CONT PRN IV PER PROTOCOL Last administered on 08/02/19at 12:48; Start 07/05/19 at 15:30; Stop 08/05/19 at 09:19; Status DC Sodium Chloride 1,000 ml @ 125 mls/hr Q8H IV Last administered on 07/05/19at 21:04; Start 07/05/19 at 16:00; Stop 07/06/19 at 02:42; Status DC Albumin Human 500 ml @ 125 mls/hr PRN BID PRN IV After every 2L NSS & BP < 90mm Last administered on 10/18/19at 16:06; Start 07/05/19 at 16:00; Stop 10/21/19 at 09:30; Status DC Iohexol (Omnipaque 300 Mg/ml) 60 ml 1X ONCE IV Last administered on 07/05/19at 17:20; Start 07/05/19 at 17:00; Stop 07/05/19 at 17:01; Status DC Info (CONTRAST GIVEN -- Rx MONITORING) 1 each PRN DAILY PRN MC SEE COMMENTS; Start 07/05/19 at 17:00; Stop 07/07/19 at 16:59; Status DC Meropenem 1 gm/ Sodium Chloride 100 ml @ 200 mls/hr Q8HRS IV Last administered on 07/06/19at 05:45; Start 07/05/19 at 20:00; Stop 07/06/19 at 08:48; Status DC Furosemide (Lasix) 40 mg 1X ONCE IVP Last administered on 07/05/19at 22:12; Start 07/05/19 at 22:30; Stop 07/05/19 at 22:31; Status DC Calcium Chloride 1000 mg/Sodium Chloride 110 ml @ 220 mls/hr 1X ONCE IV Last administered on 07/05/19at 22:11; Start 07/05/19 at 22:30; Stop 07/05/19 at 22:59; Status DC Albuterol Sulfate (Ventolin Neb Soln) 2.5 mg 1X ONCE NEB Last administered on 07/06/19at 00:56; Start 07/05/19 at 22:30; Stop 07/05/19 at 22:31; Status DC Insulin Human Regular (HumuLIN R VIAL) 5 unit 1X ONCE IV Last administered on 07/05/19at 22:14; Start 07/05/19 at 22:30; Stop 07/05/19 at 22:31; Status DC Magnesium Sulfate 50 ml @ 25 mls/hr 1X ONCE IV Last administered on 07/06/19at 02:57; Start 07/06/19 at 03:00; Stop 07/06/19 at 04:59; Status DC Calcium Gluconate 1000 mg/Sodium Chloride 110 ml @ 220 mls/hr 1X ONCE IV Last administered on 07/06/19at 02:46; Start 07/06/19 at 03:00; Stop 07/06/19 at 03:29; Status DC Sodium Chloride 1,000 ml @ 200 mls/hr Q5H IV Last administered on 07/06/19at 02:46; Start 07/06/19 at 03:00; Stop 07/06/19 at 10:21; Status DC Calcium Gluconate 1000 mg/Sodium Chloride 110 ml @ 220 mls/hr 1X ONCE IV Last administered on 07/06/19at 03:21; Start 07/06/19 at 03:30; Stop 07/06/19 at 03:59; Status DC Sodium Bicarbonate 50 meq/Sodium Chloride 1,050 ml @ 75 mls/hr Q14H IV Last administered on 07/10/19at 21:10; Start 07/06/19 at 07:30; Stop 07/11/19 at 10:28; Status DC Calcium Gluconate 2000 mg/Sodium Chloride 120 ml @ 220 mls/hr 1X ONCE IV Last administered on 07/06/19at 09:05; Start 07/06/19 at 07:30; Stop 07/06/19 at 08:02; Status DC Lidocaine HCl (Xylocaine-Mpf 1% 2ml Vial) 2 ml STK-MED ONCE .ROUTE ; Start 07/06/19 at 08:47; Stop 07/06/19 at 08:47; Status DC Meropenem 500 mg/ Sodium Chloride 50 ml @ 100 mls/hr Q12HR IV Last administered on 07/11/19at 21:01; Start 07/06/19 at 18:00; Stop 07/12/19 at 07:58; Status DC Lidocaine HCl (Buffered Lidocaine 1%) 3 ml STK-MED ONCE .ROUTE ; Start 07/06/19 at 09:46; Stop 07/06/19 at 09:46; Status DC Lidocaine HCl (Buffered Lidocaine 1%) 6 ml 1X ONCE INJ Last administered on 07/06/19at 10:26; Start 07/06/19 at 10:15; Stop 07/06/19 at 10:16; Status DC Info (Tpn Per Pharmacy) 1 each PRN DAILY PRN MC SEE COMMENTS Last administered on 10/26/19at 13:27; Start 07/06/19 at 12:00 Sodium Chloride 1,000 ml @ 1,000 mls/hr Q1H PRN IV hypotension; Start 07/06/19 at 12:07; Stop 07/06/19 at 18:06; Status DC Diphenhydramine HCl (Benadryl) 25 mg 1X PRN PRN IV ITCHING; Start 07/06/19 at 12:15; Stop 07/07/19 at 12:14; Status DC Diphenhydramine HCl (Benadryl) 25 mg 1X PRN PRN IV ITCHING; Start 07/06/19 at 1 2:15; Stop 07/07/19 at 12:14; Status DC Sodium Chloride 1,000 ml @ 400 mls/hr Q2H30M PRN IV PATENCY; Start 07/06/19 at 12:07; Stop 07/07/19 at 00:06; Status DC Info (PHARMACY MONITORING -- do not chart) 1 each PRN DAILY PRN MC SEE COMMENTS; Start 07/06/19 at 12:15; Stop 07/08/19 at 08:13; Status DC Sodium Chloride 90 meq/Calcium Gluconate 10 meq/ Multivitamins 10 ml/Chromium/ Copper/Manganese/ Seleni/Zn 1 ml/ Total Parenteral Nutrition/Amino Acids/Dextrose/ Fat Emulsion Intravenous 55.005 ml @ 2.292 mls/hr TPN CONT IV ; Start 07/06/19 at 22:00; Stop 07/06/19 at 12:33; Status DC Info (Tpn Per Pharmacy) 1 each PRN DAILY PRN MC SEE COMMENTS; Start 07/06/19 at 12:30; Status UNV Sodium Chloride 90 meq/Calcium Gluconate 10 meq/ Multivitamins 10 ml/Chromium/ Copper/Manganese/ Seleni/Zn 0.5 ml/ Total Parenteral Nutrition/Amino Acids/Dextrose/ Fat Emulsion Intravenous 1,512 ml @ 63 mls/hr TPN CONT IV Last administered on 07/06/19at 22:06; Start 07/06/19 at 22:00; Stop 07/07/19 at 21:59; Status DC Calcium Carbonate/ Glycine (Tums) 500 mg PRN AFTMEALHC PRN PO INDIGESTION; Start 07/06/19 at 17:45; Stop 08/31/19 at 10:25; Status DC Calcium Gluconate (Calcium Gluconate) 2,000 mg 1X ONCE IVP Last administered on 07/07/19at 02:19; Start 07/07/19 at 02:15; Stop 07/07/19 at 02:16; Status DC Calcium Chloride 3000 mg/Sodium Chloride 1,030 ml @ 50 mls/hr [id number] IV Last administered on 07/09/19at 02:17; Start 07/07/19 at 08:00; Stop 07/09/19 at 15:23; Status DC Lorazepam (Ativan Inj) 1 mg PRN Q4HRS PRN IVP ANXIETY / AGITATION, 2nd choic Last administered on 08/05/19at 03:51; Start 07/07/19 at 09:00; Stop 08/05/19 at 09:19; Status DC Sodium Chloride 1,000 ml @ 1,000 mls/hr Q1H PRN IV hypotension; Start 07/07/19 at 08:56; Stop 07/07/19 at 14:55; Status DC Albumin Human 200 ml @ 200 mls/hr 1X PRN PRN IV Hypotension; Start 07/07/19 at 09:00; Stop 07/07/19 at 14:59; Status DC Diphenhydramine HCl (Benadryl) 25 mg 1X PRN PRN IV ITCHING; Start 07/07/19 at 09:00; Stop 07/08/19 at 08:59; Status DC Diphenhydramine HCl (Benadryl) 25 mg 1X PRN PRN IV ITCHING; Start 07/07/19 at 09:00; Stop 07/08/19 at 08:59; Status DC Sodium Chloride 1,000 ml @ 400 mls/hr Q2H30M PRN IV PATENCY; Start 07/07/19 at 08:56; Stop 07/07/19 at 20:55; Status DC Info (PHARMACY MONITORING -- do not chart) 1 each PRN DAILY PRN MC SEE COMMENTS; Start 07/07/19 at 09:00; Status UNV Info (PHARMACY MONITORING -- do not chart) 1 each PRN DAILY PRN MC SEE COMMENTS; Start 07/07/19 at 09:00; Stop 07/08/19 at 08:13; Status DC Digoxin (Lanoxin) 500 mcg 1X ONCE IV Last administered on 07/07/19at 10:04; Start 07/07/19 at 10:00; Stop 07/07/19 at 10:01; Status DC Digoxin (Lanoxin) 125 mcg 1X ONCE IV Last administered on 07/07/19at 17:10; Start 07/07/19 at 18:00; Stop 07/07/19 at 18:01; Status DC Magnesium Sulfate 100 ml @ 25 mls/hr 1X ONCE IV Last administered on 07/07/19at 12:48; Start 07/07/19 at 13:00; Stop 07/07/19 at 16:59; Status DC Sodium Chloride 90 meq/Magnesium Sulfate 10 meq/ Calcium Gluconate 20 meq/ Multivitamins 10 ml/Chromium/ Copper/Manganese/ Seleni/Zn 0.5 ml/ Total Parenteral Nutrition/Amino Acids/Dextrose/ Fat Emulsion Intravenous 1,512 ml @ 63 mls/hr TPN CONT IV Last administered on 07/07/19at 22:25; Start 07/07/19 at 22:00; Stop 07/08/19 at 21:59; Status DC Sodium Chloride 1,000 ml @ 1,000 mls/hr Q1H PRN IV hypotension; Start 07/08/19 at 08:05; Stop 07/08/19 at 14:04; Status DC Albumin Human 200 ml @ 200 mls/hr 1X ONCE IV Last administered on 07/08/19at 08:57; Start 07/08/19 at 08:15; Stop 07/08/19 at 09:14; Status DC Diphenhydramine HCl (Benadryl) 25 mg 1X PRN PRN IV ITCHING; Start 07/08/19 at 08:15; Stop 07/09/19 at 08:14; Status DC Diphenhydramine HCl (Benadryl) 25 mg 1X PRN PRN IV ITCHING; Start 07/08/19 at 08:15; Stop 07/09/19 at 08:14; Status DC Sodium Chloride 1,000 ml @ 400 mls/hr Q2H30M PRN IV PATENCY; Start 07/08/19 at 08:05; Stop 07/08/19 at 20:04; Status DC Info (PHARMACY MONITORING -- do not chart) 1 each PRN DAILY PRN MC SEE COMMENTS; Start 07/08/19 at 08:15; Stop 07/12/19 at 07:57; Status DC Sodium Chloride 90 meq/Potassium Chloride 15 meq/ Potassium Phosphate 10 mmol/ Magnesium Sulfate 10 meq/Calcium Gluconate 20 meq/ Multivitamins 10 ml/Chromium/ Copper/Manganese/ Seleni/Zn 0.5 ml/ Total Parenteral Nutrition/Amino Acids/Dextrose/ Fat Emulsion Intravenous 1,512 ml @ 63 mls/hr TPN CONT IV Last administered on 07/08/19at 21:01; Start 07/08/19 at 22:00; Stop 07/09/19 at 21:59; Status DC Potassium Chloride/Water 100 ml @ 100 mls/hr 1X ONCE IV Last administered on 07/08/19at 14:09; Start 07/08/19 at 14:00; Stop 07/08/19 at 14:59; Status DC Benzocaine (Hurricaine One) 1 spray 1X ONCE MM Last administered on 07/08/19at 16:38; Start 07/08/19 at 14:30; Stop 07/08/19 at 14:31; Status DC Lidocaine HCl (Glydo (Lidocaine) Jelly) 1 ramu 1X ONCE MM Last administered on 07/08/19at 16:38; Start 07/08/19 at 14:30; Stop 07/08/19 at 14:31; Status DC Linezolid/Dextrose 300 ml @ 300 mls/hr Q12HR IV Last administered on 07/14/19at 21:04; Start 07/08/19 at 20:00; Stop 07/15/19 at 07:50; Status DC Acetaminophen (Tylenol) 650 mg PRN Q6HRS PRN PO MILD PAIN / TEMP; Start 07/09/19 at 03:30; Stop 07/09/19 at 03:36; Status DC Acetaminophen (Tylenol) 650 mg PRN Q6HRS PRN PEG MILD PAIN / TEMP Last administered on 08/04/19at 19:56; Start 07/09/19 at 03:36; Stop 08/31/19 at 10:25; Status DC Sodium Chloride 1,000 ml @ 1,000 mls/hr Q1H PRN IV hypotension; Start 07/09/19 at 07:50; Stop 07/09/19 at 13:49; Status DC Albumin Human 200 ml @ 200 mls/hr 1X PRN PRN IV Hypotension; Start 07/09/19 at 08:00; Stop 07/09/19 at 13:59; Status DC Sodium Chloride (Normal Saline Flush) 10 ml 1X PRN PRN IV AP catheter pack; Start 07/09/19 at 08:00; Stop 07/10/19 at 07:59; Status DC Sodium Chloride (Normal Saline Flush) 10 ml 1X PRN PRN IV NURSERY SUPERVISOR catheter pack; Start 07/09/19 at 08:00; Stop 07/10/19 at 07:59; Status DC Sodium Chloride 1,000 ml @ 400 mls/hr Q2H30M PRN IV PATENCY; Start 07/09/19 at 07:50; Stop 07/09/19 at 19:49; Status DC Info (PHARMACY MONITORING -- do not chart) 1 each PRN DAILY PRN MC SEE COMMENTS; Start 07/09/19 at 08:00; Status UNV Info (PHARMACY MONITORING -- do not chart) 1 each PRN DAILY PRN MC SEE COMMENTS; Start 07/09/19 at 08:00; Stop 07/11/19 at 08:25; Status DC Sodium Chloride 90 meq/Potassium Chloride 15 meq/ Potassium Phosphate 10 mmol/ Magnesium Sulfate 10 meq/Calcium Gluconate 20 meq/ Multivitamins 10 ml/Chromium/ Copper/Manganese/ Seleni/Zn 0.5 ml/ Total Parenteral Nutrition/Amino Acids/D extrose/ Fat Emulsion Intravenous 1,512 ml @ 63 mls/hr TPN CONT IV Last administered on 07/09/19at 20:57; Start 07/09/19 at 22:00; Stop 07/10/19 at 21:59; Status DC Sodium Chloride 90 meq/Potassium Chloride 15 meq/ Potassium Phosphate 15 mmol/ Magnesium Sulfate 10 meq/Calcium Gluconate 20 meq/ Multivitamins 10 ml/Chromium/ Copper/Manganese/ Seleni/Zn 0.5 ml/ Total Parenteral Nutrition/Amino Acids/Dextrose/ Fat Emulsion Intravenous 1,512 ml @ 63 mls/hr TPN CONT IV ; Start 07/10/19 at 22:00; Stop 07/10/19 at 14:16; Status DC Sodium Chloride 90 meq/Potassium Chloride 15 meq/ Potassium Phosphate 15 mmol/ Magnesium Sulfate 10 meq/Calcium Gluconate 20 meq/ Multivitamins 10 ml/Chromium/ Copper/Manganese/ Seleni/Zn 0.5 ml/ Total Parenteral Nutrition/Amino Acid s/Dextrose/ Fat Emulsion Intravenous 1,200 ml @ 50 mls/hr TPN CONT IV ; Start 07/10/19 at 22:00; Stop 07/10/19 at 14:17; Status DC Sodium Chloride 90 meq/Potassium Chloride 15 meq/ Potassium Phosphate 10 mmol/ Magnesium Sulfate 10 meq/Calcium Gluconate 20 meq/ Multivitamins 10 ml/Chromium/ Copper/Manganese/ Seleni/Zn 0.5 ml/ Total Parenteral Nutrition/Amino Acids/Dextrose/ Fat Emulsion Intravenous 1,200 ml @ 50 mls/hr TPN CONT IV Last administered on 07/10/19at 23:29; Start 07/10/19 at 22:00; Stop 07/11/19 at 21:59; Status DC Sodium Chloride 1,000 ml @ 1,000 mls/hr Q1H PRN IV hypotension; Start 07/11/19 at 07:28; Stop 07/11/19 at 13:27; Status DC Albumin Human 200 ml @ 200 mls/hr 1X ONCE IV Last administered on 07/11/19at 08:51; Start 07/11/19 at 07:30; Stop 07/11/19 at 08:29; Status DC Diphenhydramine HCl (Benadryl) 25 mg 1X PRN PRN IV ITCHING; Start 07/11/19 at 07:30; Stop 07/12/19 at 07:29; Status DC Diphenhydramine HCl (Benadryl) 25 mg 1X PRN PRN IV ITCHING; Start 07/11/19 at 07:30; Stop 07/12/19 at 07:29; Status DC Sodium Chloride 1,000 ml @ 400 mls/hr Q2H30M PRN IV PATENCY; Start 07/11/19 at 07:28; Stop 07/11/19 at 19:27; Status DC Info (PHARMACY MONITORING -- do not chart) 1 each PRN DAILY PRN MC SEE COMMENTS; Start 07/11/19 at 07:30; Stop 07/22/19 at 13:01; Status DC Metronidazole 100 ml @ 100 mls/hr Q6HRS IV Last administered on 07/27/19at 06:26; Start 07/11/19 at 08:30; Stop 07/27/19 at 09:58; Status DC Micafungin Sodium 100 mg/Dextrose 100 ml @ 100 mls/hr Q24H IV Last administered on 08/18/19at 08:18; Start 07/11/19 at 09:00; Stop 08/18/19 at 20:58; Status DC Propofol 0 ml @ As Directed STK-MED ONCE IV ; Start 07/11/19 at 07:53; Stop 07/11/19 at 07:53; Status DC Etomidate (Amidate) 20 mg STK-MED ONCE IV ; Start 07/11/19 at 07:53; Stop 07/11/19 at 07:54; Status DC Midazolam HCl (Versed) 5 mg STK-MED ONCE .ROUTE ; Start 07/11/19 at 07:57; Stop 07/11/19 at 07:57; Status DC Fentanyl Citrate 30 ml @ 0 mls/hr CONT PRN IV SEE PROTOCOL Last administered on 08/05/19at 06:12; Start 07/11/19 at 08:15; Stop 08/05/19 at 09:19; Status DC Artificial Tears (Artificial Tears) 1 drop PRN Q1HR PRN OU DRY EYE, 1st choice; Start 07/11/19 at 08:15; Stop 08/17/19 at 05:31; Status DC Midazolam HCl 50 mg/Sodium Chloride 50 ml @ 0 mls/hr CONT PRN IV SEE PROTOCOL Last administered on 07/14/19at 22:39; Start 07/11/19 at 08:15; Stop 07/16/19 at 15:59; Status DC Etomidate (Amidate) 8 mg 1X ONCE IV Last administered on 07/11/19at 08:33; Start 07/11/19 at 08:30; Stop 07/11/19 at 08:31; Status DC Succinylcholine Chloride (Anectine) 120 mg 1X ONCE IV Last administered on 07/11/19at 08:34; Start 07/11/19 at 08:30; Stop 07/11/19 at 08:31; Status DC Midazolam HCl (Versed) 5 mg 1X ONCE IV ; Start 07/11/19 at 08:30; Stop 07/11/19 at 08:31; Status DC Potassium Chloride 15 meq/ Bicarbonate Dialysis Soln w/ out KCl 5,007.5 ml @ 1,000 mls/ hr Q5H1M IV Last administered on 07/12/19at 11:11; Start 07/11/19 at 12:00; Stop 07/12/19 at 11:15; Status DC Potassium Chloride 15 meq/ Bicarbonate Dialysis Soln w/ out KCl 5,007.5 ml @ 1,000 mls/ hr Q5H1M IV Last administered on 07/12/19at 11:12; Start 07/11/19 at 12:00; Stop 07/12/19 at 11:17; Status DC Potassium Chloride 15 meq/ Bicarbonate Dialysis Soln w/ out KCl 5,007.5 ml @ 1,000 mls/ hr Q5H1M IV Last administered on 07/12/19at 11:11; Start 07/11/19 at 12:00; Stop 07/12/19 at 11:19; Status DC Sodium Chloride 90 meq/Potassium Chloride 15 meq/ Potassium Phosphate 10 mmol/ Magnesium Sulfate 10 meq/Calcium Gluconate 20 meq/ Multivitamins 10 ml/Chromium/ Copper/Manganese/ Seleni/Zn 0.5 ml/ Total Parenteral Nutrition/Amino Acids/Dextrose/ Fat Emulsion Intravenous 1,400 ml @ 58.333 mls/ hr TPN CONT IV Last administered on 07/11/19at 21:42; Start 07/11/19 at 22:00; Stop 07/12/19 at 21:59; Status DC Heparin Sodium (Porcine) (Heparin Sodium) 5,000 unit Q8HRS SQ Last administered on 07/16/19at 05:55; Start 07/11/19 at 15:00; Stop 07/16/19 at 13:28; Status DC Meropenem 500 mg/ Sodium Chloride 50 ml @ 100 mls/hr Q6HRS IV Last administered on 07/13/19at 06:00; Start 07/12/19 at 09:00; Stop 07/13/19 at 07:29; Status DC Potassium Phosphate 20 mmol/ Sodium Chloride 106.6667 ml @ 51.667 m... 1X ONCE IV Last administered on 07/12/19at 11:22; Start 07/12/19 at 10:15; Stop 07/12/19 at 12:18; Status DC Acetaminophen (Tylenol Supp) 650 mg PRN Q6HRS PRN TX MILD PAIN / TEMP > 100.3'F Last administered on 10/17/19at 18:16; Start 07/12/19 at 10:30 Potassium Chloride/Water 100 ml @ 100 mls/hr Q1H IV Last administered on 07/12/19at 12:12; Start 07/12/19 at 11:00; Stop 07/12/19 at 12:59; Status DC Potassium Chloride 20 meq/ Bicarbonate Dialysis Soln w/ out KCl 5,010 ml @ 1,000 mls/hr Q5H1M IV Last administered on 07/13/19at 08:48; Start 07/12/19 at 12:00; Stop 07/13/19 at 13:03; Status DC Potassium Chloride 20 meq/ Bicarbonate Dialysis Soln w/ out KCl 5,010 ml @ 1,000 mls/hr Q5H1M IV Last administered on 07/17/19at 14:52; Start 07/12/19 at 11:30; Stop 07/17/19 at 19:59; Status DC Potassium Chloride 20 meq/ Bicarbonate Dialysis Soln w/ out KCl 5,010 ml @ 1,000 mls/hr Q5H1M IV Last administered on 07/17/19at 14:53; Start 07/12/19 at 11:30; Stop 07/17/19 at 19:59; Status DC Sodium Chloride 90 meq/Potassium Chloride 15 meq/ Potassium Phosphate 15 mmol/ Magnesium Sulfate 10 meq/Calcium Gluconate 15 meq/ Multivitamins 10 ml/Chromium/ Copper/Manganese/ Seleni/Zn 0.5 ml/ Total Parenteral Nutrition/Amino Acids/Dextrose/ Fat Emulsion Intravenous 1,400 ml @ 58.333 mls/ hr TPN CONT IV Last administered on 07/12/19at 22:17; Start 07/12/19 at 22:00; Stop 07/13/19 at 21:59; Status DC Cefepime HCl (Maxipime) 2 gm Q12HR IVP Last administered on 07/26/19at 20:56; Start 07/13/19 at 09:00; Stop 07/27/19 at 09:58; Status DC Daptomycin 500 mg/ Sodium Chloride 50 ml @ 100 mls/hr Q48H IV Last administered on 07/29/19at 09:57; Start 07/13/19 at 08:30; Stop 07/29/19 at 10:07; Status DC Lidocaine HCl (Buffered Lidocaine 1%) 3 ml 1X ONCE INJ Last administered on 07/13/19at 10:27; Start 07/13/19 at 10:30; Stop 07/13/19 at 10:31; Status DC Potassium Phosphate 20 mmol/ Sodium Chloride 106.6667 ml @ 51.667 m... 1X ONCE IV Last administered on 07/13/19at 12:51; Start 07/13/19 at 13:00; Stop 07/13/19 at 15:03; Status DC Sodium Chloride 90 meq/Potassium Chloride 15 meq/ Potassium Phosphate 18 mmol/ Magnesium Sulfate 8 meq/Calcium Gluconate 15 meq/ Multivitamins 10 ml/Chromium/ Copper/Manganese/ Seleni/Zn 0.5 ml/ Total Parenteral Nutrition/Amino Acids/Dextrose/ Fat Emulsion Intravenous 1,400 ml @ 58.333 mls/ hr TPN CONT IV Last administered on 07/13/19at 22:16; Start 07/13/19 at 22:00; Stop 07/14/19 at 21:59; Status DC Potassium Chloride 20 meq/ Bicarbonate Dialysis Soln w/ out KCl 5,010 ml @ 1,000 mls/hr Q5H1M IV Last administered on 07/17/19at 14:54; Start 07/13/19 at 16:00; Stop 07/17/19 at 19:59; Status DC Multi-Ingred Cream/Lotion/Oil/ Oint (Artificial Tears Eye Ointment) 1 ramu PRN Q1HR PRN OU DRY EYE, 2nd choice Last administered on 08/01/19at 08:19; Start 07/13/19 at 17:30; Stop 09/21/19 at 14:39; Status DC Sodium Chloride 90 meq/Potassium Chloride 15 meq/ Potassium Phosphate 18 mmol/ Magnesium Sulfate 8 meq/Calcium Gluconate 15 meq/ Multivitamins 10 ml/Chromium/ Copper/Manganese/ Seleni/Zn 0.5 ml/ Total Parenteral Nutrition/Amino Acid s/Dextrose/ Fat Emulsion Intravenous 1,400 ml @ 58.333 mls/ hr TPN CONT IV Last administered on 07/14/19at 22:00; Start 07/14/19 at 22:00; Stop 07/15/19 at 21:59; Status DC Albumin Human 500 ml @ 125 mls/hr 1X ONCE IV ; Start 07/14/19 at 14:15; Stop 07/14/19 at 18:14; Status DC Sodium Chloride 90 meq/Potassium Chloride 15 meq/ Potassium Phosphate 18 mmol/ Magnesium Sulfate 8 meq/Calcium Gluconate 15 meq/ Multivitamins 10 ml/Chromium/ Copper/Manganese/ Seleni/Zn 0.5 ml/ Insulin Human Regular 10 unit/ Total Parenteral Nutrition/Amino Acids/Dextrose/ Fat Emulsion Intravenous 1,400 ml @ 58.333 mls/ hr TPN CONT IV Last administered on 07/15/19at 21:43; Start 07/15/19 at 22:00; Stop 07/16/19 at 21:59; Status DC Lidocaine HCl (Buffered Lidocaine 1%) 3 ml STK-MED ONCE .ROUTE ; Start 07/13/19 at 10:00; Stop 07/15/19 at 13:57; Status DC Midazolam HCl 100 mg/Sodium Chloride 100 ml @ 7 mls/hr CONT PRN IV SEE PROTOCOL Last administered on 07/27/19at 15:35; Start 07/16/19 at 16:00; Stop 09/21/19 at 14:38; Status DC Sodium Chloride 90 meq/Potassium Chloride 15 meq/ Potassium Phosphate 18 mmol/ Magnesium Sulfate 8 meq/Calcium Gluconate 15 meq/ Multivitamins 10 ml/Chromium/ Copper/Manganese/ Seleni/Zn 0.5 ml/ Insulin Human Regular 15 unit/ Total Parenteral Nutrition/Amino Acids/Dextrose/ Fat Emulsion Intravenous 1,400 ml @ 58.333 mls/ hr TPN CONT IV Last administered on 07/16/19at 20:34; Start 07/16/19 at 22:00; Stop 07/17/19 at 21:59; Status DC Info (Icu Electrolyte Protocol) 1 ea CONT PRN PRN MC PER PROTOCOL; Start 07/17/19 at 13:15 Sodium Chloride 90 meq/Potassium Chloride 15 meq/ Potassium Phosphate 18 mmol/ Magnesium Sulfate 8 meq/Calcium Gluconate 15 meq/ Multivitamins 10 ml/Chromium/ Copper/Manganese/ Seleni/Zn 0.5 ml/ Insulin Human Regular 15 unit/ Total Par enteral Nutrition/Amino Acids/Dextrose/ Fat Emulsion Intravenous 1,400 ml @ 58.333 mls/ hr TPN CONT IV Last administered on 07/17/19at 22:05; Start 07/17/19 at 22:00; Stop 07/18/19 at 21:59; Status DC Potassium Chloride 15 meq/ Bicarbonate Dialysis Soln w/ out KCl 5,007.5 ml @ 1,000 mls/ hr Q5H1M IV Last administered on 07/20/19at 18:14; Start 07/17/19 at 20:00; Stop 07/21/19 at 13:08; Status DC Potassium Chloride 15 meq/ Bicarbonate Dialysis Soln w/ out KCl 5,007.5 ml @ 1,000 mls/ hr Q5H1M IV Last administered on 07/20/19at 18:14; Start 07/17/19 at 20:00; Stop 07/21/19 at 13:08; Status DC Potassium Chloride 15 meq/ Bicarbonate Dialysis Soln w/ out KCl 5,007.5 ml @ 1,000 mls/ hr Q5H1M IV Last administered on 07/20/19at 18:14; Start 07/17/19 at 20:00; Stop 07/21/19 at 13:08; Status DC Iohexol (Omnipaque 240 Mg/ml) 30 ml 1X ONCE PO Last administered on 07/18/19at 11:30; Start 07/18/19 at 11:30; Stop 07/18/19 at 11:33; Status DC Info (CONTRAST GIVEN -- Rx MONITORING) 1 each PRN DAILY PRN MC SEE COMMENTS; Start 07/18/19 at 11:45; Stop 07/20/19 at 11:44; Status DC Sodium Chloride 90 meq/Potassium Chloride 15 meq/ Potassium Phosphate 18 mmol/ Magnesium Sulfate 8 meq/Calcium Gluconate 15 meq/ Multivitamins 10 ml/Chromium/ Copper/Manganese/ Seleni/Zn 0.5 ml/ Insulin Human Regular 15 unit/ Total Parenteral Nutrition/Amino Acids/Dextrose/ Fat Emulsion Intravenous 1,400 ml @ 58.333 mls/ hr TPN CONT IV Last administered on 07/18/19at 21:47; Start 07/18/19 at 22:00; Stop 07/19/19 at 21:59; Status DC Sodium Chloride 90 meq/Potassium Chloride 15 meq/ Potassium Phosphate 18 mmol/ Magnesium Sulfate 8 meq/Calcium Gluconate 15 meq/ Multivitamins 10 ml/Chromium/ Copper/Manganese/ Seleni/Zn 0.5 ml/ Insulin Human Regular 20 unit/ Total Parenteral Nutrition/Amino Acids/Dextrose/ Fat Emulsion Intravenous 1,400 ml @ 58.333 mls/ hr TPN CONT IV Last administered on 07/19/19at 21:36; Start 07/19/19 at 22:00; Stop 07/20/19 at 21:59; Status DC Alteplase, Recombinant (Cathflo For Central Catheter Clearance) 1 mg 1X ONCE INT CAT Last administered on 07/19/19at 20:03; Start 07/19/19 at 19:30; Stop 07/19/19 at 19:46; Status DC Alteplase, Recombinant (Cathflo For Central Catheter Clearance) 1 mg 1X ONCE INT CAT Last administered on 07/19/19at 22:05; Start 07/19/19 at 22:00; Stop 07/19/19 at 22:01; Status DC Sodium Chloride 90 meq/Potassium Chloride 15 meq/ Potassium Phosphate 18 mmol/ Magnesium Sulfate 8 meq/Calcium Gluconate 15 meq/ Multivitamins 10 ml/Chromium/ Copper/Manganese/ Seleni/Zn 0.5 ml/ Insulin Human Regular 20 unit/ Total Parenteral Nutrition/Amino Acids/Dextrose/ Fat Emulsion Intravenous 1,400 ml @ 58.333 mls/ hr TPN CONT IV Last administered on 07/20/19at 21:30; Start 07/20/19 at 22:00; Stop 07/21/19 at 21:59; Status DC Dexmedetomidine HCl 400 mcg/ Sodium Chloride 100 ml @ 0 mls/hr CONT PRN IV ANXIETY / AGITATION Last administered on 09/17/19at 12:57; Start 07/21/19 at 08:15; Stop 09/17/19 at 18:31; Status DC Sodium Chloride 500 ml @ 500 mls/hr 1X PRN PRN IV ELEVATED BP, SEE COMMENTS; Start 07/21/19 at 08:15 Atropine Sulfate (ATROPINE 0.5mg SYRINGE) 0.5 mg PRN Q5MIN PRN IV SEE COMMENTS; Start 07/21/19 at 08:15 Furosemide (Lasix) 20 mg 1X ONCE IVP Last administered on 07/21/19at 08:19; Start 07/21/19 at 08:15; Stop 07/21/19 at 08:16; Status DC Lidocaine HCl (Buffered Lidocaine 1%) 3 ml STK-MED ONCE .ROUTE ; Start 07/21/19 at 08:39; Stop 07/21/19 at 08:39; Status DC Lidocaine HCl (Buffered Lidocaine 1%) 6 ml 1X ONCE INJ Last administered on 07/21/19at 09:05; Start 07/21/19 at 09:00; Stop 07/21/19 at 09:06; Status DC Sodium Chloride 90 meq/Potassium Chloride 15 meq/ Potassium Phosphate 18 mmol/ Magnesium Sulfate 8 meq/Calcium Gluconate 15 meq/ Multivitamins 10 ml/Chromium/ Copper/Manganese/ Seleni/Zn 0.5 ml/ Insulin Human Regular 20 unit/ Total Parenteral Nutrition/Amino Acids/Dextrose/ Fat Emulsion Intravenous 1,400 ml @ 58.333 mls/ hr TPN CONT IV Last administered on 07/21/19at 22:45; Start 07/21/19 at 22:00; Stop 07/22/19 at 21:59; Status DC Sodium Chloride 1,000 ml @ 1,000 mls/hr Q1H PRN IV hypotension; Start 07/22/19 at 07:30; Stop 07/22/19 at 13:29; Status DC Albumin Human 200 ml @ 200 mls/hr 1X PRN PRN IV Hypotension Last administered on 07/22/19at 09:36; Start 07/22/19 at 07:30; Stop 07/22/19 at 13:29; Status DC Sodium Chloride (Normal Saline Flush) 10 ml 1X PRN PRN IV AP catheter pack; Start 07/22/19 at 07:30; Stop 07/22/19 at 21:29; Status DC Sodium Chloride (Normal Saline Flush) 10 ml 1X PRN PRN IV NURSERY SUPERVISOR catheter pack; Start 07/22/19 at 07:30; Stop 07/23/19 at 07:29; Status DC Sodium Chloride 1,000 ml @ 400 mls/hr Q2H30M PRN IV PATENCY; Start 07/22/19 at 07:30; Stop 07/22/19 at 19:29; Status DC Info (PHARMACY MONITORING -- do not chart) 1 each PRN DAILY PRN MC SEE COMMENTS; Start 07/22/19 at 07:30; Stop 07/22/19 at 13:02; Status DC Info (PHARMACY MONITORING -- do not chart) 1 each PRN DAILY PRN MC SEE COMMENTS; Start 07/22/19 at 07:30; Stop 07/24/19 at 12:45; Status DC Sodium Chloride 90 meq/Potassium Chloride 15 meq/ Potassium Phosphate 10 mmol/ Magnesium Sulfate 8 meq/Calcium Gluconate 15 meq/ Multivitamins 10 ml/Chromium/ Copper/Manganese/ Seleni/Zn 0.5 ml/ Insulin Human Regular 25 unit/ Total Parenteral Nutrition/Amino Acids/Dextrose/ Fat Emulsion Intravenous 1,400 ml @ 58.333 mls/ hr TPN CONT IV Last administered on 07/22/19at 22:19; Start 07/22/19 at 22:00; Stop 07/23/19 at 21:59; Status DC Heparin Sodium (Porcine) (Heparin Sodium) 5,000 unit Q12HR SQ Last administered on 08/14/19at 08:59; Start 07/22/19 at 21:00; Stop 08/14/19 at 10:05; Status DC Ondansetron HCl (Zofran) 4 mg PRN Q6HRS PRN IV NAUSEA/VOMITING; Start 07/25/19 at 07:00; Stop 07/26/19 at 06:59; Status DC Fentanyl Citrate (Fentanyl 2ml Vial) 25 mcg PRN Q5MIN PRN IV MILD PAIN 1-3; Start 07/25/19 at 07:00; Stop 07/26/19 at 06:59; Status DC Fentanyl Citrate (Fentanyl 2ml Vial) 50 mcg PRN Q5MIN PRN IV MODERATE TO SEVERE PAIN; Start 07/25/19 at 07:00; Stop 07/26/19 at 06:59; Status DC Ringer's Solution 1,000 ml @ 30 mls/hr Q24H IV ; Start 07/25/19 at 07:00; Stop 07/25/19 at 18:59; Status DC Lidocaine HCl (Xylocaine-Mpf 1% 2ml Vial) 2 ml PRN 1X PRN ID PRIOR TO IV START; Start 07/25/19 at 07:00; Stop 07/26/19 at 06:59; Status DC Prochlorperazine Edisylate (Compazine) 5 mg PACU PRN PRN IV NAUSEA, MRX1; Start 07/25/19 at 07:00; Stop 07/26/19 at 06:59; Status DC Sodium Chloride 1,000 ml @ 1,000 mls/hr Q1H PRN IV hypotension; Start 07/23/19 at 09:10; Stop 07/23/19 at 15:09; Status DC Albumin Human 200 ml @ 200 mls/hr 1X PRN PRN IV Hypotension Last administered on 07/23/19at 10:10; Start 07/23/19 at 09:15; Stop 07/23/19 at 15:14; Status DC Sodium Chloride 1,000 ml @ 400 mls/hr Q2H30M PRN IV PATENCY; Start 07/23/19 at 09:10; Stop 07/23/19 at 21:09; Status DC Info (PHARMACY MONITORING -- do not chart) 1 each PRN DAILY PRN MC SEE COMMENTS; Start 07/23/19 at 09:15; Stop 07/24/19 at 12:45; Status DC Info (PHARMACY MONITORING -- do not chart) 1 each PRN DAILY PRN MC SEE COMMENTS; Start 07/23/19 at 09:15; Stop 07/24/19 at 12:45; Status DC Sodium Chloride 90 meq/Potassium Chloride 15 meq/ Potassium Phosphate 10 mmol/ Magnesium Sulfate 8 meq/Calcium Gluconate 15 meq/ Multivitamins 10 ml/Chromium/ Copper/Manganese/ Seleni/Zn 0.5 ml/ Insulin Human Regular 25 unit/ Total Parenteral Nutrition/Amino Acids/Dextrose/ Fat Emulsion Intravenous 1,400 ml @ 58.333 mls/ hr TPN CONT IV Last administered on 07/23/19at 22:10; Start 07/23/19 at 22:00; Stop 07/24/19 at 21:59; Status DC Magnesium Sulfate 50 ml @ 25 mls/hr PRN DAILY PRN IV for Mag < 1.7 on am labs Last administered on 10/06/19at 10:57; Start 07/24/19 at 09:15 Sodium Chloride 90 meq/Potassium Chloride 15 meq/ Potassium Phosphate 10 mmol/ Magnesium Sulfate 8 meq/Calcium Gluconate 15 meq/ Multivitamins 10 ml/Chromium/ Copper/Manganese/ Seleni/Zn 0.5 ml/ Insulin Human Regular 25 unit/ Total Parenteral Nutrition/Amino Acids/Dextrose/ Fat Emulsion Intravenous 1,400 ml @ 58.333 mls/ hr TPN CONT IV Last administered on 07/24/19at 21:20; Start 07/24/19 at 22:00; Stop 07/25/19 at 21:59; Status DC Sodium Chloride 1,000 ml @ 1,000 mls/hr Q1H PRN IV hypotension; Start 07/24/19 at 12:23; Stop 07/24/19 at 18:22; Status DC Albumin Human 200 ml @ 200 mls/hr 1X ONCE IV Last administered on 07/24/19at 13:34; Start 07/24/19 at 12:30; Stop 07/24/19 at 13:29; Status DC Diphenhydramine HCl (Benadryl) 25 mg 1X PRN PRN IV ITCHING; Start 07/24/19 at 12:30; Stop 07/25/19 at 12:29; Status DC Diphenhydramine HCl (Benadryl) 25 mg 1X PRN PRN IV ITCHING; Start 07/24/19 at 12:30; Stop 07/25/19 at 12:29; Status DC Info (PHARMACY MONITORING -- do not chart) 1 each PRN DAILY PRN MC SEE COMMENTS; Start 07/24/19 at 12:30; Status Cancel Bupivacaine HCl/ Epinephrine Bitart (Sensorcain-Epi 0.5%-1:[id number] Mpf) 30 ml STK-MED ONCE .ROUTE Last administered on 07/25/19at 11:44; Start 07/25/19 at 11:00; Stop 07/25/19 at 11:01; Status DC Cellulose (Surgicel Fibrillar 1x2) 1 each STK-MED ONCE .ROUTE ; Start 07/25/19 at 11:00; Stop 07/25/19 at 11:01; Status DC Sodium Chloride 90 meq/Potassium Chloride 15 meq/ Potassium Phosphate 10 mmol/ Magnesium Sulfate 12 meq/Calcium Gluconate 15 meq/ Multivitamins 10 ml/Chromium/ Copper/Manganese/ Seleni/Zn 0.5 ml/ Insulin Human Regular 25 unit/ Total Parenteral Nutrition/Amino Acids/Dextrose/ Fat Emulsion Intravenous 1,400 ml @ 58.333 mls/ hr TPN CONT IV Last administered on 07/25/19at 22:24; Start 07/25/19 at 22:00; Stop 07/26/19 at 21:59; Status DC Propofol 20 ml @ As Directed STK-MED ONCE IV ; Start 07/25/19 at 11:07; Stop 07/25/19 at 11:07; Status DC Cellulose (Surgicel Hemostat 4x8) 1 each STK-MED ONCE .ROUTE Last administered on 07/25/19at 11:44; Start 07/25/19 at 11:55; Stop 07/25/19 at 11:56; Status DC Sevoflurane (Ultane) 60 ml STK-MED ONCE IH ; Start 07/25/19 at 12:46; Stop 07/25/19 at 12:46; Status DC Sodium Chloride 1,000 ml @ 1,000 mls/hr Q1H PRN IV hypotension; Start 07/25/19 at 13:51; Stop 07/25/19 at 19:50; Status DC Albumin Human 200 ml @ 200 mls/hr 1X PRN PRN IV Hypotension Last administered on 07/25/19at 14:51; Start 07/25/19 at 14:00; Stop 07/25/19 at 19:59; Status DC Diphenhydramine HCl (Benadryl) 25 mg 1X PRN PRN IV ITCHING; Start 07/25/19 at 14:00; Stop 07/26/19 at 13:59; Status DC Diphenhydramine HCl (Benadryl) 25 mg 1X PRN PRN IV ITCHING; Start 07/25/19 at 14:00; Stop 07/26/19 at 13:59; Status DC Sodium Chloride 1,000 ml @ 400 mls/hr Q2H30M PRN IV PATENCY; Start 07/25/19 at 13:51; Stop 07/26/19 at 01:50; Status DC Info (PHARMACY MONITORING -- do not chart) 1 each PRN DAILY PRN MC SEE COMMENTS; Start 07/25/19 at 14:00; Stop 07/28/19 at 08:16; Status DC Heparin Sodium (Porcine) (Hep Lock Adult) 500 unit STK-MED ONCE IVP ; Start 07/26/19 at 09:29; Stop 07/26/19 at 09:30; Status DC Sodium Chloride 1,000 ml @ 1,000 mls/hr Q1H PRN IV hypotension; Start 07/26/19 at 10:43; Stop 07/26/19 at 16:42; Status DC Sodium Chloride 1,000 ml @ 400 mls/hr Q2H30M PRN IV PATENCY; Start 07/26/19 at 10:43; Stop 07/26/19 at 22:42; Status DC Info (PHARMACY MONITORING -- do not chart) 1 each PRN DAILY PRN MC SEE COMMENTS; Start 07/26/19 at 10:45; Status UNV Info (PHARMACY MONITORING -- do not chart) 1 each PRN DAILY PRN MC SEE COMMENTS; Start 07/26/19 at 10:45; Status UNV Sodium Chloride 90 meq/Potassium Chloride 15 meq/ Magnesium Sulfate 12 meq/Calcium Gluconate 15 meq/ Multivitamins 10 ml/Chromium/ Copper/Manganese/ Seleni/Zn 0.5 ml/ Insulin Human Regular 25 unit/ Total Parenteral Nutrition/Amino Acids/Dextrose/ Fat Emulsion Intravenous 1,400 ml @ 58.333 mls/ hr TPN CONT IV Last administered on 07/26/19at 22:13; Start 07/26/19 at 22:00; Stop 07/27/19 at 21:59; Status DC Sodium Chloride 1,000 ml @ 1,000 mls/hr Q1H PRN IV hypotension; Start 07/27/19 at 07:50; Stop 07/27/19 at 13:49; Status DC Albumin Human 200 ml @ 200 mls/hr 1X ONCE IV ; Start 07/27/19 at 08:00; Stop 07/27/19 at 08:53; Status DC Diphenhydramine HCl (Benadryl) 25 mg 1X PRN PRN IV ITCHING; Start 07/27/19 at 08:00; Stop 07/28/19 at 07:59; Status DC Diphenhydramine HCl (Benadryl) 25 mg 1X PRN PRN IV ITCHING; Start 07/27/19 at 08:00; Stop 07/28/19 at 07:59; Status DC Info (PHARMACY MONITORING -- do not chart) 1 each PRN DAILY PRN MC SEE COMMENTS; Start 07/27/19 at 08:00; Stop 07/28/19 at 08:16; Status DC Albumin Human 50 ml @ 50 mls/hr 1X ONCE IV ; Start 07/27/19 at 08:53; Stop 07/27/19 at 08:56; Status DC Albumin Human 200 ml @ 50 mls/hr PRN 1X PRN IV HYPOTENSION Last administered on 08/02/19at 11:54; Start 07/27/19 at 09:00; Stop 09/08/19 at 11:14; Status DC Meropenem 500 mg/ Sodium Chloride 50 ml @ 100 mls/hr Q12H IV Last administered on 08/16/19at 10:45; Start 07/27/19 at 10:00; Stop 08/16/19 at 12:37; Status DC Sodium Chloride 90 meq/Magnesium Sulfate 12 meq/ Calcium Gluconate 15 meq/ Mu ltivitamins 10 ml/Chromium/ Copper/Manganese/ Seleni/Zn 0.5 ml/ Insulin Human Regular 25 unit/ Total Parenteral Nutrition/Amino Acids/Dextrose/ Fat Emulsion Intravenous 1,400 ml @ 58.333 mls/ hr TPN CONT IV Last administered on 07/27/19at 21:41; Start 07/27/19 at 22:00; Stop 07/28/19 at 21:59; Status DC Sodium Chloride 1,000 ml @ 1,000 mls/hr Q1H PRN IV hypotension; Start 07/28/19 at 07:58; Stop 07/28/19 at 13:57; Status DC Albumin Human 200 ml @ 200 mls/hr 1X PRN PRN IV Hypotension Last administered on 07/28/19at 09:30; Start 07/28/19 at 08:00; Stop 07/28/19 at 13:59; Status DC Sodium Chloride 1,000 ml @ 400 mls/hr Q2H30M PRN IV PATENCY; Start 07/28/19 at 07:58; Stop 07/28/19 at 19:57; Status DC Info (PHARMACY MONITORING -- do not chart) 1 each PRN DAILY PRN MC SEE COMMENTS; Start 07/28/19 at 08:00; Status Cancel Info (PHARMACY MONITORING -- do not chart) 1 each PRN DAILY PRN MC SEE COMMENTS; Start 07/28/19 at 08:15; Status UNV Sodium Chloride 90 meq/Potassium Phosphate 5 mmol/ Magnesium Sulfate 12 meq/Calc ium Gluconate 15 meq/ Multivitamins 10 ml/Chromium/ Copper/Manganese/ Seleni/Zn 0.5 ml/ Insulin Human Regular 30 unit/ Total Parenteral Nutrition/Amino Acids/Dextrose/ Fat Emulsion Intravenous 1,400 ml @ 58.333 mls/ hr TPN CONT IV Last administered on 07/28/19at 22:08; Start 07/28/19 at 22:00; Stop 07/29/19 at 21:59; Status DC Linezolid/Dextrose 300 ml @ 300 mls/hr Q12HR IV Last administered on 08/08/19at 20:40; Start 07/29/19 at 11:00; Stop 08/09/19 at 08:10; Status DC Sodium Chloride 90 meq/Potassium Phosphate 15 mmol/ Magnesium Sulfate 12 meq/Calcium Gluconate 15 meq/ Multivitamins 10 ml/Chromium/ Copper/Manganese/ Seleni/Zn 0.5 ml/ Insulin Human Regular 30 unit/ Total Parenteral Nutrition/Amino Acids/Dextrose/ Fat Emulsion Intravenous 1,400 ml @ 58.333 mls/ hr TPN CONT IV Last administered on 07/29/19at 21:49; Start 07/29/19 at 22:00; Stop 07/30/19 at 21:59; Status DC Sodium Chloride 90 meq/Potassium Phosphate 15 mmol/ Magnesium Sulfate 12 meq/Calcium Gluconate 15 meq/ Multivitamins 10 ml/Chromium/ Copper/Manganese/ Seleni/Zn 0.5 ml/ Insulin Human Regular 40 unit/ Total Parenteral Nutrition/Amino Acids/Dextrose/ Fat Emulsion Intravenous 1,400 ml @ 58.333 mls/ hr TPN CONT IV Last administered on 07/30/19at 21:21; Start 07/30/19 at 22:00; Stop 07/31/19 at 21:59; Status DC Sodium Chloride 1,000 ml @ 1,000 mls/hr Q1H PRN IV hypotension; Start 07/30/19 at 13:26; Stop 07/30/19 at 19:25; Status DC Albumin Human 200 ml @ 200 mls/hr 1X PRN PRN IV Hypotension Last administered on 07/30/19at 15:00; Start 07/30/19 at 13:30; Stop 07/30/19 at 19:29; Status DC Sodium Chloride (Normal Saline Flush) 10 ml 1X PRN PRN IV AP catheter pack; Start 07/30/19 at 13:30; Stop 07/31/19 at 13:29; Status DC Sodium Chloride (Normal Saline Flush) 10 ml 1X PRN PRN IV NURSERY SUPERVISOR catheter pack; Start 07/30/19 at 13:30; Stop 07/31/19 at 13:29; Status DC Sodium Chloride 1,000 ml @ 400 mls/hr Q2H30M PRN IV PATENCY; Start 07/30/19 at 13:26; Stop 07/31/19 at 01:25; Status DC Info (PHARMACY MONITORING -- do not chart) 1 each PRN DAILY PRN MC SEE COMMENTS; Start 07/30/19 at 13:30; Stop 07/30/19 at 13:33; Status DC Info (PHARMACY MONITORING -- do not chart) 1 each PRN DAILY PRN MC SEE COMMENTS; Start 07/30/19 at 13:30; Stop 07/30/19 at 13:34; Status DC Sodium Chloride 90 meq/Potassium Phosphate 19 mmol/ Magnesium Sulfate 12 meq/Calcium Gluconate 15 meq/ Multivitamins 10 ml/Chromium/ Copper/Manganese/ Seleni/Zn 0.5 ml/ Insulin Human Regular 40 unit/ Total Parenteral Nutrition/Amino Acids/Dextrose/ Fat Emulsion Intravenous 1,400 ml @ 58.333 mls/ hr TPN CONT IV Last administered on 07/31/19at 21:54; Start 07/31/19 at 22:00; Stop 08/01/19 at 21:59; Status DC Sodium Chloride 1,000 ml @ 1,000 mls/hr Q1H PRN IV hypotension; Start 08/01/19 at 09:35; Stop 08/01/19 at 15:34; Status DC Albumin Human 200 ml @ 200 mls/hr 1X PRN PRN IV Hypotension; Start 08/01/19 at 09:45; Stop 08/01/19 at 15:44; Status DC Diphenhydramine HCl (Benadryl) 25 mg 1X PRN PRN IV ITCHING; Start 08/01/19 at 09:45; Stop 08/02/19 at 09:44; Status DC Diphenhydramine HCl (Benadryl) 25 mg 1X PRN PRN IV ITCHING; Start 08/01/19 at 09:45; Stop 08/02/19 at 09:44; Status DC Sodium Chloride 1,000 ml @ 400 mls/hr Q2H30M PRN IV PATENCY; Start 08/01/19 at 09:35; Stop 08/01/19 at 21:34; Status DC Info (PHARMACY MONITORING -- do not chart) 1 each PRN DAILY PRN MC SEE COMMENTS; Start 08/01/19 at 09:45; Status Cancel Sodium Chloride 100 meq/Potassium Phosphate 19 mmol/ Magnesium Sulfate 12 meq/Calcium Gluconate 15 meq/ Multivitamins 10 ml/Chromium/ Copper/Manganese/ Seleni/Zn 0.5 ml/ Insulin Human Regular 40 unit/ Potassium Chloride 20 meq/ Total Parenteral Nutrition/Amino Acids/Dextrose/ Fat Emulsion Intravenous 1,400 ml @ 58.333 mls/ hr TPN CONT IV Last administered on 08/01/19at 22:02; Start 08/01/19 at 22:00; Stop 08/02/19 at 21:59; Status DC Furosemide (Lasix) 40 mg 1X ONCE IVP Last administered on 08/01/19at 14:39; Start 08/01/19 at 14:30; Stop 08/01/19 at 14:31; Status DC Metronidazole 100 ml @ 100 mls/hr Q8HRS IV Last administered on 08/09/19at 06:04; Start 08/02/19 at 10:00; Stop 08/09/19 at 08:10; Status DC Sodium Chloride 1,000 ml @ 1,000 mls/hr Q1H PRN IV hypotension; Start 08/02/19 at 08:00; Stop 08/02/19 at 13:59; Status DC Albumin Human 200 ml @ 200 mls/hr 1X PRN PRN IV Hypotension; Start 08/02/19 at 08:00; Stop 08/02/19 at 13:59; Status DC Sodium Chloride 1,000 ml @ 400 mls/hr Q2H30M PRN IV PATENCY; Start 08/02/19 at 08:00; Stop 08/02/19 at 19:59; Status DC Info (PHARMACY MONITORING -- do not chart) 1 each PRN DAILY PRN MC SEE COMMENTS; Start 08/02/19 at 11:30; Status UNV Info (PHARMACY MONITORING -- do not chart) 1 each PRN DAILY PRN MC SEE COMMENTS; Start 08/02/19 at 11:30; Stop 08/04/19 at 12:13; Status DC Sodium Chloride 100 meq/Potassium Phosphate 19 mmol/ Magnesium Sulfate 12 meq/Calcium Gluconate 15 meq/ Multivitamins 10 ml/Chromium/ Copper/Manganese/ Seleni/Zn 0.5 ml/ Insulin Human Regular 40 unit/ Potassium Chloride 20 meq/ Total Parenteral Nutrition/Amino Acids/Dextrose/ Fat Emulsion Intravenous 1,400 ml @ 58.333 mls/ hr TPN CONT IV Last administered on 08/02/19at 21:52; Start 08/02/19 at 22:00; Stop 08/03/19 at 21:59; Status DC Sodium Chloride (Normal Saline Flush) 10 ml QSHIFT PRN IV AFTER MEDS AND BLOOD DRAWS; Start 08/02/19 at 15:00; Stop 08/30/19 at 11:27; Status DC Sodium Chloride (Normal Saline Flush) 10 ml PRN Q5MIN PRN IV AFTER MEDS AND BLOOD DRAWS; Start 08/02/19 at 15:00 Sodium Chloride (Normal Saline Flush) 20 ml PRN Q5MIN PRN IV AFTER MEDS AND BLOOD DRAWS; Start 08/02/19 at 15:00 Sodium Chloride 100 meq/Potassium Phosphate 19 mmol/ Magnesium Sulfate 12 meq/Calcium Gluconate 15 meq/ Multivitamins 10 ml/Chromium/ Copper/Manganese/ Seleni/Zn 0.5 ml/ Insulin Human Regular 40 unit/ Potassium Chloride 20 meq/ Total Parenteral Nutrition/Amino Acids/Dextrose/ Fat Emulsion Intravenous 1,400 ml @ 58.333 mls/ hr TPN CONT IV Last administered on 08/03/19at 21:20; Start 08/03/19 at 22:00; Stop 08/04/19 at 21:59; Status DC Lidocaine HCl (Buffered Lidocaine 1%) 3 ml STK-MED ONCE .ROUTE ; Start 08/03/19 at 13:16; Stop 08/03/19 at 13:16; Status DC Lidocaine HCl (Buffered Lidocaine 1%) 6 ml 1X ONCE INJ Last administered on 08/03/19at 13:45; Start 08/03/19 at 13:30; Stop 08/03/19 at 13:31; Status DC Albumin Human 100 ml @ 100 mls/hr 1X ONCE IV Last administered on 08/03/19at 15:41; Start 08/03/19 at 15:00; Stop 08/03/19 at 15:59; Status DC Albumin Human 50 ml @ 50 mls/hr 1X ONCE IV Last administered on 08/03/19at 1 5:00; Start 08/03/19 at 15:00; Stop 08/03/19 at 15:59; Status DC Info (PHARMACY MONITORING -- do not chart) 1 each PRN DAILY PRN MC SEE COMMENTS; Start 08/04/19 at 11:30; Status Cancel Info (PHARMACY MONITORING -- do not chart) 1 each PRN DAILY PRN MC SEE COMMENTS; Start 08/04/19 at 11:30; Status UNV Sodium Chloride 100 meq/Potassium Phosphate 10 mmol/ Magnesium Sulfate 12 meq /Calcium Gluconate 15 meq/ Multivitamins 10 ml/Chromium/ Copper/Manganese/ Seleni/Zn 0.5 ml/ Insulin Human Regular 35 unit/ Potassium Chloride 20 meq/ Total Parenteral Nutrition/Amino Acids/Dextrose/ Fat Emulsion Intravenous 1,400 ml @ 58.333 mls/ hr TPN CONT IV Last administered on 08/04/19at 22:10; Start 08/04/19 at 22:00; Stop 08/05/19 at 21:59; Status DC Sodium Chloride 100 meq/Potassium Phosphate 5 mmol/ Magnesium Sulfate 12 meq/Calcium Gluconate 15 meq/ Multivitamins 10 ml/Chromium/ Copper/Manganese/ Seleni/Zn 0.5 ml/ Insulin Human Regular 35 unit/ Potassium Chloride 20 meq/ Total Parenteral Nutrition/Amino Acids/Dextrose/ Fat Emulsion Intravenous 1,400 ml @ 58.333 mls/ hr TPN CONT IV Last administered on 08/05/19at 22:59; Start 08/05/19 at 22:00; Stop 08/06/19 at 21:59; Status DC Sodium Chloride 1,000 ml @ 1,000 mls/hr Q1H PRN IV hypotension; Start 08/06/19 at 08:27; Stop 08/06/19 at 14:26; Status DC Albumin Human 200 ml @ 200 mls/hr 1X PRN PRN IV Hypotension Last administered on 08/06/19at 09:18; Start 08/06/19 at 08:30; Stop 08/06/19 at 14:29; Status DC Sodium Chloride 1,000 ml @ 400 mls/hr Q2H30M PRN IV PATENCY; Start 08/06/19 at 08:27; Stop 08/06/19 at 20:26; Status DC Info (PHARMACY MONITORING -- do not chart) 1 each PRN DAILY PRN MC SEE COMMENTS; Start 08/06/19 at 08:30; Status Cancel Info (PHARMACY MONITORING -- do not chart) 1 each PRN DAILY PRN MC SEE COM MENTS; Start 08/06/19 at 08:30; Stop 08/14/19 at 13:10; Status DC Sodium Chloride 100 meq/Potassium Chloride 40 meq/ Magnesium Sulfate 15 meq/Calcium Gluconate 15 meq/ Multivitamins 10 ml/Chromium/ Copper/Manganese/ Seleni/Zn 0.5 ml/ Insulin Human Regular 35 unit/ Total Parenteral Nutrition/Amino Acids/Dextrose/ Fat Emulsion Intravenous 1,400 ml @ 58.333 mls/ hr TPN CONT IV Last administered on 08/06/19at 22:00; Start 08/06/19 at 22:00; Stop 08/07/19 at 21:59; Status DC Potassium Chloride/Water 100 ml @ 100 mls/hr 1X ONCE IV Last administered on 08/06/19at 17:28; Start 08/06/19 at 14:45; Stop 08/06/19 at 15:44; Status DC Sodium Chloride 100 meq/Potassium Chloride 40 meq/ Magnesium Sulfate 15 meq/Calcium Gluconate 15 meq/ Multivitamins 10 ml/Chromium/ Copper/Manganese/ Seleni/Zn 0.5 ml/ Insulin Human Regular 35 unit/ Total Parenteral Nutrition/Amino Acids/Dextrose/ Fat Emulsion Intravenous 1,400 ml @ 58.333 mls/ hr TPN CONT IV Last administered on 08/07/19at 22:46; Start 08/07/19 at 22:00; Stop 08/08/19 at 21:59; Status DC Sodium Chloride 100 meq/Potassium Chloride 40 meq/ Magnesium Sulfate 20 meq/Calcium Gluconate 15 meq/ Multivitamins 10 ml/Chromium/ Copper/Manganese/ Seleni/Zn 0.5 ml/ Insulin Human Regular 35 unit/ Total Parenteral Nutrition/Amino Acids/Dextrose/ Fat Emulsion Intravenous 1,400 ml @ 58.333 mls/ hr TPN CONT IV Last administered on 08/08/19at 22:31; Start 08/08/19 at 22:00; Stop 08/09/19 at 21:59; Status DC Fentanyl Citrate (Fentanyl 2ml Vial) 50 mcg PRN Q2HR PRN IVP PAIN Last admi nistered on 08/15/19at 13:32; Start 08/08/19 at 21:00; Stop 08/16/19 at 12:53; Status DC Fentanyl Citrate (Fentanyl 2ml Vial) 25 mcg PRN Q2HR PRN IVP PAIN; Start 08/08/19 at 21:00; Stop 08/16/19 at 12:54; Status DC Enoxaparin Sodium (Lovenox 100mg Syringe) 100 mg Q12HR SQ ; Start 08/09/19 at 21:00; Status UNV Amino Acids/ Glycerin/ Electrolytes 1,000 ml @ 75 mls/hr [id number] IV ; Start 08/08/19 at 21:15; Status UNV Sodium Chloride 1,000 ml @ 1,000 mls/hr Q1H PRN IV hypotension; Start 08/09/19 at 07:56; Stop 08/09/19 at 13:55; Status DC Albumin Human 200 ml @ 200 mls/hr 1X PRN PRN IV Hypotension Last administered on 08/09/19at 08:40; Start 08/09/19 at 08:00; Stop 08/09/19 at 13:59; Status DC Sodium Chloride 1,000 ml @ 400 mls/hr Q2H30M PRN IV PATENCY; Start 08/09/19 at 07:56; Stop 08/09/19 at 19:55; Status DC Info (PHARMACY MONITORING -- do not chart) 1 each PRN DAILY PRN MC SEE COMMENTS; Start 08/09/19 at 08:00; Status UNV Info (PHARMACY MONITORING -- do not chart) 1 each PRN DAILY PRN MC SEE COMM ENTS; Start 08/09/19 at 08:00; Status UNV Daptomycin 430 mg/ Sodium Chloride 50 ml @ 100 mls/hr Q24H IV Last administered on 08/09/19at 12:35; Start 08/09/19 at 09:00; Stop 08/09/19 at 12:49; Status DC Sodium Chloride 100 meq/Potassium Chloride 40 meq/ Magnesium Sulfate 20 meq/Calcium Gluconate 15 meq/ Multivitamins 10 ml/Chromium/ Copper/Manganese/ Seleni/Zn 0.5 ml/ Insulin Human Regular 35 unit/ Total Parenteral Nutrition/Amino Acids/Dextrose/ Fat Emulsion Intravenous 1,400 ml @ 58.333 mls/ hr TPN CONT IV Last administered on 08/09/19at 21:26; Start 08/09/19 at 22:00; Stop 08/10/19 at 21:59; Status DC Daptomycin 430 mg/ Sodium Chloride 50 ml @ 100 mls/hr Q48H IV ; Start 08/11/19 at 09:00; Stop 08/10/19 at 11:55; Status DC Sodium Chloride 100 meq/Potassium Chloride 40 meq/ Magnesium Sulfate 20 meq/Calcium Gluconate 15 meq/ Multivitamins 10 ml/Chromium/ Copper/Manganese/ Seleni/Zn 0.5 ml/ Insulin Human Regular 35 unit/ Total Parenteral Nutrition/Amino Acids/Dextrose/ Fat Emulsion Intravenous 1,400 ml @ 58.333 mls/ hr TPN CONT IV Last administered on 08/10/19at 22:27; Start 08/10/19 at 22:00; Stop 08/11/19 at 21:59; Status DC Daptomycin 430 mg/ Sodium Chloride 50 ml @ 100 mls/hr Q24H IV Last administered on 08/12/19at 15:07; Start 08/10/19 at 13:00; Stop 08/13/19 at 13:15; Status DC Sodium Chloride 100 meq/Potassium Chloride 40 meq/ Magnesium Sulfate 20 meq/Calcium Gluconate 10 meq/ Multivitamins 10 ml/Chromium/ Copper/Manganese/ Seleni/Zn 0.5 ml/ Insulin Human Regular 35 unit/ Total Parenteral Nutr ition/Amino Acids/Dextrose/ Fat Emulsion Intravenous 1,400 ml @ 58.333 mls/ hr TPN CONT IV Last administered on 08/12/19at 00:06; Start 08/11/19 at 22:00; Stop 08/12/19 at 21:59; Status DC Alteplase, Recombinant (Cathflo For Central Catheter Clearance) 1 mg 1X ONCE INT CAT Last administered on 08/12/19at 11:44; Start 08/12/19 at 10:45; Stop 08/12/19 at 10:46; Status DC Ondansetron HCl (Zofran) 4 mg PRN Q6HRS PRN IV NAUSEA/VOMITING; Start 08/15/19 at 07:00; Stop 08/16/19 at 06:59; Status DC Fentanyl Citrate (Fentanyl 2ml Vial) 25 mcg PRN Q5MIN PRN IV MILD PAIN 1-3; Start 08/15/19 at 07:00; Stop 08/16/19 at 06:59; Status DC Fentanyl Citrate (Fentanyl 2ml Vial) 50 mcg PRN Q5MIN PRN IV MODERATE TO SEVERE PAIN Last administered on 08/15/19at 10:17; Start 08/15/19 at 07:00; Stop 08/16/19 at 06:59; Status DC Ringer's Solution 1,000 ml @ 30 mls/hr Q24H IV ; Start 08/15/19 at 07:00; Stop 08/15/19 at 18:59; Status DC Lidocaine HCl (Xylocaine-Mpf 1% 2ml Vial) 2 ml PRN 1X PRN ID PRIOR TO IV START; Start 08/15/19 at 07:00; Stop 08/16/19 at 06:59; Status DC Prochlorperazine Edisylate (Compazine) 5 mg PACU PRN PRN IV NAUSEA, MRX1; St art 08/15/19 at 07:00; Stop 08/16/19 at 06:59; Status DC Sodium Acetate 50 meq/Potassium Acetate 55 meq/ Magnesium Sulfate 20 meq/Calcium Gluconate 10 meq/ Multivitamins 10 ml/Chromium/ Copper/Manganese/ Seleni/Zn 0.5 ml/ Insulin Human Regular 35 unit/ Total Parenteral Nutrition/Amino Acids/Dextrose/ Fat Emulsion Intravenous 1,400 ml @ 58.333 mls/ hr TPN CONT IV ; Start 08/12/19 at 22:00; Stop 08/12/19 at 14:15; Status DC Sodium Acetate 50 meq/Potassium Acetate 55 meq/ Magnesium Sulfate 20 meq/Calcium Gluconate 10 meq/ Multivitamins 10 ml/Chromium/ Copper/Manganese/ Seleni/Zn 0.5 ml/ Insulin Human Regular 35 unit/ Total Parenteral Nutrition/Amino Acids/Dextrose/ Fat Emulsion Intravenous 1,800 ml @ 75 mls/hr TPN CONT IV Last administered on 08/12/19at 22:38; Start 08/12/19 at 22:00; Stop 08/13/19 at 21:59; Status DC Sodium Chloride 1,000 ml @ 1,000 mls/hr Q1H PRN IV hypotension; Start 08/12/19 at 15:31; Stop 08/12/19 at 21:30; Status DC Diphenhydramine HCl (Benadryl) 25 mg 1X PRN PRN IV ITCHING; Start 08/12/19 at 15:45; Stop 08/13/19 at 15:44; Status DC Diphenhydramine HCl (Benadryl) 25 mg 1X PRN PRN IV ITCHING; Start 08/12/19 at 15:45; Stop 08/13/19 at 15:44; Status DC Sodium Chloride 1,000 ml @ 400 mls/hr Q2H30M PRN IV PATENCY; Start 08/12/19 at 15:31; Stop 08/13/19 at 03:30; Status DC Info (PHARMACY MONITORING -- do not chart) 1 each PRN DAILY PRN MC SEE COMMENTS; Start 08/12/19 at 15:45; Stop 09/13/19 at 14:14; Status DC Sodium Acetate 50 meq/Potassium Acetate 55 meq/ Magnesium Sulfate 20 meq/Calcium Gluconate 10 meq/ Multivitamins 10 ml/Chromium/ Copper/Manganese/ Seleni/Zn 0.5 ml/ Insulin Human Regular 35 unit/ Total Parenteral Nutrition/Amino Acids/Dextrose/ Fat Emulsion Intravenous 1,800 ml @ 75 mls/hr TPN CONT IV Last administered on 08/13/19at 22:03; Start 08/13/19 at 22:00; Stop 08/14/19 at 21:59; Status DC Daptomycin 430 mg/ Sodium Chloride 50 ml @ 100 mls/hr Q24H IV Last administered on 08/18/19at 13:00; Start 08/13/19 at 13:00; Stop 08/18/19 at 20:58; Status DC Heparin Sodium (Porcine) 1000 unit/Sodium Chloride 1,001 ml @ 1,001 mls/hr 1X ONCE IRR ; Start 08/15/19 at 06:00; Stop 08/15/19 at 06:59; Status DC Potassium Acetate 55 meq/Magnesium Sulfate 20 meq/ Calcium Gluconate 10 meq/ Multivitamins 10 ml/Chromium/ Copper/Manganese/ Seleni/Zn 0.5 ml/ Insulin Human Regular 35 unit/ Total Parenteral Nutrition/Amino Acids/Dextrose/ Fat Emulsion Intravenous 1,920 ml @ 80 mls/hr TPN CONT IV Last administered on 08/14/19at 22:10; Start 08/14/19 at 22:00; Stop 08/15/19 at 21:59; Status DC Dexamethasone Sodium Phosphate (Decadron) 4 mg STK-MED ONCE .ROUTE ; Start 08/15/19 at 10:56; Stop 08/15/19 at 10:57; Status DC Ondansetron HCl (Zofran) 4 mg STK-MED ONCE .ROUTE ; Start 08/15/19 at 10:56; Stop 08/15/19 at 10:57; Status DC Rocuronium [place] (Zemuron) 50 mg STK-MED ONCE .ROUTE ; Start 08/15/19 at 10:56; Stop 08/15/19 at 10:57; Status DC Fentanyl Citrate (Fentanyl 2ml Vial) 100 mcg STK-MED ONCE .ROUTE ; Start 08/15/19 at 10:56; Stop 08/15/19 at 10:57; Status DC Bupivacaine HCl/ Epinephrine Bitart (Sensorcain-Epi 0.5%-1:[id number] Mpf) 30 ml STK-MED ONCE .ROUTE Last administered on 08/15/19at 12:01; Start 08/15/19 at 10:58; Stop 08/15/19 at 10:58; Status DC Cellulose (Surgicel Hemostat 2x14) 1 each STK-MED ONCE .ROUTE ; Start 08/15/19 at 10:58; Stop 08/15/19 at 10:59; Status DC Iohexol (Omnipaque 300 Mg/ml) 50 ml STK-MED ONCE .ROUTE ; Start 08/15/19 at 10:58; Stop 08/15/19 at 10:59; Status DC Cellulose (Surgicel Hemostat 4x8) 1 each STK-MED ONCE .ROUTE ; Start 08/15/19 at 10:58; Stop 08/15/19 at 10:59; Status DC Bisacodyl (Dulcolax Supp) 10 mg STK-MED ONCE .ROUTE ; Start 08/15/19 at 10:59; Stop 08/15/19 at 10:59; Status DC Heparin Sodium (Porcine) 1000 unit/Sodium Chloride 1,001 ml @ 1,001 mls/hr 1X ONCE IRR ; Start 08/15/19 at 12:00; Stop 08/15/19 at 12:59; Status DC Propofol 20 ml @ As Directed STK-MED ONCE IV ; Start 08/15/19 at 11:05; Stop 08/15/19 at 11:05; Status DC Sevoflurane (Ultane) 90 ml STK-MED ONCE IH ; Start 08/15/19 at 11:05; Stop 08/15/19 at 11:05; Status DC Sevoflurane (Ultane) 60 ml STK-MED ONCE IH ; Start 08/15/19 at 12:26; Stop 08/15/19 at 12:27; Status DC Propofol 20 ml @ As Directed STK-MED ONCE IV ; Start 08/15/19 at 12:26; Stop 08/15/19 at 12:27; Status DC Phenylephrine HCl (PHENYLEPHRINE in 0.9% NACL PF) 1 mg STK-MED ONCE IV ; Start 08/15/19 at 12:34; Stop 08/15/19 at 12:34; Status DC Heparin Sodium (Porcine) (Heparin Sodium) 5,000 unit Q12HR SQ Last administered on 08/24/19at 20:57; Start 08/15/19 at 21:00; Stop 08/25/19 at 09:59; Status DC Sodium Chloride (Normal Saline Flush) 3 ml QSHIFT PRN IV AFTER MEDS AND BLOOD DRAWS; Start 08/15/19 at 13:45; Status Cancel Naloxone HCl (Narcan) 0.4 mg PRN Q2MIN PRN IV SEE INSTRUCTIONS Last administered on 09/24/19at 15:15; Start 08/15/19 at 13:45; Stop 10/19/19 at 16:00; Status DC Sodium Chloride 1,000 ml @ 25 mls/hr Q24H IV Last administered on 09/13/19at 13:37; Start 08/15/19 at 13:37; Stop 09/16/19 at 13:09; Status DC Naloxone HCl (Narcan) 0.4 mg PRN Q2MIN PRN IV SEE INSTRUCTIONS; Start 08/15/19 at 14:30; Status UNV Sodium Chloride 1,000 ml @ 25 mls/hr Q24H IV ; Start 08/15/19 at 14:30; Status UNV Hydromorphone HCl 30 ml @ 0 mls/hr CONT PRN PRN IV PER PROTOCOL Last administered on 08/20/19at 16:08; Start 08/15/19 at 14:30; Stop 08/22/19 at 08:55; Status DC Potassium Acetate 55 meq/Magnesium Sulfate 20 meq/ Calcium Gluconate 10 meq/ Multivitamins 10 ml/Chromium/ Copper/Manganese/ Seleni/Zn 0.5 ml/ Insulin Human Regular 35 unit/ Total Parenteral Nutrition/Amino Acids/Dextrose/ Fat Emulsion Intravenous 1,920 ml @ 80 mls/hr TPN CONT IV Last administered on 08/15/19at 22:01; Start 08/15/19 at 22:00; Stop 08/16/19 at 21:59; Status DC Bumetanide (Bumex) 2 mg [id number] IV Last administered on 08/19/19at 13:50; Start 08/16/19 at 14:00; Stop 08/20/19 at 14:10; Status DC Meropenem 1 gm/ Sodium Chloride 100 ml @ 200 mls/hr Q8HRS IV Last administered on 09/09/19at 05:53; Start 08/16/19 at 14:00; Stop 09/09/19 at 09:31; Status DC Potassium Acetate 55 meq/Magnesium Sulfate 20 meq/ Calcium Gluconate 10 meq/ Multivitamins 10 ml/Chromium/ Copper/Manganese/ Seleni/Zn 0.5 ml/ Insulin Human Regular 35 unit/ Total Parenteral Nutrition/Amino Acids/Dextrose/ Fat Emulsion Intravenous 1,920 ml @ 80 mls/hr TPN CONT IV Last administered on 08/16/19at 22:02; Start 08/16/19 at 22:00; Stop 08/17/19 at 21:59; Status DC Hydromorphone HCl (Dilaudid Standard RECORDS ANALYST) 12 mg STK-MED ONCE IV ; Start 08/15/19 at 14:35; Stop 08/16/19 at 13:53; Status DC Artificial Tears (Artificial Tears) 1 drop PRN Q15MIN PRN OU DRY EYE Last administered on 10/11/19at 21:17; Start 08/17/19 at 05:30 Hydromorphone HCl (Dilaudid Standard RECORDS ANALYST) 12 mg STK-MED ONCE IV ; Start 08/16/19 at 12:05; Stop 08/17/19 at 09:15; Status DC Potassium Acetate 65 meq/Magnesium Sulfate 20 meq/ Calcium Gluconate 10 meq/ Multivitamins 10 ml/Chromium/ Copper/Manganese/ Seleni/Zn 0.5 ml/ Insulin Human Regular 30 unit/ Total Parenteral Nutrition/Amino Acids/Dextrose/ Fat Emulsion Intravenous 1,920 ml @ 80 mls/hr TPN CONT IV Last administered on 08/17/19at 22:22; Start 08/17/19 at 22:00; Stop 08/18/19 at 21:59; Status DC Cyclobenzaprine HCl (Flexeril) 10 mg PRN Q6HRS PRN PO MUSCLE SPASMS Last administered on 10/26/19at 21:14; Start 08/18/19 at 10:45 Potassium Acetate 55 meq/Magnesium Sulfate 20 meq/ Calcium Gluconate 10 meq/ Multivitamins 10 ml/Chromium/ Copper/Manganese/ Seleni/Zn 0.5 ml/ Insulin Human Regular 30 unit/ Total Parenteral Nutrition/Amino Acids/Dextrose/ Fat Emulsion Intravenous 1,920 ml @ 80 mls/hr TPN CONT IV Last administered on 08/19/19at 01:00; Start 08/18/19 at 22:00; Stop 08/19/19 at 21:59; Status DC Magnesium Sulfate 50 ml @ 25 mls/hr 1X ONCE IV Last administered on 08/18/19at 17:18; Start 08/18/19 at 12:45; Stop 08/18/19 at 14:44; Status DC Potassium Chloride/Water 100 ml @ 100 mls/hr 1X ONCE IV Last administered on 08/19/19at 11:27; Start 08/19/19 at 12:00; Stop 08/19/19 at 12:59; Status DC Hydromorphone HCl (Dilaudid Standard RECORDS ANALYST) 12 mg STK-MED ONCE IV ; Start 08/17/19 at 10:50; Stop 08/19/19 at 11:02; Status DC Hydromorphone HCl (Dilaudid Standard RECORDS ANALYST) 12 mg STK-MED ONCE IV ; Start 08/18/19 at 13:47; Stop 08/19/19 at 11:03; Status DC Potassium Acetate 30 meq/Magnesium Sulfate 20 meq/ Calcium Gluconate 10 meq/ Multivitamins 10 ml/Chromium/ Copper/Manganese/ Seleni/Zn 0.5 ml/ Insulin Human Regular 30 unit/ Potassium Chloride 30 meq/ Total Parenteral Nutrition/Amino Acids/Dextrose/ Fat Emulsion Intravenous 1,920 ml @ 80 mls/hr TPN CONT IV Last administered on 08/19/19at 22:34; Start 08/19/19 at 22:00; Stop 08/20/19 at 21:59; Status DC Potassium Chloride/Water 100 ml @ 100 mls/hr Q1H IV Last administered on 08/20/19at 13:05; Start 08/20/19 at 07:00; Stop 08/20/19 at 10:59; Status DC Magnesium Sulfate 50 ml @ 25 mls/hr 1X ONCE IV Last administered on 08/20/19at 10:34; Start 08/20/19 at 10:30; Stop 08/20/19 at 12:29; Status DC Potassium Chloride 75 meq/ Magnesium Sulfate 20 meq/Calcium Gluconate 10 meq/ Multivitamins 10 ml/Chromium/ Copper/Manganese/ Seleni/Zn 0.5 ml/ Insulin Human Regular 30 unit/ Total Parenteral Nutrition/Amino Acids/Dextrose/ Fat Emulsion Intravenous 1,920 ml @ 80 mls/hr TPN CONT IV Last administered on 08/20/19at 21:51; Start 08/20/19 at 22:00; Stop 08/21/19 at 22:00; Status DC Potassium Chloride 75 meq/ Magnesium Sulfate 20 meq/Calcium Gluconate 10 meq/ Multivitamins 10 ml/Chromium/ Copper/Manganese/ Seleni/Zn 0.5 ml/ Insulin Human Regular 25 unit/ Total Parenteral Nutrition/Amino Acids/Dextrose/ Fat Emulsion Intravenous 1,920 ml @ 80 mls/hr TPN CONT IV Last administered on 08/21/19at 22:04; Start 08/21/19 at 22:00; Stop 08/22/19 at 21:59; Status DC Hydromorphone HCl (Dilaudid) 0.4 mg PRN Q4HRS PRN IVP PAIN Last administered on 08/22/19at 10:57; Start 08/22/19 at 09:00; Stop 08/22/19 at 18:59; Status DC Micafungin Sodium 100 mg/Dextrose 100 ml @ 100 mls/hr Q24H IV Last administered on 09/13/19at 12:17; Start 08/22/19 at 11:00; Stop 09/14/19 at 09:59; Status DC Daptomycin 485 mg/ Sodium Chloride 50 ml @ 100 mls/hr Q24H IV Last administered on 08/29/19at 13:10; Start 08/22/19 at 11:00; Stop 08/30/19 at 07:44; Status DC Potassium Chloride 75 meq/ Magnesium Sulfate 15 meq/Calcium Gluconate 8 meq/ Multivitamins 10 ml/Chromium/ Copper/Manganese/ Seleni/Zn 0.5 ml/ Insulin Human Regular 25 unit/ Total Parenteral Nutrition/Amino Acids/Dextrose/ Fat Emulsion Intravenous 1,920 ml @ 80 mls/hr TPN CONT IV Last administered on 08/22/19at 23:08; Start 08/22/19 at 22:00; Stop 08/23/19 at 21:59; Status DC Haloperidol Lactate (Haldol Inj) 3 mg 1X ONCE IVP Last administered on 08/22/19at 14:37; Start 08/22/19 at 14:30; Stop 08/22/19 at 14:31; Status DC Hydromorphone HCl (Dilaudid) 1 mg PRN Q4HRS PRN IVP PAIN Last administered on 09/05/19at 06:25; Start 08/22/19 at 19:00; Stop 09/05/19 at 17:10; Status DC Potassium Chloride 75 meq/ Magnesium Sulfate 15 meq/Calcium Gluconate 8 meq/ Multivitamins 10 ml/Chromium/ Copper/Manganese/ Seleni/Zn 0.5 ml/ Insulin Human Regular 20 unit/ Total Parenteral Nutrition/Amino Acids/Dextrose/ Fat Emulsion Intravenous 1,920 ml @ 80 mls/hr TPN CONT IV Last administered on 08/23/19at 22:10; Start 08/23/19 at 22:00; Stop 08/24/19 at 21:59; Status DC Lidocaine HCl (Buffered Lidocaine 1%) 3 ml STK-MED ONCE .ROUTE ; Start 08/24/19 at 11:31; Stop 08/24/19 at 11:31; Status DC Lidocaine HCl (Buffered Lidocaine 1%) 3 ml STK-MED ONCE .ROUTE ; Start 08/24/19 at 12:28; Stop 08/24/19 at 12:29; Status DC Lidocaine HCl (Buffered Lidocaine 1%) 6 ml 1X ONCE INJ Last administered on 08/24/19at 12:53; Start 08/24/19 at 12:45; Stop 08/24/19 at 12:46; Status DC Potassium Chloride 75 meq/ Magnesium Sulfate 15 meq/Calcium Gluconate 8 meq/ Multivitamins 10 ml/Chromium/ Copper/Manganese/ Seleni/Zn 0.5 ml/ Insulin Human Regular 20 unit/ Total Parenteral Nutrition/Amino Acids/Dextrose/ Fat Emulsion Intravenous 1,920 ml @ 80 mls/hr TPN CONT IV Last administered on 08/24/19at 22:00; Start 08/24/19 at 22:00; Stop 08/25/19 at 21:59; Status DC Potassium Chloride 75 meq/ Magnesium Sulfate 15 meq/Calcium Gluconate 8 meq/ Multivitamins 10 ml/Chromium/ Copper/Manganese/ Seleni/Zn 0.5 ml/ Insulin Human Regular 15 unit/ Total Parenteral Nutrition/Amino Acids/Dextrose/ Fat Emulsion Intravenous 1,920 ml @ 80 mls/hr TPN CONT IV Last administered on 08/25/19at 22:28; Start 08/25/19 at 22:00; Stop 08/26/19 at 21:59; Status DC Vecuronium [place] (Norcuron Bolus) 6 mg PRN Q6HRS PRN IV VENT ASYNCHRONY; Start 08/25/19 at 19:15; Stop 08/25/19 at 19:35; Status DC Bumetanide (Bumex) 2 mg 1X ONCE IV Last administered on 08/25/19at 22:09; Start 08/25/19 at 19:45; Stop 08/25/19 at 19:46; Status DC Lidocaine HCl (Buffered Lidocaine 1%) 3 ml STK-MED ONCE .ROUTE ; Start 08/26/19 at 07:59; Stop 08/26/19 at 07:59; Status DC Midazolam HCl (Versed) 5 mg STK-MED ONCE .ROUTE ; Start 08/26/19 at 08:36; Stop 08/26/19 at 08:36; Status DC Fentanyl Citrate (Fentanyl 5ml Vial) 250 mcg STK-MED ONCE .ROUTE ; Start 08/26/19 at 08:36; Stop 08/26/19 at 08:37; Status DC Lidocaine HCl (Buffered Lidocaine 1%) 3 ml 1X ONCE IJ Last administered on 08/26/19at 09:30; Start 08/26/19 at 09:15; Stop 08/26/19 at 09:16; Status DC Midazolam HCl (Versed) 5 mg 1X ONCE IV Last administered on 08/26/19at 09:30; Start 08/26/19 at 09:15; Stop 08/26/19 at 09:16; Status DC Fentanyl Citrate (Fentanyl 5ml Vial) 250 mcg 1X ONCE IV Last administered on 08/26/19at 09:30; Start 08/26/19 at 09:15; Stop 08/26/19 at 09:16; Status DC Bumetanide (Bumex) 2 mg DAILY IV Last administered on 09/05/19at 08:07; Start 08/26/19 at 10:00; Stop 09/05/19 at 17:15; Status DC Potassium Chloride 75 meq/ Magnesium Sulfate 15 meq/ Multivitamins 10 ml/Chromium/ Copper/Manganese/ Seleni/Zn 0.5 ml/ Insulin Human Regular 15 unit/ Total Parenteral Nutrition/Amino Acids/Dextrose/ Fat Emulsion Intravenous 1,920 ml @ 80 mls/hr TPN CONT IV Last administered on 08/26/19at 21:59; Start 08/26/19 at 22:00; Stop 08/27/19 at 21:59; Status DC Metoclopramide HCl (Reglan Vial) 10 mg PRN Q3HRS PRN IVP NAUSEA/VOMITING-3rd choice Last administered on 09/01/19at 04:25; Start 08/27/19 at 16:45 Potassium Chloride 75 meq/ Magnesium Sulfate 15 meq/ Multivitamins 10 ml/Chromium/ Copper/Manganese/ Seleni/Zn 0.5 ml/ Insulin Human Regular 15 unit/ Total Parenteral Nutrition/Amino Acids/Dextrose/ Fat Emulsion Intravenous 1,920 ml @ 80 mls/hr TPN CONT IV Last administered on 08/27/19at 22:41; Start 08/27/19 at 22:00; Stop 08/28/19 at 21:59; Status DC Magnesium Sulfate 50 ml @ 25 mls/hr 1X ONCE IV Last administered on 08/28/19at 10:44; Start 08/28/19 at 09:00; Stop 08/28/19 at 10:59; Status DC Potassium Chloride/Water 100 ml @ 100 mls/hr 1X ONCE IV Last administered on 08/28/19at 09:37; Start 08/28/19 at 09:00; Stop 08/28/19 at 09:59; Status DC Duloxetine HCl (Cymbalta) 30 mg DAILY PO Last administered on 08/29/19at 09:48; Start 08/28/19 at 14:00; Stop 08/31/19 at 10:25; Status DC Potassium Chloride 80 meq/ Magnesium Sulfate 20 meq/ Multivitamins 10 ml/Chromi um/ Copper/Manganese/ Seleni/Zn 0.5 ml/ Insulin Human Regular 15 unit/ Total Parenteral Nutrition/Amino Acids/Dextrose/ Fat Emulsion Intravenous 1,920 ml @ 80 mls/hr TPN CONT IV Last administered on 08/28/19at 21:42; Start 08/28/19 at 22:00; Stop 08/29/19 at 21:59; Status DC Potassium Chloride 80 meq/ Magnesium Sulfate 20 meq/ Multivitamins 10 ml/Chromium/ Copper/Manganese/ Seleni/Zn 0.5 ml/ Insulin Human Regular 15 unit/ Total Parenteral Nutrition/Amino Acids/Dextrose/ Fat Emulsion Intravenous 1,920 ml @ 80 mls/hr TPN CONT IV Last administered on 08/29/19at 22:20; Start 08/29/19 at 22:00; Stop 08/30/19 at 21:59; Status DC Lidocaine HCl (Buffered Lidocaine 1%) 3 ml STK-MED ONCE .ROUTE ; Start 08/30/19 at 09:54; Stop 08/30/19 at 09:55; Status DC Hydromorphone HCl (Dilaudid Standard RECORDS ANALYST) 12 mg STK-MED ONCE IV ; Start 08/19/19 at 15:50; Stop 08/30/19 at 11:24; Status DC Potassium Chloride 80 meq/ Magnesium Sulfate 20 meq/ Multivitamins 10 ml/Chromium/ Copper/Manganese/ Seleni/Zn 0.5 ml/ Insulin Human Regular 15 unit/ Total Parenteral Nutrition/Amino Acids/Dextrose/ Fat Emulsion Intravenous 1,920 ml @ 80 mls/hr TPN CONT IV Last administered on 08/30/19at 21:40; Start 08/30/19 at 22:00; Stop 08/31/19 at 21:59; Status DC Lidocaine HCl (Buffered Lidocaine 1%) 6 ml 1X ONCE INJ Last administered on 08/30/19at 14:15; Start 08/30/19 at 14:15; Stop 08/30/19 at 14:16; Status DC Potassium Chloride 80 meq/ Magnesium Sulfate 20 meq/ Multivitamins 10 ml/Chromium/ Copper/Manganese/ Seleni/Zn 1 ml/ Insulin Human Regular 15 unit/ Total Parenteral Nutrition/Amino Acids/Dextrose/ Fat Emulsion Intravenous 1,920 ml @ 80 mls/hr TPN CONT IV Last administered on 08/31/19at 22:04; Start 08/31/19 at 22:00; Stop 09/01/19 at 21:59; Status DC Potassium Chloride/Water 100 ml @ 100 mls/hr 1X ONCE IV Last administered on 09/01/19at 11:34; Start 09/01/19 at 11:00; Stop 09/01/19 at 11:59; Status DC Potassium Chloride 90 meq/ Magnesium Sulfate 20 meq/ Multivitamins 10 ml/Chromium/ Copper/Manganese/ Seleni/Zn 1 ml/ Insulin Human Regular 15 unit/ Total Parenteral Nutrition/Amino Acids/Dextrose/ Fat Emulsion Intravenous 1,920 ml @ 80 mls/hr TPN CONT IV Last administered on 09/01/19at 22:57; Start 09/01/19 at 22:00; Stop 09/02/19 at 21:59; Status DC Potassium Chloride 90 meq/ Magnesium Sulfate 20 meq/ Multivitamins 10 ml/Chromium/ Copper/Manganese/ Seleni/Zn 1 ml/ Insulin Human Regular 15 unit/ Total Parenteral Nutrition/Amino Acids/Dextrose/ Fat Emulsion Intravenous 1,920 ml @ 80 mls/hr TPN CONT IV Last administered on 09/02/19at 22:48; Start 09/02/19 at 22:00; Stop 09/03/19 at 21:59; Status DC Potassium Chloride 90 meq/ Magnesium Sulfate 20 meq/ Multivitamins 10 ml/Chromium/ Copper/Manganese/ Seleni/Zn 1 ml/ Insulin Human Regular 15 unit/ Total Parenteral Nutrition/Amino Acids/Dextrose/ Fat Emulsion Intravenous 1,890 ml @ 78.75 mls/ hr TPN CONT IV Last administered on 09/03/19at 22:15; Start 09/03/19 at 22:00; Stop 09/04/19 at 21:59; Status DC Linezolid/Dextrose 300 ml @ 300 mls/hr Q12HR IV Last administered on 09/06/19at 21:08; Start 09/04/19 at 09:00; Stop 09/07/19 at 08:11; Status DC Daptomycin 450 mg/ Sodium Chloride 50 ml @ 100 mls/hr Q24H IV Last administered on 09/07/19at 09:25; Start 09/04/19 at 09:00; Stop 09/08/19 at 08:30; Status DC Potassium Chloride 90 meq/ Magnesium Sulfate 20 meq/ Multivitamins 10 ml/Chromium/ Copper/Manganese/ Seleni/Zn 1 ml/ Insulin Human Regular 15 unit/ Total Parenteral Nutrition/Amino Acids/Dextrose/ Fat Emulsion Intravenous 1,890 ml @ 78.75 mls/ hr TPN CONT IV Last administered on 09/04/19at 21:34; Start 09/04/19 at 22:00; Stop 09/05/19 at 21:59; Status DC Lorazepam (Ativan Inj) 2 mg STK-MED ONCE .ROUTE ; Start 09/04/19 at 14:58; Stop 09/04/19 at 14:58; Status DC Metoprolol Tartrate (Lopressor Vial) 5 mg 1X ONCE IVP Last administered on 09/04/19at 15:31; Start 09/04/19 at 15:15; Stop 09/04/19 at 15:16; Status DC Lorazepam (Ativan Inj) 2 mg 1X ONCE IVP Last administered on 09/04/19at 15:30; Start 09/04/19 at 15:15; Stop 09/04/19 at 15:16; Status DC Enoxaparin Sodium (Lovenox 40mg Syringe) 40 mg Q24H SQ Last administered on 09/23/19at 17:44; Start 09/04/19 at 17:00; Stop 09/25/19 at 06:50; Status DC Lorazepam (Ativan Inj) 1 mg PRN Q4HRS PRN IVP ANXIETY / AGITATION MILD-MOD Last administered on 09/18/19at 15:55; Start 09/04/19 at 19:15; Stop 09/20/19 at 11:45; Status DC Lorazepam (Ativan Inj) 2 mg PRN Q4HRS PRN IVP ANXIETY / AGITATION SEVERE Last administered on 09/19/19at 07:55; Start 09/04/19 at 19:15; Stop 09/20/19 at 11:45; Status DC Fentanyl Citrate (Fentanyl 2ml Vial) 50 mcg PRN Q4HRS PRN IVP SEVERE PAIN Last administered on 10/01/19at 05:15; Start 09/05/19 at 13:15; Stop 10/02/19 at 09:29; Status DC Fentanyl Citrate (Fentanyl 2ml Vial) 25 mcg PRN Q4HRS PRN IVP MODERATE PAIN Last administered on 10/01/19at 00:27; Start 09/05/19 at 13:15; Stop 10/02/19 at 09:30; Status DC Potassium Chloride 90 meq/ Magnesium Sulfate 20 meq/ Multivitamins 10 ml/Chromium/ Copper/Manganese/ Seleni/Zn 1 ml/ Insulin Human Regular 15 unit/ Total Parenteral Nutrition/Amino Acids/Dextrose/ Fat Emulsion Intravenous 1,890 ml @ 78.75 mls/ hr TPN CONT IV Last administered on 09/05/19at 22:18; Start 09/05/19 at 22:00; Stop 09/06/19 at 21:59; Status DC Furosemide (Lasix) 40 mg 1X ONCE IVP Last administered on 09/05/19at 21:51; Start 09/05/19 at 21:45; Stop 09/05/19 at 21:48; Status DC Albumin Human 100 ml @ 100 mls/hr 1X PRN PRN IV SEE COMMENTS; Start 09/06/19 at 01:30 Furosemide (Lasix) 40 mg [id number] IVP Last administered on 09/21/19at 08:04; Start 09/06/19 at 14:00; Stop 09/21/19 at 13:07; Status DC Potassium Chloride 90 meq/ Magnesium Sulfate 20 meq/ Multivitamins 10 ml/Chromium/ Copper/Manganese/ Seleni/Zn 1 ml/ Insulin Human Regular 15 unit/ Total Parenteral Nutrition/Amino Acids/Dextrose/ Fat Emulsion Intravenous 1,800 ml @ 75 mls/hr TPN CONT IV Last administered on 09/06/19at 22:31; Start 09/06/19 at 22:00; Stop 09/07/19 at 21:59; Status DC Potassium Chloride 90 meq/ Magnesium Sulfate 20 meq/ Multivitamins 10 ml/Chromium/ Copper/Manganese/ Seleni/Zn 1 ml/ Insulin Human Regular 15 unit/ Total Parenteral Nutrition/Amino Acids/Dextrose/ Fat Emulsion Intravenous 1,800 ml @ 75 mls/hr TPN CONT IV Last administered on 09/07/19at 22:28; Start 09/07/19 at 22:00; Stop 09/08/19 at 21:59; Status DC Potassium Chloride 110 meq/ Magnesium Sulfate 20 meq/ Multivitamins 10 ml/Chromium/ Copper/Manganese/ Seleni/Zn 1 ml/ Insulin Human Regular 15 unit/ Total Parenteral Nutrition/Amino Acids/Dextrose/ Fat Emulsion Intravenous 1,800 ml @ 75 mls/hr TPN CONT IV Last administered on 09/08/19at 22:01; Start 09/08/19 at 22:00; Stop 09/09/19 at 21:59; Status DC Saliva Substitute (Biotene Moisturizing Mouth) 2 spray PRN Q15MIN PRN PO DRY MOUTH; Start 09/08/19 at 11:00 Potassium Chloride 110 meq/ Magnesium Sulfate 20 meq/ Multivitamins 10 ml/Chromium/ Copper/Manganese/ Seleni/Zn 1 ml/ Insulin Human Regular 15 unit/ Total Parenteral Nutrition/Amino Acids/Dextrose/ Fat Emulsion Intravenous 1,800 ml @ 75 mls/hr TPN CONT IV Last administered on 09/09/19at 22:21; Start 09/09/19 at 22:00; Stop 09/10/19 at 21:59; Status DC Potassium Chloride 110 meq/ Magnesium Sulfate 20 meq/ Multivitamins 10 ml/Chromium/ Copper/Manganese/ Seleni/Zn 1 ml/ Insulin Human Regular 15 unit/ Total Parenteral Nutrition/Amino Acids/Dextrose/ Fat Emulsion Intravenous 1,800 ml @ 75 mls/hr TPN CONT IV Last administered on 09/10/19at 22:04; Start 09/10/19 at 22:00; Stop 09/11/19 at 21:59; Status DC Potassium Chloride 110 meq/ Magnesium Sulfate 20 meq/ Multivitamins 10 ml/Chromium/ Copper/Manganese/ Seleni/Zn 1 ml/ Insulin Human Regular 15 unit/ Total Parenteral Nutrition/Amino Acids/Dextrose/ Fat Emulsion Intravenous 1,800 ml @ 75 mls/hr TPN CONT IV Last administered on 09/11/19at 22:48; Start 09/11/19 at 22:00; Stop 09/12/19 at 21:59; Status DC Potassium Chloride 70 meq/ Magnesium Sulfate 20 meq/ Multivitamins 10 ml/Chromium/ Copper/Manganese/ Seleni/Zn 1 ml/ Insulin Human Regular 15 unit/ Total Parenteral Nutrition/Amino Acids/Dextrose/ Fat Emulsion Intravenous 1,800 ml @ 75 mls/hr TPN CONT IV Last administered on 09/12/19at 21:39; Start 09/12/19 at 22:00; Stop 09/13/19 at 21:59; Status DC Meropenem 500 mg/ Sodium Chloride 50 ml @ 100 mls/hr Q6HRS IV Last administered on 09/14/19at 06:02; Start 09/12/19 at 18:00; Stop 09/14/19 at 09:59; Status DC Barium Sulfate (Varibar Thin Liquid Apple) 148 gm 1X ONCE PO ; Start 09/13/19 at 11:45; Stop 09/13/19 at 11:49; Status DC Potassium Chloride 70 meq/ Magnesium Sulfate 20 meq/ Multivitamins 10 ml/Chromium/ Copper/Manganese/ Seleni/Zn 1 ml/ Insulin Human Regular 15 unit/ Total Parenteral Nutrition/Amino Acids/Dextrose/ Fat Emulsion Intravenous 1,800 ml @ 75 mls/hr TPN CONT IV Last administered on 09/13/19at 22:27; Start 09/13/19 at 22:00; Stop 09/14/19 at 21:59; Status DC Piperacillin Sod/ Tazobactam Sod 3.375 gm/Sodium Chloride 50 ml @ 100 mls/hr Q6HRS IV Last administered on 09/22/19at 06:10; Start 09/14/19 at 12:00; Stop 09/22/19 at 07:26; Status DC Potassium Chloride 70 meq/ Magnesium Sulfate 20 meq/ Multivitamins 10 ml/Chromium/ Copper/Manganese/ Seleni/Zn 1 ml/ Insulin Human Regular 15 unit/ Total Parenteral Nutrition/Amino Acids/Dextrose/ Fat Emulsion Intravenous 1,800 ml @ 75 mls/hr TPN CONT IV Last administered on 09/14/19at 22:03; Start 09/14/19 at 22:00; Stop 09/15/19 at 21:59; Status DC Potassium Chloride 70 meq/ Magnesium Sulfate 20 meq/ Multivitamins 10 ml/Chromium/ Copper/Manganese/ Seleni/Zn 1 ml/ Insulin Human Regular 15 unit/ Total Parenteral Nutrition/Amino Acids/Dextrose/ Fat Emulsion Intravenous 1,800 ml @ 75 mls/hr TPN CONT IV Last administered on 09/15/19at 22:33; Start 09/15/19 at 22:00; Stop 09/16/19 at 21:59; Status DC Potassium Chloride 70 meq/ Magnesium Sulfate 20 meq/ Multivitamins 10 ml/Chromium/ Copper/Manganese/ Seleni/Zn 1 ml/ Insulin Human Regular 15 unit/ Total Parenteral Nutrition/Amino Acids/Dextrose/ Fat Emulsion Intravenous 1,800 ml @ 75 mls/hr TPN CONT IV Last administered on 09/16/19at 23:13; Start 09/16/19 at 22:00; Stop 09/17/19 at 21:59; Status DC Potassium Chloride 80 meq/ Magnesium Sulfate 20 meq/ Multivitamins 10 ml/Chromium/ Copper/Manganese/ Seleni/Zn 1 ml/ Insulin Human Regular 15 unit/ Total Parenteral Nutrition/Amino Acids/Dextrose/ Fat Emulsion Intravenous 1,800 ml @ 75 mls/hr TPN CONT IV Last administered on 09/17/19at 22:30; Start 09/17/19 at 22:00; Stop 09/18/19 at 21:59; Status DC Potassium Chloride 80 meq/ Magnesium Sulfate 20 meq/ Multivitamins 10 ml/Chromium/ Copper/Manganese/ Seleni/Zn 1 ml/ Insulin Human Regular 15 unit/ To anthony Parenteral Nutrition/Amino Acids/Dextrose/ Fat Emulsion Intravenous 1,800 ml @ 75 mls/hr TPN CONT IV Last administered on 09/18/19at 21:54; Start 09/18/19 at 22:00; Stop 09/19/19 at 21:59; Status DC Potassium Chloride/Water 100 ml @ 100 mls/hr 1X ONCE IV Last administered on 09/19/19at 10:15; Start 09/19/19 at 10:00; Stop 09/19/19 at 10:59; Status DC Potassium Chloride 90 meq/ Magnesium Sulfate 20 meq/ Multivitamins 10 ml/Chromium/ Copper/Manganese/ Seleni/Zn 1 ml/ Insulin Human Regular 20 unit/ Total Parenteral Nutrition/Amino Acids/Dextrose/ Fat Emulsion Intravenous 1,800 ml @ 75 mls/hr TPN CONT IV Last administered on 09/19/19at 22:28; Start 09/19/19 at 22:00; Stop 09/20/19 at 21:59; Status DC Potassium Chloride 90 meq/ Magnesium Sulfate 20 meq/ Multivitamins 10 ml/Chromium/ Copper/Manganese/ Seleni/Zn 1 ml/ Insulin Human Regular 20 unit/ Total Parenteral Nutrition/Amino Acids/Dextrose/ Fat Emulsion Intravenous 1,800 ml @ 75 mls/hr TPN CONT IV Last administered on 09/20/19at 22:08; Start 09/20/19 at 22:00; Stop 09/21/19 at 21:59; Status DC Lorazepam (Ativan Inj) 0.25 mg PRN Q4HRS PRN IVP ANXIETY / AGITATION Last administered on 10/15/19at 13:37; Start 09/21/19 at 07:30 Potassium Chloride 90 meq/ Magnesium Sulfate 20 meq/ Multivitamins 10 ml/Chromium/ Copper/Manganese/ Seleni/Zn 1 ml/ Insulin Human Regular 20 unit/ Total Parenteral Nutrition/Amino Acids/Dextrose/ Fat Emulsion Intravenous 1,800 ml @ 75 mls/hr TPN CONT IV Last administered on 09/21/19at 23:13; Start 09/21/19 at 22:00; Stop 09/22/19 at 21:59; Status DC Furosemide (Lasix) 40 mg DAILY IVP Last administered on 09/23/19at 11:14; Start 09/21/19 at 13:30; Stop 09/25/19 at 09:12; Status DC Fluoxetine HCl (PROzac) 20 mg QHS PEG Last administered on 10/26/19at 21:05; Start 09/22/19 at 21:00 Fentanyl (Duragesic 50mcg/ Hr Patch) 1 patch Q72H TD Last administered on 09/22/19at 21:22; Start 09/22/19 at 21:00; Stop 10/01/19 at 12:00; Status DC Potassium Chloride 40 meq/ Potassium Acetate 60 meq/Magnesium Sulfate 10 meq/ Multivitamins 10 ml/Chromium/ Copper/Manganese/ Seleni/Zn 1 ml/ Insulin Human Regular 20 unit/ Total Parenteral Nutrition/Amino Acids/Dextrose/ Fat Emulsion Intravenous 1,800 ml @ 75 mls/hr TPN CONT IV Last administered on 09/23/19at 00:03; Start 09/22/19 at 22:00; Stop 09/23/19 at 21:59; Status DC Potassium Acetate 80 meq/Magnesium Sulfate 5 meq/ Multivitamins 10 ml/Chromium/ Copper/Manganese/ Seleni/Zn 1 ml/ Insulin Human Regular 20 unit/ Total Parenteral Nutrition/Amino Acids/Dextrose/ Fat Emulsion Intravenous 1,920 ml @ 80 mls/hr TPN CONT IV Last administered on 09/23/19at 21:59; Start 09/23/19 at 22:00; Stop 09/24/19 at 21:59; Status DC Potassium Acetate 60 meq/Magnesium Sulfate 5 meq/ Multivitamins 10 ml/Chromium/ Copper/Manganese/ Seleni/Zn 1 ml/ Insulin Human Regular 30 unit/ Total Parenter al Nutrition/Amino Acids/Dextrose/ Fat Emulsion Intravenous 1,920 ml @ 80 mls/hr TPN CONT IV Last administered on 09/24/19at 21:54; Start 09/24/19 at 22:00; Stop 09/25/19 at 21:59; Status DC Norepinephrine Bitartrate 8 mg/ Dextrose 258 ml @ 13.332 mls/ hr CONT PRN IV PER PROTOCOL Last administered on 10/20/19at 09:09; Start 09/25/19 at 06:30 Albumin Human 500 ml @ 125 mls/hr 1X ONCE IV Last administered on 09/25/19at 08:10; Start 09/25/19 at 08:15; Stop 09/25/19 at 12:14; Status DC Potassium Acetate 40 meq/Magnesium Sulfate 5 meq/ Multivitamins 10 ml/Chromium/ Copper/Manganese/ Seleni/Zn 1 ml/ Insulin Human Regular 30 unit/ Total Par enteral Nutrition/Amino Acids/Dextrose/ Fat Emulsion Intravenous 1,920 ml @ 80 mls/hr TPN CONT IV Last administered on 09/25/19at 22:23; Start 09/25/19 at 22:00; Stop 09/26/19 at 21:59; Status DC Meropenem 1 gm/ Sodium Chloride 100 ml @ 200 mls/hr Q8HRS IV ; Start 09/25/19 at 14:00; Status Cancel Meropenem 1 gm/ Sodium Chloride 100 ml @ 200 mls/hr Q8HRS IV Last administered on 09/25/19at 11:04; Start 09/25/19 at 10:00; Stop 09/25/19 at 13:00; Status DC Meropenem 1 gm/ Sodium Chloride 100 ml @ 200 mls/hr Q12HR IV Last administered on 10/13/19at 08:27; Start 09/25/19 at 21:00; Stop 10/13/19 at 08:56; Status DC Sodium Chloride 1,000 ml @ 1,000 mls/hr 1X ONCE IV Last administered on 09/25/19at 11:06; Start 09/25/19 at 10:45; Stop 09/25/19 at 11:44; Status DC Micafungin Sodium 100 mg/Dextrose 100 ml @ 100 mls/hr Q24H IV Last administered on 10/12/19at 12:34; Start 09/25/19 at 11:00; Stop 10/13/19 at 08:56; Status DC Daptomycin 410 mg/ Sodium Chloride 50 ml @ 100 mls/hr Q24H IV Last administered on 09/27/19at 13:33; Start 09/25/19 at 14:00; Stop 09/28/19 at 08:30; Status DC Midazolam HCl (Versed) 2 mg STK-MED ONCE .ROUTE ; Start 09/25/19 at 14:47; Stop 09/25/19 at 14:48; Status DC Fentanyl Citrate (Fentanyl 2ml Vial) 100 mcg STK-MED ONCE .ROUTE ; Start 09/25/19 at 14:47; Stop 09/25/19 at 14:48; Status DC Flumazenil (Romazicon) 0.5 mg STK-MED ONCE IV ; Start 09/25/19 at 14:48; Stop 09/25/19 at 14:48; Status DC Naloxone HCl (Narcan) 0.4 mg STK-MED ONCE .ROUTE ; Start 09/25/19 at 14:48; Stop 09/25/19 at 14:48; Status DC Lidocaine HCl (Lidocaine 1% 20ml Vial) 20 ml STK-MED ONCE .ROUTE ; Start 09/25/19 at 14:48; Stop 09/25/19 at 14:48; Status DC Midazolam HCl (Versed) 2 mg 1X ONCE IV Last administered on 09/25/19at 15:28; Start 09/25/19 at 15:00; Stop 09/25/19 at 15:01; Status DC Fentanyl Citrate (Fentanyl 2ml Vial) 100 mcg 1X ONCE IV Last administered on 09/25/19at 15:28; Start 09/25/19 at 15:00; Stop 09/25/19 at 15:01; Status DC Lidocaine HCl (Lidocaine 1% 20ml Vial) 20 ml 1X ONCE INJ Last administered on 09/25/19at 15:30; Start 09/25/19 at 15:00; Stop 09/25/19 at 15:01; Status DC Sodium Chloride 1,000 ml @ 100 mls/hr Q10H IV Last administered on 10/04/19at 07:30; Start 09/25/19 at 20:00; Stop 10/04/19 at 11:26; Status DC Sodium Bicarbonate (Sodium Bicarb Adult 8.4% Syr) 50 meq 1X ONCE IV Last administered on 09/25/19at 21:47; Start 09/25/19 at 22:00; Stop 09/25/19 at 22:01; Status DC Potassium Acetate 40 meq/Magnesium Sulfate 5 meq/ Multivitamins 10 ml/Chromium/ Copper/Manganese/ Seleni/Zn 1 ml/ Insulin Human Regular 30 unit/ Total Parenteral Nutrition/Amino Acids/Dextrose/ Fat Emulsion Intravenous 1,920 ml @ 80 mls/hr TPN CONT IV Last administered on 09/26/19at 22:28; Start 09/26/19 at 22:00; Stop 09/27/19 at 21:59; Status DC Sodium Chloride 500 ml @ 500 mls/hr 1X ONCE IV Last administered on 09/27/19at 06:39; Start 09/27/19 at 06:45; Stop 09/27/19 at 07:44; Status DC Potassium Acetate 40 meq/Magnesium Sulfate 5 meq/ Multivitamins 10 ml/Chromium/ Copper/Manganese/ Seleni/Zn 1 ml/ Insulin Human Regular 30 unit/ Total Parenteral Nutrition/Amino Acids/Dextrose/ Fat Emulsion Intravenous 1,920 ml @ 80 mls/hr TPN CONT IV Last administered on 09/27/19at 22:03; Start 09/27/19 at 22:00; Stop 09/28/19 at 21:59; Status DC Metoprolol Tartrate (Lopressor Vial) 5 mg PRN Q6HRS PRN IVP HYPERTENSION Last administered on 10/06/19at 10:14; Start 09/28/19 at 09:00 Potassium Acetate 40 meq/Magnesium Sulfate 5 meq/ Multivitamins 10 ml/Chromium/ Copper/Manganese/ Seleni/Zn 1 ml/ Insulin Human Regular 30 unit/ Total Parenteral Nutrition/Amino Acids/Dextrose/ Fat Emulsion Intravenous 1,920 ml @ 80 mls/hr TPN CONT IV Last administered on 09/28/19at 21:26; Start 09/28/19 at 22:00; Stop 09/29/19 at 21:59; Status DC Potassium Acetate 40 meq/Magnesium Sulfate 5 meq/ Multivitamins 10 ml/Chromium/ Copper/Manganese/ Seleni/Zn 1 ml/ Insulin Human Regular 30 unit/ Total Parenteral Nutrition/Amino Acids/Dextrose/ Fat Emulsion Intravenous 1,920 ml @ 80 mls/hr TPN CONT IV Last administered on 09/29/19at 23:23; Start 09/29/19 at 22:00; Stop 09/30/19 at 21:59; Status DC Potassium Acetate 40 meq/Magnesium Sulfate 5 meq/ Multivitamins 10 ml/Chromium/ Copper/Manganese/ Seleni/Zn 1 ml/ Insulin Human Regular 30 unit/ Total Parenteral Nutrition/Amino Acids/Dextrose/ Fat Emulsion Intravenous 1,920 ml @ 80 mls/hr TPN CONT IV Last administered on 09/30/19at 21:35; Start 09/30/19 at 22:00; Stop 10/01/19 at 21:59; Status DC Furosemide (Lasix) 20 mg 1X ONCE IVP Last administered on 10/01/19at 06:26; Start 10/01/19 at 06:15; Stop 10/01/19 at 06:16; Status DC Methylprednisolone Sodium Succinate (SOLU-Medrol 125MG VIAL) 125 mg 1X ONCE IV Last administered on 10/01/19at 06:26; Start 10/01/19 at 06:15; Stop 10/01/19 at 06:16; Status DC Albuterol/ Ipratropium (Duoneb) 3 ml Q4HRS NEB Last administered on 10/27/19at 04:23; Start 10/01/19 at 08:00 Fentanyl Citrate 30 ml @ 0 mls/hr CONT PRN IV SEE PROTOCOL Last administered on 10/22/19at 08:03; Start 10/01/19 at 06:00; Stop 10/22/19 at 12:42; Status DC Propofol 100 ml @ 0 mls/hr CONT PRN IV SEE PROTOCOL Last administered on 10/08/19at 23:50; Start 10/01/19 at 06:00 Fentanyl Citrate (Fentanyl 2ml Vial) 25 mcg PRN Q1HR PRN IV SEE COMMENTS; Start 10/01/19 at 06:00 Fentanyl Citrate (Fentanyl 2ml Vial) 50 mcg PRN Q1HR PRN IV SEE COMMENTS; Start 10/01/19 at 06:00 Chlorhexidine Gluconate (Peridex) 15 ml BID MM ; Start 10/01/19 at 09:00; Stop 10/01/19 at 07:58; Status DC Potassium Acetate 40 meq/Magnesium Sulfate 5 meq/ Multivitamins 10 ml/Chromium/ Copper/Manganese/ Seleni/Zn 1 ml/ Insulin Human Regular 30 unit/ Total Parenteral Nutrition/Amino Acids/Dextrose/ Fat Emulsion Intravenous 1,920 ml @ 80 mls/hr TPN CONT IV Last administered on 10/01/19at 21:19; Start 10/01/19 at 22:00; Stop 10/02/19 at 21:59; Status DC Acetylcysteine (Mucomyst 20% Resp Treatment) 600 mg BID NEB Last administered on 10/07/19at 09:33; Start 10/01/19 at 21:00; Stop 10/07/19 at 10:39; Status DC Magnesium Sulfate 100 ml @ 25 mls/hr 1X ONCE IV Last administered on 10/01/19at 15:48; Start 10/01/19 at 15:45; Stop 10/01/19 at 19:44; Status DC Potassium Acetate 40 meq/Magnesium Sulfate 5 meq/ Multivitamins 10 ml/Chromium/ Copper/Manganese/ Seleni/Zn 1 ml/ Insulin Human Regular 30 unit/ Total Par enteral Nutrition/Amino Acids/Dextrose/ Fat Emulsion Intravenous 1,920 ml @ 80 mls/hr TPN CONT IV Last administered on 10/02/19at 21:35; Start 10/02/19 at 22:00; Stop 10/03/19 at 21:59; Status DC Potassium Chloride/Water 100 ml @ 100 mls/hr Q1H IV Last administered on 10/03/19at 08:31; Start 10/03/19 at 07:00; Stop 10/03/19 at 08:59; Status DC Potassium Acetate 40 meq/Magnesium Sulfate 5 meq/ Multivitamins 10 ml/Chromium/ Copper/Manganese/ Seleni/Zn 1 ml/ Insulin Human Regular 30 unit/ Total Parenteral Nutrition/Amino Acids/Dextrose/ Fat Emulsion Intravenous 1,920 ml @ 80 mls/hr TPN CONT IV Last administered on 10/03/19at 21:54; Start 10/03/19 at 22:00; Stop 10/04/19 at 19:34; Status DC Lidocaine HCl (Buffered Lidocaine 1%) 3 ml STK-MED ONCE .ROUTE ; Start 10/03/19 at 12:14; Stop 10/03/19 at 12:14; Status DC Lidocaine HCl (Buffered Lidocaine 1%) 3 ml 1X ONCE IJ Last administered on 10/03/19at 13:11; Start 10/03/19 at 13:00; Stop 10/03/19 at 13:01; Status DC Magnesium Sulfate 50 ml @ 25 mls/hr 1X ONCE IV ; Start 10/04/19 at 08:15; Stop 10/04/19 at 10:14; Status DC Potassium Acetate 40 meq/Magnesium Sulfate 10 meq/ Multivitamins 10 ml/Chromium/ Copper/Manganese/ Seleni/Zn 1 ml/ Insulin Human Regular 20 unit/ Total Parenteral Nutrition/Amino Acids/Dextrose/ Fat Emulsion Intravenous 1,920 ml @ 80 mls/hr TPN CONT IV Last administered on 10/04/19at 21:32; Start 10/04/19 at 22:00; Stop 10/05/19 at 21:59; Status DC Potassium Chloride/Water 100 ml @ 100 mls/hr Q1H IV Last administered on 10/05/19at 09:12; Start 10/05/19 at 08:00; Stop 10/05/19 at 09:59; Status DC Alteplase, Recombinant (Cathflo For Central Catheter Clearance) 4 mg 1X ONCE INT CAT ; Start 10/05/19 at 09:15; Stop 10/05/19 at 09:16; Status UNV Alteplase, Recombinant (Cathflo For Central Catheter Clearance) 4 mg 1X ONCE INT CAT ; Start 10/05/19 at 09:15; Stop 10/05/19 at 09:16; Status UNV Alteplase, Recombinant (Cathflo For Central Catheter Clearance) 4 mg 1X ONCE INT CAT ; Start 10/05/19 at 09:15; Stop 10/05/19 at 09:16; Status UNV Alteplase, Recombinant 4 mg/ Sodium Chloride 20 ml @ 20 mls/hr 1X ONCE IV Last administered on 10/05/19at 10:10; Start 10/05/19 at 10:00; Stop 10/05/19 at 10:59; Status DC Alteplase, Recombinant 4 mg/ Sodium Chloride 20 ml @ 20 mls/hr 1X ONCE IV Last administered on 10/05/19at 10:09; Start 10/05/19 at 10:00; Stop 10/05/19 at 10:59; Status DC Alteplase, Recombinant 4 mg/ Sodium Chloride 20 ml @ 20 mls/hr 1X ONCE IV Last administered on 10/05/19at 10:09; Start 10/05/19 at 10:00; Stop 10/05/19 at 10:59; Status DC Potassium Acetate 60 meq/Magnesium Sulfate 10 meq/ Multivitamins 10 ml/Chromium/ Copper/Manganese/ Seleni/Zn 1 ml/ Insulin Human Regular 20 unit/ Total Parenteral Nutrition/Amino Acids/Dextrose/ Fat Emulsion Intravenous 1,920 ml @ 80 mls/hr TPN CONT IV Last administered on 10/05/19at 21:55; Start 10/05/19 at 22:00; Stop 10/06/19 at 21:59; Status DC Albumin Human 500 ml @ 125 mls/hr 1X ONCE IV Last administered on 10/06/19at 12:01; Start 10/06/19 at 11:15; Stop 10/06/19 at 15:14; Status DC Sodium Chloride 500 ml @ 500 mls/hr 1X ONCE IV Last administered on 10/06/19at 13:50; Start 10/06/19 at 11:15; Stop 10/06/19 at 12:14; Status DC Potassium Acetate 60 meq/Magnesium Sulfate 14 meq/ Multivitamins 10 ml/Chromium/ Copper/Manganese/ Seleni/Zn 1 ml/ Insulin Human Regular 20 unit/ Total Parenteral Nutrition/Amino Acids/Dextrose/ Fat Emulsion Intravenous 1,920 ml @ 80 mls/hr TPN CONT IV Last administered on 10/06/19at 22:26; Start 10/06/19 at 22:00; Stop 10/07/19 at 21:59; Status DC Ciprofloxacin/ Dextrose 200 ml @ 200 mls/hr Q12HR IV Last administered on 10/13/19at 08:27; Start 10/06/19 at 21:00; Stop 10/13/19 at 08:56; Status DC Albumin Human 250 ml @ 62.5 mls/hr 1X ONCE IV Last administered on 10/07/19at 11:09; Start 10/07/19 at 11:00; Stop 10/07/19 at 14:59; Status DC Furosemide (Lasix) 20 mg 1X ONCE IVP Last administered on 10/07/19at 14:52; Start 10/07/19 at 10:45; Stop 10/07/19 at 10:49; Status DC Potassium Acetate 60 meq/Magnesium Sulfate 14 meq/ Multivitamins 10 ml/Chromium/ Copper/Manganese/ Seleni/Zn 1 ml/ Insulin Human Regular 15 unit/ Total Parenteral Nutrition/Amino Acids/Dextrose/ Fat Emulsion Intravenous 1,920 ml @ 80 mls/hr TPN CONT IV Last administered on 10/07/19at 22:08; Start 10/07/19 at 22:00; Stop 10/08/19 at 21:59; Status DC Potassium Acetate 60 meq/Magnesium Sulfate 14 meq/ Multivitamins 10 ml/Chromium/ Copper/Manganese/ Seleni/Zn 1 ml/ Insulin Human Regular 15 unit/ Total Parenteral Nutrition/Amino Acids/Dextrose/ Fat Emulsion Intravenous 1,920 ml @ 80 mls/hr TPN CONT IV Last administered on 10/08/19at 22:12; Start 10/08/19 at 22:00; Stop 10/09/19 at 21:59; Status DC Potassium Acetate 60 meq/Magnesium Sulfate 14 meq/ Multivitamins 10 ml/Chromium/ Copper/Manganese/ Seleni/Zn 1 ml/ Insulin Human Regular 15 unit/ Total Parenteral Nutrition/Amino Acids/Dextrose/ Fat Emulsion Intravenous 1,920 ml @ 80 mls/hr TPN CONT IV Last administered on 10/09/19at 22:22; Start 10/09/19 at 22:00; Stop 10/10/19 at 21:59; Status DC Furosemide (Lasix) 20 mg 1X ONCE IVP Last administered on 10/10/19at 11:07; Start 10/10/19 at 10:30; Stop 10/10/19 at 10:34; Status DC Potassium Acetate 60 meq/Magnesium Sulfate 14 meq/ Multivitamins 10 ml/Chromium/ Copper/Manganese/ Seleni/Zn 1 ml/ Insulin Human Regular 15 unit/ Sodium Chloride 20 meq/Total Parenteral Nutrition/Amino Acids/Dextrose/ Fat Emulsion Intravenous 1,920 ml @ 80 mls/hr TPN CONT IV Last administered on 10/10/19at 21:54; Start 10/10/19 at 22:00; Stop 10/11/19 at 21:59; Status DC Potassium Acetate 30 meq/Magnesium Sulfate 14 meq/ Multivitamins 10 ml/Chromium/ Copper/Manganese/ Seleni/Zn 1 ml/ Insulin Human Regular 15 unit/ Sodium Chloride 20 meq/Potassium Chloride 30 meq/ Total Parenteral Nutrition/Amino Acids/Dextrose/ Fat Emulsion Intravenous 1,920 ml @ 80 mls/hr TPN CONT IV Last administered on 10/11/19at 21:46; Start 10/11/19 at 22:00; Stop 10/12/19 at 21:59; Status DC Sodium Chloride 80 meq/Potassium Chloride 30 meq/ Potassium Acetate 30 meq/Magnesium Sulfate 14 meq/ Multivitamins 10 ml/Chromium/ Copper/Manganese/ Seleni/Zn 1 ml/ Insulin Human Regular 15 unit/ Total Parenteral Nutrition/Amino Acids/Dextrose/ Fat Emulsion Intravenous 1,920 ml @ 80 mls/hr TPN CONT IV Last administered on 10/12/19at 22:33; Start 10/12/19 at 22:00; Stop 10/13/19 at 21:59; Status DC Furosemide (Lasix) 40 mg 1X ONCE IVP Last administered on 10/12/19at 16:27; Start 10/12/19 at 15:30; Stop 10/12/19 at 15:33; Status DC Albumin Human 250 ml @ 62.5 mls/hr 1X ONCE IV Last administered on 10/12/19at 16:27; Start 10/12/19 at 15:30; Stop 10/12/19 at 19:29; Status DC Sodium Chloride 80 meq/Potassium Chloride 30 meq/ Potassium Acetate 30 meq/Magnesium Sulfate 14 meq/ Multivitamins 10 ml/Chromium/ Copper/Manganese/ Seleni/Zn 1 ml/ Insulin Human Regular 15 unit/ Total Parenteral Nutrition/Amino Acids/Dextrose/ Fat Emulsion Intravenous 1,920 ml @ 80 mls/hr TPN CONT IV Last administered on 10/13/19at 22:25; Start 10/13/19 at 22:00; Stop 10/14/19 at 21:59; Status DC Sodium Chloride 80 meq/Potassium Chloride 30 meq/ Potassium Acetate 30 meq/Magnesium Sulfate 14 meq/ Multivitamins 10 ml/Chromium/ Copper/Manganese/ Seleni/Zn 1 ml/ Insulin Human Regular 15 unit/ Total Parenteral Nutrition/Amino Acids/Dextrose/ Fat Emulsion Intravenous 1,920 ml @ 80 mls/hr TPN CONT IV Last administered on 10/14/19at 21:32; Start 10/14/19 at 22:00; Stop 10/15/19 at 21:59; Status DC Sodium Chloride 80 meq/Potassium Chloride 30 meq/ Potassium Acetate 30 meq/Magnesium Sulfate 14 meq/ Multivitamins 10 ml/Chromium/ Copper/Manganese/ Seleni/Zn 1 ml/ Insulin Human Regular 15 unit/ Total Parenteral Nutrition/Amino Acids/Dextrose/ Fat Emulsion Intravenous 1,920 ml @ 80 mls/hr TPN CONT IV Last administered on 10/15/19at 21:53; Start 10/15/19 at 22:00; Stop 10/16/19 at 21:59; Status DC Acetylcysteine (Mucomyst 20% Resp Treatment) 600 mg RTBID NEB Last administered on 10/26/19at 20:00; Start 10/15/19 at 12:00 Sodium Chloride 80 meq/Potassium Chloride 30 meq/ Potassium Acetate 30 meq/Magnesium Sulfate 14 meq/ Multivitamins 10 ml/Chromium/ Copper/Manganese/ Seleni/Zn 1 ml/ Insulin Human Regular 15 unit/ Total Parenteral Nutrition/Amino Acids/Dextrose/ Fat Emulsion Intravenous 1,920 ml @ 80 mls/hr TPN CONT IV Las t administered on 10/16/19at 22:06; Start 10/16/19 at 22:00; Stop 10/17/19 at 21:59; Status DC Meropenem 500 mg/ Sodium Chloride 50 ml @ 100 mls/hr Q6HRS IV Last administered on 10/27/19at 06:12; Start 10/16/19 at 18:00 Daptomycin 500 mg/ Sodium Chloride 50 ml @ 100 mls/hr Q24H IV Last administered on 10/24/19at 21:47; Start 10/16/19 at 19:00; Stop 10/25/19 at 08:13; Status DC Sodium Chloride 80 meq/Potassium Chloride 30 meq/ Potassium Acetate 30 meq/Magnesium Sulfate 14 meq/ Multivitamins 10 ml/Chromium/ Copper/Manganese/ Seleni/Zn 1 ml/ Insulin Human Regular 15 unit/ Total Parenteral Nutrition/Amino Acids/Dextrose/ Fat Emulsion Intravenous 1,920 ml @ 80 mls/hr TPN CONT IV Last administered on 10/17/19at 22:09; Start 10/17/19 at 22:00; Stop 10/18/19 at 21:59; Status DC Heparin Sodium (Porcine) 1000 unit/Sodium Chloride 1,001 ml @ 1,001 mls/hr 1X ONCE IRR ; Start 10/18/19 at 06:00; Stop 10/18/19 at 06:59; Status DC Propofol (Diprivan) 200 mg STK-MED ONCE IV ; Start 10/18/19 at 07:44; Stop 10/18/19 at 07:44; Status DC Lidocaine HCl (Lidocaine Pf 2% Vial) 5 ml STK-MED ONCE .ROUTE ; Start 10/18/19 at 07:44; Stop 10/18/19 at 07:44; Status DC Fentanyl Citrate (Fentanyl 2ml Vial) 100 mcg STK-MED ONCE .ROUTE ; Start 10/18/19 at 07:44; Stop 10/18/19 at 07:44; Status DC Rocuronium [place] (Zemuron) 100 mg STK-MED ONCE .ROUTE ; Start 10/18/19 at 07:44; Stop 10/18/19 at 07:44; Status DC Micafungin Sodium 100 mg/Dextrose 100 ml @ 100 mls/hr Q24H IV Last administered on 10/26/19at 08:07; Start 10/18/19 at 08:30 Bupivacaine HCl/ Epinephrine Bitart (Sensorcain-Epi 0.5%-1:[id number] Mpf) 30 ml STK-MED ONCE .ROUTE ; Start 10/18/19 at 08:34; Stop 10/18/19 at 08:35; Status DC Iohexol (Omnipaque 300 Mg/ml) 50 ml STK-MED ONCE .ROUTE Last administered on 10/18/19at 13:30; Start 10/18/19 at 08:35; Stop 10/18/19 at 08:35; Status DC Sodium Chloride 80 meq/Potassium Chloride 30 meq/ Potassium Acetate 30 m eq/Magnesium Sulfate 14 meq/ Multivitamins 10 ml/Chromium/ Copper/Manganese/ Seleni/Zn 1 ml/ Insulin Human Regular 15 unit/ Total Parenteral Nutrition/Amino Acids/Dextrose/ Fat Emulsion Intravenous 1,920 ml @ 80 mls/hr TPN CONT IV Last administered on 10/19/19at 01:22; Start 10/18/19 at 22:00; Stop 10/19/19 at 21:59; Status DC Phenylephrine HCl (Brayden-Synephrine Inj) 10 mg STK-MED ONCE .ROUTE ; Start 10/18/19 at 10:15; Stop 10/18/19 at 10:15; Status DC Desflurane (Suprane) 90 ml STK-MED ONCE IH ; Start 10/18/19 at 10:18; Stop 10/18/19 at 10:19; Status DC Albumin Human 500 ml @ As Directed STK-MED ONCE IV ; Start 10/18/19 at 11:06; Stop 10/18/19 at 11:06; Status DC Vasopressin (Vasostrict) 20 unit STK-MED ONCE .ROUTE ; Start 10/18/19 at 12:23; Stop 10/18/19 at 12:23; Status DC Phenylephrine HCl (Brayden-Synephrine Inj) 10 mg STK-MED ONCE .ROUTE ; Start 10/18/19 at 13:33; Stop 10/18/19 at 13:33; Status DC Phenylephrine HCl (Brayden-Synephrine Inj) 10 mg STK-MED ONCE .ROUTE ; Start 10/18/19 at 13:33; Stop 10/18/19 at 13:33; Status DC Ondansetron HCl (Zofran) 4 mg STK-MED ONCE .ROUTE ; Start 10/18/19 at 13:33; Stop 10/18/19 at 13:33; Status DC Enoxaparin Sodium (Lovenox 40mg Syringe) 40 mg Q24H SQ Last administered on 10/26/19at 08:08; Start 10/19/19 at 08:00 Sodium Chloride (Normal Saline Flush) 3 ml QSHIFT PRN IV AFTER MEDS AND BLOOD DRAWS; Start 10/18/19 at 14:45 Naloxone HCl (Narcan) 0.4 mg PRN Q2MIN PRN IV SEE INSTRUCTIONS; Start 10/18/19 at 14:45 Sodium Chloride 1,000 ml @ 25 mls/hr Q24H IV Last administered on 10/26/19at 21:15; Start 10/18/19 at 14:33 Morphine Sulfate (Morphine Sulfate) 1 mg PRN Q1HR PRN IV PAIN; Start 10/18/19 at 14:45 Midazolam HCl 100 mg/Sodium Chloride 100 ml @ 1 mls/hr CONT PRN IV SEE I/O RECORD Last administered on 10/21/19at 18:48; Start 10/18/19 at 14:45 Phenylephrine HCl (PHENYLEPHRINE in 0.9% NACL PF) 1 mg STK-MED ONCE IV ; Start 10/18/19 at 14:44; Stop 10/18/19 at 14:45; Status DC Ephedrine Sulfate (ePHEDrine PF IN SALINE SYRINGE) 50 mg STK-MED ONCE IV ; Start 10/18/19 at 14:45; Stop 10/18/19 at 14:45; Status DC Vasopressin 20 unit/Dextrose 101 ml @ 12 mls/hr CONT PRN IV SEE I/O RECORD Last administered on 10/25/19at 04:17; Start 10/18/19 at 15:30 Sodium Chloride 1,000 ml @ 1,000 mls/hr 1X ONCE IV Last administered on 10/18/19at 15:42; Start 10/18/19 at 15:45; Stop 10/18/19 at 16:44; Status DC Albumin Human 500 ml @ 125 mls/hr 1X ONCE IV ; Start 10/18/19 at 16:00; Stop 10/18/19 at 19:59; Status DC Albumin Human 500 ml @ 125 mls/hr PRN Q1HR PRN IV PER PROTOCOL; Start 10/18/19 at 15:45 Magnesium Sulfate 50 ml @ 25 mls/hr 1X ONCE IV Last administered on 10/18/19at 17:02; Start 10/18/19 at 16:30; Stop 10/18/19 at 18:29; Status DC Sodium Bicarbonate (Sodium Bicarb Adult 8.4% Syr) 50 meq STK-MED ONCE .ROUTE ; Start 10/18/19 at 16:20; Stop 10/18/19 at 16:20; Status DC Sodium Bicarbonate (Sodium Bicarb Adult 8.4% Syr) 100 meq 1X ONCE IV Last administered on 10/18/19at 17:07; Start 10/18/19 at 16:30; Stop 10/18/19 at 16:31; Status DC Sodium Bicarbonate 150 meq/Dextrose 1,150 ml @ 75 mls/hr 1X ONCE IV Last administered on 10/18/19at 20:02; Start 10/18/19 at 16:30; Stop 10/19/19 at 07:49; Status DC Sodium Chloride 80 meq/Potassium Chloride 30 meq/ Potassium Acetate 30 meq/Magnesium Sulfate 14 meq/ Multivitamins 10 ml/Chromium/ Copper/Manganese/ Seleni/Zn 1 ml/ Insulin Human Regular 15 unit/ Total Parenteral Nutrition/Amino Acids/Dextrose/ Fat Emulsion Intravenous 1,920 ml @ 80 mls/hr TPN CONT IV Last administered on 10/19/19at 23:05; Start 10/19/19 at 22:00; Stop 10/20/19 at 21:59; Status DC Sodium Chloride 100 meq/Potassium Chloride 30 meq/ Potassium Acetate 30 meq/Magnesium Sulfate 12 meq/ Multivitamins 10 ml/Chromium/ Copper/Manganese/ Seleni/Zn 1 ml/ Insulin Human Regular 15 unit/ Total Parenteral Nutrition/Amino Acids/Dextrose/ Fat Emulsion Intravenous 1,920 ml @ 80 mls/hr TPN CONT IV Last administered on 10/20/19at 21:52; Start 10/20/19 at 22:00; Stop 10/21/19 at 21:59; Status DC Sodium Chloride 100 meq/Potassium Chloride 30 meq/ Potassium Acetate 30 meq/Magnesium Sulfate 12 meq/ Multivitamins 10 ml/Chromium/ Copper/Manganese/ Seleni/Zn 1 ml/ Insulin Human Regular 15 unit/ Total Parenteral Nutrition/Amino Acids/Dextrose/ Fat Emulsion Intravenous 1,920 ml @ 80 mls/hr TPN CONT IV Last administered on 10/21/19at 21:46; Start 10/21/19 at 22:00; Stop 10/22/19 at 21:59; Status DC Sodium Chloride 100 meq/Potassium Chloride 30 meq/ Potassium Acetate 30 meq/Magnesium Sulfate 12 meq/ Multivitamins 10 ml/Chromium/ Copper/Manganese/ Seleni/Zn 1 ml/ Insulin Human Regular 15 unit/ Total Parenteral Nutrition/Amino Acids/Dextrose/ Fat Emulsion Intravenous 1,800 ml @ 75 mls/hr TPN CONT IV Last administered on 10/22/19at 22:04; Start 10/22/19 at 22:00; Stop 10/23/19 at 21:59; Status DC Fentanyl Citrate 55 ml @ 0 mls/hr CONT PRN IV SEE COMMENTS Last administered on 10/24/19at 23:55; Start 10/22/19 at 13:00 Sodium Chloride 100 meq/Potassium Chloride 30 meq/ Potassium Acetate 30 m eq/Magnesium Sulfate 12 meq/ Multivitamins 10 ml/Chromium/ Copper/Manganese/ Seleni/Zn 1 ml/ Insulin Human Regular 15 unit/ Total Parenteral Nutrition/Amino Acids/Dextrose/ Fat Emulsion Intravenous 1,680 ml @ 70 mls/hr TPN CONT IV Last administered on 10/23/19at 21:23; Start 10/23/19 at 22:00; Stop 10/24/19 at 21:59; Status DC Sodium Chloride 110 meq/Potassium Chloride 30 meq/ Potassium Acetate 30 meq/Magnesium Sulfate 15 meq/ Multivitamins 10 ml/Chromium/ Copper/Manganese/ Seleni/Zn 1 ml/ Insulin Human Regular 15 unit/ Total Parenteral Nutrition/Amino Acids/Dextrose/ Fat Emulsion Intravenous 1,680 ml @ 70 mls/hr TPN CONT IV Last administered on 10/24/19at 21:48; Start 10/24/19 at 22:00; Stop 10/25/19 at 21:59; Status DC Sodium Chloride 110 meq/Potassium Chloride 30 meq/ Potassium Acetate 30 meq/Magnesium Sulfate 15 meq/ Multivitamins 10 ml/Chromium/ Copper/Manganese/ Seleni/Zn 1 ml/ Insulin Human Regular 15 unit/ Total Parenteral Nutrition/Amino Acids/Dextrose/ Fat Emulsion Intravenous 1,680 ml @ 70 mls/hr TPN CONT IV Last administered on 10/25/19at 21:33; Start 10/25/19 at 22:00; Stop 10/26/19 at 21:59; Status DC Sodium Chloride 110 meq/Potassium Chloride 30 meq/ Potassium Acetate 30 meq/Magnesium Sulfate 15 meq/ Multivitamins 10 ml/Chromium/ Copper/Manganese/ Seleni/Zn 1 ml/ Insulin Human Regular 15 unit/ Total Parenteral Nutrition/Amino Acids/Dextrose/ Fat Emulsion Intravenous 1,680 ml @ 70 mls/hr TPN CONT IV Last administered on 10/26/19at 21:51; Start 10/26/19 at 22:00; Stop 10/27/19 at 21:59 Active Scripts Active Reported Bisoprolol Fumarate 5 Mg Tablet 10 Mg PO DAILY Vitals/I & O Vital Sign - Last 24 Hours 10/26/19 10/26/19 10/26/19 10/26/19 08:00 08:00 08:27 09:00 Temp 99.4 99.4 Pulse 116 115 Resp 18 24 B/P (MAP) 149/94 (112) 135/67 (89) Pulse Ox 100 100 100 O2 Delivery Mechanical Ventilator Ventilator Ventilator Ventilator 10/26/19 10/26/19 10/26/19 10/26/19 10:00 11:00 12:00 12:00 Temp 99.3 99.3 Pulse 110 118 121 Resp 45 27 26 B/P (MAP) 126/69 (88) 137/81 (99) 139/82 (101) Pulse Ox 100 100 100 O2 Delivery Ventilator Ventilator Trach Collar Tracheal Collar O2 Flow Rate 10.0 10.0 10/26/19 10/26/19 10/26/19 10/26/19 12:07 13:00 14:00 15:00 Pulse 118 116 114 Resp 28 29 26 B/P (MAP) 132/83 (99) 144/78 (100) 120/60 (80) Pulse Ox 99 100 100 100 O2 Delivery Tracheal Collar Tracheal Collar Tracheal Collar Tracheal Collar O2 Flow Rate 10.0 10.0 10.0 10.0 7/8/20 7/8/20 7/8/20 7/20 16:00 16:00 16:17 17:00 Temp 98.9 98.9 Pulse 114 115 Resp 27 27 B/P (MAP) 141/82 (101) 138/79 (98) Pulse Ox 100 99 98 O2 Delivery Tracheal Collar Trach Collar Tracheal Collar Tracheal Collar O2 Flow Rate 10.0 10.0 10.0 10.0 10/25/ 7// 7/ 7/12/07 18:00 19:00 20:00 20:00 Temp 99.0 99.0 Pulse 112 116 115 Resp 25 25 28 B/P (MAP) 139/75 (96) 140/81 (100) 150/76 (100) Pulse Ox 100 99 100 O2 Delivery Tracheal Collar Tracheal Collar Trach Collar Tracheal Collar O2 Flow Rate 10.0 10.0 10.0 10.0 10/25/ 7/ 7/ 7 20:20 20:32 21:00 22:00 Pulse 116 119 Resp 24 29 B/P (MAP) 146/82 (103) 158/81 (106) Pulse Ox 100 100 99 99 O2 Delivery Tracheal Collar Tracheal Collar Tracheal Collar Tracheal Collar O2 Flow Rate 10.0 10.0 10.0 10.0 10/25/10/25/10/26/10/27/19 23:00 23:50 00:00 00:01 Temp 98.4 98.4 Pulse 118 108 Resp 31 24 B/P (MAP) 135/78 (97) 131/79 (96) Pulse Ox 99 100 99 O2 Delivery Tracheal Collar Tracheal Collar Trach Collar Tracheal Collar O2 Flow Rate 10.0 10.0 10.0 10.0 10/26/ 7// 7//10/27/19 01:00 01:30 02:00 03:00 Pulse 107 105 102 Resp 19 20 21 B/P (MAP) 125/72 (89) 109/69 (82) 128/72 (90) Pulse Ox 99 100 99 100 O2 Delivery Tracheal Collar Ventilator Tracheal Collar Ventilator O2 Flow Rate 10.0 10.0 10/27/19 10/27/19 10/27/19 10/27/19 04:00 04:00 04:24 05:00 Temp 98.5 98.5 Pulse 101 102 Resp 20 22 B/P (MAP) 137/93 (108) 145/76 (99) Pulse Ox 100 100 100 O2 Delivery Mechanical Ventilator Ventilator Ventilator Ventilator 10/27/19 06:00 Pulse 102 Resp 31 B/P (MAP) 136/81 (99) Pulse Ox 100 O2 Delivery Ventilator Intake and Output 10/26/19 10/26/19 10/27/19 15:00 23:00 07:00 Intake Total 250 ml 2254.2 ml 1741.1 ml Output Total 520 ml 1895 ml 1215 ml Balance -270 ml 359.2 ml 526.1 ml Justicifation of Admission Dx: Justifications for Admission: Justification of Admission Dx: Yes DAVIN LANDEROS MD Oct 27, 2019 07:52
[2019-10-27] MEDS: ACETYLCYSTEINE 20% for RESP TX 600 MG/3 ML. NEB SCH ×2 (08:25→19:21)
--- NOTE | 2019-10-27 08:39 | PDOC ---
PULMONARY PROGRESS NOTES Subjective Patient on trach shield doing well no respiratory distress Vitals Vital Signs Date Time Temp Pulse Resp B/P (MAP) Pulse Ox O2 Delivery O2 Flow Rate FiO2 10/27/19 08:20 100 Ventilator 10/27/19 06:00 102 31 136/81 (99) 10/27/19 04:00 98.5 98.5 10/27/19 02:00 10.0 Lungs: Crackles Cardiovascular: S1, S2 Abdomen: Soft, Non-tender, Other (multiple KAYLIN drains ) Extremities: Other (+1 BLE edema) Skin: Warm Labs Laboratory Tests Test 10/25/19 12:21 10/25/19 17:50 10/26/19 00:45 10/26/19 06:20 Glucose (Fingerstick) 164 mg/dL (70-99) 135 mg/dL (70-99) 186 mg/dL (70-99) White Blood Count 15.4 x10^3/uL (4.0-11.0) Red Blood Count 2.95 x10^6/uL (3.50-5.40) Hemoglobin 8.7 g/dL (12.0-15.5) Hematocrit 26.3 % (36.0-47.0) Mean Corpuscular Volume 89 fL (79-100) Mean Corpuscular Hemoglobin 30 pg (25-35) Mean Corpuscular Hemoglobin Concent 33 g/dL (31-37) Red Cell Distribution Width 15.1 % (11.5-14.5) Platelet Count 597 x10^3/uL (140-400) Neutrophils (%) (Auto) 83 % (31-73) Lymphocytes (%) (Auto) 9 % (24-48) Monocytes (%) (Auto) 7 % (0-9) Eosinophils (%) (Auto) 1 % (0-3) Basophils (%) (Auto) 0 % (0-3) Neutrophils # (Auto) 12.8 x10^3/uL (1.8-7.7) Lymphocytes # (Auto) 1.4 x10^3/uL (1.0-4.8) Monocytes # (Auto) 1.0 x10^3/uL (0.0-1.1) Eosinophils # (Auto) 0.2 x10^3/uL (0.0-0.7) Basophils # (Auto) 0.0 x10^3/uL (0.0-0.2) Sodium Level 143 mmol/L (136-145) Potassium Level 4.2 mmol/L (3.5-5.1) Chloride Level 109 mmol/L (98-107) Carbon Dioxide Level 31 mmol/L (21-32) Anion Gap 3 (6-14) Blood Urea Nitrogen 15 mg/dL (7-20) Creatinine 0.5 mg/dL (0.6-1.0) Estimated GFR (Cockcroft-Gault) 131.1 BUN/Creatinine Ratio 30 (6-20) Glucose Level 139 mg/dL (70-99) Calcium Level 10.2 mg/dL (8.5-10.1) Total Bilirubin 0.2 mg/dL (0.2-1.0) Aspartate Amino Transf (AST/SGOT) 25 U/L (15-37) Alanine Aminotransferase (ALT/SGPT) 37 U/L (14-59) Alkaline Phosphatase 239 U/L (46-116) Total Protein 5.1 g/dL (6.4-8.2) Albumin 1.1 g/dL (3.4-5.0) Albumin/Globulin Ratio 0.3 (1.0-1.7) Test 10/26/19 06:24 10/26/19 11:52 10/26/19 17:42 10/27/19 00:05 Glucose (Fingerstick) 134 mg/dL (70-99) 163 mg/dL (70-99) 150 mg/dL (70-99) 144 mg/dL (70-99) Test 10/27/19 05:35 10/27/19 05:50 White Blood Count 13.4 x10^3/uL (4.0-11.0) Red Blood Count 2.64 x10^6/uL (3.50-5.40) Hemoglobin 7.9 g/dL (12.0-15.5) Hematocrit 23.5 % (36.0-47.0) Mean Corpuscular Volume 89 fL (79-100) Mean Corpuscular Hemoglobin 30 pg (25-35) Mean Corpuscular Hemoglobin Concent 34 g/dL (31-37) Red Cell Distribution Width 15.1 % (11.5-14.5) Platelet Count 559 x10^3/uL (140-400) Neutrophils (%) (Auto) 83 % (31-73) Lymphocytes (%) (Auto) 8 % (24-48) Monocytes (%) (Auto) 7 % (0-9) Eosinophils (%) (Auto) 2 % (0-3) Basophils (%) (Auto) 0 % (0-3) Neutrophils # (Auto) 11.1 x10^3/uL (1.8-7.7) Lymphocytes # (Auto) 1.1 x10^3/uL (1.0-4.8) Monocytes # (Auto) 1.0 x10^3/uL (0.0-1.1) Eosinophils # (Auto) 0.2 x10^3/uL (0.0-0.7) Basophils # (Auto) 0.0 x10^3/uL (0.0-0.2) Sodium Level 145 mmol/L (136-145) Potassium Level 4.2 mmol/L (3.5-5.1) Chloride Level 110 mmol/L (98-107) Carbon Dioxide Level 32 mmol/L (21-32) Anion Gap 3 (6-14) Blood Urea Nitrogen 14 mg/dL (7-20) Creatinine 0.5 mg/dL (0.6-1.0) Estimated GFR (Cockcroft-Gault) 131.1 Glucose Level 150 mg/dL (70-99) Calcium Level 9.8 mg/dL (8.5-10.1) Phosphorus Level 3.6 mg/dL (2.6-4.7) Magnesium Level 2.0 mg/dL (1.8-2.4) Glucose (Fingerstick) 144 mg/dL (70-99) Laboratory Tests Test 10/26/19 11:52 10/26/19 17:42 10/27/19 00:05 10/27/19 05:35 Glucose (Fingerstick) 163 mg/dL (70-99) 150 mg/dL (70-99) 144 mg/dL (70-99) White Blood Count 13.4 x10^3/uL (4.0-11.0) Red Blood Count 2.64 x10^6/uL (3.50-5.40) Hemoglobin 7.9 g/dL (12.0-15.5) Hematocrit 23.5 % (36.0-47.0) Mean Corpuscular Volume 89 fL (79-100) Mean Corpuscular Hemoglobin 30 pg (25-35) Mean Corpuscular Hemoglobin Concent 34 g/dL (31-37) Red Cell Distribution Width 15.1 % (11.5-14.5) Platelet Count 559 x10^3/uL (140-400) Neutrophils (%) (Auto) 83 % (31-73) Lymphocytes (%) (Auto) 8 % (24-48) Monocytes (%) (Auto) 7 % (0-9) Eosinophils (%) (Auto) 2 % (0-3) Basophils (%) (Auto) 0 % (0-3) Neutrophils # (Auto) 11.1 x10^3/uL (1.8-7.7) Lymphocytes # (Auto) 1.1 x10^3/uL (1.0-4.8) Monocytes # (Auto) 1.0 x10^3/uL (0.0-1.1) Eosinophils # (Auto) 0.2 x10^3/uL (0.0-0.7) Basophils # (Auto) 0.0 x10^3/uL (0.0-0.2) Sodium Level 145 mmol/L (136-145) Potassium Level 4.2 mmol/L (3.5-5.1) Chloride Level 110 mmol/L (98-107) Carbon Dioxide Level 32 mmol/L (21-32) Anion Gap 3 (6-14) Blood Urea Nitrogen 14 mg/dL (7-20) Creatinine 0.5 mg/dL (0.6-1.0) Estimated GFR (Cockcroft-Gault) 131.1 Glucose Level 150 mg/dL (70-99) Calcium Level 9.8 mg/dL (8.5-10.1) Phosphorus Level 3.6 mg/dL (2.6-4.7) Magnesium Level 2.0 mg/dL (1.8-2.4) Test 10/27/19 05:50 Glucose (Fingerstick) 144 mg/dL (70-99) Medications Active Scripts Medications Dose Route/Sig Max Daily Dose Days Date Category Bisoprolol Fumarate 5 Mg Tablet 10 Mg PO DAILY 07/04/19 Reported Comments CXR 10/16/19 IMPRESSION: No significant interval change compared to 10/13/2019. ct abdomen /pelvis 09/23 1. Removal of the percutaneous pigtail drainage catheters since the prior exam. Sequela of pancreatitis with extensive pseudocysts again demonstrated, the right-sided collections are slightly larger since the prior exam, the left-sided collections are stable. See above. 2. Moderate to large left pleural effusion with atelectasis and collapse of most of the left lower lobe, stable. Small right pleural effusion is stable. 3. Gallstone. ct chest 10/02 reviewed GRAM NEG COCCOBACILLI:MANY SQUAMOUS EPI CELL:RARE PMN (WBCs):FEW Unless otherwise specified, Testing Performed by: [facility] [address] [place] [address] For Inquires, the Physician may contact the Microbiology department at [phone] RESPIRATORY CULTURE Final Final MANY GRAM NEGATIVE RODS on 10/03/19 at 1107 FINAL ID= [PSEUDOMONAS AERUGINOSA] MICRO CHARGES PSEUDOMONAS AERUGINOSA ANTIMICROBIAL SUSCEPTIBILITY Final Comment NEG ALEXANDRA 56 PSEUDOMONAS AERUGINOSA ANTIBIOTIC RESULT INTERPRETATION AMIKACIN <=16 S AZTREONAM <=4 S CEFTAZIDIME <=1 S CIPROFLOXACIN <=0.25 S CEFEPIME <=2 S CEFTAZIDIME/AVIBACTAM <=4 S GENTAMICIN <=2 S LEVOFLOXACIN <=0.5 S Impression . IMPRESSION: 1. Acute hypoxemic respiratory failure secondary to ARDS status post trach, developed anemia 09/24, blood drainage from RLQ abdomen drain site, and surrounding firmness / developed septic shock 09/24 from abdomen source, required levo /7 s/p 3 new drains 09/24 with brown color drainage, 2. Gallstone pancreatitis, now with ongoing bleeding from prior drain. Anemic. s/p Tx multiple units over several days 3. septic shock/sepsis, recurrent 09/24, source abdomen. , 4. Acute kidney injury-, Off HD--renal function decling. suspect JUANA on CKD due to hypotension , improved now 5. Acute gallstone pancreatitis. 6. Hypoalbuminemia. 7. Moderate persistent effusions, s/p left thora 08/29, reaccumulation of left effusion. O2 requirement not changed. 8. Fever- ,hypotension. suspect recurrent sepsis/ likely pancreatic source. Per ID, per surgery-- 9. Chronic anemia-- ongoing / s/p PRBC 10. Covid 19 testing negative 11. Moderate to large ascites-S/P paracentisis 12.S/P paracentisis with 4 liters removed on 08/03/19 13. S/P IR drain placement on 08/26/2019, removal, re inserted 09/24 14. Depression/Anxiety 15. Increase effusion, ? loculated/ s/p chest tube.. drainage slowing down. 10/17 S/P Exploratory laparotomy, lysis of adhesions, subtotal cholecystectomy with cholangiogram, gastrojejunostomy tube placement, pancreatic necrosectomy leukocytosis- improving Plan . We will continue off mechanical ventilation Follow surgery input DVT GI prophylaxis ABX per ID Continue TF and TPN for nutrition support DVT/GI PPX D/W RN and RT CC time 30 minutes HARMEET BEE MD Oct 27, 2019 08:39
[2019-10-27] MEDS: ENOXAPARIN 40 MG/0.4 ML SYRINGE. SQ SCH (09:11)
[2019-10-27] MEDS: ONDANSETRON PF 4 MG/2 ML VIAL. IV PRN ×2 (09:14→22:37)
[2019-10-27] MEDS: MICAFUNGIN 100 MG in IV DEXTROSE 5% 100ML 100 ML IV SCH (09:15)
[2019-10-27] MEDS: PANTOPRAZOLE IV PUSH 40 MG VIAL. IVP SCH (09:15)
--- NOTE | 2019-10-27 09:44 | PDOC ---
Objective: Objective: +BM Vital Signs: Vital Signs Date Time Temp Pulse Resp B/P (MAP) Pulse Ox O2 Delivery O2 Flow Rate FiO2 10/27/19 08:30 100 Tracheal Collar 10.0 10/27/19 06:00 102 31 136/81 (99) 10/27/19 04:00 98.5 98.5 Labs: Laboratory Tests Test 10/26/19 11:52 10/26/19 17:42 10/27/19 00:05 10/27/19 05:35 Glucose (Fingerstick) 163 mg/dL 150 mg/dL 144 mg/dL White Blood Count 13.4 x10^3/uL Red Blood Count 2.64 x10^6/uL Hemoglobin 7.9 g/dL Hematocrit 23.5 % Mean Corpuscular Volume 89 fL Mean Corpuscular Hemoglobin 30 pg Mean Corpuscular Hemoglobin Concent 34 g/dL Red Cell Distribution Width 15.1 % Platelet Count 559 x10^3/uL Neutrophils (%) (Auto) 83 % Lymphocytes (%) (Auto) 8 % Monocytes (%) (Auto) 7 % Eosinophils (%) (Auto) 2 % Basophils (%) (Auto) 0 % Neutrophils # (Auto) 11.1 x10^3/uL Lymphocytes # (Auto) 1.1 x10^3/uL Monocytes # (Auto) 1.0 x10^3/uL Eosinophils # (Auto) 0.2 x10^3/uL Basophils # (Auto) 0.0 x10^3/uL Sodium Level 145 mmol/L Potassium Level 4.2 mmol/L Chloride Level 110 mmol/L Carbon Dioxide Level 32 mmol/L Anion Gap 3 Blood Urea Nitrogen 14 mg/dL Creatinine 0.5 mg/dL Estimated GFR (Cockcroft-Gault) 131.1 Glucose Level 150 mg/dL Calcium Level 9.8 mg/dL Phosphorus Level 3.6 mg/dL Magnesium Level 2.0 mg/dL Test 10/27/19 05:50 Glucose (Fingerstick) 144 mg/dL FUNGAL CULTURE,OTHER Final Final report ANIBAL CULT RES 1 Final Kiana parapsilosis PE: GEN: resting - therapy present to slide to chair LUNGS: trach collar HEART: mildly tachy ABD: G-J tube, drains, wound vac A/P: S/p pancreatic necrosectomy -- Supportive care. Justicifation of Admission Dx: Justifications for Admission: Justification of Admission Dx: Yes CYNDEE FALCON Oct 27, 2019 09:44
--- NOTE | 2019-10-27 10:55 | PDOC ---
SURGICAL PROGRESS NOTE Subjective up in chair Vital Signs Vital Signs Date Time Temp Pulse Resp B/P (MAP) Pulse Ox O2 Delivery O2 Flow Rate FiO2 10/27/19 08:30 100 Tracheal Collar 10.0 10/27/19 06:00 102 31 136/81 (99) 10/27/19 04:00 98.5 98.5 I&O Intake and Output 10/27/19 07:00 Intake Total 4245.3 ml Output Total 3630 ml Balance 615.3 ml IV Total 2346.3 ml Tube Feeding 1549 ml Other 350 ml Output Urine Total 1520 ml Gastric Drainage Total 15 ml Chest Tube Drainage Total 40 ml Drainage Total 2055 ml PATIENT HAS A ROSARIO: Yes General: Cooperative, No acute distress Abdomen: Soft, Other (multiple drains ) Labs Laboratory Tests Test 10/25/19 12:21 10/25/19 17:50 10/26/19 00:45 10/26/19 06:20 Glucose (Fingerstick) 164 mg/dL (70-99) 135 mg/dL (70-99) 186 mg/dL (70-99) White Blood Count 15.4 x10^3/uL (4.0-11.0) Red Blood Count 2.95 x10^6/uL (3.50-5.40) Hemoglobin 8.7 g/dL (12.0-15.5) Hematocrit 26.3 % (36.0-47.0) Mean Corpuscular Volume 89 fL (79-100) Mean Corpuscular Hemoglobin 30 pg (25-35) Mean Corpuscular Hemoglobin Concent 33 g/dL (31-37) Red Cell Distribution Width 15.1 % (11.5-14.5) Platelet Count 597 x10^3/uL (140-400) Neutrophils (%) (Auto) 83 % (31-73) Lymphocytes (%) (Auto) 9 % (24-48) Monocytes (%) (Auto) 7 % (0-9) Eosinophils (%) (Auto) 1 % (0-3) Basophils (%) (Auto) 0 % (0-3) Neutrophils # (Auto) 12.8 x10^3/uL (1.8-7.7) Lymphocytes # (Auto) 1.4 x10^3/uL (1.0-4.8) Monocytes # (Auto) 1.0 x10^3/uL (0.0-1.1) Eosinophils # (Auto) 0.2 x10^3/uL (0.0-0.7) Basophils # (Auto) 0.0 x10^3/uL (0.0-0.2) Sodium Level 143 mmol/L (136-145) Potassium Level 4.2 mmol/L (3.5-5.1) Chloride Level 109 mmol/L (98-107) Carbon Dioxide Level 31 mmol/L (21-32) Anion Gap 3 (6-14) Blood Urea Nitrogen 15 mg/dL (7-20) Creatinine 0.5 mg/dL (0.6-1.0) Estimated GFR (Cockcroft-Gault) 131.1 BUN/Creatinine Ratio 30 (6-20) Glucose Level 139 mg/dL (70-99) Calcium Level 10.2 mg/dL (8.5-10.1) Total Bilirubin 0.2 mg/dL (0.2-1.0) Aspartate Amino Transf (AST/SGOT) 25 U/L (15-37) Alanine Aminotransferase (ALT/SGPT) 37 U/L (14-59) Alkaline Phosphatase 239 U/L (46-116) Total Protein 5.1 g/dL (6.4-8.2) Albumin 1.1 g/dL (3.4-5.0) Albumin/Globulin Ratio 0.3 (1.0-1.7) Test 10/26/19 06:24 10/26/19 11:52 10/26/19 17:42 10/27/19 00:05 Glucose (Fingerstick) 134 mg/dL (70-99) 163 mg/dL (70-99) 150 mg/dL (70-99) 144 mg/dL (70-99) Test 10/27/19 05:35 10/27/19 05:50 White Blood Count 13.4 x10^3/uL (4.0-11.0) Red Blood Count 2.64 x10^6/uL (3.50-5.40) Hemoglobin 7.9 g/dL (12.0-15.5) Hematocrit 23.5 % (36.0-47.0) Mean Corpuscular Volume 89 fL (79-100) Mean Corpuscular Hemoglobin 30 pg (25-35) Mean Corpuscular Hemoglobin Concent 34 g/dL (31-37) Red Cell Distribution Width 15.1 % (11.5-14.5) Platelet Count 559 x10^3/uL (140-400) Neutrophils (%) (Auto) 83 % (31-73) Lymphocytes (%) (Auto) 8 % (24-48) Monocytes (%) (Auto) 7 % (0-9) Eosinophils (%) (Auto) 2 % (0-3) Basophils (%) (Auto) 0 % (0-3) Neutrophils # (Auto) 11.1 x10^3/uL (1.8-7.7) Lymphocytes # (Auto) 1.1 x10^3/uL (1.0-4.8) Monocytes # (Auto) 1.0 x10^3/uL (0.0-1.1) Eosinophils # (Auto) 0.2 x10^3/uL (0.0-0.7) Basophils # (Auto) 0.0 x10^3/uL (0.0-0.2) Sodium Level 145 mmol/L (136-145) Potassium Level 4.2 mmol/L (3.5-5.1) Chloride Level 110 mmol/L (98-107) Carbon Dioxide Level 32 mmol/L (21-32) Anion Gap 3 (6-14) Blood Urea Nitrogen 14 mg/dL (7-20) Creatinine 0.5 mg/dL (0.6-1.0) Estimated GFR (Cockcroft-Gault) 131.1 Glucose Level 150 mg/dL (70-99) Calcium Level 9.8 mg/dL (8.5-10.1) Phosphorus Level 3.6 mg/dL (2.6-4.7) Magnesium Level 2.0 mg/dL (1.8-2.4) Glucose (Fingerstick) 144 mg/dL (70-99) Laboratory Tests Test 10/26/19 11:52 10/26/19 17:42 10/27/19 00:05 10/27/19 05:35 Glucose (Fingerstick) 163 mg/dL (70-99) 150 mg/dL (70-99) 144 mg/dL (70-99) White Blood Count 13.4 x10^3/uL (4.0-11.0) Red Blood Count 2.64 x10^6/uL (3.50-5.40) Hemoglobin 7.9 g/dL (12.0-15.5) Hematocrit 23.5 % (36.0-47.0) Mean Corpuscular Volume 89 fL (79-100) Mean Corpuscular Hemoglobin 30 pg (25-35) Mean Corpuscular Hemoglobin Concent 34 g/dL (31-37) Red Cell Distribution Width 15.1 % (11.5-14.5) Platelet Count 559 x10^3/uL (140-400) Neutrophils (%) (Auto) 83 % (31-73) Lymphocytes (%) (Auto) 8 % (24-48) Monocytes (%) (Auto) 7 % (0-9) Eosinophils (%) (Auto) 2 % (0-3) Basophils (%) (Auto) 0 % (0-3) Neutrophils # (Auto) 11.1 x10^3/uL (1.8-7.7) Lymphocytes # (Auto) 1.1 x10^3/uL (1.0-4.8) Monocytes # (Auto) 1.0 x10^3/uL (0.0-1.1) Eosinophils # (Auto) 0.2 x10^3/uL (0.0-0.7) Basophils # (Auto) 0.0 x10^3/uL (0.0-0.2) Sodium Level 145 mmol/L (136-145) Potassium Level 4.2 mmol/L (3.5-5.1) Chloride Level 110 mmol/L (98-107) Carbon Dioxide Level 32 mmol/L (21-32) Anion Gap 3 (6-14) Blood Urea Nitrogen 14 mg/dL (7-20) Creatinine 0.5 mg/dL (0.6-1.0) Estimated GFR (Cockcroft-Gault) 131.1 Glucose Level 150 mg/dL (70-99) Calcium Level 9.8 mg/dL (8.5-10.1) Phosphorus Level 3.6 mg/dL (2.6-4.7) Magnesium Level 2.0 mg/dL (1.8-2.4) Test 10/27/19 05:50 Glucose (Fingerstick) 144 mg/dL (70-99) Problem List Problems Medical Problems: (1) Acute pancreatitis Status: Acute (2) Cholelithiasis Status: Acute Assessment/Plan supportive measures Justicifation of Admission Dx: Justifications for Admission: Justification of Admission Dx: Yes 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 [employer] Oct 27, 2019 10:55
--- NOTE | 2019-10-27 11:56 | NUR ---
SS following up with discharge planning. SS reviewed pt chart and discussed with pt RN. Pt on trach collar. Pt on TPN, Micafungin, and Meropenem. All drains and tubes remain at this time. Pt has J tube and Chest tube. Pt has three KAYLIN drains and two Mook drains. Pt is self pay pt. Per RN, they are trying to taper TPN. SS will continue to follow for discharge planning.
[2019-10-27] MEDS: TPN PER PHARMACY MC PRN ×2 (12:36→13:13)
--- NOTE | 2019-10-27 13:14 | NUR ---
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, 8 inches Weight: 94.293439 kg Current diet: NPO LABS: Sodium: 145 Potassium: 4.2 Chloride: 110 Calcium: 9.8 Corrected Calcium: 12.12 Magnesium: 2 CO2: 32 SCr: 0.5 Glucose: 144-150 Albumin: 1.1 AST: 25 ALT: 37 TPN FORMULA: TPN TYPE: Central Continuous AMINO ACIDS: 40 gm DEXTROSE: 225 gm LIPIDS: 20 gm SODIUM CHLORIDE: 90 mEq SODIUM ACETATE: - mEq SODIUM PHOSPHATE: - mmol POTASSIUM CHLORIDE: 30 mEq POTASSIUM ACETATE: 30 mEq POTASSIUM PHOSPHATE: - mmol MAGNESIUM: 15 mEq CALCIUM: - mEq INSULIN: 15 units MULTIPLE VITAMIN: 10 ml TRACE ELEMENTS: 1 ml ml(s) TPN PLAN: -Macros adjusted per dietary recommendations to 40 grams AA, 225 grams Dextrose and 20 grams lipids. -Sodium, chloride and bicarbonate trending up. Tube feeds held and then restarted overnight due to abdominal distension. At this time plan to decrease sodium chloride to 90 mEq/bag. -Per dietary rec, stop TPN when TF up to 45 ml/hr. Currently at 20 ml/hr. Plan to continue TPN at this time. -BMP in AM. R: Continue TPN with adjustments to macros and slight decrease in sodium chloride. Will monitor electrolytes, glucose, and tolerance to TPN. MARVIN RODNEY, [facility], 10/27/19 [id number]
[2019-10-27] MEDS: IV NORMAL SALINE 1000ML BAG 1,000 ML IV SCH (14:33)
[2019-10-27] MEDS ORDERED: AMINO ACID IV SCH ×10 (22:00)
[2019-10-27] MEDS ORDERED: TOTAL PARENTERAL NUTRITION IV SCH ×10 (22:00)
[2019-10-27] MEDS ORDERED: [UNRECOGNIZED DRUG - OTHER] IV SCH ×10 (22:00)
[2019-10-27] MEDS ORDERED: DEXTROSE 70% IV SCH ×10 (22:00)
[2019-10-27] MEDS: CYCLOBENZAPRINE 10 MG TABLET. PO PRN (22:36)
[2019-10-28] VITALS (21 sets, daily range): BP systolic 142–181; BP diastolic 51–109
[2019-10-28] MEDS: IPRATRPIUM/ALBUTEROL 0.5/2.5MG 3 ML NEBU. NEB SCH ×5 (04:00→20:06)
[2019-10-28] MEDS: MEROPENEM 500 MG in IV NORMAL SALINE 50ML 50 ML IV SCH ×4 (04:57→18:02)
[2019-10-28] MEDS: INSULIN LISPRO 300 UNITS/3 ML VIAL. SQ SCH ×4 (06:00→18:00)
[2019-10-28 06:28] LABS: BASO # 0.1 x10^3/uL (0.0-0.2); BASO % 0 % (0-3); EOS # 0.2 x10^3/uL (0.0-0.7); EOS % 1 % (0-3); HEMATOCRIT 25.4 % (36.0-47.0); HEMOGLOBIN 8.4 g/dL (12.0-15.5); LYMPH # 1.2 x10^3/uL (1.0-4.8); LYMPH % 8 % (24-48); MEAN CORPUSCULAR HEMOGLOBIN 29 pg (25-35); MEAN CORPUSCULAR HGB CONC 33 g/dL (31-37); MEAN CORPUSCULAR VOLUME 89 fL (79-100); MONO % 7 % (0-9); NEUT # 12.9 x10^3/uL (1.8-7.7); NEUT % 84 % (31-73); PLATELET COUNT 681 x10^3/uL (140-400); RED BLOOD COUNT 2.86 x10^6/uL (3.50-5.40); WHITE BLOOD COUNT 15.4 x10^3/uL (4.0-11.0)
[2019-10-28 06:31] LABS: CALCIUM 9.9 mg/dL (8.5-10.1); CREATININE 0.5 mg/dL (0.6-1.0); GFR 131.1; POTASSIUM 4.1 mmol/L (3.5-5.1)
--- NOTE | 2019-10-28 07:16 | NUR ---
Liquid stool. Sample sent to lab for possible c-diff. Patient more awake and states she wants to see her "friends", and stated Jamaal. Easily reoriented. Reports feeling "restless" and requested pain medicine. Advised of continuous fentanyl drip. Requesting her phone, unable to locate. Chargers noted and placed in plastic bag. Nothing found in belongings bag.
[2019-10-28] MEDS: ACETYLCYSTEINE 20% for RESP TX 600 MG/3 ML. NEB SCH ×2 (07:29→20:07)
--- NOTE | 2019-10-28 07:34 | PDOC ---
Infectious Disease Note Subjective Subjective More alert Occ nausea and pain Remains on ventilator support, FiO2 40% 5 PEEP TPN off vasopressin, off levophed Vital Sign Vital Signs Vital Signs Date Time Temp Pulse Resp B/P (MAP) Pulse Ox O2 Delivery O2 Flow Rate FiO2 10/28/19 06:00 109 36 181/101 (127) 100 Venturi Mask 10/28/19 04:32 10.0 10/28/19 04:00 99.3 99.3 Physical Exam PHYSICAL EXAM GENERAL: Alert, NAD tired appearing but some better HEENT: Pupils equal, oral cavity dry. + NGT NECK: Tracheostomy LUNGS: Diminished aeration bases, CT on left HEART: S1, S2, regular w/ PVCs ABDOMEN: Sightly less distended, bowel sounds hypoactive, soft, goyal x 2, 3 KAYLIN drains, G-J tube and + wound vac : Lind in place EXTREMITIES: Generalized edema, no cyanosis. SCDs & Podus boots bilaterally SKIN: warm touch. No signs of rash. LUE-PICC without signs of complications LUE art-line out, mottling left forearm about ole art-line site is improving. RP palpable, cap refill brisk. NEURO: alert and some responsive - tracking Labs Lab Laboratory Tests Test 10/27/19 12:48 10/27/19 23:04 10/28/19 05:50 10/28/19 06:07 Glucose (Fingerstick) 131 mg/dL (70-99) 138 mg/dL (70-99) 103 mg/dL (70-99) White Blood Count 15.4 x10^3/uL (4.0-11.0) Red Blood Count 2.86 x10^6/uL (3.50-5.40) Hemoglobin 8.4 g/dL (12.0-15.5) Hematocrit 25.4 % (36.0-47.0) Mean Corpuscular Volume 89 fL (79-100) Mean Corpuscular Hemoglobin 29 pg (25-35) Mean Corpuscular Hemoglobin Concent 33 g/dL (31-37) Red Cell Distribution Width 15.0 % (11.5-14.5) Platelet Count 681 x10^3/uL (140-400) Neutrophils (%) (Auto) 84 % (31-73) Lymphocytes (%) (Auto) 8 % (24-48) Monocytes (%) (Auto) 7 % (0-9) Eosinophils (%) (Auto) 1 % (0-3) Basophils (%) (Auto) 0 % (0-3) Neutrophils # (Auto) 12.9 x10^3/uL (1.8-7.7) Lymphocytes # (Auto) 1.2 x10^3/uL (1.0-4.8) Monocytes # (Auto) 1.0 x10^3/uL (0.0-1.1) Eosinophils # (Auto) 0.2 x10^3/uL (0.0-0.7) Basophils # (Auto) 0.1 x10^3/uL (0.0-0.2) Sodium Level 143 mmol/L (136-145) Potassium Level 4.1 mmol/L (3.5-5.1) Chloride Level 107 mmol/L (98-107) Carbon Dioxide Level 32 mmol/L (21-32) Anion Gap 4 (6-14) Blood Urea Nitrogen 15 mg/dL (7-20) Creatinine 0.5 mg/dL (0.6-1.0) Estimated GFR (Cockcroft-Gault) 131.1 Glucose Level 151 mg/dL (70-99) Calcium Level 9.9 mg/dL (8.5-10.1) Micro 6/7 GRAM STAIN Final Final GRAM NEGATIVE RODS:MODERATE SQUAMOUS EPI CELL:NOT APPLICABLE PMN (WBCs):RARE YEAST:MODERATE Unless otherwise specified, Testing Performed by: [address] [address] For Inquires, the Physician may contact the Microbiology department at [phone] ANAEROBIC-AEROBIC CULTURE Preliminary Preliminary MANY GRAM NEGATIVE RODS on 09/27/19 at 5147 FINAL ID= [PSEUDOMONAS AERUGINOSA] PSEUDOMONAS AERUGINOSA ANTIMICROBIAL SUSCEPTIBILITY Preliminary Comment NEG ALEXANDRA 56 PSEUDOMONAS AERUGINOSA ANTIBIOTIC RESULT INTERPRETATION AMIKACIN <=16 S AZTREONAM >16 R CEFTAZIDIME >16 R CIPROFLOXACIN <=0.25 S CEFEPIME 16 I CEFTAZIDIME/AVIBACTAM <=4 S GENTAMICIN <=2 S CONTINUED ON NEXT PAGE RUN DATE: 09/29/19 [facility] *LIVE* PAGE 2 RUN TIME: 1016 Specimen Inquiry SPEC: [id number] PATIENT: SCOTT CUELLAR Eliz [id number] (Continued) Procedure Result ANTIMICROBIAL SUSCEPTIBILITY Preliminary (continued) LEVOFLOXACIN <=0.5 S MEROPENEM <=1 S PIPERACILLIN/TAZOBACTAM 64 S TOBRAMYCIN <=2 S Unless otherwise specified, Testing Performed by: [facility] [address] [place] [address] For Inquires, the Physician may contact the Microbiology department at [phone] CT Scan 09/23 IMPRESSION: 1. Removal of the percutaneous pigtail drainage catheters since the prior exam. Sequela of pancreatitis with extensive pseudocysts again demonstrated, the right-sided collections are slightly larger since the prior exam, the left-sided collections are stable. See above. 2. Moderate to large left pleural effusion with atelectasis and collapse of most of the left lower lobe, stable. Small right pleural effusion is stable. 3. Gallstone. Objective Assessment Patient with prolonged hospitalization more than 3 months Multiple medical problems Multiple surgical procedures Loose stool - occ stooling expected as part of normal bowel function but c-diff sent S/P Exp. Lap, SAURABH, subtotal cholecystectomy with cholangiogram, G-J tube placement & pancreatic necrosectomy on October 17 YEAST parapsilosis/PSA Leukocytosis - mild increase today but all parameters are up Fever intermittently source likely GI Severe protein malnutrition Acute gallstone pancreatitis with persistent necrosis -CT a/p 07/27. Increased ascites. 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 status post KAYLIN drain placement; C. parapsilosis. s/p drain 08/23 + yeast & high amylase; s/p additional drain on 08/25. Drains removed. -08/23. fluid devyn parapsilosis fluid, amylase high - 09/23 showed multiple pseudocysts, slight larger on the right. s/p drains x 3, 09/24. + PSAE (MDRO-R Cefepime, Zosyn ALEXANDRA < 64) and yeast, -09/24 s/p drain replacement x 3; fluid cult PSAE (MDRO), yeast; treated Ascites s/p paracentesis 08/02 & 08/23. C. parapsilosis Cholelithiasis with thickening of the gallbladder wall. JUANA, Hyperkalemia, Metabolic acidosis off dialysis Acute hypoxic resp failure. trach/vent. sputum 09/30 + PSAE (I merrem) Pleural effusions s/p left thoracentesis, 08/29. no culture. s/p left chest tube, 10/02 no growth Hypocalcemia Prediabetes HTN Anemia s/p RBCs Plan Plan of Care F/u C-diff PSA from 10/17 I to Meropenem but WBC improving so will try to hold changing abx to Cipro and or Avycaz to try and save potential abx options Monitor Abd distension ? mild improvement today ? with BM continue merrem and micafungin but d/c'd Dapto 10/24 Monitor labs in am wound care /drain management as directed Contact isolation for CRE/MDRO Critically ill D/w nursing WILLY BARAKAT MD Oct 28, 2019 07:34
[2019-10-28] MEDS: ENOXAPARIN 40 MG/0.4 ML SYRINGE. SQ SCH (08:30)
[2019-10-28] MEDS: CYCLOBENZAPRINE 10 MG TABLET. PO PRN ×2 (08:31→19:12)
[2019-10-28] MEDS: PANTOPRAZOLE IV PUSH 40 MG VIAL. IVP SCH (08:31)
[2019-10-28] MEDS: METOPROLOL TARTRATE 5 MG/5 ML VIAL. IVP PRN (08:32)
--- NOTE | 2019-10-28 08:36 | PDOC ---
PULMONARY PROGRESS NOTES Subjective Patient sitting up in the chair trach shield in place she is awake alert following commands no respiratory complaint Vitals Vital Signs Date Time Temp Pulse Resp B/P (MAP) Pulse Ox O2 Delivery O2 Flow Rate FiO2 10/28/19 08:32 108 172/101 10/28/19 07:29 98 Tracheal Collar 10.0 10/28/19 06:00 36 10/28/19 04:00 99.3 99.3 Lungs: Crackles Cardiovascular: S1, S2 Abdomen: Soft, Non-tender, Other (multiple KAYLIN drains ) Extremities: Other (+1 BLE edema) Skin: Warm Labs Laboratory Tests Test 10/26/19 11:52 10/26/19 17:42 10/27/19 00:05 10/27/19 05:35 Glucose (Fingerstick) 163 mg/dL (70-99) 150 mg/dL (70-99) 144 mg/dL (70-99) White Blood Count 13.4 x10^3/uL (4.0-11.0) Red Blood Count 2.64 x10^6/uL (3.50-5.40) Hemoglobin 7.9 g/dL (12.0-15.5) Hematocrit 23.5 % (36.0-47.0) Mean Corpuscular Volume 89 fL (79-100) Mean Corpuscular Hemoglobin 30 pg (25-35) Mean Corpuscular Hemoglobin Concent 34 g/dL (31-37) Red Cell Distribution Width 15.1 % (11.5-14.5) Platelet Count 559 x10^3/uL (140-400) Neutrophils (%) (Auto) 83 % (31-73) Lymphocytes (%) (Auto) 8 % (24-48) Monocytes (%) (Auto) 7 % (0-9) Eosinophils (%) (Auto) 2 % (0-3) Basophils (%) (Auto) 0 % (0-3) Neutrophils # (Auto) 11.1 x10^3/uL (1.8-7.7) Lymphocytes # (Auto) 1.1 x10^3/uL (1.0-4.8) Monocytes # (Auto) 1.0 x10^3/uL (0.0-1.1) Eosinophils # (Auto) 0.2 x10^3/uL (0.0-0.7) Basophils # (Auto) 0.0 x10^3/uL (0.0-0.2) Sodium Level 145 mmol/L (136-145) Potassium Level 4.2 mmol/L (3.5-5.1) Chloride Level 110 mmol/L (98-107) Carbon Dioxide Level 32 mmol/L (21-32) Anion Gap 3 (6-14) Blood Urea Nitrogen 14 mg/dL (7-20) Creatinine 0.5 mg/dL (0.6-1.0) Estimated GFR (Cockcroft-Gault) 131.1 Glucose Level 150 mg/dL (70-99) Calcium Level 9.8 mg/dL (8.5-10.1) Phosphorus Level 3.6 mg/dL (2.6-4.7) Magnesium Level 2.0 mg/dL (1.8-2.4) Test 10/27/19 05:50 10/27/19 12:48 10/27/19 23:04 10/28/19 05:50 Glucose (Fingerstick) 144 mg/dL (70-99) 131 mg/dL (70-99) 138 mg/dL (70-99) White Blood Count 15.4 x10^3/uL (4.0-11.0) Red Blood Count 2.86 x10^6/uL (3.50-5.40) Hemoglobin 8.4 g/dL (12.0-15.5) Hematocrit 25.4 % (36.0-47.0) Mean Corpuscular Volume 89 fL (79-100) Mean Corpuscular Hemoglobin 29 pg (25-35) Mean Corpuscular Hemoglobin Concent 33 g/dL (31-37) Red Cell Distribution Width 15.0 % (11.5-14.5) Platelet Count 681 x10^3/uL (140-400) Neutrophils (%) (Auto) 84 % (31-73) Lymphocytes (%) (Auto) 8 % (24-48) Monocytes (%) (Auto) 7 % (0-9) Eosinophils (%) (Auto) 1 % (0-3) Basophils (%) (Auto) 0 % (0-3) Neutrophils # (Auto) 12.9 x10^3/uL (1.8-7.7) Lymphocytes # (Auto) 1.2 x10^3/uL (1.0-4.8) Monocytes # (Auto) 1.0 x10^3/uL (0.0-1.1) Eosinophils # (Auto) 0.2 x10^3/uL (0.0-0.7) Basophils # (Auto) 0.1 x10^3/uL (0.0-0.2) Sodium Level 143 mmol/L (136-145) Potassium Level 4.1 mmol/L (3.5-5.1) Chloride Level 107 mmol/L (98-107) Carbon Dioxide Level 32 mmol/L (21-32) Anion Gap 4 (6-14) Blood Urea Nitrogen 15 mg/dL (7-20) Creatinine 0.5 mg/dL (0.6-1.0) Estimated GFR (Cockcroft-Gault) 131.1 Glucose Level 151 mg/dL (70-99) Calcium Level 9.9 mg/dL (8.5-10.1) Test 10/28/19 06:07 Glucose (Fingerstick) 103 mg/dL (70-99) Laboratory Tests Test 10/27/19 12:48 10/27/19 23:04 10/28/19 05:50 10/28/19 06:07 Glucose (Fingerstick) 131 mg/dL (70-99) 138 mg/dL (70-99) 103 mg/dL (70-99) White Blood Count 15.4 x10^3/uL (4.0-11.0) Red Blood Count 2.86 x10^6/uL (3.50-5.40) Hemoglobin 8.4 g/dL (12.0-15.5) Hematocrit 25.4 % (36.0-47.0) Mean Corpuscular Volume 89 fL (79-100) Mean Corpuscular Hemoglobin 29 pg (25-35) Mean Corpuscular Hemoglobin Concent 33 g/dL (31-37) Red Cell Distribution Width 15.0 % (11.5-14.5) Platelet Count 681 x10^3/uL (140-400) Neutrophils (%) (Auto) 84 % (31-73) Lymphocytes (%) (Auto) 8 % (24-48) Monocytes (%) (Auto) 7 % (0-9) Eosinophils (%) (Auto) 1 % (0-3) Basophils (%) (Auto) 0 % (0-3) Neutrophils # (Auto) 12.9 x10^3/uL (1.8-7.7) Lymphocytes # (Auto) 1.2 x10^3/uL (1.0-4.8) Monocytes # (Auto) 1.0 x10^3/uL (0.0-1.1) Eosinophils # (Auto) 0.2 x10^3/uL (0.0-0.7) Basophils # (Auto) 0.1 x10^3/uL (0.0-0.2) Sodium Level 143 mmol/L (136-145) Potassium Level 4.1 mmol/L (3.5-5.1) Chloride Level 107 mmol/L (98-107) Carbon Dioxide Level 32 mmol/L (21-32) Anion Gap 4 (6-14) Blood Urea Nitrogen 15 mg/dL (7-20) Creatinine 0.5 mg/dL (0.6-1.0) Estimated GFR (Cockcroft-Gault) 131.1 Glucose Level 151 mg/dL (70-99) Calcium Level 9.9 mg/dL (8.5-10.1) Medications Active Scripts Medications Dose Route/Sig Max Daily Dose Days Date Category Bisoprolol Fumarate 5 Mg Tablet 10 Mg PO DAILY 07/04/19 Reported Comments CXR 10/16/19 IMPRESSION: No significant interval change compared to 10/13/2019. ct abdomen /pelvis 09/23 1. Removal of the percutaneous pigtail drainage catheters since the prior exam. Sequela of pancreatitis with extensive pseudocysts again demonstrated, the right-sided collections are slightly larger since the prior exam, the left-sided collections are stable. See above. 2. Moderate to large left pleural effusion with atelectasis and collapse of most of the left lower lobe, stable. Small right pleural effusion is stable. 3. Gallstone. ct chest 10/02 reviewed GRAM NEG COCCOBACILLI:MANY SQUAMOUS EPI CELL:RARE PMN (WBCs):FEW Unless otherwise specified, Testing Performed by: [address] [address] For Inquires, the Physician may contact the Microbiology department at [phone] RESPIRATORY CULTURE Final Final MANY GRAM NEGATIVE RODS on 10/03/19 at 1107 FINAL ID= [PSEUDOMONAS [email or web address]] MICRO CHARGES PSEUDOMONAS AERUGINOSA ANTIMICROBIAL SUSCEPTIBILITY Final Comment NEG ALEXANDRA 56 PSEUDOMONAS AERUGINOSA ANTIBIOTIC RESULT INTERPRETATION AMIKACIN <=16 S AZTREONAM <=4 S CEFTAZIDIME <=1 S CIPROFLOXACIN <=0.25 S CEFEPIME <=2 S CEFTAZIDIME/AVIBACTAM <=4 S GENTAMICIN <=2 S LEVOFLOXACIN <=0.5 S Impression . IMPRESSION: 1. Acute hypoxemic respiratory failure secondary to ARDS status post trach, developed anemia 09/24, blood drainage from RLQ abdomen drain site, and surrounding firmness / developed septic shock 09/24 from abdomen source, required levo /7 s/p 3 new drains / with brown color drainage, 2. Gallstone pancreatitis, now with ongoing bleeding from prior drain. Anemic. s/p Tx multiple units over several days 3. septic shock/sepsis, recurrent 09/24, source abdomen. , 4. Acute kidney injury-, Off HD--renal function decling. suspect JUANA on CKD due to hypotension , improved now 5. Acute gallstone pancreatitis. 6. Hypoalbuminemia. 7. Moderate persistent effusions, s/p left thora 08/29, reaccumulation of left effusion. O2 requirement not changed. 8. Fever- ,hypotension. suspect recurrent sepsis/ likely pancreatic source. Per ID, per surgery-- 9. Chronic anemia-- ongoing / s/p PRBC 10. Covid 19 testing negative 11. Moderate to large ascites-S/P paracentisis 12.S/P paracentisis with 4 liters removed on 08/03/19 13. S/P IR drain placement on 08/26/2019, removal, re inserted 09/24 14. Depression/Anxiety 15. Increase effusion, ? loculated/ s/p chest tube.. drainage slowing down. 10/17 S/P Exploratory laparotomy, lysis of adhesions, subtotal cholecystectomy with cholangiogram, gastrojejunostomy tube placement, pancreatic necrosectomy leukocytosis- improving Plan . Continue trach shield as tolerated Up to chair PT OT Follow surgery input DVT GI prophylaxis ABX per ID Continue TF and TPN for nutrition support DVT/GI PPX D/W RN and RT CC time 30 minutes HARMEET BEE MD Oct 28, 2019 08:36
--- NOTE | 2019-10-28 09:11 | PDOC ---
PROGRESS NOTES Chief Complaint Chief Complaint A/P Acute hypoxic Respiratory failure required mechanical ventilation Tracheostomy bilateral pleural effusions/pulm edema s/p Throacentesis on 10/03/2019 Severe Acute gallstone pancreatitis (not a surgical candidate at this time) with necrosis Acute kidney failure now requiring dialysis Gallstones (Calculus of gallbladder with acute cholecystitis without obstruction) HTN Intractable pain Intractable nausea Covid 19 negative. Acute on chronic anemia EEG: No seizure activityFever - better currently - intermittent could be from underlying pancreatitis blood cults 08/21 - neg so far ? Ileus with vomiting Abd distention - U/S and CT reviewed s/p 0.4 L of opaque, debris-containing ascites was removed 08/23 Acute pancreatitis with persistent necrosis Gallstone pancreatitis with necrosis. -CT A/P 09/23 showed multiple pseudocysts, slight larger on the right. s/p drains x 3, 09/24. + PSAE (MDRO-R Cefepime, Zosyn ALEXANDRA < 64) and yeast, -s/p drain 08/14. C. parapsilosis. s/p drain 08/23 + yeast & high amylase; s/p additional drain on 08/25. Drains removed. Ascites s/p paracentesis 08/02 & 08/23. C. parapsilosis JUANA. off HD. A large fluid collection in the pancreatic bed has slightly decreased in size, described below, the pancreas itself is difficult to visualize, which could be due to necrosis or obscuration of pancreatic parenchyma from the surrounding fluid collection.10/02 - 08/14 status post KAYLIN drain placement + C paropsilosis. s/p additional drains 08/25 Anemia - S/p PRBCs Cholelithiasis with thickening of the gallbladder wall. Leucocytosis improving JUANA, hyperkalemia, Metabolic acidosis off dialysis hypocalcemia Prediabetes HTN s/p trach ESRD on HD Hyperglycemia severe protein-caloric malnutrition Moderate to large left pleural effusion with atelectasis and collapse of most of the left lower lobe, stable Dispo - ICU, critically ill Poor prognosis History of Present Illness History of Present Illness 09/25: IR placed drain on 09/24. 4u PRBC after Hb drop. Hb 8.8 today. Off Levophed this morning. T-max 100.3. Much more lethargic today. CXR with left sided diffuse infiltrates. 6/9: Tachycardic overnight into the 140s. NGT clamped. On BIPAP currently. Drains with serosanguinous discharge. WBC 8, Tmax 99.6F. 09/27: Seen on trach shield in ICU. Hypertensive and tachycardic. Labs stable. blood stained drainage from drains. Afebrile. 09/28: Seen on trach shield in ICU. She is a bit confused, drowsy, but when sitting up is conversational and confusion somewhat clears. She is asking for more pain medication. Stable drains, still very tachy.Na 147 09/29: Patient vomited overnight. Aspirated. Tried to pull her trach out, she was told she would without her trach, she said "I know, I just want to go home". Hb 7.6. Afebrile, still very tachycardic. 1055ml out of right sided KAYLIN drain 09/30: Overnight hypoxic, on BIPAP. CXR with left sided white out lung. Significant mucous plug suctioned by RT with improvement in her ABG after 2 hours this morning. Not really active, tired, lethargic. 890ml out of drains past 24 hours. On vent. D/w daughter bedside. 10/16: To OR for pancreatic necrosectomy, cholecystectomy, lysis of adhesions, gastrostomy tube placement 10/24, awake on vent, weaning sedation, cont other, still with marked drainage 10/25: Still on fentanyl. WBC 15.4, Hb 8.7 Metabolic panel WNL except calcium 10.2 with albumin 1.1. She awakens off sedation, still connected to vent currently. 10/26: FiO2 40% 5 PEEP, WBC 13.4, Hb 7.9, platelets 551. Still on fentanyl, she is working with PT. Off vent during the day. Working with PT. Labs stable. Hb to 8.5. Working with PT/OT. She has been suctioning quite a bit of respiratory secretions as well as loose bowels. C diff pending. prognosis still poor, but improving slowly Vitals Vitals Vital Signs Date Time Temp Pulse Resp B/P (MAP) Pulse Ox O2 Delivery O2 Flow Rate FiO2 10/28/19 08:32 108 172/101 10/28/19 07:29 98 Tracheal Collar 10.0 10/28/19 06:00 36 10/28/19 04:00 99.3 99.3 Physical Exam Physical Exam GENERAL: Alert, NAD tired appearing but some better HEENT: Pupils equal, oral cavity dry. + NGT NECK: Tracheostomy LUNGS: Diminished aeration bases, CT on left HEART: S1, S2, regular w/ PVCs ABDOMEN: Sightly less distended, bowel sounds hypoactive, soft, goyal x 2, 3 KAYLIN drains, G-J tube and + wound vac : Lind in place EXTREMITIES: Generalized edema, no cyanosis. SCDs & Podus boots bilaterally SKIN: warm touch. No signs of rash. LUE-PICC without signs of complications LUE art-line out, mottling left forearm about ole art-line site is improving. RP palpable, cap refill brisk. NEURO: alert and some responsive - tracking General: Cooperative, No acute distress Heart: Regular rate (SR/ST), Other (distant heart sounds) Lungs: Crackles Abdomen: Soft, Other (multiple drains ) Extremities: Other (Diffuse edema) Skin: No rashes, No significant lesion Labs LABS Laboratory Tests Test 10/27/19 12:48 10/27/19 23:04 10/28/19 05:50 10/28/19 06:07 Glucose (Fingerstick) 131 mg/dL (70-99) 138 mg/dL (70-99) 103 mg/dL (70-99) White Blood Count 15.4 x10^3/uL (4.0-11.0) Red Blood Count 2.86 x10^6/uL (3.50-5.40) Hemoglobin 8.4 g/dL (12.0-15.5) Hematocrit 25.4 % (36.0-47.0) Mean Corpuscular Volume 89 fL (79-100) Mean Corpuscular Hemoglobin 29 pg (25-35) Mean Corpuscular Hemoglobin Concent 33 g/dL (31-37) Red Cell Distribution Width 15.0 % (11.5-14.5) Platelet Count 681 x10^3/uL (140-400) Neutrophils (%) (Auto) 84 % (31-73) Lymphocytes (%) (Auto) 8 % (24-48) Monocytes (%) (Auto) 7 % (0-9) Eosinophils (%) (Auto) 1 % (0-3) Basophils (%) (Auto) 0 % (0-3) Neutrophils # (Auto) 12.9 x10^3/uL (1.8-7.7) Lymphocytes # (Auto) 1.2 x10^3/uL (1.0-4.8) Monocytes # (Auto) 1.0 x10^3/uL (0.0-1.1) Eosinophils # (Auto) 0.2 x10^3/uL (0.0-0.7) Basophils # (Auto) 0.1 x10^3/uL (0.0-0.2) Sodium Level 143 mmol/L (136-145) Potassium Level 4.1 mmol/L (3.5-5.1) Chloride Level 107 mmol/L (98-107) Carbon Dioxide Level 32 mmol/L (21-32) Anion Gap 4 (6-14) Blood Urea Nitrogen 15 mg/dL (7-20) Creatinine 0.5 mg/dL (0.6-1.0) Estimated GFR (Cockcroft-Gault) 131.1 Glucose Level 151 mg/dL (70-99) Calcium Level 9.9 mg/dL (8.5-10.1) Assessment and Plan Assessmemt and Plan Problems Medical Problems: (1) Acute pancreatitis Status: Acute (2) Cholelithiasis Status: Acute Comment Review of Relevant I have reviewed the following items kolby (where applicable) has been applied. Labs Laboratory Tests Test 10/26/19 11:52 10/26/19 17:42 10/27/19 00:05 10/27/19 05:35 Glucose (Fingerstick) 163 mg/dL (70-99) 150 mg/dL (70-99) 144 mg/dL (70-99) White Blood Count 13.4 x10^3/uL (4.0-11.0) Red Blood Count 2.64 x10^6/uL (3.50-5.40) Hemoglobin 7.9 g/dL (12.0-15.5) Hematocrit 23.5 % (36.0-47.0) Mean Corpuscular Volume 89 fL (79-100) Mean Corpuscular Hemoglobin 30 pg (25-35) Mean Corpuscular Hemoglobin Concent 34 g/dL (31-37) Red Cell Distribution Width 15.1 % (11.5-14.5) Platelet Count 559 x10^3/uL (140-400) Neutrophils (%) (Auto) 83 % (31-73) Lymphocytes (%) (Auto) 8 % (24-48) Monocytes (%) (Auto) 7 % (0-9) Eosinophils (%) (Auto) 2 % (0-3) Basophils (%) (Auto) 0 % (0-3) Neutrophils # (Auto) 11.1 x10^3/uL (1.8-7.7) Lymphocytes # (Auto) 1.1 x10^3/uL (1.0-4.8) Monocytes # (Auto) 1.0 x10^3/uL (0.0-1.1) Eosinophils # (Auto) 0.2 x10^3/uL (0.0-0.7) Basophils # (Auto) 0.0 x10^3/uL (0.0-0.2) Sodium Level 145 mmol/L (136-145) Potassium Level 4.2 mmol/L (3.5-5.1) Chloride Level 110 mmol/L (98-107) Carbon Dioxide Level 32 mmol/L (21-32) Anion Gap 3 (6-14) Blood Urea Nitrogen 14 mg/dL (7-20) Creatinine 0.5 mg/dL (0.6-1.0) Estimated GFR (Cockcroft-Gault) 131.1 Glucose Level 150 mg/dL (70-99) Calcium Level 9.8 mg/dL (8.5-10.1) Phosphorus Level 3.6 mg/dL (2.6-4.7) Magnesium Level 2.0 mg/dL (1.8-2.4) Test 10/27/19 05:50 10/27/19 12:48 10/27/19 23:04 10/28/19 05:50 Glucose (Fingerstick) 144 mg/dL (70-99) 131 mg/dL (70-99) 138 mg/dL (70-99) White Blood Count 15.4 x10^3/uL (4.0-11.0) Red Blood Count 2.86 x10^6/uL (3.50-5.40) Hemoglobin 8.4 g/dL (12.0-15.5) Hematocrit 25.4 % (36.0-47.0) Mean Corpuscular Volume 89 fL (79-100) Mean Corpuscular Hemoglobin 29 pg (25-35) Mean Corpuscular Hemoglobin Concent 33 g/dL (31-37) Red Cell Distribution Width 15.0 % (11.5-14.5) Platelet Count 681 x10^3/uL (140-400) Neutrophils (%) (Auto) 84 % (31-73) Lymphocytes (%) (Auto) 8 % (24-48) Monocytes (%) (Auto) 7 % (0-9) Eosinophils (%) (Auto) 1 % (0-3) Basophils (%) (Auto) 0 % (0-3) Neutrophils # (Auto) 12.9 x10^3/uL (1.8-7.7) Lymphocytes # (Auto) 1.2 x10^3/uL (1.0-4.8) Monocytes # (Auto) 1.0 x10^3/uL (0.0-1.1) Eosinophils # (Auto) 0.2 x10^3/uL (0.0-0.7) Basophils # (Auto) 0.1 x10^3/uL (0.0-0.2) Sodium Level 143 mmol/L (136-145) Potassium Level 4.1 mmol/L (3.5-5.1) Chloride Level 107 mmol/L (98-107) Carbon Dioxide Level 32 mmol/L (21-32) Anion Gap 4 (6-14) Blood Urea Nitrogen 15 mg/dL (7-20) Creatinine 0.5 mg/dL (0.6-1.0) Estimated GFR (Cockcroft-Gault) 131.1 Glucose Level 151 mg/dL (70-99) Calcium Level 9.9 mg/dL (8.5-10.1) Test 10/28/19 06:07 Glucose (Fingerstick) 103 mg/dL (70-99) Laboratory Tests Test 10/27/19 12:48 10/27/19 23:04 10/28/19 05:50 10/28/19 06:07 Glucose (Fingerstick) 131 mg/dL (70-99) 138 mg/dL (70-99) 103 mg/dL (70-99) White Blood Count 15.4 x10^3/uL (4.0-11.0) Red Blood Count 2.86 x10^6/uL (3.50-5.40) Hemoglobin 8.4 g/dL (12.0-15.5) Hematocrit 25.4 % (36.0-47.0) Mean Corpuscular Volume 89 fL (79-100) Mean Corpuscular Hemoglobin 29 pg (25-35) Mean Corpuscular Hemoglobin Concent 33 g/dL (31-37) Red Cell Distribution Width 15.0 % (11.5-14.5) Platelet Count 681 x10^3/uL (140-400) Neutrophils (%) (Auto) 84 % (31-73) Lymphocytes (%) (Auto) 8 % (24-48) Monocytes (%) (Auto) 7 % (0-9) Eosinophils (%) (Auto) 1 % (0-3) Basophils (%) (Auto) 0 % (0-3) Neutrophils # (Auto) 12.9 x10^3/uL (1.8-7.7) Lymphocytes # (Auto) 1.2 x10^3/uL (1.0-4.8) Monocytes # (Auto) 1.0 x10^3/uL (0.0-1.1) Eosinophils # (Auto) 0.2 x10^3/uL (0.0-0.7) Basophils # (Auto) 0.1 x10^3/uL (0.0-0.2) Sodium Level 143 mmol/L (136-145) Potassium Level 4.1 mmol/L (3.5-5.1) Chloride Level 107 mmol/L (98-107) Carbon Dioxide Level 32 mmol/L (21-32) Anion Gap 4 (6-14) Blood Urea Nitrogen 15 mg/dL (7-20) Creatinine 0.5 mg/dL (0.6-1.0) Estimated GFR (Cockcroft-Gault) 131.1 Glucose Level 151 mg/dL (70-99) Calcium Level 9.9 mg/dL (8.5-10.1) Microbiology 10/18/19 Gram Stain - Final, Complete 10/18/19 Aerobic and Anaerobic Culture - Final, Complete 10/18/19 Antimicrobic Susceptibility - Final, Complete 10/16/19 Blood Culture - Final, Complete NO GROWTH AFTER 5 DAYS 10/03/19 Gram Stain - Final, Complete 10/03/19 Aerobic and Anaerobic Culture - Final, Complete 10/01/19 Gram Stain Evaluation - Final, Complete 10/01/19 Respiratory Culture - Final, Complete 10/01/19 Antimicrobic Susceptibility - Final, Complete 09/25/19 Urine Culture - Final, Complete 09/17/19 Gram Stain - Final, Complete 09/17/19 Aerobic Culture - Final, Complete Medications Current Medications Sodium Chloride 1,000 ml @ 1,000 mls/hr Q1H IV Last administered on 07/04/19at 03:00; Start 07/04/19 at 03:00; Stop 07/04/19 at 03:59; Status DC Ondansetron HCl (Zofran) 4 mg 1X ONCE IVP Last administered on 07/04/19at 03:27; Start 07/04/19 at 03:00; Stop 07/04/19 at 03:01; Status DC Morphine Sulfate (Morphine Sulfate) 4 mg 1X ONCE IV ; Start 07/04/19 at 03:00; Stop 07/04/19 at 03:01; Status Cancel Ketorolac Tromethamine (Toradol 30mg Vial) 30 mg 1X ONCE IV Last administered on 07/04/19at 02:54; Start 07/04/19 at 03:00; Stop 07/04/19 at 03:01; Status DC Fentanyl Citrate (Fentanyl 2ml Vial) 25 mcg 1X ONCE IVP Last administered on 07/04/19at 03:23; Start 07/04/19 at 03:30; Stop 07/04/19 at 03:31; Status DC Fentanyl Citrate (Fentanyl 2ml Vial) 100 mcg STK-MED ONCE .ROUTE ; Start 07/04/19 at 03:18; Stop 07/04/19 at 03:18; Status DC Iohexol (Omnipaque 350 Mg/ml) 90 ml 1X ONCE IV Last administered on 07/04/19at 03:25; Start 07/04/19 at 03:30; Stop 07/04/19 at 03:31; Status DC Info (CONTRAST GIVEN -- Rx MONITORING) 1 each PRN DAILY PRN MC SEE COMMENTS; Start 07/04/19 at 03:30; Stop 07/06/19 at 03:29; Status DC Hydromorphone HCl (Dilaudid) 0.5 mg 1X ONCE IV Last administered on 07/04/19at 03:55; Start 07/04/19 at 04:30; Stop 07/04/19 at 04:32; Status DC Ondansetron HCl (Zofran) 4 mg PRN Q8HRS PRN IV NAUSEA/VOMITING 1ST CHOICE; Start 07/04/19 at 05:00; Stop 07/04/19 at 09:27; Status DC Morphine Sulfate (Morphine Sulfate) 2 mg PRN Q2HR PRN IV SEVERE PAIN 7-10 Last administered on 07/05/19at 12:26; Start 07/04/19 at 05:00; Stop 07/05/19 at 14:15; Status DC Sodium Chloride 1,000 ml @ 125 mls/hr Q8H IV Last administered on 07/04/19at 20:56; Start 07/04/19 at 05:00; Stop 07/05/19 at 04:59; Status DC Hydromorphone HCl (Dilaudid) 0.5 mg PRN Q3HRS PRN IV SEVERE PAIN 7-10 Last administered on 07/05/19at 10:06; Start 07/04/19 at 05:00; Stop 07/05/19 at 12:01; Status DC Piperacillin Sod/ Tazobactam Sod 4.5 gm/Sodium Chloride 100 ml @ 200 mls/hr 1X ONCE IV Last administered on 07/04/19at 05:44; Start 07/04/19 at 06:00; Stop 07/04/19 at 06:29; Status DC Ondansetron HCl (Zofran) 4 mg PRN Q4HRS PRN IV NAUSEA/VOMITING 1ST CHOICE Last administered on 10/27/19at 22:37; Start 07/04/19 at 09:30 Insulin Human Lispro (HumaLOG) 0-9 UNITS Q6HRS SQ Last administered on 10/26/19at 11:54; Start 07/04/19 at 09:30 Dextrose (Dextrose 50%-Water Syringe) 12.5 gm PRN Q15MIN PRN IV SEE COMMENTS; Start 07/04/19 at 09:30 Pantoprazole Sodium (PROTONIX VIAL for IV PUSH) 40 mg DAILYAC IVP Last admi nistered on 10/28/19at 08:31; Start 07/04/19 at 11:30 Prochlorperazine Edisylate (Compazine) 10 mg PRN Q6HRS PRN IV NAUSEA/VOMITING, 2nd CHOICE Last administered on 10/15/19at 10:53; Start 07/04/19 at 17:45 Atenolol (Tenormin) 100 mg DAILY PO ; Start 07/05/19 at 09:00; Stop 07/04/19 at 20:08; Status DC Metoprolol Tartrate (Lopressor Vial) 2.5 mg Q6HRS IVP Last administered on 07/04at 05:51; Start 07/04/19 at 20:15; Stop 07/05/19 at 10:02; Status DC Metoprolol Tartrate (Lopressor Vial) 5 mg Q6HRS IVP Last administered on 07/14/19at 00:12; Start 07/05/19 at 10:15; Stop 07/16/19 at 08:48; Status DC Hydromorphone HCl (Dilaudid) 1 mg PRN Q3HRS PRN IV SEVERE PAIN 7-10 Last administered on 07/11/19at 05:13; Start 07/05/19 at 12:00; Stop 07/19/19 at 00:25; Status DC Lidocaine HCl (Buffered Lidocaine 1%) 3 ml STK-MED ONCE .ROUTE ; Start 07/05/19 at 12:55; Stop 07/05/19 at 12:56; Status DC Albumin Human 500 ml @ 125 mls/hr 1X ONCE IV Last administered on 07/05/19at 14:33; Start 07/05/19 at 14:30; Stop 07/05/19 at 18:32; Status DC Norepinephrine Bitartrate 8 mg/ Dextrose 258 ml @ 17.299 mls/ hr CONT PRN IV PER PROTOCOL Last administered on 08/02/19at 12:48; Start 07/05/19 at 15:30; Stop 08/05/19 at 09:19; Status DC Sodium Chloride 1,000 ml @ 125 mls/hr Q8H IV Last administered on 07/05/19at 21:04; Start 07/05/19 at 16:00; Stop 07/06/19 at 02:42; Status DC Albumin Human 500 ml @ 125 mls/hr PRN BID PRN IV After every 2L NSS & BP < 90mm Last administered on 10/18/19at 16:06; Start 07/05/19 at 16:00; Stop 10/21/19 at 09:30; Status DC Iohexol (Omnipaque 300 Mg/ml) 60 ml 1X ONCE IV Last administered on 07/05/19at 17:20; Start 07/05/19 at 17:00; Stop 07/05/19 at 17:01; Status DC Info (CONTRAST GIVEN -- Rx MONITORING) 1 each PRN DAILY PRN MC SEE COMMENTS; Start 07/05/19 at 17:00; Stop 07/07/19 at 16:59; Status DC Meropenem 1 gm/ Sodium Chloride 100 ml @ 200 mls/hr Q8HRS IV Last administered on 07/06/19at 05:45; Start 07/05/19 at 20:00; Stop 07/06/19 at 08:48; Status DC Furosemide (Lasix) 40 mg 1X ONCE IVP Last administered on 07/05/19at 22:12; Start 07/05/19 at 22:30; Stop 07/05/19 at 22:31; Status DC Calcium Chloride 1000 mg/Sodium Chloride 110 ml @ 220 mls/hr 1X ONCE IV Last administered on 07/05/19at 22:11; Start 07/05/19 at 22:30; Stop 07/05/19 at 22:59; Status DC Albuterol Sulfate (Ventolin Neb Soln) 2.5 mg 1X ONCE NEB Last administered on 07/06/19at 00:56; Start 07/05/19 at 22:30; Stop 07/05/19 at 22:31; Status DC Insulin Human Regular (HumuLIN R VIAL) 5 unit 1X ONCE IV Last administered on 07/05/19at 22:14; Start 07/05/19 at 22:30; Stop 07/05/19 at 22:31; Status DC Magnesium Sulfate 50 ml @ 25 mls/hr 1X ONCE IV Last administered on 07/06/19at 02:57; Start 07/06/19 at 03:00; Stop 07/06/19 at 04:59; Status DC Calcium Gluconate 1000 mg/Sodium Chloride 110 ml @ 220 mls/hr 1X ONCE IV Last administered on 07/06/19at 02:46; Start 07/06/19 at 03:00; Stop 07/06/19 at 03:29; Status DC Sodium Chloride 1,000 ml @ 200 mls/hr Q5H IV Last administered on 07/06/19at 02:46; Start 07/06/19 at 03:00; Stop 07/06/19 at 10:21; Status DC Calcium Gluconate 1000 mg/Sodium Chloride 110 ml @ 220 mls/hr 1X ONCE IV Last administered on 07/06/19at 03:21; Start 07/06/19 at 03:30; Stop 07/06/19 at 03:59; Status DC Sodium Bicarbonate 50 meq/Sodium Chloride 1,050 ml @ 75 mls/hr Q14H IV Last administered on 07/10/19at 21:10; Start 07/06/19 at 07:30; Stop 07/11/19 at 10:28; Status DC Calcium Gluconate 2000 mg/Sodium Chloride 120 ml @ 220 mls/hr 1X ONCE IV Last administered on 07/06/19at 09:05; Start 07/06/19 at 07:30; Stop 07/06/19 at 08:02; Status DC Lidocaine HCl (Xylocaine-Mpf 1% 2ml Vial) 2 ml STK-MED ONCE .ROUTE ; Start 07/06/19 at 08:47; Stop 07/06/19 at 08:47; Status DC Meropenem 500 mg/ Sodium Chloride 50 ml @ 100 mls/hr Q12HR IV Last administered on 07/11/19at 21:01; Start 07/06/19 at 18:00; Stop 07/12/19 at 07:58; Status DC Lidocaine HCl (Buffered Lidocaine 1%) 3 ml STK-MED ONCE .ROUTE ; Start 07/06/19 at 09:46; Stop 07/06/19 at 09:46; Status DC Lidocaine HCl (Buffered Lidocaine 1%) 6 ml 1X ONCE INJ Last administered on 07/06/19at 10:26; Start 07/06/19 at 10:15; Stop 07/06/19 at 10:16; Status DC Info (Tpn Per Pharmacy) 1 each PRN DAILY PRN MC SEE COMMENTS Last administered on 10/27/19at 13:13; Start 07/06/19 at 12:00 Sodium Chloride 1,000 ml @ 1,000 mls/hr Q1H PRN IV hypotension; Start 07/06/19 at 12:07; Stop 07/06/19 at 18:06; Status DC Diphenhydramine HCl (Benadryl) 25 mg 1X PRN PRN IV ITCHING; Start 07/06/19 at 12:15; Stop 07/07/19 at 12:14; Status DC Diphenhydramine HCl (Benadryl) 25 mg 1X PRN PRN IV ITCHING; Start 07/06/19 at 12:15; Stop 07/07/19 at 12:14; Status DC Sodium Chloride 1,000 ml @ 400 mls/hr Q2H30M PRN IV PATENCY; Start 07/06/19 at 12:07; Stop 07/07/19 at 00:06; Status DC Info (PHARMACY MONITORING -- do not chart) 1 each PRN DAILY PRN MC SEE COMMENTS; Start 07/06/19 at 12:15; Stop 07/08/19 at 08:13; Status DC Sodium Chloride 90 meq/Calcium Gluconate 10 meq/ Multivitamins 10 ml/Chromium/ Copper/Manganese/ Seleni/Zn 1 ml/ Total Parenteral Nutrition/Amino Acids/Dextrose/ Fat Emulsion Intravenous 55.005 ml @ 2.292 mls/hr TPN CONT IV ; Start 07/06/19 at 22:00; Stop 07/06/19 at 12:33; Status DC Info (Tpn Per Pharmacy) 1 each PRN DAILY PRN MC SEE COMMENTS; Start 07/06/19 at 12:30; Status UNV Sodium Chloride 90 meq/Calcium Gluconate 10 meq/ Multivitamins 10 ml/Chromium/ Copper/Manganese/ Seleni/Zn 0.5 ml/ Total Parenteral Nutrition/Amino Acids/Dextrose/ Fat Emulsion Intravenous 1,512 ml @ 63 mls/hr TPN CONT IV Last administered on 07/06/19at 22:06; Start 07/06/19 at 22:00; Stop 07/07/19 at 21:59; Status DC Calcium Carbonate/ Glycine (Tums) 500 mg PRN AFTMEALHC PRN PO INDIGESTION; Start 07/06/19 at 17:45; Stop 08/31/19 at 10:25; Status DC Calcium Gluconate (Calcium Gluconate) 2,000 mg 1X ONCE IVP Last administered on 07/07/19at 02:19; Start 07/07/19 at 02:15; Stop 07/07/19 at 02:16; Status DC Calcium Chloride 3000 mg/Sodium Chloride 1,030 ml @ 50 mls/hr [id number] IV Last administered on 07/09/19at 02:17; Start 07/07/19 at 08:00; Stop 07/09/19 at 15:23; Status DC Lorazepam (Ativan Inj) 1 mg PRN Q4HRS PRN IVP ANXIETY / AGITATION, 2nd choic Last administered on 08/05/19at 03:51; Start 07/07/19 at 09:00; Stop 08/05/19 at 09:19; Status DC Sodium Chloride 1,000 ml @ 1,000 mls/hr Q1H PRN IV hypotension; Start 07/07/19 at 08:56; Stop 07/07/19 at 14:55; Status DC Albumin Human 200 ml @ 200 mls/hr 1X PRN PRN IV Hypotension; Start 07/07/19 at 09:00; Stop 07/07/19 at 14:59; Status DC Diphenhydramine HCl (Benadryl) 25 mg 1X PRN PRN IV ITCHING; Start 07/07/19 at 09:00; Stop 07/08/19 at 08:59; Status DC Diphenhydramine HCl (Benadryl) 25 mg 1X PRN PRN IV ITCHING; Start 07/07/19 at 09:00; Stop 07/08/19 at 08:59; Status DC Sodium Chloride 1,000 ml @ 400 mls/hr Q2H30M PRN IV PATENCY; Start 07/07/19 at 08:56; Stop 07/07/19 at 20:55; Status DC Info (PHARMACY MONITORING -- do not chart) 1 each PRN DAILY PRN MC SEE COMMENTS; Start 07/07/19 at 09:00; Status UNV Info (PHARMACY MONITORING -- do not chart) 1 each PRN DAILY PRN MC SEE COMMENTS; Start 07/07/19 at 09:00; Stop 07/08/19 at 08:13; Status DC Digoxin (Lanoxin) 500 mcg 1X ONCE IV Last administered on 07/07/19at 10:04; Start 07/07/19 at 10:00; Stop 07/07/19 at 10:01; Status DC Digoxin (Lanoxin) 125 mcg 1X ONCE IV Last administered on 07/07/19at 17:10; Start 07/07/19 at 18:00; Stop 07/07/19 at 18:01; Status DC Magnesium Sulfate 100 ml @ 25 mls/hr 1X ONCE IV Last administered on 07/07/19at 12:48; Start 07/07/19 at 13:00; Stop 07/07/19 at 16:59; Status DC Sodium Chloride 90 meq/Magnesium Sulfate 10 meq/ Calcium Gluconate 20 meq/ Multivitamins 10 ml/Chromium/ Copper/Manganese/ Seleni/Zn 0.5 ml/ Total Parenteral Nutrition/Amino Acids/Dextrose/ Fat Emulsion Intravenous 1,512 ml @ 63 mls/hr TPN CONT IV Last administered on 07/07/19at 22:25; Start 07/07/19 at 22:00; Stop 07/08/19 at 21:59; Status DC Sodium Chloride 1,000 ml @ 1,000 mls/hr Q1H PRN IV hypotension; Start 07/08/19 at 08:05; Stop 07/08/19 at 14:04; Status DC Albumin Human 200 ml @ 200 mls/hr 1X ONCE IV Last administered on 07/08/19at 08:57; Start 07/08/19 at 08:15; Stop 07/08/19 at 09:14; Status DC Diphenhydramine HCl (Benadryl) 25 mg 1X PRN PRN IV ITCHING; Start 07/08/19 at 08:15; Stop 07/09/19 at 08:14; Status DC Diphenhydramine HCl (Benadryl) 25 mg 1X PRN PRN IV ITCHING; Start 07/08/19 at 08:15; Stop 07/09/19 at 08:14; Status DC Sodium Chloride 1,000 ml @ 400 mls/hr Q2H30M PRN IV PATENCY; Start 07/08/19 at 08:05; Stop 07/08/19 at 20:04; Status DC Info (PHARMACY MONITORING -- do not chart) 1 each PRN DAILY PRN MC SEE COMMENTS; Start 07/08/19 at 08:15; Stop 07/12/19 at 07:57; Status DC Sodium Chloride 90 meq/Potassium Chloride 15 meq/ Potassium Phosphate 10 mmol/ Magnesium Sulfate 10 meq/Calcium Gluconate 20 meq/ Multivitamins 10 ml/Chromium/ Copper/Manganese/ Seleni/Zn 0.5 ml/ Total Parenteral Nutrition/Amino Acids/Dextrose/ Fat Emulsion Intravenous 1,512 ml @ 63 mls/hr TPN CONT IV Last administered on 07/08/19at 21:01; Start 07/08/19 at 22:00; Stop 07/09/19 at 21:59; Status DC Potassium Chloride/Water 100 ml @ 100 mls/hr 1X ONCE IV Last administered on 07/08/19at 14:09; Start 07/08/19 at 14:00; Stop 07/08/19 at 14:59; Status DC Benzocaine (Hurricaine One) 1 spray 1X ONCE MM Last administered on 07/08/19at 16:38; Start 07/08/19 at 14:30; Stop 07/08/19 at 14:31; Status DC Lidocaine HCl (Glydo (Lidocaine) Jelly) 1 ramu 1X ONCE MM Last administered on 07/08/19at 16:38; Start 07/08/19 at 14:30; Stop 07/08/19 at 14:31; Status DC Linezolid/Dextrose 300 ml @ 300 mls/hr Q12HR IV Last administered on 07/14/19at 21:04; Start 07/08/19 at 20:00; Stop 07/15/19 at 07:50; Status DC Acetaminophen (Tylenol) 650 mg PRN Q6HRS PRN PO MILD PAIN / TEMP; Start 07/09/19 at 03:30; Stop 07/09/19 at 03:36; Status DC Acetaminophen (Tylenol) 650 mg PRN Q6HRS PRN PEG MILD PAIN / TEMP Last administered on 08/04/19at 19:56; Start 07/09/19 at 03:36; Stop 08/31/19 at 10:25; Status DC Sodium Chloride 1,000 ml @ 1,000 mls/hr Q1H PRN IV hypotension; Start 07/09/19 at 07:50; Stop 07/09/19 at 13:49; Status DC Albumin Human 200 ml @ 200 mls/hr 1X PRN PRN IV Hypotension; Start 07/09/19 at 08:00; Stop 07/09/19 at 13:59; Status DC Sodium Chloride (Normal Saline Flush) 10 ml 1X PRN PRN IV AP catheter pack; Start 07/09/19 at 08:00; Stop 07/10/19 at 07:59; Status DC Sodium Chloride (Normal Saline Flush) 10 ml 1X PRN PRN IV BUS ATTENDANT catheter pack; Start 07/09/19 at 08:00; Stop 07/10/19 at 07:59; Status DC Sodium Chloride 1,000 ml @ 400 mls/hr Q2H30M PRN IV PATENCY; Start 07/09/19 at 07:50; Stop 07/09/19 at 19:49; Status DC Info (PHARMACY MONITORING -- do not chart) 1 each PRN DAILY PRN MC SEE COMMENTS; Start 07/09/19 at 08:00; Status UNV Info (PHARMACY MONITORING -- do not chart) 1 each PRN DAILY PRN MC SEE COMMENTS; Start 07/09/19 at 08:00; Stop 07/11/19 at 08:25; Status DC Sodium Chloride 90 meq/Potassium Chloride 15 meq/ Potassium Phosphate 10 mmol/ Magnesium Sulfate 10 meq/Calcium Gluconate 20 meq/ Multivitamins 10 ml/Chromium/ Copper/Manganese/ Seleni/Zn 0.5 ml/ Total Parenteral Nutrition/Amino Acids/Dextrose/ Fat Emulsion Intravenous 1,512 ml @ 63 mls/hr TPN CONT IV Last administered on 07/09/19at 20:57; Start 07/09/19 at 22:00; Stop 07/10/19 at 21:59; Status DC Sodium Chloride 90 meq/Potassium Chloride 15 meq/ Potassium Phosphate 15 mmol/ Magnesium Sulfate 10 meq/Calcium Gluconate 20 meq/ Multivitamins 10 ml/Chromium/ Copper/Manganese/ Seleni/Zn 0.5 ml/ Total Parenteral Nutrition/Amino Acids/Dextrose/ Fat Emulsion Intravenous 1,512 ml @ 63 mls/hr TPN CONT IV ; Start 07/10/19 at 22:00; Stop 07/10/19 at 14:16; Status DC Sodium Chloride 90 meq/Potassium Chloride 15 meq/ Potassium Phosphate 15 mmol/ Magnesium Sulfate 10 meq/Calcium Gluconate 20 meq/ Multivitamins 10 ml/Chromium/ Copper/Manganese/ Seleni/Zn 0.5 ml/ Total Parenteral Nutrition/Amino Acids/Dextrose/ Fat Emulsion Intravenous 1,200 ml @ 50 mls/hr TPN CONT IV ; Start 07/10/19 at 22:00; Stop 07/10/19 at 14:17; Status DC Sodium Chloride 90 meq/Potassium Chloride 15 meq/ Potassium Phosphate 10 mmol/ Magnesium Sulfate 10 meq/Calcium Gluconate 20 meq/ Multivitamins 10 ml/Chromium/ Copper/Manganese/ Seleni/Zn 0.5 ml/ Total Parenteral Nutrition/Amino Acids/Dextrose/ Fat Emulsion Intravenous 1,200 ml @ 50 mls/hr TPN CONT IV Last administered on 07/10/19at 23:29; Start 07/10/19 at 22:00; Stop 07/11/19 at 21:59; Status DC Sodium Chloride 1,000 ml @ 1,000 mls/hr Q1H PRN IV hypotension; Start 07/11/19 at 07:28; Stop 07/11/19 at 13:27; Status DC Albumin Human 200 ml @ 200 mls/hr 1X ONCE IV Last administered on 07/11/19at 08:51; Start 07/11/19 at 07:30; Stop 07/11/19 at 08:29; Status DC Diphenhydramine HCl (Benadryl) 25 mg 1X PRN PRN IV ITCHING; Start 07/11/19 at 07:30; Stop 07/12/19 at 07:29; Status DC Diphenhydramine HCl (Benadryl) 25 mg 1X PRN PRN IV ITCHING; Start 07/11/19 at 07:30; Stop 07/12/19 at 07:29; Status DC Sodium Chloride 1,000 ml @ 400 mls/hr Q2H30M PRN IV PATENCY; Start 07/11/19 at 07:28; Stop 07/11/19 at 19:27; Status DC Info (PHARMACY MONITORING -- do not chart) 1 each PRN DAILY PRN MC SEE COMMENTS ; Start 07/11/19 at 07:30; Stop 07/22/19 at 13:01; Status DC Metronidazole 100 ml @ 100 mls/hr Q6HRS IV Last administered on 07/27/19at 06:26; Start 07/11/19 at 08:30; Stop 07/27/19 at 09:58; Status DC Micafungin Sodium 100 mg/Dextrose 100 ml @ 100 mls/hr Q24H IV Last administered on 08/18/19at 08:18; Start 07/11/19 at 09:00; Stop 08/18/19 at 20:58; Status DC Propofol 0 ml @ As Directed STK-MED ONCE IV ; Start 07/11/19 at 07:53; Stop 07/11/19 at 07:53; Status DC Etomidate (Amidate) 20 mg STK-MED ONCE IV ; Start 07/11/19 at 07:53; Stop 07/11/19 at 07:54; Status DC Midazolam HCl (Versed) 5 mg STK-MED ONCE .ROUTE ; Start 07/11/19 at 07:57; Stop 07/11/19 at 07:57; Status DC Fentanyl Citrate 30 ml @ 0 mls/hr CONT PRN IV SEE PROTOCOL Last administered on 08/05/19at 06:12; Start 07/11/19 at 08:15; Stop 08/05/19 at 09:19; Status DC Artificial Tears (Artificial Tears) 1 drop PRN Q1HR PRN OU DRY EYE, 1st choice; Start 07/11/19 at 08:15; Stop 08/17/19 at 05:31; Status DC Midazolam HCl 50 mg/Sodium Chloride 50 ml @ 0 mls/hr CONT PRN IV SEE PROTOCOL Last administered on 07/14/19at 22:39; Start 07/11/19 at 08:15; Stop 07/16/19 at 15:59; Status DC Etomidate (Amidate) 8 mg 1X ONCE IV Last administered on 07/11/19at 08:33; Start 07/11/19 at 08:30; Stop 07/11/19 at 08:31; Status DC Succinylcholine Chloride (Anectine) 120 mg 1X ONCE IV Last administered on 07/11/19at 08:34; Start 07/11/19 at 08:30; Stop 07/11/19 at 08:31; Status DC Midazolam HCl (Versed) 5 mg 1X ONCE IV ; Start 07/11/19 at 08:30; Stop 07/11/19 at 08:31; Status DC Potassium Chloride 15 meq/ Bicarbonate Dialysis Soln w/ out KCl 5,007.5 ml @ 1,000 mls/ hr Q5H1M IV Last administered on 07/12/19at 11:11; Start 07/11/19 at 12:00; Stop 07/12/19 at 11:15; Status DC Potassium Chloride 15 meq/ Bicarbonate Dialysis Soln w/ out KCl 5,007.5 ml @ 1,000 mls/ hr Q5H1M IV Last administered on 07/12/19at 11:12; Start 07/11/19 at 12:00; Stop 07/12/19 at 11:17; Status DC Potassium Chloride 15 meq/ Bicarbonate Dialysis Soln w/ out KCl 5,007.5 ml @ 1,000 mls/ hr Q5H1M IV Last administered on 07/12/19at 11:11; Start 07/11/19 at 12:00; Stop 07/12/19 at 11:19; Status DC Sodium Chloride 90 meq/Potassium Chloride 15 meq/ Potassium Phosphate 10 mmol/ Magnesium Sulfate 10 meq/Calcium Gluconate 20 meq/ Multivitamins 10 ml/Chromium/ Copper/Manganese/ Seleni/Zn 0.5 ml/ Total Parenteral Nutrition/Amino Acids/Dextrose/ Fat Emulsion Intravenous 1,400 ml @ 58.333 mls/ hr TPN CONT IV Last administered on 07/11/19at 21:42; Start 07/11/19 at 22:00; Stop 07/12/19 at 21:59; Status DC Heparin Sodium (Porcine) (Heparin Sodium) 5,000 unit Q8HRS SQ Last administered on 07/16/19at 05:55; Start 07/11/19 at 15:00; Stop 07/16/19 at 13:28; Status DC Meropenem 500 mg/ Sodium Chloride 50 ml @ 100 mls/hr Q6HRS IV Last administered on 07/13/19at 06:00; Start 07/12/19 at 09:00; Stop 07/13/19 at 07:29; Status DC Potassium Phosphate 20 mmol/ Sodium Chloride 106.6667 ml @ 51.667 m... 1X ONCE IV Last administered on 07/12/19at 11:22; Start 07/12/19 at 10:15; Stop 07/12/19 at 12:18; Status DC Acetaminophen (Tylenol Supp) 650 mg PRN Q6HRS PRN TN MILD PAIN / TEMP > 100.3'F Last administered on 10/17/19at 18:16; Start 07/12/19 at 10:30 Potassium Chloride/Water 100 ml @ 100 mls/hr Q1H IV Last administered on 07/12/19at 12:12; Start 07/12/19 at 11:00; Stop 07/12/19 at 12:59; Status DC Potassium Chloride 20 meq/ Bicarbonate Dialysis Soln w/ out KCl 5,010 ml @ 1,000 mls/hr Q5H1M IV Last administered on 07/13/19at 08:48; Start 07/12/19 at 12:00; Stop 07/13/19 at 13:03; Status DC Potassium Chloride 20 meq/ Bicarbonate Dialysis Soln w/ out KCl 5,010 ml @ 1,000 mls/hr Q5H1M IV Last administered on 07/17/19at 14:52; Start 07/12/19 at 11:30; Stop 07/17/19 at 19:59; Status DC Potassium Chloride 20 meq/ Bicarbonate Dialysis Soln w/ out KCl 5,010 ml @ 1,000 mls/hr Q5H1M IV Last administered on 07/17/19at 14:53; Start 07/12/19 at 11:30; Stop 07/17/19 at 19:59; Status DC Sodium Chloride 90 meq/Potassium Chloride 15 meq/ Potassium Phosphate 15 mmol/ Magnesium Sulfate 10 meq/Calcium Gluconate 15 meq/ Multivitamins 10 ml/Chromium/ Copper/Manganese/ Seleni/Zn 0.5 ml/ Total Parenteral Nutrition/Amino Acids/Dextrose/ Fat Emulsion Intravenous 1,400 ml @ 58.333 mls/ hr TPN CONT IV Last administered on 07/12/19at 22:17; Start 07/12/19 at 22:00; Stop 07/13/19 at 21:59; Status DC Cefepime HCl (Maxipime) 2 gm Q12HR IVP Last administered on 07/26/19at 20:56; Start 07/13/19 at 09:00; Stop 07/27/19 at 09:58; Status DC Daptomycin 500 mg/ Sodium Chloride 50 ml @ 100 mls/hr Q48H IV Last administered on 07/29/19at 09:57; Start 07/13/19 at 08:30; Stop 07/29/19 at 10:07; Status DC Lidocaine HCl (Buffered Lidocaine 1%) 3 ml 1X ONCE INJ Last administered on 07/13/19at 10:27; Start 07/13/19 at 10:30; Stop 07/13/19 at 10:31; Status DC Potassium Phosphate 20 mmol/ Sodium Chloride 106.6667 ml @ 51.667 m... 1X ONCE IV Last administered on 07/13/19at 12:51; Start 07/13/19 at 13:00; Stop 07/13/19 at 15:03; Status DC Sodium Chloride 90 meq/Potassium Chloride 15 meq/ Potassium Phosphate 18 mmol/ Magnesium Sulfate 8 meq/Calcium Gluconate 15 meq/ Multivitamins 10 ml/Chromium/ Copper/Manganese/ Seleni/Zn 0.5 ml/ Total Parenteral Nutrition/Amino Acids/Dextrose/ Fat Emulsion Intravenous 1,400 ml @ 58.333 mls/ hr TPN CONT IV Last administered on 07/13/19at 22:16; Start 07/13/19 at 22:00; Stop 07/14/19 at 21:59; Status DC Potassium Chloride 20 meq/ Bicarbonate Dialysis Soln w/ out KCl 5,010 ml @ 1,000 mls/hr Q5H1M IV Last administered on 07/17/19at 14:54; Start 07/13/19 at 16:00; Stop 07/17/19 at 19:59; Status DC Multi-Ingred Cream/Lotion/Oil/ Oint (Artificial Tears Eye Ointment) 1 ramu PRN Q1HR PRN OU DRY EYE, 2nd choice Last administered on 08/01/19at 08:19; Start at 17:30; Stop 09/21/19 at 14:39; Status DC Sodium Chloride 90 meq/Potassium Chloride 15 meq/ Potassium Phosphate 18 mmol/ Magnesium Sulfate 8 meq/Calcium Gluconate 15 meq/ Multivitamins 10 ml/Chromium/ Copper/Manganese/ Seleni/Zn 0.5 ml/ Total Parenteral Nutrition/Amino Acids/Dextrose/ Fat Emulsion Intravenous 1,400 ml @ 58.333 mls/ hr TPN CONT IV Last administered on 07/14/19at 22:00; Start 07/14/19 at 22:00; Stop 07/15/19 at 21:59; Status DC Albumin Human 500 ml @ 125 mls/hr 1X ONCE IV ; Start 07/14/19 at 14:15; Stop 07/14/19 at 18:14; Status DC Sodium Chloride 90 meq/Potassium Chloride 15 meq/ Potassium Phosphate 18 mmol/ Magnesium Sulfate 8 meq/Calcium Gluconate 15 meq/ Multivitamins 10 ml/Chromium/ Copper/Manganese/ Seleni/Zn 0.5 ml/ Insulin Human Regular 10 unit/ Total Parenteral Nutrition/Amino Acids/Dextrose/ Fat Emulsion Intravenous 1,400 ml @ 58.333 mls/ hr TPN CONT IV Last administered on 07/15/19at 21:43; Start 07/15/19 at 22:00; Stop 07/16/19 at 21:59; Status DC Lidocaine HCl (Buffered Lidocaine 1%) 3 ml STK-MED ONCE .ROUTE ; Start 07/13/19 at 10:00; Stop 07/15/19 at 13:57; Status DC Midazolam HCl 100 mg/Sodium Chloride 100 ml @ 7 mls/hr CONT PRN IV SEE PROTOCOL Last administered on 07/27/19at 15:35; Start 07/16/19 at 16:00; Stop 09/21/19 at 14:38; Status DC Sodium Chloride 90 meq/Potassium Chloride 15 meq/ Potassium Phosphate 18 mmol/ Magnesium Sulfate 8 meq/Calcium Gluconate 15 meq/ Multivitamins 10 ml/Chromium/ Copper/Manganese/ Seleni/Zn 0.5 ml/ Insulin Human Regular 15 unit/ Total Parenteral Nutrition/Amino Acids/Dextrose/ Fat Emulsion Intravenous 1,400 ml @ 58.333 mls/ hr TPN CONT IV Last administered on 07/16/19at 20:34; Start 07/16/19 at 22:00; Stop 07/17/19 at 21:59; Status DC Info (Icu Electrolyte Protocol) 1 ea CONT PRN PRN MC PER PROTOCOL; Start 07/17/19 at 13:15 Sodium Chloride 90 meq/Potassium Chloride 15 meq/ Potassium Phosphate 18 mmol/ M agnesium Sulfate 8 meq/Calcium Gluconate 15 meq/ Multivitamins 10 ml/Chromium/ Copper/Manganese/ Seleni/Zn 0.5 ml/ Insulin Human Regular 15 unit/ Total Parenteral Nutrition/Amino Acids/Dextrose/ Fat Emulsion Intravenous 1,400 ml @ 58.333 mls/ hr TPN CONT IV Last administered on 07/17/19at 22:05; Start 07/17/19 at 22:00; Stop 07/18/19 at 21:59; Status DC Potassium Chloride 15 meq/ Bicarbonate Dialysis Soln w/ out KCl 5,007.5 ml @ 1,000 mls/ hr Q5H1M IV Last administered on 07/20/19at 18:14; Start 07/17/19 at 20:00; Stop 07/21/19 at 13:08; Status DC Potassium Chloride 15 meq/ Bicarbonate Dialysis Soln w/ out KCl 5,007.5 ml @ 1,000 mls/ hr Q5H1M IV Last administered on 07/20/19at 18:14; Start 07/17/19 at 20:00; Stop 07/21/19 at 13:08; Status DC Potassium Chloride 15 meq/ Bicarbonate Dialysis Soln w/ out KCl 5,007.5 ml @ 1,000 mls/ hr Q5H1M IV Last administered on 07/20/19at 18:14; Start 07/17/19 at 20:00; Stop 07/21/19 at 13:08; Status DC Iohexol (Omnipaque 240 Mg/ml) 30 ml 1X ONCE PO Last administered on 07/18/19at 11:30; Start 07/18/19 at 11:30; Stop 07/18/19 at 11:33; Status DC Info (CONTRAST GIVEN -- Rx MONITORING) 1 each PRN DAILY PRN MC SEE COMMENTS; Start 07/18/19 at 11:45; Stop 07/20/19 at 11:44; Status DC Sodium Chloride 90 meq/Potassium Chloride 15 meq/ Potassium Phosphate 18 mmol/ Magnesium Sulfate 8 meq/Calcium Gluconate 15 meq/ Multivitamins 10 ml/Chromium/ Copper/Manganese/ Seleni/Zn 0.5 ml/ Insulin Human Regular 15 unit/ Total Parenteral Nutrition/Amino Acids/Dextrose/ Fat Emulsion Intravenous 1,400 ml @ 58.333 mls/ hr TPN CONT IV Last administered on 07/18/19at 21:47; Start 07/18/19 at 22:00; Stop 07/19/19 at 21:59; Status DC Sodium Chloride 90 meq/Potassium Chloride 15 meq/ Potassium Phosphate 18 mmol/ Magnesium Sulfate 8 meq/Calcium Gluconate 15 meq/ Multivitamins 10 ml/Chromium/ Copper/Manganese/ Seleni/Zn 0.5 ml/ Insulin Human Regular 20 unit/ Total Parenteral Nutrition/Amino Acids/Dextrose/ Fat Emulsion Intravenous 1,400 ml @ 58.333 mls/ hr TPN CONT IV Last administered on 07/19/19at 21:36; Start 07/19/19 at 22:00; Stop 07/20/19 at 21:59; Status DC Alteplase, Recombinant (Cathflo For Central Catheter Clearance) 1 mg 1X ONCE INT CAT Last administered on 07/19/19at 20:03; Start 07/19/19 at 19:30; Stop 07/19/19 at 19:46; Status DC Alteplase, Recombinant (Cathflo For Central Catheter Clearance) 1 mg 1X ONCE INT CAT Last administered on 07/19/19at 22:05; Start 07/19/19 at 22:00; Stop 07/19/19 at 22:01; Status DC Sodium Chloride 90 meq/Potassium Chloride 15 meq/ Potassium Phosphate 18 mmol/ Magnesium Sulfate 8 meq/Calcium Gluconate 15 meq/ Multivitamins 10 ml/Chromium/ Copper/Manganese/ Seleni/Zn 0.5 ml/ Insulin Human Regular 20 unit/ Total Parenteral Nutrition/Amino Acids/Dextrose/ Fat Emulsion Intravenous 1,400 ml @ 58.333 mls/ hr TPN CONT IV Last administered on 07/20/19at 21:30; Start 07/20/19 at 22:00; Stop 07/21/19 at 21:59; Status DC Dexmedetomidine HCl 400 mcg/ Sodium Chloride 100 ml @ 0 mls/hr CONT PRN IV ANXIETY / AGITATION Last administered on 09/17/19at 12:57; Start 07/21/19 at 0 8:15; Stop 09/17/19 at 18:31; Status DC Sodium Chloride 500 ml @ 500 mls/hr 1X PRN PRN IV ELEVATED BP, SEE COMMENTS; Start 07/21/19 at 08:15 Atropine Sulfate (ATROPINE 0.5mg SYRINGE) 0.5 mg PRN Q5MIN PRN IV SEE COMMENTS; Start 07/21/19 at 08:15 Furosemide (Lasix) 20 mg 1X ONCE IVP Last administered on 07/21/19at 08:19; Start 07/21/19 at 08:15; Stop 07/21/19 at 08:16; Status DC Lidocaine HCl (Buffered Lidocaine 1%) 3 ml STK-MED ONCE .ROUTE ; Start 07/21/19 at 08:39; Stop 07/21/19 at 08:39; Status DC Lidocaine HCl (Buffered Lidocaine 1%) 6 ml 1X ONCE INJ Last administered on 07/21/19at 09:05; Start 07/21/19 at 09:00; Stop 07/21/19 at 09:06; Status DC Sodium Chloride 90 meq/Potassium Chloride 15 meq/ Potassium Phosphate 18 mmol/ Magnesium Sulfate 8 meq/Calcium Gluconate 15 meq/ Multivitamins 10 ml/Chromium/ Copper/Manganese/ Seleni/Zn 0.5 ml/ Insulin Human Regular 20 unit/ Total Parenteral Nutrition/Amino Acids/Dextrose/ Fat Emulsion Intravenous 1,400 ml @ 58.333 mls/ hr TPN CONT IV Last administered on 07/21/19at 22:45; Start 07/21/19 at 22:00; Stop 07/22/19 at 21:59; Status DC Sodium Chloride 1,000 ml @ 1,000 mls/hr Q1H PRN IV hypotension; Start 07/22/19 at 07:30; Stop 07/22/19 at 13:29; Status DC Albumin Human 200 ml @ 200 mls/hr 1X PRN PRN IV Hypotension Last administered on 07/22/19at 09:36; Start 07/22/19 at 07:30; Stop 07/22/19 at 13:29; Status DC Sodium Chloride (Normal Saline Flush) 10 ml 1X PRN PRN IV AP catheter pack; Start 07/22/19 at 07:30; Stop 07/22/19 at 21:29; Status DC Sodium Chloride (Normal Saline Flush) 10 ml 1X PRN PRN IV BUS ATTENDANT catheter pack; Start 07/22/19 at 07:30; Stop 07/23/19 at 07:29; Status DC Sodium Chloride 1,000 ml @ 400 mls/hr Q2H30M PRN IV PATENCY; Start 07/22/19 at 07:30; Stop 07/22/19 at 19:29; Status DC Info (PHARMACY MONITORING -- do not chart) 1 each PRN DAILY PRN MC SEE COMMENTS; Start 07/22/19 at 07:30; Stop 07/22/19 at 13:02; Status DC Info (PHARMACY MONITORING -- do not chart) 1 each PRN DAILY PRN MC SEE COMMENTS; Start 07/22/19 at 07:30; Stop 07/24/19 at 12:45; Status DC Sodium Chloride 90 meq/Potassium Chloride 15 meq/ Potassium Phosphate 10 mmol/ Magnesium Sulfate 8 meq/Calcium Gluconate 15 meq/ Multivitamins 10 ml/Chromium/ Copper/Manganese/ Seleni/Zn 0.5 ml/ Insulin Human Regular 25 unit/ Total Parenteral Nutrition/Amino Acids/Dextrose/ Fat Emulsion Intravenous 1,400 ml @ 58.333 mls/ hr TPN CONT IV Last administered on 07/22/19at 22:19; Start 07/22/19 at 22:00; Stop 07/23/19 at 21:59; Status DC Heparin Sodium (Porcine) (Heparin Sodium) 5,000 unit Q12HR SQ Last administered on 08/14/19at 08:59; Start 07/22/19 at 21:00; Stop 08/14/19 at 10:05; Status DC Ondansetron HCl (Zofran) 4 mg PRN Q6HRS PRN IV NAUSEA/VOMITING; Start 07/25/19 at 07:00; Stop 07/26/19 at 06:59; Status DC Fentanyl Citrate (Fentanyl 2ml Vial) 25 mcg PRN Q5MIN PRN IV MILD PAIN 1-3; Start 07/25/19 at 07:00; Stop 07/26/19 at 06:59; Status DC Fentanyl Citrate (Fentanyl 2ml Vial) 50 mcg PRN Q5MIN PRN IV MODERATE TO SEVERE PAIN; Start 07/25/19 at 07:00; Stop 07/26/19 at 06:59; Status DC Ringer's Solution 1,000 ml @ 30 mls/hr Q24H IV ; Start 07/25/19 at 07:00; Stop 07/25/19 at 18:59; Status DC Lidocaine HCl (Xylocaine-Mpf 1% 2ml Vial) 2 ml PRN 1X PRN ID PRIOR TO IV START; Start 07/25/19 at 07:00; Stop 07/26/19 at 06:59; Status DC Prochlorperazine Edisylate (Compazine) 5 mg PACU PRN PRN IV NAUSEA, MRX1; Start 07/25/19 at 07:00; Stop 07/26/19 at 06:59; Status DC Sodium Chloride 1,000 ml @ 1,000 mls/hr Q1H PRN IV hypotension; Start 07/23/19 at 09:10; Stop 07/23/19 at 15:09; Status DC Albumin Human 200 ml @ 200 mls/hr 1X PRN PRN IV Hypotension Last administered on 07/23/19at 10:10; Start 07/23/19 at 09:15; Stop 07/23/19 at 15:14; Status DC Sodium Chloride 1,000 ml @ 400 mls/hr Q2H30M PRN IV PATENCY; Start 07/23/19 at 09:10; Stop 07/23/19 at 21:09; Status DC Info (PHARMACY MONITORING -- do not chart) 1 each PRN DAILY PRN MC SEE COMMENTS; Start 07/23/19 at 09:15; Stop 07/24/19 at 12:45; Status DC Info (PHARMACY MONITORING -- do not chart) 1 each PRN DAILY PRN MC SEE COMMENTS; Start 07/23/19 at 09:15; Stop 07/24/19 at 12:45; Status DC Sodium Chloride 90 meq/Potassium Chloride 15 meq/ Potassium Phosphate 10 mmol/ Magnesium Sulfate 8 meq/Calcium Gluconate 15 meq/ Multivitamins 10 ml/Chromium/ Copper/Manganese/ Seleni/Zn 0.5 ml/ Insulin Human Regular 25 unit/ Total Parenteral Nutrition/Amino Acids/Dextrose/ Fat Emulsion Intravenous 1,400 ml @ 58.333 mls/ hr TPN CONT IV Last administered on 07/23/19at 22:10; Start 07/23/19 at 22:00; Stop 07/24/19 at 21:59; Status DC Magnesium Sulfate 50 ml @ 25 mls/hr PRN DAILY PRN IV for Mag < 1.7 on am labs Last administered on 10/06/19at 10:57; Start 07/24/19 at 09:15 Sodium Chloride 90 meq/Potassium Chloride 15 meq/ Potassium Phosphate 10 mmol/ Magnesium Sulfate 8 meq/Calcium Gluconate 15 meq/ Multivitamins 10 ml/Chromium/ Copper/Manganese/ Seleni/Zn 0.5 ml/ Insulin Human Regular 25 unit/ Total Parenteral Nutrition/Amino Acids/Dextrose/ Fat Emulsion Intravenous 1,400 ml @ 58.333 mls/ hr TPN CONT IV Last administered on 07/24/19at 21:20; Start 07/24/19 at 22:00; Stop 07/25/19 at 21:59; Status DC Sodium Chloride 1,000 ml @ 1,000 mls/hr Q1H PRN IV hypotension; Start 07/24/19 at 12:23; Stop 07/24/19 at 18:22; Status DC Albumin Human 200 ml @ 200 mls/hr 1X ONCE IV Last administered on 07/24/19at 13:34; Start 07/24/19 at 12:30; Stop 07/24/19 at 13:29; Status DC Diphenhydramine HCl (Benadryl) 25 mg 1X PRN PRN IV ITCHING; Start 07/24/19 at 12:30; Stop 07/25/19 at 12:29; Status DC Diphenhydramine HCl (Benadryl) 25 mg 1X PRN PRN IV ITCHING; Start 07/24/19 at 12:30; Stop 07/25/19 at 12:29; Status DC Info (PHARMACY MONITORING -- do not chart) 1 each PRN DAILY PRN MC SEE COMMENTS; Start 07/24/19 at 12:30; Status Cancel Bupivacaine HCl/ Epinephrine Bitart (Sensorcain-Epi 0.5%-1:[id number] Mpf) 30 ml STK-MED ONCE .ROUTE Last administered on 07/25/19at 11:44; Start 07/25/19 at 11:00; Stop 07/25/19 at 11:01; Status DC Cellulose (Surgicel Fibrillar 1x2) 1 each STK-MED ONCE .ROUTE ; Start 07/25/19 at 11:00; Stop 07/25/19 at 11:01; Status DC Sodium Chloride 90 meq/Potassium Chloride 15 meq/ Potassium Phosphate 10 mmol/ Magnesium Sulfate 12 meq/Calcium Gluconate 15 meq/ Multivitamins 10 ml/Chromium/ Copper/Manganese/ Seleni/Zn 0.5 ml/ Insulin Human Regular 25 unit/ Total Parenteral Nutrition/Amino Acids/Dextrose/ Fat Emulsion Intravenous 1,400 ml @ 58.333 mls/ hr TPN CONT IV Last administered on 07/25/19at 22:24; Start 07/25/19 at 22:00; Stop 07/26/19 at 21:59; Status DC Propofol 20 ml @ As Directed STK-MED ONCE IV ; Start 07/25/19 at 11:07; Stop 07/25/19 at 11:07; Status DC Cellulose (Surgicel Hemostat 4x8) 1 each STK-MED ONCE .ROUTE Last administered on 07/25/19at 11:44; Start 07/25/19 at 11:55; Stop 07/25/19 at 11:56; Status DC Sevoflurane (Ultane) 60 ml STK-MED ONCE IH ; Start 07/25/19 at 12:46; Stop 07/25/19 at 12:46; Status DC Sodium Chloride 1,000 ml @ 1,000 mls/hr Q1H PRN IV hypotension; Start 07/25/19 at 13:51; Stop 07/25/19 at 19:50; Status DC Albumin Human 200 ml @ 200 mls/hr 1X PRN PRN IV Hypotension Last administered on 07/25/19at 14:51; Start 07/25/19 at 14:00; Stop 07/25/19 at 19:59; Status DC Diphenhydramine HCl (Benadryl) 25 mg 1X PRN PRN IV ITCHING; Start 07/25/19 at 14:00; Stop 07/26/19 at 13:59; Status DC Diphenhydramine HCl (Benadryl) 25 mg 1X PRN PRN IV ITCHING; Start 07/25/19 at 14:00; Stop 07/26/19 at 13:59; Status DC Sodium Chloride 1,000 ml @ 400 mls/hr Q2H30M PRN IV PATENCY; Start 07/25/19 at 13:51; Stop 07/26/19 at 01:50; Status DC Info (PHARMACY MONITORING -- do not chart) 1 each PRN DAILY PRN MC SEE COMMENTS; Start 07/25/19 at 14:00; Stop 07/28/19 at 08:16; Status DC Heparin Sodium (Porcine) (Hep Lock Adult) 500 unit STK-MED ONCE IVP ; Start 07/26/19 at 09:29; Stop 07/26/19 at 09:30; Status DC Sodium Chloride 1,000 ml @ 1,000 mls/hr Q1H PRN IV hypotension; Start 07/26/19 at 10:43; Stop 07/26/19 at 16:42; Status DC Sodium Chloride 1,000 ml @ 400 mls/hr Q2H30M PRN IV PATENCY; Start 07/26/19 at 10:43; Stop 07/26/19 at 22:42; Status DC Info (PHARMACY MONITORING -- do not chart) 1 each PRN DAILY PRN MC SEE COMMENTS; Start 07/26/19 at 10:45; Status UNV Info (PHARMACY MONITORING -- do not chart) 1 each PRN DAILY PRN MC SEE COMMENTS; Start 07/26/19 at 10:45; Status UNV Sodium Chloride 90 meq/Potassium Chloride 15 meq/ Magnesium Sulfate 12 meq/Calci um Gluconate 15 meq/ Multivitamins 10 ml/Chromium/ Copper/Manganese/ Seleni/Zn 0.5 ml/ Insulin Human Regular 25 unit/ Total Parenteral Nutrition/Amino Acids/Dextrose/ Fat Emulsion Intravenous 1,400 ml @ 58.333 mls/ hr TPN CONT IV Last administered on 07/26/19at 22:13; Start 07/26/19 at 22:00; Stop 07/27/19 at 21:59; Status DC Sodium Chloride 1,000 ml @ 1,000 mls/hr Q1H PRN IV hypotension; Start 07/27/19 at 07:50; Stop 07/27/19 at 13:49; Status DC Albumin Human 200 ml @ 200 mls/hr 1X ONCE IV ; Start 07/27/19 at 08:00; Stop 07/27/19 at 08:53; Status DC Diphenhydramine HCl (Benadryl) 25 mg 1X PRN PRN IV ITCHING; Start 07/27/19 at 08:00; Stop 07/28/19 at 07:59; Status DC Diphenhydramine HCl (Benadryl) 25 mg 1X PRN PRN IV ITCHING; Start 07/27/19 at 08:00; Stop 07/28/19 at 07:59; Status DC Info (PHARMACY MONITORING -- do not chart) 1 each PRN DAILY PRN MC SEE COMMENTS; Start 07/27/19 at 08:00; Stop 07/28/19 at 08:16; Status DC Albumin Human 50 ml @ 50 mls/hr 1X ONCE IV ; Start 07/27/19 at 08:53; Stop 07/27/19 at 08:56; Status DC Albumin Human 200 ml @ 50 mls/hr PRN 1X PRN IV HYPOTENSION Last administered on 08/02/19at 11:54; Start 07/27/19 at 09:00; Stop 09/08/19 at 11:14; Status DC Meropenem 500 mg/ Sodium Chloride 50 ml @ 100 mls/hr Q12H IV Last administered on 08/16/19at 10:45; Start 07/27/19 at 10:00; Stop 08/16/19 at 12:37; Status DC Sodium Chloride 90 meq/Magnesium Sulfate 12 meq/ Calcium Gluconate 15 meq/ Multivitamins 10 ml/Chromium/ Copper/Manganese/ Seleni/Zn 0.5 ml/ Insulin Human Regular 25 unit/ Total Parenteral Nutrition/Amino Acids/Dextrose/ Fat Emulsion Intravenous 1,400 ml @ 58.333 mls/ hr TPN CONT IV Last administered on 07/27/19at 21:41; Start 07/27/19 at 22:00; Stop 07/28/19 at 21:59; Status DC Sodium Chloride 1,000 ml @ 1,000 mls/hr Q1H PRN IV hypotension; Start 07/28/19 at 07:58; Stop 07/28/19 at 13:57; Status DC Albumin Human 200 ml @ 200 mls/hr 1X PRN PRN IV Hypotension Last administered on 07/28/19at 09:30; Start 07/28/19 at 08:00; Stop 07/28/19 at 13:59; Status DC Sodium Chloride 1,000 ml @ 400 mls/hr Q2H30M PRN IV PATENCY; Start 07/28/19 at 07:58; Stop 07/28/19 at 19:57; Status DC Info (PHARMACY MONITORING -- do not chart) 1 each PRN DAILY PRN MC SEE COMMENTS; Start 07/28/19 at 08:00; Status Cancel Info (PHARMACY MONITORING -- do not chart) 1 each PRN DAILY PRN MC SEE COMMENTS; Start 07/28/19 at 08:15; Status UNV Sodium Chloride 90 meq/Potassium Phosphate 5 mmol/ Magnesium Sulfate 12 meq/Calcium Gluconate 15 meq/ Multivitamins 10 ml/Chromium/ Copper/Manganese/ Seleni/Zn 0.5 ml/ Insulin Human Regular 30 unit/ Total Parenteral Nutrition/Amino Acids/Dextrose/ Fat Emulsion Intravenous 1,400 ml @ 58.333 mls/ hr TPN CONT IV Last administered on 07/28/19at 22:08; Start 07/28/19 at 22:00; Stop 07/29/19 at 21:59; Status DC Linezolid/Dextrose 300 ml @ 300 mls/hr Q12HR IV Last administered on 08/08/19at 20:40; Start 07/29/19 at 11:00; Stop 08/09/19 at 08:10; Status DC Sodium Chloride 90 meq/Potassium Phosphate 15 mmol/ Magnesium Sulfate 12 meq/Calcium Gluconate 15 meq/ Multivitamins 10 ml/Chromium/ Copper/Manganese/ Seleni/Zn 0.5 ml/ Insulin Human Regular 30 unit/ Total Parenteral Nutrition/Amino Acids/Dextrose/ Fat Emulsion Intravenous 1,400 ml @ 58.333 mls/ hr TPN CONT IV Last administered on 07/29/19at 21:49; Start 07/29/19 at 22:00; Stop 07/30/19 at 21:59; Status DC Sodium Chloride 90 meq/Potassium Phosphate 15 mmol/ Magnesium Sulfate 12 meq/Calcium Gluconate 15 meq/ Multivitamins 10 ml/Chromium/ Copper/Manganese/ Seleni/Zn 0.5 ml/ Insulin Human Regular 40 unit/ Total Parenteral Nutrition/Amino Acids/Dextrose/ Fat Emulsion Intravenous 1,400 ml @ 58.333 mls/ hr TPN CONT IV Last administered on 07/30/19at 21:21; Start 07/30/19 at 22:00; Stop 07/31/19 at 21:59; Status DC Sodium Chloride 1,000 ml @ 1,000 mls/hr Q1H PRN IV hypotension; Start 07/30/19 at 13:26; Stop 07/30/19 at 19:25; Status DC Albumin Human 200 ml @ 200 mls/hr 1X PRN PRN IV Hypotension Last administered on 07/30/19at 15:00; Start 07/30/19 at 13:30; Stop 07/30/19 at 19:29; Status DC Sodium Chloride (Normal Saline Flush) 10 ml 1X PRN PRN IV AP catheter pack; Start 07/30/19 at 13:30; Stop 07/31/19 at 13:29; Status DC Sodium Chloride (Normal Saline Flush) 10 ml 1X PRN PRN IV BUS ATTENDANT catheter pack; Start 07/30/19 at 13:30; Stop 07/31/19 at 13:29; Status DC Sodium Chloride 1,000 ml @ 400 mls/hr Q2H30M PRN IV PATENCY; Start 07/30/19 at 13:26; Stop 07/31/19 at 01:25; Status DC Info (PHARMACY MONITORING -- do not chart) 1 each PRN DAILY PRN MC SEE COMMENTS; Start 07/30/19 at 13:30; Stop 07/30/19 at 13:33; Status DC Info (PHARMACY MONITORING -- do not chart) 1 each PRN DAILY PRN MC SEE COMMENTS; Start 07/30/19 at 13:30; Stop 07/30/19 at 13:34; Status DC Sodium Chloride 90 meq/Potassium Phosphate 19 mmol/ Magnesium Sulfate 12 meq/Calcium Gluconate 15 meq/ Multivitamins 10 ml/Chromium/ Copper/Manganese/ Seleni/Zn 0.5 ml/ Insulin Human Regular 40 unit/ Total Parenteral Nutrition/Amino Acids/Dextrose/ Fat Emulsion Intravenous 1,400 ml @ 58.333 mls/ hr TPN CONT IV Last administered on 07/31/19at 21:54; Start 07/31/19 at 22:00; Stop 08/01/19 at 21:59; Status DC Sodium Chloride 1,000 ml @ 1,000 mls/hr Q1H PRN IV hypotension; Start 08/01/19 at 09:35; Stop 08/01/19 at 15:34; Status DC Albumin Human 200 ml @ 200 mls/hr 1X PRN PRN IV Hypotension; Start 08/01/19 at 09:45; Stop 08/01/19 at 15:44; Status DC Diphenhydramine HCl (Benadryl) 25 mg 1X PRN PRN IV ITCHING; Start 08/01/19 at 09:45; Stop 08/02/19 at 09:44; Status DC Diphenhydramine HCl (Benadryl) 25 mg 1X PRN PRN IV ITCHING; Start 08/01/19 at 09:45; Stop 08/02/19 at 09:44; Status DC Sodium Chloride 1,000 ml @ 400 mls/hr Q2H30M PRN IV PATENCY; Start 08/01/19 at 09:35; Stop 08/01/19 at 21:34; Status DC Info (PHARMACY MONITORING -- do not chart) 1 each PRN DAILY PRN MC SEE COMMENTS; Start 08/01/19 at 09:45; Status Cancel Sodium Chloride 100 meq/Potassium Phosphate 19 mmol/ Magnesium Sulfate 12 meq/Calcium Gluconate 15 meq/ Multivitamins 10 ml/Chromium/ Copper/Manganese/ Seleni/Zn 0.5 ml/ Insulin Human Regular 40 unit/ Potassium Chloride 20 meq/ Total Parenteral Nutrition/Amino Acids/Dextrose/ Fat Emulsion Intravenous 1,400 ml @ 58.333 mls/ hr TPN CONT IV Last administered on 08/01/19at 22:02; Start 08/01/19 at 22:00; Stop 08/02/19 at 21:59; Status DC Furosemide (Lasix) 40 mg 1X ONCE IVP Last administered on 08/01/19at 14:39; Start 08/01/19 at 14:30; Stop 08/01/19 at 14:31; Status DC Metronidazole 100 ml @ 100 mls/hr Q8HRS IV Last administered on 08/09/19at 06:04; Start 08/02/19 at 10:00; Stop 08/09/19 at 08:10; Status DC Sodium Chloride 1,000 ml @ 1,000 mls/hr Q1H PRN IV hypotension; Start 08/02/19 at 08:00; Stop 08/02/19 at 13:59; Status DC Albumin Human 200 ml @ 200 mls/hr 1X PRN PRN IV Hypotension; Start 08/02/19 at 08:00; Stop 08/02/19 at 13:59; Status DC Sodium Chloride 1,000 ml @ 400 mls/hr Q2H30M PRN IV PATENCY; Start 08/02/19 at 08:00; Stop 08/02/19 at 19:59; Status DC Info (PHARMACY MONITORING -- do not chart) 1 each PRN DAILY PRN MC SEE CO MMENTS; Start 08/02/19 at 11:30; Status UNV Info (PHARMACY MONITORING -- do not chart) 1 each PRN DAILY PRN MC SEE COMMENTS; Start 08/02/19 at 11:30; Stop 08/04/19 at 12:13; Status DC Sodium Chloride 100 meq/Potassium Phosphate 19 mmol/ Magnesium Sulfate 12 meq/Calcium Gluconate 15 meq/ Multivitamins 10 ml/Chromium/ Copper/Manganese/ Seleni/Zn 0.5 ml/ Insulin Human Regular 40 unit/ Potassium Chloride 20 meq/ Total Parenteral Nutrition/Amino Acids/Dextrose/ Fat Emulsion Intravenous 1,400 ml @ 58.333 mls/ hr TPN CONT IV Last administered on 08/02/19at 21:52; Start 08/02/19 at 22:00; Stop 08/03/19 at 21:59; Status DC Sodium Chloride (Normal Saline Flush) 10 ml QSHIFT PRN IV AFTER MEDS AND BLOOD DRAWS; Start 08/02/19 at 15:00; Stop 08/30/19 at 11:27; Status DC Sodium Chloride (Normal Saline Flush) 10 ml PRN Q5MIN PRN IV AFTER MEDS AND BLOOD DRAWS; Start 08/02/19 at 15:00 Sodium Chloride (Normal Saline Flush) 20 ml PRN Q5MIN PRN IV AFTER MEDS AND BLOOD DRAWS; Start 08/02/19 at 15:00 Sodium Chloride 100 meq/Potassium Phosphate 19 mmol/ Magnesium Sulfate 12 meq/Calcium Gluconate 15 meq/ Multivitamins 10 ml/Chromium/ Copper/Manganese/ Seleni/Zn 0.5 ml/ Insulin Human Regular 40 unit/ Potassium Chloride 20 meq/ Total Parenteral Nutrition/Amino Acids/Dextrose/ Fat Emulsion Intravenous 1,400 ml @ 58.333 mls/ hr TPN CONT IV Last administered on 08/03/19at 21:20; Start 08/03/19 at 22:00; Stop 08/04/19 at 21:59; Status DC Lidocaine HCl (Buffered Lidocaine 1%) 3 ml STK-MED ONCE .ROUTE ; Start 08/03/19 at 13:16; Stop 08/03/19 at 13:16; Status DC Lidocaine HCl (Buffered Lidocaine 1%) 6 ml 1X ONCE INJ Last administered on 08/03/19at 13:45; Start 08/03/19 at 13:30; Stop 08/03/19 at 13:31; Status DC Albumin Human 100 ml @ 100 mls/hr 1X ONCE IV Last administered on 08/03/19at 15:41; Start 08/03/19 at 15:00; Stop 08/03/19 at 15:59; Status DC Albumin Human 50 ml @ 50 mls/hr 1X ONCE IV Last administered on 08/03/19at 15:00; Start 08/03/19 at 15:00; Stop 08/03/19 at 15:59; Status DC Info (PHARMACY MONITORING -- do not chart) 1 each PRN DAILY PRN MC SEE COMMENTS; Start 08/04/19 at 11:30; Status Cancel Info (PHARMACY MONITORING -- do not chart) 1 each PRN DAILY PRN MC SEE COMMENTS; Start 08/04/19 at 11:30; Status UNV Sodium Chloride 100 meq/Potassium Phosphate 10 mmol/ Magnesium Sulfate 12 meq/Calcium Gluconate 15 meq/ Multivitamins 10 ml/Chromium/ Copper/Manganese/ Seleni/Zn 0.5 ml/ Insulin Human Regular 35 unit/ Potassium Chloride 20 meq/ Total Parenteral Nutrition/Amino Acids/Dextrose/ Fat Emulsion Intravenous 1,400 ml @ 58.333 mls/ hr TPN CONT IV Last administered on 08/04/19at 22:10; Start 08/04/19 at 22:00; Stop 08/05/19 at 21:59; Status DC Sodium Chloride 100 meq/Potassium Phosphate 5 mmol/ Magnesium Sulfate 12 meq/Calcium Gluconate 15 meq/ Multivitamins 10 ml/Chromium/ Copper/Manganese/ Seleni/Zn 0.5 ml/ Insulin Human Regular 35 unit/ Potassium Chloride 20 meq/ Total Parenteral Nutrition/Amino Acids/Dextrose/ Fat Emulsion Intravenous 1,400 ml @ 58.333 mls/ hr TPN CONT IV Last administered on 08/05/19at 22:59; Start 08/05/19 at 22:00; Stop 08/06/19 at 21:59; Status DC Sodium Chloride 1,000 ml @ 1,000 mls/hr Q1H PRN IV hypotension; Start 08/06/19 at 08:27; Stop 08/06/19 at 14:26; Status DC Albumin Human 200 ml @ 200 mls/hr 1X PRN PRN IV Hypotension Last administered on 08/06/19at 09:18; Start 08/06/19 at 08:30; Stop 08/06/19 at 14:29; Status DC Sodium Chloride 1,000 ml @ 400 mls/hr Q2H30M PRN IV PATENCY; Start 08/06/19 at 08:27; Stop 08/06/19 at 20:26; Status DC Info (PHARMACY MONITORING -- do not chart) 1 each PRN DAILY PRN MC SEE COMMENTS; Start 08/06/19 at 08:30; Status Cancel Info (PHARMACY MONITORING -- do not chart) 1 each PRN DAILY PRN MC SEE COMMENTS; Start 08/06/19 at 08:30; Stop 08/14/19 at 13:10; Status DC Sodium Chloride 100 meq/Potassium Chloride 40 meq/ Magnesium Sulfate 15 meq/Calcium Gluconate 15 meq/ Multivitamins 10 ml/Chromium/ Copper/Manganese/ Seleni/Zn 0.5 ml/ Insulin Human Regular 35 unit/ Total Parenteral Nutrition/Amino Acids/Dextrose/ Fat Emulsion Intravenous 1,400 ml @ 58.333 mls/ hr TPN CONT IV Last administered on 08/06/19at 22:00; Start 08/06/19 at 22:00; Stop 08/07/19 at 21:59; Status DC Potassium Chloride/Water 100 ml @ 100 mls/hr 1X ONCE IV Last administered on 08/06/19at 17:28; Start 08/06/19 at 14:45; Stop 08/06/19 at 15:44; Status DC Sodium Chloride 100 meq/Potassium Chloride 40 meq/ Magnesium Sulfate 15 meq/Calcium Gluconate 15 meq/ Multivitamins 10 ml/Chromium/ Copper/Manganese/ Seleni/Zn 0.5 ml/ Insulin Human Regular 35 unit/ Total Parenteral Nutrition/Amino Acids/Dextrose/ Fat Emulsion Intravenous 1,400 ml @ 58.333 mls/ hr TPN CONT IV Last administered on 08/07/19at 22:46; Start 08/07/19 at 22:00; Stop 08/08/19 at 21:59; Status DC Sodium Chloride 100 meq/Potassium Chloride 40 meq/ Magnesium Sulfate 20 meq/C alcium Gluconate 15 meq/ Multivitamins 10 ml/Chromium/ Copper/Manganese/ Seleni/Zn 0.5 ml/ Insulin Human Regular 35 unit/ Total Parenteral Nutrition/Amino Acids/Dextrose/ Fat Emulsion Intravenous 1,400 ml @ 58.333 mls/ hr TPN CONT IV Last administered on 08/08/19at 22:31; Start 08/08/19 at 22:00; Stop 08/09/19 at 21:59; Status DC Fentanyl Citrate (Fentanyl 2ml Vial) 50 mcg PRN Q2HR PRN IVP PAIN Last administered on 08/15/19at 13:32; Start 08/08/19 at 21:00; Stop 08/16/19 at 12:53; Status DC Fentanyl Citrate (Fentanyl 2ml Vial) 25 mcg PRN Q2HR PRN IVP PAIN; Start 08/08/19 at 21:00; Stop 08/16/19 at 12:54; Status DC Enoxaparin Sodium (Lovenox 100mg Syringe) 100 mg Q12HR SQ ; Start 08/09/19 at 21:00; Status UNV Amino Acids/ Glycerin/ Electrolytes 1,000 ml @ 75 mls/hr [id number] IV ; Start 08/08/19 at 21:15; Status UNV Sodium Chloride 1,000 ml @ 1,000 mls/hr Q1H PRN IV hypotension; Start 08/09/19 at 07:56; Stop 08/09/19 at 13:55; Status DC Albumin Human 200 ml @ 200 mls/hr 1X PRN PRN IV Hypotension Last administered on 08/09/19at 08:40; Start 08/09/19 at 08:00; Stop 08/09/19 at 13:59; Status DC Sodium Chloride 1,000 ml @ 400 mls/hr Q2H30M PRN IV PATENCY; Start 08/09/19 at 07:56; Stop 08/09/19 at 19:55; Status DC Info (PHARMACY MONITORING -- do not chart) 1 each PRN DAILY PRN MC SEE COMMENTS; Start 08/09/19 at 08:00; Status UNV Info (PHARMACY MONITORING -- do not chart) 1 each PRN DAILY PRN MC SEE COMMENTS; Start 08/09/19 at 08:00; Status UNV Daptomycin 430 mg/ Sodium Chloride 50 ml @ 100 mls/hr Q24H IV Last administered on 08/09/19at 12:35; Start 08/09/19 at 09:00; Stop 08/09/19 at 12:49; Status DC Sodium Chloride 100 meq/Potassium Chloride 40 meq/ Magnesium Sulfate 20 meq/Calcium Gluconate 15 meq/ Multivitamins 10 ml/Chromium/ Copper/Manganese/ Se dinorah/Zn 0.5 ml/ Insulin Human Regular 35 unit/ Total Parenteral Nutrition/Amino Acids/Dextrose/ Fat Emulsion Intravenous 1,400 ml @ 58.333 mls/ hr TPN CONT IV Last administered on 08/09/19at 21:26; Start 08/09/19 at 22:00; Stop 08/10/19 at 21:59; Status DC Daptomycin 430 mg/ Sodium Chloride 50 ml @ 100 mls/hr Q48H IV ; Start 08/11/19 at 09:00; Stop 08/10/19 at 11:55; Status DC Sodium Chloride 100 meq/Potassium Chloride 40 meq/ Magnesium Sulfate 20 meq/Calcium Gluconate 15 meq/ Multivitamins 10 ml/Chromium/ Copper/Manganese/ Seleni/Zn 0.5 ml/ Insulin Human Regular 35 unit/ Total Parenteral Nutrition/Amino Acids/Dextrose/ Fat Emulsion Intravenous 1,400 ml @ 58.333 mls/ hr TPN CONT IV Last administered on 08/10/19at 22:27; Start 08/10/19 at 22:00; Stop 08/11/19 at 21:59; Status DC Daptomycin 430 mg/ Sodium Chloride 50 ml @ 100 mls/hr Q24H IV Last administered on 08/12/19at 15:07; Start 08/10/19 at 13:00; Stop 08/13/19 at 13:15; Status DC Sodium Chloride 100 meq/Potassium Chloride 40 meq/ Magnesium Sulfate 20 meq/Calcium Gluconate 10 meq/ Multivitamins 10 ml/Chromium/ Copper/Manganese/ Seleni/Zn 0.5 ml/ Insulin Human Regular 35 unit/ Total Parenteral Nutrition/Amino Acids/Dextrose/ Fat Emulsion Intravenous 1,400 ml @ 58.333 mls/ hr TPN CONT IV Last administered on 08/12/19at 00:06; Start 08/11/19 at 22:00; Stop 08/12/19 at 21:59; Status DC Alteplase, Recombinant (Cathflo For Central Catheter Clearance) 1 mg 1X ONCE INT CAT Last administered on 08/12/19at 11:44; Start 08/12/19 at 10:45; Stop 08/12/19 at 10:46; Status DC Ondansetron HCl (Zofran) 4 mg PRN Q6HRS PRN IV NAUSEA/VOMITING; Start 08/15/19 at 07:00; Stop 08/16/19 at 06:59; Status DC Fentanyl Citrate (Fentanyl 2ml Vial) 25 mcg PRN Q5MIN PRN IV MILD PAIN 1-3; Start 08/15/19 at 07:00; Stop 08/16/19 at 06:59; Status DC Fentanyl Citrate (Fentanyl 2ml Vial) 50 mcg PRN Q5MIN PRN IV MODERATE TO SEVERE PAIN Last administered on 08/15/19at 10:17; Start 08/15/19 at 07:00; Stop 08/16/19 at 06:59; Status DC Ringer's Solution 1,000 ml @ 30 mls/hr Q24H IV ; Start 08/15/19 at 07:00; Stop 08/15/19 at 18:59; Status DC Lidocaine HCl (Xylocaine-Mpf 1% 2ml Vial) 2 ml PRN 1X PRN ID PRIOR TO IV START; Start 08/15/19 at 07:00; Stop 08/16/19 at 06:59; Status DC Prochlorperazine Edisylate (Compazine) 5 mg PACU PRN PRN IV NAUSEA, MRX1; Start 08/15/19 at 07:00; Stop 08/16/19 at 06:59; Status DC Sodium Acetate 50 meq/Potassium Acetate 55 meq/ Magnesium Sulfate 20 meq/Calcium Gluconate 10 meq/ Multivitamins 10 ml/Chromium/ Copper/Manganese/ Seleni/Zn 0.5 ml/ Insulin Human Regular 35 unit/ Total Parenteral Nutrition/Amino Acids/Dextrose/ Fat Emulsion Intravenous 1,400 ml @ 58.333 mls/ hr TPN CONT IV ; Start 08/12/19 at 22:00; Stop 08/12/19 at 14:15; Status DC Sodium Acetate 50 meq/Potassium Acetate 55 meq/ Magnesium Sulfate 20 meq/Calcium Gluconate 10 meq/ Multivitamins 10 ml/Chromium/ Copper/Manganese/ Seleni/Zn 0.5 ml/ Insulin Human Regular 35 unit/ Total Parenteral Nutrition/Amino Acids/Dextrose/ Fat Emulsion Intravenous 1,800 ml @ 75 mls/hr TPN CONT IV Last administered on 08/12/19at 22:38; Start 08/12/19 at 22:00; Stop 08/13/19 at 21:59; Status DC Sodium Chloride 1,000 ml @ 1,000 mls/hr Q1H PRN IV hypotension; Start 08/12/19 at 15:31; Stop 08/12/19 at 21:30; Status DC Diphenhydramine HCl (Benadryl) 25 mg 1X PRN PRN IV ITCHING; Start 08/12/19 at 15:45; Stop 08/13/19 at 15:44; Status DC Diphenhydramine HCl (Benadryl) 25 mg 1X PRN PRN IV ITCHING; Start 08/12/19 at 15:45; Stop 08/13/19 at 15:44; Status DC Sodium Chloride 1,000 ml @ 400 mls/hr Q2H30M PRN IV PATENCY; Start 08/12/19 at 15:31; Stop 08/13/19 at 03:30; Status DC Info (PHARMACY MONITORING -- do not chart) 1 each PRN DAILY PRN MC SEE COMMENTS; Start 08/12/19 at 15:45; Stop 09/13/19 at 14:14; Status DC Sodium Acetate 50 meq/Potassium Acetate 55 meq/ Magnesium Sulfate 20 meq/Calcium Gluconate 10 meq/ Multivitamins 10 ml/Chromium/ Copper/Manganese/ Seleni/Zn 0.5 ml/ Insulin Human Regular 35 unit/ Total Parenteral Nutrition/Amino Acids/Dextrose/ Fat Emulsion Intravenous 1,800 ml @ 75 mls/hr TPN CONT IV Last administered on 08/13/19at 22:03; Start 08/13/19 at 22:00; Stop 08/14/19 at 21:59; Status DC Daptomycin 430 mg/ Sodium Chloride 50 ml @ 100 mls/hr Q24H IV Last administered on 08/18/19at 13:00; Start 08/13/19 at 13:00; Stop 08/18/19 at 20:58; Status DC Heparin Sodium (Porcine) 1000 unit/Sodium Chloride 1,001 ml @ 1,001 mls/hr 1X ONCE IRR ; Start 08/15/19 at 06:00; Stop 08/15/19 at 06:59; Status DC Potassium Acetate 55 meq/Magnesium Sulfate 20 meq/ Calcium Gluconate 10 meq/ Multivitamins 10 ml/Chromium/ Copper/Manganese/ Seleni/Zn 0.5 ml/ Insulin Human Regular 35 unit/ Total Parenteral Nutrition/Amino Acids/Dextrose/ Fat Emulsion Intravenous 1,920 ml @ 80 mls/hr TPN CONT IV Last administered on 08/14/19at 22:10; Start 08/14/19 at 22:00; Stop 08/15/19 at 21:59; Status DC Dexamethasone Sodium Phosphate (Decadron) 4 mg STK-MED ONCE .ROUTE ; Start 08/15/19 at 10:56; Stop 08/15/19 at 10:57; Status DC Ondansetron HCl (Zofran) 4 mg STK-MED ONCE .ROUTE ; Start 08/15/19 at 10:56; Stop 08/15/19 at 10:57; Status DC Rocuronium Acton (Zemuron) 50 mg STK-MED ONCE .ROUTE ; Start 08/15/19 at 10:56; Stop 08/15/19 at 10:57; Status DC Fentanyl Citrate (Fentanyl 2ml Vial) 100 mcg STK-MED ONCE .ROUTE ; Start 08/15/19 at 10:56; Stop 08/15/19 at 10:57; Status DC Bupivacaine HCl/ Epinephrine Bitart (Sensorcain-Epi 0.5%-1:961090 Mpf) 30 ml STK-MED ONCE .ROUTE Last administered on 08/15/19at 12:01; Start 08/15/19 at 10:58; Stop 08/15/19 at 10:58; Status DC Cellulose (Surgicel Hemostat 2x14) 1 each STK-MED ONCE .ROUTE ; Start 08/15/19 at 10:58; Stop 08/15/19 at 10:59; Status DC Iohexol (Omnipaque 300 Mg/ml) 50 ml STK-MED ONCE .ROUTE ; Start 08/15/19 at 10:58; Stop 08/15/19 at 10:59; Status DC Cellulose (Surgicel Hemostat 4x8) 1 each STK-MED ONCE .ROUTE ; Start 08/15/19 at 10:58; Stop 08/15/19 at 10:59; Status DC Bisacodyl (Dulcolax Supp) 10 mg STK-MED ONCE .ROUTE ; Start 08/15/19 at 10:59; Stop 08/15/19 at 10:59; Status DC Heparin Sodium (Porcine) 1000 unit/Sodium Chloride 1,001 ml @ 1,001 mls/hr 1X ONCE IRR ; Start 08/15/19 at 12:00; Stop 08/15/19 at 12:59; Status DC Propofol 20 ml @ As Directed STK-MED ONCE IV ; Start 08/15/19 at 11:05; Stop 08/15/19 at 11:05; Status DC Sevoflurane (Ultane) 90 ml STK-MED ONCE IH ; Start 08/15/19 at 11:05; Stop 08/15/19 at 11:05; Status DC Sevoflurane (Ultane) 60 ml STK-MED ONCE IH ; Start 08/15/19 at 12:26; Stop 08/15/19 at 12:27; Status DC Propofol 20 ml @ As Directed STK-MED ONCE IV ; Start 08/15/19 at 12:26; Stop 08/15/19 at 12:27; Status DC Phenylephrine HCl (PHENYLEPHRINE in 0.9% NACL PF) 1 mg STK-MED ONCE IV ; Start 08/15/19 at 12:34; Stop 08/15/19 at 12:34; Status DC Heparin Sodium (Porcine) (Heparin Sodium) 5,000 unit Q12HR SQ Last administered on 08/24/19at 20:57; Start 08/15/19 at 21:00; Stop 08/25/19 at 09:59; Status DC Sodium Chloride (Normal Saline Flush) 3 ml QSHIFT PRN IV AFTER MEDS AND BLOOD DRAWS; Start 08/15/19 at 13:45; Status Cancel Naloxone HCl (Narcan) 0.4 mg PRN Q2MIN PRN IV SEE INSTRUCTIONS Last administered on 09/24/19at 15:15; Start 08/15/19 at 13:45; Stop 10/19/19 at 16:00; Status DC Sodium Chloride 1,000 ml @ 25 mls/hr Q24H IV Last administered on 09/13/19at 13:37; Start 08/15/19 at 13:37; Stop 09/16/19 at 13:09; Status DC Naloxone HCl (Narcan) 0.4 mg PRN Q2MIN PRN IV SEE INSTRUCTIONS; Start 08/15/19 at 14:30; Status UNV Sodium Chloride 1,000 ml @ 25 mls/hr Q24H IV ; Start 08/15/19 at 14:30; Status UNV Hydromorphone HCl 30 ml @ 0 mls/hr CONT PRN PRN IV PER PROTOCOL Last administered on 08/20/19at 16:08; Start 08/15/19 at 14:30; Stop 08/22/19 at 08:55; Status DC Potassium Acetate 55 meq/Magnesium Sulfate 20 meq/ Calcium Gluconate 10 meq/ Multivitamins 10 ml/Chromium/ Copper/Manganese/ Seleni/Zn 0.5 ml/ Insulin Human Regular 35 unit/ Total Parenteral Nutrition/Amino Acids/Dextrose/ Fat Emulsion Intravenous 1,920 ml @ 80 mls/hr TPN CONT IV Last administered on 08/15/19at 22:01; Start 08/15/19 at 22:00; Stop 08/16/19 at 21:59; Status DC Bumetanide (Bumex) 2 mg [id number] IV Last administered on 08/19/19at 13:50; Start 08/16/19 at 14:00; Stop 08/20/19 at 14:10; Status DC Meropenem 1 gm/ Sodium Chloride 100 ml @ 200 mls/hr Q8HRS IV Last administered on 09/09/19at 05:53; Start 08/16/19 at 14:00; Stop 09/09/19 at 09:31; Status DC Potassium Acetate 55 meq/Magnesium Sulfate 20 meq/ Calcium Gluconate 10 meq/ Multivitamins 10 ml/Chromium/ Copper/Manganese/ Seleni/Zn 0.5 ml/ Insulin Human Regular 35 unit/ Total Parenteral Nutrition/Amino Acids/Dextrose/ Fat Emulsion Intravenous 1,920 ml @ 80 mls/hr TPN CONT IV Last administered on 08/16/19at 22:02; Start 08/16/19 at 22:00; Stop 08/17/19 at 21:59; Status DC Hydromorphone HCl (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) 12 mg STK-MED ONCE IV ; Start 08/15/19 at 14:35; Stop 08/16/19 at 13:53; Status DC Artificial Tears (Artificial Tears) 1 drop PRN Q15MIN PRN OU DRY EYE Last admi nistered on 10/11/19at 21:17; Start 08/17/19 at 05:30 Hydromorphone HCl (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) 12 mg STK-MED ONCE IV ; Start 08/16/19 at 12:05; Stop 08/17/19 at 09:15; Status DC Potassium Acetate 65 meq/Magnesium Sulfate 20 meq/ Calcium Gluconate 10 meq/ Multivitamins 10 ml/Chromium/ Copper/Manganese/ Seleni/Zn 0.5 ml/ Insulin Human Regular 30 unit/ Total Parenteral Nutrition/Amino Acids/Dextrose/ Fat Emulsion Intravenous 1,920 ml @ 80 mls/hr TPN CONT IV Last administered on 08/17/19at 22:22; Start 08/17/19 at 22:00; Stop 08/18/19 at 21:59; Status DC Cyclobenzaprine HCl (Flexeril) 10 mg PRN Q6HRS PRN PO MUSCLE SPASMS Last admin istered on 10/28/19at 08:31; Start 08/18/19 at 10:45 Potassium Acetate 55 meq/Magnesium Sulfate 20 meq/ Calcium Gluconate 10 meq/ Multivitamins 10 ml/Chromium/ Copper/Manganese/ Seleni/Zn 0.5 ml/ Insulin Human Regular 30 unit/ Total Parenteral Nutrition/Amino Acids/Dextrose/ Fat Emulsion Intravenous 1,920 ml @ 80 mls/hr TPN CONT IV Last administered on 08/19/19at 01:00; Start 08/18/19 at 22:00; Stop 08/19/19 at 21:59; Status DC Magnesium Sulfate 50 ml @ 25 mls/hr 1X ONCE IV Last administered on 08/18/19at 17:18; Start 08/18/19 at 12:45; Stop 08/18/19 at 14:44; Status DC Potassium Chloride/Water 100 ml @ 100 mls/hr 1X ONCE IV Last administered on 08/19/19at 11:27; Start 08/19/19 at 12:00; Stop 08/19/19 at 12:59; Status DC Hydromorphone HCl (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) 12 mg STK-MED ONCE IV ; Start 08/17/19 at 10:50; Stop 08/19/19 at 11:02; Status DC Hydromorphone HCl (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) 12 mg STK-MED ONCE IV ; Start 08/18/19 at 13:47; Stop 08/19/19 at 11:03; Status DC Potassium Acetate 30 meq/Magnesium Sulfate 20 meq/ Calcium Gluconate 10 meq/ Multivitamins 10 ml/Chromium/ Copper/Manganese/ Seleni/Zn 0.5 ml/ Insulin Human Regular 30 unit/ Potassium Chloride 30 meq/ Total Parenteral Nutrition/Amino Acids/Dextrose/ Fat Emulsion Intravenous 1,920 ml @ 80 mls/hr TPN CONT IV Last administered on 08/19/19at 22:34; Start 08/19/19 at 22:00; Stop 08/20/19 at 21:59; Status DC Potassium Chloride/Water 100 ml @ 100 mls/hr Q1H IV Last administered on 08/20/19at 13:05; Start 08/20/19 at 07:00; Stop 08/20/19 at 10:59; Status DC Magnesium Sulfate 50 ml @ 25 mls/hr 1X ONCE IV Last administered on 08/20/19at 10:34; Start 08/20/19 at 10:30; Stop 08/20/19 at 12:29; Status DC Potassium Chloride 75 meq/ Magnesium Sulfate 20 meq/Calcium Gluconate 10 meq/ Multivitamins 10 ml/Chromium/ Copper/Manganese/ Seleni/Zn 0.5 ml/ Insulin Human Regular 30 unit/ Total Parenteral Nutrition/Amino Acids/Dextrose/ Fat Emulsion I ntravenous 1,920 ml @ 80 mls/hr TPN CONT IV Last administered on 08/20/19at 21:51; Start 08/20/19 at 22:00; Stop 08/21/19 at 22:00; Status DC Potassium Chloride 75 meq/ Magnesium Sulfate 20 meq/Calcium Gluconate 10 meq/ Multivitamins 10 ml/Chromium/ Copper/Manganese/ Seleni/Zn 0.5 ml/ Insulin Human Regular 25 unit/ Total Parenteral Nutrition/Amino Acids/Dextrose/ Fat Emulsion Intravenous 1,920 ml @ 80 mls/hr TPN CONT IV Last administered on 08/21/19at 22:04; Start 08/21/19 at 22:00; Stop 08/22/19 at 21:59; Status DC Hydromorphone HCl (Dilaudid) 0.4 mg PRN Q4HRS PRN IVP PAIN Last administered on 08/22/19at 10:57; Start 08/22/19 at 09:00; Stop 08/22/19 at 18:59; Status DC Micafungin Sodium 100 mg/Dextrose 100 ml @ 100 mls/hr Q24H IV Last administered on 09/13/19at 12:17; Start 08/22/19 at 11:00; Stop 09/14/19 at 09:59; Status DC Daptomycin 485 mg/ Sodium Chloride 50 ml @ 100 mls/hr Q24H IV Last administered on 08/29/19at 13:10; Start 08/22/19 at 11:00; Stop 08/30/19 at 07:44; Status DC Potassium Chloride 75 meq/ Magnesium Sulfate 15 meq/Calcium Gluconate 8 meq/ Multivitamins 10 ml/Chromium/ Copper/Manganese/ Seleni/Zn 0.5 ml/ Insulin Human Regular 25 unit/ Total Parenteral Nutrition/Amino Acids/Dextrose/ Fat Emulsion Intravenous 1,920 ml @ 80 mls/hr TPN CONT IV Last administered on 08/22/19at 23:08; Start 08/22/19 at 22:00; Stop 08/23/19 at 21:59; Status DC Haloperidol Lactate (Haldol Inj) 3 mg 1X ONCE IVP Last administered on 08/22/19at 14:37; Start 08/22/19 at 14:30; Stop 08/22/19 at 14:31; Status DC Hydromorphone HCl (Dilaudid) 1 mg PRN Q4HRS PRN IVP PAIN Last administered on 09/05/19at 06:25; Start 08/22/19 at 19:00; Stop 09/05/19 at 17:10; Status DC Potassium Chloride 75 meq/ Magnesium Sulfate 15 meq/Calcium Gluconate 8 meq/ Multivitamins 10 ml/Chromium/ Copper/Manganese/ Seleni/Zn 0.5 ml/ Insulin Human Regular 20 unit/ Total Parenteral Nutrition/Amino Acids/Dextrose/ Fat Emulsion Intravenous 1,920 ml @ 80 mls/hr TPN CONT IV Last administered on 08/23/19at 22:10; Start 08/23/19 at 22:00; Stop 08/24/19 at 21:59; Status DC Lidocaine HCl (Buffered Lidocaine 1%) 3 ml STK-MED ONCE .ROUTE ; Start 08/24/19 at 11:31; Stop 08/24/19 at 11:31; Status DC Lidocaine HCl (Buffered Lidocaine 1%) 3 ml STK-MED ONCE .ROUTE ; Start 08/24/19 at 12:28; Stop 08/24/19 at 12:29; Status DC Lidocaine HCl (Buffered Lidocaine 1%) 6 ml 1X ONCE INJ Last administered on 08/24/19at 12:53; Start 08/24/19 at 12:45; Stop 08/24/19 at 12:46; Status DC Potassium Chloride 75 meq/ Magnesium Sulfate 15 meq/Calcium Gluconate 8 meq/ Multivitamins 10 ml/Chromium/ Copper/Manganese/ Seleni/Zn 0.5 ml/ Insulin Human Regular 20 unit/ Total Parenteral Nutrition/Amino Acids/Dextrose/ Fat Emulsion Intravenous 1,920 ml @ 80 mls/hr TPN CONT IV Last administered on 08/24/19at 22:00; Start 08/24/19 at 22:00; Stop 08/25/19 at 21:59; Status DC Potassium Chloride 75 meq/ Magnesium Sulfate 15 meq/Calcium Gluconate 8 meq/ Multivitamins 10 ml/Chromium/ Copper/Manganese/ Seleni/Zn 0.5 ml/ Insulin Human Regular 15 unit/ Total Parenteral Nutrition/Amino Acids/Dextrose/ Fat Emulsion Intravenous 1,920 ml @ 80 mls/hr TPN CONT IV Last administered on 08/25/19at 22:28; Start 08/25/19 at 22:00; Stop 08/26/19 at 21:59; Status DC Vecuronium Acton (Norcuron Bolus) 6 mg PRN Q6HRS PRN IV VENT ASYNCHRONY; Start 08/25/19 at 19:15; Stop 08/25/19 at 19:35; Status DC Bumetanide (Bumex) 2 mg 1X ONCE IV Last administered on 08/25/19at 22:09; Start 08/25/19 at 19:45; Stop 08/25/19 at 19:46; Status DC Lidocaine HCl (Buffered Lidocaine 1%) 3 ml STK-MED ONCE .ROUTE ; Start 08/26/19 at 07:59; Stop 08/26/19 at 07:59; Status DC Midazolam HCl (Versed) 5 mg STK-MED ONCE .ROUTE ; Start 08/26/19 at 08:36; Stop 08/26/19 at 08:36; Status DC Fentanyl Citrate (Fentanyl 5ml Vial) 250 mcg STK-MED ONCE .ROUTE ; Start 08/26/19 at 08:36; Stop 08/26/19 at 08:37; Status DC Lidocaine HCl (Buffered Lidocaine 1%) 3 ml 1X ONCE IJ Last administered on 08/26/19at 09:30; Start 08/26/19 at 09:15; Stop 08/26/19 at 09:16; Status DC Midazolam HCl (Versed) 5 mg 1X ONCE IV Last administered on 08/26/19at 09:30; Start 08/26/19 at 09:15; Stop 08/26/19 at 09:16; Status DC Fentanyl Citrate (Fentanyl 5ml Vial) 250 mcg 1X ONCE IV Last administered on 08/26/19at 09:30; Start 08/26/19 at 09:15; Stop 08/26/19 at 09:16; Status DC Bumetanide (Bumex) 2 mg DAILY IV Last administered on 09/05/19at 08:07; Start 08/26/19 at 10:00; Stop 09/05/19 at 17:15; Status DC Potassium Chloride 75 meq/ Magnesium Sulfate 15 meq/ Multivitamins 10 ml /Chromium/ Copper/Manganese/ Seleni/Zn 0.5 ml/ Insulin Human Regular 15 unit/ Total Parenteral Nutrition/Amino Acids/Dextrose/ Fat Emulsion Intravenous 1,920 ml @ 80 mls/hr TPN CONT IV Last administered on 08/26/19at 21:59; Start 08/26/19 at 22:00; Stop 08/27/19 at 21:59; Status DC Metoclopramide HCl (Reglan Vial) 10 mg PRN Q3HRS PRN IVP NAUSEA/VOMITING-3rd choice Last administered on 09/01/19at 04:25; Start 08/27/19 at 16:45 Potassium Chloride 75 meq/ Magnesium Sulfate 15 meq/ Multivitamins 10 ml/Chromium/ Copper/Manganese/ Seleni/Zn 0.5 ml/ Insulin Human Regular 15 unit/ Total Parenteral Nutrition/Amino Acids/Dextrose/ Fat Emulsion Intravenous 1,920 ml @ 80 mls/hr TPN CONT IV Last administered on 08/27/19at 22:41; Start 08/27/19 at 22:00; Stop 08/28/19 at 21:59; Status DC Magnesium Sulfate 50 ml @ 25 mls/hr 1X ONCE IV Last administered on 08/28/19at 10:44; Start 08/28/19 at 09:00; Stop 08/28/19 at 10:59; Status DC Potassium Chloride/Water 100 ml @ 100 mls/hr 1X ONCE IV Last administered on 08/28/19at 09:37; Start 08/28/19 at 09:00; Stop 08/28/19 at 09:59; Status DC Duloxetine HCl (Cymbalta) 30 mg DAILY PO Last administered on 08/29/19at 09:48; Start 08/28/19 at 14:00; Stop 08/31/19 at 10:25; Status DC Potassium Chloride 80 meq/ Magnesium Sulfate 20 meq/ Multivitamins 10 ml/Chromium/ Copper/Manganese/ Seleni/Zn 0.5 ml/ Insulin Human Regular 15 unit/ Total Parenteral Nutrition/Amino Acids/Dextrose/ Fat Emulsion Intravenous 1,920 ml @ 80 mls/hr TPN CONT IV Last administered on 08/28/19at 21:42; Start 02/06 at 22:00; Stop 08/29/19 at 21:59; Status DC Potassium Chloride 80 meq/ Magnesium Sulfate 20 meq/ Multivitamins 10 ml/Delivery Table Feeder mium/ Copper/Manganese/ Seleni/Zn 0.5 ml/ Insulin Human Regular 15 unit/ Total Parenteral Nutrition/Amino Acids/Dextrose/ Fat Emulsion Intravenous 1,920 ml @ 80 mls/hr TPN CONT IV Last administered on 08/29/19at 22:20; Start 08/29/19 at 22:00; Stop 08/30/19 at 21:59; Status DC Lidocaine HCl (Buffered Lidocaine 1%) 3 ml Culture Machine-MED ONCE .ROUTE ; Start 08/30/19 at 09:54; Stop 08/30/19 at 09:55; Status DC Hydromorphone HCl (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) 12 mg STK-MED ONCE IV ; Start 08/19/19 at 15:50; Stop 08/30/19 at 11:24; Status DC Potassium Chloride 80 meq/ Magnesium Sulfate 20 meq/ Multivitamins 10 ml/Chromium/ Copper/Manganese/ Seleni/Zn 0.5 ml/ Insulin Human Regular 15 unit/ Total Parenteral Nutrition/Amino Acids/Dextrose/ Fat Emulsion Intravenous 1,920 ml @ 80 mls/hr TPN CONT IV Last administered on 08/30/19at 21:40; Start 08/30/19 at 22:00; Stop 08/31/19 at 21:59; Status DC Lidocaine HCl (Buffered Lidocaine 1%) 6 ml 1X ONCE INJ Last administered on 08/30/19at 14:15; Start 08/30/19 at 14:15; Stop 08/30/19 at 14:16; Status DC Potassium Chloride 80 meq/ Magnesium Sulfate 20 meq/ Multivitamins 10 ml/Chromium/ Copper/Manganese/ Seleni/Zn 1 ml/ Insulin Human Regular 15 unit/ Total Parenteral Nutrition/Amino Acids/Dextrose/ Fat Emulsion Intravenous 1,920 ml @ 80 mls/hr TPN CONT IV Last administered on 08/31/19at 22:04; Start 08/31/19 at 22:00; Stop 09/01/19 at 21:59; Status DC Potassium Chloride/Water 100 ml @ 100 mls/hr 1X ONCE IV Last administered on 09/01/19at 11:34; Start 09/01/19 at 11:00; Stop 09/01/19 at 11:59; Status DC Potassium Chloride 90 meq/ Magnesium Sulfate 20 meq/ Multivitamins 10 ml/Chromium/ Copper/Manganese/ Seleni/Zn 1 ml/ Insulin Human Regular 15 unit/ Total Parenteral Nutrition/Amino Acids/Dextrose/ Fat Emulsion Intravenous 1,920 ml @ 80 mls/hr TPN CONT IV Last administered on 09/01/19at 22:57; Start 09/01/19 at 22:00; Stop 09/02/19 at 21:59; Status DC Potassium Chloride 90 meq/ Magnesium Sulfate 20 meq/ Multivitamins 10 ml/Chromium/ Copper/Manganese/ Seleni/Zn 1 ml/ Insulin Human Regular 15 unit/ Total Parenteral Nutrition/Amino Acids/Dextrose/ Fat Emulsion Intravenous 1,920 ml @ 80 mls/hr TPN CONT IV Last administered on 09/02/19at 22:48; Start 09/02/19 at 22:00; Stop 09/03/19 at 21:59; Status DC Potassium Chloride 90 meq/ Magnesium Sulfate 20 meq/ Multivitamins 10 ml/Chromium/ Copper/Manganese/ Seleni/Zn 1 ml/ Insulin Human Regular 15 unit/ Total Parenteral Nutrition/Amino Acids/Dextrose/ Fat Emulsion Intravenous 1,890 ml @ 78.75 mls/ hr TPN CONT IV Last administered on 09/03/19at 22:15; Start 09/03/19 at 22:00; Stop 09/04/19 at 21:59; Status DC Linezolid/Dextrose 300 ml @ 300 mls/hr Q12HR IV Last administered on 09/06/19at 21:08; Start 09/04/19 at 09:00; Stop 09/07/19 at 08:11; Status DC Daptomycin 450 mg/ Sodium Chloride 50 ml @ 100 mls/hr Q24H IV Last administered on 09/07/19at 09:25; Start 09/04/19 at 09:00; Stop 09/08/19 at 08:30; Status DC Potassium Chloride 90 meq/ Magnesium Sulfate 20 meq/ Multivitamins 10 ml/Chromium/ Copper/Manganese/ Seleni/Zn 1 ml/ Insulin Human Regular 15 unit/ Total Parenteral Nutrition/Amino Acids/Dextrose/ Fat Emulsion Intravenous 1,890 ml @ 78.75 mls/ hr TPN CONT IV Last administered on 09/04/19at 21:34; Start 09/04/19 at 22:00; Stop 09/05/19 at 21:59; Status DC Lorazepam (Ativan Inj) 2 mg STK-MED ONCE .ROUTE ; Start 09/04/19 at 14:58; Stop 09/04/19 at 14:58; Status DC Metoprolol Tartrate (Lopressor Vial) 5 mg 1X ONCE IVP Last administered on 09/04/19at 15:31; Start 09/04/19 at 15:15; Stop 09/04/19 at 15:16; Status DC Lorazepam (Ativan Inj) 2 mg 1X ONCE IVP Last administered on 09/04/19at 15:30; Start 09/04/19 at 15:15; Stop 09/04/19 at 15:16; Status DC Enoxaparin Sodium (Lovenox 40mg Syringe) 40 mg Q24H SQ Last administered on 09/23/19at 17:44; Start 09/04/19 at 17:00; Stop 09/25/19 at 06:50; Status DC Lorazepam (Ativan Inj) 1 mg PRN Q4HRS PRN IVP ANXIETY / AGITATION MILD-MOD Last administered on 09/18/19at 15:55; Start 09/04/19 at 19:15; Stop 09/20/19 at 11:45; Status DC Lorazepam (Ativan Inj) 2 mg PRN Q4HRS PRN IVP ANXIETY / AGITATION SEVERE Last administered on 09/19/19at 07:55; Start 09/04/19 at 19:15; Stop 09/20/19 at 11:45; Status DC Fentanyl Citrate (Fentanyl 2ml Vial) 50 mcg PRN Q4HRS PRN IVP SEVERE PAIN Last administered on 10/01/19at 05:15; Start 09/05/19 at 13:15; Stop 10/02/19 at 09:29; Status DC Fentanyl Citrate (Fentanyl 2ml Vial) 25 mcg PRN Q4HRS PRN IVP MODERATE PAIN Last administered on 10/01/19at 00:27; Start 09/05/19 at 13:15; Stop 10/02/19 at 09:30; Status DC Potassium Chloride 90 meq/ Magnesium Sulfate 20 meq/ Multivitamins 10 ml/Chromium/ Copper/Manganese/ Seleni/Zn 1 ml/ Insulin Human Regular 15 unit/ Total Parenteral Nutrition/Amino Acids/Dextrose/ Fat Emulsion Intravenous 1,890 ml @ 78.75 mls/ hr TPN CONT IV Last administered on 09/05/19at 22:18; Start 09/05/19 at 22:00; Stop 09/06/19 at 21:59; Status DC Furosemide (Lasix) 40 mg 1X ONCE IVP Last administered on 09/05/19at 21:51; Start 09/05/19 at 21:45; Stop 09/05/19 at 21:48; Status DC Albumin Human 100 ml @ 100 mls/hr 1X PRN PRN IV SEE COMMENTS; Start 09/06/19 at 01:30 Furosemide (Lasix) 40 mg [id number] IVP Last administered on 09/21/19at 08:04; Start 09/06/19 at 14:00; Stop 09/21/19 at 13:07; Status DC Potassium Chloride 90 meq/ Magnesium Sulfate 20 meq/ Multivitamins 10 ml/Chromium/ Copper/Manganese/ Seleni/Zn 1 ml/ Insulin Human Regular 15 unit/ Total Parenteral Nutrition/Amino Acids/Dextrose/ Fat Emulsion Intravenous 1,800 ml @ 75 mls/hr TPN CONT IV Last administered on 09/06/19at 22:31; Start 09/06/19 at 22:00; Stop 09/07/19 at 21:59; Status DC Potassium Chloride 90 meq/ Magnesium Sulfate 20 meq/ Multivitamins 10 ml/Chromium/ Copper/Manganese/ Seleni/Zn 1 ml/ Insulin Human Regular 15 unit/ Total Parenteral Nutrition/Amino Acids/Dextrose/ Fat Emulsion Intravenous 1,800 ml @ 75 mls/hr TPN CONT IV Last administered on 09/07/19at 22:28; Start 09/07/19 at 22:00; Stop 09/08/19 at 21:59; Status DC Potassium Chloride 110 meq/ Magnesium Sulfate 20 meq/ Multivitamins 10 ml/Chromium/ Copper/Manganese/ Seleni/Zn 1 ml/ Insulin Human Regular 15 unit/ Total Parenteral Nutrition/Amino Acids/Dextrose/ Fat Emulsion Intravenous 1,800 ml @ 75 mls/hr TPN CONT IV Last administered on 09/08/19at 22:01; Start 09/08/19 at 22:00; Stop 09/09/19 at 21:59; Status DC Saliva Substitute (Biotene Moisturizing Mouth) 2 spray PRN Q15MIN PRN PO DRY MOUTH; Start 09/08/19 at 11:00 Potassium Chloride 110 meq/ Magnesium Sulfate 20 meq/ Multivitamins 10 ml/Chromium/ Copper/Manganese/ Seleni/Zn 1 ml/ Insulin Human Regular 15 unit/ Total Parenteral Nutrition/Amino Acids/Dextrose/ Fat Emulsion Intravenous 1,800 ml @ 75 mls/hr TPN CONT IV Last administered on 09/09/19at 22:21; Start 09/09/19 at 22:00; Stop 09/10/19 at 21:59; Status DC Potassium Chloride 110 meq/ Magnesium Sulfate 20 meq/ Multivitamins 10 ml/Chromium/ Copper/Manganese/ Seleni/Zn 1 ml/ Insulin Human Regular 15 unit/ Total Parenteral Nutrition/Amino Acids/Dextrose/ Fat Emulsion Intravenous 1,800 ml @ 75 mls/hr TPN CONT IV Last administered on 09/10/19at 22:04; Start 09/10/19 at 22:00; Stop 09/11/19 at 21:59; Status DC Potassium Chloride 110 meq/ Magnesium Sulfate 20 meq/ Multivitamins 10 ml/Chromium/ Copper/Manganese/ Seleni/Zn 1 ml/ Insulin Human Regular 15 unit/ Total Parenteral Nutrition/Amino Acids/Dextrose/ Fat Emulsion Intravenous 1,800 ml @ 75 mls/hr TPN CONT IV Last administered on 09/11/19at 22:48; Start 09/11/19 at 22:00; Stop 09/12/19 at 21:59; Status DC Potassium Chloride 70 meq/ Magnesium Sulfate 20 meq/ Multivitamins 10 ml/Chromium/ Copper/Manganese/ Seleni/Zn 1 ml/ Insulin Human Regular 15 unit/ Total Parenteral Nutrition/Amino Acids/Dextrose/ Fat Emulsion Intravenous 1,800 ml @ 75 mls/hr TPN CONT IV Last administered on 09/12/19at 21:39; Start 09/12/19 at 22:00; Stop 09/13/19 at 21:59; Status DC Meropenem 500 mg/ Sodium Chloride 50 ml @ 100 mls/hr Q6HRS IV Last administered on 09/14/19at 06:02; Start 09/12/19 at 18:00; Stop 09/14/19 at 09:59; Status DC Barium Sulfate (Varibar Thin Liquid Apple) 148 gm 1X ONCE PO ; Start 09/13/19 at 11:45; Stop 09/13/19 at 11:49; Status DC Potassium Chloride 70 meq/ Magnesium Sulfate 20 meq/ Multivitamins 10 ml/Chromium/ Copper/Manganese/ Seleni/Zn 1 ml/ Insulin Human Regular 15 unit/ Total Parenteral Nutrition/Amino Acids/Dextrose/ Fat Emulsion Intravenous 1,800 ml @ 75 mls/hr TPN CONT IV Last administered on 09/13/19at 22:27; Start 09/13/19 at 22:00; Stop 09/14/19 at 21:59; Status DC Piperacillin Sod/ Tazobactam Sod 3.375 gm/Sodium Chloride 50 ml @ 100 mls/hr Q6HRS IV Last administered on 09/22/19at 06:10; Start 09/14/19 at 12:00; Stop 09/22/19 at 07:26; Status DC Potassium Chloride 70 meq/ Magnesium Sulfate 20 meq/ Multivitamins 10 ml/Chromium/ Copper/Manganese/ Seleni/Zn 1 ml/ Insulin Human Regular 15 unit/ Total Parenteral Nutrition/Amino Acids/Dextrose/ Fat Emulsion Intravenous 1,800 ml @ 75 mls/hr TPN CONT IV Last administered on 09/14/19at 22:03; Start 09/14/19 at 22:00; Stop 09/15/19 at 21:59; Status DC Potassium Chloride 70 meq/ Magnesium Sulfate 20 meq/ Multivitamins 10 ml/Chromium/ Copper/Manganese/ Seleni/Zn 1 ml/ Insulin Human Regular 15 unit/ Total Parenteral Nutrition/Amino Acids/Dextrose/ Fat Emulsion Intravenous 1,800 ml @ 75 mls/hr TPN CONT IV Last administered on 09/15/19at 22:33; Start 09/15/19 at 22:00; Stop 09/16/19 at 21:59; Status DC Potassium Chloride 70 meq/ Magnesium Sulfate 20 meq/ Multivitamins 10 ml/Chromium/ Copper/Manganese/ Seleni/Zn 1 ml/ Insulin Human Regular 15 unit/ Total Parenteral Nutrition/Amino Acids/Dextrose/ Fat Emulsion Intravenous 1,800 ml @ 75 mls/hr TPN CONT IV Last administered on 09/16/19at 23:13; Start 09/16/19 at 22:00; Stop 09/17/19 at 21:59; Status DC Potassium Chloride 80 meq/ Magnesium Sulfate 20 meq/ Multivitamins 10 ml/Chromium/ Copper/Manganese/ Seleni/Zn 1 ml/ Insulin Human Regular 15 unit/ Total Parenteral Nutrition/Amino Acids/Dextrose/ Fat Emulsion Intravenous 1,800 ml @ 75 mls/hr TPN CONT IV Last administered on 09/17/19at 22:30; Start 09/17/19 at 22:00; Stop 09/18/19 at 21:59; Status DC Potassium Chloride 80 meq/ Magnesium Sulfate 20 meq/ Multivitamins 10 ml/Chromium/ Copper/Manganese/ Seleni/Zn 1 ml/ Insulin Human Regular 15 unit/ Total Parenteral Nutrition/Amino Acids/Dextrose/ Fat Emulsion Intravenous 1,800 ml @ 75 mls/hr TPN CONT IV Last administered on 09/18/19at 21:54; Start 09/18/19 at 22:00; Stop 09/19/19 at 21:59; Status DC Potassium Chloride/Water 100 ml @ 100 mls/hr 1X ONCE IV Last administered on 09/19/19at 10:15; Start 09/19/19 at 10:00; Stop 09/19/19 at 10:59; Status DC Potassium Chloride 90 meq/ Magnesium Sulfate 20 meq/ Multivitamins 10 ml/Chromium/ Copper/Manganese/ Seleni/Zn 1 ml/ Insulin Human Regular 20 unit/ Total Parenteral Nutrition/Amino Acids/Dextrose/ Fat Emulsion Intravenous 1,800 ml @ 75 mls/hr TPN CONT IV Last administered on 09/19/19at 22:28; Start 09/19/19 at 22:00; Stop 09/20/19 at 21:59; Status DC Potassium Chloride 90 meq/ Magnesium Sulfate 20 meq/ Multivitamins 10 ml/Chromium/ Copper/Manganese/ Seleni/Zn 1 ml/ Insulin Human Regular 20 unit/ Total Parenteral Nutrition/Amino Acids/Dextrose/ Fat Emulsion Intravenous 1,800 ml @ 75 mls/hr TPN CONT IV Last administered on 09/20/19at 22:08; Start 09/20/19 at 22:00; Stop 09/21/19 at 21:59; Status DC Lorazepam (Ativan Inj) 0.25 mg PRN Q4HRS PRN IVP ANXIETY / AGITATION Last administered on 10/15/19at 13:37; Start 09/21/19 at 07:30 Potassium Chloride 90 meq/ Magnesium Sulfate 20 meq/ Multivitamins 10 ml/Chromium/ Copper/Manganese/ Seleni/Zn 1 ml/ Insulin Human Regular 20 unit/ Total Parenteral Nutrition/Amino Acids/Dextrose/ Fat Emulsion Intravenous 1,800 ml @ 75 mls/hr TPN CONT IV Last administered on 09/21/19at 23:13; Start 09/21/19 at 22:00; Stop 09/22/19 at 21:59; Status DC Furosemide (Lasix) 40 mg DAILY IVP Last administered on 09/23/19at 11:14; Start 09/21/19 at 13:30; Stop 09/25/19 at 09:12; Status DC Fluoxetine HCl (PROzac) 20 mg QHS PEG Last administered on 10/27/19at 22:36; Start 09/22/19 at 21:00 Fentanyl (Duragesic 50mcg/ Hr Patch) 1 patch Q72H TD Last administered on 09/22/19at 21:22; Start 09/22/19 at 21:00; Stop 10/01/19 at 12:00; Status DC Potassium Chloride 40 meq/ Potassium Acetate 60 meq/Magnesium Sulfate 10 meq/ Multivitamins 10 ml/Chromium/ Copper/Manganese/ Seleni/Zn 1 ml/ Insulin Human Regular 20 unit/ Total Parenteral Nutrition/Amino Acids/Dextrose/ Fat Emulsion Intravenous 1,800 ml @ 75 mls/hr TPN CONT IV Last administered on 09/23/19at 00:03; Start 09/22/19 at 22:00; Stop 09/23/19 at 21:59; Status DC Potassium Acetate 80 meq/Magnesium Sulfate 5 meq/ Multivitamins 10 ml/Chromium/ Copper/Manganese/ Seleni/Zn 1 ml/ Insulin Human Regular 20 unit/ Total Parenteral Nutrition/Amino Acids/Dextrose/ Fat Emulsion Intravenous 1,920 ml @ 80 mls/hr TPN CONT IV Last administered on 09/23/19at 21:59; Start 09/23/19 at 22:00; Stop 09/24/19 at 21:59; Status DC Potassium Acetate 60 meq/Magnesium Sulfate 5 meq/ Multivitamins 10 ml/Chromium/ Copper/Manganese/ Seleni/Zn 1 ml/ Insulin Human Regular 30 unit/ Total Parenteral Nutrition/Amino Acids/Dextrose/ Fat Emulsion Intravenous 1,920 ml @ 80 mls/hr TPN CONT IV Last administered on 09/24/19at 21:54; Start 09/24/19 at 22:00; Stop 09/25/19 at 21:59; Status DC Norepinephrine Bitartrate 8 mg/ Dextrose 258 ml @ 13.332 mls/ hr CONT PRN IV PER PROTOCOL Last administered on 10/20/19at 09:09; Start 09/25/19 at 06:30 Albumin Human 500 ml @ 125 mls/hr 1X ONCE IV Last administered on 09/25/19at 08:10; Start 09/25/19 at 08:15; Stop 09/25/19 at 12:14; Status DC Potassium Acetate 40 meq/Magnesium Sulfate 5 meq/ Multivitamins 10 ml/Chromium/ Copper/Manganese/ Seleni/Zn 1 ml/ Insulin Human Regular 30 unit/ Total Parenteral Nutrition/Amino Acids/Dextrose/ Fat Emulsion Intravenous 1,920 ml @ 80 mls/hr TPN CONT IV Last administered on 09/25/19at 22:23; Start 09/25/19 at 22:00; Stop 09/26/19 at 21:59; Status DC Meropenem 1 gm/ Sodium Chloride 100 ml @ 200 mls/hr Q8HRS IV ; Start 09/25/19 at 14:00; Status Cancel Meropenem 1 gm/ Sodium Chloride 100 ml @ 200 mls/hr Q8HRS IV Last administered on 09/25/19at 11:04; Start 09/25/19 at 10:00; Stop 09/25/19 at 13:00; Status DC Meropenem 1 gm/ Sodium Chloride 100 ml @ 200 mls/hr Q12HR IV Last administered on 10/13/19at 08:27; Start 09/25/19 at 21:00; Stop 10/13/19 at 08:56; Status DC Sodium Chloride 1,000 ml @ 1,000 mls/hr 1X ONCE IV Last administered on 09/25/19at 11:06; Start 09/25/19 at 10:45; Stop 09/25/19 at 11:44; Status DC Micafungin Sodium 100 mg/Dextrose 100 ml @ 100 mls/hr Q24H IV Last administered on 10/12/19at 12:34; Start 09/25/19 at 11:00; Stop 10/13/19 at 08:56; Status DC Daptomycin 410 mg/ Sodium Chloride 50 ml @ 100 mls/hr Q24H IV Last administered on 09/27/19at 13:33; Start 09/25/19 at 14:00; Stop 09/28/19 at 08:30; Status DC Midazolam HCl (Versed) 2 mg STK-MED ONCE .ROUTE ; Start 09/25/19 at 14:47; Stop 09/25/19 at 14:48; Status DC Fentanyl Citrate (Fentanyl 2ml Vial) 100 mcg STK-MED ONCE .ROUTE ; Start 09/25/19 at 14:47; Stop 09/25/19 at 14:48; Status DC Flumazenil (Romazicon) 0.5 mg STK-MED ONCE IV ; Start 09/25/19 at 14:48; Stop 09/25/19 at 14:48; Status DC Naloxone HCl (Narcan) 0.4 mg STK-MED ONCE .ROUTE ; Start 09/25/19 at 14:48; Stop 09/25/19 at 14:48; Status DC Lidocaine HCl (Lidocaine 1% 20ml Vial) 20 ml STK-MED ONCE .ROUTE ; Start 09/25/19 at 14:48; Stop 09/25/19 at 14:48; Status DC Midazolam HCl (Versed) 2 mg 1X ONCE IV Last administered on 09/25/19at 15:28; Start 09/25/19 at 15:00; Stop 09/25/19 at 15:01; Status DC Fentanyl Citrate (Fentanyl 2ml Vial) 100 mcg 1X ONCE IV Last administered on 09/25/19at 15:28; Start 09/25/19 at 15:00; Stop 09/25/19 at 15:01; Status DC Lidocaine HCl (Lidocaine 1% 20ml Vial) 20 ml 1X ONCE INJ Last administered on 09/25/19at 15:30; Start 09/25/19 at 15:00; Stop 09/25/19 at 15:01; Status DC Sodium Chloride 1,000 ml @ 100 mls/hr Q10H IV Last administered on 10/04/19at 07:30; Start 09/25/19 at 20:00; Stop 10/04/19 at 11:26; Status DC Sodium Bicarbonate (Sodium Bicarb Adult 8.4% Syr) 50 meq 1X ONCE IV Last administered on 09/25/19at 21:47; Start 09/25/19 at 22:00; Stop 09/25/19 at 22:01; Status DC Potassium Acetate 40 meq/Magnesium Sulfate 5 meq/ Multivitamins 10 ml/Chromium/ Copper/Manganese/ Seleni/Zn 1 ml/ Insulin Human Regular 30 unit/ Total Parenteral Nutrition/Amino Acids/Dextrose/ Fat Emulsion Intravenous 1,920 ml @ 80 mls/hr TPN CONT IV Last administered on 09/26/19at 22:28; Start 09/26/19 at 22:00; Stop 09/27/19 at 21:59; Status DC Sodium Chloride 500 ml @ 500 mls/hr 1X ONCE IV Last administered on 09/27/19at 06:39; Start 09/27/19 at 06:45; Stop 09/27/19 at 07:44; Status DC Potassium Acetate 40 meq/Magnesium Sulfate 5 meq/ Multivitamins 10 ml/Chromium/ Copper/Manganese/ Seleni/Zn 1 ml/ Insulin Human Regular 30 unit/ Total Parenteral Nutrition/Amino Acids/Dextrose/ Fat Emulsion Intravenous 1,920 ml @ 80 mls/hr TPN CONT IV Last administered on 09/27/19at 22:03; Start 09/27/19 at 22:00; Stop 09/28/19 at 21:59; Status DC Metoprolol Tartrate (Lopressor Vial) 5 mg PRN Q6HRS PRN IVP HYPERTENSION Last administered on 10/28/19at 08:32; Start 09/28/19 at 09:00 Potassium Acetate 40 meq/Magnesium Sulfate 5 meq/ Multivitamins 10 ml/Chromium/ Copper/Manganese/ Seleni/Zn 1 ml/ Insulin Human Regular 30 unit/ Total Parenteral Nutrition/Amino Acids/Dextrose/ Fat Emulsion Intravenous 1,920 ml @ 80 mls/hr TPN CONT IV Last administered on 09/28/19at 21:26; Start 09/28/19 at 22:00; Stop 09/29/19 at 21:59; Status DC Potassium Acetate 40 meq/Magnesium Sulfate 5 meq/ Multivitamins 10 ml/Chromium/ Copper/Manganese/ Seleni/Zn 1 ml/ Insulin Human Regular 30 unit/ Total Parenteral Nutrition/Amino Acids/Dextrose/ Fat Emulsion Intravenous 1,920 ml @ 80 mls/hr TPN CONT IV Last administered on 09/29/19at 23:23; Start 09/29/19 at 22:00; Stop 09/30/19 at 21:59; Status DC Potassium Acetate 40 meq/Magnesium Sulfate 5 meq/ Multivitamins 10 ml/Chromium/ Copper/Manganese/ Seleni/Zn 1 ml/ Insulin Human Regular 30 unit/ Total Parenteral Nutrition/Amino Acids/Dextrose/ Fat Emulsion Intravenous 1,920 ml @ 80 mls/hr TPN CONT IV Last administered on 09/30/19at 21:35; Start 09/30/19 at 22:00; Stop 10/01/19 at 21:59; Status DC Furosemide (Lasix) 20 mg 1X ONCE IVP Last administered on 10/01/19at 06:26; Start 10/01/19 at 06:15; Stop 10/01/19 at 06:16; Status DC Methylprednisolone Sodium Succinate (SOLU-Medrol 125MG VIAL) 125 mg 1X ONCE IV Last administered on 10/01/19at 06:26; Start 10/01/19 at 06:15; Stop 10/01/19 at 06:16; Status DC Albuterol/ Ipratropium (Duoneb) 3 ml Q4HRS NEB Last administered on 10/28/19at 07:27; Start 10/01/19 at 08:00 Fentanyl Citrate 30 ml @ 0 mls/hr CONT PRN IV SEE PROTOCOL Last administered on 10/22/19at 08:03; Start 10/01/19 at 06:00; Stop 10/22/19 at 12:42; Status DC Propofol 100 ml @ 0 mls/hr CONT PRN IV SEE PROTOCOL Last administered on 10/08/19at 23:50; Start 10/01/19 at 06:00 Fentanyl Citrate (Fentanyl 2ml Vial) 25 mcg PRN Q1HR PRN IV SEE COMMENTS; Start 10/01/19 at 06:00 Fentanyl Citrate (Fentanyl 2ml Vial) 50 mcg PRN Q1HR PRN IV SEE COMMENTS; Start 10/01/19 at 06:00 Chlorhexidine Gluconate (Peridex) 15 ml BID MM ; Start 10/01/19 at 09:00; Stop 10/01/19 at 07:58; Status DC Potassium Acetate 40 meq/Magnesium Sulfate 5 meq/ Multivitamins 10 ml/Chromium/ Copper/Manganese/ Seleni/Zn 1 ml/ Insulin Human Regular 30 unit/ Total Parenteral Nutrition/Amino Acids/Dextrose/ Fat Emulsion Intravenous 1,920 ml @ 80 mls/hr TPN CONT IV Last administered on 10/01/19at 21:19; Start 10/01/19 at 22:00; Stop 10/02/19 at 21:59; Status DC Acetylcysteine (Mucomyst 20% Resp Treatment) 600 mg BID NEB Last administered on 10/07/19at 09:33; Start 10/01/19 at 21:00; Stop 10/07/19 at 10:39; Status DC Magnesium Sulfate 100 ml @ 25 mls/hr 1X ONCE IV Last administered on 10/01/19at 15:48; Start 10/01/19 at 15:45; Stop 10/01/19 at 19:44; Status DC Potassium Acetate 40 meq/Magnesium Sulfate 5 meq/ Multivitamins 10 ml/Chromium/ Copper/Manganese/ Seleni/Zn 1 ml/ Insulin Human Regular 30 unit/ Total Parenteral Nutrition/Amino Acids/Dextrose/ Fat Emulsion Intravenous 1,920 ml @ 80 mls/hr TPN CONT IV Last administered on 10/02/19at 21:35; Start 10/02/19 at 22:00; Stop 10/03/19 at 21:59; Status DC Potassium Chloride/Water 100 ml @ 100 mls/hr Q1H IV Last administered on 10/03/19at 08:31; Start 10/03/19 at 07:00; Stop 10/03/19 at 08:59; Status DC Potassium Acetate 40 meq/Magnesium Sulfate 5 meq/ Multivitamins 10 ml/Chromium/ Copper/Manganese/ Seleni/Zn 1 ml/ Insulin Human Regular 30 unit/ Total Parenteral Nutrition/Amino Acids/Dextrose/ Fat Emulsion Intravenous 1,920 ml @ 80 mls/hr TPN CONT IV Last administered on 10/03/19at 21:54; Start 10/03/19 at 22:00; Stop 10/04/19 at 19:34; Status DC Lidocaine HCl (Buffered Lidocaine 1%) 3 ml STK-MED ONCE .ROUTE ; Start 10/03/19 at 12:14; Stop 10/03/19 at 12:14; Status DC Lidocaine HCl (Buffered Lidocaine 1%) 3 ml 1X ONCE IJ Last administered on 10/03/19at 13:11; Start 10/03/19 at 13:00; Stop 10/03/19 at 13:01; Status DC Magnesium Sulfate 50 ml @ 25 mls/hr 1X ONCE IV ; Start 10/04/19 at 08:15; Stop 10/04/19 at 10:14; Status DC Potassium Acetate 40 meq/Magnesium Sulfate 10 meq/ Multivitamins 10 ml/Chromium/ Copper/Manganese/ Seleni/Zn 1 ml/ Insulin Human Regular 20 unit/ Total Parent eral Nutrition/Amino Acids/Dextrose/ Fat Emulsion Intravenous 1,920 ml @ 80 mls/hr TPN CONT IV Last administered on 10/04/19at 21:32; Start 10/04/19 at 22:00; Stop 10/05/19 at 21:59; Status DC Potassium Chloride/Water 100 ml @ 100 mls/hr Q1H IV Last administered on 10/05/19at 09:12; Start 10/05/19 at 08:00; Stop 10/05/19 at 09:59; Status DC Alteplase, Recombinant (Cathflo For Central Catheter Clearance) 4 mg 1X ONCE INT CAT ; Start 10/05/19 at 09:15; Stop 10/05/19 at 09:16; Status UNV Alteplase, Recombinant (Cathflo For Central Catheter Clearance) 4 mg 1X ONCE INT CAT ; Start 10/05/19 at 09:15; Stop 10/05/19 at 09:16; Status UNV Alteplase, Recombinant (Cathflo For Central Catheter Clearance) 4 mg 1X ONCE INT CAT ; Start 10/05/19 at 09:15; Stop 10/05/19 at 09:16; Status UNV Alteplase, Recombinant 4 mg/ Sodium Chloride 20 ml @ 20 mls/hr 1X ONCE IV Last administered on 10/05/19at 10:10; Start 10/05/19 at 10:00; Stop 10/05/19 at 10:59; Status DC Alteplase, Recombinant 4 mg/ Sodium Chloride 20 ml @ 20 mls/hr 1X ONCE IV Last administered on 10/05/19at 10:09; Start 10/05/19 at 10:00; Stop 10/05/19 at 10:59; Status DC Alteplase, Recombinant 4 mg/ Sodium Chloride 20 ml @ 20 mls/hr 1X ONCE IV Last administered on 10/05/19at 10:09; Start 10/05/19 at 10:00; Stop 10/05/19 at 10:59; Status DC Potassium Acetate 60 meq/Magnesium Sulfate 10 meq/ Multivitamins 10 ml/Chromium/ Copper/Manganese/ Seleni/Zn 1 ml/ Insulin Human Regular 20 unit/ Total Parenteral Nutrition/Amino Acids/Dextrose/ Fat Emulsion Intravenous 1,920 ml @ 80 mls/hr TPN CONT IV Last administered on 10/05/19at 21:55; Start 10/05/19 at 22:00; Stop 10/06/19 at 21:59; Status DC Albumin Human 500 ml @ 125 mls/hr 1X ONCE IV Last administered on 10/06/19at 12:01; Start 10/06/19 at 11:15; Stop 10/06/19 at 15:14; Status DC Sodium Chloride 500 ml @ 500 mls/hr 1X ONCE IV Last administered on 10/06/19at 13:50; Start 10/06/19 at 11:15; Stop 10/06/19 at 12:14; Status DC Potassium Acetate 60 meq/Magnesium Sulfate 14 meq/ Multivitamins 10 ml/Chromium/ Copper/Manganese/ Seleni/Zn 1 ml/ Insulin Human Regular 20 unit/ Total Parenteral Nutrition/Amino Acids/Dextrose/ Fat Emulsion Intravenous 1,920 ml @ 80 mls/hr TPN CONT IV Last administered on 10/06/19at 22:26; Start 10/06/19 at 22:00; Stop 10/07/19 at 21:59; Status DC Ciprofloxacin/ Dextrose 200 ml @ 200 mls/hr Q12HR IV Last administered on 10/13/19at 08:27; Start 10/06/19 at 21:00; Stop 10/13/19 at 08:56; Status DC Albumin Human 250 ml @ 62.5 mls/hr 1X ONCE IV Last administered on 10/07/19at 11:09; Start 10/07/19 at 11:00; Stop 10/07/19 at 14:59; Status DC Furosemide (Lasix) 20 mg 1X ONCE IVP Last administered on 10/07/19at 14:52; Start 10/07/19 at 10:45; Stop 10/07/19 at 10:49; Status DC Potassium Acetate 60 meq/Magnesium Sulfate 14 meq/ Multivitamins 10 ml/Chromium/ Copper/Manganese/ Seleni/Zn 1 ml/ Insulin Human Regular 15 unit/ Total Parenteral Nutrition/Amino Acids/Dextrose/ Fat Emulsion Intravenous 1,920 ml @ 80 mls/hr TPN CONT IV Last administered on 10/07/19at 22:08; Start 10/07/19 at 22:00; Stop 10/08/19 at 21:59; Status DC Potassium Acetate 60 meq/Magnesium Sulfate 14 meq/ Multivitamins 10 ml/Chromium/ Copper/Manganese/ Seleni/Zn 1 ml/ Insulin Human Regular 15 unit/ Total Parenteral Nutrition/Amino Acids/Dextrose/ Fat Emulsion Intravenous 1,920 ml @ 80 mls/hr TPN CONT IV Last administered on 10/08/19at 22:12; Start 10/08/19 at 22:00; Stop 10/09/19 at 21:59; Status DC Potassium Acetate 60 meq/Magnesium Sulfate 14 meq/ Multivitamins 10 ml/Chromium/ Copper/Manganese/ Seleni/Zn 1 ml/ Insulin Human Regular 15 unit/ Total Parenteral Nutrition/Amino Acids/Dextrose/ Fat Emulsion Intravenous 1,920 ml @ 80 mls/hr TPN CONT IV Last administered on 10/09/19at 22:22; Start 10/09/19 at 22:00; Stop 10/10/19 at 21:59; Status DC Furosemide (Lasix) 20 mg 1X ONCE IVP Last administered on 10/10/19at 11:07; Start 10/10/19 at 10:30; Stop 10/10/19 at 10:34; Status DC Potassium Acetate 60 meq/Magnesium Sulfate 14 meq/ Multivitamins 10 ml/Chromium/ Copper/Manganese/ Seleni/Zn 1 ml/ Insulin Human Regular 15 unit/ Sodium Chloride 20 meq/Total Parenteral Nutrition/Amino Acids/Dextrose/ Fat Emulsion Intravenous 1,920 ml @ 80 mls/hr TPN CONT IV Last administered on 10/10/19at 21:54; Start 10/10/19 at 22:00; Stop 10/11/19 at 21:59; Status DC Potassium Acetate 30 meq/Magnesium Sulfate 14 meq/ Multivitamins 10 ml/Chromium/ Copper/Manganese/ Seleni/Zn 1 ml/ Insulin Human Regular 15 unit/ Sodium Chloride 20 meq/Potassium Chloride 30 meq/ Total Parenteral Nutrition/Amino Acids/Dextrose/ Fat Emulsion Intravenous 1,920 ml @ 80 mls/hr TPN CONT IV Last administered on 10/11/19at 21:46; Start 10/11/19 at 22:00; Stop 10/12/19 at 21:59; Status DC Sodium Chloride 80 meq/Potassium Chloride 30 meq/ Potassium Acetate 30 meq/Magnesium Sulfate 14 meq/ Multivitamins 10 ml/Chromium/ Copper/Manganese/ Seleni/Zn 1 ml/ Insulin Human Regular 15 unit/ Total Parenteral Nutrition/Amino Acids/Dextrose/ Fat Emulsion Intravenous 1,920 ml @ 80 mls/hr TPN CONT IV Last administered on 10/12/19at 22:33; Start 10/12/19 at 22:00; Stop 10/13/19 at 21:59; Status DC Furosemide (Lasix) 40 mg 1X ONCE IVP Last administered on 10/12/19at 16:27; Start 10/12/19 at 15:30; Stop 10/12/19 at 15:33; Status DC Albumin Human 250 ml @ 62.5 mls/hr 1X ONCE IV Last administered on 10/12/19at 16:27; Start 10/12/19 at 15:30; Stop 10/12/19 at 19:29; Status DC Sodium Chloride 80 meq/Potassium Chloride 30 meq/ Potassium Acetate 30 meq/Magne sium Sulfate 14 meq/ Multivitamins 10 ml/Chromium/ Copper/Manganese/ Seleni/Zn 1 ml/ Insulin Human Regular 15 unit/ Total Parenteral Nutrition/Amino Acids/Dextrose/ Fat Emulsion Intravenous 1,920 ml @ 80 mls/hr TPN CONT IV Last administered on 10/13/19at 22:25; Start 10/13/19 at 22:00; Stop 10/14/19 at 21:59; Status DC Sodium Chloride 80 meq/Potassium Chloride 30 meq/ Potassium Acetate 30 meq/Magnesium Sulfate 14 meq/ Multivitamins 10 ml/Chromium/ Copper/Manganese/ Seleni/Zn 1 ml/ Insulin Human Regular 15 unit/ Total Parenteral Nutrition/Amino Acids/Dextrose/ Fat Emulsion Intravenous 1,920 ml @ 80 mls/hr TPN CONT IV Last administered on 10/14/19at 21:32; Start 10/14/19 at 22:00; Stop 10/15/19 at 21:59; Status DC Sodium Chloride 80 meq/Potassium Chloride 30 meq/ Potassium Acetate 30 meq/Magnesium Sulfate 14 meq/ Multivitamins 10 ml/Chromium/ Copper/Manganese/ Seleni/Zn 1 ml/ Insulin Human Regular 15 unit/ Total Parenteral Nutrition/Amino Acids/Dextrose/ Fat Emulsion Intravenous 1,920 ml @ 80 mls/hr TPN CONT IV Last administered on 10/15/19at 21:53; Start 10/15/19 at 22:00; Stop 10/16/19 at 21:59; Status DC Acetylcysteine (Mucomyst 20% Resp Treatment) 600 mg RTBID NEB Last administered on 10/28/19at 07:29; Start 10/15/19 at 12:00 Sodium Chloride 80 meq/Potassium Chloride 30 meq/ Potassium Acetate 30 meq/Magnesium Sulfate 14 meq/ Multivitamins 10 ml/Chromium/ Copper/Manganese/ Se dinorah/Zn 1 ml/ Insulin Human Regular 15 unit/ Total Parenteral Nutrition/Amino Acids/Dextrose/ Fat Emulsion Intravenous 1,920 ml @ 80 mls/hr TPN CONT IV Last administered on 10/16/19at 22:06; Start 10/16/19 at 22:00; Stop 10/17/19 at 21:59; Status DC Meropenem 500 mg/ Sodium Chloride 50 ml @ 100 mls/hr Q6HRS IV Last administered on 10/28/19at 07:43; Start 10/16/19 at 18:00 Daptomycin 500 mg/ Sodium Chloride 50 ml @ 100 mls/hr Q24H IV Last administered on 10/24/19at 21:47; Start 10/16/19 at 19:00; Stop 10/25/19 at 08:13; Status DC Sodium Chloride 80 meq/Potassium Chloride 30 meq/ Potassium Acetate 30 meq/Magnesium Sulfate 14 meq/ Multivitamins 10 ml/Chromium/ Copper/Manganese/ Seleni/Zn 1 ml/ Insulin Human Regular 15 unit/ Total Parenteral Nutrition/Amino Acids/Dextrose/ Fat Emulsion Intravenous 1,920 ml @ 80 mls/hr TPN CONT IV Last administered on 10/17/19at 22:09; Start 10/17/19 at 22:00; Stop 10/18/19 at 21:59; Status DC Heparin Sodium (Porcine) 1000 unit/Sodium Chloride 1,001 ml @ 1,001 mls/hr 1X ONCE IRR ; Start 10/18/19 at 06:00; Stop 10/18/19 at 06:59; Status DC Propofol (Diprivan) 200 mg STK-MED ONCE IV ; Start 10/18/19 at 07:44; Stop 10/18/19 at 07:44; Status DC Lidocaine HCl (Lidocaine Pf 2% Vial) 5 ml STK-MED ONCE .ROUTE ; Start 10/18/19 at 07:44; Stop 10/18/19 at 07:44; Status DC Fentanyl Citrate (Fentanyl 2ml Vial) 100 mcg STK-MED ONCE .ROUTE ; Start 10/18/19 at 07:44; Stop 10/18/19 at 07:44; Status DC Rocuronium Acton (Zemuron) 100 mg STK-MED ONCE .ROUTE ; Start 10/18/19 at 07:44; Stop 10/18/19 at 07:44; Status DC Micafungin Sodium 100 mg/Dextrose 100 ml @ 100 mls/hr Q24H IV Last administered on 10/27/19at 09:15; Start 10/18/19 at 08:30 Bupivacaine HCl/ Epinephrine Bitart (Sensorcain-Epi 0.5%-1:524279 Mpf) 30 ml STK-MED ONCE .ROUTE ; Start 10/18/19 at 08:34; Stop 10/18/19 at 08:35; Status DC Iohexol (Omnipaque 300 Mg/ml) 50 ml STK-MED ONCE .ROUTE Last administered on 10/18/19at 13:30; Start 10/18/19 at 08:35; Stop 10/18/19 at 08:35; Status DC Sodium Chloride 80 meq/Potassium Chloride 30 meq/ Potassium Acetate 30 meq/Magnesium Sulfate 14 meq/ Multivitamins 10 ml/Chromium/ Copper/Manganese/ Seleni/Zn 1 ml/ Insulin Human Regular 15 unit/ Total Parenteral Nutrition/Amino Acids/Dextrose/ Fat Emulsion Intravenous 1,920 ml @ 80 mls/hr TPN CONT IV Last administered on 10/19/19at 01:22; Start 10/18/19 at 22:00; Stop 10/19/19 at 21:59; Status DC Phenylephrine HCl (Brayden-Synephrine Inj) 10 mg STK-MED ONCE .ROUTE ; Start 10/18/19 at 10:15; Stop 10/18/19 at 10:15; Status DC Desflurane (Suprane) 90 ml STK-MED ONCE IH ; Start 10/18/19 at 10:18; Stop 10/18/19 at 10:19; Status DC Albumin Human 500 ml @ As Directed STK-MED ONCE IV ; Start 10/18/19 at 11:06; Stop 10/18/19 at 11:06; Status DC Vasopressin (Vasostrict) 20 unit STK-MED ONCE .ROUTE ; Start 10/18/19 at 12:23; Stop 10/18/19 at 12:23; Status DC Phenylephrine HCl (Brayden-Synephrine Inj) 10 mg STK-MED ONCE .ROUTE ; Start 10/18/19 at 13:33; Stop 10/18/19 at 13:33; Status DC Phenylephrine HCl (Brayden-Synephrine Inj) 10 mg STK-MED ONCE .ROUTE ; Start at 13:33; Stop 10/18/19 at 13:33; Status DC Ondansetron HCl (Zofran) 4 mg STK-MED ONCE .ROUTE ; Start 10/18/19 at 13:33; Stop 10/18/19 at 13:33; Status DC Enoxaparin Sodium (Lovenox 40mg Syringe) 40 mg Q24H SQ Last administered on 10/28/19at 08:30; Start 10/19/19 at 08:00 Sodium Chloride (Normal Saline Flush) 3 ml QSHIFT PRN IV AFTER MEDS AND BLOOD DRAWS; Start 10/18/19 at 14:45 Naloxone HCl (Narcan) 0.4 mg PRN Q2MIN PRN IV SEE INSTRUCTIONS; Start 10/18/19 at 14:45 Sodium Chloride 1,000 ml @ 25 mls/hr Q24H IV Last administered on 10/26/19at 21:15; Start 10/18/19 at 14:33 Morphine Sulfate (Morphine Sulfate) 1 mg PRN Q1HR PRN IV PAIN; Start 10/18/19 at 14:45 Midazolam HCl 100 mg/Sodium Chloride 100 ml @ 1 mls/hr CONT PRN IV SEE I/O RECORD Last administered on 10/21/19at 18:48; Start 10/18/19 at 14:45 Phenylephrine HCl (PHENYLEPHRINE in 0.9% NACL PF) 1 mg STK-MED ONCE IV ; Start 10/18/19 at 14:44; Stop 10/18/19 at 14:45; Status DC Ephedrine Sulfate (ePHEDrine PF IN SALINE SYRINGE) 50 mg STK-MED ONCE IV ; Start 10/18/19 at 14:45; Stop 10/18/19 at 14:45; Status DC Vasopressin 20 unit/Dextrose 101 ml @ 12 mls/hr CONT PRN IV SEE I/O RECORD Last administered on 10/25/19at 04:17; Start 10/18/19 at 15:30 Sodium Chloride 1,000 ml @ 1,000 mls/hr 1X ONCE IV Last administered on 10/18/19at 15:42; Start 10/18/19 at 15:45; Stop 10/18/19 at 16:44; Status DC Albumin Human 500 ml @ 125 mls/hr 1X ONCE IV ; Start 10/18/19 at 16:00; Stop 10/18/19 at 19:59; Status DC Albumin Human 500 ml @ 125 mls/hr PRN Q1HR PRN IV PER PROTOCOL; Start 10/18/19 at 15:45 Magnesium Sulfate 50 ml @ 25 mls/hr 1X ONCE IV Last administered on 10/18/19at 17:02; Start 10/18/19 at 16:30; Stop 10/18/19 at 18:29; Status DC Sodium Bicarbonate (Sodium Bicarb Adult 8.4% Syr) 50 meq STK-MED ONCE .ROUTE ; Start 10/18/19 at 16:20; Stop 10/18/19 at 16:20; Status DC Sodium Bicarbonate (Sodium Bicarb Adult 8.4% Syr) 100 meq 1X ONCE IV Last administered on 10/18/19at 17:07; Start 10/18/19 at 16:30; Stop 10/18/19 at 16:31; Status DC Sodium Bicarbonate 150 meq/Dextrose 1,150 ml @ 75 mls/hr 1X ONCE IV Last administered on 10/18/19at 20:02; Start 10/18/19 at 16:30; Stop 10/19/19 at 07:49; Status DC Sodium Chloride 80 meq/Potassium Chloride 30 meq/ Potassium Acetate 30 meq/Magnesium Sulfate 14 meq/ Multivitamins 10 ml/Chromium/ Copper/Manganese/ Seleni/Zn 1 ml/ Insulin Human Regular 15 unit/ Total Parenteral Nutrition/Amino Acids/Dextrose/ Fat Emulsion Intravenous 1,920 ml @ 80 mls/hr TPN CONT IV Last administered on 10/19/19at 23:05; Start 10/19/19 at 22:00; Stop 10/20/19 at 21:59; Status DC Sodium Chloride 100 meq/Potassium Chloride 30 meq/ Potassium Acetate 30 meq/Magnesium Sulfate 12 meq/ Multivitamins 10 ml/Chromium/ Copper/Manganese/ Seleni/Zn 1 ml/ Insulin Human Regular 15 unit/ Total Parenteral Nutrition/Amino Acids/Dextrose/ Fat Emulsion Intravenous 1,920 ml @ 80 mls/hr TPN CONT IV Last administered on 10/20/19at 21:52; Start 10/20/19 at 22:00; Stop 10/21/19 at 21:59; Status DC Sodium Chloride 100 meq/Potassium Chloride 30 meq/ Potassium Acetate 30 meq/Magnesium Sulfate 12 meq/ Multivitamins 10 ml/Chromium/ Copper/Manganese/ Seleni/Zn 1 ml/ Insulin Human Regular 15 unit/ Total Parenteral Nutrition/Amino Acids/Dextrose/ Fat Emulsion Intravenous 1,920 ml @ 80 mls/hr TPN CONT IV Last administered on 10/21/19at 21:46; Start 10/21/19 at 22:00; Stop 10/22/19 at 21:59; Status DC Sodium Chloride 100 meq/Potassium Chloride 30 meq/ Potassium Acetate 30 meq/Magnesium Sulfate 12 meq/ Multivitamins 10 ml/Chromium/ Copper/Manganese/ Seleni/Zn 1 ml/ Insulin Human Regular 15 unit/ Total Parenteral Nutrition/Amino Acids/Dextrose/ Fat Emulsion Intravenous 1,800 ml @ 75 mls/hr TPN CONT IV Last administered on 10/22/19at 22:04; Start 10/22/19 at 22:00; Stop 10/23/19 at 21:59; Status DC Fentanyl Citrate 55 ml @ 0 mls/hr CONT PRN IV SEE COMMENTS Last administered on 10/24/19at 23:55; Start 10/22/19 at 13:00; Stop 10/27/19 at 17:28; Status DC Sodium Chloride 100 meq/Potassium Chloride 30 meq/ Potassium Acetate 30 meq/Magnesium Sulfate 12 meq/ Multivitamins 10 ml/Chromium/ Copper/Manganese/ Seleni/Zn 1 ml/ Insulin Human Regular 15 unit/ Total Parenteral Nutrition/Amino Acids/Dextrose/ Fat Emulsion Intravenous 1,680 ml @ 70 mls/hr TPN CONT IV Last administered on 10/23/19at 21:23; Start 10/23/19 at 22:00; Stop 10/24/19 at 21:59; Status DC Sodium Chloride 110 meq/Potassium Chloride 30 meq/ Potassium Acetate 30 meq/Magnesium Sulfate 15 meq/ Multivitamins 10 ml/Chromium/ Copper/Manganese/ Seleni/Zn 1 ml/ Insulin Human Regular 15 unit/ Total Parenteral Nutrition/Amino Acids/Dextrose/ Fat Emulsion Intravenous 1,680 ml @ 70 mls/hr TPN CONT IV Last administered on 10/24/19at 21:48; Start 10/24/19 at 22:00; Stop 10/25/19 at 21:59; Status DC Sodium Chloride 110 meq/Potassium Chloride 30 meq/ Potassium Acetate 30 meq/Magnesium Sulfate 15 meq/ Multivitamins 10 ml/Chromium/ Copper/Manganese/ Seleni/Zn 1 ml/ Insulin Human Regular 15 unit/ Total Parenteral Nutrition/Amino Acids/Dextrose/ Fat Emulsion Intravenous 1,680 ml @ 70 mls/hr TPN CONT IV Last administered on 10/25/19at 21:33; Start 10/25/19 at 22:00; Stop 10/26/19 at 21:59; Status DC Sodium Chloride 110 meq/Potassium Chloride 30 meq/ Potassium Acetate 30 meq/Magn esium Sulfate 15 meq/ Multivitamins 10 ml/Chromium/ Copper/Manganese/ Seleni/Zn 1 ml/ Insulin Human Regular 15 unit/ Total Parenteral Nutrition/Amino Acids/Dextrose/ Fat Emulsion Intravenous 1,680 ml @ 70 mls/hr TPN CONT IV Last administered on 10/26/19at 21:51; Start 10/26/19 at 22:00; Stop 10/27/19 at 21:59; Status DC Sodium Chloride 90 meq/Potassium Chloride 30 meq/ Potassium Acetate 30 meq/Magnesium Sulfate 15 meq/ Multivitamins 10 ml/Chromium/ Copper/Manganese/ Seleni/Zn 1 ml/ Insulin Human Regular 15 unit/ Total Parenteral Nutrition/Amino Acids/Dextrose/ Fat Emulsion Intravenous 1,680 ml @ 70 mls/hr TPN CONT IV Last administered on 10/27/19at 22:38; Start 10/27/19 at 22:00; Stop 10/28/19 at 21:59 Fentanyl Citrate 30 ml @ 0 mls/hr CONT PRN IV SEE I/O RECORD; Start 10/27/19 at 17:30 Fentanyl (Duragesic 12mcg/ Hr Patch) 1 patch Q3DAYS TD ; Start 10/28/19 at 09:00 Active Scripts Active Reported Bisoprolol Fumarate 5 Mg Tablet 10 Mg PO DAILY Vitals/I & O Vital Sign - Last 24 Hours 10/27/19 10/27/19 10/27/19 10/27/19 10:00 11:00 11:50 12:00 Temp 99.9 99.9 Pulse 110 104 112 Resp 24 24 28 B/P (MAP) 151/80 (103) 156/80 (105) 141/88 (105) Pulse Ox 100 100 99 100 O2 Delivery Venturi Mask Venturi Mask Tracheal Collar Ventilator O2 Flow Rate 10.0 10/27/19 10/27/19 10/27/19 10/27/19 12:00 13:00 14:00 15:00 Pulse 112 120 106 Resp 24 24 24 B/P (MAP) 146/92 (110) Pulse Ox 100 100 100 O2 Delivery Trach Collar Venturi Mask Venturi Mask Venturi Mask O2 Flow Rate 10.0 10/27/19 10/27/19 10/27/19 10/27/19 15:13 16:00 16:00 17:00 Temp 98.9 98.9 Pulse 114 106 Resp 24 24 B/P (MAP) 148/85 (106) Pulse Ox 100 100 100 O2 Delivery Tracheal Collar Venturi Mask Trach Collar Venturi Mask O2 Flow Rate 10.0 10.0 10/27/19 10/27/19 10/27/19 10/27/19 18:00 19:00 19:23 20:00 Temp 98.6 98.6 Pulse 114 113 111 Resp 24 36 40 B/P (MAP) 147/97 (114) 151/95 (113) Pulse Ox 100 100 100 100 O2 Delivery Venturi Mask Venturi Mask Tracheal Collar Venturi Mask O2 Flow Rate 10.0 10/27/19 10/27/19 10/27/19 10/27/19 20:00 21:00 22:00 23:00 Pulse 110 107 106 Resp 34 26 25 B/P (MAP) 152/96 (114) 159/91 (113) 141/71 (94) Pulse Ox 100 100 100 O2 Delivery Trach Collar Venturi Mask Venturi Mask Venturi Mask O2 Flow Rate 10.0 10/27/19 10/28/19 10/28/19 10/28/19 23:38 00:00 00:00 01:00 Temp 98.5 98.5 Pulse 108 110 Resp 33 32 B/P (MAP) 143/76 (98) 144/78 (100) Pulse Ox 98 100 100 O2 Delivery Tracheal Collar Trach Collar Venturi Mask Venturi Mask O2 Flow Rate 10.0 10.0 10/28/19 10/28/19 10/28/19 10/28/19 02:00 03:00 04:00 04:00 Temp 99.3 99.3 Pulse 109 119 103 Resp 32 32 34 B/P (MAP) 148/79 (102) 142/83 (102) 147/82 (103) Pulse Ox 100 100 100 O2 Delivery Venturi Mask Venturi Mask Trach Collar Venturi Mask O2 Flow Rate 10.0 10/28/19 10/28/19 10/28/19 10/28/19 04:32 05:00 06:00 07:29 Pulse 108 109 Resp 34 36 B/P (MAP) 147/51 (83) 181/101 (127) Pulse Ox 98 100 100 98 O2 Delivery Tracheal Collar Venturi Mask Venturi Mask Tracheal Collar O2 Flow Rate 10.0 10.0 10/28/19 08:32 Pulse 108 B/P (MAP) 172/101 Intake and Output 10/27/19 10/27/19 10/28/19 15:00 23:00 07:00 Intake Total 100 ml 1222 ml 100 ml Output Total 240 ml 1160 ml 875 ml Balance -140 ml 62 ml -775 ml Justicifation of Admission Dx: Justifications for Admission: Justification of Admission Dx: Yes DAVIN LANDEROS MD Oct 28, 2019 09:11
--- NOTE | 2019-10-28 09:21 | PDOC ---
SURGICAL PROGRESS NOTE Subjective Patient no longer sedated little communication Vital Signs Vital Signs Date Time Temp Pulse Resp B/P (MAP) Pulse Ox O2 Delivery O2 Flow Rate FiO2 10/28/19 08:32 108 172/101 10/28/19 07:29 98 Tracheal Collar 10.0 10/28/19 06:00 36 10/28/19 04:00 99.3 99.3 I&O Intake and Output 10/28/19 07:00 Intake Total 1422 ml Output Total 2275 ml Balance -853 ml IV Total 1122 ml Tube Feeding 300 ml Other 0 ml Output Urine Total 1335 ml Chest Tube Drainage Total 110 ml Drainage Total 830 ml PATIENT HAS A ROSARIO: Yes General: Cooperative, mild distress Abdomen: Normal bowel sounds, Soft, No tenderness, Other (Multiple drains with output no significant changes) Labs Laboratory Tests Test 10/26/19 11:52 10/26/19 17:42 10/27/19 00:05 10/27/19 05:35 Glucose (Fingerstick) 163 mg/dL (70-99) 150 mg/dL (70-99) 144 mg/dL (70-99) White Blood Count 13.4 x10^3/uL (4.0-11.0) Red Blood Count 2.64 x10^6/uL (3.50-5.40) Hemoglobin 7.9 g/dL (12.0-15.5) Hematocrit 23.5 % (36.0-47.0) Mean Corpuscular Volume 89 fL (79-100) Mean Corpuscular Hemoglobin 30 pg (25-35) Mean Corpuscular Hemoglobin Concent 34 g/dL (31-37) Red Cell Distribution Width 15.1 % (11.5-14.5) Platelet Count 559 x10^3/uL (140-400) Neutrophils (%) (Auto) 83 % (31-73) Lymphocytes (%) (Auto) 8 % (24-48) Monocytes (%) (Auto) 7 % (0-9) Eosinophils (%) (Auto) 2 % (0-3) Basophils (%) (Auto) 0 % (0-3) Neutrophils # (Auto) 11.1 x10^3/uL (1.8-7.7) Lymphocytes # (Auto) 1.1 x10^3/uL (1.0-4.8) Monocytes # (Auto) 1.0 x10^3/uL (0.0-1.1) Eosinophils # (Auto) 0.2 x10^3/uL (0.0-0.7) Basophils # (Auto) 0.0 x10^3/uL (0.0-0.2) Sodium Level 145 mmol/L (136-145) Potassium Level 4.2 mmol/L (3.5-5.1) Chloride Level 110 mmol/L (98-107) Carbon Dioxide Level 32 mmol/L (21-32) Anion Gap 3 (6-14) Blood Urea Nitrogen 14 mg/dL (7-20) Creatinine 0.5 mg/dL (0.6-1.0) Estimated GFR (Cockcroft-Gault) 131.1 Glucose Level 150 mg/dL (70-99) Calcium Level 9.8 mg/dL (8.5-10.1) Phosphorus Level 3.6 mg/dL (2.6-4.7) Magnesium Level 2.0 mg/dL (1.8-2.4) Test 10/27/19 05:50 10/27/19 12:48 10/27/19 23:04 10/28/19 05:50 Glucose (Fingerstick) 144 mg/dL (70-99) 131 mg/dL (70-99) 138 mg/dL (70-99) White Blood Count 15.4 x10^3/uL (4.0-11.0) Red Blood Count 2.86 x10^6/uL (3.50-5.40) Hemoglobin 8.4 g/dL (12.0-15.5) Hematocrit 25.4 % (36.0-47.0) Mean Corpuscular Volume 89 fL (79-100) Mean Corpuscular Hemoglobin 29 pg (25-35) Mean Corpuscular Hemoglobin Concent 33 g/dL (31-37) Red Cell Distribution Width 15.0 % (11.5-14.5) Platelet Count 681 x10^3/uL (140-400) Neutrophils (%) (Auto) 84 % (31-73) Lymphocytes (%) (Auto) 8 % (24-48) Monocytes (%) (Auto) 7 % (0-9) Eosinophils (%) (Auto) 1 % (0-3) Basophils (%) (Auto) 0 % (0-3) Neutrophils # (Auto) 12.9 x10^3/uL (1.8-7.7) Lymphocytes # (Auto) 1.2 x10^3/uL (1.0-4.8) Monocytes # (Auto) 1.0 x10^3/uL (0.0-1.1) Eosinophils # (Auto) 0.2 x10^3/uL (0.0-0.7) Basophils # (Auto) 0.1 x10^3/uL (0.0-0.2) Sodium Level 143 mmol/L (136-145) Potassium Level 4.1 mmol/L (3.5-5.1) Chloride Level 107 mmol/L (98-107) Carbon Dioxide Level 32 mmol/L (21-32) Anion Gap 4 (6-14) Blood Urea Nitrogen 15 mg/dL (7-20) Creatinine 0.5 mg/dL (0.6-1.0) Estimated GFR (Cockcroft-Gault) 131.1 Glucose Level 151 mg/dL (70-99) Calcium Level 9.9 mg/dL (8.5-10.1) Test 10/28/19 06:07 Glucose (Fingerstick) 103 mg/dL (70-99) Laboratory Tests Test 10/27/19 12:48 10/27/19 23:04 10/28/19 05:50 10/28/19 06:07 Glucose (Fingerstick) 131 mg/dL (70-99) 138 mg/dL (70-99) 103 mg/dL (70-99) White Blood Count 15.4 x10^3/uL (4.0-11.0) Red Blood Count 2.86 x10^6/uL (3.50-5.40) Hemoglobin 8.4 g/dL (12.0-15.5) Hematocrit 25.4 % (36.0-47.0) Mean Corpuscular Volume 89 fL (79-100) Mean Corpuscular Hemoglobin 29 pg (25-35) Mean Corpuscular Hemoglobin Concent 33 g/dL (31-37) Red Cell Distribution Width 15.0 % (11.5-14.5) Platelet Count 681 x10^3/uL (140-400) Neutrophils (%) (Auto) 84 % (31-73) Lymphocytes (%) (Auto) 8 % (24-48) Monocytes (%) (Auto) 7 % (0-9) Eosinophils (%) (Auto) 1 % (0-3) Basophils (%) (Auto) 0 % (0-3) Neutrophils # (Auto) 12.9 x10^3/uL (1.8-7.7) Lymphocytes # (Auto) 1.2 x10^3/uL (1.0-4.8) Monocytes # (Auto) 1.0 x10^3/uL (0.0-1.1) Eosinophils # (Auto) 0.2 x10^3/uL (0.0-0.7) Basophils # (Auto) 0.1 x10^3/uL (0.0-0.2) Sodium Level 143 mmol/L (136-145) Potassium Level 4.1 mmol/L (3.5-5.1) Chloride Level 107 mmol/L (98-107) Carbon Dioxide Level 32 mmol/L (21-32) Anion Gap 4 (6-14) Blood Urea Nitrogen 15 mg/dL (7-20) Creatinine 0.5 mg/dL (0.6-1.0) Estimated GFR (Cockcroft-Gault) 131.1 Glucose Level 151 mg/dL (70-99) Calcium Level 9.9 mg/dL (8.5-10.1) Problem List Problems Medical Problems: (1) Acute pancreatitis Status: Acute (2) Cholelithiasis Status: Acute Assessment/Plan Status post pancreatic debridement continue drains Tube feeds at 30 cc an hour Continue supportive care Justicifation of Admission Dx: Justifications for Admission: Justification of Admission Dx: Yes CARIN MALDONADO MD Oct 28, 2019 09:21
--- NOTE | 2019-10-28 10:10 | PDOC ---
Objective: Objective: D/w nurse - checking C Diff, tolerating tube feeds. Vital Signs: Vital Signs Date Time Temp Pulse Resp B/P (MAP) Pulse Ox O2 Delivery O2 Flow Rate FiO2 10/28/19 08:32 108 172/101 10/28/19 07:29 98 Tracheal Collar 10.0 10/28/19 06:00 36 10/28/19 04:00 99.3 99.3 Labs: Laboratory Tests Test 10/27/19 12:48 10/27/19 23:04 10/28/19 05:50 10/28/19 06:07 Glucose (Fingerstick) 131 mg/dL 138 mg/dL 103 mg/dL White Blood Count 15.4 x10^3/uL Red Blood Count 2.86 x10^6/uL Hemoglobin 8.4 g/dL Hematocrit 25.4 % Mean Corpuscular Volume 89 fL Mean Corpuscular Hemoglobin 29 pg Mean Corpuscular Hemoglobin Concent 33 g/dL Red Cell Distribution Width 15.0 % Platelet Count 681 x10^3/uL Neutrophils (%) (Auto) 84 % Lymphocytes (%) (Auto) 8 % Monocytes (%) (Auto) 7 % Eosinophils (%) (Auto) 1 % Basophils (%) (Auto) 0 % Neutrophils # (Auto) 12.9 x10^3/uL Lymphocytes # (Auto) 1.2 x10^3/uL Monocytes # (Auto) 1.0 x10^3/uL Eosinophils # (Auto) 0.2 x10^3/uL Basophils # (Auto) 0.1 x10^3/uL Sodium Level 143 mmol/L Potassium Level 4.1 mmol/L Chloride Level 107 mmol/L Carbon Dioxide Level 32 mmol/L Anion Gap 4 Blood Urea Nitrogen 15 mg/dL Creatinine 0.5 mg/dL Estimated GFR (Cockcroft-Gault) 131.1 Glucose Level 151 mg/dL Calcium Level 9.9 mg/dL PE: GEN: therapy present, going to try to stand up, many tubes A/P: S/p pancreatic necrosectomy -- Continue support. Justicifation of Admission Dx: Justifications for Admission: Justification of Admission Dx: Yes CYNDEE FALCON Oct 28, 2019 10:10
[2019-10-28] MEDS: TPN PER PHARMACY MC PRN (10:31)
--- NOTE | 2019-10-28 10:39 | NUR ---
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, 8 inches Weight: 94.917001 kg Current diet: NPO LABS: Sodium: 143 Potassium: 4.1 Chloride: 107 Calcium: 9.9 Corrected Calcium: 12.22 Magnesium: 2 CO2: 32 SCr: 0.5 Glucose: 103-151 Albumin: 1.1 AST: 25 ALT: 37 TPN FORMULA: TPN TYPE: Central Continuous AMINO ACIDS: 40 gm DEXTROSE: 225 gm LIPIDS: 20 gm SODIUM CHLORIDE: 90 mEq SODIUM ACETATE: - mEq SODIUM PHOSPHATE: - mmol POTASSIUM CHLORIDE: 30 mEq POTASSIUM ACETATE: 30 mEq POTASSIUM PHOSPHATE: - mmol MAGNESIUM: 15 mEq CALCIUM: - mEq INSULIN: 15 units MULTIPLE VITAMIN: 10 ml TRACE ELEMENTS: 1 ml ml(s) TPN PLAN: -Continue macros per dietary recommendations -Sodium and chloride trending down. Bicarb remains the same. Patient tolerated TF overnight at rate of 30 ml/hr. Plan to increase TF rate throughout the day today. Noted patient had watery BM. C. Diff pending. -No changes to be made to TPN at this time. -BMP in AM. R: Continue current TPN. Will monitor electrolytes, glucose, and tolerance to TPN. MARVIN RODNEY [facility], 10/28/19 [id number]
--- NOTE | 2019-10-28 10:58 | NUR ---
SS following up with discharge planning. SS reviewed pt chart and discussed with pt RN. Pt working with PT/OT now. Pt max assist with PT/OT but was able to pivot some. Pt remains on TPN, IV Micafungin, and IV Meropenem. Pt continues to have chest tube and J tube. All drains remain at this time. Pt on trach collar. Pt remains self pay. SS will continue to follow for discharge planning.
[2019-10-28] MEDS: MICAFUNGIN 100 MG in IV DEXTROSE 5% 100ML 100 ML IV SCH (11:59)
[2019-10-28] MEDS: IV NORMAL SALINE 1000ML BAG 1,000 ML IV SCH (14:33)
--- NOTE | 2019-10-28 16:38 | NUR ---
Pt more awake and mouthing words today. Stood for pivot to chair with max assist. Visited with mother at bedside. Fent changed to patch. Pt able to cough secretions out trach. Keiko PM valve for 8 min. Trach shield 40% all night and today. Low grade fever. All drains intact. no watery stools today.
[2019-10-28] MEDS: fentaNYL 12MCG/HR PATCH 1 PATCH PATCH.TD72 TD SCH (18:03)
[2019-10-28] MEDS: ONDANSETRON PF 4 MG/2 ML VIAL. IV PRN (18:26)
[2019-10-28] MEDS ORDERED: [UNRECOGNIZED DRUG - OTHER] IV SCH ×10 (22:00)
[2019-10-28] MEDS ORDERED: TOTAL PARENTERAL NUTRITION IV SCH ×10 (22:00)
[2019-10-28] MEDS: fentaNYL PF VIAL 100 MCG/2 ML VIAL IV PRN (22:00)
[2019-10-28] MEDS ORDERED: AMINO ACID IV SCH ×10 (22:00)
[2019-10-28] MEDS ORDERED: DEXTROSE 70% IV SCH ×10 (22:00)
[2019-10-29] VITALS (25 sets, daily range): BP systolic 138–189; BP diastolic 80–105
[2019-10-29] MEDS: MEROPENEM 500 MG in IV NORMAL SALINE 50ML 50 ML IV SCH ×4 (00:40→17:29)
[2019-10-29] MEDS: ONDANSETRON PF 4 MG/2 ML VIAL. IV PRN ×3 (01:30→22:53)
[2019-10-29] MEDS: IPRATRPIUM/ALBUTEROL 0.5/2.5MG 3 ML NEBU. NEB SCH ×6 (04:00→19:52)
[2019-10-29] MEDS: fentaNYL PF VIAL 100 MCG/2 ML VIAL IV PRN ×5 (04:36→21:50)
[2019-10-29] MEDS: INSULIN LISPRO 300 UNITS/3 ML VIAL. SQ SCH ×4 (06:17→17:29)
[2019-10-29 07:15] LABS: BASO % 0 % (0-3); EOS # 0.1 x10^3/uL (0.0-0.7); EOS % 1 % (0-3); HEMATOCRIT 26.6 % (36.0-47.0); HEMOGLOBIN 8.8 g/dL (12.0-15.5); LYMPH # 0.9 x10^3/uL (1.0-4.8); LYMPH % 6 % (24-48); MEAN CORPUSCULAR HEMOGLOBIN 29 pg (25-35); MEAN CORPUSCULAR HGB CONC 33 g/dL (31-37); MEAN CORPUSCULAR VOLUME 89 fL (79-100); MONO % 7 % (0-9); NEUT # 13.9 x10^3/uL (1.8-7.7); NEUT % 87 % (31-73); PLATELET COUNT 728 x10^3/uL (140-400); RED BLOOD COUNT 2.99 x10^6/uL (3.50-5.40); RED CELL DISTRIBUTION WIDTH 14.8 % (11.5-14.5)
[2019-10-29 07:40] LABS: CALCIUM 9.4 mg/dL (8.5-10.1); CREATININE 0.5 mg/dL (0.6-1.0); GFR 131.1; POTASSIUM 4.7 mmol/L (3.5-5.1)
[2019-10-29] MEDS: PANTOPRAZOLE IV PUSH 40 MG VIAL. IVP SCH (08:03)
[2019-10-29] MEDS: METOPROLOL TARTRATE 5 MG/5 ML VIAL. IVP PRN ×2 (08:03→14:08)
[2019-10-29] MEDS: ENOXAPARIN 40 MG/0.4 ML SYRINGE. SQ SCH (08:04)
--- NOTE | 2019-10-29 08:28 | PDOC ---
PROGRESS NOTES Chief Complaint Chief Complaint A/P Acute hypoxic Respiratory failure required mechanical ventilation Tracheostomy bilateral pleural effusions/pulm edema s/p Throacentesis on 10/03/2019 Severe Acute gallstone pancreatitis (not a surgical candidate at this time) with necrosis Acute kidney failure now requiring dialysis Gallstones (Calculus of gallbladder with acute cholecystitis without obstruction) HTN Intractable pain Intractable nausea Covid 19 negative. Acute on chronic anemia EEG: No seizure activityFever - better currently - intermittent could be from underlying pancreatitis blood cults 08/21 - neg so far ? Ileus with vomiting Abd distention - U/S and CT reviewed s/p 0.4 L of opaque, debris-containing ascites was removed 08/23 Acute pancreatitis with persistent necrosis Gallstone pancreatitis with necrosis. -CT A/P 09/23 showed multiple pseudocysts, slight larger on the right. s/p drains x 3, 09/24. + PSAE (MDRO-R Cefepime, Zosyn ALEXANDRA < 64) and yeast, -s/p drain 08/14. C. parapsilosis. s/p drain 08/23 + yeast & high amylase; s/p additional drain on 08/25. Drains removed. Ascites s/p paracentesis 08/02 & 08/23. C. parapsilosis JUANA. off HD. A large fluid collection in the pancreatic bed has slightly decreased in size, described below, the pancreas itself is difficult to visualize, which could be due to necrosis or obscuration of pancreatic parenchyma from the surrounding fluid collection.10/02 - 08/14 status post KAYLIN drain placement + C paropsilosis. s/p additional drains 08/25 Anemia - S/p PRBCs Cholelithiasis with thickening of the gallbladder wall. Leucocytosis improving JUANA, hyperkalemia, Metabolic acidosis off dialysis hypocalcemia Prediabetes HTN s/p trach ESRD on HD Hyperglycemia severe protein-caloric malnutrition Moderate to large left pleural effusion with atelectasis and collapse of most of the left lower lobe, stable Dispo - ICU, critically ill Poor prognosis History of Present Illness History of Present Illness 09/25: IR placed drain on 09/24. 4u PRBC after Hb drop. Hb 8.8 today. Off Levophed this morning. T-max 100.3. Much more lethargic today. CXR with left sided diffuse infiltrates. 6/9: Tachycardic overnight into the 140s. NGT clamped. On BIPAP currently. Drains with serosanguinous discharge. WBC 8, Tmax 99.6F. 09/27: Seen on trach shield in ICU. Hypertensive and tachycardic. Labs stable. blood stained drainage from drains. Afebrile. 09/28: Seen on trach shield in ICU. She is a bit confused, drowsy, but when sitting up is conversational and confusion somewhat clears. She is asking for more pain medication. Stable drains, still very tachy.Na 147 09/29: Patient vomited overnight. Aspirated. Tried to pull her trach out, she was told she would without her trach, she said "I know, I just want to go home". Hb 7.6. Afebrile, still very tachycardic. 1055ml out of right sided KAYLIN drain 09/30: Overnight hypoxic, on BIPAP. CXR with left sided white out lung. Significant mucous plug suctioned by RT with improvement in her ABG after 2 hours this morning. Not really active, tired, lethargic. 890ml out of drains past 24 hours. On vent. D/w daughter bedside. 10/16: To OR for pancreatic necrosectomy, cholecystectomy, lysis of adhesions, gastrostomy tube placement 10/24, awake on vent, weaning sedation, cont other, still with marked drainage 10/25: Still on fentanyl. WBC 15.4, Hb 8.7 Metabolic panel WNL except calcium 10.2 with albumin 1.1. She awakens off sedation, still connected to vent currently. 10/26: FiO2 40% 5 PEEP, WBC 13.4, Hb 7.9, platelets 551. Still on fentanyl, she is working with PT. 10/27: Off vent during the day. Working with PT. Labs stable. Hb to 8.5. Working with PT/OT. She has been suctioning quite a bit of respiratory secretions as well as loose bowels. C diff pending. Afebrile, still with loose bowels overnight C. difficile negative. WBC up to 16 coughing up thick yellow sputum able to cough out her trach when taken off trach shield she still has O2 saturations 97%. Gastrostomy tube to gravity with fairly significant drainage that appears to be tube feeds and gastric secretions. She notes pain is better controlled with the fentanyl patch. Blood pressure elevated heart rate elevated is on metoprolol. prognosis still poor, but improving slowly Cont ICU Vitals Vitals Vital Signs Date Time Temp Pulse Resp B/P (MAP) Pulse Ox O2 Delivery O2 Flow Rate FiO2 10/29/19 08:03 126 163/87 10/29/19 06:00 31 100 Trach shield 10/29/19 05:06 10.0 10/29/19 04:00 99.6 99.6 Physical Exam Physical Exam GENERAL: Alert, NAD tired appearing but some better HEENT: Pupils equal, oral cavity dry. + NGT NECK: Tracheostomy LUNGS: Diminished aeration bases, CT on left HEART: S1, S2, regular w/ PVCs ABDOMEN: Sightly less distended, bowel sounds hypoactive, soft, goyal x 2, 3 KAYLIN drains, G-J tube and + wound vac : Lnid in place EXTREMITIES: Generalized edema, no cyanosis. SCDs & Podus boots bilaterally SKIN: warm touch. No signs of rash. LUE-PICC without signs of complications LUE art-line out, mottling left forearm about ole art-line site is improving. RP palpable, cap refill brisk. NEURO: alert and some responsive - tracking General: Cooperative, mild distress Heart: Regular rate (SR/ST), Other (distant heart sounds) Lungs: Crackles Abdomen: Normal bowel sounds, Soft, No tenderness, Other (Multiple drains with output no significant changes) Extremities: Other (Diffuse edema) Skin: No rashes, No significant lesion Labs LABS Laboratory Tests Test 10/28/19 18:00 10/29/19 00:38 10/29/19 06:10 Glucose (Fingerstick) 138 mg/dL (70-99) 147 mg/dL (70-99) White Blood Count 16.0 x10^3/uL (4.0-11.0) Red Blood Count 2.99 x10^6/uL (3.50-5.40) Hemoglobin 8.8 g/dL (12.0-15.5) Hematocrit 26.6 % (36.0-47.0) Mean Corpuscular Volume 89 fL (79-100) Mean Corpuscular Hemoglobin 29 pg (25-35) Mean Corpuscular Hemoglobin Concent 33 g/dL (31-37) Red Cell Distribution Width 14.8 % (11.5-14.5) Platelet Count 728 x10^3/uL (140-400) Neutrophils (%) (Auto) 87 % (31-73) Lymphocytes (%) (Auto) 6 % (24-48) Monocytes (%) (Auto) 7 % (0-9) Eosinophils (%) (Auto) 1 % (0-3) Basophils (%) (Auto) 0 % (0-3) Neutrophils # (Auto) 13.9 x10^3/uL (1.8-7.7) Lymphocytes # (Auto) 0.9 x10^3/uL (1.0-4.8) Monocytes # (Auto) 1.0 x10^3/uL (0.0-1.1) Eosinophils # (Auto) 0.1 x10^3/uL (0.0-0.7) Basophils # (Auto) 0.0 x10^3/uL (0.0-0.2) Sodium Level 142 mmol/L (136-145) Potassium Level 4.7 mmol/L (3.5-5.1) Chloride Level 107 mmol/L (98-107) Carbon Dioxide Level 31 mmol/L (21-32) Anion Gap 4 (6-14) Blood Urea Nitrogen 13 mg/dL (7-20) Creatinine 0.5 mg/dL (0.6-1.0) Estimated GFR (Cockcroft-Gault) 131.1 Glucose Level 169 mg/dL (70-99) Calcium Level 9.4 mg/dL (8.5-10.1) Assessment and Plan Assessmemt and Plan Problems Medical Problems: (1) Acute pancreatitis Status: Acute (2) Cholelithiasis Status: Acute Comment Review of Relevant I have reviewed the following items kolby (where applicable) has been applied. Labs Laboratory Tests Test 10/27/19 12:48 10/27/19 23:04 10/28/19 05:30 10/28/19 05:50 Glucose (Fingerstick) 131 mg/dL (70-99) 138 mg/dL (70-99) Clostridium difficile Toxin (PCR) Negative (NEGATIVE) White Blood Count 15.4 x10^3/uL (4.0-11.0) Red Blood Count 2.86 x10^6/uL (3.50-5.40) Hemoglobin 8.4 g/dL (12.0-15.5) Hematocrit 25.4 % (36.0-47.0) Mean Corpuscular Volume 89 fL (79-100) Mean Corpuscular Hemoglobin 29 pg (25-35) Mean Corpuscular Hemoglobin Concent 33 g/dL (31-37) Red Cell Distribution Width 15.0 % (11.5-14.5) Platelet Count 681 x10^3/uL (140-400) Neutrophils (%) (Auto) 84 % (31-73) Lymphocytes (%) (Auto) 8 % (24-48) Monocytes (%) (Auto) 7 % (0-9) Eosinophils (%) (Auto) 1 % (0-3) Basophils (%) (Auto) 0 % (0-3) Neutrophils # (Auto) 12.9 x10^3/uL (1.8-7.7) Lymphocytes # (Auto) 1.2 x10^3/uL (1.0-4.8) Monocytes # (Auto) 1.0 x10^3/uL (0.0-1.1) Eosinophils # (Auto) 0.2 x10^3/uL (0.0-0.7) Basophils # (Auto) 0.1 x10^3/uL (0.0-0.2) Sodium Level 143 mmol/L (136-145) Potassium Level 4.1 mmol/L (3.5-5.1) Chloride Level 107 mmol/L (98-107) Carbon Dioxide Level 32 mmol/L (21-32) Anion Gap 4 (6-14) Blood Urea Nitrogen 15 mg/dL (7-20) Creatinine 0.5 mg/dL (0.6-1.0) Estimated GFR (Cockcroft-Gault) 131.1 Glucose Level 151 mg/dL (70-99) Calcium Level 9.9 mg/dL (8.5-10.1) Test 10/28/19 06:07 10/28/19 18:00 10/29/19 00:38 10/29/19 06:10 Glucose (Fingerstick) 103 mg/dL (70-99) 138 mg/dL (70-99) 147 mg/dL (70-99) White Blood Count 16.0 x10^3/uL (4.0-11.0) Red Blood Count 2.99 x10^6/uL (3.50-5.40) Hemoglobin 8.8 g/dL (12.0-15.5) Hematocrit 26.6 % (36.0-47.0) Mean Corpuscular Volume 89 fL (79-100) Mean Corpuscular Hemoglobin 29 pg (25-35) Mean Corpuscular Hemoglobin Concent 33 g/dL (31-37) Red Cell Distribution Width 14.8 % (11.5-14.5) Platelet Count 728 x10^3/uL (140-400) Neutrophils (%) (Auto) 87 % (31-73) Lymphocytes (%) (Auto) 6 % (24-48) Monocytes (%) (Auto) 7 % (0-9) Eosinophils (%) (Auto) 1 % (0-3) Basophils (%) (Auto) 0 % (0-3) Neutrophils # (Auto) 13.9 x10^3/uL (1.8-7.7) Lymphocytes # (Auto) 0.9 x10^3/uL (1.0-4.8) Monocytes # (Auto) 1.0 x10^3/uL (0.0-1.1) Eosinophils # (Auto) 0.1 x10^3/uL (0.0-0.7) Basophils # (Auto) 0.0 x10^3/uL (0.0-0.2) Sodium Level 142 mmol/L (136-145) Potassium Level 4.7 mmol/L (3.5-5.1) Chloride Level 107 mmol/L (98-107) Carbon Dioxide Level 31 mmol/L (21-32) Anion Gap 4 (6-14) Blood Urea Nitrogen 13 mg/dL (7-20) Creatinine 0.5 mg/dL (0.6-1.0) Estimated GFR (Cockcroft-Gault) 131.1 Glucose Level 169 mg/dL (70-99) Calcium Level 9.4 mg/dL (8.5-10.1) Laboratory Tests Test 10/28/19 18:00 10/29/19 00:38 10/29/19 06:10 Glucose (Fingerstick) 138 mg/dL (70-99) 147 mg/dL (70-99) White Blood Count 16.0 x10^3/uL (4.0-11.0) Red Blood Count 2.99 x10^6/uL (3.50-5.40) Hemoglobin 8.8 g/dL (12.0-15.5) Hematocrit 26.6 % (36.0-47.0) Mean Corpuscular Volume 89 fL (79-100) Mean Corpuscular Hemoglobin 29 pg (25-35) Mean Corpuscular Hemoglobin Concent 33 g/dL (31-37) Red Cell Distribution Width 14.8 % (11.5-14.5) Platelet Count 728 x10^3/uL (140-400) Neutrophils (%) (Auto) 87 % (31-73) Lymphocytes (%) (Auto) 6 % (24-48) Monocytes (%) (Auto) 7 % (0-9) Eosinophils (%) (Auto) 1 % (0-3) Basophils (%) (Auto) 0 % (0-3) Neutrophils # (Auto) 13.9 x10^3/uL (1.8-7.7) Lymphocytes # (Auto) 0.9 x10^3/uL (1.0-4.8) Monocytes # (Auto) 1.0 x10^3/uL (0.0-1.1) Eosinophils # (Auto) 0.1 x10^3/uL (0.0-0.7) Basophils # (Auto) 0.0 x10^3/uL (0.0-0.2) Sodium Level 142 mmol/L (136-145) Potassium Level 4.7 mmol/L (3.5-5.1) Chloride Level 107 mmol/L (98-107) Carbon Dioxide Level 31 mmol/L (21-32) Anion Gap 4 (6-14) Blood Urea Nitrogen 13 mg/dL (7-20) Creatinine 0.5 mg/dL (0.6-1.0) Estimated GFR (Cockcroft-Gault) 131.1 Glucose Level 169 mg/dL (70-99) Calcium Level 9.4 mg/dL (8.5-10.1) Microbiology 10/18/19 Gram Stain - Final, Complete 10/18/19 Aerobic and Anaerobic Culture - Final, Complete 10/18/19 Antimicrobic Susceptibility - Final, Complete 10/16/19 Blood Culture - Final, Complete NO GROWTH AFTER 5 DAYS 10/03/19 Gram Stain - Final, Complete 10/03/19 Aerobic and Anaerobic Culture - Final, Complete 10/01/19 Gram Stain Evaluation - Final, Complete 10/01/19 Respiratory Culture - Final, Complete 10/01/19 Antimicrobic Susceptibility - Final, Complete 09/25/19 Urine Culture - Final, Complete 09/17/19 Gram Stain - Final, Complete 09/17/19 Aerobic Culture - Final, Complete Medications Current Medications Sodium Chloride 1,000 ml @ 1,000 mls/hr Q1H IV Last administered on 07/04/19at 03:00; Start 07/04/19 at 03:00; Stop 07/04/19 at 03:59; Status DC Ondansetron HCl (Zofran) 4 mg 1X ONCE IVP Last administered on 07/04/19at 03:27; Start 07/04/19 at 03:00; Stop 07/04/19 at 03:01; Status DC Morphine Sulfate (Morphine Sulfate) 4 mg 1X ONCE IV ; Start 07/04/19 at 03:00; Stop 07/04/19 at 03:01; Status Cancel Ketorolac Tromethamine (Toradol 30mg Vial) 30 mg 1X ONCE IV Last administered on 07/04/19at 02:54; Start 07/04/19 at 03:00; Stop 07/04/19 at 03:01; Status DC Fentanyl Citrate (Fentanyl 2ml Vial) 25 mcg 1X ONCE IVP Last administered on 07/04/19at 03:23; Start 07/04/19 at 03:30; Stop 07/04/19 at 03:31; Status DC Fentanyl Citrate (Fentanyl 2ml Vial) 100 mcg STK-MED ONCE .ROUTE ; Start 07/04/19 at 03:18; Stop 07/04/19 at 03:18; Status DC Iohexol (Omnipaque 350 Mg/ml) 90 ml 1X ONCE IV Last administered on 07/04/19at 03:25; Start 07/04/19 at 03:30; Stop 07/04/19 at 03:31; Status DC Info (CONTRAST GIVEN -- Rx MONITORING) 1 each PRN DAILY PRN MC SEE COMMENTS; Start 07/04/19 at 03:30; Stop 07/06/19 at 03:29; Status DC Hydromorphone HCl (Dilaudid) 0.5 mg 1X ONCE IV Last administered on 07/04/19at 03:55; Start 07/04/19 at 04:30; Stop 07/04/19 at 04:32; Status DC Ondansetron HCl (Zofran) 4 mg PRN Q8HRS PRN IV NAUSEA/VOMITING 1ST CHOICE; Start 07/04/19 at 05:00; Stop 07/04/19 at 09:27; Status DC Morphine Sulfate (Morphine Sulfate) 2 mg PRN Q2HR PRN IV SEVERE PAIN 7-10 Last administered on 07/05/19at 12:26; Start 07/04/19 at 05:00; Stop 07/05/19 at 14:15; Status DC Sodium Chloride 1,000 ml @ 125 mls/hr Q8H IV Last administered on 07/04/19at 20:56; Start 07/04/19 at 05:00; Stop 07/05/19 at 04:59; Status DC Hydromorphone HCl (Dilaudid) 0.5 mg PRN Q3HRS PRN IV SEVERE PAIN 7-10 Last administered on 07/05/19at 10:06; Start 07/04/19 at 05:00; Stop 07/05/19 at 12:0 1; Status DC Piperacillin Sod/ Tazobactam Sod 4.5 gm/Sodium Chloride 100 ml @ 200 mls/hr 1X ONCE IV Last administered on 07/04/19at 05:44; Start 07/04/19 at 06:00; Stop 07/04/19 at 06:29; Status DC Ondansetron HCl (Zofran) 4 mg PRN Q4HRS PRN IV NAUSEA/VOMITING 1ST CHOICE Last administered on 10/29/19at 01:30; Start 07/04/19 at 09:30 Insulin Human Lispro (HumaLOG) 0-9 UNITS Q6HRS SQ Last administered on 10/29/19at 06:17; Start 07/04/19 at 09:30 Dextrose (Dextrose 50%-Water Syringe) 12.5 gm PRN Q15MIN PRN IV SEE COMMENTS; Start 07/04/19 at 09:30 Pantoprazole Sodium (PROTONIX VIAL for IV PUSH) 40 mg DAILYAC IVP Last administered on 10/29/19at 08:03; Start 07/04/19 at 11:30 Prochlorperazine Edisylate (Compazine) 10 mg PRN Q6HRS PRN IV NAUSEA/VOMITING, 2nd CHOICE Last administered on 10/15/19at 10:53; Start 07/04/19 at 17:45 Atenolol (Tenormin) 100 mg DAILY PO ; Start 07/05/19 at 09:00; Stop 07/04/19 at 20:08; Status DC Metoprolol Tartrate (Lopressor Vial) 2.5 mg Q6HRS IVP Last administered on 07/05/19at 05:51; Start 07/04/19 at 20:15; Stop 07/05/19 at 10:02; Status DC Metoprolol Tartrate (Lopressor Vial) 5 mg Q6HRS IVP Last administered on 07/14/19at 00:12; Start 07/05/19 at 10:15; Stop 07/16/19 at 08:48; Status DC Hydromorphone HCl (Dilaudid) 1 mg PRN Q3HRS PRN IV SEVERE PAIN 7-10 Last administered on 07/11/19at 05:13; Start 07/05/19 at 12:00; Stop 07/19/19 at 00:25; Status DC Lidocaine HCl (Buffered Lidocaine 1%) 3 ml STK-MED ONCE .ROUTE ; Start 07/05/19 at 12:55; Stop 07/05/19 at 12:56; Status DC Albumin Human 500 ml @ 125 mls/hr 1X ONCE IV Last administered on 07/05/19at 14:33; Start 07/05/19 at 14:30; Stop 07/05/19 at 18:32; Status DC Norepinephrine Bitartrate 8 mg/ Dextrose 258 ml @ 17.299 mls/ hr CONT PRN IV PER PROTOCOL Last administered on 08/02/19at 12:48; Start 07/05/19 at 15:30; Stop 08/05/19 at 09:19; Status DC Sodium Chloride 1,000 ml @ 125 mls/hr Q8H IV Last administered on 07/05/19at 21:04; Start 07/05/19 at 16:00; Stop 07/06/19 at 02:42; Status DC Albumin Human 500 ml @ 125 mls/hr PRN BID PRN IV After every 2L NSS & BP < 90mm Last administered on 10/18/19at 16:06; Start 07/05/19 at 16:00; Stop 10/21/19 at 09:30; Status DC Iohexol (Omnipaque 300 Mg/ml) 60 ml 1X ONCE IV Last administered on 07/05/19at 17:20; Start 07/05/19 at 17:00; Stop 07/05/19 at 17:01; Status DC Info (CONTRAST GIVEN -- Rx MONITORING) 1 each PRN DAILY PRN MC SEE COMMENTS; Start 07/05/19 at 17:00; Stop 07/07/19 at 16:59; Status DC Meropenem 1 gm/ Sodium Chloride 100 ml @ 200 mls/hr Q8HRS IV Last administered on 07/06/19at 05:45; Start 07/05/19 at 20:00; Stop 07/06/19 at 08:48; Status DC Furosemide (Lasix) 40 mg 1X ONCE IVP Last administered on 07/05/19at 22:12; Start 07/05/19 at 22:30; Stop 07/05/19 at 22:31; Status DC Calcium Chloride 1000 mg/Sodium Chloride 110 ml @ 220 mls/hr 1X ONCE IV Last administered on 07/05/19at 22:11; Start 07/05/19 at 22:30; Stop 07/05/19 at 22:59; Status DC Albuterol Sulfate (Ventolin Neb Soln) 2.5 mg 1X ONCE NEB Last administered on 07/06/19at 00:56; Start 07/05/19 at 22:30; Stop 07/05/19 at 22:31; Status DC Insulin Human Regular (HumuLIN R VIAL) 5 unit 1X ONCE IV Last administered on 07/05/19at 22:14; Start 07/05/19 at 22:30; Stop 07/05/19 at 22:31; Status DC Magnesium Sulfate 50 ml @ 25 mls/hr 1X ONCE IV Last administered on 07/06/19at 02:57; Start 07/06/19 at 03:00; Stop 07/06/19 at 04:59; Status DC Calcium Gluconate 1000 mg/Sodium Chloride 110 ml @ 220 mls/hr 1X ONCE IV Last administered on 07/06/19at 02:46; Start 07/06/19 at 03:00; Stop 07/06/19 at 03:29; Status DC Sodium Chloride 1,000 ml @ 200 mls/hr Q5H IV Last administered on 07/06/19at 02:46; Start 07/06/19 at 03:00; Stop 07/06/19 at 10:21; Status DC Calcium Gluconate 1000 mg/Sodium Chloride 110 ml @ 220 mls/hr 1X ONCE IV Last administered on 07/06/19at 03:21; Start 07/06/19 at 03:30; Stop 07/06/19 at 03:59; Status DC Sodium Bicarbonate 50 meq/Sodium Chloride 1,050 ml @ 75 mls/hr Q14H IV Last administered on 07/10/19at 21:10; Start 07/06/19 at 07:30; Stop 07/11/19 at 10:28; Status DC Calcium Gluconate 2000 mg/Sodium Chloride 120 ml @ 220 mls/hr 1X ONCE IV Last administered on 07/06/19at 09:05; Start 07/06/19 at 07:30; Stop 07/06/19 at 08:02; Status DC Lidocaine HCl (Xylocaine-Mpf 1% 2ml Vial) 2 ml STK-MED ONCE .ROUTE ; Start 07/06/19 at 08:47; Stop 07/06/19 at 08:47; Status DC Meropenem 500 mg/ Sodium Chloride 50 ml @ 100 mls/hr Q12HR IV Last administered on 07/11/19at 21:01; Start 07/06/19 at 18:00; Stop 07/12/19 at 07:58; Status DC Lidocaine HCl (Buffered Lidocaine 1%) 3 ml STK-MED ONCE .ROUTE ; Start 07/06/19 at 09:46; Stop 07/06/19 at 09:46; Status DC Lidocaine HCl (Buffered Lidocaine 1%) 6 ml 1X ONCE INJ Last administered on 07/06/19at 10:26; Start 07/06/19 at 10:15; Stop 07/06/19 at 10:16; Status DC Info (Tpn Per Pharmacy) 1 each PRN DAILY PRN MC SEE COMMENTS Last administered on 10/28/19at 10:31; Start 07/06/19 at 12:00 Sodium Chloride 1,000 ml @ 1,000 mls/hr Q1H PRN IV hypotension; Start 07/06/19 at 12:07; Stop 07/06/19 at 18:06; Status DC Diphenhydramine HCl (Benadryl) 25 mg 1X PRN PRN IV ITCHING; Start 07/06/19 at 12:15; Stop 07/07/19 at 12:14; Status DC Diphenhydramine HCl (Benadryl) 25 mg 1X PRN PRN IV ITCHING; Start 07/06/19 at 12:15; Stop 07/07/19 at 12:14; Status DC Sodium Chloride 1,000 ml @ 400 mls/hr Q2H30M PRN IV PATENCY; Start 07/06/19 at 12:07; Stop 07/07/19 at 00:06; Status DC Info (PHARMACY MONITORING -- do not chart) 1 each PRN DAILY PRN MC SEE CO MMENTS; Start 07/06/19 at 12:15; Stop 07/08/19 at 08:13; Status DC Sodium Chloride 90 meq/Calcium Gluconate 10 meq/ Multivitamins 10 ml/Chromium/ Copper/Manganese/ Seleni/Zn 1 ml/ Total Parenteral Nutrition/Amino Acids/Dextrose/ Fat Emulsion Intravenous 55.005 ml @ 2.292 mls/hr TPN CONT IV ; Start 07/06/19 at 22:00; Stop 07/06/19 at 12:33; Status DC Info (Tpn Per Pharmacy) 1 each PRN DAILY PRN MC SEE COMMENTS; Start 07/06/19 at 12:30; Status UNV Sodium Chloride 90 meq/Calcium Gluconate 10 meq/ Multivitamins 10 ml/Chromium/ Copper/Manganese/ Seleni/Zn 0.5 ml/ Total Parenteral Nutrition/Amino Acids/Dextrose/ Fat Emulsion Intravenous 1,512 ml @ 63 mls/hr TPN CONT IV Last administered on 07/06/19at 22:06; Start 07/06/19 at 22:00; Stop 07/07/19 at 21:59; Status DC Calcium Carbonate/ Glycine (Tums) 500 mg PRN AFTMEALHC PRN PO INDIGESTION; Start 07/06/19 at 17:45; Stop 08/31/19 at 10:25; Status DC Calcium Gluconate (Calcium Gluconate) 2,000 mg 1X ONCE IVP Last administered on 07/07/19at 02:19; Start 07/07/19 at 02:15; Stop 07/07/19 at 02:16; Status DC Calcium Chloride 3000 mg/Sodium Chloride 1,030 ml @ 50 mls/hr [id number] IV Last administered on 07/09/19at 02:17; Start 07/07/19 at 08:00; Stop 07/09/19 at 15:23; Status DC Lorazepam (Ativan Inj) 1 mg PRN Q4HRS PRN IVP ANXIETY / AGITATION, 2nd choic Last administered on 08/05/19at 03:51; Start 07/07/19 at 09:00; Stop 08/05/19 at 09:19; Status DC Sodium Chloride 1,000 ml @ 1,000 mls/hr Q1H PRN IV hypotension; Start 07/07/19 at 08:56; Stop 07/07/19 at 14:55; Status DC Albumin Human 200 ml @ 200 mls/hr 1X PRN PRN IV Hypotension; Start 07/07/19 at 09:00; Stop 07/07/19 at 14:59; Status DC Diphenhydramine HCl (Benadryl) 25 mg 1X PRN PRN IV ITCHING; Start 07/07/19 at 09:00; Stop 07/08/19 at 08:59; Status DC Diphenhydramine HCl (Benadryl) 25 mg 1X PRN PRN IV ITCHING; Start 07/07/19 at 09:00; Stop 07/08/19 at 08:59; Status DC Sodium Chloride 1,000 ml @ 400 mls/hr Q2H30M PRN IV PATENCY; Start 07/07/19 at 08:56; Stop 07/07/19 at 20:55; Status DC Info (PHARMACY MONITORING -- do not chart) 1 each PRN DAILY PRN MC SEE COMMENTS; Start 07/07/19 at 09:00; Status UNV Info (PHARMACY MONITORING -- do not chart) 1 each PRN DAILY PRN MC SEE COMMENTS; Start 07/07/19 at 09:00; Stop 07/08/19 at 08:13; Status DC Digoxin (Lanoxin) 500 mcg 1X ONCE IV Last administered on 07/07/19at 10:04; Start 07/07/19 at 10:00; Stop 07/07/19 at 10:01; Status DC Digoxin (Lanoxin) 125 mcg 1X ONCE IV Last administered on 07/07/19at 17:10; Start 07/07/19 at 18:00; Stop 07/07/19 at 18:01; Status DC Magnesium Sulfate 100 ml @ 25 mls/hr 1X ONCE IV Last administered on 07/07/19at 12:48; Start 07/07/19 at 13:00; Stop 07/07/19 at 16:59; Status DC Sodium Chloride 90 meq/Magnesium Sulfate 10 meq/ Calcium Gluconate 20 meq/ Multivitamins 10 ml/Chromium/ Copper/Manganese/ Seleni/Zn 0.5 ml/ Total Parenteral Nutrition/Amino Acids/Dextrose/ Fat Emulsion Intravenous 1,512 ml @ 63 mls/hr TPN CONT IV Last administered on 07/07/19at 22:25; Start 07/07/19 at 22:00; Stop 07/08/19 at 21:59; Status DC Sodium Chloride 1,000 ml @ 1,000 mls/hr Q1H PRN IV hypotension; Start 07/08/19 at 08:05; Stop 07/08/19 at 14:04; Status DC Albumin Human 200 ml @ 200 mls/hr 1X ONCE IV Last administered on 07/08/19at 08:57; Start 07/08/19 at 08:15; Stop 07/08/19 at 09:14; Status DC Diphenhydramine HCl (Benadryl) 25 mg 1X PRN PRN IV ITCHING; Start 07/08/19 at 08:15; Stop 07/09/19 at 08:14; Status DC Diphenhydramine HCl (Benadryl) 25 mg 1X PRN PRN IV ITCHING; Start 07/08/19 at 08:15; Stop 07/09/19 at 08:14; Status DC Sodium Chloride 1,000 ml @ 400 mls/hr Q2H30M PRN IV PATENCY; Start 07/08/19 at 08:05; Stop 07/08/19 at 20:04; Status DC Info (PHARMACY MONITORING -- do not chart) 1 each PRN DAILY PRN MC SEE COMMENTS; Start 07/08/19 at 08:15; Stop 07/12/19 at 07:57; Status DC Sodium Chloride 90 meq/Potassium Chloride 15 meq/ Potassium Phosphate 10 mmol/ Magnesium Sulfate 10 meq/Calcium Gluconate 20 meq/ Multivitamins 10 ml/Chromium/ Copper/Manganese/ Seleni/Zn 0.5 ml/ Total Parenteral Nutrition/Amino Acids/Dextrose/ Fat Emulsion Intravenous 1,512 ml @ 63 mls/hr TPN CONT IV Last administered on 07/08/19at 21:01; Start 07/08/19 at 22:00; Stop 07/09/19 at 21:59; Status DC Potassium Chloride/Water 100 ml @ 100 mls/hr 1X ONCE IV Last administered on 07/08/19at 14:09; Start 07/08/19 at 14:00; Stop 07/08/19 at 14:59; Status DC Benzocaine (Hurricaine One) 1 spray 1X ONCE MM Last administered on 07/08/19at 16:38; Start 07/08/19 at 14:30; Stop 07/08/19 at 14:31; Status DC Lidocaine HCl (Glydo (Lidocaine) Jelly) 1 ramu 1X ONCE MM Last administered on 07/08/19at 16:38; Start 07/08/19 at 14:30; Stop 07/08/19 at 14:31; Status DC Linezolid/Dextrose 300 ml @ 300 mls/hr Q12HR IV Last administered on 07/14/19at 21:04; Start 07/08/19 at 20:00; Stop 07/15/19 at 07:50; Status DC Acetaminophen (Tylenol) 650 mg PRN Q6HRS PRN PO MILD PAIN / TEMP; Start 07/09/19 at 03:30; Stop 07/09/19 at 03:36; Status DC Acetaminophen (Tylenol) 650 mg PRN Q6HRS PRN PEG MILD PAIN / TEMP Last administered on 08/04/19at 19:56; Start 07/09/19 at 03:36; Stop 08/31/19 at 10:25; Status DC Sodium Chloride 1,000 ml @ 1,000 mls/hr Q1H PRN IV hypotension; Start 07/09/19 at 07:50; Stop 07/09/19 at 13:49; Status DC Albumin Human 200 ml @ 200 mls/hr 1X PRN PRN IV Hypotension; Start 07/09/19 at 08:00; Stop 07/09/19 at 13:59; Status DC Sodium Chloride (Normal Saline Flush) 10 ml 1X PRN PRN IV AP catheter pack; Start 07/09/19 at 08:00; Stop 07/10/19 at 07:59; Status DC Sodium Chloride (Normal Saline Flush) 10 ml 1X PRN PRN IV KST OPERATOR catheter pack; Start 07/09/19 at 08:00; Stop 07/10/19 at 07:59; Status DC Sodium Chloride 1,000 ml @ 400 mls/hr Q2H30M PRN IV PATENCY; Start 07/09/19 at 07:50; Stop 07/09/19 at 19:49; Status DC Info (PHARMACY MONITORING -- do not chart) 1 each PRN DAILY PRN MC SEE COMMENTS; Start 07/09/19 at 08:00; Status UNV Info (PHARMACY MONITORING -- do not chart) 1 each PRN DAILY PRN MC SEE COMMENTS; Start 07/09/19 at 08:00; Stop 07/11/19 at 08:25; Status DC Sodium Chloride 90 meq/Potassium Chloride 15 meq/ Potassium Phosphate 10 mmol/ Magnesium Sulfate 10 meq/Calcium Gluconate 20 meq/ Multivitamins 10 ml/Chromium/ Copper/Manganese/ Seleni/Zn 0.5 ml/ Total Parenteral Nutrition/Amino Acids/Dextrose/ Fat Emulsion Intravenous 1,512 ml @ 63 mls/hr TPN CONT IV Last administered on 07/09/19at 20:57; Start 07/09/19 at 22:00; Stop 07/10/19 at 21:59; Status DC Sodium Chloride 90 meq/Potassium Chloride 15 meq/ Potassium Phosphate 15 mmol/ Magnesium Sulfate 10 meq/Calcium Gluconate 20 meq/ Multivitamins 10 ml/Chromium/ Copper/Manganese/ Seleni/Zn 0.5 ml/ Total Parenteral Nutrition/Amino Acids/Dextrose/ Fat Emulsion Intravenous 1,512 ml @ 63 mls/hr TPN CONT IV ; Start 07/10/19 at 22:00; Stop 07/10/19 at 14:16; Status DC Sodium Chloride 90 meq/Potassium Chloride 15 meq/ Potassium Phosphate 15 mmol/ Magnesium Sulfate 10 meq/Calcium Gluconate 20 meq/ Multivitamins 10 ml/Chromium/ Copper/Manganese/ Seleni/Zn 0.5 ml/ Total Parenteral Nutrition/Amino Acids/Dextrose/ Fat Emulsion Intravenous 1,200 ml @ 50 mls/hr TPN CONT IV ; Start 07/10/19 at 22:00; Stop 07/10/19 at 14:17; Status DC Sodium Chloride 90 meq/Potassium Chloride 15 meq/ Potassium Phosphate 10 mmol/ Magnesium Sulfate 10 meq/Calcium Gluconate 20 meq/ Multivitamins 10 ml/Chromium/ Copper/Manganese/ Seleni/Zn 0.5 ml/ Total Parenteral Nutrition/Amino Ac ids/Dextrose/ Fat Emulsion Intravenous 1,200 ml @ 50 mls/hr TPN CONT IV Last administered on 07/10/19at 23:29; Start 07/10/19 at 22:00; Stop 07/11/19 at 21:59; Status DC Sodium Chloride 1,000 ml @ 1,000 mls/hr Q1H PRN IV hypotension; Start 07/11/19 at 07:28; Stop 07/11/19 at 13:27; Status DC Albumin Human 200 ml @ 200 mls/hr 1X ONCE IV Last administered on 07/11/19at 08:51; Start 07/11/19 at 07:30; Stop 07/11/19 at 08:29; Status DC Diphenhydramine HCl (Benadryl) 25 mg 1X PRN PRN IV ITCHING; Start 07/11/19 at 07:30; Stop 07/12/19 at 07:29; Status DC Diphenhydramine HCl (Benadryl) 25 mg 1X PRN PRN IV ITCHING; Start 07/11/19 at 07:30; Stop 07/12/19 at 07:29; Status DC Sodium Chloride 1,000 ml @ 400 mls/hr Q2H30M PRN IV PATENCY; Start 07/11/19 at 07:28; Stop 07/11/19 at 19:27; Status DC Info (PHARMACY MONITORING -- do not chart) 1 each PRN DAILY PRN MC SEE COMMENTS; Start 07/11/19 at 07:30; Stop 07/22/19 at 13:01; Status DC Metronidazole 100 ml @ 100 mls/hr Q6HRS IV Last administered on 07/27/19at 06:26; Start 07/11/19 at 08:30; Stop 07/27/19 at 09:58; Status DC Micafungin Sodium 100 mg/Dextrose 100 ml @ 100 mls/hr Q24H IV Last administered on 08/18/19at 08:18; Start 07/11/19 at 09:00; Stop 08/18/19 at 20:58; Status DC Propofol 0 ml @ As Directed STK-MED ONCE IV ; Start 07/11/19 at 07:53; Stop 07/11/19 at 07:53; Status DC Etomidate (Amidate) 20 mg STK-MED ONCE IV ; Start 07/11/19 at 07:53; Stop 07/11/19 at 07:54; Status DC Midazolam HCl (Versed) 5 mg STK-MED ONCE .ROUTE ; Start 07/11/19 at 07:57; Stop 07/11/19 at 07:57; Status DC Fentanyl Citrate 30 ml @ 0 mls/hr CONT PRN IV SEE PROTOCOL Last administered on 08/05/19at 06:12; Start 07/11/19 at 08:15; Stop 08/05/19 at 09:19; Status DC Artificial Tears (Artificial Tears) 1 drop PRN Q1HR PRN OU DRY EYE, 1st choice; Start 07/11/19 at 08:15; Stop 08/17/19 at 05:31; Status DC Midazolam HCl 50 mg/Sodium Chloride 50 ml @ 0 mls/hr CONT PRN IV SEE PROTOCOL Last administered on 07/14/19at 22:39; Start 07/11/19 at 08:15; Stop 07/16/19 at 15:59; Status DC Etomidate (Amidate) 8 mg 1X ONCE IV Last administered on 07/11/19at 08:33; Start 07/11/19 at 08:30; Stop 07/11/19 at 08:31; Status DC Succinylcholine Chloride (Anectine) 120 mg 1X ONCE IV Last administered on 07/11/19at 08:34; Start 07/11/19 at 08:30; Stop 07/11/19 at 08:31; Status DC Midazolam HCl (Versed) 5 mg 1X ONCE IV ; Start 07/11/19 at 08:30; Stop 07/11/19 at 08:31; Status DC Potassium Chloride 15 meq/ Bicarbonate Dialysis Soln w/ out KCl 5,007.5 ml @ 1,000 mls/ hr Q5H1M IV Last administered on 07/12/19at 11:11; Start 07/11/19 at 12:00; Stop 07/12/19 at 11:15; Status DC Potassium Chloride 15 meq/ Bicarbonate Dialysis Soln w/ out KCl 5,007.5 ml @ 1,000 mls/ hr Q5H1M IV Last administered on 07/12/19at 11:12; Start 07/11/19 at 12:00; Stop 07/12/19 at 11:17; Status DC Potassium Chloride 15 meq/ Bicarbonate Dialysis Soln w/ out KCl 5,007.5 ml @ 1,000 mls/ hr Q5H1M IV Last administered on 07/12/19at 11:11; Start 07/11/19 at 12:00; Stop 07/12/19 at 11:19; Status DC Sodium Chloride 90 meq/Potassium Chloride 15 meq/ Potassium Phosphate 10 mmol/ Magnesium Sulfate 10 meq/Calcium Gluconate 20 meq/ Multivitamins 10 ml/Chromium/ Copper/Manganese/ Seleni/Zn 0.5 ml/ Total Parenteral Nutrition/Amino Acids/Dextrose/ Fat Emulsion Intravenous 1,400 ml @ 58.333 mls/ hr TPN CONT IV Last administered on 07/11/19at 21:42; Start 07/11/19 at 22:00; Stop 07/12/19 at 21:59; Status DC Heparin Sodium (Porcine) (Heparin Sodium) 5,000 unit Q8HRS SQ Last administered on 07/16/19at 05:55; Start 07/11/19 at 15:00; Stop 07/16/19 at 13:28; Status DC Meropenem 500 mg/ Sodium Chloride 50 ml @ 100 mls/hr Q6HRS IV Last administered on 07/13/19at 06:00; Start 07/12/19 at 09:00; Stop 07/13/19 at 07:29; Status DC Potassium Phosphate 20 mmol/ Sodium Chloride 106.6667 ml @ 51.667 m... 1X ONCE IV Last administered on 07/12/19at 11:22; Start 07/12/19 at 10:15; Stop 07/12/19 at 12:18; Status DC Acetaminophen (Tylenol Supp) 650 mg PRN Q6HRS PRN DC MILD PAIN / TEMP > 100.3'F Last administered on 10/17/19at 18:16; Start 07/12/19 at 10:30 Potassium Chloride/Water 100 ml @ 100 mls/hr Q1H IV Last administered on 07/12/19at 12:12; Start 07/12/19 at 11:00; Stop 07/12/19 at 12:59; Status DC Potassium Chloride 20 meq/ Bicarbonate Dialysis Soln w/ out KCl 5,010 ml @ 1,000 mls/hr Q5H1M IV Last administered on 07/13/19at 08:48; Start 07/12/19 at 12:00; Stop 07/13/19 at 13:03; Status DC Potassium Chloride 20 meq/ Bicarbonate Dialysis Soln w/ out KCl 5,010 ml @ 1,000 mls/hr Q5H1M IV Last administered on 07/17/19at 14:52; Start 07/12/19 at 11:30; Stop 07/17/19 at 19:59; Status DC Potassium Chloride 20 meq/ Bicarbonate Dialysis Soln w/ out KCl 5,010 ml @ 1,000 mls/hr Q5H1M IV Last administered on 07/17/19at 14:53; Start 07/12/19 at 11:30; Stop 07/17/19 at 19:59; Status DC Sodium Chloride 90 meq/Potassium Chloride 15 meq/ Potassium Phosphate 15 mmol/ Magnesium Sulfate 10 meq/Calcium Gluconate 15 meq/ Multivitamins 10 ml/Chromium/ Copper/Manganese/ Seleni/Zn 0.5 ml/ Total Parenteral Nutrition/Amino Acids/Dextrose/ Fat Emulsion Intravenous 1,400 ml @ 58.333 mls/ hr TPN CONT IV Last administered on 07/12/19at 22:17; Start 07/12/19 at 22:00; Stop 07/13/19 at 21:59; Status DC Cefepime HCl (Maxipime) 2 gm Q12HR IVP Last administered on 07/26/19at 20:56; Start 07/13/19 at 09:00; Stop 07/27/19 at 09:58; Status DC Daptomycin 500 mg/ Sodium Chloride 50 ml @ 100 mls/hr Q48H IV Last administered on 07/29/19at 09:57; Start 07/13/19 at 08:30; Stop 07/29/19 at 10:07; Status DC Lidocaine HCl (Buffered Lidocaine 1%) 3 ml 1X ONCE INJ Last administered on 07/13/19at 10:27; Start 07/13/19 at 10:30; Stop 07/13/19 at 10:31; Status DC Potassium Phosphate 20 mmol/ Sodium Chloride 106.6667 ml @ 51.667 m... 1X ONCE IV Last administered on 07/13/19at 12:51; Start 07/13/19 at 13:00; Stop 07/13/19 at 15:03; Status DC Sodium Chloride 90 meq/Potassium Chloride 15 meq/ Potassium Phosphate 18 mmol/ Magnesium Sulfate 8 meq/Calcium Gluconate 15 meq/ Multivitamins 10 ml/Chromium/ Copper/Manganese/ Seleni/Zn 0.5 ml/ Total Parenteral Nutrition/Amino Acids/Dextrose/ Fat Emulsion Intravenous 1,400 ml @ 58.333 mls/ hr TPN CONT IV Last administered on 07/13/19at 22:16; Start 07/13/19 at 22:00; Stop 07/14/19 at 21:59; Status DC Potassium Chloride 20 meq/ Bicarbonate Dialysis Soln w/ out KCl 5,010 ml @ 1,000 mls/hr Q5H1M IV Last administered on 07/17/19at 14:54; Start 07/13/19 at 16:00; Stop 07/17/19 at 19:59; Status DC Multi-Ingred Cream/Lotion/Oil/ Oint (Artificial Tears Eye Ointment) 1 ramu PRN Q1HR PRN OU DRY EYE, 2nd choice Last administered on 08/01/19at 08:19; Start 07/13/19 at 17:30; Stop 09/21/19 at 14:39; Status DC Sodium Chloride 90 meq/Potassium Chloride 15 meq/ Potassium Phosphate 18 mmol/ Magnesium Sulfate 8 meq/Calcium Gluconate 15 meq/ Multivitamins 10 ml/Chromium/ Copper/Manganese/ Seleni/Zn 0.5 ml/ Total Parenteral Nutrition/Amino Acids/Dextrose/ Fat Emulsion Intravenous 1,400 ml @ 58.333 mls/ hr TPN CONT IV Last administered on 07/14/19at 22:00; Start 07/14/19 at 22:00; Stop 07/15/19 at 21:59; Status DC Albumin Human 500 ml @ 125 mls/hr 1X ONCE IV ; Start 07/14/19 at 14:15; Stop 07/14/19 at 18:14; Status DC Sodium Chloride 90 meq/Potassium Chloride 15 meq/ Potassium Phosphate 18 mmol/ M agnesium Sulfate 8 meq/Calcium Gluconate 15 meq/ Multivitamins 10 ml/Chromium/ Copper/Manganese/ Seleni/Zn 0.5 ml/ Insulin Human Regular 10 unit/ Total Parenteral Nutrition/Amino Acids/Dextrose/ Fat Emulsion Intravenous 1,400 ml @ 58.333 mls/ hr TPN CONT IV Last administered on 07/15/19at 21:43; Start 07/15/19 at 22:00; Stop 07/16/19 at 21:59; Status DC Lidocaine HCl (Buffered Lidocaine 1%) 3 ml STK-MED ONCE .ROUTE ; Start 07/13/19 at 10:00; Stop 07/15/19 at 13:57; Status DC Midazolam HCl 100 mg/Sodium Chloride 100 ml @ 7 mls/hr CONT PRN IV SEE PROTOCOL Last administered on 07/27/19at 15:35; Start 07/16/19 at 16:00; Stop 09/21/19 at 14:38; Status DC Sodium Chloride 90 meq/Potassium Chloride 15 meq/ Potassium Phosphate 18 mmol/ Magnesium Sulfate 8 meq/Calcium Gluconate 15 meq/ Multivitamins 10 ml/Chromium/ Copper/Manganese/ Seleni/Zn 0.5 ml/ Insulin Human Regular 15 unit/ Total Par enteral Nutrition/Amino Acids/Dextrose/ Fat Emulsion Intravenous 1,400 ml @ 58.333 mls/ hr TPN CONT IV Last administered on 07/16/19at 20:34; Start 07/16/19 at 22:00; Stop 07/17/19 at 21:59; Status DC Info (Icu Electrolyte Protocol) 1 ea CONT PRN PRN MC PER PROTOCOL; Start 07/17/19 at 13:15 Sodium Chloride 90 meq/Potassium Chloride 15 meq/ Potassium Phosphate 18 mmol/ Magnesium Sulfate 8 meq/Calcium Gluconate 15 meq/ Multivitamins 10 ml/Chromium/ Copper/Manganese/ Seleni/Zn 0.5 ml/ Insulin Human Regular 15 unit/ Total Parenteral Nutrition/Amino Acids/Dextrose/ Fat Emulsion Intravenous 1,400 ml @ 58.333 mls/ hr TPN CONT IV Last administered on 07/17/19at 22:05; Start 07/17/19 at 22:00; Stop 07/18/19 at 21:59; Status DC Potassium Chloride 15 meq/ Bicarbonate Dialysis Soln w/ out KCl 5,007.5 ml @ 1,000 mls/ hr Q5H1M IV Last administered on 07/20/19at 18:14; Start 07/17/19 at 20:00; Stop 07/21/19 at 13:08; Status DC Potassium Chloride 15 meq/ Bicarbonate Dialysis Soln w/ out KCl 5,007.5 ml @ 1,000 mls/ hr Q5H1M IV Last administered on 07/20/19at 18:14; Start 07/17/19 at 20:00; Stop 07/21/19 at 13:08; Status DC Potassium Chloride 15 meq/ Bicarbonate Dialysis Soln w/ out KCl 5,007.5 ml @ 1,000 mls/ hr Q5H1M IV Last administered on 07/20/19at 18:14; Start 07/17/19 at 20:00; Stop 07/21/19 at 13:08; Status DC Iohexol (Omnipaque 240 Mg/ml) 30 ml 1X ONCE PO Last administered on 07/18/19at 11:30; Start 07/18/19 at 11:30; Stop 07/18/19 at 11:33; Status DC Info (CONTRAST GIVEN -- Rx MONITORING) 1 each PRN DAILY PRN MC SEE COMMENTS; Start 07/18/19 at 11:45; Stop 07/20/19 at 11:44; Status DC Sodium Chloride 90 meq/Potassium Chloride 15 meq/ Potassium Phosphate 18 mmol/ Magnesium Sulfate 8 meq/Calcium Gluconate 15 meq/ Multivitamins 10 ml/Chromium/ Copper/Manganese/ Seleni/Zn 0.5 ml/ Insulin Human Regular 15 unit/ Total Parenteral Nutrition/Amino Acids/Dextrose/ Fat Emulsion Intravenous 1,400 ml @ 58.333 mls/ hr TPN CONT IV Last administered on 07/18/19at 21:47; Start 07/18/19 at 22:00; Stop 07/19/19 at 21:59; Status DC Sodium Chloride 90 meq/Potassium Chloride 15 meq/ Potassium Phosphate 18 mmol/ Magnesium Sulfate 8 meq/Calcium Gluconate 15 meq/ Multivitamins 10 ml/Chromium/ Copper/Manganese/ Seleni/Zn 0.5 ml/ Insulin Human Regular 20 unit/ Total Parenteral Nutrition/Amino Acids/Dextrose/ Fat Emulsion Intravenous 1,400 ml @ 58.333 mls/ hr TPN CONT IV Last administered on 07/19/19at 21:36; Start 07/19/19 at 22:00; Stop 07/20/19 at 21:59; Status DC Alteplase, Recombinant (Cathflo For Central Catheter Clearance) 1 mg 1X ONCE INT CAT Last administered on 07/19/19at 20:03; Start 07/19/19 at 19:30; Stop 07/19/19 at 19:46; Status DC Alteplase, Recombinant (Cathflo For Central Catheter Clearance) 1 mg 1X ONCE INT CAT Last administered on 07/19/19at 22:05; Start 07/19/19 at 22:00; Stop 07/19/19 at 22:01; Status DC Sodium Chloride 90 meq/Potassium Chloride 15 meq/ Potassium Phosphate 18 mmol/ Magnesium Sulfate 8 meq/Calcium Gluconate 15 meq/ Multivitamins 10 ml/Chromium/ Copper/Manganese/ Seleni/Zn 0.5 ml/ Insulin Human Regular 20 unit/ Total Parenteral Nutrition/Amino Acids/Dextrose/ Fat Emulsion Intravenous 1,400 ml @ 58.333 mls/ hr TPN CONT IV Last administered on 07/20/19at 21:30; Start 07/20/19 at 22:00; Stop 07/21/19 at 21:59; Status DC Dexmedetomidine HCl 400 mcg/ Sodium Chloride 100 ml @ 0 mls/hr CONT PRN IV ANXIETY / AGITATION Last administered on 09/17/19at 12:57; Start 07/21/19 at 08:15; Stop 09/17/19 at 18:31; Status DC Sodium Chloride 500 ml @ 500 mls/hr 1X PRN PRN IV ELEVATED BP, SEE COMMENTS; Start 07/21/19 at 08:15 Atropine Sulfate (ATROPINE 0.5mg SYRINGE) 0.5 mg PRN Q5MIN PRN IV SEE COMMENTS; Start 07/21/19 at 08:15 Furosemide (Lasix) 20 mg 1X ONCE IVP Last administered on 07/21/19at 08:19; Start 07/21/19 at 08:15; Stop 07/21/19 at 08:16; Status DC Lidocaine HCl (Buffered Lidocaine 1%) 3 ml STK-MED ONCE .ROUTE ; Start 07/21/19 at 08:39; Stop 07/21/19 at 08:39; Status DC Lidocaine HCl (Buffered Lidocaine 1%) 6 ml 1X ONCE INJ Last administered on 07/21/19at 09:05; Start 07/21/19 at 09:00; Stop 07/21/19 at 09:06; Status DC Sodium Chloride 90 meq/Potassium Chloride 15 meq/ Potassium Phosphate 18 mmol/ Magnesium Sulfate 8 meq/Calcium Gluconate 15 meq/ Multivitamins 10 ml/Chromium/ Copper/Manganese/ Seleni/Zn 0.5 ml/ Insulin Human Regular 20 unit/ Total Parenteral Nutrition/Amino Acids/Dextrose/ Fat Emulsion Intravenous 1,400 ml @ 58.333 mls/ hr TPN CONT IV Last administered on 07/21/19at 22:45; Start 07/21/19 at 22:00; Stop 07/22/19 at 21:59; Status DC Sodium Chloride 1,000 ml @ 1,000 mls/hr Q1H PRN IV hypotension; Start 07/22/19 at 07:30; Stop 07/22/19 at 13:29; Status DC Albumin Human 200 ml @ 200 mls/hr 1X PRN PRN IV Hypotension Last administered on 07/22/19at 09:36; Start 07/22/19 at 07:30; Stop 07/22/19 at 13:29; Status DC Sodium Chloride (Normal Saline Flush) 10 ml 1X PRN PRN IV AP catheter pack; Start 07/22/19 at 07:30; Stop 07/22/19 at 21:29; Status DC Sodium Chloride (Normal Saline Flush) 10 ml 1X PRN PRN IV KST OPERATOR catheter pack; Start 07/22/19 at 07:30; Stop 07/23/19 at 07:29; Status DC Sodium Chloride 1,000 ml @ 400 mls/hr Q2H30M PRN IV PATENCY; Start 07/22/19 at 07:30; Stop 07/22/19 at 19:29; Status DC Info (PHARMACY MONITORING -- do not chart) 1 each PRN DAILY PRN MC SEE COMMENTS; Start 07/22/19 at 07:30; Stop 07/22/19 at 13:02; Status DC Info (PHARMACY MONITORING -- do not chart) 1 each PRN DAILY PRN MC SEE COMMENTS; Start 07/22/19 at 07:30; Stop 07/24/19 at 12:45; Status DC Sodium Chloride 90 meq/Potassium Chloride 15 meq/ Potassium Phosphate 10 mmol/ Magnesium Sulfate 8 meq/Calcium Gluconate 15 meq/ Multivitamins 10 ml/Chromium/ Copper/Manganese/ Seleni/Zn 0.5 ml/ Insulin Human Regular 25 unit/ Total Parenteral Nutrition/Amino Acids/Dextrose/ Fat Emulsion Intravenous 1,400 ml @ 58.333 mls/ hr TPN CONT IV Last administered on 07/22/19at 22:19; Start 07/22/19 at 22:00; Stop 07/23/19 at 21:59; Status DC Heparin Sodium (Porcine) (Heparin Sodium) 5,000 unit Q12HR SQ Last administered on 08/14/19at 08:59; Start 07/22/19 at 21:00; Stop 08/14/19 at 10:05; Status DC Ondansetron HCl (Zofran) 4 mg PRN Q6HRS PRN IV NAUSEA/VOMITING; Start 07/25/19 at 07:00; Stop 07/26/19 at 06:59; Status DC Fentanyl Citrate (Fentanyl 2ml Vial) 25 mcg PRN Q5MIN PRN IV MILD PAIN 1-3; Start 07/25/19 at 07:00; Stop 07/26/19 at 06:59; Status DC Fentanyl Citrate (Fentanyl 2ml Vial) 50 mcg PRN Q5MIN PRN IV MODERATE TO SEVERE PAIN; Start 07/25/19 at 07:00; Stop 07/26/19 at 06:59; Status DC Ringer's Solution 1,000 ml @ 30 mls/hr Q24H IV ; Start 07/25/19 at 07:00; Stop 07/25/19 at 18:59; Status DC Lidocaine HCl (Xylocaine-Mpf 1% 2ml Vial) 2 ml PRN 1X PRN ID PRIOR TO IV START; Start 07/25/19 at 07:00; Stop 07/26/19 at 06:59; Status DC Prochlorperazine Edisylate (Compazine) 5 mg PACU PRN PRN IV NAUSEA, MRX1; Start 07/25/19 at 07:00; Stop 07/26/19 at 06:59; Status DC Sodium Chloride 1,000 ml @ 1,000 mls/hr Q1H PRN IV hypotension; Start 07/23/19 at 09:10; Stop 07/23/19 at 15:09; Status DC Albumin Human 200 ml @ 200 mls/hr 1X PRN PRN IV Hypotension Last administered on 07/23/19at 10:10; Start 07/23/19 at 09:15; Stop 07/23/19 at 15:14; Status DC Sodium Chloride 1,000 ml @ 400 mls/hr Q2H30M PRN IV PATENCY; Start 07/23/19 at 09:10; Stop 07/23/19 at 21:09; Status DC Info (PHARMACY MONITORING -- do not chart) 1 each PRN DAILY PRN MC SEE COMMENTS; Start 07/23/19 at 09:15; Stop 07/24/19 at 12:45; Status DC Info (PHARMACY MONITORING -- do not chart) 1 each PRN DAILY PRN MC SEE COMMENTS; Start 07/23/19 at 09:15; Stop 07/24/19 at 12:45; Status DC Sodium Chloride 90 meq/Potassium Chloride 15 meq/ Potassium Phosphate 10 mmol/ Magnesium Sulfate 8 meq/Calcium Gluconate 15 meq/ Multivitamins 10 ml/Chromium/ Copper/Manganese/ Seleni/Zn 0.5 ml/ Insulin Human Regular 25 unit/ Total Parenteral Nutrition/Amino Acids/Dextrose/ Fat Emulsion Intravenous 1,400 ml @ 58.333 mls/ hr TPN CONT IV Last administered on 07/23/19at 22:10; Start 07/23/19 at 22:00; Stop 07/24/19 at 21:59; Status DC Magnesium Sulfate 50 ml @ 25 mls/hr PRN DAILY PRN IV for Mag < 1.7 on am labs Last administered on 10/06/19at 10:57; Start 07/24/19 at 09:15 Sodium Chloride 90 meq/Potassium Chloride 15 meq/ Potassium Phosphate 10 mmol/ Magnesium Sulfate 8 meq/Calcium Gluconate 15 meq/ Multivitamins 10 ml/Chromium/ Copper/Manganese/ Seleni/Zn 0.5 ml/ Insulin Human Regular 25 unit/ Total Parenteral Nutrition/Amino Acids/Dextrose/ Fat Emulsion Intravenous 1,400 ml @ 58.333 mls/ hr TPN CONT IV Last administered on 07/24/19at 21:20; Start 07/24/19 at 22:00; Stop 07/25/19 at 21:59; Status DC Sodium Chloride 1,000 ml @ 1,000 mls/hr Q1H PRN IV hypotension; Start 07/24/19 at 12:23; Stop 07/24/19 at 18:22; Status DC Albumin Human 200 ml @ 200 mls/hr 1X ONCE IV Last administered on 07/24/19at 13:34; Start 07/24/19 at 12:30; Stop 07/24/19 at 13:29; Status DC Diphenhydramine HCl (Benadryl) 25 mg 1X PRN PRN IV ITCHING; Start 07/24/19 at 12:30; Stop 07/25/19 at 12:29; Status DC Diphenhydramine HCl (Benadryl) 25 mg 1X PRN PRN IV ITCHING; Start 07/24/19 at 12:30; Stop 07/25/19 at 12:29; Status DC Info (PHARMACY MONITORING -- do not chart) 1 each PRN DAILY PRN MC SEE COMMENTS; Start 07/24/19 at 12:30; Status Cancel Bupivacaine HCl/ Epinephrine Bitart (Sensorcain-Epi 0.5%-1:[id number] Mpf) 30 ml STK-MED ONCE .ROUTE Last administered on 07/25/19at 11:44; Start 07/25/19 at 11:00; Stop 07/25/19 at 11:01; Status DC Cellulose (Surgicel Fibrillar 1x2) 1 each STK-MED ONCE .ROUTE ; Start 07/25/19 at 11:00; Stop 07/25/19 at 11:01; Status DC Sodium Chloride 90 meq/Potassium Chloride 15 meq/ Potassium Phosphate 10 mmol/ Magnesium Sulfate 12 meq/Calcium Gluconate 15 meq/ Multivitamins 10 ml/Chromium/ Copper/Manganese/ Seleni/Zn 0.5 ml/ Insulin Human Regular 25 unit/ Total Parenteral Nutrition/Amino Acids/Dextrose/ Fat Emulsion Intravenous 1,400 ml @ 58.333 mls/ hr TPN CONT IV Last administered on 07/25/19at 22:24; Start 07/25/19 at 22:00; Stop 07/26/19 at 21:59; Status DC Propofol 20 ml @ As Directed STK-MED ONCE IV ; Start 07/25/19 at 11:07; Stop 07/25/19 at 11:07; Status DC Cellulose (Surgicel Hemostat 4x8) 1 each STK-MED ONCE .ROUTE Last administered on 07/25/19at 11:44; Start 07/25/19 at 11:55; Stop 07/25/19 at 11:56; Status DC Sevoflurane (Ultane) 60 ml STK-MED ONCE IH ; Start 07/25/19 at 12:46; Stop 07/25/19 at 12:46; Status DC Sodium Chloride 1,000 ml @ 1,000 mls/hr Q1H PRN IV hypotension; Start 07/25/19 at 13:51; Stop 07/25/19 at 19:50; Status DC Albumin Human 200 ml @ 200 mls/hr 1X PRN PRN IV Hypotension Last administered on 07/25/19at 14:51; Start 07/25/19 at 14:00; Stop 07/25/19 at 19:59; Status DC Diphenhydramine HCl (Benadryl) 25 mg 1X PRN PRN IV ITCHING; Start 07/25/19 at 14:00; Stop 07/26/19 at 13:59; Status DC Diphenhydramine HCl (Benadryl) 25 mg 1X PRN PRN IV ITCHING; Start 07/25/19 at 14:00; Stop 07/26/19 at 13:59; Status DC Sodium Chloride 1,000 ml @ 400 mls/hr Q2H30M PRN IV PATENCY; Start 07/25/19 at 13:51; Stop 07/26/19 at 01:50; Status DC Info (PHARMACY MONITORING -- do not chart) 1 each PRN DAILY PRN MC SEE COMMENTS; Start 07/25/19 at 14:00; Stop 07/28/19 at 08:16; Status DC Heparin Sodium (Porcine) (Hep Lock Adult) 500 unit STK-MED ONCE IVP ; Start 07/26/19 at 09:29; Stop 07/26/19 at 09:30; Status DC Sodium Chloride 1,000 ml @ 1,000 mls/hr Q1H PRN IV hypotension; Start 07/26/19 at 10:43; Stop 07/26/19 at 16:42; Status DC Sodium Chloride 1,000 ml @ 400 mls/hr Q2H30M PRN IV PATENCY; Start 07/26/19 at 10:43; Stop 07/26/19 at 22:42; Status DC Info (PHARMACY MONITORING -- do not chart) 1 each PRN DAILY PRN MC SEE COMMENTS; Start 07/26/19 at 10:45; Status UNV Info (PHARMACY MONITORING -- do not chart) 1 each PRN DAILY PRN MC SEE PIPE TS; Start 07/26/19 at 10:45; Status UNV Sodium Chloride 90 meq/Potassium Chloride 15 meq/ Magnesium Sulfate 12 meq/Calcium Gluconate 15 meq/ Multivitamins 10 ml/Chromium/ Copper/Manganese/ Seleni/Zn 0.5 ml/ Insulin Human Regular 25 unit/ Total Parenteral N utrition/Amino Acids/Dextrose/ Fat Emulsion Intravenous 1,400 ml @ 58.333 mls/ hr TPN CONT IV Last administered on 07/26/19at 22:13; Start 07/26/19 at 22:00; Stop 07/27/19 at 21:59; Status DC Sodium Chloride 1,000 ml @ 1,000 mls/hr Q1H PRN IV hypotension; Start 07/27/19 at 07:50; Stop 07/27/19 at 13:49; Status DC Albumin Human 200 ml @ 200 mls/hr 1X ONCE IV ; Start 07/27/19 at 08:00; Stop 07/27/19 at 08:53; Status DC Diphenhydramine HCl (Benadryl) 25 mg 1X PRN PRN IV ITCHING; Start 07/27/19 at 08:00; Stop 07/28/19 at 07:59; Status DC Diphenhydramine HCl (Benadryl) 25 mg 1X PRN PRN IV ITCHING; Start 07/27/19 at 08:00; Stop 07/28/19 at 07:59; Status DC Info (PHARMACY MONITORING -- do not chart) 1 each PRN DAILY PRN MC SEE COMMENTS; Start 07/27/19 at 08:00; Stop 07/28/19 at 08:16; Status DC Albumin Human 50 ml @ 50 mls/hr 1X ONCE IV ; Start 07/27/19 at 08:53; Stop 07/27/19 at 08:56; Status DC Albumin Human 200 ml @ 50 mls/hr PRN 1X PRN IV HYPOTENSION Last administered on 08/02/19at 11:54; Start 07/27/19 at 09:00; Stop 09/08/19 at 11:14; Status DC Meropenem 500 mg/ Sodium Chloride 50 ml @ 100 mls/hr Q12H IV Last administered on 08/16/19at 10:45; Start 07/27/19 at 10:00; Stop 08/16/19 at 12:37; Status DC Sodium Chloride 90 meq/Magnesium Sulfate 12 meq/ Calcium Gluconate 15 meq/ Multivitamins 10 ml/Chromium/ Copper/Manganese/ Seleni/Zn 0.5 ml/ Insulin Human Regular 25 unit/ Total Parenteral Nutrition/Amino Acids/Dextrose/ Fat Emulsion Intravenous 1,400 ml @ 58.333 mls/ hr TPN CONT IV Last administered on 07/27/19 at 21:41; Start 07/27/19 at 22:00; Stop 07/28/19 at 21:59; Status DC Sodium Chloride 1,000 ml @ 1,000 mls/hr Q1H PRN IV hypotension; Start 07/28/19 at 07:58; Stop 07/28/19 at 13:57; Status DC Albumin Human 200 ml @ 200 mls/hr 1X PRN PRN IV Hypotension Last administered on 07/28/19at 09:30; Start 07/28/19 at 08:00; Stop 07/28/19 at 13:59; Status DC Sodium Chloride 1,000 ml @ 400 mls/hr Q2H30M PRN IV PATENCY; Start 07/28/19 at 07:58; Stop 07/28/19 at 19:57; Status DC Info (PHARMACY MONITORING -- do not chart) 1 each PRN DAILY PRN MC SEE COMMENTS; Start 07/28/19 at 08:00; Status Cancel Info (PHARMACY MONITORING -- do not chart) 1 each PRN DAILY PRN MC SEE COMMENTS; Start 07/28/19 at 08:15; Status UNV Sodium Chloride 90 meq/Potassium Phosphate 5 mmol/ Magnesium Sulfate 12 meq/Calcium Gluconate 15 meq/ Multivitamins 10 ml/Chromium/ Copper/Manganese/ Seleni/Zn 0.5 ml/ Insulin Human Regular 30 unit/ Total Parenteral Nutrition/Amino Acids/Dextrose/ Fat Emulsion Intravenous 1,400 ml @ 58.333 mls/ hr TPN CONT IV Last administered on 07/28/19at 22:08; Start 07/28/19 at 22:00; Stop 07/29/19 at 21:59; Status DC Linezolid/Dextrose 300 ml @ 300 mls/hr Q12HR IV Last administered on 08/08/19at 20:40; Start 07/29/19 at 11:00; Stop 08/09/19 at 08:10; Status DC Sodium Chloride 90 meq/Potassium Phosphate 15 mmol/ Magnesium Sulfate 12 meq/Calcium Gluconate 15 meq/ Multivitamins 10 ml/Chromium/ Copper/Manganese/ Seleni/Zn 0.5 ml/ Insulin Human Regular 30 unit/ Total Parenteral Nutrition/Amino Acids/Dextrose/ Fat Emulsion Intravenous 1,400 ml @ 58.333 mls/ hr TPN CONT IV Last administered on 07/29/19at 21:49; Start 07/29/19 at 22:00; Stop 07/30/19 at 21:59; Status DC Sodium Chloride 90 meq/Potassium Phosphate 15 mmol/ Magnesium Sulfate 12 meq/Calcium Gluconate 15 meq/ Multivitamins 10 ml/Chromium/ Copper/Manganese/ Seleni/Zn 0.5 ml/ Insulin Human Regular 40 unit/ Total Parenteral Nutrition/Amino Acids/Dextrose/ Fat Emulsion Intravenous 1,400 ml @ 58.333 mls/ hr TPN CONT IV Last administered on 07/30/19at 21:21; Start 07/30/19 at 22:00; Stop 07/31/19 at 21:59; Status DC Sodium Chloride 1,000 ml @ 1,000 mls/hr Q1H PRN IV hypotension; Start 07/30/19 at 13:26; Stop 07/30/19 at 19:25; Status DC Albumin Human 200 ml @ 200 mls/hr 1X PRN PRN IV Hypotension Last administered on 07/30/19at 15:00; Start 07/30/19 at 13:30; Stop 07/30/19 at 19:29; Status DC Sodium Chloride (Normal Saline Flush) 10 ml 1X PRN PRN IV AP catheter pack; Start 07/30/19 at 13:30; Stop 07/31/19 at 13:29; Status DC Sodium Chloride (Normal Saline Flush) 10 ml 1X PRN PRN IV KST OPERATOR catheter pack; Start 07/30/19 at 13:30; Stop 07/31/19 at 13:29; Status DC Sodium Chloride 1,000 ml @ 400 mls/hr Q2H30M PRN IV PATENCY; Start 07/30/19 at 13:26; Stop 07/31/19 at 01:25; Status DC Info (PHARMACY MONITORING -- do not chart) 1 each PRN DAILY PRN MC SEE COMMENTS; Start 07/30/19 at 13:30; Stop 07/30/19 at 13:33; Status DC Info (PHARMACY MONITORING -- do not chart) 1 each PRN DAILY PRN MC SEE COMMENTS; Start 07/30/19 at 13:30; Stop 07/30/19 at 13:34; Status DC Sodium Chloride 90 meq/Potassium Phosphate 19 mmol/ Magnesium Sulfate 12 meq/Calcium Gluconate 15 meq/ Multivitamins 10 ml/Chromium/ Copper/Manganese/ Seleni/Zn 0.5 ml/ Insulin Human Regular 40 unit/ Total Parenteral Nutrition/Amino Acids/Dextrose/ Fat Emulsion Intravenous 1,400 ml @ 58.333 mls/ hr TPN CONT IV Last administered on 07/31/19at 21:54; Start 07/31/19 at 22:00; Stop 08/01/19 at 21:59; Status DC Sodium Chloride 1,000 ml @ 1,000 mls/hr Q1H PRN IV hypotension; Start 08/01/19 at 09:35; Stop 08/01/19 at 15:34; Status DC Albumin Human 200 ml @ 200 mls/hr 1X PRN PRN IV Hypotension; Start 08/01/19 at 09:45; Stop 08/01/19 at 15:44; Status DC Diphenhydramine HCl (Benadryl) 25 mg 1X PRN PRN IV ITCHING; Start 08/01/19 at 09:45; Stop 08/02/19 at 09:44; Status DC Diphenhydramine HCl (Benadryl) 25 mg 1X PRN PRN IV ITCHING; Start 08/01/19 at 09:45; Stop 08/02/19 at 09:44; Status DC Sodium Chloride 1,000 ml @ 400 mls/hr Q2H30M PRN IV PATENCY; Start 08/01/19 at 09:35; Stop 08/01/19 at 21:34; Status DC Info (PHARMACY MONITORING -- do not chart) 1 each PRN DAILY PRN MC SEE COMMENTS; Start 08/01/19 at 09:45; Status Cancel Sodium Chloride 100 meq/Potassium Phosphate 19 mmol/ Magnesium Sulfate 12 meq/Calcium Gluconate 15 meq/ Multivitamins 10 ml/Chromium/ Copper/Manganese/ Seleni/Zn 0.5 ml/ Insulin Human Regular 40 unit/ Potassium Chloride 20 meq/ Total Parenteral Nutrition/Amino Acids/Dextrose/ Fat Emulsion Intravenous 1,400 ml @ 58.333 mls/ hr TPN CONT IV Last administered on 08/01/19at 22:02; Start 08/01/19 at 22:00; Stop 08/02/19 at 21:59; Status DC Furosemide (Lasix) 40 mg 1X ONCE IVP Last administered on 08/01/19at 14:39; Start 08/01/19 at 14:30; Stop 08/01/19 at 14:31; Status DC Metronidazole 100 ml @ 100 mls/hr Q8HRS IV Last administered on 08/09/19at 06:04; Start 08/02/19 at 10:00; Stop 08/09/19 at 08:10; Status DC Sodium Chloride 1,000 ml @ 1,000 mls/hr Q1H PRN IV hypotension; Start 08/02/19 at 08:00; Stop 08/02/19 at 13:59; Status DC Albumin Human 200 ml @ 200 mls/hr 1X PRN PRN IV Hypotension; Start 08/02/19 at 08:00; Stop 08/02/19 at 13:59; Status DC Sodium Chloride 1,000 ml @ 400 mls/hr Q2H30M PRN IV PATENCY; Start 08/02/19 at 08:00; Stop 08/02/19 at 19:59; Status DC Info (PHARMACY MONITORING -- do not chart) 1 each PRN DAILY PRN MC SEE COMMENTS; Start 08/02/19 at 11:30; Status UNV Info (PHARMACY MONITORING -- do not chart) 1 each PRN DAILY PRN MC SEE COMMENTS; Start 08/02/19 at 11:30; Stop 08/04/19 at 12:13; Status DC Sodium Chloride 100 meq/Potassium Phosphate 19 mmol/ Magnesium Sulfate 12 meq /Calcium Gluconate 15 meq/ Multivitamins 10 ml/Chromium/ Copper/Manganese/ Seleni/Zn 0.5 ml/ Insulin Human Regular 40 unit/ Potassium Chloride 20 meq/ Total Parenteral Nutrition/Amino Acids/Dextrose/ Fat Emulsion Intravenous 1,400 ml @ 58.333 mls/ hr TPN CONT IV Last administered on 08/02/19at 21:52; Start 08/02/19 at 22:00; Stop 08/03/19 at 21:59; Status DC Sodium Chloride (Normal Saline Flush) 10 ml QSHIFT PRN IV AFTER MEDS AND BLOOD DRAWS; Start 08/02/19 at 15:00; Stop 08/30/19 at 11:27; Status DC Sodium Chloride (Normal Saline Flush) 10 ml PRN Q5MIN PRN IV AFTER MEDS AND BLOOD DRAWS; Start 08/02/19 at 15:00 Sodium Chloride (Normal Saline Flush) 20 ml PRN Q5MIN PRN IV AFTER MEDS AND BLOOD DRAWS; Start 08/02/19 at 15:00 Sodium Chloride 100 meq/Potassium Phosphate 19 mmol/ Magnesium Sulfate 12 meq/Calcium Gluconate 15 meq/ Multivitamins 10 ml/Chromium/ Copper/Manganese/ Seleni/Zn 0.5 ml/ Insulin Human Regular 40 unit/ Potassium Chloride 20 meq/ Total Parenteral Nutrition/Amino Acids/Dextrose/ Fat Emulsion Intravenous 1,400 ml @ 58.333 mls/ hr TPN CONT IV Last administered on 08/03/19at 21:20; Start 08/03/19 at 22:00; Stop 08/04/19 at 21:59; Status DC Lidocaine HCl (Buffered Lidocaine 1%) 3 ml STK-MED ONCE .ROUTE ; Start 08/03/19 at 13:16; Stop 08/03/19 at 13:16; Status DC Lidocaine HCl (Buffered Lidocaine 1%) 6 ml 1X ONCE INJ Last administered on 08/03/19at 13:45; Start 08/03/19 at 13:30; Stop 08/03/19 at 13:31; Status DC Albumin Human 100 ml @ 100 mls/hr 1X ONCE IV Last administered on 08/03/19at 15:41; Start 08/03/19 at 15:00; Stop 08/03/19 at 15:59; Status DC Albumin Human 50 ml @ 50 mls/hr 1X ONCE IV Last administered on 08/03/19at 15:00; Start 08/03/19 at 15:00; Stop 08/03/19 at 15:59; Status DC Info (PHARMACY MONITORING -- do not chart) 1 each PRN DAILY PRN MC SEE COMMENTS; Start 08/04/19 at 11:30; Status Cancel Info (PHARMACY MONITORING -- do not chart) 1 each PRN DAILY PRN MC SEE COMMENTS; Start 08/04/19 at 11:30; Status UNV Sodium Chloride 100 meq/Potassium Phosphate 10 mmol/ Magnesium Sulfate 12 meq/Calcium Gluconate 15 meq/ Multivitamins 10 ml/Chromium/ Copper/Manganese/ Seleni/Zn 0.5 ml/ Insulin Human Regular 35 unit/ Potassium Chloride 20 meq/ Total Parenteral Nutrition/Amino Acids/Dextrose/ Fat Emulsion Intravenous 1,400 ml @ 58.333 mls/ hr TPN CONT IV Last administered on 08/04/19at 22:10; Start 08/04/19 at 22:00; Stop 08/05/19 at 21:59; Status DC Sodium Chloride 100 meq/Potassium Phosphate 5 mmol/ Magnesium Sulfate 12 meq/Calcium Gluconate 15 meq/ Multivitamins 10 ml/Chromium/ Copper/Manganese/ Seleni/Zn 0.5 ml/ Insulin Human Regular 35 unit/ Potassium Chloride 20 meq/ Total Parenteral Nutrition/Amino Acids/Dextrose/ Fat Emulsion Intravenous 1,400 ml @ 58.333 mls/ hr TPN CONT IV Last administered on 08/05/19at 22:59; Start 08/05/19 at 22:00; Stop 08/06/19 at 21:59; Status DC Sodium Chloride 1,000 ml @ 1,000 mls/hr Q1H PRN IV hypotension; Start 08/06/19 at 08:27; Stop 08/06/19 at 14:26; Status DC Albumin Human 200 ml @ 200 mls/hr 1X PRN PRN IV Hypotension Last administered on 08/06/19at 09:18; Start 08/06/19 at 08:30; Stop 08/06/19 at 14:29; Status DC Sodium Chloride 1,000 ml @ 400 mls/hr Q2H30M PRN IV PATENCY; Start 08/06/19 at 08:27; Stop 08/06/19 at 20:26; Status DC Info (PHARMACY MONITORING -- do not chart) 1 each PRN DAILY PRN MC SEE COMMENTS; Start 08/06/19 at 08:30; Status Cancel Info (PHARMACY MONITORING -- do not chart) 1 each PRN DAILY PRN MC SEE COMMENTS; Start 08/06/19 at 08:30; Stop 08/14/19 at 13:10; Status DC Sodium Chloride 100 meq/Potassium Chloride 40 meq/ Magnesium Sulfate 15 meq/Calcium Gluconate 15 meq/ Multivitamins 10 ml/Chromium/ Copper/Manganese/ Seleni/Zn 0.5 ml/ Insulin Human Regular 35 unit/ Total Parenteral Nutrition/Amino Acids/Dextrose/ Fat Emulsion Intravenous 1,400 ml @ 58.333 mls/ hr TPN CONT IV Last administered on 08/06/19at 22:00; Start 08/06/19 at 22:00; Stop 08/07/19 at 21:59; Status DC Potassium Chloride/Water 100 ml @ 100 mls/hr 1X ONCE IV Last administered on 08/06/19at 17:28; Start 08/06/19 at 14:45; Stop 08/06/19 at 15:44; Status DC Sodium Chloride 100 meq/Potassium Chloride 40 meq/ Magnesium Sulfate 15 meq/Calcium Gluconate 15 meq/ Multivitamins 10 ml/Chromium/ Copper/Manganese/ Seleni/Zn 0.5 ml/ Insulin Human Regular 35 unit/ Total Parenteral Nutrition/Amino Acids/Dextrose/ Fat Emulsion Intravenous 1,400 ml @ 58.333 mls/ hr TPN CONT IV Last administered on 08/07/19at 22:46; Start 08/07/19 at 22:00; Stop 08/08/19 at 21:59; Status DC Sodium Chloride 100 meq/Potassium Chloride 40 meq/ Magnesium Sulfate 20 meq/Calcium Gluconate 15 meq/ Multivitamins 10 ml/Chromium/ Copper/Manganese/ Seleni/Zn 0.5 ml/ Insulin Human Regular 35 unit/ Total Parenteral Nutrition/Amino Acids/Dextrose/ Fat Emulsion Intravenous 1,400 ml @ 58.333 mls/ hr TPN CONT IV Last administered on 08/08/19at 22:31; Start 08/08/19 at 22:00; Stop 08/09/19 at 21:59; Status DC Fentanyl Citrate (Fentanyl 2ml Vial) 50 mcg PRN Q2HR PRN IVP PAIN Last administered on 08/15/19at 13:32; Start 08/08/19 at 21:00; Stop 08/16/19 at 12:53; Status DC Fentanyl Citrate (Fentanyl 2ml Vial) 25 mcg PRN Q2HR PRN IVP PAIN; Start 08/08/19 at 21:00; Stop 08/16/19 at 12:54; Status DC Enoxaparin Sodium (Lovenox 100mg Syringe) 100 mg Q12HR SQ ; Start 08/09/19 at 21:00; Status UNV Amino Acids/ Glycerin/ Electrolytes 1,000 ml @ 75 mls/hr [id number] IV ; Start 08/08/19 at 21:15; Status UNV Sodium Chloride 1,000 ml @ 1,000 mls/hr Q1H PRN IV hypotension; Start 08/09/19 at 07:56; Stop 08/09/19 at 13:55; Status DC Albumin Human 200 ml @ 200 mls/hr 1X PRN PRN IV Hypotension Last administered on 08/09/19at 08:40; Start 08/09/19 at 08:00; Stop 08/09/19 at 13:59; Status DC Sodium Chloride 1,000 ml @ 400 mls/hr Q2H30M PRN IV PATENCY; Start 08/09/19 at 07:56; Stop 08/09/19 at 19:55; Status DC Info (PHARMACY MONITORING -- do not chart) 1 each PRN DAILY PRN MC SEE COMMENTS; Start 08/09/19 at 08:00; Status UNV Info (PHARMACY MONITORING -- do not chart) 1 each PRN DAILY PRN MC SEE COMMENTS; Start 08/09/19 at 08:00; Status UNV Daptomycin 430 mg/ Sodium Chloride 50 ml @ 100 mls/hr Q24H IV Last administered on 08/09/19at 12:35; Start 08/09/19 at 09:00; Stop 08/09/19 at 12:49; Status DC Sodium Chloride 100 meq/Potassium Chloride 40 meq/ Magnesium Sulfate 20 meq/Calcium Gluconate 15 meq/ Multivitamins 10 ml/Chromium/ Copper/Manganese/ Seleni/Zn 0.5 ml/ Insulin Human Regular 35 unit/ Total Parenteral Nutrition/Amino Acids/Dextrose/ Fat Emulsion Intravenous 1,400 ml @ 58.333 mls/ hr TPN CONT IV Last administered on 08/09/19at 21:26; Start 08/09/19 at 22:00; Stop 08/10/19 at 21:59; Status DC Daptomycin 430 mg/ Sodium Chloride 50 ml @ 100 mls/hr Q48H IV ; Start 08/11/19 at 09:00; Stop 08/10/19 at 11:55; Status DC Sodium Chloride 100 meq/Potassium Chloride 40 meq/ Magnesium Sulfate 20 meq/Calcium Gluconate 15 meq/ Multivitamins 10 ml/Chromium/ Copper/Manganese/ Seleni/Zn 0.5 ml/ Insulin Human Regular 35 unit/ Total Parenteral Nutrition/Amino Acids/Dextrose/ Fat Emulsion Intravenous 1,400 ml @ 58.333 mls/ hr TPN CONT IV Last administered on 08/10/19at 22:27; Start 08/10/19 at 22:00; Stop 08/11/19 at 21:59; Status DC Daptomycin 430 mg/ Sodium Chloride 50 ml @ 100 mls/hr Q24H IV Last administered on 08/12/19at 15:07; Start 08/10/19 at 13:00; Stop 08/13/19 at 13:15; Status DC Sodium Chloride 100 meq/Potassium Chloride 40 meq/ Magnesium Sulfate 20 m eq/Calcium Gluconate 10 meq/ Multivitamins 10 ml/Chromium/ Copper/Manganese/ Seleni/Zn 0.5 ml/ Insulin Human Regular 35 unit/ Total Parenteral Nutrition/Amino Acids/Dextrose/ Fat Emulsion Intravenous 1,400 ml @ 58.333 mls/ hr TPN CONT IV Last administered on 08/12/19at 00:06; Start 08/11/19 at 22:00; Stop 08/12/19 at 21:59; Status DC Alteplase, Recombinant (Cathflo For Central Catheter Clearance) 1 mg 1X ONCE INT CAT Last administered on 08/12/19at 11:44; Start 08/12/19 at 10:45; Stop 08/12/19 at 10:46; Status DC Ondansetron HCl (Zofran) 4 mg PRN Q6HRS PRN IV NAUSEA/VOMITING; Start 08/15/19 at 07:00; Stop 08/16/19 at 06:59; Status DC Fentanyl Citrate (Fentanyl 2ml Vial) 25 mcg PRN Q5MIN PRN IV MILD PAIN 1-3; Start 08/15/19 at 07:00; Stop 08/16/19 at 06:59; Status DC Fentanyl Citrate (Fentanyl 2ml Vial) 50 mcg PRN Q5MIN PRN IV MODERATE TO SEVERE PAIN Last administered on 08/15/19at 10:17; Start 08/15/19 at 07:00; Stop 08/16/19 at 06:59; Status DC Ringer's Solution 1,000 ml @ 30 mls/hr Q24H IV ; Start 08/15/19 at 07:00; Stop 08/15/19 at 18:59; Status DC Lidocaine HCl (Xylocaine-Mpf 1% 2ml Vial) 2 ml PRN 1X PRN ID PRIOR TO IV START; Start 08/15/19 at 07:00; Stop 08/16/19 at 06:59; Status DC Prochlorperazine Edisylate (Compazine) 5 mg PACU PRN PRN IV NAUSEA, MRX1; Start 08/15/19 at 07:00; Stop 08/16/19 at 06:59; Status DC Sodium Acetate 50 meq/Potassium Acetate 55 meq/ Magnesium Sulfate 20 meq/Calcium Gluconate 10 meq/ Multivitamins 10 ml/Chromium/ Copper/Manganese/ Seleni/Zn 0.5 ml/ Insulin Human Regular 35 unit/ Total Parenteral Nutrition/Amino Acids/Dextrose/ Fat Emulsion Intravenous 1,400 ml @ 58.333 mls/ hr TPN CONT IV ; Start 08/12/19 at 22:00; Stop 08/12/19 at 14:15; Status DC Sodium Acetate 50 meq/Potassium Acetate 55 meq/ Magnesium Sulfate 20 meq/Calcium Gluconate 10 meq/ Multivitamins 10 ml/Chromium/ Copper/Manganese/ Seleni/Zn 0.5 ml/ Insulin Human Regular 35 unit/ Total Parenteral Nutrition/Amino Acids/Dextrose/ Fat Emulsion Intravenous 1,800 ml @ 75 mls/hr TPN CONT IV Last administered on 08/12/19at 22:38; Start 08/12/19 at 22:00; Stop 08/13/19 at 21:59; Status DC Sodium Chloride 1,000 ml @ 1,000 mls/hr Q1H PRN IV hypotension; Start 08/12/19 at 15:31; Stop 08/12/19 at 21:30; Status DC Diphenhydramine HCl (Benadryl) 25 mg 1X PRN PRN IV ITCHING; Start 08/12/19 at 15:45; Stop 08/13/19 at 15:44; Status DC Diphenhydramine HCl (Benadryl) 25 mg 1X PRN PRN IV ITCHING; Start 08/12/19 at 15:45; Stop 08/13/19 at 15:44; Status DC Sodium Chloride 1,000 ml @ 400 mls/hr Q2H30M PRN IV PATENCY; Start 08/12/19 at 15:31; Stop 08/13/19 at 03:30; Status DC Info (PHARMACY MONITORING -- do not chart) 1 each PRN DAILY PRN MC SEE COMMENTS; Start 08/12/19 at 15:45; Stop 09/13/19 at 14:14; Status DC Sodium Acetate 50 meq/Potassium Acetate 55 meq/ Magnesium Sulfate 20 meq/Calcium Gluconate 10 meq/ Multivitamins 10 ml/Chromium/ Copper/Manganese/ Seleni/Zn 0.5 ml/ Insulin Human Regular 35 unit/ Total Parenteral Nutrition/Amino Acids/Dextrose/ Fat Emulsion Intravenous 1,800 ml @ 75 mls/hr TPN CONT IV Las t administered on 08/13/19at 22:03; Start 08/13/19 at 22:00; Stop 08/14/19 at 21:59; Status DC Daptomycin 430 mg/ Sodium Chloride 50 ml @ 100 mls/hr Q24H IV Last administered on 08/18/19at 13:00; Start 08/13/19 at 13:00; Stop 08/18/19 at 20:58; Status DC Heparin Sodium (Porcine) 1000 unit/Sodium Chloride 1,001 ml @ 1,001 mls/hr 1X ONCE IRR ; Start 08/15/19 at 06:00; Stop 08/15/19 at 06:59; Status DC Potassium Acetate 55 meq/Magnesium Sulfate 20 meq/ Calcium Gluconate 10 meq/ Multivitamins 10 ml/Chromium/ Copper/Manganese/ Seleni/Zn 0.5 ml/ Insulin Human Regular 35 unit/ Total Parenteral Nutrition/Amino Acids/Dextrose/ Fat Emulsion Intravenous 1,920 ml @ 80 mls/hr TPN CONT IV Last administered on 08/14/19at 22:10; Start 08/14/19 at 22:00; Stop 08/15/19 at 21:59; Status DC Dexamethasone Sodium Phosphate (Decadron) 4 mg STK-MED ONCE .ROUTE ; Start 08/15/19 at 10:56; Stop 08/15/19 at 10:57; Status DC Ondansetron HCl (Zofran) 4 mg STK-MED ONCE .ROUTE ; Start 08/15/19 at 10:56; Stop 08/15/19 at 10:57; Status DC Rocuronium [place] (Zemuron) 50 mg STK-MED ONCE .ROUTE ; Start 08/15/19 at 10:56; Stop 08/15/19 at 10:57; Status DC Fentanyl Citrate (Fentanyl 2ml Vial) 100 mcg STK-MED ONCE .ROUTE ; Start 08/15/19 at 10:56; Stop 08/15/19 at 10:57; Status DC Bupivacaine HCl/ Epinephrine Bitart (Sensorcain-Epi 0.5%-1:629932 Mpf) 30 ml STK-MED ONCE .ROUTE Last administered on 08/15/19at 12:01; Start 08/15/19 at 10:58; Stop 08/15/19 at 10:58; Status DC Cellulose (Surgicel Hemostat 2x14) 1 each STK-MED ONCE .ROUTE ; Start 08/15/19 at 10:58; Stop 08/15/19 at 10:59; Status DC Iohexol (Omnipaque 300 Mg/ml) 50 ml STK-MED ONCE .ROUTE ; Start 08/15/19 at 10:58; Stop 08/15/19 at 10:59; Status DC Cellulose (Surgicel Hemostat 4x8) 1 each STK-MED ONCE .ROUTE ; Start 08/15/19 at 10:58; Stop 08/15/19 at 10:59; Status DC Bisacodyl (Dulcolax Supp) 10 mg STK-MED ONCE .ROUTE ; Start 08/15/19 at 10:59; Stop 08/15/19 at 10:59; Status DC Heparin Sodium (Porcine) 1000 unit/Sodium Chloride 1,001 ml @ 1,001 mls/hr 1X ONCE IRR ; Start 08/15/19 at 12:00; Stop 08/15/19 at 12:59; Status DC Propofol 20 ml @ As Directed STK-MED ONCE IV ; Start 08/15/19 at 11:05; Stop 08/15/19 at 11:05; Status DC Sevoflurane (Ultane) 90 ml STK-MED ONCE IH ; Start 08/15/19 at 11:05; Stop 08/15/19 at 11:05; Status DC Sevoflurane (Ultane) 60 ml STK-MED ONCE IH ; Start 08/15/19 at 12:26; Stop 08/15/19 at 12:27; Status DC Propofol 20 ml @ As Directed STK-MED ONCE IV ; Start 08/15/19 at 12:26; Stop 08/15/19 at 12:27; Status DC Phenylephrine HCl (PHENYLEPHRINE in 0.9% NACL PF) 1 mg STK-MED ONCE IV ; Start 08/15/19 at 12:34; Stop 08/15/19 at 12:34; Status DC Heparin Sodium (Porcine) (Heparin Sodium) 5,000 unit Q12HR SQ Last administered on 08/24/19at 20:57; Start 08/15/19 at 21:00; Stop 08/25/19 at 09:59; Status DC Sodium Chloride (Normal Saline Flush) 3 ml QSHIFT PRN IV AFTER MEDS AND BLOOD DRAWS; Start 08/15/19 at 13:45; Status Cancel Naloxone HCl (Narcan) 0.4 mg PRN Q2MIN PRN IV SEE INSTRUCTIONS Last administered on 09/24/19at 15:15; Start 08/15/19 at 13:45; Stop 10/19/19 at 16:00; Status DC Sodium Chloride 1,000 ml @ 25 mls/hr Q24H IV Last administered on 09/13/19at 13:37; Start 08/15/19 at 13:37; Stop 09/16/19 at 13:09; Status DC Naloxone HCl (Narcan) 0.4 mg PRN Q2MIN PRN IV SEE INSTRUCTIONS; Start 08/15/19 at 14:30; Status UNV Sodium Chloride 1,000 ml @ 25 mls/hr Q24H IV ; Start 08/15/19 at 14:30; Status UNV Hydromorphone HCl 30 ml @ 0 mls/hr CONT PRN PRN IV PER PROTOCOL Last administered on 08/20/19at 16:08; Start 08/15/19 at 14:30; Stop 08/22/19 at 08:55; Status DC Potassium Acetate 55 meq/Magnesium Sulfate 20 meq/ Calcium Gluconate 10 meq/ Multivitamins 10 ml/Chromium/ Copper/Manganese/ Seleni/Zn 0.5 ml/ Insulin Human Regular 35 unit/ Total Parenteral Nutrition/Amino Acids/Dextrose/ Fat Emulsion Intravenous 1,920 ml @ 80 mls/hr TPN CONT IV Last administered on 08/15/19at 22:01; Start 08/15/19 at 22:00; Stop 08/16/19 at 21:59; Status DC Bumetanide (Bumex) 2 mg [id number] IV Last administered on 08/19/19at 13:50; Start 08/16/19 at 14:00; Stop 08/20/19 at 14:10; Status DC Meropenem 1 gm/ Sodium Chloride 100 ml @ 200 mls/hr Q8HRS IV Last administered on 09/09/19at 05:53; Start 08/16/19 at 14:00; Stop 09/09/19 at 09:31; Status DC Potassium Acetate 55 meq/Magnesium Sulfate 20 meq/ Calcium Gluconate 10 meq/ Multivitamins 10 ml/Chromium/ Copper/Manganese/ Seleni/Zn 0.5 ml/ Insulin Human Regular 35 unit/ Total Parenteral Nutrition/Amino Acids/Dextrose/ Fat Emulsion Intravenous 1,920 ml @ 80 mls/hr TPN CONT IV Last administered on 08/16/19at 22:02; Start 08/16/19 at 22:00; Stop 08/17/19 at 21:59; Status DC Hydromorphone HCl (Dilaudid Standard FACILITIES OPERATIONS TECHNICIAN) 12 mg STK-MED ONCE IV ; Start 08/15/19 at 14:35; Stop 08/16/19 at 13:53; Status DC Artificial Tears (Artificial Tears) 1 drop PRN Q15MIN PRN OU DRY EYE Last administered on 10/11/19at 21:17; Start 08/17/19 at 05:30 Hydromorphone HCl (Dilaudid Standard FACILITIES OPERATIONS TECHNICIAN) 12 mg STK-MED ONCE IV ; Start 08/16/19 at 12:05; Stop 08/17/19 at 09:15; Status DC Potassium Acetate 65 meq/Magnesium Sulfate 20 meq/ Calcium Gluconate 10 meq/ Multivitamins 10 ml/Chromium/ Copper/Manganese/ Seleni/Zn 0.5 ml/ Insulin Human Regular 30 unit/ Total Parenteral Nutrition/Amino Acids/Dextrose/ Fat Emulsion Intravenous 1,920 ml @ 80 mls/hr TPN CONT IV Last administered on 08/17/19at 22:22; Start 08/17/19 at 22:00; Stop 08/18/19 at 21:59; Status DC Cyclobenzaprine HCl (Flexeril) 10 mg PRN Q6HRS PRN PO MUSCLE SPASMS Last administered on 10/28/19at 19:12; Start 08/18/19 at 10:45 Potassium Acetate 55 meq/Magnesium Sulfate 20 meq/ Calcium Gluconate 10 meq/ Multivitamins 10 ml/Chromium/ Copper/Manganese/ Seleni/Zn 0.5 ml/ Insulin Human Regular 30 unit/ Total Parenteral Nutrition/Amino Acids/Dextrose/ Fat Emulsion Intravenous 1,920 ml @ 80 mls/hr TPN CONT IV Last administered on 08/19/19at 01:00; Start 08/18/19 at 22:00; Stop 08/19/19 at 21:59; Status DC Magnesium Sulfate 50 ml @ 25 mls/hr 1X ONCE IV Last administered on 08/18/19at 17:18; Start 08/18/19 at 12:45; Stop 08/18/19 at 14:44; Status DC Potassium Chloride/Water 100 ml @ 100 mls/hr 1X ONCE IV Last administered on 08/19/19at 11:27; Start 08/19/19 at 12:00; Stop 08/19/19 at 12:59; Status DC Hydromorphone HCl (Dilaudid Standard [employer]) 12 mg STK-MED ONCE IV ; Start 08/17/19 at 10:50; Stop 08/19/19 at 11:02; Status DC Hydromorphone HCl (Dilaudid Standard [employer]ICIAN) 12 mg STK-MED ONCE IV ; Start 08/18/19 at 13:47; Stop 08/19/19 at 11:03; Status DC Potassium Acetate 30 meq/Magnesium Sulfate 20 meq/ Calcium Gluconate 10 meq/ Multivitamins 10 ml/Chromium/ Copper/Manganese/ Seleni/Zn 0.5 ml/ Insulin Human Regular 30 unit/ Potassium Chloride 30 meq/ Total Parenteral Nutrition/Amino Acids/Dextrose/ Fat Emulsion Intravenous 1,920 ml @ 80 mls/hr TPN CONT IV Last administered on 08/19/19at 22:34; Start 08/19/19 at 22:00; Stop 08/20/19 at 21:59; Status DC Potassium Chloride/Water 100 ml @ 100 mls/hr Q1H IV Last administered on 08/20/19at 13:05; Start 08/20/19 at 07:00; Stop 08/20/19 at 10:59; Status DC Magnesium Sulfate 50 ml @ 25 mls/hr 1X ONCE IV Last administered on 08/20/19at 10:34; Start 08/20/19 at 10:30; Stop 08/20/19 at 12:29; Status DC Potassium Chloride 75 meq/ Magnesium Sulfate 20 meq/Calcium Gluconate 10 meq/ Multivitamins 10 ml/Chromium/ Copper/Manganese/ Seleni/Zn 0.5 ml/ Insulin Human Regular 30 unit/ Total Parenteral Nutrition/Amino Acids/Dextrose/ Fat Emulsion Intravenous 1,920 ml @ 80 mls/hr TPN CONT IV Last administered on 08/20/19at 21:51; Start 08/20/19 at 22:00; Stop 08/21/19 at 22:00; Status DC Potassium Chloride 75 meq/ Magnesium Sulfate 20 meq/Calcium Gluconate 10 meq/ Multivitamins 10 ml/Chromium/ Copper/Manganese/ Seleni/Zn 0.5 ml/ Insulin Human Regular 25 unit/ Total Parenteral Nutrition/Amino Acids/Dextrose/ Fat Emulsion Intravenous 1,920 ml @ 80 mls/hr TPN CONT IV Last administered on 08/21/19at 22:04; Start 08/21/19 at 22:00; Stop 08/22/19 at 21:59; Status DC Hydromorphone HCl (Dilaudid) 0.4 mg PRN Q4HRS PRN IVP PAIN Last administered on 08/22/19at 10:57; Start 08/22/19 at 09:00; Stop 08/22/19 at 18:59; Status DC Micafungin Sodium 100 mg/Dextrose 100 ml @ 100 mls/hr Q24H IV Last administered on 09/13/19at 12:17; Start 08/22/19 at 11:00; Stop 09/14/19 at 09:59; Status DC Daptomycin 485 mg/ Sodium Chloride 50 ml @ 100 mls/hr Q24H IV Last administered on 08/29/19at 13:10; Start 08/22/19 at 11:00; Stop 08/30/19 at 07:44; Status DC Potassium Chloride 75 meq/ Magnesium Sulfate 15 meq/Calcium Gluconate 8 meq/ Multivitamins 10 ml/Chromium/ Copper/Manganese/ Seleni/Zn 0.5 ml/ Insulin Human Regular 25 unit/ Total Parenteral Nutrition/Amino Acids/Dextrose/ Fat Emulsion Intravenous 1,920 ml @ 80 mls/hr TPN CONT IV Last administered on 08/22/19at 23:08; Start 08/22/19 at 22:00; Stop 08/23/19 at 21:59; Status DC Haloperidol Lactate (Haldol Inj) 3 mg 1X ONCE IVP Last administered on 08/22/19at 14:37; Start 08/22/19 at 14:30; Stop 08/22/19 at 14:31; Status DC Hydromorphone HCl (Dilaudid) 1 mg PRN Q4HRS PRN IVP PAIN Last administered on 09/05/19at 06:25; Start 08/22/19 at 19:00; Stop 09/05/19 at 17:10; Status DC Potassium Chloride 75 meq/ Magnesium Sulfate 15 meq/Calcium Gluconate 8 meq/ Multivitamins 10 ml/Chromium/ Copper/Manganese/ Seleni/Zn 0.5 ml/ Insulin Human Regular 20 unit/ Total Parenteral Nutrition/Amino Acids/Dextrose/ Fat Emulsion Intravenous 1,920 ml @ 80 mls/hr TPN CONT IV Last administered on 08/23/19at 22:10; Start 08/23/19 at 22:00; Stop 08/24/19 at 21:59; Status DC Lidocaine HCl (Buffered Lidocaine 1%) 3 ml STK-MED ONCE .ROUTE ; Start 08/24/19 at 11:31; Stop 08/24/19 at 11:31; Status DC Lidocaine HCl (Buffered Lidocaine 1%) 3 ml STK-MED ONCE .ROUTE ; Start 08/24/19 at 12:28; Stop 08/24/19 at 12:29; Status DC Lidocaine HCl (Buffered Lidocaine 1%) 6 ml 1X ONCE INJ Last administered on 08/24/19at 12:53; Start 08/24/19 at 12:45; Stop 08/24/19 at 12:46; Status DC Potassium Chloride 75 meq/ Magnesium Sulfate 15 meq/Calcium Gluconate 8 meq/ Multivitamins 10 ml/Chromium/ Copper/Manganese/ Seleni/Zn 0.5 ml/ Insulin Human Regular 20 unit/ Total Parenteral Nutrition/Amino Acids/Dextrose/ Fat Emulsion Intravenous 1,920 ml @ 80 mls/hr TPN CONT IV Last administered on 08/24/19at 22:00; Start 08/24/19 at 22:00; Stop 08/25/19 at 21:59; Status DC Potassium Chloride 75 meq/ Magnesium Sulfate 15 meq/Calcium Gluconate 8 meq/ Multivitamins 10 ml/Chromium/ Copper/Manganese/ Seleni/Zn 0.5 ml/ Insulin Human Regular 15 unit/ Total Parenteral Nutrition/Amino Acids/Dextrose/ Fat Emulsion Intravenous 1,920 ml @ 80 mls/hr TPN CONT IV Last administered on 08/25/19at 22:28; Start 08/25/19 at 22:00; Stop 08/26/19 at 21:59; Status DC Vecuronium [place] (Norcuron Bolus) 6 mg PRN Q6HRS PRN IV VENT ASYNCHRONY; Start 08/25/19 at 19:15; Stop 08/25/19 at 19:35; Status DC Bumetanide (Bumex) 2 mg 1X ONCE IV Last administered on 08/25/19at 22:09; Start 08/25/19 at 19:45; Stop 08/25/19 at 19:46; Status DC Lidocaine HCl (Buffered Lidocaine 1%) 3 ml STK-MED ONCE .ROUTE ; Start 08/26/19 at 07:59; Stop 08/26/19 at 07:59; Status DC Midazolam HCl (Versed) 5 mg STK-MED ONCE .ROUTE ; Start 08/26/19 at 08:36; Stop 08/26/19 at 08:36; Status DC Fentanyl Citrate (Fentanyl 5ml Vial) 250 mcg STK-MED ONCE .ROUTE ; Start 08/26/19 at 08:36; Stop 08/26/19 at 08:37; Status DC Lidocaine HCl (Buffered Lidocaine 1%) 3 ml 1X ONCE IJ Last administered on 08/26/19at 09:30; Start 08/26/19 at 09:15; Stop 08/26/19 at 09:16; Status DC Midazolam HCl (Versed) 5 mg 1X ONCE IV Last administered on 08/26/19at 09:30; Start 08/26/19 at 09:15; Stop 08/26/19 at 09:16; Status DC Fentanyl Citrate (Fentanyl 5ml Vial) 250 mcg 1X ONCE IV Last administered on 08/26/19at 09:30; Start 08/26/19 at 09:15; Stop 08/26/19 at 09:16; Status DC Bumetanide (Bumex) 2 mg DAILY IV Last administered on 09/05/19at 08:07; Start 08/26/19 at 10:00; Stop 09/05/19 at 17:15; Status DC Potassium Chloride 75 meq/ Magnesium Sulfate 15 meq/ Multivitamins 10 ml/Chromiu m/ Copper/Manganese/ Seleni/Zn 0.5 ml/ Insulin Human Regular 15 unit/ Total Parenteral Nutrition/Amino Acids/Dextrose/ Fat Emulsion Intravenous 1,920 ml @ 80 mls/hr TPN CONT IV Last administered on 08/26/19at 21:59; Start 08/26/19 at 22:00; Stop 08/27/19 at 21:59; Status DC Metoclopramide HCl (Reglan Vial) 10 mg PRN Q3HRS PRN IVP NAUSEA/VOMITING-3rd choice Last administered on 09/01/19at 04:25; Start 08/27/19 at 16:45 Potassium Chloride 75 meq/ Magnesium Sulfate 15 meq/ Multivitamins 10 ml/Chromium/ Copper/Manganese/ Seleni/Zn 0.5 ml/ Insulin Human Regular 15 unit/ Total Parenteral Nutrition/Amino Acids/Dextrose/ Fat Emulsion Intravenous 1,920 ml @ 80 mls/hr TPN CONT IV Last administered on 08/27/19at 22:41; Start 08/27/19 at 22:00; Stop 08/28/19 at 21:59; Status DC Magnesium Sulfate 50 ml @ 25 mls/hr 1X ONCE IV Last administered on 08/28/19at 10:44; Start 08/28/19 at 09:00; Stop 08/28/19 at 10:59; Status DC Potassium Chloride/Water 100 ml @ 100 mls/hr 1X ONCE IV Last administered on 08/28/19at 09:37; Start 08/28/19 at 09:00; Stop 08/28/19 at 09:59; Status DC Duloxetine HCl (Cymbalta) 30 mg DAILY PO Last administered on 08/29/19at 09:48; Start 08/28/19 at 14:00; Stop 08/31/19 at 10:25; Status DC Potassium Chloride 80 meq/ Magnesium Sulfate 20 meq/ Multivitamins 10 ml/Chromium/ Copper/Manganese/ Seleni/Zn 0.5 ml/ Insulin Human Regular 15 unit/ Total Parenteral Nutrition/Amino Acids/Dextrose/ Fat Emulsion Intravenous 1,920 ml @ 80 mls/hr TPN CONT IV Last administered on 08/28/19at 21:42; Start 08/28/19 at 22:00; Stop 08/29/19 at 21:59; Status DC Potassium Chloride 80 meq/ Magnesium Sulfate 20 meq/ Multivitamins 10 ml/Chromium/ Copper/Manganese/ Seleni/Zn 0.5 ml/ Insulin Human Regular 15 unit/ Total Parenteral Nutrition/Amino Acids/Dextrose/ Fat Emulsion Intravenous 1,920 ml @ 80 mls/hr TPN CONT IV Last administered on 08/29/19at 22:20; Start 08/29/19 at 22:00; Stop 08/30/19 at 21:59; Status DC Lidocaine HCl (Buffered Lidocaine 1%) 3 ml DJZ-MED ONCE .ROUTE ; Start 08/30/19 at 09:54; Stop 08/30/19 at 09:55; Status DC Hydromorphone HCl (Dilaudid Standard [employer]ICIAN) 12 mg STK-MED ONCE IV ; Start 08/19/19 at 15:50; Stop 08/30/19 at 11:24; Status DC Potassium Chloride 80 meq/ Magnesium Sulfate 20 meq/ Multivitamins 10 ml/Chromium/ Copper/Manganese/ Seleni/Zn 0.5 ml/ Insulin Human Regular 15 unit/ Total Parenteral Nutrition/Amino Acids/Dextrose/ Fat Emulsion Intravenous 1,920 ml @ 80 mls/hr TPN CONT IV Last administered on 08/30/19at 21:40; Start 08/30/19 at 22:00; Stop 08/31/19 at 21:59; Status DC Lidocaine HCl (Buffered Lidocaine 1%) 6 ml 1X ONCE INJ Last administered on 08/30/19at 14:15; Start 08/30/19 at 14:15; Stop 08/30/19 at 14:16; Status DC Potassium Chloride 80 meq/ Magnesium Sulfate 20 meq/ Multivitamins 10 ml/Chromium/ Copper/Manganese/ Seleni/Zn 1 ml/ Insulin Human Regular 15 unit/ Total Parenteral Nutrition/Amino Acids/Dextrose/ Fat Emulsion Intravenous 1,920 ml @ 80 mls/hr TPN CONT IV Last administered on 08/31/19at 22:04; Start 08/31/19 at 22:00; Stop 09/01/19 at 21:59; Status DC Potassium Chloride/Water 100 ml @ 100 mls/hr 1X ONCE IV Last administered on 09/01/19at 11:34; Start 09/01/19 at 11:00; Stop 09/01/19 at 11:59; Status DC Potassium Chloride 90 meq/ Magnesium Sulfate 20 meq/ Multivitamins 10 ml/Chromium/ Copper/Manganese/ Seleni/Zn 1 ml/ Insulin Human Regular 15 unit/ Total Parenteral Nutrition/Amino Acids/Dextrose/ Fat Emulsion Intravenous 1,920 ml @ 80 mls/hr TPN CONT IV Last administered on 09/01/19at 22:57; Start 09/01/19 at 22:00; Stop 09/02/19 at 21:59; Status DC Potassium Chloride 90 meq/ Magnesium Sulfate 20 meq/ Multivitamins 10 ml/Chromium/ Copper/Manganese/ Seleni/Zn 1 ml/ Insulin Human Regular 15 unit/ Total Parenteral Nutrition/Amino Acids/Dextrose/ Fat Emulsion Intravenous 1,920 ml @ 80 mls/hr TPN CONT IV Last administered on 09/02/19at 22:48; Start 09/02/19 at 22:00; Stop 09/03/19 at 21:59; Status DC Potassium Chloride 90 meq/ Magnesium Sulfate 20 meq/ Multivitamins 10 ml/Chromium/ Copper/Manganese/ Seleni/Zn 1 ml/ Insulin Human Regular 15 unit/ Total Parenteral Nutrition/Amino Acids/Dextrose/ Fat Emulsion Intravenous 1,890 ml @ 78.75 mls/ hr TPN CONT IV Last administered on 09/03/19at 22:15; Start 09/03/19 at 22:00; Stop 09/04/19 at 21:59; Status DC Linezolid/Dextrose 300 ml @ 300 mls/hr Q12HR IV Last administered on 09/06/19at 21:08; Start 09/04/19 at 09:00; Stop 09/07/19 at 08:11; Status DC Daptomycin 450 mg/ Sodium Chloride 50 ml @ 100 mls/hr Q24H IV Last administered on 09/07/19at 09:25; Start 09/04/19 at 09:00; Stop 09/08/19 at 08:30; Status DC Potassium Chloride 90 meq/ Magnesium Sulfate 20 meq/ Multivitamins 10 ml/Chromium/ Copper/Manganese/ Seleni/Zn 1 ml/ Insulin Human Regular 15 unit/ Total Parenteral Nutrition/Amino Acids/Dextrose/ Fat Emulsion Intravenous 1,890 ml @ 78.75 mls/ hr TPN CONT IV Last administered on 09/04/19at 21:34; Start 09/04/19 at 22:00; Stop 09/05/19 at 21:59; Status DC Lorazepam (Ativan Inj) 2 mg STK-MED ONCE .ROUTE ; Start 09/04/19 at 14:58; Stop 09/04/19 at 14:58; Status DC Metoprolol Tartrate (Lopressor Vial) 5 mg 1X ONCE IVP Last administered on 09/04/19at 15:31; Start 09/04/19 at 15:15; Stop 09/04/19 at 15:16; Status DC Lorazepam (Ativan Inj) 2 mg 1X ONCE IVP Last administered on 09/04/19at 15:30; Start 09/04/19 at 15:15; Stop 09/04/19 at 15:16; Status DC Enoxaparin Sodium (Lovenox 40mg Syringe) 40 mg Q24H SQ Last administered on 09/23/19at 17:44; Start 09/04/19 at 17:00; Stop 09/25/19 at 06:50; Status DC Lorazepam (Ativan Inj) 1 mg PRN Q4HRS PRN IVP ANXIETY / AGITATION MILD-MOD Last administered on 09/18/19at 15:55; Start 09/04/19 at 19:15; Stop 09/20/19 at 11:45; Status DC Lorazepam (Ativan Inj) 2 mg PRN Q4HRS PRN IVP ANXIETY / AGITATION SEVERE Last administered on 09/19/19at 07:55; Start 09/04/19 at 19:15; Stop 09/20/19 at 11:45; Status DC Fentanyl Citrate (Fentanyl 2ml Vial) 50 mcg PRN Q4HRS PRN IVP SEVERE PAIN Last administered on 10/01/19at 05:15; Start 09/05/19 at 13:15; Stop 10/02/19 at 09:29; Status DC Fentanyl Citrate (Fentanyl 2ml Vial) 25 mcg PRN Q4HRS PRN IVP MODERATE PAIN Last administered on 10/01/19at 00:27; Start 09/05/19 at 13:15; Stop 10/02/19 at 09:30; Status DC Potassium Chloride 90 meq/ Magnesium Sulfate 20 meq/ Multivitamins 10 ml/Chromium/ Copper/Manganese/ Seleni/Zn 1 ml/ Insulin Human Regular 15 unit/ Total Parenteral Nutrition/Amino Acids/Dextrose/ Fat Emulsion Intravenous 1,890 ml @ 78.75 mls/ hr TPN CONT IV Last administered on 09/05/19at 22:18; Start 09/05/19 at 22:00; Stop 09/06/19 at 21:59; Status DC Furosemide (Lasix) 40 mg 1X ONCE IVP Last administered on 09/05/19at 21:51; Start 09/05/19 at 21:45; Stop 09/05/19 at 21:48; Status DC Albumin Human 100 ml @ 100 mls/hr 1X PRN PRN IV SEE COMMENTS; Start 09/06/19 at 01:30 Furosemide (Lasix) 40 mg [id number] IVP Last administered on 09/21/19at 08:04; Start 09/06/19 at 14:00; Stop 09/21/19 at 13:07; Status DC Potassium Chloride 90 meq/ Magnesium Sulfate 20 meq/ Multivitamins 10 ml/Chromium/ Copper/Manganese/ Seleni/Zn 1 ml/ Insulin Human Regular 15 unit/ Total Parenteral Nutrition/Amino Acids/Dextrose/ Fat Emulsion Intravenous 1,800 ml @ 75 mls/hr TPN CONT IV Last administered on 09/06/19at 22:31; Start 09/06/19 at 22:00; Stop 09/07/19 at 21:59; Status DC Potassium Chloride 90 meq/ Magnesium Sulfate 20 meq/ Multivitamins 10 ml/Chromium/ Copper/Manganese/ Seleni/Zn 1 ml/ Insulin Human Regular 15 unit/ T otal Parenteral Nutrition/Amino Acids/Dextrose/ Fat Emulsion Intravenous 1,800 ml @ 75 mls/hr TPN CONT IV Last administered on 09/07/19at 22:28; Start 09/07/19 at 22:00; Stop 09/08/19 at 21:59; Status DC Potassium Chloride 110 meq/ Magnesium Sulfate 20 meq/ Multivitamins 10 ml/Chromium/ Copper/Manganese/ Seleni/Zn 1 ml/ Insulin Human Regular 15 unit/ Total Parenteral Nutrition/Amino Acids/Dextrose/ Fat Emulsion Intravenous 1,800 ml @ 75 mls/hr TPN CONT IV Last administered on 09/08/19at 22:01; Start at 22:00; Stop 09/09/19 at 21:59; Status DC Saliva Substitute (Biotene Moisturizing Mouth) 2 spray PRN Q15MIN PRN PO DRY MOUTH; Start 09/08/19 at 11:00 Potassium Chloride 110 meq/ Magnesium Sulfate 20 meq/ Multivitamins 10 ml/Chromium/ Copper/Manganese/ Seleni/Zn 1 ml/ Insulin Human Regular 15 unit/ Total Parenteral Nutrition/Amino Acids/Dextrose/ Fat Emulsion Intravenous 1,800 ml @ 75 mls/hr TPN CONT IV Last administered on 09/09/19at 22:21; Start 09/09/19 at 22:00; Stop 09/10/19 at 21:59; Status DC Potassium Chloride 110 meq/ Magnesium Sulfate 20 meq/ Multivitamins 10 ml/Chromium/ Copper/Manganese/ Seleni/Zn 1 ml/ Insulin Human Regular 15 unit/ Total Parenteral Nutrition/Amino Acids/Dextrose/ Fat Emulsion Intravenous 1,800 ml @ 75 mls/hr TPN CONT IV Last administered on 09/10/19at 22:04; Start 09/10/19 at 22:00; Stop 09/11/19 at 21:59; Status DC Potassium Chloride 110 meq/ Magnesium Sulfate 20 meq/ Multivitamins 10 ml/Chromium/ Copper/Manganese/ Seleni/Zn 1 ml/ Insulin Human Regular 15 unit/ Total Parenteral Nutrition/Amino Acids/Dextrose/ Fat Emulsion Intravenous 1,800 ml @ 75 mls/hr TPN CONT IV Last administered on 09/11/19at 22:48; Start 09/11/19 at 22:00; Stop 09/12/19 at 21:59; Status DC Potassium Chloride 70 meq/ Magnesium Sulfate 20 meq/ Multivitamins 10 ml/Chromium/ Copper/Manganese/ Seleni/Zn 1 ml/ Insulin Human Regular 15 unit/ Total Parenteral Nutrition/Amino Acids/Dextrose/ Fat Emulsion Intravenous 1,800 ml @ 75 mls/hr TPN CONT IV Last administered on 09/12/19at 21:39; Start at 22:00; Stop 09/13/19 at 21:59; Status DC Meropenem 500 mg/ Sodium Chloride 50 ml @ 100 mls/hr Q6HRS IV Last adminis tered on 09/14/19at 06:02; Start 09/12/19 at 18:00; Stop 09/14/19 at 09:59; Status DC Barium Sulfate (Varibar Thin Liquid Apple) 148 gm 1X ONCE PO ; Start 09/13/19 at 11:45; Stop 09/13/19 at 11:49; Status DC Potassium Chloride 70 meq/ Magnesium Sulfate 20 meq/ Multivitamins 10 ml/Chromium/ Copper/Manganese/ Seleni/Zn 1 ml/ Insulin Human Regular 15 unit/ Total Parenteral Nutrition/Amino Acids/Dextrose/ Fat Emulsion Intravenous 1,800 ml @ 75 mls/hr TPN CONT IV Last administered on 09/13/19at 22:27; Start 09/13/19 at 22:00; Stop 09/14/19 at 21:59; Status DC Piperacillin Sod/ Tazobactam Sod 3.375 gm/Sodium Chloride 50 ml @ 100 mls/hr Q6HRS IV Last administered on 09/22/19at 06:10; Start 09/14/19 at 12:00; Stop 09/22/19 at 07:26; Status DC Potassium Chloride 70 meq/ Magnesium Sulfate 20 meq/ Multivitamins 10 ml/Chromium/ Copper/Manganese/ Seleni/Zn 1 ml/ Insulin Human Regular 15 unit/ Total Parenteral Nutrition/Amino Acids/Dextrose/ Fat Emulsion Intravenous 1,800 ml @ 75 mls/hr TPN CONT IV Last administered on 09/14/19at 22:03; Start 09/14/19 at 22:00; Stop 09/15/19 at 21:59; Status DC Potassium Chloride 70 meq/ Magnesium Sulfate 20 meq/ Multivitamins 10 ml/Chromium/ Copper/Manganese/ Seleni/Zn 1 ml/ Insulin Human Regular 15 unit/ Total Parenteral Nutrition/Amino Acids/Dextrose/ Fat Emulsion Intravenous 1,800 ml @ 75 mls/hr TPN CONT IV Last administered on 09/15/19at 22:33; Start 09/15/19 at 22:00; Stop 09/16/19 at 21:59; Status DC Potassium Chloride 70 meq/ Magnesium Sulfate 20 meq/ Multivitamins 10 ml/C hromium/ Copper/Manganese/ Seleni/Zn 1 ml/ Insulin Human Regular 15 unit/ Total Parenteral Nutrition/Amino Acids/Dextrose/ Fat Emulsion Intravenous 1,800 ml @ 75 mls/hr TPN CONT IV Last administered on 09/16/19at 23:13; Start 09/16/19 at 22:00; Stop 09/17/19 at 21:59; Status DC Potassium Chloride 80 meq/ Magnesium Sulfate 20 meq/ Multivitamins 10 ml/Chromium/ Copper/Manganese/ Seleni/Zn 1 ml/ Insulin Human Regular 15 unit/ Total Parenteral Nutrition/Amino Acids/Dextrose/ Fat Emulsion Intravenous 1,800 ml @ 75 mls/hr TPN CONT IV Last administered on 09/17/19at 22:30; Start 09/17/19 at 22:00; Stop 09/18/19 at 21:59; Status DC Potassium Chloride 80 meq/ Magnesium Sulfate 20 meq/ Multivitamins 10 ml/Chromium/ Copper/Manganese/ Seleni/Zn 1 ml/ Insulin Human Regular 15 unit/ Total Parenteral Nutrition/Amino Acids/Dextrose/ Fat Emulsion Intravenous 1,800 ml @ 75 mls/hr TPN CONT IV Last administered on 09/18/19at 21:54; Start 09/18/19 at 22:00; Stop 09/19/19 at 21:59; Status DC Potassium Chloride/Water 100 ml @ 100 mls/hr 1X ONCE IV Last administered on 09/19/19at 10:15; Start 09/19/19 at 10:00; Stop 09/19/19 at 10:59; Status DC Potassium Chloride 90 meq/ Magnesium Sulfate 20 meq/ Multivitamins 10 ml/Chromium/ Copper/Manganese/ Seleni/Zn 1 ml/ Insulin Human Regular 20 unit/ Total Parenteral Nutrition/Amino Acids/Dextrose/ Fat Emulsion Intravenous 1,800 ml @ 75 mls/hr TPN CONT IV Last administered on 09/19/19at 22:28; Start 09/19/19 at 22:00; Stop 09/20/19 at 21:59; Status DC Potassium Chloride 90 meq/ Magnesium Sulfate 20 meq/ Multivitamins 10 ml/Chromium/ Copper/Manganese/ Seleni/Zn 1 ml/ Insulin Human Regular 20 unit/ Total Parenteral Nutrition/Amino Acids/Dextrose/ Fat Emulsion Intravenous 1,800 ml @ 75 mls/hr TPN CONT IV Last administered on 09/20/19at 22:08; Start 09/20/19 at 22:00; Stop 09/21/19 at 21:59; Status DC Lorazepam (Ativan Inj) 0.25 mg PRN Q4HRS PRN IVP ANXIETY / AGITATION Last administered on 10/29/19at 05:34; Start 09/21/19 at 07:30 Potassium Chloride 90 meq/ Magnesium Sulfate 20 meq/ Multivitamins 10 ml/Chromium/ Copper/Manganese/ Seleni/Zn 1 ml/ Insulin Human Regular 20 unit/ Total Parenteral Nutrition/Amino Acids/Dextrose/ Fat Emulsion Intravenous 1,800 ml @ 75 mls/hr TPN CONT IV Last administered on 09/21/19at 23:13; Start 09/21/19 at 22:00; Stop 09/22/19 at 21:59; Status DC Furosemide (Lasix) 40 mg DAILY IVP Last administered on 09/23/19at 11:14; Start 09/21/19 at 13:30; Stop 09/25/19 at 09:12; Status DC Fluoxetine HCl (PROzac) 20 mg QHS PEG Last administered on 10/28/19at 20:40; Start 09/22/19 at 21:00 Fentanyl (Duragesic 50mcg/ Hr Patch) 1 patch Q72H TD Last administered on 09/22/19at 21:22; Start 09/22/19 at 21:00; Stop 10/01/19 at 12:00; Status DC Potassium Chloride 40 meq/ Potassium Acetate 60 meq/Magnesium Sulfate 10 meq/ Multivitamins 10 ml/Chromium/ Copper/Manganese/ Seleni/Zn 1 ml/ Insulin Human Regular 20 unit/ Total Parenteral Nutrition/Amino Acids/Dextrose/ Fat Emulsion Intravenous 1,800 ml @ 75 mls/hr TPN CONT IV Last administered on 09/23/19at 00:03; Start 09/22/19 at 22:00; Stop 09/23/19 at 21:59; Status DC Potassium Acetate 80 meq/Magnesium Sulfate 5 meq/ Multivitamins 10 ml/Chromium/ Copper/Manganese/ Seleni/Zn 1 ml/ Insulin Human Regular 20 unit/ Total Parenteral Nutrition/Amino Acids/Dextrose/ Fat Emulsion Intravenous 1,920 ml @ 80 mls/hr TPN CONT IV Last administered on 09/23/19at 21:59; Start 09/23/19 at 22:00; Stop 09/24/19 at 21:59; Status DC Potassium Acetate 60 meq/Magnesium Sulfate 5 meq/ Multivitamins 10 ml/Chromium/ Copper/Manganese/ Seleni/Zn 1 ml/ Insulin Human Regular 30 unit/ Total Parenteral Nutrition/Amino Acids/Dextrose/ Fat Emulsion Intravenous 1,920 ml @ 80 mls/hr TPN CONT IV Last administered on 09/24/19at 21:54; Start 09/24/19 at 22:00; Stop 09/25/19 at 21:59; Status DC Norepinephrine Bitartrate 8 mg/ Dextrose 258 ml @ 13.332 mls/ hr CONT PRN IV PER PROTOCOL Last administered on 10/20/19at 09:09; Start 09/25/19 at 06:30 Albumin Human 500 ml @ 125 mls/hr 1X ONCE IV Last administered on 09/25/19at 08:10; Start 09/25/19 at 08:15; Stop 09/25/19 at 12:14; Status DC Potassium Acetate 40 meq/Magnesium Sulfate 5 meq/ Multivitamins 10 ml/Chromium/ Copper/Manganese/ Seleni/Zn 1 ml/ Insulin Human Regular 30 unit/ Total Parenteral Nutrition/Amino Acids/Dextrose/ Fat Emulsion Intravenous 1,920 ml @ 80 mls/hr TPN CONT IV Last administered on 09/25/19at 22:23; Start 09/25/19 at 22:00; Stop 09/26/19 at 21:59; Status DC Meropenem 1 gm/ Sodium Chloride 100 ml @ 200 mls/hr Q8HRS IV ; Start 09/25/19 at 14:00; Status Cancel Meropenem 1 gm/ Sodium Chloride 100 ml @ 200 mls/hr Q8HRS IV Last administered on 09/25/19at 11:04; Start 09/25/19 at 10:00; Stop 09/25/19 at 13:00; Status DC Meropenem 1 gm/ Sodium Chloride 100 ml @ 200 mls/hr Q12HR IV Last administered on 10/13/19at 08:27; Start 09/25/19 at 21:00; Stop 10/13/19 at 08:56; Status DC Sodium Chloride 1,000 ml @ 1,000 mls/hr 1X ONCE IV Last administered on 09/25/19at 11:06; Start 09/25/19 at 10:45; Stop 09/25/19 at 11:44; Status DC Micafungin Sodium 100 mg/Dextrose 100 ml @ 100 mls/hr Q24H IV Last administered on 10/12/19at 12:34; Start 09/25/19 at 11:00; Stop 10/13/19 at 08:56; Status DC Daptomycin 410 mg/ Sodium Chloride 50 ml @ 100 mls/hr Q24H IV Last adminis tered on 09/27/19at 13:33; Start 09/25/19 at 14:00; Stop 09/28/19 at 08:30; Status DC Midazolam HCl (Versed) 2 mg STK-MED ONCE .ROUTE ; Start 09/25/19 at 14:47; Stop 09/25/19 at 14:48; Status DC Fentanyl Citrate (Fentanyl 2ml Vial) 100 mcg STK-MED ONCE .ROUTE ; Start 09/25/19 at 14:47; Stop 09/25/19 at 14:48; Status DC Flumazenil (Romazicon) 0.5 mg STK-MED ONCE IV ; Start 09/25/19 at 14:48; Stop 09/25/19 at 14:48; Status DC Naloxone HCl (Narcan) 0.4 mg STK-MED ONCE .ROUTE ; Start 09/25/19 at 14:48; Stop 09/25/19 at 14:48; Status DC Lidocaine HCl (Lidocaine 1% 20ml Vial) 20 ml STK-MED ONCE .ROUTE ; Start 09/25/19 at 14:48; Stop 09/25/19 at 14:48; Status DC Midazolam HCl (Versed) 2 mg 1X ONCE IV Last administered on 09/25/19at 15:28; Start 09/25/19 at 15:00; Stop 09/25/19 at 15:01; Status DC Fentanyl Citrate (Fentanyl 2ml Vial) 100 mcg 1X ONCE IV Last administered on 09/25/19at 15:28; Start 09/25/19 at 15:00; Stop 09/25/19 at 15:01; Status DC Lidocaine HCl (Lidocaine 1% 20ml Vial) 20 ml 1X ONCE INJ Last administered on 09/25/19at 15:30; Start 09/25/19 at 15:00; Stop 09/25/19 at 15:01; Status DC Sodium Chloride 1,000 ml @ 100 mls/hr Q10H IV Last administered on 10/04/19at 07:30; Start 09/25/19 at 20:00; Stop 10/04/19 at 11:26; Status DC Sodium Bicarbonate (Sodium Bicarb Adult 8.4% Syr) 50 meq 1X ONCE IV Last administered on 09/25/19at 21:47; Start 09/25/19 at 22:00; Stop 09/25/19 at 22:01; Status DC Potassium Acetate 40 meq/Magnesium Sulfate 5 meq/ Multivitamins 10 ml/Chromium/ Copper/Manganese/ Seleni/Zn 1 ml/ Insulin Human Regular 30 unit/ Total Parenteral Nutrition/Amino Acids/Dextrose/ Fat Emulsion Intravenous 1,920 ml @ 80 mls/hr TPN CONT IV Last administered on 09/26/19at 22:28; Start 09/26/19 at 22:00; Stop 09/27/19 at 21:59; Status DC Sodium Chloride 500 ml @ 500 mls/hr 1X ONCE IV Last administered on 09/27/19at 06:39; Start 09/27/19 at 06:45; Stop 09/27/19 at 07:44; Status DC Potassium Acetate 40 meq/Magnesium Sulfate 5 meq/ Multivitamins 10 ml/Chromium/ Copper/Manganese/ Seleni/Zn 1 ml/ Insulin Human Regular 30 unit/ Total Parenteral Nutrition/Amino Acids/Dextrose/ Fat Emulsion Intravenous 1,920 ml @ 80 mls/hr TPN CONT IV Last administered on 09/27/19at 22:03; Start 09/27/19 at 22:00; Stop 09/28/19 at 21:59; Status DC Metoprolol Tartrate (Lopressor Vial) 5 mg PRN Q6HRS PRN IVP HYPERTENSION Last administered on 10/29/19at 08:03; Start 09/28/19 at 09:00 Potassium Acetate 40 meq/Magnesium Sulfate 5 meq/ Multivitamins 10 ml/Chromium/ Copper/Manganese/ Seleni/Zn 1 ml/ Insulin Human Regular 30 unit/ Total Parenteral Nutrition/Amino Acids/Dextrose/ Fat Emulsion Intravenous 1,920 ml @ 80 mls/hr TPN CONT IV Last administered on 09/28/19at 21:26; Start 09/28/19 at 22:00; Stop 09/29/19 at 21:59; Status DC Potassium Acetate 40 meq/Magnesium Sulfate 5 meq/ Multivitamins 10 ml/Chromium/ Copper/Manganese/ Seleni/Zn 1 ml/ Insulin Human Regular 30 unit/ Total Parenteral Nutrition/Amino Acids/Dextrose/ Fat Emulsion Intravenous 1,920 ml @ 80 mls/hr TPN CONT IV Last administered on 09/29/19at 23:23; Start 09/29/19 at 22:00; Stop 09/30/19 at 21:59; Status DC Potassium Acetate 40 meq/Magnesium Sulfate 5 meq/ Multivitamins 10 ml/Chromium/ Copper/Manganese/ Seleni/Zn 1 ml/ Insulin Human Regular 30 unit/ Total Parenteral Nutrition/Amino Acids/Dextrose/ Fat Emulsion Intravenous 1,920 ml @ 80 mls/hr TPN CONT IV Last administered on 09/30/19at 21:35; Start 09/30/19 at 22:00; Stop 10/01/19 at 21:59; Status DC Furosemide (Lasix) 20 mg 1X ONCE IVP Last administered on 10/01/19at 06:26; Start 10/01/19 at 06:15; Stop 10/01/19 at 06:16; Status DC Methylprednisolone Sodium Succinate (SOLU-Medrol 125MG VIAL) 125 mg 1X ONCE IV Last administered on 10/01/19at 06:26; Start 10/01/19 at 06:15; Stop 10/01/19 at 06:16; Status DC Albuterol/ Ipratropium (Duoneb) 3 ml Q4HRS NEB Last administered on 10/28/19at 20:06; Start 10/01/19 at 08:00 Fentanyl Citrate 30 ml @ 0 mls/hr CONT PRN IV SEE PROTOCOL Last administered on 10/22/19at 08:03; Start 10/01/19 at 06:00; Stop 10/22/19 at 12:42; Status DC Propofol 100 ml @ 0 mls/hr CONT PRN IV SEE PROTOCOL Last administered on 10/08/19at 23:50; Start 10/01/19 at 06:00 Fentanyl Citrate (Fentanyl 2ml Vial) 25 mcg PRN Q1HR PRN IV SEE COMMENTS; Start 10/01/19 at 06:00 Fentanyl Citrate (Fentanyl 2ml Vial) 50 mcg PRN Q1HR PRN IV SEE COMMENTS Last administered on 10/29/19at 04:36; Start 10/01/19 at 06:00 Chlorhexidine Gluconate (Peridex) 15 ml BID MM ; Start 10/01/19 at 09:00; Stop 10/01/19 at 07:58; Status DC Potassium Acetate 40 meq/Magnesium Sulfate 5 meq/ Multivitamins 10 ml/Chromium/ Copper/Manganese/ Seleni/Zn 1 ml/ Insulin Human Regular 30 unit/ Total Parenteral Nutrition/Amino Acids/Dextrose/ Fat Emulsion Intravenous 1,920 ml @ 80 mls/hr TPN CONT IV Last administered on 10/01/19at 21:19; Start 10/01/19 at 22:00; Stop 10/02/19 at 21:59; Status DC Acetylcysteine (Mucomyst 20% Resp Treatment) 600 mg BID NEB Last administered on 10/07/19at 09:33; Start 10/01/19 at 21:00; Stop 10/07/19 at 10:39; Status DC Magnesium Sulfate 100 ml @ 25 mls/hr 1X ONCE IV Last administered on 10/01/19at 15:48; Start 10/01/19 at 15:45; Stop 10/01/19 at 19:44; Status DC Potassium Acetate 40 meq/Magnesium Sulfate 5 meq/ Multivitamins 10 ml/Chromium/ Copper/Manganese/ Seleni/Zn 1 ml/ Insulin Human Regular 30 unit/ Total Parenteral Nutrition/Amino Acids/Dextrose/ Fat Emulsion Intravenous 1,920 ml @ 80 mls/hr TPN CONT IV Last administered on 10/02/19at 21:35; Start 10/02/19 at 22:00; Stop 10/03/19 at 21:59; Status DC Potassium Chloride/Water 100 ml @ 100 mls/hr Q1H IV Last administered on 10/03/19at 08:31; Start 10/03/19 at 07:00; Stop 10/03/19 at 08:59; Status DC Potassium Acetate 40 meq/Magnesium Sulfate 5 meq/ Multivitamins 10 ml/Chromium/ Copper/Manganese/ Seleni/Zn 1 ml/ Insulin Human Regular 30 unit/ Total Parenteral Nutrition/Amino Acids/Dextrose/ Fat Emulsion Intravenous 1,920 ml @ 80 mls/hr TPN CONT IV Last administered on 10/03/19at 21:54; Start 10/03/19 at 22:00; Stop 10/04/19 at 19:34; Status DC Lidocaine HCl (Buffered Lidocaine 1%) 3 ml STK-MED ONCE .ROUTE ; Start 10/03/19 at 12:14; Stop 10/03/19 at 12:14; Status DC Lidocaine HCl (Buffered Lidocaine 1%) 3 ml 1X ONCE IJ Last administered on 10/03/19at 13:11; Start 10/03/19 at 13:00; Stop 10/03/19 at 13:01; Status DC Magnesium Sulfate 50 ml @ 25 mls/hr 1X ONCE IV ; Start 10/04/19 at 08:15; Stop 10/04/19 at 10:14; Status DC Potassium Acetate 40 meq/Magnesium Sulfate 10 meq/ Multivitamins 10 ml/Chromium/ Copper/Manganese/ Seleni/Zn 1 ml/ Insulin Human Regular 20 unit/ Total Parenteral Nutrition/Amino Acids/Dextrose/ Fat Emulsion Intravenous 1,920 ml @ 80 mls/hr TPN CONT IV Last administered on 10/04/19at 21:32; Start 10/04/19 at 22:00; Stop 10/05/19 at 21:59; Status DC Potassium Chloride/Water 100 ml @ 100 mls/hr Q1H IV Last administered on 10/05/19at 09:12; Start 10/05/19 at 08:00; Stop 10/05/19 at 09:59; Status DC Alteplase, Recombinant (Cathflo For Central Catheter Clearance) 4 mg 1X ONCE INT CAT ; Start 10/05/19 at 09:15; Stop 10/05/19 at 09:16; Status UNV Alteplase, Recombinant (Cathflo For Central Catheter Clearance) 4 mg 1X ONCE INT CAT ; Start 10/05/19 at 09:15; Stop 10/05/19 at 09:16; Status UNV Alteplase, Recombinant (Cathflo For Central Catheter Clearance) 4 mg 1X ONCE INT CAT ; Start 10/05/19 at 09:15; Stop 10/05/19 at 09:16; Status UNV Alteplase, Recombinant 4 mg/ Sodium Chloride 20 ml @ 20 mls/hr 1X ONCE IV Last administered on 10/05/19at 10:10; Start 10/05/19 at 10:00; Stop 10/05/19 at 10:59; Status DC Alteplase, Recombinant 4 mg/ Sodium Chloride 20 ml @ 20 mls/hr 1X ONCE IV Last administered on 10/05/19at 10:09; Start 10/05/19 at 10:00; Stop 10/05/19 at 10:59; Status DC Alteplase, Recombinant 4 mg/ Sodium Chloride 20 ml @ 20 mls/hr 1X ONCE IV Last administered on 10/05/19at 10:09; Start 10/05/19 at 10:00; Stop 10/05/19 at 10:59; Status DC Potassium Acetate 60 meq/Magnesium Sulfate 10 meq/ Multivitamins 10 ml/Chromium/ Copper/Manganese/ Seleni/Zn 1 ml/ Insulin Human Regular 20 unit/ Total Parenteral Nutrition/Amino Acids/Dextrose/ Fat Emulsion Intravenous 1,920 ml @ 80 mls/hr TPN CONT IV Last administered on 10/05/19at 21:55; Start 10/05/19 at 22:00; Stop 10/06/19 at 21:59; Status DC Albumin Human 500 ml @ 125 mls/hr 1X ONCE IV Last administered on 10/06/19at 12:01; Start 10/06/19 at 11:15; Stop 10/06/19 at 15:14; Status DC Sodium Chloride 500 ml @ 500 mls/hr 1X ONCE IV Last administered on 10/06/19at 13:50; Start 10/06/19 at 11:15; Stop 10/06/19 at 12:14; Status DC Potassium Acetate 60 meq/Magnesium Sulfate 14 meq/ Multivitamins 10 ml/Chromium/ Copper/Manganese/ Seleni/Zn 1 ml/ Insulin Human Regular 20 unit/ Total Parenteral Nutrition/Amino Acids/Dextrose/ Fat Emulsion Intravenous 1,920 ml @ 80 mls/hr TPN CONT IV Last administered on 10/06/19at 22:26; Start 10/06/19 at 22:00; Stop 10/07/19 at 21:59; Status DC Ciprofloxacin/ Dextrose 200 ml @ 200 mls/hr Q12HR IV Last administered on 10/13/19at 08:27; Start 10/06/19 at 21:00; Stop 10/13/19 at 08:56; Status DC Albumin Human 250 ml @ 62.5 mls/hr 1X ONCE IV Last administered on 10/07/19at 11:09; Start 10/07/19 at 11:00; Stop 10/07/19 at 14:59; Status DC Furosemide (Lasix) 20 mg 1X ONCE IVP Last administered on 10/07/19at 14:52; Start 10/07/19 at 10:45; Stop 10/07/19 at 10:49; Status DC Potassium Acetate 60 meq/Magnesium Sulfate 14 meq/ Multivitamins 10 ml/Chromium/ Copper/Manganese/ Seleni/Zn 1 ml/ Insulin Human Regular 15 unit/ Total Parent eral Nutrition/Amino Acids/Dextrose/ Fat Emulsion Intravenous 1,920 ml @ 80 mls/hr TPN CONT IV Last administered on 10/07/19at 22:08; Start 10/07/19 at 22:00; Stop 10/08/19 at 21:59; Status DC Potassium Acetate 60 meq/Magnesium Sulfate 14 meq/ Multivitamins 10 ml/Chromium/ Copper/Manganese/ Seleni/Zn 1 ml/ Insulin Human Regular 15 unit/ Total Parenteral Nutrition/Amino Acids/Dextrose/ Fat Emulsion Intravenous 1,920 ml @ 80 mls/hr TPN CONT IV Last administered on 10/08/19at 22:12; Start 10/08/19 at 22:00; Stop 10/09/19 at 21:59; Status DC Potassium Acetate 60 meq/Magnesium Sulfate 14 meq/ Multivitamins 10 ml/Chromium/ Copper/Manganese/ Seleni/Zn 1 ml/ Insulin Human Regular 15 unit/ Total Parenteral Nutrition/Amino Acids/Dextrose/ Fat Emulsion Intravenous 1,920 ml @ 80 mls/hr TPN CONT IV Last administered on 10/09/19at 22:22; Start 10/09/19 at 22:00; Stop 10/10/19 at 21:59; Status DC Furosemide (Lasix) 20 mg 1X ONCE IVP Last administered on 10/10/19at 11:07; Start 10/10/19 at 10:30; Stop 10/10/19 at 10:34; Status DC Potassium Acetate 60 meq/Magnesium Sulfate 14 meq/ Multivitamins 10 ml/Chromium/ Copper/Manganese/ Seleni/Zn 1 ml/ Insulin Human Regular 15 unit/ Sodium Chloride 20 meq/Total Parenteral Nutrition/Amino Acids/Dextrose/ Fat Emulsion Intravenous 1,920 ml @ 80 mls/hr TPN CONT IV Last administered on 10/10/19at 21:54; Start 10/10/19 at 22:00; Stop 10/11/19 at 21:59; Status DC Potassium Acetate 30 meq/Magnesium Sulfate 14 meq/ Multivitamins 10 ml/Chromium/ Copper/Manganese/ Seleni/Zn 1 ml/ Insulin Human Regular 15 unit/ Sodium Chloride 20 meq/Potassium Chloride 30 meq/ Total Parenteral Nutrition/Amino Acids/Dextrose/ Fat Emulsion Intravenous 1,920 ml @ 80 mls/hr TPN CONT IV Last administered on 10/11/19at 21:46; Start 10/11/19 at 22:00; Stop 10/12/19 at 21:59; Status DC Sodium Chloride 80 meq/Potassium Chloride 30 meq/ Potassium Acetate 30 meq/Magnesium Sulfate 14 meq/ Multivitamins 10 ml/Chromium/ Copper/Manganese/ Seleni/Zn 1 ml/ Insulin Human Regular 15 unit/ Total Parenteral Nutrition/Amino Acids/Dextrose/ Fat Emulsion Intravenous 1,920 ml @ 80 mls/hr TPN CONT IV Last administered on 10/12/19at 22:33; Start 10/12/19 at 22:00; Stop 10/13/19 at 21:59; Status DC Furosemide (Lasix) 40 mg 1X ONCE IVP Last administered on 10/12/19at 16:27; Start 10/12/19 at 15:30; Stop 10/12/19 at 15:33; Status DC Albumin Human 250 ml @ 62.5 mls/hr 1X ONCE IV Last administered on 10/12/19at 16:27; Start 10/12/19 at 15:30; Stop 10/12/19 at 19:29; Status DC Sodium Chloride 80 meq/Potassium Chloride 30 meq/ Potassium Acetate 30 meq/Magnesium Sulfate 14 meq/ Multivitamins 10 ml/Chromium/ Copper/Manganese/ Seleni/Zn 1 ml/ Insulin Human Regular 15 unit/ Total Parenteral Nutrition/Amino Acids/Dextrose/ Fat Emulsion Intravenous 1,920 ml @ 80 mls/hr TPN CONT IV Last administered on 10/13/19at 22:25; Start 10/13/19 at 22:00; Stop 10/14/19 at 21:59; Status DC Sodium Chloride 80 meq/Potassium Chloride 30 meq/ Potassium Acetate 30 meq/Magnesium Sulfate 14 meq/ Multivitamins 10 ml/Chromium/ Copper/Manganese/ Seleni/Zn 1 ml/ Insulin Human Regular 15 unit/ Total Parenteral Nutrition/Amino Acids/Dextrose/ Fat Emulsion Intravenous 1,920 ml @ 80 mls/hr TPN CONT IV Last administered on 10/14/19at 21:32; Start 10/14/19 at 22:00; Stop 10/15/19 at 21:59; Status DC Sodium Chloride 80 meq/Potassium Chloride 30 meq/ Potassium Acetate 30 meq/Magnesium Sulfate 14 meq/ Multivitamins 10 ml/Chromium/ Copper/Manganese/ Seleni/Zn 1 ml/ Insulin Human Regular 15 unit/ Total Parenteral Nutrition/Amino Acids/Dextrose/ Fat Emulsion Intravenous 1,920 ml @ 80 mls/hr TPN CONT IV Last administered on 10/15/19at 21:53; Start 10/15/19 at 22:00; Stop 10/16/19 at 21:59; Status DC Acetylcysteine (Mucomyst 20% Resp Treatment) 600 mg RTBID NEB Last administered on 10/28/19at 20:07; Start 10/15/19 at 12:00 Sodium Chloride 80 meq/Potassium Chloride 30 meq/ Potassium Acetate 30 meq/Magnesium Sulfate 14 meq/ Multivitamins 10 ml/Chromium/ Copper/Manganese/ Seleni/Zn 1 ml/ Insulin Human Regular 15 unit/ Total Parenteral Nutrition/Amino Acids/Dextrose/ Fat Emulsion Intravenous 1,920 ml @ 80 mls/hr TPN CONT IV Last administered on 10/16/19at 22:06; Start 10/16/19 at 22:00; Stop 10/17/19 at 21:59; Status DC Meropenem 500 mg/ Sodium Chloride 50 ml @ 100 mls/hr Q6HRS IV Last administered on 10/29/19at 05:34; Start 10/16/19 at 18:00 Daptomycin 500 mg/ Sodium Chloride 50 ml @ 100 mls/hr Q24H IV Last administered on 10/24/19at 21:47; Start 10/16/19 at 19:00; Stop 10/25/19 at 08:13; Status DC Sodium Chloride 80 meq/Potassium Chloride 30 meq/ Potassium Acetate 30 meq/Magnesium Sulfate 14 meq/ Multivitamins 10 ml/Chromium/ Copper/Manganese/ Seleni/Zn 1 ml/ Insulin Human Regular 15 unit/ Total Parenteral Nutrition/Amino Acids/Dextrose/ Fat Emulsion Intravenous 1,920 ml @ 80 mls/hr TPN CONT IV Last administered on 10/17/19at 22:09; Start 10/17/19 at 22:00; Stop 10/18/19 at 21:59; Status DC Heparin Sodium (Porcine) 1000 unit/Sodium Chloride 1,001 ml @ 1,001 mls/hr 1X ONCE IRR ; Start 10/18/19 at 06:00; Stop 10/18/19 at 06:59; Status DC Propofol (Diprivan) 200 mg STK-MED ONCE IV ; Start 10/18/19 at 07:44; Stop 10/18/19 at 07:44; Status DC Lidocaine HCl (Lidocaine Pf 2% Vial) 5 ml STK-MED ONCE .ROUTE ; Start 10/18/19 at 07:44; Stop 10/18/19 at 07:44; Status DC Fentanyl Citrate (Fentanyl 2ml Vial) 100 mcg STK-MED ONCE .ROUTE ; Start 10/18/19 at 07:44; Stop 10/18/19 at 07:44; Status DC Rocuronium [place] (Zemuron) 100 mg STK-MED ONCE .ROUTE ; Start 10/18/19 at 07:44; Stop 10/18/19 at 07:44; Status DC Micafungin Sodium 100 mg/Dextrose 100 ml @ 100 mls/hr Q24H IV Last administered on 10/28/19at 11:59; Start 10/18/19 at 08:30 Bupivacaine HCl/ Epinephrine Bitart (Sensorcain-Epi 0.5%-1:264654 Mpf) 30 ml STK-MED ONCE .ROUTE ; Start 10/18/19 at 08:34; Stop 10/18/19 at 08:35; Status DC Iohexol (Omnipaque 300 Mg/ml) 50 ml STK-MED ONCE .ROUTE Last administered on 10/18/19at 13:30; Start 10/18/19 at 08:35; Stop 10/18/19 at 08:35; Status DC Sodium Chloride 80 meq/Potassium Chloride 30 meq/ Potassium Acetate 30 meq/Magnesium Sulfate 14 meq/ Multivitamins 10 ml/Chromium/ Copper/Manganese/ Seleni/Zn 1 ml/ Insulin Human Regular 15 unit/ Total Parenteral Nutrition/Amino Acids/Dextrose/ Fat Emulsion Intravenous 1,920 ml @ 80 mls/hr TPN CONT IV Last administered on 10/19/19at 01:22; Start 10/18/19 at 22:00; Stop 10/19/19 at 21:59; Status DC Phenylephrine HCl (Brayden-Synephrine Inj) 10 mg STK-MED ONCE .ROUTE ; Start 10/18/19 at 10:15; Stop 10/18/19 at 10:15; Status DC Desflurane (Suprane) 90 ml STK-MED ONCE IH ; Start 10/18/19 at 10:18; Stop 10/18/19 at 10:19; Status DC Albumin Human 500 ml @ As Directed STK-MED ONCE IV ; Start 10/18/19 at 11:06; Stop 10/18/19 at 11:06; Status DC Vasopressin (Vasostrict) 20 unit STK-MED ONCE .ROUTE ; Start 10/18/19 at 12:23; Stop 10/18/19 at 12:23; Status DC Phenylephrine HCl (Brayden-Synephrine Inj) 10 mg STK-MED ONCE .ROUTE ; Start 10/18/19 at 13:33; Stop 10/18/19 at 13:33; Status DC Phenylephrine HCl (Brayden-Synephrine Inj) 10 mg STK-MED ONCE .ROUTE ; Start 10/18/19 at 13:33; Stop 10/18/19 at 13:33; Status DC Ondansetron HCl (Zofran) 4 mg STK-MED ONCE .ROUTE ; Start 10/18/19 at 13:33; Stop 10/18/19 at 13:33; Status DC Enoxaparin Sodium (Lovenox 40mg Syringe) 40 mg Q24H SQ Last administered on 10/29/19at 08:04; Start 10/19/19 at 08:00 Sodium Chloride (Normal Saline Flush) 3 ml QSHIFT PRN IV AFTER MEDS AND BLOOD DRAWS; Start 10/18/19 at 14:45 Naloxone HCl (Narcan) 0.4 mg PRN Q2MIN PRN IV SEE INSTRUCTIONS; Start 10/18/19 at 14:45 Sodium Chloride 1,000 ml @ 25 mls/hr Q24H IV Last administered on 10/26/19at 21:15; Start 10/18/19 at 14:33 Morphine Sulfate (Morphine Sulfate) 1 mg PRN Q1HR PRN IV PAIN; Start 10/18/19 at 14:45 Midazolam HCl 100 mg/Sodium Chloride 100 ml @ 1 mls/hr CONT PRN IV SEE I/O RECORD Last administered on 10/21/19at 18:48; Start 10/18/19 at 14:45 Phenylephrine HCl (PHENYLEPHRINE in 0.9% NACL PF) 1 mg STK-MED ONCE IV ; Start 10/18/19 at 14:44; Stop 10/18/19 at 14:45; Status DC Ephedrine Sulfate (ePHEDrine PF IN SALINE SYRINGE) 50 mg STK-MED ONCE IV ; Start 10/18/19 at 14:45; Stop 10/18/19 at 14:45; Status DC Vasopressin 20 unit/Dextrose 101 ml @ 12 mls/hr CONT PRN IV SEE I/O RECORD Last administered on 10/25/19at 04:17; Start 10/18/19 at 15:30 Sodium Chloride 1,000 ml @ 1,000 mls/hr 1X ONCE IV Last administered on 10/18/19at 15:42; Start 10/18/19 at 15:45; Stop 10/18/19 at 16:44; Status DC Albumin Human 500 ml @ 125 mls/hr 1X ONCE IV ; Start 10/18/19 at 16:00; Stop 10/18/19 at 19:59; Status DC Albumin Human 500 ml @ 125 mls/hr PRN Q1HR PRN IV PER PROTOCOL; Start 10/18/19 at 15:45 Magnesium Sulfate 50 ml @ 25 mls/hr 1X ONCE IV Last administered on 10/18/19at 17:02; Start 10/18/19 at 16:30; Stop 10/18/19 at 18:29; Status DC Sodium Bicarbonate (Sodium Bicarb Adult 8.4% Syr) 50 meq STK-MED ONCE .ROUTE ; Start 10/18/19 at 16:20; Stop 10/18/19 at 16:20; Status DC Sodium Bicarbonate (Sodium Bicarb Adult 8.4% Syr) 100 meq 1X ONCE IV Last administered on 10/18/19at 17:07; Start 10/18/19 at 16:30; Stop 10/18/19 at 16: 31; Status DC Sodium Bicarbonate 150 meq/Dextrose 1,150 ml @ 75 mls/hr 1X ONCE IV Last administered on 10/18/19at 20:02; Start 10/18/19 at 16:30; Stop 10/19/19 at 07:49; Status DC Sodium Chloride 80 meq/Potassium Chloride 30 meq/ Potassium Acetate 30 me q/Magnesium Sulfate 14 meq/ Multivitamins 10 ml/Chromium/ Copper/Manganese/ Seleni/Zn 1 ml/ Insulin Human Regular 15 unit/ Total Parenteral Nutrition/Amino Acids/Dextrose/ Fat Emulsion Intravenous 1,920 ml @ 80 mls/hr TPN CONT IV Last administered on 10/19/19at 23:05; Start 10/19/19 at 22:00; Stop 10/20/19 at 21:59; Status DC Sodium Chloride 100 meq/Potassium Chloride 30 meq/ Potassium Acetate 30 meq/Magnesium Sulfate 12 meq/ Multivitamins 10 ml/Chromium/ Copper/Manganese/ Seleni/Zn 1 ml/ Insulin Human Regular 15 unit/ Total Parenteral Nutrition/Amino Acids/Dextrose/ Fat Emulsion Intravenous 1,920 ml @ 80 mls/hr TPN CONT IV Last administered on 10/20/19at 21:52; Start 10/20/19 at 22:00; Stop 10/21/19 at 21:59; Status DC Sodium Chloride 100 meq/Potassium Chloride 30 meq/ Potassium Acetate 30 meq/Magnesium Sulfate 12 meq/ Multivitamins 10 ml/Chromium/ Copper/Manganese/ Seleni/Zn 1 ml/ Insulin Human Regular 15 unit/ Total Parenteral Nutrition/Amino Acids/Dextrose/ Fat Emulsion Intravenous 1,920 ml @ 80 mls/hr TPN CONT IV Last administered on 10/21/19at 21:46; Start 10/21/19 at 22:00; Stop 10/22/19 at 21:59; Status DC Sodium Chloride 100 meq/Potassium Chloride 30 meq/ Potassium Acetate 30 meq/Magnesium Sulfate 12 meq/ Multivitamins 10 ml/Chromium/ Copper/Manganese/ Seleni/Zn 1 ml/ Insulin Human Regular 15 unit/ Total Parenteral Nutrition/Amino Acids/Dextrose/ Fat Emulsion Intravenous 1,800 ml @ 75 mls/hr TPN CONT IV Last administered on 10/22/19at 22:04; Start 10/22/19 at 22:00; Stop 10/23/19 at 21:59; Status DC Fentanyl Citrate 55 ml @ 0 mls/hr CONT PRN IV SEE COMMENTS Last administered on 10/24/19at 23:55; Start 10/22/19 at 13:00; Stop 10/27/19 at 17:28; Status DC Sodium Chloride 100 meq/Potassium Chloride 30 meq/ Potassium Acetate 30 meq/Magnesium Sulfate 12 meq/ Multivitamins 10 ml/Chromium/ Copper/Manganese/ Seleni/Zn 1 ml/ Insulin Human Regular 15 unit/ Total Parenteral Nutrition/Amino Acids/Dextrose/ Fat Emulsion Intravenous 1,680 ml @ 70 mls/hr TPN CONT IV Last administered on 10/23/19at 21:23; Start 10/23/19 at 22:00; Stop 10/24/19 at 21:59; Status DC Sodium Chloride 110 meq/Potassium Chloride 30 meq/ Potassium Acetate 30 meq/Magnesium Sulfate 15 meq/ Multivitamins 10 ml/Chromium/ Copper/Manganese/ Seleni/Zn 1 ml/ Insulin Human Regular 15 unit/ Total Parenteral Nutrition/Amino Acids/Dextrose/ Fat Emulsion Intravenous 1,680 ml @ 70 mls/hr TPN CONT IV Last administered on 10/24/19at 21:48; Start 10/24/19 at 22:00; Stop 10/25/19 at 21:59; Status DC Sodium Chloride 110 meq/Potassium Chloride 30 meq/ Potassium Acetate 30 meq/Magnesium Sulfate 15 meq/ Multivitamins 10 ml/Chromium/ Copper/Manganese/ Seleni/Zn 1 ml/ Insulin Human Regular 15 unit/ Total Parenteral Nutrition/Amino Acids/Dextrose/ Fat Emulsion Intravenous 1,680 ml @ 70 mls/hr TPN CONT IV Last administered on 10/25/19at 21:33; Start 10/25/19 at 22:00; Stop 10/26/19 at 21:59; Status DC Sodium Chloride 110 meq/Potassium Chloride 30 meq/ Potassium Acetate 30 meq/Magnesium Sulfate 15 meq/ Multivitamins 10 ml/Chromium/ Copper/Manganese/ Seleni/Zn 1 ml/ Insulin Human Regular 15 unit/ Total Parenteral Nutrition/Amino Acids/Dextrose/ Fat Emulsion Intravenous 1,680 ml @ 70 mls/hr TPN CONT IV Last administered on 10/26/19at 21:51; Start 10/26/19 at 22:00; Stop 10/27/19 at 21:59; Status DC Sodium Chloride 90 meq/Potassium Chloride 30 meq/ Potassium Acetate 30 meq/Magnesium Sulfate 15 meq/ Multivitamins 10 ml/Chromium/ Copper/Manganese/ Seleni/Zn 1 ml/ Insulin Human Regular 15 unit/ Total Parenteral Nutrition/Amino Acids/Dextrose/ Fat Emulsion Intravenous 1,680 ml @ 70 mls/hr TPN CONT IV Last administered on 10/27/19at 22:38; Start 10/27/19 at 22:00; Stop 10/28/19 at 21:59; Status DC Fentanyl Citrate 30 ml @ 0 mls/hr CONT PRN IV SEE I/O RECORD; Start 10/27/19 at 17:30 Fentanyl (Duragesic 12mcg/ Hr Patch) 1 patch Q3DAYS TD Last administered on 10/28/19at 18:03; Start 10/28/19 at 09:00 Sodium Chloride 90 meq/Potassium Chloride 30 meq/ Potassium Acetate 30 meq/Magnesium Sulfate 15 meq/ Multivitamins 10 ml/Chromium/ Copper/Manganese/ Seleni/Zn 1 ml/ Insulin Human Regular 15 unit/ Total Parenteral Nutrition/Amino Acids/Dextrose/ Fat Emulsion Intravenous 1,680 ml @ 70 mls/hr TPN CONT IV Last administered on 10/28/19at 21:59; Start 10/28/19 at 22:00; Stop 10/29/19 at 21:59 Active Scripts Active Reported Bisoprolol Fumarate 5 Mg Tablet 10 Mg PO DAILY Vitals/I & O Vital Sign - Last 24 Hours 10/28/19 10/28/19 10/28/19 10/28/19 08:32 09:00 10:00 11:00 Pulse 108 96 96 94 Resp 24 24 24 B/P (MAP) 172/101 165/109 (127) Pulse Ox 100 100 100 O2 Delivery Venturi Mask Venturi Mask Venturi Mask 10/28/19 10/28/19 10/28/19 10/28/19 11:16 12:00 12:00 13:00 Temp 99.0 99.0 Pulse 102 104 Resp 24 24 B/P (MAP) 171/98 (122) 167/106 (126) Pulse Ox 100 100 100 O2 Delivery Tracheal Collar Trach Collar Venturi Mask Venturi Mask O2 Flow Rate 10.0 10.0 10/28/19 10/28/19 10/28/19 10/28/19 14:00 15:00 15:40 16:00 Pulse 102 100 Resp 22 22 B/P (MAP) 159/96 (117) 156/91 (112) Pulse Ox 100 100 100 O2 Delivery Venturi Mask Venturi Mask Tracheal Collar Trach Collar O2 Flow Rate 10.0 10.0 10/28/19 10/28/19 10/28/19 10/28/19 16:00 17:00 18:00 18:03 Temp 99.0 99.0 Pulse 100 Resp 22 20 20 B/P (MAP) 171/100 (123) 165/92 (116) 166/93 (117) Pulse Ox 100 100 100 O2 Delivery Venturi Mask Venturi Mask Venturi Mask Venturi Mask 10/28/19 10/28/19 10/28/19 10/28/19 19:00 20:00 20:00 20:07 Temp 99.4 99.4 Pulse 120 108 Resp 20 20 B/P (MAP) 158/92 (114) 171/99 (123) Pulse Ox 100 100 100 O2 Delivery Trach shield Trach shield Trach Collar Tracheal Collar O2 Flow Rate 10.0 10.0 10/28/19 10/28/19 10/28/19 10/28/19 21:00 22:00 22:00 22:03 Pulse 112 110 Resp 20 24 24 24 B/P (MAP) 163/99 (120) 165/103 (123) Pulse Ox 100 100 100 99 O2 Delivery Trach shield Tracheal Collar Trach shield Tracheal Collar O2 Flow Rate 10.0 10.0 10/28/19 10/28/19 10/29/19 10/29/19 22:30 23:00 00:00 00:00 Temp 99.3 99.3 Pulse 107 104 Resp 24 24 B/P (MAP) 148/88 (108) 156/90 (112) Pulse Ox 99 100 100 O2 Delivery Tracheal Collar Trach shield Trach Collar Trach shield O2 Flow Rate 10.0 10.0 10/29/19 10/29/19 10/29/19 10/29/19 01:00 02:00 03:00 04:00 Pulse 108 114 112 Resp 24 24 29 B/P (MAP) 163/98 (119) 161/95 (117) 160/94 (116) Pulse Ox 100 100 100 O2 Delivery Trach shield Trach shield Trach shield Trach Collar O2 Flow Rate 10.0 10/29/19 10/29/19 10/29/19 10/29/19 04:00 04:36 05:00 05:06 Temp 99.6 99.6 Pulse 115 115 Resp 34 32 34 33 B/P (MAP) 189/105 (133) 162/91 (114) Pulse Ox 100 98 100 98 O2 Delivery Trach shield Tracheal Collar Trach shield Tracheal Collar O2 Flow Rate 10.0 10.0 10/29/19 10/29/19 06:00 08:03 Pulse 120 126 Resp 31 B/P (MAP) 145/93 (110) 163/87 Pulse Ox 100 O2 Delivery Trach shield Intake and Output 10/28/19 10/28/19 10/29/19 15:00 23:00 07:00 Intake Total 150 ml 873 ml 1686 ml Output Total 400 ml 1245 ml 1405 ml Balance -250 ml -372 ml 281 ml Justicifation of Admission Dx: Justifications for Admission: Justification of Admission Dx: Yes DAVIN LANDEROS MD Oct 29, 2019 08:28
[2019-10-29] MEDS: ACETYLCYSTEINE 20% for RESP TX 600 MG/3 ML. NEB SCH ×2 (08:39→20:00)
--- NOTE | 2019-10-29 08:44 | PDOC ---
Infectious Disease Note Subjective Subjective More alert. Seems a little confused Occ nausea and pain Off vent TPN off vasopressin, off levophed Vital Sign Vital Signs Vital Signs Date Time Temp Pulse Resp B/P (MAP) Pulse Ox O2 Delivery O2 Flow Rate FiO2 10/29/19 08:03 126 163/87 10/29/19 06:00 31 100 Trach shield 10/29/19 05:06 10.0 10/29/19 04:00 99.6 99.6 Physical Exam PHYSICAL EXAM GENERAL: Alert, NAD tired appearing but some better HEENT: Pupils equal, oral cavity dry. + NGT NECK: Tracheostomy LUNGS: Diminished aeration bases, CT on left HEART: S1, S2, regular w/ PVCs ABDOMEN: Sightly less distended, bowel sounds hypoactive, soft, goyal x 2, 3 KAYLIN drains, G-J tube and + wound vac : Lind in place EXTREMITIES: Generalized edema, no cyanosis. SCDs & Podus boots bilaterally SKIN: warm touch. No signs of rash. LUE-PICC without signs of complications LUE art-line out, mottling left forearm about ole art-line site is improving. RP palpable, cap refill brisk. NEURO: alert and some responsive - tracking Labs Lab Laboratory Tests Test 10/28/19 18:00 10/29/19 00:38 10/29/19 06:10 Glucose (Fingerstick) 138 mg/dL (70-99) 147 mg/dL (70-99) White Blood Count 16.0 x10^3/uL (4.0-11.0) Red Blood Count 2.99 x10^6/uL (3.50-5.40) Hemoglobin 8.8 g/dL (12.0-15.5) Hematocrit 26.6 % (36.0-47.0) Mean Corpuscular Volume 89 fL (79-100) Mean Corpuscular Hemoglobin 29 pg (25-35) Mean Corpuscular Hemoglobin Concent 33 g/dL (31-37) Red Cell Distribution Width 14.8 % (11.5-14.5) Platelet Count 728 x10^3/uL (140-400) Neutrophils (%) (Auto) 87 % (31-73) Lymphocytes (%) (Auto) 6 % (24-48) Monocytes (%) (Auto) 7 % (0-9) Eosinophils (%) (Auto) 1 % (0-3) Basophils (%) (Auto) 0 % (0-3) Neutrophils # (Auto) 13.9 x10^3/uL (1.8-7.7) Lymphocytes # (Auto) 0.9 x10^3/uL (1.0-4.8) Monocytes # (Auto) 1.0 x10^3/uL (0.0-1.1) Eosinophils # (Auto) 0.1 x10^3/uL (0.0-0.7) Basophils # (Auto) 0.0 x10^3/uL (0.0-0.2) Sodium Level 142 mmol/L (136-145) Potassium Level 4.7 mmol/L (3.5-5.1) Chloride Level 107 mmol/L (98-107) Carbon Dioxide Level 31 mmol/L (21-32) Anion Gap 4 (6-14) Blood Urea Nitrogen 13 mg/dL (7-20) Creatinine 0.5 mg/dL (0.6-1.0) Estimated GFR (Cockcroft-Gault) 131.1 Glucose Level 169 mg/dL (70-99) Calcium Level 9.4 mg/dL (8.5-10.1) Micro 6/7 GRAM STAIN Final Final GRAM NEGATIVE RODS:MODERATE SQUAMOUS EPI CELL:NOT APPLICABLE PMN (WBCs):RARE YEAST:MODERATE Unless otherwise specified, Testing Performed by: [address] [address] For Inquires, the Physician may contact the Microbiology department at [phone] ANAEROBIC-AEROBIC CULTURE Preliminary Preliminary MANY GRAM NEGATIVE RODS on 09/27/19 at 1158 FINAL ID= [PSEUDOMONAS AERUGINOSA] PSEUDOMONAS AERUGINOSA ANTIMICROBIAL SUSCEPTIBILITY Preliminary Comment NEG ALEXANDRA 56 PSEUDOMONAS AERUGINOSA ANTIBIOTIC RESULT INTERPRETATION AMIKACIN <=16 S AZTREONAM >16 R CEFTAZIDIME >16 R CIPROFLOXACIN <=0.25 S CEFEPIME 16 I CEFTAZIDIME/AVIBACTAM <=4 S GENTAMICIN <=2 S CONTINUED ON NEXT PAGE RUN DATE: 09/29/19 [facility] *LIVE* PAGE 2 RUN TIME: 1016 Specimen Inquiry SPEC: [id number] PATIENT: SCOTT CUELLAR [id number] (Continued) ------- ----- Procedure Result ANTIMICROBIAL SUSCEPTIBILITY Preliminary (continued) LEVOFLOXACIN <=0.5 S MEROPENEM <=1 S PIPERACILLIN/TAZOBACTAM 64 S TOBRAMYCIN <=2 S Unless otherwise specified, Testing Performed by: [facility] [address] [place] [address] For Inquires, the Physician may contact the Microbiology department at [phone] CT Scan 09/23 IMPRESSION: 1. Removal of the percutaneous pigtail drainage catheters since the prior exam. Sequela of pancreatitis with extensive pseudocysts again demonstrated, the right-sided collections are slightly larger since the prior exam, the left-sided collections are stable. See above. 2. Moderate to large left pleural effusion with atelectasis and collapse of most of the left lower lobe, stable. Small right pleural effusion is stable. 3. Gallstone. Objective Assessment Patient with prolonged hospitalization more than 3 months Multiple medical problems Multiple surgical procedures Loose stool - occ stooling expected as part of normal bowel function but c-diff sent S/P Exp. Lap, SAURABH, subtotal cholecystectomy with cholangiogram, G-J tube placement & pancreatic necrosectomy on October 17 YEAST parapsilosis/PSA Leukocytosis - mild increase today but all parameters are up Fever intermittently source likely GI Severe protein malnutrition Acute gallstone pancreatitis with persistent necrosis -CT a/p 07/27. Increased ascites. 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 status post KAYLIN drain placement; C. parapsilosis. s/p drain 08/23 + yeast & high amylase; s/p additional drain on 08/25. Drains removed. -08/23. fluid devyn parapsilosis fluid, amylase high - 09/23 showed multiple pseudocysts, slight larger on the right. s/p drains x 3, 09/24. + PSAE (MDRO-R Cefepime, Zosyn ALEXANDRA < 64) and yeast, -09/24 s/p drain replacement x 3; fluid cult PSAE (MDRO), yeast; treate d Ascites s/p paracentesis 08/02 & 08/23. C. parapsilosis Cholelithiasis with thickening of the gallbladder wall. JUANA, Hyperkalemia, Metabolic acidosis off dialysis Acute hypoxic resp failure. trach/vent. sputum 09/30 + PSAE (I merrem) Pleural effusions s/p left thoracentesis, 08/29. no culture. s/p left chest tube, 10/02 no growth Hypocalcemia Prediabetes HTN Anemia s/p RBCs Plan Plan of Care F/u C-diff - neg PSA from 10/17 I to Meropenem but WBC improving so will try to hold changing abx to Cipro and or Avycaz to try and save potential abx options Monitor Abd distension ? mild improvement today ? with BM continue merrem and micafungin but d/c'd Dapto 10/24 Monitor labs in am - if WBC trends may need CT scan wound care /drain management as directed Contact isolation for CRE/MDRO Critically ill D/w nursing WILLY BARAKAT MD Oct 29, 2019 08:44
[2019-10-29] MEDS: MICAFUNGIN 100 MG in IV DEXTROSE 5% 100ML 100 ML IV SCH (09:26)
--- NOTE | 2019-10-29 11:53 | PDOC ---
PULMONARY PROGRESS NOTES Subjective trach, on tm, no sob is weak Vitals Vital Signs Date Time Temp Pulse Resp B/P (MAP) Pulse Ox O2 Delivery O2 Flow Rate FiO2 10/29/19 10:29 23 98 Tracheal Collar 6.0 10/29/19 10:00 118 156/96 (116) 10/29/19 08:00 99.0 99.0 General: Alert HEENT: Other (trach site ok) Lungs: Crackles Cardiovascular: S1, S2 Abdomen: Soft, Non-tender, Other (multiple KAYLIN drains ) Neuro Exam: Alert Extremities: Other (+1 BLE edema) Skin: Warm Labs Laboratory Tests Test 10/27/19 12:48 10/27/19 23:04 10/28/19 05:30 10/28/19 05:50 Glucose (Fingerstick) 131 mg/dL (70-99) 138 mg/dL (70-99) Clostridium difficile Toxin (PCR) Negative (NEGATIVE) White Blood Count 15.4 x10^3/uL (4.0-11.0) Red Blood Count 2.86 x10^6/uL (3.50-5.40) Hemoglobin 8.4 g/dL (12.0-15.5) Hematocrit 25.4 % (36.0-47.0) Mean Corpuscular Volume 89 fL (79-100) Mean Corpuscular Hemoglobin 29 pg (25-35) Mean Corpuscular Hemoglobin Concent 33 g/dL (31-37) Red Cell Distribution Width 15.0 % (11.5-14.5) Platelet Count 681 x10^3/uL (140-400) Neutrophils (%) (Auto) 84 % (31-73) Lymphocytes (%) (Auto) 8 % (24-48) Monocytes (%) (Auto) 7 % (0-9) Eosinophils (%) (Auto) 1 % (0-3) Basophils (%) (Auto) 0 % (0-3) Neutrophils # (Auto) 12.9 x10^3/uL (1.8-7.7) Lymphocytes # (Auto) 1.2 x10^3/uL (1.0-4.8) Monocytes # (Auto) 1.0 x10^3/uL (0.0-1.1) Eosinophils # (Auto) 0.2 x10^3/uL (0.0-0.7) Basophils # (Auto) 0.1 x10^3/uL (0.0-0.2) Sodium Level 143 mmol/L (136-145) Potassium Level 4.1 mmol/L (3.5-5.1) Chloride Level 107 mmol/L (98-107) Carbon Dioxide Level 32 mmol/L (21-32) Anion Gap 4 (6-14) Blood Urea Nitrogen 15 mg/dL (7-20) Creatinine 0.5 mg/dL (0.6-1.0) Estimated GFR (Cockcroft-Gault) 131.1 Glucose Level 151 mg/dL (70-99) Calcium Level 9.9 mg/dL (8.5-10.1) Test 10/28/19 06:07 10/28/19 18:00 10/29/19 00:38 10/29/19 06:10 Glucose (Fingerstick) 103 mg/dL (70-99) 138 mg/dL (70-99) 147 mg/dL (70-99) White Blood Count 16.0 x10^3/uL (4.0-11.0) Red Blood Count 2.99 x10^6/uL (3.50-5.40) Hemoglobin 8.8 g/dL (12.0-15.5) Hematocrit 26.6 % (36.0-47.0) Mean Corpuscular Volume 89 fL (79-100) Mean Corpuscular Hemoglobin 29 pg (25-35) Mean Corpuscular Hemoglobin Concent 33 g/dL (31-37) Red Cell Distribution Width 14.8 % (11.5-14.5) Platelet Count 728 x10^3/uL (140-400) Neutrophils (%) (Auto) 87 % (31-73) Lymphocytes (%) (Auto) 6 % (24-48) Monocytes (%) (Auto) 7 % (0-9) Eosinophils (%) (Auto) 1 % (0-3) Basophils (%) (Auto) 0 % (0-3) Neutrophils # (Auto) 13.9 x10^3/uL (1.8-7.7) Lymphocytes # (Auto) 0.9 x10^3/uL (1.0-4.8) Monocytes # (Auto) 1.0 x10^3/uL (0.0-1.1) Eosinophils # (Auto) 0.1 x10^3/uL (0.0-0.7) Basophils # (Auto) 0.0 x10^3/uL (0.0-0.2) Sodium Level 142 mmol/L (136-145) Potassium Level 4.7 mmol/L (3.5-5.1) Chloride Level 107 mmol/L (98-107) Carbon Dioxide Level 31 mmol/L (21-32) Anion Gap 4 (6-14) Blood Urea Nitrogen 13 mg/dL (7-20) Creatinine 0.5 mg/dL (0.6-1.0) Estimated GFR (Cockcroft-Gault) 131.1 Glucose Level 169 mg/dL (70-99) Calcium Level 9.4 mg/dL (8.5-10.1) Test 10/29/19 06:14 10/29/19 11:17 Glucose (Fingerstick) 159 mg/dL (70-99) 144 mg/dL (70-99) Laboratory Tests Test 10/28/19 18:00 10/29/19 00:38 10/29/19 06:10 10/29/19 06:14 Glucose (Fingerstick) 138 mg/dL (70-99) 147 mg/dL (70-99) 159 mg/dL (70-99) White Blood Count 16.0 x10^3/uL (4.0-11.0) Red Blood Count 2.99 x10^6/uL (3.50-5.40) Hemoglobin 8.8 g/dL (12.0-15.5) Hematocrit 26.6 % (36.0-47.0) Mean Corpuscular Volume 89 fL (79-100) Mean Corpuscular Hemoglobin 29 pg (25-35) Mean Corpuscular Hemoglobin Concent 33 g/dL (31-37) Red Cell Distribution Width 14.8 % (11.5-14.5) Platelet Count 728 x10^3/uL (140-400) Neutrophils (%) (Auto) 87 % (31-73) Lymphocytes (%) (Auto) 6 % (24-48) Monocytes (%) (Auto) 7 % (0-9) Eosinophils (%) (Auto) 1 % (0-3) Basophils (%) (Auto) 0 % (0-3) Neutrophils # (Auto) 13.9 x10^3/uL (1.8-7.7) Lymphocytes # (Auto) 0.9 x10^3/uL (1.0-4.8) Monocytes # (Auto) 1.0 x10^3/uL (0.0-1.1) Eosinophils # (Auto) 0.1 x10^3/uL (0.0-0.7) Basophils # (Auto) 0.0 x10^3/uL (0.0-0.2) Sodium Level 142 mmol/L (136-145) Potassium Level 4.7 mmol/L (3.5-5.1) Chloride Level 107 mmol/L (98-107) Carbon Dioxide Level 31 mmol/L (21-32) Anion Gap 4 (6-14) Blood Urea Nitrogen 13 mg/dL (7-20) Creatinine 0.5 mg/dL (0.6-1.0) Estimated GFR (Cockcroft-Gault) 131.1 Glucose Level 169 mg/dL (70-99) Calcium Level 9.4 mg/dL (8.5-10.1) Test 10/29/19 11:17 Glucose (Fingerstick) 144 mg/dL (70-99) Medications Active Scripts Medications Dose Route/Sig Max Daily Dose Days Date Category Bisoprolol Fumarate 5 Mg Tablet 10 Mg PO DAILY 07/04/19 Reported Comments CXR reviewed IMPRESSION: No significant interval change compared to 10/13/2019. ct abdomen /pelvis 09/23 1. Removal of the percutaneous pigtail drainage catheters since the prior exam. Sequela of pancreatitis with extensive pseudocysts again demonstrated, the right-sided collections are slightly larger since the prior exam, the left-sided collections are stable. See above. 2. Moderate to large left pleural effusion with atelectasis and collapse of most of the left lower lobe, stable. Small right pleural effusion is stable. 3. Gallstone. ct chest 10/02 reviewed GRAM NEG COCCOBACILLI:MANY SQUAMOUS EPI CELL:RARE PMN (WBCs):FEW Unless otherwise specified, Testing Performed by: [address] [address] For Inquires, the Physician may contact the Microbiology department at [phone] RESPIRATORY CULTURE Final Final MANY GRAM NEGATIVE RODS on 10/03/19 at 1107 FINAL ID= [PSEUDOMONAS AERUGINOSA] MICRO CHARGES PSEUDOMONAS AERUGINOSA ANTIMICROBIAL SUSCEPTIBILITY Final Comment NEG ALEXANDRA 56 PSEUDOMONAS AERUGINOSA ANTIBIOTIC RESULT INTERPRETATION AMIKACIN <=16 S AZTREONAM <=4 S CEFTAZIDIME <=1 S CIPROFLOXACIN <=0.25 S CEFEPIME <=2 S CEFTAZIDIME/AVIBACTAM <=4 S GENTAMICIN <=2 S LEVOFLOXACIN <=0.5 S Impression . IMPRESSION: 1. Acute hypoxemic respiratory failure secondary to ARDS status post trach, developed anemia 09/24, blood drainage from RLQ abdomen drain site, and surrounding firmness / developed septic shock 09/24 from abdomen source, required levo /7 s/p 3 new drains 09/24 with brown color drainage, 2. Gallstone pancreatitis, now with ongoing bleeding from prior drain. Anemic. s/p Tx multiple units over several days 3. septic shock/sepsis, recurrent 09/24, source abdomen. , 4. Acute kidney injury-, Off HD--renal function decling. suspect JUANA on CKD due to hypotension , improved now 5. Acute gallstone pancreatitis. 6. Hypoalbuminemia. 7. Moderate persistent effusions, s/p left thora 08/29, reaccumulation of left effusion. O2 requirement not changed. 8. Fever- ,hypotension. suspect recurrent sepsis/ likely pancreatic source. Per ID, per surgery-- 9. Chronic anemia-- ongoing / s/p PRBC 10. Covid 19 testing negative 11. Moderate to large ascites-S/P paracentisis 12.S/P paracentisis with 4 liters removed on 08/03/19 13. S/P IR drain placement on 08/26/2019, removal, re inserted 09/24 14. Depression/Anxiety 15. Increase effusion, ? loculated/ s/p chest tube.. drainage slowing down. 10/17 S/P Exploratory laparotomy, lysis of adhesions, subtotal cholecystectomy with cholangiogram, gastrojejunostomy tube placement, pancreatic necrosectomy leukocytosis- improving Plan . cont trach, 02 titration Up to chair PT OT Follow surgery input DVT GI prophylaxis ABX per ID Continue TF and TPN for nutrition support DVT/GI PPX D/W RN and RT, pts daughter TEN WHITFIELD MD Oct 29, 2019 11:53
[2019-10-29] MEDS: TPN PER PHARMACY MC PRN (13:21)
--- NOTE | 2019-10-29 13:25 | NUR ---
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, 8 inches Weight: 100.0 kg Current diet: NPO LABS: Sodium: 142 Potassium: 4.7 Chloride: 107 Calcium: 9.4 Corrected Calcium: 11.72 Magnesium: 2 CO2: 31 SCr: 0.5 Glucose: 109 Albumin: 1.1 AST: 25 ALT: 37 TPN FORMULA: TPN TYPE: Central Continuous AMINO ACIDS: 40 gm DEXTROSE: 225 gm LIPIDS: 20 gm SODIUM CHLORIDE: 90 mEq SODIUM ACETATE: - mEq SODIUM PHOSPHATE: - mmol POTASSIUM CHLORIDE: 30 mEq POTASSIUM ACETATE: 30 mEq POTASSIUM PHOSPHATE: - mmol MAGNESIUM: 15 mEq CALCIUM: - mEq INSULIN: 15 units MULTIPLE VITAMIN: 10 ml TRACE ELEMENTS: 1 ml ml(s) TPN PLAN: continue tpn tonight. R: Continue TPN AT SAME RATE. Will monitor electrolytes, glucose, and tolerance to TPN. KRISTIAN APODACA [facility], 10/29/19 [id number]
--- NOTE | 2019-10-29 13:52 | PDOC ---
SURGICAL PROGRESS NOTE Subjective Pt awake alert on trach shield Vital Signs Vital Signs Date Time Temp Pulse Resp B/P (MAP) Pulse Ox O2 Delivery O2 Flow Rate FiO2 10/29/19 13:00 126 40 147/81 (103) 98 Trach shield 10/29/19 12:51 6.0 10/29/19 12:00 99.6 99.6 I&O Intake and Output 10/29/19 07:00 Intake Total 2709 ml Output Total 3210 ml Balance -501 ml IV Total 1649 ml Tube Feeding 960 ml Other 100 ml Output Urine Total 1330 ml Chest Tube Drainage Total 80 ml Drainage Total 1800 ml General: Alert, No acute distress, Other (mildly diaphortic) Abdomen: Soft, No tenderness, Other Labs Laboratory Tests Test 10/27/19 23:04 10/28/19 05:30 10/28/19 05:50 10/28/19 06:07 Glucose (Fingerstick) 138 mg/dL (70-99) 103 mg/dL (70-99) Clostridium difficile Toxin (PCR) Negative (NEGATIVE) White Blood Count 15.4 x10^3/uL (4.0-11.0) Red Blood Count 2.86 x10^6/uL (3.50-5.40) Hemoglobin 8.4 g/dL (12.0-15.5) Hematocrit 25.4 % (36.0-47.0) Mean Corpuscular Volume 89 fL (79-100) Mean Corpuscular Hemoglobin 29 pg (25-35) Mean Corpuscular Hemoglobin Concent 33 g/dL (31-37) Red Cell Distribution Width 15.0 % (11.5-14.5) Platelet Count 681 x10^3/uL (140-400) Neutrophils (%) (Auto) 84 % (31-73) Lymphocytes (%) (Auto) 8 % (24-48) Monocytes (%) (Auto) 7 % (0-9) Eosinophils (%) (Auto) 1 % (0-3) Basophils (%) (Auto) 0 % (0-3) Neutrophils # (Auto) 12.9 x10^3/uL (1.8-7.7) Lymphocytes # (Auto) 1.2 x10^3/uL (1.0-4.8) Monocytes # (Auto) 1.0 x10^3/uL (0.0-1.1) Eosinophils # (Auto) 0.2 x10^3/uL (0.0-0.7) Basophils # (Auto) 0.1 x10^3/uL (0.0-0.2) Sodium Level 143 mmol/L (136-145) Potassium Level 4.1 mmol/L (3.5-5.1) Chloride Level 107 mmol/L (98-107) Carbon Dioxide Level 32 mmol/L (21-32) Anion Gap 4 (6-14) Blood Urea Nitrogen 15 mg/dL (7-20) Creatinine 0.5 mg/dL (0.6-1.0) Estimated GFR (Cockcroft-Gault) 131.1 Glucose Level 151 mg/dL (70-99) Calcium Level 9.9 mg/dL (8.5-10.1) Test 10/28/19 18:00 10/29/19 00:38 10/29/19 06:10 10/29/19 06:14 Glucose (Fingerstick) 138 mg/dL (70-99) 147 mg/dL (70-99) 159 mg/dL (70-99) White Blood Count 16.0 x10^3/uL (4.0-11.0) Red Blood Count 2.99 x10^6/uL (3.50-5.40) Hemoglobin 8.8 g/dL (12.0-15.5) Hematocrit 26.6 % (36.0-47.0) Mean Corpuscular Volume 89 fL (79-100) Mean Corpuscular Hemoglobin 29 pg (25-35) Mean Corpuscular Hemoglobin Concent 33 g/dL (31-37) Red Cell Distribution Width 14.8 % (11.5-14.5) Platelet Count 728 x10^3/uL (140-400) Neutrophils (%) (Auto) 87 % (31-73) Lymphocytes (%) (Auto) 6 % (24-48) Monocytes (%) (Auto) 7 % (0-9) Eosinophils (%) (Auto) 1 % (0-3) Basophils (%) (Auto) 0 % (0-3) Neutrophils # (Auto) 13.9 x10^3/uL (1.8-7.7) Lymphocytes # (Auto) 0.9 x10^3/uL (1.0-4.8) Monocytes # (Auto) 1.0 x10^3/uL (0.0-1.1) Eosinophils # (Auto) 0.1 x10^3/uL (0.0-0.7) Basophils # (Auto) 0.0 x10^3/uL (0.0-0.2) Sodium Level 142 mmol/L (136-145) Potassium Level 4.7 mmol/L (3.5-5.1) Chloride Level 107 mmol/L (98-107) Carbon Dioxide Level 31 mmol/L (21-32) Anion Gap 4 (6-14) Blood Urea Nitrogen 13 mg/dL (7-20) Creatinine 0.5 mg/dL (0.6-1.0) Estimated GFR (Cockcroft-Gault) 131.1 Glucose Level 169 mg/dL (70-99) Calcium Level 9.4 mg/dL (8.5-10.1) Test 10/29/19 11:17 Glucose (Fingerstick) 144 mg/dL (70-99) Laboratory Tests Test 10/28/19 18:00 10/29/19 00:38 10/29/19 06:10 10/29/19 06:14 Glucose (Fingerstick) 138 mg/dL (70-99) 147 mg/dL (70-99) 159 mg/dL (70-99) White Blood Count 16.0 x10^3/uL (4.0-11.0) Red Blood Count 2.99 x10^6/uL (3.50-5.40) Hemoglobin 8.8 g/dL (12.0-15.5) Hematocrit 26.6 % (36.0-47.0) Mean Corpuscular Volume 89 fL (79-100) Mean Corpuscular Hemoglobin 29 pg (25-35) Mean Corpuscular Hemoglobin Concent 33 g/dL (31-37) Red Cell Distribution Width 14.8 % (11.5-14.5) Platelet Count 728 x10^3/uL (140-400) Neutrophils (%) (Auto) 87 % (31-73) Lymphocytes (%) (Auto) 6 % (24-48) Monocytes (%) (Auto) 7 % (0-9) Eosinophils (%) (Auto) 1 % (0-3) Basophils (%) (Auto) 0 % (0-3) Neutrophils # (Auto) 13.9 x10^3/uL (1.8-7.7) Lymphocytes # (Auto) 0.9 x10^3/uL (1.0-4.8) Monocytes # (Auto) 1.0 x10^3/uL (0.0-1.1) Eosinophils # (Auto) 0.1 x10^3/uL (0.0-0.7) Basophils # (Auto) 0.0 x10^3/uL (0.0-0.2) Sodium Level 142 mmol/L (136-145) Potassium Level 4.7 mmol/L (3.5-5.1) Chloride Level 107 mmol/L (98-107) Carbon Dioxide Level 31 mmol/L (21-32) Anion Gap 4 (6-14) Blood Urea Nitrogen 13 mg/dL (7-20) Creatinine 0.5 mg/dL (0.6-1.0) Estimated GFR (Cockcroft-Gault) 131.1 Glucose Level 169 mg/dL (70-99) Calcium Level 9.4 mg/dL (8.5-10.1) Test 10/29/19 11:17 Glucose (Fingerstick) 144 mg/dL (70-99) Problem List Problems Medical Problems: (1) Acute pancreatitis Status: Acute (2) Cholelithiasis Status: Acute Assessment/Plan s/p necrosectomy cont drains and supportive care maintain slow tube feeds and G-tube to dependent drainage. Justicifation of Admission Dx: Justifications for Admission: Justification of Admission Dx: Yes DAVON SIMMS MD Oct 29, 2019 13:52
--- NOTE | 2019-10-29 14:15 | NUR ---
Patient coughing up what appeared to gastric content through her trach. It was yellow in color/same color that is in her G tube bag. G tube put out 450ml at this time from the start of shift. TF turned down to 10ml/hr. Dr Servin aware and ok with TF at 10ml/hr.
[2019-10-29] MEDS: IV NORMAL SALINE 1000ML BAG 1,000 ML IV SCH (14:33)
[2019-10-29] MEDS ORDERED: TOTAL PARENTERAL NUTRITION IV SCH ×10 (22:00)
[2019-10-29] MEDS ORDERED: AMINO ACID IV SCH ×10 (22:00)
[2019-10-29] MEDS ORDERED: DEXTROSE 70% IV SCH ×10 (22:00)
[2019-10-29] MEDS ORDERED: [UNRECOGNIZED DRUG - OTHER] IV SCH ×10 (22:00)
[2019-10-30] VITALS (24 sets, daily range): BP systolic 113–167; BP diastolic 66–93
[2019-10-30] MEDS: IPRATRPIUM/ALBUTEROL 0.5/2.5MG 3 ML NEBU. NEB SCH ×7 (00:11→23:14)
[2019-10-30] MEDS: MEROPENEM 500 MG in IV NORMAL SALINE 50ML 50 ML IV SCH ×4 (00:27→17:59)
[2019-10-30] MEDS: fentaNYL PF VIAL 100 MCG/2 ML VIAL IV PRN ×5 (02:46→18:02)
[2019-10-30] MEDS: ACETAMINOPHEN 650 MG SUPP.RECT. PR PRN ×2 (04:42→17:59)
[2019-10-30 05:44] LABS: BASO % 0 % (0-3); EOS # 0.1 x10^3/uL (0.0-0.7); EOS % 1 % (0-3); HEMATOCRIT 26.3 % (36.0-47.0); HEMOGLOBIN 8.8 g/dL (12.0-15.5); LYMPH # 1.9 x10^3/uL (1.0-4.8); LYMPH % 10 % (24-48); MEAN CORPUSCULAR HEMOGLOBIN 29 pg (25-35); MEAN CORPUSCULAR HGB CONC 33 g/dL (31-37); MEAN CORPUSCULAR VOLUME 88 fL (79-100); MONO # 1.3 x10^3/uL (0.0-1.1); MONO % 7 % (0-9); NEUT # 15.1 x10^3/uL (1.8-7.7); NEUT % 82 % (31-73); PLATELET COUNT 693 x10^3/uL (140-400); RED BLOOD COUNT 2.99 x10^6/uL (3.50-5.40); WHITE BLOOD COUNT 18.5 x10^3/uL (4.0-11.0)
[2019-10-30 05:59] LABS: ALBUMIN 1.5 g/dL (3.4-5.0); ALBUMIN/GLOBULIN RATIO 0.5 (1.0-1.7); CALCIUM 9.3 mg/dL (8.5-10.1); CREATININE 0.5 mg/dL (0.6-1.0); GFR 131.1; POTASSIUM 4.6 mmol/L (3.5-5.1); TOTAL BILIRUBIN 0.5 mg/dL (0.2-1.0); TOTAL PROTEIN 4.8 g/dL (6.4-8.2)
[2019-10-30] MEDS: INSULIN LISPRO 300 UNITS/3 ML VIAL. SQ SCH ×4 (06:00→18:00)
--- NOTE | 2019-10-30 07:17 | RAD ---
The abdomen and pelvis without contrast 10/30/2019. Reason for exam: Symptoms of infection. History of pancreatitis. CT images were made through the chest abdomen and pelvis without oral or IV contrast. Exposure: One or more of the following individualized dose reduction techniques were utilized for this examination: 1. Automated exposure control 2. Adjustment of the mA and/or kV according to patient size 3. Use of iterative reconstruction technique. Comparison is made with a study of 10/03/2019. CT chest findings: Bilateral pleural effusions persist along with adjacent atelectasis. There is now a pigtail drainage catheter on the left posteriorly, and the amount of fluid is significantly reduced here. The right-sided effusion has increased some as has the adjacent atelectasis. The aerated portions of the lungs are relatively clear. A tracheostomy tube remains in place. No new enlarged lymph nodes are seen. IMPRESSION: Decreased left-sided effusion after catheter placement. The right-sided effusion has increased as has atelectasis. CT abdomen and pelvis: The liver and spleen are homogeneous in density. Evaluation of the solid organs is limited without IV contrast. There is now a drainage tube along the undersurface of the liver extending to the area of the gallbladder fossa. An NG tube present on the prior study has been removed. A pigtail drain that was present within a collection anterior to the pancreas also has been removed. There is now a larger bore drainage tube entering the right abdomen and extending into the pancreatic bed. A gastrostomy tube enters the left abdomen and lies in the stomach with an apparent jejunostomy tube looped in the distal duodenum and proximal jejunum. There are additional drains bilaterally in the abdominal flanks. A pigtail catheter present previously on the left in this region has been removed. There is still a pigtail drain within the right iliac fossa. The collection in the region of the pancreatic bed has decreased in size. AP thickness is about 2.8 cm compared with 5.3 cm previously. The collection in the left abdominal flank has decreased as well. Mediolateral thickness is about 4.5 cm compared with about 6.5 cm previously. Right flank collection also appears smaller, particularly in its anterior aspect near the kidney and proximal duodenum. Evaluation for smaller fluid collections is somewhat limited by lack of oral contrast. There is suggestion of a loculated collection in the upper anterior pelvis that is grossly similar to the prior exam. It shows a small amount of internal air, presumably from aspiration or presence of drainage tube. This likely communicates with the left flank collection. Images through the pelvis also show some fluid in the cul-de-sac that has similar volume. There is no evidence of bowel obstruction. IMPRESSION: There has been exchange or placement of multiple drainage tubes and a gastrojejunostomy tube. Both collections are smaller. No significant new abdominal fluid collection is seen. The jejunal component of the gastrojejunostomy tube appears to be looped in the proximal small bowel. Electronically signed by: Charlie Bowles Jr., MD (10/30/2019 7:14 AM) [id number]
--- NOTE | 2019-10-30 07:34 | NUR ---
Pt. progressively more tachycardic and tachypneic throughout the shift. ~ Decided to place pt. on vent to rest for the remainder of the shift, upon connecting to vent pt. began retching continuously, mouthing to "take it off" disconnected from vent and returned to trach shield at previous settings. At 0400 assessment pt. flushed and diaphoretic, temp 101.9, tachycardic in the 140s with RR in the mid 40s, [place] acetaminophen administered, paged Dr. Villanueva who returned call, updated on the events of the shift and current assessment, orders received. Phoned Jamaal (boyfriend) and updated on current pt. condition. Immediately prior to CT pt coughing large amount of dark green liquid from trach, tracheal suctioning performed and CT completed.
--- NOTE | 2019-10-30 07:55 | PDOC ---
Infectious Disease Note Subjective Subjective She is requesting a pillow + tracheal secretions-bile color FiO2 33% satting 94% Few BM yesterday per nursing Fever 101.9 - CT C/A/P done. cultures ordered ROS ROS as mentioned above Vital Sign Vital Signs Vital Signs Date Time Temp Pulse Resp B/P (MAP) Pulse Ox O2 Delivery O2 Flow Rate FiO2 10/30/19 06:00 146 45 162/90 (114) 93 Trach shield 10/30/19 05:11 6.0 10/30/19 05:00 101.9 101.9 Physical Exam PHYSICAL EXAM GENERAL: Propped up in bed, awake, weak appearing HEENT: Pupils equal, oral cavity dry. NGT out NECK: Tracheostomy LUNGS: Diminished aeration bases, CT on left HEART: S1, S2, regular, tachy ABDOMEN: Sightly less distended, bowel sounds hypoactive, soft, goyal x 2, 3 KAYLIN drains, G-J tube and + wound vac : Lind in place EXTREMITIES: Generalized edema, no cyanosis. SCDs & Podus boots bilaterally, SKIN: warm touch. No signs of rash. NEURO: awake, mouthing some words, tracking LUE-PICC without signs of complications LUE art-line out, mottling about old art-line site is improving. RP palpable, cap refill brisk. Labs Lab Laboratory Tests Test 10/29/19 11:17 10/29/19 17:27 10/30/19 00:26 10/30/19 05:15 Glucose (Fingerstick) 144 mg/dL (70-99) 116 mg/dL (70-99) 120 mg/dL (70-99) White Blood Count 18.5 x10^3/uL (4.0-11.0) Red Blood Count 2.99 x10^6/uL (3.50-5.40) Hemoglobin 8.8 g/dL (12.0-15.5) Hematocrit 26.3 % (36.0-47.0) Mean Corpuscular Volume 88 fL (79-100) Mean Corpuscular Hemoglobin 29 pg (25-35) Mean Corpuscular Hemoglobin Concent 33 g/dL (31-37) Red Cell Distribution Width 15.0 % (11.5-14.5) Platelet Count 693 x10^3/uL (140-400) Neutrophils (%) (Auto) 82 % (31-73) Lymphocytes (%) (Auto) 10 % (24-48) Monocytes (%) (Auto) 7 % (0-9) Eosinophils (%) (Auto) 1 % (0-3) Basophils (%) (Auto) 0 % (0-3) Neutrophils # (Auto) 15.1 x10^3/uL (1.8-7.7) Lymphocytes # (Auto) 1.9 x10^3/uL (1.0-4.8) Monocytes # (Auto) 1.3 x10^3/uL (0.0-1.1) Eosinophils # (Auto) 0.1 x10^3/uL (0.0-0.7) Basophils # (Auto) 0.0 x10^3/uL (0.0-0.2) Sodium Level 139 mmol/L (136-145) Potassium Level 4.6 mmol/L (3.5-5.1) Chloride Level 103 mmol/L (98-107) Carbon Dioxide Level 30 mmol/L (21-32) Anion Gap 6 (6-14) Blood Urea Nitrogen 11 mg/dL (7-20) Creatinine 0.5 mg/dL (0.6-1.0) Estimated GFR (Cockcroft-Gault) 131.1 BUN/Creatinine Ratio 22 (6-20) Glucose Level 122 mg/dL (70-99) Calcium Level 9.3 mg/dL (8.5-10.1) Total Bilirubin 0.5 mg/dL (0.2-1.0) Aspartate Amino Transf (AST/SGOT) 23 U/L (15-37) Alanine Aminotransferase (ALT/SGPT) 35 U/L (14-59) Alkaline Phosphatase 156 U/L (46-116) Total Protein 4.8 g/dL (6.4-8.2) Albumin 1.5 g/dL (3.4-5.0) Albumin/Globulin Ratio 0.5 (1.0-1.7) CT A/P, 10/29 CT chest findings: Bilateral pleural effusions persist along with adjacent atelectasis. There is now a pigtail drainage catheter on the left posteriorly, and the amount of fluid is significantly reduced here. The right-sided effusion has increased some as has the adjacent atelectasis. The aerated portions of the lungs are relatively clear. A tracheostomy tube remains in place. No new enlarged lymph nodes are seen. IMPRESSION: There has been exchange or placement of multiple drainage tubes and a gastrojejunostomy tube. Both collections are smaller. No significant new abdominal fluid collection is seen. The jejunal component of the gastrojejunostomy tube appears to be looped in the proximal small bowel. Micro 10/15. BLOOD CULTURE Preliminary NO GROWTH AFTER 5 DAYS 10/17. GRAM STAIN Final Final SQUAMOUS EPI CELL:RARE PMN (WBCs):FEW YEAST:FEW ANAEROBIC-AEROBIC CULTURE Preliminary Preliminary ANAEROBIC-AEROBIC CULTURE Preliminary Preliminary MANY YEAST on 10/21/19 at 1354 FINAL ID= [DEVYN PARAPSILOSIS] FEW FINAL ID= [PSEUDOMONAS AERUGINOSA] DEVYN PARAPSILOSIS PSEUDOMONAS AERUGINOSA Objective Assessment Patient with prolonged hospitalization more than 3 months Multiple medical problems Multiple surgical procedures S/P Exp. 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 parapsilosis & PSAE (I-merrem/ceftazidime/AZT/cefepime)) Leucocytosis -trending upward Fever Acute gallstone pancreatitis with persistent necrosis - 07/27. CT A/P Increased ascites. 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 status post KAYLIN drain placement; C. parapsilosis. s/p drain 08/23 + yeast & high amylase; s/p additional drain on 08/25. Drains removed. -08/23. fluid devyn parapsilosis fluid, amylase high - 09/23 showed multiple pseudocysts, slight larger on the right. s/p drains x 3, 09/24. + PSAE (MDRO-R Cefepime, Zosyn ALEXANDRA < 64) and yeast, -09/24 s/p drain replacement x 3; fluid cult PSAE (MDRO), yeast; treated -10/29 CT A/P shows smaller fluid collections. Ascites s/p paracentesis 08/02 & 08/23. C. parapsilosis Cholelithiasis with thickening of the gallbladder wall. JUANA, Hyperkalemia, Metabolic acidosis off dialysis Acute hypoxic resp failure. trach/vent. sputum 09/30 + PSAE (I merrem) Pleural effusions s/p left thoracentesis, 08/29. no culture. s/p left chest tube, 10/02 no growth Hypocalcemia Prediabetes HTN Anemia s/p PRBCs Plan Plan of Care merrem and micafungin Add vanc per pharmacy protocal and cipro per Dr. Barakat f/u BC /resp cultures Labs in am wound care /drain management as directed Contact isolation for CRE/MDRO D/w nursing Critically ill Mild Icreased Resp rate - d/w RN f/u cults Attending Co-Sign Attending Co-Sign The patient was seen and interviewed as well as examined at the bedside. The chart was reviewed. The case was discussed. Agree with the plan of care. FRANCA HOBSON APRN Oct 30, 2019 07:55 WILLY BARAKAT MD Oct 30, 2019 15:24
[2019-10-30] MEDS: ACETYLCYSTEINE 20% for RESP TX 600 MG/3 ML. NEB SCH ×2 (08:00→20:18)
[2019-10-30] MEDS: PANTOPRAZOLE IV PUSH 40 MG VIAL. IVP SCH (08:18)
[2019-10-30] MEDS: MICAFUNGIN 100 MG in IV DEXTROSE 5% 100ML 100 ML IV SCH (08:19)
[2019-10-30] MEDS: ENOXAPARIN 40 MG/0.4 ML SYRINGE. SQ SCH (08:20)
[2019-10-30] MEDS: METOPROLOL TARTRATE 5 MG/5 ML VIAL. IVP PRN ×2 (08:21→18:01)
[2019-10-30] MEDS: ONDANSETRON PF 4 MG/2 ML VIAL. IV PRN ×3 (08:22→19:55)
[2019-10-30] MEDS: VANCOMYCIN PER PHARMACY MC PRN ×2 (09:34→16:07)
[2019-10-30] MEDS: TPN PER PHARMACY MC PRN (09:52)
[2019-10-30] MEDS ORDERED: VANCOMYCIN 2 GM in IV NORMAL SALINE 500ML BAG 500 ML IV ONE (10:00)
--- NOTE | 2019-10-30 10:03 | NUR ---
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, 8 inches Weight: 97.5 kg Current diet: NPO LABS: Sodium: 139 Potassium: 4.6 Chloride: 103 Calcium: 9.3 Corrected Calcium: 11.62 Magnesium: 2 CO2: 31 SCr: 0.5 Glucose: 122 Albumin: 1.1 AST: 25 ALT: 37 TPN FORMULA: TPN TYPE: Central Continuous AMINO ACIDS: 40 gm DEXTROSE: 225 gm LIPIDS: 20 gm SODIUM CHLORIDE: 90 mEq SODIUM ACETATE: - mEq SODIUM PHOSPHATE: - mmol POTASSIUM CHLORIDE: 30 mEq POTASSIUM ACETATE: 30 mEq POTASSIUM PHOSPHATE: - mmol MAGNESIUM: 15 mEq CALCIUM: - mEq INSULIN: 15 units MULTIPLE VITAMIN: 10 ml TRACE ELEMENTS: 1 ml ml(s) TPN PLAN: LAB STABLE, CONT SAME TPN. R: Continue TPN AT 70 ML/HR Will monitor electrolytes, glucose, and tolerance to TPN. KRISTIAN APODACA [facility] [place], 10/30/19 [id number]
[2019-10-30] MEDS: CIPROFLOXACIN 400MG PREMIX 200 ML IV SCH ×2 (10:34→21:23)
--- NOTE | 2019-10-30 10:42 | PDOC ---
PULMONARY PROGRESS NOTES Subjective trach, on tm, no sob is weak, fever 101.9, ? aspirated Vitals Vital Signs Date Time Temp Pulse Resp B/P (MAP) Pulse Ox O2 Delivery O2 Flow Rate FiO2 10/30/19 09:00 36 Tracheal Collar 6.0 10/30/19 08:52 96 10/30/19 08:21 141 151/82 10/30/19 05:00 101.9 101.9 General: Alert HEENT: Other (trach site ok) Lungs: Crackles Cardiovascular: S1, S2 Abdomen: Soft, Non-tender, Other (multiple KAYLIN drains ) Neuro Exam: Alert Extremities: Other (+1 BLE edema) Skin: Warm Labs Laboratory Tests Test 10/28/19 18:00 10/29/19 00:38 10/29/19 06:10 10/29/19 06:14 Glucose (Fingerstick) 138 mg/dL (70-99) 147 mg/dL (70-99) 159 mg/dL (70-99) White Blood Count 16.0 x10^3/uL (4.0-11.0) Red Blood Count 2.99 x10^6/uL (3.50-5.40) Hemoglobin 8.8 g/dL (12.0-15.5) Hematocrit 26.6 % (36.0-47.0) Mean Corpuscular Volume 89 fL (79-100) Mean Corpuscular Hemoglobin 29 pg (25-35) Mean Corpuscular Hemoglobin Concent 33 g/dL (31-37) Red Cell Distribution Width 14.8 % (11.5-14.5) Platelet Count 728 x10^3/uL (140-400) Neutrophils (%) (Auto) 87 % (31-73) Lymphocytes (%) (Auto) 6 % (24-48) Monocytes (%) (Auto) 7 % (0-9) Eosinophils (%) (Auto) 1 % (0-3) Basophils (%) (Auto) 0 % (0-3) Neutrophils # (Auto) 13.9 x10^3/uL (1.8-7.7) Lymphocytes # (Auto) 0.9 x10^3/uL (1.0-4.8) Monocytes # (Auto) 1.0 x10^3/uL (0.0-1.1) Eosinophils # (Auto) 0.1 x10^3/uL (0.0-0.7) Basophils # (Auto) 0.0 x10^3/uL (0.0-0.2) Sodium Level 142 mmol/L (136-145) Potassium Level 4.7 mmol/L (3.5-5.1) Chloride Level 107 mmol/L (98-107) Carbon Dioxide Level 31 mmol/L (21-32) Anion Gap 4 (6-14) Blood Urea Nitrogen 13 mg/dL (7-20) Creatinine 0.5 mg/dL (0.6-1.0) Estimated GFR (Cockcroft-Gault) 131.1 Glucose Level 169 mg/dL (70-99) Calcium Level 9.4 mg/dL (8.5-10.1) Test 10/29/19 11:17 10/29/19 17:27 10/30/19 00:26 10/30/19 05:15 Glucose (Fingerstick) 144 mg/dL (70-99) 116 mg/dL (70-99) 120 mg/dL (70-99) White Blood Count 18.5 x10^3/uL (4.0-11.0) Red Blood Count 2.99 x10^6/uL (3.50-5.40) Hemoglobin 8.8 g/dL (12.0-15.5) Hematocrit 26.3 % (36.0-47.0) Mean Corpuscular Volume 88 fL (79-100) Mean Corpuscular Hemoglobin 29 pg (25-35) Mean Corpuscular Hemoglobin Concent 33 g/dL (31-37) Red Cell Distribution Width 15.0 % (11.5-14.5) Platelet Count 693 x10^3/uL (140-400) Neutrophils (%) (Auto) 82 % (31-73) Lymphocytes (%) (Auto) 10 % (24-48) Monocytes (%) (Auto) 7 % (0-9) Eosinophils (%) (Auto) 1 % (0-3) Basophils (%) (Auto) 0 % (0-3) Neutrophils # (Auto) 15.1 x10^3/uL (1.8-7.7) Lymphocytes # (Auto) 1.9 x10^3/uL (1.0-4.8) Monocytes # (Auto) 1.3 x10^3/uL (0.0-1.1) Eosinophils # (Auto) 0.1 x10^3/uL (0.0-0.7) Basophils # (Auto) 0.0 x10^3/uL (0.0-0.2) Sodium Level 139 mmol/L (136-145) Potassium Level 4.6 mmol/L (3.5-5.1) Chloride Level 103 mmol/L (98-107) Carbon Dioxide Level 30 mmol/L (21-32) Anion Gap 6 (6-14) Blood Urea Nitrogen 11 mg/dL (7-20) Creatinine 0.5 mg/dL (0.6-1.0) Estimated GFR (Cockcroft-Gault) 131.1 BUN/Creatinine Ratio 22 (6-20) Glucose Level 122 mg/dL (70-99) Calcium Level 9.3 mg/dL (8.5-10.1) Total Bilirubin 0.5 mg/dL (0.2-1.0) Aspartate Amino Transf (AST/SGOT) 23 U/L (15-37) Alanine Aminotransferase (ALT/SGPT) 35 U/L (14-59) Alkaline Phosphatase 156 U/L (46-116) Total Protein 4.8 g/dL (6.4-8.2) Albumin 1.5 g/dL (3.4-5.0) Albumin/Globulin Ratio 0.5 (1.0-1.7) Laboratory Tests Test 10/29/19 11:17 10/29/19 17:27 10/30/19 00:26 10/30/19 05:15 Glucose (Fingerstick) 144 mg/dL (70-99) 116 mg/dL (70-99) 120 mg/dL (70-99) White Blood Count 18.5 x10^3/uL (4.0-11.0) Red Blood Count 2.99 x10^6/uL (3.50-5.40) Hemoglobin 8.8 g/dL (12.0-15.5) Hematocrit 26.3 % (36.0-47.0) Mean Corpuscular Volume 88 fL (79-100) Mean Corpuscular Hemoglobin 29 pg (25-35) Mean Corpuscular Hemoglobin Concent 33 g/dL (31-37) Red Cell Distribution Width 15.0 % (11.5-14.5) Platelet Count 693 x10^3/uL (140-400) Neutrophils (%) (Auto) 82 % (31-73) Lymphocytes (%) (Auto) 10 % (24-48) Monocytes (%) (Auto) 7 % (0-9) Eosinophils (%) (Auto) 1 % (0-3) Basophils (%) (Auto) 0 % (0-3) Neutrophils # (Auto) 15.1 x10^3/uL (1.8-7.7) Lymphocytes # (Auto) 1.9 x10^3/uL (1.0-4.8) Monocytes # (Auto) 1.3 x10^3/uL (0.0-1.1) Eosinophils # (Auto) 0.1 x10^3/uL (0.0-0.7) Basophils # (Auto) 0.0 x10^3/uL (0.0-0.2) Sodium Level 139 mmol/L (136-145) Potassium Level 4.6 mmol/L (3.5-5.1) Chloride Level 103 mmol/L (98-107) Carbon Dioxide Level 30 mmol/L (21-32) Anion Gap 6 (6-14) Blood Urea Nitrogen 11 mg/dL (7-20) Creatinine 0.5 mg/dL (0.6-1.0) Estimated GFR (Cockcroft-Gault) 131.1 BUN/Creatinine Ratio 22 (6-20) Glucose Level 122 mg/dL (70-99) Calcium Level 9.3 mg/dL (8.5-10.1) Total Bilirubin 0.5 mg/dL (0.2-1.0) Aspartate Amino Transf (AST/SGOT) 23 U/L (15-37) Alanine Aminotransferase (ALT/SGPT) 35 U/L (14-59) Alkaline Phosphatase 156 U/L (46-116) Total Protein 4.8 g/dL (6.4-8.2) Albumin 1.5 g/dL (3.4-5.0) Albumin/Globulin Ratio 0.5 (1.0-1.7) Medications Active Scripts Medications Dose Route/Sig Max Daily Dose Days Date Category Bisoprolol Fumarate 5 Mg Tablet 10 Mg PO DAILY 07/04/[address] reviewed 10/30/19, Decreased left-sided effusion after catheter placement. The right-sided effusion has increased as has atelectasis. There has been exchange or placement of multiple drainage tubes and a gastrojejunostomy tube. Both collections are smaller. No significant new abdominal fluid collection is seen. The jejunal component of the gastrojejunostomy tube appears to be looped in the proximal small bowel. ct abdomen /pelvis 09/23 1. Removal of the percutaneous pigtail drainage catheters since the prior exam. Sequela of pancreatitis with extensive pseudocysts again demonstrated, the right-sided collections are slightly larger since the prior exam, the left-sided collections are stable. See above. 2. Moderate to large left pleural effusion with atelectasis and collapse of most of the left lower lobe, stable. Small right pleural effusion is stable. 3. Gallstone. ct chest 10/02 reviewed GRAM NEG COCCOBACILLI:MANY SQUAMOUS EPI CELL:RARE PMN (WBCs):FEW Unless otherwise specified, Testing Performed by: [address] [address] For Inquires, the Physician may contact the Microbiology department at [phone] RESPIRATORY CULTURE Final Final MANY GRAM NEGATIVE RODS on 10/03/19 at 1107 FINAL ID= [PSEUDOMONAS AERUGINOSA] MICRO CHARGES PSEUDOMONAS AERUGINOSA ANTIMICROBIAL SUSCEPTIBILITY Final Comment NEG ALEXANDRA 56 PSEUDOMONAS AERUGINOSA ANTIBIOTIC RESULT INTERPRETATION AMIKACIN <=16 S AZTREONAM <=4 S CEFTAZIDIME <=1 S CIPROFLOXACIN <=0.25 S CEFEPIME <=2 S CEFTAZIDIME/AVIBACTAM <=4 S GENTAMICIN <=2 S LEVOFLOXACIN <=0.5 S Impression . IMPRESSION: 1. Acute hypoxemic respiratory failure secondary to ARDS status post trach, developed anemia /, blood drainage from RLQ abdomen drain site, and surrounding firmness / developed septic shock 6/ from abdomen source, required levo 6/7 s/p 3 new drains /7 with brown color drainage, 2. Gallstone pancreatitis, now with ongoing bleeding from prior drain. Anemic. s/p Tx multiple units over several days 3. septic shock/sepsis, recurrent 09/24, source abdomen. new fever ? aspiration pneumonitis/pneumonia 4. Acute kidney injury-, Off HD--renal function decling. suspect JUANA on CKD due to hypotension , improved now 5. Acute gallstone pancreatitis. 6. Hypoalbuminemia. 7. Moderate persistent effusions, s/p left thora 08/29, reaccumulation of left effusion. O2 requirement not changed. 8. Fever- ,hypotension. suspect recurrent sepsis/ likely pancreatic source. Per ID, per surgery-- 9. Chronic anemia-- ongoing / s/p PRBC 10. Covid 19 testing negative 11. Moderate to large ascites-S/P paracentisis 12.S/P paracentisis with 4 liters removed on 08/03/19 13. S/P IR drain placement on 08/26/2019, removal, re inserted 09/24 14. Depression/Anxiety 15. Increase effusion, ? loculated/ s/p chest tube.. drainage slowing down. 10/17 S/P Exploratory laparotomy, lysis of adhesions, subtotal cholecystectomy with cholangiogram, gastrojejunostomy tube placement, pancreatic necrosectomy leukocytosis- improving Plan . cont trach, 02 titration tf on hold per surgery,? aspiration has new fever PT OT Follow surgery input DVT GI prophylaxis ABX per ID merrem and micafungin Added vanc and cipro per id f/u BC /resp cultures Continue TPN for nutrition support DVT/GI PPX D/W RN and RT, TEN WHITFIELD MD Oct 30, 2019 10:42
--- NOTE | 2019-10-30 11:25 | PDOC ---
SURGICAL PROGRESS NOTE Subjective Pt awake on vent, trying to communicate, fevers last night, concern for aspiration, tube feeds stopped Vital Signs Vital Signs Date Time Temp Pulse Resp B/P (MAP) Pulse Ox O2 Delivery O2 Flow Rate FiO2 10/30/19 09:00 36 Tracheal Collar 6.0 10/30/19 08:52 96 10/30/19 08:21 141 151/82 10/30/19 05:00 101.9 101.9 I&O Intake and Output 10/30/19 07:00 Intake Total 1480 ml Output Total 2995 ml Balance -1515 ml IV Total 1180 ml Tube Feeding 300 ml Output Urine Total 1700 ml Gastric Drainage Total 900 ml Chest Tube Drainage Total 0 ml Drainage Total 395 ml General: Alert, Cooperative, mild distress Abdomen: Soft, No tenderness, Other (drains in place with pancreatic necrosis) Labs Laboratory Tests Test 10/28/19 18:00 10/29/19 00:38 10/29/19 06:10 10/29/19 06:14 Glucose (Fingerstick) 138 mg/dL (70-99) 147 mg/dL (70-99) 159 mg/dL (70-99) White Blood Count 16.0 x10^3/uL (4.0-11.0) Red Blood Count 2.99 x10^6/uL (3.50-5.40) Hemoglobin 8.8 g/dL (12.0-15.5) Hematocrit 26.6 % (36.0-47.0) Mean Corpuscular Volume 89 fL (79-100) Mean Corpuscular Hemoglobin 29 pg (25-35) Mean Corpuscular Hemoglobin Concent 33 g/dL (31-37) Red Cell Distribution Width 14.8 % (11.5-14.5) Platelet Count 728 x10^3/uL (140-400) Neutrophils (%) (Auto) 87 % (31-73) Lymphocytes (%) (Auto) 6 % (24-48) Monocytes (%) (Auto) 7 % (0-9) Eosinophils (%) (Auto) 1 % (0-3) Basophils (%) (Auto) 0 % (0-3) Neutrophils # (Auto) 13.9 x10^3/uL (1.8-7.7) Lymphocytes # (Auto) 0.9 x10^3/uL (1.0-4.8) Monocytes # (Auto) 1.0 x10^3/uL (0.0-1.1) Eosinophils # (Auto) 0.1 x10^3/uL (0.0-0.7) Basophils # (Auto) 0.0 x10^3/uL (0.0-0.2) Sodium Level 142 mmol/L (136-145) Potassium Level 4.7 mmol/L (3.5-5.1) Chloride Level 107 mmol/L (98-107) Carbon Dioxide Level 31 mmol/L (21-32) Anion Gap 4 (6-14) Blood Urea Nitrogen 13 mg/dL (7-20) Creatinine 0.5 mg/dL (0.6-1.0) Estimated GFR (Cockcroft-Gault) 131.1 Glucose Level 169 mg/dL (70-99) Calcium Level 9.4 mg/dL (8.5-10.1) Test 10/29/19 11:17 10/29/19 17:27 10/30/19 00:26 10/30/19 05:15 Glucose (Fingerstick) 144 mg/dL (70-99) 116 mg/dL (70-99) 120 mg/dL (70-99) White Blood Count 18.5 x10^3/uL (4.0-11.0) Red Blood Count 2.99 x10^6/uL (3.50-5.40) Hemoglobin 8.8 g/dL (12.0-15.5) Hematocrit 26.3 % (36.0-47.0) Mean Corpuscular Volume 88 fL (79-100) Mean Corpuscular Hemoglobin 29 pg (25-35) Mean Corpuscular Hemoglobin Concent 33 g/dL (31-37) Red Cell Distribution Width 15.0 % (11.5-14.5) Platelet Count 693 x10^3/uL (140-400) Neutrophils (%) (Auto) 82 % (31-73) Lymphocytes (%) (Auto) 10 % (24-48) Monocytes (%) (Auto) 7 % (0-9) Eosinophils (%) (Auto) 1 % (0-3) Basophils (%) (Auto) 0 % (0-3) Neutrophils # (Auto) 15.1 x10^3/uL (1.8-7.7) Lymphocytes # (Auto) 1.9 x10^3/uL (1.0-4.8) Monocytes # (Auto) 1.3 x10^3/uL (0.0-1.1) Eosinophils # (Auto) 0.1 x10^3/uL (0.0-0.7) Basophils # (Auto) 0.0 x10^3/uL (0.0-0.2) Sodium Level 139 mmol/L (136-145) Potassium Level 4.6 mmol/L (3.5-5.1) Chloride Level 103 mmol/L (98-107) Carbon Dioxide Level 30 mmol/L (21-32) Anion Gap 6 (6-14) Blood Urea Nitrogen 11 mg/dL (7-20) Creatinine 0.5 mg/dL (0.6-1.0) Estimated GFR (Cockcroft-Gault) 131.1 BUN/Creatinine Ratio 22 (6-20) Glucose Level 122 mg/dL (70-99) Calcium Level 9.3 mg/dL (8.5-10.1) Total Bilirubin 0.5 mg/dL (0.2-1.0) Aspartate Amino Transf (AST/SGOT) 23 U/L (15-37) Alanine Aminotransferase (ALT/SGPT) 35 U/L (14-59) Alkaline Phosphatase 156 U/L (46-116) Total Protein 4.8 g/dL (6.4-8.2) Albumin 1.5 g/dL (3.4-5.0) Albumin/Globulin Ratio 0.5 (1.0-1.7) Laboratory Tests Test 10/29/19 17:27 10/30/19 00:26 10/30/19 05:15 Glucose (Fingerstick) 116 mg/dL (70-99) 120 mg/dL (70-99) White Blood Count 18.5 x10^3/uL (4.0-11.0) Red Blood Count 2.99 x10^6/uL (3.50-5.40) Hemoglobin 8.8 g/dL (12.0-15.5) Hematocrit 26.3 % (36.0-47.0) Mean Corpuscular Volume 88 fL (79-100) Mean Corpuscular Hemoglobin 29 pg (25-35) Mean Corpuscular Hemoglobin Concent 33 g/dL (31-37) Red Cell Distribution Width 15.0 % (11.5-14.5) Platelet Count 693 x10^3/uL (140-400) Neutrophils (%) (Auto) 82 % (31-73) Lymphocytes (%) (Auto) 10 % (24-48) Monocytes (%) (Auto) 7 % (0-9) Eosinophils (%) (Auto) 1 % (0-3) Basophils (%) (Auto) 0 % (0-3) Neutrophils # (Auto) 15.1 x10^3/uL (1.8-7.7) Lymphocytes # (Auto) 1.9 x10^3/uL (1.0-4.8) Monocytes # (Auto) 1.3 x10^3/uL (0.0-1.1) Eosinophils # (Auto) 0.1 x10^3/uL (0.0-0.7) Basophils # (Auto) 0.0 x10^3/uL (0.0-0.2) Sodium Level 139 mmol/L (136-145) Potassium Level 4.6 mmol/L (3.5-5.1) Chloride Level 103 mmol/L (98-107) Carbon Dioxide Level 30 mmol/L (21-32) Anion Gap 6 (6-14) Blood Urea Nitrogen 11 mg/dL (7-20) Creatinine 0.5 mg/dL (0.6-1.0) Estimated GFR (Cockcroft-Gault) 131.1 BUN/Creatinine Ratio 22 (6-20) Glucose Level 122 mg/dL (70-99) Calcium Level 9.3 mg/dL (8.5-10.1) Total Bilirubin 0.5 mg/dL (0.2-1.0) Aspartate Amino Transf (AST/SGOT) 23 U/L (15-37) Alanine Aminotransferase (ALT/SGPT) 35 U/L (14-59) Alkaline Phosphatase 156 U/L (46-116) Total Protein 4.8 g/dL (6.4-8.2) Albumin 1.5 g/dL (3.4-5.0) Albumin/Globulin Ratio 0.5 (1.0-1.7) Problem List Problems Medical Problems: (1) Acute pancreatitis Status: Acute (2) Cholelithiasis Status: Acute Assessment/Plan CT with improved pancreatic fluid collections suspect component of aspiration and agree with holding tube feeds cont TPN will need to change/reposition G-J tube at some point, but relatively fresh cont abx and pulm support Justicifation of Admission Dx: Justifications for Admission: Justification of Admission Dx: Yes DAVON SIMMS MD Oct 30, 2019 11:24
--- NOTE | 2019-10-30 14:24 | PDOC ---
PROGRESS NOTES Chief Complaint Chief Complaint A/P Acute hypoxic Respiratory failure required mechanical ventilation Tracheostomy bilateral pleural effusions/pulm edema s/p Throacentesis on 10/03/2019 Severe Acute gallstone pancreatitis (not a surgical candidate at this time) with necrosis Acute kidney failure now requiring dialysis Gallstones (Calculus of gallbladder with acute cholecystitis without obstruction) HTN Intractable pain Intractable nausea Covid 19 negative. Acute on chronic anemia EEG: No seizure activityFever - better currently - intermittent could be from underlying pancreatitis blood cults 08/21 - neg so far ? Ileus with vomiting Abd distention - U/S and CT reviewed s/p 0.4 L of opaque, debris-containing ascites was removed 08/23 Acute pancreatitis with persistent necrosis Gallstone pancreatitis with necrosis. -CT A/P 09/23 showed multiple pseudocysts, slight larger on the right. s/p drains x 3, 09/24. + PSAE (MDRO-R Cefepime, Zosyn ALEXANDRA < 64) and yeast, -s/p drain 08/14. C. parapsilosis. s/p drain 08/23 + yeast & high amylase; s/p additional drain on 08/25. Drains removed. Ascites s/p paracentesis 08/02 & 08/23. C. parapsilosis JUANA. off HD. A large fluid collection in the pancreatic bed has slightly decreased in size, described below, the pancreas itself is difficult to visualize, which could be due to necrosis or obscuration of pancreatic parenchyma from the surrounding fluid collection.10/02 - 08/14 status post KAYLIN drain placement + C paropsilosis. s/p additional drains 08/25 Anemia - S/p PRBCs Cholelithiasis with thickening of the gallbladder wall. Leucocytosis improving JUANA, hyperkalemia, Metabolic acidosis off dialysis hypocalcemia Prediabetes HTN s/p trach ESRD on HD Hyperglycemia severe protein-caloric malnutrition Moderate to large left pleural effusion with atelectasis and collapse of most of the left lower lobe, stable Dispo - ICU, critically ill Poor prognosis History of Present Illness History of Present Illness 09/25: IR placed drain on 09/24. 4u PRBC after Hb drop. Hb 8.8 today. Off Levophed this morning. T-max 100.3. Much more lethargic today. CXR with left sided diffuse infiltrates. 6/9: Tachycardic overnight into the 140s. NGT clamped. On BIPAP currently. Drains with serosanguinous discharge. WBC 8, Tmax 99.6F. 09/27: Seen on trach shield in ICU. Hypertensive and tachycardic. Labs stable. blood stained drainage from drains. Afebrile. 09/28: Seen on trach shield in ICU. She is a bit confused, drowsy, but when sitting up is conversational and confusion somewhat clears. She is asking for more pain medication. Stable drains, still very tachy.Na 147 09/29: Patient vomited overnight. Aspirated. Tried to pull her trach out, she was told she would without her trach, she said "I know, I just want to go home". Hb 7.6. Afebrile, still very tachycardic. 1055ml out of right sided KAYLIN drain 09/30: Overnight hypoxic, on BIPAP. CXR with left sided white out lung. Significant mucous plug suctioned by RT with improvement in her ABG after 2 hours this morning. Not really active, tired, lethargic. 890ml out of drains past 24 hours. On vent. D/w daughter bedside. 10/16: To OR for pancreatic necrosectomy, cholecystectomy, lysis of adhesions, gastrostomy tube placement 10/24, awake on vent, weaning sedation, cont other, still with marked drainage 10/25: Still on fentanyl. WBC 15.4, Hb 8.7 Metabolic panel WNL except calcium 10.2 with albumin 1.1. She awakens off sedation, still connected to vent currently. 10/26: FiO2 40% 5 PEEP, WBC 13.4, Hb 7.9, platelets 551. Still on fentanyl, she is working with PT. 10/27: Off vent during the day. Working with PT. Labs stable. Hb to 8.5. Working with PT/OT. She has been suctioning quite a bit of respiratory secretions as well as loose bowels. C diff pending. 10/28: Afebrile, still with loose bowels overnight C. difficile negative. WBC up to 16 coughing up thick yellow sputum able to cough out her trach when taken off trach shield she still has O2 saturations 97%. Gastrostomy tube to gravity with fairly significant drainage that appears to be tube feeds and gastric secretions. She notes pain is better controlled with the fentanyl patch. Blood pressure elevated heart rate elevated is on metoprolol. Overnight febrile 101.9F, coughing up more thick yellow and green secretions. FiO2 33% with 94% O2 saturations. Had x3 BM yesterday. Cultures sent for sputum, fungal and blood cultures prognosis still poor, but improving slowly Cont ICU Vitals Vitals Vital Signs Date Time Temp Pulse Resp B/P (MAP) Pulse Ox O2 Delivery O2 Flow Rate FiO2 10/30/19 14:00 99.2 123 36 132/86 (101) 95 Trach shield 9.0 99.2 Physical Exam Physical Exam GENERAL: Propped up in bed, awake, weak appearing HEENT: Pupils equal, oral cavity dry. NGT out NECK: Tracheostomy LUNGS: Diminished aeration bases, CT on left HEART: S1, S2, regular, tachy ABDOMEN: Sightly less distended, bowel sounds hypoactive, soft, goyal x 2, 3 KAYLIN drains, G-J tube and + wound vac : Lind in place EXTREMITIES: Generalized edema, no cyanosis. SCDs & Podus boots bilaterally, SKIN: warm touch. No signs of rash. NEURO: awake, mouthing some words, tracking LUE-PICC without signs of complications LUE art-line out, mottling about old art-line site is improving. RP palpable, cap refill brisk. General: Alert, Cooperative, mild distress Heart: Regular rate (SR/ST), Other (distant heart sounds) Lungs: Crackles Abdomen: Soft, No tenderness, Other (drains in place with pancreatic necrosis) Extremities: Other (Diffuse edema) Skin: No rashes, No significant lesion Labs LABS Laboratory Tests Test 10/29/19 17:27 10/30/19 00:26 10/30/19 05:15 10/30/19 12:38 Glucose (Fingerstick) 116 mg/dL (70-99) 120 mg/dL (70-99) 302 mg/dL (70-99) White Blood Count 18.5 x10^3/uL (4.0-11.0) Red Blood Count 2.99 x10^6/uL (3.50-5.40) Hemoglobin 8.8 g/dL (12.0-15.5) Hematocrit 26.3 % (36.0-47.0) Mean Corpuscular Volume 88 fL (79-100) Mean Corpuscular Hemoglobin 29 pg (25-35) Mean Corpuscular Hemoglobin Concent 33 g/dL (31-37) Red Cell Distribution Width 15.0 % (11.5-14.5) Platelet Count 693 x10^3/uL (140-400) Neutrophils (%) (Auto) 82 % (31-73) Lymphocytes (%) (Auto) 10 % (24-48) Monocytes (%) (Auto) 7 % (0-9) Eosinophils (%) (Auto) 1 % (0-3) Basophils (%) (Auto) 0 % (0-3) Neutrophils # (Auto) 15.1 x10^3/uL (1.8-7.7) Lymphocytes # (Auto) 1.9 x10^3/uL (1.0-4.8) Monocytes # (Auto) 1.3 x10^3/uL (0.0-1.1) Eosinophils # (Auto) 0.1 x10^3/uL (0.0-0.7) Basophils # (Auto) 0.0 x10^3/uL (0.0-0.2) Sodium Level 139 mmol/L (136-145) Potassium Level 4.6 mmol/L (3.5-5.1) Chloride Level 103 mmol/L (98-107) Carbon Dioxide Level 30 mmol/L (21-32) Anion Gap 6 (6-14) Blood Urea Nitrogen 11 mg/dL (7-20) Creatinine 0.5 mg/dL (0.6-1.0) Estimated GFR (Cockcroft-Gault) 131.1 BUN/Creatinine Ratio 22 (6-20) Glucose Level 122 mg/dL (70-99) Calcium Level 9.3 mg/dL (8.5-10.1) Total Bilirubin 0.5 mg/dL (0.2-1.0) Aspartate Amino Transf (AST/SGOT) 23 U/L (15-37) Alanine Aminotransferase (ALT/SGPT) 35 U/L (14-59) Alkaline Phosphatase 156 U/L (46-116) Total Protein 4.8 g/dL (6.4-8.2) Albumin 1.5 g/dL (3.4-5.0) Albumin/Globulin Ratio 0.5 (1.0-1.7) Assessment and Plan Assessmemt and Plan Problems Medical Problems: (1) Acute pancreatitis Status: Acute (2) Cholelithiasis Status: Acute Comment Review of Relevant I have reviewed the following items kolby (where applicable) has been applied. Labs Laboratory Tests Test 10/28/19 18:00 10/29/19 00:38 10/29/19 06:10 10/29/19 06:14 Glucose (Fingerstick) 138 mg/dL (70-99) 147 mg/dL (70-99) 159 mg/dL (70-99) White Blood Count 16.0 x10^3/uL (4.0-11.0) Red Blood Count 2.99 x10^6/uL (3.50-5.40) Hemoglobin 8.8 g/dL (12.0-15.5) Hematocrit 26.6 % (36.0-47.0) Mean Corpuscular Volume 89 fL (79-100) Mean Corpuscular Hemoglobin 29 pg (25-35) Mean Corpuscular Hemoglobin Concent 33 g/dL (31-37) Red Cell Distribution Width 14.8 % (11.5-14.5) Platelet Count 728 x10^3/uL (140-400) Neutrophils (%) (Auto) 87 % (31-73) Lymphocytes (%) (Auto) 6 % (24-48) Monocytes (%) (Auto) 7 % (0-9) Eosinophils (%) (Auto) 1 % (0-3) Basophils (%) (Auto) 0 % (0-3) Neutrophils # (Auto) 13.9 x10^3/uL (1.8-7.7) Lymphocytes # (Auto) 0.9 x10^3/uL (1.0-4.8) Monocytes # (Auto) 1.0 x10^3/uL (0.0-1.1) Eosinophils # (Auto) 0.1 x10^3/uL (0.0-0.7) Basophils # (Auto) 0.0 x10^3/uL (0.0-0.2) Sodium Level 142 mmol/L (136-145) Potassium Level 4.7 mmol/L (3.5-5.1) Chloride Level 107 mmol/L (98-107) Carbon Dioxide Level 31 mmol/L (21-32) Anion Gap 4 (6-14) Blood Urea Nitrogen 13 mg/dL (7-20) Creatinine 0.5 mg/dL (0.6-1.0) Estimated GFR (Cockcroft-Gault) 131.1 Glucose Level 169 mg/dL (70-99) Calcium Level 9.4 mg/dL (8.5-10.1) Test 10/29/19 11:17 10/29/19 17:27 10/30/19 00:26 10/30/19 05:15 Glucose (Fingerstick) 144 mg/dL (70-99) 116 mg/dL (70-99) 120 mg/dL (70-99) White Blood Count 18.5 x10^3/uL (4.0-11.0) Red Blood Count 2.99 x10^6/uL (3.50-5.40) Hemoglobin 8.8 g/dL (12.0-15.5) Hematocrit 26.3 % (36.0-47.0) Mean Corpuscular Volume 88 fL (79-100) Mean Corpuscular Hemoglobin 29 pg (25-35) Mean Corpuscular Hemoglobin Concent 33 g/dL (31-37) Red Cell Distribution Width 15.0 % (11.5-14.5) Platelet Count 693 x10^3/uL (140-400) Neutrophils (%) (Auto) 82 % (31-73) Lymphocytes (%) (Auto) 10 % (24-48) Monocytes (%) (Auto) 7 % (0-9) Eosinophils (%) (Auto) 1 % (0-3) Basophils (%) (Auto) 0 % (0-3) Neutrophils # (Auto) 15.1 x10^3/uL (1.8-7.7) Lymphocytes # (Auto) 1.9 x10^3/uL (1.0-4.8) Monocytes # (Auto) 1.3 x10^3/uL (0.0-1.1) Eosinophils # (Auto) 0.1 x10^3/uL (0.0-0.7) Basophils # (Auto) 0.0 x10^3/uL (0.0-0.2) Sodium Level 139 mmol/L (136-145) Potassium Level 4.6 mmol/L (3.5-5.1) Chloride Level 103 mmol/L (98-107) Carbon Dioxide Level 30 mmol/L (21-32) Anion Gap 6 (6-14) Blood Urea Nitrogen 11 mg/dL (7-20) Creatinine 0.5 mg/dL (0.6-1.0) Estimated GFR (Cockcroft-Gault) 131.1 BUN/Creatinine Ratio 22 (6-20) Glucose Level 122 mg/dL (70-99) Calcium Level 9.3 mg/dL (8.5-10.1) Total Bilirubin 0.5 mg/dL (0.2-1.0) Aspartate Amino Transf (AST/SGOT) 23 U/L (15-37) Alanine Aminotransferase (ALT/SGPT) 35 U/L (14-59) Alkaline Phosphatase 156 U/L (46-116) Total Protein 4.8 g/dL (6.4-8.2) Albumin 1.5 g/dL (3.4-5.0) Albumin/Globulin Ratio 0.5 (1.0-1.7) Test 10/30/19 12:38 Glucose (Fingerstick) 302 mg/dL (70-99) Laboratory Tests Test 10/29/19 17:27 10/30/19 00:26 10/30/19 05:15 10/30/19 12:38 Glucose (Fingerstick) 116 mg/dL (70-99) 120 mg/dL (70-99) 302 mg/dL (70-99) White Blood Count 18.5 x10^3/uL (4.0-11.0) Red Blood Count 2.99 x10^6/uL (3.50-5.40) Hemoglobin 8.8 g/dL (12.0-15.5) Hematocrit 26.3 % (36.0-47.0) Mean Corpuscular Volume 88 fL (79-100) Mean Corpuscular Hemoglobin 29 pg (25-35) Mean Corpuscular Hemoglobin Concent 33 g/dL (31-37) Red Cell Distribution Width 15.0 % (11.5-14.5) Platelet Count 693 x10^3/uL (140-400) Neutrophils (%) (Auto) 82 % (31-73) Lymphocytes (%) (Auto) 10 % (24-48) Monocytes (%) (Auto) 7 % (0-9) Eosinophils (%) (Auto) 1 % (0-3) Basophils (%) (Auto) 0 % (0-3) Neutrophils # (Auto) 15.1 x10^3/uL (1.8-7.7) Lymphocytes # (Auto) 1.9 x10^3/uL (1.0-4.8) Monocytes # (Auto) 1.3 x10^3/uL (0.0-1.1) Eosinophils # (Auto) 0.1 x10^3/uL (0.0-0.7) Basophils # (Auto) 0.0 x10^3/uL (0.0-0.2) Sodium Level 139 mmol/L (136-145) Potassium Level 4.6 mmol/L (3.5-5.1) Chloride Level 103 mmol/L (98-107) Carbon Dioxide Level 30 mmol/L (21-32) Anion Gap 6 (6-14) Blood Urea Nitrogen 11 mg/dL (7-20) Creatinine 0.5 mg/dL (0.6-1.0) Estimated GFR (Cockcroft-Gault) 131.1 BUN/Creatinine Ratio 22 (6-20) Glucose Level 122 mg/dL (70-99) Calcium Level 9.3 mg/dL (8.5-10.1) Total Bilirubin 0.5 mg/dL (0.2-1.0) Aspartate Amino Transf (AST/SGOT) 23 U/L (15-37) Alanine Aminotransferase (ALT/SGPT) 35 U/L (14-59) Alkaline Phosphatase 156 U/L (46-116) Total Protein 4.8 g/dL (6.4-8.2) Albumin 1.5 g/dL (3.4-5.0) Albumin/Globulin Ratio 0.5 (1.0-1.7) Microbiology 10/18/19 Gram Stain - Final, Complete 10/18/19 Aerobic and Anaerobic Culture - Final, Complete 10/18/19 Antimicrobic Susceptibility - Final, Complete 10/16/19 Blood Culture - Final, Complete NO GROWTH AFTER 5 DAYS 10/03/19 Gram Stain - Final, Complete 10/03/19 Aerobic and Anaerobic Culture - Final, Complete 10/01/19 Gram Stain Evaluation - Final, Complete 10/01/19 Respiratory Culture - Final, Complete 10/01/19 Antimicrobic Susceptibility - Final, Complete 09/25/19 Urine Culture - Final, Complete 09/17/19 Gram Stain - Final, Complete 09/17/19 Aerobic Culture - Final, Complete Medications Current Medications Sodium Chloride 1,000 ml @ 1,000 mls/hr Q1H IV Last administered on 07/04/19at 03:00; Start 07/04/19 at 03:00; Stop 07/04/19 at 03:59; Status DC Ondansetron HCl (Zofran) 4 mg 1X ONCE IVP Last administered on 07/04/19at 03:27; Start 07/04/19 at 03:00; Stop 07/04/19 at 03:01; Status DC Morphine Sulfate (Morphine Sulfate) 4 mg 1X ONCE IV ; Start 07/04/19 at 03:00; Stop 07/04/19 at 03:01; Status Cancel Ketorolac Tromethamine (Toradol 30mg Vial) 30 mg 1X ONCE IV Last administered on 07/04/19at 02:54; Start 07/04/19 at 03:00; Stop 07/04/19 at 03:01; Status DC Fentanyl Citrate (Fentanyl 2ml Vial) 25 mcg 1X ONCE IVP Last administered on 07/04/19at 03:23; Start 07/04/19 at 03:30; Stop 07/04/19 at 03:31; Status DC Fentanyl Citrate (Fentanyl 2ml Vial) 100 mcg STK-MED ONCE .ROUTE ; Start 07/04/19 at 03:18; Stop 07/04/19 at 03:18; Status DC Iohexol (Omnipaque 350 Mg/ml) 90 ml 1X ONCE IV Last administered on 07/04/19at 03:25; Start 07/04/19 at 03:30; Stop 07/04/19 at 03:31; Status DC Info (CONTRAST GIVEN -- Rx MONITORING) 1 each PRN DAILY PRN MC SEE COMMENTS; Start 07/04/19 at 03:30; Stop 07/06/19 at 03:29; Status DC Hydromorphone HCl (Dilaudid) 0.5 mg 1X ONCE IV Last administered on 07/04/19at 03:55; Start 07/04/19 at 04:30; Stop 07/04/19 at 04:32; Status DC Ondansetron HCl (Zofran) 4 mg PRN Q8HRS PRN IV NAUSEA/VOMITING 1ST CHOICE; Start 07/04/19 at 05:00; Stop 07/04/19 at 09:27; Status DC Morphine Sulfate (Morphine Sulfate) 2 mg PRN Q2HR PRN IV SEVERE PAIN 7-10 Last administered on 07/05/19at 12:26; Start 07/04/19 at 05:00; Stop 07/05/19 at 14:15; Status DC Sodium Chloride 1,000 ml @ 125 mls/hr Q8H IV Last administered on 07/04/19at 20:56; Start 07/04/19 at 05:00; Stop 07/05/19 at 04:59; Status DC Hydromorphone HCl (Dilaudid) 0.5 mg PRN Q3HRS PRN IV SEVERE PAIN 7-10 Last administered on 07/05/19at 10:06; Start 07/04/19 at 05:00; Stop 07/05/19 at 12:01; Status DC Piperacillin Sod/ Tazobactam Sod 4.5 gm/Sodium Chloride 100 ml @ 200 mls/hr 1X ONCE IV Last administered on 07/04/19at 05:44; Start 07/04/19 at 06:00; Stop 07/04/19 at 06:29; Status DC Ondansetron HCl (Zofran) 4 mg PRN Q4HRS PRN IV NAUSEA/VOMITING 1ST CHOICE Last administered on 10/30/19at 08:22; Start 07/04/19 at 09:30 Insulin Human Lispro (HumaLOG) 0-9 UNITS Q6HRS SQ Last administered on 10/30/19at 12:43; Start 07/04/19 at 09:30 Dextrose (Dextrose 50%-Water Syringe) 12.5 gm PRN Q15MIN PRN IV SEE COMMENTS; Start 07/04/19 at 09:30 Pantoprazole Sodium (PROTONIX VIAL for IV PUSH) 40 mg DAILYAC IVP Last administered on 10/30/19at 08:18; Start 07/04/19 at 11:30 Prochlorperazine Edisylate (Compazine) 10 mg PRN Q6HRS PRN IV NAUSEA/VOMITING, 2nd CHOICE Last administered on 10/15/19at 10:53; Start 07/04/19 at 17:45 Atenolol (Tenormin) 100 mg DAILY PO ; Start 07/05/19 at 09:00; Stop 07/04/19 at 20:08; Status DC Metoprolol Tartrate (Lopressor Vial) 2.5 mg Q6HRS IVP Last administered on 07/05/19at 05:51; Start 07/04/19 at 20:15; Stop 07/05/19 at 10:02; Status DC Metoprolol Tartrate (Lopressor Vial) 5 mg Q6HRS IVP Last administered on at 00:12; Start 07/05/19 at 10:15; Stop 07/16/19 at 08:48; Status DC Hydromorphone HCl (Dilaudid) 1 mg PRN Q3HRS PRN IV SEVERE PAIN 7-10 Last administered on 07/11/19at 05:13; Start 07/05/19 at 12:00; Stop 07/19/19 at 00:25; Status DC Lidocaine HCl (Buffered Lidocaine 1%) 3 ml STK-MED ONCE .ROUTE ; Start 07/05/19 at 12:55; Stop 07/05/19 at 12:56; Status DC Albumin Human 500 ml @ 125 mls/hr 1X ONCE IV Last administered on 07/05/19at 14:33; Start 07/05/19 at 14:30; Stop 07/05/19 at 18:32; Status DC Norepinephrine Bitartrate 8 mg/ Dextrose 258 ml @ 17.299 mls/ hr CONT PRN IV PER PROTOCOL Last administered on 08/02/19at 12:48; Start 07/05/19 at 15:30; Stop 08/05/19 at 09:19; Status DC Sodium Chloride 1,000 ml @ 125 mls/hr Q8H IV Last administered on 07/05/19at 21:04; Start 07/05/19 at 16:00; Stop 07/06/19 at 02:42; Status DC Albumin Human 500 ml @ 125 mls/hr PRN BID PRN IV After every 2L NSS & BP < 90mm Last administered on 10/18/19at 16:06; Start 07/05/19 at 16:00; Stop 10/21/19 at 09:30; Status DC Iohexol (Omnipaque 300 Mg/ml) 60 ml 1X ONCE IV Last administered on 07/05/19at 17:20; Start 07/05/19 at 17:00; Stop 07/05/19 at 17:01; Status DC Info (CONTRAST GIVEN -- Rx MONITORING) 1 each PRN DAILY PRN MC SEE COMMENTS; Start 07/05/19 at 17:00; Stop 07/07/19 at 16:59; Status DC Meropenem 1 gm/ Sodium Chloride 100 ml @ 200 mls/hr Q8HRS IV Last administered on 07/06/19at 05:45; Start 07/05/19 at 20:00; Stop 07/06/19 at 08:48; Status DC Furosemide (Lasix) 40 mg 1X ONCE IVP Last administered on 07/05/19at 22:12; Start 07/05/19 at 22:30; Stop 07/05/19 at 22:31; Status DC Calcium Chloride 1000 mg/Sodium Chloride 110 ml @ 220 mls/hr 1X ONCE IV Last administered on 07/05/19at 22:11; Start 07/05/19 at 22:30; Stop 07/05/19 at 22:59; Status DC Albuterol Sulfate (Ventolin Neb Soln) 2.5 mg 1X ONCE NEB Last administered on 07/06/19at 00:56; Start 07/05/19 at 22:30; Stop 07/05/19 at 22:31; Status DC Insulin Human Regular (HumuLIN R VIAL) 5 unit 1X ONCE IV Last administered on 07/05/19at 22:14; Start 07/05/19 at 22:30; Stop 07/05/19 at 22:31; Status DC Magnesium Sulfate 50 ml @ 25 mls/hr 1X ONCE IV Last administered on 07/06/19at 02:57; Start 07/06/19 at 03:00; Stop 07/06/19 at 04:59; Status DC Calcium Gluconate 1000 mg/Sodium Chloride 110 ml @ 220 mls/hr 1X ONCE IV Last administered on 07/06/19at 02:46; Start 07/06/19 at 03:00; Stop 07/06/19 at 03:29; Status DC Sodium Chloride 1,000 ml @ 200 mls/hr Q5H IV Last administered on 07/06/19at 02:46; Start 07/06/19 at 03:00; Stop 07/06/19 at 10:21; Status DC Calcium Gluconate 1000 mg/Sodium Chloride 110 ml @ 220 mls/hr 1X ONCE IV Last administered on 07/06/19at 03:21; Start 07/06/19 at 03:30; Stop 07/06/19 at 03:59; Status DC Sodium Bicarbonate 50 meq/Sodium Chloride 1,050 ml @ 75 mls/hr Q14H IV Last a dministered on 07/10/19at 21:10; Start 07/06/19 at 07:30; Stop 07/11/19 at 10:28; Status DC Calcium Gluconate 2000 mg/Sodium Chloride 120 ml @ 220 mls/hr 1X ONCE IV Last administered on 07/06/19at 09:05; Start 07/06/19 at 07:30; Stop 07/06/19 at 08:02; Status DC Lidocaine HCl (Xylocaine-Mpf 1% 2ml Vial) 2 ml STK-MED ONCE .ROUTE ; Start 07/06/19 at 08:47; Stop 07/06/19 at 08:47; Status DC Meropenem 500 mg/ Sodium Chloride 50 ml @ 100 mls/hr Q12HR IV Last administered on 07/11/19at 21:01; Start 07/06/19 at 18:00; Stop 07/12/19 at 07:58; Status DC Lidocaine HCl (Buffered Lidocaine 1%) 3 ml STK-MED ONCE .ROUTE ; Start 07/06/19 at 09:46; Stop 07/06/19 at 09:46; Status DC Lidocaine HCl (Buffered Lidocaine 1%) 6 ml 1X ONCE INJ Last administered on 07/06/19at 10:26; Start 07/06/19 at 10:15; Stop 07/06/19 at 10:16; Status DC Info (Tpn Per Pharmacy) 1 each PRN DAILY PRN MC SEE COMMENTS Last administered on 10/30/19at 09:52; Start 07/06/19 at 12:00 Sodium Chloride 1,000 ml @ 1,000 mls/hr Q1H PRN IV hypotension; Start 07/06/19 at 12:07; Stop 07/06/19 at 18:06; Status DC Diphenhydramine HCl (Benadryl) 25 mg 1X PRN PRN IV ITCHING; Start 07/06/19 at 12:15; Stop 07/07/19 at 12:14; Status DC Diphenhydramine HCl (Benadryl) 25 mg 1X PRN PRN IV ITCHING; Start 07/06/19 at 12:15; Stop 07/07/19 at 12:14; Status DC Sodium Chloride 1,000 ml @ 400 mls/hr Q2H30M PRN IV PATENCY; Start 07/06/19 at 12:07; Stop 07/07/19 at 00:06; Status DC Info (PHARMACY MONITORING -- do not chart) 1 each PRN DAILY PRN MC SEE COMMENTS; Start 07/06/19 at 12:15; Stop 07/08/19 at 08:13; Status DC Sodium Chloride 90 meq/Calcium Gluconate 10 meq/ Multivitamins 10 ml/Chromium/ Copper/Manganese/ Seleni/Zn 1 ml/ Total Parenteral Nutrition/Amino Acids/Dextrose/ Fat Emulsion Intravenous 55.005 ml @ 2.292 mls/hr TPN CONT IV ; Start 07/06/19 at 22:00; Stop 07/06/19 at 12:33; Status DC Info (Tpn Per Pharmacy) 1 each PRN DAILY PRN MC SEE COMMENTS; Start 07/06/19 at 12:30; Status UNV Sodium Chloride 90 meq/Calcium Gluconate 10 meq/ Multivitamins 10 ml/Chromium/ Copper/Manganese/ Seleni/Zn 0.5 ml/ Total Parenteral Nutrition/Amino Acids/Dextrose/ Fat Emulsion Intravenous 1,512 ml @ 63 mls/hr TPN CONT IV Last administered on 07/06/19at 22:06; Start 07/06/19 at 22:00; Stop 07/07/19 at 21:59; Status DC Calcium Carbonate/ Glycine (Tums) 500 mg PRN AFTMEALHC PRN PO INDIGESTION; Start 07/06/19 at 17:45; Stop 08/31/19 at 10:25; Status DC Calcium Gluconate (Calcium Gluconate) 2,000 mg 1X ONCE IVP Last administered on 07/07/19at 02:19; Start 07/07/19 at 02:15; Stop 07/07/19 at 02:16; Status DC Calcium Chloride 3000 mg/Sodium Chloride 1,030 ml @ 50 mls/hr [id number] IV Last administered on 07/09/19at 02:17; Start 07/07/19 at 08:00; Stop 07/09/19 at 15:23; Status DC Lorazepam (Ativan Inj) 1 mg PRN Q4HRS PRN IVP ANXIETY / AGITATION, 2nd choic Last administered on 08/05/19at 03:51; Start 07/07/19 at 09:00; Stop 08/05/19 at 09:19; Status DC Sodium Chloride 1,000 ml @ 1,000 mls/hr Q1H PRN IV hypotension; Start 07/07/19 at 08:56; Stop 07/07/19 at 14:55; Status DC Albumin Human 200 ml @ 200 mls/hr 1X PRN PRN IV Hypotension; Start 07/07/19 at 09:00; Stop 07/07/19 at 14:59; Status DC Diphenhydramine HCl (Benadryl) 25 mg 1X PRN PRN IV ITCHING; Start 07/07/19 at 09:00; Stop 07/08/19 at 08:59; Status DC Diphenhydramine HCl (Benadryl) 25 mg 1X PRN PRN IV ITCHING; Start 07/07/19 at 09:00; Stop 07/08/19 at 08:59; Status DC Sodium Chloride 1,000 ml @ 400 mls/hr Q2H30M PRN IV PATENCY; Start 07/07/19 at 08:56; Stop 07/07/19 at 20:55; Status DC Info (PHARMACY MONITORING -- do not chart) 1 each PRN DAILY PRN MC SEE COMMENTS; Start 07/07/19 at 09:00; Status UNV Info (PHARMACY MONITORING -- do not chart) 1 each PRN DAILY PRN MC SEE COMMENTS; Start 07/07/19 at 09:00; Stop 07/08/19 at 08:13; Status DC Digoxin (Lanoxin) 500 mcg 1X ONCE IV Last administered on 07/07/19at 10:04; Start 07/07/19 at 10:00; Stop 07/07/19 at 10:01; Status DC Digoxin (Lanoxin) 125 mcg 1X ONCE IV Last administered on 07/07/19at 17:10; Start 07/07/19 at 18:00; Stop 07/07/19 at 18:01; Status DC Magnesium Sulfate 100 ml @ 25 mls/hr 1X ONCE IV Last administered on 07/07/19at 12:48; Start 07/07/19 at 13:00; Stop 07/07/19 at 16:59; Status DC Sodium Chloride 90 meq/Magnesium Sulfate 10 meq/ Calcium Gluconate 20 meq/ Multivitamins 10 ml/Chromium/ Copper/Manganese/ Seleni/Zn 0.5 ml/ Total Parenteral Nutrition/Amino Acids/Dextrose/ Fat Emulsion Intravenous 1,512 ml @ 63 mls/hr TPN CONT IV Last administered on 07/07/19at 22:25; Start 07/07/19 at 22:00; Stop 07/08/19 at 21:59; Status DC Sodium Chloride 1,000 ml @ 1,000 mls/hr Q1H PRN IV hypotension; Start 07/08/19 at 08:05; Stop 07/08/19 at 14:04; Status DC Albumin Human 200 ml @ 200 mls/hr 1X ONCE IV Last administered on 07/08/19at 08:57; Start 07/08/19 at 08:15; Stop 07/08/19 at 09:14; Status DC Diphenhydramine HCl (Benadryl) 25 mg 1X PRN PRN IV ITCHING; Start 07/08/19 at 08:15; Stop 07/09/19 at 08:14; Status DC Diphenhydramine HCl (Benadryl) 25 mg 1X PRN PRN IV ITCHING; Start 07/08/19 at 08:15; Stop 07/09/19 at 08:14; Status DC Sodium Chloride 1,000 ml @ 400 mls/hr Q2H30M PRN IV PATENCY; Start 07/08/19 at 08:05; Stop 07/08/19 at 20:04; Status DC Info (PHARMACY MONITORING -- do not chart) 1 each PRN DAILY PRN MC SEE COMMENTS; Start 07/08/19 at 08:15; Stop 07/12/19 at 07:57; Status DC Sodium Chloride 90 meq/Potassium Chloride 15 meq/ Potassium Phosphate 10 mmol/ Magnesium Sulfate 10 meq/Calcium Gluconate 20 meq/ Multivitamins 10 ml/Chromium/ Copper/Manganese/ Seleni/Zn 0.5 ml/ Total Parenteral Nutrition/Amino Acids/Dextrose/ Fat Emulsion Intravenous 1,512 ml @ 63 mls/hr TPN CONT IV Last administered on 07/08/19at 21:01; Start 07/08/19 at 22:00; Stop 07/09/19 at 21:59; Status DC Potassium Chloride/Water 100 ml @ 100 mls/hr 1X ONCE IV Last administered on 07/08/19at 14:09; Start 07/08/19 at 14:00; Stop 07/08/19 at 14:59; Status DC Benzocaine (Hurricaine One) 1 spray 1X ONCE MM Last administered on 07/08/19at 16:38; Start 07/08/19 at 14:30; Stop 07/08/19 at 14:31; Status DC Lidocaine HCl (Glydo (Lidocaine) Jelly) 1 ramu 1X ONCE MM Last administered on 07/08/19at 16:38; Start 07/08/19 at 14:30; Stop 07/08/19 at 14:31; Status DC Linezolid/Dextrose 300 ml @ 300 mls/hr Q12HR IV Last administered on 07/14/19at 21:04; Start 07/08/19 at 20:00; Stop 07/15/19 at 07:50; Status DC Acetaminophen (Tylenol) 650 mg PRN Q6HRS PRN PO MILD PAIN / TEMP; Start 07/09/19 at 03:30; Stop 07/09/19 at 03:36; Status DC Acetaminophen (Tylenol) 650 mg PRN Q6HRS PRN PEG MILD PAIN / TEMP Last administered on 08/04/19at 19:56; Start 07/09/19 at 03:36; Stop 08/31/19 at 10:25; Status DC Sodium Chloride 1,000 ml @ 1,000 mls/hr Q1H PRN IV hypotension; Start 07/09/19 at 07:50; Stop 07/09/19 at 13:49; Status DC Albumin Human 200 ml @ 200 mls/hr 1X PRN PRN IV Hypotension; Start 07/09/19 at 08:00; Stop 07/09/19 at 13:59; Status DC Sodium Chloride (Normal Saline Flush) 10 ml 1X PRN PRN IV AP catheter pack; Start 07/09/19 at 08:00; Stop 07/10/19 at 07:59; Status DC Sodium Chloride (Normal Saline Flush) 10 ml 1X PRN PRN IV BUSINESS LINE CONTROLLER catheter pack; Start 07/09/19 at 08:00; Stop 07/10/19 at 07:59; Status DC Sodium Chloride 1,000 ml @ 400 mls/hr Q2H30M PRN IV PATENCY; Start 07/09/19 at 07:50; Stop 07/09/19 at 19:49; Status DC Info (PHARMACY MONITORING -- do not chart) 1 each PRN DAILY PRN MC SEE COMMENTS; Start 07/09/19 at 08:00; Status UNV Info (PHARMACY MONITORING -- do not chart) 1 each PRN DAILY PRN MC SEE COMMENTS; Start 07/09/19 at 08:00; Stop 07/11/19 at 08:25; Status DC Sodium Chloride 90 meq/Potassium Chloride 15 meq/ Potassium Phosphate 10 mmol/ Magnesium Sulfate 10 meq/Calcium Gluconate 20 meq/ Multivitamins 10 ml/Chromium/ Copper/Manganese/ Seleni/Zn 0.5 ml/ Total Parenteral Nutrition/Amino Acids/Dextrose/ Fat Emulsion Intravenous 1,512 ml @ 63 mls/hr TPN CONT IV Last administered on 07/09/19at 20:57; Start 07/09/19 at 22:00; Stop 07/10/19 at 21:59; Status DC Sodium Chloride 90 meq/Potassium Chloride 15 meq/ Potassium Phosphate 15 mmol/ Magnesium Sulfate 10 meq/Calcium Gluconate 20 meq/ Multivitamins 10 ml/Chromium/ Copper/Manganese/ Seleni/Zn 0.5 ml/ Total Parenteral Nutrition/Amino Acids/Dextrose/ Fat Emulsion Intravenous 1,512 ml @ 63 mls/hr TPN CONT IV ; Start 07/10/19 at 22:00; Stop 07/10/19 at 14:16; Status DC Sodium Chloride 90 meq/Potassium Chloride 15 meq/ Potassium Phosphate 15 mmol/ Magnesium Sulfate 10 meq/Calcium Gluconate 20 meq/ Multivitamins 10 ml/Chromium/ Copper/Manganese/ Seleni/Zn 0.5 ml/ Total Parenteral Nutrition/Amino Acids/Dextrose/ Fat Emulsion Intravenous 1,200 ml @ 50 mls/hr TPN CONT IV ; Start 07/10/19 at 22:00; Stop 07/10/19 at 14:17; Status DC Sodium Chloride 90 meq/Potassium Chloride 15 meq/ Potassium Phosphate 10 mmol/ Magnesium Sulfate 10 meq/Calcium Gluconate 20 meq/ Multivitamins 10 ml/Chromium/ Copper/Manganese/ Seleni/Zn 0.5 ml/ Total Parenteral Nutrition/Amino Acids/Dextrose/ Fat Emulsion Intravenous 1,200 ml @ 50 mls/hr TPN CONT IV Last administered on 07/10/19at 23:29; Start 07/10/19 at 22:00; Stop 07/11/19 at 21:59; Status DC Sodium Chloride 1,000 ml @ 1,000 mls/hr Q1H PRN IV hypotension; Start 07/11/19 at 07:28; Stop 07/11/19 at 13:27; Status DC Albumin Human 200 ml @ 200 mls/hr 1X ONCE IV Last administered on 07/11/19at 08:51; Start 07/11/19 at 07:30; Stop 07/11/19 at 08:29; Status DC Diphenhydramine HCl (Benadryl) 25 mg 1X PRN PRN IV ITCHING; Start 07/11/19 at 0 7:30; Stop 07/12/19 at 07:29; Status DC Diphenhydramine HCl (Benadryl) 25 mg 1X PRN PRN IV ITCHING; Start 07/11/19 at 07:30; Stop 07/12/19 at 07:29; Status DC Sodium Chloride 1,000 ml @ 400 mls/hr Q2H30M PRN IV PATENCY; Start 07/11/19 at 07:28; Stop 07/11/19 at 19:27; Status DC Info (PHARMACY MONITORING -- do not chart) 1 each PRN DAILY PRN MC SEE COMMENTS; Start 07/11/19 at 07:30; Stop 07/22/19 at 13:01; Status DC Metronidazole 100 ml @ 100 mls/hr Q6HRS IV Last administered on 07/27/19at 06:26; Start 07/11/19 at 08:30; Stop 07/27/19 at 09:58; Status DC Micafungin Sodium 100 mg/Dextrose 100 ml @ 100 mls/hr Q24H IV Last admin istered on 08/18/19at 08:18; Start 07/11/19 at 09:00; Stop 08/18/19 at 20:58; Status DC Propofol 0 ml @ As Directed STK-MED ONCE IV ; Start 07/11/19 at 07:53; Stop 07/11/19 at 07:53; Status DC Etomidate (Amidate) 20 mg STK-MED ONCE IV ; Start 07/11/19 at 07:53; Stop 07/11/19 at 07:54; Status DC Midazolam HCl (Versed) 5 mg STK-MED ONCE .ROUTE ; Start 07/11/19 at 07:57; Stop 07/11/19 at 07:57; Status DC Fentanyl Citrate 30 ml @ 0 mls/hr CONT PRN IV SEE PROTOCOL Last administered on 08/05/19at 06:12; Start 07/11/19 at 08:15; Stop 08/05/19 at 09:19; Status DC Artificial Tears (Artificial Tears) 1 drop PRN Q1HR PRN OU DRY EYE, 1st choice; Start 07/11/19 at 08:15; Stop 08/17/19 at 05:31; Status DC Midazolam HCl 50 mg/Sodium Chloride 50 ml @ 0 mls/hr CONT PRN IV SEE PROTOCOL Last administered on 07/14/19at 22:39; Start 07/11/19 at 08:15; Stop 07/16/19 at 15:59; Status DC Etomidate (Amidate) 8 mg 1X ONCE IV Last administered on 07/11/19at 08:33; Start 07/11/19 at 08:30; Stop 07/11/19 at 08:31; Status DC Succinylcholine Chloride (Anectine) 120 mg 1X ONCE IV Last administered on 07/11/19at 08:34; Start 07/11/19 at 08:30; Stop 07/11/19 at 08:31; Status DC Midazolam HCl (Versed) 5 mg 1X ONCE IV ; Start 07/11/19 at 08:30; Stop 07/11/19 at 08:31; Status DC Potassium Chloride 15 meq/ Bicarbonate Dialysis Soln w/ out KCl 5,007.5 ml @ 1,000 mls/ hr Q5H1M IV Last administered on 07/12/19at 11:11; Start 07/11/19 at 12:00; Stop 07/12/19 at 11:15; Status DC Potassium Chloride 15 meq/ Bicarbonate Dialysis Soln w/ out KCl 5,007.5 ml @ 1,000 mls/ hr Q5H1M IV Last administered on 07/12/19at 11:12; Start 07/11/19 at 12:00; Stop 07/12/19 at 11:17; Status DC Potassium Chloride 15 meq/ Bicarbonate Dialysis Soln w/ out KCl 5,007.5 ml @ 1,000 mls/ hr Q5H1M IV Last administered on 07/12/19at 11:11; Start 07/11/19 at 12:00; Stop 07/12/19 at 11:19; Status DC Sodium Chloride 90 meq/Potassium Chloride 15 meq/ Potassium Phosphate 10 mmol/ Magnesium Sulfate 10 meq/Calcium Gluconate 20 meq/ Multivitamins 10 ml/Chromium/ Copper/Manganese/ Seleni/Zn 0.5 ml/ Total Parenteral Nutrition/Amino Acids/Dextrose/ Fat Emulsion Intravenous 1,400 ml @ 58.333 mls/ hr TPN CONT IV Last administered on 07/11/19at 21:42; Start 07/11/19 at 22:00; Stop 07/12/19 at 21:59; Status DC Heparin Sodium (Porcine) (Heparin Sodium) 5,000 unit Q8HRS SQ Last administered on 07/16/19at 05:55; Start 07/11/19 at 15:00; Stop 07/16/19 at 13:28; Status DC Meropenem 500 mg/ Sodium Chloride 50 ml @ 100 mls/hr Q6HRS IV Last administered on 07/13/19at 06:00; Start 07/12/19 at 09:00; Stop 07/13/19 at 07:29; Status DC Potassium Phosphate 20 mmol/ Sodium Chloride 106.6667 ml @ 51.667 m... 1X ONCE IV Last administered on 07/12/19at 11:22; Start 07/12/19 at 10:15; Stop 07/12/19 at 12:18; Status DC Acetaminophen (Tylenol Supp) 650 mg PRN Q6HRS PRN [place] MILD PAIN / TEMP > 100.3'F Last administered on 10/30/19at 04:42; Start 07/12/19 at 10:30 Potassium Chloride/Water 100 ml @ 100 mls/hr Q1H IV Last administered on 07/12/19at 12:12; Start 07/12/19 at 11:00; Stop 07/12/19 at 12:59; Status DC Potassium Chloride 20 meq/ Bicarbonate Dialysis Soln w/ out KCl 5,010 ml @ 1,000 mls/hr Q5H1M IV Last administered on 07/13/19at 08:48; Start 07/12/19 at 12:00; Stop 07/13/19 at 13:03; Status DC Potassium Chloride 20 meq/ Bicarbonate Dialysis Soln w/ out KCl 5,010 ml @ 1,000 mls/hr Q5H1M IV Last administered on 07/17/19at 14:52; Start 07/12/19 at 11:30; Stop 07/17/19 at 19:59; Status DC Potassium Chloride 20 meq/ Bicarbonate Dialysis Soln w/ out KCl 5,010 ml @ 1,000 mls/hr Q5H1M IV Last administered on 07/17/19at 14:53; Start 07/12/19 at 11:30; Stop 07/17/19 at 19:59; Status DC Sodium Chloride 90 meq/Potassium Chloride 15 meq/ Potassium Phosphate 15 mmol/ Magnesium Sulfate 10 meq/Calcium Gluconate 15 meq/ Multivitamins 10 ml/Chromium/ Copper/Manganese/ Seleni/Zn 0.5 ml/ Total Parenteral Nutrition/Amino Acids/Dextrose/ Fat Emulsion Intravenous 1,400 ml @ 58.333 mls/ hr TPN CONT IV Last administered on 07/12/19at 22:17; Start 07/12/19 at 22:00; Stop 07/13/19 at 21:59; Status DC Cefepime HCl (Maxipime) 2 gm Q12HR IVP Last administered on 07/26/19at 20:56; Start 07/13/19 at 09:00; Stop 07/27/19 at 09:58; Status DC Daptomycin 500 mg/ Sodium Chloride 50 ml @ 100 mls/hr Q48H IV Last administered on 07/29/19at 09:57; Start 07/13/19 at 08:30; Stop 07/29/19 at 10:07; Status DC Lidocaine HCl (Buffered Lidocaine 1%) 3 ml 1X ONCE INJ Last administered on 07/13/19at 10:27; Start 07/13/19 at 10:30; Stop 07/13/19 at 10:31; Status DC Potassium Phosphate 20 mmol/ Sodium Chloride 106.6667 ml @ 51.667 m... 1X ONCE IV Last administered on 07/13/19at 12:51; Start 07/13/19 at 13:00; Stop 07/13/19 at 15:03; Status DC Sodium Chloride 90 meq/Potassium Chloride 15 meq/ Potassium Phosphate 18 mmol/ Magnesium Sulfate 8 meq/Calcium Gluconate 15 meq/ Multivitamins 10 ml/Chromium/ Copper/Manganese/ Seleni/Zn 0.5 ml/ Total Parenteral Nutrition/Amino Acids/Dextrose/ Fat Emulsion Intravenous 1,400 ml @ 58.333 mls/ hr TPN CONT IV Last administered on 07/13/19at 22:16; Start 07/13/19 at 22:00; Stop 07/14/19 at 21:59; Status DC Potassium Chloride 20 meq/ Bicarbonate Dialysis Soln w/ out KCl 5,010 ml @ 1,000 mls/hr Q5H1M IV Last administered on 07/17/19at 14:54; Start 07/13/19 at 16:00; Stop 07/17/19 at 19:59; Status DC Multi-Ingred Cream/Lotion/Oil/ Oint (Artificial Tears Eye Ointment) 1 ramu PRN Q1HR PRN OU DRY EYE, 2nd choice Last administered on 08/01/19at 08:19; Start 07/13/19 at 17:30; Stop 09/21/19 at 14:39; Status DC Sodium Chloride 90 meq/Potassium Chloride 15 meq/ Potassium Phosphate 18 mmol/ Magnesium Sulfate 8 meq/Calcium Gluconate 15 meq/ Multivitamins 10 ml/Chromium/ Copper/Manganese/ Seleni/Zn 0.5 ml/ Total Parenteral Nutrition/Amino Acids/Dextrose/ Fat Emulsion Intravenous 1,400 ml @ 58.333 mls/ hr TPN CONT IV Last administered on 07/14/19at 22:00; Start 07/14/19 at 22:00; Stop 07/15/19 at 21:59; Status DC Albumin Human 500 ml @ 125 mls/hr 1X ONCE IV ; Start 07/14/19 at 14:15; Stop 07/14/19 at 18:14; Status DC Sodium Chloride 90 meq/Potassium Chloride 15 meq/ Potassium Phosphate 18 mmol/ Magnesium Sulfate 8 meq/Calcium Gluconate 15 meq/ Multivitamins 10 ml/Chromium/ Copper/Manganese/ Seleni/Zn 0.5 ml/ Insulin Human Regular 10 unit/ Total Parenteral Nutrition/Amino Acids/Dextrose/ Fat Emulsion Intravenous 1,400 ml @ 58.333 mls/ hr TPN CONT IV Last administered on 07/15/19at 21:43; Start 07/15/19 at 22:00; Stop 07/16/19 at 21:59; Status DC Lidocaine HCl (Buffered Lidocaine 1%) 3 ml STK-MED ONCE .ROUTE ; Start 07/13/19 at 10:00; Stop 07/15/19 at 13:57; Status DC Midazolam HCl 100 mg/Sodium Chloride 100 ml @ 7 mls/hr CONT PRN IV SEE PROTOCOL Last administered on 07/27/19at 15:35; Start 07/16/19 at 16:00; Stop 09/21/19 at 14:38; Status DC Sodium Chloride 90 meq/Potassium Chloride 15 meq/ Potassium Phosphate 18 mmol/ Magnesium Sulfate 8 meq/Calcium Gluconate 15 meq/ Multivitamins 10 ml/Chromium/ Copper/Manganese/ Seleni/Zn 0.5 ml/ Insulin Human Regular 15 unit/ Total Parenteral Nutrition/Amino Acids/Dextrose/ Fat Emulsion Intravenous 1,400 ml @ 58.333 mls/ hr TPN CONT IV Last administered on 07/16/19at 20:34; Start 07/16/19 at 22:00; Stop 07/17/19 at 21:59; Status DC Info (Icu Electrolyte Protocol) 1 ea CONT PRN PRN MC PER PROTOCOL; Start 07/17/19 at 13:15 Sodium Chloride 90 meq/Potassium Chloride 15 meq/ Potassium Phosphate 18 mmol/ Magnesium Sulfate 8 meq/Calcium Gluconate 15 meq/ Multivitamins 10 ml/Chromium/ Copper/Manganese/ Seleni/Zn 0.5 ml/ Insulin Human Regular 15 unit/ Total Parenteral Nutrition/Amino Acids/Dextrose/ Fat Emulsion Intravenous 1,400 ml @ 58.333 mls/ hr TPN CONT IV Last administered on 07/17/19at 22:05; Start 07/17/19 at 22:00; Stop 07/18/19 at 21:59; Status DC Potassium Chloride 15 meq/ Bicarbonate Dialysis Soln w/ out KCl 5,007.5 ml @ 1,000 mls/ hr Q5H1M IV Last administered on 07/20/19at 18:14; Start 07/17/19 at 20:00; Stop 07/21/19 at 13:08; Status DC Potassium Chloride 15 meq/ Bicarbonate Dialysis Soln w/ out KCl 5,007.5 ml @ 1,000 mls/ hr Q5H1M IV Last administered on 07/20/19at 18:14; Start 07/17/19 at 20:00; Stop 07/21/19 at 13:08; Status DC Potassium Chloride 15 meq/ Bicarbonate Dialysis Soln w/ out KCl 5,007.5 ml @ 1,000 mls/ hr Q5H1M IV Last administered on 07/20/19at 18:14; Start 07/17/19 at 20:00; Stop 07/21/19 at 13:08; Status DC Iohexol (Omnipaque 240 Mg/ml) 30 ml 1X ONCE PO Last administered on 07/18/19at 11:30; Start 07/18/19 at 11:30; Stop 07/18/19 at 11:33; Status DC Info (CONTRAST GIVEN -- Rx MONITORING) 1 each PRN DAILY PRN MC SEE COMMENTS; Start 07/18/19 at 11:45; Stop 07/20/19 at 11:44; Status DC Sodium Chloride 90 meq/Potassium Chloride 15 meq/ Potassium Phosphate 18 mmol/ Magnesium Sulfate 8 meq/Calcium Gluconate 15 meq/ Multivitamins 10 ml/Chromium/ Copper/Manganese/ Seleni/Zn 0.5 ml/ Insulin Human Regular 15 unit/ Total Parenteral Nutrition/Amino Acids/Dextrose/ Fat Emulsion Intravenous 1,400 ml @ 58.333 mls/ hr TPN CONT IV Last administered on 07/18/19at 21:47; Start 07/18/19 at 22:00; Stop 07/19/19 at 21:59; Status DC Sodium Chloride 90 meq/Potassium Chloride 15 meq/ Potassium Phosphate 18 mmol/ Magnesium Sulfate 8 meq/Calcium Gluconate 15 meq/ Multivitamins 10 ml/Chromium/ Copper/Manganese/ Seleni/Zn 0.5 ml/ Insulin Human Regular 20 unit/ Total Parenteral Nutrition/Amino Acids/Dextrose/ Fat Emulsion Intravenous 1,400 ml @ 58.333 mls/ hr TPN CONT IV Last administered on 07/19/19at 21:36; Start 0 at 22:00; Stop 07/20/19 at 21:59; Status DC Alteplase, Recombinant (Cathflo For Central Catheter Clearance) 1 mg 1X ONCE INT CAT Last administered on 07/19/19at 20:03; Start 07/19/19 at 19:30; Stop 07/19/19 at 19:46; Status DC Alteplase, Recombinant (Cathflo For Central Catheter Clearance) 1 mg 1X ONCE INT CAT Last administered on 07/19/19at 22:05; Start 07/19/19 at 22:00; Stop 07/19/19 at 22:01; Status DC Sodium Chloride 90 meq/Potassium Chloride 15 meq/ Potassium Phosphate 18 mmol/ Magnesium Sulfate 8 meq/Calcium Gluconate 15 meq/ Multivitamins 10 ml/Chromium/ Copper/Manganese/ Seleni/Zn 0.5 ml/ Insulin Human Regular 20 unit/ Total Parenteral Nutrition/Amino Acids/Dextrose/ Fat Emulsion Intravenous 1,400 ml @ 58.333 mls/ hr TPN CONT IV Last administered on 07/20/19at 21:30; Start 07/20/19 at 22:00; Stop 07/21/19 at 21:59; Status DC Dexmedetomidine HCl 400 mcg/ Sodium Chloride 100 ml @ 0 mls/hr CONT PRN IV ANXIETY / AGITATION Last administered on 09/17/19at 12:57; Start 07/21/19 at 08:15; Stop 09/17/19 at 18:31; Status DC Sodium Chloride 500 ml @ 500 mls/hr 1X PRN PRN IV ELEVATED BP, SEE COMMENTS; Start 07/21/19 at 08:15 Atropine Sulfate (ATROPINE 0.5mg SYRINGE) 0.5 mg PRN Q5MIN PRN IV SEE COMMENTS; Start 07/21/19 at 08:15 Furosemide (Lasix) 20 mg 1X ONCE IVP Last administered on 07/21/19at 08:19; Start 07/21/19 at 08:15; Stop 07/21/19 at 08:16; Status DC Lidocaine HCl (Buffered Lidocaine 1%) 3 ml STK-MED ONCE .ROUTE ; Start 07/21/19 at 08:39; Stop 07/21/19 at 08:39; Status DC Lidocaine HCl (Buffered Lidocaine 1%) 6 ml 1X ONCE INJ Last administered on 07/21/19at 09:05; Start 07/21/19 at 09:00; Stop 07/21/19 at 09:06; Status DC Sodium Chloride 90 meq/Potassium Chloride 15 meq/ Potassium Phosphate 18 mmol/ Magnesium Sulfate 8 meq/Calcium Gluconate 15 meq/ Multivitamins 10 ml/Chromium/ Copper/Manganese/ Seleni/Zn 0.5 ml/ Insulin Human Regular 20 unit/ Total Parenteral Nutrition/Amino Acids/Dextrose/ Fat Emulsion Intravenous 1,400 ml @ 58.333 mls/ hr TPN CONT IV Last administered on 07/21/19at 22:45; Start 07/21/19 at 22:00; Stop 07/22/19 at 21:59; Status DC Sodium Chloride 1,000 ml @ 1,000 mls/hr Q1H PRN IV hypotension; Start 07/22/19 a t 07:30; Stop 07/22/19 at 13:29; Status DC Albumin Human 200 ml @ 200 mls/hr 1X PRN PRN IV Hypotension Last administered on 07/22/19at 09:36; Start 07/22/19 at 07:30; Stop 07/22/19 at 13:29; Status DC Sodium Chloride (Normal Saline Flush) 10 ml 1X PRN PRN IV AP catheter pack; Start 07/22/19 at 07:30; Stop 07/22/19 at 21:29; Status DC Sodium Chloride (Normal Saline Flush) 10 ml 1X PRN PRN IV BUSINESS LINE CONTROLLER catheter pack; Start 07/22/19 at 07:30; Stop 07/23/19 at 07:29; Status DC Sodium Chloride 1,000 ml @ 400 mls/hr Q2H30M PRN IV PATENCY; Start 07/22/19 at 07:30; Stop 07/22/19 at 19:29; Status DC Info (PHARMACY MONITORING -- do not chart) 1 each PRN DAILY PRN MC SEE COMMENTS; Start 07/22/19 at 07:30; Stop 07/22/19 at 13:02; Status DC Info (PHARMACY MONITORING -- do not chart) 1 each PRN DAILY PRN MC SEE COMMENTS; Start 07/22/19 at 07:30; Stop 07/24/19 at 12:45; Status DC Sodium Chloride 90 meq/Potassium Chloride 15 meq/ Potassium Phosphate 10 mmol/ Magnesium Sulfate 8 meq/Calcium Gluconate 15 meq/ Multivitamins 10 ml/Chromium/ Copper/Manganese/ Seleni/Zn 0.5 ml/ Insulin Human Regular 25 unit/ Total Parenteral Nutrition/Amino Acids/Dextrose/ Fat Emulsion Intravenous 1,400 ml @ 58.333 mls/ hr TPN CONT IV Last administered on 07/22/19at 22:19; Start 07/22/19 at 22:00; Stop 07/23/19 at 21:59; Status DC Heparin Sodium (Porcine) (Heparin Sodium) 5,000 unit Q12HR SQ Last administered on 08/14/19at 08:59; Start 07/22/19 at 21:00; Stop 08/14/19 at 10:05; Status DC Ondansetron HCl (Zofran) 4 mg PRN Q6HRS PRN IV NAUSEA/VOMITING; Start 07/25/19 at 07:00; Stop 07/26/19 at 06:59; Status DC Fentanyl Citrate (Fentanyl 2ml Vial) 25 mcg PRN Q5MIN PRN IV MILD PAIN 1-3; Start 07/25/19 at 07:00; Stop 07/26/19 at 06:59; Status DC Fentanyl Citrate (Fentanyl 2ml Vial) 50 mcg PRN Q5MIN PRN IV MODERATE TO SEVERE PAIN; Start 07/25/19 at 07:00; Stop 07/26/19 at 06:59; Status DC Ringer's Solution 1,000 ml @ 30 mls/hr Q24H IV ; Start 07/25/19 at 07:00; Stop 07/25/19 at 18:59; Status DC Lidocaine HCl (Xylocaine-Mpf 1% 2ml Vial) 2 ml PRN 1X PRN ID PRIOR TO IV START; Start 07/25/19 at 07:00; Stop 07/26/19 at 06:59; Status DC Prochlorperazine Edisylate (Compazine) 5 mg PACU PRN PRN IV NAUSEA, MRX1; Start 07/25/19 at 07:00; Stop 07/26/19 at 06:59; Status DC Sodium Chloride 1,000 ml @ 1,000 mls/hr Q1H PRN IV hypotension; Start 07/23/19 at 09:10; Stop 07/23/19 at 15:09; Status DC Albumin Human 200 ml @ 200 mls/hr 1X PRN PRN IV Hypotension Last administered on 07/23/19at 10:10; Start 07/23/19 at 09:15; Stop 07/23/19 at 15:14; Status DC Sodium Chloride 1,000 ml @ 400 mls/hr Q2H30M PRN IV PATENCY; Start 07/23/19 at 09:10; Stop 07/23/19 at 21:09; Status DC Info (PHARMACY MONITORING -- do not chart) 1 each PRN DAILY PRN MC SEE COMMENTS; Start 07/23/19 at 09:15; Stop 07/24/19 at 12:45; Status DC Info (PHARMACY MONITORING -- do not chart) 1 each PRN DAILY PRN MC SEE COMMENTS; Start 07/23/19 at 09:15; Stop 07/24/19 at 12:45; Status DC Sodium Chloride 90 meq/Potassium Chloride 15 meq/ Potassium Phosphate 10 mmol/ Magnesium Sulfate 8 meq/Calcium Gluconate 15 meq/ Multivitamins 10 ml/Chromium/ Copper/Manganese/ Seleni/Zn 0.5 ml/ Insulin Human Regular 25 unit/ Total Parenteral Nutrition/Amino Acids/Dextrose/ Fat Emulsion Intravenous 1,400 ml @ 58.333 mls/ hr TPN CONT IV Last administered on 07/23/19at 22:10; Start 07/23/19 at 22:00; Stop 07/24/19 at 21:59; Status DC Magnesium Sulfate 50 ml @ 25 mls/hr PRN DAILY PRN IV for Mag < 1.7 on am labs Last administered on 10/06/19at 10:57; Start 07/24/19 at 09:15 Sodium Chloride 90 meq/Potassium Chloride 15 meq/ Potassium Phosphate 10 mmol/ Magnesium Sulfate 8 meq/Calcium Gluconate 15 meq/ Multivitamins 10 ml/Chromium/ Copper/Manganese/ Seleni/Zn 0.5 ml/ Insulin Human Regular 25 unit/ Total Parenteral Nutrition/Amino Acids/Dextrose/ Fat Emulsion Intravenous 1,400 ml @ 58.333 mls/ hr TPN CONT IV Last administered on 07/24/19at 21:20; Start 07/24/19 at 22:00; Stop 07/25/19 at 21:59; Status DC Sodium Chloride 1,000 ml @ 1,000 mls/hr Q1H PRN IV hypotension; Start 07/24/19 at 12:23; Stop 07/24/19 at 18:22; Status DC Albumin Human 200 ml @ 200 mls/hr 1X ONCE IV Last administered on 07/24/19at 13:34; Start 07/24/19 at 12:30; Stop 07/24/19 at 13:29; Status DC Diphenhydramine HCl (Benadryl) 25 mg 1X PRN PRN IV ITCHING; Start 07/24/19 at 12:30; Stop 07/25/19 at 12:29; Status DC Diphenhydramine HCl (Benadryl) 25 mg 1X PRN PRN IV ITCHING; Start 07/24/19 at 12:30; Stop 07/25/19 at 12:29; Status DC Info (PHARMACY MONITORING -- do not chart) 1 each PRN DAILY PRN MC SEE COMMENTS; Start 07/24/19 at 12:30; Status Cancel Bupivacaine HCl/ Epinephrine Bitart (Sensorcain-Epi 0.5%-1:[id number] Mpf) 30 ml STK-MED ONCE .ROUTE Last administered on 07/25/19at 11:44; Start 07/25/19 at 11:00; Stop 07/25/19 at 11:01; Status DC Cellulose (Surgicel Fibrillar 1x2) 1 each STK-MED ONCE .ROUTE ; Start 07/25/19 at 11:00; Stop 07/25/19 at 11:01; Status DC Sodium Chloride 90 meq/Potassium Chloride 15 meq/ Potassium Phosphate 10 mmol/ Magnesium Sulfate 12 meq/Calcium Gluconate 15 meq/ Multivitamins 10 ml/Chromium/ Copper/Manganese/ Seleni/Zn 0.5 ml/ Insulin Human Regular 25 unit/ Total Parent eral Nutrition/Amino Acids/Dextrose/ Fat Emulsion Intravenous 1,400 ml @ 58.333 mls/ hr TPN CONT IV Last administered on 07/25/19at 22:24; Start 07/25/19 at 22:00; Stop 07/26/19 at 21:59; Status DC Propofol 20 ml @ As Directed STK-MED ONCE IV ; Start 07/25/19 at 11:07; Stop 07/25/19 at 11:07; Status DC Cellulose (Surgicel Hemostat 4x8) 1 each STK-MED ONCE .ROUTE Last administered on 07/25/19at 11:44; Start 07/25/19 at 11:55; Stop 07/25/19 at 11:56; Status DC Sevoflurane (Ultane) 60 ml STK-MED ONCE IH ; Start 07/25/19 at 12:46; Stop 07/25/19 at 12:46; Status DC Sodium Chloride 1,000 ml @ 1,000 mls/hr Q1H PRN IV hypotension; Start 07/25/19 at 13:51; Stop 07/25/19 at 19:50; Status DC Albumin Human 200 ml @ 200 mls/hr 1X PRN PRN IV Hypotension Last administered on 07/25/19at 14:51; Start 07/25/19 at 14:00; Stop 07/25/19 at 19:59; Status DC Diphenhydramine HCl (Benadryl) 25 mg 1X PRN PRN IV ITCHING; Start 07/25/19 at 14:00; Stop 07/26/19 at 13:59; Status DC Diphenhydramine HCl (Benadryl) 25 mg 1X PRN PRN IV ITCHING; Start 07/25/19 at 14:00; Stop 07/26/19 at 13:59; Status DC Sodium Chloride 1,000 ml @ 400 mls/hr Q2H30M PRN IV PATENCY; Start 07/25/19 at 13:51; Stop 07/26/19 at 01:50; Status DC Info (PHARMACY MONITORING -- do not chart) 1 each PRN DAILY PRN MC SEE COMMENT S; Start 07/25/19 at 14:00; Stop 07/28/19 at 08:16; Status DC Heparin Sodium (Porcine) (Hep Lock Adult) 500 unit STK-MED ONCE IVP ; Start 07/26/19 at 09:29; Stop 07/26/19 at 09:30; Status DC Sodium Chloride 1,000 ml @ 1,000 mls/hr Q1H PRN IV hypotension; Start 07/26/19 at 10:43; Stop 07/26/19 at 16:42; Status DC Sodium Chloride 1,000 ml @ 400 mls/hr Q2H30M PRN IV PATENCY; Start 07/26/19 at 10:43; Stop 07/26/19 at 22:42; Status DC Info (PHARMACY MONITORING -- do not chart) 1 each PRN DAILY PRN MC SEE COMMENTS ; Start 07/26/19 at 10:45; Status UNV Info (PHARMACY MONITORING -- do not chart) 1 each PRN DAILY PRN MC SEE COMMENTS; Start 07/26/19 at 10:45; Status UNV Sodium Chloride 90 meq/Potassium Chloride 15 meq/ Magnesium Sulfate 12 meq/Calcium Gluconate 15 meq/ Multivitamins 10 ml/Chromium/ Copper/Manganese/ Seleni/Zn 0.5 ml/ Insulin Human Regular 25 unit/ Total Parenteral Nutrition/Ami no Acids/Dextrose/ Fat Emulsion Intravenous 1,400 ml @ 58.333 mls/ hr TPN CONT IV Last administered on 07/26/19at 22:13; Start 07/26/19 at 22:00; Stop 07/27/19 at 21:59; Status DC Sodium Chloride 1,000 ml @ 1,000 mls/hr Q1H PRN IV hypotension; Start 07/27/19 at 07:50; Stop 07/27/19 at 13:49; Status DC Albumin Human 200 ml @ 200 mls/hr 1X ONCE IV ; Start 07/27/19 at 08:00; Stop 07/27/19 at 08:53; Status DC Diphenhydramine HCl (Benadryl) 25 mg 1X PRN PRN IV ITCHING; Start 07/27/19 at 08:00; Stop 07/28/19 at 07:59; Status DC Diphenhydramine HCl (Benadryl) 25 mg 1X PRN PRN IV ITCHING; Start 07/27/19 at 08:00; Stop 07/28/19 at 07:59; Status DC Info (PHARMACY MONITORING -- do not chart) 1 each PRN DAILY PRN MC SEE COMMENTS; Start 07/27/19 at 08:00; Stop 07/28/19 at 08:16; Status DC Albumin Human 50 ml @ 50 mls/hr 1X ONCE IV ; Start 07/27/19 at 08:53; Stop 07/27/19 at 08:56; Status DC Albumin Human 200 ml @ 50 mls/hr PRN 1X PRN IV HYPOTENSION Last administered on 08/02/19at 11:54; Start 07/27/19 at 09:00; Stop 09/08/19 at 11:14; Status DC Meropenem 500 mg/ Sodium Chloride 50 ml @ 100 mls/hr Q12H IV Last administered on 08/16/19at 10:45; Start 07/27/19 at 10:00; Stop 08/16/19 at 12:37; Status DC Sodium Chloride 90 meq/Magnesium Sulfate 12 meq/ Calcium Gluconate 15 meq/ Multivitamins 10 ml/Chromium/ Copper/Manganese/ Seleni/Zn 0.5 ml/ Insulin Human Regular 25 unit/ Total Parenteral Nutrition/Amino Acids/Dextrose/ Fat Emulsion Intravenous 1,400 ml @ 58.333 mls/ hr TPN CONT IV Last administered on 07/27/19at 21:41; Start 07/27/19 at 22:00; Stop 07/28/19 at 21:59; Status DC Sodium Chloride 1,000 ml @ 1,000 mls/hr Q1H PRN IV hypotension; Start 07/28/19 at 07:58; Stop 07/28/19 at 13:57; Status DC Albumin Human 200 ml @ 200 mls/hr 1X PRN PRN IV Hypotension Last administered on 07/28/19at 09:30; Start 07/28/19 at 08:00; Stop 07/28/19 at 13:59; Status DC Sodium Chloride 1,000 ml @ 400 mls/hr Q2H30M PRN IV PATENCY; Start 07/28/19 at 07:58; Stop 07/28/19 at 19:57; Status DC Info (PHARMACY MONITORING -- do not chart) 1 each PRN DAILY PRN MC SEE COMMENTS; Start 07/28/19 at 08:00; Status Cancel Info (PHARMACY MONITORING -- do not chart) 1 each PRN DAILY PRN MC SEE COMMENTS; Start 07/28/19 at 08:15; Status UNV Sodium Chloride 90 meq/Potassium Phosphate 5 mmol/ Magnesium Sulfate 12 m eq/Calcium Gluconate 15 meq/ Multivitamins 10 ml/Chromium/ Copper/Manganese/ Seleni/Zn 0.5 ml/ Insulin Human Regular 30 unit/ Total Parenteral Nutrition/Amino Acids/Dextrose/ Fat Emulsion Intravenous 1,400 ml @ 58.333 mls/ hr TPN CONT IV Last administered on 07/28/19at 22:08; Start 07/28/19 at 22:00; Stop 07/29/19 at 21:59; Status DC Linezolid/Dextrose 300 ml @ 300 mls/hr Q12HR IV Last administered on 08/08/19at 20:40; Start 07/29/19 at 11:00; Stop 08/09/19 at 08:10; Status DC Sodium Chloride 90 meq/Potassium Phosphate 15 mmol/ Magnesium Sulfate 12 meq/Calcium Gluconate 15 meq/ Multivitamins 10 ml/Chromium/ Copper/Manganese/ Seleni/Zn 0.5 ml/ Insulin Human Regular 30 unit/ Total Parenteral Nutrition/Amino Acids/Dextrose/ Fat Emulsion Intravenous 1,400 ml @ 58.333 mls/ hr TPN CONT IV Last administered on 07/29/19at 21:49; Start 07/29/19 at 22:00; Stop 07/30/19 at 21:59; Status DC Sodium Chloride 90 meq/Potassium Phosphate 15 mmol/ Magnesium Sulfate 12 meq/Calcium Gluconate 15 meq/ Multivitamins 10 ml/Chromium/ Copper/Manganese/ Seleni/Zn 0.5 ml/ Insulin Human Regular 40 unit/ Total Parenteral Nutrition/Amino Acids/Dextrose/ Fat Emulsion Intravenous 1,400 ml @ 58.333 mls/ hr TPN CONT IV Last administered on 07/30/19at 21:21; Start 07/30/19 at 22:00; Stop 07/31/19 at 21:59; Status DC Sodium Chloride 1,000 ml @ 1,000 mls/hr Q1H PRN IV hypotension; Start 07/30/19 at 13:26; Stop 07/30/19 at 19:25; Status DC Albumin Human 200 ml @ 200 mls/hr 1X PRN PRN IV Hypotension Last administered on 07/30/19at 15:00; Start 07/30/19 at 13:30; Stop 07/30/19 at 19:29; Status DC Sodium Chloride (Normal Saline Flush) 10 ml 1X PRN PRN IV AP catheter pack; Start 07/30/19 at 13:30; Stop 07/31/19 at 13:29; Status DC Sodium Chloride (Normal Saline Flush) 10 ml 1X PRN PRN IV [employer] catheter pack; Start 07/30/19 at 13:30; Stop 07/31/19 at 13:29; Status DC Sodium Chloride 1,000 ml @ 400 mls/hr Q2H30M PRN IV PATENCY; Start 07/30/19 at 13:26; Stop 07/31/19 at 01:25; Status DC Info (PHARMACY MONITORING -- do not chart) 1 each PRN DAILY PRN MC SEE COMMENTS; Start 07/30/19 at 13:30; Stop 07/30/19 at 13:33; Status DC Info (PHARMACY MONITORING -- do not chart) 1 each PRN DAILY PRN MC SEE COMMENTS; Start 07/30/19 at 13:30; Stop 07/30/19 at 13:34; Status DC Sodium Chloride 90 meq/Potassium Phosphate 19 mmol/ Magnesium Sulfate 12 meq/Calcium Gluconate 15 meq/ Multivitamins 10 ml/Chromium/ Copper/Manganese/ Seleni/Zn 0.5 ml/ Insulin Human Regular 40 unit/ Total Parenteral Nutrition/Amino Acids/Dextrose/ Fat Emulsion Intravenous 1,400 ml @ 58.333 mls/ hr TPN CONT IV Last administered on 07/31/19at 21:54; Start 07/31/19 at 22:00; Stop 08/01/19 at 21:59; Status DC Sodium Chloride 1,000 ml @ 1,000 mls/hr Q1H PRN IV hypotension; Start 08/01/19 at 09:35; Stop 08/01/19 at 15:34; Status DC Albumin Human 200 ml @ 200 mls/hr 1X PRN PRN IV Hypotension; Start 08/01/19 at 09:45; Stop 08/01/19 at 15:44; Status DC Diphenhydramine HCl (Benadryl) 25 mg 1X PRN PRN IV ITCHING; Start 08/01/19 at 09:45; Stop 08/02/19 at 09:44; Status DC Diphenhydramine HCl (Benadryl) 25 mg 1X PRN PRN IV ITCHING; Start 08/01/19 at 09:45; Stop 08/02/19 at 09:44; Status DC Sodium Chloride 1,000 ml @ 400 mls/hr Q2H30M PRN IV PATENCY; Start 08/01/19 at 09:35; Stop 08/01/19 at 21:34; Status DC Info (PHARMACY MONITORING -- do not chart) 1 each PRN DAILY PRN MC SEE COMMENTS; Start 08/01/19 at 09:45; Status Cancel Sodium Chloride 100 meq/Potassium Phosphate 19 mmol/ Magnesium Sulfate 12 meq/Calcium Gluconate 15 meq/ Multivitamins 10 ml/Chromium/ Copper/Manganese/ Seleni/Zn 0.5 ml/ Insulin Human Regular 40 unit/ Potassium Chloride 20 meq/ Total Parenteral Nutrition/Amino Acids/Dextrose/ Fat Emulsion Intravenous 1,400 ml @ 58.333 mls/ hr TPN CONT IV Last administered on 08/01/19at 22:02; Start 08/01/19 at 22:00; Stop 08/02/19 at 21:59; Status DC Furosemide (Lasix) 40 mg 1X ONCE IVP Last administered on 08/01/19at 14:39; Start 08/01/19 at 14:30; Stop 08/01/19 at 14:31; Status DC Metronidazole 100 ml @ 100 mls/hr Q8HRS IV Last administered on 08/09/19at 06:04; Start 08/02/19 at 10:00; Stop 08/09/19 at 08:10; Status DC Sodium Chloride 1,000 ml @ 1,000 mls/hr Q1H PRN IV hypotension; Start 08/02/19 at 08:00; Stop 08/02/19 at 13:59; Status DC Albumin Human 200 ml @ 200 mls/hr 1X PRN PRN IV Hypotension; Start 08/02/19 at 08:00; Stop 08/02/19 at 13:59; Status DC Sodium Chloride 1,000 ml @ 400 mls/hr Q2H30M PRN IV PATENCY; Start 08/02/19 at 08:00; Stop 08/02/19 at 19:59; Status DC Info (PHARMACY MONITORING -- do not chart) 1 each PRN DAILY PRN MC SEE COMMENTS; Start 08/02/19 at 11:30; Status UNV Info (PHARMACY MONITORING -- do not chart) 1 each PRN DAILY PRN MC SEE COMMENTS; Start 08/02/19 at 11:30; Stop 08/04/19 at 12:13; Status DC Sodium Chloride 100 meq/Potassium Phosphate 19 mmol/ Magnesium Sulfate 12 meq/Calcium Gluconate 15 meq/ Multivitamins 10 ml/Chromium/ Copper/Manganese/ Seleni/Zn 0.5 ml/ Insulin Human Regular 40 unit/ Potassium Chloride 20 meq/ Total Parenteral Nutrition/Amino Acids/Dextrose/ Fat Emulsion Intravenous 1,400 ml @ 58.333 mls/ hr TPN CONT IV Last administered on 08/02/19at 21:52; Start 08/02/19 at 22:00; Stop 08/03/19 at 21:59; Status DC Sodium Chloride (Normal Saline Flush) 10 ml QSHIFT PRN IV AFTER MEDS AND BLOOD DRAWS; Start 08/02/19 at 15:00; Stop 08/30/19 at 11:27; Status DC Sodium Chloride (Normal Saline Flush) 10 ml PRN Q5MIN PRN IV AFTER MEDS AND BLOOD DRAWS; Start 08/02/19 at 15:00 Sodium Chloride (Normal Saline Flush) 20 ml PRN Q5MIN PRN IV AFTER MEDS AND BLOOD DRAWS; Start 08/02/19 at 15:00 Sodium Chloride 100 meq/Potassium Phosphate 19 mmol/ Magnesium Sulfate 12 meq/Calcium Gluconate 15 meq/ Multivitamins 10 ml/Chromium/ Copper/Manganese/ Seleni/Zn 0.5 ml/ Insulin Human Regular 40 unit/ Potassium Chloride 20 meq/ Total Parenteral Nutrition/Amino Acids/Dextrose/ Fat Emulsion Intravenous 1,400 ml @ 58.333 mls/ hr TPN CONT IV Last administered on 08/03/19at 21:20; Start 08/03/19 at 22:00; Stop 08/04/19 at 21:59; Status DC Lidocaine HCl (Buffered Lidocaine 1%) 3 ml STK-MED ONCE .ROUTE ; Start 08/03/19 at 13:16; Stop 08/03/19 at 13:16; Status DC Lidocaine HCl (Buffered Lidocaine 1%) 6 ml 1X ONCE INJ Last administered on 08/03/19at 13:45; Start 08/03/19 at 13:30; Stop 08/03/19 at 13:31; Status DC Albumin Human 100 ml @ 100 mls/hr 1X ONCE IV Last administered on 08/03/19at 15:41; Start 08/03/19 at 15:00; Stop 08/03/19 at 15:59; Status DC Albumin Human 50 ml @ 50 mls/hr 1X ONCE IV Last administered on 08/03/19at 15:00; Start 08/03/19 at 15:00; Stop 08/03/19 at 15:59; Status DC Info (PHARMACY MONITORING -- do not chart) 1 each PRN DAILY PRN MC SEE COMMENTS; Start 08/04/19 at 11:30; Status Cancel Info (PHARMACY MONITORING -- do not chart) 1 each PRN DAILY PRN MC SEE COMMENTS; Start 08/04/19 at 11:30; Status UNV Sodium Chloride 100 meq/Potassium Phosphate 10 mmol/ Magnesium Sulfate 12 meq/Calcium Gluconate 15 meq/ Multivitamins 10 ml/Chromium/ Copper/Manganese/ Seleni/Zn 0.5 ml/ Insulin Human Regular 35 unit/ Potassium Chloride 20 meq/ Total Parenteral Nutrition/Amino Acids/Dextrose/ Fat Emulsion Intravenous 1,400 ml @ 58.333 mls/ hr TPN CONT IV Last administered on 08/04/19at 22:10; Start 08/04/19 at 22:00; Stop 08/05/19 at 21:59; Status DC Sodium Chloride 100 meq/Potassium Phosphate 5 mmol/ Magnesium Sulfate 12 meq/Calcium Gluconate 15 meq/ Multivitamins 10 ml/Chromium/ Copper/Manganese/ Seleni/Zn 0.5 ml/ Insulin Human Regular 35 unit/ Potassium Chloride 20 meq/ Total Parenteral Nutrition/Amino Acids/Dextrose/ Fat Emulsion Intravenous 1,400 ml @ 58.333 mls/ hr TPN CONT IV Last administered on 08/05/19at 22:59; Start 08/05/19 at 22:00; Stop 08/06/19 at 21:59; Status DC Sodium Chloride 1,000 ml @ 1,000 mls/hr Q1H PRN IV hypotension; Start 08/06/19 at 08:27; Stop 08/06/19 at 14:26; Status DC Albumin Human 200 ml @ 200 mls/hr 1X PRN PRN IV Hypotension Last administered on 08/06/19at 09:18; Start 08/06/19 at 08:30; Stop 08/06/19 at 14:29; Status DC Sodium Chloride 1,000 ml @ 400 mls/hr Q2H30M PRN IV PATENCY; Start 08/06/19 at 08:27; Stop 08/06/19 at 20:26; Status DC Info (PHARMACY MONITORING -- do not chart) 1 each PRN DAILY PRN MC SEE COMMENTS; Start 08/06/19 at 08:30; Status Cancel Info (PHARMACY MONITORING -- do not chart) 1 each PRN DAILY PRN MC SEE COMMENTS; Start 08/06/19 at 08:30; Stop 08/14/19 at 13:10; Status DC Sodium Chloride 100 meq/Potassium Chloride 40 meq/ Magnesium Sulfate 15 meq/Calcium Gluconate 15 meq/ Multivitamins 10 ml/Chromium/ Copper/Manganese/ Seleni/Zn 0.5 ml/ Insulin Human Regular 35 unit/ Total Parenteral Nutrition/Amino Acids/Dextrose/ Fat Emulsion Intravenous 1,400 ml @ 58.333 mls/ hr TPN CONT IV Last administered on 08/06/19at 22:00; Start 08/06/19 at 22:00; Stop 08/07/19 at 21:59; Status DC Potassium Chloride/Water 100 ml @ 100 mls/hr 1X ONCE IV Last administered on 08/06/19at 17:28; Start 08/06/19 at 14:45; Stop 08/06/19 at 15:44; Status DC Sodium Chloride 100 meq/Potassium Chloride 40 meq/ Magnesium Sulfate 15 meq/Calcium Gluconate 15 meq/ Multivitamins 10 ml/Chromium/ Copper/Manganese/ Seleni/Zn 0.5 ml/ Insulin Human Regular 35 unit/ Total Parenteral Nutrition/Amino Acids/Dextrose/ Fat Emulsion Intravenous 1,400 ml @ 58.333 mls/ hr TPN CONT IV Last administered on 08/07/19at 22:46; Start 08/07/19 at 22:00; Stop 08/08/19 at 21:59; Status DC Sodium Chloride 100 meq/Potassium Chloride 40 meq/ Magnesium Sulfate 20 meq/Calcium Gluconate 15 meq/ Multivitamins 10 ml/Chromium/ Copper/Manganese/ Seleni/Zn 0.5 ml/ Insulin Human Regular 35 unit/ Total Parenteral Nutrition /Amino Acids/Dextrose/ Fat Emulsion Intravenous 1,400 ml @ 58.333 mls/ hr TPN CONT IV Last administered on 08/08/19at 22:31; Start 08/08/19 at 22:00; Stop 08/09/19 at 21:59; Status DC Fentanyl Citrate (Fentanyl 2ml Vial) 50 mcg PRN Q2HR PRN IVP PAIN Last administered on 08/15/19at 13:32; Start 08/08/19 at 21:00; Stop 08/16/19 at 12:53; Status DC Fentanyl Citrate (Fentanyl 2ml Vial) 25 mcg PRN Q2HR PRN IVP PAIN; Start 08/08/19 at 21:00; Stop 08/16/19 at 12:54; Status DC Enoxaparin Sodium (Lovenox 100mg Syringe) 100 mg Q12HR SQ ; Start 08/09/19 at 21:00; Status UNV Amino Acids/ Glycerin/ Electrolytes 1,000 ml @ 75 mls/hr [id number] IV ; Start 08/08/19 at 21:15; Status UNV Sodium Chloride 1,000 ml @ 1,000 mls/hr Q1H PRN IV hypotension; Start 08/09/19 at 07:56; Stop 08/09/19 at 13:55; Status DC Albumin Human 200 ml @ 200 mls/hr 1X PRN PRN IV Hypotension Last administered on 08/09/19at 08:40; Start 08/09/19 at 08:00; Stop 08/09/19 at 13:59; Status DC Sodium Chloride 1,000 ml @ 400 mls/hr Q2H30M PRN IV PATENCY; Start 08/09/19 at 07:56; Stop 08/09/19 at 19:55; Status DC Info (PHARMACY MONITORING -- do not chart) 1 each PRN DAILY PRN MC SEE COMMENTS; Start 08/09/19 at 08:00; Status UNV Info (PHARMACY MONITORING -- do not chart) 1 each PRN DAILY PRN MC SEE COMMENTS; Start 08/09/19 at 08:00; Status UNV Daptomycin 430 mg/ Sodium Chloride 50 ml @ 100 mls/hr Q24H IV Last administe red on 08/09/19at 12:35; Start 08/09/19 at 09:00; Stop 08/09/19 at 12:49; Status DC Sodium Chloride 100 meq/Potassium Chloride 40 meq/ Magnesium Sulfate 20 meq/Calcium Gluconate 15 meq/ Multivitamins 10 ml/Chromium/ Copper/Manganese/ Seleni/Zn 0.5 ml/ Insulin Human Regular 35 unit/ Total Parenteral Nutrition/Amino Acids/Dextrose/ Fat Emulsion Intravenous 1,400 ml @ 58.333 mls/ hr TPN CONT IV Last administered on 08/09/19at 21:26; Start 08/09/19 at 22:00; Stop 08/10/19 at 21:59; Status DC Daptomycin 430 mg/ Sodium Chloride 50 ml @ 100 mls/hr Q48H IV ; Start 08/11/19 at 09:00; Stop 08/10/19 at 11:55; Status DC Sodium Chloride 100 meq/Potassium Chloride 40 meq/ Magnesium Sulfate 20 meq/Calcium Gluconate 15 meq/ Multivitamins 10 ml/Chromium/ Copper/Manganese/ Seleni/Zn 0.5 ml/ Insulin Human Regular 35 unit/ Total Parenteral Nutrition/Amino Acids/Dextrose/ Fat Emulsion Intravenous 1,400 ml @ 58.333 mls/ hr TPN CONT IV Last administered on 08/10/19at 22:27; Start 08/10/19 at 22:00; Stop 08/11/19 at 21:59; Status DC Daptomycin 430 mg/ Sodium Chloride 50 ml @ 100 mls/hr Q24H IV Last administered on 08/12/19at 15:07; Start 08/10/19 at 13:00; Stop 08/13/19 at 13:15; Status DC Sodium Chloride 100 meq/Potassium Chloride 40 meq/ Magnesium Sulfate 20 meq/Calcium Gluconate 10 meq/ Multivitamins 10 ml/Chromium/ Copper/Manganese/ Seleni/Zn 0.5 ml/ Insulin Human Regular 35 unit/ Total Parenteral Nutrition/Amino Acids/Dextrose/ Fat Emulsion Intravenous 1,400 ml @ 58.333 mls/ hr TPN CONT IV Last administered on 08/12/19at 00:06; Start 08/11/19 at 22:00; Stop 08/12/19 at 21:59; Status DC Alteplase, Recombinant (Cathflo For Central Catheter Clearance) 1 mg 1X ONCE INT CAT Last administered on 08/12/19at 11:44; Start 08/12/19 at 10:45; Stop 08/12/19 at 10:46; Status DC Ondansetron HCl (Zofran) 4 mg PRN Q6HRS PRN IV NAUSEA/VOMITING; Start 08/15/19 at 07:00; Stop 08/16/19 at 06:59; Status DC Fentanyl Citrate (Fentanyl 2ml Vial) 25 mcg PRN Q5MIN PRN IV MILD PAIN 1-3; Start 08/15/19 at 07:00; Stop 08/16/19 at 06:59; Status DC Fentanyl Citrate (Fentanyl 2ml Vial) 50 mcg PRN Q5MIN PRN IV MODERATE TO SEVERE PAIN Last administered on 08/15/19at 10:17; Start 08/15/19 at 07:00; Stop 08/16/19 at 06:59; Status DC Ringer's Solution 1,000 ml @ 30 mls/hr Q24H IV ; Start 08/15/19 at 07:00; Stop 08/15/19 at 18:59; Status DC Lidocaine HCl (Xylocaine-Mpf 1% 2ml Vial) 2 ml PRN 1X PRN ID PRIOR TO IV START; Start 08/15/19 at 07:00; Stop 08/16/19 at 06:59; Status DC Prochlorperazine Edisylate (Compazine) 5 mg PACU PRN PRN IV NAUSEA, MRX1; Start 08/15/19 at 07:00; Stop 08/16/19 at 06:59; Status DC Sodium Acetate 50 meq/Potassium Acetate 55 meq/ Magnesium Sulfate 20 meq/Calcium Gluconate 10 meq/ Multivitamins 10 ml/Chromium/ Copper/Manganese/ Seleni/Zn 0.5 ml/ Insulin Human Regular 35 unit/ Total Parenteral Nutrition/Amino Acids/Dextrose/ Fat Emulsion Intravenous 1,400 ml @ 58.333 mls/ hr TPN CONT IV ; Start 08/12/19 at 22:00; Stop 08/12/19 at 14:15; Status DC Sodium Acetate 50 meq/Potassium Acetate 55 meq/ Magnesium Sulfate 20 meq/Calcium Gluconate 10 meq/ Multivitamins 10 ml/Chromium/ Copper/Manganese/ Seleni/Zn 0.5 ml/ Insulin Human Regular 35 unit/ Total Parenteral Nutrition/Amino Acids/Dextrose/ Fat Emulsion Intravenous 1,800 ml @ 75 mls/hr TPN CONT IV Last administered on 08/12/19at 22:38; Start 08/12/19 at 22:00; Stop 08/13/19 at 21:59; Status DC Sodium Chloride 1,000 ml @ 1,000 mls/hr Q1H PRN IV hypotension; Start 08/12/19 at 15:31; Stop 08/12/19 at 21:30; Status DC Diphenhydramine HCl (Benadryl) 25 mg 1X PRN PRN IV ITCHING; Start 08/12/19 at 15:45; Stop 08/13/19 at 15:44; Status DC Diphenhydramine HCl (Benadryl) 25 mg 1X PRN PRN IV ITCHING; Start 08/12/19 at 15:45; Stop 08/13/19 at 15:44; Status DC Sodium Chloride 1,000 ml @ 400 mls/hr Q2H30M PRN IV PATENCY; Start 08/12/19 at 15:31; Stop 08/13/19 at 03:30; Status DC Info (PHARMACY MONITORING -- do not chart) 1 each PRN DAILY PRN MC SEE COMMENT S; Start 08/12/19 at 15:45; Stop 09/13/19 at 14:14; Status DC Sodium Acetate 50 meq/Potassium Acetate 55 meq/ Magnesium Sulfate 20 meq/Calcium Gluconate 10 meq/ Multivitamins 10 ml/Chromium/ Copper/Manganese/ Seleni/Zn 0.5 ml/ Insulin Human Regular 35 unit/ Total Parenteral Nutrition/Amino Acids/Dextrose/ Fat Emulsion Intravenous 1,800 ml @ 75 mls/hr TPN CONT IV Last administered on 08/13/19at 22:03; Start 08/13/19 at 22:00; Stop 08/14/19 at 21:59; Status DC Daptomycin 430 mg/ Sodium Chloride 50 ml @ 100 mls/hr Q24H IV Last administered on 08/18/19at 13:00; Start 08/13/19 at 13:00; Stop 08/18/19 at 20:58; Status DC Heparin Sodium (Porcine) 1000 unit/Sodium Chloride 1,001 ml @ 1,001 mls/hr 1X ONCE IRR ; Start 08/15/19 at 06:00; Stop 08/15/19 at 06:59; Status DC Potassium Acetate 55 meq/Magnesium Sulfate 20 meq/ Calcium Gluconate 10 meq/ Multivitamins 10 ml/Chromium/ Copper/Manganese/ Seleni/Zn 0.5 ml/ Insulin Human Regular 35 unit/ Total Parenteral Nutrition/Amino Acids/Dextrose/ Fat Emulsion Intravenous 1,920 ml @ 80 mls/hr TPN CONT IV Last administered on 08/14/19at 22:10; Start 08/14/19 at 22:00; Stop 08/15/19 at 21:59; Status DC Dexamethasone Sodium Phosphate (Decadron) 4 mg STK-MED ONCE .ROUTE ; Start 08/15/19 at 10:56; Stop 08/15/19 at 10:57; Status DC Ondansetron HCl (Zofran) 4 mg STK-MED ONCE .ROUTE ; Start 08/15/19 at 10:56; Stop 08/15/19 at 10:57; Status DC Rocuronium [place] (Zemuron) 50 mg STK-MED ONCE .ROUTE ; Start 08/15/19 at 10:56; Stop 08/15/19 at 10:57; Status DC Fentanyl Citrate (Fentanyl 2ml Vial) 100 mcg STK-MED ONCE .ROUTE ; Start 08/15/19 at 10:56; Stop 08/15/19 at 10:57; Status DC Bupivacaine HCl/ Epinephrine Bitart (Sensorcain-Epi 0.5%-1:[id number] Mpf) 30 ml STK-MED ONCE .ROUTE Last administered on 08/15/19at 12:01; Start 08/15/19 at 10:58; Stop 08/15/19 at 10:58; Status DC Cellulose (Surgicel Hemostat 2x14) 1 each STK-MED ONCE .ROUTE ; Start 08/15/19 at 10:58; Stop 08/15/19 at 10:59; Status DC Iohexol (Omnipaque 300 Mg/ml) 50 ml STK-MED ONCE .ROUTE ; Start 08/15/19 at 10:58; Stop 08/15/19 at 10:59; Status DC Cellulose (Surgicel Hemostat 4x8) 1 each STK-MED ONCE .ROUTE ; Start 08/15/19 at 10:58; Stop 08/15/19 at 10:59; Status DC Bisacodyl (Dulcolax Supp) 10 mg STK-MED ONCE .ROUTE ; Start 08/15/19 at 10:59; Stop 08/15/19 at 10:59; Status DC Heparin Sodium (Porcine) 1000 unit/Sodium Chloride 1,001 ml @ 1,001 mls/hr 1X ONCE IRR ; Start 08/15/19 at 12:00; Stop 08/15/19 at 12:59; Status DC Propofol 20 ml @ As Directed STK-MED ONCE IV ; Start 08/15/19 at 11:05; Stop 08/15/19 at 11:05; Status DC Sevoflurane (Ultane) 90 ml STK-MED ONCE IH ; Start 08/15/19 at 11:05; Stop 08/15/19 at 11:05; Status DC Sevoflurane (Ultane) 60 ml STK-MED ONCE IH ; Start 08/15/19 at 12:26; Stop 08/15/19 at 12:27; Status DC Propofol 20 ml @ As Directed STK-MED ONCE IV ; Start 08/15/19 at 12:26; Stop 08/15/19 at 12:27; Status DC Phenylephrine HCl (PHENYLEPHRINE in 0.9% NACL PF) 1 mg STK-MED ONCE IV ; Start 08/15/19 at 12:34; Stop 08/15/19 at 12:34; Status DC Heparin Sodium (Porcine) (Heparin Sodium) 5,000 unit Q12HR SQ Last administered on 08/24/19at 20:57; Start 08/15/19 at 21:00; Stop 08/25/19 at 09:59; Status DC Sodium Chloride (Normal Saline Flush) 3 ml QSHIFT PRN IV AFTER MEDS AND BLOOD DRAWS; Start 08/15/19 at 13:45; Status Cancel Naloxone HCl (Narcan) 0.4 mg PRN Q2MIN PRN IV SEE INSTRUCTIONS Last administered on 09/24/19at 15:15; Start 08/15/19 at 13:45; Stop 10/19/19 at 16:00; Status DC Sodium Chloride 1,000 ml @ 25 mls/hr Q24H IV Last administered on 09/13/19at 13:37; Start 08/15/19 at 13:37; Stop 09/16/19 at 13:09; Status DC Naloxone HCl (Narcan) 0.4 mg PRN Q2MIN PRN IV SEE INSTRUCTIONS; Start 08/15/19 at 14:30; Status UNV Sodium Chloride 1,000 ml @ 25 mls/hr Q24H IV ; Start 08/15/19 at 14:30; Status UNV Hydromorphone HCl 30 ml @ 0 mls/hr CONT PRN PRN IV PER PROTOCOL Last administered on 08/20/19at 16:08; Start 08/15/19 at 14:30; Stop 08/22/19 at 08:55; Status DC Potassium Acetate 55 meq/Magnesium Sulfate 20 meq/ Calcium Gluconate 10 meq/ Multivitamins 10 ml/Chromium/ Copper/Manganese/ Seleni/Zn 0.5 ml/ Insulin Human Regular 35 unit/ Total Parenteral Nutrition/Amino Acids/Dextrose/ Fat Emulsion Intravenous 1,920 ml @ 80 mls/hr TPN CONT IV Last administered on 08/15/19at 22:01; Start 08/15/19 at 22:00; Stop 08/16/19 at 21:59; Status DC Bumetanide (Bumex) 2 mg [id number] IV Last administered on 08/19/19at 13:50; Start 08/16/19 at 14:00; Stop 08/20/19 at 14:10; Status DC Meropenem 1 gm/ Sodium Chloride 100 ml @ 200 mls/hr Q8HRS IV Last administered on 09/09/19at 05:53; Start 08/16/19 at 14:00; Stop 09/09/19 at 09:31; Status DC Potassium Acetate 55 meq/Magnesium Sulfate 20 meq/ Calcium Gluconate 10 meq/ Multivitamins 10 ml/Chromium/ Copper/Manganese/ Seleni/Zn 0.5 ml/ Insulin Human Regular 35 unit/ Total Parenteral Nutrition/Amino Acids/Dextrose/ Fat Emulsion Intravenous 1,920 ml @ 80 mls/hr TPN CONT IV Last administered on 08/16/19at 22:02; Start 08/16/19 at 22:00; Stop 08/17/19 at 21:59; Status DC Hydromorphone HCl (Dilaudid Standard PATTERN[employer]ER PLASTICS) 12 mg STK-MED ONCE IV ; Start 08/15/19 at 14:35; Stop 08/16/19 at 13:53; Status DC Artificial Tears (Artificial Tears) 1 drop PRN Q15MIN PRN OU DRY EYE Last administered on 10/11/19at 21:17; Start 08/17/19 at 05:30 Hydromorphone HCl (Dilaudid Standard PATTERNMAKER PLASTICS) 12 mg STK-MED ONCE IV ; Start 08/16/19 at 12:05; Stop 08/17/19 at 09:15; Status DC Potassium Acetate 65 meq/Magnesium Sulfate 20 meq/ Calcium Gluconate 10 meq/ Multivitamins 10 ml/Chromium/ Copper/Manganese/ Seleni/Zn 0.5 ml/ Insulin Human Regular 30 unit/ Total Parenteral Nutrition/Amino Acids/Dextrose/ Fat Emulsion Intravenous 1,920 ml @ 80 mls/hr TPN CONT IV Last administered on 08/17/19at 22:22; Start 08/17/19 at 22:00; Stop 08/18/19 at 21:59; Status DC Cyclobenzaprine HCl (Flexeril) 10 mg PRN Q6HRS PRN PO MUSCLE SPASMS Last administered on 10/28/19at 19:12; Start 08/18/19 at 10:45 Potassium Acetate 55 meq/Magnesium Sulfate 20 meq/ Calcium Gluconate 10 meq/ Multivitamins 10 ml/Chromium/ Copper/Manganese/ Seleni/Zn 0.5 ml/ Insulin Human Regular 30 unit/ Total Parenteral Nutrition/Amino Acids/Dextrose/ Fat Emulsion Intravenous 1,920 ml @ 80 mls/hr TPN CONT IV Last administered on 08/19/19at 01:00; Start 08/18/19 at 22:00; Stop 08/19/19 at 21:59; Status DC Magnesium Sulfate 50 ml @ 25 mls/hr 1X ONCE IV Last administered on 08/18/19at 17:18; Start 08/18/19 at 12:45; Stop 08/18/19 at 14:44; Status DC Potassium Chloride/Water 100 ml @ 100 mls/hr 1X ONCE IV Last administered on 08/19/19at 11:27; Start 08/19/19 at 12:00; Stop 08/19/19 at 12:59; Status DC Hydromorphone HCl (Dilaudid Standard [employer]TERNMA[employer] PLASTICS) 12 mg STK-MED ONCE IV ; Start 08/17/19 at 10:50; Stop 08/19/19 at 11:02; Status DC Hydromorphone HCl (Dilaudid Standard [employer]TERNMA[employer] PLASTICS) 12 mg STK-MED ONCE IV ; Start 08/18/19 at 13:47; Stop 08/19/19 at 11:03; Status DC Potassium Acetate 30 meq/Magnesium Sulfate 20 meq/ Calcium Gluconate 10 meq/ Multivitamins 10 ml/Chromium/ Copper/Manganese/ Seleni/Zn 0.5 ml/ Insulin Human Regular 30 unit/ Potassium Chloride 30 meq/ Total Parenteral Nutrition/Amino Acids/Dextrose/ Fat Emulsion Intravenous 1,920 ml @ 80 mls/hr TPN CONT IV Last administered on 08/19/19at 22:34; Start 08/19/19 at 22:00; Stop 08/20/19 at 21:59; Status DC Potassium Chloride/Water 100 ml @ 100 mls/hr Q1H IV Last administered on 08/20/19at 13:05; Start 08/20/19 at 07:00; Stop 08/20/19 at 10:59; Status DC Magnesium Sulfate 50 ml @ 25 mls/hr 1X ONCE IV Last administered on 08/20/19at 10:34; Start 08/20/19 at 10:30; Stop 08/20/19 at 12:29; Status DC Potassium Chloride 75 meq/ Magnesium Sulfate 20 meq/Calcium Gluconate 10 meq/ Multivitamins 10 ml/Chromium/ Copper/Manganese/ Seleni/Zn 0.5 ml/ Insulin Human Regular 30 unit/ Total Parenteral Nutrition/Amino Acids/Dextrose/ Fat Emulsion Intravenous 1,920 ml @ 80 mls/hr TPN CONT IV Last administered on 08/20/19at 21:51; Start 08/20/19 at 22:00; Stop 08/21/19 at 22:00; Status DC Potassium Chloride 75 meq/ Magnesium Sulfate 20 meq/Calcium Gluconate 10 meq/ Multivitamins 10 ml/Chromium/ Copper/Manganese/ Seleni/Zn 0.5 ml/ Insulin Human Regular 25 unit/ Total Parenteral Nutrition/Amino Acids/Dextrose/ Fat Emulsion Intravenous 1,920 ml @ 80 mls/hr TPN CONT IV Last administered on 08/21/19at 22:04; Start 08/21/19 at 22:00; Stop 08/22/19 at 21:59; Status DC Hydromorphone HCl (Dilaudid) 0.4 mg PRN Q4HRS PRN IVP PAIN Last administered on 08/22/19at 10:57; Start 08/22/19 at 09:00; Stop 08/22/19 at 18:59; Status DC Micafungin Sodium 100 mg/Dextrose 100 ml @ 100 mls/hr Q24H IV Last administered on 09/13/19at 12:17; Start 08/22/19 at 11:00; Stop 09/14/19 at 09:59; Status DC Daptomycin 485 mg/ Sodium Chloride 50 ml @ 100 mls/hr Q24H IV Last administe red on 08/29/19at 13:10; Start 08/22/19 at 11:00; Stop 08/30/19 at 07:44; Status DC Potassium Chloride 75 meq/ Magnesium Sulfate 15 meq/Calcium Gluconate 8 meq/ Multivitamins 10 ml/Chromium/ Copper/Manganese/ Seleni/Zn 0.5 ml/ Insulin Human Regular 25 unit/ Total Parenteral Nutrition/Amino Acids/Dextrose/ Fat Emulsion Intravenous 1,920 ml @ 80 mls/hr TPN CONT IV Last administered on 08/22/19at 23:08; Start 08/22/19 at 22:00; Stop 08/23/19 at 21:59; Status DC Haloperidol Lactate (Haldol Inj) 3 mg 1X ONCE IVP Last administered on 08/22/19at 14:37; Start 08/22/19 at 14:30; Stop 08/22/19 at 14:31; Status DC Hydromorphone HCl (Dilaudid) 1 mg PRN Q4HRS PRN IVP PAIN Last administered on 09/05/19at 06:25; Start 08/22/19 at 19:00; Stop 09/05/19 at 17:10; Status DC Potassium Chloride 75 meq/ Magnesium Sulfate 15 meq/Calcium Gluconate 8 meq/ Multivitamins 10 ml/Chromium/ Copper/Manganese/ Seleni/Zn 0.5 ml/ Insulin Human Regular 20 unit/ Total Parenteral Nutrition/Amino Acids/Dextrose/ Fat Emulsion Intravenous 1,920 ml @ 80 mls/hr TPN CONT IV Last administered on 08/23/19at 22:10; Start 08/23/19 at 22:00; Stop 08/24/19 at 21:59; Status DC Lidocaine HCl (Buffered Lidocaine 1%) 3 ml STK-MED ONCE .ROUTE ; Start 08/24/19 at 11:31; Stop 08/24/19 at 11:31; Status DC Lidocaine HCl (Buffered Lidocaine 1%) 3 ml STK-MED ONCE .ROUTE ; Start 08/24/19 at 12:28; Stop 08/24/19 at 12:29; Status DC Lidocaine HCl (Buffered Lidocaine 1%) 6 ml 1X ONCE INJ Last administered on 08/24/19at 12:53; Start 08/24/19 at 12:45; Stop 08/24/19 at 12:46; Status DC Potassium Chloride 75 meq/ Magnesium Sulfate 15 meq/Calcium Gluconate 8 meq/ Multivitamins 10 ml/Chromium/ Copper/Manganese/ Seleni/Zn 0.5 ml/ Insulin Human Regular 20 unit/ Total Parenteral Nutrition/Amino Acids/Dextrose/ Fat Emulsion Intravenous 1,920 ml @ 80 mls/hr TPN CONT IV Last administered on 08/24/19at 22:00; Start 08/24/19 at 22:00; Stop 08/25/19 at 21:59; Status DC Potassium Chloride 75 meq/ Magnesium Sulfate 15 meq/Calcium Gluconate 8 meq/ Multivitamins 10 ml/Chromium/ Copper/Manganese/ Seleni/Zn 0.5 ml/ Insulin Human Regular 15 unit/ Total Parenteral Nutrition/Amino Acids/Dextrose/ Fat Emulsion Intravenous 1,920 ml @ 80 mls/hr TPN CONT IV Last administered on 08/25/19at 22:28; Start 08/25/19 at 22:00; Stop 08/26/19 at 21:59; Status DC Vecuronium [place] (Norcuron Bolus) 6 mg PRN Q6HRS PRN IV VENT ASYNCHRONY; Start 08/25/19 at 19:15; Stop 08/25/19 at 19:35; Status DC Bumetanide (Bumex) 2 mg 1X ONCE IV Last administered on 08/25/19at 22:09; Start 08/25/19 at 19:45; Stop 08/25/19 at 19:46; Status DC Lidocaine HCl (Buffered Lidocaine 1%) 3 ml STK-MED ONCE .ROUTE ; Start 08/26/19 at 07:59; Stop 08/26/19 at 07:59; Status DC Midazolam HCl (Versed) 5 mg STK-MED ONCE .ROUTE ; Start 08/26/19 at 08:36; Stop 08/26/19 at 08:36; Status DC Fentanyl Citrate (Fentanyl 5ml Vial) 250 mcg STK-MED ONCE .ROUTE ; Start 08/26/19 at 08:36; Stop 08/26/19 at 08:37; Status DC Lidocaine HCl (Buffered Lidocaine 1%) 3 ml 1X ONCE IJ Last administered on 08/26/19at 09:30; Start 08/26/19 at 09:15; Stop 08/26/19 at 09:16; Status DC Midazolam HCl (Versed) 5 mg 1X ONCE IV Last administered on 08/26/19at 09:30; Start 08/26/19 at 09:15; Stop 08/26/19 at 09:16; Status DC Fentanyl Citrate (Fentanyl 5ml Vial) 250 mcg 1X ONCE IV Last administered on 08/26/19at 09:30; Start 08/26/19 at 09:15; Stop 08/26/19 at 09:16; Status DC Bumetanide (Bumex) 2 mg DAILY IV Last administered on 09/05/19at 08:07; Start 08/26/19 at 10:00; Stop 09/05/19 at 17:15; Status DC Potassium Chloride 75 meq/ Magnesium Sulfate 15 meq/ Multivitamins 10 ml/Chromium/ Copper/Manganese/ Seleni/Zn 0.5 ml/ Insulin Human Regular 15 unit/ Total Parenteral Nutrition/Amino Acids/Dextrose/ Fat Emulsion Intravenous 1,920 ml @ 80 mls/hr TPN CONT IV Last administered on 08/26/19at 21:59; Start 08/26/19 at 22:00; Stop 08/27/19 at 21:59; Status DC Metoclopramide HCl (Reglan Vial) 10 mg PRN Q3HRS PRN IVP NAUSEA/VOMITING-3rd choice Last administered on 09/01/19at 04:25; Start 08/27/19 at 16:45 Potassium Chloride 75 meq/ Magnesium Sulfate 15 meq/ Multivitamins 10 ml/Chromium/ Copper/Manganese/ Seleni/Zn 0.5 ml/ Insulin Human Regular 15 unit/ Total Parenteral Nutrition/Amino Acids/Dextrose/ Fat Emulsion Intravenous 1,920 ml @ 80 mls/hr TPN CONT IV Last administered on 08/27/19at 22:41; Start 08/27/19 at 22:00; Stop 08/28/19 at 21:59; Status DC Magnesium Sulfate 50 ml @ 25 mls/hr 1X ONCE IV Last administered on 08/28/19at 10:44; Start 08/28/19 at 09:00; Stop 08/28/19 at 10:59; Status DC Potassium Chloride/Water 100 ml @ 100 mls/hr 1X ONCE IV Last administered on 08/28/19at 09:37; Start 08/28/19 at 09:00; Stop 08/28/19 at 09:59; Status DC Duloxetine HCl (Cymbalta) 30 mg DAILY PO Last administered on 08/29/19at 09:48; Start 08/28/19 at 14:00; Stop 08/31/19 at 10:25; Status DC Potassium Chloride 80 meq/ Magnesium Sulfate 20 meq/ Multivitamins 10 m l/Chromium/ Copper/Manganese/ Seleni/Zn 0.5 ml/ Insulin Human Regular 15 unit/ Total Parenteral Nutrition/Amino Acids/Dextrose/ Fat Emulsion Intravenous 1,920 ml @ 80 mls/hr TPN CONT IV Last administered on 08/28/19at 21:42; Start 08/28/19 at 22:00; Stop 08/29/19 at 21:59; Status DC Potassium Chloride 80 meq/ Magnesium Sulfate 20 meq/ Multivitamins 10 ml/Chromium/ Copper/Manganese/ Seleni/Zn 0.5 ml/ Insulin Human Regular 15 unit/ Total Parenteral Nutrition/Amino Acids/Dextrose/ Fat Emulsion Intravenous 1,920 ml @ 80 mls/hr TPN CONT IV Last administered on 08/29/19at 22:20; Start 08/29/19 at 22:00; Stop 08/30/19 at 21:59; Status DC Lidocaine HCl (Buffered Lidocaine 1%) 3 ml STK-MED ONCE .ROUTE ; Start 08/30/19 at 09:54; Stop 08/30/19 at 09:55; Status DC Hydromorphone HCl (Dilaudid Standard [employer]) 12 mg STK-MED ONCE IV ; Start 08/19/19 at 15:50; Stop 08/30/19 at 11:24; Status DC Potassium Chloride 80 meq/ Magnesium Sulfate 20 meq/ Multivitamins 10 ml/Chromium/ Copper/Manganese/ Seleni/Zn 0.5 ml/ Insulin Human Regular 15 unit/ Total Parenteral Nutrition/Amino Acids/Dextrose/ Fat Emulsion Intravenous 1,920 ml @ 80 mls/hr TPN CONT IV Last administered on 08/30/19at 21:40; Start 08/30/19 at 22:00; Stop 08/31/19 at 21:59; Status DC Lidocaine HCl (Buffered Lidocaine 1%) 6 ml 1X ONCE INJ Last administered on 08/30/19at 14:15; Start 08/30/19 at 14:15; Stop 08/30/19 at 14:16; Status DC Potassium Chloride 80 meq/ Magnesium Sulfate 20 meq/ Multivitamins 10 ml/Chromium/ Copper/Manganese/ Seleni/Zn 1 ml/ Insulin Human Regular 15 unit/ Total Parenteral Nutrition/Amino Acids/Dextrose/ Fat Emulsion Intravenous 1,920 ml @ 80 mls/hr TPN CONT IV Last administered on 08/31/19at 22:04; Start 08/31/19 at 22:00; Stop 09/01/19 at 21:59; Status DC Potassium Chloride/Water 100 ml @ 100 mls/hr 1X ONCE IV Last administered on 09/01/19at 11:34; Start 09/01/19 at 11:00; Stop 09/01/19 at 11:59; Status DC Potassium Chloride 90 meq/ Magnesium Sulfate 20 meq/ Multivitamins 10 ml/Chromium/ Copper/Manganese/ Seleni/Zn 1 ml/ Insulin Human Regular 15 unit/ Total Parenteral Nutrition/Amino Acids/Dextrose/ Fat Emulsion Intravenous 1,920 ml @ 80 mls/hr TPN CONT IV Last administered on 09/01/19at 22:57; Start 09/01/19 at 22:00; Stop 09/02/19 at 21:59; Status DC Potassium Chloride 90 meq/ Magnesium Sulfate 20 meq/ Multivitamins 10 ml/Chromium/ Copper/Manganese/ Seleni/Zn 1 ml/ Insulin Human Regular 15 unit/ Total Parenteral Nutrition/Amino Acids/Dextrose/ Fat Emulsion Intravenous 1,920 ml @ 80 mls/hr TPN CONT IV Last administered on 09/02/19at 22:48; Start 09/02/19 at 22:00; Stop 09/03/19 at 21:59; Status DC Potassium Chloride 90 meq/ Magnesium Sulfate 20 meq/ Multivitamins 10 ml/Chromium/ Copper/Manganese/ Seleni/Zn 1 ml/ Insulin Human Regular 15 unit/ Total Parenteral Nutrition/Amino Acids/Dextrose/ Fat Emulsion Intravenous 1,890 ml @ 78.75 mls/ hr TPN CONT IV Last administered on 09/03/19at 22:15; Start 09/03/19 at 22:00; Stop 09/04/19 at 21:59; Status DC Linezolid/Dextrose 300 ml @ 300 mls/hr Q12HR IV Last administered on 09/06/19at 21:08; Start 09/04/19 at 09:00; Stop 09/07/19 at 08:11; Status DC Daptomycin 450 mg/ Sodium Chloride 50 ml @ 100 mls/hr Q24H IV Last administered on 09/07/19at 09:25; Start 09/04/19 at 09:00; Stop 09/08/19 at 08:30; Status DC Potassium Chloride 90 meq/ Magnesium Sulfate 20 meq/ Multivitamins 10 ml/Chromium/ Copper/Manganese/ Seleni/Zn 1 ml/ Insulin Human Regular 15 unit/ Total Parenteral Nutrition/Amino Acids/Dextrose/ Fat Emulsion Intravenous 1,890 ml @ 78.75 mls/ hr TPN CONT IV Last administered on 09/04/19at 21:34; Start 09/04/19 at 22:00; Stop 09/05/19 at 21:59; Status DC Lorazepam (Ativan Inj) 2 mg STK-MED ONCE .ROUTE ; Start 09/04/19 at 14:58; Stop 09/04/19 at 14:58; Status DC Metoprolol Tartrate (Lopressor Vial) 5 mg 1X ONCE IVP Last administered on 09/04/19at 15:31; Start 09/04/19 at 15:15; Stop 09/04/19 at 15:16; Status DC Lorazepam (Ativan Inj) 2 mg 1X ONCE IVP Last administered on 09/04/19at 15:30; Start 09/04/19 at 15:15; Stop 09/04/19 at 15:16; Status DC Enoxaparin Sodium (Lovenox 40mg Syringe) 40 mg Q24H SQ Last administered on 09/23/19at 17:44; Start 09/04/19 at 17:00; Stop 09/25/19 at 06:50; Status DC Lorazepam (Ativan Inj) 1 mg PRN Q4HRS PRN IVP ANXIETY / AGITATION MILD-MOD Last administered on 09/18/19at 15:55; Start 09/04/19 at 19:15; Stop 09/20/19 at 11:45; Status DC Lorazepam (Ativan Inj) 2 mg PRN Q4HRS PRN IVP ANXIETY / AGITATION SEVERE Last administered on 09/19/19at 07:55; Start 09/04/19 at 19:15; Stop 09/20/19 at 11:45; Status DC Fentanyl Citrate (Fentanyl 2ml Vial) 50 mcg PRN Q4HRS PRN IVP SEVERE PAIN Last administered on 10/01/19at 05:15; Start 09/05/19 at 13:15; Stop 10/02/19 at 09:29; Status DC Fentanyl Citrate (Fentanyl 2ml Vial) 25 mcg PRN Q4HRS PRN IVP MODERATE PAIN Last administered on 10/01/19at 00:27; Start 09/05/19 at 13:15; Stop 10/02/19 at 09:30; Status DC Potassium Chloride 90 meq/ Magnesium Sulfate 20 meq/ Multivitamins 10 ml/Chromium/ Copper/Manganese/ Seleni/Zn 1 ml/ Insulin Human Regular 15 unit/ Total Parenteral Nutrition/Amino Acids/Dextrose/ Fat Emulsion Intravenous 1,890 ml @ 78.75 mls/ hr TPN CONT IV Last administered on 09/05/19at 22:18; Start 09/05/19 at 22:00; Stop 09/06/19 at 21:59; Status DC Furosemide (Lasix) 40 mg 1X ONCE IVP Last administered on 09/05/19at 21:51; Start 09/05/19 at 21:45; Stop 09/05/19 at 21:48; Status DC Albumin Human 100 ml @ 100 mls/hr 1X PRN PRN IV SEE COMMENTS; Start 09/06/19 at 01:30 Furosemide (Lasix) 40 mg [id number] IVP Last administered on 09/21/19at 08:04; Start 09/06/19 at 14:00; Stop 09/21/19 at 13:07; Status DC Potassium Chloride 90 meq/ Magnesium Sulfate 20 meq/ Multivitamins 10 ml/Chromium/ Copper/Manganese/ Seleni/Zn 1 ml/ Insulin Human Regular 15 unit/ Total Parenteral Nutrition/Amino Acids/Dextrose/ Fat Emulsion Intravenous 1,800 ml @ 75 mls/hr TPN CONT IV Last administered on 09/06/19at 22:31; Start 09/06/19 at 22:00; Stop 09/07/19 at 21:59; Status DC Potassium Chloride 90 meq/ Magnesium Sulfate 20 meq/ Multivitamins 10 ml/Chromium/ Copper/Manganese/ Seleni/Zn 1 ml/ Insulin Human Regular 15 unit/ Total Parenteral Nutrition/Amino Acids/Dextrose/ Fat Emulsion Intravenous 1,800 ml @ 75 mls/hr TPN CONT IV Last administered on 09/07/19at 22:28; Start 09/07/19 at 22:00; Stop 09/08/19 at 21:59; Status DC Potassium Chloride 110 meq/ Magnesium Sulfate 20 meq/ Multivitamins 10 ml/Chromium/ Copper/Manganese/ Seleni/Zn 1 ml/ Insulin Human Regular 15 unit/ Total Parenteral Nutrition/Amino Acids/Dextrose/ Fat Emulsion Intravenous 1,800 ml @ 75 mls/hr TPN CONT IV Last administered on 09/08/19at 22:01; Start 09/08/19 at 22:00; Stop 09/09/19 at 21:59; Status DC Saliva Substitute (Biotene Moisturizing Mouth) 2 spray PRN Q15MIN PRN PO DRY MOUTH; Start 09/08/19 at 11:00 Potassium Chloride 110 meq/ Magnesium Sulfate 20 meq/ Multivitamins 10 ml/Chromium/ Copper/Manganese/ Seleni/Zn 1 ml/ Insulin Human Regular 15 unit/ Total Parenteral Nutrition/Amino Acids/Dextrose/ Fat Emulsion Intravenous 1,800 ml @ 75 mls/hr TPN CONT IV Last administered on 09/09/19at 22:21; Start 09/09/19 at 22:00; Stop 09/10/19 at 21:59; Status DC Potassium Chloride 110 meq/ Magnesium Sulfate 20 meq/ Multivitamins 10 ml/Chromium/ Copper/Manganese/ Seleni/Zn 1 ml/ Insulin Human Regular 15 unit/ Total Parenteral Nutrition/Amino Acids/Dextrose/ Fat Emulsion Intravenous 1,800 ml @ 75 mls/hr TPN CONT IV Last administered on 09/10/19at 22:04; Start 09/10/19 at 22:00; Stop 09/11/19 at 21:59; Status DC Potassium Chloride 110 meq/ Magnesium Sulfate 20 meq/ Multivitamins 10 ml/Chromium/ Copper/Manganese/ Seleni/Zn 1 ml/ Insulin Human Regular 15 unit/ Total Parenteral Nutrition/Amino Acids/Dextrose/ Fat Emulsion Intravenous 1,800 ml @ 75 mls/hr TPN CONT IV Last administered on 09/11/19at 22:48; Start 09/11/19 at 22:00; Stop 09/12/19 at 21:59; Status DC Potassium Chloride 70 meq/ Magnesium Sulfate 20 meq/ Multivitamins 10 ml/Chromium/ Copper/Manganese/ Seleni/Zn 1 ml/ Insulin Human Regular 15 unit/ Total Parenteral Nutrition/Amino Acids/Dextrose/ Fat Emulsion Intravenous 1,800 ml @ 75 mls/hr TPN CONT IV Last administered on 09/12/19at 21:39; Start 09/12/19 at 22:00; Stop 09/13/19 at 21:59; Status DC Meropenem 500 mg/ Sodium Chloride 50 ml @ 100 mls/hr Q6HRS IV Last administered on 09/14/19at 06:02; Start 09/12/19 at 18:00; Stop 09/14/19 at 09:59; Status DC Barium Sulfate (Varibar Thin Liquid [place]) 148 gm 1X ONCE PO ; Start 09/13/19 at 11:45; Stop 09/13/19 at 11:49; Status DC Potassium Chloride 70 meq/ Magnesium Sulfate 20 meq/ Multivitamins 10 ml/Chromium/ Copper/Manganese/ Seleni/Zn 1 ml/ Insulin Human Regular 15 unit/ Total Parenteral Nutrition/Amino Acids/Dextrose/ Fat Emulsion Intravenous 1,800 ml @ 75 mls/hr TPN CONT IV Last administered on 09/13/19at 22:27; Start 09/13/19 at 22:00; Stop 09/14/19 at 21:59; Status DC Piperacillin Sod/ Tazobactam Sod 3.375 gm/Sodium Chloride 50 ml @ 100 mls/hr Q6HRS IV Last administered on 09/22/19at 06:10; Start 09/14/19 at 12:00; Stop 09/22/19 at 07:26; Status DC Potassium Chloride 70 meq/ Magnesium Sulfate 20 meq/ Multivitamins 10 ml/Chromium/ Copper/Manganese/ Seleni/Zn 1 ml/ Insulin Human Regular 15 unit/ Total Parenteral Nutrition/Amino Acids/Dextrose/ Fat Emulsion Intravenous 1,800 ml @ 75 mls/hr TPN CONT IV Last administered on 09/14/19at 22:03; Start 09/14/19 at 22:00; Stop 09/15/19 at 21:59; Status DC Potassium Chloride 70 meq/ Magnesium Sulfate 20 meq/ Multivitamins 10 ml/Chromium/ Copper/Manganese/ Seleni/Zn 1 ml/ Insulin Human Regular 15 unit/ Total Parenteral Nutrition/Amino Acids/Dextrose/ Fat Emulsion Intravenous 1,800 ml @ 75 mls/hr TPN CONT IV Last administered on 09/15/19at 22:33; Start 09/15/19 at 22:00; Stop 09/16/19 at 21:59; Status DC Potassium Chloride 70 meq/ Magnesium Sulfate 20 meq/ Multivitamins 10 ml/Chromium/ Copper/Manganese/ Seleni/Zn 1 ml/ Insulin Human Regular 15 unit/ Total Parenteral Nutrition/Amino Acids/Dextrose/ Fat Emulsion Intravenous 1,800 ml @ 75 mls/hr TPN CONT IV Last administered on 09/16/19at 23:13; Start 09/16/19 at 22:00; Stop 09/17/19 at 21:59; Status DC Potassium Chloride 80 meq/ Magnesium Sulfate 20 meq/ Multivitamins 10 ml/Chromium/ Copper/Manganese/ Seleni/Zn 1 ml/ Insulin Human Regular 15 unit/ Total Parenteral Nutrition/Amino Acids/Dextrose/ Fat Emulsion Intravenous 1,800 ml @ 75 mls/hr TPN CONT IV Last administered on 09/17/19at 22:30; Start 09/17/19 at 22:00; Stop 09/18/19 at 21:59; Status DC Potassium Chloride 80 meq/ Magnesium Sulfate 20 meq/ Multivitamins 10 ml/Chromium/ Copper/Manganese/ Seleni/Zn 1 ml/ Insulin Human Regular 15 unit/ Total Parenteral Nutrition/Amino Acids/Dextrose/ Fat Emulsion Intravenous 1,800 ml @ 75 mls/hr TPN CONT IV Last administered on 09/18/19at 21:54; Start 09/18/19 at 22:00; Stop 09/19/19 at 21:59; Status DC Potassium Chloride/Water 100 ml @ 100 mls/hr 1X ONCE IV Last administered on 09/19/19at 10:15; Start 09/19/19 at 10:00; Stop 09/19/19 at 10:59; Status DC Potassium Chloride 90 meq/ Magnesium Sulfate 20 meq/ Multivitamins 10 ml/Chromium/ Copper/Manganese/ Seleni/Zn 1 ml/ Insulin Human Regular 20 unit/ Total Parenteral Nutrition/Amino Acids/Dextrose/ Fat Emulsion Intravenous 1,800 ml @ 75 mls/hr TPN CONT IV Last administered on 09/19/19at 22:28; Start 09/19/19 at 22:00; Stop 09/20/19 at 21:59; Status DC Potassium Chloride 90 meq/ Magnesium Sulfate 20 meq/ Multivitamins 10 ml/Chromium/ Copper/Manganese/ Seleni/Zn 1 ml/ Insulin Human Regular 20 unit/ Total Parenteral Nutrition/Amino Acids/Dextrose/ Fat Emulsion Intravenous 1,800 ml @ 75 mls/hr TPN CONT IV Last administered on 09/20/19at 22:08; Start 09/20/19 at 22:00; Stop 09/21/19 at 21:59; Status DC Lorazepam (Ativan Inj) 0.25 mg PRN Q4HRS PRN IVP ANXIETY / AGITATION Last admi nistered on 10/30/19at 00:27; Start 09/21/19 at 07:30 Potassium Chloride 90 meq/ Magnesium Sulfate 20 meq/ Multivitamins 10 ml/Chr omium/ Copper/Manganese/ Seleni/Zn 1 ml/ Insulin Human Regular 20 unit/ Total Parenteral Nutrition/Amino Acids/Dextrose/ Fat Emulsion Intravenous 1,800 ml @ 75 mls/hr TPN CONT IV Last administered on 09/21/19at 23:13; Start 09/21/19 at 22:00; Stop 09/22/19 at 21:59; Status DC Furosemide (Lasix) 40 mg DAILY IVP Last administered on 09/23/19at 11:14; Start 09/21/19 at 13:30; Stop 09/25/19 at 09:12; Status DC Fluoxetine HCl (PROzac) 20 mg QHS PEG Last administered on 10/29/19at 21:27; Start 09/22/19 at 21:00 Fentanyl (Duragesic 50mcg/ Hr Patch) 1 patch Q72H TD Last administered on 09/22/19at 21:22; Start 09/22/19 at 21:00; Stop 10/01/19 at 12:00; Status DC Potassium Chloride 40 meq/ Potassium Acetate 60 meq/Magnesium Sulfate 10 meq/ Multivitamins 10 ml/Chromium/ Copper/Manganese/ Seleni/Zn 1 ml/ Insulin Human Regular 20 unit/ Total Parenteral Nutrition/Amino Acids/Dextrose/ Fat Emulsion Intravenous 1,800 ml @ 75 mls/hr TPN CONT IV Last administered on 09/23/19at 00:03; Start 09/22/19 at 22:00; Stop 09/23/19 at 21:59; Status DC Potassium Acetate 80 meq/Magnesium Sulfate 5 meq/ Multivitamins 10 ml/Chromium/ Copper/Manganese/ Seleni/Zn 1 ml/ Insulin Human Regular 20 unit/ Total Parenteral Nutrition/Amino Acids/Dextrose/ Fat Emulsion Intravenous 1,920 ml @ 80 mls/hr TPN CONT IV Last administered on 09/23/19at 21:59; Start 09/23/19 at 22:00; Stop 09/24/19 at 21:59; Status DC Potassium Acetate 60 meq/Magnesium Sulfate 5 meq/ Multivitamins 10 ml/Chromium/ Copper/Manganese/ Seleni/Zn 1 ml/ Insulin Human Regular 30 unit/ Total Parenteral Nutrition/Amino Acids/Dextrose/ Fat Emulsion Intravenous 1,920 ml @ 80 mls/hr TPN CONT IV Last administered on 09/24/19at 21:54; Start 09/24/19 at 22:00; Stop 09/25/19 at 21:59; Status DC Norepinephrine Bitartrate 8 mg/ Dextrose 258 ml @ 13.332 mls/ hr CONT PRN IV PER PROTOCOL Last administered on 10/20/19at 09:09; Start 09/25/19 at 06:30 Albumin Human 500 ml @ 125 mls/hr 1X ONCE IV Last administered on 09/25/19at 08:10; Start 09/25/19 at 08:15; Stop 09/25/19 at 12:14; Status DC Potassium Acetate 40 meq/Magnesium Sulfate 5 meq/ Multivitamins 10 ml/Chromium/ Copper/Manganese/ Seleni/Zn 1 ml/ Insulin Human Regular 30 unit/ Total Parenteral Nutrition/Amino Acids/Dextrose/ Fat Emulsion Intravenous 1,920 ml @ 80 mls/hr TPN CONT IV Last administered on 09/25/19at 22:23; Start 09/25/19 at 22:00; Stop 09/26/19 at 21:59; Status DC Meropenem 1 gm/ Sodium Chloride 100 ml @ 200 mls/hr Q8HRS IV ; Start 09/25/19 at 14:00; Status Cancel Meropenem 1 gm/ Sodium Chloride 100 ml @ 200 mls/hr Q8HRS IV Last administered on 09/25/19at 11:04; Start 09/25/19 at 10:00; Stop 09/25/19 at 13:00; Status DC Meropenem 1 gm/ Sodium Chloride 100 ml @ 200 mls/hr Q12HR IV Last administered on 10/13/19at 08:27; Start 09/25/19 at 21:00; Stop 10/13/19 at 08:56; Status DC Sodium Chloride 1,000 ml @ 1,000 mls/hr 1X ONCE IV Last administered on 09/25/19at 11:06; Start 09/25/19 at 10:45; Stop 09/25/19 at 11:44; Status DC Micafungin Sodium 100 mg/Dextrose 100 ml @ 100 mls/hr Q24H IV Last administered on 10/12/19at 12:34; Start 09/25/19 at 11:00; Stop 10/13/19 at 08:56; Status DC Daptomycin 410 mg/ Sodium Chloride 50 ml @ 100 mls/hr Q24H IV Last administered on 09/27/19at 13:33; Start 09/25/19 at 14:00; Stop 09/28/19 at 08:30; Status DC Midazolam HCl (Versed) 2 mg STK-MED ONCE .ROUTE ; Start 09/25/19 at 14:47; Stop 09/25/19 at 14:48; Status DC Fentanyl Citrate (Fentanyl 2ml Vial) 100 mcg STK-MED ONCE .ROUTE ; Start 09/25/19 at 14:47; Stop 09/25/19 at 14:48; Status DC Flumazenil (Romazicon) 0.5 mg STK-MED ONCE IV ; Start 09/25/19 at 14:48; Stop at 14:48; Status DC Naloxone HCl (Narcan) 0.4 mg STK-MED ONCE .ROUTE ; Start 09/25/19 at 14:48; Stop 09/25/19 at 14:48; Status DC Lidocaine HCl (Lidocaine 1% 20ml Vial) 20 ml STK-MED ONCE .ROUTE ; Start 09/25/19 at 14:48; Stop 09/25/19 at 14:48; Status DC Midazolam HCl (Versed) 2 mg 1X ONCE IV Last administered on 09/25/19at 15:28; Start 09/25/19 at 15:00; Stop 09/25/19 at 15:01; Status DC Fentanyl Citrate (Fentanyl 2ml Vial) 100 mcg 1X ONCE IV Last administered on 09/25/19at 15:28; Start 09/25/19 at 15:00; Stop 09/25/19 at 15:01; Status DC Lidocaine HCl (Lidocaine 1% 20ml Vial) 20 ml 1X ONCE INJ Last administered on 09/25/19at 15:30; Start 09/25/19 at 15:00; Stop 09/25/19 at 15:01; Status DC Sodium Chloride 1,000 ml @ 100 mls/hr Q10H IV Last administered on 10/04/19at 07:30; Start 09/25/19 at 20:00; Stop 10/04/19 at 11:26; Status DC Sodium Bicarbonate (Sodium Bicarb Adult 8.4% Syr) 50 meq 1X ONCE IV Last administered on 09/25/19at 21:47; Start 09/25/19 at 22:00; Stop 09/25/19 at 22:01; Status DC Potassium Acetate 40 meq/Magnesium Sulfate 5 meq/ Multivitamins 10 ml/Chromium/ Copper/Manganese/ Seleni/Zn 1 ml/ Insulin Human Regular 30 unit/ Total Parenteral Nutrition/Amino Acids/Dextrose/ Fat Emulsion Intravenous 1,920 ml @ 80 mls/hr TPN CONT IV Last administered on 09/26/19at 22:28; Start 09/26/19 at 22:00; Stop 09/27/19 at 21:59; Status DC Sodium Chloride 500 ml @ 500 mls/hr 1X ONCE IV Last administered on 09/27/19at 06:39; Start 09/27/19 at 06:45; Stop 09/27/19 at 07:44; Status DC Potassium Acetate 40 meq/Magnesium Sulfate 5 meq/ Multivitamins 10 ml/Chromium/ Copper/Manganese/ Seleni/Zn 1 ml/ Insulin Human Regular 30 unit/ Total Pare nteral Nutrition/Amino Acids/Dextrose/ Fat Emulsion Intravenous 1,920 ml @ 80 mls/hr TPN CONT IV Last administered on 09/27/19at 22:03; Start 09/27/19 at 22:00; Stop 09/28/19 at 21:59; Status DC Metoprolol Tartrate (Lopressor Vial) 5 mg PRN Q6HRS PRN IVP HYPERTENSION Last administered on 10/30/19at 08:21; Start 09/28/19 at 09:00 Potassium Acetate 40 meq/Magnesium Sulfate 5 meq/ Multivitamins 10 ml/Chromium/ Copper/Manganese/ Seleni/Zn 1 ml/ Insulin Human Regular 30 unit/ Total Parenteral Nutrition/Amino Acids/Dextrose/ Fat Emulsion Intravenous 1,920 ml @ 80 mls/hr TPN CONT IV Last administered on 09/28/19at 21:26; Start 09/28/19 at 22:00; Stop 09/29/19 at 21:59; Status DC Potassium Acetate 40 meq/Magnesium Sulfate 5 meq/ Multivitamins 10 ml/Chromium/ Copper/Manganese/ Seleni/Zn 1 ml/ Insulin Human Regular 30 unit/ Total Parenteral Nutrition/Amino Acids/Dextrose/ Fat Emulsion Intravenous 1,920 ml @ 80 mls/hr TPN CONT IV Last administered on 09/29/19at 23:23; Start 09/29/19 at 22:00; Stop 09/30/19 at 21:59; Status DC Potassium Acetate 40 meq/Magnesium Sulfate 5 meq/ Multivitamins 10 ml/Chromium/ Copper/Manganese/ Seleni/Zn 1 ml/ Insulin Human Regular 30 unit/ Total Parenteral Nutrition/Amino Acids/Dextrose/ Fat Emulsion Intravenous 1,920 ml @ 80 mls/hr TPN CONT IV Last administered on 09/30/19at 21:35; Start 09/30/19 at 22:00; Stop 10/01/19 at 21:59; Status DC Furosemide (Lasix) 20 mg 1X ONCE IVP Last administered on 10/01/19at 06:26; Start 10/01/19 at 06:15; Stop 10/01/19 at 06:16; Status DC Methylprednisolone Sodium Succinate (SOLU-Medrol 125MG VIAL) 125 mg 1X ONCE IV Last administered on 10/01/19at 06:26; Start 10/01/19 at 06:15; Stop 10/01/19 at 06:16; Status DC Albuterol/ Ipratropium (Duoneb) 3 ml Q4HRS NEB Last administered on 10/30/19at 12:00; Start 10/01/19 at 08:00 Fentanyl Citrate 30 ml @ 0 mls/hr CONT PRN IV SEE PROTOCOL Last administered on 10/22/19at 08:03; Start 10/01/19 at 06:00; Stop 10/22/19 at 12:42; Status DC Propofol 100 ml @ 0 mls/hr CONT PRN IV SEE PROTOCOL Last administered on at 23:50; Start 10/01/19 at 06:00 Fentanyl Citrate (Fentanyl 2ml Vial) 25 mcg PRN Q1HR PRN IV SEE COMMENTS Last administered on 10/29/19at 14:09; Start 10/01/19 at 06:00 Fentanyl Citrate (Fentanyl 2ml Vial) 50 mcg PRN Q1HR PRN IV SEE COMMENTS Last a dministered on 10/30/19at 12:42; Start 10/01/19 at 06:00 Chlorhexidine Gluconate (Peridex) 15 ml BID MM ; Start 10/01/19 at 09:00; Stop 10/01/19 at 07:58; Status DC Potassium Acetate 40 meq/Magnesium Sulfate 5 meq/ Multivitamins 10 ml/Chromium/ Copper/Manganese/ Seleni/Zn 1 ml/ Insulin Human Regular 30 unit/ Total Parenteral Nutrition/Amino Acids/Dextrose/ Fat Emulsion Intravenous 1,920 ml @ 80 mls/hr TPN CONT IV Last administered on 10/01/19at 21:19; Start 10/01/19 at 22:00; Stop 10/02/19 at 21:59; Status DC Acetylcysteine (Mucomyst 20% Resp Treatment) 600 mg BID NEB Last administered on 10/07/19at 09:33; Start 10/01/19 at 21:00; Stop 10/07/19 at 10:39; Status DC Magnesium Sulfate 100 ml @ 25 mls/hr 1X ONCE IV Last administered on 10/01/19at 15:48; Start 10/01/19 at 15:45; Stop 10/01/19 at 19:44; Status DC Potassium Acetate 40 meq/Magnesium Sulfate 5 meq/ Multivitamins 10 ml/Chromium/ Copper/Manganese/ Seleni/Zn 1 ml/ Insulin Human Regular 30 unit/ Total Parenteral Nutrition/Amino Acids/Dextrose/ Fat Emulsion Intravenous 1,920 ml @ 80 mls/hr TPN CONT IV Last administered on 10/02/19at 21:35; Start 10/02/19 at 22:00; Stop 10/03/19 at 21:59; Status DC Potassium Chloride/Water 100 ml @ 100 mls/hr Q1H IV Last administered on 10/03/19at 08:31; Start 10/03/19 at 07:00; Stop 10/03/19 at 08:59; Status DC Potassium Acetate 40 meq/Magnesium Sulfate 5 meq/ Multivitamins 10 ml/Chromium/ Copper/Manganese/ Seleni/Zn 1 ml/ Insulin Human Regular 30 unit/ Total Parenteral Nutrition/Amino Acids/Dextrose/ Fat Emulsion Intravenous 1,920 ml @ 80 mls/hr TPN CONT IV Last administered on 10/03/19at 21:54; Start 10/03/19 at 22:00; Stop 10/04/19 at 19:34; Status DC Lidocaine HCl (Buffered Lidocaine 1%) 3 ml STK-MED ONCE .ROUTE ; Start 10/03/19 at 12:14; Stop 10/03/19 at 12:14; Status DC Lidocaine HCl (Buffered Lidocaine 1%) 3 ml 1X ONCE IJ Last administered on 10/03/19at 13:11; Start 10/03/19 at 13:00; Stop 10/03/19 at 13:01; Status DC Magnesium Sulfate 50 ml @ 25 mls/hr 1X ONCE IV ; Start 10/04/19 at 08:15; Stop 10/04/19 at 10:14; Status DC Potassium Acetate 40 meq/Magnesium Sulfate 10 meq/ Multivitamins 10 ml/Chromium/ Copper/Manganese/ Seleni/Zn 1 ml/ Insulin Human Regular 20 unit/ Total Parenteral Nutrition/Amino Acids/Dextrose/ Fat Emulsion Intravenous 1,920 ml @ 80 mls/hr TPN CONT IV Last administered on 10/04/19at 21:32; Start 10/04/19 at 22:00; Stop 10/05/19 at 21:59; Status DC Potassium Chloride/Water 100 ml @ 100 mls/hr Q1H IV Last administered on 10/05/19at 09:12; Start 10/05/19 at 08:00; Stop 10/05/19 at 09:59; Status DC Alteplase, Recombinant (Cathflo For Central Catheter Clearance) 4 mg 1X ONCE INT CAT ; Start 10/05/19 at 09:15; Stop 10/05/19 at 09:16; Status UNV Alteplase, Recombinant (Cathflo For Central Catheter Clearance) 4 mg 1X ONCE INT CAT ; Start 10/05/19 at 09:15; Stop 10/05/19 at 09:16; Status UNV Alteplase, Recombinant (Cathflo For Central Catheter Clearance) 4 mg 1X ONCE INT CAT ; Start 10/05/19 at 09:15; Stop 10/05/19 at 09:16; Status UNV Alteplase, Recombinant 4 mg/ Sodium Chloride 20 ml @ 20 mls/hr 1X ONCE IV Last administered on 10/05/19at 10:10; Start 10/05/19 at 10:00; Stop 10/05/19 at 10:59; Status DC Alteplase, Recombinant 4 mg/ Sodium Chloride 20 ml @ 20 mls/hr 1X ONCE IV Last administered on 10/05/19at 10:09; Start 10/05/19 at 10:00; Stop 10/05/19 at 10:59; Status DC Alteplase, Recombinant 4 mg/ Sodium Chloride 20 ml @ 20 mls/hr 1X ONCE IV Last administered on 10/05/19at 10:09; Start 10/05/19 at 10:00; Stop 10/05/19 at 10:59; Status DC Potassium Acetate 60 meq/Magnesium Sulfate 10 meq/ Multivitamins 10 ml/Chromium/ Copper/Manganese/ Seleni/Zn 1 ml/ Insulin Human Regular 20 unit/ Total Parenteral Nutrition/Amino Acids/Dextrose/ Fat Emulsion Intravenous 1,920 ml @ 80 mls/hr TPN CONT IV Last administered on 10/05/19at 21:55; Start 10/05/19 at 22:00; Stop 10/06/19 at 21:59; Status DC Albumin Human 500 ml @ 125 mls/hr 1X ONCE IV Last administered on 10/06/19at 12:01; Start 10/06/19 at 11:15; Stop 10/06/19 at 15:14; Status DC Sodium Chloride 500 ml @ 500 mls/hr 1X ONCE IV Last administered on 10/06/19at 13:50; Start 10/06/19 at 11:15; Stop 10/06/19 at 12:14; Status DC Potassium Acetate 60 meq/Magnesium Sulfate 14 meq/ Multivitamins 10 ml/Chromium/ Copper/Manganese/ Seleni/Zn 1 ml/ Insulin Human Regular 20 unit/ Total Pare nteral Nutrition/Amino Acids/Dextrose/ Fat Emulsion Intravenous 1,920 ml @ 80 mls/hr TPN CONT IV Last administered on 10/06/19at 22:26; Start 10/06/19 at 22:00; Stop 10/07/19 at 21:59; Status DC Ciprofloxacin/ Dextrose 200 ml @ 200 mls/hr Q12HR IV Last administered on 10/13/19at 08:27; Start 10/06/19 at 21:00; Stop 10/13/19 at 08:56; Status DC Albumin Human 250 ml @ 62.5 mls/hr 1X ONCE IV Last administered on 10/07/19at 11:09; Start 10/07/19 at 11:00; Stop 10/07/19 at 14:59; Status DC Furosemide (Lasix) 20 mg 1X ONCE IVP Last administered on 10/07/19at 14:52; Start 10/07/19 at 10:45; Stop 10/07/19 at 10:49; Status DC Potassium Acetate 60 meq/Magnesium Sulfate 14 meq/ Multivitamins 10 ml/Chromium/ Copper/Manganese/ Seleni/Zn 1 ml/ Insulin Human Regular 15 unit/ Total Parenteral Nutrition/Amino Acids/Dextrose/ Fat Emulsion Intravenous 1,920 ml @ 80 mls/hr TPN CONT IV Last administered on 10/07/19at 22:08; Start 10/07/19 at 22:00; Stop 10/08/19 at 21:59; Status DC Potassium Acetate 60 meq/Magnesium Sulfate 14 meq/ Multivitamins 10 ml/Chromium/ Copper/Manganese/ Seleni/Zn 1 ml/ Insulin Human Regular 15 unit/ Total Parenteral Nutrition/Amino Acids/Dextrose/ Fat Emulsion Intravenous 1,920 ml @ 80 mls/hr TPN CONT IV Last administered on 10/08/19at 22:12; Start 10/08/19 at 22:00; Stop 10/09/19 at 21:59; Status DC Potassium Acetate 60 meq/Magnesium Sulfate 14 meq/ Multivitamins 10 ml/Chromium/ Copper/Manganese/ Seleni/Zn 1 ml/ Insulin Human Regular 15 unit/ Total Parenteral Nutrition/Amino Acids/Dextrose/ Fat Emulsion Intravenous 1,920 ml @ 80 mls/hr TPN CONT IV Last administered on 10/09/19at 22:22; Start 10/09/19 at 22:00; Stop 10/10/19 at 21:59; Status DC Furosemide (Lasix) 20 mg 1X ONCE IVP Last administered on 10/10/19at 11:07; Start 10/10/19 at 10:30; Stop 10/10/19 at 10:34; Status DC Potassium Acetate 60 meq/Magnesium Sulfate 14 meq/ Multivitamins 10 ml/Chromium/ Copper/Manganese/ Seleni/Zn 1 ml/ Insulin Human Regular 15 unit/ Sodium Chloride 20 meq/Total Parenteral Nutrition/Amino Acids/Dextrose/ Fat Emulsion Intravenous 1,920 ml @ 80 mls/hr TPN CONT IV Last administered on 10/10/19at 21:54; Start 10/10/19 at 22:00; Stop 10/11/19 at 21:59; Status DC Potassium Acetate 30 meq/Magnesium Sulfate 14 meq/ Multivitamins 10 ml/Chromium/ Copper/Manganese/ Seleni/Zn 1 ml/ Insulin Human Regular 15 unit/ Sodium Chloride 20 meq/Potassium Chloride 30 meq/ Total Parenteral Nutrition/Amino Acids/Dextrose/ Fat Emulsion Intravenous 1,920 ml @ 80 mls/hr TPN CONT IV Last administered on 10/11/19at 21:46; Start 10/11/19 at 22:00; Stop 10/12/19 at 21:59; Status DC Sodium Chloride 80 meq/Potassium Chloride 30 meq/ Potassium Acetate 30 me q/Magnesium Sulfate 14 meq/ Multivitamins 10 ml/Chromium/ Copper/Manganese/ Seleni/Zn 1 ml/ Insulin Human Regular 15 unit/ Total Parenteral Nutrition/Amino Acids/Dextrose/ Fat Emulsion Intravenous 1,920 ml @ 80 mls/hr TPN CONT IV Last administered on 10/12/19at 22:33; Start 10/12/19 at 22:00; Stop 10/13/19 at 21:59; Status DC Furosemide (Lasix) 40 mg 1X ONCE IVP Last administered on 10/12/19at 16:27; Start 10/12/19 at 15:30; Stop 10/12/19 at 15:33; Status DC Albumin Human 250 ml @ 62.5 mls/hr 1X ONCE IV Last administered on 10/12/19at 16:27; Start 10/12/19 at 15:30; Stop 10/12/19 at 19:29; Status DC Sodium Chloride 80 meq/Potassium Chloride 30 meq/ Potassium Acetate 30 meq/Magnesium Sulfate 14 meq/ Multivitamins 10 ml/Chromium/ Copper/Manganese/ Seleni/Zn 1 ml/ Insulin Human Regular 15 unit/ Total Parenteral Nutrition/Amino Acids/Dextrose/ Fat Emulsion Intravenous 1,920 ml @ 80 mls/hr TPN CONT IV Last administered on 10/13/19at 22:25; Start 10/13/19 at 22:00; Stop 10/14/19 at 21:59; Status DC Sodium Chloride 80 meq/Potassium Chloride 30 meq/ Potassium Acetate 30 meq/Magnesium Sulfate 14 meq/ Multivitamins 10 ml/Chromium/ Copper/Manganese/ Seleni/Zn 1 ml/ Insulin Human Regular 15 unit/ Total Parenteral Nutrition/Amino Acids/Dextrose/ Fat Emulsion Intravenous 1,920 ml @ 80 mls/hr TPN CONT IV Last administered on 10/14/19at 21:32; Start 10/14/19 at 22:00; Stop 10/15/19 at 21:59; Status DC Sodium Chloride 80 meq/Potassium Chloride 30 meq/ Potassium Acetate 30 meq/Magnesium Sulfate 14 meq/ Multivitamins 10 ml/Chromium/ Copper/Manganese/ Seleni/Zn 1 ml/ Insulin Human Regular 15 unit/ Total Parenteral Nutrition/Amino Acids/Dextrose/ Fat Emulsion Intravenous 1,920 ml @ 80 mls/hr TPN CONT IV Last administered on 10/15/19at 21:53; Start 10/15/19 at 22:00; Stop 10/16/19 at 21:59; Status DC Acetylcysteine (Mucomyst 20% Resp Treatment) 600 mg RTBID NEB Last administered on 10/30/19at 08:00; Start 10/15/19 at 12:00 Sodium Chloride 80 meq/Potassium Chloride 30 meq/ Potassium Acetate 30 meq/Magnesium Sulfate 14 meq/ Multivitamins 10 ml/Chromium/ Copper/Manganese/ Seleni/Zn 1 ml/ Insulin Human Regular 15 unit/ Total Parenteral Nutrition/Amino Acids/Dextrose/ Fat Emulsion Intravenous 1,920 ml @ 80 mls/hr TPN CONT IV Last administered on 10/16/19at 22:06; Start 10/16/19 at 22:00; Stop 10/17/19 at 21:59; Status DC Meropenem 500 mg/ Sodium Chloride 50 ml @ 100 mls/hr Q6HRS IV Last adminis tered on 10/30/19at 12:40; Start 10/16/19 at 18:00 Daptomycin 500 mg/ Sodium Chloride 50 ml @ 100 mls/hr Q24H IV Last administe red on 10/24/19at 21:47; Start 10/16/19 at 19:00; Stop 10/25/19 at 08:13; Status DC Sodium Chloride 80 meq/Potassium Chloride 30 meq/ Potassium Acetate 30 meq/Magnesium Sulfate 14 meq/ Multivitamins 10 ml/Chromium/ Copper/Manganese/ Seleni/Zn 1 ml/ Insulin Human Regular 15 unit/ Total Parenteral Nutrition/Amino Acids/Dextrose/ Fat Emulsion Intravenous 1,920 ml @ 80 mls/hr TPN CONT IV Last administered on 10/17/19at 22:09; Start 10/17/19 at 22:00; Stop 10/18/19 at 21:59; Status DC Heparin Sodium (Porcine) 1000 unit/Sodium Chloride 1,001 ml @ 1,001 mls/hr 1X ONCE IRR ; Start 10/18/19 at 06:00; Stop 10/18/19 at 06:59; Status DC Propofol (Diprivan) 200 mg STK-MED ONCE IV ; Start 10/18/19 at 07:44; Stop 10/18/19 at 07:44; Status DC Lidocaine HCl (Lidocaine Pf 2% Vial) 5 ml STK-MED ONCE .ROUTE ; Start 10/18/19 at 07:44; Stop 10/18/19 at 07:44; Status DC Fentanyl Citrate (Fentanyl 2ml Vial) 100 mcg STK-MED ONCE .ROUTE ; Start 10/18/19 at 07:44; Stop 10/18/19 at 07:44; Status DC Rocuronium [place] (Zemuron) 100 mg STK-MED ONCE .ROUTE ; Start 10/18/19 at 07:44; Stop 10/18/19 at 07:44; Status DC Micafungin Sodium 100 mg/Dextrose 100 ml @ 100 mls/hr Q24H IV Last administered on 10/30/19at 08:19; Start 10/18/19 at 08:30 Bupivacaine HCl/ Epinephrine Bitart (Sensorcain-Epi 0.5%-1:322249 Mpf) 30 ml STK-MED ONCE .ROUTE ; Start 10/18/19 at 08:34; Stop 10/18/19 at 08:35; Status DC Iohexol (Omnipaque 300 Mg/ml) 50 ml STK-MED ONCE .ROUTE Last administered on 10/18/19at 13:30; Start 10/18/19 at 08:35; Stop 10/18/19 at 08:35; Status DC Sodium Chloride 80 meq/Potassium Chloride 30 meq/ Potassium Acetate 30 meq/Magnesium Sulfate 14 meq/ Multivitamins 10 ml/Chromium/ Copper/Manganese/ Seleni/Zn 1 ml/ Insulin Human Regular 15 unit/ Total Parenteral Nutrition/Amino Acids/Dextrose/ Fat Emulsion Intravenous 1,920 ml @ 80 mls/hr TPN CONT IV Last administered on 10/19/19at 01:22; Start 10/18/19 at 22:00; Stop 10/19/19 at 21:59; Status DC Phenylephrine HCl (Brayden-Synephrine Inj) 10 mg STK-MED ONCE .ROUTE ; Start 10/18/19 at 10:15; Stop 10/18/19 at 10:15; Status DC Desflurane (Suprane) 90 ml STK-MED ONCE IH ; Start 10/18/19 at 10:18; Stop 10/18/19 at 10:19; Status DC Albumin Human 500 ml @ As Directed STK-MED ONCE IV ; Start 10/18/19 at 11:06; Stop 10/18/19 at 11:06; Status DC Vasopressin (Vasostrict) 20 unit STK-MED ONCE .ROUTE ; Start 10/18/19 at 12:23; Stop 10/18/19 at 12:23; Status DC Phenylephrine HCl (Brayden-Synephrine Inj) 10 mg STK-MED ONCE .ROUTE ; Start 10/18/19 at 13:33; Stop 10/18/19 at 13:33; Status DC Phenylephrine HCl (Brayden-Synephrine Inj) 10 mg STK-MED ONCE .ROUTE ; Start 10/18/19 at 13:33; Stop 10/18/19 at 13:33; Status DC Ondansetron HCl (Zofran) 4 mg STK-MED ONCE .ROUTE ; Start 10/18/19 at 13:33; Stop 10/18/19 at 13:33; Status DC Enoxaparin Sodium (Lovenox 40mg Syringe) 40 mg Q24H SQ Last administered on 10/30/19at 08:20; Start 10/19/19 at 08:00 Sodium Chloride (Normal Saline Flush) 3 ml QSHIFT PRN IV AFTER MEDS AND BLOOD DRAWS; Start 10/18/19 at 14:45 Naloxone HCl (Narcan) 0.4 mg PRN Q2MIN PRN IV SEE INSTRUCTIONS; Start 10/18/19 at 14:45 Sodium Chloride 1,000 ml @ 25 mls/hr Q24H IV Last administered on 10/26/19at 21:15; Start 10/18/19 at 14:33 Morphine Sulfate (Morphine Sulfate) 1 mg PRN Q1HR PRN IV PAIN; Start 10/18/19 at 14:45 Midazolam HCl 100 mg/Sodium Chloride 100 ml @ 1 mls/hr CONT PRN IV SEE I/O RECORD Last administered on 10/21/19at 18:48; Start 10/18/19 at 14:45 Phenylephrine HCl (PHENYLEPHRINE in 0.9% NACL PF) 1 mg STK-MED ONCE IV ; Start 10/18/19 at 14:44; Stop 10/18/19 at 14:45; Status DC Ephedrine Sulfate (ePHEDrine PF IN SALINE SYRINGE) 50 mg STK-MED ONCE IV ; Start 10/18/19 at 14:45; Stop 10/18/19 at 14:45; Status DC Vasopressin 20 unit/Dextrose 101 ml @ 12 mls/hr CONT PRN IV SEE I/O RECORD Last administered on 10/25/19at 04:17; Start 10/18/19 at 15:30 Sodium Chloride 1,000 ml @ 1,000 mls/hr 1X ONCE IV Last administered on 10/18/19at 15:42; Start 10/18/19 at 15:45; Stop 10/18/19 at 16:44; Status DC Albumin Human 500 ml @ 125 mls/hr 1X ONCE IV ; Start 10/18/19 at 16:00; Stop 10/18/19 at 19:59; Status DC Albumin Human 500 ml @ 125 mls/hr PRN Q1HR PRN IV PER PROTOCOL; Start 10/18/19 at 15:45 Magnesium Sulfate 50 ml @ 25 mls/hr 1X ONCE IV Last administered on 10/18/19at 17:02; Start 10/18/19 at 16:30; Stop 10/18/19 at 18:29; Status DC Sodium Bicarbonate (Sodium Bicarb Adult 8.4% Syr) 50 meq STK-MED ONCE .ROUTE ; Start 10/18/19 at 16:20; Stop 10/18/19 at 16:20; Status DC Sodium Bicarbonate (Sodium Bicarb Adult 8.4% Syr) 100 meq 1X ONCE IV Last administered on 10/18/19at 17:07; Start 10/18/19 at 16:30; Stop 10/18/19 at 16:31; Status DC Sodium Bicarbonate 150 meq/Dextrose 1,150 ml @ 75 mls/hr 1X ONCE IV Last administered on 10/18/19at 20:02; Start 10/18/19 at 16:30; Stop 10/19/19 at 07:49; Status DC Sodium Chloride 80 meq/Potassium Chloride 30 meq/ Potassium Acetate 30 meq/Magnesium Sulfate 14 meq/ Multivitamins 10 ml/Chromium/ Copper/Manganese/ Seleni/Zn 1 ml/ Insulin Human Regular 15 unit/ Total Parenteral Nutrition/Amino Acids/Dextrose/ Fat Emulsion Intravenous 1,920 ml @ 80 mls/hr TPN CONT IV Last administered on 10/19/19at 23:05; Start 10/19/19 at 22:00; Stop 10/20/19 at 21:59; Status DC Sodium Chloride 100 meq/Potassium Chloride 30 meq/ Potassium Acetate 30 meq/Magnesium Sulfate 12 meq/ Multivitamins 10 ml/Chromium/ Copper/Manganese/ Seleni/Zn 1 ml/ Insulin Human Regular 15 unit/ Total Parenteral Nutrition/Amino Acids/Dextrose/ Fat Emulsion Intravenous 1,920 ml @ 80 mls/hr TPN CONT IV Last administered on 10/20/19at 21:52; Start 10/20/19 at 22:00; Stop 10/21/19 at 21:59; Status DC Sodium Chloride 100 meq/Potassium Chloride 30 meq/ Potassium Acetate 30 meq/Magnesium Sulfate 12 meq/ Multivitamins 10 ml/Chromium/ Copper/Manganese/ Seleni/Zn 1 ml/ Insulin Human Regular 15 unit/ Total Parenteral Nutrition/Amino Acids/Dextrose/ Fat Emulsion Intravenous 1,920 ml @ 80 mls/hr TPN CONT IV Last administered on 10/21/19at 21:46; Start 10/21/19 at 22:00; Stop 10/22/19 at 21:59; Status DC Sodium Chloride 100 meq/Potassium Chloride 30 meq/ Potassium Acetate 30 meq/Magnesium Sulfate 12 meq/ Multivitamins 10 ml/Chromium/ Copper/Manganese/ Seleni/Zn 1 ml/ Insulin Human Regular 15 unit/ Total Parenteral Nutrition/Amino Acids/Dextrose/ Fat Emulsion Intravenous 1,800 ml @ 75 mls/hr TPN CONT IV Last administered on 10/22/19at 22:04; Start 10/22/19 at 22:00; Stop 10/23/19 at 21:59; Status DC Fentanyl Citrate 55 ml @ 0 mls/hr CONT PRN IV SEE COMMENTS Last administered on 10/24/19at 23:55; Start 10/22/19 at 13:00; Stop 10/27/19 at 17:28; Status DC Sodium Chloride 100 meq/Potassium Chloride 30 meq/ Potassium Acetate 30 meq/Ma gnesium Sulfate 12 meq/ Multivitamins 10 ml/Chromium/ Copper/Manganese/ Seleni/Zn 1 ml/ Insulin Human Regular 15 unit/ Total Parenteral Nutrition/Amino Acids/Dextrose/ Fat Emulsion Intravenous 1,680 ml @ 70 mls/hr TPN CONT IV Last administered on 10/23/19at 21:23; Start 10/23/19 at 22:00; Stop 10/24/19 at 21:59; Status DC Sodium Chloride 110 meq/Potassium Chloride 30 meq/ Potassium Acetate 30 meq/Magnesium Sulfate 15 meq/ Multivitamins 10 ml/Chromium/ Copper/Manganese/ Seleni/Zn 1 ml/ Insulin Human Regular 15 unit/ Total Parenteral Nutrition/Amino Acids/Dextrose/ Fat Emulsion Intravenous 1,680 ml @ 70 mls/hr TPN CONT IV Last administered on 10/24/19at 21:48; Start 10/24/19 at 22:00; Stop 10/25/19 at 21:59; Status DC Sodium Chloride 110 meq/Potassium Chloride 30 meq/ Potassium Acetate 30 meq/Magnesium Sulfate 15 meq/ Multivitamins 10 ml/Chromium/ Copper/Manganese/ Seleni/Zn 1 ml/ Insulin Human Regular 15 unit/ Total Parenteral Nutrition/Amino Acids/Dextrose/ Fat Emulsion Intravenous 1,680 ml @ 70 mls/hr TPN CONT IV Last administered on 10/25/19at 21:33; Start 10/25/19 at 22:00; Stop 10/26/19 at 21:59; Status DC Sodium Chloride 110 meq/Potassium Chloride 30 meq/ Potassium Acetate 30 meq/Magnesium Sulfate 15 meq/ Multivitamins 10 ml/Chromium/ Copper/Manganese/ Se [place]orah/Zn 1 ml/ Insulin Human Regular 15 unit/ Total Parenteral Nutrition/Amino Acids/Dextrose/ Fat Emulsion Intravenous 1,680 ml @ 70 mls/hr TPN CONT IV Last administered on 10/26/19at 21:51; Start 10/26/19 at 22:00; Stop 10/27/19 at 21:59; Status DC Sodium Chloride 90 meq/Potassium Chloride 30 meq/ Potassium Acetate 30 meq/Magnesium Sulfate 15 meq/ Multivitamins 10 ml/Chromium/ Copper/Manganese/ Seleni/Zn 1 ml/ Insulin Human Regular 15 unit/ Total Parenteral Nutrition/Amino Acids/Dextrose/ Fat Emulsion Intravenous 1,680 ml @ 70 mls/hr TPN CONT IV Last administered on 10/27/19at 22:38; Start 10/27/19 at 22:00; Stop 10/28/19 at 21:59; Status DC Fentanyl Citrate 30 ml @ 0 mls/hr CONT PRN IV SEE I/O RECORD; Start 10/27/19 at 17:30 Fentanyl (Duragesic 12mcg/ Hr Patch) 1 patch Q3DAYS TD Last administered on 10/28/19at 18:03; Start 10/28/19 at 09:00 Sodium Chloride 90 meq/Potassium Chloride 30 meq/ Potassium Acetate 30 meq/Magnesium Sulfate 15 meq/ Multivitamins 10 ml/Chromium/ Copper/Manganese/ Seleni/Zn 1 ml/ Insulin Human Regular 15 unit/ Total Parenteral Nutrition/Amino Acids/Dextrose/ Fat Emulsion Intravenous 1,680 ml @ 70 mls/hr TPN CONT IV Last administered on 10/28/19at 21:59; Start 10/28/19 at 22:00; Stop 10/29/19 at 21:59; Status DC Sodium Chloride 90 meq/Potassium Chloride 30 meq/ Potassium Acetate 30 meq/Magnesium Sulfate 15 meq/ Multivitamins 10 ml/Chromium/ Copper/Manganese/ Seleni/Zn 1 ml/ Insulin Human Regular 15 unit/ Total Parenteral Nutrition/Amino Acids/Dextrose/ Fat Emulsion Intravenous 1,680 ml @ 70 mls/hr TPN CONT IV Last administered on 10/29/19at 21:35; Start 10/29/19 at 22:00; Stop 10/30/19 at 21:59 Vancomycin HCl (Vanco Per Pharmacy) 1 each PRN DAILY PRN MC SEE COMMENTS Last administered on 10/30/19at 09:34; Start 10/30/19 at 09:15 Ciprofloxacin/ Dextrose 200 ml @ 200 mls/hr Q12HR IV Last administered on 10/30/19at 10:34; Start 10/30/19 at 10:00 Vancomycin HCl 2 gm/Sodium Chloride 500 ml @ 250 mls/hr 1X ONCE IV Last administered on 10/30/19at 10:34; Start 10/30/19 at 10:00; Stop 10/30/19 at 11:59; Status DC Sodium Chloride 90 meq/Potassium Chloride 30 meq/ Potassium Acetate 30 meq/Magnesium Sulfate 15 meq/ Multivitamins 10 ml/Chromium/ Copper/Manganese/ Seleni/Zn 1 ml/ Insulin Human Regular 15 unit/ Total Parenteral Nutrition/Amino Acids/Dextrose/ Fat Emulsion Intravenous 1,680 ml @ 70 mls/hr TPN CONT IV ; Start 10/30/19 at 22:00; Stop 10/31/19 at 21:59 Active Scripts Active Reported Bisoprolol Fumarate 5 Mg Tablet 10 Mg PO DAILY Vitals/I & O Vital Sign - Last 24 Hours 10/29/19 10/29/19 10/29/19 10/29/19 14:59 15:00 15:37 16:00 Temp 99.4 99.4 Pulse 111 114 Resp 32 34 16 B/P (MAP) 152/95 (114) 142/87 (105) Pulse Ox 98 99 99 O2 Delivery Tracheal Collar Trach shield Trach Collar Trach shield O2 Flow Rate 6.0 6.0 10/29/19 10/29/19 10/29/19 10/29/19 16:22 17:00 18:00 18:20 Pulse 122 124 Resp 36 38 36 B/P (MAP) 150/82 (104) 178/100 (126) Pulse Ox 100 99 92 O2 Delivery Tracheal Collar Trach shield Trach shield Tracheal Collar O2 Flow Rate 6.0 6.0 10/29/19 10/29/19 10/29/19 10/29/19 18:30 18:58 19:00 19:52 Pulse 119 120 Resp 36 35 B/P (MAP) 138/80 (99) 156/86 (109) Pulse Ox 99 100 100 O2 Delivery Tracheal Collar Trach shield Tracheal Collar O2 Flow Rate 6.0 8.0 7/03/0910/29/19 10/29/19 10/29/19 20:00 20:00 21:00 21:50 Temp 100.1 100.1 Pulse 118 126 Resp 36 39 38 B/P (MAP) 158/86 (110) 175/102 (126) Pulse Ox 100 100 98 O2 Delivery Trach shield Trach Collar Trach shield Tracheal Collar O2 Flow Rate 6.0 6.0 10/29/19 10/29/19 10/29/19 10/30/19 22:00 22:20 23:00 00:00 Pulse 126 126 Resp 36 31 40 B/P (MAP) 151/82 (105) 143/85 (104) Pulse Ox 100 98 100 O2 Delivery Trach shield Tracheal Collar Trach shield Trach Collar O2 Flow Rate 6.0 6.0 10/30/19 10/30/19 10/30/19 10/30/19 00:00 00:12 01:00 02:00 Temp 99.4 99.4 Pulse 132 133 135 Resp 38 38 44 B/P (MAP) 151/90 (110) 155/89 (111) 149/89 (109) Pulse Ox 96 100 96 97 O2 Delivery Trach shield Tracheal Collar Trach shield Trach shield O2 Flow Rate 8.0 10/30/19 10/30/19 10/30/19 10/30/19 02:46 03:00 03:16 04:00 Pulse 141 139 Resp 37 44 44 44 B/P (MAP) 152/83 (106) 156/93 (114) Pulse Ox 97 97 95 95 O2 Delivery Tracheal Collar Trach shield Tracheal Collar Trach shield O2 Flow Rate 6.0 6.0 10/30/19 10/30/19 10/30/19 10/30/19 04:00 04:41 05:00 05:11 Temp 101.9 101.9 Pulse 148 Resp 44 44 B/P (MAP) 152/83 (106) Pulse Ox 94 95 95 O2 Delivery Trach Collar Tracheal Collar Trach shield Tracheal Collar O2 Flow Rate 6.0 6.0 6.0 10/30/19 10/30/19 10/30/19 10/30/19 06:00 07:00 08:00 08:00 Temp 98.4 98.4 Pulse 146 146 142 Resp 45 42 42 B/P (MAP) 162/90 (114) 167/92 (117) 151/82 (105) Pulse Ox 93 92 93 O2 Delivery Trach shield Trach shield Trach Collar Trach shield O2 Flow Rate 9.0 9.0 9.0 10/30/19 10/30/19 10/30/19 10/30/19 08:21 08:22 08:52 09:00 Pulse 141 Resp 42 36 B/P (MAP) 151/82 Pulse Ox 93 96 O2 Delivery Tracheal Collar Tracheal Collar Tracheal Collar O2 Flow Rate 6.0 8.0 6.0 10/30/19 10/30/19 10/30/19 10/30/19 09:00 10:00 11:00 11:50 Pulse 118 122 124 Resp 40 41 41 B/P (MAP) 142/90 (107) 138/76 (96) 150/91 (110) Pulse Ox 99 97 98 O2 Delivery Trach shield Trach shield Trach shield Trach Collar O2 Flow Rate 9.0 9.0 9.0 9.0 10/30/19 10/30/19 10/30/19 10/30/19 12:00 12:06 12:42 13:00 Temp 100.0 100.0 Pulse 127 126 Resp 38 40 38 B/P (MAP) 133/78 (96) 146/87 (106) Pulse Ox 100 97 100 100 O2 Delivery Trach shield Tracheal Collar Tracheal Collar Trach shield O2 Flow Rate 9.0 8.0 9.0 9.0 10/30/19 10/30/19 13:15 14:00 Temp 99.2 99.2 Pulse 123 Resp 33 36 B/P (MAP) 132/86 (101) Pulse Ox 95 O2 Delivery Tracheal Collar Trach shield O2 Flow Rate 9.0 9.0 Intake and Output 10/29/19 10/29/19 10/30/19 15:00 23:00 07:00 Intake Total 300 ml 1080 ml 100 ml Output Total 1345 ml 915 ml 735 ml Balance -1045 ml 165 ml -635 ml Justicifation of Admission Dx: Justifications for Admission: Justification of Admission Dx: Yes DAVIN LANDEROS MD Oct 30, 2019 14:24
[2019-10-30] MEDS: IV NORMAL SALINE 1000ML BAG 1,000 ML IV SCH (14:27)
[2019-10-30] MEDS ORDERED: diphenhydrAMINE 50 MG/ML VIAL IVP ONE (14:30)
--- NOTE | 2019-10-30 15:37 | NUR ---
1500 patient RR consistently 35-40's for 12 hrs. Seemed to be wearing out on the trach shield. Considering s/s of aspirating gastric contents yesterday and early this morning, decided to placed patient back on ventillator; PS 18/5 35% O2. Will monitor.
[2019-10-30] MEDS: PROCHLORPERAZINE 10 MG/2 ML VIAL. IV PRN (15:48)
--- NOTE | 2019-10-30 16:08 | NUR ---
Pharmacy Vancomycin Dosing Note S:Consulted to monitor and dose vancomycin started 10/30/19. O:SCOTT CUELLAR is a 48 year old F with Abscess HCAP . Height: 5 feet, 8 inches Weight: 97.5 kg Sagle Body Weight: 63.90 Adjusted Body Weight: 77.34 Dosing Weight: Actual Other Antibiotics: CIPRO, MERREM, MICAFUGIN LABS: Last BUN: 11 Last Creatinine: 0.5 Creatinine Clearance: >100 mL/min Last WBC: 18.5 Last Procalcitonin: Tmax (past 24 hours): 101.9 Microbiology: PENDING I/O: 1480/2995 Drug Levels: Last level: on at Last dose given 10/30/19 at 1000 Vancomycin Dosing: Loading Dose: 2000 mg x1 Dosing Weight: Actual Target Trough: 15-20 A: Based on: WEIGHT AND RENAL FUNCTION, VANCOMYCIN 2GM IV BOLUS GIVEN, P: 1. Begin Vancomycin 1500 mg IV q8h 2. Follow up Trough level on 10/31/19 at 1000 3. Pharmacy will continue to monitor, follow and adjust therapy as needed. [facility], 10/30/19 [id number]
[2019-10-30] MEDS: VANCOMYCIN 1.5 GM in IV NORMAL SALINE 500ML BAG 500 ML IV SCH (18:00)
[2019-10-30] MEDS ORDERED: AMINO ACID IV SCH ×10 (22:00)
[2019-10-30] MEDS ORDERED: DEXTROSE 70% IV SCH ×10 (22:00)
[2019-10-30] MEDS ORDERED: [UNRECOGNIZED DRUG - OTHER] IV SCH ×10 (22:00)
[2019-10-30] MEDS ORDERED: TOTAL PARENTERAL NUTRITION IV SCH ×10 (22:00)
[2019-10-31] VITALS (24 sets, daily range): BP systolic 108–154; BP diastolic 60–98
[2019-10-31] MEDS: MEROPENEM 500 MG in IV NORMAL SALINE 50ML 50 ML IV SCH ×4 (00:34→17:19)
[2019-10-31] MEDS: VANCOMYCIN 1.5 GM in IV NORMAL SALINE 500ML BAG 500 ML IV SCH (03:08)
[2019-10-31] MEDS: ONDANSETRON PF 4 MG/2 ML VIAL. IV PRN ×3 (04:30→17:18)
[2019-10-31] MEDS: IPRATRPIUM/ALBUTEROL 0.5/2.5MG 3 ML NEBU. NEB SCH ×5 (04:40→19:54)
[2019-10-31] MEDS: INSULIN LISPRO 300 UNITS/3 ML VIAL. SQ SCH ×4 (05:38→18:00)
[2019-10-31] MEDS: fentaNYL PF VIAL 100 MCG/2 ML VIAL IV PRN ×2 (05:39→20:07)
[2019-10-31 05:56] LABS: BASO % 0 % (0-3); EOS # 0.2 x10^3/uL (0.0-0.7); EOS % 2 % (0-3); HEMATOCRIT 21.7 % (36.0-47.0); HEMOGLOBIN 7.4 g/dL (12.0-15.5); LYMPH # 0.8 x10^3/uL (1.0-4.8); LYMPH % 8 % (24-48); MEAN CORPUSCULAR HEMOGLOBIN 30 pg (25-35); MEAN CORPUSCULAR HGB CONC 34 g/dL (31-37); MEAN CORPUSCULAR VOLUME 88 fL (79-100); MONO # 0.8 x10^3/uL (0.0-1.1); MONO % 8 % (0-9); NEUT # 8.7 x10^3/uL (1.8-7.7); NEUT % 83 % (31-73); PLATELET COUNT 543 x10^3/uL (140-400); RED BLOOD COUNT 2.48 x10^6/uL (3.50-5.40); RED CELL DISTRIBUTION WIDTH 14.9 % (11.5-14.5); WHITE BLOOD COUNT 10.5 x10^3/uL (4.0-11.0)
--- NOTE | 2019-10-31 06:10 | RAD ---
AP portable chest radiograph 10/31/2019 Clinical History: Respiratory failure.. An AP erect portable digital radiograph of the chest was obtained. Comparison study is dated 10/16/2019. The tracheostomy tube and left arm PICC and the left-sided pleural drainage catheter are unchanged in position. The cardiac silhouette is mildly enlarged. The thoracic aorta is tortuous. There are small bilateral pleural effusions essentially unchanged. Left lower lobe atelectasis and/or infiltrate is unchanged. Improving right lower lobe atelectasis and/or infiltrate is noted. No pneumothorax is seen. The osseous structures are unchanged. Impression: Improving right lower lobe atelectasis and/or infiltrate. Electronically signed by: Enrique Pavon MD (10/31/2019 6:08 AM) [id number]
[2019-10-31 06:24] LABS: CALCIUM 8.5 mg/dL (8.5-10.1); CREATININE 0.5 mg/dL (0.6-1.0); GFR 131.1; MAGNESIUM 2.1 mg/dL (1.8-2.4); PHOSPHORUS 3.8 mg/dL (2.6-4.7); POTASSIUM 4.3 mmol/L (3.5-5.1)
--- NOTE | 2019-10-31 08:04 | PDOC ---
Infectious Disease Note Subjective Subjective sleepy on vent ROS ROS no n/v/d/ did have low grade fever Vital Sign Vital Signs Vital Signs Date Time Temp Pulse Resp B/P (MAP) Pulse Ox O2 Delivery O2 Flow Rate FiO2 10/31/19 06:00 116 20 148/74 (98) 100 Ventilator 10/31/19 04:00 100.3 100.3 10/30/19 14:00 9.0 Physical Exam PHYSICAL EXAM GENERAL: Propped up in bed, awake, weak appearing HEENT: Pupils equal, oral cavity dry. NGT out, on vent NECK: Tracheostomy LUNGS: Diminished aeration bases, CT on left HEART: S1, S2, regular, tachy ABDOMEN: Sightly less distended, bowel sounds hypoactive, soft, goyal x 2, 3 KAYLIN drains, G-J tube and + wound vac : Lind in place EXTREMITIES: Generalized edema, no cyanosis. SCDs & Podus boots bilaterally, SKIN: warm touch. No signs of rash. NEURO: awake, mouthing some words, tracking LUE-PICC without signs of complications LUE art-line out, mottling about old art-line site is improving. RP palpable, cap refill brisk. Labs Lab Laboratory Tests Test 10/30/19 12:38 10/30/19 17:58 10/31/19 00:21 10/31/19 05:35 Glucose (Fingerstick) 302 mg/dL (70-99) 106 mg/dL (70-99) 124 mg/dL (70-99) White Blood Count 10.5 x10^3/uL (4.0-11.0) Red Blood Count 2.48 x10^6/uL (3.50-5.40) Hemoglobin 7.4 g/dL (12.0-15.5) Hematocrit 21.7 % (36.0-47.0) Mean Corpuscular Volume 88 fL (79-100) Mean Corpuscular Hemoglobin 30 pg (25-35) Mean Corpuscular Hemoglobin Concent 34 g/dL (31-37) Red Cell Distribution Width 14.9 % (11.5-14.5) Platelet Count 543 x10^3/uL (140-400) Neutrophils (%) (Auto) 83 % (31-73) Lymphocytes (%) (Auto) 8 % (24-48) Monocytes (%) (Auto) 8 % (0-9) Eosinophils (%) (Auto) 2 % (0-3) Basophils (%) (Auto) 0 % (0-3) Neutrophils # (Auto) 8.7 x10^3/uL (1.8-7.7) Lymphocytes # (Auto) 0.8 x10^3/uL (1.0-4.8) Monocytes # (Auto) 0.8 x10^3/uL (0.0-1.1) Eosinophils # (Auto) 0.2 x10^3/uL (0.0-0.7) Basophils # (Auto) 0.0 x10^3/uL (0.0-0.2) Sodium Level 137 mmol/L (136-145) Potassium Level 4.3 mmol/L (3.5-5.1) Chloride Level 104 mmol/L (98-107) Carbon Dioxide Level 29 mmol/L (21-32) Anion Gap 4 (6-14) Blood Urea Nitrogen 9 mg/dL (7-20) Creatinine 0.5 mg/dL (0.6-1.0) Estimated GFR (Cockcroft-Gault) 131.1 Glucose Level 113 mg/dL (70-99) Calcium Level 8.5 mg/dL (8.5-10.1) Phosphorus Level 3.8 mg/dL (2.6-4.7) Magnesium Level 2.1 mg/dL (1.8-2.4) Test 10/31/19 05:37 Glucose (Fingerstick) 110 mg/dL (70-99) Micro Objective Assessment Patient with prolonged hospitalization more than 3 months Multiple medical problems Multiple surgical procedures S/P Exp. 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 parapsilosis & PSAE (I-merrem/ceftazidime/AZT/cefepime)) Leucocytosis -trending upward Fever Acute gallstone pancreatitis with persistent necrosis - 07/27. CT A/P Increased ascites. 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 status post KAYLIN drain placement; C. parapsilosis. s/p drain 08/23 + yeast & high amylase; s/p additional drain on 08/25. Drains removed. -08/23. fluid devyn parapsilosis fluid, amylase high - 09/23 showed multiple pseudocysts, slight larger on the right. s/p drains x 3, 09/24. + PSAE (MDRO-R Cefepime, Zosyn ALEXANDRA < 64) and yeast, -09/24 s/p drain replacement x 3; fluid cult PSAE (MDRO), yeast; treated -10/29 CT A/P shows smaller fluid collections. Ascites s/p paracentesis 08/02 & 08/23. C. parapsilosis Cholelithiasis with thickening of the gallbladder wall. JUANA, Hyperkalemia, Metabolic acidosis off dialysis Acute hypoxic resp failure. trach/vent. sputum 09/30 + PSAE (I merrem) Pleural effusions s/p left thoracentesis, 08/29. no culture. s/p left chest tube, 10/02 no growth Hypocalcemia Prediabetes HTN Anemia s/p PRBCs Plan Plan of Care merrem and micafungin Add vanc per pharmacy protocal and cipro f/u BC /resp cultures Labs in am wound care /drain management as directed Contact isolation for CRE/MDRO D/w nursing Critically ill KIMMY JONES MD Oct 31, 2019 08:04
--- NOTE | 2019-10-31 08:24 | PDOC ---
PULMONARY PROGRESS NOTES Subjective Patient on trach shield Vitals Vital Signs Date Time Temp Pulse Resp B/P (MAP) Pulse Ox O2 Delivery O2 Flow Rate FiO2 10/31/19 06:00 116 20 148/74 (98) 100 Ventilator 10/31/19 04:00 100.3 100.3 10/30/19 14:00 9.0 General: Alert HEENT: Other (trach site ok) Lungs: Crackles Cardiovascular: S1, S2 Abdomen: Soft, Non-tender, Other (multiple KAYLIN drains ) Neuro Exam: Alert Extremities: Other (+1 BLE edema) Skin: Warm Labs Laboratory Tests Test 10/29/19 11:17 10/29/19 17:27 10/30/19 00:26 10/30/19 05:15 Glucose (Fingerstick) 144 mg/dL (70-99) 116 mg/dL (70-99) 120 mg/dL (70-99) White Blood Count 18.5 x10^3/uL (4.0-11.0) Red Blood Count 2.99 x10^6/uL (3.50-5.40) Hemoglobin 8.8 g/dL (12.0-15.5) Hematocrit 26.3 % (36.0-47.0) Mean Corpuscular Volume 88 fL (79-100) Mean Corpuscular Hemoglobin 29 pg (25-35) Mean Corpuscular Hemoglobin Concent 33 g/dL (31-37) Red Cell Distribution Width 15.0 % (11.5-14.5) Platelet Count 693 x10^3/uL (140-400) Neutrophils (%) (Auto) 82 % (31-73) Lymphocytes (%) (Auto) 10 % (24-48) Monocytes (%) (Auto) 7 % (0-9) Eosinophils (%) (Auto) 1 % (0-3) Basophils (%) (Auto) 0 % (0-3) Neutrophils # (Auto) 15.1 x10^3/uL (1.8-7.7) Lymphocytes # (Auto) 1.9 x10^3/uL (1.0-4.8) Monocytes # (Auto) 1.3 x10^3/uL (0.0-1.1) Eosinophils # (Auto) 0.1 x10^3/uL (0.0-0.7) Basophils # (Auto) 0.0 x10^3/uL (0.0-0.2) Sodium Level 139 mmol/L (136-145) Potassium Level 4.6 mmol/L (3.5-5.1) Chloride Level 103 mmol/L (98-107) Carbon Dioxide Level 30 mmol/L (21-32) Anion Gap 6 (6-14) Blood Urea Nitrogen 11 mg/dL (7-20) Creatinine 0.5 mg/dL (0.6-1.0) Estimated GFR (Cockcroft-Gault) 131.1 BUN/Creatinine Ratio 22 (6-20) Glucose Level 122 mg/dL (70-99) Calcium Level 9.3 mg/dL (8.5-10.1) Total Bilirubin 0.5 mg/dL (0.2-1.0) Aspartate Amino Transf (AST/SGOT) 23 U/L (15-37) Alanine Aminotransferase (ALT/SGPT) 35 U/L (14-59) Alkaline Phosphatase 156 U/L (46-116) Total Protein 4.8 g/dL (6.4-8.2) Albumin 1.5 g/dL (3.4-5.0) Albumin/Globulin Ratio 0.5 (1.0-1.7) Test 10/30/19 12:38 10/30/19 17:58 10/31/19 00:21 10/31/19 05:35 Glucose (Fingerstick) 302 mg/dL (70-99) 106 mg/dL (70-99) 124 mg/dL (70-99) White Blood Count 10.5 x10^3/uL (4.0-11.0) Red Blood Count 2.48 x10^6/uL (3.50-5.40) Hemoglobin 7.4 g/dL (12.0-15.5) Hematocrit 21.7 % (36.0-47.0) Mean Corpuscular Volume 88 fL (79-100) Mean Corpuscular Hemoglobin 30 pg (25-35) Mean Corpuscular Hemoglobin Concent 34 g/dL (31-37) Red Cell Distribution Width 14.9 % (11.5-14.5) Platelet Count 543 x10^3/uL (140-400) Neutrophils (%) (Auto) 83 % (31-73) Lymphocytes (%) (Auto) 8 % (24-48) Monocytes (%) (Auto) 8 % (0-9) Eosinophils (%) (Auto) 2 % (0-3) Basophils (%) (Auto) 0 % (0-3) Neutrophils # (Auto) 8.7 x10^3/uL (1.8-7.7) Lymphocytes # (Auto) 0.8 x10^3/uL (1.0-4.8) Monocytes # (Auto) 0.8 x10^3/uL (0.0-1.1) Eosinophils # (Auto) 0.2 x10^3/uL (0.0-0.7) Basophils # (Auto) 0.0 x10^3/uL (0.0-0.2) Sodium Level 137 mmol/L (136-145) Potassium Level 4.3 mmol/L (3.5-5.1) Chloride Level 104 mmol/L (98-107) Carbon Dioxide Level 29 mmol/L (21-32) Anion Gap 4 (6-14) Blood Urea Nitrogen 9 mg/dL (-) Creatinine 0.5 mg/dL (0.6-1.0) Estimated GFR (Cockcroft-Gault) 131.1 Glucose Level 113 mg/dL (70-99) Calcium Level 8.5 mg/dL (8.5-10.1) Phosphorus Level 3.8 mg/dL (2.6-4.7) Magnesium Level 2.1 mg/dL (1.8-2.4) Test 10/31/19 05:37 Glucose (Fingerstick) 110 mg/dL (70-99) Laboratory Tests Test 10/30/19 12:38 10/30/19 17:58 10/31/19 00:21 10/31/19 05:35 Glucose (Fingerstick) 302 mg/dL (70-99) 106 mg/dL (70-99) 124 mg/dL (70-99) White Blood Count 10.5 x10^3/uL (4.0-11.0) Red Blood Count 2.48 x10^6/uL (3.50-5.40) Hemoglobin 7.4 g/dL (12.0-15.5) Hematocrit 21.7 % (36.0-47.0) Mean Corpuscular Volume 88 fL (79-100) Mean Corpuscular Hemoglobin 30 pg (25-35) Mean Corpuscular Hemoglobin Concent 34 g/dL (31-37) Red Cell Distribution Width 14.9 % (11.5-14.5) Platelet Count 543 x10^3/uL (140-400) Neutrophils (%) (Auto) 83 % (31-73) Lymphocytes (%) (Auto) 8 % (24-48) Monocytes (%) (Auto) 8 % (0-9) Eosinophils (%) (Auto) 2 % (0-3) Basophils (%) (Auto) 0 % (0-3) Neutrophils # (Auto) 8.7 x10^3/uL (1.8-7.7) Lymphocytes # (Auto) 0.8 x10^3/uL (1.0-4.8) Monocytes # (Auto) 0.8 x10^3/uL (0.0-1.1) Eosinophils # (Auto) 0.2 x10^3/uL (0.0-0.7) Basophils # (Auto) 0.0 x10^3/uL (0.0-0.2) Sodium Level 137 mmol/L (136-145) Potassium Level 4.3 mmol/L (3.5-5.1) Chloride Level 104 mmol/L (98-107) Carbon Dioxide Level 29 mmol/L (21-32) Anion Gap 4 (6-14) Blood Urea Nitrogen 9 mg/dL (7-20) Creatinine 0.5 mg/dL (0.6-1.0) Estimated GFR (Cockcroft-Gault) 131.1 Glucose Level 113 mg/dL (70-99) Calcium Level 8.5 mg/dL (8.5-10.1) Phosphorus Level 3.8 mg/dL (2.6-4.7) Magnesium Level 2.1 mg/dL (1.8-2.4) Test 10/31/19 05:37 Glucose (Fingerstick) 110 mg/dL (70-99) Medications Active Scripts Medications Dose Route/Sig Max Daily Dose Days Date Category Bisoprolol Fumarate 5 Mg Tablet 10 Mg PO DAILY 07/04/[address] reviewed 10/30/19, Decreased left-sided effusion after catheter placement. The right-sided effusion has increased as has atelectasis. There has been exchange or placement of multiple drainage tubes and a gastrojejunostomy tube. Both collections are smaller. No significant new abdominal fluid collection is seen. The jejunal component of the gastrojejunostomy tube appears to be looped in the proximal small bowel. ct abdomen /pelvis 09/23 1. Removal of the percutaneous pigtail drainage catheters since the prior exam. Sequela of pancreatitis with extensive pseudocysts again demonstrated, the right-sided collections are slightly larger since the prior exam, the left-sided collections are stable. See above. 2. Moderate to large left pleural effusion with atelectasis and collapse of most of the left lower lobe, stable. Small right pleural effusion is stable. 3. Gallstone. ct chest 10/02 reviewed GRAM NEG COCCOBACILLI:MANY SQUAMOUS EPI CELL:RARE PMN (WBCs):FEW Unless otherwise specified, Testing Performed by: [facility] [address] [place] [address] For Inquires, the Physician may contact the Microbiology department at [phone] RESPIRATORY CULTURE Final Final MANY GRAM NEGATIVE RODS on 10/03/19 at 1107 FINAL ID= [[email or web address]] MICRO CHARGES PSEUDOMONAS AERUGINOSA ANTIMICROBIAL SUSCEPTIBILITY Final Comment NEG ALEXANDRA 56 PSEUDOMONAS AERUGINOSA ANTIBIOTIC RESULT INTERPRETATION AMIKACIN <=16 S AZTREONAM <=4 S CEFTAZIDIME <=1 S CIPROFLOXACIN <=0.25 S CEFEPIME <=2 S CEFTAZIDIME/AVIBACTAM <=4 S GENTAMICIN <=2 S LEVOFLOXACIN <=0.5 S Impression . IMPRESSION: 1. Acute hypoxemic respiratory failure secondary to ARDS status post trach, developed anemia 09/24, blood drainage from RLQ abdomen drain site, and surrounding firmness / developed septic shock / from abdomen source, required levo 6/7 s/p 3 new drains /7 with brown color drainage, 2. Gallstone pancreatitis, now with ongoing bleeding from prior drain. Anemic. s/p Tx multiple units over several days 3. septic shock/sepsis, recurrent /, source abdomen. new fever ? aspiration pneumonitis/pneumonia 4. Acute kidney injury-, Off HD--renal function decling. suspect JUANA on CKD due to hypotension , improved now 5. Acute gallstone pancreatitis. 6. Hypoalbuminemia. 7. Moderate persistent effusions, s/p left thora 08/29, reaccumulation of left effusion. O2 requirement not changed. 8. Fever- ,hypotension. suspect recurrent sepsis/ likely pancreatic source. Per ID, per surgery-- 9. Chronic anemia-- ongoing / s/p PRBC 10. Covid 19 testing negative 11. Moderate to large ascites-S/P paracentisis 12.S/P paracentisis with 4 liters removed on 08/03/19 13. S/P IR drain placement on 08/26/2019, removal, re inserted 09/24 14. Depression/Anxiety 15., Fever, per ID 10/17 S/P Exploratory laparotomy, lysis of adhesions, subtotal cholecystectomy with cholangiogram, gastrojejunostomy tube placement, pancreatic necrosectomy leukocytosis- improving Plan . Continue trach shield Up to chair Follow culture Follow surgery input DVT GI prophylaxis ABX per ID merrem and micafungin Added vanc and cipro per id f/u BC /resp cultures Continue TPN for nutrition support DVT/GI PPX D/W RN and RT, HARMEET BEE MD Oct 31, 2019 08:24
[2019-10-31] MEDS: MICAFUNGIN 100 MG in IV DEXTROSE 5% 100ML 100 ML IV SCH (08:28)
[2019-10-31] MEDS: ACETYLCYSTEINE 20% for RESP TX 600 MG/3 ML. NEB SCH ×2 (08:28→19:55)
[2019-10-31] MEDS: CIPROFLOXACIN 400MG PREMIX 200 ML IV SCH ×2 (08:31→21:19)
[2019-10-31] MEDS: ENOXAPARIN 40 MG/0.4 ML SYRINGE. SQ SCH (09:13)
[2019-10-31] MEDS: PANTOPRAZOLE IV PUSH 40 MG VIAL. IVP SCH (09:13)
--- NOTE | 2019-10-31 09:27 | PDOC ---
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 Metabolic encephalopathy. Fevers. Metabolic acidosis. Diffuse pulmonary infiltrate. Pleural effusion. Pancreatitis, necrotizing. Gallstone. Leukocytosis. Lymphopenia. Electrolytes imbalances. Hyperglycemia. DM. HTN. HLD. Anemia. Abnormal CXR. Obesity. Ascites and pleural effusion Ileus with vomiting Anemia JUANA Hyperkalemia Metabolic acidosis Hypertension S/P trache, back on vent Anemia S/P IR drain placement, 09/24 Hypotension, intermittently requiring Levophed She had exploratory laparotomy, lysis of adhesions, subtotal cholecystectomy with cholangiogram, gastrojejunostomy tube placement, pancreatic necrosectomy on 10/17 Plan Keppra if she has further seizures. Treat medical diseases. Subjective none Objective Vital Signs Date Time Temp Pulse Resp B/P (MAP) Pulse Ox O2 Delivery O2 Flow Rate FiO2 10/31/19 08:28 97 Ventilator 10/31/19 06:00 116 20 148/74 (98) 10/31/19 04:00 100.3 100.3 10/30/19 14:00 9.0 Intake and Output 10/31/19 07:00 Intake Total 2834 ml Output Total 3070 ml Balance -236 ml IV Total 2784 ml Tube Feeding 50 ml Output Urine Total 1130 ml Gastric Drainage Total 400 ml Drainage Total 1540 ml PHYSICAL EXAM Sedated (fentanyl patch), on vent PERRL. EOMI. CN: no focal findings. Muscle tone: normal. Muscle strength: minimal pain response DTR: 1+ Plantar reflex: Silent Gait: not examined in bed. Sensory exam: not testable Cerebellar: not testable Review of Relevant I have reviewed the following items kolby (where applicable) has been applied. Labs Laboratory Tests Test 10/29/19 11:17 10/29/19 17:27 10/30/19 00:26 10/30/19 05:15 Glucose (Fingerstick) 144 mg/dL (70-99) 116 mg/dL (70-99) 120 mg/dL (70-99) White Blood Count 18.5 x10^3/uL (4.0-11.0) Red Blood Count 2.99 x10^6/uL (3.50-5.40) Hemoglobin 8.8 g/dL (12.0-15.5) Hematocrit 26.3 % (36.0-47.0) Mean Corpuscular Volume 88 fL (79-100) Mean Corpuscular Hemoglobin 29 pg (25-35) Mean Corpuscular Hemoglobin Concent 33 g/dL (31-37) Red Cell Distribution Width 15.0 % (11.5-14.5) Platelet Count 693 x10^3/uL (140-400) Neutrophils (%) (Auto) 82 % (31-73) Lymphocytes (%) (Auto) 10 % (24-48) Monocytes (%) (Auto) 7 % (0-9) Eosinophils (%) (Auto) 1 % (0-3) Basophils (%) (Auto) 0 % (0-3) Neutrophils # (Auto) 15.1 x10^3/uL (1.8-7.7) Lymphocytes # (Auto) 1.9 x10^3/uL (1.0-4.8) Monocytes # (Auto) 1.3 x10^3/uL (0.0-1.1) Eosinophils # (Auto) 0.1 x10^3/uL (0.0-0.7) Basophils # (Auto) 0.0 x10^3/uL (0.0-0.2) Sodium Level 139 mmol/L (136-145) Potassium Level 4.6 mmol/L (3.5-5.1) Chloride Level 103 mmol/L (98-107) Carbon Dioxide Level 30 mmol/L (21-32) Anion Gap 6 (6-14) Blood Urea Nitrogen 11 mg/dL (7-20) Creatinine 0.5 mg/dL (0.6-1.0) Estimated GFR (Cockcroft-Gault) 131.1 BUN/Creatinine Ratio 22 (6-20) Glucose Level 122 mg/dL (70-99) Calcium Level 9.3 mg/dL (8.5-10.1) Total Bilirubin 0.5 mg/dL (0.2-1.0) Aspartate Amino Transf (AST/SGOT) 23 U/L (15-37) Alanine Aminotransferase (ALT/SGPT) 35 U/L (14-59) Alkaline Phosphatase 156 U/L (46-116) Total Protein 4.8 g/dL (6.4-8.2) Albumin 1.5 g/dL (3.4-5.0) Albumin/Globulin Ratio 0.5 (1.0-1.7) Test 10/30/19 12:38 10/30/19 17:58 10/31/19 00:21 10/31/19 05:35 Glucose (Fingerstick) 302 mg/dL (70-99) 106 mg/dL (70-99) 124 mg/dL (70-99) White Blood Count 10.5 x10^3/uL (4.0-11.0) Red Blood Count 2.48 x10^6/uL (3.50-5.40) Hemoglobin 7.4 g/dL (12.0-15.5) Hematocrit 21.7 % (36.0-47.0) Mean Corpuscular Volume 88 fL (79-100) Mean Corpuscular Hemoglobin 30 pg (25-35) Mean Corpuscular Hemoglobin Concent 34 g/dL (31-37) Red Cell Distribution Width 14.9 % (11.5-14.5) Platelet Count 543 x10^3/uL (140-400) Neutrophils (%) (Auto) 83 % (31-73) Lymphocytes (%) (Auto) 8 % (24-48) Monocytes (%) (Auto) 8 % (0-9) Eosinophils (%) (Auto) 2 % (0-3) Basophils (%) (Auto) 0 % (0-3) Neutrophils # (Auto) 8.7 x10^3/uL (1.8-7.7) Lymphocytes # (Auto) 0.8 x10^3/uL (1.0-4.8) Monocytes # (Auto) 0.8 x10^3/uL (0.0-1.1) Eosinophils # (Auto) 0.2 x10^3/uL (0.0-0.7) Basophils # (Auto) 0.0 x10^3/uL (0.0-0.2) Sodium Level 137 mmol/L (136-145) Potassium Level 4.3 mmol/L (3.5-5.1) Chloride Level 104 mmol/L (98-107) Carbon Dioxide Level 29 mmol/L (21-32) Anion Gap 4 (6-14) Blood Urea Nitrogen 9 mg/dL (7-20) Creatinine 0.5 mg/dL (0.6-1.0) Estimated GFR (Cockcroft-Gault) 131.1 Glucose Level 113 mg/dL (70-99) Calcium Level 8.5 mg/dL (8.5-10.1) Phosphorus Level 3.8 mg/dL (2.6-4.7) Magnesium Level 2.1 mg/dL (1.8-2.4) Test 10/31/19 05:37 Glucose (Fingerstick) 110 mg/dL (70-99) Laboratory Tests Test 10/30/19 12:38 10/30/19 17:58 10/31/19 00:21 10/31/19 05:35 Glucose (Fingerstick) 302 mg/dL (70-99) 106 mg/dL (70-99) 124 mg/dL (70-99) White Blood Count 10.5 x10^3/uL (4.0-11.0) Red Blood Count 2.48 x10^6/uL (3.50-5.40) Hemoglobin 7.4 g/dL (12.0-15.5) Hematocrit 21.7 % (36.0-47.0) Mean Corpuscular Volume 88 fL (79-100) Mean Corpuscular Hemoglobin 30 pg (25-35) Mean Corpuscular Hemoglobin Concent 34 g/dL (31-37) Red Cell Distribution Width 14.9 % (11.5-14.5) Platelet Count 543 x10^3/uL (140-400) Neutrophils (%) (Auto) 83 % (31-73) Lymphocytes (%) (Auto) 8 % (24-48) Monocytes (%) (Auto) 8 % (0-9) Eosinophils (%) (Auto) 2 % (0-3) Basophils (%) (Auto) 0 % (0-3) Neutrophils # (Auto) 8.7 x10^3/uL (1.8-7.7) Lymphocytes # (Auto) 0.8 x10^3/uL (1.0-4.8) Monocytes # (Auto) 0.8 x10^3/uL (0.0-1.1) Eosinophils # (Auto) 0.2 x10^3/uL (0.0-0.7) Basophils # (Auto) 0.0 x10^3/uL (0.0-0.2) Sodium Level 137 mmol/L (136-145) Potassium Level 4.3 mmol/L (3.5-5.1) Chloride Level 104 mmol/L (98-107) Carbon Dioxide Level 29 mmol/L (21-32) Anion Gap 4 (6-14) Blood Urea Nitrogen 9 mg/dL (7-20) Creatinine 0.5 mg/dL (0.6-1.0) Estimated GFR (Cockcroft-Gault) 131.1 Glucose Level 113 mg/dL (70-99) Calcium Level 8.5 mg/dL (8.5-10.1) Phosphorus Level 3.8 mg/dL (2.6-4.7) Magnesium Level 2.1 mg/dL (1.8-2.4) Test 10/31/19 05:37 Glucose (Fingerstick) 110 mg/dL (70-99) Microbiology 10/30/19 Blood Culture - Preliminary, Resulted NO GROWTH AFTER 1 DAY 10/18/19 Gram Stain - Final, Complete 10/18/19 Aerobic and Anaerobic Culture - Final, Complete 10/18/19 Antimicrobic Susceptibility - Final, Complete 10/03/19 Gram Stain - Final, Complete 10/03/19 Aerobic and Anaerobic Culture - Final, Complete 10/01/19 Gram Stain Evaluation - Final, Complete 10/01/19 Respiratory Culture - Final, Complete 10/01/19 Antimicrobic Susceptibility - Final, Complete 09/25/19 Urine Culture - Final, Complete 09/17/19 Gram Stain - Final, Complete 09/17/19 Aerobic Culture - Final, Complete Medications Current Medications Sodium Chloride 1,000 ml @ 1,000 mls/hr Q1H IV Last administered on 07/04/19at 03:00; Start 07/04/19 at 03:00; Stop 07/04/19 at 03:59; Status DC Ondansetron HCl (Zofran) 4 mg 1X ONCE IVP Last administered on 07/04/19at 03:27; Start 07/04/19 at 03:00; Stop 07/04/19 at 03:01; Status DC Morphine Sulfate (Morphine Sulfate) 4 mg 1X ONCE IV ; Start 07/04/19 at 03:00; Stop 07/04/19 at 03:01; Status Cancel Ketorolac Tromethamine (Toradol 30mg Vial) 30 mg 1X ONCE IV Last administered on 07/04/19at 02:54; Start 07/04/19 at 03:00; Stop 07/04/19 at 03:01; Status DC Fentanyl Citrate (Fentanyl 2ml Vial) 25 mcg 1X ONCE IVP Last administered on 07/04/19at 03:23; Start 07/04/19 at 03:30; Stop 07/04/19 at 03:31; Status DC Fentanyl Citrate (Fentanyl 2ml Vial) 100 mcg STK-MED ONCE .ROUTE ; Start 07/04/19 at 03:18; Stop 07/04/19 at 03:18; Status DC Iohexol (Omnipaque 350 Mg/ml) 90 ml 1X ONCE IV Last administered on 07/04/19at 03:25; Start 07/04/19 at 03:30; Stop 07/04/19 at 03:31; Status DC Info (CONTRAST GIVEN -- Rx MONITORING) 1 each PRN DAILY PRN MC SEE COMMENTS; Start 07/04/19 at 03:30; Stop 07/06/19 at 03:29; Status DC Hydromorphone HCl (Dilaudid) 0.5 mg 1X ONCE IV Last administered on 07/04/19at 03:55; Start 07/04/19 at 04:30; Stop 07/04/19 at 04:32; Status DC Ondansetron HCl (Zofran) 4 mg PRN Q8HRS PRN IV NAUSEA/VOMITING 1ST CHOICE; Start 07/04/19 at 05:00; Stop 07/04/19 at 09:27; Status DC Morphine Sulfate (Morphine Sulfate) 2 mg PRN Q2HR PRN IV SEVERE PAIN 7-10 Last administered on 07/05/19at 12:26; Start 07/04/19 at 05:00; Stop 07/05/19 at 14:15; Status DC Sodium Chloride 1,000 ml @ 125 mls/hr Q8H IV Last administered on 07/04/19at 20:56; Start 07/04/19 at 05:00; Stop 07/05/19 at 04:59; Status DC Hydromorphone HCl (Dilaudid) 0.5 mg PRN Q3HRS PRN IV SEVERE PAIN 7-10 Last administered on 07/05/19at 10:06; Start 07/04/19 at 05:00; Stop 07/05/19 at 12:01; Status DC Piperacillin Sod/ Tazobactam Sod 4.5 gm/Sodium Chloride 100 ml @ 200 mls/hr 1X ONCE IV Last administered on 07/04/19at 05:44; Start 07/04/19 at 06:00; Stop 07/04/19 at 06:29; Status DC Ondansetron HCl (Zofran) 4 mg PRN Q4HRS PRN IV NAUSEA/VOMITING 1ST CHOICE Last administered on 10/31/19at 04:30; Start 07/04/19 at 09:30 Insulin Human Lispro (HumaLOG) 0-9 UNITS Q6HRS SQ Last administered on 10/30/19at 12:43; Start 07/04/19 at 09:30 Dextrose (Dextrose 50%-Water Syringe) 12.5 gm PRN Q15MIN PRN IV SEE COMMENTS; Start 07/04/19 at 09:30 Pantoprazole Sodium (PROTONIX VIAL for IV PUSH) 40 mg DAILYAC IVP Last administered on 10/31/19at 09:13; Start 07/04/19 at 11:30 Prochlorperazine Edisylate (Compazine) 10 mg PRN Q6HRS PRN IV NAUSEA/VOMITING, 2nd CHOICE Last administered on 10/30/19at 15:48; Start 07/04/19 at 17:45 Atenolol (Tenormin) 100 mg DAILY PO ; Start 07/05/19 at 09:00; Stop 07/04/19 at 20:08; Status DC Metoprolol Tartrate (Lopressor Vial) 2.5 mg Q6HRS IVP Last administered on 07/05/19at 05:51; Start 07/04/19 at 20:15; Stop 07/05/19 at 10:02; Status DC Metoprolol Tartrate (Lopressor Vial) 5 mg Q6HRS IVP Last administered on 07/14/19at 00:12; Start 07/05/19 at 10:15; Stop 07/16/19 at 08:48; Status DC Hydromorphone HCl (Dilaudid) 1 mg PRN Q3HRS PRN IV SEVERE PAIN 7-10 Last administered on 07/11/19at 05:13; Start 07/05/19 at 12:00; Stop 07/19/19 at 00:25; Status DC Lidocaine HCl (Buffered Lidocaine 1%) 3 ml STK-MED ONCE .ROUTE ; Start 07/05/19 at 12:55; Stop 07/05/19 at 12:56; Status DC Albumin Human 500 ml @ 125 mls/hr 1X ONCE IV Last administered on 07/05/19at 14:33; Start 07/05/19 at 14:30; Stop 07/05/19 at 18:32; Status DC Norepinephrine Bitartrate 8 mg/ Dextrose 258 ml @ 17.299 mls/ hr CONT PRN IV PER PROTOCOL Last administered on 08/02/19at 12:48; Start 07/05/19 at 15:30; Stop 08/05/19 at 09:19; Status DC Sodium Chloride 1,000 ml @ 125 mls/hr Q8H IV Last administered on 07/05/19at 21:04; Start 07/05/19 at 16:00; Stop 07/06/19 at 02:42; Status DC Albumin Human 500 ml @ 125 mls/hr PRN BID PRN IV After every 2L NSS & BP < 90mm Last administered on 10/18/19at 16:06; Start 07/05/19 at 16:00; Stop 10/21/19 at 09:30; Status DC Iohexol (Omnipaque 300 Mg/ml) 60 ml 1X ONCE IV Last administered on 07/05/19at 17:20; Start 07/05/19 at 17:00; Stop 07/05/19 at 17:01; Status DC Info (CONTRAST GIVEN -- Rx MONITORING) 1 each PRN DAILY PRN MC SEE COMMENTS; Start 07/05/19 at 17:00; Stop 07/07/19 at 16:59; Status DC Meropenem 1 gm/ Sodium Chloride 100 ml @ 200 mls/hr Q8HRS IV Last administered on 07/06/19at 05:45; Start 07/05/19 at 20:00; Stop 07/06/19 at 08:48; Status DC Furosemide (Lasix) 40 mg 1X ONCE IVP Last administered on 07/05/19at 22:12; Start 07/05/19 at 22:30; Stop 07/05/19 at 22:31; Status DC Calcium Chloride 1000 mg/Sodium Chloride 110 ml @ 220 mls/hr 1X ONCE IV Last administered on 07/05/19at 22:11; Start 07/05/19 at 22:30; Stop 07/05/19 at 22:59; Status DC Albuterol Sulfate (Ventolin Neb Soln) 2.5 mg 1X ONCE NEB Last administered on 07/06/19at 00:56; Start 07/05/19 at 22:30; Stop 07/05/19 at 22:31; Status DC Insulin Human Regular (HumuLIN R VIAL) 5 unit 1X ONCE IV Last administered on 07/05/19at 22:14; Start 07/05/19 at 22:30; Stop 07/05/19 at 22:31; Status DC Magnesium Sulfate 50 ml @ 25 mls/hr 1X ONCE IV Last administered on 07/06/19at 02:57; Start 07/06/19 at 03:00; Stop 07/06/19 at 04:59; Status DC Calcium Gluconate 1000 mg/Sodium Chloride 110 ml @ 220 mls/hr 1X ONCE IV Last administered on 07/06/19at 02:46; Start 07/06/19 at 03:00; Stop 07/06/19 at 03:29; Status DC Sodium Chloride 1,000 ml @ 200 mls/hr Q5H IV Last administered on 07/06/19at 02:46; Start 07/06/19 at 03:00; Stop 07/06/19 at 10:21; Status DC Calcium Gluconate 1000 mg/Sodium Chloride 110 ml @ 220 mls/hr 1X ONCE IV Last administered on 07/06/19at 03:21; Start 07/06/19 at 03:30; Stop 07/06/19 at 03:59; Status DC Sodium Bicarbonate 50 meq/Sodium Chloride 1,050 ml @ 75 mls/hr Q14H IV Last administered on 07/10/19at 21:10; Start 07/06/19 at 07:30; Stop 07/11/19 at 10:28; Status DC Calcium Gluconate 2000 mg/Sodium Chloride 120 ml @ 220 mls/hr 1X ONCE IV Last administered on 07/06/19at 09:05; Start 07/06/19 at 07:30; Stop 07/06/19 at 08:02; Status DC Lidocaine HCl (Xylocaine-Mpf 1% 2ml Vial) 2 ml STK-MED ONCE .ROUTE ; Start 07/06/19 at 08:47; Stop 07/06/19 at 08:47; Status DC Meropenem 500 mg/ Sodium Chloride 50 ml @ 100 mls/hr Q12HR IV Last administered on 07/11/19at 21:01; Start 07/06/19 at 18:00; Stop 07/12/19 at 07:58; Status DC Lidocaine HCl (Buffered Lidocaine 1%) 3 ml STK-MED ONCE .ROUTE ; Start 07/06/19 at 09:46; Stop 07/06/19 at 09:46; Status DC Lidocaine HCl (Buffered Lidocaine 1%) 6 ml 1X ONCE INJ Last administered on 07/06/19at 10:26; Start 07/06/19 at 10:15; Stop 07/06/19 at 10:16; Status DC Info (Tpn Per Pharmacy) 1 each PRN DAILY PRN MC SEE COMMENTS Last administered on 10/30/19at 09:52; Start 07/06/19 at 12:00 Sodium Chloride 1,000 ml @ 1,000 mls/hr Q1H PRN IV hypotension; Start 07/06/19 at 12:07; Stop 07/06/19 at 18:06; Status DC Diphenhydramine HCl (Benadryl) 25 mg 1X PRN PRN IV ITCHING; Start 07/06/19 at 12:15; Stop 07/07/19 at 12:14; Status DC Diphenhydramine HCl (Benadryl) 25 mg 1X PRN PRN IV ITCHING; Start 07/06/19 at 12:15; Stop 07/07/19 at 12:14; Status DC Sodium Chloride 1,000 ml @ 400 mls/hr Q2H30M PRN IV PATENCY; Start 07/06/19 at 12:07; Stop 07/07/19 at 00:06; Status DC Info (PHARMACY MONITORING -- do not chart) 1 each PRN DAILY PRN MC SEE COMME NTS; Start 07/06/19 at 12:15; Stop 07/08/19 at 08:13; Status DC Sodium Chloride 90 meq/Calcium Gluconate 10 meq/ Multivitamins 10 ml/Chromium/ Copper/Manganese/ Seleni/Zn 1 ml/ Total Parenteral Nutrition/Amino Acids/Dextrose/ Fat Emulsion Intravenous 55.005 ml @ 2.292 mls/hr TPN CONT IV ; Start 07/06/19 at 22:00; Stop 07/06/19 at 12:33; Status DC Info (Tpn Per Pharmacy) 1 each PRN DAILY PRN MC SEE COMMENTS; Start 07/06/19 at 12:30; Status UNV Sodium Chloride 90 meq/Calcium Gluconate 10 meq/ Multivitamins 10 ml/Chromium/ Copper/Manganese/ Seleni/Zn 0.5 ml/ Total Parenteral Nutrition/Amino Acids/Dextrose/ Fat Emulsion Intravenous 1,512 ml @ 63 mls/hr TPN CONT IV Last administered on 07/06/19at 22:06; Start 07/06/19 at 22:00; Stop 07/07/19 at 21:59; Status DC Calcium Carbonate/ Glycine (Tums) 500 mg PRN AFTMEALHC PRN PO INDIGESTION; Start 07/06/19 at 17:45; Stop 08/31/19 at 10:25; Status DC Calcium Gluconate (Calcium Gluconate) 2,000 mg 1X ONCE IVP Last administered on 07/07/19at 02:19; Start 07/07/19 at 02:15; Stop 07/07/19 at 02:16; Status DC Calcium Chloride 3000 mg/Sodium Chloride 1,030 ml @ 50 mls/hr [id number] IV Last administered on 07/09/19at 02:17; Start 07/07/19 at 08:00; Stop 07/09/19 at 15:23; Status DC Lorazepam (Ativan Inj) 1 mg PRN Q4HRS PRN IVP ANXIETY / AGITATION, 2nd choic Last administered on 08/05/19at 03:51; Start 07/07/19 at 09:00; Stop 08/05/19 at 09:19; Status DC Sodium Chloride 1,000 ml @ 1,000 mls/hr Q1H PRN IV hypotension; Start 07/07/19 at 08:56; Stop 07/07/19 at 14:55; Status DC Albumin Human 200 ml @ 200 mls/hr 1X PRN PRN IV Hypotension; Start 07/07/19 at 09:00; Stop 07/07/19 at 14:59; Status DC Diphenhydramine HCl (Benadryl) 25 mg 1X PRN PRN IV ITCHING; Start 07/07/19 at 09:00; Stop 07/08/19 at 08:59; Status DC Diphenhydramine HCl (Benadryl) 25 mg 1X PRN PRN IV ITCHING; Start 07/07/19 at 09:00; Stop 07/08/19 at 08:59; Status DC Sodium Chloride 1,000 ml @ 400 mls/hr Q2H30M PRN IV PATENCY; Start 07/07/19 at 08:56; Stop 07/07/19 at 20:55; Status DC Info (PHARMACY MONITORING -- do not chart) 1 each PRN DAILY PRN MC SEE COMMENTS; Start 07/07/19 at 09:00; Status UNV Info (PHARMACY MONITORING -- do not chart) 1 each PRN DAILY PRN MC SEE COMMENTS; Start 07/07/19 at 09:00; Stop 07/08/19 at 08:13; Status DC Digoxin (Lanoxin) 500 mcg 1X ONCE IV Last administered on 07/07/19at 10:04; Start 07/07/19 at 10:00; Stop 07/07/19 at 10:01; Status DC Digoxin (Lanoxin) 125 mcg 1X ONCE IV Last administered on 07/07/19at 17:10; Start 07/07/19 at 18:00; Stop 07/07/19 at 18:01; Status DC Magnesium Sulfate 100 ml @ 25 mls/hr 1X ONCE IV Last administered on 07/07/19at 12:48; Start 07/07/19 at 13:00; Stop 07/07/19 at 16:59; Status DC Sodium Chloride 90 meq/Magnesium Sulfate 10 meq/ Calcium Gluconate 20 meq/ Multivitamins 10 ml/Chromium/ Copper/Manganese/ Seleni/Zn 0.5 ml/ Total Parenteral Nutrition/Amino Acids/Dextrose/ Fat Emulsion Intravenous 1,512 ml @ 63 mls/hr TPN CONT IV Last administered on 07/07/19at 22:25; Start 07/07/19 at 22:00; Stop 07/08/19 at 21:59; Status DC Sodium Chloride 1,000 ml @ 1,000 mls/hr Q1H PRN IV hypotension; Start 07/08/19 at 08:05; Stop 07/08/19 at 14:04; Status DC Albumin Human 200 ml @ 200 mls/hr 1X ONCE IV Last administered on 07/08/19at 08:57; Start 07/08/19 at 08:15; Stop 07/08/19 at 09:14; Status DC Diphenhydramine HCl (Benadryl) 25 mg 1X PRN PRN IV ITCHING; Start 07/08/19 at 08:15; Stop 07/09/19 at 08:14; Status DC Diphenhydramine HCl (Benadryl) 25 mg 1X PRN PRN IV ITCHING; Start 07/08/19 at 08:15; Stop 07/09/19 at 08:14; Status DC Sodium Chloride 1,000 ml @ 400 mls/hr Q2H30M PRN IV PATENCY; Start 07/08/19 at 08:05; Stop 07/08/19 at 20:04; Status DC Info (PHARMACY MONITORING -- do not chart) 1 each PRN DAILY PRN MC SEE COMMENTS; Start 07/08/19 at 08:15; Stop 07/12/19 at 07:57; Status DC Sodium Chloride 90 meq/Potassium Chloride 15 meq/ Potassium Phosphate 10 mmol/ Magnesium Sulfate 10 meq/Calcium Gluconate 20 meq/ Multivitamins 10 ml/Chromium/ Copper/Manganese/ Seleni/Zn 0.5 ml/ Total Parenteral Nutrition/Amino Acids/Dextrose/ Fat Emulsion Intravenous 1,512 ml @ 63 mls/hr TPN CONT IV Last administered on 07/08/19at 21:01; Start 07/08/19 at 22:00; Stop 07/09/19 at 21:59; Status DC Potassium Chloride/Water 100 ml @ 100 mls/hr 1X ONCE IV Last administered on 07/08/19at 14:09; Start 07/08/19 at 14:00; Stop 07/08/19 at 14:59; Status DC Benzocaine (Hurricaine One) 1 spray 1X ONCE MM Last administered on 07/08/19at 16:38; Start 07/08/19 at 14:30; Stop 07/08/19 at 14:31; Status DC Lidocaine HCl (Glydo (Lidocaine) Jelly) 1 ramu 1X ONCE MM Last administered on 07/08/19at 16:38; Start 07/08/19 at 14:30; Stop 07/08/19 at 14:31; Status DC Linezolid/Dextrose 300 ml @ 300 mls/hr Q12HR IV Last administered on 07/14/19at 21:04; Start 07/08/19 at 20:00; Stop 07/15/19 at 07:50; Status DC Acetaminophen (Tylenol) 650 mg PRN Q6HRS PRN PO MILD PAIN / TEMP; Start 07/09/19 at 03:30; Stop 07/09/19 at 03:36; Status DC Acetaminophen (Tylenol) 650 mg PRN Q6HRS PRN PEG MILD PAIN / TEMP Last administered on 08/04/19at 19:56; Start 07/09/19 at 03:36; Stop 08/31/19 at 10:25; Status DC Sodium Chloride 1,000 ml @ 1,000 mls/hr Q1H PRN IV hypotension; Start 07/09/19 at 07:50; Stop 07/09/19 at 13:49; Status DC Albumin Human 200 ml @ 200 mls/hr 1X PRN PRN IV Hypotension; Start 07/09/19 at 08:00; Stop 07/09/19 at 13:59; Status DC Sodium Chloride (Normal Saline Flush) 10 ml 1X PRN PRN IV AP catheter pack; Start 07/09/19 at 08:00; Stop 07/10/19 at 07:59; Status DC Sodium Chloride (Normal Saline Flush) 10 ml 1X PRN PRN IV [employer]AD [employer]LY[employer] catheter pack; Start 07/09/19 at 08:00; Stop 07/10/19 at 07:59; Status DC Sodium Chloride 1,000 ml @ 400 mls/hr Q2H30M PRN IV PATENCY; Start 07/09/19 at 07:50; Stop 07/09/19 at 19:49; Status DC Info (PHARMACY MONITORING -- do not chart) 1 each PRN DAILY PRN MC SEE COMMENTS; Start 07/09/19 at 08:00; Status UNV Info (PHARMACY MONITORING -- do not chart) 1 each PRN DAILY PRN MC SEE COMMENTS; Start 07/09/19 at 08:00; Stop 07/11/19 at 08:25; Status DC Sodium Chloride 90 meq/Potassium Chloride 15 meq/ Potassium Phosphate 10 mmol/ Magnesium Sulfate 10 meq/Calcium Gluconate 20 meq/ Multivitamins 10 ml/Chromium/ Copper/Manganese/ Seleni/Zn 0.5 ml/ Total Parenteral Nutrition/Amino Acids/Dextrose/ Fat Emulsion Intravenous 1,512 ml @ 63 mls/hr TPN CONT IV Last administered on 07/09/19at 20:57; Start 07/09/19 at 22:00; Stop 07/10/19 at 21:59; Status DC Sodium Chloride 90 meq/Potassium Chloride 15 meq/ Potassium Phosphate 15 mmol/ Magnesium Sulfate 10 meq/Calcium Gluconate 20 meq/ Multivitamins 10 ml/Chromium/ Copper/Manganese/ Seleni/Zn 0.5 ml/ Total Parenteral Nutrition/Amino Acids/Dextrose/ Fat Emulsion Intravenous 1,512 ml @ 63 mls/hr TPN CONT IV ; Start 07/10/19 at 22:00; Stop 07/10/19 at 14:16; Status DC Sodium Chloride 90 meq/Potassium Chloride 15 meq/ Potassium Phosphate 15 mmol/ Magnesium Sulfate 10 meq/Calcium Gluconate 20 meq/ Multivitamins 10 ml/Chromium/ Copper/Manganese/ Seleni/Zn 0.5 ml/ Total Parenteral Nutrition/Amino Acids/Dextrose/ Fat Emulsion Intravenous 1,200 ml @ 50 mls/hr TPN CONT IV ; Start 07/10/19 at 22:00; Stop 07/10/19 at 14:17; Status DC Sodium Chloride 90 meq/Potassium Chloride 15 meq/ Potassium Phosphate 10 mmol/ Magnesium Sulfate 10 meq/Calcium Gluconate 20 meq/ Multivitamins 10 ml/Chromium/ Copper/Manganese/ Seleni/Zn 0.5 ml/ Total Parenteral Nutrition/Amino Acids /Dextrose/ Fat Emulsion Intravenous 1,200 ml @ 50 mls/hr TPN CONT IV Last administered on 07/10/19at 23:29; Start 07/10/19 at 22:00; Stop 07/11/19 at 21:59; Status DC Sodium Chloride 1,000 ml @ 1,000 mls/hr Q1H PRN IV hypotension; Start 07/11/19 at 07:28; Stop 07/11/19 at 13:27; Status DC Albumin Human 200 ml @ 200 mls/hr 1X ONCE IV Last administered on 07/11/19at 08:51; Start 07/11/19 at 07:30; Stop 07/11/19 at 08:29; Status DC Diphenhydramine HCl (Benadryl) 25 mg 1X PRN PRN IV ITCHING; Start 07/11/19 at 07:30; Stop 07/12/19 at 07:29; Status DC Diphenhydramine HCl (Benadryl) 25 mg 1X PRN PRN IV ITCHING; Start 07/11/19 at 07:30; Stop 07/12/19 at 07:29; Status DC Sodium Chloride 1,000 ml @ 400 mls/hr Q2H30M PRN IV PATENCY; Start 07/11/19 at 07:28; Stop 07/11/19 at 19:27; Status DC Info (PHARMACY MONITORING -- do not chart) 1 each PRN DAILY PRN MC SEE COMMENTS; Start 07/11/19 at 07:30; Stop 07/22/19 at 13:01; Status DC Metronidazole 100 ml @ 100 mls/hr Q6HRS IV Last administered on 07/27/19at 06: 26; Start 07/11/19 at 08:30; Stop 07/27/19 at 09:58; Status DC Micafungin Sodium 100 mg/Dextrose 100 ml @ 100 mls/hr Q24H IV Last administered on 08/18/19at 08:18; Start 07/11/19 at 09:00; Stop 08/18/19 at 20:58; Status DC Propofol 0 ml @ As Directed STK-MED ONCE IV ; Start 07/11/19 at 07:53; Stop 07/11/19 at 07:53; Status DC Etomidate (Amidate) 20 mg STK-MED ONCE IV ; Start 07/11/19 at 07:53; Stop 07/11/19 at 07:54; Status DC Midazolam HCl (Versed) 5 mg STK-MED ONCE .ROUTE ; Start 07/11/19 at 07:57; Stop 07/11/19 at 07:57; Status DC Fentanyl Citrate 30 ml @ 0 mls/hr CONT PRN IV SEE PROTOCOL Last administered on 08/05/19at 06:12; Start 07/11/19 at 08:15; Stop 08/05/19 at 09:19; Status DC Artificial Tears (Artificial Tears) 1 drop PRN Q1HR PRN OU DRY EYE, 1st choice; Start 07/11/19 at 08:15; Stop 08/17/19 at 05:31; Status DC Midazolam HCl 50 mg/Sodium Chloride 50 ml @ 0 mls/hr CONT PRN IV SEE PROTOCOL Last administered on 07/14/19at 22:39; Start 07/11/19 at 08:15; Stop 07/16/19 at 15:59; Status DC Etomidate (Amidate) 8 mg 1X ONCE IV Last administered on 07/11/19at 08:33; Start 07/11/19 at 08:30; Stop 07/11/19 at 08:31; Status DC Succinylcholine Chloride (Anectine) 120 mg 1X ONCE IV Last administered on 07/11/19at 08:34; Start 07/11/19 at 08:30; Stop 07/11/19 at 08:31; Status DC Midazolam HCl (Versed) 5 mg 1X ONCE IV ; Start 07/11/19 at 08:30; Stop 07/11/19 at 08:31; Status DC Potassium Chloride 15 meq/ Bicarbonate Dialysis Soln w/ out KCl 5,007.5 ml @ 1,000 mls/ hr Q5H1M IV Last administered on 07/12/19at 11:11; Start 07/11/19 at 12:00; Stop 07/12/19 at 11:15; Status DC Potassium Chloride 15 meq/ Bicarbonate Dialysis Soln w/ out KCl 5,007.5 ml @ 1,000 mls/ hr Q5H1M IV Last administered on 07/12/19at 11:12; Start 07/11/19 at 12:00; Stop 07/12/19 at 11:17; Status DC Potassium Chloride 15 meq/ Bicarbonate Dialysis Soln w/ out KCl 5,007.5 ml @ 1,000 mls/ hr Q5H1M IV Last administered on 07/12/19at 11:11; Start 07/11/19 at 12:00; Stop 07/12/19 at 11:19; Status DC Sodium Chloride 90 meq/Potassium Chloride 15 meq/ Potassium Phosphate 10 mmol/ Magnesium Sulfate 10 meq/Calcium Gluconate 20 meq/ Multivitamins 10 ml/Chromium/ Copper/Manganese/ Seleni/Zn 0.5 ml/ Total Parenteral Nutrition/Amino Acids/Dextrose/ Fat Emulsion Intravenous 1,400 ml @ 58.333 mls/ hr TPN CONT IV Last administered on 07/11/19at 21:42; Start 07/11/19 at 22:00; Stop 07/12/19 at 21:59; Status DC Heparin Sodium (Porcine) (Heparin Sodium) 5,000 unit Q8HRS SQ Last administered on 07/16/19at 05:55; Start 07/11/19 at 15:00; Stop 07/16/19 at 13:28; Status DC Meropenem 500 mg/ Sodium Chloride 50 ml @ 100 mls/hr Q6HRS IV Last administered on 07/13/19at 06:00; Start 07/12/19 at 09:00; Stop 07/13/19 at 07:29; Status DC Potassium Phosphate 20 mmol/ Sodium Chloride 106.6667 ml @ 51.667 m... 1X ONCE IV Last administered on 07/12/19at 11:22; Start 07/12/19 at 10:15; Stop 07/12/19 at 12:18; Status DC Acetaminophen (Tylenol Supp) 650 mg PRN Q6HRS PRN VT MILD PAIN / TEMP > 100.3'F Last administered on 10/30/19at 17:59; Start 07/12/19 at 10:30 Potassium Chloride/Water 100 ml @ 100 mls/hr Q1H IV Last administered on 07/12/19at 12:12; Start 07/12/19 at 11:00; Stop 07/12/19 at 12:59; Status DC Potassium Chloride 20 meq/ Bicarbonate Dialysis Soln w/ out KCl 5,010 ml @ 1,000 mls/hr Q5H1M IV Last administered on 07/13/19at 08:48; Start 07/12/19 at 12:00; Stop 07/13/19 at 13:03; Status DC Potassium Chloride 20 meq/ Bicarbonate Dialysis Soln w/ out KCl 5,010 ml @ 1,000 mls/hr Q5H1M IV Last administered on 07/17/19at 14:52; Start 07/12/19 at 11:30; Stop 07/17/19 at 19:59; Status DC Potassium Chloride 20 meq/ Bicarbonate Dialysis Soln w/ out KCl 5,010 ml @ 1,000 mls/hr Q5H1M IV Last administered on 07/17/19at 14:53; Start 07/12/19 at 11:30; Stop 07/17/19 at 19:59; Status DC Sodium Chloride 90 meq/Potassium Chloride 15 meq/ Potassium Phosphate 15 mmol/ Magnesium Sulfate 10 meq/Calcium Gluconate 15 meq/ Multivitamins 10 ml/Chromium/ Copper/Manganese/ Seleni/Zn 0.5 ml/ Total Parenteral Nutrition/Amino Acids/Dextrose/ Fat Emulsion Intravenous 1,400 ml @ 58.333 mls/ hr TPN CONT IV Last administered on 07/12/19at 22:17; Start 07/12/19 at 22:00; Stop 07/13/19 at 21:59; Status DC Cefepime HCl (Maxipime) 2 gm Q12HR IVP Last administered on 07/26/19at 20:56; Start 07/13/19 at 09:00; Stop 07/27/19 at 09:58; Status DC Daptomycin 500 mg/ Sodium Chloride 50 ml @ 100 mls/hr Q48H IV Last administered on 07/29/19at 09:57; Start 07/13/19 at 08:30; Stop 07/29/19 at 10:07; Status DC Lidocaine HCl (Buffered Lidocaine 1%) 3 ml 1X ONCE INJ Last administered on 07/13/19at 10:27; Start 07/13/19 at 10:30; Stop 07/13/19 at 10:31; Status DC Potassium Phosphate 20 mmol/ Sodium Chloride 106.6667 ml @ 51.667 m... 1X ONCE IV Last administered on 07/13/19at 12:51; Start 07/13/19 at 13:00; Stop 07/13/19 at 15:03; Status DC Sodium Chloride 90 meq/Potassium Chloride 15 meq/ Potassium Phosphate 18 mmol/ Magnesium Sulfate 8 meq/Calcium Gluconate 15 meq/ Multivitamins 10 ml/Chromium/ Copper/Manganese/ Seleni/Zn 0.5 ml/ Total Parenteral Nutrition/Amino Acids/Dextrose/ Fat Emulsion Intravenous 1,400 ml @ 58.333 mls/ hr TPN CONT IV Last administered on 07/13/19at 22:16; Start 07/13/19 at 22:00; Stop 07/14/19 at 21:59; Status DC Potassium Chloride 20 meq/ Bicarbonate Dialysis Soln w/ out KCl 5,010 ml @ 1,000 mls/hr Q5H1M IV Last administered on 07/17/19at 14:54; Start 07/13/19 at 16:00; Stop 07/17/19 at 19:59; Status DC Multi-Ingred Cream/Lotion/Oil/ Oint (Artificial Tears Eye Ointment) 1 ramu PRN Q1HR PRN OU DRY EYE, 2nd choice Last administered on 08/01/19at 08:19; Start 07/13/19 at 17:30; Stop 09/21/19 at 14:39; Status DC Sodium Chloride 90 meq/Potassium Chloride 15 meq/ Potassium Phosphate 18 mmol/ Magnesium Sulfate 8 meq/Calcium Gluconate 15 meq/ Multivitamins 10 ml/Chromium/ Copper/Manganese/ Seleni/Zn 0.5 ml/ Total Parenteral Nutrition/Amino Acids/Dextrose/ Fat Emulsion Intravenous 1,400 ml @ 58.333 mls/ hr TPN CONT IV Last administered on 07/14/19at 22:00; Start 07/14/19 at 22:00; Stop 07/15/19 at 21:59; Status DC Albumin Human 500 ml @ 125 mls/hr 1X ONCE IV ; Start 07/14/19 at 14:15; Stop 07/14/19 at 18:14; Status DC Sodium Chloride 90 meq/Potassium Chloride 15 meq/ Potassium Phosphate 18 mmol/ Magnesium Sulfate 8 meq/Calcium Gluconate 15 meq/ Multivitamins 10 ml/Chromium/ Copper/Manganese/ Seleni/Zn 0.5 ml/ Insulin Human Regular 10 unit/ Total Parenteral Nutrition/Amino Acids/Dextrose/ Fat Emulsion Intravenous 1,400 ml @ 58.333 mls/ hr TPN CONT IV Last administered on 07/15/19at 21:43; Start 07/15/19 at 22:00; Stop 07/16/19 at 21:59; Status DC Lidocaine HCl (Buffered Lidocaine 1%) 3 ml STK-MED ONCE .ROUTE ; Start 07/13/19 at 10:00; Stop 07/15/19 at 13:57; Status DC Midazolam HCl 100 mg/Sodium Chloride 100 ml @ 7 mls/hr CONT PRN IV SEE PROTOCOL Last administered on 07/27/19at 15:35; Start 07/16/19 at 16:00; Stop 09/21/19 at 14:38; Status DC Sodium Chloride 90 meq/Potassium Chloride 15 meq/ Potassium Phosphate 18 mmol/ Magnesium Sulfate 8 meq/Calcium Gluconate 15 meq/ Multivitamins 10 ml/Chromium/ Copper/Manganese/ Seleni/Zn 0.5 ml/ Insulin Human Regular 15 unit/ Total Parent eral Nutrition/Amino Acids/Dextrose/ Fat Emulsion Intravenous 1,400 ml @ 58.333 mls/ hr TPN CONT IV Last administered on 07/16/19at 20:34; Start 07/16/19 at 22:00; Stop 07/17/19 at 21:59; Status DC Info (Icu Electrolyte Protocol) 1 ea CONT PRN PRN MC PER PROTOCOL; Start 07/17/19 at 13:15 Sodium Chloride 90 meq/Potassium Chloride 15 meq/ Potassium Phosphate 18 mmol/ Magnesium Sulfate 8 meq/Calcium Gluconate 15 meq/ Multivitamins 10 ml/Chromium/ Copper/Manganese/ Seleni/Zn 0.5 ml/ Insulin Human Regular 15 unit/ Total Parenteral Nutrition/Amino Acids/Dextrose/ Fat Emulsion Intravenous 1,400 ml @ 58.333 mls/ hr TPN CONT IV Last administered on 07/17/19at 22:05; Start 07/17/19 at 22:00; Stop 07/18/19 at 21:59; Status DC Potassium Chloride 15 meq/ Bicarbonate Dialysis Soln w/ out KCl 5,007.5 ml @ 1,000 mls/ hr Q5H1M IV Last administered on 07/20/19at 18:14; Start 07/17/19 at 20:00; Stop 07/21/19 at 13:08; Status DC Potassium Chloride 15 meq/ Bicarbonate Dialysis Soln w/ out KCl 5,007.5 ml @ 1,000 mls/ hr Q5H1M IV Last administered on 07/20/19at 18:14; Start 07/17/19 at 20:00; Stop 07/21/19 at 13:08; Status DC Potassium Chloride 15 meq/ Bicarbonate Dialysis Soln w/ out KCl 5,007.5 ml @ 1,000 mls/ hr Q5H1M IV Last administered on 07/20/19at 18:14; Start 07/17/19 at 20:00; Stop 07/21/19 at 13:08; Status DC Iohexol (Omnipaque 240 Mg/ml) 30 ml 1X ONCE PO Last administered on 07/18/19at 11:30; Start 07/18/19 at 11:30; Stop 07/18/19 at 11:33; Status DC Info (CONTRAST GIVEN -- Rx MONITORING) 1 each PRN DAILY PRN MC SEE COMMENTS; Start 07/18/19 at 11:45; Stop 07/20/19 at 11:44; Status DC Sodium Chloride 90 meq/Potassium Chloride 15 meq/ Potassium Phosphate 18 mmol/ Magnesium Sulfate 8 meq/Calcium Gluconate 15 meq/ Multivitamins 10 ml/Chromium/ Copper/Manganese/ Seleni/Zn 0.5 ml/ Insulin Human Regular 15 unit/ Total Parenteral Nutrition/Amino Acids/Dextrose/ Fat Emulsion Intravenous 1,400 ml @ 58.333 mls/ hr TPN CONT IV Last administered on 07/18/19at 21:47; Start 07/18/19 at 22:00; Stop 07/19/19 at 21:59; Status DC Sodium Chloride 90 meq/Potassium Chloride 15 meq/ Potassium Phosphate 18 mmol/ Magnesium Sulfate 8 meq/Calcium Gluconate 15 meq/ Multivitamins 10 ml/Chromium/ Copper/Manganese/ Seleni/Zn 0.5 ml/ Insulin Human Regular 20 unit/ Total Parenteral Nutrition/Amino Acids/Dextrose/ Fat Emulsion Intravenous 1,400 ml @ 58.333 mls/ hr TPN CONT IV Last administered on 07/19/19at 21:36; Start 07/19/19 at 22:00; Stop 07/20/19 at 21:59; Status DC Alteplase, Recombinant (Cathflo For Central Catheter Clearance) 1 mg 1X ONCE INT CAT Last administered on 07/19/19at 20:03; Start 07/19/19 at 19:30; Stop 07/19/19 at 19:46; Status DC Alteplase, Recombinant (Cathflo For Central Catheter Clearance) 1 mg 1X ONCE INT CAT Last administered on 07/19/19at 22:05; Start 07/19/19 at 22:00; Stop 07/19/19 at 22:01; Status DC Sodium Chloride 90 meq/Potassium Chloride 15 meq/ Potassium Phosphate 18 mmol/ Magnesium Sulfate 8 meq/Calcium Gluconate 15 meq/ Multivitamins 10 ml/Chromium/ Copper/Manganese/ Seleni/Zn 0.5 ml/ Insulin Human Regular 20 unit/ Total Parenteral Nutrition/Amino Acids/Dextrose/ Fat Emulsion Intravenous 1,400 ml @ 58.333 mls/ hr TPN CONT IV Last administered on 07/20/19at 21:30; Start 07/20/19 at 22:00; Stop 07/21/19 at 21:59; Status DC Dexmedetomidine HCl 400 mcg/ Sodium Chloride 100 ml @ 0 mls/hr CONT PRN IV ANXIETY / AGITATION Last administered on 09/17/19at 12:57; Start 07/21/19 at 08:15; Stop 09/17/19 at 18:31; Status DC Sodium Chloride 500 ml @ 500 mls/hr 1X PRN PRN IV ELEVATED BP, SEE COMMENTS; Start 07/21/19 at 08:15 Atropine Sulfate (ATROPINE 0.5mg SYRINGE) 0.5 mg PRN Q5MIN PRN IV SEE COMMENTS; Start 07/21/19 at 08:15 Furosemide (Lasix) 20 mg 1X ONCE IVP Last administered on 07/21/19at 08:19; Start 07/21/19 at 08:15; Stop 07/21/19 at 08:16; Status DC Lidocaine HCl (Buffered Lidocaine 1%) 3 ml STK-MED ONCE .ROUTE ; Start 07/21/19 at 08:39; Stop 07/21/19 at 08:39; Status DC Lidocaine HCl (Buffered Lidocaine 1%) 6 ml 1X ONCE INJ Last administered on 07/21/19at 09:05; Start 07/21/19 at 09:00; Stop 07/21/19 at 09:06; Status DC Sodium Chloride 90 meq/Potassium Chloride 15 meq/ Potassium Phosphate 18 mmol/ Magnesium Sulfate 8 meq/Calcium Gluconate 15 meq/ Multivitamins 10 ml/Chromium/ Copper/Manganese/ Seleni/Zn 0.5 ml/ Insulin Human Regular 20 unit/ Total Parenteral Nutrition/Amino Acids/Dextrose/ Fat Emulsion Intravenous 1,400 ml @ 58.333 mls/ hr TPN CONT IV Last administered on 07/21/19at 22:45; Start 07/21/19 at 22:00; Stop 07/22/19 at 21:59; Status DC Sodium Chloride 1,000 ml @ 1,000 mls/hr Q1H PRN IV hypotension; Start 07/22/19 at 07:30; Stop 07/22/19 at 13:29; Status DC Albumin Human 200 ml @ 200 mls/hr 1X PRN PRN IV Hypotension Last administered on 07/22/19at 09:36; Start 07/22/19 at 07:30; Stop 07/22/19 at 13:29; Status DC Sodium Chloride (Normal Saline Flush) 10 ml 1X PRN PRN IV AP catheter pack; Start 07/22/19 at 07:30; Stop 07/22/19 at 21:29; Status DC Sodium Chloride (Normal Saline Flush) 10 ml 1X PRN PRN IV LEAD BUSINESS ANALYST catheter pack; Start 07/22/19 at 07:30; Stop 07/23/19 at 07:29; Status DC Sodium Chloride 1,000 ml @ 400 mls/hr Q2H30M PRN IV PATENCY; Start 07/22/19 at 07:30; Stop 07/22/19 at 19:29; Status DC Info (PHARMACY MONITORING -- do not chart) 1 each PRN DAILY PRN MC SEE COMMENTS; Start 07/22/19 at 07:30; Stop 07/22/19 at 13:02; Status DC Info (PHARMACY MONITORING -- do not chart) 1 each PRN DAILY PRN MC SEE COMMENTS; Start 07/22/19 at 07:30; Stop 07/24/19 at 12:45; Status DC Sodium Chloride 90 meq/Potassium Chloride 15 meq/ Potassium Phosphate 10 mmol/ Magnesium Sulfate 8 meq/Calcium Gluconate 15 meq/ Multivitamins 10 ml/Chromium/ Copper/Manganese/ Seleni/Zn 0.5 ml/ Insulin Human Regular 25 unit/ Total Parenteral Nutrition/Amino Acids/Dextrose/ Fat Emulsion Intravenous 1,400 ml @ 58.333 mls/ hr TPN CONT IV Last administered on 07/22/19at 22:19; Start 07/22/19 at 22:00; Stop 07/23/19 at 21:59; Status DC Heparin Sodium (Porcine) (Heparin Sodium) 5,000 unit Q12HR SQ Last administered on 08/14/19at 08:59; Start 07/22/19 at 21:00; Stop 08/14/19 at 10:05; Status DC Ondansetron HCl (Zofran) 4 mg PRN Q6HRS PRN IV NAUSEA/VOMITING; Start 07/25/19 at 07:00; Stop 07/26/19 at 06:59; Status DC Fentanyl Citrate (Fentanyl 2ml Vial) 25 mcg PRN Q5MIN PRN IV MILD PAIN 1-3; Start 07/25/19 at 07:00; Stop 07/26/19 at 06:59; Status DC Fentanyl Citrate (Fentanyl 2ml Vial) 50 mcg PRN Q5MIN PRN IV MODERATE TO SEVERE PAIN; Start 07/25/19 at 07:00; Stop 07/26/19 at 06:59; Status DC Ringer's Solution 1,000 ml @ 30 mls/hr Q24H IV ; Start 07/25/19 at 07:00; Stop 07/25/19 at 18:59; Status DC Lidocaine HCl (Xylocaine-Mpf 1% 2ml Vial) 2 ml PRN 1X PRN ID PRIOR TO IV START; Start 07/25/19 at 07:00; Stop 07/26/19 at 06:59; Status DC Prochlorperazine Edisylate (Compazine) 5 mg PACU PRN PRN IV NAUSEA, MRX1; Start 07/25/19 at 07:00; Stop 07/26/19 at 06:59; Status DC Sodium Chloride 1,000 ml @ 1,000 mls/hr Q1H PRN IV hypotension; Start 07/23/19 at 09:10; Stop 07/23/19 at 15:09; Status DC Albumin Human 200 ml @ 200 mls/hr 1X PRN PRN IV Hypotension Last administered on 07/23/19at 10:10; Start 07/23/19 at 09:15; Stop 07/23/19 at 15:14; Status DC Sodium Chloride 1,000 ml @ 400 mls/hr Q2H30M PRN IV PATENCY; Start 07/23/19 at 09:10; Stop 07/23/19 at 21:09; Status DC Info (PHARMACY MONITORING -- do not chart) 1 each PRN DAILY PRN MC SEE COMMENTS; Start 07/23/19 at 09:15; Stop 07/24/19 at 12:45; Status DC Info (PHARMACY MONITORING -- do not chart) 1 each PRN DAILY PRN MC SEE COMMENTS; Start 07/23/19 at 09:15; Stop 07/24/19 at 12:45; Status DC Sodium Chloride 90 meq/Potassium Chloride 15 meq/ Potassium Phosphate 10 mmol/ Magnesium Sulfate 8 meq/Calcium Gluconate 15 meq/ Multivitamins 10 ml/Chromium/ Copper/Manganese/ Seleni/Zn 0.5 ml/ Insulin Human Regular 25 unit/ Total Parenteral Nutrition/Amino Acids/Dextrose/ Fat Emulsion Intravenous 1,400 ml @ 58.333 mls/ hr TPN CONT IV Last administered on 07/23/19at 22:10; Start 07/23/19 at 22:00; Stop 07/24/19 at 21:59; Status DC Magnesium Sulfate 50 ml @ 25 mls/hr PRN DAILY PRN IV for Mag < 1.7 on am labs Last administered on 10/06/19at 10:57; Start 07/24/19 at 09:15 Sodium Chloride 90 meq/Potassium Chloride 15 meq/ Potassium Phosphate 10 mmol/ Magnesium Sulfate 8 meq/Calcium Gluconate 15 meq/ Multivitamins 10 ml/Chromium/ Copper/Manganese/ Seleni/Zn 0.5 ml/ Insulin Human Regular 25 unit/ Total Parenteral Nutrition/Amino Acids/Dextrose/ Fat Emulsion Intravenous 1,400 ml @ 58.333 mls/ hr TPN CONT IV Last administered on 07/24/19at 21:20; Start 07/24/19 at 22:00; Stop 07/25/19 at 21:59; Status DC Sodium Chloride 1,000 ml @ 1,000 mls/hr Q1H PRN IV hypotension; Start 07/24/19 at 12:23; Stop 07/24/19 at 18:22; Status DC Albumin Human 200 ml @ 200 mls/hr 1X ONCE IV Last administered on 07/24/19at 13:34; Start 07/24/19 at 12:30; Stop 07/24/19 at 13:29; Status DC Diphenhydramine HCl (Benadryl) 25 mg 1X PRN PRN IV ITCHING; Start 07/24/19 at 12:30; Stop 07/25/19 at 12:29; Status DC Diphenhydramine HCl (Benadryl) 25 mg 1X PRN PRN IV ITCHING; Start 07/24/19 at 12:30; Stop 07/25/19 at 12:29; Status DC Info (PHARMACY MONITORING -- do not chart) 1 each PRN DAILY PRN MC SEE COMMENTS; Start 07/24/19 at 12:30; Status Cancel Bupivacaine HCl/ Epinephrine Bitart (Sensorcain-Epi 0.5%-1:[id number] Mpf) 30 ml STK-MED ONCE .ROUTE Last administered on 07/25/19at 11:44; Start 07/25/19 at 11:00; Stop 07/25/19 at 11:01; Status DC Cellulose (Surgicel Fibrillar 1x2) 1 each STK-MED ONCE .ROUTE ; Start 07/25/19 at 11:00; Stop 07/25/19 at 11:01; Status DC Sodium Chloride 90 meq/Potassium Chloride 15 meq/ Potassium Phosphate 10 mmol/ Magnesium Sulfate 12 meq/Calcium Gluconate 15 meq/ Multivitamins 10 ml/Chromium/ Copper/Manganese/ Seleni/Zn 0.5 ml/ Insulin Human Regular 25 unit/ Total Parenteral Nutrition/Amino Acids/Dextrose/ Fat Emulsion Intravenous 1,400 ml @ 58.333 mls/ hr TPN CONT IV Last administered on 07/25/19at 22:24; Start 07/25/19 at 22:00; Stop 07/26/19 at 21:59; Status DC Propofol 20 ml @ As Directed STK-MED ONCE IV ; Start 07/25/19 at 11:07; Stop 07/25/19 at 11:07; Status DC Cellulose (Surgicel Hemostat 4x8) 1 each STK-MED ONCE .ROUTE Last administered on 07/25/19at 11:44; Start 07/25/19 at 11:55; Stop 07/25/19 at 11:56; Status DC Sevoflurane (Ultane) 60 ml STK-MED ONCE IH ; Start 07/25/19 at 12:46; Stop 07/25/19 at 12:46; Status DC Sodium Chloride 1,000 ml @ 1,000 mls/hr Q1H PRN IV hypotension; Start 07/25/19 at 13:51; Stop 07/25/19 at 19:50; Status DC Albumin Human 200 ml @ 200 mls/hr 1X PRN PRN IV Hypotension Last administered on 07/25/19at 14:51; Start 07/25/19 at 14:00; Stop 07/25/19 at 19:59; Status DC Diphenhydramine HCl (Benadryl) 25 mg 1X PRN PRN IV ITCHING; Start 07/25/19 at 14:00; Stop 07/26/19 at 13:59; Status DC Diphenhydramine HCl (Benadryl) 25 mg 1X PRN PRN IV ITCHING; Start 07/25/19 at 14:00; Stop 07/26/19 at 13:59; Status DC Sodium Chloride 1,000 ml @ 400 mls/hr Q2H30M PRN IV PATENCY; Start 07/25/19 at 13:51; Stop 07/26/19 at 01:50; Status DC Info (PHARMACY MONITORING -- do not chart) 1 each PRN DAILY PRN MC SEE COMMENTS; Start 07/25/19 at 14:00; Stop 07/28/19 at 08:16; Status DC Heparin Sodium (Porcine) (Hep Lock Adult) 500 unit STK-MED ONCE IVP ; Start 07/26/19 at 09:29; Stop 07/26/19 at 09:30; Status DC Sodium Chloride 1,000 ml @ 1,000 mls/hr Q1H PRN IV hypotension; Start 07/26/19 at 10:43; Stop 07/26/19 at 16:42; Status DC Sodium Chloride 1,000 ml @ 400 mls/hr Q2H30M PRN IV PATENCY; Start 07/26/19 at 10:43; Stop 07/26/19 at 22:42; Status DC Info (PHARMACY MONITORING -- do not chart) 1 each PRN DAILY PRN MC SEE COMMENTS; Start 07/26/19 at 10:45; Status UNV Info (PHARMACY MONITORING -- do not chart) 1 each PRN DAILY PRN MC SEE COMMENTS; Start 07/26/19 at 10:45; Status UNV Sodium Chloride 90 meq/Potassium Chloride 15 meq/ Magnesium Sulfate 12 meq/Calcium Gluconate 15 meq/ Multivitamins 10 ml/Chromium/ Copper/Manganese/ Seleni/Zn 0.5 ml/ Insulin Human Regular 25 unit/ Total Parenteral Nutr ition/Amino Acids/Dextrose/ Fat Emulsion Intravenous 1,400 ml @ 58.333 mls/ hr TPN CONT IV Last administered on 07/26/19at 22:13; Start 07/26/19 at 22:00; Stop 07/27/19 at 21:59; Status DC Sodium Chloride 1,000 ml @ 1,000 mls/hr Q1H PRN IV hypotension; Start 07/27/19 at 07:50; Stop 07/27/19 at 13:49; Status DC Albumin Human 200 ml @ 200 mls/hr 1X ONCE IV ; Start 07/27/19 at 08:00; Stop 07/27/19 at 08:53; Status DC Diphenhydramine HCl (Benadryl) 25 mg 1X PRN PRN IV ITCHING; Start 07/27/19 at 08:00; Stop 07/28/19 at 07:59; Status DC Diphenhydramine HCl (Benadryl) 25 mg 1X PRN PRN IV ITCHING; Start 07/27/19 at 08:00; Stop 07/28/19 at 07:59; Status DC Info (PHARMACY MONITORING -- do not chart) 1 each PRN DAILY PRN MC SEE COMMENTS; Start 07/27/19 at 08:00; Stop 07/28/19 at 08:16; Status DC Albumin Human 50 ml @ 50 mls/hr 1X ONCE IV ; Start 07/27/19 at 08:53; Stop 07/27/19 at 08:56; Status DC Albumin Human 200 ml @ 50 mls/hr PRN 1X PRN IV HYPOTENSION Last administered on 08/02/19at 11:54; Start 07/27/19 at 09:00; Stop 09/08/19 at 11:14; Status DC Meropenem 500 mg/ Sodium Chloride 50 ml @ 100 mls/hr Q12H IV Last administered on 08/16/19at 10:45; Start 07/27/19 at 10:00; Stop 08/16/19 at 12:37; Status DC Sodium Chloride 90 meq/Magnesium Sulfate 12 meq/ Calcium Gluconate 15 meq/ Multivitamins 10 ml/Chromium/ Copper/Manganese/ Seleni/Zn 0.5 ml/ Insulin Human Regular 25 unit/ Total Parenteral Nutrition/Amino Acids/Dextrose/ Fat Emulsion Intravenous 1,400 ml @ 58.333 mls/ hr TPN CONT IV Last administered on 07/27/19at 21:41; Start 07/27/19 at 22:00; Stop 07/28/19 at 21:59; Status DC Sodium Chloride 1,000 ml @ 1,000 mls/hr Q1H PRN IV hypotension; Start 07/28/19 at 07:58; Stop 07/28/19 at 13:57; Status DC Albumin Human 200 ml @ 200 mls/hr 1X PRN PRN IV Hypotension Last administered on 07/28/19at 09:30; Start 07/28/19 at 08:00; Stop 07/28/19 at 13:59; Status DC Sodium Chloride 1,000 ml @ 400 mls/hr Q2H30M PRN IV PATENCY; Start 07/28/19 at 07:58; Stop 07/28/19 at 19:57; Status DC Info (PHARMACY MONITORING -- do not chart) 1 each PRN DAILY PRN MC SEE COMMENTS; Start 07/28/19 at 08:00; Status Cancel Info (PHARMACY MONITORING -- do not chart) 1 each PRN DAILY PRN MC SEE COMMENTS; Start 07/28/19 at 08:15; Status UNV Sodium Chloride 90 meq/Potassium Phosphate 5 mmol/ Magnesium Sulfate 12 meq/Calcium Gluconate 15 meq/ Multivitamins 10 ml/Chromium/ Copper/Manganese/ Seleni/Zn 0.5 ml/ Insulin Human Regular 30 unit/ Total Parenteral Nutrition/Amino Acids/Dextrose/ Fat Emulsion Intravenous 1,400 ml @ 58.333 mls/ hr TPN CONT IV Last administered on 07/28/19at 22:08; Start 07/28/19 at 22:00; Stop 07/29/19 at 21:59; Status DC Linezolid/Dextrose 300 ml @ 300 mls/hr Q12HR IV Last administered on 08/08/19at 20:40; Start 07/29/19 at 11:00; Stop 08/09/19 at 08:10; Status DC Sodium Chloride 90 meq/Potassium Phosphate 15 mmol/ Magnesium Sulfate 12 meq/Calcium Gluconate 15 meq/ Multivitamins 10 ml/Chromium/ Copper/Manganese/ Seleni/Zn 0.5 ml/ Insulin Human Regular 30 unit/ Total Parenteral Nutrition/Amino Acids/Dextrose/ Fat Emulsion Intravenous 1,400 ml @ 58.333 mls/ hr TPN CONT IV Last administered on 07/29/19at 21:49; Start 07/29/19 at 22:00; Stop 07/30/19 at 21:59; Status DC Sodium Chloride 90 meq/Potassium Phosphate 15 mmol/ Magnesium Sulfate 12 meq/Calcium Gluconate 15 meq/ Multivitamins 10 ml/Chromium/ Copper/Manganese/ Seleni/Zn 0.5 ml/ Insulin Human Regular 40 unit/ Total Parenteral Nutrition/Amino Acids/Dextrose/ Fat Emulsion Intravenous 1,400 ml @ 58.333 mls/ hr TPN CONT IV Last administered on 07/30/19at 21:21; Start 07/30/19 at 22:00; Stop 07/31/19 at 21:59; Status DC Sodium Chloride 1,000 ml @ 1,000 mls/hr Q1H PRN IV hypotension; Start 07/30/19 at 13:26; Stop 07/30/19 at 19:25; Status DC Albumin Human 200 ml @ 200 mls/hr 1X PRN PRN IV Hypotension Last administered on 07/30/19at 15:00; Start 07/30/19 at 13:30; Stop 07/30/19 at 19:29; Status DC Sodium Chloride (Normal Saline Flush) 10 ml 1X PRN PRN IV AP catheter pack; Start 07/30/19 at 13:30; Stop 07/31/19 at 13:29; Status DC Sodium Chloride (Normal Saline Flush) 10 ml 1X PRN PRN IV LEAD BUSINESS ANALYST catheter pack; Start 07/30/19 at 13:30; Stop 07/31/19 at 13:29; Status DC Sodium Chloride 1,000 ml @ 400 mls/hr Q2H30M PRN IV PATENCY; Start 07/30/19 at 13:26; Stop 07/31/19 at 01:25; Status DC Info (PHARMACY MONITORING -- do not chart) 1 each PRN DAILY PRN MC SEE COMMENTS; Start 07/30/19 at 13:30; Stop 07/30/19 at 13:33; Status DC Info (PHARMACY MONITORING -- do not chart) 1 each PRN DAILY PRN MC SEE COMMENTS; Start 07/30/19 at 13:30; Stop 07/30/19 at 13:34; Status DC Sodium Chloride 90 meq/Potassium Phosphate 19 mmol/ Magnesium Sulfate 12 meq/Calcium Gluconate 15 meq/ Multivitamins 10 ml/Chromium/ Copper/Manganese/ Seleni/Zn 0.5 ml/ Insulin Human Regular 40 unit/ Total Parenteral Nutrition/Amino Acids/Dextrose/ Fat Emulsion Intravenous 1,400 ml @ 58.333 mls/ hr TPN CONT IV Last administered on 07/31/19at 21:54; Start 07/31/19 at 22:00; Stop 08/01/19 at 21:59; Status DC Sodium Chloride 1,000 ml @ 1,000 mls/hr Q1H PRN IV hypotension; Start 08/01/19 at 09:35; Stop 08/01/19 at 15:34; Status DC Albumin Human 200 ml @ 200 mls/hr 1X PRN PRN IV Hypotension; Start 08/01/19 at 09:45; Stop 08/01/19 at 15:44; Status DC Diphenhydramine HCl (Benadryl) 25 mg 1X PRN PRN IV ITCHING; Start 08/01/19 at 09:45; Stop 08/02/19 at 09:44; Status DC Diphenhydramine HCl (Benadryl) 25 mg 1X PRN PRN IV ITCHING; Start 08/01/19 at 09:45; Stop 08/02/19 at 09:44; Status DC Sodium Chloride 1,000 ml @ 400 mls/hr Q2H30M PRN IV PATENCY; Start 08/01/19 at 09:35; Stop 08/01/19 at 21:34; Status DC Info (PHARMACY MONITORING -- do not chart) 1 each PRN DAILY PRN MC SEE COMMENTS; Start 08/01/19 at 09:45; Status Cancel Sodium Chloride 100 meq/Potassium Phosphate 19 mmol/ Magnesium Sulfate 12 meq/Calcium Gluconate 15 meq/ Multivitamins 10 ml/Chromium/ Copper/Manganese/ Seleni/Zn 0.5 ml/ Insulin Human Regular 40 unit/ Potassium Chloride 20 meq/ Total Parenteral Nutrition/Amino Acids/Dextrose/ Fat Emulsion Intravenous 1,400 ml @ 58.333 mls/ hr TPN CONT IV Last administered on 08/01/19at 22:02; Start 08/01/19 at 22:00; Stop 08/02/19 at 21:59; Status DC Furosemide (Lasix) 40 mg 1X ONCE IVP Last administered on 08/01/19at 14:39; Start 08/01/19 at 14:30; Stop 08/01/19 at 14:31; Status DC Metronidazole 100 ml @ 100 mls/hr Q8HRS IV Last administered on 08/09/19at 06:04; Start 08/02/19 at 10:00; Stop 08/09/19 at 08:10; Status DC Sodium Chloride 1,000 ml @ 1,000 mls/hr Q1H PRN IV hypotension; Start 08/02/19 at 08:00; Stop 08/02/19 at 13:59; Status DC Albumin Human 200 ml @ 200 mls/hr 1X PRN PRN IV Hypotension; Start 08/02/19 at 08:00; Stop 08/02/19 at 13:59; Status DC Sodium Chloride 1,000 ml @ 400 mls/hr Q2H30M PRN IV PATENCY; Start 08/02/19 at 08:00; Stop 08/02/19 at 19:59; Status DC Info (PHARMACY MONITORING -- do not chart) 1 each PRN DAILY PRN MC SEE COMMENTS; Start 08/02/19 at 11:30; Status UNV Info (PHARMACY MONITORING -- do not chart) 1 each PRN DAILY PRN MC SEE COMMENTS; Start 08/02/19 at 11:30; Stop 08/04/19 at 12:13; Status DC Sodium Chloride 100 meq/Potassium Phosphate 19 mmol/ Magnesium Sulfate 12 meq/Ca lcium Gluconate 15 meq/ Multivitamins 10 ml/Chromium/ Copper/Manganese/ Seleni/Zn 0.5 ml/ Insulin Human Regular 40 unit/ Potassium Chloride 20 meq/ Total Parenteral Nutrition/Amino Acids/Dextrose/ Fat Emulsion Intravenous 1,400 ml @ 58.333 mls/ hr TPN CONT IV Last administered on 08/02/19at 21:52; Start 08/02/19 at 22:00; Stop 08/03/19 at 21:59; Status DC Sodium Chloride (Normal Saline Flush) 10 ml QSHIFT PRN IV AFTER MEDS AND BLOOD DRAWS; Start 08/02/19 at 15:00; Stop 08/30/19 at 11:27; Status DC Sodium Chloride (Normal Saline Flush) 10 ml PRN Q5MIN PRN IV AFTER MEDS AND BLOOD DRAWS; Start 08/02/19 at 15:00 Sodium Chloride (Normal Saline Flush) 20 ml PRN Q5MIN PRN IV AFTER MEDS AND BLOOD DRAWS; Start 08/02/19 at 15:00 Sodium Chloride 100 meq/Potassium Phosphate 19 mmol/ Magnesium Sulfate 12 meq/Calcium Gluconate 15 meq/ Multivitamins 10 ml/Chromium/ Copper/Manganese/ Seleni/Zn 0.5 ml/ Insulin Human Regular 40 unit/ Potassium Chloride 20 meq/ Total Parenteral Nutrition/Amino Acids/Dextrose/ Fat Emulsion Intravenous 1,400 ml @ 58.333 mls/ hr TPN CONT IV Last administered on 08/03/19at 21:20; Start 08/03/19 at 22:00; Stop 08/04/19 at 21:59; Status DC Lidocaine HCl (Buffered Lidocaine 1%) 3 ml STK-MED ONCE .ROUTE ; Start 08/03/19 at 13:16; Stop 08/03/19 at 13:16; Status DC Lidocaine HCl (Buffered Lidocaine 1%) 6 ml 1X ONCE INJ Last administered on 08/03/19at 13:45; Start 08/03/19 at 13:30; Stop 08/03/19 at 13:31; Status DC Albumin Human 100 ml @ 100 mls/hr 1X ONCE IV Last administered on 08/03/19at 15:41; Start 08/03/19 at 15:00; Stop 08/03/19 at 15:59; Status DC Albumin Human 50 ml @ 50 mls/hr 1X ONCE IV Last administered on 08/03/19at 15:00; Start 08/03/19 at 15:00; Stop 08/03/19 at 15:59; Status DC Info (PHARMACY MONITORING -- do not chart) 1 each PRN DAILY PRN MC SEE COMMENTS; Start 08/04/19 at 11:30; Status Cancel Info (PHARMACY MONITORING -- do not chart) 1 each PRN DAILY PRN MC SEE COMMENTS; Start 08/04/19 at 11:30; Status UNV Sodium Chloride 100 meq/Potassium Phosphate 10 mmol/ Magnesium Sulfate 12 meq/Calcium Gluconate 15 meq/ Multivitamins 10 ml/Chromium/ Copper/Manganese/ Seleni/Zn 0.5 ml/ Insulin Human Regular 35 unit/ Potassium Chloride 20 meq/ Total Parenteral Nutrition/Amino Acids/Dextrose/ Fat Emulsion Intravenous 1,400 ml @ 58.333 mls/ hr TPN CONT IV Last administered on 08/04/19at 22:10; Start 08/04/19 at 22:00; Stop 08/05/19 at 21:59; Status DC Sodium Chloride 100 meq/Potassium Phosphate 5 mmol/ Magnesium Sulfate 12 meq/Calcium Gluconate 15 meq/ Multivitamins 10 ml/Chromium/ Copper/Manganese/ Seleni/Zn 0.5 ml/ Insulin Human Regular 35 unit/ Potassium Chloride 20 meq/ Total Parenteral Nutrition/Amino Acids/Dextrose/ Fat Emulsion Intravenous 1,400 ml @ 58.333 mls/ hr TPN CONT IV Last administered on 08/05/19at 22:59; Start 08/05/19 at 22:00; Stop 08/06/19 at 21:59; Status DC Sodium Chloride 1,000 ml @ 1,000 mls/hr Q1H PRN IV hypotension; Start 08/06/19 at 08:27; Stop 08/06/19 at 14:26; Status DC Albumin Human 200 ml @ 200 mls/hr 1X PRN PRN IV Hypotension Last administered on 08/06/19at 09:18; Start 08/06/19 at 08:30; Stop 08/06/19 at 14:29; Status DC Sodium Chloride 1,000 ml @ 400 mls/hr Q2H30M PRN IV PATENCY; Start 08/06/19 at 08:27; Stop 08/06/19 at 20:26; Status DC Info (PHARMACY MONITORING -- do not chart) 1 each PRN DAILY PRN MC SEE COMMENTS; Start 08/06/19 at 08:30; Status Cancel Info (PHARMACY MONITORING -- do not chart) 1 each PRN DAILY PRN MC SEE COMMENTS; Start 08/06/19 at 08:30; Stop 08/14/19 at 13:10; Status DC Sodium Chloride 100 meq/Potassium Chloride 40 meq/ Magnesium Sulfate 15 meq/Calcium Gluconate 15 meq/ Multivitamins 10 ml/Chromium/ Copper/Manganese/ Seleni/Zn 0.5 ml/ Insulin Human Regular 35 unit/ Total Parenteral Nutrition/Amino Acids/Dextrose/ Fat Emulsion Intravenous 1,400 ml @ 58.333 mls/ hr TPN CONT IV Last administered on 08/06/19at 22:00; Start 08/06/19 at 22:00; Stop 08/07/19 at 21:59; Status DC Potassium Chloride/Water 100 ml @ 100 mls/hr 1X ONCE IV Last administered on 08/06/19at 17:28; Start 08/06/19 at 14:45; Stop 08/06/19 at 15:44; Status DC Sodium Chloride 100 meq/Potassium Chloride 40 meq/ Magnesium Sulfate 15 meq/Calcium Gluconate 15 meq/ Multivitamins 10 ml/Chromium/ Copper/Manganese/ Seleni/Zn 0.5 ml/ Insulin Human Regular 35 unit/ Total Parenteral Nutrition/Amino Acids/Dextrose/ Fat Emulsion Intravenous 1,400 ml @ 58.333 mls/ hr TPN CONT IV Last administered on 08/07/19at 22:46; Start 08/07/19 at 22:00; Stop 08/08/19 at 21:59; Status DC Sodium Chloride 100 meq/Potassium Chloride 40 meq/ Magnesium Sulfate 20 meq/Calcium Gluconate 15 meq/ Multivitamins 10 ml/Chromium/ Copper/Manganese/ Seleni/Zn 0.5 ml/ Insulin Human Regular 35 unit/ Total Parenteral Nutrition/Amino Acids/Dextrose/ Fat Emulsion Intravenous 1,400 ml @ 58.333 mls/ hr TPN CONT IV Last administered on 08/08/19at 22:31; Start 08/08/19 at 22:00; Stop 08/09/19 at 21:59; Status DC Fentanyl Citrate (Fentanyl 2ml Vial) 50 mcg PRN Q2HR PRN IVP PAIN Last administered on 08/15/19at 13:32; Start 08/08/19 at 21:00; Stop 08/16/19 at 12:53; Status DC Fentanyl Citrate (Fentanyl 2ml Vial) 25 mcg PRN Q2HR PRN IVP PAIN; Start 08/08/19 at 21:00; Stop 08/16/19 at 12:54; Status DC Enoxaparin Sodium (Lovenox 100mg Syringe) 100 mg Q12HR SQ ; Start 08/09/19 at 21:00; Status UNV Amino Acids/ Glycerin/ Electrolytes 1,000 ml @ 75 mls/hr [id number] IV ; Start 08/08/19 at 21:15; Status UNV Sodium Chloride 1,000 ml @ 1,000 mls/hr Q1H PRN IV hypotension; Start 08/09/19 at 07:56; Stop 08/09/19 at 13:55; Status DC Albumin Human 200 ml @ 200 mls/hr 1X PRN PRN IV Hypotension Last administered on 08/09/19at 08:40; Start 08/09/19 at 08:00; Stop 08/09/19 at 13:59; Status DC Sodium Chloride 1,000 ml @ 400 mls/hr Q2H30M PRN IV PATENCY; Start 08/09/19 at 07:56; Stop 08/09/19 at 19:55; Status DC Info (PHARMACY MONITORING -- do not chart) 1 each PRN DAILY PRN MC SEE COMMENTS; Start 08/09/19 at 08:00; Status UNV Info (PHARMACY MONITORING -- do not chart) 1 each PRN DAILY PRN MC SEE COMMENTS; Start 08/09/19 at 08:00; Status UNV Daptomycin 430 mg/ Sodium Chloride 50 ml @ 100 mls/hr Q24H IV Last administered on 08/09/19at 12:35; Start 08/09/19 at 09:00; Stop 08/09/19 at 12:49; Status DC Sodium Chloride 100 meq/Potassium Chloride 40 meq/ Magnesium Sulfate 20 meq/Calcium Gluconate 15 meq/ Multivitamins 10 ml/Chromium/ Copper/Manganese/ Seleni/Zn 0.5 ml/ Insulin Human Regular 35 unit/ Total Parenteral Nutrition/Amino Acids/Dextrose/ Fat Emulsion Intravenous 1,400 ml @ 58.333 mls/ hr TPN CONT IV Last administered on 08/09/19at 21:26; Start 08/09/19 at 22:00; Stop 08/10/19 at 21:59; Status DC Daptomycin 430 mg/ Sodium Chloride 50 ml @ 100 mls/hr Q48H IV ; Start 08/11/19 at 09:00; Stop 08/10/19 at 11:55; Status DC Sodium Chloride 100 meq/Potassium Chloride 40 meq/ Magnesium Sulfate 20 meq/Calcium Gluconate 15 meq/ Multivitamins 10 ml/Chromium/ Copper/Manganese/ Seleni/Zn 0.5 ml/ Insulin Human Regular 35 unit/ Total Parenteral Nutrition/Amino Acids/Dextrose/ Fat Emulsion Intravenous 1,400 ml @ 58.333 mls/ hr TPN CONT IV Last administered on 08/10/19at 22:27; Start 08/10/19 at 22:00; Stop 08/11/19 at 21:59; Status DC Daptomycin 430 mg/ Sodium Chloride 50 ml @ 100 mls/hr Q24H IV Last administered on 08/12/19at 15:07; Start 08/10/19 at 13:00; Stop 08/13/19 at 13:15; Status DC Sodium Chloride 100 meq/Potassium Chloride 40 meq/ Magnesium Sulfate 20 meq/ Calcium Gluconate 10 meq/ Multivitamins 10 ml/Chromium/ Copper/Manganese/ Seleni/Zn 0.5 ml/ Insulin Human Regular 35 unit/ Total Parenteral Nutrition/Amino Acids/Dextrose/ Fat Emulsion Intravenous 1,400 ml @ 58.333 mls/ hr TPN CONT IV Last administered on 08/12/19at 00:06; Start 08/11/19 at 22:00; Stop 08/12/19 at 21:59; Status DC Alteplase, Recombinant (Cathflo For Central Catheter Clearance) 1 mg 1X ONCE INT CAT Last administered on 08/12/19at 11:44; Start 08/12/19 at 10:45; Stop 08/12/19 at 10:46; Status DC Ondansetron HCl (Zofran) 4 mg PRN Q6HRS PRN IV NAUSEA/VOMITING; Start 08/15/19 at 07:00; Stop 08/16/19 at 06:59; Status DC Fentanyl Citrate (Fentanyl 2ml Vial) 25 mcg PRN Q5MIN PRN IV MILD PAIN 1-3; Start 08/15/19 at 07:00; Stop 08/16/19 at 06:59; Status DC Fentanyl Citrate (Fentanyl 2ml Vial) 50 mcg PRN Q5MIN PRN IV MODERATE TO SEVERE PAIN Last administered on 08/15/19at 10:17; Start 08/15/19 at 07:00; Stop 08/16/19 at 06:59; Status DC Ringer's Solution 1,000 ml @ 30 mls/hr Q24H IV ; Start 08/15/19 at 07:00; Stop 08/15/19 at 18:59; Status DC Lidocaine HCl (Xylocaine-Mpf 1% 2ml Vial) 2 ml PRN 1X PRN ID PRIOR TO IV START; Start 08/15/19 at 07:00; Stop 08/16/19 at 06:59; Status DC Prochlorperazine Edisylate (Compazine) 5 mg PACU PRN PRN IV NAUSEA, MRX1; Start 08/15/19 at 07:00; Stop 08/16/19 at 06:59; Status DC Sodium Acetate 50 meq/Potassium Acetate 55 meq/ Magnesium Sulfate 20 meq/Calcium Gluconate 10 meq/ Multivitamins 10 ml/Chromium/ Copper/Manganese/ Seleni/Zn 0.5 ml/ Insulin Human Regular 35 unit/ Total Parenteral Nutrition/Amino Acids/Dextrose/ Fat Emulsion Intravenous 1,400 ml @ 58.333 mls/ hr TPN CONT IV ; Start 08/12/19 at 22:00; Stop 08/12/19 at 14:15; Status DC Sodium Acetate 50 meq/Potassium Acetate 55 meq/ Magnesium Sulfate 20 meq/Calcium Gluconate 10 meq/ Multivitamins 10 ml/Chromium/ Copper/Manganese/ Seleni/Zn 0.5 ml/ Insulin Human Regular 35 unit/ Total Parenteral Nutrition/Amino Acids/Dextrose/ Fat Emulsion Intravenous 1,800 ml @ 75 mls/hr TPN CONT IV Last administered on 08/12/19at 22:38; Start 08/12/19 at 22:00; Stop 08/13/19 at 21:59; Status DC Sodium Chloride 1,000 ml @ 1,000 mls/hr Q1H PRN IV hypotension; Start 08/12/19 at 15:31; Stop 08/12/19 at 21:30; Status DC Diphenhydramine HCl (Benadryl) 25 mg 1X PRN PRN IV ITCHING; Start 08/12/19 at 15:45; Stop 08/13/19 at 15:44; Status DC Diphenhydramine HCl (Benadryl) 25 mg 1X PRN PRN IV ITCHING; Start 08/12/19 at 15:45; Stop 08/13/19 at 15:44; Status DC Sodium Chloride 1,000 ml @ 400 mls/hr Q2H30M PRN IV PATENCY; Start 08/12/19 at 15:31; Stop 08/13/19 at 03:30; Status DC Info (PHARMACY MONITORING -- do not chart) 1 each PRN DAILY PRN MC SEE COMMENTS; Start 08/12/19 at 15:45; Stop 09/13/19 at 14:14; Status DC Sodium Acetate 50 meq/Potassium Acetate 55 meq/ Magnesium Sulfate 20 meq/Calcium Gluconate 10 meq/ Multivitamins 10 ml/Chromium/ Copper/Manganese/ Seleni/Zn 0.5 ml/ Insulin Human Regular 35 unit/ Total Parenteral Nutrition/Amino Acids/Dextrose/ Fat Emulsion Intravenous 1,800 ml @ 75 mls/hr TPN CONT IV Last administered on 08/13/19at 22:03; Start 08/13/19 at 22:00; Stop 08/14/19 at 21:59; Status DC Daptomycin 430 mg/ Sodium Chloride 50 ml @ 100 mls/hr Q24H IV Last administered on 08/18/19at 13:00; Start 08/13/19 at 13:00; Stop 08/18/19 at 20:58; Status DC Heparin Sodium (Porcine) 1000 unit/Sodium Chloride 1,001 ml @ 1,001 mls/hr 1X ONCE IRR ; Start 08/15/19 at 06:00; Stop 08/15/19 at 06:59; Status DC Potassium Acetate 55 meq/Magnesium Sulfate 20 meq/ Calcium Gluconate 10 meq/ Multivitamins 10 ml/Chromium/ Copper/Manganese/ Seleni/Zn 0.5 ml/ Insulin Human Regular 35 unit/ Total Parenteral Nutrition/Amino Acids/Dextrose/ Fat Emulsion Intravenous 1,920 ml @ 80 mls/hr TPN CONT IV Last administered on 08/14/19at 22:10; Start 08/14/19 at 22:00; Stop 08/15/19 at 21:59; Status DC Dexamethasone Sodium Phosphate (Decadron) 4 mg STK-MED ONCE .ROUTE ; Start 08/15/19 at 10:56; Stop 08/15/19 at 10:57; Status DC Ondansetron HCl (Zofran) 4 mg STK-MED ONCE .ROUTE ; Start 08/15/19 at 10:56; Stop 08/15/19 at 10:57; Status DC Rocuronium Gaston (Zemuron) 50 mg STK-MED ONCE .ROUTE ; Start 08/15/19 at 10:56; Stop 08/15/19 at 10:57; Status DC Fentanyl Citrate (Fentanyl 2ml Vial) 100 mcg STK-MED ONCE .ROUTE ; Start 08/15/19 at 10:56; Stop 08/15/19 at 10:57; Status DC Bupivacaine HCl/ Epinephrine Bitart (Sensorcain-Epi 0.5%-1:[id number] Mpf) 30 ml STK-MED ONCE .ROUTE Last administered on 08/15/19at 12:01; Start 08/15/19 at 10:58; Stop 08/15/19 at 10:58; Status DC Cellulose (Surgicel Hemostat 2x14) 1 each STK-MED ONCE .ROUTE ; Start 08/15/19 at 10:58; Stop 08/15/19 at 10:59; Status DC Iohexol (Omnipaque 300 Mg/ml) 50 ml STK-MED ONCE .ROUTE ; Start 08/15/19 at 10:58; Stop 08/15/19 at 10:59; Status DC Cellulose (Surgicel Hemostat 4x8) 1 each STK-MED ONCE .ROUTE ; Start 08/15/19 at 10:58; Stop 08/15/19 at 10:59; Status DC Bisacodyl (Dulcolax Supp) 10 mg STK-MED ONCE .ROUTE ; Start 08/15/19 at 10:59; Stop 08/15/19 at 10:59; Status DC Heparin Sodium (Porcine) 1000 unit/Sodium Chloride 1,001 ml @ 1,001 mls/hr 1X ONCE IRR ; Start 08/15/19 at 12:00; Stop 08/15/19 at 12:59; Status DC Propofol 20 ml @ As Directed STK-MED ONCE IV ; Start 08/15/19 at 11:05; Stop 08/15/19 at 11:05; Status DC Sevoflurane (Ultane) 90 ml STK-MED ONCE IH ; Start 08/15/19 at 11:05; Stop 08/15/19 at 11:05; Status DC Sevoflurane (Ultane) 60 ml STK-MED ONCE IH ; Start 08/15/19 at 12:26; Stop 08/15/19 at 12:27; Status DC Propofol 20 ml @ As Directed STK-MED ONCE IV ; Start 08/15/19 at 12:26; Stop 08/15/19 at 12:27; Status DC Phenylephrine HCl (PHENYLEPHRINE in 0.9% NACL PF) 1 mg STK-MED ONCE IV ; Start 08/15/19 at 12:34; Stop 08/15/19 at 12:34; Status DC Heparin Sodium (Porcine) (Heparin Sodium) 5,000 unit Q12HR SQ Last administered on 08/24/19at 20:57; Start 08/15/19 at 21:00; Stop 08/25/19 at 09:59; Status DC Sodium Chloride (Normal Saline Flush) 3 ml QSHIFT PRN IV AFTER MEDS AND BLOOD DRAWS; Start 08/15/19 at 13:45; Status Cancel Naloxone HCl (Narcan) 0.4 mg PRN Q2MIN PRN IV SEE INSTRUCTIONS Last administered on 09/24/19at 15:15; Start 08/15/19 at 13:45; Stop 10/19/19 at 16:00; Status DC Sodium Chloride 1,000 ml @ 25 mls/hr Q24H IV Last administered on 09/13/19at 13:37; Start 08/15/19 at 13:37; Stop 09/16/19 at 13:09; Status DC Naloxone HCl (Narcan) 0.4 mg PRN Q2MIN PRN IV SEE INSTRUCTIONS; Start 08/15/19 at 14:30; Status UNV Sodium Chloride 1,000 ml @ 25 mls/hr Q24H IV ; Start 08/15/19 at 14:30; Status UNV Hydromorphone HCl 30 ml @ 0 mls/hr CONT PRN PRN IV PER PROTOCOL Last administered on 08/20/19at 16:08; Start 08/15/19 at 14:30; Stop 08/22/19 at 08:55; Status DC Potassium Acetate 55 meq/Magnesium Sulfate 20 meq/ Calcium Gluconate 10 meq/ Multivitamins 10 ml/Chromium/ Copper/Manganese/ Seleni/Zn 0.5 ml/ Insulin Human Regular 35 unit/ Total Parenteral Nutrition/Amino Acids/Dextrose/ Fat Emulsion Intravenous 1,920 ml @ 80 mls/hr TPN CONT IV Last administered on 08/15/19at 22:01; Start 08/15/19 at 22:00; Stop 08/16/19 at 21:59; Status DC Bumetanide (Bumex) 2 mg [id number] IV Last administered on 08/19/19at 13:50; Start 08/16/19 at 14:00; Stop 08/20/19 at 14:10; Status DC Meropenem 1 gm/ Sodium Chloride 100 ml @ 200 mls/hr Q8HRS IV Last administered on 09/09/19at 05:53; Start 08/16/19 at 14:00; Stop 09/09/19 at 09:31; Status DC Potassium Acetate 55 meq/Magnesium Sulfate 20 meq/ Calcium Gluconate 10 meq/ Multivitamins 10 ml/Chromium/ Copper/Manganese/ Seleni/Zn 0.5 ml/ Insulin Human Regular 35 unit/ Total Parenteral Nutrition/Amino Acids/Dextrose/ Fat Emulsion Intravenous 1,920 ml @ 80 mls/hr TPN CONT IV Last administered on 08/16/19at 22:02; Start 08/16/19 at 22:00; Stop 08/17/19 at 21:59; Status DC Hydromorphone HCl (Dilaudid Standard [employer] SERVICES [employer]GER) 12 mg STK-MED ONCE IV ; Start 08/15/19 at 14:35; Stop 08/16/19 at 13:53; Status DC Artificial Tears (Artificial Tears) 1 drop PRN Q15MIN PRN OU DRY EYE Last administered on 10/11/19at 21:17; Start 08/17/19 at 05:30 Hydromorphone HCl (Dilaudid Standard [employer] SERVICES MA[employer]GER) 12 mg STK-MED ONCE IV ; Start 08/16/19 at 12:05; Stop 08/17/19 at 09:15; Status DC Potassium Acetate 65 meq/Magnesium Sulfate 20 meq/ Calcium Gluconate 10 meq/ Multivitamins 10 ml/Chromium/ Copper/Manganese/ Seleni/Zn 0.5 ml/ Insulin Human Regular 30 unit/ Total Parenteral Nutrition/Amino Acids/Dextrose/ Fat Emulsion Intravenous 1,920 ml @ 80 mls/hr TPN CONT IV Last administered on 08/17/19at 22:22; Start 08/17/19 at 22:00; Stop 08/18/19 at 21:59; Status DC Cyclobenzaprine HCl (Flexeril) 10 mg PRN Q6HRS PRN PO MUSCLE SPASMS Last administered on 10/28/19at 19:12; Start 08/18/19 at 10:45 Potassium Acetate 55 meq/Magnesium Sulfate 20 meq/ Calcium Gluconate 10 meq/ Multivitamins 10 ml/Chromium/ Copper/Manganese/ Seleni/Zn 0.5 ml/ Insulin Human Regular 30 unit/ Total Parenteral Nutrition/Amino Acids/Dextrose/ Fat Emulsion Intravenous 1,920 ml @ 80 mls/hr TPN CONT IV Last administered on 08/19/19at 01:00; Start 08/18/19 at 22:00; Stop 08/19/19 at 21:59; Status DC Magnesium Sulfate 50 ml @ 25 mls/hr 1X ONCE IV Last administered on 08/18/19at 17:18; Start 08/18/19 at 12:45; Stop 08/18/19 at 14:44; Status DC Potassium Chloride/Water 100 ml @ 100 mls/hr 1X ONCE IV Last administered on 08/19/19at 11:27; Start 08/19/19 at 12:00; Stop 08/19/19 at 12:59; Status DC Hydromorphone HCl (Dilaudid Standard [employer] SERVICES [employer]GER) 12 mg STK-MED ONCE IV ; Start 08/17/19 at 10:50; Stop 08/19/19 at 11:02; Status DC Hydromorphone HCl (Dilaudid Standard [employer]GER) 12 mg STK-MED ONCE IV ; Start 08/18/19 at 13:47; Stop 08/19/19 at 11:03; Status DC Potassium Acetate 30 meq/Magnesium Sulfate 20 meq/ Calcium Gluconate 10 meq/ Multivitamins 10 ml/Chromium/ Copper/Manganese/ Seleni/Zn 0.5 ml/ Insulin Human Regular 30 unit/ Potassium Chloride 30 meq/ Total Parenteral Nutrition/Amino Acids/Dextrose/ Fat Emulsion Intravenous 1,920 ml @ 80 mls/hr TPN CONT IV Last administered on 08/19/19at 22:34; Start 08/19/19 at 22:00; Stop 08/20/19 at 21:59; Status DC Potassium Chloride/Water 100 ml @ 100 mls/hr Q1H IV Last administered on 08/20/19at 13:05; Start 08/20/19 at 07:00; Stop 08/20/19 at 10:59; Status DC Magnesium Sulfate 50 ml @ 25 mls/hr 1X ONCE IV Last administered on 08/20/19at 10:34; Start 08/20/19 at 10:30; Stop 08/20/19 at 12:29; Status DC Potassium Chloride 75 meq/ Magnesium Sulfate 20 meq/Calcium Gluconate 10 meq/ Multivitamins 10 ml/Chromium/ Copper/Manganese/ Seleni/Zn 0.5 ml/ Insulin Human Regular 30 unit/ Total Parenteral Nutrition/Amino Acids/Dextrose/ Fat Emulsion Intravenous 1,920 ml @ 80 mls/hr TPN CONT IV Last administered on 08/20/19at 21:51; Start 08/20/19 at 22:00; Stop 08/21/19 at 22:00; Status DC Potassium Chloride 75 meq/ Magnesium Sulfate 20 meq/Calcium Gluconate 10 meq/ Multivitamins 10 ml/Chromium/ Copper/Manganese/ Seleni/Zn 0.5 ml/ Insulin Human Regular 25 unit/ Total Parenteral Nutrition/Amino Acids/Dextrose/ Fat Emulsion Intravenous 1,920 ml @ 80 mls/hr TPN CONT IV Last administered on 08/21/19at 22:04; Start 08/21/19 at 22:00; Stop 08/22/19 at 21:59; Status DC Hydromorphone HCl (Dilaudid) 0.4 mg PRN Q4HRS PRN IVP PAIN Last administered on 08/22/19at 10:57; Start 08/22/19 at 09:00; Stop 08/22/19 at 18:59; Status DC Micafungin Sodium 100 mg/Dextrose 100 ml @ 100 mls/hr Q24H IV Last administered on 09/13/19at 12:17; Start 08/22/19 at 11:00; Stop 09/14/19 at 09:59; Status DC Daptomycin 485 mg/ Sodium Chloride 50 ml @ 100 mls/hr Q24H IV Last administered on 08/29/19at 13:10; Start 08/22/19 at 11:00; Stop 08/30/19 at 07:44; Status DC Potassium Chloride 75 meq/ Magnesium Sulfate 15 meq/Calcium Gluconate 8 meq/ Multivitamins 10 ml/Chromium/ Copper/Manganese/ Seleni/Zn 0.5 ml/ Insulin Human Regular 25 unit/ Total Parenteral Nutrition/Amino Acids/Dextrose/ Fat Emulsion Intravenous 1,920 ml @ 80 mls/hr TPN CONT IV Last administered on 08/22/19at 23:08; Start 08/22/19 at 22:00; Stop 08/23/19 at 21:59; Status DC Haloperidol Lactate (Haldol Inj) 3 mg 1X ONCE IVP Last administered on 08/22/19at 14:37; Start 08/22/19 at 14:30; Stop 08/22/19 at 14:31; Status DC Hydromorphone HCl (Dilaudid) 1 mg PRN Q4HRS PRN IVP PAIN Last administered on 09/05/19at 06:25; Start 08/22/19 at 19:00; Stop 09/05/19 at 17:10; Status DC Potassium Chloride 75 meq/ Magnesium Sulfate 15 meq/Calcium Gluconate 8 meq/ Multivitamins 10 ml/Chromium/ Copper/Manganese/ Seleni/Zn 0.5 ml/ Insulin Human Regular 20 unit/ Total Parenteral Nutrition/Amino Acids/Dextrose/ Fat Emulsion Intravenous 1,920 ml @ 80 mls/hr TPN CONT IV Last administered on 08/23/19at 22:10; Start 08/23/19 at 22:00; Stop 08/24/19 at 21:59; Status DC Lidocaine HCl (Buffered Lidocaine 1%) 3 ml STK-MED ONCE .ROUTE ; Start 08/24/19 at 11:31; Stop 08/24/19 at 11:31; Status DC Lidocaine HCl (Buffered Lidocaine 1%) 3 ml STK-MED ONCE .ROUTE ; Start 08/24/19 at 12:28; Stop 08/24/19 at 12:29; Status DC Lidocaine HCl (Buffered Lidocaine 1%) 6 ml 1X ONCE INJ Last administered on 08/24/19at 12:53; Start 08/24/19 at 12:45; Stop 08/24/19 at 12:46; Status DC Potassium Chloride 75 meq/ Magnesium Sulfate 15 meq/Calcium Gluconate 8 meq/ Multivitamins 10 ml/Chromium/ Copper/Manganese/ Seleni/Zn 0.5 ml/ Insulin Human Regular 20 unit/ Total Parenteral Nutrition/Amino Acids/Dextrose/ Fat Emulsion Intravenous 1,920 ml @ 80 mls/hr TPN CONT IV Last administered on 08/24/19at 22:00; Start 08/24/19 at 22:00; Stop 08/25/19 at 21:59; Status DC Potassium Chloride 75 meq/ Magnesium Sulfate 15 meq/Calcium Gluconate 8 meq/ Multivitamins 10 ml/Chromium/ Copper/Manganese/ Seleni/Zn 0.5 ml/ Insulin Human Regular 15 unit/ Total Parenteral Nutrition/Amino Acids/Dextrose/ Fat Emulsion Intravenous 1,920 ml @ 80 mls/hr TPN CONT IV Last administered on 08/25/19at 22:28; Start 08/25/19 at 22:00; Stop 08/26/19 at 21:59; Status DC Vecuronium Gaston (Norcuron Bolus) 6 mg PRN Q6HRS PRN IV VENT ASYNCHRONY; Start 08/25/19 at 19:15; Stop 08/25/19 at 19:35; Status DC Bumetanide (Bumex) 2 mg 1X ONCE IV Last administered on 08/25/19at 22:09; Start 08/25/19 at 19:45; Stop 08/25/19 at 19:46; Status DC Lidocaine HCl (Buffered Lidocaine 1%) 3 ml STK-MED ONCE .ROUTE ; Start 08/26/19 at 07:59; Stop 08/26/19 at 07:59; Status DC Midazolam HCl (Versed) 5 mg STK-MED ONCE .ROUTE ; Start 08/26/19 at 08:36; Stop 08/26/19 at 08:36; Status DC Fentanyl Citrate (Fentanyl 5ml Vial) 250 mcg STK-MED ONCE .ROUTE ; Start 08/26/19 at 08:36; Stop 08/26/19 at 08:37; Status DC Lidocaine HCl (Buffered Lidocaine 1%) 3 ml 1X ONCE IJ Last administered on 08/26/19at 09:30; Start 08/26/19 at 09:15; Stop 08/26/19 at 09:16; Status DC Midazolam HCl (Versed) 5 mg 1X ONCE IV Last administered on 08/26/19at 09:30; Start 08/26/19 at 09:15; Stop 08/26/19 at 09:16; Status DC Fentanyl Citrate (Fentanyl 5ml Vial) 250 mcg 1X ONCE IV Last administered on 08/26/19at 09:30; Start 08/26/19 at 09:15; Stop 08/26/19 at 09:16; Status DC Bumetanide (Bumex) 2 mg DAILY IV Last administered on 09/05/19at 08:07; Start 08/26/19 at 10:00; Stop 09/05/19 at 17:15; Status DC Potassium Chloride 75 meq/ Magnesium Sulfate 15 meq/ Multivitamins 10 ml/Chromium/ Copper/Manganese/ Seleni/Zn 0.5 ml/ Insulin Human Regular 15 unit/ Total Parenteral Nutrition/Amino Acids/Dextrose/ Fat Emulsion Intravenous 1,920 ml @ 80 mls/hr TPN CONT IV Last administered on 08/26/19at 21:59; Start 08/26/19 at 22:00; Stop 08/27/19 at 21:59; Status DC Metoclopramide HCl (Reglan Vial) 10 mg PRN Q3HRS PRN IVP NAUSEA/VOMITING-3rd choice Last administered on 09/01/19at 04:25; Start 08/27/19 at 16:45 Potassium Chloride 75 meq/ Magnesium Sulfate 15 meq/ Multivitamins 10 ml/Chromium/ Copper/Manganese/ Seleni/Zn 0.5 ml/ Insulin Human Regular 15 unit/ Total Parenteral Nutrition/Amino Acids/Dextrose/ Fat Emulsion Intravenous 1,920 ml @ 80 mls/hr TPN CONT IV Last administered on 08/27/19at 22:41; Start 08/27/19 at 22:00; Stop 08/28/19 at 21:59; Status DC Magnesium Sulfate 50 ml @ 25 mls/hr 1X ONCE IV Last administered on 08/28/19at 10:44; Start 08/28/19 at 09:00; Stop 08/28/19 at 10:59; Status DC Potassium Chloride/Water 100 ml @ 100 mls/hr 1X ONCE IV Last administered on 08/28/19at 09:37; Start 08/28/19 at 09:00; Stop 08/28/19 at 09:59; Status DC Duloxetine HCl (Cymbalta) 30 mg DAILY PO Last administered on 08/29/19at 09:48; Start 08/28/19 at 14:00; Stop 08/31/19 at 10:25; Status DC Potassium Chloride 80 meq/ Magnesium Sulfate 20 meq/ Multivitamins 10 ml/Chromium/ Copper/Manganese/ Seleni/Zn 0.5 ml/ Insulin Human Regular 15 unit/ Total Parenteral Nutrition/Amino Acids/Dextrose/ Fat Emulsion Intravenous 1,920 ml @ 80 mls/hr TPN CONT IV Last administered on 08/28/19at 21:42; Start 08/28/19 at 22:00; Stop 08/29/19 at 21:59; Status DC Potassium Chloride 80 meq/ Magnesium Sulfate 20 meq/ Multivitamins 10 ml/Chromium/ Copper/Manganese/ Seleni/Zn 0.5 ml/ Insulin Human Regular 15 unit/ Total Parenteral Nutrition/Amino Acids/Dextrose/ Fat Emulsion Intravenous 1,920 ml @ 80 mls/hr TPN CONT IV Last administered on 08/29/19at 22:20; Start 08/29/19 at 22:00; Stop 08/30/19 at 21:59; Status DC Lidocaine HCl (Buffered Lidocaine 1%) 3 ml STK-MED ONCE .ROUTE ; Start 08/30/19 at 09:54; Stop 08/30/19 at 09:55; Status DC Hydromorphone HCl (Dilaudid Standard V[employer]UNTEER SERVICES MANAGER) 12 mg STK-MED ONCE IV ; Start 08/19/19 at 15:50; Stop 08/30/19 at 11:24; Status DC Potassium Chloride 80 meq/ Magnesium Sulfate 20 meq/ Multivitamins 10 ml/Chromium/ Copper/Manganese/ Seleni/Zn 0.5 ml/ Insulin Human Regular 15 unit/ Total Parenteral Nutrition/Amino Acids/Dextrose/ Fat Emulsion Intravenous 1,920 ml @ 80 mls/hr TPN CONT IV Last administered on 08/30/19at 21:40; Start 08/30/19 at 22:00; Stop 08/31/19 at 21:59; Status DC Lidocaine HCl (Buffered Lidocaine 1%) 6 ml 1X ONCE INJ Last administered on 08/30/19at 14:15; Start 08/30/19 at 14:15; Stop 08/30/19 at 14:16; Status DC Potassium Chloride 80 meq/ Magnesium Sulfate 20 meq/ Multivitamins 10 ml/Chromium/ Copper/Manganese/ Seleni/Zn 1 ml/ Insulin Human Regular 15 unit/ Total Parenteral Nutrition/Amino Acids/Dextrose/ Fat Emulsion Intravenous 1,920 ml @ 80 mls/hr TPN CONT IV Last administered on 08/31/19at 22:04; Start 08/31/19 at 22:00; Stop 09/01/19 at 21:59; Status DC Potassium Chloride/Water 100 ml @ 100 mls/hr 1X ONCE IV Last administered on 09/01/19at 11:34; Start 09/01/19 at 11:00; Stop 09/01/19 at 11:59; Status DC Potassium Chloride 90 meq/ Magnesium Sulfate 20 meq/ Multivitamins 10 ml/Chromium/ Copper/Manganese/ Seleni/Zn 1 ml/ Insulin Human Regular 15 unit/ Total Parenteral Nutrition/Amino Acids/Dextrose/ Fat Emulsion Intravenous 1,920 ml @ 80 mls/hr TPN CONT IV Last administered on 09/01/19at 22:57; Start 09/01/19 at 22:00; Stop 09/02/19 at 21:59; Status DC Potassium Chloride 90 meq/ Magnesium Sulfate 20 meq/ Multivitamins 10 ml/Chromium/ Copper/Manganese/ Seleni/Zn 1 ml/ Insulin Human Regular 15 unit/ Total Parenteral Nutrition/Amino Acids/Dextrose/ Fat Emulsion Intravenous 1,920 ml @ 80 mls/hr TPN CONT IV Last administered on 09/02/19at 22:48; Start 09/02/19 at 22:00; Stop 09/03/19 at 21:59; Status DC Potassium Chloride 90 meq/ Magnesium Sulfate 20 meq/ Multivitamins 10 ml/Chromium/ Copper/Manganese/ Seleni/Zn 1 ml/ Insulin Human Regular 15 unit/ Total Parenteral Nutrition/Amino Acids/Dextrose/ Fat Emulsion Intravenous 1,890 ml @ 78.75 mls/ hr TPN CONT IV Last administered on 09/03/19at 22:15; Start 09/03/19 at 22:00; Stop 09/04/19 at 21:59; Status DC Linezolid/Dextrose 300 ml @ 300 mls/hr Q12HR IV Last administered on 09/06/19at 21:08; Start 09/04/19 at 09:00; Stop 09/07/19 at 08:11; Status DC Daptomycin 450 mg/ Sodium Chloride 50 ml @ 100 mls/hr Q24H IV Last administered on 09/07/19at 09:25; Start 09/04/19 at 09:00; Stop 09/08/19 at 08:30; Status DC Potassium Chloride 90 meq/ Magnesium Sulfate 20 meq/ Multivitamins 10 ml/Chromium/ Copper/Manganese/ Seleni/Zn 1 ml/ Insulin Human Regular 15 unit/ Total Parenteral Nutrition/Amino Acids/Dextrose/ Fat Emulsion Intravenous 1,890 ml @ 78.75 mls/ hr TPN CONT IV Last administered on 09/04/19at 21:34; Start 09/04/19 at 22:00; Stop 09/05/19 at 21:59; Status DC Lorazepam (Ativan Inj) 2 mg STK-MED ONCE .ROUTE ; Start 09/04/19 at 14:58; Stop 09/04/19 at 14:58; Status DC Metoprolol Tartrate (Lopressor Vial) 5 mg 1X ONCE IVP Last administered on 09/04/19at 15:31; Start 09/04/19 at 15:15; Stop 09/04/19 at 15:16; Status DC Lorazepam (Ativan Inj) 2 mg 1X ONCE IVP Last administered on 09/04/19at 15:30; Start 09/04/19 at 15:15; Stop 09/04/19 at 15:16; Status DC Enoxaparin Sodium (Lovenox 40mg Syringe) 40 mg Q24H SQ Last administered on 09/23/19at 17:44; Start 09/04/19 at 17:00; Stop 09/25/19 at 06:50; Status DC Lorazepam (Ativan Inj) 1 mg PRN Q4HRS PRN IVP ANXIETY / AGITATION MILD-MOD Last administered on 09/18/19at 15:55; Start 09/04/19 at 19:15; Stop 09/20/19 at 11:45; Status DC Lorazepam (Ativan Inj) 2 mg PRN Q4HRS PRN IVP ANXIETY / AGITATION SEVERE Last administered on 09/19/19at 07:55; Start 09/04/19 at 19:15; Stop 09/20/19 at 11:45; Status DC Fentanyl Citrate (Fentanyl 2ml Vial) 50 mcg PRN Q4HRS PRN IVP SEVERE PAIN Last administered on 10/01/19at 05:15; Start 09/05/19 at 13:15; Stop 10/02/19 at 09:29; Status DC Fentanyl Citrate (Fentanyl 2ml Vial) 25 mcg PRN Q4HRS PRN IVP MODERATE PAIN Last administered on 10/01/19at 00:27; Start 09/05/19 at 13:15; Stop 10/02/19 at 09:30; Status DC Potassium Chloride 90 meq/ Magnesium Sulfate 20 meq/ Multivitamins 10 ml/ Chromium/ Copper/Manganese/ Seleni/Zn 1 ml/ Insulin Human Regular 15 unit/ Total Parenteral Nutrition/Amino Acids/Dextrose/ Fat Emulsion Intravenous 1,890 ml @ 78.75 mls/ hr TPN CONT IV Last administered on 09/05/19at 22:18; Start 09/05/19 at 22:00; Stop 09/06/19 at 21:59; Status DC Furosemide (Lasix) 40 mg 1X ONCE IVP Last administered on 09/05/19at 21:51; Start 09/05/19 at 21:45; Stop 09/05/19 at 21:48; Status DC Albumin Human 100 ml @ 100 mls/hr 1X PRN PRN IV SEE COMMENTS; Start 09/06/19 at 01:30 Furosemide (Lasix) 40 mg [id number] IVP Last administered on 09/21/19at 08:04; Start 09/06/19 at 14:00; Stop 09/21/19 at 13:07; Status DC Potassium Chloride 90 meq/ Magnesium Sulfate 20 meq/ Multivitamins 10 ml/Chromium/ Copper/Manganese/ Seleni/Zn 1 ml/ Insulin Human Regular 15 unit/ Total Parenteral Nutrition/Amino Acids/Dextrose/ Fat Emulsion Intravenous 1,800 ml @ 75 mls/hr TPN CONT IV Last administered on 09/06/19at 22:31; Start 09/06/19 at 22:00; Stop 09/07/19 at 21:59; Status DC Potassium Chloride 90 meq/ Magnesium Sulfate 20 meq/ Multivitamins 10 ml/Chromium/ Copper/Manganese/ Seleni/Zn 1 ml/ Insulin Human Regular 15 unit/ Total Parenteral Nutrition/Amino Acids/Dextrose/ Fat Emulsion Intravenous 1,800 ml @ 75 mls/hr TPN CONT IV Last administered on 09/07/19at 22:28; Start 09/07/19 at 22:00; Stop 09/08/19 at 21:59; Status DC Potassium Chloride 110 meq/ Magnesium Sulfate 20 meq/ Multivitamins 10 ml/Chromium/ Copper/Manganese/ Seleni/Zn 1 ml/ Insulin Human Regular 15 unit/ Total Parenteral Nutrition/Amino Acids/Dextrose/ Fat Emulsion Intravenous 1,800 ml @ 75 mls/hr TPN CONT IV Last administered on 09/08/19at 22:01; Start 09/07 at 22:00; Stop 09/09/19 at 21:59; Status DC Saliva Substitute (Biotene Moisturizing Mouth) 2 spray PRN Q15MIN PRN PO DRY M OUTH; Start 09/08/19 at 11:00 Potassium Chloride 110 meq/ Magnesium Sulfate 20 meq/ Multivitamins 10 ml/Chromium/ Copper/Manganese/ Seleni/Zn 1 ml/ Insulin Human Regular 15 unit/ Total Parenteral Nutrition/Amino Acids/Dextrose/ Fat Emulsion Intravenous 1,800 ml @ 75 mls/hr TPN CONT IV Last administered on 09/09/19at 22:21; Start 09/09/19 at 22:00; Stop 09/10/19 at 21:59; Status DC Potassium Chloride 110 meq/ Magnesium Sulfate 20 meq/ Multivitamins 10 ml/Chromium/ Copper/Manganese/ Seleni/Zn 1 ml/ Insulin Human Regular 15 unit/ Total Parenteral Nutrition/Amino Acids/Dextrose/ Fat Emulsion Intravenous 1,800 ml @ 75 mls/hr TPN CONT IV Last administered on 09/10/19at 22:04; Start 09/10/19 at 22:00; Stop 09/11/19 at 21:59; Status DC Potassium Chloride 110 meq/ Magnesium Sulfate 20 meq/ Multivitamins 10 ml/Chromium/ Copper/Manganese/ Seleni/Zn 1 ml/ Insulin Human Regular 15 unit/ Total Parenteral Nutrition/Amino Acids/Dextrose/ Fat Emulsion Intravenous 1,800 ml @ 75 mls/hr TPN CONT IV Last administered on 09/11/19at 22:48; Start 09/11/19 at 22:00; Stop 09/12/19 at 21:59; Status DC Potassium Chloride 70 meq/ Magnesium Sulfate 20 meq/ Multivitamins 10 ml/Chromium/ Copper/Manganese/ Seleni/Zn 1 ml/ Insulin Human Regular 15 unit/ Total Parenteral Nutrition/Amino Acids/Dextrose/ Fat Emulsion Intravenous 1,800 ml @ 75 mls/hr TPN CONT IV Last administered on 09/12/19at 21:39; Start 09/11 at 22:00; Stop 09/13/19 at 21:59; Status DC Meropenem 500 mg/ Sodium Chloride 50 ml @ 100 mls/hr Q6HRS IV Last administer ed on 09/14/19at 06:02; Start 09/12/19 at 18:00; Stop 09/14/19 at 09:59; Status DC Barium Sulfate (Varibar Thin Liquid Apple) 148 gm 1X ONCE PO ; Start 09/13/19 at 11:45; Stop 09/13/19 at 11:49; Status DC Potassium Chloride 70 meq/ Magnesium Sulfate 20 meq/ Multivitamins 10 ml/Chromium/ Copper/Manganese/ Seleni/Zn 1 ml/ Insulin Human Regular 15 unit/ Total Parenteral Nutrition/Amino Acids/Dextrose/ Fat Emulsion Intravenous 1,800 ml @ 75 mls/hr TPN CONT IV Last administered on 09/13/19at 22:27; Start at 22:00; Stop 09/14/19 at 21:59; Status DC Piperacillin Sod/ Tazobactam Sod 3.375 gm/Sodium Chloride 50 ml @ 100 mls/hr Q6HRS IV Last administered on 09/22/19at 06:10; Start 09/14/19 at 12:00; Stop 09/22/19 at 07:26; Status DC Potassium Chloride 70 meq/ Magnesium Sulfate 20 meq/ Multivitamins 10 ml/Chromium/ Copper/Manganese/ Seleni/Zn 1 ml/ Insulin Human Regular 15 unit/ T otal Parenteral Nutrition/Amino Acids/Dextrose/ Fat Emulsion Intravenous 1,800 ml @ 75 mls/hr TPN CONT IV Last administered on 09/14/19at 22:03; Start 09/14/19 at 22:00; Stop 09/15/19 at 21:59; Status DC Potassium Chloride 70 meq/ Magnesium Sulfate 20 meq/ Multivitamins 10 ml/Chromium/ Copper/Manganese/ Seleni/Zn 1 ml/ Insulin Human Regular 15 unit/ Total Parenteral Nutrition/Amino Acids/Dextrose/ Fat Emulsion Intravenous 1,800 ml @ 75 mls/hr TPN CONT IV Last administered on 09/15/19at 22:33; Start at 22:00; Stop 09/16/19 at 21:59; Status DC Potassium Chloride 70 meq/ Magnesium Sulfate 20 meq/ Multivitamins 10 ml/Gasket Supervisor mium/ Copper/Manganese/ Seleni/Zn 1 ml/ Insulin Human Regular 15 unit/ Total Parenteral Nutrition/Amino Acids/Dextrose/ Fat Emulsion Intravenous 1,800 ml @ 75 mls/hr TPN CONT IV Last administered on 09/16/19at 23:13; Start 09/16/19 at 22:00; Stop 09/17/19 at 21:59; Status DC Potassium Chloride 80 meq/ Magnesium Sulfate 20 meq/ Multivitamins 10 ml/Chromium/ Copper/Manganese/ Seleni/Zn 1 ml/ Insulin Human Regular 15 unit/ Total Parenteral Nutrition/Amino Acids/Dextrose/ Fat Emulsion Intravenous 1,800 ml @ 75 mls/hr TPN CONT IV Last administered on 09/17/19at 22:30; Start 09/17/19 at 22:00; Stop 09/18/19 at 21:59; Status DC Potassium Chloride 80 meq/ Magnesium Sulfate 20 meq/ Multivitamins 10 ml/Chromium/ Copper/Manganese/ Seleni/Zn 1 ml/ Insulin Human Regular 15 unit/ Total Parenteral Nutrition/Amino Acids/Dextrose/ Fat Emulsion Intravenous 1,800 ml @ 75 mls/hr TPN CONT IV Last administered on 09/18/19at 21:54; Start 09/18/19 at 22:00; Stop 09/19/19 at 21:59; Status DC Potassium Chloride/Water 100 ml @ 100 mls/hr 1X ONCE IV Last administered on 09/19/19at 10:15; Start 09/19/19 at 10:00; Stop 09/19/19 at 10:59; Status DC Potassium Chloride 90 meq/ Magnesium Sulfate 20 meq/ Multivitamins 10 ml/Chromium/ Copper/Manganese/ Seleni/Zn 1 ml/ Insulin Human Regular 20 unit/ Total Parenteral Nutrition/Amino Acids/Dextrose/ Fat Emulsion Intravenous 1,800 ml @ 75 mls/hr TPN CONT IV Last administered on 09/19/19at 22:28; Start 09/19/19 at 22:00; Stop 09/20/19 at 21:59; Status DC Potassium Chloride 90 meq/ Magnesium Sulfate 20 meq/ Multivitamins 10 ml/Chromium/ Copper/Manganese/ Seleni/Zn 1 ml/ Insulin Human Regular 20 unit/ Total Parenteral Nutrition/Amino Acids/Dextrose/ Fat Emulsion Intravenous 1,800 ml @ 75 mls/hr TPN CONT IV Last administered on 09/20/19at 22:08; Start 09/20/19 at 22:00; Stop 09/21/19 at 21:59; Status DC Lorazepam (Ativan Inj) 0.25 mg PRN Q4HRS PRN IVP ANXIETY / AGITATION Last administered on 10/30/19at 00:27; Start 09/21/19 at 07:30 Potassium Chloride 90 meq/ Magnesium Sulfate 20 meq/ Multivitamins 10 ml/Chromium/ Copper/Manganese/ Seleni/Zn 1 ml/ Insulin Human Regular 20 unit/ Total Parenteral Nutrition/Amino Acids/Dextrose/ Fat Emulsion Intravenous 1,800 ml @ 75 mls/hr TPN CONT IV Last administered on 09/21/19at 23:13; Start 09/21/19 at 22:00; Stop 09/22/19 at 21:59; Status DC Furosemide (Lasix) 40 mg DAILY IVP Last administered on 09/23/19at 11:14; Start 09/21/19 at 13:30; Stop 09/25/19 at 09:12; Status DC Fluoxetine HCl (PROzac) 20 mg QHS PEG Last administered on 10/30/19at 21:23; Start 09/22/19 at 21:00 Fentanyl (Duragesic 50mcg/ Hr Patch) 1 patch Q72H TD Last administered on 09/22/19at 21:22; Start 09/22/19 at 21:00; Stop 10/01/19 at 12:00; Status DC Potassium Chloride 40 meq/ Potassium Acetate 60 meq/Magnesium Sulfate 10 meq/ Multivitamins 10 ml/Chromium/ Copper/Manganese/ Seleni/Zn 1 ml/ Insulin Human Regular 20 unit/ Total Parenteral Nutrition/Amino Acids/Dextrose/ Fat Emulsion Intravenous 1,800 ml @ 75 mls/hr TPN CONT IV Last administered on 09/23/19at 00:03; Start 09/22/19 at 22:00; Stop 09/23/19 at 21:59; Status DC Potassium Acetate 80 meq/Magnesium Sulfate 5 meq/ Multivitamins 10 ml/Chromium/ Copper/Manganese/ Seleni/Zn 1 ml/ Insulin Human Regular 20 unit/ Total Parenteral Nutrition/Amino Acids/Dextrose/ Fat Emulsion Intravenous 1,920 ml @ 80 mls/hr TPN CONT IV Last administered on 09/23/19at 21:59; Start 09/23/19 at 22:00; Stop 09/24/19 at 21:59; Status DC Potassium Acetate 60 meq/Magnesium Sulfate 5 meq/ Multivitamins 10 ml/Chromium/ Copper/Manganese/ Seleni/Zn 1 ml/ Insulin Human Regular 30 unit/ Total Parenteral Nutrition/Amino Acids/Dextrose/ Fat Emulsion Intravenous 1,920 ml @ 80 mls/hr TPN CONT IV Last administered on 09/24/19at 21:54; Start 09/24/19 at 22:00; Stop 09/25/19 at 21:59; Status DC Norepinephrine Bitartrate 8 mg/ Dextrose 258 ml @ 13.332 mls/ hr CONT PRN IV PER PROTOCOL Last administered on 10/20/19at 09:09; Start 09/25/19 at 06:30 Albumin Human 500 ml @ 125 mls/hr 1X ONCE IV Last administered on 09/25/19at 08:10; Start 09/25/19 at 08:15; Stop 09/25/19 at 12:14; Status DC Potassium Acetate 40 meq/Magnesium Sulfate 5 meq/ Multivitamins 10 ml/Chromium/ Copper/Manganese/ Seleni/Zn 1 ml/ Insulin Human Regular 30 unit/ Total Parenteral Nutrition/Amino Acids/Dextrose/ Fat Emulsion Intravenous 1,920 ml @ 80 mls/hr TPN CONT IV Last administered on 09/25/19at 22:23; Start 09/25/19 at 22:00; Stop 09/26/19 at 21:59; Status DC Meropenem 1 gm/ Sodium Chloride 100 ml @ 200 mls/hr Q8HRS IV ; Start 09/25/19 at 14:00; Status Cancel Meropenem 1 gm/ Sodium Chloride 100 ml @ 200 mls/hr Q8HRS IV Last administered on 09/25/19at 11:04; Start 09/25/19 at 10:00; Stop 09/25/19 at 13:00; Status DC Meropenem 1 gm/ Sodium Chloride 100 ml @ 200 mls/hr Q12HR IV Last administered on 10/13/19at 08:27; Start 09/25/19 at 21:00; Stop 10/13/19 at 08:56; Status DC Sodium Chloride 1,000 ml @ 1,000 mls/hr 1X ONCE IV Last administered on 09/25/19at 11:06; Start 09/25/19 at 10:45; Stop 09/25/19 at 11:44; Status DC Micafungin Sodium 100 mg/Dextrose 100 ml @ 100 mls/hr Q24H IV Last administered on 10/12/19at 12:34; Start 09/25/19 at 11:00; Stop 10/13/19 at 08:56; Status DC Daptomycin 410 mg/ Sodium Chloride 50 ml @ 100 mls/hr Q24H IV Last administer ed on 09/27/19at 13:33; Start 09/25/19 at 14:00; Stop 09/28/19 at 08:30; Status DC Midazolam HCl (Versed) 2 mg STK-MED ONCE .ROUTE ; Start 09/25/19 at 14:47; Stop 09/25/19 at 14:48; Status DC Fentanyl Citrate (Fentanyl 2ml Vial) 100 mcg STK-MED ONCE .ROUTE ; Start 09/25/19 at 14:47; Stop 09/25/19 at 14:48; Status DC Flumazenil (Romazicon) 0.5 mg STK-MED ONCE IV ; Start 09/25/19 at 14:48; Stop 09/25/19 at 14:48; Status DC Naloxone HCl (Narcan) 0.4 mg STK-MED ONCE .ROUTE ; Start 09/25/19 at 14:48; Stop 09/25/19 at 14:48; Status DC Lidocaine HCl (Lidocaine 1% 20ml Vial) 20 ml STK-MED ONCE .ROUTE ; Start 09/25/19 at 14:48; Stop 09/25/19 at 14:48; Status DC Midazolam HCl (Versed) 2 mg 1X ONCE IV Last administered on 09/25/19at 15:28; Start 09/25/19 at 15:00; Stop 09/25/19 at 15:01; Status DC Fentanyl Citrate (Fentanyl 2ml Vial) 100 mcg 1X ONCE IV Last administered on 09/25/19at 15:28; Start 09/25/19 at 15:00; Stop 09/25/19 at 15:01; Status DC Lidocaine HCl (Lidocaine 1% 20ml Vial) 20 ml 1X ONCE INJ Last administered on 09/25/19at 15:30; Start 09/25/19 at 15:00; Stop 09/25/19 at 15:01; Status DC Sodium Chloride 1,000 ml @ 100 mls/hr Q10H IV Last administered on 10/04/19at 07:30; Start 09/25/19 at 20:00; Stop 10/04/19 at 11:26; Status DC Sodium Bicarbonate (Sodium Bicarb Adult 8.4% Syr) 50 meq 1X ONCE IV Last administered on 09/25/19at 21:47; Start 09/25/19 at 22:00; Stop 09/25/19 at 22:01; Status DC Potassium Acetate 40 meq/Magnesium Sulfate 5 meq/ Multivitamins 10 ml/Chromium/ Copper/Manganese/ Seleni/Zn 1 ml/ Insulin Human Regular 30 unit/ Total Parenteral Nutrition/Amino Acids/Dextrose/ Fat Emulsion Intravenous 1,920 ml @ 80 mls/hr TPN CONT IV Last administered on 09/26/19at 22:28; Start 09/26/19 at 22:00; Stop 09/27/19 at 21:59; Status DC Sodium Chloride 500 ml @ 500 mls/hr 1X ONCE IV Last administered on 09/27/19at 06:39; Start 09/27/19 at 06:45; Stop 09/27/19 at 07:44; Status DC Potassium Acetate 40 meq/Magnesium Sulfate 5 meq/ Multivitamins 10 ml/Chromium/ Copper/Manganese/ Seleni/Zn 1 ml/ Insulin Human Regular 30 unit/ Total Parenteral Nutrition/Amino Acids/Dextrose/ Fat Emulsion Intravenous 1,920 ml @ 80 mls/hr TPN CONT IV Last administered on 09/27/19at 22:03; Start 09/27/19 at 22:00; Stop 09/28/19 at 21:59; Status DC Metoprolol Tartrate (Lopressor Vial) 5 mg PRN Q6HRS PRN IVP HYPERTENSION Last administered on 10/30/19at 18:01; Start 09/28/19 at 09:00 Potassium Acetate 40 meq/Magnesium Sulfate 5 meq/ Multivitamins 10 ml/Chromium/ Copper/Manganese/ Seleni/Zn 1 ml/ Insulin Human Regular 30 unit/ Total Parenteral Nutrition/Amino Acids/Dextrose/ Fat Emulsion Intravenous 1,920 ml @ 80 mls/hr TPN CONT IV Last administered on 09/28/19at 21:26; Start 09/28/19 at 22:00; Stop 09/29/19 at 21:59; Status DC Potassium Acetate 40 meq/Magnesium Sulfate 5 meq/ Multivitamins 10 ml/Chromium/ Copper/Manganese/ Seleni/Zn 1 ml/ Insulin Human Regular 30 unit/ Total Parenteral Nutrition/Amino Acids/Dextrose/ Fat Emulsion Intravenous 1,920 ml @ 80 mls/hr TPN CONT IV Last administered on 09/29/19at 23:23; Start 09/29/19 at 22:00; Stop 09/30/19 at 21:59; Status DC Potassium Acetate 40 meq/Magnesium Sulfate 5 meq/ Multivitamins 10 ml/Chromium/ Copper/Manganese/ Seleni/Zn 1 ml/ Insulin Human Regular 30 unit/ Total Parenteral Nutrition/Amino Acids/Dextrose/ Fat Emulsion Intravenous 1,920 ml @ 80 mls/hr TPN CONT IV Last administered on 09/30/19at 21:35; Start 09/30/19 at 22:00; Stop 10/01/19 at 21:59; Status DC Furosemide (Lasix) 20 mg 1X ONCE IVP Last administered on 10/01/19at 06:26; Start 10/01/19 at 06:15; Stop 10/01/19 at 06:16; Status DC Methylprednisolone Sodium Succinate (SOLU-Medrol 125MG VIAL) 125 mg 1X ONCE IV Last administered on 10/01/19at 06:26; Start 10/01/19 at 06:15; Stop 10/01/19 at 06:16; Status DC Albuterol/ Ipratropium (Duoneb) 3 ml Q4HRS NEB Last administered on 10/31/19at 08:27; Start 10/01/19 at 08:00 Fentanyl Citrate 30 ml @ 0 mls/hr CONT PRN IV SEE PROTOCOL Last administered on 10/22/19at 08:03; Start 10/01/19 at 06:00; Stop 10/22/19 at 12:42; Status DC Propofol 100 ml @ 0 mls/hr CONT PRN IV SEE PROTOCOL Last administered on 10/08/19at 23:50; Start 10/01/19 at 06:00 Fentanyl Citrate (Fentanyl 2ml Vial) 25 mcg PRN Q1HR PRN IV SEE COMMENTS Last administered on 10/31/19at 05:39; Start 10/01/19 at 06:00 Fentanyl Citrate (Fentanyl 2ml Vial) 50 mcg PRN Q1HR PRN IV SEE COMMENTS Last administered on 10/30/19at 18:02; Start 10/01/19 at 06:00 Chlorhexidine Gluconate (Peridex) 15 ml BID MM ; Start 10/01/19 at 09:00; Stop 10/01/19 at 07:58; Status DC Potassium Acetate 40 meq/Magnesium Sulfate 5 meq/ Multivitamins 10 ml/Chromium/ Copper/Manganese/ Seleni/Zn 1 ml/ Insulin Human Regular 30 unit/ Total Parenteral Nutrition/Amino Acids/Dextrose/ Fat Emulsion Intravenous 1,920 ml @ 80 mls/hr TPN CONT IV Last administered on 10/01/19at 21:19; Start 10/01/19 at 22:00; Stop 10/02/19 at 21:59; Status DC Acetylcysteine (Mucomyst 20% Resp Treatment) 600 mg BID NEB Last administered on 10/07/19at 09:33; Start 10/01/19 at 21:00; Stop 10/07/19 at 10:39; Status DC Magnesium Sulfate 100 ml @ 25 mls/hr 1X ONCE IV Last administered on 10/01/19at 15:48; Start 10/01/19 at 15:45; Stop 10/01/19 at 19:44; Status DC Potassium Acetate 40 meq/Magnesium Sulfate 5 meq/ Multivitamins 10 ml/Chromium/ Copper/Manganese/ Seleni/Zn 1 ml/ Insulin Human Regular 30 unit/ Total Parenteral Nutrition/Amino Acids/Dextrose/ Fat Emulsion Intravenous 1,920 ml @ 80 mls/hr TPN CONT IV Last administered on 10/02/19at 21:35; Start 10/02/19 at 22:00; Stop 10/03/19 at 21:59; Status DC Potassium Chloride/Water 100 ml @ 100 mls/hr Q1H IV Last administered on 10/03/19at 08:31; Start 10/03/19 at 07:00; Stop 10/03/19 at 08:59; Status DC Potassium Acetate 40 meq/Magnesium Sulfate 5 meq/ Multivitamins 10 ml/Chromium/ Copper/Manganese/ Seleni/Zn 1 ml/ Insulin Human Regular 30 unit/ Total Parenteral Nutrition/Amino Acids/Dextrose/ Fat Emulsion Intravenous 1,920 ml @ 80 mls/hr TPN CONT IV Last administered on 10/03/19at 21:54; Start 10/03/19 at 22:00; Stop 10/04/19 at 19:34; Status DC Lidocaine HCl (Buffered Lidocaine 1%) 3 ml STK-MED ONCE .ROUTE ; Start 10/03/19 at 12:14; Stop 10/03/19 at 12:14; Status DC Lidocaine HCl (Buffered Lidocaine 1%) 3 ml 1X ONCE IJ Last administered on 10/03/19at 13:11; Start 10/03/19 at 13:00; Stop 10/03/19 at 13:01; Status DC Magnesium Sulfate 50 ml @ 25 mls/hr 1X ONCE IV ; Start 10/04/19 at 08:15; Stop 10/04/19 at 10:14; Status DC Potassium Acetate 40 meq/Magnesium Sulfate 10 meq/ Multivitamins 10 ml/Chromium/ Copper/Manganese/ Seleni/Zn 1 ml/ Insulin Human Regular 20 unit/ Total Parenteral Nutrition/Amino Acids/Dextrose/ Fat Emulsion Intravenous 1,920 ml @ 80 mls/hr TPN CONT IV Last administered on 10/04/19at 21:32; Start 10/04/19 at 22:00; Stop 10/05/19 at 21:59; Status DC Potassium Chloride/Water 100 ml @ 100 mls/hr Q1H IV Last administered on 10/05/19at 09:12; Start 10/05/19 at 08:00; Stop 10/05/19 at 09:59; Status DC Alteplase, Recombinant (Cathflo For Central Catheter Clearance) 4 mg 1X ONCE INT CAT ; Start 10/05/19 at 09:15; Stop 10/05/19 at 09:16; Status UNV Alteplase, Recombinant (Cathflo For Central Catheter Clearance) 4 mg 1X ONCE I NT CAT ; Start 10/05/19 at 09:15; Stop 10/05/19 at 09:16; Status UNV Alteplase, Recombinant (Cathflo For Central Catheter Clearance) 4 mg 1X ONCE INT CAT ; Start 10/05/19 at 09:15; Stop 10/05/19 at 09:16; Status UNV Alteplase, Recombinant 4 mg/ Sodium Chloride 20 ml @ 20 mls/hr 1X ONCE IV Last administered on 10/05/19at 10:10; Start 10/05/19 at 10:00; Stop 10/05/19 at 10:59; Status DC Alteplase, Recombinant 4 mg/ Sodium Chloride 20 ml @ 20 mls/hr 1X ONCE IV Last administered on 10/05/19at 10:09; Start 10/05/19 at 10:00; Stop 10/05/19 at 10:59; Status DC Alteplase, Recombinant 4 mg/ Sodium Chloride 20 ml @ 20 mls/hr 1X ONCE IV Last administered on 10/05/19at 10:09; Start 10/05/19 at 10:00; Stop 10/05/19 at 10:59; Status DC Potassium Acetate 60 meq/Magnesium Sulfate 10 meq/ Multivitamins 10 ml/Chromium/ Copper/Manganese/ Seleni/Zn 1 ml/ Insulin Human Regular 20 unit/ Total Par enteral Nutrition/Amino Acids/Dextrose/ Fat Emulsion Intravenous 1,920 ml @ 80 mls/hr TPN CONT IV Last administered on 10/05/19at 21:55; Start 10/05/19 at 22:00; Stop 10/06/19 at 21:59; Status DC Albumin Human 500 ml @ 125 mls/hr 1X ONCE IV Last administered on 10/06/19at 12:01; Start 10/06/19 at 11:15; Stop 10/06/19 at 15:14; Status DC Sodium Chloride 500 ml @ 500 mls/hr 1X ONCE IV Last administered on 10/06/19at 13:50; Start 10/06/19 at 11:15; Stop 10/06/19 at 12:14; Status DC Potassium Acetate 60 meq/Magnesium Sulfate 14 meq/ Multivitamins 10 ml/Chromium/ Copper/Manganese/ Seleni/Zn 1 ml/ Insulin Human Regular 20 unit/ Total Parenteral Nutrition/Amino Acids/Dextrose/ Fat Emulsion Intravenous 1,920 ml @ 80 mls/hr TPN CONT IV Last administered on 10/06/19at 22:26; Start 10/06/19 at 22:00; Stop 10/07/19 at 21:59; Status DC Ciprofloxacin/ Dextrose 200 ml @ 200 mls/hr Q12HR IV Last administered on 10/13/19at 08:27; Start 10/06/19 at 21:00; Stop 10/13/19 at 08:56; Status DC Albumin Human 250 ml @ 62.5 mls/hr 1X ONCE IV Last administered on 10/07/19at 11:09; Start 10/07/19 at 11:00; Stop 10/07/19 at 14:59; Status DC Furosemide (Lasix) 20 mg 1X ONCE IVP Last administered on 10/07/19at 14:52; Start 10/07/19 at 10:45; Stop 10/07/19 at 10:49; Status DC Potassium Acetate 60 meq/Magnesium Sulfate 14 meq/ Multivitamins 10 ml/Chromium/ Copper/Manganese/ Seleni/Zn 1 ml/ Insulin Human Regular 15 unit/ Total Parenteral Nutrition/Amino Acids/Dextrose/ Fat Emulsion Intravenous 1,920 ml @ 80 mls/hr TPN CONT IV Last administered on 10/07/19at 22:08; Start 10/07/19 at 22:00; Stop 10/08/19 at 21:59; Status DC Potassium Acetate 60 meq/Magnesium Sulfate 14 meq/ Multivitamins 10 ml/Chromium/ Copper/Manganese/ Seleni/Zn 1 ml/ Insulin Human Regular 15 unit/ Total Pa renteral Nutrition/Amino Acids/Dextrose/ Fat Emulsion Intravenous 1,920 ml @ 80 mls/hr TPN CONT IV Last administered on 10/08/19at 22:12; Start 10/08/19 at 22:00; Stop 10/09/19 at 21:59; Status DC Potassium Acetate 60 meq/Magnesium Sulfate 14 meq/ Multivitamins 10 ml/Chromium/ Copper/Manganese/ Seleni/Zn 1 ml/ Insulin Human Regular 15 unit/ Total Parenteral Nutrition/Amino Acids/Dextrose/ Fat Emulsion Intravenous 1,920 ml @ 80 mls/hr TPN CONT IV Last administered on 10/09/19at 22:22; Start 10/09/19 at 22:00; Stop 10/10/19 at 21:59; Status DC Furosemide (Lasix) 20 mg 1X ONCE IVP Last administered on 10/10/19at 11:07; Start 10/10/19 at 10:30; Stop 10/10/19 at 10:34; Status DC Potassium Acetate 60 meq/Magnesium Sulfate 14 meq/ Multivitamins 10 ml/Chromium/ Copper/Manganese/ Seleni/Zn 1 ml/ Insulin Human Regular 15 unit/ Sodium Chloride 20 meq/Total Parenteral Nutrition/Amino Acids/Dextrose/ Fat Emulsion Intravenous 1,920 ml @ 80 mls/hr TPN CONT IV Last administered on 10/10/19at 21:54; Start 10/10/19 at 22:00; Stop 10/11/19 at 21:59; Status DC Potassium Acetate 30 meq/Magnesium Sulfate 14 meq/ Multivitamins 10 ml/Chromium/ Copper/Manganese/ Seleni/Zn 1 ml/ Insulin Human Regular 15 unit/ Sodium Chloride 20 meq/Potassium Chloride 30 meq/ Total Parenteral Nutrition/Amino Acids/Dextrose/ Fat Emulsion Intravenous 1,920 ml @ 80 mls/hr TPN CONT IV Last administered on 10/11/19at 21:46; Start 10/11/19 at 22:00; Stop 10/12/19 at 21:59; Status DC Sodium Chloride 80 meq/Potassium Chloride 30 meq/ Potassium Acetate 30 meq/Magnesium Sulfate 14 meq/ Multivitamins 10 ml/Chromium/ Copper/Manganese/ Seleni/Zn 1 ml/ Insulin Human Regular 15 unit/ Total Parenteral Nutrition/Amino Acids/Dextrose/ Fat Emulsion Intravenous 1,920 ml @ 80 mls/hr TPN CONT IV Last administered on 10/12/19at 22:33; Start 10/12/19 at 22:00; Stop 10/13/19 at 21:59; Status DC Furosemide (Lasix) 40 mg 1X ONCE IVP Last administered on 10/12/19at 16:27; Start 10/12/19 at 15:30; Stop 10/12/19 at 15:33; Status DC Albumin Human 250 ml @ 62.5 mls/hr 1X ONCE IV Last administered on 10/12/19at 16:27; Start 10/12/19 at 15:30; Stop 10/12/19 at 19:29; Status DC Sodium Chloride 80 meq/Potassium Chloride 30 meq/ Potassium Acetate 30 meq/Magnesium Sulfate 14 meq/ Multivitamins 10 ml/Chromium/ Copper/Manganese/ Seleni/Zn 1 ml/ Insulin Human Regular 15 unit/ Total Parenteral Nutrition/Amino Acids/Dextrose/ Fat Emulsion Intravenous 1,920 ml @ 80 mls/hr TPN CONT IV Last administered on 10/13/19at 22:25; Start 10/13/19 at 22:00; Stop 10/14/19 at 21:59; Status DC Sodium Chloride 80 meq/Potassium Chloride 30 meq/ Potassium Acetate 30 meq/Magnesium Sulfate 14 meq/ Multivitamins 10 ml/Chromium/ Copper/Manganese/ Seleni/Zn 1 ml/ Insulin Human Regular 15 unit/ Total Parenteral Nutrition/Amino Acids/Dextrose/ Fat Emulsion Intravenous 1,920 ml @ 80 mls/hr TPN CONT IV Last administered on 10/14/19at 21:32; Start 10/14/19 at 22:00; Stop 10/15/19 at 21:59; Status DC Sodium Chloride 80 meq/Potassium Chloride 30 meq/ Potassium Acetate 30 meq/Magnesium Sulfate 14 meq/ Multivitamins 10 ml/Chromium/ Copper/Manganese/ Seleni/Zn 1 ml/ Insulin Human Regular 15 unit/ Total Parenteral Nutrition/Amino Acids/Dextrose/ Fat Emulsion Intravenous 1,920 ml @ 80 mls/hr TPN CONT IV Last administered on 10/15/19at 21:53; Start 10/15/19 at 22:00; Stop 10/16/19 at 21:59; Status DC Acetylcysteine (Mucomyst 20% Resp Treatment) 600 mg RTBID NEB Last administered on 10/31/19at 08:28; Start 10/15/19 at 12:00 Sodium Chloride 80 meq/Potassium Chloride 30 meq/ Potassium Acetate 30 meq/Magnesium Sulfate 14 meq/ Multivitamins 10 ml/Chromium/ Copper/Manganese/ Seleni/Zn 1 ml/ Insulin Human Regular 15 unit/ Total Parenteral Nutrition/Amino Acids/Dextrose/ Fat Emulsion Intravenous 1,920 ml @ 80 mls/hr TPN CONT IV Last administered on 10/16/19at 22:06; Start 10/16/19 at 22:00; Stop 10/17/19 at 21:59; Status DC Meropenem 500 mg/ Sodium Chloride 50 ml @ 100 mls/hr Q6HRS IV Last administered on 10/31/19at 05:38; Start 10/16/19 at 18:00 Daptomycin 500 mg/ Sodium Chloride 50 ml @ 100 mls/hr Q24H IV Last administered on 10/24/19at 21:47; Start 10/16/19 at 19:00; Stop 10/25/19 at 08:13; Status DC Sodium Chloride 80 meq/Potassium Chloride 30 meq/ Potassium Acetate 30 meq/Magnesium Sulfate 14 meq/ Multivitamins 10 ml/Chromium/ Copper/Manganese/ Seleni/Zn 1 ml/ Insulin Human Regular 15 unit/ Total Parenteral Nutrition/Amino Acids/Dextrose/ Fat Emulsion Intravenous 1,920 ml @ 80 mls/hr TPN CONT IV Last administered on 10/17/19at 22:09; Start 10/17/19 at 22:00; Stop 10/18/19 at 21:59; Status DC Heparin Sodium (Porcine) 1000 unit/Sodium Chloride 1,001 ml @ 1,001 mls/hr 1X ONCE IRR ; Start 10/18/19 at 06:00; Stop 10/18/19 at 06:59; Status DC Propofol (Diprivan) 200 mg STK-MED ONCE IV ; Start 10/18/19 at 07:44; Stop 10/18/19 at 07:44; Status DC Lidocaine HCl (Lidocaine Pf 2% Vial) 5 ml STK-MED ONCE .ROUTE ; Start 10/18/19 at 07:44; Stop 10/18/19 at 07:44; Status DC Fentanyl Citrate (Fentanyl 2ml Vial) 100 mcg STK-MED ONCE .ROUTE ; Start 10/18/19 at 07:44; Stop 10/18/19 at 07:44; Status DC Rocuronium Gaston (Zemuron) 100 mg STK-MED ONCE .ROUTE ; Start 10/18/19 at 07:44; Stop 10/18/19 at 07:44; Status DC Micafungin Sodium 100 mg/Dextrose 100 ml @ 100 mls/hr Q24H IV Last administered on 10/31/19at 08:28; Start 10/18/19 at 08:30 Bupivacaine HCl/ Epinephrine Bitart (Sensorcain-Epi 0.5%-1:002433 Mpf) 30 ml STK-MED ONCE .ROUTE ; Start 10/18/19 at 08:34; Stop 10/18/19 at 08:35; Status DC Iohexol (Omnipaque 300 Mg/ml) 50 ml STK-MED ONCE .ROUTE Last administered on 10/18/19at 13:30; Start 10/18/19 at 08:35; Stop 10/18/19 at 08:35; Status DC Sodium Chloride 80 meq/Potassium Chloride 30 meq/ Potassium Acetate 30 meq/Magnesium Sulfate 14 meq/ Multivitamins 10 ml/Chromium/ Copper/Manganese/ Seleni/Zn 1 ml/ Insulin Human Regular 15 unit/ Total Parenteral Nutrition/Amino Acids/Dextrose/ Fat Emulsion Intravenous 1,920 ml @ 80 mls/hr TPN CONT IV Last administered on 10/19/19at 01:22; Start 10/18/19 at 22:00; Stop 10/19/19 at 21:59; Status DC Phenylephrine HCl (Brayden-Synephrine Inj) 10 mg STK-MED ONCE .ROUTE ; Start 10/18/19 at 10:15; Stop 10/18/19 at 10:15; Status DC Desflurane (Suprane) 90 ml STK-MED ONCE IH ; Start 10/18/19 at 10:18; Stop 10/18/19 at 10:19; Status DC Albumin Human 500 ml @ As Directed STK-MED ONCE IV ; Start 10/18/19 at 11:06; Stop 10/18/19 at 11:06; Status DC Vasopressin (Vasostrict) 20 unit STK-MED ONCE .ROUTE ; Start 10/18/19 at 12:23; Stop 10/18/19 at 12:23; Status DC Phenylephrine HCl (Brayden-Synephrine Inj) 10 mg STK-MED ONCE .ROUTE ; Start 10/18/19 at 13:33; Stop 10/18/19 at 13:33; Status DC Phenylephrine HCl (Brayden-Synephrine Inj) 10 mg STK-MED ONCE .ROUTE ; Start 10/18/19 at 13:33; Stop 10/18/19 at 13:33; Status DC Ondansetron HCl (Zofran) 4 mg STK-MED ONCE .ROUTE ; Start 10/18/19 at 13:33; Stop 10/18/19 at 13:33; Status DC Enoxaparin Sodium (Lovenox 40mg Syringe) 40 mg Q24H SQ Last administered on 10/31/19at 09:13; Start 10/19/19 at 08:00 Sodium Chloride (Normal Saline Flush) 3 ml QSHIFT PRN IV AFTER MEDS AND BLOOD DRAWS; Start 10/18/19 at 14:45 Naloxone HCl (Narcan) 0.4 mg PRN Q2MIN PRN IV SEE INSTRUCTIONS; Start 10/18/19 at 14:45 Sodium Chloride 1,000 ml @ 25 mls/hr Q24H IV Last administered on 10/30/19at 14:27; Start 10/18/19 at 14:33 Morphine Sulfate (Morphine Sulfate) 1 mg PRN Q1HR PRN IV PAIN; Start 10/18/19 at 14:45 Midazolam HCl 100 mg/Sodium Chloride 100 ml @ 1 mls/hr CONT PRN IV SEE I/O RECORD Last administered on 10/21/19at 18:48; Start 10/18/19 at 14:45 Phenylephrine HCl (PHENYLEPHRINE in 0.9% NACL PF) 1 mg STK-MED ONCE IV ; Start 10/18/19 at 14:44; Stop 10/18/19 at 14:45; Status DC Ephedrine Sulfate (ePHEDrine PF IN SALINE SYRINGE) 50 mg STK-MED ONCE IV ; Start 10/18/19 at 14:45; Stop 10/18/19 at 14:45; Status DC Vasopressin 20 unit/Dextrose 101 ml @ 12 mls/hr CONT PRN IV SEE I/O RECORD Last administered on 10/25/19at 04:17; Start 10/18/19 at 15:30 Sodium Chloride 1,000 ml @ 1,000 mls/hr 1X ONCE IV Last administered on 10/18/19at 15:42; Start 10/18/19 at 15:45; Stop 10/18/19 at 16:44; Status DC Albumin Human 500 ml @ 125 mls/hr 1X ONCE IV ; Start 10/18/19 at 16:00; Stop 10/18/19 at 19:59; Status DC Albumin Human 500 ml @ 125 mls/hr PRN Q1HR PRN IV PER PROTOCOL; Start 10/18/19 at 15:45 Magnesium Sulfate 50 ml @ 25 mls/hr 1X ONCE IV Last administered on 10/18/19at 17:02; Start 10/18/19 at 16:30; Stop 10/18/19 at 18:29; Status DC Sodium Bicarbonate (Sodium Bicarb Adult 8.4% Syr) 50 meq STK-MED ONCE .ROUTE ; Start 10/18/19 at 16:20; Stop 10/18/19 at 16:20; Status DC Sodium Bicarbonate (Sodium Bicarb Adult 8.4% Syr) 100 meq 1X ONCE IV Last administered on 10/18/19at 17:07; Start 10/18/19 at 16:30; Stop 10/18/19 at 16:31; Status DC Sodium Bicarbonate 150 meq/Dextrose 1,150 ml @ 75 mls/hr 1X ONCE IV Last ad ministered on 10/18/19at 20:02; Start 10/18/19 at 16:30; Stop 10/19/19 at 07:49; Status DC Sodium Chloride 80 meq/Potassium Chloride 30 meq/ Potassium Acetate 30 meq/Magnesium Sulfate 14 meq/ Multivitamins 10 ml/Chromium/ Copper/Manganese/ Seleni/Zn 1 ml/ Insulin Human Regular 15 unit/ Total Parenteral Nutrition/Amino Acids/Dextrose/ Fat Emulsion Intravenous 1,920 ml @ 80 mls/hr TPN CONT IV Last administered on 10/19/19at 23:05; Start 10/19/19 at 22:00; Stop 10/20/19 at 21:59; Status DC Sodium Chloride 100 meq/Potassium Chloride 30 meq/ Potassium Acetate 30 meq/Magnesium Sulfate 12 meq/ Multivitamins 10 ml/Chromium/ Copper/Manganese/ Seleni/Zn 1 ml/ Insulin Human Regular 15 unit/ Total Parenteral Nutrition/Amino Acids/Dextrose/ Fat Emulsion Intravenous 1,920 ml @ 80 mls/hr TPN CONT IV Last administered on 10/20/19at 21:52; Start 10/20/19 at 22:00; Stop 10/21/19 at 21:59; Status DC Sodium Chloride 100 meq/Potassium Chloride 30 meq/ Potassium Acetate 30 meq/Magnesium Sulfate 12 meq/ Multivitamins 10 ml/Chromium/ Copper/Manganese/ Seleni/Zn 1 ml/ Insulin Human Regular 15 unit/ Total Parenteral Nutrition/Amino Acids/Dextrose/ Fat Emulsion Intravenous 1,920 ml @ 80 mls/hr TPN CONT IV Last administered on 10/21/19at 21:46; Start 10/21/19 at 22:00; Stop 10/22/19 at 21: 59; Status DC Sodium Chloride 100 meq/Potassium Chloride 30 meq/ Potassium Acetate 30 meq/Magnesium Sulfate 12 meq/ Multivitamins 10 ml/Chromium/ Copper/Manganese/ Seleni/Zn 1 ml/ Insulin Human Regular 15 unit/ Total Parenteral Nutrition/Amino Acids/Dextrose/ Fat Emulsion Intravenous 1,800 ml @ 75 mls/hr TPN CONT IV Last administered on 10/22/19at 22:04; Start 10/22/19 at 22:00; Stop 10/23/19 at 21:59; Status DC Fentanyl Citrate 55 ml @ 0 mls/hr CONT PRN IV SEE COMMENTS Last administered on 10/24/19at 23:55; Start 10/22/19 at 13:00; Stop 10/27/19 at 17:28; Status DC Sodium Chloride 100 meq/Potassium Chloride 30 meq/ Potassium Acetate 30 meq/Magnesium Sulfate 12 meq/ Multivitamins 10 ml/Chromium/ Copper/Manganese/ Seleni/Zn 1 ml/ Insulin Human Regular 15 unit/ Total Parenteral Nutrition/Amino Acids/Dextrose/ Fat Emulsion Intravenous 1,680 ml @ 70 mls/hr TPN CONT IV Last administered on 10/23/19at 21:23; Start 10/23/19 at 22:00; Stop 10/24/19 at 21:59; Status DC Sodium Chloride 110 meq/Potassium Chloride 30 meq/ Potassium Acetate 30 meq/Magnesium Sulfate 15 meq/ Multivitamins 10 ml/Chromium/ Copper/Manganese/ Seleni/Zn 1 ml/ Insulin Human Regular 15 unit/ Total Parenteral Nutrition/Amino Acids/Dextrose/ Fat Emulsion Intravenous 1,680 ml @ 70 mls/hr TPN CONT IV Last administered on 10/24/19at 21:48; Start 10/24/19 at 22:00; Stop 10/25/19 at 21:59; Status DC Sodium Chloride 110 meq/Potassium Chloride 30 meq/ Potassium Acetate 30 meq/Magnesium Sulfate 15 meq/ Multivitamins 10 ml/Chromium/ Copper/Manganese/ Seleni/Zn 1 ml/ Insulin Human Regular 15 unit/ Total Parenteral Nutrition/Amino Acids/Dextrose/ Fat Emulsion Intravenous 1,680 ml @ 70 mls/hr TPN CONT IV Last administered on 10/25/19at 21:33; Start 10/25/19 at 22:00; Stop 10/26/19 at 21:59; Status DC Sodium Chloride 110 meq/Potassium Chloride 30 meq/ Potassium Acetate 30 meq/Magnesium Sulfate 15 meq/ Multivitamins 10 ml/Chromium/ Copper/Manganese/ Seleni/Zn 1 ml/ Insulin Human Regular 15 unit/ Total Parenteral Nutrition/Amino Acids/Dextrose/ Fat Emulsion Intravenous 1,680 ml @ 70 mls/hr TPN CONT IV Last administered on 10/26/19at 21:51; Start 10/26/19 at 22:00; Stop 10/27/19 at 21:59; Status DC Sodium Chloride 90 meq/Potassium Chloride 30 meq/ Potassium Acetate 30 meq/Magnesium Sulfate 15 meq/ Multivitamins 10 ml/Chromium/ Copper/Manganese/ Seleni/Zn 1 ml/ Insulin Human Regular 15 unit/ Total Parenteral Nutrition/Amino Acids/Dextrose/ Fat Emulsion Intravenous 1,680 ml @ 70 mls/hr TPN CONT IV Last administered on 10/27/19at 22:38; Start 10/27/19 at 22:00; Stop 10/28/19 at 21:59; Status DC Fentanyl Citrate 30 ml @ 0 mls/hr CONT PRN IV SEE I/O RECORD; Start 10/27/19 at 17:30 Fentanyl (Duragesic 12mcg/ Hr Patch) 1 patch Q3DAYS TD Last administered on 10/28/19at 18:03; Start 10/28/19 at 09:00 Sodium Chloride 90 meq/Potassium Chloride 30 meq/ Potassium Acetate 30 meq/Magnesium Sulfate 15 meq/ Multivitamins 10 ml/Chromium/ Copper/Manganese/ Seleni/Zn 1 ml/ Insulin Human Regular 15 unit/ Total Parenteral Nutrition/Amino Acids/Dextrose/ Fat Emulsion Intravenous 1,680 ml @ 70 mls/hr TPN CONT IV Last administered on 10/28/19at 21:59; Start 10/28/19 at 22:00; Stop 10/29/19 at 21:59; Status DC Sodium Chloride 90 meq/Potassium Chloride 30 meq/ Potassium Acetate 30 meq/Magnesium Sulfate 15 meq/ Multivitamins 10 ml/Chromium/ Copper/Manganese/ Seleni/Zn 1 ml/ Insulin Human Regular 15 unit/ Total Parenteral Nutrition/Amino Acids/Dextrose/ Fat Emulsion Intravenous 1,680 ml @ 70 mls/hr TPN CONT IV Last administered on 10/29/19at 21:35; Start 10/29/19 at 22:00; Stop 10/30/19 at 21:59; Status DC Vancomycin HCl (Vanco Per Pharmacy) 1 each PRN DAILY PRN MC SEE COMMENTS Last administered on 10/30/19at 16:07; Start 10/30/19 at 09:15 Ciprofloxacin/ Dextrose 200 ml @ 200 mls/hr Q12HR IV Last administered on 10/31/19at 08:31; Start 10/30/19 at 10:00 Vancomycin HCl 2 gm/Sodium Chloride 500 ml @ 250 mls/hr 1X ONCE IV Last administered on 10/30/19at 10:34; Start 10/30/19 at 10:00; Stop 10/30/19 at 11:59; Status DC Sodium Chloride 90 meq/Potassium Chloride 30 meq/ Potassium Acetate 30 meq/Magnesium Sulfate 15 meq/ Multivitamins 10 ml/Chromium/ Copper/Manganese/ Seleni/Zn 1 ml/ Insulin Human Regular 15 unit/ Total Parenteral Nutrition/Amino Acids/Dextrose/ Fat Emulsion Intravenous 1,680 ml @ 70 mls/hr TPN CONT IV Last administered on 10/30/19at 22:02; Start 10/30/19 at 22:00; Stop 10/31/19 at 21:59 Diphenhydramine HCl (Benadryl) 25 mg 1X ONCE IVP Last administered on at 14:26; Start 10/30/19 at 14:30; Stop 10/30/19 at 14:31; Status DC Vancomycin HCl 1.5 gm/Sodium Chloride 500 ml @ 250 mls/hr Q8H IV Last administered on 10/31/19at 03:08; Start 10/30/19 at 18:30 Vancomycin HCl (Vancomycin Trough Level) 1 each 1X ONCE MC ; Start 10/31/19 at 10:00; Stop 10/31/19 at 10:01 Active Scripts Active Reported Bisoprolol Fumarate 5 Mg Tablet 10 Mg PO DAILY Vitals/I & O Vital Sign - Last 24 Hours 10/30/19 10/30/19 10/30/19 10/30/19 10:00 11:00 11:50 12:00 Temp 100.0 100.0 Pulse 122 124 127 Resp 41 41 38 B/P (MAP) 138/76 (96) 150/91 (110) 133/78 (96) Pulse Ox 97 98 100 O2 Delivery Trach shield Trach shield Trach Collar Trach shield O2 Flow Rate 9.0 9.0 9.0 9.0 10/30/19 10/30/19 10/30/19 10/30/19 12:06 12:42 13:00 13:15 Pulse 126 Resp 40 38 33 B/P (MAP) 146/87 (106) Pulse Ox 97 100 100 O2 Delivery Tracheal Collar Tracheal Collar Trach shield Tracheal Collar O2 Flow Rate 8.0 9.0 9.0 9.0 10/30/19 10/30/19 10/30/19 10/30/19 14:00 15:00 15:34 16:00 Temp 99.2 100.2 99.2 100.2 Pulse 123 126 127 Resp 36 32 28 B/P (MAP) 132/86 (101) 153/91 (111) 113/91 (98) Pulse Ox 95 96 97 100 O2 Delivery Trach shield Ventilator Ventilator Ventilator O2 Flow Rate 9.0 10/30/19 10/30/19 10/30/19 10/30/19 16:00 17:00 17:30 18:00 Temp 101.5 101.5 Pulse 134 134 Resp 26 28 B/P (MAP) 152/84 (106) 149/80 (103) Pulse Ox 97 97 97 O2 Delivery Mechanical Ventilator Ventilator Ventilator Ventilator 10/30/19 10/30/19 10/30/19 10/30/19 18:01 18:02 18:35 19:00 Pulse 134 114 Resp 33 28 20 B/P (MAP) 152/84 117/66 (83) Pulse Ox 97 98 98 O2 Delivery Ventilator Ventilator Ventilator 10/30/19 10/30/19 10/30/19 10/30/19 20:00 20:00 20:20 21:00 Temp 100.4 100.4 Pulse 110 110 Resp 20 12 B/P (MAP) 144/81 (102) 129/76 (93) Pulse Ox 99 100 100 O2 Delivery Mechanical Ventilator Ventilator Ventilator Ventilator 10/30/19 10/30/19 10/30/19 10/31/19 22:00 23:00 23:16 00:00 Pulse 106 113 Resp 12 18 B/P (MAP) 119/73 (88) 116/71 (86) Pulse Ox 100 99 100 O2 Delivery Ventilator Ventilator Ventilator Mechanical Ventilator 10/31/19 10/31/19 10/31/19 10/31/19 00:00 01:00 02:00 02:38 Temp 99.9 99.9 Pulse 114 115 116 Resp 20 21 25 B/P (MAP) 116/81 (93) 125/77 (93) 119/78 (92) Pulse Ox 99 100 100 99 O2 Delivery Ventilator Ventilator Ventilator Ventilator 10/31/19 10/31/19 10/31/19 10/31/19 03:00 03:45 04:00 04:40 Temp 100.3 100.3 Pulse 120 118 Resp 31 20 B/P (MAP) 111/73 (86) 131/85 (100) Pulse Ox 99 100 100 O2 Delivery Ventilator Mechanical Ventilator Ventilator Ventilator 10/31/19 10/31/19 10/31/19 05:00 06:00 08:28 Pulse 119 116 Resp 19 20 B/P (MAP) 138/98 (111) 148/74 (98) Pulse Ox 99 100 97 O2 Delivery Ventilator Ventilator Ventilator Intake and Output 10/30/19 10/30/19 10/31/19 15:00 23:00 07:00 Intake Total 50 ml 200 ml 2584 ml Output Total 820 ml 1135 ml 1115 ml Balance -770 ml -935 ml 1469 ml Justicifation of Admission Dx: Justifications for Admission: Justification of Admission Dx: Yes ABI AHN MD Oct 31, 2019 09:27
[2019-10-31] MEDS: fentaNYL 12MCG/HR PATCH 1 PATCH PATCH.TD72 TD SCH (10:01)
--- NOTE | 2019-10-31 10:33 | PDOC ---
PROGRESS NOTES Chief Complaint Chief Complaint A/P Acute hypoxic Respiratory failure required mechanical ventilation Tracheostomy bilateral pleural effusions/pulm edema s/p Throacentesis on 10/03/2019 Severe Acute gallstone pancreatitis (not a surgical candidate at this time) with necrosis Acute kidney failure now requiring dialysis Gallstones (Calculus of gallbladder with acute cholecystitis without obstruction) HTN Intractable pain Intractable nausea Covid 19 negative. Acute on chronic anemia EEG: No seizure activityFever - better currently - intermittent could be from underlying pancreatitis blood cults 08/21 - neg so far ? Ileus with vomiting Abd distention - U/S and CT reviewed s/p 0.4 L of opaque, debris-containing ascites was removed 08/23 Acute pancreatitis with persistent necrosis Gallstone pancreatitis with necrosis. -CT A/P 09/23 showed multiple pseudocysts, slight larger on the right. s/p drains x 3, 09/24. + PSAE (MDRO-R Cefepime, Zosyn ALEXANDRA < 64) and yeast, -s/p drain 08/14. C. parapsilosis. s/p drain 08/23 + yeast & high amylase; s/p additional drain on 08/25. Drains removed. Ascites s/p paracentesis 08/02 & 08/23. C. parapsilosis JUANA. off HD. A large fluid collection in the pancreatic bed has slightly decreased in size, described below, the pancreas itself is difficult to visualize, which could be due to necrosis or obscuration of pancreatic parenchyma from the surrounding fluid collection.10/02 - 08/14 status post KAYLIN drain placement + C paropsilosis. s/p additional drains 08/25 Anemia - S/p PRBCs Cholelithiasis with thickening of the gallbladder wall. Leucocytosis improving JUANA, hyperkalemia, Metabolic acidosis off dialysis hypocalcemia Prediabetes HTN s/p trach ESRD on HD Hyperglycemia severe protein-caloric malnutrition Moderate to large left pleural effusion with atelectasis and collapse of most of the left lower lobe, stable Dispo - ICU, critically ill Poor prognosis History of Present Illness History of Present Illness 09/25: IR placed drain on 09/24. 4u PRBC after Hb drop. Hb 8.8 today. Off Levophed this morning. T-max 100.3. Much more lethargic today. CXR with left sided diffuse infiltrates. 6/9: Tachycardic overnight into the 140s. NGT clamped. On BIPAP currently. Drains with serosanguinous discharge. WBC 8, Tmax 99.6F. 09/27: Seen on trach shield in ICU. Hypertensive and tachycardic. Labs stable. blood stained drainage from drains. Afebrile. 09/28: Seen on trach shield in ICU. She is a bit confused, drowsy, but when sitting up is conversational and confusion somewhat clears. She is asking for more pain medication. Stable drains, still very tachy.Na 147 09/29: Patient vomited overnight. Aspirated. Tried to pull her trach out, she was told she would without her trach, she said "I know, I just want to go home". Hb 7.6. Afebrile, still very tachycardic. 1055ml out of right sided KAYLIN drain 09/30: Overnight hypoxic, on BIPAP. CXR with left sided white out lung. Significant mucous plug suctioned by RT with improvement in her ABG after 2 hours this morning. Not really active, tired, lethargic. 890ml out of drains past 24 hours. On vent. D/w daughter bedside. 10/16: To OR for pancreatic necrosectomy, cholecystectomy, lysis of adhesions, gastrostomy tube placement 10/24, awake on vent, weaning sedation, cont other, still with marked drainage 10/25: Still on fentanyl. WBC 15.4, Hb 8.7 Metabolic panel WNL except calcium 10.2 with albumin 1.1. She awakens off sedation, still connected to vent currently. 10/26: FiO2 40% 5 PEEP, WBC 13.4, Hb 7.9, platelets 551. Still on fentanyl, she is working with PT. 10/27: Off vent during the day. Working with PT. Labs stable. Hb to 8.5. Working with PT/OT. She has been suctioning quite a bit of respiratory secretions as well as loose bowels. C diff pending. 10/28: Afebrile, still with loose bowels overnight C. difficile negative. WBC up to 16 coughing up thick yellow sputum able to cough out her trach when taken off trach shield she still has O2 saturations 97%. Gastrostomy tube to gravity with fairly significant drainage that appears to be tube feeds and gastric secretions. She notes pain is better controlled with the fentanyl patch. Blood pressure elevated heart rate elevated is on metoprolol. 10/27: Overnight febrile 101.9F, coughing up more thick yellow and green secretions. FiO2 33% with 94% O2 saturations. Had x3 BM yesterday. Cultures sent for sputum, fungal and blood cultures Temp 100.4 F. Chest x-ray with right basilar infiltrate looks like it is improving. Still with some yellow sputum and suctioning. She is sleepy and on the ventilator again. Transitioning back to trach shield. Still been working well with therapy prognosis still poor, but improving slowly Cont ICU Vitals Vitals Vital Signs Date Time Temp Pulse Resp B/P (MAP) Pulse Ox O2 Delivery O2 Flow Rate FiO2 10/31/19 10:01 28 40 Tracheal Collar 10/31/19 06:00 116 148/74 (98) 10/31/19 04:00 100.3 100.3 10/30/19 14:00 9.0 Physical Exam Physical Exam GENERAL: Propped up in bed, awake, weak appearing HEENT: Pupils equal, oral cavity dry. NGT out, on vent NECK: Tracheostomy LUNGS: Diminished aeration bases, CT on left HEART: S1, S2, regular, tachy ABDOMEN: Sightly less distended, bowel sounds hypoactive, soft, goyal x 2, 3 KAYLIN drains, G-J tube and + wound vac : Lind in place EXTREMITIES: Generalized edema, no cyanosis. SCDs & Podus boots bilaterally, SKIN: warm touch. No signs of rash. NEURO: awake, mouthing some words, tracking LUE-PICC without signs of complications LUE art-line out, mottling about old art-line site is improving. RP palpable, cap refill brisk. General: Alert, Cooperative, mild distress Heart: Regular rate (SR/ST), Other (distant heart sounds) Lungs: Crackles Abdomen: Soft, No tenderness, Other (drains in place with pancreatic necrosis) Extremities: Other (Diffuse edema) Skin: No rashes, No significant lesion Labs LABS Laboratory Tests Test 10/30/19 12:38 10/30/19 17:58 10/31/19 00:21 10/31/19 05:35 Glucose (Fingerstick) 302 mg/dL (70-99) 106 mg/dL (70-99) 124 mg/dL (70-99) White Blood Count 10.5 x10^3/uL (4.0-11.0) Red Blood Count 2.48 x10^6/uL (3.50-5.40) Hemoglobin 7.4 g/dL (12.0-15.5) Hematocrit 21.7 % (36.0-47.0) Mean Corpuscular Volume 88 fL (79-100) Mean Corpuscular Hemoglobin 30 pg (25-35) Mean Corpuscular Hemoglobin Concent 34 g/dL (31-37) Red Cell Distribution Width 14.9 % (11.5-14.5) Platelet Count 543 x10^3/uL (140-400) Neutrophils (%) (Auto) 83 % (31-73) Lymphocytes (%) (Auto) 8 % (24-48) Monocytes (%) (Auto) 8 % (0-9) Eosinophils (%) (Auto) 2 % (0-3) Basophils (%) (Auto) 0 % (0-3) Neutrophils # (Auto) 8.7 x10^3/uL (1.8-7.7) Lymphocytes # (Auto) 0.8 x10^3/uL (1.0-4.8) Monocytes # (Auto) 0.8 x10^3/uL (0.0-1.1) Eosinophils # (Auto) 0.2 x10^3/uL (0.0-0.7) Basophils # (Auto) 0.0 x10^3/uL (0.0-0.2) Sodium Level 137 mmol/L (136-145) Potassium Level 4.3 mmol/L (3.5-5.1) Chloride Level 104 mmol/L (98-107) Carbon Dioxide Level 29 mmol/L (21-32) Anion Gap 4 (6-14) Blood Urea Nitrogen 9 mg/dL (7-20) Creatinine 0.5 mg/dL (0.6-1.0) Estimated GFR (Cockcroft-Gault) 131.1 Glucose Level 113 mg/dL (70-99) Calcium Level 8.5 mg/dL (8.5-10.1) Phosphorus Level 3.8 mg/dL (2.6-4.7) Magnesium Level 2.1 mg/dL (1.8-2.4) Test 7/13/20 05:37 Glucose (Fingerstick) 110 mg/dL (70-99) Assessment and Plan Assessmemt and Plan Problems Medical Problems: (1) Acute pancreatitis Status: Acute (2) Cholelithiasis Status: Acute Comment Review of Relevant I have reviewed the following items kolby (where applicable) has been applied. Labs Laboratory Tests Test 10/29/19 11:17 10/29/19 17:27 10/30/19 00:26 10/30/19 05:15 Glucose (Fingerstick) 144 mg/dL (70-99) 116 mg/dL (70-99) 120 mg/dL (70-99) White Blood Count 18.5 x10^3/uL (4.0-11.0) Red Blood Count 2.99 x10^6/uL (3.50-5.40) Hemoglobin 8.8 g/dL (12.0-15.5) Hematocrit 26.3 % (36.0-47.0) Mean Corpuscular Volume 88 fL (79-100) Mean Corpuscular Hemoglobin 29 pg (25-35) Mean Corpuscular Hemoglobin Concent 33 g/dL (31-37) Red Cell Distribution Width 15.0 % (11.5-14.5) Platelet Count 693 x10^3/uL (140-400) Neutrophils (%) (Auto) 82 % (31-73) Lymphocytes (%) (Auto) 10 % (24-48) Monocytes (%) (Auto) 7 % (0-9) Eosinophils (%) (Auto) 1 % (0-3) Basophils (%) (Auto) 0 % (0-3) Neutrophils # (Auto) 15.1 x10^3/uL (1.8-7.7) Lymphocytes # (Auto) 1.9 x10^3/uL (1.0-4.8) Monocytes # (Auto) 1.3 x10^3/uL (0.0-1.1) Eosinophils # (Auto) 0.1 x10^3/uL (0.0-0.7) Basophils # (Auto) 0.0 x10^3/uL (0.0-0.2) Sodium Level 139 mmol/L (136-145) Potassium Level 4.6 mmol/L (3.5-5.1) Chloride Level 103 mmol/L (98-107) Carbon Dioxide Level 30 mmol/L (21-32) Anion Gap 6 (6-14) Blood Urea Nitrogen 11 mg/dL (7-20) Creatinine 0.5 mg/dL (0.6-1.0) Estimated GFR (Cockcroft-Gault) 131.1 BUN/Creatinine Ratio 22 (6-20) Glucose Level 122 mg/dL (70-99) Calcium Level 9.3 mg/dL (8.5-10.1) Total Bilirubin 0.5 mg/dL (0.2-1.0) Aspartate Amino Transf (AST/SGOT) 23 U/L (15-37) Alanine Aminotransferase (ALT/SGPT) 35 U/L (14-59) Alkaline Phosphatase 156 U/L (46-116) Total Protein 4.8 g/dL (6.4-8.2) Albumin 1.5 g/dL (3.4-5.0) Albumin/Globulin Ratio 0.5 (1.0-1.7) Test 10/30/19 12:38 10/30/19 17:58 10/31/19 00:21 10/31/19 05:35 Glucose (Fingerstick) 302 mg/dL (70-99) 106 mg/dL (70-99) 124 mg/dL (70-99) White Blood Count 10.5 x10^3/uL (4.0-11.0) Red Blood Count 2.48 x10^6/uL (3.50-5.40) Hemoglobin 7.4 g/dL (12.0-15.5) Hematocrit 21.7 % (36.0-47.0) Mean Corpuscular Volume 88 fL (79-100) Mean Corpuscular Hemoglobin 30 pg (25-35) Mean Corpuscular Hemoglobin Concent 34 g/dL (31-37) Red Cell Distribution Width 14.9 % (11.5-14.5) Platelet Count 543 x10^3/uL (140-400) Neutrophils (%) (Auto) 83 % (31-73) Lymphocytes (%) (Auto) 8 % (24-48) Monocytes (%) (Auto) 8 % (0-9) Eosinophils (%) (Auto) 2 % (0-3) Basophils (%) (Auto) 0 % (0-3) Neutrophils # (Auto) 8.7 x10^3/uL (1.8-7.7) Lymphocytes # (Auto) 0.8 x10^3/uL (1.0-4.8) Monocytes # (Auto) 0.8 x10^3/uL (0.0-1.1) Eosinophils # (Auto) 0.2 x10^3/uL (0.0-0.7) Basophils # (Auto) 0.0 x10^3/uL (0.0-0.2) Sodium Level 137 mmol/L (136-145) Potassium Level 4.3 mmol/L (3.5-5.1) Chloride Level 104 mmol/L (98-107) Carbon Dioxide Level 29 mmol/L (21-32) Anion Gap 4 (6-14) Blood Urea Nitrogen 9 mg/dL (7-20) Creatinine 0.5 mg/dL (0.6-1.0) Estimated GFR (Cockcroft-Gault) 131.1 Glucose Level 113 mg/dL (70-99) Calcium Level 8.5 mg/dL (8.5-10.1) Phosphorus Level 3.8 mg/dL (2.6-4.7) Magnesium Level 2.1 mg/dL (1.8-2.4) Test 10/31/19 05:37 Glucose (Fingerstick) 110 mg/dL (70-99) Laboratory Tests Test 10/30/19 12:38 10/30/19 17:58 10/31/19 00:21 10/31/19 05:35 Glucose (Fingerstick) 302 mg/dL (70-99) 106 mg/dL (70-99) 124 mg/dL (70-99) White Blood Count 10.5 x10^3/uL (4.0-11.0) Red Blood Count 2.48 x10^6/uL (3.50-5.40) Hemoglobin 7.4 g/dL (12.0-15.5) Hematocrit 21.7 % (36.0-47.0) Mean Corpuscular Volume 88 fL (79-100) Mean Corpuscular Hemoglobin 30 pg (25-35) Mean Corpuscular Hemoglobin Concent 34 g/dL (31-37) Red Cell Distribution Width 14.9 % (11.5-14.5) Platelet Count 543 x10^3/uL (140-400) Neutrophils (%) (Auto) 83 % (31-73) Lymphocytes (%) (Auto) 8 % (24-48) Monocytes (%) (Auto) 8 % (0-9) Eosinophils (%) (Auto) 2 % (0-3) Basophils (%) (Auto) 0 % (0-3) Neutrophils # (Auto) 8.7 x10^3/uL (1.8-7.7) Lymphocytes # (Auto) 0.8 x10^3/uL (1.0-4.8) Monocytes # (Auto) 0.8 x10^3/uL (0.0-1.1) Eosinophils # (Auto) 0.2 x10^3/uL (0.0-0.7) Basophils # (Auto) 0.0 x10^3/uL (0.0-0.2) Sodium Level 137 mmol/L (136-145) Potassium Level 4.3 mmol/L (3.5-5.1) Chloride Level 104 mmol/L (98-107) Carbon Dioxide Level 29 mmol/L (21-32) Anion Gap 4 (6-14) Blood Urea Nitrogen 9 mg/dL (7-20) Creatinine 0.5 mg/dL (0.6-1.0) Estimated GFR (Cockcroft-Gault) 131.1 Glucose Level 113 mg/dL (70-99) Calcium Level 8.5 mg/dL (8.5-10.1) Phosphorus Level 3.8 mg/dL (2.6-4.7) Magnesium Level 2.1 mg/dL (1.8-2.4) Test 10/31/19 05:37 Glucose (Fingerstick) 110 mg/dL (70-99) Microbiology 10/30/19 Blood Culture - Preliminary, Resulted NO GROWTH AFTER 1 DAY 10/18/19 Gram Stain - Final, Complete 10/18/19 Aerobic and Anaerobic Culture - Final, Complete 10/18/19 Antimicrobic Susceptibility - Final, Complete 10/03/19 Gram Stain - Final, Complete 10/03/19 Aerobic and Anaerobic Culture - Final, Complete 10/01/19 Gram Stain Evaluation - Final, Complete 10/01/19 Respiratory Culture - Final, Complete 10/01/19 Antimicrobic Susceptibility - Final, Complete 09/25/19 Urine Culture - Final, Complete 09/17/19 Gram Stain - Final, Complete 09/17/19 Aerobic Culture - Final, Complete Medications Current Medications Sodium Chloride 1,000 ml @ 1,000 mls/hr Q1H IV Last administered on 07/04/19at 03:00; Start 07/04/19 at 03:00; Stop 07/04/19 at 03:59; Status DC Ondansetron HCl (Zofran) 4 mg 1X ONCE IVP Last administered on 07/04/19at 03:27; Start 07/04/19 at 03:00; Stop 07/04/19 at 03:01; Status DC Morphine Sulfate (Morphine Sulfate) 4 mg 1X ONCE IV ; Start 07/04/19 at 03:00; Stop 07/04/19 at 03:01; Status Cancel Ketorolac Tromethamine (Toradol 30mg Vial) 30 mg 1X ONCE IV Last administered on 07/04/19at 02:54; Start 07/04/19 at 03:00; Stop 07/04/19 at 03:01; Status DC Fentanyl Citrate (Fentanyl 2ml Vial) 25 mcg 1X ONCE IVP Last administered on 07/04/19at 03:23; Start 07/04/19 at 03:30; Stop 07/04/19 at 03:31; Status DC Fentanyl Citrate (Fentanyl 2ml Vial) 100 mcg STK-MED ONCE .ROUTE ; Start 07/04/19 at 03:18; Stop 07/04/19 at 03:18; Status DC Iohexol (Omnipaque 350 Mg/ml) 90 ml 1X ONCE IV Last administered on 07/04/19at 03:25; Start 07/04/19 at 03:30; Stop 07/04/19 at 03:31; Status DC Info (CONTRAST GIVEN -- Rx MONITORING) 1 each PRN DAILY PRN MC SEE COMMENTS; Start 07/04/19 at 03:30; Stop 07/06/19 at 03:29; Status DC Hydromorphone HCl (Dilaudid) 0.5 mg 1X ONCE IV Last administered on 07/04/19at 03:55; Start 07/04/19 at 04:30; Stop 07/04/19 at 04:32; Status DC Ondansetron HCl (Zofran) 4 mg PRN Q8HRS PRN IV NAUSEA/VOMITING 1ST CHOICE; Start 07/04/19 at 05:00; Stop 07/04/19 at 09:27; Status DC Morphine Sulfate (Morphine Sulfate) 2 mg PRN Q2HR PRN IV SEVERE PAIN 7-10 Last administered on 07/05/19at 12:26; Start 07/04/19 at 05:00; Stop 07/05/19 at 14:15; Status DC Sodium Chloride 1,000 ml @ 125 mls/hr Q8H IV Last administered on 07/04/19at 20:56; Start 07/04/19 at 05:00; Stop 07/05/19 at 04:59; Status DC Hydromorphone HCl (Dilaudid) 0.5 mg PRN Q3HRS PRN IV SEVERE PAIN 7-10 Last administered on 07/05/19at 10:06; Start 07/04/19 at 05:00; Stop 07/05/19 at 12:01; Status DC Piperacillin Sod/ Tazobactam Sod 4.5 gm/Sodium Chloride 100 ml @ 200 mls/hr 1X ONCE IV Last administered on 07/04/19at 05:44; Start 07/04/19 at 06:00; Stop 07/04/19 at 06:29; Status DC Ondansetron HCl (Zofran) 4 mg PRN Q4HRS PRN IV NAUSEA/VOMITING 1ST CHOICE Last administered on 10/31/19at 04:30; Start 07/04/19 at 09:30 Insulin Human Lispro (HumaLOG) 0-9 UNITS Q6HRS SQ Last administered on 10/30/19at 12:43; Start 07/04/19 at 09:30 Dextrose (Dextrose 50%-Water Syringe) 12.5 gm PRN Q15MIN PRN IV SEE COMMENTS; Start 07/04/19 at 09:30 Pantoprazole Sodium (PROTONIX VIAL for IV PUSH) 40 mg DAILYAC IVP Last adminis tered on 10/31/19at 09:13; Start 07/04/19 at 11:30 Prochlorperazine Edisylate (Compazine) 10 mg PRN Q6HRS PRN IV NAUSEA/VOMITING, 2nd CHOICE Last administered on 10/30/19at 15:48; Start 07/04/19 at 17:45 Atenolol (Tenormin) 100 mg DAILY PO ; Start 07/05/19 at 09:00; Stop 07/04/19 at 20:08; Status DC Metoprolol Tartrate (Lopressor Vial) 2.5 mg Q6HRS IVP Last administered on 07/05/19at 05:51; Start 07/04/19 at 20:15; Stop 07/05/19 at 10:02; Status DC Metoprolol Tartrate (Lopressor Vial) 5 mg Q6HRS IVP Last administered on 07/14/19at 00:12; Start 07/05/19 at 10:15; Stop 07/16/19 at 08:48; Status DC Hydromorphone HCl (Dilaudid) 1 mg PRN Q3HRS PRN IV SEVERE PAIN 7-10 Last administered on 07/11/19at 05:13; Start 07/05/19 at 12:00; Stop 07/19/19 at 00:25; Status DC Lidocaine HCl (Buffered Lidocaine 1%) 3 ml STK-MED ONCE .ROUTE ; Start 07/05/19 at 12:55; Stop 07/05/19 at 12:56; Status DC Albumin Human 500 ml @ 125 mls/hr 1X ONCE IV Last administered on 07/05/19at 14:33; Start 07/05/19 at 14:30; Stop 07/05/19 at 18:32; Status DC Norepinephrine Bitartrate 8 mg/ Dextrose 258 ml @ 17.299 mls/ hr CONT PRN IV PER PROTOCOL Last administered on 08/02/19at 12:48; Start 07/05/19 at 15:30; Stop 08/05/19 at 09:19; Status DC Sodium Chloride 1,000 ml @ 125 mls/hr Q8H IV Last administered on 07/05/19at 21:04; Start 07/05/19 at 16:00; Stop 07/06/19 at 02:42; Status DC Albumin Human 500 ml @ 125 mls/hr PRN BID PRN IV After every 2L NSS & BP < 90mm Last administered on 10/18/19at 16:06; Start 07/05/19 at 16:00; Stop 10/21/19 at 09:30; Status DC Iohexol (Omnipaque 300 Mg/ml) 60 ml 1X ONCE IV Last administered on 07/05/19at 17:20; Start 07/05/19 at 17:00; Stop 07/05/19 at 17:01; Status DC Info (CONTRAST GIVEN -- Rx MONITORING) 1 each PRN DAILY PRN MC SEE COMMENTS; Start 07/05/19 at 17:00; Stop 07/07/19 at 16:59; Status DC Meropenem 1 gm/ Sodium Chloride 100 ml @ 200 mls/hr Q8HRS IV Last administered on 07/06/19at 05:45; Start 07/05/19 at 20:00; Stop 07/06/19 at 08:48; Status DC Furosemide (Lasix) 40 mg 1X ONCE IVP Last administered on 07/05/19at 22:12; Start 07/05/19 at 22:30; Stop 07/05/19 at 22:31; Status DC Calcium Chloride 1000 mg/Sodium Chloride 110 ml @ 220 mls/hr 1X ONCE IV Last administered on 07/05/19at 22:11; Start 07/05/19 at 22:30; Stop 07/05/19 at 22:59; Status DC Albuterol Sulfate (Ventolin Neb Soln) 2.5 mg 1X ONCE NEB Last administered on 07/06/19at 00:56; Start 07/05/19 at 22:30; Stop 07/05/19 at 22:31; Status DC Insulin Human Regular (HumuLIN R VIAL) 5 unit 1X ONCE IV Last administered on 07/05/19at 22:14; Start 07/05/19 at 22:30; Stop 07/05/19 at 22:31; Status DC Magnesium Sulfate 50 ml @ 25 mls/hr 1X ONCE IV Last administered on 07/06/19at 02:57; Start 07/06/19 at 03:00; Stop 07/06/19 at 04:59; Status DC Calcium Gluconate 1000 mg/Sodium Chloride 110 ml @ 220 mls/hr 1X ONCE IV Last administered on 07/06/19at 02:46; Start 07/06/19 at 03:00; Stop 07/06/19 at 03:29; Status DC Sodium Chloride 1,000 ml @ 200 mls/hr Q5H IV Last administered on 07/06/19at 02:46; Start 07/06/19 at 03:00; Stop 07/06/19 at 10:21; Status DC Calcium Gluconate 1000 mg/Sodium Chloride 110 ml @ 220 mls/hr 1X ONCE IV Last administered on 07/06/19at 03:21; Start 07/06/19 at 03:30; Stop 07/06/19 at 03:59; Status DC Sodium Bicarbonate 50 meq/Sodium Chloride 1,050 ml @ 75 mls/hr Q14H IV Last administered on 07/10/19at 21:10; Start 07/06/19 at 07:30; Stop 07/11/19 at 10:28; Status DC Calcium Gluconate 2000 mg/Sodium Chloride 120 ml @ 220 mls/hr 1X ONCE IV Last administered on 07/06/19at 09:05; Start 07/06/19 at 07:30; Stop 07/06/19 at 08:02; Status DC Lidocaine HCl (Xylocaine-Mpf 1% 2ml Vial) 2 ml STK-MED ONCE .ROUTE ; Start 07/06/19 at 08:47; Stop 07/06/19 at 08:47; Status DC Meropenem 500 mg/ Sodium Chloride 50 ml @ 100 mls/hr Q12HR IV Last administered on 07/11/19at 21:01; Start 07/06/19 at 18:00; Stop 07/12/19 at 07:58; Status DC Lidocaine HCl (Buffered Lidocaine 1%) 3 ml STK-MED ONCE .ROUTE ; Start 07/06/19 at 09:46; Stop 07/06/19 at 09:46; Status DC Lidocaine HCl (Buffered Lidocaine 1%) 6 ml 1X ONCE INJ Last administered on 07/06/19at 10:26; Start 07/06/19 at 10:15; Stop 07/06/19 at 10:16; Status DC Info (Tpn Per Pharmacy) 1 each PRN DAILY PRN MC SEE COMMENTS Last administered on 10/30/19at 09:52; Start 07/06/19 at 12:00 Sodium Chloride 1,000 ml @ 1,000 mls/hr Q1H PRN IV hypotension; Start 07/06/19 at 12:07; Stop 07/06/19 at 18:06; Status DC Diphenhydramine HCl (Benadryl) 25 mg 1X PRN PRN IV ITCHING; Start 07/06/19 at 12:15; Stop 07/07/19 at 12:14; Status DC Diphenhydramine HCl (Benadryl) 25 mg 1X PRN PRN IV ITCHING; Start 07/06/19 at 12:15; Stop 07/07/19 at 12:14; Status DC Sodium Chloride 1,000 ml @ 400 mls/hr Q2H30M PRN IV PATENCY; Start 07/06/19 at 12:07; Stop 07/07/19 at 00:06; Status DC Info (PHARMACY MONITORING -- do not chart) 1 each PRN DAILY PRN MC SEE COMMENTS; Start 07/06/19 at 12:15; Stop 07/08/19 at 08:13; Status DC Sodium Chloride 90 meq/Calcium Gluconate 10 meq/ Multivitamins 10 ml/Chromium/ Copper/Manganese/ Seleni/Zn 1 ml/ Total Parenteral Nutrition/Amino Acids/Dextrose/ Fat Emulsion Intravenous 55.005 ml @ 2.292 mls/hr TPN CONT IV ; Start 07/06/19 at 22:00; Stop 07/06/19 at 12:33; Status DC Info (Tpn Per Pharmacy) 1 each PRN DAILY PRN MC SEE COMMENTS; Start 07/06/19 at 12:30; Status UNV Sodium Chloride 90 meq/Calcium Gluconate 10 meq/ Multivitamins 10 ml/Chromium/ Copper/Manganese/ Seleni/Zn 0.5 ml/ Total Parenteral Nutrition/Amino Acids/Dextrose/ Fat Emulsion Intravenous 1,512 ml @ 63 mls/hr TPN CONT IV Last administered on 07/06/19at 22:06; Start 07/06/19 at 22:00; Stop 07/07/19 at 21:59; Status DC Calcium Carbonate/ Glycine (Tums) 500 mg PRN AFTMEALHC PRN PO INDIGESTION; Start 07/06/19 at 17:45; Stop 08/31/19 at 10:25; Status DC Calcium Gluconate (Calcium Gluconate) 2,000 mg 1X ONCE IVP Last administered on 07/07/19at 02:19; Start 07/07/19 at 02:15; Stop 07/07/19 at 02:16; Status DC Calcium Chloride 3000 mg/Sodium Chloride 1,030 ml @ 50 mls/hr [id number] IV Last administered on 07/09/19at 02:17; Start 07/07/19 at 08:00; Stop 07/09/19 at 15:23; Status DC Lorazepam (Ativan Inj) 1 mg PRN Q4HRS PRN IVP ANXIETY / AGITATION, 2nd choic Last administered on 08/05/19at 03:51; Start 07/07/19 at 09:00; Stop 08/05/19 at 09:19; Status DC Sodium Chloride 1,000 ml @ 1,000 mls/hr Q1H PRN IV hypotension; Start 07/07/19 at 08:56; Stop 07/07/19 at 14:55; Status DC Albumin Human 200 ml @ 200 mls/hr 1X PRN PRN IV Hypotension; Start 07/07/19 at 09:00; Stop 07/07/19 at 14:59; Status DC Diphenhydramine HCl (Benadryl) 25 mg 1X PRN PRN IV ITCHING; Start 07/07/19 at 09:00; Stop 07/08/19 at 08:59; Status DC Diphenhydramine HCl (Benadryl) 25 mg 1X PRN PRN IV ITCHING; Start 07/07/19 at 09:00; Stop 07/08/19 at 08:59; Status DC Sodium Chloride 1,000 ml @ 400 mls/hr Q2H30M PRN IV PATENCY; Start 07/07/19 at 08:56; Stop 07/07/19 at 20:55; Status DC Info (PHARMACY MONITORING -- do not chart) 1 each PRN DAILY PRN MC SEE COMMENTS; Start 07/07/19 at 09:00; Status UNV Info (PHARMACY MONITORING -- do not chart) 1 each PRN DAILY PRN MC SEE COMMENTS; Start 07/07/19 at 09:00; Stop 07/08/19 at 08:13; Status DC Digoxin (Lanoxin) 500 mcg 1X ONCE IV Last administered on 07/07/19at 10:04; Start 07/07/19 at 10:00; Stop 07/07/19 at 10:01; Status DC Digoxin (Lanoxin) 125 mcg 1X ONCE IV Last administered on 07/07/19at 17:10; Start 07/07/19 at 18:00; Stop 07/07/19 at 18:01; Status DC Magnesium Sulfate 100 ml @ 25 mls/hr 1X ONCE IV Last administered on 07/07/19at 12:48; Start 07/07/19 at 13:00; Stop 07/07/19 at 16:59; Status DC Sodium Chloride 90 meq/Magnesium Sulfate 10 meq/ Calcium Gluconate 20 meq/ Multivitamins 10 ml/Chromium/ Copper/Manganese/ Seleni/Zn 0.5 ml/ Total Parenteral Nutrition/Amino Acids/Dextrose/ Fat Emulsion Intravenous 1,512 ml @ 63 mls/hr TPN CONT IV Last administered on 07/07/19at 22:25; Start 07/07/19 at 22:00; Stop 07/08/19 at 21:59; Status DC Sodium Chloride 1,000 ml @ 1,000 mls/hr Q1H PRN IV hypotension; Start 07/08/19 at 08:05; Stop 07/08/19 at 14:04; Status DC Albumin Human 200 ml @ 200 mls/hr 1X ONCE IV Last administered on 07/08/19at 08:57; Start 07/08/19 at 08:15; Stop 07/08/19 at 09:14; Status DC Diphenhydramine HCl (Benadryl) 25 mg 1X PRN PRN IV ITCHING; Start 07/08/19 at 08:15; Stop 07/09/19 at 08:14; Status DC Diphenhydramine HCl (Benadryl) 25 mg 1X PRN PRN IV ITCHING; Start 07/08/19 at 08:15; Stop 07/09/19 at 08:14; Status DC Sodium Chloride 1,000 ml @ 400 mls/hr Q2H30M PRN IV PATENCY; Start 07/08/19 at 08:05; Stop 07/08/19 at 20:04; Status DC Info (PHARMACY MONITORING -- do not chart) 1 each PRN DAILY PRN MC SEE COMMENTS; Start 07/08/19 at 08:15; Stop 07/12/19 at 07:57; Status DC Sodium Chloride 90 meq/Potassium Chloride 15 meq/ Potassium Phosphate 10 mmol/ Magnesium Sulfate 10 meq/Calcium Gluconate 20 meq/ Multivitamins 10 ml/Chromium/ Copper/Manganese/ Seleni/Zn 0.5 ml/ Total Parenteral Nutrition/Amino Acids/Dextrose/ Fat Emulsion Intravenous 1,512 ml @ 63 mls/hr TPN CONT IV Last administered on 07/08/19at 21:01; Start 07/08/19 at 22:00; Stop 07/09/19 at 21:59; Status DC Potassium Chloride/Water 100 ml @ 100 mls/hr 1X ONCE IV Last administered on 07/08/19at 14:09; Start 07/08/19 at 14:00; Stop 07/08/19 at 14:59; Status DC Benzocaine (Hurricaine One) 1 spray 1X ONCE MM Last administered on 07/08/19at 16:38; Start 07/08/19 at 14:30; Stop 07/08/19 at 14:31; Status DC Lidocaine HCl (Glydo (Lidocaine) Jelly) 1 ramu 1X ONCE MM Last administered on 07/08/19at 16:38; Start 07/08/19 at 14:30; Stop 07/08/19 at 14:31; Status DC Linezolid/Dextrose 300 ml @ 300 mls/hr Q12HR IV Last administered on 07/14/19at 21:04; Start 07/08/19 at 20:00; Stop 07/15/19 at 07:50; Status DC Acetaminophen (Tylenol) 650 mg PRN Q6HRS PRN PO MILD PAIN / TEMP; Start 07/09/19 at 03:30; Stop 07/09/19 at 03:36; Status DC Acetaminophen (Tylenol) 650 mg PRN Q6HRS PRN PEG MILD PAIN / TEMP Last administered on 08/04/19at 19:56; Start 07/09/19 at 03:36; Stop 08/31/19 at 10:25; Status DC Sodium Chloride 1,000 ml @ 1,000 mls/hr Q1H PRN IV hypotension; Start 07/09/19 at 07:50; Stop 07/09/19 at 13:49; Status DC Albumin Human 200 ml @ 200 mls/hr 1X PRN PRN IV Hypotension; Start 07/09/19 at 08:00; Stop 07/09/19 at 13:59; Status DC Sodium Chloride (Normal Saline Flush) 10 ml 1X PRN PRN IV AP catheter pack; Start 07/09/19 at 08:00; Stop 07/10/19 at 07:59; Status DC Sodium Chloride (Normal Saline Flush) 10 ml 1X PRN PRN IV SOL[employer] ENGINEER catheter pack; Start 07/09/19 at 08:00; Stop 07/10/19 at 07:59; Status DC Sodium Chloride 1,000 ml @ 400 mls/hr Q2H30M PRN IV PATENCY; Start 07/09/19 at 07:50; Stop 07/09/19 at 19:49; Status DC Info (PHARMACY MONITORING -- do not chart) 1 each PRN DAILY PRN MC SEE COMMENTS; Start 07/09/19 at 08:00; Status UNV Info (PHARMACY MONITORING -- do not chart) 1 each PRN DAILY PRN MC SEE COMMENTS; Start 07/09/19 at 08:00; Stop 07/11/19 at 08:25; Status DC Sodium Chloride 90 meq/Potassium Chloride 15 meq/ Potassium Phosphate 10 mmol/ Magnesium Sulfate 10 meq/Calcium Gluconate 20 meq/ Multivitamins 10 ml/Chromium/ Copper/Manganese/ Seleni/Zn 0.5 ml/ Total Parenteral Nutrition/Amino Acids/Dextrose/ Fat Emulsion Intravenous 1,512 ml @ 63 mls/hr TPN CONT IV Last administered on 07/09/19at 20:57; Start 07/09/19 at 22:00; Stop 07/10/19 at 21:59; Status DC Sodium Chloride 90 meq/Potassium Chloride 15 meq/ Potassium Phosphate 15 mmol/ Magnesium Sulfate 10 meq/Calcium Gluconate 20 meq/ Multivitamins 10 ml/Chromium/ Copper/Manganese/ Seleni/Zn 0.5 ml/ Total Parenteral Nutrition/Amino Acids/Dextrose/ Fat Emulsion Intravenous 1,512 ml @ 63 mls/hr TPN CONT IV ; Start 07/10/19 at 22:00; Stop 07/10/19 at 14:16; Status DC Sodium Chloride 90 meq/Potassium Chloride 15 meq/ Potassium Phosphate 15 mmol/ M agnesium Sulfate 10 meq/Calcium Gluconate 20 meq/ Multivitamins 10 ml/Chromium/ Copper/Manganese/ Seleni/Zn 0.5 ml/ Total Parenteral Nutrition/Amino Acids/Dextrose/ Fat Emulsion Intravenous 1,200 ml @ 50 mls/hr TPN CONT IV ; Start 07/10/19 at 22:00; Stop 07/10/19 at 14:17; Status DC Sodium Chloride 90 meq/Potassium Chloride 15 meq/ Potassium Phosphate 10 mmol/ Magnesium Sulfate 10 meq/Calcium Gluconate 20 meq/ Multivitamins 10 ml/Chromium/ Copper/Manganese/ Seleni/Zn 0.5 ml/ Total Parenteral Nutrition/Amino Acids/Dextrose/ Fat Emulsion Intravenous 1,200 ml @ 50 mls/hr TPN CONT IV Last administered on 07/10/19at 23:29; Start 07/10/19 at 22:00; Stop 07/11/19 at 21:59; Status DC Sodium Chloride 1,000 ml @ 1,000 mls/hr Q1H PRN IV hypotension; Start 07/11/19 at 07:28; Stop 07/11/19 at 13:27; Status DC Albumin Human 200 ml @ 200 mls/hr 1X ONCE IV Last administered on 07/11/19at 0 8:51; Start 07/11/19 at 07:30; Stop 07/11/19 at 08:29; Status DC Diphenhydramine HCl (Benadryl) 25 mg 1X PRN PRN IV ITCHING; Start 07/11/19 at 07:30; Stop 07/12/19 at 07:29; Status DC Diphenhydramine HCl (Benadryl) 25 mg 1X PRN PRN IV ITCHING; Start 07/11/19 at 07:30; Stop 07/12/19 at 07:29; Status DC Sodium Chloride 1,000 ml @ 400 mls/hr Q2H30M PRN IV PATENCY; Start 07/11/19 at 07:28; Stop 07/11/19 at 19:27; Status DC Info (PHARMACY MONITORING -- do not chart) 1 each PRN DAILY PRN MC SEE COMMENTS; Start 07/11/19 at 07:30; Stop 07/22/19 at 13:01; Status DC Metronidazole 100 ml @ 100 mls/hr Q6HRS IV Last administered on 07/27/19at 06:26; Start 07/11/19 at 08:30; Stop 07/27/19 at 09:58; Status DC Micafungin Sodium 100 mg/Dextrose 100 ml @ 100 mls/hr Q24H IV Last administered on 08/18/19at 08:18; Start 07/11/19 at 09:00; Stop 08/18/19 at 20:58; Status DC Propofol 0 ml @ As Directed STK-MED ONCE IV ; Start 07/11/19 at 07:53; Stop 07/11/19 at 07:53; Status DC Etomidate (Amidate) 20 mg STK-MED ONCE IV ; Start 07/11/19 at 07:53; Stop 07/11/19 at 07:54; Status DC Midazolam HCl (Versed) 5 mg STK-MED ONCE .ROUTE ; Start 07/11/19 at 07:57; Stop 07/11/19 at 07:57; Status DC Fentanyl Citrate 30 ml @ 0 mls/hr CONT PRN IV SEE PROTOCOL Last administered on 08/05/19at 06:12; Start 07/11/19 at 08:15; Stop 08/05/19 at 09:19; Status DC Artificial Tears (Artificial Tears) 1 drop PRN Q1HR PRN OU DRY EYE, 1st choice; Start 07/11/19 at 08:15; Stop 08/17/19 at 05:31; Status DC Midazolam HCl 50 mg/Sodium Chloride 50 ml @ 0 mls/hr CONT PRN IV SEE PROTOCOL Last administered on 07/14/19at 22:39; Start 07/11/19 at 08:15; Stop 07/16/19 at 15:59; Status DC Etomidate (Amidate) 8 mg 1X ONCE IV Last administered on 07/11/19at 08:33; Start 07/11/19 at 08:30; Stop 07/11/19 at 08:31; Status DC Succinylcholine Chloride (Anectine) 120 mg 1X ONCE IV Last administered on 07/11/19at 08:34; Start 07/11/19 at 08:30; Stop 07/11/19 at 08:31; Status DC Midazolam HCl (Versed) 5 mg 1X ONCE IV ; Start 07/11/19 at 08:30; Stop 07/11/19 at 08:31; Status DC Potassium Chloride 15 meq/ Bicarbonate Dialysis Soln w/ out KCl 5,007.5 ml @ 1,000 mls/ hr Q5H1M IV Last administered on 07/12/19at 11:11; Start 07/11/19 at 12:00; Stop 07/12/19 at 11:15; Status DC Potassium Chloride 15 meq/ Bicarbonate Dialysis Soln w/ out KCl 5,007.5 ml @ 1,000 mls/ hr Q5H1M IV Last administered on 07/12/19at 11:12; Start 07/11/19 at 12:00; Stop 07/12/19 at 11:17; Status DC Potassium Chloride 15 meq/ Bicarbonate Dialysis Soln w/ out KCl 5,007.5 ml @ 1,000 mls/ hr Q5H1M IV Last administered on 07/12/19at 11:11; Start 07/11/19 at 12:00; Stop 07/12/19 at 11:19; Status DC Sodium Chloride 90 meq/Potassium Chloride 15 meq/ Potassium Phosphate 10 mmol/ Magnesium Sulfate 10 meq/Calcium Gluconate 20 meq/ Multivitamins 10 ml/Chromium/ Copper/Manganese/ Seleni/Zn 0.5 ml/ Total Parenteral Nutrition/Amino Acids/Dextrose/ Fat Emulsion Intravenous 1,400 ml @ 58.333 mls/ hr TPN CONT IV Last administered on 07/11/19at 21:42; Start 07/11/19 at 22:00; Stop 07/12/19 at 21:59; Status DC Heparin Sodium (Porcine) (Heparin Sodium) 5,000 unit Q8HRS SQ Last administered on 07/16/19at 05:55; Start 07/11/19 at 15:00; Stop 07/16/19 at 13:28; Status DC Meropenem 500 mg/ Sodium Chloride 50 ml @ 100 mls/hr Q6HRS IV Last administered on 07/13/19at 06:00; Start 07/12/19 at 09:00; Stop 07/13/19 at 07:29; Status DC Potassium Phosphate 20 mmol/ Sodium Chloride 106.6667 ml @ 51.667 m... 1X ONCE IV Last administered on 07/12/19at 11:22; Start 07/12/19 at 10:15; Stop 07/12/19 at 12:18; Status DC Acetaminophen (Tylenol Supp) 650 mg PRN Q6HRS PRN UT MILD PAIN / TEMP > 100.3'F Last administered on 10/30/19at 17:59; Start 07/12/19 at 10:30 Potassium Chloride/Water 100 ml @ 100 mls/hr Q1H IV Last administered on 07/12/19at 12:12; Start 07/12/19 at 11:00; Stop 07/12/19 at 12:59; Status DC Potassium Chloride 20 meq/ Bicarbonate Dialysis Soln w/ out KCl 5,010 ml @ 1,000 mls/hr Q5H1M IV Last administered on 07/13/19at 08:48; Start 07/12/19 at 12:00; Stop 07/13/19 at 13:03; Status DC Potassium Chloride 20 meq/ Bicarbonate Dialysis Soln w/ out KCl 5,010 ml @ 1,000 mls/hr Q5H1M IV Last administered on 07/17/19at 14:52; Start 07/12/19 at 11:30; Stop 07/17/19 at 19:59; Status DC Potassium Chloride 20 meq/ Bicarbonate Dialysis Soln w/ out KCl 5,010 ml @ 1,000 mls/hr Q5H1M IV Last administered on 07/17/19at 14:53; Start 07/12/19 at 11:30; Stop 07/17/19 at 19:59; Status DC Sodium Chloride 90 meq/Potassium Chloride 15 meq/ Potassium Phosphate 15 mmol/ Magnesium Sulfate 10 meq/Calcium Gluconate 15 meq/ Multivitamins 10 ml/Chromium/ Copper/Manganese/ Seleni/Zn 0.5 ml/ Total Parenteral Nutrition/Amino Acids/Dextrose/ Fat Emulsion Intravenous 1,400 ml @ 58.333 mls/ hr TPN CONT IV Last administered on 07/12/19at 22:17; Start 07/12/19 at 22:00; Stop 07/13/19 at 21:59; Status DC Cefepime HCl (Maxipime) 2 gm Q12HR IVP Last administered on 07/26/19at 20:56; Start 07/13/19 at 09:00; Stop 07/27/19 at 09:58; Status DC Daptomycin 500 mg/ Sodium Chloride 50 ml @ 100 mls/hr Q48H IV Last administered on 07/29/19at 09:57; Start 07/13/19 at 08:30; Stop 07/29/19 at 10:07; Status DC Lidocaine HCl (Buffered Lidocaine 1%) 3 ml 1X ONCE INJ Last administered on 07/13/19at 10:27; Start 07/13/19 at 10:30; Stop 07/13/19 at 10:31; Status DC Potassium Phosphate 20 mmol/ Sodium Chloride 106.6667 ml @ 51.667 m... 1X ONCE IV Last administered on 07/13/19at 12:51; Start 07/13/19 at 13:00; Stop 07/13/19 at 15:03; Status DC Sodium Chloride 90 meq/Potassium Chloride 15 meq/ Potassium Phosphate 18 mmol/ Magnesium Sulfate 8 meq/Calcium Gluconate 15 meq/ Multivitamins 10 ml/Chromium/ Copper/Manganese/ Seleni/Zn 0.5 ml/ Total Parenteral Nutrition/Amino Acids/Dextrose/ Fat Emulsion Intravenous 1,400 ml @ 58.333 mls/ hr TPN CONT IV Last administered on 07/13/19at 22:16; Start 07/13/19 at 22:00; Stop 07/14/19 at 21:59; Status DC Potassium Chloride 20 meq/ Bicarbonate Dialysis Soln w/ out KCl 5,010 ml @ 1,000 mls/hr Q5H1M IV Last administered on 07/17/19at 14:54; Start 07/13/19 at 16:00; Stop 07/17/19 at 19:59; Status DC Multi-Ingred Cream/Lotion/Oil/ Oint (Artificial Tears Eye Ointment) 1 ramu PRN Q1HR PRN OU DRY EYE, 2nd choice Last administered on 08/01/19at 08:19; Start 07/13/19 at 17:30; Stop 09/21/19 at 14:39; Status DC Sodium Chloride 90 meq/Potassium Chloride 15 meq/ Potassium Phosphate 18 mmol/ Magnesium Sulfate 8 meq/Calcium Gluconate 15 meq/ Multivitamins 10 ml/Chromium/ Copper/Manganese/ Seleni/Zn 0.5 ml/ Total Parenteral Nutrition/Amino Acids/Dextrose/ Fat Emulsion Intravenous 1,400 ml @ 58.333 mls/ hr TPN CONT IV Last administered on 07/14/19at 22:00; Start 07/14/19 at 22:00; Stop 07/15/19 at 21:59; Status DC Albumin Human 500 ml @ 125 mls/hr 1X ONCE IV ; Start 07/14/19 at 14:15; Stop 07/14/19 at 18:14; Status DC Sodium Chloride 90 meq/Potassium Chloride 15 meq/ Potassium Phosphate 18 mmol/ Magnesium Sulfate 8 meq/Calcium Gluconate 15 meq/ Multivitamins 10 ml/Chromium/ Copper/Manganese/ Seleni/Zn 0.5 ml/ Insulin Human Regular 10 unit/ Total Parenteral Nutrition/Amino Acids/Dextrose/ Fat Emulsion Intravenous 1,400 ml @ 58.333 mls/ hr TPN CONT IV Last administered on 07/15/19at 21:43; Start 07/15/19 at 22:00; Stop 07/16/19 at 21:59; Status DC Lidocaine HCl (Buffered Lidocaine 1%) 3 ml STK-MED ONCE .ROUTE ; Start 07/13/19 at 10:00; Stop 07/15/19 at 13:57; Status DC Midazolam HCl 100 mg/Sodium Chloride 100 ml @ 7 mls/hr CONT PRN IV SEE PROTOCOL Last administered on 07/27/19at 15:35; Start 07/16/19 at 16:00; Stop 09/21/19 at 14:38; Status DC Sodium Chloride 90 meq/Potassium Chloride 15 meq/ Potassium Phosphate 18 mmol/ Magnesium Sulfate 8 meq/Calcium Gluconate 15 meq/ Multivitamins 10 ml/Chromium/ Copper/Manganese/ Seleni/Zn 0.5 ml/ Insulin Human Regular 15 unit/ Total Parenteral Nutrition/Amino Acids/Dextrose/ Fat Emulsion Intravenous 1,400 ml @ 58.333 mls/ hr TPN CONT IV Last administered on 07/16/19at 20:34; Start 07/16/19 at 22:00; Stop 07/17/19 at 21:59; Status DC Info (Icu Electrolyte Protocol) 1 ea CONT PRN PRN MC PER PROTOCOL; Start 07/17/19 at 13:15 Sodium Chloride 90 meq/Potassium Chloride 15 meq/ Potassium Phosphate 18 mmol/ Magnesium Sulfate 8 meq/Calcium Gluconate 15 meq/ Multivitamins 10 ml/Chromium/ Copper/Manganese/ Seleni/Zn 0.5 ml/ Insulin Human Regular 15 unit/ Total Parenteral Nutrition/Amino Acids/Dextrose/ Fat Emulsion Intravenous 1,400 ml @ 58.333 mls/ hr TPN CONT IV Last administered on 07/17/19at 22:05; Start 07/17/19 at 22:00; Stop 07/18/19 at 21:59; Status DC Potassium Chloride 15 meq/ Bicarbonate Dialysis Soln w/ out KCl 5,007.5 ml @ 1,000 mls/ hr Q5H1M IV Last administered on 07/20/19at 18:14; Start 07/17/19 at 20:00; Stop 07/21/19 at 13:08; Status DC Potassium Chloride 15 meq/ Bicarbonate Dialysis Soln w/ out KCl 5,007.5 ml @ 1,000 mls/ hr Q5H1M IV Last administered on 07/20/19at 18:14; Start 07/17/19 at 20:00; Stop 07/21/19 at 13:08; Status DC Potassium Chloride 15 meq/ Bicarbonate Dialysis Soln w/ out KCl 5,007.5 ml @ 1,000 mls/ hr Q5H1M IV Last administered on 07/20/19at 18:14; Start 07/17/19 at 20:00; Stop 07/21/19 at 13:08; Status DC Iohexol (Omnipaque 240 Mg/ml) 30 ml 1X ONCE PO Last administered on 07/18/19at 11:30; Start 07/18/19 at 11:30; Stop 07/18/19 at 11:33; Status DC Info (CONTRAST GIVEN -- Rx MONITORING) 1 each PRN DAILY PRN MC SEE COMMENTS; Start 07/18/19 at 11:45; Stop 07/20/19 at 11:44; Status DC Sodium Chloride 90 meq/Potassium Chloride 15 meq/ Potassium Phosphate 18 mmol/ Magnesium Sulfate 8 meq/Calcium Gluconate 15 meq/ Multivitamins 10 ml/Chromium/ Copper/Manganese/ Seleni/Zn 0.5 ml/ Insulin Human Regular 15 unit/ Total Parenteral Nutrition/Amino Acids/Dextrose/ Fat Emulsion Intravenous 1,400 ml @ 58.333 mls/ hr TPN CONT IV Last administered on 07/18/19at 21:47; Start 07/18/19 at 22:00; Stop 07/19/19 at 21:59; Status DC Sodium Chloride 90 meq/Potassium Chloride 15 meq/ Potassium Phosphate 18 mmol/ Magnesium Sulfate 8 meq/Calcium Gluconate 15 meq/ Multivitamins 10 ml/Chromium/ Copper/Manganese/ Seleni/Zn 0.5 ml/ Insulin Human Regular 20 unit/ Total Parenteral Nutrition/Amino Acids/Dextrose/ Fat Emulsion Intravenous 1,400 ml @ 58.333 mls/ hr TPN CONT IV Last administered on 07/19/19at 21:36; Start 07/19/19 at 22:00; Stop 07/20/19 at 21:59; Status DC Alteplase, Recombinant (Cathflo For Central Catheter Clearance) 1 mg 1X ONCE INT CAT Last administered on 07/19/19at 20:03; Start 07/19/19 at 19:30; Stop 07/19/19 at 19:46; Status DC Alteplase, Recombinant (Cathflo For Central Catheter Clearance) 1 mg 1X ONCE INT CAT Last administered on 07/19/19at 22:05; Start 07/19/19 at 22:00; Stop 07/19/19 at 22:01; Status DC Sodium Chloride 90 meq/Potassium Chloride 15 meq/ Potassium Phosphate 18 mmol/ Magnesium Sulfate 8 meq/Calcium Gluconate 15 meq/ Multivitamins 10 ml/Chromium/ Copper/Manganese/ Seleni/Zn 0.5 ml/ Insulin Human Regular 20 unit/ Total Parenteral Nutrition/Amino Acids/Dextrose/ Fat Emulsion Intravenous 1,400 ml @ 58.333 mls/ hr TPN CONT IV Last administered on 07/20/19at 21:30; Start 07/20/19 at 22:00; Stop 07/21/19 at 21:59; Status DC Dexmedetomidine HCl 400 mcg/ Sodium Chloride 100 ml @ 0 mls/hr CONT PRN IV ANXIETY / AGITATION Last administered on 09/17/19at 12:57; Start 07/21/19 at 08: 15; Stop 09/17/19 at 18:31; Status DC Sodium Chloride 500 ml @ 500 mls/hr 1X PRN PRN IV ELEVATED BP, SEE COMMENTS; Start 07/21/19 at 08:15 Atropine Sulfate (ATROPINE 0.5mg SYRINGE) 0.5 mg PRN Q5MIN PRN IV SEE COMMENTS; Start 07/21/19 at 08:15 Furosemide (Lasix) 20 mg 1X ONCE IVP Last administered on 07/21/19at 08:19; Start 07/21/19 at 08:15; Stop 07/21/19 at 08:16; Status DC Lidocaine HCl (Buffered Lidocaine 1%) 3 ml STK-MED ONCE .ROUTE ; Start 07/21/19 at 08:39; Stop 07/21/19 at 08:39; Status DC Lidocaine HCl (Buffered Lidocaine 1%) 6 ml 1X ONCE INJ Last administered on 07/21/19at 09:05; Start 07/21/19 at 09:00; Stop 07/21/19 at 09:06; Status DC Sodium Chloride 90 meq/Potassium Chloride 15 meq/ Potassium Phosphate 18 mmol/ Magnesium Sulfate 8 meq/Calcium Gluconate 15 meq/ Multivitamins 10 ml/Chromium/ Copper/Manganese/ Seleni/Zn 0.5 ml/ Insulin Human Regular 20 unit/ Total Parenteral Nutrition/Amino Acids/Dextrose/ Fat Emulsion Intravenous 1,400 ml @ 58.333 mls/ hr TPN CONT IV Last administered on 07/21/19at 22:45; Start 07/21/19 at 22:00; Stop 07/22/19 at 21:59; Status DC Sodium Chloride 1,000 ml @ 1,000 mls/hr Q1H PRN IV hypotension; Start 07/22/19 at 07:30; Stop 07/22/19 at 13:29; Status DC Albumin Human 200 ml @ 200 mls/hr 1X PRN PRN IV Hypotension Last administered on 07/22/19at 09:36; Start 07/22/19 at 07:30; Stop 07/22/19 at 13:29; Status DC Sodium Chloride (Normal Saline Flush) 10 ml 1X PRN PRN IV AP catheter pack; Start 07/22/19 at 07:30; Stop 07/22/19 at 21:29; Status DC Sodium Chloride (Normal Saline Flush) 10 ml 1X PRN PRN IV [employer] ENG[employer]ER catheter pack; Start 07/22/19 at 07:30; Stop 07/23/19 at 07:29; Status DC Sodium Chloride 1,000 ml @ 400 mls/hr Q2H30M PRN IV PATENCY; Start 07/22/19 at 07:30; Stop 07/22/19 at 19:29; Status DC Info (PHARMACY MONITORING -- do not chart) 1 each PRN DAILY PRN MC SEE COMMENTS; Start 07/22/19 at 07:30; Stop 07/22/19 at 13:02; Status DC Info (PHARMACY MONITORING -- do not chart) 1 each PRN DAILY PRN MC SEE COMMENTS; Start 07/22/19 at 07:30; Stop 07/24/19 at 12:45; Status DC Sodium Chloride 90 meq/Potassium Chloride 15 meq/ Potassium Phosphate 10 mmol/ Magnesium Sulfate 8 meq/Calcium Gluconate 15 meq/ Multivitamins 10 ml/Chromium/ Copper/Manganese/ Seleni/Zn 0.5 ml/ Insulin Human Regular 25 unit/ Total Parenteral Nutrition/Amino Acids/Dextrose/ Fat Emulsion Intravenous 1,400 ml @ 58.333 mls/ hr TPN CONT IV Last administered on 07/22/19at 22:19; Start 07/22/19 at 22:00; Stop 07/23/19 at 21:59; Status DC Heparin Sodium (Porcine) (Heparin Sodium) 5,000 unit Q12HR SQ Last administered on 08/14/19at 08:59; Start 07/22/19 at 21:00; Stop 08/14/19 at 10:05; Status DC Ondansetron HCl (Zofran) 4 mg PRN Q6HRS PRN IV NAUSEA/VOMITING; Start 07/25/19 at 07:00; Stop 07/26/19 at 06:59; Status DC Fentanyl Citrate (Fentanyl 2ml Vial) 25 mcg PRN Q5MIN PRN IV MILD PAIN 1-3; Start 07/25/19 at 07:00; Stop 07/26/19 at 06:59; Status DC Fentanyl Citrate (Fentanyl 2ml Vial) 50 mcg PRN Q5MIN PRN IV MODERATE TO SEVERE PAIN; Start 07/25/19 at 07:00; Stop 07/26/19 at 06:59; Status DC Ringer's Solution 1,000 ml @ 30 mls/hr Q24H IV ; Start 07/25/19 at 07:00; Stop 07/25/19 at 18:59; Status DC Lidocaine HCl (Xylocaine-Mpf 1% 2ml Vial) 2 ml PRN 1X PRN ID PRIOR TO IV START; Start 07/25/19 at 07:00; Stop 07/26/19 at 06:59; Status DC Prochlorperazine Edisylate (Compazine) 5 mg PACU PRN PRN IV NAUSEA, MRX1; Start 07/25/19 at 07:00; Stop 07/26/19 at 06:59; Status DC Sodium Chloride 1,000 ml @ 1,000 mls/hr Q1H PRN IV hypotension; Start 07/23/19 at 09:10; Stop 07/23/19 at 15:09; Status DC Albumin Human 200 ml @ 200 mls/hr 1X PRN PRN IV Hypotension Last administered on 07/23/19at 10:10; Start 07/23/19 at 09:15; Stop 07/23/19 at 15:14; Status DC Sodium Chloride 1,000 ml @ 400 mls/hr Q2H30M PRN IV PATENCY; Start 07/23/19 at 09:10; Stop 07/23/19 at 21:09; Status DC Info (PHARMACY MONITORING -- do not chart) 1 each PRN DAILY PRN MC SEE COMMENTS; Start 07/23/19 at 09:15; Stop 07/24/19 at 12:45; Status DC Info (PHARMACY MONITORING -- do not chart) 1 each PRN DAILY PRN MC SEE COMMENTS; Start 07/23/19 at 09:15; Stop 07/24/19 at 12:45; Status DC Sodium Chloride 90 meq/Potassium Chloride 15 meq/ Potassium Phosphate 10 mmol/ Magnesium Sulfate 8 meq/Calcium Gluconate 15 meq/ Multivitamins 10 ml/Chromium/ Copper/Manganese/ Seleni/Zn 0.5 ml/ Insulin Human Regular 25 unit/ Total Parenteral Nutrition/Amino Acids/Dextrose/ Fat Emulsion Intravenous 1,400 ml @ 58.333 mls/ hr TPN CONT IV Last administered on 07/23/19at 22:10; Start 07/23/19 at 22:00; Stop 07/24/19 at 21:59; Status DC Magnesium Sulfate 50 ml @ 25 mls/hr PRN DAILY PRN IV for Mag < 1.7 on am labs Last administered on 10/06/19at 10:57; Start 07/24/19 at 09:15 Sodium Chloride 90 meq/Potassium Chloride 15 meq/ Potassium Phosphate 10 mmol/ Magnesium Sulfate 8 meq/Calcium Gluconate 15 meq/ Multivitamins 10 ml/Chromium/ Copper/Manganese/ Seleni/Zn 0.5 ml/ Insulin Human Regular 25 unit/ Total Parenteral Nutrition/Amino Acids/Dextrose/ Fat Emulsion Intravenous 1,400 ml @ 58.333 mls/ hr TPN CONT IV Last administered on 07/24/19at 21:20; Start 07/24/19 at 22:00; Stop 07/25/19 at 21:59; Status DC Sodium Chloride 1,000 ml @ 1,000 mls/hr Q1H PRN IV hypotension; Start 07/24/19 at 12:23; Stop 07/24/19 at 18:22; Status DC Albumin Human 200 ml @ 200 mls/hr 1X ONCE IV Last administered on 07/24/19at 13:34; Start 07/24/19 at 12:30; Stop 07/24/19 at 13:29; Status DC Diphenhydramine HCl (Benadryl) 25 mg 1X PRN PRN IV ITCHING; Start 07/24/19 at 12:30; Stop 07/25/19 at 12:29; Status DC Diphenhydramine HCl (Benadryl) 25 mg 1X PRN PRN IV ITCHING; Start 07/24/19 at 12:30; Stop 07/25/19 at 12:29; Status DC Info (PHARMACY MONITORING -- do not chart) 1 each PRN DAILY PRN MC SEE COMMENTS; Start 07/24/19 at 12:30; Status Cancel Bupivacaine HCl/ Epinephrine Bitart (Sensorcain-Epi 0.5%-1:[id number] Mpf) 30 ml STK-MED ONCE .ROUTE Last administered on 07/25/19at 11:44; Start 07/25/19 at 11:00; Stop 07/25/19 at 11:01; Status DC Cellulose (Surgicel Fibrillar 1x2) 1 each STK-MED ONCE .ROUTE ; Start 07/25/19 at 11:00; Stop 07/25/19 at 11:01; Status DC Sodium Chloride 90 meq/Potassium Chloride 15 meq/ Potassium Phosphate 10 mmol/ Magnesium Sulfate 12 meq/Calcium Gluconate 15 meq/ Multivitamins 10 ml/Chromium/ Copper/Manganese/ Seleni/Zn 0.5 ml/ Insulin Human Regular 25 unit/ Total Parenteral Nutrition/Amino Acids/Dextrose/ Fat Emulsion Intravenous 1,400 ml @ 58.333 mls/ hr TPN CONT IV Last administered on 07/25/19at 22:24; Start 07/25/19 at 22:00; Stop 07/26/19 at 21:59; Status DC Propofol 20 ml @ As Directed STK-MED ONCE IV ; Start 07/25/19 at 11:07; Stop 07/25/19 at 11:07; Status DC Cellulose (Surgicel Hemostat 4x8) 1 each STK-MED ONCE .ROUTE Last administered on 07/25/19at 11:44; Start 07/25/19 at 11:55; Stop 07/25/19 at 11:56; Status DC Sevoflurane (Ultane) 60 ml STK-MED ONCE IH ; Start 07/25/19 at 12:46; Stop 07/25/19 at 12:46; Status DC Sodium Chloride 1,000 ml @ 1,000 mls/hr Q1H PRN IV hypotension; Start 07/25/19 at 13:51; Stop 07/25/19 at 19:50; Status DC Albumin Human 200 ml @ 200 mls/hr 1X PRN PRN IV Hypotension Last administered on 07/25/19at 14:51; Start 07/25/19 at 14:00; Stop 07/25/19 at 19:59; Status DC Diphenhydramine HCl (Benadryl) 25 mg 1X PRN PRN IV ITCHING; Start 07/25/19 at 14:00; Stop 07/26/19 at 13:59; Status DC Diphenhydramine HCl (Benadryl) 25 mg 1X PRN PRN IV ITCHING; Start 07/25/19 at 14:00; Stop 07/26/19 at 13:59; Status DC Sodium Chloride 1,000 ml @ 400 mls/hr Q2H30M PRN IV PATENCY; Start 07/25/19 at 13:51; Stop 07/26/19 at 01:50; Status DC Info (PHARMACY MONITORING -- do not chart) 1 each PRN DAILY PRN MC SEE COMMENTS; Start 07/25/19 at 14:00; Stop 07/28/19 at 08:16; Status DC Heparin Sodium (Porcine) (Hep Lock Adult) 500 unit STK-MED ONCE IVP ; Start 07/26/19 at 09:29; Stop 07/26/19 at 09:30; Status DC Sodium Chloride 1,000 ml @ 1,000 mls/hr Q1H PRN IV hypotension; Start 07/26/19 at 10:43; Stop 07/26/19 at 16:42; Status DC Sodium Chloride 1,000 ml @ 400 mls/hr Q2H30M PRN IV PATENCY; Start 07/26/19 at 10:43; Stop 07/26/19 at 22:42; Status DC Info (PHARMACY MONITORING -- do not chart) 1 each PRN DAILY PRN MC SEE COMMENTS; Start 07/26/19 at 10:45; Status UNV Info (PHARMACY MONITORING -- do not chart) 1 each PRN DAILY PRN MC SEE COMMENTS; Start 07/26/19 at 10:45; Status UNV Sodium Chloride 90 meq/Potassium Chloride 15 meq/ Magnesium Sulfate 12 meq/Calcium Gluconate 15 meq/ Multivitamins 10 ml/Chromium/ Copper/Manganese/ Seleni/Zn 0.5 ml/ Insulin Human Regular 25 unit/ Total Parenteral Nutrition/Amino Acids/Dextrose/ Fat Emulsion Intravenous 1,400 ml @ 58.333 mls/ hr TPN CONT IV Last administered on 07/26/19at 22:13; Start 07/26/19 at 22:00; Stop 07/27/19 at 21:59; Status DC Sodium Chloride 1,000 ml @ 1,000 mls/hr Q1H PRN IV hypotension; Start 07/27/19 at 07:50; Stop 07/27/19 at 13:49; Status DC Albumin Human 200 ml @ 200 mls/hr 1X ONCE IV ; Start 07/27/19 at 08:00; Stop 07/27/19 at 08:53; Status DC Diphenhydramine HCl (Benadryl) 25 mg 1X PRN PRN IV ITCHING; Start 07/27/19 at 08:00; Stop 07/28/19 at 07:59; Status DC Diphenhydramine HCl (Benadryl) 25 mg 1X PRN PRN IV ITCHING; Start 07/27/19 at 08:00; Stop 07/28/19 at 07:59; Status DC Info (PHARMACY MONITORING -- do not chart) 1 each PRN DAILY PRN MC SEE COMMENTS; Start 07/27/19 at 08:00; Stop 07/28/19 at 08:16; Status DC Albumin Human 50 ml @ 50 mls/hr 1X ONCE IV ; Start 07/27/19 at 08:53; Stop 07/27/19 at 08:56; Status DC Albumin Human 200 ml @ 50 mls/hr PRN 1X PRN IV HYPOTENSION Last administered on 08/02/19at 11:54; Start 07/27/19 at 09:00; Stop 09/08/19 at 11:14; Status DC Meropenem 500 mg/ Sodium Chloride 50 ml @ 100 mls/hr Q12H IV Last administered on 08/16/19at 10:45; Start 07/27/19 at 10:00; Stop 08/16/19 at 12:37; Status DC Sodium Chloride 90 meq/Magnesium Sulfate 12 meq/ Calcium Gluconate 15 meq/ Multivitamins 10 ml/Chromium/ Copper/Manganese/ Seleni/Zn 0.5 ml/ Insulin Human Regular 25 unit/ Total Parenteral Nutrition/Amino Acids/Dextrose/ Fat Emulsion Intravenous 1,400 ml @ 58.333 mls/ hr TPN CONT IV Last administered on 07/27/19at 21:41; Start 07/27/19 at 22:00; Stop 07/28/19 at 21:59; Status DC Sodium Chloride 1,000 ml @ 1,000 mls/hr Q1H PRN IV hypotension; Start 07/28/19 at 07:58; Stop 07/28/19 at 13:57; Status DC Albumin Human 200 ml @ 200 mls/hr 1X PRN PRN IV Hypotension Last administered on 07/28/19at 09:30; Start 07/28/19 at 08:00; Stop 07/28/19 at 13:59; Status DC Sodium Chloride 1,000 ml @ 400 mls/hr Q2H30M PRN IV PATENCY; Start 07/28/19 at 07:58; Stop 07/28/19 at 19:57; Status DC Info (PHARMACY MONITORING -- do not chart) 1 each PRN DAILY PRN MC SEE COMMENTS; Start 07/28/19 at 08:00; Status Cancel Info (PHARMACY MONITORING -- do not chart) 1 each PRN DAILY PRN MC SEE COMMENTS; Start 07/28/19 at 08:15; Status UNV Sodium Chloride 90 meq/Potassium Phosphate 5 mmol/ Magnesium Sulfate 12 meq/Calcium Gluconate 15 meq/ Multivitamins 10 ml/Chromium/ Copper/Manganese/ Seleni/Zn 0.5 ml/ Insulin Human Regular 30 unit/ Total Parenteral Nutrition/Amino Acids/Dextrose/ Fat Emulsion Intravenous 1,400 ml @ 58.333 mls/ hr TPN CONT IV Last administered on 07/28/19at 22:08; Start 07/28/19 at 22:00; Stop 07/29/19 at 21:59; Status DC Linezolid/Dextrose 300 ml @ 300 mls/hr Q12HR IV Last administered on 08/08/19at 20:40; Start 07/29/19 at 11:00; Stop 08/09/19 at 08:10; Status DC Sodium Chloride 90 meq/Potassium Phosphate 15 mmol/ Magnesium Sulfate 12 meq/Calcium Gluconate 15 meq/ Multivitamins 10 ml/Chromium/ Copper/Manganese/ Seleni/Zn 0.5 ml/ Insulin Human Regular 30 unit/ Total Parenteral Nutrition/Amino Acids/Dextrose/ Fat Emulsion Intravenous 1,400 ml @ 58.333 mls/ hr TPN CONT IV Last administered on 07/29/19at 21:49; Start 07/29/19 at 22:00; Stop 07/30/19 at 21:59; Status DC Sodium Chloride 90 meq/Potassium Phosphate 15 mmol/ Magnesium Sulfate 12 meq/Calcium Gluconate 15 meq/ Multivitamins 10 ml/Chromium/ Copper/Manganese/ Seleni/Zn 0.5 ml/ Insulin Human Regular 40 unit/ Total Parenteral Nutrition/Amino Acids/Dextrose/ Fat Emulsion Intravenous 1,400 ml @ 58.333 mls/ hr TPN CONT IV Last administered on 07/30/19at 21:21; Start 07/30/19 at 22:00; Stop 07/31/19 at 21:59; Status DC Sodium Chloride 1,000 ml @ 1,000 mls/hr Q1H PRN IV hypotension; Start 07/30/19 at 13:26; Stop 07/30/19 at 19:25; Status DC Albumin Human 200 ml @ 200 mls/hr 1X PRN PRN IV Hypotension Last administered on 07/30/19at 15:00; Start 07/30/19 at 13:30; Stop 07/30/19 at 19:29; Status DC Sodium Chloride (Normal Saline Flush) 10 ml 1X PRN PRN IV AP catheter pack; Start 07/30/19 at 13:30; Stop 07/31/19 at 13:29; Status DC Sodium Chloride (Normal Saline Flush) 10 ml 1X PRN PRN IV [employer]ER catheter pack; Start 07/30/19 at 13:30; Stop 07/31/19 at 13:29; Status DC Sodium Chloride 1,000 ml @ 400 mls/hr Q2H30M PRN IV PATENCY; Start 07/30/19 at 13:26; Stop 07/31/19 at 01:25; Status DC Info (PHARMACY MONITORING -- do not chart) 1 each PRN DAILY PRN MC SEE COMMENTS; Start 07/30/19 at 13:30; Stop 07/30/19 at 13:33; Status DC Info (PHARMACY MONITORING -- do not chart) 1 each PRN DAILY PRN MC SEE COMMENTS; Start 07/30/19 at 13:30; Stop 07/30/19 at 13:34; Status DC Sodium Chloride 90 meq/Potassium Phosphate 19 mmol/ Magnesium Sulfate 12 meq/Calcium Gluconate 15 meq/ Multivitamins 10 ml/Chromium/ Copper/Manganese/ Seleni/Zn 0.5 ml/ Insulin Human Regular 40 unit/ Total Parenteral Nutrition/Amino Acids/Dextrose/ Fat Emulsion Intravenous 1,400 ml @ 58.333 mls/ hr TPN CONT IV Last administered on 07/31/19at 21:54; Start 07/31/19 at 22:00; Stop 08/01/19 at 21:59; Status DC Sodium Chloride 1,000 ml @ 1,000 mls/hr Q1H PRN IV hypotension; Start 08/01/19 at 09:35; Stop 08/01/19 at 15:34; Status DC Albumin Human 200 ml @ 200 mls/hr 1X PRN PRN IV Hypotension; Start 08/01/19 at 09:45; Stop 08/01/19 at 15:44; Status DC Diphenhydramine HCl (Benadryl) 25 mg 1X PRN PRN IV ITCHING; Start 08/01/19 at 09:45; Stop 08/02/19 at 09:44; Status DC Diphenhydramine HCl (Benadryl) 25 mg 1X PRN PRN IV ITCHING; Start 08/01/19 at 09:45; Stop 08/02/19 at 09:44; Status DC Sodium Chloride 1,000 ml @ 400 mls/hr Q2H30M PRN IV PATENCY; Start 08/01/19 at 09:35; Stop 08/01/19 at 21:34; Status DC Info (PHARMACY MONITORING -- do not chart) 1 each PRN DAILY PRN MC SEE COMMENTS; Start 08/01/19 at 09:45; Status Cancel Sodium Chloride 100 meq/Potassium Phosphate 19 mmol/ Magnesium Sulfate 12 meq/Calcium Gluconate 15 meq/ Multivitamins 10 ml/Chromium/ Copper/Manganese/ Seleni/Zn 0.5 ml/ Insulin Human Regular 40 unit/ Potassium Chloride 20 meq/ Total Parenteral Nutrition/Amino Acids/Dextrose/ Fat Emulsion Intravenous 1,400 ml @ 58.333 mls/ hr TPN CONT IV Last administered on 08/01/19at 22:02; Start 08/01/19 at 22:00; Stop 08/02/19 at 21:59; Status DC Furosemide (Lasix) 40 mg 1X ONCE IVP Last administered on 08/01/19at 14:39; Start 08/01/19 at 14:30; Stop 08/01/19 at 14:31; Status DC Metronidazole 100 ml @ 100 mls/hr Q8HRS IV Last administered on 08/09/19at 0 6:04; Start 08/02/19 at 10:00; Stop 08/09/19 at 08:10; Status DC Sodium Chloride 1,000 ml @ 1,000 mls/hr Q1H PRN IV hypotension; Start 08/02/19 at 08:00; Stop 08/02/19 at 13:59; Status DC Albumin Human 200 ml @ 200 mls/hr 1X PRN PRN IV Hypotension; Start 08/02/19 at 08:00; Stop 08/02/19 at 13:59; Status DC Sodium Chloride 1,000 ml @ 400 mls/hr Q2H30M PRN IV PATENCY; Start 08/02/19 at 08:00; Stop 08/02/19 at 19:59; Status DC Info (PHARMACY MONITORING -- do not chart) 1 each PRN DAILY PRN MC SEE COMM ENTS; Start 08/02/19 at 11:30; Status UNV Info (PHARMACY MONITORING -- do not chart) 1 each PRN DAILY PRN MC SEE COMMENTS; Start 08/02/19 at 11:30; Stop 08/04/19 at 12:13; Status DC Sodium Chloride 100 meq/Potassium Phosphate 19 mmol/ Magnesium Sulfate 12 meq/Calcium Gluconate 15 meq/ Multivitamins 10 ml/Chromium/ Copper/Manganese/ Seleni/Zn 0.5 ml/ Insulin Human Regular 40 unit/ Potassium Chloride 20 meq/ Total Parenteral Nutrition/Amino Acids/Dextrose/ Fat Emulsion Intravenous 1,400 ml @ 58.333 mls/ hr TPN CONT IV Last administered on 08/02/19at 21:52; Start 08/02/19 at 22:00; Stop 08/03/19 at 21:59; Status DC Sodium Chloride (Normal Saline Flush) 10 ml QSHIFT PRN IV AFTER MEDS AND BLOOD DRAWS; Start 08/02/19 at 15:00; Stop 08/30/19 at 11:27; Status DC Sodium Chloride (Normal Saline Flush) 10 ml PRN Q5MIN PRN IV AFTER MEDS AND BLOOD DRAWS; Start 08/02/19 at 15:00 Sodium Chloride (Normal Saline Flush) 20 ml PRN Q5MIN PRN IV AFTER MEDS AND BLOOD DRAWS; Start 08/02/19 at 15:00 Sodium Chloride 100 meq/Potassium Phosphate 19 mmol/ Magnesium Sulfate 12 meq/Calcium Gluconate 15 meq/ Multivitamins 10 ml/Chromium/ Copper/Manganese/ Seleni/Zn 0.5 ml/ Insulin Human Regular 40 unit/ Potassium Chloride 20 meq/ Total Parenteral Nutrition/Amino Acids/Dextrose/ Fat Emulsion Intravenous 1,400 ml @ 58.333 mls/ hr TPN CONT IV Last administered on 08/03/19at 21:20; Start 08/03/19 at 22:00; Stop 08/04/19 at 21:59; Status DC Lidocaine HCl (Buffered Lidocaine 1%) 3 ml STK-MED ONCE .ROUTE ; Start 08/03/19 at 13:16; Stop 08/03/19 at 13:16; Status DC Lidocaine HCl (Buffered Lidocaine 1%) 6 ml 1X ONCE INJ Last administered on 08/03/19at 13:45; Start 08/03/19 at 13:30; Stop 08/03/19 at 13:31; Status DC Albumin Human 100 ml @ 100 mls/hr 1X ONCE IV Last administered on 08/03/19at 15:41; Start 08/03/19 at 15:00; Stop 08/03/19 at 15:59; Status DC Albumin Human 50 ml @ 50 mls/hr 1X ONCE IV Last administered on 08/03/19at 15:00; Start 08/03/19 at 15:00; Stop 08/03/19 at 15:59; Status DC Info (PHARMACY MONITORING -- do not chart) 1 each PRN DAILY PRN MC SEE COMMENTS; Start 08/04/19 at 11:30; Status Cancel Info (PHARMACY MONITORING -- do not chart) 1 each PRN DAILY PRN MC SEE COMMENTS; Start 08/04/19 at 11:30; Status UNV Sodium Chloride 100 meq/Potassium Phosphate 10 mmol/ Magnesium Sulfate 12 meq/Calcium Gluconate 15 meq/ Multivitamins 10 ml/Chromium/ Copper/Manganese/ Seleni/Zn 0.5 ml/ Insulin Human Regular 35 unit/ Potassium Chloride 20 meq/ Total Parenteral Nutrition/Amino Acids/Dextrose/ Fat Emulsion Intravenous 1,400 ml @ 58.333 mls/ hr TPN CONT IV Last administered on 08/04/19at 22:10; Start 08/04/19 at 22:00; Stop 08/05/19 at 21:59; Status DC Sodium Chloride 100 meq/Potassium Phosphate 5 mmol/ Magnesium Sulfate 12 meq/Calcium Gluconate 15 meq/ Multivitamins 10 ml/Chromium/ Copper/Manganese/ Seleni/Zn 0.5 ml/ Insulin Human Regular 35 unit/ Potassium Chloride 20 meq/ Total Parenteral Nutrition/Amino Acids/Dextrose/ Fat Emulsion Intravenous 1,400 ml @ 58.333 mls/ hr TPN CONT IV Last administered on 08/05/19at 22:59; Start 08/05/19 at 22:00; Stop 08/06/19 at 21:59; Status DC Sodium Chloride 1,000 ml @ 1,000 mls/hr Q1H PRN IV hypotension; Start 08/06/19 at 08:27; Stop 08/06/19 at 14:26; Status DC Albumin Human 200 ml @ 200 mls/hr 1X PRN PRN IV Hypotension Last administered on 08/06/19at 09:18; Start 08/06/19 at 08:30; Stop 08/06/19 at 14:29; Status DC Sodium Chloride 1,000 ml @ 400 mls/hr Q2H30M PRN IV PATENCY; Start 08/06/19 at 08:27; Stop 08/06/19 at 20:26; Status DC Info (PHARMACY MONITORING -- do not chart) 1 each PRN DAILY PRN MC SEE COMMENTS; Start 08/06/19 at 08:30; Status Cancel Info (PHARMACY MONITORING -- do not chart) 1 each PRN DAILY PRN MC SEE COMMENTS; Start 08/06/19 at 08:30; Stop 08/14/19 at 13:10; Status DC Sodium Chloride 100 meq/Potassium Chloride 40 meq/ Magnesium Sulfate 15 meq/Calcium Gluconate 15 meq/ Multivitamins 10 ml/Chromium/ Copper/Manganese/ Seleni/Zn 0.5 ml/ Insulin Human Regular 35 unit/ Total Parenteral Nutrition/Amino Acids/Dextrose/ Fat Emulsion Intravenous 1,400 ml @ 58.333 mls/ hr TPN CONT IV Last administered on 08/06/19at 22:00; Start 08/06/19 at 22:00; Stop 08/07/19 at 21:59; Status DC Potassium Chloride/Water 100 ml @ 100 mls/hr 1X ONCE IV Last administered on 08/06/19at 17:28; Start 08/06/19 at 14:45; Stop 08/06/19 at 15:44; Status DC Sodium Chloride 100 meq/Potassium Chloride 40 meq/ Magnesium Sulfate 15 meq/Calcium Gluconate 15 meq/ Multivitamins 10 ml/Chromium/ Copper/Manganese/ Seleni/Zn 0.5 ml/ Insulin Human Regular 35 unit/ Total Parenteral Nutrition/Amino Acids/Dextrose/ Fat Emulsion Intravenous 1,400 ml @ 58.333 mls/ hr TPN CONT IV Last administered on 08/07/19at 22:46; Start 08/07/19 at 22:00; Stop 08/08/19 at 21:59; Status DC Sodium Chloride 100 meq/Potassium Chloride 40 meq/ Magnesium Sulfate 20 meq/Zachariah cium Gluconate 15 meq/ Multivitamins 10 ml/Chromium/ Copper/Manganese/ Seleni/Zn 0.5 ml/ Insulin Human Regular 35 unit/ Total Parenteral Nutrition/Amino Acids/Dextrose/ Fat Emulsion Intravenous 1,400 ml @ 58.333 mls/ hr TPN CONT IV Last administered on 08/08/19at 22:31; Start 08/08/19 at 22:00; Stop 08/09/19 at 21:59; Status DC Fentanyl Citrate (Fentanyl 2ml Vial) 50 mcg PRN Q2HR PRN IVP PAIN Last administered on 08/15/19at 13:32; Start 08/08/19 at 21:00; Stop 08/16/19 at 12:53; Status DC Fentanyl Citrate (Fentanyl 2ml Vial) 25 mcg PRN Q2HR PRN IVP PAIN; Start 08/08/19 at 21:00; Stop 08/16/19 at 12:54; Status DC Enoxaparin Sodium (Lovenox 100mg Syringe) 100 mg Q12HR SQ ; Start 08/09/19 at 21:00; Status UNV Amino Acids/ Glycerin/ Electrolytes 1,000 ml @ 75 mls/hr [id number] IV ; Start 08/08/19 at 21:15; Status UNV Sodium Chloride 1,000 ml @ 1,000 mls/hr Q1H PRN IV hypotension; Start 08/09/19 at 07:56; Stop 08/09/19 at 13:55; Status DC Albumin Human 200 ml @ 200 mls/hr 1X PRN PRN IV Hypotension Last administered on 08/09/19at 08:40; Start 08/09/19 at 08:00; Stop 08/09/19 at 13:59; Status DC Sodium Chloride 1,000 ml @ 400 mls/hr Q2H30M PRN IV PATENCY; Start 08/09/19 at 07:56; Stop 08/09/19 at 19:55; Status DC Info (PHARMACY MONITORING -- do not chart) 1 each PRN DAILY PRN MC SEE COMMENTS; Start 08/09/19 at 08:00; Status UNV Info (PHARMACY MONITORING -- do not chart) 1 each PRN DAILY PRN MC SEE COMMENTS; Start 08/09/19 at 08:00; Status UNV Daptomycin 430 mg/ Sodium Chloride 50 ml @ 100 mls/hr Q24H IV Last administered on 08/09/19at 12:35; Start 08/09/19 at 09:00; Stop 08/09/19 at 12:49; Status DC Sodium Chloride 100 meq/Potassium Chloride 40 meq/ Magnesium Sulfate 20 meq/Calcium Gluconate 15 meq/ Multivitamins 10 ml/Chromium/ Copper/Manganese/ Seleni/Zn 0.5 ml/ Insulin Human Regular 35 unit/ Total Parenteral Nutrition/Amino Acids/Dextrose/ Fat Emulsion Intravenous 1,400 ml @ 58.333 mls/ hr TPN CONT IV Last administered on 08/09/19at 21:26; Start 08/09/19 at 22:00; Stop 08/10/19 at 21:59; Status DC Daptomycin 430 mg/ Sodium Chloride 50 ml @ 100 mls/hr Q48H IV ; Start 08/11/19 at 09:00; Stop 08/10/19 at 11:55; Status DC Sodium Chloride 100 meq/Potassium Chloride 40 meq/ Magnesium Sulfate 20 meq/Calcium Gluconate 15 meq/ Multivitamins 10 ml/Chromium/ Copper/Manganese/ Seleni/Zn 0.5 ml/ Insulin Human Regular 35 unit/ Total Parenteral Nutrition/Amino Acids/Dextrose/ Fat Emulsion Intravenous 1,400 ml @ 58.333 mls/ hr TPN CONT IV Last administered on 08/10/19at 22:27; Start 08/10/19 at 22:00; Stop 08/11/19 at 21:59; Status DC Daptomycin 430 mg/ Sodium Chloride 50 ml @ 100 mls/hr Q24H IV Last administered on 08/12/19at 15:07; Start 08/10/19 at 13:00; Stop 08/13/19 at 13:15; Status DC Sodium Chloride 100 meq/Potassium Chloride 40 meq/ Magnesium Sulfate 20 meq/Calcium Gluconate 10 meq/ Multivitamins 10 ml/Chromium/ Copper/Manganese/ Seleni/Zn 0.5 ml/ Insulin Human Regular 35 unit/ Total Parenteral Nutrition/Amino Acids/Dextrose/ Fat Emulsion Intravenous 1,400 ml @ 58.333 mls/ hr TPN CONT IV Last administered on 08/12/19at 00:06; Start 08/11/19 at 22:00; Stop 08/12/19 at 21:59; Status DC Alteplase, Recombinant (Cathflo For Central Catheter Clearance) 1 mg 1X ONCE INT CAT Last administered on 08/12/19at 11:44; Start 08/12/19 at 10:45; Stop 08/12/19 at 10:46; Status DC Ondansetron HCl (Zofran) 4 mg PRN Q6HRS PRN IV NAUSEA/VOMITING; Start 08/15/19 at 07:00; Stop 08/16/19 at 06:59; Status DC Fentanyl Citrate (Fentanyl 2ml Vial) 25 mcg PRN Q5MIN PRN IV MILD PAIN 1-3; Start 08/15/19 at 07:00; Stop 08/16/19 at 06:59; Status DC Fentanyl Citrate (Fentanyl 2ml Vial) 50 mcg PRN Q5MIN PRN IV MODERATE TO SEVERE PAIN Last administered on 08/15/19at 10:17; Start 08/15/19 at 07:00; Stop 08/16/19 at 06:59; Status DC Ringer's Solution 1,000 ml @ 30 mls/hr Q24H IV ; Start 08/15/19 at 07:00; Stop 08/15/19 at 18:59; Status DC Lidocaine HCl (Xylocaine-Mpf 1% 2ml Vial) 2 ml PRN 1X PRN ID PRIOR TO IV START; Start 08/15/19 at 07:00; Stop 08/16/19 at 06:59; Status DC Prochlorperazine Edisylate (Compazine) 5 mg PACU PRN PRN IV NAUSEA, MRX1; Start 08/15/19 at 07:00; Stop 08/16/19 at 06:59; Status DC Sodium Acetate 50 meq/Potassium Acetate 55 meq/ Magnesium Sulfate 20 meq/Calcium Gluconate 10 meq/ Multivitamins 10 ml/Chromium/ Copper/Manganese/ Seleni/Zn 0.5 ml/ Insulin Human Regular 35 unit/ Total Parenteral Nutrition/Amino Acids/Dextrose/ Fat Emulsion Intravenous 1,400 ml @ 58.333 mls/ hr TPN CONT IV ; Start 08/12/19 at 22:00; Stop 08/12/19 at 14:15; Status DC Sodium Acetate 50 meq/Potassium Acetate 55 meq/ Magnesium Sulfate 20 meq/Calcium Gluconate 10 meq/ Multivitamins 10 ml/Chromium/ Copper/Manganese/ Seleni/Zn 0.5 ml/ Insulin Human Regular 35 unit/ Total Parenteral Nutrition/Amino Acids/Dextrose/ Fat Emulsion Intravenous 1,800 ml @ 75 mls/hr TPN CONT IV Last administered on 08/12/19at 22:38; Start 08/12/19 at 22:00; Stop 08/13/19 at 21:59; Status DC Sodium Chloride 1,000 ml @ 1,000 mls/hr Q1H PRN IV hypotension; Start 08/12/19 at 15:31; Stop 08/12/19 at 21:30; Status DC Diphenhydramine HCl (Benadryl) 25 mg 1X PRN PRN IV ITCHING; Start 08/12/19 at 15:45; Stop 08/13/19 at 15:44; Status DC Diphenhydramine HCl (Benadryl) 25 mg 1X PRN PRN IV ITCHING; Start 08/12/19 at 15:45; Stop 08/13/19 at 15:44; Status DC Sodium Chloride 1,000 ml @ 400 mls/hr Q2H30M PRN IV PATENCY; Start 08/12/19 at 15:31; Stop 08/13/19 at 03:30; Status DC Info (PHARMACY MONITORING -- do not chart) 1 each PRN DAILY PRN MC SEE COMMENTS; Start 08/12/19 at 15:45; Stop 09/13/19 at 14:14; Status DC Sodium Acetate 50 meq/Potassium Acetate 55 meq/ Magnesium Sulfate 20 meq/Calcium Gluconate 10 meq/ Multivitamins 10 ml/Chromium/ Copper/Manganese/ Seleni/Zn 0.5 ml/ Insulin Human Regular 35 unit/ Total Parenteral Nutrition/Amino Acids/Dextrose/ Fat Emulsion Intravenous 1,800 ml @ 75 mls/hr TPN CONT IV Last administered on 08/13/19at 22:03; Start 08/13/19 at 22:00; Stop 08/14/19 at 21:59; Status DC Daptomycin 430 mg/ Sodium Chloride 50 ml @ 100 mls/hr Q24H IV Last administered on 08/18/19at 13:00; Start 08/13/19 at 13:00; Stop 08/18/19 at 20:58; Status DC Heparin Sodium (Porcine) 1000 unit/Sodium Chloride 1,001 ml @ 1,001 mls/hr 1X ONCE IRR ; Start 08/15/19 at 06:00; Stop 08/15/19 at 06:59; Status DC Potassium Acetate 55 meq/Magnesium Sulfate 20 meq/ Calcium Gluconate 10 meq/ Multivitamins 10 ml/Chromium/ Copper/Manganese/ Seleni/Zn 0.5 ml/ Insulin Human Regular 35 unit/ Total Parenteral Nutrition/Amino Acids/Dextrose/ Fat Emulsion Intravenous 1,920 ml @ 80 mls/hr TPN CONT IV Last administered on 08/14/19at 22:10; Start 08/14/19 at 22:00; Stop 08/15/19 at 21:59; Status DC Dexamethasone Sodium Phosphate (Decadron) 4 mg STK-MED ONCE .ROUTE ; Start 08/15/19 at 10:56; Stop 08/15/19 at 10:57; Status DC Ondansetron HCl (Zofran) 4 mg STK-MED ONCE .ROUTE ; Start 08/15/19 at 10:56; Stop 08/15/19 at 10:57; Status DC Rocuronium [place] (Zemuron) 50 mg STK-MED ONCE .ROUTE ; Start 08/15/19 at 10:56; Stop 08/15/19 at 10:57; Status DC Fentanyl Citrate (Fentanyl 2ml Vial) 100 mcg STK-MED ONCE .ROUTE ; Start 08/15/19 at 10:56; Stop 08/15/19 at 10:57; Status DC Bupivacaine HCl/ Epinephrine Bitart (Sensorcain-Epi 0.5%-1:[id number] Mpf) 30 ml STK-MED ONCE .ROUTE Last administered on 08/15/19at 12:01; Start 08/15/19 at 10:58; Stop 08/15/19 at 10:58; Status DC Cellulose (Surgicel Hemostat 2x14) 1 each STK-MED ONCE .ROUTE ; Start 08/15/19 at 10:58; Stop 08/15/19 at 10:59; Status DC Iohexol (Omnipaque 300 Mg/ml) 50 ml STK-MED ONCE .ROUTE ; Start 08/15/19 at 10:58; Stop 08/15/19 at 10:59; Status DC Cellulose (Surgicel Hemostat 4x8) 1 each STK-MED ONCE .ROUTE ; Start 08/15/19 at 10:58; Stop 08/15/19 at 10:59; Status DC Bisacodyl (Dulcolax Supp) 10 mg STK-MED ONCE .ROUTE ; Start 08/15/19 at 10:59; Stop 08/15/19 at 10:59; Status DC Heparin Sodium (Porcine) 1000 unit/Sodium Chloride 1,001 ml @ 1,001 mls/hr 1X ONCE IRR ; Start 08/15/19 at 12:00; Stop 08/15/19 at 12:59; Status DC Propofol 20 ml @ As Directed STK-MED ONCE IV ; Start 08/15/19 at 11:05; Stop 08/15/19 at 11:05; Status DC Sevoflurane (Ultane) 90 ml STK-MED ONCE IH ; Start 08/15/19 at 11:05; Stop 08/15/19 at 11:05; Status DC Sevoflurane (Ultane) 60 ml STK-MED ONCE IH ; Start 08/15/19 at 12:26; Stop 08/15/19 at 12:27; Status DC Propofol 20 ml @ As Directed STK-MED ONCE IV ; Start 08/15/19 at 12:26; Stop 08/15/19 at 12:27; Status DC Phenylephrine HCl (PHENYLEPHRINE in 0.9% NACL PF) 1 mg STK-MED ONCE IV ; Start 08/15/19 at 12:34; Stop 08/15/19 at 12:34; Status DC Heparin Sodium (Porcine) (Heparin Sodium) 5,000 unit Q12HR SQ Last administered on 08/24/19at 20:57; Start 08/15/19 at 21:00; Stop 08/25/19 at 09:59; Status DC Sodium Chloride (Normal Saline Flush) 3 ml QSHIFT PRN IV AFTER MEDS AND BLOOD DRAWS; Start 08/15/19 at 13:45; Status Cancel Naloxone HCl (Narcan) 0.4 mg PRN Q2MIN PRN IV SEE INSTRUCTIONS Last administered on 09/24/19at 15:15; Start 08/15/19 at 13:45; Stop 10/19/19 at 16:00; Status DC Sodium Chloride 1,000 ml @ 25 mls/hr Q24H IV Last administered on 09/13/19at 13:37; Start 08/15/19 at 13:37; Stop 09/16/19 at 13:09; Status DC Naloxone HCl (Narcan) 0.4 mg PRN Q2MIN PRN IV SEE INSTRUCTIONS; Start 08/15/19 at 14:30; Status UNV Sodium Chloride 1,000 ml @ 25 mls/hr Q24H IV ; Start 08/15/19 at 14:30; Status UNV Hydromorphone HCl 30 ml @ 0 mls/hr CONT PRN PRN IV PER PROTOCOL Last administered on 08/20/19at 16:08; Start 08/15/19 at 14:30; Stop 08/22/19 at 08:55; Status DC Potassium Acetate 55 meq/Magnesium Sulfate 20 meq/ Calcium Gluconate 10 meq/ Multivitamins 10 ml/Chromium/ Copper/Manganese/ Seleni/Zn 0.5 ml/ Insulin Human Regular 35 unit/ Total Parenteral Nutrition/Amino Acids/Dextrose/ Fat Emulsion Intravenous 1,920 ml @ 80 mls/hr TPN CONT IV Last administered on 08/15/19at 22:01; Start 08/15/19 at 22:00; Stop 08/16/19 at 21:59; Status DC Bumetanide (Bumex) 2 mg [id number] IV Last administered on 08/19/19at 13:50; Start 08/16/19 at 14:00; Stop 08/20/19 at 14:10; Status DC Meropenem 1 gm/ Sodium Chloride 100 ml @ 200 mls/hr Q8HRS IV Last administered on 09/09/19at 05:53; Start 08/16/19 at 14:00; Stop 09/09/19 at 09:31; Status DC Potassium Acetate 55 meq/Magnesium Sulfate 20 meq/ Calcium Gluconate 10 meq/ Multivitamins 10 ml/Chromium/ Copper/Manganese/ Seleni/Zn 0.5 ml/ Insulin Human Regular 35 unit/ Total Parenteral Nutrition/Amino Acids/Dextrose/ Fat Emulsion Intravenous 1,920 ml @ 80 mls/hr TPN CONT IV Last administered on 08/16/19at 22:02; Start 08/16/19 at 22:00; Stop 08/17/19 at 21:59; Status DC Hydromorphone HCl (Dilaudid Standard QUALITY TECHNICIAN) 12 mg STK-MED ONCE IV ; Start 08/15/19 at 14:35; Stop 08/16/19 at 13:53; Status DC Artificial Tears (Artificial Tears) 1 drop PRN Q15MIN PRN OU DRY EYE Last administered on 10/11/19at 21:17; Start 08/17/19 at 05:30 Hydromorphone HCl (Dilaudid Standard QUALITY TECHNICIAN) 12 mg STK-MED ONCE IV ; Start 08/16/19 at 12:05; Stop 08/17/19 at 09:15; Status DC Potassium Acetate 65 meq/Magnesium Sulfate 20 meq/ Calcium Gluconate 10 meq/ Mu ltivitamins 10 ml/Chromium/ Copper/Manganese/ Seleni/Zn 0.5 ml/ Insulin Human Regular 30 unit/ Total Parenteral Nutrition/Amino Acids/Dextrose/ Fat Emulsion Intravenous 1,920 ml @ 80 mls/hr TPN CONT IV Last administered on 08/17/19at 22:22; Start 08/17/19 at 22:00; Stop 08/18/19 at 21:59; Status DC Cyclobenzaprine HCl (Flexeril) 10 mg PRN Q6HRS PRN PO MUSCLE SPASMS Last administered on 10/28/19at 19:12; Start 08/18/19 at 10:45 Potassium Acetate 55 meq/Magnesium Sulfate 20 meq/ Calcium Gluconate 10 meq/ M ultivitamins 10 ml/Chromium/ Copper/Manganese/ Seleni/Zn 0.5 ml/ Insulin Human Regular 30 unit/ Total Parenteral Nutrition/Amino Acids/Dextrose/ Fat Emulsion Intravenous 1,920 ml @ 80 mls/hr TPN CONT IV Last administered on 08/19/19at 01:00; Start 08/18/19 at 22:00; Stop 08/19/19 at 21:59; Status DC Magnesium Sulfate 50 ml @ 25 mls/hr 1X ONCE IV Last administered on 08/18/19at 17:18; Start 08/18/19 at 12:45; Stop 08/18/19 at 14:44; Status DC Potassium Chloride/Water 100 ml @ 100 mls/hr 1X ONCE IV Last administered on 08/19/19at 11:27; Start 08/19/19 at 12:00; Stop 08/19/19 at 12:59; Status DC Hydromorphone HCl (Dilaudid Standard QUALITY TECHNICIAN) 12 mg STK-MED ONCE IV ; Start 08/17/19 at 10:50; Stop 08/19/19 at 11:02; Status DC Hydromorphone HCl (Dilaudid Standard QUALITY TECHNICIAN) 12 mg STK-MED ONCE IV ; Start 08/18/19 at 13:47; Stop 08/19/19 at 11:03; Status DC Potassium Acetate 30 meq/Magnesium Sulfate 20 meq/ Calcium Gluconate 10 meq/ Multivitamins 10 ml/Chromium/ Copper/Manganese/ Seleni/Zn 0.5 ml/ Insulin Human Regular 30 unit/ Potassium Chloride 30 meq/ Total Parenteral Nutrition/Amino Acids/Dextrose/ Fat Emulsion Intravenous 1,920 ml @ 80 mls/hr TPN CONT IV Last administered on 08/19/19at 22:34; Start 08/19/19 at 22:00; Stop 08/20/19 at 21:59; Status DC Potassium Chloride/Water 100 ml @ 100 mls/hr Q1H IV Last administered on 08/20/19at 13:05; Start 08/20/19 at 07:00; Stop 08/20/19 at 10:59; Status DC Magnesium Sulfate 50 ml @ 25 mls/hr 1X ONCE IV Last administered on 08/20/19at 10:34; Start 08/20/19 at 10:30; Stop 08/20/19 at 12:29; Status DC Potassium Chloride 75 meq/ Magnesium Sulfate 20 meq/Calcium Gluconate 10 meq/ Multivitamins 10 ml/Chromium/ Copper/Manganese/ Seleni/Zn 0.5 ml/ Insulin Human Regular 30 unit/ Total Parenteral Nutrition/Amino Acids/Dextrose/ Fat Emulsion Intravenous 1,920 ml @ 80 mls/hr TPN CONT IV Last administered on 08/20/19at 21:51; Start 08/20/19 at 22:00; Stop 08/21/19 at 22:00; Status DC Potassium Chloride 75 meq/ Magnesium Sulfate 20 meq/Calcium Gluconate 10 meq/ Multivitamins 10 ml/Chromium/ Copper/Manganese/ Seleni/Zn 0.5 ml/ Insulin Human Regular 25 unit/ Total Parenteral Nutrition/Amino Acids/Dextrose/ Fat Emulsion Intravenous 1,920 ml @ 80 mls/hr TPN CONT IV Last administered on 08/21/19at 22:04; Start 08/21/19 at 22:00; Stop 08/22/19 at 21:59; Status DC Hydromorphone HCl (Dilaudid) 0.4 mg PRN Q4HRS PRN IVP PAIN Last administered on 08/22/19at 10:57; Start 08/22/19 at 09:00; Stop 08/22/19 at 18:59; Status DC Micafungin Sodium 100 mg/Dextrose 100 ml @ 100 mls/hr Q24H IV Last administered on 09/13/19at 12:17; Start 08/22/19 at 11:00; Stop 09/14/19 at 09:59; Status DC Daptomycin 485 mg/ Sodium Chloride 50 ml @ 100 mls/hr Q24H IV Last administered on 08/29/19at 13:10; Start 08/22/19 at 11:00; Stop 08/30/19 at 07:44; Status DC Potassium Chloride 75 meq/ Magnesium Sulfate 15 meq/Calcium Gluconate 8 meq/ Multivitamins 10 ml/Chromium/ Copper/Manganese/ Seleni/Zn 0.5 ml/ Insulin Human Regular 25 unit/ Total Parenteral Nutrition/Amino Acids/Dextrose/ Fat Emulsion Intravenous 1,920 ml @ 80 mls/hr TPN CONT IV Last administered on 08/22/19at 23:08; Start 08/22/19 at 22:00; Stop 08/23/19 at 21:59; Status DC Haloperidol Lactate (Haldol Inj) 3 mg 1X ONCE IVP Last administered on 08/22/19at 14:37; Start 08/22/19 at 14:30; Stop 08/22/19 at 14:31; Status DC Hydromorphone HCl (Dilaudid) 1 mg PRN Q4HRS PRN IVP PAIN Last administered on 09/05/19at 06:25; Start 08/22/19 at 19:00; Stop 09/05/19 at 17:10; Status DC Potassium Chloride 75 meq/ Magnesium Sulfate 15 meq/Calcium Gluconate 8 meq/ Multivitamins 10 ml/Chromium/ Copper/Manganese/ Seleni/Zn 0.5 ml/ Insulin Human Regular 20 unit/ Total Parenteral Nutrition/Amino Acids/Dextrose/ Fat Emulsion Intravenous 1,920 ml @ 80 mls/hr TPN CONT IV Last administered on 08/23/19at 22:10; Start 08/23/19 at 22:00; Stop 08/24/19 at 21:59; Status DC Lidocaine HCl (Buffered Lidocaine 1%) 3 ml STK-MED ONCE .ROUTE ; Start 08/24/19 at 11:31; Stop 08/24/19 at 11:31; Status DC Lidocaine HCl (Buffered Lidocaine 1%) 3 ml STK-MED ONCE .ROUTE ; Start 08/24/19 at 12:28; Stop 08/24/19 at 12:29; Status DC Lidocaine HCl (Buffered Lidocaine 1%) 6 ml 1X ONCE INJ Last administered on 08/24/19at 12:53; Start 08/24/19 at 12:45; Stop 08/24/19 at 12:46; Status DC Potassium Chloride 75 meq/ Magnesium Sulfate 15 meq/Calcium Gluconate 8 meq/ Multivitamins 10 ml/Chromium/ Copper/Manganese/ Seleni/Zn 0.5 ml/ Insulin Human Regular 20 unit/ Total Parenteral Nutrition/Amino Acids/Dextrose/ Fat Emulsion Intravenous 1,920 ml @ 80 mls/hr TPN CONT IV Last administered on 08/24/19at 22:00; Start 08/24/19 at 22:00; Stop 08/25/19 at 21:59; Status DC Potassium Chloride 75 meq/ Magnesium Sulfate 15 meq/Calcium Gluconate 8 meq/ Multivitamins 10 ml/Chromium/ Copper/Manganese/ Seleni/Zn 0.5 ml/ Insulin Human Regular 15 unit/ Total Parenteral Nutrition/Amino Acids/Dextrose/ Fat Emulsion Intravenous 1,920 ml @ 80 mls/hr TPN CONT IV Last administered on 08/25/19at 22:28; Start 08/25/19 at 22:00; Stop 08/26/19 at 21:59; Status DC Vecuronium [place] (Norcuron Bolus) 6 mg PRN Q6HRS PRN IV VENT ASYNCHRONY; Start 08/25/19 at 19:15; Stop 08/25/19 at 19:35; Status DC Bumetanide (Bumex) 2 mg 1X ONCE IV Last administered on 08/25/19at 22:09; Start 08/25/19 at 19:45; Stop 08/25/19 at 19:46; Status DC Lidocaine HCl (Buffered Lidocaine 1%) 3 ml STK-MED ONCE .ROUTE ; Start 08/26/19 at 07:59; Stop 08/26/19 at 07:59; Status DC Midazolam HCl (Versed) 5 mg STK-MED ONCE .ROUTE ; Start 08/26/19 at 08:36; Stop 08/26/19 at 08:36; Status DC Fentanyl Citrate (Fentanyl 5ml Vial) 250 mcg STK-MED ONCE .ROUTE ; Start 08/26/19 at 08:36; Stop 08/26/19 at 08:37; Status DC Lidocaine HCl (Buffered Lidocaine 1%) 3 ml 1X ONCE IJ Last administered on 08/26/19at 09:30; Start 08/26/19 at 09:15; Stop 08/26/19 at 09:16; Status DC Midazolam HCl (Versed) 5 mg 1X ONCE IV Last administered on 08/26/19at 09:30; Start 08/26/19 at 09:15; Stop 08/26/19 at 09:16; Status DC Fentanyl Citrate (Fentanyl 5ml Vial) 250 mcg 1X ONCE IV Last administered on 08/26/19at 09:30; Start 08/26/19 at 09:15; Stop 08/26/19 at 09:16; Status DC Bumetanide (Bumex) 2 mg DAILY IV Last administered on 09/05/19at 08:07; Start 08/26/19 at 10:00; Stop 09/05/19 at 17:15; Status DC Potassium Chloride 75 meq/ Magnesium Sulfate 15 meq/ Multivitamins 10 ml/C hromium/ Copper/Manganese/ Seleni/Zn 0.5 ml/ Insulin Human Regular 15 unit/ Total Parenteral Nutrition/Amino Acids/Dextrose/ Fat Emulsion Intravenous 1,920 ml @ 80 mls/hr TPN CONT IV Last administered on 08/26/19at 21:59; Start 08/26/19 at 22:00; Stop 08/27/19 at 21:59; Status DC Metoclopramide HCl (Reglan Vial) 10 mg PRN Q3HRS PRN IVP NAUSEA/VOMITING-3rd choice Last administered on 09/01/19at 04:25; Start 08/27/19 at 16:45 Potassium Chloride 75 meq/ Magnesium Sulfate 15 meq/ Multivitamins 10 ml/Chromium/ Copper/Manganese/ Seleni/Zn 0.5 ml/ Insulin Human Regular 15 unit/ Total Parenteral Nutrition/Amino Acids/Dextrose/ Fat Emulsion Intravenous 1,920 ml @ 80 mls/hr TPN CONT IV Last administered on 08/27/19at 22:41; Start 08/27/19 at 22:00; Stop 08/28/19 at 21:59; Status DC Magnesium Sulfate 50 ml @ 25 mls/hr 1X ONCE IV Last administered on 08/28/19at 10:44; Start 08/28/19 at 09:00; Stop 08/28/19 at 10:59; Status DC Potassium Chloride/Water 100 ml @ 100 mls/hr 1X ONCE IV Last administered on 08/28/19at 09:37; Start 08/28/19 at 09:00; Stop 08/28/19 at 09:59; Status DC Duloxetine HCl (Cymbalta) 30 mg DAILY PO Last administered on 08/29/19at 09:48; Start 08/28/19 at 14:00; Stop 08/31/19 at 10:25; Status DC Potassium Chloride 80 meq/ Magnesium Sulfate 20 meq/ Multivitamins 10 ml/Chromium/ Copper/Manganese/ Seleni/Zn 0.5 ml/ Insulin Human Regular 15 unit/ Total Parenteral Nutrition/Amino Acids/Dextrose/ Fat Emulsion Intravenous 1,920 ml @ 80 mls/hr TPN CONT IV Last administered on 08/28/19at 21:42; Start 08/27 at 22:00; Stop 08/29/19 at 21:59; Status DC Potassium Chloride 80 meq/ Magnesium Sulfate 20 meq/ Multivitamins 10 ml/Chromi um/ Copper/Manganese/ Seleni/Zn 0.5 ml/ Insulin Human Regular 15 unit/ Total Parenteral Nutrition/Amino Acids/Dextrose/ Fat Emulsion Intravenous 1,920 ml @ 80 mls/hr TPN CONT IV Last administered on 08/29/19at 22:20; Start 08/29/19 at 22:00; Stop 08/30/19 at 21:59; Status DC Lidocaine HCl (Buffered Lidocaine 1%) 3 ml STK-MED ONCE .ROUTE ; Start 08/30/19 at 09:54; Stop 08/30/19 at 09:55; Status DC Hydromorphone HCl (Dilaudid Standard QUALITY TECHNICIAN) 12 mg STK-MED ONCE IV ; Start 08/19/19 at 15:50; Stop 08/30/19 at 11:24; Status DC Potassium Chloride 80 meq/ Magnesium Sulfate 20 meq/ Multivitamins 10 ml/Chromium/ Copper/Manganese/ Seleni/Zn 0.5 ml/ Insulin Human Regular 15 unit/ Total Parenteral Nutrition/Amino Acids/Dextrose/ Fat Emulsion Intravenous 1,920 ml @ 80 mls/hr TPN CONT IV Last administered on 08/30/19at 21:40; Start 08/30/19 at 22:00; Stop 08/31/19 at 21:59; Status DC Lidocaine HCl (Buffered Lidocaine 1%) 6 ml 1X ONCE INJ Last administered on 08/30/19at 14:15; Start 08/30/19 at 14:15; Stop 08/30/19 at 14:16; Status DC Potassium Chloride 80 meq/ Magnesium Sulfate 20 meq/ Multivitamins 10 ml/Chromium/ Copper/Manganese/ Seleni/Zn 1 ml/ Insulin Human Regular 15 unit/ Total Parenteral Nutrition/Amino Acids/Dextrose/ Fat Emulsion Intravenous 1,920 ml @ 80 mls/hr TPN CONT IV Last administered on 08/31/19at 22:04; Start 08/31/19 at 22:00; Stop 09/01/19 at 21:59; Status DC Potassium Chloride/Water 100 ml @ 100 mls/hr 1X ONCE IV Last administered on 09/01/19at 11:34; Start 09/01/19 at 11:00; Stop 09/01/19 at 11:59; Status DC Potassium Chloride 90 meq/ Magnesium Sulfate 20 meq/ Multivitamins 10 ml/Chromium/ Copper/Manganese/ Seleni/Zn 1 ml/ Insulin Human Regular 15 unit/ Total Parenteral Nutrition/Amino Acids/Dextrose/ Fat Emulsion Intravenous 1,920 ml @ 80 mls/hr TPN CONT IV Last administered on 09/01/19at 22:57; Start 09/01/19 at 22:00; Stop 09/02/19 at 21:59; Status DC Potassium Chloride 90 meq/ Magnesium Sulfate 20 meq/ Multivitamins 10 ml/Chromium/ Copper/Manganese/ Seleni/Zn 1 ml/ Insulin Human Regular 15 unit/ Total Parenteral Nutrition/Amino Acids/Dextrose/ Fat Emulsion Intravenous 1,920 ml @ 80 mls/hr TPN CONT IV Last administered on 09/02/19at 22:48; Start 09/02/19 at 22:00; Stop 09/03/19 at 21:59; Status DC Potassium Chloride 90 meq/ Magnesium Sulfate 20 meq/ Multivitamins 10 ml/Chromium/ Copper/Manganese/ Seleni/Zn 1 ml/ Insulin Human Regular 15 unit/ Total Parenteral Nutrition/Amino Acids/Dextrose/ Fat Emulsion Intravenous 1,890 ml @ 78.75 mls/ hr TPN CONT IV Last administered on 09/03/19at 22:15; Start 09/03/19 at 22:00; Stop 09/04/19 at 21:59; Status DC Linezolid/Dextrose 300 ml @ 300 mls/hr Q12HR IV Last administered on 09/06/19at 21:08; Start 09/04/19 at 09:00; Stop 09/07/19 at 08:11; Status DC Daptomycin 450 mg/ Sodium Chloride 50 ml @ 100 mls/hr Q24H IV Last administered on 09/07/19at 09:25; Start 09/04/19 at 09:00; Stop 09/08/19 at 08:30; Status DC Potassium Chloride 90 meq/ Magnesium Sulfate 20 meq/ Multivitamins 10 ml/Chromium/ Copper/Manganese/ Seleni/Zn 1 ml/ Insulin Human Regular 15 unit/ Total Parenteral Nutrition/Amino Acids/Dextrose/ Fat Emulsion Intravenous 1,890 ml @ 78.75 mls/ hr TPN CONT IV Last administered on 09/04/19at 21:34; Start 09/04/19 at 22:00; Stop 09/05/19 at 21:59; Status DC Lorazepam (Ativan Inj) 2 mg STK-MED ONCE .ROUTE ; Start 09/04/19 at 14:58; Stop 09/04/19 at 14:58; Status DC Metoprolol Tartrate (Lopressor Vial) 5 mg 1X ONCE IVP Last administered on 09/04/19at 15:31; Start 09/04/19 at 15:15; Stop 09/04/19 at 15:16; Status DC Lorazepam (Ativan Inj) 2 mg 1X ONCE IVP Last administered on 09/04/19at 15:30; Start 09/04/19 at 15:15; Stop 09/04/19 at 15:16; Status DC Enoxaparin Sodium (Lovenox 40mg Syringe) 40 mg Q24H SQ Last administered on 09/23/19at 17:44; Start 09/04/19 at 17:00; Stop 09/25/19 at 06:50; Status DC Lorazepam (Ativan Inj) 1 mg PRN Q4HRS PRN IVP ANXIETY / AGITATION MILD-MOD Last administered on 09/18/19at 15:55; Start 09/04/19 at 19:15; Stop 09/20/19 at 11:45; Status DC Lorazepam (Ativan Inj) 2 mg PRN Q4HRS PRN IVP ANXIETY / AGITATION SEVERE Last administered on 09/19/19at 07:55; Start 09/04/19 at 19:15; Stop 09/20/19 at 11:45; Status DC Fentanyl Citrate (Fentanyl 2ml Vial) 50 mcg PRN Q4HRS PRN IVP SEVERE PAIN Last administered on 10/01/19at 05:15; Start 09/05/19 at 13:15; Stop 10/02/19 at 0 9:29; Status DC Fentanyl Citrate (Fentanyl 2ml Vial) 25 mcg PRN Q4HRS PRN IVP MODERATE PAIN Last administered on 10/01/19at 00:27; Start 09/05/19 at 13:15; Stop 10/02/19 at 09:30; Status DC Potassium Chloride 90 meq/ Magnesium Sulfate 20 meq/ Multivitamins 10 ml/Chromium/ Copper/Manganese/ Seleni/Zn 1 ml/ Insulin Human Regular 15 unit/ Total Parenteral Nutrition/Amino Acids/Dextrose/ Fat Emulsion Intravenous 1,890 ml @ 78.75 mls/ hr TPN CONT IV Last administered on 09/05/19at 22:18; Start 09/05/19 at 22:00; Stop 09/06/19 at 21:59; Status DC Furosemide (Lasix) 40 mg 1X ONCE IVP Last administered on 09/05/19at 21:51; Start 09/05/19 at 21:45; Stop 09/05/19 at 21:48; Status DC Albumin Human 100 ml @ 100 mls/hr 1X PRN PRN IV SEE COMMENTS; Start 09/06/19 at 01:30 Furosemide (Lasix) 40 mg [id number] IVP Last administered on 09/21/19at 08:04; Start 09/06/19 at 14:00; Stop 09/21/19 at 13:07; Status DC Potassium Chloride 90 meq/ Magnesium Sulfate 20 meq/ Multivitamins 10 ml/Chromium/ Copper/Manganese/ Seleni/Zn 1 ml/ Insulin Human Regular 15 unit/ Total Parenteral Nutrition/Amino Acids/Dextrose/ Fat Emulsion Intravenous 1,800 ml @ 75 mls/hr TPN CONT IV Last administered on 09/06/19at 22:31; Start 09/06/19 at 22:00; Stop 09/07/19 at 21:59; Status DC Potassium Chloride 90 meq/ Magnesium Sulfate 20 meq/ Multivitamins 10 ml/Chromium/ Copper/Manganese/ Seleni/Zn 1 ml/ Insulin Human Regular 15 unit/ Total Parenteral Nutrition/Amino Acids/Dextrose/ Fat Emulsion Intravenous 1,800 ml @ 75 mls/hr TPN CONT IV Last administered on 09/07/19at 22:28; Start 09/07/19 at 22:00; Stop 09/08/19 at 21:59; Status DC Potassium Chloride 110 meq/ Magnesium Sulfate 20 meq/ Multivitamins 10 ml/Chromium/ Copper/Manganese/ Seleni/Zn 1 ml/ Insulin Human Regular 15 unit/ Total Parenteral Nutrition/Amino Acids/Dextrose/ Fat Emulsion Intravenous 1,800 ml @ 75 mls/hr TPN CONT IV Last administered on 09/08/19at 22:01; Start 09/08/19 at 22:00; Stop 09/09/19 at 21:59; Status DC Saliva Substitute (Biotene Moisturizing Mouth) 2 spray PRN Q15MIN PRN PO DRY MOUTH; Start 09/08/19 at 11:00 Potassium Chloride 110 meq/ Magnesium Sulfate 20 meq/ Multivitamins 10 ml/Chromium/ Copper/Manganese/ Seleni/Zn 1 ml/ Insulin Human Regular 15 unit/ Total Parenteral Nutrition/Amino Acids/Dextrose/ Fat Emulsion Intravenous 1,800 ml @ 75 mls/hr TPN CONT IV Last administered on 09/09/19at 22:21; Start 09/09/19 at 22:00; Stop 09/10/19 at 21:59; Status DC Potassium Chloride 110 meq/ Magnesium Sulfate 20 meq/ Multivitamins 10 ml/Chromium/ Copper/Manganese/ Seleni/Zn 1 ml/ Insulin Human Regular 15 unit/ Total Parenteral Nutrition/Amino Acids/Dextrose/ Fat Emulsion Intravenous 1,800 ml @ 75 mls/hr TPN CONT IV Last administered on 09/10/19at 22:04; Start 09/10/19 at 22:00; Stop 09/11/19 at 21:59; Status DC Potassium Chloride 110 meq/ Magnesium Sulfate 20 meq/ Multivitamins 10 ml/Chromium/ Copper/Manganese/ Seleni/Zn 1 ml/ Insulin Human Regular 15 unit/ Total Parenteral Nutrition/Amino Acids/Dextrose/ Fat Emulsion Intravenous 1,800 ml @ 75 mls/hr TPN CONT IV Last administered on 09/11/19at 22:48; Start 09/11/19 at 22:00; Stop 09/12/19 at 21:59; Status DC Potassium Chloride 70 meq/ Magnesium Sulfate 20 meq/ Multivitamins 10 ml/Chromium/ Copper/Manganese/ Seleni/Zn 1 ml/ Insulin Human Regular 15 unit/ Total Parenteral Nutrition/Amino Acids/Dextrose/ Fat Emulsion Intravenous 1,800 ml @ 75 mls/hr TPN CONT IV Last administered on 09/12/19at 21:39; Start 09/12/19 at 22:00; Stop 09/13/19 at 21:59; Status DC Meropenem 500 mg/ Sodium Chloride 50 ml @ 100 mls/hr Q6HRS IV Last a dministered on 09/14/19at 06:02; Start 09/12/19 at 18:00; Stop 09/14/19 at 09:59; Status DC Barium Sulfate (Varibar Thin Liquid Apple) 148 gm 1X ONCE PO ; Start 09/13/19 at 11:45; Stop 09/13/19 at 11:49; Status DC Potassium Chloride 70 meq/ Magnesium Sulfate 20 meq/ Multivitamins 10 ml/Chromium/ Copper/Manganese/ Seleni/Zn 1 ml/ Insulin Human Regular 15 unit/ Total Parenteral Nutrition/Amino Acids/Dextrose/ Fat Emulsion Intravenous 1,800 ml @ 75 mls/hr TPN CONT IV Last administered on 09/13/19at 22:27; Start 09/13/19 at 22:00; Stop 09/14/19 at 21:59; Status DC Piperacillin Sod/ Tazobactam Sod 3.375 gm/Sodium Chloride 50 ml @ 100 mls/hr Q6HRS IV Last administered on 09/22/19at 06:10; Start 09/14/19 at 12:00; Stop 09/22/19 at 07:26; Status DC Potassium Chloride 70 meq/ Magnesium Sulfate 20 meq/ Multivitamins 10 ml/Chromium/ Copper/Manganese/ Seleni/Zn 1 ml/ Insulin Human Regular 15 unit/ Total Parenteral Nutrition/Amino Acids/Dextrose/ Fat Emulsion Intravenous 1,800 ml @ 75 mls/hr TPN CONT IV Last administered on 09/14/19at 22:03; Start 09/14/19 at 22:00; Stop 09/15/19 at 21:59; Status DC Potassium Chloride 70 meq/ Magnesium Sulfate 20 meq/ Multivitamins 10 ml/Chromium/ Copper/Manganese/ Seleni/Zn 1 ml/ Insulin Human Regular 15 unit/ Total Parenteral Nutrition/Amino Acids/Dextrose/ Fat Emulsion Intravenous 1,800 ml @ 75 mls/hr TPN CONT IV Last administered on 09/15/19at 22:33; Start 09/15/19 at 22:00; Stop 09/16/19 at 21:59; Status DC Potassium Chloride 70 meq/ Magnesium Sulfate 20 meq/ Multivitamins 10 ml/Chromium/ Copper/Manganese/ Seleni/Zn 1 ml/ Insulin Human Regular 15 unit/ Total Parenteral Nutrition/Amino Acids/Dextrose/ Fat Emulsion Intravenous 1,800 ml @ 75 mls/hr TPN CONT IV Last administered on 09/16/19at 23:13; Start 09/16/19 at 22:00; Stop 09/17/19 at 21:59; Status DC Potassium Chloride 80 meq/ Magnesium Sulfate 20 meq/ Multivitamins 10 ml/Chromium/ Copper/Manganese/ Seleni/Zn 1 ml/ Insulin Human Regular 15 unit/ Total Parenteral Nutrition/Amino Acids/Dextrose/ Fat Emulsion Intravenous 1,800 ml @ 75 mls/hr TPN CONT IV Last administered on 09/17/19at 22:30; Start 09/17/19 at 22:00; Stop 09/18/19 at 21:59; Status DC Potassium Chloride 80 meq/ Magnesium Sulfate 20 meq/ Multivitamins 10 ml/Chromium/ Copper/Manganese/ Seleni/Zn 1 ml/ Insulin Human Regular 15 unit/ Total Parenteral Nutrition/Amino Acids/Dextrose/ Fat Emulsion Intravenous 1,800 ml @ 75 mls/hr TPN CONT IV Last administered on 09/18/19at 21:54; Start 09/18/19 at 22:00; Stop 09/19/19 at 21:59; Status DC Potassium Chloride/Water 100 ml @ 100 mls/hr 1X ONCE IV Last administered on 09/19/19at 10:15; Start 09/19/19 at 10:00; Stop 09/19/19 at 10:59; Status DC Potassium Chloride 90 meq/ Magnesium Sulfate 20 meq/ Multivitamins 10 ml/Chromium/ Copper/Manganese/ Seleni/Zn 1 ml/ Insulin Human Regular 20 unit/ Total Parenteral Nutrition/Amino Acids/Dextrose/ Fat Emulsion Intravenous 1,800 ml @ 75 mls/hr TPN CONT IV Last administered on 09/19/19at 22:28; Start 09/19/19 at 22:00; Stop 09/20/19 at 21:59; Status DC Potassium Chloride 90 meq/ Magnesium Sulfate 20 meq/ Multivitamins 10 ml/Chromium/ Copper/Manganese/ Seleni/Zn 1 ml/ Insulin Human Regular 20 unit/ Total Parenteral Nutrition/Amino Acids/Dextrose/ Fat Emulsion Intravenous 1,800 ml @ 75 mls/hr TPN CONT IV Last administered on 09/20/19at 22:08; Start 09/20/19 at 22:00; Stop 09/21/19 at 21:59; Status DC Lorazepam (Ativan Inj) 0.25 mg PRN Q4HRS PRN IVP ANXIETY / AGITATION Last administered on 10/30/19at 00:27; Start 09/21/19 at 07:30 Potassium Chloride 90 meq/ Magnesium Sulfate 20 meq/ Multivitamins 10 ml/Chromium/ Copper/Manganese/ Seleni/Zn 1 ml/ Insulin Human Regular 20 unit/ Total Parenteral Nutrition/Amino Acids/Dextrose/ Fat Emulsion Intravenous 1,800 ml @ 75 mls/hr TPN CONT IV Last administered on 09/21/19at 23:13; Start 09/21/19 at 22:00; Stop 09/22/19 at 21:59; Status DC Furosemide (Lasix) 40 mg DAILY IVP Last administered on 09/23/19at 11:14; Start 09/21/19 at 13:30; Stop 09/25/19 at 09:12; Status DC Fluoxetine HCl (PROzac) 20 mg QHS PEG Last administered on 10/30/19at 21:23; Start 09/22/19 at 21:00 Fentanyl (Duragesic 50mcg/ Hr Patch) 1 patch Q72H TD Last administered on 09/22/19at 21:22; Start 09/22/19 at 21:00; Stop 10/01/19 at 12:00; Status DC Potassium Chloride 40 meq/ Potassium Acetate 60 meq/Magnesium Sulfate 10 meq/ Multivitamins 10 ml/Chromium/ Copper/Manganese/ Seleni/Zn 1 ml/ Insulin Human Regular 20 unit/ Total Parenteral Nutrition/Amino Acids/Dextrose/ Fat Emulsion Intravenous 1,800 ml @ 75 mls/hr TPN CONT IV Last administered on 09/23/19at 00:03; Start 09/22/19 at 22:00; Stop 09/23/19 at 21:59; Status DC Potassium Acetate 80 meq/Magnesium Sulfate 5 meq/ Multivitamins 10 ml/Chromium/ Copper/Manganese/ Seleni/Zn 1 ml/ Insulin Human Regular 20 unit/ Total Parenteral Nutrition/Amino Acids/Dextrose/ Fat Emulsion Intravenous 1,920 ml @ 80 mls/hr TPN CONT IV Last administered on 09/23/19at 21:59; Start 09/23/19 at 22:00; Stop 09/24/19 at 21:59; Status DC Potassium Acetate 60 meq/Magnesium Sulfate 5 meq/ Multivitamins 10 ml/Chromium/ Copper/Manganese/ Seleni/Zn 1 ml/ Insulin Human Regular 30 unit/ Total Parenteral Nutrition/Amino Acids/Dextrose/ Fat Emulsion Intravenous 1,920 ml @ 80 mls/hr TPN CONT IV Last administered on 09/24/19at 21:54; Start 09/24/19 at 22:00; Stop 09/25/19 at 21:59; Status DC Norepinephrine Bitartrate 8 mg/ Dextrose 258 ml @ 13.332 mls/ hr CONT PRN IV PER PROTOCOL Last administered on 10/20/19at 09:09; Start 09/25/19 at 06:30 Albumin Human 500 ml @ 125 mls/hr 1X ONCE IV Last administered on 09/25/19at 08:10; Start 09/25/19 at 08:15; Stop 09/25/19 at 12:14; Status DC Potassium Acetate 40 meq/Magnesium Sulfate 5 meq/ Multivitamins 10 ml/Chromium/ Copper/Manganese/ Seleni/Zn 1 ml/ Insulin Human Regular 30 unit/ Total Parenteral Nutrition/Amino Acids/Dextrose/ Fat Emulsion Intravenous 1,920 ml @ 80 mls/hr TPN CONT IV Last administered on 09/25/19at 22:23; Start 09/25/19 at 22:00; Stop 09/26/19 at 21:59; Status DC Meropenem 1 gm/ Sodium Chloride 100 ml @ 200 mls/hr Q8HRS IV ; Start 09/25/19 at 14:00; Status Cancel Meropenem 1 gm/ Sodium Chloride 100 ml @ 200 mls/hr Q8HRS IV Last administered on 09/25/19at 11:04; Start 09/25/19 at 10:00; Stop 09/25/19 at 13:00; Status DC Meropenem 1 gm/ Sodium Chloride 100 ml @ 200 mls/hr Q12HR IV Last administered on 10/13/19at 08:27; Start 09/25/19 at 21:00; Stop 10/13/19 at 08:56; Status DC Sodium Chloride 1,000 ml @ 1,000 mls/hr 1X ONCE IV Last administered on 09/25/19at 11:06; Start 09/25/19 at 10:45; Stop 09/25/19 at 11:44; Status DC Micafungin Sodium 100 mg/Dextrose 100 ml @ 100 mls/hr Q24H IV Last administered on 10/12/19at 12:34; Start 09/25/19 at 11:00; Stop 10/13/19 at 08:56; Status DC Daptomycin 410 mg/ Sodium Chloride 50 ml @ 100 mls/hr Q24H IV Last a dministered on 09/27/19at 13:33; Start 09/25/19 at 14:00; Stop 09/28/19 at 08:30; Status DC Midazolam HCl (Versed) 2 mg STK-MED ONCE .ROUTE ; Start 09/25/19 at 14:47; Stop 09/25/19 at 14:48; Status DC Fentanyl Citrate (Fentanyl 2ml Vial) 100 mcg STK-MED ONCE .ROUTE ; Start 09/25/19 at 14:47; Stop 09/25/19 at 14:48; Status DC Flumazenil (Romazicon) 0.5 mg STK-MED ONCE IV ; Start 09/25/19 at 14:48; Stop 09/25/19 at 14:48; Status DC Naloxone HCl (Narcan) 0.4 mg STK-MED ONCE .ROUTE ; Start 09/25/19 at 14:48; Stop 09/25/19 at 14:48; Status DC Lidocaine HCl (Lidocaine 1% 20ml Vial) 20 ml STK-MED ONCE .ROUTE ; Start 09/25/19 at 14:48; Stop 09/25/19 at 14:48; Status DC Midazolam HCl (Versed) 2 mg 1X ONCE IV Last administered on 09/25/19at 15:28; Start 09/25/19 at 15:00; Stop 09/25/19 at 15:01; Status DC Fentanyl Citrate (Fentanyl 2ml Vial) 100 mcg 1X ONCE IV Last administered on 09/25/19at 15:28; Start 09/25/19 at 15:00; Stop 09/25/19 at 15:01; Status DC Lidocaine HCl (Lidocaine 1% 20ml Vial) 20 ml 1X ONCE INJ Last administered on 09/25/19at 15:30; Start 09/25/19 at 15:00; Stop 09/25/19 at 15:01; Status DC Sodium Chloride 1,000 ml @ 100 mls/hr Q10H IV Last administered on 10/04/19at 07:30; Start 09/25/19 at 20:00; Stop 10/04/19 at 11:26; Status DC Sodium Bicarbonate (Sodium Bicarb Adult 8.4% Syr) 50 meq 1X ONCE IV Last administered on 09/25/19at 21:47; Start 09/25/19 at 22:00; Stop 09/25/19 at 22:01; Status DC Potassium Acetate 40 meq/Magnesium Sulfate 5 meq/ Multivitamins 10 ml/Chromium/ Copper/Manganese/ Seleni/Zn 1 ml/ Insulin Human Regular 30 unit/ Total Parenteral Nutrition/Amino Acids/Dextrose/ Fat Emulsion Intravenous 1,920 ml @ 80 mls/hr TPN CONT IV Last administered on 09/26/19at 22:28; Start 09/26/19 at 22:00; Stop 09/27/19 at 21:59; Status DC Sodium Chloride 500 ml @ 500 mls/hr 1X ONCE IV Last administered on 09/27/19at 06:39; Start 09/27/19 at 06:45; Stop 09/27/19 at 07:44; Status DC Potassium Acetate 40 meq/Magnesium Sulfate 5 meq/ Multivitamins 10 ml/Chromium/ Copper/Manganese/ Seleni/Zn 1 ml/ Insulin Human Regular 30 unit/ Total Parenteral Nutrition/Amino Acids/Dextrose/ Fat Emulsion Intravenous 1,920 ml @ 80 mls/hr TPN CONT IV Last administered on 09/27/19at 22:03; Start 09/27/19 at 22:00; Stop 09/28/19 at 21:59; Status DC Metoprolol Tartrate (Lopressor Vial) 5 mg PRN Q6HRS PRN IVP HYPERTENSION Last administered on 10/30/19at 18:01; Start 09/28/19 at 09:00 Potassium Acetate 40 meq/Magnesium Sulfate 5 meq/ Multivitamins 10 ml/Chromium/ Copper/Manganese/ Seleni/Zn 1 ml/ Insulin Human Regular 30 unit/ Total Parenteral Nutrition/Amino Acids/Dextrose/ Fat Emulsion Intravenous 1,920 ml @ 80 mls/hr TPN CONT IV Last administered on 09/28/19at 21:26; Start 09/28/19 at 22:00; Stop 09/29/19 at 21:59; Status DC Potassium Acetate 40 meq/Magnesium Sulfate 5 meq/ Multivitamins 10 ml/Chromium/ Copper/Manganese/ Seleni/Zn 1 ml/ Insulin Human Regular 30 unit/ Total Parenteral Nutrition/Amino Acids/Dextrose/ Fat Emulsion Intravenous 1,920 ml @ 80 mls/hr TPN CONT IV Last administered on 09/29/19at 23:23; Start 09/29/19 at 22:00; Stop 09/30/19 at 21:59; Status DC Potassium Acetate 40 meq/Magnesium Sulfate 5 meq/ Multivitamins 10 ml/Chromium/ Copper/Manganese/ Seleni/Zn 1 ml/ Insulin Human Regular 30 unit/ Total Parenteral Nutrition/Amino Acids/Dextrose/ Fat Emulsion Intravenous 1,920 ml @ 80 mls/hr TPN CONT IV Last administered on 09/30/19at 21:35; Start 09/30/19 at 22:00; Stop 10/01/19 at 21:59; Status DC Furosemide (Lasix) 20 mg 1X ONCE IVP Last administered on 10/01/19at 06:26; Start 10/01/19 at 06:15; Stop 10/01/19 at 06:16; Status DC Methylprednisolone Sodium Succinate (SOLU-Medrol 125MG VIAL) 125 mg 1X ONCE IV Last administered on 10/01/19at 06:26; Start 10/01/19 at 06:15; Stop 10/01/19 at 06:16; Status DC Albuterol/ Ipratropium (Duoneb) 3 ml Q4HRS NEB Last administered on 10/31/19at 08:27; Start 10/01/19 at 08:00 Fentanyl Citrate 30 ml @ 0 mls/hr CONT PRN IV SEE PROTOCOL Last administered on 10/22/19at 08:03; Start 10/01/19 at 06:00; Stop 10/22/19 at 12:42; Status DC Propofol 100 ml @ 0 mls/hr CONT PRN IV SEE PROTOCOL Last administered on 10/08/19at 23:50; Start 10/01/19 at 06:00 Fentanyl Citrate (Fentanyl 2ml Vial) 25 mcg PRN Q1HR PRN IV SEE COMMENTS Last administered on 10/31/19at 05:39; Start 10/01/19 at 06:00 Fentanyl Citrate (Fentanyl 2ml Vial) 50 mcg PRN Q1HR PRN IV SEE COMMENTS Last administered on 10/30/19at 18:02; Start 10/01/19 at 06:00 Chlorhexidine Gluconate (Peridex) 15 ml BID MM ; Start 10/01/19 at 09:00; Stop 10/01/19 at 07:58; Status DC Potassium Acetate 40 meq/Magnesium Sulfate 5 meq/ Multivitamins 10 ml/Chromium/ Copper/Manganese/ Seleni/Zn 1 ml/ Insulin Human Regular 30 unit/ Total Parenteral Nutrition/Amino Acids/Dextrose/ Fat Emulsion Intravenous 1,920 ml @ 80 mls/hr TPN CONT IV Last administered on 10/01/19at 21:19; Start 10/01/19 at 22:00; Stop 10/02/19 at 21:59; Status DC Acetylcysteine (Mucomyst 20% Resp Treatment) 600 mg BID NEB Last administered on 10/07/19at 09:33; Start 10/01/19 at 21:00; Stop 10/07/19 at 10:39; Status DC Magnesium Sulfate 100 ml @ 25 mls/hr 1X ONCE IV Last administered on at 15:48; Start 10/01/19 at 15:45; Stop 10/01/19 at 19:44; Status DC Potassium Acetate 40 meq/Magnesium Sulfate 5 meq/ Multivitamins 10 ml/Chromium/ Copper/Manganese/ Seleni/Zn 1 ml/ Insulin Human Regular 30 unit/ Total Parenteral Nutrition/Amino Acids/Dextrose/ Fat Emulsion Intravenous 1,920 ml @ 80 mls/hr TPN CONT IV Last administered on 10/02/19at 21:35; Start 10/02/19 at 22:00; Stop 10/03/19 at 21:59; Status DC Potassium Chloride/Water 100 ml @ 100 mls/hr Q1H IV Last administered on 10/03/19at 08:31; Start 10/03/19 at 07:00; Stop 10/03/19 at 08:59; Status DC Potassium Acetate 40 meq/Magnesium Sulfate 5 meq/ Multivitamins 10 ml/Chromium/ Copper/Manganese/ Seleni/Zn 1 ml/ Insulin Human Regular 30 unit/ Total Parenteral Nutrition/Amino Acids/Dextrose/ Fat Emulsion Intravenous 1,920 ml @ 80 mls/hr TPN CONT IV Last administered on 10/03/19at 21:54; Start 10/03/19 at 22:00; Stop 10/04/19 at 19:34; Status DC Lidocaine HCl (Buffered Lidocaine 1%) 3 ml STK-MED ONCE .ROUTE ; Start 10/03/19 at 12:14; Stop 10/03/19 at 12:14; Status DC Lidocaine HCl (Buffered Lidocaine 1%) 3 ml 1X ONCE IJ Last administered on 10/03/19at 13:11; Start 10/03/19 at 13:00; Stop 10/03/19 at 13:01; Status DC Magnesium Sulfate 50 ml @ 25 mls/hr 1X ONCE IV ; Start 10/04/19 at 08:15; Stop 10/04/19 at 10:14; Status DC Potassium Acetate 40 meq/Magnesium Sulfate 10 meq/ Multivitamins 10 ml/Chromium/ Copper/Manganese/ Seleni/Zn 1 ml/ Insulin Human Regular 20 unit/ Total Parenteral Nutrition/Amino Acids/Dextrose/ Fat Emulsion Intravenous 1,920 ml @ 80 mls/hr TPN CONT IV Last administered on 10/04/19at 21:32; Start 10/04/19 at 22:00; Stop 10/05/19 at 21:59; Status DC Potassium Chloride/Water 100 ml @ 100 mls/hr Q1H IV Last administered on 10/05/19at 09:12; Start 10/05/19 at 08:00; Stop 10/05/19 at 09:59; Status DC Alteplase, Recombinant (Cathflo For Central Catheter Clearance) 4 mg 1X ONCE INT CAT ; Start 10/05/19 at 09:15; Stop 10/05/19 at 09:16; Status UNV Alteplase, Recombinant (Cathflo For Central Catheter Clearance) 4 mg 1X ONCE INT CAT ; Start 10/05/19 at 09:15; Stop 10/05/19 at 09:16; Status UNV Alteplase, Recombinant (Cathflo For Central Catheter Clearance) 4 mg 1X ONCE INT CAT ; Start 10/05/19 at 09:15; Stop 10/05/19 at 09:16; Status UNV Alteplase, Recombinant 4 mg/ Sodium Chloride 20 ml @ 20 mls/hr 1X ONCE IV Last administered on 10/05/19at 10:10; Start 10/05/19 at 10:00; Stop 10/05/19 at 10:59; Status DC Alteplase, Recombinant 4 mg/ Sodium Chloride 20 ml @ 20 mls/hr 1X ONCE IV Last administered on 10/05/19at 10:09; Start 10/05/19 at 10:00; Stop 10/05/19 at 10:59; Status DC Alteplase, Recombinant 4 mg/ Sodium Chloride 20 ml @ 20 mls/hr 1X ONCE IV Last administered on 10/05/19at 10:09; Start 10/05/19 at 10:00; Stop 10/05/19 at 10:59; Status DC Potassium Acetate 60 meq/Magnesium Sulfate 10 meq/ Multivitamins 10 ml/Chromium/ Copper/Manganese/ Seleni/Zn 1 ml/ Insulin Human Regular 20 unit/ Total Parenteral Nutrition/Amino Acids/Dextrose/ Fat Emulsion Intravenous 1,920 ml @ 80 mls/hr TPN CONT IV Last administered on 10/05/19at 21:55; Start 10/05/19 at 22:00; Stop 10/06/19 at 21:59; Status DC Albumin Human 500 ml @ 125 mls/hr 1X ONCE IV Last administered on 10/06/19at 12:01; Start 10/06/19 at 11:15; Stop 10/06/19 at 15:14; Status DC Sodium Chloride 500 ml @ 500 mls/hr 1X ONCE IV Last administered on 10/06/19at 13:50; Start 10/06/19 at 11:15; Stop 10/06/19 at 12:14; Status DC Potassium Acetate 60 meq/Magnesium Sulfate 14 meq/ Multivitamins 10 ml/Chromium/ Copper/Manganese/ Seleni/Zn 1 ml/ Insulin Human Regular 20 unit/ Total Parenteral Nutrition/Amino Acids/Dextrose/ Fat Emulsion Intravenous 1,920 ml @ 80 mls/hr TPN CONT IV Last administered on 10/06/19at 22:26; Start 10/06/19 at 22:00; Stop 10/07/19 at 21:59; Status DC Ciprofloxacin/ Dextrose 200 ml @ 200 mls/hr Q12HR IV Last administered on 10/13/19at 08:27; Start 10/06/19 at 21:00; Stop 10/13/19 at 08:56; Status DC Albumin Human 250 ml @ 62.5 mls/hr 1X ONCE IV Last administered on 10/07/19at 11:09; Start 10/07/19 at 11:00; Stop 10/07/19 at 14:59; Status DC Furosemide (Lasix) 20 mg 1X ONCE IVP Last administered on 10/07/19at 14:52; Start 10/07/19 at 10:45; Stop 10/07/19 at 10:49; Status DC Potassium Acetate 60 meq/Magnesium Sulfate 14 meq/ Multivitamins 10 ml/Chromium/ Copper/Manganese/ Seleni/Zn 1 ml/ Insulin Human Regular 15 unit/ Total Parenteral Nutrition/Amino Acids/Dextrose/ Fat Emulsion Intravenous 1,920 ml @ 80 mls/hr TPN CONT IV Last administered on 10/07/19at 22:08; Start 10/07/19 at 22:00; Stop 10/08/19 at 21:59; Status DC Potassium Acetate 60 meq/Magnesium Sulfate 14 meq/ Multivitamins 10 ml/Chromium/ Copper/Manganese/ Seleni/Zn 1 ml/ Insulin Human Regular 15 unit/ Total Parenteral Nutrition/Amino Acids/Dextrose/ Fat Emulsion Intravenous 1,920 ml @ 80 mls/hr TPN CONT IV Last administered on 10/08/19at 22:12; Start 10/08/19 at 22:00; Stop 10/09/19 at 21:59; Status DC Potassium Acetate 60 meq/Magnesium Sulfate 14 meq/ Multivitamins 10 ml/Chromium/ Copper/Manganese/ Seleni/Zn 1 ml/ Insulin Human Regular 15 unit/ Total Parenteral Nutrition/Amino Acids/Dextrose/ Fat Emulsion Intravenous 1,920 ml @ 80 mls/hr TPN CONT IV Last administered on 10/09/19at 22:22; Start 10/09/19 at 22:00; Stop 10/10/19 at 21:59; Status DC Furosemide (Lasix) 20 mg 1X ONCE IVP Last administered on 10/10/19at 11:07; Start 10/10/19 at 10:30; Stop 10/10/19 at 10:34; Status DC Potassium Acetate 60 meq/Magnesium Sulfate 14 meq/ Multivitamins 10 ml/Chromium/ Copper/Manganese/ Seleni/Zn 1 ml/ Insulin Human Regular 15 unit/ Sodium Chloride 20 meq/Total Parenteral Nutrition/Amino Acids/Dextrose/ Fat Emulsion Intravenous 1,920 ml @ 80 mls/hr TPN CONT IV Last administered on 10/10/19at 21:54; Start 10/10/19 at 22:00; Stop 10/11/19 at 21:59; Status DC Potassium Acetate 30 meq/Magnesium Sulfate 14 meq/ Multivitamins 10 ml/Chromium/ Copper/Manganese/ Seleni/Zn 1 ml/ Insulin Human Regular 15 unit/ Sodium Chloride 20 meq/Potassium Chloride 30 meq/ Total Parenteral Nutrition/Amino Acids/Dextrose/ Fat Emulsion Intravenous 1,920 ml @ 80 mls/hr TPN CONT IV Last administered on 10/11/19at 21:46; Start 10/11/19 at 22:00; Stop 10/12/19 at 21:59; Status DC Sodium Chloride 80 meq/Potassium Chloride 30 meq/ Potassium Acetate 30 meq/Magnesium Sulfate 14 meq/ Multivitamins 10 ml/Chromium/ Copper/Manganese/ Seleni/Zn 1 ml/ Insulin Human Regular 15 unit/ Total Parenteral Nutrition/Amino Acids/Dextrose/ Fat Emulsion Intravenous 1,920 ml @ 80 mls/hr TPN CONT IV Last administered on 10/12/19at 22:33; Start 10/12/19 at 22:00; Stop 10/13/19 at 21:59; Status DC Furosemide (Lasix) 40 mg 1X ONCE IVP Last administered on 10/12/19at 16:27; Start 10/12/19 at 15:30; Stop 10/12/19 at 15:33; Status DC Albumin Human 250 ml @ 62.5 mls/hr 1X ONCE IV Last administered on 10/12/19at 16:27; Start 10/12/19 at 15:30; Stop 10/12/19 at 19:29; Status DC Sodium Chloride 80 meq/Potassium Chloride 30 meq/ Potassium Acetate 30 meq/Magnesium Sulfate 14 meq/ Multivitamins 10 ml/Chromium/ Copper/Manganese/ Seleni/Zn 1 ml/ Insulin Human Regular 15 unit/ Total Parenteral Nutrition/Amino Acids/Dextrose/ Fat Emulsion Intravenous 1,920 ml @ 80 mls/hr TPN CONT IV Last administered on 10/13/19at 22:25; Start 10/13/19 at 22:00; Stop 10/14/19 at 21:59; Status DC Sodium Chloride 80 meq/Potassium Chloride 30 meq/ Potassium Acetate 30 meq/Magnesium Sulfate 14 meq/ Multivitamins 10 ml/Chromium/ Copper/Manganese/ Seleni/Zn 1 ml/ Insulin Human Regular 15 unit/ Total Parenteral Nutrition/Amino Acids/Dextrose/ Fat Emulsion Intravenous 1,920 ml @ 80 mls/hr TPN CONT IV Last administered on 10/14/19at 21:32; Start 10/14/19 at 22:00; Stop 10/15/19 at 21:59; Status DC Sodium Chloride 80 meq/Potassium Chloride 30 meq/ Potassium Acetate 30 meq/Magnesium Sulfate 14 meq/ Multivitamins 10 ml/Chromium/ Copper/Manganese/ Seleni/Zn 1 ml/ Insulin Human Regular 15 unit/ Total Parenteral Nutrition/Amino Acids/Dextrose/ Fat Emulsion Intravenous 1,920 ml @ 80 mls/hr TPN CONT IV Last administered on 10/15/19at 21:53; Start 10/15/19 at 22:00; Stop 10/16/19 at 21:59; Status DC Acetylcysteine (Mucomyst 20% Resp Treatment) 600 mg RTBID NEB Last administered on 10/31/19at 08:28; Start 10/15/19 at 12:00 Sodium Chloride 80 meq/Potassium Chloride 30 meq/ Potassium Acetate 30 meq/Mag nesium Sulfate 14 meq/ Multivitamins 10 ml/Chromium/ Copper/Manganese/ Seleni/Zn 1 ml/ Insulin Human Regular 15 unit/ Total Parenteral Nutrition/Amino Acids/Dextrose/ Fat Emulsion Intravenous 1,920 ml @ 80 mls/hr TPN CONT IV Last administered on 10/16/19at 22:06; Start 10/16/19 at 22:00; Stop 10/17/19 at 21:59; Status DC Meropenem 500 mg/ Sodium Chloride 50 ml @ 100 mls/hr Q6HRS IV Last administered on 10/31/19at 05:38; Start 10/16/19 at 18:00 Daptomycin 500 mg/ Sodium Chloride 50 ml @ 100 mls/hr Q24H IV Last administered on 10/24/19at 21:47; Start 10/16/19 at 19:00; Stop 10/25/19 at 08:13; Status DC Sodium Chloride 80 meq/Potassium Chloride 30 meq/ Potassium Acetate 30 meq/Magnesium Sulfate 14 meq/ Multivitamins 10 ml/Chromium/ Copper/Manganese/ Seleni/Zn 1 ml/ Insulin Human Regular 15 unit/ Total Parenteral Nutrition/Amino Acids/Dextrose/ Fat Emulsion Intravenous 1,920 ml @ 80 mls/hr TPN CONT IV Last administered on 10/17/19at 22:09; Start 10/17/19 at 22:00; Stop 10/18/19 at 21:59; Status DC Heparin Sodium (Porcine) 1000 unit/Sodium Chloride 1,001 ml @ 1,001 mls/hr 1X ONCE IRR ; Start 10/18/19 at 06:00; Stop 10/18/19 at 06:59; Status DC Propofol (Diprivan) 200 mg STK-MED ONCE IV ; Start 10/18/19 at 07:44; Stop 10/18/19 at 07:44; Status DC Lidocaine HCl (Lidocaine Pf 2% Vial) 5 ml STK-MED ONCE .ROUTE ; Start 10/18/19 at 07:44; Stop 10/18/19 at 07:44; Status DC Fentanyl Citrate (Fentanyl 2ml Vial) 100 mcg STK-MED ONCE .ROUTE ; Start 10/18/19 at 07:44; Stop 10/18/19 at 07:44; Status DC Rocuronium [place] (Zemuron) 100 mg STK-MED ONCE .ROUTE ; Start 10/18/19 at 07:44; Stop 10/18/19 at 07:44; Status DC Micafungin Sodium 100 mg/Dextrose 100 ml @ 100 mls/hr Q24H IV Last administered on 10/31/19at 08:28; Start 10/18/19 at 08:30 Bupivacaine HCl/ Epinephrine Bitart (Sensorcain-Epi 0.5%-1:[id number] Mpf) 30 ml STK-MED ONCE .ROUTE ; Start 10/18/19 at 08:34; Stop 6/30/20 at 08:35; Status DC Iohexol (Omnipaque 300 Mg/ml) 50 ml STK-MED ONCE .ROUTE Last administered on 10/18/19at 13:30; Start 10/18/19 at 08:35; Stop 10/18/19 at 08:35; Status DC Sodium Chloride 80 meq/Potassium Chloride 30 meq/ Potassium Acetate 30 meq/Magnesium Sulfate 14 meq/ Multivitamins 10 ml/Chromium/ Copper/Manganese/ Seleni/Zn 1 ml/ Insulin Human Regular 15 unit/ Total Parenteral Nutrition/Amino Acids/Dextrose/ Fat Emulsion Intravenous 1,920 ml @ 80 mls/hr TPN CONT IV Last administered on 10/19/19at 01:22; Start 10/18/19 at 22:00; Stop 10/19/19 at 21:59; Status DC Phenylephrine HCl (Brayden-Synephrine Inj) 10 mg STK-MED ONCE .ROUTE ; Start 09/20 at 10:15; Stop 10/18/19 at 10:15; Status DC Desflurane (Suprane) 90 ml STK-MED ONCE IH ; Start 10/18/19 at 10:18; Stop at 10:19; Status DC Albumin Human 500 ml @ As Directed STK-MED ONCE IV ; Start 10/18/19 at 11:06; Stop 10/18/19 at 11:06; Status DC Vasopressin (Vasostrict) 20 unit STK-MED ONCE .ROUTE ; Start 10/18/19 at 12:23; Stop 10/18/19 at 12:23; Status DC Phenylephrine HCl (Brayden-Synephrine Inj) 10 mg STK-MED ONCE .ROUTE ; Start 10/18/19 at 13:33; Stop 10/18/19 at 13:33; Status DC Phenylephrine HCl (Brayden-Synephrine Inj) 10 mg STK-MED ONCE .ROUTE ; Start 10/18/19 at 13:33; Stop 10/18/19 at 13:33; Status DC Ondansetron HCl (Zofran) 4 mg STK-MED ONCE .ROUTE ; Start 10/18/19 at 13:33; Stop 10/18/19 at 13:33; Status DC Enoxaparin Sodium (Lovenox 40mg Syringe) 40 mg Q24H SQ Last administered on 10/31/19at 09:13; Start 10/19/19 at 08:00 Sodium Chloride (Normal Saline Flush) 3 ml QSHIFT PRN IV AFTER MEDS AND BLOOD DRAWS; Start 10/18/19 at 14:45 Naloxone HCl (Narcan) 0.4 mg PRN Q2MIN PRN IV SEE INSTRUCTIONS; Start 10/18/19 at 14:45 Sodium Chloride 1,000 ml @ 25 mls/hr Q24H IV Last administered on 10/30/19at 14:27; Start 10/18/19 at 14:33 Morphine Sulfate (Morphine Sulfate) 1 mg PRN Q1HR PRN IV PAIN; Start 10/18/19 at 14:45 Midazolam HCl 100 mg/Sodium Chloride 100 ml @ 1 mls/hr CONT PRN IV SEE I/O RECORD Last administered on 10/21/19at 18:48; Start 10/18/19 at 14:45 Phenylephrine HCl (PHENYLEPHRINE in 0.9% NACL PF) 1 mg STK-MED ONCE IV ; Start 10/18/19 at 14:44; Stop 10/18/19 at 14:45; Status DC Ephedrine Sulfate (ePHEDrine PF IN SALINE SYRINGE) 50 mg STK-MED ONCE IV ; Start 10/18/19 at 14:45; Stop 10/18/19 at 14:45; Status DC Vasopressin 20 unit/Dextrose 101 ml @ 12 mls/hr CONT PRN IV SEE I/O RECORD Last administered on 10/25/19at 04:17; Start 10/18/19 at 15:30 Sodium Chloride 1,000 ml @ 1,000 mls/hr 1X ONCE IV Last administered on 10/18/19at 15:42; Start 10/18/19 at 15:45; Stop 10/18/19 at 16:44; Status DC Albumin Human 500 ml @ 125 mls/hr 1X ONCE IV ; Start 10/18/19 at 16:00; Stop 10/18/19 at 19:59; Status DC Albumin Human 500 ml @ 125 mls/hr PRN Q1HR PRN IV PER PROTOCOL; Start 10/18/19 at 15:45 Magnesium Sulfate 50 ml @ 25 mls/hr 1X ONCE IV Last administered on 10/18/19at 17:02; Start 10/18/19 at 16:30; Stop 10/18/19 at 18:29; Status DC Sodium Bicarbonate (Sodium Bicarb Adult 8.4% Syr) 50 meq STK-MED ONCE .ROUTE ; Start 10/18/19 at 16:20; Stop 10/18/19 at 16:20; Status DC Sodium Bicarbonate (Sodium Bicarb Adult 8.4% Syr) 100 meq 1X ONCE IV Last administered on 10/18/19at 17:07; Start 10/18/19 at 16:30; Stop 10/18/19 at 16:31; Status DC Sodium Bicarbonate 150 meq/Dextrose 1,150 ml @ 75 mls/hr 1X ONCE IV Last administered on 10/18/19at 20:02; Start 10/18/19 at 16:30; Stop 10/19/19 at 07:49; Status DC Sodium Chloride 80 meq/Potassium Chloride 30 meq/ Potassium Acetate 30 meq/Magnesium Sulfate 14 meq/ Multivitamins 10 ml/Chromium/ Copper/Manganese/ Seleni/Zn 1 ml/ Insulin Human Regular 15 unit/ Total Parenteral Nutrition/Amino Acids/Dextrose/ Fat Emulsion Intravenous 1,920 ml @ 80 mls/hr TPN CONT IV Last administered on 10/19/19at 23:05; Start 10/19/19 at 22:00; Stop 10/20/19 at 21:59; Status DC Sodium Chloride 100 meq/Potassium Chloride 30 meq/ Potassium Acetate 30 meq/Magnesium Sulfate 12 meq/ Multivitamins 10 ml/Chromium/ Copper/Manganese/ Seleni/Zn 1 ml/ Insulin Human Regular 15 unit/ Total Parenteral Nutrition/Amino Acids/Dextrose/ Fat Emulsion Intravenous 1,920 ml @ 80 mls/hr TPN CONT IV Last administered on 10/20/19at 21:52; Start 10/20/19 at 22:00; Stop 10/21/19 at 21:59; Status DC Sodium Chloride 100 meq/Potassium Chloride 30 meq/ Potassium Acetate 30 meq/Magnesium Sulfate 12 meq/ Multivitamins 10 ml/Chromium/ Copper/Manganese/ Seleni/Zn 1 ml/ Insulin Human Regular 15 unit/ Total Parenteral Nutrition/Amino Acids/Dextrose/ Fat Emulsion Intravenous 1,920 ml @ 80 mls/hr TPN CONT IV Last administered on 10/21/19at 21:46; Start 10/21/19 at 22:00; Stop 10/22/19 at 21:59; Status DC Sodium Chloride 100 meq/Potassium Chloride 30 meq/ Potassium Acetate 30 meq/Magnesium Sulfate 12 meq/ Multivitamins 10 ml/Chromium/ Copper/Manganese/ Seleni/Zn 1 ml/ Insulin Human Regular 15 unit/ Total Parenteral Nutrition/Amino Acids/Dextrose/ Fat Emulsion Intravenous 1,800 ml @ 75 mls/hr TPN CONT IV Last administered on 10/22/19at 22:04; Start 10/22/19 at 22:00; Stop 10/23/19 at 21:59; Status DC Fentanyl Citrate 55 ml @ 0 mls/hr CONT PRN IV SEE COMMENTS Last administered on 10/24/19at 23:55; Start 10/22/19 at 13:00; Stop 10/27/19 at 17:28; Status DC Sodium Chloride 100 meq/Potassium Chloride 30 meq/ Potassium Acetate 30 meq/Magnesium Sulfate 12 meq/ Multivitamins 10 ml/Chromium/ Copper/Manganese/ Seleni/Zn 1 ml/ Insulin Human Regular 15 unit/ Total Parenteral Nutrition/Amino Acids/Dextrose/ Fat Emulsion Intravenous 1,680 ml @ 70 mls/hr TPN CONT IV Last administered on 10/23/19at 21:23; Start 10/23/19 at 22:00; Stop 10/24/19 at 21:59; Status DC Sodium Chloride 110 meq/Potassium Chloride 30 meq/ Potassium Acetate 30 meq/Magnesium Sulfate 15 meq/ Multivitamins 10 ml/Chromium/ Copper/Manganese/ Seleni/Zn 1 ml/ Insulin Human Regular 15 unit/ Total Parenteral Nutrition/Amino Acids/Dextrose/ Fat Emulsion Intravenous 1,680 ml @ 70 mls/hr TPN CONT IV Last administered on 10/24/19at 21:48; Start 10/24/19 at 22:00; Stop 10/25/19 at 21:59; Status DC Sodium Chloride 110 meq/Potassium Chloride 30 meq/ Potassium Acetate 30 meq/Magnesium Sulfate 15 meq/ Multivitamins 10 ml/Chromium/ Copper/Manganese/ S thien/Zn 1 ml/ Insulin Human Regular 15 unit/ Total Parenteral Nutrition/Amino Acids/Dextrose/ Fat Emulsion Intravenous 1,680 ml @ 70 mls/hr TPN CONT IV Last administered on 10/25/19at 21:33; Start 10/25/19 at 22:00; Stop 10/26/19 at 21:59; Status DC Sodium Chloride 110 meq/Potassium Chloride 30 meq/ Potassium Acetate 30 meq/Magnesium Sulfate 15 meq/ Multivitamins 10 ml/Chromium/ Copper/Manganese/ Seleni/Zn 1 ml/ Insulin Human Regular 15 unit/ Total Parenteral Nutrition/Amino Acids/Dextrose/ Fat Emulsion Intravenous 1,680 ml @ 70 mls/hr TPN CONT IV Last administered on 10/26/19at 21:51; Start 10/26/19 at 22:00; Stop 10/27/19 at 21:59; Status DC Sodium Chloride 90 meq/Potassium Chloride 30 meq/ Potassium Acetate 30 meq/Magnesium Sulfate 15 meq/ Multivitamins 10 ml/Chromium/ Copper/Manganese/ Seleni/Zn 1 ml/ Insulin Human Regular 15 unit/ Total Parenteral Nutrition/Amino Acids/Dextrose/ Fat Emulsion Intravenous 1,680 ml @ 70 mls/hr TPN CONT IV Last administered on 10/27/19at 22:38; Start 10/27/19 at 22:00; Stop 10/28/19 at 21:59; Status DC Fentanyl Citrate 30 ml @ 0 mls/hr CONT PRN IV SEE I/O RECORD; Start 10/27/19 at 17:30 Fentanyl (Duragesic 12mcg/ Hr Patch) 1 patch Q3DAYS TD Last administered on 10/31/19at 10:01; Start 10/28/19 at 09:00 Sodium Chloride 90 meq/Potassium Chloride 30 meq/ Potassium Acetate 30 meq/Magnesium Sulfate 15 meq/ Multivitamins 10 ml/Chromium/ Copper/Manganese/ Seleni/Zn 1 ml/ Insulin Human Regular 15 unit/ Total Parenteral Nutrition/Amino Acids/Dextrose/ Fat Emulsion Intravenous 1,680 ml @ 70 mls/hr TPN CONT IV Last administered on 10/28/19at 21:59; Start 10/28/19 at 22:00; Stop 10/29/19 at 21:59; Status DC Sodium Chloride 90 meq/Potassium Chloride 30 meq/ Potassium Acetate 30 meq/Magnesium Sulfate 15 meq/ Multivitamins 10 ml/Chromium/ Copper/Manganese/ Seleni/Zn 1 ml/ Insulin Human Regular 15 unit/ Total Parenteral Nutrition/Amino Acids/Dextrose/ Fat Emulsion Intravenous 1,680 ml @ 70 mls/hr TPN CONT IV Last administered on 10/29/19at 21:35; Start 10/29/19 at 22:00; Stop 10/30/19 at 21:59; Status DC Vancomycin HCl (Vanco Per Pharmacy) 1 each PRN DAILY PRN MC SEE COMMENTS Last administered on 10/30/19at 16:07; Start 10/30/19 at 09:15 Ciprofloxacin/ Dextrose 200 ml @ 200 mls/hr Q12HR IV Last administered on 10/31/19at 08:31; Start 10/30/19 at 10:00 Vancomycin HCl 2 gm/Sodium Chloride 500 ml @ 250 mls/hr 1X ONCE IV Last administered on 10/30/19at 10:34; Start 10/30/19 at 10:00; Stop 10/30/19 at 11:59; Status DC Sodium Chloride 90 meq/Potassium Chloride 30 meq/ Potassium Acetate 30 m eq/Magnesium Sulfate 15 meq/ Multivitamins 10 ml/Chromium/ Copper/Manganese/ Seleni/Zn 1 ml/ Insulin Human Regular 15 unit/ Total Parenteral Nutrition/Amino Acids/Dextrose/ Fat Emulsion Intravenous 1,680 ml @ 70 mls/hr TPN CONT IV Last administered on 10/30/19at 22:02; Start 10/30/19 at 22:00; Stop 10/31/19 at 21:59 Diphenhydramine HCl (Benadryl) 25 mg 1X ONCE IVP Last administered on 10/30/19at 14:26; Start 10/30/19 at 14:30; Stop 10/30/19 at 14:31; Status DC Vancomycin HCl 1.5 gm/Sodium Chloride 500 ml @ 250 mls/hr Q8H IV Last administered on 10/31/19at 03:08; Start 10/30/19 at 18:30 Vancomycin HCl (Vancomycin Trough Level) 1 each 1X ONCE MC ; Start 10/31/19 at 10:00; Stop 10/31/19 at 10:01; Status DC Active Scripts Active Reported Bisoprolol Fumarate 5 Mg Tablet 10 Mg PO DAILY Vitals/I & O Vital Sign - Last 24 Hours 10/30/19 10/30/19 10/30/19 10/30/19 11:00 11:50 12:00 12:06 Temp 100.0 100.0 Pulse 124 127 Resp 41 38 B/P (MAP) 150/91 (110) 133/78 (96) Pulse Ox 98 100 97 O2 Delivery Trach shield Trach Collar Trach shield Tracheal Collar O2 Flow Rate 9.0 9.0 9.0 8.0 10/30/19 10/30/19 10/30/19 10/30/19 12:42 13:00 13:15 14:00 Temp 99.2 99.2 Pulse 126 123 Resp 40 38 33 36 B/P (MAP) 146/87 (106) 132/86 (101) Pulse Ox 100 100 95 O2 Delivery Tracheal Collar Trach shield Tracheal Collar Trach shield O2 Flow Rate 9.0 9.0 9.0 9.0 10/30/19 10/30/19 10/30/19 10/30/19 15:00 15:34 16:00 16:00 Temp 100.2 100.2 Pulse 126 127 Resp 32 28 B/P (MAP) 153/91 (111) 113/91 (98) Pulse Ox 96 97 100 O2 Delivery Ventilator Ventilator Ventilator Mechanical Ventilator 10/30/19 10/30/19 10/30/19 10/30/19 17:00 17:30 18:00 18:01 Temp 101.5 101.5 Pulse 134 134 134 Resp 26 28 B/P (MAP) 152/84 (106) 149/80 (103) 152/84 Pulse Ox 97 97 97 O2 Delivery Ventilator Ventilator Ventilator 10/30/19 10/30/19 10/30/19 10/30/19 18:02 18:35 19:00 20:00 Pulse 114 Resp 33 28 20 B/P (MAP) 117/66 (83) Pulse Ox 97 98 98 O2 Delivery Ventilator Ventilator Ventilator Mechanical Ventilator 10/30/19 10/30/19 10/30/19 10/30/19 20:00 20:20 21:00 22:00 Temp 100.4 100.4 Pulse 110 110 106 Resp 20 12 12 B/P (MAP) 144/81 (102) 129/76 (93) 119/73 (88) Pulse Ox 99 100 100 100 O2 Delivery Ventilator Ventilator Ventilator Ventilator 10/30/19 10/30/19 10/31/19 10/31/19 23:00 23:16 00:00 00:00 Temp 99.9 99.9 Pulse 113 114 Resp 18 20 B/P (MAP) 116/71 (86) 116/81 (93) Pulse Ox 99 100 99 O2 Delivery Ventilator Ventilator Mechanical Ventilator Ventilator 10/31/19 10/31/19 10/31/19 10/31/19 01:00 02:00 02:38 03:00 Pulse 115 116 120 Resp 21 25 31 B/P (MAP) 125/77 (93) 119/78 (92) 111/73 (86) Pulse Ox 100 100 99 99 O2 Delivery Ventilator Ventilator Ventilator Ventilator 10/31/19 10/31/19 10/31/19 10/31/19 03:45 04:00 04:40 05:00 Temp 100.3 100.3 Pulse 118 119 Resp 20 19 B/P (MAP) 131/85 (100) 138/98 (111) Pulse Ox 100 100 99 O2 Delivery Mechanical Ventilator Ventilator Ventilator Ventilator 10/31/19 10/31/19 10/31/19 06:00 08:28 10:01 Pulse 116 Resp 20 28 B/P (MAP) 148/74 (98) Pulse Ox 100 97 40 O2 Delivery Ventilator Ventilator Tracheal Collar Intake and Output 10/30/19 10/30/19 10/31/19 15:00 23:00 07:00 Intake Total 50 ml 200 ml 2584 ml Output Total 820 ml 1135 ml 1115 ml Balance -770 ml -935 ml 1469 ml Justicifation of Admission Dx: Justifications for Admission: Justification of Admission Dx: Yes DAVIN LANDEROS MD Oct 31, 2019 10:33
[2019-10-31] MEDS: TPN PER PHARMACY MC PRN (11:15)
--- NOTE | 2019-10-31 11:16 | NUR ---
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, 8 inches Weight: 94.572348 kg Current diet: NPO LABS: Sodium: 137 Potassium: 4.3 Chloride: 104 Calcium: 8.5 Corrected Calcium: 10.82 Magnesium: 2.1 CO2: 29 SCr: 0.5 Glucose: 110-124 Albumin: 1.1 AST: 25 ALT: 37 TPN FORMULA: TPN TYPE: Central Continuous AMINO ACIDS: 85 gm DEXTROSE: 250 gm LIPIDS: 20 gm SODIUM CHLORIDE: 90 mEq SODIUM ACETATE: - mEq SODIUM PHOSPHATE: - mmol POTASSIUM CHLORIDE: 30 mEq POTASSIUM ACETATE: 30 mEq POTASSIUM PHOSPHATE: - mmol MAGNESIUM: 15 mEq CALCIUM: - mEq INSULIN: 15 units MULTIPLE VITAMIN: 10 ml TRACE ELEMENTS: 1 ml ml(s) TPN PLAN: Tube feed not tolerated, on hold indefinitely. Macros increased per dietary recommendation since TF off. Lytes stable, no other changes. BMP in AM. R: Continue TPN ABOVE. Will monitor electrolytes, glucose, and tolerance to TPN. CHRISTIAN VALLEJO [facility], 10/31/19 1113
--- NOTE | 2019-10-31 11:42 | PDOC ---
SURGICAL PROGRESS NOTE Subjective asleep Vital Signs Vital Signs Date Time Temp Pulse Resp B/P (MAP) Pulse Ox O2 Delivery O2 Flow Rate FiO2 10/31/19 10:01 28 40 Tracheal Collar 10/31/19 06:00 116 148/74 (98) 10/31/19 04:00 100.3 100.3 10/30/19 14:00 9.0 I&O Intake and Output 10/31/19 06:59 Intake Total 2834 ml Output Total 3110 ml Balance -276 ml IV Total 2784 ml Tube Feeding 50 ml Output Urine Total 1170 ml Gastric Drainage Total 400 ml Drainage Total 1540 ml General: Cooperative, No acute distress Abdomen: Soft, Other (drains in place) Labs Laboratory Tests Test 10/29/19 17:27 10/30/19 00:26 10/30/19 05:15 10/30/19 12:38 Glucose (Fingerstick) 116 mg/dL (70-99) 120 mg/dL (70-99) 302 mg/dL (70-99) White Blood Count 18.5 x10^3/uL (4.0-11.0) Red Blood Count 2.99 x10^6/uL (3.50-5.40) Hemoglobin 8.8 g/dL (12.0-15.5) Hematocrit 26.3 % (36.0-47.0) Mean Corpuscular Volume 88 fL (79-100) Mean Corpuscular Hemoglobin 29 pg (25-35) Mean Corpuscular Hemoglobin Concent 33 g/dL (31-37) Red Cell Distribution Width 15.0 % (11.5-14.5) Platelet Count 693 x10^3/uL (140-400) Neutrophils (%) (Auto) 82 % (31-73) Lymphocytes (%) (Auto) 10 % (24-48) Monocytes (%) (Auto) 7 % (0-9) Eosinophils (%) (Auto) 1 % (0-3) Basophils (%) (Auto) 0 % (0-3) Neutrophils # (Auto) 15.1 x10^3/uL (1.8-7.7) Lymphocytes # (Auto) 1.9 x10^3/uL (1.0-4.8) Monocytes # (Auto) 1.3 x10^3/uL (0.0-1.1) Eosinophils # (Auto) 0.1 x10^3/uL (0.0-0.7) Basophils # (Auto) 0.0 x10^3/uL (0.0-0.2) Sodium Level 139 mmol/L (136-145) Potassium Level 4.6 mmol/L (3.5-5.1) Chloride Level 103 mmol/L (98-107) Carbon Dioxide Level 30 mmol/L (21-32) Anion Gap 6 (6-14) Blood Urea Nitrogen 11 mg/dL (7-20) Creatinine 0.5 mg/dL (0.6-1.0) Estimated GFR (Cockcroft-Gault) 131.1 BUN/Creatinine Ratio 22 (6-20) Glucose Level 122 mg/dL (70-99) Calcium Level 9.3 mg/dL (8.5-10.1) Total Bilirubin 0.5 mg/dL (0.2-1.0) Aspartate Amino Transf (AST/SGOT) 23 U/L (15-37) Alanine Aminotransferase (ALT/SGPT) 35 U/L (14-59) Alkaline Phosphatase 156 U/L (46-116) Total Protein 4.8 g/dL (6.4-8.2) Albumin 1.5 g/dL (3.4-5.0) Albumin/Globulin Ratio 0.5 (1.0-1.7) Test 10/30/19 17:58 10/31/19 00:21 10/31/19 05:35 10/31/19 05:37 Glucose (Fingerstick) 106 mg/dL (70-99) 124 mg/dL (70-99) 110 mg/dL (70-99) White Blood Count 10.5 x10^3/uL (4.0-11.0) Red Blood Count 2.48 x10^6/uL (3.50-5.40) Hemoglobin 7.4 g/dL (12.0-15.5) Hematocrit 21.7 % (36.0-47.0) Mean Corpuscular Volume 88 fL (79-100) Mean Corpuscular Hemoglobin 30 pg (25-35) Mean Corpuscular Hemoglobin Concent 34 g/dL (31-37) Red Cell Distribution Width 14.9 % (11.5-14.5) Platelet Count 543 x10^3/uL (140-400) Neutrophils (%) (Auto) 83 % (31-73) Lymphocytes (%) (Auto) 8 % (24-48) Monocytes (%) (Auto) 8 % (0-9) Eosinophils (%) (Auto) 2 % (0-3) Basophils (%) (Auto) 0 % (0-3) Neutrophils # (Auto) 8.7 x10^3/uL (1.8-7.7) Lymphocytes # (Auto) 0.8 x10^3/uL (1.0-4.8) Monocytes # (Auto) 0.8 x10^3/uL (0.0-1.1) Eosinophils # (Auto) 0.2 x10^3/uL (0.0-0.7) Basophils # (Auto) 0.0 x10^3/uL (0.0-0.2) Sodium Level 137 mmol/L (136-145) Potassium Level 4.3 mmol/L (3.5-5.1) Chloride Level 104 mmol/L (98-107) Carbon Dioxide Level 29 mmol/L (21-32) Anion Gap 4 (6-14) Blood Urea Nitrogen 9 mg/dL (7-20) Creatinine 0.5 mg/dL (0.6-1.0) Estimated GFR (Cockcroft-Gault) 131.1 Glucose Level 113 mg/dL (70-99) Calcium Level 8.5 mg/dL (8.5-10.1) Phosphorus Level 3.8 mg/dL (2.6-4.7) Magnesium Level 2.1 mg/dL (1.8-2.4) Laboratory Tests Test 10/30/19 12:38 10/30/19 17:58 10/31/19 00:21 10/31/19 05:35 Glucose (Fingerstick) 302 mg/dL (70-99) 106 mg/dL (70-99) 124 mg/dL (70-99) White Blood Count 10.5 x10^3/uL (4.0-11.0) Red Blood Count 2.48 x10^6/uL (3.50-5.40) Hemoglobin 7.4 g/dL (12.0-15.5) Hematocrit 21.7 % (36.0-47.0) Mean Corpuscular Volume 88 fL (79-100) Mean Corpuscular Hemoglobin 30 pg (25-35) Mean Corpuscular Hemoglobin Concent 34 g/dL (31-37) Red Cell Distribution Width 14.9 % (11.5-14.5) Platelet Count 543 x10^3/uL (140-400) Neutrophils (%) (Auto) 83 % (31-73) Lymphocytes (%) (Auto) 8 % (24-48) Monocytes (%) (Auto) 8 % (0-9) Eosinophils (%) (Auto) 2 % (0-3) Basophils (%) (Auto) 0 % (0-3) Neutrophils # (Auto) 8.7 x10^3/uL (1.8-7.7) Lymphocytes # (Auto) 0.8 x10^3/uL (1.0-4.8) Monocytes # (Auto) 0.8 x10^3/uL (0.0-1.1) Eosinophils # (Auto) 0.2 x10^3/uL (0.0-0.7) Basophils # (Auto) 0.0 x10^3/uL (0.0-0.2) Sodium Level 137 mmol/L (136-145) Potassium Level 4.3 mmol/L (3.5-5.1) Chloride Level 104 mmol/L (98-107) Carbon Dioxide Level 29 mmol/L (21-32) Anion Gap 4 (6-14) Blood Urea Nitrogen 9 mg/dL (7-20) Creatinine 0.5 mg/dL (0.6-1.0) Estimated GFR (Cockcroft-Gault) 131.1 Glucose Level 113 mg/dL (70-99) Calcium Level 8.5 mg/dL (8.5-10.1) Phosphorus Level 3.8 mg/dL (2.6-4.7) Magnesium Level 2.1 mg/dL (1.8-2.4) Test 10/31/19 05:37 Glucose (Fingerstick) 110 mg/dL (70-99) Problem List Problems Medical Problems: (1) Acute pancreatitis Status: Acute (2) Cholelithiasis Status: Acute Assessment/Plan supportive care Justicifation of Admission Dx: Justifications for Admission: Justification of Admission Dx: Yes 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 RACECAR DRIVER Oct 31, 2019 11:42
--- NOTE | 2019-10-31 12:59 | PDOC ---
Objective: Objective: Tmax 101.5 Vital Signs: Vital Signs Date Time Temp Pulse Resp B/P (MAP) Pulse Ox O2 Delivery O2 Flow Rate FiO2 10/31/19 12:19 97 Tracheal Collar 8.0 10/31/19 10:01 28 10/31/19 06:00 116 148/74 (98) 10/31/19 04:00 100.3 100.3 Labs: Laboratory Tests Test 10/30/19 17:58 10/31/19 00:21 10/31/19 05:35 10/31/19 05:37 Glucose (Fingerstick) 106 mg/dL 124 mg/dL 110 mg/dL White Blood Count 10.5 x10^3/uL Red Blood Count 2.48 x10^6/uL Hemoglobin 7.4 g/dL Hematocrit 21.7 % Mean Corpuscular Volume 88 fL Mean Corpuscular Hemoglobin 30 pg Mean Corpuscular Hemoglobin Concent 34 g/dL Red Cell Distribution Width 14.9 % Platelet Count 543 x10^3/uL Neutrophils (%) (Auto) 83 % Lymphocytes (%) (Auto) 8 % Monocytes (%) (Auto) 8 % Eosinophils (%) (Auto) 2 % Basophils (%) (Auto) 0 % Neutrophils # (Auto) 8.7 x10^3/uL Lymphocytes # (Auto) 0.8 x10^3/uL Monocytes # (Auto) 0.8 x10^3/uL Eosinophils # (Auto) 0.2 x10^3/uL Basophils # (Auto) 0.0 x10^3/uL Sodium Level 137 mmol/L Potassium Level 4.3 mmol/L Chloride Level 104 mmol/L Carbon Dioxide Level 29 mmol/L Anion Gap 4 Blood Urea Nitrogen 9 mg/dL Creatinine 0.5 mg/dL Estimated GFR (Cockcroft-Gault) 131.1 Glucose Level 113 mg/dL Calcium Level 8.5 mg/dL Phosphorus Level 3.8 mg/dL Magnesium Level 2.1 mg/dL Test 10/31/19 10:00 Vancomycin Level Trough 25.0 mcg/mL Vancomycin Last Dose Date 10-31-19 Vancomycin Last Dose Time 0230 Imaging: CXR 10/30 Impression: Improving right lower lobe atelectasis and/or infiltrate. C/A/P CT 10/29 IMPRESSION: There has been exchange or placement of multiple drainage tubes and a gastrojejunostomy tube. Both collections are smaller. No significant new abdominal fluid collection is seen. The jejunal component of the gastrojejunostomy tube appears to be looped in the proximal small bowel. PE: GEN: NAD HEART: tachycardic (mild) LUNGS: trach collar NEURO/PSYCH: sleeping, not awakened A/P: S/p pancreatic necrosectomy -- Continue support. Justicifation of Admission Dx: Justifications for Admission: Justification of Admission Dx: Yes CYNDEE FALCON Oct 31, 2019 12:59
[2019-10-31] MEDS: VANCOMYCIN PER PHARMACY MC PRN (13:00)
--- NOTE | 2019-10-31 13:04 | NUR ---
Pharmacy Vancomycin Dosing Note S:Consulted to monitor and dose vancomycin started 10/30/19. O:SCOTT CUELLAR is a 48 year old F with Abscess HCAP . Height: 5 feet, 8 inches Weight: 94.137772 kg Santa Body Weight: 63.90 Adjusted Body Weight: 75.98 Dosing Weight: Actual Other Antibiotics: CIPRO, MERREM, MICAFUGIN LABS: Last BUN: 9 Last Creatinine: 0.5 Creatinine Clearance: >100 mL/min Last WBC: 10.5 Last Procalcitonin: - Tmax (past 24 hours): 101.5 Microbiology: 10/29 BCX NGTD I/O: 2834/3110 Drug Levels: Last Trough level: 25.0 on 10/31/19 at 1000 Last dose given 10/31/19 at 0230 Vancomycin Dosing: Loading Dose: 2000 mg x1 Dosing Weight: Actual Target Trough: 15-20 A: Based on: SUPRATHERAPEUTIC TROUGH, P: 1. HOLD FURTHER DOSING OF Vancomycin 1500 mg IV q8h 2. Follow up Random level on 11/01/19 at 0100 3. Pharmacy will continue to monitor, follow and adjust therapy as needed. CHRISTIAN VALLEJO Katya, 10/31/19 [id number]
--- NOTE | 2019-10-31 14:31 | NUR ---
SS following up with discharge planning. SS reviewed pt chart and discussed with pt RN. Pt remains on trach collar. Pt on TPN, IV Micafungin, IV Meropenem, and IV Cipro. All drains, chest tube, and J tube remain. PT recommended LTACH. Pt is self pay. Per RN, pt aspirated over the weekend. SS will continue to follow for discharge planning.
[2019-10-31] MEDS: IV NORMAL SALINE 1000ML BAG 1,000 ML IV SCH (14:33)
[2019-10-31] MEDS: PROCHLORPERAZINE 10 MG/2 ML VIAL. IV PRN (20:17)
[2019-10-31] MEDS: ACETAMINOPHEN 650 MG SUPP.RECT. PR PRN (20:17)
[2019-10-31] MEDS ORDERED: TOTAL PARENTERAL NUTRITION IV SCH ×10 (22:00)
[2019-10-31] MEDS ORDERED: DEXTROSE 70% IV SCH ×10 (22:00)
[2019-10-31] MEDS ORDERED: AMINO ACID IV SCH ×10 (22:00)
[2019-10-31] MEDS ORDERED: [UNRECOGNIZED DRUG - OTHER] IV SCH ×10 (22:00)
[2019-11-01] VITALS (24 sets, daily range): BP systolic 105–149; BP diastolic 61–89
[2019-11-01] MEDS: IPRATRPIUM/ALBUTEROL 0.5/2.5MG 3 ML NEBU. NEB SCH ×9 (00:49→19:51)
[2019-11-01] MEDS: MEROPENEM 500 MG in IV NORMAL SALINE 50ML 50 ML IV SCH ×4 (00:50→17:06)
[2019-11-01] MEDS ORDERED: VANCOMYCIN RANDOM LEVEL. MC ONE (01:00)
[2019-11-01] MEDS: VANCOMYCIN PER PHARMACY MC PRN (02:46)
--- NOTE | 2019-11-01 02:48 | NUR ---
Pharmacy Vancomycin Dosing Note S: Consulted to monitor and dose vancomycin started 10/30/19. O: SCOTT CUELLAR is a 48 year old F with Abscess HCAP, . Other Antibiotics: CIPRO, MERREM, MICAFUGIN LABS: Last BUN: 9 Last Creatinine: 0.5 Creatinine Clearance: >100 mL/min Last WBC: 10.5 Last Procalcitonin: - Tmax (past 24 hours): 101.5 Microbiology: 10/29 BCX NGTD I/O: 4404/3110 Drug Levels: Last Trough level: 20.6 on 11/01/19 at 0050 Last dose given 10/31/19 at 0230 Vancomycin Dosing: Dosing Weight: Actual Target Trough: 15-20 A: Based on: Trough, Actual Wt and CrCl Held dosing till 11/01/19 1000 P: 1. 11/01/19 1000 Restarted & Decreased Vancomycin 1500 mg IV q12h 2. Follow up Trough level on 11/02/19 at 1000 3. Pharmacy will continue to monitor, follow and adjust therapy as needed. RAHEL TELLO RPH, 11/01/19 0248 Signed: 11/01/19 at 0250 by RAHEL TELLO RPH PHA
[2019-11-01] MEDS: INSULIN LISPRO 300 UNITS/3 ML VIAL. SQ SCH ×4 (06:00→18:00)
[2019-11-01] MEDS: ACETYLCYSTEINE 20% for RESP TX 600 MG/3 ML. NEB SCH ×2 (08:00→19:51)
--- NOTE | 2019-11-01 08:10 | PDOC ---
Infectious Disease Note Subjective Subjective Patient is awake on a ventilator through trach ROS ROS No nausea vomiting diarrhea or fever Vital Sign Vital Signs Vital Signs Date Time Temp Pulse Resp B/P (MAP) Pulse Ox O2 Delivery O2 Flow Rate FiO2 11/01/19 03:00 110 17 123/82 (96) 100 Ventilator 11/01/19 00:00 99.1 99.1 10/31/19 16:02 8.0 Physical Exam PHYSICAL EXAM GENERAL: Propped up in bed, awake, weak appearing HEENT: Pupils equal, oral cavity dry. NGT out, on vent NECK: Tracheostomy LUNGS: Diminished aeration bases, CT on left HEART: S1, S2, regular, tachy ABDOMEN: Sightly less distended, bowel sounds hypoactive, soft, goyal x 2, 3 KAYLIN drains, G-J tube and + wound vac : Lind in place EXTREMITIES: Generalized edema, no cyanosis. SCDs & Podus boots bilaterally, SKIN: warm touch. No signs of rash. NEURO: awake, mouthing some words, tracking LUE-PICC without signs of complications LUE art-line out, mottling about old art-line site is improving. RP palpable, cap refill brisk. Labs Lab Laboratory Tests Test 10/31/19 10:00 10/31/19 18:03 11/01/19 00:50 11/01/19 00:53 Vancomycin Level Trough 25.0 mcg/mL (10.0-20.0) Vancomycin Last Dose Date 10-31-19 Vancomycin Last Dose Time 0230 Glucose (Fingerstick) 110 mg/dL (70-99) 120 mg/dL (70-99) Random Vancomycin Level 20.6 mcg/mL Test 11/01/19 05:50 Glucose (Fingerstick) 123 mg/dL (70-99) Micro Objective Assessment Patient with prolonged hospitalization more than 3 months Multiple medical problems Multiple surgical procedures S/P Exp. 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 parapsilosis & PSAE (I-merrem/ceftazidime/AZT/cefepime)) Leucocytosis -trending upward Fever Acute gallstone pancreatitis with persistent necrosis - 07/27. CT A/P Increased ascites. Persistent evidence of necrotizing pancreatitis with fluid and phlegmon at the pancreas - 4/27. status post KAYLIN drain placement; C. parapsilosis. s/p drain 08/23 + yeast & high amylase; s/p additional drain on 08/25. Drains removed. -08/23. fluid devyn parapsilosis fluid, amylase high - 09/23 showed multiple pseudocysts, slight larger on the right. s/p drains x 3, 09/24. + PSAE (MDRO-R Cefepime, Zosyn ALEXANDRA < 64) and yeast, -09/24 s/p drain replacement x 3; fluid cult PSAE (MDRO), yeast; treated -10/29 CT A/P shows smaller fluid collections. Ascites s/p paracentesis 08/02 & 08/23. C. parapsilosis Cholelithiasis with thickening of the gallbladder wall. JUANA, Hyperkalemia, Metabolic acidosis off dialysis Acute hypoxic resp failure. trach/vent. sputum 09/30 + PSAE (I merrem) Pleural effusions s/p left thoracentesis, 08/29. no culture. s/p left chest tube, 10/02 no growth Hypocalcemia Prediabetes HTN Anemia s/p PRBCs Plan Plan of Care merrem and micafungin Add vanc per pharmacy protocal and cipro f/u BC /resp cultures Labs in am wound care /drain management as directed Contact isolation for CRE/MDRO D/w nursing Critically ill KIMMY JONES MD Nov 01, 2019 08:10
[2019-11-01 08:27] LABS: CALCIUM 8.4 mg/dL (8.5-10.1); CREATININE 0.5 mg/dL (0.6-1.0); GFR 131.1
[2019-11-01] MEDS: MICAFUNGIN 100 MG in IV DEXTROSE 5% 100ML 100 ML IV SCH (09:00)
[2019-11-01] MEDS: VANCOMYCIN 1.5 GM in IV NORMAL SALINE 500ML BAG 500 ML IV SCH ×2 (09:00→22:07)
[2019-11-01] MEDS: CIPROFLOXACIN 400MG PREMIX 200 ML IV SCH ×2 (09:00→20:36)
[2019-11-01] MEDS: ENOXAPARIN 40 MG/0.4 ML SYRINGE. SQ SCH (09:01)
[2019-11-01] MEDS: PANTOPRAZOLE IV PUSH 40 MG VIAL. IVP SCH (09:01)
[2019-11-01] MEDS: fentaNYL PF VIAL 100 MCG/2 ML VIAL IV PRN ×3 (09:02→20:37)
--- NOTE | 2019-11-01 09:08 | PDOC ---
PULMONARY PROGRESS NOTES Subjective Patient on trach shield, awake alert following command Vitals Vital Signs Date Time Temp Pulse Resp B/P (MAP) Pulse Ox O2 Delivery O2 Flow Rate FiO2 11/01/19 09:02 40 Tracheal Collar 8.0 11/01/19 03:00 110 123/82 (96) 100 11/01/19 00:00 99.1 99.1 ROS: No Nausea, No Chest Pain, No Increase Cough General: Alert HEENT: Other (trach site ok) Lungs: Crackles Cardiovascular: S1, S2 Abdomen: Soft, Non-tender, Other (multiple KAYLIN drains ) Neuro Exam: Alert Extremities: Other (+1 BLE edema) Skin: Warm Labs Laboratory Tests Test 10/30/19 12:38 10/30/19 17:58 10/31/19 00:21 10/31/19 05:35 Glucose (Fingerstick) 302 mg/dL (70-99) 106 mg/dL (70-99) 124 mg/dL (70-99) White Blood Count 10.5 x10^3/uL (4.0-11.0) Red Blood Count 2.48 x10^6/uL (3.50-5.40) Hemoglobin 7.4 g/dL (12.0-15.5) Hematocrit 21.7 % (36.0-47.0) Mean Corpuscular Volume 88 fL (79-100) Mean Corpuscular Hemoglobin 30 pg (25-35) Mean Corpuscular Hemoglobin Concent 34 g/dL (31-37) Red Cell Distribution Width 14.9 % (11.5-14.5) Platelet Count 543 x10^3/uL (140-400) Neutrophils (%) (Auto) 83 % (31-73) Lymphocytes (%) (Auto) 8 % (24-48) Monocytes (%) (Auto) 8 % (0-9) Eosinophils (%) (Auto) 2 % (0-3) Basophils (%) (Auto) 0 % (0-3) Neutrophils # (Auto) 8.7 x10^3/uL (1.8-7.7) Lymphocytes # (Auto) 0.8 x10^3/uL (1.0-4.8) Monocytes # (Auto) 0.8 x10^3/uL (0.0-1.1) Eosinophils # (Auto) 0.2 x10^3/uL (0.0-0.7) Basophils # (Auto) 0.0 x10^3/uL (0.0-0.2) Sodium Level 137 mmol/L (136-145) Potassium Level 4.3 mmol/L (3.5-5.1) Chloride Level 104 mmol/L (98-107) Carbon Dioxide Level 29 mmol/L (21-32) Anion Gap 4 (6-14) Blood Urea Nitrogen 9 mg/dL (7-20) Creatinine 0.5 mg/dL (0.6-1.0) Estimated GFR (Cockcroft-Gault) 131.1 Glucose Level 113 mg/dL (70-99) Calcium Level 8.5 mg/dL (8.5-10.1) Phosphorus Level 3.8 mg/dL (2.6-4.7) Magnesium Level 2.1 mg/dL (1.8-2.4) Test 10/31/19 05:37 10/31/19 10:00 10/31/19 18:03 11/01/19 00:50 Glucose (Fingerstick) 110 mg/dL (70-99) 110 mg/dL (70-99) Vancomycin Level Trough 25.0 mcg/mL (10.0-20.0) Vancomycin Last Dose Date 10-31-19 Vancomycin Last Dose Time 0230 Random Vancomycin Level 20.6 mcg/mL Test 11/01/19 00:53 11/01/19 05:40 11/01/19 05:50 Glucose (Fingerstick) 120 mg/dL (70-99) 123 mg/dL (70-99) Sodium Level 136 mmol/L (136-145) Potassium Level 4.0 mmol/L (3.5-5.1) Chloride Level 102 mmol/L (98-107) Carbon Dioxide Level 28 mmol/L (21-32) Anion Gap 6 (6-14) Blood Urea Nitrogen 9 mg/dL (7-20) Creatinine 0.5 mg/dL (0.6-1.0) Estimated GFR (Cockcroft-Gault) 131.1 Glucose Level 130 mg/dL (70-99) Calcium Level 8.4 mg/dL (8.5-10.1) Laboratory Tests Test 10/31/19 10:00 10/31/19 18:03 11/01/19 00:50 11/01/19 00:53 Vancomycin Level Trough 25.0 mcg/mL (10.0-20.0) Vancomycin Last Dose Date 10-31-19 Vancomycin Last Dose Time 0230 Glucose (Fingerstick) 110 mg/dL (70-99) 120 mg/dL (70-99) Random Vancomycin Level 20.6 mcg/mL Test 11/01/19 05:40 11/01/19 05:50 Sodium Level 136 mmol/L (136-145) Potassium Level 4.0 mmol/L (3.5-5.1) Chloride Level 102 mmol/L (98-107) Carbon Dioxide Level 28 mmol/L (21-32) Anion Gap 6 (-) Blood Urea Nitrogen 9 mg/dL (-) Creatinine 0.5 mg/dL (0.6-1.0) Estimated GFR (Cockcroft-Gault) 131.1 Glucose Level 130 mg/dL (70-99) Calcium Level 8.4 mg/dL (8.5-10.1) Glucose (Fingerstick) 123 mg/dL (70-99) Medications Active Scripts Medications Dose Route/Sig Max Daily Dose Days Date Category Bisoprolol Fumarate 5 Mg Tablet 10 Mg PO DAILY 07/04/[address] reviewed 10/30/19, Decreased left-sided effusion after catheter placement. The right-sided effusion has increased as has atelectasis. There has been exchange or placement of multiple drainage tubes and a gastrojejunostomy tube. Both collections are smaller. No significant new abdominal fluid collection is seen. The jejunal component of the gastrojejunostomy tube appears to be looped in the proximal small bowel. ct abdomen /pelvis 09/23 1. Removal of the percutaneous pigtail drainage catheters since the prior exam. Sequela of pancreatitis with extensive pseudocysts again demonstrated, the right-sided collections are slightly larger since the prior exam, the left-sided collections are stable. See above. 2. Moderate to large left pleural effusion with atelectasis and collapse of most of the left lower lobe, stable. Small right pleural effusion is stable. 3. Gallstone. ct chest 10/02 reviewed GRAM NEG COCCOBACILLI:MANY SQUAMOUS EPI CELL:RARE PMN (WBCs):FEW Unless otherwise specified, Testing Performed by: [address] [address] For Inquires, the Physician may contact the Microbiology department at [phone] RESPIRATORY CULTURE Final Final MANY GRAM NEGATIVE RODS on 10/03/19 at 1107 FINAL ID= [[email or web address]] MICRO CHARGES PSEUDOMONAS AERUGINOSA ANTIMICROBIAL SUSCEPTIBILITY Final Comment NEG ALEXANDRA 56 PSEUDOMONAS AERUGINOSA ANTIBIOTIC RESULT INTERPRETATION AMIKACIN <=16 S AZTREONAM <=4 S CEFTAZIDIME <=1 S CIPROFLOXACIN <=0.25 S CEFEPIME <=2 S CEFTAZIDIME/AVIBACTAM <=4 S GENTAMICIN <=2 S LEVOFLOXACIN <=0.5 S Impression . IMPRESSION: 1. Acute hypoxemic respiratory failure secondary to ARDS status post trach, developed anemia 09/24, blood drainage from RLQ abdomen drain site, and surrounding firmness / developed septic shock 09/24 from abdomen source, required levo / s/p 3 new drains 09/24 with brown color drainage, 2. Gallstone pancreatitis, now with ongoing bleeding from prior drain. Anemic. s/p Tx multiple units over several days 3. septic shock/sepsis, recurrent 09/24, source abdomen. new fever ? aspiration pneumonitis/pneumonia 4. Acute kidney injury-, Off HD--renal function decling. suspect JUANA on CKD due to hypotension , improved now 5. Acute gallstone pancreatitis. 6. Hypoalbuminemia. 7. Moderate persistent effusions, s/p left thora 08/29, reaccumulation of left effusion. O2 requirement not changed. 8. Fever- ,hypotension. suspect recurrent sepsis/ likely pancreatic source. Per ID, per surgery-- 9. Chronic anemia-- ongoing / s/p PRBC 10. Covid 19 testing negative 11. Moderate to large ascites-S/P paracentisis 12.S/P paracentisis with 4 liters removed on 08/03/19 13. S/P IR drain placement on 08/26/2019, removal, re inserted 09/24 14. Depression/Anxiety 15., Fever, per ID 16. Status post chest tube placement, not much drainage 10/17 S/P Exploratory laparotomy, lysis of adhesions, subtotal cholecystectomy with cholangiogram, gastrojejunostomy tube placement, pancreatic necrosectomy leukocytosis- improving Plan . Cathflo for chest tube, I think it is clogged Continue trach shield Up to chair Follow culture Follow surgery input DVT GI prophylaxis ABX per ID merrem and micafungin Added vanc and cipro per id f/u BC /resp cultures Continue TPN for nutrition support DVT/GI PPX D/W RN and RT, HARMEET BEE MD Nov 01, 2019 09:08
--- NOTE | 2019-11-01 09:50 | PDOC ---
SURGICAL PROGRESS NOTE Subjective resting Vital Signs Vital Signs Date Time Temp Pulse Resp B/P (MAP) Pulse Ox O2 Delivery O2 Flow Rate FiO2 11/01/19 09:02 40 Tracheal Collar 8.0 11/01/19 03:00 110 123/82 (96) 100 11/01/19 00:00 99.1 99.1 I&O Intake and Output 11/01/19 07:00 Intake Total 2053 ml Output Total 2332 ml Balance -279 ml IV Total 2053 ml Output Urine Total 1040 ml Drainage Total 1292 ml PATIENT HAS A ROSARIO: Yes General: Cooperative, No acute distress Abdomen: Soft, Other (mulitple drains ) Labs Laboratory Tests Test 10/30/19 12:38 10/30/19 17:58 10/31/19 00:21 10/31/19 05:35 Glucose (Fingerstick) 302 mg/dL (70-99) 106 mg/dL (70-99) 124 mg/dL (70-99) White Blood Count 10.5 x10^3/uL (4.0-11.0) Red Blood Count 2.48 x10^6/uL (3.50-5.40) Hemoglobin 7.4 g/dL (12.0-15.5) Hematocrit 21.7 % (36.0-47.0) Mean Corpuscular Volume 88 fL (79-100) Mean Corpuscular Hemoglobin 30 pg (25-35) Mean Corpuscular Hemoglobin Concent 34 g/dL (31-37) Red Cell Distribution Width 14.9 % (11.5-14.5) Platelet Count 543 x10^3/uL (140-400) Neutrophils (%) (Auto) 83 % (31-73) Lymphocytes (%) (Auto) 8 % (24-48) Monocytes (%) (Auto) 8 % (0-9) Eosinophils (%) (Auto) 2 % (0-3) Basophils (%) (Auto) 0 % (0-3) Neutrophils # (Auto) 8.7 x10^3/uL (1.8-7.7) Lymphocytes # (Auto) 0.8 x10^3/uL (1.0-4.8) Monocytes # (Auto) 0.8 x10^3/uL (0.0-1.1) Eosinophils # (Auto) 0.2 x10^3/uL (0.0-0.7) Basophils # (Auto) 0.0 x10^3/uL (0.0-0.2) Sodium Level 137 mmol/L (136-145) Potassium Level 4.3 mmol/L (3.5-5.1) Chloride Level 104 mmol/L (98-107) Carbon Dioxide Level 29 mmol/L (21-32) Anion Gap 4 (6-14) Blood Urea Nitrogen 9 mg/dL (7-20) Creatinine 0.5 mg/dL (0.6-1.0) Estimated GFR (Cockcroft-Gault) 131.1 Glucose Level 113 mg/dL (70-99) Calcium Level 8.5 mg/dL (8.5-10.1) Phosphorus Level 3.8 mg/dL (2.6-4.7) Magnesium Level 2.1 mg/dL (1.8-2.4) Test 10/31/19 05:37 10/31/19 10:00 10/31/19 18:03 11/01/19 00:50 Glucose (Fingerstick) 110 mg/dL (70-99) 110 mg/dL (70-99) Vancomycin Level Trough 25.0 mcg/mL (10.0-20.0) Vancomycin Last Dose Date 10-31-19 Vancomycin Last Dose Time 0230 Random Vancomycin Level 20.6 mcg/mL Test 11/01/19 00:53 11/01/19 05:40 11/01/19 05:50 Glucose (Fingerstick) 120 mg/dL (70-99) 123 mg/dL (70-99) Sodium Level 136 mmol/L (136-145) Potassium Level 4.0 mmol/L (3.5-5.1) Chloride Level 102 mmol/L (98-107) Carbon Dioxide Level 28 mmol/L (21-32) Anion Gap 6 (6-14) Blood Urea Nitrogen 9 mg/dL (7-20) Creatinine 0.5 mg/dL (0.6-1.0) Estimated GFR (Cockcroft-Gault) 131.1 Glucose Level 130 mg/dL (70-99) Calcium Level 8.4 mg/dL (8.5-10.1) Laboratory Tests Test 10/31/19 10:00 10/31/19 18:03 11/01/19 00:50 11/01/19 00:53 Vancomycin Level Trough 25.0 mcg/mL (10.0-20.0) Vancomycin Last Dose Date 10-31-19 Vancomycin Last Dose Time 023 Glucose (Fingerstick) 110 mg/dL (70-99) 120 mg/dL (70-99) Random Vancomycin Level 20.6 mcg/mL Test 11/01/19 05:40 11/01/19 05:50 Sodium Level 136 mmol/L (136-145) Potassium Level 4.0 mmol/L (3.5-5.1) Chloride Level 102 mmol/L (98-107) Carbon Dioxide Level 28 mmol/L (21-32) Anion Gap 6 (6-14) Blood Urea Nitrogen 9 mg/dL (7-20) Creatinine 0.5 mg/dL (0.6-1.0) Estimated GFR (Cockcroft-Gault) 131.1 Glucose Level 130 mg/dL (70-99) Calcium Level 8.4 mg/dL (8.5-10.1) Glucose (Fingerstick) 123 mg/dL (70-99) Problem List Problems Medical Problems: (1) Acute pancreatitis Status: Acute (2) Cholelithiasis Status: Acute Assessment/Plan continue supportive care Justicifation of Admission Dx: Justifications for Admission: Justification of Admission Dx: Yes 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 [employer]EDING MANAGER Nov 01, 2019 09:50
[2019-11-01] MEDS: TPN PER PHARMACY MC PRN (10:47)
--- NOTE | 2019-11-01 10:49 | NUR ---
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, 8 inches Weight: 94.608016 kg Current diet: NPO LABS: Sodium: 136 Potassium: 4.0 Chloride: 102 Calcium: 8.4 Corrected Calcium: 10.72 Magnesium: 2.1 CO2: 28 SCr: 0.5 Glucose: 120-130 Albumin: 1.1 AST: 25 ALT: 37 TPN FORMULA: TPN TYPE: Central Continuous AMINO ACIDS: 85 gm DEXTROSE: 250 gm LIPIDS: 20 gm SODIUM CHLORIDE: 90 mEq SODIUM ACETATE: - mEq SODIUM PHOSPHATE: - mmol POTASSIUM CHLORIDE: 30 mEq POTASSIUM ACETATE: 30 mEq POTASSIUM PHOSPHATE: - mmol MAGNESIUM: 15 mEq CALCIUM: - mEq INSULIN: 15 units MULTIPLE VITAMIN: 10 ml TRACE ELEMENTS: 1 ml ml(s) TPN PLAN: Tube feed not tolerated, on hold indefinitely. Lytes stable, no changes. No labs due to stability. R: Continue TPN ABOVE. Will monitor electrolytes, glucose, and tolerance to TPN. CHRISTIAN VALLEJO [facility], 11/01/19 [id number]
[2019-11-01] MEDS ORDERED: ALTEPLASE 1MG SYRINGE. INT CAT ONE (11:00)
--- NOTE | 2019-11-01 11:08 | PDOC ---
Objective: Objective: D/w nurse - getting ready to change dressings, plans to work with therapy later. Vital Signs: Vital Signs Date Time Temp Pulse Resp B/P (MAP) Pulse Ox O2 Delivery O2 Flow Rate FiO2 11/01/19 10:00 130 35 119/70 (86) 99 Tracheal Collar 8.0 11/01/19 08:00 99.2 99.2 Labs: Laboratory Tests Test 10/31/19 18:03 11/01/19 00:53 11/01/19 05:50 Glucose (Fingerstick) 110 mg/dL (70-99) 120 mg/dL (70-99) 123 mg/dL (70-99) PE: GEN: NAD - waves hello, gives me a thumbs up LUNGS: trach collar HEART: tachycardic ABD: many drains NEURO/PSYCH: A & O 3 A/P: S/p pancreatic necrosectomy -- Continue support. Justicifation of Admission Dx: Justifications for Admission: Justification of Admission Dx: Yes CYNDEE FALCON Nov 01, 2019 11:07
--- NOTE | 2019-11-01 12:36 | NUR ---
SS following up with discharge planning. SS reviewed pt chart and discussed with pt RN. Pt working with PT. Pt max assist times two and dependent. Pt white count improving. Pt on TPN, IV Cipro, IV Micafungin, and IV Meropenem. Chest tube and J tube remain. All drains remain at this time. Pt on trach collar. SS will continue to follow for discharge planning.
[2019-11-01] MEDS: IV NORMAL SALINE 1000ML BAG 1,000 ML IV SCH (14:33)
--- NOTE | 2019-11-01 14:40 | PDOC ---
PROGRESS NOTES Chief Complaint Chief Complaint A/P Acute hypoxic Respiratory failure required mechanical ventilation Tracheostomy bilateral pleural effusions/pulm edema s/p Throacentesis on 10/03/2019 Severe Acute gallstone pancreatitis (not a surgical candidate at this time) with necrosis Acute kidney failure now requiring dialysis Gallstones (Calculus of gallbladder with acute cholecystitis without obstruction) HTN Intractable pain Intractable nausea Covid 19 negative. Acute on chronic anemia EEG: No seizure activityFever - better currently - intermittent could be from underlying pancreatitis blood cults 08/21 - neg so far ? Ileus with vomiting Abd distention - U/S and CT reviewed s/p 0.4 L of opaque, debris-containing ascites was removed 08/23 Acute pancreatitis with persistent necrosis Gallstone pancreatitis with necrosis. -CT A/P 09/23 showed multiple pseudocysts, slight larger on the right. s/p drains x 3, 09/24. + PSAE (MDRO-R Cefepime, Zosyn ALEXANDRA < 64) and yeast, -s/p drain 08/14. C. parapsilosis. s/p drain 08/23 + yeast & high amylase; s/p additional drain on 08/25. Drains removed. Ascites s/p paracentesis 08/02 & 08/23. C. parapsilosis JUANA. off HD. A large fluid collection in the pancreatic bed has slightly decreased in size, described below, the pancreas itself is difficult to visualize, which could be due to necrosis or obscuration of pancreatic parenchyma from the surrounding fluid collection.10/02 - 08/14 status post KAYLIN drain placement + C paropsilosis. s/p additional drains 08/25 Anemia - S/p PRBCs Cholelithiasis with thickening of the gallbladder wall. Leucocytosis improving JUANA, hyperkalemia, Metabolic acidosis off dialysis hypocalcemia Prediabetes HTN s/p trach ESRD on HD Hyperglycemia severe protein-caloric malnutrition Moderate to large left pleural effusion with atelectasis and collapse of most of the left lower lobe, stable Dispo - ICU, critically ill Poor prognosis History of Present Illness History of Present Illness 09/25: IR placed drain on 09/24. 4u PRBC after Hb drop. Hb 8.8 today. Off Levophed this morning. T-max 100.3. Much more lethargic today. CXR with left sided diffuse infiltrates. 6/9: Tachycardic overnight into the 140s. NGT clamped. On BIPAP currently. Drains with serosanguinous discharge. WBC 8, Tmax 99.6F. 09/27: Seen on trach shield in ICU. Hypertensive and tachycardic. Labs stable. blood stained drainage from drains. Afebrile. 09/28: Seen on trach shield in ICU. She is a bit confused, drowsy, but when sitting up is conversational and confusion somewhat clears. She is asking for more pain medication. Stable drains, still very tachy.Na 147 09/29: Patient vomited overnight. Aspirated. Tried to pull her trach out, she was told she would without her trach, she said "I know, I just want to go home". Hb 7.6. Afebrile, still very tachycardic. 1055ml out of right sided KAYLIN drain 09/30: Overnight hypoxic, on BIPAP. CXR with left sided white out lung. Significant mucous plug suctioned by RT with improvement in her ABG after 2 hours this morning. Not really active, tired, lethargic. 890ml out of drains past 24 hours. On vent. D/w daughter bedside. 10/16: To OR for pancreatic necrosectomy, cholecystectomy, lysis of adhesions, gastrostomy tube placement 10/24, awake on vent, weaning sedation, cont other, still with marked drainage 10/25: Still on fentanyl. WBC 15.4, Hb 8.7 Metabolic panel WNL except calcium 10.2 with albumin 1.1. She awakens off sedation, still connected to vent currently. 10/26: FiO2 40% 5 PEEP, WBC 13.4, Hb 7.9, platelets 551. Still on fentanyl, she is working with PT. 10/27: Off vent during the day. Working with PT. Labs stable. Hb to 8.5. Working with PT/OT. She has been suctioning quite a bit of respiratory secretions as well as loose bowels. C diff pending. 10/28: Afebrile, still with loose bowels overnight C. difficile negative. WBC up to 16 coughing up thick yellow sputum able to cough out her trach when taken off trach shield she still has O2 saturations 97%. Gastrostomy tube to gravity with fairly significant drainage that appears to be tube feeds and gastric secretions. She notes pain is better controlled with the fentanyl patch. Blood pressure elevated heart rate elevated is on metoprolol. 10/27: Overnight febrile 101.9F, coughing up more thick yellow and green secretions. FiO2 33% with 94% O2 saturations. Had x3 BM yesterday. Cultures sent for sputum, fungal and blood cultures prognosis still poor, but improving slowly Cont ICU Vitals Vitals Vital Signs Date Time Temp Pulse Resp B/P (MAP) Pulse Ox O2 Delivery O2 Flow Rate FiO2 11/01/19 13:50 35 99 Tracheal Collar 8.0 11/01/19 13:00 133 131/89 (103) 11/01/19 12:00 98.9 98.9 Physical Exam Physical Exam GENERAL: Propped up in bed, awake, weak appearing HEENT: Pupils equal, oral cavity dry. NGT out, on vent NECK: Tracheostomy LUNGS: Diminished aeration bases, CT on left HEART: S1, S2, regular, tachy ABDOMEN: Sightly less distended, bowel sounds hypoactive, soft, goyal x 2, 3 KAYLIN drains, G-J tube and + wound vac : Lind in place EXTREMITIES: Generalized edema, no cyanosis. SCDs & Podus boots bilaterally, SKIN: warm touch. No signs of rash. NEURO: awake, mouthing some words, tracking LUE-PICC without signs of complications LUE art-line out, mottling about old art-line site is improving. RP palpable, cap refill brisk. General: Cooperative, No acute distress Heart: Regular rate (SR/ST), Other (distant heart sounds) Lungs: Crackles Abdomen: Soft, Other (mulitple drains ) Extremities: Other (Diffuse edema) Skin: No rashes, No significant lesion Labs LABS Laboratory Tests Test 10/31/19 18:03 11/01/19 00:50 11/01/19 00:53 11/01/19 05:40 Glucose (Fingerstick) 110 mg/dL (70-99) 120 mg/dL (70-99) Random Vancomycin Level 20.6 mcg/mL Sodium Level 136 mmol/L (136-145) Potassium Level 4.0 mmol/L (3.5-5.1) Chloride Level 102 mmol/L (98-107) Carbon Dioxide Level 28 mmol/L (21-32) Anion Gap 6 (6-14) Blood Urea Nitrogen 9 mg/dL (7-20) Creatinine 0.5 mg/dL (0.6-1.0) Estimated GFR (Cockcroft-Gault) 131.1 Glucose Level 130 mg/dL (70-99) Calcium Level 8.4 mg/dL (8.5-10.1) Test 11/01/19 05:50 11/01/19 12:34 Glucose (Fingerstick) 123 mg/dL (70-99) 148 mg/dL (70-99) Assessment and Plan Assessmemt and Plan Problems Medical Problems: (1) Acute pancreatitis Status: Acute (2) Cholelithiasis Status: Acute Comment Review of Relevant I have reviewed the following items kolby (where applicable) has been applied. Labs Laboratory Tests Test 10/30/19 17:58 10/31/19 00:21 10/31/19 05:35 10/31/19 05:37 Glucose (Fingerstick) 106 mg/dL (70-99) 124 mg/dL (70-99) 110 mg/dL (70-99) White Blood Count 10.5 x10^3/uL (4.0-11.0) Red Blood Count 2.48 x10^6/uL (3.50-5.40) Hemoglobin 7.4 g/dL (12.0-15.5) Hematocrit 21.7 % (36.0-47.0) Mean Corpuscular Volume 88 fL (79-100) Mean Corpuscular Hemoglobin 30 pg (25-35) Mean Corpuscular Hemoglobin Concent 34 g/dL (31-37) Red Cell Distribution Width 14.9 % (11.5-14.5) Platelet Count 543 x10^3/uL (140-400) Neutrophils (%) (Auto) 83 % (31-73) Lymphocytes (%) (Auto) 8 % (24-48) Monocytes (%) (Auto) 8 % (0-9) Eosinophils (%) (Auto) 2 % (0-3) Basophils (%) (Auto) 0 % (0-3) Neutrophils # (Auto) 8.7 x10^3/uL (1.8-7.7) Lymphocytes # (Auto) 0.8 x10^3/uL (1.0-4.8) Monocytes # (Auto) 0.8 x10^3/uL (0.0-1.1) Eosinophils # (Auto) 0.2 x10^3/uL (0.0-0.7) Basophils # (Auto) 0.0 x10^3/uL (0.0-0.2) Sodium Level 137 mmol/L (136-145) Potassium Level 4.3 mmol/L (3.5-5.1) Chloride Level 104 mmol/L (98-107) Carbon Dioxide Level 29 mmol/L (21-32) Anion Gap 4 (6-14) Blood Urea Nitrogen 9 mg/dL (7-20) Creatinine 0.5 mg/dL (0.6-1.0) Estimated GFR (Cockcroft-Gault) 131.1 Glucose Level 113 mg/dL (70-99) Calcium Level 8.5 mg/dL (8.5-10.1) Phosphorus Level 3.8 mg/dL (2.6-4.7) Magnesium Level 2.1 mg/dL (1.8-2.4) Test 10/31/19 10:00 10/31/19 18:03 11/01/19 00:50 11/01/19 00:53 Vancomycin Level Trough 25.0 mcg/mL (10.0-20.0) Vancomycin Last Dose Date 10-31-19 Vancomycin Last Dose Time 0230 Glucose (Fingerstick) 110 mg/dL (70-99) 120 mg/dL (70-99) Random Vancomycin Level 20.6 mcg/mL Test 11/01/19 05:40 11/01/19 05:50 11/01/19 12:34 Sodium Level 136 mmol/L (136-145) Potassium Level 4.0 mmol/L (3.5-5.1) Chloride Level 102 mmol/L (98-107) Carbon Dioxide Level 28 mmol/L (21-32) Anion Gap 6 (6-14) Blood Urea Nitrogen 9 mg/dL (7-20) Creatinine 0.5 mg/dL (0.6-1.0) Estimated GFR (Cockcroft-Gault) 131.1 Glucose Level 130 mg/dL (70-99) Calcium Level 8.4 mg/dL (8.5-10.1) Glucose (Fingerstick) 123 mg/dL (70-99) 148 mg/dL (70-99) Laboratory Tests Test 10/31/19 18:03 11/01/19 00:50 11/01/19 00:53 11/01/19 05:40 Glucose (Fingerstick) 110 mg/dL (70-99) 120 mg/dL (70-99) Random Vancomycin Level 20.6 mcg/mL Sodium Level 136 mmol/L (136-145) Potassium Level 4.0 mmol/L (3.5-5.1) Chloride Level 102 mmol/L (98-107) Carbon Dioxide Level 28 mmol/L (21-32) Anion Gap 6 (6-14) Blood Urea Nitrogen 9 mg/dL (-20) Creatinine 0.5 mg/dL (0.6-1.0) Estimated GFR (Cockcroft-Gault) 131.1 Glucose Level 130 mg/dL (70-99) Calcium Level 8.4 mg/dL (8.5-10.1) Test 11/01/19 05:50 11/01/19 12:34 Glucose (Fingerstick) 123 mg/dL (70-99) 148 mg/dL (70-99) Microbiology 10/30/19 Gram Stain Evaluation - Final, Resulted 10/30/19 Respiratory Culture - Preliminary, Resulted 10/30/19 Blood Culture - Preliminary, Resulted NO GROWTH AFTER 2 DAYS 10/18/19 Gram Stain - Final, Complete 10/18/19 Aerobic and Anaerobic Culture - Final, Complete 10/18/19 Antimicrobic Susceptibility - Final, Complete 10/03/19 Gram Stain - Final, Complete 10/03/19 Aerobic and Anaerobic Culture - Final, Complete 09/25/19 Urine Culture - Final, Complete 09/17/19 Gram Stain - Final, Complete 09/17/19 Aerobic Culture - Final, Complete Medications Current Medications Sodium Chloride 1,000 ml @ 1,000 mls/hr Q1H IV Last administered on 07/04/19at 03:00; Start 07/04/19 at 03:00; Stop 07/04/19 at 03:59; Status DC Ondansetron HCl (Zofran) 4 mg 1X ONCE IVP Last administered on 07/04/19at 03:27; Start 07/04/19 at 03:00; Stop 07/04/19 at 03:01; Status DC Morphine Sulfate (Morphine Sulfate) 4 mg 1X ONCE IV ; Start 07/04/19 at 03:00; Stop 07/04/19 at 03:01; Status Cancel Ketorolac Tromethamine (Toradol 30mg Vial) 30 mg 1X ONCE IV Last administered on 07/04/19at 02:54; Start 07/04/19 at 03:00; Stop 07/04/19 at 03:01; Status DC Fentanyl Citrate (Fentanyl 2ml Vial) 25 mcg 1X ONCE IVP Last administered on 07/04/19at 03:23; Start 07/04/19 at 03:30; Stop 07/04/19 at 03:31; Status DC Fentanyl Citrate (Fentanyl 2ml Vial) 100 mcg STK-MED ONCE .ROUTE ; Start 07/04/19 at 03:18; Stop 07/04/19 at 03:18; Status DC Iohexol (Omnipaque 350 Mg/ml) 90 ml 1X ONCE IV Last administered on 07/04/19at 03:25; Start 07/04/19 at 03:30; Stop 07/04/19 at 03:31; Status DC Info (CONTRAST GIVEN -- Rx MONITORING) 1 each PRN DAILY PRN MC SEE COMMENTS; Start 07/04/19 at 03:30; Stop 07/06/19 at 03:29; Status DC Hydromorphone HCl (Dilaudid) 0.5 mg 1X ONCE IV Last administered on 07/04/19at 03:55; Start 07/04/19 at 04:30; Stop 07/04/19 at 04:32; Status DC Ondansetron HCl (Zofran) 4 mg PRN Q8HRS PRN IV NAUSEA/VOMITING 1ST CHOICE; Start 07/04/19 at 05:00; Stop 07/04/19 at 09:27; Status DC Morphine Sulfate (Morphine Sulfate) 2 mg PRN Q2HR PRN IV SEVERE PAIN 7-10 Last administered on 07/05/19at 12:26; Start 07/04/19 at 05:00; Stop 07/05/19 at 14:15; Status DC Sodium Chloride 1,000 ml @ 125 mls/hr Q8H IV Last administered on 07/04/19at 20:56; Start 07/04/19 at 05:00; Stop 07/05/19 at 04:59; Status DC Hydromorphone HCl (Dilaudid) 0.5 mg PRN Q3HRS PRN IV SEVERE PAIN 7-10 Last administered on 07/05/19at 10:06; Start 07/04/19 at 05:00; Stop 07/05/19 at 12:01 ; Status DC Piperacillin Sod/ Tazobactam Sod 4.5 gm/Sodium Chloride 100 ml @ 200 mls/hr 1X ONCE IV Last administered on 07/04/19at 05:44; Start 07/04/19 at 06:00; Stop 07/04/19 at 06:29; Status DC Ondansetron HCl (Zofran) 4 mg PRN Q4HRS PRN IV NAUSEA/VOMITING 1ST CHOICE Last administered on 10/31/19at 17:18; Start 07/04/19 at 09:30 Insulin Human Lispro (HumaLOG) 0-9 UNITS Q6HRS SQ Last administered on 10/30/19at 12:43; Start 07/04/19 at 09:30 Dextrose (Dextrose 50%-Water Syringe) 12.5 gm PRN Q15MIN PRN IV SEE COMMENTS; Start 07/04/19 at 09:30 Pantoprazole Sodium (PROTONIX VIAL for IV PUSH) 40 mg DAILYAC IVP Last administered on 11/01/19at 09:01; Start 07/04/19 at 11:30 Prochlorperazine Edisylate (Compazine) 10 mg PRN Q6HRS PRN IV NAUSEA/VOMITING, 2nd CHOICE Last administered on 10/31/19at 20:17; Start 07/04/19 at 17:45 Atenolol (Tenormin) 100 mg DAILY PO ; Start 07/05/19 at 09:00; Stop 07/04/19 at 20:08; Status DC Metoprolol Tartrate (Lopressor Vial) 2.5 mg Q6HRS IVP Last administered on 07/05/19at 05:51; Start 07/04/19 at 20:15; Stop 07/05/19 at 10:02; Status DC Metoprolol Tartrate (Lopressor Vial) 5 mg Q6HRS IVP Last administered on 07/14/19at 00:12; Start 07/05/19 at 10:15; Stop 07/16/19 at 08:48; Status DC Hydromorphone HCl (Dilaudid) 1 mg PRN Q3HRS PRN IV SEVERE PAIN 7-10 Last administered on 07/11/19at 05:13; Start 07/05/19 at 12:00; Stop 07/19/19 at 00:25; Status DC Lidocaine HCl (Buffered Lidocaine 1%) 3 ml STK-MED ONCE .ROUTE ; Start 07/05/19 at 12:55; Stop 07/05/19 at 12:56; Status DC Albumin Human 500 ml @ 125 mls/hr 1X ONCE IV Last administered on 07/05/19at 14:33; Start 07/05/19 at 14:30; Stop 07/05/19 at 18:32; Status DC Norepinephrine Bitartrate 8 mg/ Dextrose 258 ml @ 17.299 mls/ hr CONT PRN IV PER PROTOCOL Last administered on 08/02/19at 12:48; Start 07/05/19 at 15:30; Stop 08/05/19 at 09:19; Status DC Sodium Chloride 1,000 ml @ 125 mls/hr Q8H IV Last administered on 07/05/19at 21:04; Start 07/05/19 at 16:00; Stop 07/06/19 at 02:42; Status DC Albumin Human 500 ml @ 125 mls/hr PRN BID PRN IV After every 2L NSS & BP < 90mm Last administered on 10/18/19at 16:06; Start 07/05/19 at 16:00; Stop 10/21/19 at 09:30; Status DC Iohexol (Omnipaque 300 Mg/ml) 60 ml 1X ONCE IV Last administered on 07/05/19at 17:20; Start 07/05/19 at 17:00; Stop 07/05/19 at 17:01; Status DC Info (CONTRAST GIVEN -- Rx MONITORING) 1 each PRN DAILY PRN MC SEE COMMENTS; Start 07/05/19 at 17:00; Stop 07/07/19 at 16:59; Status DC Meropenem 1 gm/ Sodium Chloride 100 ml @ 200 mls/hr Q8HRS IV Last administered on 07/06/19at 05:45; Start 07/05/19 at 20:00; Stop 07/06/19 at 08:48; Status DC Furosemide (Lasix) 40 mg 1X ONCE IVP Last administered on 07/05/19at 22:12; Start 07/05/19 at 22:30; Stop 07/05/19 at 22:31; Status DC Calcium Chloride 1000 mg/Sodium Chloride 110 ml @ 220 mls/hr 1X ONCE IV Last administered on 07/05/19at 22:11; Start 07/05/19 at 22:30; Stop 07/05/19 at 22:59; Status DC Albuterol Sulfate (Ventolin Neb Soln) 2.5 mg 1X ONCE NEB Last administered on 07/06/19at 00:56; Start 07/05/19 at 22:30; Stop 07/05/19 at 22:31; Status DC Insulin Human Regular (HumuLIN R VIAL) 5 unit 1X ONCE IV Last administered on 07/05/19at 22:14; Start 07/05/19 at 22:30; Stop 07/05/19 at 22:31; Status DC Magnesium Sulfate 50 ml @ 25 mls/hr 1X ONCE IV Last administered on 07/06/19at 02:57; Start 07/06/19 at 03:00; Stop 07/06/19 at 04:59; Status DC Calcium Gluconate 1000 mg/Sodium Chloride 110 ml @ 220 mls/hr 1X ONCE IV Last administered on 07/06/19at 02:46; Start 07/06/19 at 03:00; Stop 07/06/19 at 03:29; Status DC Sodium Chloride 1,000 ml @ 200 mls/hr Q5H IV Last administered on 07/06/19at 02:46; Start 07/06/19 at 03:00; Stop 07/06/19 at 10:21; Status DC Calcium Gluconate 1000 mg/Sodium Chloride 110 ml @ 220 mls/hr 1X ONCE IV Last administered on 07/06/19at 03:21; Start 07/06/19 at 03:30; Stop 07/06/19 at 03:59; Status DC Sodium Bicarbonate 50 meq/Sodium Chloride 1,050 ml @ 75 mls/hr Q14H IV Last administered on 07/10/19at 21:10; Start 07/06/19 at 07:30; Stop 07/11/19 at 10:28; Status DC Calcium Gluconate 2000 mg/Sodium Chloride 120 ml @ 220 mls/hr 1X ONCE IV Last administered on 07/06/19at 09:05; Start 07/06/19 at 07:30; Stop 07/06/19 at 08:02; Status DC Lidocaine HCl (Xylocaine-Mpf 1% 2ml Vial) 2 ml STK-MED ONCE .ROUTE ; Start 07/06/19 at 08:47; Stop 07/06/19 at 08:47; Status DC Meropenem 500 mg/ Sodium Chloride 50 ml @ 100 mls/hr Q12HR IV Last administered on 07/11/19at 21:01; Start 07/06/19 at 18:00; Stop 07/12/19 at 07:58; Status DC Lidocaine HCl (Buffered Lidocaine 1%) 3 ml STK-MED ONCE .ROUTE ; Start 07/06/19 at 09:46; Stop 07/06/19 at 09:46; Status DC Lidocaine HCl (Buffered Lidocaine 1%) 6 ml 1X ONCE INJ Last administered on 07/06/19at 10:26; Start 07/06/19 at 10:15; Stop 07/06/19 at 10:16; Status DC Info (Tpn Per Pharmacy) 1 each PRN DAILY PRN MC SEE COMMENTS Last administered on 11/01/19at 10:47; Start 07/06/19 at 12:00 Sodium Chloride 1,000 ml @ 1,000 mls/hr Q1H PRN IV hypotension; Start 07/06/19 at 12:07; Stop 07/06/19 at 18:06; Status DC Diphenhydramine HCl (Benadryl) 25 mg 1X PRN PRN IV ITCHING; Start 07/06/19 at 12:15; Stop 07/07/19 at 12:14; Status DC Diphenhydramine HCl (Benadryl) 25 mg 1X PRN PRN IV ITCHING; Start 07/06/19 at 12:15; Stop 07/07/19 at 12:14; Status DC Sodium Chloride 1,000 ml @ 400 mls/hr Q2H30M PRN IV PATENCY; Start 07/06/19 at 12:07; Stop 07/07/19 at 00:06; Status DC Info (PHARMACY MONITORING -- do not chart) 1 each PRN DAILY PRN MC SEE COM MENTS; Start 07/06/19 at 12:15; Stop 07/08/19 at 08:13; Status DC Sodium Chloride 90 meq/Calcium Gluconate 10 meq/ Multivitamins 10 ml/Chromium/ Copper/Manganese/ Seleni/Zn 1 ml/ Total Parenteral Nutrition/Amino Acids/Dextrose/ Fat Emulsion Intravenous 55.005 ml @ 2.292 mls/hr TPN CONT IV ; Start 07/06/19 at 22:00; Stop 07/06/19 at 12:33; Status DC Info (Tpn Per Pharmacy) 1 each PRN DAILY PRN MC SEE COMMENTS; Start 07/06/19 at 12:30; Status UNV Sodium Chloride 90 meq/Calcium Gluconate 10 meq/ Multivitamins 10 ml/Chromium/ Copper/Manganese/ Seleni/Zn 0.5 ml/ Total Parenteral Nutrition/Amino Acids/Dextrose/ Fat Emulsion Intravenous 1,512 ml @ 63 mls/hr TPN CONT IV Last administered on 07/06/19at 22:06; Start 07/06/19 at 22:00; Stop 07/07/19 at 21:59; Status DC Calcium Carbonate/ Glycine (Tums) 500 mg PRN AFTMEALHC PRN PO INDIGESTION; Start 07/06/19 at 17:45; Stop 08/31/19 at 10:25; Status DC Calcium Gluconate (Calcium Gluconate) 2,000 mg 1X ONCE IVP Last administered on 07/07/19at 02:19; Start 07/07/19 at 02:15; Stop 07/07/19 at 02:16; Status DC Calcium Chloride 3000 mg/Sodium Chloride 1,030 ml @ 50 mls/hr [id number] IV Last administered on 07/09/19at 02:17; Start 07/07/19 at 08:00; Stop 07/09/19 at 15:23; Status DC Lorazepam (Ativan Inj) 1 mg PRN Q4HRS PRN IVP ANXIETY / AGITATION, 2nd choic Last administered on 08/05/19at 03:51; Start 07/07/19 at 09:00; Stop 08/05/19 at 09:19; Status DC Sodium Chloride 1,000 ml @ 1,000 mls/hr Q1H PRN IV hypotension; Start 07/07/19 at 08:56; Stop 07/07/19 at 14:55; Status DC Albumin Human 200 ml @ 200 mls/hr 1X PRN PRN IV Hypotension; Start 07/07/19 at 09:00; Stop 07/07/19 at 14:59; Status DC Diphenhydramine HCl (Benadryl) 25 mg 1X PRN PRN IV ITCHING; Start 07/07/19 at 09:00; Stop 07/08/19 at 08:59; Status DC Diphenhydramine HCl (Benadryl) 25 mg 1X PRN PRN IV ITCHING; Start 07/07/19 at 09:00; Stop 07/08/19 at 08:59; Status DC Sodium Chloride 1,000 ml @ 400 mls/hr Q2H30M PRN IV PATENCY; Start 07/07/19 at 08:56; Stop 07/07/19 at 20:55; Status DC Info (PHARMACY MONITORING -- do not chart) 1 each PRN DAILY PRN MC SEE COMMENTS; Start 07/07/19 at 09:00; Status UNV Info (PHARMACY MONITORING -- do not chart) 1 each PRN DAILY PRN MC SEE COMMENTS; Start 07/07/19 at 09:00; Stop 07/08/19 at 08:13; Status DC Digoxin (Lanoxin) 500 mcg 1X ONCE IV Last administered on 07/07/19at 10:04; Start 07/07/19 at 10:00; Stop 07/07/19 at 10:01; Status DC Digoxin (Lanoxin) 125 mcg 1X ONCE IV Last administered on 07/07/19at 17:10; Start 07/07/19 at 18:00; Stop 07/07/19 at 18:01; Status DC Magnesium Sulfate 100 ml @ 25 mls/hr 1X ONCE IV Last administered on 07/07/19at 12:48; Start 07/07/19 at 13:00; Stop 07/07/19 at 16:59; Status DC Sodium Chloride 90 meq/Magnesium Sulfate 10 meq/ Calcium Gluconate 20 meq/ Multivitamins 10 ml/Chromium/ Copper/Manganese/ Seleni/Zn 0.5 ml/ Total Parenteral Nutrition/Amino Acids/Dextrose/ Fat Emulsion Intravenous 1,512 ml @ 63 mls/hr TPN CONT IV Last administered on 07/07/19at 22:25; Start 07/07/19 at 22:00; Stop 07/08/19 at 21:59; Status DC Sodium Chloride 1,000 ml @ 1,000 mls/hr Q1H PRN IV hypotension; Start 07/08/19 at 08:05; Stop 07/08/19 at 14:04; Status DC Albumin Human 200 ml @ 200 mls/hr 1X ONCE IV Last administered on 07/08/19at 08:57; Start 07/08/19 at 08:15; Stop 07/08/19 at 09:14; Status DC Diphenhydramine HCl (Benadryl) 25 mg 1X PRN PRN IV ITCHING; Start 07/08/19 at 08:15; Stop 07/09/19 at 08:14; Status DC Diphenhydramine HCl (Benadryl) 25 mg 1X PRN PRN IV ITCHING; Start 07/08/19 at 08:15; Stop 07/09/19 at 08:14; Status DC Sodium Chloride 1,000 ml @ 400 mls/hr Q2H30M PRN IV PATENCY; Start 07/08/19 at 08:05; Stop 07/08/19 at 20:04; Status DC Info (PHARMACY MONITORING -- do not chart) 1 each PRN DAILY PRN MC SEE COMMENTS; Start 07/08/19 at 08:15; Stop 07/12/19 at 07:57; Status DC Sodium Chloride 90 meq/Potassium Chloride 15 meq/ Potassium Phosphate 10 mmol/ Magnesium Sulfate 10 meq/Calcium Gluconate 20 meq/ Multivitamins 10 ml/Chromium/ Copper/Manganese/ Seleni/Zn 0.5 ml/ Total Parenteral Nutrition/Amino Acids/Dextrose/ Fat Emulsion Intravenous 1,512 ml @ 63 mls/hr TPN CONT IV Last administered on 07/08/19at 21:01; Start 07/08/19 at 22:00; Stop 07/09/19 at 21:59; Status DC Potassium Chloride/Water 100 ml @ 100 mls/hr 1X ONCE IV Last administered on 07/08/19at 14:09; Start 07/08/19 at 14:00; Stop 07/08/19 at 14:59; Status DC Benzocaine (Hurricaine One) 1 spray 1X ONCE MM Last administered on 07/08/19at 16:38; Start 07/08/19 at 14:30; Stop 07/08/19 at 14:31; Status DC Lidocaine HCl (Glydo (Lidocaine) Jelly) 1 ramu 1X ONCE MM Last administered on 07/08/19at 16:38; Start 07/08/19 at 14:30; Stop 07/08/19 at 14:31; Status DC Linezolid/Dextrose 300 ml @ 300 mls/hr Q12HR IV Last administered on 07/14/19at 21:04; Start 07/08/19 at 20:00; Stop 07/15/19 at 07:50; Status DC Acetaminophen (Tylenol) 650 mg PRN Q6HRS PRN PO MILD PAIN / TEMP; Start 07/09/19 at 03:30; Stop 07/09/19 at 03:36; Status DC Acetaminophen (Tylenol) 650 mg PRN Q6HRS PRN PEG MILD PAIN / TEMP Last administered on 08/04/19at 19:56; Start 07/09/19 at 03:36; Stop 08/31/19 at 10:25; Status DC Sodium Chloride 1,000 ml @ 1,000 mls/hr Q1H PRN IV hypotension; Start 07/09/19 at 07:50; Stop 07/09/19 at 13:49; Status DC Albumin Human 200 ml @ 200 mls/hr 1X PRN PRN IV Hypotension; Start 07/09/19 at 08:00; Stop 07/09/19 at 13:59; Status DC Sodium Chloride (Normal Saline Flush) 10 ml 1X PRN PRN IV AP catheter pack; Start 07/09/19 at 08:00; Stop 07/10/19 at 07:59; Status DC Sodium Chloride (Normal Saline Flush) 10 ml 1X PRN PRN IV RESIDENT CARE PROVIDER catheter pack; Start 07/09/19 at 08:00; Stop 07/10/19 at 07:59; Status DC Sodium Chloride 1,000 ml @ 400 mls/hr Q2H30M PRN IV PATENCY; Start 07/09/19 at 07:50; Stop 07/09/19 at 19:49; Status DC Info (PHARMACY MONITORING -- do not chart) 1 each PRN DAILY PRN MC SEE COMMENTS; Start 07/09/19 at 08:00; Status UNV Info (PHARMACY MONITORING -- do not chart) 1 each PRN DAILY PRN MC SEE COMMENTS; Start 07/09/19 at 08:00; Stop 07/11/19 at 08:25; Status DC Sodium Chloride 90 meq/Potassium Chloride 15 meq/ Potassium Phosphate 10 mmol/ Magnesium Sulfate 10 meq/Calcium Gluconate 20 meq/ Multivitamins 10 ml/Chromium/ Copper/Manganese/ Seleni/Zn 0.5 ml/ Total Parenteral Nutrition/Amino Acids/Dextrose/ Fat Emulsion Intravenous 1,512 ml @ 63 mls/hr TPN CONT IV Last administered on 07/09/19at 20:57; Start 07/09/19 at 22:00; Stop 07/10/19 at 21:59; Status DC Sodium Chloride 90 meq/Potassium Chloride 15 meq/ Potassium Phosphate 15 mmol/ Magnesium Sulfate 10 meq/Calcium Gluconate 20 meq/ Multivitamins 10 ml/Chromium/ Copper/Manganese/ Seleni/Zn 0.5 ml/ Total Parenteral Nutrition/Amino Acids/Dextrose/ Fat Emulsion Intravenous 1,512 ml @ 63 mls/hr TPN CONT IV ; Start 07/10/19 at 22:00; Stop 07/10/19 at 14:16; Status DC Sodium Chloride 90 meq/Potassium Chloride 15 meq/ Potassium Phosphate 15 mmol/ Magnesium Sulfate 10 meq/Calcium Gluconate 20 meq/ Multivitamins 10 ml/Chromium/ Copper/Manganese/ Seleni/Zn 0.5 ml/ Total Parenteral Nutrition/Amino Acids/Dextrose/ Fat Emulsion Intravenous 1,200 ml @ 50 mls/hr TPN CONT IV ; Start 07/10/19 at 22:00; Stop 07/10/19 at 14:17; Status DC Sodium Chloride 90 meq/Potassium Chloride 15 meq/ Potassium Phosphate 10 mmol/ Magnesium Sulfate 10 meq/Calcium Gluconate 20 meq/ Multivitamins 10 ml/Chromium/ Copper/Manganese/ Seleni/Zn 0.5 ml/ Total Parenteral Nutrition/Amino Aci ds/Dextrose/ Fat Emulsion Intravenous 1,200 ml @ 50 mls/hr TPN CONT IV Last administered on 07/10/19at 23:29; Start 07/10/19 at 22:00; Stop 07/11/19 at 21:59; Status DC Sodium Chloride 1,000 ml @ 1,000 mls/hr Q1H PRN IV hypotension; Start 07/11/19 at 07:28; Stop 07/11/19 at 13:27; Status DC Albumin Human 200 ml @ 200 mls/hr 1X ONCE IV Last administered on 07/11/19at 08:51; Start 07/11/19 at 07:30; Stop 07/11/19 at 08:29; Status DC Diphenhydramine HCl (Benadryl) 25 mg 1X PRN PRN IV ITCHING; Start 07/11/19 at 07:30; Stop 07/12/19 at 07:29; Status DC Diphenhydramine HCl (Benadryl) 25 mg 1X PRN PRN IV ITCHING; Start 07/11/19 at 07:30; Stop 07/12/19 at 07:29; Status DC Sodium Chloride 1,000 ml @ 400 mls/hr Q2H30M PRN IV PATENCY; Start 07/11/19 at 07:28; Stop 07/11/19 at 19:27; Status DC Info (PHARMACY MONITORING -- do not chart) 1 each PRN DAILY PRN MC SEE COMMENTS; Start 07/11/19 at 07:30; Stop 07/22/19 at 13:01; Status DC Metronidazole 100 ml @ 100 mls/hr Q6HRS IV Last administered on 07/27/19at 0 6:26; Start 07/11/19 at 08:30; Stop 07/27/19 at 09:58; Status DC Micafungin Sodium 100 mg/Dextrose 100 ml @ 100 mls/hr Q24H IV Last administered on 08/18/19at 08:18; Start 07/11/19 at 09:00; Stop 08/18/19 at 20:58; Status DC Propofol 0 ml @ As Directed STK-MED ONCE IV ; Start 07/11/19 at 07:53; Stop 07/11/19 at 07:53; Status DC Etomidate (Amidate) 20 mg STK-MED ONCE IV ; Start 07/11/19 at 07:53; Stop 07/11/19 at 07:54; Status DC Midazolam HCl (Versed) 5 mg STK-MED ONCE .ROUTE ; Start 07/11/19 at 07:57; Stop 07/11/19 at 07:57; Status DC Fentanyl Citrate 30 ml @ 0 mls/hr CONT PRN IV SEE PROTOCOL Last administered on 08/05/19at 06:12; Start 07/11/19 at 08:15; Stop 08/05/19 at 09:19; Status DC Artificial Tears (Artificial Tears) 1 drop PRN Q1HR PRN OU DRY EYE, 1st choice; Start 07/11/19 at 08:15; Stop 08/17/19 at 05:31; Status DC Midazolam HCl 50 mg/Sodium Chloride 50 ml @ 0 mls/hr CONT PRN IV SEE PROTOCOL Last administered on 07/14/19at 22:39; Start 07/11/19 at 08:15; Stop 07/16/19 at 15:59; Status DC Etomidate (Amidate) 8 mg 1X ONCE IV Last administered on 07/11/19at 08:33; Start 07/11/19 at 08:30; Stop 07/11/19 at 08:31; Status DC Succinylcholine Chloride (Anectine) 120 mg 1X ONCE IV Last administered on 07/11/19at 08:34; Start 07/11/19 at 08:30; Stop 07/11/19 at 08:31; Status DC Midazolam HCl (Versed) 5 mg 1X ONCE IV ; Start 07/11/19 at 08:30; Stop 07/11/19 at 08:31; Status DC Potassium Chloride 15 meq/ Bicarbonate Dialysis Soln w/ out KCl 5,007.5 ml @ 1,000 mls/ hr Q5H1M IV Last administered on 07/12/19at 11:11; Start 07/11/19 at 12:00; Stop 07/12/19 at 11:15; Status DC Potassium Chloride 15 meq/ Bicarbonate Dialysis Soln w/ out KCl 5,007.5 ml @ 1,000 mls/ hr Q5H1M IV Last administered on 07/12/19at 11:12; Start 07/11/19 at 12:00; Stop 07/12/19 at 11:17; Status DC Potassium Chloride 15 meq/ Bicarbonate Dialysis Soln w/ out KCl 5,007.5 ml @ 1,000 mls/ hr Q5H1M IV Last administered on 07/12/19at 11:11; Start 07/11/19 at 12:00; Stop 07/12/19 at 11:19; Status DC Sodium Chloride 90 meq/Potassium Chloride 15 meq/ Potassium Phosphate 10 mmol/ Magnesium Sulfate 10 meq/Calcium Gluconate 20 meq/ Multivitamins 10 ml/Chromium/ Copper/Manganese/ Seleni/Zn 0.5 ml/ Total Parenteral Nutrition/Amino Acids/Dextrose/ Fat Emulsion Intravenous 1,400 ml @ 58.333 mls/ hr TPN CONT IV Last administered on 07/11/19at 21:42; Start 07/11/19 at 22:00; Stop 07/12/19 at 21:59; Status DC Heparin Sodium (Porcine) (Heparin Sodium) 5,000 unit Q8HRS SQ Last administered on 07/16/19at 05:55; Start 07/11/19 at 15:00; Stop 07/16/19 at 13:28; Status DC Meropenem 500 mg/ Sodium Chloride 50 ml @ 100 mls/hr Q6HRS IV Last administered on 07/13/19at 06:00; Start 07/12/19 at 09:00; Stop 07/13/19 at 07:29; Status DC Potassium Phosphate 20 mmol/ Sodium Chloride 106.6667 ml @ 51.667 m... 1X ONCE IV Last administered on 07/12/19at 11:22; Start 07/12/19 at 10:15; Stop 07/12/19 at 12:18; Status DC Acetaminophen (Tylenol Supp) 650 mg PRN Q6HRS PRN DE MILD PAIN / TEMP > 100.3'F Last administered on 10/31/19at 20:17; Start 07/12/19 at 10:30 Potassium Chloride/Water 100 ml @ 100 mls/hr Q1H IV Last administered on 07/12/19at 12:12; Start 07/12/19 at 11:00; Stop 07/12/19 at 12:59; Status DC Potassium Chloride 20 meq/ Bicarbonate Dialysis Soln w/ out KCl 5,010 ml @ 1,000 mls/hr Q5H1M IV Last administered on 07/13/19at 08:48; Start 07/12/19 at 12:00; Stop 07/13/19 at 13:03; Status DC Potassium Chloride 20 meq/ Bicarbonate Dialysis Soln w/ out KCl 5,010 ml @ 1,000 mls/hr Q5H1M IV Last administered on 07/17/19at 14:52; Start 07/12/19 at 11:30; Stop 07/17/19 at 19:59; Status DC Potassium Chloride 20 meq/ Bicarbonate Dialysis Soln w/ out KCl 5,010 ml @ 1,000 mls/hr Q5H1M IV Last administered on 07/17/19at 14:53; Start 07/12/19 at 11:30; Stop 07/17/19 at 19:59; Status DC Sodium Chloride 90 meq/Potassium Chloride 15 meq/ Potassium Phosphate 15 mmol/ Magnesium Sulfate 10 meq/Calcium Gluconate 15 meq/ Multivitamins 10 ml/Chromium/ Copper/Manganese/ Seleni/Zn 0.5 ml/ Total Parenteral Nutrition/Amino Acids/Dextrose/ Fat Emulsion Intravenous 1,400 ml @ 58.333 mls/ hr TPN CONT IV Last administered on 07/12/19at 22:17; Start 07/12/19 at 22:00; Stop 07/13/19 at 21:59; Status DC Cefepime HCl (Maxipime) 2 gm Q12HR IVP Last administered on 07/26/19at 20:56; Start 07/13/19 at 09:00; Stop 07/27/19 at 09:58; Status DC Daptomycin 500 mg/ Sodium Chloride 50 ml @ 100 mls/hr Q48H IV Last administered on 07/29/19at 09:57; Start 07/13/19 at 08:30; Stop 07/29/19 at 10:07; Status DC Lidocaine HCl (Buffered Lidocaine 1%) 3 ml 1X ONCE INJ Last administered on 07/13/19at 10:27; Start 07/13/19 at 10:30; Stop 07/13/19 at 10:31; Status DC Potassium Phosphate 20 mmol/ Sodium Chloride 106.6667 ml @ 51.667 m... 1X ONCE IV Last administered on 07/13/19at 12:51; Start 07/13/19 at 13:00; Stop 07/13/19 at 15:03; Status DC Sodium Chloride 90 meq/Potassium Chloride 15 meq/ Potassium Phosphate 18 mmol/ Magnesium Sulfate 8 meq/Calcium Gluconate 15 meq/ Multivitamins 10 ml/Chromium/ Copper/Manganese/ Seleni/Zn 0.5 ml/ Total Parenteral Nutrition/Amino Acids/Dextrose/ Fat Emulsion Intravenous 1,400 ml @ 58.333 mls/ hr TPN CONT IV Last administered on 07/13/19at 22:16; Start 07/13/19 at 22:00; Stop 07/14/19 at 21:59; Status DC Potassium Chloride 20 meq/ Bicarbonate Dialysis Soln w/ out KCl 5,010 ml @ 1,000 mls/hr Q5H1M IV Last administered on 07/17/19at 14:54; Start 07/13/19 at 16:00; Stop 07/17/19 at 19:59; Status DC Multi-Ingred Cream/Lotion/Oil/ Oint (Artificial Tears Eye Ointment) 1 ramu PRN Q1HR PRN OU DRY EYE, 2nd choice Last administered on 08/01/19at 08:19; Start 07/13/19 at 17:30; Stop 09/21/19 at 14:39; Status DC Sodium Chloride 90 meq/Potassium Chloride 15 meq/ Potassium Phosphate 18 mmol/ Magnesium Sulfate 8 meq/Calcium Gluconate 15 meq/ Multivitamins 10 ml/Chromium/ Copper/Manganese/ Seleni/Zn 0.5 ml/ Total Parenteral Nutrition/Amino Acids/Dextrose/ Fat Emulsion Intravenous 1,400 ml @ 58.333 mls/ hr TPN CONT IV Last administered on 07/14/19at 22:00; Start 07/14/19 at 22:00; Stop 07/15/19 at 21:59; Status DC Albumin Human 500 ml @ 125 mls/hr 1X ONCE IV ; Start 07/14/19 at 14:15; Stop 07/14/19 at 18:14; Status DC Sodium Chloride 90 meq/Potassium Chloride 15 meq/ Potassium Phosphate 18 mmol/ Magnesium Sulfate 8 meq/Calcium Gluconate 15 meq/ Multivitamins 10 ml/Chromium/ Copper/Manganese/ Seleni/Zn 0.5 ml/ Insulin Human Regular 10 unit/ Total Parenteral Nutrition/Amino Acids/Dextrose/ Fat Emulsion Intravenous 1,400 ml @ 58.333 mls/ hr TPN CONT IV Last administered on 07/15/19at 21:43; Start 07/15/19 at 22:00; Stop 07/16/19 at 21:59; Status DC Lidocaine HCl (Buffered Lidocaine 1%) 3 ml STK-MED ONCE .ROUTE ; Start 07/13/19 at 10:00; Stop 07/15/19 at 13:57; Status DC Midazolam HCl 100 mg/Sodium Chloride 100 ml @ 7 mls/hr CONT PRN IV SEE PROTOCOL Last administered on 07/27/19at 15:35; Start 07/16/19 at 16:00; Stop 09/21/19 at 14:38; Status DC Sodium Chloride 90 meq/Potassium Chloride 15 meq/ Potassium Phosphate 18 mmol/ Magnesium Sulfate 8 meq/Calcium Gluconate 15 meq/ Multivitamins 10 ml/Chromium/ Copper/Manganese/ Seleni/Zn 0.5 ml/ Insulin Human Regular 15 unit/ Total Pare nteral Nutrition/Amino Acids/Dextrose/ Fat Emulsion Intravenous 1,400 ml @ 58.333 mls/ hr TPN CONT IV Last administered on 07/16/19at 20:34; Start 07/16/19 at 22:00; Stop 07/17/19 at 21:59; Status DC Info (Icu Electrolyte Protocol) 1 ea CONT PRN PRN MC PER PROTOCOL; Start 07/17/19 at 13:15 Sodium Chloride 90 meq/Potassium Chloride 15 meq/ Potassium Phosphate 18 mmol/ Magnesium Sulfate 8 meq/Calcium Gluconate 15 meq/ Multivitamins 10 ml/Chromium/ Copper/Manganese/ Seleni/Zn 0.5 ml/ Insulin Human Regular 15 unit/ Total Parenteral Nutrition/Amino Acids/Dextrose/ Fat Emulsion Intravenous 1,400 ml @ 58.333 mls/ hr TPN CONT IV Last administered on 07/17/19at 22:05; Start 07/17/19 at 22:00; Stop 07/18/19 at 21:59; Status DC Potassium Chloride 15 meq/ Bicarbonate Dialysis Soln w/ out KCl 5,007.5 ml @ 1,000 mls/ hr Q5H1M IV Last administered on 07/20/19at 18:14; Start 07/17/19 at 20:00; Stop 07/21/19 at 13:08; Status DC Potassium Chloride 15 meq/ Bicarbonate Dialysis Soln w/ out KCl 5,007.5 ml @ 1,000 mls/ hr Q5H1M IV Last administered on 07/20/19at 18:14; Start 07/17/19 at 20:00; Stop 07/21/19 at 13:08; Status DC Potassium Chloride 15 meq/ Bicarbonate Dialysis Soln w/ out KCl 5,007.5 ml @ 1,000 mls/ hr Q5H1M IV Last administered on 07/20/19at 18:14; Start 07/17/19 at 20:00; Stop 07/21/19 at 13:08; Status DC Iohexol (Omnipaque 240 Mg/ml) 30 ml 1X ONCE PO Last administered on 07/18/19at 11:30; Start 07/18/19 at 11:30; Stop 07/18/19 at 11:33; Status DC Info (CONTRAST GIVEN -- Rx MONITORING) 1 each PRN DAILY PRN MC SEE COMMENTS; Start 07/18/19 at 11:45; Stop 07/20/19 at 11:44; Status DC Sodium Chloride 90 meq/Potassium Chloride 15 meq/ Potassium Phosphate 18 mmol/ Magnesium Sulfate 8 meq/Calcium Gluconate 15 meq/ Multivitamins 10 ml/Chromium/ Copper/Manganese/ Seleni/Zn 0.5 ml/ Insulin Human Regular 15 unit/ Total Parenteral Nutrition/Amino Acids/Dextrose/ Fat Emulsion Intravenous 1,400 ml @ 58.333 mls/ hr TPN CONT IV Last administered on 07/18/19at 21:47; Start 07/18/19 at 22:00; Stop 07/19/19 at 21:59; Status DC Sodium Chloride 90 meq/Potassium Chloride 15 meq/ Potassium Phosphate 18 mmol/ Magnesium Sulfate 8 meq/Calcium Gluconate 15 meq/ Multivitamins 10 ml/Chromium/ Copper/Manganese/ Seleni/Zn 0.5 ml/ Insulin Human Regular 20 unit/ Total Parenteral Nutrition/Amino Acids/Dextrose/ Fat Emulsion Intravenous 1,400 ml @ 58.333 mls/ hr TPN CONT IV Last administered on 07/19/19at 21:36; Start 07/19/19 at 22:00; Stop 07/20/19 at 21:59; Status DC Alteplase, Recombinant (Cathflo For Central Catheter Clearance) 1 mg 1X ONCE INT CAT Last administered on 07/19/19at 20:03; Start 07/19/19 at 19:30; Stop 07/19/19 at 19:46; Status DC Alteplase, Recombinant (Cathflo For Central Catheter Clearance) 1 mg 1X ONCE INT CAT Last administered on 07/19/19at 22:05; Start 07/19/19 at 22:00; Stop 07/19/19 at 22:01; Status DC Sodium Chloride 90 meq/Potassium Chloride 15 meq/ Potassium Phosphate 18 mmol/ Magnesium Sulfate 8 meq/Calcium Gluconate 15 meq/ Multivitamins 10 ml/Chromium/ Copper/Manganese/ Seleni/Zn 0.5 ml/ Insulin Human Regular 20 unit/ Total Parenteral Nutrition/Amino Acids/Dextrose/ Fat Emulsion Intravenous 1,400 ml @ 58.333 mls/ hr TPN CONT IV Last administered on 07/20/19at 21:30; Start 07/20/19 at 22:00; Stop 07/21/19 at 21:59; Status DC Dexmedetomidine HCl 400 mcg/ Sodium Chloride 100 ml @ 0 mls/hr CONT PRN IV ANXIETY / AGITATION Last administered on 09/17/19at 12:57; Start 07/21/19 at 08:15; Stop 09/17/19 at 18:31; Status DC Sodium Chloride 500 ml @ 500 mls/hr 1X PRN PRN IV ELEVATED BP, SEE COMMENTS; Start 07/21/19 at 08:15 Atropine Sulfate (ATROPINE 0.5mg SYRINGE) 0.5 mg PRN Q5MIN PRN IV SEE COMMENTS; Start 07/21/19 at 08:15 Furosemide (Lasix) 20 mg 1X ONCE IVP Last administered on 07/21/19at 08:19; Start 07/21/19 at 08:15; Stop 07/21/19 at 08:16; Status DC Lidocaine HCl (Buffered Lidocaine 1%) 3 ml STK-MED ONCE .ROUTE ; Start 07/21/19 at 08:39; Stop 07/21/19 at 08:39; Status DC Lidocaine HCl (Buffered Lidocaine 1%) 6 ml 1X ONCE INJ Last administered on 07/21/19at 09:05; Start 07/21/19 at 09:00; Stop 07/21/19 at 09:06; Status DC Sodium Chloride 90 meq/Potassium Chloride 15 meq/ Potassium Phosphate 18 mmol/ Magnesium Sulfate 8 meq/Calcium Gluconate 15 meq/ Multivitamins 10 ml/Chromium/ Copper/Manganese/ Seleni/Zn 0.5 ml/ Insulin Human Regular 20 unit/ Total Parenteral Nutrition/Amino Acids/Dextrose/ Fat Emulsion Intravenous 1,400 ml @ 58.333 mls/ hr TPN CONT IV Last administered on 07/21/19at 22:45; Start 07/21/19 at 22:00; Stop 07/22/19 at 21:59; Status DC Sodium Chloride 1,000 ml @ 1,000 mls/hr Q1H PRN IV hypotension; Start 07/22/19 at 07:30; Stop 07/22/19 at 13:29; Status DC Albumin Human 200 ml @ 200 mls/hr 1X PRN PRN IV Hypotension Last administered on 07/22/19at 09:36; Start 07/22/19 at 07:30; Stop 07/22/19 at 13:29; Status DC Sodium Chloride (Normal Saline Flush) 10 ml 1X PRN PRN IV AP catheter pack; Start 07/22/19 at 07:30; Stop 07/22/19 at 21:29; Status DC Sodium Chloride (Normal Saline Flush) 10 ml 1X PRN PRN IV RESIDENT CARE PROVIDER catheter pack; Start 07/22/19 at 07:30; Stop 07/23/19 at 07:29; Status DC Sodium Chloride 1,000 ml @ 400 mls/hr Q2H30M PRN IV PATENCY; Start 07/22/19 at 07:30; Stop 07/22/19 at 19:29; Status DC Info (PHARMACY MONITORING -- do not chart) 1 each PRN DAILY PRN MC SEE COMMENTS; Start 07/22/19 at 07:30; Stop 07/22/19 at 13:02; Status DC Info (PHARMACY MONITORING -- do not chart) 1 each PRN DAILY PRN MC SEE COMMENTS; Start 07/22/19 at 07:30; Stop 07/24/19 at 12:45; Status DC Sodium Chloride 90 meq/Potassium Chloride 15 meq/ Potassium Phosphate 10 mmol/ Magnesium Sulfate 8 meq/Calcium Gluconate 15 meq/ Multivitamins 10 ml/Chromium/ Copper/Manganese/ Seleni/Zn 0.5 ml/ Insulin Human Regular 25 unit/ Total Parenteral Nutrition/Amino Acids/Dextrose/ Fat Emulsion Intravenous 1,400 ml @ 58.333 mls/ hr TPN CONT IV Last administered on 07/22/19at 22:19; Start 07/22/19 at 22:00; Stop 07/23/19 at 21:59; Status DC Heparin Sodium (Porcine) (Heparin Sodium) 5,000 unit Q12HR SQ Last administered on 08/14/19at 08:59; Start 07/22/19 at 21:00; Stop 08/14/19 at 10:05; Status DC Ondansetron HCl (Zofran) 4 mg PRN Q6HRS PRN IV NAUSEA/VOMITING; Start 07/25/19 at 07:00; Stop 07/26/19 at 06:59; Status DC Fentanyl Citrate (Fentanyl 2ml Vial) 25 mcg PRN Q5MIN PRN IV MILD PAIN 1-3; Start 07/25/19 at 07:00; Stop 07/26/19 at 06:59; Status DC Fentanyl Citrate (Fentanyl 2ml Vial) 50 mcg PRN Q5MIN PRN IV MODERATE TO SEVERE PAIN; Start 07/25/19 at 07:00; Stop 07/26/19 at 06:59; Status DC Ringer's Solution 1,000 ml @ 30 mls/hr Q24H IV ; Start 07/25/19 at 07:00; Stop 07/25/19 at 18:59; Status DC Lidocaine HCl (Xylocaine-Mpf 1% 2ml Vial) 2 ml PRN 1X PRN ID PRIOR TO IV START; Start 07/25/19 at 07:00; Stop 07/26/19 at 06:59; Status DC Prochlorperazine Edisylate (Compazine) 5 mg PACU PRN PRN IV NAUSEA, MRX1; Start 07/25/19 at 07:00; Stop 07/26/19 at 06:59; Status DC Sodium Chloride 1,000 ml @ 1,000 mls/hr Q1H PRN IV hypotension; Start 07/23/19 at 09:10; Stop 07/23/19 at 15:09; Status DC Albumin Human 200 ml @ 200 mls/hr 1X PRN PRN IV Hypotension Last administered on 07/23/19at 10:10; Start 07/23/19 at 09:15; Stop 07/23/19 at 15:14; Status DC Sodium Chloride 1,000 ml @ 400 mls/hr Q2H30M PRN IV PATENCY; Start 07/23/19 at 09:10; Stop 07/23/19 at 21:09; Status DC Info (PHARMACY MONITORING -- do not chart) 1 each PRN DAILY PRN MC SEE COMMENTS; Start 07/23/19 at 09:15; Stop 07/24/19 at 12:45; Status DC Info (PHARMACY MONITORING -- do not chart) 1 each PRN DAILY PRN MC SEE COMMENTS; Start 07/23/19 at 09:15; Stop 07/24/19 at 12:45; Status DC Sodium Chloride 90 meq/Potassium Chloride 15 meq/ Potassium Phosphate 10 mmol/ Magnesium Sulfate 8 meq/Calcium Gluconate 15 meq/ Multivitamins 10 ml/Chromium/ Copper/Manganese/ Seleni/Zn 0.5 ml/ Insulin Human Regular 25 unit/ Total Parenteral Nutrition/Amino Acids/Dextrose/ Fat Emulsion Intravenous 1,400 ml @ 58.333 mls/ hr TPN CONT IV Last administered on 07/23/19at 22:10; Start 07/23/19 at 22:00; Stop 07/24/19 at 21:59; Status DC Magnesium Sulfate 50 ml @ 25 mls/hr PRN DAILY PRN IV for Mag < 1.7 on am labs L ast administered on 10/06/19at 10:57; Start 07/24/19 at 09:15 Sodium Chloride 90 meq/Potassium Chloride 15 meq/ Potassium Phosphate 10 mmol/ Magnesium Sulfate 8 meq/Calcium Gluconate 15 meq/ Multivitamins 10 ml/Chromium/ Copper/Manganese/ Seleni/Zn 0.5 ml/ Insulin Human Regular 25 unit/ Total Parenteral Nutrition/Amino Acids/Dextrose/ Fat Emulsion Intravenous 1,400 ml @ 58.333 mls/ hr TPN CONT IV Last administered on 07/24/19at 21:20; Start 07/24/19 at 22:00; Stop 07/25/19 at 21:59; Status DC Sodium Chloride 1,000 ml @ 1,000 mls/hr Q1H PRN IV hypotension; Start 07/24/19 at 12:23; Stop 07/24/19 at 18:22; Status DC Albumin Human 200 ml @ 200 mls/hr 1X ONCE IV Last administered on 07/24/19at 13:34; Start 07/24/19 at 12:30; Stop 07/24/19 at 13:29; Status DC Diphenhydramine HCl (Benadryl) 25 mg 1X PRN PRN IV ITCHING; Start 07/24/19 at 12:30; Stop 07/25/19 at 12:29; Status DC Diphenhydramine HCl (Benadryl) 25 mg 1X PRN PRN IV ITCHING; Start 07/24/19 at 12:30; Stop 07/25/19 at 12:29; Status DC Info (PHARMACY MONITORING -- do not chart) 1 each PRN DAILY PRN MC SEE COMMENTS; Start 07/24/19 at 12:30; Status Cancel Bupivacaine HCl/ Epinephrine Bitart (Sensorcain-Epi 0.5%-1:[id number] Mpf) 30 ml STK-MED ONCE .ROUTE Last administered on 07/25/19at 11:44; Start 07/25/19 at 11:00; Stop 07/25/19 at 11:01; Status DC Cellulose (Surgicel Fibrillar 1x2) 1 each STK-MED ONCE .ROUTE ; Start 07/25/19 at 11:00; Stop 07/25/19 at 11:01; Status DC Sodium Chloride 90 meq/Potassium Chloride 15 meq/ Potassium Phosphate 10 mmol/ Magnesium Sulfate 12 meq/Calcium Gluconate 15 meq/ Multivitamins 10 ml/Chromium/ Copper/Manganese/ Seleni/Zn 0.5 ml/ Insulin Human Regular 25 unit/ Total Parenteral Nutrition/Amino Acids/Dextrose/ Fat Emulsion Intravenous 1,400 ml @ 58.333 mls/ hr TPN CONT IV Last administered on 07/25/19at 22:24; Start 07/25/19 at 22:00; Stop 07/26/19 at 21:59; Status DC Propofol 20 ml @ As Directed STK-MED ONCE IV ; Start 07/25/19 at 11:07; Stop 07/25/19 at 11:07; Status DC Cellulose (Surgicel Hemostat 4x8) 1 each STK-MED ONCE .ROUTE Last administered on 07/25/19at 11:44; Start 07/25/19 at 11:55; Stop 07/25/19 at 11:56; Status DC Sevoflurane (Ultane) 60 ml STK-MED ONCE IH ; Start 07/25/19 at 12:46; Stop 07/25/19 at 12:46; Status DC Sodium Chloride 1,000 ml @ 1,000 mls/hr Q1H PRN IV hypotension; Start 07/25/19 at 13:51; Stop 07/25/19 at 19:50; Status DC Albumin Human 200 ml @ 200 mls/hr 1X PRN PRN IV Hypotension Last administered on 07/25/19at 14:51; Start 07/25/19 at 14:00; Stop 07/25/19 at 19:59; Status DC Diphenhydramine HCl (Benadryl) 25 mg 1X PRN PRN IV ITCHING; Start 07/25/19 at 14:00; Stop 07/26/19 at 13:59; Status DC Diphenhydramine HCl (Benadryl) 25 mg 1X PRN PRN IV ITCHING; Start 07/25/19 at 14:00; Stop 07/26/19 at 13:59; Status DC Sodium Chloride 1,000 ml @ 400 mls/hr Q2H30M PRN IV PATENCY; Start 07/25/19 at 13:51; Stop 07/26/19 at 01:50; Status DC Info (PHARMACY MONITORING -- do not chart) 1 each PRN DAILY PRN MC SEE COMMENTS; Start 07/25/19 at 14:00; Stop 07/28/19 at 08:16; Status DC Heparin Sodium (Porcine) (Hep Lock Adult) 500 unit STK-MED ONCE IVP ; Start 07/26/19 at 09:29; Stop 07/26/19 at 09:30; Status DC Sodium Chloride 1,000 ml @ 1,000 mls/hr Q1H PRN IV hypotension; Start 07/26/19 at 10:43; Stop 07/26/19 at 16:42; Status DC Sodium Chloride 1,000 ml @ 400 mls/hr Q2H30M PRN IV PATENCY; Start 07/26/19 at 10:43; Stop 07/26/19 at 22:42; Status DC Info (PHARMACY MONITORING -- do not chart) 1 each PRN DAILY PRN MC SEE COMMENTS; Start 07/26/19 at 10:45; Status UNV Info (PHARMACY MONITORING -- do not chart) 1 each PRN DAILY PRN MC SEE COMMENT S; Start 07/26/19 at 10:45; Status UNV Sodium Chloride 90 meq/Potassium Chloride 15 meq/ Magnesium Sulfate 12 meq/Calcium Gluconate 15 meq/ Multivitamins 10 ml/Chromium/ Copper/Manganese/ Seleni/Zn 0.5 ml/ Insulin Human Regular 25 unit/ Total Parenteral Nu trition/Amino Acids/Dextrose/ Fat Emulsion Intravenous 1,400 ml @ 58.333 mls/ hr TPN CONT IV Last administered on 07/26/19at 22:13; Start 07/26/19 at 22:00; Stop 07/27/19 at 21:59; Status DC Sodium Chloride 1,000 ml @ 1,000 mls/hr Q1H PRN IV hypotension; Start 07/27/19 at 07:50; Stop 07/27/19 at 13:49; Status DC Albumin Human 200 ml @ 200 mls/hr 1X ONCE IV ; Start 07/27/19 at 08:00; Stop 07/27/19 at 08:53; Status DC Diphenhydramine HCl (Benadryl) 25 mg 1X PRN PRN IV ITCHING; Start 07/27/19 at 08:00; Stop 07/28/19 at 07:59; Status DC Diphenhydramine HCl (Benadryl) 25 mg 1X PRN PRN IV ITCHING; Start 07/27/19 at 08:00; Stop 07/28/19 at 07:59; Status DC Info (PHARMACY MONITORING -- do not chart) 1 each PRN DAILY PRN MC SEE COMMENTS; Start 07/27/19 at 08:00; Stop 07/28/19 at 08:16; Status DC Albumin Human 50 ml @ 50 mls/hr 1X ONCE IV ; Start 07/27/19 at 08:53; Stop 07/27/19 at 08:56; Status DC Albumin Human 200 ml @ 50 mls/hr PRN 1X PRN IV HYPOTENSION Last administered on 08/02/19at 11:54; Start 07/27/19 at 09:00; Stop 09/08/19 at 11:14; Status DC Meropenem 500 mg/ Sodium Chloride 50 ml @ 100 mls/hr Q12H IV Last administered on 08/16/19at 10:45; Start 07/27/19 at 10:00; Stop 08/16/19 at 12:37; Status DC Sodium Chloride 90 meq/Magnesium Sulfate 12 meq/ Calcium Gluconate 15 meq/ Multivitamins 10 ml/Chromium/ Copper/Manganese/ Seleni/Zn 0.5 ml/ Insulin Human Regular 25 unit/ Total Parenteral Nutrition/Amino Acids/Dextrose/ Fat Emulsion Intravenous 1,400 ml @ 58.333 mls/ hr TPN CONT IV Last administered on 07/27/19at 21:41; Start 07/27/19 at 22:00; Stop 07/28/19 at 21:59; Status DC Sodium Chloride 1,000 ml @ 1,000 mls/hr Q1H PRN IV hypotension; Start 07/28/19 at 07:58; Stop 07/28/19 at 13:57; Status DC Albumin Human 200 ml @ 200 mls/hr 1X PRN PRN IV Hypotension Last administered on 07/28/19at 09:30; Start 07/28/19 at 08:00; Stop 07/28/19 at 13:59; Status DC Sodium Chloride 1,000 ml @ 400 mls/hr Q2H30M PRN IV PATENCY; Start 07/28/19 at 07:58; Stop 07/28/19 at 19:57; Status DC Info (PHARMACY MONITORING -- do not chart) 1 each PRN DAILY PRN MC SEE COMMENTS; Start 07/28/19 at 08:00; Status Cancel Info (PHARMACY MONITORING -- do not chart) 1 each PRN DAILY PRN MC SEE COMMENTS; Start 07/28/19 at 08:15; Status UNV Sodium Chloride 90 meq/Potassium Phosphate 5 mmol/ Magnesium Sulfate 12 meq/Calcium Gluconate 15 meq/ Multivitamins 10 ml/Chromium/ Copper/Manganese/ Seleni/Zn 0.5 ml/ Insulin Human Regular 30 unit/ Total Parenteral Nutrition/Amino Acids/Dextrose/ Fat Emulsion Intravenous 1,400 ml @ 58.333 mls/ hr TPN CONT IV Last administered on 07/28/19at 22:08; Start 07/28/19 at 22:00; Stop 07/29/19 at 21:59; Status DC Linezolid/Dextrose 300 ml @ 300 mls/hr Q12HR IV Last administered on 08/08/19at 20:40; Start 07/29/19 at 11:00; Stop 08/09/19 at 08:10; Status DC Sodium Chloride 90 meq/Potassium Phosphate 15 mmol/ Magnesium Sulfate 12 meq/Calcium Gluconate 15 meq/ Multivitamins 10 ml/Chromium/ Copper/Manganese/ Seleni/Zn 0.5 ml/ Insulin Human Regular 30 unit/ Total Parenteral Nutrition/Amino Acids/Dextrose/ Fat Emulsion Intravenous 1,400 ml @ 58.333 mls/ hr TPN CONT IV Last administered on 07/29/19at 21:49; Start 07/29/19 at 22:00; Stop 07/30/19 at 21:59; Status DC Sodium Chloride 90 meq/Potassium Phosphate 15 mmol/ Magnesium Sulfate 12 meq/Calcium Gluconate 15 meq/ Multivitamins 10 ml/Chromium/ Copper/Manganese/ Seleni/Zn 0.5 ml/ Insulin Human Regular 40 unit/ Total Parenteral Nutrition/Amino Acids/Dextrose/ Fat Emulsion Intravenous 1,400 ml @ 58.333 mls/ hr TPN CONT IV Last administered on 07/30/19at 21:21; Start 07/30/19 at 22:00; Stop 07/31/19 at 21:59; Status DC Sodium Chloride 1,000 ml @ 1,000 mls/hr Q1H PRN IV hypotension; Start 07/30/19 at 13:26; Stop 07/30/19 at 19:25; Status DC Albumin Human 200 ml @ 200 mls/hr 1X PRN PRN IV Hypotension Last administered on 07/30/19at 15:00; Start 07/30/19 at 13:30; Stop 07/30/19 at 19:29; Status DC Sodium Chloride (Normal Saline Flush) 10 ml 1X PRN PRN IV AP catheter pack; Start 07/30/19 at 13:30; Stop 07/31/19 at 13:29; Status DC Sodium Chloride (Normal Saline Flush) 10 ml 1X PRN PRN IV RESIDENT CARE PROVIDER catheter pack; Start 07/30/19 at 13:30; Stop 07/31/19 at 13:29; Status DC Sodium Chloride 1,000 ml @ 400 mls/hr Q2H30M PRN IV PATENCY; Start 07/30/19 at 13:26; Stop 07/31/19 at 01:25; Status DC Info (PHARMACY MONITORING -- do not chart) 1 each PRN DAILY PRN MC SEE COMMENTS; Start 07/30/19 at 13:30; Stop 07/30/19 at 13:33; Status DC Info (PHARMACY MONITORING -- do not chart) 1 each PRN DAILY PRN MC SEE COMMENTS; Start 07/30/19 at 13:30; Stop 07/30/19 at 13:34; Status DC Sodium Chloride 90 meq/Potassium Phosphate 19 mmol/ Magnesium Sulfate 12 meq/Calcium Gluconate 15 meq/ Multivitamins 10 ml/Chromium/ Copper/Manganese/ Seleni/Zn 0.5 ml/ Insulin Human Regular 40 unit/ Total Parenteral Nutrition/Amino Acids/Dextrose/ Fat Emulsion Intravenous 1,400 ml @ 58.333 mls/ hr TPN CONT IV Last administered on 07/31/19at 21:54; Start 07/31/19 at 22:00; Stop 08/01/19 at 21:59; Status DC Sodium Chloride 1,000 ml @ 1,000 mls/hr Q1H PRN IV hypotension; Start 08/01/19 at 09:35; Stop 08/01/19 at 15:34; Status DC Albumin Human 200 ml @ 200 mls/hr 1X PRN PRN IV Hypotension; Start 08/01/19 at 09:45; Stop 08/01/19 at 15:44; Status DC Diphenhydramine HCl (Benadryl) 25 mg 1X PRN PRN IV ITCHING; Start 08/01/19 at 09:45; Stop 08/02/19 at 09:44; Status DC Diphenhydramine HCl (Benadryl) 25 mg 1X PRN PRN IV ITCHING; Start 08/01/19 at 09:45; Stop 08/02/19 at 09:44; Status DC Sodium Chloride 1,000 ml @ 400 mls/hr Q2H30M PRN IV PATENCY; Start 08/01/19 at 09:35; Stop 08/01/19 at 21:34; Status DC Info (PHARMACY MONITORING -- do not chart) 1 each PRN DAILY PRN MC SEE COMMENTS; Start 08/01/19 at 09:45; Status Cancel Sodium Chloride 100 meq/Potassium Phosphate 19 mmol/ Magnesium Sulfate 12 meq/Calcium Gluconate 15 meq/ Multivitamins 10 ml/Chromium/ Copper/Manganese/ Seleni/Zn 0.5 ml/ Insulin Human Regular 40 unit/ Potassium Chloride 20 meq/ Total Parenteral Nutrition/Amino Acids/Dextrose/ Fat Emulsion Intravenous 1,400 ml @ 58.333 mls/ hr TPN CONT IV Last administered on 08/01/19at 22:02; Start 08/01/19 at 22:00; Stop 08/02/19 at 21:59; Status DC Furosemide (Lasix) 40 mg 1X ONCE IVP Last administered on 08/01/19at 14:39; Start 08/01/19 at 14:30; Stop 08/01/19 at 14:31; Status DC Metronidazole 100 ml @ 100 mls/hr Q8HRS IV Last administered on 08/09/19at 06:04; Start 08/02/19 at 10:00; Stop 08/09/19 at 08:10; Status DC Sodium Chloride 1,000 ml @ 1,000 mls/hr Q1H PRN IV hypotension; Start 08/02/19 at 08:00; Stop 08/02/19 at 13:59; Status DC Albumin Human 200 ml @ 200 mls/hr 1X PRN PRN IV Hypotension; Start 08/02/19 at 08:00; Stop 08/02/19 at 13:59; Status DC Sodium Chloride 1,000 ml @ 400 mls/hr Q2H30M PRN IV PATENCY; Start 08/02/19 at 08:00; Stop 08/02/19 at 19:59; Status DC Info (PHARMACY MONITORING -- do not chart) 1 each PRN DAILY PRN MC SEE COMMENTS; Start 08/02/19 at 11:30; Status UNV Info (PHARMACY MONITORING -- do not chart) 1 each PRN DAILY PRN MC SEE COMMENTS; Start 08/02/19 at 11:30; Stop 08/04/19 at 12:13; Status DC Sodium Chloride 100 meq/Potassium Phosphate 19 mmol/ Magnesium Sulfate 12 meq/ Calcium Gluconate 15 meq/ Multivitamins 10 ml/Chromium/ Copper/Manganese/ Seleni/Zn 0.5 ml/ Insulin Human Regular 40 unit/ Potassium Chloride 20 meq/ Total Parenteral Nutrition/Amino Acids/Dextrose/ Fat Emulsion Intravenous 1,400 ml @ 58.333 mls/ hr TPN CONT IV Last administered on 08/02/19at 21:52; Start 08/02/19 at 22:00; Stop 08/03/19 at 21:59; Status DC Sodium Chloride (Normal Saline Flush) 10 ml QSHIFT PRN IV AFTER MEDS AND BLOOD DRAWS; Start 08/02/19 at 15:00; Stop 08/30/19 at 11:27; Status DC Sodium Chloride (Normal Saline Flush) 10 ml PRN Q5MIN PRN IV AFTER MEDS AND BLOOD DRAWS; Start 08/02/19 at 15:00 Sodium Chloride (Normal Saline Flush) 20 ml PRN Q5MIN PRN IV AFTER MEDS AND BLOOD DRAWS; Start 08/02/19 at 15:00 Sodium Chloride 100 meq/Potassium Phosphate 19 mmol/ Magnesium Sulfate 12 meq/Calcium Gluconate 15 meq/ Multivitamins 10 ml/Chromium/ Copper/Manganese/ Seleni/Zn 0.5 ml/ Insulin Human Regular 40 unit/ Potassium Chloride 20 meq/ Total Parenteral Nutrition/Amino Acids/Dextrose/ Fat Emulsion Intravenous 1,400 ml @ 58.333 mls/ hr TPN CONT IV Last administered on 08/03/19at 21:20; Start 08/03/19 at 22:00; Stop 08/04/19 at 21:59; Status DC Lidocaine HCl (Buffered Lidocaine 1%) 3 ml STK-MED ONCE .ROUTE ; Start 08/03/19 at 13:16; Stop 08/03/19 at 13:16; Status DC Lidocaine HCl (Buffered Lidocaine 1%) 6 ml 1X ONCE INJ Last administered on 08/03/19at 13:45; Start 08/03/19 at 13:30; Stop 08/03/19 at 13:31; Status DC Albumin Human 100 ml @ 100 mls/hr 1X ONCE IV Last administered on 08/03/19at 15:41; Start 08/03/19 at 15:00; Stop 08/03/19 at 15:59; Status DC Albumin Human 50 ml @ 50 mls/hr 1X ONCE IV Last administered on 08/03/19at 15:00; Start 08/03/19 at 15:00; Stop 08/03/19 at 15:59; Status DC Info (PHARMACY MONITORING -- do not chart) 1 each PRN DAILY PRN MC SEE COMMENTS; Start 08/04/19 at 11:30; Status Cancel Info (PHARMACY MONITORING -- do not chart) 1 each PRN DAILY PRN MC SEE COMMENTS; Start 08/04/19 at 11:30; Status UNV Sodium Chloride 100 meq/Potassium Phosphate 10 mmol/ Magnesium Sulfate 12 meq/Calcium Gluconate 15 meq/ Multivitamins 10 ml/Chromium/ Copper/Manganese/ Seleni/Zn 0.5 ml/ Insulin Human Regular 35 unit/ Potassium Chloride 20 meq/ Total Parenteral Nutrition/Amino Acids/Dextrose/ Fat Emulsion Intravenous 1,400 ml @ 58.333 mls/ hr TPN CONT IV Last administered on 08/04/19at 22:10; Start 08/04/19 at 22:00; Stop 08/05/19 at 21:59; Status DC Sodium Chloride 100 meq/Potassium Phosphate 5 mmol/ Magnesium Sulfate 12 meq/Calcium Gluconate 15 meq/ Multivitamins 10 ml/Chromium/ Copper/Manganese/ Seleni/Zn 0.5 ml/ Insulin Human Regular 35 unit/ Potassium Chloride 20 meq/ Total Parenteral Nutrition/Amino Acids/Dextrose/ Fat Emulsion Intravenous 1,400 ml @ 58.333 mls/ hr TPN CONT IV Last administered on 08/05/19at 22:59; Start 08/05/19 at 22:00; Stop 08/06/19 at 21:59; Status DC Sodium Chloride 1,000 ml @ 1,000 mls/hr Q1H PRN IV hypotension; Start 08/06/19 at 08:27; Stop 08/06/19 at 14:26; Status DC Albumin Human 200 ml @ 200 mls/hr 1X PRN PRN IV Hypotension Last administered on 08/06/19at 09:18; Start 08/06/19 at 08:30; Stop 08/06/19 at 14:29; Status DC Sodium Chloride 1,000 ml @ 400 mls/hr Q2H30M PRN IV PATENCY; Start 08/06/19 at 08:27; Stop 08/06/19 at 20:26; Status DC Info (PHARMACY MONITORING -- do not chart) 1 each PRN DAILY PRN MC SEE COMMENTS; Start 08/06/19 at 08:30; Status Cancel Info (PHARMACY MONITORING -- do not chart) 1 each PRN DAILY PRN MC SEE COMMENTS; Start 08/06/19 at 08:30; Stop 08/14/19 at 13:10; Status DC Sodium Chloride 100 meq/Potassium Chloride 40 meq/ Magnesium Sulfate 15 meq/Calcium Gluconate 15 meq/ Multivitamins 10 ml/Chromium/ Copper/Manganese/ Seleni/Zn 0.5 ml/ Insulin Human Regular 35 unit/ Total Parenteral Nutrition/Amino Acids/Dextrose/ Fat Emulsion Intravenous 1,400 ml @ 58.333 mls/ hr TPN CONT IV Last administered on 08/06/19at 22:00; Start 08/06/19 at 22:00; Stop 08/07/19 at 21:59; Status DC Potassium Chloride/Water 100 ml @ 100 mls/hr 1X ONCE IV Last administered on 08/06/19at 17:28; Start 08/06/19 at 14:45; Stop 08/06/19 at 15:44; Status DC Sodium Chloride 100 meq/Potassium Chloride 40 meq/ Magnesium Sulfate 15 meq/Calcium Gluconate 15 meq/ Multivitamins 10 ml/Chromium/ Copper/Manganese/ Seleni/Zn 0.5 ml/ Insulin Human Regular 35 unit/ Total Parenteral Nutrition/Amino Acids/Dextrose/ Fat Emulsion Intravenous 1,400 ml @ 58.333 mls/ hr TPN CONT IV Last administered on 08/07/19at 22:46; Start 08/07/19 at 22:00; Stop 08/08/19 at 21:59; Status DC Sodium Chloride 100 meq/Potassium Chloride 40 meq/ Magnesium Sulfate 20 meq/Calcium Gluconate 15 meq/ Multivitamins 10 ml/Chromium/ Copper/Manganese/ Seleni/Zn 0.5 ml/ Insulin Human Regular 35 unit/ Total Parenteral Nutrition/Amino Acids/Dextrose/ Fat Emulsion Intravenous 1,400 ml @ 58.333 mls/ hr TPN CONT IV Last administered on 08/08/19at 22:31; Start 08/08/19 at 22:00; Stop 08/09/19 at 21:59; Status DC Fentanyl Citrate (Fentanyl 2ml Vial) 50 mcg PRN Q2HR PRN IVP PAIN Last administered on 08/15/19at 13:32; Start 08/08/19 at 21:00; Stop 08/16/19 at 12:53; Status DC Fentanyl Citrate (Fentanyl 2ml Vial) 25 mcg PRN Q2HR PRN IVP PAIN; Start 08/08/19 at 21:00; Stop 08/16/19 at 12:54; Status DC Enoxaparin Sodium (Lovenox 100mg Syringe) 100 mg Q12HR SQ ; Start 08/09/19 at 21:00; Status UNV Amino Acids/ Glycerin/ Electrolytes 1,000 ml @ 75 mls/hr [id number] IV ; Start 08/08/19 at 21:15; Status UNV Sodium Chloride 1,000 ml @ 1,000 mls/hr Q1H PRN IV hypotension; Start 08/09/19 at 07:56; Stop 08/09/19 at 13:55; Status DC Albumin Human 200 ml @ 200 mls/hr 1X PRN PRN IV Hypotension Last administered on 08/09/19at 08:40; Start 08/09/19 at 08:00; Stop 08/09/19 at 13:59; Status DC Sodium Chloride 1,000 ml @ 400 mls/hr Q2H30M PRN IV PATENCY; Start 08/09/19 at 07:56; Stop 08/09/19 at 19:55; Status DC Info (PHARMACY MONITORING -- do not chart) 1 each PRN DAILY PRN MC SEE COMMENTS; Start 08/09/19 at 08:00; Status UNV Info (PHARMACY MONITORING -- do not chart) 1 each PRN DAILY PRN MC SEE COMMENTS; Start 08/09/19 at 08:00; Status UNV Daptomycin 430 mg/ Sodium Chloride 50 ml @ 100 mls/hr Q24H IV Last administered on 08/09/19at 12:35; Start 08/09/19 at 09:00; Stop 08/09/19 at 12:49; Status DC Sodium Chloride 100 meq/Potassium Chloride 40 meq/ Magnesium Sulfate 20 meq/Calcium Gluconate 15 meq/ Multivitamins 10 ml/Chromium/ Copper/Manganese/ Seleni/Zn 0.5 ml/ Insulin Human Regular 35 unit/ Total Parenteral Nutrition/Amino Acids/Dextrose/ Fat Emulsion Intravenous 1,400 ml @ 58.333 mls/ hr TPN CONT IV Last administered on 08/09/19at 21:26; Start 08/09/19 at 22:00; Stop 08/10/19 at 21:59; Status DC Daptomycin 430 mg/ Sodium Chloride 50 ml @ 100 mls/hr Q48H IV ; Start 08/11/19 at 09:00; Stop 08/10/19 at 11:55; Status DC Sodium Chloride 100 meq/Potassium Chloride 40 meq/ Magnesium Sulfate 20 meq/Calcium Gluconate 15 meq/ Multivitamins 10 ml/Chromium/ Copper/Manganese/ Seleni/Zn 0.5 ml/ Insulin Human Regular 35 unit/ Total Parenteral Nutrition/Amino Acids/Dextrose/ Fat Emulsion Intravenous 1,400 ml @ 58.333 mls/ hr TPN CONT IV Last administered on 08/10/19at 22:27; Start 08/10/19 at 22:00; Stop 08/11/19 at 21:59; Status DC Daptomycin 430 mg/ Sodium Chloride 50 ml @ 100 mls/hr Q24H IV Last administered on 08/12/19at 15:07; Start 08/10/19 at 13:00; Stop 08/13/19 at 13:15; Status DC Sodium Chloride 100 meq/Potassium Chloride 40 meq/ Magnesium Sulfate 20 me q/Calcium Gluconate 10 meq/ Multivitamins 10 ml/Chromium/ Copper/Manganese/ Seleni/Zn 0.5 ml/ Insulin Human Regular 35 unit/ Total Parenteral Nutrition/Amino Acids/Dextrose/ Fat Emulsion Intravenous 1,400 ml @ 58.333 mls/ hr TPN CONT IV Last administered on 08/12/19at 00:06; Start 08/11/19 at 22:00; Stop 08/12/19 at 21:59; Status DC Alteplase, Recombinant (Cathflo For Central Catheter Clearance) 1 mg 1X ONCE INT CAT Last administered on 08/12/19at 11:44; Start 08/12/19 at 10:45; Stop 08/12/19 at 10:46; Status DC Ondansetron HCl (Zofran) 4 mg PRN Q6HRS PRN IV NAUSEA/VOMITING; Start 08/15/19 at 07:00; Stop 08/16/19 at 06:59; Status DC Fentanyl Citrate (Fentanyl 2ml Vial) 25 mcg PRN Q5MIN PRN IV MILD PAIN 1-3; Start 08/15/19 at 07:00; Stop 08/16/19 at 06:59; Status DC Fentanyl Citrate (Fentanyl 2ml Vial) 50 mcg PRN Q5MIN PRN IV MODERATE TO SEVERE PAIN Last administered on 08/15/19at 10:17; Start 08/15/19 at 07:00; Stop 08/16/19 at 06:59; Status DC Ringer's Solution 1,000 ml @ 30 mls/hr Q24H IV ; Start 08/15/19 at 07:00; Stop 08/15/19 at 18:59; Status DC Lidocaine HCl (Xylocaine-Mpf 1% 2ml Vial) 2 ml PRN 1X PRN ID PRIOR TO IV START; Start 08/15/19 at 07:00; Stop 08/16/19 at 06:59; Status DC Prochlorperazine Edisylate (Compazine) 5 mg PACU PRN PRN IV NAUSEA, MRX1; Start 08/15/19 at 07:00; Stop 08/16/19 at 06:59; Status DC Sodium Acetate 50 meq/Potassium Acetate 55 meq/ Magnesium Sulfate 20 meq/Calcium Gluconate 10 meq/ Multivitamins 10 ml/Chromium/ Copper/Manganese/ Seleni/Zn 0.5 ml/ Insulin Human Regular 35 unit/ Total Parenteral Nutrition/Amino Acids/Dextrose/ Fat Emulsion Intravenous 1,400 ml @ 58.333 mls/ hr TPN CONT IV ; Start 08/12/19 at 22:00; Stop 08/12/19 at 14:15; Status DC Sodium Acetate 50 meq/Potassium Acetate 55 meq/ Magnesium Sulfate 20 meq/Calcium Gluconate 10 meq/ Multivitamins 10 ml/Chromium/ Copper/Manganese/ Seleni/Zn 0.5 ml/ Insulin Human Regular 35 unit/ Total Parenteral Nutrition/Amino Acids/Dextrose/ Fat Emulsion Intravenous 1,800 ml @ 75 mls/hr TPN CONT IV Last administered on 08/12/19at 22:38; Start 08/12/19 at 22:00; Stop 08/13/19 at 21:59; Status DC Sodium Chloride 1,000 ml @ 1,000 mls/hr Q1H PRN IV hypotension; Start 08/12/19 at 15:31; Stop 08/12/19 at 21:30; Status DC Diphenhydramine HCl (Benadryl) 25 mg 1X PRN PRN IV ITCHING; Start 08/12/19 at 15:45; Stop 08/13/19 at 15:44; Status DC Diphenhydramine HCl (Benadryl) 25 mg 1X PRN PRN IV ITCHING; Start 08/12/19 at 15:45; Stop 08/13/19 at 15:44; Status DC Sodium Chloride 1,000 ml @ 400 mls/hr Q2H30M PRN IV PATENCY; Start 08/12/19 at 15:31; Stop 08/13/19 at 03:30; Status DC Info (PHARMACY MONITORING -- do not chart) 1 each PRN DAILY PRN MC SEE COMMENTS; Start 08/12/19 at 15:45; Stop 09/13/19 at 14:14; Status DC Sodium Acetate 50 meq/Potassium Acetate 55 meq/ Magnesium Sulfate 20 meq/Calcium Gluconate 10 meq/ Multivitamins 10 ml/Chromium/ Copper/Manganese/ Seleni/Zn 0.5 ml/ Insulin Human Regular 35 unit/ Total Parenteral Nutrition/Amino Acids/Dextrose/ Fat Emulsion Intravenous 1,800 ml @ 75 mls/hr TPN CONT IV Last administered on 08/13/19at 22:03; Start 08/13/19 at 22:00; Stop 08/14/19 at 21:59; Status DC Daptomycin 430 mg/ Sodium Chloride 50 ml @ 100 mls/hr Q24H IV Last administered on 08/18/19at 13:00; Start 08/13/19 at 13:00; Stop 08/18/19 at 20:58; Status DC Heparin Sodium (Porcine) 1000 unit/Sodium Chloride 1,001 ml @ 1,001 mls/hr 1X ONCE IRR ; Start 08/15/19 at 06:00; Stop 08/15/19 at 06:59; Status DC Potassium Acetate 55 meq/Magnesium Sulfate 20 meq/ Calcium Gluconate 10 meq/ Multivitamins 10 ml/Chromium/ Copper/Manganese/ Seleni/Zn 0.5 ml/ Insulin Human Regular 35 unit/ Total Parenteral Nutrition/Amino Acids/Dextrose/ Fat Emulsion Intravenous 1,920 ml @ 80 mls/hr TPN CONT IV Last administered on 08/14/19at 22:10; Start 08/14/19 at 22:00; Stop 08/15/19 at 21:59; Status DC Dexamethasone Sodium Phosphate (Decadron) 4 mg STK-MED ONCE .ROUTE ; Start 08/15/19 at 10:56; Stop 08/15/19 at 10:57; Status DC Ondansetron HCl (Zofran) 4 mg STK-MED ONCE .ROUTE ; Start 08/15/19 at 10:56; Stop 08/15/19 at 10:57; Status DC Rocuronium [place] (Zemuron) 50 mg STK-MED ONCE .ROUTE ; Start 08/15/19 at 10:56; Stop 08/15/19 at 10:57; Status DC Fentanyl Citrate (Fentanyl 2ml Vial) 100 mcg STK-MED ONCE .ROUTE ; Start 08/15/19 at 10:56; Stop 08/15/19 at 10:57; Status DC Bupivacaine HCl/ Epinephrine Bitart (Sensorcain-Epi 0.5%-1:[id number] Mpf) 30 ml STK-MED ONCE .ROUTE Last administered on 08/15/19at 12:01; Start 08/15/19 at 10:58; Stop 08/15/19 at 10:58; Status DC Cellulose (Surgicel Hemostat 2x14) 1 each STK-MED ONCE .ROUTE ; Start 08/15/19 at 10:58; Stop 08/15/19 at 10:59; Status DC Iohexol (Omnipaque 300 Mg/ml) 50 ml STK-MED ONCE .ROUTE ; Start 08/15/19 at 10:58; Stop 08/15/19 at 10:59; Status DC Cellulose (Surgicel Hemostat 4x8) 1 each STK-MED ONCE .ROUTE ; Start 08/15/19 at 10:58; Stop 08/15/19 at 10:59; Status DC Bisacodyl (Dulcolax Supp) 10 mg STK-MED ONCE .ROUTE ; Start 08/15/19 at 10:59; Stop 08/15/19 at 10:59; Status DC Heparin Sodium (Porcine) 1000 unit/Sodium Chloride 1,001 ml @ 1,001 mls/hr 1X ONCE IRR ; Start 08/15/19 at 12:00; Stop 08/15/19 at 12:59; Status DC Propofol 20 ml @ As Directed STK-MED ONCE IV ; Start 08/15/19 at 11:05; Stop 08/15/19 at 11:05; Status DC Sevoflurane (Ultane) 90 ml STK-MED ONCE IH ; Start 08/15/19 at 11:05; Stop 08/15/19 at 11:05; Status DC Sevoflurane (Ultane) 60 ml STK-MED ONCE IH ; Start 08/15/19 at 12:26; Stop 08/15/19 at 12:27; Status DC Propofol 20 ml @ As Directed STK-MED ONCE IV ; Start 08/15/19 at 12:26; Stop 08/15/19 at 12:27; Status DC Phenylephrine HCl (PHENYLEPHRINE in 0.9% NACL PF) 1 mg STK-MED ONCE IV ; Start 08/15/19 at 12:34; Stop 08/15/19 at 12:34; Status DC Heparin Sodium (Porcine) (Heparin Sodium) 5,000 unit Q12HR SQ Last administered on 08/24/19at 20:57; Start 08/15/19 at 21:00; Stop 08/25/19 at 09:59; Status DC Sodium Chloride (Normal Saline Flush) 3 ml QSHIFT PRN IV AFTER MEDS AND BLOOD DRAWS; Start 08/15/19 at 13:45; Status Cancel Naloxone HCl (Narcan) 0.4 mg PRN Q2MIN PRN IV SEE INSTRUCTIONS Last administered on 09/24/19at 15:15; Start 08/15/19 at 13:45; Stop 10/19/19 at 16:00; Status DC Sodium Chloride 1,000 ml @ 25 mls/hr Q24H IV Last administered on 09/13/19at 13:37; Start 08/15/19 at 13:37; Stop 09/16/19 at 13:09; Status DC Naloxone HCl (Narcan) 0.4 mg PRN Q2MIN PRN IV SEE INSTRUCTIONS; Start 08/15/19 at 14:30; Status UNV Sodium Chloride 1,000 ml @ 25 mls/hr Q24H IV ; Start 08/15/19 at 14:30; Status UNV Hydromorphone HCl 30 ml @ 0 mls/hr CONT PRN PRN IV PER PROTOCOL Last administered on 08/20/19at 16:08; Start 08/15/19 at 14:30; Stop 08/22/19 at 08:55; Status DC Potassium Acetate 55 meq/Magnesium Sulfate 20 meq/ Calcium Gluconate 10 meq/ Multivitamins 10 ml/Chromium/ Copper/Manganese/ Seleni/Zn 0.5 ml/ Insulin Human Regular 35 unit/ Total Parenteral Nutrition/Amino Acids/Dextrose/ Fat Emulsion Intravenous 1,920 ml @ 80 mls/hr TPN CONT IV Last administered on 08/15/19at 22:01; Start 08/15/19 at 22:00; Stop 08/16/19 at 21:59; Status DC Bumetanide (Bumex) 2 mg [id number] IV Last administered on 08/19/19at 13:50; Start 08/16/19 at 14:00; Stop 08/20/19 at 14:10; Status DC Meropenem 1 gm/ Sodium Chloride 100 ml @ 200 mls/hr Q8HRS IV Last administered on 09/09/19at 05:53; Start 08/16/19 at 14:00; Stop 09/09/19 at 09:31; Status DC Potassium Acetate 55 meq/Magnesium Sulfate 20 meq/ Calcium Gluconate 10 meq/ Multivitamins 10 ml/Chromium/ Copper/Manganese/ Seleni/Zn 0.5 ml/ Insulin Human Regular 35 unit/ Total Parenteral Nutrition/Amino Acids/Dextrose/ Fat Emulsion Intravenous 1,920 ml @ 80 mls/hr TPN CONT IV Last administered on 08/16/19at 22:02; Start 08/16/19 at 22:00; Stop 08/17/19 at 21:59; Status DC Hydromorphone HCl (Dilaudid Standard [employer]) 12 mg STK-MED ONCE IV ; Start 08/15/19 at 14:35; Stop 08/16/19 at 13:53; Status DC Artificial Tears (Artificial Tears) 1 drop PRN Q15MIN PRN OU DRY EYE Last administered on 10/11/19at 21:17; Start 08/17/19 at 05:30 Hydromorphone HCl (Dilaudid Standard [employer]OR) 12 mg STK-MED ONCE IV ; Start 08/16/19 at 12:05; Stop 08/17/19 at 09:15; Status DC Potassium Acetate 65 meq/Magnesium Sulfate 20 meq/ Calcium Gluconate 10 meq/ Multivitamins 10 ml/Chromium/ Copper/Manganese/ Seleni/Zn 0.5 ml/ Insulin Human Regular 30 unit/ Total Parenteral Nutrition/Amino Acids/Dextrose/ Fat Emulsion Intravenous 1,920 ml @ 80 mls/hr TPN CONT IV Last administered on 08/17/19at 22:22; Start 08/17/19 at 22:00; Stop 08/18/19 at 21:59; Status DC Cyclobenzaprine HCl (Flexeril) 10 mg PRN Q6HRS PRN PO MUSCLE SPASMS Last administered on 10/28/19at 19:12; Start 08/18/19 at 10:45 Potassium Acetate 55 meq/Magnesium Sulfate 20 meq/ Calcium Gluconate 10 meq/ Multivitamins 10 ml/Chromium/ Copper/Manganese/ Seleni/Zn 0.5 ml/ Insulin Human Regular 30 unit/ Total Parenteral Nutrition/Amino Acids/Dextrose/ Fat Emulsion Intravenous 1,920 ml @ 80 mls/hr TPN CONT IV Last administered on 08/19/19at 01:00; Start 08/18/19 at 22:00; Stop 08/19/19 at 21:59; Status DC Magnesium Sulfate 50 ml @ 25 mls/hr 1X ONCE IV Last administered on 08/18/19at 17:18; Start 08/18/19 at 12:45; Stop 08/18/19 at 14:44; Status DC Potassium Chloride/Water 100 ml @ 100 mls/hr 1X ONCE IV Last administered on 08/19/19at 11:27; Start 08/19/19 at 12:00; Stop 08/19/19 at 12:59; Status DC Hydromorphone HCl (Dilaudid Standard [employer]OR) 12 mg STK-MED ONCE IV ; Start 08/17/19 at 10:50; Stop 08/19/19 at 11:02; Status DC Hydromorphone HCl (Dilaudid Standard [employer]OR) 12 mg STK-MED ONCE IV ; Start 08/18/19 at 13:47; Stop 08/19/19 at 11:03; Status DC Potassium Acetate 30 meq/Magnesium Sulfate 20 meq/ Calcium Gluconate 10 meq/ Multivitamins 10 ml/Chromium/ Copper/Manganese/ Seleni/Zn 0.5 ml/ Insulin Human Regular 30 unit/ Potassium Chloride 30 meq/ Total Parenteral Nutrition/Amino Acids/Dextrose/ Fat Emulsion Intravenous 1,920 ml @ 80 mls/hr TPN CONT IV Last administered on 08/19/19at 22:34; Start 08/19/19 at 22:00; Stop 08/20/19 at 21:59; Status DC Potassium Chloride/Water 100 ml @ 100 mls/hr Q1H IV Last administered on 08/20/19at 13:05; Start 08/20/19 at 07:00; Stop 08/20/19 at 10:59; Status DC Magnesium Sulfate 50 ml @ 25 mls/hr 1X ONCE IV Last administered on 08/20/19at 10:34; Start 08/20/19 at 10:30; Stop 08/20/19 at 12:29; Status DC Potassium Chloride 75 meq/ Magnesium Sulfate 20 meq/Calcium Gluconate 10 meq/ Multivitamins 10 ml/Chromium/ Copper/Manganese/ Seleni/Zn 0.5 ml/ Insulin Human Regular 30 unit/ Total Parenteral Nutrition/Amino Acids/Dextrose/ Fat Emulsion Intravenous 1,920 ml @ 80 mls/hr TPN CONT IV Last administered on 08/20/19at 21:51; Start 08/20/19 at 22:00; Stop 08/21/19 at 22:00; Status DC Potassium Chloride 75 meq/ Magnesium Sulfate 20 meq/Calcium Gluconate 10 meq/ Multivitamins 10 ml/Chromium/ Copper/Manganese/ Seleni/Zn 0.5 ml/ Insulin Human Regular 25 unit/ Total Parenteral Nutrition/Amino Acids/Dextrose/ Fat Emulsion Intravenous 1,920 ml @ 80 mls/hr TPN CONT IV Last administered on 08/21/19at 22:04; Start 08/21/19 at 22:00; Stop 08/22/19 at 21:59; Status DC Hydromorphone HCl (Dilaudid) 0.4 mg PRN Q4HRS PRN IVP PAIN Last administered on 08/22/19at 10:57; Start 08/22/19 at 09:00; Stop 08/22/19 at 18:59; Status DC Micafungin Sodium 100 mg/Dextrose 100 ml @ 100 mls/hr Q24H IV Last administered on 09/13/19at 12:17; Start 08/22/19 at 11:00; Stop 09/14/19 at 09:59; Status DC Daptomycin 485 mg/ Sodium Chloride 50 ml @ 100 mls/hr Q24H IV Last administered on 08/29/19at 13:10; Start 08/22/19 at 11:00; Stop 08/30/19 at 07:44; Status DC Potassium Chloride 75 meq/ Magnesium Sulfate 15 meq/Calcium Gluconate 8 meq/ Multivitamins 10 ml/Chromium/ Copper/Manganese/ Seleni/Zn 0.5 ml/ Insulin Human Regular 25 unit/ Total Parenteral Nutrition/Amino Acids/Dextrose/ Fat Emulsion Intravenous 1,920 ml @ 80 mls/hr TPN CONT IV Last administered on 08/22/19at 23:08; Start 08/22/19 at 22:00; Stop 08/23/19 at 21:59; Status DC Haloperidol Lactate (Haldol Inj) 3 mg 1X ONCE IVP Last administered on 08/22/19at 14:37; Start 08/22/19 at 14:30; Stop 08/22/19 at 14:31; Status DC Hydromorphone HCl (Dilaudid) 1 mg PRN Q4HRS PRN IVP PAIN Last administered on 09/05/19at 06:25; Start 08/22/19 at 19:00; Stop 09/05/19 at 17:10; Status DC Potassium Chloride 75 meq/ Magnesium Sulfate 15 meq/Calcium Gluconate 8 meq/ Multivitamins 10 ml/Chromium/ Copper/Manganese/ Seleni/Zn 0.5 ml/ Insulin Human Regular 20 unit/ Total Parenteral Nutrition/Amino Acids/Dextrose/ Fat Emulsion Intravenous 1,920 ml @ 80 mls/hr TPN CONT IV Last administered on 08/23/19at 22:10; Start 08/23/19 at 22:00; Stop 08/24/19 at 21:59; Status DC Lidocaine HCl (Buffered Lidocaine 1%) 3 ml STK-MED ONCE .ROUTE ; Start 08/24/19 at 11:31; Stop 08/24/19 at 11:31; Status DC Lidocaine HCl (Buffered Lidocaine 1%) 3 ml STK-MED ONCE .ROUTE ; Start 08/24/19 at 12:28; Stop 08/24/19 at 12:29; Status DC Lidocaine HCl (Buffered Lidocaine 1%) 6 ml 1X ONCE INJ Last administered on 08/24/19at 12:53; Start 08/24/19 at 12:45; Stop 08/24/19 at 12:46; Status DC Potassium Chloride 75 meq/ Magnesium Sulfate 15 meq/Calcium Gluconate 8 meq/ Multivitamins 10 ml/Chromium/ Copper/Manganese/ Seleni/Zn 0.5 ml/ Insulin Human Regular 20 unit/ Total Parenteral Nutrition/Amino Acids/Dextrose/ Fat Emulsion Intravenous 1,920 ml @ 80 mls/hr TPN CONT IV Last administered on 08/24/19at 22:00; Start 08/24/19 at 22:00; Stop 08/25/19 at 21:59; Status DC Potassium Chloride 75 meq/ Magnesium Sulfate 15 meq/Calcium Gluconate 8 meq/ Multivitamins 10 ml/Chromium/ Copper/Manganese/ Seleni/Zn 0.5 ml/ Insulin Human Regular 15 unit/ Total Parenteral Nutrition/Amino Acids/Dextrose/ Fat Emulsion Intravenous 1,920 ml @ 80 mls/hr TPN CONT IV Last administered on 08/25/19at 22:28; Start 08/25/19 at 22:00; Stop 08/26/19 at 21:59; Status DC Vecuronium [place] (Norcuron Bolus) 6 mg PRN Q6HRS PRN IV VENT ASYNCHRONY; Start 08/25/19 at 19:15; Stop 08/25/19 at 19:35; Status DC Bumetanide (Bumex) 2 mg 1X ONCE IV Last administered on 08/25/19at 22:09; Start 08/25/19 at 19:45; Stop 08/25/19 at 19:46; Status DC Lidocaine HCl (Buffered Lidocaine 1%) 3 ml STK-MED ONCE .ROUTE ; Start 08/26/19 at 07:59; Stop 08/26/19 at 07:59; Status DC Midazolam HCl (Versed) 5 mg STK-MED ONCE .ROUTE ; Start 08/26/19 at 08:36; Stop 08/26/19 at 08:36; Status DC Fentanyl Citrate (Fentanyl 5ml Vial) 250 mcg STK-MED ONCE .ROUTE ; Start 08/26/19 at 08:36; Stop 08/26/19 at 08:37; Status DC Lidocaine HCl (Buffered Lidocaine 1%) 3 ml 1X ONCE IJ Last administered on 08/26/19at 09:30; Start 08/26/19 at 09:15; Stop 08/26/19 at 09:16; Status DC Midazolam HCl (Versed) 5 mg 1X ONCE IV Last administered on 08/26/19at 09:30; Start 08/26/19 at 09:15; Stop 08/26/19 at 09:16; Status DC Fentanyl Citrate (Fentanyl 5ml Vial) 250 mcg 1X ONCE IV Last administered on 08/26/19at 09:30; Start 08/26/19 at 09:15; Stop 08/26/19 at 09:16; Status DC Bumetanide (Bumex) 2 mg DAILY IV Last administered on 09/05/19at 08:07; Start 08/26/19 at 10:00; Stop 09/05/19 at 17:15; Status DC Potassium Chloride 75 meq/ Magnesium Sulfate 15 meq/ Multivitamins 10 ml/Chromium/ Copper/Manganese/ Seleni/Zn 0.5 ml/ Insulin Human Regular 15 unit/ Total Parenteral Nutrition/Amino Acids/Dextrose/ Fat Emulsion Intravenous 1,920 ml @ 80 mls/hr TPN CONT IV Last administered on 08/26/19at 21:59; Start 08/26/19 at 22:00; Stop 08/27/19 at 21:59; Status DC Metoclopramide HCl (Reglan Vial) 10 mg PRN Q3HRS PRN IVP NAUSEA/VOMITING-3rd choice Last administered on 09/01/19at 04:25; Start 08/27/19 at 16:45 Potassium Chloride 75 meq/ Magnesium Sulfate 15 meq/ Multivitamins 10 ml/Chromium/ Copper/Manganese/ Seleni/Zn 0.5 ml/ Insulin Human Regular 15 unit/ Total Parenteral Nutrition/Amino Acids/Dextrose/ Fat Emulsion Intravenous 1,920 ml @ 80 mls/hr TPN CONT IV Last administered on 08/27/19at 22:41; Start 08/27/19 at 22:00; Stop 08/28/19 at 21:59; Status DC Magnesium Sulfate 50 ml @ 25 mls/hr 1X ONCE IV Last administered on 08/28/19at 10:44; Start 08/28/19 at 09:00; Stop 08/28/19 at 10:59; Status DC Potassium Chloride/Water 100 ml @ 100 mls/hr 1X ONCE IV Last administered on 08/28/19at 09:37; Start 08/28/19 at 09:00; Stop 08/28/19 at 09:59; Status DC Duloxetine HCl (Cymbalta) 30 mg DAILY PO Last administered on 08/29/19at 09:48; Start 08/28/19 at 14:00; Stop 08/31/19 at 10:25; Status DC Potassium Chloride 80 meq/ Magnesium Sulfate 20 meq/ Multivitamins 10 ml/Chromium/ Copper/Manganese/ Seleni/Zn 0.5 ml/ Insulin Human Regular 15 unit/ Total Parenteral Nutrition/Amino Acids/Dextrose/ Fat Emulsion Intravenous 1,920 ml @ 80 mls/hr TPN CONT IV Last administered on 08/28/19at 21:42; Start 08/28/19 at 22:00; Stop 08/29/19 at 21:59; Status DC Potassium Chloride 80 meq/ Magnesium Sulfate 20 meq/ Multivitamins 10 ml/Chromium/ Copper/Manganese/ Seleni/Zn 0.5 ml/ Insulin Human Regular 15 unit/ Total Parenteral Nutrition/Amino Acids/Dextrose/ Fat Emulsion Intravenous 1,920 ml @ 80 mls/hr TPN CONT IV Last administered on 08/29/19at 22:20; Start 08/29/19 at 22:00; Stop 08/30/19 at 21:59; Status DC Lidocaine HCl (Buffered Lidocaine 1%) 3 ml STK-MED ONCE .ROUTE ; Start 08/30/19 at 09:54; Stop 08/30/19 at 09:55; Status DC Hydromorphone HCl (Dilaudid Standard [employer]) 12 mg STK-MED ONCE IV ; Start 08/19/19 at 15:50; Stop 08/30/19 at 11:24; Status DC Potassium Chloride 80 meq/ Magnesium Sulfate 20 meq/ Multivitamins 10 ml/Chromium/ Copper/Manganese/ Seleni/Zn 0.5 ml/ Insulin Human Regular 15 unit/ Total Parenteral Nutrition/Amino Acids/Dextrose/ Fat Emulsion Intravenous 1,920 ml @ 80 mls/hr TPN CONT IV Last administered on 08/30/19at 21:40; Start 08/30/19 at 22:00; Stop 08/31/19 at 21:59; Status DC Lidocaine HCl (Buffered Lidocaine 1%) 6 ml 1X ONCE INJ Last administered on 08/30/19at 14:15; Start 08/30/19 at 14:15; Stop 08/30/19 at 14:16; Status DC Potassium Chloride 80 meq/ Magnesium Sulfate 20 meq/ Multivitamins 10 ml/Chromium/ Copper/Manganese/ Seleni/Zn 1 ml/ Insulin Human Regular 15 unit/ Total Parenteral Nutrition/Amino Acids/Dextrose/ Fat Emulsion Intravenous 1,920 ml @ 80 mls/hr TPN CONT IV Last administered on 08/31/19at 22:04; Start 08/31/19 at 22:00; Stop 09/01/19 at 21:59; Status DC Potassium Chloride/Water 100 ml @ 100 mls/hr 1X ONCE IV Last administered on 09/01/19at 11:34; Start 09/01/19 at 11:00; Stop 09/01/19 at 11:59; Status DC Potassium Chloride 90 meq/ Magnesium Sulfate 20 meq/ Multivitamins 10 ml/Chromium/ Copper/Manganese/ Seleni/Zn 1 ml/ Insulin Human Regular 15 unit/ Total Parenteral Nutrition/Amino Acids/Dextrose/ Fat Emulsion Intravenous 1,920 ml @ 80 mls/hr TPN CONT IV Last administered on 09/01/19at 22:57; Start 09/01/19 at 22:00; Stop 09/02/19 at 21:59; Status DC Potassium Chloride 90 meq/ Magnesium Sulfate 20 meq/ Multivitamins 10 ml/Chromium/ Copper/Manganese/ Seleni/Zn 1 ml/ Insulin Human Regular 15 unit/ Total Parenteral Nutrition/Amino Acids/Dextrose/ Fat Emulsion Intravenous 1,920 ml @ 80 mls/hr TPN CONT IV Last administered on 09/02/19at 22:48; Start 09/02/19 at 22:00; Stop 09/03/19 at 21:59; Status DC Potassium Chloride 90 meq/ Magnesium Sulfate 20 meq/ Multivitamins 10 ml/Chromium/ Copper/Manganese/ Seleni/Zn 1 ml/ Insulin Human Regular 15 unit/ Total Parenteral Nutrition/Amino Acids/Dextrose/ Fat Emulsion Intravenous 1,890 ml @ 78.75 mls/ hr TPN CONT IV Last administered on 09/03/19at 22:15; Start 09/03/19 at 22:00; Stop 09/04/19 at 21:59; Status DC Linezolid/Dextrose 300 ml @ 300 mls/hr Q12HR IV Last administered on 09/06/19at 21:08; Start 09/04/19 at 09:00; Stop 09/07/19 at 08:11; Status DC Daptomycin 450 mg/ Sodium Chloride 50 ml @ 100 mls/hr Q24H IV Last administered on 09/07/19at 09:25; Start 09/04/19 at 09:00; Stop 09/08/19 at 08:30; Status DC Potassium Chloride 90 meq/ Magnesium Sulfate 20 meq/ Multivitamins 10 ml/Chromium/ Copper/Manganese/ Seleni/Zn 1 ml/ Insulin Human Regular 15 unit/ Total Parenteral Nutrition/Amino Acids/Dextrose/ Fat Emulsion Intravenous 1,890 ml @ 78.75 mls/ hr TPN CONT IV Last administered on 09/04/19at 21:34; Start 09/04/19 at 22:00; Stop 09/05/19 at 21:59; Status DC Lorazepam (Ativan Inj) 2 mg STK-MED ONCE .ROUTE ; Start 09/04/19 at 14:58; Stop 09/04/19 at 14:58; Status DC Metoprolol Tartrate (Lopressor Vial) 5 mg 1X ONCE IVP Last administered on 09/04/19at 15:31; Start 09/04/19 at 15:15; Stop 09/04/19 at 15:16; Status DC Lorazepam (Ativan Inj) 2 mg 1X ONCE IVP Last administered on 09/04/19at 15:30; Start 09/04/19 at 15:15; Stop 09/04/19 at 15:16; Status DC Enoxaparin Sodium (Lovenox 40mg Syringe) 40 mg Q24H SQ Last administered on 09/23/19at 17:44; Start 09/04/19 at 17:00; Stop 09/25/19 at 06:50; Status DC Lorazepam (Ativan Inj) 1 mg PRN Q4HRS PRN IVP ANXIETY / AGITATION MILD-MOD Last administered on 09/18/19at 15:55; Start 09/04/19 at 19:15; Stop 09/20/19 at 11:45; Status DC Lorazepam (Ativan Inj) 2 mg PRN Q4HRS PRN IVP ANXIETY / AGITATION SEVERE Last administered on 09/19/19at 07:55; Start 09/04/19 at 19:15; Stop 09/20/19 at 11:45; Status DC Fentanyl Citrate (Fentanyl 2ml Vial) 50 mcg PRN Q4HRS PRN IVP SEVERE PAIN Last administered on 10/01/19at 05:15; Start 09/05/19 at 13:15; Stop 10/02/19 at 09:29; Status DC Fentanyl Citrate (Fentanyl 2ml Vial) 25 mcg PRN Q4HRS PRN IVP MODERATE PAIN Last administered on 10/01/19at 00:27; Start 09/05/19 at 13:15; Stop 10/02/19 at 09:30; Status DC Potassium Chloride 90 meq/ Magnesium Sulfate 20 meq/ Multivitamins 10 m l/Chromium/ Copper/Manganese/ Seleni/Zn 1 ml/ Insulin Human Regular 15 unit/ Total Parenteral Nutrition/Amino Acids/Dextrose/ Fat Emulsion Intravenous 1,890 ml @ 78.75 mls/ hr TPN CONT IV Last administered on 09/05/19at 22:18; Start 09/05/19 at 22:00; Stop 09/06/19 at 21:59; Status DC Furosemide (Lasix) 40 mg 1X ONCE IVP Last administered on 09/05/19at 21:51; Start 09/05/19 at 21:45; Stop 09/05/19 at 21:48; Status DC Albumin Human 100 ml @ 100 mls/hr 1X PRN PRN IV SEE COMMENTS; Start 09/06/19 at 01:30 Furosemide (Lasix) 40 mg [id number] IVP Last administered on 09/21/19at 08:04; Start 09/06/19 at 14:00; Stop 09/21/19 at 13:07; Status DC Potassium Chloride 90 meq/ Magnesium Sulfate 20 meq/ Multivitamins 10 ml/Chromium/ Copper/Manganese/ Seleni/Zn 1 ml/ Insulin Human Regular 15 unit/ Total Parenteral Nutrition/Amino Acids/Dextrose/ Fat Emulsion Intravenous 1,800 ml @ 75 mls/hr TPN CONT IV Last administered on 09/06/19at 22:31; Start 09/06/19 at 22:00; Stop 09/07/19 at 21:59; Status DC Potassium Chloride 90 meq/ Magnesium Sulfate 20 meq/ Multivitamins 10 ml/Chromium/ Copper/Manganese/ Seleni/Zn 1 ml/ Insulin Human Regular 15 unit/ To anthony Parenteral Nutrition/Amino Acids/Dextrose/ Fat Emulsion Intravenous 1,800 ml @ 75 mls/hr TPN CONT IV Last administered on 09/07/19at 22:28; Start 09/07/19 at 22:00; Stop 09/08/19 at 21:59; Status DC Potassium Chloride 110 meq/ Magnesium Sulfate 20 meq/ Multivitamins 10 ml/Chromium/ Copper/Manganese/ Seleni/Zn 1 ml/ Insulin Human Regular 15 unit/ Total Parenteral Nutrition/Amino Acids/Dextrose/ Fat Emulsion Intravenous 1,800 ml @ 75 mls/hr TPN CONT IV Last administered on 09/08/19at 22:01; Start at 22:00; Stop 09/09/19 at 21:59; Status DC Saliva Substitute (Biotene Moisturizing Mouth) 2 spray PRN Q15MIN PRN PO DRY MOUTH; Start 09/08/19 at 11:00 Potassium Chloride 110 meq/ Magnesium Sulfate 20 meq/ Multivitamins 10 ml/Chromium/ Copper/Manganese/ Seleni/Zn 1 ml/ Insulin Human Regular 15 unit/ Total Parenteral Nutrition/Amino Acids/Dextrose/ Fat Emulsion Intravenous 1,800 ml @ 75 mls/hr TPN CONT IV Last administered on 09/09/19at 22:21; Start 09/09/19 at 22:00; Stop 09/10/19 at 21:59; Status DC Potassium Chloride 110 meq/ Magnesium Sulfate 20 meq/ Multivitamins 10 ml/Chromium/ Copper/Manganese/ Seleni/Zn 1 ml/ Insulin Human Regular 15 unit/ Total Parenteral Nutrition/Amino Acids/Dextrose/ Fat Emulsion Intravenous 1,800 ml @ 75 mls/hr TPN CONT IV Last administered on 09/10/19at 22:04; Start 09/10/19 at 22:00; Stop 09/11/19 at 21:59; Status DC Potassium Chloride 110 meq/ Magnesium Sulfate 20 meq/ Multivitamins 10 ml/Chromium/ Copper/Manganese/ Seleni/Zn 1 ml/ Insulin Human Regular 15 unit/ T otal Parenteral Nutrition/Amino Acids/Dextrose/ Fat Emulsion Intravenous 1,800 ml @ 75 mls/hr TPN CONT IV Last administered on 09/11/19at 22:48; Start 09/11/19 at 22:00; Stop 09/12/19 at 21:59; Status DC Potassium Chloride 70 meq/ Magnesium Sulfate 20 meq/ Multivitamins 10 ml/Chromium/ Copper/Manganese/ Seleni/Zn 1 ml/ Insulin Human Regular 15 unit/ Total Parenteral Nutrition/Amino Acids/Dextrose/ Fat Emulsion Intravenous 1,800 ml @ 75 mls/hr TPN CONT IV Last administered on 09/12/19at 21:39; Start at 22:00; Stop 09/13/19 at 21:59; Status DC Meropenem 500 mg/ Sodium Chloride 50 ml @ 100 mls/hr Q6HRS IV Last administ ered on 09/14/19at 06:02; Start 09/12/19 at 18:00; Stop 09/14/19 at 09:59; Status DC Barium Sulfate (Varibar Thin Liquid Apple) 148 gm 1X ONCE PO ; Start 09/13/19 at 11:45; Stop 09/13/19 at 11:49; Status DC Potassium Chloride 70 meq/ Magnesium Sulfate 20 meq/ Multivitamins 10 ml/Chromium/ Copper/Manganese/ Seleni/Zn 1 ml/ Insulin Human Regular 15 unit/ Total Parenteral Nutrition/Amino Acids/Dextrose/ Fat Emulsion Intravenous 1,800 ml @ 75 mls/hr TPN CONT IV Last administered on 09/13/19at 22:27; Start 09/13/19 at 22:00; Stop 09/14/19 at 21:59; Status DC Piperacillin Sod/ Tazobactam Sod 3.375 gm/Sodium Chloride 50 ml @ 100 mls/hr Q6HRS IV Last administered on 09/22/19at 06:10; Start 09/14/19 at 12:00; Stop 09/22/19 at 07:26; Status DC Potassium Chloride 70 meq/ Magnesium Sulfate 20 meq/ Multivitamins 10 ml/Chromium/ Copper/Manganese/ Seleni/Zn 1 ml/ Insulin Human Regular 15 unit/ Total Parenteral Nutrition/Amino Acids/Dextrose/ Fat Emulsion Intravenous 1,800 ml @ 75 mls/hr TPN CONT IV Last administered on 09/14/19at 22:03; Start 09/14/19 at 22:00; Stop 09/15/19 at 21:59; Status DC Potassium Chloride 70 meq/ Magnesium Sulfate 20 meq/ Multivitamins 10 ml/Chromium/ Copper/Manganese/ Seleni/Zn 1 ml/ Insulin Human Regular 15 unit/ Total Parenteral Nutrition/Amino Acids/Dextrose/ Fat Emulsion Intravenous 1,800 ml @ 75 mls/hr TPN CONT IV Last administered on 09/15/19at 22:33; Start 09/15/19 at 22:00; Stop 09/16/19 at 21:59; Status DC Potassium Chloride 70 meq/ Magnesium Sulfate 20 meq/ Multivitamins 10 ml/Ch romium/ Copper/Manganese/ Seleni/Zn 1 ml/ Insulin Human Regular 15 unit/ Total Parenteral Nutrition/Amino Acids/Dextrose/ Fat Emulsion Intravenous 1,800 ml @ 75 mls/hr TPN CONT IV Last administered on 09/16/19at 23:13; Start 09/16/19 at 22:00; Stop 09/17/19 at 21:59; Status DC Potassium Chloride 80 meq/ Magnesium Sulfate 20 meq/ Multivitamins 10 ml/Chromium/ Copper/Manganese/ Seleni/Zn 1 ml/ Insulin Human Regular 15 unit/ Total Parenteral Nutrition/Amino Acids/Dextrose/ Fat Emulsion Intravenous 1,800 ml @ 75 mls/hr TPN CONT IV Last administered on 09/17/19at 22:30; Start 09/17/19 at 22:00; Stop 09/18/19 at 21:59; Status DC Potassium Chloride 80 meq/ Magnesium Sulfate 20 meq/ Multivitamins 10 ml/Chromium/ Copper/Manganese/ Seleni/Zn 1 ml/ Insulin Human Regular 15 unit/ Total Parenteral Nutrition/Amino Acids/Dextrose/ Fat Emulsion Intravenous 1,800 ml @ 75 mls/hr TPN CONT IV Last administered on 09/18/19at 21:54; Start 09/18/19 at 22:00; Stop 09/19/19 at 21:59; Status DC Potassium Chloride/Water 100 ml @ 100 mls/hr 1X ONCE IV Last administered on 09/19/19at 10:15; Start 09/19/19 at 10:00; Stop 09/19/19 at 10:59; Status DC Potassium Chloride 90 meq/ Magnesium Sulfate 20 meq/ Multivitamins 10 ml/Chromium/ Copper/Manganese/ Seleni/Zn 1 ml/ Insulin Human Regular 20 unit/ Total Parenteral Nutrition/Amino Acids/Dextrose/ Fat Emulsion Intravenous 1,800 ml @ 75 mls/hr TPN CONT IV Last administered on 09/19/19at 22:28; Start 09/19/19 at 22:00; Stop 09/20/19 at 21:59; Status DC Potassium Chloride 90 meq/ Magnesium Sulfate 20 meq/ Multivitamins 10 ml/Chromium/ Copper/Manganese/ Seleni/Zn 1 ml/ Insulin Human Regular 20 unit/ Total Parenteral Nutrition/Amino Acids/Dextrose/ Fat Emulsion Intravenous 1,800 ml @ 75 mls/hr TPN CONT IV Last administered on 09/20/19at 22:08; Start 09/20/19 at 22:00; Stop 09/21/19 at 21:59; Status DC Lorazepam (Ativan Inj) 0.25 mg PRN Q4HRS PRN IVP ANXIETY / AGITATION Last administered on 10/30/19at 00:27; Start 09/21/19 at 07:30 Potassium Chloride 90 meq/ Magnesium Sulfate 20 meq/ Multivitamins 10 ml/Chromium/ Copper/Manganese/ Seleni/Zn 1 ml/ Insulin Human Regular 20 unit/ Total Parenteral Nutrition/Amino Acids/Dextrose/ Fat Emulsion Intravenous 1,800 ml @ 75 mls/hr TPN CONT IV Last administered on 09/21/19at 23:13; Start 09/21/19 at 22:00; Stop 09/22/19 at 21:59; Status DC Furosemide (Lasix) 40 mg DAILY IVP Last administered on 09/23/19at 11:14; Start 09/21/19 at 13:30; Stop 09/25/19 at 09:12; Status DC Fluoxetine HCl (PROzac) 20 mg QHS PEG Last administered on 10/31/19at 21:19; Start 09/22/19 at 21:00 Fentanyl (Duragesic 50mcg/ Hr Patch) 1 patch Q72H TD Last administered on 09/22/19at 21:22; Start 09/22/19 at 21:00; Stop 10/01/19 at 12:00; Status DC Potassium Chloride 40 meq/ Potassium Acetate 60 meq/Magnesium Sulfate 10 meq/ Multivitamins 10 ml/Chromium/ Copper/Manganese/ Seleni/Zn 1 ml/ Insulin Human Regular 20 unit/ Total Parenteral Nutrition/Amino Acids/Dextrose/ Fat Emulsion Intravenous 1,800 ml @ 75 mls/hr TPN CONT IV Last administered on 09/23/19at 00:03; Start 09/22/19 at 22:00; Stop 09/23/19 at 21:59; Status DC Potassium Acetate 80 meq/Magnesium Sulfate 5 meq/ Multivitamins 10 ml/Chromium/ Copper/Manganese/ Seleni/Zn 1 ml/ Insulin Human Regular 20 unit/ Total Parenteral Nutrition/Amino Acids/Dextrose/ Fat Emulsion Intravenous 1,920 ml @ 80 mls/hr TPN CONT IV Last administered on 09/23/19at 21:59; Start 09/23/19 at 22:00; Stop 09/24/19 at 21:59; Status DC Potassium Acetate 60 meq/Magnesium Sulfate 5 meq/ Multivitamins 10 ml/Chromium/ Copper/Manganese/ Seleni/Zn 1 ml/ Insulin Human Regular 30 unit/ Total Parenteral Nutrition/Amino Acids/Dextrose/ Fat Emulsion Intravenous 1,920 ml @ 80 mls/hr TPN CONT IV Last administered on 09/24/19at 21:54; Start 09/24/19 at 22:00; Stop 09/25/19 at 21:59; Status DC Norepinephrine Bitartrate 8 mg/ Dextrose 258 ml @ 13.332 mls/ hr CONT PRN IV PER PROTOCOL Last administered on 10/20/19at 09:09; Start 09/25/19 at 06:30 Albumin Human 500 ml @ 125 mls/hr 1X ONCE IV Last administered on 09/25/19at 08:10; Start 09/25/19 at 08:15; Stop 09/25/19 at 12:14; Status DC Potassium Acetate 40 meq/Magnesium Sulfate 5 meq/ Multivitamins 10 ml/Chromium/ Copper/Manganese/ Seleni/Zn 1 ml/ Insulin Human Regular 30 unit/ Total Parenteral Nutrition/Amino Acids/Dextrose/ Fat Emulsion Intravenous 1,920 ml @ 80 mls/hr TPN CONT IV Last administered on 09/25/19at 22:23; Start 09/25/19 at 22:00; Stop 09/26/19 at 21:59; Status DC Meropenem 1 gm/ Sodium Chloride 100 ml @ 200 mls/hr Q8HRS IV ; Start 09/25/19 at 14:00; Status Cancel Meropenem 1 gm/ Sodium Chloride 100 ml @ 200 mls/hr Q8HRS IV Last administered on 09/25/19at 11:04; Start 09/25/19 at 10:00; Stop 09/25/19 at 13:00; Status DC Meropenem 1 gm/ Sodium Chloride 100 ml @ 200 mls/hr Q12HR IV Last administered on 10/13/19at 08:27; Start 09/25/19 at 21:00; Stop 10/13/19 at 08:56; Status DC Sodium Chloride 1,000 ml @ 1,000 mls/hr 1X ONCE IV Last administered on 09/25/19at 11:06; Start 09/25/19 at 10:45; Stop 09/25/19 at 11:44; Status DC Micafungin Sodium 100 mg/Dextrose 100 ml @ 100 mls/hr Q24H IV Last administered on 10/12/19at 12:34; Start 09/25/19 at 11:00; Stop 10/13/19 at 08:56; Status DC Daptomycin 410 mg/ Sodium Chloride 50 ml @ 100 mls/hr Q24H IV Last administ ered on 09/27/19at 13:33; Start 09/25/19 at 14:00; Stop 09/28/19 at 08:30; Status DC Midazolam HCl (Versed) 2 mg STK-MED ONCE .ROUTE ; Start 09/25/19 at 14:47; Stop 09/25/19 at 14:48; Status DC Fentanyl Citrate (Fentanyl 2ml Vial) 100 mcg STK-MED ONCE .ROUTE ; Start 09/25/19 at 14:47; Stop 09/25/19 at 14:48; Status DC Flumazenil (Romazicon) 0.5 mg STK-MED ONCE IV ; Start 09/25/19 at 14:48; Stop 09/25/19 at 14:48; Status DC Naloxone HCl (Narcan) 0.4 mg STK-MED ONCE .ROUTE ; Start 09/25/19 at 14:48; Stop 09/25/19 at 14:48; Status DC Lidocaine HCl (Lidocaine 1% 20ml Vial) 20 ml STK-MED ONCE .ROUTE ; Start 09/25/19 at 14:48; Stop 09/25/19 at 14:48; Status DC Midazolam HCl (Versed) 2 mg 1X ONCE IV Last administered on 09/25/19at 15:28; Start 09/25/19 at 15:00; Stop 09/25/19 at 15:01; Status DC Fentanyl Citrate (Fentanyl 2ml Vial) 100 mcg 1X ONCE IV Last administered on 09/25/19at 15:28; Start 09/25/19 at 15:00; Stop 09/25/19 at 15:01; Status DC Lidocaine HCl (Lidocaine 1% 20ml Vial) 20 ml 1X ONCE INJ Last administered on 09/25/19at 15:30; Start 09/25/19 at 15:00; Stop 09/25/19 at 15:01; Status DC Sodium Chloride 1,000 ml @ 100 mls/hr Q10H IV Last administered on 10/04/19at 07:30; Start 09/25/19 at 20:00; Stop 10/04/19 at 11:26; Status DC Sodium Bicarbonate (Sodium Bicarb Adult 8.4% Syr) 50 meq 1X ONCE IV Last administered on 09/25/19at 21:47; Start 09/25/19 at 22:00; Stop 09/25/19 at 22:01; Status DC Potassium Acetate 40 meq/Magnesium Sulfate 5 meq/ Multivitamins 10 ml/Chromium/ Copper/Manganese/ Seleni/Zn 1 ml/ Insulin Human Regular 30 unit/ Total Parenteral Nutrition/Amino Acids/Dextrose/ Fat Emulsion Intravenous 1,920 ml @ 80 mls/hr TPN CONT IV Last administered on 09/26/19at 22:28; Start 09/26/19 at 22:00; Stop 09/27/19 at 21:59; Status DC Sodium Chloride 500 ml @ 500 mls/hr 1X ONCE IV Last administered on 09/27/19at 06:39; Start 09/27/19 at 06:45; Stop 09/27/19 at 07:44; Status DC Potassium Acetate 40 meq/Magnesium Sulfate 5 meq/ Multivitamins 10 ml/Chromium/ Copper/Manganese/ Seleni/Zn 1 ml/ Insulin Human Regular 30 unit/ Total Parenteral Nutrition/Amino Acids/Dextrose/ Fat Emulsion Intravenous 1,920 ml @ 80 mls/hr TPN CONT IV Last administered on 09/27/19at 22:03; Start 09/27/19 at 22:00; Stop 09/28/19 at 21:59; Status DC Metoprolol Tartrate (Lopressor Vial) 5 mg PRN Q6HRS PRN IVP HYPERTENSION Last administered on 10/30/19at 18:01; Start 09/28/19 at 09:00 Potassium Acetate 40 meq/Magnesium Sulfate 5 meq/ Multivitamins 10 ml/Chromium/ Copper/Manganese/ Seleni/Zn 1 ml/ Insulin Human Regular 30 unit/ Total Parenteral Nutrition/Amino Acids/Dextrose/ Fat Emulsion Intravenous 1,920 ml @ 80 mls/hr TPN CONT IV Last administered on 09/28/19at 21:26; Start 09/28/19 at 22:00; Stop 09/29/19 at 21:59; Status DC Potassium Acetate 40 meq/Magnesium Sulfate 5 meq/ Multivitamins 10 ml/Chromium/ Copper/Manganese/ Seleni/Zn 1 ml/ Insulin Human Regular 30 unit/ Total Parenteral Nutrition/Amino Acids/Dextrose/ Fat Emulsion Intravenous 1,920 ml @ 80 mls/hr TPN CONT IV Last administered on 09/29/19at 23:23; Start 09/29/19 at 22:00; Stop 09/30/19 at 21:59; Status DC Potassium Acetate 40 meq/Magnesium Sulfate 5 meq/ Multivitamins 10 ml/Chromium/ Copper/Manganese/ Seleni/Zn 1 ml/ Insulin Human Regular 30 unit/ Total Parenteral Nutrition/Amino Acids/Dextrose/ Fat Emulsion Intravenous 1,920 ml @ 80 mls/hr TPN CONT IV Last administered on 09/30/19at 21:35; Start 09/30/19 at 22:00; Stop 10/01/19 at 21:59; Status DC Furosemide (Lasix) 20 mg 1X ONCE IVP Last administered on 10/01/19at 06:26; Start 10/01/19 at 06:15; Stop 10/01/19 at 06:16; Status DC Methylprednisolone Sodium Succinate (SOLU-Medrol 125MG VIAL) 125 mg 1X ONCE IV Last administered on 10/01/19at 06:26; Start 10/01/19 at 06:15; Stop 10/01/19 at 06:16; Status DC Albuterol/ Ipratropium (Duoneb) 3 ml Q4HRS NEB Last administered on 11/01/19at 12:40; Start 10/01/19 at 08:00 Fentanyl Citrate 30 ml @ 0 mls/hr CONT PRN IV SEE PROTOCOL Last administered on 10/22/19at 08:03; Start 10/01/19 at 06:00; Stop 10/22/19 at 12:42; Status DC Propofol 100 ml @ 0 mls/hr CONT PRN IV SEE PROTOCOL Last administered on 10/08/19at 23:50; Start 10/01/19 at 06:00 Fentanyl Citrate (Fentanyl 2ml Vial) 25 mcg PRN Q1HR PRN IV SEE COMMENTS Last administered on 11/01/19at 13:08; Start 10/01/19 at 06:00 Fentanyl Citrate (Fentanyl 2ml Vial) 50 mcg PRN Q1HR PRN IV SEE COMMENTS Last administered on 10/30/19at 18:02; Start 10/01/19 at 06:00 Chlorhexidine Gluconate (Peridex) 15 ml BID MM ; Start 10/01/19 at 09:00; Stop 10/01/19 at 07:58; Status DC Potassium Acetate 40 meq/Magnesium Sulfate 5 meq/ Multivitamins 10 ml/Chromium/ Copper/Manganese/ Seleni/Zn 1 ml/ Insulin Human Regular 30 unit/ Total Parenteral Nutrition/Amino Acids/Dextrose/ Fat Emulsion Intravenous 1,920 ml @ 80 mls/hr TPN CONT IV Last administered on 10/01/19at 21:19; Start 10/01/19 at 22:00; Stop 10/02/19 at 21:59; Status DC Acetylcysteine (Mucomyst 20% Resp Treatment) 600 mg BID NEB Last administered on 10/07/19at 09:33; Start 10/01/19 at 21:00; Stop 10/07/19 at 10:39; Status DC Magnesium Sulfate 100 ml @ 25 mls/hr 1X ONCE IV Last administered on 10/01/19a t 15:48; Start 10/01/19 at 15:45; Stop 10/01/19 at 19:44; Status DC Potassium Acetate 40 meq/Magnesium Sulfate 5 meq/ Multivitamins 10 ml/Chromium/ Copper/Manganese/ Seleni/Zn 1 ml/ Insulin Human Regular 30 unit/ Total Parenteral Nutrition/Amino Acids/Dextrose/ Fat Emulsion Intravenous 1,920 ml @ 80 mls/hr TPN CONT IV Last administered on 10/02/19at 21:35; Start 10/02/19 at 22:00; Stop 10/03/19 at 21:59; Status DC Potassium Chloride/Water 100 ml @ 100 mls/hr Q1H IV Last administered on 10/03/19at 08:31; Start 10/03/19 at 07:00; Stop 10/03/19 at 08:59; Status DC Potassium Acetate 40 meq/Magnesium Sulfate 5 meq/ Multivitamins 10 ml/Chromium/ Copper/Manganese/ Seleni/Zn 1 ml/ Insulin Human Regular 30 unit/ Total Parenteral Nutrition/Amino Acids/Dextrose/ Fat Emulsion Intravenous 1,920 ml @ 80 mls/hr TPN CONT IV Last administered on 10/03/19at 21:54; Start 10/03/19 at 22:00; Stop 10/04/19 at 19:34; Status DC Lidocaine HCl (Buffered Lidocaine 1%) 3 ml STK-MED ONCE .ROUTE ; Start 10/03/19 at 12:14; Stop 10/03/19 at 12:14; Status DC Lidocaine HCl (Buffered Lidocaine 1%) 3 ml 1X ONCE IJ Last administered on 10/03/19at 13:11; Start 10/03/19 at 13:00; Stop 10/03/19 at 13:01; Status DC Magnesium Sulfate 50 ml @ 25 mls/hr 1X ONCE IV ; Start 10/04/19 at 08:15; Stop 10/04/19 at 10:14; Status DC Potassium Acetate 40 meq/Magnesium Sulfate 10 meq/ Multivitamins 10 ml/Chromium/ Copper/Manganese/ Seleni/Zn 1 ml/ Insulin Human Regular 20 unit/ Total Parenteral Nutrition/Amino Acids/Dextrose/ Fat Emulsion Intravenous 1,920 ml @ 80 mls/hr TPN CONT IV Last administered on 10/04/19at 21:32; Start 10/04/19 at 22:00; Stop 10/05/19 at 21:59; Status DC Potassium Chloride/Water 100 ml @ 100 mls/hr Q1H IV Last administered on 10/05/19at 09:12; Start 10/05/19 at 08:00; Stop 10/05/19 at 09:59; Status DC Alteplase, Recombinant (Cathflo For Central Catheter Clearance) 4 mg 1X ONCE INT CAT ; Start 10/05/19 at 09:15; Stop 10/05/19 at 09:16; Status UNV Alteplase, Recombinant (Cathflo For Central Catheter Clearance) 4 mg 1X ONCE INT CAT ; Start 10/05/19 at 09:15; Stop 10/05/19 at 09:16; Status UNV Alteplase, Recombinant (Cathflo For Central Catheter Clearance) 4 mg 1X ONCE INT CAT ; Start 10/05/19 at 09:15; Stop 10/05/19 at 09:16; Status UNV Alteplase, Recombinant 4 mg/ Sodium Chloride 20 ml @ 20 mls/hr 1X ONCE IV Last administered on 10/05/19at 10:10; Start 10/05/19 at 10:00; Stop 10/05/19 at 10:59; Status DC Alteplase, Recombinant 4 mg/ Sodium Chloride 20 ml @ 20 mls/hr 1X ONCE IV Last administered on 10/05/19at 10:09; Start 10/05/19 at 10:00; Stop 10/05/19 at 10:59; Status DC Alteplase, Recombinant 4 mg/ Sodium Chloride 20 ml @ 20 mls/hr 1X ONCE IV Last administered on 10/05/19at 10:09; Start 10/05/19 at 10:00; Stop 10/05/19 at 10:59; Status DC Potassium Acetate 60 meq/Magnesium Sulfate 10 meq/ Multivitamins 10 ml/Chromium/ Copper/Manganese/ Seleni/Zn 1 ml/ Insulin Human Regular 20 unit/ Total P arenteral Nutrition/Amino Acids/Dextrose/ Fat Emulsion Intravenous 1,920 ml @ 80 mls/hr TPN CONT IV Last administered on 10/05/19at 21:55; Start 10/05/19 at 22:00; Stop 10/06/19 at 21:59; Status DC Albumin Human 500 ml @ 125 mls/hr 1X ONCE IV Last administered on 10/06/19at 12:01; Start 10/06/19 at 11:15; Stop 10/06/19 at 15:14; Status DC Sodium Chloride 500 ml @ 500 mls/hr 1X ONCE IV Last administered on 10/06/19at 13:50; Start 10/06/19 at 11:15; Stop 10/06/19 at 12:14; Status DC Potassium Acetate 60 meq/Magnesium Sulfate 14 meq/ Multivitamins 10 ml/Chromium/ Copper/Manganese/ Seleni/Zn 1 ml/ Insulin Human Regular 20 unit/ Total Parenteral Nutrition/Amino Acids/Dextrose/ Fat Emulsion Intravenous 1,920 ml @ 80 mls/hr TPN CONT IV Last administered on 10/06/19at 22:26; Start 10/06/19 at 22:00; Stop 10/07/19 at 21:59; Status DC Ciprofloxacin/ Dextrose 200 ml @ 200 mls/hr Q12HR IV Last administered on 10/13/19at 08:27; Start 10/06/19 at 21:00; Stop 10/13/19 at 08:56; Status DC Albumin Human 250 ml @ 62.5 mls/hr 1X ONCE IV Last administered on 10/07/19at 11:09; Start 10/07/19 at 11:00; Stop 10/07/19 at 14:59; Status DC Furosemide (Lasix) 20 mg 1X ONCE IVP Last administered on 10/07/19at 14:52; Start 10/07/19 at 10:45; Stop 10/07/19 at 10:49; Status DC Potassium Acetate 60 meq/Magnesium Sulfate 14 meq/ Multivitamins 10 ml/Chromium/ Copper/Manganese/ Seleni/Zn 1 ml/ Insulin Human Regular 15 unit/ Total Parenteral Nutrition/Amino Acids/Dextrose/ Fat Emulsion Intravenous 1,920 ml @ 80 mls/hr TPN CONT IV Last administered on 10/07/19at 22:08; Start 10/07/19 at 22:00; Stop 10/08/19 at 21:59; Status DC Potassium Acetate 60 meq/Magnesium Sulfate 14 meq/ Multivitamins 10 ml/Chromium/ Copper/Manganese/ Seleni/Zn 1 ml/ Insulin Human Regular 15 unit/ Total Parenteral Nutrition/Amino Acids/Dextrose/ Fat Emulsion Intravenous 1,920 ml @ 80 mls/hr TPN CONT IV Last administered on 10/08/19at 22:12; Start 10/08/19 at 22:00; Stop 10/09/19 at 21:59; Status DC Potassium Acetate 60 meq/Magnesium Sulfate 14 meq/ Multivitamins 10 ml/Chromium/ Copper/Manganese/ Seleni/Zn 1 ml/ Insulin Human Regular 15 unit/ Total Parenteral Nutrition/Amino Acids/Dextrose/ Fat Emulsion Intravenous 1,920 ml @ 80 mls/hr TPN CONT IV Last administered on 10/09/19at 22:22; Start 10/09/19 at 22:00; Stop 10/10/19 at 21:59; Status DC Furosemide (Lasix) 20 mg 1X ONCE IVP Last administered on 10/10/19at 11:07; Start 10/10/19 at 10:30; Stop 10/10/19 at 10:34; Status DC Potassium Acetate 60 meq/Magnesium Sulfate 14 meq/ Multivitamins 10 ml/Chromium/ Copper/Manganese/ Seleni/Zn 1 ml/ Insulin Human Regular 15 unit/ Sodium Chloride 20 meq/Total Parenteral Nutrition/Amino Acids/Dextrose/ Fat Emulsion Intravenous 1,920 ml @ 80 mls/hr TPN CONT IV Last administered on 10/10/19at 21:54; Start 10/10/19 at 22:00; Stop 10/11/19 at 21:59; Status DC Potassium Acetate 30 meq/Magnesium Sulfate 14 meq/ Multivitamins 10 ml/Chromium/ Copper/Manganese/ Seleni/Zn 1 ml/ Insulin Human Regular 15 unit/ Sodium Chloride 20 meq/Potassium Chloride 30 meq/ Total Parenteral Nutrition/Amino Acids/Dextrose/ Fat Emulsion Intravenous 1,920 ml @ 80 mls/hr TPN CONT IV Last administered on 10/11/19at 21:46; Start 10/11/19 at 22:00; Stop 10/12/19 at 21:59; Status DC Sodium Chloride 80 meq/Potassium Chloride 30 meq/ Potassium Acetate 30 meq/Magnesium Sulfate 14 meq/ Multivitamins 10 ml/Chromium/ Copper/Manganese/ Seleni/Zn 1 ml/ Insulin Human Regular 15 unit/ Total Parenteral Nutrition/Amino Acids/Dextrose/ Fat Emulsion Intravenous 1,920 ml @ 80 mls/hr TPN CONT IV Last administered on 10/12/19at 22:33; Start 10/12/19 at 22:00; Stop 10/13/19 at 21:59; Status DC Furosemide (Lasix) 40 mg 1X ONCE IVP Last administered on 10/12/19at 16:27; Start 10/12/19 at 15:30; Stop 10/12/19 at 15:33; Status DC Albumin Human 250 ml @ 62.5 mls/hr 1X ONCE IV Last administered on 10/12/19at 16:27; Start 10/12/19 at 15:30; Stop 10/12/19 at 19:29; Status DC Sodium Chloride 80 meq/Potassium Chloride 30 meq/ Potassium Acetate 30 meq/Magnesium Sulfate 14 meq/ Multivitamins 10 ml/Chromium/ Copper/Manganese/ Seleni/Zn 1 ml/ Insulin Human Regular 15 unit/ Total Parenteral Nutrition/Amino Acids/Dextrose/ Fat Emulsion Intravenous 1,920 ml @ 80 mls/hr TPN CONT IV Last administered on 10/13/19at 22:25; Start 10/13/19 at 22:00; Stop 10/14/19 at 21:59; Status DC Sodium Chloride 80 meq/Potassium Chloride 30 meq/ Potassium Acetate 30 meq/Magnesium Sulfate 14 meq/ Multivitamins 10 ml/Chromium/ Copper/Manganese/ Seleni/Zn 1 ml/ Insulin Human Regular 15 unit/ Total Parenteral Nutrition/Amino Acids/Dextrose/ Fat Emulsion Intravenous 1,920 ml @ 80 mls/hr TPN CONT IV Last administered on 10/14/19at 21:32; Start 10/14/19 at 22:00; Stop 10/15/19 at 21:59; Status DC Sodium Chloride 80 meq/Potassium Chloride 30 meq/ Potassium Acetate 30 meq/Magnesium Sulfate 14 meq/ Multivitamins 10 ml/Chromium/ Copper/Manganese/ Seleni/Zn 1 ml/ Insulin Human Regular 15 unit/ Total Parenteral Nutrition/Amino Acids/Dextrose/ Fat Emulsion Intravenous 1,920 ml @ 80 mls/hr TPN CONT IV Last administered on 10/15/19at 21:53; Start 10/15/19 at 22:00; Stop 10/16/19 at 21:59; Status DC Acetylcysteine (Mucomyst 20% Resp Treatment) 600 mg RTBID NEB Last administered on 11/01/19at 08:00; Start 10/15/19 at 12:00 Sodium Chloride 80 meq/Potassium Chloride 30 meq/ Potassium Acetate 30 meq/Magnesium Sulfate 14 meq/ Multivitamins 10 ml/Chromium/ Copper/Manganese/ Seleni/Zn 1 ml/ Insulin Human Regular 15 unit/ Total Parenteral Nutrition/Amino Acids/Dextrose/ Fat Emulsion Intravenous 1,920 ml @ 80 mls/hr TPN CONT IV Last administered on 10/16/19at 22:06; Start 10/16/19 at 22:00; Stop 10/17/19 at 21:59; Status DC Meropenem 500 mg/ Sodium Chloride 50 ml @ 100 mls/hr Q6HRS IV Last administered on 11/01/19at 12:39; Start 10/16/19 at 18:00 Daptomycin 500 mg/ Sodium Chloride 50 ml @ 100 mls/hr Q24H IV Last administered on 10/24/19at 21:47; Start 10/16/19 at 19:00; Stop 10/25/19 at 08:13; Status DC Sodium Chloride 80 meq/Potassium Chloride 30 meq/ Potassium Acetate 30 meq/Magnesium Sulfate 14 meq/ Multivitamins 10 ml/Chromium/ Copper/Manganese/ Seleni/Zn 1 ml/ Insulin Human Regular 15 unit/ Total Parenteral Nutrition/Amino Acids/Dextrose/ Fat Emulsion Intravenous 1,920 ml @ 80 mls/hr TPN CONT IV Last administered on 10/17/19at 22:09; Start 10/17/19 at 22:00; Stop 10/18/19 at 21:59; Status DC Heparin Sodium (Porcine) 1000 unit/Sodium Chloride 1,001 ml @ 1,001 mls/hr 1X ONCE IRR ; Start 10/18/19 at 06:00; Stop 10/18/19 at 06:59; Status DC Propofol (Diprivan) 200 mg STK-MED ONCE IV ; Start 10/18/19 at 07:44; Stop 10/18/19 at 07:44; Status DC Lidocaine HCl (Lidocaine Pf 2% Vial) 5 ml STK-MED ONCE .ROUTE ; Start 10/18/19 at 07:44; Stop 10/18/19 at 07:44; Status DC Fentanyl Citrate (Fentanyl 2ml Vial) 100 mcg STK-MED ONCE .ROUTE ; Start 10/18/19 at 07:44; Stop 10/18/19 at 07:44; Status DC Rocuronium [place] (Zemuron) 100 mg STK-MED ONCE .ROUTE ; Start 10/18/19 at 07:44; Stop 10/18/19 at 07:44; Status DC Micafungin Sodium 100 mg/Dextrose 100 ml @ 100 mls/hr Q24H IV Last administered on 11/01/19at 09:00; Start 10/18/19 at 08:30 Bupivacaine HCl/ Epinephrine Bitart (Sensorcain-Epi 0.5%-[id number] Mpf) 30 ml STK-MED ONCE .ROUTE ; Start 10/18/19 at 08:34; Stop 10/18/19 at 08:35; Status DC Iohexol (Omnipaque 300 Mg/ml) 50 ml STK-MED ONCE .ROUTE Last administered on 10/18/19at 13:30; Start 10/18/19 at 08:35; Stop 10/18/19 at 08:35; Status DC Sodium Chloride 80 meq/Potassium Chloride 30 meq/ Potassium Acetate 30 meq/Magnesium Sulfate 14 meq/ Multivitamins 10 ml/Chromium/ Copper/Manganese/ Seleni/Zn 1 ml/ Insulin Human Regular 15 unit/ Total Parenteral Nutrition/Amino Acids/Dextrose/ Fat Emulsion Intravenous 1,920 ml @ 80 mls/hr TPN CONT IV Last administered on 10/19/19at 01:22; Start 10/18/19 at 22:00; Stop 10/19/19 at 21:59; Status DC Phenylephrine HCl (Brayden-Synephrine Inj) 10 mg STK-MED ONCE .ROUTE ; Start 10/18/19 at 10:15; Stop 10/18/19 at 10:15; Status DC Desflurane (Suprane) 90 ml STK-MED ONCE IH ; Start 10/18/19 at 10:18; Stop 10/18/19 at 10:19; Status DC Albumin Human 500 ml @ As Directed STK-MED ONCE IV ; Start 10/18/19 at 11:06; Stop 10/18/19 at 11:06; Status DC Vasopressin (Vasostrict) 20 unit STK-MED ONCE .ROUTE ; Start 10/18/19 at 12:23; Stop 10/18/19 at 12:23; Status DC Phenylephrine HCl (Brayden-Synephrine Inj) 10 mg STK-MED ONCE .ROUTE ; Start 10/18/19 at 13:33; Stop 10/18/19 at 13:33; Status DC Phenylephrine HCl (Brayden-Synephrine Inj) 10 mg STK-MED ONCE .ROUTE ; Start 10/18/19 at 13:33; Stop 10/18/19 at 13:33; Status DC Ondansetron HCl (Zofran) 4 mg STK-MED ONCE .ROUTE ; Start 10/18/19 at 13:33; Stop 10/18/19 at 13:33; Status DC Enoxaparin Sodium (Lovenox 40mg Syringe) 40 mg Q24H SQ Last administered on 11/01/19at 09:01; Start 10/19/19 at 08:00 Sodium Chloride (Normal Saline Flush) 3 ml QSHIFT PRN IV AFTER MEDS AND BLOOD DRAWS; Start 10/18/19 at 14:45 Naloxone HCl (Narcan) 0.4 mg PRN Q2MIN PRN IV SEE INSTRUCTIONS; Start 10/18/19 at 14:45 Sodium Chloride 1,000 ml @ 25 mls/hr Q24H IV Last administered on 10/31/19at 14:33; Start 10/18/19 at 14:33 Morphine Sulfate (Morphine Sulfate) 1 mg PRN Q1HR PRN IV PAIN; Start 10/18/19 at 14:45 Midazolam HCl 100 mg/Sodium Chloride 100 ml @ 1 mls/hr CONT PRN IV SEE I/O RECORD Last administered on 10/21/19at 18:48; Start 10/18/19 at 14:45 Phenylephrine HCl (PHENYLEPHRINE in 0.9% NACL PF) 1 mg STK-MED ONCE IV ; Start 10/18/19 at 14:44; Stop 10/18/19 at 14:45; Status DC Ephedrine Sulfate (ePHEDrine PF IN SALINE SYRINGE) 50 mg STK-MED ONCE IV ; Start 10/18/19 at 14:45; Stop 10/18/19 at 14:45; Status DC Vasopressin 20 unit/Dextrose 101 ml @ 12 mls/hr CONT PRN IV SEE I/O RECORD Last administered on 10/25/19at 04:17; Start 10/18/19 at 15:30 Sodium Chloride 1,000 ml @ 1,000 mls/hr 1X ONCE IV Last administered on 10/18/19at 15:42; Start 10/18/19 at 15:45; Stop 10/18/19 at 16:44; Status DC Albumin Human 500 ml @ 125 mls/hr 1X ONCE IV ; Start 10/18/19 at 16:00; Stop 10/18/19 at 19:59; Status DC Albumin Human 500 ml @ 125 mls/hr PRN Q1HR PRN IV PER PROTOCOL; Start 10/18/19 at 15:45 Magnesium Sulfate 50 ml @ 25 mls/hr 1X ONCE IV Last administered on 10/18/19at 17:02; Start 10/18/19 at 16:30; Stop 10/18/19 at 18:29; Status DC Sodium Bicarbonate (Sodium Bicarb Adult 8.4% Syr) 50 meq STK-MED ONCE .ROUTE ; Start 10/18/19 at 16:20; Stop 10/18/19 at 16:20; Status DC Sodium Bicarbonate (Sodium Bicarb Adult 8.4% Syr) 100 meq 1X ONCE IV Last administered on 10/18/19at 17:07; Start 10/18/19 at 16:30; Stop 10/18/19 at 16:31; Status DC Sodium Bicarbonate 150 meq/Dextrose 1,150 ml @ 75 mls/hr 1X ONCE IV Last administered on 10/18/19at 20:02; Start 10/18/19 at 16:30; Stop 10/19/19 at 07:49; Status DC Sodium Chloride 80 meq/Potassium Chloride 30 meq/ Potassium Acetate 30 meq/Magnesium Sulfate 14 meq/ Multivitamins 10 ml/Chromium/ Copper/Manganese/ Seleni/Zn 1 ml/ Insulin Human Regular 15 unit/ Total Parenteral Nutrition/Amino Acids/Dextrose/ Fat Emulsion Intravenous 1,920 ml @ 80 mls/hr TPN CONT IV Last administered on 10/19/19at 23:05; Start 10/19/19 at 22:00; Stop 10/20/19 at 21:59; Status DC Sodium Chloride 100 meq/Potassium Chloride 30 meq/ Potassium Acetate 30 meq/Magnesium Sulfate 12 meq/ Multivitamins 10 ml/Chromium/ Copper/Manganese/ Seleni/Zn 1 ml/ Insulin Human Regular 15 unit/ Total Parenteral Nutrition/Amino Acids/Dextrose/ Fat Emulsion Intravenous 1,920 ml @ 80 mls/hr TPN CONT IV Last administered on 10/20/19at 21:52; Start 10/20/19 at 22:00; Stop 10/21/19 at 21:59; Status DC Sodium Chloride 100 meq/Potassium Chloride 30 meq/ Potassium Acetate 30 meq/Magnesium Sulfate 12 meq/ Multivitamins 10 ml/Chromium/ Copper/Manganese/ Seleni/Zn 1 ml/ Insulin Human Regular 15 unit/ Total Parenteral Nutrition/Amino Acids/Dextrose/ Fat Emulsion Intravenous 1,920 ml @ 80 mls/hr TPN CONT IV Last administered on 10/21/19at 21:46; Start 10/21/19 at 22:00; Stop 10/22/19 at 2 1:59; Status DC Sodium Chloride 100 meq/Potassium Chloride 30 meq/ Potassium Acetate 30 meq/Magnesium Sulfate 12 meq/ Multivitamins 10 ml/Chromium/ Copper/Manganese/ Seleni/Zn 1 ml/ Insulin Human Regular 15 unit/ Total Parenteral Nutrition/Amino Acids/Dextrose/ Fat Emulsion Intravenous 1,800 ml @ 75 mls/hr TPN CONT IV Last administered on 10/22/19at 22:04; Start 10/22/19 at 22:00; Stop 10/23/19 at 21:59; Status DC Fentanyl Citrate 55 ml @ 0 mls/hr CONT PRN IV SEE COMMENTS Last administered on 10/24/19at 23:55; Start 10/22/19 at 13:00; Stop 10/27/19 at 17:28; Status DC Sodium Chloride 100 meq/Potassium Chloride 30 meq/ Potassium Acetate 30 meq/Magnesium Sulfate 12 meq/ Multivitamins 10 ml/Chromium/ Copper/Manganese/ Seleni/Zn 1 ml/ Insulin Human Regular 15 unit/ Total Parenteral Nutrition/Amino Acids/Dextrose/ Fat Emulsion Intravenous 1,680 ml @ 70 mls/hr TPN CONT IV Last administered on 10/23/19at 21:23; Start 10/23/19 at 22:00; Stop 10/24/19 at 21:59; Status DC Sodium Chloride 110 meq/Potassium Chloride 30 meq/ Potassium Acetate 30 meq/Magnesium Sulfate 15 meq/ Multivitamins 10 ml/Chromium/ Copper/Manganese/ Seleni/Zn 1 ml/ Insulin Human Regular 15 unit/ Total Parenteral Nutrition/Amino Acids/Dextrose/ Fat Emulsion Intravenous 1,680 ml @ 70 mls/hr TPN CONT IV Last administered on 10/24/19at 21:48; Start 10/24/19 at 22:00; Stop 10/25/19 at 21:59; Status DC Sodium Chloride 110 meq/Potassium Chloride 30 meq/ Potassium Acetate 30 meq/Magnesium Sulfate 15 meq/ Multivitamins 10 ml/Chromium/ Copper/Manganese/ Seleni/Zn 1 ml/ Insulin Human Regular 15 unit/ Total Parenteral Nutrition/Amino Acids/Dextrose/ Fat Emulsion Intravenous 1,680 ml @ 70 mls/hr TPN CONT IV Last administered on 10/25/19at 21:33; Start 10/25/19 at 22:00; Stop 10/26/19 at 21:59; Status DC Sodium Chloride 110 meq/Potassium Chloride 30 meq/ Potassium Acetate 30 meq/Magnesium Sulfate 15 meq/ Multivitamins 10 ml/Chromium/ Copper/Manganese/ Seleni/Zn 1 ml/ Insulin Human Regular 15 unit/ Total Parenteral Nutrition/Amino Acids/Dextrose/ Fat Emulsion Intravenous 1,680 ml @ 70 mls/hr TPN CONT IV Last administered on 10/26/19at 21:51; Start 10/26/19 at 22:00; Stop 10/27/19 at 21:59; Status DC Sodium Chloride 90 meq/Potassium Chloride 30 meq/ Potassium Acetate 30 meq/Magnesium Sulfate 15 meq/ Multivitamins 10 ml/Chromium/ Copper/Manganese/ Seleni/Zn 1 ml/ Insulin Human Regular 15 unit/ Total Parenteral Nutrition/Amino Acids/Dextrose/ Fat Emulsion Intravenous 1,680 ml @ 70 mls/hr TPN CONT IV Last administered on 10/27/19at 22:38; Start 10/27/19 at 22:00; Stop 10/28/19 at 21:59; Status DC Fentanyl Citrate 30 ml @ 0 mls/hr CONT PRN IV SEE I/O RECORD; Start 10/27/19 at 17:30 Fentanyl (Duragesic 12mcg/ Hr Patch) 1 patch Q3DAYS TD Last administered on 10/31/19at 10:01; Start 10/28/19 at 09:00 Sodium Chloride 90 meq/Potassium Chloride 30 meq/ Potassium Acetate 30 meq/Magnesium Sulfate 15 meq/ Multivitamins 10 ml/Chromium/ Copper/Manganese/ Seleni/Zn 1 ml/ Insulin Human Regular 15 unit/ Total Parenteral Nutrition/Amino Acids/Dextrose/ Fat Emulsion Intravenous 1,680 ml @ 70 mls/hr TPN CONT IV Last administered on 10/28/19at 21:59; Start 10/28/19 at 22:00; Stop 10/29/19 at 21:59; Status DC Sodium Chloride 90 meq/Potassium Chloride 30 meq/ Potassium Acetate 30 meq/Magnesium Sulfate 15 meq/ Multivitamins 10 ml/Chromium/ Copper/Manganese/ Seleni/Zn 1 ml/ Insulin Human Regular 15 unit/ Total Parenteral Nutrition/Amino Acids/Dextrose/ Fat Emulsion Intravenous 1,680 ml @ 70 mls/hr TPN CONT IV Last administered on 10/29/19at 21:35; Start 10/29/19 at 22:00; Stop 10/30/19 at 21:59; Status DC Vancomycin HCl (Vanco Per Pharmacy) 1 each PRN DAILY PRN MC SEE COMMENTS Last administered on 11/01/19at 02:46; Start 10/30/19 at 09:15 Ciprofloxacin/ Dextrose 200 ml @ 200 mls/hr Q12HR IV Last administered on 11/01/19at 09:00; Start 10/30/19 at 10:00 Vancomycin HCl 2 gm/Sodium Chloride 500 ml @ 250 mls/hr 1X ONCE IV Last administered on 10/30/19at 10:34; Start 10/30/19 at 10:00; Stop 10/30/19 at 11:59; Status DC Sodium Chloride 90 meq/Potassium Chloride 30 meq/ Potassium Acetate 30 meq/Magn esium Sulfate 15 meq/ Multivitamins 10 ml/Chromium/ Copper/Manganese/ Seleni/Zn 1 ml/ Insulin Human Regular 15 unit/ Total Parenteral Nutrition/Amino Acids/Dextrose/ Fat Emulsion Intravenous 1,680 ml @ 70 mls/hr TPN CONT IV Last administered on 10/30/19at 22:02; Start 10/30/19 at 22:00; Stop 10/31/19 at 21:59; Status DC Diphenhydramine HCl (Benadryl) 25 mg 1X ONCE IVP Last administered on 10/30/19at 14:26; Start 10/30/19 at 14:30; Stop 10/30/19 at 14:31; Status DC Vancomycin HCl 1.5 gm/Sodium Chloride 500 ml @ 250 mls/hr Q8H IV Last administered on 10/31/19at 03:08; Start 10/30/19 at 18:30; Stop 10/31/19 at 12:24; Status DC Vancomycin HCl (Vancomycin Trough Level) 1 each 1X ONCE MC Last administered on 10/31/19at 10:00; Start 10/31/19 at 10:00; Stop 10/31/19 at 10:01; Status DC Sodium Chloride 90 meq/Potassium Chloride 30 meq/ Potassium Acetate 30 meq/Magnesium Sulfate 15 meq/ Multivitamins 10 ml/Chromium/ Copper/Manganese/ Seleni/Zn 1 ml/ Insulin Human Regular 15 unit/ Total Parenteral Nutrition/Amino Acids/Dextrose/ Fat Emulsion Intravenous 1,680 ml @ 70 mls/hr TPN CONT IV Last administered on 10/31/19at 22:13; Start 10/31/19 at 22:00; Stop 11/01/19 at 21:59 Vancomycin HCl (Vancomycin Random Level) 1 each 1X ONCE MC Last administered on 11/01/19at 01:00; Start 11/01/19 at 01:00; Stop 11/01/19 at 01:01; Status DC Vancomycin HCl 1.5 gm/Sodium Chloride 500 ml @ 250 mls/hr Q12H IV Last administered on 11/01/19at 09:00; Start 11/01/19 at 10:00 Vancomycin HCl (Vancomycin Trough Level) 1 each 1X ONCE MC ; Start 11/02/19 at 09:30; Stop 11/02/19 at 09:31 Sodium Chloride 90 meq/Potassium Chloride 30 meq/ Potassium Acetate 30 meq/ Magnesium Sulfate 15 meq/ Multivitamins 10 ml/Chromium/ Copper/Manganese/ Seleni/Zn 1 ml/ Insulin Human Regular 15 unit/ Total Parenteral Nutrition/Amino Acids/Dextrose/ Fat Emulsion Intravenous 1,680 ml @ 70 mls/hr TPN CONT IV ; Start 11/01/19 at 22:00; Stop 11/02/19 at 21:59 Alteplase, Recombinant (Cathflo For Central Catheter Clearance) 1 mg 1X ONCE INT CAT Last administered on 11/01/19at 11:49; Start 11/01/19 at 11:00; Stop 11/01/19 at 11:01; Status DC Active Scripts Active Reported Bisoprolol Fumarate 5 Mg Tablet 10 Mg PO DAILY Vitals/I & O Vital Sign - Last 24 Hours 10/31/19 10/31/19 10/31/19 10/31/19 15:00 16:00 16:00 16:02 Temp 98.9 98.9 Pulse 120 118 Resp 32 32 B/P (MAP) 142/97 (112) 140/95 (110) Pulse Ox 100 100 100 O2 Delivery Tracheal Collar Trach Collar Tracheal Collar Tracheal Collar O2 Flow Rate 9.0 8.0 10/31/19 10/31/19 10/31/19 10/31/19 17:00 18:00 19:00 19:57 Temp 100.0 100.0 Pulse 120 120 133 Resp 30 28 39 B/P (MAP) 140/75 (96) 149/84 (105) 154/96 (115) Pulse Ox 100 100 99 97 O2 Delivery Tracheal Collar Tracheal Collar Tracheal Collar Ventilator 10/31/19 10/31/19 10/31/19 10/31/19 20:00 20:00 21:00 22:00 Temp 101.5 101.5 Pulse 137 129 120 Resp 32 19 18 B/P (MAP) 140/86 (104) 113/66 (82) 108/69 (82) Pulse Ox 100 100 100 O2 Delivery Mechanical Ventilator Ventilator Ventilator Ventilator 10/31/19 10/31/19 11/01/19 11/01/19 22:49 23:00 00:00 00:00 Temp 99.1 99.1 Pulse 113 98 Resp 18 12 B/P (MAP) 110/60 (77) 114/71 (85) Pulse Ox 100 100 100 O2 Delivery Ventilator Ventilator Mechanical Ventilator Ventilator 11/01/19 11/01/19 11/01/19 11/01/19 01:00 02:00 03:00 07:00 Pulse 102 106 110 122 Resp 12 17 17 22 B/P (MAP) 105/64 (78) 129/77 (94) 123/82 (96) 131/71 (91) Pulse Ox 100 100 100 99 O2 Delivery Ventilator Ventilator Ventilator Tracheal Collar O2 Flow Rate 8.0 11/01/19 11/01/19 11/01/19 11/01/19 08:00 08:00 09:00 09:02 Temp 99.2 99.2 Pulse 129 130 Resp 27 40 40 B/P (MAP) 125/75 (92) 113/61 (78) Pulse Ox 100 98 O2 Delivery Tracheal Collar Mechanical Ventilator Tracheal Collar Tracheal Collar O2 Flow Rate 8.0 8.0 8.0 11/01/19 11/01/19 11/01/19 11/01/19 09:52 10:00 11:00 12:00 Temp 98.9 98.9 Pulse 130 124 96 Resp 27 35 36 41 B/P (MAP) 119/70 (86) 133/77 (95) 131/85 (100) Pulse Ox 100 99 100 96 O2 Delivery Tracheal Collar Tracheal Collar Tracheal Collar Tracheal Collar O2 Flow Rate 8.0 8.0 8.0 8.0 11/01/19 11/01/19 11/01/19 11/01/19 12:00 12:44 13:00 13:08 Pulse 133 Resp 34 37 B/P (MAP) 131/89 (103) Pulse Ox 100 96 100 O2 Delivery Trach Collar Tracheal Collar Tracheal Collar O2 Flow Rate 8.0 8.0 8.0 11/01/19 13:50 Resp 35 Pulse Ox 99 O2 Delivery Tracheal Collar O2 Flow Rate 8.0 Intake and Output 10/31/19 10/31/19 11/01/19 15:00 23:00 07:00 Intake Total 400 ml 1016 ml 637 ml Output Total 735 ml 1207 ml 390 ml Balance -335 ml -191 ml 247 ml Justicifation of Admission Dx: Justifications for Admission: Justification of Admission Dx: Yes ROSS DIAS MD Nov 01, 2019 14:40
[2019-11-01] MEDS: ACETAMINOPHEN 650 MG SUPP.RECT. PR PRN (17:06)
[2019-11-01] MEDS ORDERED: TOTAL PARENTERAL NUTRITION IV SCH ×10 (22:00)
[2019-11-01] MEDS ORDERED: [UNRECOGNIZED DRUG - OTHER] IV SCH ×10 (22:00)
[2019-11-01] MEDS ORDERED: DEXTROSE 70% IV SCH ×10 (22:00)
[2019-11-01] MEDS ORDERED: AMINO ACID IV SCH ×10 (22:00)
[2019-11-02] VITALS (21 sets, daily range): BP systolic 103–169; BP diastolic 71–95
[2019-11-02] MEDS: MEROPENEM 500 MG in IV NORMAL SALINE 50ML 50 ML IV SCH ×4 (00:08→17:09)
[2019-11-02] MEDS: IPRATRPIUM/ALBUTEROL 0.5/2.5MG 3 ML NEBU. NEB SCH ×6 (03:38→20:08)
[2019-11-02] MEDS: INSULIN LISPRO 300 UNITS/3 ML VIAL. SQ SCH ×4 (05:53→18:00)
[2019-11-02 06:27] LABS: BASO % 0 % (0-3); EOS # 0.3 x10^3/uL (0.0-0.7); EOS % 3 % (0-3); HEMATOCRIT 21.2 % (36.0-47.0); LYMPH % 10 % (24-48); MEAN CORPUSCULAR HEMOGLOBIN 29 pg (25-35); MEAN CORPUSCULAR HGB CONC 33 g/dL (31-37); MEAN CORPUSCULAR VOLUME 87 fL (79-100); MONO % 10 % (0-9); NEUT # 7.8 x10^3/uL (1.8-7.7); NEUT % 77 % (31-73); PLATELET COUNT 551 x10^3/uL (140-400); RED BLOOD COUNT 2.44 x10^6/uL (3.50-5.40); RED CELL DISTRIBUTION WIDTH 14.8 % (11.5-14.5); WHITE BLOOD COUNT 10.1 x10^3/uL (4.0-11.0)
[2019-11-02 06:32] LABS: CALCIUM 8.7 mg/dL (8.5-10.1); CREATININE 0.5 mg/dL (0.6-1.0); GFR 131.1; POTASSIUM 4.1 mmol/L (3.5-5.1)
[2019-11-02] MEDS: ACETYLCYSTEINE 20% for RESP TX 600 MG/3 ML. NEB SCH ×2 (07:18→20:08)
--- NOTE | 2019-11-02 07:28 | PDOC ---
Infectious Disease Note Subjective Subjective Patient is awake on a ventilator through trach ROS ROS nausea +, no vomiting does have fever Vital Sign Vital Signs Vital Signs Date Time Temp Pulse Resp B/P (MAP) Pulse Ox O2 Delivery O2 Flow Rate FiO2 11/02/19 06:00 125 31 141/81 (101) 100 Tracheal Collar 8.0 11/02/19 04:00 100.8 100.8 Physical Exam PHYSICAL EXAM GENERAL: Propped up in bed, awake, weak appearing HEENT: Pupils equal, oral cavity dry. NGT out, on vent NECK: Tracheostomy LUNGS: Diminished aeration bases, CT on left HEART: S1, S2, regular, tachy ABDOMEN: Sightly less distended, bowel sounds hypoactive, soft, goyal x 2, 3 KAYLIN drains, G-J tube and + wound vac : Lind in place EXTREMITIES: Generalized edema, no cyanosis. SCDs & Podus boots bilaterally, SKIN: warm touch. No signs of rash. NEURO: awake, mouthing some words, tracking LUE-PICC without signs of complications LUE art-line out, mottling about old art-line site is improving. RP palpable, cap refill brisk. Labs Lab Laboratory Tests Test 11/01/19 12:34 11/01/19 17:49 11/02/19 00:06 11/02/19 05:52 Glucose (Fingerstick) 148 mg/dL (70-99) 122 mg/dL (70-99) 119 mg/dL (70-99) 116 mg/dL (70-99) Test 11/02/19 06:00 White Blood Count 10.1 x10^3/uL (4.0-11.0) Red Blood Count 2.44 x10^6/uL (3.50-5.40) Hemoglobin 7.0 g/dL (12.0-15.5) Hematocrit 21.2 % (36.0-47.0) Mean Corpuscular Volume 87 fL (79-100) Mean Corpuscular Hemoglobin 29 pg (25-35) Mean Corpuscular Hemoglobin Concent 33 g/dL (31-37) Red Cell Distribution Width 14.8 % (11.5-14.5) Platelet Count 551 x10^3/uL (140-400) Neutrophils (%) (Auto) 77 % (31-73) Lymphocytes (%) (Auto) 10 % (24-48) Monocytes (%) (Auto) 10 % (0-9) Eosinophils (%) (Auto) 3 % (0-3) Basophils (%) (Auto) 0 % (0-3) Neutrophils # (Auto) 7.8 x10^3/uL (1.8-7.7) Lymphocytes # (Auto) 1.0 x10^3/uL (1.0-4.8) Monocytes # (Auto) 1.0 x10^3/uL (0.0-1.1) Eosinophils # (Auto) 0.3 x10^3/uL (0.0-0.7) Basophils # (Auto) 0.0 x10^3/uL (0.0-0.2) Sodium Level 135 mmol/L (136-145) Potassium Level 4.1 mmol/L (3.5-5.1) Chloride Level 102 mmol/L (98-107) Carbon Dioxide Level 30 mmol/L (21-32) Anion Gap 3 (6-14) Blood Urea Nitrogen 9 mg/dL (7-20) Creatinine 0.5 mg/dL (0.6-1.0) Estimated GFR (Cockcroft-Gault) 131.1 Glucose Level 126 mg/dL (70-99) Calcium Level 8.7 mg/dL (8.5-10.1) Micro Objective Assessment Patient with prolonged hospitalization more than 3 months Multiple medical problems Multiple surgical procedures S/P Exp. 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 parapsilosis & PSAE (I-merrem/ceftazidime/AZT/cefepime)) Leucocytosis -trending upward Fever Acute gallstone pancreatitis with persistent necrosis - 07/27. CT A/P Increased ascites. 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 status post AKYLIN drain placement; C. parapsilosis. s/p drain 08/23 + yeast & high amylase; s/p additional drain on 08/25. Drains removed. -08/23. fluid devyn parapsilosis fluid, amylase high - 09/23 showed multiple pseudocysts, slight larger on the right. s/p drains x 3, 09/24. + PSAE (MDRO-R Cefepime, Zosyn ALEXANDRA < 64) and yeast, -09/24 s/p drain replacement x 3; fluid cult PSAE (MDRO), yeast; treated -10/29 CT A/P shows smaller fluid collections. Ascites s/p paracentesis 08/02 & 08/23. C. parapsilosis Cholelithiasis with thickening of the gallbladder wall. JUANA, Hyperkalemia, Metabolic acidosis off dialysis Acute hypoxic resp failure. trach/vent. sputum 09/30 + PSAE (I merrem) Pleural effusions s/p left thoracentesis, 08/29. no culture. s/p left chest tube, 10/02 no growth Hypocalcemia Prediabetes HTN Anemia s/p PRBCs Plan Plan of Care Meropenem, cipro , micafungin and dapto repeat bc Labs in am wound care /drain management as directed Contact isolation for CRE/MDRO D/w nursing Critically ill rn long term care prognosis poor KIMMY JONES MD Nov 02, 2019 07:28
[2019-11-02] MEDS: PANTOPRAZOLE IV PUSH 40 MG VIAL. IVP SCH (07:45)
[2019-11-02] MEDS: ONDANSETRON PF 4 MG/2 ML VIAL. IV PRN (07:46)
[2019-11-02] MEDS: ACETAMINOPHEN 650 MG SUPP.RECT. PR PRN ×2 (08:14→19:52)
[2019-11-02] MEDS: MICAFUNGIN 100 MG in IV DEXTROSE 5% 100ML 100 ML IV SCH (08:15)
--- NOTE | 2019-11-02 08:38 | PDOC ---
SURGICAL PROGRESS NOTE Subjective awake d/w nurse--temp, increased respiratory rate today Vital Signs Vital Signs Date Time Temp Pulse Resp B/P (MAP) Pulse Ox O2 Delivery O2 Flow Rate FiO2 11/02/19 07:19 100 Tracheal Collar 8.0 11/02/19 06:00 125 31 141/81 (101) 11/02/19 04:00 100.8 100.8 I&O Intake and Output 11/02/19 06:59 Intake Total 3679.2 ml Output Total 4238 ml Balance -558.8 ml IV Total 3679.2 ml Tube Feeding 0 ml Output Urine Total 2285 ml Chest Tube Drainage Total 440 ml Drainage Total 1513 ml PATIENT HAS A ROSARIO: Yes General: Cooperative, No acute distress HEENT: Other (trach) Abdomen: Soft, Other (mulitple drains in place) Labs Laboratory Tests Test 10/31/19 10:00 10/31/19 18:03 11/01/19 00:50 11/01/19 00:53 Vancomycin Level Trough 25.0 mcg/mL (10.0-20.0) Vancomycin Last Dose Date 10-31-19 Vancomycin Last Dose Time 0230 Glucose (Fingerstick) 110 mg/dL (70-99) 120 mg/dL (70-99) Random Vancomycin Level 20.6 mcg/mL Test 11/01/19 05:40 11/01/19 05:50 11/01/19 12:34 11/01/19 17:49 Sodium Level 136 mmol/L (136-145) Potassium Level 4.0 mmol/L (3.5-5.1) Chloride Level 102 mmol/L (98-107) Carbon Dioxide Level 28 mmol/L (21-32) Anion Gap 6 (6-14) Blood Urea Nitrogen 9 mg/dL (7-20) Creatinine 0.5 mg/dL (0.6-1.0) Estimated GFR (Cockcroft-Gault) 131.1 Glucose Level 130 mg/dL (70-99) Calcium Level 8.4 mg/dL (8.5-10.1) Glucose (Fingerstick) 123 mg/dL (70-99) 148 mg/dL (70-99) 122 mg/dL (70-99) Test 11/02/19 00:06 11/02/19 05:52 11/02/19 06:00 Glucose (Fingerstick) 119 mg/dL (70-99) 116 mg/dL (70-99) White Blood Count 10.1 x10^3/uL (4.0-11.0) Red Blood Count 2.44 x10^6/uL (3.50-5.40) Hemoglobin 7.0 g/dL (12.0-15.5) Hematocrit 21.2 % (36.0-47.0) Mean Corpuscular Volume 87 fL (79-100) Mean Corpuscular Hemoglobin 29 pg (25-35) Mean Corpuscular Hemoglobin Concent 33 g/dL (31-37) Red Cell Distribution Width 14.8 % (11.5-14.5) Platelet Count 551 x10^3/uL (140-400) Neutrophils (%) (Auto) 77 % (31-73) Lymphocytes (%) (Auto) 10 % (24-48) Monocytes (%) (Auto) 10 % (0-9) Eosinophils (%) (Auto) 3 % (0-3) Basophils (%) (Auto) 0 % (0-3) Neutrophils # (Auto) 7.8 x10^3/uL (1.8-7.7) Lymphocytes # (Auto) 1.0 x10^3/uL (1.0-4.8) Monocytes # (Auto) 1.0 x10^3/uL (0.0-1.1) Eosinophils # (Auto) 0.3 x10^3/uL (0.0-0.7) Basophils # (Auto) 0.0 x10^3/uL (0.0-0.2) Sodium Level 135 mmol/L (136-145) Potassium Level 4.1 mmol/L (3.5-5.1) Chloride Level 102 mmol/L (98-107) Carbon Dioxide Level 30 mmol/L (21-32) Anion Gap 3 (6-14) Blood Urea Nitrogen 9 mg/dL (7-20) Creatinine 0.5 mg/dL (0.6-1.0) Estimated GFR (Cockcroft-Gault) 131.1 Glucose Level 126 mg/dL (70-99) Calcium Level 8.7 mg/dL (8.5-10.1) Laboratory Tests Test 11/01/19 12:34 11/01/19 17:49 11/02/19 00:06 11/02/19 05:52 Glucose (Fingerstick) 148 mg/dL (70-99) 122 mg/dL (70-99) 119 mg/dL (70-99) 116 mg/dL (70-99) Test 11/02/19 06:00 White Blood Count 10.1 x10^3/uL (4.0-11.0) Red Blood Count 2.44 x10^6/uL (3.50-5.40) Hemoglobin 7.0 g/dL (12.0-15.5) Hematocrit 21.2 % (36.0-47.0) Mean Corpuscular Volume 87 fL (79-100) Mean Corpuscular Hemoglobin 29 pg (25-35) Mean Corpuscular Hemoglobin Concent 33 g/dL (31-37) Red Cell Distribution Width 14.8 % (11.5-14.5) Platelet Count 551 x10^3/uL (140-400) Neutrophils (%) (Auto) 77 % (31-73) Lymphocytes (%) (Auto) 10 % (24-48) Monocytes (%) (Auto) 10 % (0-9) Eosinophils (%) (Auto) 3 % (0-3) Basophils (%) (Auto) 0 % (0-3) Neutrophils # (Auto) 7.8 x10^3/uL (1.8-7.7) Lymphocytes # (Auto) 1.0 x10^3/uL (1.0-4.8) Monocytes # (Auto) 1.0 x10^3/uL (0.0-1.1) Eosinophils # (Auto) 0.3 x10^3/uL (0.0-0.7) Basophils # (Auto) 0.0 x10^3/uL (0.0-0.2) Sodium Level 135 mmol/L (136-145) Potassium Level 4.1 mmol/L (3.5-5.1) Chloride Level 102 mmol/L (98-107) Carbon Dioxide Level 30 mmol/L (21-32) Anion Gap 3 (6-14) Blood Urea Nitrogen 9 mg/dL (7-20) Creatinine 0.5 mg/dL (0.6-1.0) Estimated GFR (Cockcroft-Gault) 131.1 Glucose Level 126 mg/dL (70-99) Calcium Level 8.7 mg/dL (8.5-10.1) Problem List Problems Medical Problems: (1) Acute pancreatitis Status: Acute (2) Cholelithiasis Status: Acute Assessment/Plan supportive care BC pending Justicifation of Admission Dx: Justifications for Admission: Justification of Admission Dx: Yes 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 FURNACE MECHANIC Nov 02, 2019 08:38
[2019-11-02] MEDS: CIPROFLOXACIN 400MG PREMIX 200 ML IV SCH ×2 (08:58→20:44)
[2019-11-02] MEDS: DAPTOmycin (GENERIC) IVPB 500 MG in IV NORMAL SALINE 50ML 50 ML IV SCH (08:59)
--- NOTE | 2019-11-02 09:22 | PDOC ---
PULMONARY PROGRESS NOTES Subjective Patient with no significant respiratory distress currently on trach shield Vitals Vital Signs Date Time Temp Pulse Resp B/P (MAP) Pulse Ox O2 Delivery O2 Flow Rate FiO2 11/02/19 07:19 100 Tracheal Collar 8.0 11/02/19 06:00 125 31 141/81 (101) 11/02/19 04:00 100.8 100.8 ROS: No Nausea, No Chest Pain, No Increase Cough General: Alert HEENT: Other (trach site ok) Lungs: Crackles Cardiovascular: S1, S2 Abdomen: Soft, Non-tender, Other (multiple KAYLIN drains ) Neuro Exam: Alert Extremities: Other (+1 BLE edema) Skin: Warm Labs Laboratory Tests Test 10/31/19 10:00 10/31/19 18:03 11/01/19 00:50 11/01/19 00:53 Vancomycin Level Trough 25.0 mcg/mL (10.0-20.0) Vancomycin Last Dose Date 10-31-19 Vancomycin Last Dose Time 0230 Glucose (Fingerstick) 110 mg/dL (70-99) 120 mg/dL (70-99) Random Vancomycin Level 20.6 mcg/mL Test 11/01/19 05:40 11/01/19 05:50 11/01/19 12:34 11/01/19 17:49 Sodium Level 136 mmol/L (136-145) Potassium Level 4.0 mmol/L (3.5-5.1) Chloride Level 102 mmol/L (98-107) Carbon Dioxide Level 28 mmol/L (21-32) Anion Gap 6 (6-14) Blood Urea Nitrogen 9 mg/dL (-20) Creatinine 0.5 mg/dL (0.6-1.0) Estimated GFR (Cockcroft-Gault) 131.1 Glucose Level 130 mg/dL (70-99) Calcium Level 8.4 mg/dL (8.5-10.1) Glucose (Fingerstick) 123 mg/dL (70-99) 148 mg/dL (70-99) 122 mg/dL (70-99) Test 11/02/19 00:06 11/02/19 05:52 11/02/19 06:00 Glucose (Fingerstick) 119 mg/dL (70-99) 116 mg/dL (70-99) White Blood Count 10.1 x10^3/uL (4.0-11.0) Red Blood Count 2.44 x10^6/uL (3.50-5.40) Hemoglobin 7.0 g/dL (12.0-15.5) Hematocrit 21.2 % (36.0-47.0) Mean Corpuscular Volume 87 fL (79-100) Mean Corpuscular Hemoglobin 29 pg (25-35) Mean Corpuscular Hemoglobin Concent 33 g/dL (31-37) Red Cell Distribution Width 14.8 % (11.5-14.5) Platelet Count 551 x10^3/uL (140-400) Neutrophils (%) (Auto) 77 % (31-73) Lymphocytes (%) (Auto) 10 % (24-48) Monocytes (%) (Auto) 10 % (0-9) Eosinophils (%) (Auto) 3 % (0-3) Basophils (%) (Auto) 0 % (0-3) Neutrophils # (Auto) 7.8 x10^3/uL (1.8-7.7) Lymphocytes # (Auto) 1.0 x10^3/uL (1.0-4.8) Monocytes # (Auto) 1.0 x10^3/uL (0.0-1.1) Eosinophils # (Auto) 0.3 x10^3/uL (0.0-0.7) Basophils # (Auto) 0.0 x10^3/uL (0.0-0.2) Sodium Level 135 mmol/L (136-145) Potassium Level 4.1 mmol/L (3.5-5.1) Chloride Level 102 mmol/L (98-107) Carbon Dioxide Level 30 mmol/L (21-32) Anion Gap 3 (6-14) Blood Urea Nitrogen 9 mg/dL (7-20) Creatinine 0.5 mg/dL (0.6-1.0) Estimated GFR (Cockcroft-Gault) 131.1 Glucose Level 126 mg/dL (70-99) Calcium Level 8.7 mg/dL (8.5-10.1) Laboratory Tests Test 11/01/19 12:34 11/01/19 17:49 11/02/19 00:06 11/02/19 05:52 Glucose (Fingerstick) 148 mg/dL (70-99) 122 mg/dL (70-99) 119 mg/dL (70-99) 116 mg/dL (70-99) Test 11/02/19 06:00 White Blood Count 10.1 x10^3/uL (4.0-11.0) Red Blood Count 2.44 x10^6/uL (3.50-5.40) Hemoglobin 7.0 g/dL (12.0-15.5) Hematocrit 21.2 % (36.0-47.0) Mean Corpuscular Volume 87 fL (79-100) Mean Corpuscular Hemoglobin 29 pg (25-35) Mean Corpuscular Hemoglobin Concent 33 g/dL (31-37) Red Cell Distribution Width 14.8 % (11.5-14.5) Platelet Count 551 x10^3/uL (140-400) Neutrophils (%) (Auto) 77 % (31-73) Lymphocytes (%) (Auto) 10 % (24-48) Monocytes (%) (Auto) 10 % (0-9) Eosinophils (%) (Auto) 3 % (0-3) Basophils (%) (Auto) 0 % (0-3) Neutrophils # (Auto) 7.8 x10^3/uL (1.8-7.7) Lymphocytes # (Auto) 1.0 x10^3/uL (1.0-4.8) Monocytes # (Auto) 1.0 x10^3/uL (0.0-1.1) Eosinophils # (Auto) 0.3 x10^3/uL (0.0-0.7) Basophils # (Auto) 0.0 x10^3/uL (0.0-0.2) Sodium Level 135 mmol/L (136-145) Potassium Level 4.1 mmol/L (3.5-5.1) Chloride Level 102 mmol/L (98-107) Carbon Dioxide Level 30 mmol/L (21-32) Anion Gap 3 (6-14) Blood Urea Nitrogen 9 mg/dL (7-20) Creatinine 0.5 mg/dL (0.6-1.0) Estimated GFR (Cockcroft-Gault) 131.1 Glucose Level 126 mg/dL (70-99) Calcium Level 8.7 mg/dL (8.5-10.1) Medications Active Scripts Medications Dose Route/Sig Max Daily Dose Days Date Category Bisoprolol Fumarate 5 Mg Tablet 10 Mg PO DAILY 07/04/[address] reviewed 10/30/19, Decreased left-sided effusion after catheter placement. The right-sided effusion has increased as has atelectasis. There has been exchange or placement of multiple drainage tubes and a gastrojejunostomy tube. Both collections are smaller. No significant new abdominal fluid collection is seen. The jejunal component of the gastrojejunostomy tube appears to be looped in the proximal small bowel. ct abdomen /pelvis 09/23 1. Removal of the percutaneous pigtail drainage catheters since the prior exam. Sequela of pancreatitis with extensive pseudocysts again demonstrated, the right-sided collections are slightly larger since the prior exam, the left-sided collections are stable. See above. 2. Moderate to large left pleural effusion with atelectasis and collapse of most of the left lower lobe, stable. Small right pleural effusion is stable. 3. Gallstone. ct chest 10/02 reviewed GRAM NEG COCCOBACILLI:MANY SQUAMOUS EPI CELL:RARE PMN (WBCs):FEW Unless otherwise specified, Testing Performed by: [address] [id number] For Inquires, the Physician may contact the Microbiology department at [phone] RESPIRATORY CULTURE Final Final MANY GRAM NEGATIVE RODS on 10/03/19 at 1107 FINAL ID= [PSEUDOMONAS [email or web address]] MICRO CHARGES PSEUDOMONAS AERUGINOSA ANTIMICROBIAL SUSCEPTIBILITY Final Comment NEG ALEXANDRA 56 PSEUDOMONAS AERUGINOSA ANTIBIOTIC RESULT INTERPRETATION AMIKACIN <=16 S AZTREONAM <=4 S CEFTAZIDIME <=1 S CIPROFLOXACIN <=0.25 S CEFEPIME <=2 S CEFTAZIDIME/AVIBACTAM <=4 S GENTAMICIN <=2 S LEVOFLOXACIN <=0.5 S Impression . IMPRESSION: 1. Acute hypoxemic respiratory failure secondary to ARDS status post trach, d eveloped anemia /, blood drainage from RLQ abdomen drain site, and surrounding firmness / developed septic shock 6/7 from abdomen source, required levo 6/7 s/p 3 new drains 6/7 with brown color drainage, 2. Gallstone pancreatitis, now with ongoing bleeding from prior drain. Anemic. s/p Tx multiple units over several days 3. septic shock/sepsis, recurrent 09/24, source abdomen. new fever ? aspiration pneumonitis/pneumonia 4. Acute kidney injury-, Off HD--renal function decling. suspect JUANA on CKD due to hypotension , improved now 5. Acute gallstone pancreatitis. 6. Hypoalbuminemia. 7. Moderate persistent effusions, s/p left thora 08/29, reaccumulation of left effusion. O2 requirement not changed. 8. Fever- ,hypotension. suspect recurrent sepsis/ likely pancreatic source. Per ID, per surgery-- 9. Chronic anemia-- ongoing / s/p PRBC 10. Covid 19 testing negative 11. Moderate to large ascites-S/P paracentisis 12.S/P paracentisis with 4 liters removed on 08/03/19 13. S/P IR drain placement on 08/26/2019, removal, re inserted 09/24 14. Depression/Anxiety 15., Fever, per ID 16. Status post chest tube placement, not much drainage 10/17 S/P Exploratory laparotomy, lysis of adhesions, subtotal cholecystectomy with cholangiogram, gastrojejunostomy tube placement, pancreatic necrosectomy leukocytosis- improving Plan . Chest tube drained a bit after Cathflo We will send pleural fluid for analysis, patient now with fever will defer further work-up to ID and surgery Continue trach shield Up to chair Follow culture Follow surgery input DVT GI prophylaxis ABX per ID f/u BC /resp cultures Continue TPN for nutrition support DVT/GI PPX D/W RN and RT, HARMEET BEE MD Nov 02, 2019 09:22
--- NOTE | 2019-11-02 11:10 | PDOC ---
G I PROGRESS NOTE Subjective Observed w/o entering room (MDRO/conserve PPE). Waves. Indicates "so-so". Physical Exam On trach shield. Multiple abdominal drains. Review of Relevant I have reviewed the following items kolby (where applicable) has been applied. Labs Laboratory Tests Test 10/31/19 18:03 11/01/19 00:50 11/01/19 00:53 11/01/19 05:40 Glucose (Fingerstick) 110 mg/dL (70-99) 120 mg/dL (70-99) Random Vancomycin Level 20.6 mcg/mL Sodium Level 136 mmol/L (136-145) Potassium Level 4.0 mmol/L (3.5-5.1) Chloride Level 102 mmol/L (98-107) Carbon Dioxide Level 28 mmol/L (21-32) Anion Gap 6 (6-14) Blood Urea Nitrogen 9 mg/dL (-20) Creatinine 0.5 mg/dL (0.6-1.0) Estimated GFR (Cockcroft-Gault) 131.1 Glucose Level 130 mg/dL (70-99) Calcium Level 8.4 mg/dL (8.5-10.1) Test 11/01/19 05:50 11/01/19 12:34 11/01/19 17:49 11/02/19 00:06 Glucose (Fingerstick) 123 mg/dL (70-99) 148 mg/dL (70-99) 122 mg/dL (70-99) 119 mg/dL (70-99) Test 11/02/19 05:52 11/02/19 06:00 Glucose (Fingerstick) 116 mg/dL (70-99) White Blood Count 10.1 x10^3/uL (4.0-11.0) Red Blood Count 2.44 x10^6/uL (3.50-5.40) Hemoglobin 7.0 g/dL (12.0-15.5) Hematocrit 21.2 % (36.0-47.0) Mean Corpuscular Volume 87 fL (79-100) Mean Corpuscular Hemoglobin 29 pg (25-35) Mean Corpuscular Hemoglobin Concent 33 g/dL (31-37) Red Cell Distribution Width 14.8 % (11.5-14.5) Platelet Count 551 x10^3/uL (140-400) Neutrophils (%) (Auto) 77 % (31-73) Lymphocytes (%) (Auto) 10 % (24-48) Monocytes (%) (Auto) 10 % (0-9) Eosinophils (%) (Auto) 3 % (0-3) Basophils (%) (Auto) 0 % (0-3) Neutrophils # (Auto) 7.8 x10^3/uL (1.8-7.7) Lymphocytes # (Auto) 1.0 x10^3/uL (1.0-4.8) Monocytes # (Auto) 1.0 x10^3/uL (0.0-1.1) Eosinophils # (Auto) 0.3 x10^3/uL (0.0-0.7) Basophils # (Auto) 0.0 x10^3/uL (0.0-0.2) Sodium Level 135 mmol/L (136-145) Potassium Level 4.1 mmol/L (3.5-5.1) Chloride Level 102 mmol/L (98-107) Carbon Dioxide Level 30 mmol/L (21-32) Anion Gap 3 (6-14) Blood Urea Nitrogen 9 mg/dL (7-20) Creatinine 0.5 mg/dL (0.6-1.0) Estimated GFR (Cockcroft-Gault) 131.1 Glucose Level 126 mg/dL (70-99) Calcium Level 8.7 mg/dL (8.5-10.1) Laboratory Tests Test 11/01/19 12:34 11/01/19 17:49 11/02/19 00:06 11/02/19 05:52 Glucose (Fingerstick) 148 mg/dL (70-99) 122 mg/dL (70-99) 119 mg/dL (70-99) 116 mg/dL (70-99) Test 11/02/19 06:00 White Blood Count 10.1 x10^3/uL (4.0-11.0) Red Blood Count 2.44 x10^6/uL (3.50-5.40) Hemoglobin 7.0 g/dL (12.0-15.5) Hematocrit 21.2 % (36.0-47.0) Mean Corpuscular Volume 87 fL (79-100) Mean Corpuscular Hemoglobin 29 pg (25-35) Mean Corpuscular Hemoglobin Concent 33 g/dL (31-37) Red Cell Distribution Width 14.8 % (11.5-14.5) Platelet Count 551 x10^3/uL (140-400) Neutrophils (%) (Auto) 77 % (31-73) Lymphocytes (%) (Auto) 10 % (24-48) Monocytes (%) (Auto) 10 % (0-9) Eosinophils (%) (Auto) 3 % (0-3) Basophils (%) (Auto) 0 % (0-3) Neutrophils # (Auto) 7.8 x10^3/uL (1.8-7.7) Lymphocytes # (Auto) 1.0 x10^3/uL (1.0-4.8) Monocytes # (Auto) 1.0 x10^3/uL (0.0-1.1) Eosinophils # (Auto) 0.3 x10^3/uL (0.0-0.7) Basophils # (Auto) 0.0 x10^3/uL (0.0-0.2) Sodium Level 135 mmol/L (136-145) Potassium Level 4.1 mmol/L (3.5-5.1) Chloride Level 102 mmol/L (98-107) Carbon Dioxide Level 30 mmol/L (21-32) Anion Gap 3 (6-14) Blood Urea Nitrogen 9 mg/dL (7-20) Creatinine 0.5 mg/dL (0.6-1.0) Estimated GFR (Cockcroft-Gault) 131.1 Glucose Level 126 mg/dL (70-99) Calcium Level 8.7 mg/dL (8.5-10.1) Microbiology 10/30/19 Gram Stain Evaluation - Final, Complete 10/30/19 Respiratory Culture - Final, Complete 10/30/19 Antimicrobic Susceptibility - Final, Complete 10/30/19 Blood Culture - Preliminary, Resulted NO GROWTH AFTER 3 DAYS 10/18/19 Gram Stain - Final, Complete 10/18/19 Aerobic and Anaerobic Culture - Final, Complete 10/18/19 Antimicrobic Susceptibility - Final, Complete 10/03/19 Gram Stain - Final, Complete 10/03/19 Aerobic and Anaerobic Culture - Final, Complete 09/25/19 Urine Culture - Final, Complete 09/17/19 Gram Stain - Final, Complete 09/17/19 Aerobic Culture - Final, Complete Vitals/I & O Vital Sign - Last 24 Hours 11/01/19 11/01/19 11/01/19 11/01/19 12:00 12:00 12:44 13:00 Temp 98.9 98.9 Pulse 96 133 Resp 41 34 B/P (MAP) 131/85 (100) 131/89 (103) Pulse Ox 96 100 96 O2 Delivery Tracheal Collar Trach Collar Tracheal Collar Tracheal Collar O2 Flow Rate 8.0 8.0 8.0 8.0 11/01/19 11/01/19 11/01/19 11/01/19 13:08 13:50 14:00 15:00 Pulse 128 128 Resp 37 35 33 34 B/P (MAP) 138/83 (101) 132/75 (94) Pulse Ox 100 99 100 99 O2 Delivery Tracheal Collar Tracheal Collar Tracheal Collar O2 Flow Rate 8.0 8.0 8.0 11/01/19 11/01/19 11/01/19 11/01/19 16:00 16:00 16:14 17:00 Temp 101.5 101.5 Pulse 126 130 Resp 30 36 B/P (MAP) 127/76 (93) 140/80 (100) Pulse Ox 100 100 100 O2 Delivery Trach Collar Tracheal Collar Tracheal Collar Tracheal Collar O2 Flow Rate 8.0 8.0 8.0 8.0 11/01/19 11/01/19 11/01/19 11/01/19 18:00 19:00 19:30 19:35 Pulse 125 122 Resp 34 32 B/P (MAP) 141/83 (102) 116/62 (80) Pulse Ox 99 98 100 100 O2 Delivery Tracheal Collar Tracheal Collar Tracheal Collar Tracheal Collar O2 Flow Rate 8.0 8.0 8.0 8.0 11/01/19 11/01/19 11/01/19 11/01/19 20:00 20:00 21:00 22:00 Temp 99.5 99.5 Pulse 120 118 114 Resp 33 37 32 B/P (MAP) 121/68 (85) 119/73 (88) 124/71 (88) Pulse Ox 100 96 99 O2 Delivery Tracheal Collar Trach Collar Tracheal Collar Tracheal Collar O2 Flow Rate 8.0 8.0 8.0 8.0 11/01/19 11/01/19 11/02/1920 23:00 23:20 00:00 00:00 Temp 98.8 98.8 Pulse 111 119 Resp 25 24 B/P (MAP) 134/83 (100) 131/83 (99) Pulse Ox 100 100 100 O2 Delivery Tracheal Collar Tracheal Collar Tracheal Collar Trach Collar O2 Flow Rate 8.0 8.0 8.0 8.0 11/02/19 11/02/19 11/02/19 11/02/19 01:00 02:00 03:00 03:38 Pulse 126 121 121 Resp 26 28 28 B/P (MAP) 139/83 (101) 128/87 (101) 141/84 (103) Pulse Ox 98 100 100 100 O2 Delivery Tracheal Collar Tracheal Collar Tracheal Collar Tracheal Collar O2 Flow Rate 8.0 8.0 8.0 8.0 11/02/19 11/02/19 11/02/19 11/02/19 04:00 04:00 05:00 06:00 Temp 100.8 100.8 Pulse 127 128 125 Resp 30 28 31 B/P (MAP) 151/81 (104) 133/73 (93) 141/81 (101) Pulse Ox 93 100 100 O2 Delivery Tracheal Collar Trach Collar Tracheal Collar Tracheal Collar O2 Flow Rate 8.0 8.0 8.0 8.0 11/02/19 07:19 Pulse Ox 100 O2 Delivery Tracheal Collar O2 Flow Rate 8.0 Intake and Output 11/01/19 11/01/19 11/02/19 15:00 23:00 07:00 Intake Total 1823.8 ml 379.4 ml 1476 ml Output Total 640 ml 1468 ml 2130 ml Balance 1183.8 ml -1088.6 ml -654 ml Problem List Problems Medical Problems: (1) Acute pancreatitis Status: Acute (2) Cholelithiasis Status: Acute Assessment Biliary pancreatitis, complicated, s/p operative inteventions. Stable with continuing issues. Plan of Care: Continue current Tx, Mgmt Justicifation of Admission Dx: Justifications for Admission: Justification of Admission Dx: Yes MARY RIVAS MD Nov 02, 2019 11:10
--- NOTE | 2019-11-02 13:52 | PDOC ---
PROGRESS NOTES Chief Complaint Chief Complaint A/P Acute hypoxic Respiratory failure required mechanical ventilation Tracheostomy bilateral pleural effusions/pulm edema s/p Throacentesis on 10/03/2019 Severe Acute gallstone pancreatitis (not a surgical candidate at this time) with necrosis Acute kidney failure now requiring dialysis Gallstones (Calculus of gallbladder with acute cholecystitis without obstruction) HTN Intractable pain Intractable nausea Covid 19 negative. Acute on chronic anemia EEG: No seizure activity Fever - intermittent ? Ileus with vomiting Abd distention - U/S and CT reviewed s/p 0.4 L of opaque, debris-containing ascites was removed 08/23 Acute pancreatitis with persistent necrosis Gallstone pancreatitis with necrosis. -CT A/P 09/23 showed multiple pseudocysts, slight larger on the right. s/p drains x 3, 09/24. + PSAE (MDRO-R Cefepime, Zosyn ALEXANDRA < 64) and yeast, -s/p drain 08/14. C. parapsilosis. s/p drain 08/23 + yeast & high amylase; s/p additional drain on 08/25. Drains removed. Ascites s/p paracentesis 08/02 & 08/23. C. parapsilosis JUANA. off HD. A large fluid collection in the pancreatic bed has slightly decreased in size, described below, the pancreas itself is difficult to visualize, which could be due to necrosis or obscuration of pancreatic parenchyma from the surrounding fluid collection.10/02 - 08/14 status post KAYLIN drain placement + C paropsilosis. s/p additional drains 08/25 Anemia - S/p PRBCs. Cholelithiasis with thickening of the gallbladder wall. Leucocytosis improving JUANA, hyperkalemia, Metabolic acidosis off dialysis hypocalcemia Prediabetes HTN s/p trach ESRD on HD Hyperglycemia severe protein-caloric malnutrition Moderate to large left pleural effusion with atelectasis and collapse of most of the left lower lobe, stable Dispo - ICU, critically ill Chest tube drained a bit after Cathflo TPN per nutrition check blood cultures and fluid cultures given fever meropenam, cipro, micafungin per ID Continue trach shield ID, gen sx, GI, pulm following DVT GI prophylaxis Continue TPN for nutrition support critically ill poor prognosis labs AM. watch Hb. 7.0 this AM History of Present Illness History of Present Illness fever overnight. blood cultures drawn. no complaints. Vitals Vitals Vital Signs Date Time Temp Pulse Resp B/P (MAP) Pulse Ox O2 Delivery O2 Flow Rate FiO2 11/02/19 12:00 Trach Collar 8.0 11/02/19 11:55 100 11/02/19 06:00 125 31 141/81 (101) 11/02/19 04:00 100.8 100.8 Physical Exam Physical Exam GENERAL: Propped up in bed, awake, weak appearing HEENT: Pupils equal, oral cavity dry. NGT out, on vent NECK: Tracheostomy LUNGS: Diminished aeration bases, CT on left HEART: S1, S2, regular, tachy ABDOMEN: Sightly less distended, bowel sounds hypoactive, soft, goyal x 2, 3 KAYLIN drains, G-J tube and + wound vac : Lind in place EXTREMITIES: Generalized edema, no cyanosis. SCDs & Podus boots bilaterally, SKIN: warm touch. No signs of rash. NEURO: awake, mouthing some words, tracking LUE-PICC without signs of complications LUE art-line out, mottling about old art-line site is improving. RP palpable, cap refill brisk. General: Cooperative, No acute distress Heart: Regular rate (SR/ST), Other (distant heart sounds) Lungs: Crackles Abdomen: Soft, Other (mulitple drains in place) Extremities: Other (Diffuse edema) Skin: No rashes, No significant lesion Labs LABS Laboratory Tests Test 11/01/19 17:49 11/02/19 00:06 11/02/19 05:52 11/02/19 06:00 Glucose (Fingerstick) 122 mg/dL (70-99) 119 mg/dL (70-99) 116 mg/dL (70-99) White Blood Count 10.1 x10^3/uL (4.0-11.0) Red Blood Count 2.44 x10^6/uL (3.50-5.40) Hemoglobin 7.0 g/dL (12.0-15.5) Hematocrit 21.2 % (36.0-47.0) Mean Corpuscular Volume 87 fL (79-100) Mean Corpuscular Hemoglobin 29 pg (25-35) Mean Corpuscular Hemoglobin Concent 33 g/dL (31-37) Red Cell Distribution Width 14.8 % (11.5-14.5) Platelet Count 551 x10^3/uL (140-400) Neutrophils (%) (Auto) 77 % (31-73) Lymphocytes (%) (Auto) 10 % (24-48) Monocytes (%) (Auto) 10 % (0-9) Eosinophils (%) (Auto) 3 % (0-3) Basophils (%) (Auto) 0 % (0-3) Neutrophils # (Auto) 7.8 x10^3/uL (1.8-7.7) Lymphocytes # (Auto) 1.0 x10^3/uL (1.0-4.8) Monocytes # (Auto) 1.0 x10^3/uL (0.0-1.1) Eosinophils # (Auto) 0.3 x10^3/uL (0.0-0.7) Basophils # (Auto) 0.0 x10^3/uL (0.0-0.2) Sodium Level 135 mmol/L (136-145) Potassium Level 4.1 mmol/L (3.5-5.1) Chloride Level 102 mmol/L (98-107) Carbon Dioxide Level 30 mmol/L (21-32) Anion Gap 3 (6-14) Blood Urea Nitrogen 9 mg/dL (7-20) Creatinine 0.5 mg/dL (0.6-1.0) Estimated GFR (Cockcroft-Gault) 131.1 Glucose Level 126 mg/dL (70-99) Calcium Level 8.7 mg/dL (8.5-10.1) Assessment and Plan Assessmemt and Plan Problems Medical Problems: (1) Acute pancreatitis Status: Acute (2) Cholelithiasis Status: Acute Comment Review of Relevant I have reviewed the following items kolby (where applicable) has been applied. Labs Laboratory Tests Test 10/31/19 18:03 11/01/19 00:50 11/01/19 00:53 11/01/19 05:40 Glucose (Fingerstick) 110 mg/dL (70-99) 120 mg/dL (70-99) Random Vancomycin Level 20.6 mcg/mL Sodium Level 136 mmol/L (136-145) Potassium Level 4.0 mmol/L (3.5-5.1) Chloride Level 102 mmol/L (98-107) Carbon Dioxide Level 28 mmol/L (21-32) Anion Gap 6 (6-14) Blood Urea Nitrogen 9 mg/dL (7-20) Creatinine 0.5 mg/dL (0.6-1.0) Estimated GFR (Cockcroft-Gault) 131.1 Glucose Level 130 mg/dL (70-99) Calcium Level 8.4 mg/dL (8.5-10.1) Test 11/01/19 05:50 11/01/19 12:34 11/01/19 17:49 11/02/19 00:06 Glucose (Fingerstick) 123 mg/dL (70-99) 148 mg/dL (70-99) 122 mg/dL (70-99) 119 mg/dL (70-99) Test 11/02/19 05:52 11/02/19 06:00 Glucose (Fingerstick) 116 mg/dL (70-99) White Blood Count 10.1 x10^3/uL (4.0-11.0) Red Blood Count 2.44 x10^6/uL (3.50-5.40) Hemoglobin 7.0 g/dL (12.0-15.5) Hematocrit 21.2 % (36.0-47.0) Mean Corpuscular Volume 87 fL (79-100) Mean Corpuscular Hemoglobin 29 pg (25-35) Mean Corpuscular Hemoglobin Concent 33 g/dL (31-37) Red Cell Distribution Width 14.8 % (11.5-14.5) Platelet Count 551 x10^3/uL (140-400) Neutrophils (%) (Auto) 77 % (31-73) Lymphocytes (%) (Auto) 10 % (24-48) Monocytes (%) (Auto) 10 % (0-9) Eosinophils (%) (Auto) 3 % (0-3) Basophils (%) (Auto) 0 % (0-3) Neutrophils # (Auto) 7.8 x10^3/uL (1.8-7.7) Lymphocytes # (Auto) 1.0 x10^3/uL (1.0-4.8) Monocytes # (Auto) 1.0 x10^3/uL (0.0-1.1) Eosinophils # (Auto) 0.3 x10^3/uL (0.0-0.7) Basophils # (Auto) 0.0 x10^3/uL (0.0-0.2) Sodium Level 135 mmol/L (136-145) Potassium Level 4.1 mmol/L (3.5-5.1) Chloride Level 102 mmol/L (98-107) Carbon Dioxide Level 30 mmol/L (21-32) Anion Gap 3 (6-14) Blood Urea Nitrogen 9 mg/dL (7-20) Creatinine 0.5 mg/dL (0.6-1.0) Estimated GFR (Cockcroft-Gault) 131.1 Glucose Level 126 mg/dL (70-99) Calcium Level 8.7 mg/dL (8.5-10.1) Laboratory Tests Test 11/01/19 17:49 11/02/19 00:06 11/02/19 05:52 11/02/19 06:00 Glucose (Fingerstick) 122 mg/dL (70-99) 119 mg/dL (70-99) 116 mg/dL (70-99) White Blood Count 10.1 x10^3/uL (4.0-11.0) Red Blood Count 2.44 x10^6/uL (3.50-5.40) Hemoglobin 7.0 g/dL (12.0-15.5) Hematocrit 21.2 % (36.0-47.0) Mean Corpuscular Volume 87 fL (79-100) Mean Corpuscular Hemoglobin 29 pg (25-35) Mean Corpuscular Hemoglobin Concent 33 g/dL (31-37) Red Cell Distribution Width 14.8 % (11.5-14.5) Platelet Count 551 x10^3/uL (140-400) Neutrophils (%) (Auto) 77 % (31-73) Lymphocytes (%) (Auto) 10 % (24-48) Monocytes (%) (Auto) 10 % (0-9) Eosinophils (%) (Auto) 3 % (0-3) Basophils (%) (Auto) 0 % (0-3) Neutrophils # (Auto) 7.8 x10^3/uL (1.8-7.7) Lymphocytes # (Auto) 1.0 x10^3/uL (1.0-4.8) Monocytes # (Auto) 1.0 x10^3/uL (0.0-1.1) Eosinophils # (Auto) 0.3 x10^3/uL (0.0-0.7) Basophils # (Auto) 0.0 x10^3/uL (0.0-0.2) Sodium Level 135 mmol/L (136-145) Potassium Level 4.1 mmol/L (3.5-5.1) Chloride Level 102 mmol/L (98-107) Carbon Dioxide Level 30 mmol/L (21-32) Anion Gap 3 (6-14) Blood Urea Nitrogen 9 mg/dL (7-20) Creatinine 0.5 mg/dL (0.6-1.0) Estimated GFR (Cockcroft-Gault) 131.1 Glucose Level 126 mg/dL (70-99) Calcium Level 8.7 mg/dL (8.5-10.1) Microbiology 10/30/19 Gram Stain Evaluation - Final, Complete 10/30/19 Respiratory Culture - Final, Complete 10/30/19 Antimicrobic Susceptibility - Final, Complete 10/30/19 Blood Culture - Preliminary, Resulted NO GROWTH AFTER 3 DAYS 10/18/19 Gram Stain - Final, Complete 10/18/19 Aerobic and Anaerobic Culture - Final, Complete 10/18/19 Antimicrobic Susceptibility - Final, Complete 10/03/19 Gram Stain - Final, Complete 10/03/19 Aerobic and Anaerobic Culture - Final, Complete 09/25/19 Urine Culture - Final, Complete 09/17/19 Gram Stain - Final, Complete 09/17/19 Aerobic Culture - Final, Complete Medications Current Medications Sodium Chloride 1,000 ml @ 1,000 mls/hr Q1H IV Last administered on 07/04/19at 03:00; Start 07/04/19 at 03:00; Stop 07/04/19 at 03:59; Status DC Ondansetron HCl (Zofran) 4 mg 1X ONCE IVP Last administered on 07/04/19at 03:27; Start 07/04/19 at 03:00; Stop 07/04/19 at 03:01; Status DC Morphine Sulfate (Morphine Sulfate) 4 mg 1X ONCE IV ; Start 07/04/19 at 03:00; Stop 07/04/19 at 03:01; Status Cancel Ketorolac Tromethamine (Toradol 30mg Vial) 30 mg 1X ONCE IV Last administered on 07/04/19at 02:54; Start 07/04/19 at 03:00; Stop 07/04/19 at 03:01; Status DC Fentanyl Citrate (Fentanyl 2ml Vial) 25 mcg 1X ONCE IVP Last administered on 07/04/19at 03:23; Start 07/04/19 at 03:30; Stop 07/04/19 at 03:31; Status DC Fentanyl Citrate (Fentanyl 2ml Vial) 100 mcg STK-MED ONCE .ROUTE ; Start 07/04/19 at 03:18; Stop 07/04/19 at 03:18; Status DC Iohexol (Omnipaque 350 Mg/ml) 90 ml 1X ONCE IV Last administered on 07/04/19at 03:25; Start 07/04/19 at 03:30; Stop 07/04/19 at 03:31; Status DC Info (CONTRAST GIVEN -- Rx MONITORING) 1 each PRN DAILY PRN MC SEE COMMENTS; Start 07/04/19 at 03:30; Stop 07/06/19 at 03:29; Status DC Hydromorphone HCl (Dilaudid) 0.5 mg 1X ONCE IV Last administered on 07/04/19at 03:55; Start 07/04/19 at 04:30; Stop 07/04/19 at 04:32; Status DC Ondansetron HCl (Zofran) 4 mg PRN Q8HRS PRN IV NAUSEA/VOMITING 1ST CHOICE; Start 07/04/19 at 05:00; Stop 07/04/19 at 09:27; Status DC Morphine Sulfate (Morphine Sulfate) 2 mg PRN Q2HR PRN IV SEVERE PAIN 7-10 Last administered on 07/05/19at 12:26; Start 07/04/19 at 05:00; Stop 07/05/19 at 14:15; Status DC Sodium Chloride 1,000 ml @ 125 mls/hr Q8H IV Last administered on 07/04/19at 20:56; Start 07/04/19 at 05:00; Stop 07/05/19 at 04:59; Status DC Hydromorphone HCl (Dilaudid) 0.5 mg PRN Q3HRS PRN IV SEVERE PAIN 7-10 Last administered on 07/05/19at 10:06; Start 07/04/19 at 05:00; Stop 07/05/19 at 12:01; Status DC Piperacillin Sod/ Tazobactam Sod 4.5 gm/Sodium Chloride 100 ml @ 200 mls/hr 1X ONCE IV Last administered on 07/04/19at 05:44; Start 07/04/19 at 06:00; Stop 07/04/19 at 06:29; Status DC Ondansetron HCl (Zofran) 4 mg PRN Q4HRS PRN IV NAUSEA/VOMITING 1ST CHOICE Last administered on 11/02/19at 07:46; Start 07/04/19 at 09:30 Insulin Human Lispro (HumaLOG) 0-9 UNITS Q6HRS SQ Last administered on 10/30/19at 12:43; Start 07/04/19 at 09:30 Dextrose (Dextrose 50%-Water Syringe) 12.5 gm PRN Q15MIN PRN IV SEE COMMENTS; Start 07/04/19 at 09:30 Pantoprazole Sodium (PROTONIX VIAL for IV PUSH) 40 mg DAILYAC IVP Last administered on 11/02/19at 07:45; Start 07/04/19 at 11:30 Prochlorperazine Edisylate (Compazine) 10 mg PRN Q6HRS PRN IV NAUSEA/VOMITING, 2nd CHOICE Last administered on 10/31/19at 20:17; Start 07/04/19 at 17:45 Atenolol (Tenormin) 100 mg DAILY PO ; Start 07/05/19 at 09:00; Stop 07/04/19 at 20:08; Status DC Metoprolol Tartrate (Lopressor Vial) 2.5 mg Q6HRS IVP Last administered on 07/05/19at 05:51; Start 07/04/19 at 20:15; Stop 07/05/19 at 10:02; Status DC Metoprolol Tartrate (Lopressor Vial) 5 mg Q6HRS IVP Last administered on 07/14/19at 00:12; Start 07/05/19 at 10:15; Stop 07/16/19 at 08:48; Status DC Hydromorphone HCl (Dilaudid) 1 mg PRN Q3HRS PRN IV SEVERE PAIN 7-10 Last administered on 07/11/19at 05:13; Start 07/05/19 at 12:00; Stop 07/19/19 at 00:25; Status DC Lidocaine HCl (Buffered Lidocaine 1%) 3 ml STK-MED ONCE .ROUTE ; Start 07/05/19 at 12:55; Stop 07/05/19 at 12:56; Status DC Albumin Human 500 ml @ 125 mls/hr 1X ONCE IV Last administered on 07/05/19at 14:33; Start 07/05/19 at 14:30; Stop 07/05/19 at 18:32; Status DC Norepinephrine Bitartrate 8 mg/ Dextrose 258 ml @ 17.299 mls/ hr CONT PRN IV PER PROTOCOL Last administered on 08/02/19at 12:48; Start 07/05/19 at 15:30; Stop 08/05/19 at 09:19; Status DC Sodium Chloride 1,000 ml @ 125 mls/hr Q8H IV Last administered on 07/05/19at 21:04; Start 07/05/19 at 16:00; Stop 07/06/19 at 02:42; Status DC Albumin Human 500 ml @ 125 mls/hr PRN BID PRN IV After every 2L NSS & BP < 90mm Last administered on 10/18/19at 16:06; Start 07/05/19 at 16:00; Stop 10/21/19 at 09:30; Status DC Iohexol (Omnipaque 300 Mg/ml) 60 ml 1X ONCE IV Last administered on 07/05/19at 17:20; Start 07/05/19 at 17:00; Stop 07/05/19 at 17:01; Status DC Info (CONTRAST GIVEN -- Rx MONITORING) 1 each PRN DAILY PRN MC SEE COMMENTS; Start 07/05/19 at 17:00; Stop 07/07/19 at 16:59; Status DC Meropenem 1 gm/ Sodium Chloride 100 ml @ 200 mls/hr Q8HRS IV Last administered on 07/06/19at 05:45; Start 07/05/19 at 20:00; Stop 07/06/19 at 08:48; Status DC Furosemide (Lasix) 40 mg 1X ONCE IVP Last administered on 07/05/19at 22:12; Start 07/05/19 at 22:30; Stop 07/05/19 at 22:31; Status DC Calcium Chloride 1000 mg/Sodium Chloride 110 ml @ 220 mls/hr 1X ONCE IV Last administered on 07/05/19at 22:11; Start 07/05/19 at 22:30; Stop 07/05/19 at 22:59; Status DC Albuterol Sulfate (Ventolin Neb Soln) 2.5 mg 1X ONCE NEB Last administered on 07/06/19at 00:56; Start 07/05/19 at 22:30; Stop 07/05/19 at 22:31; Status DC Insulin Human Regular (HumuLIN R VIAL) 5 unit 1X ONCE IV Last administered on 07/05/19at 22:14; Start 07/05/19 at 22:30; Stop 07/05/19 at 22:31; Status DC Magnesium Sulfate 50 ml @ 25 mls/hr 1X ONCE IV Last administered on 07/06/19at 02:57; Start 07/06/19 at 03:00; Stop 07/06/19 at 04:59; Status DC Calcium Gluconate 1000 mg/Sodium Chloride 110 ml @ 220 mls/hr 1X ONCE IV Last administered on 07/06/19at 02:46; Start 07/06/19 at 03:00; Stop 07/06/19 at 03:29; Status DC Sodium Chloride 1,000 ml @ 200 mls/hr Q5H IV Last administered on 07/06/19at 02:46; Start 07/06/19 at 03:00; Stop 07/06/19 at 10:21; Status DC Calcium Gluconate 1000 mg/Sodium Chloride 110 ml @ 220 mls/hr 1X ONCE IV Last administered on 07/06/19at 03:21; Start 07/06/19 at 03:30; Stop 07/06/19 at 03:59; Status DC Sodium Bicarbonate 50 meq/Sodium Chloride 1,050 ml @ 75 mls/hr Q14H IV Last administered on 07/10/19at 21:10; Start 07/06/19 at 07:30; Stop 07/11/19 at 10:28; Status DC Calcium Gluconate 2000 mg/Sodium Chloride 120 ml @ 220 mls/hr 1X ONCE IV Last administered on 07/06/19at 09:05; Start 07/06/19 at 07:30; Stop 07/06/19 at 08:02; Status DC Lidocaine HCl (Xylocaine-Mpf 1% 2ml Vial) 2 ml STK-MED ONCE .ROUTE ; Start 07/06/19 at 08:47; Stop 07/06/19 at 08:47; Status DC Meropenem 500 mg/ Sodium Chloride 50 ml @ 100 mls/hr Q12HR IV Last administered on 07/11/19at 21:01; Start 07/06/19 at 18:00; Stop 07/12/19 at 07:58; Status DC Lidocaine HCl (Buffered Lidocaine 1%) 3 ml STK-MED ONCE .ROUTE ; Start 07/06/19 at 09:46; Stop 07/06/19 at 09:46; Status DC Lidocaine HCl (Buffered Lidocaine 1%) 6 ml 1X ONCE INJ Last administered on 07/06/19at 10:26; Start 07/06/19 at 10:15; Stop 07/06/19 at 10:16; Status DC Info (Tpn Per Pharmacy) 1 each PRN DAILY PRN MC SEE COMMENTS Last administered on 11/01/19at 10:47; Start 07/06/19 at 12:00 Sodium Chloride 1,000 ml @ 1,000 mls/hr Q1H PRN IV hypotension; Start 07/06/19 at 12:07; Stop 07/06/19 at 18:06; Status DC Diphenhydramine HCl (Benadryl) 25 mg 1X PRN PRN IV ITCHING; Start 07/06/19 at 12:15; Stop 07/07/19 at 12:14; Status DC Diphenhydramine HCl (Benadryl) 25 mg 1X PRN PRN IV ITCHING; Start 07/06/19 at 12:15; Stop 07/07/19 at 12:14; Status DC Sodium Chloride 1,000 ml @ 400 mls/hr Q2H30M PRN IV PATENCY; Start 07/06/19 at 12:07; Stop 07/07/19 at 00:06; Status DC Info (PHARMACY MONITORING -- do not chart) 1 each PRN DAILY PRN MC SEE COMMENTS; Start 07/06/19 at 12:15; Stop 07/08/19 at 08:13; Status DC Sodium Chloride 90 meq/Calcium Gluconate 10 meq/ Multivitamins 10 ml/Chromium/ Copper/Manganese/ Seleni/Zn 1 ml/ Total Parenteral Nutrition/Amino Acids/Dextrose/ Fat Emulsion Intravenous 55.005 ml @ 2.292 mls/hr TPN CONT IV ; Start 07/06/19 at 22:00; Stop 07/06/19 at 12:33; Status DC Info (Tpn Per Pharmacy) 1 each PRN DAILY PRN MC SEE COMMENTS; Start 07/06/19 at 12:30; Status UNV Sodium Chloride 90 meq/Calcium Gluconate 10 meq/ Multivitamins 10 ml/Chromium/ Copper/Manganese/ Seleni/Zn 0.5 ml/ Total Parenteral Nutrition/Amino Acids/Dextrose/ Fat Emulsion Intravenous 1,512 ml @ 63 mls/hr TPN CONT IV Last administered on 07/06/19at 22:06; Start 07/06/19 at 22:00; Stop 07/07/19 at 21:59; Status DC Calcium Carbonate/ Glycine (Tums) 500 mg PRN AFTMEALHC PRN PO INDIGESTION; Start 07/06/19 at 17:45; Stop 08/31/19 at 10:25; Status DC Calcium Gluconate (Calcium Gluconate) 2,000 mg 1X ONCE IVP Last administered on 07/07/19at 02:19; Start 07/07/19 at 02:15; Stop 07/07/19 at 02:16; Status DC Calcium Chloride 3000 mg/Sodium Chloride 1,030 ml @ 50 mls/hr [id number] IV Last administered on 07/09/19at 02:17; Start 07/07/19 at 08:00; Stop 07/09/19 at 15:23; Status DC Lorazepam (Ativan Inj) 1 mg PRN Q4HRS PRN IVP ANXIETY / AGITATION, 2nd choic Last administered on 08/05/19at 03:51; Start 07/07/19 at 09:00; Stop 08/05/19 at 09:19; Status DC Sodium Chloride 1,000 ml @ 1,000 mls/hr Q1H PRN IV hypotension; Start 07/07/19 at 08:56; Stop 07/07/19 at 14:55; Status DC Albumin Human 200 ml @ 200 mls/hr 1X PRN PRN IV Hypotension; Start 07/07/19 at 09:00; Stop 07/07/19 at 14:59; Status DC Diphenhydramine HCl (Benadryl) 25 mg 1X PRN PRN IV ITCHING; Start 07/07/19 at 09:00; Stop 07/08/19 at 08:59; Status DC Diphenhydramine HCl (Benadryl) 25 mg 1X PRN PRN IV ITCHING; Start 07/07/19 at 09:00; Stop 07/08/19 at 08:59; Status DC Sodium Chloride 1,000 ml @ 400 mls/hr Q2H30M PRN IV PATENCY; Start 07/07/19 at 08:56; Stop 07/07/19 at 20:55; Status DC Info (PHARMACY MONITORING -- do not chart) 1 each PRN DAILY PRN MC SEE COMMENTS; Start 07/07/19 at 09:00; Status UNV Info (PHARMACY MONITORING -- do not chart) 1 each PRN DAILY PRN MC SEE COMME NTS; Start 07/07/19 at 09:00; Stop 07/08/19 at 08:13; Status DC Digoxin (Lanoxin) 500 mcg 1X ONCE IV Last administered on 07/07/19at 10:04; Start 07/07/19 at 10:00; Stop 07/07/19 at 10:01; Status DC Digoxin (Lanoxin) 125 mcg 1X ONCE IV Last administered on 07/07/19at 17:10; Start 07/07/19 at 18:00; Stop 07/07/19 at 18:01; Status DC Magnesium Sulfate 100 ml @ 25 mls/hr 1X ONCE IV Last administered on 07/07/19at 12:48; Start 07/07/19 at 13:00; Stop 07/07/19 at 16:59; Status DC Sodium Chloride 90 meq/Magnesium Sulfate 10 meq/ Calcium Gluconate 20 meq/ Multivitamins 10 ml/Chromium/ Copper/Manganese/ Seleni/Zn 0.5 ml/ Total Paren teral Nutrition/Amino Acids/Dextrose/ Fat Emulsion Intravenous 1,512 ml @ 63 mls/hr TPN CONT IV Last administered on 07/07/19at 22:25; Start 07/07/19 at 22:00; Stop 07/08/19 at 21:59; Status DC Sodium Chloride 1,000 ml @ 1,000 mls/hr Q1H PRN IV hypotension; Start 07/08/19 at 08:05; Stop 07/08/19 at 14:04; Status DC Albumin Human 200 ml @ 200 mls/hr 1X ONCE IV Last administered on 07/08/19at 08:57; Start 07/08/19 at 08:15; Stop 07/08/19 at 09:14; Status DC Diphenhydramine HCl (Benadryl) 25 mg 1X PRN PRN IV ITCHING; Start 07/08/19 at 08:15; Stop 07/09/19 at 08:14; Status DC Diphenhydramine HCl (Benadryl) 25 mg 1X PRN PRN IV ITCHING; Start 07/08/19 at 08:15; Stop 07/09/19 at 08:14; Status DC Sodium Chloride 1,000 ml @ 400 mls/hr Q2H30M PRN IV PATENCY; Start 07/08/19 at 08:05; Stop 07/08/19 at 20:04; Status DC Info (PHARMACY MONITORING -- do not chart) 1 each PRN DAILY PRN MC SEE COMMENTS; Start 07/08/19 at 08:15; Stop 07/12/19 at 07:57; Status DC Sodium Chloride 90 meq/Potassium Chloride 15 meq/ Potassium Phosphate 10 mmol/ Magnesium Sulfate 10 meq/Calcium Gluconate 20 meq/ Multivitamins 10 ml/Chromium/ Copper/Manganese/ Seleni/Zn 0.5 ml/ Total Parenteral Nutrition/Amino Acids/Dextrose/ Fat Emulsion Intravenous 1,512 ml @ 63 mls/hr TPN CONT IV Last administered on 07/08/19at 21:01; Start 07/08/19 at 22:00; Stop 07/09/19 at 21:59; Status DC Potassium Chloride/Water 100 ml @ 100 mls/hr 1X ONCE IV Last administered on 07/08/19at 14:09; Start 07/08/19 at 14:00; Stop 07/08/19 at 14:59; Status DC Benzocaine (Hurricaine One) 1 spray 1X ONCE MM Last administered on 07/08/19at 16:38; Start 07/08/19 at 14:30; Stop 07/08/19 at 14:31; Status DC Lidocaine HCl (Glydo (Lidocaine) Jelly) 1 ramu 1X ONCE MM Last administered on 07/08/19at 16:38; Start 07/08/19 at 14:30; Stop 07/08/19 at 14:31; Status DC Linezolid/Dextrose 300 ml @ 300 mls/hr Q12HR IV Last administered on 07/14/19at 21:04; Start 07/08/19 at 20:00; Stop 07/15/19 at 07:50; Status DC Acetaminophen (Tylenol) 650 mg PRN Q6HRS PRN PO MILD PAIN / TEMP; Start 07/09/19 at 03:30; Stop 07/09/19 at 03:36; Status DC Acetaminophen (Tylenol) 650 mg PRN Q6HRS PRN PEG MILD PAIN / TEMP Last administered on 08/04/19at 19:56; Start 07/09/19 at 03:36; Stop 08/31/19 at 10:25; Status DC Sodium Chloride 1,000 ml @ 1,000 mls/hr Q1H PRN IV hypotension; Start 07/09/19 at 07:50; Stop 07/09/19 at 13:49; Status DC Albumin Human 200 ml @ 200 mls/hr 1X PRN PRN IV Hypotension; Start 07/09/19 at 08:00; Stop 07/09/19 at 13:59; Status DC Sodium Chloride (Normal Saline Flush) 10 ml 1X PRN PRN IV AP catheter pack; Start 07/09/19 at 08:00; Stop 07/10/19 at 07:59; Status DC Sodium Chloride (Normal Saline Flush) 10 ml 1X PRN PRN IV NURSING PROGRAM COORDINATOR catheter pack; Start 07/09/19 at 08:00; Stop 07/10/19 at 07:59; Status DC Sodium Chloride 1,000 ml @ 400 mls/hr Q2H30M PRN IV PATENCY; Start 07/09/19 at 07:50; Stop 07/09/19 at 19:49; Status DC Info (PHARMACY MONITORING -- do not chart) 1 each PRN DAILY PRN MC SEE COMMENTS; Start 07/09/19 at 08:00; Status UNV Info (PHARMACY MONITORING -- do not chart) 1 each PRN DAILY PRN MC SEE COMMENTS; Start 07/09/19 at 08:00; Stop 07/11/19 at 08:25; Status DC Sodium Chloride 90 meq/Potassium Chloride 15 meq/ Potassium Phosphate 10 mmol/ Magnesium Sulfate 10 meq/Calcium Gluconate 20 meq/ Multivitamins 10 ml/Chromium/ Copper/Manganese/ Seleni/Zn 0.5 ml/ Total Parenteral Nutrition/Amino Acids/Dextrose/ Fat Emulsion Intravenous 1,512 ml @ 63 mls/hr TPN CONT IV Last administered on 07/09/19at 20:57; Start 07/09/19 at 22:00; Stop 07/10/19 at 21:59; Status DC Sodium Chloride 90 meq/Potassium Chloride 15 meq/ Potassium Phosphate 15 mmol/ Magnesium Sulfate 10 meq/Calcium Gluconate 20 meq/ Multivitamins 10 ml/Chromium/ Copper/Manganese/ Seleni/Zn 0.5 ml/ Total Parenteral Nutrition/Amino Acids/Dextrose/ Fat Emulsion Intravenous 1,512 ml @ 63 mls/hr TPN CONT IV ; Start 07/10/19 at 22:00; Stop 07/10/19 at 14:16; Status DC Sodium Chloride 90 meq/Potassium Chloride 15 meq/ Potassium Phosphate 15 mmol/ Magnesium Sulfate 10 meq/Calcium Gluconate 20 meq/ Multivitamins 10 ml/Chromium/ Copper/Manganese/ Seleni/Zn 0.5 ml/ Total Parenteral Nutrition/Amino Acids/Dextrose/ Fat Emulsion Intravenous 1,200 ml @ 50 mls/hr TPN CONT IV ; Start 07/10/19 at 22:00; Stop 07/10/19 at 14:17; Status DC Sodium Chloride 90 meq/Potassium Chloride 15 meq/ Potassium Phosphate 10 mmol/ Magnesium Sulfate 10 meq/Calcium Gluconate 20 meq/ Multivitamins 10 ml/Chromium/ Copper/Manganese/ Seleni/Zn 0.5 ml/ Total Parenteral Nutrition/Amino Acids/Dextrose/ Fat Emulsion Intravenous 1,200 ml @ 50 mls/hr TPN CONT IV Last administered on 07/10/19at 23:29; Start 07/10/19 at 22:00; Stop 07/11/19 at 21:59; Status DC Sodium Chloride 1,000 ml @ 1,000 mls/hr Q1H PRN IV hypotension; Start 07/11/19 at 07:28; Stop 07/11/19 at 13:27; Status DC Albumin Human 200 ml @ 200 mls/hr 1X ONCE IV Last administered on 07/11/19at 08:51; Start 07/11/19 at 07:30; Stop 07/11/19 at 08:29; Status DC Diphenhydramine HCl (Benadryl) 25 mg 1X PRN PRN IV ITCHING; Start 07/11/19 at 07:30; Stop 07/12/19 at 07:29; Status DC Diphenhydramine HCl (Benadryl) 25 mg 1X PRN PRN IV ITCHING; Start 07/11/19 at 07:30; Stop 07/12/19 at 07:29; Status DC Sodium Chloride 1,000 ml @ 400 mls/hr Q2H30M PRN IV PATENCY; Start 07/11/19 at 07:28; Stop 07/11/19 at 19:27; Status DC Info (PHARMACY MONITORING -- do not chart) 1 each PRN DAILY PRN MC SEE COMMENTS; Start 07/11/19 at 07:30; Stop 07/22/19 at 13:01; Status DC Metronidazole 100 ml @ 100 mls/hr Q6HRS IV Last administered on 07/27/19at 06:26; Start 07/11/19 at 08:30; Stop 07/27/19 at 09:58; Status DC Micafungin Sodium 100 mg/Dextrose 100 ml @ 100 mls/hr Q24H IV Last administered on 08/18/19at 08:18; Start 07/11/19 at 09:00; Stop 08/18/19 at 20:58; Status DC Propofol 0 ml @ As Directed STK-MED ONCE IV ; Start 07/11/19 at 07:53; Stop 07/11/19 at 07:53; Status DC Etomidate (Amidate) 20 mg STK-MED ONCE IV ; Start 07/11/19 at 07:53; Stop 07/11/19 at 07:54; Status DC Midazolam HCl (Versed) 5 mg STK-MED ONCE .ROUTE ; Start 07/11/19 at 07:57; Stop 07/11/19 at 07:57; Status DC Fentanyl Citrate 30 ml @ 0 mls/hr CONT PRN IV SEE PROTOCOL Last administered on 08/05/19at 06:12; Start 07/11/19 at 08:15; Stop 08/05/19 at 09:19; Status DC Artificial Tears (Artificial Tears) 1 drop PRN Q1HR PRN OU DRY EYE, 1st choice; Start 07/11/19 at 08:15; Stop 08/17/19 at 05:31; Status DC Midazolam HCl 50 mg/Sodium Chloride 50 ml @ 0 mls/hr CONT PRN IV SEE PROTOCOL Last administered on 07/14/19at 22:39; Start 07/11/19 at 08:15; Stop 07/16/19 at 15:59; Status DC Etomidate (Amidate) 8 mg 1X ONCE IV Last administered on 07/11/19at 08:33; Start 07/11/19 at 08:30; Stop 07/11/19 at 08:31; Status DC Succinylcholine Chloride (Anectine) 120 mg 1X ONCE IV Last administered on 07/11/19at 08:34; Start 07/11/19 at 08:30; Stop 07/11/19 at 08:31; Status DC Midazolam HCl (Versed) 5 mg 1X ONCE IV ; Start 07/11/19 at 08:30; Stop 07/11/19 at 08:31; Status DC Potassium Chloride 15 meq/ Bicarbonate Dialysis Soln w/ out KCl 5,007.5 ml @ 1,000 mls/ hr Q5H1M IV Last administered on 07/12/19at 11:11; Start 07/11/19 at 12:00; Stop 07/12/19 at 11:15; Status DC Potassium Chloride 15 meq/ Bicarbonate Dialysis Soln w/ out KCl 5,007.5 ml @ 1,000 mls/ hr Q5H1M IV Last administered on 07/12/19at 11:12; Start 07/11/19 at 12:00; Stop 07/12/19 at 11:17; Status DC Potassium Chloride 15 meq/ Bicarbonate Dialysis Soln w/ out KCl 5,007.5 ml @ 1,000 mls/ hr Q5H1M IV Last administered on 07/12/19at 11:11; Start 07/11/19 at 12:00; Stop 07/12/19 at 11:19; Status DC Sodium Chloride 90 meq/Potassium Chloride 15 meq/ Potassium Phosphate 10 mmol/ Magnesium Sulfate 10 meq/Calcium Gluconate 20 meq/ Multivitamins 10 ml/Chromium/ Copper/Manganese/ Seleni/Zn 0.5 ml/ Total Parenteral Nutrition/Amino Acids/Dextrose/ Fat Emulsion Intravenous 1,400 ml @ 58.333 mls/ hr TPN CONT IV Last administered on 07/11/19at 21:42; Start 07/11/19 at 22:00; Stop 07/12/19 at 21:59; Status DC Heparin Sodium (Porcine) (Heparin Sodium) 5,000 unit Q8HRS SQ Last administered on 07/16/19at 05:55; Start 07/11/19 at 15:00; Stop 07/16/19 at 13:28; Status DC Meropenem 500 mg/ Sodium Chloride 50 ml @ 100 mls/hr Q6HRS IV Last administered on 07/13/19at 06:00; Start 07/12/19 at 09:00; Stop 07/13/19 at 07:29; Status DC Potassium Phosphate 20 mmol/ Sodium Chloride 106.6667 ml @ 51.667 m... 1X ONCE IV Last administered on 07/12/19at 11:22; Start 07/12/19 at 10:15; Stop 07/12/19 at 12:18; Status DC Acetaminophen (Tylenol Supp) 650 mg PRN Q6HRS PRN ND MILD PAIN / TEMP > 100.3'F Last administered on 11/02/19at 08:14; Start 07/12/19 at 10:30 Potassium Chloride/Water 100 ml @ 100 mls/hr Q1H IV Last administered on 07/12/19at 12:12; Start 07/12/19 at 11:00; Stop 07/12/19 at 12:59; Status DC Potassium Chloride 20 meq/ Bicarbonate Dialysis Soln w/ out KCl 5,010 ml @ 1,000 mls/hr Q5H1M IV Last administered on 07/13/19at 08:48; Start 07/12/19 at 12:00; Stop 07/13/19 at 13:03; Status DC Potassium Chloride 20 meq/ Bicarbonate Dialysis Soln w/ out KCl 5,010 ml @ 1,000 mls/hr Q5H1M IV Last administered on 07/17/19at 14:52; Start 07/12/19 at 11:30; Stop 07/17/19 at 19:59; Status DC Potassium Chloride 20 meq/ Bicarbonate Dialysis Soln w/ out KCl 5,010 ml @ 1,000 mls/hr Q5H1M IV Last administered on 07/17/19at 14:53; Start 07/12/19 at 11:30; Stop 07/17/19 at 19:59; Status DC Sodium Chloride 90 meq/Potassium Chloride 15 meq/ Potassium Phosphate 15 mmol/ Magnesium Sulfate 10 meq/Calcium Gluconate 15 meq/ Multivitamins 10 ml/Chromium/ Copper/Manganese/ Seleni/Zn 0.5 ml/ Total Parenteral Nutrition/Amino Acids/Dextrose/ Fat Emulsion Intravenous 1,400 ml @ 58.333 mls/ hr TPN CONT IV Last administered on 07/12/19 22:17; Start 07/12/19 at 22:00; Stop 07/13/19 at 21:59; Status DC Cefepime HCl (Maxipime) 2 gm Q12HR IVP Last administered on 07/26/19at 20:56; Start 07/13/19 at 09:00; Stop 07/27/19 at 09:58; Status DC Daptomycin 500 mg/ Sodium Chloride 50 ml @ 100 mls/hr Q48H IV Last administered on 07/29/19at 09:57; Start 07/13/19 at 08:30; Stop 07/29/19 at 10:07; Status DC Lidocaine HCl (Buffered Lidocaine 1%) 3 ml 1X ONCE INJ Last administered on 07/13/19at 10:27; Start 07/13/19 at 10:30; Stop 07/13/19 at 10:31; Status DC Potassium Phosphate 20 mmol/ Sodium Chloride 106.6667 ml @ 51.667 m... 1X ONCE IV Last administered on 07/13/19at 12:51; Start 07/13/19 at 13:00; Stop 07/13/19 at 15:03; Status DC Sodium Chloride 90 meq/Potassium Chloride 15 meq/ Potassium Phosphate 18 mmol/ Magnesium Sulfate 8 meq/Calcium Gluconate 15 meq/ Multivitamins 10 ml/Chromium/ Copper/Manganese/ Seleni/Zn 0.5 ml/ Total Parenteral Nutrition/Amino Acids/Dextrose/ Fat Emulsion Intravenous 1,400 ml @ 58.333 mls/ hr TPN CONT IV Last administered on 07/13/19at 22:16; Start 07/13/19 at 22:00; Stop 07/14/19 at 21:59; Status DC Potassium Chloride 20 meq/ Bicarbonate Dialysis Soln w/ out KCl 5,010 ml @ 1,000 mls/hr Q5H1M IV Last administered on 07/17/19at 14:54; Start 07/13/19 at 16:00; Stop 07/17/19 at 19:59; Status DC Multi-Ingred Cream/Lotion/Oil/ Oint (Artificial Tears Eye Ointment) 1 ramu PRN Q1HR PRN OU DRY EYE, 2nd choice Last administered on 08/01/19at 08:19; Start 07/13/19 at 17:30; Stop 09/21/19 at 14:39; Status DC Sodium Chloride 90 meq/Potassium Chloride 15 meq/ Potassium Phosphate 18 mmol/ Magnesium Sulfate 8 meq/Calcium Gluconate 15 meq/ Multivitamins 10 ml/Chromium/ Copper/Manganese/ Seleni/Zn 0.5 ml/ Total Parenteral Nutrition/Amino Acids/Dextrose/ Fat Emulsion Intravenous 1,400 ml @ 58.333 mls/ hr TPN CONT IV Last administered on 07/14/19at 22:00; Start 07/14/19 at 22:00; Stop 07/15/19 at 21:59; Status DC Albumin Human 500 ml @ 125 mls/hr 1X ONCE IV ; Start 07/14/19 at 14:15; Stop 07/14/19 at 18:14; Status DC Sodium Chloride 90 meq/Potassium Chloride 15 meq/ Potassium Phosphate 18 mmol/ Magnesium Sulfate 8 meq/Calcium Gluconate 15 meq/ Multivitamins 10 ml/Chromium/ Copper/Manganese/ Seleni/Zn 0.5 ml/ Insulin Human Regular 10 unit/ Total Parenteral Nutrition/Amino Acids/Dextrose/ Fat Emulsion Intravenous 1,400 ml @ 58.333 mls/ hr TPN CONT IV Last administered on 07/15/19at 21:43; Start at 22:00; Stop 07/16/19 at 21:59; Status DC Lidocaine HCl (Buffered Lidocaine 1%) 3 ml STK-MED ONCE .ROUTE ; Start 07/13/19 at 10:00; Stop 07/15/19 at 13:57; Status DC Midazolam HCl 100 mg/Sodium Chloride 100 ml @ 7 mls/hr CONT PRN IV SEE PROTOCOL Last administered on 07/27/19at 15:35; Start 07/16/19 at 16:00; Stop 09/21/19 at 14:38; Status DC Sodium Chloride 90 meq/Potassium Chloride 15 meq/ Potassium Phosphate 18 mmol/ Magnesium Sulfate 8 meq/Calcium Gluconate 15 meq/ Multivitamins 10 ml/Chromium/ Copper/Manganese/ Seleni/Zn 0.5 ml/ Insulin Human Regular 15 unit/ Total Parenteral Nutrition/Amino Acids/Dextrose/ Fat Emulsion Intravenous 1,400 ml @ 58.333 mls/ hr TPN CONT IV Last administered on 07/16/19at 20:34; Start 07/16/19 at 22:00; Stop 07/17/19 at 21:59; Status DC Info (Icu Electrolyte Protocol) 1 ea CONT PRN PRN MC PER PROTOCOL; Start 07/17/19 at 13:15 Sodium Chloride 90 meq/Potassium Chloride 15 meq/ Potassium Phosphate 18 mmol/ Magnesium Sulfate 8 meq/Calcium Gluconate 15 meq/ Multivitamins 10 ml/Chromium/ Copper/Manganese/ Seleni/Zn 0.5 ml/ Insulin Human Regular 15 unit/ Total Parenteral Nutrition/Amino Acids/Dextrose/ Fat Emulsion Intravenous 1,400 ml @ 58.333 mls/ hr TPN CONT IV Last administered on 07/17/19at 22:05; Start 07/17/19 at 22:00; Stop 07/18/19 at 21:59; Status DC Potassium Chloride 15 meq/ Bicarbonate Dialysis Soln w/ out KCl 5,007.5 ml @ 1,000 mls/ hr Q5H1M IV Last administered on 07/20/19at 18:14; Start 07/17/19 at 20:00; Stop 07/21/19 at 13:08; Status DC Potassium Chloride 15 meq/ Bicarbonate Dialysis Soln w/ out KCl 5,007.5 ml @ 1,000 mls/ hr Q5H1M IV Last administered on 07/20/19at 18:14; Start 07/17/19 at 20:00; Stop 07/21/19 at 13:08; Status DC Potassium Chloride 15 meq/ Bicarbonate Dialysis Soln w/ out KCl 5,007.5 ml @ 1,000 mls/ hr Q5H1M IV Last administered on 07/20/19at 18:14; Start 07/17/19 at 20:00; Stop 07/21/19 at 13:08; Status DC Iohexol (Omnipaque 240 Mg/ml) 30 ml 1X ONCE PO Last administered on 07/18/19at 11:30; Start 07/18/19 at 11:30; Stop 07/18/19 at 11:33; Status DC Info (CONTRAST GIVEN -- Rx MONITORING) 1 each PRN DAILY PRN MC SEE COMMENTS; Start 07/18/19 at 11:45; Stop 07/20/19 at 11:44; Status DC Sodium Chloride 90 meq/Potassium Chloride 15 meq/ Potassium Phosphate 18 mmol/ Magnesium Sulfate 8 meq/Calcium Gluconate 15 meq/ Multivitamins 10 ml/Chromium/ Copper/Manganese/ Seleni/Zn 0.5 ml/ Insulin Human Regular 15 unit/ Total Pa renteral Nutrition/Amino Acids/Dextrose/ Fat Emulsion Intravenous 1,400 ml @ 58.333 mls/ hr TPN CONT IV Last administered on 07/18/19at 21:47; Start 07/18/19 at 22:00; Stop 07/19/19 at 21:59; Status DC Sodium Chloride 90 meq/Potassium Chloride 15 meq/ Potassium Phosphate 18 mmol/ Magnesium Sulfate 8 meq/Calcium Gluconate 15 meq/ Multivitamins 10 ml/Chromium/ Copper/Manganese/ Seleni/Zn 0.5 ml/ Insulin Human Regular 20 unit/ Total Parenteral Nutrition/Amino Acids/Dextrose/ Fat Emulsion Intravenous 1,400 ml @ 58.333 mls/ hr TPN CONT IV Last administered on 07/19/19at 21:36; Start 07/19/19 at 22:00; Stop 07/20/19 at 21:59; Status DC Alteplase, Recombinant (Cathflo For Central Catheter Clearance) 1 mg 1X ONCE INT CAT Last administered on 07/19/19at 20:03; Start 07/19/19 at 19:30; Stop 07/19/19 at 19:46; Status DC Alteplase, Recombinant (Cathflo For Central Catheter Clearance) 1 mg 1X ONCE INT CAT Last administered on 07/19/19at 22:05; Start 07/19/19 at 22:00; Stop 07/19/19 at 22:01; Status DC Sodium Chloride 90 meq/Potassium Chloride 15 meq/ Potassium Phosphate 18 mmol/ Magnesium Sulfate 8 meq/Calcium Gluconate 15 meq/ Multivitamins 10 ml/Chromium/ Copper/Manganese/ Seleni/Zn 0.5 ml/ Insulin Human Regular 20 unit/ Total Parenteral Nutrition/Amino Acids/Dextrose/ Fat Emulsion Intravenous 1,400 ml @ 58.333 mls/ hr TPN CONT IV Last administered on 07/20/19at 21:30; Start 07/20/19 at 22:00; Stop 07/21/19 at 21:59; Status DC Dexmedetomidine HCl 400 mcg/ Sodium Chloride 100 ml @ 0 mls/hr CONT PRN IV ANXIETY / AGITATION Last administered on 09/17/19at 12:57; Start 07/21/19 at 08:15; Stop 09/17/19 at 18:31; Status DC Sodium Chloride 500 ml @ 500 mls/hr 1X PRN PRN IV ELEVATED BP, SEE COMMENTS; Start 07/21/19 at 08:15 Atropine Sulfate (ATROPINE 0.5mg SYRINGE) 0.5 mg PRN Q5MIN PRN IV SEE COMMENTS; Start 07/21/19 at 08:15 Furosemide (Lasix) 20 mg 1X ONCE IVP Last administered on 07/21/19at 08:19; Start 07/21/19 at 08:15; Stop 07/21/19 at 08:16; Status DC Lidocaine HCl (Buffered Lidocaine 1%) 3 ml STK-MED ONCE .ROUTE ; Start 07/21/19 at 08:39; Stop 07/21/19 at 08:39; Status DC Lidocaine HCl (Buffered Lidocaine 1%) 6 ml 1X ONCE INJ Last administered on 07/21/19at 09:05; Start 07/21/19 at 09:00; Stop 07/21/19 at 09:06; Status DC Sodium Chloride 90 meq/Potassium Chloride 15 meq/ Potassium Phosphate 18 mmol/ Magnesium Sulfate 8 meq/Calcium Gluconate 15 meq/ Multivitamins 10 ml/Chromium/ Copper/Manganese/ Seleni/Zn 0.5 ml/ Insulin Human Regular 20 unit/ Total Parenteral Nutrition/Amino Acids/Dextrose/ Fat Emulsion Intravenous 1,400 ml @ 58.333 mls/ hr TPN CONT IV Last administered on 07/21/19at 22:45; Start 07/21/19 at 22:00; Stop 07/22/19 at 21:59; Status DC Sodium Chloride 1,000 ml @ 1,000 mls/hr Q1H PRN IV hypotension; Start 07/22/19 at 07:30; Stop 07/22/19 at 13:29; Status DC Albumin Human 200 ml @ 200 mls/hr 1X PRN PRN IV Hypotension Last administered on 07/22/19at 09:36; Start 07/22/19 at 07:30; Stop 07/22/19 at 13:29; Status DC Sodium Chloride (Normal Saline Flush) 10 ml 1X PRN PRN IV AP catheter pack; Start 07/22/19 at 07:30; Stop 07/22/19 at 21:29; Status DC Sodium Chloride (Normal Saline Flush) 10 ml 1X PRN PRN IV NURSING PROGRAM COORDINATOR catheter pack; Start 07/22/19 at 07:30; Stop 07/23/19 at 07:29; Status DC Sodium Chloride 1,000 ml @ 400 mls/hr Q2H30M PRN IV PATENCY; Start 07/22/19 at 07:30; Stop 07/22/19 at 19:29; Status DC Info (PHARMACY MONITORING -- do not chart) 1 each PRN DAILY PRN MC SEE COMMENTS; Start 07/22/19 at 07:30; Stop 07/22/19 at 13:02; Status DC Info (PHARMACY MONITORING -- do not chart) 1 each PRN DAILY PRN MC SEE COMMENTS; Start 07/22/19 at 07:30; Stop 07/24/19 at 12:45; Status DC Sodium Chloride 90 meq/Potassium Chloride 15 meq/ Potassium Phosphate 10 mmol/ Magnesium Sulfate 8 meq/Calcium Gluconate 15 meq/ Multivitamins 10 ml/Chromium/ Copper/Manganese/ Seleni/Zn 0.5 ml/ Insulin Human Regular 25 unit/ Total Parenteral Nutrition/Amino Acids/Dextrose/ Fat Emulsion Intravenous 1,400 ml @ 58.333 mls/ hr TPN CONT IV Last administered on 07/22/19at 22:19; Start 07/22/19 at 22:00; Stop 07/23/19 at 21:59; Status DC Heparin Sodium (Porcine) (Heparin Sodium) 5,000 unit Q12HR SQ Last administered on 08/14/19at 08:59; Start 07/22/19 at 21:00; Stop 08/14/19 at 10:05; Status DC Ondansetron HCl (Zofran) 4 mg PRN Q6HRS PRN IV NAUSEA/VOMITING; Start 07/25/19 at 07:00; Stop 07/26/19 at 06:59; Status DC Fentanyl Citrate (Fentanyl 2ml Vial) 25 mcg PRN Q5MIN PRN IV MILD PAIN 1-3; Start 07/25/19 at 07:00; Stop 07/26/19 at 06:59; Status DC Fentanyl Citrate (Fentanyl 2ml Vial) 50 mcg PRN Q5MIN PRN IV MODERATE TO SEVERE PAIN; Start 07/25/19 at 07:00; Stop 07/26/19 at 06:59; Status DC Ringer's Solution 1,000 ml @ 30 mls/hr Q24H IV ; Start 07/25/19 at 07:00; Stop 07/25/19 at 18:59; Status DC Lidocaine HCl (Xylocaine-Mpf 1% 2ml Vial) 2 ml PRN 1X PRN ID PRIOR TO IV START; Start 07/25/19 at 07:00; Stop 07/26/19 at 06:59; Status DC Prochlorperazine Edisylate (Compazine) 5 mg PACU PRN PRN IV NAUSEA, MRX1; Start 07/25/19 at 07:00; Stop 07/26/19 at 06:59; Status DC Sodium Chloride 1,000 ml @ 1,000 mls/hr Q1H PRN IV hypotension; Start 07/23/19 at 09:10; Stop 07/23/19 at 15:09; Status DC Albumin Human 200 ml @ 200 mls/hr 1X PRN PRN IV Hypotension Last administered on 07/23/19at 10:10; Start 07/23/19 at 09:15; Stop 07/23/19 at 15:14; Status DC Sodium Chloride 1,000 ml @ 400 mls/hr Q2H30M PRN IV PATENCY; Start 07/23/19 at 09:10; Stop 07/23/19 at 21:09; Status DC Info (PHARMACY MONITORING -- do not chart) 1 each PRN DAILY PRN MC SEE COMMENTS; Start 07/23/19 at 09:15; Stop 07/24/19 at 12:45; Status DC Info (PHARMACY MONITORING -- do not chart) 1 each PRN DAILY PRN MC SEE COMMENTS; Start 07/23/19 at 09:15; Stop 07/24/19 at 12:45; Status DC Sodium Chloride 90 meq/Potassium Chloride 15 meq/ Potassium Phosphate 10 mmol/ Magnesium Sulfate 8 meq/Calcium Gluconate 15 meq/ Multivitamins 10 ml/Chromium/ Copper/Manganese/ Seleni/Zn 0.5 ml/ Insulin Human Regular 25 unit/ Total Parenteral Nutrition/Amino Acids/Dextrose/ Fat Emulsion Intravenous 1,400 ml @ 58.333 mls/ hr TPN CONT IV Last administered on 07/23/19at 22:10; Start 07/23/19 at 22:00; Stop 07/24/19 at 21:59; Status DC Magnesium Sulfate 50 ml @ 25 mls/hr PRN DAILY PRN IV for Mag < 1.7 on am labs Last administered on 10/06/19at 10:57; Start 07/24/19 at 09:15 Sodium Chloride 90 meq/Potassium Chloride 15 meq/ Potassium Phosphate 10 mmol/ Magnesium Sulfate 8 meq/Calcium Gluconate 15 meq/ Multivitamins 10 ml/Chromium/ Copper/Manganese/ Seleni/Zn 0.5 ml/ Insulin Human Regular 25 unit/ Total Parenteral Nutrition/Amino Acids/Dextrose/ Fat Emulsion Intravenous 1,400 ml @ 58.333 mls/ hr TPN CONT IV Last administered on 07/24/19at 21:20; Start 07/24/19 at 22:00; Stop 07/25/19 at 21:59; Status DC Sodium Chloride 1,000 ml @ 1,000 mls/hr Q1H PRN IV hypotension; Start 07/24/19 at 12:23; Stop 07/24/19 at 18:22; Status DC Albumin Human 200 ml @ 200 mls/hr 1X ONCE IV Last administered on 07/24/19at 13:34; Start 07/24/19 at 12:30; Stop 07/24/19 at 13:29; Status DC Diphenhydramine HCl (Benadryl) 25 mg 1X PRN PRN IV ITCHING; Start 07/24/19 at 12:30; Stop 07/25/19 at 12:29; Status DC Diphenhydramine HCl (Benadryl) 25 mg 1X PRN PRN IV ITCHING; Start 07/24/19 at 12:30; Stop 07/25/19 at 12:29; Status DC Info (PHARMACY MONITORING -- do not chart) 1 each PRN DAILY PRN MC SEE PIPE TS; Start 07/24/19 at 12:30; Status Cancel Bupivacaine HCl/ Epinephrine Bitart (Sensorcain-Epi 0.5%-1:[id number] Mpf) 30 ml STK-MED ONCE .ROUTE Last administered on 07/25/19at 11:44; Start 07/25/19 at 11:00; Stop 07/25/19 at 11:01; Status DC Cellulose (Surgicel Fibrillar 1x2) 1 each STK-MED ONCE .ROUTE ; Start 07/25/19 at 11:00; Stop 07/25/19 at 11:01; Status DC Sodium Chloride 90 meq/Potassium Chloride 15 meq/ Potassium Phosphate 10 mmol/ Magnesium Sulfate 12 meq/Calcium Gluconate 15 meq/ Multivitamins 10 ml/Chromium/ Copper/Manganese/ Seleni/Zn 0.5 ml/ Insulin Human Regular 25 unit/ Total Parenteral Nutrition/Amino Acids/Dextrose/ Fat Emulsion Intravenous 1,400 ml @ 58.333 mls/ hr TPN CONT IV Last administered on 07/25/19at 22:24; Start 07/25/19 at 22:00; Stop 07/26/19 at 21:59; Status DC Propofol 20 ml @ As Directed STK-MED ONCE IV ; Start 07/25/19 at 11:07; Stop 07/25/19 at 11:07; Status DC Cellulose (Surgicel Hemostat 4x8) 1 each STK-MED ONCE .ROUTE Last administered on 07/25/19at 11:44; Start 07/25/19 at 11:55; Stop 07/25/19 at 11:56; Status DC Sevoflurane (Ultane) 60 ml STK-MED ONCE IH ; Start 07/25/19 at 12:46; Stop 07/25/19 at 12:46; Status DC Sodium Chloride 1,000 ml @ 1,000 mls/hr Q1H PRN IV hypotension; Start 07/25/19 at 13:51; Stop 07/25/19 at 19:50; Status DC Albumin Human 200 ml @ 200 mls/hr 1X PRN PRN IV Hypotension Last administered on 07/25/19at 14:51; Start 07/25/19 at 14:00; Stop 07/25/19 at 19:59; Status DC Diphenhydramine HCl (Benadryl) 25 mg 1X PRN PRN IV ITCHING; Start 07/25/19 at 14:00; Stop 07/26/19 at 13:59; Status DC Diphenhydramine HCl (Benadryl) 25 mg 1X PRN PRN IV ITCHING; Start 07/25/19 at 14:00; Stop 07/26/19 at 13:59; Status DC Sodium Chloride 1,000 ml @ 400 mls/hr Q2H30M PRN IV PATENCY; Start 07/25/19 at 13:51; Stop 07/26/19 at 01:50; Status DC Info (PHARMACY MONITORING -- do not chart) 1 each PRN DAILY PRN MC SEE COMMENTS; Start 07/25/19 at 14:00; Stop 07/28/19 at 08:16; Status DC Heparin Sodium (Porcine) (Hep Lock Adult) 500 unit STK-MED ONCE IVP ; Start 07/26/19 at 09:29; Stop 07/26/19 at 09:30; Status DC Sodium Chloride 1,000 ml @ 1,000 mls/hr Q1H PRN IV hypotension; Start 07/26/19 at 10:43; Stop 07/26/19 at 16:42; Status DC Sodium Chloride 1,000 ml @ 400 mls/hr Q2H30M PRN IV PATENCY; Start 07/26/19 at 10:43; Stop 07/26/19 at 22:42; Status DC Info (PHARMACY MONITORING -- do not chart) 1 each PRN DAILY PRN MC SEE COMMENTS; Start 07/26/19 at 10:45; Status UNV Info (PHARMACY MONITORING -- do not chart) 1 each PRN DAILY PRN MC SEE COMMENTS; Start 07/26/19 at 10:45; Status UNV Sodium Chloride 90 meq/Potassium Chloride 15 meq/ Magnesium Sulfate 12 meq/Calcium Gluconate 15 meq/ Multivitamins 10 ml/Chromium/ Copper/Manganese/ Seleni/Zn 0.5 ml/ Insulin Human Regular 25 unit/ Total Parenteral Nutrition/Amino Acids/Dextrose/ Fat Emulsion Intravenous 1,400 ml @ 58.333 mls/ hr TPN CONT IV Last administered on 07/26/19at 22:13; Start 07/26/19 at 22:00; Stop 07/27/19 at 21:59; Status DC Sodium Chloride 1,000 ml @ 1,000 mls/hr Q1H PRN IV hypotension; Start 07/27/19 at 07:50; Stop 07/27/19 at 13:49; Status DC Albumin Human 200 ml @ 200 mls/hr 1X ONCE IV ; Start 07/27/19 at 08:00; Stop 07/27/19 at 08:53; Status DC Diphenhydramine HCl (Benadryl) 25 mg 1X PRN PRN IV ITCHING; Start 07/27/19 at 08:00; Stop 07/28/19 at 07:59; Status DC Diphenhydramine HCl (Benadryl) 25 mg 1X PRN PRN IV ITCHING; Start 07/27/19 at 08:00; Stop 07/28/19 at 07:59; Status DC Info (PHARMACY MONITORING -- do not chart) 1 each PRN DAILY PRN MC SEE COMMENTS; Start 07/27/19 at 08:00; Stop 07/28/19 at 08:16; Status DC Albumin Human 50 ml @ 50 mls/hr 1X ONCE IV ; Start 07/27/19 at 08:53; Stop 07/27/19 at 08:56; Status DC Albumin Human 200 ml @ 50 mls/hr PRN 1X PRN IV HYPOTENSION Last administered on 08/02/19at 11:54; Start 07/27/19 at 09:00; Stop 09/08/19 at 11:14; Status DC Meropenem 500 mg/ Sodium Chloride 50 ml @ 100 mls/hr Q12H IV Last administered on 08/16/19at 10:45; Start 07/27/19 at 10:00; Stop 08/16/19 at 12:37; Status DC Sodium Chloride 90 meq/Magnesium Sulfate 12 meq/ Calcium Gluconate 15 meq/ Multivitamins 10 ml/Chromium/ Copper/Manganese/ Seleni/Zn 0.5 ml/ Insulin Human Regular 25 unit/ Total Parenteral Nutrition/Amino Acids/Dextrose/ Fat Emulsion Intravenous 1,400 ml @ 58.333 mls/ hr TPN CONT IV Last administered on 07/27/19at 21:41; Start 07/27/19 at 22:00; Stop 07/28/19 at 21:59; Status DC Sodium Chloride 1,000 ml @ 1,000 mls/hr Q1H PRN IV hypotension; Start 07/28/19 at 07:58; Stop 07/28/19 at 13:57; Status DC Albumin Human 200 ml @ 200 mls/hr 1X PRN PRN IV Hypotension Last administered on 07/28/19at 09:30; Start 07/28/19 at 08:00; Stop 07/28/19 at 13:59; Status DC Sodium Chloride 1,000 ml @ 400 mls/hr Q2H30M PRN IV PATENCY; Start 07/28/19 at 07:58; Stop 07/28/19 at 19:57; Status DC Info (PHARMACY MONITORING -- do not chart) 1 each PRN DAILY PRN MC SEE COMMENTS; Start 07/28/19 at 08:00; Status Cancel Info (PHARMACY MONITORING -- do not chart) 1 each PRN DAILY PRN MC SEE COMMENTS; Start 07/28/19 at 08:15; Status UNV Sodium Chloride 90 meq/Potassium Phosphate 5 mmol/ Magnesium Sulfate 12 meq/Calcium Gluconate 15 meq/ Multivitamins 10 ml/Chromium/ Copper/Manganese/ Seleni/Zn 0.5 ml/ Insulin Human Regular 30 unit/ Total Parenteral Nutrition/Amino Acids/Dextrose/ Fat Emulsion Intravenous 1,400 ml @ 58.333 mls/ hr TPN CONT IV Last administered on 07/28/19at 22:08; Start 07/28/19 at 22:00; Stop 07/29/19 at 21:59; Status DC Linezolid/Dextrose 300 ml @ 300 mls/hr Q12HR IV Last administered on 08/08/19at 20:40; Start 07/29/19 at 11:00; Stop 08/09/19 at 08:10; Status DC Sodium Chloride 90 meq/Potassium Phosphate 15 mmol/ Magnesium Sulfate 12 meq/Calcium Gluconate 15 meq/ Multivitamins 10 ml/Chromium/ Copper/Manganese/ Seleni/Zn 0.5 ml/ Insulin Human Regular 30 unit/ Total Parenteral Nutrition/Amino Acids/Dextrose/ Fat Emulsion Intravenous 1,400 ml @ 58.333 mls/ hr TPN CONT IV Last administered on 07/29/19at 21:49; Start 07/29/19 at 22:00; Stop 07/30/19 at 21:59; Status DC Sodium Chloride 90 meq/Potassium Phosphate 15 mmol/ Magnesium Sulfate 12 meq/Calcium Gluconate 15 meq/ Multivitamins 10 ml/Chromium/ Copper/Manganese/ Seleni/Zn 0.5 ml/ Insulin Human Regular 40 unit/ Total Parenteral Nutrition/Amino Acids/Dextrose/ Fat Emulsion Intravenous 1,400 ml @ 58.333 mls/ hr TPN CONT IV Last administered on 07/30/19at 21:21; Start 07/30/19 at 22:00; Stop 07/31/19 at 21:59; Status DC Sodium Chloride 1,000 ml @ 1,000 mls/hr Q1H PRN IV hypotension; Start 07/30/19 at 13:26; Stop 07/30/19 at 19:25; Status DC Albumin Human 200 ml @ 200 mls/hr 1X PRN PRN IV Hypotension Last administered on 07/30/19at 15:00; Start 07/30/19 at 13:30; Stop 07/30/19 at 19:29; Status DC Sodium Chloride (Normal Saline Flush) 10 ml 1X PRN PRN IV AP catheter pack; Start 07/30/19 at 13:30; Stop 07/31/19 at 13:29; Status DC Sodium Chloride (Normal Saline Flush) 10 ml 1X PRN PRN IV NURSING PROGRAM COORDINATOR catheter pack; Start 07/30/19 at 13:30; Stop 07/31/19 at 13:29; Status DC Sodium Chloride 1,000 ml @ 400 mls/hr Q2H30M PRN IV PATENCY; Start 07/30/19 at 13:26; Stop 07/31/19 at 01:25; Status DC Info (PHARMACY MONITORING -- do not chart) 1 each PRN DAILY PRN MC SEE COMMENTS; Start 07/30/19 at 13:30; Stop 07/30/19 at 13:33; Status DC Info (PHARMACY MONITORING -- do not chart) 1 each PRN DAILY PRN MC SEE COMMENTS; Start 07/30/19 at 13:30; Stop 07/30/19 at 13:34; Status DC Sodium Chloride 90 meq/Potassium Phosphate 19 mmol/ Magnesium Sulfate 12 meq/Calcium Gluconate 15 meq/ Multivitamins 10 ml/Chromium/ Copper/Manganese/ Seleni/Zn 0.5 ml/ Insulin Human Regular 40 unit/ Total Parenteral Nutrition/Amino Acids/Dextrose/ Fat Emulsion Intravenous 1,400 ml @ 58.333 mls/ hr TPN CONT IV Last administered on 07/31/19at 21:54; Start 07/31/19 at 22:00; Stop 08/01/19 at 21:59; Status DC Sodium Chloride 1,000 ml @ 1,000 mls/hr Q1H PRN IV hypotension; Start 08/01/19 at 09:35; Stop 08/01/19 at 15:34; Status DC Albumin Human 200 ml @ 200 mls/hr 1X PRN PRN IV Hypotension; Start 08/01/19 at 09:45; Stop 08/01/19 at 15:44; Status DC Diphenhydramine HCl (Benadryl) 25 mg 1X PRN PRN IV ITCHING; Start 08/01/19 at 09:45; Stop 08/02/19 at 09:44; Status DC Diphenhydramine HCl (Benadryl) 25 mg 1X PRN PRN IV ITCHING; Start 08/01/19 at 09:45; Stop 08/02/19 at 09:44; Status DC Sodium Chloride 1,000 ml @ 400 mls/hr Q2H30M PRN IV PATENCY; Start 08/01/19 at 09:35; Stop 08/01/19 at 21:34; Status DC Info (PHARMACY MONITORING -- do not chart) 1 each PRN DAILY PRN MC SEE COMMENTS; Start 08/01/19 at 09:45; Status Cancel Sodium Chloride 100 meq/Potassium Phosphate 19 mmol/ Magnesium Sulfate 12 me q/Calcium Gluconate 15 meq/ Multivitamins 10 ml/Chromium/ Copper/Manganese/ Seleni/Zn 0.5 ml/ Insulin Human Regular 40 unit/ Potassium Chloride 20 meq/ Total Parenteral Nutrition/Amino Acids/Dextrose/ Fat Emulsion Intravenous 1,400 ml @ 58.333 mls/ hr TPN CONT IV Last administered on 08/01/19at 22:02; Start 08/01/19 at 22:00; Stop 08/02/19 at 21:59; Status DC Furosemide (Lasix) 40 mg 1X ONCE IVP Last administered on 08/01/19at 14:39; Start 08/01/19 at 14:30; Stop 08/01/19 at 14:31; Status DC Metronidazole 100 ml @ 100 mls/hr Q8HRS IV Last administered on 08/09/19at 06:04; Start 08/02/19 at 10:00; Stop 08/09/19 at 08:10; Status DC Sodium Chloride 1,000 ml @ 1,000 mls/hr Q1H PRN IV hypotension; Start 08/02/19 at 08:00; Stop 08/02/19 at 13:59; Status DC Albumin Human 200 ml @ 200 mls/hr 1X PRN PRN IV Hypotension; Start 08/02/19 at 08:00; Stop 08/02/19 at 13:59; Status DC Sodium Chloride 1,000 ml @ 400 mls/hr Q2H30M PRN IV PATENCY; Start 08/02/19 at 08:00; Stop 08/02/19 at 19:59; Status DC Info (PHARMACY MONITORING -- do not chart) 1 each PRN DAILY PRN MC SEE COMMENTS; Start 08/02/19 at 11:30; Status UNV Info (PHARMACY MONITORING -- do not chart) 1 each PRN DAILY PRN MC SEE COMMENTS; Start 08/02/19 at 11:30; Stop 08/04/19 at 12:13; Status DC Sodium Chloride 100 meq/Potassium Phosphate 19 mmol/ Magnesium Sulfate 12 meq/Calcium Gluconate 15 meq/ Multivitamins 10 ml/Chromium/ Copper/Manganese/ Seleni/Zn 0.5 ml/ Insulin Human Regular 40 unit/ Potassium Chloride 20 meq/ Total Parenteral Nutrition/Amino Acids/Dextrose/ Fat Emulsion Intravenous 1,400 ml @ 58.333 mls/ hr TPN CONT IV Last administered on 08/02/19at 21:52; Start 08/02/19 at 22:00; Stop 08/03/19 at 21:59; Status DC Sodium Chloride (Normal Saline Flush) 10 ml QSHIFT PRN IV AFTER MEDS AND BLOOD DRAWS; Start 08/02/19 at 15:00; Stop 08/30/19 at 11:27; Status DC Sodium Chloride (Normal Saline Flush) 10 ml PRN Q5MIN PRN IV AFTER MEDS AND BLOOD DRAWS; Start 08/02/19 at 15:00 Sodium Chloride (Normal Saline Flush) 20 ml PRN Q5MIN PRN IV AFTER MEDS AND BLOOD DRAWS; Start 08/02/19 at 15:00 Sodium Chloride 100 meq/Potassium Phosphate 19 mmol/ Magnesium Sulfate 12 meq/Calcium Gluconate 15 meq/ Multivitamins 10 ml/Chromium/ Copper/Manganese/ Seleni/Zn 0.5 ml/ Insulin Human Regular 40 unit/ Potassium Chloride 20 meq/ Total Parenteral Nutrition/Amino Acids/Dextrose/ Fat Emulsion Intravenous 1,400 ml @ 58.333 mls/ hr TPN CONT IV Last administered on 08/03/19at 21:20; Start 08/03/19 at 22:00; Stop 08/04/19 at 21:59; Status DC Lidocaine HCl (Buffered Lidocaine 1%) 3 ml STK-MED ONCE .ROUTE ; Start 08/03/19 at 13:16; Stop 08/03/19 at 13:16; Status DC Lidocaine HCl (Buffered Lidocaine 1%) 6 ml 1X ONCE INJ Last administered on 08/03/19at 13:45; Start 08/03/19 at 13:30; Stop 08/03/19 at 13:31; Status DC Albumin Human 100 ml @ 100 mls/hr 1X ONCE IV Last administered on 08/03/19at 15:41; Start 08/03/19 at 15:00; Stop 08/03/19 at 15:59; Status DC Albumin Human 50 ml @ 50 mls/hr 1X ONCE IV Last administered on 08/03/19at 15:00; Start 08/03/19 at 15:00; Stop 08/03/19 at 15:59; Status DC Info (PHARMACY MONITORING -- do not chart) 1 each PRN DAILY PRN MC SEE COMMENTS; Start 08/04/19 at 11:30; Status Cancel Info (PHARMACY MONITORING -- do not chart) 1 each PRN DAILY PRN MC SEE COMMENTS; Start 08/04/19 at 11:30; Status UNV Sodium Chloride 100 meq/Potassium Phosphate 10 mmol/ Magnesium Sulfate 12 meq/Calcium Gluconate 15 meq/ Multivitamins 10 ml/Chromium/ Copper/Manganese/ Seleni/Zn 0.5 ml/ Insulin Human Regular 35 unit/ Potassium Chloride 20 meq/ Total Parenteral Nutrition/Amino Acids/Dextrose/ Fat Emulsion Intravenous 1,400 ml @ 58.333 mls/ hr TPN CONT IV Last administered on 08/04/19at 22:10; Start 08/04/19 at 22:00; Stop 08/05/19 at 21:59; Status DC Sodium Chloride 100 meq/Potassium Phosphate 5 mmol/ Magnesium Sulfate 12 meq/Calcium Gluconate 15 meq/ Multivitamins 10 ml/Chromium/ Copper/Manganese/ Seleni/Zn 0.5 ml/ Insulin Human Regular 35 unit/ Potassium Chloride 20 meq/ Total Parenteral Nutrition/Amino Acids/Dextrose/ Fat Emulsion Intravenous 1,400 ml @ 58.333 mls/ hr TPN CONT IV Last administered on 08/05/19at 22:59; Start 08/05/19 at 22:00; Stop 08/06/19 at 21:59; Status DC Sodium Chloride 1,000 ml @ 1,000 mls/hr Q1H PRN IV hypotension; Start 08/06/19 at 08:27; Stop 08/06/19 at 14:26; Status DC Albumin Human 200 ml @ 200 mls/hr 1X PRN PRN IV Hypotension Last administered on 08/06/19at 09:18; Start 08/06/19 at 08:30; Stop 08/06/19 at 14:29; Status DC Sodium Chloride 1,000 ml @ 400 mls/hr Q2H30M PRN IV PATENCY; Start 08/06/19 at 08:27; Stop 08/06/19 at 20:26; Status DC Info (PHARMACY MONITORING -- do not chart) 1 each PRN DAILY PRN MC SEE COMMENTS; Start 08/06/19 at 08:30; Status Cancel Info (PHARMACY MONITORING -- do not chart) 1 each PRN DAILY PRN MC SEE COMMENTS; Start 08/06/19 at 08:30; Stop 08/14/19 at 13:10; Status DC Sodium Chloride 100 meq/Potassium Chloride 40 meq/ Magnesium Sulfate 15 meq/Calcium Gluconate 15 meq/ Multivitamins 10 ml/Chromium/ Copper/Manganese/ Seleni/Zn 0.5 ml/ Insulin Human Regular 35 unit/ Total Parenteral Nutrition /Amino Acids/Dextrose/ Fat Emulsion Intravenous 1,400 ml @ 58.333 mls/ hr TPN CONT IV Last administered on 08/06/19at 22:00; Start 08/06/19 at 22:00; Stop 08/07/19 at 21:59; Status DC Potassium Chloride/Water 100 ml @ 100 mls/hr 1X ONCE IV Last administered on 08/06/19at 17:28; Start 08/06/19 at 14:45; Stop 08/06/19 at 15:44; Status DC Sodium Chloride 100 meq/Potassium Chloride 40 meq/ Magnesium Sulfate 15 meq/Calcium Gluconate 15 meq/ Multivitamins 10 ml/Chromium/ Copper/Manganese/ Seleni/Zn 0.5 ml/ Insulin Human Regular 35 unit/ Total Parenteral Nutrition/Amino Acids/Dextrose/ Fat Emulsion Intravenous 1,400 ml @ 58.333 mls/ hr TPN CONT IV Last administered on 08/07/19at 22:46; Start 08/07/19 at 22:00; Stop 08/08/19 at 21:59; Status DC Sodium Chloride 100 meq/Potassium Chloride 40 meq/ Magnesium Sulfate 20 meq/Calcium Gluconate 15 meq/ Multivitamins 10 ml/Chromium/ Copper/Manganese/ Seleni/Zn 0.5 ml/ Insulin Human Regular 35 unit/ Total Parenteral Nutrition/Amino Acids/Dextrose/ Fat Emulsion Intravenous 1,400 ml @ 58.333 mls/ hr TPN CONT IV Last administered on 08/08/19at 22:31; Start 08/08/19 at 22:00; Stop 08/09/19 at 21:59; Status DC Fentanyl Citrate (Fentanyl 2ml Vial) 50 mcg PRN Q2HR PRN IVP PAIN Last administered on 08/15/19at 13:32; Start 08/08/19 at 21:00; Stop 08/16/19 at 12:53; Status DC Fentanyl Citrate (Fentanyl 2ml Vial) 25 mcg PRN Q2HR PRN IVP PAIN; Start 08/08/19 at 21:00; Stop 08/16/19 at 12:54; Status DC Enoxaparin Sodium (Lovenox 100mg Syringe) 100 mg Q12HR SQ ; Start 08/09/19 at 21:00; Status UNV Amino Acids/ Glycerin/ Electrolytes 1,000 ml @ 75 mls/hr [id number] IV ; Start 08/08/19 at 21:15; Status UNV Sodium Chloride 1,000 ml @ 1,000 mls/hr Q1H PRN IV hypotension; Start 08/09/19 at 07:56; Stop 08/09/19 at 13:55; Status DC Albumin Human 200 ml @ 200 mls/hr 1X PRN PRN IV Hypotension Last administered on 08/09/19at 08:40; Start 08/09/19 at 08:00; Stop 08/09/19 at 13:59; Status DC Sodium Chloride 1,000 ml @ 400 mls/hr Q2H30M PRN IV PATENCY; Start 08/09/19 at 07:56; Stop 08/09/19 at 19:55; Status DC Info (PHARMACY MONITORING -- do not chart) 1 each PRN DAILY PRN MC SEE COMMENTS; Start 08/09/19 at 08:00; Status UNV Info (PHARMACY MONITORING -- do not chart) 1 each PRN DAILY PRN MC SEE COMMENTS; Start 08/09/19 at 08:00; Status UNV Daptomycin 430 mg/ Sodium Chloride 50 ml @ 100 mls/hr Q24H IV Last administered on 08/09/19at 12:35; Start 08/09/19 at 09:00; Stop 08/09/19 at 12:49; Status DC Sodium Chloride 100 meq/Potassium Chloride 40 meq/ Magnesium Sulfate 20 meq/Calcium Gluconate 15 meq/ Multivitamins 10 ml/Chromium/ Copper/Manganese/ Seleni/Zn 0.5 ml/ Insulin Human Regular 35 unit/ Total Parenteral Nutrition/Amino Acids/Dextrose/ Fat Emulsion Intravenous 1,400 ml @ 58.333 mls/ hr TPN CONT IV Last administered on 08/09/19at 21:26; Start 08/09/19 at 22:00; Stop 08/10/19 at 21:59; Status DC Daptomycin 430 mg/ Sodium Chloride 50 ml @ 100 mls/hr Q48H IV ; Start 08/11/19 at 09:00; Stop 08/10/19 at 11:55; Status DC Sodium Chloride 100 meq/Potassium Chloride 40 meq/ Magnesium Sulfate 20 meq/Calcium Gluconate 15 meq/ Multivitamins 10 ml/Chromium/ Copper/Manganese/ Seleni/Zn 0.5 ml/ Insulin Human Regular 35 unit/ Total Parenteral Nutrition/Amino Acids/Dextrose/ Fat Emulsion Intravenous 1,400 ml @ 58.333 mls/ hr TPN CONT IV Last administered on 08/10/19at 22:27; Start 08/10/19 at 22:00; Stop 08/11/19 at 21:59; Status DC Daptomycin 430 mg/ Sodium Chloride 50 ml @ 100 mls/hr Q24H IV Last administered on 08/12/19at 15:07; Start 08/10/19 at 13:00; Stop 08/13/19 at 13:15; Status DC Sodium Chloride 100 meq/Potassium Chloride 40 meq/ Magnesium Sulfate 20 meq/Calcium Gluconate 10 meq/ Multivitamins 10 ml/Chromium/ Copper/Manganese/ Seleni/Zn 0.5 ml/ Insulin Human Regular 35 unit/ Total Parenteral Nutrition/Amino Acids/Dextrose/ Fat Emulsion Intravenous 1,400 ml @ 58.333 mls/ hr TPN CONT IV Last administered on 08/12/19at 00:06; Start 08/11/19 at 22:00; Stop 08/12/19 at 21:59; Status DC Alteplase, Recombinant (Cathflo For Central Catheter Clearance) 1 mg 1X ONCE INT CAT Last administered on 08/12/19at 11:44; Start 08/12/19 at 10:45; Stop 08/12/19 at 10:46; Status DC Ondansetron HCl (Zofran) 4 mg PRN Q6HRS PRN IV NAUSEA/VOMITING; Start 08/15/19 at 07:00; Stop 08/16/19 at 06:59; Status DC Fentanyl Citrate (Fentanyl 2ml Vial) 25 mcg PRN Q5MIN PRN IV MILD PAIN 1-3; Start 08/15/19 at 07:00; Stop 08/16/19 at 06:59; Status DC Fentanyl Citrate (Fentanyl 2ml Vial) 50 mcg PRN Q5MIN PRN IV MODERATE TO SEVERE PAIN Last administered on 08/15/19at 10:17; Start 08/15/19 at 07:00; Stop 08/16/19 at 06:59; Status DC Ringer's Solution 1,000 ml @ 30 mls/hr Q24H IV ; Start 08/15/19 at 07:00; Stop 08/15/19 at 18:59; Status DC Lidocaine HCl (Xylocaine-Mpf 1% 2ml Vial) 2 ml PRN 1X PRN ID PRIOR TO IV START; Start 08/15/19 at 07:00; Stop 08/16/19 at 06:59; Status DC Prochlorperazine Edisylate (Compazine) 5 mg PACU PRN PRN IV NAUSEA, MRX1; Start 08/15/19 at 07:00; Stop 08/16/19 at 06:59; Status DC Sodium Acetate 50 meq/Potassium Acetate 55 meq/ Magnesium Sulfate 20 meq/Calcium Gluconate 10 meq/ Multivitamins 10 ml/Chromium/ Copper/Manganese/ Seleni/Zn 0.5 ml/ Insulin Human Regular 35 unit/ Total Parenteral Nutrition/Amino Acids/ Dextrose/ Fat Emulsion Intravenous 1,400 ml @ 58.333 mls/ hr TPN CONT IV ; Start 08/12/19 at 22:00; Stop 08/12/19 at 14:15; Status DC Sodium Acetate 50 meq/Potassium Acetate 55 meq/ Magnesium Sulfate 20 meq/Calcium Gluconate 10 meq/ Multivitamins 10 ml/Chromium/ Copper/Manganese/ Seleni/Zn 0.5 ml/ Insulin Human Regular 35 unit/ Total Parenteral Nutrition/Amino Acids/Dextrose/ Fat Emulsion Intravenous 1,800 ml @ 75 mls/hr TPN CONT IV Last administered on 08/12/19at 22:38; Start 08/12/19 at 22:00; Stop 08/13/19 at 21:59; Status DC Sodium Chloride 1,000 ml @ 1,000 mls/hr Q1H PRN IV hypotension; Start 08/12/19 at 15:31; Stop 08/12/19 at 21:30; Status DC Diphenhydramine HCl (Benadryl) 25 mg 1X PRN PRN IV ITCHING; Start 08/12/19 at 15:45; Stop 08/13/19 at 15:44; Status DC Diphenhydramine HCl (Benadryl) 25 mg 1X PRN PRN IV ITCHING; Start 08/12/19 at 15:45; Stop 08/13/19 at 15:44; Status DC Sodium Chloride 1,000 ml @ 400 mls/hr Q2H30M PRN IV PATENCY; Start 08/12/19 at 15:31; Stop 08/13/19 at 03:30; Status DC Info (PHARMACY MONITORING -- do not chart) 1 each PRN DAILY PRN MC SEE COMMENTS; Start 08/12/19 at 15:45; Stop 09/13/19 at 14:14; Status DC Sodium Acetate 50 meq/Potassium Acetate 55 meq/ Magnesium Sulfate 20 meq/Calcium Gluconate 10 meq/ Multivitamins 10 ml/Chromium/ Copper/Manganese/ Seleni/Zn 0.5 ml/ Insulin Human Regular 35 unit/ Total Parenteral Nutrition/Amino Acids/D extrose/ Fat Emulsion Intravenous 1,800 ml @ 75 mls/hr TPN CONT IV Last administered on 08/13/19at 22:03; Start 08/13/19 at 22:00; Stop 08/14/19 at 21:59; Status DC Daptomycin 430 mg/ Sodium Chloride 50 ml @ 100 mls/hr Q24H IV Last administered on 08/18/19at 13:00; Start 08/13/19 at 13:00; Stop 08/18/19 at 20:58; Status DC Heparin Sodium (Porcine) 1000 unit/Sodium Chloride 1,001 ml @ 1,001 mls/hr 1X ONCE IRR ; Start 08/15/19 at 06:00; Stop 08/15/19 at 06:59; Status DC Potassium Acetate 55 meq/Magnesium Sulfate 20 meq/ Calcium Gluconate 10 meq/ Multivitamins 10 ml/Chromium/ Copper/Manganese/ Seleni/Zn 0.5 ml/ Insulin Human Regular 35 unit/ Total Parenteral Nutrition/Amino Acids/Dextrose/ Fat Emulsion Intravenous 1,920 ml @ 80 mls/hr TPN CONT IV Last administered on 08/14/19at 22:10; Start 08/14/19 at 22:00; Stop 08/15/19 at 21:59; Status DC Dexamethasone Sodium Phosphate (Decadron) 4 mg STK-MED ONCE .ROUTE ; Start 08/15/19 at 10:56; Stop 08/15/19 at 10:57; Status DC Ondansetron HCl (Zofran) 4 mg STK-MED ONCE .ROUTE ; Start 08/15/19 at 10:56; Stop 08/15/19 at 10:57; Status DC Rocuronium Union (Zemuron) 50 mg STK-MED ONCE .ROUTE ; Start 08/15/19 at 10:56; Stop 08/15/19 at 10:57; Status DC Fentanyl Citrate (Fentanyl 2ml Vial) 100 mcg STK-MED ONCE .ROUTE ; Start 08/15/19 at 10:56; Stop 08/15/19 at 10:57; Status DC Bupivacaine HCl/ Epinephrine Bitart (Sensorcain-Epi 0.5%-1:775930 Mpf) 30 ml STK-MED ONCE .ROUTE Last administered on 08/15/19at 12:01; Start 08/15/19 at 10:58; Stop 08/15/19 at 10:58; Status DC Cellulose (Surgicel Hemostat 2x14) 1 each STK-MED ONCE .ROUTE ; Start 08/15/19 at 10:58; Stop 08/15/19 at 10:59; Status DC Iohexol (Omnipaque 300 Mg/ml) 50 ml STK-MED ONCE .ROUTE ; Start 08/15/19 at 10:58; Stop 08/15/19 at 10:59; Status DC Cellulose (Surgicel Hemostat 4x8) 1 each STK-MED ONCE .ROUTE ; Start 08/15/19 at 10:58; Stop 08/15/19 at 10:59; Status DC Bisacodyl (Dulcolax Supp) 10 mg STK-MED ONCE .ROUTE ; Start 08/15/19 at 10:59; Stop 08/15/19 at 10:59; Status DC Heparin Sodium (Porcine) 1000 unit/Sodium Chloride 1,001 ml @ 1,001 mls/hr 1X ONCE IRR ; Start 08/15/19 at 12:00; Stop 08/15/19 at 12:59; Status DC Propofol 20 ml @ As Directed STK-MED ONCE IV ; Start 08/15/19 at 11:05; Stop 08/15/19 at 11:05; Status DC Sevoflurane (Ultane) 90 ml STK-MED ONCE IH ; Start 08/15/19 at 11:05; Stop 08/15/19 at 11:05; Status DC Sevoflurane (Ultane) 60 ml STK-MED ONCE IH ; Start 08/15/19 at 12:26; Stop 08/15/19 at 12:27; Status DC Propofol 20 ml @ As Directed STK-MED ONCE IV ; Start 08/15/19 at 12:26; Stop 08/15/19 at 12:27; Status DC Phenylephrine HCl (PHENYLEPHRINE in 0.9% NACL PF) 1 mg STK-MED ONCE IV ; Start 08/15/19 at 12:34; Stop 08/15/19 at 12:34; Status DC Heparin Sodium (Porcine) (Heparin Sodium) 5,000 unit Q12HR SQ Last administered on 08/24/19at 20:57; Start 08/15/19 at 21:00; Stop 08/25/19 at 09:59; Status DC Sodium Chloride (Normal Saline Flush) 3 ml QSHIFT PRN IV AFTER MEDS AND BLOOD DRAWS; Start 08/15/19 at 13:45; Status Cancel Naloxone HCl (Narcan) 0.4 mg PRN Q2MIN PRN IV SEE INSTRUCTIONS Last administered on 09/24/19at 15:15; Start 08/15/19 at 13:45; Stop 10/19/19 at 16:00; Status DC Sodium Chloride 1,000 ml @ 25 mls/hr Q24H IV Last administered on 09/13/19at 13:37; Start 08/15/19 at 13:37; Stop 09/16/19 at 13:09; Status DC Naloxone HCl (Narcan) 0.4 mg PRN Q2MIN PRN IV SEE INSTRUCTIONS; Start 08/15/19 at 14:30; Status UNV Sodium Chloride 1,000 ml @ 25 mls/hr Q24H IV ; Start 08/15/19 at 14:30; Status UNV Hydromorphone HCl 30 ml @ 0 mls/hr CONT PRN PRN IV PER PROTOCOL Last admini stered on 08/20/19at 16:08; Start 08/15/19 at 14:30; Stop 08/22/19 at 08:55; Status DC Potassium Acetate 55 meq/Magnesium Sulfate 20 meq/ Calcium Gluconate 10 meq/ Multivitamins 10 ml/Chromium/ Copper/Manganese/ Seleni/Zn 0.5 ml/ Insulin Human Regular 35 unit/ Total Parenteral Nutrition/Amino Acids/Dextrose/ Fat Emulsion Intravenous 1,920 ml @ 80 mls/hr TPN CONT IV Last administered on 08/15/19at 22:01; Start 08/15/19 at 22:00; Stop 08/16/19 at 21:59; Status DC Bumetanide (Bumex) 2 mg [id number] IV Last administered on 08/19/19at 13:50; Start 08/16/19 at 14:00; Stop 08/20/19 at 14:10; Status DC Meropenem 1 gm/ Sodium Chloride 100 ml @ 200 mls/hr Q8HRS IV Last administered on 09/09/19at 05:53; Start 08/16/19 at 14:00; Stop 09/09/19 at 09:31; Status DC Potassium Acetate 55 meq/Magnesium Sulfate 20 meq/ Calcium Gluconate 10 meq/ Multivitamins 10 ml/Chromium/ Copper/Manganese/ Seleni/Zn 0.5 ml/ Insulin Human Regular 35 unit/ Total Parenteral Nutrition/Amino Acids/Dextrose/ Fat Emulsion Intravenous 1,920 ml @ 80 mls/hr TPN CONT IV Last administered on 08/16/19at 22:02; Start 08/16/19 at 22:00; Stop 08/17/19 at 21:59; Status DC Hydromorphone HCl (Dilaudid Standard EXECUTIVE RECEPTIONIST) 12 mg STK-MED ONCE IV ; Start 08/15/19 at 14:35; Stop 08/16/19 at 13:53; Status DC Artificial Tears (Artificial Tears) 1 drop PRN Q15MIN PRN OU DRY EYE Last administered on 10/11/19at 21:17; Start 08/17/19 at 05:30 Hydromorphone HCl (Dilaudid Standard EXECUTIVE RECEPTIONIST) 12 mg STK-MED ONCE IV ; Start 08/16/19 at 12:05; Stop 08/17/19 at 09:15; Status DC Potassium Acetate 65 meq/Magnesium Sulfate 20 meq/ Calcium Gluconate 10 meq/ Multivitamins 10 ml/Chromium/ Copper/Manganese/ Seleni/Zn 0.5 ml/ Insulin Human Regular 30 unit/ Total Parenteral Nutrition/Amino Acids/Dextrose/ Fat Emulsion Intravenous 1,920 ml @ 80 mls/hr TPN CONT IV Last administered on 08/17/19at 22:22; Start 08/17/19 at 22:00; Stop 08/18/19 at 21:59; Status DC Cyclobenzaprine HCl (Flexeril) 10 mg PRN Q6HRS PRN PO MUSCLE SPASMS Last administered on 10/28/19at 19:12; Start 08/18/19 at 10:45 Potassium Acetate 55 meq/Magnesium Sulfate 20 meq/ Calcium Gluconate 10 meq/ Multivitamins 10 ml/Chromium/ Copper/Manganese/ Seleni/Zn 0.5 ml/ Insulin Human Regular 30 unit/ Total Parenteral Nutrition/Amino Acids/Dextrose/ Fat Emulsion Intravenous 1,920 ml @ 80 mls/hr TPN CONT IV Last administered on 08/19/19at 01:00; Start 08/18/19 at 22:00; Stop 08/19/19 at 21:59; Status DC Magnesium Sulfate 50 ml @ 25 mls/hr 1X ONCE IV Last administered on 08/18/19at 17:18; Start 08/18/19 at 12:45; Stop 08/18/19 at 14:44; Status DC Potassium Chloride/Water 100 ml @ 100 mls/hr 1X ONCE IV Last administered on 08/19/19at 11:27; Start 08/19/19 at 12:00; Stop 08/19/19 at 12:59; Status DC Hydromorphone HCl (Dilaudid Standard EXECUTIVE RECEPTIONIST) 12 mg STK-MED ONCE IV ; Start 08/17/19 at 10:50; Stop 08/19/19 at 11:02; Status DC Hydromorphone HCl (Dilaudid Standard EXECUTIVE RECEPTIONIST) 12 mg STK-MED ONCE IV ; Start 08/18/19 at 13:47; Stop 08/19/19 at 11:03; Status DC Potassium Acetate 30 meq/Magnesium Sulfate 20 meq/ Calcium Gluconate 10 meq/ Multivitamins 10 ml/Chromium/ Copper/Manganese/ Seleni/Zn 0.5 ml/ Insulin Human Regular 30 unit/ Potassium Chloride 30 meq/ Total Parenteral Nutrition/Amino Acids/Dextrose/ Fat Emulsion Intravenous 1,920 ml @ 80 mls/hr TPN CONT IV Last administered on 08/19/19at 22:34; Start 08/19/19 at 22:00; Stop 08/20/19 at 21:59; Status DC Potassium Chloride/Water 100 ml @ 100 mls/hr Q1H IV Last administered on 08/20/19at 13:05; Start 08/20/19 at 07:00; Stop 08/20/19 at 10:59; Status DC Magnesium Sulfate 50 ml @ 25 mls/hr 1X ONCE IV Last administered on 08/20/19at 10:34; Start 08/20/19 at 10:30; Stop 08/20/19 at 12:29; Status DC Potassium Chloride 75 meq/ Magnesium Sulfate 20 meq/Calcium Gluconate 10 meq/ Multivitamins 10 ml/Chromium/ Copper/Manganese/ Seleni/Zn 0.5 ml/ Insulin Human Regular 30 unit/ Total Parenteral Nutrition/Amino Acids/Dextrose/ Fat Emulsion Intravenous 1,920 ml @ 80 mls/hr TPN CONT IV Last administered on 08/20/19at 21:51; Start 08/20/19 at 22:00; Stop 08/21/19 at 22:00; Status DC Potassium Chloride 75 meq/ Magnesium Sulfate 20 meq/Calcium Gluconate 10 meq/ Multivitamins 10 ml/Chromium/ Copper/Manganese/ Seleni/Zn 0.5 ml/ Insulin Human Regular 25 unit/ Total Parenteral Nutrition/Amino Acids/Dextrose/ Fat Emulsion Intravenous 1,920 ml @ 80 mls/hr TPN CONT IV Last administered on 08/21/19at 22:04; Start 08/21/19 at 22:00; Stop 08/22/19 at 21:59; Status DC Hydromorphone HCl (Dilaudid) 0.4 mg PRN Q4HRS PRN IVP PAIN Last administered on 08/22/19at 10:57; Start 08/22/19 at 09:00; Stop 08/22/19 at 18:59; Status DC Micafungin Sodium 100 mg/Dextrose 100 ml @ 100 mls/hr Q24H IV Last administered on 09/13/19at 12:17; Start 08/22/19 at 11:00; Stop 09/14/19 at 09:59; Status DC Daptomycin 485 mg/ Sodium Chloride 50 ml @ 100 mls/hr Q24H IV Last administered on 08/29/19at 13:10; Start 08/22/19 at 11:00; Stop 08/30/19 at 07:44; Status DC Potassium Chloride 75 meq/ Magnesium Sulfate 15 meq/Calcium Gluconate 8 meq/ Multivitamins 10 ml/Chromium/ Copper/Manganese/ Seleni/Zn 0.5 ml/ Insulin Human Regular 25 unit/ Total Parenteral Nutrition/Amino Acids/Dextrose/ Fat Emulsion Intravenous 1,920 ml @ 80 mls/hr TPN CONT IV Last administered on 08/22/19at 23:08; Start 08/22/19 at 22:00; Stop 08/23/19 at 21:59; Status DC Haloperidol Lactate (Haldol Inj) 3 mg 1X ONCE IVP Last administered on 08/22/19at 14:37; Start 08/22/19 at 14:30; Stop 08/22/19 at 14:31; Status DC Hydromorphone HCl (Dilaudid) 1 mg PRN Q4HRS PRN IVP PAIN Last administered on 09/05/19at 06:25; Start 08/22/19 at 19:00; Stop 09/05/19 at 17:10; Status DC Potassium Chloride 75 meq/ Magnesium Sulfate 15 meq/Calcium Gluconate 8 meq/ Multivitamins 10 ml/Chromium/ Copper/Manganese/ Seleni/Zn 0.5 ml/ Insulin Human Regular 20 unit/ Total Parenteral Nutrition/Amino Acids/Dextrose/ Fat Emulsion Intravenous 1,920 ml @ 80 mls/hr TPN CONT IV Last administered on 08/23/19at 22:10; Start 08/23/19 at 22:00; Stop 08/24/19 at 21:59; Status DC Lidocaine HCl (Buffered Lidocaine 1%) 3 ml STK-MED ONCE .ROUTE ; Start 08/24/19 at 11:31; Stop 08/24/19 at 11:31; Status DC Lidocaine HCl (Buffered Lidocaine 1%) 3 ml STK-MED ONCE .ROUTE ; Start 08/24/19 at 12:28; Stop 08/24/19 at 12:29; Status DC Lidocaine HCl (Buffered Lidocaine 1%) 6 ml 1X ONCE INJ Last administered on 08/24/19at 12:53; Start 08/24/19 at 12:45; Stop 08/24/19 at 12:46; Status DC Potassium Chloride 75 meq/ Magnesium Sulfate 15 meq/Calcium Gluconate 8 meq/ Multivitamins 10 ml/Chromium/ Copper/Manganese/ Seleni/Zn 0.5 ml/ Insulin Human Regular 20 unit/ Total Parenteral Nutrition/Amino Acids/Dextrose/ Fat Emulsion Intravenous 1,920 ml @ 80 mls/hr TPN CONT IV Last administered on 08/24/19at 22:00; Start 08/24/19 at 22:00; Stop 08/25/19 at 21:59; Status DC Potassium Chloride 75 meq/ Magnesium Sulfate 15 meq/Calcium Gluconate 8 meq/ Multivitamins 10 ml/Chromium/ Copper/Manganese/ Seleni/Zn 0.5 ml/ Insulin Human Regular 15 unit/ Total Parenteral Nutrition/Amino Acids/Dextrose/ Fat Emulsion Intravenous 1,920 ml @ 80 mls/hr TPN CONT IV Last administered on 08/25/19at 22:28; Start 08/25/19 at 22:00; Stop 08/26/19 at 21:59; Status DC Vecuronium Union (Norcuron Bolus) 6 mg PRN Q6HRS PRN IV VENT ASYNCHRONY; Start 08/25/19 at 19:15; Stop 08/25/19 at 19:35; Status DC Bumetanide (Bumex) 2 mg 1X ONCE IV Last administered on 08/25/19at 22:09; Start 08/25/19 at 19:45; Stop 08/25/19 at 19:46; Status DC Lidocaine HCl (Buffered Lidocaine 1%) 3 ml STK-MED ONCE .ROUTE ; Start 08/26/19 at 07:59; Stop 08/26/19 at 07:59; Status DC Midazolam HCl (Versed) 5 mg STK-MED ONCE .ROUTE ; Start 08/26/19 at 08:36; Stop 08/26/19 at 08:36; Status DC Fentanyl Citrate (Fentanyl 5ml Vial) 250 mcg STK-MED ONCE .ROUTE ; Start 08/26/19 at 08:36; Stop 08/26/19 at 08:37; Status DC Lidocaine HCl (Buffered Lidocaine 1%) 3 ml 1X ONCE IJ Last administered on 08/26/19at 09:30; Start 08/26/19 at 09:15; Stop 08/26/19 at 09:16; Status DC Midazolam HCl (Versed) 5 mg 1X ONCE IV Last administered on 08/26/19at 09:30; Start 08/26/19 at 09:15; Stop 08/26/19 at 09:16; Status DC Fentanyl Citrate (Fentanyl 5ml Vial) 250 mcg 1X ONCE IV Last administered on 08/26/19at 09:30; Start 08/26/19 at 09:15; Stop 08/26/19 at 09:16; Status DC Bumetanide (Bumex) 2 mg DAILY IV Last administered on 09/05/19at 08:07; Start 08/26/19 at 10:00; Stop 09/05/19 at 17:15; Status DC Potassium Chloride 75 meq/ Magnesium Sulfate 15 meq/ Multivitamins 10 ml/Chromium/ Copper/Manganese/ Seleni/Zn 0.5 ml/ Insulin Human Regular 15 unit/ Total Parenteral Nutrition/Amino Acids/Dextrose/ Fat Emulsion Intravenous 1,920 ml @ 80 mls/hr TPN CONT IV Last administered on 08/26/19at 21:59; Start 08/26/19 at 22:00; Stop 08/27/19 at 21:59; Status DC Metoclopramide HCl (Reglan Vial) 10 mg PRN Q3HRS PRN IVP NAUSEA/VOMITING-3rd choice Last administered on 09/01/19at 04:25; Start 08/27/19 at 16:45 Potassium Chloride 75 meq/ Magnesium Sulfate 15 meq/ Multivitamins 10 ml/Chromium/ Copper/Manganese/ Seleni/Zn 0.5 ml/ Insulin Human Regular 15 unit/ Total Parenteral Nutrition/Amino Acids/Dextrose/ Fat Emulsion Intravenous 1,920 ml @ 80 mls/hr TPN CONT IV Last administered on 08/27/19at 22:41; Start 08/27/19 at 22:00; Stop 08/28/19 at 21:59; Status DC Magnesium Sulfate 50 ml @ 25 mls/hr 1X ONCE IV Last administered on 08/28/19at 10:44; Start 08/28/19 at 09:00; Stop 08/28/19 at 10:59; Status DC Potassium Chloride/Water 100 ml @ 100 mls/hr 1X ONCE IV Last administered on 08/28/19at 09:37; Start 08/28/19 at 09:00; Stop 08/28/19 at 09:59; Status DC Duloxetine HCl (Cymbalta) 30 mg DAILY PO Last administered on 08/29/19at 09:48; Start 08/28/19 at 14:00; Stop 08/31/19 at 10:25; Status DC Potassium Chloride 80 meq/ Magnesium Sulfate 20 meq/ Multivitamins 10 ml/Chromium/ Copper/Manganese/ Seleni/Zn 0.5 ml/ Insulin Human Regular 15 unit/ Total Parenteral Nutrition/Amino Acids/Dextrose/ Fat Emulsion Intravenous 1,920 ml @ 80 mls/hr TPN CONT IV Last administered on 08/28/19at 21:42; Start 08/28/19 at 22:00; Stop 08/29/19 at 21:59; Status DC Potassium Chloride 80 meq/ Magnesium Sulfate 20 meq/ Multivitamins 10 ml/Chromium/ Copper/Manganese/ Seleni/Zn 0.5 ml/ Insulin Human Regular 15 unit/ Total Parenteral Nutrition/Amino Acids/Dextrose/ Fat Emulsion Intravenous 1,920 ml @ 80 mls/hr TPN CONT IV Last administered on 08/29/19at 22:20; Start 08/29/19 at 22:00; Stop 08/30/19 at 21:59; Status DC Lidocaine HCl (Buffered Lidocaine 1%) 3 ml STK-MED ONCE .ROUTE ; Start 08/30/19 at 09:54; Stop 08/30/19 at 09:55; Status DC Hydromorphone HCl (Dilaudid Standard EXECUTIVE RECEPTIONIST) 12 mg STK-MED ONCE IV ; Start 08/19/19 at 15:50; Stop 08/30/19 at 11:24; Status DC Potassium Chloride 80 meq/ Magnesium Sulfate 20 meq/ Multivitamins 10 ml/Chromium/ Copper/Manganese/ Seleni/Zn 0.5 ml/ Insulin Human Regular 15 unit/ Total Parenteral Nutrition/Amino Acids/Dextrose/ Fat Emulsion Intravenous 1,920 ml @ 80 mls/hr TPN CONT IV Last administered on 08/30/19at 21:40; Start 08/30/19 at 22:00; Stop 08/31/19 at 21:59; Status DC Lidocaine HCl (Buffered Lidocaine 1%) 6 ml 1X ONCE INJ Last administered on 08/30/19at 14:15; Start 08/30/19 at 14:15; Stop 08/30/19 at 14:16; Status DC Potassium Chloride 80 meq/ Magnesium Sulfate 20 meq/ Multivitamins 10 ml/Chromium/ Copper/Manganese/ Seleni/Zn 1 ml/ Insulin Human Regular 15 unit/ Total Parenteral Nutrition/Amino Acids/Dextrose/ Fat Emulsion Intravenous 1,920 ml @ 80 mls/hr TPN CONT IV Last administered on 08/31/19at 22:04; Start 08/31/19 at 22:00; Stop 09/01/19 at 21:59; Status DC Potassium Chloride/Water 100 ml @ 100 mls/hr 1X ONCE IV Last administered on 09/01/19at 11:34; Start 09/01/19 at 11:00; Stop 09/01/19 at 11:59; Status DC Potassium Chloride 90 meq/ Magnesium Sulfate 20 meq/ Multivitamins 10 ml/Chromium/ Copper/Manganese/ Seleni/Zn 1 ml/ Insulin Human Regular 15 unit/ Total Parenteral Nutrition/Amino Acids/Dextrose/ Fat Emulsion Intravenous 1,920 ml @ 80 mls/hr TPN CONT IV Last administered on 09/01/19at 22:57; Start 09/01/19 at 22:00; Stop 09/02/19 at 21:59; Status DC Potassium Chloride 90 meq/ Magnesium Sulfate 20 meq/ Multivitamins 10 ml/Chromium/ Copper/Manganese/ Seleni/Zn 1 ml/ Insulin Human Regular 15 unit/ Total Parenteral Nutrition/Amino Acids/Dextrose/ Fat Emulsion Intravenous 1,920 ml @ 80 mls/hr TPN CONT IV Last administered on 09/02/19at 22:48; Start 09/02/19 at 22:00; Stop 09/03/19 at 21:59; Status DC Potassium Chloride 90 meq/ Magnesium Sulfate 20 meq/ Multivitamins 10 ml/Chromium/ Copper/Manganese/ Seleni/Zn 1 ml/ Insulin Human Regular 15 unit/ Total Parenteral Nutrition/Amino Acids/Dextrose/ Fat Emulsion Intravenous 1,890 ml @ 78.75 mls/ hr TPN CONT IV Last administered on 09/03/19at 22:15; Start 09/03/19 at 22:00; Stop 09/04/19 at 21:59; Status DC Linezolid/Dextrose 300 ml @ 300 mls/hr Q12HR IV Last administered on 09/06/19at 21:08; Start 09/04/19 at 09:00; Stop 09/07/19 at 08:11; Status DC Daptomycin 450 mg/ Sodium Chloride 50 ml @ 100 mls/hr Q24H IV Last administered on 09/07/19at 09:25; Start 09/04/19 at 09:00; Stop 09/08/19 at 08:30; Status DC Potassium Chloride 90 meq/ Magnesium Sulfate 20 meq/ Multivitamins 10 ml/Chromium/ Copper/Manganese/ Seleni/Zn 1 ml/ Insulin Human Regular 15 unit/ Total Parenteral Nutrition/Amino Acids/Dextrose/ Fat Emulsion Intravenous 1,890 ml @ 78.75 mls/ hr TPN CONT IV Last administered on 09/04/19at 21:34; Start 09/04/19 at 22:00; Stop 09/05/19 at 21:59; Status DC Lorazepam (Ativan Inj) 2 mg STK-MED ONCE .ROUTE ; Start 09/04/19 at 14:58; Stop 09/04/19 at 14:58; Status DC Metoprolol Tartrate (Lopressor Vial) 5 mg 1X ONCE IVP Last administered on 09/04/19at 15:31; Start 09/04/19 at 15:15; Stop 09/04/19 at 15:16; Status DC Lorazepam (Ativan Inj) 2 mg 1X ONCE IVP Last administered on 09/04/19at 15:30; Start 09/04/19 at 15:15; Stop 09/04/19 at 15:16; Status DC Enoxaparin Sodium (Lovenox 40mg Syringe) 40 mg Q24H SQ Last administered on 09/23/19at 17:44; Start 09/04/19 at 17:00; Stop 09/25/19 at 06:50; Status DC Lorazepam (Ativan Inj) 1 mg PRN Q4HRS PRN IVP ANXIETY / AGITATION MILD-MOD Last administered on 09/18/19at 15:55; Start 09/04/19 at 19:15; Stop 09/20/19 at 11:45; Status DC Lorazepam (Ativan Inj) 2 mg PRN Q4HRS PRN IVP ANXIETY / AGITATION SEVERE Last administered on 09/19/19at 07:55; Start 09/04/19 at 19:15; Stop 09/20/19 at 11:45; Status DC Fentanyl Citrate (Fentanyl 2ml Vial) 50 mcg PRN Q4HRS PRN IVP SEVERE PAIN Last administered on 10/01/19at 05:15; Start 09/05/19 at 13:15; Stop 10/02/19 at 09:29; Status DC Fentanyl Citrate (Fentanyl 2ml Vial) 25 mcg PRN Q4HRS PRN IVP MODERATE PAIN Last administered on 10/01/19at 00:27; Start 09/05/19 at 13:15; Stop 10/02/19 at 09:30; Status DC Potassium Chloride 90 meq/ Magnesium Sulfate 20 meq/ Multivitamins 10 ml/Chromium/ Copper/Manganese/ Seleni/Zn 1 ml/ Insulin Human Regular 15 unit/ Total Parenteral Nutrition/Amino Acids/Dextrose/ Fat Emulsion Intravenous 1,890 ml @ 78.75 mls/ hr TPN CONT IV Last administered on 09/05/19at 22:18; Start 09/05/19 at 22:00; Stop 09/06/19 at 21:59; Status DC Furosemide (Lasix) 40 mg 1X ONCE IVP Last administered on 09/05/19at 21:51; Start 09/05/19 at 21:45; Stop 09/05/19 at 21:48; Status DC Albumin Human 100 ml @ 100 mls/hr 1X PRN PRN IV SEE COMMENTS; Start 09/06/19 at 01:30 Furosemide (Lasix) 40 mg [id number] IVP Last administered on 09/21/19at 08:04; Start 09/06/19 at 14:00; Stop 09/21/19 at 13:07; Status DC Potassium Chloride 90 meq/ Magnesium Sulfate 20 meq/ Multivitamins 10 ml/Chromium/ Copper/Manganese/ Seleni/Zn 1 ml/ Insulin Human Regular 15 unit/ Total Parenteral Nutrition/Amino Acids/Dextrose/ Fat Emulsion Intravenous 1,800 ml @ 75 mls/hr TPN CONT IV Last administered on 09/06/19at 22:31; Start at 22:00; Stop 09/07/19 at 21:59; Status DC Potassium Chloride 90 meq/ Magnesium Sulfate 20 meq/ Multivitamins 10 ml/Chr omium/ Copper/Manganese/ Seleni/Zn 1 ml/ Insulin Human Regular 15 unit/ Total Parenteral Nutrition/Amino Acids/Dextrose/ Fat Emulsion Intravenous 1,800 ml @ 75 mls/hr TPN CONT IV Last administered on 09/07/19at 22:28; Start 09/07/19 at 22:00; Stop 09/08/19 at 21:59; Status DC Potassium Chloride 110 meq/ Magnesium Sulfate 20 meq/ Multivitamins 10 ml/Chromium/ Copper/Manganese/ Seleni/Zn 1 ml/ Insulin Human Regular 15 unit/ Total Parenteral Nutrition/Amino Acids/Dextrose/ Fat Emulsion Intravenous 1,800 ml @ 75 mls/hr TPN CONT IV Last administered on 09/08/19at 22:01; Start 09/08/19 at 22:00; Stop 09/09/19 at 21:59; Status DC Saliva Substitute (Biotene Moisturizing Mouth) 2 spray PRN Q15MIN PRN PO DRY MOUTH; Start 09/08/19 at 11:00 Potassium Chloride 110 meq/ Magnesium Sulfate 20 meq/ Multivitamins 10 ml/Chromium/ Copper/Manganese/ Seleni/Zn 1 ml/ Insulin Human Regular 15 unit/ T otal Parenteral Nutrition/Amino Acids/Dextrose/ Fat Emulsion Intravenous 1,800 ml @ 75 mls/hr TPN CONT IV Last administered on 09/09/19at 22:21; Start 09/09/19 at 22:00; Stop 09/10/19 at 21:59; Status DC Potassium Chloride 110 meq/ Magnesium Sulfate 20 meq/ Multivitamins 10 ml/Chromium/ Copper/Manganese/ Seleni/Zn 1 ml/ Insulin Human Regular 15 unit/ Total Parenteral Nutrition/Amino Acids/Dextrose/ Fat Emulsion Intravenous 1,800 ml @ 75 mls/hr TPN CONT IV Last administered on 09/10/19at 22:04; Start at 22:00; Stop 09/11/19 at 21:59; Status DC Potassium Chloride 110 meq/ Magnesium Sulfate 20 meq/ Multivitamins 10 ml/Ch romium/ Copper/Manganese/ Seleni/Zn 1 ml/ Insulin Human Regular 15 unit/ Total Parenteral Nutrition/Amino Acids/Dextrose/ Fat Emulsion Intravenous 1,800 ml @ 75 mls/hr TPN CONT IV Last administered on 09/11/19at 22:48; Start 09/11/19 at 22:00; Stop 09/12/19 at 21:59; Status DC Potassium Chloride 70 meq/ Magnesium Sulfate 20 meq/ Multivitamins 10 ml/Chromium/ Copper/Manganese/ Seleni/Zn 1 ml/ Insulin Human Regular 15 unit/ Total Parenteral Nutrition/Amino Acids/Dextrose/ Fat Emulsion Intravenous 1,800 ml @ 75 mls/hr TPN CONT IV Last administered on 09/12/19at 21:39; Start 09/12/19 at 22:00; Stop 09/13/19 at 21:59; Status DC Meropenem 500 mg/ Sodium Chloride 50 ml @ 100 mls/hr Q6HRS IV Last administered on 09/14/19at 06:02; Start 09/12/19 at 18:00; Stop 09/14/19 at 09:59; Status DC Barium Sulfate (Varibar Thin Liquid Apple) 148 gm 1X ONCE PO ; Start 09/13/19 at 11:45; Stop 09/13/19 at 11:49; Status DC Potassium Chloride 70 meq/ Magnesium Sulfate 20 meq/ Multivitamins 10 ml/Chromium/ Copper/Manganese/ Seleni/Zn 1 ml/ Insulin Human Regular 15 unit/ Total Parenteral Nutrition/Amino Acids/Dextrose/ Fat Emulsion Intravenous 1,800 ml @ 75 mls/hr TPN CONT IV Last administered on 09/13/19at 22:27; Start 09/13/19 at 22:00; Stop 09/14/19 at 21:59; Status DC Piperacillin Sod/ Tazobactam Sod 3.375 gm/Sodium Chloride 50 ml @ 100 mls/hr Q6HRS IV Last administered on 09/22/19at 06:10; Start 09/14/19 at 12:00; Stop 09/22/19 at 07:26; Status DC Potassium Chloride 70 meq/ Magnesium Sulfate 20 meq/ Multivitamins 10 ml/ Chromium/ Copper/Manganese/ Seleni/Zn 1 ml/ Insulin Human Regular 15 unit/ Total Parenteral Nutrition/Amino Acids/Dextrose/ Fat Emulsion Intravenous 1,800 ml @ 75 mls/hr TPN CONT IV Last administered on 09/14/19at 22:03; Start 09/14/19 at 22:00; Stop 09/15/19 at 21:59; Status DC Potassium Chloride 70 meq/ Magnesium Sulfate 20 meq/ Multivitamins 10 ml/Chromium/ Copper/Manganese/ Seleni/Zn 1 ml/ Insulin Human Regular 15 unit/ Total Parenteral Nutrition/Amino Acids/Dextrose/ Fat Emulsion Intravenous 1,800 ml @ 75 mls/hr TPN CONT IV Last administered on 09/15/19at 22:33; Start 09/15/19 at 22:00; Stop 09/16/19 at 21:59; Status DC Potassium Chloride 70 meq/ Magnesium Sulfate 20 meq/ Multivitamins 10 ml/Chromium/ Copper/Manganese/ Seleni/Zn 1 ml/ Insulin Human Regular 15 unit/ Total Parenteral Nutrition/Amino Acids/Dextrose/ Fat Emulsion Intravenous 1,800 ml @ 75 mls/hr TPN CONT IV Last administered on 09/16/19at 23:13; Start 09/16/19 at 22:00; Stop 09/17/19 at 21:59; Status DC Potassium Chloride 80 meq/ Magnesium Sulfate 20 meq/ Multivitamins 10 ml/Chromium/ Copper/Manganese/ Seleni/Zn 1 ml/ Insulin Human Regular 15 unit/ Total Parenteral Nutrition/Amino Acids/Dextrose/ Fat Emulsion Intravenous 1,800 ml @ 75 mls/hr TPN CONT IV Last administered on 09/17/19at 22:30; Start 09/17/19 at 22:00; Stop 09/18/19 at 21:59; Status DC Potassium Chloride 80 meq/ Magnesium Sulfate 20 meq/ Multivitamins 10 ml/Chromium/ Copper/Manganese/ Seleni/Zn 1 ml/ Insulin Human Regular 15 unit/ Total Parenteral Nutrition/Amino Acids/Dextrose/ Fat Emulsion Intravenous 1,800 ml @ 75 mls/hr TPN CONT IV Last administered on 09/18/19at 21:54; Start 09/18/19 at 22:00; Stop 09/19/19 at 21:59; Status DC Potassium Chloride/Water 100 ml @ 100 mls/hr 1X ONCE IV Last administered on 09/19/19at 10:15; Start 09/19/19 at 10:00; Stop 09/19/19 at 10:59; Status DC Potassium Chloride 90 meq/ Magnesium Sulfate 20 meq/ Multivitamins 10 ml/Chromium/ Copper/Manganese/ Seleni/Zn 1 ml/ Insulin Human Regular 20 unit/ Total Parenteral Nutrition/Amino Acids/Dextrose/ Fat Emulsion Intravenous 1,800 ml @ 75 mls/hr TPN CONT IV Last administered on 09/19/19at 22:28; Start 09/19/19 at 22:00; Stop 09/20/19 at 21:59; Status DC Potassium Chloride 90 meq/ Magnesium Sulfate 20 meq/ Multivitamins 10 ml/Chromium/ Copper/Manganese/ Seleni/Zn 1 ml/ Insulin Human Regular 20 unit/ Total Parenteral Nutrition/Amino Acids/Dextrose/ Fat Emulsion Intravenous 1,800 ml @ 75 mls/hr TPN CONT IV Last administered on 09/20/19at 22:08; Start 09/20/19 at 22:00; Stop 09/21/19 at 21:59; Status DC Lorazepam (Ativan Inj) 0.25 mg PRN Q4HRS PRN IVP ANXIETY / AGITATION Last administered on 10/30/19at 00:27; Start 09/21/19 at 07:30 Potassium Chloride 90 meq/ Magnesium Sulfate 20 meq/ Multivitamins 10 ml/Chromium/ Copper/Manganese/ Seleni/Zn 1 ml/ Insulin Human Regular 20 unit/ Total Parenteral Nutrition/Amino Acids/Dextrose/ Fat Emulsion Intravenous 1,800 ml @ 75 mls/hr TPN CONT IV Last administered on 09/21/19at 23:13; Start 09/21/19 at 22:00; Stop 09/22/19 at 21:59; Status DC Furosemide (Lasix) 40 mg DAILY IVP Last administered on 09/23/19at 11:14; Start 09/21/19 at 13:30; Stop 09/25/19 at 09:12; Status DC Fluoxetine HCl (PROzac) 20 mg QHS PEG Last administered on 11/01/19at 20:36; Start 09/22/19 at 21:00 Fentanyl (Duragesic 50mcg/ Hr Patch) 1 patch Q72H TD Last administered on 09/22/19at 21:22; Start 09/22/19 at 21:00; Stop 10/01/19 at 12:00; Status DC Potassium Chloride 40 meq/ Potassium Acetate 60 meq/Magnesium Sulfate 10 meq/ Multivitamins 10 ml/Chromium/ Copper/Manganese/ Seleni/Zn 1 ml/ Insulin Human Regular 20 unit/ Total Parenteral Nutrition/Amino Acids/Dextrose/ Fat Emulsion Intravenous 1,800 ml @ 75 mls/hr TPN CONT IV Last administered on 09/23/19at 00:03; Start 09/22/19 at 22:00; Stop 09/23/19 at 21:59; Status DC Potassium Acetate 80 meq/Magnesium Sulfate 5 meq/ Multivitamins 10 ml/Chromium/ Copper/Manganese/ Seleni/Zn 1 ml/ Insulin Human Regular 20 unit/ Total Parenter al Nutrition/Amino Acids/Dextrose/ Fat Emulsion Intravenous 1,920 ml @ 80 mls/hr TPN CONT IV Last administered on 09/23/19at 21:59; Start 09/23/19 at 22:00; Stop 09/24/19 at 21:59; Status DC Potassium Acetate 60 meq/Magnesium Sulfate 5 meq/ Multivitamins 10 ml/Chromium/ Copper/Manganese/ Seleni/Zn 1 ml/ Insulin Human Regular 30 unit/ Total Parenteral Nutrition/Amino Acids/Dextrose/ Fat Emulsion Intravenous 1,920 ml @ 80 mls/hr TPN CONT IV Last administered on 09/24/19at 21:54; Start 09/24/19 at 22:00; Stop 09/25/19 at 21:59; Status DC Norepinephrine Bitartrate 8 mg/ Dextrose 258 ml @ 13.332 mls/ hr CONT PRN IV PER PROTOCOL Last administered on 10/20/19at 09:09; Start 09/25/19 at 06:30 Albumin Human 500 ml @ 125 mls/hr 1X ONCE IV Last administered on 09/25/19at 08:10; Start 09/25/19 at 08:15; Stop 09/25/19 at 12:14; Status DC Potassium Acetate 40 meq/Magnesium Sulfate 5 meq/ Multivitamins 10 ml/Chromium/ Copper/Manganese/ Seleni/Zn 1 ml/ Insulin Human Regular 30 unit/ Total Parenteral Nutrition/Amino Acids/Dextrose/ Fat Emulsion Intravenous 1,920 ml @ 80 mls/hr TPN CONT IV Last administered on 09/25/19at 22:23; Start 09/25/19 at 22:00; Stop 09/26/19 at 21:59; Status DC Meropenem 1 gm/ Sodium Chloride 100 ml @ 200 mls/hr Q8HRS IV ; Start 09/25/19 at 14:00; Status Cancel Meropenem 1 gm/ Sodium Chloride 100 ml @ 200 mls/hr Q8HRS IV Last administered on 09/25/19at 11:04; Start 09/25/19 at 10:00; Stop 09/25/19 at 13:00; Status DC Meropenem 1 gm/ Sodium Chloride 100 ml @ 200 mls/hr Q12HR IV Last administered on 10/13/19at 08:27; Start 09/25/19 at 21:00; Stop 10/13/19 at 08:56; Status DC Sodium Chloride 1,000 ml @ 1,000 mls/hr 1X ONCE IV Last administered on 09/25/19at 11:06; Start 09/25/19 at 10:45; Stop 09/25/19 at 11:44; Status DC Micafungin Sodium 100 mg/Dextrose 100 ml @ 100 mls/hr Q24H IV Last administered on 10/12/19at 12:34; Start 09/25/19 at 11:00; Stop 10/13/19 at 08:56; Status DC Daptomycin 410 mg/ Sodium Chloride 50 ml @ 100 mls/hr Q24H IV Last administered on 09/27/19at 13:33; Start 09/25/19 at 14:00; Stop 09/28/19 at 08:30; Status DC Midazolam HCl (Versed) 2 mg STK-MED ONCE .ROUTE ; Start 09/25/19 at 14:47; Stop 09/25/19 at 14:48; Status DC Fentanyl Citrate (Fentanyl 2ml Vial) 100 mcg STK-MED ONCE .ROUTE ; Start 09/25/19 at 14:47; Stop 09/25/19 at 14:48; Status DC Flumazenil (Romazicon) 0.5 mg STK-MED ONCE IV ; Start 09/25/19 at 14:48; Stop 09/25/19 at 14:48; Status DC Naloxone HCl (Narcan) 0.4 mg STK-MED ONCE .ROUTE ; Start 09/25/19 at 14:48; Stop 09/25/19 at 14:48; Status DC Lidocaine HCl (Lidocaine 1% 20ml Vial) 20 ml STK-MED ONCE .ROUTE ; Start 09/25/19 at 14:48; Stop 09/25/19 at 14:48; Status DC Midazolam HCl (Versed) 2 mg 1X ONCE IV Last administered on 09/25/19at 15:28; Start 09/25/19 at 15:00; Stop 09/25/19 at 15:01; Status DC Fentanyl Citrate (Fentanyl 2ml Vial) 100 mcg 1X ONCE IV Last administered on 09/25/19at 15:28; Start 09/25/19 at 15:00; Stop 09/25/19 at 15:01; Status DC Lidocaine HCl (Lidocaine 1% 20ml Vial) 20 ml 1X ONCE INJ Last administered on 09/25/19at 15:30; Start 09/25/19 at 15:00; Stop 09/25/19 at 15:01; Status DC Sodium Chloride 1,000 ml @ 100 mls/hr Q10H IV Last administered on 10/04/19at 07:30; Start 09/25/19 at 20:00; Stop 10/04/19 at 11:26; Status DC Sodium Bicarbonate (Sodium Bicarb Adult 8.4% Syr) 50 meq 1X ONCE IV Last administered on 09/25/19at 21:47; Start 09/25/19 at 22:00; Stop 09/25/19 at 22:01; Status DC Potassium Acetate 40 meq/Magnesium Sulfate 5 meq/ Multivitamins 10 ml/Chromium/ Copper/Manganese/ Seleni/Zn 1 ml/ Insulin Human Regular 30 unit/ Total Parenteral Nutrition/Amino Acids/Dextrose/ Fat Emulsion Intravenous 1,920 ml @ 80 mls/hr TPN CONT IV Last administered on 09/26/19at 22:28; Start 09/26/19 at 22:00; Stop 09/27/19 at 21:59; Status DC Sodium Chloride 500 ml @ 500 mls/hr 1X ONCE IV Last administered on 09/27/19at 06:39; Start 09/27/19 at 06:45; Stop 09/27/19 at 07:44; Status DC Potassium Acetate 40 meq/Magnesium Sulfate 5 meq/ Multivitamins 10 ml/Chromium/ Copper/Manganese/ Seleni/Zn 1 ml/ Insulin Human Regular 30 unit/ Total Parenteral Nutrition/Amino Acids/Dextrose/ Fat Emulsion Intravenous 1,920 ml @ 80 mls/hr TPN CONT IV Last administered on 09/27/19at 22:03; Start 09/27/19 at 22:00; Stop 09/28/19 at 21:59; Status DC Metoprolol Tartrate (Lopressor Vial) 5 mg PRN Q6HRS PRN IVP HYPERTENSION Last administered on 10/30/19at 18:01; Start 09/28/19 at 09:00 Potassium Acetate 40 meq/Magnesium Sulfate 5 meq/ Multivitamins 10 ml/Chromium/ Copper/Manganese/ Seleni/Zn 1 ml/ Insulin Human Regular 30 unit/ Total Parenteral Nutrition/Amino Acids/Dextrose/ Fat Emulsion Intravenous 1,920 ml @ 80 mls/hr TPN CONT IV Last administered on 09/28/19at 21:26; Start 09/28/19 at 22:00; Stop 09/29/19 at 21:59; Status DC Potassium Acetate 40 meq/Magnesium Sulfate 5 meq/ Multivitamins 10 ml/Chromium/ Copper/Manganese/ Seleni/Zn 1 ml/ Insulin Human Regular 30 unit/ Total Parenteral Nutrition/Amino Acids/Dextrose/ Fat Emulsion Intravenous 1,920 ml @ 80 mls/hr TPN CONT IV Last administered on 09/29/19at 23:23; Start 09/29/19 at 22:00; Stop 09/30/19 at 21:59; Status DC Potassium Acetate 40 meq/Magnesium Sulfate 5 meq/ Multivitamins 10 ml/Chromium/ Copper/Manganese/ Seleni/Zn 1 ml/ Insulin Human Regular 30 unit/ Total Parent eral Nutrition/Amino Acids/Dextrose/ Fat Emulsion Intravenous 1,920 ml @ 80 mls/hr TPN CONT IV Last administered on 09/30/19at 21:35; Start 09/30/19 at 22:00; Stop 10/01/19 at 21:59; Status DC Furosemide (Lasix) 20 mg 1X ONCE IVP Last administered on 10/01/19at 06:26; Start 10/01/19 at 06:15; Stop 10/01/19 at 06:16; Status DC Methylprednisolone Sodium Succinate (SOLU-Medrol 125MG VIAL) 125 mg 1X ONCE IV Last administered on 10/01/19at 06:26; Start 10/01/19 at 06:15; Stop 10/01/19 at 06:16; Status DC Albuterol/ Ipratropium (Duoneb) 3 ml Q4HRS NEB Last administered on 11/02/19at 11:55; Start 10/01/19 at 08:00 Fentanyl Citrate 30 ml @ 0 mls/hr CONT PRN IV SEE PROTOCOL Last administered on 10/22/19at 08:03; Start 10/01/19 at 06:00; Stop 10/22/19 at 12:42; Status DC Propofol 100 ml @ 0 mls/hr CONT PRN IV SEE PROTOCOL Last administered on 10/08/19at 23:50; Start 10/01/19 at 06:00 Fentanyl Citrate (Fentanyl 2ml Vial) 25 mcg PRN Q1HR PRN IV SEE COMMENTS Last administered on 11/01/19at 20:37; Start 10/01/19 at 06:00 Fentanyl Citrate (Fentanyl 2ml Vial) 50 mcg PRN Q1HR PRN IV SEE COMMENTS Last administered on 10/30/19at 18:02; Start 10/01/19 at 06:00 Chlorhexidine Gluconate (Peridex) 15 ml BID MM ; Start 10/01/19 at 09:00; Stop 10/01/19 at 07:58; Status DC Potassium Acetate 40 meq/Magnesium Sulfate 5 meq/ Multivitamins 10 ml/Chromium/ Copper/Manganese/ Seleni/Zn 1 ml/ Insulin Human Regular 30 unit/ Total Parenteral Nutrition/Amino Acids/Dextrose/ Fat Emulsion Intravenous 1,920 ml @ 80 mls/hr TPN CONT IV Last administered on 10/01/19at 21:19; Start 10/01/19 at 22:00; Stop 10/02/19 at 21:59; Status DC Acetylcysteine (Mucomyst 20% Resp Treatment) 600 mg BID NEB Last administered on 10/07/19at 09:33; Start 10/01/19 at 21:00; Stop 10/07/19 at 10:39; Status DC Magnesium Sulfate 100 ml @ 25 mls/hr 1X ONCE IV Last administered on 10/01/19at 15:48; Start 10/01/19 at 15:45; Stop 10/01/19 at 19:44; Status DC Potassium Acetate 40 meq/Magnesium Sulfate 5 meq/ Multivitamins 10 ml/Chromium/ Copper/Manganese/ Seleni/Zn 1 ml/ Insulin Human Regular 30 unit/ Total Parenteral Nutrition/Amino Acids/Dextrose/ Fat Emulsion Intravenous 1,920 ml @ 80 mls/hr TPN CONT IV Last administered on 10/02/19at 21:35; Start 10/02/19 at 22:00; Stop 10/03/19 at 21:59; Status DC Potassium Chloride/Water 100 ml @ 100 mls/hr Q1H IV Last administered on 10/03/19at 08:31; Start 10/03/19 at 07:00; Stop 10/03/19 at 08:59; Status DC Potassium Acetate 40 meq/Magnesium Sulfate 5 meq/ Multivitamins 10 ml/Chromium/ Copper/Manganese/ Seleni/Zn 1 ml/ Insulin Human Regular 30 unit/ Total Parenteral Nutrition/Amino Acids/Dextrose/ Fat Emulsion Intravenous 1,920 ml @ 80 mls/hr TPN CONT IV Last administered on 10/03/19at 21:54; Start 10/03/19 at 22:00; Stop 10/04/19 at 19:34; Status DC Lidocaine HCl (Buffered Lidocaine 1%) 3 ml STK-MED ONCE .ROUTE ; Start 10/03/19 at 12:14; Stop 6/15/20 at 12:14; Status DC Lidocaine HCl (Buffered Lidocaine 1%) 3 ml 1X ONCE IJ Last administered on 10/03/19at 13:11; Start 10/03/19 at 13:00; Stop 10/03/19 at 13:01; Status DC Magnesium Sulfate 50 ml @ 25 mls/hr 1X ONCE IV ; Start 10/04/19 at 08:15; Stop 10/04/19 at 10:14; Status DC Potassium Acetate 40 meq/Magnesium Sulfate 10 meq/ Multivitamins 10 ml/Chromium/ Copper/Manganese/ Seleni/Zn 1 ml/ Insulin Human Regular 20 unit/ Total Parenteral Nutrition/Amino Acids/Dextrose/ Fat Emulsion Intravenous 1,920 ml @ 80 mls/hr TPN CONT IV Last administered on 10/04/19at 21:32; Start 10/04/19 at 22:00; Stop 10/05/19 at 21:59; Status DC Potassium Chloride/Water 100 ml @ 100 mls/hr Q1H IV Last administered on 10/05/19at 09:12; Start 10/05/19 at 08:00; Stop 10/05/19 at 09:59; Status DC Alteplase, Recombinant (Cathflo For Central Catheter Clearance) 4 mg 1X ONCE INT CAT ; Start 10/05/19 at 09:15; Stop 10/05/19 at 09:16; Status UNV Alteplase, Recombinant (Cathflo For Central Catheter Clearance) 4 mg 1X ONCE INT CAT ; Start 10/05/19 at 09:15; Stop 10/05/19 at 09:16; Status UNV Alteplase, Recombinant (Cathflo For Central Catheter Clearance) 4 mg 1X ONCE INT CAT ; Start 10/05/19 at 09:15; Stop 10/05/19 at 09:16; Status UNV Alteplase, Recombinant 4 mg/ Sodium Chloride 20 ml @ 20 mls/hr 1X ONCE IV Last administered on 10/05/19at 10:10; Start 10/05/19 at 10:00; Stop 10/05/19 at 10:59; Status DC Alteplase, Recombinant 4 mg/ Sodium Chloride 20 ml @ 20 mls/hr 1X ONCE IV Last administered on 10/05/19at 10:09; Start 10/05/19 at 10:00; Stop 10/05/19 at 10:59; Status DC Alteplase, Recombinant 4 mg/ Sodium Chloride 20 ml @ 20 mls/hr 1X ONCE IV Last administered on 10/05/19at 10:09; Start 10/05/19 at 10:00; Stop 10/05/19 at 10:59; Status DC Potassium Acetate 60 meq/Magnesium Sulfate 10 meq/ Multivitamins 10 ml/Chromium/ Copper/Manganese/ Seleni/Zn 1 ml/ Insulin Human Regular 20 unit/ Total Parenteral Nutrition/Amino Acids/Dextrose/ Fat Emulsion Intravenous 1,920 ml @ 80 mls/hr TPN CONT IV Last administered on 10/05/19at 21:55; Start 10/05/19 at 22:00; Stop 10/06/19 at 21:59; Status DC Albumin Human 500 ml @ 125 mls/hr 1X ONCE IV Last administered on 10/06/19at 12:01; Start 10/06/19 at 11:15; Stop 10/06/19 at 15:14; Status DC Sodium Chloride 500 ml @ 500 mls/hr 1X ONCE IV Last administered on 10/06/19at 13:50; Start 10/06/19 at 11:15; Stop 10/06/19 at 12:14; Status DC Potassium Acetate 60 meq/Magnesium Sulfate 14 meq/ Multivitamins 10 ml/Chromium/ Copper/Manganese/ Seleni/Zn 1 ml/ Insulin Human Regular 20 unit/ Total Parenteral Nutrition/Amino Acids/Dextrose/ Fat Emulsion Intravenous 1,920 ml @ 80 mls/hr TPN CONT IV Last administered on 10/06/19at 22:26; Start 10/06/19 at 22:00; Stop 10/07/19 at 21:59; Status DC Ciprofloxacin/ Dextrose 200 ml @ 200 mls/hr Q12HR IV Last administered on 10/13/19at 08:27; Start 10/06/19 at 21:00; Stop 10/13/19 at 08:56; Status DC Albumin Human 250 ml @ 62.5 mls/hr 1X ONCE IV Last administered on 10/07/19at 11:09; Start 10/07/19 at 11:00; Stop 10/07/19 at 14:59; Status DC Furosemide (Lasix) 20 mg 1X ONCE IVP Last administered on 10/07/19at 14:52; Start 10/07/19 at 10:45; Stop 10/07/19 at 10:49; Status DC Potassium Acetate 60 meq/Magnesium Sulfate 14 meq/ Multivitamins 10 ml/Chromium/ Copper/Manganese/ Seleni/Zn 1 ml/ Insulin Human Regular 15 unit/ Total Parenteral Nutrition/Amino Acids/Dextrose/ Fat Emulsion Intravenous 1,920 ml @ 80 mls/hr TPN CONT IV Last administered on 10/07/19at 22:08; Start 10/07/19 at 22:00; Stop 10/08/19 at 21:59; Status DC Potassium Acetate 60 meq/Magnesium Sulfate 14 meq/ Multivitamins 10 ml/Chromium/ Copper/Manganese/ Seleni/Zn 1 ml/ Insulin Human Regular 15 unit/ Total Parenteral Nutrition/Amino Acids/Dextrose/ Fat Emulsion Intravenous 1,920 ml @ 80 mls/hr TPN CONT IV Last administered on 10/08/19at 22:12; Start 10/08/19 at 22:00; Stop 10/09/19 at 21:59; Status DC Potassium Acetate 60 meq/Magnesium Sulfate 14 meq/ Multivitamins 10 ml/Chromium/ Copper/Manganese/ Seleni/Zn 1 ml/ Insulin Human Regular 15 unit/ Total Parenteral Nutrition/Amino Acids/Dextrose/ Fat Emulsion Intravenous 1,920 ml @ 80 mls/hr TPN CONT IV Last administered on 10/09/19at 22:22; Start 10/09/19 at 22:00; Stop 10/10/19 at 21:59; Status DC Furosemide (Lasix) 20 mg 1X ONCE IVP Last administered on 10/10/19at 11:07; Start 10/10/19 at 10:30; Stop 10/10/19 at 10:34; Status DC Potassium Acetate 60 meq/Magnesium Sulfate 14 meq/ Multivitamins 10 ml/Chromium/ Copper/Manganese/ Seleni/Zn 1 ml/ Insulin Human Regular 15 unit/ Sodium Chloride 20 meq/Total Parenteral Nutrition/Amino Acids/Dextrose/ Fat Emulsion Intravenous 1,920 ml @ 80 mls/hr TPN CONT IV Last administered on 10/10/19at 21:54; Start 10/10/19 at 22:00; Stop 10/11/19 at 21:59; Status DC Potassium Acetate 30 meq/Magnesium Sulfate 14 meq/ Multivitamins 10 ml/Chromium/ Copper/Manganese/ Seleni/Zn 1 ml/ Insulin Human Regular 15 unit/ Sodium Chloride 20 meq/Potassium Chloride 30 meq/ Total Parenteral Nutrition/Amino Acids/Dextrose/ Fat Emulsion Intravenous 1,920 ml @ 80 mls/hr TPN CONT IV Last administered on 10/11/19at 21:46; Start 10/11/19 at 22:00; Stop 10/12/19 at 21:59; Status DC Sodium Chloride 80 meq/Potassium Chloride 30 meq/ Potassium Acetate 30 meq/Magnesium Sulfate 14 meq/ Multivitamins 10 ml/Chromium/ Copper/Manganese/ Seleni/Zn 1 ml/ Insulin Human Regular 15 unit/ Total Parenteral Nutrition/Amino Acids/Dextrose/ Fat Emulsion Intravenous 1,920 ml @ 80 mls/hr TPN CONT IV Last administered on 10/12/19at 22:33; Start 10/12/19 at 22:00; Stop 10/13/19 at 21:59; Status DC Furosemide (Lasix) 40 mg 1X ONCE IVP Last administered on 10/12/19at 16:27; Start 10/12/19 at 15:30; Stop 10/12/19 at 15:33; Status DC Albumin Human 250 ml @ 62.5 mls/hr 1X ONCE IV Last administered on 10/12/19at 16:27; Start 10/12/19 at 15:30; Stop 10/12/19 at 19:29; Status DC Sodium Chloride 80 meq/Potassium Chloride 30 meq/ Potassium Acetate 30 meq/Magnesium Sulfate 14 meq/ Multivitamins 10 ml/Chromium/ Copper/Manganese/ Seleni/Zn 1 ml/ Insulin Human Regular 15 unit/ Total Parenteral Nutrition/Amino Acids/Dextrose/ Fat Emulsion Intravenous 1,920 ml @ 80 mls/hr TPN CONT IV Last administered on 10/13/19at 22:25; Start 10/13/19 at 22:00; Stop 10/14/19 at 21:59; Status DC Sodium Chloride 80 meq/Potassium Chloride 30 meq/ Potassium Acetate 30 meq/Magnesium Sulfate 14 meq/ Multivitamins 10 ml/Chromium/ Copper/Manganese/ Seleni/Zn 1 ml/ Insulin Human Regular 15 unit/ Total Parenteral Nutrition/Amino Acids/Dextrose/ Fat Emulsion Intravenous 1,920 ml @ 80 mls/hr TPN CONT IV Last administered on 10/14/19at 21:32; Start 10/14/19 at 22:00; Stop 10/15/19 at 21:59; Status DC Sodium Chloride 80 meq/Potassium Chloride 30 meq/ Potassium Acetate 30 meq/Magnesium Sulfate 14 meq/ Multivitamins 10 ml/Chromium/ Copper/Manganese/ Seleni/Zn 1 ml/ Insulin Human Regular 15 unit/ Total Parenteral Nutrition/Amino Acids/Dextrose/ Fat Emulsion Intravenous 1,920 ml @ 80 mls/hr TPN CONT IV Last administered on 10/15/19at 21:53; Start 10/15/19 at 22:00; Stop 10/16/19 at 21:59; Status DC Acetylcysteine (Mucomyst 20% Resp Treatment) 600 mg RTBID NEB Last administered on 11/02/19at 07:18; Start 10/15/19 at 12:00 Sodium Chloride 80 meq/Potassium Chloride 30 meq/ Potassium Acetate 30 meq/Magnesium Sulfate 14 meq/ Multivitamins 10 ml/Chromium/ Copper/Manganese/ Seleni/Zn 1 ml/ Insulin Human Regular 15 unit/ Total Parenteral Nutrition/Amino Acids/Dextrose/ Fat Emulsion Intravenous 1,920 ml @ 80 mls/hr TPN CONT IV Last administered on 10/16/19at 22:06; Start 10/16/19 at 22:00; Stop 10/17/19 at 21:59; Status DC Meropenem 500 mg/ Sodium Chloride 50 ml @ 100 mls/hr Q6HRS IV Last administered on 11/02/19at 05:56; Start 10/16/19 at 18:00 Daptomycin 500 mg/ Sodium Chloride 50 ml @ 100 mls/hr Q24H IV Last administered on 10/24/19at 21:47; Start 10/16/19 at 19:00; Stop 10/25/19 at 08:13; Status DC Sodium Chloride 80 meq/Potassium Chloride 30 meq/ Potassium Acetate 30 meq/Magnesium Sulfate 14 meq/ Multivitamins 10 ml/Chromium/ Copper/Manganese/ Seleni/Zn 1 ml/ Insulin Human Regular 15 unit/ Total Parenteral Nutrition/Amino Acids/Dextrose/ Fat Emulsion Intravenous 1,920 ml @ 80 mls/hr TPN CONT IV Last administered on 10/17/19at 22:09; Start 10/17/19 at 22:00; Stop 10/18/19 at 21:59; Status DC Heparin Sodium (Porcine) 1000 unit/Sodium Chloride 1,001 ml @ 1,001 mls/hr 1X ONCE IRR ; Start 10/18/19 at 06:00; Stop 10/18/19 at 06:59; Status DC Propofol (Diprivan) 200 mg STK-MED ONCE IV ; Start 10/18/19 at 07:44; Stop 10/18/19 at 07:44; Status DC Lidocaine HCl (Lidocaine Pf 2% Vial) 5 ml STK-MED ONCE .ROUTE ; Start 10/18/19 at 07:44; Stop 10/18/19 at 07:44; Status DC Fentanyl Citrate (Fentanyl 2ml Vial) 100 mcg STK-MED ONCE .ROUTE ; Start 10/18/19 at 07:44; Stop 10/18/19 at 07:44; Status DC Rocuronium Union (Zemuron) 100 mg STK-MED ONCE .ROUTE ; Start 10/18/19 at 07:44; Stop 10/18/19 at 07:44; Status DC Micafungin Sodium 100 mg/Dextrose 100 ml @ 100 mls/hr Q24H IV Last administered on 11/02/19at 08:15; Start 10/18/19 at 08:30 Bupivacaine HCl/ Epinephrine Bitart (Sensorcain-Epi 0.5%-1:[id number] Mpf) 30 ml STK-MED ONCE .ROUTE ; Start 10/18/19 at 08:34; Stop 10/18/19 at 08:35; Status DC Iohexol (Omnipaque 300 Mg/ml) 50 ml STK-MED ONCE .ROUTE Last administered on 10/18/19at 13:30; Start 10/18/19 at 08:35; Stop 10/18/19 at 08:35; Status DC Sodium Chloride 80 meq/Potassium Chloride 30 meq/ Potassium Acetate 30 meq/Magnesium Sulfate 14 meq/ Multivitamins 10 ml/Chromium/ Copper/Manganese/ Seleni/Zn 1 ml/ Insulin Human Regular 15 unit/ Total Parenteral Nutrition/Amino Acids/Dextrose/ Fat Emulsion Intravenous 1,920 ml @ 80 mls/hr TPN CONT IV Last administered on 10/19/19at 01:22; Start 10/18/19 at 22:00; Stop 10/19/19 at 21:59; Status DC Phenylephrine HCl (Brayden-Synephrine Inj) 10 mg STK-MED ONCE .ROUTE ; Start 10/18/19 at 10:15; Stop 10/18/19 at 10:15; Status DC Desflurane (Suprane) 90 ml STK-MED ONCE IH ; Start 10/18/19 at 10:18; Stop 10/18/19 at 10:19; Status DC Albumin Human 500 ml @ As Directed STK-MED ONCE IV ; Start 10/18/19 at 11:06; Stop 10/18/19 at 11:06; Status DC Vasopressin (Vasostrict) 20 unit STK-MED ONCE .ROUTE ; Start 10/18/19 at 12:23; Stop 10/18/19 at 12:23; Status DC Phenylephrine HCl (Brayden-Synephrine Inj) 10 mg STK-MED ONCE .ROUTE ; Start 10/18/19 at 13:33; Stop 10/18/19 at 13:33; Status DC Phenylephrine HCl (Brayden-Synephrine Inj) 10 mg STK-MED ONCE .ROUTE ; Start 10/18/19 at 13:33; Stop 10/18/19 at 13:33; Status DC Ondansetron HCl (Zofran) 4 mg STK-MED ONCE .ROUTE ; Start 10/18/19 at 13:33; Stop 10/18/19 at 13:33; Status DC Enoxaparin Sodium (Lovenox 40mg Syringe) 40 mg Q24H SQ Last administered on at 09:01; Start 10/19/19 at 08:00 Sodium Chloride (Normal Saline Flush) 3 ml QSHIFT PRN IV AFTER MEDS AND BLOOD DRAWS; Start 10/18/19 at 14:45 Naloxone HCl (Narcan) 0.4 mg PRN Q2MIN PRN IV SEE INSTRUCTIONS; Start 10/18/19 at 14:45 Sodium Chloride 1,000 ml @ 25 mls/hr Q24H IV Last administered on 11/01/19at 14:33; Start 10/18/19 at 14:33 Morphine Sulfate (Morphine Sulfate) 1 mg PRN Q1HR PRN IV PAIN; Start 10/18/19 at 14:45 Midazolam HCl 100 mg/Sodium Chloride 100 ml @ 1 mls/hr CONT PRN IV SEE I/O RE CORD Last administered on 10/21/19at 18:48; Start 10/18/19 at 14:45 Phenylephrine HCl (PHENYLEPHRINE in 0.9% NACL PF) 1 mg STK-MED ONCE IV ; Start 10/18/19 at 14:44; Stop 10/18/19 at 14:45; Status DC Ephedrine Sulfate (ePHEDrine PF IN SALINE SYRINGE) 50 mg STK-MED ONCE IV ; Start 10/18/19 at 14:45; Stop 10/18/19 at 14:45; Status DC Vasopressin 20 unit/Dextrose 101 ml @ 12 mls/hr CONT PRN IV SEE I/O RECORD Last administered on 10/25/19at 04:17; Start 10/18/19 at 15:30 Sodium Chloride 1,000 ml @ 1,000 mls/hr 1X ONCE IV Last administered on 10/18/19at 15:42; Start 10/18/19 at 15:45; Stop 10/18/19 at 16:44; Status DC Albumin Human 500 ml @ 125 mls/hr 1X ONCE IV ; Start 10/18/19 at 16:00; Stop 10/18/19 at 19:59; Status DC Albumin Human 500 ml @ 125 mls/hr PRN Q1HR PRN IV PER PROTOCOL; Start 10/18/19 at 15:45 Magnesium Sulfate 50 ml @ 25 mls/hr 1X ONCE IV Last administered on 10/18/19at 17:02; Start 10/18/19 at 16:30; Stop 10/18/19 at 18:29; Status DC Sodium Bicarbonate (Sodium Bicarb Adult 8.4% Syr) 50 meq STK-MED ONCE .ROUTE ; Start 10/18/19 at 16:20; Stop 10/18/19 at 16:20; Status DC Sodium Bicarbonate (Sodium Bicarb Adult 8.4% Syr) 100 meq 1X ONCE IV Last administered on 10/18/19at 17:07; Start 10/18/19 at 16:30; Stop 10/18/19 at 16:31; Status DC Sodium Bicarbonate 150 meq/Dextrose 1,150 ml @ 75 mls/hr 1X ONCE IV Last administered on 10/18/19at 20:02; Start 10/18/19 at 16:30; Stop 10/19/19 at 07:49; Status DC Sodium Chloride 80 meq/Potassium Chloride 30 meq/ Potassium Acetate 30 meq/Magnesium Sulfate 14 meq/ Multivitamins 10 ml/Chromium/ Copper/Manganese/ Seleni/Zn 1 ml/ Insulin Human Regular 15 unit/ Total Parenteral Nutrition/Amino Acids/Dextrose/ Fat Emulsion Intravenous 1,920 ml @ 80 mls/hr TPN CONT IV Last administered on 10/19/19at 23:05; Start 10/19/19 at 22:00; Stop 10/20/19 at 21:59; Status DC Sodium Chloride 100 meq/Potassium Chloride 30 meq/ Potassium Acetate 30 m eq/Magnesium Sulfate 12 meq/ Multivitamins 10 ml/Chromium/ Copper/Manganese/ Seleni/Zn 1 ml/ Insulin Human Regular 15 unit/ Total Parenteral Nutrition/Amino Acids/Dextrose/ Fat Emulsion Intravenous 1,920 ml @ 80 mls/hr TPN CONT IV Last administered on 10/20/19at 21:52; Start 10/20/19 at 22:00; Stop 10/21/19 at 21:59; Status DC Sodium Chloride 100 meq/Potassium Chloride 30 meq/ Potassium Acetate 30 meq/Magnesium Sulfate 12 meq/ Multivitamins 10 ml/Chromium/ Copper/Manganese/ Seleni/Zn 1 ml/ Insulin Human Regular 15 unit/ Total Parenteral Nutrition/Amino Acids/Dextrose/ Fat Emulsion Intravenous 1,920 ml @ 80 mls/hr TPN CONT IV Last administered on 10/21/19at 21:46; Start 10/21/19 at 22:00; Stop 10/22/19 at 21:59; Status DC Sodium Chloride 100 meq/Potassium Chloride 30 meq/ Potassium Acetate 30 meq/Magnesium Sulfate 12 meq/ Multivitamins 10 ml/Chromium/ Copper/Manganese/ Seleni/Zn 1 ml/ Insulin Human Regular 15 unit/ Total Parenteral Nutrition/Amino Acids/Dextrose/ Fat Emulsion Intravenous 1,800 ml @ 75 mls/hr TPN CONT IV Last administered on 10/22/19at 22:04; Start 10/22/19 at 22:00; Stop 10/23/19 at 21:59; Status DC Fentanyl Citrate 55 ml @ 0 mls/hr CONT PRN IV SEE COMMENTS Last administered on 10/24/19at 23:55; Start 10/22/19 at 13:00; Stop 10/27/19 at 17:28; Status DC Sodium Chloride 100 meq/Potassium Chloride 30 meq/ Potassium Acetate 30 meq/Magnesium Sulfate 12 meq/ Multivitamins 10 ml/Chromium/ Copper/Manganese/ Seleni/Zn 1 ml/ Insulin Human Regular 15 unit/ Total Parenteral Nutrition/Amino Acids/Dextrose/ Fat Emulsion Intravenous 1,680 ml @ 70 mls/hr TPN CONT IV Last administered on 10/23/19at 21:23; Start 10/23/19 at 22:00; Stop 10/24/19 at 21:59; Status DC Sodium Chloride 110 meq/Potassium Chloride 30 meq/ Potassium Acetate 30 meq/Magnesium Sulfate 15 meq/ Multivitamins 10 ml/Chromium/ Copper/Manganese/ Seleni/Zn 1 ml/ Insulin Human Regular 15 unit/ Total Parenteral Nutrition/Amino Acids/Dextrose/ Fat Emulsion Intravenous 1,680 ml @ 70 mls/hr TPN CONT IV Last administered on 10/24/19at 21:48; Start 10/24/19 at 22:00; Stop 10/25/19 at 21:59; Status DC Sodium Chloride 110 meq/Potassium Chloride 30 meq/ Potassium Acetate 30 meq/Magnesium Sulfate 15 meq/ Multivitamins 10 ml/Chromium/ Copper/Manganese/ Seleni/Zn 1 ml/ Insulin Human Regular 15 unit/ Total Parenteral Nutrition/Amino Acids/Dextrose/ Fat Emulsion Intravenous 1,680 ml @ 70 mls/hr TPN CONT IV Last administered on 10/25/19at 21:33; Start 10/25/19 at 22:00; Stop 10/26/19 at 21:59; Status DC Sodium Chloride 110 meq/Potassium Chloride 30 meq/ Potassium Acetate 30 meq/Magnesium Sulfate 15 meq/ Multivitamins 10 ml/Chromium/ Copper/Manganese/ Seleni/Zn 1 ml/ Insulin Human Regular 15 unit/ Total Parenteral Nutrition/Amino Acids/Dextrose/ Fat Emulsion Intravenous 1,680 ml @ 70 mls/hr TPN CONT IV Last administered on 10/26/19at 21:51; Start 10/26/19 at 22:00; Stop 10/27/19 at 21:59; Status DC Sodium Chloride 90 meq/Potassium Chloride 30 meq/ Potassium Acetate 30 meq/Magnesium Sulfate 15 meq/ Multivitamins 10 ml/Chromium/ Copper/Manganese/ Seleni/Zn 1 ml/ Insulin Human Regular 15 unit/ Total Parenteral Nutrition/Amino Acids/Dextrose/ Fat Emulsion Intravenous 1,680 ml @ 70 mls/hr TPN CONT IV Last administered on 10/27/19at 22:38; Start 10/27/19 at 22:00; Stop 10/28/19 at 21:59; Status DC Fentanyl Citrate 30 ml @ 0 mls/hr CONT PRN IV SEE I/O RECORD; Start 10/27/19 at 17:30 Fentanyl (Duragesic 12mcg/ Hr Patch) 1 patch Q3DAYS TD Last administered on 10/31/19at 10:01; Start 10/28/19 at 09:00 Sodium Chloride 90 meq/Potassium Chloride 30 meq/ Potassium Acetate 30 meq/Magnesium Sulfate 15 meq/ Multivitamins 10 ml/Chromium/ Copper/Manganese/ Seleni/Zn 1 ml/ Insulin Human Regular 15 unit/ Total Parenteral Nutrition/Amino Acids/Dextrose/ Fat Emulsion Intravenous 1,680 ml @ 70 mls/hr TPN CONT IV Last administered on 10/28/19at 21:59; Start 10/28/19 at 22:00; Stop 10/29/19 at 21:59; Status DC Sodium Chloride 90 meq/Potassium Chloride 30 meq/ Potassium Acetate 30 meq/Magnesium Sulfate 15 meq/ Multivitamins 10 ml/Chromium/ Copper/Manganese/ Seleni/Zn 1 ml/ Insulin Human Regular 15 unit/ Total Parenteral Nutrition/Amino Acids/Dextrose/ Fat Emulsion Intravenous 1,680 ml @ 70 mls/hr TPN CONT IV Last administered on 10/29/19at 21:35; Start 10/29/19 at 22:00; Stop 10/30/19 at 21:59; Status DC Vancomycin HCl (Vanco Per Pharmacy) 1 each PRN DAILY PRN MC SEE COMMENTS Last administered on 11/01/19at 02:46; Start 10/30/19 at 09:15; Stop 11/02/19 at 07:41; Status DC Ciprofloxacin/ Dextrose 200 ml @ 200 mls/hr Q12HR IV Last administered on 11/02/19at 08:58; Start 10/30/19 at 10:00 Vancomycin HCl 2 gm/Sodium Chloride 500 ml @ 250 mls/hr 1X ONCE IV Last administered on 10/30/19at 10:34; Start 10/30/19 at 10:00; Stop 10/30/19 at 11:59; Status DC Sodium Chloride 90 meq/Potassium Chloride 30 meq/ Potassium Acetate 30 meq/Magnesium Sulfate 15 meq/ Multivitamins 10 ml/Chromium/ Copper/Manganese/ Seleni/Zn 1 ml/ Insulin Human Regular 15 unit/ Total Parenteral Nutrition/Amino Acids/Dextrose/ Fat Emulsion Intravenous 1,680 ml @ 70 mls/hr TPN CONT IV Last administered on 10/30/19at 22:02; Start 10/30/19 at 22:00; Stop 10/31/19 at 21:59; Status DC Diphenhydramine HCl (Benadryl) 25 mg 1X ONCE IVP Last administered on at 14:26; Start 10/30/19 at 14:30; Stop 10/30/19 at 14:31; Status DC Vancomycin HCl 1.5 gm/Sodium Chloride 500 ml @ 250 mls/hr Q8H IV Last administered on 10/31/19at 03:08; Start 10/30/19 at 18:30; Stop 10/31/19 at 12:24; Status DC Vancomycin HCl (Vancomycin Trough Level) 1 each 1X ONCE MC Last administered on 10/31/19at 10:00; Start 10/31/19 at 10:00; Stop 10/31/19 at 10:01; Status DC Sodium Chloride 90 meq/Potassium Chloride 30 meq/ Potassium Acetate 30 meq/Magnesium Sulfate 15 meq/ Multivitamins 10 ml/Chromium/ Copper/Manganese/ Seleni/Zn 1 ml/ Insulin Human Regular 15 unit/ Total Parenteral Nutrition/Amino Acids/Dextrose/ Fat Emulsion Intravenous 1,680 ml @ 70 mls/hr TPN CONT IV Last administered on 10/31/19at 22:13; Start 10/31/19 at 22:00; Stop 11/01/19 at 21:59; Status DC Vancomycin HCl (Vancomycin Random Level) 1 each 1X ONCE MC Last administered on 11/01/19at 01:00; Start 11/01/19 at 01:00; Stop 11/01/19 at 01:01; Status DC Vancomycin HCl 1.5 gm/Sodium Chloride 500 ml @ 250 mls/hr Q12H IV Last administered on 11/01/19at 22:07; Start 11/01/19 at 10:00; Stop 11/02/19 at 07:41; Status DC Vancomycin HCl (Vancomycin Trough Level) 1 each 1X ONCE MC ; Start 11/02/19 at 09:30; Stop 11/02/19 at 09:31; Status Cancel Sodium Chloride 90 meq/Potassium Chloride 30 meq/ Potassium Acetate 30 meq/Magnesium Sulfate 15 meq/ Multivitamins 10 ml/Chromium/ Copper/Manganese/ Seleni/Zn 1 ml/ Insulin Human Regular 15 unit/ Total Parenteral Nutrition/Amino Acids/Dextrose/ Fat Emulsion Intravenous 1,680 ml @ 70 mls/hr TPN CONT IV Last administered on 7/14/20at 22:08; Start 11/01/19 at 22:00; Stop 11/02/19 at 21:59 Alteplase, Recombinant (Cathflo For Central Catheter Clearance) 1 mg 1X ONCE INT CAT Last administered on 11/01/19at 11:49; Start 11/01/19 at 11:00; Stop 11/01/19 at 11:01; Status DC Daptomycin 500 mg/ Sodium Chloride 50 ml @ 100 mls/hr Q24H IV Last administered on 11/02/19at 08:59; Start 11/02/19 at 09:00 Sodium Chloride 90 meq/Potassium Chloride 30 meq/ Potassium Acetate 30 meq/Magnesium Sulfate 15 meq/ Multivitamins 10 ml/Chromium/ Copper/Manganese/ Seleni/Zn 1 ml/ Insulin Human Regular 15 unit/ Total Parenteral Nutrition/Amino Acids/Dextrose/ Fat Emulsion Intravenous 1,680 ml @ 70 mls/hr TPN CONT IV ; Start 11/02/19 at 22:00; Stop 11/03/19 at 21:59 Active Scripts Active Reported Bisoprolol Fumarate 5 Mg Tablet 10 Mg PO DAILY Vitals/I & O Vital Sign - Last 24 Hours 11/01/19 11/01/19 11/01/19 11/01/19 13:50 14:00 15:00 16:00 Pulse 128 128 Resp 35 33 34 B/P (MAP) 138/83 (101) 132/75 (94) Pulse Ox 99 100 99 O2 Delivery Tracheal Collar Tracheal Collar Tracheal Collar Trach Collar O2 Flow Rate 8.0 8.0 8.0 8.0 11/01/19 11/01/19 11/01/19 11/01/19 16:00 16:14 17:00 18:00 Temp 101.5 101.5 Pulse 126 130 125 Resp 30 36 34 B/P (MAP) 127/76 (93) 140/80 (100) 141/83 (102) Pulse Ox 100 100 100 99 O2 Delivery Tracheal Collar Tracheal Collar Tracheal Collar Tracheal Collar O2 Flow Rate 8.0 8.0 8.0 8.0 11/01/19 11/01/19 11/01/19 11/01/19 19:00 19:30 19:35 20:00 Temp 99.5 99.5 Pulse 122 120 Resp 32 33 B/P (MAP) 116/62 (80) 121/68 (85) Pulse Ox 98 100 100 100 O2 Delivery Tracheal Collar Tracheal Collar Tracheal Collar Tracheal Collar O2 Flow Rate 8.0 8.0 8.0 8.0 11/01/19 11/01/19 11/01/19 11/01/19 20:00 21:00 22:00 23:00 Pulse 118 114 111 Resp 37 32 25 B/P (MAP) 119/73 (88) 124/71 (88) 134/83 (100) Pulse Ox 96 99 100 O2 Delivery Trach Collar Tracheal Collar Tracheal Collar Tracheal Collar O2 Flow Rate 8.0 8.0 8.0 8.0 11/01/19 11/02/19 11/02/19 11/02/19 23:20 00:00 00:00 01:00 Temp 98.8 98.8 Pulse 119 126 Resp 24 26 B/P (MAP) 131/83 (99) 139/83 (101) Pulse Ox 100 100 98 O2 Delivery Tracheal Collar Tracheal Collar Trach Collar Tracheal Collar O2 Flow Rate 8.0 8.0 8.0 8.0 11/02/19 11/02/19 11/02/19 11/02/19 02:00 03:00 03:38 04:00 Temp 100.8 100.8 Pulse 121 121 127 Resp 28 28 30 B/P (MAP) 128/87 (101) 141/84 (103) 151/81 (104) Pulse Ox 100 100 100 93 O2 Delivery Tracheal Collar Tracheal Collar Tracheal Collar Tracheal Collar O2 Flow Rate 8.0 8.0 8.0 8.0 11/02/19 11/02/19 11/02/19 11/02/19 04:00 05:00 06:00 07:19 Pulse 128 125 Resp 28 31 B/P (MAP) 133/73 (93) 141/81 (101) Pulse Ox 100 100 100 O2 Delivery Trach Collar Tracheal Collar Tracheal Collar Tracheal Collar O2 Flow Rate 8.0 8.0 8.0 8.0 11/02/19 11/02/19 11/02/19 08:00 11:55 12:00 Pulse Ox 100 O2 Delivery Trach Collar Tracheal Collar Trach Collar O2 Flow Rate 8.0 8.0 8.0 Intake and Output 11/01/19 11/01/19 11/02/19 15:00 23:00 07:00 Intake Total 1823.8 ml 379.4 ml 1476 ml Output Total 640 ml 1468 ml 2130 ml Balance 1183.8 ml -1088.6 ml -654 ml Justicifation of Admission Dx: Justifications for Admission: Justification of Admission Dx: Yes ROSS DIAS MD Nov 02, 2019 13:52
[2019-11-02] MEDS: ENOXAPARIN 40 MG/0.4 ML SYRINGE. SQ SCH (14:22)
[2019-11-02] MEDS: IV NORMAL SALINE 1000ML BAG 1,000 ML IV SCH (14:23)
--- NOTE | 2019-11-02 15:10 | NUR ---
SS following up with discharge planning. SS reviewed pt chart and discussed with pt RN. Pt is currently on trach collar and TPN. Pt on IV Cipro, Daptomycin, Micafungin, and Meropenem. Pt has J tube and chest tube and all drains remain. Pt had temp today. Repeat blood cultures pending. Pt is dependent with PT/OT and now up in chair. SS will continue to follow for discharge planning.
--- NOTE | 2019-11-02 17:48 | NUR ---
Wound Care Assisted [facility] Incisional wound vac changed over the midline abdomen, parrish drain in place with scant drainage at distal opening of incision. Incision line well approximated and mostly epithelialized. Periwound draped, contact layer placed over incision line with silver foam at -125 mmHg continuous suction. All drain dressings removed, cleaned with chloroprep and new split gauze sponges reapplied and taped, pt tolerated dressing changes well. Spoke with REY Ayala re: RLQ drain site oozing purulent drainage, Lucy stated Dr. Neri was aware. REY Ayala and Radha, at bedside to reposition and change sheets, no wounds noted. WC will continue to follow for vac management.
[2019-11-02] MEDS: fentaNYL PF VIAL 100 MCG/2 ML VIAL IV PRN (19:53)
[2019-11-02] MEDS ORDERED: TOTAL PARENTERAL NUTRITION IV SCH ×10 (22:00)
[2019-11-02] MEDS ORDERED: DEXTROSE 70% IV SCH ×10 (22:00)
[2019-11-02] MEDS ORDERED: [UNRECOGNIZED DRUG - OTHER] IV SCH ×10 (22:00)
[2019-11-02] MEDS ORDERED: AMINO ACID IV SCH ×10 (22:00)
[2019-11-03] VITALS (23 sets, daily range): BP systolic 132–175; BP diastolic 50–108
[2019-11-03] MEDS: IPRATRPIUM/ALBUTEROL 0.5/2.5MG 3 ML NEBU. NEB SCH ×6 (00:03→19:54)
[2019-11-03] MEDS: MEROPENEM 500 MG in IV NORMAL SALINE 50ML 50 ML IV SCH ×4 (00:17→17:29)
[2019-11-03] MEDS: ONDANSETRON PF 4 MG/2 ML VIAL. IV PRN ×2 (04:40→08:18)
[2019-11-03] MEDS: INSULIN LISPRO 300 UNITS/3 ML VIAL. SQ SCH ×4 (06:00→17:28)
[2019-11-03 06:40] LABS: CALCIUM 8.7 mg/dL (8.5-10.1); CREATININE 0.6 mg/dL (0.6-1.0); GFR 106.3; POTASSIUM 3.9 mmol/L (3.5-5.1)
[2019-11-03 06:49] LABS: BASO % 0 % (0-3); EOS # 0.3 x10^3/uL (0.0-0.7); EOS % 4 % (0-3); HEMATOCRIT 22.6 % (36.0-47.0); HEMOGLOBIN 7.4 g/dL (12.0-15.5); LYMPH # 1.2 x10^3/uL (1.0-4.8); LYMPH % 14 % (24-48); MEAN CORPUSCULAR HEMOGLOBIN 29 pg (25-35); MEAN CORPUSCULAR HGB CONC 33 g/dL (31-37); MEAN CORPUSCULAR VOLUME 87 fL (79-100); MONO # 1.2 x10^3/uL (0.0-1.1); MONO % 14 % (0-9); NEUT # 5.8 x10^3/uL (1.8-7.7); NEUT % 68 % (31-73); PLATELET COUNT 580 x10^3/uL (140-400); RED BLOOD COUNT 2.61 x10^6/uL (3.50-5.40); RED CELL DISTRIBUTION WIDTH 15.1 % (11.5-14.5); WHITE BLOOD COUNT 8.5 x10^3/uL (4.0-11.0)
[2019-11-03] MEDS: ACETYLCYSTEINE 20% for RESP TX 600 MG/3 ML. NEB SCH ×2 (07:52→19:54)
--- NOTE | 2019-11-03 07:55 | PDOC ---
Infectious Disease Note Subjective Subjective Patient is awake , off ventilator ROS ROS no n/v/d/fever Vital Sign Vital Signs Vital Signs Date Time Temp Pulse Resp B/P (MAP) Pulse Ox O2 Delivery O2 Flow Rate FiO2 11/03/19 06:00 120 36 173/89 (117) 96 Tracheal Collar 11/03/19 04:00 98.5 98.5 11/03/19 04:00 8.0 Physical Exam PHYSICAL EXAM GENERAL: Propped up in bed, awake, weak appearing HEENT: Pupils equal, oral cavity dry. NGT out, on vent NECK: Tracheostomy LUNGS: Diminished aeration bases, CT on left HEART: S1, S2, regular, tachy ABDOMEN: Sightly less distended, bowel sounds hypoactive, soft, goyal x 2, 3 KAYLIN drains, G-J tube and + wound vac : Lind in place EXTREMITIES: Generalized edema, no cyanosis. SCDs & Podus boots bilaterally, SKIN: warm touch. No signs of rash. NEURO: awake, mouthing some words, tracking LUE-PICC without signs of complications LUE art-line out, mottling about old art-line site is improving. RP palpable, cap refill brisk. Labs Lab Laboratory Tests Test 11/02/19 18:41 11/03/19 00:12 11/03/19 06:15 Glucose (Fingerstick) 141 mg/dL (70-99) 125 mg/dL (70-99) 141 mg/dL (70-99) White Blood Count 8.5 x10^3/uL (4.0-11.0) Red Blood Count 2.61 x10^6/uL (3.50-5.40) Hemoglobin 7.4 g/dL (12.0-15.5) Hematocrit 22.6 % (36.0-47.0) Mean Corpuscular Volume 87 fL (79-100) Mean Corpuscular Hemoglobin 29 pg (25-35) Mean Corpuscular Hemoglobin Concent 33 g/dL (31-37) Red Cell Distribution Width 15.1 % (11.5-14.5) Platelet Count 580 x10^3/uL (140-400) Neutrophils (%) (Auto) 68 % (31-73) Lymphocytes (%) (Auto) 14 % (24-48) Monocytes (%) (Auto) 14 % (0-9) Eosinophils (%) (Auto) 4 % (0-3) Basophils (%) (Auto) 0 % (0-3) Neutrophils # (Auto) 5.8 x10^3/uL (1.8-7.7) Lymphocytes # (Auto) 1.2 x10^3/uL (1.0-4.8) Monocytes # (Auto) 1.2 x10^3/uL (0.0-1.1) Eosinophils # (Auto) 0.3 x10^3/uL (0.0-0.7) Basophils # (Auto) 0.0 x10^3/uL (0.0-0.2) Sodium Level 136 mmol/L (136-145) Potassium Level 3.9 mmol/L (3.5-5.1) Chloride Level 103 mmol/L (98-107) Carbon Dioxide Level 29 mmol/L (21-32) Anion Gap 4 (6-14) Blood Urea Nitrogen 10 mg/dL (7-20) Creatinine 0.6 mg/dL (0.6-1.0) Estimated GFR (Cockcroft-Gault) 106.3 Glucose Level 153 mg/dL (70-99) Calcium Level 8.7 mg/dL (8.5-10.1) Micro Objective Assessment Patient with prolonged hospitalization more than 3 months Multiple medical problems Multiple surgical procedures S/P Exp. 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 parapsilosis & PSAE (I-merrem/ceftazidime/AZT/cefepime)) Leucocytosis -trending upward Fever Acute gallstone pancreatitis with persistent necrosis - 07/27. CT A/P Increased ascites. 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 status post KAYLIN drain placement; C. parapsilosis. s/p drain 08/23 + yeast & high amylase; s/p additional drain on 08/25. Drains removed. -08/23. fluid devyn parapsilosis fluid, amylase high - 09/23 showed multiple pseudocysts, slight larger on the right. s/p drains x 3, 09/24. + PSAE (MDRO-R Cefepime, Zosyn ALEXANDRA < 64) and yeast, -09/24 s/p drain replacement x 3; fluid cult PSAE (MDRO), yeast; treated -10/29 CT A/P shows smaller fluid collections. Ascites s/p paracentesis 08/02 & 08/23. C. parapsilosis Cholelithiasis with thickening of the gallbladder wall. JUANA, Hyperkalemia, Metabolic acidosis off dialysis Acute hypoxic resp failure. trach/vent. sputum 09/30 + PSAE (I merrem) Pleural effusions s/p left thoracentesis, 08/29. no culture. s/p left chest tube, 10/02 no growth Hypocalcemia Prediabetes HTN Anemia s/p PRBCs Plan Plan of Care Meropenem, cipro , micafungin and dapto repeat bc Labs in am wound care /drain management as directed Contact isolation for CRE/MDRO D/w nursing Critically ill alf prognosis poor KIMMY JONES MD Nov 03, 2019 07:55
[2019-11-03] MEDS: ENOXAPARIN 40 MG/0.4 ML SYRINGE. SQ SCH (08:18)
[2019-11-03] MEDS: PANTOPRAZOLE IV PUSH 40 MG VIAL. IVP SCH (08:18)
[2019-11-03] MEDS: MICAFUNGIN 100 MG in IV DEXTROSE 5% 100ML 100 ML IV SCH (08:19)
[2019-11-03] MEDS: fentaNYL PF VIAL 100 MCG/2 ML VIAL IV PRN ×2 (08:21→19:20)
[2019-11-03] MEDS: fentaNYL 12MCG/HR PATCH 1 PATCH PATCH.TD72 TD SCH (08:27)
--- NOTE | 2019-11-03 09:51 | PDOC ---
SURGICAL PROGRESS NOTE Subjective awake Vital Signs Vital Signs Date Time Temp Pulse Resp B/P (MAP) Pulse Ox O2 Delivery O2 Flow Rate FiO2 11/03/19 09:00 120 30 151/80 (103) 96 Tracheal Collar 11/03/19 08:51 8.0 11/03/19 08:00 99.0 99.0 I&O Intake and Output 11/03/19 07:00 Intake Total 2669 ml Output Total 4660 ml Balance -1991 ml IV Total 2669 ml Output Urine Total 2590 ml Chest Tube Drainage Total 80 ml Drainage Total 1990 ml PATIENT HAS A ROSARIO: Yes General: Cooperative, No acute distress HEENT: Other (trach) Abdomen: Soft, Other (multiple drains) Labs Laboratory Tests Test 11/01/19 12:34 11/01/19 17:49 11/02/19 00:06 11/02/19 05:52 Glucose (Fingerstick) 148 mg/dL (70-99) 122 mg/dL (70-99) 119 mg/dL (70-99) 116 mg/dL (70-99) Test 11/02/19 06:00 11/02/19 18:41 11/03/19 00:12 11/03/19 06:15 White Blood Count 10.1 x10^3/uL (4.0-11.0) 8.5 x10^3/uL (4.0-11.0) Red Blood Count 2.44 x10^6/uL (3.50-5.40) 2.61 x10^6/uL (3.50-5.40) Hemoglobin 7.0 g/dL (12.0-15.5) 7.4 g/dL (12.0-15.5) Hematocrit 21.2 % (36.0-47.0) 22.6 % (36.0-47.0) Mean Corpuscular Volume 87 fL (79-100) 87 fL (79-100) Mean Corpuscular Hemoglobin 29 pg (25-35) 29 pg (25-35) Mean Corpuscular Hemoglobin Concent 33 g/dL (31-37) 33 g/dL (31-37) Red Cell Distribution Width 14.8 % (11.5-14.5) 15.1 % (11.5-14.5) Platelet Count 551 x10^3/uL (140-400) 580 x10^3/uL (140-400) Neutrophils (%) (Auto) 77 % (31-73) 68 % (31-73) Lymphocytes (%) (Auto) 10 % (24-48) 14 % (24-48) Monocytes (%) (Auto) 10 % (0-9) 14 % (0-9) Eosinophils (%) (Auto) 3 % (0-3) 4 % (0-3) Basophils (%) (Auto) 0 % (0-3) 0 % (0-3) Neutrophils # (Auto) 7.8 x10^3/uL (1.8-7.7) 5.8 x10^3/uL (1.8-7.7) Lymphocytes # (Auto) 1.0 x10^3/uL (1.0-4.8) 1.2 x10^3/uL (1.0-4.8) Monocytes # (Auto) 1.0 x10^3/uL (0.0-1.1) 1.2 x10^3/uL (0.0-1.1) Eosinophils # (Auto) 0.3 x10^3/uL (0.0-0.7) 0.3 x10^3/uL (0.0-0.7) Basophils # (Auto) 0.0 x10^3/uL (0.0-0.2) 0.0 x10^3/uL (0.0-0.2) Sodium Level 135 mmol/L (136-145) 136 mmol/L (136-145) Potassium Level 4.1 mmol/L (3.5-5.1) 3.9 mmol/L (3.5-5.1) Chloride Level 102 mmol/L (98-107) 103 mmol/L (98-107) Carbon Dioxide Level 30 mmol/L (21-32) 29 mmol/L (21-32) Anion Gap 3 (6-14) 4 (6-14) Blood Urea Nitrogen 9 mg/dL (7-20) 10 mg/dL (7-20) Creatinine 0.5 mg/dL (0.6-1.0) 0.6 mg/dL (0.6-1.0) Estimated GFR (Cockcroft-Gault) 131.1 106.3 Glucose Level 126 mg/dL (70-99) 153 mg/dL (70-99) Calcium Level 8.7 mg/dL (8.5-10.1) 8.7 mg/dL (8.5-10.1) Glucose (Fingerstick) 141 mg/dL (70-99) 125 mg/dL (70-99) 141 mg/dL (70-99) Laboratory Tests Test 11/02/19 18:41 11/03/19 00:12 11/03/19 06:15 Glucose (Fingerstick) 141 mg/dL (70-99) 125 mg/dL (70-99) 141 mg/dL (70-99) White Blood Count 8.5 x10^3/uL (4.0-11.0) Red Blood Count 2.61 x10^6/uL (3.50-5.40) Hemoglobin 7.4 g/dL (12.0-15.5) Hematocrit 22.6 % (36.0-47.0) Mean Corpuscular Volume 87 fL (79-100) Mean Corpuscular Hemoglobin 29 pg (25-35) Mean Corpuscular Hemoglobin Concent 33 g/dL (31-37) Red Cell Distribution Width 15.1 % (11.5-14.5) Platelet Count 580 x10^3/uL (140-400) Neutrophils (%) (Auto) 68 % (31-73) Lymphocytes (%) (Auto) 14 % (24-48) Monocytes (%) (Auto) 14 % (0-9) Eosinophils (%) (Auto) 4 % (0-3) Basophils (%) (Auto) 0 % (0-3) Neutrophils # (Auto) 5.8 x10^3/uL (1.8-7.7) Lymphocytes # (Auto) 1.2 x10^3/uL (1.0-4.8) Monocytes # (Auto) 1.2 x10^3/uL (0.0-1.1) Eosinophils # (Auto) 0.3 x10^3/uL (0.0-0.7) Basophils # (Auto) 0.0 x10^3/uL (0.0-0.2) Sodium Level 136 mmol/L (136-145) Potassium Level 3.9 mmol/L (3.5-5.1) Chloride Level 103 mmol/L (98-107) Carbon Dioxide Level 29 mmol/L (21-32) Anion Gap 4 (6-14) Blood Urea Nitrogen 10 mg/dL (7-20) Creatinine 0.6 mg/dL (0.6-1.0) Estimated GFR (Cockcroft-Gault) 106.3 Glucose Level 153 mg/dL (70-99) Calcium Level 8.7 mg/dL (8.5-10.1) Problem List Problems Medical Problems: (1) Acute pancreatitis Status: Acute (2) Cholelithiasis Status: Acute Assessment/Plan supportive care RLQ drain with purulent drainage yesterday --will review with DR Servin Justicifation of Admission Dx: Justifications for Admission: Justification of Admission Dx: Yes 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 APRN Nov 03, 2019 09:51
--- NOTE | 2019-11-03 10:24 | PDOC ---
PULMONARY PROGRESS NOTES Subjective Nothing new today patient with no significant respiratory distress currently on trach shield Vitals Vital Signs Date Time Temp Pulse Resp B/P (MAP) Pulse Ox O2 Delivery O2 Flow Rate FiO2 11/03/19 09:00 120 30 151/80 (103) 96 Tracheal Collar 11/03/19 08:51 8.0 11/03/19 08:00 99.0 99.0 ROS: No Nausea, No Chest Pain, No Increase Cough General: Alert HEENT: Other (trach site ok) Lungs: Crackles Cardiovascular: S1, S2 Abdomen: Soft, Non-tender, Other (multiple KAYLIN drains ) Neuro Exam: Alert Extremities: Other (+1 BLE edema) Skin: Warm Labs Laboratory Tests Test 11/01/19 12:34 11/01/19 17:49 11/02/19 00:06 11/02/19 05:52 Glucose (Fingerstick) 148 mg/dL (70-99) 122 mg/dL (70-99) 119 mg/dL (70-99) 116 mg/dL (70-99) Test 11/02/19 06:00 11/02/19 18:41 11/03/19 00:12 11/03/19 06:15 White Blood Count 10.1 x10^3/uL (4.0-11.0) 8.5 x10^3/uL (4.0-11.0) Red Blood Count 2.44 x10^6/uL (3.50-5.40) 2.61 x10^6/uL (3.50-5.40) Hemoglobin 7.0 g/dL (12.0-15.5) 7.4 g/dL (12.0-15.5) Hematocrit 21.2 % (36.0-47.0) 22.6 % (36.0-47.0) Mean Corpuscular Volume 87 fL (79-100) 87 fL (79-100) Mean Corpuscular Hemoglobin 29 pg (25-35) 29 pg (25-35) Mean Corpuscular Hemoglobin Concent 33 g/dL (31-37) 33 g/dL (31-37) Red Cell Distribution Width 14.8 % (11.5-14.5) 15.1 % (11.5-14.5) Platelet Count 551 x10^3/uL (140-400) 580 x10^3/uL (140-400) Neutrophils (%) (Auto) 77 % (31-73) 68 % (31-73) Lymphocytes (%) (Auto) 10 % (24-48) 14 % (24-48) Monocytes (%) (Auto) 10 % (0-9) 14 % (0-9) Eosinophils (%) (Auto) 3 % (0-3) 4 % (0-3) Basophils (%) (Auto) 0 % (0-3) 0 % (0-3) Neutrophils # (Auto) 7.8 x10^3/uL (1.8-7.7) 5.8 x10^3/uL (1.8-7.7) Lymphocytes # (Auto) 1.0 x10^3/uL (1.0-4.8) 1.2 x10^3/uL (1.0-4.8) Monocytes # (Auto) 1.0 x10^3/uL (0.0-1.1) 1.2 x10^3/uL (0.0-1.1) Eosinophils # (Auto) 0.3 x10^3/uL (0.0-0.7) 0.3 x10^3/uL (0.0-0.7) Basophils # (Auto) 0.0 x10^3/uL (0.0-0.2) 0.0 x10^3/uL (0.0-0.2) Sodium Level 135 mmol/L (136-145) 136 mmol/L (136-145) Potassium Level 4.1 mmol/L (3.5-5.1) 3.9 mmol/L (3.5-5.1) Chloride Level 102 mmol/L (98-107) 103 mmol/L (98-107) Carbon Dioxide Level 30 mmol/L (21-32) 29 mmol/L (21-32) Anion Gap 3 (6-14) 4 (6-14) Blood Urea Nitrogen 9 mg/dL (7-20) 10 mg/dL (7-20) Creatinine 0.5 mg/dL (0.6-1.0) 0.6 mg/dL (0.6-1.0) Estimated GFR (Cockcroft-Gault) 131.1 106.3 Glucose Level 126 mg/dL (70-99) 153 mg/dL (70-99) Calcium Level 8.7 mg/dL (8.5-10.1) 8.7 mg/dL (8.5-10.1) Glucose (Fingerstick) 141 mg/dL (70-99) 125 mg/dL (70-99) 141 mg/dL (70-99) Laboratory Tests Test 11/02/19 18:41 11/03/19 00:12 11/03/19 06:15 Glucose (Fingerstick) 141 mg/dL (70-99) 125 mg/dL (70-99) 141 mg/dL (70-99) White Blood Count 8.5 x10^3/uL (4.0-11.0) Red Blood Count 2.61 x10^6/uL (3.50-5.40) Hemoglobin 7.4 g/dL (12.0-15.5) Hematocrit 22.6 % (36.0-47.0) Mean Corpuscular Volume 87 fL (79-100) Mean Corpuscular Hemoglobin 29 pg (25-35) Mean Corpuscular Hemoglobin Concent 33 g/dL (31-37) Red Cell Distribution Width 15.1 % (11.5-14.5) Platelet Count 580 x10^3/uL (140-400) Neutrophils (%) (Auto) 68 % (31-73) Lymphocytes (%) (Auto) 14 % (24-48) Monocytes (%) (Auto) 14 % (0-9) Eosinophils (%) (Auto) 4 % (0-3) Basophils (%) (Auto) 0 % (0-3) Neutrophils # (Auto) 5.8 x10^3/uL (1.8-7.7) Lymphocytes # (Auto) 1.2 x10^3/uL (1.0-4.8) Monocytes # (Auto) 1.2 x10^3/uL (0.0-1.1) Eosinophils # (Auto) 0.3 x10^3/uL (0.0-0.7) Basophils # (Auto) 0.0 x10^3/uL (0.0-0.2) Sodium Level 136 mmol/L (136-145) Potassium Level 3.9 mmol/L (3.5-5.1) Chloride Level 103 mmol/L (98-107) Carbon Dioxide Level 29 mmol/L (21-32) Anion Gap 4 (6-14) Blood Urea Nitrogen 10 mg/dL (7-20) Creatinine 0.6 mg/dL (0.6-1.0) Estimated GFR (Cockcroft-Gault) 106.3 Glucose Level 153 mg/dL (70-99) Calcium Level 8.7 mg/dL (8.5-10.1) Medications Active Scripts Medications Dose Route/Sig Max Daily Dose Days Date Category Bisoprolol Fumarate 5 Mg Tablet 10 Mg PO DAILY 07/04/[address] reviewed 10/30/19, Decreased left-sided effusion after catheter placement. The right-sided effusion has increased as has atelectasis. There has been exchange or placement of multiple drainage tubes and a gastrojejunostomy tube. Both collections are smaller. No significant new abdominal fluid collection is seen. The jejunal component of the gastrojejunostomy tube appears to be looped in the proximal small bowel. ct abdomen /pelvis 09/23 1. Removal of the percutaneous pigtail drainage catheters since the prior exam. Sequela of pancreatitis with extensive pseudocysts again demonstrated, the right-sided collections are slightly larger since the prior exam, the left-sided collections are stable. See above. 2. Moderate to large left pleural effusion with atelectasis and collapse of most of the left lower lobe, stable. Small right pleural effusion is stable. 3. Gallstone. ct chest 10/02 reviewed GRAM NEG COCCOBACILLI:MANY SQUAMOUS EPI CELL:RARE PMN (WBCs):FEW Unless otherwise specified, Testing Performed by: [address] [address] For Inquires, the Physician may contact the Microbiology department at [phone] RESPIRATORY CULTURE Final Final MANY GRAM NEGATIVE RODS on 10/03/19 at 1100 FINAL ID= [PSEUDOMONAS [email or web address]] MICRO CHARGES PSEUDOMONAS AERUGINOSA ANTIMICROBIAL SUSCEPTIBILITY Final Comment NEG ALEXANDRA 56 PSEUDOMONAS AERUGINOSA ANTIBIOTIC RESULT INTERPRETATION AMIKACIN <=16 S AZTREONAM <=4 S CEFTAZIDIME <=1 S CIPROFLOXACIN <=0.25 S CEFEPIME <=2 S CEFTAZIDIME/AVIBACTAM <=4 S GENTAMICIN <=2 S LEVOFLOXACIN <=0.5 S Impression . IMPRESSION: 1. Acute hypoxemic respiratory failure secondary to ARDS status post trach, developed anemia 09/24, blood drainage from RLQ abdomen drain site, and surrounding firmness / developed septic shock 09/24 from abdomen source, required levo 09/24 s/p 3 new drains / with brown color drainage, 2. Gallstone pancreatitis, now with ongoing bleeding from prior drain. Anemic. s/p Tx multiple units over several days 3. septic shock/sepsis, recurrent 09/24, source abdomen. new fever ? aspiration pneumonitis/pneumonia 4. Acute kidney injury-, Off HD--renal function decling. suspect JUANA on CKD due to hypotension , improved now 5. Acute gallstone pancreatitis. 6. Hypoalbuminemia. 7. Moderate persistent effusions, s/p left thora 08/29, reaccumulation of left effusion. O2 requirement not changed. 8. Fever- ,hypotension. suspect recurrent sepsis/ likely pancreatic source. Per ID, per surgery-- 9. Chronic anemia-- ongoing / s/p PRBC 10. Covid 19 testing negative 11. Moderate to large ascites-S/P paracentisis 12.S/P paracentisis with 4 liters removed on 08/03/19 13. S/P IR drain placement on 08/26/2019, removal, re inserted 09/24 14. Depression/Anxiety 15., Fever, per ID 16. Status post chest tube placement, not much drainage 10/17 S/P Exploratory laparotomy, lysis of adhesions, subtotal cholecystectomy with cholangiogram, gastrojejunostomy tube placement, pancreatic necrosectomy leukocytosis- improving Plan . Continue current support, monitor H&H, afebrile today Chest tube drained a bit after Cathflo We will send pleural fluid for analysis, patient now with fever will defer further work-up to ID and surgery Continue trach shield Up to chair Follow culture Follow surgery input DVT GI prophylaxis ABX per ID f/u BC /resp cultures Continue TPN for nutrition support DVT/GI PPX D/W RN and RT, HARMEET BEE MD Nov 03, 2019 10:24
[2019-11-03] MEDS: CIPROFLOXACIN 400MG PREMIX 200 ML IV SCH ×2 (10:38→21:05)
[2019-11-03] MEDS: DAPTOmycin (GENERIC) IVPB 500 MG in IV NORMAL SALINE 50ML 50 ML IV SCH (10:38)
--- NOTE | 2019-11-03 10:41 | PDOC ---
PROGRESS NOTES Chief Complaint Chief Complaint A/P Acute hypoxic Respiratory failure required mechanical ventilation Tracheostomy bilateral pleural effusions/pulm edema s/p Throacentesis on 10/03/2019 Severe Acute gallstone pancreatitis (not a surgical candidate at this time) with necrosis Acute kidney failure now requiring dialysis Gallstones (Calculus of gallbladder with acute cholecystitis without obstruction) HTN Intractable pain Intractable nausea Covid 19 negative. Acute on chronic anemia EEG: No seizure activity Fever - intermittent ? Ileus with vomiting Abd distention - U/S and CT reviewed s/p 0.4 L of opaque, debris-containing ascites was removed 08/23 Acute pancreatitis with persistent necrosis Gallstone pancreatitis with necrosis. -CT A/P 09/23 showed multiple pseudocysts, slight larger on the right. s/p drains x 3, 09/24. + PSAE (MDRO-R Cefepime, Zosyn ALEXANDRA < 64) and yeast, -s/p drain 08/14. C. parapsilosis. s/p drain 08/23 + yeast & high amylase; s/p additional drain on 08/25. Drains removed. Ascites s/p paracentesis 08/02 & 08/23. C. parapsilosis JUANA. off HD. A large fluid collection in the pancreatic bed has slightly decreased in size, described below, the pancreas itself is difficult to visualize, which could be due to necrosis or obscuration of pancreatic parenchyma from the surrounding fluid collection.10/02 - 08/14 status post KAYLIN drain placement + C paropsilosis. s/p additional drains 08/25 Anemia - S/p PRBCs. Cholelithiasis with thickening of the gallbladder wall. Leucocytosis improving JUANA, hyperkalemia, Metabolic acidosis off dialysis hypocalcemia Prediabetes HTN s/p trach Hyperglycemia severe protein-caloric malnutrition Moderate to large left pleural effusion with atelectasis and collapse of most of the left lower lobe, stable Dispo - ICU, critically ill Chest tube drained a bit after Cathflo TPN per nutrition check blood cultures and fluid cultures given fever meropenam, cipro, micafungin per ID Continue trach shield ID, gen sx, GI, pulm following DVT GI prophylaxis Continue TPN for nutrition support critically ill poor prognosis labs q am History of Present Illness History of Present Illness secretions this AM. no fevers overnight Vitals Vitals Vital Signs Date Time Temp Pulse Resp B/P (MAP) Pulse Ox O2 Delivery O2 Flow Rate FiO2 11/03/19 09:00 120 30 151/80 (103) 96 Tracheal Collar 11/03/19 08:51 8.0 11/03/19 08:00 99.0 99.0 Physical Exam Physical Exam GENERAL: Propped up in bed, awake, weak appearing HEENT: Pupils equal, oral cavity dry. NGT out, on vent NECK: Tracheostomy LUNGS: Diminished aeration bases, CT on left HEART: S1, S2, regular, tachy ABDOMEN: Sightly less distended, bowel sounds hypoactive, soft, goyal x 2, 3 KAYLIN drains, G-J tube and + wound vac : Lind in place EXTREMITIES: Generalized edema, no cyanosis. SCDs & Podus boots bilaterally, SKIN: warm touch. No signs of rash. NEURO: awake, mouthing some words, tracking LUE-PICC without signs of complications LUE art-line out, mottling about old art-line site is improving. RP palpable, cap refill brisk. General: Cooperative, No acute distress Heart: Regular rate (SR/ST), Other (distant heart sounds) Lungs: Crackles Abdomen: Soft, Other (multiple drains) Extremities: Other (Diffuse edema) Skin: No rashes, No significant lesion Labs LABS Laboratory Tests Test 11/02/19 18:41 11/03/19 00:12 11/03/19 06:15 Glucose (Fingerstick) 141 mg/dL (70-99) 125 mg/dL (70-99) 141 mg/dL (70-99) White Blood Count 8.5 x10^3/uL (4.0-11.0) Red Blood Count 2.61 x10^6/uL (3.50-5.40) Hemoglobin 7.4 g/dL (12.0-15.5) Hematocrit 22.6 % (36.0-47.0) Mean Corpuscular Volume 87 fL (79-100) Mean Corpuscular Hemoglobin 29 pg (25-35) Mean Corpuscular Hemoglobin Concent 33 g/dL (31-37) Red Cell Distribution Width 15.1 % (11.5-14.5) Platelet Count 580 x10^3/uL (140-400) Neutrophils (%) (Auto) 68 % (31-73) Lymphocytes (%) (Auto) 14 % (24-48) Monocytes (%) (Auto) 14 % (0-9) Eosinophils (%) (Auto) 4 % (0-3) Basophils (%) (Auto) 0 % (0-3) Neutrophils # (Auto) 5.8 x10^3/uL (1.8-7.7) Lymphocytes # (Auto) 1.2 x10^3/uL (1.0-4.8) Monocytes # (Auto) 1.2 x10^3/uL (0.0-1.1) Eosinophils # (Auto) 0.3 x10^3/uL (0.0-0.7) Basophils # (Auto) 0.0 x10^3/uL (0.0-0.2) Sodium Level 136 mmol/L (136-145) Potassium Level 3.9 mmol/L (3.5-5.1) Chloride Level 103 mmol/L (98-107) Carbon Dioxide Level 29 mmol/L (21-32) Anion Gap 4 (6-14) Blood Urea Nitrogen 10 mg/dL (7-20) Creatinine 0.6 mg/dL (0.6-1.0) Estimated GFR (Cockcroft-Gault) 106.3 Glucose Level 153 mg/dL (70-99) Calcium Level 8.7 mg/dL (8.5-10.1) Assessment and Plan Assessmemt and Plan Problems Medical Problems: (1) Acute pancreatitis Status: Acute (2) Cholelithiasis Status: Acute Comment Review of Relevant I have reviewed the following items kolby (where applicable) has been applied. Labs Laboratory Tests Test 11/01/19 12:34 11/01/19 17:49 11/02/19 00:06 11/02/19 05:52 Glucose (Fingerstick) 148 mg/dL (70-99) 122 mg/dL (70-99) 119 mg/dL (70-99) 116 mg/dL (70-99) Test 11/02/19 06:00 11/02/19 18:41 11/03/19 00:12 11/03/19 06:15 White Blood Count 10.1 x10^3/uL (4.0-11.0) 8.5 x10^3/uL (4.0-11.0) Red Blood Count 2.44 x10^6/uL (3.50-5.40) 2.61 x10^6/uL (3.50-5.40) Hemoglobin 7.0 g/dL (12.0-15.5) 7.4 g/dL (12.0-15.5) Hematocrit 21.2 % (36.0-47.0) 22.6 % (36.0-47.0) Mean Corpuscular Volume 87 fL (79-100) 87 fL (79-100) Mean Corpuscular Hemoglobin 29 pg (25-35) 29 pg (25-35) Mean Corpuscular Hemoglobin Concent 33 g/dL (31-37) 33 g/dL (31-37) Red Cell Distribution Width 14.8 % (11.5-14.5) 15.1 % (11.5-14.5) Platelet Count 551 x10^3/uL (140-400) 580 x10^3/uL (140-400) Neutrophils (%) (Auto) 77 % (31-73) 68 % (31-73) Lymphocytes (%) (Auto) 10 % (24-48) 14 % (24-48) Monocytes (%) (Auto) 10 % (0-9) 14 % (0-9) Eosinophils (%) (Auto) 3 % (0-3) 4 % (0-3) Basophils (%) (Auto) 0 % (0-3) 0 % (0-3) Neutrophils # (Auto) 7.8 x10^3/uL (1.8-7.7) 5.8 x10^3/uL (1.8-7.7) Lymphocytes # (Auto) 1.0 x10^3/uL (1.0-4.8) 1.2 x10^3/uL (1.0-4.8) Monocytes # (Auto) 1.0 x10^3/uL (0.0-1.1) 1.2 x10^3/uL (0.0-1.1) Eosinophils # (Auto) 0.3 x10^3/uL (0.0-0.7) 0.3 x10^3/uL (0.0-0.7) Basophils # (Auto) 0.0 x10^3/uL (0.0-0.2) 0.0 x10^3/uL (0.0-0.2) Sodium Level 135 mmol/L (136-145) 136 mmol/L (136-145) Potassium Level 4.1 mmol/L (3.5-5.1) 3.9 mmol/L (3.5-5.1) Chloride Level 102 mmol/L (98-107) 103 mmol/L (98-107) Carbon Dioxide Level 30 mmol/L (21-32) 29 mmol/L (21-32) Anion Gap 3 (6-14) 4 (6-14) Blood Urea Nitrogen 9 mg/dL (7-20) 10 mg/dL (7-20) Creatinine 0.5 mg/dL (0.6-1.0) 0.6 mg/dL (0.6-1.0) Estimated GFR (Cockcroft-Gault) 131.1 106.3 Glucose Level 126 mg/dL (70-99) 153 mg/dL (70-99) Calcium Level 8.7 mg/dL (8.5-10.1) 8.7 mg/dL (8.5-10.1) Glucose (Fingerstick) 141 mg/dL (70-99) 125 mg/dL (70-99) 141 mg/dL (70-99) Laboratory Tests Test 11/02/19 18:41 11/03/19 00:12 11/03/19 06:15 Glucose (Fingerstick) 141 mg/dL (70-99) 125 mg/dL (70-99) 141 mg/dL (70-99) White Blood Count 8.5 x10^3/uL (4.0-11.0) Red Blood Count 2.61 x10^6/uL (3.50-5.40) Hemoglobin 7.4 g/dL (12.0-15.5) Hematocrit 22.6 % (36.0-47.0) Mean Corpuscular Volume 87 fL (79-100) Mean Corpuscular Hemoglobin 29 pg (25-35) Mean Corpuscular Hemoglobin Concent 33 g/dL (31-37) Red Cell Distribution Width 15.1 % (11.5-14.5) Platelet Count 580 x10^3/uL (140-400) Neutrophils (%) (Auto) 68 % (31-73) Lymphocytes (%) (Auto) 14 % (24-48) Monocytes (%) (Auto) 14 % (0-9) Eosinophils (%) (Auto) 4 % (0-3) Basophils (%) (Auto) 0 % (0-3) Neutrophils # (Auto) 5.8 x10^3/uL (1.8-7.7) Lymphocytes # (Auto) 1.2 x10^3/uL (1.0-4.8) Monocytes # (Auto) 1.2 x10^3/uL (0.0-1.1) Eosinophils # (Auto) 0.3 x10^3/uL (0.0-0.7) Basophils # (Auto) 0.0 x10^3/uL (0.0-0.2) Sodium Level 136 mmol/L (136-145) Potassium Level 3.9 mmol/L (3.5-5.1) Chloride Level 103 mmol/L (98-107) Carbon Dioxide Level 29 mmol/L (21-32) Anion Gap 4 (6-14) Blood Urea Nitrogen 10 mg/dL (7-20) Creatinine 0.6 mg/dL (0.6-1.0) Estimated GFR (Cockcroft-Gault) 106.3 Glucose Level 153 mg/dL (70-99) Calcium Level 8.7 mg/dL (8.5-10.1) Microbiology 10/30/19 Gram Stain Evaluation - Final, Complete 10/30/19 Respiratory Culture - Final, Complete 10/30/19 Antimicrobic Susceptibility - Final, Complete 10/30/19 Blood Culture - Preliminary, Resulted NO GROWTH AFTER 4 DAYS 10/18/19 Gram Stain - Final, Complete 10/18/19 Aerobic and Anaerobic Culture - Final, Complete 10/18/19 Antimicrobic Susceptibility - Final, Complete 10/03/19 Gram Stain - Final, Complete 10/03/19 Aerobic and Anaerobic Culture - Final, Complete 09/25/19 Urine Culture - Final, Complete 09/17/19 Gram Stain - Final, Complete 09/17/19 Aerobic Culture - Final, Complete Medications Current Medications Sodium Chloride 1,000 ml @ 1,000 mls/hr Q1H IV Last administered on 07/04/19at 03:00; Start 07/04/19 at 03:00; Stop 07/04/19 at 03:59; Status DC Ondansetron HCl (Zofran) 4 mg 1X ONCE IVP Last administered on 07/04/19at 03:27; Start 07/04/19 at 03:00; Stop 07/04/19 at 03:01; Status DC Morphine Sulfate (Morphine Sulfate) 4 mg 1X ONCE IV ; Start 07/04/19 at 03:00; Stop 07/04/19 at 03:01; Status Cancel Ketorolac Tromethamine (Toradol 30mg Vial) 30 mg 1X ONCE IV Last administered on 07/04/19at 02:54; Start 07/04/19 at 03:00; Stop 07/04/19 at 03:01; Status DC Fentanyl Citrate (Fentanyl 2ml Vial) 25 mcg 1X ONCE IVP Last administered on 07/04/19at 03:23; Start 07/04/19 at 03:30; Stop 07/04/19 at 03:31; Status DC Fentanyl Citrate (Fentanyl 2ml Vial) 100 mcg STK-MED ONCE .ROUTE ; Start 07/04/19 at 03:18; Stop 07/04/19 at 03:18; Status DC Iohexol (Omnipaque 350 Mg/ml) 90 ml 1X ONCE IV Last administered on 07/04/19at 03:25; Start 07/04/19 at 03:30; Stop 07/04/19 at 03:31; Status DC Info (CONTRAST GIVEN -- Rx MONITORING) 1 each PRN DAILY PRN MC SEE COMMENTS; Start 07/04/19 at 03:30; Stop 07/06/19 at 03:29; Status DC Hydromorphone HCl (Dilaudid) 0.5 mg 1X ONCE IV Last administered on 07/04/19at 03:55; Start 07/04/19 at 04:30; Stop 07/04/19 at 04:32; Status DC Ondansetron HCl (Zofran) 4 mg PRN Q8HRS PRN IV NAUSEA/VOMITING 1ST CHOICE; Start 07/04/19 at 05:00; Stop 07/04/19 at 09:27; Status DC Morphine Sulfate (Morphine Sulfate) 2 mg PRN Q2HR PRN IV SEVERE PAIN 7-10 Last administered on 07/05/19at 12:26; Start 07/04/19 at 05:00; Stop 07/05/19 at 14:15; Status DC Sodium Chloride 1,000 ml @ 125 mls/hr Q8H IV Last administered on 07/04/19at 20:56; Start 07/04/19 at 05:00; Stop 07/05/19 at 04:59; Status DC Hydromorphone HCl (Dilaudid) 0.5 mg PRN Q3HRS PRN IV SEVERE PAIN 7-10 Last administered on 07/05/19at 10:06; Start 07/04/19 at 05:00; Stop 07/05/19 at 12:01; Status DC Piperacillin Sod/ Tazobactam Sod 4.5 gm/Sodium Chloride 100 ml @ 200 mls/hr 1X ONCE IV Last administered on 07/04/19at 05:44; Start 07/04/19 at 06:00; Stop 07/04/19 at 06:29; Status DC Ondansetron HCl (Zofran) 4 mg PRN Q4HRS PRN IV NAUSEA/VOMITING 1ST CHOICE Last administered on 11/03/19at 08:18; Start 07/04/19 at 09:30 Insulin Human Lispro (HumaLOG) 0-9 UNITS Q6HRS SQ Last administered on 10/30/19at 12:43; Start 07/04/19 at 09:30 Dextrose (Dextrose 50%-Water Syringe) 12.5 gm PRN Q15MIN PRN IV SEE COMMENTS; Start 07/04/19 at 09:30 Pantoprazole Sodium (PROTONIX VIAL for IV PUSH) 40 mg DAILYAC IVP Last administered on 11/03/19at 08:18; Start 07/04/19 at 11:30 Prochlorperazine Edisylate (Compazine) 10 mg PRN Q6HRS PRN IV NAUSEA/VOMITING, 2nd CHOICE Last administered on 10/31/19at 20:17; Start 07/04/19 at 17:45 Atenolol (Tenormin) 100 mg DAILY PO ; Start 07/05/19 at 09:00; Stop 07/04/19 at 20:08; Status DC Metoprolol Tartrate (Lopressor Vial) 2.5 mg Q6HRS IVP Last administered on 07/05/19at 05:51; Start 07/04/19 at 20:15; Stop 07/05/19 at 10:02; Status DC Metoprolol Tartrate (Lopressor Vial) 5 mg Q6HRS IVP Last administered on 07/14/19at 00:12; Start 07/05/19 at 10:15; Stop 07/16/19 at 08:48; Status DC Hydromorphone HCl (Dilaudid) 1 mg PRN Q3HRS PRN IV SEVERE PAIN 7-10 Last administered on 07/11/19at 05:13; Start 07/05/19 at 12:00; Stop 07/19/19 at 00:25; Status DC Lidocaine HCl (Buffered Lidocaine 1%) 3 ml STK-MED ONCE .ROUTE ; Start 07/05/19 at 12:55; Stop 07/05/19 at 12:56; Status DC Albumin Human 500 ml @ 125 mls/hr 1X ONCE IV Last administered on 07/05/19at 14:33; Start 07/05/19 at 14:30; Stop 07/05/19 at 18:32; Status DC Norepinephrine Bitartrate 8 mg/ Dextrose 258 ml @ 17.299 mls/ hr CONT PRN IV PER PROTOCOL Last administered on 08/02/19at 12:48; Start 07/05/19 at 15:30; Stop 08/05/19 at 09:19; Status DC Sodium Chloride 1,000 ml @ 125 mls/hr Q8H IV Last administered on 07/05/19at 21:04; Start 07/05/19 at 16:00; Stop 07/06/19 at 02:42; Status DC Albumin Human 500 ml @ 125 mls/hr PRN BID PRN IV After every 2L NSS & BP < 90mm Last administered on 10/18/19at 16:06; Start 07/05/19 at 16:00; Stop 10/21/19 at 09:30; Status DC Iohexol (Omnipaque 300 Mg/ml) 60 ml 1X ONCE IV Last administered on 07/05/19at 17:20; Start 07/05/19 at 17:00; Stop 07/05/19 at 17:01; Status DC Info (CONTRAST GIVEN -- Rx MONITORING) 1 each PRN DAILY PRN MC SEE COMMENTS; Start 07/05/19 at 17:00; Stop 07/07/19 at 16:59; Status DC Meropenem 1 gm/ Sodium Chloride 100 ml @ 200 mls/hr Q8HRS IV Last administered on 07/06/19at 05:45; Start 07/05/19 at 20:00; Stop 07/06/19 at 08:48; Status DC Furosemide (Lasix) 40 mg 1X ONCE IVP Last administered on 07/05/19at 22:12; Start 07/05/19 at 22:30; Stop 07/05/19 at 22:31; Status DC Calcium Chloride 1000 mg/Sodium Chloride 110 ml @ 220 mls/hr 1X ONCE IV Last administered on 07/05/19at 22:11; Start 07/05/19 at 22:30; Stop 07/05/19 at 22:59; Status DC Albuterol Sulfate (Ventolin Neb Soln) 2.5 mg 1X ONCE NEB Last administered on 07/06/19at 00:56; Start 07/05/19 at 22:30; Stop 07/05/19 at 22:31; Status DC Insulin Human Regular (HumuLIN R VIAL) 5 unit 1X ONCE IV Last administered on 07/05/19at 22:14; Start 07/05/19 at 22:30; Stop 07/05/19 at 22:31; Status DC Magnesium Sulfate 50 ml @ 25 mls/hr 1X ONCE IV Last administered on 07/06/19at 02:57; Start 07/06/19 at 03:00; Stop 07/06/19 at 04:59; Status DC Calcium Gluconate 1000 mg/Sodium Chloride 110 ml @ 220 mls/hr 1X ONCE IV Last administered on 07/06/19at 02:46; Start 07/06/19 at 03:00; Stop 07/06/19 at 03:29; Status DC Sodium Chloride 1,000 ml @ 200 mls/hr Q5H IV Last administered on 07/06/19at 02:46; Start 07/06/19 at 03:00; Stop 07/06/19 at 10:21; Status DC Calcium Gluconate 1000 mg/Sodium Chloride 110 ml @ 220 mls/hr 1X ONCE IV Last administered on 07/06/19at 03:21; Start 07/06/19 at 03:30; Stop 07/06/19 at 03:59; Status DC Sodium Bicarbonate 50 meq/Sodium Chloride 1,050 ml @ 75 mls/hr Q14H IV Last administered on 07/10/19at 21:10; Start 07/06/19 at 07:30; Stop 07/11/19 at 10:28; Status DC Calcium Gluconate 2000 mg/Sodium Chloride 120 ml @ 220 mls/hr 1X ONCE IV Last administered on 07/06/19at 09:05; Start 07/06/19 at 07:30; Stop 07/06/19 at 08:02; Status DC Lidocaine HCl (Xylocaine-Mpf 1% 2ml Vial) 2 ml STK-MED ONCE .ROUTE ; Start 07/06/19 at 08:47; Stop 07/06/19 at 08:47; Status DC Meropenem 500 mg/ Sodium Chloride 50 ml @ 100 mls/hr Q12HR IV Last administered on 07/11/19at 21:01; Start 07/06/19 at 18:00; Stop 07/12/19 at 07:58; Status DC Lidocaine HCl (Buffered Lidocaine 1%) 3 ml STK-MED ONCE .ROUTE ; Start 07/06/19 at 09:46; Stop 07/06/19 at 09:46; Status DC Lidocaine HCl (Buffered Lidocaine 1%) 6 ml 1X ONCE INJ Last administered on 07/06/19at 10:26; Start 07/06/19 at 10:15; Stop 07/06/19 at 10:16; Status DC Info (Tpn Per Pharmacy) 1 each PRN DAILY PRN MC SEE COMMENTS Last administered on 11/01/19at 10:47; Start 07/06/19 at 12:00 Sodium Chloride 1,000 ml @ 1,000 mls/hr Q1H PRN IV hypotension; Start 07/06/19 at 12:07; Stop 07/06/19 at 18:06; Status DC Diphenhydramine HCl (Benadryl) 25 mg 1X PRN PRN IV ITCHING; Start 07/06/19 at 12:15; Stop 07/07/19 at 12:14; Status DC Diphenhydramine HCl (Benadryl) 25 mg 1X PRN PRN IV ITCHING; Start 07/06/19 at 12:15; Stop 07/07/19 at 12:14; Status DC Sodium Chloride 1,000 ml @ 400 mls/hr Q2H30M PRN IV PATENCY; Start 07/06/19 at 12:07; Stop 07/07/19 at 00:06; Status DC Info (PHARMACY MONITORING -- do not chart) 1 each PRN DAILY PRN MC SEE COMMENTS; Start 07/06/19 at 12:15; Stop 07/08/19 at 08:13; Status DC Sodium Chloride 90 meq/Calcium Gluconate 10 meq/ Multivitamins 10 ml/Chromium/ Copper/Manganese/ Seleni/Zn 1 ml/ Total Parenteral Nutrition/Amino Acids/Dextrose/ Fat Emulsion Intravenous 55.005 ml @ 2.292 mls/hr TPN CONT IV ; Start 07/06/19 at 22:00; Stop 07/06/19 at 12:33; Status DC Info (Tpn Per Pharmacy) 1 each PRN DAILY PRN MC SEE COMMENTS; Start 07/06/19 at 12:30; Status UNV Sodium Chloride 90 meq/Calcium Gluconate 10 meq/ Multivitamins 10 ml/Chromium/ Copper/Manganese/ Seleni/Zn 0.5 ml/ Total Parenteral Nutrition/Amino Acids/Dextrose/ Fat Emulsion Intravenous 1,512 ml @ 63 mls/hr TPN CONT IV Last administered on 07/06/19at 22:06; Start 07/06/19 at 22:00; Stop 07/07/19 at 21:59; Status DC Calcium Carbonate/ Glycine (Tums) 500 mg PRN AFTMEALHC PRN PO INDIGESTION; Start 07/06/19 at 17:45; Stop 08/31/19 at 10:25; Status DC Calcium Gluconate (Calcium Gluconate) 2,000 mg 1X ONCE IVP Last administered on 07/07/19at 02:19; Start 07/07/19 at 02:15; Stop 07/07/19 at 02:16; Status DC Calcium Chloride 3000 mg/Sodium Chloride 1,030 ml @ 50 mls/hr [id number] IV Last administered on 07/09/19at 02:17; Start 07/07/19 at 08:00; Stop 07/09/19 at 15:23; Status DC Lorazepam (Ativan Inj) 1 mg PRN Q4HRS PRN IVP ANXIETY / AGITATION, 2nd choic Last administered on 08/05/19at 03:51; Start 07/07/19 at 09:00; Stop 08/05/19 at 09:19; Status DC Sodium Chloride 1,000 ml @ 1,000 mls/hr Q1H PRN IV hypotension; Start 07/07/19 at 08:56; Stop 07/07/19 at 14:55; Status DC Albumin Human 200 ml @ 200 mls/hr 1X PRN PRN IV Hypotension; Start 07/07/19 at 09:00; Stop 07/07/19 at 14:59; Status DC Diphenhydramine HCl (Benadryl) 25 mg 1X PRN PRN IV ITCHING; Start 07/07/19 at 09:00; Stop 07/08/19 at 08:59; Status DC Diphenhydramine HCl (Benadryl) 25 mg 1X PRN PRN IV ITCHING; Start 07/07/19 at 09:00; Stop 07/08/19 at 08:59; Status DC Sodium Chloride 1,000 ml @ 400 mls/hr Q2H30M PRN IV PATENCY; Start 07/07/19 at 08:56; Stop 07/07/19 at 20:55; Status DC Info (PHARMACY MONITORING -- do not chart) 1 each PRN DAILY PRN MC SEE COMMENTS; Start 07/07/19 at 09:00; Status UNV Info (PHARMACY MONITORING -- do not chart) 1 each PRN DAILY PRN MC SEE COMME NTS; Start 07/07/19 at 09:00; Stop 07/08/19 at 08:13; Status DC Digoxin (Lanoxin) 500 mcg 1X ONCE IV Last administered on 07/07/19at 10:04; Start 07/07/19 at 10:00; Stop 07/07/19 at 10:01; Status DC Digoxin (Lanoxin) 125 mcg 1X ONCE IV Last administered on 07/07/19at 17:10; Start 07/07/19 at 18:00; Stop 07/07/19 at 18:01; Status DC Magnesium Sulfate 100 ml @ 25 mls/hr 1X ONCE IV Last administered on 07/07/19at 12:48; Start 07/07/19 at 13:00; Stop 07/07/19 at 16:59; Status DC Sodium Chloride 90 meq/Magnesium Sulfate 10 meq/ Calcium Gluconate 20 meq/ Multivitamins 10 ml/Chromium/ Copper/Manganese/ Seleni/Zn 0.5 ml/ Total Paren teral Nutrition/Amino Acids/Dextrose/ Fat Emulsion Intravenous 1,512 ml @ 63 mls/hr TPN CONT IV Last administered on 07/07/19at 22:25; Start 07/07/19 at 22:00; Stop 07/08/19 at 21:59; Status DC Sodium Chloride 1,000 ml @ 1,000 mls/hr Q1H PRN IV hypotension; Start 07/08/19 at 08:05; Stop 07/08/19 at 14:04; Status DC Albumin Human 200 ml @ 200 mls/hr 1X ONCE IV Last administered on 07/08/19at 08:57; Start 07/08/19 at 08:15; Stop 07/08/19 at 09:14; Status DC Diphenhydramine HCl (Benadryl) 25 mg 1X PRN PRN IV ITCHING; Start 07/08/19 at 08:15; Stop 07/09/19 at 08:14; Status DC Diphenhydramine HCl (Benadryl) 25 mg 1X PRN PRN IV ITCHING; Start 07/08/19 at 08:15; Stop 07/09/19 at 08:14; Status DC Sodium Chloride 1,000 ml @ 400 mls/hr Q2H30M PRN IV PATENCY; Start 07/08/19 at 08:05; Stop 07/08/19 at 20:04; Status DC Info (PHARMACY MONITORING -- do not chart) 1 each PRN DAILY PRN MC SEE COMMENTS; Start 07/08/19 at 08:15; Stop 07/12/19 at 07:57; Status DC Sodium Chloride 90 meq/Potassium Chloride 15 meq/ Potassium Phosphate 10 mmol/ Magnesium Sulfate 10 meq/Calcium Gluconate 20 meq/ Multivitamins 10 ml/Chromium/ Copper/Manganese/ Seleni/Zn 0.5 ml/ Total Parenteral Nutrition/Amino Acids/Dextrose/ Fat Emulsion Intravenous 1,512 ml @ 63 mls/hr TPN CONT IV Last administered on 07/08/19at 21:01; Start 07/08/19 at 22:00; Stop 07/09/19 at 21:59; Status DC Potassium Chloride/Water 100 ml @ 100 mls/hr 1X ONCE IV Last administered on 07/08/19at 14:09; Start 07/08/19 at 14:00; Stop 07/08/19 at 14:59; Status DC Benzocaine (Hurricaine One) 1 spray 1X ONCE MM Last administered on 07/08/19at 16:38; Start 07/08/19 at 14:30; Stop 07/08/19 at 14:31; Status DC Lidocaine HCl (Glydo (Lidocaine) Jelly) 1 ramu 1X ONCE MM Last administered on 07/08/19at 16:38; Start 07/08/19 at 14:30; Stop 07/08/19 at 14:31; Status DC Linezolid/Dextrose 300 ml @ 300 mls/hr Q12HR IV Last administered on 07/14/19at 21:04; Start 07/08/19 at 20:00; Stop 07/15/19 at 07:50; Status DC Acetaminophen (Tylenol) 650 mg PRN Q6HRS PRN PO MILD PAIN / TEMP; Start 07/09/19 at 03:30; Stop 07/09/19 at 03:36; Status DC Acetaminophen (Tylenol) 650 mg PRN Q6HRS PRN PEG MILD PAIN / TEMP Last administered on 08/04/19at 19:56; Start 07/09/19 at 03:36; Stop 08/31/19 at 10:25; Status DC Sodium Chloride 1,000 ml @ 1,000 mls/hr Q1H PRN IV hypotension; Start 07/09/19 at 07:50; Stop 07/09/19 at 13:49; Status DC Albumin Human 200 ml @ 200 mls/hr 1X PRN PRN IV Hypotension; Start 07/09/19 at 08:00; Stop 07/09/19 at 13:59; Status DC Sodium Chloride (Normal Saline Flush) 10 ml 1X PRN PRN IV AP catheter pack; Start 07/09/19 at 08:00; Stop 07/10/19 at 07:59; Status DC Sodium Chloride (Normal Saline Flush) 10 ml 1X PRN PRN IV [employer] catheter pack; Start 07/09/19 at 08:00; Stop 07/10/19 at 07:59; Status DC Sodium Chloride 1,000 ml @ 400 mls/hr Q2H30M PRN IV PATENCY; Start 07/09/19 at 07:50; Stop 07/09/19 at 19:49; Status DC Info (PHARMACY MONITORING -- do not chart) 1 each PRN DAILY PRN MC SEE COMMENTS; Start 07/09/19 at 08:00; Status UNV Info (PHARMACY MONITORING -- do not chart) 1 each PRN DAILY PRN MC SEE COMMENTS; Start 07/09/19 at 08:00; Stop 07/11/19 at 08:25; Status DC Sodium Chloride 90 meq/Potassium Chloride 15 meq/ Potassium Phosphate 10 mmol/ Magnesium Sulfate 10 meq/Calcium Gluconate 20 meq/ Multivitamins 10 ml/Chromium/ Copper/Manganese/ Seleni/Zn 0.5 ml/ Total Parenteral Nutrition/Amino Acids/Dextrose/ Fat Emulsion Intravenous 1,512 ml @ 63 mls/hr TPN CONT IV Last administered on 07/09/19at 20:57; Start 07/09/19 at 22:00; Stop 07/10/19 at 21:59; Status DC Sodium Chloride 90 meq/Potassium Chloride 15 meq/ Potassium Phosphate 15 mmol/ Magnesium Sulfate 10 meq/Calcium Gluconate 20 meq/ Multivitamins 10 ml/Chromium/ Copper/Manganese/ Seleni/Zn 0.5 ml/ Total Parenteral Nutrition/Amino Acids/Dextrose/ Fat Emulsion Intravenous 1,512 ml @ 63 mls/hr TPN CONT IV ; Start 07/10/19 at 22:00; Stop 07/10/19 at 14:16; Status DC Sodium Chloride 90 meq/Potassium Chloride 15 meq/ Potassium Phosphate 15 mmol/ Magnesium Sulfate 10 meq/Calcium Gluconate 20 meq/ Multivitamins 10 ml/Chromium/ Copper/Manganese/ Seleni/Zn 0.5 ml/ Total Parenteral Nutrition/Amino Acids/Dextrose/ Fat Emulsion Intravenous 1,200 ml @ 50 mls/hr TPN CONT IV ; Start 07/10/19 at 22:00; Stop 07/10/19 at 14:17; Status DC Sodium Chloride 90 meq/Potassium Chloride 15 meq/ Potassium Phosphate 10 mmol/ Magnesium Sulfate 10 meq/Calcium Gluconate 20 meq/ Multivitamins 10 ml/Chromium/ Copper/Manganese/ Seleni/Zn 0.5 ml/ Total Parenteral Nutrition/Amino Acids/Dextrose/ Fat Emulsion Intravenous 1,200 ml @ 50 mls/hr TPN CONT IV Last administered on 07/10/19at 23:29; Start 07/10/19 at 22:00; Stop 07/11/19 at 21:59; Status DC Sodium Chloride 1,000 ml @ 1,000 mls/hr Q1H PRN IV hypotension; Start 07/11/19 at 07:28; Stop 07/11/19 at 13:27; Status DC Albumin Human 200 ml @ 200 mls/hr 1X ONCE IV Last administered on 07/11/19at 08:51; Start 07/11/19 at 07:30; Stop 07/11/19 at 08:29; Status DC Diphenhydramine HCl (Benadryl) 25 mg 1X PRN PRN IV ITCHING; Start 07/11/19 at 07:30; Stop 07/12/19 at 07:29; Status DC Diphenhydramine HCl (Benadryl) 25 mg 1X PRN PRN IV ITCHING; Start 07/11/19 at 07:30; Stop 07/12/19 at 07:29; Status DC Sodium Chloride 1,000 ml @ 400 mls/hr Q2H30M PRN IV PATENCY; Start 07/11/19 at 07:28; Stop 07/11/19 at 19:27; Status DC Info (PHARMACY MONITORING -- do not chart) 1 each PRN DAILY PRN MC SEE COMMENTS; Start 07/11/19 at 07:30; Stop 07/22/19 at 13:01; Status DC Metronidazole 100 ml @ 100 mls/hr Q6HRS IV Last administered on 07/27/19at 06:26; Start 07/11/19 at 08:30; Stop 07/27/19 at 09:58; Status DC Micafungin Sodium 100 mg/Dextrose 100 ml @ 100 mls/hr Q24H IV Last administered on 08/18/19at 08:18; Start 07/11/19 at 09:00; Stop 08/18/19 at 20:58; Status DC Propofol 0 ml @ As Directed STK-MED ONCE IV ; Start 07/11/19 at 07:53; Stop 07/11/19 at 07:53; Status DC Etomidate (Amidate) 20 mg STK-MED ONCE IV ; Start 07/11/19 at 07:53; Stop 07/11/19 at 07:54; Status DC Midazolam HCl (Versed) 5 mg STK-MED ONCE .ROUTE ; Start 07/11/19 at 07:57; Stop 07/11/19 at 07:57; Status DC Fentanyl Citrate 30 ml @ 0 mls/hr CONT PRN IV SEE PROTOCOL Last administered on 08/05/19at 06:12; Start 07/11/19 at 08:15; Stop 08/05/19 at 09:19; Status DC Artificial Tears (Artificial Tears) 1 drop PRN Q1HR PRN OU DRY EYE, 1st choice; Start 07/11/19 at 08:15; Stop 08/17/19 at 05:31; Status DC Midazolam HCl 50 mg/Sodium Chloride 50 ml @ 0 mls/hr CONT PRN IV SEE PROTOCOL Last administered on 07/14/19at 22:39; Start 07/11/19 at 08:15; Stop 07/16/19 at 15:59; Status DC Etomidate (Amidate) 8 mg 1X ONCE IV Last administered on 07/11/19at 08:33; Start 07/11/19 at 08:30; Stop 07/11/19 at 08:31; Status DC Succinylcholine Chloride (Anectine) 120 mg 1X ONCE IV Last administered on 07/11/19at 08:34; Start 07/11/19 at 08:30; Stop 07/11/19 at 08:31; Status DC Midazolam HCl (Versed) 5 mg 1X ONCE IV ; Start 07/11/19 at 08:30; Stop 07/11/19 at 08:31; Status DC Potassium Chloride 15 meq/ Bicarbonate Dialysis Soln w/ out KCl 5,007.5 ml @ 1,000 mls/ hr Q5H1M IV Last administered on 07/12/19at 11:11; Start 07/11/19 at 12:00; Stop 07/12/19 at 11:15; Status DC Potassium Chloride 15 meq/ Bicarbonate Dialysis Soln w/ out KCl 5,007.5 ml @ 1,000 mls/ hr Q5H1M IV Last administered on 07/12/19at 11:12; Start 07/11/19 at 12:00; Stop 07/12/19 at 11:17; Status DC Potassium Chloride 15 meq/ Bicarbonate Dialysis Soln w/ out KCl 5,007.5 ml @ 1,000 mls/ hr Q5H1M IV Last administered on 07/12/19at 11:11; Start 07/11/19 at 12:00; Stop 07/12/19 at 11:19; Status DC Sodium Chloride 90 meq/Potassium Chloride 15 meq/ Potassium Phosphate 10 mmol/ Magnesium Sulfate 10 meq/Calcium Gluconate 20 meq/ Multivitamins 10 ml/Chromium/ Copper/Manganese/ Seleni/Zn 0.5 ml/ Total Parenteral Nutrition/Amino Acids/Dextrose/ Fat Emulsion Intravenous 1,400 ml @ 58.333 mls/ hr TPN CONT IV Last administered on 07/11/19at 21:42; Start 07/11/19 at 22:00; Stop 07/12/19 at 21:59; Status DC Heparin Sodium (Porcine) (Heparin Sodium) 5,000 unit Q8HRS SQ Last administered on 07/16/19at 05:55; Start 07/11/19 at 15:00; Stop 07/16/19 at 13:28; Status DC Meropenem 500 mg/ Sodium Chloride 50 ml @ 100 mls/hr Q6HRS IV Last administered on 07/13/19at 06:00; Start 07/12/19 at 09:00; Stop 07/13/19 at 07:29; Status DC Potassium Phosphate 20 mmol/ Sodium Chloride 106.6667 ml @ 51.667 m... 1X ONCE IV Last administered on 07/12/19at 11:22; Start 07/12/19 at 10:15; Stop 07/12/19 at 12:18; Status DC Acetaminophen (Tylenol Supp) 650 mg PRN Q6HRS PRN [place] MILD PAIN / TEMP > 100.3'F Last administered on 11/02/19at 19:52; Start 07/12/19 at 10:30 Potassium Chloride/Water 100 ml @ 100 mls/hr Q1H IV Last administered on 07/12/19at 12:12; Start 07/12/19 at 11:00; Stop 07/12/19 at 12:59; Status DC Potassium Chloride 20 meq/ Bicarbonate Dialysis Soln w/ out KCl 5,010 ml @ 1,000 mls/hr Q5H1M IV Last administered on 07/13/19at 08:48; Start 07/12/19 at 12:00; Stop 07/13/19 at 13:03; Status DC Potassium Chloride 20 meq/ Bicarbonate Dialysis Soln w/ out KCl 5,010 ml @ 1,000 mls/hr Q5H1M IV Last administered on 07/17/19at 14:52; Start 07/12/19 at 11:30; Stop 07/17/19 at 19:59; Status DC Potassium Chloride 20 meq/ Bicarbonate Dialysis Soln w/ out KCl 5,010 ml @ 1,000 mls/hr Q5H1M IV Last administered on 07/17/19at 14:53; Start 07/12/19 at 11:30; Stop 07/17/19 at 19:59; Status DC Sodium Chloride 90 meq/Potassium Chloride 15 meq/ Potassium Phosphate 15 mmol/ Magnesium Sulfate 10 meq/Calcium Gluconate 15 meq/ Multivitamins 10 ml/Chromium/ Copper/Manganese/ Seleni/Zn 0.5 ml/ Total Parenteral Nutrition/Amino Acids/Dextrose/ Fat Emulsion Intravenous 1,400 ml @ 58.333 mls/ hr TPN CONT IV Last administered on 07/12/19at 22:17; Start 07/12/19 at 22:00; Stop 07/13/19 at 21:59; Status DC Cefepime HCl (Maxipime) 2 gm Q12HR IVP Last administered on 07/26/19at 20:56; Start 07/13/19 at 09:00; Stop 07/27/19 at 09:58; Status DC Daptomycin 500 mg/ Sodium Chloride 50 ml @ 100 mls/hr Q48H IV Last administered on 07/29/19at 09:57; Start 07/13/19 at 08:30; Stop 07/29/19 at 10:07; Status DC Lidocaine HCl (Buffered Lidocaine 1%) 3 ml 1X ONCE INJ Last administered on 07/13/19at 10:27; Start 07/13/19 at 10:30; Stop 07/13/19 at 10:31; Status DC Potassium Phosphate 20 mmol/ Sodium Chloride 106.6667 ml @ 51.667 m... 1X ONCE IV Last administered on 07/13/19at 12:51; Start 07/13/19 at 13:00; Stop 07/13/19 at 15:03; Status DC Sodium Chloride 90 meq/Potassium Chloride 15 meq/ Potassium Phosphate 18 mmol/ Magnesium Sulfate 8 meq/Calcium Gluconate 15 meq/ Multivitamins 10 ml/Chromium/ Copper/Manganese/ Seleni/Zn 0.5 ml/ Total Parenteral Nutrition/Amino Acids/Dextrose/ Fat Emulsion Intravenous 1,400 ml @ 58.333 mls/ hr TPN CONT IV Last administered on 07/13/19at 22:16; Start 07/13/19 at 22:00; Stop 07/14/19 at 21:59; Status DC Potassium Chloride 20 meq/ Bicarbonate Dialysis Soln w/ out KCl 5,010 ml @ 1,000 mls/hr Q5H1M IV Last administered on 07/17/19at 14:54; Start 07/13/19 at 16:00; Stop 07/17/19 at 19:59; Status DC Multi-Ingred Cream/Lotion/Oil/ Oint (Artificial Tears Eye Ointment) 1 ramu PRN Q1HR PRN OU DRY EYE, 2nd choice Last administered on 08/01/19at 08:19; Start 07/13/19 at 17:30; Stop 09/21/19 at 14:39; Status DC Sodium Chloride 90 meq/Potassium Chloride 15 meq/ Potassium Phosphate 18 mmol/ Magnesium Sulfate 8 meq/Calcium Gluconate 15 meq/ Multivitamins 10 ml/Chromium/ Copper/Manganese/ Seleni/Zn 0.5 ml/ Total Parenteral Nutrition/Amino Acids/Dextrose/ Fat Emulsion Intravenous 1,400 ml @ 58.333 mls/ hr TPN CONT IV Last administered on 07/14/19at 22:00; Start 07/14/19 at 22:00; Stop 07/15/19 at 21:59; Status DC Albumin Human 500 ml @ 125 mls/hr 1X ONCE IV ; Start 07/14/19 at 14:15; Stop 07/14/19 at 18:14; Status DC Sodium Chloride 90 meq/Potassium Chloride 15 meq/ Potassium Phosphate 18 mmol/ Magnesium Sulfate 8 meq/Calcium Gluconate 15 meq/ Multivitamins 10 ml/Chromium/ Copper/Manganese/ Seleni/Zn 0.5 ml/ Insulin Human Regular 10 unit/ Total Parenteral Nutrition/Amino Acids/Dextrose/ Fat Emulsion Intravenous 1,400 ml @ 58.333 mls/ hr TPN CONT IV Last administered on 07/15/19at 21:43; Start at 22:00; Stop 07/16/19 at 21:59; Status DC Lidocaine HCl (Buffered Lidocaine 1%) 3 ml STK-MED ONCE .ROUTE ; Start 07/13/19 at 10:00; Stop 07/15/19 at 13:57; Status DC Midazolam HCl 100 mg/Sodium Chloride 100 ml @ 7 mls/hr CONT PRN IV SEE PROTOCOL Last administered on 07/27/19at 15:35; Start 07/16/19 at 16:00; Stop 09/21/19 at 14:38; Status DC Sodium Chloride 90 meq/Potassium Chloride 15 meq/ Potassium Phosphate 18 mmol/ Magnesium Sulfate 8 meq/Calcium Gluconate 15 meq/ Multivitamins 10 ml/Chromium/ Copper/Manganese/ Seleni/Zn 0.5 ml/ Insulin Human Regular 15 unit/ Total Parenteral Nutrition/Amino Acids/Dextrose/ Fat Emulsion Intravenous 1,400 ml @ 58.333 mls/ hr TPN CONT IV Last administered on 07/16/19at 20:34; Start 07/16/19 at 22:00; Stop 07/17/19 at 21:59; Status DC Info (Icu Electrolyte Protocol) 1 ea CONT PRN PRN MC PER PROTOCOL; Start 07/17/19 at 13:15 Sodium Chloride 90 meq/Potassium Chloride 15 meq/ Potassium Phosphate 18 mmol/ Magnesium Sulfate 8 meq/Calcium Gluconate 15 meq/ Multivitamins 10 ml/Chromium/ Copper/Manganese/ Seleni/Zn 0.5 ml/ Insulin Human Regular 15 unit/ Total Parenteral Nutrition/Amino Acids/Dextrose/ Fat Emulsion Intravenous 1,400 ml @ 58.333 mls/ hr TPN CONT IV Last administered on 07/17/19at 22:05; Start 07/17/19 at 22:00; Stop 07/18/19 at 21:59; Status DC Potassium Chloride 15 meq/ Bicarbonate Dialysis Soln w/ out KCl 5,007.5 ml @ 1,000 mls/ hr Q5H1M IV Last administered on 07/20/19at 18:14; Start 07/17/19 at 20:00; Stop 07/21/19 at 13:08; Status DC Potassium Chloride 15 meq/ Bicarbonate Dialysis Soln w/ out KCl 5,007.5 ml @ 1,000 mls/ hr Q5H1M IV Last administered on 07/20/19at 18:14; Start 07/17/19 at 20:00; Stop 07/21/19 at 13:08; Status DC Potassium Chloride 15 meq/ Bicarbonate Dialysis Soln w/ out KCl 5,007.5 ml @ 1,000 mls/ hr Q5H1M IV Last administered on 07/20/19at 18:14; Start 07/17/19 at 20:00; Stop 07/21/19 at 13:08; Status DC Iohexol (Omnipaque 240 Mg/ml) 30 ml 1X ONCE PO Last administered on 07/18/19at 11:30; Start 07/18/19 at 11:30; Stop 07/18/19 at 11:33; Status DC Info (CONTRAST GIVEN -- Rx MONITORING) 1 each PRN DAILY PRN MC SEE COMMENTS; Start 07/18/19 at 11:45; Stop 07/20/19 at 11:44; Status DC Sodium Chloride 90 meq/Potassium Chloride 15 meq/ Potassium Phosphate 18 mmol/ Magnesium Sulfate 8 meq/Calcium Gluconate 15 meq/ Multivitamins 10 ml/Chromium/ Copper/Manganese/ Seleni/Zn 0.5 ml/ Insulin Human Regular 15 unit/ Total Pa renteral Nutrition/Amino Acids/Dextrose/ Fat Emulsion Intravenous 1,400 ml @ 58.333 mls/ hr TPN CONT IV Last administered on 07/18/19at 21:47; Start 07/18/19 at 22:00; Stop 07/19/19 at 21:59; Status DC Sodium Chloride 90 meq/Potassium Chloride 15 meq/ Potassium Phosphate 18 mmol/ Magnesium Sulfate 8 meq/Calcium Gluconate 15 meq/ Multivitamins 10 ml/Chromium/ Copper/Manganese/ Seleni/Zn 0.5 ml/ Insulin Human Regular 20 unit/ Total Parenteral Nutrition/Amino Acids/Dextrose/ Fat Emulsion Intravenous 1,400 ml @ 58.333 mls/ hr TPN CONT IV Last administered on 07/19/19at 21:36; Start 07/19/19 at 22:00; Stop 07/20/19 at 21:59; Status DC Alteplase, Recombinant (Cathflo For Central Catheter Clearance) 1 mg 1X ONCE INT CAT Last administered on 07/19/19at 20:03; Start 07/19/19 at 19:30; Stop 07/19/19 at 19:46; Status DC Alteplase, Recombinant (Cathflo For Central Catheter Clearance) 1 mg 1X ONCE INT CAT Last administered on 07/19/19at 22:05; Start 07/19/19 at 22:00; Stop 07/19/19 at 22:01; Status DC Sodium Chloride 90 meq/Potassium Chloride 15 meq/ Potassium Phosphate 18 mmol/ Magnesium Sulfate 8 meq/Calcium Gluconate 15 meq/ Multivitamins 10 ml/Chromium/ Copper/Manganese/ Seleni/Zn 0.5 ml/ Insulin Human Regular 20 unit/ Total Parenteral Nutrition/Amino Acids/Dextrose/ Fat Emulsion Intravenous 1,400 ml @ 58.333 mls/ hr TPN CONT IV Last administered on 07/20/19at 21:30; Start 07/20/19 at 22:00; Stop 07/21/19 at 21:59; Status DC Dexmedetomidine HCl 400 mcg/ Sodium Chloride 100 ml @ 0 mls/hr CONT PRN IV ANXIETY / AGITATION Last administered on 09/17/19at 12:57; Start 07/21/19 at 08:15; Stop 09/17/19 at 18:31; Status DC Sodium Chloride 500 ml @ 500 mls/hr 1X PRN PRN IV ELEVATED BP, SEE COMMENTS; Start 07/21/19 at 08:15 Atropine Sulfate (ATROPINE 0.5mg SYRINGE) 0.5 mg PRN Q5MIN PRN IV SEE COMMENTS; Start 07/21/19 at 08:15 Furosemide (Lasix) 20 mg 1X ONCE IVP Last administered on 07/21/19at 08:19; Start 07/21/19 at 08:15; Stop 07/21/19 at 08:16; Status DC Lidocaine HCl (Buffered Lidocaine 1%) 3 ml STK-MED ONCE .ROUTE ; Start 07/21/19 at 08:39; Stop 07/21/19 at 08:39; Status DC Lidocaine HCl (Buffered Lidocaine 1%) 6 ml 1X ONCE INJ Last administered on 07/21/19at 09:05; Start 07/21/19 at 09:00; Stop 07/21/19 at 09:06; Status DC Sodium Chloride 90 meq/Potassium Chloride 15 meq/ Potassium Phosphate 18 mmol/ Magnesium Sulfate 8 meq/Calcium Gluconate 15 meq/ Multivitamins 10 ml/Chromium/ Copper/Manganese/ Seleni/Zn 0.5 ml/ Insulin Human Regular 20 unit/ Total Parenteral Nutrition/Amino Acids/Dextrose/ Fat Emulsion Intravenous 1,400 ml @ 58.333 mls/ hr TPN CONT IV Last administered on 07/21/19at 22:45; Start 07/21/19 at 22:00; Stop 07/22/19 at 21:59; Status DC Sodium Chloride 1,000 ml @ 1,000 mls/hr Q1H PRN IV hypotension; Start 07/22/19 at 07:30; Stop 07/22/19 at 13:29; Status DC Albumin Human 200 ml @ 200 mls/hr 1X PRN PRN IV Hypotension Last administered on 07/22/19at 09:36; Start 07/22/19 at 07:30; Stop 07/22/19 at 13:29; Status DC Sodium Chloride (Normal Saline Flush) 10 ml 1X PRN PRN IV AP catheter pack; Start 07/22/19 at 07:30; Stop 07/22/19 at 21:29; Status DC Sodium Chloride (Normal Saline Flush) 10 ml 1X PRN PRN IV [employer]ID[employer] catheter pack; Start 07/22/19 at 07:30; Stop 07/23/19 at 07:29; Status DC Sodium Chloride 1,000 ml @ 400 mls/hr Q2H30M PRN IV PATENCY; Start 07/22/19 at 07:30; Stop 07/22/19 at 19:29; Status DC Info (PHARMACY MONITORING -- do not chart) 1 each PRN DAILY PRN MC SEE COMMENTS; Start 07/22/19 at 07:30; Stop 07/22/19 at 13:02; Status DC Info (PHARMACY MONITORING -- do not chart) 1 each PRN DAILY PRN MC SEE COMMENTS; Start 07/22/19 at 07:30; Stop 07/24/19 at 12:45; Status DC Sodium Chloride 90 meq/Potassium Chloride 15 meq/ Potassium Phosphate 10 mmol/ Magnesium Sulfate 8 meq/Calcium Gluconate 15 meq/ Multivitamins 10 ml/Chromium/ Copper/Manganese/ Seleni/Zn 0.5 ml/ Insulin Human Regular 25 unit/ Total Parenteral Nutrition/Amino Acids/Dextrose/ Fat Emulsion Intravenous 1,400 ml @ 58.333 mls/ hr TPN CONT IV Last administered on 07/22/19at 22:19; Start 07/22/19 at 22:00; Stop 07/23/19 at 21:59; Status DC Heparin Sodium (Porcine) (Heparin Sodium) 5,000 unit Q12HR SQ Last administered on 08/14/19at 08:59; Start 07/22/19 at 21:00; Stop 08/14/19 at 10:05; Status DC Ondansetron HCl (Zofran) 4 mg PRN Q6HRS PRN IV NAUSEA/VOMITING; Start 07/25/19 at 07:00; Stop 07/26/19 at 06:59; Status DC Fentanyl Citrate (Fentanyl 2ml Vial) 25 mcg PRN Q5MIN PRN IV MILD PAIN 1-3; Start 07/25/19 at 07:00; Stop 07/26/19 at 06:59; Status DC Fentanyl Citrate (Fentanyl 2ml Vial) 50 mcg PRN Q5MIN PRN IV MODERATE TO SEVERE PAIN; Start 07/25/19 at 07:00; Stop 07/26/19 at 06:59; Status DC Ringer's Solution 1,000 ml @ 30 mls/hr Q24H IV ; Start 07/25/19 at 07:00; Stop 07/25/19 at 18:59; Status DC Lidocaine HCl (Xylocaine-Mpf 1% 2ml Vial) 2 ml PRN 1X PRN ID PRIOR TO IV START; Start 07/25/19 at 07:00; Stop 07/26/19 at 06:59; Status DC Prochlorperazine Edisylate (Compazine) 5 mg PACU PRN PRN IV NAUSEA, MRX1; Start 07/25/19 at 07:00; Stop 07/26/19 at 06:59; Status DC Sodium Chloride 1,000 ml @ 1,000 mls/hr Q1H PRN IV hypotension; Start 07/23/19 at 09:10; Stop 07/23/19 at 15:09; Status DC Albumin Human 200 ml @ 200 mls/hr 1X PRN PRN IV Hypotension Last administered on 07/23/19at 10:10; Start 07/23/19 at 09:15; Stop 07/23/19 at 15:14; Status DC Sodium Chloride 1,000 ml @ 400 mls/hr Q2H30M PRN IV PATENCY; Start 07/23/19 at 09:10; Stop 07/23/19 at 21:09; Status DC Info (PHARMACY MONITORING -- do not chart) 1 each PRN DAILY PRN MC SEE COMMENTS; Start 07/23/19 at 09:15; Stop 07/24/19 at 12:45; Status DC Info (PHARMACY MONITORING -- do not chart) 1 each PRN DAILY PRN MC SEE COMMENTS; Start 07/23/19 at 09:15; Stop 07/24/19 at 12:45; Status DC Sodium Chloride 90 meq/Potassium Chloride 15 meq/ Potassium Phosphate 10 mmol/ Magnesium Sulfate 8 meq/Calcium Gluconate 15 meq/ Multivitamins 10 ml/Chromium/ Copper/Manganese/ Seleni/Zn 0.5 ml/ Insulin Human Regular 25 unit/ Total Parenteral Nutrition/Amino Acids/Dextrose/ Fat Emulsion Intravenous 1,400 ml @ 58.333 mls/ hr TPN CONT IV Last administered on 07/23/19at 22:10; Start 07/23/19 at 22:00; Stop 07/24/19 at 21:59; Status DC Magnesium Sulfate 50 ml @ 25 mls/hr PRN DAILY PRN IV for Mag < 1.7 on am labs Last administered on 10/06/19at 10:57; Start 07/24/19 at 09:15 Sodium Chloride 90 meq/Potassium Chloride 15 meq/ Potassium Phosphate 10 mmol/ Magnesium Sulfate 8 meq/Calcium Gluconate 15 meq/ Multivitamins 10 ml/Chromium/ Copper/Manganese/ Seleni/Zn 0.5 ml/ Insulin Human Regular 25 unit/ Total Parenteral Nutrition/Amino Acids/Dextrose/ Fat Emulsion Intravenous 1,400 ml @ 58.333 mls/ hr TPN CONT IV Last administered on 07/24/19at 21:20; Start 07/24/19 at 22:00; Stop 07/25/19 at 21:59; Status DC Sodium Chloride 1,000 ml @ 1,000 mls/hr Q1H PRN IV hypotension; Start 07/24/19 at 12:23; Stop 07/24/19 at 18:22; Status DC Albumin Human 200 ml @ 200 mls/hr 1X ONCE IV Last administered on 07/24/19at 13:34; Start 07/24/19 at 12:30; Stop 07/24/19 at 13:29; Status DC Diphenhydramine HCl (Benadryl) 25 mg 1X PRN PRN IV ITCHING; Start 07/24/19 at 12:30; Stop 07/25/19 at 12:29; Status DC Diphenhydramine HCl (Benadryl) 25 mg 1X PRN PRN IV ITCHING; Start 07/24/19 at 12:30; Stop 07/25/19 at 12:29; Status DC Info (PHARMACY MONITORING -- do not chart) 1 each PRN DAILY PRN MC SEE PIPE TS; Start 07/24/19 at 12:30; Status Cancel Bupivacaine HCl/ Epinephrine Bitart (Sensorcain-Epi 0.5%-1:[id number] Mpf) 30 ml STK-MED ONCE .ROUTE Last administered on 07/25/19at 11:44; Start 07/25/19 at 11:00; Stop 07/25/19 at 11:01; Status DC Cellulose (Surgicel Fibrillar 1x2) 1 each STK-MED ONCE .ROUTE ; Start 07/25/19 at 11:00; Stop 07/25/19 at 11:01; Status DC Sodium Chloride 90 meq/Potassium Chloride 15 meq/ Potassium Phosphate 10 mmol/ Magnesium Sulfate 12 meq/Calcium Gluconate 15 meq/ Multivitamins 10 ml/Chromium/ Copper/Manganese/ Seleni/Zn 0.5 ml/ Insulin Human Regular 25 unit/ Total Parenteral Nutrition/Amino Acids/Dextrose/ Fat Emulsion Intravenous 1,400 ml @ 58.333 mls/ hr TPN CONT IV Last administered on 07/25/19at 22:24; Start 07/25/19 at 22:00; Stop 07/26/19 at 21:59; Status DC Propofol 20 ml @ As Directed STK-MED ONCE IV ; Start 07/25/19 at 11:07; Stop 07/25/19 at 11:07; Status DC Cellulose (Surgicel Hemostat 4x8) 1 each STK-MED ONCE .ROUTE Last administered on 07/25/19at 11:44; Start 07/25/19 at 11:55; Stop 07/25/19 at 11:56; Status DC Sevoflurane (Ultane) 60 ml STK-MED ONCE IH ; Start 07/25/19 at 12:46; Stop 07/25/19 at 12:46; Status DC Sodium Chloride 1,000 ml @ 1,000 mls/hr Q1H PRN IV hypotension; Start 07/25/19 at 13:51; Stop 07/25/19 at 19:50; Status DC Albumin Human 200 ml @ 200 mls/hr 1X PRN PRN IV Hypotension Last administered on 07/25/19at 14:51; Start 07/25/19 at 14:00; Stop 07/25/19 at 19:59; Status DC Diphenhydramine HCl (Benadryl) 25 mg 1X PRN PRN IV ITCHING; Start 07/25/19 at 14:00; Stop 07/26/19 at 13:59; Status DC Diphenhydramine HCl (Benadryl) 25 mg 1X PRN PRN IV ITCHING; Start 07/25/19 at 14:00; Stop 07/26/19 at 13:59; Status DC Sodium Chloride 1,000 ml @ 400 mls/hr Q2H30M PRN IV PATENCY; Start 07/25/19 at 13:51; Stop 07/26/19 at 01:50; Status DC Info (PHARMACY MONITORING -- do not chart) 1 each PRN DAILY PRN MC SEE COMMENTS; Start 07/25/19 at 14:00; Stop 07/28/19 at 08:16; Status DC Heparin Sodium (Porcine) (Hep Lock Adult) 500 unit STK-MED ONCE IVP ; Start 07/26/19 at 09:29; Stop 07/26/19 at 09:30; Status DC Sodium Chloride 1,000 ml @ 1,000 mls/hr Q1H PRN IV hypotension; Start 07/26/19 at 10:43; Stop 07/26/19 at 16:42; Status DC Sodium Chloride 1,000 ml @ 400 mls/hr Q2H30M PRN IV PATENCY; Start 07/26/19 at 10:43; Stop 07/26/19 at 22:42; Status DC Info (PHARMACY MONITORING -- do not chart) 1 each PRN DAILY PRN MC SEE COMMENTS; Start 07/26/19 at 10:45; Status UNV Info (PHARMACY MONITORING -- do not chart) 1 each PRN DAILY PRN MC SEE COMMENTS; Start 07/26/19 at 10:45; Status UNV Sodium Chloride 90 meq/Potassium Chloride 15 meq/ Magnesium Sulfate 12 meq/Calcium Gluconate 15 meq/ Multivitamins 10 ml/Chromium/ Copper/Manganese/ Seleni/Zn 0.5 ml/ Insulin Human Regular 25 unit/ Total Parenteral Nutrition/Amino Acids/Dextrose/ Fat Emulsion Intravenous 1,400 ml @ 58.333 mls/ hr TPN CONT IV Last administered on 07/26/19at 22:13; Start 07/26/19 at 22:00; Stop 07/27/19 at 21:59; Status DC Sodium Chloride 1,000 ml @ 1,000 mls/hr Q1H PRN IV hypotension; Start 07/27/19 at 07:50; Stop 07/27/19 at 13:49; Status DC Albumin Human 200 ml @ 200 mls/hr 1X ONCE IV ; Start 07/27/19 at 08:00; Stop 07/27/19 at 08:53; Status DC Diphenhydramine HCl (Benadryl) 25 mg 1X PRN PRN IV ITCHING; Start 07/27/19 at 08:00; Stop 07/28/19 at 07:59; Status DC Diphenhydramine HCl (Benadryl) 25 mg 1X PRN PRN IV ITCHING; Start 07/27/19 at 08:00; Stop 07/28/19 at 07:59; Status DC Info (PHARMACY MONITORING -- do not chart) 1 each PRN DAILY PRN MC SEE COMMENTS; Start 07/27/19 at 08:00; Stop 07/28/19 at 08:16; Status DC Albumin Human 50 ml @ 50 mls/hr 1X ONCE IV ; Start 07/27/19 at 08:53; Stop 07/27/19 at 08:56; Status DC Albumin Human 200 ml @ 50 mls/hr PRN 1X PRN IV HYPOTENSION Last administered on 08/02/19at 11:54; Start 07/27/19 at 09:00; Stop 09/08/19 at 11:14; Status DC Meropenem 500 mg/ Sodium Chloride 50 ml @ 100 mls/hr Q12H IV Last administered on 08/16/19at 10:45; Start 07/27/19 at 10:00; Stop 08/16/19 at 12:37; Status DC Sodium Chloride 90 meq/Magnesium Sulfate 12 meq/ Calcium Gluconate 15 meq/ Multivitamins 10 ml/Chromium/ Copper/Manganese/ Seleni/Zn 0.5 ml/ Insulin Human Regular 25 unit/ Total Parenteral Nutrition/Amino Acids/Dextrose/ Fat Emulsion Intravenous 1,400 ml @ 58.333 mls/ hr TPN CONT IV Last administered on 07/27/19at 21:41; Start 07/27/19 at 22:00; Stop 07/28/19 at 21:59; Status DC Sodium Chloride 1,000 ml @ 1,000 mls/hr Q1H PRN IV hypotension; Start 07/28/19 at 07:58; Stop 07/28/19 at 13:57; Status DC Albumin Human 200 ml @ 200 mls/hr 1X PRN PRN IV Hypotension Last administered on 07/28/19at 09:30; Start 07/28/19 at 08:00; Stop 07/28/19 at 13:59; Status DC Sodium Chloride 1,000 ml @ 400 mls/hr Q2H30M PRN IV PATENCY; Start 07/28/19 at 07:58; Stop 07/28/19 at 19:57; Status DC Info (PHARMACY MONITORING -- do not chart) 1 each PRN DAILY PRN MC SEE COMMENTS; Start 07/28/19 at 08:00; Status Cancel Info (PHARMACY MONITORING -- do not chart) 1 each PRN DAILY PRN MC SEE COMMENTS; Start 07/28/19 at 08:15; Status UNV Sodium Chloride 90 meq/Potassium Phosphate 5 mmol/ Magnesium Sulfate 12 meq/Calcium Gluconate 15 meq/ Multivitamins 10 ml/Chromium/ Copper/Manganese/ Seleni/Zn 0.5 ml/ Insulin Human Regular 30 unit/ Total Parenteral Nutrition/Amino Acids/Dextrose/ Fat Emulsion Intravenous 1,400 ml @ 58.333 mls/ hr TPN CONT IV Last administered on 07/28/19at 22:08; Start 07/28/19 at 22:00; Stop 07/29/19 at 21:59; Status DC Linezolid/Dextrose 300 ml @ 300 mls/hr Q12HR IV Last administered on 08/08/19at 20:40; Start 07/29/19 at 11:00; Stop 08/09/19 at 08:10; Status DC Sodium Chloride 90 meq/Potassium Phosphate 15 mmol/ Magnesium Sulfate 12 meq/Calcium Gluconate 15 meq/ Multivitamins 10 ml/Chromium/ Copper/Manganese/ Seleni/Zn 0.5 ml/ Insulin Human Regular 30 unit/ Total Parenteral Nutrition/Amino Acids/Dextrose/ Fat Emulsion Intravenous 1,400 ml @ 58.333 mls/ hr TPN CONT IV Last administered on 07/29/19at 21:49; Start 07/29/19 at 22:00; Stop 07/30/19 at 21:59; Status DC Sodium Chloride 90 meq/Potassium Phosphate 15 mmol/ Magnesium Sulfate 12 meq/Calcium Gluconate 15 meq/ Multivitamins 10 ml/Chromium/ Copper/Manganese/ Seleni/Zn 0.5 ml/ Insulin Human Regular 40 unit/ Total Parenteral Nutrition/Amino Acids/Dextrose/ Fat Emulsion Intravenous 1,400 ml @ 58.333 mls/ hr TPN CONT IV Last administered on 07/30/19at 21:21; Start 07/30/19 at 22:00; Stop 07/31/19 at 21:59; Status DC Sodium Chloride 1,000 ml @ 1,000 mls/hr Q1H PRN IV hypotension; Start 07/30/19 at 13:26; Stop 07/30/19 at 19:25; Status DC Albumin Human 200 ml @ 200 mls/hr 1X PRN PRN IV Hypotension Last administered on 07/30/19at 15:00; Start 07/30/19 at 13:30; Stop 07/30/19 at 19:29; Status DC Sodium Chloride (Normal Saline Flush) 10 ml 1X PRN PRN IV AP catheter pack; Start 07/30/19 at 13:30; Stop 07/31/19 at 13:29; Status DC Sodium Chloride (Normal Saline Flush) 10 ml 1X PRN PRN IV [employer] catheter pack; Start 07/30/19 at 13:30; Stop 07/31/19 at 13:29; Status DC Sodium Chloride 1,000 ml @ 400 mls/hr Q2H30M PRN IV PATENCY; Start 07/30/19 at 13:26; Stop 07/31/19 at 01:25; Status DC Info (PHARMACY MONITORING -- do not chart) 1 each PRN DAILY PRN MC SEE COMMENTS; Start 07/30/19 at 13:30; Stop 07/30/19 at 13:33; Status DC Info (PHARMACY MONITORING -- do not chart) 1 each PRN DAILY PRN MC SEE COMMENTS; Start 07/30/19 at 13:30; Stop 07/30/19 at 13:34; Status DC Sodium Chloride 90 meq/Potassium Phosphate 19 mmol/ Magnesium Sulfate 12 meq/Calcium Gluconate 15 meq/ Multivitamins 10 ml/Chromium/ Copper/Manganese/ Seleni/Zn 0.5 ml/ Insulin Human Regular 40 unit/ Total Parenteral Nutrition/Amino Acids/Dextrose/ Fat Emulsion Intravenous 1,400 ml @ 58.333 mls/ hr TPN CONT IV Last administered on 07/31/19at 21:54; Start 07/31/19 at 22:00; Stop 08/01/19 at 21:59; Status DC Sodium Chloride 1,000 ml @ 1,000 mls/hr Q1H PRN IV hypotension; Start 08/01/19 at 09:35; Stop 08/01/19 at 15:34; Status DC Albumin Human 200 ml @ 200 mls/hr 1X PRN PRN IV Hypotension; Start 08/01/19 at 09:45; Stop 08/01/19 at 15:44; Status DC Diphenhydramine HCl (Benadryl) 25 mg 1X PRN PRN IV ITCHING; Start 08/01/19 at 09:45; Stop 08/02/19 at 09:44; Status DC Diphenhydramine HCl (Benadryl) 25 mg 1X PRN PRN IV ITCHING; Start 08/01/19 at 09:45; Stop 08/02/19 at 09:44; Status DC Sodium Chloride 1,000 ml @ 400 mls/hr Q2H30M PRN IV PATENCY; Start 08/01/19 at 09:35; Stop 08/01/19 at 21:34; Status DC Info (PHARMACY MONITORING -- do not chart) 1 each PRN DAILY PRN MC SEE COMMENTS; Start 08/01/19 at 09:45; Status Cancel Sodium Chloride 100 meq/Potassium Phosphate 19 mmol/ Magnesium Sulfate 12 me q/Calcium Gluconate 15 meq/ Multivitamins 10 ml/Chromium/ Copper/Manganese/ Seleni/Zn 0.5 ml/ Insulin Human Regular 40 unit/ Potassium Chloride 20 meq/ Total Parenteral Nutrition/Amino Acids/Dextrose/ Fat Emulsion Intravenous 1,400 ml @ 58.333 mls/ hr TPN CONT IV Last administered on 08/01/19at 22:02; Start 08/01/19 at 22:00; Stop 08/02/19 at 21:59; Status DC Furosemide (Lasix) 40 mg 1X ONCE IVP Last administered on 08/01/19at 14:39; Start 08/01/19 at 14:30; Stop 08/01/19 at 14:31; Status DC Metronidazole 100 ml @ 100 mls/hr Q8HRS IV Last administered on 08/09/19at 06:04; Start 08/02/19 at 10:00; Stop 08/09/19 at 08:10; Status DC Sodium Chloride 1,000 ml @ 1,000 mls/hr Q1H PRN IV hypotension; Start 08/02/19 at 08:00; Stop 08/02/19 at 13:59; Status DC Albumin Human 200 ml @ 200 mls/hr 1X PRN PRN IV Hypotension; Start 08/02/19 at 08:00; Stop 08/02/19 at 13:59; Status DC Sodium Chloride 1,000 ml @ 400 mls/hr Q2H30M PRN IV PATENCY; Start 08/02/19 at 08:00; Stop 08/02/19 at 19:59; Status DC Info (PHARMACY MONITORING -- do not chart) 1 each PRN DAILY PRN MC SEE COMMENTS; Start 08/02/19 at 11:30; Status UNV Info (PHARMACY MONITORING -- do not chart) 1 each PRN DAILY PRN MC SEE COMMENTS; Start 08/02/19 at 11:30; Stop 08/04/19 at 12:13; Status DC Sodium Chloride 100 meq/Potassium Phosphate 19 mmol/ Magnesium Sulfate 12 meq/Calcium Gluconate 15 meq/ Multivitamins 10 ml/Chromium/ Copper/Manganese/ Seleni/Zn 0.5 ml/ Insulin Human Regular 40 unit/ Potassium Chloride 20 meq/ Total Parenteral Nutrition/Amino Acids/Dextrose/ Fat Emulsion Intravenous 1,400 ml @ 58.333 mls/ hr TPN CONT IV Last administered on 08/02/19at 21:52; Start 08/02/19 at 22:00; Stop 08/03/19 at 21:59; Status DC Sodium Chloride (Normal Saline Flush) 10 ml QSHIFT PRN IV AFTER MEDS AND BLOOD DRAWS; Start 08/02/19 at 15:00; Stop 08/30/19 at 11:27; Status DC Sodium Chloride (Normal Saline Flush) 10 ml PRN Q5MIN PRN IV AFTER MEDS AND BLOOD DRAWS; Start 08/02/19 at 15:00 Sodium Chloride (Normal Saline Flush) 20 ml PRN Q5MIN PRN IV AFTER MEDS AND BLOOD DRAWS; Start 08/02/19 at 15:00 Sodium Chloride 100 meq/Potassium Phosphate 19 mmol/ Magnesium Sulfate 12 meq/Calcium Gluconate 15 meq/ Multivitamins 10 ml/Chromium/ Copper/Manganese/ Seleni/Zn 0.5 ml/ Insulin Human Regular 40 unit/ Potassium Chloride 20 meq/ Total Parenteral Nutrition/Amino Acids/Dextrose/ Fat Emulsion Intravenous 1,400 ml @ 58.333 mls/ hr TPN CONT IV Last administered on 08/03/19at 21:20; Start 08/03/19 at 22:00; Stop 08/04/19 at 21:59; Status DC Lidocaine HCl (Buffered Lidocaine 1%) 3 ml STK-MED ONCE .ROUTE ; Start 08/03/19 at 13:16; Stop 08/03/19 at 13:16; Status DC Lidocaine HCl (Buffered Lidocaine 1%) 6 ml 1X ONCE INJ Last administered on 08/03/19at 13:45; Start 08/03/19 at 13:30; Stop 08/03/19 at 13:31; Status DC Albumin Human 100 ml @ 100 mls/hr 1X ONCE IV Last administered on 08/03/19at 15:41; Start 08/03/19 at 15:00; Stop 08/03/19 at 15:59; Status DC Albumin Human 50 ml @ 50 mls/hr 1X ONCE IV Last administered on 08/03/19at 15:00; Start 08/03/19 at 15:00; Stop 08/03/19 at 15:59; Status DC Info (PHARMACY MONITORING -- do not chart) 1 each PRN DAILY PRN MC SEE COMMENTS; Start 08/04/19 at 11:30; Status Cancel Info (PHARMACY MONITORING -- do not chart) 1 each PRN DAILY PRN MC SEE COMMENTS; Start 08/04/19 at 11:30; Status UNV Sodium Chloride 100 meq/Potassium Phosphate 10 mmol/ Magnesium Sulfate 12 meq/Calcium Gluconate 15 meq/ Multivitamins 10 ml/Chromium/ Copper/Manganese/ Seleni/Zn 0.5 ml/ Insulin Human Regular 35 unit/ Potassium Chloride 20 meq/ Total Parenteral Nutrition/Amino Acids/Dextrose/ Fat Emulsion Intravenous 1,400 ml @ 58.333 mls/ hr TPN CONT IV Last administered on 08/04/19at 22:10; Start 08/04/19 at 22:00; Stop 08/05/19 at 21:59; Status DC Sodium Chloride 100 meq/Potassium Phosphate 5 mmol/ Magnesium Sulfate 12 meq/Calcium Gluconate 15 meq/ Multivitamins 10 ml/Chromium/ Copper/Manganese/ Seleni/Zn 0.5 ml/ Insulin Human Regular 35 unit/ Potassium Chloride 20 meq/ Total Parenteral Nutrition/Amino Acids/Dextrose/ Fat Emulsion Intravenous 1,400 ml @ 58.333 mls/ hr TPN CONT IV Last administered on 08/05/19at 22:59; Start 08/05/19 at 22:00; Stop 08/06/19 at 21:59; Status DC Sodium Chloride 1,000 ml @ 1,000 mls/hr Q1H PRN IV hypotension; Start 08/06/19 at 08:27; Stop 08/06/19 at 14:26; Status DC Albumin Human 200 ml @ 200 mls/hr 1X PRN PRN IV Hypotension Last administered on 08/06/19at 09:18; Start 08/06/19 at 08:30; Stop 08/06/19 at 14:29; Status DC Sodium Chloride 1,000 ml @ 400 mls/hr Q2H30M PRN IV PATENCY; Start 08/06/19 at 08:27; Stop 08/06/19 at 20:26; Status DC Info (PHARMACY MONITORING -- do not chart) 1 each PRN DAILY PRN MC SEE COMMENTS; Start 08/06/19 at 08:30; Status Cancel Info (PHARMACY MONITORING -- do not chart) 1 each PRN DAILY PRN MC SEE COMMENTS; Start 08/06/19 at 08:30; Stop 08/14/19 at 13:10; Status DC Sodium Chloride 100 meq/Potassium Chloride 40 meq/ Magnesium Sulfate 15 meq/Calcium Gluconate 15 meq/ Multivitamins 10 ml/Chromium/ Copper/Manganese/ Seleni/Zn 0.5 ml/ Insulin Human Regular 35 unit/ Total Parenteral Nutrition /Amino Acids/Dextrose/ Fat Emulsion Intravenous 1,400 ml @ 58.333 mls/ hr TPN CONT IV Last administered on 08/06/19at 22:00; Start 08/06/19 at 22:00; Stop 08/07/19 at 21:59; Status DC Potassium Chloride/Water 100 ml @ 100 mls/hr 1X ONCE IV Last administered on 08/06/19at 17:28; Start 08/06/19 at 14:45; Stop 08/06/19 at 15:44; Status DC Sodium Chloride 100 meq/Potassium Chloride 40 meq/ Magnesium Sulfate 15 meq/Calcium Gluconate 15 meq/ Multivitamins 10 ml/Chromium/ Copper/Manganese/ Seleni/Zn 0.5 ml/ Insulin Human Regular 35 unit/ Total Parenteral Nutrition/Amino Acids/Dextrose/ Fat Emulsion Intravenous 1,400 ml @ 58.333 mls/ hr TPN CONT IV Last administered on 08/07/19at 22:46; Start 08/07/19 at 22:00; Stop 08/08/19 at 21:59; Status DC Sodium Chloride 100 meq/Potassium Chloride 40 meq/ Magnesium Sulfate 20 meq/Calcium Gluconate 15 meq/ Multivitamins 10 ml/Chromium/ Copper/Manganese/ Seleni/Zn 0.5 ml/ Insulin Human Regular 35 unit/ Total Parenteral Nutrition/Amino Acids/Dextrose/ Fat Emulsion Intravenous 1,400 ml @ 58.333 mls/ hr TPN CONT IV Last administered on 08/08/19at 22:31; Start 08/08/19 at 22:00; Stop 08/09/19 at 21:59; Status DC Fentanyl Citrate (Fentanyl 2ml Vial) 50 mcg PRN Q2HR PRN IVP PAIN Last administered on 08/15/19at 13:32; Start 08/08/19 at 21:00; Stop 08/16/19 at 12:53; Status DC Fentanyl Citrate (Fentanyl 2ml Vial) 25 mcg PRN Q2HR PRN IVP PAIN; Start 08/08/19 at 21:00; Stop 08/16/19 at 12:54; Status DC Enoxaparin Sodium (Lovenox 100mg Syringe) 100 mg Q12HR SQ ; Start 08/09/19 at 21:00; Status UNV Amino Acids/ Glycerin/ Electrolytes 1,000 ml @ 75 mls/hr [id number] IV ; Start 08/08/19 at 21:15; Status UNV Sodium Chloride 1,000 ml @ 1,000 mls/hr Q1H PRN IV hypotension; Start 08/09/19 at 07:56; Stop 08/09/19 at 13:55; Status DC Albumin Human 200 ml @ 200 mls/hr 1X PRN PRN IV Hypotension Last administered on 08/09/19at 08:40; Start 08/09/19 at 08:00; Stop 08/09/19 at 13:59; Status DC Sodium Chloride 1,000 ml @ 400 mls/hr Q2H30M PRN IV PATENCY; Start 08/09/19 at 07:56; Stop 08/09/19 at 19:55; Status DC Info (PHARMACY MONITORING -- do not chart) 1 each PRN DAILY PRN MC SEE COMMENTS; Start 08/09/19 at 08:00; Status UNV Info (PHARMACY MONITORING -- do not chart) 1 each PRN DAILY PRN MC SEE COMMENTS; Start 08/09/19 at 08:00; Status UNV Daptomycin 430 mg/ Sodium Chloride 50 ml @ 100 mls/hr Q24H IV Last administered on 08/09/19at 12:35; Start 08/09/19 at 09:00; Stop 08/09/19 at 12:49; Status DC Sodium Chloride 100 meq/Potassium Chloride 40 meq/ Magnesium Sulfate 20 meq/Calcium Gluconate 15 meq/ Multivitamins 10 ml/Chromium/ Copper/Manganese/ Seleni/Zn 0.5 ml/ Insulin Human Regular 35 unit/ Total Parenteral Nutrition/Amino Acids/Dextrose/ Fat Emulsion Intravenous 1,400 ml @ 58.333 mls/ hr TPN CONT IV Last administered on 08/09/19at 21:26; Start 08/09/19 at 22:00; Stop 08/10/19 at 21:59; Status DC Daptomycin 430 mg/ Sodium Chloride 50 ml @ 100 mls/hr Q48H IV ; Start 08/11/19 at 09:00; Stop 08/10/19 at 11:55; Status DC Sodium Chloride 100 meq/Potassium Chloride 40 meq/ Magnesium Sulfate 20 meq/Calcium Gluconate 15 meq/ Multivitamins 10 ml/Chromium/ Copper/Manganese/ Seleni/Zn 0.5 ml/ Insulin Human Regular 35 unit/ Total Parenteral Nutrition/Amino Acids/Dextrose/ Fat Emulsion Intravenous 1,400 ml @ 58.333 mls/ hr TPN CONT IV Last administered on 08/10/19at 22:27; Start 08/10/19 at 22:00; Stop 08/11/19 at 21:59; Status DC Daptomycin 430 mg/ Sodium Chloride 50 ml @ 100 mls/hr Q24H IV Last administered on 08/12/19at 15:07; Start 08/10/19 at 13:00; Stop 08/13/19 at 13:15; Status DC Sodium Chloride 100 meq/Potassium Chloride 40 meq/ Magnesium Sulfate 20 meq/Calcium Gluconate 10 meq/ Multivitamins 10 ml/Chromium/ Copper/Manganese/ Seleni/Zn 0.5 ml/ Insulin Human Regular 35 unit/ Total Parenteral Nutrition/Amino Acids/Dextrose/ Fat Emulsion Intravenous 1,400 ml @ 58.333 mls/ hr TPN CONT IV Last administered on 08/12/19at 00:06; Start 08/11/19 at 22:00; Stop 08/12/19 at 21:59; Status DC Alteplase, Recombinant (Cathflo For Central Catheter Clearance) 1 mg 1X ONCE INT CAT Last administered on 08/12/19at 11:44; Start 08/12/19 at 10:45; Stop 08/12/19 at 10:46; Status DC Ondansetron HCl (Zofran) 4 mg PRN Q6HRS PRN IV NAUSEA/VOMITING; Start 08/15/19 at 07:00; Stop 08/16/19 at 06:59; Status DC Fentanyl Citrate (Fentanyl 2ml Vial) 25 mcg PRN Q5MIN PRN IV MILD PAIN 1-3; Start 08/15/19 at 07:00; Stop 08/16/19 at 06:59; Status DC Fentanyl Citrate (Fentanyl 2ml Vial) 50 mcg PRN Q5MIN PRN IV MODERATE TO SEVERE PAIN Last administered on 08/15/19at 10:17; Start 08/15/19 at 07:00; Stop 08/16/19 at 06:59; Status DC Ringer's Solution 1,000 ml @ 30 mls/hr Q24H IV ; Start 08/15/19 at 07:00; Stop 08/15/19 at 18:59; Status DC Lidocaine HCl (Xylocaine-Mpf 1% 2ml Vial) 2 ml PRN 1X PRN ID PRIOR TO IV START; Start 08/15/19 at 07:00; Stop 08/16/19 at 06:59; Status DC Prochlorperazine Edisylate (Compazine) 5 mg PACU PRN PRN IV NAUSEA, MRX1; Start 08/15/19 at 07:00; Stop 08/16/19 at 06:59; Status DC Sodium Acetate 50 meq/Potassium Acetate 55 meq/ Magnesium Sulfate 20 meq/Calcium Gluconate 10 meq/ Multivitamins 10 ml/Chromium/ Copper/Manganese/ Seleni/Zn 0.5 ml/ Insulin Human Regular 35 unit/ Total Parenteral Nutrition/Amino Acids/ Dextrose/ Fat Emulsion Intravenous 1,400 ml @ 58.333 mls/ hr TPN CONT IV ; Start 08/12/19 at 22:00; Stop 08/12/19 at 14:15; Status DC Sodium Acetate 50 meq/Potassium Acetate 55 meq/ Magnesium Sulfate 20 meq/Calcium Gluconate 10 meq/ Multivitamins 10 ml/Chromium/ Copper/Manganese/ Seleni/Zn 0.5 ml/ Insulin Human Regular 35 unit/ Total Parenteral Nutrition/Amino Acids/Dextrose/ Fat Emulsion Intravenous 1,800 ml @ 75 mls/hr TPN CONT IV Last administered on 08/12/19at 22:38; Start 08/12/19 at 22:00; Stop 08/13/19 at 21:59; Status DC Sodium Chloride 1,000 ml @ 1,000 mls/hr Q1H PRN IV hypotension; Start 08/12/19 at 15:31; Stop 08/12/19 at 21:30; Status DC Diphenhydramine HCl (Benadryl) 25 mg 1X PRN PRN IV ITCHING; Start 08/12/19 at 15:45; Stop 08/13/19 at 15:44; Status DC Diphenhydramine HCl (Benadryl) 25 mg 1X PRN PRN IV ITCHING; Start 08/12/19 at 15:45; Stop 08/13/19 at 15:44; Status DC Sodium Chloride 1,000 ml @ 400 mls/hr Q2H30M PRN IV PATENCY; Start 08/12/19 at 15:31; Stop 08/13/19 at 03:30; Status DC Info (PHARMACY MONITORING -- do not chart) 1 each PRN DAILY PRN MC SEE COMMENTS; Start 08/12/19 at 15:45; Stop 09/13/19 at 14:14; Status DC Sodium Acetate 50 meq/Potassium Acetate 55 meq/ Magnesium Sulfate 20 meq/Calcium Gluconate 10 meq/ Multivitamins 10 ml/Chromium/ Copper/Manganese/ Seleni/Zn 0.5 ml/ Insulin Human Regular 35 unit/ Total Parenteral Nutrition/Amino Acids/D extrose/ Fat Emulsion Intravenous 1,800 ml @ 75 mls/hr TPN CONT IV Last administered on 08/13/19at 22:03; Start 08/13/19 at 22:00; Stop 08/14/19 at 21:59; Status DC Daptomycin 430 mg/ Sodium Chloride 50 ml @ 100 mls/hr Q24H IV Last administered on 08/18/19at 13:00; Start 08/13/19 at 13:00; Stop 08/18/19 at 20:58; Status DC Heparin Sodium (Porcine) 1000 unit/Sodium Chloride 1,001 ml @ 1,001 mls/hr 1X ONCE IRR ; Start 08/15/19 at 06:00; Stop 08/15/19 at 06:59; Status DC Potassium Acetate 55 meq/Magnesium Sulfate 20 meq/ Calcium Gluconate 10 meq/ Multivitamins 10 ml/Chromium/ Copper/Manganese/ Seleni/Zn 0.5 ml/ Insulin Human Regular 35 unit/ Total Parenteral Nutrition/Amino Acids/Dextrose/ Fat Emulsion Intravenous 1,920 ml @ 80 mls/hr TPN CONT IV Last administered on 08/14/19at 22:10; Start 08/14/19 at 22:00; Stop 08/15/19 at 21:59; Status DC Dexamethasone Sodium Phosphate (Decadron) 4 mg STK-MED ONCE .ROUTE ; Start 08/15/19 at 10:56; Stop 08/15/19 at 10:57; Status DC Ondansetron HCl (Zofran) 4 mg STK-MED ONCE .ROUTE ; Start 08/15/19 at 10:56; Stop 08/15/19 at 10:57; Status DC Rocuronium [place] (Zemuron) 50 mg STK-MED ONCE .ROUTE ; Start 08/15/19 at 10:56; Stop 08/15/19 at 10:57; Status DC Fentanyl Citrate (Fentanyl 2ml Vial) 100 mcg STK-MED ONCE .ROUTE ; Start 08/15/19 at 10:56; Stop 08/15/19 at 10:57; Status DC Bupivacaine HCl/ Epinephrine Bitart (Sensorcain-Epi 0.5%-1:412960 Mpf) 30 ml STK-MED ONCE .ROUTE Last administered on 08/15/19at 12:01; Start 08/15/19 at 10:58; Stop 08/15/19 at 10:58; Status DC Cellulose (Surgicel Hemostat 2x14) 1 each STK-MED ONCE .ROUTE ; Start 08/15/19 at 10:58; Stop 08/15/19 at 10:59; Status DC Iohexol (Omnipaque 300 Mg/ml) 50 ml STK-MED ONCE .ROUTE ; Start 08/15/19 at 10:58; Stop 08/15/19 at 10:59; Status DC Cellulose (Surgicel Hemostat 4x8) 1 each STK-MED ONCE .ROUTE ; Start 08/15/19 at 10:58; Stop 08/15/19 at 10:59; Status DC Bisacodyl (Dulcolax Supp) 10 mg STK-MED ONCE .ROUTE ; Start 08/15/19 at 10:59; Stop 08/15/19 at 10:59; Status DC Heparin Sodium (Porcine) 1000 unit/Sodium Chloride 1,001 ml @ 1,001 mls/hr 1X ONCE IRR ; Start 08/15/19 at 12:00; Stop 08/15/19 at 12:59; Status DC Propofol 20 ml @ As Directed STK-MED ONCE IV ; Start 08/15/19 at 11:05; Stop 08/15/19 at 11:05; Status DC Sevoflurane (Ultane) 90 ml STK-MED ONCE IH ; Start 08/15/19 at 11:05; Stop 08/15/19 at 11:05; Status DC Sevoflurane (Ultane) 60 ml STK-MED ONCE IH ; Start 08/15/19 at 12:26; Stop 08/15/19 at 12:27; Status DC Propofol 20 ml @ As Directed STK-MED ONCE IV ; Start 08/15/19 at 12:26; Stop 08/15/19 at 12:27; Status DC Phenylephrine HCl (PHENYLEPHRINE in 0.9% NACL PF) 1 mg STK-MED ONCE IV ; Start 08/15/19 at 12:34; Stop 08/15/19 at 12:34; Status DC Heparin Sodium (Porcine) (Heparin Sodium) 5,000 unit Q12HR SQ Last administered on 08/24/19at 20:57; Start 08/15/19 at 21:00; Stop 08/25/19 at 09:59; Status DC Sodium Chloride (Normal Saline Flush) 3 ml QSHIFT PRN IV AFTER MEDS AND BLOOD DRAWS; Start 08/15/19 at 13:45; Status Cancel Naloxone HCl (Narcan) 0.4 mg PRN Q2MIN PRN IV SEE INSTRUCTIONS Last administered on 09/24/19at 15:15; Start 08/15/19 at 13:45; Stop 10/19/19 at 16:00; Status DC Sodium Chloride 1,000 ml @ 25 mls/hr Q24H IV Last administered on 09/13/19at 13:37; Start 08/15/19 at 13:37; Stop 09/16/19 at 13:09; Status DC Naloxone HCl (Narcan) 0.4 mg PRN Q2MIN PRN IV SEE INSTRUCTIONS; Start 08/15/19 at 14:30; Status UNV Sodium Chloride 1,000 ml @ 25 mls/hr Q24H IV ; Start 08/15/19 at 14:30; Status UNV Hydromorphone HCl 30 ml @ 0 mls/hr CONT PRN PRN IV PER PROTOCOL Last admini stered on 08/20/19at 16:08; Start 08/15/19 at 14:30; Stop 08/22/19 at 08:55; Status DC Potassium Acetate 55 meq/Magnesium Sulfate 20 meq/ Calcium Gluconate 10 meq/ Multivitamins 10 ml/Chromium/ Copper/Manganese/ Seleni/Zn 0.5 ml/ Insulin Human Regular 35 unit/ Total Parenteral Nutrition/Amino Acids/Dextrose/ Fat Emulsion Intravenous 1,920 ml @ 80 mls/hr TPN CONT IV Last administered on 08/15/19at 22:01; Start 08/15/19 at 22:00; Stop 08/16/19 at 21:59; Status DC Bumetanide (Bumex) 2 mg [id number] IV Last administered on 08/19/19at 13:50; Start 08/16/19 at 14:00; Stop 08/20/19 at 14:10; Status DC Meropenem 1 gm/ Sodium Chloride 100 ml @ 200 mls/hr Q8HRS IV Last administered on 09/09/19at 05:53; Start 08/16/19 at 14:00; Stop 09/09/19 at 09:31; Status DC Potassium Acetate 55 meq/Magnesium Sulfate 20 meq/ Calcium Gluconate 10 meq/ Multivitamins 10 ml/Chromium/ Copper/Manganese/ Seleni/Zn 0.5 ml/ Insulin Human Regular 35 unit/ Total Parenteral Nutrition/Amino Acids/Dextrose/ Fat Emulsion Intravenous 1,920 ml @ 80 mls/hr TPN CONT IV Last administered on 08/16/19at 22:02; Start 08/16/19 at 22:00; Stop 08/17/19 at 21:59; Status DC Hydromorphone HCl (Dilaudid Standard TEST DEPARTMENT HELPER) 12 mg STK-MED ONCE IV ; Start 08/15/19 at 14:35; Stop 08/16/19 at 13:53; Status DC Artificial Tears (Artificial Tears) 1 drop PRN Q15MIN PRN OU DRY EYE Last administered on 10/11/19at 21:17; Start 08/17/19 at 05:30 Hydromorphone HCl (Dilaudid Standard TEST DEPARTMENT HELPER) 12 mg STK-MED ONCE IV ; Start 08/16/19 at 12:05; Stop 08/17/19 at 09:15; Status DC Potassium Acetate 65 meq/Magnesium Sulfate 20 meq/ Calcium Gluconate 10 meq/ Multivitamins 10 ml/Chromium/ Copper/Manganese/ Seleni/Zn 0.5 ml/ Insulin Human Regular 30 unit/ Total Parenteral Nutrition/Amino Acids/Dextrose/ Fat Emulsion Intravenous 1,920 ml @ 80 mls/hr TPN CONT IV Last administered on 08/17/19at 22:22; Start 08/17/19 at 22:00; Stop 08/18/19 at 21:59; Status DC Cyclobenzaprine HCl (Flexeril) 10 mg PRN Q6HRS PRN PO MUSCLE SPASMS Last administered on 10/28/19at 19:12; Start 08/18/19 at 10:45 Potassium Acetate 55 meq/Magnesium Sulfate 20 meq/ Calcium Gluconate 10 meq/ Multivitamins 10 ml/Chromium/ Copper/Manganese/ Seleni/Zn 0.5 ml/ Insulin Human Regular 30 unit/ Total Parenteral Nutrition/Amino Acids/Dextrose/ Fat Emulsion Intravenous 1,920 ml @ 80 mls/hr TPN CONT IV Last administered on 08/19/19at 01:00; Start 08/18/19 at 22:00; Stop 08/19/19 at 21:59; Status DC Magnesium Sulfate 50 ml @ 25 mls/hr 1X ONCE IV Last administered on 08/18/19at 17:18; Start 08/18/19 at 12:45; Stop 08/18/19 at 14:44; Status DC Potassium Chloride/Water 100 ml @ 100 mls/hr 1X ONCE IV Last administered on 08/19/19at 11:27; Start 08/19/19 at 12:00; Stop 08/19/19 at 12:59; Status DC Hydromorphone HCl (Dilaudid Standard TEST DEPARTMENT HELPER) 12 mg STK-MED ONCE IV ; Start 08/17/19 at 10:50; Stop 08/19/19 at 11:02; Status DC Hydromorphone HCl (Dilaudid Standard TEST DEPARTMENT HELPER) 12 mg STK-MED ONCE IV ; Start 08/18/19 at 13:47; Stop 08/19/19 at 11:03; Status DC Potassium Acetate 30 meq/Magnesium Sulfate 20 meq/ Calcium Gluconate 10 meq/ Multivitamins 10 ml/Chromium/ Copper/Manganese/ Seleni/Zn 0.5 ml/ Insulin Human Regular 30 unit/ Potassium Chloride 30 meq/ Total Parenteral Nutrition/Amino Acids/Dextrose/ Fat Emulsion Intravenous 1,920 ml @ 80 mls/hr TPN CONT IV Last administered on 08/19/19at 22:34; Start 08/19/19 at 22:00; Stop 08/20/19 at 21:59; Status DC Potassium Chloride/Water 100 ml @ 100 mls/hr Q1H IV Last administered on 08/20/19at 13:05; Start 08/20/19 at 07:00; Stop 08/20/19 at 10:59; Status DC Magnesium Sulfate 50 ml @ 25 mls/hr 1X ONCE IV Last administered on 08/20/19at 10:34; Start 08/20/19 at 10:30; Stop 08/20/19 at 12:29; Status DC Potassium Chloride 75 meq/ Magnesium Sulfate 20 meq/Calcium Gluconate 10 meq/ Multivitamins 10 ml/Chromium/ Copper/Manganese/ Seleni/Zn 0.5 ml/ Insulin Human Regular 30 unit/ Total Parenteral Nutrition/Amino Acids/Dextrose/ Fat Emulsion Intravenous 1,920 ml @ 80 mls/hr TPN CONT IV Last administered on 08/20/19at 21:51; Start 08/20/19 at 22:00; Stop 08/21/19 at 22:00; Status DC Potassium Chloride 75 meq/ Magnesium Sulfate 20 meq/Calcium Gluconate 10 meq/ Multivitamins 10 ml/Chromium/ Copper/Manganese/ Seleni/Zn 0.5 ml/ Insulin Human Regular 25 unit/ Total Parenteral Nutrition/Amino Acids/Dextrose/ Fat Emulsion Intravenous 1,920 ml @ 80 mls/hr TPN CONT IV Last administered on 08/21/19at 22:04; Start 08/21/19 at 22:00; Stop 08/22/19 at 21:59; Status DC Hydromorphone HCl (Dilaudid) 0.4 mg PRN Q4HRS PRN IVP PAIN Last administered on 08/22/19at 10:57; Start 08/22/19 at 09:00; Stop 08/22/19 at 18:59; Status DC Micafungin Sodium 100 mg/Dextrose 100 ml @ 100 mls/hr Q24H IV Last administered on 09/13/19at 12:17; Start 08/22/19 at 11:00; Stop 09/14/19 at 09:59; Status DC Daptomycin 485 mg/ Sodium Chloride 50 ml @ 100 mls/hr Q24H IV Last administered on 08/29/19at 13:10; Start 08/22/19 at 11:00; Stop 08/30/19 at 07:44; Status DC Potassium Chloride 75 meq/ Magnesium Sulfate 15 meq/Calcium Gluconate 8 meq/ Multivitamins 10 ml/Chromium/ Copper/Manganese/ Seleni/Zn 0.5 ml/ Insulin Human Regular 25 unit/ Total Parenteral Nutrition/Amino Acids/Dextrose/ Fat Emulsion Intravenous 1,920 ml @ 80 mls/hr TPN CONT IV Last administered on 08/22/19at 23:08; Start 08/22/19 at 22:00; Stop 08/23/19 at 21:59; Status DC Haloperidol Lactate (Haldol Inj) 3 mg 1X ONCE IVP Last administered on 08/22/19at 14:37; Start 08/22/19 at 14:30; Stop 08/22/19 at 14:31; Status DC Hydromorphone HCl (Dilaudid) 1 mg PRN Q4HRS PRN IVP PAIN Last administered on 09/05/19at 06:25; Start 08/22/19 at 19:00; Stop 09/05/19 at 17:10; Status DC Potassium Chloride 75 meq/ Magnesium Sulfate 15 meq/Calcium Gluconate 8 meq/ Multivitamins 10 ml/Chromium/ Copper/Manganese/ Seleni/Zn 0.5 ml/ Insulin Human Regular 20 unit/ Total Parenteral Nutrition/Amino Acids/Dextrose/ Fat Emulsion Intravenous 1,920 ml @ 80 mls/hr TPN CONT IV Last administered on 08/23/19at 22:10; Start 08/23/19 at 22:00; Stop 08/24/19 at 21:59; Status DC Lidocaine HCl (Buffered Lidocaine 1%) 3 ml STK-MED ONCE .ROUTE ; Start 08/24/19 at 11:31; Stop 08/24/19 at 11:31; Status DC Lidocaine HCl (Buffered Lidocaine 1%) 3 ml STK-MED ONCE .ROUTE ; Start 08/24/19 at 12:28; Stop 08/24/19 at 12:29; Status DC Lidocaine HCl (Buffered Lidocaine 1%) 6 ml 1X ONCE INJ Last administered on 08/24/19at 12:53; Start 08/24/19 at 12:45; Stop 08/24/19 at 12:46; Status DC Potassium Chloride 75 meq/ Magnesium Sulfate 15 meq/Calcium Gluconate 8 meq/ Multivitamins 10 ml/Chromium/ Copper/Manganese/ Seleni/Zn 0.5 ml/ Insulin Human Regular 20 unit/ Total Parenteral Nutrition/Amino Acids/Dextrose/ Fat Emulsion Intravenous 1,920 ml @ 80 mls/hr TPN CONT IV Last administered on 08/24/19at 22:00; Start 08/24/19 at 22:00; Stop 08/25/19 at 21:59; Status DC Potassium Chloride 75 meq/ Magnesium Sulfate 15 meq/Calcium Gluconate 8 meq/ Multivitamins 10 ml/Chromium/ Copper/Manganese/ Seleni/Zn 0.5 ml/ Insulin Human Regular 15 unit/ Total Parenteral Nutrition/Amino Acids/Dextrose/ Fat Emulsion Intravenous 1,920 ml @ 80 mls/hr TPN CONT IV Last administered on 08/25/19at 22:28; Start 08/25/19 at 22:00; Stop 08/26/19 at 21:59; Status DC Vecuronium [place] (Norcuron Bolus) 6 mg PRN Q6HRS PRN IV VENT ASYNCHRONY; Start 08/25/19 at 19:15; Stop 08/25/19 at 19:35; Status DC Bumetanide (Bumex) 2 mg 1X ONCE IV Last administered on 08/25/19at 22:09; Start 08/25/19 at 19:45; Stop 08/25/19 at 19:46; Status DC Lidocaine HCl (Buffered Lidocaine 1%) 3 ml STK-MED ONCE .ROUTE ; Start 08/26/19 at 07:59; Stop 08/26/19 at 07:59; Status DC Midazolam HCl (Versed) 5 mg STK-MED ONCE .ROUTE ; Start 08/26/19 at 08:36; Stop 08/26/19 at 08:36; Status DC Fentanyl Citrate (Fentanyl 5ml Vial) 250 mcg STK-MED ONCE .ROUTE ; Start 08/26/19 at 08:36; Stop 08/26/19 at 08:37; Status DC Lidocaine HCl (Buffered Lidocaine 1%) 3 ml 1X ONCE IJ Last administered on 08/26/19at 09:30; Start 08/26/19 at 09:15; Stop 08/26/19 at 09:16; Status DC Midazolam HCl (Versed) 5 mg 1X ONCE IV Last administered on 08/26/19at 09:30; Start 08/26/19 at 09:15; Stop 08/26/19 at 09:16; Status DC Fentanyl Citrate (Fentanyl 5ml Vial) 250 mcg 1X ONCE IV Last administered on 08/26/19at 09:30; Start 08/26/19 at 09:15; Stop 08/26/19 at 09:16; Status DC Bumetanide (Bumex) 2 mg DAILY IV Last administered on 09/05/19at 08:07; Start 08/26/19 at 10:00; Stop 09/05/19 at 17:15; Status DC Potassium Chloride 75 meq/ Magnesium Sulfate 15 meq/ Multivitamins 10 ml/Chromium/ Copper/Manganese/ Seleni/Zn 0.5 ml/ Insulin Human Regular 15 unit/ Total Parenteral Nutrition/Amino Acids/Dextrose/ Fat Emulsion Intravenous 1,920 ml @ 80 mls/hr TPN CONT IV Last administered on 08/26/19at 21:59; Start 08/26/19 at 22:00; Stop 08/27/19 at 21:59; Status DC Metoclopramide HCl (Reglan Vial) 10 mg PRN Q3HRS PRN IVP NAUSEA/VOMITING-3rd choice Last administered on 09/01/19at 04:25; Start 08/27/19 at 16:45 Potassium Chloride 75 meq/ Magnesium Sulfate 15 meq/ Multivitamins 10 ml/Chromium/ Copper/Manganese/ Seleni/Zn 0.5 ml/ Insulin Human Regular 15 unit/ Total Parenteral Nutrition/Amino Acids/Dextrose/ Fat Emulsion Intravenous 1,920 ml @ 80 mls/hr TPN CONT IV Last administered on 08/27/19at 22:41; Start 08/27/19 at 22:00; Stop 08/28/19 at 21:59; Status DC Magnesium Sulfate 50 ml @ 25 mls/hr 1X ONCE IV Last administered on 08/28/19at 10:44; Start 08/28/19 at 09:00; Stop 08/28/19 at 10:59; Status DC Potassium Chloride/Water 100 ml @ 100 mls/hr 1X ONCE IV Last administered on 08/28/19at 09:37; Start 08/28/19 at 09:00; Stop 08/28/19 at 09:59; Status DC Duloxetine HCl (Cymbalta) 30 mg DAILY PO Last administered on 08/29/19at 09:48; Start 08/28/19 at 14:00; Stop 08/31/19 at 10:25; Status DC Potassium Chloride 80 meq/ Magnesium Sulfate 20 meq/ Multivitamins 10 ml/Chromium/ Copper/Manganese/ Seleni/Zn 0.5 ml/ Insulin Human Regular 15 unit/ Total Parenteral Nutrition/Amino Acids/Dextrose/ Fat Emulsion Intravenous 1,920 ml @ 80 mls/hr TPN CONT IV Last administered on 08/28/19at 21:42; Start 08/28/19 at 22:00; Stop 08/29/19 at 21:59; Status DC Potassium Chloride 80 meq/ Magnesium Sulfate 20 meq/ Multivitamins 10 ml/Chromium/ Copper/Manganese/ Seleni/Zn 0.5 ml/ Insulin Human Regular 15 unit/ Total Parenteral Nutrition/Amino Acids/Dextrose/ Fat Emulsion Intravenous 1,920 ml @ 80 mls/hr TPN CONT IV Last administered on 08/29/19at 22:20; Start 08/29/19 at 22:00; Stop 08/30/19 at 21:59; Status DC Lidocaine HCl (Buffered Lidocaine 1%) 3 ml STK-MED ONCE .ROUTE ; Start 08/30/19 at 09:54; Stop 08/30/19 at 09:55; Status DC Hydromorphone HCl (Dilaudid Standard TEST DEPARTMENT HELPER) 12 mg STK-MED ONCE IV ; Start 08/19/19 at 15:50; Stop 08/30/19 at 11:24; Status DC Potassium Chloride 80 meq/ Magnesium Sulfate 20 meq/ Multivitamins 10 ml/Chromium/ Copper/Manganese/ Seleni/Zn 0.5 ml/ Insulin Human Regular 15 unit/ Total Parenteral Nutrition/Amino Acids/Dextrose/ Fat Emulsion Intravenous 1,920 ml @ 80 mls/hr TPN CONT IV Last administered on 08/30/19at 21:40; Start 08/30/19 at 22:00; Stop 08/31/19 at 21:59; Status DC Lidocaine HCl (Buffered Lidocaine 1%) 6 ml 1X ONCE INJ Last administered on 08/30/19at 14:15; Start 08/30/19 at 14:15; Stop 08/30/19 at 14:16; Status DC Potassium Chloride 80 meq/ Magnesium Sulfate 20 meq/ Multivitamins 10 ml/Chromium/ Copper/Manganese/ Seleni/Zn 1 ml/ Insulin Human Regular 15 unit/ Total Parenteral Nutrition/Amino Acids/Dextrose/ Fat Emulsion Intravenous 1,920 ml @ 80 mls/hr TPN CONT IV Last administered on 08/31/19at 22:04; Start 08/31/19 at 22:00; Stop 09/01/19 at 21:59; Status DC Potassium Chloride/Water 100 ml @ 100 mls/hr 1X ONCE IV Last administered on 09/01/19at 11:34; Start 09/01/19 at 11:00; Stop 09/01/19 at 11:59; Status DC Potassium Chloride 90 meq/ Magnesium Sulfate 20 meq/ Multivitamins 10 ml/Chromium/ Copper/Manganese/ Seleni/Zn 1 ml/ Insulin Human Regular 15 unit/ Total Parenteral Nutrition/Amino Acids/Dextrose/ Fat Emulsion Intravenous 1,920 ml @ 80 mls/hr TPN CONT IV Last administered on 09/01/19at 22:57; Start 09/01/19 at 22:00; Stop 09/02/19 at 21:59; Status DC Potassium Chloride 90 meq/ Magnesium Sulfate 20 meq/ Multivitamins 10 ml/Chromium/ Copper/Manganese/ Seleni/Zn 1 ml/ Insulin Human Regular 15 unit/ Total Parenteral Nutrition/Amino Acids/Dextrose/ Fat Emulsion Intravenous 1,920 ml @ 80 mls/hr TPN CONT IV Last administered on 09/02/19at 22:48; Start 09/02/19 at 22:00; Stop 09/03/19 at 21:59; Status DC Potassium Chloride 90 meq/ Magnesium Sulfate 20 meq/ Multivitamins 10 ml/Chromium/ Copper/Manganese/ Seleni/Zn 1 ml/ Insulin Human Regular 15 unit/ Total Parenteral Nutrition/Amino Acids/Dextrose/ Fat Emulsion Intravenous 1,890 ml @ 78.75 mls/ hr TPN CONT IV Last administered on 09/03/19at 22:15; Start 09/03/19 at 22:00; Stop 09/04/19 at 21:59; Status DC Linezolid/Dextrose 300 ml @ 300 mls/hr Q12HR IV Last administered on 09/06/19at 21:08; Start 09/04/19 at 09:00; Stop 09/07/19 at 08:11; Status DC Daptomycin 450 mg/ Sodium Chloride 50 ml @ 100 mls/hr Q24H IV Last administered on 09/07/19at 09:25; Start 09/04/19 at 09:00; Stop 09/08/19 at 08:30; Status DC Potassium Chloride 90 meq/ Magnesium Sulfate 20 meq/ Multivitamins 10 ml/Chromium/ Copper/Manganese/ Seleni/Zn 1 ml/ Insulin Human Regular 15 unit/ Total Parenteral Nutrition/Amino Acids/Dextrose/ Fat Emulsion Intravenous 1,890 ml @ 78.75 mls/ hr TPN CONT IV Last administered on 09/04/19at 21:34; Start 09/04/19 at 22:00; Stop 09/05/19 at 21:59; Status DC Lorazepam (Ativan Inj) 2 mg STK-MED ONCE .ROUTE ; Start 09/04/19 at 14:58; Stop 09/04/19 at 14:58; Status DC Metoprolol Tartrate (Lopressor Vial) 5 mg 1X ONCE IVP Last administered on 09/04/19at 15:31; Start 09/04/19 at 15:15; Stop 09/04/19 at 15:16; Status DC Lorazepam (Ativan Inj) 2 mg 1X ONCE IVP Last administered on 09/04/19at 15:30; Start 09/04/19 at 15:15; Stop 09/04/19 at 15:16; Status DC Enoxaparin Sodium (Lovenox 40mg Syringe) 40 mg Q24H SQ Last administered on 09/23/19at 17:44; Start 09/04/19 at 17:00; Stop 09/25/19 at 06:50; Status DC Lorazepam (Ativan Inj) 1 mg PRN Q4HRS PRN IVP ANXIETY / AGITATION MILD-MOD Last administered on 09/18/19at 15:55; Start 09/04/19 at 19:15; Stop 09/20/19 at 11:45; Status DC Lorazepam (Ativan Inj) 2 mg PRN Q4HRS PRN IVP ANXIETY / AGITATION SEVERE Last administered on 09/19/19at 07:55; Start 09/04/19 at 19:15; Stop 09/20/19 at 11:45; Status DC Fentanyl Citrate (Fentanyl 2ml Vial) 50 mcg PRN Q4HRS PRN IVP SEVERE PAIN Last administered on 10/01/19at 05:15; Start 09/05/19 at 13:15; Stop 10/02/19 at 09:29; Status DC Fentanyl Citrate (Fentanyl 2ml Vial) 25 mcg PRN Q4HRS PRN IVP MODERATE PAIN Last administered on 10/01/19at 00:27; Start 09/05/19 at 13:15; Stop 10/02/19 at 09:30; Status DC Potassium Chloride 90 meq/ Magnesium Sulfate 20 meq/ Multivitamins 10 ml/Chromium/ Copper/Manganese/ Seleni/Zn 1 ml/ Insulin Human Regular 15 unit/ Total Parenteral Nutrition/Amino Acids/Dextrose/ Fat Emulsion Intravenous 1,890 ml @ 78.75 mls/ hr TPN CONT IV Last administered on 09/05/19at 22:18; Start 09/05/19 at 22:00; Stop 09/06/19 at 21:59; Status DC Furosemide (Lasix) 40 mg 1X ONCE IVP Last administered on 09/05/19at 21:51; Start 09/05/19 at 21:45; Stop 09/05/19 at 21:48; Status DC Albumin Human 100 ml @ 100 mls/hr 1X PRN PRN IV SEE COMMENTS; Start 09/06/19 at 01:30 Furosemide (Lasix) 40 mg [id number] IVP Last administered on 09/21/19at 08:04; Start 09/06/19 at 14:00; Stop 09/21/19 at 13:07; Status DC Potassium Chloride 90 meq/ Magnesium Sulfate 20 meq/ Multivitamins 10 ml/Chromium/ Copper/Manganese/ Seleni/Zn 1 ml/ Insulin Human Regular 15 unit/ Total Parenteral Nutrition/Amino Acids/Dextrose/ Fat Emulsion Intravenous 1,800 ml @ 75 mls/hr TPN CONT IV Last administered on 09/06/19at 22:31; Start at 22:00; Stop 09/07/19 at 21:59; Status DC Potassium Chloride 90 meq/ Magnesium Sulfate 20 meq/ Multivitamins 10 ml/Chr omium/ Copper/Manganese/ Seleni/Zn 1 ml/ Insulin Human Regular 15 unit/ Total Parenteral Nutrition/Amino Acids/Dextrose/ Fat Emulsion Intravenous 1,800 ml @ 75 mls/hr TPN CONT IV Last administered on 09/07/19at 22:28; Start 09/07/19 at 22:00; Stop 09/08/19 at 21:59; Status DC Potassium Chloride 110 meq/ Magnesium Sulfate 20 meq/ Multivitamins 10 ml/Chromium/ Copper/Manganese/ Seleni/Zn 1 ml/ Insulin Human Regular 15 unit/ Total Parenteral Nutrition/Amino Acids/Dextrose/ Fat Emulsion Intravenous 1,800 ml @ 75 mls/hr TPN CONT IV Last administered on 09/08/19at 22:01; Start 09/08/19 at 22:00; Stop 09/09/19 at 21:59; Status DC Saliva Substitute (Biotene Moisturizing Mouth) 2 spray PRN Q15MIN PRN PO DRY MOUTH; Start 09/08/19 at 11:00 Potassium Chloride 110 meq/ Magnesium Sulfate 20 meq/ Multivitamins 10 ml/Chromium/ Copper/Manganese/ Seleni/Zn 1 ml/ Insulin Human Regular 15 unit/ T otal Parenteral Nutrition/Amino Acids/Dextrose/ Fat Emulsion Intravenous 1,800 ml @ 75 mls/hr TPN CONT IV Last administered on 09/09/19at 22:21; Start 09/09/19 at 22:00; Stop 09/10/19 at 21:59; Status DC Potassium Chloride 110 meq/ Magnesium Sulfate 20 meq/ Multivitamins 10 ml/Chromium/ Copper/Manganese/ Seleni/Zn 1 ml/ Insulin Human Regular 15 unit/ Total Parenteral Nutrition/Amino Acids/Dextrose/ Fat Emulsion Intravenous 1,800 ml @ 75 mls/hr TPN CONT IV Last administered on 09/10/19at 22:04; Start at 22:00; Stop 09/11/19 at 21:59; Status DC Potassium Chloride 110 meq/ Magnesium Sulfate 20 meq/ Multivitamins 10 ml/Ch romium/ Copper/Manganese/ Seleni/Zn 1 ml/ Insulin Human Regular 15 unit/ Total Parenteral Nutrition/Amino Acids/Dextrose/ Fat Emulsion Intravenous 1,800 ml @ 75 mls/hr TPN CONT IV Last administered on 09/11/19at 22:48; Start 09/11/19 at 22:00; Stop 09/12/19 at 21:59; Status DC Potassium Chloride 70 meq/ Magnesium Sulfate 20 meq/ Multivitamins 10 ml/Chromium/ Copper/Manganese/ Seleni/Zn 1 ml/ Insulin Human Regular 15 unit/ Total Parenteral Nutrition/Amino Acids/Dextrose/ Fat Emulsion Intravenous 1,800 ml @ 75 mls/hr TPN CONT IV Last administered on 09/12/19at 21:39; Start 09/12/19 at 22:00; Stop 09/13/19 at 21:59; Status DC Meropenem 500 mg/ Sodium Chloride 50 ml @ 100 mls/hr Q6HRS IV Last administered on 09/14/19at 06:02; Start 09/12/19 at 18:00; Stop 09/14/19 at 09:59; Status DC Barium Sulfate (Varibar Thin Liquid Apple) 148 gm 1X ONCE PO ; Start 09/13/19 at 11:45; Stop 09/13/19 at 11:49; Status DC Potassium Chloride 70 meq/ Magnesium Sulfate 20 meq/ Multivitamins 10 ml/Chromium/ Copper/Manganese/ Seleni/Zn 1 ml/ Insulin Human Regular 15 unit/ Total Parenteral Nutrition/Amino Acids/Dextrose/ Fat Emulsion Intravenous 1,800 ml @ 75 mls/hr TPN CONT IV Last administered on 09/13/19at 22:27; Start 09/13/19 at 22:00; Stop 09/14/19 at 21:59; Status DC Piperacillin Sod/ Tazobactam Sod 3.375 gm/Sodium Chloride 50 ml @ 100 mls/hr Q6HRS IV Last administered on 09/22/19at 06:10; Start 09/14/19 at 12:00; Stop 09/22/19 at 07:26; Status DC Potassium Chloride 70 meq/ Magnesium Sulfate 20 meq/ Multivitamins 10 ml/ Chromium/ Copper/Manganese/ Seleni/Zn 1 ml/ Insulin Human Regular 15 unit/ Total Parenteral Nutrition/Amino Acids/Dextrose/ Fat Emulsion Intravenous 1,800 ml @ 75 mls/hr TPN CONT IV Last administered on 09/14/19at 22:03; Start 09/14/19 at 22:00; Stop 09/15/19 at 21:59; Status DC Potassium Chloride 70 meq/ Magnesium Sulfate 20 meq/ Multivitamins 10 ml/Chromium/ Copper/Manganese/ Seleni/Zn 1 ml/ Insulin Human Regular 15 unit/ Total Parenteral Nutrition/Amino Acids/Dextrose/ Fat Emulsion Intravenous 1,800 ml @ 75 mls/hr TPN CONT IV Last administered on 09/15/19at 22:33; Start 09/15/19 at 22:00; Stop 09/16/19 at 21:59; Status DC Potassium Chloride 70 meq/ Magnesium Sulfate 20 meq/ Multivitamins 10 ml/Chromium/ Copper/Manganese/ Seleni/Zn 1 ml/ Insulin Human Regular 15 unit/ Total Parenteral Nutrition/Amino Acids/Dextrose/ Fat Emulsion Intravenous 1,800 ml @ 75 mls/hr TPN CONT IV Last administered on 09/16/19at 23:13; Start 09/16/19 at 22:00; Stop 09/17/19 at 21:59; Status DC Potassium Chloride 80 meq/ Magnesium Sulfate 20 meq/ Multivitamins 10 ml/Chromium/ Copper/Manganese/ Seleni/Zn 1 ml/ Insulin Human Regular 15 unit/ Total Parenteral Nutrition/Amino Acids/Dextrose/ Fat Emulsion Intravenous 1,800 ml @ 75 mls/hr TPN CONT IV Last administered on 09/17/19at 22:30; Start 09/17/19 at 22:00; Stop 09/18/19 at 21:59; Status DC Potassium Chloride 80 meq/ Magnesium Sulfate 20 meq/ Multivitamins 10 ml/Chromium/ Copper/Manganese/ Seleni/Zn 1 ml/ Insulin Human Regular 15 unit/ Total Parenteral Nutrition/Amino Acids/Dextrose/ Fat Emulsion Intravenous 1,800 ml @ 75 mls/hr TPN CONT IV Last administered on 09/18/19at 21:54; Start 09/18/19 at 22:00; Stop 09/19/19 at 21:59; Status DC Potassium Chloride/Water 100 ml @ 100 mls/hr 1X ONCE IV Last administered on 09/19/19at 10:15; Start 09/19/19 at 10:00; Stop 09/19/19 at 10:59; Status DC Potassium Chloride 90 meq/ Magnesium Sulfate 20 meq/ Multivitamins 10 ml/Chromium/ Copper/Manganese/ Seleni/Zn 1 ml/ Insulin Human Regular 20 unit/ Total Parenteral Nutrition/Amino Acids/Dextrose/ Fat Emulsion Intravenous 1,800 ml @ 75 mls/hr TPN CONT IV Last administered on 09/19/19at 22:28; Start 09/19/19 at 22:00; Stop 09/20/19 at 21:59; Status DC Potassium Chloride 90 meq/ Magnesium Sulfate 20 meq/ Multivitamins 10 ml/Chromium/ Copper/Manganese/ Seleni/Zn 1 ml/ Insulin Human Regular 20 unit/ Total Parenteral Nutrition/Amino Acids/Dextrose/ Fat Emulsion Intravenous 1,800 ml @ 75 mls/hr TPN CONT IV Last administered on 09/20/19at 22:08; Start 09/20/19 at 22:00; Stop 09/21/19 at 21:59; Status DC Lorazepam (Ativan Inj) 0.25 mg PRN Q4HRS PRN IVP ANXIETY / AGITATION Last administered on 10/30/19at 00:27; Start 09/21/19 at 07:30 Potassium Chloride 90 meq/ Magnesium Sulfate 20 meq/ Multivitamins 10 ml/Chromium/ Copper/Manganese/ Seleni/Zn 1 ml/ Insulin Human Regular 20 unit/ Total Parenteral Nutrition/Amino Acids/Dextrose/ Fat Emulsion Intravenous 1,800 ml @ 75 mls/hr TPN CONT IV Last administered on 09/21/19at 23:13; Start 09/21/19 at 22:00; Stop 09/22/19 at 21:59; Status DC Furosemide (Lasix) 40 mg DAILY IVP Last administered on 09/23/19at 11:14; Start 09/21/19 at 13:30; Stop 09/25/19 at 09:12; Status DC Fluoxetine HCl (PROzac) 20 mg QHS PEG Last administered on 11/02/19at 20:44; Start 09/22/19 at 21:00 Fentanyl (Duragesic 50mcg/ Hr Patch) 1 patch Q72H TD Last administered on 09/22/19at 21:22; Start 09/22/19 at 21:00; Stop 10/01/19 at 12:00; Status DC Potassium Chloride 40 meq/ Potassium Acetate 60 meq/Magnesium Sulfate 10 meq/ Multivitamins 10 ml/Chromium/ Copper/Manganese/ Seleni/Zn 1 ml/ Insulin Human Regular 20 unit/ Total Parenteral Nutrition/Amino Acids/Dextrose/ Fat Emulsion Intravenous 1,800 ml @ 75 mls/hr TPN CONT IV Last administered on 09/23/19at 00:03; Start 09/22/19 at 22:00; Stop 09/23/19 at 21:59; Status DC Potassium Acetate 80 meq/Magnesium Sulfate 5 meq/ Multivitamins 10 ml/Chromium/ Copper/Manganese/ Seleni/Zn 1 ml/ Insulin Human Regular 20 unit/ Total Parenter al Nutrition/Amino Acids/Dextrose/ Fat Emulsion Intravenous 1,920 ml @ 80 mls/hr TPN CONT IV Last administered on 09/23/19at 21:59; Start 09/23/19 at 22:00; Stop 09/24/19 at 21:59; Status DC Potassium Acetate 60 meq/Magnesium Sulfate 5 meq/ Multivitamins 10 ml/Chromium/ Copper/Manganese/ Seleni/Zn 1 ml/ Insulin Human Regular 30 unit/ Total Parenteral Nutrition/Amino Acids/Dextrose/ Fat Emulsion Intravenous 1,920 ml @ 80 mls/hr TPN CONT IV Last administered on 09/24/19at 21:54; Start 09/24/19 at 22:00; Stop 09/25/19 at 21:59; Status DC Norepinephrine Bitartrate 8 mg/ Dextrose 258 ml @ 13.332 mls/ hr CONT PRN IV PER PROTOCOL Last administered on 10/20/19at 09:09; Start 09/25/19 at 06:30 Albumin Human 500 ml @ 125 mls/hr 1X ONCE IV Last administered on 09/25/19at 08:10; Start 09/25/19 at 08:15; Stop 09/25/19 at 12:14; Status DC Potassium Acetate 40 meq/Magnesium Sulfate 5 meq/ Multivitamins 10 ml/Chromium/ Copper/Manganese/ Seleni/Zn 1 ml/ Insulin Human Regular 30 unit/ Total Parenteral Nutrition/Amino Acids/Dextrose/ Fat Emulsion Intravenous 1,920 ml @ 80 mls/hr TPN CONT IV Last administered on 09/25/19at 22:23; Start 09/25/19 at 22:00; Stop 09/26/19 at 21:59; Status DC Meropenem 1 gm/ Sodium Chloride 100 ml @ 200 mls/hr Q8HRS IV ; Start 09/25/19 at 14:00; Status Cancel Meropenem 1 gm/ Sodium Chloride 100 ml @ 200 mls/hr Q8HRS IV Last administered on 09/25/19at 11:04; Start 09/25/19 at 10:00; Stop 09/25/19 at 13:00; Status DC Meropenem 1 gm/ Sodium Chloride 100 ml @ 200 mls/hr Q12HR IV Last administered on 10/13/19at 08:27; Start 09/25/19 at 21:00; Stop 10/13/19 at 08:56; Status DC Sodium Chloride 1,000 ml @ 1,000 mls/hr 1X ONCE IV Last administered on 09/25/19at 11:06; Start 09/25/19 at 10:45; Stop 09/25/19 at 11:44; Status DC Micafungin Sodium 100 mg/Dextrose 100 ml @ 100 mls/hr Q24H IV Last administered on 10/12/19at 12:34; Start 09/25/19 at 11:00; Stop 10/13/19 at 08:56; Status DC Daptomycin 410 mg/ Sodium Chloride 50 ml @ 100 mls/hr Q24H IV Last administered on 09/27/19at 13:33; Start 09/25/19 at 14:00; Stop 09/28/19 at 08:30; Status DC Midazolam HCl (Versed) 2 mg STK-MED ONCE .ROUTE ; Start 09/25/19 at 14:47; Stop 09/25/19 at 14:48; Status DC Fentanyl Citrate (Fentanyl 2ml Vial) 100 mcg STK-MED ONCE .ROUTE ; Start 09/25/19 at 14:47; Stop 09/25/19 at 14:48; Status DC Flumazenil (Romazicon) 0.5 mg STK-MED ONCE IV ; Start 09/25/19 at 14:48; Stop 09/25/19 at 14:48; Status DC Naloxone HCl (Narcan) 0.4 mg STK-MED ONCE .ROUTE ; Start 09/25/19 at 14:48; Stop 09/25/19 at 14:48; Status DC Lidocaine HCl (Lidocaine 1% 20ml Vial) 20 ml STK-MED ONCE .ROUTE ; Start 09/25/19 at 14:48; Stop 09/25/19 at 14:48; Status DC Midazolam HCl (Versed) 2 mg 1X ONCE IV Last administered on 09/25/19at 15:28; Start 09/25/19 at 15:00; Stop 09/25/19 at 15:01; Status DC Fentanyl Citrate (Fentanyl 2ml Vial) 100 mcg 1X ONCE IV Last administered on 09/25/19at 15:28; Start 09/25/19 at 15:00; Stop 09/25/19 at 15:01; Status DC Lidocaine HCl (Lidocaine 1% 20ml Vial) 20 ml 1X ONCE INJ Last administered on 09/25/19at 15:30; Start 09/25/19 at 15:00; Stop 09/25/19 at 15:01; Status DC Sodium Chloride 1,000 ml @ 100 mls/hr Q10H IV Last administered on 10/04/19at 07:30; Start 09/25/19 at 20:00; Stop 10/04/19 at 11:26; Status DC Sodium Bicarbonate (Sodium Bicarb Adult 8.4% Syr) 50 meq 1X ONCE IV Last administered on 09/25/19at 21:47; Start 09/25/19 at 22:00; Stop 09/25/19 at 22:01; Status DC Potassium Acetate 40 meq/Magnesium Sulfate 5 meq/ Multivitamins 10 ml/Chromium/ Copper/Manganese/ Seleni/Zn 1 ml/ Insulin Human Regular 30 unit/ Total Parenteral Nutrition/Amino Acids/Dextrose/ Fat Emulsion Intravenous 1,920 ml @ 80 mls/hr TPN CONT IV Last administered on 09/26/19at 22:28; Start 09/26/19 at 22:00; Stop 09/27/19 at 21:59; Status DC Sodium Chloride 500 ml @ 500 mls/hr 1X ONCE IV Last administered on 09/27/19at 06:39; Start 09/27/19 at 06:45; Stop 09/27/19 at 07:44; Status DC Potassium Acetate 40 meq/Magnesium Sulfate 5 meq/ Multivitamins 10 ml/Chromium/ Copper/Manganese/ Seleni/Zn 1 ml/ Insulin Human Regular 30 unit/ Total Parenteral Nutrition/Amino Acids/Dextrose/ Fat Emulsion Intravenous 1,920 ml @ 80 mls/hr TPN CONT IV Last administered on 09/27/19at 22:03; Start 09/27/19 at 22:00; Stop 09/28/19 at 21:59; Status DC Metoprolol Tartrate (Lopressor Vial) 5 mg PRN Q6HRS PRN IVP HYPERTENSION Last administered on 10/30/19at 18:01; Start 09/28/19 at 09:00 Potassium Acetate 40 meq/Magnesium Sulfate 5 meq/ Multivitamins 10 ml/Chromium/ Copper/Manganese/ Seleni/Zn 1 ml/ Insulin Human Regular 30 unit/ Total Parenteral Nutrition/Amino Acids/Dextrose/ Fat Emulsion Intravenous 1,920 ml @ 80 mls/hr TPN CONT IV Last administered on 09/28/19at 21:26; Start 09/28/19 at 22:00; Stop 09/29/19 at 21:59; Status DC Potassium Acetate 40 meq/Magnesium Sulfate 5 meq/ Multivitamins 10 ml/Chromium/ Copper/Manganese/ Seleni/Zn 1 ml/ Insulin Human Regular 30 unit/ Total Parenteral Nutrition/Amino Acids/Dextrose/ Fat Emulsion Intravenous 1,920 ml @ 80 mls/hr TPN CONT IV Last administered on 09/29/19at 23:23; Start 09/29/19 at 22:00; Stop 09/30/19 at 21:59; Status DC Potassium Acetate 40 meq/Magnesium Sulfate 5 meq/ Multivitamins 10 ml/Chromium/ Copper/Manganese/ Seleni/Zn 1 ml/ Insulin Human Regular 30 unit/ Total Parent eral Nutrition/Amino Acids/Dextrose/ Fat Emulsion Intravenous 1,920 ml @ 80 mls/hr TPN CONT IV Last administered on 09/30/19at 21:35; Start 09/30/19 at 22:00; Stop 10/01/19 at 21:59; Status DC Furosemide (Lasix) 20 mg 1X ONCE IVP Last administered on 10/01/19at 06:26; Start 10/01/19 at 06:15; Stop 10/01/19 at 06:16; Status DC Methylprednisolone Sodium Succinate (SOLU-Medrol 125MG VIAL) 125 mg 1X ONCE IV Last administered on 10/01/19at 06:26; Start 10/01/19 at 06:15; Stop 10/01/19 at 06:16; Status DC Albuterol/ Ipratropium (Duoneb) 3 ml Q4HRS NEB Last administered on 11/03/19at 07:52; Start 10/01/19 at 08:00 Fentanyl Citrate 30 ml @ 0 mls/hr CONT PRN IV SEE PROTOCOL Last administered on 10/22/19at 08:03; Start 10/01/19 at 06:00; Stop 10/22/19 at 12:42; Status DC Propofol 100 ml @ 0 mls/hr CONT PRN IV SEE PROTOCOL Last administered on 10/08/19at 23:50; Start 10/01/19 at 06:00 Fentanyl Citrate (Fentanyl 2ml Vial) 25 mcg PRN Q1HR PRN IV SEE COMMENTS Last administered on 11/03/19at 08:21; Start 10/01/19 at 06:00 Fentanyl Citrate (Fentanyl 2ml Vial) 50 mcg PRN Q1HR PRN IV SEE COMMENTS Last administered on 10/30/19at 18:02; Start 10/01/19 at 06:00 Chlorhexidine Gluconate (Peridex) 15 ml BID MM ; Start 10/01/19 at 09:00; Stop 10/01/19 at 07:58; Status DC Potassium Acetate 40 meq/Magnesium Sulfate 5 meq/ Multivitamins 10 ml/Chromium/ Copper/Manganese/ Seleni/Zn 1 ml/ Insulin Human Regular 30 unit/ Total Parenteral Nutrition/Amino Acids/Dextrose/ Fat Emulsion Intravenous 1,920 ml @ 80 mls/hr TPN CONT IV Last administered on 10/01/19at 21:19; Start 10/01/19 at 22:00; Stop 10/02/19 at 21:59; Status DC Acetylcysteine (Mucomyst 20% Resp Treatment) 600 mg BID NEB Last administered on 10/07/19at 09:33; Start 10/01/19 at 21:00; Stop 10/07/19 at 10:39; Status DC Magnesium Sulfate 100 ml @ 25 mls/hr 1X ONCE IV Last administered on 10/01/19at 15:48; Start 10/01/19 at 15:45; Stop 10/01/19 at 19:44; Status DC Potassium Acetate 40 meq/Magnesium Sulfate 5 meq/ Multivitamins 10 ml/Chromium/ Copper/Manganese/ Seleni/Zn 1 ml/ Insulin Human Regular 30 unit/ Total Parenteral Nutrition/Amino Acids/Dextrose/ Fat Emulsion Intravenous 1,920 ml @ 80 mls/hr TPN CONT IV Last administered on 10/02/19at 21:35; Start 10/02/19 at 22:00; Stop 10/03/19 at 21:59; Status DC Potassium Chloride/Water 100 ml @ 100 mls/hr Q1H IV Last administered on 10/03/19at 08:31; Start 10/03/19 at 07:00; Stop 10/03/19 at 08:59; Status DC Potassium Acetate 40 meq/Magnesium Sulfate 5 meq/ Multivitamins 10 ml/Chromium/ Copper/Manganese/ Seleni/Zn 1 ml/ Insulin Human Regular 30 unit/ Total Parenteral Nutrition/Amino Acids/Dextrose/ Fat Emulsion Intravenous 1,920 ml @ 80 mls/hr TPN CONT IV Last administered on 10/03/19at 21:54; Start 10/03/19 at 22:00; Stop 10/04/19 at 19:34; Status DC Lidocaine HCl (Buffered Lidocaine 1%) 3 ml STK-MED ONCE .ROUTE ; Start 10/03/19 at 12:14; Stop 10/03/19 at 12:14; Status DC Lidocaine HCl (Buffered Lidocaine 1%) 3 ml 1X ONCE IJ Last administered on 10/03/19at 13:11; Start 10/03/19 at 13:00; Stop 10/03/19 at 13:01; Status DC Magnesium Sulfate 50 ml @ 25 mls/hr 1X ONCE IV ; Start 10/04/19 at 08:15; Stop 10/04/19 at 10:14; Status DC Potassium Acetate 40 meq/Magnesium Sulfate 10 meq/ Multivitamins 10 ml/Chromium/ Copper/Manganese/ Seleni/Zn 1 ml/ Insulin Human Regular 20 unit/ Total Parenteral Nutrition/Amino Acids/Dextrose/ Fat Emulsion Intravenous 1,920 ml @ 80 mls/hr TPN CONT IV Last administered on 10/04/19at 21:32; Start 10/04/19 at 22:00; Stop 10/05/19 at 21:59; Status DC Potassium Chloride/Water 100 ml @ 100 mls/hr Q1H IV Last administered on 10/05/19at 09:12; Start 10/05/19 at 08:00; Stop 10/05/19 at 09:59; Status DC Alteplase, Recombinant (Cathflo For Central Catheter Clearance) 4 mg 1X ONCE INT CAT ; Start 10/05/19 at 09:15; Stop 10/05/19 at 09:16; Status UNV Alteplase, Recombinant (Cathflo For Central Catheter Clearance) 4 mg 1X ONCE INT CAT ; Start 10/05/19 at 09:15; Stop 10/05/19 at 09:16; Status UNV Alteplase, Recombinant (Cathflo For Central Catheter Clearance) 4 mg 1X ONCE INT CAT ; Start 10/05/19 at 09:15; Stop 10/05/19 at 09:16; Status UNV Alteplase, Recombinant 4 mg/ Sodium Chloride 20 ml @ 20 mls/hr 1X ONCE IV Last administered on 10/05/19at 10:10; Start 10/05/19 at 10:00; Stop 10/05/19 at 10:59; Status DC Alteplase, Recombinant 4 mg/ Sodium Chloride 20 ml @ 20 mls/hr 1X ONCE IV Last administered on 10/05/19at 10:09; Start 10/05/19 at 10:00; Stop 10/05/19 at 10:59; Status DC Alteplase, Recombinant 4 mg/ Sodium Chloride 20 ml @ 20 mls/hr 1X ONCE IV Last administered on 10/05/19at 10:09; Start 10/05/19 at 10:00; Stop 10/05/19 at 10:59; Status DC Potassium Acetate 60 meq/Magnesium Sulfate 10 meq/ Multivitamins 10 ml/Chromium/ Copper/Manganese/ Seleni/Zn 1 ml/ Insulin Human Regular 20 unit/ Total Parenteral Nutrition/Amino Acids/Dextrose/ Fat Emulsion Intravenous 1,920 ml @ 80 mls/hr TPN CONT IV Last administered on 10/05/19at 21:55; Start 10/05/19 at 22:00; Stop 10/06/19 at 21:59; Status DC Albumin Human 500 ml @ 125 mls/hr 1X ONCE IV Last administered on 10/06/19at 12:01; Start 10/06/19 at 11:15; Stop 10/06/19 at 15:14; Status DC Sodium Chloride 500 ml @ 500 mls/hr 1X ONCE IV Last administered on 10/06/19at 13:50; Start 10/06/19 at 11:15; Stop 10/06/19 at 12:14; Status DC Potassium Acetate 60 meq/Magnesium Sulfate 14 meq/ Multivitamins 10 ml/Chromium/ Copper/Manganese/ Seleni/Zn 1 ml/ Insulin Human Regular 20 unit/ Total Parenteral Nutrition/Amino Acids/Dextrose/ Fat Emulsion Intravenous 1,920 ml @ 80 mls/hr TPN CONT IV Last administered on 10/06/19at 22:26; Start 10/06/19 at 22:00; Stop 10/07/19 at 21:59; Status DC Ciprofloxacin/ Dextrose 200 ml @ 200 mls/hr Q12HR IV Last administered on 10/13/19at 08:27; Start 10/06/19 at 21:00; Stop 10/13/19 at 08:56; Status DC Albumin Human 250 ml @ 62.5 mls/hr 1X ONCE IV Last administered on 10/07/19at 11:09; Start 10/07/19 at 11:00; Stop 10/07/19 at 14:59; Status DC Furosemide (Lasix) 20 mg 1X ONCE IVP Last administered on 10/07/19at 14:52; Start 10/07/19 at 10:45; Stop 10/07/19 at 10:49; Status DC Potassium Acetate 60 meq/Magnesium Sulfate 14 meq/ Multivitamins 10 ml/Chromium/ Copper/Manganese/ Seleni/Zn 1 ml/ Insulin Human Regular 15 unit/ Total Parenteral Nutrition/Amino Acids/Dextrose/ Fat Emulsion Intravenous 1,920 ml @ 80 mls/hr TPN CONT IV Last administered on 10/07/19at 22:08; Start 10/07/19 at 22:00; Stop 10/08/19 at 21:59; Status DC Potassium Acetate 60 meq/Magnesium Sulfate 14 meq/ Multivitamins 10 ml/Chromium/ Copper/Manganese/ Seleni/Zn 1 ml/ Insulin Human Regular 15 unit/ Total Parenteral Nutrition/Amino Acids/Dextrose/ Fat Emulsion Intravenous 1,920 ml @ 80 mls/hr TPN CONT IV Last administered on 10/08/19at 22:12; Start 10/08/19 at 22:00; Stop 10/09/19 at 21:59; Status DC Potassium Acetate 60 meq/Magnesium Sulfate 14 meq/ Multivitamins 10 ml/Chromium/ Copper/Manganese/ Seleni/Zn 1 ml/ Insulin Human Regular 15 unit/ Total Parenteral Nutrition/Amino Acids/Dextrose/ Fat Emulsion Intravenous 1,920 ml @ 80 mls/hr TPN CONT IV Last administered on 10/09/19at 22:22; Start 10/09/19 at 22:00; Stop 10/10/19 at 21:59; Status DC Furosemide (Lasix) 20 mg 1X ONCE IVP Last administered on 10/10/19at 11:07; Start 10/10/19 at 10:30; Stop 10/10/19 at 10:34; Status DC Potassium Acetate 60 meq/Magnesium Sulfate 14 meq/ Multivitamins 10 ml/Chromium/ Copper/Manganese/ Seleni/Zn 1 ml/ Insulin Human Regular 15 unit/ Sodium Chloride 20 meq/Total Parenteral Nutrition/Amino Acids/Dextrose/ Fat Emulsion Intravenous 1,920 ml @ 80 mls/hr TPN CONT IV Last administered on 10/10/19at 21:54; Start 10/10/19 at 22:00; Stop 10/11/19 at 21:59; Status DC Potassium Acetate 30 meq/Magnesium Sulfate 14 meq/ Multivitamins 10 ml/Chromium/ Copper/Manganese/ Seleni/Zn 1 ml/ Insulin Human Regular 15 unit/ Sodium Chloride 20 meq/Potassium Chloride 30 meq/ Total Parenteral Nutrition/Amino Acids/Dextrose/ Fat Emulsion Intravenous 1,920 ml @ 80 mls/hr TPN CONT IV Last administered on 10/11/19at 21:46; Start 10/11/19 at 22:00; Stop 10/12/19 at 21:59; Status DC Sodium Chloride 80 meq/Potassium Chloride 30 meq/ Potassium Acetate 30 meq/Magnesium Sulfate 14 meq/ Multivitamins 10 ml/Chromium/ Copper/Manganese/ Seleni/Zn 1 ml/ Insulin Human Regular 15 unit/ Total Parenteral Nutrition/Amino Acids/Dextrose/ Fat Emulsion Intravenous 1,920 ml @ 80 mls/hr TPN CONT IV Last administered on 10/12/19at 22:33; Start 10/12/19 at 22:00; Stop 10/13/19 at 21:59; Status DC Furosemide (Lasix) 40 mg 1X ONCE IVP Last administered on 10/12/19at 16:27; Start 10/12/19 at 15:30; Stop 10/12/19 at 15:33; Status DC Albumin Human 250 ml @ 62.5 mls/hr 1X ONCE IV Last administered on 10/12/19at 16:27; Start 10/12/19 at 15:30; Stop 10/12/19 at 19:29; Status DC Sodium Chloride 80 meq/Potassium Chloride 30 meq/ Potassium Acetate 30 meq/Magnesium Sulfate 14 meq/ Multivitamins 10 ml/Chromium/ Copper/Manganese/ Seleni/Zn 1 ml/ Insulin Human Regular 15 unit/ Total Parenteral Nutrition/Amino Acids/Dextrose/ Fat Emulsion Intravenous 1,920 ml @ 80 mls/hr TPN CONT IV Last administered on 10/13/19at 22:25; Start 10/13/19 at 22:00; Stop 10/14/19 at 21:59; Status DC Sodium Chloride 80 meq/Potassium Chloride 30 meq/ Potassium Acetate 30 meq/Magnesium Sulfate 14 meq/ Multivitamins 10 ml/Chromium/ Copper/Manganese/ Seleni/Zn 1 ml/ Insulin Human Regular 15 unit/ Total Parenteral Nutrition/Amino Acids/Dextrose/ Fat Emulsion Intravenous 1,920 ml @ 80 mls/hr TPN CONT IV Last administered on 10/14/19at 21:32; Start 10/14/19 at 22:00; Stop 10/15/19 at 21:59; Status DC Sodium Chloride 80 meq/Potassium Chloride 30 meq/ Potassium Acetate 30 meq/Magnesium Sulfate 14 meq/ Multivitamins 10 ml/Chromium/ Copper/Manganese/ Seleni/Zn 1 ml/ Insulin Human Regular 15 unit/ Total Parenteral Nutrition/Amino Acids/Dextrose/ Fat Emulsion Intravenous 1,920 ml @ 80 mls/hr TPN CONT IV Last administered on 10/15/19at 21:53; Start 10/15/19 at 22:00; Stop 10/16/19 at 21:59; Status DC Acetylcysteine (Mucomyst 20% Resp Treatment) 600 mg RTBID NEB Last administered on 11/03/19at 07:52; Start 10/15/19 at 12:00 Sodium Chloride 80 meq/Potassium Chloride 30 meq/ Potassium Acetate 30 meq/Magnesium Sulfate 14 meq/ Multivitamins 10 ml/Chromium/ Copper/Manganese/ Seleni/Zn 1 ml/ Insulin Human Regular 15 unit/ Total Parenteral Nutrition/Amino Acids/Dextrose/ Fat Emulsion Intravenous 1,920 ml @ 80 mls/hr TPN CONT IV Last administered on 10/16/19at 22:06; Start 10/16/19 at 22:00; Stop 10/17/19 at 21:59; Status DC Meropenem 500 mg/ Sodium Chloride 50 ml @ 100 mls/hr Q6HRS IV Last administered on 11/03/19at 06:16; Start 10/16/19 at 18:00 Daptomycin 500 mg/ Sodium Chloride 50 ml @ 100 mls/hr Q24H IV Last administered on 10/24/19at 21:47; Start 10/16/19 at 19:00; Stop 10/25/19 at 08:13; Status DC Sodium Chloride 80 meq/Potassium Chloride 30 meq/ Potassium Acetate 30 meq/Magnesium Sulfate 14 meq/ Multivitamins 10 ml/Chromium/ Copper/Manganese/ Seleni/Zn 1 ml/ Insulin Human Regular 15 unit/ Total Parenteral Nutrition/Amino Acids/Dextrose/ Fat Emulsion Intravenous 1,920 ml @ 80 mls/hr TPN CONT IV Last administered on 10/17/19at 22:09; Start 10/17/19 at 22:00; Stop 10/18/19 at 21:59; Status DC Heparin Sodium (Porcine) 1000 unit/Sodium Chloride 1,001 ml @ 1,001 mls/hr 1X ONCE IRR ; Start 10/18/19 at 06:00; Stop 10/18/19 at 06:59; Status DC Propofol (Diprivan) 200 mg STK-MED ONCE IV ; Start 10/18/19 at 07:44; Stop 10/18/19 at 07:44; Status DC Lidocaine HCl (Lidocaine Pf 2% Vial) 5 ml STK-MED ONCE .ROUTE ; Start 10/18/19 at 07:44; Stop 10/18/19 at 07:44; Status DC Fentanyl Citrate (Fentanyl 2ml Vial) 100 mcg STK-MED ONCE .ROUTE ; Start 10/18/19 at 07:44; Stop 10/18/19 at 07:44; Status DC Rocuronium [place] (Zemuron) 100 mg STK-MED ONCE .ROUTE ; Start 10/18/19 at 07:44; Stop 10/18/19 at 07:44; Status DC Micafungin Sodium 100 mg/Dextrose 100 ml @ 100 mls/hr Q24H IV Last administered on 11/03/19at 08:19; Start 10/18/19 at 08:30 Bupivacaine HCl/ Epinephrine Bitart (Sensorcain-Epi 0.5%-1:[id number] Mpf) 30 ml STK-MED ONCE .ROUTE ; Start 10/18/19 at 08:34; Stop 10/18/19 at 08:35; Status DC Iohexol (Omnipaque 300 Mg/ml) 50 ml STK-MED ONCE .ROUTE Last administered on 10/18/19at 13:30; Start 10/18/19 at 08:35; Stop 10/18/19 at 08:35; Status DC Sodium Chloride 80 meq/Potassium Chloride 30 meq/ Potassium Acetate 30 meq/Magnesium Sulfate 14 meq/ Multivitamins 10 ml/Chromium/ Copper/Manganese/ Seleni/Zn 1 ml/ Insulin Human Regular 15 unit/ Total Parenteral Nutrition/Amino Acids/Dextrose/ Fat Emulsion Intravenous 1,920 ml @ 80 mls/hr TPN CONT IV Last administered on 10/19/19at 01:22; Start 10/18/19 at 22:00; Stop 10/19/19 at 21:59; Status DC Phenylephrine HCl (Brayden-Synephrine Inj) 10 mg STK-MED ONCE .ROUTE ; Start 10/18/19 at 10:15; Stop 10/18/19 at 10:15; Status DC Desflurane (Suprane) 90 ml STK-MED ONCE IH ; Start 10/18/19 at 10:18; Stop 10/18/19 at 10:19; Status DC Albumin Human 500 ml @ As Directed STK-MED ONCE IV ; Start 10/18/19 at 11:06; Stop 10/18/19 at 11:06; Status DC Vasopressin (Vasostrict) 20 unit STK-MED ONCE .ROUTE ; Start 10/18/19 at 12:23; Stop 10/18/19 at 12:23; Status DC Phenylephrine HCl (Brayden-Synephrine Inj) 10 mg STK-MED ONCE .ROUTE ; Start 10/18/19 at 13:33; Stop 10/18/19 at 13:33; Status DC Phenylephrine HCl (Brayden-Synephrine Inj) 10 mg STK-MED ONCE .ROUTE ; Start 10/18/19 at 13:33; Stop 10/18/19 at 13:33; Status DC Ondansetron HCl (Zofran) 4 mg STK-MED ONCE .ROUTE ; Start 10/18/19 at 13:33; Stop 10/18/19 at 13:33; Status DC Enoxaparin Sodium (Lovenox 40mg Syringe) 40 mg Q24H SQ Last administered on at 08:18; Start 10/19/19 at 08:00 Sodium Chloride (Normal Saline Flush) 3 ml QSHIFT PRN IV AFTER MEDS AND BLOOD DRAWS; Start 10/18/19 at 14:45 Naloxone HCl (Narcan) 0.4 mg PRN Q2MIN PRN IV SEE INSTRUCTIONS; Start 10/18/19 at 14:45 Sodium Chloride 1,000 ml @ 25 mls/hr Q24H IV Last administered on 11/02/19at 14:23; Start 10/18/19 at 14:33 Morphine Sulfate (Morphine Sulfate) 1 mg PRN Q1HR PRN IV PAIN; Start 10/18/19 at 14:45 Midazolam HCl 100 mg/Sodium Chloride 100 ml @ 1 mls/hr CONT PRN IV SEE I/O RE CORD Last administered on 10/21/19at 18:48; Start 10/18/19 at 14:45 Phenylephrine HCl (PHENYLEPHRINE in 0.9% NACL PF) 1 mg STK-MED ONCE IV ; Start 10/18/19 at 14:44; Stop 10/18/19 at 14:45; Status DC Ephedrine Sulfate (ePHEDrine PF IN SALINE SYRINGE) 50 mg STK-MED ONCE IV ; Start 10/18/19 at 14:45; Stop 10/18/19 at 14:45; Status DC Vasopressin 20 unit/Dextrose 101 ml @ 12 mls/hr CONT PRN IV SEE I/O RECORD Last administered on 10/25/19at 04:17; Start 10/18/19 at 15:30 Sodium Chloride 1,000 ml @ 1,000 mls/hr 1X ONCE IV Last administered on 10/18/19at 15:42; Start 10/18/19 at 15:45; Stop 10/18/19 at 16:44; Status DC Albumin Human 500 ml @ 125 mls/hr 1X ONCE IV ; Start 10/18/19 at 16:00; Stop 10/18/19 at 19:59; Status DC Albumin Human 500 ml @ 125 mls/hr PRN Q1HR PRN IV PER PROTOCOL; Start 10/18/19 at 15:45 Magnesium Sulfate 50 ml @ 25 mls/hr 1X ONCE IV Last administered on 10/18/19at 17:02; Start 10/18/19 at 16:30; Stop 10/18/19 at 18:29; Status DC Sodium Bicarbonate (Sodium Bicarb Adult 8.4% Syr) 50 meq STK-MED ONCE .ROUTE ; Start 10/18/19 at 16:20; Stop 10/18/19 at 16:20; Status DC Sodium Bicarbonate (Sodium Bicarb Adult 8.4% Syr) 100 meq 1X ONCE IV Last administered on 10/18/19at 17:07; Start 10/18/19 at 16:30; Stop 10/18/19 at 16:31; Status DC Sodium Bicarbonate 150 meq/Dextrose 1,150 ml @ 75 mls/hr 1X ONCE IV Last administered on 10/18/19at 20:02; Start 10/18/19 at 16:30; Stop 10/19/19 at 07:49; Status DC Sodium Chloride 80 meq/Potassium Chloride 30 meq/ Potassium Acetate 30 meq/Magnesium Sulfate 14 meq/ Multivitamins 10 ml/Chromium/ Copper/Manganese/ Seleni/Zn 1 ml/ Insulin Human Regular 15 unit/ Total Parenteral Nutrition/Amino Acids/Dextrose/ Fat Emulsion Intravenous 1,920 ml @ 80 mls/hr TPN CONT IV Last administered on 10/19/19at 23:05; Start 10/19/19 at 22:00; Stop 10/20/19 at 21:59; Status DC Sodium Chloride 100 meq/Potassium Chloride 30 meq/ Potassium Acetate 30 m eq/Magnesium Sulfate 12 meq/ Multivitamins 10 ml/Chromium/ Copper/Manganese/ Seleni/Zn 1 ml/ Insulin Human Regular 15 unit/ Total Parenteral Nutrition/Amino Acids/Dextrose/ Fat Emulsion Intravenous 1,920 ml @ 80 mls/hr TPN CONT IV Last administered on 10/20/19at 21:52; Start 10/20/19 at 22:00; Stop 10/21/19 at 21:59; Status DC Sodium Chloride 100 meq/Potassium Chloride 30 meq/ Potassium Acetate 30 meq/Magnesium Sulfate 12 meq/ Multivitamins 10 ml/Chromium/ Copper/Manganese/ Seleni/Zn 1 ml/ Insulin Human Regular 15 unit/ Total Parenteral Nutrition/Amino Acids/Dextrose/ Fat Emulsion Intravenous 1,920 ml @ 80 mls/hr TPN CONT IV Last administered on 10/21/19at 21:46; Start 10/21/19 at 22:00; Stop 10/22/19 at 21:59; Status DC Sodium Chloride 100 meq/Potassium Chloride 30 meq/ Potassium Acetate 30 meq/Magnesium Sulfate 12 meq/ Multivitamins 10 ml/Chromium/ Copper/Manganese/ Seleni/Zn 1 ml/ Insulin Human Regular 15 unit/ Total Parenteral Nutrition/Amino Acids/Dextrose/ Fat Emulsion Intravenous 1,800 ml @ 75 mls/hr TPN CONT IV Last administered on 10/22/19at 22:04; Start 10/22/19 at 22:00; Stop 10/23/19 at 21:59; Status DC Fentanyl Citrate 55 ml @ 0 mls/hr CONT PRN IV SEE COMMENTS Last administered on 10/24/19at 23:55; Start 10/22/19 at 13:00; Stop 10/27/19 at 17:28; Status DC Sodium Chloride 100 meq/Potassium Chloride 30 meq/ Potassium Acetate 30 meq/Magnesium Sulfate 12 meq/ Multivitamins 10 ml/Chromium/ Copper/Manganese/ Seleni/Zn 1 ml/ Insulin Human Regular 15 unit/ Total Parenteral Nutrition/Amino Acids/Dextrose/ Fat Emulsion Intravenous 1,680 ml @ 70 mls/hr TPN CONT IV Last administered on 10/23/19at 21:23; Start 10/23/19 at 22:00; Stop 10/24/19 at 21:59; Status DC Sodium Chloride 110 meq/Potassium Chloride 30 meq/ Potassium Acetate 30 meq/Magnesium Sulfate 15 meq/ Multivitamins 10 ml/Chromium/ Copper/Manganese/ Seleni/Zn 1 ml/ Insulin Human Regular 15 unit/ Total Parenteral Nutrition/Amino Acids/Dextrose/ Fat Emulsion Intravenous 1,680 ml @ 70 mls/hr TPN CONT IV Last administered on 10/24/19at 21:48; Start 10/24/19 at 22:00; Stop 10/25/19 at 21:59; Status DC Sodium Chloride 110 meq/Potassium Chloride 30 meq/ Potassium Acetate 30 meq/Magnesium Sulfate 15 meq/ Multivitamins 10 ml/Chromium/ Copper/Manganese/ Seleni/Zn 1 ml/ Insulin Human Regular 15 unit/ Total Parenteral Nutrition/Amino Acids/Dextrose/ Fat Emulsion Intravenous 1,680 ml @ 70 mls/hr TPN CONT IV Last administered on 10/25/19at 21:33; Start 10/25/19 at 22:00; Stop 10/26/19 at 21:59; Status DC Sodium Chloride 110 meq/Potassium Chloride 30 meq/ Potassium Acetate 30 meq/Magnesium Sulfate 15 meq/ Multivitamins 10 ml/Chromium/ Copper/Manganese/ Seleni/Zn 1 ml/ Insulin Human Regular 15 unit/ Total Parenteral Nutrition/Amino Acids/Dextrose/ Fat Emulsion Intravenous 1,680 ml @ 70 mls/hr TPN CONT IV Last administered on 10/26/19at 21:51; Start 10/26/19 at 22:00; Stop 10/27/19 at 21:59; Status DC Sodium Chloride 90 meq/Potassium Chloride 30 meq/ Potassium Acetate 30 meq/Magnesium Sulfate 15 meq/ Multivitamins 10 ml/Chromium/ Copper/Manganese/ Seleni/Zn 1 ml/ Insulin Human Regular 15 unit/ Total Parenteral Nutrition/Amino Acids/Dextrose/ Fat Emulsion Intravenous 1,680 ml @ 70 mls/hr TPN CONT IV Last administered on 10/27/19at 22:38; Start 10/27/19 at 22:00; Stop 10/28/19 at 21:59; Status DC Fentanyl Citrate 30 ml @ 0 mls/hr CONT PRN IV SEE I/O RECORD; Start 10/27/19 at 17:30 Fentanyl (Duragesic 12mcg/ Hr Patch) 1 patch Q3DAYS TD Last administered on 11/03/19at 08:27; Start 10/28/19 at 09:00 Sodium Chloride 90 meq/Potassium Chloride 30 meq/ Potassium Acetate 30 meq/Magnesium Sulfate 15 meq/ Multivitamins 10 ml/Chromium/ Copper/Manganese/ Seleni/Zn 1 ml/ Insulin Human Regular 15 unit/ Total Parenteral Nutrition/Amino Acids/Dextrose/ Fat Emulsion Intravenous 1,680 ml @ 70 mls/hr TPN CONT IV Last administered on 10/28/19at 21:59; Start 10/28/19 at 22:00; Stop 10/29/19 at 21:59; Status DC Sodium Chloride 90 meq/Potassium Chloride 30 meq/ Potassium Acetate 30 meq/Magnesium Sulfate 15 meq/ Multivitamins 10 ml/Chromium/ Copper/Manganese/ Seleni/Zn 1 ml/ Insulin Human Regular 15 unit/ Total Parenteral Nutrition/Amino Acids/Dextrose/ Fat Emulsion Intravenous 1,680 ml @ 70 mls/hr TPN CONT IV Last administered on 10/29/19at 21:35; Start 10/29/19 at 22:00; Stop 10/30/19 at 21:59; Status DC Vancomycin HCl (Vanco Per Pharmacy) 1 each PRN DAILY PRN MC SEE COMMENTS Last administered on 11/01/19at 02:46; Start 10/30/19 at 09:15; Stop 11/02/19 at 07:41; Status DC Ciprofloxacin/ Dextrose 200 ml @ 200 mls/hr Q12HR IV Last administered on 11/02/19at 20:44; Start 10/30/19 at 10:00 Vancomycin HCl 2 gm/Sodium Chloride 500 ml @ 250 mls/hr 1X ONCE IV Last administered on 10/30/19at 10:34; Start 10/30/19 at 10:00; Stop 10/30/19 at 11:59; Status DC Sodium Chloride 90 meq/Potassium Chloride 30 meq/ Potassium Acetate 30 meq/Magnesium Sulfate 15 meq/ Multivitamins 10 ml/Chromium/ Copper/Manganese/ Seleni/Zn 1 ml/ Insulin Human Regular 15 unit/ Total Parenteral Nutrition/Amino Acids/Dextrose/ Fat Emulsion Intravenous 1,680 ml @ 70 mls/hr TPN CONT IV Last administered on 10/30/19at 22:02; Start 10/30/19 at 22:00; Stop 10/31/19 at 21:59; Status DC Diphenhydramine HCl (Benadryl) 25 mg 1X ONCE IVP Last administered on at 14:26; Start 10/30/19 at 14:30; Stop 10/30/19 at 14:31; Status DC Vancomycin HCl 1.5 gm/Sodium Chloride 500 ml @ 250 mls/hr Q8H IV Last administered on 10/31/19at 03:08; Start 10/30/19 at 18:30; Stop 10/31/19 at 12:24; Status DC Vancomycin HCl (Vancomycin Trough Level) 1 each 1X ONCE MC Last administered on 10/31/19at 10:00; Start 10/31/19 at 10:00; Stop 10/31/19 at 10:01; Status DC Sodium Chloride 90 meq/Potassium Chloride 30 meq/ Potassium Acetate 30 meq/Magnesium Sulfate 15 meq/ Multivitamins 10 ml/Chromium/ Copper/Manganese/ Seleni/Zn 1 ml/ Insulin Human Regular 15 unit/ Total Parenteral Nutrition/Amino Acids/Dextrose/ Fat Emulsion Intravenous 1,680 ml @ 70 mls/hr TPN CONT IV Last administered on 10/31/19at 22:13; Start 10/31/19 at 22:00; Stop 11/01/19 at 21:59; Status DC Vancomycin HCl (Vancomycin Random Level) 1 each 1X ONCE MC Last administered on 11/01/19at 01:00; Start 11/01/19 at 01:00; Stop 11/01/19 at 01:01; Status DC Vancomycin HCl 1.5 gm/Sodium Chloride 500 ml @ 250 mls/hr Q12H IV Last administered on 11/01/19at 22:07; Start 11/01/19 at 10:00; Stop 11/02/19 at 07:41; Status DC Vancomycin HCl (Vancomycin Trough Level) 1 each 1X ONCE MC ; Start 11/02/19 at 09:30; Stop 11/02/19 at 09:31; Status Cancel Sodium Chloride 90 meq/Potassium Chloride 30 meq/ Potassium Acetate 30 meq/Magnesium Sulfate 15 meq/ Multivitamins 10 ml/Chromium/ Copper/Manganese/ Seleni/Zn 1 ml/ Insulin Human Regular 15 unit/ Total Parenteral Nutrition/Amino Acids/Dextrose/ Fat Emulsion Intravenous 1,680 ml @ 70 mls/hr TPN CONT IV Last administered on 11/01/19at 22:08; Start 11/01/19 at 22:00; Stop 11/02/19 at 21:59; Status DC Alteplase, Recombinant (Cathflo For Central Catheter Clearance) 1 mg 1X ONCE INT CAT Last administered on 11/01/19at 11:49; Start 11/01/19 at 11:00; Stop 11/01/19 at 11:01; Status DC Daptomycin 500 mg/ Sodium Chloride 50 ml @ 100 mls/hr Q24H IV Last administere d on 11/02/19at 08:59; Start 11/02/19 at 09:00 Sodium Chloride 90 meq/Potassium Chloride 30 meq/ Potassium Acetate 30 meq/Magnesium Sulfate 15 meq/ Multivitamins 10 ml/Chromium/ Copper/Manganese/ Seleni/Zn 1 ml/ Insulin Human Regular 15 unit/ Total Parenteral Nutrition/Amino Acids/Dextrose/ Fat Emulsion Intravenous 1,680 ml @ 70 mls/hr TPN CONT IV Last administered on 11/02/19at 22:55; Start 11/02/19 at 22:00; Stop 11/03/19 at 21:59 Active Scripts Active Reported Bisoprolol Fumarate 5 Mg Tablet 10 Mg PO DAILY Vitals/I & O Vital Sign - Last 24 Hours 11/02/19 11/02/19 11/02/19 11/02/19 11:00 11:55 12:00 12:00 Temp 99.9 99.9 Pulse 120 116 Resp 28 28 B/P (MAP) 132/85 (101) 137/85 (102) Pulse Ox 100 100 100 O2 Delivery Tracheal Collar Tracheal Collar Tracheal Collar Trach Collar O2 Flow Rate 8.0 8.0 11/02/19 11/02/19 11/02/19 11/02/19 13:00 14:00 15:00 16:00 Pulse 118 138 128 Resp 28 28 28 B/P (MAP) 155/91 (112) 130/80 (97) Pulse Ox 100 100 100 O2 Delivery Tracheal Collar Tracheal Collar Tracheal Collar Trach Collar O2 Flow Rate 8.0 11/02/19 11/02/19 11/02/19 11/02/19 16:00 16:09 17:00 18:00 Temp 99.9 99.9 Pulse 142 140 140 Resp 28 28 28 B/P (MAP) 158/91 (113) Pulse Ox 100 100 100 100 O2 Delivery Tracheal Collar Tracheal Collar Tracheal Collar Tracheal Collar O2 Flow Rate 8.0 11/02/19 11/02/19 11/02/19 11/02/19 19:00 20:00 20:00 20:11 Temp 101.4 101.4 Pulse 138 136 Resp 37 34 B/P (MAP) 169/84 (112) 145/80 (101) Pulse Ox 98 100 100 O2 Delivery Tracheal Collar Tracheal Collar Trach Collar Tracheal Collar O2 Flow Rate 8.0 8.0 11/02/19 11/02/19 11/02/19 11/02/19 20:12 21:00 22:00 23:00 Pulse 120 118 102 Resp 29 25 29 B/P (MAP) 133/73 (93) 122/74 (90) 103/92 (96) Pulse Ox 100 100 99 99 O2 Delivery Tracheal Collar Tracheal Collar Tracheal Collar Tracheal Collar O2 Flow Rate 8.0 11/03/19 11/03/19 11/03/19 11/03/19 00:00 00:00 00:05 01:00 Temp 98.1 98.1 Pulse 114 108 Resp 25 24 B/P (MAP) 132/77 (95) 134/79 (97) Pulse Ox 98 99 100 O2 Delivery Tracheal Collar Trach Collar Tracheal Collar Tracheal Collar O2 Flow Rate 8.0 8.0 11/03/19 11/03/19 11/03/19 11/03/19 02:00 03:00 03:34 04:00 Pulse 110 110 Resp 25 36 B/P (MAP) 135/83 (100) 133/81 (98) Pulse Ox 95 98 99 O2 Delivery Tracheal Collar Tracheal Collar Tracheal Collar Trach Collar O2 Flow Rate 8.0 8.0 11/03/19 11/03/19 11/03/19 11/03/19 04:00 05:00 06:00 07:00 Temp 98.5 98.5 Pulse 107 121 120 116 Resp 30 35 36 30 B/P (MAP) 147/86 (106) 160/93 (115) 173/89 (117) 136/83 (100) Pulse Ox 100 96 96 96 O2 Delivery Tracheal Collar Tracheal Collar Tracheal Collar Tracheal Collar 11/03/19 11/03/19 11/03/19 11/03/19 08:00 08:00 08:21 08:27 Temp 99.0 99.0 Pulse 120 Resp 30 B/P (MAP) 150/91 (110) Pulse Ox 100 96 96 O2 Delivery Tracheal Collar Trach Collar O2 Flow Rate 8.0 8.0 8.0 11/03/19 11/03/19 08:51 09:00 Pulse 120 Resp 30 B/P (MAP) 151/80 (103) Pulse Ox 96 96 O2 Delivery Tracheal Collar O2 Flow Rate 8.0 Intake and Output 11/02/19 11/02/19 11/03/19 15:00 23:00 07:00 Intake Total 250 ml 1341 ml 1078 ml Output Total 940 ml 1950 ml 1770 ml Balance -690 ml -609 ml -692 ml Justicifation of Admission Dx: Justifications for Admission: Justification of Admission Dx: Yes ROSS DIAS MD Nov 03, 2019 10:41
--- NOTE | 2019-11-03 10:43 | PDOC ---
Objective: Objective: Nurse asking about restarting tube feeds. Vital Signs: Vital Signs Date Time Temp Pulse Resp B/P (MAP) Pulse Ox O2 Delivery O2 Flow Rate FiO2 11/03/19 09:00 120 30 151/80 (103) 96 Tracheal Collar 11/03/19 08:51 8.0 11/03/19 08:00 99.0 99.0 Labs: Laboratory Tests Test 11/02/19 18:41 11/03/19 00:12 11/03/19 06:15 Glucose (Fingerstick) 141 mg/dL 125 mg/dL 141 mg/dL White Blood Count 8.5 x10^3/uL Red Blood Count 2.61 x10^6/uL Hemoglobin 7.4 g/dL Hematocrit 22.6 % Mean Corpuscular Volume 87 fL Mean Corpuscular Hemoglobin 29 pg Mean Corpuscular Hemoglobin Concent 33 g/dL Red Cell Distribution Width 15.1 % Platelet Count 580 x10^3/uL Neutrophils (%) (Auto) 68 % Lymphocytes (%) (Auto) 14 % Monocytes (%) (Auto) 14 % Eosinophils (%) (Auto) 4 % Basophils (%) (Auto) 0 % Neutrophils # (Auto) 5.8 x10^3/uL Lymphocytes # (Auto) 1.2 x10^3/uL Monocytes # (Auto) 1.2 x10^3/uL Eosinophils # (Auto) 0.3 x10^3/uL Basophils # (Auto) 0.0 x10^3/uL Sodium Level 136 mmol/L Potassium Level 3.9 mmol/L Chloride Level 103 mmol/L Carbon Dioxide Level 29 mmol/L Anion Gap 4 Blood Urea Nitrogen 10 mg/dL Creatinine 0.6 mg/dL Estimated GFR (Cockcroft-Gault) 106.3 Glucose Level 153 mg/dL Calcium Level 8.7 mg/dL BLOOD CULTURE Preliminary NO GROWTH AFTER 4 DAYS PE: GEN: chronically ill LUNGS: trach collar HEART: tachycardic ABD: drains NEURO/PSYCH: waves hello A/P: S/p pancreatic necrosectomy -- Continue support. Justicifation of Admission Dx: Justifications for Admission: Justification of Admission Dx: Yes CYNDEE FALCON Nov 03, 2019 10:43
--- NOTE | 2019-11-03 14:23 | NUR ---
SS following up with discharge planning. SS reviewed pt chart and discussed with pt RN. No new changes. Pt remains on trach collar. Pt is on TPN, IV Cipro, IV Daptomycin, IV Micafungin, and IV Meropenem. Pt has J Tube, chest tube, two Mook drains, and three KAYLIN drains. Pt is self pay pt. SS left message with [employer] requesting assistance with disability application. SS will continue to follow for discharge planning.
[2019-11-03] MEDS: TPN PER PHARMACY MC PRN (14:30)
--- NOTE | 2019-11-03 14:32 | NUR ---
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, 8 inches Weight: 92.908104 kg Current diet: NPO LABS: Sodium: 136 Potassium: 3.9 Chloride: 103 Calcium: 8.7 Corrected Calcium: 11.02 Magnesium: 2.1 CO2: 29 SCr: 0.5 Glucose: 153 Albumin: 1.1 AST: 25 ALT: 37 TPN FORMULA: TPN TYPE: Central Continuous AMINO ACIDS: 85 gm DEXTROSE: 250 gm LIPIDS: 20 gm SODIUM CHLORIDE: 90 mEq SODIUM ACETATE: - mEq SODIUM PHOSPHATE: - mmol POTASSIUM CHLORIDE: 30 mEq POTASSIUM ACETATE: 30 mEq POTASSIUM PHOSPHATE: - mmol MAGNESIUM: 15 mEq CALCIUM: - mEq INSULIN: 15 units MULTIPLE VITAMIN: 10 ml TRACE ELEMENTS: 1 ml ml(s) TPN PLAN: restart tf today. cont tpn today. R: Continue TPN at 70 ml/hr Will monitor electrolytes, glucose, and tolerance to TPN. KRISTIAN APODACA [facility], 11/03/19 [id number]
[2019-11-03] MEDS: IV NORMAL SALINE 1000ML BAG 1,000 ML IV SCH (14:33)
[2019-11-03] MEDS ORDERED: diphenhydrAMINE 50 MG/ML VIAL ONE (18:34)
[2019-11-03] MEDS ORDERED: diphenhydrAMINE 50 MG/ML VIAL IM ONE (18:45)
[2019-11-03] MEDS ORDERED: diphenhydrAMINE 50 MG/ML VIAL IVP ONE (19:00)
[2019-11-03] MEDS ORDERED: TOTAL PARENTERAL NUTRITION IV SCH ×10 (22:00)
[2019-11-03] MEDS ORDERED: DEXTROSE 70% IV SCH ×10 (22:00)
[2019-11-03] MEDS ORDERED: AMINO ACID IV SCH ×10 (22:00)
[2019-11-03] MEDS ORDERED: [UNRECOGNIZED DRUG - OTHER] IV SCH ×10 (22:00)
[2019-11-04] VITALS (22 sets, daily range): BP systolic 136–212; BP diastolic 72–123
[2019-11-04] MEDS: MEROPENEM 500 MG in IV NORMAL SALINE 50ML 50 ML IV SCH ×4 (00:11→18:07)
[2019-11-04] MEDS: IPRATRPIUM/ALBUTEROL 0.5/2.5MG 3 ML NEBU. NEB SCH ×6 (00:11→20:12)
[2019-11-04] MEDS: fentaNYL PF VIAL 100 MCG/2 ML VIAL IV PRN ×3 (00:40→18:08)
[2019-11-04] MEDS: INSULIN LISPRO 300 UNITS/3 ML VIAL. SQ SCH ×4 (05:37→18:00)
[2019-11-04 06:08] LABS: CALCIUM 9.1 mg/dL (8.5-10.1); CREATININE 0.6 mg/dL (0.6-1.0); GFR 106.3; POTASSIUM 4.1 mmol/L (3.5-5.1)
[2019-11-04 06:19] LABS: BASO % 1 % (0-3); EOS # 0.3 x10^3/uL (0.0-0.7); EOS % 3 % (0-3); HEMATOCRIT 21.8 % (36.0-47.0); HEMOGLOBIN 7.2 g/dL (12.0-15.5); LYMPH # 1.2 x10^3/uL (1.0-4.8); LYMPH % 12 % (24-48); MEAN CORPUSCULAR HEMOGLOBIN 29 pg (25-35); MEAN CORPUSCULAR HGB CONC 33 g/dL (31-37); MEAN CORPUSCULAR VOLUME 86 fL (79-100); MONO # 1.6 x10^3/uL (0.0-1.1); MONO % 16 % (0-9); NEUT # 6.9 x10^3/uL (1.8-7.7); NEUT % 69 % (31-73); PLATELET COUNT 625 x10^3/uL (140-400); RED BLOOD COUNT 2.53 x10^6/uL (3.50-5.40); RED CELL DISTRIBUTION WIDTH 15.2 % (11.5-14.5); WHITE BLOOD COUNT 9.9 x10^3/uL (4.0-11.0)
[2019-11-04] MEDS: ACETYLCYSTEINE 20% for RESP TX 600 MG/3 ML. NEB SCH ×2 (07:25→20:00)
--- NOTE | 2019-11-04 07:47 | PDOC ---
Infectious Disease Note Subjective Subjective Patient is awake , off ventilator ROS ROS c/o back pain and abd pain Vital Sign Vital Signs Vital Signs Date Time Temp Pulse Resp B/P (MAP) Pulse Ox O2 Delivery O2 Flow Rate FiO2 11/04/19 07:34 98 Tracheal Collar 8.0 11/04/19 06:00 114 26 155/81 (105) 11/04/19 04:00 99.2 99.2 Physical Exam PHYSICAL EXAM GENERAL: Propped up in bed, awake, weak appearing HEENT: Pupils equal, oral cavity dry. NGT out, NECK: Tracheostomy LUNGS: Diminished aeration bases, CT on left HEART: S1, S2, regular, tachy ABDOMEN: Sightly less distended, bowel sounds hypoactive, soft, goyal x 2, 3 KAYLIN drains, G-J tube and + wound vac : Lind in place EXTREMITIES: Generalized edema, no cyanosis. SCDs & Podus boots bilaterally, SKIN: warm touch. No signs of rash. NEURO: awake, mouthing some words, tracking LUE-PICC without signs of complications LUE art-line out, mottling about old art-line site is improving. RP palpable, cap refill brisk. Labs Lab Laboratory Tests Test 11/03/19 17:27 11/04/19 00:12 11/04/19 05:30 11/04/19 05:36 Glucose (Fingerstick) 136 mg/dL (70-99) 119 mg/dL (70-99) 139 mg/dL (70-99) White Blood Count 9.9 x10^3/uL (4.0-11.0) Red Blood Count 2.53 x10^6/uL (3.50-5.40) Hemoglobin 7.2 g/dL (12.0-15.5) Hematocrit 21.8 % (36.0-47.0) Mean Corpuscular Volume 86 fL (79-100) Mean Corpuscular Hemoglobin 29 pg (25-35) Mean Corpuscular Hemoglobin Concent 33 g/dL (31-37) Red Cell Distribution Width 15.2 % (11.5-14.5) Platelet Count 625 x10^3/uL (140-400) Neutrophils (%) (Auto) 69 % (31-73) Lymphocytes (%) (Auto) 12 % (24-48) Monocytes (%) (Auto) 16 % (0-9) Eosinophils (%) (Auto) 3 % (0-3) Basophils (%) (Auto) 1 % (0-3) Neutrophils # (Auto) 6.9 x10^3/uL (1.8-7.7) Lymphocytes # (Auto) 1.2 x10^3/uL (1.0-4.8) Monocytes # (Auto) 1.6 x10^3/uL (0.0-1.1) Eosinophils # (Auto) 0.3 x10^3/uL (0.0-0.7) Basophils # (Auto) 0.0 x10^3/uL (0.0-0.2) Sodium Level 135 mmol/L (136-145) Potassium Level 4.1 mmol/L (3.5-5.1) Chloride Level 101 mmol/L (98-107) Carbon Dioxide Level 29 mmol/L (21-32) Anion Gap 5 (6-14) Blood Urea Nitrogen 10 mg/dL (7-20) Creatinine 0.6 mg/dL (0.6-1.0) Estimated GFR (Cockcroft-Gault) 106.3 Glucose Level 137 mg/dL (70-99) Calcium Level 9.1 mg/dL (8.5-10.1) Micro BC neg Objective Assessment Patient with prolonged hospitalization more than 3 months Multiple medical problems Multiple surgical procedures S/P Exp. 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 parapsilosis & PSAE (I-merrem/ceftazidime/AZT/cefepime)) Leucocytosis -trending upward Fever Acute gallstone pancreatitis with persistent necrosis - 07/27. CT A/P Increased ascites. 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 status post KAYLIN drain placement; C. parapsilosis. s/p drain 08/23 + yeast & high amylase; s/p additional drain on 08/25. Drains removed. -08/23. fluid devyn parapsilosis fluid, amylase high - 09/23 showed multiple pseudocysts, slight larger on the right. s/p drains x 3, 09/24. + PSAE (MDRO-R Cefepime, Zosyn ALEXANDRA < 64) and yeast, -09/24 s/p drain replacement x 3; fluid cult PSAE (MDRO), yeast; treated -10/29 CT A/P shows smaller fluid collections. Ascites s/p paracentesis 08/02 & 08/23. C. parapsilosis Cholelithiasis with thickening of the gallbladder wall. JUANA, Hyperkalemia, Metabolic acidosis off dialysis Acute hypoxic resp failure. trach/vent. sputum 09/30 + PSAE (I merrem) Pleural effusions s/p left thoracentesis, 08/29. no culture. 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
[2019-11-04] MEDS: MICAFUNGIN 100 MG in IV DEXTROSE 5% 100ML 100 ML IV SCH (08:22)
[2019-11-04] MEDS: PANTOPRAZOLE IV PUSH 40 MG VIAL. IVP SCH (08:23)
[2019-11-04] MEDS: DAPTOmycin (GENERIC) IVPB 500 MG in IV NORMAL SALINE 50ML 50 ML IV SCH (08:23)
[2019-11-04] MEDS: ENOXAPARIN 40 MG/0.4 ML SYRINGE. SQ SCH (08:24)
[2019-11-04] MEDS: ALPRAZolam 0.5 MG TABLET PO PRN ×2 (08:24→18:07)
[2019-11-04] MEDS: CIPROFLOXACIN 400MG PREMIX 200 ML IV SCH ×2 (08:25→21:20)
--- NOTE | 2019-11-04 09:04 | PDOC ---
PULMONARY PROGRESS NOTES Subjective Nothing new today patient with no significant respiratory distress currently on trach shield Vitals Vital Signs Date Time Temp Pulse Resp B/P (MAP) Pulse Ox O2 Delivery O2 Flow Rate FiO2 11/04/19 07:34 98 Tracheal Collar 8.0 11/04/19 06:00 114 26 155/81 (105) 11/04/19 04:00 99.2 99.2 ROS: No Nausea, No Chest Pain, No Increase Cough General: Alert HEENT: Other (trach site ok) Lungs: Crackles Cardiovascular: S1, S2 Abdomen: Soft, Non-tender, Other (multiple KAYLIN drains ) Neuro Exam: Alert Extremities: Other (+1 BLE edema) Skin: Warm Labs Laboratory Tests Test 11/02/19 18:41 11/03/19 00:12 11/03/19 06:15 11/03/19 17:27 Glucose (Fingerstick) 141 mg/dL (70-99) 125 mg/dL (70-99) 141 mg/dL (70-99) 136 mg/dL (70-99) White Blood Count 8.5 x10^3/uL (4.0-11.0) Red Blood Count 2.61 x10^6/uL (3.50-5.40) Hemoglobin 7.4 g/dL (12.0-15.5) Hematocrit 22.6 % (36.0-47.0) Mean Corpuscular Volume 87 fL (79-100) Mean Corpuscular Hemoglobin 29 pg (25-35) Mean Corpuscular Hemoglobin Concent 33 g/dL (31-37) Red Cell Distribution Width 15.1 % (11.5-14.5) Platelet Count 580 x10^3/uL (140-400) Neutrophils (%) (Auto) 68 % (31-73) Lymphocytes (%) (Auto) 14 % (24-48) Monocytes (%) (Auto) 14 % (0-9) Eosinophils (%) (Auto) 4 % (0-3) Basophils (%) (Auto) 0 % (0-3) Neutrophils # (Auto) 5.8 x10^3/uL (1.8-7.7) Lymphocytes # (Auto) 1.2 x10^3/uL (1.0-4.8) Monocytes # (Auto) 1.2 x10^3/uL (0.0-1.1) Eosinophils # (Auto) 0.3 x10^3/uL (0.0-0.7) Basophils # (Auto) 0.0 x10^3/uL (0.0-0.2) Sodium Level 136 mmol/L (136-145) Potassium Level 3.9 mmol/L (3.5-5.1) Chloride Level 103 mmol/L (98-107) Carbon Dioxide Level 29 mmol/L (21-32) Anion Gap 4 (6-14) Blood Urea Nitrogen 10 mg/dL (7-20) Creatinine 0.6 mg/dL (0.6-1.0) Estimated GFR (Cockcroft-Gault) 106.3 Glucose Level 153 mg/dL (70-99) Calcium Level 8.7 mg/dL (8.5-10.1) Test 11/04/19 00:12 11/04/19 05:30 11/04/19 05:36 Glucose (Fingerstick) 119 mg/dL (70-99) 139 mg/dL (70-99) White Blood Count 9.9 x10^3/uL (4.0-11.0) Red Blood Count 2.53 x10^6/uL (3.50-5.40) Hemoglobin 7.2 g/dL (12.0-15.5) Hematocrit 21.8 % (36.0-47.0) Mean Corpuscular Volume 86 fL (79-100) Mean Corpuscular Hemoglobin 29 pg (25-35) Mean Corpuscular Hemoglobin Concent 33 g/dL (31-37) Red Cell Distribution Width 15.2 % (11.5-14.5) Platelet Count 625 x10^3/uL (140-400) Neutrophils (%) (Auto) 69 % (31-73) Lymphocytes (%) (Auto) 12 % (24-48) Monocytes (%) (Auto) 16 % (0-9) Eosinophils (%) (Auto) 3 % (0-3) Basophils (%) (Auto) 1 % (0-3) Neutrophils # (Auto) 6.9 x10^3/uL (1.8-7.7) Lymphocytes # (Auto) 1.2 x10^3/uL (1.0-4.8) Monocytes # (Auto) 1.6 x10^3/uL (0.0-1.1) Eosinophils # (Auto) 0.3 x10^3/uL (0.0-0.7) Basophils # (Auto) 0.0 x10^3/uL (0.0-0.2) Sodium Level 135 mmol/L (136-145) Potassium Level 4.1 mmol/L (3.5-5.1) Chloride Level 101 mmol/L (98-107) Carbon Dioxide Level 29 mmol/L (21-32) Anion Gap 5 (6-14) Blood Urea Nitrogen 10 mg/dL (7-20) Creatinine 0.6 mg/dL (0.6-1.0) Estimated GFR (Cockcroft-Gault) 106.3 Glucose Level 137 mg/dL (70-99) Calcium Level 9.1 mg/dL (8.5-10.1) Laboratory Tests Test 11/03/19 17:27 11/04/19 00:12 11/04/19 05:30 11/04/19 05:36 Glucose (Fingerstick) 136 mg/dL (70-99) 119 mg/dL (70-99) 139 mg/dL (70-99) White Blood Count 9.9 x10^3/uL (4.0-11.0) Red Blood Count 2.53 x10^6/uL (3.50-5.40) Hemoglobin 7.2 g/dL (12.0-15.5) Hematocrit 21.8 % (36.0-47.0) Mean Corpuscular Volume 86 fL (79-100) Mean Corpuscular Hemoglobin 29 pg (25-35) Mean Corpuscular Hemoglobin Concent 33 g/dL (31-37) Red Cell Distribution Width 15.2 % (11.5-14.5) Platelet Count 625 x10^3/uL (140-400) Neutrophils (%) (Auto) 69 % (31-73) Lymphocytes (%) (Auto) 12 % (24-48) Monocytes (%) (Auto) 16 % (0-9) Eosinophils (%) (Auto) 3 % (0-3) Basophils (%) (Auto) 1 % (0-3) Neutrophils # (Auto) 6.9 x10^3/uL (1.8-7.7) Lymphocytes # (Auto) 1.2 x10^3/uL (1.0-4.8) Monocytes # (Auto) 1.6 x10^3/uL (0.0-1.1) Eosinophils # (Auto) 0.3 x10^3/uL (0.0-0.7) Basophils # (Auto) 0.0 x10^3/uL (0.0-0.2) Sodium Level 135 mmol/L (136-145) Potassium Level 4.1 mmol/L (3.5-5.1) Chloride Level 101 mmol/L (98-107) Carbon Dioxide Level 29 mmol/L (21-32) Anion Gap 5 (6-14) Blood Urea Nitrogen 10 mg/dL (7-20) Creatinine 0.6 mg/dL (0.6-1.0) Estimated GFR (Cockcroft-Gault) 106.3 Glucose Level 137 mg/dL (70-99) Calcium Level 9.1 mg/dL (8.5-10.1) Medications Active Scripts Medications Dose Route/Sig Max Daily Dose Days Date Category Bisoprolol Fumarate 5 Mg Tablet 10 Mg PO DAILY 07/04/[address] reviewed 10/30/19, Decreased left-sided effusion after catheter placement. The right-sided effusion has increased as has atelectasis. There has been exchange or placement of multiple drainage tubes and a gastrojejunostomy tube. Both collections are smaller. No significant new abdominal fluid collection is seen. The jejunal component of the gastrojejunostomy tube appears to be looped in the proximal small bowel. ct abdomen /pelvis 09/23 1. Removal of the percutaneous pigtail drainage catheters since the prior exam. Sequela of pancreatitis with extensive pseudocysts again demonstrated, the right-sided collections are slightly larger since the prior exam, the left-sided collections are stable. See above. 2. Moderate to large left pleural effusion with atelectasis and collapse of most of the left lower lobe, stable. Small right pleural effusion is stable. 3. Gallstone. ct chest 10/02 reviewed GRAM NEG COCCOBACILLI:MANY SQUAMOUS EPI CELL:RARE PMN (WBCs):FEW Unless otherwise specified, Testing Performed by: [address] [address] For Inquires, the Physician may contact the Microbiology department at [phone] RESPIRATORY CULTURE Final Final MANY GRAM NEGATIVE RODS on 10/03/19 at 1107 FINAL ID= [PSEUDOMONAS [email or web address]] MICRO CHARGES PSEUDOMONAS AERUGINOSA ANTIMICROBIAL SUSCEPTIBILITY Final Comment NEG ALEXANDRA 56 PSEUDOMONAS AERUGINOSA ANTIBIOTIC RESULT INTERPRETATION AMIKACIN <=16 S AZTREONAM <=4 S CEFTAZIDIME <=1 S CIPROFLOXACIN <=0.25 S CEFEPIME <=2 S CEFTAZIDIME/AVIBACTAM <=4 S GENTAMICIN <=2 S LEVOFLOXACIN <=0.5 S Impression . IMPRESSION: 1. Acute hypoxemic respiratory failure secondary to ARDS status post trach, developed anemia 09/24, blood drainage from RLQ abdomen drain site, and surrounding firmness / developed septic shock 09/24 from abdomen source, required levo / s/p 3 new drains 09/24 with brown color drainage, 2. Gallstone pancreatitis, now with ongoing bleeding from prior drain. Anemic. s/p Tx multiple units over several days 3. septic shock/sepsis, recurrent 09/24, source abdomen. new fever ? aspiration pneumonitis/pneumonia 4. Acute kidney injury-, Off HD--renal function decling. suspect JUANA on CKD due to hypotension , improved now 5. Acute gallstone pancreatitis. 6. Hypoalbuminemia. 7. Moderate persistent effusions, s/p left thora 08/29, reaccumulation of left effusion. O2 requirement not changed. 8. Fever- ,hypotension. suspect recurrent sepsis/ likely pancreatic source. Per ID, per surgery-- 9. Chronic anemia-- ongoing / s/p PRBC 10. Covid 19 testing negative 11. Moderate to large ascites-S/P paracentisis 12.S/P paracentisis with 4 liters removed on 08/03/19 13. S/P IR drain placement on 08/26/2019, removal, re inserted 09/24 14. Depression/Anxiety 15., Fever, per ID 16. Status post chest tube placement, not much drainage 10/17 S/P Exploratory laparotomy, lysis of adhesions, subtotal cholecystectomy with cholangiogram, gastrojejunostomy tube placement, pancreatic necrosectomy leukocytosis- improving Plan . Chest tube continues to drain Continue current support, monitor H&H, afebrile today Chest tube drained a bit after Cathflo Trach shield Up to chair Follow culture Follow surgery input DVT GI prophylaxis ABX per ID f/u BC /resp cultures Continue TPN for nutrition support DVT/GI PPX D/W RN and RT, HARMEET BEE MD Nov 04, 2019 09:04
--- NOTE | 2019-11-04 09:36 | PDOC ---
SURGICAL PROGRESS NOTE Subjective awake d/w nursing, ID Vital Signs Vital Signs Date Time Temp Pulse Resp B/P (MAP) Pulse Ox O2 Delivery O2 Flow Rate FiO2 11/04/19 07:34 98 Tracheal Collar 8.0 11/04/19 06:00 114 26 155/81 (105) 11/04/19 04:00 99.2 99.2 I&O Intake and Output 11/04/19 07:00 Intake Total 1310 ml Output Total 3530 ml Balance -2220 ml IV Total 1310 ml Output Urine Total 1970 ml Chest Tube Drainage Total 40 ml Drainage Total 1520 ml General: Alert, Cooperative (place) Abdomen: Soft, Other (mulitple drains, lower sump drain migrated out) Labs Laboratory Tests Test 11/02/19 18:41 11/03/19 00:12 11/03/19 06:15 11/03/19 17:27 Glucose (Fingerstick) 141 mg/dL (70-99) 125 mg/dL (70-99) 141 mg/dL (70-99) 136 mg/dL (70-99) White Blood Count 8.5 x10^3/uL (4.0-11.0) Red Blood Count 2.61 x10^6/uL (3.50-5.40) Hemoglobin 7.4 g/dL (12.0-15.5) Hematocrit 22.6 % (36.0-47.0) Mean Corpuscular Volume 87 fL (79-100) Mean Corpuscular Hemoglobin 29 pg (25-35) Mean Corpuscular Hemoglobin Concent 33 g/dL (31-37) Red Cell Distribution Width 15.1 % (11.5-14.5) Platelet Count 580 x10^3/uL (140-400) Neutrophils (%) (Auto) 68 % (31-73) Lymphocytes (%) (Auto) 14 % (24-48) Monocytes (%) (Auto) 14 % (0-9) Eosinophils (%) (Auto) 4 % (0-3) Basophils (%) (Auto) 0 % (0-3) Neutrophils # (Auto) 5.8 x10^3/uL (1.8-7.7) Lymphocytes # (Auto) 1.2 x10^3/uL (1.0-4.8) Monocytes # (Auto) 1.2 x10^3/uL (0.0-1.1) Eosinophils # (Auto) 0.3 x10^3/uL (0.0-0.7) Basophils # (Auto) 0.0 x10^3/uL (0.0-0.2) Sodium Level 136 mmol/L (136-145) Potassium Level 3.9 mmol/L (3.5-5.1) Chloride Level 103 mmol/L (98-107) Carbon Dioxide Level 29 mmol/L (21-32) Anion Gap 4 (6-14) Blood Urea Nitrogen 10 mg/dL (7-20) Creatinine 0.6 mg/dL (0.6-1.0) Estimated GFR (Cockcroft-Gault) 106.3 Glucose Level 153 mg/dL (70-99) Calcium Level 8.7 mg/dL (8.5-10.1) Test 11/04/19 00:12 11/04/19 05:30 11/04/19 05:36 Glucose (Fingerstick) 119 mg/dL (70-99) 139 mg/dL (70-99) White Blood Count 9.9 x10^3/uL (4.0-11.0) Red Blood Count 2.53 x10^6/uL (3.50-5.40) Hemoglobin 7.2 g/dL (12.0-15.5) Hematocrit 21.8 % (36.0-47.0) Mean Corpuscular Volume 86 fL (79-100) Mean Corpuscular Hemoglobin 29 pg (25-35) Mean Corpuscular Hemoglobin Concent 33 g/dL (31-37) Red Cell Distribution Width 15.2 % (11.5-14.5) Platelet Count 625 x10^3/uL (140-400) Neutrophils (%) (Auto) 69 % (31-73) Lymphocytes (%) (Auto) 12 % (24-48) Monocytes (%) (Auto) 16 % (0-9) Eosinophils (%) (Auto) 3 % (0-3) Basophils (%) (Auto) 1 % (0-3) Neutrophils # (Auto) 6.9 x10^3/uL (1.8-7.7) Lymphocytes # (Auto) 1.2 x10^3/uL (1.0-4.8) Monocytes # (Auto) 1.6 x10^3/uL (0.0-1.1) Eosinophils # (Auto) 0.3 x10^3/uL (0.0-0.7) Basophils # (Auto) 0.0 x10^3/uL (0.0-0.2) Sodium Level 135 mmol/L (136-145) Potassium Level 4.1 mmol/L (3.5-5.1) Chloride Level 101 mmol/L (98-107) Carbon Dioxide Level 29 mmol/L (21-32) Anion Gap 5 (6-14) Blood Urea Nitrogen 10 mg/dL (7-20) Creatinine 0.6 mg/dL (0.6-1.0) Estimated GFR (Cockcroft-Gault) 106.3 Glucose Level 137 mg/dL (70-99) Calcium Level 9.1 mg/dL (8.5-10.1) Laboratory Tests Test 11/03/19 17:27 11/04/19 00:12 11/04/19 05:30 11/04/19 05:36 Glucose (Fingerstick) 136 mg/dL (70-99) 119 mg/dL (70-99) 139 mg/dL (70-99) White Blood Count 9.9 x10^3/uL (4.0-11.0) Red Blood Count 2.53 x10^6/uL (3.50-5.40) Hemoglobin 7.2 g/dL (12.0-15.5) Hematocrit 21.8 % (36.0-47.0) Mean Corpuscular Volume 86 fL (79-100) Mean Corpuscular Hemoglobin 29 pg (25-35) Mean Corpuscular Hemoglobin Concent 33 g/dL (31-37) Red Cell Distribution Width 15.2 % (11.5-14.5) Platelet Count 625 x10^3/uL (140-400) Neutrophils (%) (Auto) 69 % (31-73) Lymphocytes (%) (Auto) 12 % (24-48) Monocytes (%) (Auto) 16 % (0-9) Eosinophils (%) (Auto) 3 % (0-3) Basophils (%) (Auto) 1 % (0-3) Neutrophils # (Auto) 6.9 x10^3/uL (1.8-7.7) Lymphocytes # (Auto) 1.2 x10^3/uL (1.0-4.8) Monocytes # (Auto) 1.6 x10^3/uL (0.0-1.1) Eosinophils # (Auto) 0.3 x10^3/uL (0.0-0.7) Basophils # (Auto) 0.0 x10^3/uL (0.0-0.2) Sodium Level 135 mmol/L (136-145) Potassium Level 4.1 mmol/L (3.5-5.1) Chloride Level 101 mmol/L (98-107) Carbon Dioxide Level 29 mmol/L (21-32) Anion Gap 5 (6-14) Blood Urea Nitrogen 10 mg/dL (7-20) Creatinine 0.6 mg/dL (0.6-1.0) Estimated GFR (Cockcroft-Gault) 106.3 Glucose Level 137 mg/dL (70-99) Calcium Level 9.1 mg/dL (8.5-10.1) Problem List Problems Medical Problems: (1) Acute pancreatitis Status: Acute (2) Cholelithiasis Status: Acute Assessment/Plan start slow TF will review with Dr Servin regarding drains Justicifation of Admission Dx: Justifications for Admission: Justification of Admission Dx: Yes 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 IS TECHNICIAN Nov 04, 2019 09:36
[2019-11-04] MEDS: TPN PER PHARMACY MC PRN (10:02)
--- NOTE | 2019-11-04 10:42 | PDOC ---
PROGRESS NOTES Chief Complaint Chief Complaint A/P Acute hypoxic Respiratory failure required mechanical ventilation Tracheostomy bilateral pleural effusions/pulm edema s/p Throacentesis on 10/03/2019 Severe Acute gallstone pancreatitis (not a surgical candidate at this time) with necrosis Acute kidney failure now requiring dialysis Gallstones (Calculus of gallbladder with acute cholecystitis without obstruction) HTN Intractable pain Intractable nausea Covid 19 negative. Acute on chronic anemia EEG: No seizure activity Fever - intermittent ? Ileus with vomiting Abd distention - U/S and CT reviewed s/p 0.4 L of opaque, debris-containing ascites was removed 08/23 Acute pancreatitis with persistent necrosis Gallstone pancreatitis with necrosis. -CT A/P 09/23 showed multiple pseudocysts, slight larger on the right. s/p drains x 3, 09/24. + PSAE (MDRO-R Cefepime, Zosyn ALEXANDRA < 64) and yeast, -s/p drain 08/14. C. parapsilosis. s/p drain 08/23 + yeast & high amylase; s/p additional drain on 08/25. Drains removed. Ascites s/p paracentesis 08/02 & 08/23. C. parapsilosis JUANA. off HD. A large fluid collection in the pancreatic bed has slightly decreased in size, described below, the pancreas itself is difficult to visualize, which could be due to necrosis or obscuration of pancreatic parenchyma from the surrounding fluid collection.10/02 - 08/14 status post KAYLIN drain placement + C paropsilosis. s/p additional drains 08/25 Anemia - S/p PRBCs. Cholelithiasis with thickening of the gallbladder wall. Leucocytosis improving JUANA, hyperkalemia, Metabolic acidosis off dialysis hypocalcemia Prediabetes HTN s/p trach Hyperglycemia severe protein-caloric malnutrition Moderate to large left pleural effusion with atelectasis and collapse of most of the left lower lobe, stable Dispo - ICU, critically ill Chest tube draining TPN per nutrition follow cultures. meropenam, cipro, micafungin per ID Continue trach shield ID, gen sx, GI, pulm following DVT GI prophylaxis Continue TPN for nutrition support poor prognosis follow labs xanax for anxiety prn History of Present Illness History of Present Illness secretions this AM. no fevers overnight Vitals Vitals Vital Signs Date Time Temp Pulse Resp B/P (MAP) Pulse Ox O2 Delivery O2 Flow Rate FiO2 11/04/19 10:00 120 30 152/97 (115) 99 Tracheal Collar 11/04/19 08:00 8.0 11/04/19 08:00 98.5 98.5 Physical Exam Physical Exam GENERAL: Propped up in bed, awake, weak appearing HEENT: Pupils equal, oral cavity dry. NGT out, NECK: Tracheostomy LUNGS: Diminished aeration bases, CT on left HEART: S1, S2, regular, tachy ABDOMEN: Sightly less distended, bowel sounds hypoactive, soft, goyal x 2, 3 KAYLIN drains, G-J tube and + wound vac : Lind in place EXTREMITIES: Generalized edema, no cyanosis. SCDs & Podus boots bilaterally, SKIN: warm touch. No signs of rash. NEURO: awake, mouthing some words, tracking LUE-PICC without signs of complications LUE art-line out, mottling about old art-line site is improving. RP palpable, cap refill brisk. General: Alert, Cooperative (place) Heart: Regular rate (SR/ST), Other (distant heart sounds) Lungs: Crackles Abdomen: Soft, Other (mulitple drains, lower sump drain migrated out) Extremities: Other (Diffuse edema) Skin: No rashes, No significant lesion Labs LABS Laboratory Tests Test 11/03/19 17:27 11/04/19 00:12 11/04/19 05:30 11/04/19 05:36 Glucose (Fingerstick) 136 mg/dL (70-99) 119 mg/dL (70-99) 139 mg/dL (70-99) White Blood Count 9.9 x10^3/uL (4.0-11.0) Red Blood Count 2.53 x10^6/uL (3.50-5.40) Hemoglobin 7.2 g/dL (12.0-15.5) Hematocrit 21.8 % (36.0-47.0) Mean Corpuscular Volume 86 fL (79-100) Mean Corpuscular Hemoglobin 29 pg (25-35) Mean Corpuscular Hemoglobin Concent 33 g/dL (31-37) Red Cell Distribution Width 15.2 % (11.5-14.5) Platelet Count 625 x10^3/uL (140-400) Neutrophils (%) (Auto) 69 % (31-73) Lymphocytes (%) (Auto) 12 % (24-48) Monocytes (%) (Auto) 16 % (0-9) Eosinophils (%) (Auto) 3 % (0-3) Basophils (%) (Auto) 1 % (0-3) Neutrophils # (Auto) 6.9 x10^3/uL (1.8-7.7) Lymphocytes # (Auto) 1.2 x10^3/uL (1.0-4.8) Monocytes # (Auto) 1.6 x10^3/uL (0.0-1.1) Eosinophils # (Auto) 0.3 x10^3/uL (0.0-0.7) Basophils # (Auto) 0.0 x10^3/uL (0.0-0.2) Sodium Level 135 mmol/L (136-145) Potassium Level 4.1 mmol/L (3.5-5.1) Chloride Level 101 mmol/L (98-107) Carbon Dioxide Level 29 mmol/L (21-32) Anion Gap 5 (6-14) Blood Urea Nitrogen 10 mg/dL (7-20) Creatinine 0.6 mg/dL (0.6-1.0) Estimated GFR (Cockcroft-Gault) 106.3 Glucose Level 137 mg/dL (70-99) Calcium Level 9.1 mg/dL (8.5-10.1) Assessment and Plan Assessmemt and Plan Problems Medical Problems: (1) Acute pancreatitis Status: Acute (2) Cholelithiasis Status: Acute Comment Review of Relevant I have reviewed the following items kolby (where applicable) has been applied. Labs Laboratory Tests Test 11/02/19 18:41 11/03/19 00:12 11/03/19 06:15 11/03/19 17:27 Glucose (Fingerstick) 141 mg/dL (70-99) 125 mg/dL (70-99) 141 mg/dL (70-99) 136 mg/dL (70-99) White Blood Count 8.5 x10^3/uL (4.0-11.0) Red Blood Count 2.61 x10^6/uL (3.50-5.40) Hemoglobin 7.4 g/dL (12.0-15.5) Hematocrit 22.6 % (36.0-47.0) Mean Corpuscular Volume 87 fL (79-100) Mean Corpuscular Hemoglobin 29 pg (25-35) Mean Corpuscular Hemoglobin Concent 33 g/dL (31-37) Red Cell Distribution Width 15.1 % (11.5-14.5) Platelet Count 580 x10^3/uL (140-400) Neutrophils (%) (Auto) 68 % (31-73) Lymphocytes (%) (Auto) 14 % (24-48) Monocytes (%) (Auto) 14 % (0-9) Eosinophils (%) (Auto) 4 % (0-3) Basophils (%) (Auto) 0 % (0-3) Neutrophils # (Auto) 5.8 x10^3/uL (1.8-7.7) Lymphocytes # (Auto) 1.2 x10^3/uL (1.0-4.8) Monocytes # (Auto) 1.2 x10^3/uL (0.0-1.1) Eosinophils # (Auto) 0.3 x10^3/uL (0.0-0.7) Basophils # (Auto) 0.0 x10^3/uL (0.0-0.2) Sodium Level 136 mmol/L (136-145) Potassium Level 3.9 mmol/L (3.5-5.1) Chloride Level 103 mmol/L (98-107) Carbon Dioxide Level 29 mmol/L (21-32) Anion Gap 4 (6-14) Blood Urea Nitrogen 10 mg/dL (7-20) Creatinine 0.6 mg/dL (0.6-1.0) Estimated GFR (Cockcroft-Gault) 106.3 Glucose Level 153 mg/dL (70-99) Calcium Level 8.7 mg/dL (8.5-10.1) Test 11/04/19 00:12 11/04/19 05:30 11/04/19 05:36 Glucose (Fingerstick) 119 mg/dL (70-99) 139 mg/dL (70-99) White Blood Count 9.9 x10^3/uL (4.0-11.0) Red Blood Count 2.53 x10^6/uL (3.50-5.40) Hemoglobin 7.2 g/dL (12.0-15.5) Hematocrit 21.8 % (36.0-47.0) Mean Corpuscular Volume 86 fL (79-100) Mean Corpuscular Hemoglobin 29 pg (25-35) Mean Corpuscular Hemoglobin Concent 33 g/dL (31-37) Red Cell Distribution Width 15.2 % (11.5-14.5) Platelet Count 625 x10^3/uL (140-400) Neutrophils (%) (Auto) 69 % (31-73) Lymphocytes (%) (Auto) 12 % (24-48) Monocytes (%) (Auto) 16 % (0-9) Eosinophils (%) (Auto) 3 % (0-3) Basophils (%) (Auto) 1 % (0-3) Neutrophils # (Auto) 6.9 x10^3/uL (1.8-7.7) Lymphocytes # (Auto) 1.2 x10^3/uL (1.0-4.8) Monocytes # (Auto) 1.6 x10^3/uL (0.0-1.1) Eosinophils # (Auto) 0.3 x10^3/uL (0.0-0.7) Basophils # (Auto) 0.0 x10^3/uL (0.0-0.2) Sodium Level 135 mmol/L (136-145) Potassium Level 4.1 mmol/L (3.5-5.1) Chloride Level 101 mmol/L (98-107) Carbon Dioxide Level 29 mmol/L (21-32) Anion Gap 5 (6-14) Blood Urea Nitrogen 10 mg/dL (7-20) Creatinine 0.6 mg/dL (0.6-1.0) Estimated GFR (Cockcroft-Gault) 106.3 Glucose Level 137 mg/dL (70-99) Calcium Level 9.1 mg/dL (8.5-10.1) Laboratory Tests Test 11/03/19 17:27 11/04/19 00:12 11/04/19 05:30 11/04/19 05:36 Glucose (Fingerstick) 136 mg/dL (70-99) 119 mg/dL (70-99) 139 mg/dL (70-99) White Blood Count 9.9 x10^3/uL (4.0-11.0) Red Blood Count 2.53 x10^6/uL (3.50-5.40) Hemoglobin 7.2 g/dL (12.0-15.5) Hematocrit 21.8 % (36.0-47.0) Mean Corpuscular Volume 86 fL (79-100) Mean Corpuscular Hemoglobin 29 pg (25-35) Mean Corpuscular Hemoglobin Concent 33 g/dL (31-37) Red Cell Distribution Width 15.2 % (11.5-14.5) Platelet Count 625 x10^3/uL (140-400) Neutrophils (%) (Auto) 69 % (31-73) Lymphocytes (%) (Auto) 12 % (24-48) Monocytes (%) (Auto) 16 % (0-9) Eosinophils (%) (Auto) 3 % (0-3) Basophils (%) (Auto) 1 % (0-3) Neutrophils # (Auto) 6.9 x10^3/uL (1.8-7.7) Lymphocytes # (Auto) 1.2 x10^3/uL (1.0-4.8) Monocytes # (Auto) 1.6 x10^3/uL (0.0-1.1) Eosinophils # (Auto) 0.3 x10^3/uL (0.0-0.7) Basophils # (Auto) 0.0 x10^3/uL (0.0-0.2) Sodium Level 135 mmol/L (136-145) Potassium Level 4.1 mmol/L (3.5-5.1) Chloride Level 101 mmol/L (98-107) Carbon Dioxide Level 29 mmol/L (21-32) Anion Gap 5 (6-14) Blood Urea Nitrogen 10 mg/dL (7-20) Creatinine 0.6 mg/dL (0.6-1.0) Estimated GFR (Cockcroft-Gault) 106.3 Glucose Level 137 mg/dL (70-99) Calcium Level 9.1 mg/dL (8.5-10.1) Microbiology 11/02/19 Blood Culture - Preliminary, Resulted NO GROWTH AFTER 1 DAY 10/30/19 Gram Stain Evaluation - Final, Complete 10/30/19 Respiratory Culture - Final, Complete 10/30/19 Antimicrobic Susceptibility - Final, Complete 10/18/19 Gram Stain - Final, Complete 10/18/19 Aerobic and Anaerobic Culture - Final, Complete 10/18/19 Antimicrobic Susceptibility - Final, Complete 10/03/19 Gram Stain - Final, Complete 10/03/19 Aerobic and Anaerobic Culture - Final, Complete 09/25/19 Urine Culture - Final, Complete 09/17/19 Gram Stain - Final, Complete 09/17/19 Aerobic Culture - Final, Complete Medications Current Medications Sodium Chloride 1,000 ml @ 1,000 mls/hr Q1H IV Last administered on 07/04/19at 03:00; Start 07/04/19 at 03:00; Stop 07/04/19 at 03:59; Status DC Ondansetron HCl (Zofran) 4 mg 1X ONCE IVP Last administered on 07/04/19at 03:27; Start 07/04/19 at 03:00; Stop 07/04/19 at 03:01; Status DC Morphine Sulfate (Morphine Sulfate) 4 mg 1X ONCE IV ; Start 07/04/19 at 03:00; Stop 07/04/19 at 03:01; Status Cancel Ketorolac Tromethamine (Toradol 30mg Vial) 30 mg 1X ONCE IV Last administered on 07/04/19at 02:54; Start 07/04/19 at 03:00; Stop 07/04/19 at 03:01; Status DC Fentanyl Citrate (Fentanyl 2ml Vial) 25 mcg 1X ONCE IVP Last administered on 07/04/19at 03:23; Start 07/04/19 at 03:30; Stop 07/04/19 at 03:31; Status DC Fentanyl Citrate (Fentanyl 2ml Vial) 100 mcg STK-MED ONCE .ROUTE ; Start 07/04/19 at 03:18; Stop 07/04/19 at 03:18; Status DC Iohexol (Omnipaque 350 Mg/ml) 90 ml 1X ONCE IV Last administered on 07/04/19at 03:25; Start 07/04/19 at 03:30; Stop 07/04/19 at 03:31; Status DC Info (CONTRAST GIVEN -- Rx MONITORING) 1 each PRN DAILY PRN MC SEE COMMENTS; Start 07/04/19 at 03:30; Stop 07/06/19 at 03:29; Status DC Hydromorphone HCl (Dilaudid) 0.5 mg 1X ONCE IV Last administered on 07/04/19at 03:55; Start 07/04/19 at 04:30; Stop 07/04/19 at 04:32; Status DC Ondansetron HCl (Zofran) 4 mg PRN Q8HRS PRN IV NAUSEA/VOMITING 1ST CHOICE; Start 07/04/19 at 05:00; Stop 07/04/19 at 09:27; Status DC Morphine Sulfate (Morphine Sulfate) 2 mg PRN Q2HR PRN IV SEVERE PAIN 7-10 Last administered on 07/05/19at 12:26; Start 07/04/19 at 05:00; Stop 07/05/19 at 14:15; Status DC Sodium Chloride 1,000 ml @ 125 mls/hr Q8H IV Last administered on 07/04/19at 20:56; Start 07/04/19 at 05:00; Stop 07/05/19 at 04:59; Status DC Hydromorphone HCl (Dilaudid) 0.5 mg PRN Q3HRS PRN IV SEVERE PAIN 7-10 Last administered on 07/05/19at 10:06; Start 07/04/19 at 05:00; Stop 07/05/19 at 12:01; Status DC Piperacillin Sod/ Tazobactam Sod 4.5 gm/Sodium Chloride 100 ml @ 200 mls/hr 1X ONCE IV Last administered on 07/04/19at 05:44; Start 07/04/19 at 06:00; Stop 07/04/19 at 06:29; Status DC Ondansetron HCl (Zofran) 4 mg PRN Q4HRS PRN IV NAUSEA/VOMITING 1ST CHOICE Last administered on 11/03/19at 08:18; Start 07/04/19 at 09:30 Insulin Human Lispro (HumaLOG) 0-9 UNITS Q6HRS SQ Last administered on 10/30/19 at 12:43; Start 07/04/19 at 09:30 Dextrose (Dextrose 50%-Water Syringe) 12.5 gm PRN Q15MIN PRN IV SEE COMMENTS; Start 07/04/19 at 09:30 Pantoprazole Sodium (PROTONIX VIAL for IV PUSH) 40 mg DAILYAC IVP Last administered on 11/04/19at 08:23; Start 07/04/19 at 11:30 Prochlorperazine Edisylate (Compazine) 10 mg PRN Q6HRS PRN IV NAUSEA/VOMITING, 2nd CHOICE Last administered on 10/31/19at 20:17; Start 07/04/19 at 17:45 Atenolol (Tenormin) 100 mg DAILY PO ; Start 07/05/19 at 09:00; Stop 07/04/19 at 20:08; Status DC Metoprolol Tartrate (Lopressor Vial) 2.5 mg Q6HRS IVP Last administered on 07/05/19at 05:51; Start 07/04/19 at 20:15; Stop 07/05/19 at 10:02; Status DC Metoprolol Tartrate (Lopressor Vial) 5 mg Q6HRS IVP Last administered on 07/14/19at 00:12; Start 07/05/19 at 10:15; Stop 07/16/19 at 08:48; Status DC Hydromorphone HCl (Dilaudid) 1 mg PRN Q3HRS PRN IV SEVERE PAIN 7-10 Last a dministered on 07/11/19at 05:13; Start 07/05/19 at 12:00; Stop 07/19/19 at 00:25; Status DC Lidocaine HCl (Buffered Lidocaine 1%) 3 ml STK-MED ONCE .ROUTE ; Start 07/05/19 at 12:55; Stop 07/05/19 at 12:56; Status DC Albumin Human 500 ml @ 125 mls/hr 1X ONCE IV Last administered on 07/05/19at 14:33; Start 07/05/19 at 14:30; Stop 07/05/19 at 18:32; Status DC Norepinephrine Bitartrate 8 mg/ Dextrose 258 ml @ 17.299 mls/ hr CONT PRN IV PER PROTOCOL Last administered on 08/02/19at 12:48; Start 07/05/19 at 15:30; Stop 08/05/19 at 09:19; Status DC Sodium Chloride 1,000 ml @ 125 mls/hr Q8H IV Last administered on 07/05/19at 21:04; Start 07/05/19 at 16:00; Stop 07/06/19 at 02:42; Status DC Albumin Human 500 ml @ 125 mls/hr PRN BID PRN IV After every 2L NSS & BP < 90mm Last administered on 10/18/19at 16:06; Start 07/05/19 at 16:00; Stop 10/21/19 at 09:30; Status DC Iohexol (Omnipaque 300 Mg/ml) 60 ml 1X ONCE IV Last administered on 07/05/19at 17:20; Start 07/05/19 at 17:00; Stop 07/05/19 at 17:01; Status DC Info (CONTRAST GIVEN -- Rx MONITORING) 1 each PRN DAILY PRN MC SEE COMMENTS; Start 07/05/19 at 17:00; Stop 07/07/19 at 16:59; Status DC Meropenem 1 gm/ Sodium Chloride 100 ml @ 200 mls/hr Q8HRS IV Last administered on 07/06/19at 05:45; Start 07/05/19 at 20:00; Stop 07/06/19 at 08:48; Status DC Furosemide (Lasix) 40 mg 1X ONCE IVP Last administered on 07/05/19at 22:12; Start 07/05/19 at 22:30; Stop 07/05/19 at 22:31; Status DC Calcium Chloride 1000 mg/Sodium Chloride 110 ml @ 220 mls/hr 1X ONCE IV Last administered on 07/05/19at 22:11; Start 07/05/19 at 22:30; Stop 07/05/19 at 22:59; Status DC Albuterol Sulfate (Ventolin Neb Soln) 2.5 mg 1X ONCE NEB Last administered on 07/06/19at 00:56; Start 07/05/19 at 22:30; Stop 07/05/19 at 22:31; Status DC Insulin Human Regular (HumuLIN R VIAL) 5 unit 1X ONCE IV Last administered on 07/05/19at 22:14; Start 07/05/19 at 22:30; Stop 07/05/19 at 22:31; Status DC Magnesium Sulfate 50 ml @ 25 mls/hr 1X ONCE IV Last administered on 07/06/19at 02:57; Start 07/06/19 at 03:00; Stop 07/06/19 at 04:59; Status DC Calcium Gluconate 1000 mg/Sodium Chloride 110 ml @ 220 mls/hr 1X ONCE IV Last administered on 07/06/19at 02:46; Start 07/06/19 at 03:00; Stop 07/06/19 at 03:29; Status DC Sodium Chloride 1,000 ml @ 200 mls/hr Q5H IV Last administered on 07/06/19at 02:46; Start 07/06/19 at 03:00; Stop 07/06/19 at 10:21; Status DC Calcium Gluconate 1000 mg/Sodium Chloride 110 ml @ 220 mls/hr 1X ONCE IV Last administered on 07/06/19at 03:21; Start 07/06/19 at 03:30; Stop 07/06/19 at 03:59; Status DC Sodium Bicarbonate 50 meq/Sodium Chloride 1,050 ml @ 75 mls/hr Q14H IV Last administered on 07/10/19at 21:10; Start 07/06/19 at 07:30; Stop 07/11/19 at 10:28; Status DC Calcium Gluconate 2000 mg/Sodium Chloride 120 ml @ 220 mls/hr 1X ONCE IV Last administered on 07/06/19at 09:05; Start 07/06/19 at 07:30; Stop 07/06/19 at 08:02; Status DC Lidocaine HCl (Xylocaine-Mpf 1% 2ml Vial) 2 ml STK-MED ONCE .ROUTE ; Start 07/06/19 at 08:47; Stop 07/06/19 at 08:47; Status DC Meropenem 500 mg/ Sodium Chloride 50 ml @ 100 mls/hr Q12HR IV Last administered on 07/11/19at 21:01; Start 07/06/19 at 18:00; Stop 07/12/19 at 07:58; Status DC Lidocaine HCl (Buffered Lidocaine 1%) 3 ml STK-MED ONCE .ROUTE ; Start 07/06/19 at 09:46; Stop 07/06/19 at 09:46; Status DC Lidocaine HCl (Buffered Lidocaine 1%) 6 ml 1X ONCE INJ Last administered on 07/06/19at 10:26; Start 07/06/19 at 10:15; Stop 07/06/19 at 10:16; Status DC Info (Tpn Per Pharmacy) 1 each PRN DAILY PRN MC SEE COMMENTS Last administered on 11/04/19at 10:02; Start 07/06/19 at 12:00 Sodium Chloride 1,000 ml @ 1,000 mls/hr Q1H PRN IV hypotension; Start 07/06/19 at 12:07; Stop 07/06/19 at 18:06; Status DC Diphenhydramine HCl (Benadryl) 25 mg 1X PRN PRN IV ITCHING; Start 07/06/19 at 12:15; Stop 07/07/19 at 12:14; Status DC Diphenhydramine HCl (Benadryl) 25 mg 1X PRN PRN IV ITCHING; Start 07/06/19 at 12:15; Stop 07/07/19 at 12:14; Status DC Sodium Chloride 1,000 ml @ 400 mls/hr Q2H30M PRN IV PATENCY; Start 07/06/19 at 12:07; Stop 07/07/19 at 00:06; Status DC Info (PHARMACY MONITORING -- do not chart) 1 each PRN DAILY PRN MC SEE COMMENTS; Start 07/06/19 at 12:15; Stop 07/08/19 at 08:13; Status DC Sodium Chloride 90 meq/Calcium Gluconate 10 meq/ Multivitamins 10 ml/Chromium/ Copper/Manganese/ Seleni/Zn 1 ml/ Total Parenteral Nutrition/Amino Acids/Dextrose/ Fat Emulsion Intravenous 55.005 ml @ 2.292 mls/hr TPN CONT IV ; Start 07/06/19 at 22:00; Stop 07/06/19 at 12:33; Status DC Info (Tpn Per Pharmacy) 1 each PRN DAILY PRN MC SEE COMMENTS; Start 07/06/19 at 12:30; Status UNV Sodium Chloride 90 meq/Calcium Gluconate 10 meq/ Multivitamins 10 ml/Chromium/ Copper/Manganese/ Seleni/Zn 0.5 ml/ Total Parenteral Nutrition/Amino Acids/Dextrose/ Fat Emulsion Intravenous 1,512 ml @ 63 mls/hr TPN CONT IV Last administered on 07/06/19at 22:06; Start 07/06/19 at 22:00; Stop 07/07/19 at 21:59; Status DC Calcium Carbonate/ Glycine (Tums) 500 mg PRN AFTMEALHC PRN PO INDIGESTION; Start 07/06/19 at 17:45; Stop 08/31/19 at 10:25; Status DC Calcium Gluconate (Calcium Gluconate) 2,000 mg 1X ONCE IVP Last administered on 07/07/19at 02:19; Start 07/07/19 at 02:15; Stop 07/07/19 at 02:16; Status DC Calcium Chloride 3000 mg/Sodium Chloride 1,030 ml @ 50 mls/hr [id number] IV Last administered on 07/09/19at 02:17; Start 07/07/19 at 08:00; Stop 07/09/19 at 15:23; Status DC Lorazepam (Ativan Inj) 1 mg PRN Q4HRS PRN IVP ANXIETY / AGITATION, 2nd choic Last administered on 08/05/19at 03:51; Start 07/07/19 at 09:00; Stop 08/05/19 at 09:19; Status DC Sodium Chloride 1,000 ml @ 1,000 mls/hr Q1H PRN IV hypotension; Start 07/07/19 at 08:56; Stop 07/07/19 at 14:55; Status DC Albumin Human 200 ml @ 200 mls/hr 1X PRN PRN IV Hypotension; Start 07/07/19 at 09:00; Stop 07/07/19 at 14:59; Status DC Diphenhydramine HCl (Benadryl) 25 mg 1X PRN PRN IV ITCHING; Start 07/07/19 at 09:00; Stop 07/08/19 at 08:59; Status DC Diphenhydramine HCl (Benadryl) 25 mg 1X PRN PRN IV ITCHING; Start 07/07/19 at 09:00; Stop 07/08/19 at 08:59; Status DC Sodium Chloride 1,000 ml @ 400 mls/hr Q2H30M PRN IV PATENCY; Start 07/07/19 at 08:56; Stop 07/07/19 at 20:55; Status DC Info (PHARMACY MONITORING -- do not chart) 1 each PRN DAILY PRN MC SEE COMMENTS; Start 07/07/19 at 09:00; Status UNV Info (PHARMACY MONITORING -- do not chart) 1 each PRN DAILY PRN MC SEE COMMENTS; Start 07/07/19 at 09:00; Stop 07/08/19 at 08:13; Status DC Digoxin (Lanoxin) 500 mcg 1X ONCE IV Last administered on 07/07/19at 10:04; Start 07/07/19 at 10:00; Stop 07/07/19 at 10:01; Status DC Digoxin (Lanoxin) 125 mcg 1X ONCE IV Last administered on 07/07/19at 17:10; Start 07/07/19 at 18:00; Stop 07/07/19 at 18:01; Status DC Magnesium Sulfate 100 ml @ 25 mls/hr 1X ONCE IV Last administered on 07/07/19at 12:48; Start 07/07/19 at 13:00; Stop 07/07/19 at 16:59; Status DC Sodium Chloride 90 meq/Magnesium Sulfate 10 meq/ Calcium Gluconate 20 meq/ Multivitamins 10 ml/Chromium/ Copper/Manganese/ Seleni/Zn 0.5 ml/ Total Parenteral Nutrition/Amino Acids/Dextrose/ Fat Emulsion Intravenous 1,512 ml @ 63 mls/hr TPN CONT IV Last administered on 07/07/19at 22:25; Start 07/07/19 at 22:00; Stop 07/08/19 at 21:59; Status DC Sodium Chloride 1,000 ml @ 1,000 mls/hr Q1H PRN IV hypotension; Start 07/08/19 at 08:05; Stop 07/08/19 at 14:04; Status DC Albumin Human 200 ml @ 200 mls/hr 1X ONCE IV Last administered on 07/08/19at 08:57; Start 07/08/19 at 08:15; Stop 07/08/19 at 09:14; Status DC Diphenhydramine HCl (Benadryl) 25 mg 1X PRN PRN IV ITCHING; Start 07/08/19 at 08:15; Stop 07/09/19 at 08:14; Status DC Diphenhydramine HCl (Benadryl) 25 mg 1X PRN PRN IV ITCHING; Start 07/08/19 at 08:15; Stop 07/09/19 at 08:14; Status DC Sodium Chloride 1,000 ml @ 400 mls/hr Q2H30M PRN IV PATENCY; Start 07/08/19 at 08:05; Stop 07/08/19 at 20:04; Status DC Info (PHARMACY MONITORING -- do not chart) 1 each PRN DAILY PRN MC SEE COMMENTS; Start 07/08/19 at 08:15; Stop 07/12/19 at 07:57; Status DC Sodium Chloride 90 meq/Potassium Chloride 15 meq/ Potassium Phosphate 10 mmol/ Magnesium Sulfate 10 meq/Calcium Gluconate 20 meq/ Multivitamins 10 ml/Chromium/ Copper/Manganese/ Seleni/Zn 0.5 ml/ Total Parenteral Nutrition/Amino Acids/Dextrose/ Fat Emulsion Intravenous 1,512 ml @ 63 mls/hr TPN CONT IV Last administered on 07/08/19at 21:01; Start 07/08/19 at 22:00; Stop 07/09/19 at 21:59; Status DC Potassium Chloride/Water 100 ml @ 100 mls/hr 1X ONCE IV Last administered on 07/08/19at 14:09; Start 07/08/19 at 14:00; Stop 07/08/19 at 14:59; Status DC Benzocaine (Hurricaine One) 1 spray 1X ONCE MM Last administered on 07/08/19at 16:38; Start 07/08/19 at 14:30; Stop 07/08/19 at 14:31; Status DC Lidocaine HCl (Glydo (Lidocaine) Jelly) 1 ramu 1X ONCE MM Last administered on 07/08/19at 16:38; Start 07/08/19 at 14:30; Stop 07/08/19 at 14:31; Status DC Linezolid/Dextrose 300 ml @ 300 mls/hr Q12HR IV Last administered on 07/14/19at 21:04; Start 07/08/19 at 20:00; Stop 07/15/19 at 07:50; Status DC Acetaminophen (Tylenol) 650 mg PRN Q6HRS PRN PO MILD PAIN / TEMP; Start 07/09/19 at 03:30; Stop 07/09/19 at 03:36; Status DC Acetaminophen (Tylenol) 650 mg PRN Q6HRS PRN PEG MILD PAIN / TEMP Last administered on 08/04/19at 19:56; Start 07/09/19 at 03:36; Stop 08/31/19 at 10:25; Status DC Sodium Chloride 1,000 ml @ 1,000 mls/hr Q1H PRN IV hypotension; Start 07/09/19 at 07:50; Stop 07/09/19 at 13:49; Status DC Albumin Human 200 ml @ 200 mls/hr 1X PRN PRN IV Hypotension; Start 07/09/19 at 08:00; Stop 07/09/19 at 13:59; Status DC Sodium Chloride (Normal Saline Flush) 10 ml 1X PRN PRN IV AP catheter pack; Start 07/09/19 at 08:00; Stop 07/10/19 at 07:59; Status DC Sodium Chloride (Normal Saline Flush) 10 ml 1X PRN PRN IV [employer] catheter pack; Start 07/09/19 at 08:00; Stop 07/10/19 at 07:59; Status DC Sodium Chloride 1,000 ml @ 400 mls/hr Q2H30M PRN IV PATENCY; Start 07/09/19 at 07:50; Stop 07/09/19 at 19:49; Status DC Info (PHARMACY MONITORING -- do not chart) 1 each PRN DAILY PRN MC SEE COMMENTS; Start 07/09/19 at 08:00; Status UNV Info (PHARMACY MONITORING -- do not chart) 1 each PRN DAILY PRN MC SEE COMMENTS; Start 07/09/19 at 08:00; Stop 07/11/19 at 08:25; Status DC Sodium Chloride 90 meq/Potassium Chloride 15 meq/ Potassium Phosphate 10 mmol/ Magnesium Sulfate 10 meq/Calcium Gluconate 20 meq/ Multivitamins 10 ml/Chromium/ Copper/Manganese/ Seleni/Zn 0.5 ml/ Total Parenteral Nutrition/Amino Acids/Dextrose/ Fat Emulsion Intravenous 1,512 ml @ 63 mls/hr TPN CONT IV Last administered on 07/09/19at 20:57; Start 07/09/19 at 22:00; Stop 07/10/19 at 21:59; Status DC Sodium Chloride 90 meq/Potassium Chloride 15 meq/ Potassium Phosphate 15 mmol/ Magnesium Sulfate 10 meq/Calcium Gluconate 20 meq/ Multivitamins 10 ml/Chromium/ Copper/Manganese/ Seleni/Zn 0.5 ml/ Total Parenteral Nutrition/Amino Ac ids/Dextrose/ Fat Emulsion Intravenous 1,512 ml @ 63 mls/hr TPN CONT IV ; Start 07/10/19 at 22:00; Stop 07/10/19 at 14:16; Status DC Sodium Chloride 90 meq/Potassium Chloride 15 meq/ Potassium Phosphate 15 mmol/ Magnesium Sulfate 10 meq/Calcium Gluconate 20 meq/ Multivitamins 10 ml/Chromium/ Copper/Manganese/ Seleni/Zn 0.5 ml/ Total Parenteral Nutrition/Amino Acids/Dextrose/ Fat Emulsion Intravenous 1,200 ml @ 50 mls/hr TPN CONT IV ; Start 07/10/19 at 22:00; Stop 07/10/19 at 14:17; Status DC Sodium Chloride 90 meq/Potassium Chloride 15 meq/ Potassium Phosphate 10 mmol/ Magnesium Sulfate 10 meq/Calcium Gluconate 20 meq/ Multivitamins 10 ml/Chromium/ Copper/Manganese/ Seleni/Zn 0.5 ml/ Total Parenteral Nutrition/Amino Acids/Dextrose/ Fat Emulsion Intravenous 1,200 ml @ 50 mls/hr TPN CONT IV Last administered on 07/10/19at 23:29; Start 07/10/19 at 22:00; Stop 07/11/19 at 21:59; Status DC Sodium Chloride 1,000 ml @ 1,000 mls/hr Q1H PRN IV hypotension; Start 07/11/19 at 07:28; Stop 07/11/19 at 13:27; Status DC Albumin Human 200 ml @ 200 mls/hr 1X ONCE IV Last administered on 07/11/19at 08:51; Start 07/11/19 at 07:30; Stop 07/11/19 at 08:29; Status DC Diphenhydramine HCl (Benadryl) 25 mg 1X PRN PRN IV ITCHING; Start 07/11/19 at 07:30; Stop 07/12/19 at 07:29; Status DC Diphenhydramine HCl (Benadryl) 25 mg 1X PRN PRN IV ITCHING; Start 07/11/19 at 07:30; Stop 07/12/19 at 07:29; Status DC Sodium Chloride 1,000 ml @ 400 mls/hr Q2H30M PRN IV PATENCY; Start 07/11/19 at 07:28; Stop 07/11/19 at 19:27; Status DC Info (PHARMACY MONITORING -- do not chart) 1 each PRN DAILY PRN MC SEE COMMENTS; Start 07/11/19 at 07:30; Stop 07/22/19 at 13:01; Status DC Metronidazole 100 ml @ 100 mls/hr Q6HRS IV Last administered on 07/27/19at 06:26; Start 07/11/19 at 08:30; Stop 07/27/19 at 09:58; Status DC Micafungin Sodium 100 mg/Dextrose 100 ml @ 100 mls/hr Q24H IV Last administered on 08/18/19at 08:18; Start 07/11/19 at 09:00; Stop 08/18/19 at 20:58; Status DC Propofol 0 ml @ As Directed STK-MED ONCE IV ; Start 07/11/19 at 07:53; Stop 07/11/19 at 07:53; Status DC Etomidate (Amidate) 20 mg STK-MED ONCE IV ; Start 07/11/19 at 07:53; Stop 07/11/19 at 07:54; Status DC Midazolam HCl (Versed) 5 mg STK-MED ONCE .ROUTE ; Start 07/11/19 at 07:57; Stop 07/11/19 at 07:57; Status DC Fentanyl Citrate 30 ml @ 0 mls/hr CONT PRN IV SEE PROTOCOL Last administered on 08/05/19at 06:12; Start 07/11/19 at 08:15; Stop 08/05/19 at 09:19; Status DC Artificial Tears (Artificial Tears) 1 drop PRN Q1HR PRN OU DRY EYE, 1st choice; Start 07/11/19 at 08:15; Stop 08/17/19 at 05:31; Status DC Midazolam HCl 50 mg/Sodium Chloride 50 ml @ 0 mls/hr CONT PRN IV SEE PROTOCOL Last administered on 07/14/19at 22:39; Start 07/11/19 at 08:15; Stop 07/16/19 at 15:59; Status DC Etomidate (Amidate) 8 mg 1X ONCE IV Last administered on 07/11/19at 08:33; Start 07/11/19 at 08:30; Stop 07/11/19 at 08:31; Status DC Succinylcholine Chloride (Anectine) 120 mg 1X ONCE IV Last administered on 07/11/19at 08:34; Start 07/11/19 at 08:30; Stop 07/11/19 at 08:31; Status DC Midazolam HCl (Versed) 5 mg 1X ONCE IV ; Start 07/11/19 at 08:30; Stop 07/11/19 at 08:31; Status DC Potassium Chloride 15 meq/ Bicarbonate Dialysis Soln w/ out KCl 5,007.5 ml @ 1,000 mls/ hr Q5H1M IV Last administered on 07/12/19at 11:11; Start 07/11/19 at 12:00; Stop 07/12/19 at 11:15; Status DC Potassium Chloride 15 meq/ Bicarbonate Dialysis Soln w/ out KCl 5,007.5 ml @ 1,000 mls/ hr Q5H1M IV Last administered on 07/12/19at 11:12; Start 07/11/19 at 12:00; Stop 07/12/19 at 11:17; Status DC Potassium Chloride 15 meq/ Bicarbonate Dialysis Soln w/ out KCl 5,007.5 ml @ 1,000 mls/ hr Q5H1M IV Last administered on 07/12/19at 11:11; Start 07/11/19 at 12:00; Stop 07/12/19 at 11:19; Status DC Sodium Chloride 90 meq/Potassium Chloride 15 meq/ Potassium Phosphate 10 mmol/ Magnesium Sulfate 10 meq/Calcium Gluconate 20 meq/ Multivitamins 10 ml/Chromium/ Copper/Manganese/ Seleni/Zn 0.5 ml/ Total Parenteral Nutrition/Amino Acids/Dextrose/ Fat Emulsion Intravenous 1,400 ml @ 58.333 mls/ hr TPN CONT IV Last administered on 07/11/19at 21:42; Start 07/11/19 at 22:00; Stop 07/12/19 at 21:59; Status DC Heparin Sodium (Porcine) (Heparin Sodium) 5,000 unit Q8HRS SQ Last administered on 07/16/19at 05:55; Start 07/11/19 at 15:00; Stop 07/16/19 at 13:28; Status DC Meropenem 500 mg/ Sodium Chloride 50 ml @ 100 mls/hr Q6HRS IV Last administered on 07/13/19at 06:00; Start 07/12/19 at 09:00; Stop 07/13/19 at 07:29; Status DC Potassium Phosphate 20 mmol/ Sodium Chloride 106.6667 ml @ 51.667 m... 1X ONCE IV Last administered on 07/12/19at 11:22; Start 07/12/19 at 10:15; Stop 07/12/19 at 12:18; Status DC Acetaminophen (Tylenol Supp) 650 mg PRN Q6HRS PRN LA MILD PAIN / TEMP > 100.3'F Last administered on 11/02/19at 19:52; Start 07/12/19 at 10:30 Potassium Chloride/Water 100 ml @ 100 mls/hr Q1H IV Last administered on 07/12/19at 12:12; Start 07/12/19 at 11:00; Stop 07/12/19 at 12:59; Status DC Potassium Chloride 20 meq/ Bicarbonate Dialysis Soln w/ out KCl 5,010 ml @ 1,000 mls/hr Q5H1M IV Last administered on 07/13/19at 08:48; Start 07/12/19 at 12:00; Stop 07/13/19 at 13:03; Status DC Potassium Chloride 20 meq/ Bicarbonate Dialysis Soln w/ out KCl 5,010 ml @ 1,000 mls/hr Q5H1M IV Last administered on 07/17/19at 14:52; Start 07/12/19 at 11:30; Stop 07/17/19 at 19:59; Status DC Potassium Chloride 20 meq/ Bicarbonate Dialysis Soln w/ out KCl 5,010 ml @ 1,000 mls/hr Q5H1M IV Last administered on 07/17/19at 14:53; Start 07/12/19 at 11:30; Stop 07/17/19 at 19:59; Status DC Sodium Chloride 90 meq/Potassium Chloride 15 meq/ Potassium Phosphate 15 mmol/ Magnesium Sulfate 10 meq/Calcium Gluconate 15 meq/ Multivitamins 10 ml/Chromium/ Copper/Manganese/ Seleni/Zn 0.5 ml/ Total Parenteral Nutrition/Amino Acids/Dextrose/ Fat Emulsion Intravenous 1,400 ml @ 58.333 mls/ hr TPN CONT IV Last administered on 07/12/19at 22:17; Start 07/12/19 at 22:00; Stop 07/13/19 at 21:59; Status DC Cefepime HCl (Maxipime) 2 gm Q12HR IVP Last administered on 07/26/19at 20:56; Start 07/13/19 at 09:00; Stop 07/27/19 at 09:58; Status DC Daptomycin 500 mg/ Sodium Chloride 50 ml @ 100 mls/hr Q48H IV Last administered on 07/29/19at 09:57; Start 07/13/19 at 08:30; Stop 07/29/19 at 10:07; Status DC Lidocaine HCl (Buffered Lidocaine 1%) 3 ml 1X ONCE INJ Last administered on 07/13/19at 10:27; Start 07/13/19 at 10:30; Stop 07/13/19 at 10:31; Status DC Potassium Phosphate 20 mmol/ Sodium Chloride 106.6667 ml @ 51.667 m... 1X ONCE IV Last administered on 07/13/19at 12:51; Start 07/13/19 at 13:00; Stop 07/13/19 at 15:03; Status DC Sodium Chloride 90 meq/Potassium Chloride 15 meq/ Potassium Phosphate 18 mmol/ Magnesium Sulfate 8 meq/Calcium Gluconate 15 meq/ Multivitamins 10 ml/Chromium/ Copper/Manganese/ Seleni/Zn 0.5 ml/ Total Parenteral Nutrition/Amino Acids/Dextrose/ Fat Emulsion Intravenous 1,400 ml @ 58.333 mls/ hr TPN CONT IV Last administered on 07/13/19at 22:16; Start 07/13/19 at 22:00; Stop 07/14/19 at 21:59; Status DC Potassium Chloride 20 meq/ Bicarbonate Dialysis Soln w/ out KCl 5,010 ml @ 1,000 mls/hr Q5H1M IV Last administered on 07/17/19at 14:54; Start 07/13/19 at 16:00; Stop 07/17/19 at 19:59; Status DC Multi-Ingred Cream/Lotion/Oil/ Oint (Artificial Tears Eye Ointment) 1 ramu PRN Q1HR PRN OU DRY EYE, 2nd choice Last administered on 08/01/19at 08:19; Start 07/13/19 at 17:30; Stop 09/21/19 at 14:39; Status DC Sodium Chloride 90 meq/Potassium Chloride 15 meq/ Potassium Phosphate 18 mmol/ Magnesium Sulfate 8 meq/Calcium Gluconate 15 meq/ Multivitamins 10 ml/Chromium/ Copper/Manganese/ Seleni/Zn 0.5 ml/ Total Parenteral Nutrition/Amino Acids/Dextrose/ Fat Emulsion Intravenous 1,400 ml @ 58.333 mls/ hr TPN CONT IV Last administered on 07/14/19at 22:00; Start 07/14/19 at 22:00; Stop 07/15/19 at 21:59; Status DC Albumin Human 500 ml @ 125 mls/hr 1X ONCE IV ; Start 07/14/19 at 14:15; Stop 07/14/19 at 18:14; Status DC Sodium Chloride 90 meq/Potassium Chloride 15 meq/ Potassium Phosphate 18 mmol/ Magnesium Sulfate 8 meq/Calcium Gluconate 15 meq/ Multivitamins 10 ml/Chromium/ Copper/Manganese/ Seleni/Zn 0.5 ml/ Insulin Human Regular 10 unit/ Total Parenteral Nutrition/Amino Acids/Dextrose/ Fat Emulsion Intravenous 1,400 ml @ 58.333 mls/ hr TPN CONT IV Last administered on 07/15/19at 21:43; Start 07/15/19 at 22:00; Stop 07/16/19 at 21:59; Status DC Lidocaine HCl (Buffered Lidocaine 1%) 3 ml STK-MED ONCE .ROUTE ; Start 07/13/19 at 10:00; Stop 07/15/19 at 13:57; Status DC Midazolam HCl 100 mg/Sodium Chloride 100 ml @ 7 mls/hr CONT PRN IV SEE PROTOCOL Last administered on 07/27/19at 15:35; Start 07/16/19 at 16:00; Stop 09/21/19 at 14:38; Status DC Sodium Chloride 90 meq/Potassium Chloride 15 meq/ Potassium Phosphate 18 mmol/ Magnesium Sulfate 8 meq/Calcium Gluconate 15 meq/ Multivitamins 10 ml/Chromium/ Copper/Manganese/ Seleni/Zn 0.5 ml/ Insulin Human Regular 15 unit/ Total Parenteral Nutrition/Amino Acids/Dextrose/ Fat Emulsion Intravenous 1,400 ml @ 58.333 mls/ hr TPN CONT IV Last administered on 07/16/19at 20:34; Start 07/16/19 at 22:00; Stop 07/17/19 at 21:59; Status DC Info (Icu Electrolyte Protocol) 1 ea CONT PRN PRN MC PER PROTOCOL; Start 07/17/19 at 13:15 Sodium Chloride 90 meq/Potassium Chloride 15 meq/ Potassium Phosphate 18 mmol/ Magnesium Sulfate 8 meq/Calcium Gluconate 15 meq/ Multivitamins 10 ml/Chromium/ Copper/Manganese/ Seleni/Zn 0.5 ml/ Insulin Human Regular 15 unit/ Total Parenteral Nutrition/Amino Acids/Dextrose/ Fat Emulsion Intravenous 1,400 ml @ 58.333 mls/ hr TPN CONT IV Last administered on 07/17/19at 22:05; Start 07/17/19 at 22:00; Stop 07/18/19 at 21:59; Status DC Potassium Chloride 15 meq/ Bicarbonate Dialysis Soln w/ out KCl 5,007.5 ml @ 1,000 mls/ hr Q5H1M IV Last administered on 07/20/19at 18:14; Start 07/17/19 at 20:00; Stop 07/21/19 at 13:08; Status DC Potassium Chloride 15 meq/ Bicarbonate Dialysis Soln w/ out KCl 5,007.5 ml @ 1,000 mls/ hr Q5H1M IV Last administered on 07/20/19at 18:14; Start 07/17/19 at 20:00; Stop 07/21/19 at 13:08; Status DC Potassium Chloride 15 meq/ Bicarbonate Dialysis Soln w/ out KCl 5,007.5 ml @ 1,000 mls/ hr Q5H1M IV Last administered on 07/20/19at 18:14; Start 07/17/19 at 20:00; Stop 07/21/19 at 13:08; Status DC Iohexol (Omnipaque 240 Mg/ml) 30 ml 1X ONCE PO Last administered on 07/18/19at 11:30; Start 07/18/19 at 11:30; Stop 07/18/19 at 11:33; Status DC Info (CONTRAST GIVEN -- Rx MONITORING) 1 each PRN DAILY PRN MC SEE COMMENTS; Start 07/18/19 at 11:45; Stop 07/20/19 at 11:44; Status DC Sodium Chloride 90 meq/Potassium Chloride 15 meq/ Potassium Phosphate 18 mmol/ Magnesium Sulfate 8 meq/Calcium Gluconate 15 meq/ Multivitamins 10 ml/Chromium/ Copper/Manganese/ Seleni/Zn 0.5 ml/ Insulin Human Regular 15 unit/ Total Parenteral Nutrition/Amino Acids/Dextrose/ Fat Emulsion Intravenous 1,400 ml @ 58.333 mls/ hr TPN CONT IV Last administered on 07/18/19at 21:47; Start 07/18/19 at 22:00; Stop 07/19/19 at 21:59; Status DC Sodium Chloride 90 meq/Potassium Chloride 15 meq/ Potassium Phosphate 18 mmol/ Magnesium Sulfate 8 meq/Calcium Gluconate 15 meq/ Multivitamins 10 ml/Chromium/ Copper/Manganese/ Seleni/Zn 0.5 ml/ Insulin Human Regular 20 unit/ Total Parenteral Nutrition/Amino Acids/Dextrose/ Fat Emulsion Intravenous 1,400 ml @ 58.333 mls/ hr TPN CONT IV Last administered on 07/19/19at 21:36; Start 07/19/19 at 22:00; Stop 07/20/19 at 21:59; Status DC Alteplase, Recombinant (Cathflo For Central Catheter Clearance) 1 mg 1X ONCE INT CAT Last administered on 07/19/19at 20:03; Start 07/19/19 at 19:30; Stop 07/19/19 at 19:46; Status DC Alteplase, Recombinant (Cathflo For Central Catheter Clearance) 1 mg 1X ONCE INT CAT Last administered on 07/19/19at 22:05; Start 07/19/19 at 22:00; Stop 07/19/19 at 22:01; Status DC Sodium Chloride 90 meq/Potassium Chloride 15 meq/ Potassium Phosphate 18 mmol/ Magnesium Sulfate 8 meq/Calcium Gluconate 15 meq/ Multivitamins 10 ml/Chromium/ Copper/Manganese/ Seleni/Zn 0.5 ml/ Insulin Human Regular 20 unit/ Total Parenteral Nutrition/Amino Acids/Dextrose/ Fat Emulsion Intravenous 1,400 ml @ 58.333 mls/ hr TPN CONT IV Last administered on 07/20/19at 21:30; Start 07/20/19 at 22:00; Stop 07/21/19 at 21:59; Status DC Dexmedetomidine HCl 400 mcg/ Sodium Chloride 100 ml @ 0 mls/hr CONT PRN IV ANXIETY / AGITATION Last administered on 09/17/19at 12:57; Start 07/21/19 at 08:15; Stop 09/17/19 at 18:31; Status DC Sodium Chloride 500 ml @ 500 mls/hr 1X PRN PRN IV ELEVATED BP, SEE COMMENTS; Start 07/21/19 at 08:15 Atropine Sulfate (ATROPINE 0.5mg SYRINGE) 0.5 mg PRN Q5MIN PRN IV SEE COMMENTS; Start 07/21/19 at 08:15 Furosemide (Lasix) 20 mg 1X ONCE IVP Last administered on 07/21/19at 08:19; Start 07/21/19 at 08:15; Stop 07/21/19 at 08:16; Status DC Lidocaine HCl (Buffered Lidocaine 1%) 3 ml STK-MED ONCE .ROUTE ; Start 07/21/19 at 08:39; Stop 07/21/19 at 08:39; Status DC Lidocaine HCl (Buffered Lidocaine 1%) 6 ml 1X ONCE INJ Last administered on 07/21/19at 09:05; Start 07/21/19 at 09:00; Stop 07/21/19 at 09:06; Status DC Sodium Chloride 90 meq/Potassium Chloride 15 meq/ Potassium Phosphate 18 mmol/ Magnesium Sulfate 8 meq/Calcium Gluconate 15 meq/ Multivitamins 10 ml/Chromium/ Copper/Manganese/ Seleni/Zn 0.5 ml/ Insulin Human Regular 20 unit/ Total Parenteral Nutrition/Amino Acids/Dextrose/ Fat Emulsion Intravenous 1,400 ml @ 58.333 mls/ hr TPN CONT IV Last administered on 07/21/19at 22:45; Start 07/21/19 at 22:00; Stop 07/22/19 at 21:59; Status DC Sodium Chloride 1,000 ml @ 1,000 mls/hr Q1H PRN IV hypotension; Start 07/22/19 at 07:30; Stop 07/22/19 at 13:29; Status DC Albumin Human 200 ml @ 200 mls/hr 1X PRN PRN IV Hypotension Last administered on 07/22/19at 09:36; Start 07/22/19 at 07:30; Stop 07/22/19 at 13:29; Status DC Sodium Chloride (Normal Saline Flush) 10 ml 1X PRN PRN IV AP catheter pack; Start 07/22/19 at 07:30; Stop 07/22/19 at 21:29; Status DC Sodium Chloride (Normal Saline Flush) 10 ml 1X PRN PRN IV [employer]ICIAN catheter pack; Start 07/22/19 at 07:30; Stop 07/23/19 at 07:29; Status DC Sodium Chloride 1,000 ml @ 400 mls/hr Q2H30M PRN IV PATENCY; Start 07/22/19 at 07:30; Stop 07/22/19 at 19:29; Status DC Info (PHARMACY MONITORING -- do not chart) 1 each PRN DAILY PRN MC SEE COMMENTS; Start 07/22/19 at 07:30; Stop 07/22/19 at 13:02; Status DC Info (PHARMACY MONITORING -- do not chart) 1 each PRN DAILY PRN MC SEE COMMENTS; Start 07/22/19 at 07:30; Stop 07/24/19 at 12:45; Status DC Sodium Chloride 90 meq/Potassium Chloride 15 meq/ Potassium Phosphate 10 mmol/ Magnesium Sulfate 8 meq/Calcium Gluconate 15 meq/ Multivitamins 10 ml/Chromium/ Copper/Manganese/ Seleni/Zn 0.5 ml/ Insulin Human Regular 25 unit/ Total Parenteral Nutrition/Amino Acids/Dextrose/ Fat Emulsion Intravenous 1,400 ml @ 58.333 mls/ hr TPN CONT IV Last administered on 07/22/19at 22:19; Start 07/22/19 at 22:00; Stop 07/23/19 at 21:59; Status DC Heparin Sodium (Porcine) (Heparin Sodium) 5,000 unit Q12HR SQ Last administered on 08/14/19at 08:59; Start 07/22/19 at 21:00; Stop 08/14/19 at 10:05; Status DC Ondansetron HCl (Zofran) 4 mg PRN Q6HRS PRN IV NAUSEA/VOMITING; Start 07/25/19 at 07:00; Stop 07/26/19 at 06:59; Status DC Fentanyl Citrate (Fentanyl 2ml Vial) 25 mcg PRN Q5MIN PRN IV MILD PAIN 1-3; Start 07/25/19 at 07:00; Stop 07/26/19 at 06:59; Status DC Fentanyl Citrate (Fentanyl 2ml Vial) 50 mcg PRN Q5MIN PRN IV MODERATE TO SEVERE PAIN; Start 07/25/19 at 07:00; Stop 07/26/19 at 06:59; Status DC Ringer's Solution 1,000 ml @ 30 mls/hr Q24H IV ; Start 07/25/19 at 07:00; Stop 07/25/19 at 18:59; Status DC Lidocaine HCl (Xylocaine-Mpf 1% 2ml Vial) 2 ml PRN 1X PRN ID PRIOR TO IV START; Start 07/25/19 at 07:00; Stop 07/26/19 at 06:59; Status DC Prochlorperazine Edisylate (Compazine) 5 mg PACU PRN PRN IV NAUSEA, MRX1; Start 07/25/19 at 07:00; Stop 07/26/19 at 06:59; Status DC Sodium Chloride 1,000 ml @ 1,000 mls/hr Q1H PRN IV hypotension; Start 07/23/19 at 09:10; Stop 07/23/19 at 15:09; Status DC Albumin Human 200 ml @ 200 mls/hr 1X PRN PRN IV Hypotension Last administered on 07/23/19at 10:10; Start 07/23/19 at 09:15; Stop 07/23/19 at 15:14; Status DC Sodium Chloride 1,000 ml @ 400 mls/hr Q2H30M PRN IV PATENCY; Start 07/23/19 at 09:10; Stop 07/23/19 at 21:09; Status DC Info (PHARMACY MONITORING -- do not chart) 1 each PRN DAILY PRN MC SEE COMMENTS; Start 07/23/19 at 09:15; Stop 07/24/19 at 12:45; Status DC Info (PHARMACY MONITORING -- do not chart) 1 each PRN DAILY PRN MC SEE COMMENTS; Start 07/23/19 at 09:15; Stop 07/24/19 at 12:45; Status DC Sodium Chloride 90 meq/Potassium Chloride 15 meq/ Potassium Phosphate 10 mmol/ Magnesium Sulfate 8 meq/Calcium Gluconate 15 meq/ Multivitamins 10 ml/Chromium/ Copper/Manganese/ Seleni/Zn 0.5 ml/ Insulin Human Regular 25 unit/ Total Parenteral Nutrition/Amino Acids/Dextrose/ Fat Emulsion Intravenous 1,400 ml @ 58.333 mls/ hr TPN CONT IV Last administered on 07/23/19at 22:10; Start 07/23/19 at 22:00; Stop 07/24/19 at 21:59; Status DC Magnesium Sulfate 50 ml @ 25 mls/hr PRN DAILY PRN IV for Mag < 1.7 on am labs Last administered on 10/06/19at 10:57; Start 07/24/19 at 09:15 Sodium Chloride 90 meq/Potassium Chloride 15 meq/ Potassium Phosphate 10 mmol/ Magnesium Sulfate 8 meq/Calcium Gluconate 15 meq/ Multivitamins 10 ml/Chromium/ Copper/Manganese/ Seleni/Zn 0.5 ml/ Insulin Human Regular 25 unit/ Total Parenteral Nutrition/Amino Acids/Dextrose/ Fat Emulsion Intravenous 1,400 ml @ 58.333 mls/ hr TPN CONT IV Last administered on 07/24/19at 21:20; Start 07/24/19 at 22:00; Stop 07/25/19 at 21:59; Status DC Sodium Chloride 1,000 ml @ 1,000 mls/hr Q1H PRN IV hypotension; Start 07/24/19 at 12:23; Stop 07/24/19 at 18:22; Status DC Albumin Human 200 ml @ 200 mls/hr 1X ONCE IV Last administered on 07/24/19at 13:34; Start 07/24/19 at 12:30; Stop 07/24/19 at 13:29; Status DC Diphenhydramine HCl (Benadryl) 25 mg 1X PRN PRN IV ITCHING; Start 07/24/19 at 12:30; Stop 07/25/19 at 12:29; Status DC Diphenhydramine HCl (Benadryl) 25 mg 1X PRN PRN IV ITCHING; Start 07/24/19 at 12:30; Stop 07/25/19 at 12:29; Status DC Info (PHARMACY MONITORING -- do not chart) 1 each PRN DAILY PRN MC SEE COMMENTS; Start 07/24/19 at 12:30; Status Cancel Bupivacaine HCl/ Epinephrine Bitart (Sensorcain-Epi 0.5%-1:[id number] Mpf) 30 ml STK-MED ONCE .ROUTE Last administered on 07/25/19at 11:44; Start 07/25/19 at 11:00; Stop 07/25/19 at 11:01; Status DC Cellulose (Surgicel Fibrillar 1x2) 1 each STK-MED ONCE .ROUTE ; Start 07/25/19 at 11:00; Stop 07/25/19 at 11:01; Status DC Sodium Chloride 90 meq/Potassium Chloride 15 meq/ Potassium Phosphate 10 mmol/ Magnesium Sulfate 12 meq/Calcium Gluconate 15 meq/ Multivitamins 10 ml/Chromium/ Copper/Manganese/ Seleni/Zn 0.5 ml/ Insulin Human Regular 25 unit/ Total Parenteral Nutrition/Amino Acids/Dextrose/ Fat Emulsion Intravenous 1,400 ml @ 58.333 mls/ hr TPN CONT IV Last administered on 07/25/19at 22:24; Start 07/25/19 at 22:00; Stop 07/26/19 at 21:59; Status DC Propofol 20 ml @ As Directed STK-MED ONCE IV ; Start 07/25/19 at 11:07; Stop 07/24 at 11:07; Status DC Cellulose (Surgicel Hemostat 4x8) 1 each STK-MED ONCE .ROUTE Last administered on 07/25/19at 11:44; Start 07/25/19 at 11:55; Stop 07/25/19 at 11:56; Status DC Sevoflurane (Ultane) 60 ml STK-MED ONCE IH ; Start 07/25/19 at 12:46; Stop 07/25/19 at 12:46; Status DC Sodium Chloride 1,000 ml @ 1,000 mls/hr Q1H PRN IV hypotension; Start 07/25/19 at 13:51; Stop 07/25/19 at 19:50; Status DC Albumin Human 200 ml @ 200 mls/hr 1X PRN PRN IV Hypotension Last administered on 07/25/19at 14:51; Start 07/25/19 at 14:00; Stop 07/25/19 at 19:59; Status DC Diphenhydramine HCl (Benadryl) 25 mg 1X PRN PRN IV ITCHING; Start 07/25/19 at 14:00; Stop 07/26/19 at 13:59; Status DC Diphenhydramine HCl (Benadryl) 25 mg 1X PRN PRN IV ITCHING; Start 07/25/19 at 14:00; Stop 07/26/19 at 13:59; Status DC Sodium Chloride 1,000 ml @ 400 mls/hr Q2H30M PRN IV PATENCY; Start 07/25/19 at 13:51; Stop 07/26/19 at 01:50; Status DC Info (PHARMACY MONITORING -- do not chart) 1 each PRN DAILY PRN MC SEE COMMENTS; Start 07/25/19 at 14:00; Stop 07/28/19 at 08:16; Status DC Heparin Sodium (Porcine) (Hep Lock Adult) 500 unit STK-MED ONCE IVP ; Start 07/26/19 at 09:29; Stop 07/26/19 at 09:30; Status DC Sodium Chloride 1,000 ml @ 1,000 mls/hr Q1H PRN IV hypotension; Start 07/26/19 at 10:43; Stop 07/26/19 at 16:42; Status DC Sodium Chloride 1,000 ml @ 400 mls/hr Q2H30M PRN IV PATENCY; Start 07/26/19 at 10:43; Stop 07/26/19 at 22:42; Status DC Info (PHARMACY MONITORING -- do not chart) 1 each PRN DAILY PRN MC SEE COMMENTS; Start 07/26/19 at 10:45; Status UNV Info (PHARMACY MONITORING -- do not chart) 1 each PRN DAILY PRN MC SEE COMMENTS; Start 07/26/19 at 10:45; Status UNV Sodium Chloride 90 meq/Potassium Chloride 15 meq/ Magnesium Sulfate 12 meq/Calcium Gluconate 15 meq/ Multivitamins 10 ml/Chromium/ Copper/Manganese/ Seleni/Zn 0.5 ml/ Insulin Human Regular 25 unit/ Total Parenteral Nutrition/Amino Acids/Dextrose/ Fat Emulsion Intravenous 1,400 ml @ 58.333 mls/ hr TPN CONT IV Last administered on 07/26/19at 22:13; Start 07/26/19 at 22:00; Stop 07/27/19 at 21:59; Status DC Sodium Chloride 1,000 ml @ 1,000 mls/hr Q1H PRN IV hypotension; Start 07/27/19 at 07:50; Stop 07/27/19 at 13:49; Status DC Albumin Human 200 ml @ 200 mls/hr 1X ONCE IV ; Start 07/27/19 at 08:00; Stop 07/27/19 at 08:53; Status DC Diphenhydramine HCl (Benadryl) 25 mg 1X PRN PRN IV ITCHING; Start 07/27/19 at 08:00; Stop 07/28/19 at 07:59; Status DC Diphenhydramine HCl (Benadryl) 25 mg 1X PRN PRN IV ITCHING; Start 07/27/19 at 08:00; Stop 07/28/19 at 07:59; Status DC Info (PHARMACY MONITORING -- do not chart) 1 each PRN DAILY PRN MC SEE COMMENTS; Start 07/27/19 at 08:00; Stop 07/28/19 at 08:16; Status DC Albumin Human 50 ml @ 50 mls/hr 1X ONCE IV ; Start 07/27/19 at 08:53; Stop 07/27/19 at 08:56; Status DC Albumin Human 200 ml @ 50 mls/hr PRN 1X PRN IV HYPOTENSION Last administered on 08/02/19at 11:54; Start 07/27/19 at 09:00; Stop 09/08/19 at 11:14; Status DC Meropenem 500 mg/ Sodium Chloride 50 ml @ 100 mls/hr Q12H IV Last administered on 08/16/19at 10:45; Start 07/27/19 at 10:00; Stop 08/16/19 at 12:37; Status DC Sodium Chloride 90 meq/Magnesium Sulfate 12 meq/ Calcium Gluconate 15 meq/ Multivitamins 10 ml/Chromium/ Copper/Manganese/ Seleni/Zn 0.5 ml/ Insulin Human Regular 25 unit/ Total Parenteral Nutrition/Amino Acids/Dextrose/ Fat Emulsion Intravenous 1,400 ml @ 58.333 mls/ hr TPN CONT IV Last administered on 07/27/19at 21:41; Start 07/27/19 at 22:00; Stop 07/28/19 at 21:59; Status DC Sodium Chloride 1,000 ml @ 1,000 mls/hr Q1H PRN IV hypotension; Start 07/28/19 at 07:58; Stop 07/28/19 at 13:57; Status DC Albumin Human 200 ml @ 200 mls/hr 1X PRN PRN IV Hypotension Last administered on 07/28/19at 09:30; Start 07/28/19 at 08:00; Stop 07/28/19 at 13:59; Status DC Sodium Chloride 1,000 ml @ 400 mls/hr Q2H30M PRN IV PATENCY; Start 07/28/19 at 07:58; Stop 07/28/19 at 19:57; Status DC Info (PHARMACY MONITORING -- do not chart) 1 each PRN DAILY PRN MC SEE PIPE TS; Start 07/28/19 at 08:00; Status Cancel Info (PHARMACY MONITORING -- do not chart) 1 each PRN DAILY PRN MC SEE COMMENTS; Start 07/28/19 at 08:15; Status UNV Sodium Chloride 90 meq/Potassium Phosphate 5 mmol/ Magnesium Sulfate 12 meq/Calcium Gluconate 15 meq/ Multivitamins 10 ml/Chromium/ Copper/Manganese/ Seleni/Zn 0.5 ml/ Insulin Human Regular 30 unit/ Total Parenteral Nutriti on/Amino Acids/Dextrose/ Fat Emulsion Intravenous 1,400 ml @ 58.333 mls/ hr TPN CONT IV Last administered on 07/28/19at 22:08; Start 07/28/19 at 22:00; Stop 07/29/19 at 21:59; Status DC Linezolid/Dextrose 300 ml @ 300 mls/hr Q12HR IV Last administered on 08/08/19at 20:40; Start 07/29/19 at 11:00; Stop 08/09/19 at 08:10; Status DC Sodium Chloride 90 meq/Potassium Phosphate 15 mmol/ Magnesium Sulfate 12 meq/Calcium Gluconate 15 meq/ Multivitamins 10 ml/Chromium/ Copper/Manganese/ Seleni/Zn 0.5 ml/ Insulin Human Regular 30 unit/ Total Parenteral Nutrition/Amino Acids/Dextrose/ Fat Emulsion Intravenous 1,400 ml @ 58.333 mls/ hr TPN CONT IV Last administered on 07/29/19at 21:49; Start 07/29/19 at 22:00; Stop 07/30/19 at 21:59; Status DC Sodium Chloride 90 meq/Potassium Phosphate 15 mmol/ Magnesium Sulfate 12 meq/Calcium Gluconate 15 meq/ Multivitamins 10 ml/Chromium/ Copper/Manganese/ Seleni/Zn 0.5 ml/ Insulin Human Regular 40 unit/ Total Parenteral Nutrition/Amino Acids/Dextrose/ Fat Emulsion Intravenous 1,400 ml @ 58.333 mls/ hr TPN CONT IV Last administered on 07/30/19at 21:21; Start 07/30/19 at 22:00; Stop 07/31/19 at 21:59; Status DC Sodium Chloride 1,000 ml @ 1,000 mls/hr Q1H PRN IV hypotension; Start 07/30/19 at 13:26; Stop 07/30/19 at 19:25; Status DC Albumin Human 200 ml @ 200 mls/hr 1X PRN PRN IV Hypotension Last administered on 07/30/19at 15:00; Start 07/30/19 at 13:30; Stop 07/30/19 at 19:29; Status DC Sodium Chloride (Normal Saline Flush) 10 ml 1X PRN PRN IV AP catheter pack; Start 07/30/19 at 13:30; Stop 07/31/19 at 13:29; Status DC Sodium Chloride (Normal Saline Flush) 10 ml 1X PRN PRN IV [employer] catheter pack; Start 07/30/19 at 13:30; Stop 07/31/19 at 13:29; Status DC Sodium Chloride 1,000 ml @ 400 mls/hr Q2H30M PRN IV PATENCY; Start 07/30/19 at 13:26; Stop 07/31/19 at 01:25; Status DC Info (PHARMACY MONITORING -- do not chart) 1 each PRN DAILY PRN MC SEE PIPE TS; Start 07/30/19 at 13:30; Stop 07/30/19 at 13:33; Status DC Info (PHARMACY MONITORING -- do not chart) 1 each PRN DAILY PRN MC SEE COMMENTS; Start 07/30/19 at 13:30; Stop 07/30/19 at 13:34; Status DC Sodium Chloride 90 meq/Potassium Phosphate 19 mmol/ Magnesium Sulfate 12 meq/Calcium Gluconate 15 meq/ Multivitamins 10 ml/Chromium/ Copper/Manganese/ Seleni/Zn 0.5 ml/ Insulin Human Regular 40 unit/ Total Parenteral Nutrition/Amino Acids/Dextrose/ Fat Emulsion Intravenous 1,400 ml @ 58.333 mls/ hr TPN CONT IV Last administered on 07/31/19at 21:54; Start 07/31/19 at 22:00; Stop 08/01/19 at 21:59; Status DC Sodium Chloride 1,000 ml @ 1,000 mls/hr Q1H PRN IV hypotension; Start 08/01/19 at 09:35; Stop 08/01/19 at 15:34; Status DC Albumin Human 200 ml @ 200 mls/hr 1X PRN PRN IV Hypotension; Start 08/01/19 at 09:45; Stop 08/01/19 at 15:44; Status DC Diphenhydramine HCl (Benadryl) 25 mg 1X PRN PRN IV ITCHING; Start 08/01/19 at 09:45; Stop 08/02/19 at 09:44; Status DC Diphenhydramine HCl (Benadryl) 25 mg 1X PRN PRN IV ITCHING; Start 08/01/19 at 09:45; Stop 08/02/19 at 09:44; Status DC Sodium Chloride 1,000 ml @ 400 mls/hr Q2H30M PRN IV PATENCY; Start 08/01/19 at 09:35; Stop 08/01/19 at 21:34; Status DC Info (PHARMACY MONITORING -- do not chart) 1 each PRN DAILY PRN MC SEE COMMENTS; Start 08/01/19 at 09:45; Status Cancel Sodium Chloride 100 meq/Potassium Phosphate 19 mmol/ Magnesium Sulfate 12 meq/Calcium Gluconate 15 meq/ Multivitamins 10 ml/Chromium/ Copper/Manganese/ Seleni/Zn 0.5 ml/ Insulin Human Regular 40 unit/ Potassium Chloride 20 meq/ Total Parenteral Nutrition/Amino Acids/Dextrose/ Fat Emulsion Intravenous 1,400 ml @ 58.333 mls/ hr TPN CONT IV Last administered on 08/01/19at 22:02; Start 08/01/19 at 22:00; Stop 08/02/19 at 21:59; Status DC Furosemide (Lasix) 40 mg 1X ONCE IVP Last administered on 08/01/19at 14:39; Start 08/01/19 at 14:30; Stop 08/01/19 at 14:31; Status DC Metronidazole 100 ml @ 100 mls/hr Q8HRS IV Last administered on 08/09/19at 06:04; Start 08/02/19 at 10:00; Stop 08/09/19 at 08:10; Status DC Sodium Chloride 1,000 ml @ 1,000 mls/hr Q1H PRN IV hypotension; Start 08/02/19 at 08:00; Stop 08/02/19 at 13:59; Status DC Albumin Human 200 ml @ 200 mls/hr 1X PRN PRN IV Hypotension; Start 08/02/19 at 08:00; Stop 08/02/19 at 13:59; Status DC Sodium Chloride 1,000 ml @ 400 mls/hr Q2H30M PRN IV PATENCY; Start 08/02/19 at 08:00; Stop 08/02/19 at 19:59; Status DC Info (PHARMACY MONITORING -- do not chart) 1 each PRN DAILY PRN MC SEE COMMENTS; Start 08/02/19 at 11:30; Status UNV Info (PHARMACY MONITORING -- do not chart) 1 each PRN DAILY PRN MC SEE COMMENTS; Start 08/02/19 at 11:30; Stop 08/04/19 at 12:13; Status DC Sodium Chloride 100 meq/Potassium Phosphate 19 mmol/ Magnesium Sulfate 12 meq/Calcium Gluconate 15 meq/ Multivitamins 10 ml/Chromium/ Copper/Manganese/ Seleni/Zn 0.5 ml/ Insulin Human Regular 40 unit/ Potassium Chloride 20 meq/ Total Parenteral Nutrition/Amino Acids/Dextrose/ Fat Emulsion Intravenous 1,400 ml @ 58.333 mls/ hr TPN CONT IV Last administered on 08/02/19at 21:52; Start 08/02/19 at 22:00; Stop 08/03/19 at 21:59; Status DC Sodium Chloride (Normal Saline Flush) 10 ml QSHIFT PRN IV AFTER MEDS AND BLOOD DRAWS; Start 08/02/19 at 15:00; Stop 08/30/19 at 11:27; Status DC Sodium Chloride (Normal Saline Flush) 10 ml PRN Q5MIN PRN IV AFTER MEDS AND BLOOD DRAWS; Start 08/02/19 at 15:00 Sodium Chloride (Normal Saline Flush) 20 ml PRN Q5MIN PRN IV AFTER MEDS AND BLOOD DRAWS; Start 08/02/19 at 15:00 Sodium Chloride 100 meq/Potassium Phosphate 19 mmol/ Magnesium Sulfate 12 meq/Calcium Gluconate 15 meq/ Multivitamins 10 ml/Chromium/ Copper/Manganese/ Seleni/Zn 0.5 ml/ Insulin Human Regular 40 unit/ Potassium Chloride 20 meq/ Total Parenteral Nutrition/Amino Acids/Dextrose/ Fat Emulsion Intravenous 1,400 ml @ 58.333 mls/ hr TPN CONT IV Last administered on 08/03/19at 21:20; Start 08/03/19 at 22:00; Stop 08/04/19 at 21:59; Status DC Lidocaine HCl (Buffered Lidocaine 1%) 3 ml STK-MED ONCE .ROUTE ; Start 08/03/19 at 13:16; Stop 08/03/19 at 13:16; Status DC Lidocaine HCl (Buffered Lidocaine 1%) 6 ml 1X ONCE INJ Last administered on 08/03/19at 13:45; Start 08/03/19 at 13:30; Stop 08/03/19 at 13:31; Status DC Albumin Human 100 ml @ 100 mls/hr 1X ONCE IV Last administered on 08/03/19at 15:41; Start 08/03/19 at 15:00; Stop 08/03/19 at 15:59; Status DC Albumin Human 50 ml @ 50 mls/hr 1X ONCE IV Last administered on 08/03/19at 15:00; Start 08/03/19 at 15:00; Stop 08/03/19 at 15:59; Status DC Info (PHARMACY MONITORING -- do not chart) 1 each PRN DAILY PRN MC SEE LUIS ALBERTO NTS; Start 08/04/19 at 11:30; Status Cancel Info (PHARMACY MONITORING -- do not chart) 1 each PRN DAILY PRN MC SEE COMMENTS; Start 08/04/19 at 11:30; Status UNV Sodium Chloride 100 meq/Potassium Phosphate 10 mmol/ Magnesium Sulfate 12 meq/Calcium Gluconate 15 meq/ Multivitamins 10 ml/Chromium/ Copper/Manganese/ Seleni/Zn 0.5 ml/ Insulin Human Regular 35 unit/ Potassium Chloride 20 meq/ Total Parenteral Nutrition/Amino Acids/Dextrose/ Fat Emulsion Intravenous 1,400 ml @ 58.333 mls/ hr TPN CONT IV Last administered on 08/04/19at 22:10; Start 08/04/19 at 22:00; Stop 08/05/19 at 21:59; Status DC Sodium Chloride 100 meq/Potassium Phosphate 5 mmol/ Magnesium Sulfate 12 meq/Calcium Gluconate 15 meq/ Multivitamins 10 ml/Chromium/ Copper/Manganese/ Seleni/Zn 0.5 ml/ Insulin Human Regular 35 unit/ Potassium Chloride 20 meq/ Total Parenteral Nutrition/Amino Acids/Dextrose/ Fat Emulsion Intravenous 1,400 ml @ 58.333 mls/ hr TPN CONT IV Last administered on 08/05/19at 22:59; Start 08/05/19 at 22:00; Stop 08/06/19 at 21:59; Status DC Sodium Chloride 1,000 ml @ 1,000 mls/hr Q1H PRN IV hypotension; Start 08/06/19 at 08:27; Stop 08/06/19 at 14:26; Status DC Albumin Human 200 ml @ 200 mls/hr 1X PRN PRN IV Hypotension Last administered on 08/06/19at 09:18; Start 08/06/19 at 08:30; Stop 08/06/19 at 14:29; Status DC Sodium Chloride 1,000 ml @ 400 mls/hr Q2H30M PRN IV PATENCY; Start 08/06/19 at 08:27; Stop 08/06/19 at 20:26; Status DC Info (PHARMACY MONITORING -- do not chart) 1 each PRN DAILY PRN MC SEE COMMENTS; Start 08/06/19 at 08:30; Status Cancel Info (PHARMACY MONITORING -- do not chart) 1 each PRN DAILY PRN MC SEE COMMENTS; Start 08/06/19 at 08:30; Stop 08/14/19 at 13:10; Status DC Sodium Chloride 100 meq/Potassium Chloride 40 meq/ Magnesium Sulfate 15 meq/ Calcium Gluconate 15 meq/ Multivitamins 10 ml/Chromium/ Copper/Manganese/ Seleni/Zn 0.5 ml/ Insulin Human Regular 35 unit/ Total Parenteral Nutrition/Amino Acids/Dextrose/ Fat Emulsion Intravenous 1,400 ml @ 58.333 mls/ hr TPN CONT IV Last administered on 08/06/19at 22:00; Start 08/06/19 at 22:00; Stop 08/07/19 at 21:59; Status DC Potassium Chloride/Water 100 ml @ 100 mls/hr 1X ONCE IV Last administered on 08/06/19at 17:28; Start 08/06/19 at 14:45; Stop 08/06/19 at 15:44; Status DC Sodium Chloride 100 meq/Potassium Chloride 40 meq/ Magnesium Sulfate 15 meq/Calcium Gluconate 15 meq/ Multivitamins 10 ml/Chromium/ Copper/Manganese/ Seleni/Zn 0.5 ml/ Insulin Human Regular 35 unit/ Total Parenteral Nutrition/Amino Acids/Dextrose/ Fat Emulsion Intravenous 1,400 ml @ 58.333 mls/ hr TPN CONT IV Last administered on 08/07/19at 22:46; Start 08/07/19 at 22:00; Stop 08/08/19 at 21:59; Status DC Sodium Chloride 100 meq/Potassium Chloride 40 meq/ Magnesium Sulfate 20 meq/Calcium Gluconate 15 meq/ Multivitamins 10 ml/Chromium/ Copper/Manganese/ Seleni/Zn 0.5 ml/ Insulin Human Regular 35 unit/ Total Parenteral Nutrition/Amino Acids/Dextrose/ Fat Emulsion Intravenous 1,400 ml @ 58.333 mls/ hr TPN CONT IV Last administered on 08/08/19at 22:31; Start 08/08/19 at 22:00; Stop 08/09/19 at 21:59; Status DC Fentanyl Citrate (Fentanyl 2ml Vial) 50 mcg PRN Q2HR PRN IVP PAIN Last administered on 08/15/19at 13:32; Start 08/08/19 at 21:00; Stop 08/16/19 at 12:53; Status DC Fentanyl Citrate (Fentanyl 2ml Vial) 25 mcg PRN Q2HR PRN IVP PAIN; Start 08/08/19 at 21:00; Stop 08/16/19 at 12:54; Status DC Enoxaparin Sodium (Lovenox 100mg Syringe) 100 mg Q12HR SQ ; Start 08/09/19 at 21:00; Status UNV Amino Acids/ Glycerin/ Electrolytes 1,000 ml @ 75 mls/hr [id number] IV ; Start 08/08/19 at 21:15; Status UNV Sodium Chloride 1,000 ml @ 1,000 mls/hr Q1H PRN IV hypotension; Start 08/09/19 at 07:56; Stop 08/09/19 at 13:55; Status DC Albumin Human 200 ml @ 200 mls/hr 1X PRN PRN IV Hypotension Last administered on 08/09/19at 08:40; Start 08/09/19 at 08:00; Stop 08/09/19 at 13:59; Status DC Sodium Chloride 1,000 ml @ 400 mls/hr Q2H30M PRN IV PATENCY; Start 08/09/19 at 07:56; Stop 08/09/19 at 19:55; Status DC Info (PHARMACY MONITORING -- do not chart) 1 each PRN DAILY PRN MC SEE COMMENTS; Start 08/09/19 at 08:00; Status UNV Info (PHARMACY MONITORING -- do not chart) 1 each PRN DAILY PRN MC SEE COMMENTS; Start 08/09/19 at 08:00; Status UNV Daptomycin 430 mg/ Sodium Chloride 50 ml @ 100 mls/hr Q24H IV Last administered on 08/09/19at 12:35; Start 08/09/19 at 09:00; Stop 08/09/19 at 12:49; Status DC Sodium Chloride 100 meq/Potassium Chloride 40 meq/ Magnesium Sulfate 20 meq/Calcium Gluconate 15 meq/ Multivitamins 10 ml/Chromium/ Copper/Manganese/ Seleni/Zn 0.5 ml/ Insulin Human Regular 35 unit/ Total Parenteral Nutrition/Amino Acids/Dextrose/ Fat Emulsion Intravenous 1,400 ml @ 58.333 mls/ hr TPN CONT IV Last administered on 08/09/19at 21:26; Start 08/09/19 at 22:00; Stop 08/10/19 at 21:59; Status DC Daptomycin 430 mg/ Sodium Chloride 50 ml @ 100 mls/hr Q48H IV ; Start 08/11/19 at 09:00; Stop 08/10/19 at 11:55; Status DC Sodium Chloride 100 meq/Potassium Chloride 40 meq/ Magnesium Sulfate 20 meq/Calcium Gluconate 15 meq/ Multivitamins 10 ml/Chromium/ Copper/Manganese/ Seleni/Zn 0.5 ml/ Insulin Human Regular 35 unit/ Total Parenteral Nutrition/Amino Acids/Dextrose/ Fat Emulsion Intravenous 1,400 ml @ 58.333 mls/ hr TPN CONT IV Last administered on 08/10/19at 22:27; Start 08/10/19 at 22:00; Stop 08/11/19 at 21:59; Status DC Daptomycin 430 mg/ Sodium Chloride 50 ml @ 100 mls/hr Q24H IV Last administered on 08/12/19at 15:07; Start 08/10/19 at 13:00; Stop 08/13/19 at 13:15; Status DC Sodium Chloride 100 meq/Potassium Chloride 40 meq/ Magnesium Sulfate 20 meq/Calcium Gluconate 10 meq/ Multivitamins 10 ml/Chromium/ Copper/Manganese/ Seleni/Zn 0.5 ml/ Insulin Human Regular 35 unit/ Total Parenteral Nutrition/Amino Acids/Dextrose/ Fat Emulsion Intravenous 1,400 ml @ 58.333 mls/ hr TPN CONT IV Last administered on 08/12/19at 00:06; Start 08/11/19 at 22:00; Stop 08/12/19 at 21:59; Status DC Alteplase, Recombinant (Cathflo For Central Catheter Clearance) 1 mg 1X ONCE I NT CAT Last administered on 08/12/19at 11:44; Start 08/12/19 at 10:45; Stop 08/12/19 at 10:46; Status DC Ondansetron HCl (Zofran) 4 mg PRN Q6HRS PRN IV NAUSEA/VOMITING; Start 08/15/19 at 07:00; Stop 08/16/19 at 06:59; Status DC Fentanyl Citrate (Fentanyl 2ml Vial) 25 mcg PRN Q5MIN PRN IV MILD PAIN 1-3; Start 08/15/19 at 07:00; Stop 08/16/19 at 06:59; Status DC Fentanyl Citrate (Fentanyl 2ml Vial) 50 mcg PRN Q5MIN PRN IV MODERATE TO SEVERE PAIN Last administered on 08/15/19at 10:17; Start 08/15/19 at 07:00; Stop 08/16/19 at 06:59; Status DC Ringer's Solution 1,000 ml @ 30 mls/hr Q24H IV ; Start 08/15/19 at 07:00; Stop 08/15/19 at 18:59; Status DC Lidocaine HCl (Xylocaine-Mpf 1% 2ml Vial) 2 ml PRN 1X PRN ID PRIOR TO IV START; Start 08/15/19 at 07:00; Stop 08/16/19 at 06:59; Status DC Prochlorperazine Edisylate (Compazine) 5 mg PACU PRN PRN IV NAUSEA, MRX1; Start 08/15/19 at 07:00; Stop 08/16/19 at 06:59; Status DC Sodium Acetate 50 meq/Potassium Acetate 55 meq/ Magnesium Sulfate 20 meq/Calcium Gluconate 10 meq/ Multivitamins 10 ml/Chromium/ Copper/Manganese/ Seleni/Zn 0.5 ml/ Insulin Human Regular 35 unit/ Total Parenteral Nutrition/Amino Acids/Dextrose/ Fat Emulsion Intravenous 1,400 ml @ 58.333 mls/ hr TPN CONT IV ; Start 08/12/19 at 22:00; Stop 08/12/19 at 14:15; Status DC Sodium Acetate 50 meq/Potassium Acetate 55 meq/ Magnesium Sulfate 20 meq/Calcium Gluconate 10 meq/ Multivitamins 10 ml/Chromium/ Copper/Manganese/ Seleni/Zn 0.5 ml/ Insulin Human Regular 35 unit/ Total Parenteral Nutrition/Amino Acids/Dextrose/ Fat Emulsion Intravenous 1,800 ml @ 75 mls/hr TPN CONT IV Last administered on 08/12/19at 22:38; Start 08/12/19 at 22:00; Stop 08/13/19 at 21:59; Status DC Sodium Chloride 1,000 ml @ 1,000 mls/hr Q1H PRN IV hypotension; Start 08/12/19 at 15:31; Stop 08/12/19 at 21:30; Status DC Diphenhydramine HCl (Benadryl) 25 mg 1X PRN PRN IV ITCHING; Start 08/12/19 at 15:45; Stop 08/13/19 at 15:44; Status DC Diphenhydramine HCl (Benadryl) 25 mg 1X PRN PRN IV ITCHING; Start 08/12/19 at 15:45; Stop 08/13/19 at 15:44; Status DC Sodium Chloride 1,000 ml @ 400 mls/hr Q2H30M PRN IV PATENCY; Start 08/12/19 at 15:31; Stop 08/13/19 at 03:30; Status DC Info (PHARMACY MONITORING -- do not chart) 1 each PRN DAILY PRN MC SEE COMMENTS; Start 08/12/19 at 15:45; Stop 09/13/19 at 14:14; Status DC Sodium Acetate 50 meq/Potassium Acetate 55 meq/ Magnesium Sulfate 20 meq/Calcium Gluconate 10 meq/ Multivitamins 10 ml/Chromium/ Copper/Manganese/ Seleni/Zn 0.5 ml/ Insulin Human Regular 35 unit/ Total Parenteral Nutrition/Amino Acids/Dextrose/ Fat Emulsion Intravenous 1,800 ml @ 75 mls/hr TPN CONT IV Last administered on 08/13/19at 22:03; Start 08/13/19 at 22:00; Stop 08/14/19 at 21:59; Status DC Daptomycin 430 mg/ Sodium Chloride 50 ml @ 100 mls/hr Q24H IV Last administered on 08/18/19at 13:00; Start 08/13/19 at 13:00; Stop 08/18/19 at 20:58; Status DC Heparin Sodium (Porcine) 1000 unit/Sodium Chloride 1,001 ml @ 1,001 mls/hr 1X ONCE IRR ; Start 08/15/19 at 06:00; Stop 08/15/19 at 06:59; Status DC Potassium Acetate 55 meq/Magnesium Sulfate 20 meq/ Calcium Gluconate 10 meq/ Multivitamins 10 ml/Chromium/ Copper/Manganese/ Seleni/Zn 0.5 ml/ Insulin Human Regular 35 unit/ Total Parenteral Nutrition/Amino Acids/Dextrose/ Fat Emulsion Intravenous 1,920 ml @ 80 mls/hr TPN CONT IV Last administered on 08/14/19at 22:10; Start 08/14/19 at 22:00; Stop 08/15/19 at 21:59; Status DC Dexamethasone Sodium Phosphate (Decadron) 4 mg STK-MED ONCE .ROUTE ; Start 08/15/19 at 10:56; Stop 08/15/19 at 10:57; Status DC Ondansetron HCl (Zofran) 4 mg STK-MED ONCE .ROUTE ; Start 08/15/19 at 10:56; Stop 08/15/19 at 10:57; Status DC Rocuronium Ada (Zemuron) 50 mg STK-MED ONCE .ROUTE ; Start 08/15/19 at 10:56; Stop 08/15/19 at 10:57; Status DC Fentanyl Citrate (Fentanyl 2ml Vial) 100 mcg STK-MED ONCE .ROUTE ; Start 08/15/19 at 10:56; Stop 08/15/19 at 10:57; Status DC Bupivacaine HCl/ Epinephrine Bitart (Sensorcain-Epi 0.5%-1:102577 Mpf) 30 ml STK-MED ONCE .ROUTE Last administered on 08/15/19at 12:01; Start 08/15/19 at 10:58; Stop 08/15/19 at 10:58; Status DC Cellulose (Surgicel Hemostat 2x14) 1 each STK-MED ONCE .ROUTE ; Start 08/15/19 at 10:58; Stop 08/15/19 at 10:59; Status DC Iohexol (Omnipaque 300 Mg/ml) 50 ml STK-MED ONCE .ROUTE ; Start 08/15/19 at 10:58; Stop 08/15/19 at 10:59; Status DC Cellulose (Surgicel Hemostat 4x8) 1 each STK-MED ONCE .ROUTE ; Start 08/15/19 at 10:58; Stop 08/15/19 at 10:59; Status DC Bisacodyl (Dulcolax Supp) 10 mg STK-MED ONCE .ROUTE ; Start 08/15/19 at 10:59; Stop 08/15/19 at 10:59; Status DC Heparin Sodium (Porcine) 1000 unit/Sodium Chloride 1,001 ml @ 1,001 mls/hr 1X ONCE IRR ; Start 08/15/19 at 12:00; Stop 08/15/19 at 12:59; Status DC Propofol 20 ml @ As Directed STK-MED ONCE IV ; Start 08/15/19 at 11:05; Stop 08/15/19 at 11:05; Status DC Sevoflurane (Ultane) 90 ml STK-MED ONCE IH ; Start 08/15/19 at 11:05; Stop 08/15/19 at 11:05; Status DC Sevoflurane (Ultane) 60 ml STK-MED ONCE IH ; Start 08/15/19 at 12:26; Stop 08/15/19 at 12:27; Status DC Propofol 20 ml @ As Directed STK-MED ONCE IV ; Start 08/15/19 at 12:26; Stop 08/15/19 at 12:27; Status DC Phenylephrine HCl (PHENYLEPHRINE in 0.9% NACL PF) 1 mg STK-MED ONCE IV ; Start 08/15/19 at 12:34; Stop 08/15/19 at 12:34; Status DC Heparin Sodium (Porcine) (Heparin Sodium) 5,000 unit Q12HR SQ Last administered on 08/24/19at 20:57; Start 08/15/19 at 21:00; Stop 08/25/19 at 09:59; Status DC Sodium Chloride (Normal Saline Flush) 3 ml QSHIFT PRN IV AFTER MEDS AND BLOOD DRAWS; Start 08/15/19 at 13:45; Status Cancel Naloxone HCl (Narcan) 0.4 mg PRN Q2MIN PRN IV SEE INSTRUCTIONS Last administered on 09/24/19at 15:15; Start 08/15/19 at 13:45; Stop 10/19/19 at 16:00; Status DC Sodium Chloride 1,000 ml @ 25 mls/hr Q24H IV Last administered on 09/13/19at 13:37; Start 08/15/19 at 13:37; Stop 09/16/19 at 13:09; Status DC Naloxone HCl (Narcan) 0.4 mg PRN Q2MIN PRN IV SEE INSTRUCTIONS; Start 08/15/19 at 14:30; Status UNV Sodium Chloride 1,000 ml @ 25 mls/hr Q24H IV ; Start 08/15/19 at 14:30; Status UNV Hydromorphone HCl 30 ml @ 0 mls/hr CONT PRN PRN IV PER PROTOCOL Last administered on 08/20/19at 16:08; Start 08/15/19 at 14:30; Stop 08/22/19 at 08:55; Status DC Potassium Acetate 55 meq/Magnesium Sulfate 20 meq/ Calcium Gluconate 10 meq/ Multivitamins 10 ml/Chromium/ Copper/Manganese/ Seleni/Zn 0.5 ml/ Insulin Human Regular 35 unit/ Total Parenteral Nutrition/Amino Acids/Dextrose/ Fat Emulsion Intravenous 1,920 ml @ 80 mls/hr TPN CONT IV Last administered on 08/15/19at 22:01; Start 08/15/19 at 22:00; Stop 08/16/19 at 21:59; Status DC Bumetanide (Bumex) 2 mg [id number] IV Last administered on 08/19/19at 13:50; Start 08/16/19 at 14:00; Stop 08/20/19 at 14:10; Status DC Meropenem 1 gm/ Sodium Chloride 100 ml @ 200 mls/hr Q8HRS IV Last administered on 09/09/19at 05:53; Start 08/16/19 at 14:00; Stop 09/09/19 at 09:31; Status DC Potassium Acetate 55 meq/Magnesium Sulfate 20 meq/ Calcium Gluconate 10 meq/ Multivitamins 10 ml/Chromium/ Copper/Manganese/ Seleni/Zn 0.5 ml/ Insulin Human Regular 35 unit/ Total Parenteral Nutrition/Amino Acids/Dextrose/ Fat Emulsion Intravenous 1,920 ml @ 80 mls/hr TPN CONT IV Last administered on 08/16/19at 22:02; Start 08/16/19 at 22:00; Stop 08/17/19 at 21:59; Status DC Hydromorphone HCl (Dilaudid Standard POISER BALANCE) 12 mg STK-MED ONCE IV ; Start 08/15/19 at 14:35; Stop 08/16/19 at 13:53; Status DC Artificial Tears (Artificial Tears) 1 drop PRN Q15MIN PRN OU DRY EYE Last administered on 10/11/19at 21:17; Start 08/17/19 at 05:30 Hydromorphone HCl (Dilaudid Standard POISER BALANCE) 12 mg STK-MED ONCE IV ; Start 08/16/19 at 12:05; Stop 08/17/19 at 09:15; Status DC Potassium Acetate 65 meq/Magnesium Sulfate 20 meq/ Calcium Gluconate 10 meq/ Multivitamins 10 ml/Chromium/ Copper/Manganese/ Seleni/Zn 0.5 ml/ Insulin Human Regular 30 unit/ Total Parenteral Nutrition/Amino Acids/Dextrose/ Fat Emulsion Intravenous 1,920 ml @ 80 mls/hr TPN CONT IV Last administered on 08/17/19at 22:22; Start 08/17/19 at 22:00; Stop 08/18/19 at 21:59; Status DC Cyclobenzaprine HCl (Flexeril) 10 mg PRN Q6HRS PRN PO MUSCLE SPASMS Last administered on 10/28/19at 19:12; Start 08/18/19 at 10:45 Potassium Acetate 55 meq/Magnesium Sulfate 20 meq/ Calcium Gluconate 10 meq/ Multivitamins 10 ml/Chromium/ Copper/Manganese/ Seleni/Zn 0.5 ml/ Insulin Human Regular 30 unit/ Total Parenteral Nutrition/Amino Acids/Dextrose/ Fat Emulsion Intravenous 1,920 ml @ 80 mls/hr TPN CONT IV Last administered on 08/19/19at 01:00; Start 08/18/19 at 22:00; Stop 08/19/19 at 21:59; Status DC Magnesium Sulfate 50 ml @ 25 mls/hr 1X ONCE IV Last administered on 08/18/19at 17:18; Start 08/18/19 at 12:45; Stop 08/18/19 at 14:44; Status DC Potassium Chloride/Water 100 ml @ 100 mls/hr 1X ONCE IV Last administered on 08/19/19at 11:27; Start 08/19/19 at 12:00; Stop 08/19/19 at 12:59; Status DC Hydromorphone HCl (Dilaudid Standard POISER BALANCE) 12 mg STK-MED ONCE IV ; Start 08/17/19 at 10:50; Stop 08/19/19 at 11:02; Status DC Hydromorphone HCl (Dilaudid Standard POISER BALANCE) 12 mg STK-MED ONCE IV ; Start 08/18/19 at 13:47; Stop 08/19/19 at 11:03; Status DC Potassium Acetate 30 meq/Magnesium Sulfate 20 meq/ Calcium Gluconate 10 meq/ Multivitamins 10 ml/Chromium/ Copper/Manganese/ Seleni/Zn 0.5 ml/ Insulin Human Regular 30 unit/ Potassium Chloride 30 meq/ Total Parenteral Nutrition/Amino Acids/Dextrose/ Fat Emulsion Intravenous 1,920 ml @ 80 mls/hr TPN CONT IV Last administered on 08/19/19at 22:34; Start 08/19/19 at 22:00; Stop 08/20/19 at 21:59; Status DC Potassium Chloride/Water 100 ml @ 100 mls/hr Q1H IV Last administered on 08/20/19at 13:05; Start 08/20/19 at 07:00; Stop 08/20/19 at 10:59; Status DC Magnesium Sulfate 50 ml @ 25 mls/hr 1X ONCE IV Last administered on 08/20/19at 10:34; Start 08/20/19 at 10:30; Stop 08/20/19 at 12:29; Status DC Potassium Chloride 75 meq/ Magnesium Sulfate 20 meq/Calcium Gluconate 10 meq/ Multivitamins 10 ml/Chromium/ Copper/Manganese/ Seleni/Zn 0.5 ml/ Insulin Human Regular 30 unit/ Total Parenteral Nutrition/Amino Acids/Dextrose/ Fat Emulsion Intravenous 1,920 ml @ 80 mls/hr TPN CONT IV Last administered on 08/20/19at 21:51; Start 08/20/19 at 22:00; Stop 08/21/19 at 22:00; Status DC Potassium Chloride 75 meq/ Magnesium Sulfate 20 meq/Calcium Gluconate 10 meq/ Multivitamins 10 ml/Chromium/ Copper/Manganese/ Seleni/Zn 0.5 ml/ Insulin Human Regular 25 unit/ Total Parenteral Nutrition/Amino Acids/Dextrose/ Fat Emulsion Intravenous 1,920 ml @ 80 mls/hr TPN CONT IV Last administered on 08/21/19at 22:04; Start 08/21/19 at 22:00; Stop 08/22/19 at 21:59; Status DC Hydromorphone HCl (Dilaudid) 0.4 mg PRN Q4HRS PRN IVP PAIN Last administered on 08/22/19at 10:57; Start 08/22/19 at 09:00; Stop 08/22/19 at 18:59; Status DC Micafungin Sodium 100 mg/Dextrose 100 ml @ 100 mls/hr Q24H IV Last administered on 09/13/19at 12:17; Start 08/22/19 at 11:00; Stop 09/14/19 at 09:59; Status DC Daptomycin 485 mg/ Sodium Chloride 50 ml @ 100 mls/hr Q24H IV Last administered on 08/29/19at 13:10; Start 08/22/19 at 11:00; Stop 08/30/19 at 07:44; Status DC Potassium Chloride 75 meq/ Magnesium Sulfate 15 meq/Calcium Gluconate 8 meq/ Multivitamins 10 ml/Chromium/ Copper/Manganese/ Seleni/Zn 0.5 ml/ Insulin Human Regular 25 unit/ Total Parenteral Nutrition/Amino Acids/Dextrose/ Fat Emulsion Intravenous 1,920 ml @ 80 mls/hr TPN CONT IV Last administered on 08/22/19at 23:08; Start 08/22/19 at 22:00; Stop 08/23/19 at 21:59; Status DC Haloperidol Lactate (Haldol Inj) 3 mg 1X ONCE IVP Last administered on 08/22/19at 14:37; Start 08/22/19 at 14:30; Stop 08/22/19 at 14:31; Status DC Hydromorphone HCl (Dilaudid) 1 mg PRN Q4HRS PRN IVP PAIN Last administered on 09/05/19at 06:25; Start 08/22/19 at 19:00; Stop 09/05/19 at 17:10; Status DC Potassium Chloride 75 meq/ Magnesium Sulfate 15 meq/Calcium Gluconate 8 meq/ Multivitamins 10 ml/Chromium/ Copper/Manganese/ Seleni/Zn 0.5 ml/ Insulin Human Regular 20 unit/ Total Parenteral Nutrition/Amino Acids/Dextrose/ Fat Emulsion Intravenous 1,920 ml @ 80 mls/hr TPN CONT IV Last administered on 08/23/19at 22:10; Start 08/23/19 at 22:00; Stop 08/24/19 at 21:59; Status DC Lidocaine HCl (Buffered Lidocaine 1%) 3 ml STK-MED ONCE .ROUTE ; Start 08/24/19 at 11:31; Stop 08/24/19 at 11:31; Status DC Lidocaine HCl (Buffered Lidocaine 1%) 3 ml STK-MED ONCE .ROUTE ; Start 08/24/19 at 12:28; Stop 08/24/19 at 12:29; Status DC Lidocaine HCl (Buffered Lidocaine 1%) 6 ml 1X ONCE INJ Last administered on 08/24/19at 12:53; Start 08/24/19 at 12:45; Stop 08/24/19 at 12:46; Status DC Potassium Chloride 75 meq/ Magnesium Sulfate 15 meq/Calcium Gluconate 8 meq/ Multivitamins 10 ml/Chromium/ Copper/Manganese/ Seleni/Zn 0.5 ml/ Insulin Human Regular 20 unit/ Total Parenteral Nutrition/Amino Acids/Dextrose/ Fat Emulsion Intravenous 1,920 ml @ 80 mls/hr TPN CONT IV Last administered on 08/24/19at 22:00; Start 08/24/19 at 22:00; Stop 08/25/19 at 21:59; Status DC Potassium Chloride 75 meq/ Magnesium Sulfate 15 meq/Calcium Gluconate 8 meq/ Multivitamins 10 ml/Chromium/ Copper/Manganese/ Seleni/Zn 0.5 ml/ Insulin Human Regular 15 unit/ Total Parenteral Nutrition/Amino Acids/Dextrose/ Fat Emulsion Intravenous 1,920 ml @ 80 mls/hr TPN CONT IV Last administered on 08/25/19at 22:28; Start 08/25/19 at 22:00; Stop 08/26/19 at 21:59; Status DC Vecuronium Ada (Norcuron Bolus) 6 mg PRN Q6HRS PRN IV VENT ASYNCHRONY; Start 08/25/19 at 19:15; Stop 08/25/19 at 19:35; Status DC Bumetanide (Bumex) 2 mg 1X ONCE IV Last administered on 08/25/19at 22:09; Start 08/25/19 at 19:45; Stop 08/25/19 at 19:46; Status DC Lidocaine HCl (Buffered Lidocaine 1%) 3 ml STK-MED ONCE .ROUTE ; Start 08/26/19 at 07:59; Stop 08/26/19 at 07:59; Status DC Midazolam HCl (Versed) 5 mg STK-MED ONCE .ROUTE ; Start 08/26/19 at 08:36; Stop 08/26/19 at 08:36; Status DC Fentanyl Citrate (Fentanyl 5ml Vial) 250 mcg STK-MED ONCE .ROUTE ; Start 08/26/19 at 08:36; Stop 08/26/19 at 08:37; Status DC Lidocaine HCl (Buffered Lidocaine 1%) 3 ml 1X ONCE IJ Last administered on 08/26/19at 09:30; Start 08/26/19 at 09:15; Stop 08/26/19 at 09:16; Status DC Midazolam HCl (Versed) 5 mg 1X ONCE IV Last administered on 08/26/19at 09:30; Start 08/26/19 at 09:15; Stop 08/26/19 at 09:16; Status DC Fentanyl Citrate (Fentanyl 5ml Vial) 250 mcg 1X ONCE IV Last administered on 08/26/19at 09:30; Start 08/26/19 at 09:15; Stop 08/26/19 at 09:16; Status DC Bumetanide (Bumex) 2 mg DAILY IV Last administered on 09/05/19at 08:07; Start 08/26/19 at 10:00; Stop 09/05/19 at 17:15; Status DC Potassium Chloride 75 meq/ Magnesium Sulfate 15 meq/ Multivitamins 10 ml/Chromium/ Copper/Manganese/ Seleni/Zn 0.5 ml/ Insulin Human Regular 15 unit/ Total Parenteral Nutrition/Amino Acids/Dextrose/ Fat Emulsion Intravenous 1,920 ml @ 80 mls/hr TPN CONT IV Last administered on 08/26/19at 21:59; Start 08/26/19 at 22:00; Stop 08/27/19 at 21:59; Status DC Metoclopramide HCl (Reglan Vial) 10 mg PRN Q3HRS PRN IVP NAUSEA/VOMITING-3rd choice Last administered on 09/01/19at 04:25; Start 08/27/19 at 16:45 Potassium Chloride 75 meq/ Magnesium Sulfate 15 meq/ Multivitamins 10 ml/Chromium/ Copper/Manganese/ Seleni/Zn 0.5 ml/ Insulin Human Regular 15 unit/ Total Parenteral Nutrition/Amino Acids/Dextrose/ Fat Emulsion Intravenous 1,920 ml @ 80 mls/hr TPN CONT IV Last administered on 08/27/19at 22:41; Start 08/27/19 at 22:00; Stop 08/28/19 at 21:59; Status DC Magnesium Sulfate 50 ml @ 25 mls/hr 1X ONCE IV Last administered on 08/28/19at 10:44; Start 08/28/19 at 09:00; Stop 08/28/19 at 10:59; Status DC Potassium Chloride/Water 100 ml @ 100 mls/hr 1X ONCE IV Last administered on 08/28/19at 09:37; Start 08/28/19 at 09:00; Stop 08/28/19 at 09:59; Status DC Duloxetine HCl (Cymbalta) 30 mg DAILY PO Last administered on 08/29/19at 09:48; Start 08/28/19 at 14:00; Stop 08/31/19 at 10:25; Status DC Potassium Chloride 80 meq/ Magnesium Sulfate 20 meq/ Multivitamins 10 ml/Chromium/ Copper/Manganese/ Seleni/Zn 0.5 ml/ Insulin Human Regular 15 unit/ Total Parenteral Nutrition/Amino Acids/Dextrose/ Fat Emulsion Intravenous 1,920 ml @ 80 mls/hr TPN CONT IV Last administered on 08/28/19at 21:42; Start 08/28/19 at 22:00; Stop 08/29/19 at 21:59; Status DC Potassium Chloride 80 meq/ Magnesium Sulfate 20 meq/ Multivitamins 10 ml/Chromium/ Copper/Manganese/ Seleni/Zn 0.5 ml/ Insulin Human Regular 15 unit/ Total Parenteral Nutrition/Amino Acids/Dextrose/ Fat Emulsion Intravenous 1,920 ml @ 80 mls/hr TPN CONT IV Last administered on 08/29/19at 22:20; Start 08/29/19 at 22:00; Stop 08/30/19 at 21:59; Status DC Lidocaine HCl (Buffered Lidocaine 1%) 3 ml STK-MED ONCE .ROUTE ; Start 08/30/19 at 09:54; Stop 08/30/19 at 09:55; Status DC Hydromorphone HCl (Dilaudid Standard POISER BALANCE) 12 mg STK-MED ONCE IV ; Start 08/19/19 at 15:50; Stop 08/30/19 at 11:24; Status DC Potassium Chloride 80 meq/ Magnesium Sulfate 20 meq/ Multivitamins 10 ml/Chromium/ Copper/Manganese/ Seleni/Zn 0.5 ml/ Insulin Human Regular 15 unit/ Total Parenteral Nutrition/Amino Acids/Dextrose/ Fat Emulsion Intravenous 1,920 ml @ 80 mls/hr TPN CONT IV Last administered on 08/30/19at 21:40; Start 08/30/19 at 22:00; Stop 08/31/19 at 21:59; Status DC Lidocaine HCl (Buffered Lidocaine 1%) 6 ml 1X ONCE INJ Last administered on 08/30/19at 14:15; Start 08/30/19 at 14:15; Stop 08/30/19 at 14:16; Status DC Potassium Chloride 80 meq/ Magnesium Sulfate 20 meq/ Multivitamins 10 ml/Chromium/ Copper/Manganese/ Seleni/Zn 1 ml/ Insulin Human Regular 15 unit/ To anthony Parenteral Nutrition/Amino Acids/Dextrose/ Fat Emulsion Intravenous 1,920 ml @ 80 mls/hr TPN CONT IV Last administered on 08/31/19at 22:04; Start 08/31/19 at 22:00; Stop 09/01/19 at 21:59; Status DC Potassium Chloride/Water 100 ml @ 100 mls/hr 1X ONCE IV Last administered on 09/01/19at 11:34; Start 09/01/19 at 11:00; Stop 09/01/19 at 11:59; Status DC Potassium Chloride 90 meq/ Magnesium Sulfate 20 meq/ Multivitamins 10 ml/Chromium/ Copper/Manganese/ Seleni/Zn 1 ml/ Insulin Human Regular 15 unit/ T otal Parenteral Nutrition/Amino Acids/Dextrose/ Fat Emulsion Intravenous 1,920 ml @ 80 mls/hr TPN CONT IV Last administered on 09/01/19at 22:57; Start 09/01/19 at 22:00; Stop 09/02/19 at 21:59; Status DC Potassium Chloride 90 meq/ Magnesium Sulfate 20 meq/ Multivitamins 10 ml/Chromium/ Copper/Manganese/ Seleni/Zn 1 ml/ Insulin Human Regular 15 unit/ Total Parenteral Nutrition/Amino Acids/Dextrose/ Fat Emulsion Intravenous 1,920 ml @ 80 mls/hr TPN CONT IV Last administered on 09/02/19at 22:48; Start at 22:00; Stop 09/03/19 at 21:59; Status DC Potassium Chloride 90 meq/ Magnesium Sulfate 20 meq/ Multivitamins 10 ml/[employer] mium/ Copper/Manganese/ Seleni/Zn 1 ml/ Insulin Human Regular 15 unit/ Total Parenteral Nutrition/Amino Acids/Dextrose/ Fat Emulsion Intravenous 1,890 ml @ 78.75 mls/ hr TPN CONT IV Last administered on 09/03/19at 22:15; Start 09/03/19 at 22:00; Stop 09/04/19 at 21:59; Status DC Linezolid/Dextrose 300 ml @ 300 mls/hr Q12HR IV Last administered on 09/06/19at 21:08; Start 09/04/19 at 09:00; Stop 09/07/19 at 08:11; Status DC Daptomycin 450 mg/ Sodium Chloride 50 ml @ 100 mls/hr Q24H IV Last administered on 09/07/19at 09:25; Start 09/04/19 at 09:00; Stop 09/08/19 at 08:30; Status DC Potassium Chloride 90 meq/ Magnesium Sulfate 20 meq/ Multivitamins 10 ml/Chromium/ Copper/Manganese/ Seleni/Zn 1 ml/ Insulin Human Regular 15 unit/ Total Parenteral Nutrition/Amino Acids/Dextrose/ Fat Emulsion Intravenous 1,890 ml @ 78.75 mls/ hr TPN CONT IV Last administered on 09/04/19at 21:34; Start 09/04/19 at 22:00; Stop 09/05/19 at 21:59; Status DC Lorazepam (Ativan Inj) 2 mg STK-MED ONCE .ROUTE ; Start 09/04/19 at 14:58; Stop 09/04/19 at 14:58; Status DC Metoprolol Tartrate (Lopressor Vial) 5 mg 1X ONCE IVP Last administered on 09/04/19at 15:31; Start 09/04/19 at 15:15; Stop 09/04/19 at 15:16; Status DC Lorazepam (Ativan Inj) 2 mg 1X ONCE IVP Last administered on 09/04/19at 15:30; Start 09/04/19 at 15:15; Stop 09/04/19 at 15:16; Status DC Enoxaparin Sodium (Lovenox 40mg Syringe) 40 mg Q24H SQ Last administered on 09/23/19at 17:44; Start 09/04/19 at 17:00; Stop 09/25/19 at 06:50; Status DC Lorazepam (Ativan Inj) 1 mg PRN Q4HRS PRN IVP ANXIETY / AGITATION MILD-MOD Last administered on 09/18/19at 15:55; Start 09/04/19 at 19:15; Stop 09/20/19 at 11:45; Status DC Lorazepam (Ativan Inj) 2 mg PRN Q4HRS PRN IVP ANXIETY / AGITATION SEVERE Last administered on 09/19/19at 07:55; Start 09/04/19 at 19:15; Stop 09/20/19 at 11:45; Status DC Fentanyl Citrate (Fentanyl 2ml Vial) 50 mcg PRN Q4HRS PRN IVP SEVERE PAIN Last administered on 10/01/19at 05:15; Start 09/05/19 at 13:15; Stop 10/02/19 at 09:29; Status DC Fentanyl Citrate (Fentanyl 2ml Vial) 25 mcg PRN Q4HRS PRN IVP MODERATE PAIN Last administered on 10/01/19at 00:27; Start 09/05/19 at 13:15; Stop 10/02/19 at 09:30; Status DC Potassium Chloride 90 meq/ Magnesium Sulfate 20 meq/ Multivitamins 10 ml/Chromium/ Copper/Manganese/ Seleni/Zn 1 ml/ Insulin Human Regular 15 unit/ Total Parenteral Nutrition/Amino Acids/Dextrose/ Fat Emulsion Intravenous 1,890 ml @ 78.75 mls/ hr TPN CONT IV Last administered on 09/05/19at 22:18; Start 09/05/19 at 22:00; Stop 09/06/19 at 21:59; Status DC Furosemide (Lasix) 40 mg 1X ONCE IVP Last administered on 09/05/19at 21:51; Start 09/05/19 at 21:45; Stop 09/05/19 at 21:48; Status DC Albumin Human 100 ml @ 100 mls/hr 1X PRN PRN IV SEE COMMENTS; Start 09/06/19 at 01:30 Furosemide (Lasix) 40 mg [id number] IVP Last administered on 09/21/19at 08:04; Start 09/06/19 at 14:00; Stop 09/21/19 at 13:07; Status DC Potassium Chloride 90 meq/ Magnesium Sulfate 20 meq/ Multivitamins 10 ml/Chromium/ Copper/Manganese/ Seleni/Zn 1 ml/ Insulin Human Regular 15 unit/ Total Parenteral Nutrition/Amino Acids/Dextrose/ Fat Emulsion Intravenous 1,800 ml @ 75 mls/hr TPN CONT IV Last administered on 09/06/19at 22:31; Start 09/06/19 at 22:00; Stop 09/07/19 at 21:59; Status DC Potassium Chloride 90 meq/ Magnesium Sulfate 20 meq/ Multivitamins 10 ml/Chromium/ Copper/Manganese/ Seleni/Zn 1 ml/ Insulin Human Regular 15 unit/ Total Parenteral Nutrition/Amino Acids/Dextrose/ Fat Emulsion Intravenous 1,800 ml @ 75 mls/hr TPN CONT IV Last administered on 09/07/19at 22:28; Start 09/07/19 at 22:00; Stop 09/08/19 at 21:59; Status DC Potassium Chloride 110 meq/ Magnesium Sulfate 20 meq/ Multivitamins 10 ml/Chromium/ Copper/Manganese/ Seleni/Zn 1 ml/ Insulin Human Regular 15 unit/ Total Parenteral Nutrition/Amino Acids/Dextrose/ Fat Emulsion Intravenous 1,800 ml @ 75 mls/hr TPN CONT IV Last administered on 09/08/19at 22:01; Start 09/08/19 at 22:00; Stop 09/09/19 at 21:59; Status DC Saliva Substitute (Biotene Moisturizing Mouth) 2 spray PRN Q15MIN PRN PO DRY MOUTH; Start 09/08/19 at 11:00 Potassium Chloride 110 meq/ Magnesium Sulfate 20 meq/ Multivitamins 10 ml/Chromium/ Copper/Manganese/ Seleni/Zn 1 ml/ Insulin Human Regular 15 unit/ Total Parenteral Nutrition/Amino Acids/Dextrose/ Fat Emulsion Intravenous 1,800 ml @ 75 mls/hr TPN CONT IV Last administered on 09/09/19at 22:21; Start 09/09/19 at 22:00; Stop 09/10/19 at 21:59; Status DC Potassium Chloride 110 meq/ Magnesium Sulfate 20 meq/ Multivitamins 10 ml/Chromium/ Copper/Manganese/ Seleni/Zn 1 ml/ Insulin Human Regular 15 unit/ Total Parenteral Nutrition/Amino Acids/Dextrose/ Fat Emulsion Intravenous 1,800 ml @ 75 mls/hr TPN CONT IV Last administered on 09/10/19at 22:04; Start 09/10/19 at 22:00; Stop 09/11/19 at 21:59; Status DC Potassium Chloride 110 meq/ Magnesium Sulfate 20 meq/ Multivitamins 10 ml/Chromium/ Copper/Manganese/ Seleni/Zn 1 ml/ Insulin Human Regular 15 unit/ Total Parenteral Nutrition/Amino Acids/Dextrose/ Fat Emulsion Intravenous 1,800 ml @ 75 mls/hr TPN CONT IV Last administered on 09/11/19at 22:48; Start 09/11/19 at 22:00; Stop 09/12/19 at 21:59; Status DC Potassium Chloride 70 meq/ Magnesium Sulfate 20 meq/ Multivitamins 10 ml/Chromium/ Copper/Manganese/ Seleni/Zn 1 ml/ Insulin Human Regular 15 unit/ Total Parenteral Nutrition/Amino Acids/Dextrose/ Fat Emulsion Intravenous 1,800 ml @ 75 mls/hr TPN CONT IV Last administered on 09/12/19at 21:39; Start 09/12/19 at 22:00; Stop 09/13/19 at 21:59; Status DC Meropenem 500 mg/ Sodium Chloride 50 ml @ 100 mls/hr Q6HRS IV Last administered on 09/14/19at 06:02; Start 09/12/19 at 18:00; Stop 09/14/19 at 09:59; Status DC Barium Sulfate (Varibar Thin Liquid Apple) 148 gm 1X ONCE PO ; Start 09/13/19 at 11:45; Stop 09/13/19 at 11:49; Status DC Potassium Chloride 70 meq/ Magnesium Sulfate 20 meq/ Multivitamins 10 ml/Chromiu m/ Copper/Manganese/ Seleni/Zn 1 ml/ Insulin Human Regular 15 unit/ Total Parenteral Nutrition/Amino Acids/Dextrose/ Fat Emulsion Intravenous 1,800 ml @ 75 mls/hr TPN CONT IV Last administered on 09/13/19at 22:27; Start 09/13/19 at 22:00; Stop 09/14/19 at 21:59; Status DC Piperacillin Sod/ Tazobactam Sod 3.375 gm/Sodium Chloride 50 ml @ 100 mls/hr Q6HRS IV Last administered on 09/22/19at 06:10; Start 09/14/19 at 12:00; Stop 09/22/19 at 07:26; Status DC Potassium Chloride 70 meq/ Magnesium Sulfate 20 meq/ Multivitamins 10 ml/Chromium/ Copper/Manganese/ Seleni/Zn 1 ml/ Insulin Human Regular 15 unit/ Total Parenteral Nutrition/Amino Acids/Dextrose/ Fat Emulsion Intravenous 1,800 ml @ 75 mls/hr TPN CONT IV Last administered on 09/14/19at 22:03; Start at 22:00; Stop 09/15/19 at 21:59; Status DC Potassium Chloride 70 meq/ Magnesium Sulfate 20 meq/ Multivitamins 10 ml/Chromiu m/ Copper/Manganese/ Seleni/Zn 1 ml/ Insulin Human Regular 15 unit/ Total Parenteral Nutrition/Amino Acids/Dextrose/ Fat Emulsion Intravenous 1,800 ml @ 75 mls/hr TPN CONT IV Last administered on 09/15/19at 22:33; Start 09/15/19 at 22:00; Stop 09/16/19 at 21:59; Status DC Potassium Chloride 70 meq/ Magnesium Sulfate 20 meq/ Multivitamins 10 ml/Chromium/ Copper/Manganese/ Seleni/Zn 1 ml/ Insulin Human Regular 15 unit/ Total Parenteral Nutrition/Amino Acids/Dextrose/ Fat Emulsion Intravenous 1,800 ml @ 75 mls/hr TPN CONT IV Last administered on 09/16/19at 23:13; Start 09/16/19 at 22:00; Stop 09/17/19 at 21:59; Status DC Potassium Chloride 80 meq/ Magnesium Sulfate 20 meq/ Multivitamins 10 ml/Chromium/ Copper/Manganese/ Seleni/Zn 1 ml/ Insulin Human Regular 15 unit/ Total Parenteral Nutrition/Amino Acids/Dextrose/ Fat Emulsion Intravenous 1,800 ml @ 75 mls/hr TPN CONT IV Last administered on 09/17/19at 22:30; Start 09/17/19 at 22:00; Stop 09/18/19 at 21:59; Status DC Potassium Chloride 80 meq/ Magnesium Sulfate 20 meq/ Multivitamins 10 ml/Chromium/ Copper/Manganese/ Seleni/Zn 1 ml/ Insulin Human Regular 15 unit/ Total Parenteral Nutrition/Amino Acids/Dextrose/ Fat Emulsion Intravenous 1,800 ml @ 75 mls/hr TPN CONT IV Last administered on 09/18/19at 21:54; Start 09/18/19 at 22:00; Stop 09/19/19 at 21:59; Status DC Potassium Chloride/Water 100 ml @ 100 mls/hr 1X ONCE IV Last administered on 09/19/19at 10:15; Start 09/19/19 at 10:00; Stop 09/19/19 at 10:59; Status DC Potassium Chloride 90 meq/ Magnesium Sulfate 20 meq/ Multivitamins 10 ml/Chromium/ Copper/Manganese/ Seleni/Zn 1 ml/ Insulin Human Regular 20 unit/ Total Parenteral Nutrition/Amino Acids/Dextrose/ Fat Emulsion Intravenous 1,800 ml @ 75 mls/hr TPN CONT IV Last administered on 09/19/19at 22:28; Start 09/19/19 at 22:00; Stop 09/20/19 at 21:59; Status DC Potassium Chloride 90 meq/ Magnesium Sulfate 20 meq/ Multivitamins 10 ml/Chromium/ Copper/Manganese/ Seleni/Zn 1 ml/ Insulin Human Regular 20 unit/ Total Parenteral Nutrition/Amino Acids/Dextrose/ Fat Emulsion Intravenous 1,800 ml @ 75 mls/hr TPN CONT IV Last administered on 09/20/19at 22:08; Start 09/20/19 at 22:00; Stop 09/21/19 at 21:59; Status DC Lorazepam (Ativan Inj) 0.25 mg PRN Q4HRS PRN IVP ANXIETY / AGITATION Last administered on 10/30/19at 00:27; Start 09/21/19 at 07:30 Potassium Chloride 90 meq/ Magnesium Sulfate 20 meq/ Multivitamins 10 ml/Chromium/ Copper/Manganese/ Seleni/Zn 1 ml/ Insulin Human Regular 20 unit/ Total Parenteral Nutrition/Amino Acids/Dextrose/ Fat Emulsion Intravenous 1,800 ml @ 75 mls/hr TPN CONT IV Last administered on 09/21/19at 23:13; Start 09/21/19 at 22:00; Stop 09/22/19 at 21:59; Status DC Furosemide (Lasix) 40 mg DAILY IVP Last administered on 09/23/19at 11:14; Start 09/21/19 at 13:30; Stop 09/25/19 at 09:12; Status DC Fluoxetine HCl (PROzac) 20 mg QHS PEG Last administered on 11/03/19at 21:05; Start 09/22/19 at 21:00 Fentanyl (Duragesic 50mcg/ Hr Patch) 1 patch Q72H TD Last administered on 09/22/19at 21:22; Start 09/22/19 at 21:00; Stop 10/01/19 at 12:00; Status DC Potassium Chloride 40 meq/ Potassium Acetate 60 meq/Magnesium Sulfate 10 meq/ Multivitamins 10 ml/Chromium/ Copper/Manganese/ Seleni/Zn 1 ml/ Insulin Human Regular 20 unit/ Total Parenteral Nutrition/Amino Acids/Dextrose/ Fat Emulsion Intravenous 1,800 ml @ 75 mls/hr TPN CONT IV Last administered on 09/23/19at 00:03; Start 09/22/19 at 22:00; Stop 09/23/19 at 21:59; Status DC Potassium Acetate 80 meq/Magnesium Sulfate 5 meq/ Multivitamins 10 ml/Chromium/ Copper/Manganese/ Seleni/Zn 1 ml/ Insulin Human Regular 20 unit/ Total Parenteral Nutrition/Amino Acids/Dextrose/ Fat Emulsion Intravenous 1,920 ml @ 80 mls/hr TPN CONT IV Last administered on 09/23/19at 21:59; Start 09/23/19 at 22:00; Stop 09/24/19 at 21:59; Status DC Potassium Acetate 60 meq/Magnesium Sulfate 5 meq/ Multivitamins 10 ml/Chromium/ Copper/Manganese/ Seleni/Zn 1 ml/ Insulin Human Regular 30 unit/ Total Parenteral Nutrition/Amino Acids/Dextrose/ Fat Emulsion Intravenous 1,920 ml @ 80 mls/hr TPN CONT IV Last administered on 09/24/19at 21:54; Start 09/24/19 at 22:00; Stop 09/25/19 at 21:59; Status DC Norepinephrine Bitartrate 8 mg/ Dextrose 258 ml @ 13.332 mls/ hr CONT PRN IV PER PROTOCOL Last administered on 10/20/19at 09:09; Start 09/25/19 at 06:30 Albumin Human 500 ml @ 125 mls/hr 1X ONCE IV Last administered on 09/25/19at 08:10; Start 09/25/19 at 08:15; Stop 09/25/19 at 12:14; Status DC Potassium Acetate 40 meq/Magnesium Sulfate 5 meq/ Multivitamins 10 ml/Chromium/ Copper/Manganese/ Seleni/Zn 1 ml/ Insulin Human Regular 30 unit/ Total Parenteral Nutrition/Amino Acids/Dextrose/ Fat Emulsion Intravenous 1,920 ml @ 80 mls/hr TPN CONT IV Last administered on 09/25/19at 22:23; Start 09/25/19 at 22:00; Stop 09/26/19 at 21:59; Status DC Meropenem 1 gm/ Sodium Chloride 100 ml @ 200 mls/hr Q8HRS IV ; Start 09/25/19 at 14:00; Status Cancel Meropenem 1 gm/ Sodium Chloride 100 ml @ 200 mls/hr Q8HRS IV Last administered on 09/25/19at 11:04; Start 09/25/19 at 10:00; Stop 09/25/19 at 13:00; Status DC Meropenem 1 gm/ Sodium Chloride 100 ml @ 200 mls/hr Q12HR IV Last administered on 10/13/19at 08:27; Start 09/25/19 at 21:00; Stop 10/13/19 at 08:56; Status DC Sodium Chloride 1,000 ml @ 1,000 mls/hr 1X ONCE IV Last administered on 09/25/19at 11:06; Start 09/25/19 at 10:45; Stop 09/25/19 at 11:44; Status DC Micafungin Sodium 100 mg/Dextrose 100 ml @ 100 mls/hr Q24H IV Last administered on 10/12/19at 12:34; Start 09/25/19 at 11:00; Stop 10/13/19 at 08:56; Status DC Daptomycin 410 mg/ Sodium Chloride 50 ml @ 100 mls/hr Q24H IV Last administered on 09/27/19at 13:33; Start 09/25/19 at 14:00; Stop 09/28/19 at 08:30; Status DC Midazolam HCl (Versed) 2 mg STK-MED ONCE .ROUTE ; Start 09/25/19 at 14:47; Stop 09/25/19 at 14:48; Status DC Fentanyl Citrate (Fentanyl 2ml Vial) 100 mcg STK-MED ONCE .ROUTE ; Start 09/25/19 at 14:47; Stop 09/25/19 at 14:48; Status DC Flumazenil (Romazicon) 0.5 mg STK-MED ONCE IV ; Start 09/25/19 at 14:48; Stop 09/25/19 at 14:48; Status DC Naloxone HCl (Narcan) 0.4 mg STK-MED ONCE .ROUTE ; Start 09/25/19 at 14:48; Stop 09/25/19 at 14:48; Status DC Lidocaine HCl (Lidocaine 1% 20ml Vial) 20 ml STK-MED ONCE .ROUTE ; Start 09/25/19 at 14:48; Stop 09/25/19 at 14:48; Status DC Midazolam HCl (Versed) 2 mg 1X ONCE IV Last administered on 09/25/19at 15:28; Start 09/25/19 at 15:00; Stop 09/25/19 at 15:01; Status DC Fentanyl Citrate (Fentanyl 2ml Vial) 100 mcg 1X ONCE IV Last administered on 09/25/19at 15:28; Start 09/25/19 at 15:00; Stop 09/25/19 at 15:01; Status DC Lidocaine HCl (Lidocaine 1% 20ml Vial) 20 ml 1X ONCE INJ Last administered on 09/25/19at 15:30; Start 09/25/19 at 15:00; Stop 09/25/19 at 15:01; Status DC Sodium Chloride 1,000 ml @ 100 mls/hr Q10H IV Last administered on 10/04/19at 07:30; Start 09/25/19 at 20:00; Stop 10/04/19 at 11:26; Status DC Sodium Bicarbonate (Sodium Bicarb Adult 8.4% Syr) 50 meq 1X ONCE IV Last administered on 09/25/19at 21:47; Start 09/25/19 at 22:00; Stop 09/25/19 at 22:01; Status DC Potassium Acetate 40 meq/Magnesium Sulfate 5 meq/ Multivitamins 10 ml/Chromium/ Copper/Manganese/ Seleni/Zn 1 ml/ Insulin Human Regular 30 unit/ Total Parentera l Nutrition/Amino Acids/Dextrose/ Fat Emulsion Intravenous 1,920 ml @ 80 mls/hr TPN CONT IV Last administered on 09/26/19at 22:28; Start 09/26/19 at 22:00; Stop 09/27/19 at 21:59; Status DC Sodium Chloride 500 ml @ 500 mls/hr 1X ONCE IV Last administered on 09/27/19at 06:39; Start 09/27/19 at 06:45; Stop 09/27/19 at 07:44; Status DC Potassium Acetate 40 meq/Magnesium Sulfate 5 meq/ Multivitamins 10 ml/Chromium/ Copper/Manganese/ Seleni/Zn 1 ml/ Insulin Human Regular 30 unit/ Total Parenteral Nutrition/Amino Acids/Dextrose/ Fat Emulsion Intravenous 1,920 ml @ 80 mls/hr TPN CONT IV Last administered on 09/27/19at 22:03; Start 09/27/19 at 22:00; Stop 09/28/19 at 21:59; Status DC Metoprolol Tartrate (Lopressor Vial) 5 mg PRN Q6HRS PRN IVP HYPERTENSION Last administered on 10/30/19at 18:01; Start 09/28/19 at 09:00 Potassium Acetate 40 meq/Magnesium Sulfate 5 meq/ Multivitamins 10 ml/Chromium/ Copper/Manganese/ Seleni/Zn 1 ml/ Insulin Human Regular 30 unit/ Total Parenteral Nutrition/Amino Acids/Dextrose/ Fat Emulsion Intravenous 1,920 ml @ 80 mls/hr TPN CONT IV Last administered on 09/28/19at 21:26; Start 09/28/19 at 22:00; Stop 09/29/19 at 21:59; Status DC Potassium Acetate 40 meq/Magnesium Sulfate 5 meq/ Multivitamins 10 ml/Chromium/ Copper/Manganese/ Seleni/Zn 1 ml/ Insulin Human Regular 30 unit/ Total Parenteral Nutrition/Amino Acids/Dextrose/ Fat Emulsion Intravenous 1,920 ml @ 80 mls/hr TPN CONT IV Last administered on 09/29/19at 23:23; Start 09/29/19 at 22:00; Stop 09/30/19 at 21:59; Status DC Potassium Acetate 40 meq/Magnesium Sulfate 5 meq/ Multivitamins 10 ml/Chromium/ Copper/Manganese/ Seleni/Zn 1 ml/ Insulin Human Regular 30 unit/ Total Parenteral Nutrition/Amino Acids/Dextrose/ Fat Emulsion Intravenous 1,920 ml @ 80 mls/hr TPN CONT IV Last administered on 09/30/19at 21:35; Start 09/30/19 at 22:00; Stop 10/01/19 at 21:59; Status DC Furosemide (Lasix) 20 mg 1X ONCE IVP Last administered on 10/01/19at 06:26; Start 10/01/19 at 06:15; Stop 10/01/19 at 06:16; Status DC Methylprednisolone Sodium Succinate (SOLU-Medrol 125MG VIAL) 125 mg 1X ONCE IV Last administered on 10/01/19at 06:26; Start 10/01/19 at 06:15; Stop 10/01/19 at 06:16; Status DC Albuterol/ Ipratropium (Duoneb) 3 ml Q4HRS NEB Last administered on 11/04/19at 07:28; Start 10/01/19 at 08:00 Fentanyl Citrate 30 ml @ 0 mls/hr CONT PRN IV SEE PROTOCOL Last administered on 10/22/19at 08:03; Start 10/01/19 at 06:00; Stop 10/22/19 at 12:42; Status DC Propofol 100 ml @ 0 mls/hr CONT PRN IV SEE PROTOCOL Last administered on 10/08/19at 23:50; Start 10/01/19 at 06:00 Fentanyl Citrate (Fentanyl 2ml Vial) 25 mcg PRN Q1HR PRN IV SEE COMMENTS Last administered on 11/04/19at 00:40; Start 10/01/19 at 06:00 Fentanyl Citrate (Fentanyl 2ml Vial) 50 mcg PRN Q1HR PRN IV SEE COMMENTS Last administered on 10/30/19at 18:02; Start 10/01/19 at 06:00 Chlorhexidine Gluconate (Peridex) 15 ml BID MM ; Start 10/01/19 at 09:00; Stop 10/01/19 at 07:58; Status DC Potassium Acetate 40 meq/Magnesium Sulfate 5 meq/ Multivitamins 10 ml/Chromium/ Copper/Manganese/ Seleni/Zn 1 ml/ Insulin Human Regular 30 unit/ Total Parenteral Nutrition/Amino Acids/Dextrose/ Fat Emulsion Intravenous 1,920 ml @ 80 mls/hr TPN CONT IV Last administered on 10/01/19at 21:19; Start 10/01/19 at 22:00; Stop 10/02/19 at 21:59; Status DC Acetylcysteine (Mucomyst 20% Resp Treatment) 600 mg BID NEB Last administered on 10/07/19at 09:33; Start 10/01/19 at 21:00; Stop 10/07/19 at 10:39; Status DC Magnesium Sulfate 100 ml @ 25 mls/hr 1X ONCE IV Last administered on 10/01/19at 15:48; Start 10/01/19 at 15:45; Stop 10/01/19 at 19:44; Status DC Potassium Acetate 40 meq/Magnesium Sulfate 5 meq/ Multivitamins 10 ml/Chromium/ Copper/Manganese/ Seleni/Zn 1 ml/ Insulin Human Regular 30 unit/ Total Parenteral Nutrition/Amino Acids/Dextrose/ Fat Emulsion Intravenous 1,920 ml @ 80 mls/hr TPN CONT IV Last administered on 10/02/19at 21:35; Start 10/02/19 at 22:00; Stop 10/03/19 at 21:59; Status DC Potassium Chloride/Water 100 ml @ 100 mls/hr Q1H IV Last administered on 10/03/19at 08:31; Start 10/03/19 at 07:00; Stop 10/03/19 at 08:59; Status DC Potassium Acetate 40 meq/Magnesium Sulfate 5 meq/ Multivitamins 10 ml/Chromium/ Copper/Manganese/ Seleni/Zn 1 ml/ Insulin Human Regular 30 unit/ Total Parenteral Nutrition/Amino Acids/Dextrose/ Fat Emulsion Intravenous 1,920 ml @ 80 mls/hr TPN CONT IV Last administered on 10/03/19at 21:54; Start 10/03/19 at 22:00; Stop 10/04/19 at 19:34; Status DC Lidocaine HCl (Buffered Lidocaine 1%) 3 ml STK-MED ONCE .ROUTE ; Start 10/03/19 at 12:14; Stop 10/03/19 at 12:14; Status DC Lidocaine HCl (Buffered Lidocaine 1%) 3 ml 1X ONCE IJ Last administered on 10/03/19at 13:11; Start 10/03/19 at 13:00; Stop 10/03/19 at 13:01; Status DC Magnesium Sulfate 50 ml @ 25 mls/hr 1X ONCE IV ; Start 10/04/19 at 08:15; Stop 10/04/19 at 10:14; Status DC Potassium Acetate 40 meq/Magnesium Sulfate 10 meq/ Multivitamins 10 ml/Chromium/ Copper/Manganese/ Seleni/Zn 1 ml/ Insulin Human Regular 20 unit/ Total Parenteral Nutrition/Amino Acids/Dextrose/ Fat Emulsion Intravenous 1,920 ml @ 80 mls/hr TPN CONT IV Last administered on 10/04/19at 21:32; Start 10/04/19 at 22:00; Stop 10/05/19 at 21:59; Status DC Potassium Chloride/Water 100 ml @ 100 mls/hr Q1H IV Last administered on 10/05/19at 09:12; Start 10/05/19 at 08:00; Stop 10/05/19 at 09:59; Status DC Alteplase, Recombinant (Cathflo For Central Catheter Clearance) 4 mg 1X ONCE INT CAT ; Start 10/05/19 at 09:15; Stop 10/05/19 at 09:16; Status UNV Alteplase, Recombinant (Cathflo For Central Catheter Clearance) 4 mg 1X ONCE INT CAT ; Start 10/05/19 at 09:15; Stop 10/05/19 at 09:16; Status UNV Alteplase, Recombinant (Cathflo For Central Catheter Clearance) 4 mg 1X ONCE INT CAT ; Start 10/05/19 at 09:15; Stop 10/05/19 at 09:16; Status UNV Alteplase, Recombinant 4 mg/ Sodium Chloride 20 ml @ 20 mls/hr 1X ONCE IV Last administered on 10/05/19at 10:10; Start 10/05/19 at 10:00; Stop 10/05/19 at 10:59; Status DC Alteplase, Recombinant 4 mg/ Sodium Chloride 20 ml @ 20 mls/hr 1X ONCE IV Last administered on 10/05/19at 10:09; Start 10/05/19 at 10:00; Stop 10/05/19 at 10:59; Status DC Alteplase, Recombinant 4 mg/ Sodium Chloride 20 ml @ 20 mls/hr 1X ONCE IV Last administered on 10/05/19at 10:09; Start 10/05/19 at 10:00; Stop 10/05/19 at 10:59; Status DC Potassium Acetate 60 meq/Magnesium Sulfate 10 meq/ Multivitamins 10 ml/Chromium/ Copper/Manganese/ Seleni/Zn 1 ml/ Insulin Human Regular 20 unit/ Total Parenteral Nutrition/Amino Acids/Dextrose/ Fat Emulsion Intravenous 1,920 ml @ 80 mls/hr TPN CONT IV Last administered on 10/05/19at 21:55; Start 10/05/19 at 22:00; Stop 10/06/19 at 21:59; Status DC Albumin Human 500 ml @ 125 mls/hr 1X ONCE IV Last administered on 10/06/19at 12:01; Start 10/06/19 at 11:15; Stop 10/06/19 at 15:14; Status DC Sodium Chloride 500 ml @ 500 mls/hr 1X ONCE IV Last administered on 10/06/19at 13:50; Start 10/06/19 at 11:15; Stop 10/06/19 at 12:14; Status DC Potassium Acetate 60 meq/Magnesium Sulfate 14 meq/ Multivitamins 10 ml/Chromium/ Copper/Manganese/ Seleni/Zn 1 ml/ Insulin Human Regular 20 unit/ Total Parenteral Nutrition/Amino Acids/Dextrose/ Fat Emulsion Intravenous 1,920 ml @ 80 mls/hr TPN CONT IV Last administered on 10/06/19at 22:26; Start 10/06/19 at 22:00; Stop 10/07/19 at 21:59; Status DC Ciprofloxacin/ Dextrose 200 ml @ 200 mls/hr Q12HR IV Last administered on 10/12at 08:27; Start 10/06/19 at 21:00; Stop 10/13/19 at 08:56; Status DC Albumin Human 250 ml @ 62.5 mls/hr 1X ONCE IV Last administered on 10/07/19at 11:09; Start 10/07/19 at 11:00; Stop 10/07/19 at 14:59; Status DC Furosemide (Lasix) 20 mg 1X ONCE IVP Last administered on 10/07/19at 14:52; Start 10/07/19 at 10:45; Stop 10/07/19 at 10:49; Status DC Potassium Acetate 60 meq/Magnesium Sulfate 14 meq/ Multivitamins 10 ml/Chromium/ Copper/Manganese/ Seleni/Zn 1 ml/ Insulin Human Regular 15 unit/ Total Par enteral Nutrition/Amino Acids/Dextrose/ Fat Emulsion Intravenous 1,920 ml @ 80 mls/hr TPN CONT IV Last administered on 10/07/19at 22:08; Start 10/07/19 at 22:00; Stop 10/08/19 at 21:59; Status DC Potassium Acetate 60 meq/Magnesium Sulfate 14 meq/ Multivitamins 10 ml/Chromium/ Copper/Manganese/ Seleni/Zn 1 ml/ Insulin Human Regular 15 unit/ Total Parenteral Nutrition/Amino Acids/Dextrose/ Fat Emulsion Intravenous 1,920 ml @ 80 mls/hr TPN CONT IV Last administered on 10/08/19at 22:12; Start 10/08/19 at 22:00; Stop 10/09/19 at 21:59; Status DC Potassium Acetate 60 meq/Magnesium Sulfate 14 meq/ Multivitamins 10 ml/Chromium/ Copper/Manganese/ Seleni/Zn 1 ml/ Insulin Human Regular 15 unit/ Total Parenteral Nutrition/Amino Acids/Dextrose/ Fat Emulsion Intravenous 1,920 ml @ 80 mls/hr TPN CONT IV Last administered on 10/09/19at 22:22; Start 10/09/19 at 22:00; Stop 10/10/19 at 21:59; Status DC Furosemide (Lasix) 20 mg 1X ONCE IVP Last administered on 10/10/19at 11:07; Start 10/10/19 at 10:30; Stop 10/10/19 at 10:34; Status DC Potassium Acetate 60 meq/Magnesium Sulfate 14 meq/ Multivitamins 10 ml/Chromium/ Copper/Manganese/ Seleni/Zn 1 ml/ Insulin Human Regular 15 unit/ Sodium Chloride 20 meq/Total Parenteral Nutrition/Amino Acids/Dextrose/ Fat Emulsion Intravenous 1,920 ml @ 80 mls/hr TPN CONT IV Last administered on 10/10/19at 21:54; Start 10/10/19 at 22:00; Stop 10/11/19 at 21:59; Status DC Potassium Acetate 30 meq/Magnesium Sulfate 14 meq/ Multivitamins 10 ml/Chromium/ Copper/Manganese/ Seleni/Zn 1 ml/ Insulin Human Regular 15 unit/ Sodium Chloride 20 meq/Potassium Chloride 30 meq/ Total Parenteral Nutrition/Amino Acids/Dextrose/ Fat Emulsion Intravenous 1,920 ml @ 80 mls/hr TPN CONT IV Last administered on 10/11/19at 21:46; Start 10/11/19 at 22:00; Stop 10/12/19 at 21:59; Status DC Sodium Chloride 80 meq/Potassium Chloride 30 meq/ Potassium Acetate 30 meq/Magnesium Sulfate 14 meq/ Multivitamins 10 ml/Chromium/ Copper/Manganese/ Seleni/Zn 1 ml/ Insulin Human Regular 15 unit/ Total Parenteral Nutrition/Amino Acids/Dextrose/ Fat Emulsion Intravenous 1,920 ml @ 80 mls/hr TPN CONT IV Last administered on 10/12/19at 22:33; Start 10/12/19 at 22:00; Stop 10/13/19 at 21:59; Status DC Furosemide (Lasix) 40 mg 1X ONCE IVP Last administered on 10/12/19at 16:27; Start 10/12/19 at 15:30; Stop 10/12/19 at 15:33; Status DC Albumin Human 250 ml @ 62.5 mls/hr 1X ONCE IV Last administered on 10/12/19at 16:27; Start 10/12/19 at 15:30; Stop 10/12/19 at 19:29; Status DC Sodium Chloride 80 meq/Potassium Chloride 30 meq/ Potassium Acetate 30 meq/Magnesium Sulfate 14 meq/ Multivitamins 10 ml/Chromium/ Copper/Manganese/ Seleni/Zn 1 ml/ Insulin Human Regular 15 unit/ Total Parenteral Nutrition/Amino Acids/Dextrose/ Fat Emulsion Intravenous 1,920 ml @ 80 mls/hr TPN CONT IV Last administered on 10/13/19at 22:25; Start 10/13/19 at 22:00; Stop 10/14/19 at 21:59; Status DC Sodium Chloride 80 meq/Potassium Chloride 30 meq/ Potassium Acetate 30 meq/Magnesium Sulfate 14 meq/ Multivitamins 10 ml/Chromium/ Copper/Manganese/ Seleni/Zn 1 ml/ Insulin Human Regular 15 unit/ Total Parenteral Nutrition/Amino Acids/Dextrose/ Fat Emulsion Intravenous 1,920 ml @ 80 mls/hr TPN CONT IV Last administered on 10/14/19at 21:32; Start 10/14/19 at 22:00; Stop 10/15/19 at 21:59; Status DC Sodium Chloride 80 meq/Potassium Chloride 30 meq/ Potassium Acetate 30 meq/Magnesium Sulfate 14 meq/ Multivitamins 10 ml/Chromium/ Copper/Manganese/ Seleni/Zn 1 ml/ Insulin Human Regular 15 unit/ Total Parenteral Nutrition/Amino Acids/Dextrose/ Fat Emulsion Intravenous 1,920 ml @ 80 mls/hr TPN CONT IV Last administered on 10/15/19at 21:53; Start 10/15/19 at 22:00; Stop 10/16/19 at 21:59; Status DC Acetylcysteine (Mucomyst 20% Resp Treatment) 600 mg RTBID NEB Last administered on 11/04/19at 07:25; Start 10/15/19 at 12:00 Sodium Chloride 80 meq/Potassium Chloride 30 meq/ Potassium Acetate 30 meq/Magnesium Sulfate 14 meq/ Multivitamins 10 ml/Chromium/ Copper/Manganese/ Seleni/Zn 1 ml/ Insulin Human Regular 15 unit/ Total Parenteral Nutrition/Amino Acids/Dextrose/ Fat Emulsion Intravenous 1,920 ml @ 80 mls/hr TPN CONT IV Last administered on 10/16/19at 22:06; Start 10/16/19 at 22:00; Stop 10/17/19 at 21:59; Status DC Meropenem 500 mg/ Sodium Chloride 50 ml @ 100 mls/hr Q6HRS IV Last administered on 11/04/19at 05:37; Start 10/16/19 at 18:00 Daptomycin 500 mg/ Sodium Chloride 50 ml @ 100 mls/hr Q24H IV Last administered on 10/24/19at 21:47; Start 10/16/19 at 19:00; Stop 10/25/19 at 08:13; Status DC Sodium Chloride 80 meq/Potassium Chloride 30 meq/ Potassium Acetate 30 meq/Magnesium Sulfate 14 meq/ Multivitamins 10 ml/Chromium/ Copper/Manganese/ Seleni/Zn 1 ml/ Insulin Human Regular 15 unit/ Total Parenteral Nutrition/Amino Acids/Dextrose/ Fat Emulsion Intravenous 1,920 ml @ 80 mls/hr TPN CONT IV Last administered on 10/17/19at 22:09; Start 10/17/19 at 22:00; Stop 10/18/19 at 21:59; Status DC Heparin Sodium (Porcine) 1000 unit/Sodium Chloride 1,001 ml @ 1,001 mls/hr 1X ONCE IRR ; Start 10/18/19 at 06:00; Stop 10/18/19 at 06:59; Status DC Propofol (Diprivan) 200 mg STK-MED ONCE IV ; Start 10/18/19 at 07:44; Stop 10/18/19 at 07:44; Status DC Lidocaine HCl (Lidocaine Pf 2% Vial) 5 ml STK-MED ONCE .ROUTE ; Start 10/18/19 at 07:44; Stop 10/18/19 at 07:44; Status DC Fentanyl Citrate (Fentanyl 2ml Vial) 100 mcg STK-MED ONCE .ROUTE ; Start 10/18/19 at 07:44; Stop 10/18/19 at 07:44; Status DC Rocuronium Ada (Zemuron) 100 mg STK-MED ONCE .ROUTE ; Start 10/18/19 at 07:44; Stop 10/18/19 at 07:44; Status DC Micafungin Sodium 100 mg/Dextrose 100 ml @ 100 mls/hr Q24H IV Last administered on 11/04/19at 08:22; Start 10/18/19 at 08:30 Bupivacaine HCl/ Epinephrine Bitart (Sensorcain-Epi 0.5%-1:040854 Mpf) 30 ml STK-MED ONCE .ROUTE ; Start 10/18/19 at 08:34; Stop 10/18/19 at 08:35; Status DC Iohexol (Omnipaque 300 Mg/ml) 50 ml STK-MED ONCE .ROUTE Last administered on 10/18/19at 13:30; Start 10/18/19 at 08:35; Stop 10/18/19 at 08:35; Status DC Sodium Chloride 80 meq/Potassium Chloride 30 meq/ Potassium Acetate 30 meq/Magnesium Sulfate 14 meq/ Multivitamins 10 ml/Chromium/ Copper/Manganese/ Seleni/Zn 1 ml/ Insulin Human Regular 15 unit/ Total Parenteral Nutrition/Amino Acids/Dextrose/ Fat Emulsion Intravenous 1,920 ml @ 80 mls/hr TPN CONT IV Last administered on 10/19/19at 01:22; Start 10/18/19 at 22:00; Stop 10/19/19 at 21:59; Status DC Phenylephrine HCl (Brayden-Synephrine Inj) 10 mg STK-MED ONCE .ROUTE ; Start 10/18/19 at 10:15; Stop 10/18/19 at 10:15; Status DC Desflurane (Suprane) 90 ml STK-MED ONCE IH ; Start 10/18/19 at 10:18; Stop 10/18/19 at 10:19; Status DC Albumin Human 500 ml @ As Directed STK-MED ONCE IV ; Start 10/18/19 at 11:06; Stop 10/18/19 at 11:06; Status DC Vasopressin (Vasostrict) 20 unit STK-MED ONCE .ROUTE ; Start 10/18/19 at 12:23; Stop 10/18/19 at 12:23; Status DC Phenylephrine HCl (Brayden-Synephrine Inj) 10 mg STK-MED ONCE .ROUTE ; Start 10/18/19 at 13:33; Stop 10/18/19 at 13:33; Status DC Phenylephrine HCl (Brayden-Synephrine Inj) 10 mg STK-MED ONCE .ROUTE ; Start 10/18/19 at 13:33; Stop 10/18/19 at 13:33; Status DC Ondansetron HCl (Zofran) 4 mg STK-MED ONCE .ROUTE ; Start 10/18/19 at 13:33; Stop 10/18/19 at 13:33; Status DC Enoxaparin Sodium (Lovenox 40mg Syringe) 40 mg Q24H SQ Last administered on 11/04/19at 08:24; Start 10/19/19 at 08:00 Sodium Chloride (Normal Saline Flush) 3 ml QSHIFT PRN IV AFTER MEDS AND BLOOD DRAWS; Start 10/18/19 at 14:45 Naloxone HCl (Narcan) 0.4 mg PRN Q2MIN PRN IV SEE INSTRUCTIONS; Start 10/18/19 at 14:45 Sodium Chloride 1,000 ml @ 25 mls/hr Q24H IV Last administered on 11/03/19at 14:33; Start 10/18/19 at 14:33 Morphine Sulfate (Morphine Sulfate) 1 mg PRN Q1HR PRN IV PAIN; Start 10/18/19 at 14:45 Midazolam HCl 100 mg/Sodium Chloride 100 ml @ 1 mls/hr CONT PRN IV SEE I/O RECORD Last administered on 10/21/19at 18:48; Start 10/18/19 at 14:45 Phenylephrine HCl (PHENYLEPHRINE in 0.9% NACL PF) 1 mg STK-MED ONCE IV ; Start 10/18/19 at 14:44; Stop 10/18/19 at 14:45; Status DC Ephedrine Sulfate (ePHEDrine PF IN SALINE SYRINGE) 50 mg STK-MED ONCE IV ; Start 10/18/19 at 14:45; Stop 10/18/19 at 14:45; Status DC Vasopressin 20 unit/Dextrose 101 ml @ 12 mls/hr CONT PRN IV SEE I/O RECORD Last administered on 10/25/19at 04:17; Start 10/18/19 at 15:30 Sodium Chloride 1,000 ml @ 1,000 mls/hr 1X ONCE IV Last administered on 10/18/19at 15:42; Start 10/18/19 at 15:45; Stop 10/18/19 at 16:44; Status DC Albumin Human 500 ml @ 125 mls/hr 1X ONCE IV ; Start 10/18/19 at 16:00; Stop 10/18/19 at 19:59; Status DC Albumin Human 500 ml @ 125 mls/hr PRN Q1HR PRN IV PER PROTOCOL; Start 10/18/19 at 15:45 Magnesium Sulfate 50 ml @ 25 mls/hr 1X ONCE IV Last administered on 10/18/19at 17:02; Start 10/18/19 at 16:30; Stop 10/18/19 at 18:29; Status DC Sodium Bicarbonate (Sodium Bicarb Adult 8.4% Syr) 50 meq STK-MED ONCE .ROUTE ; Start 10/18/19 at 16:20; Stop 10/18/19 at 16:20; Status DC Sodium Bicarbonate (Sodium Bicarb Adult 8.4% Syr) 100 meq 1X ONCE IV Last administered on 10/18/19at 17:07; Start 10/18/19 at 16:30; Stop 10/18/19 at 16:31; Status DC Sodium Bicarbonate 150 meq/Dextrose 1,150 ml @ 75 mls/hr 1X ONCE IV Last administered on 10/18/19at 20:02; Start 10/18/19 at 16:30; Stop 10/19/19 at 07:49; Status DC Sodium Chloride 80 meq/Potassium Chloride 30 meq/ Potassium Acetate 30 meq/Magnesium Sulfate 14 meq/ Multivitamins 10 ml/Chromium/ Copper/Manganese/ Seleni/Zn 1 ml/ Insulin Human Regular 15 unit/ Total Parenteral Nutrition/Amino Acids/Dextrose/ Fat Emulsion Intravenous 1,920 ml @ 80 mls/hr TPN CONT IV Last administered on 10/19/19at 23:05; Start 10/19/19 at 22:00; Stop 10/20/19 at 21:59; Status DC Sodium Chloride 100 meq/Potassium Chloride 30 meq/ Potassium Acetate 30 meq/Magnesium Sulfate 12 meq/ Multivitamins 10 ml/Chromium/ Copper/Manganese/ Seleni/Zn 1 ml/ Insulin Human Regular 15 unit/ Total Parenteral Nutrition/Amino Acids/Dextrose/ Fat Emulsion Intravenous 1,920 ml @ 80 mls/hr TPN CONT IV L ast administered on 10/20/19at 21:52; Start 10/20/19 at 22:00; Stop 10/21/19 at 21:59; Status DC Sodium Chloride 100 meq/Potassium Chloride 30 meq/ Potassium Acetate 30 meq/Magnesium Sulfate 12 meq/ Multivitamins 10 ml/Chromium/ Copper/Manganese/ Seleni/Zn 1 ml/ Insulin Human Regular 15 unit/ Total Parenteral Nutrition/Amino Acids/Dextrose/ Fat Emulsion Intravenous 1,920 ml @ 80 mls/hr TPN CONT IV Last administered on 10/21/19at 21:46; Start 10/21/19 at 22:00; Stop 10/22/19 at 21:59; Status DC Sodium Chloride 100 meq/Potassium Chloride 30 meq/ Potassium Acetate 30 meq/Magnesium Sulfate 12 meq/ Multivitamins 10 ml/Chromium/ Copper/Manganese/ Seleni/Zn 1 ml/ Insulin Human Regular 15 unit/ Total Parenteral Nutrition/Amino Acids/Dextrose/ Fat Emulsion Intravenous 1,800 ml @ 75 mls/hr TPN CONT IV Last administered on 10/22/19at 22:04; Start 10/22/19 at 22:00; Stop 10/23/19 at 21:59; Status DC Fentanyl Citrate 55 ml @ 0 mls/hr CONT PRN IV SEE COMMENTS Last administered on 10/24/19at 23:55; Start 10/22/19 at 13:00; Stop 10/27/19 at 17:28; Status DC Sodium Chloride 100 meq/Potassium Chloride 30 meq/ Potassium Acetate 30 meq/Magnesium Sulfate 12 meq/ Multivitamins 10 ml/Chromium/ Copper/Manganese/ Seleni/Zn 1 ml/ Insulin Human Regular 15 unit/ Total Parenteral Nutrition/Amino Acids/Dextrose/ Fat Emulsion Intravenous 1,680 ml @ 70 mls/hr TPN CONT IV Last administered on 10/23/19at 21:23; Start 10/23/19 at 22:00; Stop 10/24/19 at 21:59; Status DC Sodium Chloride 110 meq/Potassium Chloride 30 meq/ Potassium Acetate 30 meq/Magnesium Sulfate 15 meq/ Multivitamins 10 ml/Chromium/ Copper/Manganese/ Seleni/Zn 1 ml/ Insulin Human Regular 15 unit/ Total Parenteral Nutrition/Amino Acids/Dextrose/ Fat Emulsion Intravenous 1,680 ml @ 70 mls/hr TPN CONT IV Last administered on 10/24/19at 21:48; Start 10/24/19 at 22:00; Stop 10/25/19 at 21:59; Status DC Sodium Chloride 110 meq/Potassium Chloride 30 meq/ Potassium Acetate 30 meq/Magnesium Sulfate 15 meq/ Multivitamins 10 ml/Chromium/ Copper/Manganese/ Seleni/Zn 1 ml/ Insulin Human Regular 15 unit/ Total Parenteral Nutrition/Amino Acids/Dextrose/ Fat Emulsion Intravenous 1,680 ml @ 70 mls/hr TPN CONT IV Last administered on 10/25/19at 21:33; Start 10/25/19 at 22:00; Stop 10/26/19 at 21:59; Status DC Sodium Chloride 110 meq/Potassium Chloride 30 meq/ Potassium Acetate 30 meq/Magnesium Sulfate 15 meq/ Multivitamins 10 ml/Chromium/ Copper/Manganese/ Seleni/Zn 1 ml/ Insulin Human Regular 15 unit/ Total Parenteral Nutrition/Amino Acids/Dextrose/ Fat Emulsion Intravenous 1,680 ml @ 70 mls/hr TPN CONT IV Last administered on 10/26/19at 21:51; Start 10/26/19 at 22:00; Stop 10/27/19 at 21:59; Status DC Sodium Chloride 90 meq/Potassium Chloride 30 meq/ Potassium Acetate 30 meq/Magnesium Sulfate 15 meq/ Multivitamins 10 ml/Chromium/ Copper/Manganese/ Seleni/Zn 1 ml/ Insulin Human Regular 15 unit/ Total Parenteral Nutrition/Amino Acids/Dextrose/ Fat Emulsion Intravenous 1,680 ml @ 70 mls/hr TPN CONT IV Last administered on 10/27/19at 22:38; Start 10/27/19 at 22:00; Stop 10/28/19 at 21:59; Status DC Fentanyl Citrate 30 ml @ 0 mls/hr CONT PRN IV SEE I/O RECORD; Start 10/27/19 at 17:30 Fentanyl (Duragesic 12mcg/ Hr Patch) 1 patch Q3DAYS TD Last administered on 11/03/19at 08:27; Start 10/28/19 at 09:00 Sodium Chloride 90 meq/Potassium Chloride 30 meq/ Potassium Acetate 30 meq/Magnesium Sulfate 15 meq/ Multivitamins 10 ml/Chromium/ Copper/Manganese/ Seleni/Zn 1 ml/ Insulin Human Regular 15 unit/ Total Parenteral Nutrition/Amino Acids/Dextrose/ Fat Emulsion Intravenous 1,680 ml @ 70 mls/hr TPN CONT IV Last administered on 10/28/19at 21:59; Start 10/28/19 at 22:00; Stop 10/29/19 at 21:59; Status DC Sodium Chloride 90 meq/Potassium Chloride 30 meq/ Potassium Acetate 30 meq/Magnesium Sulfate 15 meq/ Multivitamins 10 ml/Chromium/ Copper/Manganese/ Seleni/Zn 1 ml/ Insulin Human Regular 15 unit/ Total Parenteral Nutrition/Amino Acids/Dextrose/ Fat Emulsion Intravenous 1,680 ml @ 70 mls/hr TPN CONT IV Last administered on 10/29/19at 21:35; Start 10/29/19 at 22:00; Stop 10/30/19 at 21:59; Status DC Vancomycin HCl (Vanco Per Pharmacy) 1 each PRN DAILY PRN MC SEE COMMENTS Last administered on 11/01/19at 02:46; Start 10/30/19 at 09:15; Stop 11/02/19 at 07:41; Status DC Ciprofloxacin/ Dextrose 200 ml @ 200 mls/hr Q12HR IV Last administered on 11/04/19at 08:25; Start 10/30/19 at 10:00 Vancomycin HCl 2 gm/Sodium Chloride 500 ml @ 250 mls/hr 1X ONCE IV Last administered on 10/30/19at 10:34; Start 10/30/19 at 10:00; Stop 10/30/19 at 11:59; Status DC Sodium Chloride 90 meq/Potassium Chloride 30 meq/ Potassium Acetate 30 meq/M agnesium Sulfate 15 meq/ Multivitamins 10 ml/Chromium/ Copper/Manganese/ Seleni/Zn 1 ml/ Insulin Human Regular 15 unit/ Total Parenteral Nutrition/Amino Acids/Dextrose/ Fat Emulsion Intravenous 1,680 ml @ 70 mls/hr TPN CONT IV Last administered on 10/30/19at 22:02; Start 10/30/19 at 22:00; Stop 10/31/19 at 21:59; Status DC Diphenhydramine HCl (Benadryl) 25 mg 1X ONCE IVP Last administered on 10/30/19at 14:26; Start 10/30/19 at 14:30; Stop 10/30/19 at 14:31; Status DC Vancomycin HCl 1.5 gm/Sodium Chloride 500 ml @ 250 mls/hr Q8H IV Last administered on 10/31/19at 03:08; Start 10/30/19 at 18:30; Stop 10/31/19 at 12:24; Status DC Vancomycin HCl (Vancomycin Trough Level) 1 each 1X ONCE MC Last administered on 10/31/19at 10:00; Start 10/31/19 at 10:00; Stop 10/31/19 at 10:01; Status DC Sodium Chloride 90 meq/Potassium Chloride 30 meq/ Potassium Acetate 30 meq/Magnesium Sulfate 15 meq/ Multivitamins 10 ml/Chromium/ Copper/Manganese/ Seleni/Zn 1 ml/ Insulin Human Regular 15 unit/ Total Parenteral Nutrition/Amino Acids/Dextrose/ Fat Emulsion Intravenous 1,680 ml @ 70 mls/hr TPN CONT IV Last administered on 10/31/19at 22:13; Start 10/31/19 at 22:00; Stop 11/01/19 at 21:59; Status DC Vancomycin HCl (Vancomycin Random Level) 1 each 1X ONCE MC Last administered on 11/01/19at 01:00; Start 11/01/19 at 01:00; Stop 11/01/19 at 01:01; Status DC Vancomycin HCl 1.5 gm/Sodium Chloride 500 ml @ 250 mls/hr Q12H IV Last administered on 11/01/19at 22:07; Start 11/01/19 at 10:00; Stop 11/02/19 at 07:41; Status DC Vancomycin HCl (Vancomycin Trough Level) 1 each 1X ONCE MC ; Start 11/02/19 at 09:30; Stop 11/02/19 at 09:31; Status Cancel Sodium Chloride 90 meq/Potassium Chloride 30 meq/ Potassium Acetate 30 meq/Magnesium Sulfate 15 meq/ Multivitamins 10 ml/Chromium/ Copper/Manganese/ Seleni/Zn 1 ml/ Insulin Human Regular 15 unit/ Total Parenteral Nutrition/Amino Acids/Dextrose/ Fat Emulsion Intravenous 1,680 ml @ 70 mls/hr TPN CONT IV Last administered on 11/01/19at 22:08; Start 11/01/19 at 22:00; Stop 11/02/19 at 21:59; Status DC Alteplase, Recombinant (Cathflo For Central Catheter Clearance) 1 mg 1X ONCE INT CAT Last administered on 11/01/19at 11:49; Start 11/01/19 at 11:00; Stop 11/01/19 at 11:01; Status DC Daptomycin 500 mg/ Sodium Chloride 50 ml @ 100 mls/hr Q24H IV Last administered on 11/04/19at 08:23; Start 11/02/19 at 09:00 Sodium Chloride 90 meq/Potassium Chloride 30 meq/ Potassium Acetate 30 meq/Magnesium Sulfate 15 meq/ Multivitamins 10 ml/Chromium/ Copper/Manganese/ Seleni/Zn 1 ml/ Insulin Human Regular 15 unit/ Total Parenteral Nutrition/Amino Acids/Dextrose/ Fat Emulsion Intravenous 1,680 ml @ 70 mls/hr TPN CONT IV Last administered on 11/02/19at 22:55; Start 11/02/19 at 22:00; Stop 11/03/19 at 21:59; Status DC Sodium Chloride 90 meq/Potassium Chloride 30 meq/ Potassium Acetate 30 meq/Magnesium Sulfate 15 meq/ Multivitamins 10 ml/Chromium/ Copper/Manganese/ Seleni/Zn 1 ml/ Insulin Human Regular 15 unit/ Total Parenteral Nutrition/Amino Acids/Dextrose/ Fat Emulsion Intravenous 1,680 ml @ 70 mls/hr TPN CONT IV Last administered on 11/03/19at 22:06; Start 11/03/19 at 22:00; Stop 11/04/19 at 21:59 Diphenhydramine HCl (Benadryl) 50 mg STK-MED ONCE .ROUTE ; Start 11/03/19 at 18:34; Stop 11/03/19 at 18:35; Status DC Diphenhydramine HCl (Benadryl) 25 mg 1X ONCE IM ; Start 11/03/19 at 18:45; Stop 11/03/19 at 18:46; Status DC Diphenhydramine HCl (Benadryl) 25 mg 1X ONCE IVP Last administered on 11/03/19at 18:56; Start 11/03/19 at 19:00; Stop 11/03/19 at 19:01; Status DC Alprazolam (Xanax) 0.5 mg PRN TID PRN PO ANXIETY / AGITATION Last administered on 11/04/19at 08:24; Start 11/04/19 at 08:00 Active Scripts Active Reported Bisoprolol Fumarate 5 Mg Tablet 10 Mg PO DAILY Vitals/I & O Vital Sign - Last 24 Hours 11/03/19 11/03/19 11/03/19 11/03/19 11:00 11:46 12:00 12:00 Temp 99.0 99.0 Pulse 111 113 Resp 30 30 B/P (MAP) 161/101 (121) 168/96 (120) Pulse Ox 96 97 100 O2 Delivery Tracheal Collar Tracheal Collar Tracheal Collar Trach Collar O2 Flow Rate 8.0 8.0 11/03/19 11/03/19 11/03/19 11/03/19 12:27 13:00 14:00 15:00 Pulse 112 114 130 Resp 30 30 30 B/P (MAP) 158/98 (118) 153/96 (115) Pulse Ox 100 96 100 100 O2 Delivery Tracheal Collar Tracheal Collar Tracheal Collar O2 Flow Rate 8.0 11/03/19 11/03/19 11/03/19 11/03/19 15:48 16:00 16:00 17:00 Temp 98.9 98.9 Pulse 116 122 Resp 30 30 B/P (MAP) 174/100 (124) 164/94 (117) Pulse Ox 93 100 100 O2 Delivery Tracheal Collar Trach Collar Tracheal Collar Tracheal Collar O2 Flow Rate 8.0 8.0 11/03/19 11/03/19 11/03/19 11/03/19 18:00 19:00 19:00 19:30 Pulse 118 114 112 Resp 30 34 30 B/P (MAP) 151/95 (113) 151/95 (113) 157/97 (117) Pulse Ox 100 98 100 100 O2 Delivery Tracheal Collar Tracheal Collar Tracheal Collar Tracheal Collar O2 Flow Rate 8.0 11/03/19 11/03/19 11/03/19 11/03/19 20:00 20:00 21:00 22:00 Temp 99.0 99.0 Pulse 120 122 121 Resp 34 29 25 B/P (MAP) 175/108 (130) 152/88 (109) 144/80 (101) Pulse Ox 100 99 95 O2 Delivery Tracheal Collar Trach Collar Tracheal Collar Tracheal Collar O2 Flow Rate 8.0 11/03/19 11/04/19 11/04/19 11/04/19 23:00 00:00 00:00 01:00 Temp 98.3 98.3 Pulse 119 119 118 Resp 26 28 25 B/P (MAP) 134/80 (98) 137/77 (97) 136/72 (93) Pulse Ox 96 96 99 O2 Delivery Tracheal Collar Trach Collar Tracheal Collar Tracheal Collar O2 Flow Rate 8.0 11/04/19 11/04/19 11/04/19 11/04/19 02:00 03:00 04:00 04:00 Temp 99.2 99.2 Pulse 120 127 119 Resp 26 39 28 B/P (MAP) 140/84 (102) 146/91 (109) 137/78 (97) Pulse Ox 95 99 97 O2 Delivery Tracheal Collar Tracheal Collar Trach Collar Tracheal Collar O2 Flow Rate 8.0 11/04/19 11/04/19 11/04/19 11/04/19 05:00 06:00 07:00 07:34 Pulse 119 114 120 Resp 28 26 30 B/P (MAP) 151/86 (107) 155/81 (105) 151/87 (108) Pulse Ox 97 100 99 98 O2 Delivery Tracheal Collar Tracheal Collar Tracheal Collar Tracheal Collar O2 Flow Rate 8.0 11/04/19 11/04/19 11/04/19 11/04/19 08:00 08:00 09:00 10:00 Temp 98.5 98.5 Pulse 120 120 120 Resp 41 30 30 B/P (MAP) 161/90 (113) 177/99 (125) 152/97 (115) Pulse Ox 99 99 99 O2 Delivery Tracheal Collar Trach Collar Tracheal Collar Tracheal Collar O2 Flow Rate 8.0 Intake and Output 11/03/19 11/03/19 11/04/19 15:00 23:00 07:00 Intake Total 200 ml 1110 ml Output Total 405 ml 1565 ml 1560 ml Balance -405 ml -1365 ml -450 ml Justicifation of Admission Dx: Justifications for Admission: Justification of Admission Dx: Yes ROSS DIAS MD Nov 04, 2019 10:42
--- NOTE | 2019-11-04 12:44 | PDOC ---
Objective: Vital Signs: Vital Signs Date Time Temp Pulse Resp B/P (MAP) Pulse Ox O2 Delivery O2 Flow Rate FiO2 11/04/19 12:13 98 8.0 11/04/19 12:00 Trach Collar 11/04/19 10:00 120 30 152/97 (115) 11/04/19 08:00 98.5 98.5 Labs: Laboratory Tests Test 11/03/19 17:27 11/04/19 00:12 11/04/19 05:30 11/04/19 05:36 Glucose (Fingerstick) 136 mg/dL 119 mg/dL 139 mg/dL White Blood Count 9.9 x10^3/uL Red Blood Count 2.53 x10^6/uL Hemoglobin 7.2 g/dL Hematocrit 21.8 % Mean Corpuscular Volume 86 fL Mean Corpuscular Hemoglobin 29 pg Mean Corpuscular Hemoglobin Concent 33 g/dL Red Cell Distribution Width 15.2 % Platelet Count 625 x10^3/uL Neutrophils (%) (Auto) 69 % Lymphocytes (%) (Auto) 12 % Monocytes (%) (Auto) 16 % Eosinophils (%) (Auto) 3 % Basophils (%) (Auto) 1 % Neutrophils # (Auto) 6.9 x10^3/uL Lymphocytes # (Auto) 1.2 x10^3/uL Monocytes # (Auto) 1.6 x10^3/uL Eosinophils # (Auto) 0.3 x10^3/uL Basophils # (Auto) 0.0 x10^3/uL Sodium Level 135 mmol/L Potassium Level 4.1 mmol/L Chloride Level 101 mmol/L Carbon Dioxide Level 29 mmol/L Anion Gap 5 Blood Urea Nitrogen 10 mg/dL Creatinine 0.6 mg/dL Estimated GFR (Cockcroft-Gault) 106.3 Glucose Level 137 mg/dL Calcium Level 9.1 mg/dL Test 11/04/19 12:14 Glucose (Fingerstick) 138 mg/dL BLOOD CULTURE Preliminary NO GROWTH AFTER 2 DAYS PE: GEN: chronically ill, up in chair, RT and nurse present LUNGS: trach collar - suctioned HEART: tachycardic NEURO/PSYCH: awake A/P: S/p pancreatic necrosectomy -- Continue support. Justicifation of Admission Dx: Justifications for Admission: Justification of Admission Dx: Yes CYNDEE FALCON Nov 04, 2019 12:44
--- NOTE | 2019-11-04 13:37 | NUR ---
SS following up with discharge planning. SS reviewed pt chart and discussed with pt RN. No new changes as of today. Pt remains on trach collar and TPN. Pt on IV Cipro, Daptomycin, Micafungin, and Meropenem. Pt has chest tube and J tube. Pt has KAYLIN drains x3 and 2 Mook drains. Pt self pay. SS contacted [facility], [facility], and [facility] and was notified that they are not taking self pay pt's at this time. SS will continue to follow for discharge planning.
[2019-11-04] MEDS: IV NORMAL SALINE 1000ML BAG 1,000 ML IV SCH (14:33)
--- NOTE | 2019-11-04 15:31 | NUR ---
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, 8 inches Weight: 92.5 kg Current diet: NPO LABS: Sodium: 135 Potassium: 4.1 Chloride: 101 Calcium: 9.1 Corrected Calcium: 11.42 Magnesium: 2.1 CO2: 29 SCr: 0.5 Glucose: 139 Albumin: 1.1 AST: 25 ALT: 37 TPN FORMULA: TPN TYPE: Central Continuous AMINO ACIDS: 85 gm DEXTROSE: 250 gm LIPIDS: 20 gm SODIUM CHLORIDE: 110 mEq SODIUM ACETATE: - mEq SODIUM PHOSPHATE: - mmol POTASSIUM CHLORIDE: 30 mEq POTASSIUM ACETATE: 30 mEq POTASSIUM PHOSPHATE: - mmol MAGNESIUM: 15 mEq CALCIUM: - mEq INSULIN: 15 units MULTIPLE VITAMIN: 10 ml TRACE ELEMENTS: 1 ml ml(s) TPN PLAN: CONT TF AND TPN. UP NACL TO 110 MEQ IN TPN. R: TPN AT SAME RATE Will monitor electrolytes, glucose, and tolerance to TPN. KRISTIAN APODACA [facility], 11/04/19 1530
[2019-11-04] MEDS ORDERED: AMINO ACID IV SCH ×10 (22:00)
[2019-11-04] MEDS ORDERED: DEXTROSE 70% IV SCH ×10 (22:00)
[2019-11-04] MEDS ORDERED: [UNRECOGNIZED DRUG - OTHER] IV SCH ×10 (22:00)
[2019-11-04] MEDS ORDERED: TOTAL PARENTERAL NUTRITION IV SCH ×10 (22:00)
[2019-11-05] VITALS (23 sets, daily range): BP systolic 115–175; BP diastolic 55–104
[2019-11-05] MEDS: MEROPENEM 500 MG in IV NORMAL SALINE 50ML 50 ML IV SCH ×6 (00:07→23:52)
[2019-11-05] MEDS: IPRATRPIUM/ALBUTEROL 0.5/2.5MG 3 ML NEBU. NEB SCH ×6 (04:12→20:25)
[2019-11-05] MEDS: INSULIN LISPRO 300 UNITS/3 ML VIAL. SQ SCH ×4 (06:00→17:49)
[2019-11-05 06:05] LABS: BASO # 0.1 x10^3/uL (0.0-0.2); BASO % 1 % (0-3); EOS # 0.5 x10^3/uL (0.0-0.7); EOS % 4 % (0-3); HEMATOCRIT 23.9 % (36.0-47.0); HEMOGLOBIN 7.8 g/dL (12.0-15.5); LYMPH # 1.5 x10^3/uL (1.0-4.8); LYMPH % 12 % (24-48); MEAN CORPUSCULAR HEMOGLOBIN 28 pg (25-35); MEAN CORPUSCULAR HGB CONC 33 g/dL (31-37); MEAN CORPUSCULAR VOLUME 86 fL (79-100); MONO # 1.6 x10^3/uL (0.0-1.1); MONO % 13 % (0-9); NEUT # 8.6 x10^3/uL (1.8-7.7); NEUT % 70 % (31-73); PLATELET COUNT 666 x10^3/uL (140-400); RED BLOOD COUNT 2.77 x10^6/uL (3.50-5.40); RED CELL DISTRIBUTION WIDTH 15.2 % (11.5-14.5); WHITE BLOOD COUNT 12.2 x10^3/uL (4.0-11.0)
[2019-11-05 06:25] LABS: CALCIUM 9.5 mg/dL (8.5-10.1); CREATININE 0.6 mg/dL (0.6-1.0); GFR 106.3; POTASSIUM 4.2 mmol/L (3.5-5.1)
--- NOTE | 2019-11-05 06:42 | PDOC ---
PULMONARY PROGRESS NOTES Subjective on trach shield 35%, has cough, is tired, appears comfortable Vitals Vital Signs Date Time Temp Pulse Resp B/P (MAP) Pulse Ox O2 Delivery O2 Flow Rate FiO2 11/05/19 06:00 113 24 135/93 (107) 97 Tracheal Collar 11/05/19 05:00 98.5 98.5 11/05/19 04:12 8.0 ROS: No Nausea, No Chest Pain, No Increase Cough General: Alert HEENT: Other (trach site ok) Lungs: Crackles, Other (l ct) Cardiovascular: S1, S2 Abdomen: Soft, Non-tender, Other (multiple KAYLIN drains ) Neuro Exam: Alert Extremities: Other (+1 BLE edema) Skin: Warm Labs Laboratory Tests Test 11/03/19 17:27 11/04/19 00:12 11/04/19 05:30 11/04/19 05:36 Glucose (Fingerstick) 136 mg/dL (70-99) 119 mg/dL (70-99) 139 mg/dL (70-99) White Blood Count 9.9 x10^3/uL (4.0-11.0) Red Blood Count 2.53 x10^6/uL (3.50-5.40) Hemoglobin 7.2 g/dL (12.0-15.5) Hematocrit 21.8 % (36.0-47.0) Mean Corpuscular Volume 86 fL (79-100) Mean Corpuscular Hemoglobin 29 pg (25-35) Mean Corpuscular Hemoglobin Concent 33 g/dL (31-37) Red Cell Distribution Width 15.2 % (11.5-14.5) Platelet Count 625 x10^3/uL (140-400) Neutrophils (%) (Auto) 69 % (31-73) Lymphocytes (%) (Auto) 12 % (24-48) Monocytes (%) (Auto) 16 % (0-9) Eosinophils (%) (Auto) 3 % (0-3) Basophils (%) (Auto) 1 % (0-3) Neutrophils # (Auto) 6.9 x10^3/uL (1.8-7.7) Lymphocytes # (Auto) 1.2 x10^3/uL (1.0-4.8) Monocytes # (Auto) 1.6 x10^3/uL (0.0-1.1) Eosinophils # (Auto) 0.3 x10^3/uL (0.0-0.7) Basophils # (Auto) 0.0 x10^3/uL (0.0-0.2) Sodium Level 135 mmol/L (136-145) Potassium Level 4.1 mmol/L (3.5-5.1) Chloride Level 101 mmol/L (98-107) Carbon Dioxide Level 29 mmol/L (21-32) Anion Gap 5 (6-14) Blood Urea Nitrogen 10 mg/dL (7-20) Creatinine 0.6 mg/dL (0.6-1.0) Estimated GFR (Cockcroft-Gault) 106.3 Glucose Level 137 mg/dL (70-99) Calcium Level 9.1 mg/dL (8.5-10.1) Test 11/04/19 12:14 11/04/19 17:57 11/05/19 05:45 Glucose (Fingerstick) 138 mg/dL (70-99) 130 mg/dL (70-99) White Blood Count 12.2 x10^3/uL (4.0-11.0) Red Blood Count 2.77 x10^6/uL (3.50-5.40) Hemoglobin 7.8 g/dL (12.0-15.5) Hematocrit 23.9 % (36.0-47.0) Mean Corpuscular Volume 86 fL (79-100) Mean Corpuscular Hemoglobin 28 pg (25-35) Mean Corpuscular Hemoglobin Concent 33 g/dL (31-37) Red Cell Distribution Width 15.2 % (11.5-14.5) Platelet Count 666 x10^3/uL (140-400) Neutrophils (%) (Auto) 70 % (31-73) Lymphocytes (%) (Auto) 12 % (24-48) Monocytes (%) (Auto) 13 % (0-9) Eosinophils (%) (Auto) 4 % (0-3) Basophils (%) (Auto) 1 % (0-3) Neutrophils # (Auto) 8.6 x10^3/uL (1.8-7.7) Lymphocytes # (Auto) 1.5 x10^3/uL (1.0-4.8) Monocytes # (Auto) 1.6 x10^3/uL (0.0-1.1) Eosinophils # (Auto) 0.5 x10^3/uL (0.0-0.7) Basophils # (Auto) 0.1 x10^3/uL (0.0-0.2) Sodium Level 134 mmol/L (136-145) Potassium Level 4.2 mmol/L (3.5-5.1) Chloride Level 101 mmol/L (98-107) Carbon Dioxide Level 30 mmol/L (21-32) Anion Gap 3 (6-14) Blood Urea Nitrogen 11 mg/dL (7-20) Creatinine 0.6 mg/dL (0.6-1.0) Estimated GFR (Cockcroft-Gault) 106.3 Glucose Level 138 mg/dL (70-99) Calcium Level 9.5 mg/dL (8.5-10.1) Laboratory Tests Test 11/04/19 12:14 11/04/19 17:57 11/05/19 05:45 Glucose (Fingerstick) 138 mg/dL (70-99) 130 mg/dL (70-99) White Blood Count 12.2 x10^3/uL (4.0-11.0) Red Blood Count 2.77 x10^6/uL (3.50-5.40) Hemoglobin 7.8 g/dL (12.0-15.5) Hematocrit 23.9 % (36.0-47.0) Mean Corpuscular Volume 86 fL (79-100) Mean Corpuscular Hemoglobin 28 pg (25-35) Mean Corpuscular Hemoglobin Concent 33 g/dL (31-37) Red Cell Distribution Width 15.2 % (11.5-14.5) Platelet Count 666 x10^3/uL (140-400) Neutrophils (%) (Auto) 70 % (31-73) Lymphocytes (%) (Auto) 12 % (24-48) Monocytes (%) (Auto) 13 % (0-9) Eosinophils (%) (Auto) 4 % (0-3) Basophils (%) (Auto) 1 % (0-3) Neutrophils # (Auto) 8.6 x10^3/uL (1.8-7.7) Lymphocytes # (Auto) 1.5 x10^3/uL (1.0-4.8) Monocytes # (Auto) 1.6 x10^3/uL (0.0-1.1) Eosinophils # (Auto) 0.5 x10^3/uL (0.0-0.7) Basophils # (Auto) 0.1 x10^3/uL (0.0-0.2) Sodium Level 134 mmol/L (136-145) Potassium Level 4.2 mmol/L (3.5-5.1) Chloride Level 101 mmol/L (98-107) Carbon Dioxide Level 30 mmol/L (21-32) Anion Gap 3 (6-14) Blood Urea Nitrogen 11 mg/dL (7-20) Creatinine 0.6 mg/dL (0.6-1.0) Estimated GFR (Cockcroft-Gault) 106.3 Glucose Level 138 mg/dL (70-99) Calcium Level 9.5 mg/dL (8.5-10.1) Medications Active Scripts Medications Dose Route/Sig Max Daily Dose Days Date Category Bisoprolol Fumarate 5 Mg Tablet 10 Mg PO DAILY 07/04/19 Reported Comments cxr 10/30, reviewed, b ll infilt effusion atelectasis ct reviewed 10/30/19, Decreased left-sided effusion after catheter placement. The right-sided effusion has increased as has atelectasis. There has been exchange or placement of multiple drainage tubes and a gastrojejunostomy tube. Both collections are smaller. No significant new abdominal fluid collection is seen. The jejunal component of the gastrojejunostomy tube appears to be looped in the proximal small bowel. ct abdomen /pelvis 09/23 1. Removal of the percutaneous pigtail drainage catheters since the prior exam. Sequela of pancreatitis with extensive pseudocysts again demonstrated, the right-sided collections are slightly larger since the prior exam, the left-sided collections are stable. See above. 2. Moderate to large left pleural effusion with atelectasis and collapse of most of the left lower lobe, stable. Small right pleural effusion is stable. 3. Gallstone. ct chest 10/02 reviewed GRAM NEG COCCOBACILLI:MANY SQUAMOUS EPI CELL:RARE PMN (WBCs):FEW Unless otherwise specified, Testing Performed by: [facility] [address] [place] [address] For Inquires, the Physician may contact the Microbiology department at [phone] RESPIRATORY CULTURE Final Final MANY GRAM NEGATIVE RODS on 10/03/19 at 1107 FINAL ID= [PSEUDOMONAS AERUGINOSA] MICRO CHARGES PSEUDOMONAS AERUGINOSA ANTIMICROBIAL SUSCEPTIBILITY Final Comment NEG ALEXANDRA 56 PSEUDOMONAS AERUGINOSA ANTIBIOTIC RESULT INTERPRETATION AMIKACIN <=16 S AZTREONAM <=4 S CEFTAZIDIME <=1 S CIPROFLOXACIN <=0.25 S CEFEPIME <=2 S CEFTAZIDIME/AVIBACTAM <=4 S GENTAMICIN <=2 S LEVOFLOXACIN <=0.5 S Impression . IMPRESSION: 1. Acute hypoxemic respiratory failure secondary to ARDS status post trach, developed anemia 09/24, blood drainage from RLQ abdomen drain site, and surrounding firmness / developed septic shock 09/24 from abdomen source, required levo / s/p 3 new drains 09/24 with brown color drainage, 2. Gallstone pancreatitis, now with ongoing bleeding from prior drain. Anemic. s/p Tx multiple units over several days 3. septic shock/sepsis, recurrent 09/24, source abdomen. new fever ? aspiration pneumonitis/pneumonia 4. Acute kidney injury-, Off HD--renal function decling. suspect JUANA on CKD due to hypotension , improved now 5. Acute gallstone pancreatitis. 6. Hypoalbuminemia. 7. Moderate persistent effusions, s/p left thora 08/29, reaccumulation of left effusion. O2 requirement not changed. 8. Fever- ,hypotension. suspect recurrent sepsis/ likely pancreatic source. Per ID, per surgery-- 9. Chronic anemia-- ongoing / s/p PRBC 10. Covid 19 testing negative 11. Moderate to large ascites-S/P paracentisis 12.S/P paracentisis with 4 liters removed on 08/03/19 13. S/P IR drain placement on 08/26/2019, removal, re inserted 09/24 14. Depression/Anxiety 15., Fever, per ID 16. Status post chest tube placement, not much drainage 10/17 S/P Exploratory laparotomy, lysis of adhesions, subtotal cholecystectomy with cholangiogram, gastrojejunostomy tube placement, pancreatic necrosectomy leukocytosis- improving Plan . Chest tube continues to drain Continue current support, monitor H&H, afebrile Trach shield Up to chair, pt/ot Follow culture Follow surgery input DVT GI prophylaxis ABX per ID f/u BC /resp cultures Continue TPN for nutrition support DVT/GI PPX D/W RN and RT, TEN WHITFIELD MD Nov 05, 2019 06:42
--- NOTE | 2019-11-05 07:54 | PDOC ---
Infectious Disease Note Subjective Subjective No fevers last 24 hrs FiO2 35% trach shield TPN ROS ROS unobtainable Vital Sign Vital Signs Vital Signs Date Time Temp Pulse Resp B/P (MAP) Pulse Ox O2 Delivery O2 Flow Rate FiO2 11/05/19 06:00 113 24 135/93 (107) 97 Tracheal Collar 11/05/19 05:00 98.5 98.5 11/05/19 04:12 8.0 Physical Exam PHYSICAL EXAM GENERAL: Propped up in bed, awake, weak appearing HEENT: Pupils equal, oral cavity dry. NGT out, NECK: Tracheostomy LUNGS: Diminished aeration bases, CT on left HEART: S1, S2, regular ABDOMEN: Sightly less distended, bowel sounds hypoactive, soft, goyal x 2, 3 KAYLIN drains, G-J tube and + wound vac : Lind in place EXTREMITIES: Less generalized edema, no cyanosis. Podus boots bilaterally, SKIN: warm touch. No signs of rash. NEURO: Awake, not responding to questons LUE-PICC without signs of complications Labs Lab Laboratory Tests Test 11/04/19 12:14 11/04/19 17:57 11/05/19 05:45 Glucose (Fingerstick) 138 mg/dL (70-99) 130 mg/dL (70-99) White Blood Count 12.2 x10^3/uL (4.0-11.0) Red Blood Count 2.77 x10^6/uL (3.50-5.40) Hemoglobin 7.8 g/dL (12.0-15.5) Hematocrit 23.9 % (36.0-47.0) Mean Corpuscular Volume 86 fL (79-100) Mean Corpuscular Hemoglobin 28 pg (25-35) Mean Corpuscular Hemoglobin Concent 33 g/dL (31-37) Red Cell Distribution Width 15.2 % (11.5-14.5) Platelet Count 666 x10^3/uL (140-400) Neutrophils (%) (Auto) 70 % (31-73) Lymphocytes (%) (Auto) 12 % (24-48) Monocytes (%) (Auto) 13 % (0-9) Eosinophils (%) (Auto) 4 % (0-3) Basophils (%) (Auto) 1 % (0-3) Neutrophils # (Auto) 8.6 x10^3/uL (1.8-7.7) Lymphocytes # (Auto) 1.5 x10^3/uL (1.0-4.8) Monocytes # (Auto) 1.6 x10^3/uL (0.0-1.1) Eosinophils # (Auto) 0.5 x10^3/uL (0.0-0.7) Basophils # (Auto) 0.1 x10^3/uL (0.0-0.2) Sodium Level 134 mmol/L (136-145) Potassium Level 4.2 mmol/L (3.5-5.1) Chloride Level 101 mmol/L (98-107) Carbon Dioxide Level 30 mmol/L (21-32) Anion Gap 3 (6-14) Blood Urea Nitrogen 11 mg/dL (7-20) Creatinine 0.6 mg/dL (0.6-1.0) Estimated GFR (Cockcroft-Gault) 106.3 Glucose Level 138 mg/dL (70-99) Calcium Level 9.5 mg/dL (8.5-10.1) Micro 10/15. BLOOD CULTURE Preliminary NO GROWTH AFTER 5 DAYS 10/17. GRAM STAIN Final Final SQUAMOUS EPI CELL:RARE PMN (WBCs):FEW YEAST:FEW ANAEROBIC-AEROBIC CULTURE Preliminary Preliminary ANAEROBIC-AEROBIC CULTURE Preliminary Preliminary MANY YEAST on 10/21/19 at 1354 FINAL ID= [DEVYN PARAPSILOSIS] FEW FINAL ID= [PSEUDOMONAS AERUGINOSA] DEVYN PARAPSILOSIS PSEUDOMONAS AERUGINOSA Objective Assessment Patient with prolonged hospitalization more than 3 months Multiple medical problems Multiple surgical procedures S/P Exp. 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 parapsilosis & PSAE (I-merrem/ceftazidime/AZT/cefepime) Leucocytosis -trending upward Fever Acute gallstone pancreatitis with persistent necrosis - 07/27. CT A/P Increased ascites. 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 status post KAYLIN drain placement; C. parapsilosis. s/p drain 08/23 + yeast & high amylase; s/p additional drain on 08/25. Drains removed. -08/23. fluid devyn parapsilosis fluid, amylase high - 09/23 showed multiple pseudocysts, slight larger on the right. s/p drains x 3, 09/24. + PSAE (MDRO-R Cefepime, Zosyn ALEXANDRA < 64) and yeast, -09/24 s/p drain replacement x 3; fluid cult PSAE (MDRO), yeast; treated -10/29 CT A/P shows smaller fluid collections. Ascites s/p paracentesis 08/02 & 08/23. C. parapsilosis Cholelithiasis with thickening of the gallbladder wall. JUANA, Hyperkalemia, Metabolic acidosis off dialysis Acute hypoxic resp failure. trach/vent. sputum 09/30 + PSAE (I merrem). Repeat sputum on 10/29 + CRE PSA Pleural effusions s/p left thoracentesis, 08/29. no culture. s/p left chest tube, 10/02 no growth Hypocalcemia Prediabetes HTN Anemia s/p PRBCs Plan Plan of Care Meropenem, cipro (10/29), micafungin and dapto BC from 10/29 negto date Monitor WBC/temp Wound care /drain management as directed Contact isolation for CRE/MDRO D/w nursing Critically ill senior living prognosis poor Attending Co-Sign The patient was seen and interviewed as well as examined at the bedside. The chart was reviewed. The case was discussed. Agree with the plan of care. FRANCA HOBSON APRN Nov 05, 2019 07:54 KIMMY JONES MD Nov 05, 2019 13:01
[2019-11-05] MEDS: ACETYLCYSTEINE 20% for RESP TX 600 MG/3 ML. NEB SCH ×2 (08:00→20:25)
[2019-11-05] MEDS: DAPTOmycin (GENERIC) IVPB 500 MG in IV NORMAL SALINE 50ML 50 ML IV SCH (09:33)
[2019-11-05] MEDS: ALPRAZolam 0.5 MG TABLET PO PRN ×2 (09:34→17:22)
[2019-11-05] MEDS: PANTOPRAZOLE IV PUSH 40 MG VIAL. IVP SCH (09:35)
[2019-11-05] MEDS: ENOXAPARIN 40 MG/0.4 ML SYRINGE. SQ SCH (09:35)
[2019-11-05] MEDS: CIPROFLOXACIN 400MG PREMIX 200 ML IV SCH ×2 (09:37→21:07)
[2019-11-05] MEDS: MICAFUNGIN 100 MG in IV DEXTROSE 5% 100ML 100 ML IV SCH (09:37)
--- NOTE | 2019-11-05 10:13 | PDOC ---
PROGRESS NOTES Chief Complaint Chief Complaint A/P Acute hypoxic Respiratory failure required mechanical ventilation Tracheostomy bilateral pleural effusions/pulm edema s/p Throacentesis on 10/03/2019 Severe Acute gallstone pancreatitis (not a surgical candidate at this time) with necrosis Acute kidney failure now requiring dialysis Gallstones (Calculus of gallbladder with acute cholecystitis without obstruction) HTN Intractable pain Intractable nausea Covid 19 negative. Acute on chronic anemia EEG: No seizure activity Fever - intermittent ? Ileus with vomiting Abd distention - U/S and CT reviewed s/p 0.4 L of opaque, debris-containing ascites was removed 08/23 Acute pancreatitis with persistent necrosis Gallstone pancreatitis with necrosis. -CT A/P 09/23 showed multiple pseudocysts, slight larger on the right. s/p drains x 3, 09/24. + PSAE (MDRO-R Cefepime, Zosyn ALEXANDRA < 64) and yeast, -s/p drain 08/14. C. parapsilosis. s/p drain 08/23 + yeast & high amylase; s/p additional drain on 08/25. Drains removed. Ascites s/p paracentesis 08/02 & 08/23. C. parapsilosis JUANA. off HD. A large fluid collection in the pancreatic bed has slightly decreased in size, described below, the pancreas itself is difficult to visualize, which could be due to necrosis or obscuration of pancreatic parenchyma from the surrounding fluid collection.10/02 - 08/14 status post KAYLIN drain placement + C paropsilosis. s/p additional drains 08/25 Anemia - S/p PRBCs. Cholelithiasis with thickening of the gallbladder wall. Leucocytosis improving JUANA, hyperkalemia, Metabolic acidosis off dialysis hypocalcemia Prediabetes HTN s/p trach Hyperglycemia severe protein-caloric malnutrition Moderate to large left pleural effusion with atelectasis and collapse of most of the left lower lobe, stable Dispo - ICU, critically ill Chest tube draining TPN per nutrition follow cultures. meropenam, cipro, micafungin per ID Continue trach shield ID, gen sx, GI, pulm following DVT GI prophylaxis Continue TPN for nutrition support poor prognosis follow labs xanax for anxiety prn History of Present Illness History of Present Illness [id number]% via trach shield. no fevers. Vitals Vitals Vital Signs Date Time Temp Pulse Resp B/P (MAP) Pulse Ox O2 Delivery O2 Flow Rate FiO2 11/05/19 08:53 98 Tracheal Collar 8.0 11/05/19 06:00 113 24 135/93 (107) 11/05/19 05:00 98.5 98.5 Physical Exam Physical Exam GENERAL: Propped up in bed, awake, weak appearing HEENT: Pupils equal, oral cavity dry. NGT out, NECK: Tracheostomy LUNGS: Diminished aeration bases, CT on left HEART: S1, S2, regular ABDOMEN: Sightly less distended, bowel sounds hypoactive, soft, goyal x 2, 3 KAYLIN drains, G-J tube and + wound vac : Lind in place EXTREMITIES: Less generalized edema, no cyanosis. Podus boots bilaterally, SKIN: warm touch. No signs of rash. NEURO: Awake, not responding to questons LUE-PICC without signs of complications General: Alert, Cooperative (place) Heart: Regular rate (SR/ST), Other (distant heart sounds) Lungs: Crackles Abdomen: Soft, Other (mulitple drains, lower sump drain migrated out) Extremities: Other (Diffuse edema) Skin: No rashes, No significant lesion Labs LABS Laboratory Tests Test 11/04/19 12:14 11/04/19 17:57 11/05/19 05:45 Glucose (Fingerstick) 138 mg/dL (70-99) 130 mg/dL (70-99) White Blood Count 12.2 x10^3/uL (4.0-11.0) Red Blood Count 2.77 x10^6/uL (3.50-5.40) Hemoglobin 7.8 g/dL (12.0-15.5) Hematocrit 23.9 % (36.0-47.0) Mean Corpuscular Volume 86 fL (79-100) Mean Corpuscular Hemoglobin 28 pg (25-35) Mean Corpuscular Hemoglobin Concent 33 g/dL (31-37) Red Cell Distribution Width 15.2 % (11.5-14.5) Platelet Count 666 x10^3/uL (140-400) Neutrophils (%) (Auto) 70 % (31-73) Lymphocytes (%) (Auto) 12 % (24-48) Monocytes (%) (Auto) 13 % (0-9) Eosinophils (%) (Auto) 4 % (0-3) Basophils (%) (Auto) 1 % (0-3) Neutrophils # (Auto) 8.6 x10^3/uL (1.8-7.7) Lymphocytes # (Auto) 1.5 x10^3/uL (1.0-4.8) Monocytes # (Auto) 1.6 x10^3/uL (0.0-1.1) Eosinophils # (Auto) 0.5 x10^3/uL (0.0-0.7) Basophils # (Auto) 0.1 x10^3/uL (0.0-0.2) Sodium Level 134 mmol/L (136-145) Potassium Level 4.2 mmol/L (3.5-5.1) Chloride Level 101 mmol/L (98-107) Carbon Dioxide Level 30 mmol/L (21-32) Anion Gap 3 (6-14) Blood Urea Nitrogen 11 mg/dL (7-20) Creatinine 0.6 mg/dL (0.6-1.0) Estimated GFR (Cockcroft-Gault) 106.3 Glucose Level 138 mg/dL (70-99) Calcium Level 9.5 mg/dL (8.5-10.1) Assessment and Plan Assessmemt and Plan Problems Medical Problems: (1) Acute pancreatitis Status: Acute (2) Cholelithiasis Status: Acute Comment Review of Relevant I have reviewed the following items kolby (where applicable) has been applied. Labs Laboratory Tests Test 11/03/19 17:27 11/04/19 00:12 11/04/19 05:30 11/04/19 05:36 Glucose (Fingerstick) 136 mg/dL (70-99) 119 mg/dL (70-99) 139 mg/dL (70-99) White Blood Count 9.9 x10^3/uL (4.0-11.0) Red Blood Count 2.53 x10^6/uL (3.50-5.40) Hemoglobin 7.2 g/dL (12.0-15.5) Hematocrit 21.8 % (36.0-47.0) Mean Corpuscular Volume 86 fL (79-100) Mean Corpuscular Hemoglobin 29 pg (25-35) Mean Corpuscular Hemoglobin Concent 33 g/dL (31-37) Red Cell Distribution Width 15.2 % (11.5-14.5) Platelet Count 625 x10^3/uL (140-400) Neutrophils (%) (Auto) 69 % (31-73) Lymphocytes (%) (Auto) 12 % (24-48) Monocytes (%) (Auto) 16 % (0-9) Eosinophils (%) (Auto) 3 % (0-3) Basophils (%) (Auto) 1 % (0-3) Neutrophils # (Auto) 6.9 x10^3/uL (1.8-7.7) Lymphocytes # (Auto) 1.2 x10^3/uL (1.0-4.8) Monocytes # (Auto) 1.6 x10^3/uL (0.0-1.1) Eosinophils # (Auto) 0.3 x10^3/uL (0.0-0.7) Basophils # (Auto) 0.0 x10^3/uL (0.0-0.2) Sodium Level 135 mmol/L (136-145) Potassium Level 4.1 mmol/L (3.5-5.1) Chloride Level 101 mmol/L (98-107) Carbon Dioxide Level 29 mmol/L (21-32) Anion Gap 5 (6-14) Blood Urea Nitrogen 10 mg/dL (7-20) Creatinine 0.6 mg/dL (0.6-1.0) Estimated GFR (Cockcroft-Gault) 106.3 Glucose Level 137 mg/dL (70-99) Calcium Level 9.1 mg/dL (8.5-10.1) Test 11/04/19 12:14 11/04/19 17:57 11/05/19 05:45 Glucose (Fingerstick) 138 mg/dL (70-99) 130 mg/dL (70-99) White Blood Count 12.2 x10^3/uL (4.0-11.0) Red Blood Count 2.77 x10^6/uL (3.50-5.40) Hemoglobin 7.8 g/dL (12.0-15.5) Hematocrit 23.9 % (36.0-47.0) Mean Corpuscular Volume 86 fL (79-100) Mean Corpuscular Hemoglobin 28 pg (25-35) Mean Corpuscular Hemoglobin Concent 33 g/dL (31-37) Red Cell Distribution Width 15.2 % (11.5-14.5) Platelet Count 666 x10^3/uL (140-400) Neutrophils (%) (Auto) 70 % (31-73) Lymphocytes (%) (Auto) 12 % (24-48) Monocytes (%) (Auto) 13 % (0-9) Eosinophils (%) (Auto) 4 % (0-3) Basophils (%) (Auto) 1 % (0-3) Neutrophils # (Auto) 8.6 x10^3/uL (1.8-7.7) Lymphocytes # (Auto) 1.5 x10^3/uL (1.0-4.8) Monocytes # (Auto) 1.6 x10^3/uL (0.0-1.1) Eosinophils # (Auto) 0.5 x10^3/uL (0.0-0.7) Basophils # (Auto) 0.1 x10^3/uL (0.0-0.2) Sodium Level 134 mmol/L (136-145) Potassium Level 4.2 mmol/L (3.5-5.1) Chloride Level 101 mmol/L (98-107) Carbon Dioxide Level 30 mmol/L (21-32) Anion Gap 3 (6-14) Blood Urea Nitrogen 11 mg/dL (7-20) Creatinine 0.6 mg/dL (0.6-1.0) Estimated GFR (Cockcroft-Gault) 106.3 Glucose Level 138 mg/dL (70-99) Calcium Level 9.5 mg/dL (8.5-10.1) Laboratory Tests Test 11/04/19 12:14 11/04/19 17:57 11/05/19 05:45 Glucose (Fingerstick) 138 mg/dL (70-99) 130 mg/dL (70-99) White Blood Count 12.2 x10^3/uL (4.0-11.0) Red Blood Count 2.77 x10^6/uL (3.50-5.40) Hemoglobin 7.8 g/dL (12.0-15.5) Hematocrit 23.9 % (36.0-47.0) Mean Corpuscular Volume 86 fL (79-100) Mean Corpuscular Hemoglobin 28 pg (25-35) Mean Corpuscular Hemoglobin Concent 33 g/dL (31-37) Red Cell Distribution Width 15.2 % (11.5-14.5) Platelet Count 666 x10^3/uL (140-400) Neutrophils (%) (Auto) 70 % (31-73) Lymphocytes (%) (Auto) 12 % (24-48) Monocytes (%) (Auto) 13 % (0-9) Eosinophils (%) (Auto) 4 % (0-3) Basophils (%) (Auto) 1 % (0-3) Neutrophils # (Auto) 8.6 x10^3/uL (1.8-7.7) Lymphocytes # (Auto) 1.5 x10^3/uL (1.0-4.8) Monocytes # (Auto) 1.6 x10^3/uL (0.0-1.1) Eosinophils # (Auto) 0.5 x10^3/uL (0.0-0.7) Basophils # (Auto) 0.1 x10^3/uL (0.0-0.2) Sodium Level 134 mmol/L (136-145) Potassium Level 4.2 mmol/L (3.5-5.1) Chloride Level 101 mmol/L (98-107) Carbon Dioxide Level 30 mmol/L (21-32) Anion Gap 3 (6-14) Blood Urea Nitrogen 11 mg/dL (7-20) Creatinine 0.6 mg/dL (0.6-1.0) Estimated GFR (Cockcroft-Gault) 106.3 Glucose Level 138 mg/dL (70-99) Calcium Level 9.5 mg/dL (8.5-10.1) Microbiology 11/02/19 Blood Culture - Preliminary, Resulted NO GROWTH AFTER 2 DAYS 10/30/19 Gram Stain Evaluation - Final, Complete 10/30/19 Respiratory Culture - Final, Complete 10/30/19 Antimicrobic Susceptibility - Final, Complete 10/18/19 Gram Stain - Final, Complete 10/18/19 Aerobic and Anaerobic Culture - Final, Complete 10/18/19 Antimicrobic Susceptibility - Final, Complete 10/03/19 Gram Stain - Final, Complete 10/03/19 Aerobic and Anaerobic Culture - Final, Complete 09/25/19 Urine Culture - Final, Complete 09/17/19 Gram Stain - Final, Complete 09/17/19 Aerobic Culture - Final, Complete Medications Current Medications Sodium Chloride 1,000 ml @ 1,000 mls/hr Q1H IV Last administered on 07/04/19at 03:00; Start 07/04/19 at 03:00; Stop 07/04/19 at 03:59; Status DC Ondansetron HCl (Zofran) 4 mg 1X ONCE IVP Last administered on 07/04/19at 03:27; Start 07/04/19 at 03:00; Stop 07/04/19 at 03:01; Status DC Morphine Sulfate (Morphine Sulfate) 4 mg 1X ONCE IV ; Start 07/04/19 at 03:00; Stop 07/04/19 at 03:01; Status Cancel Ketorolac Tromethamine (Toradol 30mg Vial) 30 mg 1X ONCE IV Last administered on 07/04/19at 02:54; Start 07/04/19 at 03:00; Stop 07/04/19 at 03:01; Status DC Fentanyl Citrate (Fentanyl 2ml Vial) 25 mcg 1X ONCE IVP Last administered on 07/04/19at 03:23; Start 07/04/19 at 03:30; Stop 07/04/19 at 03:31; Status DC Fentanyl Citrate (Fentanyl 2ml Vial) 100 mcg STK-MED ONCE .ROUTE ; Start 07/04/19 at 03:18; Stop 07/04/19 at 03:18; Status DC Iohexol (Omnipaque 350 Mg/ml) 90 ml 1X ONCE IV Last administered on 07/04/19at 03:25; Start 07/04/19 at 03:30; Stop 07/04/19 at 03:31; Status DC Info (CONTRAST GIVEN -- Rx MONITORING) 1 each PRN DAILY PRN MC SEE COMMENTS; Start 07/04/19 at 03:30; Stop 07/06/19 at 03:29; Status DC Hydromorphone HCl (Dilaudid) 0.5 mg 1X ONCE IV Last administered on 07/04/19at 03:55; Start 07/04/19 at 04:30; Stop 07/04/19 at 04:32; Status DC Ondansetron HCl (Zofran) 4 mg PRN Q8HRS PRN IV NAUSEA/VOMITING 1ST CHOICE; Start 07/04/19 at 05:00; Stop 07/04/19 at 09:27; Status DC Morphine Sulfate (Morphine Sulfate) 2 mg PRN Q2HR PRN IV SEVERE PAIN 7-10 Last administered on 07/05/19at 12:26; Start 07/04/19 at 05:00; Stop 07/05/19 at 14:15; Status DC Sodium Chloride 1,000 ml @ 125 mls/hr Q8H IV Last administered on 07/04/19at 20:56; Start 07/04/19 at 05:00; Stop 07/05/19 at 04:59; Status DC Hydromorphone HCl (Dilaudid) 0.5 mg PRN Q3HRS PRN IV SEVERE PAIN 7-10 Last administered on 07/05/19at 10:06; Start 07/04/19 at 05:00; Stop 07/05/19 at 12:01; Status DC Piperacillin Sod/ Tazobactam Sod 4.5 gm/Sodium Chloride 100 ml @ 200 mls/hr 1X ONCE IV Last administered on 07/04/19at 05:44; Start 07/04/19 at 06:00; Stop 07/04/19 at 06:29; Status DC Ondansetron HCl (Zofran) 4 mg PRN Q4HRS PRN IV NAUSEA/VOMITING 1ST CHOICE Last administered on 11/03/19at 08:18; Start 07/04/19 at 09:30 Insulin Human Lispro (HumaLOG) 0-9 UNITS Q6HRS SQ Last administered on 10/30/19at 12:43; Start 07/04/19 at 09:30 Dextrose (Dextrose 50%-Water Syringe) 12.5 gm PRN Q15MIN PRN IV SEE COMMENTS; Start 07/04/19 at 09:30 Pantoprazole Sodium (PROTONIX VIAL for IV PUSH) 40 mg DAILYAC IVP Last administered on 11/05/19at 09:35; Start 07/04/19 at 11:30 Prochlorperazine Edisylate (Compazine) 10 mg PRN Q6HRS PRN IV NAUSEA/VOMITING, 2nd CHOICE Last administered on 10/31/19at 20:17; Start 07/04/19 at 17:45 Atenolol (Tenormin) 100 mg DAILY PO ; Start 07/05/19 at 09:00; Stop 07/04/19 at 20:08; Status DC Metoprolol Tartrate (Lopressor Vial) 2.5 mg Q6HRS IVP Last administered on 07/05/19at 05:51; Start 07/04/19 at 20:15; Stop 07/05/19 at 10:02; Status DC Metoprolol Tartrate (Lopressor Vial) 5 mg Q6HRS IVP Last administered on 07/14/19at 00:12; Start 07/05/19 at 10:15; Stop 07/16/19 at 08:48; Status DC Hydromorphone HCl (Dilaudid) 1 mg PRN Q3HRS PRN IV SEVERE PAIN 7-10 Last administered on 07/11/19at 05:13; Start 07/05/19 at 12:00; Stop 07/19/19 at 00:25; Status DC Lidocaine HCl (Buffered Lidocaine 1%) 3 ml STK-MED ONCE .ROUTE ; Start 07/05/19 at 12:55; Stop 07/05/19 at 12:56; Status DC Albumin Human 500 ml @ 125 mls/hr 1X ONCE IV Last administered on 07/05/19at 14:33; Start 07/05/19 at 14:30; Stop 07/05/19 at 18:32; Status DC Norepinephrine Bitartrate 8 mg/ Dextrose 258 ml @ 17.299 mls/ hr CONT PRN IV PER PROTOCOL Last administered on 08/02/19at 12:48; Start 07/05/19 at 15:30; Stop 08/05/19 at 09:19; Status DC Sodium Chloride 1,000 ml @ 125 mls/hr Q8H IV Last administered on 07/05/19at 21:04; Start 07/05/19 at 16:00; Stop 07/06/19 at 02:42; Status DC Albumin Human 500 ml @ 125 mls/hr PRN BID PRN IV After every 2L NSS & BP < 90mm Last administered on 10/18/19at 16:06; Start 07/05/19 at 16:00; Stop 10/21/19 at 09:30; Status DC Iohexol (Omnipaque 300 Mg/ml) 60 ml 1X ONCE IV Last administered on 07/05/19at 17:20; Start 07/05/19 at 17:00; Stop 07/05/19 at 17:01; Status DC Info (CONTRAST GIVEN -- Rx MONITORING) 1 each PRN DAILY PRN MC SEE COMMENTS; Start 07/05/19 at 17:00; Stop 07/07/19 at 16:59; Status DC Meropenem 1 gm/ Sodium Chloride 100 ml @ 200 mls/hr Q8HRS IV Last administered on 07/06/19at 05:45; Start 07/05/19 at 20:00; Stop 07/06/19 at 08:48; Status DC Furosemide (Lasix) 40 mg 1X ONCE IVP Last administered on 07/05/19at 22:12; Start 07/05/19 at 22:30; Stop 07/05/19 at 22:31; Status DC Calcium Chloride 1000 mg/Sodium Chloride 110 ml @ 220 mls/hr 1X ONCE IV Last administered on 07/05/19at 22:11; Start 07/05/19 at 22:30; Stop 07/05/19 at 22:59; Status DC Albuterol Sulfate (Ventolin Neb Soln) 2.5 mg 1X ONCE NEB Last administered on 07/06/19at 00:56; Start 07/05/19 at 22:30; Stop 07/05/19 at 22:31; Status DC Insulin Human Regular (HumuLIN R VIAL) 5 unit 1X ONCE IV Last administered on 07/05/19at 22:14; Start 07/05/19 at 22:30; Stop 07/05/19 at 22:31; Status DC Magnesium Sulfate 50 ml @ 25 mls/hr 1X ONCE IV Last administered on 07/06/19at 02:57; Start 07/06/19 at 03:00; Stop 07/06/19 at 04:59; Status DC Calcium Gluconate 1000 mg/Sodium Chloride 110 ml @ 220 mls/hr 1X ONCE IV Last administered on 07/06/19at 02:46; Start 07/06/19 at 03:00; Stop 07/06/19 at 03:29; Status DC Sodium Chloride 1,000 ml @ 200 mls/hr Q5H IV Last administered on 07/06/19at 02:46; Start 07/06/19 at 03:00; Stop 07/06/19 at 10:21; Status DC Calcium Gluconate 1000 mg/Sodium Chloride 110 ml @ 220 mls/hr 1X ONCE IV Last administered on 07/06/19at 03:21; Start 07/06/19 at 03:30; Stop 07/06/19 at 03:59; Status DC Sodium Bicarbonate 50 meq/Sodium Chloride 1,050 ml @ 75 mls/hr Q14H IV Last administered on 07/10/19at 21:10; Start 07/06/19 at 07:30; Stop 07/11/19 at 10:28; Status DC Calcium Gluconate 2000 mg/Sodium Chloride 120 ml @ 220 mls/hr 1X ONCE IV Last administered on 07/06/19at 09:05; Start 07/06/19 at 07:30; Stop 07/06/19 at 08:02; Status DC Lidocaine HCl (Xylocaine-Mpf 1% 2ml Vial) 2 ml STK-MED ONCE .ROUTE ; Start 07/06/19 at 08:47; Stop 07/06/19 at 08:47; Status DC Meropenem 500 mg/ Sodium Chloride 50 ml @ 100 mls/hr Q12HR IV Last administered on 07/11/19at 21:01; Start 07/06/19 at 18:00; Stop 07/12/19 at 07:58; Status DC Lidocaine HCl (Buffered Lidocaine 1%) 3 ml STK-MED ONCE .ROUTE ; Start 07/06/19 at 09:46; Stop 07/06/19 at 09:46; Status DC Lidocaine HCl (Buffered Lidocaine 1%) 6 ml 1X ONCE INJ Last administered on 07/06/19at 10:26; Start 07/06/19 at 10:15; Stop 07/06/19 at 10:16; Status DC Info (Tpn Per Pharmacy) 1 each PRN DAILY PRN MC SEE COMMENTS Last administered on 11/04/19at 10:02; Start 07/06/19 at 12:00 Sodium Chloride 1,000 ml @ 1,000 mls/hr Q1H PRN IV hypotension; Start 07/06/19 at 12:07; Stop 07/06/19 at 18:06; Status DC Diphenhydramine HCl (Benadryl) 25 mg 1X PRN PRN IV ITCHING; Start 07/06/19 at 12:15; Stop 07/07/19 at 12:14; Status DC Diphenhydramine HCl (Benadryl) 25 mg 1X PRN PRN IV ITCHING; Start 07/06/19 at 12:15; Stop 07/07/19 at 12:14; Status DC Sodium Chloride 1,000 ml @ 400 mls/hr Q2H30M PRN IV PATENCY; Start 07/06/19 at 12:07; Stop 07/07/19 at 00:06; Status DC Info (PHARMACY MONITORING -- do not chart) 1 each PRN DAILY PRN MC SEE COMMENTS; Start 07/06/19 at 12:15; Stop 07/08/19 at 08:13; Status DC Sodium Chloride 90 meq/Calcium Gluconate 10 meq/ Multivitamins 10 ml/Chromium/ Copper/Manganese/ Seleni/Zn 1 ml/ Total Parenteral Nutrition/Amino Acids/Dextrose/ Fat Emulsion Intravenous 55.005 ml @ 2.292 mls/hr TPN CONT IV ; Start 07/06/19 at 22:00; Stop 07/06/19 at 12:33; Status DC Info (Tpn Per Pharmacy) 1 each PRN DAILY PRN MC SEE COMMENTS; Start 07/06/19 at 12:30; Status UNV Sodium Chloride 90 meq/Calcium Gluconate 10 meq/ Multivitamins 10 ml/Chromium/ Copper/Manganese/ Seleni/Zn 0.5 ml/ Total Parenteral Nutrition/Amino Acids/Dextrose/ Fat Emulsion Intravenous 1,512 ml @ 63 mls/hr TPN CONT IV Last administered on 07/06/19at 22:06; Start 07/06/19 at 22:00; Stop 07/07/19 at 21:59; Status DC Calcium Carbonate/ Glycine (Tums) 500 mg PRN AFTMEALHC PRN PO INDIGESTION; Start 07/06/19 at 17:45; Stop 08/31/19 at 10:25; Status DC Calcium Gluconate (Calcium Gluconate) 2,000 mg 1X ONCE IVP Last administered on 07/07/19at 02:19; Start 07/07/19 at 02:15; Stop 07/07/19 at 02:16; Status DC Calcium Chloride 3000 mg/Sodium Chloride 1,030 ml @ 50 mls/hr [id number] IV Last administered on 07/09/19at 02:17; Start 07/07/19 at 08:00; Stop 07/09/19 at 15:23; Status DC Lorazepam (Ativan Inj) 1 mg PRN Q4HRS PRN IVP ANXIETY / AGITATION, 2nd choic Last administered on 08/05/19at 03:51; Start 07/07/19 at 09:00; Stop 08/05/19 at 09:19; Status DC Sodium Chloride 1,000 ml @ 1,000 mls/hr Q1H PRN IV hypotension; Start 07/07/19 at 08:56; Stop 07/07/19 at 14:55; Status DC Albumin Human 200 ml @ 200 mls/hr 1X PRN PRN IV Hypotension; Start 07/07/19 at 09:00; Stop 07/07/19 at 14:59; Status DC Diphenhydramine HCl (Benadryl) 25 mg 1X PRN PRN IV ITCHING; Start 07/07/19 at 09:00; Stop 07/08/19 at 08:59; Status DC Diphenhydramine HCl (Benadryl) 25 mg 1X PRN PRN IV ITCHING; Start 07/07/19 at 09:00; Stop 07/08/19 at 08:59; Status DC Sodium Chloride 1,000 ml @ 400 mls/hr Q2H30M PRN IV PATENCY; Start 07/07/19 at 08:56; Stop 07/07/19 at 20:55; Status DC Info (PHARMACY MONITORING -- do not chart) 1 each PRN DAILY PRN MC SEE COMMENT S; Start 07/07/19 at 09:00; Status UNV Info (PHARMACY MONITORING -- do not chart) 1 each PRN DAILY PRN MC SEE COMMENTS; Start 07/07/19 at 09:00; Stop 07/08/19 at 08:13; Status DC Digoxin (Lanoxin) 500 mcg 1X ONCE IV Last administered on 07/07/19at 10:04; Start 07/07/19 at 10:00; Stop 07/07/19 at 10:01; Status DC Digoxin (Lanoxin) 125 mcg 1X ONCE IV Last administered on 07/07/19at 17:10; Start 07/07/19 at 18:00; Stop 07/07/19 at 18:01; Status DC Magnesium Sulfate 100 ml @ 25 mls/hr 1X ONCE IV Last administered on 07/07/19at 12:48; Start 07/07/19 at 13:00; Stop 07/07/19 at 16:59; Status DC Sodium Chloride 90 meq/Magnesium Sulfate 10 meq/ Calcium Gluconate 20 meq/ Multivitamins 10 ml/Chromium/ Copper/Manganese/ Seleni/Zn 0.5 ml/ Total Parenteral Nutrition/Amino Acids/Dextrose/ Fat Emulsion Intravenous 1,512 ml @ 63 mls/hr TPN CONT IV Last administered on 07/07/19at 22:25; Start 07/07/19 at 22:00; Stop 07/08/19 at 21:59; Status DC Sodium Chloride 1,000 ml @ 1,000 mls/hr Q1H PRN IV hypotension; Start 07/08/19 at 08:05; Stop 07/08/19 at 14:04; Status DC Albumin Human 200 ml @ 200 mls/hr 1X ONCE IV Last administered on 07/08/19at 08:57; Start 07/08/19 at 08:15; Stop 07/08/19 at 09:14; Status DC Diphenhydramine HCl (Benadryl) 25 mg 1X PRN PRN IV ITCHING; Start 07/08/19 at 08:15; Stop 07/09/19 at 08:14; Status DC Diphenhydramine HCl (Benadryl) 25 mg 1X PRN PRN IV ITCHING; Start 07/08/19 at 08:15; Stop 07/09/19 at 08:14; Status DC Sodium Chloride 1,000 ml @ 400 mls/hr Q2H30M PRN IV PATENCY; Start 07/08/19 at 08:05; Stop 07/08/19 at 20:04; Status DC Info (PHARMACY MONITORING -- do not chart) 1 each PRN DAILY PRN SEE [facility] MENTS; Start 07/08/19 at 08:15; Stop 07/12/19 at 07:57; Status DC Sodium Chloride 90 meq/Potassium Chloride 15 meq/ Potassium Phosphate 10 mmol/ Magnesium Sulfate 10 meq/Calcium Gluconate 20 meq/ Multivitamins 10 ml/Chromium/ Copper/Manganese/ Seleni/Zn 0.5 ml/ Total Parenteral Nutrition/Amino Acids/Dextrose/ Fat Emulsion Intravenous 1,512 ml @ 63 mls/hr TPN CONT IV Last administered on 07/08/19at 21:01; Start 07/08/19 at 22:00; Stop 07/09/19 at 21:59; Status DC Potassium Chloride/Water 100 ml @ 100 mls/hr 1X ONCE IV Last administered on 07/08/19at 14:09; Start 07/08/19 at 14:00; Stop 07/08/19 at 14:59; Status DC Benzocaine (Hurricaine One) 1 spray 1X ONCE MM Last administered on 07/08/19at 16:38; Start 07/08/19 at 14:30; Stop 07/08/19 at 14:31; Status DC Lidocaine HCl (Glydo (Lidocaine) Jelly) 1 ramu 1X ONCE MM Last administered on 07/08/19at 16:38; Start 07/08/19 at 14:30; Stop 07/08/19 at 14:31; Status DC Linezolid/Dextrose 300 ml @ 300 mls/hr Q12HR IV Last administered on 07/14/19at 21:04; Start 07/08/19 at 20:00; Stop 07/15/19 at 07:50; Status DC Acetaminophen (Tylenol) 650 mg PRN Q6HRS PRN PO MILD PAIN / TEMP; Start 07/09/19 at 03:30; Stop 07/09/19 at 03:36; Status DC Acetaminophen (Tylenol) 650 mg PRN Q6HRS PRN PEG MILD PAIN / TEMP Last a dministered on 08/04/19at 19:56; Start 07/09/19 at 03:36; Stop 08/31/19 at 10:25; Status DC Sodium Chloride 1,000 ml @ 1,000 mls/hr Q1H PRN IV hypotension; Start 07/09/19 at 07:50; Stop 07/09/19 at 13:49; Status DC Albumin Human 200 ml @ 200 mls/hr 1X PRN PRN IV Hypotension; Start 07/09/19 at 08:00; Stop 07/09/19 at 13:59; Status DC Sodium Chloride (Normal Saline Flush) 10 ml 1X PRN PRN IV AP catheter pack; Start 07/09/19 at 08:00; Stop 07/10/19 at 07:59; Status DC Sodium Chloride (Normal Saline Flush) 10 ml 1X PRN PRN IV [employer] catheter pack; Start 07/09/19 at 08:00; Stop 07/10/19 at 07:59; Status DC Sodium Chloride 1,000 ml @ 400 mls/hr Q2H30M PRN IV PATENCY; Start 07/09/19 at 07:50; Stop 07/09/19 at 19:49; Status DC Info (PHARMACY MONITORING -- do not chart) 1 each PRN DAILY PRN MC SEE COMMENTS; Start 07/09/19 at 08:00; Status UNV Info (PHARMACY MONITORING -- do not chart) 1 each PRN DAILY PRN MC SEE COMMENTS; Start 07/09/19 at 08:00; Stop 07/11/19 at 08:25; Status DC Sodium Chloride 90 meq/Potassium Chloride 15 meq/ Potassium Phosphate 10 mmol/ Magnesium Sulfate 10 meq/Calcium Gluconate 20 meq/ Multivitamins 10 ml/Chromium/ Copper/Manganese/ Seleni/Zn 0.5 ml/ Total Parenteral Nutrition/Amino Acids/Dextrose/ Fat Emulsion Intravenous 1,512 ml @ 63 mls/hr TPN CONT IV Last administered on 07/09/19at 20:57; Start 07/09/19 at 22:00; Stop 07/10/19 at 21:59; Status DC Sodium Chloride 90 meq/Potassium Chloride 15 meq/ Potassium Phosphate 15 mmol/ Magnesium Sulfate 10 meq/Calcium Gluconate 20 meq/ Multivitamins 10 ml/Chromium/ Copper/Manganese/ Seleni/Zn 0.5 ml/ Total Parenteral Nutrition/Amino Acids/Dextrose/ Fat Emulsion Intravenous 1,512 ml @ 63 mls/hr TPN CONT IV ; Start 07/10/19 at 22:00; Stop 07/10/19 at 14:16; Status DC Sodium Chloride 90 meq/Potassium Chloride 15 meq/ Potassium Phosphate 15 mmol/ Magnesium Sulfate 10 meq/Calcium Gluconate 20 meq/ Multivitamins 10 ml/Chromium/ Copper/Manganese/ Seleni/Zn 0.5 ml/ Total Parenteral Nutrition/Amino Acids/Dextrose/ Fat Emulsion Intravenous 1,200 ml @ 50 mls/hr TPN CONT IV ; Start 07/10/19 at 22:00; Stop 07/10/19 at 14:17; Status DC Sodium Chloride 90 meq/Potassium Chloride 15 meq/ Potassium Phosphate 10 mmol/ Magnesium Sulfate 10 meq/Calcium Gluconate 20 meq/ Multivitamins 10 ml/Chromium/ Copper/Manganese/ Seleni/Zn 0.5 ml/ Total Parenteral Nutrition/Amino Acids/Dextrose/ Fat Emulsion Intravenous 1,200 ml @ 50 mls/hr TPN CONT IV Last administered on 07/10/19at 23:29; Start 07/10/19 at 22:00; Stop 07/11/19 at 21:59; Status DC Sodium Chloride 1,000 ml @ 1,000 mls/hr Q1H PRN IV hypotension; Start 07/11/19 at 07:28; Stop 07/11/19 at 13:27; Status DC Albumin Human 200 ml @ 200 mls/hr 1X ONCE IV Last administered on 07/11/19at 08:51; Start 07/11/19 at 07:30; Stop 07/11/19 at 08:29; Status DC Diphenhydramine HCl (Benadryl) 25 mg 1X PRN PRN IV ITCHING; Start 07/11/19 at 07:30; Stop 07/12/19 at 07:29; Status DC Diphenhydramine HCl (Benadryl) 25 mg 1X PRN PRN IV ITCHING; Start 07/11/19 at 07:30; Stop 07/12/19 at 07:29; Status DC Sodium Chloride 1,000 ml @ 400 mls/hr Q2H30M PRN IV PATENCY; Start 07/11/19 at 07:28; Stop 07/11/19 at 19:27; Status DC Info (PHARMACY MONITORING -- do not chart) 1 each PRN DAILY PRN MC SEE COMMENTS; Start 07/11/19 at 07:30; Stop 07/22/19 at 13:01; Status DC Metronidazole 100 ml @ 100 mls/hr Q6HRS IV Last administered on 07/27/19at 06:26; Start 07/11/19 at 08:30; Stop 07/27/19 at 09:58; Status DC Micafungin Sodium 100 mg/Dextrose 100 ml @ 100 mls/hr Q24H IV Last administered on 08/18/19at 08:18; Start 07/11/19 at 09:00; Stop 08/18/19 at 20:58; Status DC Propofol 0 ml @ As Directed STK-MED ONCE IV ; Start 07/11/19 at 07:53; Stop 07/11/19 at 07:53; Status DC Etomidate (Amidate) 20 mg STK-MED ONCE IV ; Start 07/11/19 at 07:53; Stop 07/11/19 at 07:54; Status DC Midazolam HCl (Versed) 5 mg STK-MED ONCE .ROUTE ; Start 07/11/19 at 07:57; Stop 07/11/19 at 07:57; Status DC Fentanyl Citrate 30 ml @ 0 mls/hr CONT PRN IV SEE PROTOCOL Last administered on 08/05/19at 06:12; Start 07/11/19 at 08:15; Stop 08/05/19 at 09:19; Status DC Artificial Tears (Artificial Tears) 1 drop PRN Q1HR PRN OU DRY EYE, 1st choice; Start 07/11/19 at 08:15; Stop 08/17/19 at 05:31; Status DC Midazolam HCl 50 mg/Sodium Chloride 50 ml @ 0 mls/hr CONT PRN IV SEE PROTOCOL Last administered on 07/14/19at 22:39; Start 07/11/19 at 08:15; Stop 07/16/19 at 15:59; Status DC Etomidate (Amidate) 8 mg 1X ONCE IV Last administered on 07/11/19at 08:33; Start 07/11/19 at 08:30; Stop 07/11/19 at 08:31; Status DC Succinylcholine Chloride (Anectine) 120 mg 1X ONCE IV Last administered on 07/11/19at 08:34; Start 07/11/19 at 08:30; Stop 07/11/19 at 08:31; Status DC Midazolam HCl (Versed) 5 mg 1X ONCE IV ; Start 07/11/19 at 08:30; Stop 07/11/19 at 08:31; Status DC Potassium Chloride 15 meq/ Bicarbonate Dialysis Soln w/ out KCl 5,007.5 ml @ 1,000 mls/ hr Q5H1M IV Last administered on 07/12/19at 11:11; Start 07/11/19 at 12:00; Stop 07/12/19 at 11:15; Status DC Potassium Chloride 15 meq/ Bicarbonate Dialysis Soln w/ out KCl 5,007.5 ml @ 1,000 mls/ hr Q5H1M IV Last administered on 07/12/19at 11:12; Start 07/11/19 at 12:00; Stop 07/12/19 at 11:17; Status DC Potassium Chloride 15 meq/ Bicarbonate Dialysis Soln w/ out KCl 5,007.5 ml @ 1,000 mls/ hr Q5H1M IV Last administered on 07/12/19at 11:11; Start 07/11/19 at 12:00; Stop 07/12/19 at 11:19; Status DC Sodium Chloride 90 meq/Potassium Chloride 15 meq/ Potassium Phosphate 10 mmol/ Magnesium Sulfate 10 meq/Calcium Gluconate 20 meq/ Multivitamins 10 ml/Chromium/ Copper/Manganese/ Seleni/Zn 0.5 ml/ Total Parenteral Nutrition/Amino Acids/Dextrose/ Fat Emulsion Intravenous 1,400 ml @ 58.333 mls/ hr TPN CONT IV Last administered on 07/11/19at 21:42; Start 07/11/19 at 22:00; Stop 07/12/19 at 21:59; Status DC Heparin Sodium (Porcine) (Heparin Sodium) 5,000 unit Q8HRS SQ Last administered on 07/16/19at 05:55; Start 07/11/19 at 15:00; Stop 07/16/19 at 13:28; Status DC Meropenem 500 mg/ Sodium Chloride 50 ml @ 100 mls/hr Q6HRS IV Last administered on 07/13/19at 06:00; Start 07/12/19 at 09:00; Stop 07/13/19 at 07:29; Status DC Potassium Phosphate 20 mmol/ Sodium Chloride 106.6667 ml @ 51.667 m... 1X ONCE IV Last administered on 07/12/19at 11:22; Start 07/12/19 at 10:15; Stop 07/12/19 at 12:18; Status DC Acetaminophen (Tylenol Supp) 650 mg PRN Q6HRS PRN DC MILD PAIN / TEMP > 100.3'F Last administered on 11/02/19at 19:52; Start 07/12/19 at 10:30 Potassium Chloride/Water 100 ml @ 100 mls/hr Q1H IV Last administered on 07/12/19at 12:12; Start 07/12/19 at 11:00; Stop 07/12/19 at 12:59; Status DC Potassium Chloride 20 meq/ Bicarbonate Dialysis Soln w/ out KCl 5,010 ml @ 1,000 mls/hr Q5H1M IV Last administered on 07/13/19at 08:48; Start 07/12/19 at 12:00; Stop 07/13/19 at 13:03; Status DC Potassium Chloride 20 meq/ Bicarbonate Dialysis Soln w/ out KCl 5,010 ml @ 1,000 mls/hr Q5H1M IV Last administered on 07/17/19at 14:52; Start 07/12/19 at 11:30; Stop 07/17/19 at 19:59; Status DC Potassium Chloride 20 meq/ Bicarbonate Dialysis Soln w/ out KCl 5,010 ml @ 1,000 mls/hr Q5H1M IV Last administered on 07/17/19at 14:53; Start 07/12/19 at 11:30; Stop 07/17/19 at 19:59; Status DC Sodium Chloride 90 meq/Potassium Chloride 15 meq/ Potassium Phosphate 15 mmol/ Magnesium Sulfate 10 meq/Calcium Gluconate 15 meq/ Multivitamins 10 ml/Chromium/ Copper/Manganese/ Seleni/Zn 0.5 ml/ Total Parenteral Nutrition/Amino Acids/Dextrose/ Fat Emulsion Intravenous 1,400 ml @ 58.333 mls/ hr TPN CONT IV Last administered on 07/12/19at 22:17; Start 07/12/19 at 22:00; Stop 07/13/19 at 21:59; Status DC Cefepime HCl (Maxipime) 2 gm Q12HR IVP Last administered on 07/26/19at 20:56; Start 07/13/19 at 09:00; Stop 07/27/19 at 09:58; Status DC Daptomycin 500 mg/ Sodium Chloride 50 ml @ 100 mls/hr Q48H IV Last administered on 07/29/19at 09:57; Start 07/13/19 at 08:30; Stop 07/29/19 at 10:07; Status DC Lidocaine HCl (Buffered Lidocaine 1%) 3 ml 1X ONCE INJ Last administered on 07/13/19at 10:27; Start 07/13/19 at 10:30; Stop 07/13/19 at 10:31; Status DC Potassium Phosphate 20 mmol/ Sodium Chloride 106.6667 ml @ 51.667 m... 1X ONCE IV Last administered on 07/13/19at 12:51; Start 07/13/19 at 13:00; Stop 07/13/19 at 15:03; Status DC Sodium Chloride 90 meq/Potassium Chloride 15 meq/ Potassium Phosphate 18 mmol/ Magnesium Sulfate 8 meq/Calcium Gluconate 15 meq/ Multivitamins 10 ml/Chromium/ Copper/Manganese/ Seleni/Zn 0.5 ml/ Total Parenteral Nutrition/Amino Acids/Dextrose/ Fat Emulsion Intravenous 1,400 ml @ 58.333 mls/ hr TPN CONT IV Last administered on 07/13/19at 22:16; Start 07/13/19 at 22:00; Stop 07/14/19 at 21:59; Status DC Potassium Chloride 20 meq/ Bicarbonate Dialysis Soln w/ out KCl 5,010 ml @ 1,000 mls/hr Q5H1M IV Last administered on 07/17/19at 14:54; Start 07/13/19 at 16:00; Stop 07/17/19 at 19:59; Status DC Multi-Ingred Cream/Lotion/Oil/ Oint (Artificial Tears Eye Ointment) 1 ramu PRN Q1HR PRN OU DRY EYE, 2nd choice Last administered on 08/01/19at 08:19; Start 07/13/19 at 17:30; Stop 09/21/19 at 14:39; Status DC Sodium Chloride 90 meq/Potassium Chloride 15 meq/ Potassium Phosphate 18 mmol/ Magnesium Sulfate 8 meq/Calcium Gluconate 15 meq/ Multivitamins 10 ml/Chromium/ Copper/Manganese/ Seleni/Zn 0.5 ml/ Total Parenteral Nutrition/Amino Acids/Dextrose/ Fat Emulsion Intravenous 1,400 ml @ 58.333 mls/ hr TPN CONT IV Last administered on 07/14/19at 22:00; Start 07/14/19 at 22:00; Stop 07/15/19 at 21:59; Status DC Albumin Human 500 ml @ 125 mls/hr 1X ONCE IV ; Start 07/14/19 at 14:15; Stop 07/14/19 at 18:14; Status DC Sodium Chloride 90 meq/Potassium Chloride 15 meq/ Potassium Phosphate 18 mmol/ Magnesium Sulfate 8 meq/Calcium Gluconate 15 meq/ Multivitamins 10 ml/Chromium/ Copper/Manganese/ Seleni/Zn 0.5 ml/ Insulin Human Regular 10 unit/ Total Parenteral Nutrition/Amino Acids/Dextrose/ Fat Emulsion Intravenous 1,400 ml @ 58.333 mls/ hr TPN CONT IV Last administered on 07/15/19at 21:43; Start 07/15/19 at 22:00; Stop 07/16/19 at 21:59; Status DC Lidocaine HCl (Buffered Lidocaine 1%) 3 ml STK-MED ONCE .ROUTE ; Start 07/13/19 at 10:00; Stop 07/15/19 at 13:57; Status DC Midazolam HCl 100 mg/Sodium Chloride 100 ml @ 7 mls/hr CONT PRN IV SEE PROTOCOL Last administered on 07/27/19at 15:35; Start 07/16/19 at 16:00; Stop 09/21/19 at 14:38; Status DC Sodium Chloride 90 meq/Potassium Chloride 15 meq/ Potassium Phosphate 18 mmol/ Magnesium Sulfate 8 meq/Calcium Gluconate 15 meq/ Multivitamins 10 ml/Chromium/ Copper/Manganese/ Seleni/Zn 0.5 ml/ Insulin Human Regular 15 unit/ Total Parenteral Nutrition/Amino Acids/Dextrose/ Fat Emulsion Intravenous 1,400 ml @ 58.333 mls/ hr TPN CONT IV Last administered on 07/16/19at 20:34; Start 07/16/19 at 22:00; Stop 07/17/19 at 21:59; Status DC Info (Icu Electrolyte Protocol) 1 ea CONT PRN PRN MC PER PROTOCOL; Start 07/17/19 at 13:15 Sodium Chloride 90 meq/Potassium Chloride 15 meq/ Potassium Phosphate 18 mmol/ Magnesium Sulfate 8 meq/Calcium Gluconate 15 meq/ Multivitamins 10 ml/Chromium/ Copper/Manganese/ Seleni/Zn 0.5 ml/ Insulin Human Regular 15 unit/ Total Parenteral Nutrition/Amino Acids/Dextrose/ Fat Emulsion Intravenous 1,400 ml @ 58.333 mls/ hr TPN CONT IV Last administered on 07/17/19at 22:05; Start 07/17/19 at 22:00; Stop 07/18/19 at 21:59; Status DC Potassium Chloride 15 meq/ Bicarbonate Dialysis Soln w/ out KCl 5,007.5 ml @ 1,000 mls/ hr Q5H1M IV Last administered on 07/20/19at 18:14; Start 07/17/19 at 20:00; Stop 07/21/19 at 13:08; Status DC Potassium Chloride 15 meq/ Bicarbonate Dialysis Soln w/ out KCl 5,007.5 ml @ 1,000 mls/ hr Q5H1M IV Last administered on 07/20/19at 18:14; Start 07/17/19 at 20:00; Stop 07/21/19 at 13:08; Status DC Potassium Chloride 15 meq/ Bicarbonate Dialysis Soln w/ out KCl 5,007.5 ml @ 1,000 mls/ hr Q5H1M IV Last administered on 07/20/19at 18:14; Start 07/17/19 at 20:00; Stop 07/21/19 at 13:08; Status DC Iohexol (Omnipaque 240 Mg/ml) 30 ml 1X ONCE PO Last administered on 07/18/19at 11:30; Start 07/18/19 at 11:30; Stop 07/18/19 at 11:33; Status DC Info (CONTRAST GIVEN -- Rx MONITORING) 1 each PRN DAILY PRN MC SEE COMMENTS; Start 07/18/19 at 11:45; Stop 07/20/19 at 11:44; Status DC Sodium Chloride 90 meq/Potassium Chloride 15 meq/ Potassium Phosphate 18 mmol/ Magnesium Sulfate 8 meq/Calcium Gluconate 15 meq/ Multivitamins 10 ml/Chromium/ Copper/Manganese/ Seleni/Zn 0.5 ml/ Insulin Human Regular 15 unit/ Total Parenteral Nutrition/Amino Acids/Dextrose/ Fat Emulsion Intravenous 1,400 ml @ 58.333 mls/ hr TPN CONT IV Last administered on 07/18/19at 21:47; Start 07/18/19 at 22:00; Stop 07/19/19 at 21:59; Status DC Sodium Chloride 90 meq/Potassium Chloride 15 meq/ Potassium Phosphate 18 mmol/ Magnesium Sulfate 8 meq/Calcium Gluconate 15 meq/ Multivitamins 10 ml/Chromium/ Copper/Manganese/ Seleni/Zn 0.5 ml/ Insulin Human Regular 20 unit/ Total Parenteral Nutrition/Amino Acids/Dextrose/ Fat Emulsion Intravenous 1,400 ml @ 58.333 mls/ hr TPN CONT IV Last administered on 07/19/19at 21:36; Start 07/19/19 at 22:00; Stop 07/20/19 at 21:59; Status DC Alteplase, Recombinant (Cathflo For Central Catheter Clearance) 1 mg 1X ONCE INT CAT Last administered on 07/19/19at 20:03; Start 07/19/19 at 19:30; Stop 07/19/19 at 19:46; Status DC Alteplase, Recombinant (Cathflo For Central Catheter Clearance) 1 mg 1X ONCE I NT CAT Last administered on 07/19/19at 22:05; Start 07/19/19 at 22:00; Stop 07/19/19 at 22:01; Status DC Sodium Chloride 90 meq/Potassium Chloride 15 meq/ Potassium Phosphate 18 mmol/ Magnesium Sulfate 8 meq/Calcium Gluconate 15 meq/ Multivitamins 10 ml/Chromium/ Copper/Manganese/ Seleni/Zn 0.5 ml/ Insulin Human Regular 20 unit/ Total Parenteral Nutrition/Amino Acids/Dextrose/ Fat Emulsion Intravenous 1,400 ml @ 58.333 mls/ hr TPN CONT IV Last administered on 07/20/19at 21:30; Start 07/20/19 at 22:00; Stop 07/21/19 at 21:59; Status DC Dexmedetomidine HCl 400 mcg/ Sodium Chloride 100 ml @ 0 mls/hr CONT PRN IV ANXIETY / AGITATION Last administered on 09/17/19at 12:57; Start 07/21/19 at 08:15; Stop 09/17/19 at 18:31; Status DC Sodium Chloride 500 ml @ 500 mls/hr 1X PRN PRN IV ELEVATED BP, SEE COMMENTS; Start 07/21/19 at 08:15 Atropine Sulfate (ATROPINE 0.5mg SYRINGE) 0.5 mg PRN Q5MIN PRN IV SEE COMMENTS; Start 07/21/19 at 08:15 Furosemide (Lasix) 20 mg 1X ONCE IVP Last administered on 07/21/19at 08:19; Start 07/21/19 at 08:15; Stop 07/21/19 at 08:16; Status DC Lidocaine HCl (Buffered Lidocaine 1%) 3 ml STK-MED ONCE .ROUTE ; Start 07/21/19 at 08:39; Stop 07/21/19 at 08:39; Status DC Lidocaine HCl (Buffered Lidocaine 1%) 6 ml 1X ONCE INJ Last administered on 07/21/19at 09:05; Start 07/21/19 at 09:00; Stop 07/21/19 at 09:06; Status DC Sodium Chloride 90 meq/Potassium Chloride 15 meq/ Potassium Phosphate 18 mmol/ Magnesium Sulfate 8 meq/Calcium Gluconate 15 meq/ Multivitamins 10 ml/Chromium/ Copper/Manganese/ Seleni/Zn 0.5 ml/ Insulin Human Regular 20 unit/ Total Parenteral Nutrition/Amino Acids/Dextrose/ Fat Emulsion Intravenous 1,400 ml @ 58.333 mls/ hr TPN CONT IV Last administered on 07/21/19at 22:45; Start 07/21/19 at 22:00; Stop 07/22/19 at 21:59; Status DC Sodium Chloride 1,000 ml @ 1,000 mls/hr Q1H PRN IV hypotension; Start 07/22/19 at 07:30; Stop 07/22/19 at 13:29; Status DC Albumin Human 200 ml @ 200 mls/hr 1X PRN PRN IV Hypotension Last administered on 07/22/19at 09:36; Start 07/22/19 at 07:30; Stop 07/22/19 at 13:29; Status DC Sodium Chloride (Normal Saline Flush) 10 ml 1X PRN PRN IV AP catheter pack; Start 07/22/19 at 07:30; Stop 07/22/19 at 21:29; Status DC Sodium Chloride (Normal Saline Flush) 10 ml 1X PRN PRN IV [employer] catheter pack; Start 07/22/19 at 07:30; Stop 07/23/19 at 07:29; Status DC Sodium Chloride 1,000 ml @ 400 mls/hr Q2H30M PRN IV PATENCY; Start 07/22/19 at 07:30; Stop 07/22/19 at 19:29; Status DC Info (PHARMACY MONITORING -- do not chart) 1 each PRN DAILY PRN MC SEE COMMENTS; Start 07/22/19 at 07:30; Stop 07/22/19 at 13:02; Status DC Info (PHARMACY MONITORING -- do not chart) 1 each PRN DAILY PRN MC SEE COMMENTS; Start 07/22/19 at 07:30; Stop 07/24/19 at 12:45; Status DC Sodium Chloride 90 meq/Potassium Chloride 15 meq/ Potassium Phosphate 10 mmol/ M agnesium Sulfate 8 meq/Calcium Gluconate 15 meq/ Multivitamins 10 ml/Chromium/ Copper/Manganese/ Seleni/Zn 0.5 ml/ Insulin Human Regular 25 unit/ Total Parenteral Nutrition/Amino Acids/Dextrose/ Fat Emulsion Intravenous 1,400 ml @ 58.333 mls/ hr TPN CONT IV Last administered on 07/22/19at 22:19; Start 07/22/19 at 22:00; Stop 07/23/19 at 21:59; Status DC Heparin Sodium (Porcine) (Heparin Sodium) 5,000 unit Q12HR SQ Last administered on 08/14/19at 08:59; Start 07/22/19 at 21:00; Stop 08/14/19 at 10:05; Status DC Ondansetron HCl (Zofran) 4 mg PRN Q6HRS PRN IV NAUSEA/VOMITING; Start 07/25/19 at 07:00; Stop 07/26/19 at 06:59; Status DC Fentanyl Citrate (Fentanyl 2ml Vial) 25 mcg PRN Q5MIN PRN IV MILD PAIN 1-3; Start 07/25/19 at 07:00; Stop 07/26/19 at 06:59; Status DC Fentanyl Citrate (Fentanyl 2ml Vial) 50 mcg PRN Q5MIN PRN IV MODERATE TO SEVERE PAIN; Start 07/25/19 at 07:00; Stop 07/26/19 at 06:59; Status DC Ringer's Solution 1,000 ml @ 30 mls/hr Q24H IV ; Start 07/25/19 at 07:00; Stop 07/25/19 at 18:59; Status DC Lidocaine HCl (Xylocaine-Mpf 1% 2ml Vial) 2 ml PRN 1X PRN ID PRIOR TO IV START; Start 07/25/19 at 07:00; Stop 07/26/19 at 06:59; Status DC Prochlorperazine Edisylate (Compazine) 5 mg PACU PRN PRN IV NAUSEA, MRX1; Start 07/25/19 at 07:00; Stop 07/26/19 at 06:59; Status DC Sodium Chloride 1,000 ml @ 1,000 mls/hr Q1H PRN IV hypotension; Start 07/23/19 at 09:10; Stop 07/23/19 at 15:09; Status DC Albumin Human 200 ml @ 200 mls/hr 1X PRN PRN IV Hypotension Last administered on 07/23/19at 10:10; Start 07/23/19 at 09:15; Stop 07/23/19 at 15:14; Status DC Sodium Chloride 1,000 ml @ 400 mls/hr Q2H30M PRN IV PATENCY; Start 07/23/19 at 09:10; Stop 07/23/19 at 21:09; Status DC Info (PHARMACY MONITORING -- do not chart) 1 each PRN DAILY PRN MC SEE COMMENTS; Start 07/23/19 at 09:15; Stop 07/24/19 at 12:45; Status DC Info (PHARMACY MONITORING -- do not chart) 1 each PRN DAILY PRN MC SEE COMMENTS; Start 07/23/19 at 09:15; Stop 07/24/19 at 12:45; Status DC Sodium Chloride 90 meq/Potassium Chloride 15 meq/ Potassium Phosphate 10 mmol/ Magnesium Sulfate 8 meq/Calcium Gluconate 15 meq/ Multivitamins 10 ml/Chromium/ Copper/Manganese/ Seleni/Zn 0.5 ml/ Insulin Human Regular 25 unit/ Total Parenteral Nutrition/Amino Acids/Dextrose/ Fat Emulsion Intravenous 1,400 ml @ 58.333 mls/ hr TPN CONT IV Last administered on 07/23/19at 22:10; Start 07/23/19 at 22:00; Stop 07/24/19 at 21:59; Status DC Magnesium Sulfate 50 ml @ 25 mls/hr PRN DAILY PRN IV for Mag < 1.7 on am labs Last administered on 10/06/19at 10:57; Start 07/24/19 at 09:15 Sodium Chloride 90 meq/Potassium Chloride 15 meq/ Potassium Phosphate 10 mmol/ Magnesium Sulfate 8 meq/Calcium Gluconate 15 meq/ Multivitamins 10 ml/Chromium/ Copper/Manganese/ Seleni/Zn 0.5 ml/ Insulin Human Regular 25 unit/ Total Parenteral Nutrition/Amino Acids/Dextrose/ Fat Emulsion Intravenous 1,400 ml @ 58.333 mls/ hr TPN CONT IV Last administered on 07/24/19at 21:20; Start 07/24/19 at 22:00; Stop 07/25/19 at 21:59; Status DC Sodium Chloride 1,000 ml @ 1,000 mls/hr Q1H PRN IV hypotension; Start 07/24/19 at 12:23; Stop 07/24/19 at 18:22; Status DC Albumin Human 200 ml @ 200 mls/hr 1X ONCE IV Last administered on 07/24/19at 13:34; Start 07/24/19 at 12:30; Stop 07/24/19 at 13:29; Status DC Diphenhydramine HCl (Benadryl) 25 mg 1X PRN PRN IV ITCHING; Start 07/24/19 at 12:30; Stop 07/25/19 at 12:29; Status DC Diphenhydramine HCl (Benadryl) 25 mg 1X PRN PRN IV ITCHING; Start 07/24/19 at 12 :30; Stop 07/25/19 at 12:29; Status DC Info (PHARMACY MONITORING -- do not chart) 1 each PRN DAILY PRN MC SEE COMMENTS; Start 07/24/19 at 12:30; Status Cancel Bupivacaine HCl/ Epinephrine Bitart (Sensorcain-Epi 0.5%-1:440063 Mpf) 30 ml STK-MED ONCE .ROUTE Last administered on 07/25/19at 11:44; Start 07/25/19 at 11:00; Stop 07/25/19 at 11:01; Status DC Cellulose (Surgicel Fibrillar 1x2) 1 each STK-MED ONCE .ROUTE ; Start 07/25/19 at 11:00; Stop 07/25/19 at 11:01; Status DC Sodium Chloride 90 meq/Potassium Chloride 15 meq/ Potassium Phosphate 10 mmol/ Magnesium Sulfate 12 meq/Calcium Gluconate 15 meq/ Multivitamins 10 ml/Chromium/ Copper/Manganese/ Seleni/Zn 0.5 ml/ Insulin Human Regular 25 unit/ Total Parenteral Nutrition/Amino Acids/Dextrose/ Fat Emulsion Intravenous 1,400 ml @ 58.333 mls/ hr TPN CONT IV Last administered on 07/25/19at 22:24; Start 07/25/19 at 22:00; Stop 07/26/19 at 21:59; Status DC Propofol 20 ml @ As Directed STK-MED ONCE IV ; Start 07/25/19 at 11:07; Stop 07/25/19 at 11:07; Status DC Cellulose (Surgicel Hemostat 4x8) 1 each STK-MED ONCE .ROUTE Last administered on 07/25/19at 11:44; Start 07/25/19 at 11:55; Stop 07/25/19 at 11:56; Status DC Sevoflurane (Ultane) 60 ml STK-MED ONCE IH ; Start 07/25/19 at 12:46; Stop 07/25/19 at 12:46; Status DC Sodium Chloride 1,000 ml @ 1,000 mls/hr Q1H PRN IV hypotension; Start 07/25/19 at 13:51; Stop 07/25/19 at 19:50; Status DC Albumin Human 200 ml @ 200 mls/hr 1X PRN PRN IV Hypotension Last administered on 07/25/19at 14:51; Start 07/25/19 at 14:00; Stop 07/25/19 at 19:59; Status DC Diphenhydramine HCl (Benadryl) 25 mg 1X PRN PRN IV ITCHING; Start 07/25/19 at 14:00; Stop 07/26/19 at 13:59; Status DC Diphenhydramine HCl (Benadryl) 25 mg 1X PRN PRN IV ITCHING; Start 07/25/19 at 14:00; Stop 07/26/19 at 13:59; Status DC Sodium Chloride 1,000 ml @ 400 mls/hr Q2H30M PRN IV PATENCY; Start 07/25/19 at 13:51; Stop 07/26/19 at 01:50; Status DC Info (PHARMACY MONITORING -- do not chart) 1 each PRN DAILY PRN MC SEE COMMENTS; Start 07/25/19 at 14:00; Stop 07/28/19 at 08:16; Status DC Heparin Sodium (Porcine) (Hep Lock Adult) 500 unit STK-MED ONCE IVP ; Start 07/26/19 at 09:29; Stop 07/26/19 at 09:30; Status DC Sodium Chloride 1,000 ml @ 1,000 mls/hr Q1H PRN IV hypotension; Start 07/26/19 at 10:43; Stop 07/26/19 at 16:42; Status DC Sodium Chloride 1,000 ml @ 400 mls/hr Q2H30M PRN IV PATENCY; Start 07/26/19 at 10:43; Stop 07/26/19 at 22:42; Status DC Info (PHARMACY MONITORING -- do not chart) 1 each PRN DAILY PRN MC SEE COMMENTS; Start 07/26/19 at 10:45; Status UNV Info (PHARMACY MONITORING -- do not chart) 1 each PRN DAILY PRN MC SEE COMMENTS; Start 07/26/19 at 10:45; Status UNV Sodium Chloride 90 meq/Potassium Chloride 15 meq/ Magnesium Sulfate 12 meq/Calcium Gluconate 15 meq/ Multivitamins 10 ml/Chromium/ Copper/Manganese/ Seleni/Zn 0.5 ml/ Insulin Human Regular 25 unit/ Total Parenteral Nutrition/Amino Acids/Dextrose/ Fat Emulsion Intravenous 1,400 ml @ 58.333 mls/ hr TPN CONT IV Last administered on 07/26/19at 22:13; Start 07/26/19 at 22:00; Stop 07/27/19 at 21:59; Status DC Sodium Chloride 1,000 ml @ 1,000 mls/hr Q1H PRN IV hypotension; Start 07/27/19 at 07:50; Stop 07/27/19 at 13:49; Status DC Albumin Human 200 ml @ 200 mls/hr 1X ONCE IV ; Start 07/27/19 at 08:00; Stop 07/27/19 at 08:53; Status DC Diphenhydramine HCl (Benadryl) 25 mg 1X PRN PRN IV ITCHING; Start 07/27/19 at 08:00; Stop 07/28/19 at 07:59; Status DC Diphenhydramine HCl (Benadryl) 25 mg 1X PRN PRN IV ITCHING; Start 07/27/19 at 08:00; Stop 07/28/19 at 07:59; Status DC Info (PHARMACY MONITORING -- do not chart) 1 each PRN DAILY PRN MC SEE COMMENTS; Start 07/27/19 at 08:00; Stop 07/28/19 at 08:16; Status DC Albumin Human 50 ml @ 50 mls/hr 1X ONCE IV ; Start 07/27/19 at 08:53; Stop 07/27/19 at 08:56; Status DC Albumin Human 200 ml @ 50 mls/hr PRN 1X PRN IV HYPOTENSION Last administered on 08/02/19at 11:54; Start 07/27/19 at 09:00; Stop 09/08/19 at 11:14; Status DC Meropenem 500 mg/ Sodium Chloride 50 ml @ 100 mls/hr Q12H IV Last administered on 08/16/19at 10:45; Start 07/27/19 at 10:00; Stop 08/16/19 at 12:37; Status DC Sodium Chloride 90 meq/Magnesium Sulfate 12 meq/ Calcium Gluconate 15 meq/ Multivitamins 10 ml/Chromium/ Copper/Manganese/ Seleni/Zn 0.5 ml/ Insulin Human Regular 25 unit/ Total Parenteral Nutrition/Amino Acids/Dextrose/ Fat Emulsion Intravenous 1,400 ml @ 58.333 mls/ hr TPN CONT IV Last administered on 07/27/19at 21:41; Start 07/27/19 at 22:00; Stop 07/28/19 at 21:59; Status DC Sodium Chloride 1,000 ml @ 1,000 mls/hr Q1H PRN IV hypotension; Start 07/28/19 at 07:58; Stop 07/28/19 at 13:57; Status DC Albumin Human 200 ml @ 200 mls/hr 1X PRN PRN IV Hypotension Last administered on 07/28/19at 09:30; Start 07/28/19 at 08:00; Stop 07/28/19 at 13:59; Status DC Sodium Chloride 1,000 ml @ 400 mls/hr Q2H30M PRN IV PATENCY; Start 07/28/19 at 07:58; Stop 07/28/19 at 19:57; Status DC Info (PHARMACY MONITORING -- do not chart) 1 each PRN DAILY PRN MC SEE COMMENTS; Start 07/28/19 at 08:00; Status Cancel Info (PHARMACY MONITORING -- do not chart) 1 each PRN DAILY PRN MC SEE COMMENTS; Start 07/28/19 at 08:15; Status UNV Sodium Chloride 90 meq/Potassium Phosphate 5 mmol/ Magnesium Sulfate 12 meq/Calcium Gluconate 15 meq/ Multivitamins 10 ml/Chromium/ Copper/Manganese/ Seleni/Zn 0.5 ml/ Insulin Human Regular 30 unit/ Total Parenteral Nutrition/Amino Acids/Dextrose/ Fat Emulsion Intravenous 1,400 ml @ 58.333 mls/ hr TPN CONT IV Last administered on 07/28/19at 22:08; Start 07/28/19 at 22:00; Stop 07/29/19 at 21:59; Status DC Linezolid/Dextrose 300 ml @ 300 mls/hr Q12HR IV Last administered on 08/08/19at 20:40; Start 07/29/19 at 11:00; Stop 08/09/19 at 08:10; Status DC Sodium Chloride 90 meq/Potassium Phosphate 15 mmol/ Magnesium Sulfate 12 meq/Calcium Gluconate 15 meq/ Multivitamins 10 ml/Chromium/ Copper/Manganese/ Seleni/Zn 0.5 ml/ Insulin Human Regular 30 unit/ Total Parenteral Nutrition/Amino Acids/Dextrose/ Fat Emulsion Intravenous 1,400 ml @ 58.333 mls/ hr TPN CONT IV Last administered on 07/29/19at 21:49; Start 07/29/19 at 22:00; Stop 07/30/19 at 21:59; Status DC Sodium Chloride 90 meq/Potassium Phosphate 15 mmol/ Magnesium Sulfate 12 meq/Calcium Gluconate 15 meq/ Multivitamins 10 ml/Chromium/ Copper/Manganese/ Seleni/Zn 0.5 ml/ Insulin Human Regular 40 unit/ Total Parenteral Nutrition/Amino Acids/Dextrose/ Fat Emulsion Intravenous 1,400 ml @ 58.333 mls/ hr TPN CONT IV Last administered on 07/30/19at 21:21; Start 07/30/19 at 22:00; Stop 07/31/19 at 21:59; Status DC Sodium Chloride 1,000 ml @ 1,000 mls/hr Q1H PRN IV hypotension; Start 07/30/19 at 13:26; Stop 07/30/19 at 19:25; Status DC Albumin Human 200 ml @ 200 mls/hr 1X PRN PRN IV Hypotension Last administered on 07/30/19at 15:00; Start 07/30/19 at 13:30; Stop 07/30/19 at 19:29; Status DC Sodium Chloride (Normal Saline Flush) 10 ml 1X PRN PRN IV AP catheter pack; Start 07/30/19 at 13:30; Stop 07/31/19 at 13:29; Status DC Sodium Chloride (Normal Saline Flush) 10 ml 1X PRN PRN IV [employer] catheter pack; Start 07/30/19 at 13:30; Stop 07/31/19 at 13:29; Status DC Sodium Chloride 1,000 ml @ 400 mls/hr Q2H30M PRN IV PATENCY; Start 07/30/19 at 13:26; Stop 07/31/19 at 01:25; Status DC Info (PHARMACY MONITORING -- do not chart) 1 each PRN DAILY PRN MC SEE COMMENTS; Start 07/30/19 at 13:30; Stop 07/30/19 at 13:33; Status DC Info (PHARMACY MONITORING -- do not chart) 1 each PRN DAILY PRN MC SEE COMMENTS; Start 07/30/19 at 13:30; Stop 07/30/19 at 13:34; Status DC Sodium Chloride 90 meq/Potassium Phosphate 19 mmol/ Magnesium Sulfate 12 meq/Calcium Gluconate 15 meq/ Multivitamins 10 ml/Chromium/ Copper/Manganese/ Seleni/Zn 0.5 ml/ Insulin Human Regular 40 unit/ Total Parenteral Nutrition/Amino Acids/Dextrose/ Fat Emulsion Intravenous 1,400 ml @ 58.333 mls/ hr TPN CONT IV Last administered on 07/31/19at 21:54; Start 07/31/19 at 22:00; Stop 08/01/19 at 21:59; Status DC Sodium Chloride 1,000 ml @ 1,000 mls/hr Q1H PRN IV hypotension; Start 08/01/19 at 09:35; Stop 08/01/19 at 15:34; Status DC Albumin Human 200 ml @ 200 mls/hr 1X PRN PRN IV Hypotension; Start 08/01/19 at 09:45; Stop 08/01/19 at 15:44; Status DC Diphenhydramine HCl (Benadryl) 25 mg 1X PRN PRN IV ITCHING; Start 08/01/19 at 09:45; Stop 08/02/19 at 09:44; Status DC Diphenhydramine HCl (Benadryl) 25 mg 1X PRN PRN IV ITCHING; Start 08/01/19 at 09:45; Stop 08/02/19 at 09:44; Status DC Sodium Chloride 1,000 ml @ 400 mls/hr Q2H30M PRN IV PATENCY; Start 08/01/19 at 09:35; Stop 08/01/19 at 21:34; Status DC Info (PHARMACY MONITORING -- do not chart) 1 each PRN DAILY PRN MC SEE COMMENTS; Start 08/01/19 at 09:45; Status Cancel Sodium Chloride 100 meq/Potassium Phosphate 19 mmol/ Magnesium Sulfate 12 meq/Calcium Gluconate 15 meq/ Multivitamins 10 ml/Chromium/ Copper/Manganese/ Seleni/Zn 0.5 ml/ Insulin Human Regular 40 unit/ Potassium Chloride 20 meq/ Total Parenteral Nutrition/Amino Acids/Dextrose/ Fat Emulsion Intravenous 1,400 ml @ 58.333 mls/ hr TPN CONT IV Last administered on 08/01/19at 22:02; Start 08/01/19 at 22:00; Stop 08/02/19 at 21:59; Status DC Furosemide (Lasix) 40 mg 1X ONCE IVP Last administered on 08/01/19at 14:39; Start 08/01/19 at 14:30; Stop 08/01/19 at 14:31; Status DC Metronidazole 100 ml @ 100 mls/hr Q8HRS IV Last administered on 08/09/19at 06:04; Start 08/02/19 at 10:00; Stop 08/09/19 at 08:10; Status DC Sodium Chloride 1,000 ml @ 1,000 mls/hr Q1H PRN IV hypotension; Start 08/02/19 at 08:00; Stop 08/02/19 at 13:59; Status DC Albumin Human 200 ml @ 200 mls/hr 1X PRN PRN IV Hypotension; Start 08/02/19 at 08:00; Stop 08/02/19 at 13:59; Status DC Sodium Chloride 1,000 ml @ 400 mls/hr Q2H30M PRN IV PATENCY; Start 08/02/19 at 08:00; Stop 08/02/19 at 19:59; Status DC Info (PHARMACY MONITORING -- do not chart) 1 each PRN DAILY PRN MC SEE COMMENTS; Start 08/02/19 at 11:30; Status UNV Info (PHARMACY MONITORING -- do not chart) 1 each PRN DAILY PRN MC SEE COMMENTS; Start 08/02/19 at 11:30; Stop 08/04/19 at 12:13; Status DC Sodium Chloride 100 meq/Potassium Phosphate 19 mmol/ Magnesium Sulfate 12 meq/Calcium Gluconate 15 meq/ Multivitamins 10 ml/Chromium/ Copper/Manganese/ Seleni/Zn 0.5 ml/ Insulin Human Regular 40 unit/ Potassium Chloride 20 meq/ Total Parenteral Nutrition/Amino Acids/Dextrose/ Fat Emulsion Intravenous 1,400 ml @ 58.333 mls/ hr TPN CONT IV Last administered on 08/02/19at 21:52; Start 08/02/19 at 22:00; Stop 08/03/19 at 21:59; Status DC Sodium Chloride (Normal Saline Flush) 10 ml QSHIFT PRN IV AFTER MEDS AND BLOOD DRAWS; Start 08/02/19 at 15:00; Stop 08/30/19 at 11:27; Status DC Sodium Chloride (Normal Saline Flush) 10 ml PRN Q5MIN PRN IV AFTER MEDS AND BLOOD DRAWS; Start 08/02/19 at 15:00 Sodium Chloride (Normal Saline Flush) 20 ml PRN Q5MIN PRN IV AFTER MEDS AND BLOOD DRAWS; Start 08/02/19 at 15:00 Sodium Chloride 100 meq/Potassium Phosphate 19 mmol/ Magnesium Sulfate 12 meq/Calcium Gluconate 15 meq/ Multivitamins 10 ml/Chromium/ Copper/Manganese/ Seleni/Zn 0.5 ml/ Insulin Human Regular 40 unit/ Potassium Chloride 20 meq/ Total Parenteral Nutrition/Amino Acids/Dextrose/ Fat Emulsion Intravenous 1,400 ml @ 58.333 mls/ hr TPN CONT IV Last administered on 08/03/19at 21:20; Start 08/03/19 at 22:00; Stop 08/04/19 at 21:59; Status DC Lidocaine HCl (Buffered Lidocaine 1%) 3 ml STK-MED ONCE .ROUTE ; Start 08/03/19 at 13:16; Stop 08/03/19 at 13:16; Status DC Lidocaine HCl (Buffered Lidocaine 1%) 6 ml 1X ONCE INJ Last administered on 08/03/19at 13:45; Start 08/03/19 at 13:30; Stop 08/03/19 at 13:31; Status DC Albumin Human 100 ml @ 100 mls/hr 1X ONCE IV Last administered on 08/03/19at 15:41; Start 08/03/19 at 15:00; Stop 08/03/19 at 15:59; Status DC Albumin Human 50 ml @ 50 mls/hr 1X ONCE IV Last administered on 08/03/19at 15:00; Start 08/03/19 at 15:00; Stop 08/03/19 at 15:59; Status DC Info (PHARMACY MONITORING -- do not chart) 1 each PRN DAILY PRN MC SEE COMMENTS; Start 08/04/19 at 11:30; Status Cancel Info (PHARMACY MONITORING -- do not chart) 1 each PRN DAILY PRN MC SEE COMMENTS; Start 08/04/19 at 11:30; Status UNV Sodium Chloride 100 meq/Potassium Phosphate 10 mmol/ Magnesium Sulfate 12 meq/Calcium Gluconate 15 meq/ Multivitamins 10 ml/Chromium/ Copper/Manganese/ Seleni/Zn 0.5 ml/ Insulin Human Regular 35 unit/ Potassium Chloride 20 meq/ Total Parenteral Nutrition/Amino Acids/Dextrose/ Fat Emulsion Intravenous 1,400 ml @ 58.333 mls/ hr TPN CONT IV Last administered on 08/04/19at 22:10; Start 08/04/19 at 22:00; Stop 08/05/19 at 21:59; Status DC Sodium Chloride 100 meq/Potassium Phosphate 5 mmol/ Magnesium Sulfate 12 meq/Calcium Gluconate 15 meq/ Multivitamins 10 ml/Chromium/ Copper/Manganese/ Seleni/Zn 0.5 ml/ Insulin Human Regular 35 unit/ Potassium Chloride 20 meq/ Total Parenteral Nutrition/Amino Acids/Dextrose/ Fat Emulsion Intravenous 1,400 ml @ 58.333 mls/ hr TPN CONT IV Last administered on 08/05/19at 22:59; Start 08/05/19 at 22:00; Stop 08/06/19 at 21:59; Status DC Sodium Chloride 1,000 ml @ 1,000 mls/hr Q1H PRN IV hypotension; Start 08/06/19 at 08:27; Stop 08/06/19 at 14:26; Status DC Albumin Human 200 ml @ 200 mls/hr 1X PRN PRN IV Hypotension Last administered on 08/06/19at 09:18; Start 08/06/19 at 08:30; Stop 08/06/19 at 14:29; Status DC Sodium Chloride 1,000 ml @ 400 mls/hr Q2H30M PRN IV PATENCY; Start 08/06/19 at 08:27; Stop 08/06/19 at 20:26; Status DC Info (PHARMACY MONITORING -- do not chart) 1 each PRN DAILY PRN MC SEE COMMENTS; Start 08/06/19 at 08:30; Status Cancel Info (PHARMACY MONITORING -- do not chart) 1 each PRN DAILY PRN MC SEE COMMENTS; Start 08/06/19 at 08:30; Stop 08/14/19 at 13:10; Status DC Sodium Chloride 100 meq/Potassium Chloride 40 meq/ Magnesium Sulfate 15 meq/Calcium Gluconate 15 meq/ Multivitamins 10 ml/Chromium/ Copper/Manganese/ Seleni/Zn 0.5 ml/ Insulin Human Regular 35 unit/ Total Parenteral Nutrition/Amino Acids/Dextrose/ Fat Emulsion Intravenous 1,400 ml @ 58.333 mls/ hr TPN CONT IV Last administered on 08/06/19at 22:00; Start 08/06/19 at 22:00; Stop 08/07/19 at 21:59; Status DC Potassium Chloride/Water 100 ml @ 100 mls/hr 1X ONCE IV Last administered on 08/06/19at 17:28; Start 08/06/19 at 14:45; Stop 08/06/19 at 15:44; Status DC Sodium Chloride 100 meq/Potassium Chloride 40 meq/ Magnesium Sulfate 15 meq/Calcium Gluconate 15 meq/ Multivitamins 10 ml/Chromium/ Copper/Manganese/ Seleni/Zn 0.5 ml/ Insulin Human Regular 35 unit/ Total Parenteral Nutrition/Amino Acids/Dextrose/ Fat Emulsion Intravenous 1,400 ml @ 58.333 mls/ hr TPN CONT IV Last administered on 08/07/19at 22:46; Start 08/07/19 at 22:00; Stop 08/08/19 at 21:59; Status DC Sodium Chloride 100 meq/Potassium Chloride 40 meq/ Magnesium Sulfate 20 meq/Calcium Gluconate 15 meq/ Multivitamins 10 ml/Chromium/ Copper/Manganese/ S thien/Zn 0.5 ml/ Insulin Human Regular 35 unit/ Total Parenteral Nutrition/Amino Acids/Dextrose/ Fat Emulsion Intravenous 1,400 ml @ 58.333 mls/ hr TPN CONT IV Last administered on 08/08/19at 22:31; Start 08/08/19 at 22:00; Stop 08/09/19 at 21:59; Status DC Fentanyl Citrate (Fentanyl 2ml Vial) 50 mcg PRN Q2HR PRN IVP PAIN Last administered on 08/15/19at 13:32; Start 08/08/19 at 21:00; Stop 08/16/19 at 12:53; Status DC Fentanyl Citrate (Fentanyl 2ml Vial) 25 mcg PRN Q2HR PRN IVP PAIN; Start 08/08/19 at 21:00; Stop 08/16/19 at 12:54; Status DC Enoxaparin Sodium (Lovenox 100mg Syringe) 100 mg Q12HR SQ ; Start 08/09/19 at 21:00; Status UNV Amino Acids/ Glycerin/ Electrolytes 1,000 ml @ 75 mls/hr [id number] IV ; Start 08/08/19 at 21:15; Status UNV Sodium Chloride 1,000 ml @ 1,000 mls/hr Q1H PRN IV hypotension; Start 08/09/19 at 07:56; Stop 08/09/19 at 13:55; Status DC Albumin Human 200 ml @ 200 mls/hr 1X PRN PRN IV Hypotension Last administered on 08/09/19at 08:40; Start 08/09/19 at 08:00; Stop 08/09/19 at 13:59; Status DC Sodium Chloride 1,000 ml @ 400 mls/hr Q2H30M PRN IV PATENCY; Start 08/09/19 at 07:56; Stop 08/09/19 at 19:55; Status DC Info (PHARMACY MONITORING -- do not chart) 1 each PRN DAILY PRN MC SEE COMMENTS; Start 08/09/19 at 08:00; Status UNV Info (PHARMACY MONITORING -- do not chart) 1 each PRN DAILY PRN MC SEE COMMENTS; Start 08/09/19 at 08:00; Status UNV Daptomycin 430 mg/ Sodium Chloride 50 ml @ 100 mls/hr Q24H IV Last administered on 08/09/19at 12:35; Start 08/09/19 at 09:00; Stop 08/09/19 at 12:49; Status DC Sodium Chloride 100 meq/Potassium Chloride 40 meq/ Magnesium Sulfate 20 meq/Calcium Gluconate 15 meq/ Multivitamins 10 ml/Chromium/ Copper/Manganese/ Seleni/Zn 0.5 ml/ Insulin Human Regular 35 unit/ Total Parenteral Nutrition/ Amino Acids/Dextrose/ Fat Emulsion Intravenous 1,400 ml @ 58.333 mls/ hr TPN CONT IV Last administered on 08/09/19at 21:26; Start 08/09/19 at 22:00; Stop 08/10/19 at 21:59; Status DC Daptomycin 430 mg/ Sodium Chloride 50 ml @ 100 mls/hr Q48H IV ; Start 08/11/19 at 09:00; Stop 08/10/19 at 11:55; Status DC Sodium Chloride 100 meq/Potassium Chloride 40 meq/ Magnesium Sulfate 20 m eq/Calcium Gluconate 15 meq/ Multivitamins 10 ml/Chromium/ Copper/Manganese/ Seleni/Zn 0.5 ml/ Insulin Human Regular 35 unit/ Total Parenteral Nutrition/Amino Acids/Dextrose/ Fat Emulsion Intravenous 1,400 ml @ 58.333 mls/ hr TPN CONT IV Last administered on 08/10/19at 22:27; Start 08/10/19 at 22:00; Stop 08/11/19 at 21:59; Status DC Daptomycin 430 mg/ Sodium Chloride 50 ml @ 100 mls/hr Q24H IV Last administered on 08/12/19at 15:07; Start 08/10/19 at 13:00; Stop 08/13/19 at 13:15; Status DC Sodium Chloride 100 meq/Potassium Chloride 40 meq/ Magnesium Sulfate 20 meq/Calcium Gluconate 10 meq/ Multivitamins 10 ml/Chromium/ Copper/Manganese/ Seleni/Zn 0.5 ml/ Insulin Human Regular 35 unit/ Total Parenteral Nutrition/Amino Acids/Dextrose/ Fat Emulsion Intravenous 1,400 ml @ 58.333 mls/ hr TPN CONT IV Last administered on 08/12/19at 00:06; Start 08/11/19 at 22:00; Stop 08/12/19 at 21:59; Status DC Alteplase, Recombinant (Cathflo For Central Catheter Clearance) 1 mg 1X ONCE INT CAT Last administered on 08/12/19at 11:44; Start 08/12/19 at 10:45; Stop 08/12/19 at 10:46; Status DC Ondansetron HCl (Zofran) 4 mg PRN Q6HRS PRN IV NAUSEA/VOMITING; Start 08/15/19 at 07:00; Stop 08/16/19 at 06:59; Status DC Fentanyl Citrate (Fentanyl 2ml Vial) 25 mcg PRN Q5MIN PRN IV MILD PAIN 1-3; Start 08/15/19 at 07:00; Stop 08/16/19 at 06:59; Status DC Fentanyl Citrate (Fentanyl 2ml Vial) 50 mcg PRN Q5MIN PRN IV MODERATE TO SEVERE PAIN Last administered on 08/15/19at 10:17; Start 08/15/19 at 07:00; Stop 08/16/19 at 06:59; Status DC Ringer's Solution 1,000 ml @ 30 mls/hr Q24H IV ; Start 08/15/19 at 07:00; Stop 08/15/19 at 18:59; Status DC Lidocaine HCl (Xylocaine-Mpf 1% 2ml Vial) 2 ml PRN 1X PRN ID PRIOR TO IV START; Start 08/15/19 at 07:00; Stop 08/16/19 at 06:59; Status DC Prochlorperazine Edisylate (Compazine) 5 mg PACU PRN PRN IV NAUSEA, MRX1; Start 08/15/19 at 07:00; Stop 08/16/19 at 06:59; Status DC Sodium Acetate 50 meq/Potassium Acetate 55 meq/ Magnesium Sulfate 20 meq/Calcium Gluconate 10 meq/ Multivitamins 10 ml/Chromium/ Copper/Manganese/ Seleni/Zn 0.5 ml/ Insulin Human Regular 35 unit/ Total Parenteral Nutrition/Amino Acids/Dextrose/ Fat Emulsion Intravenous 1,400 ml @ 58.333 mls/ hr TPN CONT IV ; Start 08/12/19 at 22:00; Stop 08/12/19 at 14:15; Status DC Sodium Acetate 50 meq/Potassium Acetate 55 meq/ Magnesium Sulfate 20 meq/Calcium Gluconate 10 meq/ Multivitamins 10 ml/Chromium/ Copper/Manganese/ Seleni/Zn 0.5 ml/ Insulin Human Regular 35 unit/ Total Parenteral Nutrition/Amino Acids/Dextrose/ Fat Emulsion Intravenous 1,800 ml @ 75 mls/hr TPN CONT IV Last administered on 08/12/19at 22:38; Start 08/12/19 at 22:00; Stop 08/13/19 at 21:59; Status DC Sodium Chloride 1,000 ml @ 1,000 mls/hr Q1H PRN IV hypotension; Start 08/12/19 at 15:31; Stop 08/12/19 at 21:30; Status DC Diphenhydramine HCl (Benadryl) 25 mg 1X PRN PRN IV ITCHING; Start 08/12/19 at 15:45; Stop 08/13/19 at 15:44; Status DC Diphenhydramine HCl (Benadryl) 25 mg 1X PRN PRN IV ITCHING; Start 08/12/19 at 15:45; Stop 08/13/19 at 15:44; Status DC Sodium Chloride 1,000 ml @ 400 mls/hr Q2H30M PRN IV PATENCY; Start 08/12/19 at 15:31; Stop 08/13/19 at 03:30; Status DC Info (PHARMACY MONITORING -- do not chart) 1 each PRN DAILY PRN MC SEE COMMENTS; Start 08/12/19 at 15:45; Stop 09/13/19 at 14:14; Status DC Sodium Acetate 50 meq/Potassium Acetate 55 meq/ Magnesium Sulfate 20 meq/Calcium Gluconate 10 meq/ Multivitamins 10 ml/Chromium/ Copper/Manganese/ Seleni/Zn 0.5 ml/ Insulin Human Regular 35 unit/ Total Parenteral Nutrition/Amino Acids/Dextrose/ Fat Emulsion Intravenous 1,800 ml @ 75 mls/hr TPN CONT IV Last administered on 08/13/19at 22:03; Start 08/13/19 at 22:00; Stop 08/14/19 at 21:59; Status DC Daptomycin 430 mg/ Sodium Chloride 50 ml @ 100 mls/hr Q24H IV Last administered on 08/18/19at 13:00; Start 08/13/19 at 13:00; Stop 08/18/19 at 20:58; Status DC Heparin Sodium (Porcine) 1000 unit/Sodium Chloride 1,001 ml @ 1,001 mls/hr 1X ONCE IRR ; Start 08/15/19 at 06:00; Stop 08/15/19 at 06:59; Status DC Potassium Acetate 55 meq/Magnesium Sulfate 20 meq/ Calcium Gluconate 10 meq/ Multivitamins 10 ml/Chromium/ Copper/Manganese/ Seleni/Zn 0.5 ml/ Insulin Human Regular 35 unit/ Total Parenteral Nutrition/Amino Acids/Dextrose/ Fat Emulsion Intravenous 1,920 ml @ 80 mls/hr TPN CONT IV Last administered on 08/14/19at 22:10; Start 08/14/19 at 22:00; Stop 08/15/19 at 21:59; Status DC Dexamethasone Sodium Phosphate (Decadron) 4 mg STK-MED ONCE .ROUTE ; Start 08/15/19 at 10:56; Stop 08/15/19 at 10:57; Status DC Ondansetron HCl (Zofran) 4 mg STK-MED ONCE .ROUTE ; Start 08/15/19 at 10:56; Stop 08/15/19 at 10:57; Status DC Rocuronium [place] (Zemuron) 50 mg STK-MED ONCE .ROUTE ; Start 08/15/19 at 10:56; Stop 08/15/19 at 10:57; Status DC Fentanyl Citrate (Fentanyl 2ml Vial) 100 mcg STK-MED ONCE .ROUTE ; Start 08/15/19 at 10:56; Stop 08/15/19 at 10:57; Status DC Bupivacaine HCl/ Epinephrine Bitart (Sensorcain-Epi 0.5%-1:216555 Mpf) 30 ml STK-MED ONCE .ROUTE Last administered on 08/15/19at 12:01; Start 08/15/19 at 10:58; Stop 08/15/19 at 10:58; Status DC Cellulose (Surgicel Hemostat 2x14) 1 each STK-MED ONCE .ROUTE ; Start 08/15/19 at 10:58; Stop 08/15/19 at 10:59; Status DC Iohexol (Omnipaque 300 Mg/ml) 50 ml STK-MED ONCE .ROUTE ; Start 08/15/19 at 10:58; Stop 08/15/19 at 10:59; Status DC Cellulose (Surgicel Hemostat 4x8) 1 each STK-MED ONCE .ROUTE ; Start 08/15/19 at 10:58; Stop 08/15/19 at 10:59; Status DC Bisacodyl (Dulcolax Supp) 10 mg STK-MED ONCE .ROUTE ; Start 08/15/19 at 10:59; Stop 08/15/19 at 10:59; Status DC Heparin Sodium (Porcine) 1000 unit/Sodium Chloride 1,001 ml @ 1,001 mls/hr 1X ONCE IRR ; Start 08/15/19 at 12:00; Stop 08/15/19 at 12:59; Status DC Propofol 20 ml @ As Directed STK-MED ONCE IV ; Start 08/15/19 at 11:05; Stop 08/15/19 at 11:05; Status DC Sevoflurane (Ultane) 90 ml STK-MED ONCE IH ; Start 08/15/19 at 11:05; Stop 08/15/19 at 11:05; Status DC Sevoflurane (Ultane) 60 ml STK-MED ONCE IH ; Start 08/15/19 at 12:26; Stop 08/15/19 at 12:27; Status DC Propofol 20 ml @ As Directed STK-MED ONCE IV ; Start 08/15/19 at 12:26; Stop at 12:27; Status DC Phenylephrine HCl (PHENYLEPHRINE in 0.9% NACL PF) 1 mg STK-MED ONCE IV ; Start 08/15/19 at 12:34; Stop 08/15/19 at 12:34; Status DC Heparin Sodium (Porcine) (Heparin Sodium) 5,000 unit Q12HR SQ Last administered on 08/24/19at 20:57; Start 08/15/19 at 21:00; Stop 08/25/19 at 09:59; Status DC Sodium Chloride (Normal Saline Flush) 3 ml QSHIFT PRN IV AFTER MEDS AND BLOOD DRAWS; Start 08/15/19 at 13:45; Status Cancel Naloxone HCl (Narcan) 0.4 mg PRN Q2MIN PRN IV SEE INSTRUCTIONS Last administered on 09/24/19at 15:15; Start 08/15/19 at 13:45; Stop 10/19/19 at 16:00; Status DC Sodium Chloride 1,000 ml @ 25 mls/hr Q24H IV Last administered on 09/13/19at 13:37; Start 08/15/19 at 13:37; Stop 09/16/19 at 13:09; Status DC Naloxone HCl (Narcan) 0.4 mg PRN Q2MIN PRN IV SEE INSTRUCTIONS; Start 08/15/19 at 14:30; Status UNV Sodium Chloride 1,000 ml @ 25 mls/hr Q24H IV ; Start 08/15/19 at 14:30; Status UNV Hydromorphone HCl 30 ml @ 0 mls/hr CONT PRN PRN IV PER PROTOCOL Last administered on 08/20/19at 16:08; Start 08/15/19 at 14:30; Stop 08/22/19 at 08:55; Status DC Potassium Acetate 55 meq/Magnesium Sulfate 20 meq/ Calcium Gluconate 10 meq/ Multivitamins 10 ml/Chromium/ Copper/Manganese/ Seleni/Zn 0.5 ml/ Insulin Human Regular 35 unit/ Total Parenteral Nutrition/Amino Acids/Dextrose/ Fat Emulsion Intravenous 1,920 ml @ 80 mls/hr TPN CONT IV Last administered on 08/15/19at 22:01; Start 08/15/19 at 22:00; Stop 08/16/19 at 21:59; Status DC Bumetanide (Bumex) 2 mg [id number] IV Last administered on 08/19/19at 13:50; Start 08/16/19 at 14:00; Stop 08/20/19 at 14:10; Status DC Meropenem 1 gm/ Sodium Chloride 100 ml @ 200 mls/hr Q8HRS IV Last administered on 09/09/19at 05:53; Start 08/16/19 at 14:00; Stop 09/09/19 at 09:31; Status DC Potassium Acetate 55 meq/Magnesium Sulfate 20 meq/ Calcium Gluconate 10 meq/ Multivitamins 10 ml/Chromium/ Copper/Manganese/ Seleni/Zn 0.5 ml/ Insulin Human Regular 35 unit/ Total Parenteral Nutrition/Amino Acids/Dextrose/ Fat Emulsion Intravenous 1,920 ml @ 80 mls/hr TPN CONT IV Last administered on 08/16/19at 22:02; Start 08/16/19 at 22:00; Stop 08/17/19 at 21:59; Status DC Hydromorphone HCl (Dilaudid Standard LINOLEUM LAYER) 12 mg STK-MED ONCE IV ; Start 08/15/19 at 14:35; Stop 08/16/19 at 13:53; Status DC Artificial Tears (Artificial Tears) 1 drop PRN Q15MIN PRN OU DRY EYE Last administered on 10/11/19at 21:17; Start 08/17/19 at 05:30 Hydromorphone HCl (Dilaudid Standard LINOLEUM LAYER) 12 mg STK-MED ONCE IV ; Start 08/16/19 at 12:05; Stop 08/17/19 at 09:15; Status DC Potassium Acetate 65 meq/Magnesium Sulfate 20 meq/ Calcium Gluconate 10 meq/ Multivitamins 10 ml/Chromium/ Copper/Manganese/ Seleni/Zn 0.5 ml/ Insulin Human Regular 30 unit/ Total Parenteral Nutrition/Amino Acids/Dextrose/ Fat Emulsion Intravenous 1,920 ml @ 80 mls/hr TPN CONT IV Last administered on 08/17/19at 22:22; Start 08/17/19 at 22:00; Stop 08/18/19 at 21:59; Status DC Cyclobenzaprine HCl (Flexeril) 10 mg PRN Q6HRS PRN PO MUSCLE SPASMS Last administered on 10/28/19at 19:12; Start 08/18/19 at 10:45 Potassium Acetate 55 meq/Magnesium Sulfate 20 meq/ Calcium Gluconate 10 meq/ Multivitamins 10 ml/Chromium/ Copper/Manganese/ Seleni/Zn 0.5 ml/ Insulin Human Regular 30 unit/ Total Parenteral Nutrition/Amino Acids/Dextrose/ Fat Emulsion Intravenous 1,920 ml @ 80 mls/hr TPN CONT IV Last administered on 08/19/19at 01:00; Start 08/18/19 at 22:00; Stop 08/19/19 at 21:59; Status DC Magnesium Sulfate 50 ml @ 25 mls/hr 1X ONCE IV Last administered on 08/18/19at 17:18; Start 08/18/19 at 12:45; Stop 08/18/19 at 14:44; Status DC Potassium Chloride/Water 100 ml @ 100 mls/hr 1X ONCE IV Last administered on 08/19/19at 11:27; Start 08/19/19 at 12:00; Stop 08/19/19 at 12:59; Status DC Hydromorphone HCl (Dilaudid Standard LINOLEUM LAYER) 12 mg STK-MED ONCE IV ; Start 08/17/19 at 10:50; Stop 08/19/19 at 11:02; Status DC Hydromorphone HCl (Dilaudid Standard LINOLEUM LAYER) 12 mg STK-MED ONCE IV ; Start 08/18/19 at 13:47; Stop 08/19/19 at 11:03; Status DC Potassium Acetate 30 meq/Magnesium Sulfate 20 meq/ Calcium Gluconate 10 meq/ Multivitamins 10 ml/Chromium/ Copper/Manganese/ Seleni/Zn 0.5 ml/ Insulin Human Regular 30 unit/ Potassium Chloride 30 meq/ Total Parenteral Nutrition/Amino Acids/Dextrose/ Fat Emulsion Intravenous 1,920 ml @ 80 mls/hr TPN CONT IV Last administered on 08/19/19at 22:34; Start 08/19/19 at 22:00; Stop 08/20/19 at 21:59; Status DC Potassium Chloride/Water 100 ml @ 100 mls/hr Q1H IV Last administered on 08/20/19at 13:05; Start 08/20/19 at 07:00; Stop 08/20/19 at 10:59; Status DC Magnesium Sulfate 50 ml @ 25 mls/hr 1X ONCE IV Last administered on 08/20/19at 10:34; Start 08/20/19 at 10:30; Stop 08/20/19 at 12:29; Status DC Potassium Chloride 75 meq/ Magnesium Sulfate 20 meq/Calcium Gluconate 10 meq/ Multivitamins 10 ml/Chromium/ Copper/Manganese/ Seleni/Zn 0.5 ml/ Insulin Human Regular 30 unit/ Total Parenteral Nutrition/Amino Acids/Dextrose/ Fat Emulsion Intravenous 1,920 ml @ 80 mls/hr TPN CONT IV Last administered on 08/20/19at 21:51; Start 08/20/19 at 22:00; Stop 08/21/19 at 22:00; Status DC Potassium Chloride 75 meq/ Magnesium Sulfate 20 meq/Calcium Gluconate 10 meq/ Multivitamins 10 ml/Chromium/ Copper/Manganese/ Seleni/Zn 0.5 ml/ Insulin Human Regular 25 unit/ Total Parenteral Nutrition/Amino Acids/Dextrose/ Fat Emulsion Intravenous 1,920 ml @ 80 mls/hr TPN CONT IV Last administered on 08/21/19at 2 2:04; Start 08/21/19 at 22:00; Stop 08/22/19 at 21:59; Status DC Hydromorphone HCl (Dilaudid) 0.4 mg PRN Q4HRS PRN IVP PAIN Last administered on 08/22/19at 10:57; Start 08/22/19 at 09:00; Stop 08/22/19 at 18:59; Status DC Micafungin Sodium 100 mg/Dextrose 100 ml @ 100 mls/hr Q24H IV Last administered on 09/13/19at 12:17; Start 08/22/19 at 11:00; Stop 09/14/19 at 09:59; Status DC Daptomycin 485 mg/ Sodium Chloride 50 ml @ 100 mls/hr Q24H IV Last administered on 08/29/19at 13:10; Start 08/22/19 at 11:00; Stop 08/30/19 at 07:44; Status DC Potassium Chloride 75 meq/ Magnesium Sulfate 15 meq/Calcium Gluconate 8 meq/ Multivitamins 10 ml/Chromium/ Copper/Manganese/ Seleni/Zn 0.5 ml/ Insulin Human Regular 25 unit/ Total Parenteral Nutrition/Amino Acids/Dextrose/ Fat Emulsion Intravenous 1,920 ml @ 80 mls/hr TPN CONT IV Last administered on 08/22/19at 23:08; Start 08/22/19 at 22:00; Stop 08/23/19 at 21:59; Status DC Haloperidol Lactate (Haldol Inj) 3 mg 1X ONCE IVP Last administered on 08/22/19at 14:37; Start 08/22/19 at 14:30; Stop 08/22/19 at 14:31; Status DC Hydromorphone HCl (Dilaudid) 1 mg PRN Q4HRS PRN IVP PAIN Last administered on 09/05/19at 06:25; Start 08/22/19 at 19:00; Stop 09/05/19 at 17:10; Status DC Potassium Chloride 75 meq/ Magnesium Sulfate 15 meq/Calcium Gluconate 8 meq/ Multivitamins 10 ml/Chromium/ Copper/Manganese/ Seleni/Zn 0.5 ml/ Insulin Human Regular 20 unit/ Total Parenteral Nutrition/Amino Acids/Dextrose/ Fat Emulsion Intravenous 1,920 ml @ 80 mls/hr TPN CONT IV Last administered on 08/23/19at 22:10; Start 08/23/19 at 22:00; Stop 08/24/19 at 21:59; Status DC Lidocaine HCl (Buffered Lidocaine 1%) 3 ml STK-MED ONCE .ROUTE ; Start 08/24/19 at 11:31; Stop 08/24/19 at 11:31; Status DC Lidocaine HCl (Buffered Lidocaine 1%) 3 ml STK-MED ONCE .ROUTE ; Start 08/24/19 at 12:28; Stop 08/24/19 at 12:29; Status DC Lidocaine HCl (Buffered Lidocaine 1%) 6 ml 1X ONCE INJ Last administered on 08/24/19at 12:53; Start 08/24/19 at 12:45; Stop 08/24/19 at 12:46; Status DC Potassium Chloride 75 meq/ Magnesium Sulfate 15 meq/Calcium Gluconate 8 meq/ Multivitamins 10 ml/Chromium/ Copper/Manganese/ Seleni/Zn 0.5 ml/ Insulin Human Regular 20 unit/ Total Parenteral Nutrition/Amino Acids/Dextrose/ Fat Emulsion Intravenous 1,920 ml @ 80 mls/hr TPN CONT IV Last administered on 08/24/19at 22:00; Start 08/24/19 at 22:00; Stop 08/25/19 at 21:59; Status DC Potassium Chloride 75 meq/ Magnesium Sulfate 15 meq/Calcium Gluconate 8 meq/ Multivitamins 10 ml/Chromium/ Copper/Manganese/ Seleni/Zn 0.5 ml/ Insulin Human Regular 15 unit/ Total Parenteral Nutrition/Amino Acids/Dextrose/ Fat Emulsion Intravenous 1,920 ml @ 80 mls/hr TPN CONT IV Last administered on 08/25/19at 22:28; Start 08/25/19 at 22:00; Stop 08/26/19 at 21:59; Status DC Vecuronium [place] (Norcuron Bolus) 6 mg PRN Q6HRS PRN IV VENT ASYNCHRONY; Start 08/25/19 at 19:15; Stop 08/25/19 at 19:35; Status DC Bumetanide (Bumex) 2 mg 1X ONCE IV Last administered on 08/25/19at 22:09; Start 08/25/19 at 19:45; Stop 08/25/19 at 19:46; Status DC Lidocaine HCl (Buffered Lidocaine 1%) 3 ml STK-MED ONCE .ROUTE ; Start 08/26/19 at 07:59; Stop 08/26/19 at 07:59; Status DC Midazolam HCl (Versed) 5 mg STK-MED ONCE .ROUTE ; Start 08/26/19 at 08:36; Stop 08/26/19 at 08:36; Status DC Fentanyl Citrate (Fentanyl 5ml Vial) 250 mcg STK-MED ONCE .ROUTE ; Start 08/26/19 at 08:36; Stop 08/26/19 at 08:37; Status DC Lidocaine HCl (Buffered Lidocaine 1%) 3 ml 1X ONCE IJ Last administered on 08/26/19at 09:30; Start 08/26/19 at 09:15; Stop 08/26/19 at 09:16; Status DC Midazolam HCl (Versed) 5 mg 1X ONCE IV Last administered on 08/26/19at 09:30; Start 08/26/19 at 09:15; Stop 08/26/19 at 09:16; Status DC Fentanyl Citrate (Fentanyl 5ml Vial) 250 mcg 1X ONCE IV Last administered on 08/26/19at 09:30; Start 08/26/19 at 09:15; Stop 08/26/19 at 09:16; Status DC Bumetanide (Bumex) 2 mg DAILY IV Last administered on 09/05/19at 08:07; Start 08/26/19 at 10:00; Stop 09/05/19 at 17:15; Status DC Potassium Chloride 75 meq/ Magnesium Sulfate 15 meq/ Multivitamins 10 ml/Chromium/ Copper/Manganese/ Seleni/Zn 0.5 ml/ Insulin Human Regular 15 unit/ Total Parenteral Nutrition/Amino Acids/Dextrose/ Fat Emulsion Intravenous 1,920 ml @ 80 mls/hr TPN CONT IV Last administered on 08/26/19at 21:59; Start 08/26/19 at 22:00; Stop 08/27/19 at 21:59; Status DC Metoclopramide HCl (Reglan Vial) 10 mg PRN Q3HRS PRN IVP NAUSEA/VOMITING-3rd choice Last administered on 09/01/19at 04:25; Start 08/27/19 at 16:45 Potassium Chloride 75 meq/ Magnesium Sulfate 15 meq/ Multivitamins 10 ml/Chromium/ Copper/Manganese/ Seleni/Zn 0.5 ml/ Insulin Human Regular 15 unit/ Total Parenteral Nutrition/Amino Acids/Dextrose/ Fat Emulsion Intravenous 1,920 ml @ 80 mls/hr TPN CONT IV Last administered on 08/27/19at 22:41; Start 08/27/19 at 22:00; Stop 08/28/19 at 21:59; Status DC Magnesium Sulfate 50 ml @ 25 mls/hr 1X ONCE IV Last administered on 08/28/19at 10:44; Start 08/28/19 at 09:00; Stop 08/28/19 at 10:59; Status DC Potassium Chloride/Water 100 ml @ 100 mls/hr 1X ONCE IV Last administered on 08/28/19at 09:37; Start 08/28/19 at 09:00; Stop 08/28/19 at 09:59; Status DC Duloxetine HCl (Cymbalta) 30 mg DAILY PO Last administered on 08/29/19at 09:48; Start 08/28/19 at 14:00; Stop 08/31/19 at 10:25; Status DC Potassium Chloride 80 meq/ Magnesium Sulfate 20 meq/ Multivitamins 10 ml/Chromium/ Copper/Manganese/ Seleni/Zn 0.5 ml/ Insulin Human Regular 15 unit/ Total Parenteral Nutrition/Amino Acids/Dextrose/ Fat Emulsion Intravenous 1,920 ml @ 80 mls/hr TPN CONT IV Last administered on 08/28/19at 21:42; Start 08/28/19 at 22:00; Stop 08/29/19 at 21:59; Status DC Potassium Chloride 80 meq/ Magnesium Sulfate 20 meq/ Multivitamins 10 ml/Chromium/ Copper/Manganese/ Seleni/Zn 0.5 ml/ Insulin Human Regular 15 unit/ Total Parenteral Nutrition/Amino Acids/Dextrose/ Fat Emulsion Intravenous 1,920 ml @ 80 mls/hr TPN CONT IV Last administered on 08/29/19at 22:20; Start 08/29/19 at 22:00; Stop 08/30/19 at 21:59; Status DC Lidocaine HCl (Buffered Lidocaine 1%) 3 ml STK-MED ONCE .ROUTE ; Start 08/30/19 at 09:54; Stop 08/30/19 at 09:55; Status DC Hydromorphone HCl (Dilaudid Standard LINOLEUM LAYER) 12 mg STK-MED ONCE IV ; Start 08/19/19 at 15:50; Stop 08/30/19 at 11:24; Status DC Potassium Chloride 80 meq/ Magnesium Sulfate 20 meq/ Multivitamins 10 ml/Chromium/ Copper/Manganese/ Seleni/Zn 0.5 ml/ Insulin Human Regular 15 unit/ Total Parenteral Nutrition/Amino Acids/Dextrose/ Fat Emulsion Intravenous 1,920 ml @ 80 mls/hr TPN CONT IV Last administered on 08/30/19at 21:40; Start 08/30/19 at 22:00; Stop 08/31/19 at 21:59; Status DC Lidocaine HCl (Buffered Lidocaine 1%) 6 ml 1X ONCE INJ Last administered on 08/30/19at 14:15; Start 08/30/19 at 14:15; Stop 08/30/19 at 14:16; Status DC Potassium Chloride 80 meq/ Magnesium Sulfate 20 meq/ Multivitamins 10 ml/Chromium/ Copper/Manganese/ Seleni/Zn 1 ml/ Insulin Human Regular 15 unit/ Total Parenteral Nutrition/Amino Acids/Dextrose/ Fat Emulsion Intravenous 1,920 ml @ 80 mls/hr TPN CONT IV Last administered on 08/31/19at 22:04; Start 08/31/19 at 22:00; Stop 09/01/19 at 21:59; Status DC Potassium Chloride/Water 100 ml @ 100 mls/hr 1X ONCE IV Last administered on 09/01/19at 11:34; Start 09/01/19 at 11:00; Stop 09/01/19 at 11:59; Status DC Potassium Chloride 90 meq/ Magnesium Sulfate 20 meq/ Multivitamins 10 ml/Chromium/ Copper/Manganese/ Seleni/Zn 1 ml/ Insulin Human Regular 15 unit/ Total Parenteral Nutrition/Amino Acids/Dextrose/ Fat Emulsion Intravenous 1,920 ml @ 80 mls/hr TPN CONT IV Last administered on 09/01/19at 22:57; Start 09/01/19 at 22:00; Stop 09/02/19 at 21:59; Status DC Potassium Chloride 90 meq/ Magnesium Sulfate 20 meq/ Multivitamins 10 ml/Chromium/ Copper/Manganese/ Seleni/Zn 1 ml/ Insulin Human Regular 15 unit/ Total Parenteral Nutrition/Amino Acids/Dextrose/ Fat Emulsion Intravenous 1,920 ml @ 80 mls/hr TPN CONT IV Last administered on 09/02/19at 22:48; Start 09/02/19 at 22:00; Stop 09/03/19 at 21:59; Status DC Potassium Chloride 90 meq/ Magnesium Sulfate 20 meq/ Multivitamins 10 ml/Chromium/ Copper/Manganese/ Seleni/Zn 1 ml/ Insulin Human Regular 15 unit/ Total Parenteral Nutrition/Amino Acids/Dextrose/ Fat Emulsion Intravenous 1,890 ml @ 78.75 mls/ hr TPN CONT IV Last administered on 09/03/19at 22:15; Start 09/03/19 at 22:00; Stop 09/04/19 at 21:59; Status DC Linezolid/Dextrose 300 ml @ 300 mls/hr Q12HR IV Last administered on 09/06/19at 21:08; Start 09/04/19 at 09:00; Stop 09/07/19 at 08:11; Status DC Daptomycin 450 mg/ Sodium Chloride 50 ml @ 100 mls/hr Q24H IV Last administered on 09/07/19at 09:25; Start 09/04/19 at 09:00; Stop 09/08/19 at 08:30; Status DC Potassium Chloride 90 meq/ Magnesium Sulfate 20 meq/ Multivitamins 10 ml/Chromi um/ Copper/Manganese/ Seleni/Zn 1 ml/ Insulin Human Regular 15 unit/ Total Parenteral Nutrition/Amino Acids/Dextrose/ Fat Emulsion Intravenous 1,890 ml @ 78.75 mls/ hr TPN CONT IV Last administered on 09/04/19at 21:34; Start 09/04/19 at 22:00; Stop 09/05/19 at 21:59; Status DC Lorazepam (Ativan Inj) 2 mg STK-MED ONCE .ROUTE ; Start 09/04/19 at 14:58; Stop 09/04/19 at 14:58; Status DC Metoprolol Tartrate (Lopressor Vial) 5 mg 1X ONCE IVP Last administered on 09/04/19at 15:31; Start 09/04/19 at 15:15; Stop 09/04/19 at 15:16; Status DC Lorazepam (Ativan Inj) 2 mg 1X ONCE IVP Last administered on 09/04/19at 15:30; Start 09/04/19 at 15:15; Stop 09/04/19 at 15:16; Status DC Enoxaparin Sodium (Lovenox 40mg Syringe) 40 mg Q24H SQ Last administered on 09/23/19at 17:44; Start 09/04/19 at 17:00; Stop 09/25/19 at 06:50; Status DC Lorazepam (Ativan Inj) 1 mg PRN Q4HRS PRN IVP ANXIETY / AGITATION MILD-MOD Last administered on 09/18/19at 15:55; Start 09/04/19 at 19:15; Stop 09/20/19 at 11:45; Status DC Lorazepam (Ativan Inj) 2 mg PRN Q4HRS PRN IVP ANXIETY / AGITATION SEVERE Last administered on 09/19/19at 07:55; Start 09/04/19 at 19:15; Stop 09/20/19 at 11:45; Status DC Fentanyl Citrate (Fentanyl 2ml Vial) 50 mcg PRN Q4HRS PRN IVP SEVERE PAIN Last administered on 10/01/19at 05:15; Start 09/05/19 at 13:15; Stop 10/02/19 at 09:29; Status DC Fentanyl Citrate (Fentanyl 2ml Vial) 25 mcg PRN Q4HRS PRN IVP MODERATE PAIN Last administered on 10/01/19at 00:27; Start 09/05/19 at 13:15; Stop 10/02/19 at 09:30; Status DC Potassium Chloride 90 meq/ Magnesium Sulfate 20 meq/ Multivitamins 10 ml/Chromium/ Copper/Manganese/ Seleni/Zn 1 ml/ Insulin Human Regular 15 unit/ Total Parenteral Nutrition/Amino Acids/Dextrose/ Fat Emulsion Intravenous 1,890 ml @ 78.75 mls/ hr TPN CONT IV Last administered on 09/05/19at 22:18; Start 09/05/19 at 22:00; Stop 09/06/19 at 21:59; Status DC Furosemide (Lasix) 40 mg 1X ONCE IVP Last administered on 09/05/19at 21:51; Start 09/05/19 at 21:45; Stop 09/05/19 at 21:48; Status DC Albumin Human 100 ml @ 100 mls/hr 1X PRN PRN IV SEE COMMENTS; Start 09/06/19 at 01:30 Furosemide (Lasix) 40 mg [id number] IVP Last administered on 09/21/19at 08:04; Start 09/06/19 at 14:00; Stop 09/21/19 at 13:07; Status DC Potassium Chloride 90 meq/ Magnesium Sulfate 20 meq/ Multivitamins 10 ml/Chromium/ Copper/Manganese/ Seleni/Zn 1 ml/ Insulin Human Regular 15 unit/ Total Parenteral Nutrition/Amino Acids/Dextrose/ Fat Emulsion Intravenous 1,800 ml @ 75 mls/hr TPN CONT IV Last administered on 09/06/19at 22:31; Start 09/06/19 at 22:00; Stop 09/07/19 at 21:59; Status DC Potassium Chloride 90 meq/ Magnesium Sulfate 20 meq/ Multivitamins 10 ml/Chromium/ Copper/Manganese/ Seleni/Zn 1 ml/ Insulin Human Regular 15 unit/ Total Parenteral Nutrition/Amino Acids/Dextrose/ Fat Emulsion Intravenous 1,800 ml @ 75 mls/hr TPN CONT IV Last administered on 09/07/19at 22:28; Start 09/07/19 at 22:00; Stop 09/08/19 at 21:59; Status DC Potassium Chloride 110 meq/ Magnesium Sulfate 20 meq/ Multivitamins 10 ml/Chromium/ Copper/Manganese/ Seleni/Zn 1 ml/ Insulin Human Regular 15 unit/ Total Parenteral Nutrition/Amino Acids/Dextrose/ Fat Emulsion Intravenous 1,800 ml @ 75 mls/hr TPN CONT IV Last administered on 09/08/19at 22:01; Start 09/08/19 at 22:00; Stop 09/09/19 at 21:59; Status DC Saliva Substitute (Biotene Moisturizing Mouth) 2 spray PRN Q15MIN PRN PO DRY MOUTH; Start 09/08/19 at 11:00 Potassium Chloride 110 meq/ Magnesium Sulfate 20 meq/ Multivitamins 10 ml/Chromium/ Copper/Manganese/ Seleni/Zn 1 ml/ Insulin Human Regular 15 unit/ Total Parenteral Nutrition/Amino Acids/Dextrose/ Fat Emulsion Intravenous 1,800 ml @ 75 mls/hr TPN CONT IV Last administered on 09/09/19at 22:21; Start 09/09/19 at 22:00; Stop 09/10/19 at 21:59; Status DC Potassium Chloride 110 meq/ Magnesium Sulfate 20 meq/ Multivitamins 10 ml/Chromium/ Copper/Manganese/ Seleni/Zn 1 ml/ Insulin Human Regular 15 unit/ Total Parenteral Nutrition/Amino Acids/Dextrose/ Fat Emulsion Intravenous 1,800 ml @ 75 mls/hr TPN CONT IV Last administered on 09/10/19at 22:04; Start 09/10/19 at 22:00; Stop 09/11/19 at 21:59; Status DC Potassium Chloride 110 meq/ Magnesium Sulfate 20 meq/ Multivitamins 10 ml/Chromium/ Copper/Manganese/ Seleni/Zn 1 ml/ Insulin Human Regular 15 unit/ Total Parenteral Nutrition/Amino Acids/Dextrose/ Fat Emulsion Intravenous 1,800 ml @ 75 mls/hr TPN CONT IV Last administered on 09/11/19at 22:48; Start 09/11/19 at 22:00; Stop 09/12/19 at 21:59; Status DC Potassium Chloride 70 meq/ Magnesium Sulfate 20 meq/ Multivitamins 10 ml/Chromium/ Copper/Manganese/ Seleni/Zn 1 ml/ Insulin Human Regular 15 unit/ Total Parenteral Nutrition/Amino Acids/Dextrose/ Fat Emulsion Intravenous 1,800 ml @ 75 mls/hr TPN CONT IV Last administered on 09/12/19at 21:39; Start 09/12/19 at 22:00; Stop 09/13/19 at 21:59; Status DC Meropenem 500 mg/ Sodium Chloride 50 ml @ 100 mls/hr Q6HRS IV Last administered on 09/14/19at 06:02; Start 09/12/19 at 18:00; Stop 09/14/19 at 09:59; Status DC Barium Sulfate (Varibar Thin Liquid Apple) 148 gm 1X ONCE PO ; Start 09/13/19 at 11:45; Stop 09/13/19 at 11:49; Status DC Potassium Chloride 70 meq/ Magnesium Sulfate 20 meq/ Multivitamins 10 ml/Chromium/ Copper/Manganese/ Seleni/Zn 1 ml/ Insulin Human Regular 15 unit/ Total Parenteral Nutrition/Amino Acids/Dextrose/ Fat Emulsion Intravenous 1,800 ml @ 75 mls/hr TPN CONT IV Last administered on 09/13/19at 22:27; Start 09/13/19 at 22:00; Stop 09/14/19 at 21:59; Status DC Piperacillin Sod/ Tazobactam Sod 3.375 gm/Sodium Chloride 50 ml @ 100 mls/hr Q6HRS IV Last administered on 09/22/19at 06:10; Start 09/14/19 at 12:00; Stop 09/22/19 at 07:26; Status DC Potassium Chloride 70 meq/ Magnesium Sulfate 20 meq/ Multivitamins 10 ml/Chromium/ Copper/Manganese/ Seleni/Zn 1 ml/ Insulin Human Regular 15 unit/ Total Parenteral Nutrition/Amino Acids/Dextrose/ Fat Emulsion Intravenous 1,800 ml @ 75 mls/hr TPN CONT IV Last administered on 09/14/19at 22:03; Start 09/14/19 at 22:00; Stop 09/15/19 at 21:59; Status DC Potassium Chloride 70 meq/ Magnesium Sulfate 20 meq/ Multivitamins 10 ml/Chromium/ Copper/Manganese/ Seleni/Zn 1 ml/ Insulin Human Regular 15 unit/ Total Parenteral Nutrition/Amino Acids/Dextrose/ Fat Emulsion Intravenous 1,800 ml @ 75 mls/hr TPN CONT IV Last administered on 09/15/19at 22:33; Start 09/15/19 at 22:00; Stop 09/16/19 at 21:59; Status DC Potassium Chloride 70 meq/ Magnesium Sulfate 20 meq/ Multivitamins 10 ml/Chromium/ Copper/Manganese/ Seleni/Zn 1 ml/ Insulin Human Regular 15 unit/ Total Parenteral Nutrition/Amino Acids/Dextrose/ Fat Emulsion Intravenous 1,800 ml @ 75 mls/hr TPN CONT IV Last administered on 09/16/19at 23:13; Start 09/16/19 at 22:00; Stop 09/17/19 at 21:59; Status DC Potassium Chloride 80 meq/ Magnesium Sulfate 20 meq/ Multivitamins 10 ml/Chromium/ Copper/Manganese/ Seleni/Zn 1 ml/ Insulin Human Regular 15 unit/ Total Parenteral Nutrition/Amino Acids/Dextrose/ Fat Emulsion Intravenous 1,800 ml @ 75 mls/hr TPN CONT IV Last administered on 09/17/19at 22:30; Start 09/17/19 at 22:00; Stop 09/18/19 at 21:59; Status DC Potassium Chloride 80 meq/ Magnesium Sulfate 20 meq/ Multivitamins 10 ml/Chromium/ Copper/Manganese/ Seleni/Zn 1 ml/ Insulin Human Regular 15 unit/ Total Parenteral Nutrition/Amino Acids/Dextrose/ Fat Emulsion Intravenous 1,800 ml @ 75 mls/hr TPN CONT IV Last administered on 09/18/19at 21:54; Start 09/18/19 at 22:00; Stop 09/19/19 at 21:59; Status DC Potassium Chloride/Water 100 ml @ 100 mls/hr 1X ONCE IV Last administered on 09/19/19at 10:15; Start 09/19/19 at 10:00; Stop 09/19/19 at 10:59; Status DC Potassium Chloride 90 meq/ Magnesium Sulfate 20 meq/ Multivitamins 10 m l/Chromium/ Copper/Manganese/ Seleni/Zn 1 ml/ Insulin Human Regular 20 unit/ Total Parenteral Nutrition/Amino Acids/Dextrose/ Fat Emulsion Intravenous 1,800 ml @ 75 mls/hr TPN CONT IV Last administered on 09/19/19at 22:28; Start 09/19/19 at 22:00; Stop 09/20/19 at 21:59; Status DC Potassium Chloride 90 meq/ Magnesium Sulfate 20 meq/ Multivitamins 10 ml/Chromium/ Copper/Manganese/ Seleni/Zn 1 ml/ Insulin Human Regular 20 unit/ Total Parenteral Nutrition/Amino Acids/Dextrose/ Fat Emulsion Intravenous 1,800 ml @ 75 mls/hr TPN CONT IV Last administered on 09/20/19at 22:08; Start 09/20/19 at 22:00; Stop 09/21/19 at 21:59; Status DC Lorazepam (Ativan Inj) 0.25 mg PRN Q4HRS PRN IVP ANXIETY / AGITATION Last administered on 10/30/19at 00:27; Start 09/21/19 at 07:30 Potassium Chloride 90 meq/ Magnesium Sulfate 20 meq/ Multivitamins 10 ml/Chromium/ Copper/Manganese/ Seleni/Zn 1 ml/ Insulin Human Regular 20 unit/ Total Parenteral Nutrition/Amino Acids/Dextrose/ Fat Emulsion Intravenous 1,800 ml @ 75 mls/hr TPN CONT IV Last administered on 09/21/19at 23:13; Start 09/21/19 at 22:00; Stop 09/22/19 at 21:59; Status DC Furosemide (Lasix) 40 mg DAILY IVP Last administered on 09/23/19at 11:14; Start 09/21/19 at 13:30; Stop 09/25/19 at 09:12; Status DC Fluoxetine HCl (PROzac) 20 mg QHS PEG Last administered on 11/04/19at 21:20; Start 09/22/19 at 21:00 Fentanyl (Duragesic 50mcg/ Hr Patch) 1 patch Q72H TD Last administered on 09/22/19at 21:22; Start 09/22/19 at 21:00; Stop 10/01/19 at 12:00; Status DC Potassium Chloride 40 meq/ Potassium Acetate 60 meq/Magnesium Sulfate 10 meq/ Multivitamins 10 ml/Chromium/ Copper/Manganese/ Seleni/Zn 1 ml/ Insulin Human Regular 20 unit/ Total Parenteral Nutrition/Amino Acids/Dextrose/ Fat Emulsion Intravenous 1,800 ml @ 75 mls/hr TPN CONT IV Last administered on 09/23/19at 00:03; Start 09/22/19 at 22:00; Stop 09/23/19 at 21:59; Status DC Potassium Acetate 80 meq/Magnesium Sulfate 5 meq/ Multivitamins 10 ml/Chromium/ Copper/Manganese/ Seleni/Zn 1 ml/ Insulin Human Regular 20 unit/ Total Parenteral Nutrition/Amino Acids/Dextrose/ Fat Emulsion Intravenous 1,920 ml @ 80 mls/hr TPN CONT IV Last administered on 09/23/19at 21:59; Start 09/23/19 at 22:00; Stop 09/24/19 at 21:59; Status DC Potassium Acetate 60 meq/Magnesium Sulfate 5 meq/ Multivitamins 10 ml/Chromium/ Copper/Manganese/ Seleni/Zn 1 ml/ Insulin Human Regular 30 unit/ Total Parenteral Nutrition/Amino Acids/Dextrose/ Fat Emulsion Intravenous 1,920 ml @ 80 mls/hr TPN CONT IV Last administered on 09/24/19at 21:54; Start 09/24/19 at 22:00; Stop 09/25/19 at 21:59; Status DC Norepinephrine Bitartrate 8 mg/ Dextrose 258 ml @ 13.332 mls/ hr CONT PRN IV PER PROTOCOL Last administered on 10/20/19at 09:09; Start 09/25/19 at 06:30 Albumin Human 500 ml @ 125 mls/hr 1X ONCE IV Last administered on 09/25/19at 08:10; Start 09/25/19 at 08:15; Stop 09/25/19 at 12:14; Status DC Potassium Acetate 40 meq/Magnesium Sulfate 5 meq/ Multivitamins 10 ml/Chromium/ Copper/Manganese/ Seleni/Zn 1 ml/ Insulin Human Regular 30 unit/ Total Parenteral Nutrition/Amino Acids/Dextrose/ Fat Emulsion Intravenous 1,920 ml @ 80 mls/hr TPN CONT IV Last administered on 09/25/19at 22:23; Start 09/25/19 at 22:00; Stop 09/26/19 at 21:59; Status DC Meropenem 1 gm/ Sodium Chloride 100 ml @ 200 mls/hr Q8HRS IV ; Start 09/25/19 at 14:00; Status Cancel Meropenem 1 gm/ Sodium Chloride 100 ml @ 200 mls/hr Q8HRS IV Last administered on 09/25/19at 11:04; Start 09/25/19 at 10:00; Stop 09/25/19 at 13:00; Status DC Meropenem 1 gm/ Sodium Chloride 100 ml @ 200 mls/hr Q12HR IV Last administered on 10/13/19at 08:27; Start 09/25/19 at 21:00; Stop 10/13/19 at 08:56; Status DC Sodium Chloride 1,000 ml @ 1,000 mls/hr 1X ONCE IV Last administered on 09/25/19at 11:06; Start 09/25/19 at 10:45; Stop 09/25/19 at 11:44; Status DC Micafungin Sodium 100 mg/Dextrose 100 ml @ 100 mls/hr Q24H IV Last administered on 10/12/19at 12:34; Start 09/25/19 at 11:00; Stop 10/13/19 at 08:56; Status DC Daptomycin 410 mg/ Sodium Chloride 50 ml @ 100 mls/hr Q24H IV Last administered on 09/27/19at 13:33; Start 09/25/19 at 14:00; Stop 09/28/19 at 08:30; Status DC Midazolam HCl (Versed) 2 mg STK-MED ONCE .ROUTE ; Start 09/25/19 at 14:47; Stop 09/25/19 at 14:48; Status DC Fentanyl Citrate (Fentanyl 2ml Vial) 100 mcg STK-MED ONCE .ROUTE ; Start 09/25/19 at 14:47; Stop 09/25/19 at 14:48; Status DC Flumazenil (Romazicon) 0.5 mg STK-MED ONCE IV ; Start 09/25/19 at 14:48; Stop 09/25/19 at 14:48; Status DC Naloxone HCl (Narcan) 0.4 mg STK-MED ONCE .ROUTE ; Start 09/25/19 at 14:48; Stop 09/25/19 at 14:48; Status DC Lidocaine HCl (Lidocaine 1% 20ml Vial) 20 ml STK-MED ONCE .ROUTE ; Start 09/25/19 at 14:48; Stop 09/25/19 at 14:48; Status DC Midazolam HCl (Versed) 2 mg 1X ONCE IV Last administered on 09/25/19at 15:28; Start 09/25/19 at 15:00; Stop 09/25/19 at 15:01; Status DC Fentanyl Citrate (Fentanyl 2ml Vial) 100 mcg 1X ONCE IV Last administered on 09/25/19at 15:28; Start 09/25/19 at 15:00; Stop 09/25/19 at 15:01; Status DC Lidocaine HCl (Lidocaine 1% 20ml Vial) 20 ml 1X ONCE INJ Last administered on 09/25/19at 15:30; Start 09/25/19 at 15:00; Stop 09/25/19 at 15:01; Status DC Sodium Chloride 1,000 ml @ 100 mls/hr Q10H IV Last administered on 10/04/19at 07:30; Start 09/25/19 at 20:00; Stop 10/04/19 at 11:26; Status DC Sodium Bicarbonate (Sodium Bicarb Adult 8.4% Syr) 50 meq 1X ONCE IV Last administered on 09/25/19at 21:47; Start 09/25/19 at 22:00; Stop 09/25/19 at 22:01; Status DC Potassium Acetate 40 meq/Magnesium Sulfate 5 meq/ Multivitamins 10 ml/Chromium/ Copper/Manganese/ Seleni/Zn 1 ml/ Insulin Human Regular 30 unit/ Total Parenteral Nutrition/Amino Acids/Dextrose/ Fat Emulsion Intravenous 1,920 ml @ 80 mls/hr TPN CONT IV Last administered on 09/26/19at 22:28; Start 09/26/19 at 22:00; Stop 09/27/19 at 21:59; Status DC Sodium Chloride 500 ml @ 500 mls/hr 1X ONCE IV Last administered on 09/27/19at 06:39; Start 09/27/19 at 06:45; Stop 09/27/19 at 07:44; Status DC Potassium Acetate 40 meq/Magnesium Sulfate 5 meq/ Multivitamins 10 ml/Chromium/ Copper/Manganese/ Seleni/Zn 1 ml/ Insulin Human Regular 30 unit/ Total Parenteral Nutrition/Amino Acids/Dextrose/ Fat Emulsion Intravenous 1,920 ml @ 80 mls/hr TPN CONT IV Last administered on 09/27/19at 22:03; Start 09/27/19 at 22:00; Stop 09/28/19 at 21:59; Status DC Metoprolol Tartrate (Lopressor Vial) 5 mg PRN Q6HRS PRN IVP HYPERTENSION Last administered on 10/30/19at 18:01; Start 09/28/19 at 09:00 Potassium Acetate 40 meq/Magnesium Sulfate 5 meq/ Multivitamins 10 ml/Chromium/ Copper/Manganese/ Seleni/Zn 1 ml/ Insulin Human Regular 30 unit/ Total Parenteral Nutrition/Amino Acids/Dextrose/ Fat Emulsion Intravenous 1,920 ml @ 80 mls/hr TPN CONT IV Last administered on 09/28/19at 21:26; Start 09/28/19 at 22:00; Stop 09/29/19 at 21:59; Status DC Potassium Acetate 40 meq/Magnesium Sulfate 5 meq/ Multivitamins 10 ml/Chromium/ Copper/Manganese/ Seleni/Zn 1 ml/ Insulin Human Regular 30 unit/ Total Parenteral Nutrition/Amino Acids/Dextrose/ Fat Emulsion Intravenous 1,920 ml @ 80 mls/hr TPN CONT IV Last administered on 09/29/19at 23:23; Start 09/29/19 at 22:00; Stop 09/30/19 at 21:59; Status DC Potassium Acetate 40 meq/Magnesium Sulfate 5 meq/ Multivitamins 10 ml/Chromium/ Copper/Manganese/ Seleni/Zn 1 ml/ Insulin Human Regular 30 unit/ Total Parenteral Nutrition/Amino Acids/Dextrose/ Fat Emulsion Intravenous 1,920 ml @ 80 mls/hr TPN CONT IV Last administered on 09/30/19at 21:35; Start 09/30/19 at 22:00; Stop 10/01/19 at 21:59; Status DC Furosemide (Lasix) 20 mg 1X ONCE IVP Last administered on 10/01/19at 06:26; Start 10/01/19 at 06:15; Stop 10/01/19 at 06:16; Status DC Methylprednisolone Sodium Succinate (SOLU-Medrol 125MG VIAL) 125 mg 1X ONCE IV Last administered on 10/01/19at 06:26; Start 10/01/19 at 06:15; Stop 10/01/19 at 06:16; Status DC Albuterol/ Ipratropium (Duoneb) 3 ml Q4HRS NEB Last administered on 11/05/19at 08:53; Start 10/01/19 at 08:00 Fentanyl Citrate 30 ml @ 0 mls/hr CONT PRN IV SEE PROTOCOL Last administered on 10/22/19at 08:03; Start 10/01/19 at 06:00; Stop 10/22/19 at 12:42; Status DC Propofol 100 ml @ 0 mls/hr CONT PRN IV SEE PROTOCOL Last administered on 10/08/19at 23:50; Start 10/01/19 at 06:00 Fentanyl Citrate (Fentanyl 2ml Vial) 25 mcg PRN Q1HR PRN IV SEE COMMENTS Last administered on 11/04/19at 18:08; Start 10/01/19 at 06:00 Fentanyl Citrate (Fentanyl 2ml Vial) 50 mcg PRN Q1HR PRN IV SEE COMMENTS Last administered on 10/30/19at 18:02; Start 10/01/19 at 06:00 Chlorhexidine Gluconate (Peridex) 15 ml BID MM ; Start 10/01/19 at 09:00; Stop 10/01/19 at 07:58; Status DC Potassium Acetate 40 meq/Magnesium Sulfate 5 meq/ Multivitamins 10 ml/Chromium/ Copper/Manganese/ Seleni/Zn 1 ml/ Insulin Human Regular 30 unit/ Total Parenteral Nutrition/Amino Acids/Dextrose/ Fat Emulsion Intravenous 1,920 ml @ 80 mls/hr TPN CONT IV Last administered on 10/01/19at 21:19; Start 10/01/19 at 22:00; Stop 10/02/19 at 21:59; Status DC Acetylcysteine (Mucomyst 20% Resp Treatment) 600 mg BID NEB Last administered on 10/07/19at 09:33; Start 10/01/19 at 21:00; Stop 10/07/19 at 10:39; Status DC Magnesium Sulfate 100 ml @ 25 mls/hr 1X ONCE IV Last administered on 10/01/19at 15:48; Start 10/01/19 at 15:45; Stop 10/01/19 at 19:44; Status DC Potassium Acetate 40 meq/Magnesium Sulfate 5 meq/ Multivitamins 10 ml/Chromium/ Copper/Manganese/ Seleni/Zn 1 ml/ Insulin Human Regular 30 unit/ Total Parenteral Nutrition/Amino Acids/Dextrose/ Fat Emulsion Intravenous 1,920 ml @ 80 mls/hr TPN CONT IV Last administered on 10/02/19at 21:35; Start 10/02/19 at 22:00; Stop 10/03/19 at 21:59; Status DC Potassium Chloride/Water 100 ml @ 100 mls/hr Q1H IV Last administered on 10/03/19at 08:31; Start 10/03/19 at 07:00; Stop 10/03/19 at 08:59; Status DC Potassium Acetate 40 meq/Magnesium Sulfate 5 meq/ Multivitamins 10 ml/Chromium/ Copper/Manganese/ Seleni/Zn 1 ml/ Insulin Human Regular 30 unit/ Total Parenteral Nutrition/Amino Acids/Dextrose/ Fat Emulsion Intravenous 1,920 ml @ 80 mls/hr TPN CONT IV Last administered on 10/03/19at 21:54; Start 10/03/19 at 22:00; Stop 10/04/19 at 19:34; Status DC Lidocaine HCl (Buffered Lidocaine 1%) 3 ml STK-MED ONCE .ROUTE ; Start 10/03/19 at 12:14; Stop 10/03/19 at 12:14; Status DC Lidocaine HCl (Buffered Lidocaine 1%) 3 ml 1X ONCE IJ Last administered on 10/03/19at 13:11; Start 10/03/19 at 13:00; Stop 10/03/19 at 13:01; Status DC Magnesium Sulfate 50 ml @ 25 mls/hr 1X ONCE IV ; Start 10/04/19 at 08:15; Stop 10/04/19 at 10:14; Status DC Potassium Acetate 40 meq/Magnesium Sulfate 10 meq/ Multivitamins 10 ml/Chromium/ Copper/Manganese/ Seleni/Zn 1 ml/ Insulin Human Regular 20 unit/ Total Paren teral Nutrition/Amino Acids/Dextrose/ Fat Emulsion Intravenous 1,920 ml @ 80 mls/hr TPN CONT IV Last administered on 10/04/19at 21:32; Start 10/04/19 at 22:00; Stop 10/05/19 at 21:59; Status DC Potassium Chloride/Water 100 ml @ 100 mls/hr Q1H IV Last administered on 10/05/19at 09:12; Start 10/05/19 at 08:00; Stop 10/05/19 at 09:59; Status DC Alteplase, Recombinant (Cathflo For Central Catheter Clearance) 4 mg 1X ONCE INT CAT ; Start 10/05/19 at 09:15; Stop 10/05/19 at 09:16; Status UNV Alteplase, Recombinant (Cathflo For Central Catheter Clearance) 4 mg 1X ONCE INT CAT ; Start 10/05/19 at 09:15; Stop 10/05/19 at 09:16; Status UNV Alteplase, Recombinant (Cathflo For Central Catheter Clearance) 4 mg 1X ONCE INT CAT ; Start 10/05/19 at 09:15; Stop 10/05/19 at 09:16; Status UNV Alteplase, Recombinant 4 mg/ Sodium Chloride 20 ml @ 20 mls/hr 1X ONCE IV Last administered on 10/05/19at 10:10; Start 10/05/19 at 10:00; Stop 10/05/19 at 10:59; Status DC Alteplase, Recombinant 4 mg/ Sodium Chloride 20 ml @ 20 mls/hr 1X ONCE IV Last administered on 10/05/19at 10:09; Start 10/05/19 at 10:00; Stop 10/05/19 at 10:59; Status DC Alteplase, Recombinant 4 mg/ Sodium Chloride 20 ml @ 20 mls/hr 1X ONCE IV Last administered on 10/05/19at 10:09; Start 10/05/19 at 10:00; Stop 10/05/19 at 10:59; Status DC Potassium Acetate 60 meq/Magnesium Sulfate 10 meq/ Multivitamins 10 ml/Chromium/ Copper/Manganese/ Seleni/Zn 1 ml/ Insulin Human Regular 20 unit/ Total Parenteral Nutrition/Amino Acids/Dextrose/ Fat Emulsion Intravenous 1,920 ml @ 80 mls/hr TPN CONT IV Last administered on 10/05/19at 21:55; Start 10/05/19 at 22:00; Stop 10/06/19 at 21:59; Status DC Albumin Human 500 ml @ 125 mls/hr 1X ONCE IV Last administered on 10/06/19at 12:01; Start 10/06/19 at 11:15; Stop 10/06/19 at 15:14; Status DC Sodium Chloride 500 ml @ 500 mls/hr 1X ONCE IV Last administered on 10/06/19at 13:50; Start 10/06/19 at 11:15; Stop 10/06/19 at 12:14; Status DC Potassium Acetate 60 meq/Magnesium Sulfate 14 meq/ Multivitamins 10 ml/Chromium/ Copper/Manganese/ Seleni/Zn 1 ml/ Insulin Human Regular 20 unit/ Total Parenteral Nutrition/Amino Acids/Dextrose/ Fat Emulsion Intravenous 1,920 ml @ 80 mls/hr TPN CONT IV Last administered on 10/06/19at 22:26; Start 10/06/19 at 22:00; Stop 10/07/19 at 21:59; Status DC Ciprofloxacin/ Dextrose 200 ml @ 200 mls/hr Q12HR IV Last administered on 10/13/19at 08:27; Start 10/06/19 at 21:00; Stop 10/13/19 at 08:56; Status DC Albumin Human 250 ml @ 62.5 mls/hr 1X ONCE IV Last administered on 10/07/19at 11:09; Start 10/07/19 at 11:00; Stop 10/07/19 at 14:59; Status DC Furosemide (Lasix) 20 mg 1X ONCE IVP Last administered on 10/07/19at 14:52; Start 10/07/19 at 10:45; Stop 10/07/19 at 10:49; Status DC Potassium Acetate 60 meq/Magnesium Sulfate 14 meq/ Multivitamins 10 ml/Chromium/ Copper/Manganese/ Seleni/Zn 1 ml/ Insulin Human Regular 15 unit/ Total Parenteral Nutrition/Amino Acids/Dextrose/ Fat Emulsion Intravenous 1,920 ml @ 80 mls/hr TPN CONT IV Last administered on 10/07/19at 22:08; Start 10/07/19 at 22:00; Stop 10/08/19 at 21:59; Status DC Potassium Acetate 60 meq/Magnesium Sulfate 14 meq/ Multivitamins 10 ml/Chromium/ Copper/Manganese/ Seleni/Zn 1 ml/ Insulin Human Regular 15 unit/ Total Parenteral Nutrition/Amino Acids/Dextrose/ Fat Emulsion Intravenous 1,920 ml @ 80 mls/hr TPN CONT IV Last administered on 10/08/19at 22:12; Start 10/08/19 at 22:00; Stop 10/09/19 at 21:59; Status DC Potassium Acetate 60 meq/Magnesium Sulfate 14 meq/ Multivitamins 10 ml/Chromium/ Copper/Manganese/ Seleni/Zn 1 ml/ Insulin Human Regular 15 unit/ Total Parenteral Nutrition/Amino Acids/Dextrose/ Fat Emulsion Intravenous 1,920 ml @ 80 mls/hr TPN CONT IV Last administered on 10/09/19at 22:22; Start 10/09/19 at 22:00; Stop 10/10/19 at 21:59; Status DC Furosemide (Lasix) 20 mg 1X ONCE IVP Last administered on 10/10/19at 11:07; Start 10/10/19 at 10:30; Stop 10/10/19 at 10:34; Status DC Potassium Acetate 60 meq/Magnesium Sulfate 14 meq/ Multivitamins 10 ml/Chromium/ Copper/Manganese/ Seleni/Zn 1 ml/ Insulin Human Regular 15 unit/ Sodium Chloride 20 meq/Total Parenteral Nutrition/Amino Acids/Dextrose/ Fat Emulsion Intravenous 1,920 ml @ 80 mls/hr TPN CONT IV Last administered on 10/10/19at 21:54; Start 10/10/19 at 22:00; Stop 10/11/19 at 21:59; Status DC Potassium Acetate 30 meq/Magnesium Sulfate 14 meq/ Multivitamins 10 ml/Chromium/ Copper/Manganese/ Seleni/Zn 1 ml/ Insulin Human Regular 15 unit/ Sodium Chloride 20 meq/Potassium Chloride 30 meq/ Total Parenteral Nutrition/Amino Acids/Dextrose/ Fat Emulsion Intravenous 1,920 ml @ 80 mls/hr TPN CONT IV Last administered on 10/11/19at 21:46; Start 10/11/19 at 22:00; Stop 10/12/19 at 21:59; Status DC Sodium Chloride 80 meq/Potassium Chloride 30 meq/ Potassium Acetate 30 meq/Magnesium Sulfate 14 meq/ Multivitamins 10 ml/Chromium/ Copper/Manganese/ Seleni/Zn 1 ml/ Insulin Human Regular 15 unit/ Total Parenteral Nutrition/Amino Acids/Dextrose/ Fat Emulsion Intravenous 1,920 ml @ 80 mls/hr TPN CONT IV Last administered on 10/12/19at 22:33; Start 10/12/19 at 22:00; Stop 10/13/19 at 21:59; Status DC Furosemide (Lasix) 40 mg 1X ONCE IVP Last administered on 10/12/19at 16:27; Start 10/12/19 at 15:30; Stop 10/12/19 at 15:33; Status DC Albumin Human 250 ml @ 62.5 mls/hr 1X ONCE IV Last administered on 10/12/19at 16:27; Start 10/12/19 at 15:30; Stop 10/12/19 at 19:29; Status DC Sodium Chloride 80 meq/Potassium Chloride 30 meq/ Potassium Acetate 30 meq/Magn esium Sulfate 14 meq/ Multivitamins 10 ml/Chromium/ Copper/Manganese/ Seleni/Zn 1 ml/ Insulin Human Regular 15 unit/ Total Parenteral Nutrition/Amino Acids/Dextrose/ Fat Emulsion Intravenous 1,920 ml @ 80 mls/hr TPN CONT IV Last administered on 10/13/19at 22:25; Start 10/13/19 at 22:00; Stop 10/14/19 at 21:59; Status DC Sodium Chloride 80 meq/Potassium Chloride 30 meq/ Potassium Acetate 30 meq/Magnesium Sulfate 14 meq/ Multivitamins 10 ml/Chromium/ Copper/Manganese/ Seleni/Zn 1 ml/ Insulin Human Regular 15 unit/ Total Parenteral Nutrition/Amino Acids/Dextrose/ Fat Emulsion Intravenous 1,920 ml @ 80 mls/hr TPN CONT IV Last administered on 10/14/19at 21:32; Start 10/14/19 at 22:00; Stop 10/15/19 at 21:59; Status DC Sodium Chloride 80 meq/Potassium Chloride 30 meq/ Potassium Acetate 30 meq/Magnesium Sulfate 14 meq/ Multivitamins 10 ml/Chromium/ Copper/Manganese/ Seleni/Zn 1 ml/ Insulin Human Regular 15 unit/ Total Parenteral Nutrition/Amino Acids/Dextrose/ Fat Emulsion Intravenous 1,920 ml @ 80 mls/hr TPN CONT IV Last administered on 10/15/19at 21:53; Start 10/15/19 at 22:00; Stop 10/16/19 at 21:59; Status DC Acetylcysteine (Mucomyst 20% Resp Treatment) 600 mg RTBID NEB Last administered on 11/05/19at 08:00; Start 10/15/19 at 12:00 Sodium Chloride 80 meq/Potassium Chloride 30 meq/ Potassium Acetate 30 meq/Magnesium Sulfate 14 meq/ Multivitamins 10 ml/Chromium/ Copper/Manganese/ S thien/Zn 1 ml/ Insulin Human Regular 15 unit/ Total Parenteral Nutrition/Amino Acids/Dextrose/ Fat Emulsion Intravenous 1,920 ml @ 80 mls/hr TPN CONT IV Last administered on 10/16/19at 22:06; Start 10/16/19 at 22:00; Stop 10/17/19 at 21:59; Status DC Meropenem 500 mg/ Sodium Chloride 50 ml @ 100 mls/hr Q6HRS IV Last administered on 11/05/19at 05:26; Start 10/16/19 at 18:00 Daptomycin 500 mg/ Sodium Chloride 50 ml @ 100 mls/hr Q24H IV Last administered on 10/24/19at 21:47; Start 10/16/19 at 19:00; Stop 10/25/19 at 08:13; Status DC Sodium Chloride 80 meq/Potassium Chloride 30 meq/ Potassium Acetate 30 meq/Magnesium Sulfate 14 meq/ Multivitamins 10 ml/Chromium/ Copper/Manganese/ Seleni/Zn 1 ml/ Insulin Human Regular 15 unit/ Total Parenteral Nutrition/Amino Acids/Dextrose/ Fat Emulsion Intravenous 1,920 ml @ 80 mls/hr TPN CONT IV Last administered on 10/17/19at 22:09; Start 10/17/19 at 22:00; Stop 10/18/19 at 21:59; Status DC Heparin Sodium (Porcine) 1000 unit/Sodium Chloride 1,001 ml @ 1,001 mls/hr 1X ONCE IRR ; Start 10/18/19 at 06:00; Stop 10/18/19 at 06:59; Status DC Propofol (Diprivan) 200 mg STK-MED ONCE IV ; Start 10/18/19 at 07:44; Stop 10/18/19 at 07:44; Status DC Lidocaine HCl (Lidocaine Pf 2% Vial) 5 ml STK-MED ONCE .ROUTE ; Start 10/18/19 a t 07:44; Stop 10/18/19 at 07:44; Status DC Fentanyl Citrate (Fentanyl 2ml Vial) 100 mcg STK-MED ONCE .ROUTE ; Start 10/18/19 at 07:44; Stop 10/18/19 at 07:44; Status DC Rocuronium [place] (Zemuron) 100 mg STK-MED ONCE .ROUTE ; Start 10/18/19 at 07:44; Stop 10/18/19 at 07:44; Status DC Micafungin Sodium 100 mg/Dextrose 100 ml @ 100 mls/hr Q24H IV Last administered on 11/05/19at 09:37; Start 10/18/19 at 08:30 Bupivacaine HCl/ Epinephrine Bitart (Sensorcain-Epi 0.5%-1:[id number] Mpf) 30 ml STK-MED ONCE .ROUTE ; Start 10/18/19 at 08:34; Stop 10/18/19 at 08:35; Status DC Iohexol (Omnipaque 300 Mg/ml) 50 ml STK-MED ONCE .ROUTE Last administered on 10/18/19at 13:30; Start 10/18/19 at 08:35; Stop 10/18/19 at 08:35; Status DC Sodium Chloride 80 meq/Potassium Chloride 30 meq/ Potassium Acetate 30 meq/Magnesium Sulfate 14 meq/ Multivitamins 10 ml/Chromium/ Copper/Manganese/ Seleni/Zn 1 ml/ Insulin Human Regular 15 unit/ Total Parenteral Nutrition/Amino Acids/Dextrose/ Fat Emulsion Intravenous 1,920 ml @ 80 mls/hr TPN CONT IV Last administered on 10/19/19at 01:22; Start 10/18/19 at 22:00; Stop 10/19/19 at 21:59; Status DC Phenylephrine HCl (Brayden-Synephrine Inj) 10 mg STK-MED ONCE .ROUTE ; Start 10/18/19 at 10:15; Stop 10/18/19 at 10:15; Status DC Desflurane (Suprane) 90 ml STK-MED ONCE IH ; Start 10/18/19 at 10:18; Stop 10/18/19 at 10:19; Status DC Albumin Human 500 ml @ As Directed STK-MED ONCE IV ; Start 10/18/19 at 11:06; Stop 10/18/19 at 11:06; Status DC Vasopressin (Vasostrict) 20 unit STK-MED ONCE .ROUTE ; Start 10/18/19 at 12:23; Stop 10/18/19 at 12:23; Status DC Phenylephrine HCl (Brayden-Synephrine Inj) 10 mg STK-MED ONCE .ROUTE ; Start 10/18/19 at 13:33; Stop 10/18/19 at 13:33; Status DC Phenylephrine HCl (Brayden-Synephrine Inj) 10 mg STK-MED ONCE .ROUTE ; Start 10/18/19 at 13:33; Stop 10/18/19 at 13:33; Status DC Ondansetron HCl (Zofran) 4 mg STK-MED ONCE .ROUTE ; Start 10/18/19 at 13:33; Stop 10/18/19 at 13:33; Status DC Enoxaparin Sodium (Lovenox 40mg Syringe) 40 mg Q24H SQ Last administered on 11/05/19at 09:35; Start 10/19/19 at 08:00 Sodium Chloride (Normal Saline Flush) 3 ml QSHIFT PRN IV AFTER MEDS AND BLOOD DRAWS; Start 10/18/19 at 14:45 Naloxone HCl (Narcan) 0.4 mg PRN Q2MIN PRN IV SEE INSTRUCTIONS; Start 10/18/19 at 14:45 Sodium Chloride 1,000 ml @ 25 mls/hr Q24H IV Last administered on 11/03/19at 14:33; Start 10/18/19 at 14:33 Morphine Sulfate (Morphine Sulfate) 1 mg PRN Q1HR PRN IV PAIN; Start 10/18/19 at 14:45 Midazolam HCl 100 mg/Sodium Chloride 100 ml @ 1 mls/hr CONT PRN IV SEE I/O RECORD Last administered on 10/21/19at 18:48; Start 10/18/19 at 14:45 Phenylephrine HCl (PHENYLEPHRINE in 0.9% NACL PF) 1 mg STK-MED ONCE IV ; Start 10/18/19 at 14:44; Stop 10/18/19 at 14:45; Status DC Ephedrine Sulfate (ePHEDrine PF IN SALINE SYRINGE) 50 mg STK-MED ONCE IV ; Start 10/18/19 at 14:45; Stop 10/18/19 at 14:45; Status DC Vasopressin 20 unit/Dextrose 101 ml @ 12 mls/hr CONT PRN IV SEE I/O RECORD Last administered on 10/25/19at 04:17; Start 10/18/19 at 15:30 Sodium Chloride 1,000 ml @ 1,000 mls/hr 1X ONCE IV Last administered on 10/18/19at 15:42; Start 10/18/19 at 15:45; Stop 10/18/19 at 16:44; Status DC Albumin Human 500 ml @ 125 mls/hr 1X ONCE IV ; Start 10/18/19 at 16:00; Stop 10/18/19 at 19:59; Status DC Albumin Human 500 ml @ 125 mls/hr PRN Q1HR PRN IV PER PROTOCOL; Start 10/18/19 at 15:45 Magnesium Sulfate 50 ml @ 25 mls/hr 1X ONCE IV Last administered on 10/18/19at 17:02; Start 10/18/19 at 16:30; Stop 10/18/19 at 18:29; Status DC Sodium Bicarbonate (Sodium Bicarb Adult 8.4% Syr) 50 meq STK-MED ONCE .ROUTE ; Start 10/18/19 at 16:20; Stop 10/18/19 at 16:20; Status DC Sodium Bicarbonate (Sodium Bicarb Adult 8.4% Syr) 100 meq 1X ONCE IV Last administered on 10/18/19at 17:07; Start 10/18/19 at 16:30; Stop 10/18/19 at 16:31; Status DC Sodium Bicarbonate 150 meq/Dextrose 1,150 ml @ 75 mls/hr 1X ONCE IV Last administered on 10/18/19at 20:02; Start 10/18/19 at 16:30; Stop 10/19/19 at 07:49; Status DC Sodium Chloride 80 meq/Potassium Chloride 30 meq/ Potassium Acetate 30 meq/Magnesium Sulfate 14 meq/ Multivitamins 10 ml/Chromium/ Copper/Manganese/ Seleni/Zn 1 ml/ Insulin Human Regular 15 unit/ Total Parenteral Nutrition/Amino Acids/Dextrose/ Fat Emulsion Intravenous 1,920 ml @ 80 mls/hr TPN CONT IV Last administered on 10/19/19at 23:05; Start 10/19/19 at 22:00; Stop 10/20/19 at 21:59; Status DC Sodium Chloride 100 meq/Potassium Chloride 30 meq/ Potassium Acetate 30 meq/Magnesium Sulfate 12 meq/ Multivitamins 10 ml/Chromium/ Copper/Manganese/ Seleni/Zn 1 ml/ Insulin Human Regular 15 unit/ Total Parenteral Nutrition/Amino Acids/Dextrose/ Fat Emulsion Intravenous 1,920 ml @ 80 mls/hr TPN CONT IV Last administered on 10/20/19at 21:52; Start 10/20/19 at 22:00; Stop 10/21/19 at 21:59; Status DC Sodium Chloride 100 meq/Potassium Chloride 30 meq/ Potassium Acetate 30 meq/Magnesium Sulfate 12 meq/ Multivitamins 10 ml/Chromium/ Copper/Manganese/ Seleni/Zn 1 ml/ Insulin Human Regular 15 unit/ Total Parenteral Nutrition/Amino Acids/Dextrose/ Fat Emulsion Intravenous 1,920 ml @ 80 mls/hr TPN CONT IV Last administered on 10/21/19at 21:46; Start 10/21/19 at 22:00; Stop 10/22/19 at 21:59; Status DC Sodium Chloride 100 meq/Potassium Chloride 30 meq/ Potassium Acetate 30 meq/Magnesium Sulfate 12 meq/ Multivitamins 10 ml/Chromium/ Copper/Manganese/ Seleni/Zn 1 ml/ Insulin Human Regular 15 unit/ Total Parenteral Nutrition/Amino Acids/Dextrose/ Fat Emulsion Intravenous 1,800 ml @ 75 mls/hr TPN CONT IV Last administered on 10/22/19at 22:04; Start 10/22/19 at 22:00; Stop 10/23/19 at 21:59; Status DC Fentanyl Citrate 55 ml @ 0 mls/hr CONT PRN IV SEE COMMENTS Last administered on 10/24/19at 23:55; Start 10/22/19 at 13:00; Stop 10/27/19 at 17:28; Status DC Sodium Chloride 100 meq/Potassium Chloride 30 meq/ Potassium Acetate 30 meq/Magnesium Sulfate 12 meq/ Multivitamins 10 ml/Chromium/ Copper/Manganese/ Seleni/Zn 1 ml/ Insulin Human Regular 15 unit/ Total Parenteral Nutrition/Amino Acids/Dextrose/ Fat Emulsion Intravenous 1,680 ml @ 70 mls/hr TPN CONT IV Last administered on 10/23/19at 21:23; Start 10/23/19 at 22:00; Stop 10/24/19 at 21: 59; Status DC Sodium Chloride 110 meq/Potassium Chloride 30 meq/ Potassium Acetate 30 meq/Magnesium Sulfate 15 meq/ Multivitamins 10 ml/Chromium/ Copper/Manganese/ Seleni/Zn 1 ml/ Insulin Human Regular 15 unit/ Total Parenteral Nutrition/Amino Acids/Dextrose/ Fat Emulsion Intravenous 1,680 ml @ 70 mls/hr TPN CONT IV Last administered on 10/24/19at 21:48; Start 10/24/19 at 22:00; Stop 10/25/19 at 21:59; Status DC Sodium Chloride 110 meq/Potassium Chloride 30 meq/ Potassium Acetate 30 meq/Magnesium Sulfate 15 meq/ Multivitamins 10 ml/Chromium/ Copper/Manganese/ Seleni/Zn 1 ml/ Insulin Human Regular 15 unit/ Total Parenteral Nutrition/Amino Acids/Dextrose/ Fat Emulsion Intravenous 1,680 ml @ 70 mls/hr TPN CONT IV Last administered on 10/25/19at 21:33; Start 10/25/19 at 22:00; Stop 10/26/19 at 21:59; Status DC Sodium Chloride 110 meq/Potassium Chloride 30 meq/ Potassium Acetate 30 meq/M agnesium Sulfate 15 meq/ Multivitamins 10 ml/Chromium/ Copper/Manganese/ Seleni/Zn 1 ml/ Insulin Human Regular 15 unit/ Total Parenteral Nutrition/Amino Acids/Dextrose/ Fat Emulsion Intravenous 1,680 ml @ 70 mls/hr TPN CONT IV Last administered on 10/26/19at 21:51; Start 10/26/19 at 22:00; Stop 10/27/19 at 21:59; Status DC Sodium Chloride 90 meq/Potassium Chloride 30 meq/ Potassium Acetate 30 meq/Magnesium Sulfate 15 meq/ Multivitamins 10 ml/Chromium/ Copper/Manganese/ Seleni/Zn 1 ml/ Insulin Human Regular 15 unit/ Total Parenteral Nutrition/Amino Acids/Dextrose/ Fat Emulsion Intravenous 1,680 ml @ 70 mls/hr TPN CONT IV Last administered on 10/27/19at 22:38; Start 10/27/19 at 22:00; Stop 10/28/19 at 21:59; Status DC Fentanyl Citrate 30 ml @ 0 mls/hr CONT PRN IV SEE I/O RECORD; Start 10/27/19 at 17:30 Fentanyl (Duragesic 12mcg/ Hr Patch) 1 patch Q3DAYS TD Last administered on 11/03/19at 08:27; Start 10/28/19 at 09:00 Sodium Chloride 90 meq/Potassium Chloride 30 meq/ Potassium Acetate 30 meq/Magnesium Sulfate 15 meq/ Multivitamins 10 ml/Chromium/ Copper/Manganese/ Seleni/Zn 1 ml/ Insulin Human Regular 15 unit/ Total Parenteral Nutrition/Amino Acids/Dextrose/ Fat Emulsion Intravenous 1,680 ml @ 70 mls/hr TPN CONT IV Last administered on 10/28/19at 21:59; Start 10/28/19 at 22:00; Stop 10/29/19 at 21:59; Status DC Sodium Chloride 90 meq/Potassium Chloride 30 meq/ Potassium Acetate 30 me q/Magnesium Sulfate 15 meq/ Multivitamins 10 ml/Chromium/ Copper/Manganese/ Seleni/Zn 1 ml/ Insulin Human Regular 15 unit/ Total Parenteral Nutrition/Amino Acids/Dextrose/ Fat Emulsion Intravenous 1,680 ml @ 70 mls/hr TPN CONT IV Last administered on 10/29/19at 21:35; Start 10/29/19 at 22:00; Stop 10/30/19 at 21:59; Status DC Vancomycin HCl (Vanco Per Pharmacy) 1 each PRN DAILY PRN MC SEE COMMENTS Last administered on 11/01/19at 02:46; Start 10/30/19 at 09:15; Stop 11/02/19 at 07:41; Status DC Ciprofloxacin/ Dextrose 200 ml @ 200 mls/hr Q12HR IV Last administered on 11/05/19at 09:37; Start 10/30/19 at 10:00 Vancomycin HCl 2 gm/Sodium Chloride 500 ml @ 250 mls/hr 1X ONCE IV Last administered on 10/30/19at 10:34; Start 10/30/19 at 10:00; Stop 10/30/19 at 11:59; Status DC Sodium Chloride 90 meq/Potassium Chloride 30 meq/ Potassium Acetate 30 meq/Magnesium Sulfate 15 meq/ Multivitamins 10 ml/Chromium/ Copper/Manganese/ Seleni/Zn 1 ml/ Insulin Human Regular 15 unit/ Total Parenteral Nutrition/Amino Acids/Dextrose/ Fat Emulsion Intravenous 1,680 ml @ 70 mls/hr TPN CONT IV Last administered on 10/30/19at 22:02; Start 10/30/19 at 22:00; Stop 10/31/19 at 21:59; Status DC Diphenhydramine HCl (Benadryl) 25 mg 1X ONCE IVP Last administered on 10/30/19at 14:26; Start 10/30/19 at 14:30; Stop 10/30/19 at 14:31; Status DC Vancomycin HCl 1.5 gm/Sodium Chloride 500 ml @ 250 mls/hr Q8H IV Last administered on 10/31/19at 03:08; Start 10/30/19 at 18:30; Stop 10/31/19 at 12:24; Status DC Vancomycin HCl (Vancomycin Trough Level) 1 each 1X ONCE MC Last administered on 10/31/19at 10:00; Start 10/31/19 at 10:00; Stop 10/31/19 at 10:01; Status DC Sodium Chloride 90 meq/Potassium Chloride 30 meq/ Potassium Acetate 30 meq/Magnesium Sulfate 15 meq/ Multivitamins 10 ml/Chromium/ Copper/Manganese/ Seleni/Zn 1 ml/ Insulin Human Regular 15 unit/ Total Parenteral Nutrition/Amino Acids/Dextrose/ Fat Emulsion Intravenous 1,680 ml @ 70 mls/hr TPN CONT IV Last administered on 10/31/19at 22:13; Start 10/31/19 at 22:00; Stop 11/01/19 at 21:59; Status DC Vancomycin HCl (Vancomycin Random Level) 1 each 1X ONCE MC Last administered on 11/01/19at 01:00; Start 11/01/19 at 01:00; Stop 11/01/19 at 01:01; Status DC Vancomycin HCl 1.5 gm/Sodium Chloride 500 ml @ 250 mls/hr Q12H IV Last adm inistered on 11/01/19at 22:07; Start 11/01/19 at 10:00; Stop 11/02/19 at 07:41; Status DC Vancomycin HCl (Vancomycin Trough Level) 1 each 1X ONCE MC ; Start 11/02/19 at 09:30; Stop 11/02/19 at 09:31; Status Cancel Sodium Chloride 90 meq/Potassium Chloride 30 meq/ Potassium Acetate 30 meq/Magnesium Sulfate 15 meq/ Multivitamins 10 ml/Chromium/ Copper/Manganese/ Seleni/Zn 1 ml/ Insulin Human Regular 15 unit/ Total Parenteral Nutrition/Amino Acids/Dextrose/ Fat Emulsion Intravenous 1,680 ml @ 70 mls/hr TPN CONT IV Last administered on 11/01/19at 22:08; Start 11/01/19 at 22:00; Stop 11/02/19 at 21:59; Status DC Alteplase, Recombinant (Cathflo For Central Catheter Clearance) 1 mg 1X ONCE INT CAT Last administered on 11/01/19at 11:49; Start 11/01/19 at 11:00; Stop 11/01/19 at 11:01; Status DC Daptomycin 500 mg/ Sodium Chloride 50 ml @ 100 mls/hr Q24H IV Last administered on 11/05/19at 09:33; Start 11/02/19 at 09:00 Sodium Chloride 90 meq/Potassium Chloride 30 meq/ Potassium Acetate 30 meq/Magnesium Sulfate 15 meq/ Multivitamins 10 ml/Chromium/ Copper/Manganese/ Seleni/Zn 1 ml/ Insulin Human Regular 15 unit/ Total Parenteral Nutrition/Amino Acids/Dextrose/ Fat Emulsion Intravenous 1,680 ml @ 70 mls/hr TPN CONT IV Last administered on 11/02/19at 22:55; Start 11/02/19 at 22:00; Stop 11/03/19 at 21:59; Status DC Sodium Chloride 90 meq/Potassium Chloride 30 meq/ Potassium Acetate 30 me q/Magnesium Sulfate 15 meq/ Multivitamins 10 ml/Chromium/ Copper/Manganese/ Seleni/Zn 1 ml/ Insulin Human Regular 15 unit/ Total Parenteral Nutrition/Amino Acids/Dextrose/ Fat Emulsion Intravenous 1,680 ml @ 70 mls/hr TPN CONT IV Last administered on 11/03/19at 22:06; Start 11/03/19 at 22:00; Stop 11/04/19 at 21:59; Status DC Diphenhydramine HCl (Benadryl) 50 mg STK-MED ONCE .ROUTE ; Start 11/03/19 at 18:34; Stop 11/03/19 at 18:35; Status DC Diphenhydramine HCl (Benadryl) 25 mg 1X ONCE IM ; Start 11/03/19 at 18:45; Stop 11/03/19 at 18:46; Status DC Diphenhydramine HCl (Benadryl) 25 mg 1X ONCE IVP Last administered on 11/03/19 at 18:56; Start 11/03/19 at 19:00; Stop 11/03/19 at 19:01; Status DC Alprazolam (Xanax) 0.5 mg PRN TID PRN PO ANXIETY / AGITATION Last administered on 11/05/19at 09:34; Start 11/04/19 at 08:00 Sodium Chloride 110 meq/Potassium Chloride 30 meq/ Potassium Acetate 30 meq/Magnesium Sulfate 15 meq/ Multivitamins 10 ml/Chromium/ Copper/Manganese/ Seleni/Zn 1 ml/ Insulin Human Regular 15 unit/ Total Parenteral Nutrition/Amino Acids/Dextrose/ Fat Emulsion Intravenous 1,680 ml @ 70 mls/hr TPN CONT IV Last administered on 11/04/19at 21:21; Start 11/04/19 at 22:00; Stop 11/05/19 at 21:59 Active Scripts Active Reported Bisoprolol Fumarate 5 Mg Tablet 10 Mg PO DAILY Vitals/I & O Vital Sign - Last 24 Hours 11/04/19 11/04/19 11/04/19 11/04/19 11:00 11:59 12:00 12:00 Pulse 120 140 Resp 30 30 B/P (MAP) 161/105 (123) 168/114 (132) Pulse Ox 99 98 99 O2 Delivery Tracheal Collar Tracheal Collar Trach Collar Tracheal Collar O2 Flow Rate 8.0 8.0 11/04/19 11/04/19 11/04/19 11/04/19 12:13 12:43 13:00 14:00 Temp 99.1 99.1 Pulse 140 120 Resp 30 30 B/P (MAP) 170/107 (128) 170/104 (126) Pulse Ox 98 98 99 99 O2 Delivery Tracheal Collar Tracheal Collar O2 Flow Rate 8.0 8.0 11/04/19 11/04/19 11/04/19 11/04/19 15:00 16:00 16:00 16:18 Temp 98.8 98.8 Resp 30 30 B/P (MAP) 172/104 (126) Pulse Ox 99 99 98 O2 Delivery Tracheal Collar Trach Collar Tracheal Collar Tracheal Collar O2 Flow Rate 8.0 8.0 11/04/19 11/04/19 11/04/19 11/04/19 17:00 18:00 18:08 18:38 Pulse 130 Resp 30 30 B/P (MAP) 212/123 (152) Pulse Ox 99 99 99 100 O2 Delivery Tracheal Collar Tracheal Collar O2 Flow Rate 8.0 8.0 11/04/19 11/04/19 11/04/19 11/04/19 19:00 20:00 20:00 20:13 Temp 98.7 98.7 Pulse 128 127 Resp 30 31 B/P (MAP) 187/123 (144) 160/85 (110) Pulse Ox 98 100 100 O2 Delivery Tracheal Collar Tracheal Collar Trach Collar Tracheal Collar O2 Flow Rate 8.0 8.0 11/04/19 11/04/19 11/04/19 11/05/19 21:00 22:00 23:00 00:00 Temp 98.6 98.6 Pulse 126 123 120 116 Resp 31 30 30 30 B/P (MAP) 165/109 (127) 152/92 (112) 151/99 (116) 151/99 (116) Pulse Ox 100 98 95 99 O2 Delivery Tracheal Collar Tracheal Collar Tracheal Collar Tracheal Collar 11/05/19 11/05/19 11/05/19 11/05/19 00:10 00:10 01:00 02:00 Pulse 119 117 Resp 30 28 B/P (MAP) 158/92 (114) 155/92 (113) Pulse Ox 98 99 99 O2 Delivery Tracheal Collar Trach Collar Tracheal Collar Tracheal Collar O2 Flow Rate 8.0 8.0 11/05/19 11/05/19 11/05/19 11/05/19 03:00 04:00 04:11 04:12 Pulse 114 110 Resp 24 24 B/P (MAP) 153/88 (109) 154/97 (116) Pulse Ox 99 100 98 O2 Delivery Tracheal Collar Tracheal Collar Trach Collar Tracheal Collar O2 Flow Rate 8.0 8.0 7/18/20 7/18/20 7/18/20 05:00 06:00 08:53 Temp 98.5 98.5 Pulse 108 113 Resp 24 24 B/P (MAP) 135/82 (99) 135/93 (107) Pulse Ox 99 97 98 O2 Delivery Tracheal Collar Tracheal Collar Tracheal Collar O2 Flow Rate 8.0 Intake and Output 11/04/19 11/04/19 11/05/19 15:00 23:00 07:00 Intake Total 1126 ml 729 ml Output Total 700 ml 2380 ml 1625 ml Balance -700 ml -1254 ml -896 ml Justicifation of Admission Dx: Justifications for Admission: Justification of Admission Dx: Yes ROSS DIAS MD Nov 05, 2019 10:13
--- NOTE | 2019-11-05 10:18 | NUR ---
During assessment, RN noticed R lower goyal drain to be completely out- dark green drainage coming from drain site. Dr. Segura in room, viewed drains, and made aware of drain coming out. Vaseline gauze, 4x4s applied, pt tolerated well. Will monitor drainage, all other drains still intact.
--- NOTE | 2019-11-05 10:22 | PDOC ---
PROGRESS NOTES Subjective Subjective pt awake, on trach shield Objective Objective Vital Signs Date Time Temp Pulse Resp B/P (MAP) Pulse Ox O2 Delivery O2 Flow Rate FiO2 11/05/19 08:53 98 Tracheal Collar 8.0 11/05/19 06:00 113 24 135/93 (107) 11/05/19 05:00 98.5 98.5 Intake and Output 11/05/19 07:00 Intake Total 1855 ml Output Total 4705 ml Balance -2850 ml IV Total 1855 ml Output Urine Total 3245 ml Chest Tube Drainage Total 40 ml Drainage Total 1420 ml # Bowel Movements 1 Physical Exam Physical Exam abdomen soft, drains in place; largest drain had been gradually pulling back, is now out of the abdomen Assessment Assessment Problems Medical Problems: (1) Acute pancreatitis Status: Acute (2) Cholelithiasis Status: Acute Plan Plan of Care Continue drains, supportive care; Dr Servin to follow up again Thursday, call if needed sooner Comment Review of Relevant I have reviewed the following items kolby (where applicable) has been applied. Labs Laboratory Tests Test 11/03/19 17:27 11/04/19 00:12 11/04/19 05:30 11/04/19 05:36 Glucose (Fingerstick) 136 mg/dL (70-99) 119 mg/dL (70-99) 139 mg/dL (70-99) White Blood Count 9.9 x10^3/uL (4.0-11.0) Red Blood Count 2.53 x10^6/uL (3.50-5.40) Hemoglobin 7.2 g/dL (12.0-15.5) Hematocrit 21.8 % (36.0-47.0) Mean Corpuscular Volume 86 fL (79-100) Mean Corpuscular Hemoglobin 29 pg (25-35) Mean Corpuscular Hemoglobin Concent 33 g/dL (31-37) Red Cell Distribution Width 15.2 % (11.5-14.5) Platelet Count 625 x10^3/uL (140-400) Neutrophils (%) (Auto) 69 % (31-73) Lymphocytes (%) (Auto) 12 % (24-48) Monocytes (%) (Auto) 16 % (0-9) Eosinophils (%) (Auto) 3 % (0-3) Basophils (%) (Auto) 1 % (0-3) Neutrophils # (Auto) 6.9 x10^3/uL (1.8-7.7) Lymphocytes # (Auto) 1.2 x10^3/uL (1.0-4.8) Monocytes # (Auto) 1.6 x10^3/uL (0.0-1.1) Eosinophils # (Auto) 0.3 x10^3/uL (0.0-0.7) Basophils # (Auto) 0.0 x10^3/uL (0.0-0.2) Sodium Level 135 mmol/L (136-145) Potassium Level 4.1 mmol/L (3.5-5.1) Chloride Level 101 mmol/L (98-107) Carbon Dioxide Level 29 mmol/L (21-32) Anion Gap 5 (6-14) Blood Urea Nitrogen 10 mg/dL (7-20) Creatinine 0.6 mg/dL (0.6-1.0) Estimated GFR (Cockcroft-Gault) 106.3 Glucose Level 137 mg/dL (70-99) Calcium Level 9.1 mg/dL (8.5-10.1) Test 11/04/19 12:14 11/04/19 17:57 11/05/19 05:45 Glucose (Fingerstick) 138 mg/dL (70-99) 130 mg/dL (70-99) White Blood Count 12.2 x10^3/uL (4.0-11.0) Red Blood Count 2.77 x10^6/uL (3.50-5.40) Hemoglobin 7.8 g/dL (12.0-15.5) Hematocrit 23.9 % (36.0-47.0) Mean Corpuscular Volume 86 fL (79-100) Mean Corpuscular Hemoglobin 28 pg (25-35) Mean Corpuscular Hemoglobin Concent 33 g/dL (31-37) Red Cell Distribution Width 15.2 % (11.5-14.5) Platelet Count 666 x10^3/uL (140-400) Neutrophils (%) (Auto) 70 % (31-73) Lymphocytes (%) (Auto) 12 % (24-48) Monocytes (%) (Auto) 13 % (0-9) Eosinophils (%) (Auto) 4 % (0-3) Basophils (%) (Auto) 1 % (0-3) Neutrophils # (Auto) 8.6 x10^3/uL (1.8-7.7) Lymphocytes # (Auto) 1.5 x10^3/uL (1.0-4.8) Monocytes # (Auto) 1.6 x10^3/uL (0.0-1.1) Eosinophils # (Auto) 0.5 x10^3/uL (0.0-0.7) Basophils # (Auto) 0.1 x10^3/uL (0.0-0.2) Sodium Level 134 mmol/L (136-145) Potassium Level 4.2 mmol/L (3.5-5.1) Chloride Level 101 mmol/L (98-107) Carbon Dioxide Level 30 mmol/L (21-32) Anion Gap 3 (6-14) Blood Urea Nitrogen 11 mg/dL (7-20) Creatinine 0.6 mg/dL (0.6-1.0) Estimated GFR (Cockcroft-Gault) 106.3 Glucose Level 138 mg/dL (70-99) Calcium Level 9.5 mg/dL (8.5-10.1) Laboratory Tests Test 11/04/19 12:14 11/04/19 17:57 11/05/19 05:45 Glucose (Fingerstick) 138 mg/dL (70-99) 130 mg/dL (70-99) White Blood Count 12.2 x10^3/uL (4.0-11.0) Red Blood Count 2.77 x10^6/uL (3.50-5.40) Hemoglobin 7.8 g/dL (12.0-15.5) Hematocrit 23.9 % (36.0-47.0) Mean Corpuscular Volume 86 fL (79-100) Mean Corpuscular Hemoglobin 28 pg (25-35) Mean Corpuscular Hemoglobin Concent 33 g/dL (31-37) Red Cell Distribution Width 15.2 % (11.5-14.5) Platelet Count 666 x10^3/uL (140-400) Neutrophils (%) (Auto) 70 % (31-73) Lymphocytes (%) (Auto) 12 % (24-48) Monocytes (%) (Auto) 13 % (0-9) Eosinophils (%) (Auto) 4 % (0-3) Basophils (%) (Auto) 1 % (0-3) Neutrophils # (Auto) 8.6 x10^3/uL (1.8-7.7) Lymphocytes # (Auto) 1.5 x10^3/uL (1.0-4.8) Monocytes # (Auto) 1.6 x10^3/uL (0.0-1.1) Eosinophils # (Auto) 0.5 x10^3/uL (0.0-0.7) Basophils # (Auto) 0.1 x10^3/uL (0.0-0.2) Sodium Level 134 mmol/L (136-145) Potassium Level 4.2 mmol/L (3.5-5.1) Chloride Level 101 mmol/L (98-107) Carbon Dioxide Level 30 mmol/L (21-32) Anion Gap 3 (6-14) Blood Urea Nitrogen 11 mg/dL (7-20) Creatinine 0.6 mg/dL (0.6-1.0) Estimated GFR (Cockcroft-Gault) 106.3 Glucose Level 138 mg/dL (70-99) Calcium Level 9.5 mg/dL (8.5-10.1) Microbiology 11/02/19 Blood Culture - Preliminary, Resulted NO GROWTH AFTER 2 DAYS 10/30/19 Gram Stain Evaluation - Final, Complete 10/30/19 Respiratory Culture - Final, Complete 10/30/19 Antimicrobic Susceptibility - Final, Complete 10/18/19 Gram Stain - Final, Complete 10/18/19 Aerobic and Anaerobic Culture - Final, Complete 10/18/19 Antimicrobic Susceptibility - Final, Complete 10/03/19 Gram Stain - Final, Complete 10/03/19 Aerobic and Anaerobic Culture - Final, Complete 09/25/19 Urine Culture - Final, Complete 09/17/19 Gram Stain - Final, Complete 09/17/19 Aerobic Culture - Final, Complete Medications Current Medications Sodium Chloride 1,000 ml @ 1,000 mls/hr Q1H IV Last administered on 07/04/19at 03:00; Start 07/04/19 at 03:00; Stop 07/04/19 at 03:59; Status DC Ondansetron HCl (Zofran) 4 mg 1X ONCE IVP Last administered on 07/04/19at 03:27; Start 07/04/19 at 03:00; Stop 07/04/19 at 03:01; Status DC Morphine Sulfate (Morphine Sulfate) 4 mg 1X ONCE IV ; Start 07/04/19 at 03:00; Stop 07/04/19 at 03:01; Status Cancel Ketorolac Tromethamine (Toradol 30mg Vial) 30 mg 1X ONCE IV Last administered on 07/04/19at 02:54; Start 07/04/19 at 03:00; Stop 07/04/19 at 03:01; Status DC Fentanyl Citrate (Fentanyl 2ml Vial) 25 mcg 1X ONCE IVP Last administered on 07/04/19at 03:23; Start 07/04/19 at 03:30; Stop 07/04/19 at 03:31; Status DC Fentanyl Citrate (Fentanyl 2ml Vial) 100 mcg STK-MED ONCE .ROUTE ; Start 07/04/19 at 03:18; Stop 07/04/19 at 03:18; Status DC Iohexol (Omnipaque 350 Mg/ml) 90 ml 1X ONCE IV Last administered on 07/04/19at 03:25; Start 07/04/19 at 03:30; Stop 07/04/19 at 03:31; Status DC Info (CONTRAST GIVEN -- Rx MONITORING) 1 each PRN DAILY PRN MC SEE COMMENTS; Start 07/04/19 at 03:30; Stop 07/06/19 at 03:29; Status DC Hydromorphone HCl (Dilaudid) 0.5 mg 1X ONCE IV Last administered on 07/04/19at 03:55; Start 07/04/19 at 04:30; Stop 07/04/19 at 04:32; Status DC Ondansetron HCl (Zofran) 4 mg PRN Q8HRS PRN IV NAUSEA/VOMITING 1ST CHOICE; Start 07/04/19 at 05:00; Stop 07/04/19 at 09:27; Status DC Morphine Sulfate (Morphine Sulfate) 2 mg PRN Q2HR PRN IV SEVERE PAIN 7-10 Last administered on 07/05/19at 12:26; Start 07/04/19 at 05:00; Stop 07/05/19 at 14:15; Status DC Sodium Chloride 1,000 ml @ 125 mls/hr Q8H IV Last administered on 07/04/19at 20:56; Start 07/04/19 at 05:00; Stop 07/05/19 at 04:59; Status DC Hydromorphone HCl (Dilaudid) 0.5 mg PRN Q3HRS PRN IV SEVERE PAIN 7-10 Last administered on 07/05/19at 10:06; Start 07/04/19 at 05:00; Stop 07/05/19 at 12:01; Status DC Piperacillin Sod/ Tazobactam Sod 4.5 gm/Sodium Chloride 100 ml @ 200 mls/hr 1X ONCE IV Last administered on 07/04/19at 05:44; Start 07/04/19 at 06:00; Stop 07/04/19 at 06:29; Status DC Ondansetron HCl (Zofran) 4 mg PRN Q4HRS PRN IV NAUSEA/VOMITING 1ST CHOICE Last administered on 11/03/19at 08:18; Start 07/04/19 at 09:30 Insulin Human Lispro (HumaLOG) 0-9 UNITS Q6HRS SQ Last administered on 10/30/19 at 12:43; Start 07/04/19 at 09:30 Dextrose (Dextrose 50%-Water Syringe) 12.5 gm PRN Q15MIN PRN IV SEE COMMENTS; Start 07/04/19 at 09:30 Pantoprazole Sodium (PROTONIX VIAL for IV PUSH) 40 mg DAILYAC IVP Last administered on 11/05/19at 09:35; Start 07/04/19 at 11:30 Prochlorperazine Edisylate (Compazine) 10 mg PRN Q6HRS PRN IV NAUSEA/VOMITING, 2nd CHOICE Last administered on 10/31/19at 20:17; Start 07/04/19 at 17:45 Atenolol (Tenormin) 100 mg DAILY PO ; Start 07/05/19 at 09:00; Stop 07/04/19 at 20:08; Status DC Metoprolol Tartrate (Lopressor Vial) 2.5 mg Q6HRS IVP Last administered on 07/05/19at 05:51; Start 07/04/19 at 20:15; Stop 07/05/19 at 10:02; Status DC Metoprolol Tartrate (Lopressor Vial) 5 mg Q6HRS IVP Last administered on 07/14/19at 00:12; Start 07/05/19 at 10:15; Stop 07/16/19 at 08:48; Status DC Hydromorphone HCl (Dilaudid) 1 mg PRN Q3HRS PRN IV SEVERE PAIN 7-10 Last a dministered on 07/11/19at 05:13; Start 07/05/19 at 12:00; Stop 07/19/19 at 00:25; Status DC Lidocaine HCl (Buffered Lidocaine 1%) 3 ml STK-MED ONCE .ROUTE ; Start 07/05/19 at 12:55; Stop 07/05/19 at 12:56; Status DC Albumin Human 500 ml @ 125 mls/hr 1X ONCE IV Last administered on 07/05/19at 14:33; Start 07/05/19 at 14:30; Stop 07/05/19 at 18:32; Status DC Norepinephrine Bitartrate 8 mg/ Dextrose 258 ml @ 17.299 mls/ hr CONT PRN IV PER PROTOCOL Last administered on 08/02/19at 12:48; Start 07/05/19 at 15:30; Stop 08/05/19 at 09:19; Status DC Sodium Chloride 1,000 ml @ 125 mls/hr Q8H IV Last administered on 07/05/19at 21:04; Start 07/05/19 at 16:00; Stop 07/06/19 at 02:42; Status DC Albumin Human 500 ml @ 125 mls/hr PRN BID PRN IV After every 2L NSS & BP < 90mm Last administered on 10/18/19at 16:06; Start 07/05/19 at 16:00; Stop 10/21/19 at 09:30; Status DC Iohexol (Omnipaque 300 Mg/ml) 60 ml 1X ONCE IV Last administered on 07/05/19at 17:20; Start 07/05/19 at 17:00; Stop 07/05/19 at 17:01; Status DC Info (CONTRAST GIVEN -- Rx MONITORING) 1 each PRN DAILY PRN MC SEE COMMENTS; Start 07/05/19 at 17:00; Stop 07/07/19 at 16:59; Status DC Meropenem 1 gm/ Sodium Chloride 100 ml @ 200 mls/hr Q8HRS IV Last administered on 07/06/19at 05:45; Start 07/05/19 at 20:00; Stop 07/06/19 at 08:48; Status DC Furosemide (Lasix) 40 mg 1X ONCE IVP Last administered on 07/05/19at 22:12; Start 07/05/19 at 22:30; Stop 07/05/19 at 22:31; Status DC Calcium Chloride 1000 mg/Sodium Chloride 110 ml @ 220 mls/hr 1X ONCE IV Last administered on 07/05/19at 22:11; Start 07/05/19 at 22:30; Stop 07/05/19 at 22:59; Status DC Albuterol Sulfate (Ventolin Neb Soln) 2.5 mg 1X ONCE NEB Last administered on 07/06/19at 00:56; Start 07/05/19 at 22:30; Stop 07/05/19 at 22:31; Status DC Insulin Human Regular (HumuLIN R VIAL) 5 unit 1X ONCE IV Last administered on 07/05/19at 22:14; Start 07/05/19 at 22:30; Stop 07/05/19 at 22:31; Status DC Magnesium Sulfate 50 ml @ 25 mls/hr 1X ONCE IV Last administered on 07/06/19at 02:57; Start 07/06/19 at 03:00; Stop 07/06/19 at 04:59; Status DC Calcium Gluconate 1000 mg/Sodium Chloride 110 ml @ 220 mls/hr 1X ONCE IV Last administered on 07/06/19at 02:46; Start 07/06/19 at 03:00; Stop 07/06/19 at 03:29; Status DC Sodium Chloride 1,000 ml @ 200 mls/hr Q5H IV Last administered on 07/06/19at 02:46; Start 07/06/19 at 03:00; Stop 07/06/19 at 10:21; Status DC Calcium Gluconate 1000 mg/Sodium Chloride 110 ml @ 220 mls/hr 1X ONCE IV Last administered on 07/06/19at 03:21; Start 07/06/19 at 03:30; Stop 07/06/19 at 03:59; Status DC Sodium Bicarbonate 50 meq/Sodium Chloride 1,050 ml @ 75 mls/hr Q14H IV Last administered on 07/10/19at 21:10; Start 07/06/19 at 07:30; Stop 07/11/19 at 10:28; Status DC Calcium Gluconate 2000 mg/Sodium Chloride 120 ml @ 220 mls/hr 1X ONCE IV Last administered on 07/06/19at 09:05; Start 07/06/19 at 07:30; Stop 07/06/19 at 08:02; Status DC Lidocaine HCl (Xylocaine-Mpf 1% 2ml Vial) 2 ml STK-MED ONCE .ROUTE ; Start 07/06/19 at 08:47; Stop 07/06/19 at 08:47; Status DC Meropenem 500 mg/ Sodium Chloride 50 ml @ 100 mls/hr Q12HR IV Last administered on 07/11/19at 21:01; Start 07/06/19 at 18:00; Stop 07/12/19 at 07:58; Status DC Lidocaine HCl (Buffered Lidocaine 1%) 3 ml STK-MED ONCE .ROUTE ; Start 07/06/19 at 09:46; Stop 07/06/19 at 09:46; Status DC Lidocaine HCl (Buffered Lidocaine 1%) 6 ml 1X ONCE INJ Last administered on 07/06/19at 10:26; Start 07/06/19 at 10:15; Stop 07/06/19 at 10:16; Status DC Info (Tpn Per Pharmacy) 1 each PRN DAILY PRN MC SEE COMMENTS Last administered on 11/04/19at 10:02; Start 07/06/19 at 12:00 Sodium Chloride 1,000 ml @ 1,000 mls/hr Q1H PRN IV hypotension; Start 07/06/19 at 12:07; Stop 07/06/19 at 18:06; Status DC Diphenhydramine HCl (Benadryl) 25 mg 1X PRN PRN IV ITCHING; Start 07/06/19 at 12:15; Stop 07/07/19 at 12:14; Status DC Diphenhydramine HCl (Benadryl) 25 mg 1X PRN PRN IV ITCHING; Start 07/06/19 at 12:15; Stop 07/07/19 at 12:14; Status DC Sodium Chloride 1,000 ml @ 400 mls/hr Q2H30M PRN IV PATENCY; Start 07/06/19 at 12:07; Stop 07/07/19 at 00:06; Status DC Info (PHARMACY MONITORING -- do not chart) 1 each PRN DAILY PRN MC SEE COMMENTS; Start 07/06/19 at 12:15; Stop 07/08/19 at 08:13; Status DC Sodium Chloride 90 meq/Calcium Gluconate 10 meq/ Multivitamins 10 ml/Chromium/ Copper/Manganese/ Seleni/Zn 1 ml/ Total Parenteral Nutrition/Amino Acids/Dextrose/ Fat Emulsion Intravenous 55.005 ml @ 2.292 mls/hr TPN CONT IV ; Start 07/06/19 at 22:00; Stop 07/06/19 at 12:33; Status DC Info (Tpn Per Pharmacy) 1 each PRN DAILY PRN MC SEE COMMENTS; Start 07/06/19 at 12:30; Status UNV Sodium Chloride 90 meq/Calcium Gluconate 10 meq/ Multivitamins 10 ml/Chromium/ Copper/Manganese/ Seleni/Zn 0.5 ml/ Total Parenteral Nutrition/Amino Acids/Dextrose/ Fat Emulsion Intravenous 1,512 ml @ 63 mls/hr TPN CONT IV Last administered on 07/06/19at 22:06; Start 07/06/19 at 22:00; Stop 07/07/19 at 21:59; Status DC Calcium Carbonate/ Glycine (Tums) 500 mg PRN AFTMEALHC PRN PO INDIGESTION; Start 07/06/19 at 17:45; Stop 08/31/19 at 10:25; Status DC Calcium Gluconate (Calcium Gluconate) 2,000 mg 1X ONCE IVP Last administered on 07/07/19at 02:19; Start 07/07/19 at 02:15; Stop 07/07/19 at 02:16; Status DC Calcium Chloride 3000 mg/Sodium Chloride 1,030 ml @ 50 mls/hr [id number] IV Last administered on 07/09/19at 02:17; Start 07/07/19 at 08:00; Stop 07/09/19 at 15:23; Status DC Lorazepam (Ativan Inj) 1 mg PRN Q4HRS PRN IVP ANXIETY / AGITATION, 2nd choic Last administered on 08/05/19at 03:51; Start 07/07/19 at 09:00; Stop 08/05/19 at 09:19; Status DC Sodium Chloride 1,000 ml @ 1,000 mls/hr Q1H PRN IV hypotension; Start 07/07/19 at 08:56; Stop 07/07/19 at 14:55; Status DC Albumin Human 200 ml @ 200 mls/hr 1X PRN PRN IV Hypotension; Start 07/07/19 at 09:00; Stop 07/07/19 at 14:59; Status DC Diphenhydramine HCl (Benadryl) 25 mg 1X PRN PRN IV ITCHING; Start 07/07/19 at 09:00; Stop 07/08/19 at 08:59; Status DC Diphenhydramine HCl (Benadryl) 25 mg 1X PRN PRN IV ITCHING; Start 07/07/19 at 09:00; Stop 07/08/19 at 08:59; Status DC Sodium Chloride 1,000 ml @ 400 mls/hr Q2H30M PRN IV PATENCY; Start 07/07/19 at 08:56; Stop 07/07/19 at 20:55; Status DC Info (PHARMACY MONITORING -- do not chart) 1 each PRN DAILY PRN MC SEE COMMENTS; Start 07/07/19 at 09:00; Status UNV Info (PHARMACY MONITORING -- do not chart) 1 each PRN DAILY PRN MC SEE COMMENTS; Start 07/07/19 at 09:00; Stop 07/08/19 at 08:13; Status DC Digoxin (Lanoxin) 500 mcg 1X ONCE IV Last administered on 07/07/19at 10:04; Start 07/07/19 at 10:00; Stop 07/07/19 at 10:01; Status DC Digoxin (Lanoxin) 125 mcg 1X ONCE IV Last administered on 07/07/19at 17:10; Start 07/07/19 at 18:00; Stop 07/07/19 at 18:01; Status DC Magnesium Sulfate 100 ml @ 25 mls/hr 1X ONCE IV Last administered on 07/07/19at 12:48; Start 07/07/19 at 13:00; Stop 07/07/19 at 16:59; Status DC Sodium Chloride 90 meq/Magnesium Sulfate 10 meq/ Calcium Gluconate 20 meq/ Multivitamins 10 ml/Chromium/ Copper/Manganese/ Seleni/Zn 0.5 ml/ Total Parenteral Nutrition/Amino Acids/Dextrose/ Fat Emulsion Intravenous 1,512 ml @ 63 mls/hr TPN CONT IV Last administered on 07/07/19at 22:25; Start 07/07/19 at 22:00; Stop 07/08/19 at 21:59; Status DC Sodium Chloride 1,000 ml @ 1,000 mls/hr Q1H PRN IV hypotension; Start 07/08/19 at 08:05; Stop 07/08/19 at 14:04; Status DC Albumin Human 200 ml @ 200 mls/hr 1X ONCE IV Last administered on 07/08/19at 08:57; Start 07/08/19 at 08:15; Stop 07/08/19 at 09:14; Status DC Diphenhydramine HCl (Benadryl) 25 mg 1X PRN PRN IV ITCHING; Start 07/08/19 at 08:15; Stop 07/09/19 at 08:14; Status DC Diphenhydramine HCl (Benadryl) 25 mg 1X PRN PRN IV ITCHING; Start 07/08/19 at 08:15; Stop 07/09/19 at 08:14; Status DC Sodium Chloride 1,000 ml @ 400 mls/hr Q2H30M PRN IV PATENCY; Start 07/08/19 at 08:05; Stop 07/08/19 at 20:04; Status DC Info (PHARMACY MONITORING -- do not chart) 1 each PRN DAILY PRN MC SEE COMMENTS; Start 07/08/19 at 08:15; Stop 07/12/19 at 07:57; Status DC Sodium Chloride 90 meq/Potassium Chloride 15 meq/ Potassium Phosphate 10 mmol/ Magnesium Sulfate 10 meq/Calcium Gluconate 20 meq/ Multivitamins 10 ml/Chromium/ Copper/Manganese/ Seleni/Zn 0.5 ml/ Total Parenteral Nutrition/Amino Acids/Dextrose/ Fat Emulsion Intravenous 1,512 ml @ 63 mls/hr TPN CONT IV Last administered on 07/08/19at 21:01; Start 07/08/19 at 22:00; Stop 07/09/19 at 21:59; Status DC Potassium Chloride/Water 100 ml @ 100 mls/hr 1X ONCE IV Last administered on 07/08/19at 14:09; Start 07/08/19 at 14:00; Stop 07/08/19 at 14:59; Status DC Benzocaine (Hurricaine One) 1 spray 1X ONCE MM Last administered on 07/08/19at 16:38; Start 07/08/19 at 14:30; Stop 07/08/19 at 14:31; Status DC Lidocaine HCl (Glydo (Lidocaine) Jelly) 1 ramu 1X ONCE MM Last administered on 07/08/19at 16:38; Start 07/08/19 at 14:30; Stop 07/08/19 at 14:31; Status DC Linezolid/Dextrose 300 ml @ 300 mls/hr Q12HR IV Last administered on 07/14/19at 21:04; Start 07/08/19 at 20:00; Stop 07/15/19 at 07:50; Status DC Acetaminophen (Tylenol) 650 mg PRN Q6HRS PRN PO MILD PAIN / TEMP; Start 07/09/19 at 03:30; Stop 07/09/19 at 03:36; Status DC Acetaminophen (Tylenol) 650 mg PRN Q6HRS PRN PEG MILD PAIN / TEMP Last administered on 08/04/19at 19:56; Start 07/09/19 at 03:36; Stop 08/31/19 at 10:25; Status DC Sodium Chloride 1,000 ml @ 1,000 mls/hr Q1H PRN IV hypotension; Start 07/09/19 at 07:50; Stop 07/09/19 at 13:49; Status DC Albumin Human 200 ml @ 200 mls/hr 1X PRN PRN IV Hypotension; Start 07/09/19 at 08:00; Stop 07/09/19 at 13:59; Status DC Sodium Chloride (Normal Saline Flush) 10 ml 1X PRN PRN IV AP catheter pack; Start 07/09/19 at 08:00; Stop 07/10/19 at 07:59; Status DC Sodium Chloride (Normal Saline Flush) 10 ml 1X PRN PRN IV [employer] catheter pack; Start 07/09/19 at 08:00; Stop 07/10/19 at 07:59; Status DC Sodium Chloride 1,000 ml @ 400 mls/hr Q2H30M PRN IV PATENCY; Start 07/09/19 at 07:50; Stop 07/09/19 at 19:49; Status DC Info (PHARMACY MONITORING -- do not chart) 1 each PRN DAILY PRN MC SEE COMMENTS; Start 07/09/19 at 08:00; Status UNV Info (PHARMACY MONITORING -- do not chart) 1 each PRN DAILY PRN MC SEE COMMENTS; Start 07/09/19 at 08:00; Stop 07/11/19 at 08:25; Status DC Sodium Chloride 90 meq/Potassium Chloride 15 meq/ Potassium Phosphate 10 mmol/ Magnesium Sulfate 10 meq/Calcium Gluconate 20 meq/ Multivitamins 10 ml/Chromium/ Copper/Manganese/ Seleni/Zn 0.5 ml/ Total Parenteral Nutrition/Amino Acids/Dextrose/ Fat Emulsion Intravenous 1,512 ml @ 63 mls/hr TPN CONT IV Last administered on 07/09/19at 20:57; Start 07/09/19 at 22:00; Stop 07/10/19 at 21:59; Status DC Sodium Chloride 90 meq/Potassium Chloride 15 meq/ Potassium Phosphate 15 mmol/ Magnesium Sulfate 10 meq/Calcium Gluconate 20 meq/ Multivitamins 10 ml/Chromium/ Copper/Manganese/ Seleni/Zn 0.5 ml/ Total Parenteral Nutrition/Amino Ac ids/Dextrose/ Fat Emulsion Intravenous 1,512 ml @ 63 mls/hr TPN CONT IV ; Start 07/10/19 at 22:00; Stop 07/10/19 at 14:16; Status DC Sodium Chloride 90 meq/Potassium Chloride 15 meq/ Potassium Phosphate 15 mmol/ Magnesium Sulfate 10 meq/Calcium Gluconate 20 meq/ Multivitamins 10 ml/Chromium/ Copper/Manganese/ Seleni/Zn 0.5 ml/ Total Parenteral Nutrition/Amino Acids/Dextrose/ Fat Emulsion Intravenous 1,200 ml @ 50 mls/hr TPN CONT IV ; Start 07/10/19 at 22:00; Stop 07/10/19 at 14:17; Status DC Sodium Chloride 90 meq/Potassium Chloride 15 meq/ Potassium Phosphate 10 mmol/ Magnesium Sulfate 10 meq/Calcium Gluconate 20 meq/ Multivitamins 10 ml/Chromium/ Copper/Manganese/ Seleni/Zn 0.5 ml/ Total Parenteral Nutrition/Amino Acids/Dextrose/ Fat Emulsion Intravenous 1,200 ml @ 50 mls/hr TPN CONT IV Last administered on 07/10/19at 23:29; Start 07/10/19 at 22:00; Stop 07/11/19 at 21:59; Status DC Sodium Chloride 1,000 ml @ 1,000 mls/hr Q1H PRN IV hypotension; Start 07/11/19 at 07:28; Stop 07/11/19 at 13:27; Status DC Albumin Human 200 ml @ 200 mls/hr 1X ONCE IV Last administered on 07/11/19at 08:51; Start 07/11/19 at 07:30; Stop 07/11/19 at 08:29; Status DC Diphenhydramine HCl (Benadryl) 25 mg 1X PRN PRN IV ITCHING; Start 07/11/19 at 07:30; Stop 07/12/19 at 07:29; Status DC Diphenhydramine HCl (Benadryl) 25 mg 1X PRN PRN IV ITCHING; Start 07/11/19 at 07:30; Stop 07/12/19 at 07:29; Status DC Sodium Chloride 1,000 ml @ 400 mls/hr Q2H30M PRN IV PATENCY; Start 07/11/19 at 07:28; Stop 07/11/19 at 19:27; Status DC Info (PHARMACY MONITORING -- do not chart) 1 each PRN DAILY PRN MC SEE COMMENTS; Start 07/11/19 at 07:30; Stop 07/22/19 at 13:01; Status DC Metronidazole 100 ml @ 100 mls/hr Q6HRS IV Last administered on 07/27/19at 06:26; Start 07/11/19 at 08:30; Stop 07/27/19 at 09:58; Status DC Micafungin Sodium 100 mg/Dextrose 100 ml @ 100 mls/hr Q24H IV Last administered on 08/18/19at 08:18; Start 07/11/19 at 09:00; Stop 08/18/19 at 20:58; Status DC Propofol 0 ml @ As Directed STK-MED ONCE IV ; Start 07/11/19 at 07:53; Stop 07/11/19 at 07:53; Status DC Etomidate (Amidate) 20 mg STK-MED ONCE IV ; Start 07/11/19 at 07:53; Stop 07/11/19 at 07:54; Status DC Midazolam HCl (Versed) 5 mg STK-MED ONCE .ROUTE ; Start 07/11/19 at 07:57; Stop 07/11/19 at 07:57; Status DC Fentanyl Citrate 30 ml @ 0 mls/hr CONT PRN IV SEE PROTOCOL Last administered on 08/05/19at 06:12; Start 07/11/19 at 08:15; Stop 08/05/19 at 09:19; Status DC Artificial Tears (Artificial Tears) 1 drop PRN Q1HR PRN OU DRY EYE, 1st choice; Start 07/11/19 at 08:15; Stop 08/17/19 at 05:31; Status DC Midazolam HCl 50 mg/Sodium Chloride 50 ml @ 0 mls/hr CONT PRN IV SEE PROTOCOL Last administered on 07/14/19at 22:39; Start 07/11/19 at 08:15; Stop 07/16/19 at 15:59; Status DC Etomidate (Amidate) 8 mg 1X ONCE IV Last administered on 07/11/19at 08:33; Start 07/11/19 at 08:30; Stop 07/11/19 at 08:31; Status DC Succinylcholine Chloride (Anectine) 120 mg 1X ONCE IV Last administered on 07/11/19at 08:34; Start 07/11/19 at 08:30; Stop 07/11/19 at 08:31; Status DC Midazolam HCl (Versed) 5 mg 1X ONCE IV ; Start 07/11/19 at 08:30; Stop 07/11/19 at 08:31; Status DC Potassium Chloride 15 meq/ Bicarbonate Dialysis Soln w/ out KCl 5,007.5 ml @ 1,000 mls/ hr Q5H1M IV Last administered on 07/12/19at 11:11; Start 07/11/19 at 12:00; Stop 07/12/19 at 11:15; Status DC Potassium Chloride 15 meq/ Bicarbonate Dialysis Soln w/ out KCl 5,007.5 ml @ 1,000 mls/ hr Q5H1M IV Last administered on 07/12/19at 11:12; Start 07/11/19 at 12:00; Stop 07/12/19 at 11:17; Status DC Potassium Chloride 15 meq/ Bicarbonate Dialysis Soln w/ out KCl 5,007.5 ml @ 1,000 mls/ hr Q5H1M IV Last administered on 07/12/19at 11:11; Start 07/11/19 at 12:00; Stop 07/12/19 at 11:19; Status DC Sodium Chloride 90 meq/Potassium Chloride 15 meq/ Potassium Phosphate 10 mmol/ Magnesium Sulfate 10 meq/Calcium Gluconate 20 meq/ Multivitamins 10 ml/Chromium/ Copper/Manganese/ Seleni/Zn 0.5 ml/ Total Parenteral Nutrition/Amino Acids/Dextrose/ Fat Emulsion Intravenous 1,400 ml @ 58.333 mls/ hr TPN CONT IV Last administered on 07/11/19at 21:42; Start 07/11/19 at 22:00; Stop 07/12/19 at 21:59; Status DC Heparin Sodium (Porcine) (Heparin Sodium) 5,000 unit Q8HRS SQ Last administered on 07/16/19at 05:55; Start 07/11/19 at 15:00; Stop 07/16/19 at 13:28; Status DC Meropenem 500 mg/ Sodium Chloride 50 ml @ 100 mls/hr Q6HRS IV Last administered on 07/13/19at 06:00; Start 07/12/19 at 09:00; Stop 07/13/19 at 07:29; Status DC Potassium Phosphate 20 mmol/ Sodium Chloride 106.6667 ml @ 51.667 m... 1X ONCE IV Last administered on 07/12/19at 11:22; Start 07/12/19 at 10:15; Stop 07/12/19 at 12:18; Status DC Acetaminophen (Tylenol Supp) 650 mg PRN Q6HRS PRN MS MILD PAIN / TEMP > 100.3'F Last administered on 11/02/19at 19:52; Start 07/12/19 at 10:30 Potassium Chloride/Water 100 ml @ 100 mls/hr Q1H IV Last administered on 07/12/19at 12:12; Start 07/12/19 at 11:00; Stop 07/12/19 at 12:59; Status DC Potassium Chloride 20 meq/ Bicarbonate Dialysis Soln w/ out KCl 5,010 ml @ 1,000 mls/hr Q5H1M IV Last administered on 07/13/19at 08:48; Start 07/12/19 at 12:00; Stop 07/13/19 at 13:03; Status DC Potassium Chloride 20 meq/ Bicarbonate Dialysis Soln w/ out KCl 5,010 ml @ 1,000 mls/hr Q5H1M IV Last administered on 07/17/19at 14:52; Start 07/12/19 at 11:30; Stop 07/17/19 at 19:59; Status DC Potassium Chloride 20 meq/ Bicarbonate Dialysis Soln w/ out KCl 5,010 ml @ 1,000 mls/hr Q5H1M IV Last administered on 07/17/19at 14:53; Start 07/12/19 at 11:30; Stop 07/17/19 at 19:59; Status DC Sodium Chloride 90 meq/Potassium Chloride 15 meq/ Potassium Phosphate 15 mmol/ Magnesium Sulfate 10 meq/Calcium Gluconate 15 meq/ Multivitamins 10 ml/Chromium/ Copper/Manganese/ Seleni/Zn 0.5 ml/ Total Parenteral Nutrition/Amino Acids/Dextrose/ Fat Emulsion Intravenous 1,400 ml @ 58.333 mls/ hr TPN CONT IV Last administered on 07/12/19at 22:17; Start 07/12/19 at 22:00; Stop 07/13/19 at 21:59; Status DC Cefepime HCl (Maxipime) 2 gm Q12HR IVP Last administered on 07/26/19at 20:56; Start 07/13/19 at 09:00; Stop 07/27/19 at 09:58; Status DC Daptomycin 500 mg/ Sodium Chloride 50 ml @ 100 mls/hr Q48H IV Last administered on 07/29/19at 09:57; Start 07/13/19 at 08:30; Stop 07/29/19 at 10:07; Status DC Lidocaine HCl (Buffered Lidocaine 1%) 3 ml 1X ONCE INJ Last administered on 07/13/19at 10:27; Start 07/13/19 at 10:30; Stop 07/13/19 at 10:31; Status DC Potassium Phosphate 20 mmol/ Sodium Chloride 106.6667 ml @ 51.667 m... 1X ONCE IV Last administered on 07/13/19at 12:51; Start 07/13/19 at 13:00; Stop 07/13/19 at 15:03; Status DC Sodium Chloride 90 meq/Potassium Chloride 15 meq/ Potassium Phosphate 18 mmol/ Magnesium Sulfate 8 meq/Calcium Gluconate 15 meq/ Multivitamins 10 ml/Chromium/ Copper/Manganese/ Seleni/Zn 0.5 ml/ Total Parenteral Nutrition/Amino Acids/Dextrose/ Fat Emulsion Intravenous 1,400 ml @ 58.333 mls/ hr TPN CONT IV Last administered on 07/13/19at 22:16; Start 07/13/19 at 22:00; Stop 07/14/19 at 21:59; Status DC Potassium Chloride 20 meq/ Bicarbonate Dialysis Soln w/ out KCl 5,010 ml @ 1,000 mls/hr Q5H1M IV Last administered on 07/17/19at 14:54; Start 07/13/19 at 16:00; Stop 07/17/19 at 19:59; Status DC Multi-Ingred Cream/Lotion/Oil/ Oint (Artificial Tears Eye Ointment) 1 ramu PRN Q1HR PRN OU DRY EYE, 2nd choice Last administered on 08/01/19at 08:19; Start 07/13/19 at 17:30; Stop 09/21/19 at 14:39; Status DC Sodium Chloride 90 meq/Potassium Chloride 15 meq/ Potassium Phosphate 18 mmol/ Magnesium Sulfate 8 meq/Calcium Gluconate 15 meq/ Multivitamins 10 ml/Chromium/ Copper/Manganese/ Seleni/Zn 0.5 ml/ Total Parenteral Nutrition/Amino Acids/Dextrose/ Fat Emulsion Intravenous 1,400 ml @ 58.333 mls/ hr TPN CONT IV Last administered on 07/14/19at 22:00; Start 07/14/19 at 22:00; Stop 07/15/19 at 21:59; Status DC Albumin Human 500 ml @ 125 mls/hr 1X ONCE IV ; Start 07/14/19 at 14:15; Stop 07/14/19 at 18:14; Status DC Sodium Chloride 90 meq/Potassium Chloride 15 meq/ Potassium Phosphate 18 mmol/ Magnesium Sulfate 8 meq/Calcium Gluconate 15 meq/ Multivitamins 10 ml/Chromium/ Copper/Manganese/ Seleni/Zn 0.5 ml/ Insulin Human Regular 10 unit/ Total Parenteral Nutrition/Amino Acids/Dextrose/ Fat Emulsion Intravenous 1,400 ml @ 58.333 mls/ hr TPN CONT IV Last administered on 07/15/19at 21:43; Start 07/15/19 at 22:00; Stop 07/16/19 at 21:59; Status DC Lidocaine HCl (Buffered Lidocaine 1%) 3 ml STK-MED ONCE .ROUTE ; Start 07/13/19 at 10:00; Stop 07/15/19 at 13:57; Status DC Midazolam HCl 100 mg/Sodium Chloride 100 ml @ 7 mls/hr CONT PRN IV SEE PROTOCOL Last administered on 07/27/19at 15:35; Start 07/16/19 at 16:00; Stop 09/21/19 at 14:38; Status DC Sodium Chloride 90 meq/Potassium Chloride 15 meq/ Potassium Phosphate 18 mmol/ Magnesium Sulfate 8 meq/Calcium Gluconate 15 meq/ Multivitamins 10 ml/Chromium/ Copper/Manganese/ Seleni/Zn 0.5 ml/ Insulin Human Regular 15 unit/ Total Parenteral Nutrition/Amino Acids/Dextrose/ Fat Emulsion Intravenous 1,400 ml @ 58.333 mls/ hr TPN CONT IV Last administered on 07/16/19at 20:34; Start 07/16/19 at 22:00; Stop 07/17/19 at 21:59; Status DC Info (Icu Electrolyte Protocol) 1 ea CONT PRN PRN MC PER PROTOCOL; Start 07/17/19 at 13:15 Sodium Chloride 90 meq/Potassium Chloride 15 meq/ Potassium Phosphate 18 mmol/ Magnesium Sulfate 8 meq/Calcium Gluconate 15 meq/ Multivitamins 10 ml/Chromium/ Copper/Manganese/ Seleni/Zn 0.5 ml/ Insulin Human Regular 15 unit/ Total Parenteral Nutrition/Amino Acids/Dextrose/ Fat Emulsion Intravenous 1,400 ml @ 58.333 mls/ hr TPN CONT IV Last administered on 07/17/19at 22:05; Start 07/17/19 at 22:00; Stop 07/18/19 at 21:59; Status DC Potassium Chloride 15 meq/ Bicarbonate Dialysis Soln w/ out KCl 5,007.5 ml @ 1,000 mls/ hr Q5H1M IV Last administered on 07/20/19at 18:14; Start 07/17/19 at 20:00; Stop 07/21/19 at 13:08; Status DC Potassium Chloride 15 meq/ Bicarbonate Dialysis Soln w/ out KCl 5,007.5 ml @ 1,000 mls/ hr Q5H1M IV Last administered on 07/20/19at 18:14; Start 07/17/19 at 20:00; Stop 07/21/19 at 13:08; Status DC Potassium Chloride 15 meq/ Bicarbonate Dialysis Soln w/ out KCl 5,007.5 ml @ 1,000 mls/ hr Q5H1M IV Last administered on 07/20/19at 18:14; Start 07/17/19 at 20:00; Stop 07/21/19 at 13:08; Status DC Iohexol (Omnipaque 240 Mg/ml) 30 ml 1X ONCE PO Last administered on 07/18/19at 11:30; Start 07/18/19 at 11:30; Stop 07/18/19 at 11:33; Status DC Info (CONTRAST GIVEN -- Rx MONITORING) 1 each PRN DAILY PRN MC SEE COMMENTS; Start 07/18/19 at 11:45; Stop 07/20/19 at 11:44; Status DC Sodium Chloride 90 meq/Potassium Chloride 15 meq/ Potassium Phosphate 18 mmol/ Magnesium Sulfate 8 meq/Calcium Gluconate 15 meq/ Multivitamins 10 ml/Chromium/ Copper/Manganese/ Seleni/Zn 0.5 ml/ Insulin Human Regular 15 unit/ Total Parenteral Nutrition/Amino Acids/Dextrose/ Fat Emulsion Intravenous 1,400 ml @ 58.333 mls/ hr TPN CONT IV Last administered on 07/18/19at 21:47; Start 07/18/19 at 22:00; Stop 07/19/19 at 21:59; Status DC Sodium Chloride 90 meq/Potassium Chloride 15 meq/ Potassium Phosphate 18 mmol/ Magnesium Sulfate 8 meq/Calcium Gluconate 15 meq/ Multivitamins 10 ml/Chromium/ Copper/Manganese/ Seleni/Zn 0.5 ml/ Insulin Human Regular 20 unit/ Total Parenteral Nutrition/Amino Acids/Dextrose/ Fat Emulsion Intravenous 1,400 ml @ 58.333 mls/ hr TPN CONT IV Last administered on 07/19/19at 21:36; Start 07/19/19 at 22:00; Stop 07/20/19 at 21:59; Status DC Alteplase, Recombinant (Cathflo For Central Catheter Clearance) 1 mg 1X ONCE INT CAT Last administered on 07/19/19at 20:03; Start 07/19/19 at 19:30; Stop 07/19/19 at 19:46; Status DC Alteplase, Recombinant (Cathflo For Central Catheter Clearance) 1 mg 1X ONCE INT CAT Last administered on 07/19/19at 22:05; Start 07/19/19 at 22:00; Stop 07/19/19 at 22:01; Status DC Sodium Chloride 90 meq/Potassium Chloride 15 meq/ Potassium Phosphate 18 mmol/ Magnesium Sulfate 8 meq/Calcium Gluconate 15 meq/ Multivitamins 10 ml/Chromium/ Copper/Manganese/ Seleni/Zn 0.5 ml/ Insulin Human Regular 20 unit/ Total Parenteral Nutrition/Amino Acids/Dextrose/ Fat Emulsion Intravenous 1,400 ml @ 58.333 mls/ hr TPN CONT IV Last administered on 07/20/19at 21:30; Start 07/20/19 at 22:00; Stop 07/21/19 at 21:59; Status DC Dexmedetomidine HCl 400 mcg/ Sodium Chloride 100 ml @ 0 mls/hr CONT PRN IV ANXIETY / AGITATION Last administered on 09/17/19at 12:57; Start 07/21/19 at 08:15; Stop 09/17/19 at 18:31; Status DC Sodium Chloride 500 ml @ 500 mls/hr 1X PRN PRN IV ELEVATED BP, SEE COMMENTS; Start 07/21/19 at 08:15 Atropine Sulfate (ATROPINE 0.5mg SYRINGE) 0.5 mg PRN Q5MIN PRN IV SEE COMMENTS; Start 07/21/19 at 08:15 Furosemide (Lasix) 20 mg 1X ONCE IVP Last administered on 07/21/19at 08:19; Start 07/21/19 at 08:15; Stop 07/21/19 at 08:16; Status DC Lidocaine HCl (Buffered Lidocaine 1%) 3 ml STK-MED ONCE .ROUTE ; Start 07/21/19 at 08:39; Stop 07/21/19 at 08:39; Status DC Lidocaine HCl (Buffered Lidocaine 1%) 6 ml 1X ONCE INJ Last administered on 07/21/19at 09:05; Start 07/21/19 at 09:00; Stop 07/21/19 at 09:06; Status DC Sodium Chloride 90 meq/Potassium Chloride 15 meq/ Potassium Phosphate 18 mmol/ Magnesium Sulfate 8 meq/Calcium Gluconate 15 meq/ Multivitamins 10 ml/Chromium/ Copper/Manganese/ Seleni/Zn 0.5 ml/ Insulin Human Regular 20 unit/ Total Parenteral Nutrition/Amino Acids/Dextrose/ Fat Emulsion Intravenous 1,400 ml @ 58.333 mls/ hr TPN CONT IV Last administered on 07/21/19at 22:45; Start 07/21/19 at 22:00; Stop 07/22/19 at 21:59; Status DC Sodium Chloride 1,000 ml @ 1,000 mls/hr Q1H PRN IV hypotension; Start 07/22/19 at 07:30; Stop 07/22/19 at 13:29; Status DC Albumin Human 200 ml @ 200 mls/hr 1X PRN PRN IV Hypotension Last administered on 07/22/19at 09:36; Start 07/22/19 at 07:30; Stop 07/22/19 at 13:29; Status DC Sodium Chloride (Normal Saline Flush) 10 ml 1X PRN PRN IV AP catheter pack; Start 07/22/19 at 07:30; Stop 07/22/19 at 21:29; Status DC Sodium Chloride (Normal Saline Flush) 10 ml 1X PRN PRN IV [employer] ENGINEER catheter pack; Start 07/22/19 at 07:30; Stop 07/23/19 at 07:29; Status DC Sodium Chloride 1,000 ml @ 400 mls/hr Q2H30M PRN IV PATENCY; Start 07/22/19 at 07:30; Stop 07/22/19 at 19:29; Status DC Info (PHARMACY MONITORING -- do not chart) 1 each PRN DAILY PRN MC SEE COMMENTS; Start 07/22/19 at 07:30; Stop 07/22/19 at 13:02; Status DC Info (PHARMACY MONITORING -- do not chart) 1 each PRN DAILY PRN MC SEE COMMENTS; Start 07/22/19 at 07:30; Stop 07/24/19 at 12:45; Status DC Sodium Chloride 90 meq/Potassium Chloride 15 meq/ Potassium Phosphate 10 mmol/ Magnesium Sulfate 8 meq/Calcium Gluconate 15 meq/ Multivitamins 10 ml/Chromium/ Copper/Manganese/ Seleni/Zn 0.5 ml/ Insulin Human Regular 25 unit/ Total Parenteral Nutrition/Amino Acids/Dextrose/ Fat Emulsion Intravenous 1,400 ml @ 58.333 mls/ hr TPN CONT IV Last administered on 07/22/19at 22:19; Start 07/22/19 at 22:00; Stop 07/23/19 at 21:59; Status DC Heparin Sodium (Porcine) (Heparin Sodium) 5,000 unit Q12HR SQ Last administered on 08/14/19at 08:59; Start 07/22/19 at 21:00; Stop 08/14/19 at 10:05; Status DC Ondansetron HCl (Zofran) 4 mg PRN Q6HRS PRN IV NAUSEA/VOMITING; Start 07/25/19 at 07:00; Stop 07/26/19 at 06:59; Status DC Fentanyl Citrate (Fentanyl 2ml Vial) 25 mcg PRN Q5MIN PRN IV MILD PAIN 1-3; Start 07/25/19 at 07:00; Stop 07/26/19 at 06:59; Status DC Fentanyl Citrate (Fentanyl 2ml Vial) 50 mcg PRN Q5MIN PRN IV MODERATE TO SEVERE PAIN; Start 07/25/19 at 07:00; Stop 07/26/19 at 06:59; Status DC Ringer's Solution 1,000 ml @ 30 mls/hr Q24H IV ; Start 07/25/19 at 07:00; Stop 07/25/19 at 18:59; Status DC Lidocaine HCl (Xylocaine-Mpf 1% 2ml Vial) 2 ml PRN 1X PRN ID PRIOR TO IV START; Start 07/25/19 at 07:00; Stop 07/26/19 at 06:59; Status DC Prochlorperazine Edisylate (Compazine) 5 mg PACU PRN PRN IV NAUSEA, MRX1; Start 07/25/19 at 07:00; Stop 07/26/19 at 06:59; Status DC Sodium Chloride 1,000 ml @ 1,000 mls/hr Q1H PRN IV hypotension; Start 07/23/19 at 09:10; Stop 07/23/19 at 15:09; Status DC Albumin Human 200 ml @ 200 mls/hr 1X PRN PRN IV Hypotension Last administered on 07/23/19at 10:10; Start 07/23/19 at 09:15; Stop 07/23/19 at 15:14; Status DC Sodium Chloride 1,000 ml @ 400 mls/hr Q2H30M PRN IV PATENCY; Start 07/23/19 at 09:10; Stop 07/23/19 at 21:09; Status DC Info (PHARMACY MONITORING -- do not chart) 1 each PRN DAILY PRN MC SEE COMMENTS; Start 07/23/19 at 09:15; Stop 07/24/19 at 12:45; Status DC Info (PHARMACY MONITORING -- do not chart) 1 each PRN DAILY PRN MC SEE COMMENTS; Start 07/23/19 at 09:15; Stop 07/24/19 at 12:45; Status DC Sodium Chloride 90 meq/Potassium Chloride 15 meq/ Potassium Phosphate 10 mmol/ Magnesium Sulfate 8 meq/Calcium Gluconate 15 meq/ Multivitamins 10 ml/Chromium/ Copper/Manganese/ Seleni/Zn 0.5 ml/ Insulin Human Regular 25 unit/ Total Parenteral Nutrition/Amino Acids/Dextrose/ Fat Emulsion Intravenous 1,400 ml @ 58.333 mls/ hr TPN CONT IV Last administered on 07/23/19at 22:10; Start 07/23/19 at 22:00; Stop 07/24/19 at 21:59; Status DC Magnesium Sulfate 50 ml @ 25 mls/hr PRN DAILY PRN IV for Mag < 1.7 on am labs Last administered on 10/06/19at 10:57; Start 07/24/19 at 09:15 Sodium Chloride 90 meq/Potassium Chloride 15 meq/ Potassium Phosphate 10 mmol/ Magnesium Sulfate 8 meq/Calcium Gluconate 15 meq/ Multivitamins 10 ml/Chromium/ Copper/Manganese/ Seleni/Zn 0.5 ml/ Insulin Human Regular 25 unit/ Total Parenteral Nutrition/Amino Acids/Dextrose/ Fat Emulsion Intravenous 1,400 ml @ 58.333 mls/ hr TPN CONT IV Last administered on 07/24/19at 21:20; Start 07/24/19 at 22:00; Stop 07/25/19 at 21:59; Status DC Sodium Chloride 1,000 ml @ 1,000 mls/hr Q1H PRN IV hypotension; Start 07/24/19 at 12:23; Stop 07/24/19 at 18:22; Status DC Albumin Human 200 ml @ 200 mls/hr 1X ONCE IV Last administered on 07/24/19at 13:34; Start 07/24/19 at 12:30; Stop 07/24/19 at 13:29; Status DC Diphenhydramine HCl (Benadryl) 25 mg 1X PRN PRN IV ITCHING; Start 07/24/19 at 12:30; Stop 07/25/19 at 12:29; Status DC Diphenhydramine HCl (Benadryl) 25 mg 1X PRN PRN IV ITCHING; Start 07/24/19 at 12:30; Stop 07/25/19 at 12:29; Status DC Info (PHARMACY MONITORING -- do not chart) 1 each PRN DAILY PRN MC SEE COMMENTS; Start 07/24/19 at 12:30; Status Cancel Bupivacaine HCl/ Epinephrine Bitart (Sensorcain-Epi 0.5%-1:[id number] Mpf) 30 ml STK-MED ONCE .ROUTE Last administered on 07/25/19at 11:44; Start 07/25/19 at 11:00; Stop 07/25/19 at 11:01; Status DC Cellulose (Surgicel Fibrillar 1x2) 1 each STK-MED ONCE .ROUTE ; Start 07/25/19 at 11:00; Stop 07/25/19 at 11:01; Status DC Sodium Chloride 90 meq/Potassium Chloride 15 meq/ Potassium Phosphate 10 mmol/ Magnesium Sulfate 12 meq/Calcium Gluconate 15 meq/ Multivitamins 10 ml/Chromium/ Copper/Manganese/ Seleni/Zn 0.5 ml/ Insulin Human Regular 25 unit/ Total Parenteral Nutrition/Amino Acids/Dextrose/ Fat Emulsion Intravenous 1,400 ml @ 58.333 mls/ hr TPN CONT IV Last administered on 07/25/19at 22:24; Start 07/25/19 at 22:00; Stop 07/26/19 at 21:59; Status DC Propofol 20 ml @ As Directed STK-MED ONCE IV ; Start 07/25/19 at 11:07; Stop 07/24 at 11:07; Status DC Cellulose (Surgicel Hemostat 4x8) 1 each STK-MED ONCE .ROUTE Last administered on 07/25/19at 11:44; Start 07/25/19 at 11:55; Stop 07/25/19 at 11:56; Status DC Sevoflurane (Ultane) 60 ml STK-MED ONCE IH ; Start 07/25/19 at 12:46; Stop 07/25/19 at 12:46; Status DC Sodium Chloride 1,000 ml @ 1,000 mls/hr Q1H PRN IV hypotension; Start 07/25/19 at 13:51; Stop 07/25/19 at 19:50; Status DC Albumin Human 200 ml @ 200 mls/hr 1X PRN PRN IV Hypotension Last administered on 07/25/19at 14:51; Start 07/25/19 at 14:00; Stop 07/25/19 at 19:59; Status DC Diphenhydramine HCl (Benadryl) 25 mg 1X PRN PRN IV ITCHING; Start 07/25/19 at 14:00; Stop 07/26/19 at 13:59; Status DC Diphenhydramine HCl (Benadryl) 25 mg 1X PRN PRN IV ITCHING; Start 07/25/19 at 14:00; Stop 07/26/19 at 13:59; Status DC Sodium Chloride 1,000 ml @ 400 mls/hr Q2H30M PRN IV PATENCY; Start 07/25/19 at 13:51; Stop 07/26/19 at 01:50; Status DC Info (PHARMACY MONITORING -- do not chart) 1 each PRN DAILY PRN MC SEE COMMENTS; Start 07/25/19 at 14:00; Stop 07/28/19 at 08:16; Status DC Heparin Sodium (Porcine) (Hep Lock Adult) 500 unit STK-MED ONCE IVP ; Start 07/26/19 at 09:29; Stop 07/26/19 at 09:30; Status DC Sodium Chloride 1,000 ml @ 1,000 mls/hr Q1H PRN IV hypotension; Start 07/26/19 at 10:43; Stop 07/26/19 at 16:42; Status DC Sodium Chloride 1,000 ml @ 400 mls/hr Q2H30M PRN IV PATENCY; Start 07/26/19 at 10:43; Stop 07/26/19 at 22:42; Status DC Info (PHARMACY MONITORING -- do not chart) 1 each PRN DAILY PRN MC SEE COMMENTS; Start 07/26/19 at 10:45; Status UNV Info (PHARMACY MONITORING -- do not chart) 1 each PRN DAILY PRN MC SEE COMMENTS; Start 07/26/19 at 10:45; Status UNV Sodium Chloride 90 meq/Potassium Chloride 15 meq/ Magnesium Sulfate 12 meq/Calcium Gluconate 15 meq/ Multivitamins 10 ml/Chromium/ Copper/Manganese/ Seleni/Zn 0.5 ml/ Insulin Human Regular 25 unit/ Total Parenteral Nutrition/Amino Acids/Dextrose/ Fat Emulsion Intravenous 1,400 ml @ 58.333 mls/ hr TPN CONT IV Last administered on 07/26/19at 22:13; Start 07/26/19 at 22:00; Stop 07/27/19 at 21:59; Status DC Sodium Chloride 1,000 ml @ 1,000 mls/hr Q1H PRN IV hypotension; Start 07/27/19 at 07:50; Stop 07/27/19 at 13:49; Status DC Albumin Human 200 ml @ 200 mls/hr 1X ONCE IV ; Start 07/27/19 at 08:00; Stop 07/27/19 at 08:53; Status DC Diphenhydramine HCl (Benadryl) 25 mg 1X PRN PRN IV ITCHING; Start 07/27/19 at 08:00; Stop 07/28/19 at 07:59; Status DC Diphenhydramine HCl (Benadryl) 25 mg 1X PRN PRN IV ITCHING; Start 07/27/19 at 08:00; Stop 07/28/19 at 07:59; Status DC Info (PHARMACY MONITORING -- do not chart) 1 each PRN DAILY PRN MC SEE COMMENTS; Start 07/27/19 at 08:00; Stop 07/28/19 at 08:16; Status DC Albumin Human 50 ml @ 50 mls/hr 1X ONCE IV ; Start 07/27/19 at 08:53; Stop 07/27/19 at 08:56; Status DC Albumin Human 200 ml @ 50 mls/hr PRN 1X PRN IV HYPOTENSION Last administered on 08/02/19at 11:54; Start 07/27/19 at 09:00; Stop 09/08/19 at 11:14; Status DC Meropenem 500 mg/ Sodium Chloride 50 ml @ 100 mls/hr Q12H IV Last administered on 08/16/19at 10:45; Start 07/27/19 at 10:00; Stop 08/16/19 at 12:37; Status DC Sodium Chloride 90 meq/Magnesium Sulfate 12 meq/ Calcium Gluconate 15 meq/ Multivitamins 10 ml/Chromium/ Copper/Manganese/ Seleni/Zn 0.5 ml/ Insulin Human Regular 25 unit/ Total Parenteral Nutrition/Amino Acids/Dextrose/ Fat Emulsion Intravenous 1,400 ml @ 58.333 mls/ hr TPN CONT IV Last administered on 07/27/19at 21:41; Start 07/27/19 at 22:00; Stop 07/28/19 at 21:59; Status DC Sodium Chloride 1,000 ml @ 1,000 mls/hr Q1H PRN IV hypotension; Start 07/28/19 at 07:58; Stop 07/28/19 at 13:57; Status DC Albumin Human 200 ml @ 200 mls/hr 1X PRN PRN IV Hypotension Last administered on 07/28/19at 09:30; Start 07/28/19 at 08:00; Stop 07/28/19 at 13:59; Status DC Sodium Chloride 1,000 ml @ 400 mls/hr Q2H30M PRN IV PATENCY; Start 07/28/19 at 07:58; Stop 07/28/19 at 19:57; Status DC Info (PHARMACY MONITORING -- do not chart) 1 each PRN DAILY PRN MC SEE PIPE TS; Start 07/28/19 at 08:00; Status Cancel Info (PHARMACY MONITORING -- do not chart) 1 each PRN DAILY PRN MC SEE COMMENTS; Start 07/28/19 at 08:15; Status UNV Sodium Chloride 90 meq/Potassium Phosphate 5 mmol/ Magnesium Sulfate 12 meq/Calcium Gluconate 15 meq/ Multivitamins 10 ml/Chromium/ Copper/Manganese/ Seleni/Zn 0.5 ml/ Insulin Human Regular 30 unit/ Total Parenteral Nutriti on/Amino Acids/Dextrose/ Fat Emulsion Intravenous 1,400 ml @ 58.333 mls/ hr TPN CONT IV Last administered on 07/28/19at 22:08; Start 07/28/19 at 22:00; Stop 07/29/19 at 21:59; Status DC Linezolid/Dextrose 300 ml @ 300 mls/hr Q12HR IV Last administered on 08/08/19at 20:40; Start 07/29/19 at 11:00; Stop 08/09/19 at 08:10; Status DC Sodium Chloride 90 meq/Potassium Phosphate 15 mmol/ Magnesium Sulfate 12 meq/Calcium Gluconate 15 meq/ Multivitamins 10 ml/Chromium/ Copper/Manganese/ Seleni/Zn 0.5 ml/ Insulin Human Regular 30 unit/ Total Parenteral Nutrition/Amino Acids/Dextrose/ Fat Emulsion Intravenous 1,400 ml @ 58.333 mls/ hr TPN CONT IV Last administered on 07/29/19at 21:49; Start 07/29/19 at 22:00; Stop 07/30/19 at 21:59; Status DC Sodium Chloride 90 meq/Potassium Phosphate 15 mmol/ Magnesium Sulfate 12 meq/Calcium Gluconate 15 meq/ Multivitamins 10 ml/Chromium/ Copper/Manganese/ Seleni/Zn 0.5 ml/ Insulin Human Regular 40 unit/ Total Parenteral Nutrition/Amino Acids/Dextrose/ Fat Emulsion Intravenous 1,400 ml @ 58.333 mls/ hr TPN CONT IV Last administered on 07/30/19at 21:21; Start 07/30/19 at 22:00; Stop 07/31/19 at 21:59; Status DC Sodium Chloride 1,000 ml @ 1,000 mls/hr Q1H PRN IV hypotension; Start 07/30/19 at 13:26; Stop 07/30/19 at 19:25; Status DC Albumin Human 200 ml @ 200 mls/hr 1X PRN PRN IV Hypotension Last administered on 07/30/19at 15:00; Start 07/30/19 at 13:30; Stop 07/30/19 at 19:29; Status DC Sodium Chloride (Normal Saline Flush) 10 ml 1X PRN PRN IV AP catheter pack; Start 07/30/19 at 13:30; Stop 07/31/19 at 13:29; Status DC Sodium Chloride (Normal Saline Flush) 10 ml 1X PRN PRN IV [employer] ENGINEER catheter pack; Start 07/30/19 at 13:30; Stop 07/31/19 at 13:29; Status DC Sodium Chloride 1,000 ml @ 400 mls/hr Q2H30M PRN IV PATENCY; Start 07/30/19 at 13:26; Stop 07/31/19 at 01:25; Status DC Info (PHARMACY MONITORING -- do not chart) 1 each PRN DAILY PRN MC SEE PIPE LUA; Start 07/30/19 at 13:30; Stop 07/30/19 at 13:33; Status DC Info (PHARMACY MONITORING -- do not chart) 1 each PRN DAILY PRN MC SEE COMMENTS; Start 07/30/19 at 13:30; Stop 07/30/19 at 13:34; Status DC Sodium Chloride 90 meq/Potassium Phosphate 19 mmol/ Magnesium Sulfate 12 meq/Calcium Gluconate 15 meq/ Multivitamins 10 ml/Chromium/ Copper/Manganese/ Seleni/Zn 0.5 ml/ Insulin Human Regular 40 unit/ Total Parenteral Nutrition/Amino Acids/Dextrose/ Fat Emulsion Intravenous 1,400 ml @ 58.333 mls/ hr TPN CONT IV Last administered on 07/31/19at 21:54; Start 07/31/19 at 22:00; Stop 08/01/19 at 21:59; Status DC Sodium Chloride 1,000 ml @ 1,000 mls/hr Q1H PRN IV hypotension; Start 08/01/19 at 09:35; Stop 08/01/19 at 15:34; Status DC Albumin Human 200 ml @ 200 mls/hr 1X PRN PRN IV Hypotension; Start 08/01/19 at 09:45; Stop 08/01/19 at 15:44; Status DC Diphenhydramine HCl (Benadryl) 25 mg 1X PRN PRN IV ITCHING; Start 08/01/19 at 09:45; Stop 08/02/19 at 09:44; Status DC Diphenhydramine HCl (Benadryl) 25 mg 1X PRN PRN IV ITCHING; Start 08/01/19 at 09:45; Stop 08/02/19 at 09:44; Status DC Sodium Chloride 1,000 ml @ 400 mls/hr Q2H30M PRN IV PATENCY; Start 08/01/19 at 09:35; Stop 08/01/19 at 21:34; Status DC Info (PHARMACY MONITORING -- do not chart) 1 each PRN DAILY PRN MC SEE COMMENTS; Start 08/01/19 at 09:45; Status Cancel Sodium Chloride 100 meq/Potassium Phosphate 19 mmol/ Magnesium Sulfate 12 meq/Calcium Gluconate 15 meq/ Multivitamins 10 ml/Chromium/ Copper/Manganese/ Seleni/Zn 0.5 ml/ Insulin Human Regular 40 unit/ Potassium Chloride 20 meq/ Total Parenteral Nutrition/Amino Acids/Dextrose/ Fat Emulsion Intravenous 1,400 ml @ 58.333 mls/ hr TPN CONT IV Last administered on 08/01/19at 22:02; Start 08/01/19 at 22:00; Stop 08/02/19 at 21:59; Status DC Furosemide (Lasix) 40 mg 1X ONCE IVP Last administered on 08/01/19at 14:39; Start 08/01/19 at 14:30; Stop 08/01/19 at 14:31; Status DC Metronidazole 100 ml @ 100 mls/hr Q8HRS IV Last administered on 08/09/19at 06:04; Start 08/02/19 at 10:00; Stop 08/09/19 at 08:10; Status DC Sodium Chloride 1,000 ml @ 1,000 mls/hr Q1H PRN IV hypotension; Start 08/02/19 at 08:00; Stop 08/02/19 at 13:59; Status DC Albumin Human 200 ml @ 200 mls/hr 1X PRN PRN IV Hypotension; Start 08/02/19 at 08:00; Stop 08/02/19 at 13:59; Status DC Sodium Chloride 1,000 ml @ 400 mls/hr Q2H30M PRN IV PATENCY; Start 08/02/19 at 08:00; Stop 08/02/19 at 19:59; Status DC Info (PHARMACY MONITORING -- do not chart) 1 each PRN DAILY PRN MC SEE COMMENTS; Start 08/02/19 at 11:30; Status UNV Info (PHARMACY MONITORING -- do not chart) 1 each PRN DAILY PRN MC SEE COMMENTS; Start 08/02/19 at 11:30; Stop 08/04/19 at 12:13; Status DC Sodium Chloride 100 meq/Potassium Phosphate 19 mmol/ Magnesium Sulfate 12 meq/Calcium Gluconate 15 meq/ Multivitamins 10 ml/Chromium/ Copper/Manganese/ Seleni/Zn 0.5 ml/ Insulin Human Regular 40 unit/ Potassium Chloride 20 meq/ Total Parenteral Nutrition/Amino Acids/Dextrose/ Fat Emulsion Intravenous 1,400 ml @ 58.333 mls/ hr TPN CONT IV Last administered on 08/02/19at 21:52; Start 08/02/19 at 22:00; Stop 08/03/19 at 21:59; Status DC Sodium Chloride (Normal Saline Flush) 10 ml QSHIFT PRN IV AFTER MEDS AND BLOOD DRAWS; Start 08/02/19 at 15:00; Stop 08/30/19 at 11:27; Status DC Sodium Chloride (Normal Saline Flush) 10 ml PRN Q5MIN PRN IV AFTER MEDS AND BLOOD DRAWS; Start 08/02/19 at 15:00 Sodium Chloride (Normal Saline Flush) 20 ml PRN Q5MIN PRN IV AFTER MEDS AND BLOOD DRAWS; Start 08/02/19 at 15:00 Sodium Chloride 100 meq/Potassium Phosphate 19 mmol/ Magnesium Sulfate 12 meq/Calcium Gluconate 15 meq/ Multivitamins 10 ml/Chromium/ Copper/Manganese/ Seleni/Zn 0.5 ml/ Insulin Human Regular 40 unit/ Potassium Chloride 20 meq/ Total Parenteral Nutrition/Amino Acids/Dextrose/ Fat Emulsion Intravenous 1,400 ml @ 58.333 mls/ hr TPN CONT IV Last administered on 08/03/19at 21:20; Start 08/03/19 at 22:00; Stop 08/04/19 at 21:59; Status DC Lidocaine HCl (Buffered Lidocaine 1%) 3 ml STK-MED ONCE .ROUTE ; Start 08/03/19 at 13:16; Stop 08/03/19 at 13:16; Status DC Lidocaine HCl (Buffered Lidocaine 1%) 6 ml 1X ONCE INJ Last administered on 08/03/19at 13:45; Start 08/03/19 at 13:30; Stop 08/03/19 at 13:31; Status DC Albumin Human 100 ml @ 100 mls/hr 1X ONCE IV Last administered on 08/03/19at 15:41; Start 08/03/19 at 15:00; Stop 08/03/19 at 15:59; Status DC Albumin Human 50 ml @ 50 mls/hr 1X ONCE IV Last administered on 08/03/19at 15:00; Start 08/03/19 at 15:00; Stop 08/03/19 at 15:59; Status DC Info (PHARMACY MONITORING -- do not chart) 1 each PRN DAILY PRN MC SEE COMME NTS; Start 08/04/19 at 11:30; Status Cancel Info (PHARMACY MONITORING -- do not chart) 1 each PRN DAILY PRN MC SEE COMMENTS; Start 08/04/19 at 11:30; Status UNV Sodium Chloride 100 meq/Potassium Phosphate 10 mmol/ Magnesium Sulfate 12 meq/Calcium Gluconate 15 meq/ Multivitamins 10 ml/Chromium/ Copper/Manganese/ Seleni/Zn 0.5 ml/ Insulin Human Regular 35 unit/ Potassium Chloride 20 meq/ Total Parenteral Nutrition/Amino Acids/Dextrose/ Fat Emulsion Intravenous 1,400 ml @ 58.333 mls/ hr TPN CONT IV Last administered on 08/04/19at 22:10; Start 08/04/19 at 22:00; Stop 08/05/19 at 21:59; Status DC Sodium Chloride 100 meq/Potassium Phosphate 5 mmol/ Magnesium Sulfate 12 meq/Calcium Gluconate 15 meq/ Multivitamins 10 ml/Chromium/ Copper/Manganese/ Seleni/Zn 0.5 ml/ Insulin Human Regular 35 unit/ Potassium Chloride 20 meq/ Total Parenteral Nutrition/Amino Acids/Dextrose/ Fat Emulsion Intravenous 1,400 ml @ 58.333 mls/ hr TPN CONT IV Last administered on 08/05/19at 22:59; Start 08/05/19 at 22:00; Stop 08/06/19 at 21:59; Status DC Sodium Chloride 1,000 ml @ 1,000 mls/hr Q1H PRN IV hypotension; Start 08/06/19 at 08:27; Stop 08/06/19 at 14:26; Status DC Albumin Human 200 ml @ 200 mls/hr 1X PRN PRN IV Hypotension Last administered on 08/06/19at 09:18; Start 08/06/19 at 08:30; Stop 08/06/19 at 14:29; Status DC Sodium Chloride 1,000 ml @ 400 mls/hr Q2H30M PRN IV PATENCY; Start 08/06/19 at 08:27; Stop 08/06/19 at 20:26; Status DC Info (PHARMACY MONITORING -- do not chart) 1 each PRN DAILY PRN MC SEE COMMENTS; Start 08/06/19 at 08:30; Status Cancel Info (PHARMACY MONITORING -- do not chart) 1 each PRN DAILY PRN MC SEE COMMENTS; Start 08/06/19 at 08:30; Stop 08/14/19 at 13:10; Status DC Sodium Chloride 100 meq/Potassium Chloride 40 meq/ Magnesium Sulfate 15 meq/ Calcium Gluconate 15 meq/ Multivitamins 10 ml/Chromium/ Copper/Manganese/ Seleni/Zn 0.5 ml/ Insulin Human Regular 35 unit/ Total Parenteral Nutrition/Amino Acids/Dextrose/ Fat Emulsion Intravenous 1,400 ml @ 58.333 mls/ hr TPN CONT IV Last administered on 08/06/19at 22:00; Start 08/06/19 at 22:00; Stop 08/07/19 at 21:59; Status DC Potassium Chloride/Water 100 ml @ 100 mls/hr 1X ONCE IV Last administered on 08/06/19at 17:28; Start 08/06/19 at 14:45; Stop 08/06/19 at 15:44; Status DC Sodium Chloride 100 meq/Potassium Chloride 40 meq/ Magnesium Sulfate 15 meq/Calcium Gluconate 15 meq/ Multivitamins 10 ml/Chromium/ Copper/Manganese/ Seleni/Zn 0.5 ml/ Insulin Human Regular 35 unit/ Total Parenteral Nutrition/Amino Acids/Dextrose/ Fat Emulsion Intravenous 1,400 ml @ 58.333 mls/ hr TPN CONT IV Last administered on 08/07/19at 22:46; Start 08/07/19 at 22:00; Stop 08/08/19 at 21:59; Status DC Sodium Chloride 100 meq/Potassium Chloride 40 meq/ Magnesium Sulfate 20 meq/Calcium Gluconate 15 meq/ Multivitamins 10 ml/Chromium/ Copper/Manganese/ Seleni/Zn 0.5 ml/ Insulin Human Regular 35 unit/ Total Parenteral Nutrition/Amino Acids/Dextrose/ Fat Emulsion Intravenous 1,400 ml @ 58.333 mls/ hr TPN CONT IV Last administered on 08/08/19at 22:31; Start 08/08/19 at 22:00; Stop 08/09/19 at 21:59; Status DC Fentanyl Citrate (Fentanyl 2ml Vial) 50 mcg PRN Q2HR PRN IVP PAIN Last administered on 08/15/19at 13:32; Start 08/08/19 at 21:00; Stop 08/16/19 at 12:53; Status DC Fentanyl Citrate (Fentanyl 2ml Vial) 25 mcg PRN Q2HR PRN IVP PAIN; Start 08/08/19 at 21:00; Stop 08/16/19 at 12:54; Status DC Enoxaparin Sodium (Lovenox 100mg Syringe) 100 mg Q12HR SQ ; Start 08/09/19 at 21:00; Status UNV Amino Acids/ Glycerin/ Electrolytes 1,000 ml @ 75 mls/hr [id number] IV ; Start 08/08/19 at 21:15; Status UNV Sodium Chloride 1,000 ml @ 1,000 mls/hr Q1H PRN IV hypotension; Start 08/09/19 at 07:56; Stop 08/09/19 at 13:55; Status DC Albumin Human 200 ml @ 200 mls/hr 1X PRN PRN IV Hypotension Last administered on 08/09/19at 08:40; Start 08/09/19 at 08:00; Stop 08/09/19 at 13:59; Status DC Sodium Chloride 1,000 ml @ 400 mls/hr Q2H30M PRN IV PATENCY; Start 08/09/19 at 07:56; Stop 08/09/19 at 19:55; Status DC Info (PHARMACY MONITORING -- do not chart) 1 each PRN DAILY PRN MC SEE COMMENTS; Start 08/09/19 at 08:00; Status UNV Info (PHARMACY MONITORING -- do not chart) 1 each PRN DAILY PRN MC SEE COMMENTS; Start 08/09/19 at 08:00; Status UNV Daptomycin 430 mg/ Sodium Chloride 50 ml @ 100 mls/hr Q24H IV Last administered on 08/09/19at 12:35; Start 08/09/19 at 09:00; Stop 08/09/19 at 12:49; Status DC Sodium Chloride 100 meq/Potassium Chloride 40 meq/ Magnesium Sulfate 20 meq/Calcium Gluconate 15 meq/ Multivitamins 10 ml/Chromium/ Copper/Manganese/ Seleni/Zn 0.5 ml/ Insulin Human Regular 35 unit/ Total Parenteral Nutrition/Amino Acids/Dextrose/ Fat Emulsion Intravenous 1,400 ml @ 58.333 mls/ hr TPN CONT IV Last administered on 08/09/19at 21:26; Start 08/09/19 at 22:00; Stop 08/10/19 at 21:59; Status DC Daptomycin 430 mg/ Sodium Chloride 50 ml @ 100 mls/hr Q48H IV ; Start 08/11/19 at 09:00; Stop 08/10/19 at 11:55; Status DC Sodium Chloride 100 meq/Potassium Chloride 40 meq/ Magnesium Sulfate 20 meq/Calcium Gluconate 15 meq/ Multivitamins 10 ml/Chromium/ Copper/Manganese/ Seleni/Zn 0.5 ml/ Insulin Human Regular 35 unit/ Total Parenteral Nutrition/Amino Acids/Dextrose/ Fat Emulsion Intravenous 1,400 ml @ 58.333 mls/ hr TPN CONT IV Last administered on 08/10/19at 22:27; Start 08/10/19 at 22:00; Stop 08/11/19 at 21:59; Status DC Daptomycin 430 mg/ Sodium Chloride 50 ml @ 100 mls/hr Q24H IV Last administered on 08/12/19at 15:07; Start 08/10/19 at 13:00; Stop 08/13/19 at 13:15; Status DC Sodium Chloride 100 meq/Potassium Chloride 40 meq/ Magnesium Sulfate 20 meq/Calcium Gluconate 10 meq/ Multivitamins 10 ml/Chromium/ Copper/Manganese/ Seleni/Zn 0.5 ml/ Insulin Human Regular 35 unit/ Total Parenteral Nutrition/Amino Acids/Dextrose/ Fat Emulsion Intravenous 1,400 ml @ 58.333 mls/ hr TPN CONT IV Last administered on 08/12/19at 00:06; Start 08/11/19 at 22:00; Stop 08/12/19 at 21:59; Status DC Alteplase, Recombinant (Cathflo For Central Catheter Clearance) 1 mg 1X ONCE I NT CAT Last administered on 08/12/19at 11:44; Start 08/12/19 at 10:45; Stop 08/12/19 at 10:46; Status DC Ondansetron HCl (Zofran) 4 mg PRN Q6HRS PRN IV NAUSEA/VOMITING; Start 08/15/19 at 07:00; Stop 08/16/19 at 06:59; Status DC Fentanyl Citrate (Fentanyl 2ml Vial) 25 mcg PRN Q5MIN PRN IV MILD PAIN 1-3; Start 08/15/19 at 07:00; Stop 08/16/19 at 06:59; Status DC Fentanyl Citrate (Fentanyl 2ml Vial) 50 mcg PRN Q5MIN PRN IV MODERATE TO SEVERE PAIN Last administered on 08/15/19at 10:17; Start 08/15/19 at 07:00; Stop 08/16/19 at 06:59; Status DC Ringer's Solution 1,000 ml @ 30 mls/hr Q24H IV ; Start 08/15/19 at 07:00; Stop 08/15/19 at 18:59; Status DC Lidocaine HCl (Xylocaine-Mpf 1% 2ml Vial) 2 ml PRN 1X PRN ID PRIOR TO IV START; Start 08/15/19 at 07:00; Stop 08/16/19 at 06:59; Status DC Prochlorperazine Edisylate (Compazine) 5 mg PACU PRN PRN IV NAUSEA, MRX1; Start 08/15/19 at 07:00; Stop 08/16/19 at 06:59; Status DC Sodium Acetate 50 meq/Potassium Acetate 55 meq/ Magnesium Sulfate 20 meq/Calcium Gluconate 10 meq/ Multivitamins 10 ml/Chromium/ Copper/Manganese/ Seleni/Zn 0.5 ml/ Insulin Human Regular 35 unit/ Total Parenteral Nutrition/Amino Acids/Dextrose/ Fat Emulsion Intravenous 1,400 ml @ 58.333 mls/ hr TPN CONT IV ; Start 08/12/19 at 22:00; Stop 08/12/19 at 14:15; Status DC Sodium Acetate 50 meq/Potassium Acetate 55 meq/ Magnesium Sulfate 20 meq/Calcium Gluconate 10 meq/ Multivitamins 10 ml/Chromium/ Copper/Manganese/ Seleni/Zn 0.5 ml/ Insulin Human Regular 35 unit/ Total Parenteral Nutrition/Amino Acids/Dextrose/ Fat Emulsion Intravenous 1,800 ml @ 75 mls/hr TPN CONT IV Last administered on 08/12/19at 22:38; Start 08/12/19 at 22:00; Stop 08/13/19 at 21:59; Status DC Sodium Chloride 1,000 ml @ 1,000 mls/hr Q1H PRN IV hypotension; Start 08/12/19 at 15:31; Stop 08/12/19 at 21:30; Status DC Diphenhydramine HCl (Benadryl) 25 mg 1X PRN PRN IV ITCHING; Start 08/12/19 at 15:45; Stop 08/13/19 at 15:44; Status DC Diphenhydramine HCl (Benadryl) 25 mg 1X PRN PRN IV ITCHING; Start 08/12/19 at 15:45; Stop 08/13/19 at 15:44; Status DC Sodium Chloride 1,000 ml @ 400 mls/hr Q2H30M PRN IV PATENCY; Start 08/12/19 at 15:31; Stop 08/13/19 at 03:30; Status DC Info (PHARMACY MONITORING -- do not chart) 1 each PRN DAILY PRN MC SEE COMMENTS; Start 08/12/19 at 15:45; Stop 09/13/19 at 14:14; Status DC Sodium Acetate 50 meq/Potassium Acetate 55 meq/ Magnesium Sulfate 20 meq/Calcium Gluconate 10 meq/ Multivitamins 10 ml/Chromium/ Copper/Manganese/ Seleni/Zn 0.5 ml/ Insulin Human Regular 35 unit/ Total Parenteral Nutrition/Amino Acids/Dextrose/ Fat Emulsion Intravenous 1,800 ml @ 75 mls/hr TPN CONT IV Last administered on 08/13/19at 22:03; Start 08/13/19 at 22:00; Stop 08/14/19 at 21:59; Status DC Daptomycin 430 mg/ Sodium Chloride 50 ml @ 100 mls/hr Q24H IV Last administered on 08/18/19at 13:00; Start 08/13/19 at 13:00; Stop 08/18/19 at 20:58; Status DC Heparin Sodium (Porcine) 1000 unit/Sodium Chloride 1,001 ml @ 1,001 mls/hr 1X ONCE IRR ; Start 08/15/19 at 06:00; Stop 08/15/19 at 06:59; Status DC Potassium Acetate 55 meq/Magnesium Sulfate 20 meq/ Calcium Gluconate 10 meq/ Multivitamins 10 ml/Chromium/ Copper/Manganese/ Seleni/Zn 0.5 ml/ Insulin Human Regular 35 unit/ Total Parenteral Nutrition/Amino Acids/Dextrose/ Fat Emulsion Intravenous 1,920 ml @ 80 mls/hr TPN CONT IV Last administered on 08/14/19at 22:10; Start 08/14/19 at 22:00; Stop 08/15/19 at 21:59; Status DC Dexamethasone Sodium Phosphate (Decadron) 4 mg STK-MED ONCE .ROUTE ; Start 08/15/19 at 10:56; Stop 08/15/19 at 10:57; Status DC Ondansetron HCl (Zofran) 4 mg STK-MED ONCE .ROUTE ; Start 08/15/19 at 10:56; Stop 08/15/19 at 10:57; Status DC Rocuronium [place] (Zemuron) 50 mg STK-MED ONCE .ROUTE ; Start 08/15/19 at 10:56; Stop 08/15/19 at 10:57; Status DC Fentanyl Citrate (Fentanyl 2ml Vial) 100 mcg STK-MED ONCE .ROUTE ; Start 08/15/19 at 10:56; Stop 08/15/19 at 10:57; Status DC Bupivacaine HCl/ Epinephrine Bitart (Sensorcain-Epi 0.5%-1:[id number] Mpf) 30 ml STK-MED ONCE .ROUTE Last administered on 08/15/19at 12:01; Start 08/15/19 at 10:58; Stop 08/15/19 at 10:58; Status DC Cellulose (Surgicel Hemostat 2x14) 1 each STK-MED ONCE .ROUTE ; Start 08/15/19 at 10:58; Stop 08/15/19 at 10:59; Status DC Iohexol (Omnipaque 300 Mg/ml) 50 ml STK-MED ONCE .ROUTE ; Start 08/15/19 at 10:58; Stop 08/15/19 at 10:59; Status DC Cellulose (Surgicel Hemostat 4x8) 1 each STK-MED ONCE .ROUTE ; Start 08/15/19 at 10:58; Stop 08/15/19 at 10:59; Status DC Bisacodyl (Dulcolax Supp) 10 mg STK-MED ONCE .ROUTE ; Start 08/15/19 at 10:59; Stop 08/15/19 at 10:59; Status DC Heparin Sodium (Porcine) 1000 unit/Sodium Chloride 1,001 ml @ 1,001 mls/hr 1X ONCE IRR ; Start 08/15/19 at 12:00; Stop 08/15/19 at 12:59; Status DC Propofol 20 ml @ As Directed STK-MED ONCE IV ; Start 08/15/19 at 11:05; Stop 08/15/19 at 11:05; Status DC Sevoflurane (Ultane) 90 ml STK-MED ONCE IH ; Start 08/15/19 at 11:05; Stop 08/15/19 at 11:05; Status DC Sevoflurane (Ultane) 60 ml STK-MED ONCE IH ; Start 08/15/19 at 12:26; Stop 08/15/19 at 12:27; Status DC Propofol 20 ml @ As Directed STK-MED ONCE IV ; Start 08/15/19 at 12:26; Stop 08/15/19 at 12:27; Status DC Phenylephrine HCl (PHENYLEPHRINE in 0.9% NACL PF) 1 mg STK-MED ONCE IV ; Start 08/15/19 at 12:34; Stop 08/15/19 at 12:34; Status DC Heparin Sodium (Porcine) (Heparin Sodium) 5,000 unit Q12HR SQ Last administered on 08/24/19at 20:57; Start 08/15/19 at 21:00; Stop 08/25/19 at 09:59; Status DC Sodium Chloride (Normal Saline Flush) 3 ml QSHIFT PRN IV AFTER MEDS AND BLOOD DRAWS; Start 08/15/19 at 13:45; Status Cancel Naloxone HCl (Narcan) 0.4 mg PRN Q2MIN PRN IV SEE INSTRUCTIONS Last administered on 09/24/19at 15:15; Start 08/15/19 at 13:45; Stop 10/19/19 at 16:00; Status DC Sodium Chloride 1,000 ml @ 25 mls/hr Q24H IV Last administered on 09/13/19at 13:37; Start 08/15/19 at 13:37; Stop 09/16/19 at 13:09; Status DC Naloxone HCl (Narcan) 0.4 mg PRN Q2MIN PRN IV SEE INSTRUCTIONS; Start 08/15/19 at 14:30; Status UNV Sodium Chloride 1,000 ml @ 25 mls/hr Q24H IV ; Start 08/15/19 at 14:30; Status UNV Hydromorphone HCl 30 ml @ 0 mls/hr CONT PRN PRN IV PER PROTOCOL Last administered on 08/20/19at 16:08; Start 08/15/19 at 14:30; Stop 08/22/19 at 08:55; Status DC Potassium Acetate 55 meq/Magnesium Sulfate 20 meq/ Calcium Gluconate 10 meq/ Multivitamins 10 ml/Chromium/ Copper/Manganese/ Seleni/Zn 0.5 ml/ Insulin Human Regular 35 unit/ Total Parenteral Nutrition/Amino Acids/Dextrose/ Fat Emulsion Intravenous 1,920 ml @ 80 mls/hr TPN CONT IV Last administered on 08/15/19at 22:01; Start 08/15/19 at 22:00; Stop 08/16/19 at 21:59; Status DC Bumetanide (Bumex) 2 mg [id number] IV Last administered on 08/19/19at 13:50; Start 08/16/19 at 14:00; Stop 08/20/19 at 14:10; Status DC Meropenem 1 gm/ Sodium Chloride 100 ml @ 200 mls/hr Q8HRS IV Last administered on 09/09/19at 05:53; Start 08/16/19 at 14:00; Stop 09/09/19 at 09:31; Status DC Potassium Acetate 55 meq/Magnesium Sulfate 20 meq/ Calcium Gluconate 10 meq/ Multivitamins 10 ml/Chromium/ Copper/Manganese/ Seleni/Zn 0.5 ml/ Insulin Human Regular 35 unit/ Total Parenteral Nutrition/Amino Acids/Dextrose/ Fat Emulsion Intravenous 1,920 ml @ 80 mls/hr TPN CONT IV Last administered on 08/16/19at 22:02; Start 08/16/19 at 22:00; Stop 08/17/19 at 21:59; Status DC Hydromorphone HCl (Dilaudid Standard INCOMING INSPECTOR) 12 mg STK-MED ONCE IV ; Start 08/15/19 at 14:35; Stop 08/16/19 at 13:53; Status DC Artificial Tears (Artificial Tears) 1 drop PRN Q15MIN PRN OU DRY EYE Last administered on 10/11/19at 21:17; Start 08/17/19 at 05:30 Hydromorphone HCl (Dilaudid Standard INCOMING INSPECTOR) 12 mg STK-MED ONCE IV ; Start 08/16/19 at 12:05; Stop 08/17/19 at 09:15; Status DC Potassium Acetate 65 meq/Magnesium Sulfate 20 meq/ Calcium Gluconate 10 meq/ Multivitamins 10 ml/Chromium/ Copper/Manganese/ Seleni/Zn 0.5 ml/ Insulin Human Regular 30 unit/ Total Parenteral Nutrition/Amino Acids/Dextrose/ Fat Emulsion Intravenous 1,920 ml @ 80 mls/hr TPN CONT IV Last administered on 08/17/19at 22:22; Start 08/17/19 at 22:00; Stop 08/18/19 at 21:59; Status DC Cyclobenzaprine HCl (Flexeril) 10 mg PRN Q6HRS PRN PO MUSCLE SPASMS Last administered on 10/28/19at 19:12; Start 08/18/19 at 10:45 Potassium Acetate 55 meq/Magnesium Sulfate 20 meq/ Calcium Gluconate 10 meq/ Multivitamins 10 ml/Chromium/ Copper/Manganese/ Seleni/Zn 0.5 ml/ Insulin Human Regular 30 unit/ Total Parenteral Nutrition/Amino Acids/Dextrose/ Fat Emulsion Intravenous 1,920 ml @ 80 mls/hr TPN CONT IV Last administered on 08/19/19at 01:00; Start 08/18/19 at 22:00; Stop 08/19/19 at 21:59; Status DC Magnesium Sulfate 50 ml @ 25 mls/hr 1X ONCE IV Last administered on 08/18/19at 17:18; Start 08/18/19 at 12:45; Stop 08/18/19 at 14:44; Status DC Potassium Chloride/Water 100 ml @ 100 mls/hr 1X ONCE IV Last administered on 08/19/19at 11:27; Start 08/19/19 at 12:00; Stop 08/19/19 at 12:59; Status DC Hydromorphone HCl (Dilaudid Standard INCOMING INSPECTOR) 12 mg STK-MED ONCE IV ; Start 08/17/19 at 10:50; Stop 08/19/19 at 11:02; Status DC Hydromorphone HCl (Dilaudid Standard INCOMING INSPECTOR) 12 mg STK-MED ONCE IV ; Start 08/18/19 at 13:47; Stop 08/19/19 at 11:03; Status DC Potassium Acetate 30 meq/Magnesium Sulfate 20 meq/ Calcium Gluconate 10 meq/ Multivitamins 10 ml/Chromium/ Copper/Manganese/ Seleni/Zn 0.5 ml/ Insulin Human Regular 30 unit/ Potassium Chloride 30 meq/ Total Parenteral Nutrition/Amino Acids/Dextrose/ Fat Emulsion Intravenous 1,920 ml @ 80 mls/hr TPN CONT IV Last administered on 08/19/19at 22:34; Start 08/19/19 at 22:00; Stop 08/20/19 at 21:59; Status DC Potassium Chloride/Water 100 ml @ 100 mls/hr Q1H IV Last administered on 08/20/19at 13:05; Start 08/20/19 at 07:00; Stop 08/20/19 at 10:59; Status DC Magnesium Sulfate 50 ml @ 25 mls/hr 1X ONCE IV Last administered on 08/20/19at 10:34; Start 08/20/19 at 10:30; Stop 08/20/19 at 12:29; Status DC Potassium Chloride 75 meq/ Magnesium Sulfate 20 meq/Calcium Gluconate 10 meq/ Multivitamins 10 ml/Chromium/ Copper/Manganese/ Seleni/Zn 0.5 ml/ Insulin Human Regular 30 unit/ Total Parenteral Nutrition/Amino Acids/Dextrose/ Fat Emulsion Intravenous 1,920 ml @ 80 mls/hr TPN CONT IV Last administered on 08/20/19at 21:51; Start 08/20/19 at 22:00; Stop 08/21/19 at 22:00; Status DC Potassium Chloride 75 meq/ Magnesium Sulfate 20 meq/Calcium Gluconate 10 meq/ Multivitamins 10 ml/Chromium/ Copper/Manganese/ Seleni/Zn 0.5 ml/ Insulin Human Regular 25 unit/ Total Parenteral Nutrition/Amino Acids/Dextrose/ Fat Emulsion Intravenous 1,920 ml @ 80 mls/hr TPN CONT IV Last administered on 08/21/19at 22:04; Start 08/21/19 at 22:00; Stop 08/22/19 at 21:59; Status DC Hydromorphone HCl (Dilaudid) 0.4 mg PRN Q4HRS PRN IVP PAIN Last administered on 08/22/19at 10:57; Start 08/22/19 at 09:00; Stop 08/22/19 at 18:59; Status DC Micafungin Sodium 100 mg/Dextrose 100 ml @ 100 mls/hr Q24H IV Last administered on 09/13/19at 12:17; Start 08/22/19 at 11:00; Stop 09/14/19 at 09:59; Status DC Daptomycin 485 mg/ Sodium Chloride 50 ml @ 100 mls/hr Q24H IV Last administered on 08/29/19at 13:10; Start 08/22/19 at 11:00; Stop 08/30/19 at 07:44; Status DC Potassium Chloride 75 meq/ Magnesium Sulfate 15 meq/Calcium Gluconate 8 meq/ Multivitamins 10 ml/Chromium/ Copper/Manganese/ Seleni/Zn 0.5 ml/ Insulin Human Regular 25 unit/ Total Parenteral Nutrition/Amino Acids/Dextrose/ Fat Emulsion Intravenous 1,920 ml @ 80 mls/hr TPN CONT IV Last administered on 08/22/19at 23:08; Start 08/22/19 at 22:00; Stop 08/23/19 at 21:59; Status DC Haloperidol Lactate (Haldol Inj) 3 mg 1X ONCE IVP Last administered on 08/22/19at 14:37; Start 08/22/19 at 14:30; Stop 08/22/19 at 14:31; Status DC Hydromorphone HCl (Dilaudid) 1 mg PRN Q4HRS PRN IVP PAIN Last administered on 09/05/19at 06:25; Start 08/22/19 at 19:00; Stop 09/05/19 at 17:10; Status DC Potassium Chloride 75 meq/ Magnesium Sulfate 15 meq/Calcium Gluconate 8 meq/ Multivitamins 10 ml/Chromium/ Copper/Manganese/ Seleni/Zn 0.5 ml/ Insulin Human Regular 20 unit/ Total Parenteral Nutrition/Amino Acids/Dextrose/ Fat Emulsion Intravenous 1,920 ml @ 80 mls/hr TPN CONT IV Last administered on 08/23/19at 22:10; Start 08/23/19 at 22:00; Stop 08/24/19 at 21:59; Status DC Lidocaine HCl (Buffered Lidocaine 1%) 3 ml STK-MED ONCE .ROUTE ; Start 08/24/19 at 11:31; Stop 08/24/19 at 11:31; Status DC Lidocaine HCl (Buffered Lidocaine 1%) 3 ml STK-MED ONCE .ROUTE ; Start 08/24/19 at 12:28; Stop 08/24/19 at 12:29; Status DC Lidocaine HCl (Buffered Lidocaine 1%) 6 ml 1X ONCE INJ Last administered on 08/24/19at 12:53; Start 08/24/19 at 12:45; Stop 08/24/19 at 12:46; Status DC Potassium Chloride 75 meq/ Magnesium Sulfate 15 meq/Calcium Gluconate 8 meq/ Multivitamins 10 ml/Chromium/ Copper/Manganese/ Seleni/Zn 0.5 ml/ Insulin Human Regular 20 unit/ Total Parenteral Nutrition/Amino Acids/Dextrose/ Fat Emulsion Intravenous 1,920 ml @ 80 mls/hr TPN CONT IV Last administered on 08/24/19at 22:00; Start 08/24/19 at 22:00; Stop 08/25/19 at 21:59; Status DC Potassium Chloride 75 meq/ Magnesium Sulfate 15 meq/Calcium Gluconate 8 meq/ Multivitamins 10 ml/Chromium/ Copper/Manganese/ Seleni/Zn 0.5 ml/ Insulin Human Regular 15 unit/ Total Parenteral Nutrition/Amino Acids/Dextrose/ Fat Emulsion Intravenous 1,920 ml @ 80 mls/hr TPN CONT IV Last administered on 08/25/19at 22:28; Start 08/25/19 at 22:00; Stop 08/26/19 at 21:59; Status DC Vecuronium [place] (Norcuron Bolus) 6 mg PRN Q6HRS PRN IV VENT ASYNCHRONY; Start 08/25/19 at 19:15; Stop 08/25/19 at 19:35; Status DC Bumetanide (Bumex) 2 mg 1X ONCE IV Last administered on 08/25/19at 22:09; Start 08/25/19 at 19:45; Stop 08/25/19 at 19:46; Status DC Lidocaine HCl (Buffered Lidocaine 1%) 3 ml STK-MED ONCE .ROUTE ; Start 08/26/19 at 07:59; Stop 08/26/19 at 07:59; Status DC Midazolam HCl (Versed) 5 mg STK-MED ONCE .ROUTE ; Start 08/26/19 at 08:36; Stop 08/26/19 at 08:36; Status DC Fentanyl Citrate (Fentanyl 5ml Vial) 250 mcg STK-MED ONCE .ROUTE ; Start 08/26/19 at 08:36; Stop 08/26/19 at 08:37; Status DC Lidocaine HCl (Buffered Lidocaine 1%) 3 ml 1X ONCE IJ Last administered on 08/26/19at 09:30; Start 08/26/19 at 09:15; Stop 08/26/19 at 09:16; Status DC Midazolam HCl (Versed) 5 mg 1X ONCE IV Last administered on 08/26/19at 09:30; Start 08/26/19 at 09:15; Stop 08/26/19 at 09:16; Status DC Fentanyl Citrate (Fentanyl 5ml Vial) 250 mcg 1X ONCE IV Last administered on 08/26/19at 09:30; Start 08/26/19 at 09:15; Stop 08/26/19 at 09:16; Status DC Bumetanide (Bumex) 2 mg DAILY IV Last administered on 09/05/19at 08:07; Start 08/26/19 at 10:00; Stop 09/05/19 at 17:15; Status DC Potassium Chloride 75 meq/ Magnesium Sulfate 15 meq/ Multivitamins 10 ml/Chromium/ Copper/Manganese/ Seleni/Zn 0.5 ml/ Insulin Human Regular 15 unit/ Total Parenteral Nutrition/Amino Acids/Dextrose/ Fat Emulsion Intravenous 1,920 ml @ 80 mls/hr TPN CONT IV Last administered on 08/26/19at 21:59; Start 08/26/19 at 22:00; Stop 08/27/19 at 21:59; Status DC Metoclopramide HCl (Reglan Vial) 10 mg PRN Q3HRS PRN IVP NAUSEA/VOMITING-3rd choice Last administered on 09/01/19at 04:25; Start 08/27/19 at 16:45 Potassium Chloride 75 meq/ Magnesium Sulfate 15 meq/ Multivitamins 10 ml/Chromium/ Copper/Manganese/ Seleni/Zn 0.5 ml/ Insulin Human Regular 15 unit/ Total Parenteral Nutrition/Amino Acids/Dextrose/ Fat Emulsion Intravenous 1,920 ml @ 80 mls/hr TPN CONT IV Last administered on 08/27/19at 22:41; Start 08/27/19 at 22:00; Stop 08/28/19 at 21:59; Status DC Magnesium Sulfate 50 ml @ 25 mls/hr 1X ONCE IV Last administered on 08/28/19at 10:44; Start 08/28/19 at 09:00; Stop 08/28/19 at 10:59; Status DC Potassium Chloride/Water 100 ml @ 100 mls/hr 1X ONCE IV Last administered on 08/28/19at 09:37; Start 08/28/19 at 09:00; Stop 08/28/19 at 09:59; Status DC Duloxetine HCl (Cymbalta) 30 mg DAILY PO Last administered on 08/29/19at 09:48; Start 08/28/19 at 14:00; Stop 08/31/19 at 10:25; Status DC Potassium Chloride 80 meq/ Magnesium Sulfate 20 meq/ Multivitamins 10 ml/Chromium/ Copper/Manganese/ Seleni/Zn 0.5 ml/ Insulin Human Regular 15 unit/ Total Parenteral Nutrition/Amino Acids/Dextrose/ Fat Emulsion Intravenous 1,920 ml @ 80 mls/hr TPN CONT IV Last administered on 08/28/19at 21:42; Start 08/28/19 at 22:00; Stop 08/29/19 at 21:59; Status DC Potassium Chloride 80 meq/ Magnesium Sulfate 20 meq/ Multivitamins 10 ml/Chromium/ Copper/Manganese/ Seleni/Zn 0.5 ml/ Insulin Human Regular 15 unit/ Total Parenteral Nutrition/Amino Acids/Dextrose/ Fat Emulsion Intravenous 1,920 ml @ 80 mls/hr TPN CONT IV Last administered on 08/29/19at 22:20; Start 08/29/19 at 22:00; Stop 08/30/19 at 21:59; Status DC Lidocaine HCl (Buffered Lidocaine 1%) 3 ml STK-MED ONCE .ROUTE ; Start 08/30/19 at 09:54; Stop 08/30/19 at 09:55; Status DC Hydromorphone HCl (Dilaudid Standard [employer]) 12 mg STK-MED ONCE IV ; Start 08/19/19 at 15:50; Stop 08/30/19 at 11:24; Status DC Potassium Chloride 80 meq/ Magnesium Sulfate 20 meq/ Multivitamins 10 ml/Chromium/ Copper/Manganese/ Seleni/Zn 0.5 ml/ Insulin Human Regular 15 unit/ Total Parenteral Nutrition/Amino Acids/Dextrose/ Fat Emulsion Intravenous 1,920 ml @ 80 mls/hr TPN CONT IV Last administered on 08/30/19at 21:40; Start 08/30/19 at 22:00; Stop 08/31/19 at 21:59; Status DC Lidocaine HCl (Buffered Lidocaine 1%) 6 ml 1X ONCE INJ Last administered on 08/30/19at 14:15; Start 08/30/19 at 14:15; Stop 08/30/19 at 14:16; Status DC Potassium Chloride 80 meq/ Magnesium Sulfate 20 meq/ Multivitamins 10 ml/Chromium/ Copper/Manganese/ Seleni/Zn 1 ml/ Insulin Human Regular 15 unit/ To anthony Parenteral Nutrition/Amino Acids/Dextrose/ Fat Emulsion Intravenous 1,920 ml @ 80 mls/hr TPN CONT IV Last administered on 08/31/19at 22:04; Start 08/31/19 at 22:00; Stop 09/01/19 at 21:59; Status DC Potassium Chloride/Water 100 ml @ 100 mls/hr 1X ONCE IV Last administered on 09/01/19at 11:34; Start 09/01/19 at 11:00; Stop 09/01/19 at 11:59; Status DC Potassium Chloride 90 meq/ Magnesium Sulfate 20 meq/ Multivitamins 10 ml/Chromium/ Copper/Manganese/ Seleni/Zn 1 ml/ Insulin Human Regular 15 unit/ T otal Parenteral Nutrition/Amino Acids/Dextrose/ Fat Emulsion Intravenous 1,920 ml @ 80 mls/hr TPN CONT IV Last administered on 09/01/19at 22:57; Start 09/01/19 at 22:00; Stop 09/02/19 at 21:59; Status DC Potassium Chloride 90 meq/ Magnesium Sulfate 20 meq/ Multivitamins 10 ml/Chromium/ Copper/Manganese/ Seleni/Zn 1 ml/ Insulin Human Regular 15 unit/ Total Parenteral Nutrition/Amino Acids/Dextrose/ Fat Emulsion Intravenous 1,920 ml @ 80 mls/hr TPN CONT IV Last administered on 09/02/19at 22:48; Start at 22:00; Stop 09/03/19 at 21:59; Status DC Potassium Chloride 90 meq/ Magnesium Sulfate 20 meq/ Multivitamins 10 ml/Spanish Interpreter/Translator mium/ Copper/Manganese/ Seleni/Zn 1 ml/ Insulin Human Regular 15 unit/ Total Parenteral Nutrition/Amino Acids/Dextrose/ Fat Emulsion Intravenous 1,890 ml @ 78.75 mls/ hr TPN CONT IV Last administered on 09/03/19at 22:15; Start 09/03/19 at 22:00; Stop 09/04/19 at 21:59; Status DC Linezolid/Dextrose 300 ml @ 300 mls/hr Q12HR IV Last administered on 09/06/19at 21:08; Start 09/04/19 at 09:00; Stop 09/07/19 at 08:11; Status DC Daptomycin 450 mg/ Sodium Chloride 50 ml @ 100 mls/hr Q24H IV Last administered on 09/07/19at 09:25; Start 09/04/19 at 09:00; Stop 09/08/19 at 08:30; Status DC Potassium Chloride 90 meq/ Magnesium Sulfate 20 meq/ Multivitamins 10 ml/Chromium/ Copper/Manganese/ Seleni/Zn 1 ml/ Insulin Human Regular 15 unit/ Total Parenteral Nutrition/Amino Acids/Dextrose/ Fat Emulsion Intravenous 1,890 ml @ 78.75 mls/ hr TPN CONT IV Last administered on 09/04/19at 21:34; Start 09/04/19 at 22:00; Stop 09/05/19 at 21:59; Status DC Lorazepam (Ativan Inj) 2 mg STK-MED ONCE .ROUTE ; Start 09/04/19 at 14:58; Stop 09/04/19 at 14:58; Status DC Metoprolol Tartrate (Lopressor Vial) 5 mg 1X ONCE IVP Last administered on 09/04/19at 15:31; Start 09/04/19 at 15:15; Stop 09/04/19 at 15:16; Status DC Lorazepam (Ativan Inj) 2 mg 1X ONCE IVP Last administered on 09/04/19at 15:30; Start 09/04/19 at 15:15; Stop 09/04/19 at 15:16; Status DC Enoxaparin Sodium (Lovenox 40mg Syringe) 40 mg Q24H SQ Last administered on 09/23/19at 17:44; Start 09/04/19 at 17:00; Stop 09/25/19 at 06:50; Status DC Lorazepam (Ativan Inj) 1 mg PRN Q4HRS PRN IVP ANXIETY / AGITATION MILD-MOD Last administered on 09/18/19at 15:55; Start 09/04/19 at 19:15; Stop 09/20/19 at 11:45; Status DC Lorazepam (Ativan Inj) 2 mg PRN Q4HRS PRN IVP ANXIETY / AGITATION SEVERE Last administered on 09/19/19at 07:55; Start 09/04/19 at 19:15; Stop 09/20/19 at 11:45; Status DC Fentanyl Citrate (Fentanyl 2ml Vial) 50 mcg PRN Q4HRS PRN IVP SEVERE PAIN Last administered on 10/01/19at 05:15; Start 09/05/19 at 13:15; Stop 10/02/19 at 09:29; Status DC Fentanyl Citrate (Fentanyl 2ml Vial) 25 mcg PRN Q4HRS PRN IVP MODERATE PAIN Last administered on 10/01/19at 00:27; Start 09/05/19 at 13:15; Stop 10/02/19 at 09:30; Status DC Potassium Chloride 90 meq/ Magnesium Sulfate 20 meq/ Multivitamins 10 ml/Chromium/ Copper/Manganese/ Seleni/Zn 1 ml/ Insulin Human Regular 15 unit/ Total Parenteral Nutrition/Amino Acids/Dextrose/ Fat Emulsion Intravenous 1,890 ml @ 78.75 mls/ hr TPN CONT IV Last administered on 09/05/19at 22:18; Start 09/05/19 at 22:00; Stop 09/06/19 at 21:59; Status DC Furosemide (Lasix) 40 mg 1X ONCE IVP Last administered on 09/05/19at 21:51; Start 09/05/19 at 21:45; Stop 09/05/19 at 21:48; Status DC Albumin Human 100 ml @ 100 mls/hr 1X PRN PRN IV SEE COMMENTS; Start 09/06/19 at 01:30 Furosemide (Lasix) 40 mg [id number] IVP Last administered on 09/21/19at 08:04; Start 09/06/19 at 14:00; Stop 09/21/19 at 13:07; Status DC Potassium Chloride 90 meq/ Magnesium Sulfate 20 meq/ Multivitamins 10 ml/Chromium/ Copper/Manganese/ Seleni/Zn 1 ml/ Insulin Human Regular 15 unit/ Total Parenteral Nutrition/Amino Acids/Dextrose/ Fat Emulsion Intravenous 1,800 ml @ 75 mls/hr TPN CONT IV Last administered on 09/06/19at 22:31; Start 09/06/19 at 22:00; Stop 09/07/19 at 21:59; Status DC Potassium Chloride 90 meq/ Magnesium Sulfate 20 meq/ Multivitamins 10 ml/Chromium/ Copper/Manganese/ Seleni/Zn 1 ml/ Insulin Human Regular 15 unit/ Total Parenteral Nutrition/Amino Acids/Dextrose/ Fat Emulsion Intravenous 1,800 ml @ 75 mls/hr TPN CONT IV Last administered on 09/07/19at 22:28; Start 09/07/19 at 22:00; Stop 09/08/19 at 21:59; Status DC Potassium Chloride 110 meq/ Magnesium Sulfate 20 meq/ Multivitamins 10 ml/Chromium/ Copper/Manganese/ Seleni/Zn 1 ml/ Insulin Human Regular 15 unit/ Total Parenteral Nutrition/Amino Acids/Dextrose/ Fat Emulsion Intravenous 1,800 ml @ 75 mls/hr TPN CONT IV Last administered on 09/08/19at 22:01; Start 09/08/19 at 22:00; Stop 09/09/19 at 21:59; Status DC Saliva Substitute (Biotene Moisturizing Mouth) 2 spray PRN Q15MIN PRN PO DRY MOUTH; Start 09/08/19 at 11:00 Potassium Chloride 110 meq/ Magnesium Sulfate 20 meq/ Multivitamins 10 ml/Chromium/ Copper/Manganese/ Seleni/Zn 1 ml/ Insulin Human Regular 15 unit/ Total Parenteral Nutrition/Amino Acids/Dextrose/ Fat Emulsion Intravenous 1,800 ml @ 75 mls/hr TPN CONT IV Last administered on 09/09/19at 22:21; Start 09/09/19 at 22:00; Stop 09/10/19 at 21:59; Status DC Potassium Chloride 110 meq/ Magnesium Sulfate 20 meq/ Multivitamins 10 ml/Chromium/ Copper/Manganese/ Seleni/Zn 1 ml/ Insulin Human Regular 15 unit/ Total Parenteral Nutrition/Amino Acids/Dextrose/ Fat Emulsion Intravenous 1,800 ml @ 75 mls/hr TPN CONT IV Last administered on 09/10/19at 22:04; Start 09/10/19 at 22:00; Stop 09/11/19 at 21:59; Status DC Potassium Chloride 110 meq/ Magnesium Sulfate 20 meq/ Multivitamins 10 ml/Chromium/ Copper/Manganese/ Seleni/Zn 1 ml/ Insulin Human Regular 15 unit/ Total Parenteral Nutrition/Amino Acids/Dextrose/ Fat Emulsion Intravenous 1,800 ml @ 75 mls/hr TPN CONT IV Last administered on 09/11/19at 22:48; Start 09/11/19 at 22:00; Stop 09/12/19 at 21:59; Status DC Potassium Chloride 70 meq/ Magnesium Sulfate 20 meq/ Multivitamins 10 ml/Chromium/ Copper/Manganese/ Seleni/Zn 1 ml/ Insulin Human Regular 15 unit/ Total Parenteral Nutrition/Amino Acids/Dextrose/ Fat Emulsion Intravenous 1,800 ml @ 75 mls/hr TPN CONT IV Last administered on 09/12/19at 21:39; Start 09/12/19 at 22:00; Stop 09/13/19 at 21:59; Status DC Meropenem 500 mg/ Sodium Chloride 50 ml @ 100 mls/hr Q6HRS IV Last administered on 09/14/19at 06:02; Start 09/12/19 at 18:00; Stop 09/14/19 at 09:59; Status DC Barium Sulfate (Varibar Thin Liquid Apple) 148 gm 1X ONCE PO ; Start 09/13/19 at 11:45; Stop 09/13/19 at 11:49; Status DC Potassium Chloride 70 meq/ Magnesium Sulfate 20 meq/ Multivitamins 10 ml/Chromiu m/ Copper/Manganese/ Seleni/Zn 1 ml/ Insulin Human Regular 15 unit/ Total Parenteral Nutrition/Amino Acids/Dextrose/ Fat Emulsion Intravenous 1,800 ml @ 75 mls/hr TPN CONT IV Last administered on 09/13/19at 22:27; Start 09/13/19 at 22:00; Stop 09/14/19 at 21:59; Status DC Piperacillin Sod/ Tazobactam Sod 3.375 gm/Sodium Chloride 50 ml @ 100 mls/hr Q6HRS IV Last administered on 09/22/19at 06:10; Start 09/14/19 at 12:00; Stop 09/22/19 at 07:26; Status DC Potassium Chloride 70 meq/ Magnesium Sulfate 20 meq/ Multivitamins 10 ml/Chromium/ Copper/Manganese/ Seleni/Zn 1 ml/ Insulin Human Regular 15 unit/ Total Parenteral Nutrition/Amino Acids/Dextrose/ Fat Emulsion Intravenous 1,800 ml @ 75 mls/hr TPN CONT IV Last administered on 09/14/19at 22:03; Start at 22:00; Stop 09/15/19 at 21:59; Status DC Potassium Chloride 70 meq/ Magnesium Sulfate 20 meq/ Multivitamins 10 ml/Chromiu m/ Copper/Manganese/ Seleni/Zn 1 ml/ Insulin Human Regular 15 unit/ Total Parenteral Nutrition/Amino Acids/Dextrose/ Fat Emulsion Intravenous 1,800 ml @ 75 mls/hr TPN CONT IV Last administered on 09/15/19at 22:33; Start 09/15/19 at 22:00; Stop 09/16/19 at 21:59; Status DC Potassium Chloride 70 meq/ Magnesium Sulfate 20 meq/ Multivitamins 10 ml/Chromium/ Copper/Manganese/ Seleni/Zn 1 ml/ Insulin Human Regular 15 unit/ Total Parenteral Nutrition/Amino Acids/Dextrose/ Fat Emulsion Intravenous 1,800 ml @ 75 mls/hr TPN CONT IV Last administered on 09/16/19at 23:13; Start 09/16/19 at 22:00; Stop 09/17/19 at 21:59; Status DC Potassium Chloride 80 meq/ Magnesium Sulfate 20 meq/ Multivitamins 10 ml/Chromium/ Copper/Manganese/ Seleni/Zn 1 ml/ Insulin Human Regular 15 unit/ Total Parenteral Nutrition/Amino Acids/Dextrose/ Fat Emulsion Intravenous 1,800 ml @ 75 mls/hr TPN CONT IV Last administered on 09/17/19at 22:30; Start 09/17/19 at 22:00; Stop 09/18/19 at 21:59; Status DC Potassium Chloride 80 meq/ Magnesium Sulfate 20 meq/ Multivitamins 10 ml/Chromium/ Copper/Manganese/ Seleni/Zn 1 ml/ Insulin Human Regular 15 unit/ Total Parenteral Nutrition/Amino Acids/Dextrose/ Fat Emulsion Intravenous 1,800 ml @ 75 mls/hr TPN CONT IV Last administered on 09/18/19at 21:54; Start 09/18/19 at 22:00; Stop 09/19/19 at 21:59; Status DC Potassium Chloride/Water 100 ml @ 100 mls/hr 1X ONCE IV Last administered on 09/19/19at 10:15; Start 09/19/19 at 10:00; Stop 09/19/19 at 10:59; Status DC Potassium Chloride 90 meq/ Magnesium Sulfate 20 meq/ Multivitamins 10 ml/Chromium/ Copper/Manganese/ Seleni/Zn 1 ml/ Insulin Human Regular 20 unit/ Total Parenteral Nutrition/Amino Acids/Dextrose/ Fat Emulsion Intravenous 1,800 ml @ 75 mls/hr TPN CONT IV Last administered on 09/19/19at 22:28; Start 09/19/19 at 22:00; Stop 09/20/19 at 21:59; Status DC Potassium Chloride 90 meq/ Magnesium Sulfate 20 meq/ Multivitamins 10 ml/Chromium/ Copper/Manganese/ Seleni/Zn 1 ml/ Insulin Human Regular 20 unit/ Total Parenteral Nutrition/Amino Acids/Dextrose/ Fat Emulsion Intravenous 1,800 ml @ 75 mls/hr TPN CONT IV Last administered on 09/20/19at 22:08; Start 09/20/19 at 22:00; Stop 09/21/19 at 21:59; Status DC Lorazepam (Ativan Inj) 0.25 mg PRN Q4HRS PRN IVP ANXIETY / AGITATION Last administered on 10/30/19at 00:27; Start 09/21/19 at 07:30 Potassium Chloride 90 meq/ Magnesium Sulfate 20 meq/ Multivitamins 10 ml/Chromium/ Copper/Manganese/ Seleni/Zn 1 ml/ Insulin Human Regular 20 unit/ Total Parenteral Nutrition/Amino Acids/Dextrose/ Fat Emulsion Intravenous 1,800 ml @ 75 mls/hr TPN CONT IV Last administered on 09/21/19at 23:13; Start 09/21/19 at 22:00; Stop 09/22/19 at 21:59; Status DC Furosemide (Lasix) 40 mg DAILY IVP Last administered on 09/23/19at 11:14; Start 09/21/19 at 13:30; Stop 09/25/19 at 09:12; Status DC Fluoxetine HCl (PROzac) 20 mg QHS PEG Last administered on 11/04/19at 21:20; Start 09/22/19 at 21:00 Fentanyl (Duragesic 50mcg/ Hr Patch) 1 patch Q72H TD Last administered on 09/22/19at 21:22; Start 09/22/19 at 21:00; Stop 10/01/19 at 12:00; Status DC Potassium Chloride 40 meq/ Potassium Acetate 60 meq/Magnesium Sulfate 10 meq/ Multivitamins 10 ml/Chromium/ Copper/Manganese/ Seleni/Zn 1 ml/ Insulin Human Regular 20 unit/ Total Parenteral Nutrition/Amino Acids/Dextrose/ Fat Emulsion Intravenous 1,800 ml @ 75 mls/hr TPN CONT IV Last administered on 09/23/19at 00:03; Start 09/22/19 at 22:00; Stop 09/23/19 at 21:59; Status DC Potassium Acetate 80 meq/Magnesium Sulfate 5 meq/ Multivitamins 10 ml/Chromium/ Copper/Manganese/ Seleni/Zn 1 ml/ Insulin Human Regular 20 unit/ Total Parenteral Nutrition/Amino Acids/Dextrose/ Fat Emulsion Intravenous 1,920 ml @ 80 mls/hr TPN CONT IV Last administered on 09/23/19at 21:59; Start 09/23/19 at 22:00; Stop 09/24/19 at 21:59; Status DC Potassium Acetate 60 meq/Magnesium Sulfate 5 meq/ Multivitamins 10 ml/Chromium/ Copper/Manganese/ Seleni/Zn 1 ml/ Insulin Human Regular 30 unit/ Total Parenteral Nutrition/Amino Acids/Dextrose/ Fat Emulsion Intravenous 1,920 ml @ 80 mls/hr TPN CONT IV Last administered on 09/24/19at 21:54; Start 09/24/19 at 22:00; Stop 09/25/19 at 21:59; Status DC Norepinephrine Bitartrate 8 mg/ Dextrose 258 ml @ 13.332 mls/ hr CONT PRN IV PER PROTOCOL Last administered on 10/20/19at 09:09; Start 09/25/19 at 06:30 Albumin Human 500 ml @ 125 mls/hr 1X ONCE IV Last administered on 09/25/19at 08:10; Start 09/25/19 at 08:15; Stop 09/25/19 at 12:14; Status DC Potassium Acetate 40 meq/Magnesium Sulfate 5 meq/ Multivitamins 10 ml/Chromium/ Copper/Manganese/ Seleni/Zn 1 ml/ Insulin Human Regular 30 unit/ Total Parenteral Nutrition/Amino Acids/Dextrose/ Fat Emulsion Intravenous 1,920 ml @ 80 mls/hr TPN CONT IV Last administered on 09/25/19at 22:23; Start 09/25/19 at 22:00; Stop 09/26/19 at 21:59; Status DC Meropenem 1 gm/ Sodium Chloride 100 ml @ 200 mls/hr Q8HRS IV ; Start 09/25/19 at 14:00; Status Cancel Meropenem 1 gm/ Sodium Chloride 100 ml @ 200 mls/hr Q8HRS IV Last administered on 09/25/19at 11:04; Start 09/25/19 at 10:00; Stop 09/25/19 at 13:00; Status DC Meropenem 1 gm/ Sodium Chloride 100 ml @ 200 mls/hr Q12HR IV Last administered on 10/13/19at 08:27; Start 09/25/19 at 21:00; Stop 10/13/19 at 08:56; Status DC Sodium Chloride 1,000 ml @ 1,000 mls/hr 1X ONCE IV Last administered on 09/25/19at 11:06; Start 09/25/19 at 10:45; Stop 09/25/19 at 11:44; Status DC Micafungin Sodium 100 mg/Dextrose 100 ml @ 100 mls/hr Q24H IV Last administered on 10/12/19at 12:34; Start 09/25/19 at 11:00; Stop 10/13/19 at 08:56; Status DC Daptomycin 410 mg/ Sodium Chloride 50 ml @ 100 mls/hr Q24H IV Last administered on 09/27/19at 13:33; Start 09/25/19 at 14:00; Stop 09/28/19 at 08:30; Status DC Midazolam HCl (Versed) 2 mg STK-MED ONCE .ROUTE ; Start 09/25/19 at 14:47; Stop 09/25/19 at 14:48; Status DC Fentanyl Citrate (Fentanyl 2ml Vial) 100 mcg STK-MED ONCE .ROUTE ; Start 09/25/19 at 14:47; Stop 09/25/19 at 14:48; Status DC Flumazenil (Romazicon) 0.5 mg STK-MED ONCE IV ; Start 09/25/19 at 14:48; Stop 09/25/19 at 14:48; Status DC Naloxone HCl (Narcan) 0.4 mg STK-MED ONCE .ROUTE ; Start 09/25/19 at 14:48; Stop 09/25/19 at 14:48; Status DC Lidocaine HCl (Lidocaine 1% 20ml Vial) 20 ml STK-MED ONCE .ROUTE ; Start 09/25/19 at 14:48; Stop 09/25/19 at 14:48; Status DC Midazolam HCl (Versed) 2 mg 1X ONCE IV Last administered on 09/25/19at 15:28; Start 09/25/19 at 15:00; Stop 09/25/19 at 15:01; Status DC Fentanyl Citrate (Fentanyl 2ml Vial) 100 mcg 1X ONCE IV Last administered on 09/25/19at 15:28; Start 09/25/19 at 15:00; Stop 09/25/19 at 15:01; Status DC Lidocaine HCl (Lidocaine 1% 20ml Vial) 20 ml 1X ONCE INJ Last administered on 09/25/19at 15:30; Start 09/25/19 at 15:00; Stop 09/25/19 at 15:01; Status DC Sodium Chloride 1,000 ml @ 100 mls/hr Q10H IV Last administered on 10/04/19at 07:30; Start 09/25/19 at 20:00; Stop 10/04/19 at 11:26; Status DC Sodium Bicarbonate (Sodium Bicarb Adult 8.4% Syr) 50 meq 1X ONCE IV Last administered on 09/25/19at 21:47; Start 09/25/19 at 22:00; Stop 09/25/19 at 22:01; Status DC Potassium Acetate 40 meq/Magnesium Sulfate 5 meq/ Multivitamins 10 ml/Chromium/ Copper/Manganese/ Seleni/Zn 1 ml/ Insulin Human Regular 30 unit/ Total Parentera l Nutrition/Amino Acids/Dextrose/ Fat Emulsion Intravenous 1,920 ml @ 80 mls/hr TPN CONT IV Last administered on 09/26/19at 22:28; Start 09/26/19 at 22:00; Stop 09/27/19 at 21:59; Status DC Sodium Chloride 500 ml @ 500 mls/hr 1X ONCE IV Last administered on 09/27/19at 06:39; Start 09/27/19 at 06:45; Stop 09/27/19 at 07:44; Status DC Potassium Acetate 40 meq/Magnesium Sulfate 5 meq/ Multivitamins 10 ml/Chromium/ Copper/Manganese/ Seleni/Zn 1 ml/ Insulin Human Regular 30 unit/ Total Parenteral Nutrition/Amino Acids/Dextrose/ Fat Emulsion Intravenous 1,920 ml @ 80 mls/hr TPN CONT IV Last administered on 09/27/19at 22:03; Start 09/27/19 at 22:00; Stop 09/28/19 at 21:59; Status DC Metoprolol Tartrate (Lopressor Vial) 5 mg PRN Q6HRS PRN IVP HYPERTENSION Last administered on 10/30/19at 18:01; Start 09/28/19 at 09:00 Potassium Acetate 40 meq/Magnesium Sulfate 5 meq/ Multivitamins 10 ml/Chromium/ Copper/Manganese/ Seleni/Zn 1 ml/ Insulin Human Regular 30 unit/ Total Parenteral Nutrition/Amino Acids/Dextrose/ Fat Emulsion Intravenous 1,920 ml @ 80 mls/hr TPN CONT IV Last administered on 09/28/19at 21:26; Start 09/28/19 at 22:00; Stop 09/29/19 at 21:59; Status DC Potassium Acetate 40 meq/Magnesium Sulfate 5 meq/ Multivitamins 10 ml/Chromium/ Copper/Manganese/ Seleni/Zn 1 ml/ Insulin Human Regular 30 unit/ Total Parenteral Nutrition/Amino Acids/Dextrose/ Fat Emulsion Intravenous 1,920 ml @ 80 mls/hr TPN CONT IV Last administered on 09/29/19at 23:23; Start 09/29/19 at 22:00; Stop 09/30/19 at 21:59; Status DC Potassium Acetate 40 meq/Magnesium Sulfate 5 meq/ Multivitamins 10 ml/Chromium/ Copper/Manganese/ Seleni/Zn 1 ml/ Insulin Human Regular 30 unit/ Total Parenteral Nutrition/Amino Acids/Dextrose/ Fat Emulsion Intravenous 1,920 ml @ 80 mls/hr TPN CONT IV Last administered on 09/30/19at 21:35; Start 09/30/19 at 22:00; Stop 10/01/19 at 21:59; Status DC Furosemide (Lasix) 20 mg 1X ONCE IVP Last administered on 10/01/19at 06:26; Start 10/01/19 at 06:15; Stop 10/01/19 at 06:16; Status DC Methylprednisolone Sodium Succinate (SOLU-Medrol 125MG VIAL) 125 mg 1X ONCE IV Last administered on 10/01/19at 06:26; Start 10/01/19 at 06:15; Stop 10/01/19 at 06:16; Status DC Albuterol/ Ipratropium (Duoneb) 3 ml Q4HRS NEB Last administered on 11/05/19at 08:53; Start 10/01/19 at 08:00 Fentanyl Citrate 30 ml @ 0 mls/hr CONT PRN IV SEE PROTOCOL Last administered on 10/22/19at 08:03; Start 10/01/19 at 06:00; Stop 10/22/19 at 12:42; Status DC Propofol 100 ml @ 0 mls/hr CONT PRN IV SEE PROTOCOL Last administered on 10/08/19at 23:50; Start 10/01/19 at 06:00 Fentanyl Citrate (Fentanyl 2ml Vial) 25 mcg PRN Q1HR PRN IV SEE COMMENTS Last administered on 11/04/19at 18:08; Start 10/01/19 at 06:00 Fentanyl Citrate (Fentanyl 2ml Vial) 50 mcg PRN Q1HR PRN IV SEE COMMENTS Last administered on 10/30/19at 18:02; Start 10/01/19 at 06:00 Chlorhexidine Gluconate (Peridex) 15 ml BID MM ; Start 10/01/19 at 09:00; Stop 10/01/19 at 07:58; Status DC Potassium Acetate 40 meq/Magnesium Sulfate 5 meq/ Multivitamins 10 ml/Chromium/ Copper/Manganese/ Seleni/Zn 1 ml/ Insulin Human Regular 30 unit/ Total Parenteral Nutrition/Amino Acids/Dextrose/ Fat Emulsion Intravenous 1,920 ml @ 80 mls/hr TPN CONT IV Last administered on 10/01/19at 21:19; Start 10/01/19 at 22:00; Stop 10/02/19 at 21:59; Status DC Acetylcysteine (Mucomyst 20% Resp Treatment) 600 mg BID NEB Last administered on 10/07/19at 09:33; Start 10/01/19 at 21:00; Stop 10/07/19 at 10:39; Status DC Magnesium Sulfate 100 ml @ 25 mls/hr 1X ONCE IV Last administered on 10/01/19at 15:48; Start 10/01/19 at 15:45; Stop 10/01/19 at 19:44; Status DC Potassium Acetate 40 meq/Magnesium Sulfate 5 meq/ Multivitamins 10 ml/Chromium/ Copper/Manganese/ Seleni/Zn 1 ml/ Insulin Human Regular 30 unit/ Total Parenteral Nutrition/Amino Acids/Dextrose/ Fat Emulsion Intravenous 1,920 ml @ 80 mls/hr TPN CONT IV Last administered on 10/02/19at 21:35; Start 10/02/19 at 22:00; Stop 10/03/19 at 21:59; Status DC Potassium Chloride/Water 100 ml @ 100 mls/hr Q1H IV Last administered on 10/03/19at 08:31; Start 10/03/19 at 07:00; Stop 10/03/19 at 08:59; Status DC Potassium Acetate 40 meq/Magnesium Sulfate 5 meq/ Multivitamins 10 ml/Chromium/ Copper/Manganese/ Seleni/Zn 1 ml/ Insulin Human Regular 30 unit/ Total Parenteral Nutrition/Amino Acids/Dextrose/ Fat Emulsion Intravenous 1,920 ml @ 80 mls/hr TPN CONT IV Last administered on 10/03/19at 21:54; Start 10/03/19 at 22:00; Stop 10/04/19 at 19:34; Status DC Lidocaine HCl (Buffered Lidocaine 1%) 3 ml STK-MED ONCE .ROUTE ; Start 10/03/19 at 12:14; Stop 10/03/19 at 12:14; Status DC Lidocaine HCl (Buffered Lidocaine 1%) 3 ml 1X ONCE IJ Last administered on 10/03/19at 13:11; Start 10/03/19 at 13:00; Stop 10/03/19 at 13:01; Status DC Magnesium Sulfate 50 ml @ 25 mls/hr 1X ONCE IV ; Start 10/04/19 at 08:15; Stop 10/04/19 at 10:14; Status DC Potassium Acetate 40 meq/Magnesium Sulfate 10 meq/ Multivitamins 10 ml/Chromium/ Copper/Manganese/ Seleni/Zn 1 ml/ Insulin Human Regular 20 unit/ Total Parenteral Nutrition/Amino Acids/Dextrose/ Fat Emulsion Intravenous 1,920 ml @ 80 mls/hr TPN CONT IV Last administered on 10/04/19at 21:32; Start 10/04/19 at 22:00; Stop 10/05/19 at 21:59; Status DC Potassium Chloride/Water 100 ml @ 100 mls/hr Q1H IV Last administered on 10/05/19at 09:12; Start 10/05/19 at 08:00; Stop 10/05/19 at 09:59; Status DC Alteplase, Recombinant (Cathflo For Central Catheter Clearance) 4 mg 1X ONCE INT CAT ; Start 10/05/19 at 09:15; Stop 10/05/19 at 09:16; Status UNV Alteplase, Recombinant (Cathflo For Central Catheter Clearance) 4 mg 1X ONCE INT CAT ; Start 10/05/19 at 09:15; Stop 10/05/19 at 09:16; Status UNV Alteplase, Recombinant (Cathflo For Central Catheter Clearance) 4 mg 1X ONCE INT CAT ; Start 10/05/19 at 09:15; Stop 10/05/19 at 09:16; Status UNV Alteplase, Recombinant 4 mg/ Sodium Chloride 20 ml @ 20 mls/hr 1X ONCE IV Last administered on 10/05/19at 10:10; Start 10/05/19 at 10:00; Stop 10/05/19 at 10:59; Status DC Alteplase, Recombinant 4 mg/ Sodium Chloride 20 ml @ 20 mls/hr 1X ONCE IV Last administered on 10/05/19at 10:09; Start 10/05/19 at 10:00; Stop 10/05/19 at 10:59; Status DC Alteplase, Recombinant 4 mg/ Sodium Chloride 20 ml @ 20 mls/hr 1X ONCE IV Last administered on 10/05/19at 10:09; Start 10/05/19 at 10:00; Stop 10/05/19 at 10:59; Status DC Potassium Acetate 60 meq/Magnesium Sulfate 10 meq/ Multivitamins 10 ml/Chromium/ Copper/Manganese/ Seleni/Zn 1 ml/ Insulin Human Regular 20 unit/ Total Parenteral Nutrition/Amino Acids/Dextrose/ Fat Emulsion Intravenous 1,920 ml @ 80 mls/hr TPN CONT IV Last administered on 10/05/19at 21:55; Start 10/05/19 at 22:00; Stop 10/06/19 at 21:59; Status DC Albumin Human 500 ml @ 125 mls/hr 1X ONCE IV Last administered on 10/06/19at 12:01; Start 10/06/19 at 11:15; Stop 10/06/19 at 15:14; Status DC Sodium Chloride 500 ml @ 500 mls/hr 1X ONCE IV Last administered on 10/06/19at 13:50; Start 10/06/19 at 11:15; Stop 10/06/19 at 12:14; Status DC Potassium Acetate 60 meq/Magnesium Sulfate 14 meq/ Multivitamins 10 ml/Chromium/ Copper/Manganese/ Seleni/Zn 1 ml/ Insulin Human Regular 20 unit/ Total Parenteral Nutrition/Amino Acids/Dextrose/ Fat Emulsion Intravenous 1,920 ml @ 80 mls/hr TPN CONT IV Last administered on 10/06/19at 22:26; Start 10/06/19 at 22:00; Stop 10/07/19 at 21:59; Status DC Ciprofloxacin/ Dextrose 200 ml @ 200 mls/hr Q12HR IV Last administered on 10/12at 08:27; Start 10/06/19 at 21:00; Stop 10/13/19 at 08:56; Status DC Albumin Human 250 ml @ 62.5 mls/hr 1X ONCE IV Last administered on 10/07/19at 11:09; Start 10/07/19 at 11:00; Stop 10/07/19 at 14:59; Status DC Furosemide (Lasix) 20 mg 1X ONCE IVP Last administered on 10/07/19at 14:52; Start 10/07/19 at 10:45; Stop 10/07/19 at 10:49; Status DC Potassium Acetate 60 meq/Magnesium Sulfate 14 meq/ Multivitamins 10 ml/Chromium/ Copper/Manganese/ Seleni/Zn 1 ml/ Insulin Human Regular 15 unit/ Total Par enteral Nutrition/Amino Acids/Dextrose/ Fat Emulsion Intravenous 1,920 ml @ 80 mls/hr TPN CONT IV Last administered on 10/07/19at 22:08; Start 10/07/19 at 22:00; Stop 10/08/19 at 21:59; Status DC Potassium Acetate 60 meq/Magnesium Sulfate 14 meq/ Multivitamins 10 ml/Chromium/ Copper/Manganese/ Seleni/Zn 1 ml/ Insulin Human Regular 15 unit/ Total Parenteral Nutrition/Amino Acids/Dextrose/ Fat Emulsion Intravenous 1,920 ml @ 80 mls/hr TPN CONT IV Last administered on 10/08/19at 22:12; Start 10/08/19 at 22:00; Stop 10/09/19 at 21:59; Status DC Potassium Acetate 60 meq/Magnesium Sulfate 14 meq/ Multivitamins 10 ml/Chromium/ Copper/Manganese/ Seleni/Zn 1 ml/ Insulin Human Regular 15 unit/ Total Parenteral Nutrition/Amino Acids/Dextrose/ Fat Emulsion Intravenous 1,920 ml @ 80 mls/hr TPN CONT IV Last administered on 10/09/19at 22:22; Start 10/09/19 at 22:00; Stop 10/10/19 at 21:59; Status DC Furosemide (Lasix) 20 mg 1X ONCE IVP Last administered on 10/10/19at 11:07; Start 10/10/19 at 10:30; Stop 10/10/19 at 10:34; Status DC Potassium Acetate 60 meq/Magnesium Sulfate 14 meq/ Multivitamins 10 ml/Chromium/ Copper/Manganese/ Seleni/Zn 1 ml/ Insulin Human Regular 15 unit/ Sodium Chloride 20 meq/Total Parenteral Nutrition/Amino Acids/Dextrose/ Fat Emulsion Intravenous 1,920 ml @ 80 mls/hr TPN CONT IV Last administered on 10/10/19at 21:54; Start 10/10/19 at 22:00; Stop 10/11/19 at 21:59; Status DC Potassium Acetate 30 meq/Magnesium Sulfate 14 meq/ Multivitamins 10 ml/Chromium/ Copper/Manganese/ Seleni/Zn 1 ml/ Insulin Human Regular 15 unit/ Sodium Chloride 20 meq/Potassium Chloride 30 meq/ Total Parenteral Nutrition/Amino Acids/Dextrose/ Fat Emulsion Intravenous 1,920 ml @ 80 mls/hr TPN CONT IV Last administered on 10/11/19at 21:46; Start 10/11/19 at 22:00; Stop 10/12/19 at 21:59; Status DC Sodium Chloride 80 meq/Potassium Chloride 30 meq/ Potassium Acetate 30 meq/Magnesium Sulfate 14 meq/ Multivitamins 10 ml/Chromium/ Copper/Manganese/ Seleni/Zn 1 ml/ Insulin Human Regular 15 unit/ Total Parenteral Nutrition/Amino Acids/Dextrose/ Fat Emulsion Intravenous 1,920 ml @ 80 mls/hr TPN CONT IV Last administered on 10/12/19at 22:33; Start 10/12/19 at 22:00; Stop 10/13/19 at 21:59; Status DC Furosemide (Lasix) 40 mg 1X ONCE IVP Last administered on 10/12/19at 16:27; Start 10/12/19 at 15:30; Stop 10/12/19 at 15:33; Status DC Albumin Human 250 ml @ 62.5 mls/hr 1X ONCE IV Last administered on 10/12/19at 16:27; Start 10/12/19 at 15:30; Stop 10/12/19 at 19:29; Status DC Sodium Chloride 80 meq/Potassium Chloride 30 meq/ Potassium Acetate 30 meq/Magnesium Sulfate 14 meq/ Multivitamins 10 ml/Chromium/ Copper/Manganese/ Seleni/Zn 1 ml/ Insulin Human Regular 15 unit/ Total Parenteral Nutrition/Amino Acids/Dextrose/ Fat Emulsion Intravenous 1,920 ml @ 80 mls/hr TPN CONT IV Last administered on 10/13/19at 22:25; Start 10/13/19 at 22:00; Stop 10/14/19 at 21:59; Status DC Sodium Chloride 80 meq/Potassium Chloride 30 meq/ Potassium Acetate 30 meq/Magnesium Sulfate 14 meq/ Multivitamins 10 ml/Chromium/ Copper/Manganese/ Seleni/Zn 1 ml/ Insulin Human Regular 15 unit/ Total Parenteral Nutrition/Amino Acids/Dextrose/ Fat Emulsion Intravenous 1,920 ml @ 80 mls/hr TPN CONT IV Last administered on 10/14/19at 21:32; Start 10/14/19 at 22:00; Stop 10/15/19 at 21:59; Status DC Sodium Chloride 80 meq/Potassium Chloride 30 meq/ Potassium Acetate 30 meq/Magnesium Sulfate 14 meq/ Multivitamins 10 ml/Chromium/ Copper/Manganese/ Seleni/Zn 1 ml/ Insulin Human Regular 15 unit/ Total Parenteral Nutrition/Amino Acids/Dextrose/ Fat Emulsion Intravenous 1,920 ml @ 80 mls/hr TPN CONT IV Last administered on 10/15/19at 21:53; Start 10/15/19 at 22:00; Stop 10/16/19 at 21:59; Status DC Acetylcysteine (Mucomyst 20% Resp Treatment) 600 mg RTBID NEB Last administered on 11/05/19at 08:00; Start 10/15/19 at 12:00 Sodium Chloride 80 meq/Potassium Chloride 30 meq/ Potassium Acetate 30 meq/Magnesium Sulfate 14 meq/ Multivitamins 10 ml/Chromium/ Copper/Manganese/ Seleni/Zn 1 ml/ Insulin Human Regular 15 unit/ Total Parenteral Nutrition/Amino Acids/Dextrose/ Fat Emulsion Intravenous 1,920 ml @ 80 mls/hr TPN CONT IV Last administered on 10/16/19at 22:06; Start 10/16/19 at 22:00; Stop 10/17/19 at 21:59; Status DC Meropenem 500 mg/ Sodium Chloride 50 ml @ 100 mls/hr Q6HRS IV Last administered on 11/05/19at 05:26; Start 10/16/19 at 18:00 Daptomycin 500 mg/ Sodium Chloride 50 ml @ 100 mls/hr Q24H IV Last administered on 10/24/19at 21:47; Start 10/16/19 at 19:00; Stop 10/25/19 at 08:13; Status DC Sodium Chloride 80 meq/Potassium Chloride 30 meq/ Potassium Acetate 30 meq/Magnesium Sulfate 14 meq/ Multivitamins 10 ml/Chromium/ Copper/Manganese/ Seleni/Zn 1 ml/ Insulin Human Regular 15 unit/ Total Parenteral Nutrition/Amino Acids/Dextrose/ Fat Emulsion Intravenous 1,920 ml @ 80 mls/hr TPN CONT IV Last administered on 10/17/19at 22:09; Start 10/17/19 at 22:00; Stop 10/18/19 at 21:59; Status DC Heparin Sodium (Porcine) 1000 unit/Sodium Chloride 1,001 ml @ 1,001 mls/hr 1X ONCE IRR ; Start 10/18/19 at 06:00; Stop 10/18/19 at 06:59; Status DC Propofol (Diprivan) 200 mg STK-MED ONCE IV ; Start 10/18/19 at 07:44; Stop 10/18/19 at 07:44; Status DC Lidocaine HCl (Lidocaine Pf 2% Vial) 5 ml STK-MED ONCE .ROUTE ; Start 10/18/19 at 07:44; Stop 10/18/19 at 07:44; Status DC Fentanyl Citrate (Fentanyl 2ml Vial) 100 mcg STK-MED ONCE .ROUTE ; Start 10/18/19 at 07:44; Stop 10/18/19 at 07:44; Status DC Rocuronium [place] (Zemuron) 100 mg STK-MED ONCE .ROUTE ; Start 10/18/19 at 07:44; Stop 10/18/19 at 07:44; Status DC Micafungin Sodium 100 mg/Dextrose 100 ml @ 100 mls/hr Q24H IV Last administered on 11/05/19at 09:37; Start 10/18/19 at 08:30 Bupivacaine HCl/ Epinephrine Bitart (Sensorcain-Epi 0.5%-1:[id number] Mpf) 30 ml STK-MED ONCE .ROUTE ; Start 10/18/19 at 08:34; Stop 10/18/19 at 08:35; Status DC Iohexol (Omnipaque 300 Mg/ml) 50 ml STK-MED ONCE .ROUTE Last administered on 10/18/19at 13:30; Start 10/18/19 at 08:35; Stop 10/18/19 at 08:35; Status DC Sodium Chloride 80 meq/Potassium Chloride 30 meq/ Potassium Acetate 30 meq/Magnesium Sulfate 14 meq/ Multivitamins 10 ml/Chromium/ Copper/Manganese/ Seleni/Zn 1 ml/ Insulin Human Regular 15 unit/ Total Parenteral Nutrition/Amino Acids/Dextrose/ Fat Emulsion Intravenous 1,920 ml @ 80 mls/hr TPN CONT IV Last administered on 10/19/19at 01:22; Start 10/18/19 at 22:00; Stop 10/19/19 at 21:59; Status DC Phenylephrine HCl (Brayden-Synephrine Inj) 10 mg STK-MED ONCE .ROUTE ; Start 10/18/19 at 10:15; Stop 10/18/19 at 10:15; Status DC Desflurane (Suprane) 90 ml STK-MED ONCE IH ; Start 10/18/19 at 10:18; Stop 10/18/19 at 10:19; Status DC Albumin Human 500 ml @ As Directed STK-MED ONCE IV ; Start 10/18/19 at 11:06; Stop 10/18/19 at 11:06; Status DC Vasopressin (Vasostrict) 20 unit STK-MED ONCE .ROUTE ; Start 10/18/19 at 12:23; Stop 10/18/19 at 12:23; Status DC Phenylephrine HCl (Brayden-Synephrine Inj) 10 mg STK-MED ONCE .ROUTE ; Start 10/18/19 at 13:33; Stop 10/18/19 at 13:33; Status DC Phenylephrine HCl (Brayden-Synephrine Inj) 10 mg STK-MED ONCE .ROUTE ; Start 10/18/19 at 13:33; Stop 10/18/19 at 13:33; Status DC Ondansetron HCl (Zofran) 4 mg STK-MED ONCE .ROUTE ; Start 10/18/19 at 13:33; Stop 10/18/19 at 13:33; Status DC Enoxaparin Sodium (Lovenox 40mg Syringe) 40 mg Q24H SQ Last administered on 11/05/19at 09:35; Start 10/19/19 at 08:00 Sodium Chloride (Normal Saline Flush) 3 ml QSHIFT PRN IV AFTER MEDS AND BLOOD DRAWS; Start 10/18/19 at 14:45 Naloxone HCl (Narcan) 0.4 mg PRN Q2MIN PRN IV SEE INSTRUCTIONS; Start 10/18/19 at 14:45 Sodium Chloride 1,000 ml @ 25 mls/hr Q24H IV Last administered on 11/03/19at 14:33; Start 10/18/19 at 14:33 Morphine Sulfate (Morphine Sulfate) 1 mg PRN Q1HR PRN IV PAIN; Start 10/18/19 at 14:45 Midazolam HCl 100 mg/Sodium Chloride 100 ml @ 1 mls/hr CONT PRN IV SEE I/O RECORD Last administered on 10/21/19at 18:48; Start 10/18/19 at 14:45 Phenylephrine HCl (PHENYLEPHRINE in 0.9% NACL PF) 1 mg STK-MED ONCE IV ; Start 10/18/19 at 14:44; Stop 10/18/19 at 14:45; Status DC Ephedrine Sulfate (ePHEDrine PF IN SALINE SYRINGE) 50 mg STK-MED ONCE IV ; Start 10/18/19 at 14:45; Stop 10/18/19 at 14:45; Status DC Vasopressin 20 unit/Dextrose 101 ml @ 12 mls/hr CONT PRN IV SEE I/O RECORD Last administered on 10/25/19at 04:17; Start 10/18/19 at 15:30 Sodium Chloride 1,000 ml @ 1,000 mls/hr 1X ONCE IV Last administered on 10/18/19at 15:42; Start 10/18/19 at 15:45; Stop 10/18/19 at 16:44; Status DC Albumin Human 500 ml @ 125 mls/hr 1X ONCE IV ; Start 10/18/19 at 16:00; Stop 10/18/19 at 19:59; Status DC Albumin Human 500 ml @ 125 mls/hr PRN Q1HR PRN IV PER PROTOCOL; Start 10/18/19 at 15:45 Magnesium Sulfate 50 ml @ 25 mls/hr 1X ONCE IV Last administered on 10/18/19at 17:02; Start 10/18/19 at 16:30; Stop 10/18/19 at 18:29; Status DC Sodium Bicarbonate (Sodium Bicarb Adult 8.4% Syr) 50 meq STK-MED ONCE .ROUTE ; Start 10/18/19 at 16:20; Stop 10/18/19 at 16:20; Status DC Sodium Bicarbonate (Sodium Bicarb Adult 8.4% Syr) 100 meq 1X ONCE IV Last administered on 10/18/19at 17:07; Start 10/18/19 at 16:30; Stop 10/18/19 at 16:31; Status DC Sodium Bicarbonate 150 meq/Dextrose 1,150 ml @ 75 mls/hr 1X ONCE IV Last administered on 10/18/19at 20:02; Start 10/18/19 at 16:30; Stop 10/19/19 at 07:49; Status DC Sodium Chloride 80 meq/Potassium Chloride 30 meq/ Potassium Acetate 30 meq/Magnesium Sulfate 14 meq/ Multivitamins 10 ml/Chromium/ Copper/Manganese/ Seleni/Zn 1 ml/ Insulin Human Regular 15 unit/ Total Parenteral Nutrition/Amino Acids/Dextrose/ Fat Emulsion Intravenous 1,920 ml @ 80 mls/hr TPN CONT IV Last administered on 10/19/19at 23:05; Start 10/19/19 at 22:00; Stop 10/20/19 at 21:59; Status DC Sodium Chloride 100 meq/Potassium Chloride 30 meq/ Potassium Acetate 30 meq/Magnesium Sulfate 12 meq/ Multivitamins 10 ml/Chromium/ Copper/Manganese/ Seleni/Zn 1 ml/ Insulin Human Regular 15 unit/ Total Parenteral Nutrition/Amino Acids/Dextrose/ Fat Emulsion Intravenous 1,920 ml @ 80 mls/hr TPN CONT IV L ast administered on 10/20/19at 21:52; Start 10/20/19 at 22:00; Stop 10/21/19 at 21:59; Status DC Sodium Chloride 100 meq/Potassium Chloride 30 meq/ Potassium Acetate 30 meq/Magnesium Sulfate 12 meq/ Multivitamins 10 ml/Chromium/ Copper/Manganese/ Seleni/Zn 1 ml/ Insulin Human Regular 15 unit/ Total Parenteral Nutrition/Amino Acids/Dextrose/ Fat Emulsion Intravenous 1,920 ml @ 80 mls/hr TPN CONT IV Last administered on 10/21/19at 21:46; Start 10/21/19 at 22:00; Stop 10/22/19 at 21:59; Status DC Sodium Chloride 100 meq/Potassium Chloride 30 meq/ Potassium Acetate 30 meq/Magnesium Sulfate 12 meq/ Multivitamins 10 ml/Chromium/ Copper/Manganese/ Seleni/Zn 1 ml/ Insulin Human Regular 15 unit/ Total Parenteral Nutrition/Amino Acids/Dextrose/ Fat Emulsion Intravenous 1,800 ml @ 75 mls/hr TPN CONT IV Last administered on 10/22/19at 22:04; Start 10/22/19 at 22:00; Stop 10/23/19 at 21:59; Status DC Fentanyl Citrate 55 ml @ 0 mls/hr CONT PRN IV SEE COMMENTS Last administered on 10/24/19at 23:55; Start 10/22/19 at 13:00; Stop 10/27/19 at 17:28; Status DC Sodium Chloride 100 meq/Potassium Chloride 30 meq/ Potassium Acetate 30 meq/Magnesium Sulfate 12 meq/ Multivitamins 10 ml/Chromium/ Copper/Manganese/ Seleni/Zn 1 ml/ Insulin Human Regular 15 unit/ Total Parenteral Nutrition/Amino Acids/Dextrose/ Fat Emulsion Intravenous 1,680 ml @ 70 mls/hr TPN CONT IV Last administered on 10/23/19at 21:23; Start 10/23/19 at 22:00; Stop 10/24/19 at 21:59; Status DC Sodium Chloride 110 meq/Potassium Chloride 30 meq/ Potassium Acetate 30 meq/Magnesium Sulfate 15 meq/ Multivitamins 10 ml/Chromium/ Copper/Manganese/ Seleni/Zn 1 ml/ Insulin Human Regular 15 unit/ Total Parenteral Nutrition/Amino Acids/Dextrose/ Fat Emulsion Intravenous 1,680 ml @ 70 mls/hr TPN CONT IV Last administered on 10/24/19at 21:48; Start 10/24/19 at 22:00; Stop 10/25/19 at 21:59; Status DC Sodium Chloride 110 meq/Potassium Chloride 30 meq/ Potassium Acetate 30 meq/Magnesium Sulfate 15 meq/ Multivitamins 10 ml/Chromium/ Copper/Manganese/ Seleni/Zn 1 ml/ Insulin Human Regular 15 unit/ Total Parenteral Nutrition/Amino Acids/Dextrose/ Fat Emulsion Intravenous 1,680 ml @ 70 mls/hr TPN CONT IV Last administered on 10/25/19at 21:33; Start 10/25/19 at 22:00; Stop 10/26/19 at 21:59; Status DC Sodium Chloride 110 meq/Potassium Chloride 30 meq/ Potassium Acetate 30 meq/Magnesium Sulfate 15 meq/ Multivitamins 10 ml/Chromium/ Copper/Manganese/ Seleni/Zn 1 ml/ Insulin Human Regular 15 unit/ Total Parenteral Nutrition/Amino Acids/Dextrose/ Fat Emulsion Intravenous 1,680 ml @ 70 mls/hr TPN CONT IV Last administered on 10/26/19at 21:51; Start 10/26/19 at 22:00; Stop 10/27/19 at 21:59; Status DC Sodium Chloride 90 meq/Potassium Chloride 30 meq/ Potassium Acetate 30 meq/Magnesium Sulfate 15 meq/ Multivitamins 10 ml/Chromium/ Copper/Manganese/ Seleni/Zn 1 ml/ Insulin Human Regular 15 unit/ Total Parenteral Nutrition/Amino Acids/Dextrose/ Fat Emulsion Intravenous 1,680 ml @ 70 mls/hr TPN CONT IV Last administered on 10/27/19at 22:38; Start 10/27/19 at 22:00; Stop 10/28/19 at 21:59; Status DC Fentanyl Citrate 30 ml @ 0 mls/hr CONT PRN IV SEE I/O RECORD; Start 10/27/19 at 17:30 Fentanyl (Duragesic 12mcg/ Hr Patch) 1 patch Q3DAYS TD Last administered on 11/03/19at 08:27; Start 10/28/19 at 09:00 Sodium Chloride 90 meq/Potassium Chloride 30 meq/ Potassium Acetate 30 meq/Magnesium Sulfate 15 meq/ Multivitamins 10 ml/Chromium/ Copper/Manganese/ Seleni/Zn 1 ml/ Insulin Human Regular 15 unit/ Total Parenteral Nutrition/Amino Acids/Dextrose/ Fat Emulsion Intravenous 1,680 ml @ 70 mls/hr TPN CONT IV Last administered on 10/28/19at 21:59; Start 10/28/19 at 22:00; Stop 10/29/19 at 21:59; Status DC Sodium Chloride 90 meq/Potassium Chloride 30 meq/ Potassium Acetate 30 meq/Magnesium Sulfate 15 meq/ Multivitamins 10 ml/Chromium/ Copper/Manganese/ Seleni/Zn 1 ml/ Insulin Human Regular 15 unit/ Total Parenteral Nutrition/Amino Acids/Dextrose/ Fat Emulsion Intravenous 1,680 ml @ 70 mls/hr TPN CONT IV Last administered on 10/29/19at 21:35; Start 10/29/19 at 22:00; Stop 10/30/19 at 21:59; Status DC Vancomycin HCl (Vanco Per Pharmacy) 1 each PRN DAILY PRN MC SEE COMMENTS Last administered on 11/01/19at 02:46; Start 10/30/19 at 09:15; Stop 11/02/19 at 07:41; Status DC Ciprofloxacin/ Dextrose 200 ml @ 200 mls/hr Q12HR IV Last administered on 11/05/19at 09:37; Start 10/30/19 at 10:00 Vancomycin HCl 2 gm/Sodium Chloride 500 ml @ 250 mls/hr 1X ONCE IV Last administered on 10/30/19at 10:34; Start 10/30/19 at 10:00; Stop 10/30/19 at 11:59; Status DC Sodium Chloride 90 meq/Potassium Chloride 30 meq/ Potassium Acetate 30 meq/M agnesium Sulfate 15 meq/ Multivitamins 10 ml/Chromium/ Copper/Manganese/ Seleni/Zn 1 ml/ Insulin Human Regular 15 unit/ Total Parenteral Nutrition/Amino Acids/Dextrose/ Fat Emulsion Intravenous 1,680 ml @ 70 mls/hr TPN CONT IV Last administered on 10/30/19at 22:02; Start 10/30/19 at 22:00; Stop 10/31/19 at 21:59; Status DC Diphenhydramine HCl (Benadryl) 25 mg 1X ONCE IVP Last administered on 10/30/19at 14:26; Start 10/30/19 at 14:30; Stop 10/30/19 at 14:31; Status DC Vancomycin HCl 1.5 gm/Sodium Chloride 500 ml @ 250 mls/hr Q8H IV Last administered on 10/31/19at 03:08; Start 10/30/19 at 18:30; Stop 10/31/19 at 12:24; Status DC Vancomycin HCl (Vancomycin Trough Level) 1 each 1X ONCE MC Last administered on 10/31/19at 10:00; Start 10/31/19 at 10:00; Stop 10/31/19 at 10:01; Status DC Sodium Chloride 90 meq/Potassium Chloride 30 meq/ Potassium Acetate 30 meq/Magnesium Sulfate 15 meq/ Multivitamins 10 ml/Chromium/ Copper/Manganese/ Seleni/Zn 1 ml/ Insulin Human Regular 15 unit/ Total Parenteral Nutrition/Amino Acids/Dextrose/ Fat Emulsion Intravenous 1,680 ml @ 70 mls/hr TPN CONT IV Last administered on 10/31/19at 22:13; Start 10/31/19 at 22:00; Stop 11/01/19 at 21:59; Status DC Vancomycin HCl (Vancomycin Random Level) 1 each 1X ONCE MC Last administered on 11/01/19at 01:00; Start 11/01/19 at 01:00; Stop 11/01/19 at 01:01; Status DC Vancomycin HCl 1.5 gm/Sodium Chloride 500 ml @ 250 mls/hr Q12H IV Last administered on 11/01/19at 22:07; Start 11/01/19 at 10:00; Stop 11/02/19 at 07:41; Status DC Vancomycin HCl (Vancomycin Trough Level) 1 each 1X ONCE MC ; Start 11/02/19 at 09:30; Stop 11/02/19 at 09:31; Status Cancel Sodium Chloride 90 meq/Potassium Chloride 30 meq/ Potassium Acetate 30 meq/Magnesium Sulfate 15 meq/ Multivitamins 10 ml/Chromium/ Copper/Manganese/ Seleni/Zn 1 ml/ Insulin Human Regular 15 unit/ Total Parenteral Nutrition/Amino Acids/Dextrose/ Fat Emulsion Intravenous 1,680 ml @ 70 mls/hr TPN CONT IV Last administered on 11/01/19at 22:08; Start 11/01/19 at 22:00; Stop 11/02/19 at 21:59; Status DC Alteplase, Recombinant (Cathflo For Central Catheter Clearance) 1 mg 1X ONCE INT CAT Last administered on 11/01/19at 11:49; Start 11/01/19 at 11:00; Stop 11/01/19 at 11:01; Status DC Daptomycin 500 mg/ Sodium Chloride 50 ml @ 100 mls/hr Q24H IV Last administered on 11/05/19at 09:33; Start 11/02/19 at 09:00 Sodium Chloride 90 meq/Potassium Chloride 30 meq/ Potassium Acetate 30 meq/Magnesium Sulfate 15 meq/ Multivitamins 10 ml/Chromium/ Copper/Manganese/ Seleni/Zn 1 ml/ Insulin Human Regular 15 unit/ Total Parenteral Nutrition/Amino Acids/Dextrose/ Fat Emulsion Intravenous 1,680 ml @ 70 mls/hr TPN CONT IV Last administered on 11/02/19at 22:55; Start 11/02/19 at 22:00; Stop 11/03/19 at 21:59; Status DC Sodium Chloride 90 meq/Potassium Chloride 30 meq/ Potassium Acetate 30 meq/Magnesium Sulfate 15 meq/ Multivitamins 10 ml/Chromium/ Copper/Manganese/ Seleni/Zn 1 ml/ Insulin Human Regular 15 unit/ Total Parenteral Nutrition/Amino Acids/Dextrose/ Fat Emulsion Intravenous 1,680 ml @ 70 mls/hr TPN CONT IV Last administered on 11/03/19at 22:06; Start 11/03/19 at 22:00; Stop 11/04/19 at 21:59; Status DC Diphenhydramine HCl (Benadryl) 50 mg STK-MED ONCE .ROUTE ; Start 11/03/19 at 18:34; Stop 11/03/19 at 18:35; Status DC Diphenhydramine HCl (Benadryl) 25 mg 1X ONCE IM ; Start 11/03/19 at 18:45; Stop 11/03/19 at 18:46; Status DC Diphenhydramine HCl (Benadryl) 25 mg 1X ONCE IVP Last administered on 11/03/19at 18:56; Start 11/03/19 at 19:00; Stop 11/03/19 at 19:01; Status DC Alprazolam (Xanax) 0.5 mg PRN TID PRN PO ANXIETY / AGITATION Last administered on 11/05/19at 09:34; Start 11/04/19 at 08:00 Sodium Chloride 110 meq/Potassium Chloride 30 meq/ Potassium Acetate 30 meq/Magnesium Sulfate 15 meq/ Multivitamins 10 ml/Chromium/ Copper/Manganese/ Seleni/Zn 1 ml/ Insulin Human Regular 15 unit/ Total Parenteral Nutrition/Amino Acids/Dextrose/ Fat Emulsion Intravenous 1,680 ml @ 70 mls/hr TPN CONT IV Last administered on 11/04/19at 21:21; Start 11/04/19 at 22:00; Stop 11/05/19 at 21:59 Active Scripts Active Reported Bisoprolol Fumarate 5 Mg Tablet 10 Mg PO DAILY Vitals/I & O Vital Sign - Last 24 Hours 11/04/19 11/04/19 11/04/19 11/04/19 11:00 11:59 12:00 12:00 Pulse 120 140 Resp 30 30 B/P (MAP) 161/105 (123) 168/114 (132) Pulse Ox 99 98 99 O2 Delivery Tracheal Collar Tracheal Collar Trach Collar Tracheal Collar O2 Flow Rate 8.0 8.0 11/04/19 11/04/19 11/04/19 11/04/19 12:13 12:43 13:00 14:00 Temp 99.1 99.1 Pulse 140 120 Resp 30 30 B/P (MAP) 170/107 (128) 170/104 (126) Pulse Ox 98 98 99 99 O2 Delivery Tracheal Collar Tracheal Collar O2 Flow Rate 8.0 8.0 11/04/19 11/04/19 11/04/19 11/04/19 15:00 16:00 16:00 16:18 Temp 98.8 98.8 Resp 30 30 B/P (MAP) 172/104 (126) Pulse Ox 99 99 98 O2 Delivery Tracheal Collar Trach Collar Tracheal Collar Tracheal Collar O2 Flow Rate 8.0 8.0 11/04/19 11/04/19 11/04/19 11/04/19 17:00 18:00 18:08 18:38 Pulse 130 Resp 30 30 B/P (MAP) 212/123 (152) Pulse Ox 99 99 99 100 O2 Delivery Tracheal Collar Tracheal Collar O2 Flow Rate 8.0 8.0 11/04/19 11/04/19 11/04/19 11/04/19 19:00 20:00 20:00 20:13 Temp 98.7 98.7 Pulse 128 127 Resp 30 31 B/P (MAP) 187/123 (144) 160/85 (110) Pulse Ox 98 100 100 O2 Delivery Tracheal Collar Tracheal Collar Trach Collar Tracheal Collar O2 Flow Rate 8.0 8.0 11/04/19 11/04/19 11/04/19 11/05/19 21:00 22:00 23:00 00:00 Temp 98.6 98.6 Pulse 126 123 120 116 Resp 31 30 30 30 B/P (MAP) 165/109 (127) 152/92 (112) 151/99 (116) 151/99 (116) Pulse Ox 100 98 95 99 O2 Delivery Tracheal Collar Tracheal Collar Tracheal Collar Tracheal Collar 11/05/19 11/05/19 11/05/19 11/05/19 00:10 00:10 01:00 02:00 Pulse 119 117 Resp 30 28 B/P (MAP) 158/92 (114) 155/92 (113) Pulse Ox 98 99 99 O2 Delivery Tracheal Collar Trach Collar Tracheal Collar Tracheal Collar O2 Flow Rate 8.0 8.0 11/05/19 11/05/19 11/05/19 11/05/19 03:00 04:00 04:11 04:12 Pulse 114 110 Resp 24 24 B/P (MAP) 153/88 (109) 154/97 (116) Pulse Ox 99 100 98 O2 Delivery Tracheal Collar Tracheal Collar Trach Collar Tracheal Collar O2 Flow Rate 8.0 8.0 11/05/19 11/05/19 11/05/19 05:00 06:00 08:53 Temp 98.5 98.5 Pulse 108 113 Resp 24 24 B/P (MAP) 135/82 (99) 135/93 (107) Pulse Ox 99 97 98 O2 Delivery Tracheal Collar Tracheal Collar Tracheal Collar O2 Flow Rate 8.0 Intake and Output 11/04/19 11/04/1911/04/20 15:00 23:00 07:00 Intake Total 1126 ml 729 ml Output Total 700 ml 2380 ml 1625 ml Balance -700 ml -1254 ml -896 ml Justicifation of Admission Dx: Justifications for Admission: Justification of Admission Dx: Yes JOVANY HARRISON MD Nov 05, 2019 10:22
[2019-11-05] MEDS: TPN PER PHARMACY MC PRN (10:45)
--- NOTE | 2019-11-05 10:49 | NUR ---
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, 8 inches Weight: 88.4 kg Current diet: NPO LABS: Sodium: 134 Potassium: 4.2 Chloride: 101 Calcium: 9.5 Corrected Calcium: 11.82 Magnesium: 2.1 CO2: 30 SCr: 0.6 Glucose: 138 Albumin: 1.1 AST: 25 ALT: 37 TPN FORMULA: TPN TYPE: Central Continuous AMINO ACIDS: 85 gm DEXTROSE: 250 gm LIPIDS: 20 gm SODIUM CHLORIDE: 110 mEq SODIUM ACETATE: - mEq SODIUM PHOSPHATE: - mmol POTASSIUM CHLORIDE: 30 mEq POTASSIUM ACETATE: 30 mEq POTASSIUM PHOSPHATE: - mmol MAGNESIUM: 15 mEq CALCIUM: - mEq INSULIN: 15 units MULTIPLE VITAMIN: 10 ml TRACE ELEMENTS: 1 ml ml(s) TPN PLAN: continue same R: Continue TPN as ordered Will monitor electrolytes, glucose, and tolerance to TPN. HITESH GARZA [facility], 11/05/19 [id number]
[2019-11-05] MEDS: fentaNYL PF VIAL 100 MCG/2 ML VIAL IV PRN ×2 (13:59→21:08)
[2019-11-05] MEDS: IV NORMAL SALINE 1000ML BAG 1,000 ML IV SCH (14:33)
[2019-11-05] MEDS: METOPROLOL TARTRATE 5 MG/5 ML VIAL. IVP PRN (17:50)
[2019-11-05] MEDS: ACETAMINOPHEN 650 MG SUPP.RECT. PR PRN (21:21)
[2019-11-05] MEDS ORDERED: [UNRECOGNIZED DRUG - OTHER] IV SCH ×10 (22:00)
[2019-11-05] MEDS ORDERED: TOTAL PARENTERAL NUTRITION IV SCH ×10 (22:00)
[2019-11-05] MEDS ORDERED: DEXTROSE 70% IV SCH ×10 (22:00)
[2019-11-05] MEDS ORDERED: AMINO ACID IV SCH ×10 (22:00)
[2019-11-06] VITALS (24 sets, daily range): BP systolic 116–146; BP diastolic 69–98
[2019-11-06] MEDS: IPRATRPIUM/ALBUTEROL 0.5/2.5MG 3 ML NEBU. NEB SCH ×6 (00:15→20:01)
[2019-11-06] MEDS: ALPRAZolam 0.5 MG TABLET PO PRN ×2 (02:58→19:27)
[2019-11-06] MEDS: INSULIN LISPRO 300 UNITS/3 ML VIAL. SQ SCH ×4 (05:59→18:00)
[2019-11-06] MEDS: MEROPENEM 500 MG in IV NORMAL SALINE 50ML 50 ML IV SCH ×3 (06:00→18:23)
[2019-11-06 06:27] LABS: CALCIUM 9.6 mg/dL (8.5-10.1); CREATININE 0.5 mg/dL (0.6-1.0); GFR 131.1; MAGNESIUM 2.1 mg/dL (1.8-2.4); PHOSPHORUS 2.6 mg/dL (2.6-4.7); POTASSIUM 4.2 mmol/L (3.5-5.1)
--- NOTE | 2019-11-06 07:01 | PDOC ---
PULMONARY PROGRESS NOTES Subjective on trach shield 35%, has cough, large trach secretion, is tired, appears comfortable, t max 100.9 Vitals Vital Signs Date Time Temp Pulse Resp B/P (MAP) Pulse Ox O2 Delivery O2 Flow Rate FiO2 11/06/19 06:00 113 24 119/86 (97) 100 Tracheal Collar 11/06/19 04:10 8.0 11/06/19 04:00 97.6 97.6 ROS: No Nausea, No Chest Pain, No Increase Cough General: Alert HEENT: Other (trach site ok) Lungs: Crackles, Other (l ct) Cardiovascular: S1, S2 Abdomen: Soft, Non-tender, Other (multiple KAYLIN drains ) Neuro Exam: Alert Extremities: Other (+1 BLE edema) Skin: Warm Labs Laboratory Tests Test 11/04/19 12:14 11/04/19 17:57 11/05/19 05:45 11/05/19 17:47 Glucose (Fingerstick) 138 mg/dL (70-99) 130 mg/dL (70-99) 96 mg/dL (70-99) White Blood Count 12.2 x10^3/uL (4.0-11.0) Red Blood Count 2.77 x10^6/uL (3.50-5.40) Hemoglobin 7.8 g/dL (12.0-15.5) Hematocrit 23.9 % (36.0-47.0) Mean Corpuscular Volume 86 fL (79-100) Mean Corpuscular Hemoglobin 28 pg (25-35) Mean Corpuscular Hemoglobin Concent 33 g/dL (31-37) Red Cell Distribution Width 15.2 % (11.5-14.5) Platelet Count 666 x10^3/uL (140-400) Neutrophils (%) (Auto) 70 % (31-73) Lymphocytes (%) (Auto) 12 % (24-48) Monocytes (%) (Auto) 13 % (0-9) Eosinophils (%) (Auto) 4 % (0-3) Basophils (%) (Auto) 1 % (0-3) Neutrophils # (Auto) 8.6 x10^3/uL (1.8-7.7) Lymphocytes # (Auto) 1.5 x10^3/uL (1.0-4.8) Monocytes # (Auto) 1.6 x10^3/uL (0.0-1.1) Eosinophils # (Auto) 0.5 x10^3/uL (0.0-0.7) Basophils # (Auto) 0.1 x10^3/uL (0.0-0.2) Sodium Level 134 mmol/L (136-145) Potassium Level 4.2 mmol/L (3.5-5.1) Chloride Level 101 mmol/L (98-107) Carbon Dioxide Level 30 mmol/L (21-32) Anion Gap 3 (6-14) Blood Urea Nitrogen 11 mg/dL (7-20) Creatinine 0.6 mg/dL (0.6-1.0) Estimated GFR (Cockcroft-Gault) 106.3 Glucose Level 138 mg/dL (70-99) Calcium Level 9.5 mg/dL (8.5-10.1) Test 11/06/19 00:10 11/06/19 05:53 11/06/19 06:00 Glucose (Fingerstick) 137 mg/dL (70-99) 120 mg/dL (70-99) Sodium Level 136 mmol/L (136-145) Potassium Level 4.2 mmol/L (3.5-5.1) Chloride Level 102 mmol/L (98-107) Carbon Dioxide Level 30 mmol/L (21-32) Anion Gap 4 (6-14) Blood Urea Nitrogen 10 mg/dL (7-20) Creatinine 0.5 mg/dL (0.6-1.0) Estimated GFR (Cockcroft-Gault) 131.1 Glucose Level 129 mg/dL (70-99) Calcium Level 9.6 mg/dL (8.5-10.1) Phosphorus Level 2.6 mg/dL (2.6-4.7) Magnesium Level 2.1 mg/dL (1.8-2.4) Laboratory Tests Test 11/05/19 17:47 11/06/19 00:10 11/06/19 05:53 11/06/19 06:00 Glucose (Fingerstick) 96 mg/dL (70-99) 137 mg/dL (70-99) 120 mg/dL (70-99) Sodium Level 136 mmol/L (136-145) Potassium Level 4.2 mmol/L (3.5-5.1) Chloride Level 102 mmol/L (98-107) Carbon Dioxide Level 30 mmol/L (21-32) Anion Gap 4 (6-14) Blood Urea Nitrogen 10 mg/dL (7-20) Creatinine 0.5 mg/dL (0.6-1.0) Estimated GFR (Cockcroft-Gault) 131.1 Glucose Level 129 mg/dL (70-99) Calcium Level 9.6 mg/dL (8.5-10.1) Phosphorus Level 2.6 mg/dL (2.6-4.7) Magnesium Level 2.1 mg/dL (1.8-2.4) Medications Active Scripts Medications Dose Route/Sig Max Daily Dose Days Date Category Bisoprolol Fumarate 5 Mg Tablet 10 Mg PO DAILY 07/04/19 Reported Comments cxr 10/30, reviewed, b ll infilt effusion atelectasis ct reviewed 10/30/19, Decreased left-sided effusion after catheter placement. The right-sided effusion has increased as has atelectasis. There has been exchange or placement of multiple drainage tubes and a gastrojejunostomy tube. Both collections are smaller. No significant new abdominal fluid collection is seen. The jejunal component of the gastrojejunostomy tube appears to be looped in the proximal small bowel. ct abdomen /pelvis 09/23 1. Removal of the percutaneous pigtail drainage catheters since the prior exam. Sequela of pancreatitis with extensive pseudocysts again demonstrated, the right-sided collections are slightly larger since the prior exam, the left-sided collections are stable. See above. 2. Moderate to large left pleural effusion with atelectasis and collapse of most of the left lower lobe, stable. Small right pleural effusion is stable. 3. Gallstone. ct chest 10/02 reviewed GRAM NEG COCCOBACILLI:MANY SQUAMOUS EPI CELL:RARE PMN (WBCs):FEW Unless otherwise specified, Testing Performed by: [facility] [address] [place] [address] For Inquires, the Physician may contact the Microbiology department at [phone] RESPIRATORY CULTURE Final Final MANY GRAM NEGATIVE RODS on 10/03/19 at 1100 FINAL ID= [PSEUDOMONAS [email or web address]] MICRO CHARGES PSEUDOMONAS AERUGINOSA ANTIMICROBIAL SUSCEPTIBILITY Final Comment NEG ALEXANDRA 56 PSEUDOMONAS AERUGINOSA ANTIBIOTIC RESULT INTERPRETATION AMIKACIN <=16 S AZTREONAM <=4 S CEFTAZIDIME <=1 S CIPROFLOXACIN <=0.25 S CEFEPIME <=2 S CEFTAZIDIME/AVIBACTAM <=4 S GENTAMICIN <=2 S LEVOFLOXACIN <=0.5 S Impression . IMPRESSION: 1. Acute hypoxemic respiratory failure secondary to ARDS status post trach, developed anemia 09/24, blood drainage from RLQ abdomen drain site, and s urrounding firmness / developed septic shock 09/24 from abdomen source, required levo /7 s/p 3 new drains 09/24 with brown color drainage, 2. Gallstone pancreatitis, now with ongoing bleeding from prior drain. Anemic. s/p Tx multiple units over several days 3. septic shock/sepsis, recurrent 09/24, source abdomen. new fever ? aspiration pneumonitis/pneumonia 4. Acute kidney injury-, Off HD--renal function decling. suspect JUANA on CKD due to hypotension , improved now 5. Acute gallstone pancreatitis. 6. Hypoalbuminemia. 7. Moderate persistent effusions, s/p left thora 08/29, reaccumulation of left effusion. O2 requirement not changed. 8. Fever- ,hypotension. suspect recurrent sepsis/ likely pancreatic source. Per ID, per surgery-- 9. Chronic anemia-- ongoing / s/p PRBC 10. Covid 19 testing negative 11. Moderate to large ascites-S/P paracentisis 12.S/P paracentisis with 4 liters removed on 08/03/19 13. S/P IR drain placement on 08/26/2019, removal, re inserted 09/24 14. Depression/Anxiety 15., Fever, per ID 16. Status post chest tube placement, not much drainage 10/17 S/P Exploratory laparotomy, lysis of adhesions, subtotal cholecystectomy with cholangiogram, gastrojejunostomy tube placement, pancreatic necrosectomy leukocytosis- improving Plan . sputum cx, flush Chest tube increase suction to -40 cxr in am Continue current support, monitor H&H, Trach shield Up to chair, pt/ot Follow culture Follow surgery input DVT GI prophylaxis ABX per ID f/u BC /resp cultures Continue TPN for nutrition support DVT/GI PPX D/W RN and RT, TEN WHITFIELD MD Nov 06, 2019 07:01
--- NOTE | 2019-11-06 07:50 | PDOC ---
Infectious Disease Note Subjective Subjective Fever Tmax 100.9 FiO2 35% via trach shield TPN ROS ROS as mentioned above Vital Sign Vital Signs Vital Signs Date Time Temp Pulse Resp B/P (MAP) Pulse Ox O2 Delivery O2 Flow Rate FiO2 11/06/19 07:00 116 29 140/94 (109) 100 Tracheal Collar 10.0 11/06/19 04:00 97.6 97.6 Physical Exam PHYSICAL EXAM GENERAL: Propped up in bed, resting quietly HEENT: Pupils equal, oral cavity dry. NGT out, NECK: Tracheostomy LUNGS: Diminished aeration bases, CT on left HEART: S1, S2, regular, tachy 110s ABDOMEN: Distended, bowel sounds hypoactive, soft, goyal x 2, 3 KAYLIN drains, G-J tube and + wound vac : Lind in place EXTREMITIES: Trace generalized edema, no cyanosis. RADHA hose bilaterally, SKIN: warm touch. No signs of rash. NEURO: Did not awaken LUE-PICC without signs of complications Labs Lab Laboratory Tests Test 11/05/19 17:47 11/06/19 00:10 11/06/19 05:53 11/06/19 06:00 Glucose (Fingerstick) 96 mg/dL (70-99) 137 mg/dL (70-99) 120 mg/dL (70-99) Sodium Level 136 mmol/L (136-145) Potassium Level 4.2 mmol/L (3.5-5.1) Chloride Level 102 mmol/L (98-107) Carbon Dioxide Level 30 mmol/L (21-32) Anion Gap 4 (6-14) Blood Urea Nitrogen 10 mg/dL (7-20) Creatinine 0.5 mg/dL (0.6-1.0) Estimated GFR (Cockcroft-Gault) 131.1 Glucose Level 129 mg/dL (70-99) Calcium Level 9.6 mg/dL (8.5-10.1) Phosphorus Level 2.6 mg/dL (2.6-4.7) Magnesium Level 2.1 mg/dL (1.8-2.4) Micro Objective Assessment Patient with prolonged hospitalization more than 3 months Multiple medical problems Multiple surgical procedures S/P Exp. 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 parapsilosis & PSAE (I-merrem/ceftazidime/AZT/cefepime) Leucocytosis -trending upward Fever Acute gallstone pancreatitis with persistent necrosis - 07/27. CT A/P Increased ascites. 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 status post KAYLIN drain placement; C. parapsilosis. s/p drain 08/23 + yeast & high amylase; s/p additional drain on 08/25. Drains removed. -08/23. fluid devyn parapsilosis fluid, amylase high - 09/23 showed multiple pseudocysts, slight larger on the right. s/p drains x 3, 09/24. + PSAE (MDRO-R Cefepime, Zosyn ALEXANDRA < 64) and yeast, -09/24 s/p drain replacement x 3; fluid cult PSAE (MDRO), yeast; treated -10/29 CT A/P shows smaller fluid collections. Ascites s/p paracentesis 08/02 & 08/23. C. parapsilosis Cholelithiasis with thickening of the gallbladder wall. JUANA, Hyperkalemia, Metabolic acidosis off dialysis Acute hypoxic resp failure. trach/vent. sputum 09/30 + PSAE (I merrem). Repeat sputum on 10/29 + CRE PSA Pleural effusions s/p left thoracentesis, 08/29. no culture. 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 The chart was reviewed. The case was discussed. Agree with the plan of care. FRANCA HOBSON APRN Nov 06, 2019 07:50 KIMMY JONES MD Nov 06, 2019 10:19
[2019-11-06] MEDS ORDERED: ALTEPLASE 1MG SYRINGE. INT CAT ONE (08:15)
[2019-11-06] MEDS: PANTOPRAZOLE IV PUSH 40 MG VIAL. IVP SCH (08:22)
[2019-11-06] MEDS: ENOXAPARIN 40 MG/0.4 ML SYRINGE. SQ SCH (08:23)
[2019-11-06] MEDS: MICAFUNGIN 100 MG in IV DEXTROSE 5% 100ML 100 ML IV SCH (08:24)
[2019-11-06] MEDS: CIPROFLOXACIN 400MG PREMIX 200 ML IV SCH ×2 (08:24→21:22)
[2019-11-06] MEDS: ACETYLCYSTEINE 20% for RESP TX 600 MG/3 ML. NEB SCH ×2 (08:41→20:01)
[2019-11-06] MEDS: TPN PER PHARMACY MC PRN ×2 (08:42→08:49)
--- NOTE | 2019-11-06 08:49 | NUR ---
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, 8 inches Weight: 90.2 kg Current diet: NPO LABS: Sodium: 136 Potassium: 4.2 Chloride: 102 Calcium: 9.6 Corrected Calcium: 11.92 Magnesium: 2.1 CO2: 30 SCr: 0.5 Glucose: 120-129 Albumin: 1.1 AST: 25 ALT: 37 TPN FORMULA: TPN TYPE: Central Continuous AMINO ACIDS: 85 gm DEXTROSE: 250 gm LIPIDS: 20 gm SODIUM CHLORIDE: 110 mEq SODIUM ACETATE: - mEq SODIUM PHOSPHATE: 10 mmol POTASSIUM CHLORIDE: 30 mEq POTASSIUM ACETATE: 30 mEq POTASSIUM PHOSPHATE: - mmol MAGNESIUM: 15 mEq CALCIUM: - mEq INSULIN: 15 units MULTIPLE VITAMIN: 10 ml TRACE ELEMENTS: 1 ml ml(s) TPN PLAN: Added 10 mmol Naphos for low plasma phos. Other labs stable. BMP in AM. R: Continue TPN as above. Will monitor electrolytes, glucose, and tolerance to TPN. CHRISTIAN VALLEJO [facility], 11/06/19 [id number]
[2019-11-06] MEDS: fentaNYL 12MCG/HR PATCH 1 PATCH PATCH.TD72 TD SCH (09:00)
[2019-11-06] MEDS: DAPTOmycin (GENERIC) IVPB 500 MG in IV NORMAL SALINE 50ML 50 ML IV SCH (09:27)
--- NOTE | 2019-11-06 10:17 | PDOC ---
PROGRESS NOTES Chief Complaint Chief Complaint A/P Acute hypoxic Respiratory failure required mechanical ventilation Tracheostomy bilateral pleural effusions/pulm edema s/p Throacentesis on 10/03/2019 Severe Acute gallstone pancreatitis (not a surgical candidate at this time) with necrosis Acute kidney failure now requiring dialysis Gallstones (Calculus of gallbladder with acute cholecystitis without obstruction) HTN Intractable pain Intractable nausea Covid 19 negative. Acute on chronic anemia EEG: No seizure activity Fever - intermittent ? Ileus with vomiting Abd distention - U/S and CT reviewed s/p 0.4 L of opaque, debris-containing ascites was removed 08/23 Acute pancreatitis with persistent necrosis Gallstone pancreatitis with necrosis. -CT A/P 09/23 showed multiple pseudocysts, slight larger on the right. s/p drains x 3, 09/24. + PSAE (MDRO-R Cefepime, Zosyn ALEXANDRA < 64) and yeast, -s/p drain 08/14. C. parapsilosis. s/p drain 08/23 + yeast & high amylase; s/p additional drain on 08/25. Drains removed. Ascites s/p paracentesis 08/02 & 08/23. C. parapsilosis JUANA. off HD. A large fluid collection in the pancreatic bed has slightly decreased in size, described below, the pancreas itself is difficult to visualize, which could be due to necrosis or obscuration of pancreatic parenchyma from the surrounding fluid collection.10/02 - 08/14 status post KAYLIN drain placement + C paropsilosis. s/p additional drains 08/25 Anemia - S/p PRBCs. Cholelithiasis with thickening of the gallbladder wall. Leucocytosis improving JUANA, hyperkalemia, Metabolic acidosis off dialysis hypocalcemia Prediabetes HTN s/p trach Hyperglycemia severe protein-caloric malnutrition Moderate to large left pleural effusion with atelectasis and collapse of most of the left lower lobe, stable Dispo - ICU, critically ill Chest tube draining TPN per nutrition follow cultures. meropenam, cipro, micafungin per ID Continue trach shield ID, gen sx, GI, pulm following DVT GI prophylaxis Continue TPN for nutrition support poor prognosis follow labs xanax for anxiety prn History of Present Illness History of Present Illness fi 0235% via trach shield. no fevers. Vitals Vitals Vital Signs Date Time Temp Pulse Resp B/P (MAP) Pulse Ox O2 Delivery O2 Flow Rate FiO2 11/06/19 10:00 112 24 120/80 (93) 100 Tracheal Collar 10.0 11/06/19 08:00 98.1 98.1 Physical Exam Physical Exam GENERAL: Propped up in bed, resting quietly HEENT: Pupils equal, oral cavity dry. NGT out, NECK: Tracheostomy LUNGS: Diminished aeration bases, CT on left HEART: S1, S2, regular, tachy 110s ABDOMEN: Distended, bowel sounds hypoactive, soft, goyal x 2, 3 KAYLIN drains, G-J tube and + wound vac : Lind in place EXTREMITIES: Trace generalized edema, no cyanosis. RADHA hose bilaterally, SKIN: warm touch. No signs of rash. NEURO: Did not awaken LUE-PICC without signs of complications General: Alert, Cooperative (place) Heart: Regular rate (SR/ST), Other (distant heart sounds) Lungs: Crackles, Other (l ct) Abdomen: Soft, Other (mulitple drains, lower sump drain migrated out) Extremities: Other (Diffuse edema) Skin: No rashes, No significant lesion Labs LABS Laboratory Tests Test 11/05/19 17:47 11/06/19 00:10 11/06/19 05:53 11/06/19 06:00 Glucose (Fingerstick) 96 mg/dL (70-99) 137 mg/dL (70-99) 120 mg/dL (70-99) Sodium Level 136 mmol/L (136-145) Potassium Level 4.2 mmol/L (3.5-5.1) Chloride Level 102 mmol/L (98-107) Carbon Dioxide Level 30 mmol/L (21-32) Anion Gap 4 (6-14) Blood Urea Nitrogen 10 mg/dL (7-20) Creatinine 0.5 mg/dL (0.6-1.0) Estimated GFR (Cockcroft-Gault) 131.1 Glucose Level 129 mg/dL (70-99) Calcium Level 9.6 mg/dL (8.5-10.1) Phosphorus Level 2.6 mg/dL (2.6-4.7) Magnesium Level 2.1 mg/dL (1.8-2.4) Test 11/06/19 08:50 Creatine Kinase 11 U/L (26-192) Assessment and Plan Assessmemt and Plan Problems Medical Problems: (1) Acute pancreatitis Status: Acute (2) Cholelithiasis Status: Acute Comment Review of Relevant I have reviewed the following items kolby (where applicable) has been applied. Labs Laboratory Tests Test 11/04/19 12:14 11/04/19 17:57 11/05/19 05:45 11/05/19 17:47 Glucose (Fingerstick) 138 mg/dL (70-99) 130 mg/dL (70-99) 96 mg/dL (70-99) White Blood Count 12.2 x10^3/uL (4.0-11.0) Red Blood Count 2.77 x10^6/uL (3.50-5.40) Hemoglobin 7.8 g/dL (12.0-15.5) Hematocrit 23.9 % (36.0-47.0) Mean Corpuscular Volume 86 fL (79-100) Mean Corpuscular Hemoglobin 28 pg (25-35) Mean Corpuscular Hemoglobin Concent 33 g/dL (31-37) Red Cell Distribution Width 15.2 % (11.5-14.5) Platelet Count 666 x10^3/uL (140-400) Neutrophils (%) (Auto) 70 % (31-73) Lymphocytes (%) (Auto) 12 % (24-48) Monocytes (%) (Auto) 13 % (0-9) Eosinophils (%) (Auto) 4 % (0-3) Basophils (%) (Auto) 1 % (0-3) Neutrophils # (Auto) 8.6 x10^3/uL (1.8-7.7) Lymphocytes # (Auto) 1.5 x10^3/uL (1.0-4.8) Monocytes # (Auto) 1.6 x10^3/uL (0.0-1.1) Eosinophils # (Auto) 0.5 x10^3/uL (0.0-0.7) Basophils # (Auto) 0.1 x10^3/uL (0.0-0.2) Sodium Level 134 mmol/L (136-145) Potassium Level 4.2 mmol/L (3.5-5.1) Chloride Level 101 mmol/L (98-107) Carbon Dioxide Level 30 mmol/L (21-32) Anion Gap 3 (6-14) Blood Urea Nitrogen 11 mg/dL (7-20) Creatinine 0.6 mg/dL (0.6-1.0) Estimated GFR (Cockcroft-Gault) 106.3 Glucose Level 138 mg/dL (70-99) Calcium Level 9.5 mg/dL (8.5-10.1) Test 11/06/19 00:10 11/06/19 05:53 11/06/19 06:00 11/06/19 08:50 Glucose (Fingerstick) 137 mg/dL (70-99) 120 mg/dL (70-99) Sodium Level 136 mmol/L (136-145) Potassium Level 4.2 mmol/L (3.5-5.1) Chloride Level 102 mmol/L (98-107) Carbon Dioxide Level 30 mmol/L (21-32) Anion Gap 4 (6-14) Blood Urea Nitrogen 10 mg/dL (7-20) Creatinine 0.5 mg/dL (0.6-1.0) Estimated GFR (Cockcroft-Gault) 131.1 Glucose Level 129 mg/dL (70-99) Calcium Level 9.6 mg/dL (8.5-10.1) Phosphorus Level 2.6 mg/dL (2.6-4.7) Magnesium Level 2.1 mg/dL (1.8-2.4) Creatine Kinase 11 U/L (26-192) Laboratory Tests Test 11/05/19 17:47 11/06/19 00:10 11/06/19 05:53 11/06/19 06:00 Glucose (Fingerstick) 96 mg/dL (70-99) 137 mg/dL (70-99) 120 mg/dL (70-99) Sodium Level 136 mmol/L (136-145) Potassium Level 4.2 mmol/L (3.5-5.1) Chloride Level 102 mmol/L (98-107) Carbon Dioxide Level 30 mmol/L (21-32) Anion Gap 4 (6-14) Blood Urea Nitrogen 10 mg/dL (7-20) Creatinine 0.5 mg/dL (0.6-1.0) Estimated GFR (Cockcroft-Gault) 131.1 Glucose Level 129 mg/dL (70-99) Calcium Level 9.6 mg/dL (8.5-10.1) Phosphorus Level 2.6 mg/dL (2.6-4.7) Magnesium Level 2.1 mg/dL (1.8-2.4) Test 11/06/19 08:50 Creatine Kinase 11 U/L (26-192) Microbiology 11/02/19 Blood Culture - Preliminary, Resulted NO GROWTH AFTER 3 DAYS 10/30/19 Gram Stain Evaluation - Final, Complete 10/30/19 Respiratory Culture - Final, Complete 10/30/19 Antimicrobic Susceptibility - Final, Complete 10/18/19 Gram Stain - Final, Complete 10/18/19 Aerobic and Anaerobic Culture - Final, Complete 10/18/19 Antimicrobic Susceptibility - Final, Complete 10/03/19 Gram Stain - Final, Complete 10/03/19 Aerobic and Anaerobic Culture - Final, Complete 09/25/19 Urine Culture - Final, Complete 09/17/19 Gram Stain - Final, Complete 09/17/19 Aerobic Culture - Final, Complete Medications Current Medications Sodium Chloride 1,000 ml @ 1,000 mls/hr Q1H IV Last administered on 07/04/19at 03:00; Start 07/04/19 at 03:00; Stop 07/04/19 at 03:59; Status DC Ondansetron HCl (Zofran) 4 mg 1X ONCE IVP Last administered on 07/04/19at 03:27; Start 07/04/19 at 03:00; Stop 07/04/19 at 03:01; Status DC Morphine Sulfate (Morphine Sulfate) 4 mg 1X ONCE IV ; Start 07/04/19 at 03:00; Stop 07/04/19 at 03:01; Status Cancel Ketorolac Tromethamine (Toradol 30mg Vial) 30 mg 1X ONCE IV Last administered on 07/04/19at 02:54; Start 07/04/19 at 03:00; Stop 07/04/19 at 03:01; Status DC Fentanyl Citrate (Fentanyl 2ml Vial) 25 mcg 1X ONCE IVP Last administered on 07/04/19at 03:23; Start 07/04/19 at 03:30; Stop 07/04/19 at 03:31; Status DC Fentanyl Citrate (Fentanyl 2ml Vial) 100 mcg STK-MED ONCE .ROUTE ; Start 07/04/19 at 03:18; Stop 07/04/19 at 03:18; Status DC Iohexol (Omnipaque 350 Mg/ml) 90 ml 1X ONCE IV Last administered on 07/04/19at 03:25; Start 07/04/19 at 03:30; Stop 07/04/19 at 03:31; Status DC Info (CONTRAST GIVEN -- Rx MONITORING) 1 each PRN DAILY PRN MC SEE COMMENTS; Start 07/04/19 at 03:30; Stop 07/06/19 at 03:29; Status DC Hydromorphone HCl (Dilaudid) 0.5 mg 1X ONCE IV Last administered on 07/04/19at 03:55; Start 07/04/19 at 04:30; Stop 07/04/19 at 04:32; Status DC Ondansetron HCl (Zofran) 4 mg PRN Q8HRS PRN IV NAUSEA/VOMITING 1ST CHOICE; Start 07/04/19 at 05:00; Stop 07/04/19 at 09:27; Status DC Morphine Sulfate (Morphine Sulfate) 2 mg PRN Q2HR PRN IV SEVERE PAIN 7-10 Last administered on 07/05/19at 12:26; Start 07/04/19 at 05:00; Stop 07/05/19 at 14:15; Status DC Sodium Chloride 1,000 ml @ 125 mls/hr Q8H IV Last administered on 07/04/19at 20:56; Start 07/04/19 at 05:00; Stop 07/05/19 at 04:59; Status DC Hydromorphone HCl (Dilaudid) 0.5 mg PRN Q3HRS PRN IV SEVERE PAIN 7-10 Last administered on 07/05/19at 10:06; Start 07/04/19 at 05:00; Stop 07/05/19 at 12:01; Status DC Piperacillin Sod/ Tazobactam Sod 4.5 gm/Sodium Chloride 100 ml @ 200 mls/hr 1X ONCE IV Last administered on 07/04/19at 05:44; Start 07/04/19 at 06:00; Stop 07/04/19 at 06:29; Status DC Ondansetron HCl (Zofran) 4 mg PRN Q4HRS PRN IV NAUSEA/VOMITING 1ST CHOICE Last administered on 11/03/19at 08:18; Start 07/04/19 at 09:30 Insulin Human Lispro (HumaLOG) 0-9 UNITS Q6HRS SQ Last administered on 11/05/19at 13:13; Start 07/04/19 at 09:30 Dextrose (Dextrose 50%-Water Syringe) 12.5 gm PRN Q15MIN PRN IV SEE COMMENTS; Start 07/04/19 at 09:30 Pantoprazole Sodium (PROTONIX VIAL for IV PUSH) 40 mg DAILYAC IVP Last administered on 11/06/19at 08:22; Start 07/04/19 at 11:30 Prochlorperazine Edisylate (Compazine) 10 mg PRN Q6HRS PRN IV NAUSEA/VOMITING, 2nd CHOICE Last administered on 10/31/19at 20:17; Start 07/04/19 at 17:45 Atenolol (Tenormin) 100 mg DAILY PO ; Start 07/05/19 at 09:00; Stop 07/04/19 at 20:08; Status DC Metoprolol Tartrate (Lopressor Vial) 2.5 mg Q6HRS IVP Last administered on 07/05/19at 05:51; Start 07/04/19 at 20:15; Stop 07/05/19 at 10:02; Status DC Metoprolol Tartrate (Lopressor Vial) 5 mg Q6HRS IVP Last administered on 07/14/19at 00:12; Start 07/05/19 at 10:15; Stop 07/16/19 at 08:48; Status DC Hydromorphone HCl (Dilaudid) 1 mg PRN Q3HRS PRN IV SEVERE PAIN 7-10 Last administered on 07/11/19at 05:13; Start 07/05/19 at 12:00; Stop 07/19/19 at 00:25; Status DC Lidocaine HCl (Buffered Lidocaine 1%) 3 ml STK-MED ONCE .ROUTE ; Start 07/05/19 at 12:55; Stop 07/05/19 at 12:56; Status DC Albumin Human 500 ml @ 125 mls/hr 1X ONCE IV Last administered on 07/05/19at 14:33; Start 07/05/19 at 14:30; Stop 07/05/19 at 18:32; Status DC Norepinephrine Bitartrate 8 mg/ Dextrose 258 ml @ 17.299 mls/ hr CONT PRN IV PER PROTOCOL Last administered on 08/02/19at 12:48; Start 07/05/19 at 15:30; Stop 08/05/19 at 09:19; Status DC Sodium Chloride 1,000 ml @ 125 mls/hr Q8H IV Last administered on 07/05/19at 21:04; Start 07/05/19 at 16:00; Stop 07/06/19 at 02:42; Status DC Albumin Human 500 ml @ 125 mls/hr PRN BID PRN IV After every 2L NSS & BP < 90mm Last administered on 10/18/19at 16:06; Start 07/05/19 at 16:00; Stop 10/21/19 at 09:30; Status DC Iohexol (Omnipaque 300 Mg/ml) 60 ml 1X ONCE IV Last administered on 07/05/19at 17:20; Start 07/05/19 at 17:00; Stop 07/05/19 at 17:01; Status DC Info (CONTRAST GIVEN -- Rx MONITORING) 1 each PRN DAILY PRN MC SEE COMMENTS; Start 07/05/19 at 17:00; Stop 07/07/19 at 16:59; Status DC Meropenem 1 gm/ Sodium Chloride 100 ml @ 200 mls/hr Q8HRS IV Last administered on 07/06/19at 05:45; Start 07/05/19 at 20:00; Stop 07/06/19 at 08:48; Status DC Furosemide (Lasix) 40 mg 1X ONCE IVP Last administered on 07/05/19at 22:12; Start 07/05/19 at 22:30; Stop 07/05/19 at 22:31; Status DC Calcium Chloride 1000 mg/Sodium Chloride 110 ml @ 220 mls/hr 1X ONCE IV Last administered on 07/05/19at 22:11; Start 07/05/19 at 22:30; Stop 07/05/19 at 22:59; Status DC Albuterol Sulfate (Ventolin Neb Soln) 2.5 mg 1X ONCE NEB Last administered on 07/06/19at 00:56; Start 07/05/19 at 22:30; Stop 07/05/19 at 22:31; Status DC Insulin Human Regular (HumuLIN R VIAL) 5 unit 1X ONCE IV Last administered on 07/05/19at 22:14; Start 07/05/19 at 22:30; Stop 07/05/19 at 22:31; Status DC Magnesium Sulfate 50 ml @ 25 mls/hr 1X ONCE IV Last administered on 07/06/19at 02:57; Start 07/06/19 at 03:00; Stop 07/06/19 at 04:59; Status DC Calcium Gluconate 1000 mg/Sodium Chloride 110 ml @ 220 mls/hr 1X ONCE IV Last administered on 07/06/19at 02:46; Start 07/06/19 at 03:00; Stop 07/06/19 at 03:29; Status DC Sodium Chloride 1,000 ml @ 200 mls/hr Q5H IV Last administered on 07/06/19at 02 :46; Start 07/06/19 at 03:00; Stop 07/06/19 at 10:21; Status DC Calcium Gluconate 1000 mg/Sodium Chloride 110 ml @ 220 mls/hr 1X ONCE IV Last administered on 07/06/19at 03:21; Start 07/06/19 at 03:30; Stop 07/06/19 at 03:59; Status DC Sodium Bicarbonate 50 meq/Sodium Chloride 1,050 ml @ 75 mls/hr Q14H IV Last administered on 07/10/19at 21:10; Start 07/06/19 at 07:30; Stop 07/11/19 at 10:28; Status DC Calcium Gluconate 2000 mg/Sodium Chloride 120 ml @ 220 mls/hr 1X ONCE IV Last administered on 07/06/19at 09:05; Start 07/06/19 at 07:30; Stop 07/06/19 at 08:02; Status DC Lidocaine HCl (Xylocaine-Mpf 1% 2ml Vial) 2 ml STK-MED ONCE .ROUTE ; Start 07/06/19 at 08:47; Stop 07/06/19 at 08:47; Status DC Meropenem 500 mg/ Sodium Chloride 50 ml @ 100 mls/hr Q12HR IV Last administered on 07/11/19at 21:01; Start 07/06/19 at 18:00; Stop 07/12/19 at 07:58; Status DC Lidocaine HCl (Buffered Lidocaine 1%) 3 ml STK-MED ONCE .ROUTE ; Start 07/06/19 at 09:46; Stop 07/06/19 at 09:46; Status DC Lidocaine HCl (Buffered Lidocaine 1%) 6 ml 1X ONCE INJ Last administered on 07/06/19at 10:26; Start 07/06/19 at 10:15; Stop 07/06/19 at 10:16; Status DC Info (Tpn Per Pharmacy) 1 each PRN DAILY PRN MC SEE COMMENTS Last administered on 11/06/19at 08:49; Start 07/06/19 at 12:00 Sodium Chloride 1,000 ml @ 1,000 mls/hr Q1H PRN IV hypotension; Start 07/06/19 at 12:07; Stop 07/06/19 at 18:06; Status DC Diphenhydramine HCl (Benadryl) 25 mg 1X PRN PRN IV ITCHING; Start 07/06/19 at 12:15; Stop 07/07/19 at 12:14; Status DC Diphenhydramine HCl (Benadryl) 25 mg 1X PRN PRN IV ITCHING; Start 07/06/19 at 12:15; Stop 07/07/19 at 12:14; Status DC Sodium Chloride 1,000 ml @ 400 mls/hr Q2H30M PRN IV PATENCY; Start 07/06/19 at 12:07; Stop 07/07/19 at 00:06; Status DC Info (PHARMACY MONITORING -- do not chart) 1 each PRN DAILY PRN MC SEE COMMENTS; Start 07/06/19 at 12:15; Stop 07/08/19 at 08:13; Status DC Sodium Chloride 90 meq/Calcium Gluconate 10 meq/ Multivitamins 10 ml/Chromium/ Copper/Manganese/ Seleni/Zn 1 ml/ Total Parenteral Nutrition/Amino Acids/Dextrose/ Fat Emulsion Intravenous 55.005 ml @ 2.292 mls/hr TPN CONT IV ; Start 07/06/19 at 22:00; Stop 07/06/19 at 12:33; Status DC Info (Tpn Per Pharmacy) 1 each PRN DAILY PRN MC SEE COMMENTS; Start 07/06/19 at 12:30; Status UNV Sodium Chloride 90 meq/Calcium Gluconate 10 meq/ Multivitamins 10 ml/Chromium/ Copper/Manganese/ Seleni/Zn 0.5 ml/ Total Parenteral Nutrition/Amino Acids/Dextrose/ Fat Emulsion Intravenous 1,512 ml @ 63 mls/hr TPN CONT IV Last administered on 07/06/19at 22:06; Start 07/06/19 at 22:00; Stop 07/07/19 at 21:59; Status DC Calcium Carbonate/ Glycine (Tums) 500 mg PRN AFTMEALHC PRN PO INDIGESTION; Start 07/06/19 at 17:45; Stop 08/31/19 at 10:25; Status DC Calcium Gluconate (Calcium Gluconate) 2,000 mg 1X ONCE IVP Last administered on 07/07/19at 02:19; Start 07/07/19 at 02:15; Stop 07/07/19 at 02:16; Status DC Calcium Chloride 3000 mg/Sodium Chloride 1,030 ml @ 50 mls/hr [id number] IV Last administered on 07/09/19at 02:17; Start 07/07/19 at 08:00; Stop 07/09/19 at 1 5:23; Status DC Lorazepam (Ativan Inj) 1 mg PRN Q4HRS PRN IVP ANXIETY / AGITATION, 2nd choic Last administered on 08/05/19at 03:51; Start 07/07/19 at 09:00; Stop 08/05/19 at 09:19; Status DC Sodium Chloride 1,000 ml @ 1,000 mls/hr Q1H PRN IV hypotension; Start 07/07/19 at 08:56; Stop 07/07/19 at 14:55; Status DC Albumin Human 200 ml @ 200 mls/hr 1X PRN PRN IV Hypotension; Start 07/07/19 at 09:00; Stop 07/07/19 at 14:59; Status DC Diphenhydramine HCl (Benadryl) 25 mg 1X PRN PRN IV ITCHING; Start 07/07/19 at 09:00; Stop 07/08/19 at 08:59; Status DC Diphenhydramine HCl (Benadryl) 25 mg 1X PRN PRN IV ITCHING; Start 07/07/19 at 09:00; Stop 07/08/19 at 08:59; Status DC Sodium Chloride 1,000 ml @ 400 mls/hr Q2H30M PRN IV PATENCY; Start 07/07/19 at 08:56; Stop 07/07/19 at 20:55; Status DC Info (PHARMACY MONITORING -- do not chart) 1 each PRN DAILY PRN MC SEE COMMENTS; Start 07/07/19 at 09:00; Status UNV Info (PHARMACY MONITORING -- do not chart) 1 each PRN DAILY PRN MC SEE COMMENTS; Start 07/07/19 at 09:00; Stop 07/08/19 at 08:13; Status DC Digoxin (Lanoxin) 500 mcg 1X ONCE IV Last administered on 07/07/19at 10:04; Start 07/07/19 at 10:00; Stop 07/07/19 at 10:01; Status DC Digoxin (Lanoxin) 125 mcg 1X ONCE IV Last administered on 07/07/19at 17:10; Start 07/07/19 at 18:00; Stop 07/07/19 at 18:01; Status DC Magnesium Sulfate 100 ml @ 25 mls/hr 1X ONCE IV Last administered on 07/07/19at 12:48; Start 07/07/19 at 13:00; Stop 07/07/19 at 16:59; Status DC Sodium Chloride 90 meq/Magnesium Sulfate 10 meq/ Calcium Gluconate 20 meq/ Multivitamins 10 ml/Chromium/ Copper/Manganese/ Seleni/Zn 0.5 ml/ Total Parenteral Nutrition/Amino Acids/Dextrose/ Fat Emulsion Intravenous 1,512 ml @ 63 mls/hr TPN CONT IV Last administered on 07/07/19at 22:25; Start 07/07/19 at 22:00; Stop 07/08/19 at 21:59; Status DC Sodium Chloride 1,000 ml @ 1,000 mls/hr Q1H PRN IV hypotension; Start 07/08/19 at 08:05; Stop 07/08/19 at 14:04; Status DC Albumin Human 200 ml @ 200 mls/hr 1X ONCE IV Last administered on 07/08/19at 08:57; Start 07/08/19 at 08:15; Stop 07/08/19 at 09:14; Status DC Diphenhydramine HCl (Benadryl) 25 mg 1X PRN PRN IV ITCHING; Start 07/08/19 at 08:15; Stop 07/09/19 at 08:14; Status DC Diphenhydramine HCl (Benadryl) 25 mg 1X PRN PRN IV ITCHING; Start 07/08/19 at 08:15; Stop 07/09/19 at 08:14; Status DC Sodium Chloride 1,000 ml @ 400 mls/hr Q2H30M PRN IV PATENCY; Start 07/08/19 at 08:05; Stop 07/08/19 at 20:04; Status DC Info (PHARMACY MONITORING -- do not chart) 1 each PRN DAILY PRN MC SEE COMMENTS; Start 07/08/19 at 08:15; Stop 07/12/19 at 07:57; Status DC Sodium Chloride 90 meq/Potassium Chloride 15 meq/ Potassium Phosphate 10 mmol/ Magnesium Sulfate 10 meq/Calcium Gluconate 20 meq/ Multivitamins 10 ml/Chromium/ Copper/Manganese/ Seleni/Zn 0.5 ml/ Total Parenteral Nutrition/Amino Acids/Dextrose/ Fat Emulsion Intravenous 1,512 ml @ 63 mls/hr TPN CONT IV Last administered on 07/08/19at 21:01; Start 07/08/19 at 22:00; Stop 07/09/19 at 21:59; Status DC Potassium Chloride/Water 100 ml @ 100 mls/hr 1X ONCE IV Last administered on 07/08/19at 14:09; Start 07/08/19 at 14:00; Stop 07/08/19 at 14:59; Status DC Benzocaine (Hurricaine One) 1 spray 1X ONCE MM Last administered on 07/08/19at 16:38; Start 07/08/19 at 14:30; Stop 07/08/19 at 14:31; Status DC Lidocaine HCl (Glydo (Lidocaine) Jelly) 1 ramu 1X ONCE MM Last administered on 07/08/19at 16:38; Start 07/08/19 at 14:30; Stop 07/08/19 at 14:31; Status DC Linezolid/Dextrose 300 ml @ 300 mls/hr Q12HR IV Last administered on 07/14/19at 21:04; Start 07/08/19 at 20:00; Stop 07/15/19 at 07:50; Status DC Acetaminophen (Tylenol) 650 mg PRN Q6HRS PRN PO MILD PAIN / TEMP; Start 07/09/19 at 03:30; Stop 07/09/19 at 03:36; Status DC Acetaminophen (Tylenol) 650 mg PRN Q6HRS PRN PEG MILD PAIN / TEMP Last administered on 08/04/19at 19:56; Start 07/09/19 at 03:36; Stop 08/31/19 at 10:25; Status DC Sodium Chloride 1,000 ml @ 1,000 mls/hr Q1H PRN IV hypotension; Start 07/09/19 at 07:50; Stop 07/09/19 at 13:49; Status DC Albumin Human 200 ml @ 200 mls/hr 1X PRN PRN IV Hypotension; Start 07/09/19 at 08:00; Stop 07/09/19 at 13:59; Status DC Sodium Chloride (Normal Saline Flush) 10 ml 1X PRN PRN IV AP catheter pack; Start 07/09/19 at 08:00; Stop 07/10/19 at 07:59; Status DC Sodium Chloride (Normal Saline Flush) 10 ml 1X PRN PRN IV PLASTICS PLATER catheter pack; Start 07/09/19 at 08:00; Stop 07/10/19 at 07:59; Status DC Sodium Chloride 1,000 ml @ 400 mls/hr Q2H30M PRN IV PATENCY; Start 07/09/19 at 07:50; Stop 07/09/19 at 19:49; Status DC Info (PHARMACY MONITORING -- do not chart) 1 each PRN DAILY PRN MC SEE COMMENTS; Start 07/09/19 at 08:00; Status UNV Info (PHARMACY MONITORING -- do not chart) 1 each PRN DAILY PRN MC SEE COMMENTS; Start 07/09/19 at 08:00; Stop 07/11/19 at 08:25; Status DC Sodium Chloride 90 meq/Potassium Chloride 15 meq/ Potassium Phosphate 10 mmol/ Magnesium Sulfate 10 meq/Calcium Gluconate 20 meq/ Multivitamins 10 ml/Chromium/ Copper/Manganese/ Seleni/Zn 0.5 ml/ Total Parenteral Nutrition/Amino Acids/Dextrose/ Fat Emulsion Intravenous 1,512 ml @ 63 mls/hr TPN CONT IV Last administered on 07/09/19at 20:57; Start 07/09/19 at 22:00; Stop 07/10/19 at 21:59; Status DC Sodium Chloride 90 meq/Potassium Chloride 15 meq/ Potassium Phosphate 15 mmol/ Magnesium Sulfate 10 meq/Calcium Gluconate 20 meq/ Multivitamins 10 ml/Chromium/ Copper/Manganese/ Seleni/Zn 0.5 ml/ Total Parenteral Nutrition/Amino Acids/Dextrose/ Fat Emulsion Intravenous 1,512 ml @ 63 mls/hr TPN CONT IV ; Start 07/10/19 at 22:00; Stop 07/10/19 at 14:16; Status DC Sodium Chloride 90 meq/Potassium Chloride 15 meq/ Potassium Phosphate 15 mmol/ Magnesium Sulfate 10 meq/Calcium Gluconate 20 meq/ Multivitamins 10 ml/Chromium/ Copper/Manganese/ Seleni/Zn 0.5 ml/ Total Parenteral Nutrition/Amino Acids/Dextrose/ Fat Emulsion Intravenous 1,200 ml @ 50 mls/hr TPN CONT IV ; Start 07/10/19 at 22:00; Stop 07/10/19 at 14:17; Status DC Sodium Chloride 90 meq/Potassium Chloride 15 meq/ Potassium Phosphate 10 mmol/ Magnesium Sulfate 10 meq/Calcium Gluconate 20 meq/ Multivitamins 10 ml/Chromium/ Copper/Manganese/ Seleni/Zn 0.5 ml/ Total Parenteral Nutrition/Amino Acids/Dextrose/ Fat Emulsion Intravenous 1,200 ml @ 50 mls/hr TPN CONT IV Las t administered on 07/10/19at 23:29; Start 07/10/19 at 22:00; Stop 07/11/19 at 21:59; Status DC Sodium Chloride 1,000 ml @ 1,000 mls/hr Q1H PRN IV hypotension; Start 07/11/19 at 07:28; Stop 07/11/19 at 13:27; Status DC Albumin Human 200 ml @ 200 mls/hr 1X ONCE IV Last administered on 07/11/19at 08:51; Start 07/11/19 at 07:30; Stop 07/11/19 at 08:29; Status DC Diphenhydramine HCl (Benadryl) 25 mg 1X PRN PRN IV ITCHING; Start 07/11/19 at 07:30; Stop 07/12/19 at 07:29; Status DC Diphenhydramine HCl (Benadryl) 25 mg 1X PRN PRN IV ITCHING; Start 07/11/19 at 07:30; Stop 07/12/19 at 07:29; Status DC Sodium Chloride 1,000 ml @ 400 mls/hr Q2H30M PRN IV PATENCY; Start 07/11/19 at 07:28; Stop 07/11/19 at 19:27; Status DC Info (PHARMACY MONITORING -- do not chart) 1 each PRN DAILY PRN MC SEE COMMENTS; Start 07/11/19 at 07:30; Stop 07/22/19 at 13:01; Status DC Metronidazole 100 ml @ 100 mls/hr Q6HRS IV Last administered on 07/27/19at 06:26; Start 07/11/19 at 08:30; Stop 07/27/19 at 09:58; Status DC Micafungin Sodium 100 mg/Dextrose 100 ml @ 100 mls/hr Q24H IV Last administered on 08/18/19at 08:18; Start 07/11/19 at 09:00; Stop 08/18/19 at 20:58; Status DC Propofol 0 ml @ As Directed STK-MED ONCE IV ; Start 07/11/19 at 07:53; Stop 07/11/19 at 07:53; Status DC Etomidate (Amidate) 20 mg STK-MED ONCE IV ; Start 07/11/19 at 07:53; Stop 07/11/19 at 07:54; Status DC Midazolam HCl (Versed) 5 mg STK-MED ONCE .ROUTE ; Start 07/11/19 at 07:57; Stop 07/11/19 at 07:57; Status DC Fentanyl Citrate 30 ml @ 0 mls/hr CONT PRN IV SEE PROTOCOL Last administered on 08/05/19at 06:12; Start 07/11/19 at 08:15; Stop 08/05/19 at 09:19; Status DC Artificial Tears (Artificial Tears) 1 drop PRN Q1HR PRN OU DRY EYE, 1st choice; Start 07/11/19 at 08:15; Stop 08/17/19 at 05:31; Status DC Midazolam HCl 50 mg/Sodium Chloride 50 ml @ 0 mls/hr CONT PRN IV SEE PROTOCOL Last administered on 07/14/19at 22:39; Start 07/11/19 at 08:15; Stop 07/16/19 at 15:59; Status DC Etomidate (Amidate) 8 mg 1X ONCE IV Last administered on 07/11/19at 08:33; S tart 07/11/19 at 08:30; Stop 07/11/19 at 08:31; Status DC Succinylcholine Chloride (Anectine) 120 mg 1X ONCE IV Last administered on 07/11/19at 08:34; Start 07/11/19 at 08:30; Stop 07/11/19 at 08:31; Status DC Midazolam HCl (Versed) 5 mg 1X ONCE IV ; Start 07/11/19 at 08:30; Stop 07/11/19 at 08:31; Status DC Potassium Chloride 15 meq/ Bicarbonate Dialysis Soln w/ out KCl 5,007.5 ml @ 1,000 mls/ hr Q5H1M IV Last administered on 07/12/19at 11:11; Start 07/11/19 at 12:00; Stop 07/12/19 at 11:15; Status DC Potassium Chloride 15 meq/ Bicarbonate Dialysis Soln w/ out KCl 5,007.5 ml @ 1,000 mls/ hr Q5H1M IV Last administered on 07/12/19at 11:12; Start 07/11/19 at 12:00; Stop 07/12/19 at 11:17; Status DC Potassium Chloride 15 meq/ Bicarbonate Dialysis Soln w/ out KCl 5,007.5 ml @ 1,000 mls/ hr Q5H1M IV Last administered on 07/12/19at 11:11; Start 07/11/19 at 12:00; Stop 07/12/19 at 11:19; Status DC Sodium Chloride 90 meq/Potassium Chloride 15 meq/ Potassium Phosphate 10 mmol/ Magnesium Sulfate 10 meq/Calcium Gluconate 20 meq/ Multivitamins 10 ml/Chromium/ Copper/Manganese/ Seleni/Zn 0.5 ml/ Total Parenteral Nutrition/Amino Acids/Dex trose/ Fat Emulsion Intravenous 1,400 ml @ 58.333 mls/ hr TPN CONT IV Last administered on 07/11/19at 21:42; Start 07/11/19 at 22:00; Stop 07/12/19 at 21:59; Status DC Heparin Sodium (Porcine) (Heparin Sodium) 5,000 unit Q8HRS SQ Last administered on 07/16/19at 05:55; Start 07/11/19 at 15:00; Stop 07/16/19 at 13:28; Status DC Meropenem 500 mg/ Sodium Chloride 50 ml @ 100 mls/hr Q6HRS IV Last administered on 07/13/19at 06:00; Start 07/12/19 at 09:00; Stop 07/13/19 at 07:29; Status DC Potassium Phosphate 20 mmol/ Sodium Chloride 106.6667 ml @ 51.667 m... 1X ONCE IV Last administered on 07/12/19at 11:22; Start 07/12/19 at 10:15; Stop 07/12/19 at 12:18; Status DC Acetaminophen (Tylenol Supp) 650 mg PRN Q6HRS PRN WI MILD PAIN / TEMP > 100.3'F Last administered on 11/05/19at 21:21; Start 07/12/19 at 10:30 Potassium Chloride/Water 100 ml @ 100 mls/hr Q1H IV Last administered on at 12:12; Start 07/12/19 at 11:00; Stop 07/12/19 at 12:59; Status DC Potassium Chloride 20 meq/ Bicarbonate Dialysis Soln w/ out KCl 5,010 ml @ 1,000 mls/hr Q5H1M IV Last administered on 07/13/19at 08:48; Start 07/12/19 at 12:00; Stop 07/13/19 at 13:03; Status DC Potassium Chloride 20 meq/ Bicarbonate Dialysis Soln w/ out KCl 5,010 ml @ 1,000 mls/hr Q5H1M IV Last administered on 07/17/19at 14:52; Start 07/12/19 at 11:30; Stop 07/17/19 at 19:59; Status DC Potassium Chloride 20 meq/ Bicarbonate Dialysis Soln w/ out KCl 5,010 ml @ 1,000 mls/hr Q5H1M IV Last administered on 07/17/19at 14:53; Start 07/12/19 at 11:30; Stop 07/17/19 at 19:59; Status DC Sodium Chloride 90 meq/Potassium Chloride 15 meq/ Potassium Phosphate 15 mmol/ Magnesium Sulfate 10 meq/Calcium Gluconate 15 meq/ Multivitamins 10 ml/Chromium/ Copper/Manganese/ Seleni/Zn 0.5 ml/ Total Parenteral Nutrition/Amino Acids/Dextrose/ Fat Emulsion Intravenous 1,400 ml @ 58.333 mls/ hr TPN CONT IV Last administered on 07/12/19at 22:17; Start 07/12/19 at 22:00; Stop 07/13/19 at 21:59; Status DC Cefepime HCl (Maxipime) 2 gm Q12HR IVP Last administered on 07/26/19at 20:56; Start 07/13/19 at 09:00; Stop 07/27/19 at 09:58; Status DC Daptomycin 500 mg/ Sodium Chloride 50 ml @ 100 mls/hr Q48H IV Last administered on 07/29/19at 09:57; Start 07/13/19 at 08:30; Stop 07/29/19 at 10:07; Status DC Lidocaine HCl (Buffered Lidocaine 1%) 3 ml 1X ONCE INJ Last administered on 07/13/19at 10:27; Start 07/13/19 at 10:30; Stop 07/13/19 at 10:31; Status DC Potassium Phosphate 20 mmol/ Sodium Chloride 106.6667 ml @ 51.667 m... 1X ONCE IV Last administered on 07/13/19at 12:51; Start 07/13/19 at 13:00; Stop 07/13/19 at 15:03; Status DC Sodium Chloride 90 meq/Potassium Chloride 15 meq/ Potassium Phosphate 18 mmol/ M agnesium Sulfate 8 meq/Calcium Gluconate 15 meq/ Multivitamins 10 ml/Chromium/ Copper/Manganese/ Seleni/Zn 0.5 ml/ Total Parenteral Nutrition/Amino Acids/Dextrose/ Fat Emulsion Intravenous 1,400 ml @ 58.333 mls/ hr TPN CONT IV Last administered on 07/13/19at 22:16; Start 07/13/19 at 22:00; Stop 07/14/19 at 21:59; Status DC Potassium Chloride 20 meq/ Bicarbonate Dialysis Soln w/ out KCl 5,010 ml @ 1,000 mls/hr Q5H1M IV Last administered on 07/17/19at 14:54; Start 07/13/19 at 16:00; Stop 07/17/19 at 19:59; Status DC Multi-Ingred Cream/Lotion/Oil/ Oint (Artificial Tears Eye Ointment) 1 ramu PRN Q1HR PRN OU DRY EYE, 2nd choice Last administered on 08/01/19at 08:19; Start 07/13/19 at 17:30; Stop 09/21/19 at 14:39; Status DC Sodium Chloride 90 meq/Potassium Chloride 15 meq/ Potassium Phosphate 18 mmol/ Magnesium Sulfate 8 meq/Calcium Gluconate 15 meq/ Multivitamins 10 ml/Chromium/ Copper/Manganese/ Seleni/Zn 0.5 ml/ Total Parenteral Nutrition/Amino Acids/Dextrose/ Fat Emulsion Intravenous 1,400 ml @ 58.333 mls/ hr TPN CONT IV Last administered on 07/14/19at 22:00; Start 07/14/19 at 22:00; Stop 07/15/19 at 21:59; Status DC Albumin Human 500 ml @ 125 mls/hr 1X ONCE IV ; Start 07/14/19 at 14:15; Stop 07/14/19 at 18:14; Status DC Sodium Chloride 90 meq/Potassium Chloride 15 meq/ Potassium Phosphate 18 mmol/ Magnesium Sulfate 8 meq/Calcium Gluconate 15 meq/ Multivitamins 10 ml/Chromium/ Copper/Manganese/ Seleni/Zn 0.5 ml/ Insulin Human Regular 10 unit/ Total Parenteral Nutrition/Amino Acids/Dextrose/ Fat Emulsion Intravenous 1,400 ml @ 58.333 mls/ hr TPN CONT IV Last administered on 07/15/19at 21:43; Start 07/15/19 at 22:00; Stop 07/16/19 at 21:59; Status DC Lidocaine HCl (Buffered Lidocaine 1%) 3 ml STK-MED ONCE .ROUTE ; Start 07/13/19 at 10:00; Stop 07/15/19 at 13:57; Status DC Midazolam HCl 100 mg/Sodium Chloride 100 ml @ 7 mls/hr CONT PRN IV SEE PROTOCOL Last administered on 07/27/19at 15:35; Start 07/16/19 at 16:00; Stop 09/21/19 at 14:38; Status DC Sodium Chloride 90 meq/Potassium Chloride 15 meq/ Potassium Phosphate 18 mmol/ Magnesium Sulfate 8 meq/Calcium Gluconate 15 meq/ Multivitamins 10 ml/Chromium/ Copper/Manganese/ Seleni/Zn 0.5 ml/ Insulin Human Regular 15 unit/ Total Parenteral Nutrition/Amino Acids/Dextrose/ Fat Emulsion Intravenous 1,400 ml @ 58.333 mls/ hr TPN CONT IV Last administered on 07/16/19at 20:34; Start 07/16/19 at 22:00; Stop 07/17/19 at 21:59; Status DC Info (Icu Electrolyte Protocol) 1 ea CONT PRN PRN MC PER PROTOCOL; Start 07/17/19 at 13:15 Sodium Chloride 90 meq/Potassium Chloride 15 meq/ Potassium Phosphate 18 mmol/ Magnesium Sulfate 8 meq/Calcium Gluconate 15 meq/ Multivitamins 10 ml/Chromium/ Copper/Manganese/ Seleni/Zn 0.5 ml/ Insulin Human Regular 15 unit/ Total Parenteral Nutrition/Amino Acids/Dextrose/ Fat Emulsion Intravenous 1,400 ml @ 58.333 mls/ hr TPN CONT IV Last administered on 07/17/19at 22:05; Start 07/17/19 at 22:00; Stop 07/18/19 at 21:59; Status DC Potassium Chloride 15 meq/ Bicarbonate Dialysis Soln w/ out KCl 5,007.5 ml @ 1,000 mls/ hr Q5H1M IV Last administered on 07/20/19at 18:14; Start 07/17/19 at 20:00; Stop 07/21/19 at 13:08; Status DC Potassium Chloride 15 meq/ Bicarbonate Dialysis Soln w/ out KCl 5,007.5 ml @ 1,000 mls/ hr Q5H1M IV Last administered on 07/20/19at 18:14; Start 07/17/19 at 20:00; Stop 07/21/19 at 13:08; Status DC Potassium Chloride 15 meq/ Bicarbonate Dialysis Soln w/ out KCl 5,007.5 ml @ 1,000 mls/ hr Q5H1M IV Last administered on 07/20/19at 18:14; Start 07/17/19 at 20:00; Stop 07/21/19 at 13:08; Status DC Iohexol (Omnipaque 240 Mg/ml) 30 ml 1X ONCE PO Last administered on 07/18/19at 11:30; Start 07/18/19 at 11:30; Stop 07/18/19 at 11:33; Status DC Info (CONTRAST GIVEN -- Rx MONITORING) 1 each PRN DAILY PRN MC SEE COMMENTS; Start 07/18/19 at 11:45; Stop 07/20/19 at 11:44; Status DC Sodium Chloride 90 meq/Potassium Chloride 15 meq/ Potassium Phosphate 18 mmol/ Magnesium Sulfate 8 meq/Calcium Gluconate 15 meq/ Multivitamins 10 ml/Chromium/ Copper/Manganese/ Seleni/Zn 0.5 ml/ Insulin Human Regular 15 unit/ Total Parenteral Nutrition/Amino Acids/Dextrose/ Fat Emulsion Intravenous 1,400 ml @ 58.333 mls/ hr TPN CONT IV Last administered on 07/18/19at 21:47; Start 07/18/19 at 22:00; Stop 07/19/19 at 21:59; Status DC Sodium Chloride 90 meq/Potassium Chloride 15 meq/ Potassium Phosphate 18 mmol/ Magnesium Sulfate 8 meq/Calcium Gluconate 15 meq/ Multivitamins 10 ml/Chromium/ Copper/Manganese/ Seleni/Zn 0.5 ml/ Insulin Human Regular 20 unit/ Total Parenteral Nutrition/Amino Acids/Dextrose/ Fat Emulsion Intravenous 1,400 ml @ 58.333 mls/ hr TPN CONT IV Last administered on 07/19/19at 21:36; Start 07/19/19 at 22:00; Stop 07/20/19 at 21:59; Status DC Alteplase, Recombinant (Cathflo For Central Catheter Clearance) 1 mg 1X ONCE INT CAT Last administered on 07/19/19at 20:03; Start 07/19/19 at 19:30; Stop 07/19/19 at 19:46; Status DC Alteplase, Recombinant (Cathflo For Central Catheter Clearance) 1 mg 1X ONCE INT CAT Last administered on 07/19/19at 22:05; Start 07/19/19 at 22:00; Stop 07/19/19 at 22:01; Status DC Sodium Chloride 90 meq/Potassium Chloride 15 meq/ Potassium Phosphate 18 mmol/ Magnesium Sulfate 8 meq/Calcium Gluconate 15 meq/ Multivitamins 10 ml/Chromium/ Copper/Manganese/ Seleni/Zn 0.5 ml/ Insulin Human Regular 20 unit/ Total Parenteral Nutrition/Amino Acids/Dextrose/ Fat Emulsion Intravenous 1,400 ml @ 58.333 mls/ hr TPN CONT IV Last administered on 07/20/19at 21:30; Start 07/20/19 at 22:00; Stop 07/21/19 at 21:59; Status DC Dexmedetomidine HCl 400 mcg/ Sodium Chloride 100 ml @ 0 mls/hr CONT PRN IV ANXIETY / AGITATION Last administered on 09/17/19at 12:57; Start 07/21/19 at 08:15; Stop 09/17/19 at 18:31; Status DC Sodium Chloride 500 ml @ 500 mls/hr 1X PRN PRN IV ELEVATED BP, SEE COMMENTS; Start 07/21/19 at 08:15 Atropine Sulfate (ATROPINE 0.5mg SYRINGE) 0.5 mg PRN Q5MIN PRN IV SEE COMMENTS; Start 07/21/19 at 08:15 Furosemide (Lasix) 20 mg 1X ONCE IVP Last administered on 07/21/19at 08:19; Start 07/21/19 at 08:15; Stop 07/21/19 at 08:16; Status DC Lidocaine HCl (Buffered Lidocaine 1%) 3 ml STK-MED ONCE .ROUTE ; Start 07/21/19 at 08:39; Stop 07/21/19 at 08:39; Status DC Lidocaine HCl (Buffered Lidocaine 1%) 6 ml 1X ONCE INJ Last administered on 07/21/19at 09:05; Start 07/21/19 at 09:00; Stop 07/21/19 at 09:06; Status DC Sodium Chloride 90 meq/Potassium Chloride 15 meq/ Potassium Phosphate 18 mmol/ Magnesium Sulfate 8 meq/Calcium Gluconate 15 meq/ Multivitamins 10 ml/Chromium/ Copper/Manganese/ Seleni/Zn 0.5 ml/ Insulin Human Regular 20 unit/ Total Parenteral Nutrition/Amino Acids/Dextrose/ Fat Emulsion Intravenous 1,400 ml @ 58.333 mls/ hr TPN CONT IV Last administered on 07/21/19at 22:45; Start 07/21/19 at 22:00; Stop 07/22/19 at 21:59; Status DC Sodium Chloride 1,000 ml @ 1,000 mls/hr Q1H PRN IV hypotension; Start 07/22/19 at 07:30; Stop 07/22/19 at 13:29; Status DC Albumin Human 200 ml @ 200 mls/hr 1X PRN PRN IV Hypotension Last administered on 07/22/19at 09:36; Start 07/22/19 at 07:30; Stop 07/22/19 at 13:29; Status DC Sodium Chloride (Normal Saline Flush) 10 ml 1X PRN PRN IV AP catheter pack; Start 07/22/19 at 07:30; Stop 07/22/19 at 21:29; Status DC Sodium Chloride (Normal Saline Flush) 10 ml 1X PRN PRN IV PLASTICS PLATER catheter pack; Start 07/22/19 at 07:30; Stop 07/23/19 at 07:29; Status DC Sodium Chloride 1,000 ml @ 400 mls/hr Q2H30M PRN IV PATENCY; Start 07/22/19 at 07:30; Stop 07/22/19 at 19:29; Status DC Info (PHARMACY MONITORING -- do not chart) 1 each PRN DAILY PRN MC SEE COMMENTS; Start 07/22/19 at 07:30; Stop 07/22/19 at 13:02; Status DC Info (PHARMACY MONITORING -- do not chart) 1 each PRN DAILY PRN MC SEE COMMENTS; Start 07/22/19 at 07:30; Stop 07/24/19 at 12:45; Status DC Sodium Chloride 90 meq/Potassium Chloride 15 meq/ Potassium Phosphate 10 mmol/ Magnesium Sulfate 8 meq/Calcium Gluconate 15 meq/ Multivitamins 10 ml/Chromium/ Copper/Manganese/ Seleni/Zn 0.5 ml/ Insulin Human Regular 25 unit/ Total Parenteral Nutrition/Amino Acids/Dextrose/ Fat Emulsion Intravenous 1,400 ml @ 58.333 mls/ hr TPN CONT IV Last administered on 07/22/19at 22:19; Start 07/22/19 at 22:00; Stop 07/23/19 at 21:59; Status DC Heparin Sodium (Porcine) (Heparin Sodium) 5,000 unit Q12HR SQ Last administered on 08/14/19at 08:59; Start 07/22/19 at 21:00; Stop 08/14/19 at 10:05; Status DC Ondansetron HCl (Zofran) 4 mg PRN Q6HRS PRN IV NAUSEA/VOMITING; Start 07/25/19 at 07:00; Stop 07/26/19 at 06:59; Status DC Fentanyl Citrate (Fentanyl 2ml Vial) 25 mcg PRN Q5MIN PRN IV MILD PAIN 1-3; Start 07/25/19 at 07:00; Stop 07/26/19 at 06:59; Status DC Fentanyl Citrate (Fentanyl 2ml Vial) 50 mcg PRN Q5MIN PRN IV MODERATE TO SEVERE PAIN; Start 07/25/19 at 07:00; Stop 07/26/19 at 06:59; Status DC Ringer's Solution 1,000 ml @ 30 mls/hr Q24H IV ; Start 07/25/19 at 07:00; Stop 07/25/19 at 18:59; Status DC Lidocaine HCl (Xylocaine-Mpf 1% 2ml Vial) 2 ml PRN 1X PRN ID PRIOR TO IV START; Start 07/25/19 at 07:00; Stop 07/26/19 at 06:59; Status DC Prochlorperazine Edisylate (Compazine) 5 mg PACU PRN PRN IV NAUSEA, MRX1; Start 07/25/19 at 07:00; Stop 07/26/19 at 06:59; Status DC Sodium Chloride 1,000 ml @ 1,000 mls/hr Q1H PRN IV hypotension; Start 07/23/19 at 09:10; Stop 07/23/19 at 15:09; Status DC Albumin Human 200 ml @ 200 mls/hr 1X PRN PRN IV Hypotension Last administered on 07/23/19at 10:10; Start 07/23/19 at 09:15; Stop 07/23/19 at 15:14; Status DC Sodium Chloride 1,000 ml @ 400 mls/hr Q2H30M PRN IV PATENCY; Start 07/23/19 at 09:10; Stop 07/23/19 at 21:09; Status DC Info (PHARMACY MONITORING -- do not chart) 1 each PRN DAILY PRN MC SEE COMMENTS; Start 07/23/19 at 09:15; Stop 07/24/19 at 12:45; Status DC Info (PHARMACY MONITORING -- do not chart) 1 each PRN DAILY PRN MC SEE COMMENTS; Start 07/23/19 at 09:15; Stop 07/24/19 at 12:45; Status DC Sodium Chloride 90 meq/Potassium Chloride 15 meq/ Potassium Phosphate 10 mmol/ Magnesium Sulfate 8 meq/Calcium Gluconate 15 meq/ Multivitamins 10 ml/Chromium/ Copper/Manganese/ Seleni/Zn 0.5 ml/ Insulin Human Regular 25 unit/ Total Parenteral Nutrition/Amino Acids/Dextrose/ Fat Emulsion Intravenous 1,400 ml @ 58.333 mls/ hr TPN CONT IV Last administered on 07/23/19at 22:10; Start 07/23/19 at 22:00; Stop 07/24/19 at 21:59; Status DC Magnesium Sulfate 50 ml @ 25 mls/hr PRN DAILY PRN IV for Mag < 1.7 on am labs Last administered on 10/06/19at 10:57; Start 07/24/19 at 09:15 Sodium Chloride 90 meq/Potassium Chloride 15 meq/ Potassium Phosphate 10 mmol/ Magnesium Sulfate 8 meq/Calcium Gluconate 15 meq/ Multivitamins 10 ml/Chromium/ Copper/Manganese/ Seleni/Zn 0.5 ml/ Insulin Human Regular 25 unit/ Total Parenteral Nutrition/Amino Acids/Dextrose/ Fat Emulsion Intravenous 1,400 ml @ 58.333 mls/ hr TPN CONT IV Last administered on 07/24/19at 21:20; Start 07/24/19 at 22:00; Stop 07/25/19 at 21:59; Status DC Sodium Chloride 1,000 ml @ 1,000 mls/hr Q1H PRN IV hypotension; Start 07/24/19 at 12:23; Stop 07/24/19 at 18:22; Status DC Albumin Human 200 ml @ 200 mls/hr 1X ONCE IV Last administered on 07/24/19at 13:34; Start 07/24/19 at 12:30; Stop 07/24/19 at 13:29; Status DC Diphenhydramine HCl (Benadryl) 25 mg 1X PRN PRN IV ITCHING; Start 07/24/19 at 12:30; Stop 07/25/19 at 12:29; Status DC Diphenhydramine HCl (Benadryl) 25 mg 1X PRN PRN IV ITCHING; Start 07/24/19 at 12:30; Stop 07/25/19 at 12:29; Status DC Info (PHARMACY MONITORING -- do not chart) 1 each PRN DAILY PRN MC SEE COMMENTS; Start 07/24/19 at 12:30; Status Cancel Bupivacaine HCl/ Epinephrine Bitart (Sensorcain-Epi 0.5%-1:[id number] Mpf) 30 ml STK-MED ONCE .ROUTE Last administered on 07/25/19at 11:44; Start 07/25/19 at 11:00; Stop 07/25/19 at 11:01; Status DC Cellulose (Surgicel Fibrillar 1x2) 1 each STK-MED ONCE .ROUTE ; Start 07/25/19 at 11:00; Stop 07/25/19 at 11:01; Status DC Sodium Chloride 90 meq/Potassium Chloride 15 meq/ Potassium Phosphate 10 mmol/ Magnesium Sulfate 12 meq/Calcium Gluconate 15 meq/ Multivitamins 10 ml/Chromium/ Copper/Manganese/ Seleni/Zn 0.5 ml/ Insulin Human Regular 25 unit/ Total Parenteral Nutrition/Amino Acids/Dextrose/ Fat Emulsion Intravenous 1,400 ml @ 58.333 mls/ hr TPN CONT IV Last administered on 07/25/19at 22:24; Start 07/25/19 at 22:00; Stop 07/26/19 at 21:59; Status DC Propofol 20 ml @ As Directed STK-MED ONCE IV ; Start 07/25/19 at 11:07; Stop 07/25/19 at 11:07; Status DC Cellulose (Surgicel Hemostat 4x8) 1 each STK-MED ONCE .ROUTE Last administered on 07/25/19at 11:44; Start 07/25/19 at 11:55; Stop 07/25/19 at 11:56; Status DC Sevoflurane (Ultane) 60 ml STK-MED ONCE IH ; Start 07/25/19 at 12:46; Stop 07/25/19 at 12:46; Status DC Sodium Chloride 1,000 ml @ 1,000 mls/hr Q1H PRN IV hypotension; Start 07/25/19 at 13:51; Stop 07/25/19 at 19:50; Status DC Albumin Human 200 ml @ 200 mls/hr 1X PRN PRN IV Hypotension Last administered on 07/25/19at 14:51; Start 07/25/19 at 14:00; Stop 07/25/19 at 19:59; Status DC Diphenhydramine HCl (Benadryl) 25 mg 1X PRN PRN IV ITCHING; Start 07/25/19 at 14:00; Stop 07/26/19 at 13:59; Status DC Diphenhydramine HCl (Benadryl) 25 mg 1X PRN PRN IV ITCHING; Start 07/25/19 at 14:00; Stop 07/26/19 at 13:59; Status DC Sodium Chloride 1,000 ml @ 400 mls/hr Q2H30M PRN IV PATENCY; Start 07/25/19 at 13:51; Stop 07/26/19 at 01:50; Status DC Info (PHARMACY MONITORING -- do not chart) 1 each PRN DAILY PRN MC SEE COMMENTS; Start 07/25/19 at 14:00; Stop 07/28/19 at 08:16; Status DC Heparin Sodium (Porcine) (Hep Lock Adult) 500 unit STK-MED ONCE IVP ; Start 07/26/19 at 09:29; Stop 07/26/19 at 09:30; Status DC Sodium Chloride 1,000 ml @ 1,000 mls/hr Q1H PRN IV hypotension; Start 07/26/19 at 10:43; Stop 07/26/19 at 16:42; Status DC Sodium Chloride 1,000 ml @ 400 mls/hr Q2H30M PRN IV PATENCY; Start 07/26/19 at 10:43; Stop 07/26/19 at 22:42; Status DC Info (PHARMACY MONITORING -- do not chart) 1 each PRN DAILY PRN MC SEE COMMENTS; Start 07/26/19 at 10:45; Status UNV Info (PHARMACY MONITORING -- do not chart) 1 each PRN DAILY PRN MC SEE COMMENTS; Start 07/26/19 at 10:45; Status UNV Sodium Chloride 90 meq/Potassium Chloride 15 meq/ Magnesium Sulfate 12 meq/Calcium Gluconate 15 meq/ Multivitamins 10 ml/Chromium/ Copper/Manganese/ Seleni/Zn 0.5 ml/ Insulin Human Regular 25 unit/ Total Parenteral Nutrition/Amino Acids/Dextrose/ Fat Emulsion Intravenous 1,400 ml @ 58.333 mls/ hr TPN CONT IV Last administered on 07/26/19at 22:13; Start 07/26/19 at 22:00; Stop 07/27/19 at 21:59; Status DC Sodium Chloride 1,000 ml @ 1,000 mls/hr Q1H PRN IV hypotension; Start 07/27/19 at 07:50; Stop 07/27/19 at 13:49; Status DC Albumin Human 200 ml @ 200 mls/hr 1X ONCE IV ; Start 07/27/19 at 08:00; Stop 07/27/19 at 08:53; Status DC Diphenhydramine HCl (Benadryl) 25 mg 1X PRN PRN IV ITCHING; Start 07/27/19 at 08:00; Stop 07/28/19 at 07:59; Status DC Diphenhydramine HCl (Benadryl) 25 mg 1X PRN PRN IV ITCHING; Start 07/27/19 at 08:00; Stop 07/28/19 at 07:59; Status DC Info (PHARMACY MONITORING -- do not chart) 1 each PRN DAILY PRN MC SEE COMMENTS; Start 07/27/19 at 08:00; Stop 07/28/19 at 08:16; Status DC Albumin Human 50 ml @ 50 mls/hr 1X ONCE IV ; Start 07/27/19 at 08:53; Stop 07/27/19 at 08:56; Status DC Albumin Human 200 ml @ 50 mls/hr PRN 1X PRN IV HYPOTENSION Last administered on 08/02/19at 11:54; Start 07/27/19 at 09:00; Stop 09/08/19 at 11:14; Status DC Meropenem 500 mg/ Sodium Chloride 50 ml @ 100 mls/hr Q12H IV Last administered on 08/16/19at 10:45; Start 07/27/19 at 10:00; Stop 08/16/19 at 12:37; Status DC Sodium Chloride 90 meq/Magnesium Sulfate 12 meq/ Calcium Gluconate 15 meq/ Multivitamins 10 ml/Chromium/ Copper/Manganese/ Seleni/Zn 0.5 ml/ Insulin Human Regular 25 unit/ Total Parenteral Nutrition/Amino Acids/Dextrose/ Fat Emulsion Intravenous 1,400 ml @ 58.333 mls/ hr TPN CONT IV Last administered on 07/27/19at 21:41; Start 07/27/19 at 22:00; Stop 07/28/19 at 21:59; Status DC Sodium Chloride 1,000 ml @ 1,000 mls/hr Q1H PRN IV hypotension; Start 07/28/19 at 07:58; Stop 07/28/19 at 13:57; Status DC Albumin Human 200 ml @ 200 mls/hr 1X PRN PRN IV Hypotension Last administered on 07/28/19at 09:30; Start 07/28/19 at 08:00; Stop 07/28/19 at 13:59; Status DC Sodium Chloride 1,000 ml @ 400 mls/hr Q2H30M PRN IV PATENCY; Start 07/28/19 at 07:58; Stop 07/28/19 at 19:57; Status DC Info (PHARMACY MONITORING -- do not chart) 1 each PRN DAILY PRN MC SEE COMMENTS; Start 07/28/19 at 08:00; Status Cancel Info (PHARMACY MONITORING -- do not chart) 1 each PRN DAILY PRN MC SEE COMMENTS; Start 07/28/19 at 08:15; Status UNV Sodium Chloride 90 meq/Potassium Phosphate 5 mmol/ Magnesium Sulfate 12 meq/Calcium Gluconate 15 meq/ Multivitamins 10 ml/Chromium/ Copper/Manganese/ Seleni/Zn 0.5 ml/ Insulin Human Regular 30 unit/ Total Parenteral Nutrition/Amino Acids/Dextrose/ Fat Emulsion Intravenous 1,400 ml @ 58.333 mls/ hr TPN CONT IV Last administered on 07/28/19at 22:08; Start 07/28/19 at 22:00; Stop 07/29/19 at 21:59; Status DC Linezolid/Dextrose 300 ml @ 300 mls/hr Q12HR IV Last administered on 08/08/19at 20:40; Start 07/29/19 at 11:00; Stop 08/09/19 at 08:10; Status DC Sodium Chloride 90 meq/Potassium Phosphate 15 mmol/ Magnesium Sulfate 12 meq/Calcium Gluconate 15 meq/ Multivitamins 10 ml/Chromium/ Copper/Manganese/ Seleni/Zn 0.5 ml/ Insulin Human Regular 30 unit/ Total Parenteral Nutr ition/Amino Acids/Dextrose/ Fat Emulsion Intravenous 1,400 ml @ 58.333 mls/ hr TPN CONT IV Last administered on 07/29/19at 21:49; Start 07/29/19 at 22:00; Stop 07/30/19 at 21:59; Status DC Sodium Chloride 90 meq/Potassium Phosphate 15 mmol/ Magnesium Sulfate 12 meq/Calcium Gluconate 15 meq/ Multivitamins 10 ml/Chromium/ Copper/Manganese/ Seleni/Zn 0.5 ml/ Insulin Human Regular 40 unit/ Total Parenteral Nutrition/Amino Acids/Dextrose/ Fat Emulsion Intravenous 1,400 ml @ 58.333 mls/ hr TPN CONT IV Last administered on 07/30/19at 21:21; Start 07/30/19 at 22:00; Stop 07/31/19 at 21:59; Status DC Sodium Chloride 1,000 ml @ 1,000 mls/hr Q1H PRN IV hypotension; Start 07/30/19 at 13:26; Stop 07/30/19 at 19:25; Status DC Albumin Human 200 ml @ 200 mls/hr 1X PRN PRN IV Hypotension Last administered on 07/30/19at 15:00; Start 07/30/19 at 13:30; Stop 07/30/19 at 19:29; Status DC Sodium Chloride (Normal Saline Flush) 10 ml 1X PRN PRN IV AP catheter pack; Start 07/30/19 at 13:30; Stop 07/31/19 at 13:29; Status DC Sodium Chloride (Normal Saline Flush) 10 ml 1X PRN PRN IV PLASTICS PLATER catheter pack; Start 07/30/19 at 13:30; Stop 07/31/19 at 13:29; Status DC Sodium Chloride 1,000 ml @ 400 mls/hr Q2H30M PRN IV PATENCY; Start 07/30/19 at 13:26; Stop 07/31/19 at 01:25; Status DC Info (PHARMACY MONITORING -- do not chart) 1 each PRN DAILY PRN MC SEE COMMENTS; Start 07/30/19 at 13:30; Stop 07/30/19 at 13:33; Status DC Info (PHARMACY MONITORING -- do not chart) 1 each PRN DAILY PRN MC SEE COMMENTS; Start 07/30/19 at 13:30; Stop 07/30/19 at 13:34; Status DC Sodium Chloride 90 meq/Potassium Phosphate 19 mmol/ Magnesium Sulfate 12 meq/Calcium Gluconate 15 meq/ Multivitamins 10 ml/Chromium/ Copper/Manganese/ Seleni/Zn 0.5 ml/ Insulin Human Regular 40 unit/ Total Parenteral Nutri tion/Amino Acids/Dextrose/ Fat Emulsion Intravenous 1,400 ml @ 58.333 mls/ hr TPN CONT IV Last administered on 07/31/19at 21:54; Start 07/31/19 at 22:00; Stop 08/01/19 at 21:59; Status DC Sodium Chloride 1,000 ml @ 1,000 mls/hr Q1H PRN IV hypotension; Start 08/01/19 at 09:35; Stop 08/01/19 at 15:34; Status DC Albumin Human 200 ml @ 200 mls/hr 1X PRN PRN IV Hypotension; Start 08/01/19 at 09:45; Stop 08/01/19 at 15:44; Status DC Diphenhydramine HCl (Benadryl) 25 mg 1X PRN PRN IV ITCHING; Start 08/01/19 at 09:45; Stop 08/02/19 at 09:44; Status DC Diphenhydramine HCl (Benadryl) 25 mg 1X PRN PRN IV ITCHING; Start 08/01/19 at 0 9:45; Stop 08/02/19 at 09:44; Status DC Sodium Chloride 1,000 ml @ 400 mls/hr Q2H30M PRN IV PATENCY; Start 08/01/19 at 09:35; Stop 08/01/19 at 21:34; Status DC Info (PHARMACY MONITORING -- do not chart) 1 each PRN DAILY PRN MC SEE COMMENTS; Start 08/01/19 at 09:45; Status Cancel Sodium Chloride 100 meq/Potassium Phosphate 19 mmol/ Magnesium Sulfate 12 meq/Calcium Gluconate 15 meq/ Multivitamins 10 ml/Chromium/ Copper/Manganese/ Seleni/Zn 0.5 ml/ Insulin Human Regular 40 unit/ Potassium Chloride 20 meq/ Total Parenteral Nutrition/Amino Acids/Dextrose/ Fat Emulsion Intravenous 1,400 ml @ 58.333 mls/ hr TPN CONT IV Last administered on 08/01/19at 22:02; Start 08/01/19 at 22:00; Stop 08/02/19 at 21:59; Status DC Furosemide (Lasix) 40 mg 1X ONCE IVP Last administered on 08/01/19at 14:39; Start 08/01/19 at 14:30; Stop 08/01/19 at 14:31; Status DC Metronidazole 100 ml @ 100 mls/hr Q8HRS IV Last administered on 08/09/19at 06:04; Start 08/02/19 at 10:00; Stop 08/09/19 at 08:10; Status DC Sodium Chloride 1,000 ml @ 1,000 mls/hr Q1H PRN IV hypotension; Start 08/02/19 at 08:00; Stop 08/02/19 at 13:59; Status DC Albumin Human 200 ml @ 200 mls/hr 1X PRN PRN IV Hypotension; Start 08/02/19 at 08:00; Stop 08/02/19 at 13:59; Status DC Sodium Chloride 1,000 ml @ 400 mls/hr Q2H30M PRN IV PATENCY; Start 08/02/19 at 08:00; Stop 08/02/19 at 19:59; Status DC Info (PHARMACY MONITORING -- do not chart) 1 each PRN DAILY PRN MC SEE COMMENTS; Start 08/02/19 at 11:30; Status UNV Info (PHARMACY MONITORING -- do not chart) 1 each PRN DAILY PRN MC SEE COMMENTS; Start 08/02/19 at 11:30; Stop 08/04/19 at 12:13; Status DC Sodium Chloride 100 meq/Potassium Phosphate 19 mmol/ Magnesium Sulfate 12 meq/Calcium Gluconate 15 meq/ Multivitamins 10 ml/Chromium/ Copper/Manganese/ Seleni/Zn 0.5 ml/ Insulin Human Regular 40 unit/ Potassium Chloride 20 meq/ Total Parenteral Nutrition/Amino Acids/Dextrose/ Fat Emulsion Intravenous 1,400 ml @ 58.333 mls/ hr TPN CONT IV Last administered on 08/02/19at 21:52; Start 08/02/19 at 22:00; Stop 08/03/19 at 21:59; Status DC Sodium Chloride (Normal Saline Flush) 10 ml QSHIFT PRN IV AFTER MEDS AND BLOOD DRAWS; Start 08/02/19 at 15:00; Stop 08/30/19 at 11:27; Status DC Sodium Chloride (Normal Saline Flush) 10 ml PRN Q5MIN PRN IV AFTER MEDS AND BL OOD DRAWS; Start 08/02/19 at 15:00 Sodium Chloride (Normal Saline Flush) 20 ml PRN Q5MIN PRN IV AFTER MEDS AND BLOOD DRAWS; Start 08/02/19 at 15:00 Sodium Chloride 100 meq/Potassium Phosphate 19 mmol/ Magnesium Sulfate 12 meq/Calcium Gluconate 15 meq/ Multivitamins 10 ml/Chromium/ Copper/Manganese/ Seleni/Zn 0.5 ml/ Insulin Human Regular 40 unit/ Potassium Chloride 20 meq/ Total Parenteral Nutrition/Amino Acids/Dextrose/ Fat Emulsion Intravenous 1,400 ml @ 58.333 mls/ hr TPN CONT IV Last administered on 08/03/19at 21:20; Start 08/03/19 at 22:00; Stop 08/04/19 at 21:59; Status DC Lidocaine HCl (Buffered Lidocaine 1%) 3 ml STK-MED ONCE .ROUTE ; Start 08/03/19 at 13:16; Stop 08/03/19 at 13:16; Status DC Lidocaine HCl (Buffered Lidocaine 1%) 6 ml 1X ONCE INJ Last administered on 08/03/19at 13:45; Start 08/03/19 at 13:30; Stop 08/03/19 at 13:31; Status DC Albumin Human 100 ml @ 100 mls/hr 1X ONCE IV Last administered on 08/03/19at 15:41; Start 08/03/19 at 15:00; Stop 08/03/19 at 15:59; Status DC Albumin Human 50 ml @ 50 mls/hr 1X ONCE IV Last administered on 08/03/19at 15:00; Start 08/03/19 at 15:00; Stop 08/03/19 at 15:59; Status DC Info (PHARMACY MONITORING -- do not chart) 1 each PRN DAILY PRN MC SEE COMMENTS; Start 08/04/19 at 11:30; Status Cancel Info (PHARMACY MONITORING -- do not chart) 1 each PRN DAILY PRN MC SEE COMMENTS; Start 08/04/19 at 11:30; Status UNV Sodium Chloride 100 meq/Potassium Phosphate 10 mmol/ Magnesium Sulfate 12 meq/Calcium Gluconate 15 meq/ Multivitamins 10 ml/Chromium/ Copper/Manganese/ Seleni/Zn 0.5 ml/ Insulin Human Regular 35 unit/ Potassium Chloride 20 meq/ Total Parenteral Nutrition/Amino Acids/Dextrose/ Fat Emulsion Intravenous 1,400 ml @ 58.333 mls/ hr TPN CONT IV Last administered on 08/04/19at 22:10; Start 08/04/19 at 22:00; Stop 08/05/19 at 21:59; Status DC Sodium Chloride 100 meq/Potassium Phosphate 5 mmol/ Magnesium Sulfate 12 meq/Ca lcium Gluconate 15 meq/ Multivitamins 10 ml/Chromium/ Copper/Manganese/ Seleni/Zn 0.5 ml/ Insulin Human Regular 35 unit/ Potassium Chloride 20 meq/ Total Parenteral Nutrition/Amino Acids/Dextrose/ Fat Emulsion Intravenous 1,400 ml @ 58.333 mls/ hr TPN CONT IV Last administered on 08/05/19at 22:59; Start 08/05/19 at 22:00; Stop 08/06/19 at 21:59; Status DC Sodium Chloride 1,000 ml @ 1,000 mls/hr Q1H PRN IV hypotension; Start 08/06/19 at 08:27; Stop 08/06/19 at 14:26; Status DC Albumin Human 200 ml @ 200 mls/hr 1X PRN PRN IV Hypotension Last administered on 08/06/19at 09:18; Start 08/06/19 at 08:30; Stop 08/06/19 at 14:29; Status DC Sodium Chloride 1,000 ml @ 400 mls/hr Q2H30M PRN IV PATENCY; Start 08/06/19 at 08:27; Stop 08/06/19 at 20:26; Status DC Info (PHARMACY MONITORING -- do not chart) 1 each PRN DAILY PRN MC SEE COMMENTS; Start 08/06/19 at 08:30; Status Cancel Info (PHARMACY MONITORING -- do not chart) 1 each PRN DAILY PRN MC SEE COMMENTS; Start 08/06/19 at 08:30; Stop 08/14/19 at 13:10; Status DC Sodium Chloride 100 meq/Potassium Chloride 40 meq/ Magnesium Sulfate 15 meq/Calcium Gluconate 15 meq/ Multivitamins 10 ml/Chromium/ Copper/Manganese/ Seleni/Zn 0.5 ml/ Insulin Human Regular 35 unit/ Total Parenteral Nutrition/Amino Acids/Dextrose/ Fat Emulsion Intravenous 1,400 ml @ 58.333 mls/ hr TPN CONT IV Last administered on 08/06/19at 22:00; Start 08/06/19 at 22:00; Stop 08/07/19 at 21:59; Status DC Potassium Chloride/Water 100 ml @ 100 mls/hr 1X ONCE IV Last administered on 08/06/19at 17:28; Start 08/06/19 at 14:45; Stop 08/06/19 at 15:44; Status DC Sodium Chloride 100 meq/Potassium Chloride 40 meq/ Magnesium Sulfate 15 meq/Calcium Gluconate 15 meq/ Multivitamins 10 ml/Chromium/ Copper/Manganese/ Seleni/Zn 0.5 ml/ Insulin Human Regular 35 unit/ Total Parenteral Nutrition/Amino Acids/Dextrose/ Fat Emulsion Intravenous 1,400 ml @ 58.333 mls/ hr TPN CONT IV Last administered on 08/07/19at 22:46; Start 08/07/19 at 22:00; Stop 08/08/19 at 21:59; Status DC Sodium Chloride 100 meq/Potassium Chloride 40 meq/ Magnesium Sulfate 20 meq/Calcium Gluconate 15 meq/ Multivitamins 10 ml/Chromium/ Copper/Manganese/ Seleni/Zn 0.5 ml/ Insulin Human Regular 35 unit/ Total Parenteral Nutrition/Amino Acids/Dextrose/ Fat Emulsion Intravenous 1,400 ml @ 58.333 mls/ hr TPN CONT IV Last administered on 08/08/19at 22:31; Start 08/08/19 at 22:00; Stop 08/09/19 at 21:59; Status DC Fentanyl Citrate (Fentanyl 2ml Vial) 50 mcg PRN Q2HR PRN IVP PAIN Last administered on 08/15/19at 13:32; Start 08/08/19 at 21:00; Stop 08/16/19 at 12:53; Status DC Fentanyl Citrate (Fentanyl 2ml Vial) 25 mcg PRN Q2HR PRN IVP PAIN; Start 08/08/19 at 21:00; Stop 08/16/19 at 12:54; Status DC Enoxaparin Sodium (Lovenox 100mg Syringe) 100 mg Q12HR SQ ; Start 08/09/19 at 21:00; Status UNV Amino Acids/ Glycerin/ Electrolytes 1,000 ml @ 75 mls/hr [id number] IV ; Start 08/08/19 at 21:15; Status UNV Sodium Chloride 1,000 ml @ 1,000 mls/hr Q1H PRN IV hypotension; Start 08/09/19 at 07:56; Stop 08/09/19 at 13:55; Status DC Albumin Human 200 ml @ 200 mls/hr 1X PRN PRN IV Hypotension Last administered on 08/09/19at 08:40; Start 08/09/19 at 08:00; Stop 08/09/19 at 13:59; Status DC Sodium Chloride 1,000 ml @ 400 mls/hr Q2H30M PRN IV PATENCY; Start 08/09/19 at 07:56; Stop 08/09/19 at 19:55; Status DC Info (PHARMACY MONITORING -- do not chart) 1 each PRN DAILY PRN MC SEE COMMENTS; Start 08/09/19 at 08:00; Status UNV Info (PHARMACY MONITORING -- do not chart) 1 each PRN DAILY PRN MC SEE COMMENTS; Start 08/09/19 at 08:00; Status UNV Daptomycin 430 mg/ Sodium Chloride 50 ml @ 100 mls/hr Q24H IV Last administered on 08/09/19at 12:35; Start 08/09/19 at 09:00; Stop 08/09/19 at 12:49; Status DC Sodium Chloride 100 meq/Potassium Chloride 40 meq/ Magnesium Sulfate 20 meq/Calcium Gluconate 15 meq/ Multivitamins 10 ml/Chromium/ Copper/Manganese/ Seleni/Zn 0.5 ml/ Insulin Human Regular 35 unit/ Total Parenteral Nutrition/Amino Acids/Dextrose/ Fat Emulsion Intravenous 1,400 ml @ 58.333 mls/ hr TPN CONT IV Last administered on 08/09/19at 21:26; Start 08/09/19 at 22:00; Stop 08/10/19 at 21:59; Status DC Daptomycin 430 mg/ Sodium Chloride 50 ml @ 100 mls/hr Q48H IV ; Start 08/11/19 at 09:00; Stop 08/10/19 at 11:55; Status DC Sodium Chloride 100 meq/Potassium Chloride 40 meq/ Magnesium Sulfate 20 meq/Calcium Gluconate 15 meq/ Multivitamins 10 ml/Chromium/ Copper/Manganese/ Seleni/Zn 0.5 ml/ Insulin Human Regular 35 unit/ Total Parenteral Nutrition/Amino Acids/Dextrose/ Fat Emulsion Intravenous 1,400 ml @ 58.333 mls/ hr TPN CONT IV Last administered on 08/10/19at 22:27; Start 08/10/19 at 22:00; Stop 08/11/19 at 21:59; Status DC Daptomycin 430 mg/ Sodium Chloride 50 ml @ 100 mls/hr Q24H IV Last administered on 08/12/19at 15:07; Start 08/10/19 at 13:00; Stop 08/13/19 at 13:15; Status DC Sodium Chloride 100 meq/Potassium Chloride 40 meq/ Magnesium Sulfate 20 meq/Calcium Gluconate 10 meq/ Multivitamins 10 ml/Chromium/ Copper/Manganese/ S thien/Zn 0.5 ml/ Insulin Human Regular 35 unit/ Total Parenteral Nutrition/Amino Acids/Dextrose/ Fat Emulsion Intravenous 1,400 ml @ 58.333 mls/ hr TPN CONT IV Last administered on 08/12/19at 00:06; Start 08/11/19 at 22:00; Stop 08/12/19 at 21:59; Status DC Alteplase, Recombinant (Cathflo For Central Catheter Clearance) 1 mg 1X ONCE INT CAT Last administered on 08/12/19at 11:44; Start 08/12/19 at 10:45; Stop 08/12/19 at 10:46; Status DC Ondansetron HCl (Zofran) 4 mg PRN Q6HRS PRN IV NAUSEA/VOMITING; Start 08/15/19 at 07:00; Stop 08/16/19 at 06:59; Status DC Fentanyl Citrate (Fentanyl 2ml Vial) 25 mcg PRN Q5MIN PRN IV MILD PAIN 1-3; Start 08/15/19 at 07:00; Stop 08/16/19 at 06:59; Status DC Fentanyl Citrate (Fentanyl 2ml Vial) 50 mcg PRN Q5MIN PRN IV MODERATE TO SEVERE PAIN Last administered on 08/15/19at 10:17; Start 08/15/19 at 07:00; Stop 08/16/19 at 06:59; Status DC Ringer's Solution 1,000 ml @ 30 mls/hr Q24H IV ; Start 08/15/19 at 07:00; Stop 08/15/19 at 18:59; Status DC Lidocaine HCl (Xylocaine-Mpf 1% 2ml Vial) 2 ml PRN 1X PRN ID PRIOR TO IV START; Start 08/15/19 at 07:00; Stop 08/16/19 at 06:59; Status DC Prochlorperazine Edisylate (Compazine) 5 mg PACU PRN PRN IV NAUSEA, MRX1; Start 08/15/19 at 07:00; Stop 08/16/19 at 06:59; Status DC Sodium Acetate 50 meq/Potassium Acetate 55 meq/ Magnesium Sulfate 20 meq/Calcium Gluconate 10 meq/ Multivitamins 10 ml/Chromium/ Copper/Manganese/ Seleni/Zn 0.5 ml/ Insulin Human Regular 35 unit/ Total Parenteral Nutrition/Amino Acids/Dextrose/ Fat Emulsion Intravenous 1,400 ml @ 58.333 mls/ hr TPN CONT IV ; Start 08/12/19 at 22:00; Stop 08/12/19 at 14:15; Status DC Sodium Acetate 50 meq/Potassium Acetate 55 meq/ Magnesium Sulfate 20 meq/Calcium Gluconate 10 meq/ Multivitamins 10 ml/Chromium/ Copper/Manganese/ Seleni/Zn 0.5 ml/ Insulin Human Regular 35 unit/ Total Parenteral Nutrition/Amino Acids/Dextrose/ Fat Emulsion Intravenous 1,800 ml @ 75 mls/hr TPN CONT IV Last administered on 08/12/19at 22:38; Start 08/12/19 at 22:00; Stop 08/13/19 at 21:59; Status DC Sodium Chloride 1,000 ml @ 1,000 mls/hr Q1H PRN IV hypotension; Start 08/12/19 at 15:31; Stop 08/12/19 at 21:30; Status DC Diphenhydramine HCl (Benadryl) 25 mg 1X PRN PRN IV ITCHING; Start 08/12/19 at 15:45; Stop 08/13/19 at 15:44; Status DC Diphenhydramine HCl (Benadryl) 25 mg 1X PRN PRN IV ITCHING; Start 08/12/19 at 15:45; Stop 08/13/19 at 15:44; Status DC Sodium Chloride 1,000 ml @ 400 mls/hr Q2H30M PRN IV PATENCY; Start 08/12/19 at 15:31; Stop 08/13/19 at 03:30; Status DC Info (PHARMACY MONITORING -- do not chart) 1 each PRN DAILY PRN MC SEE COMMENTS; Start 08/12/19 at 15:45; Stop 09/13/19 at 14:14; Status DC Sodium Acetate 50 meq/Potassium Acetate 55 meq/ Magnesium Sulfate 20 meq/Calcium Gluconate 10 meq/ Multivitamins 10 ml/Chromium/ Copper/Manganese/ Seleni/Zn 0.5 ml/ Insulin Human Regular 35 unit/ Total Parenteral Nutrition/Amino Acids/Dextrose/ Fat Emulsion Intravenous 1,800 ml @ 75 mls/hr TPN CONT IV Last administered on 08/13/19at 22:03; Start 08/13/19 at 22:00; Stop 08/14/19 at 21:59; Status DC Daptomycin 430 mg/ Sodium Chloride 50 ml @ 100 mls/hr Q24H IV Last administered on 08/18/19at 13:00; Start 08/13/19 at 13:00; Stop 08/18/19 at 20:58; Status DC Heparin Sodium (Porcine) 1000 unit/Sodium Chloride 1,001 ml @ 1,001 mls/hr 1X ONCE IRR ; Start 08/15/19 at 06:00; Stop 08/15/19 at 06:59; Status DC Potassium Acetate 55 meq/Magnesium Sulfate 20 meq/ Calcium Gluconate 10 meq/ Multivitamins 10 ml/Chromium/ Copper/Manganese/ Seleni/Zn 0.5 ml/ Insulin Human Regular 35 unit/ Total Parenteral Nutrition/Amino Acids/Dextrose/ Fat Emulsion Intravenous 1,920 ml @ 80 mls/hr TPN CONT IV Last administered on 08/14/19at 22:10; Start 08/14/19 at 22:00; Stop 08/15/19 at 21:59; Status DC Dexamethasone Sodium Phosphate (Decadron) 4 mg STK-MED ONCE .ROUTE ; Start 08/15/19 at 10:56; Stop 08/15/19 at 10:57; Status DC Ondansetron HCl (Zofran) 4 mg STK-MED ONCE .ROUTE ; Start 08/15/19 at 10:56; Stop 08/15/19 at 10:57; Status DC Rocuronium [place] (Zemuron) 50 mg STK-MED ONCE .ROUTE ; Start 08/15/19 at 10:56; Stop 08/15/19 at 10:57; Status DC Fentanyl Citrate (Fentanyl 2ml Vial) 100 mcg STK-MED ONCE .ROUTE ; Start 08/15/19 at 10:56; Stop 08/15/19 at 10:57; Status DC Bupivacaine HCl/ Epinephrine Bitart (Sensorcain-Epi 0.5%-1:338176 Mpf) 30 ml STK-MED ONCE .ROUTE Last administered on 08/15/19at 12:01; Start 08/15/19 at 10:58; Stop 08/15/19 at 10:58; Status DC Cellulose (Surgicel Hemostat 2x14) 1 each STK-MED ONCE .ROUTE ; Start 08/15/19 at 10:58; Stop 08/15/19 at 10:59; Status DC Iohexol (Omnipaque 300 Mg/ml) 50 ml STK-MED ONCE .ROUTE ; Start 08/15/19 at 10:58; Stop 08/15/19 at 10:59; Status DC Cellulose (Surgicel Hemostat 4x8) 1 each STK-MED ONCE .ROUTE ; Start 08/15/19 at 10:58; Stop 08/15/19 at 10:59; Status DC Bisacodyl (Dulcolax Supp) 10 mg STK-MED ONCE .ROUTE ; Start 08/15/19 at 10:59; Stop 08/15/19 at 10:59; Status DC Heparin Sodium (Porcine) 1000 unit/Sodium Chloride 1,001 ml @ 1,001 mls/hr 1X ONCE IRR ; Start 08/15/19 at 12:00; Stop 08/15/19 at 12:59; Status DC Propofol 20 ml @ As Directed STK-MED ONCE IV ; Start 08/15/19 at 11:05; Stop 08/15/19 at 11:05; Status DC Sevoflurane (Ultane) 90 ml STK-MED ONCE IH ; Start 08/15/19 at 11:05; Stop 08/15/19 at 11:05; Status DC Sevoflurane (Ultane) 60 ml STK-MED ONCE IH ; Start 08/15/19 at 12:26; Stop 08/15/19 at 12:27; Status DC Propofol 20 ml @ As Directed STK-MED ONCE IV ; Start 08/15/19 at 12:26; Stop 08/15/19 at 12:27; Status DC Phenylephrine HCl (PHENYLEPHRINE in 0.9% NACL PF) 1 mg STK-MED ONCE IV ; Start 08/15/19 at 12:34; Stop 08/15/19 at 12:34; Status DC Heparin Sodium (Porcine) (Heparin Sodium) 5,000 unit Q12HR SQ Last administered on 08/24/19at 20:57; Start 08/15/19 at 21:00; Stop 08/25/19 at 09:59; Status DC Sodium Chloride (Normal Saline Flush) 3 ml QSHIFT PRN IV AFTER MEDS AND BLOOD DRAWS; Start 08/15/19 at 13:45; Status Cancel Naloxone HCl (Narcan) 0.4 mg PRN Q2MIN PRN IV SEE INSTRUCTIONS Last administer ed on 09/24/19at 15:15; Start 08/15/19 at 13:45; Stop 10/19/19 at 16:00; Status DC Sodium Chloride 1,000 ml @ 25 mls/hr Q24H IV Last administered on 09/13/19at 13:37; Start 08/15/19 at 13:37; Stop 09/16/19 at 13:09; Status DC Naloxone HCl (Narcan) 0.4 mg PRN Q2MIN PRN IV SEE INSTRUCTIONS; Start 08/15/19 at 14:30; Status UNV Sodium Chloride 1,000 ml @ 25 mls/hr Q24H IV ; Start 08/15/19 at 14:30; Status UNV Hydromorphone HCl 30 ml @ 0 mls/hr CONT PRN PRN IV PER PROTOCOL Last administered on 08/20/19at 16:08; Start 08/15/19 at 14:30; Stop 08/22/19 at 08:55; Status DC Potassium Acetate 55 meq/Magnesium Sulfate 20 meq/ Calcium Gluconate 10 meq/ Multivitamins 10 ml/Chromium/ Copper/Manganese/ Seleni/Zn 0.5 ml/ Insulin Human Regular 35 unit/ Total Parenteral Nutrition/Amino Acids/Dextrose/ Fat Emulsion Intravenous 1,920 ml @ 80 mls/hr TPN CONT IV Last administered on 08/15/19at 22:01; Start 08/15/19 at 22:00; Stop 08/16/19 at 21:59; Status DC Bumetanide (Bumex) 2 mg [id number] IV Last administered on 08/19/19at 13:50; Start 08/16/19 at 14:00; Stop 08/20/19 at 14:10; Status DC Meropenem 1 gm/ Sodium Chloride 100 ml @ 200 mls/hr Q8HRS IV Last administered on 09/09/19at 05:53; Start 08/16/19 at 14:00; Stop 09/09/19 at 09:31; Status DC Potassium Acetate 55 meq/Magnesium Sulfate 20 meq/ Calcium Gluconate 10 meq/ Multivitamins 10 ml/Chromium/ Copper/Manganese/ Seleni/Zn 0.5 ml/ Insulin Human Regular 35 unit/ Total Parenteral Nutrition/Amino Acids/Dextrose/ Fat Emulsion Intravenous 1,920 ml @ 80 mls/hr TPN CONT IV Last administered on 08/16/19at 22:02; Start 08/16/19 at 22:00; Stop 08/17/19 at 21:59; Status DC Hydromorphone HCl (Dilaudid Standard STEAM PRESSURE CHAMBER OPERATOR) 12 mg STK-MED ONCE IV ; Start 08/15/19 at 14:35; Stop 08/16/19 at 13:53; Status DC Artificial Tears (Artificial Tears) 1 drop PRN Q15MIN PRN OU DRY EYE Last administered on 10/11/19at 21:17; Start 08/17/19 at 05:30 Hydromorphone HCl (Dilaudid Standard STEAM PRESSURE CHAMBER OPERATOR) 12 mg STK-MED ONCE IV ; Start 08/16/19 at 12:05; Stop 08/17/19 at 09:15; Status DC Potassium Acetate 65 meq/Magnesium Sulfate 20 meq/ Calcium Gluconate 10 meq/ Multivitamins 10 ml/Chromium/ Copper/Manganese/ Seleni/Zn 0.5 ml/ Insulin Human Regular 30 unit/ Total Parenteral Nutrition/Amino Acids/Dextrose/ Fat Emulsion Intravenous 1,920 ml @ 80 mls/hr TPN CONT IV Last administered on 08/17/19at 22:22; Start 08/17/19 at 22:00; Stop 08/18/19 at 21:59; Status DC Cyclobenzaprine HCl (Flexeril) 10 mg PRN Q6HRS PRN PO MUSCLE SPASMS Last administered on 10/28/19at 19:12; Start 08/18/19 at 10:45 Potassium Acetate 55 meq/Magnesium Sulfate 20 meq/ Calcium Gluconate 10 meq/ Multivitamins 10 ml/Chromium/ Copper/Manganese/ Seleni/Zn 0.5 ml/ Insulin Human Regular 30 unit/ Total Parenteral Nutrition/Amino Acids/Dextrose/ Fat Emulsion Intravenous 1,920 ml @ 80 mls/hr TPN CONT IV Last administered on 08/19/19at 01:00; Start 08/18/19 at 22:00; Stop 08/19/19 at 21:59; Status DC Magnesium Sulfate 50 ml @ 25 mls/hr 1X ONCE IV Last administered on 08/18/19at 17:18; Start 08/18/19 at 12:45; Stop 08/18/19 at 14:44; Status DC Potassium Chloride/Water 100 ml @ 100 mls/hr 1X ONCE IV Last administered on 08/19/19at 11:27; Start 08/19/19 at 12:00; Stop 08/19/19 at 12:59; Status DC Hydromorphone HCl (Dilaudid Standard STEAM PRESSURE CHAMBER OPERATOR) 12 mg STK-MED ONCE IV ; Start 08/17/19 at 10:50; Stop 08/19/19 at 11:02; Status DC Hydromorphone HCl (Dilaudid Standard STEAM PRESSURE CHAMBER OPERATOR) 12 mg STK-MED ONCE IV ; Start 08/18/19 at 13:47; Stop 08/19/19 at 11:03; Status DC Potassium Acetate 30 meq/Magnesium Sulfate 20 meq/ Calcium Gluconate 10 meq/ Multivitamins 10 ml/Chromium/ Copper/Manganese/ Seleni/Zn 0.5 ml/ Insulin Human Regular 30 unit/ Potassium Chloride 30 meq/ Total Parenteral Nutrition/Amino Acids/Dextrose/ Fat Emulsion Intravenous 1,920 ml @ 80 mls/hr TPN CONT IV Last administered on 08/19/19at 22:34; Start 08/19/19 at 22:00; Stop 08/20/19 at 21:59; Status DC Potassium Chloride/Water 100 ml @ 100 mls/hr Q1H IV Last administered on 08/20/19at 13:05; Start 08/20/19 at 07:00; Stop 08/20/19 at 10:59; Status DC Magnesium Sulfate 50 ml @ 25 mls/hr 1X ONCE IV Last administered on 08/20/19at 10:34; Start 08/20/19 at 10:30; Stop 08/20/19 at 12:29; Status DC Potassium Chloride 75 meq/ Magnesium Sulfate 20 meq/Calcium Gluconate 10 meq/ Multivitamins 10 ml/Chromium/ Copper/Manganese/ Seleni/Zn 0.5 ml/ Insulin Human Regular 30 unit/ Total Parenteral Nutrition/Amino Acids/Dextrose/ Fat Emulsion Intravenous 1,920 ml @ 80 mls/hr TPN CONT IV Last administered on 08/20/19at 21:51; Start 08/20/19 at 22:00; Stop 08/21/19 at 22:00; Status DC Potassium Chloride 75 meq/ Magnesium Sulfate 20 meq/Calcium Gluconate 10 meq/ Multivitamins 10 ml/Chromium/ Copper/Manganese/ Seleni/Zn 0.5 ml/ Insulin Human Regular 25 unit/ Total Parenteral Nutrition/Amino Acids/Dextrose/ Fat Emulsion Intravenous 1,920 ml @ 80 mls/hr TPN CONT IV Last administered on 08/21/19at 22:04; Start 08/21/19 at 22:00; Stop 08/22/19 at 21:59; Status DC Hydromorphone HCl (Dilaudid) 0.4 mg PRN Q4HRS PRN IVP PAIN Last administered on 08/22/19at 10:57; Start 08/22/19 at 09:00; Stop 08/22/19 at 18:59; Status DC Micafungin Sodium 100 mg/Dextrose 100 ml @ 100 mls/hr Q24H IV Last administered on 09/13/19at 12:17; Start 08/22/19 at 11:00; Stop 09/14/19 at 09:59; Status DC Daptomycin 485 mg/ Sodium Chloride 50 ml @ 100 mls/hr Q24H IV Last administered on 08/29/19at 13:10; Start 08/22/19 at 11:00; Stop 08/30/19 at 07:44; Status DC Potassium Chloride 75 meq/ Magnesium Sulfate 15 meq/Calcium Gluconate 8 meq/ Multivitamins 10 ml/Chromium/ Copper/Manganese/ Seleni/Zn 0.5 ml/ Insulin Human Regular 25 unit/ Total Parenteral Nutrition/Amino Acids/Dextrose/ Fat Emulsion Intravenous 1,920 ml @ 80 mls/hr TPN CONT IV Last administered on 08/22/19at 23:08; Start 08/22/19 at 22:00; Stop 08/23/19 at 21:59; Status DC Haloperidol Lactate (Haldol Inj) 3 mg 1X ONCE IVP Last administered on 08/22/19at 14:37; Start 08/22/19 at 14:30; Stop 08/22/19 at 14:31; Status DC Hydromorphone HCl (Dilaudid) 1 mg PRN Q4HRS PRN IVP PAIN Last administered on 09/05/19at 06:25; Start 08/22/19 at 19:00; Stop 09/05/19 at 17:10; Status DC Potassium Chloride 75 meq/ Magnesium Sulfate 15 meq/Calcium Gluconate 8 meq/ Multivitamins 10 ml/Chromium/ Copper/Manganese/ Seleni/Zn 0.5 ml/ Insulin Human Regular 20 unit/ Total Parenteral Nutrition/Amino Acids/Dextrose/ Fat Emulsion Intravenous 1,920 ml @ 80 mls/hr TPN CONT IV Last administered on 08/23/19at 22:10; Start 08/23/19 at 22:00; Stop 08/24/19 at 21:59; Status DC Lidocaine HCl (Buffered Lidocaine 1%) 3 ml STK-MED ONCE .ROUTE ; Start 08/24/19 at 11:31; Stop 08/24/19 at 11:31; Status DC Lidocaine HCl (Buffered Lidocaine 1%) 3 ml STK-MED ONCE .ROUTE ; Start 08/24/19 a t 12:28; Stop 08/24/19 at 12:29; Status DC Lidocaine HCl (Buffered Lidocaine 1%) 6 ml 1X ONCE INJ Last administered on 08/24/19at 12:53; Start 08/24/19 at 12:45; Stop 08/24/19 at 12:46; Status DC Potassium Chloride 75 meq/ Magnesium Sulfate 15 meq/Calcium Gluconate 8 meq/ Multivitamins 10 ml/Chromium/ Copper/Manganese/ Seleni/Zn 0.5 ml/ Insulin Human Regular 20 unit/ Total Parenteral Nutrition/Amino Acids/Dextrose/ Fat Emulsion Intravenous 1,920 ml @ 80 mls/hr TPN CONT IV Last administered on 08/24/19at 22:00; Start 08/24/19 at 22:00; Stop 08/25/19 at 21:59; Status DC Potassium Chloride 75 meq/ Magnesium Sulfate 15 meq/Calcium Gluconate 8 meq/ Multivitamins 10 ml/Chromium/ Copper/Manganese/ Seleni/Zn 0.5 ml/ Insulin Human Regular 15 unit/ Total Parenteral Nutrition/Amino Acids/Dextrose/ Fat Emulsion Intravenous 1,920 ml @ 80 mls/hr TPN CONT IV Last administered on 08/25/19at 22:28; Start 08/25/19 at 22:00; Stop 08/26/19 at 21:59; Status DC Vecuronium Ringling (Norcuron Bolus) 6 mg PRN Q6HRS PRN IV VENT ASYNCHRONY; Start 08/25/19 at 19:15; Stop 08/25/19 at 19:35; Status DC Bumetanide (Bumex) 2 mg 1X ONCE IV Last administered on 08/25/19at 22:09; Start 08/25/19 at 19:45; Stop 08/25/19 at 19:46; Status DC Lidocaine HCl (Buffered Lidocaine 1%) 3 ml STK-MED ONCE .ROUTE ; Start 08/26/19 at 07:59; Stop 08/26/19 at 07:59; Status DC Midazolam HCl (Versed) 5 mg STK-MED ONCE .ROUTE ; Start 08/26/19 at 08:36; Stop 08/26/19 at 08:36; Status DC Fentanyl Citrate (Fentanyl 5ml Vial) 250 mcg STK-MED ONCE .ROUTE ; Start 08/26/19 at 08:36; Stop 08/26/19 at 08:37; Status DC Lidocaine HCl (Buffered Lidocaine 1%) 3 ml 1X ONCE IJ Last administered on 08/26/19at 09:30; Start 08/26/19 at 09:15; Stop 08/26/19 at 09:16; Status DC Midazolam HCl (Versed) 5 mg 1X ONCE IV Last administered on 08/26/19at 09:30; Start 08/26/19 at 09:15; Stop 08/26/19 at 09:16; Status DC Fentanyl Citrate (Fentanyl 5ml Vial) 250 mcg 1X ONCE IV Last administered on 08/26/19at 09:30; Start 08/26/19 at 09:15; Stop 08/26/19 at 09:16; Status DC Bumetanide (Bumex) 2 mg DAILY IV Last administered on 09/05/19at 08:07; Start 08/26/19 at 10:00; Stop 09/05/19 at 17:15; Status DC Potassium Chloride 75 meq/ Magnesium Sulfate 15 meq/ Multivitamins 10 ml/Chromium/ Copper/Manganese/ Seleni/Zn 0.5 ml/ Insulin Human Regular 15 unit/ Total Parenteral Nutrition/Amino Acids/Dextrose/ Fat Emulsion Intravenous 1,920 ml @ 80 mls/hr TPN CONT IV Last administered on 08/26/19at 21:59; Start 08/26/19 at 22:00; Stop 08/27/19 at 21:59; Status DC Metoclopramide HCl (Reglan Vial) 10 mg PRN Q3HRS PRN IVP NAUSEA/VOMITING-3rd choice Last administered on 09/01/19at 04:25; Start 08/27/19 at 16:45 Potassium Chloride 75 meq/ Magnesium Sulfate 15 meq/ Multivitamins 10 ml/Chromium/ Copper/Manganese/ Seleni/Zn 0.5 ml/ Insulin Human Regular 15 unit/ Total Parenteral Nutrition/Amino Acids/Dextrose/ Fat Emulsion Intravenous 1,920 ml @ 80 mls/hr TPN CONT IV Last administered on 08/27/19at 22:41; Start 08/27/19 at 22:00; Stop 08/28/19 at 21:59; Status DC Magnesium Sulfate 50 ml @ 25 mls/hr 1X ONCE IV Last administered on 08/28/19at 10:44; Start 08/28/19 at 09:00; Stop 08/28/19 at 10:59; Status DC Potassium Chloride/Water 100 ml @ 100 mls/hr 1X ONCE IV Last administered on 08/28/19at 09:37; Start 08/28/19 at 09:00; Stop 08/28/19 at 09:59; Status DC Duloxetine HCl (Cymbalta) 30 mg DAILY PO Last administered on 08/29/19at 09:48; Start 08/28/19 at 14:00; Stop 08/31/19 at 10:25; Status DC Potassium Chloride 80 meq/ Magnesium Sulfate 20 meq/ Multivitamins 10 ml/Chromium/ Copper/Manganese/ Seleni/Zn 0.5 ml/ Insulin Human Regular 15 unit/ Total Parenteral Nutrition/Amino Acids/Dextrose/ Fat Emulsion Intravenous 1,920 ml @ 80 mls/hr TPN CONT IV Last administered on 08/28/19at 21:42; Start 08/28/19 at 22:00; Stop 08/29/19 at 21:59; Status DC Potassium Chloride 80 meq/ Magnesium Sulfate 20 meq/ Multivitamins 10 ml/Chromium/ Copper/Manganese/ Seleni/Zn 0.5 ml/ Insulin Human Regular 15 unit/ Total Parenteral Nutrition/Amino Acids/Dextrose/ Fat Emulsion Intravenous 1,920 ml @ 80 mls/hr TPN CONT IV Last administered on 08/29/19at 22:20; Start 08/29/19 at 22:00; Stop 08/30/19 at 21:59; Status DC Lidocaine HCl (Buffered Lidocaine 1%) 3 ml STK-MED ONCE .ROUTE ; Start 08/30/19 at 09:54; Stop 08/30/19 at 09:55; Status DC Hydromorphone HCl (Dilaudid Standard [employer]) 12 mg STK-MED ONCE IV ; Start 08/19/19 at 15:50; Stop 08/30/19 at 11:24; Status DC Potassium Chloride 80 meq/ Magnesium Sulfate 20 meq/ Multivitamins 10 ml/Chromium/ Copper/Manganese/ Seleni/Zn 0.5 ml/ Insulin Human Regular 15 unit/ Total Parenteral Nutrition/Amino Acids/Dextrose/ Fat Emulsion Intravenous 1,920 ml @ 80 mls/hr TPN CONT IV Last administered on 08/30/19at 21:40; Start 08/30/19 at 22:00; Stop 08/31/19 at 21:59; Status DC Lidocaine HCl (Buffered Lidocaine 1%) 6 ml 1X ONCE INJ Last administered on 08/30/19at 14:15; Start 08/30/19 at 14:15; Stop 08/30/19 at 14:16; Status DC Potassium Chloride 80 meq/ Magnesium Sulfate 20 meq/ Multivitamins 10 ml/Chromium/ Copper/Manganese/ Seleni/Zn 1 ml/ Insulin Human Regular 15 unit/ Total Parenteral Nutrition/Amino Acids/Dextrose/ Fat Emulsion Intravenous 1,920 ml @ 80 mls/hr TPN CONT IV Last administered on 08/31/19at 22:04; Start 08/31/19 at 22:00; Stop 09/01/19 at 21:59; Status DC Potassium Chloride/Water 100 ml @ 100 mls/hr 1X ONCE IV Last administered on 09/01/19at 11:34; Start 09/01/19 at 11:00; Stop 09/01/19 at 11:59; Status DC Potassium Chloride 90 meq/ Magnesium Sulfate 20 meq/ Multivitamins 10 ml/Chromium/ Copper/Manganese/ Seleni/Zn 1 ml/ Insulin Human Regular 15 unit/ Total Parenteral Nutrition/Amino Acids/Dextrose/ Fat Emulsion Intravenous 1,920 ml @ 80 mls/hr TPN CONT IV Last administered on 09/01/19at 22:57; Start 09/01/19 at 22:00; Stop 09/02/19 at 21:59; Status DC Potassium Chloride 90 meq/ Magnesium Sulfate 20 meq/ Multivitamins 10 ml/Chromium/ Copper/Manganese/ Seleni/Zn 1 ml/ Insulin Human Regular 15 unit/ Total Parenteral Nutrition/Amino Acids/Dextrose/ Fat Emulsion Intravenous 1,920 ml @ 80 mls/hr TPN CONT IV Last administered on 09/02/19at 22:48; Start 09/02/19 at 22:00; Stop 09/03/19 at 21:59; Status DC Potassium Chloride 90 meq/ Magnesium Sulfate 20 meq/ Multivitamins 10 ml/Chromium/ Copper/Manganese/ Seleni/Zn 1 ml/ Insulin Human Regular 15 unit/ Total Parenteral Nutrition/Amino Acids/Dextrose/ Fat Emulsion Intravenous 1,890 ml @ 78.75 mls/ hr TPN CONT IV Last administered on 09/03/19at 22:15; Start 09/03/19 at 22:00; Stop 09/04/19 at 21:59; Status DC Linezolid/Dextrose 300 ml @ 300 mls/hr Q12HR IV Last administered on 09/06/19at 21:08; Start 09/04/19 at 09:00; Stop 09/07/19 at 08:11; Status DC Daptomycin 450 mg/ Sodium Chloride 50 ml @ 100 mls/hr Q24H IV Last administered on 09/07/19at 09:25; Start 09/04/19 at 09:00; Stop 09/08/19 at 08:30; Status DC Potassium Chloride 90 meq/ Magnesium Sulfate 20 meq/ Multivitamins 10 ml/Chromium/ Copper/Manganese/ Seleni/Zn 1 ml/ Insulin Human Regular 15 unit/ Total Parenteral Nutrition/Amino Acids/Dextrose/ Fat Emulsion Intravenous 1,890 ml @ 78.75 mls/ hr TPN CONT IV Last administered on 09/04/19at 21:34; Start 09/04/19 at 22:00; Stop 09/05/19 at 21:59; Status DC Lorazepam (Ativan Inj) 2 mg STK-MED ONCE .ROUTE ; Start 09/04/19 at 14:58; Stop 09/04/19 at 14:58; Status DC Metoprolol Tartrate (Lopressor Vial) 5 mg 1X ONCE IVP Last administered on 09/04/19at 15:31; Start 09/04/19 at 15:15; Stop 09/04/19 at 15:16; Status DC Lorazepam (Ativan Inj) 2 mg 1X ONCE IVP Last administered on 09/04/19at 15:30; Start 09/04/19 at 15:15; Stop 09/04/19 at 15:16; Status DC Enoxaparin Sodium (Lovenox 40mg Syringe) 40 mg Q24H SQ Last administered on 09/23/19at 17:44; Start 09/04/19 at 17:00; Stop 09/25/19 at 06:50; Status DC Lorazepam (Ativan Inj) 1 mg PRN Q4HRS PRN IVP ANXIETY / AGITATION MILD-MOD Last administered on 09/18/19at 15:55; Start 09/04/19 at 19:15; Stop 09/20/19 at 11:45; Status DC Lorazepam (Ativan Inj) 2 mg PRN Q4HRS PRN IVP ANXIETY / AGITATION SEVERE Last administered on 09/19/19at 07:55; Start 09/04/19 at 19:15; Stop 09/20/19 at 11:45; Status DC Fentanyl Citrate (Fentanyl 2ml Vial) 50 mcg PRN Q4HRS PRN IVP SEVERE PAIN Last administered on 10/01/19at 05:15; Start 09/05/19 at 13:15; Stop 10/02/19 at 09:29; Status DC Fentanyl Citrate (Fentanyl 2ml Vial) 25 mcg PRN Q4HRS PRN IVP MODERATE PAIN Last administered on 10/01/19at 00:27; Start 09/05/19 at 13:15; Stop 10/02/19 at 09:30; Status DC Potassium Chloride 90 meq/ Magnesium Sulfate 20 meq/ Multivitamins 10 ml/Chromium/ Copper/Manganese/ Seleni/Zn 1 ml/ Insulin Human Regular 15 unit/ Total Parenteral Nutrition/Amino Acids/Dextrose/ Fat Emulsion Intravenous 1,890 ml @ 78.75 mls/ hr TPN CONT IV Last administered on 09/05/19at 22:18; Start 09/05/19 at 22:00; Stop 09/06/19 at 21:59; Status DC Furosemide (Lasix) 40 mg 1X ONCE IVP Last administered on 09/05/19at 21:51; Start 09/05/19 at 21:45; Stop 09/05/19 at 21:48; Status DC Albumin Human 100 ml @ 100 mls/hr 1X PRN PRN IV SEE COMMENTS; Start 09/06/19 at 01:30 Furosemide (Lasix) 40 mg [id number] IVP Last administered on 09/21/19at 08:04; Start 09/06/19 at 14:00; Stop 09/21/19 at 13:07; Status DC Potassium Chloride 90 meq/ Magnesium Sulfate 20 meq/ Multivitamins 10 m l/Chromium/ Copper/Manganese/ Seleni/Zn 1 ml/ Insulin Human Regular 15 unit/ Total Parenteral Nutrition/Amino Acids/Dextrose/ Fat Emulsion Intravenous 1,800 ml @ 75 mls/hr TPN CONT IV Last administered on 09/06/19at 22:31; Start 09/06/19 at 22:00; Stop 09/07/19 at 21:59; Status DC Potassium Chloride 90 meq/ Magnesium Sulfate 20 meq/ Multivitamins 10 ml/Chromium/ Copper/Manganese/ Seleni/Zn 1 ml/ Insulin Human Regular 15 unit/ Total Parenteral Nutrition/Amino Acids/Dextrose/ Fat Emulsion Intravenous 1,800 ml @ 75 mls/hr TPN CONT IV Last administered on 09/07/19at 22:28; Start 09/07/19 at 22:00; Stop 09/08/19 at 21:59; Status DC Potassium Chloride 110 meq/ Magnesium Sulfate 20 meq/ Multivitamins 10 ml/Chromium/ Copper/Manganese/ Seleni/Zn 1 ml/ Insulin Human Regular 15 unit/ Total Parenteral Nutrition/Amino Acids/Dextrose/ Fat Emulsion Intravenous 1,800 ml @ 75 mls/hr TPN CONT IV Last administered on 09/08/19at 22:01; Start 09/08/19 at 22:00; Stop 09/09/19 at 21:59; Status DC Saliva Substitute (Biotene Moisturizing Mouth) 2 spray PRN Q15MIN PRN PO DRY MOUTH; Start 09/08/19 at 11:00 Potassium Chloride 110 meq/ Magnesium Sulfate 20 meq/ Multivitamins 10 ml/Chromium/ Copper/Manganese/ Seleni/Zn 1 ml/ Insulin Human Regular 15 unit/ Total Parenteral Nutrition/Amino Acids/Dextrose/ Fat Emulsion Intravenous 1,800 ml @ 75 mls/hr TPN CONT IV Last administered on 09/09/19at 22:21; Start 09/09/19 at 22:00; Stop 09/10/19 at 21:59; Status DC Potassium Chloride 110 meq/ Magnesium Sulfate 20 meq/ Multivitamins 10 m l/Chromium/ Copper/Manganese/ Seleni/Zn 1 ml/ Insulin Human Regular 15 unit/ Total Parenteral Nutrition/Amino Acids/Dextrose/ Fat Emulsion Intravenous 1,800 ml @ 75 mls/hr TPN CONT IV Last administered on 09/10/19at 22:04; Start 09/10/19 at 22:00; Stop 09/11/19 at 21:59; Status DC Potassium Chloride 110 meq/ Magnesium Sulfate 20 meq/ Multivitamins 10 ml/Chromium/ Copper/Manganese/ Seleni/Zn 1 ml/ Insulin Human Regular 15 unit/ Total Parenteral Nutrition/Amino Acids/Dextrose/ Fat Emulsion Intravenous 1,800 ml @ 75 mls/hr TPN CONT IV Last administered on 09/11/19at 22:48; Start 09/11/19 at 22:00; Stop 09/12/19 at 21:59; Status DC Potassium Chloride 70 meq/ Magnesium Sulfate 20 meq/ Multivitamins 10 ml/Chromium/ Copper/Manganese/ Seleni/Zn 1 ml/ Insulin Human Regular 15 unit/ Total Parenteral Nutrition/Amino Acids/Dextrose/ Fat Emulsion Intravenous 1,800 ml @ 75 mls/hr TPN CONT IV Last administered on 09/12/19at 21:39; Start 09/12/19 at 22:00; Stop 09/13/19 at 21:59; Status DC Meropenem 500 mg/ Sodium Chloride 50 ml @ 100 mls/hr Q6HRS IV Last administered on 09/14/19at 06:02; Start 09/12/19 at 18:00; Stop 09/14/19 at 09:59; Status DC Barium Sulfate (Varibar Thin Liquid Apple) 148 gm 1X ONCE PO ; Start 09/13/19 at 11:45; Stop 09/13/19 at 11:49; Status DC Potassium Chloride 70 meq/ Magnesium Sulfate 20 meq/ Multivitamins 10 ml/Chromium/ Copper/Manganese/ Seleni/Zn 1 ml/ Insulin Human Regular 15 unit/ Total Parenteral Nutrition/Amino Acids/Dextrose/ Fat Emulsion Intravenous 1,800 ml @ 75 mls/hr TPN CONT IV Last administered on 09/13/19at 22:27; Start 09/13/19 at 22:00; Stop 09/14/19 at 21:59; Status DC Piperacillin Sod/ Tazobactam Sod 3.375 gm/Sodium Chloride 50 ml @ 100 mls/hr Q6HRS IV Last administered on 09/22/19at 06:10; Start 09/14/19 at 12:00; Stop 09/22/19 at 07:26; Status DC Potassium Chloride 70 meq/ Magnesium Sulfate 20 meq/ Multivitamins 10 ml/Chromium/ Copper/Manganese/ Seleni/Zn 1 ml/ Insulin Human Regular 15 unit/ Total Parenteral Nutrition/Amino Acids/Dextrose/ Fat Emulsion Intravenous 1,800 ml @ 75 mls/hr TPN CONT IV Last administered on 09/14/19at 22:03; Start 09/14/19 at 22:00; Stop 09/15/19 at 21:59; Status DC Potassium Chloride 70 meq/ Magnesium Sulfate 20 meq/ Multivitamins 10 ml/Chromium/ Copper/Manganese/ Seleni/Zn 1 ml/ Insulin Human Regular 15 unit/ Total Parenteral Nutrition/Amino Acids/Dextrose/ Fat Emulsion Intravenous 1,800 ml @ 75 mls/hr TPN CONT IV Last administered on 09/15/19at 22:33; Start 09/15/19 at 22:00; Stop 09/16/19 at 21:59; Status DC Potassium Chloride 70 meq/ Magnesium Sulfate 20 meq/ Multivitamins 10 ml/Chromium/ Copper/Manganese/ Seleni/Zn 1 ml/ Insulin Human Regular 15 unit/ Total Parenteral Nutrition/Amino Acids/Dextrose/ Fat Emulsion Intravenous 1,800 ml @ 75 mls/hr TPN CONT IV Last administered on 09/16/19at 23:13; Start 09/16/19 at 22:00; Stop 09/17/19 at 21:59; Status DC Potassium Chloride 80 meq/ Magnesium Sulfate 20 meq/ Multivitamins 10 ml/Chromium/ Copper/Manganese/ Seleni/Zn 1 ml/ Insulin Human Regular 15 unit/ Total Parenteral Nutrition/Amino Acids/Dextrose/ Fat Emulsion Intravenous 1,800 ml @ 75 mls/hr TPN CONT IV Last administered on 09/17/19at 22:30; Start at 22:00; Stop 09/18/19 at 21:59; Status DC Potassium Chloride 80 meq/ Magnesium Sulfate 20 meq/ Multivitamins 10 ml/Chromiu m/ Copper/Manganese/ Seleni/Zn 1 ml/ Insulin Human Regular 15 unit/ Total Parenteral Nutrition/Amino Acids/Dextrose/ Fat Emulsion Intravenous 1,800 ml @ 75 mls/hr TPN CONT IV Last administered on 09/18/19at 21:54; Start 09/18/19 at 22:00; Stop 09/19/19 at 21:59; Status DC Potassium Chloride/Water 100 ml @ 100 mls/hr 1X ONCE IV Last administered on 09/19/19at 10:15; Start 09/19/19 at 10:00; Stop 09/19/19 at 10:59; Status DC Potassium Chloride 90 meq/ Magnesium Sulfate 20 meq/ Multivitamins 10 ml/Chromium/ Copper/Manganese/ Seleni/Zn 1 ml/ Insulin Human Regular 20 unit/ Total Parenteral Nutrition/Amino Acids/Dextrose/ Fat Emulsion Intravenous 1,800 ml @ 75 mls/hr TPN CONT IV Last administered on 09/19/19at 22:28; Start 09/19/19 at 22:00; Stop 09/20/19 at 21:59; Status DC Potassium Chloride 90 meq/ Magnesium Sulfate 20 meq/ Multivitamins 10 ml/Chromium/ Copper/Manganese/ Seleni/Zn 1 ml/ Insulin Human Regular 20 unit/ Total Parenteral Nutrition/Amino Acids/Dextrose/ Fat Emulsion Intravenous 1,800 ml @ 75 mls/hr TPN CONT IV Last administered on 09/20/19at 22:08; Start 09/20/19 at 22:00; Stop 09/21/19 at 21:59; Status DC Lorazepam (Ativan Inj) 0.25 mg PRN Q4HRS PRN IVP ANXIETY / AGITATION Last administered on 10/30/19at 00:27; Start 09/21/19 at 07:30 Potassium Chloride 90 meq/ Magnesium Sulfate 20 meq/ Multivitamins 10 ml/Chromium/ Copper/Manganese/ Seleni/Zn 1 ml/ Insulin Human Regular 20 unit/ Total Parenteral Nutrition/Amino Acids/Dextrose/ Fat Emulsion Intravenous 1,800 ml @ 75 mls/hr TPN CONT IV Last administered on 09/21/19at 23:13; Start 09/21/19 at 22:00; Stop 09/22/19 at 21:59; Status DC Furosemide (Lasix) 40 mg DAILY IVP Last administered on 09/23/19at 11:14; Start 09/21/19 at 13:30; Stop 09/25/19 at 09:12; Status DC Fluoxetine HCl (PROzac) 20 mg QHS PEG Last administered on 11/05/19at 21:07; Start 09/22/19 at 21:00 Fentanyl (Duragesic 50mcg/ Hr Patch) 1 patch Q72H TD Last administered on 09/22/19at 21:22; Start 09/22/19 at 21:00; Stop 10/01/19 at 12:00; Status DC Potassium Chloride 40 meq/ Potassium Acetate 60 meq/Magnesium Sulfate 10 meq/ Multivitamins 10 ml/Chromium/ Copper/Manganese/ Seleni/Zn 1 ml/ Insulin Human Regular 20 unit/ Total Parenteral Nutrition/Amino Acids/Dextrose/ Fat Emulsion Intravenous 1,800 ml @ 75 mls/hr TPN CONT IV Last administered on 09/23/19at 00:03; Start 09/22/19 at 22:00; Stop 09/23/19 at 21:59; Status DC Potassium Acetate 80 meq/Magnesium Sulfate 5 meq/ Multivitamins 10 ml/Chromium/ Copper/Manganese/ Seleni/Zn 1 ml/ Insulin Human Regular 20 unit/ Total Parenteral Nutrition/Amino Acids/Dextrose/ Fat Emulsion Intravenous 1,920 ml @ 80 mls/hr TPN CONT IV Last administered on 09/23/19at 21:59; Start 09/23/19 at 2 2:00; Stop 09/24/19 at 21:59; Status DC Potassium Acetate 60 meq/Magnesium Sulfate 5 meq/ Multivitamins 10 ml/Chromium/ Copper/Manganese/ Seleni/Zn 1 ml/ Insulin Human Regular 30 unit/ Total Parenteral Nutrition/Amino Acids/Dextrose/ Fat Emulsion Intravenous 1,920 ml @ 80 mls/hr TPN CONT IV Last administered on 09/24/19at 21:54; Start 09/24/19 at 22:00; Stop 09/25/19 at 21:59; Status DC Norepinephrine Bitartrate 8 mg/ Dextrose 258 ml @ 13.332 mls/ hr CONT PRN IV PER PROTOCOL Last administered on 10/20/19at 09:09; Start 09/25/19 at 06:30 Albumin Human 500 ml @ 125 mls/hr 1X ONCE IV Last administered on 09/25/19at 08:10; Start 09/25/19 at 08:15; Stop 09/25/19 at 12:14; Status DC Potassium Acetate 40 meq/Magnesium Sulfate 5 meq/ Multivitamins 10 ml/Chromium/ Copper/Manganese/ Seleni/Zn 1 ml/ Insulin Human Regular 30 unit/ Total Parenteral Nutrition/Amino Acids/Dextrose/ Fat Emulsion Intravenous 1,920 ml @ 80 mls/hr TPN CONT IV Last administered on 09/25/19at 22:23; Start 09/25/19 at 22:00; Stop 09/26/19 at 21:59; Status DC Meropenem 1 gm/ Sodium Chloride 100 ml @ 200 mls/hr Q8HRS IV ; Start 09/25/19 at 14:00; Status Cancel Meropenem 1 gm/ Sodium Chloride 100 ml @ 200 mls/hr Q8HRS IV Last administered on 09/25/19at 11:04; Start 09/25/19 at 10:00; Stop 09/25/19 at 13:00; Status DC Meropenem 1 gm/ Sodium Chloride 100 ml @ 200 mls/hr Q12HR IV Last administered on 10/13/19at 08:27; Start 09/25/19 at 21:00; Stop 10/13/19 at 08:56; Status DC Sodium Chloride 1,000 ml @ 1,000 mls/hr 1X ONCE IV Last administered on 0at 11:06; Start 09/25/19 at 10:45; Stop 09/25/19 at 11:44; Status DC Micafungin Sodium 100 mg/Dextrose 100 ml @ 100 mls/hr Q24H IV Last administered on 10/12/19at 12:34; Start 09/25/19 at 11:00; Stop 10/13/19 at 08:56; Status DC Daptomycin 410 mg/ Sodium Chloride 50 ml @ 100 mls/hr Q24H IV Last administered on 09/27/19at 13:33; Start 09/25/19 at 14:00; Stop 09/28/19 at 08:30; Status DC Midazolam HCl (Versed) 2 mg STK-MED ONCE .ROUTE ; Start 09/25/19 at 14:47; Stop 09/25/19 at 14:48; Status DC Fentanyl Citrate (Fentanyl 2ml Vial) 100 mcg STK-MED ONCE .ROUTE ; Start 09/25/19 at 14:47; Stop 09/25/19 at 14:48; Status DC Flumazenil (Romazicon) 0.5 mg STK-MED ONCE IV ; Start 09/25/19 at 14:48; Stop 09/25/19 at 14:48; Status DC Naloxone HCl (Narcan) 0.4 mg STK-MED ONCE .ROUTE ; Start 09/25/19 at 14:48; Stop 09/25/19 at 14:48; Status DC Lidocaine HCl (Lidocaine 1% 20ml Vial) 20 ml STK-MED ONCE .ROUTE ; Start 09/25/19 at 14:48; Stop 09/25/19 at 14:48; Status DC Midazolam HCl (Versed) 2 mg 1X ONCE IV Last administered on 09/25/19at 15:28; Start 09/25/19 at 15:00; Stop 09/25/19 at 15:01; Status DC Fentanyl Citrate (Fentanyl 2ml Vial) 100 mcg 1X ONCE IV Last administered on 09/25/19at 15:28; Start 09/25/19 at 15:00; Stop 09/25/19 at 15:01; Status DC Lidocaine HCl (Lidocaine 1% 20ml Vial) 20 ml 1X ONCE INJ Last administered on 09/25/19at 15:30; Start 09/25/19 at 15:00; Stop 09/25/19 at 15:01; Status DC Sodium Chloride 1,000 ml @ 100 mls/hr Q10H IV Last administered on 10/04/19at 07:30; Start 09/25/19 at 20:00; Stop 10/04/19 at 11:26; Status DC Sodium Bicarbonate (Sodium Bicarb Adult 8.4% Syr) 50 meq 1X ONCE IV Last administered on 09/25/19at 21:47; Start 09/25/19 at 22:00; Stop 09/25/19 at 22:01; Status DC Potassium Acetate 40 meq/Magnesium Sulfate 5 meq/ Multivitamins 10 ml/Chromium/ Copper/Manganese/ Seleni/Zn 1 ml/ Insulin Human Regular 30 unit/ Total Parenteral Nutrition/Amino Acids/Dextrose/ Fat Emulsion Intravenous 1,920 ml @ 80 mls/hr TPN CONT IV Last administered on 09/26/19at 22:28; Start 09/26/19 at 22:00; Stop 09/27/19 at 21:59; Status DC Sodium Chloride 500 ml @ 500 mls/hr 1X ONCE IV Last administered on 09/27/19at 06:39; Start 09/27/19 at 06:45; Stop 09/27/19 at 07:44; Status DC Potassium Acetate 40 meq/Magnesium Sulfate 5 meq/ Multivitamins 10 ml/Chromium/ Copper/Manganese/ Seleni/Zn 1 ml/ Insulin Human Regular 30 unit/ Total Parenteral Nutrition/Amino Acids/Dextrose/ Fat Emulsion Intravenous 1,920 ml @ 80 mls/hr TPN CONT IV Last administered on 09/27/19at 22:03; Start 09/27/19 at 22:00; Stop 09/28/19 at 21:59; Status DC Metoprolol Tartrate (Lopressor Vial) 5 mg PRN Q6HRS PRN IVP HYPERTENSION Last administered on 11/05/19at 17:50; Start 09/28/19 at 09:00 Potassium Acetate 40 meq/Magnesium Sulfate 5 meq/ Multivitamins 10 ml/Chromium/ Copper/Manganese/ Seleni/Zn 1 ml/ Insulin Human Regular 30 unit/ Total Parenteral Nutrition/Amino Acids/Dextrose/ Fat Emulsion Intravenous 1,920 ml @ 80 mls/hr TPN CONT IV Last administered on 09/28/19at 21:26; Start 09/28/19 at 22:00; Stop 09/29/19 at 21:59; Status DC Potassium Acetate 40 meq/Magnesium Sulfate 5 meq/ Multivitamins 10 ml/Chromium/ Copper/Manganese/ Seleni/Zn 1 ml/ Insulin Human Regular 30 unit/ Total Parenteral Nutrition/Amino Acids/Dextrose/ Fat Emulsion Intravenous 1,920 ml @ 80 mls/hr TPN CONT IV Last administered on 09/29/19at 23:23; Start 09/29/19 at 22:00; Stop 09/30/19 at 21:59; Status DC Potassium Acetate 40 meq/Magnesium Sulfate 5 meq/ Multivitamins 10 ml/Chromium/ Copper/Manganese/ Seleni/Zn 1 ml/ Insulin Human Regular 30 unit/ Total Parenteral Nutrition/Amino Acids/Dextrose/ Fat Emulsion Intravenous 1,920 ml @ 80 mls/hr TPN CONT IV Last administered on 09/30/19at 21:35; Start 09/30/19 at 22:00; Stop 10/01/19 at 21:59; Status DC Furosemide (Lasix) 20 mg 1X ONCE IVP Last administered on 10/01/19 06:26; Start 10/01/19 at 06:15; Stop 10/01/19 at 06:16; Status DC Methylprednisolone Sodium Succinate (SOLU-Medrol 125MG VIAL) 125 mg 1X ONCE IV Last administered on 10/01/19at 06:26; Start 10/01/19 at 06:15; Stop 10/01/19 at 06:16; Status DC Albuterol/ Ipratropium (Duoneb) 3 ml Q4HRS NEB Last administered on 11/06/19at 08:37; Start 10/01/19 at 08:00 Fentanyl Citrate 30 ml @ 0 mls/hr CONT PRN IV SEE PROTOCOL Last administered on 10/22/19at 08:03; Start 10/01/19 at 06:00; Stop 10/22/19 at 12:42; Status DC Propofol 100 ml @ 0 mls/hr CONT PRN IV SEE PROTOCOL Last administered on 10/08/19at 23:50; Start 10/01/19 at 06:00 Fentanyl Citrate (Fentanyl 2ml Vial) 25 mcg PRN Q1HR PRN IV SEE COMMENTS Last administered on 11/05/19at 21:08; Start 10/01/19 at 06:00 Fentanyl Citrate (Fentanyl 2ml Vial) 50 mcg PRN Q1HR PRN IV SEE COMMENTS Last administered on 10/30/19at 18:02; Start 10/01/19 at 06:00 Chlorhexidine Gluconate (Peridex) 15 ml BID MM ; Start 10/01/19 at 09:00; Stop 10/01/19 at 07:58; Status DC Potassium Acetate 40 meq/Magnesium Sulfate 5 meq/ Multivitamins 10 ml/Chromium/ Copper/Manganese/ Seleni/Zn 1 ml/ Insulin Human Regular 30 unit/ Total Parent eral Nutrition/Amino Acids/Dextrose/ Fat Emulsion Intravenous 1,920 ml @ 80 mls/hr TPN CONT IV Last administered on 10/01/19at 21:19; Start 10/01/19 at 22:00; Stop 10/02/19 at 21:59; Status DC Acetylcysteine (Mucomyst 20% Resp Treatment) 600 mg BID NEB Last administered on 10/07/19at 09:33; Start 10/01/19 at 21:00; Stop 10/07/19 at 10:39; Status DC Magnesium Sulfate 100 ml @ 25 mls/hr 1X ONCE IV Last administered on 10/01/19at 15:48; Start 10/01/19 at 15:45; Stop 10/01/19 at 19:44; Status DC Potassium Acetate 40 meq/Magnesium Sulfate 5 meq/ Multivitamins 10 ml/Chromium/ Copper/Manganese/ Seleni/Zn 1 ml/ Insulin Human Regular 30 unit/ Total Parenteral Nutrition/Amino Acids/Dextrose/ Fat Emulsion Intravenous 1,920 ml @ 80 mls/hr TPN CONT IV Last administered on 10/02/19at 21:35; Start 10/02/19 at 22:00; Stop 10/03/19 at 21:59; Status DC Potassium Chloride/Water 100 ml @ 100 mls/hr Q1H IV Last administered on 10/03/19at 08:31; Start 10/03/19 at 07:00; Stop 10/03/19 at 08:59; Status DC Potassium Acetate 40 meq/Magnesium Sulfate 5 meq/ Multivitamins 10 ml/Chromium/ Copper/Manganese/ Seleni/Zn 1 ml/ Insulin Human Regular 30 unit/ Total Parenteral Nutrition/Amino Acids/Dextrose/ Fat Emulsion Intravenous 1,920 ml @ 80 mls/hr TPN CONT IV Last administered on 10/03/19at 21:54; Start 10/03/19 at 22:00; Stop 10/04/19 at 19:34; Status DC Lidocaine HCl (Buffered Lidocaine 1%) 3 ml STK-MED ONCE .ROUTE ; Start 10/03/19 at 12:14; Stop 10/03/19 at 12:14; Status DC Lidocaine HCl (Buffered Lidocaine 1%) 3 ml 1X ONCE IJ Last administered on 10/03/19at 13:11; Start 10/03/19 at 13:00; Stop 10/03/19 at 13:01; Status DC Magnesium Sulfate 50 ml @ 25 mls/hr 1X ONCE IV ; Start 10/04/19 at 08:15; Stop 10/04/19 at 10:14; Status DC Potassium Acetate 40 meq/Magnesium Sulfate 10 meq/ Multivitamins 10 ml/Chromium/ Copper/Manganese/ Seleni/Zn 1 ml/ Insulin Human Regular 20 unit/ Total Parenteral Nutrition/Amino Acids/Dextrose/ Fat Emulsion Intravenous 1,920 ml @ 80 mls/hr TPN CONT IV Last administered on 10/04/19at 21:32; Start 10/04/19 at 22:00; Stop 10/05/19 at 21:59; Status DC Potassium Chloride/Water 100 ml @ 100 mls/hr Q1H IV Last administered on 10/05/19at 09:12; Start 10/05/19 at 08:00; Stop 10/05/19 at 09:59; Status DC Alteplase, Recombinant (Cathflo For Central Catheter Clearance) 4 mg 1X ONCE INT CAT ; Start 10/05/19 at 09:15; Stop 10/05/19 at 09:16; Status UNV Alteplase, Recombinant (Cathflo For Central Catheter Clearance) 4 mg 1X ONCE INT CAT ; Start 10/05/19 at 09:15; Stop 10/05/19 at 09:16; Status UNV Alteplase, Recombinant (Cathflo For Central Catheter Clearance) 4 mg 1X ONCE INT CAT ; Start 10/05/19 at 09:15; Stop 10/05/19 at 09:16; Status UNV Alteplase, Recombinant 4 mg/ Sodium Chloride 20 ml @ 20 mls/hr 1X ONCE IV Last administered on 10/05/19at 10:10; Start 10/05/19 at 10:00; Stop 10/05/19 at 10:59; Status DC Alteplase, Recombinant 4 mg/ Sodium Chloride 20 ml @ 20 mls/hr 1X ONCE IV Last administered on 10/05/19at 10:09; Start 10/05/19 at 10:00; Stop 10/05/19 at 10:59; Status DC Alteplase, Recombinant 4 mg/ Sodium Chloride 20 ml @ 20 mls/hr 1X ONCE IV Last administered on 10/05/19at 10:09; Start 10/05/19 at 10:00; Stop 10/05/19 at 10:59; Status DC Potassium Acetate 60 meq/Magnesium Sulfate 10 meq/ Multivitamins 10 ml/Chromium/ Copper/Manganese/ Seleni/Zn 1 ml/ Insulin Human Regular 20 unit/ Total Parenteral Nutrition/Amino Acids/Dextrose/ Fat Emulsion Intravenous 1,920 ml @ 80 mls/hr TPN CONT IV Last administered on 10/05/19at 21:55; Start 10/05/19 at 22:00; Stop 10/06/19 at 21:59; Status DC Albumin Human 500 ml @ 125 mls/hr 1X ONCE IV Last administered on 10/06/19at 12:01; Start 10/06/19 at 11:15; Stop 10/06/19 at 15:14; Status DC Sodium Chloride 500 ml @ 500 mls/hr 1X ONCE IV Last administered on 10/06/19at 13:50; Start 10/06/19 at 11:15; Stop 10/06/19 at 12:14; Status DC Potassium Acetate 60 meq/Magnesium Sulfate 14 meq/ Multivitamins 10 ml/Chromium/ Copper/Manganese/ Seleni/Zn 1 ml/ Insulin Human Regular 20 unit/ Total Parenteral Nutrition/Amino Acids/Dextrose/ Fat Emulsion Intravenous 1,920 ml @ 80 mls/hr TPN CONT IV Last administered on 10/06/19at 22:26; Start 10/06/19 at 22:00; Stop 10/07/19 at 21:59; Status DC Ciprofloxacin/ Dextrose 200 ml @ 200 mls/hr Q12HR IV Last administered on 10/13/19at 08:27; Start 10/06/19 at 21:00; Stop 10/13/19 at 08:56; Status DC Albumin Human 250 ml @ 62.5 mls/hr 1X ONCE IV Last administered on 10/07/19at 11:09; Start 10/07/19 at 11:00; Stop 10/07/19 at 14:59; Status DC Furosemide (Lasix) 20 mg 1X ONCE IVP Last administered on 10/07/19at 14:52; St art 10/07/19 at 10:45; Stop 10/07/19 at 10:49; Status DC Potassium Acetate 60 meq/Magnesium Sulfate 14 meq/ Multivitamins 10 ml/Chromium/ Copper/Manganese/ Seleni/Zn 1 ml/ Insulin Human Regular 15 unit/ Total Parenteral Nutrition/Amino Acids/Dextrose/ Fat Emulsion Intravenous 1,920 ml @ 80 mls/hr TPN CONT IV Last administered on 10/07/19at 22:08; Start 10/07/19 at 22:00; Stop 10/08/19 at 21:59; Status DC Potassium Acetate 60 meq/Magnesium Sulfate 14 meq/ Multivitamins 10 ml/Chromium/ Copper/Manganese/ Seleni/Zn 1 ml/ Insulin Human Regular 15 unit/ Total Parenteral Nutrition/Amino Acids/Dextrose/ Fat Emulsion Intravenous 1,920 ml @ 80 mls/hr TPN CONT IV Last administered on 10/08/19at 22:12; Start 10/08/19 at 22:00; Stop 10/09/19 at 21:59; Status DC Potassium Acetate 60 meq/Magnesium Sulfate 14 meq/ Multivitamins 10 ml/Chromium/ Copper/Manganese/ Seleni/Zn 1 ml/ Insulin Human Regular 15 unit/ Total Parenteral Nutrition/Amino Acids/Dextrose/ Fat Emulsion Intravenous 1,920 ml @ 80 mls/hr TPN CONT IV Last administered on 10/09/19at 22:22; Start 10/09/19 at 22:00; Stop 10/10/19 at 21:59; Status DC Furosemide (Lasix) 20 mg 1X ONCE IVP Last administered on 10/10/19at 11:07; Start 10/10/19 at 10:30; Stop 10/10/19 at 10:34; Status DC Potassium Acetate 60 meq/Magnesium Sulfate 14 meq/ Multivitamins 10 ml/Chromium/ Copper/Manganese/ Seleni/Zn 1 ml/ Insulin Human Regular 15 unit/ Sodium Chloride 20 meq/Total Parenteral Nutrition/Amino Acids/Dextrose/ Fat Emulsion Intravenous 1,920 ml @ 80 mls/hr TPN CONT IV Last administered on 10/10/19at 21:54; Start 10/10/19 at 22:00; Stop 10/11/19 at 21:59; Status DC Potassium Acetate 30 meq/Magnesium Sulfate 14 meq/ Multivitamins 10 ml/Chromium/ Copper/Manganese/ Seleni/Zn 1 ml/ Insulin Human Regular 15 unit/ Sodium Chloride 20 meq/Potassium Chloride 30 meq/ Total Parenteral Nutrition/Amino Acids/Dextrose/ Fat Emulsion Intravenous 1,920 ml @ 80 mls/hr TPN CONT IV Last administered on 10/11/19at 21:46; Start 10/11/19 at 22:00; Stop 10/12/19 at 21:59; Status DC Sodium Chloride 80 meq/Potassium Chloride 30 meq/ Potassium Acetate 30 meq/Magnesium Sulfate 14 meq/ Multivitamins 10 ml/Chromium/ Copper/Manganese/ Seleni/Zn 1 ml/ Insulin Human Regular 15 unit/ Total Parenteral Nutrition/Amino Acids/Dextrose/ Fat Emulsion Intravenous 1,920 ml @ 80 mls/hr TPN CONT IV Last administered on 10/12/19at 22:33; Start 10/12/19 at 22:00; Stop 10/13/19 at 21:59; Status DC Furosemide (Lasix) 40 mg 1X ONCE IVP Last administered on 10/12/19at 16:27; Start 10/12/19 at 15:30; Stop 10/12/19 at 15:33; Status DC Albumin Human 250 ml @ 62.5 mls/hr 1X ONCE IV Last administered on 10/12/19at 16:27; Start 10/12/19 at 15:30; Stop 10/12/19 at 19:29; Status DC Sodium Chloride 80 meq/Potassium Chloride 30 meq/ Potassium Acetate 30 meq/Magnesium Sulfate 14 meq/ Multivitamins 10 ml/Chromium/ Copper/Manganese/ Seleni/Zn 1 ml/ Insulin Human Regular 15 unit/ Total Parenteral Nutrition/Amino Acids/Dextrose/ Fat Emulsion Intravenous 1,920 ml @ 80 mls/hr TPN CONT IV Last administered on 10/13/19at 22:25; Start 10/13/19 at 22:00; Stop 10/14/19 at 21:59; Status DC Sodium Chloride 80 meq/Potassium Chloride 30 meq/ Potassium Acetate 30 meq/Magnesium Sulfate 14 meq/ Multivitamins 10 ml/Chromium/ Copper/Manganese/ Seleni/Zn 1 ml/ Insulin Human Regular 15 unit/ Total Parenteral Nutrition/Amino Acids/Dextrose/ Fat Emulsion Intravenous 1,920 ml @ 80 mls/hr TPN CONT IV Last administered on 10/14/19at 21:32; Start 10/14/19 at 22:00; Stop 10/15/19 at 21:59; Status DC Sodium Chloride 80 meq/Potassium Chloride 30 meq/ Potassium Acetate 30 meq/Magnesium Sulfate 14 meq/ Multivitamins 10 ml/Chromium/ Copper/Manganese/ Seleni/Zn 1 ml/ Insulin Human Regular 15 unit/ Total Parenteral Nutrition/Amino Acids/Dextrose/ Fat Emulsion Intravenous 1,920 ml @ 80 mls/hr TPN CONT IV L ast administered on 10/15/19at 21:53; Start 10/15/19 at 22:00; Stop 10/16/19 at 21:59; Status DC Acetylcysteine (Mucomyst 20% Resp Treatment) 600 mg RTBID NEB Last administered on 11/06/19at 08:41; Start 10/15/19 at 12:00 Sodium Chloride 80 meq/Potassium Chloride 30 meq/ Potassium Acetate 30 meq/Magnesium Sulfate 14 meq/ Multivitamins 10 ml/Chromium/ Copper/Manganese/ Seleni/Zn 1 ml/ Insulin Human Regular 15 unit/ Total Parenteral Nutrition/Amino Acids/Dextrose/ Fat Emulsion Intravenous 1,920 ml @ 80 mls/hr TPN CONT IV Last administered on 10/16/19at 22:06; Start 10/16/19 at 22:00; Stop 10/17/19 at 21:59; Status DC Meropenem 500 mg/ Sodium Chloride 50 ml @ 100 mls/hr Q6HRS IV Last administered on 11/06/19at 08:23; Start 10/16/19 at 18:00 Daptomycin 500 mg/ Sodium Chloride 50 ml @ 100 mls/hr Q24H IV Last administered on 10/24/19at 21:47; Start 10/16/19 at 19:00; Stop 10/25/19 at 08:13; Status DC Sodium Chloride 80 meq/Potassium Chloride 30 meq/ Potassium Acetate 30 meq/Magnesium Sulfate 14 meq/ Multivitamins 10 ml/Chromium/ Copper/Manganese/ Seleni/Zn 1 ml/ Insulin Human Regular 15 unit/ Total Parenteral Nutrition/Amino Acids/Dextrose/ Fat Emulsion Intravenous 1,920 ml @ 80 mls/hr TPN CONT IV Last administered on 10/17/19at 22:09; Start 10/17/19 at 22:00; Stop 10/18/19 at 21:59; Status DC Heparin Sodium (Porcine) 1000 unit/Sodium Chloride 1,001 ml @ 1,001 mls/hr 1X ONCE IRR ; Start 10/18/19 at 06:00; Stop 10/18/19 at 06:59; Status DC Propofol (Diprivan) 200 mg STK-MED ONCE IV ; Start 10/18/19 at 07:44; Stop 10/18/19 at 07:44; Status DC Lidocaine HCl (Lidocaine Pf 2% Vial) 5 ml STK-MED ONCE .ROUTE ; Start 10/18/19 at 07:44; Stop 10/18/19 at 07:44; Status DC Fentanyl Citrate (Fentanyl 2ml Vial) 100 mcg STK-MED ONCE .ROUTE ; Start 10/18/19 at 07:44; Stop 10/18/19 at 07:44; Status DC Rocuronium Ringling (Zemuron) 100 mg STK-MED ONCE .ROUTE ; Start 10/18/19 at 07:44; Stop 10/18/19 at 07:44; Status DC Micafungin Sodium 100 mg/Dextrose 100 ml @ 100 mls/hr Q24H IV Last administered on 11/06/19at 08:24; Start 10/18/19 at 08:30 Bupivacaine HCl/ Epinephrine Bitart (Sensorcain-Epi 0.5%-1:[id number] Mpf) 30 ml STK-MED ONCE .ROUTE ; Start 10/18/19 at 08:34; Stop 10/18/19 at 08:35; Status DC Iohexol (Omnipaque 300 Mg/ml) 50 ml STK-MED ONCE .ROUTE Last administered on 10/18/19at 13:30; Start 10/18/19 at 08:35; Stop 10/18/19 at 08:35; Status DC Sodium Chloride 80 meq/Potassium Chloride 30 meq/ Potassium Acetate 30 meq/Magnesium Sulfate 14 meq/ Multivitamins 10 ml/Chromium/ Copper/Manganese/ Seleni/Zn 1 ml/ Insulin Human Regular 15 unit/ Total Parenteral Nutrition/Amino Acids/Dextrose/ Fat Emulsion Intravenous 1,920 ml @ 80 mls/hr TPN CONT IV L ast administered on 10/19/19at 01:22; Start 10/18/19 at 22:00; Stop 10/19/19 at 21:59; Status DC Phenylephrine HCl (Brayden-Synephrine Inj) 10 mg STK-MED ONCE .ROUTE ; Start 10/18/19 at 10:15; Stop 10/18/19 at 10:15; Status DC Desflurane (Suprane) 90 ml STK-MED ONCE IH ; Start 10/18/19 at 10:18; Stop 10/18/19 at 10:19; Status DC Albumin Human 500 ml @ As Directed STK-MED ONCE IV ; Start 10/18/19 at 11:06; Stop 10/18/19 at 11:06; Status DC Vasopressin (Vasostrict) 20 unit STK-MED ONCE .ROUTE ; Start 10/18/19 at 12:23; Stop 10/18/19 at 12:23; Status DC Phenylephrine HCl (Brayden-Synephrine Inj) 10 mg STK-MED ONCE .ROUTE ; Start 10/18/19 at 13:33; Stop 10/18/19 at 13:33; Status DC Phenylephrine HCl (Brayden-Synephrine Inj) 10 mg STK-MED ONCE .ROUTE ; Start 10/18/19 at 13:33; Stop 10/18/19 at 13:33; Status DC Ondansetron HCl (Zofran) 4 mg STK-MED ONCE .ROUTE ; Start 10/18/19 at 13:33; Stop 10/18/19 at 13:33; Status DC Enoxaparin Sodium (Lovenox 40mg Syringe) 40 mg Q24H SQ Last administered on 11/06/19at 08:23; Start 10/19/19 at 08:00 Sodium Chloride (Normal Saline Flush) 3 ml QSHIFT PRN IV AFTER MEDS AND BLOOD DRAWS; Start 10/18/19 at 14:45 Naloxone HCl (Narcan) 0.4 mg PRN Q2MIN PRN IV SEE INSTRUCTIONS; Start 10/18/19 at 14:45 Sodium Chloride 1,000 ml @ 25 mls/hr Q24H IV Last administered on 11/05/19at 14:33; Start 10/18/19 at 14:33 Morphine Sulfate (Morphine Sulfate) 1 mg PRN Q1HR PRN IV PAIN; Start 10/18/19 at 14:45 Midazolam HCl 100 mg/Sodium Chloride 100 ml @ 1 mls/hr CONT PRN IV SEE I/O RECORD Last administered on 10/21/19at 18:48; Start 10/18/19 at 14:45 Phenylephrine HCl (PHENYLEPHRINE in 0.9% NACL PF) 1 mg STK-MED ONCE IV ; Start 10/18/19 at 14:44; Stop 10/18/19 at 14:45; Status DC Ephedrine Sulfate (ePHEDrine PF IN SALINE SYRINGE) 50 mg STK-MED ONCE IV ; Star t 10/18/19 at 14:45; Stop 10/18/19 at 14:45; Status DC Vasopressin 20 unit/Dextrose 101 ml @ 12 mls/hr CONT PRN IV SEE I/O RECORD Last administered on 10/25/19at 04:17; Start 10/18/19 at 15:30 Sodium Chloride 1,000 ml @ 1,000 mls/hr 1X ONCE IV Last administered on 10/18/19at 15:42; Start 10/18/19 at 15:45; Stop 10/18/19 at 16:44; Status DC Albumin Human 500 ml @ 125 mls/hr 1X ONCE IV ; Start 10/18/19 at 16:00; Stop 10/18/19 at 19:59; Status DC Albumin Human 500 ml @ 125 mls/hr PRN Q1HR PRN IV PER PROTOCOL; Start 10/18/19 at 15:45 Magnesium Sulfate 50 ml @ 25 mls/hr 1X ONCE IV Last administered on 10/18/19at 17:02; Start 10/18/19 at 16:30; Stop 10/18/19 at 18:29; Status DC Sodium Bicarbonate (Sodium Bicarb Adult 8.4% Syr) 50 meq STK-MED ONCE .ROUTE ; Start 10/18/19 at 16:20; Stop 10/18/19 at 16:20; Status DC Sodium Bicarbonate (Sodium Bicarb Adult 8.4% Syr) 100 meq 1X ONCE IV Last administered on 10/18/19at 17:07; Start 10/18/19 at 16:30; Stop 10/18/19 at 16:31; Status DC Sodium Bicarbonate 150 meq/Dextrose 1,150 ml @ 75 mls/hr 1X ONCE IV Last administered on 10/18/19at 20:02; Start 10/18/19 at 16:30; Stop 10/19/19 at 07:49; Status DC Sodium Chloride 80 meq/Potassium Chloride 30 meq/ Potassium Acetate 30 meq/Magnesium Sulfate 14 meq/ Multivitamins 10 ml/Chromium/ Copper/Manganese/ Seleni/Zn 1 ml/ Insulin Human Regular 15 unit/ Total Parenteral Nutrition/Amino Acids/Dextrose/ Fat Emulsion Intravenous 1,920 ml @ 80 mls/hr TPN CONT IV Last administered on 10/19/19at 23:05; Start 10/19/19 at 22:00; Stop 10/20/19 at 21:59; Status DC Sodium Chloride 100 meq/Potassium Chloride 30 meq/ Potassium Acetate 30 meq/Magnesium Sulfate 12 meq/ Multivitamins 10 ml/Chromium/ Copper/Manganese/ Seleni/Zn 1 ml/ Insulin Human Regular 15 unit/ Total Parenteral Nutrition/Amino Acids/Dextrose/ Fat Emulsion Intravenous 1,920 ml @ 80 mls/hr TPN CONT IV Last administered on 10/20/19at 21:52; Start 10/20/19 at 22:00; Stop 10/21/19 at 21:59; Status DC Sodium Chloride 100 meq/Potassium Chloride 30 meq/ Potassium Acetate 30 meq/Ma gnesium Sulfate 12 meq/ Multivitamins 10 ml/Chromium/ Copper/Manganese/ Seleni/Zn 1 ml/ Insulin Human Regular 15 unit/ Total Parenteral Nutrition/Amino Acids/Dextrose/ Fat Emulsion Intravenous 1,920 ml @ 80 mls/hr TPN CONT IV Last administered on 10/21/19at 21:46; Start 10/21/19 at 22:00; Stop 10/22/19 at 21:59; Status DC Sodium Chloride 100 meq/Potassium Chloride 30 meq/ Potassium Acetate 30 meq/Magnesium Sulfate 12 meq/ Multivitamins 10 ml/Chromium/ Copper/Manganese/ Seleni/Zn 1 ml/ Insulin Human Regular 15 unit/ Total Parenteral Nutrition/Amino Acids/Dextrose/ Fat Emulsion Intravenous 1,800 ml @ 75 mls/hr TPN CONT IV Last administered on 10/22/19at 22:04; Start 10/22/19 at 22:00; Stop 10/23/19 at 21:59; Status DC Fentanyl Citrate 55 ml @ 0 mls/hr CONT PRN IV SEE COMMENTS Last administered on 10/24/19at 23:55; Start 10/22/19 at 13:00; Stop 10/27/19 at 17:28; Status DC Sodium Chloride 100 meq/Potassium Chloride 30 meq/ Potassium Acetate 30 meq/Magnesium Sulfate 12 meq/ Multivitamins 10 ml/Chromium/ Copper/Manganese/ Seleni/Zn 1 ml/ Insulin Human Regular 15 unit/ Total Parenteral Nutrition/Amino Acids/Dextrose/ Fat Emulsion Intravenous 1,680 ml @ 70 mls/hr TPN CONT IV Last administered on 10/23/19at 21:23; Start 10/23/19 at 22:00; Stop 10/24/19 at 21:59; Status DC Sodium Chloride 110 meq/Potassium Chloride 30 meq/ Potassium Acetate 30 meq/Magnesium Sulfate 15 meq/ Multivitamins 10 ml/Chromium/ Copper/Manganese/ Seleni/Zn 1 ml/ Insulin Human Regular 15 unit/ Total Parenteral Nutrition/Amino Acids/Dextrose/ Fat Emulsion Intravenous 1,680 ml @ 70 mls/hr TPN CONT IV Last administered on 10/24/19at 21:48; Start 10/24/19 at 22:00; Stop 10/25/19 at 21:59; Status DC Sodium Chloride 110 meq/Potassium Chloride 30 meq/ Potassium Acetate 30 meq/Magnesium Sulfate 15 meq/ Multivitamins 10 ml/Chromium/ Copper/Manganese/ Seleni/Zn 1 ml/ Insulin Human Regular 15 unit/ Total Parenteral Nutrition/Amino Acids/Dextrose/ Fat Emulsion Intravenous 1,680 ml @ 70 mls/hr TPN CONT IV Last administered on 10/25/19at 21:33; Start 10/25/19 at 22:00; Stop 10/26/19 at 21:59; Status DC Sodium Chloride 110 meq/Potassium Chloride 30 meq/ Potassium Acetate 30 meq/Magnesium Sulfate 15 meq/ Multivitamins 10 ml/Chromium/ Copper/Manganese/ Seleni/Zn 1 ml/ Insulin Human Regular 15 unit/ Total Parenteral Nutrition/Amino Acids/Dextrose/ Fat Emulsion Intravenous 1,680 ml @ 70 mls/hr TPN CONT IV Last administered on 10/26/19at 21:51; Start 10/26/19 at 22:00; Stop 10/27/19 at 21:59; Status DC Sodium Chloride 90 meq/Potassium Chloride 30 meq/ Potassium Acetate 30 meq/Magnesium Sulfate 15 meq/ Multivitamins 10 ml/Chromium/ Copper/Manganese/ Seleni/Zn 1 ml/ Insulin Human Regular 15 unit/ Total Parenteral Nutrition/Amino Acids/Dextrose/ Fat Emulsion Intravenous 1,680 ml @ 70 mls/hr TPN CONT IV Last administered on 10/27/19at 22:38; Start 10/27/19 at 22:00; Stop 10/28/19 at 21:59; Status DC Fentanyl Citrate 30 ml @ 0 mls/hr CONT PRN IV SEE I/O RECORD; Start 10/27/19 at 17:30 Fentanyl (Duragesic 12mcg/ Hr Patch) 1 patch Q3DAYS TD Last administered on 11/06/19at 09:00; Start 10/28/19 at 09:00 Sodium Chloride 90 meq/Potassium Chloride 30 meq/ Potassium Acetate 30 meq/Magnesium Sulfate 15 meq/ Multivitamins 10 ml/Chromium/ Copper/Manganese/ Seleni/Zn 1 ml/ Insulin Human Regular 15 unit/ Total Parenteral Nutrition/Amino Acids/Dextrose/ Fat Emulsion Intravenous 1,680 ml @ 70 mls/hr TPN CONT IV Last administered on 10/28/19at 21:59; Start 10/28/19 at 22:00; Stop 10/29/19 at 21:59; Status DC Sodium Chloride 90 meq/Potassium Chloride 30 meq/ Potassium Acetate 30 meq/Magnesium Sulfate 15 meq/ Multivitamins 10 ml/Chromium/ Copper/Manganese/ Seleni/Zn 1 ml/ Insulin Human Regular 15 unit/ Total Parenteral Nutrition/Amino Acids/Dextrose/ Fat Emulsion Intravenous 1,680 ml @ 70 mls/hr TPN CONT IV Last administered on 10/29/19at 21:35; Start 10/29/19 at 22:00; Stop 10/30/19 at 21:59; Status DC Vancomycin HCl (Vanco Per Pharmacy) 1 each PRN DAILY PRN MC SEE COMMENTS Last administered on 11/01/19at 02:46; Start 10/30/19 at 09:15; Stop 11/02/19 at 07:41; Status DC Ciprofloxacin/ Dextrose 200 ml @ 200 mls/hr Q12HR IV Last administered on 11/06/19at 08:24; Start 10/30/19 at 10:00 Vancomycin HCl 2 gm/Sodium Chloride 500 ml @ 250 mls/hr 1X ONCE IV Last administered on 10/30/19at 10:34; Start 10/30/19 at 10:00; Stop 10/30/19 at 11:59; Status DC Sodium Chloride 90 meq/Potassium Chloride 30 meq/ Potassium Acetate 30 meq/Magnesium Sulfate 15 meq/ Multivitamins 10 ml/Chromium/ Copper/Manganese/ Seleni/Zn 1 ml/ Insulin Human Regular 15 unit/ Total Parenteral Nutrition/Amino Acids/Dextrose/ Fat Emulsion Intravenous 1,680 ml @ 70 mls/hr TPN CONT IV Last administered on 10/30/19at 22:02; Start 10/30/19 at 22:00; Stop 10/31/19 at 21:59; Status DC Diphenhydramine HCl (Benadryl) 25 mg 1X ONCE IVP Last administered on 10/30/19at 14:26; Start 10/30/19 at 14:30; Stop 10/30/19 at 14:31; Status DC Vancomycin HCl 1.5 gm/Sodium Chloride 500 ml @ 250 mls/hr Q8H IV Last adminis tered on 10/31/19at 03:08; Start 10/30/19 at 18:30; Stop 10/31/19 at 12:24; Status DC Vancomycin HCl (Vancomycin Trough Level) 1 each 1X ONCE MC Last administered on 10/31/19at 10:00; Start 10/31/19 at 10:00; Stop 10/31/19 at 10:01; Status DC Sodium Chloride 90 meq/Potassium Chloride 30 meq/ Potassium Acetate 30 meq/Magnesium Sulfate 15 meq/ Multivitamins 10 ml/Chromium/ Copper/Manganese/ Seleni/Zn 1 ml/ Insulin Human Regular 15 unit/ Total Parenteral Nutrition/Amino Acids/Dextrose/ Fat Emulsion Intravenous 1,680 ml @ 70 mls/hr TPN CONT IV Last administered on 10/31/19at 22:13; Start 10/31/19 at 22:00; Stop 11/01/19 at 21:59; Status DC Vancomycin HCl (Vancomycin Random Level) 1 each 1X ONCE MC Last administered on 11/01/19at 01:00; Start 11/01/19 at 01:00; Stop 11/01/19 at 01:01; Status DC Vancomycin HCl 1.5 gm/Sodium Chloride 500 ml @ 250 mls/hr Q12H IV Last administered on 11/01/19at 22:07; Start 11/01/19 at 10:00; Stop 11/02/19 at 07:41; Status DC Vancomycin HCl (Vancomycin Trough Level) 1 each 1X ONCE MC ; Start 11/02/19 at 09:30; Stop 11/02/19 at 09:31; Status Cancel Sodium Chloride 90 meq/Potassium Chloride 30 meq/ Potassium Acetate 30 meq/Magnesium Sulfate 15 meq/ Multivitamins 10 ml/Chromium/ Copper/Manganese/ Seleni/Zn 1 ml/ Insulin Human Regular 15 unit/ Total Parenteral Nutrition/Amino Acids/Dextrose/ Fat Emulsion Intravenous 1,680 ml @ 70 mls/hr TPN CONT IV [facility] administered on 11/01/19at 22:08; Start 11/01/19 at 22:00; Stop 11/02/19 at 21:59; Status DC Alteplase, Recombinant (Cathflo For Central Catheter Clearance) 1 mg 1X ONCE INT CAT Last administered on 11/01/19at 11:49; Start 11/01/19 at 11:00; Stop 11/01/19 at 11:01; Status DC Daptomycin 500 mg/ Sodium Chloride 50 ml @ 100 mls/hr Q24H IV Last administered on 11/06/19at 09:27; Start 11/02/19 at 09:00 Sodium Chloride 90 meq/Potassium Chloride 30 meq/ Potassium Acetate 30 meq/Magnesium Sulfate 15 meq/ Multivitamins 10 ml/Chromium/ Copper/Manganese/ Seleni/Zn 1 ml/ Insulin Human Regular 15 unit/ Total Parenteral Nutrition/Amino Acids/Dextrose/ Fat Emulsion Intravenous 1,680 ml @ 70 mls/hr TPN CONT IV Last administered on 11/02/19at 22:55; Start 11/02/19 at 22:00; Stop 11/03/19 at 21:59; Status DC Sodium Chloride 90 meq/Potassium Chloride 30 meq/ Potassium Acetate 30 meq/Magnesium Sulfate 15 meq/ Multivitamins 10 ml/Chromium/ Copper/Manganese/ Seleni/Zn 1 ml/ Insulin Human Regular 15 unit/ Total Parenteral Nutrition/Amino Acids/Dextrose/ Fat Emulsion Intravenous 1,680 ml @ 70 mls/hr TPN CONT IV Last administered on 11/03/19at 22:06; Start 11/03/19 at 22:00; Stop 11/04/19 at 21:59; Status DC Diphenhydramine HCl (Benadryl) 50 mg STK-MED ONCE .ROUTE ; Start 11/03/19 at 18:34; Stop 11/03/19 at 18:35; Status DC Diphenhydramine HCl (Benadryl) 25 mg 1X ONCE IM ; Start 11/03/19 at 18:45; Stop 11/03/19 at 18:46; Status DC Diphenhydramine HCl (Benadryl) 25 mg 1X ONCE IVP Last administered on 11/03/19at 18:56; Start 11/03/19 at 19:00; Stop 11/03/19 at 19:01; Status DC Alprazolam (Xanax) 0.5 mg PRN TID PRN PO ANXIETY / AGITATION Last administered on 11/06/19at 02:58; Start 11/04/19 at 08:00 Sodium Chloride 110 meq/Potassium Chloride 30 meq/ Potassium Acetate 30 me q/Magnesium Sulfate 15 meq/ Multivitamins 10 ml/Chromium/ Copper/Manganese/ Seleni/Zn 1 ml/ Insulin Human Regular 15 unit/ Total Parenteral Nutrition/Amino Acids/Dextrose/ Fat Emulsion Intravenous 1,680 ml @ 70 mls/hr TPN CONT IV Last administered on 11/04/19at 21:21; Start 11/04/19 at 22:00; Stop 11/05/19 at 21:59; Status DC Sodium Chloride 110 meq/Potassium Chloride 30 meq/ Potassium Acetate 30 meq/Magnesium Sulfate 15 meq/ Multivitamins 10 ml/Chromium/ Copper/Manganese/ Seleni/Zn 1 ml/ Insulin Human Regular 15 unit/ Total Parenteral Nutrition/Amino Acids/Dextrose/ Fat Emulsion Intravenous 1,680 ml @ 70 mls/hr TPN CONT IV [facility] administered on 11/05/19at 22:01; Start 11/05/19 at 22:00; Stop 11/06/19 at 21:59 Alteplase, Recombinant (Cathflo For Central Catheter Clearance) 1 mg 1X ONCE INT CAT Last administered on 11/06/19at 08:23; Start 11/06/19 at 08:15; Stop 11/06/19 at 08:16; Status DC Sodium Chloride 110 meq/Sodium Phosphate 10 mmol/ Potassium Chloride 30 meq/ Potassium Acetate 30 meq/Magnesium Sulfate 15 meq/ Multivitamins 10 ml/Chromium/ Copper/Manganese/ Seleni/Zn 1 ml/ Insulin Human Regular 15 unit/ Total Parenteral Nutrition/Amino Acids/Dextrose/ Fat Emulsion Intravenous 1,680 ml @ 70 mls/hr TPN CONT IV ; Start 11/06/19 at 22:00; Stop 11/07/19 at 21:59 Active Scripts Active Reported Bisoprolol Fumarate 5 Mg Tablet 10 Mg PO DAILY Vitals/I & O Vital Sign - Last 24 Hours 11/05/19 11/05/19 11/05/19 11/05/19 11:00 12:00 12:00 12:14 Temp 99.0 99.0 Pulse 120 120 Resp 24 24 B/P (MAP) 160/98 (118) 159/100 (119) Pulse Ox 97 99 98 O2 Delivery Tracheal Collar Trach Collar Tracheal Collar Tracheal Collar O2 Flow Rate 8.0 8.0 11/05/19 11/05/19 11/05/19 11/05/19 13:00 13:59 14:00 14:29 Pulse 120 128 Resp 24 25 24 B/P (MAP) 165/98 (120) 157/94 (115) Pulse Ox 97 98 97 98 O2 Delivery Tracheal Collar Tracheal Collar Tracheal Collar O2 Flow Rate 8.0 8.0 7/18/20 7/18/20 7/18/20 7/18/20 15:00 16:00 16:00 16:03 Temp 98.4 98.4 Pulse 128 126 Resp 24 24 B/P (MAP) 175/101 (125) 151/97 (115) Pulse Ox 97 99 100 O2 Delivery Tracheal Collar Tracheal Collar Trach Collar Tracheal Collar O2 Flow Rate 8.0 8.0 18/20 /18/20 7/18/20 18/20 17:00 17:50 18:00 19:00 Pulse 134 133 110 121 Resp 24 24 26 B/P (MAP) 161/98 152/95 (114) 130/55 (80) Pulse Ox 97 97 97 O2 Delivery Tracheal Collar Tracheal Collar Tracheal Collar 11/05/1911/04/20 11/04/20 11/04/20 20:00 20:00 20:00 20:25 Temp 99.8 99.8 Pulse 129 Resp 31 B/P (MAP) 168/93 (118) Pulse Ox 98 95 O2 Delivery Trach Collar Tracheal Collar Tracheal Collar O2 Flow Rate 8.0 8.0 20 18/20 /18/20 11/04/20 21:00 21:08 21:38 22:00 Temp 100.9 100.9 Pulse 126 123 Resp 28 37 31 28 B/P (MAP) 139/80 (99) 115/79 (91) Pulse Ox 99 94 97 99 O2 Delivery Tracheal Collar Tracheal Collar Tracheal Collar Tracheal Collar 11/05/1918/20 //20 20 23:00 23:00 00:00 00:01 Temp 99.9 99.1 99.9 99.1 Pulse 117 112 Resp 30 23 B/P (MAP) 123/72 (89) 118/69 (85) Pulse Ox 100 100 O2 Delivery Tracheal Collar Trach Collar Tracheal Collar O2 Flow Rate 8.0 11/05/20 11/05/20 //20 11/05/20 00:27 01:00 02:00 03:00 Pulse 110 116 114 Resp 23 28 28 B/P (MAP) 116/74 (88) 136/86 (103) 134/85 (101) Pulse Ox 99 100 96 98 O2 Delivery Tracheal Collar Tracheal Collar Tracheal Collar Tracheal Collar O2 Flow Rate 8.0 20 //20 7/11/06/19 04:00 04:00 04:10 05:00 Temp 97.6 97.6 Pulse 111 103 Resp 26 28 B/P (MAP) 136/85 (102) 142/96 (111) Pulse Ox 100 99 99 O2 Delivery Trach Collar Tracheal Collar Tracheal Collar Tracheal Collar O2 Flow Rate 8.0 8.0 11/06/19 11/06/19 11/06/19 11/06/19 06:00 07:00 08:00 08:00 Temp 98.1 98.1 Pulse 113 116 114 Resp 24 29 26 B/P (MAP) 119/86 (97) 140/94 (109) 128/84 (99) Pulse Ox 100 100 100 O2 Delivery Tracheal Collar Tracheal Collar Trach Collar Tracheal Collar O2 Flow Rate 10.0 10.0 10.0 11/06/19 11/06/19 11/06/19 11/06/19 08:20 09:00 09:00 10:00 Pulse 116 112 Resp 26 24 B/P (MAP) 143/85 (104) 120/80 (93) Pulse Ox 100 100 100 100 O2 Delivery Tracheal Collar Tracheal Collar Tracheal Collar Tracheal Collar O2 Flow Rate 8.0 10.0 10.0 10.0 Intake and Output 11/05/19 11/05/19 11/06/19 14:59 22:59 06:59 Intake Total 2258.2 ml Output Total 1570 ml 1055 ml 1470 ml Balance -1570 ml -1055 ml 788.2 ml Justicifation of Admission Dx: Justifications for Admission: Justification of Admission Dx: Yes ROSS DIAS MD Nov 06, 2019 10:17
[2019-11-06] MEDS: fentaNYL PF VIAL 100 MCG/2 ML VIAL IV PRN ×2 (13:55→20:04)
[2019-11-06] MEDS: IV NORMAL SALINE 1000ML BAG 1,000 ML IV SCH (14:33)
[2019-11-06] MEDS ORDERED: [UNRECOGNIZED DRUG - OTHER] IV SCH ×11 (22:00)
[2019-11-06] MEDS ORDERED: TOTAL PARENTERAL NUTRITION IV SCH ×11 (22:00)
[2019-11-06] MEDS ORDERED: DEXTROSE 70% IV SCH ×11 (22:00)
[2019-11-06] MEDS ORDERED: AMINO ACID IV SCH ×11 (22:00)
[2019-11-07] VITALS (19 sets, daily range): BP systolic 109–159; BP diastolic 65–93
[2019-11-07] MEDS: IPRATRPIUM/ALBUTEROL 0.5/2.5MG 3 ML NEBU. NEB SCH ×7 (00:20→22:42)
[2019-11-07] MEDS: MEROPENEM 500 MG in IV NORMAL SALINE 50ML 50 ML IV SCH ×4 (00:21→18:01)
[2019-11-07] MEDS: INSULIN LISPRO 300 UNITS/3 ML VIAL. SQ SCH ×4 (05:56→18:00)
[2019-11-07 06:27] LABS: CALCIUM 9.4 mg/dL (8.5-10.1); CREATININE 0.6 mg/dL (0.6-1.0); GFR 106.3; POTASSIUM 4.6 mmol/L (3.5-5.1)
[2019-11-07 06:55] LABS: BASO # 0.1 x10^3/uL (0.0-0.2); BASO % 0 % (0-3); EOS # 0.4 x10^3/uL (0.0-0.7); EOS % 2 % (0-3); HEMATOCRIT 24.8 % (36.0-47.0); HEMOGLOBIN 8.1 g/dL (12.0-15.5); LYMPH # 1.9 x10^3/uL (1.0-4.8); LYMPH % 8 % (24-48); MEAN CORPUSCULAR HEMOGLOBIN 28 pg (25-35); MEAN CORPUSCULAR HGB CONC 33 g/dL (31-37); MEAN CORPUSCULAR VOLUME 86 fL (79-100); MONO # 1.5 x10^3/uL (0.0-1.1); MONO % 6 % (0-9); NEUT # 21.4 x10^3/uL (1.8-7.7); NEUT % 85 % (31-73); PLATELET COUNT 688 x10^3/uL (140-400); RED BLOOD COUNT 2.87 x10^6/uL (3.50-5.40); RED CELL DISTRIBUTION WIDTH 15.6 % (11.5-14.5); WHITE BLOOD COUNT 25.3 x10^3/uL (4.0-11.0)
--- NOTE | 2019-11-07 08:29 | PDOC ---
Infectious Disease Note Subjective: Subjective Pt resting quietly fever pattern improved on vent via trach shield TPN Vital Signs: Vital Signs Vital Signs Date Time Temp Pulse Resp B/P (MAP) Pulse Ox O2 Delivery O2 Flow Rate FiO2 11/07/19 06:00 128 28 131/77 (95) 99 Tracheal Collar 11/07/19 04:00 99.8 99.8 11/07/19 04:00 10.0 Physical Exam: PHYSICAL EXAM GENERAL: Propped up in bed, resting quietly HEENT: Pupils equal, oral cavity dry. NGT out, NECK: Tracheostomy LUNGS: Diminished aeration bases, CT on left HEART: S1, S2, regular, tachy 110s ABDOMEN: Distended, bowel sounds hypoactive, soft, goyal x 2, 3 KAYLIN drains, G-J tube and + wound vac : Lind in place EXTREMITIES: Trace generalized edema, no cyanosis. RADHA hose bilaterally, SKIN: warm touch. No signs of rash. NEURO: Did not awaken LUE-PICC without signs of complications Medications: Inpatient Meds: Current Medications Medications (Trade) Dose Ordered Sig/Yvon Start Time Stop Time Status Last Admin Dose Admin Acetaminophen (Tylenol Supp) 650 mg PRN Q6HRS PRN 07/12/19 10:30 11/05/19 21:21 650 MG Acetaminophen (Tylenol) 650 mg PRN Q6HRS PRN 07/09/19 03:36 08/31/19 10:25 DC 08/04/19 19:56 650 MG Acetylcysteine (Mucomyst 20% Resp Treatment) 600 mg RTBID 10/15/19 12:00 11/06/19 20:01 600 MG Albumin Human 500 ml @ 125 mls/hr PRN Q1HR PRN 10/18/19 15:45 Albuterol Sulfate (Ventolin Neb Soln) 2.5 mg 1X ONCE 07/05/19 22:30 07/05/19 22:31 DC 07/06/19 00:56 2.5 MG Albuterol/ Ipratropium (Duoneb) 3 ml Q4HRS 10/01/19 08:00 11/07/19 05:14 3 ML Alprazolam (Xanax) 0.5 mg PRN TID PRN 11/04/19 08:00 11/06/19 19:27 0.5 MG Alteplase, Recombinant (Cathflo For Central Catheter Clearance) 1 mg 1X ONCE 11/06/19 08:15 11/06/19 08:16 DC 11/06/19 08:23 1 MG Alteplase, Recombinant 4 mg/ Sodium Chloride 20 ml @ 20 mls/hr 1X ONCE 10/05/19 10:00 10/05/19 10:59 DC 10/05/19 10:09 20 MLS/HR Amino Acids/ Glycerin/ Electrolytes 1,000 ml @ 75 mls/hr [id number] 08/08/19 21:15 UNV Artificial Tears (Artificial Tears) 1 drop PRN Q15MIN PRN 08/17/19 05:30 10/11/19 21:17 1 DROP Atenolol (Tenormin) 100 mg DAILY 07/05/19 09:00 07/04/19 20:08 DC Atropine Sulfate (ATROPINE 0.5mg SYRINGE) 0.5 mg PRN Q5MIN PRN 07/21/19 08:15 Barium Sulfate (Varibar Thin Liquid Apple) 148 gm 1X ONCE 09/13/19 11:45 09/13/19 11:49 DC Benzocaine (Hurricaine One) 1 spray 1X ONCE 07/08/19 14:30 07/08/19 14:31 DC 07/08/19 16:38 1 SPRAY Bisacodyl (Dulcolax Supp) 10 mg STK-MED ONCE 08/15/19 10:59 08/15/19 10:59 DC Bumetanide (Bumex) 2 mg DAILY 08/26/19 10:00 09/05/19 17:15 DC 09/05/19 08:07 2 MG Bupivacaine HCl/ Epinephrine Bitart (Sensorcain-Epi 0.5%-1:343643 Mpf) 30 ml STK-MED ONCE 10/18/19 08:34 10/18/19 08:35 DC Calcium Carbonate/ Glycine (Tums) 500 mg PRN AFTMEALHC PRN 07/06/19 17:45 08/31/19 10:25 DC Calcium Chloride 1000 mg/Sodium Chloride 110 ml @ 220 mls/hr 1X ONCE 07/05/19 22:30 07/05/19 22:59 DC 07/05/19 22:11 220 MLS/HR Calcium Chloride 3000 mg/Sodium Chloride 1,030 ml @ 50 mls/hr [id number] 07/07/19 08:00 07/09/19 15:23 DC 07/09/19 02:17 50 MLS/HR Calcium Gluconate (Calcium Gluconate) 2,000 mg 1X ONCE 07/07/19 02:15 07/07/19 02:16 DC 07/07/19 02:19 2,000 MG Calcium Gluconate 1000 mg/Sodium Chloride 110 ml @ 220 mls/hr 1X ONCE 07/06/19 03:30 07/06/19 03:59 DC 07/06/19 03:21 220 MLS/HR Calcium Gluconate 2000 mg/Sodium Chloride 120 ml @ 220 mls/hr 1X ONCE 07/06/19 07:30 07/06/19 08:02 DC 07/06/19 09:05 220 MLS/HR Cefepime HCl (Maxipime) 2 gm Q12HR 07/13/19 09:00 07/27/19 09:58 DC 07/26/19 20:56 2 GM Cellulose (Surgicel Fibrillar 1x2) 1 each STK-MED ONCE 07/25/19 11:00 07/25/19 11:01 DC Cellulose (Surgicel Hemostat 2x14) 1 each STK-MED ONCE 08/15/19 10:58 08/15/19 10:59 DC Cellulose (Surgicel Hemostat 4x8) 1 each STK-MED ONCE 08/15/19 10:58 08/15/19 10:59 DC Chlorhexidine Gluconate (Peridex) 15 ml BID 10/01/19 09:00 10/01/19 07:58 DC Ciprofloxacin/ Dextrose 200 ml @ 200 mls/hr Q12HR 10/30/19 10:00 11/06/19 21:22 200 MLS/HR Cyclobenzaprine HCl (Flexeril) 10 mg PRN Q6HRS PRN 08/18/19 10:45 10/28/19 19:12 10 MG Daptomycin 410 mg/ Sodium Chloride 50 ml @ 100 mls/hr Q24H 09/25/19 14:00 09/28/19 08:30 DC 09/27/19 13:33 100 MLS/HR Daptomycin 430 mg/ Sodium Chloride 50 ml @ 100 mls/hr Q24H 08/13/19 13:00 08/18/19 20:58 DC 08/18/19 13:00 100 MLS/HR Daptomycin 450 mg/ Sodium Chloride 50 ml @ 100 mls/hr Q24H 09/04/19 09:00 09/08/19 08:30 DC 09/07/19 09:25 100 MLS/HR Daptomycin 485 mg/ Sodium Chloride 50 ml @ 100 mls/hr Q24H 08/22/19 11:00 08/30/19 07:44 DC 08/29/19 13:10 100 MLS/HR Daptomycin 500 mg/ Sodium Chloride 50 ml @ 100 mls/hr Q24H 11/02/19 09:00 11/06/19 09:27 100 MLS/HR Desflurane (Suprane) 90 ml STK-MED ONCE 10/18/19 10:18 10/18/19 10:19 DC Dexamethasone Sodium Phosphate (Decadron) 4 mg STK-MED ONCE 08/15/19 10:56 08/15/19 10:57 DC Dexmedetomidine HCl 400 mcg/ Sodium Chloride 100 ml @ 0 mls/hr CONT PRN 07/21/19 08:15 09/17/19 18:31 DC 09/17/19 12:57 8 MLS/HR Dextrose (Dextrose 50%-Water Syringe) 12.5 gm PRN Q15MIN PRN 07/04/19 09:30 Digoxin (Lanoxin) 125 mcg 1X ONCE 07/07/19 18:00 07/07/19 18:01 DC 07/07/19 17:10 125 MCG Diphenhydramine HCl (Benadryl) 25 mg 1X ONCE 11/03/19 19:00 11/03/19 19:01 DC 11/03/19 18:56 25 MG Duloxetine HCl (Cymbalta) 30 mg DAILY 08/28/19 14:00 08/31/19 10:25 DC 08/29/19 09:48 30 MG Enoxaparin Sodium (Lovenox 100mg Syringe) 100 mg Q12HR 08/09/19 21:00 UNV Enoxaparin Sodium (Lovenox 40mg Syringe) 40 mg Q24H 10/19/19 08:00 11/06/19 08:23 40 MG Ephedrine Sulfate (ePHEDrine PF IN SALINE SYRINGE) 50 mg STK-MED ONCE 10/18/19 14:45 10/18/19 14:45 DC Etomidate (Amidate) 8 mg 1X ONCE 07/11/19 08:30 07/11/19 08:31 DC 07/11/19 08:33 8 MG Fentanyl (Duragesic 12mcg/ Hr Patch) 1 patch Q3DAYS 10/28/19 09:00 11/06/19 09:00 1 PATCH Fentanyl (Duragesic 50mcg/ Hr Patch) 1 patch Q72H 09/22/19 21:00 10/01/19 12:00 DC 09/22/19 21:22 1 PATCH Fentanyl Citrate 30 ml @ 0 mls/hr CONT PRN 10/27/19 17:30 Fentanyl Citrate (Fentanyl 2ml Vial) 100 mcg STK-MED ONCE 10/18/19 07:44 10/18/19 07:44 DC Fentanyl Citrate (Fentanyl 5ml Vial) 250 mcg 1X ONCE 08/26/19 09:15 08/26/19 09:16 DC 08/26/19 09:30 50 MCG Flumazenil (Romazicon) 0.5 mg STK-MED ONCE 09/25/19 14:48 09/25/19 14:48 DC Fluoxetine HCl (PROzac) 20 mg QHS 09/22/19 21:00 11/06/19 21:22 20 MG Furosemide (Lasix) 40 mg 1X ONCE 10/12/19 15:30 10/12/19 15:33 DC 10/12/19 16:27 40 MG Haloperidol Lactate (Haldol Inj) 3 mg 1X ONCE 08/22/19 14:30 08/22/19 14:31 DC 08/22/19 14:37 3 MG Heparin Sodium (Porcine) (Hep Lock Adult) 500 unit STK-MED ONCE 07/26/19 09:29 07/26/19 09:30 DC Heparin Sodium (Porcine) (Heparin Sodium) 5,000 unit Q12HR 08/15/19 21:00 08/25/19 09:59 DC 08/24/19 20:57 5,000 UNIT Heparin Sodium (Porcine) 1000 unit/Sodium Chloride 1,001 ml @ 1,001 mls/hr 1X ONCE 10/18/19 06:00 10/18/19 06:59 DC Hydromorphone HCl (Dilaudid Standard [employer]) 12 mg STK-MED ONCE 08/19/19 15:50 08/30/19 11:24 DC Hydromorphone HCl (Dilaudid) 1 mg PRN Q4HRS PRN 08/22/19 19:00 09/05/19 17:10 DC 09/05/19 06:25 1 MG Info (CONTRAST GIVEN -- Rx MONITORING) 1 each PRN DAILY PRN 07/18/19 11:45 07/20/19 11:44 DC Info (Icu Electrolyte Protocol) 1 ea CONT PRN PRN 07/17/19 13:15 Info (PHARMACY MONITORING -- do not chart) 1 each PRN DAILY PRN 08/12/19 15:45 09/13/19 14:14 DC Info (Tpn Per Pharmacy) 1 each PRN DAILY PRN 07/06/19 12:30 UNV Insulin Human Lispro (HumaLOG) 0-9 UNITS Q6HRS 07/04/19 09:30 11/06/19 12:33 4 UNITS Insulin Human Regular (HumuLIN R VIAL) 5 unit 1X ONCE 07/05/19 22:30 07/05/19 22:31 DC 07/05/19 22:14 5 UNIT Iohexol (Omnipaque 240 Mg/ml) 30 ml 1X ONCE 07/18/19 11:30 07/18/19 11:33 DC 07/18/19 11:30 30 ML Iohexol (Omnipaque 300 Mg/ml) 50 ml STK-MED ONCE 10/18/19 08:35 10/18/19 08:35 DC 10/18/19 13:30 10 ML Iohexol (Omnipaque 350 Mg/ml) 90 ml 1X ONCE 07/04/19 03:30 07/04/19 03:31 DC 07/04/19 03:25 90 ML Ketorolac Tromethamine (Toradol 30mg Vial) 30 mg 1X ONCE 07/04/19 03:00 07/04/19 03:01 DC 07/04/19 02:54 30 MG Lidocaine HCl (Buffered Lidocaine 1%) 3 ml 1X ONCE 10/03/19 13:00 10/03/19 13:01 DC 10/03/19 13:11 12 ML Lidocaine HCl (Glydo (Lidocaine) Jelly) 1 ramu 1X ONCE 07/08/19 14:30 07/08/19 14:31 DC 07/08/19 16:38 1 RAUM Lidocaine HCl (Lidocaine 1% 20ml Vial) 20 ml 1X ONCE 09/25/19 15:00 09/25/19 15:01 DC 09/25/19 15:30 20 ML Lidocaine HCl (Lidocaine Pf 2% Vial) 5 ml STK-MED ONCE 10/18/19 07:44 10/18/19 07:44 DC Lidocaine HCl (Xylocaine-Mpf 1% 2ml Vial) 2 ml PRN 1X PRN 08/15/19 07:00 08/16/19 06:59 DC Linezolid/Dextrose 300 ml @ 300 mls/hr Q12HR 09/04/19 09:00 09/07/19 08:11 DC 09/06/19 21:08 300 MLS/HR Lorazepam (Ativan Inj) 0.25 mg PRN Q4HRS PRN 09/21/19 07:30 11/07/19 03:28 0.25 MG Magnesium Sulfate 50 ml @ 25 mls/hr 1X ONCE 10/18/19 16:30 10/18/19 18:29 DC 10/18/19 17:02 25 MLS/HR Meropenem 1 gm/ Sodium Chloride 100 ml @ 200 mls/hr Q12HR 09/25/19 21:00 10/13/19 08:56 DC 10/13/19 08:27 200 MLS/HR Meropenem 500 mg/ Sodium Chloride 50 ml @ 100 mls/hr Q6HRS 10/16/19 18:00 11/07/19 05:56 100 MLS/HR Methylprednisolone Sodium Succinate (SOLU-Medrol 125MG VIAL) 125 mg 1X ONCE 10/01/19 06:15 10/01/19 06:16 DC 10/01/19 06:26 125 MG Metoclopramide HCl (Reglan Vial) 10 mg PRN Q3HRS PRN 08/27/19 16:45 09/01/19 04:25 10 MG Metoprolol Tartrate (Lopressor Vial) 5 mg PRN Q6HRS PRN 09/28/19 09:00 11/05/19 17:50 5 MG Metronidazole 100 ml @ 100 mls/hr Q8HRS 08/02/19 10:00 08/09/19 08:10 DC 08/09/19 06:04 100 MLS/HR Micafungin Sodium 100 mg/Dextrose 100 ml @ 100 mls/hr Q24H 10/18/19 08:30 11/06/19 08:24 100 MLS/HR Midazolam HCl (Versed) 2 mg 1X ONCE 09/25/19 15:00 09/25/19 15:01 DC 09/25/19 15:28 1 MG Midazolam HCl 100 mg/Sodium Chloride 100 ml @ 1 mls/hr CONT PRN 10/18/19 14:45 10/21/19 18:48 10 MLS/HR Midazolam HCl 50 mg/Sodium Chloride 50 ml @ 0 mls/hr CONT PRN 07/11/19 08:15 07/16/19 15:59 DC 07/14/19 22:39 7 MLS/HR Morphine Sulfate (Morphine Sulfate) 1 mg PRN Q1HR PRN 10/18/19 14:45 Multi-Ingred Cream/Lotion/Oil/ Oint (Artificial Tears Eye Ointment) 1 ramu PRN Q1HR PRN 07/13/19 17:30 09/21/19 14:39 DC 08/01/19 08:19 1 RAMU Naloxone HCl (Narcan) 0.4 mg PRN Q2MIN PRN 10/18/19 14:45 Norepinephrine Bitartrate 8 mg/ Dextrose 258 ml @ 13.332 mls/ hr CONT PRN 09/25/19 06:30 10/20/19 09:09 1.6 MLS/HR Ondansetron HCl (Zofran) 4 mg STK-MED ONCE 10/18/19 13:33 10/18/19 13:33 DC Pantoprazole Sodium (PROTONIX VIAL for IV PUSH) 40 mg DAILYAC 07/04/19 11:30 11/06/19 08:22 40 MG Phenylephrine HCl (Brayden-Synephrine Inj) 10 mg STK-MED ONCE 10/18/19 13:33 10/18/19 13:33 DC Phenylephrine HCl (PHENYLEPHRINE in 0.9% NACL PF) 1 mg STK-MED ONCE 10/18/19 14:44 10/18/19 14:45 DC Piperacillin Sod/ Tazobactam Sod 3.375 gm/Sodium Chloride 50 ml @ 100 mls/hr Q6HRS 09/14/19 12:00 09/22/19 07:26 DC 09/22/19 06:10 100 MLS/HR Piperacillin Sod/ Tazobactam Sod 4.5 gm/Sodium Chloride 100 ml @ 200 mls/hr 1X ONCE 07/04/19 06:00 07/04/19 06:29 DC 07/04/19 05:44 200 MLS/HR Potassium Chloride 110 meq/ Magnesium Sulfate 20 meq/ Multivitamins 10 ml/Chromium/ Copper/Manganese/ Seleni/Zn 1 ml/ Insulin Human Regular 15 unit/ Total Parenteral Nutrition/Amino Acids/Dextrose/ Fat Emulsion Intravenous 1,800 ml @ 75 mls/hr TPN CONT 09/11/19 22:00 09/12/19 21:59 DC 09/11/19 22:48 75 MLS/HR Potassium Chloride 15 meq/ Bicarbonate Dialysis Soln w/ out KCl 5,007.5 ml @ 1,000 mls/ hr Q5H1M 07/17/19 20:00 07/21/19 13:08 DC 07/20/19 18:14 1,000 MLS/HR Potassium Chloride 20 meq/ Bicarbonate Dialysis Soln w/ out KCl 5,010 ml @ 1,000 mls/hr Q5H1M 07/13/19 16:00 07/17/19 19:59 DC 07/17/19 14:54 1,000 MLS/HR Potassium Chloride 40 meq/ Potassium Acetate 60 meq/Magnesium Sulfate 10 meq/ Multivitamins 10 ml/Chromium/ Copper/Manganese/ Seleni/Zn 1 ml/ Insulin Human Regular 20 unit/ Total Parenteral Nutrition/Amino Acids/Dextrose/ Fat Emulsion Intravenous 1,800 ml @ 75 mls/hr TPN CONT 09/22/19 22:00 09/23/19 21:59 DC 09/23/19 00:03 75 MLS/HR Potassium Chloride 70 meq/ Magnesium Sulfate 20 meq/ Multivitamins 10 ml/Chromium/ Copper/Manganese/ Seleni/Zn 1 ml/ Insulin Human Regular 15 unit/ Total Parenteral Nutrition/Amino Acids/Dextrose/ Fat Emulsion Intravenous 1,800 ml @ 75 mls/hr TPN CONT 09/16/19 22:00 09/17/19 21:59 DC 09/16/19 23:13 75 MLS/HR Potassium Chloride 75 meq/ Magnesium Sulfate 15 meq/ Multivitamins 10 ml/Chromium/ Copper/Manganese/ Seleni/Zn 0.5 ml/ Insulin Human Regular 15 unit/ Total Parenteral Nutrition/Amino Acids/Dextrose/ Fat Emulsion Intravenous 1,920 ml @ 80 mls/hr TPN CONT 08/27/19 22:00 08/28/19 21:59 DC 08/27/19 22:41 80 MLS/HR Potassium Chloride 75 meq/ Magnesium Sulfate 15 meq/Calcium Gluconate 8 meq/ Multivitamins 10 ml/Chromium/ Copper/Manganese/ Seleni/Zn 0.5 ml/ Insulin Human Regular 15 unit/ Total Parenteral Nutrition/Amino Acids/Dextrose/ Fat Emulsion Intravenous 1,920 ml @ 80 mls/hr TPN CONT 08/25/19 22:00 08/26/19 21:59 DC 08/25/19 22:28 80 MLS/HR Potassium Chloride 75 meq/ Magnesium Sulfate 15 meq/Calcium Gluconate 8 meq/ Multivitamins 10 ml/Chromium/ Copper/Manganese/ Seleni/Zn 0.5 ml/ Insulin Human Regular 20 unit/ Total Parenteral Nutrition/Amino Acids/Dextrose/ Fat Emulsion Intravenous 1,920 ml @ 80 mls/hr TPN CONT 08/24/19 22:00 08/25/19 21:59 DC 08/24/19 22:00 80 MLS/HR Potassium Chloride 75 meq/ Magnesium Sulfate 15 meq/Calcium Gluconate 8 meq/ Multivitamins 10 ml/Chromium/ Copper/Manganese/ Seleni/Zn 0.5 ml/ Insulin Human Regular 25 unit/ Total Parenteral Nutrition/Amino Acids/Dextrose/ Fat Emulsion Intravenous 1,920 ml @ 80 mls/hr TPN CONT 08/22/19 22:00 08/23/19 21:59 DC 08/22/19 23:08 80 MLS/HR Potassium Chloride 75 meq/ Magnesium Sulfate 20 meq/Calcium Gluconate 10 meq/ Multivitamins 10 ml/Chromium/ Copper/Manganese/ Seleni/Zn 0.5 ml/ Insulin Human Regular 25 unit/ Total Parenteral Nutrition/Amino Acids/Dextrose/ Fat Emulsion Intravenous 1,920 ml @ 80 mls/hr TPN CONT 08/21/19 22:00 08/22/19 21:59 DC 08/21/19 22:04 80 MLS/HR Potassium Chloride 75 meq/ Magnesium Sulfate 20 meq/Calcium Gluconate 10 meq/ Multivitamins 10 ml/Chromium/ Copper/Manganese/ Seleni/Zn 0.5 ml/ Insulin Human Regular 30 unit/ Total Parenteral Nutrition/Amino Acids/Dextrose/ Fat Emulsion Intravenous 1,920 ml @ 80 mls/hr TPN CONT 08/20/19 22:00 08/21/19 22:00 DC 08/20/19 21:51 80 MLS/HR Potassium Chloride 80 meq/ Magnesium Sulfate 20 meq/ Multivitamins 10 ml/Chromium/ Copper/Manganese/ Seleni/Zn 0.5 ml/ Insulin Human Regular 15 unit/ Total Parenteral Nutrition/Amino Acids/Dextrose/ Fat Emulsion Intravenous 1,920 ml @ 80 mls/hr TPN CONT 08/30/19 22:00 08/31/19 21:59 DC 08/30/19 21:40 80 MLS/HR Potassium Chloride 80 meq/ Magnesium Sulfate 20 meq/ Multivitamins 10 ml/Chromium/ Copper/Manganese/ Seleni/Zn 1 ml/ Insulin Human Regular 15 unit/ Total Parenteral Nutrition/Amino Acids/Dextrose/ Fat Emulsion Intravenous 1,800 ml @ 75 mls/hr TPN CONT 09/18/19 22:00 09/19/19 21:59 DC 09/18/19 21:54 75 MLS/HR Potassium Chloride 90 meq/ Magnesium Sulfate 20 meq/ Multivitamins 10 ml/Chromium/ Copper/Manganese/ Seleni/Zn 1 ml/ Insulin Human Regular 15 unit/ Total Parenteral Nutrition/Amino Acids/Dextrose/ Fat Emulsion Intravenous 1,800 ml @ 75 mls/hr TPN CONT 09/07/19 22:00 09/08/19 21:59 DC 09/07/19 22:28 75 MLS/HR Potassium Chloride 90 meq/ Magnesium Sulfate 20 meq/ Multivitamins 10 ml/Chromium/ Copper/Manganese/ Seleni/Zn 1 ml/ Insulin Human Regular 20 unit/ Total Parenteral Nutrition/Amino Acids/Dextrose/ Fat Emulsion Intravenous 1,800 ml @ 75 mls/hr TPN CONT 09/21/19 22:00 09/22/19 21:59 DC 09/21/19 23:13 75 MLS/HR Potassium Chloride/Water 100 ml @ 100 mls/hr Q1H 10/05/19 08:00 10/05/19 09:59 DC 10/05/19 09:12 100 MLS/HR Potassium Phosphate 20 mmol/ Sodium Chloride 106.6667 ml @ 51.667 m... 1X ONCE 07/13/19 13:00 07/13/19 15:03 DC 07/13/19 12:51 51.667 MLS/HR Potassium Acetate 30 meq/Magnesium Sulfate 14 meq/ Multivitamins 10 ml/Chromium/ Copper/Manganese/ Seleni/Zn 1 ml/ Insulin Human Regular 15 unit/ Sodium Chloride 20 meq/Potassium Chloride 30 meq/ Total Parenteral Nutrition/Amino Acids/Dextrose/ Fat Emulsion Intravenous 1,920 ml @ 80 mls/hr TPN CONT 10/11/19 22:00 10/12/19 21:59 DC 10/11/19 21:46 80 MLS/HR Potassium Acetate 30 meq/Magnesium Sulfate 20 meq/ Calcium Gluconate 10 meq/ Multivitamins 10 ml/Chromium/ Copper/Manganese/ Seleni/Zn 0.5 ml/ Insulin Human Regular 30 unit/ Potassium Chloride 30 meq/ Total Parenteral Nutrition/Amino Acids/Dextrose/ Fat Emulsion Intravenous 1,920 ml @ 80 mls/hr TPN CONT 08/19/19 22:00 08/20/19 21:59 DC 08/19/19 22:34 80 MLS/HR Potassium Acetate 40 meq/Magnesium Sulfate 10 meq/ Multivitamins 10 ml/Chromium/ Copper/Manganese/ Seleni/Zn 1 ml/ Insulin Human Regular 20 unit/ Total Parenteral Nutrition/Amino Acids/Dextrose/ Fat Emulsion Intravenous 1,920 ml @ 80 mls/hr TPN CONT 10/04/19 22:00 10/05/19 21:59 DC 10/04/19 21:32 80 MLS/HR Potassium Acetate 40 meq/Magnesium Sulfate 5 meq/ Multivitamins 10 ml/Chromium/ Copper/Manganese/ Seleni/Zn 1 ml/ Insulin Human Regular 30 unit/ Total Parenteral Nutrition/Amino Acids/Dextrose/ Fat Emulsion Intravenous 1,920 ml @ 80 mls/hr TPN CONT 10/03/19 22:00 10/04/19 19:34 DC 10/03/19 21:54 80 MLS/HR Potassium Acetate 55 meq/Magnesium Sulfate 20 meq/ Calcium Gluconate 10 meq/ Multivitamins 10 ml/Chromium/ Copper/Manganese/ Seleni/Zn 0.5 ml/ Insulin Human Regular 30 unit/ Total Parenteral Nutrition/Amino Acids/Dextrose/ Fat Emulsion Intravenous 1,920 ml @ 80 mls/hr TPN CONT 08/18/19 22:00 08/19/19 21:59 DC 08/19/19 01:00 80 MLS/HR Potassium Acetate 55 meq/Magnesium Sulfate 20 meq/ Calcium Gluconate 10 meq/ Multivitamins 10 ml/Chromium/ Copper/Manganese/ Seleni/Zn 0.5 ml/ Insulin Human Regular 35 unit/ Total Parenteral Nutrition/Amino Acids/Dextrose/ Fat Emulsion Intravenous 1,920 ml @ 80 mls/hr TPN CONT 08/16/19 22:00 08/17/19 21:59 DC 08/16/19 22:02 80 MLS/HR Potassium Acetate 60 meq/Magnesium Sulfate 10 meq/ Multivitamins 10 ml/Chromium/ Copper/Manganese/ Seleni/Zn 1 ml/ Insulin Human Regular 20 unit/ Total Parenteral Nutrition/Amino Acids/Dextrose/ Fat Emulsion Intravenous 1,920 ml @ 80 mls/hr TPN CONT 10/05/19 22:00 10/06/19 21:59 DC 10/05/19 21:55 80 MLS/HR Potassium Acetate 60 meq/Magnesium Sulfate 14 meq/ Multivitamins 10 ml/Chromium/ Copper/Manganese/ Seleni/Zn 1 ml/ Insulin Human Regular 15 unit/ Sodium Chloride 20 meq/Total Parenteral Nutrition/Amino Acids/Dextrose/ Fat Emulsion Intravenous 1,920 ml @ 80 mls/hr TPN CONT 10/10/19 22:00 10/11/19 21:59 DC 10/10/19 21:54 80 MLS/HR Potassium Acetate 60 meq/Magnesium Sulfate 14 meq/ Multivitamins 10 ml/Chromium/ Copper/Manganese/ Seleni/Zn 1 ml/ Insulin Human Regular 15 unit/ Total Parenteral Nutrition/Amino Acids/Dextrose/ Fat Emulsion Intravenous 1,920 ml @ 80 mls/hr TPN CONT 10/09/19 22:00 10/10/19 21:59 DC 10/09/19 22:22 80 MLS/HR Potassium Acetate 60 meq/Magnesium Sulfate 14 meq/ Multivitamins 10 ml/Chromium/ Copper/Manganese/ Seleni/Zn 1 ml/ Insulin Human Regular 20 unit/ Total Parenteral Nutrition/Amino Acids/Dextrose/ Fat Emulsion Intravenous 1,920 ml @ 80 mls/hr TPN CONT 10/06/19 22:00 10/07/19 21:59 DC 10/06/19 22:26 80 MLS/HR Potassium Acetate 60 meq/Magnesium Sulfate 5 meq/ Multivitamins 10 ml/Chromium/ Copper/Manganese/ Seleni/Zn 1 ml/ Insulin Human Regular 30 unit/ Total Parenteral Nutrition/Amino Acids/Dextrose/ Fat Emulsion Intravenous 1,920 ml @ 80 mls/hr TPN CONT 09/24/19 22:00 09/25/19 21:59 DC 09/24/19 21:54 80 MLS/HR Potassium Acetate 65 meq/Magnesium Sulfate 20 meq/ Calcium Gluconate 10 meq/ Multivitamins 10 ml/Chromium/ Copper/Manganese/ Seleni/Zn 0.5 ml/ Insulin Human Regular 30 unit/ Total Parenteral Nutrition/Amino Acids/Dextrose/ Fat Emulsion Intravenous 1,920 ml @ 80 mls/hr TPN CONT 08/17/19 22:00 08/18/19 21:59 DC 08/17/19 22:22 80 MLS/HR Potassium Acetate 80 meq/Magnesium Sulfate 5 meq/ Multivitamins 10 ml/Chromium/ Copper/Manganese/ Seleni/Zn 1 ml/ Insulin Human Regular 20 unit/ Total Parenteral Nutrition/Amino Acids/Dextrose/ Fat Emulsion Intravenous 1,920 ml @ 80 mls/hr TPN CONT 09/23/19 22:00 09/24/19 21:59 DC 09/23/19 21:59 80 MLS/HR Prochlorperazine Edisylate (Compazine) 5 mg PACU PRN PRN 08/15/19 07:00 08/16/19 06:59 DC Propofol (Diprivan) 200 mg STK-MED ONCE 10/18/19 07:44 10/18/19 07:44 DC Ringer's Solution 1,000 ml @ 30 mls/hr Q24H 08/15/19 07:00 08/15/19 18:59 DC Rocuronium Malin (Zemuron) 100 mg STK-MED ONCE 10/18/19 07:44 10/18/19 07:44 DC Saliva Substitute (Biotene Moisturizing Mouth) 2 spray PRN Q15MIN PRN 09/08/19 11:00 Sevoflurane (Ultane) 60 ml STK-MED ONCE 08/15/19 12:26 08/15/19 12:27 DC Sodium Bicarbonate 150 meq/Dextrose 1,150 ml @ 75 mls/hr 1X ONCE 10/18/19 16:30 10/19/19 07:49 DC 10/18/19 20:02 75 MLS/HR Sodium Bicarbonate 50 meq/Sodium Chloride 1,050 ml @ 75 mls/hr Q14H 07/06/19 07:30 07/11/19 10:28 DC 07/10/19 21:10 75 MLS/HR Sodium Acetate 50 meq/Potassium Acetate 55 meq/ Magnesium Sulfate 20 meq/Calcium Gluconate 10 meq/ Multivitamins 10 ml/Chromium/ Copper/Manganese/ Seleni/Zn 0.5 ml/ Insulin Human Regular 35 unit/ Total Parenteral Nutrition/Amino Acids/Dextrose/ Fat Emulsion Intravenous 1,800 ml @ 75 mls/hr TPN CONT 08/13/19 22:00 08/14/19 21:59 DC 08/13/19 22:03 75 MLS/HR Sodium Bicarbonate (Sodium Bicarb Adult 8.4% Syr) 100 meq 1X ONCE 10/18/19 16:30 10/18/19 16:31 DC 10/18/19 17:07 100 MEQ Sodium Chloride (Normal Saline Flush) 3 ml QSHIFT PRN 10/18/19 14:45 Sodium Chloride 80 meq/Potassium Chloride 30 meq/ Potassium Acetate 30 meq/Magnesium Sulfate 14 meq/ Multivitamins 10 ml/Chromium/ Copper/Manganese/ Seleni/Zn 1 ml/ Insulin Human Regular 15 unit/ Total Parenteral Nutrition/Amino Acids/Dextrose/ Fat Emulsion Intravenous 1,920 ml @ 80 mls/hr TPN CONT 10/19/19 22:00 10/20/19 21:59 DC 10/19/19 23:05 80 MLS/HR Sodium Chloride 90 meq/Calcium Gluconate 10 meq/ Multivitamins 10 ml/Chromium/ Copper/Manganese/ Seleni/Zn 0.5 ml/ Total Parenteral Nutrition/Amino Acids/Dextrose/ Fat Emulsion Intravenous 1,512 ml @ 63 mls/hr TPN CONT 07/06/19 22:00 07/07/19 21:59 DC 07/06/19 22:06 63 MLS/HR Sodium Chloride 90 meq/Calcium Gluconate 10 meq/ Multivitamins 10 ml/Chromium/ Copper/Manganese/ Seleni/Zn 1 ml/ Total Parenteral Nutrition/Amino Acids/Dextrose/ Fat Emulsion Intravenous 55.005 ml @ 2.292 mls/hr TPN CONT 07/06/19 22:00 07/06/19 12:33 DC Sodium Chloride 90 meq/Magnesium Sulfate 10 meq/ Calcium Gluconate 20 meq/ Multivitamins 10 ml/Chromium/ Copper/Manganese/ Seleni/Zn 0.5 ml/ Total Parenteral Nutrition/Amino Acids/Dextrose/ Fat Emulsion Intravenous 1,512 ml @ 63 mls/hr TPN CONT 07/07/19 22:00 07/08/19 21:59 DC 07/07/19 22:25 63 MLS/HR Sodium Chloride 90 meq/Magnesium Sulfate 12 meq/ Calcium Gluconate 15 meq/ Multivitamins 10 ml/Chromium/ Copper/Manganese/ Seleni/Zn 0.5 ml/ Insulin Human Regular 25 unit/ Total Parenteral Nutrition/Amino Acids/Dextrose/ Fat Emulsion Intravenous 1,400 ml @ 58.333 mls/ hr TPN CONT 07/27/19 22:00 07/28/19 21:59 DC 07/27/19 21:41 58.333 MLS/HR Sodium Chloride 90 meq/Potassium Chloride 15 meq/ Magnesium Sulfate 12 meq/Calcium Gluconate 15 meq/ Multivitamins 10 ml/Chromium/ Copper/Manganese/ Seleni/Zn 0.5 ml/ Insulin Human Regular 25 unit/ Total Parenteral Nutrition/Amino Acids/Dextrose/ Fat Emulsion Intravenous 1,400 ml @ 58.333 mls/ hr TPN CONT 07/26/19 22:00 07/27/19 21:59 DC 07/26/19 22:13 58.333 MLS/HR Sodium Chloride 90 meq/Potassium Chloride 15 meq/ Potassium Phosphate 10 mmol/ Magnesium Sulfate 8 meq/Calcium Gluconate 15 meq/ Multivitamins 10 ml/Chromium/ Copper/Manganese/ Seleni/Zn 0.5 ml/ Insulin Human Regular 25 unit/ Total Parenteral Nutrition/Amino Acids/Dextrose/ Fat Emulsion Intravenous 1,400 ml @ 58.333 mls/ hr TPN CONT 07/24/19 22:00 07/25/19 21:59 DC 07/24/19 21:20 58.333 MLS/HR Sodium Chloride 90 meq/Potassium Chloride 15 meq/ Potassium Phosphate 10 mmol/ Magnesium Sulfate 10 meq/Calcium Gluconate 20 meq/ Multivitamins 10 ml/Chromium/ Copper/Manganese/ Seleni/Zn 0.5 ml/ Total Parenteral Nutrition/Amino Acids/Dextrose/ Fat Emulsion Intravenous 1,400 ml @ 58.333 mls/ hr TPN CONT 07/11/19 22:00 07/12/19 21:59 DC 07/11/19 21:42 58.333 MLS/HR Sodium Chloride 90 meq/Potassium Chloride 15 meq/ Potassium Phosphate 10 mmol/ Magnesium Sulfate 12 meq/Calcium Gluconate 15 meq/ Multivitamins 10 ml/Chromium/ Copper/Manganese/ Seleni/Zn 0.5 ml/ Insulin Human Regular 25 unit/ Total Parenteral Nutrition/Amino Acids/Dextrose/ Fat Emulsion Intravenous 1,400 ml @ 58.333 mls/ hr TPN CONT 07/25/19 22:00 07/26/19 21:59 DC 07/25/19 22:24 58.333 MLS/HR Sodium Chloride 90 meq/Potassium Chloride 15 meq/ Potassium Phosphate 15 mmol/ Magnesium Sulfate 10 meq/Calcium Gluconate 15 meq/ Multivitamins 10 ml/Chromium/ Copper/Manganese/ Seleni/Zn 0.5 ml/ Total Parenteral Nutrition/Amino Acids/Dextrose/ Fat Emulsion Intravenous 1,400 ml @ 58.333 mls/ hr TPN CONT 07/12/19 22:00 07/13/19 21:59 DC 07/12/19 22:17 58.333 MLS/HR Sodium Chloride 90 meq/Potassium Chloride 15 meq/ Potassium Phosphate 15 mmol/ Magnesium Sulfate 10 meq/Calcium Gluconate 20 meq/ Multivitamins 10 ml/Chromium/ Copper/Manganese/ Seleni/Zn 0.5 ml/ Total Parenteral Nutrition/Amino Acids/Dextrose/ Fat Emulsion Intravenous 1,200 ml @ 50 mls/hr TPN CONT 07/10/19 22:00 07/10/19 14:17 DC Sodium Chloride 90 meq/Potassium Chloride 15 meq/ Potassium Phosphate 18 mmol/ Magnesium Sulfate 8 meq/Calcium Gluconate 15 meq/ Multivitamins 10 ml/Chromium/ Copper/Manganese/ Seleni/Zn 0.5 ml/ Insulin Human Regular 10 unit/ Total Parenteral Nutrition/Amino Acids/Dextrose/ Fat Emulsion Intravenous 1,400 ml @ 58.333 mls/ hr TPN CONT 07/15/19 22:00 07/16/19 21:59 DC 07/15/19 21:43 58.333 MLS/HR Sodium Chloride 90 meq/Potassium Chloride 15 meq/ Potassium Phosphate 18 mmol/ Magnesium Sulfate 8 meq/Calcium Gluconate 15 meq/ Multivitamins 10 ml/Chromium/ Copper/Manganese/ Seleni/Zn 0.5 ml/ Insulin Human Regular 15 unit/ Total Parenteral Nutrition/Amino Acids/Dextrose/ Fat Emulsion Intravenous 1,400 ml @ 58.333 mls/ hr TPN CONT 07/18/19 22:00 07/19/19 21:59 DC 07/18/19 21:47 58.333 MLS/HR Sodium Chloride 90 meq/Potassium Chloride 15 meq/ Potassium Phosphate 18 mmol/ Magnesium Sulfate 8 meq/Calcium Gluconate 15 meq/ Multivitamins 10 ml/Chromium/ Copper/Manganese/ Seleni/Zn 0.5 ml/ Insulin Human Regular 20 unit/ Total Parenteral Nutrition/Amino Acids/Dextrose/ Fat Emulsion Intravenous 1,400 ml @ 58.333 mls/ hr TPN CONT 07/21/19 22:00 07/22/19 21:59 DC 07/21/19 22:45 58.333 MLS/HR Sodium Chloride 90 meq/Potassium Chloride 15 meq/ Potassium Phosphate 18 mmol/ Magnesium Sulfate 8 meq/Calcium Gluconate 15 meq/ Multivitamins 10 ml/Chromium/ Copper/Manganese/ Seleni/Zn 0.5 ml/ Total Parenteral Nutrition/Amino Acids/Dextrose/ Fat Emulsion Intravenous 1,400 ml @ 58.333 mls/ hr TPN CONT 07/14/19 22:00 07/15/19 21:59 DC 07/14/19 22:00 58.333 MLS/HR Sodium Chloride 90 meq/Potassium Chloride 30 meq/ Potassium Acetate 30 meq/Magnesium Sulfate 15 meq/ Multivitamins 10 ml/Chromium/ Copper/Manganese/ Seleni/Zn 1 ml/ Insulin Human Regular 15 unit/ Total Parenteral Nutrition/Amino Acids/Dextrose/ Fat Emulsion Intravenous 1,680 ml @ 70 mls/hr TPN CONT 11/03/19 22:00 11/04/19 21:59 DC 11/03/19 22:06 70 MLS/HR Sodium Chloride 90 meq/Potassium Phosphate 15 mmol/ Magnesium Sulfate 12 meq/Calcium Gluconate 15 meq/ Multivitamins 10 ml/Chromium/ Copper/Manganese/ Seleni/Zn 0.5 ml/ Insulin Human Regular 30 unit/ Total Parenteral Nutrition/Amino Acids/Dextrose/ Fat Emulsion Intravenous 1,400 ml @ 58.333 mls/ hr TPN CONT 07/29/19 22:00 07/30/19 21:59 DC 07/29/19 21:49 58.333 MLS/HR Sodium Chloride 90 meq/Potassium Phosphate 15 mmol/ Magnesium Sulfate 12 meq/Calcium Gluconate 15 meq/ Multivitamins 10 ml/Chromium/ Copper/Manganese/ Seleni/Zn 0.5 ml/ Insulin Human Regular 40 unit/ Total Parenteral Nutrition/Amino Acids/Dextrose/ Fat Emulsion Intravenous 1,400 ml @ 58.333 mls/ hr TPN CONT 07/30/19 22:00 07/31/19 21:59 DC 07/30/19 21:21 58.333 MLS/HR Sodium Chloride 90 meq/Potassium Phosphate 19 mmol/ Magnesium Sulfate 12 meq/Calcium Gluconate 15 meq/ Multivitamins 10 ml/Chromium/ Copper/Manganese/ Seleni/Zn 0.5 ml/ Insulin Human Regular 40 unit/ Total Parenteral Nutrition/Amino Acids/Dextrose/ Fat Emulsion Intravenous 1,400 ml @ 58.333 mls/ hr TPN CONT 07/31/19 22:00 08/01/19 21:59 DC 07/31/19 21:54 58.333 MLS/HR Sodium Chloride 90 meq/Potassium Phosphate 5 mmol/ Magnesium Sulfate 12 meq/Calcium Gluconate 15 meq/ Multivitamins 10 ml/Chromium/ Copper/Manganese/ Seleni/Zn 0.5 ml/ Insulin Human Regular 30 unit/ Total Parenteral Nutrition/Amino Acids/Dextrose/ Fat Emulsion Intravenous 1,400 ml @ 58.333 mls/ hr TPN CONT 07/28/19 22:00 07/29/19 21:59 DC 07/28/19 22:08 58.333 MLS/HR Sodium Chloride 100 meq/Potassium Chloride 30 meq/ Potassium Acetate 30 meq/Magnesium Sulfate 12 meq/ Multivitamins 10 ml/Chromium/ Copper/Manganese/ Seleni/Zn 1 ml/ Insulin Human Regular 15 unit/ Total Parenteral Nutrition/Amino Acids/Dextrose/ Fat Emulsion Intravenous 1,680 ml @ 70 mls/hr TPN CONT 10/23/19 22:00 10/24/19 21:59 DC 10/23/19 21:23 70 MLS/HR Sodium Chloride 100 meq/Potassium Chloride 40 meq/ Magnesium Sulfate 15 meq/Calcium Gluconate 15 meq/ Multivitamins 10 ml/Chromium/ Copper/Manganese/ Seleni/Zn 0.5 ml/ Insulin Human Regular 35 unit/ Total Parenteral Nutrition/Amino Acids/Dextrose/ Fat Emulsion Intravenous 1,400 ml @ 58.333 mls/ hr TPN CONT 08/07/19 22:00 08/08/19 21:59 DC 08/07/19 22:46 58.333 MLS/HR Sodium Chloride 100 meq/Potassium Chloride 40 meq/ Magnesium Sulfate 20 meq/Calcium Gluconate 10 meq/ Multivitamins 10 ml/Chromium/ Copper/Manganese/ Seleni/Zn 0.5 ml/ Insulin Human Regular 35 unit/ Total Parenteral Nutrition/Amino Acids/Dextrose/ Fat Emulsion Intravenous 1,400 ml @ 58.333 mls/ hr TPN CONT 08/11/19 22:00 08/12/19 21:59 DC 08/12/19 00:06 58.333 MLS/HR Sodium Chloride 100 meq/Potassium Chloride 40 meq/ Magnesium Sulfate 20 meq/Calcium Gluconate 15 meq/ Multivitamins 10 ml/Chromium/ Copper/Manganese/ Seleni/Zn 0.5 ml/ Insulin Human Regular 35 unit/ Total Parenteral Nutrition/Amino Acids/Dextrose/ Fat Emulsion Intravenous 1,400 ml @ 58.333 mls/ hr TPN CONT 08/10/19 22:00 08/11/19 21:59 DC 08/10/19 22:27 58.333 MLS/HR Sodium Chloride 100 meq/Potassium Phosphate 10 mmol/ Magnesium Sulfate 12 meq/Calcium Gluconate 15 meq/ Multivitamins 10 ml/Chromium/ Copper/Manganese/ Seleni/Zn 0.5 ml/ Insulin Human Regular 35 unit/ Potassium Chloride 20 meq/ Total Parenteral Nutrition/Amino Acids/Dextrose/ Fat Emulsion Intravenous 1,400 ml @ 58.333 mls/ hr TPN CONT 08/04/19 22:00 08/05/19 21:59 DC 08/04/19 22:10 58.333 MLS/HR Sodium Chloride 100 meq/Potassium Phosphate 19 mmol/ Magnesium Sulfate 12 meq/Calcium Gluconate 15 meq/ Multivitamins 10 ml/Chromium/ Copper/Manganese/ Seleni/Zn 0.5 ml/ Insulin Human Regular 40 unit/ Potassium Chloride 20 meq/ Total Parenteral Nutrition/Amino Acids/Dextrose/ Fat Emulsion Intravenous 1,400 ml @ 58.333 mls/ hr TPN CONT 08/03/19 22:00 08/04/19 21:59 DC 08/03/19 21:20 58.333 MLS/HR Sodium Chloride 100 meq/Potassium Phosphate 5 mmol/ Magnesium Sulfate 12 meq/Calcium Gluconate 15 meq/ Multivitamins 10 ml/Chromium/ Copper/Manganese/ Seleni/Zn 0.5 ml/ Insulin Human Regular 35 unit/ Potassium Chloride 20 meq/ Total Parenteral Nutrition/Amino Acids/Dextrose/ Fat Emulsion Intravenous 1,400 ml @ 58.333 mls/ hr TPN CONT 08/05/19 22:00 08/06/19 21:59 DC 08/05/19 22:59 58.333 MLS/HR Sodium Chloride 110 meq/Potassium Chloride 30 meq/ Potassium Acetate 30 meq/Magnesium Sulfate 15 meq/ Multivitamins 10 ml/Chromium/ Copper/Manganese/ Seleni/Zn 1 ml/ Insulin Human Regular 15 unit/ Total Parenteral Nutrition/Amino Acids/Dextrose/ Fat Emulsion Intravenous 1,680 ml @ 70 mls/hr TPN CONT 11/05/19 22:00 11/06/19 21:59 DC 11/05/19 22:01 70 MLS/HR Sodium Chloride 110 meq/Sodium Phosphate 10 mmol/ Potassium Chloride 30 meq/ Potassium Acetate 30 meq/Magnesium Sulfate 15 meq/ Multivitamins 10 ml/Chromium/ Copper/Manganese/ Seleni/Zn 1 ml/ Insulin Human Regular 15 unit/ Total Parenteral Nutrition/Amino Acids/Dextrose/ Fat Emulsion Intravenous 1,680 ml @ 70 mls/hr TPN CONT 11/06/19 22:00 11/07/19 21:59 11/06/19 22:03 70 MLS/HR Succinylcholine Chloride (Anectine) 120 mg 1X ONCE 07/11/19 08:30 07/11/19 08:31 DC 07/11/19 08:34 120 MG Vancomycin HCl (Vanco Per Pharmacy) 1 each PRN DAILY PRN 10/30/19 09:15 11/02/19 07:41 DC 11/01/19 02:46 1 EACH Vancomycin HCl (Vancomycin Random Level) 1 each 1X ONCE 11/01/19 01:00 11/01/19 01:01 DC 11/01/19 01:00 1 EACH Vancomycin HCl (Vancomycin Trough Level) 1 each 1X ONCE 11/02/19 09:30 11/02/19 09:31 Cancel Vancomycin HCl 1.5 gm/Sodium Chloride 500 ml @ 250 mls/hr Q12H 11/01/19 10:00 11/02/19 07:41 DC 11/01/19 22:07 250 MLS/HR Vancomycin HCl 2 gm/Sodium Chloride 500 ml @ 250 mls/hr 1X ONCE 10/30/19 10:00 10/30/19 11:59 DC 10/30/19 10:34 250 MLS/HR Vasopressin (Vasostrict) 20 unit STK-MED ONCE 10/18/19 12:23 10/18/19 12:23 DC Vasopressin 20 unit/Dextrose 101 ml @ 12 mls/hr CONT PRN 10/18/19 15:30 10/25/19 04:17 12 MLS/HR Vecuronium Malin (Norcuron Bolus) 6 mg PRN Q6HRS PRN 08/25/19 19:15 08/25/19 19:35 DC Labs: Lab Laboratory Tests Test 11/06/19 08:50 11/06/19 12:31 11/06/19 18:22 11/07/19 00:20 Creatine Kinase 11 U/L (26-192) Glucose (Fingerstick) 162 mg/dL (70-99) 102 mg/dL (70-99) 115 mg/dL (70-99) Test 11/07/19 05:55 White Blood Count 25.3 x10^3/uL (4.0-11.0) Red Blood Count 2.87 x10^6/uL (3.50-5.40) Hemoglobin 8.1 g/dL (12.0-15.5) Hematocrit 24.8 % (36.0-47.0) Mean Corpuscular Volume 86 fL (79-100) Mean Corpuscular Hemoglobin 28 pg (25-35) Mean Corpuscular Hemoglobin Concent 33 g/dL (31-37) Red Cell Distribution Width 15.6 % (11.5-14.5) Platelet Count 688 x10^3/uL (140-400) Neutrophils (%) (Auto) 85 % (31-73) Lymphocytes (%) (Auto) 8 % (24-48) Monocytes (%) (Auto) 6 % (0-9) Eosinophils (%) (Auto) 2 % (0-3) Basophils (%) (Auto) 0 % (0-3) Neutrophils # (Auto) 21.4 x10^3/uL (1.8-7.7) Lymphocytes # (Auto) 1.9 x10^3/uL (1.0-4.8) Monocytes # (Auto) 1.5 x10^3/uL (0.0-1.1) Eosinophils # (Auto) 0.4 x10^3/uL (0.0-0.7) Basophils # (Auto) 0.1 x10^3/uL (0.0-0.2) Sodium Level 133 mmol/L (136-145) Potassium Level 4.6 mmol/L (3.5-5.1) Chloride Level 100 mmol/L (98-107) Carbon Dioxide Level 31 mmol/L (21-32) Anion Gap 2 (6-14) Blood Urea Nitrogen 13 mg/dL (7-20) Creatinine 0.6 mg/dL (0.6-1.0) Estimated GFR (Cockcroft-Gault) 106.3 Glucose Level 113 mg/dL (70-99) Glucose (Fingerstick) 114 mg/dL (70-99) Calcium Level 9.4 mg/dL (8.5-10.1) Micro NEG ALEXANDRA 56 PSEUDOMONAS AERUGINOSA ANTIBIOTIC RESULT INTERPRETATION AMIKACIN <=16 S AZTREONAM >16 R CEFTAZIDIME >16 R CIPROFLOXACIN <=0.25 S CEFEPIME 16 I GENTAMICIN <=2 S LEVOFLOXACIN <=0.5 S CONTINUED ON NEXT PAGE RUN DATE: 09/28/19 [facility] *LIVE* PAGE 2 RUN TIME: 1121 Specimen Inquiry --- --------- SPEC: [id number] PATIENT: SCOTT CUELLAR [id number] (Continued) Procedure Result ANTIMICROBIAL SUSCEPTIBILITY Preliminary (continued) MEROPENEM <=1 S PIPERACILLIN/TAZOBACTAM 64 S TOBRAMYCIN <=2 S Unless otherwise specified, Testing Performed by: [address] [address] For Inquires, the Physician may contact the Microbiology department at [phone] Objective: Assessment: Patient with prolonged hospitalization more than 3 months Multiple medical problems Multiple surgical procedures Pt underwent Exploratory laparotomy, lysis of adhesions, subtotal cholecystectomy with cholangiogram, gastrojejunostomy tube placement, pancreatic necrosectomy October 17 Leucocytosis Leukomoid reaction likely postoperative Fever intermittently source likely GI Acute pancreatitis with persistent necrosis CT a/p 07/27 Increased ascites. 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 Sequela of pancreatitis with extensive pseudocysts again demonstrated, the right-sided collections are slightly larger since the prior exam, the left-sided collections are stable. 6/7 fluid cult PSAE (MDRO),yeast; treated Cholelithiasis with thickening of the gallbladder wall. Leucocytosis JUANA,Hyperkalemia, Metabolic acidosis off dialysis Acute hypoxic resp failure ,bilateral pleural effusion and atelectasis hypocalcemia Prediabetes HTN s/p trach Pleural effusion status post CTS left side Abdominal fluid culture 6 /7 MDRO Pseudomonas, yeast Fevers intermitent throughout this hosp Plan: Plan of Care Meropenem, cipro (10/29), micafungin and dapto BC from 10/29 neg to date Resp culture pending Monitor WBC/temp Wound care /drain management as directed Leucocytosis could be from not adequate drainage ... Gen surgery input noted, appears that tube is almost pulled out... 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
[2019-11-07] MEDS: ONDANSETRON PF 4 MG/2 ML VIAL. IV PRN ×2 (08:41→15:11)
[2019-11-07] MEDS: ALPRAZolam 0.5 MG TABLET PO PRN ×3 (08:41→22:57)
[2019-11-07] MEDS: ENOXAPARIN 40 MG/0.4 ML SYRINGE. SQ SCH (08:41)
[2019-11-07] MEDS: CIPROFLOXACIN 400MG PREMIX 200 ML IV SCH ×2 (08:42→21:02)
[2019-11-07] MEDS: MICAFUNGIN 100 MG in IV DEXTROSE 5% 100ML 100 ML IV SCH (08:43)
[2019-11-07] MEDS: ACETYLCYSTEINE 20% for RESP TX 600 MG/3 ML. NEB SCH ×2 (08:49→20:01)
[2019-11-07] MEDS: PANTOPRAZOLE IV PUSH 40 MG VIAL. IVP SCH (09:12)
[2019-11-07] MEDS: DAPTOmycin (GENERIC) IVPB 500 MG in IV NORMAL SALINE 50ML 50 ML IV SCH (09:14)
--- NOTE | 2019-11-07 09:16 | RAD ---
INDICATION: Reason: resp fail / Spl. Instructions: / History: COMPARISON: October 31, 2019 FINDINGS: Single view of chest obtained. Tracheostomy tube. Left-sided PICC line is again seen. Pigtail drain projecting over the left chest base. Hypoexpanded exam the lungs with focal opacities at lung bases and interstitial prominence. IMPRESSION: * Hypoexpanded examination the lungs with focal opacities at the lung bases which could be a combination of pleural effusion and adjacent airspace consolidation from atelectasis or infiltrate. There is also interstitial prominence which can be seen with edema or interstitial infiltrate. Electronically signed by: Dionte Case MD (11/07/2019 9:13 AM) [id number]
--- NOTE | 2019-11-07 09:55 | PDOC ---
SURGICAL PROGRESS NOTE Subjective working with pt d/w nurse Vital Signs Vital Signs Date Time Temp Pulse Resp B/P (MAP) Pulse Ox O2 Delivery O2 Flow Rate FiO2 11/07/19 08:49 99 Tracheal Collar 8.0 11/07/19 06:00 128 28 131/77 (95) 11/07/19 04:00 99.8 99.8 I&O Intake and Output 11/07/19 07:00 Intake Total 2409.4 ml Output Total 2520 ml Balance -110.6 ml IV Total 2409.4 ml Output Urine Total 1730 ml Gastric Drainage Total 350 ml Chest Tube Drainage Total 160 ml Drainage Total 280 ml General: Cooperative, No acute distress Abdomen: Other (drains bilious, mulitple drains ) Labs Laboratory Tests Test 11/05/19 17:47 11/06/19 00:10 11/06/19 05:53 11/06/19 06:00 Glucose (Fingerstick) 96 mg/dL (70-99) 137 mg/dL (70-99) 120 mg/dL (70-99) Sodium Level 136 mmol/L (136-145) Potassium Level 4.2 mmol/L (3.5-5.1) Chloride Level 102 mmol/L (98-107) Carbon Dioxide Level 30 mmol/L (21-32) Anion Gap 4 (6-14) Blood Urea Nitrogen 10 mg/dL (-20) Creatinine 0.5 mg/dL (0.6-1.0) Estimated GFR (Cockcroft-Gault) 131.1 Glucose Level 129 mg/dL (70-99) Calcium Level 9.6 mg/dL (8.5-10.1) Phosphorus Level 2.6 mg/dL (2.6-4.7) Magnesium Level 2.1 mg/dL (1.8-2.4) Test 11/06/19 08:50 11/06/19 12:31 11/06/19 18:22 11/07/19 00:20 Creatine Kinase 11 U/L (26-192) Glucose (Fingerstick) 162 mg/dL (70-99) 102 mg/dL (70-99) 115 mg/dL (70-99) Test 11/07/19 05:55 White Blood Count 25.3 x10^3/uL (4.0-11.0) Red Blood Count 2.87 x10^6/uL (3.50-5.40) Hemoglobin 8.1 g/dL (12.0-15.5) Hematocrit 24.8 % (36.0-47.0) Mean Corpuscular Volume 86 fL (79-100) Mean Corpuscular Hemoglobin 28 pg (25-35) Mean Corpuscular Hemoglobin Concent 33 g/dL (31-37) Red Cell Distribution Width 15.6 % (11.5-14.5) Platelet Count 688 x10^3/uL (140-400) Neutrophils (%) (Auto) 85 % (31-73) Lymphocytes (%) (Auto) 8 % (24-48) Monocytes (%) (Auto) 6 % (0-9) Eosinophils (%) (Auto) 2 % (0-3) Basophils (%) (Auto) 0 % (0-3) Neutrophils # (Auto) 21.4 x10^3/uL (1.8-7.7) Lymphocytes # (Auto) 1.9 x10^3/uL (1.0-4.8) Monocytes # (Auto) 1.5 x10^3/uL (0.0-1.1) Eosinophils # (Auto) 0.4 x10^3/uL (0.0-0.7) Basophils # (Auto) 0.1 x10^3/uL (0.0-0.2) Sodium Level 133 mmol/L (136-145) Potassium Level 4.6 mmol/L (3.5-5.1) Chloride Level 100 mmol/L (98-107) Carbon Dioxide Level 31 mmol/L (21-32) Anion Gap 2 (6-14) Blood Urea Nitrogen 13 mg/dL (7-20) Creatinine 0.6 mg/dL (0.6-1.0) Estimated GFR (Cockcroft-Gault) 106.3 Glucose Level 113 mg/dL (70-99) Glucose (Fingerstick) 114 mg/dL (70-99) Calcium Level 9.4 mg/dL (8.5-10.1) Laboratory Tests Test 11/06/19 12:31 11/06/19 18:22 11/07/19 00:20 11/07/19 05:55 Glucose (Fingerstick) 162 mg/dL (70-99) 102 mg/dL (70-99) 115 mg/dL (70-99) 114 mg/dL (70-99) White Blood Count 25.3 x10^3/uL (4.0-11.0) Red Blood Count 2.87 x10^6/uL (3.50-5.40) Hemoglobin 8.1 g/dL (12.0-15.5) Hematocrit 24.8 % (36.0-47.0) Mean Corpuscular Volume 86 fL (79-100) Mean Corpuscular Hemoglobin 28 pg (25-35) Mean Corpuscular Hemoglobin Concent 33 g/dL (31-37) Red Cell Distribution Width 15.6 % (11.5-14.5) Platelet Count 688 x10^3/uL (140-400) Neutrophils (%) (Auto) 85 % (31-73) Lymphocytes (%) (Auto) 8 % (24-48) Monocytes (%) (Auto) 6 % (0-9) Eosinophils (%) (Auto) 2 % (0-3) Basophils (%) (Auto) 0 % (0-3) Neutrophils # (Auto) 21.4 x10^3/uL (1.8-7.7) Lymphocytes # (Auto) 1.9 x10^3/uL (1.0-4.8) Monocytes # (Auto) 1.5 x10^3/uL (0.0-1.1) Eosinophils # (Auto) 0.4 x10^3/uL (0.0-0.7) Basophils # (Auto) 0.1 x10^3/uL (0.0-0.2) Sodium Level 133 mmol/L (136-145) Potassium Level 4.6 mmol/L (3.5-5.1) Chloride Level 100 mmol/L (98-107) Carbon Dioxide Level 31 mmol/L (21-32) Anion Gap 2 (6-14) Blood Urea Nitrogen 13 mg/dL (7-20) Creatinine 0.6 mg/dL (0.6-1.0) Estimated GFR (Cockcroft-Gault) 106.3 Glucose Level 113 mg/dL (70-99) Calcium Level 9.4 mg/dL (8.5-10.1) Problem List Problems Medical Problems: (1) Acute pancreatitis Status: Acute (2) Cholelithiasis Status: Acute Assessment/Plan continue care Justicifation of Admission Dx: Justifications for Admission: Justification of Admission Dx: Yes 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 GETTER WELDER Nov 07, 2019 09:55
--- NOTE | 2019-11-07 11:20 | PDOC ---
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 Metabolic encephalopathy. Fevers. Metabolic acidosis. Diffuse pulmonary infiltrate. Pleural effusion. Pancreatitis, necrotizing. Gallstone. Leukocytosis. Lymphopenia. Electrolytes imbalances. Hyperglycemia. DM. HTN. HLD. Anemia. Abnormal CXR. Obesity. Ascites and pleural effusion Ileus with vomiting Anemia JUANA Hyperkalemia Metabolic acidosis Hypertension S/P trache, back on vent Anemia S/P IR drain placement, 09/24 Hypotension, intermittently requiring Levophed She had exploratory laparotomy, lysis of adhesions, subtotal cholecystectomy with cholangiogram, gastrojejunostomy tube placement, pancreatic necrosectomy on 10/17 Plan Keppra if she has further seizures. Treat medical diseases. Subjective None Objective Vital Signs Date Time Temp Pulse Resp B/P (MAP) Pulse Ox O2 Delivery O2 Flow Rate FiO2 11/07/19 08:49 99 Tracheal Collar 8.0 11/07/19 06:00 128 28 131/77 (95) 11/07/19 04:00 99.8 99.8 Intake and Output 11/07/19 07:00 Intake Total 2409.4 ml Output Total 2520 ml Balance -110.6 ml IV Total 2409.4 ml Output Urine Total 1730 ml Gastric Drainage Total 350 ml Chest Tube Drainage Total 160 ml Drainage Total 280 ml PHYSICAL EXAM Alert, off vent, Nonverbal, does not follow commands PERRL. EOMI. CN: no focal findings. Muscle tone: normal. Muscle strength: 2/5 strength DTR: 1+ Plantar reflex: Silent Gait: not examined in bed. Sensory exam: nonfocal Cerebellar: not testable Review of Relevant I have reviewed the following items kolby (where applicable) has been applied. Labs Laboratory Tests Test 11/05/19 17:47 11/06/19 00:10 11/06/19 05:53 11/06/19 06:00 Glucose (Fingerstick) 96 mg/dL (70-99) 137 mg/dL (70-99) 120 mg/dL (70-99) Sodium Level 136 mmol/L (136-145) Potassium Level 4.2 mmol/L (3.5-5.1) Chloride Level 102 mmol/L (98-107) Carbon Dioxide Level 30 mmol/L (21-32) Anion Gap 4 (6-14) Blood Urea Nitrogen 10 mg/dL (7-20) Creatinine 0.5 mg/dL (0.6-1.0) Estimated GFR (Cockcroft-Gault) 131.1 Glucose Level 129 mg/dL (70-99) Calcium Level 9.6 mg/dL (8.5-10.1) Phosphorus Level 2.6 mg/dL (2.6-4.7) Magnesium Level 2.1 mg/dL (1.8-2.4) Test 11/06/19 08:50 11/06/19 12:31 11/06/19 18:22 11/07/19 00:20 Creatine Kinase 11 U/L (26-192) Glucose (Fingerstick) 162 mg/dL (70-99) 102 mg/dL (70-99) 115 mg/dL (70-99) Test 11/07/19 05:55 White Blood Count 25.3 x10^3/uL (4.0-11.0) Red Blood Count 2.87 x10^6/uL (3.50-5.40) Hemoglobin 8.1 g/dL (12.0-15.5) Hematocrit 24.8 % (36.0-47.0) Mean Corpuscular Volume 86 fL (79-100) Mean Corpuscular Hemoglobin 28 pg (25-35) Mean Corpuscular Hemoglobin Concent 33 g/dL (31-37) Red Cell Distribution Width 15.6 % (11.5-14.5) Platelet Count 688 x10^3/uL (140-400) Neutrophils (%) (Auto) 85 % (31-73) Lymphocytes (%) (Auto) 8 % (24-48) Monocytes (%) (Auto) 6 % (0-9) Eosinophils (%) (Auto) 2 % (0-3) Basophils (%) (Auto) 0 % (0-3) Neutrophils # (Auto) 21.4 x10^3/uL (1.8-7.7) Lymphocytes # (Auto) 1.9 x10^3/uL (1.0-4.8) Monocytes # (Auto) 1.5 x10^3/uL (0.0-1.1) Eosinophils # (Auto) 0.4 x10^3/uL (0.0-0.7) Basophils # (Auto) 0.1 x10^3/uL (0.0-0.2) Sodium Level 133 mmol/L (136-145) Potassium Level 4.6 mmol/L (3.5-5.1) Chloride Level 100 mmol/L (98-107) Carbon Dioxide Level 31 mmol/L (21-32) Anion Gap 2 (6-14) Blood Urea Nitrogen 13 mg/dL (7-20) Creatinine 0.6 mg/dL (0.6-1.0) Estimated GFR (Cockcroft-Gault) 106.3 Glucose Level 113 mg/dL (70-99) Glucose (Fingerstick) 114 mg/dL (70-99) Calcium Level 9.4 mg/dL (8.5-10.1) Laboratory Tests Test 11/06/19 12:31 11/06/19 18:22 11/07/19 00:20 11/07/19 05:55 Glucose (Fingerstick) 162 mg/dL (70-99) 102 mg/dL (70-99) 115 mg/dL (70-99) 114 mg/dL (70-99) White Blood Count 25.3 x10^3/uL (4.0-11.0) Red Blood Count 2.87 x10^6/uL (3.50-5.40) Hemoglobin 8.1 g/dL (12.0-15.5) Hematocrit 24.8 % (36.0-47.0) Mean Corpuscular Volume 86 fL (79-100) Mean Corpuscular Hemoglobin 28 pg (25-35) Mean Corpuscular Hemoglobin Concent 33 g/dL (31-37) Red Cell Distribution Width 15.6 % (11.5-14.5) Platelet Count 688 x10^3/uL (140-400) Neutrophils (%) (Auto) 85 % (31-73) Lymphocytes (%) (Auto) 8 % (24-48) Monocytes (%) (Auto) 6 % (0-9) Eosinophils (%) (Auto) 2 % (0-3) Basophils (%) (Auto) 0 % (0-3) Neutrophils # (Auto) 21.4 x10^3/uL (1.8-7.7) Lymphocytes # (Auto) 1.9 x10^3/uL (1.0-4.8) Monocytes # (Auto) 1.5 x10^3/uL (0.0-1.1) Eosinophils # (Auto) 0.4 x10^3/uL (0.0-0.7) Basophils # (Auto) 0.1 x10^3/uL (0.0-0.2) Sodium Level 133 mmol/L (136-145) Potassium Level 4.6 mmol/L (3.5-5.1) Chloride Level 100 mmol/L (98-107) Carbon Dioxide Level 31 mmol/L (21-32) Anion Gap 2 (6-14) Blood Urea Nitrogen 13 mg/dL (7-20) Creatinine 0.6 mg/dL (0.6-1.0) Estimated GFR (Cockcroft-Gault) 106.3 Glucose Level 113 mg/dL (70-99) Calcium Level 9.4 mg/dL (8.5-10.1) Microbiology 11/02/19 Blood Culture - Final, Complete NO GROWTH AFTER 5 DAYS 10/30/19 Gram Stain Evaluation - Final, Complete 10/30/19 Respiratory Culture - Final, Complete 10/30/19 Antimicrobic Susceptibility - Final, Complete 10/18/19 Gram Stain - Final, Complete 10/18/19 Aerobic and Anaerobic Culture - Final, Complete 10/18/19 Antimicrobic Susceptibility - Final, Complete 10/03/19 Gram Stain - Final, Complete 10/03/19 Aerobic and Anaerobic Culture - Final, Complete 09/25/19 Urine Culture - Final, Complete 09/17/19 Gram Stain - Final, Complete 09/17/19 Aerobic Culture - Final, Complete Medications Current Medications Sodium Chloride 1,000 ml @ 1,000 mls/hr Q1H IV Last administered on 07/04/19at 03:00; Start 07/04/19 at 03:00; Stop 07/04/19 at 03:59; Status DC Ondansetron HCl (Zofran) 4 mg 1X ONCE IVP Last administered on 07/04/19at 03:27; Start 07/04/19 at 03:00; Stop 07/04/19 at 03:01; Status DC Morphine Sulfate (Morphine Sulfate) 4 mg 1X ONCE IV ; Start 07/04/19 at 03:00; Stop 07/04/19 at 03:01; Status Cancel Ketorolac Tromethamine (Toradol 30mg Vial) 30 mg 1X ONCE IV Last administered on 07/04/19at 02:54; Start 07/04/19 at 03:00; Stop 07/04/19 at 03:01; Status DC Fentanyl Citrate (Fentanyl 2ml Vial) 25 mcg 1X ONCE IVP Last administered on 07/04/19at 03:23; Start 07/04/19 at 03:30; Stop 07/04/19 at 03:31; Status DC Fentanyl Citrate (Fentanyl 2ml Vial) 100 mcg STK-MED ONCE .ROUTE ; Start 07/04/19 at 03:18; Stop 07/04/19 at 03:18; Status DC Iohexol (Omnipaque 350 Mg/ml) 90 ml 1X ONCE IV Last administered on 07/04/19at 03:25; Start 07/04/19 at 03:30; Stop 07/04/19 at 03:31; Status DC Info (CONTRAST GIVEN -- Rx MONITORING) 1 each PRN DAILY PRN MC SEE COMMENTS; Start 07/04/19 at 03:30; Stop 07/06/19 at 03:29; Status DC Hydromorphone HCl (Dilaudid) 0.5 mg 1X ONCE IV Last administered on 07/04/19at 03:55; Start 07/04/19 at 04:30; Stop 07/04/19 at 04:32; Status DC Ondansetron HCl (Zofran) 4 mg PRN Q8HRS PRN IV NAUSEA/VOMITING 1ST CHOICE; Start 07/04/19 at 05:00; Stop 07/04/19 at 09:27; Status DC Morphine Sulfate (Morphine Sulfate) 2 mg PRN Q2HR PRN IV SEVERE PAIN 7-10 Last administered on 07/05/19at 12:26; Start 07/04/19 at 05:00; Stop 07/05/19 at 14:15; Status DC Sodium Chloride 1,000 ml @ 125 mls/hr Q8H IV Last administered on 07/04/19at 20:56; Start 07/04/19 at 05:00; Stop 07/05/19 at 04:59; Status DC Hydromorphone HCl (Dilaudid) 0.5 mg PRN Q3HRS PRN IV SEVERE PAIN 7-10 Last administered on 07/05/19at 10:06; Start 07/04/19 at 05:00; Stop 07/05/19 at 12:01; Status DC Piperacillin Sod/ Tazobactam Sod 4.5 gm/Sodium Chloride 100 ml @ 200 mls/hr 1X ONCE IV Last administered on 07/04/19at 05:44; Start 07/04/19 at 06:00; Stop 07/04/19 at 06:29; Status DC Ondansetron HCl (Zofran) 4 mg PRN Q4HRS PRN IV NAUSEA/VOMITING 1ST CHOICE Last administered on 11/07/19at 08:41; Start 07/04/19 at 09:30 Insulin Human Lispro (HumaLOG) 0-9 UNITS Q6HRS SQ Last administered on 11/06/19at 12:33; Start 07/04/19 at 09:30 Dextrose (Dextrose 50%-Water Syringe) 12.5 gm PRN Q15MIN PRN IV SEE COMMENTS; Start 07/04/19 at 09:30 Pantoprazole Sodium (PROTONIX VIAL for IV PUSH) 40 mg DAILYAC IVP Last administered on 11/07/19at 09:12; Start 07/04/19 at 11:30 Prochlorperazine Edisylate (Compazine) 10 mg PRN Q6HRS PRN IV NAUSEA/VOMITING, 2nd CHOICE Last administered on 10/31/19at 20:17; Start 07/04/19 at 17:45 Atenolol (Tenormin) 100 mg DAILY PO ; Start 07/05/19 at 09:00; Stop 07/04/19 at 20:08; Status DC Metoprolol Tartrate (Lopressor Vial) 2.5 mg Q6HRS IVP Last administered on 07/05/19at 05:51; Start 07/04/19 at 20:15; Stop 07/05/19 at 10:02; Status DC Metoprolol Tartrate (Lopressor Vial) 5 mg Q6HRS IVP Last administered on 07/14/19at 00:12; Start 07/05/19 at 10:15; Stop 07/16/19 at 08:48; Status DC Hydromorphone HCl (Dilaudid) 1 mg PRN Q3HRS PRN IV SEVERE PAIN 7-10 Last administered on 07/11/19at 05:13; Start 07/05/19 at 12:00; Stop 07/19/19 at 00:25; Status DC Lidocaine HCl (Buffered Lidocaine 1%) 3 ml STK-MED ONCE .ROUTE ; Start 07/05/19 at 12:55; Stop 07/05/19 at 12:56; Status DC Albumin Human 500 ml @ 125 mls/hr 1X ONCE IV Last administered on 07/05/19at 14:33; Start 07/05/19 at 14:30; Stop 07/05/19 at 18:32; Status DC Norepinephrine Bitartrate 8 mg/ Dextrose 258 ml @ 17.299 mls/ hr CONT PRN IV PER PROTOCOL Last administered on 08/02/19at 12:48; Start 07/05/19 at 15:30; Stop 08/05/19 at 09:19; Status DC Sodium Chloride 1,000 ml @ 125 mls/hr Q8H IV Last administered on 07/05/19at 21:04; Start 07/05/19 at 16:00; Stop 07/06/19 at 02:42; Status DC Albumin Human 500 ml @ 125 mls/hr PRN BID PRN IV After every 2L NSS & BP < 90mm Last administered on 10/18/19at 16:06; Start 07/05/19 at 16:00; Stop 10/21/19 at 09:30; Status DC Iohexol (Omnipaque 300 Mg/ml) 60 ml 1X ONCE IV Last administered on 07/05/19at 17:20; Start 07/05/19 at 17:00; Stop 07/05/19 at 17:01; Status DC Info (CONTRAST GIVEN -- Rx MONITORING) 1 each PRN DAILY PRN MC SEE COMMENTS; Start 07/05/19 at 17:00; Stop 07/07/19 at 16:59; Status DC Meropenem 1 gm/ Sodium Chloride 100 ml @ 200 mls/hr Q8HRS IV Last administered on 07/06/19at 05:45; Start 07/05/19 at 20:00; Stop 07/06/19 at 08:48; Status DC Furosemide (Lasix) 40 mg 1X ONCE IVP Last administered on 07/05/19at 22:12; Start 07/05/19 at 22:30; Stop 07/05/19 at 22:31; Status DC Calcium Chloride 1000 mg/Sodium Chloride 110 ml @ 220 mls/hr 1X ONCE IV Last administered on 07/05/19at 22:11; Start 07/05/19 at 22:30; Stop 07/05/19 at 22:59; Status DC Albuterol Sulfate (Ventolin Neb Soln) 2.5 mg 1X ONCE NEB Last administered on 07/06/19at 00:56; Start 07/05/19 at 22:30; Stop 07/05/19 at 22:31; Status DC Insulin Human Regular (HumuLIN R VIAL) 5 unit 1X ONCE IV Last administered on 07/05/19at 22:14; Start 07/05/19 at 22:30; Stop 07/05/19 at 22:31; Status DC Magnesium Sulfate 50 ml @ 25 mls/hr 1X ONCE IV Last administered on 07/06/19at 02:57; Start 07/06/19 at 03:00; Stop 07/06/19 at 04:59; Status DC Calcium Gluconate 1000 mg/Sodium Chloride 110 ml @ 220 mls/hr 1X ONCE IV Last administered on 07/06/19at 02:46; Start 07/06/19 at 03:00; Stop 07/06/19 at 03:29; Status DC Sodium Chloride 1,000 ml @ 200 mls/hr Q5H IV Last administered on 07/06/19at 02:46; Start 07/06/19 at 03:00; Stop 07/06/19 at 10:21; Status DC Calcium Gluconate 1000 mg/Sodium Chloride 110 ml @ 220 mls/hr 1X ONCE IV Last administered on 07/06/19at 03:21; Start 07/06/19 at 03:30; Stop 07/06/19 at 03:59; Status DC Sodium Bicarbonate 50 meq/Sodium Chloride 1,050 ml @ 75 mls/hr Q14H IV Last administered on 07/10/19at 21:10; Start 07/06/19 at 07:30; Stop 07/11/19 at 10:28; Status DC Calcium Gluconate 2000 mg/Sodium Chloride 120 ml @ 220 mls/hr 1X ONCE IV Last administered on 07/06/19at 09:05; Start 07/06/19 at 07:30; Stop 07/06/19 at 08:02; Status DC Lidocaine HCl (Xylocaine-Mpf 1% 2ml Vial) 2 ml STK-MED ONCE .ROUTE ; Start 07/06/19 at 08:47; Stop 07/06/19 at 08:47; Status DC Meropenem 500 mg/ Sodium Chloride 50 ml @ 100 mls/hr Q12HR IV Last adm inistered on 07/11/19at 21:01; Start 07/06/19 at 18:00; Stop 07/12/19 at 07:58; Status DC Lidocaine HCl (Buffered Lidocaine 1%) 3 ml STK-MED ONCE .ROUTE ; Start 07/06/19 at 09:46; Stop 07/06/19 at 09:46; Status DC Lidocaine HCl (Buffered Lidocaine 1%) 6 ml 1X ONCE INJ Last administered on 07/06/19at 10:26; Start 07/06/19 at 10:15; Stop 07/06/19 at 10:16; Status DC Info (Tpn Per Pharmacy) 1 each PRN DAILY PRN MC SEE COMMENTS Last administered on 11/06/19at 08:49; Start 07/06/19 at 12:00 Sodium Chloride 1,000 ml @ 1,000 mls/hr Q1H PRN IV hypotension; Start 07/06/19 at 12:07; Stop 07/06/19 at 18:06; Status DC Diphenhydramine HCl (Benadryl) 25 mg 1X PRN PRN IV ITCHING; Start 07/06/19 at 12:15; Stop 07/07/19 at 12:14; Status DC Diphenhydramine HCl (Benadryl) 25 mg 1X PRN PRN IV ITCHING; Start 07/06/19 at 12:15; Stop 07/07/19 at 12:14; Status DC Sodium Chloride 1,000 ml @ 400 mls/hr Q2H30M PRN IV PATENCY; Start 07/06/19 at 12:07; Stop 07/07/19 at 00:06; Status DC Info (PHARMACY MONITORING -- do not chart) 1 each PRN DAILY PRN MC SEE COMMENTS; Start 07/06/19 at 12:15; Stop 07/08/19 at 08:13; Status DC Sodium Chloride 90 meq/Calcium Gluconate 10 meq/ Multivitamins 10 ml/Chromium/ Copper/Manganese/ Seleni/Zn 1 ml/ Total Parenteral Nutrition/Amino Acids/Dex trose/ Fat Emulsion Intravenous 55.005 ml @ 2.292 mls/hr TPN CONT IV ; Start 07/06/19 at 22:00; Stop 07/06/19 at 12:33; Status DC Info (Tpn Per Pharmacy) 1 each PRN DAILY PRN MC SEE COMMENTS; Start 07/06/19 at 12:30; Status UNV Sodium Chloride 90 meq/Calcium Gluconate 10 meq/ Multivitamins 10 ml/Chromium/ Copper/Manganese/ Seleni/Zn 0.5 ml/ Total Parenteral Nutrition/Amino Aci ds/Dextrose/ Fat Emulsion Intravenous 1,512 ml @ 63 mls/hr TPN CONT IV Last administered on 07/06/19at 22:06; Start 07/06/19 at 22:00; Stop 07/07/19 at 21:59; Status DC Calcium Carbonate/ Glycine (Tums) 500 mg PRN AFTMEALHC PRN PO INDIGESTION; Start 07/06/19 at 17:45; Stop 08/31/19 at 10:25; Status DC Calcium Gluconate (Calcium Gluconate) 2,000 mg 1X ONCE IVP Last administered on 07/07/19at 02:19; Start 07/07/19 at 02:15; Stop 07/07/19 at 02:16; Status DC Calcium Chloride 3000 mg/Sodium Chloride 1,030 ml @ 50 mls/hr [id number] IV Last administered on 07/09/19at 02:17; Start 07/07/19 at 08:00; Stop 07/09/19 at 15:23; Status DC Lorazepam (Ativan Inj) 1 mg PRN Q4HRS PRN IVP ANXIETY / AGITATION, 2nd choic Last administered on 08/05/19at 03:51; Start 07/07/19 at 09:00; Stop 08/05/19 at 09:19; Status DC Sodium Chloride 1,000 ml @ 1,000 mls/hr Q1H PRN IV hypotension; Start 07/07/19 at 08:56; Stop 07/07/19 at 14:55; Status DC Albumin Human 200 ml @ 200 mls/hr 1X PRN PRN IV Hypotension; Start 07/07/19 at 09:00; Stop 07/07/19 at 14:59; Status DC Diphenhydramine HCl (Benadryl) 25 mg 1X PRN PRN IV ITCHING; Start 07/07/19 at 09:00; Stop 07/08/19 at 08:59; Status DC Diphenhydramine HCl (Benadryl) 25 mg 1X PRN PRN IV ITCHING; Start 07/07/19 at 09:00; Stop 07/08/19 at 08:59; Status DC Sodium Chloride 1,000 ml @ 400 mls/hr Q2H30M PRN IV PATENCY; Start 07/07/19 at 08:56; Stop 07/07/19 at 20:55; Status DC Info (PHARMACY MONITORING -- do not chart) 1 each PRN DAILY PRN MC SEE COMMENTS; Start 07/07/19 at 09:00; Status UNV Info (PHARMACY MONITORING -- do not chart) 1 each PRN DAILY PRN MC SEE COMMENTS; Start 07/07/19 at 09:00; Stop 07/08/19 at 08:13; Status DC Digoxin (Lanoxin) 500 mcg 1X ONCE IV Last administered on 07/07/19at 10:04; Start 07/07/19 at 10:00; Stop 07/07/19 at 10:01; Status DC Digoxin (Lanoxin) 125 mcg 1X ONCE IV Last administered on 07/07/19at 17:10; Start 07/07/19 at 18:00; Stop 07/07/19 at 18:01; Status DC Magnesium Sulfate 100 ml @ 25 mls/hr 1X ONCE IV Last administered on 07/07/19at 12:48; Start 07/07/19 at 13:00; Stop 07/07/19 at 16:59; Status DC Sodium Chloride 90 meq/Magnesium Sulfate 10 meq/ Calcium Gluconate 20 meq/ Multivitamins 10 ml/Chromium/ Copper/Manganese/ Seleni/Zn 0.5 ml/ Total Parenteral Nutrition/Amino Acids/Dextrose/ Fat Emulsion Intravenous 1,512 ml @ 63 mls/hr TPN CONT IV Last administered on 07/07/19at 22:25; Start 07/07/19 at 22:00; Stop 07/08/19 at 21:59; Status DC Sodium Chloride 1,000 ml @ 1,000 mls/hr Q1H PRN IV hypotension; Start 07/08/19 at 08:05; Stop 07/08/19 at 14:04; Status DC Albumin Human 200 ml @ 200 mls/hr 1X ONCE IV Last administered on 07/08/19at 08:57; Start 07/08/19 at 08:15; Stop 07/08/19 at 09:14; Status DC Diphenhydramine HCl (Benadryl) 25 mg 1X PRN PRN IV ITCHING; Start 07/08/19 at 08:15; Stop 07/09/19 at 08:14; Status DC Diphenhydramine HCl (Benadryl) 25 mg 1X PRN PRN IV ITCHING; Start 07/08/19 at 08:15; Stop 07/09/19 at 08:14; Status DC Sodium Chloride 1,000 ml @ 400 mls/hr Q2H30M PRN IV PATENCY; Start 07/08/19 at 08:05; Stop 07/08/19 at 20:04; Status DC Info (PHARMACY MONITORING -- do not chart) 1 each PRN DAILY PRN MC SEE COMMENTS; Start 07/08/19 at 08:15; Stop 07/12/19 at 07:57; Status DC Sodium Chloride 90 meq/Potassium Chloride 15 meq/ Potassium Phosphate 10 mmol/ Magnesium Sulfate 10 meq/Calcium Gluconate 20 meq/ Multivitamins 10 ml/Chromium/ Copper/Manganese/ Seleni/Zn 0.5 ml/ Total Parenteral Nutrition/Amino Acids/Dextrose/ Fat Emulsion Intravenous 1,512 ml @ 63 mls/hr TPN CONT IV Last administered on 07/08/19at 21:01; Start 07/08/19 at 22:00; Stop 07/09/19 at 21:59; Status DC Potassium Chloride/Water 100 ml @ 100 mls/hr 1X ONCE IV Last administered on 07/08/19at 14:09; Start 07/08/19 at 14:00; Stop 07/08/19 at 14:59; Status DC Benzocaine (Hurricaine One) 1 spray 1X ONCE MM Last administered on 07/08/19at 16:38; Start 07/08/19 at 14:30; Stop 07/08/19 at 14:31; Status DC Lidocaine HCl (Glydo (Lidocaine) Jelly) 1 ramu 1X ONCE MM Last administered on 07/08/19at 16:38; Start 07/08/19 at 14:30; Stop 07/08/19 at 14:31; Status DC Linezolid/Dextrose 300 ml @ 300 mls/hr Q12HR IV Last administered on 07/14/19at 21:04; Start 07/08/19 at 20:00; Stop 07/15/19 at 07:50; Status DC Acetaminophen (Tylenol) 650 mg PRN Q6HRS PRN PO MILD PAIN / TEMP; Start 07/09/19 at 03:30; Stop 07/09/19 at 03:36; Status DC Acetaminophen (Tylenol) 650 mg PRN Q6HRS PRN PEG MILD PAIN / TEMP Last administered on 08/04/19at 19:56; Start 07/09/19 at 03:36; Stop 08/31/19 at 10:25; Status DC Sodium Chloride 1,000 ml @ 1,000 mls/hr Q1H PRN IV hypotension; Start 07/09/19 at 07:50; Stop 07/09/19 at 13:49; Status DC Albumin Human 200 ml @ 200 mls/hr 1X PRN PRN IV Hypotension; Start 07/09/19 at 08:00; Stop 07/09/19 at 13:59; Status DC Sodium Chloride (Normal Saline Flush) 10 ml 1X PRN PRN IV AP catheter pack; Start 07/09/19 at 08:00; Stop 07/10/19 at 07:59; Status DC Sodium Chloride (Normal Saline Flush) 10 ml 1X PRN PRN IV [employer]UM[employer] catheter pack; Start 07/09/19 at 08:00; Stop 07/10/19 at 07:59; Status DC Sodium Chloride 1,000 ml @ 400 mls/hr Q2H30M PRN IV PATENCY; Start 07/09/19 at 07:50; Stop 07/09/19 at 19:49; Status DC Info (PHARMACY MONITORING -- do not chart) 1 each PRN DAILY PRN MC SEE COMMENTS; Start 07/09/19 at 08:00; Status UNV Info (PHARMACY MONITORING -- do not chart) 1 each PRN DAILY PRN MC SEE COMMENTS; Start 07/09/19 at 08:00; Stop 07/11/19 at 08:25; Status DC Sodium Chloride 90 meq/Potassium Chloride 15 meq/ Potassium Phosphate 10 mmol/ Magnesium Sulfate 10 meq/Calcium Gluconate 20 meq/ Multivitamins 10 ml/Chromium/ Copper/Manganese/ Seleni/Zn 0.5 ml/ Total Parenteral Nutrition/Amino Acids/Dextrose/ Fat Emulsion Intravenous 1,512 ml @ 63 mls/hr TPN CONT IV Last administered on 07/09/19at 20:57; Start 07/09/19 at 22:00; Stop 07/10/19 at 21:59; Status DC Sodium Chloride 90 meq/Potassium Chloride 15 meq/ Potassium Phosphate 15 mmol/ Magnesium Sulfate 10 meq/Calcium Gluconate 20 meq/ Multivitamins 10 ml/Chromium/ Copper/Manganese/ Seleni/Zn 0.5 ml/ Total Parenteral Nutrition/Amino Acids/Dextrose/ Fat Emulsion Intravenous 1,512 ml @ 63 mls/hr TPN CONT IV ; Start 07/10/19 at 22:00; Stop 07/10/19 at 14:16; Status DC Sodium Chloride 90 meq/Potassium Chloride 15 meq/ Potassium Phosphate 15 mmol/ Magnesium Sulfate 10 meq/Calcium Gluconate 20 meq/ Multivitamins 10 ml/Chromium/ Copper/Manganese/ Seleni/Zn 0.5 ml/ Total Parenteral Nutrition/Amino Acids/Dextrose/ Fat Emulsion Intravenous 1,200 ml @ 50 mls/hr TPN CONT IV ; S tart 07/10/19 at 22:00; Stop 07/10/19 at 14:17; Status DC Sodium Chloride 90 meq/Potassium Chloride 15 meq/ Potassium Phosphate 10 mmol/ Magnesium Sulfate 10 meq/Calcium Gluconate 20 meq/ Multivitamins 10 ml/Chromium/ Copper/Manganese/ Seleni/Zn 0.5 ml/ Total Parenteral Nutrition/Amino Acids/Dextrose/ Fat Emulsion Intravenous 1,200 ml @ 50 mls/hr TPN CONT IV Last administered on 07/10/19at 23:29; Start 07/10/19 at 22:00; Stop 07/11/19 at 21:59; Status DC Sodium Chloride 1,000 ml @ 1,000 mls/hr Q1H PRN IV hypotension; Start 07/11/19 at 07:28; Stop 07/11/19 at 13:27; Status DC Albumin Human 200 ml @ 200 mls/hr 1X ONCE IV Last administered on 07/11/19at 08:51; Start 07/11/19 at 07:30; Stop 07/11/19 at 08:29; Status DC Diphenhydramine HCl (Benadryl) 25 mg 1X PRN PRN IV ITCHING; Start 07/11/19 at 07:30; Stop 07/12/19 at 07:29; Status DC Diphenhydramine HCl (Benadryl) 25 mg 1X PRN PRN IV ITCHING; Start 07/11/19 at 07:30; Stop 07/12/19 at 07:29; Status DC Sodium Chloride 1,000 ml @ 400 mls/hr Q2H30M PRN IV PATENCY; Start 07/11/19 at 07:28; Stop 07/11/19 at 19:27; Status DC Info (PHARMACY MONITORING -- do not chart) 1 each PRN DAILY PRN MC SEE COMMENTS; Start 07/11/19 at 07:30; Stop 07/22/19 at 13:01; Status DC Metronidazole 100 ml @ 100 mls/hr Q6HRS IV Last administered on 07/27/19at 06:26; Start 07/11/19 at 08:30; Stop 07/27/19 at 09:58; Status DC Micafungin Sodium 100 mg/Dextrose 100 ml @ 100 mls/hr Q24H IV Last administered on 08/18/19at 08:18; Start 07/11/19 at 09:00; Stop 08/18/19 at 20:58; Status DC Propofol 0 ml @ As Directed STK-MED ONCE IV ; Start 07/11/19 at 07:53; Stop 07/11/19 at 07:53; Status DC Etomidate (Amidate) 20 mg STK-MED ONCE IV ; Start 07/11/19 at 07:53; Stop 07/11/19 at 07:54; Status DC Midazolam HCl (Versed) 5 mg STK-MED ONCE .ROUTE ; Start 07/11/19 at 07:57; Stop 07/11/19 at 07:57; Status DC Fentanyl Citrate 30 ml @ 0 mls/hr CONT PRN IV SEE PROTOCOL Last administered on 08/05/19at 06:12; Start 07/11/19 at 08:15; Stop 08/05/19 at 09:19; Status DC Artificial Tears (Artificial Tears) 1 drop PRN Q1HR PRN OU DRY EYE, 1st choice; Start 07/11/19 at 08:15; Stop 08/17/19 at 05:31; Status DC Midazolam HCl 50 mg/Sodium Chloride 50 ml @ 0 mls/hr CONT PRN IV SEE PROTOCOL Last administered on 07/14/19at 22:39; Start 07/11/19 at 08:15; Stop 07/16/19 at 15:59; Status DC Etomidate (Amidate) 8 mg 1X ONCE IV Last administered on 07/11/19at 08:33; Start 07/11/19 at 08:30; Stop 07/11/19 at 08:31; Status DC Succinylcholine Chloride (Anectine) 120 mg 1X ONCE IV Last administered on 07/11/19at 08:34; Start 07/11/19 at 08:30; Stop 07/11/19 at 08:31; Status DC Midazolam HCl (Versed) 5 mg 1X ONCE IV ; Start 07/11/19 at 08:30; Stop 07/11/19 at 08:31; Status DC Potassium Chloride 15 meq/ Bicarbonate Dialysis Soln w/ out KCl 5,007.5 ml @ 1,000 mls/ hr Q5H1M IV Last administered on 07/12/19at 11:11; Start 07/11/19 at 12:00; Stop 07/12/19 at 11:15; Status DC Potassium Chloride 15 meq/ Bicarbonate Dialysis Soln w/ out KCl 5,007.5 ml @ 1,000 mls/ hr Q5H1M IV Last administered on 07/12/19at 11:12; Start 07/11/19 at 12:00; Stop 07/12/19 at 11:17; Status DC Potassium Chloride 15 meq/ Bicarbonate Dialysis Soln w/ out KCl 5,007.5 ml @ 1,000 mls/ hr Q5H1M IV Last administered on 07/12/19at 11:11; Start 07/11/19 at 12:00; Stop 07/12/19 at 11:19; Status DC Sodium Chloride 90 meq/Potassium Chloride 15 meq/ Potassium Phosphate 10 mmol/ Magnesium Sulfate 10 meq/Calcium Gluconate 20 meq/ Multivitamins 10 ml/Chromium/ Copper/Manganese/ Seleni/Zn 0.5 ml/ Total Parenteral Nutrition/Amino Acids/Dextrose/ Fat Emulsion Intravenous 1,400 ml @ 58.333 mls/ hr TPN CONT IV Last administered on 07/11/19at 21:42; Start 07/11/19 at 22:00; Stop 07/12/19 at 21:59; Status DC Heparin Sodium (Porcine) (Heparin Sodium) 5,000 unit Q8HRS SQ Last administered on 07/16/19at 05:55; Start 07/11/19 at 15:00; Stop 07/16/19 at 13:28; Status DC Meropenem 500 mg/ Sodium Chloride 50 ml @ 100 mls/hr Q6HRS IV Last administered on 07/13/19at 06:00; Start 07/12/19 at 09:00; Stop 07/13/19 at 07:29; Status DC Potassium Phosphate 20 mmol/ Sodium Chloride 106.6667 ml @ 51.667 m... 1X ONCE IV Last administered on 07/12/19at 11:22; Start 07/12/19 at 10:15; Stop 07/12/19 at 12:18; Status DC Acetaminophen (Tylenol Supp) 650 mg PRN Q6HRS PRN AR MILD PAIN / TEMP > 100.3'F Last administered on 11/05/19at 21:21; Start 07/12/19 at 10:30 Potassium Chloride/Water 100 ml @ 100 mls/hr Q1H IV Last administered on 07/12/19at 12:12; Start 07/12/19 at 11:00; Stop 07/12/19 at 12:59; Status DC Potassium Chloride 20 meq/ Bicarbonate Dialysis Soln w/ out KCl 5,010 ml @ 1,000 mls/hr Q5H1M IV Last administered on 07/13/19at 08:48; Start 07/12/19 at 12:00; Stop 07/13/19 at 13:03; Status DC Potassium Chloride 20 meq/ Bicarbonate Dialysis Soln w/ out KCl 5,010 ml @ 1,000 mls/hr Q5H1M IV Last administered on 07/17/19at 14:52; Start 07/12/19 at 11:30; Stop 07/17/19 at 19:59; Status DC Potassium Chloride 20 meq/ Bicarbonate Dialysis Soln w/ out KCl 5,010 ml @ 1,000 mls/hr Q5H1M IV Last administered on 07/17/19at 14:53; Start 07/12/19 at 11:30; Stop 07/17/19 at 19:59; Status DC Sodium Chloride 90 meq/Potassium Chloride 15 meq/ Potassium Phosphate 15 mmol/ Magnesium Sulfate 10 meq/Calcium Gluconate 15 meq/ Multivitamins 10 ml/Chromium/ Copper/Manganese/ Seleni/Zn 0.5 ml/ Total Parenteral Nutrition/Amino Acids/Dextrose/ Fat Emulsion Intravenous 1,400 ml @ 58.333 mls/ hr TPN CONT IV Last administered on 07/12/19at 22:17; Start 07/12/19 at 22:00; Stop 07/13/19 at 21:59; Status DC Cefepime HCl (Maxipime) 2 gm Q12HR IVP Last administered on 07/26/19at 20:56; Start 07/13/19 at 09:00; Stop 07/27/19 at 09:58; Status DC Daptomycin 500 mg/ Sodium Chloride 50 ml @ 100 mls/hr Q48H IV Last administered on 07/29/19at 09:57; Start 07/13/19 at 08:30; Stop 07/29/19 at 10:07; Status DC Lidocaine HCl (Buffered Lidocaine 1%) 3 ml 1X ONCE INJ Last administered on 07/13/19at 10:27; Start 07/13/19 at 10:30; Stop 07/13/19 at 10:31; Status DC Potassium Phosphate 20 mmol/ Sodium Chloride 106.6667 ml @ 51.667 m... 1X ONCE IV Last administered on 07/13/19at 12:51; Start 07/13/19 at 13:00; Stop 07/13/19 at 15:03; Status DC Sodium Chloride 90 meq/Potassium Chloride 15 meq/ Potassium Phosphate 18 mmol/ Magnesium Sulfate 8 meq/Calcium Gluconate 15 meq/ Multivitamins 10 ml/Chromium/ Copper/Manganese/ Seleni/Zn 0.5 ml/ Total Parenteral Nutrition/Amino Acids/Dextrose/ Fat Emulsion Intravenous 1,400 ml @ 58.333 mls/ hr TPN CONT IV Last administered on 07/13/19at 22:16; Start 07/13/19 at 22:00; Stop 07/14/19 at 21:59; Status DC Potassium Chloride 20 meq/ Bicarbonate Dialysis Soln w/ out KCl 5,010 ml @ 1,000 mls/hr Q5H1M IV Last administered on 07/17/19at 14:54; Start 07/13/19 at 16:00; Stop 07/17/19 at 19:59; Status DC Multi-Ingred Cream/Lotion/Oil/ Oint (Artificial Tears Eye Ointment) 1 ramu PRN Q1HR PRN OU DRY EYE, 2nd choice Last administered on 08/01/19at 08:19; Start 07/13/19 at 17:30; Stop 09/21/19 at 14:39; Status DC Sodium Chloride 90 meq/Potassium Chloride 15 meq/ Potassium Phosphate 18 mmol/ Magnesium Sulfate 8 meq/Calcium Gluconate 15 meq/ Multivitamins 10 ml/Chromium/ Copper/Manganese/ Seleni/Zn 0.5 ml/ Total Parenteral Nutrition/Amino Acids/Dextrose/ Fat Emulsion Intravenous 1,400 ml @ 58.333 mls/ hr TPN CONT IV Last administered on 07/14/19at 22:00; Start 07/14/19 at 22:00; Stop 07/15/19 at 21:59; Status DC Albumin Human 500 ml @ 125 mls/hr 1X ONCE IV ; Start 07/14/19 at 14:15; Stop 07/14/19 at 18:14; Status DC Sodium Chloride 90 meq/Potassium Chloride 15 meq/ Potassium Phosphate 18 mmol/ Magnesium Sulfate 8 meq/Calcium Gluconate 15 meq/ Multivitamins 10 ml/Chromium/ Copper/Manganese/ Seleni/Zn 0.5 ml/ Insulin Human Regular 10 unit/ Total Parenteral Nutrition/Amino Acids/Dextrose/ Fat Emulsion Intravenous 1,400 ml @ 58.333 mls/ hr TPN CONT IV Last administered on 07/15/19at 21:43; Start 07/15/19 at 22:00; Stop 07/16/19 at 21:59; Status DC Lidocaine HCl (Buffered Lidocaine 1%) 3 ml STK-MED ONCE .ROUTE ; Start 07/13/19 at 10:00; Stop 07/15/19 at 13:57; Status DC Midazolam HCl 100 mg/Sodium Chloride 100 ml @ 7 mls/hr CONT PRN IV SEE PROTOCOL Last administered on 07/27/19at 15:35; Start 07/16/19 at 16:00; Stop 09/21/19 at 14:38; Status DC Sodium Chloride 90 meq/Potassium Chloride 15 meq/ Potassium Phosphate 18 mmol/ Magnesium Sulfate 8 meq/Calcium Gluconate 15 meq/ Multivitamins 10 ml/Chromium/ Copper/Manganese/ Seleni/Zn 0.5 ml/ Insulin Human Regular 15 unit/ Total Parenteral Nutrition/Amino Acids/Dextrose/ Fat Emulsion Intravenous 1,400 ml @ 58.333 mls/ hr TPN CONT IV Last administered on 07/16/19at 20:34; Start 07/16/19 at 22:00; Stop 07/17/19 at 21:59; Status DC Info (Icu Electrolyte Protocol) 1 ea CONT PRN PRN MC PER PROTOCOL; Start 07/17/19 at 13:15 Sodium Chloride 90 meq/Potassium Chloride 15 meq/ Potassium Phosphate 18 mmol/ Magnesium Sulfate 8 meq/Calcium Gluconate 15 meq/ Multivitamins 10 ml/Chromium/ Copper/Manganese/ Seleni/Zn 0.5 ml/ Insulin Human Regular 15 unit/ Total Parenteral Nutrition/Amino Acids/Dextrose/ Fat Emulsion Intravenous 1,400 ml @ 58.333 mls/ hr TPN CONT IV Last administered on 07/17/19at 22:05; Start 07/17/19 at 22:00; Stop 07/18/19 at 21:59; Status DC Potassium Chloride 15 meq/ Bicarbonate Dialysis Soln w/ out KCl 5,007.5 ml @ 1,000 mls/ hr Q5H1M IV Last administered on 07/20/19at 18:14; Start 07/17/19 at 20:00; Stop 07/21/19 at 13:08; Status DC Potassium Chloride 15 meq/ Bicarbonate Dialysis Soln w/ out KCl 5,007.5 ml @ 1,000 mls/ hr Q5H1M IV Last administered on 07/20/19at 18:14; Start 07/17/19 at 20:00; Stop 07/21/19 at 13:08; Status DC Potassium Chloride 15 meq/ Bicarbonate Dialysis Soln w/ out KCl 5,007.5 ml @ 1,000 mls/ hr Q5H1M IV Last administered on 07/20/19at 18:14; Start 07/17/19 at 20:00; Stop 07/21/19 at 13:08; Status DC Iohexol (Omnipaque 240 Mg/ml) 30 ml 1X ONCE PO Last administered on 07/18/19at 11:30; Start 07/18/19 at 11:30; Stop 07/18/19 at 11:33; Status DC Info (CONTRAST GIVEN -- Rx MONITORING) 1 each PRN DAILY PRN MC SEE COMMENTS; Start 07/18/19 at 11:45; Stop 07/20/19 at 11:44; Status DC Sodium Chloride 90 meq/Potassium Chloride 15 meq/ Potassium Phosphate 18 mmol/ Magnesium Sulfate 8 meq/Calcium Gluconate 15 meq/ Multivitamins 10 ml/Chromium/ Copper/Manganese/ Seleni/Zn 0.5 ml/ Insulin Human Regular 15 unit/ Total Parenteral Nutrition/Amino Acids/Dextrose/ Fat Emulsion Intravenous 1,400 ml @ 58.333 mls/ hr TPN CONT IV Last administered on 07/18/19at 21:47; Start 07/18/19 at 22:00; Stop 07/19/19 at 21:59; Status DC Sodium Chloride 90 meq/Potassium Chloride 15 meq/ Potassium Phosphate 18 mmol/ Magnesium Sulfate 8 meq/Calcium Gluconate 15 meq/ Multivitamins 10 ml/Chromium/ Copper/Manganese/ Seleni/Zn 0.5 ml/ Insulin Human Regular 20 unit/ Total Parenteral Nutrition/Amino Acids/Dextrose/ Fat Emulsion Intravenous 1,400 ml @ 58.333 mls/ hr TPN CONT IV Last administered on 07/19/19at 21:36; Start 07/19/19 at 22:00; Stop 07/20/19 at 21:59; Status DC Alteplase, Recombinant (Cathflo For Central Catheter Clearance) 1 mg 1X ONCE INT CAT Last administered on 07/19/19at 20:03; Start 07/19/19 at 19:30; Stop 07/19/19 at 19:46; Status DC Alteplase, Recombinant (Cathflo For Central Catheter Clearance) 1 mg 1X ONCE INT CAT Last administered on 07/19/19at 22:05; Start 07/19/19 at 22:00; Stop 07/19/19 at 22:01; Status DC Sodium Chloride 90 meq/Potassium Chloride 15 meq/ Potassium Phosphate 18 mmol/ Magnesium Sulfate 8 meq/Calcium Gluconate 15 meq/ Multivitamins 10 ml/Chromium/ Copper/Manganese/ Seleni/Zn 0.5 ml/ Insulin Human Regular 20 unit/ Total Parenteral Nutrition/Amino Acids/Dextrose/ Fat Emulsion Intravenous 1,400 ml @ 58.333 mls/ hr TPN CONT IV Last administered on 07/20/19at 21:30; Start 07/20/19 at 22:00; Stop 07/21/19 at 21:59; Status DC Dexmedetomidine HCl 400 mcg/ Sodium Chloride 100 ml @ 0 mls/hr CONT PRN IV ANXIETY / AGITATION Last administered on 09/17/19at 12:57; Start 07/21/19 at 08:15; Stop 09/17/19 at 18:31; Status DC Sodium Chloride 500 ml @ 500 mls/hr 1X PRN PRN IV ELEVATED BP, SEE COMMENTS; Start 07/21/19 at 08:15 Atropine Sulfate (ATROPINE 0.5mg SYRINGE) 0.5 mg PRN Q5MIN PRN IV SEE COMMENTS; Start 07/21/19 at 08:15 Furosemide (Lasix) 20 mg 1X ONCE IVP Last administered on 07/21/19at 08:19; Start 07/21/19 at 08:15; Stop 07/21/19 at 08:16; Status DC Lidocaine HCl (Buffered Lidocaine 1%) 3 ml STK-MED ONCE .ROUTE ; Start 07/21/19 at 08:39; Stop 07/21/19 at 08:39; Status DC Lidocaine HCl (Buffered Lidocaine 1%) 6 ml 1X ONCE INJ Last administered on 07/21/19at 09:05; Start 07/21/19 at 09:00; Stop 07/21/19 at 09:06; Status DC Sodium Chloride 90 meq/Potassium Chloride 15 meq/ Potassium Phosphate 18 mmol/ Magnesium Sulfate 8 meq/Calcium Gluconate 15 meq/ Multivitamins 10 ml/Chromium/ Copper/Manganese/ Seleni/Zn 0.5 ml/ Insulin Human Regular 20 unit/ Total Parenteral Nutrition/Amino Acids/Dextrose/ Fat Emulsion Intravenous 1,400 ml @ 58.333 mls/ hr TPN CONT IV Last administered on 07/21/19at 22:45; Start 07/21/19 at 22:00; Stop 07/22/19 at 21:59; Status DC Sodium Chloride 1,000 ml @ 1,000 mls/hr Q1H PRN IV hypotension; Start 07/22/19 at 07:30; Stop 07/22/19 at 13:29; Status DC Albumin Human 200 ml @ 200 mls/hr 1X PRN PRN IV Hypotension Last administered on 07/22/19at 09:36; Start 07/22/19 at 07:30; Stop 07/22/19 at 13:29; Status DC Sodium Chloride (Normal Saline Flush) 10 ml 1X PRN PRN IV AP catheter pack; Start 07/22/19 at 07:30; Stop 07/22/19 at 21:29; Status DC Sodium Chloride (Normal Saline Flush) 10 ml 1X PRN PRN IV TUMBLE TAILSTOCK TURRET LATHE OPERATOR catheter pack; Start 07/22/19 at 07:30; Stop 07/23/19 at 07:29; Status DC Sodium Chloride 1,000 ml @ 400 mls/hr Q2H30M PRN IV PATENCY; Start 07/22/19 at 07:30; Stop 07/22/19 at 19:29; Status DC Info (PHARMACY MONITORING -- do not chart) 1 each PRN DAILY PRN MC SEE COMMENTS; Start 07/22/19 at 07:30; Stop 07/22/19 at 13:02; Status DC Info (PHARMACY MONITORING -- do not chart) 1 each PRN DAILY PRN MC SEE COMMENTS; Start 07/22/19 at 07:30; Stop 07/24/19 at 12:45; Status DC Sodium Chloride 90 meq/Potassium Chloride 15 meq/ Potassium Phosphate 10 mmol/ Magnesium Sulfate 8 meq/Calcium Gluconate 15 meq/ Multivitamins 10 ml/Chromium/ Copper/Manganese/ Seleni/Zn 0.5 ml/ Insulin Human Regular 25 unit/ Total Paren teral Nutrition/Amino Acids/Dextrose/ Fat Emulsion Intravenous 1,400 ml @ 58.333 mls/ hr TPN CONT IV Last administered on 07/22/19at 22:19; Start 07/22/19 at 22:00; Stop 07/23/19 at 21:59; Status DC Heparin Sodium (Porcine) (Heparin Sodium) 5,000 unit Q12HR SQ Last administered on 08/14/19at 08:59; Start 07/22/19 at 21:00; Stop 08/14/19 at 10:05; Status DC Ondansetron HCl (Zofran) 4 mg PRN Q6HRS PRN IV NAUSEA/VOMITING; Start 07/25/19 at 07:00; Stop 07/26/19 at 06:59; Status DC Fentanyl Citrate (Fentanyl 2ml Vial) 25 mcg PRN Q5MIN PRN IV MILD PAIN 1-3; Start 07/25/19 at 07:00; Stop 07/26/19 at 06:59; Status DC Fentanyl Citrate (Fentanyl 2ml Vial) 50 mcg PRN Q5MIN PRN IV MODERATE TO SEVERE PAIN; Start 07/25/19 at 07:00; Stop 07/26/19 at 06:59; Status DC Ringer's Solution 1,000 ml @ 30 mls/hr Q24H IV ; Start 07/25/19 at 07:00; Stop 07/25/19 at 18:59; Status DC Lidocaine HCl (Xylocaine-Mpf 1% 2ml Vial) 2 ml PRN 1X PRN ID PRIOR TO IV START; Start 07/25/19 at 07:00; Stop 07/26/19 at 06:59; Status DC Prochlorperazine Edisylate (Compazine) 5 mg PACU PRN PRN IV NAUSEA, MRX1; Start 07/25/19 at 07:00; Stop 07/26/19 at 06:59; Status DC Sodium Chloride 1,000 ml @ 1,000 mls/hr Q1H PRN IV hypotension; Start 07/23/19 at 09:10; Stop 07/23/19 at 15:09; Status DC Albumin Human 200 ml @ 200 mls/hr 1X PRN PRN IV Hypotension Last administered on 07/23/19at 10:10; Start 07/23/19 at 09:15; Stop 07/23/19 at 15:14; Status DC Sodium Chloride 1,000 ml @ 400 mls/hr Q2H30M PRN IV PATENCY; Start 07/23/19 at 09:10; Stop 07/23/19 at 21:09; Status DC Info (PHARMACY MONITORING -- do not chart) 1 each PRN DAILY PRN MC SEE COMMENTS; Start 07/23/19 at 09:15; Stop 07/24/19 at 12:45; Status DC Info (PHARMACY MONITORING -- do not chart) 1 each PRN DAILY PRN MC SEE COMMENTS; Start 07/23/19 at 09:15; Stop 07/24/19 at 12:45; Status DC Sodium Chloride 90 meq/Potassium Chloride 15 meq/ Potassium Phosphate 10 mmol/ Magnesium Sulfate 8 meq/Calcium Gluconate 15 meq/ Multivitamins 10 ml/Chromium/ Copper/Manganese/ Seleni/Zn 0.5 ml/ Insulin Human Regular 25 unit/ Total Parenteral Nutrition/Amino Acids/Dextrose/ Fat Emulsion Intravenous 1,400 ml @ 58.333 mls/ hr TPN CONT IV Last administered on 07/23/19at 22:10; Start 07/23/19 at 22:00; Stop 07/24/19 at 21:59; Status DC Magnesium Sulfate 50 ml @ 25 mls/hr PRN DAILY PRN IV for Mag < 1.7 on am labs Last administered on 10/06/19at 10:57; Start 07/24/19 at 09:15 Sodium Chloride 90 meq/Potassium Chloride 15 meq/ Potassium Phosphate 10 mmol/ Magnesium Sulfate 8 meq/Calcium Gluconate 15 meq/ Multivitamins 10 ml/Chromium/ Copper/Manganese/ Seleni/Zn 0.5 ml/ Insulin Human Regular 25 unit/ Total Parenteral Nutrition/Amino Acids/Dextrose/ Fat Emulsion Intravenous 1,400 ml @ 58.333 mls/ hr TPN CONT IV Last administered on 07/24/19at 21:20; Start 07/24/19 at 22:00; Stop 07/25/19 at 21:59; Status DC Sodium Chloride 1,000 ml @ 1,000 mls/hr Q1H PRN IV hypotension; Start 07/24/19 at 12:23; Stop 07/24/19 at 18:22; Status DC Albumin Human 200 ml @ 200 mls/hr 1X ONCE IV Last administered on 07/24/19at 13:34; Start 07/24/19 at 12:30; Stop 07/24/19 at 13:29; Status DC Diphenhydramine HCl (Benadryl) 25 mg 1X PRN PRN IV ITCHING; Start 07/24/19 at 12:30; Stop 07/25/19 at 12:29; Status DC Diphenhydramine HCl (Benadryl) 25 mg 1X PRN PRN IV ITCHING; Start 07/24/19 at 12:30; Stop 07/25/19 at 12:29; Status DC Info (PHARMACY MONITORING -- do not chart) 1 each PRN DAILY PRN MC SEE COMMENTS; Start 07/24/19 at 12:30; Status Cancel Bupivacaine HCl/ Epinephrine Bitart (Sensorcain-Epi 0.5%-1:[id number] Mpf) 30 ml STK-MED ONCE .ROUTE Last administered on 07/25/19at 11:44; Start 07/25/19 at 11:00; Stop 07/25/19 at 11:01; Status DC Cellulose (Surgicel Fibrillar 1x2) 1 each STK-MED ONCE .ROUTE ; Start 07/25/19 at 11:00; Stop 07/25/19 at 11:01; Status DC Sodium Chloride 90 meq/Potassium Chloride 15 meq/ Potassium Phosphate 10 mmol/ Magnesium Sulfate 12 meq/Calcium Gluconate 15 meq/ Multivitamins 10 ml/Chromium/ Copper/Manganese/ Seleni/Zn 0.5 ml/ Insulin Human Regular 25 unit/ Total Parenteral Nutrition/Amino Acids/Dextrose/ Fat Emulsion Intravenous 1,400 ml @ 58.333 mls/ hr TPN CONT IV Last administered on 07/25/19at 22:24; Start 07/25/19 at 22:00; Stop 07/26/19 at 21:59; Status DC Propofol 20 ml @ As Directed STK-MED ONCE IV ; Start 07/25/19 at 11:07; Stop 07/25/19 at 11:07; Status DC Cellulose (Surgicel Hemostat 4x8) 1 each STK-MED ONCE .ROUTE Last administered on 07/25/19at 11:44; Start 07/25/19 at 11:55; Stop 07/25/19 at 11:56; Status DC Sevoflurane (Ultane) 60 ml STK-MED ONCE IH ; Start 07/25/19 at 12:46; Stop 07/25/19 at 12:46; Status DC Sodium Chloride 1,000 ml @ 1,000 mls/hr Q1H PRN IV hypotension; Start 07/25/19 at 13:51; Stop 07/25/19 at 19:50; Status DC Albumin Human 200 ml @ 200 mls/hr 1X PRN PRN IV Hypotension Last administered on 07/25/19at 14:51; Start 07/25/19 at 14:00; Stop 07/25/19 at 19:59; Status DC Diphenhydramine HCl (Benadryl) 25 mg 1X PRN PRN IV ITCHING; Start 07/25/19 at 14:00; Stop 07/26/19 at 13:59; Status DC Diphenhydramine HCl (Benadryl) 25 mg 1X PRN PRN IV ITCHING; Start 07/25/19 at 14:00; Stop 07/26/19 at 13:59; Status DC Sodium Chloride 1,000 ml @ 400 mls/hr Q2H30M PRN IV PATENCY; Start 07/25/19 at 13:51; Stop 07/26/19 at 01:50; Status DC Info (PHARMACY MONITORING -- do not chart) 1 each PRN DAILY PRN MC SEE COMMENTS; Start 07/25/19 at 14:00; Stop 07/28/19 at 08:16; Status DC Heparin Sodium (Porcine) (Hep Lock Adult) 500 unit STK-MED ONCE IVP ; Start 07/26/19 at 09:29; Stop 07/26/19 at 09:30; Status DC Sodium Chloride 1,000 ml @ 1,000 mls/hr Q1H PRN IV hypotension; Start 07/26/19 at 10:43; Stop 07/26/19 at 16:42; Status DC Sodium Chloride 1,000 ml @ 400 mls/hr Q2H30M PRN IV PATENCY; Start 07/26/19 at 10:43; Stop 07/26/19 at 22:42; Status DC Info (PHARMACY MONITORING -- do not chart) 1 each PRN DAILY PRN MC SEE COMMENTS; Start 07/26/19 at 10:45; Status UNV Info (PHARMACY MONITORING -- do not chart) 1 each PRN DAILY PRN MC SEE COMMENTS; Start 07/26/19 at 10:45; Status UNV Sodium Chloride 90 meq/Potassium Chloride 15 meq/ Magnesium Sulfate 12 meq/Calcium Gluconate 15 meq/ Multivitamins 10 ml/Chromium/ Copper/Manganese/ Seleni/Zn 0.5 ml/ Insulin Human Regular 25 unit/ Total Parenteral Nutrition/Amino Acids/Dextrose/ Fat Emulsion Intravenous 1,400 ml @ 58.333 mls/ hr TPN CONT IV Last administered on 07/26/19at 22:13; Start 07/26/19 at 22:00; Stop 07/27/19 at 21:59; Status DC Sodium Chloride 1,000 ml @ 1,000 mls/hr Q1H PRN IV hypotension; Start 07/27/19 at 07:50; Stop 07/27/19 at 13:49; Status DC Albumin Human 200 ml @ 200 mls/hr 1X ONCE IV ; Start 07/27/19 at 08:00; Stop 07/27/19 at 08:53; Status DC Diphenhydramine HCl (Benadryl) 25 mg 1X PRN PRN IV ITCHING; Start 07/27/19 at 08:00; Stop 07/28/19 at 07:59; Status DC Diphenhydramine HCl (Benadryl) 25 mg 1X PRN PRN IV ITCHING; Start 07/27/19 at 08:00; Stop 07/28/19 at 07:59; Status DC Info (PHARMACY MONITORING -- do not chart) 1 each PRN DAILY PRN MC SEE COM MENTS; Start 07/27/19 at 08:00; Stop 07/28/19 at 08:16; Status DC Albumin Human 50 ml @ 50 mls/hr 1X ONCE IV ; Start 07/27/19 at 08:53; Stop 07/27/19 at 08:56; Status DC Albumin Human 200 ml @ 50 mls/hr PRN 1X PRN IV HYPOTENSION Last administered on 08/02/19at 11:54; Start 07/27/19 at 09:00; Stop 09/08/19 at 11:14; Status DC Meropenem 500 mg/ Sodium Chloride 50 ml @ 100 mls/hr Q12H IV Last administered on 08/16/19at 10:45; Start 07/27/19 at 10:00; Stop 08/16/19 at 12:37; Status DC Sodium Chloride 90 meq/Magnesium Sulfate 12 meq/ Calcium Gluconate 15 meq/ Multivitamins 10 ml/Chromium/ Copper/Manganese/ Seleni/Zn 0.5 ml/ Insulin Human Regular 25 unit/ Total Parenteral Nutrition/Amino Acids/Dextrose/ Fat Emulsion Intravenous 1,400 ml @ 58.333 mls/ hr TPN CONT IV Last administered on 07/27/19at 21:41; Start 07/27/19 at 22:00; Stop 07/28/19 at 21:59; Status DC Sodium Chloride 1,000 ml @ 1,000 mls/hr Q1H PRN IV hypotension; Start 07/28/19 at 07:58; Stop 07/28/19 at 13:57; Status DC Albumin Human 200 ml @ 200 mls/hr 1X PRN PRN IV Hypotension Last administered on 07/28/19at 09:30; Start 07/28/19 at 08:00; Stop 07/28/19 at 13:59; Status DC Sodium Chloride 1,000 ml @ 400 mls/hr Q2H30M PRN IV PATENCY; Start 07/28/19 at 07:58; Stop 07/28/19 at 19:57; Status DC Info (PHARMACY MONITORING -- do not chart) 1 each PRN DAILY PRN MC SEE COMMENTS; Start 07/28/19 at 08:00; Status Cancel Info (PHARMACY MONITORING -- do not chart) 1 each PRN DAILY PRN MC SEE COMMENTS; Start 07/28/19 at 08:15; Status UNV Sodium Chloride 90 meq/Potassium Phosphate 5 mmol/ Magnesium Sulfate 12 meq/Calcium Gluconate 15 meq/ Multivitamins 10 ml/Chromium/ Copper/Manganese/ Seleni/Zn 0.5 ml/ Insulin Human Regular 30 unit/ Total Parenteral Nutrition/Amino Acids/Dextrose/ Fat Emulsion Intravenous 1,400 ml @ 58.333 mls/ hr TPN CONT IV Last administered on 07/28/19at 22:08; Start 07/28/19 at 22:00; Stop 07/29/19 at 21:59; Status DC Linezolid/Dextrose 300 ml @ 300 mls/hr Q12HR IV Last administered on 08/08/19at 20:40; Start 07/29/19 at 11:00; Stop 08/09/19 at 08:10; Status DC Sodium Chloride 90 meq/Potassium Phosphate 15 mmol/ Magnesium Sulfate 12 meq/Calcium Gluconate 15 meq/ Multivitamins 10 ml/Chromium/ Copper/Manganese/ Seleni/Zn 0.5 ml/ Insulin Human Regular 30 unit/ Total Parenteral Nutrition/Amino Acids/Dextrose/ Fat Emulsion Intravenous 1,400 ml @ 58.333 mls/ hr TPN CONT IV Last administered on 07/29/19at 21:49; Start 07/29/19 at 22:00; Stop 07/30/19 at 21:59; Status DC Sodium Chloride 90 meq/Potassium Phosphate 15 mmol/ Magnesium Sulfate 12 meq/Calcium Gluconate 15 meq/ Multivitamins 10 ml/Chromium/ Copper/Manganese/ Seleni/Zn 0.5 ml/ Insulin Human Regular 40 unit/ Total Parenteral Nutrition/Amino Acids/Dextrose/ Fat Emulsion Intravenous 1,400 ml @ 58.333 mls/ hr TPN CONT IV Last administered on 07/30/19at 21:21; Start 07/30/19 at 22:00; Stop 07/31/19 at 21:59; Status DC Sodium Chloride 1,000 ml @ 1,000 mls/hr Q1H PRN IV hypotension; Start 07/30/19 at 13:26; Stop 07/30/19 at 19:25; Status DC Albumin Human 200 ml @ 200 mls/hr 1X PRN PRN IV Hypotension Last administered on 07/30/19at 15:00; Start 07/30/19 at 13:30; Stop 07/30/19 at 19:29; Status DC Sodium Chloride (Normal Saline Flush) 10 ml 1X PRN PRN IV AP catheter pack; Start 07/30/19 at 13:30; Stop 07/31/19 at 13:29; Status DC Sodium Chloride (Normal Saline Flush) 10 ml 1X PRN PRN IV TUMBLE TAILSTOCK TURRET LATHE OPERATOR catheter pack; Start 07/30/19 at 13:30; Stop 07/31/19 at 13:29; Status DC Sodium Chloride 1,000 ml @ 400 mls/hr Q2H30M PRN IV PATENCY; Start 07/30/19 at 13:26; Stop 07/31/19 at 01:25; Status DC Info (PHARMACY MONITORING -- do not chart) 1 each PRN DAILY PRN MC SEE COMMENTS; Start 07/30/19 at 13:30; Stop 07/30/19 at 13:33; Status DC Info (PHARMACY MONITORING -- do not chart) 1 each PRN DAILY PRN MC SEE COMMENTS; Start 07/30/19 at 13:30; Stop 07/30/19 at 13:34; Status DC Sodium Chloride 90 meq/Potassium Phosphate 19 mmol/ Magnesium Sulfate 12 meq/Calcium Gluconate 15 meq/ Multivitamins 10 ml/Chromium/ Copper/Manganese/ Seleni/Zn 0.5 ml/ Insulin Human Regular 40 unit/ Total Parenteral Nutrition/Amino Acids/Dextrose/ Fat Emulsion Intravenous 1,400 ml @ 58.333 mls/ hr TPN CONT IV Last administered on 07/31/19at 21:54; Start 07/31/19 at 22:00; Stop 08/01/19 at 21:59; Status DC Sodium Chloride 1,000 ml @ 1,000 mls/hr Q1H PRN IV hypotension; Start 08/01/19 at 09:35; Stop 08/01/19 at 15:34; Status DC Albumin Human 200 ml @ 200 mls/hr 1X PRN PRN IV Hypotension; Start 08/01/19 at 09:45; Stop 08/01/19 at 15:44; Status DC Diphenhydramine HCl (Benadryl) 25 mg 1X PRN PRN IV ITCHING; Start 08/01/19 at 09:45; Stop 08/02/19 at 09:44; Status DC Diphenhydramine HCl (Benadryl) 25 mg 1X PRN PRN IV ITCHING; Start 08/01/19 at 09:45; Stop 08/02/19 at 09:44; Status DC Sodium Chloride 1,000 ml @ 400 mls/hr Q2H30M PRN IV PATENCY; Start 08/01/19 at 09:35; Stop 08/01/19 at 21:34; Status DC Info (PHARMACY MONITORING -- do not chart) 1 each PRN DAILY PRN MC SEE COMMENTS; Start 08/01/19 at 09:45; Status Cancel Sodium Chloride 100 meq/Potassium Phosphate 19 mmol/ Magnesium Sulfate 12 meq/Calcium Gluconate 15 meq/ Multivitamins 10 ml/Chromium/ Copper/Manganese/ Seleni/Zn 0.5 ml/ Insulin Human Regular 40 unit/ Potassium Chloride 20 meq/ Total Parenteral Nutrition/Amino Acids/Dextrose/ Fat Emulsion Intravenous 1,400 ml @ 58.333 mls/ hr TPN CONT IV Last administered on 08/01/19at 22:02; Start 08/01/19 at 22:00; Stop 08/02/19 at 21:59; Status DC Furosemide (Lasix) 40 mg 1X ONCE IVP Last administered on 08/01/19at 14:39; Start 08/01/19 at 14:30; Stop 08/01/19 at 14:31; Status DC Metronidazole 100 ml @ 100 mls/hr Q8HRS IV Last administered on 08/09/19at 06:04; Start 08/02/19 at 10:00; Stop 08/09/19 at 08:10; Status DC Sodium Chloride 1,000 ml @ 1,000 mls/hr Q1H PRN IV hypotension; Start 08/02/19 at 08:00; Stop 08/02/19 at 13:59; Status DC Albumin Human 200 ml @ 200 mls/hr 1X PRN PRN IV Hypotension; Start 08/02/19 at 08:00; Stop 08/02/19 at 13:59; Status DC Sodium Chloride 1,000 ml @ 400 mls/hr Q2H30M PRN IV PATENCY; Start 08/02/19 at 08:00; Stop 08/02/19 at 19:59; Status DC Info (PHARMACY MONITORING -- do not chart) 1 each PRN DAILY PRN MC SEE COMMENTS; Start 08/02/19 at 11:30; Status UNV Info (PHARMACY MONITORING -- do not chart) 1 each PRN DAILY PRN MC SEE COMMENTS; Start 08/02/19 at 11:30; Stop 08/04/19 at 12:13; Status DC Sodium Chloride 100 meq/Potassium Phosphate 19 mmol/ Magnesium Sulfate 12 meq/Calcium Gluconate 15 meq/ Multivitamins 10 ml/Chromium/ Copper/Manganese/ Seleni/Zn 0.5 ml/ Insulin Human Regular 40 unit/ Potassium Chloride 20 meq/ Total Parenteral Nutrition/Amino Acids/Dextrose/ Fat Emulsion Intravenous 1,400 ml @ 58.333 mls/ hr TPN CONT IV Last administered on 08/02/19at 21:52; Start 08/02/19 at 22:00; Stop 08/03/19 at 21:59; Status DC Sodium Chloride (Normal Saline Flush) 10 ml QSHIFT PRN IV AFTER MEDS AND BLOOD DRAWS; Start 08/02/19 at 15:00; Stop 08/30/19 at 11:27; Status DC Sodium Chloride (Normal Saline Flush) 10 ml PRN Q5MIN PRN IV AFTER MEDS AND BLOOD DRAWS; Start 08/02/19 at 15:00 Sodium Chloride (Normal Saline Flush) 20 ml PRN Q5MIN PRN IV AFTER MEDS AND BLOOD DRAWS; Start 08/02/19 at 15:00 Sodium Chloride 100 meq/Potassium Phosphate 19 mmol/ Magnesium Sulfate 12 meq/Calcium Gluconate 15 meq/ Multivitamins 10 ml/Chromium/ Copper/Manganese/ Seleni/Zn 0.5 ml/ Insulin Human Regular 40 unit/ Potassium Chloride 20 meq/ Total Parenteral Nutrition/Amino Acids/Dextrose/ Fat Emulsion Intravenous 1,400 ml @ 58.333 mls/ hr TPN CONT IV Last administered on 08/03/19at 21:20; Start 08/03/19 at 22:00; Stop 08/04/19 at 21:59; Status DC Lidocaine HCl (Buffered Lidocaine 1%) 3 ml STK-MED ONCE .ROUTE ; Start 08/03/19 at 13:16; Stop 08/03/19 at 13:16; Status DC Lidocaine HCl (Buffered Lidocaine 1%) 6 ml 1X ONCE INJ Last administered on 08/03/19at 13:45; Start 08/03/19 at 13:30; Stop 08/03/19 at 13:31; Status DC Albumin Human 100 ml @ 100 mls/hr 1X ONCE IV Last administered on 08/03/19at 15:41; Start 08/03/19 at 15:00; Stop 08/03/19 at 15:59; Status DC Albumin Human 50 ml @ 50 mls/hr 1X ONCE IV Last administered on 08/03/19at 15:00; Start 08/03/19 at 15:00; Stop 08/03/19 at 15:59; Status DC Info (PHARMACY MONITORING -- do not chart) 1 each PRN DAILY PRN MC SEE COMMENTS; Start 08/04/19 at 11:30; Status Cancel Info (PHARMACY MONITORING -- do not chart) 1 each PRN DAILY PRN MC SEE COMMENTS; Start 08/04/19 at 11:30; Status UNV Sodium Chloride 100 meq/Potassium Phosphate 10 mmol/ Magnesium Sulfate 12 meq/Calcium Gluconate 15 meq/ Multivitamins 10 ml/Chromium/ Copper/Manganese/ S thien/Zn 0.5 ml/ Insulin Human Regular 35 unit/ Potassium Chloride 20 meq/ Total Parenteral Nutrition/Amino Acids/Dextrose/ Fat Emulsion Intravenous 1,400 ml @ 58.333 mls/ hr TPN CONT IV Last administered on 08/04/19at 22:10; Start 08/04/19 at 22:00; Stop 08/05/19 at 21:59; Status DC Sodium Chloride 100 meq/Potassium Phosphate 5 mmol/ Magnesium Sulfate 12 meq/Calcium Gluconate 15 meq/ Multivitamins 10 ml/Chromium/ Copper/Manganese/ Seleni/Zn 0.5 ml/ Insulin Human Regular 35 unit/ Potassium Chloride 20 meq/ Total Parenteral Nutrition/Amino Acids/Dextrose/ Fat Emulsion Intravenous 1,400 ml @ 58.333 mls/ hr TPN CONT IV Last administered on 08/05/19at 22:59; Start 08/05/19 at 22:00; Stop 08/06/19 at 21:59; Status DC Sodium Chloride 1,000 ml @ 1,000 mls/hr Q1H PRN IV hypotension; Start 08/06/19 at 08:27; Stop 08/06/19 at 14:26; Status DC Albumin Human 200 ml @ 200 mls/hr 1X PRN PRN IV Hypotension Last administered on 08/06/19at 09:18; Start 08/06/19 at 08:30; Stop 08/06/19 at 14:29; Status DC Sodium Chloride 1,000 ml @ 400 mls/hr Q2H30M PRN IV PATENCY; Start 08/06/19 at 08:27; Stop 08/06/19 at 20:26; Status DC Info (PHARMACY MONITORING -- do not chart) 1 each PRN DAILY PRN MC SEE COMMENTS; Start 08/06/19 at 08:30; Status Cancel Info (PHARMACY MONITORING -- do not chart) 1 each PRN DAILY PRN MC SEE COMMENTS; Start 08/06/19 at 08:30; Stop 08/14/19 at 13:10; Status DC Sodium Chloride 100 meq/Potassium Chloride 40 meq/ Magnesium Sulfate 15 meq/Calcium Gluconate 15 meq/ Multivitamins 10 ml/Chromium/ Copper/Manganese/ Seleni/Zn 0.5 ml/ Insulin Human Regular 35 unit/ Total Parenteral Nutrition/Amino Acids/Dextrose/ Fat Emulsion Intravenous 1,400 ml @ 58.333 mls/ hr TPN CONT IV Last administered on 08/06/19at 22:00; Start 08/06/19 at 22:00; Stop 08/07/19 at 21:59; Status DC Potassium Chloride/Water 100 ml @ 100 mls/hr 1X ONCE IV Last administered on 08/06/19at 17:28; Start 08/06/19 at 14:45; Stop 08/06/19 at 15:44; Status DC Sodium Chloride 100 meq/Potassium Chloride 40 meq/ Magnesium Sulfate 15 meq/Calc ium Gluconate 15 meq/ Multivitamins 10 ml/Chromium/ Copper/Manganese/ Seleni/Zn 0.5 ml/ Insulin Human Regular 35 unit/ Total Parenteral Nutrition/Amino Acids/Dextrose/ Fat Emulsion Intravenous 1,400 ml @ 58.333 mls/ hr TPN CONT IV Last administered on 08/07/19at 22:46; Start 08/07/19 at 22:00; Stop 08/08/19 at 21:59; Status DC Sodium Chloride 100 meq/Potassium Chloride 40 meq/ Magnesium Sulfate 20 meq/Calcium Gluconate 15 meq/ Multivitamins 10 ml/Chromium/ Copper/Manganese/ Seleni/Zn 0.5 ml/ Insulin Human Regular 35 unit/ Total Parenteral Nutrition/Amino Acids/Dextrose/ Fat Emulsion Intravenous 1,400 ml @ 58.333 mls/ hr TPN CONT IV Last administered on 08/08/19at 22:31; Start 08/08/19 at 22:00; Stop 08/09/19 at 21:59; Status DC Fentanyl Citrate (Fentanyl 2ml Vial) 50 mcg PRN Q2HR PRN IVP PAIN Last administered on 08/15/19at 13:32; Start 08/08/19 at 21:00; Stop 08/16/19 at 12:53 ; Status DC Fentanyl Citrate (Fentanyl 2ml Vial) 25 mcg PRN Q2HR PRN IVP PAIN; Start 08/08/19 at 21:00; Stop 08/16/19 at 12:54; Status DC Enoxaparin Sodium (Lovenox 100mg Syringe) 100 mg Q12HR SQ ; Start 08/09/19 at 21:00; Status UNV Amino Acids/ Glycerin/ Electrolytes 1,000 ml @ 75 mls/hr [id number] IV ; Start 08/08/19 at 21:15; Status UNV Sodium Chloride 1,000 ml @ 1,000 mls/hr Q1H PRN IV hypotension; Start 08/09/19 at 07:56; Stop 08/09/19 at 13:55; Status DC Albumin Human 200 ml @ 200 mls/hr 1X PRN PRN IV Hypotension Last administered on 08/09/19at 08:40; Start 08/09/19 at 08:00; Stop 08/09/19 at 13:59; Status DC Sodium Chloride 1,000 ml @ 400 mls/hr Q2H30M PRN IV PATENCY; Start 08/09/19 at 07:56; Stop 08/09/19 at 19:55; Status DC Info (PHARMACY MONITORING -- do not chart) 1 each PRN DAILY PRN MC SEE COMMENTS; Start 08/09/19 at 08:00; Status UNV Info (PHARMACY MONITORING -- do not chart) 1 each PRN DAILY PRN MC SEE COMMENTS; Start 08/09/19 at 08:00; Status UNV Daptomycin 430 mg/ Sodium Chloride 50 ml @ 100 mls/hr Q24H IV Last administered on 08/09/19at 12:35; Start 08/09/19 at 09:00; Stop 08/09/19 at 12:49; Status DC Sodium Chloride 100 meq/Potassium Chloride 40 meq/ Magnesium Sulfate 20 meq/Calcium Gluconate 15 meq/ Multivitamins 10 ml/Chromium/ Copper/Manganese/ Seleni/Zn 0.5 ml/ Insulin Human Regular 35 unit/ Total Parenteral Nutrition/Amino Acids/Dextrose/ Fat Emulsion Intravenous 1,400 ml @ 58.333 mls/ hr TPN CONT IV Last administered on 08/09/19at 21:26; Start 08/09/19 at 22:00; Stop 08/10/19 at 21:59; Status DC Daptomycin 430 mg/ Sodium Chloride 50 ml @ 100 mls/hr Q48H IV ; Start 08/11/19 at 09:00; Stop 08/10/19 at 11:55; Status DC Sodium Chloride 100 meq/Potassium Chloride 40 meq/ Magnesium Sulfate 20 meq/Calcium Gluconate 15 meq/ Multivitamins 10 ml/Chromium/ Copper/Manganese/ Seleni/Zn 0.5 ml/ Insulin Human Regular 35 unit/ Total Parenteral Nutrition/Alfaro o Acids/Dextrose/ Fat Emulsion Intravenous 1,400 ml @ 58.333 mls/ hr TPN CONT IV Last administered on 08/10/19at 22:27; Start 08/10/19 at 22:00; Stop 08/11/19 at 21:59; Status DC Daptomycin 430 mg/ Sodium Chloride 50 ml @ 100 mls/hr Q24H IV Last admin istered on 08/12/19at 15:07; Start 08/10/19 at 13:00; Stop 08/13/19 at 13:15; Status DC Sodium Chloride 100 meq/Potassium Chloride 40 meq/ Magnesium Sulfate 20 meq/Calcium Gluconate 10 meq/ Multivitamins 10 ml/Chromium/ Copper/Manganese/ Seleni/Zn 0.5 ml/ Insulin Human Regular 35 unit/ Total Parenteral Nutrition/Amino Acids/Dextrose/ Fat Emulsion Intravenous 1,400 ml @ 58.333 mls/ hr TPN CONT IV Last administered on 08/12/19at 00:06; Start 08/11/19 at 22:00; Stop 08/12/19 at 21:59; Status DC Alteplase, Recombinant (Cathflo For Central Catheter Clearance) 1 mg 1X ONCE INT CAT Last administered on 08/12/19at 11:44; Start 08/12/19 at 10:45; Stop 08/12/19 at 10:46; Status DC Ondansetron HCl (Zofran) 4 mg PRN Q6HRS PRN IV NAUSEA/VOMITING; Start 08/15/19 at 07:00; Stop 08/16/19 at 06:59; Status DC Fentanyl Citrate (Fentanyl 2ml Vial) 25 mcg PRN Q5MIN PRN IV MILD PAIN 1-3; Start 08/15/19 at 07:00; Stop 08/16/19 at 06:59; Status DC Fentanyl Citrate (Fentanyl 2ml Vial) 50 mcg PRN Q5MIN PRN IV MODERATE TO SEVERE PAIN Last administered on 08/15/19at 10:17; Start 08/15/19 at 07:00; Stop 08/16/19 at 06:59; Status DC Ringer's Solution 1,000 ml @ 30 mls/hr Q24H IV ; Start 08/15/19 at 07:00; Stop 08/15/19 at 18:59; Status DC Lidocaine HCl (Xylocaine-Mpf 1% 2ml Vial) 2 ml PRN 1X PRN ID PRIOR TO IV START; Start 08/15/19 at 07:00; Stop 08/16/19 at 06:59; Status DC Prochlorperazine Edisylate (Compazine) 5 mg PACU PRN PRN IV NAUSEA, MRX1; Start 08/15/19 at 07:00; Stop 08/16/19 at 06:59; Status DC Sodium Acetate 50 meq/Potassium Acetate 55 meq/ Magnesium Sulfate 20 meq/Calcium Gluconate 10 meq/ Multivitamins 10 ml/Chromium/ Copper/Manganese/ Seleni/Zn 0.5 ml/ Insulin Human Regular 35 unit/ Total Parenteral Nutrition/Amino Acids/Dextrose/ Fat Emulsion Intravenous 1,400 ml @ 58.333 mls/ hr TPN CONT IV ; Start 08/12/19 at 22:00; Stop 08/12/19 at 14:15; Status DC Sodium Acetate 50 meq/Potassium Acetate 55 meq/ Magnesium Sulfate 20 meq/Calcium Gluconate 10 meq/ Multivitamins 10 ml/Chromium/ Copper/Manganese/ Seleni/Zn 0.5 ml/ Insulin Human Regular 35 unit/ Total Parenteral Nutrition/Amino Acids/Dextrose/ Fat Emulsion Intravenous 1,800 ml @ 75 mls/hr TPN CONT IV Last administered on 08/12/19at 22:38; Start 08/12/19 at 22:00; Stop 08/13/19 at 21:59; Status DC Sodium Chloride 1,000 ml @ 1,000 mls/hr Q1H PRN IV hypotension; Start 08/12/19 at 15:31; Stop 08/12/19 at 21:30; Status DC Diphenhydramine HCl (Benadryl) 25 mg 1X PRN PRN IV ITCHING; Start 08/12/19 at 15:45; Stop 08/13/19 at 15:44; Status DC Diphenhydramine HCl (Benadryl) 25 mg 1X PRN PRN IV ITCHING; Start 08/12/19 at 15:45; Stop 08/13/19 at 15:44; Status DC Sodium Chloride 1,000 ml @ 400 mls/hr Q2H30M PRN IV PATENCY; Start 08/12/19 at 15:31; Stop 08/13/19 at 03:30; Status DC Info (PHARMACY MONITORING -- do not chart) 1 each PRN DAILY PRN MC SEE COMMENTS; Start 08/12/19 at 15:45; Stop 09/13/19 at 14:14; Status DC Sodium Acetate 50 meq/Potassium Acetate 55 meq/ Magnesium Sulfate 20 meq/Calcium Gluconate 10 meq/ Multivitamins 10 ml/Chromium/ Copper/Manganese/ Seleni/Zn 0.5 ml/ Insulin Human Regular 35 unit/ Total Parenteral Nutrition/Amino Acids/Dextrose/ Fat Emulsion Intravenous 1,800 ml @ 75 mls/hr TPN CONT IV Last administered on 08/13/19at 22:03; Start 08/13/19 at 22:00; Stop 08/14/19 at 21:59; Status DC Daptomycin 430 mg/ Sodium Chloride 50 ml @ 100 mls/hr Q24H IV Last administered on 08/18/19at 13:00; Start 08/13/19 at 13:00; Stop 08/18/19 at 20:58; Status DC Heparin Sodium (Porcine) 1000 unit/Sodium Chloride 1,001 ml @ 1,001 mls/hr 1X ONCE IRR ; Start 08/15/19 at 06:00; Stop 08/15/19 at 06:59; Status DC Potassium Acetate 55 meq/Magnesium Sulfate 20 meq/ Calcium Gluconate 10 meq/ Multivitamins 10 ml/Chromium/ Copper/Manganese/ Seleni/Zn 0.5 ml/ Insulin Human Regular 35 unit/ Total Parenteral Nutrition/Amino Acids/Dextrose/ Fat Emulsion Intravenous 1,920 ml @ 80 mls/hr TPN CONT IV Last administered on 08/14/19at 22:10; Start 08/14/19 at 22:00; Stop 08/15/19 at 21:59; Status DC Dexamethasone Sodium Phosphate (Decadron) 4 mg STK-MED ONCE .ROUTE ; Start 08/15/19 at 10:56; Stop 08/15/19 at 10:57; Status DC Ondansetron HCl (Zofran) 4 mg STK-MED ONCE .ROUTE ; Start 08/15/19 at 10:56; Stop 08/15/19 at 10:57; Status DC Rocuronium [place] (Zemuron) 50 mg STK-MED ONCE .ROUTE ; Start 08/15/19 at 10:56; Stop 08/15/19 at 10:57; Status DC Fentanyl Citrate (Fentanyl 2ml Vial) 100 mcg STK-MED ONCE .ROUTE ; Start 08/15/19 at 10:56; Stop 08/15/19 at 10:57; Status DC Bupivacaine HCl/ Epinephrine Bitart (Sensorcain-Epi 0.5%-1:045833 Mpf) 30 ml STK-MED ONCE .ROUTE Last administered on 08/15/19at 12:01; Start 08/15/19 at 10:58; Stop 08/15/19 at 10:58; Status DC Cellulose (Surgicel Hemostat 2x14) 1 each STK-MED ONCE .ROUTE ; Start 08/15/19 at 10:58; Stop 08/15/19 at 10:59; Status DC Iohexol (Omnipaque 300 Mg/ml) 50 ml STK-MED ONCE .ROUTE ; Start 08/15/19 at 10:58; Stop 08/15/19 at 10:59; Status DC Cellulose (Surgicel Hemostat 4x8) 1 each STK-MED ONCE .ROUTE ; Start 08/15/19 at 10:58; Stop 08/15/19 at 10:59; Status DC Bisacodyl (Dulcolax Supp) 10 mg STK-MED ONCE .ROUTE ; Start 08/15/19 at 10:59; Stop 08/15/19 at 10:59; Status DC Heparin Sodium (Porcine) 1000 unit/Sodium Chloride 1,001 ml @ 1,001 mls/hr 1X ONCE IRR ; Start 08/15/19 at 12:00; Stop 08/15/19 at 12:59; Status DC Propofol 20 ml @ As Directed STK-MED ONCE IV ; Start 08/15/19 at 11:05; Stop 08/15/19 at 11:05; Status DC Sevoflurane (Ultane) 90 ml STK-MED ONCE IH ; Start 08/15/19 at 11:05; Stop 08/15/19 at 11:05; Status DC Sevoflurane (Ultane) 60 ml STK-MED ONCE IH ; Start 08/15/19 at 12:26; Stop 08/15/19 at 12:27; Status DC Propofol 20 ml @ As Directed STK-MED ONCE IV ; Start 08/15/19 at 12:26; Stop 08/15/19 at 12:27; Status DC Phenylephrine HCl (PHENYLEPHRINE in 0.9% NACL PF) 1 mg STK-MED ONCE IV ; Start 08/15/19 at 12:34; Stop 08/15/19 at 12:34; Status DC Heparin Sodium (Porcine) (Heparin Sodium) 5,000 unit Q12HR SQ Last administered on 08/24/19at 20:57; Start 08/15/19 at 21:00; Stop 08/25/19 at 09:59; Status DC Sodium Chloride (Normal Saline Flush) 3 ml QSHIFT PRN IV AFTER MEDS AND BLOOD DRAWS; Start 08/15/19 at 13:45; Status Cancel Naloxone HCl (Narcan) 0.4 mg PRN Q2MIN PRN IV SEE INSTRUCTIONS Last administered on 09/24/19at 15:15; Start 08/15/19 at 13:45; Stop 10/19/19 at 16:00; Status DC Sodium Chloride 1,000 ml @ 25 mls/hr Q24H IV Last administered on 09/13/19at 13:37; Start 08/15/19 at 13:37; Stop 09/16/19 at 13:09; Status DC Naloxone HCl (Narcan) 0.4 mg PRN Q2MIN PRN IV SEE INSTRUCTIONS; Start 08/15/19 at 14:30; Status UNV Sodium Chloride 1,000 ml @ 25 mls/hr Q24H IV ; Start 08/15/19 at 14:30; Status UNV Hydromorphone HCl 30 ml @ 0 mls/hr CONT PRN PRN IV PER PROTOCOL Last administered on 08/20/19at 16:08; Start 08/15/19 at 14:30; Stop 08/22/19 at 08:55; Status DC Potassium Acetate 55 meq/Magnesium Sulfate 20 meq/ Calcium Gluconate 10 meq/ Multivitamins 10 ml/Chromium/ Copper/Manganese/ Seleni/Zn 0.5 ml/ Insulin Human Regular 35 unit/ Total Parenteral Nutrition/Amino Acids/Dextrose/ Fat Emulsion Intravenous 1,920 ml @ 80 mls/hr TPN CONT IV Last administered on 08/15/19at 22:01; Start 08/15/19 at 22:00; Stop 08/16/19 at 21:59; Status DC Bumetanide (Bumex) 2 mg [id number] IV Last administered on 08/19/19at 13:50; Start 08/16/19 at 14:00; Stop 08/20/19 at 14:10; Status DC Meropenem 1 gm/ Sodium Chloride 100 ml @ 200 mls/hr Q8HRS IV Last administered on 09/09/19at 05:53; Start 08/16/19 at 14:00; Stop 09/09/19 at 09:31; Status DC Potassium Acetate 55 meq/Magnesium Sulfate 20 meq/ Calcium Gluconate 10 meq/ Multivitamins 10 ml/Chromium/ Copper/Manganese/ Seleni/Zn 0.5 ml/ Insulin Human Regular 35 unit/ Total Parenteral Nutrition/Amino Acids/Dextrose/ Fat Emulsion Intravenous 1,920 ml @ 80 mls/hr TPN CONT IV Last administered on 08/16/19at 22:02; Start 08/16/19 at 22:00; Stop 08/17/19 at 21:59; Status DC Hydromorphone HCl (Dilaudid Standard PRODUCTION WORKER) 12 mg STK-MED ONCE IV ; Start 08/15/19 at 14:35; Stop 08/16/19 at 13:53; Status DC Artificial Tears (Artificial Tears) 1 drop PRN Q15MIN PRN OU DRY EYE Last administered on 10/11/19at 21:17; Start 08/17/19 at 05:30 Hydromorphone HCl (Dilaudid Standard PRODUCTION WORKER) 12 mg STK-MED ONCE IV ; Start 08/16/19 at 12:05; Stop 08/17/19 at 09:15; Status DC Potassium Acetate 65 meq/Magnesium Sulfate 20 meq/ Calcium Gluconate 10 meq/ Multivitamins 10 ml/Chromium/ Copper/Manganese/ Seleni/Zn 0.5 ml/ Insulin Human Regular 30 unit/ Total Parenteral Nutrition/Amino Acids/Dextrose/ Fat Emulsion Intravenous 1,920 ml @ 80 mls/hr TPN CONT IV Last administered on 08/17/19at 22:22; Start 08/17/19 at 22:00; Stop 08/18/19 at 21:59; Status DC Cyclobenzaprine HCl (Flexeril) 10 mg PRN Q6HRS PRN PO MUSCLE SPASMS Last administered on 10/28/19at 19:12; Start 08/18/19 at 10:45 Potassium Acetate 55 meq/Magnesium Sulfate 20 meq/ Calcium Gluconate 10 meq/ Multivitamins 10 ml/Chromium/ Copper/Manganese/ Seleni/Zn 0.5 ml/ Insulin Human Regular 30 unit/ Total Parenteral Nutrition/Amino Acids/Dextrose/ Fat Emulsion Intravenous 1,920 ml @ 80 mls/hr TPN CONT IV Last administered on 08/19/19at 01:00; Start 08/18/19 at 22:00; Stop 08/19/19 at 21:59; Status DC Magnesium Sulfate 50 ml @ 25 mls/hr 1X ONCE IV Last administered on 08/18/19at 17:18; Start 08/18/19 at 12:45; Stop 08/18/19 at 14:44; Status DC Potassium Chloride/Water 100 ml @ 100 mls/hr 1X ONCE IV Last administered on 08/19/19at 11:27; Start 08/19/19 at 12:00; Stop 08/19/19 at 12:59; Status DC Hydromorphone HCl (Dilaudid Standard PRODUCTION WORKER) 12 mg STK-MED ONCE IV ; Start 08/17/19 at 10:50; Stop 08/19/19 at 11:02; Status DC Hydromorphone HCl (Dilaudid Standard PRODUCTION WORKER) 12 mg STK-MED ONCE IV ; Start 08/18/19 at 13:47; Stop 08/19/19 at 11:03; Status DC Potassium Acetate 30 meq/Magnesium Sulfate 20 meq/ Calcium Gluconate 10 meq/ Multivitamins 10 ml/Chromium/ Copper/Manganese/ Seleni/Zn 0.5 ml/ Insulin Human Regular 30 unit/ Potassium Chloride 30 meq/ Total Parenteral Nutrition/Amino Acids/Dextrose/ Fat Emulsion Intravenous 1,920 ml @ 80 mls/hr TPN CONT IV Last administered on 08/19/19at 22:34; Start 08/19/19 at 22:00; Stop 08/20/19 at 21:59; Status DC Potassium Chloride/Water 100 ml @ 100 mls/hr Q1H IV Last administered on 08/20/19at 13:05; Start 08/20/19 at 07:00; Stop 08/20/19 at 10:59; Status DC Magnesium Sulfate 50 ml @ 25 mls/hr 1X ONCE IV Last administered on 08/20/19at 10:34; Start 08/20/19 at 10:30; Stop 08/20/19 at 12:29; Status DC Potassium Chloride 75 meq/ Magnesium Sulfate 20 meq/Calcium Gluconate 10 meq/ Multivitamins 10 ml/Chromium/ Copper/Manganese/ Seleni/Zn 0.5 ml/ Insulin Human Regular 30 unit/ Total Parenteral Nutrition/Amino Acids/Dextrose/ Fat Emulsion Intravenous 1,920 ml @ 80 mls/hr TPN CONT IV Last administered on 08/20/19at 21:51; Start 08/20/19 at 22:00; Stop 08/21/19 at 22:00; Status DC Potassium Chloride 75 meq/ Magnesium Sulfate 20 meq/Calcium Gluconate 10 meq/ Multivitamins 10 ml/Chromium/ Copper/Manganese/ Seleni/Zn 0.5 ml/ Insulin Human Regular 25 unit/ Total Parenteral Nutrition/Amino Acids/Dextrose/ Fat Emulsion Intravenous 1,920 ml @ 80 mls/hr TPN CONT IV Last administered on 08/21/19at 22:04; Start 08/21/19 at 22:00; Stop 08/22/19 at 21:59; Status DC Hydromorphone HCl (Dilaudid) 0.4 mg PRN Q4HRS PRN IVP PAIN Last administered on 08/22/19at 10:57; Start 08/22/19 at 09:00; Stop 08/22/19 at 18:59; Status DC Micafungin Sodium 100 mg/Dextrose 100 ml @ 100 mls/hr Q24H IV Last administered on 09/13/19at 12:17; Start 08/22/19 at 11:00; Stop 09/14/19 at 09:59; Status DC Daptomycin 485 mg/ Sodium Chloride 50 ml @ 100 mls/hr Q24H IV Last administered on 08/29/19at 13:10; Start 08/22/19 at 11:00; Stop 08/30/19 at 07:44; Status DC Potassium Chloride 75 meq/ Magnesium Sulfate 15 meq/Calcium Gluconate 8 meq/ Multivitamins 10 ml/Chromium/ Copper/Manganese/ Seleni/Zn 0.5 ml/ Insulin Human Regular 25 unit/ Total Parenteral Nutrition/Amino Acids/Dextrose/ Fat Emulsion Intravenous 1,920 ml @ 80 mls/hr TPN CONT IV Last administered on 08/22/19at 23:08; Start 08/22/19 at 22:00; Stop 08/23/19 at 21:59; Status DC Haloperidol Lactate (Haldol Inj) 3 mg 1X ONCE IVP Last administered on 08/22/19at 14:37; Start 08/22/19 at 14:30; Stop 08/22/19 at 14:31; Status DC Hydromorphone HCl (Dilaudid) 1 mg PRN Q4HRS PRN IVP PAIN Last administered on 09/05/19at 06:25; Start 08/22/19 at 19:00; Stop 09/05/19 at 17:10; Status DC Potassium Chloride 75 meq/ Magnesium Sulfate 15 meq/Calcium Gluconate 8 meq/ Multivitamins 10 ml/Chromium/ Copper/Manganese/ Seleni/Zn 0.5 ml/ Insulin Human Regular 20 unit/ Total Parenteral Nutrition/Amino Acids/Dextrose/ Fat Emulsion Intravenous 1,920 ml @ 80 mls/hr TPN CONT IV Last administered on 08/23/19at 22:10; Start 08/23/19 at 22:00; Stop 08/24/19 at 21:59; Status DC Lidocaine HCl (Buffered Lidocaine 1%) 3 ml STK-MED ONCE .ROUTE ; Start 08/24/19 at 11:31; Stop 08/24/19 at 11:31; Status DC Lidocaine HCl (Buffered Lidocaine 1%) 3 ml STK-MED ONCE .ROUTE ; Start 08/24/19 at 12:28; Stop 08/24/19 at 12:29; Status DC Lidocaine HCl (Buffered Lidocaine 1%) 6 ml 1X ONCE INJ Last administered on 08/24/19at 12:53; Start 08/24/19 at 12:45; Stop 08/24/19 at 12:46; Status DC Potassium Chloride 75 meq/ Magnesium Sulfate 15 meq/Calcium Gluconate 8 meq/ M ultivitamins 10 ml/Chromium/ Copper/Manganese/ Seleni/Zn 0.5 ml/ Insulin Human Regular 20 unit/ Total Parenteral Nutrition/Amino Acids/Dextrose/ Fat Emulsion Intravenous 1,920 ml @ 80 mls/hr TPN CONT IV Last administered on 08/24/19at 22:00; Start 08/24/19 at 22:00; Stop 08/25/19 at 21:59; Status DC Potassium Chloride 75 meq/ Magnesium Sulfate 15 meq/Calcium Gluconate 8 meq/ Multivitamins 10 ml/Chromium/ Copper/Manganese/ Seleni/Zn 0.5 ml/ Insulin Human Regular 15 unit/ Total Parenteral Nutrition/Amino Acids/Dextrose/ Fat Emulsion Intravenous 1,920 ml @ 80 mls/hr TPN CONT IV Last administered on 08/25/19at 22:28; Start 08/25/19 at 22:00; Stop 08/26/19 at 21:59; Status DC Vecuronium [place] (Norcuron Bolus) 6 mg PRN Q6HRS PRN IV VENT ASYNCHRONY; Start 08/25/19 at 19:15; Stop 08/25/19 at 19:35; Status DC Bumetanide (Bumex) 2 mg 1X ONCE IV Last administered on 08/25/19at 22:09; Start 08/25/19 at 19:45; Stop 08/25/19 at 19:46; Status DC Lidocaine HCl (Buffered Lidocaine 1%) 3 ml STK-MED ONCE .ROUTE ; Start 08/26/19 at 07:59; Stop 08/26/19 at 07:59; Status DC Midazolam HCl (Versed) 5 mg STK-MED ONCE .ROUTE ; Start 08/26/19 at 08:36; Stop 08/26/19 at 08:36; Status DC Fentanyl Citrate (Fentanyl 5ml Vial) 250 mcg STK-MED ONCE .ROUTE ; Start 08/26/19 at 08:36; Stop 08/26/19 at 08:37; Status DC Lidocaine HCl (Buffered Lidocaine 1%) 3 ml 1X ONCE IJ Last administered on 08/26/19at 09:30; Start 08/26/19 at 09:15; Stop 08/26/19 at 09:16; Status DC Midazolam HCl (Versed) 5 mg 1X ONCE IV Last administered on 08/26/19at 09:30; Start 08/26/19 at 09:15; Stop 08/26/19 at 09:16; Status DC Fentanyl Citrate (Fentanyl 5ml Vial) 250 mcg 1X ONCE IV Last administered on 08/26/19at 09:30; Start 08/26/19 at 09:15; Stop 08/26/19 at 09:16; Status DC Bumetanide (Bumex) 2 mg DAILY IV Last administered on 09/05/19at 08:07; Start 08/26/19 at 10:00; Stop 09/05/19 at 17:15; Status DC Potassium Chloride 75 meq/ Magnesium Sulfate 15 meq/ Multivitamins 10 ml/Chromium/ Copper/Manganese/ Seleni/Zn 0.5 ml/ Insulin Human Regular 15 unit/ Total Parenteral Nutrition/Amino Acids/Dextrose/ Fat Emulsion Intravenous 1,920 ml @ 80 mls/hr TPN CONT IV Last administered on 08/26/19at 21:59; Start 08/26/19 at 22:00; Stop 08/27/19 at 21:59; Status DC Metoclopramide HCl (Reglan Vial) 10 mg PRN Q3HRS PRN IVP NAUSEA/VOMITING-3rd choice Last administered on 09/01/19at 04:25; Start 08/27/19 at 16:45 Potassium Chloride 75 meq/ Magnesium Sulfate 15 meq/ Multivitamins 10 ml/Chromium/ Copper/Manganese/ Seleni/Zn 0.5 ml/ Insulin Human Regular 15 unit/ Total Parenteral Nutrition/Amino Acids/Dextrose/ Fat Emulsion Intravenous 1,920 ml @ 80 mls/hr TPN CONT IV Last administered on 08/27/19at 22:41; Start 08/27/19 at 22:00; Stop 08/28/19 at 21:59; Status DC Magnesium Sulfate 50 ml @ 25 mls/hr 1X ONCE IV Last administered on 08/28/19at 10:44; Start 08/28/19 at 09:00; Stop 08/28/19 at 10:59; Status DC Potassium Chloride/Water 100 ml @ 100 mls/hr 1X ONCE IV Last administered on 08/28/19at 09:37; Start 08/28/19 at 09:00; Stop 08/28/19 at 09:59; Status DC Duloxetine HCl (Cymbalta) 30 mg DAILY PO Last administered on 08/29/19at 09:48; Start 08/28/19 at 14:00; Stop 08/31/19 at 10:25; Status DC Potassium Chloride 80 meq/ Magnesium Sulfate 20 meq/ Multivitamins 10 ml/Chromium/ Copper/Manganese/ Seleni/Zn 0.5 ml/ Insulin Human Regular 15 unit/ Total Parenteral Nutrition/Amino Acids/Dextrose/ Fat Emulsion Intravenous 1,920 ml @ 80 mls/hr TPN CONT IV Last administered on 08/28/19at 21:42; Start 08/28/19 at 22:00; Stop 08/29/19 at 21:59; Status DC Potassium Chloride 80 meq/ Magnesium Sulfate 20 meq/ Multivitamins 10 ml/Chromium/ Copper/Manganese/ Seleni/Zn 0.5 ml/ Insulin Human Regular 15 unit/ Total Parenteral Nutrition/Amino Acids/Dextrose/ Fat Emulsion Intravenous 1,920 ml @ 80 mls/hr TPN CONT IV Last administered on 08/29/19at 22:20; Start 08/18 05/09 at 22:00; Stop 08/30/19 at 21:59; Status DC Lidocaine HCl (Buffered Lidocaine 1%) 3 ml STK-MED ONCE .ROUTE ; Start 08/30/19 at 09:54; Stop 08/30/19 at 09:55; Status DC Hydromorphone HCl (Dilaudid [employer]) 12 mg STK-MED ONCE IV ; Start 08/19/19 at 15:50; Stop 08/30/19 at 11:24; Status DC Potassium Chloride 80 meq/ Magnesium Sulfate 20 meq/ Multivitamins 10 ml/Chromium/ Copper/Manganese/ Seleni/Zn 0.5 ml/ Insulin Human Regular 15 unit/ Total Parenteral Nutrition/Amino Acids/Dextrose/ Fat Emulsion Intravenous 1,920 ml @ 80 mls/hr TPN CONT IV Last administered on 08/30/19at 21:40; Start 08/30/19 at 22:00; Stop 08/31/19 at 21:59; Status DC Lidocaine HCl (Buffered Lidocaine 1%) 6 ml 1X ONCE INJ Last administered on 08/30/19at 14:15; Start 08/30/19 at 14:15; Stop 08/30/19 at 14:16; Status DC Potassium Chloride 80 meq/ Magnesium Sulfate 20 meq/ Multivitamins 10 ml/Chromium/ Copper/Manganese/ Seleni/Zn 1 ml/ Insulin Human Regular 15 unit/ Total Parenteral Nutrition/Amino Acids/Dextrose/ Fat Emulsion Intravenous 1,920 ml @ 80 mls/hr TPN CONT IV Last administered on 08/31/19at 22:04; Start 08/31/19 at 22:00; Stop 09/01/19 at 21:59; Status DC Potassium Chloride/Water 100 ml @ 100 mls/hr 1X ONCE IV Last administered on 09/01/19at 11:34; Start 09/01/19 at 11:00; Stop 09/01/19 at 11:59; Status DC Potassium Chloride 90 meq/ Magnesium Sulfate 20 meq/ Multivitamins 10 ml/Chromium/ Copper/Manganese/ Seleni/Zn 1 ml/ Insulin Human Regular 15 unit/ Total Parenteral Nutrition/Amino Acids/Dextrose/ Fat Emulsion Intravenous 1,920 ml @ 80 mls/hr TPN CONT IV Last administered on 09/01/19at 22:57; Start 09/01/19 at 22:00; Stop 09/02/19 at 21:59; Status DC Potassium Chloride 90 meq/ Magnesium Sulfate 20 meq/ Multivitamins 10 ml/Chromium/ Copper/Manganese/ Seleni/Zn 1 ml/ Insulin Human Regular 15 unit/ Total Parenteral Nutrition/Amino Acids/Dextrose/ Fat Emulsion Intravenous 1,920 ml @ 80 mls/hr TPN CONT IV Last administered on 09/02/19at 22:48; Start 09/02/19 at 22:00; Stop 09/03/19 at 21:59; Status DC Potassium Chloride 90 meq/ Magnesium Sulfate 20 meq/ Multivitamins 10 ml/Chromium/ Copper/Manganese/ Seleni/Zn 1 ml/ Insulin Human Regular 15 unit/ Total Parenteral Nutrition/Amino Acids/Dextrose/ Fat Emulsion Intravenous 1,890 ml @ 78.75 mls/ hr TPN CONT IV Last administered on 09/03/19at 22:15; Start 09/03/19 at 22:00; Stop 09/04/19 at 21:59; Status DC Linezolid/Dextrose 300 ml @ 300 mls/hr Q12HR IV Last administered on 09/06/19at 21:08; Start 09/04/19 at 09:00; Stop 09/07/19 at 08:11; Status DC Daptomycin 450 mg/ Sodium Chloride 50 ml @ 100 mls/hr Q24H IV Last administered on 09/07/19at 09:25; Start 09/04/19 at 09:00; Stop 09/08/19 at 08:30; Status DC Potassium Chloride 90 meq/ Magnesium Sulfate 20 meq/ Multivitamins 10 ml/Chromium/ Copper/Manganese/ Seleni/Zn 1 ml/ Insulin Human Regular 15 unit/ Total Parenteral Nutrition/Amino Acids/Dextrose/ Fat Emulsion Intravenous 1,890 ml @ 78.75 mls/ hr TPN CONT IV Last administered on 09/04/19at 21:34; Start 09/04/19 at 22:00; Stop 09/05/19 at 21:59; Status DC Lorazepam (Ativan Inj) 2 mg STK-MED ONCE .ROUTE ; Start 09/04/19 at 14:58; Stop 09/04/19 at 14:58; Status DC Metoprolol Tartrate (Lopressor Vial) 5 mg 1X ONCE IVP Last administered on 09/04/19at 15:31; Start 09/04/19 at 15:15; Stop 09/04/19 at 15:16; Status DC Lorazepam (Ativan Inj) 2 mg 1X ONCE IVP Last administered on 09/04/19at 15:30; Start 09/04/19 at 15:15; Stop 09/04/19 at 15:16; Status DC Enoxaparin Sodium (Lovenox 40mg Syringe) 40 mg Q24H SQ Last administered on 09/23/19at 17:44; Start 09/04/19 at 17:00; Stop 09/25/19 at 06:50; Status DC Lorazepam (Ativan Inj) 1 mg PRN Q4HRS PRN IVP ANXIETY / AGITATION MILD-MOD Last administered on 09/18/19at 15:55; Start 09/04/19 at 19:15; Stop 09/20/19 at 11:45; Status DC Lorazepam (Ativan Inj) 2 mg PRN Q4HRS PRN IVP ANXIETY / AGITATION SEVERE Last administered on 09/19/19at 07:55; Start 09/04/19 at 19:15; Stop 09/20/19 at 11:45; Status DC Fentanyl Citrate (Fentanyl 2ml Vial) 50 mcg PRN Q4HRS PRN IVP SEVERE PAIN Last administered on 10/01/19at 05:15; Start 09/05/19 at 13:15; Stop 10/02/19 at 09:29; Status DC Fentanyl Citrate (Fentanyl 2ml Vial) 25 mcg PRN Q4HRS PRN IVP MODERATE PAIN Last administered on 10/01/19at 00:27; Start 09/05/19 at 13:15; Stop 10/02/19 at 09:30; Status DC Potassium Chloride 90 meq/ Magnesium Sulfate 20 meq/ Multivitamins 10 ml/Chromium/ Copper/Manganese/ Seleni/Zn 1 ml/ Insulin Human Regular 15 unit/ Total Parenteral Nutrition/Amino Acids/Dextrose/ Fat Emulsion Intravenous 1,890 ml @ 78.75 mls/ hr TPN CONT IV Last administered on 09/05/19at 22:18; Start 09/05/19 at 22:00; Stop 09/06/19 at 21:59; Status DC Furosemide (Lasix) 40 mg 1X ONCE IVP Last administered on 09/05/19at 21:51; Start 09/05/19 at 21:45; Stop 09/05/19 at 21:48; Status DC Albumin Human 100 ml @ 100 mls/hr 1X PRN PRN IV SEE COMMENTS; Start 09/06/19 at 01:30 Furosemide (Lasix) 40 mg [id number] IVP Last administered on 09/21/19at 08:04; Start 09/06/19 at 14:00; Stop 09/21/19 at 13:07; Status DC Potassium Chloride 90 meq/ Magnesium Sulfate 20 meq/ Multivitamins 10 ml/Chromium/ Copper/Manganese/ Seleni/Zn 1 ml/ Insulin Human Regular 15 unit/ Total Parenteral Nutrition/Amino Acids/Dextrose/ Fat Emulsion Intravenous 1,800 ml @ 75 mls/hr TPN CONT IV Last administered on 09/06/19at 22:31; Start 09/06/19 at 22:00; Stop 09/07/19 at 21:59; Status DC Potassium Chloride 90 meq/ Magnesium Sulfate 20 meq/ Multivitamins 10 ml/Chromium/ Copper/Manganese/ Seleni/Zn 1 ml/ Insulin Human Regular 15 unit/ Total Parenteral Nutrition/Amino Acids/Dextrose/ Fat Emulsion Intravenous 1,800 ml @ 75 mls/hr TPN CONT IV Last administered on 09/07/19at 22:28; Start 09/07/19 at 22:00; Stop 09/08/19 at 21:59; Status DC Potassium Chloride 110 meq/ Magnesium Sulfate 20 meq/ Multivitamins 10 ml/Chromium/ Copper/Manganese/ Seleni/Zn 1 ml/ Insulin Human Regular 15 unit/ Total Parenteral Nutrition/Amino Acids/Dextrose/ Fat Emulsion Intravenous 1,800 ml @ 75 mls/hr TPN CONT IV Last administered on 09/08/19at 22:01; Start 09/08/19 at 22:00; Stop 09/09/19 at 21:59; Status DC Saliva Substitute (Biotene Moisturizing Mouth) 2 spray PRN Q15MIN PRN PO DRY MOUTH; Start 09/08/19 at 11:00 Potassium Chloride 110 meq/ Magnesium Sulfate 20 meq/ Multivitamins 10 ml/Chromium/ Copper/Manganese/ Seleni/Zn 1 ml/ Insulin Human Regular 15 unit/ Total Parenteral Nutrition/Amino Acids/Dextrose/ Fat Emulsion Intravenous 1,800 ml @ 75 mls/hr TPN CONT IV Last administered on 09/09/19at 22:21; Start 09/09/19 at 22:00; Stop 09/10/19 at 21:59; Status DC Potassium Chloride 110 meq/ Magnesium Sulfate 20 meq/ Multivitamins 10 ml/Chromium/ Copper/Manganese/ Seleni/Zn 1 ml/ Insulin Human Regular 15 unit/ Total Parenteral Nutrition/Amino Acids/Dextrose/ Fat Emulsion Intravenous 1,800 ml @ 75 mls/hr TPN CONT IV Last administered on 09/10/19at 22:04; Start 09/10/19 at 22:00; Stop 09/11/19 at 21:59; Status DC Potassium Chloride 110 meq/ Magnesium Sulfate 20 meq/ Multivitamins 10 ml/Chromium/ Copper/Manganese/ Seleni/Zn 1 ml/ Insulin Human Regular 15 unit/ Total Parenteral Nutrition/Amino Acids/Dextrose/ Fat Emulsion Intravenous 1,800 ml @ 75 mls/hr TPN CONT IV Last administered on 09/11/19at 22:48; Start 09/11/19 at 22:00; Stop 09/12/19 at 21:59; Status DC Potassium Chloride 70 meq/ Magnesium Sulfate 20 meq/ Multivitamins 10 ml/Chromium/ Copper/Manganese/ Seleni/Zn 1 ml/ Insulin Human Regular 15 unit/ Total Parenteral Nutrition/Amino Acids/Dextrose/ Fat Emulsion Intravenous 1,800 ml @ 75 mls/hr TPN CONT IV Last administered on 09/12/19at 21:39; Start 09/12/19 at 22:00; Stop 09/13/19 at 21:59; Status DC Meropenem 500 mg/ Sodium Chloride 50 ml @ 100 mls/hr Q6HRS IV Last administered on 09/14/19at 06:02; Start 09/12/19 at 18:00; Stop 09/14/19 at 09:59; Status DC Barium Sulfate (Varibar Thin Liquid Apple) 148 gm 1X ONCE PO ; Start 09/13/19 at 11:45; Stop 09/13/19 at 11:49; Status DC Potassium Chloride 70 meq/ Magnesium Sulfate 20 meq/ Multivitamins 10 ml/Chromium/ Copper/Manganese/ Seleni/Zn 1 ml/ Insulin Human Regular 15 unit/ Total Parenteral Nutrition/Amino Acids/Dextrose/ Fat Emulsion Intravenous 1,800 ml @ 75 mls/hr TPN CONT IV Last administered on 09/13/19at 22:27; Start 09/13/19 at 22:00; Stop 09/14/19 at 21:59; Status DC Piperacillin Sod/ Tazobactam Sod 3.375 gm/Sodium Chloride 50 ml @ 100 mls/hr Q6HRS IV Last administered on 09/22/19at 06:10; Start 09/14/19 at 12:00; Stop 09/22/19 at 07:26; Status DC Potassium Chloride 70 meq/ Magnesium Sulfate 20 meq/ Multivitamins 10 ml/Chromium/ Copper/Manganese/ Seleni/Zn 1 ml/ Insulin Human Regular 15 unit/ Total Parenteral Nutrition/Amino Acids/Dextrose/ Fat Emulsion Intravenous 1,800 ml @ 75 mls/hr TPN CONT IV Last administered on 09/14/19at 22:03; Start 09/14/19 at 22:00; Stop 09/15/19 at 21:59; Status DC Potassium Chloride 70 meq/ Magnesium Sulfate 20 meq/ Multivitamins 10 ml/Chromium/ Copper/Manganese/ Seleni/Zn 1 ml/ Insulin Human Regular 15 unit/ Total Parenteral Nutrition/Amino Acids/Dextrose/ Fat Emulsion Intravenous 1,800 ml @ 75 mls/hr TPN CONT IV Last administered on 09/15/19at 22:33; Start 09/15/19 at 22:00; Stop 09/16/19 at 21:59; Status DC Potassium Chloride 70 meq/ Magnesium Sulfate 20 meq/ Multivitamins 10 ml/Chromium/ Copper/Manganese/ Seleni/Zn 1 ml/ Insulin Human Regular 15 unit/ Total Parenteral Nutrition/Amino Acids/Dextrose/ Fat Emulsion Intravenous 1,800 ml @ 75 mls/hr TPN CONT IV Last administered on 09/16/19at 23:13; Start 09/16/19 at 22:00; Stop 09/17/19 at 21:59; Status DC Potassium Chloride 80 meq/ Magnesium Sulfate 20 meq/ Multivitamins 10 ml/Chromium/ Copper/Manganese/ Seleni/Zn 1 ml/ Insulin Human Regular 15 unit/ Total Parenteral Nutrition/Amino Acids/Dextrose/ Fat Emulsion Intravenous 1,800 ml @ 75 mls/hr TPN CONT IV Last administered on 09/17/19at 22:30; Start 09/17/19 at 22:00; Stop 09/18/19 at 21:59; Status DC Potassium Chloride 80 meq/ Magnesium Sulfate 20 meq/ Multivitamins 10 ml/Chromium/ Copper/Manganese/ Seleni/Zn 1 ml/ Insulin Human Regular 15 unit/ Total Parenteral Nutrition/Amino Acids/Dextrose/ Fat Emulsion Intravenous 1,800 ml @ 75 mls/hr TPN CONT IV Last administered on 09/18/19at 21:54; Start 09/18/19 at 22:00; Stop 09/19/19 at 21:59; Status DC Potassium Chloride/Water 100 ml @ 100 mls/hr 1X ONCE IV Last administered on 09/19/19at 10:15; Start 09/19/19 at 10:00; Stop 09/19/19 at 10:59; Status DC Potassium Chloride 90 meq/ Magnesium Sulfate 20 meq/ Multivitamins 10 ml/Chromium/ Copper/Manganese/ Seleni/Zn 1 ml/ Insulin Human Regular 20 unit/ Total Parenteral Nutrition/Amino Acids/Dextrose/ Fat Emulsion Intravenous 1,800 ml @ 75 mls/hr TPN CONT IV Last administered on 09/19/19at 22:28; Start 09/19/19 at 22:00; Stop 09/20/19 at 21:59; Status DC Potassium Chloride 90 meq/ Magnesium Sulfate 20 meq/ Multivitamins 10 ml/Chromium/ Copper/Manganese/ Seleni/Zn 1 ml/ Insulin Human Regular 20 unit/ Total Parenteral Nutrition/Amino Acids/Dextrose/ Fat Emulsion Intravenous 1,800 ml @ 75 mls/hr TPN CONT IV Last administered on 09/20/19at 22:08; Start 09/20/19 at 22:00; Stop 09/21/19 at 21:59; Status DC Lorazepam (Ativan Inj) 0.25 mg PRN Q4HRS PRN IVP ANXIETY / AGITATION Last administered on 11/07/19at 03:28; Start 09/21/19 at 07:30 Potassium Chloride 90 meq/ Magnesium Sulfate 20 meq/ Multivitamins 10 ml/Chromium/ Copper/Manganese/ Seleni/Zn 1 ml/ Insulin Human Regular 20 unit/ Total Parenteral Nutrition/Amino Acids/Dextrose/ Fat Emulsion Intravenous 1,800 ml @ 75 mls/hr TPN CONT IV Last administered on 09/21/19at 23:13; Start 09/21/19 at 22:00; Stop 09/22/19 at 21:59; Status DC Furosemide (Lasix) 40 mg DAILY IVP Last administered on 09/23/19at 11:14; Start 09/21/19 at 13:30; Stop 09/25/19 at 09:12; Status DC Fluoxetine HCl (PROzac) 20 mg QHS PEG Last administered on 11/06/19at 21:22; Start 09/22/19 at 21:00 Fentanyl (Duragesic 50mcg/ Hr Patch) 1 patch Q72H TD Last administered on 09/22/19at 21:22; Start 09/22/19 at 21:00; Stop 10/01/19 at 12:00; Status DC Potassium Chloride 40 meq/ Potassium Acetate 60 meq/Magnesium Sulfate 10 meq/ Multivitamins 10 ml/Chromium/ Copper/Manganese/ Seleni/Zn 1 ml/ Insulin Human Regular 20 unit/ Total Parenteral Nutrition/Amino Acids/Dextrose/ Fat Emulsion Intravenous 1,800 ml @ 75 mls/hr TPN CONT IV Last administered on 09/23/19at 00:03; Start 09/22/19 at 22:00; Stop 09/23/19 at 21:59; Status DC Potassium Acetate 80 meq/Magnesium Sulfate 5 meq/ Multivitamins 10 ml/Chromium/ Copper/Manganese/ Seleni/Zn 1 ml/ Insulin Human Regular 20 unit/ Total Parenteral Nutrition/Amino Acids/Dextrose/ Fat Emulsion Intravenous 1,920 ml @ 80 mls/hr TPN CONT IV Last administered on 09/23/19at 21:59; Start 09/23/19 at 22:00; Stop 09/24/19 at 21:59; Status DC Potassium Acetate 60 meq/Magnesium Sulfate 5 meq/ Multivitamins 10 ml/Chromium/ Copper/Manganese/ Seleni/Zn 1 ml/ Insulin Human Regular 30 unit/ Total Parenteral Nutrition/Amino Acids/Dextrose/ Fat Emulsion Intravenous 1,920 ml @ 80 mls/hr TPN CONT IV Last administered on 09/24/19at 21:54; Start 09/24/19 at 22:00; Stop 09/25/19 at 21:59; Status DC Norepinephrine Bitartrate 8 mg/ Dextrose 258 ml @ 13.332 mls/ hr CONT PRN IV PER PROTOCOL Last administered on 10/20/19at 09:09; Start 09/25/19 at 06:30 Albumin Human 500 ml @ 125 mls/hr 1X ONCE IV Last administered on 09/25/19at 08:10; Start 09/25/19 at 08:15; Stop 09/25/19 at 12:14; Status DC Potassium Acetate 40 meq/Magnesium Sulfate 5 meq/ Multivitamins 10 ml/Chromium/ Copper/Manganese/ Seleni/Zn 1 ml/ Insulin Human Regular 30 unit/ Total Parenteral Nutrition/Amino Acids/Dextrose/ Fat Emulsion Intravenous 1,920 ml @ 80 mls/hr TPN CONT IV Last administered on 09/25/19at 22:23; Start 09/25/19 at 22:00; Stop 09/26/19 at 21:59; Status DC Meropenem 1 gm/ Sodium Chloride 100 ml @ 200 mls/hr Q8HRS IV ; Start 09/25/19 at 14:00; Status Cancel Meropenem 1 gm/ Sodium Chloride 100 ml @ 200 mls/hr Q8HRS IV Last administered on 09/25/19at 11:04; Start 09/25/19 at 10:00; Stop 09/25/19 at 13:00; Status DC Meropenem 1 gm/ Sodium Chloride 100 ml @ 200 mls/hr Q12HR IV Last administered on 10/13/19at 08:27; Start 09/25/19 at 21:00; Stop 10/13/19 at 08:56; Status DC Sodium Chloride 1,000 ml @ 1,000 mls/hr 1X ONCE IV Last administered on 09/25/19at 11:06; Start 09/25/19 at 10:45; Stop 09/25/19 at 11:44; Status DC Micafungin Sodium 100 mg/Dextrose 100 ml @ 100 mls/hr Q24H IV Last adminis tered on 10/12/19at 12:34; Start 09/25/19 at 11:00; Stop 10/13/19 at 08:56; Status DC Daptomycin 410 mg/ Sodium Chloride 50 ml @ 100 mls/hr Q24H IV Last administered on 09/27/19at 13:33; Start 09/25/19 at 14:00; Stop 09/28/19 at 08:30; Status DC Midazolam HCl (Versed) 2 mg STK-MED ONCE .ROUTE ; Start 09/25/19 at 14:47; Stop 09/25/19 at 14:48; Status DC Fentanyl Citrate (Fentanyl 2ml Vial) 100 mcg STK-MED ONCE .ROUTE ; Start 09/25/19 at 14:47; Stop 09/25/19 at 14:48; Status DC Flumazenil (Romazicon) 0.5 mg STK-MED ONCE IV ; Start 09/25/19 at 14:48; Stop 09/25/19 at 14:48; Status DC Naloxone HCl (Narcan) 0.4 mg STK-MED ONCE .ROUTE ; Start 09/25/19 at 14:48; Stop 09/25/19 at 14:48; Status DC Lidocaine HCl (Lidocaine 1% 20ml Vial) 20 ml STK-MED ONCE .ROUTE ; Start 09/25/19 at 14:48; Stop 09/25/19 at 14:48; Status DC Midazolam HCl (Versed) 2 mg 1X ONCE IV Last administered on 09/25/19at 15:28; Start 09/25/19 at 15:00; Stop 09/25/19 at 15:01; Status DC Fentanyl Citrate (Fentanyl 2ml Vial) 100 mcg 1X ONCE IV Last administered on 09/25/19at 15:28; Start 09/25/19 at 15:00; Stop 09/25/19 at 15:01; Status DC Lidocaine HCl (Lidocaine 1% 20ml Vial) 20 ml 1X ONCE INJ Last administered on 09/25/19at 15:30; Start 09/25/19 at 15:00; Stop 09/25/19 at 15:01; Status DC Sodium Chloride 1,000 ml @ 100 mls/hr Q10H IV Last administered on 10/04/19at 07:30; Start 09/25/19 at 20:00; Stop 10/04/19 at 11:26; Status DC Sodium Bicarbonate (Sodium Bicarb Adult 8.4% Syr) 50 meq 1X ONCE IV Last administered on 09/25/19at 21:47; Start 09/25/19 at 22:00; Stop 09/25/19 at 22:01; Status DC Potassium Acetate 40 meq/Magnesium Sulfate 5 meq/ Multivitamins 10 ml/Chromium/ Copper/Manganese/ Seleni/Zn 1 ml/ Insulin Human Regular 30 unit/ Total Parenteral Nutrition/Amino Acids/Dextrose/ Fat Emulsion Intravenous 1,920 ml @ 80 mls/hr TPN CONT IV Last administered on 09/26/19at 22:28; Start 09/26/19 at 22:00; Stop 09/27/19 at 21:59; Status DC Sodium Chloride 500 ml @ 500 mls/hr 1X ONCE IV Last administered on 09/27/19at 06:39; Start 09/27/19 at 06:45; Stop 09/27/19 at 07:44; Status DC Potassium Acetate 40 meq/Magnesium Sulfate 5 meq/ Multivitamins 10 ml/Chromium/ Copper/Manganese/ Seleni/Zn 1 ml/ Insulin Human Regular 30 unit/ Total Parenteral Nutrition/Amino Acids/Dextrose/ Fat Emulsion Intravenous 1,920 ml @ 80 mls/hr TPN CONT IV Last administered on 09/27/19at 22:03; Start 09/27/19 at 22:00; Stop 09/28/19 at 21:59; Status DC Metoprolol Tartrate (Lopressor Vial) 5 mg PRN Q6HRS PRN IVP HYPERTENSION Last administered on 11/05/19at 17:50; Start 09/28/19 at 09:00 Potassium Acetate 40 meq/Magnesium Sulfate 5 meq/ Multivitamins 10 ml/Chromium/ Copper/Manganese/ Seleni/Zn 1 ml/ Insulin Human Regular 30 unit/ Total Parenteral Nutrition/Amino Acids/Dextrose/ Fat Emulsion Intravenous 1,920 ml @ 80 mls/hr TPN CONT IV Last administered on 09/28/19at 21:26; Start 09/28/19 at 22:00; Stop 09/29/19 at 21:59; Status DC Potassium Acetate 40 meq/Magnesium Sulfate 5 meq/ Multivitamins 10 ml/Chromium/ Copper/Manganese/ Seleni/Zn 1 ml/ Insulin Human Regular 30 unit/ Total Parenteral Nutrition/Amino Acids/Dextrose/ Fat Emulsion Intravenous 1,920 ml @ 80 mls/hr TPN CONT IV Last administered on 09/29/19at 23:23; Start 09/29/19 at 22:00; Stop 09/30/19 at 21:59; Status DC Potassium Acetate 40 meq/Magnesium Sulfate 5 meq/ Multivitamins 10 ml/Chromium/ Copper/Manganese/ Seleni/Zn 1 ml/ Insulin Human Regular 30 unit/ Total Parenteral Nutrition/Amino Acids/Dextrose/ Fat Emulsion Intravenous 1,920 ml @ 80 mls/hr TPN CONT IV Last administered on 09/30/19at 21:35; Start 09/30/19 at 22:00; Stop 10/01/19 at 21:59; Status DC Furosemide (Lasix) 20 mg 1X ONCE IVP Last administered on 10/01/19at 06:26; Start 10/01/19 at 06:15; Stop 10/01/19 at 06:16; Status DC Methylprednisolone Sodium Succinate (SOLU-Medrol 125MG VIAL) 125 mg 1X ONCE IV Last administered on 10/01/19at 06:26; Start 10/01/19 at 06:15; Stop 10/01/19 at 06:16; Status DC Albuterol/ Ipratropium (Duoneb) 3 ml Q4HRS NEB Last administered on 11/07/19at 08:49; Start 10/01/19 at 08:00 Fentanyl Citrate 30 ml @ 0 mls/hr CONT PRN IV SEE PROTOCOL Last administered on 10/22/19at 08:03; Start 10/01/19 at 06:00; Stop 10/22/19 at 12:42; Status DC Propofol 100 ml @ 0 mls/hr CONT PRN IV SEE PROTOCOL Last administered on 10/08/19at 23:50; Start 10/01/19 at 06:00 Fentanyl Citrate (Fentanyl 2ml Vial) 25 mcg PRN Q1HR PRN IV SEE COMMENTS Last administered on 11/06/19at 20:04; Start 10/01/19 at 06:00 Fentanyl Citrate (Fentanyl 2ml Vial) 50 mcg PRN Q1HR PRN IV SEE COMMENTS Last administered on 10/30/19at 18:02; Start 10/01/19 at 06:00 Chlorhexidine Gluconate (Peridex) 15 ml BID MM ; Start 10/01/19 at 09:00; Stop 10/01/19 at 07:58; Status DC Potassium Acetate 40 meq/Magnesium Sulfate 5 meq/ Multivitamins 10 ml/Chromium/ Copper/Manganese/ Seleni/Zn 1 ml/ Insulin Human Regular 30 unit/ Total Parenteral Nutrition/Amino Acids/Dextrose/ Fat Emulsion Intravenous 1,920 ml @ 80 mls/hr TPN CONT IV Last administered on 10/01/19at 21:19; Start 10/01/19 at 22:00; Stop 10/02/19 at 21:59; Status DC Acetylcysteine (Mucomyst 20% Resp Treatment) 600 mg BID NEB Last administered on 10/07/19at 09:33; Start 10/01/19 at 21:00; Stop 10/07/19 at 10:39; Status DC Magnesium Sulfate 100 ml @ 25 mls/hr 1X ONCE IV Last administered on 10/01/19at 15:48; Start 10/01/19 at 15:45; Stop 10/01/19 at 19:44; Status DC Potassium Acetate 40 meq/Magnesium Sulfate 5 meq/ Multivitamins 10 ml/Chromium/ Copper/Manganese/ Seleni/Zn 1 ml/ Insulin Human Regular 30 unit/ Total Pa renteral Nutrition/Amino Acids/Dextrose/ Fat Emulsion Intravenous 1,920 ml @ 80 mls/hr TPN CONT IV Last administered on 10/02/19at 21:35; Start 10/02/19 at 22:00; Stop 10/03/19 at 21:59; Status DC Potassium Chloride/Water 100 ml @ 100 mls/hr Q1H IV Last administered on 10/03/19at 08:31; Start 10/03/19 at 07:00; Stop 10/03/19 at 08:59; Status DC Potassium Acetate 40 meq/Magnesium Sulfate 5 meq/ Multivitamins 10 ml/Chromium/ Copper/Manganese/ Seleni/Zn 1 ml/ Insulin Human Regular 30 unit/ Total Parentera l Nutrition/Amino Acids/Dextrose/ Fat Emulsion Intravenous 1,920 ml @ 80 mls/hr TPN CONT IV Last administered on 10/03/19at 21:54; Start 10/03/19 at 22:00; Stop 10/04/19 at 19:34; Status DC Lidocaine HCl (Buffered Lidocaine 1%) 3 ml STK-MED ONCE .ROUTE ; Start 10/03/19 at 12:14; Stop 10/03/19 at 12:14; Status DC Lidocaine HCl (Buffered Lidocaine 1%) 3 ml 1X ONCE IJ Last administered on 10/03/19at 13:11; Start 10/03/19 at 13:00; Stop 10/03/19 at 13:01; Status DC Magnesium Sulfate 50 ml @ 25 mls/hr 1X ONCE IV ; Start 10/04/19 at 08:15; Stop 10/04/19 at 10:14; Status DC Potassium Acetate 40 meq/Magnesium Sulfate 10 meq/ Multivitamins 10 ml/Chromium/ Copper/Manganese/ Seleni/Zn 1 ml/ Insulin Human Regular 20 unit/ Total Parenteral Nutrition/Amino Acids/Dextrose/ Fat Emulsion Intravenous 1,920 ml @ 80 mls/hr TPN CONT IV Last administered on 10/04/19at 21:32; Start 10/04/19 at 22:00; Stop 10/05/19 at 21:59; Status DC Potassium Chloride/Water 100 ml @ 100 mls/hr Q1H IV Last administered on 10/05/19at 09:12; Start 10/05/19 at 08:00; Stop 10/05/19 at 09:59; Status DC Alteplase, Recombinant (Cathflo For Central Catheter Clearance) 4 mg 1X ONCE INT CAT ; Start 10/05/19 at 09:15; Stop 10/05/19 at 09:16; Status UNV Alteplase, Recombinant (Cathflo For Central Catheter Clearance) 4 mg 1X ONCE INT CAT ; Start 10/05/19 at 09:15; Stop 10/05/19 at 09:16; Status UNV Alteplase, Recombinant (Cathflo For Central Catheter Clearance) 4 mg 1X ONCE INT CAT ; Start 10/05/19 at 09:15; Stop 10/05/19 at 09:16; Status UNV Alteplase, Recombinant 4 mg/ Sodium Chloride 20 ml @ 20 mls/hr 1X ONCE IV Last administered on 10/05/19at 10:10; Start 10/05/19 at 10:00; Stop 10/05/19 at 10:59; Status DC Alteplase, Recombinant 4 mg/ Sodium Chloride 20 ml @ 20 mls/hr 1X ONCE IV Last administered on 10/05/19at 10:09; Start 10/05/19 at 10:00; Stop 10/05/19 at 10:59; Status DC Alteplase, Recombinant 4 mg/ Sodium Chloride 20 ml @ 20 mls/hr 1X ONCE IV Last administered on 10/05/19at 10:09; Start 10/05/19 at 10:00; Stop 10/05/19 at 10:59; Status DC Potassium Acetate 60 meq/Magnesium Sulfate 10 meq/ Multivitamins 10 ml/Chromium/ Copper/Manganese/ Seleni/Zn 1 ml/ Insulin Human Regular 20 unit/ Total Parenteral Nutrition/Amino Acids/Dextrose/ Fat Emulsion Intravenous 1,920 ml @ 80 mls/hr TPN CONT IV Last administered on 10/05/19at 21:55; Start 10/05/19 at 22:00; Stop 10/06/19 at 21:59; Status DC Albumin Human 500 ml @ 125 mls/hr 1X ONCE IV Last administered on 10/06/19at 12:01; Start 10/06/19 at 11:15; Stop 10/06/19 at 15:14; Status DC Sodium Chloride 500 ml @ 500 mls/hr 1X ONCE IV Last administered on 10/06/19at 13:50; Start 10/06/19 at 11:15; Stop 10/06/19 at 12:14; Status DC Potassium Acetate 60 meq/Magnesium Sulfate 14 meq/ Multivitamins 10 ml/Chromium/ Copper/Manganese/ Seleni/Zn 1 ml/ Insulin Human Regular 20 unit/ Total Parenteral Nutrition/Amino Acids/Dextrose/ Fat Emulsion Intravenous 1,920 ml @ 80 mls/hr TPN CONT IV Last administered on 10/06/19at 22:26; Start 10/06/19 at 22:00; Stop 10/07/19 at 21:59; Status DC Ciprofloxacin/ Dextrose 200 ml @ 200 mls/hr Q12HR IV Last administered on 10/13/19at 08:27; Start 10/06/19 at 21:00; Stop 10/13/19 at 08:56; Status DC Albumin Human 250 ml @ 62.5 mls/hr 1X ONCE IV Last administered on 10/07/19at 11:09; Start 10/07/19 at 11:00; Stop 10/07/19 at 14:59; Status DC Furosemide (Lasix) 20 mg 1X ONCE IVP Last administered on 10/07/19at 14:52; Start 10/07/19 at 10:45; Stop 10/07/19 at 10:49; Status DC Potassium Acetate 60 meq/Magnesium Sulfate 14 meq/ Multivitamins 10 ml/Chromium/ Copper/Manganese/ Seleni/Zn 1 ml/ Insulin Human Regular 15 unit/ Total Parenteral Nutrition/Amino Acids/Dextrose/ Fat Emulsion Intravenous 1,920 ml @ 80 mls/hr TPN CONT IV Last administered on 10/07/19at 22:08; Start 10/07/19 at 22:00; Stop 10/08/19 at 21:59; Status DC Potassium Acetate 60 meq/Magnesium Sulfate 14 meq/ Multivitamins 10 ml/Chromium/ Copper/Manganese/ Seleni/Zn 1 ml/ Insulin Human Regular 15 unit/ Total Parenteral Nutrition/Amino Acids/Dextrose/ Fat Emulsion Intravenous 1,920 ml @ 80 mls/hr TPN CONT IV Last administered on 10/08/19at 22:12; Start 10/08/19 at 22:00; Stop 10/09/19 at 21:59; Status DC Potassium Acetate 60 meq/Magnesium Sulfate 14 meq/ Multivitamins 10 ml/Chromium/ Copper/Manganese/ Seleni/Zn 1 ml/ Insulin Human Regular 15 unit/ Total Parenteral Nutrition/Amino Acids/Dextrose/ Fat Emulsion Intravenous 1,920 ml @ 80 mls/hr TPN CONT IV Last administered on 10/09/19at 22:22; Start 10/09/19 at 22:00; Stop 10/10/19 at 21:59; Status DC Furosemide (Lasix) 20 mg 1X ONCE IVP Last administered on 10/10/19at 11:07; Start 10/10/19 at 10:30; Stop 10/10/19 at 10:34; Status DC Potassium Acetate 60 meq/Magnesium Sulfate 14 meq/ Multivitamins 10 ml/Chromium/ Copper/Manganese/ Seleni/Zn 1 ml/ Insulin Human Regular 15 unit/ Sodium Chloride 20 meq/Total Parenteral Nutrition/Amino Acids/Dextrose/ Fat Emulsion Intravenous 1,920 ml @ 80 mls/hr TPN CONT IV Last administered on 10/10/19at 21:54; Start 10/10/19 at 22:00; Stop 10/11/19 at 21:59; Status DC Potassium Acetate 30 meq/Magnesium Sulfate 14 meq/ Multivitamins 10 ml/Chromium/ Copper/Manganese/ Seleni/Zn 1 ml/ Insulin Human Regular 15 unit/ Sodium Chloride 20 meq/Potassium Chloride 30 meq/ Total Parenteral Nutrition/Amino Acids/Dextrose/ Fat Emulsion Intravenous 1,920 ml @ 80 mls/hr TPN CONT IV Last administered on 10/11/19at 21:46; Start 10/11/19 at 22:00; Stop 10/12/19 at 21:59; Status DC Sodium Chloride 80 meq/Potassium Chloride 30 meq/ Potassium Acetate 30 meq/Magnesium Sulfate 14 meq/ Multivitamins 10 ml/Chromium/ Copper/Manganese/ Seleni/Zn 1 ml/ Insulin Human Regular 15 unit/ Total Parenteral Nutrition/Amino Acids/Dextrose/ Fat Emulsion Intravenous 1,920 ml @ 80 mls/hr TPN CONT IV Last administered on 10/12/19at 22:33; Start 10/12/19 at 22:00; Stop 10/13/19 at 21:59; Status DC Furosemide (Lasix) 40 mg 1X ONCE IVP Last administered on 10/12/19at 16:27; Start 10/12/19 at 15:30; Stop 10/12/19 at 15:33; Status DC Albumin Human 250 ml @ 62.5 mls/hr 1X ONCE IV Last administered on 10/12/19at 16:27; Start 10/12/19 at 15:30; Stop 10/12/19 at 19:29; Status DC Sodium Chloride 80 meq/Potassium Chloride 30 meq/ Potassium Acetate 30 meq/Magnesium Sulfate 14 meq/ Multivitamins 10 ml/Chromium/ Copper/Manganese/ Seleni/Zn 1 ml/ Insulin Human Regular 15 unit/ Total Parenteral Nutrition/Amino Acids/Dextrose/ Fat Emulsion Intravenous 1,920 ml @ 80 mls/hr TPN CONT IV Last administered on 10/13/19at 22:25; Start 10/13/19 at 22:00; Stop 10/14/19 at 21:59; Status DC Sodium Chloride 80 meq/Potassium Chloride 30 meq/ Potassium Acetate 30 meq/Magnesium Sulfate 14 meq/ Multivitamins 10 ml/Chromium/ Copper/Manganese/ Seleni/Zn 1 ml/ Insulin Human Regular 15 unit/ Total Parenteral Nutrition/Amino Acids/Dextrose/ Fat Emulsion Intravenous 1,920 ml @ 80 mls/hr TPN CONT IV Last administered on 10/14/19at 21:32; Start 10/14/19 at 22:00; Stop 10/15/19 at 21:59; Status DC Sodium Chloride 80 meq/Potassium Chloride 30 meq/ Potassium Acetate 30 meq/Magnesium Sulfate 14 meq/ Multivitamins 10 ml/Chromium/ Copper/Manganese/ Seleni/Zn 1 ml/ Insulin Human Regular 15 unit/ Total Parenteral Nutrition/Amino Acids/Dextrose/ Fat Emulsion Intravenous 1,920 ml @ 80 mls/hr TPN CONT IV Last administered on 10/15/19at 21:53; Start 10/15/19 at 22:00; Stop 10/16/19 at 21:59; Status DC Acetylcysteine (Mucomyst 20% Resp Treatment) 600 mg RTBID NEB Last administered on 11/07/19at 08:49; Start 10/15/19 at 12:00 Sodium Chloride 80 meq/Potassium Chloride 30 meq/ Potassium Acetate 30 meq/Magnesium Sulfate 14 meq/ Multivitamins 10 ml/Chromium/ Copper/Manganese/ Seleni/Zn 1 ml/ Insulin Human Regular 15 unit/ Total Parenteral Nutrition/Amino Acids/Dextrose/ Fat Emulsion Intravenous 1,920 ml @ 80 mls/hr TPN CONT IV L ast administered on 10/16/19at 22:06; Start 10/16/19 at 22:00; Stop 10/17/19 at 21:59; Status DC Meropenem 500 mg/ Sodium Chloride 50 ml @ 100 mls/hr Q6HRS IV Last administered on 11/07/19at 05:56; Start 10/16/19 at 18:00 Daptomycin 500 mg/ Sodium Chloride 50 ml @ 100 mls/hr Q24H IV Last administered on 10/24/19at 21:47; Start 10/16/19 at 19:00; Stop 10/25/19 at 08:13; Status DC Sodium Chloride 80 meq/Potassium Chloride 30 meq/ Potassium Acetate 30 meq/Magnesium Sulfate 14 meq/ Multivitamins 10 ml/Chromium/ Copper/Manganese/ Seleni/Zn 1 ml/ Insulin Human Regular 15 unit/ Total Parenteral Nutrition/Amino Acids/Dextrose/ Fat Emulsion Intravenous 1,920 ml @ 80 mls/hr TPN CONT IV Last administered on 10/17/19at 22:09; Start 10/17/19 at 22:00; Stop 10/18/19 at 21:59; Status DC Heparin Sodium (Porcine) 1000 unit/Sodium Chloride 1,001 ml @ 1,001 mls/hr 1X ONCE IRR ; Start 10/18/19 at 06:00; Stop 10/18/19 at 06:59; Status DC Propofol (Diprivan) 200 mg STK-MED ONCE IV ; Start 10/18/19 at 07:44; Stop 10/18/19 at 07:44; Status DC Lidocaine HCl (Lidocaine Pf 2% Vial) 5 ml STK-MED ONCE .ROUTE ; Start 10/18/19 at 07:44; Stop 10/18/19 at 07:44; Status DC Fentanyl Citrate (Fentanyl 2ml Vial) 100 mcg STK-MED ONCE .ROUTE ; Start 10/18/19 at 07:44; Stop 10/18/19 at 07:44; Status DC Rocuronium [place] (Zemuron) 100 mg STK-MED ONCE .ROUTE ; Start 10/18/19 at 07:44; Stop 10/18/19 at 07:44; Status DC Micafungin Sodium 100 mg/Dextrose 100 ml @ 100 mls/hr Q24H IV Last administered on 11/07/19at 08:43; Start 10/18/19 at 08:30 Bupivacaine HCl/ Epinephrine Bitart (Sensorcain-Epi 0.5%-1:324651 Mpf) 30 ml STK-MED ONCE .ROUTE ; Start 10/18/19 at 08:34; Stop 10/18/19 at 08:35; Status DC Iohexol (Omnipaque 300 Mg/ml) 50 ml STK-MED ONCE .ROUTE Last administered on 10/18/19at 13:30; Start 10/18/19 at 08:35; Stop 10/18/19 at 08:35; Status DC Sodium Chloride 80 meq/Potassium Chloride 30 meq/ Potassium Acetate 30 meq/Magnesium Sulfate 14 meq/ Multivitamins 10 ml/Chromium/ Copper/Manganese/ Seleni/Zn 1 ml/ Insulin Human Regular 15 unit/ Total Parenteral Nutrition/Amino Acids/Dextrose/ Fat Emulsion Intravenous 1,920 ml @ 80 mls/hr TPN CONT IV Last administered on 10/19/19at 01:22; Start 10/18/19 at 22:00; Stop 10/19/19 at 21:59; Status DC Phenylephrine HCl (Brayden-Synephrine Inj) 10 mg STK-MED ONCE .ROUTE ; Start 10/18/19 at 10:15; Stop 10/18/19 at 10:15; Status DC Desflurane (Suprane) 90 ml STK-MED ONCE IH ; Start 10/18/19 at 10:18; Stop 10/18/19 at 10:19; Status DC Albumin Human 500 ml @ As Directed STK-MED ONCE IV ; Start 10/18/19 at 11:06; Stop 10/18/19 at 11:06; Status DC Vasopressin (Vasostrict) 20 unit STK-MED ONCE .ROUTE ; Start 10/18/19 at 12:23; Stop 10/18/19 at 12:23; Status DC Phenylephrine HCl (Brayden-Synephrine Inj) 10 mg STK-MED ONCE .ROUTE ; Start 10/18/19 at 13:33; Stop 10/18/19 at 13:33; Status DC Phenylephrine HCl (Brayden-Synephrine Inj) 10 mg STK-MED ONCE .ROUTE ; Start 10/18/19 at 13:33; Stop 10/18/19 at 13:33; Status DC Ondansetron HCl (Zofran) 4 mg STK-MED ONCE .ROUTE ; Start 10/18/19 at 13:33; Stop 10/18/19 at 13:33; Status DC Enoxaparin Sodium (Lovenox 40mg Syringe) 40 mg Q24H SQ Last administered on 11/07/19at 08:41; Start 10/19/19 at 08:00 Sodium Chloride (Normal Saline Flush) 3 ml QSHIFT PRN IV AFTER MEDS AND BLOOD DRAWS; Start 10/18/19 at 14:45 Naloxone HCl (Narcan) 0.4 mg PRN Q2MIN PRN IV SEE INSTRUCTIONS; Start 10/18/19 at 14:45 Sodium Chloride 1,000 ml @ 25 mls/hr Q24H IV Last administered on 11/06/19at 14:33; Start 10/18/19 at 14:33 Morphine Sulfate (Morphine Sulfate) 1 mg PRN Q1HR PRN IV PAIN; Start 10/18/19 at 14:45 Midazolam HCl 100 mg/Sodium Chloride 100 ml @ 1 mls/hr CONT PRN IV SEE I/O RECORD Last administered on 10/21/19at 18:48; Start 10/18/19 at 14:45 Phenylephrine HCl (PHENYLEPHRINE in 0.9% NACL PF) 1 mg STK-MED ONCE IV ; Start 10/18/19 at 14:44; Stop 10/18/19 at 14:45; Status DC Ephedrine Sulfate (ePHEDrine PF IN SALINE SYRINGE) 50 mg STK-MED ONCE IV ; Start 10/18/19 at 14:45; Stop 10/18/19 at 14:45; Status DC Vasopressin 20 unit/Dextrose 101 ml @ 12 mls/hr CONT PRN IV SEE I/O RECORD Last administered on 10/25/19at 04:17; Start 10/18/19 at 15:30 Sodium Chloride 1,000 ml @ 1,000 mls/hr 1X ONCE IV Last administered on at 15:42; Start 10/18/19 at 15:45; Stop 10/18/19 at 16:44; Status DC Albumin Human 500 ml @ 125 mls/hr 1X ONCE IV ; Start 10/18/19 at 16:00; Stop 10/18/19 at 19:59; Status DC Albumin Human 500 ml @ 125 mls/hr PRN Q1HR PRN IV PER PROTOCOL; Start 10/18/19 at 15:45 Magnesium Sulfate 50 ml @ 25 mls/hr 1X ONCE IV Last administered on 10/18/19at 17:02; Start 10/18/19 at 16:30; Stop 10/18/19 at 18:29; Status DC Sodium Bicarbonate (Sodium Bicarb Adult 8.4% Syr) 50 meq STK-MED ONCE .ROUTE ; Start 10/18/19 at 16:20; Stop 10/18/19 at 16:20; Status DC Sodium Bicarbonate (Sodium Bicarb Adult 8.4% Syr) 100 meq 1X ONCE IV Last administered on 10/18/19at 17:07; Start 10/18/19 at 16:30; Stop 10/18/19 at 16:31; Status DC Sodium Bicarbonate 150 meq/Dextrose 1,150 ml @ 75 mls/hr 1X ONCE IV Last administered on 10/18/19at 20:02; Start 10/18/19 at 16:30; Stop 10/19/19 at 07:49; Status DC Sodium Chloride 80 meq/Potassium Chloride 30 meq/ Potassium Acetate 30 meq/Magnesium Sulfate 14 meq/ Multivitamins 10 ml/Chromium/ Copper/Manganese/ Seleni/Zn 1 ml/ Insulin Human Regular 15 unit/ Total Parenteral Nutrition/Amino Acids/Dextrose/ Fat Emulsion Intravenous 1,920 ml @ 80 mls/hr TPN CONT IV Last administered on 10/19/19at 23:05; Start 10/19/19 at 22:00; Stop 10/20/19 at 21: 59; Status DC Sodium Chloride 100 meq/Potassium Chloride 30 meq/ Potassium Acetate 30 meq/Magnesium Sulfate 12 meq/ Multivitamins 10 ml/Chromium/ Copper/Manganese/ Seleni/Zn 1 ml/ Insulin Human Regular 15 unit/ Total Parenteral Nutrition/Amino Acids/Dextrose/ Fat Emulsion Intravenous 1,920 ml @ 80 mls/hr TPN CONT IV Last administered on 10/20/19at 21:52; Start 10/20/19 at 22:00; Stop 10/21/19 at 21:59; Status DC Sodium Chloride 100 meq/Potassium Chloride 30 meq/ Potassium Acetate 30 meq/Magnesium Sulfate 12 meq/ Multivitamins 10 ml/Chromium/ Copper/Manganese/ Seleni/Zn 1 ml/ Insulin Human Regular 15 unit/ Total Parenteral Nutrition/Amino Acids/Dextrose/ Fat Emulsion Intravenous 1,920 ml @ 80 mls/hr TPN CONT IV Last administered on 10/21/19at 21:46; Start 10/21/19 at 22:00; Stop 10/22/19 at 21:59; Status DC Sodium Chloride 100 meq/Potassium Chloride 30 meq/ Potassium Acetate 30 meq/M agnesium Sulfate 12 meq/ Multivitamins 10 ml/Chromium/ Copper/Manganese/ Seleni/Zn 1 ml/ Insulin Human Regular 15 unit/ Total Parenteral Nutrition/Amino Acids/Dextrose/ Fat Emulsion Intravenous 1,800 ml @ 75 mls/hr TPN CONT IV Last administered on 10/22/19at 22:04; Start 10/22/19 at 22:00; Stop 10/23/19 at 21:59; Status DC Fentanyl Citrate 55 ml @ 0 mls/hr CONT PRN IV SEE COMMENTS Last administered on 10/24/19at 23:55; Start 10/22/19 at 13:00; Stop 10/27/19 at 17:28; Status DC Sodium Chloride 100 meq/Potassium Chloride 30 meq/ Potassium Acetate 30 meq/Magnesium Sulfate 12 meq/ Multivitamins 10 ml/Chromium/ Copper/Manganese/ Seleni/Zn 1 ml/ Insulin Human Regular 15 unit/ Total Parenteral Nutrition/Amino Acids/Dextrose/ Fat Emulsion Intravenous 1,680 ml @ 70 mls/hr TPN CONT IV Last administered on 10/23/19at 21:23; Start 10/23/19 at 22:00; Stop 10/24/19 at 21:59; Status DC Sodium Chloride 110 meq/Potassium Chloride 30 meq/ Potassium Acetate 30 meq/Magnesium Sulfate 15 meq/ Multivitamins 10 ml/Chromium/ Copper/Manganese/ Seleni/Zn 1 ml/ Insulin Human Regular 15 unit/ Total Parenteral Nutrition/Amino Acids/Dextrose/ Fat Emulsion Intravenous 1,680 ml @ 70 mls/hr TPN CONT IV Last administered on 10/24/19at 21:48; Start 10/24/19 at 22:00; Stop 10/25/19 at 21:59; Status DC Sodium Chloride 110 meq/Potassium Chloride 30 meq/ Potassium Acetate 30 meq/Magnesium Sulfate 15 meq/ Multivitamins 10 ml/Chromium/ Copper/Manganese/ Seleni/Zn 1 ml/ Insulin Human Regular 15 unit/ Total Parenteral Nutrition/Amino Acids/Dextrose/ Fat Emulsion Intravenous 1,680 ml @ 70 mls/hr TPN CONT IV Last administered on 10/25/19at 21:33; Start 10/25/19 at 22:00; Stop 10/26/19 at 21:59; Status DC Sodium Chloride 110 meq/Potassium Chloride 30 meq/ Potassium Acetate 30 meq/Magnesium Sulfate 15 meq/ Multivitamins 10 ml/Chromium/ Copper/Manganese/ Seleni/Zn 1 ml/ Insulin Human Regular 15 unit/ Total Parenteral Nutrition/Amino Acids/Dextrose/ Fat Emulsion Intravenous 1,680 ml @ 70 mls/hr TPN CONT IV Last administered on 10/26/19at 21:51; Start 10/26/19 at 22:00; Stop 10/27/19 at 21:59; Status DC Sodium Chloride 90 meq/Potassium Chloride 30 meq/ Potassium Acetate 30 meq/Magnesium Sulfate 15 meq/ Multivitamins 10 ml/Chromium/ Copper/Manganese/ Seleni/Zn 1 ml/ Insulin Human Regular 15 unit/ Total Parenteral Nutrition/Amino Acids/Dextrose/ Fat Emulsion Intravenous 1,680 ml @ 70 mls/hr TPN CONT IV Last administered on 10/27/19at 22:38; Start 10/27/19 at 22:00; Stop 10/28/19 at 21:59; Status DC Fentanyl Citrate 30 ml @ 0 mls/hr CONT PRN IV SEE I/O RECORD; Start 10/27/19 at 17:30 Fentanyl (Duragesic 12mcg/ Hr Patch) 1 patch Q3DAYS TD Last administered on 11/06/19at 09:00; Start 10/28/19 at 09:00 Sodium Chloride 90 meq/Potassium Chloride 30 meq/ Potassium Acetate 30 meq/Magnesium Sulfate 15 meq/ Multivitamins 10 ml/Chromium/ Copper/Manganese/ Seleni/Zn 1 ml/ Insulin Human Regular 15 unit/ Total Parenteral Nutrition/Amino Acids/Dextrose/ Fat Emulsion Intravenous 1,680 ml @ 70 mls/hr TPN CONT IV Last administered on 10/28/19at 21:59; Start 10/28/19 at 22:00; Stop 10/29/19 at 21:59; Status DC Sodium Chloride 90 meq/Potassium Chloride 30 meq/ Potassium Acetate 30 meq/Magnesium Sulfate 15 meq/ Multivitamins 10 ml/Chromium/ Copper/Manganese/ Seleni/Zn 1 ml/ Insulin Human Regular 15 unit/ Total Parenteral Nutrition/Amino Acids/Dextrose/ Fat Emulsion Intravenous 1,680 ml @ 70 mls/hr TPN CONT IV Last administered on 10/29/19at 21:35; Start 10/29/19 at 22:00; Stop 10/30/19 at 21:59; Status DC Vancomycin HCl (Vanco Per Pharmacy) 1 each PRN DAILY PRN MC SEE COMMENTS Last administered on 11/01/19at 02:46; Start 10/30/19 at 09:15; Stop 11/02/19 at 07:41; Status DC Ciprofloxacin/ Dextrose 200 ml @ 200 mls/hr Q12HR IV Last administered on 11/07/19at 08:42; Start 10/30/19 at 10:00 Vancomycin HCl 2 gm/Sodium Chloride 500 ml @ 250 mls/hr 1X ONCE IV Last administered on 10/30/19at 10:34; Start 10/30/19 at 10:00; Stop 10/30/19 at 11:59; Status DC Sodium Chloride 90 meq/Potassium Chloride 30 meq/ Potassium Acetate 30 meq/Magnesium Sulfate 15 meq/ Multivitamins 10 ml/Chromium/ Copper/Manganese/ Seleni/Zn 1 ml/ Insulin Human Regular 15 unit/ Total Parenteral Nutrition/Amino Acids/Dextrose/ Fat Emulsion Intravenous 1,680 ml @ 70 mls/hr TPN CONT IV Last administered on 10/30/19at 22:02; Start 10/30/19 at 22:00; Stop 10/31/19 at 21:59; Status DC Diphenhydramine HCl (Benadryl) 25 mg 1X ONCE IVP Last administered on 10/30/19at 14:26; Start 10/30/19 at 14:30; Stop 10/30/19 at 14:31; Status DC Vancomycin HCl 1.5 gm/Sodium Chloride 500 ml @ 250 mls/hr Q8H IV Last administered on 10/31/19at 03:08; Start 10/30/19 at 18:30; Stop 10/31/19 at 12:24; Status DC Vancomycin HCl (Vancomycin Trough Level) 1 each 1X ONCE MC Last administered on 10/31/19at 10:00; Start 10/31/19 at 10:00; Stop 10/31/19 at 10:01; Status DC Sodium Chloride 90 meq/Potassium Chloride 30 meq/ Potassium Acetate 30 meq/Magnesium Sulfate 15 meq/ Multivitamins 10 ml/Chromium/ Copper/Manganese/ Seleni/Zn 1 ml/ Insulin Human Regular 15 unit/ Total Parenteral Nutrition/Amino Acids/Dextrose/ Fat Emulsion Intravenous 1,680 ml @ 70 mls/hr TPN CONT IV Last administered on 10/31/19at 22:13; Start 10/31/19 at 22:00; Stop 11/01/19 at 21:59; Status DC Vancomycin HCl (Vancomycin Random Level) 1 each 1X ONCE MC Last administered on 11/01/19at 01:00; Start 11/01/19 at 01:00; Stop 11/01/19 at 01:01; Status DC Vancomycin HCl 1.5 gm/Sodium Chloride 500 ml @ 250 mls/hr Q12H IV Last administered on 11/01/19at 22:07; Start 11/01/19 at 10:00; Stop 11/02/19 at 07:41; Status DC Vancomycin HCl (Vancomycin Trough Level) 1 each 1X ONCE MC ; Start 11/02/19 at 09:30; Stop 11/02/19 at 09:31; Status Cancel Sodium Chloride 90 meq/Potassium Chloride 30 meq/ Potassium Acetate 30 meq/Magnesium Sulfate 15 meq/ Multivitamins 10 ml/Chromium/ Copper/Manganese/ Seleni/Zn 1 ml/ Insulin Human Regular 15 unit/ Total Parenteral Nutrition/Amino Acids/Dextrose/ Fat Emulsion Intravenous 1,680 ml @ 70 mls/hr TPN CONT IV Last administered on 11/01/19at 22:08; Start 11/01/19 at 22:00; Stop 11/02/19 at 21:59; Status DC Alteplase, Recombinant (Cathflo For Central Catheter Clearance) 1 mg 1X ONCE INT CAT Last administered on 11/01/19at 11:49; Start 11/01/19 at 11:00; Stop 11/01/19 at 11:01; Status DC Daptomycin 500 mg/ Sodium Chloride 50 ml @ 100 mls/hr Q24H IV Last administered on 11/07/19at 09:14; Start 11/02/19 at 09:00 Sodium Chloride 90 meq/Potassium Chloride 30 meq/ Potassium Acetate 30 meq/Magnesium Sulfate 15 meq/ Multivitamins 10 ml/Chromium/ Copper/Manganese/ Seleni/Zn 1 ml/ Insulin Human Regular 15 unit/ Total Parenteral Nutrition/Amino Acids/Dextrose/ Fat Emulsion Intravenous 1,680 ml @ 70 mls/hr TPN CONT IV Last administered on 11/02/19at 22:55; Start 11/02/19 at 22:00; Stop 11/03/19 at 21:59; Status DC Sodium Chloride 90 meq/Potassium Chloride 30 meq/ Potassium Acetate 30 meq/Magnesium Sulfate 15 meq/ Multivitamins 10 ml/Chromium/ Copper/Manganese/ Seleni/Zn 1 ml/ Insulin Human Regular 15 unit/ Total Parenteral Nutrition/Amino Acids/Dextrose/ Fat Emulsion Intravenous 1,680 ml @ 70 mls/hr TPN CONT IV Last administered on 11/03/19at 22:06; Start 11/03/19 at 22:00; Stop 11/04/19 at 21:59; Status DC Diphenhydramine HCl (Benadryl) 50 mg STK-MED ONCE .ROUTE ; Start 11/03/19 at 18:34; Stop 11/03/19 at 18:35; Status DC Diphenhydramine HCl (Benadryl) 25 mg 1X ONCE IM ; Start 11/03/19 at 18:45; Stop 11/03/19 at 18:46; Status DC Diphenhydramine HCl (Benadryl) 25 mg 1X ONCE IVP Last administered on 11/03/19at 18:56; Start 11/03/19 at 19:00; Stop 11/03/19 at 19:01; Status DC Alprazolam (Xanax) 0.5 mg PRN TID PRN PO ANXIETY / AGITATION Last administered on 11/07/19at 08:41; Start 11/04/19 at 08:00 Sodium Chloride 110 meq/Potassium Chloride 30 meq/ Potassium Acetate 30 meq/Magnesium Sulfate 15 meq/ Multivitamins 10 ml/Chromium/ Copper/Manganese/ Seleni/Zn 1 ml/ Insulin Human Regular 15 unit/ Total Parenteral Nutrition/Amino Acids/Dextrose/ Fat Emulsion Intravenous 1,680 ml @ 70 mls/hr TPN CONT IV Last administered on 11/04/19at 21:21; Start 11/04/19 at 22:00; Stop 11/05/19 at 21:59; Status DC Sodium Chloride 110 meq/Potassium Chloride 30 meq/ Potassium Acetate 30 meq/Magnesium Sulfate 15 meq/ Multivitamins 10 ml/Chromium/ Copper/Manganese/ Seleni/Zn 1 ml/ Insulin Human Regular 15 unit/ Total Parenteral Nutrition/Amino Acids/Dextrose/ Fat Emulsion Intravenous 1,680 ml @ 70 mls/hr TPN CONT IV Last administered on 11/05/19at 22:01; Start 11/05/19 at 22:00; Stop 11/06/19 at 21:59; Status DC Alteplase, Recombinant (Cathflo For Central Catheter Clearance) 1 mg 1X ONCE INT CAT Last administered on 11/06/19at 08:23; Start 11/06/19 at 08:15; Stop 11/06/19 at 08:16; Status DC Sodium Chloride 110 meq/Sodium Phosphate 10 mmol/ Potassium Chloride 30 meq/ Potassium Acetate 30 meq/Magnesium Sulfate 15 meq/ Multivitamins 10 ml/Chromium/ Copper/Manganese/ Seleni/Zn 1 ml/ Insulin Human Regular 15 unit/ Total Parenteral Nutrition/Amino Acids/Dextrose/ Fat Emulsion Intravenous 1,680 ml @ 70 mls/hr TPN CONT IV Last administered on 11/06/19at 22:03; Start 11/06/19 at 22:00; Stop 11/07/19 at 21:59 Active Scripts Active Reported Bisoprolol Fumarate 5 Mg Tablet 10 Mg PO DAILY Vitals/I & O Vital Sign - Last 24 Hours 7/19/20 7/19/20 7/19/20 7/19/20 12:00 12:00 12:27 13:00 Temp 98.9 98.9 Pulse 109 117 Resp 29 33 B/P (MAP) 128/80 (96) 138/88 (105) Pulse Ox 100 100 100 O2 Delivery Trach Collar Tracheal Collar Tracheal Collar Tracheal Collar O2 Flow Rate 10.0 10.0 8.0 10.0 19/20 7/19/20 7//20 11/05/20 13:15 13:55 14:00 14:39 Pulse 113 Resp 34 24 24 B/P (MAP) 128/98 (108) Pulse Ox 100 100 100 O2 Delivery Tracheal Collar Tracheal Collar O2 Flow Rate 8.0 10.0 10.0 11/05/20 11/05/20 //11/06/19 15:00 16:00 16:00 16:28 Temp 99.0 99.0 Pulse 114 122 Resp 22 24 B/P (MAP) 135/88 (104) 137/81 (99) Pulse Ox 100 100 100 O2 Delivery Tracheal Collar Trach Collar Tracheal Collar Tracheal Collar O2 Flow Rate 10.0 10.0 10.0 8.0 11/05/20 19/20 7/19/20 11/05/20 17:00 18:00 19:00 20:00 Pulse 121 129 126 Resp 27 32 30 B/P (MAP) 138/90 (106) 146/93 (110) 135/82 (99) Pulse Ox 10 10 100 O2 Delivery Tracheal Collar Tracheal Collar Tracheal Collar Trach Collar O2 Flow Rate 10.0 11/05/20 11/05/20 11/05/20 11/05/20 20:00 20:03 20:04 20:04 Temp 98.5 98.5 Pulse 127 Resp 28 31 B/P (MAP) 140/81 (100) Pulse Ox 100 100 100 100 O2 Delivery Tracheal Collar Tracheal Collar Tracheal Collar Tracheal Collar O2 Flow Rate 8.0 8.0 11/05/20 //20 7//20 7//20 20:34 21:00 22:00 23:00 Pulse 128 125 123 Resp 31 32 28 28 B/P (MAP) 134/97 (109) 124/76 (92) 128/76 (93) Pulse Ox 100 100 100 100 O2 Delivery Tracheal Collar Tracheal Collar Tracheal Collar Tracheal Collar 11/06/11/07/19 11/07/19 11/07/19 00:00 00:00 01:00 02:00 Temp 99.0 99.0 Pulse 124 126 127 Resp 30 29 31 B/P (MAP) 135/74 (94) 135/76 (95) 111/74 (86) Pulse Ox 100 100 100 O2 Delivery Tracheal Collar Trach Collar Tracheal Collar Tracheal Collar O2 Flow Rate 10.0 11/07/19 11/07/19 11/07/19 11/07/19 03:00 04:00 04:00 05:00 Temp 99.8 99.8 Pulse 127 127 129 Resp 26 28 30 B/P (MAP) 122/70 (87) 113/77 (89) 120/76 (91) Pulse Ox 98 100 100 O2 Delivery Tracheal Collar Trach Collar Tracheal Collar Tracheal Collar O2 Flow Rate 10.0 11/07/19 11/07/19 06:00 08:49 Pulse 128 Resp 28 B/P (MAP) 131/77 (95) Pulse Ox 99 99 O2 Delivery Tracheal Collar Tracheal Collar O2 Flow Rate 8.0 Intake and Output 11/06/19 11/06/19 11/07/19 15:00 23:00 07:00 Intake Total 1261.1 ml 233.3 ml 915 ml Output Total 535 ml 1225 ml 760 ml Balance 726.1 ml -991.7 ml 155 ml Justicifation of Admission Dx: Justifications for Admission: Justification of Admission Dx: Yes ABI AHN MD Nov 07, 2019 11:20
[2019-11-07 11:24] LABS: % BANDS 9 % (0-9); % BASOS 1 % (0-3); % EOS 1 % (0-5); % LYMPHS 6 % (24-48); % MONOS 7 % (0-10); % SEGS 76 % (35-66); ANISOCYTOSIS SLIGHT; NUCLEATED RBC 1; PLT ESTIMATE INCREASED (ADEQUATE)
[2019-11-07] MEDS: TPN PER PHARMACY MC PRN (12:03)
--- NOTE | 2019-11-07 12:54 | PDOC ---
Objective: Vital Signs: Vital Signs Date Time Temp Pulse Resp B/P (MAP) Pulse Ox O2 Delivery O2 Flow Rate FiO2 11/07/19 12:14 96 Nasal Cannula 2.0 11/07/19 06:00 128 28 131/77 (95) 11/07/19 04:00 99.8 99.8 Labs: Laboratory Tests Test 11/06/19 18:22 11/07/19 00:20 11/07/19 05:55 Glucose (Fingerstick) 102 mg/dL 115 mg/dL 114 mg/dL White Blood Count 25.3 x10^3/uL Red Blood Count 2.87 x10^6/uL Hemoglobin 8.1 g/dL Hematocrit 24.8 % Mean Corpuscular Volume 86 fL Mean Corpuscular Hemoglobin 28 pg Mean Corpuscular Hemoglobin Concent 33 g/dL Red Cell Distribution Width 15.6 % Platelet Count 688 x10^3/uL Neutrophils (%) (Auto) 85 % Lymphocytes (%) (Auto) 8 % Monocytes (%) (Auto) 6 % Eosinophils (%) (Auto) 2 % Basophils (%) (Auto) 0 % Neutrophils # (Auto) 21.4 x10^3/uL Lymphocytes # (Auto) 1.9 x10^3/uL Monocytes # (Auto) 1.5 x10^3/uL Eosinophils # (Auto) 0.4 x10^3/uL Basophils # (Auto) 0.1 x10^3/uL Segmented Neutrophils % 76 % Band Neutrophils % 9 % Lymphocytes % 6 % Monocytes % 7 % Eosinophils % 1 % Basophils % 1 % Nucleated Red Blood Cells 1 Platelet Estimate Increased Large Platelets Occ Anisocytosis Slight Sodium Level 133 mmol/L Potassium Level 4.6 mmol/L Chloride Level 100 mmol/L Carbon Dioxide Level 31 mmol/L Anion Gap 2 Blood Urea Nitrogen 13 mg/dL Creatinine 0.6 mg/dL Estimated GFR (Cockcroft-Gault) 106.3 Glucose Level 113 mg/dL Calcium Level 9.4 mg/dL GRAM STAIN EVALUATION PENDING RESPIRATORY CULTURE Preliminary Preliminary MANY GRAM NEGATIVE RODS on 11/07/19 at 1202 PRELIMINARY ID= [[email or web address] [email or web address]] BLOOD CULTURE Final NO GROWTH AFTER 5 DAYS Imaging: CXR 11/06 IMPRESSION: * Hypoexpanded examination the lungs with focal opacities at the lung bases which could be a combination of pleural effusion and adjacent airspace consolidation from atelectasis or infiltrate. There is also interstitial prominence which can be seen with edema or interstitial infiltrate. PE: GEN: chronically ill - up to chair - nurse tending to drains, RT present LUNGS: trach collar HEART: tachycardic ABD: drains NEURO/PSYCH: eyes closed - observed from outside room A/P: Complicated gallstone pancreatitis, MOSF, s/p necrosectomy -- Continue support. Justicifation of Admission Dx: Justifications for Admission: Justification of Admission Dx: Yes CYNDEE FALCON Nov 07, 2019 12:54
--- NOTE | 2019-11-07 13:35 | NUR ---
SS following up with discharge planning. SS reviewed pt chart and discussed with pt RN. Pt is currently on nasal canula oxygen. Pt white cell count increased. Pt on TPN, IV Daptomycin, IV Cipro, IV Micafungin, and IV Meropenem. All tubes and drains remain. Med Assist working with family to pursue disability application. Pt is currently self pay. SS will continue to follow for discharge planning.
--- NOTE | 2019-11-07 13:40 | PDOC ---
PULMONARY PROGRESS NOTES Subjective Patient, off the ventilator. Vitals Vital Signs Date Time Temp Pulse Resp B/P (MAP) Pulse Ox O2 Delivery O2 Flow Rate FiO2 11/07/19 12:14 96 Nasal Cannula 2.0 11/07/19 06:00 128 28 131/77 (95) 11/07/19 04:00 99.8 99.8 ROS: No Nausea, No Chest Pain, No Increase Cough General: Alert HEENT: Other (trach site ok) Lungs: Crackles, Other (l ct) Cardiovascular: S1, S2 Abdomen: Soft, Non-tender, Other (multiple KAYLIN drains ) Neuro Exam: Alert Extremities: Other (+1 BLE edema) Skin: Warm Labs Laboratory Tests Test 11/05/19 17:47 11/06/19 00:10 11/06/19 05:53 11/06/19 06:00 Glucose (Fingerstick) 96 mg/dL (70-99) 137 mg/dL (70-99) 120 mg/dL (70-99) Sodium Level 136 mmol/L (136-145) Potassium Level 4.2 mmol/L (3.5-5.1) Chloride Level 102 mmol/L (98-107) Carbon Dioxide Level 30 mmol/L (21-32) Anion Gap 4 (6-14) Blood Urea Nitrogen 10 mg/dL (-20) Creatinine 0.5 mg/dL (0.6-1.0) Estimated GFR (Cockcroft-Gault) 131.1 Glucose Level 129 mg/dL (70-99) Calcium Level 9.6 mg/dL (8.5-10.1) Phosphorus Level 2.6 mg/dL (2.6-4.7) Magnesium Level 2.1 mg/dL (1.8-2.4) Test 11/06/19 08:50 11/06/19 12:31 11/06/19 18:22 11/07/19 00:20 Creatine Kinase 11 U/L (26-192) Glucose (Fingerstick) 162 mg/dL (70-99) 102 mg/dL (70-99) 115 mg/dL (70-99) Test 11/07/19 05:55 White Blood Count 25.3 x10^3/uL (4.0-11.0) Red Blood Count 2.87 x10^6/uL (3.50-5.40) Hemoglobin 8.1 g/dL (12.0-15.5) Hematocrit 24.8 % (36.0-47.0) Mean Corpuscular Volume 86 fL (79-100) Mean Corpuscular Hemoglobin 28 pg (25-35) Mean Corpuscular Hemoglobin Concent 33 g/dL (31-37) Red Cell Distribution Width 15.6 % (11.5-14.5) Platelet Count 688 x10^3/uL (140-400) Neutrophils (%) (Auto) 85 % (31-73) Lymphocytes (%) (Auto) 8 % (24-48) Monocytes (%) (Auto) 6 % (0-9) Eosinophils (%) (Auto) 2 % (0-3) Basophils (%) (Auto) 0 % (0-3) Neutrophils # (Auto) 21.4 x10^3/uL (1.8-7.7) Lymphocytes # (Auto) 1.9 x10^3/uL (1.0-4.8) Monocytes # (Auto) 1.5 x10^3/uL (0.0-1.1) Eosinophils # (Auto) 0.4 x10^3/uL (0.0-0.7) Basophils # (Auto) 0.1 x10^3/uL (0.0-0.2) Segmented Neutrophils % 76 % (35-66) Band Neutrophils % 9 % (0-9) Lymphocytes % 6 % (24-48) Monocytes % 7 % (0-10) Eosinophils % 1 % (0-5) Basophils % 1 % (0-3) Nucleated Red Blood Cells 1 Platelet Estimate Increased (ADEQUATE) Large Platelets Occ Anisocytosis Slight Sodium Level 133 mmol/L (136-145) Potassium Level 4.6 mmol/L (3.5-5.1) Chloride Level 100 mmol/L (98-107) Carbon Dioxide Level 31 mmol/L (21-32) Anion Gap 2 (6-14) Blood Urea Nitrogen 13 mg/dL (7-20) Creatinine 0.6 mg/dL (0.6-1.0) Estimated GFR (Cockcroft-Gault) 106.3 Glucose Level 113 mg/dL (70-99) Glucose (Fingerstick) 114 mg/dL (70-99) Calcium Level 9.4 mg/dL (8.5-10.1) Laboratory Tests Test 11/06/19 18:22 11/07/19 00:20 11/07/19 05:55 Glucose (Fingerstick) 102 mg/dL (70-99) 115 mg/dL (70-99) 114 mg/dL (70-99) White Blood Count 25.3 x10^3/uL (4.0-11.0) Red Blood Count 2.87 x10^6/uL (3.50-5.40) Hemoglobin 8.1 g/dL (12.0-15.5) Hematocrit 24.8 % (36.0-47.0) Mean Corpuscular Volume 86 fL (79-100) Mean Corpuscular Hemoglobin 28 pg (25-35) Mean Corpuscular Hemoglobin Concent 33 g/dL (31-37) Red Cell Distribution Width 15.6 % (11.5-14.5) Platelet Count 688 x10^3/uL (140-400) Neutrophils (%) (Auto) 85 % (31-73) Lymphocytes (%) (Auto) 8 % (24-48) Monocytes (%) (Auto) 6 % (0-9) Eosinophils (%) (Auto) 2 % (0-3) Basophils (%) (Auto) 0 % (0-3) Neutrophils # (Auto) 21.4 x10^3/uL (1.8-7.7) Lymphocytes # (Auto) 1.9 x10^3/uL (1.0-4.8) Monocytes # (Auto) 1.5 x10^3/uL (0.0-1.1) Eosinophils # (Auto) 0.4 x10^3/uL (0.0-0.7) Basophils # (Auto) 0.1 x10^3/uL (0.0-0.2) Segmented Neutrophils % 76 % (35-66) Band Neutrophils % 9 % (0-9) Lymphocytes % 6 % (24-48) Monocytes % 7 % (0-10) Eosinophils % 1 % (0-5) Basophils % 1 % (0-3) Nucleated Red Blood Cells 1 Platelet Estimate Increased (ADEQUATE) Large Platelets Occ Anisocytosis Slight Sodium Level 133 mmol/L (136-145) Potassium Level 4.6 mmol/L (3.5-5.1) Chloride Level 100 mmol/L (98-107) Carbon Dioxide Level 31 mmol/L (21-32) Anion Gap 2 (6-14) Blood Urea Nitrogen 13 mg/dL (7-20) Creatinine 0.6 mg/dL (0.6-1.0) Estimated GFR (Cockcroft-Gault) 106.3 Glucose Level 113 mg/dL (70-99) Calcium Level 9.4 mg/dL (8.5-10.1) Medications Active Scripts Medications Dose Route/Sig Max Daily Dose Days Date Category Bisoprolol Fumarate 5 Mg Tablet 10 Mg PO DAILY 07/04/19 Reported Comments cxr 10/30, reviewed, b ll infilt effusion atelectasis ct reviewed 10/30/19, Decreased left-sided effusion after catheter placement. The right-sided effusion has increased as has atelectasis. There has been exchange or placement of multiple drainage tubes and a gastrojejunostomy tube. Both collections are smaller. No significant new abdominal fluid collection is seen. The jejunal component of the gastrojejunostomy tube appears to be looped in the proximal small bowel. ct abdomen /pelvis 09/23 1. Removal of the percutaneous pigtail drainage catheters since the prior exam. Sequela of pancreatitis with extensive pseudocysts again demonstrated, the right-sided collections are slightly larger since the prior exam, the left-sided collections are stable. See above. 2. Moderate to large left pleural effusion with atelectasis and collapse of most of the left lower lobe, stable. Small right pleural effusion is stable. 3. Gallstone. ct chest 10/02 reviewed GRAM NEG COCCOBACILLI:MANY SQUAMOUS EPI CELL:RARE PMN (WBCs):FEW Unless otherwise specified, Testing Performed by: [address] [address] For Inquires, the Physician may contact the Microbiology department at [phone] RESPIRATORY CULTURE Final Final MANY GRAM NEGATIVE RODS on 10/03/19 at 1102 FINAL ID= [PSEUDOMONAS AERUGINOSA] MICRO CHARGES PSEUDOMONAS AERUGINOSA ANTIMICROBIAL SUSCEPTIBILITY Final Comment NEG ALEXANDRA 56 PSEUDOMONAS AERUGINOSA ANTIBIOTIC RESULT INTERPRETATION AMIKACIN <=16 S AZTREONAM <=4 S CEFTAZIDIME <=1 S CIPROFLOXACIN <=0.25 S CEFEPIME <=2 S CEFTAZIDIME/AVIBACTAM <=4 S GENTAMICIN <=2 S LEVOFLOXACIN <=0.5 S Impression . IMPRESSION: 1. Acute hypoxemic respiratory failure secondary to ARDS status post trach, developed anemia 09/24, blood drainage from RLQ abdomen drain site, and surrounding firmness / developed septic shock 09/24 from abdomen source, required levo 09/24 s/p 3 new drains 09/24 with brown color drainage, 2. Gallstone pancreatitis, now with ongoing bleeding from prior drain. Anemic. s/p Tx multiple units over several days 3. septic shock/sepsis, recurrent 09/24, source abdomen. new fever ? aspiration pneumonitis/pneumonia 4. Acute kidney injury-, Off HD--renal function decling. suspect JUANA on CKD due to hypotension , improved now 5. Acute gallstone pancreatitis. 6. Hypoalbuminemia. 7. Moderate persistent effusions, s/p left thora 08/29, reaccumulation of left effusion. O2 requirement not changed. 8. Fever- ,hypotension. suspect recurrent sepsis/ likely pancreatic source. Per ID, per surgery-- 9. Chronic anemia-- ongoing / s/p PRBC 10. Covid 19 testing negative 11. Moderate to large ascites-S/P paracentisis 12.S/P paracentisis with 4 liters removed on 08/03/19 13. S/P IR drain placement on 08/26/2019, removal, re inserted 09/24 14. Depression/Anxiety 15., Fever, per ID 16. Status post chest tube placement, not much drainage 10/17 S/P Exploratory laparotomy, lysis of adhesions, subtotal cholecystectomy with cholangiogram, gastrojejunostomy tube placement, pancreatic necrosectomy leukocytosis- improving Plan . Continue current support Chest tube with functional, not draining Continue current support, monitor H&H, Trach shield, as tolerated Up to chair, pt/ot Follow culture Follow surgery input DVT GI prophylaxis ABX per ID f/u BC /resp cultures Continue TPN for nutrition support DVT/GI PPX D/W RN and RT, HARMEET BEE MD Nov 07, 2019 13:40
--- NOTE | 2019-11-07 14:00 | PDOC ---
[facility] PROGRESS NOTE Chief Complaint Chief Complaint Postop day 20 (Exploratory laparotomy, lysis of adhesions, subtotal cholecystectomy with cholangiogram, gastrojejunostomy tube placement, pancreatic necrosectomy) Acute hypoxic Respiratory failure required mechanical ventilation Tracheostomy bilateral pleural effusions/pulm edema s/p Throacentesis on 10/03/2019 Severe Acute gallstone pancreatitis (not a surgical candidate at this time) with necrosis Acute kidney failure now requiring dialysis Gallstones (Calculus of gallbladder with acute cholecystitis without obstruction) HTN Intractable pain Intractable nausea Covid 19 negative. Acute on chronic anemia EEG: No seizure activity Fever - intermittent ? Ileus with vomiting Abd distention - U/S and CT reviewed s/p 0.4 L of opaque, debris-containing ascites was removed 08/23 Acute pancreatitis with persistent necrosis Gallstone pancreatitis with necrosis. -CT A/P 09/23 showed multiple pseudocysts, slight larger on the right. s/p drains x 3, 09/24. + PSAE (MDRO-R Cefepime, Zosyn ALEXANDRA < 64) and yeast, -s/p drain 08/14. C. parapsilosis. s/p drain 08/23 + yeast & high amylase; s/p additional drain on 08/25. Drains removed. Ascites s/p paracentesis 08/02 & 08/23. C. parapsilosis JUANA. off HD. A large fluid collection in the pancreatic bed has slightly decreased in size, d escribed below, the pancreas itself is difficult to visualize, which could be due to necrosis or obscuration of pancreatic parenchyma from the surrounding fluid collection.10/02 - 08/14 status post KAYLIN drain placement + C paropsilosis. s/p additional drains 08/25 Anemia - S/p PRBCs. Cholelithiasis with thickening of the gallbladder wall. Leucocytosis improving JUANA, hyperkalemia, Metabolic acidosis off dialysis hypocalcemia Prediabetes HTN s/p trach Hyperglycemia severe protein-caloric malnutrition Moderate to large left pleural effusion with atelectasis and collapse of most of the left lower lobe, stable History of Present Illness History of Present Illness 11/07/2019 Patient seen and examined in the ICU She is still extremely critically ill On TPN For IV antibiotics Still tachycardic Appears extremely weak frail and pale Seems to be losing some weight despite the TPN Discussed with case management Discussed with RN Chart reviewed Vitals/I&O Vitals/I&O: Vital Signs Date Time Temp Pulse Resp B/P (MAP) Pulse Ox O2 Delivery O2 Flow Rate FiO2 11/07/19 12:14 96 Nasal Cannula 2.0 11/07/19 06:00 128 28 131/77 (95) 11/07/19 04:00 99.8 99.8 I & O 11/06/19 11/06/19 11/07/19 15:00 23:00 07:00 Intake Total 1261.1 ml 233.3 ml 915 ml Output Total 535 ml 1225 ml 760 ml Balance 726.1 ml -991.7 ml 155 ml Physical Exam Physical Exam: GENERAL: Propped up in bed, resting quietly HEENT: Pupils equal, oral cavity dry. NGT out, NECK: Tracheostomy LUNGS: Diminished aeration bases, CT on left HEART: S1, S2, regular, tachy 110s ABDOMEN: Distended, bowel sounds hypoactive, soft, goyal x 2, 3 KAYLIN drains, G-J tube and + wound vac : Lind in place EXTREMITIES: Trace generalized edema, no cyanosis. RADHA hose bilaterally, SKIN: warm touch. No signs of rash. NEURO: Did not awaken LUE-PICC without signs of complications General: Cooperative, No acute distress, Other (Extremely weak can barely talk) Heart: Regular rate (SR/ST), Other (distant heart sounds) Lungs: Crackles, Other (l ct) Abdomen: Other (drains bilious, mulitple drains ) Extremities: Other (Diffuse edema) Skin: No rashes, No significant lesion Labs Labs: Laboratory Tests Test 11/06/19 18:22 11/07/19 00:20 11/07/19 05:55 Glucose (Fingerstick) 102 mg/dL (70-99) 115 mg/dL (70-99) 114 mg/dL (70-99) White Blood Count 25.3 x10^3/uL (4.0-11.0) Red Blood Count 2.87 x10^6/uL (3.50-5.40) Hemoglobin 8.1 g/dL (12.0-15.5) Hematocrit 24.8 % (36.0-47.0) Mean Corpuscular Volume 86 fL (79-100) Mean Corpuscular Hemoglobin 28 pg (25-35) Mean Corpuscular Hemoglobin Concent 33 g/dL (31-37) Red Cell Distribution Width 15.6 % (11.5-14.5) Platelet Count 688 x10^3/uL (140-400) Neutrophils (%) (Auto) 85 % (31-73) Lymphocytes (%) (Auto) 8 % (24-48) Monocytes (%) (Auto) 6 % (0-9) Eosinophils (%) (Auto) 2 % (0-3) Basophils (%) (Auto) 0 % (0-3) Neutrophils # (Auto) 21.4 x10^3/uL (1.8-7.7) Lymphocytes # (Auto) 1.9 x10^3/uL (1.0-4.8) Monocytes # (Auto) 1.5 x10^3/uL (0.0-1.1) Eosinophils # (Auto) 0.4 x10^3/uL (0.0-0.7) Basophils # (Auto) 0.1 x10^3/uL (0.0-0.2) Segmented Neutrophils % 76 % (35-66) Band Neutrophils % 9 % (0-9) Lymphocytes % 6 % (24-48) Monocytes % 7 % (0-10) Eosinophils % 1 % (0-5) Basophils % 1 % (0-3) Nucleated Red Blood Cells 1 Platelet Estimate Increased (ADEQUATE) Large Platelets Occ Anisocytosis Slight Sodium Level 133 mmol/L (136-145) Potassium Level 4.6 mmol/L (3.5-5.1) Chloride Level 100 mmol/L (98-107) Carbon Dioxide Level 31 mmol/L (21-32) Anion Gap 2 (6-14) Blood Urea Nitrogen 13 mg/dL (7-20) Creatinine 0.6 mg/dL (0.6-1.0) Estimated GFR (Cockcroft-Gault) 106.3 Glucose Level 113 mg/dL (70-99) Calcium Level 9.4 mg/dL (8.5-10.1) Assessment and Plan Assessmemt and Plan Problems Medical Problems: (1) Acute pancreatitis Status: Acute (2) Cholelithiasis Status: Acute Postop day 20 (Exploratory laparotomy, lysis of adhesions, subtotal cholecystectomy with cholangiogram, gastrojejunostomy tube placement, pancreatic necrosectomy) Acute hypoxic Respiratory failure required mechanical ventilation Tracheostomy bilateral pleural effusions/pulm edema s/p Throacentesis on 10/03/2019 Severe Acute gallstone pancreatitis (not a surgical candidate at this time) with necrosis Acute kidney failure now requiring dialysis Gallstones (Calculus of gallbladder with acute cholecystitis without obstruction) HTN Intractable pain Intractable nausea Covid 19 negative. Acute on chronic anemia EEG: No seizure activity Fever - intermittent ? Ileus with vomiting Abd distention - U/S and CT reviewed s/p 0.4 L of opaque, debris-containing ascites was removed 08/23 Acute pancreatitis with persistent necrosis Gallstone pancreatitis with necrosis. -CT A/P 09/23 showed multiple pseudocysts, slight larger on the right. s/p drains x 3, 09/24. + PSAE (MDRO-R Cefepime, Zosyn ALEXANDRA < 64) and yeast, -s/p drain 08/14. C. parapsilosis. s/p drain 08/23 + yeast & high amylase; s/p additional drain on 08/25. Drains removed. Ascites s/p paracentesis 08/02 & 08/23. C. parapsilosis JUANA. off HD. A large fluid collection in the pancreatic bed has slightly decreased in size, described below, the pancreas itself is difficult to visualize, which could be due to necrosis or obscuration of pancreatic parenchyma from the surrounding fluid collection.10/02 - 08/14 status post KAYLIN drain placement + C paropsilosis. s/p additional drains 08/25 Anemia - S/p PRBCs. Cholelithiasis with thickening of the gallbladder wall. Leucocytosis improving JUANA, hyperkalemia, Metabolic acidosis off dialysis hypocalcemia Prediabetes HTN s/p trach Hyperglycemia severe protein-caloric malnutrition Moderate to large left pleural effusion with atelectasis and collapse of most of the left lower lobe, stable Plan ICU monitoring TPN Aggressive wound care Trend labs follow cultures. meropenam, cipro, micafungin per ID PRN trach shield ID, gen sx, GI, pulm following DVT GI prophylaxis Continue TPN for nutrition support poor prognosis follow labs xanax for anxiety prn Appreciate subspecialist input Long-term prognosis extremely guarded Total time 33 Comment Review of Relevant I have reviewed the following items kolby (where applicable) has been applied. Medications: Current Medications Medications (Trade) Dose Ordered Sig/Yvon Route PRN Reason Start Time Stop Time Status Last Admin Dose Admin Sodium Chloride 110 meq/Sodium Phosphate 10 mmol/ Potassium Chloride 30 meq/ Potassium Acetate 30 meq/Magnesium Sulfate 15 meq/ Multivitamins 10 ml/Chromium/ Copper/Manganese/ Seleni/Zn 1 ml/ Insulin Human Regular 15 unit/ Total Parenteral Nutrition/Amino Acids/Dextrose/ Fat Emulsion Intravenous 1,680 ml @ 70 mls/hr TPN CONT IV 11/06/19 22:00 11/07/19 21:59 11/06/19 22:03 Justicifation of Admission Dx: Justifications for Admission: Justification of Admission Dx: Yes BEBO KIRBY III DO Nov 07, 2019 14:00
--- NOTE | 2019-11-07 14:08 | NUR ---
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, 8 inches Weight: 89.1 kg Current diet: NPO LABS: Sodium: 136 Potassium: 4.2 Chloride: 102 Calcium: 9.6 Corrected Calcium: 11.92 Magnesium: 2.1 CO2: 30 SCr: 0.5 Glucose: 120-129 Albumin: 1.1 AST: 25 ALT: 37 TPN FORMULA: TPN TYPE: Central Continuous AMINO ACIDS: 85 gm DEXTROSE: 250 gm LIPIDS: 20 gm SODIUM CHLORIDE: 120 mEq SODIUM ACETATE: - mEq SODIUM PHOSPHATE: 10 mmol POTASSIUM CHLORIDE: 30 mEq POTASSIUM ACETATE: 30 mEq POTASSIUM PHOSPHATE: - mmol MAGNESIUM: 15 mEq CALCIUM: - mEq INSULIN: 15 units MULTIPLE VITAMIN: 10 ml TRACE ELEMENTS: 1 ml ml(s) TPN PLAN: INCREASE NACL TO 120 MEQ R: Continue TPN at same rate Will monitor electrolytes, glucose, and tolerance to TPN. KRISTIAN APODACA [facility], 11/07/19 [id number]
[2019-11-07] MEDS: IV NORMAL SALINE 1000ML BAG 1,000 ML IV SCH (21:03)
[2019-11-07] MEDS ORDERED: [UNRECOGNIZED DRUG - OTHER] IV SCH ×11 (22:00)
[2019-11-07] MEDS ORDERED: TOTAL PARENTERAL NUTRITION IV SCH ×11 (22:00)
[2019-11-07] MEDS ORDERED: AMINO ACID IV SCH ×11 (22:00)
[2019-11-07] MEDS ORDERED: DEXTROSE 70% IV SCH ×11 (22:00)
[2019-11-07] MEDS: ACETAMINOPHEN 650 MG SUPP.RECT. PR PRN (22:11)
[2019-11-08] VITALS (15 sets, daily range): BP systolic 106–128; BP diastolic 65–91
[2019-11-08] MEDS: MEROPENEM 500 MG in IV NORMAL SALINE 50ML 50 ML IV SCH ×2 (00:06→06:15)
[2019-11-08] MEDS: IPRATRPIUM/ALBUTEROL 0.5/2.5MG 3 ML NEBU. NEB SCH ×6 (03:46→23:07)
[2019-11-08] MEDS: INSULIN LISPRO 300 UNITS/3 ML VIAL. SQ SCH ×4 (06:00→18:00)
[2019-11-08] MEDS: ACETYLCYSTEINE 20% for RESP TX 600 MG/3 ML. NEB SCH ×2 (08:00→19:41)
--- NOTE | 2019-11-08 08:02 | PDOC ---
Infectious Disease Note Subjective: Subjective Pt resting quietly febrile >101 last 24 hrs on vent via trach shield TPN Vital Signs: Vital Signs Vital Signs Date Time Temp Pulse Resp B/P (MAP) Pulse Ox O2 Delivery O2 Flow Rate FiO2 11/08/19 07:00 118 31 113/72 (86) 99 Nasal Cannula 2.0 11/08/19 04:00 99.0 99.0 Physical Exam: PHYSICAL EXAM GENERAL: Propped up in bed, resting quietly HEENT: Pupils equal, oral cavity dry. NGT out, NECK: Tracheostomy LUNGS: Diminished aeration bases, CT on left HEART: S1, S2, regular, tachy 110s ABDOMEN: Distended, bowel sounds hypoactive, soft, goyal x 2, 3 KAYLIN drains, G-J tube and + wound vac : Lind in place EXTREMITIES: Trace generalized edema, no cyanosis. RADHA hose bilaterally, SKIN: warm touch. No signs of rash. NEURO: Did not awaken LUE-PICC without signs of complications Medications: Inpatient Meds: Current Medications Medications (Trade) Dose Ordered Sig/Yvon Start Time Stop Time Status Last Admin Dose Admin Acetaminophen (Tylenol Supp) 650 mg PRN Q6HRS PRN 07/12/19 10:30 11/07/19 22:11 650 MG Acetaminophen (Tylenol) 650 mg PRN Q6HRS PRN 07/09/19 03:36 08/31/19 10:25 DC 08/04/19 19:56 650 MG Acetylcysteine (Mucomyst 20% Resp Treatment) 600 mg RTBID 10/15/19 12:00 11/07/19 20:01 600 MG Albumin Human 500 ml @ 125 mls/hr PRN Q1HR PRN 10/18/19 15:45 Albuterol Sulfate (Ventolin Neb Soln) 2.5 mg 1X ONCE 07/05/19 22:30 07/05/19 22:31 DC 07/06/19 00:56 2.5 MG Albuterol/ Ipratropium (Duoneb) 3 ml Q4HRS 10/01/19 08:00 11/08/19 03:46 3 ML Alprazolam (Xanax) 0.5 mg PRN TID PRN 11/04/19 08:00 11/07/19 22:57 0.5 MG Alteplase, Recombinant (Cathflo For Central Catheter Clearance) 1 mg 1X ONCE 11/06/19 08:15 11/06/19 08:16 DC 11/06/19 08:23 1 MG Alteplase, Recombinant 4 mg/ Sodium Chloride 20 ml @ 20 mls/hr 1X ONCE 10/05/19 10:00 10/05/19 10:59 DC 10/05/19 10:09 20 MLS/HR Amino Acids/ Glycerin/ Electrolytes 1,000 ml @ 75 mls/hr [id number] 08/08/19 21:15 UNV Artificial Tears (Artificial Tears) 1 drop PRN Q15MIN PRN 08/17/19 05:30 10/11/19 21:17 1 DROP Atenolol (Tenormin) 100 mg DAILY 07/05/19 09:00 07/04/19 20:08 DC Atropine Sulfate (ATROPINE 0.5mg SYRINGE) 0.5 mg PRN Q5MIN PRN 07/21/19 08:15 Barium Sulfate (Varibar Thin Liquid Apple) 148 gm 1X ONCE 09/13/19 11:45 09/13/19 11:49 DC Benzocaine (Hurricaine One) 1 spray 1X ONCE 07/08/19 14:30 07/08/19 14:31 DC 07/08/19 16:38 1 SPRAY Bisacodyl (Dulcolax Supp) 10 mg STK-MED ONCE 08/15/19 10:59 08/15/19 10:59 DC Bumetanide (Bumex) 2 mg DAILY 08/26/19 10:00 09/05/19 17:15 DC 09/05/19 08:07 2 MG Bupivacaine HCl/ Epinephrine Bitart (Sensorcain-Epi 0.5%-1:332676 Mpf) 30 ml STK-MED ONCE 10/18/19 08:34 10/18/19 08:35 DC Calcium Carbonate/ Glycine (Tums) 500 mg PRN AFTMEALHC PRN 07/06/19 17:45 08/31/19 10:25 DC Calcium Chloride 1000 mg/Sodium Chloride 110 ml @ 220 mls/hr 1X ONCE 07/05/19 22:30 07/05/19 22:59 DC 07/05/19 22:11 220 MLS/HR Calcium Chloride 3000 mg/Sodium Chloride 1,030 ml @ 50 mls/hr [id number] 07/07/19 08:00 07/09/19 15:23 DC 07/09/19 02:17 50 MLS/HR Calcium Gluconate (Calcium Gluconate) 2,000 mg 1X ONCE 07/07/19 02:15 07/07/19 02:16 DC 07/07/19 02:19 2,000 MG Calcium Gluconate 1000 mg/Sodium Chloride 110 ml @ 220 mls/hr 1X ONCE 07/06/19 03:30 07/06/19 03:59 DC 07/06/19 03:21 220 MLS/HR Calcium Gluconate 2000 mg/Sodium Chloride 120 ml @ 220 mls/hr 1X ONCE 07/06/19 07:30 07/06/19 08:02 DC 07/06/19 09:05 220 MLS/HR Cefepime HCl (Maxipime) 2 gm Q12HR 07/13/19 09:00 07/27/19 09:58 DC 07/26/19 20:56 2 GM Cellulose (Surgicel Fibrillar 1x2) 1 each STK-MED ONCE 07/25/19 11:00 07/25/19 11:01 DC Cellulose (Surgicel Hemostat 2x14) 1 each STK-MED ONCE 08/15/19 10:58 08/15/19 10:59 DC Cellulose (Surgicel Hemostat 4x8) 1 each STK-MED ONCE 08/15/19 10:58 08/15/19 10:59 DC Chlorhexidine Gluconate (Peridex) 15 ml BID 10/01/19 09:00 10/01/19 07:58 DC Ciprofloxacin/ Dextrose 200 ml @ 200 mls/hr Q12HR 10/30/19 10:00 11/07/19 21:02 200 MLS/HR Cyclobenzaprine HCl (Flexeril) 10 mg PRN Q6HRS PRN 08/18/19 10:45 10/28/19 19:12 10 MG Daptomycin 410 mg/ Sodium Chloride 50 ml @ 100 mls/hr Q24H 09/25/19 14:00 09/28/19 08:30 DC 09/27/19 13:33 100 MLS/HR Daptomycin 430 mg/ Sodium Chloride 50 ml @ 100 mls/hr Q24H 08/13/19 13:00 08/18/19 20:58 DC 08/18/19 13:00 100 MLS/HR Daptomycin 450 mg/ Sodium Chloride 50 ml @ 100 mls/hr Q24H 09/04/19 09:00 09/08/19 08:30 DC 09/07/19 09:25 100 MLS/HR Daptomycin 485 mg/ Sodium Chloride 50 ml @ 100 mls/hr Q24H 08/22/19 11:00 08/30/19 07:44 DC 08/29/19 13:10 100 MLS/HR Daptomycin 500 mg/ Sodium Chloride 50 ml @ 100 mls/hr Q24H 11/02/19 09:00 11/07/19 09:14 100 MLS/HR Desflurane (Suprane) 90 ml STK-MED ONCE 10/18/19 10:18 10/18/19 10:19 DC Dexamethasone Sodium Phosphate (Decadron) 4 mg STK-MED ONCE 08/15/19 10:56 08/15/19 10:57 DC Dexmedetomidine HCl 400 mcg/ Sodium Chloride 100 ml @ 0 mls/hr CONT PRN 07/21/19 08:15 09/17/19 18:31 DC 09/17/19 12:57 8 MLS/HR Dextrose (Dextrose 50%-Water Syringe) 12.5 gm PRN Q15MIN PRN 07/04/19 09:30 Digoxin (Lanoxin) 125 mcg 1X ONCE 07/07/19 18:00 07/07/19 18:01 DC 07/07/19 17:10 125 MCG Diphenhydramine HCl (Benadryl) 25 mg 1X ONCE 11/03/19 19:00 11/03/19 19:01 DC 11/03/19 18:56 25 MG Duloxetine HCl (Cymbalta) 30 mg DAILY 08/28/19 14:00 08/31/19 10:25 DC 08/29/19 09:48 30 MG Enoxaparin Sodium (Lovenox 100mg Syringe) 100 mg Q12HR 08/09/19 21:00 UNV Enoxaparin Sodium (Lovenox 40mg Syringe) 40 mg Q24H 10/19/19 08:00 11/07/19 08:41 40 MG Ephedrine Sulfate (ePHEDrine PF IN SALINE SYRINGE) 50 mg STK-MED ONCE 10/18/19 14:45 10/18/19 14:45 DC Etomidate (Amidate) 8 mg 1X ONCE 07/11/19 08:30 07/11/19 08:31 DC 07/11/19 08:33 8 MG Fentanyl (Duragesic 12mcg/ Hr Patch) 1 patch Q3DAYS 10/28/19 09:00 11/06/19 09:00 1 PATCH Fentanyl (Duragesic 50mcg/ Hr Patch) 1 patch Q72H 09/22/19 21:00 10/01/19 12:00 DC 09/22/19 21:22 1 PATCH Fentanyl Citrate 30 ml @ 0 mls/hr CONT PRN 10/27/19 17:30 Fentanyl Citrate (Fentanyl 2ml Vial) 100 mcg STK-MED ONCE 10/18/19 07:44 10/18/19 07:44 DC Fentanyl Citrate (Fentanyl 5ml Vial) 250 mcg 1X ONCE 08/26/19 09:15 08/26/19 09:16 DC 08/26/19 09:30 50 MCG Flumazenil (Romazicon) 0.5 mg STK-MED ONCE 09/25/19 14:48 09/25/19 14:48 DC Fluoxetine HCl (PROzac) 20 mg QHS 09/22/19 21:00 11/07/19 21:02 20 MG Furosemide (Lasix) 40 mg 1X ONCE 10/12/19 15:30 10/12/19 15:33 DC 10/12/19 16:27 40 MG Haloperidol Lactate (Haldol Inj) 3 mg 1X ONCE 08/22/19 14:30 08/22/19 14:31 DC 08/22/19 14:37 3 MG Heparin Sodium (Porcine) (Hep Lock Adult) 500 unit STK-MED ONCE 07/26/19 09:29 07/26/19 09:30 DC Heparin Sodium (Porcine) (Heparin Sodium) 5,000 unit Q12HR 08/15/19 21:00 08/25/19 09:59 DC 08/24/19 20:57 5,000 UNIT Heparin Sodium (Porcine) 1000 unit/Sodium Chloride 1,001 ml @ 1,001 mls/hr 1X ONCE 10/18/19 06:00 10/18/19 06:59 DC Hydromorphone HCl (Dilaudid Standard BURR PICKER) 12 mg STK-MED ONCE 08/19/19 15:50 08/30/19 11:24 DC Hydromorphone HCl (Dilaudid) 1 mg PRN Q4HRS PRN 08/22/19 19:00 09/05/19 17:10 DC 09/05/19 06:25 1 MG Info (CONTRAST GIVEN -- Rx MONITORING) 1 each PRN DAILY PRN 07/18/19 11:45 07/20/19 11:44 DC Info (Icu Electrolyte Protocol) 1 ea CONT PRN PRN 07/17/19 13:15 Info (PHARMACY MONITORING -- do not chart) 1 each PRN DAILY PRN 08/12/19 15:45 09/13/19 14:14 DC Info (Tpn Per Pharmacy) 1 each PRN DAILY PRN 07/06/19 12:30 UNV Insulin Human Lispro (HumaLOG) 0-9 UNITS Q6HRS 07/04/19 09:30 11/07/19 14:42 4 UNITS Insulin Human Regular (HumuLIN R VIAL) 5 unit 1X ONCE 07/05/19 22:30 07/05/19 22:31 DC 07/05/19 22:14 5 UNIT Iohexol (Omnipaque 240 Mg/ml) 30 ml 1X ONCE 07/18/19 11:30 07/18/19 11:33 DC 07/18/19 11:30 30 ML Iohexol (Omnipaque 300 Mg/ml) 50 ml STK-MED ONCE 10/18/19 08:35 10/18/19 08:35 DC 10/18/19 13:30 10 ML Iohexol (Omnipaque 350 Mg/ml) 90 ml 1X ONCE 07/04/19 03:30 07/04/19 03:31 DC 07/04/19 03:25 90 ML Ketorolac Tromethamine (Toradol 30mg Vial) 30 mg 1X ONCE 07/04/19 03:00 07/04/19 03:01 DC 07/04/19 02:54 30 MG Lidocaine HCl (Buffered Lidocaine 1%) 3 ml 1X ONCE 10/03/19 13:00 10/03/19 13:01 DC 10/03/19 13:11 12 ML Lidocaine HCl (Glydo (Lidocaine) Jelly) 1 ramu 1X ONCE 07/08/19 14:30 07/08/19 14:31 DC 07/08/19 16:38 1 RAMU Lidocaine HCl (Lidocaine 1% 20ml Vial) 20 ml 1X ONCE 09/25/19 15:00 09/25/19 15:01 DC 09/25/19 15:30 20 ML Lidocaine HCl (Lidocaine Pf 2% Vial) 5 ml STK-MED ONCE 10/18/19 07:44 10/18/19 07:44 DC Lidocaine HCl (Xylocaine-Mpf 1% 2ml Vial) 2 ml PRN 1X PRN 08/15/19 07:00 08/16/19 06:59 DC Linezolid/Dextrose 300 ml @ 300 mls/hr Q12HR 09/04/19 09:00 09/07/19 08:11 DC 09/06/19 21:08 300 MLS/HR Lorazepam (Ativan Inj) 0.25 mg PRN Q4HRS PRN 09/21/19 07:30 11/07/19 03:28 0.25 MG Magnesium Sulfate 50 ml @ 25 mls/hr 1X ONCE 10/18/19 16:30 10/18/19 18:29 DC 10/18/19 17:02 25 MLS/HR Meropenem 1 gm/ Sodium Chloride 100 ml @ 200 mls/hr Q12HR 09/25/19 21:00 10/13/19 08:56 DC 10/13/19 08:27 200 MLS/HR Meropenem 500 mg/ Sodium Chloride 50 ml @ 100 mls/hr Q6HRS 10/16/19 18:00 11/08/19 06:15 100 MLS/HR Methylprednisolone Sodium Succinate (SOLU-Medrol 125MG VIAL) 125 mg 1X ONCE 10/01/19 06:15 10/01/19 06:16 DC 10/01/19 06:26 125 MG Metoclopramide HCl (Reglan Vial) 10 mg PRN Q3HRS PRN 08/27/19 16:45 09/01/19 04:25 10 MG Metoprolol Tartrate (Lopressor Vial) 5 mg PRN Q6HRS PRN 09/28/19 09:00 11/05/19 17:50 5 MG Metronidazole 100 ml @ 100 mls/hr Q8HRS 08/02/19 10:00 08/09/19 08:10 DC 08/09/19 06:04 100 MLS/HR Micafungin Sodium 100 mg/Dextrose 100 ml @ 100 mls/hr Q24H 10/18/19 08:30 11/07/19 08:43 100 MLS/HR Midazolam HCl (Versed) 2 mg 1X ONCE 09/25/19 15:00 09/25/19 15:01 DC 09/25/19 15:28 1 MG Midazolam HCl 100 mg/Sodium Chloride 100 ml @ 1 mls/hr CONT PRN 10/18/19 14:45 10/21/19 18:48 10 MLS/HR Midazolam HCl 50 mg/Sodium Chloride 50 ml @ 0 mls/hr CONT PRN 07/11/19 08:15 07/16/19 15:59 DC 07/14/19 22:39 7 MLS/HR Morphine Sulfate (Morphine Sulfate) 1 mg PRN Q1HR PRN 10/18/19 14:45 Multi-Ingred Cream/Lotion/Oil/ Oint (Artificial Tears Eye Ointment) 1 ramu PRN Q1HR PRN 07/13/19 17:30 09/21/19 14:39 DC 08/01/19 08:19 1 RAMU Naloxone HCl (Narcan) 0.4 mg PRN Q2MIN PRN 10/18/19 14:45 Norepinephrine Bitartrate 8 mg/ Dextrose 258 ml @ 13.332 mls/ hr CONT PRN 09/25/19 06:30 10/20/19 09:09 1.6 MLS/HR Ondansetron HCl (Zofran) 4 mg STK-MED ONCE 10/18/19 13:33 10/18/19 13:33 DC Pantoprazole Sodium (PROTONIX VIAL for IV PUSH) 40 mg DAILYAC 07/04/19 11:30 11/07/19 09:12 40 MG Phenylephrine HCl (Brayden-Synephrine Inj) 10 mg STK-MED ONCE 10/18/19 13:33 10/18/19 13:33 DC Phenylephrine HCl (PHENYLEPHRINE in 0.9% NACL PF) 1 mg STK-MED ONCE 10/18/19 14:44 10/18/19 14:45 DC Piperacillin Sod/ Tazobactam Sod 3.375 gm/Sodium Chloride 50 ml @ 100 mls/hr Q6HRS 09/14/19 12:00 09/22/19 07:26 DC 09/22/19 06:10 100 MLS/HR Piperacillin Sod/ Tazobactam Sod 4.5 gm/Sodium Chloride 100 ml @ 200 mls/hr 1X ONCE 07/04/19 06:00 07/04/19 06:29 DC 07/04/19 05:44 200 MLS/HR Potassium Chloride 110 meq/ Magnesium Sulfate 20 meq/ Multivitamins 10 ml/Chromium/ Copper/Manganese/ Seleni/Zn 1 ml/ Insulin Human Regular 15 unit/ Total Parenteral Nutrition/Amino Acids/Dextrose/ Fat Emulsion Intravenous 1,800 ml @ 75 mls/hr TPN CONT 09/11/19 22:00 09/12/19 21:59 DC 09/11/19 22:48 75 MLS/HR Potassium Chloride 15 meq/ Bicarbonate Dialysis Soln w/ out KCl 5,007.5 ml @ 1,000 mls/ hr Q5H1M 07/17/19 20:00 07/21/19 13:08 DC 07/20/19 18:14 1,000 MLS/HR Potassium Chloride 20 meq/ Bicarbonate Dialysis Soln w/ out KCl 5,010 ml @ 1,000 mls/hr Q5H1M 07/13/19 16:00 07/17/19 19:59 DC 07/17/19 14:54 1,000 MLS/HR Potassium Chloride 40 meq/ Potassium Acetate 60 meq/Magnesium Sulfate 10 meq/ Multivitamins 10 ml/Chromium/ Copper/Manganese/ Seleni/Zn 1 ml/ Insulin Human Regular 20 unit/ Total Parenteral Nutrition/Amino Acids/Dextrose/ Fat Emulsion Intravenous 1,800 ml @ 75 mls/hr TPN CONT 09/22/19 22:00 09/23/19 21:59 DC 09/23/19 00:03 75 MLS/HR Potassium Chloride 70 meq/ Magnesium Sulfate 20 meq/ Multivitamins 10 ml/Chromium/ Copper/Manganese/ Seleni/Zn 1 ml/ Insulin Human Regular 15 unit/ Total Parenteral Nutrition/Amino Acids/Dextrose/ Fat Emulsion Intravenous 1,800 ml @ 75 mls/hr TPN CONT 09/16/19 22:00 09/17/19 21:59 DC 09/16/19 23:13 75 MLS/HR Potassium Chloride 75 meq/ Magnesium Sulfate 15 meq/ Multivitamins 10 ml/Chromium/ Copper/Manganese/ Seleni/Zn 0.5 ml/ Insulin Human Regular 15 unit/ Total Parenteral Nutrition/Amino Acids/Dextrose/ Fat Emulsion Intravenous 1,920 ml @ 80 mls/hr TPN CONT 08/27/19 22:00 08/28/19 21:59 DC 08/27/19 22:41 80 MLS/HR Potassium Chloride 75 meq/ Magnesium Sulfate 15 meq/Calcium Gluconate 8 meq/ Multivitamins 10 ml/Chromium/ Copper/Manganese/ Seleni/Zn 0.5 ml/ Insulin Human Regular 15 unit/ Total Parenteral Nutrition/Amino Acids/Dextrose/ Fat Emulsion Intravenous 1,920 ml @ 80 mls/hr TPN CONT 08/25/19 22:00 08/26/19 21:59 DC 08/25/19 22:28 80 MLS/HR Potassium Chloride 75 meq/ Magnesium Sulfate 15 meq/Calcium Gluconate 8 meq/ Multivitamins 10 ml/Chromium/ Copper/Manganese/ Seleni/Zn 0.5 ml/ Insulin Human Regular 20 unit/ Total Parenteral Nutrition/Amino Acids/Dextrose/ Fat Emulsion Intravenous 1,920 ml @ 80 mls/hr TPN CONT 08/24/19 22:00 08/25/19 21:59 DC 08/24/19 22:00 80 MLS/HR Potassium Chloride 75 meq/ Magnesium Sulfate 15 meq/Calcium Gluconate 8 meq/ Multivitamins 10 ml/Chromium/ Copper/Manganese/ Seleni/Zn 0.5 ml/ Insulin Human Regular 25 unit/ Total Parenteral Nutrition/Amino Acids/Dextrose/ Fat Emulsion Intravenous 1,920 ml @ 80 mls/hr TPN CONT 08/22/19 22:00 08/23/19 21:59 DC 08/22/19 23:08 80 MLS/HR Potassium Chloride 75 meq/ Magnesium Sulfate 20 meq/Calcium Gluconate 10 meq/ Multivitamins 10 ml/Chromium/ Copper/Manganese/ Seleni/Zn 0.5 ml/ Insulin Human Regular 25 unit/ Total Parenteral Nutrition/Amino Acids/Dextrose/ Fat Emulsion Intravenous 1,920 ml @ 80 mls/hr TPN CONT 08/21/19 22:00 08/22/19 21:59 DC 08/21/19 22:04 80 MLS/HR Potassium Chloride 75 meq/ Magnesium Sulfate 20 meq/Calcium Gluconate 10 meq/ Multivitamins 10 ml/Chromium/ Copper/Manganese/ Seleni/Zn 0.5 ml/ Insulin Human Regular 30 unit/ Total Parenteral Nutrition/Amino Acids/Dextrose/ Fat Emulsion Intravenous 1,920 ml @ 80 mls/hr TPN CONT 08/20/19 22:00 08/21/19 22:00 DC 08/20/19 21:51 80 MLS/HR Potassium Chloride 80 meq/ Magnesium Sulfate 20 meq/ Multivitamins 10 ml/Chromium/ Copper/Manganese/ Seleni/Zn 0.5 ml/ Insulin Human Regular 15 unit/ Total Parenteral Nutrition/Amino Acids/Dextrose/ Fat Emulsion Intravenous 1,920 ml @ 80 mls/hr TPN CONT 08/30/19 22:00 08/31/19 21:59 DC 08/30/19 21:40 80 MLS/HR Potassium Chloride 80 meq/ Magnesium Sulfate 20 meq/ Multivitamins 10 ml/Chromium/ Copper/Manganese/ Seleni/Zn 1 ml/ Insulin Human Regular 15 unit/ Total Parenteral Nutrition/Amino Acids/Dextrose/ Fat Emulsion Intravenous 1,800 ml @ 75 mls/hr TPN CONT 09/18/19 22:00 09/19/19 21:59 DC 09/18/19 21:54 75 MLS/HR Potassium Chloride 90 meq/ Magnesium Sulfate 20 meq/ Multivitamins 10 ml/Chromium/ Copper/Manganese/ Seleni/Zn 1 ml/ Insulin Human Regular 15 unit/ Total Parenteral Nutrition/Amino Acids/Dextrose/ Fat Emulsion Intravenous 1,800 ml @ 75 mls/hr TPN CONT 09/07/19 22:00 09/08/19 21:59 DC 09/07/19 22:28 75 MLS/HR Potassium Chloride 90 meq/ Magnesium Sulfate 20 meq/ Multivitamins 10 ml/Chromium/ Copper/Manganese/ Seleni/Zn 1 ml/ Insulin Human Regular 20 unit/ Total Parenteral Nutrition/Amino Acids/Dextrose/ Fat Emulsion Intravenous 1,800 ml @ 75 mls/hr TPN CONT 09/21/19 22:00 09/22/19 21:59 DC 09/21/19 23:13 75 MLS/HR Potassium Chloride/Water 100 ml @ 100 mls/hr Q1H 10/05/19 08:00 10/05/19 09:59 DC 10/05/19 09:12 100 MLS/HR Potassium Phosphate 20 mmol/ Sodium Chloride 106.6667 ml @ 51.667 m... 1X ONCE 07/13/19 13:00 07/13/19 15:03 DC 07/13/19 12:51 51.667 MLS/HR Potassium Acetate 30 meq/Magnesium Sulfate 14 meq/ Multivitamins 10 ml/Chromium/ Copper/Manganese/ Seleni/Zn 1 ml/ Insulin Human Regular 15 unit/ Sodium Chloride 20 meq/Potassium Chloride 30 meq/ Total Parenteral Nutrition/Amino Acids/Dextrose/ Fat Emulsion Intravenous 1,920 ml @ 80 mls/hr TPN CONT 10/11/19 22:00 10/12/19 21:59 DC 10/11/19 21:46 80 MLS/HR Potassium Acetate 30 meq/Magnesium Sulfate 20 meq/ Calcium Gluconate 10 meq/ Multivitamins 10 ml/Chromium/ Copper/Manganese/ Seleni/Zn 0.5 ml/ Insulin Human Regular 30 unit/ Potassium Chloride 30 meq/ Total Parenteral Nutrition/Amino Acids/Dextrose/ Fat Emulsion Intravenous 1,920 ml @ 80 mls/hr TPN CONT 08/19/19 22:00 08/20/19 21:59 DC 08/19/19 22:34 80 MLS/HR Potassium Acetate 40 meq/Magnesium Sulfate 10 meq/ Multivitamins 10 ml/Chromium/ Copper/Manganese/ Seleni/Zn 1 ml/ Insulin Human Regular 20 unit/ Total Parenteral Nutrition/Amino Acids/Dextrose/ Fat Emulsion Intravenous 1,920 ml @ 80 mls/hr TPN CONT 10/04/19 22:00 10/05/19 21:59 DC 10/04/19 21:32 80 MLS/HR Potassium Acetate 40 meq/Magnesium Sulfate 5 meq/ Multivitamins 10 ml/Chromium/ Copper/Manganese/ Seleni/Zn 1 ml/ Insulin Human Regular 30 unit/ Total Parenteral Nutrition/Amino Acids/Dextrose/ Fat Emulsion Intravenous 1,920 ml @ 80 mls/hr TPN CONT 10/03/19 22:00 10/04/19 19:34 DC 10/03/19 21:54 80 MLS/HR Potassium Acetate 55 meq/Magnesium Sulfate 20 meq/ Calcium Gluconate 10 meq/ Multivitamins 10 ml/Chromium/ Copper/Manganese/ Seleni/Zn 0.5 ml/ Insulin Human Regular 30 unit/ Total Parenteral Nutrition/Amino Acids/Dextrose/ Fat Emulsion Intravenous 1,920 ml @ 80 mls/hr TPN CONT 08/18/19 22:00 08/19/19 21:59 DC 08/19/19 01:00 80 MLS/HR Potassium Acetate 55 meq/Magnesium Sulfate 20 meq/ Calcium Gluconate 10 meq/ Multivitamins 10 ml/Chromium/ Copper/Manganese/ Seleni/Zn 0.5 ml/ Insulin Human Regular 35 unit/ Total Parenteral Nutrition/Amino Acids/Dextrose/ Fat Emulsion Intravenous 1,920 ml @ 80 mls/hr TPN CONT 08/16/19 22:00 08/17/19 21:59 DC 08/16/19 22:02 80 MLS/HR Potassium Acetate 60 meq/Magnesium Sulfate 10 meq/ Multivitamins 10 ml/Chromium/ Copper/Manganese/ Seleni/Zn 1 ml/ Insulin Human Regular 20 unit/ Total Parenteral Nutrition/Amino Acids/Dextrose/ Fat Emulsion Intravenous 1,920 ml @ 80 mls/hr TPN CONT 10/05/19 22:00 10/06/19 21:59 DC 10/05/19 21:55 80 MLS/HR Potassium Acetate 60 meq/Magnesium Sulfate 14 meq/ Multivitamins 10 ml/Chromium/ Copper/Manganese/ Seleni/Zn 1 ml/ Insulin Human Regular 15 unit/ Sodium Chloride 20 meq/Total Parenteral Nutrition/Amino Acids/Dextrose/ Fat Emulsion Intravenous 1,920 ml @ 80 mls/hr TPN CONT 10/10/19 22:00 10/11/19 21:59 DC 10/10/19 21:54 80 MLS/HR Potassium Acetate 60 meq/Magnesium Sulfate 14 meq/ Multivitamins 10 ml/Chromium/ Copper/Manganese/ Seleni/Zn 1 ml/ Insulin Human Regular 15 unit/ Total Parenteral Nutrition/Amino Acids/Dextrose/ Fat Emulsion Intravenous 1,920 ml @ 80 mls/hr TPN CONT 10/09/19 22:00 10/10/19 21:59 DC 10/09/19 22:22 80 MLS/HR Potassium Acetate 60 meq/Magnesium Sulfate 14 meq/ Multivitamins 10 ml/Chromium/ Copper/Manganese/ Seleni/Zn 1 ml/ Insulin Human Regular 20 unit/ Total Parenteral Nutrition/Amino Acids/Dextrose/ Fat Emulsion Intravenous 1,920 ml @ 80 mls/hr TPN CONT 10/06/19 22:00 10/07/19 21:59 DC 10/06/19 22:26 80 MLS/HR Potassium Acetate 60 meq/Magnesium Sulfate 5 meq/ Multivitamins 10 ml/Chromium/ Copper/Manganese/ Seleni/Zn 1 ml/ Insulin Human Regular 30 unit/ Total Parenteral Nutrition/Amino Acids/Dextrose/ Fat Emulsion Intravenous 1,920 ml @ 80 mls/hr TPN CONT 09/24/19 22:00 09/25/19 21:59 DC 09/24/19 21:54 80 MLS/HR Potassium Acetate 65 meq/Magnesium Sulfate 20 meq/ Calcium Gluconate 10 meq/ Multivitamins 10 ml/Chromium/ Copper/Manganese/ Seleni/Zn 0.5 ml/ Insulin Human Regular 30 unit/ Total Parenteral Nutrition/Amino Acids/Dextrose/ Fat Emulsion Intravenous 1,920 ml @ 80 mls/hr TPN CONT 08/17/19 22:00 08/18/19 21:59 DC 08/17/19 22:22 80 MLS/HR Potassium Acetate 80 meq/Magnesium Sulfate 5 meq/ Multivitamins 10 ml/Chromium/ Copper/Manganese/ Seleni/Zn 1 ml/ Insulin Human Regular 20 unit/ Total Parenteral Nutrition/Amino Acids/Dextrose/ Fat Emulsion Intravenous 1,920 ml @ 80 mls/hr TPN CONT 09/23/19 22:00 09/24/19 21:59 DC 09/23/19 21:59 80 MLS/HR Prochlorperazine Edisylate (Compazine) 5 mg PACU PRN PRN 08/15/19 07:00 08/16/19 06:59 DC Propofol (Diprivan) 200 mg STK-MED ONCE 10/18/19 07:44 10/18/19 07:44 DC Ringer's Solution 1,000 ml @ 30 mls/hr Q24H 08/15/19 07:00 08/15/19 18:59 DC Rocuronium [place] (Zemuron) 100 mg STK-MED ONCE 10/18/19 07:44 10/18/19 07:44 DC Saliva Substitute (Biotene Moisturizing Mouth) 2 spray PRN Q15MIN PRN 09/08/19 11:00 Sevoflurane (Ultane) 60 ml STK-MED ONCE 08/15/19 12:26 08/15/19 12:27 DC Sodium Bicarbonate 150 meq/Dextrose 1,150 ml @ 75 mls/hr 1X ONCE 10/18/19 16:30 10/19/19 07:49 DC 10/18/19 20:02 75 MLS/HR Sodium Bicarbonate 50 meq/Sodium Chloride 1,050 ml @ 75 mls/hr Q14H 07/06/19 07:30 07/11/19 10:28 DC 07/10/19 21:10 75 MLS/HR Sodium Acetate 50 meq/Potassium Acetate 55 meq/ Magnesium Sulfate 20 meq/Calcium Gluconate 10 meq/ Multivitamins 10 ml/Chromium/ Copper/Manganese/ Seleni/Zn 0.5 ml/ Insulin Human Regular 35 unit/ Total Parenteral Nutrition/Amino Acids/Dextrose/ Fat Emulsion Intravenous 1,800 ml @ 75 mls/hr TPN CONT 08/13/19 22:00 08/14/19 21:59 DC 08/13/19 22:03 75 MLS/HR Sodium Bicarbonate (Sodium Bicarb Adult 8.4% Syr) 100 meq 1X ONCE 10/18/19 16:30 10/18/19 16:31 DC 10/18/19 17:07 100 MEQ Sodium Chloride (Normal Saline Flush) 3 ml QSHIFT PRN 10/18/19 14:45 Sodium Chloride 80 meq/Potassium Chloride 30 meq/ Potassium Acetate 30 meq/Magnesium Sulfate 14 meq/ Multivitamins 10 ml/Chromium/ Copper/Manganese/ Seleni/Zn 1 ml/ Insulin Human Regular 15 unit/ Total Parenteral Nutrition/Amino Acids/Dextrose/ Fat Emulsion Intravenous 1,920 ml @ 80 mls/hr TPN CONT 10/19/19 22:00 10/20/19 21:59 DC 10/19/19 23:05 80 MLS/HR Sodium Chloride 90 meq/Calcium Gluconate 10 meq/ Multivitamins 10 ml/Chromium/ Copper/Manganese/ Seleni/Zn 0.5 ml/ Total Parenteral Nutrition/Amino Acids/Dextrose/ Fat Emulsion Intravenous 1,512 ml @ 63 mls/hr TPN CONT 07/06/19 22:00 07/07/19 21:59 DC 07/06/19 22:06 63 MLS/HR Sodium Chloride 90 meq/Calcium Gluconate 10 meq/ Multivitamins 10 ml/Chromium/ Copper/Manganese/ Seleni/Zn 1 ml/ Total Parenteral Nutrition/Amino Acids/Dextrose/ Fat Emulsion Intravenous 55.005 ml @ 2.292 mls/hr TPN CONT 07/06/19 22:00 07/06/19 12:33 DC Sodium Chloride 90 meq/Magnesium Sulfate 10 meq/ Calcium Gluconate 20 meq/ Multivitamins 10 ml/Chromium/ Copper/Manganese/ Seleni/Zn 0.5 ml/ Total Parenteral Nutrition/Amino Acids/Dextrose/ Fat Emulsion Intravenous 1,512 ml @ 63 mls/hr TPN CONT 07/07/19 22:00 07/08/19 21:59 DC 07/07/19 22:25 63 MLS/HR Sodium Chloride 90 meq/Magnesium Sulfate 12 meq/ Calcium Gluconate 15 meq/ Multivitamins 10 ml/Chromium/ Copper/Manganese/ Seleni/Zn 0.5 ml/ Insulin Human Regular 25 unit/ Total Parenteral Nutrition/Amino Acids/Dextrose/ Fat Emulsion Intravenous 1,400 ml @ 58.333 mls/ hr TPN CONT 07/27/19 22:00 07/28/19 21:59 DC 07/27/19 21:41 58.333 MLS/HR Sodium Chloride 90 meq/Potassium Chloride 15 meq/ Magnesium Sulfate 12 meq/Calcium Gluconate 15 meq/ Multivitamins 10 ml/Chromium/ Copper/Manganese/ Seleni/Zn 0.5 ml/ Insulin Human Regular 25 unit/ Total Parenteral Nutrition/Amino Acids/Dextrose/ Fat Emulsion Intravenous 1,400 ml @ 58.333 mls/ hr TPN CONT 07/26/19 22:00 07/27/19 21:59 DC 07/26/19 22:13 58.333 MLS/HR Sodium Chloride 90 meq/Potassium Chloride 15 meq/ Potassium Phosphate 10 mmol/ Magnesium Sulfate 8 meq/Calcium Gluconate 15 meq/ Multivitamins 10 ml/Chromium/ Copper/Manganese/ Seleni/Zn 0.5 ml/ Insulin Human Regular 25 unit/ Total Parenteral Nutrition/Amino Acids/Dextrose/ Fat Emulsion Intravenous 1,400 ml @ 58.333 mls/ hr TPN CONT 07/24/19 22:00 07/25/19 21:59 DC 07/24/19 21:20 58.333 MLS/HR Sodium Chloride 90 meq/Potassium Chloride 15 meq/ Potassium Phosphate 10 mmol/ Magnesium Sulfate 10 meq/Calcium Gluconate 20 meq/ Multivitamins 10 ml/Chromium/ Copper/Manganese/ Seleni/Zn 0.5 ml/ Total Parenteral Nutrition/Amino Acids/Dextrose/ Fat Emulsion Intravenous 1,400 ml @ 58.333 mls/ hr TPN CONT 07/11/19 22:00 07/12/19 21:59 DC 07/11/19 21:42 58.333 MLS/HR Sodium Chloride 90 meq/Potassium Chloride 15 meq/ Potassium Phosphate 10 mmol/ Magnesium Sulfate 12 meq/Calcium Gluconate 15 meq/ Multivitamins 10 ml/Chromium/ Copper/Manganese/ Seleni/Zn 0.5 ml/ Insulin Human Regular 25 unit/ Total Parenteral Nutrition/Amino Acids/Dextrose/ Fat Emulsion Intravenous 1,400 ml @ 58.333 mls/ hr TPN CONT 07/25/19 22:00 07/26/19 21:59 DC 07/25/19 22:24 58.333 MLS/HR Sodium Chloride 90 meq/Potassium Chloride 15 meq/ Potassium Phosphate 15 mmol/ Magnesium Sulfate 10 meq/Calcium Gluconate 15 meq/ Multivitamins 10 ml/Chromium/ Copper/Manganese/ Seleni/Zn 0.5 ml/ Total Parenteral Nutrition/Amino Acids/Dextrose/ Fat Emulsion Intravenous 1,400 ml @ 58.333 mls/ hr TPN CONT 07/12/19 22:00 07/13/19 21:59 DC 07/12/19 22:17 58.333 MLS/HR Sodium Chloride 90 meq/Potassium Chloride 15 meq/ Potassium Phosphate 15 mmol/ Magnesium Sulfate 10 meq/Calcium Gluconate 20 meq/ Multivitamins 10 ml/Chromium/ Copper/Manganese/ Seleni/Zn 0.5 ml/ Total Parenteral Nutrition/Amino Acids/Dextrose/ Fat Emulsion Intravenous 1,200 ml @ 50 mls/hr TPN CONT 07/10/19 22:00 07/10/19 14:17 DC Sodium Chloride 90 meq/Potassium Chloride 15 meq/ Potassium Phosphate 18 mmol/ Magnesium Sulfate 8 meq/Calcium Gluconate 15 meq/ Multivitamins 10 ml/Chromium/ Copper/Manganese/ Seleni/Zn 0.5 ml/ Insulin Human Regular 10 unit/ Total Parenteral Nutrition/Amino Acids/Dextrose/ Fat Emulsion Intravenous 1,400 ml @ 58.333 mls/ hr TPN CONT 07/15/19 22:00 07/16/19 21:59 DC 07/15/19 21:43 58.333 MLS/HR Sodium Chloride 90 meq/Potassium Chloride 15 meq/ Potassium Phosphate 18 mmol/ Magnesium Sulfate 8 meq/Calcium Gluconate 15 meq/ Multivitamins 10 ml/Chromium/ Copper/Manganese/ Seleni/Zn 0.5 ml/ Insulin Human Regular 15 unit/ Total Parenteral Nutrition/Amino Acids/Dextrose/ Fat Emulsion Intravenous 1,400 ml @ 58.333 mls/ hr TPN CONT 07/18/19 22:00 07/19/19 21:59 DC 07/18/19 21:47 58.333 MLS/HR Sodium Chloride 90 meq/Potassium Chloride 15 meq/ Potassium Phosphate 18 mmol/ Magnesium Sulfate 8 meq/Calcium Gluconate 15 meq/ Multivitamins 10 ml/Chromium/ Copper/Manganese/ Seleni/Zn 0.5 ml/ Insulin Human Regular 20 unit/ Total Parenteral Nutrition/Amino Acids/Dextrose/ Fat Emulsion Intravenous 1,400 ml @ 58.333 mls/ hr TPN CONT 07/21/19 22:00 07/22/19 21:59 DC 07/21/19 22:45 58.333 MLS/HR Sodium Chloride 90 meq/Potassium Chloride 15 meq/ Potassium Phosphate 18 mmol/ Magnesium Sulfate 8 meq/Calcium Gluconate 15 meq/ Multivitamins 10 ml/Chromium/ Copper/Manganese/ Seleni/Zn 0.5 ml/ Total Parenteral Nutrition/Amino Acids/Dextrose/ Fat Emulsion Intravenous 1,400 ml @ 58.333 mls/ hr TPN CONT 07/14/19 22:00 07/15/19 21:59 DC 07/14/19 22:00 58.333 MLS/HR Sodium Chloride 90 meq/Potassium Chloride 30 meq/ Potassium Acetate 30 meq/Magnesium Sulfate 15 meq/ Multivitamins 10 ml/Chromium/ Copper/Manganese/ Seleni/Zn 1 ml/ Insulin Human Regular 15 unit/ Total Parenteral Nutrition/Amino Acids/Dextrose/ Fat Emulsion Intravenous 1,680 ml @ 70 mls/hr TPN CONT 11/03/19 22:00 11/04/19 21:59 DC 11/03/19 22:06 70 MLS/HR Sodium Chloride 90 meq/Potassium Phosphate 15 mmol/ Magnesium Sulfate 12 meq/Calcium Gluconate 15 meq/ Multivitamins 10 ml/Chromium/ Copper/Manganese/ Seleni/Zn 0.5 ml/ Insulin Human Regular 30 unit/ Total Parenteral Nutrition/Amino Acids/Dextrose/ Fat Emulsion Intravenous 1,400 ml @ 58.333 mls/ hr TPN CONT 07/29/19 22:00 07/30/19 21:59 DC 07/29/19 21:49 58.333 MLS/HR Sodium Chloride 90 meq/Potassium Phosphate 15 mmol/ Magnesium Sulfate 12 meq/Calcium Gluconate 15 meq/ Multivitamins 10 ml/Chromium/ Copper/Manganese/ Seleni/Zn 0.5 ml/ Insulin Human Regular 40 unit/ Total Parenteral Nutrition/Amino Acids/Dextrose/ Fat Emulsion Intravenous 1,400 ml @ 58.333 mls/ hr TPN CONT 07/30/19 22:00 07/31/19 21:59 DC 07/30/19 21:21 58.333 MLS/HR Sodium Chloride 90 meq/Potassium Phosphate 19 mmol/ Magnesium Sulfate 12 meq/Calcium Gluconate 15 meq/ Multivitamins 10 ml/Chromium/ Copper/Manganese/ Seleni/Zn 0.5 ml/ Insulin Human Regular 40 unit/ Total Parenteral Nutrition/Amino Acids/Dextrose/ Fat Emulsion Intravenous 1,400 ml @ 58.333 mls/ hr TPN CONT 07/31/19 22:00 08/01/19 21:59 DC 07/31/19 21:54 58.333 MLS/HR Sodium Chloride 90 meq/Potassium Phosphate 5 mmol/ Magnesium Sulfate 12 meq/Calcium Gluconate 15 meq/ Multivitamins 10 ml/Chromium/ Copper/Manganese/ Seleni/Zn 0.5 ml/ Insulin Human Regular 30 unit/ Total Parenteral Nutrition/Amino Acids/Dextrose/ Fat Emulsion Intravenous 1,400 ml @ 58.333 mls/ hr TPN CONT 07/28/19 22:00 07/29/19 21:59 DC 07/28/19 22:08 58.333 MLS/HR Sodium Chloride 100 meq/Potassium Chloride 30 meq/ Potassium Acetate 30 meq/Magnesium Sulfate 12 meq/ Multivitamins 10 ml/Chromium/ Copper/Manganese/ Seleni/Zn 1 ml/ Insulin Human Regular 15 unit/ Total Parenteral Nutrition/Amino Acids/Dextrose/ Fat Emulsion Intravenous 1,680 ml @ 70 mls/hr TPN CONT 10/23/19 22:00 10/24/19 21:59 DC 10/23/19 21:23 70 MLS/HR Sodium Chloride 100 meq/Potassium Chloride 40 meq/ Magnesium Sulfate 15 meq/Calcium Gluconate 15 meq/ Multivitamins 10 ml/Chromium/ Copper/Manganese/ Seleni/Zn 0.5 ml/ Insulin Human Regular 35 unit/ Total Parenteral Nutrition/Amino Acids/Dextrose/ Fat Emulsion Intravenous 1,400 ml @ 58.333 mls/ hr TPN CONT 08/07/19 22:00 08/08/19 21:59 DC 08/07/19 22:46 58.333 MLS/HR Sodium Chloride 100 meq/Potassium Chloride 40 meq/ Magnesium Sulfate 20 meq/Calcium Gluconate 10 meq/ Multivitamins 10 ml/Chromium/ Copper/Manganese/ Seleni/Zn 0.5 ml/ Insulin Human Regular 35 unit/ Total Parenteral Nutrition/Amino Acids/Dextrose/ Fat Emulsion Intravenous 1,400 ml @ 58.333 mls/ hr TPN CONT 08/11/19 22:00 08/12/19 21:59 DC 08/12/19 00:06 58.333 MLS/HR Sodium Chloride 100 meq/Potassium Chloride 40 meq/ Magnesium Sulfate 20 meq/Calcium Gluconate 15 meq/ Multivitamins 10 ml/Chromium/ Copper/Manganese/ Seleni/Zn 0.5 ml/ Insulin Human Regular 35 unit/ Total Parenteral Nutrition/Amino Acids/Dextrose/ Fat Emulsion Intravenous 1,400 ml @ 58.333 mls/ hr TPN CONT 08/10/19 22:00 08/11/19 21:59 DC 08/10/19 22:27 58.333 MLS/HR Sodium Chloride 100 meq/Potassium Phosphate 10 mmol/ Magnesium Sulfate 12 meq/Calcium Gluconate 15 meq/ Multivitamins 10 ml/Chromium/ Copper/Manganese/ Seleni/Zn 0.5 ml/ Insulin Human Regular 35 unit/ Potassium Chloride 20 meq/ Total Parenteral Nutrition/Amino Acids/Dextrose/ Fat Emulsion Intravenous 1,400 ml @ 58.333 mls/ hr TPN CONT 08/04/19 22:00 08/05/19 21:59 DC 08/04/19 22:10 58.333 MLS/HR Sodium Chloride 100 meq/Potassium Phosphate 19 mmol/ Magnesium Sulfate 12 meq/Calcium Gluconate 15 meq/ Multivitamins 10 ml/Chromium/ Copper/Manganese/ Seleni/Zn 0.5 ml/ Insulin Human Regular 40 unit/ Potassium Chloride 20 meq/ Total Parenteral Nutrition/Amino Acids/Dextrose/ Fat Emulsion Intravenous 1,400 ml @ 58.333 mls/ hr TPN CONT 08/03/19 22:00 08/04/19 21:59 DC 08/03/19 21:20 58.333 MLS/HR Sodium Chloride 100 meq/Potassium Phosphate 5 mmol/ Magnesium Sulfate 12 meq/Calcium Gluconate 15 meq/ Multivitamins 10 ml/Chromium/ Copper/Manganese/ Seleni/Zn 0.5 ml/ Insulin Human Regular 35 unit/ Potassium Chloride 20 meq/ Total Parenteral Nutrition/Amino Acids/Dextrose/ Fat Emulsion Intravenous 1,400 ml @ 58.333 mls/ hr TPN CONT 08/05/19 22:00 08/06/19 21:59 DC 08/05/19 22:59 58.333 MLS/HR Sodium Chloride 110 meq/Potassium Chloride 30 meq/ Potassium Acetate 30 meq/Magnesium Sulfate 15 meq/ Multivitamins 10 ml/Chromium/ Copper/Manganese/ Seleni/Zn 1 ml/ Insulin Human Regular 15 unit/ Total Parenteral Nutrition/Amino Acids/Dextrose/ Fat Emulsion Intravenous 1,680 ml @ 70 mls/hr TPN CONT 11/05/19 22:00 11/06/19 21:59 DC 11/05/19 22:01 70 MLS/HR Sodium Chloride 110 meq/Sodium Phosphate 10 mmol/ Potassium Chloride 30 meq/ Potassium Acetate 30 meq/Magnesium Sulfate 15 meq/ Multivitamins 10 ml/Chromium/ Copper/Manganese/ Seleni/Zn 1 ml/ Insulin Human Regular 15 unit/ Total Parenteral Nutrition/Amino Acids/Dextrose/ Fat Emulsion Intravenous 1,680 ml @ 70 mls/hr TPN CONT 11/06/19 22:00 11/07/19 21:59 DC 11/06/19 22:03 70 MLS/HR Sodium Chloride 120 meq/Sodium Phosphate 10 mmol/ Potassium Chloride 30 meq/ Potassium Acetate 30 meq/Magnesium Sulfate 15 meq/ Multivitamins 10 ml/Chromium/ Copper/Manganese/ Seleni/Zn 1 ml/ Insulin Human Regular 15 unit/ Total Parenteral Nutrition/Amino Acids/Dextrose/ Fat Emulsion Intravenous 1,680 ml @ 70 mls/hr TPN CONT 11/07/19 22:00 11/08/19 21:59 11/07/19 22:08 70 MLS/HR Succinylcholine Chloride (Anectine) 120 mg 1X ONCE 07/11/19 08:30 07/11/19 08:31 DC 07/11/19 08:34 120 MG Vancomycin HCl (Vanco Per Pharmacy) 1 each PRN DAILY PRN 10/30/19 09:15 11/02/19 07:41 DC 11/01/19 02:46 1 EACH Vancomycin HCl (Vancomycin Random Level) 1 each 1X ONCE 11/01/19 01:00 11/01/19 01:01 DC 11/01/19 01:00 1 EACH Vancomycin HCl (Vancomycin Trough Level) 1 each 1X ONCE 11/02/19 09:30 11/02/19 09:31 Cancel Vancomycin HCl 1.5 gm/Sodium Chloride 500 ml @ 250 mls/hr Q12H 11/01/19 10:00 11/02/19 07:41 DC 11/01/19 22:07 250 MLS/HR Vancomycin HCl 2 gm/Sodium Chloride 500 ml @ 250 mls/hr 1X ONCE 10/30/19 10:00 10/30/19 11:59 DC 10/30/19 10:34 250 MLS/HR Vasopressin (Vasostrict) 20 unit STK-MED ONCE 10/18/19 12:23 10/18/19 12:23 DC Vasopressin 20 unit/Dextrose 101 ml @ 12 mls/hr CONT PRN 10/18/19 15:30 10/25/19 04:17 12 MLS/HR Vecuronium [place] (Norcuron Bolus) 6 mg PRN Q6HRS PRN 08/25/19 19:15 08/25/19 19:35 DC Labs: Lab Laboratory Tests Test 11/07/19 14:39 11/07/19 18:03 11/07/19 23:59 11/08/19 05:22 Glucose (Fingerstick) 151 mg/dL (70-99) 128 mg/dL (70-99) 138 mg/dL (70-99) 141 mg/dL (70-99) Micro NEG ALEXANDRA 56 PSEUDOMONAS AERUGINOSA ANTIBIOTIC RESULT INTERPRETATION AMIKACIN <=16 S AZTREONAM >16 R CEFTAZIDIME >16 R CIPROFLOXACIN <=0.25 S CEFEPIME 16 I GENTAMICIN <=2 S LEVOFLOXACIN <=0.5 S CONTINUED ON NEXT PAGE RUN DATE: 09/28/19 [facility] *LIVE* PAGE 2 RUN TIME: 1120 Specimen Inquiry SPEC: [id number] PATIENT: SCOTT CUELLAR [id number] (Continued) Procedure Result ANTIMICROBIAL SUSCEPTIBILITY Preliminary (continued) MEROPENEM <=1 S PIPERACILLIN/TAZOBACTAM 64 S TOBRAMYCIN <=2 S Unless otherwise specified, Testing Performed by: [address] [address] For Inquires, the Physician may contact the Microbiology department at [phone] Objective: Assessment: Patient with prolonged hospitalization more than 3 months Multiple medical problems Multiple surgical procedures S/P Exp. 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 parapsilosis & PSAE (I-merrem/ceftazidime/AZT/cefepime)) Leucocytosis -trending upward Fever Acute gallstone pancreatitis with persistent necrosis - 07/27. CT A/P Increased ascites. 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 status post KAYLIN drain placement; C. parapsilosis. s/p drain 08/23 + yeast & high amylase; s/p additional drain on 08/25. Drains removed. -08/23. fluid devyn parapsilosis fluid, amylase high - 09/23 showed multiple pseudocysts, slight larger on the right. s/p drains x 3, 09/24. + PSAE (MDRO-R Cefepime, Zosyn ALEXANDRA < 64) and yeast, -09/24 s/p drain replacement x 3; fluid cult PSAE (MDRO), yeast; treated -10/29 CT A/P shows smaller fluid collections. Ascites s/p paracentesis 08/02 & 08/23. C. parapsilosis Cholelithiasis with thickening of the gallbladder wall. JUANA, Hyperkalemia, Metabolic acidosis off dialysis Acute hypoxic resp failure. trach/vent. sputum 09/30 + PSAE (I merrem) Pleural effusion status post CTS left side Abdominal fluid culture MDRO Pseudomonas, yeast Plan: Plan of Care DC Meropenem, cipro (10/29), will start avycaz with history of drug-resistant Pseudomonas cont micafungin and dapto CK 11 on 11/05 repeat bc f/u psae in sputum BC from 11/01 neg to date Monitor WBC/temp Wound care /drain management as directed Leucocytosis could be from not adequate drainage of intraabdo fluid/abscess ... 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
[2019-11-08] MEDS ORDERED: ALTEPLASE 1MG SYRINGE. INT CAT ONE ×2 (09:30→12:00)
[2019-11-08] MEDS: PANTOPRAZOLE IV PUSH 40 MG VIAL. IVP SCH (09:30)
[2019-11-08] MEDS: ENOXAPARIN 40 MG/0.4 ML SYRINGE. SQ SCH (09:30)
[2019-11-08] MEDS: MICAFUNGIN 100 MG in IV DEXTROSE 5% 100ML 100 ML IV SCH (09:31)
[2019-11-08] MEDS: DAPTOmycin (GENERIC) IVPB 500 MG in IV NORMAL SALINE 50ML 50 ML IV SCH (09:31)
--- NOTE | 2019-11-08 10:58 | NUR ---
SS following up with discharge planning. SS reviewed pt chart and discussed with pt RN. Pt white blood count increased and per RN, pt has had fevers. Pt may have KAYLIN drains removed today pending physician decision. Per RN, one Mook drain fell out. Pt currently has chest tube, G tube, one Mook drain, and three KAYLIN drains. Pt on TPN, IV Daptomycin, and IV Micafungin. Pt max assist with PT/OT/ and staff. Pt currently maintaining on two liters nasal canula. Per Med Assist they are working with family to complete disability application. Pt is self pay. SS will continue to follow for discharge planning.
[2019-11-08] MEDS: TPN PER PHARMACY MC PRN (11:08)
--- NOTE | 2019-11-08 11:10 | NUR ---
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, 8 inches Weight: 88.5 kg Current diet: NPO LABS: Sodium: 136 Potassium: 4.2 Chloride: 102 Calcium: 9.6 Corrected Calcium: 11.92 Magnesium: 2.1 CO2: 30 SCr: 0.5 Glucose: 120-129 Albumin: 1.1 AST: 25 ALT: 37 TPN FORMULA: TPN TYPE: Central Continuous AMINO ACIDS: 85 gm DEXTROSE: 250 gm LIPIDS: 20 gm SODIUM CHLORIDE: 120 mEq SODIUM ACETATE: - mEq SODIUM PHOSPHATE: 10 mmol POTASSIUM CHLORIDE: 30 mEq POTASSIUM ACETATE: 30 mEq POTASSIUM PHOSPHATE: - mmol MAGNESIUM: 15 mEq CALCIUM: - mEq INSULIN: 15 units MULTIPLE VITAMIN: 10 ml TRACE ELEMENTS: 1 ml ml(s) TPN PLAN: No new labs today; labs Mon/Christiana due to stability. No changes to TPN. R: Continue TPN ABOVE. Will monitor electrolytes, glucose, and tolerance to TPN. CHRISTIAN VALLEJO RPH, 11/08/19 1111
[2019-11-08] MEDS ORDERED: IOHEXOL 300 MG/ML 100ML VIAL. IV ONE (11:30)
[2019-11-08] MEDS ORDERED: CONTRAST GIVEN. MC PRN (11:45)
--- NOTE | 2019-11-08 11:52 | PDOC ---
Objective: Objective: D/w nurse - to have CT today, possibly remove some drains. Tmax 101.7. Vital Signs: Vital Signs Date Time Temp Pulse Resp B/P (MAP) Pulse Ox O2 Delivery O2 Flow Rate FiO2 11/08/19 11:00 126 32 121/75 (90) 98 Nasal Cannula 2.0 11/08/19 08:00 99.2 99.2 Labs: Laboratory Tests Test 11/07/19 14:39 11/07/19 18:03 11/07/19 23:59 11/08/19 05:22 Glucose (Fingerstick) 151 mg/dL 128 mg/dL 138 mg/dL 141 mg/dL GRAM STAIN EVALUATION Final Final GRAM NEGATIVE RODS:MANY SQUAMOUS EPI CELL:NONE SEEN PMN (WBCs):MANY RESPIRATORY CULTURE Preliminary Preliminary PE: GEN: chronically ill LUNGS: NC 2L HEART: tachycardic ABD: drains NEURO/PSYCH: A & O A/P: Gallstone pancreatitis s/p necrosectomy Fever -- Await CT. Justicifation of Admission Dx: Justifications for Admission: Justification of Admission Dx: Yes CYNDEE FALCON Nov 08, 2019 11:52
--- NOTE | 2019-11-08 12:00 | PDOC ---
SURGICAL PROGRESS NOTE Subjective Pt off vent, WBC elevated, fevers Vital Signs Vital Signs Date Time Temp Pulse Resp B/P (MAP) Pulse Ox O2 Delivery O2 Flow Rate FiO2 11/08/19 11:00 126 32 121/75 (90) 98 Nasal Cannula 2.0 11/08/19 08:00 99.2 99.2 I&O l Intake and Output 11/08/19 06:59 Intake Total 2541 ml Output Total 2529 ml Balance 12 ml IV Total 2541 ml Output Urine Total 1110 ml Chest Tube Drainage Total 30 ml Drainage Total 1389 ml PATIENT HAS A ROSARIO: Yes General: Alert, Cooperative Abdomen: Soft, No tenderness, Other (drains in place, min output on some) Labs Laboratory Tests Test 11/06/19 12:31 11/06/19 18:22 11/07/19 00:20 11/07/19 05:55 Glucose (Fingerstick) 162 mg/dL (70-99) 102 mg/dL (70-99) 115 mg/dL (70-99) 114 mg/dL (70-99) White Blood Count 25.3 x10^3/uL (4.0-11.0) Red Blood Count 2.87 x10^6/uL (3.50-5.40) Hemoglobin 8.1 g/dL (12.0-15.5) Hematocrit 24.8 % (36.0-47.0) Mean Corpuscular Volume 86 fL (79-100) Mean Corpuscular Hemoglobin 28 pg (25-35) Mean Corpuscular Hemoglobin Concent 33 g/dL (31-37) Red Cell Distribution Width 15.6 % (11.5-14.5) Platelet Count 688 x10^3/uL (140-400) Neutrophils (%) (Auto) 85 % (31-73) Lymphocytes (%) (Auto) 8 % (24-48) Monocytes (%) (Auto) 6 % (0-9) Eosinophils (%) (Auto) 2 % (0-3) Basophils (%) (Auto) 0 % (0-3) Neutrophils # (Auto) 21.4 x10^3/uL (1.8-7.7) Lymphocytes # (Auto) 1.9 x10^3/uL (1.0-4.8) Monocytes # (Auto) 1.5 x10^3/uL (0.0-1.1) Eosinophils # (Auto) 0.4 x10^3/uL (0.0-0.7) Basophils # (Auto) 0.1 x10^3/uL (0.0-0.2) Segmented Neutrophils % 76 % (35-66) Band Neutrophils % 9 % (0-9) Lymphocytes % 6 % (24-48) Monocytes % 7 % (0-10) Eosinophils % 1 % (0-5) Basophils % 1 % (0-3) Nucleated Red Blood Cells 1 Platelet Estimate Increased (ADEQUATE) Large Platelets Occ Anisocytosis Slight Sodium Level 133 mmol/L (136-145) Potassium Level 4.6 mmol/L (3.5-5.1) Chloride Level 100 mmol/L (98-107) Carbon Dioxide Level 31 mmol/L (21-32) Anion Gap 2 (6-14) Blood Urea Nitrogen 13 mg/dL (7-20) Creatinine 0.6 mg/dL (0.6-1.0) Estimated GFR (Cockcroft-Gault) 106.3 Glucose Level 113 mg/dL (70-99) Calcium Level 9.4 mg/dL (8.5-10.1) Test 11/07/19 14:39 11/07/19 18:03 11/07/19 23:59 11/08/19 05:22 Glucose (Fingerstick) 151 mg/dL (70-99) 128 mg/dL (70-99) 138 mg/dL (70-99) 141 mg/dL (70-99) Laboratory Tests Test 11/07/19 14:39 11/07/19 18:03 11/07/19 23:59 11/08/19 05:22 Glucose (Fingerstick) 151 mg/dL (70-99) 128 mg/dL (70-99) 138 mg/dL (70-99) 141 mg/dL (70-99) Problem List Problems Medical Problems: (1) Acute pancreatitis Status: Acute (2) Cholelithiasis Status: Acute Assessment/Plan will check CT and consider d/c some drains. Justicifation of Admission Dx: Justifications for Admission: Justification of Admission Dx: Yes DAVON SIMMS MD Nov 08, 2019 12:00
[2019-11-08] MEDS: fentaNYL PF VIAL 100 MCG/2 ML VIAL IV PRN ×3 (12:18→16:41)
[2019-11-08] MEDS: ACETAMINOPHEN 650 MG SUPP.RECT. PR PRN (13:03)
--- NOTE | 2019-11-08 13:40 | PDOC ---
[employer] PROGRESS NOTE Chief Complaint Chief Complaint Postop day 21 (Exploratory laparotomy, lysis of adhesions, subtotal cholecystectomy with cholangiogram, gastrojejunostomy tube placement, pancreatic necrosectomy) Acute hypoxic Respiratory failure required mechanical ventilation Tracheostomy bilateral pleural effusions/pulm edema s/p Throacentesis on 10/03/2019 Severe Acute gallstone pancreatitis (not a surgical candidate at this time) with necrosis Acute kidney failure now requiring dialysis Gallstones (Calculus of gallbladder with acute cholecystitis without obstruction) HTN Intractable pain Intractable nausea Covid 19 negative. Acute on chronic anemia EEG: No seizure activity Fever - intermittent ? Ileus with vomiting Abd distention - U/S and CT reviewed s/p 0.4 L of opaque, debris-containing ascites was removed 08/23 Acute pancreatitis with persistent necrosis Gallstone pancreatitis with necrosis. -CT A/P 09/23 showed multiple pseudocysts, slight larger on the right. s/p drains x 3, 09/24. + PSAE (MDRO-R Cefepime, Zosyn ALEXANDRA < 64) and yeast, -s/p drain 08/14. C. parapsilosis. s/p drain 08/23 + yeast & high amylase; s/p additional drain on 08/25. Drains removed. Ascites s/p paracentesis 08/02 & 08/23. C. parapsilosis JUANA. off HD. A large fluid collection in the pancreatic bed has slightly decreased in size, d escribed below, the pancreas itself is difficult to visualize, which could be due to necrosis or obscuration of pancreatic parenchyma from the surrounding fluid collection.10/02 - 08/14 status post KAYLIN drain placement + C paropsilosis. s/p additional drains 08/25 Anemia - S/p PRBCs. Cholelithiasis with thickening of the gallbladder wall. Leucocytosis improving JUANA, hyperkalemia, Metabolic acidosis off dialysis hypocalcemia Prediabetes HTN s/p trach Hyperglycemia severe protein-caloric malnutrition Moderate to large left pleural effusion with atelectasis and collapse of most of the left lower lobe, stable History of Present Illness History of Present Illness 11/08/2019 Patient seen and examined in the ICU She is still extremely critically ill Appears extremely weak frail and pale Discussed with RN Chart reviewed Vitals/I&O Vitals/I&O: Vital Signs Date Time Temp Pulse Resp B/P (MAP) Pulse Ox O2 Delivery O2 Flow Rate FiO2 11/08/19 13:03 36 Nasal Cannula 2.0 11/08/19 12:35 100 11/08/19 12:00 100.8 131 128/83 (98) 100.8 I & O 11/07/19 11/07/19 11/08/19 15:00 23:00 07:00 Intake Total 400 ml 1117 ml 1024 ml Output Total 250 ml 1449 ml 830 ml Balance 150 ml -332 ml 194 ml Physical Exam Physical Exam: GENERAL: laying in bed, resting quietly HEENT: Pupils equal, oral cavity dry. NGT out, NECK: Tracheostomy LUNGS: Diminished aeration bases, CT on left HEART: S1, S2, regular, tachy 110s ABDOMEN: Distended, bowel sounds hypoactive, soft, goyal x 2, 3 KAYLIN drains, G-J tube and + wound vac : Lind in place EXTREMITIES: Trace generalized edema, no cyanosis. RADHA hose bilaterally, SKIN: warm touch. No signs of rash. NEURO: Did not awaken LUE-PICC without signs of complications General: Alert, Cooperative Heart: Regular rate (SR/ST), Other (distant heart sounds) Lungs: Crackles, Other (l ct) Abdomen: Soft, No tenderness, Other (drains in place, min output on some) Extremities: Other (Diffuse edema) Skin: No rashes, No significant lesion Labs Labs: Laboratory Tests Test 11/07/19 14:39 11/07/19 18:03 11/07/19 23:59 11/08/19 05:22 Glucose (Fingerstick) 151 mg/dL (70-99) 128 mg/dL (70-99) 138 mg/dL (70-99) 141 mg/dL (70-99) Test 11/08/19 12:21 Glucose (Fingerstick) 143 mg/dL (70-99) Assessment and Plan Assessmemt and Plan Problems Medical Problems: (1) Acute pancreatitis Status: Acute (2) Cholelithiasis Status: Acute Assessment: Postop day 21 (Exploratory laparotomy, lysis of adhesions, subtotal cholecystectomy with cholangiogram, gastrojejunostomy tube placement, pancreatic necrosectomy) Acute hypoxic Respiratory failure required mechanical ventilation Tracheostomy bilateral pleural effusions/pulm edema s/p Throacentesis on 10/03/2019 Severe Acute gallstone pancreatitis (not a surgical candidate at this time) with necrosis Acute kidney failure now requiring dialysis Gallstones (Calculus of gallbladder with acute cholecystitis without obstruction) HTN Intractable pain Intractable nausea Covid 19 negative. Acute on chronic anemia EEG: No seizure activity Fever - intermittent ? Ileus with vomiting Abd distention - U/S and CT reviewed s/p 0.4 L of opaque, debris-containing ascites was removed 08/23 Acute pancreatitis with persistent necrosis Gallstone pancreatitis with necrosis. -CT A/P 09/23 showed multiple pseudocysts, slight larger on the right. s/p drains x , 09/24. + PSAE (MDRO-R Cefepime, Zosyn ALEXANDRA < 64) and yeast, -s/p drain 08/14. C. parapsilosis. s/p drain 08/23 + yeast & high amylase; s/p additional drain on 08/25. Drains removed. Ascites s/p paracentesis 08/02 & 08/23. C. parapsilosis JUANA. off HD. A large fluid collection in the pancreatic bed has slightly decreased in size, described below, the pancreas itself is difficult to visualize, which could be due to necrosis or obscuration of pancreatic parenchyma from the surrounding fluid collection.10/02 - 08/14 status post KAYLIN drain placement + C paropsilosis. s/p additional drains 08/25 Anemia - S/p PRBCs. Cholelithiasis with thickening of the gallbladder wall. Leucocytosis improving JUANA, hyperkalemia, Metabolic acidosis off dialysis hypocalcemia Prediabetes HTN s/p trach Hyperglycemia severe protein-caloric malnutrition Moderate to large left pleural effusion with atelectasis and collapse of most of the left lower lobe, stable Plan: ICU monitoring TPN Aggressive wound care Trend labs follow cultures. meropenam, cipro, micafungin per ID PRN trach shield ID, gen sx, GI, pulm following DVT GI prophylaxis Continue TPN for nutrition support poor prognosis follow labs xanax for anxiety prn Appreciate subspecialist input Long-term prognosis extremely guarded Comment Review of Relevant I have reviewed the following items kolby (where applicable) has been applied. Medications: Current Medications Medications (Trade) Dose Ordered Sig/Yvon Route PRN Reason Start Time Stop Time Status Last Admin Dose Admin Sodium Chloride 120 meq/Sodium Phosphate 10 mmol/ Potassium Chloride 30 meq/ Potassium Acetate 30 meq/Magnesium Sulfate 15 meq/ Multivitamins 10 ml/Chromium/ Copper/Manganese/ Seleni/Zn 1 ml/ Insulin Human Regular 15 unit/ Total Parenteral Nutrition/Amino Acids/Dextrose/ Fat Emulsion Intravenous 1,680 ml @ 70 mls/hr TPN CONT IV 11/07/19 22:00 11/08/19 21:59 11/07/19 22:08 Alteplase, Recombinant (Cathflo For Central Catheter Clearance) 1 mg 1X ONCE INT CAT 11/08/19 09:30 11/08/19 09:31 DC 11/08/19 09:30 Alteplase, Recombinant (Cathflo For Central Catheter Clearance) 1 mg 1X ONCE INT CAT 11/08/19 12:00 11/08/19 12:01 DC 11/08/19 12:17 Justicifation of Admission Dx: Justifications for Admission: Justification of Admission Dx: Yes BEBO KIRBY III DO Nov 08, 2019 13:40
--- NOTE | 2019-11-08 14:17 | PDOC ---
PULMONARY PROGRESS NOTES Subjective Patient was sleeping that woke her up, no respiratory complaint Vitals Vital Signs Date Time Temp Pulse Resp B/P (MAP) Pulse Ox O2 Delivery O2 Flow Rate FiO2 11/08/19 13:03 36 Nasal Cannula 2.0 11/08/19 12:35 100 11/08/19 12:00 100.8 131 128/83 (98) 100.8 ROS: No Nausea, No Chest Pain, No Increase Cough General: Alert HEENT: Other (trach site ok) Lungs: Crackles, Other (l ct) Cardiovascular: S1, S2 Abdomen: Soft, Non-tender, Other (multiple KAYLIN drains ) Neuro Exam: Alert Extremities: Other (+1 BLE edema) Skin: Warm Labs Laboratory Tests Test 11/06/19 18:22 11/07/19 00:20 11/07/19 05:55 11/07/19 14:39 Glucose (Fingerstick) 102 mg/dL (70-99) 115 mg/dL (70-99) 114 mg/dL (70-99) 151 mg/dL (70-99) White Blood Count 25.3 x10^3/uL (4.0-11.0) Red Blood Count 2.87 x10^6/uL (3.50-5.40) Hemoglobin 8.1 g/dL (12.0-15.5) Hematocrit 24.8 % (36.0-47.0) Mean Corpuscular Volume 86 fL (79-100) Mean Corpuscular Hemoglobin 28 pg (25-35) Mean Corpuscular Hemoglobin Concent 33 g/dL (31-37) Red Cell Distribution Width 15.6 % (11.5-14.5) Platelet Count 688 x10^3/uL (140-400) Neutrophils (%) (Auto) 85 % (31-73) Lymphocytes (%) (Auto) 8 % (24-48) Monocytes (%) (Auto) 6 % (0-9) Eosinophils (%) (Auto) 2 % (0-3) Basophils (%) (Auto) 0 % (0-3) Neutrophils # (Auto) 21.4 x10^3/uL (1.8-7.7) Lymphocytes # (Auto) 1.9 x10^3/uL (1.0-4.8) Monocytes # (Auto) 1.5 x10^3/uL (0.0-1.1) Eosinophils # (Auto) 0.4 x10^3/uL (0.0-0.7) Basophils # (Auto) 0.1 x10^3/uL (0.0-0.2) Segmented Neutrophils % 76 % (35-66) Band Neutrophils % 9 % (0-9) Lymphocytes % 6 % (24-48) Monocytes % 7 % (0-10) Eosinophils % 1 % (0-5) Basophils % 1 % (0-3) Nucleated Red Blood Cells 1 Platelet Estimate Increased (ADEQUATE) Large Platelets Occ Anisocytosis Slight Sodium Level 133 mmol/L (136-145) Potassium Level 4.6 mmol/L (3.5-5.1) Chloride Level 100 mmol/L (98-107) Carbon Dioxide Level 31 mmol/L (21-32) Anion Gap 2 (6-14) Blood Urea Nitrogen 13 mg/dL (-20) Creatinine 0.6 mg/dL (0.6-1.0) Estimated GFR (Cockcroft-Gault) 106.3 Glucose Level 113 mg/dL (70-99) Calcium Level 9.4 mg/dL (8.5-10.1) Test 11/07/19 18:03 11/07/19 23:59 11/08/19 05:22 11/08/19 12:21 Glucose (Fingerstick) 128 mg/dL (70-99) 138 mg/dL (70-99) 141 mg/dL (70-99) 143 mg/dL (70-99) Laboratory Tests Test 11/07/19 14:39 11/07/19 18:03 11/07/19 23:59 11/08/19 05:22 Glucose (Fingerstick) 151 mg/dL (70-99) 128 mg/dL (70-99) 138 mg/dL (70-99) 141 mg/dL (70-99) Test 11/08/19 12:21 Glucose (Fingerstick) 143 mg/dL (70-99) Medications Active Scripts Medications Dose Route/Sig Max Daily Dose Days Date Category Bisoprolol Fumarate 5 Mg Tablet 10 Mg PO DAILY 07/04/19 Reported Comments cxr 10/30, reviewed, b ll infilt effusion atelectasis ct reviewed 10/30/19, Decreased left-sided effusion after catheter placement. The right-sided effusion has increased as has atelectasis. There has been exchange or placement of multiple drainage tubes and a gastrojejunostomy tube. Both collections are smaller. No significant new abdominal fluid collection is seen. The jejunal component of the gastrojejunostomy tube appears to be looped in the proximal small bowel. ct abdomen /pelvis 09/23 1. Removal of the percutaneous pigtail drainage catheters since the prior exam. Sequela of pancreatitis with extensive pseudocysts again demonstrated, the right-sided collections are slightly larger since the prior exam, the left-sided collections are stable. See above. 2. Moderate to large left pleural effusion with atelectasis and collapse of most of the left lower lobe, stable. Small right pleural effusion is stable. 3. Gallstone. ct chest 10/02 reviewed GRAM NEG COCCOBACILLI:MANY SQUAMOUS EPI CELL:RARE PMN (WBCs):FEW Unless otherwise specified, Testing Performed by: [address] [address] For Inquires, the Physician may contact the Microbiology department at [phone] RESPIRATORY CULTURE Final Final MANY GRAM NEGATIVE RODS on 10/03/19 at 1107 FINAL ID= [PSEUDOMONAS [email or web address]] MICRO CHARGES PSEUDOMONAS AERUGINOSA ANTIMICROBIAL SUSCEPTIBILITY Final Comment NEG ALEXANDRA 56 PSEUDOMONAS AERUGINOSA ANTIBIOTIC RESULT INTERPRETATION AMIKACIN <=16 S AZTREONAM <=4 S CEFTAZIDIME <=1 S CIPROFLOXACIN <=0.25 S CEFEPIME <=2 S CEFTAZIDIME/AVIBACTAM <=4 S GENTAMICIN <=2 S LEVOFLOXACIN <=0.5 S Impression . IMPRESSION: 1. Acute hypoxemic respiratory failure secondary to ARDS status post trach, developed anemia /, blood drainage from RLQ abdomen drain site, and surrounding firmness / developed septic shock 6/7 from abdomen source, required levo 6/7 s/p 3 new drains 6/7 with brown color drainage, 2. Gallstone pancreatitis, now with ongoing bleeding from prior drain. Anemic. s/p Tx multiple units over several days 3. septic shock/sepsis, recurrent 6/7, source abdomen. new fever ? aspiration pneumonitis/pneumonia 4. Acute kidney injury-, Off HD--renal function decling. suspect JUANA on CKD due to hypotension , improved now 5. Acute gallstone pancreatitis. 6. Hypoalbuminemia. 7. Moderate persistent effusions, s/p left thora 08/29, reaccumulation of left effusion. O2 requirement not changed. 8. Fever- ,hypotension. suspect recurrent sepsis/ likely pancreatic source. Per ID, per surgery-- 9. Chronic anemia-- ongoing / s/p PRBC 10. Covid 19 testing negative 11. Moderate to large ascites-S/P paracentisis 12.S/P paracentisis with 4 liters removed on 08/03/19 13. S/P IR drain placement on 08/26/2019, removal, re inserted 09/24 14. Depression/Anxiety 15., Fever, per ID 16. Status post chest tube placement, not much drainage 10/17 S/P Exploratory laparotomy, lysis of adhesions, subtotal cholecystectomy with cholangiogram, gastrojejunostomy tube placement, pancreatic necrosectomy leukocytosis- improving Plan . Chest tube still draining a bit, I have asked the nurse to utilize Cathflo again, She remains febrile we will send pleural fluid for analysis Monitor H&H Trach shield, as tolerated Up to chair, pt/ot Follow culture Follow surgery input DVT GI prophylaxis ABX per ID f/u BC /resp cultures Continue TPN for nutrition support DVT/GI PPX D/W RN and RT, HARMEET BEE MD Nov 08, 2019 14:17
[2019-11-08] MEDS: IV NORMAL SALINE 1000ML BAG 1,000 ML IV SCH (14:54)
[2019-11-08] MEDS: AVIBACTAM IV SCH ×2 (14:55→22:09)
[2019-11-08] MEDS: CEFTAZIDIME IV SCH ×2 (14:55→22:09)
[2019-11-08] MEDS: NORMAL SALINE IV SCH ×2 (14:55→22:09)
--- NOTE | 2019-11-08 15:25 | RAD ---
EXAM: CT ABDOMEN/PELVIS WITH CONTRAST. HISTORY: Fever. TECHNIQUE: Computed tomography of the abdomen and pelvis was performed after the intravenous administration of iodinated contrast. One or more of the following individualized dose reduction techniques were utilized for this examination: 1. Automated exposure control. 2. Adjustment of the mA and/or kV according to patient size. 3. Use of iterative reconstruction technique. COMPARISON: None. FINDINGS: Lung windows through the visualized portions of the bases reveal a left pleural drain. A right pleural effusion is small to moderate. There is atelectasis or infiltrate throughout both lung bases. Bone windows reveal no suspicious lesions. Bilateral breast implants are noted. A central venous catheter tip is noted in the superior vena cava. The bladder is decompressed by a Lind catheter. Multiple percutaneous drains are noted throughout the abdomen and pelvis. One fills the subcutaneous compartment along an anterior abdominal incision. There is no surrounding fluid collection. Another in the right upper quadrant was under the liver and. There is no surrounding collection. The Another on the left lower quadrant enters the collection in the left paracolic gutter/retroperitoneum and measures 16 cm craniocaudally and 8.4 x 4.3 cm transaxially. This is not clearly changed in size. It crosses the midline pelvis to communicate with another larger similar collection in the right paracolic gutter and retroperitoneum that measures 19 cm craniocaudally by 11.5 x 8.1 cm transaxially. It also contains a percutaneous drain. This collection communicates with a collection that enters the right anterior pararenal space and retroperitoneum along the anterior aspect of the body and tail of the pancreas. A drain has been removed from this collection since the prior study. The collection persists, measuring approximately 3 cm short axis, but 20 cm long. It also communicates with the left paracolic gutter collection superiorly. A small amount of free pelvic fluid does not appear loculated. An air-fluid level in the rectum is consistent with diarrhea. There is at least mild diffuse colonic wall thickening. There is no small bowel obstruction. A gastrojejunostomy catheter has its tip in the left upper quadrant. A hepatic cyst is likely benign and measures 1.3 cm. The spleen, gallbladder, adrenal glands and kidneys are unremarkable. The pancreatic parenchyma is small, consistent with necrosis/atrophy. The pancreatic duct is not dilated. IMPRESSION: 1. Colonic wall thickening with findings suggesting diarrhea. Correlate for colitis. 2. Extensive retroperitoneal fluid collections persist. Percutaneous drains remain within the collections in both paracolic gutters. These communicate with additional pelvic and peripancreatic collections. 3. Small to moderate right pleural effusion. No left pleural fluid is detectable in this [id number] with a drain in place. Bibasilar atelectasis or infiltrate. Electronically signed by: Enzo Perera MD (11/08/2019 3:22 PM) [id number]
[2019-11-08] MEDS ORDERED: AMINO ACID IV SCH ×11 (22:00)
[2019-11-08] MEDS ORDERED: [UNRECOGNIZED DRUG - OTHER] IV SCH ×11 (22:00)
[2019-11-08] MEDS ORDERED: DEXTROSE 70% IV SCH ×11 (22:00)
[2019-11-08] MEDS ORDERED: TOTAL PARENTERAL NUTRITION IV SCH ×11 (22:00)
[2019-11-09] VITALS (9 sets, daily range): BP systolic 109–164; BP diastolic 66–93
[2019-11-09] MEDS: ONDANSETRON PF 4 MG/2 ML VIAL. IV PRN ×2 (01:40→09:03)
[2019-11-09] MEDS: ALPRAZolam 0.5 MG TABLET PO PRN ×3 (01:58→18:35)
[2019-11-09] MEDS: IPRATRPIUM/ALBUTEROL 0.5/2.5MG 3 ML NEBU. NEB SCH ×5 (03:44→20:32)
[2019-11-09] MEDS: CEFTAZIDIME IV SCH (05:32)
[2019-11-09] MEDS: AVIBACTAM IV SCH (05:32)
[2019-11-09] MEDS: INSULIN LISPRO 300 UNITS/3 ML VIAL. SQ SCH ×4 (05:32→17:44)
[2019-11-09] MEDS: NORMAL SALINE IV SCH (05:32)
[2019-11-09 05:50] LABS: BASO % 0 % (0-3); EOS # 0.6 x10^3/uL (0.0-0.7); EOS % 3 % (0-3); HEMATOCRIT 21.2 % (36.0-47.0); LYMPH # 1.3 x10^3/uL (1.0-4.8); LYMPH % 8 % (24-48); MEAN CORPUSCULAR HEMOGLOBIN 28 pg (25-35); MEAN CORPUSCULAR HGB CONC 33 g/dL (31-37); MEAN CORPUSCULAR VOLUME 86 fL (79-100); MONO # 0.8 x10^3/uL (0.0-1.1); MONO % 5 % (0-9); NEUT % 84 % (31-73); PLATELET COUNT 583 x10^3/uL (140-400); RED BLOOD COUNT 2.48 x10^6/uL (3.50-5.40); RED CELL DISTRIBUTION WIDTH 15.9 % (11.5-14.5); WHITE BLOOD COUNT 16.7 x10^3/uL (4.0-11.0)
[2019-11-09 06:00] LABS: HEMOGLOBIN 6.9 g/dL (12.0-15.5)
--- NOTE | 2019-11-09 07:48 | PDOC ---
Infectious Disease Note Subjective: Subjective Pt resting quietly, arousable No fevers last 24 hours TPN Vital Signs: Vital Signs Vital Signs Date Time Temp Pulse Resp B/P (MAP) Pulse Ox O2 Delivery O2 Flow Rate FiO2 11/09/19 04:00 98.1 123 29 109/66 (80) 94 Nasal Cannula 1.0 98.1 Physical Exam: PHYSICAL EXAM GENERAL: laying in bed, resting quietly HEENT: Pupils equal, oral cavity dry. NGT out, NECK: Tracheostomy LUNGS: Diminished aeration bases, CT on left HEART: S1, S2, regular, tachy 110s ABDOMEN: Distended, bowel sounds hypoactive, soft, goyal x 2, 3 KAYLIN drains, G-J tube and + wound vac : Lind in place EXTREMITIES: Trace generalized edema, no cyanosis. RADHA hose bilaterally, SKIN: warm touch. No signs of rash. NEURO: Arousable LUE-PICC without signs of complications Medications: Inpatient Meds: Current Medications Medications (Trade) Dose Ordered Sig/Yvon Start Time Stop Time Status Last Admin Dose Admin Acetaminophen (Tylenol Supp) 650 mg PRN Q6HRS PRN 07/12/19 10:30 11/08/19 13:03 650 MG Acetaminophen (Tylenol) 650 mg PRN Q6HRS PRN 07/09/19 03:36 08/31/19 10:25 DC 08/04/19 19:56 650 MG Acetylcysteine (Mucomyst 20% Resp Treatment) 600 mg RTBID 10/15/19 12:00 11/08/19 19:41 600 MG Albumin Human 500 ml @ 125 mls/hr PRN Q1HR PRN 10/18/19 15:45 Albuterol Sulfate (Ventolin Neb Soln) 2.5 mg 1X ONCE 07/05/19 22:30 07/05/19 22:31 DC 07/06/19 00:56 2.5 MG Albuterol/ Ipratropium (Duoneb) 3 ml Q4HRS 10/01/19 08:00 11/09/19 03:44 3 ML Alprazolam (Xanax) 0.5 mg PRN TID PRN 11/04/19 08:00 11/09/19 01:58 0.5 MG Alteplase, Recombinant (Cathflo For Central Catheter Clearance) 1 mg 1X ONCE 11/08/19 12:00 11/08/19 12:01 DC 11/08/19 12:17 1 MG Alteplase, Recombinant 4 mg/ Sodium Chloride 20 ml @ 20 mls/hr 1X ONCE 10/05/19 10:00 10/05/19 10:59 DC 10/05/19 10:09 20 MLS/HR Amino Acids/ Glycerin/ Electrolytes 1,000 ml @ 75 mls/hr [id number] 08/08/19 21:15 UNV Artificial Tears (Artificial Tears) 1 drop PRN Q15MIN PRN 08/17/19 05:30 10/11/19 21:17 1 DROP Atenolol (Tenormin) 100 mg DAILY 07/05/19 09:00 07/04/19 20:08 DC Atropine Sulfate (ATROPINE 0.5mg SYRINGE) 0.5 mg PRN Q5MIN PRN 07/21/19 08:15 Barium Sulfate (Varibar Thin Liquid Apple) 148 gm 1X ONCE 09/13/19 11:45 09/13/19 11:49 DC Benzocaine (Hurricaine One) 1 spray 1X ONCE 07/08/19 14:30 07/08/19 14:31 DC 07/08/19 16:38 1 SPRAY Bisacodyl (Dulcolax Supp) 10 mg STK-MED ONCE 08/15/19 10:59 08/15/19 10:59 DC Bumetanide (Bumex) 2 mg DAILY 08/26/19 10:00 09/05/19 17:15 DC 09/05/19 08:07 2 MG Bupivacaine HCl/ Epinephrine Bitart (Sensorcain-Epi 0.5%-1:412562 Mpf) 30 ml STK-MED ONCE 10/18/19 08:34 10/18/19 08:35 DC Calcium Carbonate/ Glycine (Tums) 500 mg PRN AFTMEALHC PRN 07/06/19 17:45 08/31/19 10:25 DC Calcium Chloride 1000 mg/Sodium Chloride 110 ml @ 220 mls/hr 1X ONCE 07/05/19 22:30 07/05/19 22:59 DC 07/05/19 22:11 220 MLS/HR Calcium Chloride 3000 mg/Sodium Chloride 1,030 ml @ 50 mls/hr [id number] 07/07/19 08:00 07/09/19 15:23 DC 07/09/19 02:17 50 MLS/HR Calcium Gluconate (Calcium Gluconate) 2,000 mg 1X ONCE 07/07/19 02:15 07/07/19 02:16 DC 07/07/19 02:19 2,000 MG Calcium Gluconate 1000 mg/Sodium Chloride 110 ml @ 220 mls/hr 1X ONCE 07/06/19 03:30 07/06/19 03:59 DC 07/06/19 03:21 220 MLS/HR Calcium Gluconate 2000 mg/Sodium Chloride 120 ml @ 220 mls/hr 1X ONCE 07/06/19 07:30 07/06/19 08:02 DC 07/06/19 09:05 220 MLS/HR Cefepime HCl (Maxipime) 2 gm Q12HR 07/13/19 09:00 07/27/19 09:58 DC 07/26/19 20:56 2 GM Ceftazidime/ Avibactam 2.5 gm/ Sodium Chloride 100 ml @ 50 mls/hr Q8HRS 11/08/19 14:00 11/09/19 05:32 50 MLS/HR Cellulose (Surgicel Fibrillar 1x2) 1 each STK-MED ONCE 07/25/19 11:00 07/25/19 11:01 DC Cellulose (Surgicel Hemostat 2x14) 1 each STK-MED ONCE 08/15/19 10:58 08/15/19 10:59 DC Cellulose (Surgicel Hemostat 4x8) 1 each STK-MED ONCE 08/15/19 10:58 08/15/19 10:59 DC Chlorhexidine Gluconate (Peridex) 15 ml BID 10/01/19 09:00 10/01/19 07:58 DC Ciprofloxacin/ Dextrose 200 ml @ 200 mls/hr Q12HR 10/30/19 10:00 11/08/19 08:20 DC 11/07/19 21:02 200 MLS/HR Cyclobenzaprine HCl (Flexeril) 10 mg PRN Q6HRS PRN 08/18/19 10:45 10/28/19 19:12 10 MG Daptomycin 410 mg/ Sodium Chloride 50 ml @ 100 mls/hr Q24H 09/25/19 14:00 09/28/19 08:30 DC 09/27/19 13:33 100 MLS/HR Daptomycin 430 mg/ Sodium Chloride 50 ml @ 100 mls/hr Q24H 08/13/19 13:00 08/18/19 20:58 DC 08/18/19 13:00 100 MLS/HR Daptomycin 450 mg/ Sodium Chloride 50 ml @ 100 mls/hr Q24H 09/04/19 09:00 09/08/19 08:30 DC 09/07/19 09:25 100 MLS/HR Daptomycin 485 mg/ Sodium Chloride 50 ml @ 100 mls/hr Q24H 08/22/19 11:00 08/30/19 07:44 DC 08/29/19 13:10 100 MLS/HR Daptomycin 500 mg/ Sodium Chloride 50 ml @ 100 mls/hr Q24H 11/02/19 09:00 11/08/19 09:31 100 MLS/HR Desflurane (Suprane) 90 ml STK-MED ONCE 10/18/19 10:18 10/18/19 10:19 DC Dexamethasone Sodium Phosphate (Decadron) 4 mg STK-MED ONCE 08/15/19 10:56 08/15/19 10:57 DC Dexmedetomidine HCl 400 mcg/ Sodium Chloride 100 ml @ 0 mls/hr CONT PRN 07/21/19 08:15 09/17/19 18:31 DC 09/17/19 12:57 8 MLS/HR Dextrose (Dextrose 50%-Water Syringe) 12.5 gm PRN Q15MIN PRN 07/04/19 09:30 Digoxin (Lanoxin) 125 mcg 1X ONCE 07/07/19 18:00 07/07/19 18:01 DC 07/07/19 17:10 125 MCG Diphenhydramine HCl (Benadryl) 25 mg 1X ONCE 11/03/19 19:00 11/03/19 19:01 DC 11/03/19 18:56 25 MG Duloxetine HCl (Cymbalta) 30 mg DAILY 08/28/19 14:00 08/31/19 10:25 DC 08/29/19 09:48 30 MG Enoxaparin Sodium (Lovenox 100mg Syringe) 100 mg Q12HR 08/09/19 21:00 UNV Enoxaparin Sodium (Lovenox 40mg Syringe) 40 mg Q24H 10/19/19 08:00 11/08/19 09:30 40 MG Ephedrine Sulfate (ePHEDrine PF IN SALINE SYRINGE) 50 mg STK-MED ONCE 10/18/19 14:45 10/18/19 14:45 DC Etomidate (Amidate) 8 mg 1X ONCE 07/11/19 08:30 07/11/19 08:31 DC 07/11/19 08:33 8 MG Fentanyl (Duragesic 12mcg/ Hr Patch) 1 patch Q3DAYS 10/28/19 09:00 11/06/19 09:00 1 PATCH Fentanyl (Duragesic 50mcg/ Hr Patch) 1 patch Q72H 09/22/19 21:00 10/01/19 12:00 DC 09/22/19 21:22 1 PATCH Fentanyl Citrate 30 ml @ 0 mls/hr CONT PRN 10/27/19 17:30 Fentanyl Citrate (Fentanyl 2ml Vial) 100 mcg STK-MED ONCE 10/18/19 07:44 10/18/19 07:44 DC Fentanyl Citrate (Fentanyl 5ml Vial) 250 mcg 1X ONCE 08/26/19 09:15 08/26/19 09:16 DC 08/26/19 09:30 50 MCG Flumazenil (Romazicon) 0.5 mg STK-MED ONCE 09/25/19 14:48 09/25/19 14:48 DC Fluoxetine HCl (PROzac) 20 mg QHS 09/22/19 21:00 11/08/19 21:04 20 MG Furosemide (Lasix) 40 mg 1X ONCE 10/12/19 15:30 10/12/19 15:33 DC 10/12/19 16:27 40 MG Haloperidol Lactate (Haldol Inj) 3 mg 1X ONCE 08/22/19 14:30 08/22/19 14:31 DC 08/22/19 14:37 3 MG Heparin Sodium (Porcine) (Hep Lock Adult) 500 unit STK-MED ONCE 07/26/19 09:29 07/26/19 09:30 DC Heparin Sodium (Porcine) (Heparin Sodium) 5,000 unit Q12HR 08/15/19 21:00 08/25/19 09:59 DC 08/24/19 20:57 5,000 UNIT Heparin Sodium (Porcine) 1000 unit/Sodium Chloride 1,001 ml @ 1,001 mls/hr 1X ONCE 10/18/19 06:00 10/18/19 06:59 DC Hydromorphone HCl (Dilaudid Standard [employer]) 12 mg STK-MED ONCE 08/19/19 15:50 08/30/19 11:24 DC Hydromorphone HCl (Dilaudid) 1 mg PRN Q4HRS PRN 08/22/19 19:00 09/05/19 17:10 DC 09/05/19 06:25 1 MG Info (CONTRAST GIVEN -- Rx MONITORING) 1 each PRN DAILY PRN 11/08/19 11:45 11/10/19 11:44 Info (Icu Electrolyte Protocol) 1 ea CONT PRN PRN 07/17/19 13:15 Info (PHARMACY MONITORING -- do not chart) 1 each PRN DAILY PRN 08/12/19 15:45 09/13/19 14:14 DC Info (Tpn Per Pharmacy) 1 each PRN DAILY PRN 07/06/19 12:30 UNV Insulin Human Lispro (HumaLOG) 0-9 UNITS Q6HRS 07/04/19 09:30 11/07/19 14:42 4 UNITS Insulin Human Regular (HumuLIN R VIAL) 5 unit 1X ONCE 07/05/19 22:30 07/05/19 22:31 DC 07/05/19 22:14 5 UNIT Iohexol (Omnipaque 240 Mg/ml) 30 ml 1X ONCE 07/18/19 11:30 07/18/19 11:33 DC 07/18/19 11:30 30 ML Iohexol (Omnipaque 300 Mg/ml) 75 ml 1X ONCE 11/08/19 11:30 11/08/19 11:31 DC 11/08/19 11:30 75 ML Iohexol (Omnipaque 350 Mg/ml) 90 ml 1X ONCE 07/04/19 03:30 07/04/19 03:31 DC 07/04/19 03:25 90 ML Ketorolac Tromethamine (Toradol 30mg Vial) 30 mg 1X ONCE 07/04/19 03:00 07/04/19 03:01 DC 07/04/19 02:54 30 MG Lidocaine HCl (Buffered Lidocaine 1%) 3 ml 1X ONCE 10/03/19 13:00 10/03/19 13:01 DC 10/03/19 13:11 12 ML Lidocaine HCl (Glydo (Lidocaine) Jelly) 1 ramu 1X ONCE 07/08/19 14:30 07/08/19 14:31 DC 07/08/19 16:38 1 RAMU Lidocaine HCl (Lidocaine 1% 20ml Vial) 20 ml 1X ONCE 09/25/19 15:00 09/25/19 15:01 DC 09/25/19 15:30 20 ML Lidocaine HCl (Lidocaine Pf 2% Vial) 5 ml STK-MED ONCE 10/18/19 07:44 10/18/19 07:44 DC Lidocaine HCl (Xylocaine-Mpf 1% 2ml Vial) 2 ml PRN 1X PRN 08/15/19 07:00 08/16/19 06:59 DC Linezolid/Dextrose 300 ml @ 300 mls/hr Q12HR 09/04/19 09:00 09/07/19 08:11 DC 09/06/19 21:08 300 MLS/HR Lorazepam (Ativan Inj) 0.25 mg PRN Q4HRS PRN 09/21/19 07:30 11/07/19 03:28 0.25 MG Magnesium Sulfate 50 ml @ 25 mls/hr 1X ONCE 10/18/19 16:30 10/18/19 18:29 DC 10/18/19 17:02 25 MLS/HR Meropenem 1 gm/ Sodium Chloride 100 ml @ 200 mls/hr Q12HR 09/25/19 21:00 10/13/19 08:56 DC 10/13/19 08:27 200 MLS/HR Meropenem 500 mg/ Sodium Chloride 50 ml @ 100 mls/hr Q6HRS 10/16/19 18:00 11/08/19 08:23 DC 11/08/19 06:15 100 MLS/HR Methylprednisolone Sodium Succinate (SOLU-Medrol 125MG VIAL) 125 mg 1X ONCE 10/01/19 06:15 10/01/19 06:16 DC 10/01/19 06:26 125 MG Metoclopramide HCl (Reglan Vial) 10 mg PRN Q3HRS PRN 08/27/19 16:45 09/01/19 04:25 10 MG Metoprolol Tartrate (Lopressor Vial) 5 mg PRN Q6HRS PRN 09/28/19 09:00 11/05/19 17:50 5 MG Metronidazole 100 ml @ 100 mls/hr Q8HRS 08/02/19 10:00 08/09/19 08:10 DC 08/09/19 06:04 100 MLS/HR Micafungin Sodium 100 mg/Dextrose 100 ml @ 100 mls/hr Q24H 10/18/19 08:30 11/08/19 09:31 100 MLS/HR Midazolam HCl (Versed) 2 mg 1X ONCE 09/25/19 15:00 09/25/19 15:01 DC 09/25/19 15:28 1 MG Midazolam HCl 100 mg/Sodium Chloride 100 ml @ 1 mls/hr CONT PRN 10/18/19 14:45 10/21/19 18:48 10 MLS/HR Midazolam HCl 50 mg/Sodium Chloride 50 ml @ 0 mls/hr CONT PRN 07/11/19 08:15 07/16/19 15:59 DC 07/14/19 22:39 7 MLS/HR Morphine Sulfate (Morphine Sulfate) 1 mg PRN Q1HR PRN 10/18/19 14:45 Multi-Ingred Cream/Lotion/Oil/ Oint (Artificial Tears Eye Ointment) 1 ramu PRN Q1HR PRN 07/13/19 17:30 09/21/19 14:39 DC 08/01/19 08:19 1 RAMU Naloxone HCl (Narcan) 0.4 mg PRN Q2MIN PRN 10/18/19 14:45 Norepinephrine Bitartrate 8 mg/ Dextrose 258 ml @ 13.332 mls/ hr CONT PRN 09/25/19 06:30 10/20/19 09:09 1.6 MLS/HR Ondansetron HCl (Zofran) 4 mg STK-MED ONCE 10/18/19 13:33 10/18/19 13:33 DC Pantoprazole Sodium (PROTONIX VIAL for IV PUSH) 40 mg DAILYAC 07/04/19 11:30 11/08/19 09:30 40 MG Phenylephrine HCl (Brayden-Synephrine Inj) 10 mg STK-MED ONCE 10/18/19 13:33 10/18/19 13:33 DC Phenylephrine HCl (PHENYLEPHRINE in 0.9% NACL PF) 1 mg STK-MED ONCE 10/18/19 14:44 10/18/19 14:45 DC Piperacillin Sod/ Tazobactam Sod 3.375 gm/Sodium Chloride 50 ml @ 100 mls/hr Q6HRS 09/14/19 12:00 09/22/19 07:26 DC 09/22/19 06:10 100 MLS/HR Piperacillin Sod/ Tazobactam Sod 4.5 gm/Sodium Chloride 100 ml @ 200 mls/hr 1X ONCE 07/04/19 06:00 07/04/19 06:29 DC 07/04/19 05:44 200 MLS/HR Potassium Chloride 110 meq/ Magnesium Sulfate 20 meq/ Multivitamins 10 ml/Chromium/ Copper/Manganese/ Seleni/Zn 1 ml/ Insulin Human Regular 15 unit/ Total Parenteral Nutrition/Amino Acids/Dextrose/ Fat Emulsion Intravenous 1,800 ml @ 75 mls/hr TPN CONT 09/11/19 22:00 09/12/19 21:59 DC 09/11/19 22:48 75 MLS/HR Potassium Chloride 15 meq/ Bicarbonate Dialysis Soln w/ out KCl 5,007.5 ml @ 1,000 mls/ hr Q5H1M 07/17/19 20:00 07/21/19 13:08 DC 07/20/19 18:14 1,000 MLS/HR Potassium Chloride 20 meq/ Bicarbonate Dialysis Soln w/ out KCl 5,010 ml @ 1,000 mls/hr Q5H1M 07/13/19 16:00 07/17/19 19:59 DC 07/17/19 14:54 1,000 MLS/HR Potassium Chloride 40 meq/ Potassium Acetate 60 meq/Magnesium Sulfate 10 meq/ Multivitamins 10 ml/Chromium/ Copper/Manganese/ Seleni/Zn 1 ml/ Insulin Human Regular 20 unit/ Total Parenteral Nutrition/Amino Acids/Dextrose/ Fat Emulsion Intravenous 1,800 ml @ 75 mls/hr TPN CONT 09/22/19 22:00 09/23/19 21:59 DC 09/23/19 00:03 75 MLS/HR Potassium Chloride 70 meq/ Magnesium Sulfate 20 meq/ Multivitamins 10 ml/Chromium/ Copper/Manganese/ Seleni/Zn 1 ml/ Insulin Human Regular 15 unit/ Total Parenteral Nutrition/Amino Acids/Dextrose/ Fat Emulsion Intravenous 1,800 ml @ 75 mls/hr TPN CONT 09/16/19 22:00 09/17/19 21:59 DC 09/16/19 23:13 75 MLS/HR Potassium Chloride 75 meq/ Magnesium Sulfate 15 meq/ Multivitamins 10 ml/Chromium/ Copper/Manganese/ Seleni/Zn 0.5 ml/ Insulin Human Regular 15 unit/ Total Parenteral Nutrition/Amino Acids/Dextrose/ Fat Emulsion Intravenous 1,920 ml @ 80 mls/hr TPN CONT 08/27/19 22:00 08/28/19 21:59 DC 08/27/19 22:41 80 MLS/HR Potassium Chloride 75 meq/ Magnesium Sulfate 15 meq/Calcium Gluconate 8 meq/ Multivitamins 10 ml/Chromium/ Copper/Manganese/ Seleni/Zn 0.5 ml/ Insulin Human Regular 15 unit/ Total Parenteral Nutrition/Amino Acids/Dextrose/ Fat Emulsion Intravenous 1,920 ml @ 80 mls/hr TPN CONT 08/25/19 22:00 08/26/19 21:59 DC 08/25/19 22:28 80 MLS/HR Potassium Chloride 75 meq/ Magnesium Sulfate 15 meq/Calcium Gluconate 8 meq/ Multivitamins 10 ml/Chromium/ Copper/Manganese/ Seleni/Zn 0.5 ml/ Insulin Human Regular 20 unit/ Total Parenteral Nutrition/Amino Acids/Dextrose/ Fat Emulsion Intravenous 1,920 ml @ 80 mls/hr TPN CONT 08/24/19 22:00 08/25/19 21:59 DC 08/24/19 22:00 80 MLS/HR Potassium Chloride 75 meq/ Magnesium Sulfate 15 meq/Calcium Gluconate 8 meq/ Multivitamins 10 ml/Chromium/ Copper/Manganese/ Seleni/Zn 0.5 ml/ Insulin Human Regular 25 unit/ Total Parenteral Nutrition/Amino Acids/Dextrose/ Fat Emulsion Intravenous 1,920 ml @ 80 mls/hr TPN CONT 08/22/19 22:00 08/23/19 21:59 DC 08/22/19 23:08 80 MLS/HR Potassium Chloride 75 meq/ Magnesium Sulfate 20 meq/Calcium Gluconate 10 meq/ Multivitamins 10 ml/Chromium/ Copper/Manganese/ Seleni/Zn 0.5 ml/ Insulin Human Regular 25 unit/ Total Parenteral Nutrition/Amino Acids/Dextrose/ Fat Emulsion Intravenous 1,920 ml @ 80 mls/hr TPN CONT 08/21/19 22:00 08/22/19 21:59 DC 08/21/19 22:04 80 MLS/HR Potassium Chloride 75 meq/ Magnesium Sulfate 20 meq/Calcium Gluconate 10 meq/ Multivitamins 10 ml/Chromium/ Copper/Manganese/ Seleni/Zn 0.5 ml/ Insulin Human Regular 30 unit/ Total Parenteral Nutrition/Amino Acids/Dextrose/ Fat Emulsion Intravenous 1,920 ml @ 80 mls/hr TPN CONT 08/20/19 22:00 08/21/19 22:00 DC 08/20/19 21:51 80 MLS/HR Potassium Chloride 80 meq/ Magnesium Sulfate 20 meq/ Multivitamins 10 ml/Chromium/ Copper/Manganese/ Seleni/Zn 0.5 ml/ Insulin Human Regular 15 unit/ Total Parenteral Nutrition/Amino Acids/Dextrose/ Fat Emulsion Intravenous 1,920 ml @ 80 mls/hr TPN CONT 08/30/19 22:00 08/31/19 21:59 DC 08/30/19 21:40 80 MLS/HR Potassium Chloride 80 meq/ Magnesium Sulfate 20 meq/ Multivitamins 10 ml/Chromium/ Copper/Manganese/ Seleni/Zn 1 ml/ Insulin Human Regular 15 unit/ Total Parenteral Nutrition/Amino Acids/Dextrose/ Fat Emulsion Intravenous 1,800 ml @ 75 mls/hr TPN CONT 09/18/19 22:00 09/19/19 21:59 DC 09/18/19 21:54 75 MLS/HR Potassium Chloride 90 meq/ Magnesium Sulfate 20 meq/ Multivitamins 10 ml/Chromium/ Copper/Manganese/ Seleni/Zn 1 ml/ Insulin Human Regular 15 unit/ Total Parenteral Nutrition/Amino Acids/Dextrose/ Fat Emulsion Intravenous 1,800 ml @ 75 mls/hr TPN CONT 09/07/19 22:00 09/08/19 21:59 DC 09/07/19 22:28 75 MLS/HR Potassium Chloride 90 meq/ Magnesium Sulfate 20 meq/ Multivitamins 10 ml/Chromium/ Copper/Manganese/ Seleni/Zn 1 ml/ Insulin Human Regular 20 unit/ Total Parenteral Nutrition/Amino Acids/Dextrose/ Fat Emulsion Intravenous 1,800 ml @ 75 mls/hr TPN CONT 09/21/19 22:00 09/22/19 21:59 DC 09/21/19 23:13 75 MLS/HR Potassium Chloride/Water 100 ml @ 100 mls/hr Q1H 10/05/19 08:00 10/05/19 09:59 DC 10/05/19 09:12 100 MLS/HR Potassium Phosphate 20 mmol/ Sodium Chloride 106.6667 ml @ 51.667 m... 1X ONCE 07/13/19 13:00 07/13/19 15:03 DC 07/13/19 12:51 51.667 MLS/HR Potassium Acetate 30 meq/Magnesium Sulfate 14 meq/ Multivitamins 10 ml/Chromium/ Copper/Manganese/ Seleni/Zn 1 ml/ Insulin Human Regular 15 unit/ Sodium Chloride 20 meq/Potassium Chloride 30 meq/ Total Parenteral Nutrition/Amino Acids/Dextrose/ Fat Emulsion Intravenous 1,920 ml @ 80 mls/hr TPN CONT 10/11/19 22:00 10/12/19 21:59 DC 10/11/19 21:46 80 MLS/HR Potassium Acetate 30 meq/Magnesium Sulfate 20 meq/ Calcium Gluconate 10 meq/ Multivitamins 10 ml/Chromium/ Copper/Manganese/ Seleni/Zn 0.5 ml/ Insulin Human Regular 30 unit/ Potassium Chloride 30 meq/ Total Parenteral Nutrition/Amino Acids/Dextrose/ Fat Emulsion Intravenous 1,920 ml @ 80 mls/hr TPN CONT 08/19/19 22:00 08/20/19 21:59 DC 08/19/19 22:34 80 MLS/HR Potassium Acetate 40 meq/Magnesium Sulfate 10 meq/ Multivitamins 10 ml/Chromium/ Copper/Manganese/ Seleni/Zn 1 ml/ Insulin Human Regular 20 unit/ Total Parenteral Nutrition/Amino Acids/Dextrose/ Fat Emulsion Intravenous 1,920 ml @ 80 mls/hr TPN CONT 10/04/19 22:00 10/05/19 21:59 DC 10/04/19 21:32 80 MLS/HR Potassium Acetate 40 meq/Magnesium Sulfate 5 meq/ Multivitamins 10 ml/Chromium/ Copper/Manganese/ Seleni/Zn 1 ml/ Insulin Human Regular 30 unit/ Total Parenteral Nutrition/Amino Acids/Dextrose/ Fat Emulsion Intravenous 1,920 ml @ 80 mls/hr TPN CONT 10/03/19 22:00 10/04/19 19:34 DC 10/03/19 21:54 80 MLS/HR Potassium Acetate 55 meq/Magnesium Sulfate 20 meq/ Calcium Gluconate 10 meq/ Multivitamins 10 ml/Chromium/ Copper/Manganese/ Seleni/Zn 0.5 ml/ Insulin Human Regular 30 unit/ Total Parenteral Nutrition/Amino Acids/Dextrose/ Fat Emulsion Intravenous 1,920 ml @ 80 mls/hr TPN CONT 08/18/19 22:00 08/19/19 21:59 DC 08/19/19 01:00 80 MLS/HR Potassium Acetate 55 meq/Magnesium Sulfate 20 meq/ Calcium Gluconate 10 meq/ Multivitamins 10 ml/Chromium/ Copper/Manganese/ Seleni/Zn 0.5 ml/ Insulin Human Regular 35 unit/ Total Parenteral Nutrition/Amino Acids/Dextrose/ Fat Emulsion Intravenous 1,920 ml @ 80 mls/hr TPN CONT 08/16/19 22:00 08/17/19 21:59 DC 08/16/19 22:02 80 MLS/HR Potassium Acetate 60 meq/Magnesium Sulfate 10 meq/ Multivitamins 10 ml/Chromium/ Copper/Manganese/ Seleni/Zn 1 ml/ Insulin Human Regular 20 unit/ Total Parenteral Nutrition/Amino Acids/Dextrose/ Fat Emulsion Intravenous 1,920 ml @ 80 mls/hr TPN CONT 10/05/19 22:00 10/06/19 21:59 DC 10/05/19 21:55 80 MLS/HR Potassium Acetate 60 meq/Magnesium Sulfate 14 meq/ Multivitamins 10 ml/Chromium/ Copper/Manganese/ Seleni/Zn 1 ml/ Insulin Human Regular 15 unit/ Sodium Chloride 20 meq/Total Parenteral Nutrition/Amino Acids/Dextrose/ Fat Emulsion Intravenous 1,920 ml @ 80 mls/hr TPN CONT 10/10/19 22:00 10/11/19 21:59 DC 10/10/19 21:54 80 MLS/HR Potassium Acetate 60 meq/Magnesium Sulfate 14 meq/ Multivitamins 10 ml/Chromium/ Copper/Manganese/ Seleni/Zn 1 ml/ Insulin Human Regular 15 unit/ Total Parenteral Nutrition/Amino Acids/Dextrose/ Fat Emulsion Intravenous 1,920 ml @ 80 mls/hr TPN CONT 10/09/19 22:00 10/10/19 21:59 DC 10/09/19 22:22 80 MLS/HR Potassium Acetate 60 meq/Magnesium Sulfate 14 meq/ Multivitamins 10 ml/Chromium/ Copper/Manganese/ Seleni/Zn 1 ml/ Insulin Human Regular 20 unit/ Total Parenteral Nutrition/Amino Acids/Dextrose/ Fat Emulsion Intravenous 1,920 ml @ 80 mls/hr TPN CONT 10/06/19 22:00 10/07/19 21:59 DC 10/06/19 22:26 80 MLS/HR Potassium Acetate 60 meq/Magnesium Sulfate 5 meq/ Multivitamins 10 ml/Chromium/ Copper/Manganese/ Seleni/Zn 1 ml/ Insulin Human Regular 30 unit/ Total Parenteral Nutrition/Amino Acids/Dextrose/ Fat Emulsion Intravenous 1,920 ml @ 80 mls/hr TPN CONT 09/24/19 22:00 09/25/19 21:59 DC 09/24/19 21:54 80 MLS/HR Potassium Acetate 65 meq/Magnesium Sulfate 20 meq/ Calcium Gluconate 10 meq/ Multivitamins 10 ml/Chromium/ Copper/Manganese/ Seleni/Zn 0.5 ml/ Insulin Human Regular 30 unit/ Total Parenteral Nutrition/Amino Acids/Dextrose/ Fat Emulsion Intravenous 1,920 ml @ 80 mls/hr TPN CONT 08/17/19 22:00 08/18/19 21:59 DC 08/17/19 22:22 80 MLS/HR Potassium Acetate 80 meq/Magnesium Sulfate 5 meq/ Multivitamins 10 ml/Chromium/ Copper/Manganese/ Seleni/Zn 1 ml/ Insulin Human Regular 20 unit/ Total Parenteral Nutrition/Amino Acids/Dextrose/ Fat Emulsion Intravenous 1,920 ml @ 80 mls/hr TPN CONT 09/23/19 22:00 09/24/19 21:59 DC 09/23/19 21:59 80 MLS/HR Prochlorperazine Edisylate (Compazine) 5 mg PACU PRN PRN 08/15/19 07:00 08/16/19 06:59 DC Propofol (Diprivan) 200 mg STK-MED ONCE 10/18/19 07:44 10/18/19 07:44 DC Ringer's Solution 1,000 ml @ 30 mls/hr Q24H 08/15/19 07:00 08/15/19 18:59 DC Rocuronium [place] (Zemuron) 100 mg STK-MED ONCE 10/18/19 07:44 10/18/19 07:44 DC Saliva Substitute (Biotene Moisturizing Mouth) 2 spray PRN Q15MIN PRN 09/08/19 11:00 Sevoflurane (Ultane) 60 ml STK-MED ONCE 08/15/19 12:26 08/15/19 12:27 DC Sodium Bicarbonate 150 meq/Dextrose 1,150 ml @ 75 mls/hr 1X ONCE 10/18/19 16:30 10/19/19 07:49 DC 10/18/19 20:02 75 MLS/HR Sodium Bicarbonate 50 meq/Sodium Chloride 1,050 ml @ 75 mls/hr Q14H 07/06/19 07:30 07/11/19 10:28 DC 07/10/19 21:10 75 MLS/HR Sodium Acetate 50 meq/Potassium Acetate 55 meq/ Magnesium Sulfate 20 meq/Calcium Gluconate 10 meq/ Multivitamins 10 ml/Chromium/ Copper/Manganese/ Seleni/Zn 0.5 ml/ Insulin Human Regular 35 unit/ Total Parenteral Nutrition/Amino Acids/Dextrose/ Fat Emulsion Intravenous 1,800 ml @ 75 mls/hr TPN CONT 08/13/19 22:00 08/14/19 21:59 DC 08/13/19 22:03 75 MLS/HR Sodium Bicarbonate (Sodium Bicarb Adult 8.4% Syr) 100 meq 1X ONCE 10/18/19 16:30 10/18/19 16:31 DC 10/18/19 17:07 100 MEQ Sodium Chloride (Normal Saline Flush) 3 ml QSHIFT PRN 10/18/19 14:45 Sodium Chloride 80 meq/Potassium Chloride 30 meq/ Potassium Acetate 30 meq/Magnesium Sulfate 14 meq/ Multivitamins 10 ml/Chromium/ Copper/Manganese/ Seleni/Zn 1 ml/ Insulin Human Regular 15 unit/ Total Parenteral Nutrition/Amino Acids/Dextrose/ Fat Emulsion Intravenous 1,920 ml @ 80 mls/hr TPN CONT 10/19/19 22:00 10/20/19 21:59 DC 10/19/19 23:05 80 MLS/HR Sodium Chloride 90 meq/Calcium Gluconate 10 meq/ Multivitamins 10 ml/Chromium/ Copper/Manganese/ Seleni/Zn 0.5 ml/ Total Parenteral Nutrition/Amino Acids/Dextrose/ Fat Emulsion Intravenous 1,512 ml @ 63 mls/hr TPN CONT 07/06/19 22:00 07/07/19 21:59 DC 07/06/19 22:06 63 MLS/HR Sodium Chloride 90 meq/Calcium Gluconate 10 meq/ Multivitamins 10 ml/Chromium/ Copper/Manganese/ Seleni/Zn 1 ml/ Total Parenteral Nutrition/Amino Acids/Dextrose/ Fat Emulsion Intravenous 55.005 ml @ 2.292 mls/hr TPN CONT 07/06/19 22:00 07/06/19 12:33 DC Sodium Chloride 90 meq/Magnesium Sulfate 10 meq/ Calcium Gluconate 20 meq/ Multivitamins 10 ml/Chromium/ Copper/Manganese/ Seleni/Zn 0.5 ml/ Total Parenteral Nutrition/Amino Acids/Dextrose/ Fat Emulsion Intravenous 1,512 ml @ 63 mls/hr TPN CONT 07/07/19 22:00 07/08/19 21:59 DC 07/07/19 22:25 63 MLS/HR Sodium Chloride 90 meq/Magnesium Sulfate 12 meq/ Calcium Gluconate 15 meq/ Multivitamins 10 ml/Chromium/ Copper/Manganese/ Seleni/Zn 0.5 ml/ Insulin Human Regular 25 unit/ Total Parenteral Nutrition/Amino Acids/Dextrose/ Fat Emulsion Intravenous 1,400 ml @ 58.333 mls/ hr TPN CONT 07/27/19 22:00 07/28/19 21:59 DC 07/27/19 21:41 58.333 MLS/HR Sodium Chloride 90 meq/Potassium Chloride 15 meq/ Magnesium Sulfate 12 meq/Calcium Gluconate 15 meq/ Multivitamins 10 ml/Chromium/ Copper/Manganese/ Seleni/Zn 0.5 ml/ Insulin Human Regular 25 unit/ Total Parenteral Nutrition/Amino Acids/Dextrose/ Fat Emulsion Intravenous 1,400 ml @ 58.333 mls/ hr TPN CONT 07/26/19 22:00 07/27/19 21:59 DC 07/26/19 22:13 58.333 MLS/HR Sodium Chloride 90 meq/Potassium Chloride 15 meq/ Potassium Phosphate 10 mmol/ Magnesium Sulfate 8 meq/Calcium Gluconate 15 meq/ Multivitamins 10 ml/Chromium/ Copper/Manganese/ Seleni/Zn 0.5 ml/ Insulin Human Regular 25 unit/ Total Parenteral Nutrition/Amino Acids/Dextrose/ Fat Emulsion Intravenous 1,400 ml @ 58.333 mls/ hr TPN CONT 07/24/19 22:00 07/25/19 21:59 DC 07/24/19 21:20 58.333 MLS/HR Sodium Chloride 90 meq/Potassium Chloride 15 meq/ Potassium Phosphate 10 mmol/ Magnesium Sulfate 10 meq/Calcium Gluconate 20 meq/ Multivitamins 10 ml/Chromium/ Copper/Manganese/ Seleni/Zn 0.5 ml/ Total Parenteral Nutrition/Amino Acids/Dextrose/ Fat Emulsion Intravenous 1,400 ml @ 58.333 mls/ hr TPN CONT 07/11/19 22:00 07/12/19 21:59 DC 07/11/19 21:42 58.333 MLS/HR Sodium Chloride 90 meq/Potassium Chloride 15 meq/ Potassium Phosphate 10 mmol/ Magnesium Sulfate 12 meq/Calcium Gluconate 15 meq/ Multivitamins 10 ml/Chromium/ Copper/Manganese/ Seleni/Zn 0.5 ml/ Insulin Human Regular 25 unit/ Total Parenteral Nutrition/Amino Acids/Dextrose/ Fat Emulsion Intravenous 1,400 ml @ 58.333 mls/ hr TPN CONT 07/25/19 22:00 07/26/19 21:59 DC 07/25/19 22:24 58.333 MLS/HR Sodium Chloride 90 meq/Potassium Chloride 15 meq/ Potassium Phosphate 15 mmol/ Magnesium Sulfate 10 meq/Calcium Gluconate 15 meq/ Multivitamins 10 ml/Chromium/ Copper/Manganese/ Seleni/Zn 0.5 ml/ Total Parenteral Nutrition/Amino Acids/Dextrose/ Fat Emulsion Intravenous 1,400 ml @ 58.333 mls/ hr TPN CONT 07/12/19 22:00 07/13/19 21:59 DC 07/12/19 22:17 58.333 MLS/HR Sodium Chloride 90 meq/Potassium Chloride 15 meq/ Potassium Phosphate 15 mmol/ Magnesium Sulfate 10 meq/Calcium Gluconate 20 meq/ Multivitamins 10 ml/Chromium/ Copper/Manganese/ Seleni/Zn 0.5 ml/ Total Parenteral Nutrition/Amino Acids/Dextrose/ Fat Emulsion Intravenous 1,200 ml @ 50 mls/hr TPN CONT 07/10/19 22:00 07/10/19 14:17 DC Sodium Chloride 90 meq/Potassium Chloride 15 meq/ Potassium Phosphate 18 mmol/ Magnesium Sulfate 8 meq/Calcium Gluconate 15 meq/ Multivitamins 10 ml/Chromium/ Copper/Manganese/ Seleni/Zn 0.5 ml/ Insulin Human Regular 10 unit/ Total Parenteral Nutrition/Amino Acids/Dextrose/ Fat Emulsion Intravenous 1,400 ml @ 58.333 mls/ hr TPN CONT 07/15/19 22:00 07/16/19 21:59 DC 07/15/19 21:43 58.333 MLS/HR Sodium Chloride 90 meq/Potassium Chloride 15 meq/ Potassium Phosphate 18 mmol/ Magnesium Sulfate 8 meq/Calcium Gluconate 15 meq/ Multivitamins 10 ml/Chromium/ Copper/Manganese/ Seleni/Zn 0.5 ml/ Insulin Human Regular 15 unit/ Total Parenteral Nutrition/Amino Acids/Dextrose/ Fat Emulsion Intravenous 1,400 ml @ 58.333 mls/ hr TPN CONT 07/18/19 22:00 07/19/19 21:59 DC 07/18/19 21:47 58.333 MLS/HR Sodium Chloride 90 meq/Potassium Chloride 15 meq/ Potassium Phosphate 18 mmol/ Magnesium Sulfate 8 meq/Calcium Gluconate 15 meq/ Multivitamins 10 ml/Chromium/ Copper/Manganese/ Seleni/Zn 0.5 ml/ Insulin Human Regular 20 unit/ Total Parenteral Nutrition/Amino Acids/Dextrose/ Fat Emulsion Intravenous 1,400 ml @ 58.333 mls/ hr TPN CONT 07/21/19 22:00 07/22/19 21:59 DC 07/21/19 22:45 58.333 MLS/HR Sodium Chloride 90 meq/Potassium Chloride 15 meq/ Potassium Phosphate 18 mmol/ Magnesium Sulfate 8 meq/Calcium Gluconate 15 meq/ Multivitamins 10 ml/Chromium/ Copper/Manganese/ Seleni/Zn 0.5 ml/ Total Parenteral Nutrition/Amino Acids/Dextrose/ Fat Emulsion Intravenous 1,400 ml @ 58.333 mls/ hr TPN CONT 07/14/19 22:00 07/15/19 21:59 DC 07/14/19 22:00 58.333 MLS/HR Sodium Chloride 90 meq/Potassium Chloride 30 meq/ Potassium Acetate 30 meq/Magnesium Sulfate 15 meq/ Multivitamins 10 ml/Chromium/ Copper/Manganese/ Seleni/Zn 1 ml/ Insulin Human Regular 15 unit/ Total Parenteral Nutrition/Amino Acids/Dextrose/ Fat Emulsion Intravenous 1,680 ml @ 70 mls/hr TPN CONT 11/03/19 22:00 11/04/19 21:59 DC 11/03/19 22:06 70 MLS/HR Sodium Chloride 90 meq/Potassium Phosphate 15 mmol/ Magnesium Sulfate 12 meq/Calcium Gluconate 15 meq/ Multivitamins 10 ml/Chromium/ Copper/Manganese/ Seleni/Zn 0.5 ml/ Insulin Human Regular 30 unit/ Total Parenteral Nutrition/Amino Acids/Dextrose/ Fat Emulsion Intravenous 1,400 ml @ 58.333 mls/ hr TPN CONT 07/29/19 22:00 07/30/19 21:59 DC 07/29/19 21:49 58.333 MLS/HR Sodium Chloride 90 meq/Potassium Phosphate 15 mmol/ Magnesium Sulfate 12 meq/Calcium Gluconate 15 meq/ Multivitamins 10 ml/Chromium/ Copper/Manganese/ Seleni/Zn 0.5 ml/ Insulin Human Regular 40 unit/ Total Parenteral Nutrition/Amino Acids/Dextrose/ Fat Emulsion Intravenous 1,400 ml @ 58.333 mls/ hr TPN CONT 07/30/19 22:00 07/31/19 21:59 DC 07/30/19 21:21 58.333 MLS/HR Sodium Chloride 90 meq/Potassium Phosphate 19 mmol/ Magnesium Sulfate 12 meq/Calcium Gluconate 15 meq/ Multivitamins 10 ml/Chromium/ Copper/Manganese/ Seleni/Zn 0.5 ml/ Insulin Human Regular 40 unit/ Total Parenteral Nutrition/Amino Acids/Dextrose/ Fat Emulsion Intravenous 1,400 ml @ 58.333 mls/ hr TPN CONT 07/31/19 22:00 08/01/19 21:59 DC 07/31/19 21:54 58.333 MLS/HR Sodium Chloride 90 meq/Potassium Phosphate 5 mmol/ Magnesium Sulfate 12 meq/Calcium Gluconate 15 meq/ Multivitamins 10 ml/Chromium/ Copper/Manganese/ Seleni/Zn 0.5 ml/ Insulin Human Regular 30 unit/ Total Parenteral Nutrition/Amino Acids/Dextrose/ Fat Emulsion Intravenous 1,400 ml @ 58.333 mls/ hr TPN CONT 07/28/19 22:00 07/29/19 21:59 DC 07/28/19 22:08 58.333 MLS/HR Sodium Chloride 100 meq/Potassium Chloride 30 meq/ Potassium Acetate 30 meq/Magnesium Sulfate 12 meq/ Multivitamins 10 ml/Chromium/ Copper/Manganese/ Seleni/Zn 1 ml/ Insulin Human Regular 15 unit/ Total Parenteral Nutrition/Amino Acids/Dextrose/ Fat Emulsion Intravenous 1,680 ml @ 70 mls/hr TPN CONT 10/23/19 22:00 10/24/19 21:59 DC 10/23/19 21:23 70 MLS/HR Sodium Chloride 100 meq/Potassium Chloride 40 meq/ Magnesium Sulfate 15 meq/Calcium Gluconate 15 meq/ Multivitamins 10 ml/Chromium/ Copper/Manganese/ Seleni/Zn 0.5 ml/ Insulin Human Regular 35 unit/ Total Parenteral Nutrition/Amino Acids/Dextrose/ Fat Emulsion Intravenous 1,400 ml @ 58.333 mls/ hr TPN CONT 08/07/19 22:00 4/20/20 21:59 DC 08/07/19 22:46 58.333 MLS/HR Sodium Chloride 100 meq/Potassium Chloride 40 meq/ Magnesium Sulfate 20 meq/Calcium Gluconate 10 meq/ Multivitamins 10 ml/Chromium/ Copper/Manganese/ Seleni/Zn 0.5 ml/ Insulin Human Regular 35 unit/ Total Parenteral Nutrition/Amino Acids/Dextrose/ Fat Emulsion Intravenous 1,400 ml @ 58.333 mls/ hr TPN CONT 08/11/19 22:00 08/12/19 21:59 DC 08/12/19 00:06 58.333 MLS/HR Sodium Chloride 100 meq/Potassium Chloride 40 meq/ Magnesium Sulfate 20 meq/Calcium Gluconate 15 meq/ Multivitamins 10 ml/Chromium/ Copper/Manganese/ Seleni/Zn 0.5 ml/ Insulin Human Regular 35 unit/ Total Parenteral Nutrition/Amino Acids/Dextrose/ Fat Emulsion Intravenous 1,400 ml @ 58.333 mls/ hr TPN CONT 08/10/19 22:00 08/11/19 21:59 DC 08/10/19 22:27 58.333 MLS/HR Sodium Chloride 100 meq/Potassium Phosphate 10 mmol/ Magnesium Sulfate 12 meq/Calcium Gluconate 15 meq/ Multivitamins 10 ml/Chromium/ Copper/Manganese/ Seleni/Zn 0.5 ml/ Insulin Human Regular 35 unit/ Potassium Chloride 20 meq/ Total Parenteral Nutrition/Amino Acids/Dextrose/ Fat Emulsion Intravenous 1,400 ml @ 58.333 mls/ hr TPN CONT 08/04/19 22:00 08/05/19 21:59 DC 08/04/19 22:10 58.333 MLS/HR Sodium Chloride 100 meq/Potassium Phosphate 19 mmol/ Magnesium Sulfate 12 meq/Calcium Gluconate 15 meq/ Multivitamins 10 ml/Chromium/ Copper/Manganese/ Seleni/Zn 0.5 ml/ Insulin Human Regular 40 unit/ Potassium Chloride 20 meq/ Total Parenteral Nutrition/Amino Acids/Dextrose/ Fat Emulsion Intravenous 1,400 ml @ 58.333 mls/ hr TPN CONT 08/03/19 22:00 08/04/19 21:59 DC 08/03/19 21:20 58.333 MLS/HR Sodium Chloride 100 meq/Potassium Phosphate 5 mmol/ Magnesium Sulfate 12 meq/Calcium Gluconate 15 meq/ Multivitamins 10 ml/Chromium/ Copper/Manganese/ Seleni/Zn 0.5 ml/ Insulin Human Regular 35 unit/ Potassium Chloride 20 meq/ Total Parenteral Nutrition/Amino Acids/Dextrose/ Fat Emulsion Intravenous 1,400 ml @ 58.333 mls/ hr TPN CONT 08/05/19 22:00 08/06/19 21:59 DC 08/05/19 22:59 58.333 MLS/HR Sodium Chloride 110 meq/Potassium Chloride 30 meq/ Potassium Acetate 30 meq/Magnesium Sulfate 15 meq/ Multivitamins 10 ml/Chromium/ Copper/Manganese/ Seleni/Zn 1 ml/ Insulin Human Regular 15 unit/ Total Parenteral Nutrition/Amino Acids/Dextrose/ Fat Emulsion Intravenous 1,680 ml @ 70 mls/hr TPN CONT 11/05/19 22:00 11/06/19 21:59 DC 11/05/19 22:01 70 MLS/HR Sodium Chloride 110 meq/Sodium Phosphate 10 mmol/ Potassium Chloride 30 meq/ Potassium Acetate 30 meq/Magnesium Sulfate 15 meq/ Multivitamins 10 ml/Chromium/ Copper/Manganese/ Seleni/Zn 1 ml/ Insulin Human Regular 15 unit/ Total Parenteral Nutrition/Amino Acids/Dextrose/ Fat Emulsion Intravenous 1,680 ml @ 70 mls/hr TPN CONT 11/06/19 22:00 11/07/19 21:59 DC 11/06/19 22:03 70 MLS/HR Sodium Chloride 120 meq/Sodium Phosphate 10 mmol/ Potassium Chloride 30 meq/ Potassium Acetate 30 meq/Magnesium Sulfate 15 meq/ Multivitamins 10 ml/Chromium/ Copper/Manganese/ Seleni/Zn 1 ml/ Insulin Human Regular 15 unit/ Total Parenteral Nutrition/Amino Acids/Dextrose/ Fat Emulsion Intravenous 1,680 ml @ 70 mls/hr TPN CONT 11/08/19 22:00 11/09/19 21:59 11/08/19 22:11 70 MLS/HR Succinylcholine Chloride (Anectine) 120 mg 1X ONCE 07/11/19 08:30 07/11/19 08:31 DC 07/11/19 08:34 120 MG Vancomycin HCl (Vanco Per Pharmacy) 1 each PRN DAILY PRN 10/30/19 09:15 11/02/19 07:41 DC 11/01/19 02:46 1 EACH Vancomycin HCl (Vancomycin Random Level) 1 each 1X ONCE 11/01/19 01:00 11/01/19 01:01 DC 11/01/19 01:00 1 EACH Vancomycin HCl (Vancomycin Trough Level) 1 each 1X ONCE 11/02/19 09:30 11/02/19 09:31 Cancel Vancomycin HCl 1.5 gm/Sodium Chloride 500 ml @ 250 mls/hr Q12H 11/01/19 10:00 11/02/19 07:41 DC 11/01/19 22:07 250 MLS/HR Vancomycin HCl 2 gm/Sodium Chloride 500 ml @ 250 mls/hr 1X ONCE 10/30/19 10:00 10/30/19 11:59 DC 10/30/19 10:34 250 MLS/HR Vasopressin (Vasostrict) 20 unit STK-MED ONCE 10/18/19 12:23 10/18/19 12:23 DC Vasopressin 20 unit/Dextrose 101 ml @ 12 mls/hr CONT PRN 10/18/19 15:30 10/25/19 04:17 12 MLS/HR Vecuronium [place] (Norcuron Bolus) 6 mg PRN Q6HRS PRN 08/25/19 19:15 08/25/19 19:35 DC Labs: Lab Laboratory Tests Test 11/08/19 12:21 11/08/19 18:19 11/09/19 00:09 11/09/19 05:30 Glucose (Fingerstick) 143 mg/dL (70-99) 146 mg/dL (70-99) 147 mg/dL (70-99) White Blood Count 16.7 x10^3/uL (4.0-11.0) Red Blood Count 2.48 x10^6/uL (3.50-5.40) Hemoglobin 6.9 g/dL (12.0-15.5) Hematocrit 21.2 % (36.0-47.0) Mean Corpuscular Volume 86 fL (79-100) Mean Corpuscular Hemoglobin 28 pg (25-35) Mean Corpuscular Hemoglobin Concent 33 g/dL (31-37) Red Cell Distribution Width 15.9 % (11.5-14.5) Platelet Count 583 x10^3/uL (140-400) Neutrophils (%) (Auto) 84 % (31-73) Lymphocytes (%) (Auto) 8 % (24-48) Monocytes (%) (Auto) 5 % (0-9) Eosinophils (%) (Auto) 3 % (0-3) Basophils (%) (Auto) 0 % (0-3) Neutrophils # (Auto) 14.0 x10^3/uL (1.8-7.7) Lymphocytes # (Auto) 1.3 x10^3/uL (1.0-4.8) Monocytes # (Auto) 0.8 x10^3/uL (0.0-1.1) Eosinophils # (Auto) 0.6 x10^3/uL (0.0-0.7) Basophils # (Auto) 0.0 x10^3/uL (0.0-0.2) Test 11/09/19 05:31 Glucose (Fingerstick) 150 mg/dL (70-99) Micro NEG ALEXANDRA 56 PSEUDOMONAS AERUGINOSA ANTIBIOTIC RESULT INTERPRETATION AMIKACIN <=16 S AZTREONAM >16 R CEFTAZIDIME >16 R CIPROFLOXACIN <=0.25 S CEFEPIME 16 I GENTAMICIN <=2 S LEVOFLOXACIN <=0.5 S CONTINUED ON NEXT PAGE RUN DATE: 09/28/19 [facility] *LIVE* PAGE 2 RUN TIME: 1121 Specimen Inquiry SPEC: [id number] PATIENT: SCOTT CUELLAR [id number] (Continued) Procedure Result ANTIMICROBIAL SUSCEPTIBILITY Preliminary (continued) MEROPENEM <=1 S PIPERACILLIN/TAZOBACTAM 64 S TOBRAMYCIN <=2 S Unless otherwise specified, Testing Performed by: [address] [address] For Inquires, the Physician may contact the Microbiology department at [phone] Objective: Assessment: Patient with prolonged hospitalization more than 4 months Multiple medical problems Multiple surgical procedures S/P Exp. Isak, SAURABH, ronel, G-J tube & pancreatic necrosectomy on 10/17, C. parapsilosis & PSAE (I-merrem/ceftazidime/AZT/cefepime)) Leucocytosis -trending upward Fever Acute gallstone pancreatitis with persistent necrosis - 07/27. CT A/P Increased ascites. 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 status post KAYLIN drain placement; C. parapsilosis. s/p drain 08/23 + yeast & high amylase; s/p additional drain on 08/25. Drains removed. -08/23. fluid devyn parapsilosis fluid, amylase high - 09/23 showed multiple pseudocysts, slight larger on the right. s/p drains x 3, 09/24. + PSAE (MDRO-R Cefepime, Zosyn ALEXANDRA < 64) and yeast, -09/24 s/p drain replacement x 3; fluid cult PSAE (MDRO), yeast; treated -10/29 CT A/P shows smaller fluid collections. -722 CT abdomen and pelvis drains in place Ascites s/p paracentesis 08/02 & 08/23. C. parapsilosis Cholelithiasis with thickening of the gallbladder wall. JUANA, Hyperkalemia, Metabolic acidosis off dialysis Acute hypoxic resp failure. trach/vent. sputum 09/30 + PSAE (I merrem) ; sputum culture November 05+ for PSAE R Merrem, sensitive to cefepime Pleural effusion status post CTS left side Abdominal fluid culture MDRO Pseudomonas, yeast Plan: Plan of Care Change Avycaz to cefepime cont micafungin and dapto CK 11 on 11/05 repeat bc f/u psae in sputum BC from 11/01 neg to date Monitor WBC/temp Wound care /drain management as directed Leucocytosis could be from not adequate drainage of intraabdo fluid/abscess ... Gen surgery following C diff neg 10/29 Contact isolation for CRE/MDRO D/w nursing Critically ill residential prognosis poor YUNIOR JONES MD Nov 09, 2019 07:47
[2019-11-09] MEDS: ACETYLCYSTEINE 20% for RESP TX 600 MG/3 ML. NEB SCH ×2 (08:00→20:00)
[2019-11-09] MEDS: fentaNYL 12MCG/HR PATCH 1 PATCH PATCH.TD72 TD SCH (09:00)
[2019-11-09] MEDS: PANTOPRAZOLE IV PUSH 40 MG VIAL. IVP SCH (09:01)
[2019-11-09] MEDS: CEFEPIME HCL IV Push 2 GM VIAL. IVP SCH ×2 (09:02→20:53)
[2019-11-09] MEDS: ENOXAPARIN 40 MG/0.4 ML SYRINGE. SQ SCH (09:02)
[2019-11-09] MEDS: MICAFUNGIN 100 MG in IV DEXTROSE 5% 100ML 100 ML IV SCH (09:04)
[2019-11-09] MEDS: DAPTOmycin (GENERIC) IVPB 500 MG in IV NORMAL SALINE 50ML 50 ML IV SCH (09:04)
--- NOTE | 2019-11-09 09:22 | PDOC ---
PULMONARY PROGRESS NOTES Subjective Patient awake alert following commands on room air Vitals Vital Signs Date Time Temp Pulse Resp B/P (MAP) Pulse Ox O2 Delivery O2 Flow Rate FiO2 11/09/19 09:00 100 Nasal Cannula 1.0 11/09/19 04:00 98.1 123 29 109/66 (80) 98.1 ROS: No Nausea, No Chest Pain, No Increase Cough General: Alert HEENT: Other (trach site ok) Lungs: Crackles, Other (l ct) Cardiovascular: S1, S2 Abdomen: Soft, Non-tender, Other (multiple KAYLIN drains ) Neuro Exam: Alert Extremities: Other (+1 BLE edema) Skin: Warm Labs Laboratory Tests Test 11/07/19 14:39 11/07/19 18:03 11/07/19 23:59 11/08/19 05:22 Glucose (Fingerstick) 151 mg/dL (70-99) 128 mg/dL (70-99) 138 mg/dL (70-99) 141 mg/dL (70-99) Test 11/08/19 12:21 11/08/19 18:19 11/09/19 00:09 11/09/19 05:30 Glucose (Fingerstick) 143 mg/dL (70-99) 146 mg/dL (70-99) 147 mg/dL (70-99) White Blood Count 16.7 x10^3/uL (4.0-11.0) Red Blood Count 2.48 x10^6/uL (3.50-5.40) Hemoglobin 6.9 g/dL (12.0-15.5) Hematocrit 21.2 % (36.0-47.0) Mean Corpuscular Volume 86 fL (79-100) Mean Corpuscular Hemoglobin 28 pg (25-35) Mean Corpuscular Hemoglobin Concent 33 g/dL (31-37) Red Cell Distribution Width 15.9 % (11.5-14.5) Platelet Count 583 x10^3/uL (140-400) Neutrophils (%) (Auto) 84 % (31-73) Lymphocytes (%) (Auto) 8 % (24-48) Monocytes (%) (Auto) 5 % (0-9) Eosinophils (%) (Auto) 3 % (0-3) Basophils (%) (Auto) 0 % (0-3) Neutrophils # (Auto) 14.0 x10^3/uL (1.8-7.7) Lymphocytes # (Auto) 1.3 x10^3/uL (1.0-4.8) Monocytes # (Auto) 0.8 x10^3/uL (0.0-1.1) Eosinophils # (Auto) 0.6 x10^3/uL (0.0-0.7) Basophils # (Auto) 0.0 x10^3/uL (0.0-0.2) Test 11/09/19 05:31 Glucose (Fingerstick) 150 mg/dL (70-99) Laboratory Tests Test 11/08/19 12:21 11/08/19 18:19 11/09/19 00:09 11/09/19 05:30 Glucose (Fingerstick) 143 mg/dL (70-99) 146 mg/dL (70-99) 147 mg/dL (70-99) White Blood Count 16.7 x10^3/uL (4.0-11.0) Red Blood Count 2.48 x10^6/uL (3.50-5.40) Hemoglobin 6.9 g/dL (12.0-15.5) Hematocrit 21.2 % (36.0-47.0) Mean Corpuscular Volume 86 fL (79-100) Mean Corpuscular Hemoglobin 28 pg (25-35) Mean Corpuscular Hemoglobin Concent 33 g/dL (31-37) Red Cell Distribution Width 15.9 % (11.5-14.5) Platelet Count 583 x10^3/uL (140-400) Neutrophils (%) (Auto) 84 % (31-73) Lymphocytes (%) (Auto) 8 % (24-48) Monocytes (%) (Auto) 5 % (0-9) Eosinophils (%) (Auto) 3 % (0-3) Basophils (%) (Auto) 0 % (0-3) Neutrophils # (Auto) 14.0 x10^3/uL (1.8-7.7) Lymphocytes # (Auto) 1.3 x10^3/uL (1.0-4.8) Monocytes # (Auto) 0.8 x10^3/uL (0.0-1.1) Eosinophils # (Auto) 0.6 x10^3/uL (0.0-0.7) Basophils # (Auto) 0.0 x10^3/uL (0.0-0.2) Test 11/09/19 05:31 Glucose (Fingerstick) 150 mg/dL (70-99) Medications Active Scripts Medications Dose Route/Sig Max Daily Dose Days Date Category Bisoprolol Fumarate 5 Mg Tablet 10 Mg PO DAILY 07/04/19 Reported Comments cxr 10/30, reviewed, b ll infilt effusion atelectasis ct reviewed 10/30/19, Decreased left-sided effusion after catheter placement. The right-sided effusion has increased as has atelectasis. There has been exchange or placement of multiple drainage tubes and a gastrojejunostomy tube. Both collections are smaller. No significant new abdominal fluid collection is seen. The jejunal component of the gastrojejunostomy tube appears to be looped in the proximal small bowel. ct abdomen /pelvis 09/23 1. Removal of the percutaneous pigtail drainage catheters since the prior exam. Sequela of pancreatitis with extensive pseudocysts again demonstrated, the right-sided collections are slightly larger since the prior exam, the left-sided collections are stable. See above. 2. Moderate to large left pleural effusion with atelectasis and collapse of most of the left lower lobe, stable. Small right pleural effusion is stable. 3. Gallstone. ct chest 10/02 reviewed GRAM NEG COCCOBACILLI:MANY SQUAMOUS EPI CELL:RARE PMN (WBCs):FEW Unless otherwise specified, Testing Performed by: [address] [address] For Inquires, the Physician may contact the Microbiology department at [phone] RESPIRATORY CULTURE Final Final MANY GRAM NEGATIVE RODS on 10/03/19 at 1107 FINAL ID= [PSEUDOMONAS AERUGINOSA] MICRO CHARGES PSEUDOMONAS AERUGINOSA ANTIMICROBIAL SUSCEPTIBILITY Final Comment NEG ALEXANDRA 56 PSEUDOMONAS AERUGINOSA ANTIBIOTIC RESULT INTERPRETATION AMIKACIN <=16 S AZTREONAM <=4 S CEFTAZIDIME <=1 S CIPROFLOXACIN <=0.25 S CEFEPIME <=2 S CEFTAZIDIME/AVIBACTAM <=4 S GENTAMICIN <=2 S LEVOFLOXACIN <=0.5 S Impression . IMPRESSION: 1. Acute hypoxemic respiratory failure secondary to ARDS status post trach, developed anemia 09/24, blood drainage from RLQ abdomen drain site, and surrounding firmness / developed septic shock 09/24 from abdomen source, required levo 09/24 s/p 3 new drains 09/24 with brown color drainage, 2. Gallstone pancreatitis, now with ongoing bleeding from prior drain. Anemic. s/p Tx multiple units over several days 3. septic shock/sepsis, recurrent 09/24, source abdomen. new fever ? aspiration pneumonitis/pneumonia 4. Acute kidney injury-, Off HD--renal function decling. suspect JUANA on CKD due to hypotension , improved now 5. Acute gallstone pancreatitis. 6. Hypoalbuminemia. 7. Moderate persistent effusions, s/p left thora 08/29, reaccumulation of left effusion. O2 requirement not changed. 8. Fever- ,hypotension. suspect recurrent sepsis/ likely pancreatic source. Per ID, per surgery-- 9. Acute drop in hemoglobin 10. Covid 19 testing negative 11. Moderate to large ascites-S/P paracentisis 12.S/P paracentisis with 4 liters removed on 08/03/19 13. S/P IR drain placement on 08/26/2019, removal, re inserted 09/24 14. Depression/Anxiety 15., Fever, per ID 16. Status post chest tube placement, not much drainage 10/17 S/P Exploratory laparotomy, lysis of adhesions, subtotal cholecystectomy with cholangiogram, gastrojejunostomy tube placement, pancreatic necrosectomy leukocytosis- improving Plan . Transfuse as needed Antibiotics per ID changes made,Change Avycaz to cefepime cont micafungin and dapto Discussed with RN afebrile this morning Monitor H&H Trach shield, as tolerated, on room air Up to chair, pt/ot Follow culture Follow surgery input DVT GI prophylaxis ABX per ID f/u BC /resp cultures Continue TPN for nutrition support DVT/GI PPX HARMEET BEE MD Nov 09, 2019 09:22
[2019-11-09] MEDS: TPN PER PHARMACY MC PRN (09:24)
--- NOTE | 2019-11-09 09:27 | NUR ---
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, 8 inches Weight: 87.8 kg Current diet: NPO LABS: Sodium: 136 Potassium: 4.2 Chloride: 102 Calcium: 9.6 Corrected Calcium: 11.92 Magnesium: 2.1 CO2: 30 SCr: 0.5 Glucose: 114-150 Albumin: 1.1 AST: 25 ALT: 37 TPN FORMULA: TPN TYPE: Central Continuous AMINO ACIDS: 95 gm DEXTROSE: 250 gm LIPIDS: 30 gm SODIUM CHLORIDE: 120 mEq SODIUM PHOSPHATE: 10 mmol POTASSIUM CHLORIDE: 30 mEq POTASSIUM ACETATE: 30 mEq MAGNESIUM: 15 mEq INSULIN: 15 units MULTIPLE VITAMIN: 10 ml TRACE ELEMENTS: 1 ml ml(s) TPN PLAN: Macro's adjusted per social contact worker rec's. Labs ordered for AM. R: Adjust TPN per plan and ordered formula Will monitor electrolytes, glucose, and tolerance to TPN. Raeann Mcdonnell RPH, 11/09/19 [id number]
--- NOTE | 2019-11-09 10:53 | PDOC ---
G I PROGRESS NOTE Subjective Sleeping, not awakened. Objective Others' notes reviewed. Physical Exam No PE. Review of Relevant I have reviewed the following items kolby (where applicable) has been applied. Labs Laboratory Tests Test 11/07/19 14:39 11/07/19 18:03 11/07/19 23:59 11/08/19 05:22 Glucose (Fingerstick) 151 mg/dL (70-99) 128 mg/dL (70-99) 138 mg/dL (70-99) 141 mg/dL (70-99) Test 11/08/19 12:21 11/08/19 18:19 11/09/19 00:09 11/09/19 05:30 Glucose (Fingerstick) 143 mg/dL (70-99) 146 mg/dL (70-99) 147 mg/dL (70-99) White Blood Count 16.7 x10^3/uL (4.0-11.0) Red Blood Count 2.48 x10^6/uL (3.50-5.40) Hemoglobin 6.9 g/dL (12.0-15.5) Hematocrit 21.2 % (36.0-47.0) Mean Corpuscular Volume 86 fL (79-100) Mean Corpuscular Hemoglobin 28 pg (25-35) Mean Corpuscular Hemoglobin Concent 33 g/dL (31-37) Red Cell Distribution Width 15.9 % (11.5-14.5) Platelet Count 583 x10^3/uL (140-400) Neutrophils (%) (Auto) 84 % (31-73) Lymphocytes (%) (Auto) 8 % (24-48) Monocytes (%) (Auto) 5 % (0-9) Eosinophils (%) (Auto) 3 % (0-3) Basophils (%) (Auto) 0 % (0-3) Neutrophils # (Auto) 14.0 x10^3/uL (1.8-7.7) Lymphocytes # (Auto) 1.3 x10^3/uL (1.0-4.8) Monocytes # (Auto) 0.8 x10^3/uL (0.0-1.1) Eosinophils # (Auto) 0.6 x10^3/uL (0.0-0.7) Basophils # (Auto) 0.0 x10^3/uL (0.0-0.2) Test 11/09/19 05:31 Glucose (Fingerstick) 150 mg/dL (70-99) Laboratory Tests Test 11/08/19 12:21 11/08/19 18:19 11/09/19 00:09 11/09/19 05:30 Glucose (Fingerstick) 143 mg/dL (70-99) 146 mg/dL (70-99) 147 mg/dL (70-99) White Blood Count 16.7 x10^3/uL (4.0-11.0) Red Blood Count 2.48 x10^6/uL (3.50-5.40) Hemoglobin 6.9 g/dL (12.0-15.5) Hematocrit 21.2 % (36.0-47.0) Mean Corpuscular Volume 86 fL (79-100) Mean Corpuscular Hemoglobin 28 pg (25-35) Mean Corpuscular Hemoglobin Concent 33 g/dL (31-37) Red Cell Distribution Width 15.9 % (11.5-14.5) Platelet Count 583 x10^3/uL (140-400) Neutrophils (%) (Auto) 84 % (31-73) Lymphocytes (%) (Auto) 8 % (24-48) Monocytes (%) (Auto) 5 % (0-9) Eosinophils (%) (Auto) 3 % (0-3) Basophils (%) (Auto) 0 % (0-3) Neutrophils # (Auto) 14.0 x10^3/uL (1.8-7.7) Lymphocytes # (Auto) 1.3 x10^3/uL (1.0-4.8) Monocytes # (Auto) 0.8 x10^3/uL (0.0-1.1) Eosinophils # (Auto) 0.6 x10^3/uL (0.0-0.7) Basophils # (Auto) 0.0 x10^3/uL (0.0-0.2) Test 11/09/19 05:31 Glucose (Fingerstick) 150 mg/dL (70-99) Microbiology 11/08/19 Gram Stain - Final, Resulted 11/08/19 Aerobic and Anaerobic Culture - Preliminary, Resulted 11/06/19 Gram Stain Evaluation - Final, Complete 11/06/19 Respiratory Culture - Final, Complete 11/06/19 Antimicrobic Susceptibility - Final, Complete 11/02/19 Blood Culture - Final, Complete NO GROWTH AFTER 5 DAYS 10/18/19 Gram Stain - Final, Complete 10/18/19 Aerobic and Anaerobic Culture - Final, Complete 10/18/19 Antimicrobic Susceptibility - Final, Complete 09/25/19 Urine Culture - Final, Complete 09/17/19 Gram Stain - Final, Complete 09/17/19 Aerobic Culture - Final, Complete White count down some. Vitals/I & O Vital Sign - Last 24 Hours 11/08/19 11/08/19 11/08/19 11/08/19 11:00 12:00 12:18 12:35 Temp 100.8 100.8 Pulse 126 131 Resp 32 35 39 B/P (MAP) 121/75 (90) 128/83 (98) Pulse Ox 98 92 94 100 O2 Delivery Nasal Cannula Nasal Cannula Nasal Cannula Nasal Cannula O2 Flow Rate 2.0 2.0 2.0 2.0 11/08/19 11/08/19 11/08/19 11/08/19 13:03 14:50 15:38 15:52 Resp 36 34 30 Pulse Ox 99 99 100 O2 Delivery Nasal Cannula Nasal Cannula Nasal Cannula Nasal Cannula O2 Flow Rate 2.0 2.0 2.0 2.0 11/08/19 11/08/19 11/08/19 11/08/19 16:00 16:41 17:11 19:42 Temp 98.0 98.0 Pulse 137 Resp 35 38 30 B/P (MAP) 114/91 (99) Pulse Ox 96 100 97 100 O2 Delivery Nasal Cannula Nasal Cannula Nasal Cannula Nasal Cannula O2 Flow Rate 1.0 2.1 1.0 1.0 11/08/19 11/08/19 11/08/19 11/09/19 20:00 20:00 23:07 00:00 Temp 98.4 98.7 98.4 98.7 Pulse 120 120 Resp 25 23 B/P (MAP) 112/77 (89) 119/79 (92) Pulse Ox 100 98 98 O2 Delivery Nasal Cannula Nasal Cannula Nasal Cannula Nasal Cannula O2 Flow Rate 1.0 1.0 1.0 1.0 11/09/19 11/09/19 11/09/19 11/09/19 03:54 04:00 08:23 09:00 Temp 98.1 98.1 Pulse 123 Resp 29 B/P (MAP) 109/66 (80) Pulse Ox 95 94 100 100 O2 Delivery Nasal Cannula Nasal Cannula Room Air Nasal Cannula O2 Flow Rate 1.0 1.0 1.0 Intake and Output 11/08/19 11/08/19 11/09/19 15:00 23:00 07:00 Intake Total 1186.7 ml 100 ml 1156 ml Output Total 390 ml 1385 ml 820 ml Balance 796.7 ml -1285 ml 336 ml Quite a lot out of RUQ KAYLIN (one in GB bed). Images Reviewed CT. Still sizable fluid collection right mid/lower abdomen. Gallstone noted. Problem List Problems Medical Problems: (1) Acute pancreatitis Status: Acute (2) Cholelithiasis Status: Acute Assessment Severe biliary pancreatitis/multiple complications and interventions. Still with apparently undrained fluid collection and intermittent fever. Plan of Care Note Drain fluid? Continue other per ID, Pulm, Surgery. Justicifation of Admission Dx: Justifications for Admission: Justification of Admission Dx: Yes MARY RIVAS MD Nov 09, 2019 10:53
--- NOTE | 2019-11-09 12:44 | PDOC ---
SURGICAL PROGRESS NOTE Subjective Pt looks much better, up in chair, interactive Vital Signs Vital Signs Date Time Temp Pulse Resp B/P (MAP) Pulse Ox O2 Delivery O2 Flow Rate FiO2 11/09/19 12:40 100 Room Air 11/09/19 11:41 100.4 139 32 125/81 100.4 11/09/19 09:00 1.0 I&O Intake and Output 11/09/19 06:59 Intake Total 2442.7 ml Output Total 2595 ml Balance -152.3 ml IV Total 2442.7 ml Output Urine Total 1330 ml Gastric Drainage Total 400 ml Chest Tube Drainage Total 90 ml Drainage Total 775 ml General: Alert, Cooperative, No acute distress Abdomen: Soft, No tenderness, Other (drains with drainage) Labs Laboratory Tests Test 11/07/19 14:39 11/07/19 18:03 11/07/19 23:59 11/08/19 05:22 Glucose (Fingerstick) 151 mg/dL (70-99) 128 mg/dL (70-99) 138 mg/dL (70-99) 141 mg/dL (70-99) Test 11/08/19 12:21 11/08/19 18:19 11/09/19 00:09 11/09/19 05:30 Glucose (Fingerstick) 143 mg/dL (70-99) 146 mg/dL (70-99) 147 mg/dL (70-99) White Blood Count 16.7 x10^3/uL (4.0-11.0) Red Blood Count 2.48 x10^6/uL (3.50-5.40) Hemoglobin 6.9 g/dL (12.0-15.5) Hematocrit 21.2 % (36.0-47.0) Mean Corpuscular Volume 86 fL (79-100) Mean Corpuscular Hemoglobin 28 pg (25-35) Mean Corpuscular Hemoglobin Concent 33 g/dL (31-37) Red Cell Distribution Width 15.9 % (11.5-14.5) Platelet Count 583 x10^3/uL (140-400) Neutrophils (%) (Auto) 84 % (31-73) Lymphocytes (%) (Auto) 8 % (24-48) Monocytes (%) (Auto) 5 % (0-9) Eosinophils (%) (Auto) 3 % (0-3) Basophils (%) (Auto) 0 % (0-3) Neutrophils # (Auto) 14.0 x10^3/uL (1.8-7.7) Lymphocytes # (Auto) 1.3 x10^3/uL (1.0-4.8) Monocytes # (Auto) 0.8 x10^3/uL (0.0-1.1) Eosinophils # (Auto) 0.6 x10^3/uL (0.0-0.7) Basophils # (Auto) 0.0 x10^3/uL (0.0-0.2) Test 11/09/19 05:31 Glucose (Fingerstick) 150 mg/dL (70-99) Laboratory Tests Test 11/08/19 18:19 11/09/19 00:09 11/09/19 05:30 11/09/19 05:31 Glucose (Fingerstick) 146 mg/dL (70-99) 147 mg/dL (70-99) 150 mg/dL (70-99) White Blood Count 16.7 x10^3/uL (4.0-11.0) Red Blood Count 2.48 x10^6/uL (3.50-5.40) Hemoglobin 6.9 g/dL (12.0-15.5) Hematocrit 21.2 % (36.0-47.0) Mean Corpuscular Volume 86 fL (79-100) Mean Corpuscular Hemoglobin 28 pg (25-35) Mean Corpuscular Hemoglobin Concent 33 g/dL (31-37) Red Cell Distribution Width 15.9 % (11.5-14.5) Platelet Count 583 x10^3/uL (140-400) Neutrophils (%) (Auto) 84 % (31-73) Lymphocytes (%) (Auto) 8 % (24-48) Monocytes (%) (Auto) 5 % (0-9) Eosinophils (%) (Auto) 3 % (0-3) Basophils (%) (Auto) 0 % (0-3) Neutrophils # (Auto) 14.0 x10^3/uL (1.8-7.7) Lymphocytes # (Auto) 1.3 x10^3/uL (1.0-4.8) Monocytes # (Auto) 0.8 x10^3/uL (0.0-1.1) Eosinophils # (Auto) 0.6 x10^3/uL (0.0-0.7) Basophils # (Auto) 0.0 x10^3/uL (0.0-0.2) Problem List Problems Medical Problems: (1) Acute pancreatitis Status: Acute (2) Cholelithiasis Status: Acute Assessment/Plan s/p necrosectomy cont drains, pancreatic fluid should improve, given time pt and wbc improved with current changes. Justicifation of Admission Dx: Justifications for Admission: Justification of Admission Dx: Yes DAVON SIMMS MD Nov 09, 2019 12:44
--- NOTE | 2019-11-09 12:47 | PDOC ---
[facility] PROGRESS NOTE Chief Complaint Chief Complaint Postop day 21 (Exploratory laparotomy, lysis of adhesions, subtotal cholecystectomy with cholangiogram, gastrojejunostomy tube placement, pancreatic necrosectomy) Acute hypoxic Respiratory failure required mechanical ventilation Tracheostomy bilateral pleural effusions/pulm edema s/p Throacentesis on 10/03/2019 Severe Acute gallstone pancreatitis (not a surgical candidate at this time) with necrosis Acute kidney failure now requiring dialysis Gallstones (Calculus of gallbladder with acute cholecystitis without obstruction) HTN Intractable pain Intractable nausea Covid 19 negative. Acute on chronic anemia EEG: No seizure activity Fever - intermittent ? Ileus with vomiting Abd distention - U/S and CT reviewed s/p 0.4 L of opaque, debris-containing ascites was removed 08/23 Acute pancreatitis with persistent necrosis Gallstone pancreatitis with necrosis. -CT A/P 09/23 showed multiple pseudocysts, slight larger on the right. s/p drains x 3, 09/24. + PSAE (MDRO-R Cefepime, Zosyn ALEXANDRA < 64) and yeast, -s/p drain 08/14. C. parapsilosis. s/p drain 08/23 + yeast & high amylase; s/p additional drain on 08/25. Drains removed. Ascites s/p paracentesis 08/02 & 08/23. C. parapsilosis JUANA. off HD. A large fluid collection in the pancreatic bed has slightly decreased in size, d escribed below, the pancreas itself is difficult to visualize, which could be due to necrosis or obscuration of pancreatic parenchyma from the surrounding fluid collection.10/02 - 08/14 status post KAYLIN drain placement + C paropsilosis. s/p additional drains 08/25 Anemia - S/p PRBCs. Cholelithiasis with thickening of the gallbladder wall. Leucocytosis improving JUANA, hyperkalemia, Metabolic acidosis off dialysis hypocalcemia Prediabetes HTN s/p trach Hyperglycemia severe protein-caloric malnutrition Moderate to large left pleural effusion with atelectasis and collapse of most of the left lower lobe, stable History of Present Illness History of Present Illness 11/09/2019 Patient seen and examined in the ICU She is still extremely critically ill Appears extremely weak frail and pale Discussed with RN Chart reviewed 11/08/2019 Patient seen and examined in the ICU She is still extremely critically ill Appears extremely weak frail and pale Discussed with RN Chart reviewed Vitals/I&O Vitals/I&O: Vital Signs Date Time Temp Pulse Resp B/P (MAP) Pulse Ox O2 Delivery O2 Flow Rate FiO2 11/09/19 12:40 100 Room Air 11/09/19 11:41 100.4 139 32 125/81 100.4 11/09/19 09:00 1.0 I & O 11/08/19 11/08/19 11/09/19 15:00 23:00 07:00 Intake Total 1186.7 ml 100 ml 1156 ml Output Total 390 ml 1385 ml 820 ml Balance 796.7 ml -1285 ml 336 ml Physical Exam Physical Exam: GENERAL: Sitting in chair, NAD HEENT: Pupils equal, oral cavity dry. NGT out NECK: Tracheostomy LUNGS: Diminished aeration bases, CT on left HEART: S1, S2, regular, tachy 110s ABDOMEN: Distended, bowel sounds hypoactive, soft, goyal x 2, 3 KAYLIN drains, G-J tube : Lind in place EXTREMITIES: Trace generalized edema, no cyanosis. RADHA hose bilaterally, SKIN: warm touch. No signs of rash. NEURO: Awake and cooperative LUE-PICC without signs of complications General: Alert, Cooperative Heart: Regular rate (SR/ST), Other (distant heart sounds) Lungs: Crackles, Other (l ct) Abdomen: Soft, No tenderness, Other (drains in place, min output on some) Extremities: Other (Diffuse edema) Skin: No rashes, No significant lesion Labs Labs: Laboratory Tests Test 11/08/19 18:19 11/09/19 00:09 11/09/19 05:30 11/09/19 05:31 Glucose (Fingerstick) 146 mg/dL (70-99) 147 mg/dL (70-99) 150 mg/dL (70-99) White Blood Count 16.7 x10^3/uL (4.0-11.0) Red Blood Count 2.48 x10^6/uL (3.50-5.40) Hemoglobin 6.9 g/dL (12.0-15.5) Hematocrit 21.2 % (36.0-47.0) Mean Corpuscular Volume 86 fL (79-100) Mean Corpuscular Hemoglobin 28 pg (25-35) Mean Corpuscular Hemoglobin Concent 33 g/dL (31-37) Red Cell Distribution Width 15.9 % (11.5-14.5) Platelet Count 583 x10^3/uL (140-400) Neutrophils (%) (Auto) 84 % (31-73) Lymphocytes (%) (Auto) 8 % (24-48) Monocytes (%) (Auto) 5 % (0-9) Eosinophils (%) (Auto) 3 % (0-3) Basophils (%) (Auto) 0 % (0-3) Neutrophils # (Auto) 14.0 x10^3/uL (1.8-7.7) Lymphocytes # (Auto) 1.3 x10^3/uL (1.0-4.8) Monocytes # (Auto) 0.8 x10^3/uL (0.0-1.1) Eosinophils # (Auto) 0.6 x10^3/uL (0.0-0.7) Basophils # (Auto) 0.0 x10^3/uL (0.0-0.2) Assessment and Plan Assessmemt and Plan Problems Medical Problems: (1) Acute pancreatitis Status: Acute (2) Cholelithiasis Status: Acute ASSESSMENT Postop day 22 (Exploratory laparotomy, lysis of adhesions, subtotal cholecystectomy with cholangiogram, gastrojejunostomy tube placement, pancreatic necrosectomy) Tracheostomy bilateral pleural effusions/pulm edema s/p Throacentesis on 10/03/2019 HTN Covid 19 negative. Acute on chronic anemia Fever - intermittent Ascites s/p paracentesis 08/02 & 08/23. C. parapsilosis JUANA. off HD. A large fluid collection in the pancreatic bed has slightly decreased in size, described below, the pancreas itself is difficult to visualize, which could be due to necrosis or obscuration of pancreatic parenchyma from the surrounding fluid collection.10/02 - 08/14 status post KAYLIN drain placement + C paropsilosis. s/p additional drains 08/25 Anemia Leucocytosis improving hypocalcemia Prediabetes HTN s/p trach Hyperglycemia severe protein-caloric malnutrition Moderate to large left pleural effusion with atelectasis and collapse of most of the left lower lobe, stable Plan: ICU monitoring TPN Aggressive wound care Trend labs Follow cultures Follow Hg, 6.9 Transfuse 1 unit PRBC meropenam, cipro, micafungin per ID PT/OT PRN trach shield ID, gen sx, GI, pulm following KAYLIN drain DVT GI prophylaxis xanax for anxiety prn Appreciate subspecialist input Long-term prognosis extremely guarded Comment Review of Relevant I have reviewed the following items kolby (where applicable) has been applied. Medications: Current Medications Medications (Trade) Dose Ordered Sig/Yvon Route PRN Reason Start Time Stop Time Status Last Admin Dose Admin Ceftazidime/ Avibactam 2.5 gm/ Sodium Chloride 100 ml @ 50 mls/hr Q8HRS IV 11/08/19 14:00 11/09/19 07:48 DC 11/09/19 05:32 Sodium Chloride 120 meq/Sodium Phosphate 10 mmol/ Potassium Chloride 30 meq/ Potassium Acetate 30 meq/Magnesium Sulfate 15 meq/ Multivitamins 10 ml/Chromium/ Copper/Manganese/ Seleni/Zn 1 ml/ Insulin Human Regular 15 unit/ Total Parenteral Nutrition/Amino Acids/Dextrose/ Fat Emulsion Intravenous 1,680 ml @ 70 mls/hr TPN CONT IV 11/08/19 22:00 11/09/19 21:59 11/08/19 22:11 Cefepime HCl (Maxipime) 2 gm Q12HR IVP 11/09/19 09:00 11/09/19 09:02 Justicifation of Admission Dx: Justifications for Admission: Justification of Admission Dx: Yes BEBO KIRBY III DO Nov 09, 2019 12:47
[2019-11-09] MEDS: fentaNYL PF VIAL 100 MCG/2 ML VIAL IV PRN ×3 (13:03→21:18)
[2019-11-09] MEDS: IV NORMAL SALINE 1000ML BAG 1,000 ML IV SCH (14:33)
--- NOTE | 2019-11-09 14:46 | NUR ---
SS following up with discharge planning. SS reviewed pt chart and discussed with pt RN. WBC improving. Pt on IV Micafungin, Daptomycin, and Cefepime. Pt on TPN. Pt has chest tube and G tube. Pt has two KAYLIN drains and one Mook drain. Pt now on room air. Per RN. Pt received one unit of blood today. [facility] reported that they are still working on making contact with pt's daughters to discuss disability application. SS will continue to follow for discharge planning.
--- NOTE | 2019-11-09 16:40 | NUR ---
Wound Care Incisional wound vac changed over the midline abdomen, parrish drain in place with scant drainage at distal opening of incision. Parrish removed, per Dr. Servin's order, pt tolerated well. Incision line well approximated and mostly epithelialized, other than a small area of separation approx 0.8 x 0.3 x 0.3 cm, surrounding skin appears epithelialized, photo in chart. Periwound draped, contact layer placed over incision line with silver foam at -125 mmHg continuous suction. All drain dressings removed, cleaned with chloroprep and new split gauze sponges reapplied and taped, pt tolerated dressing changes well. RLQ has a small area of skin erosion from a previous drain site, wound cleaned, measured, photographed and redressed with Aquacel AG and gauze. WC will continue to follow for vac management.
--- NOTE | 2019-11-09 17:14 | NUR ---
This RN assumed care of pt at 1700. Report received from REY Ruvalcaba. Pt transferred from chair to bed and repositioned to R side. No complaints at this time. Will monitor pt.
--- NOTE | 2019-11-09 17:45 | NUR ---
Bag of NS @ 25 nonadministered by this RN, previous bag still infusing. Refer to EMAR for details.
[2019-11-09] MEDS: METOPROLOL TARTRATE 5 MG/5 ML VIAL. IVP PRN (18:35)
[2019-11-09] MEDS: ACETAMINOPHEN 650 MG SUPP.RECT. PR PRN (20:53)
[2019-11-09] MEDS ORDERED: DEXTROSE 70% IV SCH ×11 (22:00)
[2019-11-09] MEDS ORDERED: TOTAL PARENTERAL NUTRITION IV SCH ×11 (22:00)
[2019-11-09] MEDS ORDERED: AMINO ACID IV SCH ×11 (22:00)
[2019-11-09] MEDS ORDERED: [UNRECOGNIZED DRUG - OTHER] IV SCH ×11 (22:00)
[2019-11-10] VITALS: BP 109/62
[2019-11-10] MEDS: IPRATRPIUM/ALBUTEROL 0.5/2.5MG 3 ML NEBU. NEB SCH ×6 (01:39→19:49)
[2019-11-10] MEDS: INSULIN LISPRO 300 UNITS/3 ML VIAL. SQ SCH ×4 (01:39→18:14)
[2019-11-10 04:00] VITALS: BP 122/66
[2019-11-10] MEDS: fentaNYL PF VIAL 100 MCG/2 ML VIAL IV PRN ×3 (05:57→22:32)
[2019-11-10 06:24] LABS: CALCIUM 9.7 mg/dL (8.5-10.1); CREATININE 0.5 mg/dL (0.6-1.0); GFR 131.1; MAGNESIUM 1.9 mg/dL (1.8-2.4); PHOSPHORUS 4.1 mg/dL (2.6-4.7); POTASSIUM 4.4 mmol/L (3.5-5.1)
--- NOTE | 2019-11-10 07:32 | PDOC ---
Infectious Disease Note Subjective: Subjective Pt resting quietly, arousable Febrile again at 101 TPN Vital Signs: Vital Signs Vital Signs Date Time Temp Pulse Resp B/P (MAP) Pulse Ox O2 Delivery O2 Flow Rate FiO2 11/10/19 04:00 98.5 118 30 122/66 (84) 100 Nasal Cannula 2.0 98.5 Physical Exam: PHYSICAL EXAM GENERAL:lying in bed HEENT: Pupils equal, oral cavity dry. NGT out NECK: Tracheostomy LUNGS: Diminished aeration bases, CT on left HEART: S1, S2, regular, tachy 110s ABDOMEN: Distended, bowel sounds hypoactive, soft, goyal x 2, 3 KAYLIN drains, G-J tube : Lind in place EXTREMITIES: Trace generalized edema, no cyanosis. RADHA hose bilaterally, SKIN: warm touch. No signs of rash. NEURO: arousable LUE-PICC without signs of complications Medications: Inpatient Meds: Current Medications Medications (Trade) Dose Ordered Sig/Yvon Start Time Stop Time Status Last Admin Dose Admin Acetaminophen (Tylenol Supp) 650 mg PRN Q6HRS PRN 07/12/19 10:30 11/09/19 20:53 650 MG Acetaminophen (Tylenol) 650 mg PRN Q6HRS PRN 07/09/19 03:36 08/31/19 10:25 DC 08/04/19 19:56 650 MG Acetylcysteine (Mucomyst 20% Resp Treatment) 600 mg RTBID 10/15/19 12:00 11/09/19 20:00 600 MG Albumin Human 500 ml @ 125 mls/hr PRN Q1HR PRN 10/18/19 15:45 Albuterol Sulfate (Ventolin Neb Soln) 2.5 mg 1X ONCE 07/05/19 22:30 07/05/19 22:31 DC 07/06/19 00:56 2.5 MG Albuterol/ Ipratropium (Duoneb) 3 ml Q4HRS 10/01/19 08:00 11/10/19 03:24 3 ML Alprazolam (Xanax) 0.5 mg PRN TID PRN 11/04/19 08:00 11/09/19 18:35 0.5 MG Alteplase, Recombinant (Cathflo For Central Catheter Clearance) 1 mg 1X ONCE 11/08/19 12:00 11/08/19 12:01 DC 11/08/19 12:17 1 MG Alteplase, Recombinant 4 mg/ Sodium Chloride 20 ml @ 20 mls/hr 1X ONCE 10/05/19 10:00 10/05/19 10:59 DC 10/05/19 10:09 20 MLS/HR Amino Acids/ Glycerin/ Electrolytes 1,000 ml @ 75 mls/hr [id number] 08/08/19 21:15 UNV Artificial Tears (Artificial Tears) 1 drop PRN Q15MIN PRN 08/17/19 05:30 10/11/19 21:17 1 DROP Atenolol (Tenormin) 100 mg DAILY 07/05/19 09:00 07/04/19 20:08 DC Atropine Sulfate (ATROPINE 0.5mg SYRINGE) 0.5 mg PRN Q5MIN PRN 07/21/19 08:15 Barium Sulfate (Varibar Thin Liquid Apple) 148 gm 1X ONCE 09/13/19 11:45 09/13/19 11:49 DC Benzocaine (Hurricaine One) 1 spray 1X ONCE 07/08/19 14:30 07/08/19 14:31 DC 07/08/19 16:38 1 SPRAY Bisacodyl (Dulcolax Supp) 10 mg STK-MED ONCE 08/15/19 10:59 08/15/19 10:59 DC Bumetanide (Bumex) 2 mg DAILY 08/26/19 10:00 09/05/19 17:15 DC 09/05/19 08:07 2 MG Bupivacaine HCl/ Epinephrine Bitart (Sensorcain-Epi 0.5%-1:[id number] Mpf) 30 ml STK-MED ONCE 10/18/19 08:34 10/18/19 08:35 DC Calcium Carbonate/ Glycine (Tums) 500 mg PRN AFTMEALHC PRN 07/06/19 17:45 08/31/19 10:25 DC Calcium Chloride 1000 mg/Sodium Chloride 110 ml @ 220 mls/hr 1X ONCE 07/05/19 22:30 07/05/19 22:59 DC 07/05/19 22:11 220 MLS/HR Calcium Chloride 3000 mg/Sodium Chloride 1,030 ml @ 50 mls/hr [id number] 07/07/19 08:00 07/09/19 15:23 DC 07/09/19 02:17 50 MLS/HR Calcium Gluconate (Calcium Gluconate) 2,000 mg 1X ONCE 07/07/19 02:15 07/07/19 02:16 DC 07/07/19 02:19 2,000 MG Calcium Gluconate 1000 mg/Sodium Chloride 110 ml @ 220 mls/hr 1X ONCE 07/06/19 03:30 07/06/19 03:59 DC 07/06/19 03:21 220 MLS/HR Calcium Gluconate 2000 mg/Sodium Chloride 120 ml @ 220 mls/hr 1X ONCE 07/06/19 07:30 07/06/19 08:02 DC 07/06/19 09:05 220 MLS/HR Cefepime HCl (Maxipime) 2 gm Q12HR 11/09/19 09:00 11/09/19 20:53 2 GM Ceftazidime/ Avibactam 2.5 gm/ Sodium Chloride 100 ml @ 50 mls/hr Q8HRS 11/08/19 14:00 11/09/19 07:48 DC 11/09/19 05:32 50 MLS/HR Cellulose (Surgicel Fibrillar 1x2) 1 each STK-MED ONCE 07/25/19 11:00 07/25/19 11:01 DC Cellulose (Surgicel Hemostat 2x14) 1 each STK-MED ONCE 08/15/19 10:58 08/15/19 10:59 DC Cellulose (Surgicel Hemostat 4x8) 1 each STK-MED ONCE 08/15/19 10:58 08/15/19 10:59 DC Chlorhexidine Gluconate (Peridex) 15 ml BID 10/01/19 09:00 10/01/19 07:58 DC Ciprofloxacin/ Dextrose 200 ml @ 200 mls/hr Q12HR 10/30/19 10:00 11/08/19 08:20 DC 11/07/19 21:02 200 MLS/HR Cyclobenzaprine HCl (Flexeril) 10 mg PRN Q6HRS PRN 08/18/19 10:45 10/28/19 19:12 10 MG Daptomycin 410 mg/ Sodium Chloride 50 ml @ 100 mls/hr Q24H 09/25/19 14:00 09/28/19 08:30 DC 09/27/19 13:33 100 MLS/HR Daptomycin 430 mg/ Sodium Chloride 50 ml @ 100 mls/hr Q24H 08/13/19 13:00 08/18/19 20:58 DC 08/18/19 13:00 100 MLS/HR Daptomycin 450 mg/ Sodium Chloride 50 ml @ 100 mls/hr Q24H 09/04/19 09:00 09/08/19 08:30 DC 09/07/19 09:25 100 MLS/HR Daptomycin 485 mg/ Sodium Chloride 50 ml @ 100 mls/hr Q24H 08/22/19 11:00 08/30/19 07:44 DC 08/29/19 13:10 100 MLS/HR Daptomycin 500 mg/ Sodium Chloride 50 ml @ 100 mls/hr Q24H 11/02/19 09:00 11/09/19 09:04 100 MLS/HR Desflurane (Suprane) 90 ml STK-MED ONCE 10/18/19 10:18 10/18/19 10:19 DC Dexamethasone Sodium Phosphate (Decadron) 4 mg STK-MED ONCE 08/15/19 10:56 08/15/19 10:57 DC Dexmedetomidine HCl 400 mcg/ Sodium Chloride 100 ml @ 0 mls/hr CONT PRN 07/21/19 08:15 09/17/19 18:31 DC 09/17/19 12:57 8 MLS/HR Dextrose (Dextrose 50%-Water Syringe) 12.5 gm PRN Q15MIN PRN 07/04/19 09:30 Digoxin (Lanoxin) 125 mcg 1X ONCE 07/07/19 18:00 07/07/19 18:01 DC 07/07/19 17:10 125 MCG Diphenhydramine HCl (Benadryl) 25 mg 1X ONCE 11/03/19 19:00 11/03/19 19:01 DC 11/03/19 18:56 25 MG Duloxetine HCl (Cymbalta) 30 mg DAILY 08/28/19 14:00 08/31/19 10:25 DC 08/29/19 09:48 30 MG Enoxaparin Sodium (Lovenox 100mg Syringe) 100 mg Q12HR 08/09/19 21:00 UNV Enoxaparin Sodium (Lovenox 40mg Syringe) 40 mg Q24H 10/19/19 08:00 11/09/19 09:02 40 MG Ephedrine Sulfate (ePHEDrine PF IN SALINE SYRINGE) 50 mg STK-MED ONCE 10/18/19 14:45 10/18/19 14:45 DC Etomidate (Amidate) 8 mg 1X ONCE 07/11/19 08:30 07/11/19 08:31 DC 07/11/19 08:33 8 MG Fentanyl (Duragesic 12mcg/ Hr Patch) 1 patch Q3DAYS 10/28/19 09:00 11/09/19 09:00 1 PATCH Fentanyl (Duragesic 50mcg/ Hr Patch) 1 patch Q72H 09/22/19 21:00 10/01/19 12:00 DC 09/22/19 21:22 1 PATCH Fentanyl Citrate 30 ml @ 0 mls/hr CONT PRN 10/27/19 17:30 Fentanyl Citrate (Fentanyl 2ml Vial) 100 mcg STK-MED ONCE 10/18/19 07:44 10/18/19 07:44 DC Fentanyl Citrate (Fentanyl 5ml Vial) 250 mcg 1X ONCE 08/26/19 09:15 08/26/19 09:16 DC 08/26/19 09:30 50 MCG Flumazenil (Romazicon) 0.5 mg STK-MED ONCE 09/25/19 14:48 09/25/19 14:48 DC Fluoxetine HCl (PROzac) 20 mg QHS 09/22/19 21:00 11/09/19 20:53 20 MG Furosemide (Lasix) 40 mg 1X ONCE 10/12/19 15:30 10/12/19 15:33 DC 10/12/19 16:27 40 MG Haloperidol Lactate (Haldol Inj) 3 mg 1X ONCE 08/22/19 14:30 08/22/19 14:31 DC 08/22/19 14:37 3 MG Heparin Sodium (Porcine) (Hep Lock Adult) 500 unit STK-MED ONCE 07/26/19 09:29 07/26/19 09:30 DC Heparin Sodium (Porcine) (Heparin Sodium) 5,000 unit Q12HR 08/15/19 21:00 08/25/19 09:59 DC 08/24/19 20:57 5,000 UNIT Heparin Sodium (Porcine) 1000 unit/Sodium Chloride 1,001 ml @ 1,001 mls/hr 1X ONCE 10/18/19 06:00 10/18/19 06:59 DC Hydromorphone HCl (Dilaudid Standard UPPER LINING CEMENTER) 12 mg STK-MED ONCE 08/19/19 15:50 08/30/19 11:24 DC Hydromorphone HCl (Dilaudid) 1 mg PRN Q4HRS PRN 08/22/19 19:00 09/05/19 17:10 DC 09/05/19 06:25 1 MG Info (CONTRAST GIVEN -- Rx MONITORING) 1 each PRN DAILY PRN 11/08/19 11:45 11/10/19 11:44 Info (Icu Electrolyte Protocol) 1 ea CONT PRN PRN 07/17/19 13:15 Info (PHARMACY MONITORING -- do not chart) 1 each PRN DAILY PRN 08/12/19 15:45 09/13/19 14:14 DC Info (Tpn Per Pharmacy) 1 each PRN DAILY PRN 07/06/19 12:30 UNV Insulin Human Lispro (HumaLOG) 0-9 UNITS Q6HRS 07/04/19 09:30 11/07/19 14:42 4 UNITS Insulin Human Regular (HumuLIN R VIAL) 5 unit 1X ONCE 07/05/19 22:30 07/05/19 22:31 DC 07/05/19 22:14 5 UNIT Iohexol (Omnipaque 240 Mg/ml) 30 ml 1X ONCE 07/18/19 11:30 07/18/19 11:33 DC 07/18/19 11:30 30 ML Iohexol (Omnipaque 300 Mg/ml) 75 ml 1X ONCE 11/08/19 11:30 11/08/19 11:31 DC 11/08/19 11:30 75 ML Iohexol (Omnipaque 350 Mg/ml) 90 ml 1X ONCE 07/04/19 03:30 07/04/19 03:31 DC 07/04/19 03:25 90 ML Ketorolac Tromethamine (Toradol 30mg Vial) 30 mg 1X ONCE 07/04/19 03:00 07/04/19 03:01 DC 07/04/19 02:54 30 MG Lidocaine HCl (Buffered Lidocaine 1%) 3 ml 1X ONCE 10/03/19 13:00 10/03/19 13:01 DC 10/03/19 13:11 12 ML Lidocaine HCl (Glydo (Lidocaine) Jelly) 1 ramu 1X ONCE 07/08/19 14:30 07/08/19 14:31 DC 07/08/19 16:38 1 RAMU Lidocaine HCl (Lidocaine 1% 20ml Vial) 20 ml 1X ONCE 09/25/19 15:00 09/25/19 15:01 DC 09/25/19 15:30 20 ML Lidocaine HCl (Lidocaine Pf 2% Vial) 5 ml STK-MED ONCE 10/18/19 07:44 10/18/19 07:44 DC Lidocaine HCl (Xylocaine-Mpf 1% 2ml Vial) 2 ml PRN 1X PRN 08/15/19 07:00 08/16/19 06:59 DC Linezolid/Dextrose 300 ml @ 300 mls/hr Q12HR 09/04/19 09:00 09/07/19 08:11 DC 09/06/19 21:08 300 MLS/HR Lorazepam (Ativan Inj) 0.25 mg PRN Q4HRS PRN 09/21/19 07:30 11/07/19 03:28 0.25 MG Magnesium Sulfate 50 ml @ 25 mls/hr 1X ONCE 10/18/19 16:30 10/18/19 18:29 DC 10/18/19 17:02 25 MLS/HR Meropenem 1 gm/ Sodium Chloride 100 ml @ 200 mls/hr Q12HR 09/25/19 21:00 10/13/19 08:56 DC 10/13/19 08:27 200 MLS/HR Meropenem 500 mg/ Sodium Chloride 50 ml @ 100 mls/hr Q6HRS 10/16/19 18:00 11/08/19 08:23 DC 11/08/19 06:15 100 MLS/HR Methylprednisolone Sodium Succinate (SOLU-Medrol 125MG VIAL) 125 mg 1X ONCE 10/01/19 06:15 10/01/19 06:16 DC 10/01/19 06:26 125 MG Metoclopramide HCl (Reglan Vial) 10 mg PRN Q3HRS PRN 08/27/19 16:45 09/01/19 04:25 10 MG Metoprolol Tartrate (Lopressor Vial) 5 mg PRN Q6HRS PRN 09/28/19 09:00 11/09/19 18:35 5 MG Metronidazole 100 ml @ 100 mls/hr Q8HRS 08/02/19 10:00 08/09/19 08:10 DC 08/09/19 06:04 100 MLS/HR Micafungin Sodium 100 mg/Dextrose 100 ml @ 100 mls/hr Q24H 10/18/19 08:30 11/09/19 09:04 100 MLS/HR Midazolam HCl (Versed) 2 mg 1X ONCE 09/25/19 15:00 09/25/19 15:01 DC 09/25/19 15:28 1 MG Midazolam HCl 100 mg/Sodium Chloride 100 ml @ 1 mls/hr CONT PRN 10/18/19 14:45 10/21/19 18:48 10 MLS/HR Midazolam HCl 50 mg/Sodium Chloride 50 ml @ 0 mls/hr CONT PRN 07/11/19 08:15 07/16/19 15:59 DC 07/14/19 22:39 7 MLS/HR Morphine Sulfate (Morphine Sulfate) 1 mg PRN Q1HR PRN 10/18/19 14:45 Multi-Ingred Cream/Lotion/Oil/ Oint (Artificial Tears Eye Ointment) 1 ramu PRN Q1HR PRN 07/13/19 17:30 09/21/19 14:39 DC 08/01/19 08:19 1 RAMU Naloxone HCl (Narcan) 0.4 mg PRN Q2MIN PRN 10/18/19 14:45 Norepinephrine Bitartrate 8 mg/ Dextrose 258 ml @ 13.332 mls/ hr CONT PRN 09/25/19 06:30 10/20/19 09:09 1.6 MLS/HR Ondansetron HCl (Zofran) 4 mg STK-MED ONCE 10/18/19 13:33 10/18/19 13:33 DC Pantoprazole Sodium (PROTONIX VIAL for IV PUSH) 40 mg DAILYAC 07/04/19 11:30 11/09/19 09:01 40 MG Phenylephrine HCl (Brayden-Synephrine Inj) 10 mg STK-MED ONCE 10/18/19 13:33 10/18/19 13:33 DC Phenylephrine HCl (PHENYLEPHRINE in 0.9% NACL PF) 1 mg STK-MED ONCE 10/18/19 14:44 10/18/19 14:45 DC Piperacillin Sod/ Tazobactam Sod 3.375 gm/Sodium Chloride 50 ml @ 100 mls/hr Q6HRS 09/14/19 12:00 09/22/19 07:26 DC 09/22/19 06:10 100 MLS/HR Piperacillin Sod/ Tazobactam Sod 4.5 gm/Sodium Chloride 100 ml @ 200 mls/hr 1X ONCE 07/04/19 06:00 07/04/19 06:29 DC 07/04/19 05:44 200 MLS/HR Potassium Chloride 110 meq/ Magnesium Sulfate 20 meq/ Multivitamins 10 ml/Chromium/ Copper/Manganese/ Seleni/Zn 1 ml/ Insulin Human Regular 15 unit/ Total Parenteral Nutrition/Amino Acids/Dextrose/ Fat Emulsion Intravenous 1,800 ml @ 75 mls/hr TPN CONT 09/11/19 22:00 09/12/19 21:59 DC 09/11/19 22:48 75 MLS/HR Potassium Chloride 15 meq/ Bicarbonate Dialysis Soln w/ out KCl 5,007.5 ml @ 1,000 mls/ hr Q5H1M 07/17/19 20:00 07/21/19 13:08 DC 07/20/19 18:14 1,000 MLS/HR Potassium Chloride 20 meq/ Bicarbonate Dialysis Soln w/ out KCl 5,010 ml @ 1,000 mls/hr Q5H1M 07/13/19 16:00 07/17/19 19:59 DC 07/17/19 14:54 1,000 MLS/HR Potassium Chloride 40 meq/ Potassium Acetate 60 meq/Magnesium Sulfate 10 meq/ Multivitamins 10 ml/Chromium/ Copper/Manganese/ Seleni/Zn 1 ml/ Insulin Human Regular 20 unit/ Total Parenteral Nutrition/Amino Acids/Dextrose/ Fat Emulsion Intravenous 1,800 ml @ 75 mls/hr TPN CONT 09/22/19 22:00 09/23/19 21:59 DC 09/23/19 00:03 75 MLS/HR Potassium Chloride 70 meq/ Magnesium Sulfate 20 meq/ Multivitamins 10 ml/Chromium/ Copper/Manganese/ Seleni/Zn 1 ml/ Insulin Human Regular 15 unit/ Total Parenteral Nutrition/Amino Acids/Dextrose/ Fat Emulsion Intravenous 1,800 ml @ 75 mls/hr TPN CONT 09/16/19 22:00 09/17/19 21:59 DC 09/16/19 23:13 75 MLS/HR Potassium Chloride 75 meq/ Magnesium Sulfate 15 meq/ Multivitamins 10 ml/Chromium/ Copper/Manganese/ Seleni/Zn 0.5 ml/ Insulin Human Regular 15 unit/ Total Parenteral Nutrition/Amino Acids/Dextrose/ Fat Emulsion Intravenous 1,920 ml @ 80 mls/hr TPN CONT 08/27/19 22:00 08/28/19 21:59 DC 08/27/19 22:41 80 MLS/HR Potassium Chloride 75 meq/ Magnesium Sulfate 15 meq/Calcium Gluconate 8 meq/ Multivitamins 10 ml/Chromium/ Copper/Manganese/ Seleni/Zn 0.5 ml/ Insulin Human Regular 15 unit/ Total Parenteral Nutrition/Amino Acids/Dextrose/ Fat Emulsion Intravenous 1,920 ml @ 80 mls/hr TPN CONT 08/25/19 22:00 08/26/19 21:59 DC 08/25/19 22:28 80 MLS/HR Potassium Chloride 75 meq/ Magnesium Sulfate 15 meq/Calcium Gluconate 8 meq/ Multivitamins 10 ml/Chromium/ Copper/Manganese/ Seleni/Zn 0.5 ml/ Insulin Human Regular 20 unit/ Total Parenteral Nutrition/Amino Acids/Dextrose/ Fat Emulsion Intravenous 1,920 ml @ 80 mls/hr TPN CONT 08/24/19 22:00 08/25/19 21:59 DC 08/24/19 22:00 80 MLS/HR Potassium Chloride 75 meq/ Magnesium Sulfate 15 meq/Calcium Gluconate 8 meq/ Multivitamins 10 ml/Chromium/ Copper/Manganese/ Seleni/Zn 0.5 ml/ Insulin Human Regular 25 unit/ Total Parenteral Nutrition/Amino Acids/Dextrose/ Fat Emulsion Intravenous 1,920 ml @ 80 mls/hr TPN CONT 08/22/19 22:00 08/23/19 21:59 DC 08/22/19 23:08 80 MLS/HR Potassium Chloride 75 meq/ Magnesium Sulfate 20 meq/Calcium Gluconate 10 meq/ Multivitamins 10 ml/Chromium/ Copper/Manganese/ Seleni/Zn 0.5 ml/ Insulin Human Regular 25 unit/ Total Parenteral Nutrition/Amino Acids/Dextrose/ Fat Emulsion Intravenous 1,920 ml @ 80 mls/hr TPN CONT 08/21/19 22:00 08/22/19 21:59 DC 08/21/19 22:04 80 MLS/HR Potassium Chloride 75 meq/ Magnesium Sulfate 20 meq/Calcium Gluconate 10 meq/ Multivitamins 10 ml/Chromium/ Copper/Manganese/ Seleni/Zn 0.5 ml/ Insulin Human Regular 30 unit/ Total Parenteral Nutrition/Amino Acids/Dextrose/ Fat Emulsion Intravenous 1,920 ml @ 80 mls/hr TPN CONT 08/20/19 22:00 08/21/19 22:00 DC 08/20/19 21:51 80 MLS/HR Potassium Chloride 80 meq/ Magnesium Sulfate 20 meq/ Multivitamins 10 ml/Chromium/ Copper/Manganese/ Seleni/Zn 0.5 ml/ Insulin Human Regular 15 unit/ Total Parenteral Nutrition/Amino Acids/Dextrose/ Fat Emulsion Intravenous 1,920 ml @ 80 mls/hr TPN CONT 08/30/19 22:00 08/31/19 21:59 DC 08/30/19 21:40 80 MLS/HR Potassium Chloride 80 meq/ Magnesium Sulfate 20 meq/ Multivitamins 10 ml/Chromium/ Copper/Manganese/ Seleni/Zn 1 ml/ Insulin Human Regular 15 unit/ Total Parenteral Nutrition/Amino Acids/Dextrose/ Fat Emulsion Intravenous 1,800 ml @ 75 mls/hr TPN CONT 09/18/19 22:00 09/19/19 21:59 DC 09/18/19 21:54 75 MLS/HR Potassium Chloride 90 meq/ Magnesium Sulfate 20 meq/ Multivitamins 10 ml/Chromium/ Copper/Manganese/ Seleni/Zn 1 ml/ Insulin Human Regular 15 unit/ Total Parenteral Nutrition/Amino Acids/Dextrose/ Fat Emulsion Intravenous 1,800 ml @ 75 mls/hr TPN CONT 09/07/19 22:00 09/08/19 21:59 DC 09/07/19 22:28 75 MLS/HR Potassium Chloride 90 meq/ Magnesium Sulfate 20 meq/ Multivitamins 10 ml/Chromium/ Copper/Manganese/ Seleni/Zn 1 ml/ Insulin Human Regular 20 unit/ Total Parenteral Nutrition/Amino Acids/Dextrose/ Fat Emulsion Intravenous 1,800 ml @ 75 mls/hr TPN CONT 09/21/19 22:00 09/22/19 21:59 DC 09/21/19 23:13 75 MLS/HR Potassium Chloride/Water 100 ml @ 100 mls/hr Q1H 10/05/19 08:00 10/05/19 09:59 DC 10/05/19 09:12 100 MLS/HR Potassium Phosphate 20 mmol/ Sodium Chloride 106.6667 ml @ 51.667 m... 1X ONCE 07/13/19 13:00 07/13/19 15:03 DC 07/13/19 12:51 51.667 MLS/HR Potassium Acetate 30 meq/Magnesium Sulfate 14 meq/ Multivitamins 10 ml/Chromium/ Copper/Manganese/ Seleni/Zn 1 ml/ Insulin Human Regular 15 unit/ Sodium Chloride 20 meq/Potassium Chloride 30 meq/ Total Parenteral Nutrition/Amino Acids/Dextrose/ Fat Emulsion Intravenous 1,920 ml @ 80 mls/hr TPN CONT 10/11/19 22:00 10/12/19 21:59 DC 10/11/19 21:46 80 MLS/HR Potassium Acetate 30 meq/Magnesium Sulfate 20 meq/ Calcium Gluconate 10 meq/ Multivitamins 10 ml/Chromium/ Copper/Manganese/ Seleni/Zn 0.5 ml/ Insulin Human Regular 30 unit/ Potassium Chloride 30 meq/ Total Parenteral Nutrition/Amino Acids/Dextrose/ Fat Emulsion Intravenous 1,920 ml @ 80 mls/hr TPN CONT 08/19/19 22:00 08/20/19 21:59 DC 08/19/19 22:34 80 MLS/HR Potassium Acetate 40 meq/Magnesium Sulfate 10 meq/ Multivitamins 10 ml/Chromium/ Copper/Manganese/ Seleni/Zn 1 ml/ Insulin Human Regular 20 unit/ Total Parenteral Nutrition/Amino Acids/Dextrose/ Fat Emulsion Intravenous 1,920 ml @ 80 mls/hr TPN CONT 10/04/19 22:00 10/05/19 21:59 DC 10/04/19 21:32 80 MLS/HR Potassium Acetate 40 meq/Magnesium Sulfate 5 meq/ Multivitamins 10 ml/Chromium/ Copper/Manganese/ Seleni/Zn 1 ml/ Insulin Human Regular 30 unit/ Total Parenteral Nutrition/Amino Acids/Dextrose/ Fat Emulsion Intravenous 1,920 ml @ 80 mls/hr TPN CONT 10/03/19 22:00 10/04/19 19:34 DC 10/03/19 21:54 80 MLS/HR Potassium Acetate 55 meq/Magnesium Sulfate 20 meq/ Calcium Gluconate 10 meq/ Multivitamins 10 ml/Chromium/ Copper/Manganese/ Seleni/Zn 0.5 ml/ Insulin Human Regular 30 unit/ Total Parenteral Nutrition/Amino Acids/Dextrose/ Fat Emulsion Intravenous 1,920 ml @ 80 mls/hr TPN CONT 08/18/19 22:00 08/19/19 21:59 DC 08/19/19 01:00 80 MLS/HR Potassium Acetate 55 meq/Magnesium Sulfate 20 meq/ Calcium Gluconate 10 meq/ Multivitamins 10 ml/Chromium/ Copper/Manganese/ Seleni/Zn 0.5 ml/ Insulin Human Regular 35 unit/ Total Parenteral Nutrition/Amino Acids/Dextrose/ Fat Emulsion Intravenous 1,920 ml @ 80 mls/hr TPN CONT 08/16/19 22:00 08/17/19 21:59 DC 08/16/19 22:02 80 MLS/HR Potassium Acetate 60 meq/Magnesium Sulfate 10 meq/ Multivitamins 10 ml/Chromium/ Copper/Manganese/ Seleni/Zn 1 ml/ Insulin Human Regular 20 unit/ Total Parenteral Nutrition/Amino Acids/Dextrose/ Fat Emulsion Intravenous 1,920 ml @ 80 mls/hr TPN CONT 10/05/19 22:00 10/06/19 21:59 DC 10/05/19 21:55 80 MLS/HR Potassium Acetate 60 meq/Magnesium Sulfate 14 meq/ Multivitamins 10 ml/Chromium/ Copper/Manganese/ Seleni/Zn 1 ml/ Insulin Human Regular 15 unit/ Sodium Chloride 20 meq/Total Parenteral Nutrition/Amino Acids/Dextrose/ Fat Emulsion Intravenous 1,920 ml @ 80 mls/hr TPN CONT 10/10/19 22:00 10/11/19 21:59 DC 10/10/19 21:54 80 MLS/HR Potassium Acetate 60 meq/Magnesium Sulfate 14 meq/ Multivitamins 10 ml/Chromium/ Copper/Manganese/ Seleni/Zn 1 ml/ Insulin Human Regular 15 unit/ Total Parenteral Nutrition/Amino Acids/Dextrose/ Fat Emulsion Intravenous 1,920 ml @ 80 mls/hr TPN CONT 10/09/19 22:00 10/10/19 21:59 DC 10/09/19 22:22 80 MLS/HR Potassium Acetate 60 meq/Magnesium Sulfate 14 meq/ Multivitamins 10 ml/Chromium/ Copper/Manganese/ Seleni/Zn 1 ml/ Insulin Human Regular 20 unit/ Total Parenteral Nutrition/Amino Acids/Dextrose/ Fat Emulsion Intravenous 1,920 ml @ 80 mls/hr TPN CONT 10/06/19 22:00 10/07/19 21:59 DC 10/06/19 22:26 80 MLS/HR Potassium Acetate 60 meq/Magnesium Sulfate 5 meq/ Multivitamins 10 ml/Chromium/ Copper/Manganese/ Seleni/Zn 1 ml/ Insulin Human Regular 30 unit/ Total Parenteral Nutrition/Amino Acids/Dextrose/ Fat Emulsion Intravenous 1,920 ml @ 80 mls/hr TPN CONT 09/24/19 22:00 09/25/19 21:59 DC 09/24/19 21:54 80 MLS/HR Potassium Acetate 65 meq/Magnesium Sulfate 20 meq/ Calcium Gluconate 10 meq/ Multivitamins 10 ml/Chromium/ Copper/Manganese/ Seleni/Zn 0.5 ml/ Insulin Human Regular 30 unit/ Total Parenteral Nutrition/Amino Acids/Dextrose/ Fat Emulsion Intravenous 1,920 ml @ 80 mls/hr TPN CONT 08/17/19 22:00 08/18/19 21:59 DC 08/17/19 22:22 80 MLS/HR Potassium Acetate 80 meq/Magnesium Sulfate 5 meq/ Multivitamins 10 ml/Chromium/ Copper/Manganese/ Seleni/Zn 1 ml/ Insulin Human Regular 20 unit/ Total Parenteral Nutrition/Amino Acids/Dextrose/ Fat Emulsion Intravenous 1,920 ml @ 80 mls/hr TPN CONT 09/23/19 22:00 09/24/19 21:59 DC 09/23/19 21:59 80 MLS/HR Prochlorperazine Edisylate (Compazine) 5 mg PACU PRN PRN 08/15/19 07:00 08/16/19 06:59 DC Propofol (Diprivan) 200 mg STK-MED ONCE 10/18/19 07:44 10/18/19 07:44 DC Ringer's Solution 1,000 ml @ 30 mls/hr Q24H 08/15/19 07:00 08/15/19 18:59 DC Rocuronium Warren (Zemuron) 100 mg STK-MED ONCE 10/18/19 07:44 10/18/19 07:44 DC Saliva Substitute (Biotene Moisturizing Mouth) 2 spray PRN Q15MIN PRN 09/08/19 11:00 Sevoflurane (Ultane) 60 ml STK-MED ONCE 08/15/19 12:26 08/15/19 12:27 DC Sodium Bicarbonate 150 meq/Dextrose 1,150 ml @ 75 mls/hr 1X ONCE 10/18/19 16:30 10/19/19 07:49 DC 10/18/19 20:02 75 MLS/HR Sodium Bicarbonate 50 meq/Sodium Chloride 1,050 ml @ 75 mls/hr Q14H 07/06/19 07:30 07/11/19 10:28 DC 07/10/19 21:10 75 MLS/HR Sodium Acetate 50 meq/Potassium Acetate 55 meq/ Magnesium Sulfate 20 meq/Calcium Gluconate 10 meq/ Multivitamins 10 ml/Chromium/ Copper/Manganese/ Seleni/Zn 0.5 ml/ Insulin Human Regular 35 unit/ Total Parenteral Nutrition/Amino Acids/Dextrose/ Fat Emulsion Intravenous 1,800 ml @ 75 mls/hr TPN CONT 08/13/19 22:00 08/14/19 21:59 DC 08/13/19 22:03 75 MLS/HR Sodium Bicarbonate (Sodium Bicarb Adult 8.4% Syr) 100 meq 1X ONCE 10/18/19 16:30 10/18/19 16:31 DC 10/18/19 17:07 100 MEQ Sodium Chloride (Normal Saline Flush) 3 ml QSHIFT PRN 10/18/19 14:45 Sodium Chloride 80 meq/Potassium Chloride 30 meq/ Potassium Acetate 30 meq/Magnesium Sulfate 14 meq/ Multivitamins 10 ml/Chromium/ Copper/Manganese/ Seleni/Zn 1 ml/ Insulin Human Regular 15 unit/ Total Parenteral Nutrition/Amino Acids/Dextrose/ Fat Emulsion Intravenous 1,920 ml @ 80 mls/hr TPN CONT 10/19/19 22:00 10/20/19 21:59 DC 10/19/19 23:05 80 MLS/HR Sodium Chloride 90 meq/Calcium Gluconate 10 meq/ Multivitamins 10 ml/Chromium/ Copper/Manganese/ Seleni/Zn 0.5 ml/ Total Parenteral Nutrition/Amino Acids/Dextrose/ Fat Emulsion Intravenous 1,512 ml @ 63 mls/hr TPN CONT 07/06/19 22:00 07/07/19 21:59 DC 07/06/19 22:06 63 MLS/HR Sodium Chloride 90 meq/Calcium Gluconate 10 meq/ Multivitamins 10 ml/Chromium/ Copper/Manganese/ Seleni/Zn 1 ml/ Total Parenteral Nutrition/Amino Acids/Dextrose/ Fat Emulsion Intravenous 55.005 ml @ 2.292 mls/hr TPN CONT 07/06/19 22:00 07/06/19 12:33 DC Sodium Chloride 90 meq/Magnesium Sulfate 10 meq/ Calcium Gluconate 20 meq/ Multivitamins 10 ml/Chromium/ Copper/Manganese/ Seleni/Zn 0.5 ml/ Total Parenteral Nutrition/Amino Acids/Dextrose/ Fat Emulsion Intravenous 1,512 ml @ 63 mls/hr TPN CONT 07/07/19 22:00 07/08/19 21:59 DC 07/07/19 22:25 63 MLS/HR Sodium Chloride 90 meq/Magnesium Sulfate 12 meq/ Calcium Gluconate 15 meq/ Multivitamins 10 ml/Chromium/ Copper/Manganese/ Seleni/Zn 0.5 ml/ Insulin Human Regular 25 unit/ Total Parenteral Nutrition/Amino Acids/Dextrose/ Fat Emulsion Intravenous 1,400 ml @ 58.333 mls/ hr TPN CONT 07/27/19 22:00 07/28/19 21:59 DC 07/27/19 21:41 58.333 MLS/HR Sodium Chloride 90 meq/Potassium Chloride 15 meq/ Magnesium Sulfate 12 meq/Calcium Gluconate 15 meq/ Multivitamins 10 ml/Chromium/ Copper/Manganese/ Seleni/Zn 0.5 ml/ Insulin Human Regular 25 unit/ Total Parenteral Nutrition/Amino Acids/Dextrose/ Fat Emulsion Intravenous 1,400 ml @ 58.333 mls/ hr TPN CONT 07/26/19 22:00 07/27/19 21:59 DC 07/26/19 22:13 58.333 MLS/HR Sodium Chloride 90 meq/Potassium Chloride 15 meq/ Potassium Phosphate 10 mmol/ Magnesium Sulfate 8 meq/Calcium Gluconate 15 meq/ Multivitamins 10 ml/Chromium/ Copper/Manganese/ Seleni/Zn 0.5 ml/ Insulin Human Regular 25 unit/ Total Parenteral Nutrition/Amino Acids/Dextrose/ Fat Emulsion Intravenous 1,400 ml @ 58.333 mls/ hr TPN CONT 07/24/19 22:00 07/25/19 21:59 DC 07/24/19 21:20 58.333 MLS/HR Sodium Chloride 90 meq/Potassium Chloride 15 meq/ Potassium Phosphate 10 mmol/ Magnesium Sulfate 10 meq/Calcium Gluconate 20 meq/ Multivitamins 10 ml/Chromium/ Copper/Manganese/ Seleni/Zn 0.5 ml/ Total Parenteral Nutrition/Amino Acids/Dextrose/ Fat Emulsion Intravenous 1,400 ml @ 58.333 mls/ hr TPN CONT 07/11/19 22:00 07/12/19 21:59 DC 07/11/19 21:42 58.333 MLS/HR Sodium Chloride 90 meq/Potassium Chloride 15 meq/ Potassium Phosphate 10 mmol/ Magnesium Sulfate 12 meq/Calcium Gluconate 15 meq/ Multivitamins 10 ml/Chromium/ Copper/Manganese/ Seleni/Zn 0.5 ml/ Insulin Human Regular 25 unit/ Total Parenteral Nutrition/Amino Acids/Dextrose/ Fat Emulsion Intravenous 1,400 ml @ 58.333 mls/ hr TPN CONT 07/25/19 22:00 07/26/19 21:59 DC 07/25/19 22:24 58.333 MLS/HR Sodium Chloride 90 meq/Potassium Chloride 15 meq/ Potassium Phosphate 15 mmol/ Magnesium Sulfate 10 meq/Calcium Gluconate 15 meq/ Multivitamins 10 ml/Chromium/ Copper/Manganese/ Seleni/Zn 0.5 ml/ Total Parenteral Nutrition/Amino Acids/Dextrose/ Fat Emulsion Intravenous 1,400 ml @ 58.333 mls/ hr TPN CONT 07/12/19 22:00 07/13/19 21:59 DC 07/12/19 22:17 58.333 MLS/HR Sodium Chloride 90 meq/Potassium Chloride 15 meq/ Potassium Phosphate 15 mmol/ Magnesium Sulfate 10 meq/Calcium Gluconate 20 meq/ Multivitamins 10 ml/Chromium/ Copper/Manganese/ Seleni/Zn 0.5 ml/ Total Parenteral Nutrition/Amino Acids/Dextrose/ Fat Emulsion Intravenous 1,200 ml @ 50 mls/hr TPN CONT 07/10/19 22:00 07/10/19 14:17 DC Sodium Chloride 90 meq/Potassium Chloride 15 meq/ Potassium Phosphate 18 mmol/ Magnesium Sulfate 8 meq/Calcium Gluconate 15 meq/ Multivitamins 10 ml/Chromium/ Copper/Manganese/ Seleni/Zn 0.5 ml/ Insulin Human Regular 10 unit/ Total Parenteral Nutrition/Amino Acids/Dextrose/ Fat Emulsion Intravenous 1,400 ml @ 58.333 mls/ hr TPN CONT 07/15/19 22:00 07/16/19 21:59 DC 07/15/19 21:43 58.333 MLS/HR Sodium Chloride 90 meq/Potassium Chloride 15 meq/ Potassium Phosphate 18 mmol/ Magnesium Sulfate 8 meq/Calcium Gluconate 15 meq/ Multivitamins 10 ml/Chromium/ Copper/Manganese/ Seleni/Zn 0.5 ml/ Insulin Human Regular 15 unit/ Total Parenteral Nutrition/Amino Acids/Dextrose/ Fat Emulsion Intravenous 1,400 ml @ 58.333 mls/ hr TPN CONT 07/18/19 22:00 07/19/19 21:59 DC 07/18/19 21:47 58.333 MLS/HR Sodium Chloride 90 meq/Potassium Chloride 15 meq/ Potassium Phosphate 18 mmol/ Magnesium Sulfate 8 meq/Calcium Gluconate 15 meq/ Multivitamins 10 ml/Chromium/ Copper/Manganese/ Seleni/Zn 0.5 ml/ Insulin Human Regular 20 unit/ Total Parenteral Nutrition/Amino Acids/Dextrose/ Fat Emulsion Intravenous 1,400 ml @ 58.333 mls/ hr TPN CONT 07/21/19 22:00 07/22/19 21:59 DC 07/21/19 22:45 58.333 MLS/HR Sodium Chloride 90 meq/Potassium Chloride 15 meq/ Potassium Phosphate 18 mmol/ Magnesium Sulfate 8 meq/Calcium Gluconate 15 meq/ Multivitamins 10 ml/Chromium/ Copper/Manganese/ Seleni/Zn 0.5 ml/ Total Parenteral Nutrition/Amino Acids/Dextrose/ Fat Emulsion Intravenous 1,400 ml @ 58.333 mls/ hr TPN CONT 07/14/19 22:00 07/15/19 21:59 DC 07/14/19 22:00 58.333 MLS/HR Sodium Chloride 90 meq/Potassium Chloride 30 meq/ Potassium Acetate 30 meq/Magnesium Sulfate 15 meq/ Multivitamins 10 ml/Chromium/ Copper/Manganese/ Seleni/Zn 1 ml/ Insulin Human Regular 15 unit/ Total Parenteral Nutrition/Amino Acids/Dextrose/ Fat Emulsion Intravenous 1,680 ml @ 70 mls/hr TPN CONT 11/03/19 22:00 11/04/19 21:59 DC 11/03/19 22:06 70 MLS/HR Sodium Chloride 90 meq/Potassium Phosphate 15 mmol/ Magnesium Sulfate 12 meq/Calcium Gluconate 15 meq/ Multivitamins 10 ml/Chromium/ Copper/Manganese/ Seleni/Zn 0.5 ml/ Insulin Human Regular 30 unit/ Total Parenteral Nutrition/Amino Acids/Dextrose/ Fat Emulsion Intravenous 1,400 ml @ 58.333 mls/ hr TPN CONT 07/29/19 22:00 07/30/19 21:59 DC 07/29/19 21:49 58.333 MLS/HR Sodium Chloride 90 meq/Potassium Phosphate 15 mmol/ Magnesium Sulfate 12 meq/Calcium Gluconate 15 meq/ Multivitamins 10 ml/Chromium/ Copper/Manganese/ Seleni/Zn 0.5 ml/ Insulin Human Regular 40 unit/ Total Parenteral Nutrition/Amino Acids/Dextrose/ Fat Emulsion Intravenous 1,400 ml @ 58.333 mls/ hr TPN CONT 07/30/19 22:00 07/31/19 21:59 DC 07/30/19 21:21 58.333 MLS/HR Sodium Chloride 90 meq/Potassium Phosphate 19 mmol/ Magnesium Sulfate 12 meq/Calcium Gluconate 15 meq/ Multivitamins 10 ml/Chromium/ Copper/Manganese/ Seleni/Zn 0.5 ml/ Insulin Human Regular 40 unit/ Total Parenteral Nutrition/Amino Acids/Dextrose/ Fat Emulsion Intravenous 1,400 ml @ 58.333 mls/ hr TPN CONT 07/31/19 22:00 08/01/19 21:59 DC 07/31/19 21:54 58.333 MLS/HR Sodium Chloride 90 meq/Potassium Phosphate 5 mmol/ Magnesium Sulfate 12 meq/Calcium Gluconate 15 meq/ Multivitamins 10 ml/Chromium/ Copper/Manganese/ Seleni/Zn 0.5 ml/ Insulin Human Regular 30 unit/ Total Parenteral Nutrition/Amino Acids/Dextrose/ Fat Emulsion Intravenous 1,400 ml @ 58.333 mls/ hr TPN CONT 07/28/19 22:00 07/29/19 21:59 DC 07/28/19 22:08 58.333 MLS/HR Sodium Chloride 100 meq/Potassium Chloride 30 meq/ Potassium Acetate 30 meq/Magnesium Sulfate 12 meq/ Multivitamins 10 ml/Chromium/ Copper/Manganese/ Seleni/Zn 1 ml/ Insulin Human Regular 15 unit/ Total Parenteral Nutrition/Amino Acids/Dextrose/ Fat Emulsion Intravenous 1,680 ml @ 70 mls/hr TPN CONT 10/23/19 22:00 10/24/19 21:59 DC 10/23/19 21:23 70 MLS/HR Sodium Chloride 100 meq/Potassium Chloride 40 meq/ Magnesium Sulfate 15 meq/Calcium Gluconate 15 meq/ Multivitamins 10 ml/Chromium/ Copper/Manganese/ Seleni/Zn 0.5 ml/ Insulin Human Regular 35 unit/ Total Parenteral Nutrition/Amino Acids/Dextrose/ Fat Emulsion Intravenous 1,400 ml @ 58.333 mls/ hr TPN CONT 08/07/19 22:00 08/08/19 21:59 DC 08/07/19 22:46 58.333 MLS/HR Sodium Chloride 100 meq/Potassium Chloride 40 meq/ Magnesium Sulfate 20 meq/Calcium Gluconate 10 meq/ Multivitamins 10 ml/Chromium/ Copper/Manganese/ Seleni/Zn 0.5 ml/ Insulin Human Regular 35 unit/ Total Parenteral Nutrition/Amino Acids/Dextrose/ Fat Emulsion Intravenous 1,400 ml @ 58.333 mls/ hr TPN CONT 08/11/19 22:00 08/12/19 21:59 DC 08/12/19 00:06 58.333 MLS/HR Sodium Chloride 100 meq/Potassium Chloride 40 meq/ Magnesium Sulfate 20 meq/Calcium Gluconate 15 meq/ Multivitamins 10 ml/Chromium/ Copper/Manganese/ Seleni/Zn 0.5 ml/ Insulin Human Regular 35 unit/ Total Parenteral Nutrition/Amino Acids/Dextrose/ Fat Emulsion Intravenous 1,400 ml @ 58.333 mls/ hr TPN CONT 08/10/19 22:00 08/11/19 21:59 DC 08/10/19 22:27 58.333 MLS/HR Sodium Chloride 100 meq/Potassium Phosphate 10 mmol/ Magnesium Sulfate 12 meq/Calcium Gluconate 15 meq/ Multivitamins 10 ml/Chromium/ Copper/Manganese/ Seleni/Zn 0.5 ml/ Insulin Human Regular 35 unit/ Potassium Chloride 20 meq/ Total Parenteral Nutrition/Amino Acids/Dextrose/ Fat Emulsion Intravenous 1,400 ml @ 58.333 mls/ hr TPN CONT 08/04/19 22:00 08/05/19 21:59 DC 08/04/19 22:10 58.333 MLS/HR Sodium Chloride 100 meq/Potassium Phosphate 19 mmol/ Magnesium Sulfate 12 meq/Calcium Gluconate 15 meq/ Multivitamins 10 ml/Chromium/ Copper/Manganese/ Seleni/Zn 0.5 ml/ Insulin Human Regular 40 unit/ Potassium Chloride 20 meq/ Total Parenteral Nutrition/Amino Acids/Dextrose/ Fat Emulsion Intravenous 1,400 ml @ 58.333 mls/ hr TPN CONT 08/03/19 22:00 08/04/19 21:59 DC 08/03/19 21:20 58.333 MLS/HR Sodium Chloride 100 meq/Potassium Phosphate 5 mmol/ Magnesium Sulfate 12 meq/Calcium Gluconate 15 meq/ Multivitamins 10 ml/Chromium/ Copper/Manganese/ Seleni/Zn 0.5 ml/ Insulin Human Regular 35 unit/ Potassium Chloride 20 meq/ Total Parenteral Nutrition/Amino Acids/Dextrose/ Fat Emulsion Intravenous 1,400 ml @ 58.333 mls/ hr TPN CONT 08/05/19 22:00 08/06/19 21:59 DC 08/05/19 22:59 58.333 MLS/HR Sodium Chloride 110 meq/Potassium Chloride 30 meq/ Potassium Acetate 30 meq/Magnesium Sulfate 15 meq/ Multivitamins 10 ml/Chromium/ Copper/Manganese/ Seleni/Zn 1 ml/ Insulin Human Regular 15 unit/ Total Parenteral Nutrition/Amino Acids/Dextrose/ Fat Emulsion Intravenous 1,680 ml @ 70 mls/hr TPN CONT 11/05/19 22:00 11/06/19 21:59 DC 11/05/19 22:01 70 MLS/HR Sodium Chloride 110 meq/Sodium Phosphate 10 mmol/ Potassium Chloride 30 meq/ Potassium Acetate 30 meq/Magnesium Sulfate 15 meq/ Multivitamins 10 ml/Chromium/ Copper/Manganese/ Seleni/Zn 1 ml/ Insulin Human Regular 15 unit/ Total Parenteral Nutrition/Amino Acids/Dextrose/ Fat Emulsion Intravenous 1,680 ml @ 70 mls/hr TPN CONT 11/06/19 22:00 11/07/19 21:59 DC 11/06/19 22:03 70 MLS/HR Sodium Chloride 120 meq/Sodium Phosphate 10 mmol/ Potassium Chloride 30 meq/ Potassium Acetate 30 meq/Magnesium Sulfate 15 meq/ Multivitamins 10 ml/Chromium/ Copper/Manganese/ Seleni/Zn 1 ml/ Insulin Human Regular 15 unit/ Total Parenteral Nutrition/Amino Acids/Dextrose/ Fat Emulsion Intravenous 1,680 ml @ 70 mls/hr TPN CONT 11/09/19 22:00 11/10/19 21:59 11/09/19 21:25 70 MLS/HR Succinylcholine Chloride (Anectine) 120 mg 1X ONCE 07/11/19 08:30 07/11/19 08:31 DC 07/11/19 08:34 120 MG Vancomycin HCl (Vanco Per Pharmacy) 1 each PRN DAILY PRN 10/30/19 09:15 11/02/19 07:41 DC 11/01/19 02:46 1 EACH Vancomycin HCl (Vancomycin Random Level) 1 each 1X ONCE 11/01/19 01:00 11/01/19 01:01 DC 11/01/19 01:00 1 EACH Vancomycin HCl (Vancomycin Trough Level) 1 each 1X ONCE 11/02/19 09:30 11/02/19 09:31 Cancel Vancomycin HCl 1.5 gm/Sodium Chloride 500 ml @ 250 mls/hr Q12H 11/01/19 10:00 11/02/19 07:41 DC 11/01/19 22:07 250 MLS/HR Vancomycin HCl 2 gm/Sodium Chloride 500 ml @ 250 mls/hr 1X ONCE 10/30/19 10:00 10/30/19 11:59 DC 10/30/19 10:34 250 MLS/HR Vasopressin (Vasostrict) 20 unit STK-MED ONCE 10/18/19 12:23 10/18/19 12:23 DC Vasopressin 20 unit/Dextrose 101 ml @ 12 mls/hr CONT PRN 10/18/19 15:30 10/25/19 04:17 12 MLS/HR Vecuronium Warren (Norcuron Bolus) 6 mg PRN Q6HRS PRN 08/25/19 19:15 08/25/19 19:35 DC Labs: Lab Laboratory Tests Test 11/09/19 13:32 11/09/19 17:43 11/10/19 01:25 11/10/19 06:00 Glucose (Fingerstick) 144 mg/dL (70-99) 134 mg/dL (70-99) 132 mg/dL (70-99) Sodium Level 134 mmol/L (136-145) Potassium Level 4.4 mmol/L (3.5-5.1) Chloride Level 102 mmol/L (98-107) Carbon Dioxide Level 28 mmol/L (21-32) Anion Gap 4 (6-14) Blood Urea Nitrogen 14 mg/dL (7-20) Creatinine 0.5 mg/dL (0.6-1.0) Estimated GFR (Cockcroft-Gault) 131.1 Glucose Level 121 mg/dL (70-99) Calcium Level 9.7 mg/dL (8.5-10.1) Phosphorus Level 4.1 mg/dL (2.6-4.7) Magnesium Level 1.9 mg/dL (1.8-2.4) Triglycerides Level 181 mg/dL (0-150) Test 11/10/19 06:04 Glucose (Fingerstick) 117 mg/dL (70-99) Micro NEG ALEXANDRA 56 PSEUDOMONAS AERUGINOSA ANTIBIOTIC RESULT INTERPRETATION AMIKACIN <=16 S AZTREONAM >16 R CEFTAZIDIME >16 R CIPROFLOXACIN <=0.25 S CEFEPIME 16 I GENTAMICIN <=2 S LEVOFLOXACIN <=0.5 S CONTINUED ON NEXT PAGE RUN DATE: 09/28/19 [facility] *LIVE* PAGE 2 RUN TIME: 112 Specimen Inquiry SPEC: [id number] PATIENT: SCOTT CUELLAR [id number] (Continued) Procedure Result ANTIMICROBIAL SUSCEPTIBILITY Preliminary (continued) MEROPENEM <=1 S PIPERACILLIN/TAZOBACTAM 64 S TOBRAMYCIN <=2 S Unless otherwise specified, Testing Performed by: [address] [address] For Inquires, the Physician may contact the Microbiology department at [phone] Objective: Assessment: Patient with prolonged hospitalization more than 4 months Multiple medical problems Multiple surgical procedures S/P Exp. 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 parapsilosis & PSAE (I-merrem/ceftazidime/AZT/cefepime)) Leucocytosis -trending upward Fever Acute gallstone pancreatitis with persistent necrosis - 07/27. CT A/P Increased ascites. 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 status post KAYLIN drain placement; C. parapsilosis. s/p drain 08/23 + yeast & high amylase; s/p additional drain on 08/25. Drains removed. -08/23. fluid devyn parapsilosis fluid, amylase high - 09/23 showed multiple pseudocysts, slight larger on the right. s/p drains x 3, 09/24. + PSAE (MDRO-R Cefepime, Zosyn ALEXANDRA < 64) and yeast, -09/24 s/p drain replacement x 3; fluid cult PSAE (MDRO), yeast; treated -10/29 CT A/P shows smaller fluid collections. -722 CT abdomen and pelvis drains in place Ascites s/p paracentesis 08/02 & 08/23. C. parapsilosis Cholelithiasis with thickening of the gallbladder wall. JUANA, Hyperkalemia, Metabolic acidosis off dialysis Acute hypoxic resp failure. trach/vent. sputum 09/30 + PSAE (I merrem) ; sputum culture November 05+ for PSAE R Merrem, sensitive to cefepime Pleural effusion status post CTS left side Abdominal fluid culture MDRO Pseudomonas, yeast Sputum culture positive for MDRO Pseudomonas Generalized debility Plan: Plan of Care Restart Avycaz DC cefepime cont micafungin and dapto CK 11 on 11/05 repeat bc C. difficile PCR BC from 11/01 neg to date Monitor WBC/temp Wound care /drain management as directed Leucocytosis could be from not adequate drainage of intraabdo fluid/abscess ... Gen surgery following Contact isolation for CRE/MDRO D/w nursing Critically ill nursing home prognosis poor YUNIOR JOENS MD Nov 10, 2019 07:32
[2019-11-10 08:00] VITALS: BP 115/71
[2019-11-10] MEDS: ACETYLCYSTEINE 20% for RESP TX 600 MG/3 ML. NEB SCH ×2 (08:00→19:49)
[2019-11-10] MEDS: PANTOPRAZOLE IV PUSH 40 MG VIAL. IVP SCH (08:48)
[2019-11-10] MEDS: TPN PER PHARMACY MC PRN ×2 (08:53→11:42)
[2019-11-10] MEDS: DAPTOmycin (GENERIC) IVPB 500 MG in IV NORMAL SALINE 50ML 50 ML IV SCH (08:55)
--- NOTE | 2019-11-10 08:55 | NUR ---
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, 8 inches Weight: 84.3 kg Current diet: NPO LABS: Sodium: 134 Potassium: 4.4 Chloride: 102 Calcium: 9.7 Corrected Calcium: 11.70 Magnesium: 1.9 CO2: 28 SCr: 0.5 Glucose: 117-144 Albumin: 1.5 AST: 25 ALT: 37 TPN FORMULA: TPN TYPE: Central Continuous AMINO ACIDS: 95 gm DEXTROSE: 250 gm LIPIDS: 30 gm SODIUM CHLORIDE: 120 mEq SODIUM PHOSPHATE: 10 mmol POTASSIUM CHLORIDE: 30 mEq POTASSIUM ACETATE: 30 mEq MAGNESIUM: 15 mEq INSULIN: 15 units MULTIPLE VITAMIN: 10 ml TRACE ELEMENTS: 1 ml TPN PLAN: Continue same. R: Continue TPN Will monitor electrolytes, glucose, and tolerance to TPN. Raeann Mcdonnell RPH, 11/10/19 0855 Addendum: 11/10/19 at 1143 by Raeann Mcdonnell RPH PHA Dextrose increased to 275g per plumbing instructor rec's
[2019-11-10] MEDS: CEFTAZIDIME/AVIBACTAM 2.5 GM in IV NORMAL SALINE 250ML 250 ML IV SCH ×3 (08:57→22:00)
[2019-11-10 09:06] LABS: BASO # 0.1 x10^3/uL (0.0-0.2); BASO % 1 % (0-3); EOS # 0.6 x10^3/uL (0.0-0.7); EOS % 3 % (0-3); HEMOGLOBIN 8.2 g/dL (12.0-15.5); LYMPH # 1.2 x10^3/uL (1.0-4.8); LYMPH % 6 % (24-48); MEAN CORPUSCULAR HEMOGLOBIN 28 pg (25-35); MEAN CORPUSCULAR HGB CONC 33 g/dL (31-37); MEAN CORPUSCULAR VOLUME 86 fL (79-100); MONO # 0.9 x10^3/uL (0.0-1.1); MONO % 5 % (0-9); NEUT # 15.7 x10^3/uL (1.8-7.7); NEUT % 85 % (31-73); PLATELET COUNT 532 x10^3/uL (140-400); RED BLOOD COUNT 2.92 x10^6/uL (3.50-5.40); RED CELL DISTRIBUTION WIDTH 15.6 % (11.5-14.5); WHITE BLOOD COUNT 18.4 x10^3/uL (4.0-11.0)
[2019-11-10] MEDS: MICAFUNGIN 100 MG in IV DEXTROSE 5% 100ML 100 ML IV SCH (09:06)
--- NOTE | 2019-11-10 09:17 | PDOC ---
PULMONARY PROGRESS NOTES Subjective Patient awake alert following commands on room air Vitals Vital Signs Date Time Temp Pulse Resp B/P (MAP) Pulse Ox O2 Delivery O2 Flow Rate FiO2 11/10/19 08:43 100 Nasal Cannula 2.0 11/10/19 04:00 98.5 118 30 122/66 (84) 98.5 ROS: No Nausea, No Chest Pain, No Increase Cough General: Alert HEENT: Other (trach site ok) Lungs: Crackles, Other (l ct) Cardiovascular: S1, S2 Abdomen: Soft, Non-tender, Other (multiple KAYLIN drains ) Neuro Exam: Alert Extremities: Other (+1 BLE edema) Skin: Warm Labs Laboratory Tests Test 11/08/19 12:21 11/08/19 18:19 11/09/19 00:09 11/09/19 05:30 Glucose (Fingerstick) 143 mg/dL (70-99) 146 mg/dL (70-99) 147 mg/dL (70-99) White Blood Count 16.7 x10^3/uL (4.0-11.0) Red Blood Count 2.48 x10^6/uL (3.50-5.40) Hemoglobin 6.9 g/dL (12.0-15.5) Hematocrit 21.2 % (36.0-47.0) Mean Corpuscular Volume 86 fL (79-100) Mean Corpuscular Hemoglobin 28 pg (25-35) Mean Corpuscular Hemoglobin Concent 33 g/dL (31-37) Red Cell Distribution Width 15.9 % (11.5-14.5) Platelet Count 583 x10^3/uL (140-400) Neutrophils (%) (Auto) 84 % (31-73) Lymphocytes (%) (Auto) 8 % (24-48) Monocytes (%) (Auto) 5 % (0-9) Eosinophils (%) (Auto) 3 % (0-3) Basophils (%) (Auto) 0 % (0-3) Neutrophils # (Auto) 14.0 x10^3/uL (1.8-7.7) Lymphocytes # (Auto) 1.3 x10^3/uL (1.0-4.8) Monocytes # (Auto) 0.8 x10^3/uL (0.0-1.1) Eosinophils # (Auto) 0.6 x10^3/uL (0.0-0.7) Basophils # (Auto) 0.0 x10^3/uL (0.0-0.2) Test 11/09/19 05:31 11/09/19 13:32 11/09/19 17:43 11/10/19 01:25 Glucose (Fingerstick) 150 mg/dL (70-99) 144 mg/dL (70-99) 134 mg/dL (70-99) 132 mg/dL (70-99) Test 11/10/19 06:00 11/10/19 06:04 11/10/19 09:00 Sodium Level 134 mmol/L (136-145) Potassium Level 4.4 mmol/L (3.5-5.1) Chloride Level 102 mmol/L (98-107) Carbon Dioxide Level 28 mmol/L (21-32) Anion Gap 4 (6-14) Blood Urea Nitrogen 14 mg/dL (7-20) Creatinine 0.5 mg/dL (0.6-1.0) Estimated GFR (Cockcroft-Gault) 131.1 Glucose Level 121 mg/dL (70-99) Calcium Level 9.7 mg/dL (8.5-10.1) Phosphorus Level 4.1 mg/dL (2.6-4.7) Magnesium Level 1.9 mg/dL (1.8-2.4) Triglycerides Level 181 mg/dL (0-150) Glucose (Fingerstick) 117 mg/dL (70-99) White Blood Count 18.4 x10^3/uL (4.0-11.0) Red Blood Count 2.92 x10^6/uL (3.50-5.40) Hemoglobin 8.2 g/dL (12.0-15.5) Hematocrit 25.0 % (36.0-47.0) Mean Corpuscular Volume 86 fL (79-100) Mean Corpuscular Hemoglobin 28 pg (25-35) Mean Corpuscular Hemoglobin Concent 33 g/dL (31-37) Red Cell Distribution Width 15.6 % (11.5-14.5) Platelet Count 532 x10^3/uL (140-400) Neutrophils (%) (Auto) 85 % (31-73) Lymphocytes (%) (Auto) 6 % (24-48) Monocytes (%) (Auto) 5 % (0-9) Eosinophils (%) (Auto) 3 % (0-3) Basophils (%) (Auto) 1 % (0-3) Neutrophils # (Auto) 15.7 x10^3/uL (1.8-7.7) Lymphocytes # (Auto) 1.2 x10^3/uL (1.0-4.8) Monocytes # (Auto) 0.9 x10^3/uL (0.0-1.1) Eosinophils # (Auto) 0.6 x10^3/uL (0.0-0.7) Basophils # (Auto) 0.1 x10^3/uL (0.0-0.2) Laboratory Tests Test 11/09/19 13:32 11/09/19 17:43 11/10/19 01:25 11/10/19 06:00 Glucose (Fingerstick) 144 mg/dL (70-99) 134 mg/dL (70-99) 132 mg/dL (70-99) Sodium Level 134 mmol/L (136-145) Potassium Level 4.4 mmol/L (3.5-5.1) Chloride Level 102 mmol/L (98-107) Carbon Dioxide Level 28 mmol/L (21-32) Anion Gap 4 (6-14) Blood Urea Nitrogen 14 mg/dL (7-20) Creatinine 0.5 mg/dL (0.6-1.0) Estimated GFR (Cockcroft-Gault) 131.1 Glucose Level 121 mg/dL (70-99) Calcium Level 9.7 mg/dL (8.5-10.1) Phosphorus Level 4.1 mg/dL (2.6-4.7) Magnesium Level 1.9 mg/dL (1.8-2.4) Triglycerides Level 181 mg/dL (0-150) Test 11/10/19 06:04 11/10/19 09:00 Glucose (Fingerstick) 117 mg/dL (70-99) White Blood Count 18.4 x10^3/uL (4.0-11.0) Red Blood Count 2.92 x10^6/uL (3.50-5.40) Hemoglobin 8.2 g/dL (12.0-15.5) Hematocrit 25.0 % (36.0-47.0) Mean Corpuscular Volume 86 fL (79-100) Mean Corpuscular Hemoglobin 28 pg (25-35) Mean Corpuscular Hemoglobin Concent 33 g/dL (31-37) Red Cell Distribution Width 15.6 % (11.5-14.5) Platelet Count 532 x10^3/uL (140-400) Neutrophils (%) (Auto) 85 % (31-73) Lymphocytes (%) (Auto) 6 % (24-48) Monocytes (%) (Auto) 5 % (0-9) Eosinophils (%) (Auto) 3 % (0-3) Basophils (%) (Auto) 1 % (0-3) Neutrophils # (Auto) 15.7 x10^3/uL (1.8-7.7) Lymphocytes # (Auto) 1.2 x10^3/uL (1.0-4.8) Monocytes # (Auto) 0.9 x10^3/uL (0.0-1.1) Eosinophils # (Auto) 0.6 x10^3/uL (0.0-0.7) Basophils # (Auto) 0.1 x10^3/uL (0.0-0.2) Medications Active Scripts Medications Dose Route/Sig Max Daily Dose Days Date Category Bisoprolol Fumarate 5 Mg Tablet 10 Mg PO DAILY 07/04/19 Reported Comments cxr 10/30, reviewed, b ll infilt effusion atelectasis ct reviewed 10/30/19, Decreased left-sided effusion after catheter placement. The right-sided effusion has increased as has atelectasis. There has been exchange or placement of multiple drainage tubes and a gastrojejunostomy tube. Both collections are smaller. No significant new abdominal fluid collection is seen. The jejunal component of the gastrojejunostomy tube appears to be looped in the proximal small bowel. ct abdomen /pelvis 09/23 1. Removal of the percutaneous pigtail drainage catheters since the prior exam. Sequela of pancreatitis with extensive pseudocysts again demonstrated, the right-sided collections are slightly larger since the prior exam, the left-sided collections are stable. See above. 2. Moderate to large left pleural effusion with atelectasis and collapse of most of the left lower lobe, stable. Small right pleural effusion is stable. 3. Gallstone. ct chest 6/15 reviewed GRAM NEG COCCOBACILLI:MANY SQUAMOUS EPI CELL:RARE PMN (WBCs):FEW Unless otherwise specified, Testing Performed by: [facility] [address] [place] [address] For Inquires, the Physician may contact the Microbiology department at [phone] RESPIRATORY CULTURE Final Final MANY GRAM NEGATIVE RODS on 10/03/19 at 1107 FINAL ID= [PSEUDOMONAS AERUGINOSA] MICRO CHARGES PSEUDOMONAS AERUGINOSA ANTIMICROBIAL SUSCEPTIBILITY Final Comment NEG ALEXANDRA 56 PSEUDOMONAS AERUGINOSA ANTIBIOTIC RESULT INTERPRETATION AMIKACIN <=16 S AZTREONAM <=4 S CEFTAZIDIME <=1 S CIPROFLOXACIN <=0.25 S CEFEPIME <=2 S CEFTAZIDIME/AVIBACTAM <=4 S GENTAMICIN <=2 S LEVOFLOXACIN <=0.5 S Impression . IMPRESSION: 1. Acute hypoxemic respiratory failure secondary to ARDS status post trach, developed anemia 09/24, blood drainage from RLQ abdomen drain site, and surrounding firmness / developed septic shock 09/24 from abdomen source, required levo / s/p 3 new drains 09/24 with brown color drainage, 2. Gallstone pancreatitis, now with ongoing bleeding from prior drain. Anemic. s/p Tx multiple units over several days 3. septic shock/sepsis, recurrent 09/24, source abdomen. new fever ? aspiration pneumonitis/pneumonia 4. Acute kidney injury-, Off HD--renal function decling. suspect JUANA on CKD due to hypotension , improved now 5. Acute gallstone pancreatitis. 6. Hypoalbuminemia. 7. Moderate persistent effusions, s/p left thora 08/29, reaccumulation of left effusion. O2 requirement not changed. 8. Fever- ,hypotension. suspect recurrent sepsis/ likely pancreatic source. Per ID, per surgery-- 9. Acute drop in hemoglobin 10. Covid 19 testing negative 11. Moderate to large ascites-S/P paracentisis 12.S/P paracentisis with 4 liters removed on 08/03/19 13. S/P IR drain placement on 08/26/2019, removal, re inserted 09/24 14. Depression/Anxiety 15., Fever, per ID 16. Status post chest tube placement, not much drainage 10/17 S/P Exploratory laparotomy, lysis of adhesions, subtotal cholecystectomy with cholangiogram, gastrojejunostomy tube placement, pancreatic necrosectomy leukocytosis- improving 11/09 fluid from the chest tube GRAM STAIN Final Final NO ORGANISMS SEEN. SQUAMOUS EPI CELL:NOT APPLICABLE PMN (WBCs):RARE Unless otherwise specified, Testing Performed by: [address] [address] For Inquires, the Physician may contact the Microbiology department at [phone] ANAEROBIC-AEROBIC CULTURE Preliminary Preliminary No Growth on 11/09/19 at 0957 Unless otherwise specified, Testing Performed by: [address] [address] For Inquires, the Physician may contact the Microbiology department at [phone] Antibiotics per ID, since 11/09 Restart Avycaz DC cefepime cont micafungin and dapto Plan . So far no growth from fluid from the chest tube will continue current support Transfuse as needed Antibiotics per ID changes made,Change Avycaz to cefepime cont micafungin and dapto Discussed with RN afebrile this morning Monitor H&H Trach shield, as tolerated, on room air Up to chair, pt/ot Follow culture Follow surgery input DVT GI prophylaxis f/u BC /resp cultures Continue TPN for nutrition support DVT/GI PPX HARMEET BEE MD Nov 10, 2019 09:17
--- NOTE | 2019-11-10 10:19 | PDOC ---
Objective: Objective: Tmax 101 Vital Signs: Vital Signs Date Time Temp Pulse Resp B/P (MAP) Pulse Ox O2 Delivery O2 Flow Rate FiO2 11/10/19 08:43 100 Nasal Cannula 2.0 11/10/19 08:00 98.6 118 28 115/71 (86) 98.6 Labs: Laboratory Tests Test 11/09/19 13:32 11/09/19 17:43 11/10/19 01:25 11/10/19 06:00 Glucose (Fingerstick) 144 mg/dL 134 mg/dL 132 mg/dL Sodium Level 134 mmol/L Potassium Level 4.4 mmol/L Chloride Level 102 mmol/L Carbon Dioxide Level 28 mmol/L Anion Gap 4 Blood Urea Nitrogen 14 mg/dL Creatinine 0.5 mg/dL Estimated GFR (Cockcroft-Gault) 131.1 Glucose Level 121 mg/dL Calcium Level 9.7 mg/dL Phosphorus Level 4.1 mg/dL Magnesium Level 1.9 mg/dL Triglycerides Level 181 mg/dL Test 11/10/19 06:04 11/10/19 09:00 Glucose (Fingerstick) 117 mg/dL White Blood Count 18.4 x10^3/uL Red Blood Count 2.92 x10^6/uL Hemoglobin 8.2 g/dL Hematocrit 25.0 % Mean Corpuscular Volume 86 fL Mean Corpuscular Hemoglobin 28 pg Mean Corpuscular Hemoglobin Concent 33 g/dL Red Cell Distribution Width 15.6 % Platelet Count 532 x10^3/uL Neutrophils (%) (Auto) 85 % Lymphocytes (%) (Auto) 6 % Monocytes (%) (Auto) 5 % Eosinophils (%) (Auto) 3 % Basophils (%) (Auto) 1 % Neutrophils # (Auto) 15.7 x10^3/uL Lymphocytes # (Auto) 1.2 x10^3/uL Monocytes # (Auto) 0.9 x10^3/uL Eosinophils # (Auto) 0.6 x10^3/uL Basophils # (Auto) 0.1 x10^3/uL Imaging: CT A/P 11/07 IMPRESSION: 1. Colonic wall thickening with findings suggesting diarrhea. Correlate for colitis. 2. Extensive retroperitoneal fluid collections persist. Percutaneous drains remain within the collections in both paracolic gutters. These communicate with additional pelvic and peripancreatic collections. 3. Small to moderate right pleural effusion. No left pleural fluid is detectable in this [id number] with a drain in place. Bibasilar atelectasis or infiltra te. PE: GEN: chronically ill, RT and nurse present LUNGS: NC HEART: tachycardic ABD: many drains NEURO/PSYCH: awake and alert, waves, shows me her nail slovenian A/P: Gallstone pancreatitis s/p necrosectomy -- Continue support. Justicifation of Admission Dx: Justifications for Admission: Justification of Admission Dx: Yes CYNDEE FALCON Nov 10, 2019 10:19
[2019-11-10] MEDS: ENOXAPARIN 40 MG/0.4 ML SYRINGE. SQ SCH (10:54)
[2019-11-10] MEDS: ALPRAZolam 0.5 MG TABLET PO PRN ×3 (11:49→22:31)
[2019-11-10] MEDS: ONDANSETRON PF 4 MG/2 ML VIAL. IV PRN ×2 (11:49→20:49)
[2019-11-10 12:00] VITALS: BP 145/90
[2019-11-10] MEDS: METOPROLOL TARTRATE 5 MG/5 ML VIAL. IVP PRN ×2 (12:30→21:19)
--- NOTE | 2019-11-10 13:31 | PDOC ---
[facility] PROGRESS NOTE Chief Complaint Chief Complaint Postop (Exploratory laparotomy, lysis of adhesions, subtotal cholecystectomy with cholangiogram, gastrojejunostomy tube placement, pancreatic necrosectomy) Acute hypoxic Respiratory failure required mechanical ventilation Tracheostomy bilateral pleural effusions/pulm edema s/p Throacentesis on 10/03/2019 Severe Acute gallstone pancreatitis (not a surgical candidate at this time) with necrosis Acute kidney failure now requiring dialysis Gallstones (Calculus of gallbladder with acute cholecystitis without obstruc tion) HTN Intractable pain Intractable nausea Covid 19 negative. Acute on chronic anemia EEG: No seizure activity Fever - intermittent ? Ileus with vomiting Abd distention - U/S and CT reviewed s/p 0.4 L of opaque, debris-containing ascites was removed 08/23 Acute pancreatitis with persistent necrosis Gallstone pancreatitis with necrosis. -CT A/P 09/23 showed multiple pseudocysts, slight larger on the right. s/p drains x 3, 09/24. + PSAE (MDRO-R Cefepime, Zosyn ALEXANDRA < 64) and yeast, -s/p drain 08/14. C. parapsilosis. s/p drain 08/23 + yeast & high amylase; s/p additional drain on 08/25. Drains removed. Ascites s/p paracentesis 08/02 & 08/23. C. parapsilosis JUANA. off HD. A large fluid collection in the pancreatic bed has slightly decreased in size, described below, the pancreas itself is difficult to visualize, which could be due to necrosis or obscuration of pancreatic parenchyma from the surrounding fluid collection.10/02 - 08/14 status post KAYLIN drain placement + C paropsilosis. s/p additional drains 08/25 Anemia - S/p PRBCs. Cholelithiasis with thickening of the gallbladder wall. Leucocytosis improving JUANA, hyperkalemia, Metabolic acidosis off dialysis hypocalcemia Prediabetes HTN s/p trach Hyperglycemia severe protein-caloric malnutrition Moderate to large left pleural effusion with atelectasis and collapse of most of the left lower lobe, stable History of Present Illness History of Present Illness 11/10/2019 Patient seen in and examined in the ICU She is still extremely critically ill Appears weak, frail, and pale Better color today with improved eye contact and expression Discussed with RN Chart reviewed 11/09/2019 Patient seen and examined in the ICU She is still extremely critically ill Appears extremely weak frail and pale Discussed with RN Chart reviewed 11/08/2019 Patient seen and examined in the ICU She is still extremely critically ill Appears extremely weak frail and pale Discussed with RN Chart reviewed Vitals/I&O Vitals/I&O: Vital Signs Date Time Temp Pulse Resp B/P (MAP) Pulse Ox O2 Delivery O2 Flow Rate FiO2 11/10/19 12:30 146 145/90 11/10/19 12:00 97.9 28 94 Room Air 97.9 11/10/19 08:43 2.0 I & O 11/09/19 11/09/19 11/10/19 15:00 23:00 07:00 Intake Total 100 ml Output Total 940 ml 860 ml 1060 ml Balance -840 ml -860 ml -1060 ml Physical Exam Physical Exam: GENERAL: sitting in chair, mild distress HEENT: Pupils equal, oral cavity dry. NGT out NECK: Tracheostomy LUNGS: Diminished aeration bases, CT on left HEART: S1, S2, regular, tachy 110s ABDOMEN: Distended, bowel sounds hypoactive, soft, goyal x 2, 3 KAYLIN drains, G-J tube : Lind in place EXTREMITIES: Trace generalized edema, no cyanosis. RADHA hose bilaterally, SKIN: warm touch. No signs of rash. LUE-PICC without signs of complications General: Alert, Cooperative, No acute distress Heart: Other (distant heart sounds, tachycardic) Lungs: Crackles, Other (l ct) Abdomen: Soft, No tenderness, Other (drains with drainage) Extremities: Other (Diffuse edema) Skin: No rashes, No significant lesion Labs Labs: Laboratory Tests Test 11/09/19 13:32 11/09/19 17:43 11/10/19 01:25 11/10/19 06:00 Glucose (Fingerstick) 144 mg/dL (70-99) 134 mg/dL (70-99) 132 mg/dL (70-99) Sodium Level 134 mmol/L (136-145) Potassium Level 4.4 mmol/L (3.5-5.1) Chloride Level 102 mmol/L (98-107) Carbon Dioxide Level 28 mmol/L (21-32) Anion Gap 4 (6-14) Blood Urea Nitrogen 14 mg/dL (7-20) Creatinine 0.5 mg/dL (0.6-1.0) Estimated GFR (Cockcroft-Gault) 131.1 Glucose Level 121 mg/dL (70-99) Calcium Level 9.7 mg/dL (8.5-10.1) Phosphorus Level 4.1 mg/dL (2.6-4.7) Magnesium Level 1.9 mg/dL (1.8-2.4) Triglycerides Level 181 mg/dL (0-150) Test 11/10/19 06:04 11/10/19 09:00 11/10/19 12:26 Glucose (Fingerstick) 117 mg/dL (70-99) 143 mg/dL (70-99) White Blood Count 18.4 x10^3/uL (4.0-11.0) Red Blood Count 2.92 x10^6/uL (3.50-5.40) Hemoglobin 8.2 g/dL (12.0-15.5) Hematocrit 25.0 % (36.0-47.0) Mean Corpuscular Volume 86 fL (79-100) Mean Corpuscular Hemoglobin 28 pg (25-35) Mean Corpuscular Hemoglobin Concent 33 g/dL (31-37) Red Cell Distribution Width 15.6 % (11.5-14.5) Platelet Count 532 x10^3/uL (140-400) Neutrophils (%) (Auto) 85 % (31-73) Lymphocytes (%) (Auto) 6 % (24-48) Monocytes (%) (Auto) 5 % (0-9) Eosinophils (%) (Auto) 3 % (0-3) Basophils (%) (Auto) 1 % (0-3) Neutrophils # (Auto) 15.7 x10^3/uL (1.8-7.7) Lymphocytes # (Auto) 1.2 x10^3/uL (1.0-4.8) Monocytes # (Auto) 0.9 x10^3/uL (0.0-1.1) Eosinophils # (Auto) 0.6 x10^3/uL (0.0-0.7) Basophils # (Auto) 0.1 x10^3/uL (0.0-0.2) Assessment and Plan Assessmemt and Plan Problems Medical Problems: (1) Acute pancreatitis Status: Acute (2) Cholelithiasis Status: Acute ASSESSMENT Postop (Exploratory laparotomy, lysis of adhesions, subtotal cholecystectomy with cholangiogram, gastrojejunostomy tube placement, pancreatic necrosectomy) Acute hypoxic Respiratory failure required mechanical ventilation Tracheostomy bilateral pleural effusions/pulm edema s/p Throacentesis on 10/03/2019 Severe Acute gallstone pancreatitis (not a surgical candidate at this time) with necrosis HTN Intractable pain Intractable nausea Covid 19 negative. Acute on chronic anemia EEG: No seizure activity Fever - intermittent Abd distention - U/S and CT reviewed s/p 0.4 L of opaque, debris-containing ascites was removed 08/23 Acute pancreatitis with persistent necrosis Gallstone pancreatitis with necrosis. -CT A/P 09/23 showed multiple pseudocysts, slight larger on the right. s/p drains x 3, 09/24. + PSAE (MDRO-R Cefepime, Zosyn ALEXANDRA < 64) and yeast, -s/p drain 08/14. C. parapsilosis. s/p drain 08/23 + yeast & high amylase; s/p additional drain on 08/25. Drains removed. Ascites s/p paracentesis 08/02 & 08/23. C. parapsilosis A large fluid collection in the pancreatic bed has slightly decreased in size, described below, the pancreas itself is difficult to visualize, which could be due to necrosis or obscuration of pancreatic parenchyma from the surrounding fluid collection.10/02 - 08/14 status post KAYLIN drain placement + C paropsilosis. s/p additional drains 08/25 Anemia - S/p PRBCs. Leucocytosis improving JUANA, hyperkalemia, Metabolic acidosis off dialysis hypocalcemia Prediabetes HTN s/p trach Hyperglycemia severe protein-caloric malnutrition Moderate to large left pleural effusion with atelectasis and collapse of most of the left lower lobe, stable PLAN ICU monitoring TPN Aggressive wound care Trend labs Follow cultures Follow Hg Meropenam, cipro, micafungin per ID PT/OT PRN trach shield ID, gen sx, GI, pulm following KAYLIN drain DVT GI prophylaxis Xanax for anxiety qid Appreciate subspecialist input Long-term prognosis extremely guarded Comment Review of Relevant I have reviewed the following items kolby (where applicable) has been applied. Medications: Current Medications Medications (Trade) Dose Ordered Sig/Yvon Route PRN Reason Start Time Stop Time Status Last Admin Dose Admin Sodium Chloride 120 meq/Sodium Phosphate 10 mmol/ Potassium Chloride 30 meq/ Potassium Acetate 30 meq/Magnesium Sulfate 15 meq/ Multivitamins 10 ml/Chromium/ Copper/Manganese/ Seleni/Zn 1 ml/ Insulin Human Regular 15 unit/ Total Parenteral Nutrition/Amino Acids/Dextrose/ Fat Emulsion Intravenous 1,680 ml @ 70 mls/hr TPN CONT IV 11/09/19 22:00 11/10/19 21:59 11/09/19 21:25 Ceftazidime/ Avibactam 2.5 gm/ Sodium Chloride 250 ml @ 125 mls/hr Q8HRS IV 11/10/19 08:00 11/10/19 08:57 Justicifation of Admission Dx: Justifications for Admission: Justification of Admission Dx: Yes BEBO KIRBY III DO Nov 10, 2019 13:31
[2019-11-10] MEDS: PROCHLORPERAZINE 10 MG/2 ML VIAL. IV PRN (13:45)
--- NOTE | 2019-11-10 14:13 | PDOC ---
SURGICAL PROGRESS NOTE Subjective in chair sleeping Vital Signs Vital Signs Date Time Temp Pulse Resp B/P (MAP) Pulse Ox O2 Delivery O2 Flow Rate FiO2 11/10/19 12:30 146 145/90 11/10/19 12:00 97.9 28 94 Room Air 97.9 11/10/19 08:43 2.0 I&O Intake and Output 11/10/19 07:00 Intake Total 100 ml Output Total 2860 ml Balance -2760 ml IV Total 100 ml Output Urine Total 1600 ml Gastric Drainage Total 320 ml Chest Tube Drainage Total 100 ml Drainage Total 840 ml PATIENT HAS A ROSARIO: Yes General: Cooperative, No acute distress Abdomen: Soft, Other (multiple drains in place) Labs Laboratory Tests Test 11/08/19 18:19 11/09/19 00:09 11/09/19 05:30 11/09/19 05:31 Glucose (Fingerstick) 146 mg/dL (70-99) 147 mg/dL (70-99) 150 mg/dL (70-99) White Blood Count 16.7 x10^3/uL (4.0-11.0) Red Blood Count 2.48 x10^6/uL (3.50-5.40) Hemoglobin 6.9 g/dL (12.0-15.5) Hematocrit 21.2 % (36.0-47.0) Mean Corpuscular Volume 86 fL (79-100) Mean Corpuscular Hemoglobin 28 pg (25-35) Mean Corpuscular Hemoglobin Concent 33 g/dL (31-37) Red Cell Distribution Width 15.9 % (11.5-14.5) Platelet Count 583 x10^3/uL (140-400) Neutrophils (%) (Auto) 84 % (31-73) Lymphocytes (%) (Auto) 8 % (24-48) Monocytes (%) (Auto) 5 % (0-9) Eosinophils (%) (Auto) 3 % (0-3) Basophils (%) (Auto) 0 % (0-3) Neutrophils # (Auto) 14.0 x10^3/uL (1.8-7.7) Lymphocytes # (Auto) 1.3 x10^3/uL (1.0-4.8) Monocytes # (Auto) 0.8 x10^3/uL (0.0-1.1) Eosinophils # (Auto) 0.6 x10^3/uL (0.0-0.7) Basophils # (Auto) 0.0 x10^3/uL (0.0-0.2) Test 11/09/19 13:32 11/09/19 17:43 11/10/19 01:25 11/10/19 06:00 Glucose (Fingerstick) 144 mg/dL (70-99) 134 mg/dL (70-99) 132 mg/dL (70-99) Sodium Level 134 mmol/L (136-145) Potassium Level 4.4 mmol/L (3.5-5.1) Chloride Level 102 mmol/L (98-107) Carbon Dioxide Level 28 mmol/L (21-32) Anion Gap 4 (6-14) Blood Urea Nitrogen 14 mg/dL (7-20) Creatinine 0.5 mg/dL (0.6-1.0) Estimated GFR (Cockcroft-Gault) 131.1 Glucose Level 121 mg/dL (70-99) Calcium Level 9.7 mg/dL (8.5-10.1) Phosphorus Level 4.1 mg/dL (2.6-4.7) Magnesium Level 1.9 mg/dL (1.8-2.4) Triglycerides Level 181 mg/dL (0-150) Test 11/10/19 06:04 11/10/19 09:00 11/10/19 12:26 Glucose (Fingerstick) 117 mg/dL (70-99) 143 mg/dL (70-99) White Blood Count 18.4 x10^3/uL (4.0-11.0) Red Blood Count 2.92 x10^6/uL (3.50-5.40) Hemoglobin 8.2 g/dL (12.0-15.5) Hematocrit 25.0 % (36.0-47.0) Mean Corpuscular Volume 86 fL (79-100) Mean Corpuscular Hemoglobin 28 pg (25-35) Mean Corpuscular Hemoglobin Concent 33 g/dL (31-37) Red Cell Distribution Width 15.6 % (11.5-14.5) Platelet Count 532 x10^3/uL (140-400) Neutrophils (%) (Auto) 85 % (31-73) Lymphocytes (%) (Auto) 6 % (24-48) Monocytes (%) (Auto) 5 % (0-9) Eosinophils (%) (Auto) 3 % (0-3) Basophils (%) (Auto) 1 % (0-3) Neutrophils # (Auto) 15.7 x10^3/uL (1.8-7.7) Lymphocytes # (Auto) 1.2 x10^3/uL (1.0-4.8) Monocytes # (Auto) 0.9 x10^3/uL (0.0-1.1) Eosinophils # (Auto) 0.6 x10^3/uL (0.0-0.7) Basophils # (Auto) 0.1 x10^3/uL (0.0-0.2) Laboratory Tests Test 11/09/19 17:43 11/10/19 01:25 11/10/19 06:00 11/10/19 06:04 Glucose (Fingerstick) 134 mg/dL (70-99) 132 mg/dL (70-99) 117 mg/dL (70-99) Sodium Level 134 mmol/L (136-145) Potassium Level 4.4 mmol/L (3.5-5.1) Chloride Level 102 mmol/L (98-107) Carbon Dioxide Level 28 mmol/L (21-32) Anion Gap 4 (6-14) Blood Urea Nitrogen 14 mg/dL (7-20) Creatinine 0.5 mg/dL (0.6-1.0) Estimated GFR (Cockcroft-Gault) 131.1 Glucose Level 121 mg/dL (70-99) Calcium Level 9.7 mg/dL (8.5-10.1) Phosphorus Level 4.1 mg/dL (2.6-4.7) Magnesium Level 1.9 mg/dL (1.8-2.4) Triglycerides Level 181 mg/dL (0-150) Test 11/10/19 09:00 11/10/19 12:26 White Blood Count 18.4 x10^3/uL (4.0-11.0) Red Blood Count 2.92 x10^6/uL (3.50-5.40) Hemoglobin 8.2 g/dL (12.0-15.5) Hematocrit 25.0 % (36.0-47.0) Mean Corpuscular Volume 86 fL (79-100) Mean Corpuscular Hemoglobin 28 pg (25-35) Mean Corpuscular Hemoglobin Concent 33 g/dL (31-37) Red Cell Distribution Width 15.6 % (11.5-14.5) Platelet Count 532 x10^3/uL (140-400) Neutrophils (%) (Auto) 85 % (31-73) Lymphocytes (%) (Auto) 6 % (24-48) Monocytes (%) (Auto) 5 % (0-9) Eosinophils (%) (Auto) 3 % (0-3) Basophils (%) (Auto) 1 % (0-3) Neutrophils # (Auto) 15.7 x10^3/uL (1.8-7.7) Lymphocytes # (Auto) 1.2 x10^3/uL (1.0-4.8) Monocytes # (Auto) 0.9 x10^3/uL (0.0-1.1) Eosinophils # (Auto) 0.6 x10^3/uL (0.0-0.7) Basophils # (Auto) 0.1 x10^3/uL (0.0-0.2) Glucose (Fingerstick) 143 mg/dL (70-99) Problem List Problems Medical Problems: (1) Acute pancreatitis Status: Acute (2) Cholelithiasis Status: Acute Assessment/Plan supportive care Justicifation of Admission Dx: Justifications for Admission: Justification of Admission Dx: Yes 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 [employer]ER Nov 10, 2019 14:13
[2019-11-10] MEDS: IV NORMAL SALINE 1000ML BAG 1,000 ML IV SCH (14:33)
--- NOTE | 2019-11-10 14:34 | NUR ---
SS following up with discharge planning. SS reviewed pt chart and discussed with pt RN. Pt wearing speaking valve today. Pt on TPN, IV Avycaz, IV Daptomycin, and IV Micafungin. Pt hemoglobin 8.2 now. Pt has KAYLIN drains x2 and Mook dran x1. Pt has chest tube and G tube. COVID19 negative. Pt currently on room air. SS will continue to follow for discharge planning.
[2019-11-10 16:00] VITALS: BP 126/73
[2019-11-10 20:00] VITALS: BP 141/97
[2019-11-10] MEDS: HYDROcodone/APAP 5/325MG 1 TAB TABLET PO PRN (20:49)
[2019-11-10] MEDS ORDERED: TOTAL PARENTERAL NUTRITION IV SCH ×11 (22:00)
[2019-11-10] MEDS ORDERED: DEXTROSE 70% IV SCH ×11 (22:00)
[2019-11-10] MEDS ORDERED: AMINO ACID IV SCH ×11 (22:00)
[2019-11-10] MEDS ORDERED: [UNRECOGNIZED DRUG - OTHER] IV SCH ×11 (22:00)
[2019-11-11] VITALS (7 sets, daily range): BP systolic 119–146; BP diastolic 63–94
[2019-11-11] MEDS: IPRATRPIUM/ALBUTEROL 0.5/2.5MG 3 ML NEBU. NEB SCH ×6 (01:20→20:32)
[2019-11-11] MEDS: INSULIN LISPRO 300 UNITS/3 ML VIAL. SQ SCH ×5 (06:00→23:07)
[2019-11-11] MEDS: CEFTAZIDIME/AVIBACTAM 2.5 GM in IV NORMAL SALINE 250ML 250 ML IV SCH ×3 (06:00→21:30)
[2019-11-11 06:50] LABS: BASO # 0.1 x10^3/uL (0.0-0.2); BASO % 1 % (0-3); EOS # 0.3 x10^3/uL (0.0-0.7); EOS % 2 % (0-3); HEMATOCRIT 24.3 % (36.0-47.0); HEMOGLOBIN 7.9 g/dL (12.0-15.5); LYMPH # 1.5 x10^3/uL (1.0-4.8); LYMPH % 9 % (24-48); MEAN CORPUSCULAR HEMOGLOBIN 30 pg (25-35); MEAN CORPUSCULAR HGB CONC 32 g/dL (31-37); MEAN CORPUSCULAR VOLUME 91 fL (79-100); MONO % 6 % (0-9); NEUT # 14.1 x10^3/uL (1.8-7.7); NEUT % 83 % (31-73); PLATELET COUNT 569 x10^3/uL (140-400); RED BLOOD COUNT 2.66 x10^6/uL (3.50-5.40); RED CELL DISTRIBUTION WIDTH 16.7 % (11.5-14.5); WHITE BLOOD COUNT 16.9 x10^3/uL (4.0-11.0)
[2019-11-11] MEDS: PANTOPRAZOLE IV PUSH 40 MG VIAL. IVP SCH (07:26)
[2019-11-11 07:58] LABS: ALBUMIN 1.1 g/dL (3.4-5.0); ALBUMIN/GLOBULIN RATIO 0.3 (1.0-1.7); CALCIUM 9.4 mg/dL (8.5-10.1); CREATININE 0.6 mg/dL (0.6-1.0); GFR 106.3; POTASSIUM 4.2 mmol/L (3.5-5.1); TOTAL BILIRUBIN 0.5 mg/dL (0.2-1.0); TOTAL PROTEIN 5.1 g/dL (6.4-8.2)
[2019-11-11] MEDS: ACETYLCYSTEINE 20% for RESP TX 600 MG/3 ML. NEB SCH ×2 (07:58→20:33)
[2019-11-11] MEDS: MICAFUNGIN 100 MG in IV DEXTROSE 5% 100ML 100 ML IV SCH (08:24)
[2019-11-11] MEDS: DAPTOmycin (GENERIC) IVPB 500 MG in IV NORMAL SALINE 50ML 50 ML IV SCH (08:25)
[2019-11-11] MEDS: ENOXAPARIN 40 MG/0.4 ML SYRINGE. SQ SCH (08:25)
--- NOTE | 2019-11-11 08:38 | PDOC ---
Infectious Disease Note Subjective: Subjective Pt awake No fevers last 24-hour TPN Vital Signs: Vital Signs Vital Signs Date Time Temp Pulse Resp B/P (MAP) Pulse Ox O2 Delivery O2 Flow Rate FiO2 11/11/19 08:01 97 Room Air 11/11/19 06:00 98.8 98.8 11/11/19 04:00 135 37 119/68 (85) 11/10/19 08:43 2.0 Physical Exam: PHYSICAL EXAM GENERAL: sitting in chair, mild distress HEENT: Pupils equal, oral cavity dry. NGT out NECK: Tracheostomy LUNGS: Diminished aeration bases, CT on left HEART: S1, S2, regular, tachy 110s ABDOMEN: Distended, bowel sounds hypoactive, soft, goyal x 2, 3 KAYLIN drains, G-J tube : Lind in place EXTREMITIES: Trace generalized edema, no cyanosis. RADHA hose bilaterally, SKIN: warm touch. No signs of rash. LUE-PICC without signs of complications Medications: Inpatient Meds: Current Medications Medications (Trade) Dose Ordered Sig/Yvon Start Time Stop Time Status Last Admin Dose Admin Acetaminophen (Tylenol Supp) 650 mg PRN Q6HRS PRN 07/12/19 10:30 11/09/19 20:53 650 MG Acetaminophen (Tylenol) 650 mg PRN Q6HRS PRN 07/09/19 03:36 08/31/19 10:25 DC 08/04/19 19:56 650 MG Acetaminophen/ Hydrocodone Bitart (Lortab 5/325) 1 tab PRN Q4HRS PRN 11/10/19 16:00 11/10/19 20:49 1 TAB Acetylcysteine (Mucomyst 20% Resp Treatment) 600 mg RTBID 10/15/19 12:00 11/11/19 07:58 600 MG Albumin Human 500 ml @ 125 mls/hr PRN Q1HR PRN 10/18/19 15:45 Albuterol Sulfate (Ventolin Neb Soln) 2.5 mg 1X ONCE 07/05/19 22:30 07/05/19 22:31 DC 07/06/19 00:56 2.5 MG Albuterol/ Ipratropium (Duoneb) 3 ml Q4HRS 10/01/19 08:00 11/11/19 07:58 3 ML Alprazolam (Xanax) 0.5 mg PRN QID PRN 11/10/19 16:00 11/10/19 22:31 0.5 MG Alteplase, Recombinant (Cathflo For Central Catheter Clearance) 1 mg 1X ONCE 11/08/19 12:00 11/08/19 12:01 DC 11/08/19 12:17 1 MG Alteplase, Recombinant 4 mg/ Sodium Chloride 20 ml @ 20 mls/hr 1X ONCE 10/05/19 10:00 10/05/19 10:59 DC 10/05/19 10:09 20 MLS/HR Amino Acids/ Glycerin/ Electrolytes 1,000 ml @ 75 mls/hr [id number] 08/08/19 21:15 UNV Artificial Tears (Artificial Tears) 1 drop PRN Q15MIN PRN 08/17/19 05:30 10/11/19 21:17 1 DROP Atenolol (Tenormin) 100 mg DAILY 07/05/19 09:00 07/04/19 20:08 DC Atropine Sulfate (ATROPINE 0.5mg SYRINGE) 0.5 mg PRN Q5MIN PRN 07/21/19 08:15 Barium Sulfate (Varibar Thin Liquid Apple) 148 gm 1X ONCE 09/13/19 11:45 09/13/19 11:49 DC Benzocaine (Hurricaine One) 1 spray 1X ONCE 07/08/19 14:30 07/08/19 14:31 DC 07/08/19 16:38 1 SPRAY Bisacodyl (Dulcolax Supp) 10 mg STK-MED ONCE 08/15/19 10:59 08/15/19 10:59 DC Bumetanide (Bumex) 2 mg DAILY 08/26/19 10:00 09/05/19 17:15 DC 09/05/19 08:07 2 MG Bupivacaine HCl/ Epinephrine Bitart (Sensorcain-Epi 0.5%-1:985620 Mpf) 30 ml STK-MED ONCE 10/18/19 08:34 10/18/19 08:35 DC Calcium Carbonate/ Glycine (Tums) 500 mg PRN [id number] PRN 07/06/19 17:45 08/31/19 10:25 DC Calcium Chloride 1000 mg/Sodium Chloride 110 ml @ 220 mls/hr 1X ONCE 07/05/19 22:30 07/05/19 22:59 DC 07/05/19 22:11 220 MLS/HR Calcium Chloride 3000 mg/Sodium Chloride 1,030 ml @ 50 mls/hr [id number] 07/07/19 08:00 07/09/19 15:23 DC 07/09/19 02:17 50 MLS/HR Calcium Gluconate (Calcium Gluconate) 2,000 mg 1X ONCE 07/07/19 02:15 07/07/19 02:16 DC 07/07/19 02:19 2,000 MG Calcium Gluconate 1000 mg/Sodium Chloride 110 ml @ 220 mls/hr 1X ONCE 07/06/19 03:30 07/06/19 03:59 DC 07/06/19 03:21 220 MLS/HR Calcium Gluconate 2000 mg/Sodium Chloride 120 ml @ 220 mls/hr 1X ONCE 07/06/19 07:30 07/06/19 08:02 DC 07/06/19 09:05 220 MLS/HR Cefepime HCl (Maxipime) 2 gm Q12HR 11/09/19 09:00 11/10/19 07:30 DC 11/09/19 20:53 2 GM Ceftazidime/ Avibactam 2.5 gm/ Sodium Chloride 250 ml @ 125 mls/hr Q8HRS 11/10/19 08:00 11/11/19 06:00 125 MLS/HR Cellulose (Surgicel Fibrillar 1x2) 1 each STK-MED ONCE 07/25/19 11:00 07/25/19 11:01 DC Cellulose (Surgicel Hemostat 2x14) 1 each STK-MED ONCE 08/15/19 10:58 08/15/19 10:59 DC Cellulose (Surgicel Hemostat 4x8) 1 each STK-MED ONCE 08/15/19 10:58 08/15/19 10:59 DC Chlorhexidine Gluconate (Peridex) 15 ml BID 10/01/19 09:00 10/01/19 07:58 DC Ciprofloxacin/ Dextrose 200 ml @ 200 mls/hr Q12HR 10/30/19 10:00 11/08/19 08:20 DC 11/07/19 21:02 200 MLS/HR Cyclobenzaprine HCl (Flexeril) 10 mg PRN Q6HRS PRN 4/30/20 10:45 10/28/19 19:12 10 MG Daptomycin 410 mg/ Sodium Chloride 50 ml @ 100 mls/hr Q24H 09/25/19 14:00 09/28/19 08:30 DC 09/27/19 13:33 100 MLS/HR Daptomycin 430 mg/ Sodium Chloride 50 ml @ 100 mls/hr Q24H 08/13/19 13:00 08/18/19 20:58 DC 08/18/19 13:00 100 MLS/HR Daptomycin 450 mg/ Sodium Chloride 50 ml @ 100 mls/hr Q24H 09/04/19 09:00 09/08/19 08:30 DC 09/07/19 09:25 100 MLS/HR Daptomycin 485 mg/ Sodium Chloride 50 ml @ 100 mls/hr Q24H 08/22/19 11:00 08/30/19 07:44 DC 08/29/19 13:10 100 MLS/HR Daptomycin 500 mg/ Sodium Chloride 50 ml @ 100 mls/hr Q24H 11/02/19 09:00 11/11/19 08:25 100 MLS/HR Desflurane (Suprane) 90 ml STK-MED ONCE 10/18/19 10:18 10/18/19 10:19 DC Dexamethasone Sodium Phosphate (Decadron) 4 mg STK-MED ONCE 08/15/19 10:56 08/15/19 10:57 DC Dexmedetomidine HCl 400 mcg/ Sodium Chloride 100 ml @ 0 mls/hr CONT PRN 07/21/19 08:15 09/17/19 18:31 DC 09/17/19 12:57 8 MLS/HR Dextrose (Dextrose 50%-Water Syringe) 12.5 gm PRN Q15MIN PRN 07/04/19 09:30 Digoxin (Lanoxin) 125 mcg 1X ONCE 07/07/19 18:00 07/07/19 18:01 DC 07/07/19 17:10 125 MCG Diphenhydramine HCl (Benadryl) 25 mg 1X ONCE 11/03/19 19:00 11/03/19 19:01 DC 11/03/19 18:56 25 MG Duloxetine HCl (Cymbalta) 30 mg DAILY 08/28/19 14:00 08/31/19 10:25 DC 08/29/19 09:48 30 MG Enoxaparin Sodium (Lovenox 100mg Syringe) 100 mg Q12HR 08/09/19 21:00 UNV Enoxaparin Sodium (Lovenox 40mg Syringe) 40 mg Q24H 10/19/19 08:00 11/11/19 08:25 40 MG Ephedrine Sulfate (ePHEDrine PF IN SALINE SYRINGE) 50 mg STK-MED ONCE 10/18/19 14:45 10/18/19 14:45 DC Etomidate (Amidate) 8 mg 1X ONCE 07/11/19 08:30 07/11/19 08:31 DC 07/11/19 08:33 8 MG Fentanyl (Duragesic 12mcg/ Hr Patch) 1 patch Q3DAYS 10/28/19 09:00 11/09/19 09:00 1 PATCH Fentanyl (Duragesic 50mcg/ Hr Patch) 1 patch Q72H 09/22/19 21:00 10/01/19 12:00 DC 09/22/19 21:22 1 PATCH Fentanyl Citrate 30 ml @ 0 mls/hr CONT PRN 10/27/19 17:30 Fentanyl Citrate (Fentanyl 2ml Vial) 100 mcg STK-MED ONCE 10/18/19 07:44 10/18/19 07:44 DC Fentanyl Citrate (Fentanyl 5ml Vial) 250 mcg 1X ONCE 08/26/19 09:15 08/26/19 09:16 DC 08/26/19 09:30 50 MCG Flumazenil (Romazicon) 0.5 mg STK-MED ONCE 09/25/19 14:48 09/25/19 14:48 DC Fluoxetine HCl (PROzac) 20 mg QHS 09/22/19 21:00 11/10/19 20:48 20 MG Furosemide (Lasix) 40 mg 1X ONCE 10/12/19 15:30 10/12/19 15:33 DC 10/12/19 16:27 40 MG Haloperidol Lactate (Haldol Inj) 3 mg 1X ONCE 08/22/19 14:30 08/22/19 14:31 DC 08/22/19 14:37 3 MG Heparin Sodium (Porcine) (Hep Lock Adult) 500 unit STK-MED ONCE 07/26/19 09:29 07/26/19 09:30 DC Heparin Sodium (Porcine) (Heparin Sodium) 5,000 unit Q12HR 08/15/19 21:00 08/25/19 09:59 DC 08/24/19 20:57 5,000 UNIT Heparin Sodium (Porcine) 1000 unit/Sodium Chloride 1,001 ml @ 1,001 mls/hr 1X ONCE 10/18/19 06:00 10/18/19 06:59 DC Hydromorphone HCl (Dilaudid Standard SHIPFITTER APPRENTICE) 12 mg STK-MED ONCE 08/19/19 15:50 08/30/19 11:24 DC Hydromorphone HCl (Dilaudid) 1 mg PRN Q4HRS PRN 08/22/19 19:00 09/05/19 17:10 DC 09/05/19 06:25 1 MG Info (CONTRAST GIVEN -- Rx MONITORING) 1 each PRN DAILY PRN 11/08/19 11:45 11/10/19 11:44 DC Info (Icu Electrolyte Protocol) 1 ea CONT PRN PRN 07/17/19 13:15 Info (PHARMACY MONITORING -- do not chart) 1 each PRN DAILY PRN 08/12/19 15:45 09/13/19 14:14 DC Info (Tpn Per Pharmacy) 1 each PRN DAILY PRN 07/06/19 12:30 UNV Insulin Human Lispro (HumaLOG) 0-9 UNITS Q6HRS 07/04/19 09:30 11/07/19 14:42 4 UNITS Insulin Human Regular (HumuLIN R VIAL) 5 unit 1X ONCE 07/05/19 22:30 07/05/19 22:31 DC 07/05/19 22:14 5 UNIT Iohexol (Omnipaque 240 Mg/ml) 30 ml 1X ONCE 07/18/19 11:30 07/18/19 11:33 DC 07/18/19 11:30 30 ML Iohexol (Omnipaque 300 Mg/ml) 75 ml 1X ONCE 11/08/19 11:30 11/08/19 11:31 DC 11/08/19 11:30 75 ML Iohexol (Omnipaque 350 Mg/ml) 90 ml 1X ONCE 07/04/19 03:30 07/04/19 03:31 DC 07/04/19 03:25 90 ML Ketorolac Tromethamine (Toradol 30mg Vial) 30 mg 1X ONCE 07/04/19 03:00 07/04/19 03:01 DC 07/04/19 02:54 30 MG Lidocaine HCl (Buffered Lidocaine 1%) 3 ml 1X ONCE 10/03/19 13:00 10/03/19 13:01 DC 10/03/19 13:11 12 ML Lidocaine HCl (Glydo (Lidocaine) Jelly) 1 ramu 1X ONCE 07/08/19 14:30 07/08/19 14:31 DC 07/08/19 16:38 1 RAMU Lidocaine HCl (Lidocaine 1% 20ml Vial) 20 ml 1X ONCE 09/25/19 15:00 09/25/19 15:01 DC 09/25/19 15:30 20 ML Lidocaine HCl (Lidocaine Pf 2% Vial) 5 ml STK-MED ONCE 10/18/19 07:44 10/18/19 07:44 DC Lidocaine HCl (Xylocaine-Mpf 1% 2ml Vial) 2 ml PRN 1X PRN 08/15/19 07:00 08/16/19 06:59 DC Linezolid/Dextrose 300 ml @ 300 mls/hr Q12HR 09/04/19 09:00 09/07/19 08:11 DC 09/06/19 21:08 300 MLS/HR Lorazepam (Ativan Inj) 0.25 mg PRN Q4HRS PRN 09/21/19 07:30 11/07/19 03:28 0.25 MG Magnesium Sulfate 50 ml @ 25 mls/hr 1X ONCE 10/18/19 16:30 10/18/19 18:29 DC 10/18/19 17:02 25 MLS/HR Meropenem 1 gm/ Sodium Chloride 100 ml @ 200 mls/hr Q12HR 09/25/19 21:00 10/13/19 08:56 DC 10/13/19 08:27 200 MLS/HR Meropenem 500 mg/ Sodium Chloride 50 ml @ 100 mls/hr Q6HRS 10/16/19 18:00 11/08/19 08:23 DC 11/08/19 06:15 100 MLS/HR Methylprednisolone Sodium Succinate (SOLU-Medrol 125MG VIAL) 125 mg 1X ONCE 10/01/19 06:15 10/01/19 06:16 DC 10/01/19 06:26 125 MG Metoclopramide HCl (Reglan Vial) 10 mg PRN Q3HRS PRN 08/27/19 16:45 09/01/19 04:25 10 MG Metoprolol Tartrate (Lopressor Vial) 5 mg PRN Q6HRS PRN 09/28/19 09:00 11/10/19 21:19 5 MG Metronidazole 100 ml @ 100 mls/hr Q8HRS 08/02/19 10:00 08/09/19 08:10 DC 08/09/19 06:04 100 MLS/HR Micafungin Sodium 100 mg/Dextrose 100 ml @ 100 mls/hr Q24H 10/18/19 08:30 11/11/19 08:24 100 MLS/HR Midazolam HCl (Versed) 2 mg 1X ONCE 09/25/19 15:00 09/25/19 15:01 DC 09/25/19 15:28 1 MG Midazolam HCl 100 mg/Sodium Chloride 100 ml @ 1 mls/hr CONT PRN 10/18/19 14:45 10/21/19 18:48 10 MLS/HR Midazolam HCl 50 mg/Sodium Chloride 50 ml @ 0 mls/hr CONT PRN 07/11/19 08:15 07/16/19 15:59 DC 07/14/19 22:39 7 MLS/HR Morphine Sulfate (Morphine Sulfate) 1 mg PRN Q1HR PRN 10/18/19 14:45 Multi-Ingred Cream/Lotion/Oil/ Oint (Artificial Tears Eye Ointment) 1 ramu PRN Q1HR PRN 07/13/19 17:30 09/21/19 14:39 DC 08/01/19 08:19 1 RAMU Naloxone HCl (Narcan) 0.4 mg PRN Q2MIN PRN 10/18/19 14:45 Norepinephrine Bitartrate 8 mg/ Dextrose 258 ml @ 13.332 mls/ hr CONT PRN 09/25/19 06:30 10/20/19 09:09 1.6 MLS/HR Ondansetron HCl (Zofran) 4 mg STK-MED ONCE 10/18/19 13:33 10/18/19 13:33 DC Pantoprazole Sodium (PROTONIX VIAL for IV PUSH) 40 mg DAILYAC 07/04/19 11:30 11/11/19 07:26 40 MG Phenylephrine HCl (Brayden-Synephrine Inj) 10 mg STK-MED ONCE 10/18/19 13:33 10/18/19 13:33 DC Phenylephrine HCl (PHENYLEPHRINE in 0.9% NACL PF) 1 mg STK-MED ONCE 10/18/19 14:44 10/18/19 14:45 DC Piperacillin Sod/ Tazobactam Sod 3.375 gm/Sodium Chloride 50 ml @ 100 mls/hr Q6HRS 09/14/19 12:00 09/22/19 07:26 DC 09/22/19 06:10 100 MLS/HR Piperacillin Sod/ Tazobactam Sod 4.5 gm/Sodium Chloride 100 ml @ 200 mls/hr 1X ONCE 07/04/19 06:00 07/04/19 06:29 DC 07/04/19 05:44 200 MLS/HR Potassium Chloride 110 meq/ Magnesium Sulfate 20 meq/ Multivitamins 10 ml/Chromium/ Copper/Manganese/ Seleni/Zn 1 ml/ Insulin Human Regular 15 unit/ Total Parenteral Nutrition/Amino Acids/Dextrose/ Fat Emulsion Intravenous 1,800 ml @ 75 mls/hr TPN CONT 09/11/19 22:00 09/12/19 21:59 DC 09/11/19 22:48 75 MLS/HR Potassium Chloride 15 meq/ Bicarbonate Dialysis Soln w/ out KCl 5,007.5 ml @ 1,000 mls/ hr Q5H1M 07/17/19 20:00 07/21/19 13:08 DC 07/20/19 18:14 1,000 MLS/HR Potassium Chloride 20 meq/ Bicarbonate Dialysis Soln w/ out KCl 5,010 ml @ 1,000 mls/hr Q5H1M 07/13/19 16:00 07/17/19 19:59 DC 07/17/19 14:54 1,000 MLS/HR Potassium Chloride 40 meq/ Potassium Acetate 60 meq/Magnesium Sulfate 10 meq/ Multivitamins 10 ml/Chromium/ Copper/Manganese/ Seleni/Zn 1 ml/ Insulin Human Regular 20 unit/ Total Parenteral Nutrition/Amino Acids/Dextrose/ Fat Emulsion Intravenous 1,800 ml @ 75 mls/hr TPN CONT 09/22/19 22:00 09/23/19 21:59 DC 09/23/19 00:03 75 MLS/HR Potassium Chloride 70 meq/ Magnesium Sulfate 20 meq/ Multivitamins 10 ml/Chromium/ Copper/Manganese/ Seleni/Zn 1 ml/ Insulin Human Regular 15 unit/ Total Parenteral Nutrition/Amino Acids/Dextrose/ Fat Emulsion Intravenous 1,800 ml @ 75 mls/hr TPN CONT 09/16/19 22:00 09/17/19 21:59 DC 09/16/19 23:13 75 MLS/HR Potassium Chloride 75 meq/ Magnesium Sulfate 15 meq/ Multivitamins 10 ml/Chromium/ Copper/Manganese/ Seleni/Zn 0.5 ml/ Insulin Human Regular 15 unit/ Total Parenteral Nutrition/Amino Acids/Dextrose/ Fat Emulsion Intravenous 1,920 ml @ 80 mls/hr TPN CONT 08/27/19 22:00 08/28/19 21:59 DC 08/27/19 22:41 80 MLS/HR Potassium Chloride 75 meq/ Magnesium Sulfate 15 meq/Calcium Gluconate 8 meq/ Multivitamins 10 ml/Chromium/ Copper/Manganese/ Seleni/Zn 0.5 ml/ Insulin Human Regular 15 unit/ Total Parenteral Nutrition/Amino Acids/Dextrose/ Fat Emulsion Intravenous 1,920 ml @ 80 mls/hr TPN CONT 08/25/19 22:00 08/26/19 21:59 DC 08/25/19 22:28 80 MLS/HR Potassium Chloride 75 meq/ Magnesium Sulfate 15 meq/Calcium Gluconate 8 meq/ Multivitamins 10 ml/Chromium/ Copper/Manganese/ Seleni/Zn 0.5 ml/ Insulin Human Regular 20 unit/ Total Parenteral Nutrition/Amino Acids/Dextrose/ Fat Emulsion Intravenous 1,920 ml @ 80 mls/hr TPN CONT 08/24/19 22:00 08/25/19 21:59 DC 08/24/19 22:00 80 MLS/HR Potassium Chloride 75 meq/ Magnesium Sulfate 15 meq/Calcium Gluconate 8 meq/ Multivitamins 10 ml/Chromium/ Copper/Manganese/ Seleni/Zn 0.5 ml/ Insulin Human Regular 25 unit/ Total Parenteral Nutrition/Amino Acids/Dextrose/ Fat Emulsion Intravenous 1,920 ml @ 80 mls/hr TPN CONT 08/22/19 22:00 08/23/19 21:59 DC 08/22/19 23:08 80 MLS/HR Potassium Chloride 75 meq/ Magnesium Sulfate 20 meq/Calcium Gluconate 10 meq/ Multivitamins 10 ml/Chromium/ Copper/Manganese/ Seleni/Zn 0.5 ml/ Insulin Human Regular 25 unit/ Total Parenteral Nutrition/Amino Acids/Dextrose/ Fat Emulsion Intravenous 1,920 ml @ 80 mls/hr TPN CONT 08/21/19 22:00 08/22/19 21:59 DC 08/21/19 22:04 80 MLS/HR Potassium Chloride 75 meq/ Magnesium Sulfate 20 meq/Calcium Gluconate 10 meq/ Multivitamins 10 ml/Chromium/ Copper/Manganese/ Seleni/Zn 0.5 ml/ Insulin Human Regular 30 unit/ Total Parenteral Nutrition/Amino Acids/Dextrose/ Fat Emulsion Intravenous 1,920 ml @ 80 mls/hr TPN CONT 08/20/19 22:00 08/21/19 22:00 DC 08/20/19 21:51 80 MLS/HR Potassium Chloride 80 meq/ Magnesium Sulfate 20 meq/ Multivitamins 10 ml/Chromium/ Copper/Manganese/ Seleni/Zn 0.5 ml/ Insulin Human Regular 15 unit/ Total Parenteral Nutrition/Amino Acids/Dextrose/ Fat Emulsion Intravenous 1,920 ml @ 80 mls/hr TPN CONT 08/30/19 22:00 08/31/19 21:59 DC 08/30/19 21:40 80 MLS/HR Potassium Chloride 80 meq/ Magnesium Sulfate 20 meq/ Multivitamins 10 ml/Chromium/ Copper/Manganese/ Seleni/Zn 1 ml/ Insulin Human Regular 15 unit/ Total Parenteral Nutrition/Amino Acids/Dextrose/ Fat Emulsion Intravenous 1,800 ml @ 75 mls/hr TPN CONT 09/18/19 22:00 09/19/19 21:59 DC 09/18/19 21:54 75 MLS/HR Potassium Chloride 90 meq/ Magnesium Sulfate 20 meq/ Multivitamins 10 ml/Chromium/ Copper/Manganese/ Seleni/Zn 1 ml/ Insulin Human Regular 15 unit/ Total Parenteral Nutrition/Amino Acids/Dextrose/ Fat Emulsion Intravenous 1,800 ml @ 75 mls/hr TPN CONT 09/07/19 22:00 09/08/19 21:59 DC 09/07/19 22:28 75 MLS/HR Potassium Chloride 90 meq/ Magnesium Sulfate 20 meq/ Multivitamins 10 ml/Chromium/ Copper/Manganese/ Seleni/Zn 1 ml/ Insulin Human Regular 20 unit/ Total Parenteral Nutrition/Amino Acids/Dextrose/ Fat Emulsion Intravenous 1,800 ml @ 75 mls/hr TPN CONT 09/21/19 22:00 09/22/19 21:59 DC 09/21/19 23:13 75 MLS/HR Potassium Chloride/Water 100 ml @ 100 mls/hr Q1H 10/05/19 08:00 10/05/19 09:59 DC 10/05/19 09:12 100 MLS/HR Potassium Phosphate 20 mmol/ Sodium Chloride 106.6667 ml @ 51.667 m... 1X ONCE 07/13/19 13:00 07/13/19 15:03 DC 07/13/19 12:51 51.667 MLS/HR Potassium Acetate 30 meq/Magnesium Sulfate 14 meq/ Multivitamins 10 ml/Chromium/ Copper/Manganese/ Seleni/Zn 1 ml/ Insulin Human Regular 15 unit/ Sodium Chloride 20 meq/Potassium Chloride 30 meq/ Total Parenteral Nutrition/Amino Acids/Dextrose/ Fat Emulsion Intravenous 1,920 ml @ 80 mls/hr TPN CONT 10/11/19 22:00 10/12/19 21:59 DC 10/11/19 21:46 80 MLS/HR Potassium Acetate 30 meq/Magnesium Sulfate 20 meq/ Calcium Gluconate 10 meq/ Multivitamins 10 ml/Chromium/ Copper/Manganese/ Seleni/Zn 0.5 ml/ Insulin Human Regular 30 unit/ Potassium Chloride 30 meq/ Total Parenteral Nutrition/Amino Acids/Dextrose/ Fat Emulsion Intravenous 1,920 ml @ 80 mls/hr TPN CONT 08/19/19 22:00 08/20/19 21:59 DC 08/19/19 22:34 80 MLS/HR Potassium Acetate 40 meq/Magnesium Sulfate 10 meq/ Multivitamins 10 ml/Chromium/ Copper/Manganese/ Seleni/Zn 1 ml/ Insulin Human Regular 20 unit/ Total Parenteral Nutrition/Amino Acids/Dextrose/ Fat Emulsion Intravenous 1,920 ml @ 80 mls/hr TPN CONT 10/04/19 22:00 10/05/19 21:59 DC 10/04/19 21:32 80 MLS/HR Potassium Acetate 40 meq/Magnesium Sulfate 5 meq/ Multivitamins 10 ml/Chromium/ Copper/Manganese/ Seleni/Zn 1 ml/ Insulin Human Regular 30 unit/ Total Parenteral Nutrition/Amino Acids/Dextrose/ Fat Emulsion Intravenous 1,920 ml @ 80 mls/hr TPN CONT 10/03/19 22:00 10/04/19 19:34 DC 10/03/19 21:54 80 MLS/HR Potassium Acetate 55 meq/Magnesium Sulfate 20 meq/ Calcium Gluconate 10 meq/ Multivitamins 10 ml/Chromium/ Copper/Manganese/ Seleni/Zn 0.5 ml/ Insulin Human Regular 30 unit/ Total Parenteral Nutrition/Amino Acids/Dextrose/ Fat Emulsion Intravenous 1,920 ml @ 80 mls/hr TPN CONT 08/18/19 22:00 08/19/19 21:59 DC 08/19/19 01:00 80 MLS/HR Potassium Acetate 55 meq/Magnesium Sulfate 20 meq/ Calcium Gluconate 10 meq/ Multivitamins 10 ml/Chromium/ Copper/Manganese/ Seleni/Zn 0.5 ml/ Insulin Human Regular 35 unit/ Total Parenteral Nutrition/Amino Acids/Dextrose/ Fat Emulsion Intravenous 1,920 ml @ 80 mls/hr TPN CONT 08/16/19 22:00 08/17/19 21:59 DC 08/16/19 22:02 80 MLS/HR Potassium Acetate 60 meq/Magnesium Sulfate 10 meq/ Multivitamins 10 ml/Chromium/ Copper/Manganese/ Seleni/Zn 1 ml/ Insulin Human Regular 20 unit/ Total Parenteral Nutrition/Amino Acids/Dextrose/ Fat Emulsion Intravenous 1,920 ml @ 80 mls/hr TPN CONT 10/05/19 22:00 10/06/19 21:59 DC 10/05/19 21:55 80 MLS/HR Potassium Acetate 60 meq/Magnesium Sulfate 14 meq/ Multivitamins 10 ml/Chromium/ Copper/Manganese/ Seleni/Zn 1 ml/ Insulin Human Regular 15 unit/ Sodium Chloride 20 meq/Total Parenteral Nutrition/Amino Acids/Dextrose/ Fat Emulsion Intravenous 1,920 ml @ 80 mls/hr TPN CONT 10/10/19 22:00 10/11/19 21:59 DC 10/10/19 21:54 80 MLS/HR Potassium Acetate 60 meq/Magnesium Sulfate 14 meq/ Multivitamins 10 ml/Chromium/ Copper/Manganese/ Seleni/Zn 1 ml/ Insulin Human Regular 15 unit/ Total Parenteral Nutrition/Amino Acids/Dextrose/ Fat Emulsion Intravenous 1,920 ml @ 80 mls/hr TPN CONT 10/09/19 22:00 10/10/19 21:59 DC 10/09/19 22:22 80 MLS/HR Potassium Acetate 60 meq/Magnesium Sulfate 14 meq/ Multivitamins 10 ml/Chromium/ Copper/Manganese/ Seleni/Zn 1 ml/ Insulin Human Regular 20 unit/ Total Parenteral Nutrition/Amino Acids/Dextrose/ Fat Emulsion Intravenous 1,920 ml @ 80 mls/hr TPN CONT 10/06/19 22:00 10/07/19 21:59 DC 10/06/19 22:26 80 MLS/HR Potassium Acetate 60 meq/Magnesium Sulfate 5 meq/ Multivitamins 10 ml/Chromium/ Copper/Manganese/ Seleni/Zn 1 ml/ Insulin Human Regular 30 unit/ Total Parenteral Nutrition/Amino Acids/Dextrose/ Fat Emulsion Intravenous 1,920 ml @ 80 mls/hr TPN CONT 09/24/19 22:00 09/25/19 21:59 DC 09/24/19 21:54 80 MLS/HR Potassium Acetate 65 meq/Magnesium Sulfate 20 meq/ Calcium Gluconate 10 meq/ Multivitamins 10 ml/Chromium/ Copper/Manganese/ Seleni/Zn 0.5 ml/ Insulin Human Regular 30 unit/ Total Parenteral Nutrition/Amino Acids/Dextrose/ Fat Emulsion Intravenous 1,920 ml @ 80 mls/hr TPN CONT 08/17/19 22:00 08/18/19 21:59 DC 08/17/19 22:22 80 MLS/HR Potassium Acetate 80 meq/Magnesium Sulfate 5 meq/ Multivitamins 10 ml/Chromium/ Copper/Manganese/ Seleni/Zn 1 ml/ Insulin Human Regular 20 unit/ Total Parenteral Nutrition/Amino Acids/Dextrose/ Fat Emulsion Intravenous 1,920 ml @ 80 mls/hr TPN CONT 09/23/19 22:00 09/24/19 21:59 DC 09/23/19 21:59 80 MLS/HR Prochlorperazine Edisylate (Compazine) 5 mg PACU PRN PRN 08/15/19 07:00 08/16/19 06:59 DC Propofol (Diprivan) 200 mg STK-MED ONCE 10/18/19 07:44 10/18/19 07:44 DC Ringer's Solution 1,000 ml @ 30 mls/hr Q24H 08/15/19 07:00 08/15/19 18:59 DC Rocuronium [place] (Zemuron) 100 mg STK-MED ONCE 10/18/19 07:44 10/18/19 07:44 DC Saliva Substitute (Biotene Moisturizing Mouth) 2 spray PRN Q15MIN PRN 09/08/19 11:00 Sevoflurane (Ultane) 60 ml STK-MED ONCE 08/15/19 12:26 08/15/19 12:27 DC Sodium Bicarbonate 150 meq/Dextrose 1,150 ml @ 75 mls/hr 1X ONCE 10/18/19 16:30 10/19/19 07:49 DC 10/18/19 20:02 75 MLS/HR Sodium Bicarbonate 50 meq/Sodium Chloride 1,050 ml @ 75 mls/hr Q14H 07/06/19 07:30 07/11/19 10:28 DC 07/10/19 21:10 75 MLS/HR Sodium Acetate 50 meq/Potassium Acetate 55 meq/ Magnesium Sulfate 20 meq/Calcium Gluconate 10 meq/ Multivitamins 10 ml/Chromium/ Copper/Manganese/ Seleni/Zn 0.5 ml/ Insulin Human Regular 35 unit/ Total Parenteral Nutrition/Amino Acids/Dextrose/ Fat Emulsion Intravenous 1,800 ml @ 75 mls/hr TPN CONT 08/13/19 22:00 08/14/19 21:59 DC 08/13/19 22:03 75 MLS/HR Sodium Bicarbonate (Sodium Bicarb Adult 8.4% Syr) 100 meq 1X ONCE 10/18/19 16:30 10/18/19 16:31 DC 10/18/19 17:07 100 MEQ Sodium Chloride (Normal Saline Flush) 3 ml QSHIFT PRN 10/18/19 14:45 Sodium Chloride 80 meq/Potassium Chloride 30 meq/ Potassium Acetate 30 meq/Magnesium Sulfate 14 meq/ Multivitamins 10 ml/Chromium/ Copper/Manganese/ Seleni/Zn 1 ml/ Insulin Human Regular 15 unit/ Total Parenteral Nutrition/Amino Acids/Dextrose/ Fat Emulsion Intravenous 1,920 ml @ 80 mls/hr TPN CONT 10/19/19 22:00 10/20/19 21:59 DC 10/19/19 23:05 80 MLS/HR Sodium Chloride 90 meq/Calcium Gluconate 10 meq/ Multivitamins 10 ml/Chromium/ Copper/Manganese/ Seleni/Zn 0.5 ml/ Total Parenteral Nutrition/Amino Acids/Dextrose/ Fat Emulsion Intravenous 1,512 ml @ 63 mls/hr TPN CONT 07/06/19 22:00 07/07/19 21:59 DC 07/06/19 22:06 63 MLS/HR Sodium Chloride 90 meq/Calcium Gluconate 10 meq/ Multivitamins 10 ml/Chromium/ Copper/Manganese/ Seleni/Zn 1 ml/ Total Parenteral Nutrition/Amino Acids/Dextrose/ Fat Emulsion Intravenous 55.005 ml @ 2.292 mls/hr TPN CONT 07/06/19 22:00 07/06/19 12:33 DC Sodium Chloride 90 meq/Magnesium Sulfate 10 meq/ Calcium Gluconate 20 meq/ Multivitamins 10 ml/Chromium/ Copper/Manganese/ Seleni/Zn 0.5 ml/ Total Parenteral Nutrition/Amino Acids/Dextrose/ Fat Emulsion Intravenous 1,512 ml @ 63 mls/hr TPN CONT 07/07/19 22:00 07/08/19 21:59 DC 07/07/19 22:25 63 MLS/HR Sodium Chloride 90 meq/Magnesium Sulfate 12 meq/ Calcium Gluconate 15 meq/ Multivitamins 10 ml/Chromium/ Copper/Manganese/ Seleni/Zn 0.5 ml/ Insulin Human Regular 25 unit/ Total Parenteral Nutrition/Amino Acids/Dextrose/ Fat Emulsion Intravenous 1,400 ml @ 58.333 mls/ hr TPN CONT 07/27/19 22:00 07/28/19 21:59 DC 07/27/19 21:41 58.333 MLS/HR Sodium Chloride 90 meq/Potassium Chloride 15 meq/ Magnesium Sulfate 12 meq/Calcium Gluconate 15 meq/ Multivitamins 10 ml/Chromium/ Copper/Manganese/ Seleni/Zn 0.5 ml/ Insulin Human Regular 25 unit/ Total Parenteral Nutrition/Amino Acids/Dextrose/ Fat Emulsion Intravenous 1,400 ml @ 58.333 mls/ hr TPN CONT 07/26/19 22:00 07/27/19 21:59 DC 07/26/19 22:13 58.333 MLS/HR Sodium Chloride 90 meq/Potassium Chloride 15 meq/ Potassium Phosphate 10 mmol/ Magnesium Sulfate 8 meq/Calcium Gluconate 15 meq/ Multivitamins 10 ml/Chromium/ Copper/Manganese/ Seleni/Zn 0.5 ml/ Insulin Human Regular 25 unit/ Total Parenteral Nutrition/Amino Acids/Dextrose/ Fat Emulsion Intravenous 1,400 ml @ 58.333 mls/ hr TPN CONT 07/24/19 22:00 07/25/19 21:59 DC 07/24/19 21:20 58.333 MLS/HR Sodium Chloride 90 meq/Potassium Chloride 15 meq/ Potassium Phosphate 10 mmol/ Magnesium Sulfate 10 meq/Calcium Gluconate 20 meq/ Multivitamins 10 ml/Chromium/ Copper/Manganese/ Seleni/Zn 0.5 ml/ Total Parenteral Nutrition/Amino Acids/Dextrose/ Fat Emulsion Intravenous 1,400 ml @ 58.333 mls/ hr TPN CONT 07/11/19 22:00 07/12/19 21:59 DC 07/11/19 21:42 58.333 MLS/HR Sodium Chloride 90 meq/Potassium Chloride 15 meq/ Potassium Phosphate 10 mmol/ Magnesium Sulfate 12 meq/Calcium Gluconate 15 meq/ Multivitamins 10 ml/Chromium/ Copper/Manganese/ Seleni/Zn 0.5 ml/ Insulin Human Regular 25 unit/ Total Parenteral Nutrition/Amino Acids/Dextrose/ Fat Emulsion Intravenous 1,400 ml @ 58.333 mls/ hr TPN CONT 07/25/19 22:00 07/26/19 21:59 DC 07/25/19 22:24 58.333 MLS/HR Sodium Chloride 90 meq/Potassium Chloride 15 meq/ Potassium Phosphate 15 mmol/ Magnesium Sulfate 10 meq/Calcium Gluconate 15 meq/ Multivitamins 10 ml/Chromium/ Copper/Manganese/ Seleni/Zn 0.5 ml/ Total Parenteral Nutrition/Amino Acids/Dextrose/ Fat Emulsion Intravenous 1,400 ml @ 58.333 mls/ hr TPN CONT 07/12/19 22:00 07/13/19 21:59 DC 07/12/19 22:17 58.333 MLS/HR Sodium Chloride 90 meq/Potassium Chloride 15 meq/ Potassium Phosphate 15 mmol/ Magnesium Sulfate 10 meq/Calcium Gluconate 20 meq/ Multivitamins 10 ml/Chromium/ Copper/Manganese/ Seleni/Zn 0.5 ml/ Total Parenteral Nutrition/Amino Acids/Dextrose/ Fat Emulsion Intravenous 1,200 ml @ 50 mls/hr TPN CONT 07/10/19 22:00 07/10/19 14:17 DC Sodium Chloride 90 meq/Potassium Chloride 15 meq/ Potassium Phosphate 18 mmol/ Magnesium Sulfate 8 meq/Calcium Gluconate 15 meq/ Multivitamins 10 ml/Chromium/ Copper/Manganese/ Seleni/Zn 0.5 ml/ Insulin Human Regular 10 unit/ Total Parenteral Nutrition/Amino Acids/Dextrose/ Fat Emulsion Intravenous 1,400 ml @ 58.333 mls/ hr TPN CONT 07/15/19 22:00 07/16/19 21:59 DC 07/15/19 21:43 58.333 MLS/HR Sodium Chloride 90 meq/Potassium Chloride 15 meq/ Potassium Phosphate 18 mmol/ Magnesium Sulfate 8 meq/Calcium Gluconate 15 meq/ Multivitamins 10 ml/Chromium/ Copper/Manganese/ Seleni/Zn 0.5 ml/ Insulin Human Regular 15 unit/ Total Parenteral Nutrition/Amino Acids/Dextrose/ Fat Emulsion Intravenous 1,400 ml @ 58.333 mls/ hr TPN CONT 07/18/19 22:00 07/19/19 21:59 DC 07/18/19 21:47 58.333 MLS/HR Sodium Chloride 90 meq/Potassium Chloride 15 meq/ Potassium Phosphate 18 mmol/ Magnesium Sulfate 8 meq/Calcium Gluconate 15 meq/ Multivitamins 10 ml/Chromium/ Copper/Manganese/ Seleni/Zn 0.5 ml/ Insulin Human Regular 20 unit/ Total Parenteral Nutrition/Amino Acids/Dextrose/ Fat Emulsion Intravenous 1,400 ml @ 58.333 mls/ hr TPN CONT 07/21/19 22:00 07/22/19 21:59 DC 07/21/19 22:45 58.333 MLS/HR Sodium Chloride 90 meq/Potassium Chloride 15 meq/ Potassium Phosphate 18 mmol/ Magnesium Sulfate 8 meq/Calcium Gluconate 15 meq/ Multivitamins 10 ml/Chromium/ Copper/Manganese/ Seleni/Zn 0.5 ml/ Total Parenteral Nutrition/Amino Acids/Dextrose/ Fat Emulsion Intravenous 1,400 ml @ 58.333 mls/ hr TPN CONT 07/14/19 22:00 07/15/19 21:59 DC 07/14/19 22:00 58.333 MLS/HR Sodium Chloride 90 meq/Potassium Chloride 30 meq/ Potassium Acetate 30 meq/Magnesium Sulfate 15 meq/ Multivitamins 10 ml/Chromium/ Copper/Manganese/ Seleni/Zn 1 ml/ Insulin Human Regular 15 unit/ Total Parenteral Nutrition/Amino Acids/Dextrose/ Fat Emulsion Intravenous 1,680 ml @ 70 mls/hr TPN CONT 11/03/19 22:00 11/04/19 21:59 DC 11/03/19 22:06 70 MLS/HR Sodium Chloride 90 meq/Potassium Phosphate 15 mmol/ Magnesium Sulfate 12 meq/Calcium Gluconate 15 meq/ Multivitamins 10 ml/Chromium/ Copper/Manganese/ Seleni/Zn 0.5 ml/ Insulin Human Regular 30 unit/ Total Parenteral Nutrition/Amino Acids/Dextrose/ Fat Emulsion Intravenous 1,400 ml @ 58.333 mls/ hr TPN CONT 07/29/19 22:00 07/30/19 21:59 DC 07/29/19 21:49 58.333 MLS/HR Sodium Chloride 90 meq/Potassium Phosphate 15 mmol/ Magnesium Sulfate 12 meq/Calcium Gluconate 15 meq/ Multivitamins 10 ml/Chromium/ Copper/Manganese/ Seleni/Zn 0.5 ml/ Insulin Human Regular 40 unit/ Total Parenteral Nutrition/Amino Acids/Dextrose/ Fat Emulsion Intravenous 1,400 ml @ 58.333 mls/ hr TPN CONT 07/30/19 22:00 07/31/19 21:59 DC 07/30/19 21:21 58.333 MLS/HR Sodium Chloride 90 meq/Potassium Phosphate 19 mmol/ Magnesium Sulfate 12 meq/Calcium Gluconate 15 meq/ Multivitamins 10 ml/Chromium/ Copper/Manganese/ Seleni/Zn 0.5 ml/ Insulin Human Regular 40 unit/ Total Parenteral Nutrition/Amino Acids/Dextrose/ Fat Emulsion Intravenous 1,400 ml @ 58.333 mls/ hr TPN CONT 07/31/19 22:00 08/01/19 21:59 DC 07/31/19 21:54 58.333 MLS/HR Sodium Chloride 90 meq/Potassium Phosphate 5 mmol/ Magnesium Sulfate 12 meq/Calcium Gluconate 15 meq/ Multivitamins 10 ml/Chromium/ Copper/Manganese/ Seleni/Zn 0.5 ml/ Insulin Human Regular 30 unit/ Total Parenteral Nutrition/Amino Acids/Dextrose/ Fat Emulsion Intravenous 1,400 ml @ 58.333 mls/ hr TPN CONT 07/28/19 22:00 07/29/19 21:59 DC 07/28/19 22:08 58.333 MLS/HR Sodium Chloride 100 meq/Potassium Chloride 30 meq/ Potassium Acetate 30 meq/Magnesium Sulfate 12 meq/ Multivitamins 10 ml/Chromium/ Copper/Manganese/ Seleni/Zn 1 ml/ Insulin Human Regular 15 unit/ Total Parenteral Nutrition/Amino Acids/Dextrose/ Fat Emulsion Intravenous 1,680 ml @ 70 mls/hr TPN CONT 10/23/19 22:00 10/24/19 21:59 DC 10/23/19 21:23 70 MLS/HR Sodium Chloride 100 meq/Potassium Chloride 40 meq/ Magnesium Sulfate 15 meq/Calcium Gluconate 15 meq/ Multivitamins 10 ml/Chromium/ Copper/Manganese/ Seleni/Zn 0.5 ml/ Insulin Human Regular 35 unit/ Total Parenteral Nutrition/Amino Acids/Dextrose/ Fat Emulsion Intravenous 1,400 ml @ 58.333 mls/ hr TPN CONT 08/07/19 22:00 08/08/19 21:59 DC 08/07/19 22:46 58.333 MLS/HR Sodium Chloride 100 meq/Potassium Chloride 40 meq/ Magnesium Sulfate 20 meq/Calcium Gluconate 10 meq/ Multivitamins 10 ml/Chromium/ Copper/Manganese/ Seleni/Zn 0.5 ml/ Insulin Human Regular 35 unit/ Total Parenteral Nutrition/Amino Acids/Dextrose/ Fat Emulsion Intravenous 1,400 ml @ 58.333 mls/ hr TPN CONT 08/11/19 22:00 08/12/19 21:59 DC 08/12/19 00:06 58.333 MLS/HR Sodium Chloride 100 meq/Potassium Chloride 40 meq/ Magnesium Sulfate 20 meq/Calcium Gluconate 15 meq/ Multivitamins 10 ml/Chromium/ Copper/Manganese/ Seleni/Zn 0.5 ml/ Insulin Human Regular 35 unit/ Total Parenteral Nutrition/Amino Acids/Dextrose/ Fat Emulsion Intravenous 1,400 ml @ 58.333 mls/ hr TPN CONT 08/10/19 22:00 08/11/19 21:59 DC 08/10/19 22:27 58.333 MLS/HR Sodium Chloride 100 meq/Potassium Phosphate 10 mmol/ Magnesium Sulfate 12 meq/Calcium Gluconate 15 meq/ Multivitamins 10 ml/Chromium/ Copper/Manganese/ Seleni/Zn 0.5 ml/ Insulin Human Regular 35 unit/ Potassium Chloride 20 meq/ Total Parenteral Nutrition/Amino Acids/Dextrose/ Fat Emulsion Intravenous 1,400 ml @ 58.333 mls/ hr TPN CONT 08/04/19 22:00 08/05/19 21:59 DC 08/04/19 22:10 58.333 MLS/HR Sodium Chloride 100 meq/Potassium Phosphate 19 mmol/ Magnesium Sulfate 12 meq/Calcium Gluconate 15 meq/ Multivitamins 10 ml/Chromium/ Copper/Manganese/ Seleni/Zn 0.5 ml/ Insulin Human Regular 40 unit/ Potassium Chloride 20 meq/ Total Parenteral Nutrition/Amino Acids/Dextrose/ Fat Emulsion Intravenous 1,400 ml @ 58.333 mls/ hr TPN CONT 08/03/19 22:00 08/04/19 21:59 DC 08/03/19 21:20 58.333 MLS/HR Sodium Chloride 100 meq/Potassium Phosphate 5 mmol/ Magnesium Sulfate 12 meq/Calcium Gluconate 15 meq/ Multivitamins 10 ml/Chromium/ Copper/Manganese/ Seleni/Zn 0.5 ml/ Insulin Human Regular 35 unit/ Potassium Chloride 20 meq/ Total Parenteral Nutrition/Amino Acids/Dextrose/ Fat Emulsion Intravenous 1,400 ml @ 58.333 mls/ hr TPN CONT 08/05/19 22:00 08/06/19 21:59 DC 08/05/19 22:59 58.333 MLS/HR Sodium Chloride 110 meq/Potassium Chloride 30 meq/ Potassium Acetate 30 meq/Magnesium Sulfate 15 meq/ Multivitamins 10 ml/Chromium/ Copper/Manganese/ Seleni/Zn 1 ml/ Insulin Human Regular 15 unit/ Total Parenteral Nutrition/Amino Acids/Dextrose/ Fat Emulsion Intravenous 1,680 ml @ 70 mls/hr TPN CONT 11/05/19 22:00 11/06/19 21:59 DC 11/05/19 22:01 70 MLS/HR Sodium Chloride 110 meq/Sodium Phosphate 10 mmol/ Potassium Chloride 30 meq/ Potassium Acetate 30 meq/Magnesium Sulfate 15 meq/ Multivitamins 10 ml/Chromium/ Copper/Manganese/ Seleni/Zn 1 ml/ Insulin Human Regular 15 unit/ Total Parenteral Nutrition/Amino Acids/Dextrose/ Fat Emulsion Intravenous 1,680 ml @ 70 mls/hr TPN CONT 11/06/19 22:00 11/07/19 21:59 DC 11/06/19 22:03 70 MLS/HR Sodium Chloride 120 meq/Sodium Phosphate 10 mmol/ Potassium Chloride 30 meq/ Potassium Acetate 30 meq/Magnesium Sulfate 15 meq/ Multivitamins 10 ml/Chromium/ Copper/Manganese/ Seleni/Zn 1 ml/ Insulin Human Regular 15 unit/ Total Parenteral Nutrition/Amino Acids/Dextrose/ Fat Emulsion Intravenous 1,680 ml @ 70 mls/hr TPN CONT 11/10/19 22:00 11/11/19 21:59 11/10/19 22:35 70 MLS/HR Succinylcholine Chloride (Anectine) 120 mg 1X ONCE 07/11/19 08:30 07/11/19 08:31 DC 07/11/19 08:34 120 MG Vancomycin HCl (Vanco Per Pharmacy) 1 each PRN DAILY PRN 10/30/19 09:15 11/02/19 07:41 DC 11/01/19 02:46 1 EACH Vancomycin HCl (Vancomycin Random Level) 1 each 1X ONCE 11/01/19 01:00 11/01/19 01:01 DC 11/01/19 01:00 1 EACH Vancomycin HCl (Vancomycin Trough Level) 1 each 1X ONCE 11/02/19 09:30 11/02/19 09:31 Cancel Vancomycin HCl 1.5 gm/Sodium Chloride 500 ml @ 250 mls/hr Q12H 11/01/19 10:00 11/02/19 07:41 DC 11/01/19 22:07 250 MLS/HR Vancomycin HCl 2 gm/Sodium Chloride 500 ml @ 250 mls/hr 1X ONCE 10/30/19 10:00 10/30/19 11:59 DC 10/30/19 10:34 250 MLS/HR Vasopressin (Vasostrict) 20 unit STK-MED ONCE 10/18/19 12:23 10/18/19 12:23 DC Vasopressin 20 unit/Dextrose 101 ml @ 12 mls/hr CONT PRN 10/18/19 15:30 10/25/19 04:17 12 MLS/HR Vecuronium [place] (Norcuron Bolus) 6 mg PRN Q6HRS PRN 08/25/19 19:15 08/25/19 19:35 DC Labs: Lab Laboratory Tests Test 11/10/19 09:00 11/10/19 12:26 11/10/19 18:12 11/11/19 00:02 White Blood Count 18.4 x10^3/uL (4.0-11.0) Red Blood Count 2.92 x10^6/uL (3.50-5.40) Hemoglobin 8.2 g/dL (12.0-15.5) Hematocrit 25.0 % (36.0-47.0) Mean Corpuscular Volume 86 fL (79-100) Mean Corpuscular Hemoglobin 28 pg (25-35) Mean Corpuscular Hemoglobin Concent 33 g/dL (31-37) Red Cell Distribution Width 15.6 % (11.5-14.5) Platelet Count 532 x10^3/uL (140-400) Neutrophils (%) (Auto) 85 % (31-73) Lymphocytes (%) (Auto) 6 % (24-48) Monocytes (%) (Auto) 5 % (0-9) Eosinophils (%) (Auto) 3 % (0-3) Basophils (%) (Auto) 1 % (0-3) Neutrophils # (Auto) 15.7 x10^3/uL (1.8-7.7) Lymphocytes # (Auto) 1.2 x10^3/uL (1.0-4.8) Monocytes # (Auto) 0.9 x10^3/uL (0.0-1.1) Eosinophils # (Auto) 0.6 x10^3/uL (0.0-0.7) Basophils # (Auto) 0.1 x10^3/uL (0.0-0.2) Glucose (Fingerstick) 143 mg/dL (70-99) 126 mg/dL (70-99) 138 mg/dL (70-99) Test 11/11/19 06:00 11/11/19 06:21 11/11/19 07:30 White Blood Count 16.9 x10^3/uL (4.0-11.0) Red Blood Count 2.66 x10^6/uL (3.50-5.40) Hemoglobin 7.9 g/dL (12.0-15.5) Hematocrit 24.3 % (36.0-47.0) Mean Corpuscular Volume 91 fL (79-100) Mean Corpuscular Hemoglobin 30 pg (25-35) Mean Corpuscular Hemoglobin Concent 32 g/dL (31-37) Red Cell Distribution Width 16.7 % (11.5-14.5) Platelet Count 569 x10^3/uL (140-400) Neutrophils (%) (Auto) 83 % (31-73) Lymphocytes (%) (Auto) 9 % (24-48) Monocytes (%) (Auto) 6 % (0-9) Eosinophils (%) (Auto) 2 % (0-3) Basophils (%) (Auto) 1 % (0-3) Neutrophils # (Auto) 14.1 x10^3/uL (1.8-7.7) Lymphocytes # (Auto) 1.5 x10^3/uL (1.0-4.8) Monocytes # (Auto) 1.0 x10^3/uL (0.0-1.1) Eosinophils # (Auto) 0.3 x10^3/uL (0.0-0.7) Basophils # (Auto) 0.1 x10^3/uL (0.0-0.2) Glucose (Fingerstick) 150 mg/dL (70-99) Sodium Level 136 mmol/L (136-145) Potassium Level 4.2 mmol/L (3.5-5.1) Chloride Level 103 mmol/L (98-107) Carbon Dioxide Level 26 mmol/L (21-32) Anion Gap 7 (6-14) Blood Urea Nitrogen 13 mg/dL (7-20) Creatinine 0.6 mg/dL (0.6-1.0) Estimated GFR (Cockcroft-Gault) 106.3 BUN/Creatinine Ratio 22 (6-20) Glucose Level 125 mg/dL (70-99) Calcium Level 9.4 mg/dL (8.5-10.1) Total Bilirubin 0.5 mg/dL (0.2-1.0) Aspartate Amino Transf (AST/SGOT) 16 U/L (15-37) Alanine Aminotransferase (ALT/SGPT) 15 U/L (14-59) Alkaline Phosphatase 129 U/L (46-116) Total Protein 5.1 g/dL (6.4-8.2) Albumin 1.1 g/dL (3.4-5.0) Albumin/Globulin Ratio 0.3 (1.0-1.7) Micro NEG ALEXANDRA 56 PSEUDOMONAS AERUGINOSA ANTIBIOTIC RESULT INTERPRETATION AMIKACIN <=16 S AZTREONAM >16 R CEFTAZIDIME >16 R CIPROFLOXACIN <=0.25 S CEFEPIME 16 I GENTAMICIN <=2 S LEVOFLOXACIN <=0.5 S CONTINUED ON NEXT PAGE RUN DATE: 09/28/19 [facility] *LIVE* PAGE 2 RUN TIME: 1121 Specimen Inquiry SPEC: [id number] PATIENT: SCOTT CUELLAR [id number] (Continued) ---- -------- Procedure Result ANTIMICROBIAL SUSCEPTIBILITY Preliminary (continued) MEROPENEM <=1 S PIPERACILLIN/TAZOBACTAM 64 S TOBRAMYCIN <=2 S Unless otherwise specified, Testing Performed by: [address] [id number] For Inquires, the Physician may contact the Microbiology department at [phone] Objective: Assessment: Patient with prolonged hospitalization more than 4 months Multiple medical problems Multiple surgical procedures S/P Exp. 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 parapsilosis & PSAE (I-merrem/ceftazidime/AZT/cefepime)) Leucocytosis -trending upward Fever Acute gallstone pancreatitis with persistent necrosis - 07/27. CT A/P Increased ascites. 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 status post KAYLIN drain placement; C. parapsilosis. s/p drain 08/23 + yeast & high amylase; s/p additional drain on 08/25. Drains removed. -08/23. fluid devyn parapsilosis fluid, amylase high - 09/23 showed multiple pseudocysts, slight larger on the right. s/p drains x 3, 09/24. + PSAE (MDRO-R Cefepime, Zosyn ALEXANDRA < 64) and yeast, -09/24 s/p drain replacement x 3; fluid cult PSAE (MDRO), yeast; treated -10/29 CT A/P shows smaller fluid collections. -722 CT abdomen and pelvis drains in place Ascites s/p paracentesis 08/02 & 08/23. C. parapsilosis Cholelithiasis with thickening of the gallbladder wall. JUANA, Hyperkalemia, Metabolic acidosis off dialysis Acute hypoxic resp failure. trach/vent. sputum 09/30 + PSAE (I merrem) ; sputum culture November 05+ for PSAE R Merrem, sensitive to cefepime Pleural effusion status post CTS left side Abdominal fluid culture MDRO Pseudomonas, yeast Sputum culture positive 11/05 for MDRO Pseudomonas Chest tube fluid positive for 11/07 Devyn Parapsilosis Generalized debility Plan: Plan of Care Continue Avycaz /micafungin DC dapto Follow-up C. 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
--- NOTE | 2019-11-11 09:07 | PDOC ---
PROGRESS NOTES Chief Complaint Chief Complaint IMPRESSION S/P Exp. 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 parapsilosis & PSAE (I-merrem/ceftazidime/AZT/cefepime)) Leucocytosis -trending upward Fever Acute gallstone pancreatitis with persistent necrosis Postop (Exploratory laparotomy, lysis of adhesions, subtotal cholecystectomy with cholangiogram, gastrojejunostomy tube placement, pancreatic necrosectomy) Acute hypoxic Respiratory failure required mechanical ventilation Tracheostomy bilateral pleural effusions/pulm edema s/p Throacentesis on 10/03/2019 Severe Acute gallstone pancreatitis (not a surgical candidate at this time) with necrosis Acute kidney failure now requiring dialysis Gallstones (Calculus of gallbladder with acute cholecystitis without obstruction) HTN Intractable pain Intractable nausea Covid 19 negative. Acute on chronic anemia EEG: No seizure activity Fever - intermittent ? Ileus with vomiting Abd distention - U/S and CT reviewed s/p 0.4 L of opaque, debris-containing a scites was removed 08/23 Acute pancreatitis with persistent necrosis Gallstone pancreatitis with necrosis. -CT A/P 09/23 showed multiple pseudocysts, slight larger on the right. s/p drains x 3, 09/24. + PSAE (MDRO-R Cefepime, Zosyn ALEXANDRA < 64) and yeast, -s/p drain 08/14. C. parapsilosis. s/p drain 08/23 + yeast & high amylase; s/p additional drain on 08/25. Drains removed. Ascites s/p paracentesis 08/02 & 08/23. C. parapsilosis JUANA. off HD. A large fluid collection in the pancreatic bed has slightly decreased in size, described below, the pancreas itself is difficult to visualize, which could be due to necrosis or obscuration of pancreatic parenchyma from the surrounding fluid collection.10/02 - 08/14 status post KAYLIN drain placement + C paropsilosis. s/p additional drains 08/25 Anemia - S/p PRBCs. Cholelithiasis with thickening of the gallbladder wall. Leucocytosis improving JUANA, hyperkalemia, Metabolic acidosis off dialysis hypocalcemia Prediabetes HTN s/p trach Hyperglycemia severe protein-caloric malnutrition Moderate to large left pleural effusion with atelectasis and collapse of most of the left lower lobe, stable Extensive retroperitoneal fluid collections persist. Percutaneous drains remain within the collections in both paracolic gutters. These communicate with additional pelvic and peripancreatic collections. PLAN Continue Avycaz /micafungin DC dapto Follow-up C. difficile PCR BC from 11/01 neg to date History of Present Illness History of Present Illness 11/11/2019 Patient seen in and examined in the ICU She is still extremely critically ill Appears weak, frail, and pale Better color today with improved eye contact and expression Discussed with RN Chart reviewed 11/08/2019 Patient seen and examined in the ICU She is still extremely critically ill Appears extremely weak frail and pale Discussed with RN Chart reviewed Vitals Vitals Vital Signs Date Time Temp Pulse Resp B/P (MAP) Pulse Ox O2 Delivery O2 Flow Rate FiO2 11/11/19 08:01 97 Room Air 11/11/19 08:00 99.0 133 33 123/63 (83) 99.0 11/10/19 08:43 2.0 Physical Exam Physical Exam GENERAL: sitting in chair, mild distress HEENT: Pupils equal, oral cavity dry. NGT out NECK: Tracheostomy LUNGS: Diminished aeration bases, CT on left HEART: S1, S2, regular, tachy 110s ABDOMEN: Distended, bowel sounds hypoactive, soft, goyal x 2, 3 KAYLIN drains, G-J tube : Lind in place EXTREMITIES: Trace generalized edema, no cyanosis. RADHA hose bilaterally, SKIN: warm touch. No signs of rash. LUE-PICC without signs of complications General: Oriented X3, Cooperative, No acute distress Heart: Other (distant heart sounds, tachycardic) Lungs: Crackles, Other (l ct) Abdomen: Soft, Other (multiple drains in place) Extremities: Other (Diffuse edema) Skin: No rashes, No significant lesion Labs LABS SEX: F EXAM STATUS: ADM IN ORD. PHYSICIAN: 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 APRN REASON: fevers PROCEDURE: CT ABD PELV W/ IV CONTRST ONLY EXAM: CT ABDOMEN/PELVIS WITH CONTRAST. HISTORY: Fever. TECHNIQUE: Computed tomography of the abdomen and pelvis was performed after the intravenous administration of iodinated contrast. One or more of the following individualized dose reduction techniques were utilized for this examination: 1. Automated exposure control. 2. Adjustment of the mA and/or kV according to patient size. 3. Use of iterative reconstruction technique. COMPARISON: None. FINDINGS: Lung windows through the visualized portions of the bases reveal a left pleural drain. A right pleural effusion is small to moderate. There is atelectasis or infiltrate throughout both lung bases. Bone windows reveal no suspicious lesions. Bilateral breast implants are noted. A central venous catheter tip is noted in the superior vena cava. The bladder is decompressed by a Lind catheter. Multiple percutaneous drains are noted throughout the abdomen and pelvis. One fills the subcutaneous compartment along an anterior abdominal incision. There is no surrounding fluid collection. Another in the right upper quadrant was under the liver and. There is no surrounding collection. The Another on the left lower quadrant enters the collection in the left paracolic gutter/retroperitoneum and measures 16 cm craniocaudally and 8.4 x 4.3 cm transaxially. This is not clearly changed in size. It crosses the midline pelvis to communicate with another larger similar collection in the right paracolic gutter and retroperitoneum that measures 19 cm craniocaudally by 11.5 x 8.1 cm transaxially. It also contains a percutaneous drain. This collection communicates with a collection that enters the right anterior pararenal space and retroperitoneum along the anterior aspect of the body and tail of the pancreas. A drain has been removed from this collection since the prior study. The collection persists, measuring approximately 3 cm short axis, but 20 cm long. It also communicates with the left paracolic gutter collection superiorly. A small amount of free pelvic fluid does not appear loculated. An air-fluid level in the rectum is consistent with diarrhea. There is at least mild diffuse colonic wall thickening. There is no small bowel obstruction. A gastrojejunostomy catheter has its tip in the left upper quadrant. A hepatic cyst is likely benign and measures 1.3 cm. The spleen, gallbladder, adrenal glands and kidneys are unremarkable. The pancreatic parenchyma is small, consistent with necrosis/atrophy. The pancreatic duct is not dilated. IMPRESSION: 1. Colonic wall thickening with findings suggesting diarrhea. Correlate for colitis. 2. Extensive retroperitoneal fluid collections persist. Percutaneous drains remain within the collections in both paracolic gutters. These communicate with additional pelvic and peripancreatic collections. 3. Small to moderate right pleural effusion. No left pleural fluid is detectable in this [id number] with a drain in place. Bibasilar atelectasis or infiltrate. Electronically signed by: Enzo Perera MD (11/08/2019 3:22 PM) [id number] DICTATED and SIGNED BY: PAOLA PERERA MD DATE: 11/08/19 1522 Laboratory Tests Test 11/10/19 12:26 11/10/19 18:12 11/11/19 00:02 11/11/19 06:00 Glucose (Fingerstick) 143 mg/dL (70-99) 126 mg/dL (70-99) 138 mg/dL (70-99) White Blood Count 16.9 x10^3/uL (4.0-11.0) Red Blood Count 2.66 x10^6/uL (3.50-5.40) Hemoglobin 7.9 g/dL (12.0-15.5) Hematocrit 24.3 % (36.0-47.0) Mean Corpuscular Volume 91 fL (79-100) Mean Corpuscular Hemoglobin 30 pg (25-35) Mean Corpuscular Hemoglobin Concent 32 g/dL (31-37) Red Cell Distribution Width 16.7 % (11.5-14.5) Platelet Count 569 x10^3/uL (140-400) Neutrophils (%) (Auto) 83 % (31-73) Lymphocytes (%) (Auto) 9 % (24-48) Monocytes (%) (Auto) 6 % (0-9) Eosinophils (%) (Auto) 2 % (0-3) Basophils (%) (Auto) 1 % (0-3) Neutrophils # (Auto) 14.1 x10^3/uL (1.8-7.7) Lymphocytes # (Auto) 1.5 x10^3/uL (1.0-4.8) Monocytes # (Auto) 1.0 x10^3/uL (0.0-1.1) Eosinophils # (Auto) 0.3 x10^3/uL (0.0-0.7) Basophils # (Auto) 0.1 x10^3/uL (0.0-0.2) Test 11/11/19 06:21 11/11/19 07:30 Glucose (Fingerstick) 150 mg/dL (70-99) Sodium Level 136 mmol/L (136-145) Potassium Level 4.2 mmol/L (3.5-5.1) Chloride Level 103 mmol/L (98-107) Carbon Dioxide Level 26 mmol/L (21-32) Anion Gap 7 (6-14) Blood Urea Nitrogen 13 mg/dL (7-20) Creatinine 0.6 mg/dL (0.6-1.0) Estimated GFR (Cockcroft-Gault) 106.3 BUN/Creatinine Ratio 22 (6-20) Glucose Level 125 mg/dL (70-99) Calcium Level 9.4 mg/dL (8.5-10.1) Total Bilirubin 0.5 mg/dL (0.2-1.0) Aspartate Amino Transf (AST/SGOT) 16 U/L (15-37) Alanine Aminotransferase (ALT/SGPT) 15 U/L (14-59) Alkaline Phosphatase 129 U/L (46-116) Total Protein 5.1 g/dL (6.4-8.2) Albumin 1.1 g/dL (3.4-5.0) Albumin/Globulin Ratio 0.3 (1.0-1.7) Assessment and Plan Assessmemt and Plan Problems Medical Problems: (1) Acute pancreatitis Status: Acute (2) Cholelithiasis Status: Acute Comment Review of Relevant I have reviewed the following items kolby (where applicable) has been applied. Labs Laboratory Tests Test 11/09/19 13:32 11/09/19 17:43 11/10/19 01:25 11/10/19 06:00 Glucose (Fingerstick) 144 mg/dL (70-99) 134 mg/dL (70-99) 132 mg/dL (70-99) Sodium Level 134 mmol/L (136-145) Potassium Level 4.4 mmol/L (3.5-5.1) Chloride Level 102 mmol/L (98-107) Carbon Dioxide Level 28 mmol/L (21-32) Anion Gap 4 (6-14) Blood Urea Nitrogen 14 mg/dL (7-20) Creatinine 0.5 mg/dL (0.6-1.0) Estimated GFR (Cockcroft-Gault) 131.1 Glucose Level 121 mg/dL (70-99) Calcium Level 9.7 mg/dL (8.5-10.1) Phosphorus Level 4.1 mg/dL (2.6-4.7) Magnesium Level 1.9 mg/dL (1.8-2.4) Triglycerides Level 181 mg/dL (0-150) Test 11/10/19 06:04 11/10/19 09:00 11/10/19 12:26 11/10/19 18:12 Glucose (Fingerstick) 117 mg/dL (70-99) 143 mg/dL (70-99) 126 mg/dL (70-99) White Blood Count 18.4 x10^3/uL (4.0-11.0) Red Blood Count 2.92 x10^6/uL (3.50-5.40) Hemoglobin 8.2 g/dL (12.0-15.5) Hematocrit 25.0 % (36.0-47.0) Mean Corpuscular Volume 86 fL (79-100) Mean Corpuscular Hemoglobin 28 pg (25-35) Mean Corpuscular Hemoglobin Concent 33 g/dL (31-37) Red Cell Distribution Width 15.6 % (11.5-14.5) Platelet Count 532 x10^3/uL (140-400) Neutrophils (%) (Auto) 85 % (31-73) Lymphocytes (%) (Auto) 6 % (24-48) Monocytes (%) (Auto) 5 % (0-9) Eosinophils (%) (Auto) 3 % (0-3) Basophils (%) (Auto) 1 % (0-3) Neutrophils # (Auto) 15.7 x10^3/uL (1.8-7.7) Lymphocytes # (Auto) 1.2 x10^3/uL (1.0-4.8) Monocytes # (Auto) 0.9 x10^3/uL (0.0-1.1) Eosinophils # (Auto) 0.6 x10^3/uL (0.0-0.7) Basophils # (Auto) 0.1 x10^3/uL (0.0-0.2) Test 11/11/19 00:02 11/11/19 06:00 11/11/19 06:21 11/11/19 07:30 Glucose (Fingerstick) 138 mg/dL (70-99) 150 mg/dL (70-99) White Blood Count 16.9 x10^3/uL (4.0-11.0) Red Blood Count 2.66 x10^6/uL (3.50-5.40) Hemoglobin 7.9 g/dL (12.0-15.5) Hematocrit 24.3 % (36.0-47.0) Mean Corpuscular Volume 91 fL (79-100) Mean Corpuscular Hemoglobin 30 pg (25-35) Mean Corpuscular Hemoglobin Concent 32 g/dL (31-37) Red Cell Distribution Width 16.7 % (11.5-14.5) Platelet Count 569 x10^3/uL (140-400) Neutrophils (%) (Auto) 83 % (31-73) Lymphocytes (%) (Auto) 9 % (24-48) Monocytes (%) (Auto) 6 % (0-9) Eosinophils (%) (Auto) 2 % (0-3) Basophils (%) (Auto) 1 % (0-3) Neutrophils # (Auto) 14.1 x10^3/uL (1.8-7.7) Lymphocytes # (Auto) 1.5 x10^3/uL (1.0-4.8) Monocytes # (Auto) 1.0 x10^3/uL (0.0-1.1) Eosinophils # (Auto) 0.3 x10^3/uL (0.0-0.7) Basophils # (Auto) 0.1 x10^3/uL (0.0-0.2) Sodium Level 136 mmol/L (136-145) Potassium Level 4.2 mmol/L (3.5-5.1) Chloride Level 103 mmol/L (98-107) Carbon Dioxide Level 26 mmol/L (21-32) Anion Gap 7 (6-14) Blood Urea Nitrogen 13 mg/dL (7-20) Creatinine 0.6 mg/dL (0.6-1.0) Estimated GFR (Cockcroft-Gault) 106.3 BUN/Creatinine Ratio 22 (6-20) Glucose Level 125 mg/dL (70-99) Calcium Level 9.4 mg/dL (8.5-10.1) Total Bilirubin 0.5 mg/dL (0.2-1.0) Aspartate Amino Transf (AST/SGOT) 16 U/L (15-37) Alanine Aminotransferase (ALT/SGPT) 15 U/L (14-59) Alkaline Phosphatase 129 U/L (46-116) Total Protein 5.1 g/dL (6.4-8.2) Albumin 1.1 g/dL (3.4-5.0) Albumin/Globulin Ratio 0.3 (1.0-1.7) Laboratory Tests Test 11/10/19 12:26 11/10/19 18:12 11/11/19 00:02 11/11/19 06:00 Glucose (Fingerstick) 143 mg/dL (70-99) 126 mg/dL (70-99) 138 mg/dL (70-99) White Blood Count 16.9 x10^3/uL (4.0-11.0) Red Blood Count 2.66 x10^6/uL (3.50-5.40) Hemoglobin 7.9 g/dL (12.0-15.5) Hematocrit 24.3 % (36.0-47.0) Mean Corpuscular Volume 91 fL (79-100) Mean Corpuscular Hemoglobin 30 pg (25-35) Mean Corpuscular Hemoglobin Concent 32 g/dL (31-37) Red Cell Distribution Width 16.7 % (11.5-14.5) Platelet Count 569 x10^3/uL (140-400) Neutrophils (%) (Auto) 83 % (31-73) Lymphocytes (%) (Auto) 9 % (24-48) Monocytes (%) (Auto) 6 % (0-9) Eosinophils (%) (Auto) 2 % (0-3) Basophils (%) (Auto) 1 % (0-3) Neutrophils # (Auto) 14.1 x10^3/uL (1.8-7.7) Lymphocytes # (Auto) 1.5 x10^3/uL (1.0-4.8) Monocytes # (Auto) 1.0 x10^3/uL (0.0-1.1) Eosinophils # (Auto) 0.3 x10^3/uL (0.0-0.7) Basophils # (Auto) 0.1 x10^3/uL (0.0-0.2) Test 11/11/19 06:21 11/11/19 07:30 Glucose (Fingerstick) 150 mg/dL (70-99) Sodium Level 136 mmol/L (136-145) Potassium Level 4.2 mmol/L (3.5-5.1) Chloride Level 103 mmol/L (98-107) Carbon Dioxide Level 26 mmol/L (21-32) Anion Gap 7 (6-14) Blood Urea Nitrogen 13 mg/dL (7-20) Creatinine 0.6 mg/dL (0.6-1.0) Estimated GFR (Cockcroft-Gault) 106.3 BUN/Creatinine Ratio 22 (6-20) Glucose Level 125 mg/dL (70-99) Calcium Level 9.4 mg/dL (8.5-10.1) Total Bilirubin 0.5 mg/dL (0.2-1.0) Aspartate Amino Transf (AST/SGOT) 16 U/L (15-37) Alanine Aminotransferase (ALT/SGPT) 15 U/L (14-59) Alkaline Phosphatase 129 U/L (46-116) Total Protein 5.1 g/dL (6.4-8.2) Albumin 1.1 g/dL (3.4-5.0) Albumin/Globulin Ratio 0.3 (1.0-1.7) Microbiology 11/08/19 Blood Culture - Preliminary, Resulted NO GROWTH AFTER 2 DAYS 11/08/19 Gram Stain - Final, Resulted 11/08/19 Aerobic and Anaerobic Culture - Preliminary, Resulted 11/06/19 Gram Stain Evaluation - Final, Complete 11/06/19 Respiratory Culture - Final, Complete 11/06/19 Antimicrobic Susceptibility - Final, Complete 10/18/19 Gram Stain - Final, Complete 10/18/19 Aerobic and Anaerobic Culture - Final, Complete 10/18/19 Antimicrobic Susceptibility - Final, Complete 09/25/19 Urine Culture - Final, Complete 09/17/19 Gram Stain - Final, Complete 09/17/19 Aerobic Culture - Final, Complete Medications Current Medications Sodium Chloride 1,000 ml @ 1,000 mls/hr Q1H IV Last administered on 07/04/19at 03:00; Start 07/04/19 at 03:00; Stop 07/04/19 at 03:59; Status DC Ondansetron HCl (Zofran) 4 mg 1X ONCE IVP Last administered on 07/04/19at 03:27; Start 07/04/19 at 03:00; Stop 07/04/19 at 03:01; Status DC Morphine Sulfate (Morphine Sulfate) 4 mg 1X ONCE IV ; Start 07/04/19 at 03:00; Stop 07/04/19 at 03:01; Status Cancel Ketorolac Tromethamine (Toradol 30mg Vial) 30 mg 1X ONCE IV Last administered on 07/04/19at 02:54; Start 07/04/19 at 03:00; Stop 07/04/19 at 03:01; Status DC Fentanyl Citrate (Fentanyl 2ml Vial) 25 mcg 1X ONCE IVP Last administered on 07/04/19at 03:23; Start 07/04/19 at 03:30; Stop 07/04/19 at 03:31; Status DC Fentanyl Citrate (Fentanyl 2ml Vial) 100 mcg STK-MED ONCE .ROUTE ; Start 07/04/19 at 03:18; Stop 07/04/19 at 03:18; Status DC Iohexol (Omnipaque 350 Mg/ml) 90 ml 1X ONCE IV Last administered on 07/04/19at 03:25; Start 07/04/19 at 03:30; Stop 07/04/19 at 03:31; Status DC Info (CONTRAST GIVEN -- Rx MONITORING) 1 each PRN DAILY PRN MC SEE COMMENTS; Start 07/04/19 at 03:30; Stop 07/06/19 at 03:29; Status DC Hydromorphone HCl (Dilaudid) 0.5 mg 1X ONCE IV Last administered on 07/04/19at 03:55; Start 07/04/19 at 04:30; Stop 07/04/19 at 04:32; Status DC Ondansetron HCl (Zofran) 4 mg PRN Q8HRS PRN IV NAUSEA/VOMITING 1ST CHOICE; Start 07/04/19 at 05:00; Stop 07/04/19 at 09:27; Status DC Morphine Sulfate (Morphine Sulfate) 2 mg PRN Q2HR PRN IV SEVERE PAIN 7-10 Last administered on 07/05/19at 12:26; Start 07/04/19 at 05:00; Stop 07/05/19 at 14:15; Status DC Sodium Chloride 1,000 ml @ 125 mls/hr Q8H IV Last administered on 07/04/19at 20:56; Start 07/04/19 at 05:00; Stop 07/05/19 at 04:59; Status DC Hydromorphone HCl (Dilaudid) 0.5 mg PRN Q3HRS PRN IV SEVERE PAIN 7-10 Last administered on 07/05/19at 10:06; Start 07/04/19 at 05:00; Stop 07/05/19 at 12:01; Status DC Piperacillin Sod/ Tazobactam Sod 4.5 gm/Sodium Chloride 100 ml @ 200 mls/hr 1X ONCE IV Last administered on 07/04/19at 05:44; Start 07/04/19 at 06:00; Stop 07/04/19 at 06:29; Status DC Ondansetron HCl (Zofran) 4 mg PRN Q4HRS PRN IV NAUSEA/VOMITING 1ST CHOICE Last administered on 11/10/19at 20:49; Start 07/04/19 at 09:30 Insulin Human Lispro (HumaLOG) 0-9 UNITS Q6HRS SQ Last administered on 11/07/19at 14:42; Start 07/04/19 at 09:30 Dextrose (Dextrose 50%-Water Syringe) 12.5 gm PRN Q15MIN PRN IV SEE COMMENTS; Start 07/04/19 at 09:30 Pantoprazole Sodium (PROTONIX VIAL for IV PUSH) 40 mg DAILYAC IVP Last administered on 11/11/19at 07:26; Start 07/04/19 at 11:30 Prochlorperazine Edisylate (Compazine) 10 mg PRN Q6HRS PRN IV NAUSEA/VOMITING, 2nd CHOICE Last administered on 11/10/19at 13:45; Start 07/04/19 at 17:45 Atenolol (Tenormin) 100 mg DAILY PO ; Start 07/05/19 at 09:00; Stop 07/04/19 at 20:08; Status DC Metoprolol Tartrate (Lopressor Vial) 2.5 mg Q6HRS IVP Last administered on 07/05/19at 05:51; Start 07/04/19 at 20:15; Stop 07/05/19 at 10:02; Status DC Metoprolol Tartrate (Lopressor Vial) 5 mg Q6HRS IVP Last administered on 07/14/19at 00:12; Start 07/05/19 at 10:15; Stop 07/16/19 at 08:48; Status DC Hydromorphone HCl (Dilaudid) 1 mg PRN Q3HRS PRN IV SEVERE PAIN 7-10 Last administered on 07/11/19at 05:13; Start 07/05/19 at 12:00; Stop 07/19/19 at 00:25; Status DC Lidocaine HCl (Buffered Lidocaine 1%) 3 ml STK-MED ONCE .ROUTE ; Start 07/05/19 at 12:55; Stop 07/05/19 at 12:56; Status DC Albumin Human 500 ml @ 125 mls/hr 1X ONCE IV Last administered on 07/05/19at 14:33; Start 07/05/19 at 14:30; Stop 07/05/19 at 18:32; Status DC Norepinephrine Bitartrate 8 mg/ Dextrose 258 ml @ 17.299 mls/ hr CONT PRN IV PER PROTOCOL Last administered on 08/02/19at 12:48; Start 07/05/19 at 15:30; Stop 08/05/19 at 09:19; Status DC Sodium Chloride 1,000 ml @ 125 mls/hr Q8H IV Last administered on 07/05/19at 21:04; Start 07/05/19 at 16:00; Stop 07/06/19 at 02:42; Status DC Albumin Human 500 ml @ 125 mls/hr PRN BID PRN IV After every 2L NSS & BP < 90mm Last administered on 10/18/19at 16:06; Start 07/05/19 at 16:00; Stop 10/21/19 at 09:30; Status DC Iohexol (Omnipaque 300 Mg/ml) 60 ml 1X ONCE IV Last administered on 07/05/19at 17:20; Start 07/05/19 at 17:00; Stop 07/05/19 at 17:01; Status DC Info (CONTRAST GIVEN -- Rx MONITORING) 1 each PRN DAILY PRN MC SEE COMMENTS; Start 07/05/19 at 17:00; Stop 07/07/19 at 16:59; Status DC Meropenem 1 gm/ Sodium Chloride 100 ml @ 200 mls/hr Q8HRS IV Last administered on 07/06/19at 05:45; Start 07/05/19 at 20:00; Stop 07/06/19 at 08:48; Status DC Furosemide (Lasix) 40 mg 1X ONCE IVP Last administered on 07/05/19at 22:12; Start 07/05/19 at 22:30; Stop 07/05/19 at 22:31; Status DC Calcium Chloride 1000 mg/Sodium Chloride 110 ml @ 220 mls/hr 1X ONCE IV Last administered on 07/05/19at 22:11; Start 07/05/19 at 22:30; Stop 07/05/19 at 22:59; Status DC Albuterol Sulfate (Ventolin Neb Soln) 2.5 mg 1X ONCE NEB Last administered on 07/06/19at 00:56; Start 07/05/19 at 22:30; Stop 07/05/19 at 22:31; Status DC Insulin Human Regular (HumuLIN R VIAL) 5 unit 1X ONCE IV Last administered on 07/05/19at 22:14; Start 07/05/19 at 22:30; Stop 07/05/19 at 22:31; Status DC Magnesium Sulfate 50 ml @ 25 mls/hr 1X ONCE IV Last administered on 07/06/19at 02:57; Start 07/06/19 at 03:00; Stop 07/06/19 at 04:59; Status DC Calcium Gluconate 1000 mg/Sodium Chloride 110 ml @ 220 mls/hr 1X ONCE IV Last administered on 07/06/19at 02:46; Start 07/06/19 at 03:00; Stop 07/06/19 at 03:29; Status DC Sodium Chloride 1,000 ml @ 200 mls/hr Q5H IV Last administered on 07/06/19at 02:46; Start 07/06/19 at 03:00; Stop 07/06/19 at 10:21; Status DC Calcium Gluconate 1000 mg/Sodium Chloride 110 ml @ 220 mls/hr 1X ONCE IV Last administered on 07/06/19at 03:21; Start 07/06/19 at 03:30; Stop 07/06/19 at 03:59; Status DC Sodium Bicarbonate 50 meq/Sodium Chloride 1,050 ml @ 75 mls/hr Q14H IV Last administered on 07/10/19at 21:10; Start 07/06/19 at 07:30; Stop 07/11/19 at 10:28; Status DC Calcium Gluconate 2000 mg/Sodium Chloride 120 ml @ 220 mls/hr 1X ONCE IV Last administered on 07/06/19at 09:05; Start 07/06/19 at 07:30; Stop 07/06/19 at 08:02; Status DC Lidocaine HCl (Xylocaine-Mpf 1% 2ml Vial) 2 ml STK-MED ONCE .ROUTE ; Start 07/06/19 at 08:47; Stop 07/06/19 at 08:47; Status DC Meropenem 500 mg/ Sodium Chloride 50 ml @ 100 mls/hr Q12HR IV Last administered on 07/11/19at 21:01; Start 07/06/19 at 18:00; Stop 07/12/19 at 07:58; Status DC Lidocaine HCl (Buffered Lidocaine 1%) 3 ml STK-MED ONCE .ROUTE ; Start 07/06/19 at 09:46; Stop 07/06/19 at 09:46; Status DC Lidocaine HCl (Buffered Lidocaine 1%) 6 ml 1X ONCE INJ Last administered on 07/06/19at 10:26; Start 07/06/19 at 10:15; Stop 07/06/19 at 10:16; Status DC Info (Tpn Per Pharmacy) 1 each PRN DAILY PRN MC SEE COMMENTS Last administered on 11/10/19at 11:42; Start 07/06/19 at 12:00 Sodium Chloride 1,000 ml @ 1,000 mls/hr Q1H PRN IV hypotension; Start 07/06/19 at 12:07; Stop 07/06/19 at 18:06; Status DC Diphenhydramine HCl (Benadryl) 25 mg 1X PRN PRN IV ITCHING; Start 07/06/19 at 12:15; Stop 07/07/19 at 12:14; Status DC Diphenhydramine HCl (Benadryl) 25 mg 1X PRN PRN IV ITCHING; Start 07/06/19 at 12:15; Stop 07/07/19 at 12:14; Status DC Sodium Chloride 1,000 ml @ 400 mls/hr Q2H30M PRN IV PATENCY; Start 07/06/19 at 12:07; Stop 07/07/19 at 00:06; Status DC Info (PHARMACY MONITORING -- do not chart) 1 each PRN DAILY PRN MC SEE COMMENTS; Start 07/06/19 at 12:15; Stop 07/08/19 at 08:13; Status DC Sodium Chloride 90 meq/Calcium Gluconate 10 meq/ Multivitamins 10 ml/Chromium/ Copper/Manganese/ Seleni/Zn 1 ml/ Total Parenteral Nutrition/Amino Acids/Dextrose/ Fat Emulsion Intravenous 55.005 ml @ 2.292 mls/hr TPN CONT IV ; Start 07/06/19 at 22:00; Stop 07/06/19 at 12:33; Status DC Info (Tpn Per Pharmacy) 1 each PRN DAILY PRN MC SEE COMMENTS; Start 07/06/19 at 12:30; Status UNV Sodium Chloride 90 meq/Calcium Gluconate 10 meq/ Multivitamins 10 ml/Chromium/ C opper/Manganese/ Seleni/Zn 0.5 ml/ Total Parenteral Nutrition/Amino Acids/Dextrose/ Fat Emulsion Intravenous 1,512 ml @ 63 mls/hr TPN CONT IV Last administered on 07/06/19at 22:06; Start 07/06/19 at 22:00; Stop 07/07/19 at 21:59; Status DC Calcium Carbonate/ Glycine (Tums) 500 mg PRN AFTMEALHC PRN PO INDIGESTION; Start 07/06/19 at 17:45; Stop 08/31/19 at 10:25; Status DC Calcium Gluconate (Calcium Gluconate) 2,000 mg 1X ONCE IVP Last administered on 07/07/19at 02:19; Start 07/07/19 at 02:15; Stop 07/07/19 at 02:16; Status DC Calcium Chloride 3000 mg/Sodium Chloride 1,030 ml @ 50 mls/hr [id number] IV Last administered on 07/09/19at 02:17; Start 07/07/19 at 08:00; Stop 07/09/19 at 15:23; Status DC Lorazepam (Ativan Inj) 1 mg PRN Q4HRS PRN IVP ANXIETY / AGITATION, 2nd choic Last administered on 08/05/19at 03:51; Start 07/07/19 at 09:00; Stop 08/05/19 at 09:19; Status DC Sodium Chloride 1,000 ml @ 1,000 mls/hr Q1H PRN IV hypotension; Start 07/07/19 at 08:56; Stop 07/07/19 at 14:55; Status DC Albumin Human 200 ml @ 200 mls/hr 1X PRN PRN IV Hypotension; Start 07/07/19 at 09:00; Stop 07/07/19 at 14:59; Status DC Diphenhydramine HCl (Benadryl) 25 mg 1X PRN PRN IV ITCHING; Start 07/07/19 at 09:00; Stop 07/08/19 at 08:59; Status DC Diphenhydramine HCl (Benadryl) 25 mg 1X PRN PRN IV ITCHING; Start 07/07/19 at 09:00; Stop 07/08/19 at 08:59; Status DC Sodium Chloride 1,000 ml @ 400 mls/hr Q2H30M PRN IV PATENCY; Start 07/07/19 at 08:56; Stop 07/07/19 at 20:55; Status DC Info (PHARMACY MONITORING -- do not chart) 1 each PRN DAILY PRN MC SEE COMMENTS; Start 07/07/19 at 09:00; Status UNV Info (PHARMACY MONITORING -- do not chart) 1 each PRN DAILY PRN MC SEE COMMENTS; Start 07/07/19 at 09:00; Stop 07/08/19 at 08:13; Status DC Digoxin (Lanoxin) 500 mcg 1X ONCE IV Last administered on 07/07/19at 10:04; Start 07/07/19 at 10:00; Stop 07/07/19 at 10:01; Status DC Digoxin (Lanoxin) 125 mcg 1X ONCE IV Last administered on 07/07/19at 17:10; Start 07/07/19 at 18:00; Stop 07/07/19 at 18:01; Status DC Magnesium Sulfate 100 ml @ 25 mls/hr 1X ONCE IV Last administered on 07/07/19at 12:48; Start 07/07/19 at 13:00; Stop 07/07/19 at 16:59; Status DC Sodium Chloride 90 meq/Magnesium Sulfate 10 meq/ Calcium Gluconate 20 meq/ Multivitamins 10 ml/Chromium/ Copper/Manganese/ Seleni/Zn 0.5 ml/ Total Parenteral Nutrition/Amino Acids/Dextrose/ Fat Emulsion Intravenous 1,512 ml @ 63 mls/hr TPN CONT IV Last administered on 07/07/19at 22:25; Start 07/07/19 at 22:00; Stop 07/08/19 at 21:59; Status DC Sodium Chloride 1,000 ml @ 1,000 mls/hr Q1H PRN IV hypotension; Start 07/08/19 at 08:05; Stop 07/08/19 at 14:04; Status DC Albumin Human 200 ml @ 200 mls/hr 1X ONCE IV Last administered on 07/08/19at 08:57; Start 07/08/19 at 08:15; Stop 07/08/19 at 09:14; Status DC Diphenhydramine HCl (Benadryl) 25 mg 1X PRN PRN IV ITCHING; Start 07/08/19 at 08:15; Stop 07/09/19 at 08:14; Status DC Diphenhydramine HCl (Benadryl) 25 mg 1X PRN PRN IV ITCHING; Start 07/08/19 at 08:15; Stop 07/09/19 at 08:14; Status DC Sodium Chloride 1,000 ml @ 400 mls/hr Q2H30M PRN IV PATENCY; Start 07/08/19 at 08:05; Stop 07/08/19 at 20:04; Status DC Info (PHARMACY MONITORING -- do not chart) 1 each PRN DAILY PRN MC SEE COMMENTS; Start 07/08/19 at 08:15; Stop 07/12/19 at 07:57; Status DC Sodium Chloride 90 meq/Potassium Chloride 15 meq/ Potassium Phosphate 10 mmol/ Magnesium Sulfate 10 meq/Calcium Gluconate 20 meq/ Multivitamins 10 ml/Chromium/ Copper/Manganese/ Seleni/Zn 0.5 ml/ Total Parenteral Nutrition/Amino Acids/Dextrose/ Fat Emulsion Intravenous 1,512 ml @ 63 mls/hr TPN CONT IV Last administered on 07/08/19at 21:01; Start 07/08/19 at 22:00; Stop 07/09/19 at 21:59; Status DC Potassium Chloride/Water 100 ml @ 100 mls/hr 1X ONCE IV Last administered on 07/08/19at 14:09; Start 07/08/19 at 14:00; Stop 07/08/19 at 14:59; Status DC Benzocaine (Hurricaine One) 1 spray 1X ONCE MM Last administered on 07/08/19at 16:38; Start 07/08/19 at 14:30; Stop 07/08/19 at 14:31; Status DC Lidocaine HCl (Glydo (Lidocaine) Jelly) 1 ramu 1X ONCE MM Last administered on 07/08/19at 16:38; Start 07/08/19 at 14:30; Stop 07/08/19 at 14:31; Status DC Linezolid/Dextrose 300 ml @ 300 mls/hr Q12HR IV Last administered on 07/14/19at 21:04; Start 07/08/19 at 20:00; Stop 07/15/19 at 07:50; Status DC Acetaminophen (Tylenol) 650 mg PRN Q6HRS PRN PO MILD PAIN / TEMP; Start 07/09/19 at 03:30; Stop 07/09/19 at 03:36; Status DC Acetaminophen (Tylenol) 650 mg PRN Q6HRS PRN PEG MILD PAIN / TEMP Last administered on 08/04/19at 19:56; Start 07/09/19 at 03:36; Stop 08/31/19 at 10:25; Status DC Sodium Chloride 1,000 ml @ 1,000 mls/hr Q1H PRN IV hypotension; Start 07/09/19 at 07:50; Stop 07/09/19 at 13:49; Status DC Albumin Human 200 ml @ 200 mls/hr 1X PRN PRN IV Hypotension; Start 07/09/19 at 08:00; Stop 07/09/19 at 13:59; Status DC Sodium Chloride (Normal Saline Flush) 10 ml 1X PRN PRN IV AP catheter pack; Start 07/09/19 at 08:00; Stop 07/10/19 at 07:59; Status DC Sodium Chloride (Normal Saline Flush) 10 ml 1X PRN PRN IV PC SUPPORT SPECIALIST catheter pack; Start 07/09/19 at 08:00; Stop 07/10/19 at 07:59; Status DC Sodium Chloride 1,000 ml @ 400 mls/hr Q2H30M PRN IV PATENCY; Start 07/09/19 at 07:50; Stop 07/09/19 at 19:49; Status DC Info (PHARMACY MONITORING -- do not chart) 1 each PRN DAILY PRN MC SEE COMMENTS; Start 07/09/19 at 08:00; Status UNV Info (PHARMACY MONITORING -- do not chart) 1 each PRN DAILY PRN MC SEE COMMENTS; Start 07/09/19 at 08:00; Stop 07/11/19 at 08:25; Status DC Sodium Chloride 90 meq/Potassium Chloride 15 meq/ Potassium Phosphate 10 mmol/ Magnesium Sulfate 10 meq/Calcium Gluconate 20 meq/ Multivitamins 10 ml/Chromium/ Copper/Manganese/ Seleni/Zn 0.5 ml/ Total Parenteral Nutrition/Amino Acids/Dextrose/ Fat Emulsion Intravenous 1,512 ml @ 63 mls/hr TPN CONT IV Last administered on 07/09/19at 20:57; Start 07/09/19 at 22:00; Stop 07/10/19 at 21:59; Status DC Sodium Chloride 90 meq/Potassium Chloride 15 meq/ Potassium Phosphate 15 mmol/ Magnesium Sulfate 10 meq/Calcium Gluconate 20 meq/ Multivitamins 10 ml/Chromium/ Copper/Manganese/ Seleni/Zn 0.5 ml/ Total Parenteral Nutrition/Amino Acids/Dextrose/ Fat Emulsion Intravenous 1,512 ml @ 63 mls/hr TPN CONT IV ; Start 07/10/19 at 22:00; Stop 07/10/19 at 14:16; Status DC Sodium Chloride 90 meq/Potassium Chloride 15 meq/ Potassium Phosphate 15 mmol/ Magnesium Sulfate 10 meq/Calcium Gluconate 20 meq/ Multivitamins 10 ml/Chromium/ Copper/Manganese/ Seleni/Zn 0.5 ml/ Total Parenteral Nutrition/Amino Acids/Dex trose/ Fat Emulsion Intravenous 1,200 ml @ 50 mls/hr TPN CONT IV ; Start 07/10/19 at 22:00; Stop 07/10/19 at 14:17; Status DC Sodium Chloride 90 meq/Potassium Chloride 15 meq/ Potassium Phosphate 10 mmol/ Magnesium Sulfate 10 meq/Calcium Gluconate 20 meq/ Multivitamins 10 ml/Chromium/ Copper/Manganese/ Seleni/Zn 0.5 ml/ Total Parenteral Nutrition/Amino Acids/Dextrose/ Fat Emulsion Intravenous 1,200 ml @ 50 mls/hr TPN CONT IV Last administered on 07/10/19at 23:29; Start 07/10/19 at 22:00; Stop 07/11/19 at 21:59; Status DC Sodium Chloride 1,000 ml @ 1,000 mls/hr Q1H PRN IV hypotension; Start 07/11/19 at 07:28; Stop 07/11/19 at 13:27; Status DC Albumin Human 200 ml @ 200 mls/hr 1X ONCE IV Last administered on 07/11/19at 08:51; Start 07/11/19 at 07:30; Stop 07/11/19 at 08:29; Status DC Diphenhydramine HCl (Benadryl) 25 mg 1X PRN PRN IV ITCHING; Start 07/11/19 at 07:30; Stop 07/12/19 at 07:29; Status DC Diphenhydramine HCl (Benadryl) 25 mg 1X PRN PRN IV ITCHING; Start 07/11/19 at 07:30; Stop 07/12/19 at 07:29; Status DC Sodium Chloride 1,000 ml @ 400 mls/hr Q2H30M PRN IV PATENCY; Start 07/11/19 at 07:28; Stop 07/11/19 at 19:27; Status DC Info (PHARMACY MONITORING -- do not chart) 1 each PRN DAILY PRN MC SEE COMMENTS; Start 07/11/19 at 07:30; Stop 07/22/19 at 13:01; Status DC Metronidazole 100 ml @ 100 mls/hr Q6HRS IV Last administered on 07/27/19at 06:26; Start 07/11/19 at 08:30; Stop 07/27/19 at 09:58; Status DC Micafungin Sodium 100 mg/Dextrose 100 ml @ 100 mls/hr Q24H IV Last administered on 08/18/19at 08:18; Start 07/11/19 at 09:00; Stop 08/18/19 at 20:58; Status DC Propofol 0 ml @ As Directed STK-MED ONCE IV ; Start 07/11/19 at 07:53; Stop 07/11/19 at 07:53; Status DC Etomidate (Amidate) 20 mg STK-MED ONCE IV ; Start 07/11/19 at 07:53; Stop 07/11/19 at 07:54; Status DC Midazolam HCl (Versed) 5 mg STK-MED ONCE .ROUTE ; Start 07/11/19 at 07:57; Stop 07/11/19 at 07:57; Status DC Fentanyl Citrate 30 ml @ 0 mls/hr CONT PRN IV SEE PROTOCOL Last administered on 08/05/19at 06:12; Start 07/11/19 at 08:15; Stop 08/05/19 at 09:19; Status DC Artificial Tears (Artificial Tears) 1 drop PRN Q1HR PRN OU DRY EYE, 1st choice; Start 07/11/19 at 08:15; Stop 08/17/19 at 05:31; Status DC Midazolam HCl 50 mg/Sodium Chloride 50 ml @ 0 mls/hr CONT PRN IV SEE PROTOCOL Last administered on 07/14/19at 22:39; Start 07/11/19 at 08:15; Stop 07/16/19 at 15:59; Status DC Etomidate (Amidate) 8 mg 1X ONCE IV Last administered on 07/11/19at 08:33; Start 07/11/19 at 08:30; Stop 07/11/19 at 08:31; Status DC Succinylcholine Chloride (Anectine) 120 mg 1X ONCE IV Last administered on 07/11/19at 08:34; Start 07/11/19 at 08:30; Stop 07/11/19 at 08:31; Status DC Midazolam HCl (Versed) 5 mg 1X ONCE IV ; Start 07/11/19 at 08:30; Stop 07/11/19 at 08:31; Status DC Potassium Chloride 15 meq/ Bicarbonate Dialysis Soln w/ out KCl 5,007.5 ml @ 1,000 mls/ hr Q5H1M IV Last administered on 07/12/19at 11:11; Start 07/11/19 at 12:00; Stop 07/12/19 at 11:15; Status DC Potassium Chloride 15 meq/ Bicarbonate Dialysis Soln w/ out KCl 5,007.5 ml @ 1,000 mls/ hr Q5H1M IV Last administered on 07/12/19at 11:12; Start 07/11/19 at 12:00; Stop 07/12/19 at 11:17; Status DC Potassium Chloride 15 meq/ Bicarbonate Dialysis Soln w/ out KCl 5,007.5 ml @ 1,000 mls/ hr Q5H1M IV Last administered on 07/12/19at 11:11; Start 07/11/19 at 12:00; Stop 07/12/19 at 11:19; Status DC Sodium Chloride 90 meq/Potassium Chloride 15 meq/ Potassium Phosphate 10 mmol/ Magnesium Sulfate 10 meq/Calcium Gluconate 20 meq/ Multivitamins 10 ml/Chromium/ Copper/Manganese/ Seleni/Zn 0.5 ml/ Total Parenteral Nutrition/Amino Acids/Dextrose/ Fat Emulsion Intravenous 1,400 ml @ 58.333 mls/ hr TPN CONT IV Last administered on 07/11/19at 21:42; Start 07/11/19 at 22:00; Stop 07/12/19 at 21:59; Status DC Heparin Sodium (Porcine) (Heparin Sodium) 5,000 unit Q8HRS SQ Last administered on 07/16/19at 05:55; Start 07/11/19 at 15:00; Stop 07/16/19 at 13:28; Status DC Meropenem 500 mg/ Sodium Chloride 50 ml @ 100 mls/hr Q6HRS IV Last administered on 07/13/19at 06:00; Start 07/12/19 at 09:00; Stop 07/13/19 at 07:29; Status DC Potassium Phosphate 20 mmol/ Sodium Chloride 106.6667 ml @ 51.667 m... 1X ONCE IV Last administered on 07/12/19at 11:22; Start 07/12/19 at 10:15; Stop 07/12/19 at 12:18; Status DC Acetaminophen (Tylenol Supp) 650 mg PRN Q6HRS PRN HI MILD PAIN / TEMP > 100.3'F Last administered on 11/09/19at 20:53; Start 07/12/19 at 10:30 Potassium Chloride/Water 100 ml @ 100 mls/hr Q1H IV Last administered on 07/12/19at 12:12; Start 07/12/19 at 11:00; Stop 07/12/19 at 12:59; Status DC Potassium Chloride 20 meq/ Bicarbonate Dialysis Soln w/ out KCl 5,010 ml @ 1,000 mls/hr Q5H1M IV Last administered on 07/13/19at 08:48; Start 07/12/19 at 12:00; Stop 07/13/19 at 13:03; Status DC Potassium Chloride 20 meq/ Bicarbonate Dialysis Soln w/ out KCl 5,010 ml @ 1,000 mls/hr Q5H1M IV Last administered on 07/17/19at 14:52; Start 07/12/19 at 11:30; Stop 07/17/19 at 19:59; Status DC Potassium Chloride 20 meq/ Bicarbonate Dialysis Soln w/ out KCl 5,010 ml @ 1,000 mls/hr Q5H1M IV Last administered on 07/17/19at 14:53; Start 07/12/19 at 11:30; Stop 07/17/19 at 19:59; Status DC Sodium Chloride 90 meq/Potassium Chloride 15 meq/ Potassium Phosphate 15 mmol/ Magnesium Sulfate 10 meq/Calcium Gluconate 15 meq/ Multivitamins 10 ml/Chromium/ Copper/Manganese/ Seleni/Zn 0.5 ml/ Total Parenteral Nutrition/Amino Acids/Dextrose/ Fat Emulsion Intravenous 1,400 ml @ 58.333 mls/ hr TPN CONT IV Last administered on 07/12/19at 22:17; Start 07/12/19 at 22:00; Stop 07/13/19 at 21:59; Status DC Cefepime HCl (Maxipime) 2 gm Q12HR IVP Last administered on 07/26/19at 20:56; Start 07/13/19 at 09:00; Stop 07/27/19 at 09:58; Status DC Daptomycin 500 mg/ Sodium Chloride 50 ml @ 100 mls/hr Q48H IV Last administered on 07/29/19at 09:57; Start 07/13/19 at 08:30; Stop 07/29/19 at 10:07; Status DC Lidocaine HCl (Buffered Lidocaine 1%) 3 ml 1X ONCE INJ Last administered on 07/13/19at 10:27; Start 07/13/19 at 10:30; Stop 07/13/19 at 10:31; Status DC Potassium Phosphate 20 mmol/ Sodium Chloride 106.6667 ml @ 51.667 m... 1X ONCE IV Last administered on 07/13/19at 12:51; Start 07/13/19 at 13:00; Stop 07/13/19 at 15:03; Status DC Sodium Chloride 90 meq/Potassium Chloride 15 meq/ Potassium Phosphate 18 mmol/ Magnesium Sulfate 8 meq/Calcium Gluconate 15 meq/ Multivitamins 10 ml/Chromium/ Copper/Manganese/ Seleni/Zn 0.5 ml/ Total Parenteral Nutrition/Amino Acids/Dextrose/ Fat Emulsion Intravenous 1,400 ml @ 58.333 mls/ hr TPN CONT IV Last administered on 07/13/19at 22:16; Start 07/13/19 at 22:00; Stop 07/14/19 at 21:59; Status DC Potassium Chloride 20 meq/ Bicarbonate Dialysis Soln w/ out KCl 5,010 ml @ 1,000 mls/hr Q5H1M IV Last administered on 07/17/19at 14:54; Start 07/13/19 at 16:00; Stop 07/17/19 at 19:59; Status DC Multi-Ingred Cream/Lotion/Oil/ Oint (Artificial Tears Eye Ointment) 1 ramu PRN Q1HR PRN OU DRY EYE, 2nd choice Last administered on 08/01/19at 08:19; Start 07/13/19 at 17:30; Stop 09/21/19 at 14:39; Status DC Sodium Chloride 90 meq/Potassium Chloride 15 meq/ Potassium Phosphate 18 mmol/ Magnesium Sulfate 8 meq/Calcium Gluconate 15 meq/ Multivitamins 10 ml/Chromium/ Copper/Manganese/ Seleni/Zn 0.5 ml/ Total Parenteral Nutrition/Amino Acids/Dex trose/ Fat Emulsion Intravenous 1,400 ml @ 58.333 mls/ hr TPN CONT IV Last administered on 07/14/19at 22:00; Start 07/14/19 at 22:00; Stop 07/15/19 at 21:59; Status DC Albumin Human 500 ml @ 125 mls/hr 1X ONCE IV ; Start 07/14/19 at 14:15; Stop 07/14/19 at 18:14; Status DC Sodium Chloride 90 meq/Potassium Chloride 15 meq/ Potassium Phosphate 18 mmol/ Magnesium Sulfate 8 meq/Calcium Gluconate 15 meq/ Multivitamins 10 ml/Chromium/ Copper/Manganese/ Seleni/Zn 0.5 ml/ Insulin Human Regular 10 unit/ Total Parenteral Nutrition/Amino Acids/Dextrose/ Fat Emulsion Intravenous 1,400 ml @ 58.333 mls/ hr TPN CONT IV Last administered on 07/15/19at 21:43; Start 07/15/19 at 22:00; Stop 07/16/19 at 21:59; Status DC Lidocaine HCl (Buffered Lidocaine 1%) 3 ml STK-MED ONCE .ROUTE ; Start 07/13/19 at 10:00; Stop 07/15/19 at 13:57; Status DC Midazolam HCl 100 mg/Sodium Chloride 100 ml @ 7 mls/hr CONT PRN IV SEE PROTOCOL Last administered on 07/27/19at 15:35; Start 07/16/19 at 16:00; Stop 09/21/19 at 14:38; Status DC Sodium Chloride 90 meq/Potassium Chloride 15 meq/ Potassium Phosphate 18 mmol/ Magnesium Sulfate 8 meq/Calcium Gluconate 15 meq/ Multivitamins 10 ml/Chromium/ Copper/Manganese/ Seleni/Zn 0.5 ml/ Insulin Human Regular 15 unit/ Total Parenteral Nutrition/Amino Acids/Dextrose/ Fat Emulsion Intravenous 1,400 ml @ 58.333 mls/ hr TPN CONT IV Last administered on 07/16/19at 20:34; Start at 22:00; Stop 07/17/19 at 21:59; Status DC Info (Icu Electrolyte Protocol) 1 ea CONT PRN PRN MC PER PROTOCOL; Start at 13:15 Sodium Chloride 90 meq/Potassium Chloride 15 meq/ Potassium Phosphate 18 mmol/ Magnesium Sulfate 8 meq/Calcium Gluconate 15 meq/ Multivitamins 10 ml/Chromium/ Copper/Manganese/ Seleni/Zn 0.5 ml/ Insulin Human Regular 15 unit/ Total Parenteral Nutrition/Amino Acids/Dextrose/ Fat Emulsion Intravenous 1,400 ml @ 58.333 mls/ hr TPN CONT IV Last administered on 07/17/19at 22:05; Start 07/17/19 at 22:00; Stop 07/18/19 at 21:59; Status DC Potassium Chloride 15 meq/ Bicarbonate Dialysis Soln w/ out KCl 5,007.5 ml @ 1,000 mls/ hr Q5H1M IV Last administered on 07/20/19at 18:14; Start 07/17/19 at 20:00; Stop 07/21/19 at 13:08; Status DC Potassium Chloride 15 meq/ Bicarbonate Dialysis Soln w/ out KCl 5,007.5 ml @ 1,000 mls/ hr Q5H1M IV Last administered on 07/20/19at 18:14; Start 07/17/19 at 20:00; Stop 07/21/19 at 13:08; Status DC Potassium Chloride 15 meq/ Bicarbonate Dialysis Soln w/ out KCl 5,007.5 ml @ 1,000 mls/ hr Q5H1M IV Last administered on 07/20/19at 18:14; Start 07/17/19 at 20:00; Stop 07/21/19 at 13:08; Status DC Iohexol (Omnipaque 240 Mg/ml) 30 ml 1X ONCE PO Last administered on 07/18/19at 11:30; Start 07/18/19 at 11:30; Stop 07/18/19 at 11:33; Status DC Info (CONTRAST GIVEN -- Rx MONITORING) 1 each PRN DAILY PRN MC SEE COMMENTS; Start 07/18/19 at 11:45; Stop 07/20/19 at 11:44; Status DC Sodium Chloride 90 meq/Potassium Chloride 15 meq/ Potassium Phosphate 18 mmol/ Magnesium Sulfate 8 meq/Calcium Gluconate 15 meq/ Multivitamins 10 ml/Chromium/ Copper/Manganese/ Seleni/Zn 0.5 ml/ Insulin Human Regular 15 unit/ Total Parenteral Nutrition/Amino Acids/Dextrose/ Fat Emulsion Intravenous 1,400 ml @ 58.333 mls/ hr TPN CONT IV Last administered on 07/18/19at 21:47; Start 07/18/19 at 22:00; Stop 07/19/19 at 21:59; Status DC Sodium Chloride 90 meq/Potassium Chloride 15 meq/ Potassium Phosphate 18 mmol/ Magnesium Sulfate 8 meq/Calcium Gluconate 15 meq/ Multivitamins 10 ml/Chromium/ Copper/Manganese/ Seleni/Zn 0.5 ml/ Insulin Human Regular 20 unit/ Total Parenteral Nutrition/Amino Acids/Dextrose/ Fat Emulsion Intravenous 1,400 ml @ 58.333 mls/ hr TPN CONT IV Last administered on 07/19/19at 21:36; Start 07/19/19 at 22:00; Stop 07/20/19 at 21:59; Status DC Alteplase, Recombinant (Cathflo For Central Catheter Clearance) 1 mg 1X ONCE INT CAT Last administered on 07/19/19at 20:03; Start 07/19/19 at 19:30; Stop 07/19/19 at 19:46; Status DC Alteplase, Recombinant (Cathflo For Central Catheter Clearance) 1 mg 1X ONCE INT CAT Last administered on 07/19/19at 22:05; Start 07/19/19 at 22:00; Stop 07/19/19 at 22:01; Status DC Sodium Chloride 90 meq/Potassium Chloride 15 meq/ Potassium Phosphate 18 mmol/ Magnesium Sulfate 8 meq/Calcium Gluconate 15 meq/ Multivitamins 10 ml/Chromium/ Copper/Manganese/ Seleni/Zn 0.5 ml/ Insulin Human Regular 20 unit/ Total Pare nteral Nutrition/Amino Acids/Dextrose/ Fat Emulsion Intravenous 1,400 ml @ 58.333 mls/ hr TPN CONT IV Last administered on 07/20/19at 21:30; Start 07/20/19 at 22:00; Stop 07/21/19 at 21:59; Status DC Dexmedetomidine HCl 400 mcg/ Sodium Chloride 100 ml @ 0 mls/hr CONT PRN IV ANXIETY / AGITATION Last administered on 09/17/19at 12:57; Start 07/21/19 at 08:15; Stop 09/17/19 at 18:31; Status DC Sodium Chloride 500 ml @ 500 mls/hr 1X PRN PRN IV ELEVATED BP, SEE COMMENTS; Start 07/21/19 at 08:15 Atropine Sulfate (ATROPINE 0.5mg SYRINGE) 0.5 mg PRN Q5MIN PRN IV SEE COMMENTS; Start 07/21/19 at 08:15 Furosemide (Lasix) 20 mg 1X ONCE IVP Last administered on 07/21/19at 08:19; Start 07/21/19 at 08:15; Stop 07/21/19 at 08:16; Status DC Lidocaine HCl (Buffered Lidocaine 1%) 3 ml STK-MED ONCE .ROUTE ; Start 07/21/19 at 08:39; Stop 07/21/19 at 08:39; Status DC Lidocaine HCl (Buffered Lidocaine 1%) 6 ml 1X ONCE INJ Last administered on 07/21/19at 09:05; Start 07/21/19 at 09:00; Stop 07/21/19 at 09:06; Status DC Sodium Chloride 90 meq/Potassium Chloride 15 meq/ Potassium Phosphate 18 mmol/ Magnesium Sulfate 8 meq/Calcium Gluconate 15 meq/ Multivitamins 10 ml/Chromium/ Copper/Manganese/ Seleni/Zn 0.5 ml/ Insulin Human Regular 20 unit/ Total Parenteral Nutrition/Amino Acids/Dextrose/ Fat Emulsion Intravenous 1,400 ml @ 58.333 mls/ hr TPN CONT IV Last administered on 07/21/19at 22:45; Start 07/21/19 at 22:00; Stop 07/22/19 at 21:59; Status DC Sodium Chloride 1,000 ml @ 1,000 mls/hr Q1H PRN IV hypotension; Start 07/22/19 at 07:30; Stop 07/22/19 at 13:29; Status DC Albumin Human 200 ml @ 200 mls/hr 1X PRN PRN IV Hypotension Last administered on 07/22/19at 09:36; Start 07/22/19 at 07:30; Stop 07/22/19 at 13:29; Status DC Sodium Chloride (Normal Saline Flush) 10 ml 1X PRN PRN IV AP catheter pack; Start 07/22/19 at 07:30; Stop 07/22/19 at 21:29; Status DC Sodium Chloride (Normal Saline Flush) 10 ml 1X PRN PRN IV PC SUPPORT SPECIALIST catheter pack; Start 07/22/19 at 07:30; Stop 07/23/19 at 07:29; Status DC Sodium Chloride 1,000 ml @ 400 mls/hr Q2H30M PRN IV PATENCY; Start 07/22/19 at 07:30; Stop 07/22/19 at 19:29; Status DC Info (PHARMACY MONITORING -- do not chart) 1 each PRN DAILY PRN MC SEE COMMENTS; Start 07/22/19 at 07:30; Stop 07/22/19 at 13:02; Status DC Info (PHARMACY MONITORING -- do not chart) 1 each PRN DAILY PRN MC SEE COMMENTS; Start 07/22/19 at 07:30; Stop 07/24/19 at 12:45; Status DC Sodium Chloride 90 meq/Potassium Chloride 15 meq/ Potassium Phosphate 10 mmol/ Magnesium Sulfate 8 meq/Calcium Gluconate 15 meq/ Multivitamins 10 ml/Chromium/ Copper/Manganese/ Seleni/Zn 0.5 ml/ Insulin Human Regular 25 unit/ Total Parenteral Nutrition/Amino Acids/Dextrose/ Fat Emulsion Intravenous 1,400 ml @ 58.333 mls/ hr TPN CONT IV Last administered on 07/22/19at 22:19; Start 07/22/19 at 22:00; Stop 07/23/19 at 21:59; Status DC Heparin Sodium (Porcine) (Heparin Sodium) 5,000 unit Q12HR SQ Last administered on 08/14/19at 08:59; Start 07/22/19 at 21:00; Stop 08/14/19 at 10:05; Status DC Ondansetron HCl (Zofran) 4 mg PRN Q6HRS PRN IV NAUSEA/VOMITING; Start 07/25/19 at 07:00; Stop 07/26/19 at 06:59; Status DC Fentanyl Citrate (Fentanyl 2ml Vial) 25 mcg PRN Q5MIN PRN IV MILD PAIN 1-3; Start 07/25/19 at 07:00; Stop 07/26/19 at 06:59; Status DC Fentanyl Citrate (Fentanyl 2ml Vial) 50 mcg PRN Q5MIN PRN IV MODERATE TO SEVERE PAIN; Start 07/25/19 at 07:00; Stop 07/26/19 at 06:59; Status DC Ringer's Solution 1,000 ml @ 30 mls/hr Q24H IV ; Start 07/25/19 at 07:00; Stop 07/25/19 at 18:59; Status DC Lidocaine HCl (Xylocaine-Mpf 1% 2ml Vial) 2 ml PRN 1X PRN ID PRIOR TO IV START; Start 07/25/19 at 07:00; Stop 07/26/19 at 06:59; Status DC Prochlorperazine Edisylate (Compazine) 5 mg PACU PRN PRN IV NAUSEA, MRX1; Start 07/25/19 at 07:00; Stop 07/26/19 at 06:59; Status DC Sodium Chloride 1,000 ml @ 1,000 mls/hr Q1H PRN IV hypotension; Start 07/23/19 at 09:10; Stop 07/23/19 at 15:09; Status DC Albumin Human 200 ml @ 200 mls/hr 1X PRN PRN IV Hypotension Last administered on 07/23/19at 10:10; Start 07/23/19 at 09:15; Stop 07/23/19 at 15:14; Status DC Sodium Chloride 1,000 ml @ 400 mls/hr Q2H30M PRN IV PATENCY; Start 07/23/19 at 09:10; Stop 07/23/19 at 21:09; Status DC Info (PHARMACY MONITORING -- do not chart) 1 each PRN DAILY PRN MC SEE COMMENTS; Start 07/23/19 at 09:15; Stop 07/24/19 at 12:45; Status DC Info (PHARMACY MONITORING -- do not chart) 1 each PRN DAILY PRN MC SEE COMMENTS; Start 07/23/19 at 09:15; Stop 07/24/19 at 12:45; Status DC Sodium Chloride 90 meq/Potassium Chloride 15 meq/ Potassium Phosphate 10 mmol/ Magnesium Sulfate 8 meq/Calcium Gluconate 15 meq/ Multivitamins 10 ml/Chromium/ Copper/Manganese/ Seleni/Zn 0.5 ml/ Insulin Human Regular 25 unit/ Total Parenteral Nutrition/Amino Acids/Dextrose/ Fat Emulsion Intravenous 1,400 ml @ 58.333 mls/ hr TPN CONT IV Last administered on 07/23/19at 22:10; Start 07/23/19 at 22:00; Stop 07/24/19 at 21:59; Status DC Magnesium Sulfate 50 ml @ 25 mls/hr PRN DAILY PRN IV for Mag < 1.7 on am labs Last administered on 10/06/19at 10:57; Start 07/24/19 at 09:15 Sodium Chloride 90 meq/Potassium Chloride 15 meq/ Potassium Phosphate 10 mmol/ Magnesium Sulfate 8 meq/Calcium Gluconate 15 meq/ Multivitamins 10 ml/Chromium/ Copper/Manganese/ Seleni/Zn 0.5 ml/ Insulin Human Regular 25 unit/ Total Parenteral Nutrition/Amino Acids/Dextrose/ Fat Emulsion Intravenous 1,400 ml @ 58.333 mls/ hr TPN CONT IV Last administered on 07/24/19at 21:20; Start 07/24/19 at 22:00; Stop 07/25/19 at 21:59; Status DC Sodium Chloride 1,000 ml @ 1,000 mls/hr Q1H PRN IV hypotension; Start 07/24/19 at 12:23; Stop 07/24/19 at 18:22; Status DC Albumin Human 200 ml @ 200 mls/hr 1X ONCE IV Last administered on 07/24/19at 13:34; Start 07/24/19 at 12:30; Stop 07/24/19 at 13:29; Status DC Diphenhydramine HCl (Benadryl) 25 mg 1X PRN PRN IV ITCHING; Start 07/24/19 at 12:30; Stop 07/25/19 at 12:29; Status DC Diphenhydramine HCl (Benadryl) 25 mg 1X PRN PRN IV ITCHING; Start 07/24/19 at 12:30; Stop 07/25/19 at 12:29; Status DC Info (PHARMACY MONITORING -- do not chart) 1 each PRN DAILY PRN MC SEE COMMENTS; Start 07/24/19 at 12:30; Status Cancel Bupivacaine HCl/ Epinephrine Bitart (Sensorcain-Epi 0.5%-1:[id number] Mpf) 30 ml STK-MED ONCE .ROUTE Last administered on 07/25/19at 11:44; Start 07/25/19 at 11:00; Stop 07/25/19 at 11:01; Status DC Cellulose (Surgicel Fibrillar 1x2) 1 each STK-MED ONCE .ROUTE ; Start 07/25/19 at 11:00; Stop 07/25/19 at 11:01; Status DC Sodium Chloride 90 meq/Potassium Chloride 15 meq/ Potassium Phosphate 10 mmol/ Magnesium Sulfate 12 meq/Calcium Gluconate 15 meq/ Multivitamins 10 ml/Chromium/ Copper/Manganese/ Seleni/Zn 0.5 ml/ Insulin Human Regular 25 unit/ Total Parenteral Nutrition/Amino Acids/Dextrose/ Fat Emulsion Intravenous 1,400 ml @ 58.333 mls/ hr TPN CONT IV Last administered on 07/25/19at 22:24; Start 07/25/19 at 22:00; Stop 07/26/19 at 21:59; Status DC Propofol 20 ml @ As Directed STK-MED ONCE IV ; Start 07/25/19 at 11:07; Stop 07/25/19 at 11:07; Status DC Cellulose (Surgicel Hemostat 4x8) 1 each STK-MED ONCE .ROUTE Last administered on 07/25/19at 11:44; Start 07/25/19 at 11:55; Stop 07/25/19 at 11:56; Status DC Sevoflurane (Ultane) 60 ml STK-MED ONCE IH ; Start 07/25/19 at 12:46; Stop 07/25/19 at 12:46; Status DC Sodium Chloride 1,000 ml @ 1,000 mls/hr Q1H PRN IV hypotension; Start 07/25/19 at 13:51; Stop 07/25/19 at 19:50; Status DC Albumin Human 200 ml @ 200 mls/hr 1X PRN PRN IV Hypotension Last administered on 07/25/19at 14:51; Start 07/25/19 at 14:00; Stop 07/25/19 at 19:59; Status DC Diphenhydramine HCl (Benadryl) 25 mg 1X PRN PRN IV ITCHING; Start 07/25/19 at 14:00; Stop 07/26/19 at 13:59; Status DC Diphenhydramine HCl (Benadryl) 25 mg 1X PRN PRN IV ITCHING; Start 07/25/19 at 14:00; Stop 07/26/19 at 13:59; Status DC Sodium Chloride 1,000 ml @ 400 mls/hr Q2H30M PRN IV PATENCY; Start 07/25/19 at 13:51; Stop 07/26/19 at 01:50; Status DC Info (PHARMACY MONITORING -- do not chart) 1 each PRN DAILY PRN MC SEE COMMENTS; Start 07/25/19 at 14:00; Stop 07/28/19 at 08:16; Status DC Heparin Sodium (Porcine) (Hep Lock Adult) 500 unit STK-MED ONCE IVP ; Start 07/26/19 at 09:29; Stop 07/26/19 at 09:30; Status DC Sodium Chloride 1,000 ml @ 1,000 mls/hr Q1H PRN IV hypotension; Start 07/26/19 at 10:43; Stop 07/26/19 at 16:42; Status DC Sodium Chloride 1,000 ml @ 400 mls/hr Q2H30M PRN IV PATENCY; Start 07/26/19 at 10:43; Stop 07/26/19 at 22:42; Status DC Info (PHARMACY MONITORING -- do not chart) 1 each PRN DAILY PRN MC SEE COMMENTS; Start 07/26/19 at 10:45; Status UNV Info (PHARMACY MONITORING -- do not chart) 1 each PRN DAILY PRN MC SEE COMMENTS; Start 07/26/19 at 10:45; Status UNV Sodium Chloride 90 meq/Potassium Chloride 15 meq/ Magnesium Sulfate 12 meq/Calcium Gluconate 15 meq/ Multivitamins 10 ml/Chromium/ Copper/Manganese/ Seleni/Zn 0.5 ml/ Insulin Human Regular 25 unit/ Total Parenteral Nutrition/Amino Acids/Dextrose/ Fat Emulsion Intravenous 1,400 ml @ 58.333 mls/ hr TPN CONT IV Last administered on 07/26/19at 22:13; Start 07/26/19 at 22:00; Stop 07/27/19 at 21:59; Status DC Sodium Chloride 1,000 ml @ 1,000 mls/hr Q1H PRN IV hypotension; Start 07/27/19 at 07:50; Stop 07/27/19 at 13:49; Status DC Albumin Human 200 ml @ 200 mls/hr 1X ONCE IV ; Start 07/27/19 at 08:00; Stop 07/27/19 at 08:53; Status DC Diphenhydramine HCl (Benadryl) 25 mg 1X PRN PRN IV ITCHING; Start 07/27/19 at 08:00; Stop 07/28/19 at 07:59; Status DC Diphenhydramine HCl (Benadryl) 25 mg 1X PRN PRN IV ITCHING; Start 07/27/19 at 08:00; Stop 07/28/19 at 07:59; Status DC Info (PHARMACY MONITORING -- do not chart) 1 each PRN DAILY PRN MC SEE COMMENTS; Start 07/27/19 at 08:00; Stop 07/28/19 at 08:16; Status DC Albumin Human 50 ml @ 50 mls/hr 1X ONCE IV ; Start 07/27/19 at 08:53; Stop 07/27/19 at 08:56; Status DC Albumin Human 200 ml @ 50 mls/hr PRN 1X PRN IV HYPOTENSION Last administered on 08/02/19at 11:54; Start 07/27/19 at 09:00; Stop 09/08/19 at 11:14; Status DC Meropenem 500 mg/ Sodium Chloride 50 ml @ 100 mls/hr Q12H IV Last administered on 08/16/19at 10:45; Start 07/27/19 at 10:00; Stop 08/16/19 at 12:37; Status DC Sodium Chloride 90 meq/Magnesium Sulfate 12 meq/ Calcium Gluconate 15 meq/ Multivitamins 10 ml/Chromium/ Copper/Manganese/ Seleni/Zn 0.5 ml/ Insulin Human Regular 25 unit/ Total Parenteral Nutrition/Amino Acids/Dextrose/ Fat Emulsion Intravenous 1,400 ml @ 58.333 mls/ hr TPN CONT IV Last administered on 07/27/19at 21:41; Start 07/27/19 at 22:00; Stop 07/28/19 at 21:59; Status DC Sodium Chloride 1,000 ml @ 1,000 mls/hr Q1H PRN IV hypotension; Start 07/28/19 at 07:58; Stop 07/28/19 at 13:57; Status DC Albumin Human 200 ml @ 200 mls/hr 1X PRN PRN IV Hypotension Last administered on 07/28/19at 09:30; Start 07/28/19 at 08:00; Stop 07/28/19 at 13:59; Status DC Sodium Chloride 1,000 ml @ 400 mls/hr Q2H30M PRN IV PATENCY; Start 07/28/19 at 07:58; Stop 07/28/19 at 19:57; Status DC Info (PHARMACY MONITORING -- do not chart) 1 each PRN DAILY PRN MC SEE COMMENTS; Start 07/28/19 at 08:00; Status Cancel Info (PHARMACY MONITORING -- do not chart) 1 each PRN DAILY PRN MC SEE COM MENTS; Start 07/28/19 at 08:15; Status UNV Sodium Chloride 90 meq/Potassium Phosphate 5 mmol/ Magnesium Sulfate 12 meq/Calcium Gluconate 15 meq/ Multivitamins 10 ml/Chromium/ Copper/Manganese/ Seleni/Zn 0.5 ml/ Insulin Human Regular 30 unit/ Total Parenteral Nutrition/Amino Acids/Dextrose/ Fat Emulsion Intravenous 1,400 ml @ 58.333 mls/ hr TPN CONT IV Last administered on 07/28/19at 22:08; Start 07/28/19 at 22:00; Stop 07/29/19 at 21:59; Status DC Linezolid/Dextrose 300 ml @ 300 mls/hr Q12HR IV Last administered on 08/08/19at 20:40; Start 07/29/19 at 11:00; Stop 08/09/19 at 08:10; Status DC Sodium Chloride 90 meq/Potassium Phosphate 15 mmol/ Magnesium Sulfate 12 meq/Calcium Gluconate 15 meq/ Multivitamins 10 ml/Chromium/ Copper/Manganese/ Seleni/Zn 0.5 ml/ Insulin Human Regular 30 unit/ Total Parenteral Nutrition/Amino Acids/Dextrose/ Fat Emulsion Intravenous 1,400 ml @ 58.333 mls/ hr TPN CONT IV Last administered on 07/29/19at 21:49; Start 07/29/19 at 22:00; Stop 07/30/19 at 21:59; Status DC Sodium Chloride 90 meq/Potassium Phosphate 15 mmol/ Magnesium Sulfate 12 meq/Calcium Gluconate 15 meq/ Multivitamins 10 ml/Chromium/ Copper/Manganese/ Seleni/Zn 0.5 ml/ Insulin Human Regular 40 unit/ Total Parenteral Nutrition/Amino Acids/Dextrose/ Fat Emulsion Intravenous 1,400 ml @ 58.333 mls/ hr TPN CONT IV Last administered on 07/30/19at 21:21; Start 07/30/19 at 22:00; Stop 07/31/19 at 21:59; Status DC Sodium Chloride 1,000 ml @ 1,000 mls/hr Q1H PRN IV hypotension; Start 07/30/19 at 13:26; Stop 07/30/19 at 19:25; Status DC Albumin Human 200 ml @ 200 mls/hr 1X PRN PRN IV Hypotension Last administered on 07/30/19at 15:00; Start 07/30/19 at 13:30; Stop 07/30/19 at 19:29; Status DC Sodium Chloride (Normal Saline Flush) 10 ml 1X PRN PRN IV AP catheter pack; St art 07/30/19 at 13:30; Stop 07/31/19 at 13:29; Status DC Sodium Chloride (Normal Saline Flush) 10 ml 1X PRN PRN IV PC SU[employer] SPECIALIST catheter pack; Start 07/30/19 at 13:30; Stop 07/31/19 at 13:29; Status DC Sodium Chloride 1,000 ml @ 400 mls/hr Q2H30M PRN IV PATENCY; Start 07/30/19 at 13:26; Stop 07/31/19 at 01:25; Status DC Info (PHARMACY MONITORING -- do not chart) 1 each PRN DAILY PRN MC SEE COMMENTS; Start 07/30/19 at 13:30; Stop 07/30/19 at 13:33; Status DC Info (PHARMACY MONITORING -- do not chart) 1 each PRN DAILY PRN MC SEE COMMENTS; Start 07/30/19 at 13:30; Stop 07/30/19 at 13:34; Status DC Sodium Chloride 90 meq/Potassium Phosphate 19 mmol/ Magnesium Sulfate 12 meq/Calcium Gluconate 15 meq/ Multivitamins 10 ml/Chromium/ Copper/Manganese/ Seleni/Zn 0.5 ml/ Insulin Human Regular 40 unit/ Total Parenteral Nutrition/Amino Acids/Dextrose/ Fat Emulsion Intravenous 1,400 ml @ 58.333 mls/ hr TPN CONT IV Last administered on 07/31/19at 21:54; Start 07/31/19 at 22:00; Stop 08/01/19 at 21:59; Status DC Sodium Chloride 1,000 ml @ 1,000 mls/hr Q1H PRN IV hypotension; Start 08/01/19 at 09:35; Stop 08/01/19 at 15:34; Status DC Albumin Human 200 ml @ 200 mls/hr 1X PRN PRN IV Hypotension; Start 08/01/19 at 09:45; Stop 08/01/19 at 15:44; Status DC Diphenhydramine HCl (Benadryl) 25 mg 1X PRN PRN IV ITCHING; Start 08/01/19 at 09:45; Stop 08/02/19 at 09:44; Status DC Diphenhydramine HCl (Benadryl) 25 mg 1X PRN PRN IV ITCHING; Start 08/01/19 at 09:45; Stop 08/02/19 at 09:44; Status DC Sodium Chloride 1,000 ml @ 400 mls/hr Q2H30M PRN IV PATENCY; Start 08/01/19 at 09:35; Stop 08/01/19 at 21:34; Status DC Info (PHARMACY MONITORING -- do not chart) 1 each PRN DAILY PRN MC SEE COMMENTS; Start 08/01/19 at 09:45; Status Cancel Sodium Chloride 100 meq/Potassium Phosphate 19 mmol/ Magnesium Sulfate 12 meq/Calcium Gluconate 15 meq/ Multivitamins 10 ml/Chromium/ Copper/Manganese/ Seleni/Zn 0.5 ml/ Insulin Human Regular 40 unit/ Potassium Chloride 20 meq/ Total Parenteral Nutrition/Amino Acids/Dextrose/ Fat Emulsion Intravenous 1,400 ml @ 58.333 mls/ hr TPN CONT IV Last administered on 08/01/19at 22:02; Start 08/01/19 at 22:00; Stop 08/02/19 at 21:59; Status DC Furosemide (Lasix) 40 mg 1X ONCE IVP Last administered on 08/01/19at 14:39; Start 08/01/19 at 14:30; Stop 08/01/19 at 14:31; Status DC Metronidazole 100 ml @ 100 mls/hr Q8HRS IV Last administered on 08/09/19at 06:04; Start 08/02/19 at 10:00; Stop 08/09/19 at 08:10; Status DC Sodium Chloride 1,000 ml @ 1,000 mls/hr Q1H PRN IV hypotension; Start 08/02/19 at 08:00; Stop 08/02/19 at 13:59; Status DC Albumin Human 200 ml @ 200 mls/hr 1X PRN PRN IV Hypotension; Start 08/02/19 at 08:00; Stop 08/02/19 at 13:59; Status DC Sodium Chloride 1,000 ml @ 400 mls/hr Q2H30M PRN IV PATENCY; Start 08/02/19 at 08:00; Stop 08/02/19 at 19:59; Status DC Info (PHARMACY MONITORING -- do not chart) 1 each PRN DAILY PRN MC SEE COMMENTS; Start 08/02/19 at 11:30; Status UNV Info (PHARMACY MONITORING -- do not chart) 1 each PRN DAILY PRN MC SEE COMMENTS; Start 08/02/19 at 11:30; Stop 08/04/19 at 12:13; Status DC Sodium Chloride 100 meq/Potassium Phosphate 19 mmol/ Magnesium Sulfate 12 meq/Calcium Gluconate 15 meq/ Multivitamins 10 ml/Chromium/ Copper/Manganese/ Seleni/Zn 0.5 ml/ Insulin Human Regular 40 unit/ Potassium Chloride 20 meq/ T otal Parenteral Nutrition/Amino Acids/Dextrose/ Fat Emulsion Intravenous 1,400 ml @ 58.333 mls/ hr TPN CONT IV Last administered on 08/02/19at 21:52; Start 08/02/19 at 22:00; Stop 08/03/19 at 21:59; Status DC Sodium Chloride (Normal Saline Flush) 10 ml QSHIFT PRN IV AFTER MEDS AND BLOOD DRAWS; Start 08/02/19 at 15:00; Stop 08/30/19 at 11:27; Status DC Sodium Chloride (Normal Saline Flush) 10 ml PRN Q5MIN PRN IV AFTER MEDS AND BLOOD DRAWS; Start 08/02/19 at 15:00 Sodium Chloride (Normal Saline Flush) 20 ml PRN Q5MIN PRN IV AFTER MEDS AND BLOOD DRAWS; Start 08/02/19 at 15:00 Sodium Chloride 100 meq/Potassium Phosphate 19 mmol/ Magnesium Sulfate 12 meq/Calcium Gluconate 15 meq/ Multivitamins 10 ml/Chromium/ Copper/Manganese/ Seleni/Zn 0.5 ml/ Insulin Human Regular 40 unit/ Potassium Chloride 20 meq/ Total Parenteral Nutrition/Amino Acids/Dextrose/ Fat Emulsion Intravenous 1,400 ml @ 58.333 mls/ hr TPN CONT IV Last administered on 08/03/19at 21:20; Start 08/03/19 at 22:00; Stop 08/04/19 at 21:59; Status DC Lidocaine HCl (Buffered Lidocaine 1%) 3 ml STK-MED ONCE .ROUTE ; Start 08/03/19 at 13:16; Stop 08/03/19 at 13:16; Status DC Lidocaine HCl (Buffered Lidocaine 1%) 6 ml 1X ONCE INJ Last administered on 08/03/19at 13:45; Start 08/03/19 at 13:30; Stop 08/03/19 at 13:31; Status DC Albumin Human 100 ml @ 100 mls/hr 1X ONCE IV Last administered on 08/03/19at 15:41; Start 08/03/19 at 15:00; Stop 08/03/19 at 15:59; Status DC Albumin Human 50 ml @ 50 mls/hr 1X ONCE IV Last administered on 08/03/19at 15:00; Start 08/03/19 at 15:00; Stop 08/03/19 at 15:59; Status DC Info (PHARMACY MONITORING -- do not chart) 1 each PRN DAILY PRN MC SEE COMMENTS; Start 08/04/19 at 11:30; Status Cancel Info (PHARMACY MONITORING -- do not chart) 1 each PRN DAILY PRN MC SEE C OMMENTS; Start 08/04/19 at 11:30; Status UNV Sodium Chloride 100 meq/Potassium Phosphate 10 mmol/ Magnesium Sulfate 12 meq/Calcium Gluconate 15 meq/ Multivitamins 10 ml/Chromium/ Copper/Manganese/ Seleni/Zn 0.5 ml/ Insulin Human Regular 35 unit/ Potassium Chloride 20 meq/ Total Parenteral Nutrition/Amino Acids/Dextrose/ Fat Emulsion Intravenous 1,400 ml @ 58.333 mls/ hr TPN CONT IV Last administered on 08/04/19at 22:10; Start 08/04/19 at 22:00; Stop 08/05/19 at 21:59; Status DC Sodium Chloride 100 meq/Potassium Phosphate 5 mmol/ Magnesium Sulfate 12 meq/Calcium Gluconate 15 meq/ Multivitamins 10 ml/Chromium/ Copper/Manganese/ Se dinorah/Zn 0.5 ml/ Insulin Human Regular 35 unit/ Potassium Chloride 20 meq/ Total Parenteral Nutrition/Amino Acids/Dextrose/ Fat Emulsion Intravenous 1,400 ml @ 58.333 mls/ hr TPN CONT IV Last administered on 08/05/19at 22:59; Start 08/05/19 at 22:00; Stop 08/06/19 at 21:59; Status DC Sodium Chloride 1,000 ml @ 1,000 mls/hr Q1H PRN IV hypotension; Start 08/06/19 at 08:27; Stop 08/06/19 at 14:26; Status DC Albumin Human 200 ml @ 200 mls/hr 1X PRN PRN IV Hypotension Last administered on 08/06/19at 09:18; Start 08/06/19 at 08:30; Stop 08/06/19 at 14:29; Status DC Sodium Chloride 1,000 ml @ 400 mls/hr Q2H30M PRN IV PATENCY; Start 08/06/19 at 08:27; Stop 08/06/19 at 20:26; Status DC Info (PHARMACY MONITORING -- do not chart) 1 each PRN DAILY PRN MC SEE CO MMENTS; Start 08/06/19 at 08:30; Status Cancel Info (PHARMACY MONITORING -- do not chart) 1 each PRN DAILY PRN MC SEE COMMENTS ; Start 08/06/19 at 08:30; Stop 08/14/19 at 13:10; Status DC Sodium Chloride 100 meq/Potassium Chloride 40 meq/ Magnesium Sulfate 15 meq/Calcium Gluconate 15 meq/ Multivitamins 10 ml/Chromium/ Copper/Manganese/ Seleni/Zn 0.5 ml/ Insulin Human Regular 35 unit/ Total Parenteral Nutrition/Amino Acids/Dextrose/ Fat Emulsion Intravenous 1,400 ml @ 58.333 mls/ hr TPN CONT IV Last administered on 08/06/19at 22:00; Start 08/06/19 at 22:00; Stop 08/07/19 at 21:59; Status DC Potassium Chloride/Water 100 ml @ 100 mls/hr 1X ONCE IV Last administered on 08/06/19at 17:28; Start 08/06/19 at 14:45; Stop 08/06/19 at 15:44; Status DC Sodium Chloride 100 meq/Potassium Chloride 40 meq/ Magnesium Sulfate 15 meq/Calcium Gluconate 15 meq/ Multivitamins 10 ml/Chromium/ Copper/Manganese/ Seleni/Zn 0.5 ml/ Insulin Human Regular 35 unit/ Total Parenteral Nutrition/Amino Acids/Dextrose/ Fat Emulsion Intravenous 1,400 ml @ 58.333 mls/ hr TPN CONT IV Last administered on 08/07/19at 22:46; Start 08/07/19 at 22:00; Stop 08/08/19 at 21:59; Status DC Sodium Chloride 100 meq/Potassium Chloride 40 meq/ Magnesium Sulfate 20 meq/Calcium Gluconate 15 meq/ Multivitamins 10 ml/Chromium/ Copper/Manganese/ Seleni/Zn 0.5 ml/ Insulin Human Regular 35 unit/ Total Parenteral Nutrition/Amino Acids/Dextrose/ Fat Emulsion Intravenous 1,400 ml @ 58.333 mls/ hr TPN CONT IV Last administered on 08/08/19at 22:31; Start 08/08/19 at 22:00; Stop 08/09/19 at 21:59; Status DC Fentanyl Citrate (Fentanyl 2ml Vial) 50 mcg PRN Q2HR PRN IVP PAIN Last administered on 08/15/19at 13:32; Start 08/08/19 at 21:00; Stop 08/16/19 at 12:53; Status DC Fentanyl Citrate (Fentanyl 2ml Vial) 25 mcg PRN Q2HR PRN IVP PAIN; Start 08/08/19 at 21:00; Stop 08/16/19 at 12:54; Status DC Enoxaparin Sodium (Lovenox 100mg Syringe) 100 mg Q12HR SQ ; Start 08/09/19 at 21:00; Status UNV Amino Acids/ Glycerin/ Electrolytes 1,000 ml @ 75 mls/hr [id number] IV ; Start 08/08/19 at 21:15; Status UNV Sodium Chloride 1,000 ml @ 1,000 mls/hr Q1H PRN IV hypotension; Start 08/09/19 at 07:56; Stop 08/09/19 at 13:55; Status DC Albumin Human 200 ml @ 200 mls/hr 1X PRN PRN IV Hypotension Last administered on 08/09/19at 08:40; Start 08/09/19 at 08:00; Stop 08/09/19 at 13:59; Status DC Sodium Chloride 1,000 ml @ 400 mls/hr Q2H30M PRN IV PATENCY; Start 08/09/19 at 07:56; Stop 08/09/19 at 19:55; Status DC Info (PHARMACY MONITORING -- do not chart) 1 each PRN DAILY PRN MC SEE COMMENTS; Start 08/09/19 at 08:00; Status UNV Info (PHARMACY MONITORING -- do not chart) 1 each PRN DAILY PRN MC SEE COMMENTS; Start 08/09/19 at 08:00; Status UNV Daptomycin 430 mg/ Sodium Chloride 50 ml @ 100 mls/hr Q24H IV Last administered on 08/09/19at 12:35; Start 08/09/19 at 09:00; Stop 08/09/19 at 12:49; Status DC Sodium Chloride 100 meq/Potassium Chloride 40 meq/ Magnesium Sulfate 20 meq/Calcium Gluconate 15 meq/ Multivitamins 10 ml/Chromium/ Copper/Manganese/ Seleni/Zn 0.5 ml/ Insulin Human Regular 35 unit/ Total Parenteral Nutrition/Amino Acids/Dextrose/ Fat Emulsion Intravenous 1,400 ml @ 58.333 mls/ hr TPN CONT IV Last administered on 08/09/19at 21:26; Start 08/09/19 at 22:00; Stop 08/10/19 at 21:59; Status DC Daptomycin 430 mg/ Sodium Chloride 50 ml @ 100 mls/hr Q48H IV ; Start 08/11/19 at 09:00; Stop 08/10/19 at 11:55; Status DC Sodium Chloride 100 meq/Potassium Chloride 40 meq/ Magnesium Sulfate 20 meq/Calcium Gluconate 15 meq/ Multivitamins 10 ml/Chromium/ Copper/Manganese/ Seleni/Zn 0.5 ml/ Insulin Human Regular 35 unit/ Total Parenteral Nutrition/Amino Acids/Dextrose/ Fat Emulsion Intravenous 1,400 ml @ 58.333 mls/ hr TPN CONT IV Last administered on 08/10/19at 22:27; Start 08/10/19 at 22:00; Stop 08/11/19 at 21:59; Status DC Daptomycin 430 mg/ Sodium Chloride 50 ml @ 100 mls/hr Q24H IV Last administered on 08/12/19at 15:07; Start 08/10/19 at 13:00; Stop 08/13/19 at 13:15; Status DC Sodium Chloride 100 meq/Potassium Chloride 40 meq/ Magnesium Sulfate 20 meq/Calcium Gluconate 10 meq/ Multivitamins 10 ml/Chromium/ Copper/Manganese/ Seleni/Zn 0.5 ml/ Insulin Human Regular 35 unit/ Total Parenteral Nutrition /Amino Acids/Dextrose/ Fat Emulsion Intravenous 1,400 ml @ 58.333 mls/ hr TPN CONT IV Last administered on 08/12/19at 00:06; Start 08/11/19 at 22:00; Stop 08/12/19 at 21:59; Status DC Alteplase, Recombinant (Cathflo For Central Catheter Clearance) 1 mg 1X ONCE INT CAT Last administered on 08/12/19at 11:44; Start 08/12/19 at 10:45; Stop 08/12/19 at 10:46; Status DC Ondansetron HCl (Zofran) 4 mg PRN Q6HRS PRN IV NAUSEA/VOMITING; Start 08/15/19 at 07:00; Stop 08/16/19 at 06:59; Status DC Fentanyl Citrate (Fentanyl 2ml Vial) 25 mcg PRN Q5MIN PRN IV MILD PAIN 1-3; Start 08/15/19 at 07:00; Stop 08/16/19 at 06:59; Status DC Fentanyl Citrate (Fentanyl 2ml Vial) 50 mcg PRN Q5MIN PRN IV MODERATE TO SEVERE PAIN Last administered on 08/15/19at 10:17; Start 08/15/19 at 07:00; Stop 08/16/19 at 06:59; Status DC Ringer's Solution 1,000 ml @ 30 mls/hr Q24H IV ; Start 08/15/19 at 07:00; Stop 08/15/19 at 18:59; Status DC Lidocaine HCl (Xylocaine-Mpf 1% 2ml Vial) 2 ml PRN 1X PRN ID PRIOR TO IV START; Start 08/15/19 at 07:00; Stop 08/16/19 at 06:59; Status DC Prochlorperazine Edisylate (Compazine) 5 mg PACU PRN PRN IV NAUSEA, MRX1; Start 08/15/19 at 07:00; Stop 08/16/19 at 06:59; Status DC Sodium Acetate 50 meq/Potassium Acetate 55 meq/ Magnesium Sulfate 20 meq/Calcium Gluconate 10 meq/ Multivitamins 10 ml/Chromium/ Copper/Manganese/ Seleni/Zn 0.5 ml/ Insulin Human Regular 35 unit/ Total Parenteral Nutrition/Amino Acids/Dextrose/ Fat Emulsion Intravenous 1,400 ml @ 58.333 mls/ hr TPN CONT IV ; Start 08/12/19 at 22:00; Stop 08/12/19 at 14:15; Status DC Sodium Acetate 50 meq/Potassium Acetate 55 meq/ Magnesium Sulfate 20 meq/Calcium Gluconate 10 meq/ Multivitamins 10 ml/Chromium/ Copper/Manganese/ Seleni/Zn 0.5 ml/ Insulin Human Regular 35 unit/ Total Parenteral Nutrition/Amino Acids/Dextrose/ Fat Emulsion Intravenous 1,800 ml @ 75 mls/hr TPN CONT IV Last administered on 08/12/19at 22:38; Start 08/12/19 at 22:00; Stop 08/13/19 at 21:59; Status DC Sodium Chloride 1,000 ml @ 1,000 mls/hr Q1H PRN IV hypotension; Start 08/12/19 at 15:31; Stop 08/12/19 at 21:30; Status DC Diphenhydramine HCl (Benadryl) 25 mg 1X PRN PRN IV ITCHING; Start 08/12/19 at 15:45; Stop 08/13/19 at 15:44; Status DC Diphenhydramine HCl (Benadryl) 25 mg 1X PRN PRN IV ITCHING; Start 08/12/19 at 15:45; Stop 08/13/19 at 15:44; Status DC Sodium Chloride 1,000 ml @ 400 mls/hr Q2H30M PRN IV PATENCY; Start 08/12/19 at 15:31; Stop 08/13/19 at 03:30; Status DC Info (PHARMACY MONITORING -- do not chart) 1 each PRN DAILY PRN MC SEE COMMENTS; Start 08/12/19 at 15:45; Stop 09/13/19 at 14:14; Status DC Sodium Acetate 50 meq/Potassium Acetate 55 meq/ Magnesium Sulfate 20 meq/Calcium Gluconate 10 meq/ Multivitamins 10 ml/Chromium/ Copper/Manganese/ Seleni/Zn 0.5 ml/ Insulin Human Regular 35 unit/ Total Parenteral Nutrition/Amino Acids/Dextrose/ Fat Emulsion Intravenous 1,800 ml @ 75 mls/hr TPN CONT IV Last administered on 08/13/19at 22:03; Start 08/13/19 at 22:00; Stop 08/14/19 at 21:59; Status DC Daptomycin 430 mg/ Sodium Chloride 50 ml @ 100 mls/hr Q24H IV Last administered on 08/18/19at 13:00; Start 08/13/19 at 13:00; Stop 08/18/19 at 20:58; Status DC Heparin Sodium (Porcine) 1000 unit/Sodium Chloride 1,001 ml @ 1,001 mls/hr 1X ONCE IRR ; Start 08/15/19 at 06:00; Stop 08/15/19 at 06:59; Status DC Potassium Acetate 55 meq/Magnesium Sulfate 20 meq/ Calcium Gluconate 10 meq/ Multivitamins 10 ml/Chromium/ Copper/Manganese/ Seleni/Zn 0.5 ml/ Insulin Human Regular 35 unit/ Total Parenteral Nutrition/Amino Acids/Dextrose/ Fat Emulsion Intravenous 1,920 ml @ 80 mls/hr TPN CONT IV Last administered on 08/14/19at 22:10; Start 08/14/19 at 22:00; Stop 08/15/19 at 21:59; Status DC Dexamethasone Sodium Phosphate (Decadron) 4 mg STK-MED ONCE .ROUTE ; Start 08/15/19 at 10:56; Stop 08/15/19 at 10:57; Status DC Ondansetron HCl (Zofran) 4 mg STK-MED ONCE .ROUTE ; Start 08/15/19 at 10:56; Stop 08/15/19 at 10:57; Status DC Rocuronium Vernal (Zemuron) 50 mg STK-MED ONCE .ROUTE ; Start 08/15/19 at 10:56; Stop 08/15/19 at 10:57; Status DC Fentanyl Citrate (Fentanyl 2ml Vial) 100 mcg STK-MED ONCE .ROUTE ; Start 08/15/19 at 10:56; Stop 08/15/19 at 10:57; Status DC Bupivacaine HCl/ Epinephrine Bitart (Sensorcain-Epi 0.5%-1:380950 Mpf) 30 ml STK-MED ONCE .ROUTE Last administered on 08/15/19at 12:01; Start 08/15/19 at 10: 58; Stop 08/15/19 at 10:58; Status DC Cellulose (Surgicel Hemostat 2x14) 1 each STK-MED ONCE .ROUTE ; Start 08/15/19 at 10:58; Stop 08/15/19 at 10:59; Status DC Iohexol (Omnipaque 300 Mg/ml) 50 ml STK-MED ONCE .ROUTE ; Start 08/15/19 at 10:58; Stop 08/15/19 at 10:59; Status DC Cellulose (Surgicel Hemostat 4x8) 1 each STK-MED ONCE .ROUTE ; Start 08/15/19 at 10:58; Stop 08/15/19 at 10:59; Status DC Bisacodyl (Dulcolax Supp) 10 mg STK-MED ONCE .ROUTE ; Start 08/15/19 at 10:59; Stop 08/15/19 at 10:59; Status DC Heparin Sodium (Porcine) 1000 unit/Sodium Chloride 1,001 ml @ 1,001 mls/hr 1X ONCE IRR ; Start 08/15/19 at 12:00; Stop 08/15/19 at 12:59; Status DC Propofol 20 ml @ As Directed STK-MED ONCE IV ; Start 08/15/19 at 11:05; Stop 08/15/19 at 11:05; Status DC Sevoflurane (Ultane) 90 ml STK-MED ONCE IH ; Start 08/15/19 at 11:05; Stop 08/15/19 at 11:05; Status DC Sevoflurane (Ultane) 60 ml STK-MED ONCE IH ; Start 08/15/19 at 12:26; Stop 08/15/19 at 12:27; Status DC Propofol 20 ml @ As Directed STK-MED ONCE IV ; Start 08/15/19 at 12:26; Stop 08/15/19 at 12:27; Status DC Phenylephrine HCl (PHENYLEPHRINE in 0.9% NACL PF) 1 mg STK-MED ONCE IV ; Start 08/15/19 at 12:34; Stop 08/15/19 at 12:34; Status DC Heparin Sodium (Porcine) (Heparin Sodium) 5,000 unit Q12HR SQ Last administered on 08/24/19at 20:57; Start 08/15/19 at 21:00; Stop 08/25/19 at 09:59; Status DC Sodium Chloride (Normal Saline Flush) 3 ml QSHIFT PRN IV AFTER MEDS AND BLOOD DRAWS; Start 08/15/19 at 13:45; Status Cancel Naloxone HCl (Narcan) 0.4 mg PRN Q2MIN PRN IV SEE INSTRUCTIONS Last administered on 09/24/19at 15:15; Start 08/15/19 at 13:45; Stop 10/19/19 at 16:00; Status DC Sodium Chloride 1,000 ml @ 25 mls/hr Q24H IV Last administered on 09/13/19at 13:37; Start 08/15/19 at 13:37; Stop 09/16/19 at 13:09; Status DC Naloxone HCl (Narcan) 0.4 mg PRN Q2MIN PRN IV SEE INSTRUCTIONS; Start 08/15/19 at 14:30; Status UNV Sodium Chloride 1,000 ml @ 25 mls/hr Q24H IV ; Start 08/15/19 at 14:30; Status UNV Hydromorphone HCl 30 ml @ 0 mls/hr CONT PRN PRN IV PER PROTOCOL Last administered on 08/20/19at 16:08; Start 08/15/19 at 14:30; Stop 08/22/19 at 08:55; Status DC Potassium Acetate 55 meq/Magnesium Sulfate 20 meq/ Calcium Gluconate 10 meq/ Multivitamins 10 ml/Chromium/ Copper/Manganese/ Seleni/Zn 0.5 ml/ Insulin Human Regular 35 unit/ Total Parenteral Nutrition/Amino Acids/Dextrose/ Fat Emulsion Intravenous 1,920 ml @ 80 mls/hr TPN CONT IV Last administered on 08/15/19at 22:01; Start 08/15/19 at 22:00; Stop 08/16/19 at 21:59; Status DC Bumetanide (Bumex) 2 mg [id number] IV Last administered on 08/19/19at 13:50; Start 08/16/19 at 14:00; Stop 08/20/19 at 14:10; Status DC Meropenem 1 gm/ Sodium Chloride 100 ml @ 200 mls/hr Q8HRS IV Last administered on 09/09/19at 05:53; Start 08/16/19 at 14:00; Stop 09/09/19 at 09:31; Status DC Potassium Acetate 55 meq/Magnesium Sulfate 20 meq/ Calcium Gluconate 10 meq/ Multivitamins 10 ml/Chromium/ Copper/Manganese/ Seleni/Zn 0.5 ml/ Insulin Human Regular 35 unit/ Total Parenteral Nutrition/Amino Acids/Dextrose/ Fat Emulsion Intravenous 1,920 ml @ 80 mls/hr TPN CONT IV Last administered on 08/16/19at 22:02; Start 08/16/19 at 22:00; Stop 08/17/19 at 21:59; Status DC Hydromorphone HCl (Dilaudid Standard ENGINE TEST CELL TECHNICIAN) 12 mg STK-MED ONCE IV ; Start 08/15/19 at 14:35; Stop 08/16/19 at 13:53; Status DC Artificial Tears (Artificial Tears) 1 drop PRN Q15MIN PRN OU DRY EYE Last administered on 10/11/19at 21:17; Start 08/17/19 at 05:30 Hydromorphone HCl (Dilaudid Standard [employer]INE TEST CELL TECHNICIAN) 12 mg STK-MED ONCE IV ; Start 08/16/19 at 12:05; Stop 08/17/19 at 09:15; Status DC Potassium Acetate 65 meq/Magnesium Sulfate 20 meq/ Calcium Gluconate 10 meq/ Multivitamins 10 ml/Chromium/ Copper/Manganese/ Seleni/Zn 0.5 ml/ Insulin Human Regular 30 unit/ Total Parenteral Nutrition/Amino Acids/Dextrose/ Fat Emulsion I ntravenous 1,920 ml @ 80 mls/hr TPN CONT IV Last administered on 08/17/19at 22:22; Start 08/17/19 at 22:00; Stop 08/18/19 at 21:59; Status DC Cyclobenzaprine HCl (Flexeril) 10 mg PRN Q6HRS PRN PO MUSCLE SPASMS Last administered on 10/28/19at 19:12; Start 08/18/19 at 10:45 Potassium Acetate 55 meq/Magnesium Sulfate 20 meq/ Calcium Gluconate 10 meq/ Multivitamins 10 ml/Chromium/ Copper/Manganese/ Seleni/Zn 0.5 ml/ Insulin Human Regular 30 unit/ Total Parenteral Nutrition/Amino Acids/Dextrose/ Fat Emulsion Intravenous 1,920 ml @ 80 mls/hr TPN CONT IV Last administered on 08/19/19at 01:00; Start 08/18/19 at 22:00; Stop 08/19/19 at 21:59; Status DC Magnesium Sulfate 50 ml @ 25 mls/hr 1X ONCE IV Last administered on 08/18/19at 17:18; Start 08/18/19 at 12:45; Stop 08/18/19 at 14:44; Status DC Potassium Chloride/Water 100 ml @ 100 mls/hr 1X ONCE IV Last administered on 08/19/19at 11:27; Start 08/19/19 at 12:00; Stop 08/19/19 at 12:59; Status DC Hydromorphone HCl (Dilaudid Standard ENGINE TEST CELL TECHNICIAN) 12 mg STK-MED ONCE IV ; Start 08/17/19 at 10:50; Stop 08/19/19 at 11:02; Status DC Hydromorphone HCl (Dilaudid Standard ENGINE TEST CELL TECHNICIAN) 12 mg STK-MED ONCE IV ; Start 08/18/19 at 13:47; Stop 08/19/19 at 11:03; Status DC Potassium Acetate 30 meq/Magnesium Sulfate 20 meq/ Calcium Gluconate 10 meq/ Multivitamins 10 ml/Chromium/ Copper/Manganese/ Seleni/Zn 0.5 ml/ Insulin Human Regular 30 unit/ Potassium Chloride 30 meq/ Total Parenteral Nutrition/Amino Acids/Dextrose/ Fat Emulsion Intravenous 1,920 ml @ 80 mls/hr TPN CONT IV Last administered on 08/19/19at 22:34; Start 08/19/19 at 22:00; Stop 08/20/19 at 21:59; Status DC Potassium Chloride/Water 100 ml @ 100 mls/hr Q1H IV Last administered on 08/20/19at 13:05; Start 08/20/19 at 07:00; Stop 08/20/19 at 10:59; Status DC Magnesium Sulfate 50 ml @ 25 mls/hr 1X ONCE IV Last administered on 08/20/19at 10:34; Start 08/20/19 at 10:30; Stop 08/20/19 at 12:29; Status DC Potassium Chloride 75 meq/ Magnesium Sulfate 20 meq/Calcium Gluconate 10 meq/ Multivitamins 10 ml/Chromium/ Copper/Manganese/ Seleni/Zn 0.5 ml/ Insulin Human Regular 30 unit/ Total Parenteral Nutrition/Amino Acids/Dextrose/ Fat Emulsion Intravenous 1,920 ml @ 80 mls/hr TPN CONT IV Last administered on 08/20/19at 21:51; Start 08/20/19 at 22:00; Stop 08/21/19 at 22:00; Status DC Potassium Chloride 75 meq/ Magnesium Sulfate 20 meq/Calcium Gluconate 10 meq/ Multivitamins 10 ml/Chromium/ Copper/Manganese/ Seleni/Zn 0.5 ml/ Insulin Human Regular 25 unit/ Total Parenteral Nutrition/Amino Acids/Dextrose/ Fat Emulsion Intravenous 1,920 ml @ 80 mls/hr TPN CONT IV Last administered on 08/21/19at 22:04; Start 08/21/19 at 22:00; Stop 08/22/19 at 21:59; Status DC Hydromorphone HCl (Dilaudid) 0.4 mg PRN Q4HRS PRN IVP PAIN Last administered on 08/22/19at 10:57; Start 08/22/19 at 09:00; Stop 08/22/19 at 18:59; Status DC Micafungin Sodium 100 mg/Dextrose 100 ml @ 100 mls/hr Q24H IV Last administered on 09/13/19at 12:17; Start 08/22/19 at 11:00; Stop 09/14/19 at 09:59; Status DC Daptomycin 485 mg/ Sodium Chloride 50 ml @ 100 mls/hr Q24H IV Last administered on 08/29/19at 13:10; Start 08/22/19 at 11:00; Stop 08/30/19 at 07:44; Status DC Potassium Chloride 75 meq/ Magnesium Sulfate 15 meq/Calcium Gluconate 8 meq/ Multivitamins 10 ml/Chromium/ Copper/Manganese/ Seleni/Zn 0.5 ml/ Insulin Human Regular 25 unit/ Total Parenteral Nutrition/Amino Acids/Dextrose/ Fat Emulsion Intravenous 1,920 ml @ 80 mls/hr TPN CONT IV Last administered on 08/22/19at 23:08; Start 08/22/19 at 22:00; Stop 08/23/19 at 21:59; Status DC Haloperidol Lactate (Haldol Inj) 3 mg 1X ONCE IVP Last administered on 08/22/19at 14:37; Start 08/22/19 at 14:30; Stop 08/22/19 at 14:31; Status DC Hydromorphone HCl (Dilaudid) 1 mg PRN Q4HRS PRN IVP PAIN Last administered on 09/05/19at 06:25; Start 08/22/19 at 19:00; Stop 09/05/19 at 17:10; Status DC Potassium Chloride 75 meq/ Magnesium Sulfate 15 meq/Calcium Gluconate 8 meq/ Multivitamins 10 ml/Chromium/ Copper/Manganese/ Seleni/Zn 0.5 ml/ Insulin Human Regular 20 unit/ Total Parenteral Nutrition/Amino Acids/Dextrose/ Fat Emulsion Intravenous 1,920 ml @ 80 mls/hr TPN CONT IV Last administered on 08/23/19at 22:10; Start 08/23/19 at 22:00; Stop 08/24/19 at 21:59; Status DC Lidocaine HCl (Buffered Lidocaine 1%) 3 ml STK-MED ONCE .ROUTE ; Start 08/24/19 at 11:31; Stop 08/24/19 at 11:31; Status DC Lidocaine HCl (Buffered Lidocaine 1%) 3 ml STK-MED ONCE .ROUTE ; Start 08/24/19 at 12:28; Stop 08/24/19 at 12:29; Status DC Lidocaine HCl (Buffered Lidocaine 1%) 6 ml 1X ONCE INJ Last administered on 08/24/19at 12:53; Start 08/24/19 at 12:45; Stop 08/24/19 at 12:46; Status DC Potassium Chloride 75 meq/ Magnesium Sulfate 15 meq/Calcium Gluconate 8 meq/ Multivitamins 10 ml/Chromium/ Copper/Manganese/ Seleni/Zn 0.5 ml/ Insulin Human Regular 20 unit/ Total Parenteral Nutrition/Amino Acids/Dextrose/ Fat Emulsion Intravenous 1,920 ml @ 80 mls/hr TPN CONT IV Last administered on 08/24/19at 22:00; Start 08/24/19 at 22:00; Stop 08/25/19 at 21:59; Status DC Potassium Chloride 75 meq/ Magnesium Sulfate 15 meq/Calcium Gluconate 8 meq/ Multivitamins 10 ml/Chromium/ Copper/Manganese/ Seleni/Zn 0.5 ml/ Insulin Human Regular 15 unit/ Total Parenteral Nutrition/Amino Acids/Dextrose/ Fat Emulsion Intravenous 1,920 ml @ 80 mls/hr TPN CONT IV Last administered on 08/25/19at 22:28; Start 08/25/19 at 22:00; Stop 08/26/19 at 21:59; Status DC Vecuronium Vernal (Norcuron Bolus) 6 mg PRN Q6HRS PRN IV VENT ASYNCHRONY; Start 08/25/19 at 19:15; Stop 08/25/19 at 19:35; Status DC Bumetanide (Bumex) 2 mg 1X ONCE IV Last administered on 08/25/19at 22:09; Start 08/25/19 at 19:45; Stop 08/25/19 at 19:46; Status DC Lidocaine HCl (Buffered Lidocaine 1%) 3 ml STK-MED ONCE .ROUTE ; Start 08/26/19 at 07:59; Stop 08/26/19 at 07:59; Status DC Midazolam HCl (Versed) 5 mg STK-MED ONCE .ROUTE ; Start 08/26/19 at 08:36; Stop 08/26/19 at 08:36; Status DC Fentanyl Citrate (Fentanyl 5ml Vial) 250 mcg STK-MED ONCE .ROUTE ; Start 08/26/19 at 08:36; Stop 08/26/19 at 08:37; Status DC Lidocaine HCl (Buffered Lidocaine 1%) 3 ml 1X ONCE IJ Last administered on 08/26/19at 09:30; Start 08/26/19 at 09:15; Stop 08/26/19 at 09:16; Status DC Midazolam HCl (Versed) 5 mg 1X ONCE IV Last administered on 08/26/19at 09:30; Start 08/26/19 at 09:15; Stop 08/26/19 at 09:16; Status DC Fentanyl Citrate (Fentanyl 5ml Vial) 250 mcg 1X ONCE IV Last administered on 08/26/19at 09:30; Start 08/26/19 at 09:15; Stop 08/26/19 at 09:16; Status DC Bumetanide (Bumex) 2 mg DAILY IV Last administered on 09/05/19at 08:07; Start 08/26/19 at 10:00; Stop 09/05/19 at 17:15; Status DC Potassium Chloride 75 meq/ Magnesium Sulfate 15 meq/ Multivitamins 10 ml/Chromium/ Copper/Manganese/ Seleni/Zn 0.5 ml/ Insulin Human Regular 15 unit/ Total Parenteral Nutrition/Amino Acids/Dextrose/ Fat Emulsion Intravenous 1,920 ml @ 80 mls/hr TPN CONT IV Last administered on 08/26/19at 21:59; Start 08/26/19 at 22:00; Stop 08/27/19 at 21:59; Status DC Metoclopramide HCl (Reglan Vial) 10 mg PRN Q3HRS PRN IVP NAUSEA/VOMITING-3rd choice Last administered on 09/01/19at 04:25; Start 08/27/19 at 16:45 Potassium Chloride 75 meq/ Magnesium Sulfate 15 meq/ Multivitamins 10 ml/Chromium/ Copper/Manganese/ Seleni/Zn 0.5 ml/ Insulin Human Regular 15 unit/ Total Parenteral Nutrition/Amino Acids/Dextrose/ Fat Emulsion Intravenous 1,920 ml @ 80 mls/hr TPN CONT IV Last administered on 08/27/19at 22:41; Start 08/27/19 at 22:00; Stop 08/28/19 at 21:59; Status DC Magnesium Sulfate 50 ml @ 25 mls/hr 1X ONCE IV Last administered on 08/28/19at 10:44; Start 08/28/19 at 09:00; Stop 08/28/19 at 10:59; Status DC Potassium Chloride/Water 100 ml @ 100 mls/hr 1X ONCE IV Last administered on 08/28/19at 09:37; Start 08/28/19 at 09:00; Stop 08/28/19 at 09:59; Status DC Duloxetine HCl (Cymbalta) 30 mg DAILY PO Last administered on 08/29/19at 09:48; Start 08/28/19 at 14:00; Stop 08/31/19 at 10:25; Status DC Potassium Chloride 80 meq/ Magnesium Sulfate 20 meq/ Multivitamins 10 ml/Chromium/ Copper/Manganese/ Seleni/Zn 0.5 ml/ Insulin Human Regular 15 unit/ Total Parenteral Nutrition/Amino Acids/Dextrose/ Fat Emulsion Intravenous 1,920 ml @ 80 mls/hr TPN CONT IV Last administered on 08/28/19at 21:42; Start 08/28/19 at 22:00; Stop 08/29/19 at 21:59; Status DC Potassium Chloride 80 meq/ Magnesium Sulfate 20 meq/ Multivitamins 10 ml/Chromium/ Copper/Manganese/ Seleni/Zn 0.5 ml/ Insulin Human Regular 15 unit/ Total Parenteral Nutrition/Amino Acids/Dextrose/ Fat Emulsion Intravenous 1,920 ml @ 80 mls/hr TPN CONT IV Last administered on 08/29/19at 22:20; Start 08/29/19 at 22:00; Stop 08/30/19 at 21:59; Status DC Lidocaine HCl (Buffered Lidocaine 1%) 3 ml STK-MED ONCE .ROUTE ; Start 08/30/19 at 09:54; Stop 08/30/19 at 09:55; Status DC Hydromorphone HCl (Dilaudid Standard ENGINE TEST CELL TECHNICIAN) 12 mg STK-MED ONCE IV ; Start 08/19/19 at 15:50; Stop 08/30/19 at 11:24; Status DC Potassium Chloride 80 meq/ Magnesium Sulfate 20 meq/ Multivitamins 10 ml/Chromium/ Copper/Manganese/ Seleni/Zn 0.5 ml/ Insulin Human Regular 15 unit/ Total Parenteral Nutrition/Amino Acids/Dextrose/ Fat Emulsion Intravenous 1,920 ml @ 80 mls/hr TPN CONT IV Last administered on 08/30/19at 21:40; Start 08/30/19 at 22:00; Stop 08/31/19 at 21:59; Status DC Lidocaine HCl (Buffered Lidocaine 1%) 6 ml 1X ONCE INJ Last administered on 08/30/19at 14:15; Start 08/30/19 at 14:15; Stop 08/30/19 at 14:16; Status DC Potassium Chloride 80 meq/ Magnesium Sulfate 20 meq/ Multivitamins 10 ml/Chromium/ Copper/Manganese/ Seleni/Zn 1 ml/ Insulin Human Regular 15 unit/ Total Parenteral Nutrition/Amino Acids/Dextrose/ Fat Emulsion Intravenous 1,920 ml @ 80 mls/hr TPN CONT IV Last administered on 08/31/19at 22:04; Start 08/31/19 at 22:00; Stop 09/01/19 at 21:59; Status DC Potassium Chloride/Water 100 ml @ 100 mls/hr 1X ONCE IV Last administered on 09/01/19at 11:34; Start 09/01/19 at 11:00; Stop 09/01/19 at 11:59; Status DC Potassium Chloride 90 meq/ Magnesium Sulfate 20 meq/ Multivitamins 10 ml/Chromium/ Copper/Manganese/ Seleni/Zn 1 ml/ Insulin Human Regular 15 unit/ Total Parenteral Nutrition/Amino Acids/Dextrose/ Fat Emulsion Intravenous 1,920 ml @ 80 mls/hr TPN CONT IV Last administered on 09/01/19at 22:57; Start 09/01/19 at 22:00; Stop 09/02/19 at 21:59; Status DC Potassium Chloride 90 meq/ Magnesium Sulfate 20 meq/ Multivitamins 10 ml/Chromium/ Copper/Manganese/ Seleni/Zn 1 ml/ Insulin Human Regular 15 unit/ Total Parenteral Nutrition/Amino Acids/Dextrose/ Fat Emulsion Intravenous 1,920 ml @ 80 mls/hr TPN CONT IV Last administered on 09/02/19at 22:48; Start 09/02/19 at 22:00; Stop 09/03/19 at 21:59; Status DC Potassium Chloride 90 meq/ Magnesium Sulfate 20 meq/ Multivitamins 10 ml/Chromium/ Copper/Manganese/ Seleni/Zn 1 ml/ Insulin Human Regular 15 unit/ Total Parenteral Nutrition/Amino Acids/Dextrose/ Fat Emulsion Intravenous 1,890 ml @ 78.75 mls/ hr TPN CONT IV Last administered on 09/03/19at 22:15; Start 09/03/19 at 22:00; Stop 09/04/19 at 21:59; Status DC Linezolid/Dextrose 300 ml @ 300 mls/hr Q12HR IV Last administered on 09/06/19at 21:08; Start 09/04/19 at 09:00; Stop 09/07/19 at 08:11; Status DC Daptomycin 450 mg/ Sodium Chloride 50 ml @ 100 mls/hr Q24H IV Last ad ministered on 09/07/19at 09:25; Start 09/04/19 at 09:00; Stop 09/08/19 at 08:30; Status DC Potassium Chloride 90 meq/ Magnesium Sulfate 20 meq/ Multivitamins 10 ml/Chromium/ Copper/Manganese/ Seleni/Zn 1 ml/ Insulin Human Regular 15 unit/ Total Parenteral Nutrition/Amino Acids/Dextrose/ Fat Emulsion Intravenous 1,890 ml @ 78.75 mls/ hr TPN CONT IV Last administered on 09/04/19at 21:34; Start 09/04/19 at 22:00; Stop 09/05/19 at 21:59; Status DC Lorazepam (Ativan Inj) 2 mg STK-MED ONCE .ROUTE ; Start 09/04/19 at 14:58; Stop 09/04/19 at 14:58; Status DC Metoprolol Tartrate (Lopressor Vial) 5 mg 1X ONCE IVP Last administered on at 15:31; Start 09/04/19 at 15:15; Stop 09/04/19 at 15:16; Status DC Lorazepam (Ativan Inj) 2 mg 1X ONCE IVP Last administered on 09/04/19at 15:30; Start 09/04/19 at 15:15; Stop 09/04/19 at 15:16; Status DC Enoxaparin Sodium (Lovenox 40mg Syringe) 40 mg Q24H SQ Last administered on 09/23/19at 17:44; Start 09/04/19 at 17:00; Stop 09/25/19 at 06:50; Status DC Lorazepam (Ativan Inj) 1 mg PRN Q4HRS PRN IVP ANXIETY / AGITATION MILD-MOD Last administered on 09/18/19at 15:55; Start 09/04/19 at 19:15; Stop 09/20/19 at 11:45; Status DC Lorazepam (Ativan Inj) 2 mg PRN Q4HRS PRN IVP ANXIETY / AGITATION SEVERE Last administered on 09/19/19at 07:55; Start 09/04/19 at 19:15; Stop 09/20/19 at 11:45; Status DC Fentanyl Citrate (Fentanyl 2ml Vial) 50 mcg PRN Q4HRS PRN IVP SEVERE PAIN Last administered on 10/01/19at 05:15; Start 09/05/19 at 13:15; Stop 10/02/19 at 09:29; Status DC Fentanyl Citrate (Fentanyl 2ml Vial) 25 mcg PRN Q4HRS PRN IVP MODERATE PAIN Last administered on 10/01/19at 00:27; Start 09/05/19 at 13:15; Stop 10/02/19 at 09:30; Status DC Potassium Chloride 90 meq/ Magnesium Sulfate 20 meq/ Multivitamins 10 ml/Chromium/ Copper/Manganese/ Seleni/Zn 1 ml/ Insulin Human Regular 15 unit/ Total Parenteral Nutrition/Amino Acids/Dextrose/ Fat Emulsion Intravenous 1,890 ml @ 78.75 mls/ hr TPN CONT IV Last administered on 09/05/19at 22:18; Start 09/05/19 at 22:00; Stop 09/06/19 at 21:59; Status DC Furosemide (Lasix) 40 mg 1X ONCE IVP Last administered on 09/05/19at 21:51; Start 09/05/19 at 21:45; Stop 09/05/19 at 21:48; Status DC Albumin Human 100 ml @ 100 mls/hr 1X PRN PRN IV SEE COMMENTS; Start 09/06/19 at 01:30 Furosemide (Lasix) 40 mg [id number] IVP Last administered on 09/21/19at 08:04; Start 09/06/19 at 14:00; Stop 09/21/19 at 13:07; Status DC Potassium Chloride 90 meq/ Magnesium Sulfate 20 meq/ Multivitamins 10 ml/Chromium/ Copper/Manganese/ Seleni/Zn 1 ml/ Insulin Human Regular 15 unit/ Total Parenteral Nutrition/Amino Acids/Dextrose/ Fat Emulsion Intravenous 1,800 ml @ 75 mls/hr TPN CONT IV Last administered on 09/06/19at 22:31; Start 09/06/19 at 22:00; Stop 09/07/19 at 21:59; Status DC Potassium Chloride 90 meq/ Magnesium Sulfate 20 meq/ Multivitamins 10 ml/Chromium/ Copper/Manganese/ Seleni/Zn 1 ml/ Insulin Human Regular 15 unit/ Total Parenteral Nutrition/Amino Acids/Dextrose/ Fat Emulsion Intravenous 1,800 ml @ 75 mls/hr TPN CONT IV Last administered on 09/07/19at 22:28; Start 09/07/19 at 22:00; Stop 09/08/19 at 21:59; Status DC Potassium Chloride 110 meq/ Magnesium Sulfate 20 meq/ Multivitamins 10 ml /Chromium/ Copper/Manganese/ Seleni/Zn 1 ml/ Insulin Human Regular 15 unit/ Total Parenteral Nutrition/Amino Acids/Dextrose/ Fat Emulsion Intravenous 1,800 ml @ 75 mls/hr TPN CONT IV Last administered on 09/08/19at 22:01; Start 09/08/19 at 22:00; Stop 09/09/19 at 21:59; Status DC Saliva Substitute (Biotene Moisturizing Mouth) 2 spray PRN Q15MIN PRN PO DRY MOUTH; Start 09/08/19 at 11:00 Potassium Chloride 110 meq/ Magnesium Sulfate 20 meq/ Multivitamins 10 ml/Chromium/ Copper/Manganese/ Seleni/Zn 1 ml/ Insulin Human Regular 15 unit/ Total Parenteral Nutrition/Amino Acids/Dextrose/ Fat Emulsion Intravenous 1,800 ml @ 75 mls/hr TPN CONT IV Last administered on 09/09/19at 22:21; Start 09/09/19 at 22:00; Stop 09/10/19 at 21:59; Status DC Potassium Chloride 110 meq/ Magnesium Sulfate 20 meq/ Multivitamins 10 ml/Chromium/ Copper/Manganese/ Seleni/Zn 1 ml/ Insulin Human Regular 15 unit/ Total Parenteral Nutrition/Amino Acids/Dextrose/ Fat Emulsion Intravenous 1,800 ml @ 75 mls/hr TPN CONT IV Last administered on 09/10/19at 22:04; Start 09/10/19 at 22:00; Stop 09/11/19 at 21:59; Status DC Potassium Chloride 110 meq/ Magnesium Sulfate 20 meq/ Multivitamins 10 ml/Chromium/ Copper/Manganese/ Seleni/Zn 1 ml/ Insulin Human Regular 15 unit/ Total Parenteral Nutrition/Amino Acids/Dextrose/ Fat Emulsion Intravenous 1,800 ml @ 75 mls/hr TPN CONT IV Last administered on 09/11/19at 22:48; Start 09/11/19 at 22:00; Stop 09/12/19 at 21:59; Status DC Potassium Chloride 70 meq/ Magnesium Sulfate 20 meq/ Multivitamins 10 ml /Chromium/ Copper/Manganese/ Seleni/Zn 1 ml/ Insulin Human Regular 15 unit/ Total Parenteral Nutrition/Amino Acids/Dextrose/ Fat Emulsion Intravenous 1,800 ml @ 75 mls/hr TPN CONT IV Last administered on 09/12/19at 21:39; Start 09/12/19 at 22:00; Stop 09/13/19 at 21:59; Status DC Meropenem 500 mg/ Sodium Chloride 50 ml @ 100 mls/hr Q6HRS IV Last administered on 09/14/19at 06:02; Start 09/12/19 at 18:00; Stop 09/14/19 at 09:59; Status DC Barium Sulfate (Varibar Thin Liquid Apple) 148 gm 1X ONCE PO ; Start 09/13/19 at 11:45; Stop 09/13/19 at 11:49; Status DC Potassium Chloride 70 meq/ Magnesium Sulfate 20 meq/ Multivitamins 10 ml/Chromium/ Copper/Manganese/ Seleni/Zn 1 ml/ Insulin Human Regular 15 unit/ Total Parenteral Nutrition/Amino Acids/Dextrose/ Fat Emulsion Intravenous 1,800 ml @ 75 mls/hr TPN CONT IV Last administered on 09/13/19at 22:27; Start 09/13/19 at 22:00; Stop 09/14/19 at 21:59; Status DC Piperacillin Sod/ Tazobactam Sod 3.375 gm/Sodium Chloride 50 ml @ 100 mls/hr Q6HRS IV Last administered on 09/22/19at 06:10; Start 09/14/19 at 12:00; Stop 09/22/19 at 07:26; Status DC Potassium Chloride 70 meq/ Magnesium Sulfate 20 meq/ Multivitamins 10 ml/Chromium/ Copper/Manganese/ Seleni/Zn 1 ml/ Insulin Human Regular 15 unit/ Total Parenteral Nutrition/Amino Acids/Dextrose/ Fat Emulsion Intravenous 1,800 ml @ 75 mls/hr TPN CONT IV Last administered on 09/14/19at 22:03; Start 09/14/19 at 22:00; Stop 09/15/19 at 21:59; Status DC Potassium Chloride 70 meq/ Magnesium Sulfate 20 meq/ Multivitamins 10 ml/Chromium/ Copper/Manganese/ Seleni/Zn 1 ml/ Insulin Human Regular 15 unit/ Total Parenteral Nutrition/Amino Acids/Dextrose/ Fat Emulsion Intravenous 1,800 ml @ 75 mls/hr TPN CONT IV Last administered on 09/15/19at 22:33; Start 09/15/19 at 22:00; Stop 09/16/19 at 21:59; Status DC Potassium Chloride 70 meq/ Magnesium Sulfate 20 meq/ Multivitamins 10 ml/Chromium/ Copper/Manganese/ Seleni/Zn 1 ml/ Insulin Human Regular 15 unit/ Total Parenteral Nutrition/Amino Acids/Dextrose/ Fat Emulsion Intravenous 1,800 ml @ 75 mls/hr TPN CONT IV Last administered on 09/16/19at 23:13; Start 09/16/19 at 22:00; Stop 09/17/19 at 21:59; Status DC Potassium Chloride 80 meq/ Magnesium Sulfate 20 meq/ Multivitamins 10 ml/Chromium/ Copper/Manganese/ Seleni/Zn 1 ml/ Insulin Human Regular 15 unit/ Total Parenteral Nutrition/Amino Acids/Dextrose/ Fat Emulsion Intravenous 1,800 ml @ 75 mls/hr TPN CONT IV Last administered on 09/17/19at 22:30; Start 09/17/19 at 22:00; Stop 09/18/19 at 21:59; Status DC Potassium Chloride 80 meq/ Magnesium Sulfate 20 meq/ Multivitamins 10 ml/Chromium/ Copper/Manganese/ Seleni/Zn 1 ml/ Insulin Human Regular 15 unit/ Total Parenteral Nutrition/Amino Acids/Dextrose/ Fat Emulsion Intravenous 1,800 ml @ 75 mls/hr TPN CONT IV Last administered on 09/18/19at 21:54; Start 09/18/19 at 22:00; Stop 09/19/19 at 21:59; Status DC Potassium Chloride/Water 100 ml @ 100 mls/hr 1X ONCE IV Last administered on 09/19/19at 10:15; Start 09/19/19 at 10:00; Stop 09/19/19 at 10:59; Status DC Potassium Chloride 90 meq/ Magnesium Sulfate 20 meq/ Multivitamins 10 ml/Chromium/ Copper/Manganese/ Seleni/Zn 1 ml/ Insulin Human Regular 20 unit/ Total Parenteral Nutrition/Amino Acids/Dextrose/ Fat Emulsion Intravenous 1,800 ml @ 75 mls/hr TPN CONT IV Last administered on 09/19/19at 22:28; Start 09/19/19 at 22:00; Stop 09/20/19 at 21:59; Status DC Potassium Chloride 90 meq/ Magnesium Sulfate 20 meq/ Multivitamins 10 ml/Chromium/ Copper/Manganese/ Seleni/Zn 1 ml/ Insulin Human Regular 20 unit/ Total Parenteral Nutrition/Amino Acids/Dextrose/ Fat Emulsion Intravenous 1,800 ml @ 75 mls/hr TPN CONT IV Last administered on 09/20/19at 22:08; Start 09/20/19 at 22:00; Stop 09/21/19 at 21:59; Status DC Lorazepam (Ativan Inj) 0.25 mg PRN Q4HRS PRN IVP ANXIETY / AGITATION Last administered on 11/07/19at 03:28; Start 09/21/19 at 07:30 Potassium Chloride 90 meq/ Magnesium Sulfate 20 meq/ Multivitamins 10 ml/Chromium/ Copper/Manganese/ Seleni/Zn 1 ml/ Insulin Human Regular 20 unit/ Total Parenteral Nutrition/Amino Acids/Dextrose/ Fat Emulsion Intravenous 1,800 ml @ 75 mls/hr TPN CONT IV Last administered on 09/21/19at 23:13; Start 09/21/19 at 22:00; Stop 09/22/19 at 21:59; Status DC Furosemide (Lasix) 40 mg DAILY IVP Last administered on 09/23/19at 11:14; Start 09/21/19 at 13:30; Stop 09/25/19 at 09:12; Status DC Fluoxetine HCl (PROzac) 20 mg QHS PEG Last administered on 11/10/19at 20:48; Start 09/22/19 at 21:00 Fentanyl (Duragesic 50mcg/ Hr Patch) 1 patch Q72H TD Last administered on 09/22/19at 21:22; Start 09/22/19 at 21:00; Stop 10/01/19 at 12:00; Status DC Potassium Chloride 40 meq/ Potassium Acetate 60 meq/Magnesium Sulfate 10 meq/ Multivitamins 10 ml/Chromium/ Copper/Manganese/ Seleni/Zn 1 ml/ Insulin Human Regular 20 unit/ Total Parenteral Nutrition/Amino Acids/Dextrose/ Fat Emulsion Intravenous 1,800 ml @ 75 mls/hr TPN CONT IV Last administered on 09/23/19at 00:03; Start 09/22/19 at 22:00; Stop 09/23/19 at 21:59; Status DC Potassium Acetate 80 meq/Magnesium Sulfate 5 meq/ Multivitamins 10 ml/Chromium/ Copper/Manganese/ Seleni/Zn 1 ml/ Insulin Human Regular 20 unit/ Total Parenteral Nutrition/Amino Acids/Dextrose/ Fat Emulsion Intravenous 1,920 ml @ 80 mls/hr TPN CONT IV Last administered on 09/23/19at 21:59; Start 09/23/19 at 22:00; Stop 09/24/19 at 21:59; Status DC Potassium Acetate 60 meq/Magnesium Sulfate 5 meq/ Multivitamins 10 ml/Chromium/ Copper/Manganese/ Seleni/Zn 1 ml/ Insulin Human Regular 30 unit/ Total Parenteral Nutrition/Amino Acids/Dextrose/ Fat Emulsion Intravenous 1,920 ml @ 80 mls/hr TPN CONT IV Last administered on 09/24/19at 21:54; Start 09/24/19 at 22:00; Stop 09/25/19 at 21:59; Status DC Norepinephrine Bitartrate 8 mg/ Dextrose 258 ml @ 13.332 mls/ hr CONT PRN IV PER PROTOCOL Last administered on 10/20/19at 09:09; Start 09/25/19 at 06:30 Albumin Human 500 ml @ 125 mls/hr 1X ONCE IV Last administered on 09/25/19at 08:10; Start 09/25/19 at 08:15; Stop 09/25/19 at 12:14; Status DC Potassium Acetate 40 meq/Magnesium Sulfate 5 meq/ Multivitamins 10 ml/Chromium/ Copper/Manganese/ Seleni/Zn 1 ml/ Insulin Human Regular 30 unit/ Total Parent eral Nutrition/Amino Acids/Dextrose/ Fat Emulsion Intravenous 1,920 ml @ 80 mls/hr TPN CONT IV Last administered on 09/25/19at 22:23; Start 09/25/19 at 22:00; Stop 09/26/19 at 21:59; Status DC Meropenem 1 gm/ Sodium Chloride 100 ml @ 200 mls/hr Q8HRS IV ; Start 09/25/19 at 14:00; Status Cancel Meropenem 1 gm/ Sodium Chloride 100 ml @ 200 mls/hr Q8HRS IV Last administered on 09/25/19at 11:04; Start 09/25/19 at 10:00; Stop 09/25/19 at 13:00; Status DC Meropenem 1 gm/ Sodium Chloride 100 ml @ 200 mls/hr Q12HR IV Last administered on 10/13/19at 08:27; Start 09/25/19 at 21:00; Stop 10/13/19 at 08:56; Status DC Sodium Chloride 1,000 ml @ 1,000 mls/hr 1X ONCE IV Last administered on 09/25/19at 11:06; Start 09/25/19 at 10:45; Stop 09/25/19 at 11:44; Status DC Micafungin Sodium 100 mg/Dextrose 100 ml @ 100 mls/hr Q24H IV Last administered on 10/12/19at 12:34; Start 09/25/19 at 11:00; Stop 10/13/19 at 08:56; Status DC Daptomycin 410 mg/ Sodium Chloride 50 ml @ 100 mls/hr Q24H IV Last administered on 09/27/19at 13:33; Start 09/25/19 at 14:00; Stop 09/28/19 at 08:30; Status DC Midazolam HCl (Versed) 2 mg STK-MED ONCE .ROUTE ; Start 09/25/19 at 14:47; Stop 09/25/19 at 14:48; Status DC Fentanyl Citrate (Fentanyl 2ml Vial) 100 mcg STK-MED ONCE .ROUTE ; Start 09/25/19 at 14:47; Stop 09/25/19 at 14:48; Status DC Flumazenil (Romazicon) 0.5 mg STK-MED ONCE IV ; Start 09/25/19 at 14:48; Stop 09/25/19 at 14:48; Status DC Naloxone HCl (Narcan) 0.4 mg STK-MED ONCE .ROUTE ; Start 09/25/19 at 14:48; Stop 09/25/19 at 14:48; Status DC Lidocaine HCl (Lidocaine 1% 20ml Vial) 20 ml STK-MED ONCE .ROUTE ; Start 09/25/19 at 14:48; Stop 09/25/19 at 14:48; Status DC Midazolam HCl (Versed) 2 mg 1X ONCE IV Last administered on 09/25/19at 15:28; Start 09/25/19 at 15:00; Stop 09/25/19 at 15:01; Status DC Fentanyl Citrate (Fentanyl 2ml Vial) 100 mcg 1X ONCE IV Last administered on 09/25/19at 15:28; Start 09/25/19 at 15:00; Stop 6/7/20 at 15:01; Status DC Lidocaine HCl (Lidocaine 1% 20ml Vial) 20 ml 1X ONCE INJ Last administered on 09/25/19at 15:30; Start 09/25/19 at 15:00; Stop 09/25/19 at 15:01; Status DC Sodium Chloride 1,000 ml @ 100 mls/hr Q10H IV Last administered on 10/04/19at 07:30; Start 09/25/19 at 20:00; Stop 10/04/19 at 11:26; Status DC Sodium Bicarbonate (Sodium Bicarb Adult 8.4% Syr) 50 meq 1X ONCE IV Last administered on 09/25/19at 21:47; Start 09/25/19 at 22:00; Stop 09/25/19 at 22:01; Status DC Potassium Acetate 40 meq/Magnesium Sulfate 5 meq/ Multivitamins 10 ml/Chromium/ Copper/Manganese/ Seleni/Zn 1 ml/ Insulin Human Regular 30 unit/ Total Parenteral Nutrition/Amino Acids/Dextrose/ Fat Emulsion Intravenous 1,920 ml @ 80 mls/hr TPN CONT IV Last administered on 09/26/19at 22:28; Start 09/26/19 at 22:00; Stop 09/27/19 at 21:59; Status DC Sodium Chloride 500 ml @ 500 mls/hr 1X ONCE IV Last administered on 09/27/19at 06:39; Start 09/27/19 at 06:45; Stop 09/27/19 at 07:44; Status DC Potassium Acetate 40 meq/Magnesium Sulfate 5 meq/ Multivitamins 10 ml/Chromium/ Copper/Manganese/ Seleni/Zn 1 ml/ Insulin Human Regular 30 unit/ Total Parenteral Nutrition/Amino Acids/Dextrose/ Fat Emulsion Intravenous 1,920 ml @ 80 mls/hr TPN CONT IV Last administered on 09/27/19at 22:03; Start 09/27/19 at 22:00; Stop 09/28/19 at 21:59; Status DC Metoprolol Tartrate (Lopressor Vial) 5 mg PRN Q6HRS PRN IVP HYPERTENSION Last administered on 11/10/19at 21:19; Start 09/28/19 at 09:00 Potassium Acetate 40 meq/Magnesium Sulfate 5 meq/ Multivitamins 10 ml/Chromium/ Copper/Manganese/ Seleni/Zn 1 ml/ Insulin Human Regular 30 unit/ Total Parenteral Nutrition/Amino Acids/Dextrose/ Fat Emulsion Intravenous 1,920 ml @ 80 mls/hr TPN CONT IV Last administered on 09/28/19at 21:26; Start 09/28/19 at 22:00; Stop 09/29/19 at 21:59; Status DC Potassium Acetate 40 meq/Magnesium Sulfate 5 meq/ Multivitamins 10 ml/Chromium/ Copper/Manganese/ Seleni/Zn 1 ml/ Insulin Human Regular 30 unit/ Total Parenteral Nutrition/Amino Acids/Dextrose/ Fat Emulsion Intravenous 1,920 ml @ 80 mls/hr TPN CONT IV Last administered on 09/29/19at 23:23; Start 09/29/19 at 22:00; Stop 09/30/19 at 21:59; Status DC Potassium Acetate 40 meq/Magnesium Sulfate 5 meq/ Multivitamins 10 ml/Chromium/ Copper/Manganese/ Seleni/Zn 1 ml/ Insulin Human Regular 30 unit/ Total Parenteral Nutrition/Amino Acids/Dextrose/ Fat Emulsion Intravenous 1,920 ml @ 80 mls/hr TPN CONT IV Last administered on 09/30/19at 21:35; Start 09/30/19 at 22:00; Stop 10/01/19 at 21:59; Status DC Furosemide (Lasix) 20 mg 1X ONCE IVP Last administered on 10/01/19at 06:26; Start 10/01/19 at 06:15; Stop 10/01/19 at 06:16; Status DC Methylprednisolone Sodium Succinate (SOLU-Medrol 125MG VIAL) 125 mg 1X ONCE IV Last administered on 10/01/19at 06:26; Start 10/01/19 at 06:15; Stop 10/01/19 at 06:16; Status DC Albuterol/ Ipratropium (Duoneb) 3 ml Q4HRS NEB Last administered on 11/11/19at 07:58; Start 10/01/19 at 08:00 Fentanyl Citrate 30 ml @ 0 mls/hr CONT PRN IV SEE PROTOCOL Last administered on 10/22/19at 08:03; Start 10/01/19 at 06:00; Stop 10/22/19 at 12:42; Status DC Propofol 100 ml @ 0 mls/hr CONT PRN IV SEE PROTOCOL Last administered on 10/08/19at 23:50; Start 10/01/19 at 06:00 Fentanyl Citrate (Fentanyl 2ml Vial) 25 mcg PRN Q1HR PRN IV SEE COMMENTS Last administered on 11/10/19at 22:32; Start 10/01/19 at 06:00 Fentanyl Citrate (Fentanyl 2ml Vial) 50 mcg PRN Q1HR PRN IV SEE COMMENTS Last administered on 11/09/19at 13:03; Start 10/01/19 at 06:00 Chlorhexidine Gluconate (Peridex) 15 ml BID MM ; Start 10/01/19 at 09:00; Stop 10/01/19 at 07:58; Status DC Potassium Acetate 40 meq/Magnesium Sulfate 5 meq/ Multivitamins 10 ml/Chromium/ Copper/Manganese/ Seleni/Zn 1 ml/ Insulin Human Regular 30 unit/ Total Parenteral Nutrition/Amino Acids/Dextrose/ Fat Emulsion Intravenous 1,920 ml @ 80 mls/hr TPN CONT IV Last administered on 10/01/19at 21:19; Start 10/01/19 at 22:00; Stop 10/02/19 at 21:59; Status DC Acetylcysteine (Mucomyst 20% Resp Treatment) 600 mg BID NEB Last administered on 10/07/19at 09:33; Start 10/01/19 at 21:00; Stop 10/07/19 at 10:39; Status DC Magnesium Sulfate 100 ml @ 25 mls/hr 1X ONCE IV Last administered on 10/01/19at 15:48; Start 10/01/19 at 15:45; Stop 10/01/19 at 19:44; Status DC Potassium Acetate 40 meq/Magnesium Sulfate 5 meq/ Multivitamins 10 ml/Chromium/ Copper/Manganese/ Seleni/Zn 1 ml/ Insulin Human Regular 30 unit/ Total Parenteral Nutrition/Amino Acids/Dextrose/ Fat Emulsion Intravenous 1,920 ml @ 80 mls/hr TPN CONT IV Last administered on 10/02/19at 21:35; Start 10/02/19 at 22:00; Stop 10/03/19 at 21:59; Status DC Potassium Chloride/Water 100 ml @ 100 mls/hr Q1H IV Last administered on 10/03/19at 08:31; Start 10/03/19 at 07:00; Stop 10/03/19 at 08:59; Status DC Potassium Acetate 40 meq/Magnesium Sulfate 5 meq/ Multivitamins 10 ml/Chromium/ Copper/Manganese/ Seleni/Zn 1 ml/ Insulin Human Regular 30 unit/ Total Parenteral Nutrition/Amino Acids/Dextrose/ Fat Emulsion Intravenous 1,920 ml @ 80 mls/hr TPN CONT IV Last administered on 10/03/19at 21:54; Start 10/03/19 at 22:00; Stop 10/04/19 at 19:34; Status DC Lidocaine HCl (Buffered Lidocaine 1%) 3 ml STK-MED ONCE .ROUTE ; Start 10/03/19 at 12:14; Stop 10/03/19 at 12:14; Status DC Lidocaine HCl (Buffered Lidocaine 1%) 3 ml 1X ONCE IJ Last administered on 10/03/19at 13:11; Start 10/03/19 at 13:00; Stop 10/03/19 at 13:01; Status DC Magnesium Sulfate 50 ml @ 25 mls/hr 1X ONCE IV ; Start 10/04/19 at 08:15; Stop 10/04/19 at 10:14; Status DC Potassium Acetate 40 meq/Magnesium Sulfate 10 meq/ Multivitamins 10 ml/Chromium/ Copper/Manganese/ Seleni/Zn 1 ml/ Insulin Human Regular 20 unit/ Total Parenteral Nutrition/Amino Acids/Dextrose/ Fat Emulsion Intravenous 1,920 ml @ 80 mls/hr TPN CONT IV Last administered on 10/04/19at 21:32; Start 10/04/19 at 22:00; Stop 10/05/19 at 21:59; Status DC Potassium Chloride/Water 100 ml @ 100 mls/hr Q1H IV Last administered on 10/05/19at 09:12; Start 10/05/19 at 08:00; Stop 10/05/19 at 09:59; Status DC Alteplase, Recombinant (Cathflo For Central Catheter Clearance) 4 mg 1X ONCE INT CAT ; Start 10/05/19 at 09:15; Stop 10/05/19 at 09:16; Status UNV Alteplase, Recombinant (Cathflo For Central Catheter Clearance) 4 mg 1X ONCE INT CAT ; Start 10/05/19 at 09:15; Stop 10/05/19 at 09:16; Status UNV Alteplase, Recombinant (Cathflo For Central Catheter Clearance) 4 mg 1X ONCE I NT CAT ; Start 10/05/19 at 09:15; Stop 10/05/19 at 09:16; Status UNV Alteplase, Recombinant 4 mg/ Sodium Chloride 20 ml @ 20 mls/hr 1X ONCE IV Last administered on 10/05/19at 10:10; Start 10/05/19 at 10:00; Stop 10/05/19 at 10:59; Status DC Alteplase, Recombinant 4 mg/ Sodium Chloride 20 ml @ 20 mls/hr 1X ONCE IV Last administered on 10/05/19at 10:09; Start 10/05/19 at 10:00; Stop 10/05/19 at 10:59; Status DC Alteplase, Recombinant 4 mg/ Sodium Chloride 20 ml @ 20 mls/hr 1X ONCE IV Last administered on 10/05/19at 10:09; Start 10/05/19 at 10:00; Stop 10/05/19 at 10:59; Status DC Potassium Acetate 60 meq/Magnesium Sulfate 10 meq/ Multivitamins 10 ml/Chromium/ Copper/Manganese/ Seleni/Zn 1 ml/ Insulin Human Regular 20 unit/ Total Parenteral Nutrition/Amino Acids/Dextrose/ Fat Emulsion Intravenous 1,920 ml @ 80 mls/hr TPN CONT IV Last administered on 10/05/19at 21:55; Start 10/05/19 at 22:00; Stop 10/06/19 at 21:59; Status DC Albumin Human 500 ml @ 125 mls/hr 1X ONCE IV Last administered on 10/06/19at 12:01; Start 10/06/19 at 11:15; Stop 10/06/19 at 15:14; Status DC Sodium Chloride 500 ml @ 500 mls/hr 1X ONCE IV Last administered on 10/06/19at 13:50; Start 10/06/19 at 11:15; Stop 10/06/19 at 12:14; Status DC Potassium Acetate 60 meq/Magnesium Sulfate 14 meq/ Multivitamins 10 ml/Chromium/ Copper/Manganese/ Seleni/Zn 1 ml/ Insulin Human Regular 20 unit/ Total Parenteral Nutrition/Amino Acids/Dextrose/ Fat Emulsion Intravenous 1,920 ml @ 80 mls/hr TPN CONT IV Last administered on 10/06/19at 22:26; Start 10/06/19 at 22:00; Stop 10/07/19 at 21:59; Status DC Ciprofloxacin/ Dextrose 200 ml @ 200 mls/hr Q12HR IV Last administered on 10/13/19at 08:27; Start 10/06/19 at 21:00; Stop 10/13/19 at 08:56; Status DC Albumin Human 250 ml @ 62.5 mls/hr 1X ONCE IV Last administered on 10/07/19at 11:09; Start 10/07/19 at 11:00; Stop 10/07/19 at 14:59; Status DC Furosemide (Lasix) 20 mg 1X ONCE IVP Last administered on 10/07/19at 14:52; Start 10/07/19 at 10:45; Stop 10/07/19 at 10:49; Status DC Potassium Acetate 60 meq/Magnesium Sulfate 14 meq/ Multivitamins 10 ml/Chromium/ Copper/Manganese/ Seleni/Zn 1 ml/ Insulin Human Regular 15 unit/ Total Parenteral Nutrition/Amino Acids/Dextrose/ Fat Emulsion Intravenous 1,920 ml @ 80 mls/hr TPN CONT IV Last administered on 10/07/19at 22:08; Start 10/07/19 at 22:00; Stop 10/08/19 at 21:59; Status DC Potassium Acetate 60 meq/Magnesium Sulfate 14 meq/ Multivitamins 10 ml/Chromium/ Copper/Manganese/ Seleni/Zn 1 ml/ Insulin Human Regular 15 unit/ Total Parenteral Nutrition/Amino Acids/Dextrose/ Fat Emulsion Intravenous 1,920 ml @ 80 mls/hr TPN CONT IV Last administered on 10/08/19at 22:12; Start 10/08/19 at 22:00; Stop 10/09/19 at 21:59; Status DC Potassium Acetate 60 meq/Magnesium Sulfate 14 meq/ Multivitamins 10 ml/Chromium/ Copper/Manganese/ Seleni/Zn 1 ml/ Insulin Human Regular 15 unit/ Total Parenteral Nutrition/Amino Acids/Dextrose/ Fat Emulsion Intravenous 1,920 ml @ 80 mls/hr TPN CONT IV Last administered on 10/09/19at 22:22; Start 10/09/19 at 22:00; Stop 10/10/19 at 21:59; Status DC Furosemide (Lasix) 20 mg 1X ONCE IVP Last administered on 10/10/19at 11:07; Start 10/10/19 at 10:30; Stop 10/10/19 at 10:34; Status DC Potassium Acetate 60 meq/Magnesium Sulfate 14 meq/ Multivitamins 10 ml/Chromium/ Copper/Manganese/ Seleni/Zn 1 ml/ Insulin Human Regular 15 unit/ Sodium Chloride 20 meq/Total Parenteral Nutrition/Amino Acids/Dextrose/ Fat Emulsion Intravenous 1,920 ml @ 80 mls/hr TPN CONT IV Last administered on 10/10/19at 21:54; Start 10/10/19 at 22:00; Stop 10/11/19 at 21:59; Status DC Potassium Acetate 30 meq/Magnesium Sulfate 14 meq/ Multivitamins 10 ml/Chromium/ Copper/Manganese/ Seleni/Zn 1 ml/ Insulin Human Regular 15 unit/ Sodium Chloride 20 meq/Potassium Chloride 30 meq/ Total Parenteral Nutrition/Amino Acid s/Dextrose/ Fat Emulsion Intravenous 1,920 ml @ 80 mls/hr TPN CONT IV Last administered on 10/11/19at 21:46; Start 10/11/19 at 22:00; Stop 10/12/19 at 21:59; Status DC Sodium Chloride 80 meq/Potassium Chloride 30 meq/ Potassium Acetate 30 meq/Magnesium Sulfate 14 meq/ Multivitamins 10 ml/Chromium/ Copper/Manganese/ Seleni/Zn 1 ml/ Insulin Human Regular 15 unit/ Total Parenteral Nutrition/Amino Acids/Dextrose/ Fat Emulsion Intravenous 1,920 ml @ 80 mls/hr TPN CONT IV Last administered on 10/12/19at 22:33; Start 10/12/19 at 22:00; Stop 10/13/19 at 21:59; Status DC Furosemide (Lasix) 40 mg 1X ONCE IVP Last administered on 10/12/19at 16:27; Start 10/12/19 at 15:30; Stop 10/12/19 at 15:33; Status DC Albumin Human 250 ml @ 62.5 mls/hr 1X ONCE IV Last administered on 10/12/19at 16:27; Start 10/12/19 at 15:30; Stop 10/12/19 at 19:29; Status DC Sodium Chloride 80 meq/Potassium Chloride 30 meq/ Potassium Acetate 30 meq/Magnesium Sulfate 14 meq/ Multivitamins 10 ml/Chromium/ Copper/Manganese/ Seleni/Zn 1 ml/ Insulin Human Regular 15 unit/ Total Parenteral Nutrition/Amino Acids/Dextrose/ Fat Emulsion Intravenous 1,920 ml @ 80 mls/hr TPN CONT IV Last administered on 10/13/19at 22:25; Start 10/13/19 at 22:00; Stop 10/14/19 at 21:59; Status DC Sodium Chloride 80 meq/Potassium Chloride 30 meq/ Potassium Acetate 30 meq/Magnesium Sulfate 14 meq/ Multivitamins 10 ml/Chromium/ Copper/Manganese/ Seleni/Zn 1 ml/ Insulin Human Regular 15 unit/ Total Parenteral Nutrition/Amino Acids/Dextrose/ Fat Emulsion Intravenous 1,920 ml @ 80 mls/hr TPN CONT IV Last administered on 10/14/19at 21:32; Start 10/14/19 at 22:00; Stop 10/15/19 at 21:59; Status DC Sodium Chloride 80 meq/Potassium Chloride 30 meq/ Potassium Acetate 30 meq/Magnesium Sulfate 14 meq/ Multivitamins 10 ml/Chromium/ Copper/Manganese/ Seleni/Zn 1 ml/ Insulin Human Regular 15 unit/ Total Parenteral Nutrition/Amino Acids/Dextrose/ Fat Emulsion Intravenous 1,920 ml @ 80 mls/hr TPN CONT IV Last administered on 10/15/19at 21:53; Start 10/15/19 at 22:00; Stop 10/16/19 at 21:59; Status DC Acetylcysteine (Mucomyst 20% Resp Treatment) 600 mg RTBID NEB Last administered on 11/11/19at 07:58; Start 10/15/19 at 12:00 Sodium Chloride 80 meq/Potassium Chloride 30 meq/ Potassium Acetate 30 meq/Magnesium Sulfate 14 meq/ Multivitamins 10 ml/Chromium/ Copper/Manganese/ Seleni/Zn 1 ml/ Insulin Human Regular 15 unit/ Total Parenteral Nutrition/Amino Acids/Dextrose/ Fat Emulsion Intravenous 1,920 ml @ 80 mls/hr TPN CONT IV Last administered on 10/16/19at 22:06; Start 10/16/19 at 22:00; Stop 10/17/19 at 21:59; Status DC Meropenem 500 mg/ Sodium Chloride 50 ml @ 100 mls/hr Q6HRS IV Last administered on 11/08/19at 06:15; Start 10/16/19 at 18:00; Stop 11/08/19 at 08:23; Status DC Daptomycin 500 mg/ Sodium Chloride 50 ml @ 100 mls/hr Q24H IV Last administered on 10/24/19at 21:47; Start 10/16/19 at 19:00; Stop 10/25/19 at 08:13; Status DC Sodium Chloride 80 meq/Potassium Chloride 30 meq/ Potassium Acetate 30 meq/Magnesium Sulfate 14 meq/ Multivitamins 10 ml/Chromium/ Copper/Manganese/ S thien/Zn 1 ml/ Insulin Human Regular 15 unit/ Total Parenteral Nutrition/Amino Acids/Dextrose/ Fat Emulsion Intravenous 1,920 ml @ 80 mls/hr TPN CONT IV Last administered on 10/17/19at 22:09; Start 10/17/19 at 22:00; Stop 10/18/19 at 21:59; Status DC Heparin Sodium (Porcine) 1000 unit/Sodium Chloride 1,001 ml @ 1,001 mls/hr 1X ONCE IRR ; Start 10/18/19 at 06:00; Stop 10/18/19 at 06:59; Status DC Propofol (Diprivan) 200 mg STK-MED ONCE IV ; Start 10/18/19 at 07:44; Stop 10/18/19 at 07:44; Status DC Lidocaine HCl (Lidocaine Pf 2% Vial) 5 ml STK-MED ONCE .ROUTE ; Start 10/18/19 at 07:44; Stop 10/18/19 at 07:44; Status DC Fentanyl Citrate (Fentanyl 2ml Vial) 100 mcg STK-MED ONCE .ROUTE ; Start 10/18/19 at 07:44; Stop 10/18/19 at 07:44; Status DC Rocuronium Vernal (Zemuron) 100 mg STK-MED ONCE .ROUTE ; Start 10/18/19 at 07:44; Stop 10/18/19 at 07:44; Status DC Micafungin Sodium 100 mg/Dextrose 100 ml @ 100 mls/hr Q24H IV Last administered on 11/11/19at 08:24; Start 10/18/19 at 08:30 Bupivacaine HCl/ Epinephrine Bitart (Sensorcain-Epi 0.5%-1:[id number] Mpf) 30 ml STK-MED ONCE .ROUTE ; Start 10/18/19 at 08:34; Stop 10/18/19 at 08:35; Status DC Iohexol (Omnipaque 300 Mg/ml) 50 ml STK-MED ONCE .ROUTE Last administered on 10/18/19at 13:30; Start 10/18/19 at 08:35; Stop 10/18/19 at 08:35; Status DC Sodium Chloride 80 meq/Potassium Chloride 30 meq/ Potassium Acetate 30 meq/Magnesium Sulfate 14 meq/ Multivitamins 10 ml/Chromium/ Copper/Manganese/ Seleni/Zn 1 ml/ Insulin Human Regular 15 unit/ Total Parenteral Nutrition/Amino Acids/Dextrose/ Fat Emulsion Intravenous 1,920 ml @ 80 mls/hr TPN CONT IV Last administered on 10/19/19at 01:22; Start 10/18/19 at 22:00; Stop 10/19/19 at 21:59; Status DC Phenylephrine HCl (Brayden-Synephrine Inj) 10 mg STK-MED ONCE .ROUTE ; Start 10/18/19 at 10:15; Stop 10/18/19 at 10:15; Status DC Desflurane (Suprane) 90 ml STK-MED ONCE IH ; Start 10/18/19 at 10:18; Stop 10/18/19 at 10:19; Status DC Albumin Human 500 ml @ As Directed STK-MED ONCE IV ; Start 10/18/19 at 11:06; Stop 10/18/19 at 11:06; Status DC Vasopressin (Vasostrict) 20 unit STK-MED ONCE .ROUTE ; Start 10/18/19 at 12:23; Stop 10/18/19 at 12:23; Status DC Phenylephrine HCl (Brayden-Synephrine Inj) 10 mg STK-MED ONCE .ROUTE ; Start 10/18/19 at 13:33; Stop 10/18/19 at 13:33; Status DC Phenylephrine HCl (Brayden-Synephrine Inj) 10 mg STK-MED ONCE .ROUTE ; Start 10/18/19 at 13:33; Stop 10/18/19 at 13:33; Status DC Ondansetron HCl (Zofran) 4 mg STK-MED ONCE .ROUTE ; Start 10/18/19 at 13:33; Stop 10/18/19 at 13:33; Status DC Enoxaparin Sodium (Lovenox 40mg Syringe) 40 mg Q24H SQ Last administered on 11/11/19at 08:25; Start 10/19/19 at 08:00 Sodium Chloride (Normal Saline Flush) 3 ml QSHIFT PRN IV AFTER MEDS AND BLOOD DRAWS; Start 10/18/19 at 14:45 Naloxone HCl (Narcan) 0.4 mg PRN Q2MIN PRN IV SEE INSTRUCTIONS; Start 10/18/19 at 14:45 Sodium Chloride 1,000 ml @ 25 mls/hr Q24H IV Last administered on 11/08/19at 14 :54; Start 10/18/19 at 14:33 Morphine Sulfate (Morphine Sulfate) 1 mg PRN Q1HR PRN IV PAIN; Start 10/18/19 at 14:45 Midazolam HCl 100 mg/Sodium Chloride 100 ml @ 1 mls/hr CONT PRN IV SEE I/O RECORD Last administered on 10/21/19at 18:48; Start 10/18/19 at 14:45 Phenylephrine HCl (PHENYLEPHRINE in 0.9% NACL PF) 1 mg STK-MED ONCE IV ; Start 10/18/19 at 14:44; Stop 10/18/19 at 14:45; Status DC Ephedrine Sulfate (ePHEDrine PF IN SALINE SYRINGE) 50 mg STK-MED ONCE IV ; Start 10/18/19 at 14:45; Stop 10/18/19 at 14:45; Status DC Vasopressin 20 unit/Dextrose 101 ml @ 12 mls/hr CONT PRN IV SEE I/O RECORD Last administered on 10/25/19at 04:17; Start 10/18/19 at 15:30 Sodium Chloride 1,000 ml @ 1,000 mls/hr 1X ONCE IV Last administered on 10/18/19at 15:42; Start 10/18/19 at 15:45; Stop 10/18/19 at 16:44; Status DC Albumin Human 500 ml @ 125 mls/hr 1X ONCE IV ; Start 10/18/19 at 16:00; Stop 10/18/19 at 19:59; Status DC Albumin Human 500 ml @ 125 mls/hr PRN Q1HR PRN IV PER PROTOCOL; Start 10/18/19 at 15:45 Magnesium Sulfate 50 ml @ 25 mls/hr 1X ONCE IV Last administered on 10/18/19at 17:02; Start 10/18/19 at 16:30; Stop 10/18/19 at 18:29; Status DC Sodium Bicarbonate (Sodium Bicarb Adult 8.4% Syr) 50 meq STK-MED ONCE .ROUTE ; Start 10/18/19 at 16:20; Stop 10/18/19 at 16:20; Status DC Sodium Bicarbonate (Sodium Bicarb Adult 8.4% Syr) 100 meq 1X ONCE IV Last administered on 10/18/19at 17:07; Start 10/18/19 at 16:30; Stop 10/18/19 at 16:31; Status DC Sodium Bicarbonate 150 meq/Dextrose 1,150 ml @ 75 mls/hr 1X ONCE IV Last administered on 10/18/19at 20:02; Start 10/18/19 at 16:30; Stop 10/19/19 at 07:49; Status DC Sodium Chloride 80 meq/Potassium Chloride 30 meq/ Potassium Acetate 30 meq/Magnesium Sulfate 14 meq/ Multivitamins 10 ml/Chromium/ Copper/Manganese/ Se dinorah/Zn 1 ml/ Insulin Human Regular 15 unit/ Total Parenteral Nutrition/Amino Acids/Dextrose/ Fat Emulsion Intravenous 1,920 ml @ 80 mls/hr TPN CONT IV Last administered on 10/19/19at 23:05; Start 10/19/19 at 22:00; Stop 10/20/19 at 21:59; Status DC Sodium Chloride 100 meq/Potassium Chloride 30 meq/ Potassium Acetate 30 meq/Magnesium Sulfate 12 meq/ Multivitamins 10 ml/Chromium/ Copper/Manganese/ Seleni/Zn 1 ml/ Insulin Human Regular 15 unit/ Total Parenteral Nutrition/Amino Acids/Dextrose/ Fat Emulsion Intravenous 1,920 ml @ 80 mls/hr TPN CONT IV Last administered on 10/20/19at 21:52; Start 10/20/19 at 22:00; Stop 10/21/19 at 21:59; Status DC Sodium Chloride 100 meq/Potassium Chloride 30 meq/ Potassium Acetate 30 meq/Magnesium Sulfate 12 meq/ Multivitamins 10 ml/Chromium/ Copper/Manganese/ Seleni/Zn 1 ml/ Insulin Human Regular 15 unit/ Total Parenteral Nutrition/Amino Acids/Dextrose/ Fat Emulsion Intravenous 1,920 ml @ 80 mls/hr TPN CONT IV Last administered on 10/21/19at 21:46; Start 10/21/19 at 22:00; Stop 10/22/19 at 21:59; Status DC Sodium Chloride 100 meq/Potassium Chloride 30 meq/ Potassium Acetate 30 meq/Magnesium Sulfate 12 meq/ Multivitamins 10 ml/Chromium/ Copper/Manganese/ Seleni/Zn 1 ml/ Insulin Human Regular 15 unit/ Total Parenteral Nutrition/Amino Acids/Dextrose/ Fat Emulsion Intravenous 1,800 ml @ 75 mls/hr TPN CONT IV Last administered on 10/22/19at 22:04; Start 10/22/19 at 22:00; Stop 10/23/19 at 21:59; Status DC Fentanyl Citrate 55 ml @ 0 mls/hr CONT PRN IV SEE COMMENTS Last administered on 10/24/19at 23:55; Start 10/22/19 at 13:00; Stop 10/27/19 at 17:28; Status DC Sodium Chloride 100 meq/Potassium Chloride 30 meq/ Potassium Acetate 30 meq/Magnesium Sulfate 12 meq/ Multivitamins 10 ml/Chromium/ Copper/Manganese/ Seleni/Zn 1 ml/ Insulin Human Regular 15 unit/ Total Parenteral Nutrition/Amino Acids/Dextrose/ Fat Emulsion Intravenous 1,680 ml @ 70 mls/hr TPN CONT IV [facility] st administered on 10/23/19at 21:23; Start 10/23/19 at 22:00; Stop 10/24/19 at 21:59; Status DC Sodium Chloride 110 meq/Potassium Chloride 30 meq/ Potassium Acetate 30 meq/Magnesium Sulfate 15 meq/ Multivitamins 10 ml/Chromium/ Copper/Manganese/ Seleni/Zn 1 ml/ Insulin Human Regular 15 unit/ Total Parenteral Nutrition/Amino Acids/Dextrose/ Fat Emulsion Intravenous 1,680 ml @ 70 mls/hr TPN CONT IV Last administered on 10/24/19at 21:48; Start 10/24/19 at 22:00; Stop 10/25/19 at 21:59; Status DC Sodium Chloride 110 meq/Potassium Chloride 30 meq/ Potassium Acetate 30 meq/Magnesium Sulfate 15 meq/ Multivitamins 10 ml/Chromium/ Copper/Manganese/ Seleni/Zn 1 ml/ Insulin Human Regular 15 unit/ Total Parenteral Nutrition/Amino Acids/Dextrose/ Fat Emulsion Intravenous 1,680 ml @ 70 mls/hr TPN CONT IV Last administered on 10/25/19at 21:33; Start 10/25/19 at 22:00; Stop 10/26/19 at 21:59; Status DC Sodium Chloride 110 meq/Potassium Chloride 30 meq/ Potassium Acetate 30 meq/Magnesium Sulfate 15 meq/ Multivitamins 10 ml/Chromium/ Copper/Manganese/ Seleni/Zn 1 ml/ Insulin Human Regular 15 unit/ Total Parenteral Nutrition/Amino Acids/Dextrose/ Fat Emulsion Intravenous 1,680 ml @ 70 mls/hr TPN CONT IV Last administered on 10/26/19at 21:51; Start 10/26/19 at 22:00; Stop 10/27/19 at 21:59; Status DC Sodium Chloride 90 meq/Potassium Chloride 30 meq/ Potassium Acetate 30 meq/Magnesium Sulfate 15 meq/ Multivitamins 10 ml/Chromium/ Copper/Manganese/ Seleni/Zn 1 ml/ Insulin Human Regular 15 unit/ Total Parenteral Nutrition/Amino Acids/Dextrose/ Fat Emulsion Intravenous 1,680 ml @ 70 mls/hr TPN CONT IV Last administered on 10/27/19at 22:38; Start 10/27/19 at 22:00; Stop 10/28/19 at 21:59; Status DC Fentanyl Citrate 30 ml @ 0 mls/hr CONT PRN IV SEE I/O RECORD; Start 10/27/19 at 17:30 Fentanyl (Duragesic 12mcg/ Hr Patch) 1 patch Q3DAYS TD Last administered on 11/09/19at 09:00; Start 10/28/19 at 09:00 Sodium Chloride 90 meq/Potassium Chloride 30 meq/ Potassium Acetate 30 meq/Magnesium Sulfate 15 meq/ Multivitamins 10 ml/Chromium/ Copper/Manganese/ Seleni/Zn 1 ml/ Insulin Human Regular 15 unit/ Total Parenteral Nutrition/Amino Acids/Dextrose/ Fat Emulsion Intravenous 1,680 ml @ 70 mls/hr TPN CONT IV Last administered on 10/28/19at 21:59; Start 10/28/19 at 22:00; Stop 10/29/19 at 21:59; Status DC Sodium Chloride 90 meq/Potassium Chloride 30 meq/ Potassium Acetate 30 meq/Magnesium Sulfate 15 meq/ Multivitamins 10 ml/Chromium/ Copper/Manganese/ Seleni/Zn 1 ml/ Insulin Human Regular 15 unit/ Total Parenteral Nutrition/Amino Acids/Dextrose/ Fat Emulsion Intravenous 1,680 ml @ 70 mls/hr TPN CONT IV Last administered on 10/29/19at 21:35; Start 10/29/19 at 22:00; Stop 10/30/19 at 21:59; Status DC Vancomycin HCl (Vanco Per Pharmacy) 1 each PRN DAILY PRN MC SEE COMMENTS Last administered on 11/01/19at 02:46; Start 10/30/19 at 09:15; Stop 11/02/19 at 07:41; Status DC Ciprofloxacin/ Dextrose 200 ml @ 200 mls/hr Q12HR IV Last administered on 11/07/19at 21:02; Start 10/30/19 at 10:00; Stop 11/08/19 at 08:20; Status DC Vancomycin HCl 2 gm/Sodium Chloride 500 ml @ 250 mls/hr 1X ONCE IV Last administered on 10/30/19at 10:34; Start 10/30/19 at 10:00; Stop 10/30/19 at 11:59; Status DC Sodium Chloride 90 meq/Potassium Chloride 30 meq/ Potassium Acetate 30 meq/Magnesium Sulfate 15 meq/ Multivitamins 10 ml/Chromium/ Copper/Manganese/ Seleni/Zn 1 ml/ Insulin Human Regular 15 unit/ Total Parenteral Nutrition/Amino Acids/Dextrose/ Fat Emulsion Intravenous 1,680 ml @ 70 mls/hr TPN CONT IV Last administered on 10/30/19at 22:02; Start 10/30/19 at 22:00; Stop 10/31/19 at 21:59; Status DC Diphenhydramine HCl (Benadryl) 25 mg 1X ONCE IVP Last administered on 10/30/19at 14:26; Start 10/30/19 at 14:30; Stop 10/30/19 at 14:31; Status DC Vancomycin HCl 1.5 gm/Sodium Chloride 500 ml @ 250 mls/hr Q8H IV Last administered on 10/31/19at 03:08; Start 10/30/19 at 18:30; Stop 10/31/19 at 12:24; Status DC Vancomycin HCl (Vancomycin Trough Level) 1 each 1X ONCE MC Last administered on 10/31/19at 10:00; Start 10/31/19 at 10:00; Stop 10/31/19 at 10:01; Status DC Sodium Chloride 90 meq/Potassium Chloride 30 meq/ Potassium Acetate 30 meq/Magnesium Sulfate 15 meq/ Multivitamins 10 ml/Chromium/ Copper/Manganese/ Seleni/Zn 1 ml/ Insulin Human Regular 15 unit/ Total Parenteral Nutrition/Amino Acids/Dextrose/ Fat Emulsion Intravenous 1,680 ml @ 70 mls/hr TPN CONT IV Last administered on 10/31/19at 22:13; Start 10/31/19 at 22:00; Stop 11/01/19 at 21:59; Status DC Vancomycin HCl (Vancomycin Random Level) 1 each 1X ONCE MC Last administered on 11/01/19at 01:00; Start 11/01/19 at 01:00; Stop 11/01/19 at 01:01; Status DC Vancomycin HCl 1.5 gm/Sodium Chloride 500 ml @ 250 mls/hr Q12H IV Last administered on 11/01/19at 22:07; Start 11/01/19 at 10:00; Stop 11/02/19 at 07:41; Status DC Vancomycin HCl (Vancomycin Trough Level) 1 each 1X ONCE MC ; Start 11/02/19 at 09:30; Stop 11/02/19 at 09:31; Status Cancel Sodium Chloride 90 meq/Potassium Chloride 30 meq/ Potassium Acetate 30 meq/Magnesium Sulfate 15 meq/ Multivitamins 10 ml/Chromium/ Copper/Manganese/ Seleni/Zn 1 ml/ Insulin Human Regular 15 unit/ Total Parenteral Nutrition/Amino Acids/Dextrose/ Fat Emulsion Intravenous 1,680 ml @ 70 mls/hr TPN CONT IV Last administered on 11/01/19at 22:08; Start 11/01/19 at 22:00; Stop 11/02/19 at 21:59; Status DC Alteplase, Recombinant (Cathflo For Central Catheter Clearance) 1 mg 1X ONCE INT CAT Last administered on 11/01/19at 11:49; Start 11/01/19 at 11:00; Stop 11/01/19 at 11:01; Status DC Daptomycin 500 mg/ Sodium Chloride 50 ml @ 100 mls/hr Q24H IV Last administered on 11/11/19at 08:25; Start 11/02/19 at 09:00; Stop 11/11/19 at 08:38; Status DC Sodium Chloride 90 meq/Potassium Chloride 30 meq/ Potassium Acetate 30 meq/Magnesium Sulfate 15 meq/ Multivitamins 10 ml/Chromium/ Copper/Manganese/ Seleni/Zn 1 ml/ Insulin Human Regular 15 unit/ Total Parenteral Nutrition/Amino Acids/Dextrose/ Fat Emulsion Intravenous 1,680 ml @ 70 mls/hr TPN CONT IV Last administered on 11/02/19at 22:55; Start 11/02/19 at 22:00; Stop 11/03/19 at 21:59; Status DC Sodium Chloride 90 meq/Potassium Chloride 30 meq/ Potassium Acetate 30 meq/Magnesium Sulfate 15 meq/ Multivitamins 10 ml/Chromium/ Copper/Manganese/ Seleni/Zn 1 ml/ Insulin Human Regular 15 unit/ Total Parenteral Nutrition/Amino Acids/Dextrose/ Fat Emulsion Intravenous 1,680 ml @ 70 mls/hr TPN CONT IV L ast administered on 11/03/19at 22:06; Start 11/03/19 at 22:00; Stop 11/04/19 at 21:59; Status DC Diphenhydramine HCl (Benadryl) 50 mg STK-MED ONCE .ROUTE ; Start 11/03/19 at 18:34; Stop 11/03/19 at 18:35; Status DC Diphenhydramine HCl (Benadryl) 25 mg 1X ONCE IM ; Start 11/03/19 at 18:45; Stop 11/03/19 at 18:46; Status DC Diphenhydramine HCl (Benadryl) 25 mg 1X ONCE IVP Last administered on 11/03/19at 18:56; Start 11/03/19 at 19:00; Stop 11/03/19 at 19:01; Status DC Alprazolam (Xanax) 0.5 mg PRN TID PRN PO ANXIETY / AGITATION Last administered on 11/10/19at 11:49; Start 11/04/19 at 08:00; Stop 11/10/19 at 15:54; Status DC Sodium Chloride 110 meq/Potassium Chloride 30 meq/ Potassium Acetate 30 meq/Magnesium Sulfate 15 meq/ Multivitamins 10 ml/Chromium/ Copper/Manganese/ Seleni/Zn 1 ml/ Insulin Human Regular 15 unit/ Total Parenteral Nutrition/Amino Acids/Dextrose/ Fat Emulsion Intravenous 1,680 ml @ 70 mls/hr TPN CONT IV Last administered on 11/04/19at 21:21; Start 11/04/19 at 22:00; Stop 11/05/19 at 21:59; Status DC Sodium Chloride 110 meq/Potassium Chloride 30 meq/ Potassium Acetate 30 meq/Magnesium Sulfate 15 meq/ Multivitamins 10 ml/Chromium/ Copper/Manganese/ Seleni/Zn 1 ml/ Insulin Human Regular 15 unit/ Total Parenteral Nutrition/Amino Acids/Dextrose/ Fat Emulsion Intravenous 1,680 ml @ 70 mls/hr TPN CONT IV Last administered on 11/05/19at 22:01; Start 11/05/19 at 22:00; Stop 11/06/19 at 21:59; Status DC Alteplase, Recombinant (Cathflo For Central Catheter Clearance) 1 mg 1X ONCE INT CAT Last administered on 11/06/19at 08:23; Start 11/06/19 at 08:15; Stop 11/06/19 at 08:16; Status DC Sodium Chloride 110 meq/Sodium Phosphate 10 mmol/ Potassium Chloride 30 meq/ Potassium Acetate 30 meq/Magnesium Sulfate 15 meq/ Multivitamins 10 ml/Chromium/ Copper/Manganese/ Seleni/Zn 1 ml/ Insulin Human Regular 15 unit/ Total Parenteral Nutrition/Amino Acids/Dextrose/ Fat Emulsion Intravenous 1,680 ml @ 70 mls/hr TPN CONT IV Last administered on 11/06/19at 22:03; Start 11/06/19 at 22:00; Stop 11/07/19 at 21:59; Status DC Sodium Chloride 120 meq/Sodium Phosphate 10 mmol/ Potassium Chloride 30 meq/ Potassium Acetate 30 meq/Magnesium Sulfate 15 meq/ Multivitamins 10 ml/Chromium/ Copper/Manganese/ Seleni/Zn 1 ml/ Insulin Human Regular 15 unit/ Total Parenteral Nutrition/Amino Acids/Dextrose/ Fat Emulsion Intravenous 1,680 ml @ 70 mls/hr TPN CONT IV Last administered on 11/07/19at 22:08; Start 11/07/19 at 22:00; Stop 11/08/19 at 21:59; Status DC Ceftazidime/ Avibactam 2.5 gm/ Sodium Chloride 100 ml @ 50 mls/hr Q8HRS IV Last administered on 11/09/19at 05:32; Start 11/08/19 at 14:00; Stop 11/09/19 at 07:48; Status DC Alteplase, Recombinant (Cathflo For Central Catheter Clearance) 1 mg 1X ONCE INT CAT Last administered on 11/08/19at 09:30; Start 11/08/19 at 09:30; Stop 11/08/19 at 09:31; Status DC Sodium Chloride 120 meq/Sodium Phosphate 10 mmol/ Potassium Chloride 30 meq/ Potassium Acetate 30 meq/Magnesium Sulfate 15 meq/ Multivitamins 10 ml/Chromium/ Copper/Manganese/ Seleni/Zn 1 ml/ Insulin Human Regular 15 unit/ Total Parenteral Nutrition/Amino Acids/Dextrose/ Fat Emulsion Intravenous 1,680 ml @ 70 mls/hr TPN CONT IV Last administered on 11/08/19at 22:11; Start 11/08/19 at 22:00; Stop 11/09/19 at 21:59; Status DC Iohexol (Omnipaque 300 Mg/ml) 75 ml 1X ONCE IV Last administered on 11/08/19at 11:30; Start 11/08/19 at 11:30; Stop 11/08/19 at 11:31; Status DC Info (CONTRAST GIVEN -- Rx MONITORING) 1 each PRN DAILY PRN MC SEE COMMENTS; Start 11/08/19 at 11:45; Stop 11/10/19 at 11:44; Status DC Alteplase, Recombinant (Cathflo For Central Catheter Clearance) 1 mg 1X ONCE INT CAT Last administered on 11/08/19at 12:17; Start 11/08/19 at 12:00; Stop 11/08/19 at 12:01; Status DC Cefepime HCl (Maxipime) 2 gm Q12HR IVP Last administered on 11/09/19at 20:53; Start 11/09/19 at 09:00; Stop 11/10/19 at 07:30; Status DC Sodium Chloride 120 meq/Sodium Phosphate 10 mmol/ Potassium Chloride 30 meq/ Potassium Acetate 30 meq/Magnesium Sulfate 15 meq/ Multivitamins 10 ml/Chromium/ Copper/Manganese/ Seleni/Zn 1 ml/ Insulin Human Regular 15 unit/ Total Parenteral Nutrition/Amino Acids/Dextrose/ Fat Emulsion Intravenous 1,680 ml @ 70 mls/hr TPN CONT IV Last administered on 11/09/19at 21:25; Start 11/09/19 at 22:00; Stop 11/10/19 at 21:59; Status DC Ceftazidime/ Avibactam 2.5 gm/ Sodium Chloride 250 ml @ 125 mls/hr Q8HRS IV Last administered on 11/11/19at 06:00; Start 11/10/19 at 08:00 Sodium Chloride 120 meq/Sodium Phosphate 10 mmol/ Potassium Chloride 30 meq/ Potassium Acetate 30 meq/Magnesium Sulfate 15 meq/ Multivitamins 10 ml/Chromium/ Copper/Manganese/ Seleni/Zn 1 ml/ Insulin Human Regular 15 unit/ Total Parenteral Nutrition/Amino Acids/Dextrose/ Fat Emulsion Intravenous 1,680 ml @ 70 mls/hr TPN CONT IV Last administered on 11/10/19at 22:35; Start 11/10/19 at 22:00; Stop 11/11/19 at 21:59 Alprazolam (Xanax) 0.5 mg PRN QID PRN PO ANXIETY / AGITATION Last administered on 11/10/19at 22:31; Start 11/10/19 at 16:00 Acetaminophen/ Hydrocodone Bitart (Lortab 5/325) 1 tab PRN Q4HRS PRN PO PAIN Last administered on 11/10/19at 20:49; Start 11/10/19 at 16:00 Active Scripts Active Reported Bisoprolol Fumarate 5 Mg Tablet 10 Mg PO DAILY Vitals/I & O Vital Sign - Last 24 Hours 11/10/19 11/10/19 11/10/19 11/10/19 12:00 12:30 15:35 16:00 Temp 97.9 99.0 97.9 99.0 Pulse 145 146 128 Resp 28 32 B/P (MAP) 145/90 (108) 145/90 126/73 (90) Pulse Ox 94 100 93 O2 Delivery Room Air Room Air Room Air 11/10/19 11/10/19 11/10/19 11/10/19 16:32 17:16 19:50 20:00 Resp 36 36 Pulse Ox 96 96 96 O2 Delivery Room Air Room Air Room Air Room Air 11/10/19 11/10/19 11/10/19 11/10/19 20:00 20:49 21:19 22:32 Temp 99.5 99.5 Pulse 140 150 Resp 43 40 35 B/P (MAP) 141/97 (112) 154/95 Pulse Ox 97 97 O2 Delivery Room Air Room Air 11/10/19 11/10/19 11/11/19 11/11/19 23:02 23:04 00:00 01:00 Pulse 130 Resp 38 39 30 B/P (MAP) 121/81 (94) Pulse Ox 97 96 O2 Delivery Room Air Room Air Room Air Nasal Cannula 11/11/19 11/11/19 11/11/19 11/11/19 04:00 06:00 08:00 08:01 Temp 98.8 99.0 98.8 99.0 Pulse 135 133 Resp 37 33 B/P (MAP) 119/68 (85) 123/63 (83) Pulse Ox 98 98 97 O2 Delivery Room Air Room Air Room Air Intake and Output 11/10/19 11/10/19 11/11/19 15:00 23:00 07:00 Intake Total 350 ml 965 ml 1120 ml Output Total 945 ml 555 ml 1370 ml Balance -595 ml 410 ml -250 ml Justicifation of Admission Dx: Justifications for Admission: Justification of Admission Dx: Yes CARIN FERNANDEZ MD Nov 11, 2019 09:07
[2019-11-11] MEDS: ALPRAZolam 0.5 MG TABLET PO PRN ×3 (09:51→19:32)
[2019-11-11] MEDS: HYDROcodone/APAP 5/325MG 1 TAB TABLET PO PRN ×3 (09:52→19:34)
--- NOTE | 2019-11-11 10:23 | PDOC ---
Objective: Objective: D/w nurse - lots of KAYLIN output. Vital Signs: Vital Signs Date Time Temp Pulse Resp B/P (MAP) Pulse Ox O2 Delivery O2 Flow Rate FiO2 11/11/19 09:52 36 97 Room Air 11/11/19 08:00 99.0 133 123/63 (83) 99.0 11/10/19 08:43 2.0 Labs: Laboratory Tests Test 11/10/19 12:26 11/10/19 18:12 11/11/19 00:02 11/11/19 06:00 Glucose (Fingerstick) 143 mg/dL 126 mg/dL 138 mg/dL White Blood Count 16.9 x10^3/uL Red Blood Count 2.66 x10^6/uL Hemoglobin 7.9 g/dL Hematocrit 24.3 % Mean Corpuscular Volume 91 fL Mean Corpuscular Hemoglobin 30 pg Mean Corpuscular Hemoglobin Concent 32 g/dL Red Cell Distribution Width 16.7 % Platelet Count 569 x10^3/uL Neutrophils (%) (Auto) 83 % Lymphocytes (%) (Auto) 9 % Monocytes (%) (Auto) 6 % Eosinophils (%) (Auto) 2 % Basophils (%) (Auto) 1 % Neutrophils # (Auto) 14.1 x10^3/uL Lymphocytes # (Auto) 1.5 x10^3/uL Monocytes # (Auto) 1.0 x10^3/uL Eosinophils # (Auto) 0.3 x10^3/uL Basophils # (Auto) 0.1 x10^3/uL Test 11/11/19 06:21 11/11/19 07:30 Glucose (Fingerstick) 150 mg/dL Sodium Level 136 mmol/L Potassium Level 4.2 mmol/L Chloride Level 103 mmol/L Carbon Dioxide Level 26 mmol/L Anion Gap 7 Blood Urea Nitrogen 13 mg/dL Creatinine 0.6 mg/dL Estimated GFR (Cockcroft-Gault) 106.3 BUN/Creatinine Ratio 22 Glucose Level 125 mg/dL Calcium Level 9.4 mg/dL Total Bilirubin 0.5 mg/dL Aspartate Amino Transf (AST/SGOT) 16 U/L Alanine Aminotransferase (ALT/SGPT) 15 U/L Alkaline Phosphatase 129 U/L Total Protein 5.1 g/dL Albumin 1.1 g/dL Albumin/Globulin Ratio 0.3 COMMENTS: CHEST FLUID Procedure Result ------ ------ GRAM STAIN Final Final NO ORGANISMS SEEN. SQUAMOUS EPI CELL:NOT APPLICABLE PMN (WBCs):RARE Unless otherwise specified, Testing Performed by: [address] [address] For Inquires, the Physician may contact the Microbiology department at [phone] ANAEROBIC-AEROBIC CULTURE Preliminary Preliminary No Growth on 11/09/19 at 0957 FEW YEAST on 11/10/19 at 1500 FINAL ID= [FRANCIS PARAPSILOSIS] FRANCIS PARAPSILOSIS BLOOD CULTURE Preliminary NO GROWTH AFTER 2 DAYS PE: GEN: chronically ill LUNGS: room air HEART: tachycardic ABD: drains, on TPN NEURO/PSYCH: awake and alert, waves A/P: S/p pancreatic necrosectomy -- Supportive care. Justicifation of Admission Dx: Justifications for Admission: Justification of Admission Dx: Yes CYNDEE FALCON Nov 11, 2019 10:23
--- NOTE | 2019-11-11 10:30 | NUR ---
Chest tube removed per Dr Hamilton. Dr Hamilton bedside at time of removal. Site cleaned with alcohol and dressed with 2X2 and medi pore tape.
[2019-11-11] MEDS: TPN PER PHARMACY MC PRN (11:30)
--- NOTE | 2019-11-11 11:34 | NUR ---
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, 8 inches Weight: 86.6 kg Current diet: NPO LABS: Sodium: 136 Potassium: 4.2 Chloride: 103 Calcium: 9.4 Corrected Calcium: 11.72 Magnesium: 1.9 (11/09) CO2: 26 SCr: 0.6 Glucose: 125-150 Albumin: 1.1 AST: 16 ALT: 15 TPN FORMULA: TPN TYPE: Central Continuous AMINO ACIDS: 95 gm DEXTROSE: 275 gm LIPIDS: 30 gm SODIUM CHLORIDE: 120 mEq SODIUM ACETATE: - mEq SODIUM PHOSPHATE: 10 mmol POTASSIUM CHLORIDE: 30 mEq POTASSIUM ACETATE: 30 mEq POTASSIUM PHOSPHATE: - mmol MAGNESIUM: 15 mEq CALCIUM: - mEq INSULIN: 15 units MULTIPLE VITAMIN: 10 ml TRACE ELEMENTS: 1 ml ml(s) TPN PLAN: -Macros per nursing informatics analyst recommendations -Electrolytes remain within normal limits, except for corrected calcium. There is no calcium in the TPN at this time. -No noted medication or tube feed changes at this time. Patient remains unable to tolerate tube feeds. -BMP and Phos ordered for 11/12/19. R: Continue TPN with no changes to TPN formulation at this time. Will monitor electrolytes, glucose, and tolerance to TPN. MARVIN RODNEY, [facility], 11/11/19 [id number]
--- NOTE | 2019-11-11 11:39 | PDOC ---
PULMONARY PROGRESS NOTES Subjective Patient with no distress Vitals Vital Signs Date Time Temp Pulse Resp B/P (MAP) Pulse Ox O2 Delivery O2 Flow Rate FiO2 11/11/19 11:26 36 Nasal Cannula 2.0 11/11/19 09:52 97 11/11/19 08:00 99.0 133 123/63 (83) 99.0 ROS: No Nausea, No Chest Pain, No Increase Cough HEENT: Other (trach site ok) Lungs: Crackles Cardiovascular: S1, S2 Abdomen: Soft, Non-tender, Other (multiple KAYLIN drains ) Neuro Exam: Alert Extremities: Other (+1 BLE edema) Skin: Warm Labs Laboratory Tests Test 11/09/19 13:32 11/09/19 17:43 11/10/19 01:25 11/10/19 06:00 Glucose (Fingerstick) 144 mg/dL (70-99) 134 mg/dL (70-99) 132 mg/dL (70-99) Sodium Level 134 mmol/L (136-145) Potassium Level 4.4 mmol/L (3.5-5.1) Chloride Level 102 mmol/L (98-107) Carbon Dioxide Level 28 mmol/L (21-32) Anion Gap 4 (6-14) Blood Urea Nitrogen 14 mg/dL (7-20) Creatinine 0.5 mg/dL (0.6-1.0) Estimated GFR (Cockcroft-Gault) 131.1 Glucose Level 121 mg/dL (70-99) Calcium Level 9.7 mg/dL (8.5-10.1) Phosphorus Level 4.1 mg/dL (2.6-4.7) Magnesium Level 1.9 mg/dL (1.8-2.4) Triglycerides Level 181 mg/dL (0-150) Test 11/10/19 06:04 11/10/19 09:00 11/10/19 12:26 11/10/19 18:12 Glucose (Fingerstick) 117 mg/dL (70-99) 143 mg/dL (70-99) 126 mg/dL (70-99) White Blood Count 18.4 x10^3/uL (4.0-11.0) Red Blood Count 2.92 x10^6/uL (3.50-5.40) Hemoglobin 8.2 g/dL (12.0-15.5) Hematocrit 25.0 % (36.0-47.0) Mean Corpuscular Volume 86 fL (79-100) Mean Corpuscular Hemoglobin 28 pg (25-35) Mean Corpuscular Hemoglobin Concent 33 g/dL (31-37) Red Cell Distribution Width 15.6 % (11.5-14.5) Platelet Count 532 x10^3/uL (140-400) Neutrophils (%) (Auto) 85 % (31-73) Lymphocytes (%) (Auto) 6 % (24-48) Monocytes (%) (Auto) 5 % (0-9) Eosinophils (%) (Auto) 3 % (0-3) Basophils (%) (Auto) 1 % (0-3) Neutrophils # (Auto) 15.7 x10^3/uL (1.8-7.7) Lymphocytes # (Auto) 1.2 x10^3/uL (1.0-4.8) Monocytes # (Auto) 0.9 x10^3/uL (0.0-1.1) Eosinophils # (Auto) 0.6 x10^3/uL (0.0-0.7) Basophils # (Auto) 0.1 x10^3/uL (0.0-0.2) Test 11/11/19 00:02 11/11/19 06:00 11/11/19 06:21 11/11/19 07:30 Glucose (Fingerstick) 138 mg/dL (70-99) 150 mg/dL (70-99) White Blood Count 16.9 x10^3/uL (4.0-11.0) Red Blood Count 2.66 x10^6/uL (3.50-5.40) Hemoglobin 7.9 g/dL (12.0-15.5) Hematocrit 24.3 % (36.0-47.0) Mean Corpuscular Volume 91 fL (79-100) Mean Corpuscular Hemoglobin 30 pg (25-35) Mean Corpuscular Hemoglobin Concent 32 g/dL (31-37) Red Cell Distribution Width 16.7 % (11.5-14.5) Platelet Count 569 x10^3/uL (140-400) Neutrophils (%) (Auto) 83 % (31-73) Lymphocytes (%) (Auto) 9 % (24-48) Monocytes (%) (Auto) 6 % (0-9) Eosinophils (%) (Auto) 2 % (0-3) Basophils (%) (Auto) 1 % (0-3) Neutrophils # (Auto) 14.1 x10^3/uL (1.8-7.7) Lymphocytes # (Auto) 1.5 x10^3/uL (1.0-4.8) Monocytes # (Auto) 1.0 x10^3/uL (0.0-1.1) Eosinophils # (Auto) 0.3 x10^3/uL (0.0-0.7) Basophils # (Auto) 0.1 x10^3/uL (0.0-0.2) Sodium Level 136 mmol/L (136-145) Potassium Level 4.2 mmol/L (3.5-5.1) Chloride Level 103 mmol/L (98-107) Carbon Dioxide Level 26 mmol/L (21-32) Anion Gap 7 (6-14) Blood Urea Nitrogen 13 mg/dL (7-20) Creatinine 0.6 mg/dL (0.6-1.0) Estimated GFR (Cockcroft-Gault) 106.3 BUN/Creatinine Ratio 22 (6-20) Glucose Level 125 mg/dL (70-99) Calcium Level 9.4 mg/dL (8.5-10.1) Total Bilirubin 0.5 mg/dL (0.2-1.0) Aspartate Amino Transf (AST/SGOT) 16 U/L (15-37) Alanine Aminotransferase (ALT/SGPT) 15 U/L (14-59) Alkaline Phosphatase 129 U/L (46-116) Total Protein 5.1 g/dL (6.4-8.2) Albumin 1.1 g/dL (3.4-5.0) Albumin/Globulin Ratio 0.3 (1.0-1.7) Laboratory Tests Test 11/10/19 12:26 11/10/19 18:12 11/11/19 00:02 11/11/19 06:00 Glucose (Fingerstick) 143 mg/dL (70-99) 126 mg/dL (70-99) 138 mg/dL (70-99) White Blood Count 16.9 x10^3/uL (4.0-11.0) Red Blood Count 2.66 x10^6/uL (3.50-5.40) Hemoglobin 7.9 g/dL (12.0-15.5) Hematocrit 24.3 % (36.0-47.0) Mean Corpuscular Volume 91 fL (79-100) Mean Corpuscular Hemoglobin 30 pg (25-35) Mean Corpuscular Hemoglobin Concent 32 g/dL (31-37) Red Cell Distribution Width 16.7 % (11.5-14.5) Platelet Count 569 x10^3/uL (140-400) Neutrophils (%) (Auto) 83 % (31-73) Lymphocytes (%) (Auto) 9 % (24-48) Monocytes (%) (Auto) 6 % (0-9) Eosinophils (%) (Auto) 2 % (0-3) Basophils (%) (Auto) 1 % (0-3) Neutrophils # (Auto) 14.1 x10^3/uL (1.8-7.7) Lymphocytes # (Auto) 1.5 x10^3/uL (1.0-4.8) Monocytes # (Auto) 1.0 x10^3/uL (0.0-1.1) Eosinophils # (Auto) 0.3 x10^3/uL (0.0-0.7) Basophils # (Auto) 0.1 x10^3/uL (0.0-0.2) Test 11/11/19 06:21 11/11/19 07:30 Glucose (Fingerstick) 150 mg/dL (70-99) Sodium Level 136 mmol/L (136-145) Potassium Level 4.2 mmol/L (3.5-5.1) Chloride Level 103 mmol/L (98-107) Carbon Dioxide Level 26 mmol/L (21-32) Anion Gap 7 (6-14) Blood Urea Nitrogen 13 mg/dL (7-20) Creatinine 0.6 mg/dL (0.6-1.0) Estimated GFR (Cockcroft-Gault) 106.3 BUN/Creatinine Ratio 22 (6-20) Glucose Level 125 mg/dL (70-99) Calcium Level 9.4 mg/dL (8.5-10.1) Total Bilirubin 0.5 mg/dL (0.2-1.0) Aspartate Amino Transf (AST/SGOT) 16 U/L (15-37) Alanine Aminotransferase (ALT/SGPT) 15 U/L (14-59) Alkaline Phosphatase 129 U/L (46-116) Total Protein 5.1 g/dL (6.4-8.2) Albumin 1.1 g/dL (3.4-5.0) Albumin/Globulin Ratio 0.3 (1.0-1.7) Medications Active Scripts Medications Dose Route/Sig Max Daily Dose Days Date Category Bisoprolol Fumarate 5 Mg Tablet 10 Mg PO DAILY 07/04/[address] reviewed 10/30/19, Decreased left-sided effusion after catheter placement. The right-sided effusion has increased as has atelectasis. There has been exchange or placement of multiple drainage tubes and a gastrojejunostomy tube. Both collections are smaller. No significant new abdominal fluid collection is seen. The jejunal component of the gastrojejunostomy tube appears to be looped in the proximal small bowel. ct abdomen /pelvis 09/23 1. Removal of the percutaneous pigtail drainage catheters since the prior exam. Sequela of pancreatitis with extensive pseudocysts again demonstrated, the right-sided collections are slightly larger since the prior exam, the left-sided collections are stable. See above. 2. Moderate to large left pleural effusion with atelectasis and collapse of most of the left lower lobe, stable. Small right pleural effusion is stable. 3. Gallstone. ct chest 10/02 reviewed GRAM NEG COCCOBACILLI:MANY SQUAMOUS EPI CELL:RARE PMN (WBCs):FEW Unless otherwise specified, Testing Performed by: [address] [address] For Inquires, the Physician may contact the Microbiology department at [phone] RESPIRATORY CULTURE Final Final MANY GRAM NEGATIVE RODS on 10/03/19 at 1100 FINAL ID= [PSEUDOMONAS AERUGINOSA] MICRO CHARGES PSEUDOMONAS AERUGINOSA ANTIMICROBIAL SUSCEPTIBILITY Final Comment NEG ALEXANDRA 56 PSEUDOMONAS AERUGINOSA ANTIBIOTIC RESULT INTERPRETATION AMIKACIN <=16 S AZTREONAM <=4 S CEFTAZIDIME <=1 S CIPROFLOXACIN <=0.25 S CEFEPIME <=2 S CEFTAZIDIME/AVIBACTAM <=4 S GENTAMICIN <=2 S LEVOFLOXACIN <=0.5 S Impression . IMPRESSION: 1. Acute hypoxemic respiratory failure secondary to ARDS status post trach, developed anemia 09/24, blood drainage from RLQ abdomen drain site, and surro unding firmness / developed septic shock 09/24 from abdomen source, required levo 09/24 s/p 3 new drains 09/24 with brown color drainage, S/P Exp. 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 parapsilosis & PSAE (I-merrem/ceftazidime/AZT/cefepime)) Leucocytosis -trending upward Fever Acute gallstone pancreatitis with persistent necrosis - 07/27. CT A/P Increased ascites. 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 status post KAYLIN drain placement; C. parapsilosis. s/p drain 08/23 + yeast & high amylase; s/p additional drain on 08/25. Drains removed. -08/23. fluid devyn parapsilosis fluid, amylase high - 09/23 showed multiple pseudocysts, slight larger on the right. s/p drains x 3, 09/24. + PSAE (MDRO-R Cefepime, Zosyn ALEXANDRA < 64) and yeast, -09/24 s/p drain replacement x 3; fluid cult PSAE (MDRO), yeast; treated -10/29 CT A/P shows smaller fluid collections. -722 CT abdomen and pelvis drains in place Ascites s/p paracentesis 08/02 & 08/23. C. parapsilosis Cholelithiasis with thickening of the gallbladder wall. JUANA, Hyperkalemia, Metabolic acidosis off dialysis Acute hypoxic resp failure. trach/vent. sputum 09/30 + PSAE (I merrem) ; sputum culture November 05+ for PSAE R Merrem, sensitive to cefepime Pleural effusion status post CTS left side Abdominal fluid culture MDRO Pseudomonas, yeast Sputum culture positive 11/05 for MDRO Pseudomonas Chest tube fluid positive for 11/07 Devyn Parapsilosis S/P Exploratory laparotomy, lysis of adhesions, subtotal cholecystectomy with cholangiogram, gastrojejunostomy tube placement, pancreatic necrosectomy leukocytosis- improving 11/09 fluid from the chest tube GRAM STAIN Final Final NO ORGANISMS SEEN. SQUAMOUS EPI CELL:NOT APPLICABLE PMN (WBCs):RARE Unless otherwise specified, Testing Performed by: [address] [place] [address] For Inquires, the Physician may contact the Microbiology department at [phone] ANAEROBIC-AEROBIC CULTURE Preliminary Preliminary No Growth on 11/09/19 at 0957 Unless otherwise specified, Testing Performed by: [address] [address] For Inquires, the Physician may contact the Microbiology department at [phone] Antibiotics per ID, since 11/09 Restart Avycaz DC cefepime cont micafungin and dapto Plan . no sig drainage on ct left side, no sig effusion will remove chest tube Transfuse as needed Antibiotics per ID changes made,Change Avycaz to cefepime cont micafungin and dapto Discussed with RN afebrile this morning Monitor H&H Trach shield, as tolerated, on room air Up to chair, pt/ot Follow culture Follow surgery input DVT GI prophylaxis f/u BC /resp cultures Continue TPN for nutrition support DVT/GI PPX VINAYAK LANDRUM MD Nov 11, 2019 11:39
--- NOTE | 2019-11-11 12:53 | PDOC ---
SURGICAL PROGRESS NOTE Subjective up in chair Vital Signs Vital Signs Date Time Temp Pulse Resp B/P (MAP) Pulse Ox O2 Delivery O2 Flow Rate FiO2 11/11/19 12:00 97.9 125 38 124/94 (104) 98 Room Air 97.9 11/11/19 11:26 2.0 I&O Intake and Output 11/11/19 07:00 Intake Total 2435 ml Output Total 2870 ml Balance -435 ml IV Total 2085 ml Tube Feeding 0 ml Other 350 ml Output Urine Total 1550 ml Chest Tube Drainage Total 200 ml Drainage Total 1120 ml PATIENT HAS A ROSARIO: Yes General: Cooperative, No acute distress Abdomen: Soft, Other (mulitple drains ) Labs Laboratory Tests Test 11/09/19 13:32 11/09/19 17:43 11/10/19 01:25 11/10/19 06:00 Glucose (Fingerstick) 144 mg/dL (70-99) 134 mg/dL (70-99) 132 mg/dL (70-99) Sodium Level 134 mmol/L (136-145) Potassium Level 4.4 mmol/L (3.5-5.1) Chloride Level 102 mmol/L (98-107) Carbon Dioxide Level 28 mmol/L (21-32) Anion Gap 4 (6-14) Blood Urea Nitrogen 14 mg/dL (7-20) Creatinine 0.5 mg/dL (0.6-1.0) Estimated GFR (Cockcroft-Gault) 131.1 Glucose Level 121 mg/dL (70-99) Calcium Level 9.7 mg/dL (8.5-10.1) Phosphorus Level 4.1 mg/dL (2.6-4.7) Magnesium Level 1.9 mg/dL (1.8-2.4) Triglycerides Level 181 mg/dL (0-150) Test 11/10/19 06:04 11/10/19 09:00 11/10/19 12:26 11/10/19 18:12 Glucose (Fingerstick) 117 mg/dL (70-99) 143 mg/dL (70-99) 126 mg/dL (70-99) White Blood Count 18.4 x10^3/uL (4.0-11.0) Red Blood Count 2.92 x10^6/uL (3.50-5.40) Hemoglobin 8.2 g/dL (12.0-15.5) Hematocrit 25.0 % (36.0-47.0) Mean Corpuscular Volume 86 fL (79-100) Mean Corpuscular Hemoglobin 28 pg (25-35) Mean Corpuscular Hemoglobin Concent 33 g/dL (31-37) Red Cell Distribution Width 15.6 % (11.5-14.5) Platelet Count 532 x10^3/uL (140-400) Neutrophils (%) (Auto) 85 % (31-73) Lymphocytes (%) (Auto) 6 % (24-48) Monocytes (%) (Auto) 5 % (0-9) Eosinophils (%) (Auto) 3 % (0-3) Basophils (%) (Auto) 1 % (0-3) Neutrophils # (Auto) 15.7 x10^3/uL (1.8-7.7) Lymphocytes # (Auto) 1.2 x10^3/uL (1.0-4.8) Monocytes # (Auto) 0.9 x10^3/uL (0.0-1.1) Eosinophils # (Auto) 0.6 x10^3/uL (0.0-0.7) Basophils # (Auto) 0.1 x10^3/uL (0.0-0.2) Test 11/11/19 00:02 11/11/19 06:00 11/11/19 06:21 11/11/19 07:30 Glucose (Fingerstick) 138 mg/dL (70-99) 150 mg/dL (70-99) White Blood Count 16.9 x10^3/uL (4.0-11.0) Red Blood Count 2.66 x10^6/uL (3.50-5.40) Hemoglobin 7.9 g/dL (12.0-15.5) Hematocrit 24.3 % (36.0-47.0) Mean Corpuscular Volume 91 fL (79-100) Mean Corpuscular Hemoglobin 30 pg (25-35) Mean Corpuscular Hemoglobin Concent 32 g/dL (31-37) Red Cell Distribution Width 16.7 % (11.5-14.5) Platelet Count 569 x10^3/uL (140-400) Neutrophils (%) (Auto) 83 % (31-73) Lymphocytes (%) (Auto) 9 % (24-48) Monocytes (%) (Auto) 6 % (0-9) Eosinophils (%) (Auto) 2 % (0-3) Basophils (%) (Auto) 1 % (0-3) Neutrophils # (Auto) 14.1 x10^3/uL (1.8-7.7) Lymphocytes # (Auto) 1.5 x10^3/uL (1.0-4.8) Monocytes # (Auto) 1.0 x10^3/uL (0.0-1.1) Eosinophils # (Auto) 0.3 x10^3/uL (0.0-0.7) Basophils # (Auto) 0.1 x10^3/uL (0.0-0.2) Sodium Level 136 mmol/L (136-145) Potassium Level 4.2 mmol/L (3.5-5.1) Chloride Level 103 mmol/L (98-107) Carbon Dioxide Level 26 mmol/L (21-32) Anion Gap 7 (6-14) Blood Urea Nitrogen 13 mg/dL (7-20) Creatinine 0.6 mg/dL (0.6-1.0) Estimated GFR (Cockcroft-Gault) 106.3 BUN/Creatinine Ratio 22 (6-20) Glucose Level 125 mg/dL (70-99) Calcium Level 9.4 mg/dL (8.5-10.1) Total Bilirubin 0.5 mg/dL (0.2-1.0) Aspartate Amino Transf (AST/SGOT) 16 U/L (15-37) Alanine Aminotransferase (ALT/SGPT) 15 U/L (14-59) Alkaline Phosphatase 129 U/L (46-116) Total Protein 5.1 g/dL (6.4-8.2) Albumin 1.1 g/dL (3.4-5.0) Albumin/Globulin Ratio 0.3 (1.0-1.7) Test 11/11/19 12:24 Glucose (Fingerstick) 156 mg/dL (70-99) Laboratory Tests Test 11/10/19 18:12 11/11/19 00:02 11/11/19 06:00 11/11/19 06:21 Glucose (Fingerstick) 126 mg/dL (70-99) 138 mg/dL (70-99) 150 mg/dL (70-99) White Blood Count 16.9 x10^3/uL (4.0-11.0) Red Blood Count 2.66 x10^6/uL (3.50-5.40) Hemoglobin 7.9 g/dL (12.0-15.5) Hematocrit 24.3 % (36.0-47.0) Mean Corpuscular Volume 91 fL (79-100) Mean Corpuscular Hemoglobin 30 pg (25-35) Mean Corpuscular Hemoglobin Concent 32 g/dL (31-37) Red Cell Distribution Width 16.7 % (11.5-14.5) Platelet Count 569 x10^3/uL (140-400) Neutrophils (%) (Auto) 83 % (31-73) Lymphocytes (%) (Auto) 9 % (24-48) Monocytes (%) (Auto) 6 % (0-9) Eosinophils (%) (Auto) 2 % (0-3) Basophils (%) (Auto) 1 % (0-3) Neutrophils # (Auto) 14.1 x10^3/uL (1.8-7.7) Lymphocytes # (Auto) 1.5 x10^3/uL (1.0-4.8) Monocytes # (Auto) 1.0 x10^3/uL (0.0-1.1) Eosinophils # (Auto) 0.3 x10^3/uL (0.0-0.7) Basophils # (Auto) 0.1 x10^3/uL (0.0-0.2) Test 11/11/19 07:30 11/11/19 12:24 Sodium Level 136 mmol/L (136-145) Potassium Level 4.2 mmol/L (3.5-5.1) Chloride Level 103 mmol/L (98-107) Carbon Dioxide Level 26 mmol/L (21-32) Anion Gap 7 (6-14) Blood Urea Nitrogen 13 mg/dL (7-20) Creatinine 0.6 mg/dL (0.6-1.0) Estimated GFR (Cockcroft-Gault) 106.3 BUN/Creatinine Ratio 22 (6-20) Glucose Level 125 mg/dL (70-99) Calcium Level 9.4 mg/dL (8.5-10.1) Total Bilirubin 0.5 mg/dL (0.2-1.0) Aspartate Amino Transf (AST/SGOT) 16 U/L (15-37) Alanine Aminotransferase (ALT/SGPT) 15 U/L (14-59) Alkaline Phosphatase 129 U/L (46-116) Total Protein 5.1 g/dL (6.4-8.2) Albumin 1.1 g/dL (3.4-5.0) Albumin/Globulin Ratio 0.3 (1.0-1.7) Glucose (Fingerstick) 156 mg/dL (70-99) Problem List Problems Medical Problems: (1) Acute pancreatitis Status: Acute (2) Cholelithiasis Status: Acute Assessment/Plan supportive care Justicifation of Admission Dx: Justifications for Admission: Justification of Admission Dx: Yes 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 APRN Nov 11, 2019 12:53
[2019-11-11] MEDS: IV NORMAL SALINE 1000ML BAG 1,000 ML IV SCH (14:33)
--- NOTE | 2019-11-11 15:39 | NUR ---
SS following up with discharge planning. SS reviewed pt chart and discussed with pt RN. Pt on room air. Pt had chest tube removed today. Pt has G tube, KAYLIN drains x2, and 1 Mook drain. Pt has wound vac on midline incision. Pt on TPN and IV Micafungin and Avycaz. Pt wore speaking valve today. SS will continue to follow for discharge planning.
[2019-11-11] MEDS ORDERED: TOTAL PARENTERAL NUTRITION IV SCH ×11 (22:00)
[2019-11-11] MEDS ORDERED: AMINO ACID IV SCH ×11 (22:00)
[2019-11-11] MEDS ORDERED: DEXTROSE 70% IV SCH ×11 (22:00)
[2019-11-11] MEDS ORDERED: [UNRECOGNIZED DRUG - OTHER] IV SCH ×11 (22:00)
[2019-11-12] MEDS: ALPRAZolam 0.5 MG TABLET PO PRN (00:57)
[2019-11-12 02:39] VITALS: BP 146/80
[2019-11-12] MEDS: METOPROLOL TARTRATE 5 MG/5 ML VIAL. IVP PRN ×2 (03:08→09:44)
[2019-11-12] MEDS: IPRATRPIUM/ALBUTEROL 0.5/2.5MG 3 ML NEBU. NEB SCH ×6 (03:45→20:16)
[2019-11-12] MEDS: fentaNYL PF VIAL 100 MCG/2 ML VIAL IV PRN ×2 (04:07→11:31)
[2019-11-12] MEDS: CEFTAZIDIME/AVIBACTAM 2.5 GM in IV NORMAL SALINE 250ML 250 ML IV SCH ×3 (05:35→21:40)
[2019-11-12] MEDS: INSULIN LISPRO 300 UNITS/3 ML VIAL. SQ SCH ×3 (05:49→18:00)
[2019-11-12 05:51] LABS: CREATININE 0.6 mg/dL (0.6-1.0); GFR 106.3; PHOSPHORUS 4.2 mg/dL (2.6-4.7); POTASSIUM 4.3 mmol/L (3.5-5.1)
[2019-11-12 07:00] VITALS: BP 136/72
[2019-11-12] MEDS: ENOXAPARIN 40 MG/0.4 ML SYRINGE. SQ SCH (07:56)
[2019-11-12] MEDS: PANTOPRAZOLE IV PUSH 40 MG VIAL. IVP SCH (07:56)
--- NOTE | 2019-11-12 07:56 | PDOC ---
Infectious Disease Note Subjective: Subjective Pt resting quietly On 2 L O2 by nasal cannula T max 100 TPN Vital Signs: Vital Signs Vital Signs Date Time Temp Pulse Resp B/P (MAP) Pulse Ox O2 Delivery O2 Flow Rate FiO2 11/12/19 04:40 32 98 Nasal Cannula 2.0 11/12/19 03:08 138 146/80 11/12/19 02:39 98.1 98.1 Physical Exam: PHYSICAL EXAM GENERAL: pt in bed, appears weak HEENT: Pupils equal, oral cavity dry. NGT out NECK: Tracheostomy LUNGS: Diminished aeration bases, CT on left HEART: S1, S2, tachy 110s ABDOMEN: Distended, bowel sounds hypoactive, soft, goyal x 2, KAYLIN drains, G-J tube : Lind in place EXTREMITIES: Trace generalized edema, no cyanosis. RADHA hose bilaterally, SKIN: warm touch. No signs of rash. LUE-PICC without signs of complications Medications: Inpatient Meds: Current Medications Medications (Trade) Dose Ordered Sig/Yvon Start Time Stop Time Status Last Admin Dose Admin Acetaminophen (Tylenol Supp) 650 mg PRN Q6HRS PRN 07/12/19 10:30 11/09/19 20:53 650 MG Acetaminophen (Tylenol) 650 mg PRN Q6HRS PRN 07/09/19 03:36 08/31/19 10:25 DC 08/04/19 19:56 650 MG Acetaminophen/ Hydrocodone Bitart (Lortab 5/325) 1 tab PRN Q4HRS PRN 11/10/19 16:00 11/11/19 19:34 1 TAB Acetylcysteine (Mucomyst 20% Resp Treatment) 600 mg RTBID 10/15/19 12:00 11/11/19 20:33 600 MG Albumin Human 500 ml @ 125 mls/hr PRN Q1HR PRN 10/18/19 15:45 Albuterol Sulfate (Ventolin Neb Soln) 2.5 mg 1X ONCE 07/05/19 22:30 07/05/19 22:31 DC 07/06/19 00:56 2.5 MG Albuterol/ Ipratropium (Duoneb) 3 ml Q4HRS 10/01/19 08:00 11/12/19 03:45 3 ML Alprazolam (Xanax) 0.5 mg PRN QID PRN 11/10/19 16:00 11/12/19 00:57 0.5 MG Alteplase, Recombinant (Cathflo For Central Catheter Clearance) 1 mg 1X ONCE 11/08/19 12:00 11/08/19 12:01 DC 11/08/19 12:17 1 MG Alteplase, Recombinant 4 mg/ Sodium Chloride 20 ml @ 20 mls/hr 1X ONCE 10/05/19 10:00 10/05/19 10:59 DC 10/05/19 10:09 20 MLS/HR Amino Acids/ Glycerin/ Electrolytes 1,000 ml @ 75 mls/hr [id number] 08/08/19 21:15 UNV Artificial Tears (Artificial Tears) 1 drop PRN Q15MIN PRN 08/17/19 05:30 10/11/19 21:17 1 DROP Atenolol (Tenormin) 100 mg DAILY 07/05/19 09:00 07/04/19 20:08 DC Atropine Sulfate (ATROPINE 0.5mg SYRINGE) 0.5 mg PRN Q5MIN PRN 07/21/19 08:15 Barium Sulfate (Varibar Thin Liquid Apple) 148 gm 1X ONCE 09/13/19 11:45 09/13/19 11:49 DC Benzocaine (Hurricaine One) 1 spray 1X ONCE 07/08/19 14:30 07/08/19 14:31 DC 07/08/19 16:38 1 SPRAY Bisacodyl (Dulcolax Supp) 10 mg STK-MED ONCE 08/15/19 10:59 08/15/19 10:59 DC Bumetanide (Bumex) 2 mg DAILY 08/26/19 10:00 09/05/19 17:15 DC 09/05/19 08:07 2 MG Bupivacaine HCl/ Epinephrine Bitart (Sensorcain-Epi 0.5%-1:[id number] Mpf) 30 ml STK-MED ONCE 10/18/19 08:34 10/18/19 08:35 DC Calcium Carbonate/ Glycine (Tums) 500 mg PRN AFTMEALHC PRN 07/06/19 17:45 08/31/19 10:25 DC Calcium Chloride 1000 mg/Sodium Chloride 110 ml @ 220 mls/hr 1X ONCE 07/05/19 22:30 07/05/19 22:59 DC 07/05/19 22:11 220 MLS/HR Calcium Chloride 3000 mg/Sodium Chloride 1,030 ml @ 50 mls/hr [id number] 07/07/19 08:00 07/09/19 15:23 DC 07/09/19 02:17 50 MLS/HR Calcium Gluconate (Calcium Gluconate) 2,000 mg 1X ONCE 07/07/19 02:15 07/07/19 02:16 DC 07/07/19 02:19 2,000 MG Calcium Gluconate 1000 mg/Sodium Chloride 110 ml @ 220 mls/hr 1X ONCE 07/06/19 03:30 07/06/19 03:59 DC 07/06/19 03:21 220 MLS/HR Calcium Gluconate 2000 mg/Sodium Chloride 120 ml @ 220 mls/hr 1X ONCE 07/06/19 07:30 07/06/19 08:02 DC 07/06/19 09:05 220 MLS/HR Cefepime HCl (Maxipime) 2 gm Q12HR 11/09/19 09:00 11/10/19 07:30 DC 11/09/19 20:53 2 GM Ceftazidime/ Avibactam 2.5 gm/ Sodium Chloride 250 ml @ 125 mls/hr Q8HRS 11/10/19 08:00 11/12/19 05:35 125 MLS/HR Cellulose (Surgicel Fibrillar 1x2) 1 each STK-MED ONCE 07/25/19 11:00 07/25/19 11:01 DC Cellulose (Surgicel Hemostat 2x14) 1 each STK-MED ONCE 08/15/19 10:58 08/15/19 10:59 DC Cellulose (Surgicel Hemostat 4x8) 1 each STK-MED ONCE 08/15/19 10:58 08/15/19 10:59 DC Chlorhexidine Gluconate (Peridex) 15 ml BID 10/01/19 09:00 10/01/19 07:58 DC Ciprofloxacin/ Dextrose 200 ml @ 200 mls/hr Q12HR 10/30/19 10:00 11/08/19 08:20 DC 11/07/19 21:02 200 MLS/HR Cyclobenzaprine HCl (Flexeril) 10 mg PRN Q6HRS PRN 08/18/19 10:45 10/28/19 19:12 10 MG Daptomycin 410 mg/ Sodium Chloride 50 ml @ 100 mls/hr Q24H 09/25/19 14:00 09/28/19 08:30 DC 09/27/19 13:33 100 MLS/HR Daptomycin 430 mg/ Sodium Chloride 50 ml @ 100 mls/hr Q24H 08/13/19 13:00 08/18/19 20:58 DC 08/18/19 13:00 100 MLS/HR Daptomycin 450 mg/ Sodium Chloride 50 ml @ 100 mls/hr Q24H 09/04/19 09:00 09/08/19 08:30 DC 09/07/19 09:25 100 MLS/HR Daptomycin 485 mg/ Sodium Chloride 50 ml @ 100 mls/hr Q24H 08/22/19 11:00 08/30/19 07:44 DC 08/29/19 13:10 100 MLS/HR Daptomycin 500 mg/ Sodium Chloride 50 ml @ 100 mls/hr Q24H 11/02/19 09:00 11/11/19 08:38 DC 11/11/19 08:25 100 MLS/HR Desflurane (Suprane) 90 ml STK-MED ONCE 10/18/19 10:18 10/18/19 10:19 DC Dexamethasone Sodium Phosphate (Decadron) 4 mg STK-MED ONCE 08/15/19 10:56 08/15/19 10:57 DC Dexmedetomidine HCl 400 mcg/ Sodium Chloride 100 ml @ 0 mls/hr CONT PRN 07/21/19 08:15 09/17/19 18:31 DC 09/17/19 12:57 8 MLS/HR Dextrose (Dextrose 50%-Water Syringe) 12.5 gm PRN Q15MIN PRN 07/04/19 09:30 Digoxin (Lanoxin) 125 mcg 1X ONCE 07/07/19 18:00 07/07/19 18:01 DC 07/07/19 17:10 125 MCG Diphenhydramine HCl (Benadryl) 25 mg 1X ONCE 11/03/19 19:00 11/03/19 19:01 DC 11/03/19 18:56 25 MG Duloxetine HCl (Cymbalta) 30 mg DAILY 08/28/19 14:00 08/31/19 10:25 DC 08/29/19 09:48 30 MG Enoxaparin Sodium (Lovenox 100mg Syringe) 100 mg Q12HR 08/09/19 21:00 UNV Enoxaparin Sodium (Lovenox 40mg Syringe) 40 mg Q24H 10/19/19 08:00 11/11/19 08:25 40 MG Ephedrine Sulfate (ePHEDrine PF IN SALINE SYRINGE) 50 mg STK-MED ONCE 10/18/19 14:45 10/18/19 14:45 DC Etomidate (Amidate) 8 mg 1X ONCE 07/11/19 08:30 07/11/19 08:31 DC 07/11/19 08:33 8 MG Fentanyl (Duragesic 12mcg/ Hr Patch) 1 patch Q3DAYS 10/28/19 09:00 11/09/19 09:00 1 PATCH Fentanyl (Duragesic 50mcg/ Hr Patch) 1 patch Q72H 09/22/19 21:00 10/01/19 12:00 DC 09/22/19 21:22 1 PATCH Fentanyl Citrate 30 ml @ 0 mls/hr CONT PRN 10/27/19 17:30 Fentanyl Citrate (Fentanyl 2ml Vial) 100 mcg STK-MED ONCE 10/18/19 07:44 10/18/19 07:44 DC Fentanyl Citrate (Fentanyl 5ml Vial) 250 mcg 1X ONCE 08/26/19 09:15 08/26/19 09:16 DC 08/26/19 09:30 50 MCG Flumazenil (Romazicon) 0.5 mg STK-MED ONCE 09/25/19 14:48 09/25/19 14:48 DC Fluoxetine HCl (PROzac) 20 mg QHS 09/22/19 21:00 11/11/19 21:24 20 MG Furosemide (Lasix) 40 mg 1X ONCE 10/12/19 15:30 10/12/19 15:33 DC 10/12/19 16:27 40 MG Haloperidol Lactate (Haldol Inj) 3 mg 1X ONCE 08/22/19 14:30 08/22/19 14:31 DC 08/22/19 14:37 3 MG Heparin Sodium (Porcine) (Hep Lock Adult) 500 unit STK-MED ONCE 07/26/19 09:29 07/26/19 09:30 DC Heparin Sodium (Porcine) (Heparin Sodium) 5,000 unit Q12HR 08/15/19 21:00 08/25/19 09:59 DC 08/24/19 20:57 5,000 UNIT Heparin Sodium (Porcine) 1000 unit/Sodium Chloride 1,001 ml @ 1,001 mls/hr 1X ONCE 10/18/19 06:00 10/18/19 06:59 DC Hydromorphone HCl (Dilaudid Standard [employer]) 12 mg STK-MED ONCE 08/19/19 15:50 08/30/19 11:24 DC Hydromorphone HCl (Dilaudid) 1 mg PRN Q4HRS PRN 08/22/19 19:00 09/05/19 17:10 DC 09/05/19 06:25 1 MG Info (CONTRAST GIVEN -- Rx MONITORING) 1 each PRN DAILY PRN 11/08/19 11:45 11/10/19 11:44 DC Info (Icu Electrolyte Protocol) 1 ea CONT PRN PRN 07/17/19 13:15 Info (PHARMACY MONITORING -- do not chart) 1 each PRN DAILY PRN 08/12/19 15:45 09/13/19 14:14 DC Info (Tpn Per Pharmacy) 1 each PRN DAILY PRN 07/06/19 12:30 UNV Insulin Human Lispro (HumaLOG) 0-9 UNITS Q6HRS 07/04/19 09:30 11/11/19 12:26 4 UNITS Insulin Human Regular (HumuLIN R VIAL) 5 unit 1X ONCE 07/05/19 22:30 07/05/19 22:31 DC 07/05/19 22:14 5 UNIT Iohexol (Omnipaque 240 Mg/ml) 30 ml 1X ONCE 07/18/19 11:30 07/18/19 11:33 DC 07/18/19 11:30 30 ML Iohexol (Omnipaque 300 Mg/ml) 75 ml 1X ONCE 11/08/19 11:30 11/08/19 11:31 DC 11/08/19 11:30 75 ML Iohexol (Omnipaque 350 Mg/ml) 90 ml 1X ONCE 07/04/19 03:30 07/04/19 03:31 DC 07/04/19 03:25 90 ML Ketorolac Tromethamine (Toradol 30mg Vial) 30 mg 1X ONCE 07/04/19 03:00 07/04/19 03:01 DC 07/04/19 02:54 30 MG Lidocaine HCl (Buffered Lidocaine 1%) 3 ml 1X ONCE 10/03/19 13:00 10/03/19 13:01 DC 10/03/19 13:11 12 ML Lidocaine HCl (Glydo (Lidocaine) Jelly) 1 ramu 1X ONCE 07/08/19 14:30 07/08/19 14:31 DC 07/08/19 16:38 1 RAMU Lidocaine HCl (Lidocaine 1% 20ml Vial) 20 ml 1X ONCE 09/25/19 15:00 09/25/19 15:01 DC 09/25/19 15:30 20 ML Lidocaine HCl (Lidocaine Pf 2% Vial) 5 ml STK-MED ONCE 10/18/19 07:44 10/18/19 07:44 DC Lidocaine HCl (Xylocaine-Mpf 1% 2ml Vial) 2 ml PRN 1X PRN 08/15/19 07:00 08/16/19 06:59 DC Linezolid/Dextrose 300 ml @ 300 mls/hr Q12HR 09/04/19 09:00 09/07/19 08:11 DC 09/06/19 21:08 300 MLS/HR Lorazepam (Ativan Inj) 0.25 mg PRN Q4HRS PRN 09/21/19 07:30 11/07/19 03:28 0.25 MG Magnesium Sulfate 50 ml @ 25 mls/hr 1X ONCE 10/18/19 16:30 10/18/19 18:29 DC 10/18/19 17:02 25 MLS/HR Meropenem 1 gm/ Sodium Chloride 100 ml @ 200 mls/hr Q12HR 09/25/19 21:00 10/13/19 08:56 DC 10/13/19 08:27 200 MLS/HR Meropenem 500 mg/ Sodium Chloride 50 ml @ 100 mls/hr Q6HRS 10/16/19 18:00 11/08/19 08:23 DC 11/08/19 06:15 100 MLS/HR Methylprednisolone Sodium Succinate (SOLU-Medrol 125MG VIAL) 125 mg 1X ONCE 10/01/19 06:15 10/01/19 06:16 DC 10/01/19 06:26 125 MG Metoclopramide HCl (Reglan Vial) 10 mg PRN Q3HRS PRN 08/27/19 16:45 09/01/19 04:25 10 MG Metoprolol Tartrate (Lopressor Vial) 5 mg PRN Q6HRS PRN 09/28/19 09:00 11/12/19 03:08 5 MG Metronidazole 100 ml @ 100 mls/hr Q8HRS 08/02/19 10:00 08/09/19 08:10 DC 08/09/19 06:04 100 MLS/HR Micafungin Sodium 100 mg/Dextrose 100 ml @ 100 mls/hr Q24H 10/18/19 08:30 11/11/19 08:24 100 MLS/HR Midazolam HCl (Versed) 2 mg 1X ONCE 09/25/19 15:00 09/25/19 15:01 DC 09/25/19 15:28 1 MG Midazolam HCl 100 mg/Sodium Chloride 100 ml @ 1 mls/hr CONT PRN 10/18/19 14:45 10/21/19 18:48 10 MLS/HR Midazolam HCl 50 mg/Sodium Chloride 50 ml @ 0 mls/hr CONT PRN 07/11/19 08:15 07/16/19 15:59 DC 07/14/19 22:39 7 MLS/HR Morphine Sulfate (Morphine Sulfate) 1 mg PRN Q1HR PRN 10/18/19 14:45 Multi-Ingred Cream/Lotion/Oil/ Oint (Artificial Tears Eye Ointment) 1 ramu PRN Q1HR PRN 07/13/19 17:30 09/21/19 14:39 DC 08/01/19 08:19 1 RAMU Naloxone HCl (Narcan) 0.4 mg PRN Q2MIN PRN 10/18/19 14:45 Norepinephrine Bitartrate 8 mg/ Dextrose 258 ml @ 13.332 mls/ hr CONT PRN 09/25/19 06:30 10/20/19 09:09 1.6 MLS/HR Ondansetron HCl (Zofran) 4 mg STK-MED ONCE 10/18/19 13:33 10/18/19 13:33 DC Pantoprazole Sodium (PROTONIX VIAL for IV PUSH) 40 mg DAILYAC 07/04/19 11:30 11/11/19 07:26 40 MG Phenylephrine HCl (Brayden-Synephrine Inj) 10 mg STK-MED ONCE 10/18/19 13:33 10/18/19 13:33 DC Phenylephrine HCl (PHENYLEPHRINE in 0.9% NACL PF) 1 mg STK-MED ONCE 10/18/19 14:44 10/18/19 14:45 DC Piperacillin Sod/ Tazobactam Sod 3.375 gm/Sodium Chloride 50 ml @ 100 mls/hr Q6HRS 09/14/19 12:00 09/22/19 07:26 DC 09/22/19 06:10 100 MLS/HR Piperacillin Sod/ Tazobactam Sod 4.5 gm/Sodium Chloride 100 ml @ 200 mls/hr 1X ONCE 07/04/19 06:00 07/04/19 06:29 DC 07/04/19 05:44 200 MLS/HR Potassium Chloride 110 meq/ Magnesium Sulfate 20 meq/ Multivitamins 10 ml/Chromium/ Copper/Manganese/ Seleni/Zn 1 ml/ Insulin Human Regular 15 unit/ Total Parenteral Nutrition/Amino Acids/Dextrose/ Fat Emulsion Intravenous 1,800 ml @ 75 mls/hr TPN CONT 09/11/19 22:00 09/12/19 21:59 DC 09/11/19 22:48 75 MLS/HR Potassium Chloride 15 meq/ Bicarbonate Dialysis Soln w/ out KCl 5,007.5 ml @ 1,000 mls/ hr Q5H1M 07/17/19 20:00 07/21/19 13:08 DC 07/20/19 18:14 1,000 MLS/HR Potassium Chloride 20 meq/ Bicarbonate Dialysis Soln w/ out KCl 5,010 ml @ 1,000 mls/hr Q5H1M 07/13/19 16:00 07/17/19 19:59 DC 07/17/19 14:54 1,000 MLS/HR Potassium Chloride 40 meq/ Potassium Acetate 60 meq/Magnesium Sulfate 10 meq/ Multivitamins 10 ml/Chromium/ Copper/Manganese/ Seleni/Zn 1 ml/ Insulin Human Regular 20 unit/ Total Parenteral Nutrition/Amino Acids/Dextrose/ Fat Emulsion Intravenous 1,800 ml @ 75 mls/hr TPN CONT 09/22/19 22:00 09/23/19 21:59 DC 09/23/19 00:03 75 MLS/HR Potassium Chloride 70 meq/ Magnesium Sulfate 20 meq/ Multivitamins 10 ml/Chromium/ Copper/Manganese/ Seleni/Zn 1 ml/ Insulin Human Regular 15 unit/ Total Parenteral Nutrition/Amino Acids/Dextrose/ Fat Emulsion Intravenous 1,800 ml @ 75 mls/hr TPN CONT 09/16/19 22:00 09/17/19 21:59 DC 09/16/19 23:13 75 MLS/HR Potassium Chloride 75 meq/ Magnesium Sulfate 15 meq/ Multivitamins 10 ml/Chromium/ Copper/Manganese/ Seleni/Zn 0.5 ml/ Insulin Human Regular 15 unit/ Total Parenteral Nutrition/Amino Acids/Dextrose/ Fat Emulsion Intravenous 1,920 ml @ 80 mls/hr TPN CONT 08/27/19 22:00 08/28/19 21:59 DC 08/27/19 22:41 80 MLS/HR Potassium Chloride 75 meq/ Magnesium Sulfate 15 meq/Calcium Gluconate 8 meq/ Multivitamins 10 ml/Chromium/ Copper/Manganese/ Seleni/Zn 0.5 ml/ Insulin Human Regular 15 unit/ Total Parenteral Nutrition/Amino Acids/Dextrose/ Fat Emulsion Intravenous 1,920 ml @ 80 mls/hr TPN CONT 08/25/19 22:00 08/26/19 21:59 DC 08/25/19 22:28 80 MLS/HR Potassium Chloride 75 meq/ Magnesium Sulfate 15 meq/Calcium Gluconate 8 meq/ Multivitamins 10 ml/Chromium/ Copper/Manganese/ Seleni/Zn 0.5 ml/ Insulin Human Regular 20 unit/ Total Parenteral Nutrition/Amino Acids/Dextrose/ Fat Emulsion Intravenous 1,920 ml @ 80 mls/hr TPN CONT 08/24/19 22:00 08/25/19 21:59 DC 08/24/19 22:00 80 MLS/HR Potassium Chloride 75 meq/ Magnesium Sulfate 15 meq/Calcium Gluconate 8 meq/ Multivitamins 10 ml/Chromium/ Copper/Manganese/ Seleni/Zn 0.5 ml/ Insulin Human Regular 25 unit/ Total Parenteral Nutrition/Amino Acids/Dextrose/ Fat Emulsion Intravenous 1,920 ml @ 80 mls/hr TPN CONT 08/22/19 22:00 08/23/19 21:59 DC 08/22/19 23:08 80 MLS/HR Potassium Chloride 75 meq/ Magnesium Sulfate 20 meq/Calcium Gluconate 10 meq/ Multivitamins 10 ml/Chromium/ Copper/Manganese/ Seleni/Zn 0.5 ml/ Insulin Human Regular 25 unit/ Total Parenteral Nutrition/Amino Acids/Dextrose/ Fat Emulsion Intravenous 1,920 ml @ 80 mls/hr TPN CONT 08/21/19 22:00 08/22/19 21:59 DC 08/21/19 22:04 80 MLS/HR Potassium Chloride 75 meq/ Magnesium Sulfate 20 meq/Calcium Gluconate 10 meq/ Multivitamins 10 ml/Chromium/ Copper/Manganese/ Seleni/Zn 0.5 ml/ Insulin Human Regular 30 unit/ Total Parenteral Nutrition/Amino Acids/Dextrose/ Fat Emulsion Intravenous 1,920 ml @ 80 mls/hr TPN CONT 08/20/19 22:00 08/21/19 22:00 DC 08/20/19 21:51 80 MLS/HR Potassium Chloride 80 meq/ Magnesium Sulfate 20 meq/ Multivitamins 10 ml/Chromium/ Copper/Manganese/ Seleni/Zn 0.5 ml/ Insulin Human Regular 15 unit/ Total Parenteral Nutrition/Amino Acids/Dextrose/ Fat Emulsion Intravenous 1,920 ml @ 80 mls/hr TPN CONT 08/30/19 22:00 08/31/19 21:59 DC 08/30/19 21:40 80 MLS/HR Potassium Chloride 80 meq/ Magnesium Sulfate 20 meq/ Multivitamins 10 ml/Chromium/ Copper/Manganese/ Seleni/Zn 1 ml/ Insulin Human Regular 15 unit/ Total Parenteral Nutrition/Amino Acids/Dextrose/ Fat Emulsion Intravenous 1,800 ml @ 75 mls/hr TPN CONT 09/18/19 22:00 09/19/19 21:59 DC 09/18/19 21:54 75 MLS/HR Potassium Chloride 90 meq/ Magnesium Sulfate 20 meq/ Multivitamins 10 ml/Chromium/ Copper/Manganese/ Seleni/Zn 1 ml/ Insulin Human Regular 15 unit/ Total Parenteral Nutrition/Amino Acids/Dextrose/ Fat Emulsion Intravenous 1,800 ml @ 75 mls/hr TPN CONT 09/07/19 22:00 09/08/19 21:59 DC 09/07/19 22:28 75 MLS/HR Potassium Chloride 90 meq/ Magnesium Sulfate 20 meq/ Multivitamins 10 ml/Chromium/ Copper/Manganese/ Seleni/Zn 1 ml/ Insulin Human Regular 20 unit/ Total Parenteral Nutrition/Amino Acids/Dextrose/ Fat Emulsion Intravenous 1,800 ml @ 75 mls/hr TPN CONT 09/21/19 22:00 09/22/19 21:59 DC 09/21/19 23:13 75 MLS/HR Potassium Chloride/Water 100 ml @ 100 mls/hr Q1H 10/05/19 08:00 10/05/19 09:59 DC 10/05/19 09:12 100 MLS/HR Potassium Phosphate 20 mmol/ Sodium Chloride 106.6667 ml @ 51.667 m... 1X ONCE 07/13/19 13:00 07/13/19 15:03 DC 07/13/19 12:51 51.667 MLS/HR Potassium Acetate 30 meq/Magnesium Sulfate 14 meq/ Multivitamins 10 ml/Chromium/ Copper/Manganese/ Seleni/Zn 1 ml/ Insulin Human Regular 15 unit/ Sodium Chloride 20 meq/Potassium Chloride 30 meq/ Total Parenteral Nutrition/Amino Acids/Dextrose/ Fat Emulsion Intravenous 1,920 ml @ 80 mls/hr TPN CONT 10/11/19 22:00 10/12/19 21:59 DC 10/11/19 21:46 80 MLS/HR Potassium Acetate 30 meq/Magnesium Sulfate 20 meq/ Calcium Gluconate 10 meq/ Multivitamins 10 ml/Chromium/ Copper/Manganese/ Seleni/Zn 0.5 ml/ Insulin Human Regular 30 unit/ Potassium Chloride 30 meq/ Total Parenteral Nutrition/Amino Acids/Dextrose/ Fat Emulsion Intravenous 1,920 ml @ 80 mls/hr TPN CONT 08/19/19 22:00 08/20/19 21:59 DC 08/19/19 22:34 80 MLS/HR Potassium Acetate 40 meq/Magnesium Sulfate 10 meq/ Multivitamins 10 ml/Chromium/ Copper/Manganese/ Seleni/Zn 1 ml/ Insulin Human Regular 20 unit/ Total Parenteral Nutrition/Amino Acids/Dextrose/ Fat Emulsion Intravenous 1,920 ml @ 80 mls/hr TPN CONT 10/04/19 22:00 10/05/19 21:59 DC 10/04/19 21:32 80 MLS/HR Potassium Acetate 40 meq/Magnesium Sulfate 5 meq/ Multivitamins 10 ml/Chromium/ Copper/Manganese/ Seleni/Zn 1 ml/ Insulin Human Regular 30 unit/ Total Parenteral Nutrition/Amino Acids/Dextrose/ Fat Emulsion Intravenous 1,920 ml @ 80 mls/hr TPN CONT 10/03/19 22:00 10/04/19 19:34 DC 10/03/19 21:54 80 MLS/HR Potassium Acetate 55 meq/Magnesium Sulfate 20 meq/ Calcium Gluconate 10 meq/ Multivitamins 10 ml/Chromium/ Copper/Manganese/ Seleni/Zn 0.5 ml/ Insulin Human Regular 30 unit/ Total Parenteral Nutrition/Amino Acids/Dextrose/ Fat Emulsion Intravenous 1,920 ml @ 80 mls/hr TPN CONT 08/18/19 22:00 08/19/19 21:59 DC 08/19/19 01:00 80 MLS/HR Potassium Acetate 55 meq/Magnesium Sulfate 20 meq/ Calcium Gluconate 10 meq/ Multivitamins 10 ml/Chromium/ Copper/Manganese/ Seleni/Zn 0.5 ml/ Insulin Human Regular 35 unit/ Total Parenteral Nutrition/Amino Acids/Dextrose/ Fat Emulsion Intravenous 1,920 ml @ 80 mls/hr TPN CONT 08/16/19 22:00 08/17/19 21:59 DC 08/16/19 22:02 80 MLS/HR Potassium Acetate 60 meq/Magnesium Sulfate 10 meq/ Multivitamins 10 ml/Chromium/ Copper/Manganese/ Seleni/Zn 1 ml/ Insulin Human Regular 20 unit/ Total Parenteral Nutrition/Amino Acids/Dextrose/ Fat Emulsion Intravenous 1,920 ml @ 80 mls/hr TPN CONT 10/05/19 22:00 10/06/19 21:59 DC 10/05/19 21:55 80 MLS/HR Potassium Acetate 60 meq/Magnesium Sulfate 14 meq/ Multivitamins 10 ml/Chromium/ Copper/Manganese/ Seleni/Zn 1 ml/ Insulin Human Regular 15 unit/ Sodium Chloride 20 meq/Total Parenteral Nutrition/Amino Acids/Dextrose/ Fat Emulsion Intravenous 1,920 ml @ 80 mls/hr TPN CONT 10/10/19 22:00 10/11/19 21:59 DC 10/10/19 21:54 80 MLS/HR Potassium Acetate 60 meq/Magnesium Sulfate 14 meq/ Multivitamins 10 ml/Chromium/ Copper/Manganese/ Seleni/Zn 1 ml/ Insulin Human Regular 15 unit/ Total Parenteral Nutrition/Amino Acids/Dextrose/ Fat Emulsion Intravenous 1,920 ml @ 80 mls/hr TPN CONT 10/09/19 22:00 10/10/19 21:59 DC 10/09/19 22:22 80 MLS/HR Potassium Acetate 60 meq/Magnesium Sulfate 14 meq/ Multivitamins 10 ml/Chromium/ Copper/Manganese/ Seleni/Zn 1 ml/ Insulin Human Regular 20 unit/ Total Parenteral Nutrition/Amino Acids/Dextrose/ Fat Emulsion Intravenous 1,920 ml @ 80 mls/hr TPN CONT 10/06/19 22:00 10/07/19 21:59 DC 10/06/19 22:26 80 MLS/HR Potassium Acetate 60 meq/Magnesium Sulfate 5 meq/ Multivitamins 10 ml/Chromium/ Copper/Manganese/ Seleni/Zn 1 ml/ Insulin Human Regular 30 unit/ Total Parenteral Nutrition/Amino Acids/Dextrose/ Fat Emulsion Intravenous 1,920 ml @ 80 mls/hr TPN CONT 09/24/19 22:00 09/25/19 21:59 DC 09/24/19 21:54 80 MLS/HR Potassium Acetate 65 meq/Magnesium Sulfate 20 meq/ Calcium Gluconate 10 meq/ Multivitamins 10 ml/Chromium/ Copper/Manganese/ Seleni/Zn 0.5 ml/ Insulin Human Regular 30 unit/ Total Parenteral Nutrition/Amino Acids/Dextrose/ Fat Emulsion Intravenous 1,920 ml @ 80 mls/hr TPN CONT 08/17/19 22:00 08/18/19 21:59 DC 08/17/19 22:22 80 MLS/HR Potassium Acetate 80 meq/Magnesium Sulfate 5 meq/ Multivitamins 10 ml/Chromium/ Copper/Manganese/ Seleni/Zn 1 ml/ Insulin Human Regular 20 unit/ Total Parenteral Nutrition/Amino Acids/Dextrose/ Fat Emulsion Intravenous 1,920 ml @ 80 mls/hr TPN CONT 09/23/19 22:00 09/24/19 21:59 DC 09/23/19 21:59 80 MLS/HR Prochlorperazine Edisylate (Compazine) 5 mg PACU PRN PRN 08/15/19 07:00 08/16/19 06:59 DC Propofol (Diprivan) 200 mg STK-MED ONCE 10/18/19 07:44 10/18/19 07:44 DC Ringer's Solution 1,000 ml @ 30 mls/hr Q24H 08/15/19 07:00 08/15/19 18:59 DC Rocuronium [place] (Zemuron) 100 mg STK-MED ONCE 10/18/19 07:44 10/18/19 07:44 DC Saliva Substitute (Biotene Moisturizing Mouth) 2 spray PRN Q15MIN PRN 09/08/19 11:00 Sevoflurane (Ultane) 60 ml STK-MED ONCE 08/15/19 12:26 08/15/19 12:27 DC Sodium Bicarbonate 150 meq/Dextrose 1,150 ml @ 75 mls/hr 1X ONCE 10/18/19 16:30 10/19/19 07:49 DC 10/18/19 20:02 75 MLS/HR Sodium Bicarbonate 50 meq/Sodium Chloride 1,050 ml @ 75 mls/hr Q14H 07/06/19 07:30 07/11/19 10:28 DC 07/10/19 21:10 75 MLS/HR Sodium Acetate 50 meq/Potassium Acetate 55 meq/ Magnesium Sulfate 20 meq/Calcium Gluconate 10 meq/ Multivitamins 10 ml/Chromium/ Copper/Manganese/ Seleni/Zn 0.5 ml/ Insulin Human Regular 35 unit/ Total Parenteral Nutrition/Amino Acids/Dextrose/ Fat Emulsion Intravenous 1,800 ml @ 75 mls/hr TPN CONT 08/13/19 22:00 08/14/19 21:59 DC 08/13/19 22:03 75 MLS/HR Sodium Bicarbonate (Sodium Bicarb Adult 8.4% Syr) 100 meq 1X ONCE 10/18/19 16:30 10/18/19 16:31 DC 10/18/19 17:07 100 MEQ Sodium Chloride (Normal Saline Flush) 3 ml QSHIFT PRN 10/18/19 14:45 Sodium Chloride 80 meq/Potassium Chloride 30 meq/ Potassium Acetate 30 meq/Magnesium Sulfate 14 meq/ Multivitamins 10 ml/Chromium/ Copper/Manganese/ Seleni/Zn 1 ml/ Insulin Human Regular 15 unit/ Total Parenteral Nutrition/Amino Acids/Dextrose/ Fat Emulsion Intravenous 1,920 ml @ 80 mls/hr TPN CONT 10/19/19 22:00 10/20/19 21:59 DC 10/19/19 23:05 80 MLS/HR Sodium Chloride 90 meq/Calcium Gluconate 10 meq/ Multivitamins 10 ml/Chromium/ Copper/Manganese/ Seleni/Zn 0.5 ml/ Total Parenteral Nutrition/Amino Acids/Dextrose/ Fat Emulsion Intravenous 1,512 ml @ 63 mls/hr TPN CONT 07/06/19 22:00 07/07/19 21:59 DC 07/06/19 22:06 63 MLS/HR Sodium Chloride 90 meq/Calcium Gluconate 10 meq/ Multivitamins 10 ml/Chromium/ Copper/Manganese/ Seleni/Zn 1 ml/ Total Parenteral Nutrition/Amino Acids/Dextrose/ Fat Emulsion Intravenous 55.005 ml @ 2.292 mls/hr TPN CONT 07/06/19 22:00 07/06/19 12:33 DC Sodium Chloride 90 meq/Magnesium Sulfate 10 meq/ Calcium Gluconate 20 meq/ Multivitamins 10 ml/Chromium/ Copper/Manganese/ Seleni/Zn 0.5 ml/ Total Parenteral Nutrition/Amino Acids/Dextrose/ Fat Emulsion Intravenous 1,512 ml @ 63 mls/hr TPN CONT 07/07/19 22:00 07/08/19 21:59 DC 07/07/19 22:25 63 MLS/HR Sodium Chloride 90 meq/Magnesium Sulfate 12 meq/ Calcium Gluconate 15 meq/ Multivitamins 10 ml/Chromium/ Copper/Manganese/ Seleni/Zn 0.5 ml/ Insulin Human Regular 25 unit/ Total Parenteral Nutrition/Amino Acids/Dextrose/ Fat Emulsion Intravenous 1,400 ml @ 58.333 mls/ hr TPN CONT 07/27/19 22:00 07/28/19 21:59 DC 07/27/19 21:41 58.333 MLS/HR Sodium Chloride 90 meq/Potassium Chloride 15 meq/ Magnesium Sulfate 12 meq/Calcium Gluconate 15 meq/ Multivitamins 10 ml/Chromium/ Copper/Manganese/ Seleni/Zn 0.5 ml/ Insulin Human Regular 25 unit/ Total Parenteral Nutrition/Amino Acids/Dextrose/ Fat Emulsion Intravenous 1,400 ml @ 58.333 mls/ hr TPN CONT 07/26/19 22:00 07/27/19 21:59 DC 07/26/19 22:13 58.333 MLS/HR Sodium Chloride 90 meq/Potassium Chloride 15 meq/ Potassium Phosphate 10 mmol/ Magnesium Sulfate 8 meq/Calcium Gluconate 15 meq/ Multivitamins 10 ml/Chromium/ Copper/Manganese/ Seleni/Zn 0.5 ml/ Insulin Human Regular 25 unit/ Total Parenteral Nutrition/Amino Acids/Dextrose/ Fat Emulsion Intravenous 1,400 ml @ 58.333 mls/ hr TPN CONT 07/24/19 22:00 07/25/19 21:59 DC 07/24/19 21:20 58.333 MLS/HR Sodium Chloride 90 meq/Potassium Chloride 15 meq/ Potassium Phosphate 10 mmol/ Magnesium Sulfate 10 meq/Calcium Gluconate 20 meq/ Multivitamins 10 ml/Chromium/ Copper/Manganese/ Seleni/Zn 0.5 ml/ Total Parenteral Nutrition/Amino Acids/Dextrose/ Fat Emulsion Intravenous 1,400 ml @ 58.333 mls/ hr TPN CONT 07/11/19 22:00 07/12/19 21:59 DC 07/11/19 21:42 58.333 MLS/HR Sodium Chloride 90 meq/Potassium Chloride 15 meq/ Potassium Phosphate 10 mmol/ Magnesium Sulfate 12 meq/Calcium Gluconate 15 meq/ Multivitamins 10 ml/Chromium/ Copper/Manganese/ Seleni/Zn 0.5 ml/ Insulin Human Regular 25 unit/ Total Parenteral Nutrition/Amino Acids/Dextrose/ Fat Emulsion Intravenous 1,400 ml @ 58.333 mls/ hr TPN CONT 07/25/19 22:00 07/26/19 21:59 DC 07/25/19 22:24 58.333 MLS/HR Sodium Chloride 90 meq/Potassium Chloride 15 meq/ Potassium Phosphate 15 mmol/ Magnesium Sulfate 10 meq/Calcium Gluconate 15 meq/ Multivitamins 10 ml/Chromium/ Copper/Manganese/ Seleni/Zn 0.5 ml/ Total Parenteral Nutrition/Amino Acids/Dextrose/ Fat Emulsion Intravenous 1,400 ml @ 58.333 mls/ hr TPN CONT 07/12/19 22:00 07/13/19 21:59 DC 07/12/19 22:17 58.333 MLS/HR Sodium Chloride 90 meq/Potassium Chloride 15 meq/ Potassium Phosphate 15 mmol/ Magnesium Sulfate 10 meq/Calcium Gluconate 20 meq/ Multivitamins 10 ml/Chromium/ Copper/Manganese/ Seleni/Zn 0.5 ml/ Total Parenteral Nutrition/Amino Acids/Dextrose/ Fat Emulsion Intravenous 1,200 ml @ 50 mls/hr TPN CONT 07/10/19 22:00 07/10/19 14:17 DC Sodium Chloride 90 meq/Potassium Chloride 15 meq/ Potassium Phosphate 18 mmol/ Magnesium Sulfate 8 meq/Calcium Gluconate 15 meq/ Multivitamins 10 ml/Chromium/ Copper/Manganese/ Seleni/Zn 0.5 ml/ Insulin Human Regular 10 unit/ Total Parenteral Nutrition/Amino Acids/Dextrose/ Fat Emulsion Intravenous 1,400 ml @ 58.333 mls/ hr TPN CONT 07/15/19 22:00 07/16/19 21:59 DC 07/15/19 21:43 58.333 MLS/HR Sodium Chloride 90 meq/Potassium Chloride 15 meq/ Potassium Phosphate 18 mmol/ Magnesium Sulfate 8 meq/Calcium Gluconate 15 meq/ Multivitamins 10 ml/Chromium/ Copper/Manganese/ Seleni/Zn 0.5 ml/ Insulin Human Regular 15 unit/ Total Parenteral Nutrition/Amino Acids/Dextrose/ Fat Emulsion Intravenous 1,400 ml @ 58.333 mls/ hr TPN CONT 07/18/19 22:00 07/19/19 21:59 DC 07/18/19 21:47 58.333 MLS/HR Sodium Chloride 90 meq/Potassium Chloride 15 meq/ Potassium Phosphate 18 mmol/ Magnesium Sulfate 8 meq/Calcium Gluconate 15 meq/ Multivitamins 10 ml/Chromium/ Copper/Manganese/ Seleni/Zn 0.5 ml/ Insulin Human Regular 20 unit/ Total Parenteral Nutrition/Amino Acids/Dextrose/ Fat Emulsion Intravenous 1,400 ml @ 58.333 mls/ hr TPN CONT 07/21/19 22:00 07/22/19 21:59 DC 07/21/19 22:45 58.333 MLS/HR Sodium Chloride 90 meq/Potassium Chloride 15 meq/ Potassium Phosphate 18 mmol/ Magnesium Sulfate 8 meq/Calcium Gluconate 15 meq/ Multivitamins 10 ml/Chromium/ Copper/Manganese/ Seleni/Zn 0.5 ml/ Total Parenteral Nutrition/Amino Acids/Dextrose/ Fat Emulsion Intravenous 1,400 ml @ 58.333 mls/ hr TPN CONT 07/14/19 22:00 07/15/19 21:59 DC 07/14/19 22:00 58.333 MLS/HR Sodium Chloride 90 meq/Potassium Chloride 30 meq/ Potassium Acetate 30 meq/Magnesium Sulfate 15 meq/ Multivitamins 10 ml/Chromium/ Copper/Manganese/ Seleni/Zn 1 ml/ Insulin Human Regular 15 unit/ Total Parenteral Nutrition/Amino Acids/Dextrose/ Fat Emulsion Intravenous 1,680 ml @ 70 mls/hr TPN CONT 11/03/19 22:00 11/04/19 21:59 DC 11/03/19 22:06 70 MLS/HR Sodium Chloride 90 meq/Potassium Phosphate 15 mmol/ Magnesium Sulfate 12 meq/Calcium Gluconate 15 meq/ Multivitamins 10 ml/Chromium/ Copper/Manganese/ Seleni/Zn 0.5 ml/ Insulin Human Regular 30 unit/ Total Parenteral Nutrition/Amino Acids/Dextrose/ Fat Emulsion Intravenous 1,400 ml @ 58.333 mls/ hr TPN CONT 07/29/19 22:00 07/30/19 21:59 DC 07/29/19 21:49 58.333 MLS/HR Sodium Chloride 90 meq/Potassium Phosphate 15 mmol/ Magnesium Sulfate 12 meq/Calcium Gluconate 15 meq/ Multivitamins 10 ml/Chromium/ Copper/Manganese/ Seleni/Zn 0.5 ml/ Insulin Human Regular 40 unit/ Total Parenteral Nutrition/Amino Acids/Dextrose/ Fat Emulsion Intravenous 1,400 ml @ 58.333 mls/ hr TPN CONT 07/30/19 22:00 07/31/19 21:59 DC 07/30/19 21:21 58.333 MLS/HR Sodium Chloride 90 meq/Potassium Phosphate 19 mmol/ Magnesium Sulfate 12 meq/Calcium Gluconate 15 meq/ Multivitamins 10 ml/Chromium/ Copper/Manganese/ Seleni/Zn 0.5 ml/ Insulin Human Regular 40 unit/ Total Parenteral Nutrition/Amino Acids/Dextrose/ Fat Emulsion Intravenous 1,400 ml @ 58.333 mls/ hr TPN CONT 07/31/19 22:00 08/01/19 21:59 DC 07/31/19 21:54 58.333 MLS/HR Sodium Chloride 90 meq/Potassium Phosphate 5 mmol/ Magnesium Sulfate 12 meq/Calcium Gluconate 15 meq/ Multivitamins 10 ml/Chromium/ Copper/Manganese/ Seleni/Zn 0.5 ml/ Insulin Human Regular 30 unit/ Total Parenteral Nutrition/Amino Acids/Dextrose/ Fat Emulsion Intravenous 1,400 ml @ 58.333 mls/ hr TPN CONT 07/28/19 22:00 07/29/19 21:59 DC 07/28/19 22:08 58.333 MLS/HR Sodium Chloride 100 meq/Potassium Chloride 30 meq/ Potassium Acetate 30 meq/Magnesium Sulfate 12 meq/ Multivitamins 10 ml/Chromium/ Copper/Manganese/ Seleni/Zn 1 ml/ Insulin Human Regular 15 unit/ Total Parenteral Nutrition/Amino Acids/Dextrose/ Fat Emulsion Intravenous 1,680 ml @ 70 mls/hr TPN CONT 10/23/19 22:00 10/24/19 21:59 DC 10/23/19 21:23 70 MLS/HR Sodium Chloride 100 meq/Potassium Chloride 40 meq/ Magnesium Sulfate 15 meq/Calcium Gluconate 15 meq/ Multivitamins 10 ml/Chromium/ Copper/Manganese/ Seleni/Zn 0.5 ml/ Insulin Human Regular 35 unit/ Total Parenteral Nutrition/Amino Acids/Dextrose/ Fat Emulsion Intravenous 1,400 ml @ 58.333 mls/ hr TPN CONT 08/07/19 22:00 08/08/19 21:59 DC 08/07/19 22:46 58.333 MLS/HR Sodium Chloride 100 meq/Potassium Chloride 40 meq/ Magnesium Sulfate 20 meq/Calcium Gluconate 10 meq/ Multivitamins 10 ml/Chromium/ Copper/Manganese/ Seleni/Zn 0.5 ml/ Insulin Human Regular 35 unit/ Total Parenteral Nutrition/Amino Acids/Dextrose/ Fat Emulsion Intravenous 1,400 ml @ 58.333 mls/ hr TPN CONT 08/11/19 22:00 08/12/19 21:59 DC 08/12/19 00:06 58.333 MLS/HR Sodium Chloride 100 meq/Potassium Chloride 40 meq/ Magnesium Sulfate 20 meq/Calcium Gluconate 15 meq/ Multivitamins 10 ml/Chromium/ Copper/Manganese/ Seleni/Zn 0.5 ml/ Insulin Human Regular 35 unit/ Total Parenteral Nutrition/Amino Acids/Dextrose/ Fat Emulsion Intravenous 1,400 ml @ 58.333 mls/ hr TPN CONT 08/10/19 22:00 08/11/19 21:59 DC 08/10/19 22:27 58.333 MLS/HR Sodium Chloride 100 meq/Potassium Phosphate 10 mmol/ Magnesium Sulfate 12 meq/Calcium Gluconate 15 meq/ Multivitamins 10 ml/Chromium/ Copper/Manganese/ Seleni/Zn 0.5 ml/ Insulin Human Regular 35 unit/ Potassium Chloride 20 meq/ Total Parenteral Nutrition/Amino Acids/Dextrose/ Fat Emulsion Intravenous 1,400 ml @ 58.333 mls/ hr TPN CONT 08/04/19 22:00 08/05/19 21:59 DC 08/04/19 22:10 58.333 MLS/HR Sodium Chloride 100 meq/Potassium Phosphate 19 mmol/ Magnesium Sulfate 12 meq/Calcium Gluconate 15 meq/ Multivitamins 10 ml/Chromium/ Copper/Manganese/ Seleni/Zn 0.5 ml/ Insulin Human Regular 40 unit/ Potassium Chloride 20 meq/ Total Parenteral Nutrition/Amino Acids/Dextrose/ Fat Emulsion Intravenous 1,400 ml @ 58.333 mls/ hr TPN CONT 08/03/19 22:00 08/04/19 21:59 DC 08/03/19 21:20 58.333 MLS/HR Sodium Chloride 100 meq/Potassium Phosphate 5 mmol/ Magnesium Sulfate 12 meq/Calcium Gluconate 15 meq/ Multivitamins 10 ml/Chromium/ Copper/Manganese/ Seleni/Zn 0.5 ml/ Insulin Human Regular 35 unit/ Potassium Chloride 20 meq/ Total Parenteral Nutrition/Amino Acids/Dextrose/ Fat Emulsion Intravenous 1,400 ml @ 58.333 mls/ hr TPN CONT 08/05/19 22:00 08/06/19 21:59 DC 08/05/19 22:59 58.333 MLS/HR Sodium Chloride 110 meq/Potassium Chloride 30 meq/ Potassium Acetate 30 meq/Magnesium Sulfate 15 meq/ Multivitamins 10 ml/Chromium/ Copper/Manganese/ Seleni/Zn 1 ml/ Insulin Human Regular 15 unit/ Total Parenteral Nutrition/Amino Acids/Dextrose/ Fat Emulsion Intravenous 1,680 ml @ 70 mls/hr TPN CONT 11/05/19 22:00 11/06/19 21:59 DC 11/05/19 22:01 70 MLS/HR Sodium Chloride 110 meq/Sodium Phosphate 10 mmol/ Potassium Chloride 30 meq/ Potassium Acetate 30 meq/Magnesium Sulfate 15 meq/ Multivitamins 10 ml/Chromium/ Copper/Manganese/ Seleni/Zn 1 ml/ Insulin Human Regular 15 unit/ Total Parenteral Nutrition/Amino Acids/Dextrose/ Fat Emulsion Intravenous 1,680 ml @ 70 mls/hr TPN CONT 11/06/19 22:00 11/07/19 21:59 DC 11/06/19 22:03 70 MLS/HR Sodium Chloride 120 meq/Sodium Phosphate 10 mmol/ Potassium Chloride 30 meq/ Potassium Acetate 30 meq/Magnesium Sulfate 15 meq/ Multivitamins 10 ml/Chromium/ Copper/Manganese/ Seleni/Zn 1 ml/ Insulin Human Regular 15 unit/ Total Parenteral Nutrition/Amino Acids/Dextrose/ Fat Emulsion Intravenous 1,680 ml @ 70 mls/hr TPN CONT 11/11/19 22:00 11/12/19 21:59 11/11/19 21:50 70 MLS/HR Succinylcholine Chloride (Anectine) 120 mg 1X ONCE 07/11/19 08:30 07/11/19 08:31 DC 07/11/19 08:34 120 MG Vancomycin HCl (Vanco Per Pharmacy) 1 each PRN DAILY PRN 10/30/19 09:15 11/02/19 07:41 DC 11/01/19 02:46 1 EACH Vancomycin HCl (Vancomycin Random Level) 1 each 1X ONCE 11/01/19 01:00 11/01/19 01:01 DC 11/01/19 01:00 1 EACH Vancomycin HCl (Vancomycin Trough Level) 1 each 1X ONCE 11/02/19 09:30 11/02/19 09:31 Cancel Vancomycin HCl 1.5 gm/Sodium Chloride 500 ml @ 250 mls/hr Q12H 11/01/19 10:00 11/02/19 07:41 DC 11/01/19 22:07 250 MLS/HR Vancomycin HCl 2 gm/Sodium Chloride 500 ml @ 250 mls/hr 1X ONCE 10/30/19 10:00 10/30/19 11:59 DC 10/30/19 10:34 250 MLS/HR Vasopressin (Vasostrict) 20 unit STK-MED ONCE 10/18/19 12:23 10/18/19 12:23 DC Vasopressin 20 unit/Dextrose 101 ml @ 12 mls/hr CONT PRN 10/18/19 15:30 10/25/19 04:17 12 MLS/HR Vecuronium [place] (Norcuron Bolus) 6 mg PRN Q6HRS PRN 08/25/19 19:15 08/25/19 19:35 DC Labs: Lab Laboratory Tests Test 11/11/19 12:24 11/11/19 17:23 11/11/19 23:05 11/12/19 04:45 Glucose (Fingerstick) 156 mg/dL (70-99) 123 mg/dL (70-99) 138 mg/dL (70-99) Sodium Level 137 mmol/L (136-145) Potassium Level 4.3 mmol/L (3.5-5.1) Chloride Level 103 mmol/L (98-107) Carbon Dioxide Level 27 mmol/L (21-32) Anion Gap 7 (6-14) Blood Urea Nitrogen 15 mg/dL (7-20) Creatinine 0.6 mg/dL (0.6-1.0) Estimated GFR (Cockcroft-Gault) 106.3 Glucose Level 140 mg/dL (70-99) Calcium Level 10.0 mg/dL (8.5-10.1) Phosphorus Level 4.2 mg/dL (2.6-4.7) Test 11/12/19 05:48 Glucose (Fingerstick) 138 mg/dL (70-99) Micro NEG ALEXANDRA 56 PSEUDOMONAS AERUGINOSA ANTIBIOTIC RESULT INTERPRETATION AMIKACIN <=16 S AZTREONAM >16 R CEFTAZIDIME >16 R CIPROFLOXACIN <=0.25 S CEFEPIME 16 I GENTAMICIN <=2 S LEVOFLOXACIN <=0.5 S CONTINUED ON NEXT PAGE RUN DATE: 09/28/19 [facility] *LIVE* PAGE 2 RUN TIME: 1121 Specimen Inquiry SPEC: [id number] PATIENT: POLOSCOTT [id number] (Continued) -------- ---- Procedure Result ANTIMICROBIAL SUSCEPTIBILITY Preliminary (continued) MEROPENEM <=1 S PIPERACILLIN/TAZOBACTAM 64 S TOBRAMYCIN <=2 S Unless otherwise specified, Testing Performed by: [facility] [address] [place] [address] For Inquires, the Physician may contact the Microbiology department at [phone] Objective: Assessment: Patient with prolonged hospitalization more than 4 months Multiple medical problems Multiple surgical procedures S/P Exp. 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 parapsilosis & PSAE (I-merrem/ceftazidime/AZT/cefepime)) Leucocytosis -trending upward Fever Acute gallstone pancreatitis with persistent necrosis - 07/27. CT A/P Increased ascites. 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 status post KAYLIN drain placement; C. parapsilosis. s/p drain 08/23 + yeast & high amylase; s/p additional drain on 08/25. Drains removed. -08/23. fluid devyn parapsilosis fluid, amylase high - 09/23 showed multiple pseudocysts, slight larger on the right. s/p drains x 3, 09/24. + PSAE (MDRO-R Cefepime, Zosyn ALEXANDRA < 64) and yeast, -09/24 s/p drain replacement x 3; fluid cult PSAE (MDRO), yeast; treated -10/29 CT A/P shows smaller fluid collections. -722 CT abdomen and pelvis drains in place Ascites s/p paracentesis 08/02 & 08/23. C. parapsilosis Cholelithiasis with thickening of the gallbladder wall. JUANA, Hyperkalemia, Metabolic acidosis off dialysis Acute hypoxic resp failure. trach/vent. sputum 09/30 + PSAE (I merrem) ; sputum culture November 05+ for PSAE R Merrem, sensitive to cefepime Pleural effusion status post CTS left side Abdominal fluid culture MDRO Pseudomonas, yeast Sputum culture positive 11/05 for MDRO Pseudomonas Chest tube fluid positive for 11/07 Devyn Parapsilosis Generalized debility Plan: Plan of Care Continue Avycaz /micafungin off dapto 11/10 Follow-up C. difficile PCR BC from neg to date Monitor WBC/temp Follow cultures Wound care /drain management as directed Contact isolation for CRE/MDRO Critically ill prison prognosis poor D/w nursing YUNIOR JONES MD Nov 12, 2019 07:56
[2019-11-12] MEDS: MICAFUNGIN 100 MG in IV DEXTROSE 5% 100ML 100 ML IV SCH (07:58)
[2019-11-12] MEDS: ACETYLCYSTEINE 20% for RESP TX 600 MG/3 ML. NEB SCH ×2 (08:51→20:16)
--- NOTE | 2019-11-12 09:02 | PDOC ---
SURGICAL PROGRESS NOTE Subjective Resting comfortably, no acute changes Vital Signs Vital Signs Date Time Temp Pulse Resp B/P (MAP) Pulse Ox O2 Delivery O2 Flow Rate FiO2 11/12/19 08:58 93 Room Air 11/12/19 07:00 97.8 131 136/72 (93) 2.0 97.8 11/12/19 04:40 32 I&O Intake and Output 11/12/19 07:00 Intake Total 1630 ml Output Total 1785 ml Balance -155 ml IV Total 1630 ml Tube Feeding 0 ml Output Urine Total 930 ml Drainage Total 855 ml PATIENT HAS A ROSARIO: Yes General: Cooperative, mild distress Abdomen: Normal bowel sounds, Soft, No tenderness (Incisional tenderness wounds clean dry and intact wound VAC in place drains in place) Labs Laboratory Tests Test 11/10/19 12:26 11/10/19 18:12 11/11/19 00:02 11/11/19 06:00 Glucose (Fingerstick) 143 mg/dL (70-99) 126 mg/dL (70-99) 138 mg/dL (70-99) White Blood Count 16.9 x10^3/uL (4.0-11.0) Red Blood Count 2.66 x10^6/uL (3.50-5.40) Hemoglobin 7.9 g/dL (12.0-15.5) Hematocrit 24.3 % (36.0-47.0) Mean Corpuscular Volume 91 fL (79-100) Mean Corpuscular Hemoglobin 30 pg (25-35) Mean Corpuscular Hemoglobin Concent 32 g/dL (31-37) Red Cell Distribution Width 16.7 % (11.5-14.5) Platelet Count 569 x10^3/uL (140-400) Neutrophils (%) (Auto) 83 % (31-73) Lymphocytes (%) (Auto) 9 % (24-48) Monocytes (%) (Auto) 6 % (0-9) Eosinophils (%) (Auto) 2 % (0-3) Basophils (%) (Auto) 1 % (0-3) Neutrophils # (Auto) 14.1 x10^3/uL (1.8-7.7) Lymphocytes # (Auto) 1.5 x10^3/uL (1.0-4.8) Monocytes # (Auto) 1.0 x10^3/uL (0.0-1.1) Eosinophils # (Auto) 0.3 x10^3/uL (0.0-0.7) Basophils # (Auto) 0.1 x10^3/uL (0.0-0.2) Test 11/11/19 06:21 11/11/19 07:30 11/11/19 12:24 11/11/19 17:23 Glucose (Fingerstick) 150 mg/dL (70-99) 156 mg/dL (70-99) 123 mg/dL (70-99) Sodium Level 136 mmol/L (136-145) Potassium Level 4.2 mmol/L (3.5-5.1) Chloride Level 103 mmol/L (98-107) Carbon Dioxide Level 26 mmol/L (21-32) Anion Gap 7 (6-14) Blood Urea Nitrogen 13 mg/dL (7-20) Creatinine 0.6 mg/dL (0.6-1.0) Estimated GFR (Cockcroft-Gault) 106.3 BUN/Creatinine Ratio 22 (6-20) Glucose Level 125 mg/dL (70-99) Calcium Level 9.4 mg/dL (8.5-10.1) Total Bilirubin 0.5 mg/dL (0.2-1.0) Aspartate Amino Transf (AST/SGOT) 16 U/L (15-37) Alanine Aminotransferase (ALT/SGPT) 15 U/L (14-59) Alkaline Phosphatase 129 U/L (46-116) Total Protein 5.1 g/dL (6.4-8.2) Albumin 1.1 g/dL (3.4-5.0) Albumin/Globulin Ratio 0.3 (1.0-1.7) Test 11/11/19 23:05 11/12/19 04:45 11/12/19 05:48 Glucose (Fingerstick) 138 mg/dL (70-99) 138 mg/dL (70-99) Sodium Level 137 mmol/L (136-145) Potassium Level 4.3 mmol/L (3.5-5.1) Chloride Level 103 mmol/L (98-107) Carbon Dioxide Level 27 mmol/L (21-32) Anion Gap 7 (6-14) Blood Urea Nitrogen 15 mg/dL (7-20) Creatinine 0.6 mg/dL (0.6-1.0) Estimated GFR (Cockcroft-Gault) 106.3 Glucose Level 140 mg/dL (70-99) Calcium Level 10.0 mg/dL (8.5-10.1) Phosphorus Level 4.2 mg/dL (2.6-4.7) Laboratory Tests Test 11/11/19 12:24 11/11/19 17:23 11/11/19 23:05 11/12/19 04:45 Glucose (Fingerstick) 156 mg/dL (70-99) 123 mg/dL (70-99) 138 mg/dL (70-99) Sodium Level 137 mmol/L (136-145) Potassium Level 4.3 mmol/L (3.5-5.1) Chloride Level 103 mmol/L (98-107) Carbon Dioxide Level 27 mmol/L (21-32) Anion Gap 7 (6-14) Blood Urea Nitrogen 15 mg/dL (7-20) Creatinine 0.6 mg/dL (0.6-1.0) Estimated GFR (Cockcroft-Gault) 106.3 Glucose Level 140 mg/dL (70-99) Calcium Level 10.0 mg/dL (8.5-10.1) Phosphorus Level 4.2 mg/dL (2.6-4.7) Test 11/12/19 05:48 Glucose (Fingerstick) 138 mg/dL (70-99) Problem List Problems Medical Problems: (1) Acute pancreatitis Status: Acute (2) Cholelithiasis Status: Acute Assessment/Plan Status post pancreatic debridement Continue supportive care Justicifation of Admission Dx: Justifications for Admission: Justification of Admission Dx: Yes CARIN MALDONADO MD Nov 12, 2019 09:02
[2019-11-12] MEDS: fentaNYL 12MCG/HR PATCH 1 PATCH PATCH.TD72 TD SCH (09:09)
--- NOTE | 2019-11-12 09:34 | PDOC ---
PROGRESS NOTES Chief Complaint Chief Complaint IMPRESSION S/P Exp. 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 parapsilosis & PSAE (I-merrem/ceftazidime/AZT/cefepime)) Leucocytosis -trending upward Fever Acute gallstone pancreatitis with persistent necrosis Postop (Exploratory laparotomy, lysis of adhesions, subtotal cholecystectomy with cholangiogram, gastrojejunostomy tube placement, pancreatic necrosectomy) Acute hypoxic Respiratory failure required mechanical ventilation Tracheostomy bilateral pleural effusions/pulm edema s/p Throacentesis on 10/03/2019 Severe Acute gallstone pancreatitis (not a surgical candidate at this time) with necrosis Acute kidney failure now requiring dialysis Gallstones (Calculus of gallbladder with acute cholecystitis without obstruction) HTN Intractable pain Intractable nausea Covid 19 negative. Acute on chronic anemia EEG: No seizure activity Fever - intermittent ? Ileus with vomiting Abd distention - U/S and CT reviewed s/p 0.4 L of opaque, debris-containing a scites was removed 08/23 Acute pancreatitis with persistent necrosis Gallstone pancreatitis with necrosis. -CT A/P 09/23 showed multiple pseudocysts, slight larger on the right. s/p drains x 3, 09/24. + PSAE (MDRO-R Cefepime, Zosyn ALEXANDRA < 64) and yeast, -s/p drain 08/14. C. parapsilosis. s/p drain 08/23 + yeast & high amylase; s/p additional drain on 08/25. Drains removed. Ascites s/p paracentesis 08/02 & 08/23. C. parapsilosis JUANA. off HD. A large fluid collection in the pancreatic bed has slightly decreased in size, described below, the pancreas itself is difficult to visualize, which could be due to necrosis or obscuration of pancreatic parenchyma from the surrounding fluid collection.10/02 - 08/14 status post KAYLIN drain placement + C paropsilosis. s/p additional drains 08/25 Anemia - S/p PRBCs. Cholelithiasis with thickening of the gallbladder wall. Leucocytosis improving JUANA, hyperkalemia, Metabolic acidosis off dialysis hypocalcemia Prediabetes HTN s/p trach Hyperglycemia severe protein-caloric malnutrition Moderate to large left pleural effusion with atelectasis and collapse of most of the left lower lobe, stable Extensive retroperitoneal fluid collections persist. Percutaneous drains remain within the collections in both paracolic gutters. These communicate with additional pelvic and peripancreatic collections. PLAN Continue Avycaz /micafungin DC dapto Follow-up C. difficile PCR BC from 11/01 neg to date 37 MIN CC TIME History of Present Illness History of Present Illness 11/11 Patient seen in and examined in the ICU She is still extremely critically ill Appears weak, frail, and pale Better color today with improved eye contact and expression Discussed with RN Chart reviewed 11/08/2019 Patient seen and examined in the ICU She is still extremely critically ill Appears extremely weak frail and pale Discussed with RN Chart reviewed Vitals Vitals Vital Signs Date Time Temp Pulse Resp B/P (MAP) Pulse Ox O2 Delivery O2 Flow Rate FiO2 11/12/19 09:09 97 Room Air 2.0 11/12/19 07:00 97.8 131 136/72 (93) 97.8 11/12/19 04:40 32 Physical Exam Physical Exam GENERAL: pt in bed, appears weak HEENT: Pupils equal, oral cavity dry. NGT out NECK: Tracheostomy LUNGS: Diminished aeration bases, CT on left HEART: S1, S2, tachy 110s ABDOMEN: Distended, bowel sounds hypoactive, soft, goyal x 2, KAYLIN drains, G-J tube : Lind in place EXTREMITIES: Trace generalized edema, no cyanosis. RADHA hose bilaterally, SKIN: warm touch. No signs of rash. LUE-PICC without signs of complications General: Cooperative, mild distress Heart: Other (distant heart sounds, tachycardic) Lungs: Crackles Abdomen: Normal bowel sounds, Soft, No tenderness (Incisional tenderness wounds clean dry and intact wound VAC in place drains in place) Extremities: Other (Diffuse edema) Skin: No rashes, No significant lesion Labs LABS MARILYN HOLDEN MD,HARMEET RIVAS,MARY MALDONADO,CARIN Sorto MD ORDERED: BCULT Procedure Result BLOOD CULTURE Preliminary NO GROWTH AFTER 4 DAYS MMENTS: CHEST FLUID Procedure Result GRAM STAIN Final Final NO ORGANISMS SEEN. SQUAMOUS EPI CELL:NOT APPLICABLE PMN (WBCs):RARE Unless otherwise specified, Testing Performed by: [address] [place] [address] For Inquires, the Physician may contact the Microbiology department at [phone] ANAEROBIC-AEROBIC CULTURE Preliminary Preliminary No Growth on 11/09/19 at 0957 FEW YEAST on 11/10/19 at 1500 FINAL ID= [FRANCIS PARAPSILOSIS] FRANCIS PARAPSILOSIS Unless otherwise specified, Testing Performed by: [address] [address] For Inquires, the Physician may contact the Microbiology department at [phone] Laboratory Tests Test 11/11/19 12:24 11/11/19 17:23 11/11/19 23:05 11/12/19 04:45 Glucose (Fingerstick) 156 mg/dL (70-99) 123 mg/dL (70-99) 138 mg/dL (70-99) Sodium Level 137 mmol/L (136-145) Potassium Level 4.3 mmol/L (3.5-5.1) Chloride Level 103 mmol/L (98-107) Carbon Dioxide Level 27 mmol/L (21-32) Anion Gap 7 (6-14) Blood Urea Nitrogen 15 mg/dL (-20) Creatinine 0.6 mg/dL (0.6-1.0) Estimated GFR (Cockcroft-Gault) 106.3 Glucose Level 140 mg/dL (70-99) Calcium Level 10.0 mg/dL (8.5-10.1) Phosphorus Level 4.2 mg/dL (2.6-4.7) Test 11/12/19 05:48 Glucose (Fingerstick) 138 mg/dL (70-99) Assessment and Plan Assessmemt and Plan Problems Medical Problems: (1) Acute pancreatitis Status: Acute (2) Cholelithiasis Status: Acute Comment Review of Relevant I have reviewed the following items kolby (where applicable) has been applied. Labs Laboratory Tests Test 11/10/19 12:26 11/10/19 18:12 11/11/19 00:02 11/11/19 06:00 Glucose (Fingerstick) 143 mg/dL (70-99) 126 mg/dL (70-99) 138 mg/dL (70-99) White Blood Count 16.9 x10^3/uL (4.0-11.0) Red Blood Count 2.66 x10^6/uL (3.50-5.40) Hemoglobin 7.9 g/dL (12.0-15.5) Hematocrit 24.3 % (36.0-47.0) Mean Corpuscular Volume 91 fL (79-100) Mean Corpuscular Hemoglobin 30 pg (25-35) Mean Corpuscular Hemoglobin Concent 32 g/dL (31-37) Red Cell Distribution Width 16.7 % (11.5-14.5) Platelet Count 569 x10^3/uL (140-400) Neutrophils (%) (Auto) 83 % (31-73) Lymphocytes (%) (Auto) 9 % (24-48) Monocytes (%) (Auto) 6 % (0-9) Eosinophils (%) (Auto) 2 % (0-3) Basophils (%) (Auto) 1 % (0-3) Neutrophils # (Auto) 14.1 x10^3/uL (1.8-7.7) Lymphocytes # (Auto) 1.5 x10^3/uL (1.0-4.8) Monocytes # (Auto) 1.0 x10^3/uL (0.0-1.1) Eosinophils # (Auto) 0.3 x10^3/uL (0.0-0.7) Basophils # (Auto) 0.1 x10^3/uL (0.0-0.2) Test 11/11/19 06:21 11/11/19 07:30 11/11/19 12:24 11/11/19 17:23 Glucose (Fingerstick) 150 mg/dL (70-99) 156 mg/dL (70-99) 123 mg/dL (70-99) Sodium Level 136 mmol/L (136-145) Potassium Level 4.2 mmol/L (3.5-5.1) Chloride Level 103 mmol/L (98-107) Carbon Dioxide Level 26 mmol/L (21-32) Anion Gap 7 (6-14) Blood Urea Nitrogen 13 mg/dL (7-20) Creatinine 0.6 mg/dL (0.6-1.0) Estimated GFR (Cockcroft-Gault) 106.3 BUN/Creatinine Ratio 22 (6-20) Glucose Level 125 mg/dL (70-99) Calcium Level 9.4 mg/dL (8.5-10.1) Total Bilirubin 0.5 mg/dL (0.2-1.0) Aspartate Amino Transf (AST/SGOT) 16 U/L (15-37) Alanine Aminotransferase (ALT/SGPT) 15 U/L (14-59) Alkaline Phosphatase 129 U/L (46-116) Total Protein 5.1 g/dL (6.4-8.2) Albumin 1.1 g/dL (3.4-5.0) Albumin/Globulin Ratio 0.3 (1.0-1.7) Test 11/11/19 23:05 11/12/19 04:45 11/12/19 05:48 Glucose (Fingerstick) 138 mg/dL (70-99) 138 mg/dL (70-99) Sodium Level 137 mmol/L (136-145) Potassium Level 4.3 mmol/L (3.5-5.1) Chloride Level 103 mmol/L (98-107) Carbon Dioxide Level 27 mmol/L (21-32) Anion Gap 7 (6-14) Blood Urea Nitrogen 15 mg/dL (7-20) Creatinine 0.6 mg/dL (0.6-1.0) Estimated GFR (Cockcroft-Gault) 106.3 Glucose Level 140 mg/dL (70-99) Calcium Level 10.0 mg/dL (8.5-10.1) Phosphorus Level 4.2 mg/dL (2.6-4.7) Laboratory Tests Test 11/11/19 12:24 11/11/19 17:23 11/11/19 23:05 11/12/19 04:45 Glucose (Fingerstick) 156 mg/dL (70-99) 123 mg/dL (70-99) 138 mg/dL (70-99) Sodium Level 137 mmol/L (136-145) Potassium Level 4.3 mmol/L (3.5-5.1) Chloride Level 103 mmol/L (98-107) Carbon Dioxide Level 27 mmol/L (21-32) Anion Gap 7 (6-14) Blood Urea Nitrogen 15 mg/dL (7-20) Creatinine 0.6 mg/dL (0.6-1.0) Estimated GFR (Cockcroft-Gault) 106.3 Glucose Level 140 mg/dL (70-99) Calcium Level 10.0 mg/dL (8.5-10.1) Phosphorus Level 4.2 mg/dL (2.6-4.7) Test 11/12/19 05:48 Glucose (Fingerstick) 138 mg/dL (70-99) Microbiology 11/08/19 Blood Culture - Preliminary, Resulted NO GROWTH AFTER 3 DAYS 11/08/19 Gram Stain - Final, Resulted 11/08/19 Aerobic and Anaerobic Culture - Preliminary, Resulted 11/06/19 Gram Stain Evaluation - Final, Complete 11/06/19 Respiratory Culture - Final, Complete 11/06/19 Antimicrobic Susceptibility - Final, Complete 10/18/19 Gram Stain - Final, Complete 10/18/19 Aerobic and Anaerobic Culture - Final, Complete 10/18/19 Antimicrobic Susceptibility - Final, Complete 09/25/19 Urine Culture - Final, Complete 09/17/19 Gram Stain - Final, Complete 09/17/19 Aerobic Culture - Final, Complete Medications Current Medications Sodium Chloride 1,000 ml @ 1,000 mls/hr Q1H IV Last administered on 07/04/19at 03:00; Start 07/04/19 at 03:00; Stop 07/04/19 at 03:59; Status DC Ondansetron HCl (Zofran) 4 mg 1X ONCE IVP Last administered on 07/04/19at 03:27; Start 07/04/19 at 03:00; Stop 07/04/19 at 03:01; Status DC Morphine Sulfate (Morphine Sulfate) 4 mg 1X ONCE IV ; Start 07/04/19 at 03:00; Stop 07/04/19 at 03:01; Status Cancel Ketorolac Tromethamine (Toradol 30mg Vial) 30 mg 1X ONCE IV Last administered on 07/04/19at 02:54; Start 07/04/19 at 03:00; Stop 07/04/19 at 03:01; Status DC Fentanyl Citrate (Fentanyl 2ml Vial) 25 mcg 1X ONCE IVP Last administered on 07/04/19at 03:23; Start 07/04/19 at 03:30; Stop 07/04/19 at 03:31; Status DC Fentanyl Citrate (Fentanyl 2ml Vial) 100 mcg STK-MED ONCE .ROUTE ; Start 07/04/19 at 03:18; Stop 07/04/19 at 03:18; Status DC Iohexol (Omnipaque 350 Mg/ml) 90 ml 1X ONCE IV Last administered on 07/04/19at 03:25; Start 07/04/19 at 03:30; Stop 07/04/19 at 03:31; Status DC Info (CONTRAST GIVEN -- Rx MONITORING) 1 each PRN DAILY PRN MC SEE COMMENTS; Start 07/04/19 at 03:30; Stop 07/06/19 at 03:29; Status DC Hydromorphone HCl (Dilaudid) 0.5 mg 1X ONCE IV Last administered on 07/04/19at 03:55; Start 07/04/19 at 04:30; Stop 07/04/19 at 04:32; Status DC Ondansetron HCl (Zofran) 4 mg PRN Q8HRS PRN IV NAUSEA/VOMITING 1ST CHOICE; Start 07/04/19 at 05:00; Stop 07/04/19 at 09:27; Status DC Morphine Sulfate (Morphine Sulfate) 2 mg PRN Q2HR PRN IV SEVERE PAIN 7-10 Last administered on 07/05/19at 12:26; Start 07/04/19 at 05:00; Stop 07/05/19 at 14:15; Status DC Sodium Chloride 1,000 ml @ 125 mls/hr Q8H IV Last administered on 07/04/19at 20:56; Start 07/04/19 at 05:00; Stop 07/05/19 at 04:59; Status DC Hydromorphone HCl (Dilaudid) 0.5 mg PRN Q3HRS PRN IV SEVERE PAIN 7-10 Last administered on 07/05/19at 10:06; Start 07/04/19 at 05:00; Stop 07/05/19 at 12:01; Status DC Piperacillin Sod/ Tazobactam Sod 4.5 gm/Sodium Chloride 100 ml @ 200 mls/hr 1X ONCE IV Last administered on 07/04/19at 05:44; Start 07/04/19 at 06:00; Stop 07/04/19 at 06:29; Status DC Ondansetron HCl (Zofran) 4 mg PRN Q4HRS PRN IV NAUSEA/VOMITING 1ST CHOICE Last administered on 11/10/19at 20:49; Start 07/04/19 at 09:30 Insulin Human Lispro (HumaLOG) 0-9 UNITS Q6HRS SQ Last administered on 11/11/19at 12:26; Start 07/04/19 at 09:30 Dextrose (Dextrose 50%-Water Syringe) 12.5 gm PRN Q15MIN PRN IV SEE COMMENTS; Start 07/04/19 at 09:30 Pantoprazole Sodium (PROTONIX VIAL for IV PUSH) 40 mg DAILYAC IVP Last administered on 11/12/19at 07:56; Start 07/04/19 at 11:30 Prochlorperazine Edisylate (Compazine) 10 mg PRN Q6HRS PRN IV NAUSEA/VOMITING, 2nd CHOICE Last administered on 11/10/19at 13:45; Start 07/04/19 at 17:45 Atenolol (Tenormin) 100 mg DAILY PO ; Start 07/05/19 at 09:00; Stop 07/04/19 at 20:08; Status DC Metoprolol Tartrate (Lopressor Vial) 2.5 mg Q6HRS IVP Last administered on 07/05/19at 05:51; Start 07/04/19 at 20:15; Stop 07/05/19 at 10:02; Status DC Metoprolol Tartrate (Lopressor Vial) 5 mg Q6HRS IVP Last administered on 07/14/19at 00:12; Start 07/05/19 at 10:15; Stop 07/16/19 at 08:48; Status DC Hydromorphone HCl (Dilaudid) 1 mg PRN Q3HRS PRN IV SEVERE PAIN 7-10 Last administered on 07/11/19at 05:13; Start 07/05/19 at 12:00; Stop 07/19/19 at 00:25; Status DC Lidocaine HCl (Buffered Lidocaine 1%) 3 ml STK-MED ONCE .ROUTE ; Start 07/05/19 at 12:55; Stop 07/05/19 at 12:56; Status DC Albumin Human 500 ml @ 125 mls/hr 1X ONCE IV Last administered on 07/05/19at 14:33; Start 07/05/19 at 14:30; Stop 07/05/19 at 18:32; Status DC Norepinephrine Bitartrate 8 mg/ Dextrose 258 ml @ 17.299 mls/ hr CONT PRN IV PER PROTOCOL Last administered on 08/02/19at 12:48; Start 07/05/19 at 15:30; Stop 08/05/19 at 09:19; Status DC Sodium Chloride 1,000 ml @ 125 mls/hr Q8H IV Last administered on 07/05/19at 21:04; Start 07/05/19 at 16:00; Stop 07/06/19 at 02:42; Status DC Albumin Human 500 ml @ 125 mls/hr PRN BID PRN IV After every 2L NSS & BP < 90mm Last administered on 10/18/19at 16:06; Start 07/05/19 at 16:00; Stop 10/21/19 at 09:30; Status DC Iohexol (Omnipaque 300 Mg/ml) 60 ml 1X ONCE IV Last administered on 07/05/19at 17:20; Start 07/05/19 at 17:00; Stop 07/05/19 at 17:01; Status DC Info (CONTRAST GIVEN -- Rx MONITORING) 1 each PRN DAILY PRN MC SEE COMMENTS; Start 07/05/19 at 17:00; Stop 07/07/19 at 16:59; Status DC Meropenem 1 gm/ Sodium Chloride 100 ml @ 200 mls/hr Q8HRS IV Last administered on 07/06/19at 05:45; Start 07/05/19 at 20:00; Stop 07/06/19 at 08:48; Status DC Furosemide (Lasix) 40 mg 1X ONCE IVP Last administered on 07/05/19at 22:12; Start 07/05/19 at 22:30; Stop 07/05/19 at 22:31; Status DC Calcium Chloride 1000 mg/Sodium Chloride 110 ml @ 220 mls/hr 1X ONCE IV Last administered on 07/05/19at 22:11; Start 07/05/19 at 22:30; Stop 07/05/19 at 22:59; Status DC Albuterol Sulfate (Ventolin Neb Soln) 2.5 mg 1X ONCE NEB Last administered on 07/06/19at 00:56; Start 07/05/19 at 22:30; Stop 07/05/19 at 22:31; Status DC Insulin Human Regular (HumuLIN R VIAL) 5 unit 1X ONCE IV Last administered on 07/05/19at 22:14; Start 07/05/19 at 22:30; Stop 07/05/19 at 22:31; Status DC Magnesium Sulfate 50 ml @ 25 mls/hr 1X ONCE IV Last administered on 07/06/19at 02:57; Start 07/06/19 at 03:00; Stop 07/06/19 at 04:59; Status DC Calcium Gluconate 1000 mg/Sodium Chloride 110 ml @ 220 mls/hr 1X ONCE IV Last administered on 07/06/19at 02:46; Start 07/06/19 at 03:00; Stop 07/06/19 at 03:29; Status DC Sodium Chloride 1,000 ml @ 200 mls/hr Q5H IV Last administered on 07/06/19at 02:46; Start 07/06/19 at 03:00; Stop 07/06/19 at 10:21; Status DC Calcium Gluconate 1000 mg/Sodium Chloride 110 ml @ 220 mls/hr 1X ONCE IV Last administered on 07/06/19at 03:21; Start 07/06/19 at 03:30; Stop 07/06/19 at 03:59; Status DC Sodium Bicarbonate 50 meq/Sodium Chloride 1,050 ml @ 75 mls/hr Q14H IV Last administered on 07/10/19at 21:10; Start 07/06/19 at 07:30; Stop 07/11/19 at 10:28; Status DC Calcium Gluconate 2000 mg/Sodium Chloride 120 ml @ 220 mls/hr 1X ONCE IV Last administered on 07/06/19at 09:05; Start 07/06/19 at 07:30; Stop 07/06/19 at 08:02; Status DC Lidocaine HCl (Xylocaine-Mpf 1% 2ml Vial) 2 ml STK-MED ONCE .ROUTE ; Start 07/06/19 at 08:47; Stop 07/06/19 at 08:47; Status DC Meropenem 500 mg/ Sodium Chloride 50 ml @ 100 mls/hr Q12HR IV Last administered on 07/11/19at 21:01; Start 07/06/19 at 18:00; Stop 07/12/19 at 07:58; Status DC Lidocaine HCl (Buffered Lidocaine 1%) 3 ml STK-MED ONCE .ROUTE ; Start 07/06/19 at 09:46; Stop 07/06/19 at 09:46; Status DC Lidocaine HCl (Buffered Lidocaine 1%) 6 ml 1X ONCE INJ Last administered on 07/06/19at 10:26; Start 07/06/19 at 10:15; Stop 07/06/19 at 10:16; Status DC Info (Tpn Per Pharmacy) 1 each PRN DAILY PRN MC SEE COMMENTS Last administered on 11/11/19at 11:30; Start 07/06/19 at 12:00 Sodium Chloride 1,000 ml @ 1,000 mls/hr Q1H PRN IV hypotension; Start 07/06/19 at 12:07; Stop 07/06/19 at 18:06; Status DC Diphenhydramine HCl (Benadryl) 25 mg 1X PRN PRN IV ITCHING; Start 07/06/19 at 12:15; Stop 07/07/19 at 12:14; Status DC Diphenhydramine HCl (Benadryl) 25 mg 1X PRN PRN IV ITCHING; Start 07/06/19 at 12:15; Stop 07/07/19 at 12:14; Status DC Sodium Chloride 1,000 ml @ 400 mls/hr Q2H30M PRN IV PATENCY; Start 07/06/19 at 12:07; Stop 07/07/19 at 00:06; Status DC Info (PHARMACY MONITORING -- do not chart) 1 each PRN DAILY PRN MC SEE COMMENTS; Start 07/06/19 at 12:15; Stop 07/08/19 at 08:13; Status DC Sodium Chloride 90 meq/Calcium Gluconate 10 meq/ Multivitamins 10 ml/Chromium/ C opper/Manganese/ Seleni/Zn 1 ml/ Total Parenteral Nutrition/Amino Acids/Dextrose/ Fat Emulsion Intravenous 55.005 ml @ 2.292 mls/hr TPN CONT IV ; Start 07/06/19 at 22:00; Stop 07/06/19 at 12:33; Status DC Info (Tpn Per Pharmacy) 1 each PRN DAILY PRN MC SEE COMMENTS; Start 07/06/19 at 12:30; Status UNV Sodium Chloride 90 meq/Calcium Gluconate 10 meq/ Multivitamins 10 ml/Chromium/ Copper/Manganese/ Seleni/Zn 0.5 ml/ Total Parenteral Nutrition/Amino Acids/Dextrose/ Fat Emulsion Intravenous 1,512 ml @ 63 mls/hr TPN CONT IV Last administered on 07/06/19at 22:06; Start 07/06/19 at 22:00; Stop 07/07/19 at 21:59; Status DC Calcium Carbonate/ Glycine (Tums) 500 mg PRN AFTMEALHC PRN PO INDIGESTION; Start 07/06/19 at 17:45; Stop 08/31/19 at 10:25; Status DC Calcium Gluconate (Calcium Gluconate) 2,000 mg 1X ONCE IVP Last administered on 07/07/19at 02:19; Start 07/07/19 at 02:15; Stop 07/07/19 at 02:16; Status DC Calcium Chloride 3000 mg/Sodium Chloride 1,030 ml @ 50 mls/hr [id number] IV Last administered on 07/09/19at 02:17; Start 07/07/19 at 08:00; Stop 07/09/19 at 15:23; Status DC Lorazepam (Ativan Inj) 1 mg PRN Q4HRS PRN IVP ANXIETY / AGITATION, 2nd choic Last administered on 08/05/19at 03:51; Start 07/07/19 at 09:00; Stop 08/05/19 at 09:19; Status DC Sodium Chloride 1,000 ml @ 1,000 mls/hr Q1H PRN IV hypotension; Start 07/07/19 at 08:56; Stop 07/07/19 at 14:55; Status DC Albumin Human 200 ml @ 200 mls/hr 1X PRN PRN IV Hypotension; Start 07/07/19 at 09:00; Stop 07/07/19 at 14:59; Status DC Diphenhydramine HCl (Benadryl) 25 mg 1X PRN PRN IV ITCHING; Start 07/07/19 at 09:00; Stop 07/08/19 at 08:59; Status DC Diphenhydramine HCl (Benadryl) 25 mg 1X PRN PRN IV ITCHING; Start 07/07/19 at 09:00; Stop 07/08/19 at 08:59; Status DC Sodium Chloride 1,000 ml @ 400 mls/hr Q2H30M PRN IV PATENCY; Start 07/07/19 at 08:56; Stop 07/07/19 at 20:55; Status DC Info (PHARMACY MONITORING -- do not chart) 1 each PRN DAILY PRN MC SEE COMMENTS; Start 07/07/19 at 09:00; Status UNV Info (PHARMACY MONITORING -- do not chart) 1 each PRN DAILY PRN MC SEE COMMENTS; Start 07/07/19 at 09:00; Stop 07/08/19 at 08:13; Status DC Digoxin (Lanoxin) 500 mcg 1X ONCE IV Last administered on 07/07/19at 10:04; Start 07/07/19 at 10:00; Stop 07/07/19 at 10:01; Status DC Digoxin (Lanoxin) 125 mcg 1X ONCE IV Last administered on 07/07/19at 17:10; Start 07/07/19 at 18:00; Stop 07/07/19 at 18:01; Status DC Magnesium Sulfate 100 ml @ 25 mls/hr 1X ONCE IV Last administered on 07/07/19at 12:48; Start 07/07/19 at 13:00; Stop 07/07/19 at 16:59; Status DC Sodium Chloride 90 meq/Magnesium Sulfate 10 meq/ Calcium Gluconate 20 meq/ Multivitamins 10 ml/Chromium/ Copper/Manganese/ Seleni/Zn 0.5 ml/ Total Parenteral Nutrition/Amino Acids/Dextrose/ Fat Emulsion Intravenous 1,512 ml @ 63 mls/hr TPN CONT IV Last administered on 07/07/19at 22:25; Start 07/07/19 at 22:00; Stop 07/08/19 at 21:59; Status DC Sodium Chloride 1,000 ml @ 1,000 mls/hr Q1H PRN IV hypotension; Start 07/08/19 at 08:05; Stop 07/08/19 at 14:04; Status DC Albumin Human 200 ml @ 200 mls/hr 1X ONCE IV Last administered on 07/08/19at 08:57; Start 07/08/19 at 08:15; Stop 07/08/19 at 09:14; Status DC Diphenhydramine HCl (Benadryl) 25 mg 1X PRN PRN IV ITCHING; Start 07/08/19 at 08:15; Stop 07/09/19 at 08:14; Status DC Diphenhydramine HCl (Benadryl) 25 mg 1X PRN PRN IV ITCHING; Start 07/08/19 at 08:15; Stop 07/09/19 at 08:14; Status DC Sodium Chloride 1,000 ml @ 400 mls/hr Q2H30M PRN IV PATENCY; Start 07/08/19 at 08:05; Stop 07/08/19 at 20:04; Status DC Info (PHARMACY MONITORING -- do not chart) 1 each PRN DAILY PRN MC SEE COMMENTS; Start 07/08/19 at 08:15; Stop 07/12/19 at 07:57; Status DC Sodium Chloride 90 meq/Potassium Chloride 15 meq/ Potassium Phosphate 10 mmol/ Magnesium Sulfate 10 meq/Calcium Gluconate 20 meq/ Multivitamins 10 ml/Chromium/ Copper/Manganese/ Seleni/Zn 0.5 ml/ Total Parenteral Nutrition/Amino Acids/Dextrose/ Fat Emulsion Intravenous 1,512 ml @ 63 mls/hr TPN CONT IV Last administered on 07/08/19at 21:01; Start 07/08/19 at 22:00; Stop 07/09/19 at 21:59; Status DC Potassium Chloride/Water 100 ml @ 100 mls/hr 1X ONCE IV Last administered on 07/08/19at 14:09; Start 07/08/19 at 14:00; Stop 07/08/19 at 14:59; Status DC Benzocaine (Hurricaine One) 1 spray 1X ONCE MM Last administered on 07/08/19at 16:38; Start 07/08/19 at 14:30; Stop 07/08/19 at 14:31; Status DC Lidocaine HCl (Glydo (Lidocaine) Jelly) 1 ramu 1X ONCE MM Last administered on 07/08/19at 16:38; Start 07/08/19 at 14:30; Stop 07/08/19 at 14:31; Status DC Linezolid/Dextrose 300 ml @ 300 mls/hr Q12HR IV Last administered on 07/14/19at 21:04; Start 07/08/19 at 20:00; Stop 07/15/19 at 07:50; Status DC Acetaminophen (Tylenol) 650 mg PRN Q6HRS PRN PO MILD PAIN / TEMP; Start 07/09/19 at 03:30; Stop 07/09/19 at 03:36; Status DC Acetaminophen (Tylenol) 650 mg PRN Q6HRS PRN PEG MILD PAIN / TEMP Last administered on 08/04/19at 19:56; Start 07/09/19 at 03:36; Stop 08/31/19 at 10:25; Status DC Sodium Chloride 1,000 ml @ 1,000 mls/hr Q1H PRN IV hypotension; Start 07/09/19 at 07:50; Stop 07/09/19 at 13:49; Status DC Albumin Human 200 ml @ 200 mls/hr 1X PRN PRN IV Hypotension; Start 07/09/19 at 08:00; Stop 07/09/19 at 13:59; Status DC Sodium Chloride (Normal Saline Flush) 10 ml 1X PRN PRN IV AP catheter pack; Start 07/09/19 at 08:00; Stop 07/10/19 at 07:59; Status DC Sodium Chloride (Normal Saline Flush) 10 ml 1X PRN PRN IV PROPOSITION PLAYER catheter pack; Start 07/09/19 at 08:00; Stop 07/10/19 at 07:59; Status DC Sodium Chloride 1,000 ml @ 400 mls/hr Q2H30M PRN IV PATENCY; Start 07/09/19 at 07:50; Stop 07/09/19 at 19:49; Status DC Info (PHARMACY MONITORING -- do not chart) 1 each PRN DAILY PRN MC SEE COMMENTS; Start 07/09/19 at 08:00; Status UNV Info (PHARMACY MONITORING -- do not chart) 1 each PRN DAILY PRN MC SEE COMMENTS; Start 07/09/19 at 08:00; Stop 07/11/19 at 08:25; Status DC Sodium Chloride 90 meq/Potassium Chloride 15 meq/ Potassium Phosphate 10 mmol/ Magnesium Sulfate 10 meq/Calcium Gluconate 20 meq/ Multivitamins 10 ml/Chromium/ Copper/Manganese/ Seleni/Zn 0.5 ml/ Total Parenteral Nutrition/Amino Acids/De xtrose/ Fat Emulsion Intravenous 1,512 ml @ 63 mls/hr TPN CONT IV Last administered on 07/09/19at 20:57; Start 07/09/19 at 22:00; Stop 07/10/19 at 21:59; Status DC Sodium Chloride 90 meq/Potassium Chloride 15 meq/ Potassium Phosphate 15 mmol/ Magnesium Sulfate 10 meq/Calcium Gluconate 20 meq/ Multivitamins 10 ml/Chromium/ Copper/Manganese/ Seleni/Zn 0.5 ml/ Total Parenteral Nutrition/Amino Acids/Dextrose/ Fat Emulsion Intravenous 1,512 ml @ 63 mls/hr TPN CONT IV ; Start 07/10/19 at 22:00; Stop 07/10/19 at 14:16; Status DC Sodium Chloride 90 meq/Potassium Chloride 15 meq/ Potassium Phosphate 15 mmol/ Magnesium Sulfate 10 meq/Calcium Gluconate 20 meq/ Multivitamins 10 ml/Chromium/ Copper/Manganese/ Seleni/Zn 0.5 ml/ Total Parenteral Nutrition/Amino Acids /Dextrose/ Fat Emulsion Intravenous 1,200 ml @ 50 mls/hr TPN CONT IV ; Start 07/10/19 at 22:00; Stop 07/10/19 at 14:17; Status DC Sodium Chloride 90 meq/Potassium Chloride 15 meq/ Potassium Phosphate 10 mmol/ Magnesium Sulfate 10 meq/Calcium Gluconate 20 meq/ Multivitamins 10 ml/Chromium/ Copper/Manganese/ Seleni/Zn 0.5 ml/ Total Parenteral Nutrition/Amino Acids/Dextrose/ Fat Emulsion Intravenous 1,200 ml @ 50 mls/hr TPN CONT IV Last administered on 07/10/19at 23:29; Start 07/10/19 at 22:00; Stop 07/11/19 at 21:59; Status DC Sodium Chloride 1,000 ml @ 1,000 mls/hr Q1H PRN IV hypotension; Start 07/11/19 at 07:28; Stop 07/11/19 at 13:27; Status DC Albumin Human 200 ml @ 200 mls/hr 1X ONCE IV Last administered on 07/11/19at 08:51; Start 07/11/19 at 07:30; Stop 07/11/19 at 08:29; Status DC Diphenhydramine HCl (Benadryl) 25 mg 1X PRN PRN IV ITCHING; Start 07/11/19 at 07:30; Stop 07/12/19 at 07:29; Status DC Diphenhydramine HCl (Benadryl) 25 mg 1X PRN PRN IV ITCHING; Start 07/11/19 at 07:30; Stop 07/12/19 at 07:29; Status DC Sodium Chloride 1,000 ml @ 400 mls/hr Q2H30M PRN IV PATENCY; Start 07/11/19 at 07:28; Stop 07/11/19 at 19:27; Status DC Info (PHARMACY MONITORING -- do not chart) 1 each PRN DAILY PRN MC SEE COMMENTS; Start 07/11/19 at 07:30; Stop 07/22/19 at 13:01; Status DC Metronidazole 100 ml @ 100 mls/hr Q6HRS IV Last administered on 07/27/19at 06:26; Start 07/11/19 at 08:30; Stop 07/27/19 at 09:58; Status DC Micafungin Sodium 100 mg/Dextrose 100 ml @ 100 mls/hr Q24H IV Last administered on 08/18/19at 08:18; Start 07/11/19 at 09:00; Stop 08/18/19 at 20:58; Status DC Propofol 0 ml @ As Directed STK-MED ONCE IV ; Start 07/11/19 at 07:53; Stop 07/11/19 at 07:53; Status DC Etomidate (Amidate) 20 mg STK-MED ONCE IV ; Start 07/11/19 at 07:53; Stop 07/11/19 at 07:54; Status DC Midazolam HCl (Versed) 5 mg STK-MED ONCE .ROUTE ; Start 07/11/19 at 07:57; Stop 07/11/19 at 07:57; Status DC Fentanyl Citrate 30 ml @ 0 mls/hr CONT PRN IV SEE PROTOCOL Last administered on 08/05/19at 06:12; Start 07/11/19 at 08:15; Stop 08/05/19 at 09:19; Status DC Artificial Tears (Artificial Tears) 1 drop PRN Q1HR PRN OU DRY EYE, 1st choice; Start 07/11/19 at 08:15; Stop 08/17/19 at 05:31; Status DC Midazolam HCl 50 mg/Sodium Chloride 50 ml @ 0 mls/hr CONT PRN IV SEE PROTOCOL Last administered on 07/14/19at 22:39; Start 07/11/19 at 08:15; Stop 07/16/19 at 15:59; Status DC Etomidate (Amidate) 8 mg 1X ONCE IV Last administered on 07/11/19at 08:33; Start 07/11/19 at 08:30; Stop 07/11/19 at 08:31; Status DC Succinylcholine Chloride (Anectine) 120 mg 1X ONCE IV Last administered on 07/11/19at 08:34; Start 07/11/19 at 08:30; Stop 07/11/19 at 08:31; Status DC Midazolam HCl (Versed) 5 mg 1X ONCE IV ; Start 07/11/19 at 08:30; Stop 07/11/19 at 08:31; Status DC Potassium Chloride 15 meq/ Bicarbonate Dialysis Soln w/ out KCl 5,007.5 ml @ 1,000 mls/ hr Q5H1M IV Last administered on 07/12/19at 11:11; Start 07/11/19 at 12:00; Stop 07/12/19 at 11:15; Status DC Potassium Chloride 15 meq/ Bicarbonate Dialysis Soln w/ out KCl 5,007.5 ml @ 1,000 mls/ hr Q5H1M IV Last administered on 07/12/19at 11:12; Start 07/11/19 at 12:00; Stop 07/12/19 at 11:17; Status DC Potassium Chloride 15 meq/ Bicarbonate Dialysis Soln w/ out KCl 5,007.5 ml @ 1,000 mls/ hr Q5H1M IV Last administered on 07/12/19at 11:11; Start 07/11/19 at 12:00; Stop 07/12/19 at 11:19; Status DC Sodium Chloride 90 meq/Potassium Chloride 15 meq/ Potassium Phosphate 10 mmol/ Magnesium Sulfate 10 meq/Calcium Gluconate 20 meq/ Multivitamins 10 ml/Chromium/ Copper/Manganese/ Seleni/Zn 0.5 ml/ Total Parenteral Nutrition/Amino Acids/Dextrose/ Fat Emulsion Intravenous 1,400 ml @ 58.333 mls/ hr TPN CONT IV Last administered on 07/11/19at 21:42; Start 07/11/19 at 22:00; Stop 07/12/19 at 21:59; Status DC Heparin Sodium (Porcine) (Heparin Sodium) 5,000 unit Q8HRS SQ Last administered on 07/16/19at 05:55; Start 07/11/19 at 15:00; Stop 07/16/19 at 13:28; Status DC Meropenem 500 mg/ Sodium Chloride 50 ml @ 100 mls/hr Q6HRS IV Last administered on 07/13/19at 06:00; Start 07/12/19 at 09:00; Stop 07/13/19 at 07:29; Status DC Potassium Phosphate 20 mmol/ Sodium Chloride 106.6667 ml @ 51.667 m... 1X ONCE IV Last administered on 07/12/19at 11:22; Start 07/12/19 at 10:15; Stop 07/12/19 at 12:18; Status DC Acetaminophen (Tylenol Supp) 650 mg PRN Q6HRS PRN AL MILD PAIN / TEMP > 100.3'F Last administered on 11/09/19at 20:53; Start 07/12/19 at 10:30 Potassium Chloride/Water 100 ml @ 100 mls/hr Q1H IV Last administered on 07/12/19at 12:12; Start 07/12/19 at 11:00; Stop 07/12/19 at 12:59; Status DC Potassium Chloride 20 meq/ Bicarbonate Dialysis Soln w/ out KCl 5,010 ml @ 1,000 mls/hr Q5H1M IV Last administered on 07/13/19at 08:48; Start 07/12/19 at 12:00; Stop 07/13/19 at 13:03; Status DC Potassium Chloride 20 meq/ Bicarbonate Dialysis Soln w/ out KCl 5,010 ml @ 1,000 mls/hr Q5H1M IV Last administered on 07/17/19at 14:52; Start 07/12/19 at 11:30; Stop 07/17/19 at 19:59; Status DC Potassium Chloride 20 meq/ Bicarbonate Dialysis Soln w/ out KCl 5,010 ml @ 1,000 mls/hr Q5H1M IV Last administered on 07/17/19at 14:53; Start 07/12/19 at 11:30; Stop 07/17/19 at 19:59; Status DC Sodium Chloride 90 meq/Potassium Chloride 15 meq/ Potassium Phosphate 15 mmol/ Magnesium Sulfate 10 meq/Calcium Gluconate 15 meq/ Multivitamins 10 ml/Chromium/ Copper/Manganese/ Seleni/Zn 0.5 ml/ Total Parenteral Nutrition/Amino Acids/Dextrose/ Fat Emulsion Intravenous 1,400 ml @ 58.333 mls/ hr TPN CONT IV Last administered on 07/12/19at 22:17; Start 07/12/19 at 22:00; Stop 07/13/19 at 21:59; Status DC Cefepime HCl (Maxipime) 2 gm Q12HR IVP Last administered on 07/26/19at 20:56; Start 07/13/19 at 09:00; Stop 07/27/19 at 09:58; Status DC Daptomycin 500 mg/ Sodium Chloride 50 ml @ 100 mls/hr Q48H IV Last administered on 07/29/19at 09:57; Start 07/13/19 at 08:30; Stop 07/29/19 at 10:07; Status DC Lidocaine HCl (Buffered Lidocaine 1%) 3 ml 1X ONCE INJ Last administered on 07/13/19at 10:27; Start 07/13/19 at 10:30; Stop 07/13/19 at 10:31; Status DC Potassium Phosphate 20 mmol/ Sodium Chloride 106.6667 ml @ 51.667 m... 1X ONCE IV Last administered on 07/13/19at 12:51; Start 07/13/19 at 13:00; Stop 07/13/19 at 15:03; Status DC Sodium Chloride 90 meq/Potassium Chloride 15 meq/ Potassium Phosphate 18 mmol/ Magnesium Sulfate 8 meq/Calcium Gluconate 15 meq/ Multivitamins 10 ml/Chromium/ Copper/Manganese/ Seleni/Zn 0.5 ml/ Total Parenteral Nutrition/Amino Acids/Dextrose/ Fat Emulsion Intravenous 1,400 ml @ 58.333 mls/ hr TPN CONT IV Last administered on 07/13/19at 22:16; Start 07/13/19 at 22:00; Stop 07/14/19 at 21:59; Status DC Potassium Chloride 20 meq/ Bicarbonate Dialysis Soln w/ out KCl 5,010 ml @ 1,000 mls/hr Q5H1M IV Last administered on 07/17/19at 14:54; Start 07/13/19 at 16:00; Stop 07/17/19 at 19:59; Status DC Multi-Ingred Cream/Lotion/Oil/ Oint (Artificial Tears Eye Ointment) 1 ramu PRN Q1HR PRN OU DRY EYE, 2nd choice Last administered on 08/01/19at 08:19; Start 07/13/19 at 17:30; Stop 09/21/19 at 14:39; Status DC Sodium Chloride 90 meq/Potassium Chloride 15 meq/ Potassium Phosphate 18 mmol/ Magnesium Sulfate 8 meq/Calcium Gluconate 15 meq/ Multivitamins 10 ml/Chromium/ Copper/Manganese/ Seleni/Zn 0.5 ml/ Total Parenteral Nutrition/Amino Acids /Dextrose/ Fat Emulsion Intravenous 1,400 ml @ 58.333 mls/ hr TPN CONT IV Last administered on 07/14/19at 22:00; Start 07/14/19 at 22:00; Stop 07/15/19 at 21:59; Status DC Albumin Human 500 ml @ 125 mls/hr 1X ONCE IV ; Start 07/14/19 at 14:15; Stop 07/14/19 at 18:14; Status DC Sodium Chloride 90 meq/Potassium Chloride 15 meq/ Potassium Phosphate 18 mmol/ Magnesium Sulfate 8 meq/Calcium Gluconate 15 meq/ Multivitamins 10 ml/Chromium/ Copper/Manganese/ Seleni/Zn 0.5 ml/ Insulin Human Regular 10 unit/ Total Parenteral Nutrition/Amino Acids/Dextrose/ Fat Emulsion Intravenous 1,400 ml @ 58.333 mls/ hr TPN CONT IV Last administered on 07/15/19at 21:43; Start 07/15/19 at 22:00; Stop 07/16/19 at 21:59; Status DC Lidocaine HCl (Buffered Lidocaine 1%) 3 ml STK-MED ONCE .ROUTE ; Start 07/13/19 at 10:00; Stop 07/15/19 at 13:57; Status DC Midazolam HCl 100 mg/Sodium Chloride 100 ml @ 7 mls/hr CONT PRN IV SEE PROTOCOL Last administered on 07/27/19at 15:35; Start 07/16/19 at 16:00; Stop 09/21/19 at 14:38; Status DC Sodium Chloride 90 meq/Potassium Chloride 15 meq/ Potassium Phosphate 18 mmol/ Magnesium Sulfate 8 meq/Calcium Gluconate 15 meq/ Multivitamins 10 ml/Chromium/ Copper/Manganese/ Seleni/Zn 0.5 ml/ Insulin Human Regular 15 unit/ Total Parenteral Nutrition/Amino Acids/Dextrose/ Fat Emulsion Intravenous 1,400 ml @ 58.333 mls/ hr TPN CONT IV Last administered on 07/16/19at 20:34; Start 07/16/19 at 22:00; Stop 07/17/19 at 21:59; Status DC Info (Icu Electrolyte Protocol) 1 ea CONT PRN PRN MC PER PROTOCOL; Start 07/17/19 at 13:15 Sodium Chloride 90 meq/Potassium Chloride 15 meq/ Potassium Phosphate 18 mmol/ Magnesium Sulfate 8 meq/Calcium Gluconate 15 meq/ Multivitamins 10 ml/Chromium/ Copper/Manganese/ Seleni/Zn 0.5 ml/ Insulin Human Regular 15 unit/ Total Pare nteral Nutrition/Amino Acids/Dextrose/ Fat Emulsion Intravenous 1,400 ml @ 58.333 mls/ hr TPN CONT IV Last administered on 07/17/19at 22:05; Start 07/17/19 at 22:00; Stop 07/18/19 at 21:59; Status DC Potassium Chloride 15 meq/ Bicarbonate Dialysis Soln w/ out KCl 5,007.5 ml @ 1,000 mls/ hr Q5H1M IV Last administered on 07/20/19at 18:14; Start 07/17/19 at 20:00; Stop 07/21/19 at 13:08; Status DC Potassium Chloride 15 meq/ Bicarbonate Dialysis Soln w/ out KCl 5,007.5 ml @ 1,000 mls/ hr Q5H1M IV Last administered on 07/20/19at 18:14; Start 07/17/19 at 20:00; Stop 07/21/19 at 13:08; Status DC Potassium Chloride 15 meq/ Bicarbonate Dialysis Soln w/ out KCl 5,007.5 ml @ 1,000 mls/ hr Q5H1M IV Last administered on 07/20/19at 18:14; Start 07/17/19 at 20:00; Stop 07/21/19 at 13:08; Status DC Iohexol (Omnipaque 240 Mg/ml) 30 ml 1X ONCE PO Last administered on 07/18/19at 11:30; Start 07/18/19 at 11:30; Stop 07/18/19 at 11:33; Status DC Info (CONTRAST GIVEN -- Rx MONITORING) 1 each PRN DAILY PRN MC SEE COMMENTS; S tart 07/18/19 at 11:45; Stop 07/20/19 at 11:44; Status DC Sodium Chloride 90 meq/Potassium Chloride 15 meq/ Potassium Phosphate 18 mmol/ Magnesium Sulfate 8 meq/Calcium Gluconate 15 meq/ Multivitamins 10 ml/Chromium/ Copper/Manganese/ Seleni/Zn 0.5 ml/ Insulin Human Regular 15 unit/ Total Parenteral Nutrition/Amino Acids/Dextrose/ Fat Emulsion Intravenous 1,400 ml @ 58.333 mls/ hr TPN CONT IV Last administered on 07/18/19at 21:47; Start 07/18/19 at 22:00; Stop 07/19/19 at 21:59; Status DC Sodium Chloride 90 meq/Potassium Chloride 15 meq/ Potassium Phosphate 18 mmol/ Magnesium Sulfate 8 meq/Calcium Gluconate 15 meq/ Multivitamins 10 ml/Chromium/ Copper/Manganese/ Seleni/Zn 0.5 ml/ Insulin Human Regular 20 unit/ Total Parenteral Nutrition/Amino Acids/Dextrose/ Fat Emulsion Intravenous 1,400 ml @ 58.333 mls/ hr TPN CONT IV Last administered on 07/19/19at 21:36; Start 07/19/19 at 22:00; Stop 07/20/19 at 21:59; Status DC Alteplase, Recombinant (Cathflo For Central Catheter Clearance) 1 mg 1X ONCE INT CAT Last administered on 07/19/19at 20:03; Start 07/19/19 at 19:30; Stop 07/19/19 at 19:46; Status DC Alteplase, Recombinant (Cathflo For Central Catheter Clearance) 1 mg 1X ONCE INT CAT Last administered on 07/19/19at 22:05; Start 07/19/19 at 22:00; Stop 07/19/19 at 22:01; Status DC Sodium Chloride 90 meq/Potassium Chloride 15 meq/ Potassium Phosphate 18 mmol/ Magnesium Sulfate 8 meq/Calcium Gluconate 15 meq/ Multivitamins 10 ml/Chromium/ Copper/Manganese/ Seleni/Zn 0.5 ml/ Insulin Human Regular 20 unit/ Total Parenteral Nutrition/Amino Acids/Dextrose/ Fat Emulsion Intravenous 1,400 ml @ 58.333 mls/ hr TPN CONT IV Last administered on 07/20/19at 21:30; Start 07/20/19 at 22:00; Stop 07/21/19 at 21:59; Status DC Dexmedetomidine HCl 400 mcg/ Sodium Chloride 100 ml @ 0 mls/hr CONT PRN IV ANXIETY / AGITATION Last administered on 09/17/19at 12:57; Start 07/21/19 at 08:15; Stop 09/17/19 at 18:31; Status DC Sodium Chloride 500 ml @ 500 mls/hr 1X PRN PRN IV ELEVATED BP, SEE COMMENTS; Start 07/21/19 at 08:15 Atropine Sulfate (ATROPINE 0.5mg SYRINGE) 0.5 mg PRN Q5MIN PRN IV SEE COMMENTS; Start 07/21/19 at 08:15 Furosemide (Lasix) 20 mg 1X ONCE IVP Last administered on 07/21/19at 08:19; Start 07/21/19 at 08:15; Stop 07/21/19 at 08:16; Status DC Lidocaine HCl (Buffered Lidocaine 1%) 3 ml STK-MED ONCE .ROUTE ; Start 07/21/19 at 08:39; Stop 07/21/19 at 08:39; Status DC Lidocaine HCl (Buffered Lidocaine 1%) 6 ml 1X ONCE INJ Last administered on 07/21/19at 09:05; Start 07/21/19 at 09:00; Stop 07/21/19 at 09:06; Status DC Sodium Chloride 90 meq/Potassium Chloride 15 meq/ Potassium Phosphate 18 mmol/ Magnesium Sulfate 8 meq/Calcium Gluconate 15 meq/ Multivitamins 10 ml/Chromium/ Copper/Manganese/ Seleni/Zn 0.5 ml/ Insulin Human Regular 20 unit/ Total Parenteral Nutrition/Amino Acids/Dextrose/ Fat Emulsion Intravenous 1,400 ml @ 58.333 mls/ hr TPN CONT IV Last administered on 07/21/19at 22:45; Start 07/21/19 at 22:00; Stop 07/22/19 at 21:59; Status DC Sodium Chloride 1,000 ml @ 1,000 mls/hr Q1H PRN IV hypotension; Start 07/22/19 at 07:30; Stop 07/22/19 at 13:29; Status DC Albumin Human 200 ml @ 200 mls/hr 1X PRN PRN IV Hypotension Last administered on 07/22/19at 09:36; Start 07/22/19 at 07:30; Stop 07/22/19 at 13:29; Status DC Sodium Chloride (Normal Saline Flush) 10 ml 1X PRN PRN IV AP catheter pack; Start 07/22/19 at 07:30; Stop 07/22/19 at 21:29; Status DC Sodium Chloride (Normal Saline Flush) 10 ml 1X PRN PRN IV [employer]ER catheter pack; Start 07/22/19 at 07:30; Stop 07/23/19 at 07:29; Status DC Sodium Chloride 1,000 ml @ 400 mls/hr Q2H30M PRN IV PATENCY; Start 07/22/19 at 07:30; Stop 07/22/19 at 19:29; Status DC Info (PHARMACY MONITORING -- do not chart) 1 each PRN DAILY PRN MC SEE COMMENTS; Start 07/22/19 at 07:30; Stop 07/22/19 at 13:02; Status DC Info (PHARMACY MONITORING -- do not chart) 1 each PRN DAILY PRN MC SEE COMMENTS; Start 07/22/19 at 07:30; Stop 07/24/19 at 12:45; Status DC Sodium Chloride 90 meq/Potassium Chloride 15 meq/ Potassium Phosphate 10 mmol/ Magnesium Sulfate 8 meq/Calcium Gluconate 15 meq/ Multivitamins 10 ml/Chromium/ Copper/Manganese/ Seleni/Zn 0.5 ml/ Insulin Human Regular 25 unit/ Total Parenteral Nutrition/Amino Acids/Dextrose/ Fat Emulsion Intravenous 1,400 ml @ 58.333 mls/ hr TPN CONT IV Last administered on 07/22/19at 22:19; Start 07/22/19 at 22:00; Stop 07/23/19 at 21:59; Status DC Heparin Sodium (Porcine) (Heparin Sodium) 5,000 unit Q12HR SQ Last administered on 08/14/19at 08:59; Start 07/22/19 at 21:00; Stop 08/14/19 at 10:05; Status DC Ondansetron HCl (Zofran) 4 mg PRN Q6HRS PRN IV NAUSEA/VOMITING; Start 07/25/19 at 07:00; Stop 07/26/19 at 06:59; Status DC Fentanyl Citrate (Fentanyl 2ml Vial) 25 mcg PRN Q5MIN PRN IV MILD PAIN 1-3; Start 07/25/19 at 07:00; Stop 07/26/19 at 06:59; Status DC Fentanyl Citrate (Fentanyl 2ml Vial) 50 mcg PRN Q5MIN PRN IV MODERATE TO SEVERE PAIN; Start 07/25/19 at 07:00; Stop 07/26/19 at 06:59; Status DC Ringer's Solution 1,000 ml @ 30 mls/hr Q24H IV ; Start 07/25/19 at 07:00; Stop 07/25/19 at 18:59; Status DC Lidocaine HCl (Xylocaine-Mpf 1% 2ml Vial) 2 ml PRN 1X PRN ID PRIOR TO IV START; Start 07/25/19 at 07:00; Stop 07/26/19 at 06:59; Status DC Prochlorperazine Edisylate (Compazine) 5 mg PACU PRN PRN IV NAUSEA, MRX1; Start 07/25/19 at 07:00; Stop 07/26/19 at 06:59; Status DC Sodium Chloride 1,000 ml @ 1,000 mls/hr Q1H PRN IV hypotension; Start 07/23/19 at 09:10; Stop 07/23/19 at 15:09; Status DC Albumin Human 200 ml @ 200 mls/hr 1X PRN PRN IV Hypotension Last administered on 07/23/19at 10:10; Start 07/23/19 at 09:15; Stop 07/23/19 at 15:14; Status DC Sodium Chloride 1,000 ml @ 400 mls/hr Q2H30M PRN IV PATENCY; Start 07/23/19 at 09:10; Stop 07/23/19 at 21:09; Status DC Info (PHARMACY MONITORING -- do not chart) 1 each PRN DAILY PRN MC SEE COMMENTS; Start 07/23/19 at 09:15; Stop 07/24/19 at 12:45; Status DC Info (PHARMACY MONITORING -- do not chart) 1 each PRN DAILY PRN MC SEE COMMENTS; Start 07/23/19 at 09:15; Stop 07/24/19 at 12:45; Status DC Sodium Chloride 90 meq/Potassium Chloride 15 meq/ Potassium Phosphate 10 mmol/ Magnesium Sulfate 8 meq/Calcium Gluconate 15 meq/ Multivitamins 10 ml/Chromium/ Copper/Manganese/ Seleni/Zn 0.5 ml/ Insulin Human Regular 25 unit/ Total Parenteral Nutrition/Amino Acids/Dextrose/ Fat Emulsion Intravenous 1,400 ml @ 58.333 mls/ hr TPN CONT IV Last administered on 07/23/19at 22:10; Start 07/23/19 at 22:00; Stop 07/24/19 at 21:59; Status DC Magnesium Sulfate 50 ml @ 25 mls/hr PRN DAILY PRN IV for Mag < 1.7 on am labs Last administered on 10/06/19at 10:57; Start 07/24/19 at 09:15 Sodium Chloride 90 meq/Potassium Chloride 15 meq/ Potassium Phosphate 10 mmol/ Magnesium Sulfate 8 meq/Calcium Gluconate 15 meq/ Multivitamins 10 ml/Chromium/ Copper/Manganese/ Seleni/Zn 0.5 ml/ Insulin Human Regular 25 unit/ Total Parenteral Nutrition/Amino Acids/Dextrose/ Fat Emulsion Intravenous 1,400 ml @ 58.333 mls/ hr TPN CONT IV Last administered on 07/24/19at 21:20; Start 07/24/19 at 22:00; Stop 07/25/19 at 21:59; Status DC Sodium Chloride 1,000 ml @ 1,000 mls/hr Q1H PRN IV hypotension; Start 07/24/19 at 12:23; Stop 07/24/19 at 18:22; Status DC Albumin Human 200 ml @ 200 mls/hr 1X ONCE IV Last administered on 07/24/19at 13:34; Start 07/24/19 at 12:30; Stop 07/24/19 at 13:29; Status DC Diphenhydramine HCl (Benadryl) 25 mg 1X PRN PRN IV ITCHING; Start 07/24/19 at 12:30; Stop 07/25/19 at 12:29; Status DC Diphenhydramine HCl (Benadryl) 25 mg 1X PRN PRN IV ITCHING; Start 07/24/19 at 12:30; Stop 07/25/19 at 12:29; Status DC Info (PHARMACY MONITORING -- do not chart) 1 each PRN DAILY PRN MC SEE COMMENTS; Start 07/24/19 at 12:30; Status Cancel Bupivacaine HCl/ Epinephrine Bitart (Sensorcain-Epi 0.5%-1:[id number] Mpf) 30 ml STK-MED ONCE .ROUTE Last administered on 07/25/19at 11:44; Start 07/25/19 at 11:00; Stop 07/25/19 at 11:01; Status DC Cellulose (Surgicel Fibrillar 1x2) 1 each STK-MED ONCE .ROUTE ; Start 07/25/19 at 11:00; Stop 07/25/19 at 11:01; Status DC Sodium Chloride 90 meq/Potassium Chloride 15 meq/ Potassium Phosphate 10 mmol/ Magnesium Sulfate 12 meq/Calcium Gluconate 15 meq/ Multivitamins 10 ml/Chromium/ Copper/Manganese/ Seleni/Zn 0.5 ml/ Insulin Human Regular 25 unit/ Total Parenteral Nutrition/Amino Acids/Dextrose/ Fat Emulsion Intravenous 1,400 ml @ 58.333 mls/ hr TPN CONT IV Last administered on 07/25/19at 22:24; Start 07/25/19 at 22:00; Stop 07/26/19 at 21:59; Status DC Propofol 20 ml @ As Directed STK-MED ONCE IV ; Start 07/25/19 at 11:07; Stop 07/25/19 at 11:07; Status DC Cellulose (Surgicel Hemostat 4x8) 1 each STK-MED ONCE .ROUTE Last administered on 07/25/19at 11:44; Start 07/25/19 at 11:55; Stop 07/25/19 at 11:56; Status DC Sevoflurane (Ultane) 60 ml STK-MED ONCE IH ; Start 07/25/19 at 12:46; Stop 07/25/19 at 12:46; Status DC Sodium Chloride 1,000 ml @ 1,000 mls/hr Q1H PRN IV hypotension; Start 07/25/19 at 13:51; Stop 07/25/19 at 19:50; Status DC Albumin Human 200 ml @ 200 mls/hr 1X PRN PRN IV Hypotension Last administered on 07/25/19at 14:51; Start 07/25/19 at 14:00; Stop 07/25/19 at 19:59; Status DC Diphenhydramine HCl (Benadryl) 25 mg 1X PRN PRN IV ITCHING; Start 07/25/19 at 14:00; Stop 07/26/19 at 13:59; Status DC Diphenhydramine HCl (Benadryl) 25 mg 1X PRN PRN IV ITCHING; Start 07/25/19 at 14:00; Stop 07/26/19 at 13:59; Status DC Sodium Chloride 1,000 ml @ 400 mls/hr Q2H30M PRN IV PATENCY; Start 07/25/19 at 13:51; Stop 07/26/19 at 01:50; Status DC Info (PHARMACY MONITORING -- do not chart) 1 each PRN DAILY PRN MC SEE COMMENTS; Start 07/25/19 at 14:00; Stop 07/28/19 at 08:16; Status DC Heparin Sodium (Porcine) (Hep Lock Adult) 500 unit STK-MED ONCE IVP ; Start 07/26/19 at 09:29; Stop 07/26/19 at 09:30; Status DC Sodium Chloride 1,000 ml @ 1,000 mls/hr Q1H PRN IV hypotension; Start 07/26/19 at 10:43; Stop 07/26/19 at 16:42; Status DC Sodium Chloride 1,000 ml @ 400 mls/hr Q2H30M PRN IV PATENCY; Start 07/26/19 at 1 0:43; Stop 07/26/19 at 22:42; Status DC Info (PHARMACY MONITORING -- do not chart) 1 each PRN DAILY PRN MC SEE COMMENTS; Start 07/26/19 at 10:45; Status UNV Info (PHARMACY MONITORING -- do not chart) 1 each PRN DAILY PRN MC SEE COMMENTS; Start 07/26/19 at 10:45; Status UNV Sodium Chloride 90 meq/Potassium Chloride 15 meq/ Magnesium Sulfate 12 meq/Calcium Gluconate 15 meq/ Multivitamins 10 ml/Chromium/ Copper/Manganese/ Seleni/Zn 0.5 ml/ Insulin Human Regular 25 unit/ Total Parenteral Nutrition/Amino Acids/Dextrose/ Fat Emulsion Intravenous 1,400 ml @ 58.333 mls/ hr TPN CONT IV Last administered on 07/26/19at 22:13; Start 07/26/19 at 22:00; Stop 07/27/19 at 21:59; Status DC Sodium Chloride 1,000 ml @ 1,000 mls/hr Q1H PRN IV hypotension; Start 07/27/19 at 07:50; Stop 07/27/19 at 13:49; Status DC Albumin Human 200 ml @ 200 mls/hr 1X ONCE IV ; Start 07/27/19 at 08:00; Stop 07/27/19 at 08:53; Status DC Diphenhydramine HCl (Benadryl) 25 mg 1X PRN PRN IV ITCHING; Start 07/27/19 at 08:00; Stop 07/28/19 at 07:59; Status DC Diphenhydramine HCl (Benadryl) 25 mg 1X PRN PRN IV ITCHING; Start 07/27/19 at 08:00; Stop 07/28/19 at 07:59; Status DC Info (PHARMACY MONITORING -- do not chart) 1 each PRN DAILY PRN MC SEE COMMENTS; Start 07/27/19 at 08:00; Stop 07/28/19 at 08:16; Status DC Albumin Human 50 ml @ 50 mls/hr 1X ONCE IV ; Start 07/27/19 at 08:53; Stop 07/27/19 at 08:56; Status DC Albumin Human 200 ml @ 50 mls/hr PRN 1X PRN IV HYPOTENSION Last administered on 08/02/19at 11:54; Start 07/27/19 at 09:00; Stop 09/08/19 at 11:14; Status DC Meropenem 500 mg/ Sodium Chloride 50 ml @ 100 mls/hr Q12H IV Last administered on 08/16/19at 10:45; Start 07/27/19 at 10:00; Stop 08/16/19 at 12:37; Status DC Sodium Chloride 90 meq/Magnesium Sulfate 12 meq/ Calcium Gluconate 15 meq/ Mul tivitamins 10 ml/Chromium/ Copper/Manganese/ Seleni/Zn 0.5 ml/ Insulin Human Regular 25 unit/ Total Parenteral Nutrition/Amino Acids/Dextrose/ Fat Emulsion Intravenous 1,400 ml @ 58.333 mls/ hr TPN CONT IV Last administered on 07/27/19at 21:41; Start 07/27/19 at 22:00; Stop 07/28/19 at 21:59; Status DC Sodium Chloride 1,000 ml @ 1,000 mls/hr Q1H PRN IV hypotension; Start 07/28/19 a t 07:58; Stop 07/28/19 at 13:57; Status DC Albumin Human 200 ml @ 200 mls/hr 1X PRN PRN IV Hypotension Last administered on 07/28/19at 09:30; Start 07/28/19 at 08:00; Stop 07/28/19 at 13:59; Status DC Sodium Chloride 1,000 ml @ 400 mls/hr Q2H30M PRN IV PATENCY; Start 07/28/19 at 07:58; Stop 07/28/19 at 19:57; Status DC Info (PHARMACY MONITORING -- do not chart) 1 each PRN DAILY PRN MC SEE COMMENTS; Start 07/28/19 at 08:00; Status Cancel Info (PHARMACY MONITORING -- do not chart) 1 each PRN DAILY PRN MC SEE COMMENTS; Start 07/28/19 at 08:15; Status UNV Sodium Chloride 90 meq/Potassium Phosphate 5 mmol/ Magnesium Sulfate 12 meq/Calcium Gluconate 15 meq/ Multivitamins 10 ml/Chromium/ Copper/Manganese/ Seleni/Zn 0.5 ml/ Insulin Human Regular 30 unit/ Total Parenteral Nutrition/Amino Acids/Dextrose/ Fat Emulsion Intravenous 1,400 ml @ 58.333 mls/ hr TPN CONT IV Last administered on 07/28/19at 22:08; Start 07/28/19 at 22:00; Stop 07/29/19 at 21:59; Status DC Linezolid/Dextrose 300 ml @ 300 mls/hr Q12HR IV Last administered on 08/08/19at 20:40; Start 07/29/19 at 11:00; Stop 08/09/19 at 08:10; Status DC Sodium Chloride 90 meq/Potassium Phosphate 15 mmol/ Magnesium Sulfate 12 meq/Calcium Gluconate 15 meq/ Multivitamins 10 ml/Chromium/ Copper/Manganese/ Seleni/Zn 0.5 ml/ Insulin Human Regular 30 unit/ Total Parenteral Nutrition/Amino Acids/Dextrose/ Fat Emulsion Intravenous 1,400 ml @ 58.333 mls/ hr TPN CONT IV Last administered on 07/29/19at 21:49; Start 07/29/19 at 22:00; Stop 07/30/19 at 21:59; Status DC Sodium Chloride 90 meq/Potassium Phosphate 15 mmol/ Magnesium Sulfate 12 meq/Calcium Gluconate 15 meq/ Multivitamins 10 ml/Chromium/ Copper/Manganese/ Seleni/Zn 0.5 ml/ Insulin Human Regular 40 unit/ Total Parenteral Nutrition/Amino Acids/Dextrose/ Fat Emulsion Intravenous 1,400 ml @ 58.333 mls/ hr TPN CONT IV Last administered on 07/30/19at 21:21; Start 07/30/19 at 22:00; Stop 07/31/19 at 21:59; Status DC Sodium Chloride 1,000 ml @ 1,000 mls/hr Q1H PRN IV hypotension; Start 07/30/19 at 13:26; Stop 07/30/19 at 19:25; Status DC Albumin Human 200 ml @ 200 mls/hr 1X PRN PRN IV Hypotension Last administered on 07/30/19at 15:00; Start 07/30/19 at 13:30; Stop 07/30/19 at 19:29; Status DC Sodium Chloride (Normal Saline Flush) 10 ml 1X PRN PRN IV AP catheter pack; Start 07/30/19 at 13:30; Stop 07/31/19 at 13:29; Status DC Sodium Chloride (Normal Saline Flush) 10 ml 1X PRN PRN IV [employer] catheter pack; Start 07/30/19 at 13:30; Stop 07/31/19 at 13:29; Status DC Sodium Chloride 1,000 ml @ 400 mls/hr Q2H30M PRN IV PATENCY; Start 07/30/19 at 13:26; Stop 07/31/19 at 01:25; Status DC Info (PHARMACY MONITORING -- do not chart) 1 each PRN DAILY PRN MC SEE COMMENTS; Start 07/30/19 at 13:30; Stop 07/30/19 at 13:33; Status DC Info (PHARMACY MONITORING -- do not chart) 1 each PRN DAILY PRN MC SEE COMMENTS; Start 07/30/19 at 13:30; Stop 07/30/19 at 13:34; Status DC Sodium Chloride 90 meq/Potassium Phosphate 19 mmol/ Magnesium Sulfate 12 meq/Calcium Gluconate 15 meq/ Multivitamins 10 ml/Chromium/ Copper/Manganese/ Seleni/Zn 0.5 ml/ Insulin Human Regular 40 unit/ Total Parenteral Nutrition/Amino Acids/Dextrose/ Fat Emulsion Intravenous 1,400 ml @ 58.333 mls/ hr TPN CONT IV Last administered on 07/31/19at 21:54; Start 07/31/19 at 22:00; Stop 08/01/19 at 21:59; Status DC Sodium Chloride 1,000 ml @ 1,000 mls/hr Q1H PRN IV hypotension; Start 08/01/19 at 09:35; Stop 08/01/19 at 15:34; Status DC Albumin Human 200 ml @ 200 mls/hr 1X PRN PRN IV Hypotension; Start 08/01/19 at 09:45; Stop 08/01/19 at 15:44; Status DC Diphenhydramine HCl (Benadryl) 25 mg 1X PRN PRN IV ITCHING; Start 08/01/19 at 09:45; Stop 08/02/19 at 09:44; Status DC Diphenhydramine HCl (Benadryl) 25 mg 1X PRN PRN IV ITCHING; Start 08/01/19 at 09:45; Stop 08/02/19 at 09:44; Status DC Sodium Chloride 1,000 ml @ 400 mls/hr Q2H30M PRN IV PATENCY; Start 08/01/19 at 09:35; Stop 08/01/19 at 21:34; Status DC Info (PHARMACY MONITORING -- do not chart) 1 each PRN DAILY PRN MC SEE COMMENTS; Start 08/01/19 at 09:45; Status Cancel Sodium Chloride 100 meq/Potassium Phosphate 19 mmol/ Magnesium Sulfate 12 meq/Calcium Gluconate 15 meq/ Multivitamins 10 ml/Chromium/ Copper/Manganese/ Seleni/Zn 0.5 ml/ Insulin Human Regular 40 unit/ Potassium Chloride 20 meq/ Total Parenteral Nutrition/Amino Acids/Dextrose/ Fat Emulsion Intravenous 1,400 ml @ 58.333 mls/ hr TPN CONT IV Last administered on 08/01/19at 22:02; Start 08/01/19 at 22:00; Stop 08/02/19 at 21:59; Status DC Furosemide (Lasix) 40 mg 1X ONCE IVP Last administered on 08/01/19at 14:39; Start 08/01/19 at 14:30; Stop 08/01/19 at 14:31; Status DC Metronidazole 100 ml @ 100 mls/hr Q8HRS IV Last administered on 08/09/19at 06:04; Start 08/02/19 at 10:00; Stop 08/09/19 at 08:10; Status DC Sodium Chloride 1,000 ml @ 1,000 mls/hr Q1H PRN IV hypotension; Start 08/02/19 at 08:00; Stop 08/02/19 at 13:59; Status DC Albumin Human 200 ml @ 200 mls/hr 1X PRN PRN IV Hypotension; Start 08/02/19 at 08:00; Stop 08/02/19 at 13:59; Status DC Sodium Chloride 1,000 ml @ 400 mls/hr Q2H30M PRN IV PATENCY; Start 08/02/19 at 08:00; Stop 08/02/19 at 19:59; Status DC Info (PHARMACY MONITORING -- do not chart) 1 each PRN DAILY PRN MC SEE COMMENTS; Start 08/02/19 at 11:30; Status UNV Info (PHARMACY MONITORING -- do not chart) 1 each PRN DAILY PRN MC SEE COMMENTS; Start 08/02/19 at 11:30; Stop 08/04/19 at 12:13; Status DC Sodium Chloride 100 meq/Potassium Phosphate 19 mmol/ Magnesium Sulfate 12 meq/Calcium Gluconate 15 meq/ Multivitamins 10 ml/Chromium/ Copper/Manganese/ Seleni/Zn 0.5 ml/ Insulin Human Regular 40 unit/ Potassium Chloride 20 meq/ Total Parenteral Nutrition/Amino Acids/Dextrose/ Fat Emulsion Intravenous 1,400 ml @ 58.333 mls/ hr TPN CONT IV Last administered on 08/02/19at 21:52; Start 08/02/19 at 22:00; Stop 08/03/19 at 21:59; Status DC Sodium Chloride (Normal Saline Flush) 10 ml QSHIFT PRN IV AFTER MEDS AND BLOOD DRAWS; Start 08/02/19 at 15:00; Stop 08/30/19 at 11:27; Status DC Sodium Chloride (Normal Saline Flush) 10 ml PRN Q5MIN PRN IV AFTER MEDS AND BLOOD DRAWS; Start 08/02/19 at 15:00 Sodium Chloride (Normal Saline Flush) 20 ml PRN Q5MIN PRN IV AFTER MEDS AND BLOOD DRAWS; Start 08/02/19 at 15:00 Sodium Chloride 100 meq/Potassium Phosphate 19 mmol/ Magnesium Sulfate 12 meq/Calcium Gluconate 15 meq/ Multivitamins 10 ml/Chromium/ Copper/Manganese/ Seleni/Zn 0.5 ml/ Insulin Human Regular 40 unit/ Potassium Chloride 20 meq/ Total Parenteral Nutrition/Amino Acids/Dextrose/ Fat Emulsion Intravenous 1,400 ml @ 58.333 mls/ hr TPN CONT IV Last administered on 08/03/19at 21:20; Start 08/03/19 at 22:00; Stop 08/04/19 at 21:59; Status DC Lidocaine HCl (Buffered Lidocaine 1%) 3 ml STK-MED ONCE .ROUTE ; Start 08/03/19 at 13:16; Stop 08/03/19 at 13:16; Status DC Lidocaine HCl (Buffered Lidocaine 1%) 6 ml 1X ONCE INJ Last administered on 08/03/19at 13:45; Start 08/03/19 at 13:30; Stop 08/03/19 at 13:31; Status DC Albumin Human 100 ml @ 100 mls/hr 1X ONCE IV Last administered on 08/03/19at 15:41; Start 08/03/19 at 15:00; Stop 08/03/19 at 15:59; Status DC Albumin Human 50 ml @ 50 mls/hr 1X ONCE IV Last administered on 08/03/19at 15 :00; Start 08/03/19 at 15:00; Stop 08/03/19 at 15:59; Status DC Info (PHARMACY MONITORING -- do not chart) 1 each PRN DAILY PRN MC SEE COMMENTS; Start 08/04/19 at 11:30; Status Cancel Info (PHARMACY MONITORING -- do not chart) 1 each PRN DAILY PRN MC SEE COMMENTS; Start 08/04/19 at 11:30; Status UNV Sodium Chloride 100 meq/Potassium Phosphate 10 mmol/ Magnesium Sulfate 12 meq/ Calcium Gluconate 15 meq/ Multivitamins 10 ml/Chromium/ Copper/Manganese/ Seleni/Zn 0.5 ml/ Insulin Human Regular 35 unit/ Potassium Chloride 20 meq/ Total Parenteral Nutrition/Amino Acids/Dextrose/ Fat Emulsion Intravenous 1,400 ml @ 58.333 mls/ hr TPN CONT IV Last administered on 08/04/19at 22:10; Start 08/04/19 at 22:00; Stop 08/05/19 at 21:59; Status DC Sodium Chloride 100 meq/Potassium Phosphate 5 mmol/ Magnesium Sulfate 12 meq/Calcium Gluconate 15 meq/ Multivitamins 10 ml/Chromium/ Copper/Manganese/ Seleni/Zn 0.5 ml/ Insulin Human Regular 35 unit/ Potassium Chloride 20 meq/ Total Parenteral Nutrition/Amino Acids/Dextrose/ Fat Emulsion Intravenous 1,400 ml @ 58.333 mls/ hr TPN CONT IV Last administered on 08/05/19at 22:59; Start 08/05/19 at 22:00; Stop 08/06/19 at 21:59; Status DC Sodium Chloride 1,000 ml @ 1,000 mls/hr Q1H PRN IV hypotension; Start 08/06/19 at 08:27; Stop 08/06/19 at 14:26; Status DC Albumin Human 200 ml @ 200 mls/hr 1X PRN PRN IV Hypotension Last administered on 08/06/19at 09:18; Start 08/06/19 at 08:30; Stop 08/06/19 at 14:29; Status DC Sodium Chloride 1,000 ml @ 400 mls/hr Q2H30M PRN IV PATENCY; Start 08/06/19 at 08:27; Stop 08/06/19 at 20:26; Status DC Info (PHARMACY MONITORING -- do not chart) 1 each PRN DAILY PRN MC SEE COMMENTS; Start 08/06/19 at 08:30; Status Cancel Info (PHARMACY MONITORING -- do not chart) 1 each PRN DAILY PRN MC SEE COMM ENTS; Start 08/06/19 at 08:30; Stop 08/14/19 at 13:10; Status DC Sodium Chloride 100 meq/Potassium Chloride 40 meq/ Magnesium Sulfate 15 meq/Calcium Gluconate 15 meq/ Multivitamins 10 ml/Chromium/ Copper/Manganese/ Seleni/Zn 0.5 ml/ Insulin Human Regular 35 unit/ Total Parenteral Nutrition/Amino Acids/Dextrose/ Fat Emulsion Intravenous 1,400 ml @ 58.333 mls/ hr TPN CONT IV Last administered on 08/06/19at 22:00; Start 08/06/19 at 22:00; Stop 08/07/19 at 21:59; Status DC Potassium Chloride/Water 100 ml @ 100 mls/hr 1X ONCE IV Last administered on 08/06/19at 17:28; Start 08/06/19 at 14:45; Stop 08/06/19 at 15:44; Status DC Sodium Chloride 100 meq/Potassium Chloride 40 meq/ Magnesium Sulfate 15 meq/Calcium Gluconate 15 meq/ Multivitamins 10 ml/Chromium/ Copper/Manganese/ Seleni/Zn 0.5 ml/ Insulin Human Regular 35 unit/ Total Parenteral Nutrition/Amino Acids/Dextrose/ Fat Emulsion Intravenous 1,400 ml @ 58.333 mls/ hr TPN CONT IV Last administered on 08/07/19at 22:46; Start 08/07/19 at 22:00; Stop 08/08/19 at 21:59; Status DC Sodium Chloride 100 meq/Potassium Chloride 40 meq/ Magnesium Sulfate 20 meq/Calcium Gluconate 15 meq/ Multivitamins 10 ml/Chromium/ Copper/Manganese/ Seleni/Zn 0.5 ml/ Insulin Human Regular 35 unit/ Total Parenteral Nutrition/Amino Acids/Dextrose/ Fat Emulsion Intravenous 1,400 ml @ 58.333 mls/ hr TPN CONT IV Last administered on 08/08/19at 22:31; Start 08/08/19 at 22:00; Stop 08/09/19 at 21:59; Status DC Fentanyl Citrate (Fentanyl 2ml Vial) 50 mcg PRN Q2HR PRN IVP PAIN Last admin istered on 08/15/19at 13:32; Start 08/08/19 at 21:00; Stop 08/16/19 at 12:53; Status DC Fentanyl Citrate (Fentanyl 2ml Vial) 25 mcg PRN Q2HR PRN IVP PAIN; Start 08/08/19 at 21:00; Stop 08/16/19 at 12:54; Status DC Enoxaparin Sodium (Lovenox 100mg Syringe) 100 mg Q12HR SQ ; Start 08/09/19 at 21:00; Status UNV Amino Acids/ Glycerin/ Electrolytes 1,000 ml @ 75 mls/hr [id number] IV ; Start 08/08/19 at 21:15; Status UNV Sodium Chloride 1,000 ml @ 1,000 mls/hr Q1H PRN IV hypotension; Start 08/09/19 at 07:56; Stop 08/09/19 at 13:55; Status DC Albumin Human 200 ml @ 200 mls/hr 1X PRN PRN IV Hypotension Last administered on 08/09/19at 08:40; Start 08/09/19 at 08:00; Stop 08/09/19 at 13:59; Status DC Sodium Chloride 1,000 ml @ 400 mls/hr Q2H30M PRN IV PATENCY; Start 08/09/19 at 07:56; Stop 08/09/19 at 19:55; Status DC Info (PHARMACY MONITORING -- do not chart) 1 each PRN DAILY PRN MC SEE COMMENTS; Start 08/09/19 at 08:00; Status UNV Info (PHARMACY MONITORING -- do not chart) 1 each PRN DAILY PRN MC SEE COMMPaola NTS; Start 08/09/19 at 08:00; Status UNV Daptomycin 430 mg/ Sodium Chloride 50 ml @ 100 mls/hr Q24H IV Last administered on 08/09/19at 12:35; Start 08/09/19 at 09:00; Stop 08/09/19 at 12:49; Status DC Sodium Chloride 100 meq/Potassium Chloride 40 meq/ Magnesium Sulfate 20 meq/Calcium Gluconate 15 meq/ Multivitamins 10 ml/Chromium/ Copper/Manganese/ Seleni/Zn 0.5 ml/ Insulin Human Regular 35 unit/ Total Parenteral Nutrition/Amino Acids/Dextrose/ Fat Emulsion Intravenous 1,400 ml @ 58.333 mls/ hr TPN CONT IV Last administered on 08/09/19at 21:26; Start 08/09/19 at 22:00; Stop 08/10/19 at 21:59; Status DC Daptomycin 430 mg/ Sodium Chloride 50 ml @ 100 mls/hr Q48H IV ; Start 08/11/19 at 09:00; Stop 08/10/19 at 11:55; Status DC Sodium Chloride 100 meq/Potassium Chloride 40 meq/ Magnesium Sulfate 20 meq/Calcium Gluconate 15 meq/ Multivitamins 10 ml/Chromium/ Copper/Manganese/ Seleni/Zn 0.5 ml/ Insulin Human Regular 35 unit/ Total Parenteral Nutrition/Amino Acids/Dextrose/ Fat Emulsion Intravenous 1,400 ml @ 58.333 mls/ hr TPN CONT IV Last administered on 08/10/19at 22:27; Start 08/10/19 at 22:00; Stop 08/11/19 at 21:59; Status DC Daptomycin 430 mg/ Sodium Chloride 50 ml @ 100 mls/hr Q24H IV Last administered on 08/12/19at 15:07; Start 08/10/19 at 13:00; Stop 08/13/19 at 13:15; Status DC Sodium Chloride 100 meq/Potassium Chloride 40 meq/ Magnesium Sulfate 20 meq/Calcium Gluconate 10 meq/ Multivitamins 10 ml/Chromium/ Copper/Manganese/ Seleni/Zn 0.5 ml/ Insulin Human Regular 35 unit/ Total Parenteral Nutri tion/Amino Acids/Dextrose/ Fat Emulsion Intravenous 1,400 ml @ 58.333 mls/ hr TPN CONT IV Last administered on 08/12/19at 00:06; Start 08/11/19 at 22:00; Stop 08/12/19 at 21:59; Status DC Alteplase, Recombinant (Cathflo For Central Catheter Clearance) 1 mg 1X ONCE INT CAT Last administered on 08/12/19at 11:44; Start 08/12/19 at 10:45; Stop 08/12/19 at 10:46; Status DC Ondansetron HCl (Zofran) 4 mg PRN Q6HRS PRN IV NAUSEA/VOMITING; Start 08/15/19 at 07:00; Stop 08/16/19 at 06:59; Status DC Fentanyl Citrate (Fentanyl 2ml Vial) 25 mcg PRN Q5MIN PRN IV MILD PAIN 1-3; Start 08/15/19 at 07:00; Stop 08/16/19 at 06:59; Status DC Fentanyl Citrate (Fentanyl 2ml Vial) 50 mcg PRN Q5MIN PRN IV MODERATE TO SEVERE PAIN Last administered on 08/15/19at 10:17; Start 08/15/19 at 07:00; Stop 08/16/19 at 06:59; Status DC Ringer's Solution 1,000 ml @ 30 mls/hr Q24H IV ; Start 08/15/19 at 07:00; Stop 08/15/19 at 18:59; Status DC Lidocaine HCl (Xylocaine-Mpf 1% 2ml Vial) 2 ml PRN 1X PRN ID PRIOR TO IV START; Start 08/15/19 at 07:00; Stop 08/16/19 at 06:59; Status DC Prochlorperazine Edisylate (Compazine) 5 mg PACU PRN PRN IV NAUSEA, MRX1; Sta rt 08/15/19 at 07:00; Stop 08/16/19 at 06:59; Status DC Sodium Acetate 50 meq/Potassium Acetate 55 meq/ Magnesium Sulfate 20 meq/Calcium Gluconate 10 meq/ Multivitamins 10 ml/Chromium/ Copper/Manganese/ Seleni/Zn 0.5 ml/ Insulin Human Regular 35 unit/ Total Parenteral Nutrition/Amino Acids/Dextrose/ Fat Emulsion Intravenous 1,400 ml @ 58.333 mls/ hr TPN CONT IV ; Start 08/12/19 at 22:00; Stop 08/12/19 at 14:15; Status DC Sodium Acetate 50 meq/Potassium Acetate 55 meq/ Magnesium Sulfate 20 meq/Calcium Gluconate 10 meq/ Multivitamins 10 ml/Chromium/ Copper/Manganese/ Seleni/Zn 0.5 ml/ Insulin Human Regular 35 unit/ Total Parenteral Nutrition/Amino Acids/Dextrose/ Fat Emulsion Intravenous 1,800 ml @ 75 mls/hr TPN CONT IV Last administered on 08/12/19at 22:38; Start 08/12/19 at 22:00; Stop 08/13/19 at 21:59; Status DC Sodium Chloride 1,000 ml @ 1,000 mls/hr Q1H PRN IV hypotension; Start 08/12/19 at 15:31; Stop 08/12/19 at 21:30; Status DC Diphenhydramine HCl (Benadryl) 25 mg 1X PRN PRN IV ITCHING; Start 08/12/19 at 15:45; Stop 08/13/19 at 15:44; Status DC Diphenhydramine HCl (Benadryl) 25 mg 1X PRN PRN IV ITCHING; Start 08/12/19 at 15:45; Stop 08/13/19 at 15:44; Status DC Sodium Chloride 1,000 ml @ 400 mls/hr Q2H30M PRN IV PATENCY; Start 08/12/19 at 15:31; Stop 08/13/19 at 03:30; Status DC Info (PHARMACY MONITORING -- do not chart) 1 each PRN DAILY PRN MC SEE COMMENTS; Start 08/12/19 at 15:45; Stop 09/13/19 at 14:14; Status DC Sodium Acetate 50 meq/Potassium Acetate 55 meq/ Magnesium Sulfate 20 meq/Calcium Gluconate 10 meq/ Multivitamins 10 ml/Chromium/ Copper/Manganese/ Seleni/Zn 0.5 ml/ Insulin Human Regular 35 unit/ Total Parenteral Nutrition/Amino Acids/Dextrose/ Fat Emulsion Intravenous 1,800 ml @ 75 mls/hr TPN CONT IV Last administered on 08/13/19at 22:03; Start 08/13/19 at 22:00; Stop 08/14/19 at 21:59; Status DC Daptomycin 430 mg/ Sodium Chloride 50 ml @ 100 mls/hr Q24H IV Last administered on 08/18/19at 13:00; Start 08/13/19 at 13:00; Stop 08/18/19 at 20:58; Status DC Heparin Sodium (Porcine) 1000 unit/Sodium Chloride 1,001 ml @ 1,001 mls/hr 1X ONCE IRR ; Start 08/15/19 at 06:00; Stop 08/15/19 at 06:59; Status DC Potassium Acetate 55 meq/Magnesium Sulfate 20 meq/ Calcium Gluconate 10 meq/ Multivitamins 10 ml/Chromium/ Copper/Manganese/ Seleni/Zn 0.5 ml/ Insulin Human Regular 35 unit/ Total Parenteral Nutrition/Amino Acids/Dextrose/ Fat Emulsion Intravenous 1,920 ml @ 80 mls/hr TPN CONT IV Last administered on 08/14/19at 22:10; Start 08/14/19 at 22:00; Stop 08/15/19 at 21:59; Status DC Dexamethasone Sodium Phosphate (Decadron) 4 mg STK-MED ONCE .ROUTE ; Start 08/15/19 at 10:56; Stop 08/15/19 at 10:57; Status DC Ondansetron HCl (Zofran) 4 mg STK-MED ONCE .ROUTE ; Start 08/15/19 at 10:56; Stop 08/15/19 at 10:57; Status DC Rocuronium [place] (Zemuron) 50 mg STK-MED ONCE .ROUTE ; Start 08/15/19 at 10:56; Stop 08/15/19 at 10:57; Status DC Fentanyl Citrate (Fentanyl 2ml Vial) 100 mcg STK-MED ONCE .ROUTE ; Start 08/15/19 at 10:56; Stop 08/15/19 at 10:57; Status DC Bupivacaine HCl/ Epinephrine Bitart (Sensorcain-Epi 0.5%-1:409966 Mpf) 30 ml STK-MED ONCE .ROUTE Last administered on 08/15/19at 12:01; Start 08/15/19 at 10:58; Stop 08/15/19 at 10:58; Status DC Cellulose (Surgicel Hemostat 2x14) 1 each STK-MED ONCE .ROUTE ; Start 08/15/19 at 10:58; Stop 08/15/19 at 10:59; Status DC Iohexol (Omnipaque 300 Mg/ml) 50 ml STK-MED ONCE .ROUTE ; Start 08/15/19 at 10:58; Stop 08/15/19 at 10:59; Status DC Cellulose (Surgicel Hemostat 4x8) 1 each STK-MED ONCE .ROUTE ; Start 08/15/19 at 10:58; Stop 08/15/19 at 10:59; Status DC Bisacodyl (Dulcolax Supp) 10 mg STK-MED ONCE .ROUTE ; Start 08/15/19 at 10:59; Stop 08/15/19 at 10:59; Status DC Heparin Sodium (Porcine) 1000 unit/Sodium Chloride 1,001 ml @ 1,001 mls/hr 1X ONCE IRR ; Start 08/15/19 at 12:00; Stop 08/15/19 at 12:59; Status DC Propofol 20 ml @ As Directed STK-MED ONCE IV ; Start 08/15/19 at 11:05; Stop 08/15/19 at 11:05; Status DC Sevoflurane (Ultane) 90 ml STK-MED ONCE IH ; Start 08/15/19 at 11:05; Stop 08/15/19 at 11:05; Status DC Sevoflurane (Ultane) 60 ml STK-MED ONCE IH ; Start 08/15/19 at 12:26; Stop 08/15/19 at 12:27; Status DC Propofol 20 ml @ As Directed STK-MED ONCE IV ; Start 08/15/19 at 12:26; Stop 08/15/19 at 12:27; Status DC Phenylephrine HCl (PHENYLEPHRINE in 0.9% NACL PF) 1 mg STK-MED ONCE IV ; Start 08/15/19 at 12:34; Stop 08/15/19 at 12:34; Status DC Heparin Sodium (Porcine) (Heparin Sodium) 5,000 unit Q12HR SQ Last administered on 08/24/19at 20:57; Start 08/15/19 at 21:00; Stop 08/25/19 at 09:59; Status DC Sodium Chloride (Normal Saline Flush) 3 ml QSHIFT PRN IV AFTER MEDS AND BLOOD DRAWS; Start 08/15/19 at 13:45; Status Cancel Naloxone HCl (Narcan) 0.4 mg PRN Q2MIN PRN IV SEE INSTRUCTIONS Last administered on 09/24/19at 15:15; Start 08/15/19 at 13:45; Stop 10/19/19 at 16:00; Status DC Sodium Chloride 1,000 ml @ 25 mls/hr Q24H IV Last administered on 09/13/19at 13:37; Start 08/15/19 at 13:37; Stop 09/16/19 at 13:09; Status DC Naloxone HCl (Narcan) 0.4 mg PRN Q2MIN PRN IV SEE INSTRUCTIONS; Start 08/15/19 at 14:30; Status UNV Sodium Chloride 1,000 ml @ 25 mls/hr Q24H IV ; Start 08/15/19 at 14:30; Status UNV Hydromorphone HCl 30 ml @ 0 mls/hr CONT PRN PRN IV PER PROTOCOL Last administered on 08/20/19at 16:08; Start 08/15/19 at 14:30; Stop 08/22/19 at 08:55; Status DC Potassium Acetate 55 meq/Magnesium Sulfate 20 meq/ Calcium Gluconate 10 meq/ Multivitamins 10 ml/Chromium/ Copper/Manganese/ Seleni/Zn 0.5 ml/ Insulin Human Regular 35 unit/ Total Parenteral Nutrition/Amino Acids/Dextrose/ Fat Emulsion Intravenous 1,920 ml @ 80 mls/hr TPN CONT IV Last administered on 08/15/19at 22:01; Start 08/15/19 at 22:00; Stop 08/16/19 at 21:59; Status DC Bumetanide (Bumex) 2 mg [id number] IV Last administered on 08/19/19at 13:50; Start 08/16/19 at 14:00; Stop 08/20/19 at 14:10; Status DC Meropenem 1 gm/ Sodium Chloride 100 ml @ 200 mls/hr Q8HRS IV Last administered on 09/09/19at 05:53; Start 08/16/19 at 14:00; Stop 09/09/19 at 09:31; Status DC Potassium Acetate 55 meq/Magnesium Sulfate 20 meq/ Calcium Gluconate 10 meq/ Multivitamins 10 ml/Chromium/ Copper/Manganese/ Seleni/Zn 0.5 ml/ Insulin Human Regular 35 unit/ Total Parenteral Nutrition/Amino Acids/Dextrose/ Fat Emulsion Intravenous 1,920 ml @ 80 mls/hr TPN CONT IV Last administered on 08/16/19at 22:02; Start 08/16/19 at 22:00; Stop 08/17/19 at 21:59; Status DC Hydromorphone HCl (Dilaudid Standard HEELER) 12 mg STK-MED ONCE IV ; Start 08/15/19 at 14:35; Stop 08/16/19 at 13:53; Status DC Artificial Tears (Artificial Tears) 1 drop PRN Q15MIN PRN OU DRY EYE Last administered on 10/11/19at 21:17; Start 08/17/19 at 05:30 Hydromorphone HCl (Dilaudid Standard HEELER) 12 mg STK-MED ONCE IV ; Start 08/16/19 at 12:05; Stop 08/17/19 at 09:15; Status DC Potassium Acetate 65 meq/Magnesium Sulfate 20 meq/ Calcium Gluconate 10 meq/ Multivitamins 10 ml/Chromium/ Copper/Manganese/ Seleni/Zn 0.5 ml/ Insulin Human Regular 30 unit/ Total Parenteral Nutrition/Amino Acids/Dextrose/ Fat Emulsion Intravenous 1,920 ml @ 80 mls/hr TPN CONT IV Last administered on 08/17/19at 22:22; Start 08/17/19 at 22:00; Stop 08/18/19 at 21:59; Status DC Cyclobenzaprine HCl (Flexeril) 10 mg PRN Q6HRS PRN PO MUSCLE SPASMS Last administered on 10/28/19at 19:12; Start 08/18/19 at 10:45 Potassium Acetate 55 meq/Magnesium Sulfate 20 meq/ Calcium Gluconate 10 meq/ Multivitamins 10 ml/Chromium/ Copper/Manganese/ Seleni/Zn 0.5 ml/ Insulin Human Regular 30 unit/ Total Parenteral Nutrition/Amino Acids/Dextrose/ Fat Emulsion Intravenous 1,920 ml @ 80 mls/hr TPN CONT IV Last administered on 08/19/19at 01:00; Start 08/18/19 at 22:00; Stop 08/19/19 at 21:59; Status DC Magnesium Sulfate 50 ml @ 25 mls/hr 1X ONCE IV Last administered on 08/18/19at 17:18; Start 08/18/19 at 12:45; Stop 08/18/19 at 14:44; Status DC Potassium Chloride/Water 100 ml @ 100 mls/hr 1X ONCE IV Last administered on 08/19/19at 11:27; Start 08/19/19 at 12:00; Stop 08/19/19 at 12:59; Status DC Hydromorphone HCl (Dilaudid Standard HEELER) 12 mg STK-MED ONCE IV ; Start 08/17/19 at 10:50; Stop 08/19/19 at 11:02; Status DC Hydromorphone HCl (Dilaudid Standard HEELER) 12 mg STK-MED ONCE IV ; Start 08/18/19 at 13:47; Stop 08/19/19 at 11:03; Status DC Potassium Acetate 30 meq/Magnesium Sulfate 20 meq/ Calcium Gluconate 10 meq/ Multivitamins 10 ml/Chromium/ Copper/Manganese/ Seleni/Zn 0.5 ml/ Insulin Human Regular 30 unit/ Potassium Chloride 30 meq/ Total Parenteral Nutrition/Amino Acids/Dextrose/ Fat Emulsion Intravenous 1,920 ml @ 80 mls/hr TPN CONT IV Last administered on 08/19/19at 22:34; Start 08/19/19 at 22:00; Stop 08/20/19 at 21:59; Status DC Potassium Chloride/Water 100 ml @ 100 mls/hr Q1H IV Last administered on 08/20/19at 13:05; Start 08/20/19 at 07:00; Stop 08/20/19 at 10:59; Status DC Magnesium Sulfate 50 ml @ 25 mls/hr 1X ONCE IV Last administered on 08/20/19at 10:34; Start 08/20/19 at 10:30; Stop 08/20/19 at 12:29; Status DC Potassium Chloride 75 meq/ Magnesium Sulfate 20 meq/Calcium Gluconate 10 meq/ Multivitamins 10 ml/Chromium/ Copper/Manganese/ Seleni/Zn 0.5 ml/ Insulin Human Regular 30 unit/ Total Parenteral Nutrition/Amino Acids/Dextrose/ Fat Emulsion Intravenous 1,920 ml @ 80 mls/hr TPN CONT IV Last administered on 08/20/19at 21:51; Start 08/20/19 at 22:00; Stop 08/21/19 at 22:00; Status DC Potassium Chloride 75 meq/ Magnesium Sulfate 20 meq/Calcium Gluconate 10 meq/ Multivitamins 10 ml/Chromium/ Copper/Manganese/ Seleni/Zn 0.5 ml/ Insulin Human Regular 25 unit/ Total Parenteral Nutrition/Amino Acids/Dextrose/ Fat Emulsion Intravenous 1,920 ml @ 80 mls/hr TPN CONT IV Last administered on 08/21/19at 22:04; Start 08/21/19 at 22:00; Stop 08/22/19 at 21:59; Status DC Hydromorphone HCl (Dilaudid) 0.4 mg PRN Q4HRS PRN IVP PAIN Last administered on 08/22/19at 10:57; Start 08/22/19 at 09:00; Stop 08/22/19 at 18:59; Status DC Micafungin Sodium 100 mg/Dextrose 100 ml @ 100 mls/hr Q24H IV Last administered on 09/13/19at 12:17; Start 08/22/19 at 11:00; Stop 09/14/19 at 09:59; Status DC Daptomycin 485 mg/ Sodium Chloride 50 ml @ 100 mls/hr Q24H IV Last administered on 08/29/19at 13:10; Start 08/22/19 at 11:00; Stop 08/30/19 at 07:44; Status DC Potassium Chloride 75 meq/ Magnesium Sulfate 15 meq/Calcium Gluconate 8 meq/ Multivitamins 10 ml/Chromium/ Copper/Manganese/ Seleni/Zn 0.5 ml/ Insulin Human Regular 25 unit/ Total Parenteral Nutrition/Amino Acids/Dextrose/ Fat Emulsion Intravenous 1,920 ml @ 80 mls/hr TPN CONT IV Last administered on 08/22/19at 23:08; Start 08/22/19 at 22:00; Stop 08/23/19 at 21:59; Status DC Haloperidol Lactate (Haldol Inj) 3 mg 1X ONCE IVP Last administered on 08/22/19at 14:37; Start 08/22/19 at 14:30; Stop 08/22/19 at 14:31; Status DC Hydromorphone HCl (Dilaudid) 1 mg PRN Q4HRS PRN IVP PAIN Last administered on 09/05/19at 06:25; Start 08/22/19 at 19:00; Stop 09/05/19 at 17:10; Status DC Potassium Chloride 75 meq/ Magnesium Sulfate 15 meq/Calcium Gluconate 8 meq/ Multivitamins 10 ml/Chromium/ Copper/Manganese/ Seleni/Zn 0.5 ml/ Insulin Human Regular 20 unit/ Total Parenteral Nutrition/Amino Acids/Dextrose/ Fat Emulsion Intravenous 1,920 ml @ 80 mls/hr TPN CONT IV Last administered on 08/23/19at 22:10; Start 08/23/19 at 22:00; Stop 08/24/19 at 21:59; Status DC Lidocaine HCl (Buffered Lidocaine 1%) 3 ml STK-MED ONCE .ROUTE ; Start 08/24/19 at 11:31; Stop 08/24/19 at 11:31; Status DC Lidocaine HCl (Buffered Lidocaine 1%) 3 ml STK-MED ONCE .ROUTE ; Start 08/24/19 at 12:28; Stop 08/24/19 at 12:29; Status DC Lidocaine HCl (Buffered Lidocaine 1%) 6 ml 1X ONCE INJ Last administered on 08/24/19at 12:53; Start 08/24/19 at 12:45; Stop 08/24/19 at 12:46; Status DC Potassium Chloride 75 meq/ Magnesium Sulfate 15 meq/Calcium Gluconate 8 meq/ Multivitamins 10 ml/Chromium/ Copper/Manganese/ Seleni/Zn 0.5 ml/ Insulin Human Regular 20 unit/ Total Parenteral Nutrition/Amino Acids/Dextrose/ Fat Emulsion Intravenous 1,920 ml @ 80 mls/hr TPN CONT IV Last administered on 08/24/19at 22:00; Start 08/24/19 at 22:00; Stop 08/25/19 at 21:59; Status DC Potassium Chloride 75 meq/ Magnesium Sulfate 15 meq/Calcium Gluconate 8 meq/ Multivitamins 10 ml/Chromium/ Copper/Manganese/ Seleni/Zn 0.5 ml/ Insulin Human Regular 15 unit/ Total Parenteral Nutrition/Amino Acids/Dextrose/ Fat Emulsion Intravenous 1,920 ml @ 80 mls/hr TPN CONT IV Last administered on 08/25/19at 22:28; Start 08/25/19 at 22:00; Stop 08/26/19 at 21:59; Status DC Vecuronium [place] (Norcuron Bolus) 6 mg PRN Q6HRS PRN IV VENT ASYNCHRONY; Start 08/25/19 at 19:15; Stop 08/25/19 at 19:35; Status DC Bumetanide (Bumex) 2 mg 1X ONCE IV Last administered on 08/25/19at 22:09; Start 08/25/19 at 19:45; Stop 08/25/19 at 19:46; Status DC Lidocaine HCl (Buffered Lidocaine 1%) 3 ml STK-MED ONCE .ROUTE ; Start 08/26/19 at 07:59; Stop 08/26/19 at 07:59; Status DC Midazolam HCl (Versed) 5 mg STK-MED ONCE .ROUTE ; Start 08/26/19 at 08:36; Stop 08/26/19 at 08:36; Status DC Fentanyl Citrate (Fentanyl 5ml Vial) 250 mcg STK-MED ONCE .ROUTE ; Start 08/26/19 at 08:36; Stop 08/26/19 at 08:37; Status DC Lidocaine HCl (Buffered Lidocaine 1%) 3 ml 1X ONCE IJ Last administered on 08/26/19at 09:30; Start 08/26/19 at 09:15; Stop 08/26/19 at 09:16; Status DC Midazolam HCl (Versed) 5 mg 1X ONCE IV Last administered on 08/26/19at 09:30; Start 08/26/19 at 09:15; Stop 08/26/19 at 09:16; Status DC Fentanyl Citrate (Fentanyl 5ml Vial) 250 mcg 1X ONCE IV Last administered on 08/26/19at 09:30; Start 08/26/19 at 09:15; Stop 08/26/19 at 09:16; Status DC Bumetanide (Bumex) 2 mg DAILY IV Last administered on 09/05/19at 08:07; Start 08/26/19 at 10:00; Stop 09/05/19 at 17:15; Status DC Potassium Chloride 75 meq/ Magnesium Sulfate 15 meq/ Multivitamins 10 ml/Chromium/ Copper/Manganese/ Seleni/Zn 0.5 ml/ Insulin Human Regular 15 unit/ Total Parenteral Nutrition/Amino Acids/Dextrose/ Fat Emulsion Intravenous 1,920 ml @ 80 mls/hr TPN CONT IV Last administered on 08/26/19at 21:59; Start 08/26/19 at 22:00; Stop 08/27/19 at 21:59; Status DC Metoclopramide HCl (Reglan Vial) 10 mg PRN Q3HRS PRN IVP NAUSEA/VOMITING-3rd choice Last administered on 09/01/19at 04:25; Start 08/27/19 at 16:45 Potassium Chloride 75 meq/ Magnesium Sulfate 15 meq/ Multivitamins 10 ml/Chromium/ Copper/Manganese/ Seleni/Zn 0.5 ml/ Insulin Human Regular 15 unit/ Total Parenteral Nutrition/Amino Acids/Dextrose/ Fat Emulsion Intravenous 1,920 ml @ 80 mls/hr TPN CONT IV Last administered on 08/27/19at 22:41; Start 08/27/19 at 22:00; Stop 08/28/19 at 21:59; Status DC Magnesium Sulfate 50 ml @ 25 mls/hr 1X ONCE IV Last administered on 08/28/19at 10:44; Start 08/28/19 at 09:00; Stop 08/28/19 at 10:59; Status DC Potassium Chloride/Water 100 ml @ 100 mls/hr 1X ONCE IV Last administered on 08/28/19at 09:37; Start 08/28/19 at 09:00; Stop 08/28/19 at 09:59; Status DC Duloxetine HCl (Cymbalta) 30 mg DAILY PO Last administered on 08/29/19at 09:48; Start 08/28/19 at 14:00; Stop 08/31/19 at 10:25; Status DC Potassium Chloride 80 meq/ Magnesium Sulfate 20 meq/ Multivitamins 10 ml/Chromi um/ Copper/Manganese/ Seleni/Zn 0.5 ml/ Insulin Human Regular 15 unit/ Total Parenteral Nutrition/Amino Acids/Dextrose/ Fat Emulsion Intravenous 1,920 ml @ 80 mls/hr TPN CONT IV Last administered on 08/28/19at 21:42; Start 08/28/19 at 22:00; Stop 08/29/19 at 21:59; Status DC Potassium Chloride 80 meq/ Magnesium Sulfate 20 meq/ Multivitamins 10 ml/Chromium/ Copper/Manganese/ Seleni/Zn 0.5 ml/ Insulin Human Regular 15 unit/ Total Parenteral Nutrition/Amino Acids/Dextrose/ Fat Emulsion Intravenous 1,920 ml @ 80 mls/hr TPN CONT IV Last administered on 08/29/19at 22:20; Start 08/29/19 at 22:00; Stop 08/30/19 at 21:59; Status DC Lidocaine HCl (Buffered Lidocaine 1%) 3 ml STK-MED ONCE .ROUTE ; Start 08/30/19 at 09:54; Stop 08/30/19 at 09:55; Status DC Hydromorphone HCl (Dilaudid Standard HEELER) 12 mg STK-MED ONCE IV ; Start 08/19/19 at 15:50; Stop 08/30/19 at 11:24; Status DC Potassium Chloride 80 meq/ Magnesium Sulfate 20 meq/ Multivitamins 10 ml/Chromium/ Copper/Manganese/ Seleni/Zn 0.5 ml/ Insulin Human Regular 15 unit/ Total Parenteral Nutrition/Amino Acids/Dextrose/ Fat Emulsion Intravenous 1,920 ml @ 80 mls/hr TPN CONT IV Last administered on 08/30/19at 21:40; Start 08/30/19 at 22:00; Stop 08/31/19 at 21:59; Status DC Lidocaine HCl (Buffered Lidocaine 1%) 6 ml 1X ONCE INJ Last administered on 08/30/19at 14:15; Start 08/30/19 at 14:15; Stop 08/30/19 at 14:16; Status DC Potassium Chloride 80 meq/ Magnesium Sulfate 20 meq/ Multivitamins 10 ml/Chromium/ Copper/Manganese/ Seleni/Zn 1 ml/ Insulin Human Regular 15 unit/ Total Parenteral Nutrition/Amino Acids/Dextrose/ Fat Emulsion Intravenous 1,920 ml @ 80 mls/hr TPN CONT IV Last administered on 08/31/19at 22:04; Start 08/31/19 at 22:00; Stop 09/01/19 at 21:59; Status DC Potassium Chloride/Water 100 ml @ 100 mls/hr 1X ONCE IV Last administered on 09/01/19at 11:34; Start 09/01/19 at 11:00; Stop 09/01/19 at 11:59; Status DC Potassium Chloride 90 meq/ Magnesium Sulfate 20 meq/ Multivitamins 10 ml/Chromium/ Copper/Manganese/ Seleni/Zn 1 ml/ Insulin Human Regular 15 unit/ Total Parenteral Nutrition/Amino Acids/Dextrose/ Fat Emulsion Intravenous 1,920 ml @ 80 mls/hr TPN CONT IV Last administered on 09/01/19at 22:57; Start 09/01/19 at 22:00; Stop 09/02/19 at 21:59; Status DC Potassium Chloride 90 meq/ Magnesium Sulfate 20 meq/ Multivitamins 10 ml/Chromium/ Copper/Manganese/ Seleni/Zn 1 ml/ Insulin Human Regular 15 unit/ Total Parenteral Nutrition/Amino Acids/Dextrose/ Fat Emulsion Intravenous 1,920 ml @ 80 mls/hr TPN CONT IV Last administered on 09/02/19at 22:48; Start 09/02/19 at 22:00; Stop 09/03/19 at 21:59; Status DC Potassium Chloride 90 meq/ Magnesium Sulfate 20 meq/ Multivitamins 10 ml/Chromium/ Copper/Manganese/ Seleni/Zn 1 ml/ Insulin Human Regular 15 unit/ Total Parenteral Nutrition/Amino Acids/Dextrose/ Fat Emulsion Intravenous 1,890 ml @ 78.75 mls/ hr TPN CONT IV Last administered on 09/03/19at 22:15; Start 09/03/19 at 22:00; Stop 09/04/19 at 21:59; Status DC Linezolid/Dextrose 300 ml @ 300 mls/hr Q12HR IV Last administered on 09/06/19at 21:08; Start 09/04/19 at 09:00; Stop 09/07/19 at 08:11; Status DC Daptomycin 450 mg/ Sodium Chloride 50 ml @ 100 mls/hr Q24H IV Last administered on 09/07/19at 09:25; Start 09/04/19 at 09:00; Stop 09/08/19 at 08:30; Status DC Potassium Chloride 90 meq/ Magnesium Sulfate 20 meq/ Multivitamins 10 ml/Chromium/ Copper/Manganese/ Seleni/Zn 1 ml/ Insulin Human Regular 15 unit/ Total Parenteral Nutrition/Amino Acids/Dextrose/ Fat Emulsion Intravenous 1,890 ml @ 78.75 mls/ hr TPN CONT IV Last administered on 09/04/19at 21:34; Start 09/04/19 at 22:00; Stop 09/05/19 at 21:59; Status DC Lorazepam (Ativan Inj) 2 mg STK-MED ONCE .ROUTE ; Start 09/04/19 at 14:58; Stop 09/04/19 at 14:58; Status DC Metoprolol Tartrate (Lopressor Vial) 5 mg 1X ONCE IVP Last administered on 09/04/19at 15:31; Start 09/04/19 at 15:15; Stop 09/04/19 at 15:16; Status DC Lorazepam (Ativan Inj) 2 mg 1X ONCE IVP Last administered on 09/04/19at 15:30; Start 09/04/19 at 15:15; Stop 09/04/19 at 15:16; Status DC Enoxaparin Sodium (Lovenox 40mg Syringe) 40 mg Q24H SQ Last administered on 09/23/19at 17:44; Start 09/04/19 at 17:00; Stop 09/25/19 at 06:50; Status DC Lorazepam (Ativan Inj) 1 mg PRN Q4HRS PRN IVP ANXIETY / AGITATION MILD-MOD Last administered on 09/18/19at 15:55; Start 09/04/19 at 19:15; Stop 09/20/19 at 11:45; Status DC Lorazepam (Ativan Inj) 2 mg PRN Q4HRS PRN IVP ANXIETY / AGITATION SEVERE Last administered on 09/19/19at 07:55; Start 09/04/19 at 19:15; Stop 09/20/19 at 11:45; Status DC Fentanyl Citrate (Fentanyl 2ml Vial) 50 mcg PRN Q4HRS PRN IVP SEVERE PAIN Last administered on 10/01/19at 05:15; Start 09/05/19 at 13:15; Stop 10/02/19 at 09:29; Status DC Fentanyl Citrate (Fentanyl 2ml Vial) 25 mcg PRN Q4HRS PRN IVP MODERATE PAIN Last administered on 10/01/19at 00:27; Start 09/05/19 at 13:15; Stop 10/02/19 at 09:30; Status DC Potassium Chloride 90 meq/ Magnesium Sulfate 20 meq/ Multivitamins 10 ml/Chromium/ Copper/Manganese/ Seleni/Zn 1 ml/ Insulin Human Regular 15 unit/ Total Parenteral Nutrition/Amino Acids/Dextrose/ Fat Emulsion Intravenous 1,890 ml @ 78.75 mls/ hr TPN CONT IV Last administered on 09/05/19at 22:18; Start 09/05/19 at 22:00; Stop 09/06/19 at 21:59; Status DC Furosemide (Lasix) 40 mg 1X ONCE IVP Last administered on 09/05/19at 21:51; Start 09/05/19 at 21:45; Stop 09/05/19 at 21:48; Status DC Albumin Human 100 ml @ 100 mls/hr 1X PRN PRN IV SEE COMMENTS; Start 09/06/19 at 01:30 Furosemide (Lasix) 40 mg [id number] IVP Last administered on 09/21/19at 08:04; Start 09/06/19 at 14:00; Stop 09/21/19 at 13:07; Status DC Potassium Chloride 90 meq/ Magnesium Sulfate 20 meq/ Multivitamins 10 ml/Chromium/ Copper/Manganese/ Seleni/Zn 1 ml/ Insulin Human Regular 15 unit/ Total Parenteral Nutrition/Amino Acids/Dextrose/ Fat Emulsion Intravenous 1,800 ml @ 75 mls/hr TPN CONT IV Last administered on 09/06/19at 22:31; Start 09/06/19 at 22:00; Stop 09/07/19 at 21:59; Status DC Potassium Chloride 90 meq/ Magnesium Sulfate 20 meq/ Multivitamins 10 ml/Chromium/ Copper/Manganese/ Seleni/Zn 1 ml/ Insulin Human Regular 15 unit/ Total Parenteral Nutrition/Amino Acids/Dextrose/ Fat Emulsion Intravenous 1,800 ml @ 75 mls/hr TPN CONT IV Last administered on 09/07/19at 22:28; Start 09/07/19 at 22:00; Stop 09/08/19 at 21:59; Status DC Potassium Chloride 110 meq/ Magnesium Sulfate 20 meq/ Multivitamins 10 ml/Chromium/ Copper/Manganese/ Seleni/Zn 1 ml/ Insulin Human Regular 15 unit/ Total Parenteral Nutrition/Amino Acids/Dextrose/ Fat Emulsion Intravenous 1,800 ml @ 75 mls/hr TPN CONT IV Last administered on 09/08/19at 22:01; Start 09/08/19 at 22:00; Stop 09/09/19 at 21:59; Status DC Saliva Substitute (Biotene Moisturizing Mouth) 2 spray PRN Q15MIN PRN PO DRY MOUTH; Start 09/08/19 at 11:00 Potassium Chloride 110 meq/ Magnesium Sulfate 20 meq/ Multivitamins 10 ml/Chromium/ Copper/Manganese/ Seleni/Zn 1 ml/ Insulin Human Regular 15 unit/ Total Parenteral Nutrition/Amino Acids/Dextrose/ Fat Emulsion Intravenous 1,800 ml @ 75 mls/hr TPN CONT IV Last administered on 09/09/19at 22:21; Start 09/09/19 at 22:00; Stop 09/10/19 at 21:59; Status DC Potassium Chloride 110 meq/ Magnesium Sulfate 20 meq/ Multivitamins 10 ml/Chromium/ Copper/Manganese/ Seleni/Zn 1 ml/ Insulin Human Regular 15 unit/ Total Parenteral Nutrition/Amino Acids/Dextrose/ Fat Emulsion Intravenous 1,800 ml @ 75 mls/hr TPN CONT IV Last administered on 09/10/19at 22:04; Start 09/10/19 at 22:00; Stop 09/11/19 at 21:59; Status DC Potassium Chloride 110 meq/ Magnesium Sulfate 20 meq/ Multivitamins 10 ml/Chromium/ Copper/Manganese/ Seleni/Zn 1 ml/ Insulin Human Regular 15 unit/ Total Parenteral Nutrition/Amino Acids/Dextrose/ Fat Emulsion Intravenous 1,800 ml @ 75 mls/hr TPN CONT IV Last administered on 09/11/19at 22:48; Start 09/11/19 at 22:00; Stop 09/12/19 at 21:59; Status DC Potassium Chloride 70 meq/ Magnesium Sulfate 20 meq/ Multivitamins 10 ml/Chromium/ Copper/Manganese/ Seleni/Zn 1 ml/ Insulin Human Regular 15 unit/ Total Parenteral Nutrition/Amino Acids/Dextrose/ Fat Emulsion Intravenous 1,800 ml @ 75 mls/hr TPN CONT IV Last administered on 09/12/19at 21:39; Start 09/12/19 at 22:00; Stop 09/13/19 at 21:59; Status DC Meropenem 500 mg/ Sodium Chloride 50 ml @ 100 mls/hr Q6HRS IV Last administered on 09/14/19at 06:02; Start 09/12/19 at 18:00; Stop 09/14/19 at 09:59; Status DC Barium Sulfate (Varibar Thin Liquid Apple) 148 gm 1X ONCE PO ; Start 09/13/19 at 11:45; Stop 09/13/19 at 11:49; Status DC Potassium Chloride 70 meq/ Magnesium Sulfate 20 meq/ Multivitamins 10 ml/Chromium/ Copper/Manganese/ Seleni/Zn 1 ml/ Insulin Human Regular 15 unit/ Total Parenteral Nutrition/Amino Acids/Dextrose/ Fat Emulsion Intravenous 1,800 ml @ 75 mls/hr TPN CONT IV Last administered on 09/13/19at 22:27; Start 09/13/19 at 22:00; Stop 09/14/19 at 21:59; Status DC Piperacillin Sod/ Tazobactam Sod 3.375 gm/Sodium Chloride 50 ml @ 100 mls/hr Q6HRS IV Last administered on 09/22/19at 06:10; Start 09/14/19 at 12:00; Stop 09/22/19 at 07:26; Status DC Potassium Chloride 70 meq/ Magnesium Sulfate 20 meq/ Multivitamins 10 ml/Chromium/ Copper/Manganese/ Seleni/Zn 1 ml/ Insulin Human Regular 15 unit/ Total Parenteral Nutrition/Amino Acids/Dextrose/ Fat Emulsion Intravenous 1,800 ml @ 75 mls/hr TPN CONT IV Last administered on 09/14/19at 22:03; Start 09/14/19 at 22:00; Stop 09/15/19 at 21:59; Status DC Potassium Chloride 70 meq/ Magnesium Sulfate 20 meq/ Multivitamins 10 ml/Chromium/ Copper/Manganese/ Seleni/Zn 1 ml/ Insulin Human Regular 15 unit/ Total Parenteral Nutrition/Amino Acids/Dextrose/ Fat Emulsion Intravenous 1,800 ml @ 75 mls/hr TPN CONT IV Last administered on 09/15/19at 22:33; Start 09/15/19 at 22:00; Stop 09/16/19 at 21:59; Status DC Potassium Chloride 70 meq/ Magnesium Sulfate 20 meq/ Multivitamins 10 ml/Chromium/ Copper/Manganese/ Seleni/Zn 1 ml/ Insulin Human Regular 15 unit/ Total Parenteral Nutrition/Amino Acids/Dextrose/ Fat Emulsion Intravenous 1,800 ml @ 75 mls/hr TPN CONT IV Last administered on 09/16/19at 23:13; Start 09/16/19 at 22:00; Stop 09/17/19 at 21:59; Status DC Potassium Chloride 80 meq/ Magnesium Sulfate 20 meq/ Multivitamins 10 ml/Chromium/ Copper/Manganese/ Seleni/Zn 1 ml/ Insulin Human Regular 15 unit/ Total Parenteral Nutrition/Amino Acids/Dextrose/ Fat Emulsion Intravenous 1,800 ml @ 75 mls/hr TPN CONT IV Last administered on 09/17/19at 22:30; Start 09/17/19 at 22:00; Stop 09/18/19 at 21:59; Status DC Potassium Chloride 80 meq/ Magnesium Sulfate 20 meq/ Multivitamins 10 ml/Chromium/ Copper/Manganese/ Seleni/Zn 1 ml/ Insulin Human Regular 15 unit/ To anthony Parenteral Nutrition/Amino Acids/Dextrose/ Fat Emulsion Intravenous 1,800 ml @ 75 mls/hr TPN CONT IV Last administered on 09/18/19at 21:54; Start 09/18/19 at 22:00; Stop 09/19/19 at 21:59; Status DC Potassium Chloride/Water 100 ml @ 100 mls/hr 1X ONCE IV Last administered on 09/19/19at 10:15; Start 09/19/19 at 10:00; Stop 09/19/19 at 10:59; Status DC Potassium Chloride 90 meq/ Magnesium Sulfate 20 meq/ Multivitamins 10 ml/Chromium/ Copper/Manganese/ Seleni/Zn 1 ml/ Insulin Human Regular 20 unit/ Total Parenteral Nutrition/Amino Acids/Dextrose/ Fat Emulsion Intravenous 1,800 ml @ 75 mls/hr TPN CONT IV Last administered on 09/19/19at 22:28; Start 09/19/19 at 22:00; Stop 09/20/19 at 21:59; Status DC Potassium Chloride 90 meq/ Magnesium Sulfate 20 meq/ Multivitamins 10 ml/Chromium/ Copper/Manganese/ Seleni/Zn 1 ml/ Insulin Human Regular 20 unit/ Total Parenteral Nutrition/Amino Acids/Dextrose/ Fat Emulsion Intravenous 1,800 ml @ 75 mls/hr TPN CONT IV Last administered on 09/20/19at 22:08; Start 09/20/19 at 22:00; Stop 09/21/19 at 21:59; Status DC Lorazepam (Ativan Inj) 0.25 mg PRN Q4HRS PRN IVP ANXIETY / AGITATION Last administered on 11/07/19at 03:28; Start 09/21/19 at 07:30 Potassium Chloride 90 meq/ Magnesium Sulfate 20 meq/ Multivitamins 10 ml/Chromium/ Copper/Manganese/ Seleni/Zn 1 ml/ Insulin Human Regular 20 unit/ Total Parenteral Nutrition/Amino Acids/Dextrose/ Fat Emulsion Intravenous 1,800 ml @ 75 mls/hr TPN CONT IV Last administered on 09/21/19at 23:13; Start 09/21/19 at 22:00; Stop 09/22/19 at 21:59; Status DC Furosemide (Lasix) 40 mg DAILY IVP Last administered on 09/23/19at 11:14; Start 09/21/19 at 13:30; Stop 09/25/19 at 09:12; Status DC Fluoxetine HCl (PROzac) 20 mg QHS PEG Last administered on 11/11/19at 21:24; Start 09/22/19 at 21:00 Fentanyl (Duragesic 50mcg/ Hr Patch) 1 patch Q72H TD Last administered on 09/22/19at 21:22; Start 09/22/19 at 21:00; Stop 10/01/19 at 12:00; Status DC Potassium Chloride 40 meq/ Potassium Acetate 60 meq/Magnesium Sulfate 10 meq/ Multivitamins 10 ml/Chromium/ Copper/Manganese/ Seleni/Zn 1 ml/ Insulin Human Regular 20 unit/ Total Parenteral Nutrition/Amino Acids/Dextrose/ Fat Emulsion Intravenous 1,800 ml @ 75 mls/hr TPN CONT IV Last administered on 09/23/19at 00:03; Start 09/22/19 at 22:00; Stop 09/23/19 at 21:59; Status DC Potassium Acetate 80 meq/Magnesium Sulfate 5 meq/ Multivitamins 10 ml/Chromium/ Copper/Manganese/ Seleni/Zn 1 ml/ Insulin Human Regular 20 unit/ Total Parenteral Nutrition/Amino Acids/Dextrose/ Fat Emulsion Intravenous 1,920 ml @ 80 mls/hr TPN CONT IV Last administered on 09/23/19at 21:59; Start 09/23/19 at 22:00; Stop 09/24/19 at 21:59; Status DC Potassium Acetate 60 meq/Magnesium Sulfate 5 meq/ Multivitamins 10 ml/Chromium/ Copper/Manganese/ Seleni/Zn 1 ml/ Insulin Human Regular 30 unit/ Total Janett ral Nutrition/Amino Acids/Dextrose/ Fat Emulsion Intravenous 1,920 ml @ 80 mls/hr TPN CONT IV Last administered on 09/24/19at 21:54; Start 09/24/19 at 22:00; Stop 09/25/19 at 21:59; Status DC Norepinephrine Bitartrate 8 mg/ Dextrose 258 ml @ 13.332 mls/ hr CONT PRN IV PER PROTOCOL Last administered on 10/20/19at 09:09; Start 09/25/19 at 06:30 Albumin Human 500 ml @ 125 mls/hr 1X ONCE IV Last administered on 09/25/19at 08:10; Start 09/25/19 at 08:15; Stop 09/25/19 at 12:14; Status DC Potassium Acetate 40 meq/Magnesium Sulfate 5 meq/ Multivitamins 10 ml/Chromium/ Copper/Manganese/ Seleni/Zn 1 ml/ Insulin Human Regular 30 unit/ Total Pa renteral Nutrition/Amino Acids/Dextrose/ Fat Emulsion Intravenous 1,920 ml @ 80 mls/hr TPN CONT IV Last administered on 09/25/19at 22:23; Start 09/25/19 at 22:00; Stop 09/26/19 at 21:59; Status DC Meropenem 1 gm/ Sodium Chloride 100 ml @ 200 mls/hr Q8HRS IV ; Start 09/25/19 at 14:00; Status Cancel Meropenem 1 gm/ Sodium Chloride 100 ml @ 200 mls/hr Q8HRS IV Last administered on 09/25/19at 11:04; Start 09/25/19 at 10:00; Stop 09/25/19 at 13:00; Status DC Meropenem 1 gm/ Sodium Chloride 100 ml @ 200 mls/hr Q12HR IV Last administered on 10/13/19at 08:27; Start 09/25/19 at 21:00; Stop 10/13/19 at 08:56; Status DC Sodium Chloride 1,000 ml @ 1,000 mls/hr 1X ONCE IV Last administered on 09/25/19at 11:06; Start 09/25/19 at 10:45; Stop 09/25/19 at 11:44; Status DC Micafungin Sodium 100 mg/Dextrose 100 ml @ 100 mls/hr Q24H IV Last administered on 10/12/19at 12:34; Start 09/25/19 at 11:00; Stop 10/13/19 at 08:56; Status DC Daptomycin 410 mg/ Sodium Chloride 50 ml @ 100 mls/hr Q24H IV Last administered on 09/27/19at 13:33; Start 09/25/19 at 14:00; Stop 09/28/19 at 08:30; Status DC Midazolam HCl (Versed) 2 mg STK-MED ONCE .ROUTE ; Start 09/25/19 at 14:47; Stop 09/25/19 at 14:48; Status DC Fentanyl Citrate (Fentanyl 2ml Vial) 100 mcg STK-MED ONCE .ROUTE ; Start 09/25/19 at 14:47; Stop 09/25/19 at 14:48; Status DC Flumazenil (Romazicon) 0.5 mg STK-MED ONCE IV ; Start 09/25/19 at 14:48; Stop 09/25/19 at 14:48; Status DC Naloxone HCl (Narcan) 0.4 mg STK-MED ONCE .ROUTE ; Start 09/25/19 at 14:48; Stop 09/25/19 at 14:48; Status DC Lidocaine HCl (Lidocaine 1% 20ml Vial) 20 ml STK-MED ONCE .ROUTE ; Start 09/25/19 at 14:48; Stop 09/25/19 at 14:48; Status DC Midazolam HCl (Versed) 2 mg 1X ONCE IV Last administered on 09/25/19at 15:28; Start 09/25/19 at 15:00; Stop 09/25/19 at 15:01; Status DC Fentanyl Citrate (Fentanyl 2ml Vial) 100 mcg 1X ONCE IV Last administered on 09/25/19at 15:28; Start 09/25/19 at 15:00; Stop 09/25/19 at 15:01; Status DC Lidocaine HCl (Lidocaine 1% 20ml Vial) 20 ml 1X ONCE INJ Last administered on 09/25/19at 15:30; Start 09/25/19 at 15:00; Stop 09/25/19 at 15:01; Status DC Sodium Chloride 1,000 ml @ 100 mls/hr Q10H IV Last administered on 10/04/19at 07:30; Start 09/25/19 at 20:00; Stop 10/04/19 at 11:26; Status DC Sodium Bicarbonate (Sodium Bicarb Adult 8.4% Syr) 50 meq 1X ONCE IV Last administered on 09/25/19at 21:47; Start 09/25/19 at 22:00; Stop 09/25/19 at 22:01; Status DC Potassium Acetate 40 meq/Magnesium Sulfate 5 meq/ Multivitamins 10 ml/Chromium/ Copper/Manganese/ Seleni/Zn 1 ml/ Insulin Human Regular 30 unit/ Total Parenteral Nutrition/Amino Acids/Dextrose/ Fat Emulsion Intravenous 1,920 ml @ 80 mls/hr TPN CONT IV Last administered on 09/26/19at 22:28; Start 09/26/19 at 22:00; Stop 09/27/19 at 21:59; Status DC Sodium Chloride 500 ml @ 500 mls/hr 1X ONCE IV Last administered on 09/27/19at 06:39; Start 09/27/19 at 06:45; Stop 09/27/19 at 07:44; Status DC Potassium Acetate 40 meq/Magnesium Sulfate 5 meq/ Multivitamins 10 ml/Chromium/ Copper/Manganese/ Seleni/Zn 1 ml/ Insulin Human Regular 30 unit/ Total Parenteral Nutrition/Amino Acids/Dextrose/ Fat Emulsion Intravenous 1,920 ml @ 80 mls/hr TPN CONT IV Last administered on 09/27/19at 22:03; Start 09/27/19 at 22:00; Stop 09/28/19 at 21:59; Status DC Metoprolol Tartrate (Lopressor Vial) 5 mg PRN Q6HRS PRN IVP HYPERTENSION Last administered on 11/12/19at 03:08; Start 09/28/19 at 09:00 Potassium Acetate 40 meq/Magnesium Sulfate 5 meq/ Multivitamins 10 ml/Chromium/ Copper/Manganese/ Seleni/Zn 1 ml/ Insulin Human Regular 30 unit/ Total Parenteral Nutrition/Amino Acids/Dextrose/ Fat Emulsion Intravenous 1,920 ml @ 80 mls/hr TPN CONT IV Last administered on 09/28/19at 21:26; Start 09/28/19 at 22:00; Stop 09/29/19 at 21:59; Status DC Potassium Acetate 40 meq/Magnesium Sulfate 5 meq/ Multivitamins 10 ml/Chromium/ Copper/Manganese/ Seleni/Zn 1 ml/ Insulin Human Regular 30 unit/ Total Parenteral Nutrition/Amino Acids/Dextrose/ Fat Emulsion Intravenous 1,920 ml @ 80 mls/hr TPN CONT IV Last administered on 09/29/19at 23:23; Start 09/29/19 at 22:00; Stop 09/30/19 at 21:59; Status DC Potassium Acetate 40 meq/Magnesium Sulfate 5 meq/ Multivitamins 10 ml/Chromium/ Copper/Manganese/ Seleni/Zn 1 ml/ Insulin Human Regular 30 unit/ Total Parenteral Nutrition/Amino Acids/Dextrose/ Fat Emulsion Intravenous 1,920 ml @ 80 mls/hr TPN CONT IV Last administered on 09/30/19at 21:35; Start 09/30/19 at 22:00; Stop 10/01/19 at 21:59; Status DC Furosemide (Lasix) 20 mg 1X ONCE IVP Last administered on 10/01/19at 06:26; Start 10/01/19 at 06:15; Stop 10/01/19 at 06:16; Status DC Methylprednisolone Sodium Succinate (SOLU-Medrol 125MG VIAL) 125 mg 1X ONCE IV Last administered on 10/01/19at 06:26; Start 10/01/19 at 06:15; Stop 10/01/19 at 06:16; Status DC Albuterol/ Ipratropium (Duoneb) 3 ml Q4HRS NEB Last administered on 11/12/19at 08:51; Start 10/01/19 at 08:00 Fentanyl Citrate 30 ml @ 0 mls/hr CONT PRN IV SEE PROTOCOL Last administered on 10/22/19at 08:03; Start 10/01/19 at 06:00; Stop 10/22/19 at 12:42; Status DC Propofol 100 ml @ 0 mls/hr CONT PRN IV SEE PROTOCOL Last administered on 10/08/19at 23:50; Start 10/01/19 at 06:00 Fentanyl Citrate (Fentanyl 2ml Vial) 25 mcg PRN Q1HR PRN IV SEE COMMENTS Last administered on 11/10/19at 22:32; Start 10/01/19 at 06:00 Fentanyl Citrate (Fentanyl 2ml Vial) 50 mcg PRN Q1HR PRN IV SEE COMMENTS Last administered on 11/12/19at 04:07; Start 10/01/19 at 06:00 Chlorhexidine Gluconate (Peridex) 15 ml BID MM ; Start 10/01/19 at 09:00; Stop 10/01/19 at 07:58; Status DC Potassium Acetate 40 meq/Magnesium Sulfate 5 meq/ Multivitamins 10 ml/Chromium/ Copper/Manganese/ Seleni/Zn 1 ml/ Insulin Human Regular 30 unit/ Total Parenteral Nutrition/Amino Acids/Dextrose/ Fat Emulsion Intravenous 1,920 ml @ 80 mls/hr TPN CONT IV Last administered on 10/01/19at 21:19; Start 10/01/19 at 22:00; Stop 10/02/19 at 21:59; Status DC Acetylcysteine (Mucomyst 20% Resp Treatment) 600 mg BID NEB Last administered on 10/07/19at 09:33; Start 10/01/19 at 21:00; Stop 10/07/19 at 10:39; Status DC Magnesium Sulfate 100 ml @ 25 mls/hr 1X ONCE IV Last administered on 10/01/19at 15:48; Start 10/01/19 at 15:45; Stop 10/01/19 at 19:44; Status DC Potassium Acetate 40 meq/Magnesium Sulfate 5 meq/ Multivitamins 10 ml/Chromium/ Copper/Manganese/ Seleni/Zn 1 ml/ Insulin Human Regular 30 unit/ Total Parenteral Nutrition/Amino Acids/Dextrose/ Fat Emulsion Intravenous 1,920 ml @ 80 mls/hr TPN CONT IV Last administered on 10/02/19at 21:35; Start 10/02/19 at 22:00; Stop 10/03/19 at 21:59; Status DC Potassium Chloride/Water 100 ml @ 100 mls/hr Q1H IV Last administered on 10/03/19at 08:31; Start 10/03/19 at 07:00; Stop 10/03/19 at 08:59; Status DC Potassium Acetate 40 meq/Magnesium Sulfate 5 meq/ Multivitamins 10 ml/Chromium/ Copper/Manganese/ Seleni/Zn 1 ml/ Insulin Human Regular 30 unit/ Total Parenteral Nutrition/Amino Acids/Dextrose/ Fat Emulsion Intravenous 1,920 ml @ 80 mls/hr TPN CONT IV Last administered on 10/03/19at 21:54; Start 10/03/19 at 22:00; Stop 10/04/19 at 19:34; Status DC Lidocaine HCl (Buffered Lidocaine 1%) 3 ml STK-MED ONCE .ROUTE ; Start 10/03/19 at 12:14; Stop 10/03/19 at 12:14; Status DC Lidocaine HCl (Buffered Lidocaine 1%) 3 ml 1X ONCE IJ Last administered on 10/03/19at 13:11; Start 10/03/19 at 13:00; Stop 10/03/19 at 13:01; Status DC Magnesium Sulfate 50 ml @ 25 mls/hr 1X ONCE IV ; Start 10/04/19 at 08:15; Stop 10/04/19 at 10:14; Status DC Potassium Acetate 40 meq/Magnesium Sulfate 10 meq/ Multivitamins 10 ml/Chromium/ Copper/Manganese/ Seleni/Zn 1 ml/ Insulin Human Regular 20 unit/ Total Parenteral Nutrition/Amino Acids/Dextrose/ Fat Emulsion Intravenous 1,920 ml @ 80 mls/hr TPN CONT IV Last administered on 10/04/19at 21:32; Start 10/04/19 at 22:00; Stop 10/05/19 at 21:59; Status DC Potassium Chloride/Water 100 ml @ 100 mls/hr Q1H IV Last administered on 10/05/19at 09:12; Start 10/05/19 at 08:00; Stop 10/05/19 at 09:59; Status DC Alteplase, Recombinant (Cathflo For Central Catheter Clearance) 4 mg 1X ONCE INT CAT ; Start 10/05/19 at 09:15; Stop 10/05/19 at 09:16; Status UNV Alteplase, Recombinant (Cathflo For Central Catheter Clearance) 4 mg 1X ONCE INT CAT ; Start 10/05/19 at 09:15; Stop 10/05/19 at 09:16; Status UNV Alteplase, Recombinant (Cathflo For Central Catheter Clearance) 4 mg 1X ONCE INT CAT ; Start 10/05/19 at 09:15; Stop 10/05/19 at 09:16; Status UNV Alteplase, Recombinant 4 mg/ Sodium Chloride 20 ml @ 20 mls/hr 1X ONCE IV Last administered on 10/05/19at 10:10; Start 10/05/19 at 10:00; Stop 10/05/19 at 10:59; Status DC Alteplase, Recombinant 4 mg/ Sodium Chloride 20 ml @ 20 mls/hr 1X ONCE IV Last administered on 10/05/19at 10:09; Start 10/05/19 at 10:00; Stop 10/05/19 at 10:59; Status DC Alteplase, Recombinant 4 mg/ Sodium Chloride 20 ml @ 20 mls/hr 1X ONCE IV Last administered on 10/05/19at 10:09; Start 10/05/19 at 10:00; Stop 10/05/19 at 10:59; Status DC Potassium Acetate 60 meq/Magnesium Sulfate 10 meq/ Multivitamins 10 ml/Chromium/ Copper/Manganese/ Seleni/Zn 1 ml/ Insulin Human Regular 20 unit/ Total Parenteral Nutrition/Amino Acids/Dextrose/ Fat Emulsion Intravenous 1,920 ml @ 80 mls/hr TPN CONT IV Last administered on 10/05/19at 21:55; Start 10/05/19 at 22:00; Stop 10/06/19 at 21:59; Status DC Albumin Human 500 ml @ 125 mls/hr 1X ONCE IV Last administered on 10/06/19at 12:01; Start 10/06/19 at 11:15; Stop 10/06/19 at 15:14; Status DC Sodium Chloride 500 ml @ 500 mls/hr 1X ONCE IV Last administered on 10/06/19at 13:50; Start 10/06/19 at 11:15; Stop 10/06/19 at 12:14; Status DC Potassium Acetate 60 meq/Magnesium Sulfate 14 meq/ Multivitamins 10 ml/Chromium/ Copper/Manganese/ Seleni/Zn 1 ml/ Insulin Human Regular 20 unit/ Total Parenteral Nutrition/Amino Acids/Dextrose/ Fat Emulsion Intravenous 1,920 ml @ 80 mls/hr TPN CONT IV Last administered on 10/06/19at 22:26; Start 10/06/19 at 22:00; Stop 10/07/19 at 21:59; Status DC Ciprofloxacin/ Dextrose 200 ml @ 200 mls/hr Q12HR IV Last administered on 10/13/19at 08:27; Start 10/06/19 at 21:00; Stop 10/13/19 at 08:56; Status DC Albumin Human 250 ml @ 62.5 mls/hr 1X ONCE IV Last administered on 10/07/19at 11:09; Start 10/07/19 at 11:00; Stop 10/07/19 at 14:59; Status DC Furosemide (Lasix) 20 mg 1X ONCE IVP Last administered on 10/07/19at 14:52; Start 10/07/19 at 10:45; Stop 10/07/19 at 10:49; Status DC Potassium Acetate 60 meq/Magnesium Sulfate 14 meq/ Multivitamins 10 ml/Chromium/ Copper/Manganese/ Seleni/Zn 1 ml/ Insulin Human Regular 15 unit/ Total Parenteral Nutrition/Amino Acids/Dextrose/ Fat Emulsion Intravenous 1,920 ml @ 80 mls/hr TPN CONT IV Last administered on 10/07/19at 22:08; Start 10/07/19 at 22:00; Stop 10/08/19 at 21:59; Status DC Potassium Acetate 60 meq/Magnesium Sulfate 14 meq/ Multivitamins 10 ml/Chromium/ Copper/Manganese/ Seleni/Zn 1 ml/ Insulin Human Regular 15 unit/ Total Parenteral Nutrition/Amino Acids/Dextrose/ Fat Emulsion Intravenous 1,920 ml @ 80 mls/hr TPN CONT IV Last administered on 10/08/19at 22:12; Start 10/08/19 at 22:00; Stop 10/09/19 at 21:59; Status DC Potassium Acetate 60 meq/Magnesium Sulfate 14 meq/ Multivitamins 10 ml/Chromium/ Copper/Manganese/ Seleni/Zn 1 ml/ Insulin Human Regular 15 unit/ Total Parenteral Nutrition/Amino Acids/Dextrose/ Fat Emulsion Intravenous 1,920 ml @ 80 mls/hr TPN CONT IV Last administered on 10/09/19at 22:22; Start 10/09/19 at 22:00; Stop 10/10/19 at 21:59; Status DC Furosemide (Lasix) 20 mg 1X ONCE IVP Last administered on 10/10/19at 11:07; Start 10/10/19 at 10:30; Stop 10/10/19 at 10:34; Status DC Potassium Acetate 60 meq/Magnesium Sulfate 14 meq/ Multivitamins 10 ml/Chromium/ Copper/Manganese/ Seleni/Zn 1 ml/ Insulin Human Regular 15 unit/ Sodium Chloride 20 meq/Total Parenteral Nutrition/Amino Acids/Dextrose/ Fat Emulsion Intravenous 1,920 ml @ 80 mls/hr TPN CONT IV Last administered on 10/10/19at 21:54; Start 10/10/19 at 22:00; Stop 10/11/19 at 21:59; Status DC Potassium Acetate 30 meq/Magnesium Sulfate 14 meq/ Multivitamins 10 ml/Chromium/ Copper/Manganese/ Seleni/Zn 1 ml/ Insulin Human Regular 15 unit/ Sodium Chloride 20 meq/Potassium Chloride 30 meq/ Total Parenteral Nutrition/Amino Acids/Dextrose/ Fat Emulsion Intravenous 1,920 ml @ 80 mls/hr TPN CONT IV Last administered on 10/11/19at 21:46; Start 10/11/19 at 22:00; Stop 10/12/19 at 21:59; Status DC Sodium Chloride 80 meq/Potassium Chloride 30 meq/ Potassium Acetate 30 meq/Magnesium Sulfate 14 meq/ Multivitamins 10 ml/Chromium/ Copper/Manganese/ Seleni/Zn 1 ml/ Insulin Human Regular 15 unit/ Total Parenteral Nutrition/Amino Acids/Dextrose/ Fat Emulsion Intravenous 1,920 ml @ 80 mls/hr TPN CONT IV Last administered on 10/12/19at 22:33; Start 10/12/19 at 22:00; Stop 10/13/19 at 21:59; Status DC Furosemide (Lasix) 40 mg 1X ONCE IVP Last administered on 10/12/19at 16:27; Start 10/12/19 at 15:30; Stop 10/12/19 at 15:33; Status DC Albumin Human 250 ml @ 62.5 mls/hr 1X ONCE IV Last administered on 10/12/19at 16:27; Start 10/12/19 at 15:30; Stop 10/12/19 at 19:29; Status DC Sodium Chloride 80 meq/Potassium Chloride 30 meq/ Potassium Acetate 30 meq/Magnesium Sulfate 14 meq/ Multivitamins 10 ml/Chromium/ Copper/Manganese/ Seleni/Zn 1 ml/ Insulin Human Regular 15 unit/ Total Parenteral Nutrition/Amino Acids/Dextrose/ Fat Emulsion Intravenous 1,920 ml @ 80 mls/hr TPN CONT IV Last administered on 10/13/19at 22:25; Start 10/13/19 at 22:00; Stop 10/14/19 at 21:59; Status DC Sodium Chloride 80 meq/Potassium Chloride 30 meq/ Potassium Acetate 30 meq/Magnesium Sulfate 14 meq/ Multivitamins 10 ml/Chromium/ Copper/Manganese/ Seleni/Zn 1 ml/ Insulin Human Regular 15 unit/ Total Parenteral Nutrition/Amino Acids/Dextrose/ Fat Emulsion Intravenous 1,920 ml @ 80 mls/hr TPN CONT IV Last administered on 10/14/19at 21:32; Start 10/14/19 at 22:00; Stop 10/15/19 at 21:59; Status DC Sodium Chloride 80 meq/Potassium Chloride 30 meq/ Potassium Acetate 30 meq/Magnesium Sulfate 14 meq/ Multivitamins 10 ml/Chromium/ Copper/Manganese/ Seleni/Zn 1 ml/ Insulin Human Regular 15 unit/ Total Parenteral Nutrition/Amino Acids/Dextrose/ Fat Emulsion Intravenous 1,920 ml @ 80 mls/hr TPN CONT IV Last administered on 10/15/19at 21:53; Start 10/15/19 at 22:00; Stop 10/16/19 at 21:59; Status DC Acetylcysteine (Mucomyst 20% Resp Treatment) 600 mg RTBID NEB Last administered on 11/12/19at 08:51; Start 10/15/19 at 12:00 Sodium Chloride 80 meq/Potassium Chloride 30 meq/ Potassium Acetate 30 meq/Magnesium Sulfate 14 meq/ Multivitamins 10 ml/Chromium/ Copper/Manganese/ Seleni/Zn 1 ml/ Insulin Human Regular 15 unit/ Total Parenteral Nutrition/Amino Acids/Dextrose/ Fat Emulsion Intravenous 1,920 ml @ 80 mls/hr TPN CONT IV Last administered on 10/16/19at 22:06; Start 10/16/19 at 22:00; Stop 10/17/19 at 21:59; Status DC Meropenem 500 mg/ Sodium Chloride 50 ml @ 100 mls/hr Q6HRS IV Last administered on 11/08/19at 06:15; Start 10/16/19 at 18:00; Stop 11/08/19 at 08:23; Status DC Daptomycin 500 mg/ Sodium Chloride 50 ml @ 100 mls/hr Q24H IV Last administered on 10/24/19at 21:47; Start 10/16/19 at 19:00; Stop 10/25/19 at 08:13; Status DC Sodium Chloride 80 meq/Potassium Chloride 30 meq/ Potassium Acetate 30 meq/Magnesium Sulfate 14 meq/ Multivitamins 10 ml/Chromium/ Copper/Manganese/ Seleni/Zn 1 ml/ Insulin Human Regular 15 unit/ Total Parenteral Nutrition/Amino Acids/Dextrose/ Fat Emulsion Intravenous 1,920 ml @ 80 mls/hr TPN CONT IV Last administered on 10/17/19at 22:09; Start 10/17/19 at 22:00; Stop 10/18/19 at 21:59; Status DC Heparin Sodium (Porcine) 1000 unit/Sodium Chloride 1,001 ml @ 1,001 mls/hr 1X ONCE IRR ; Start 10/18/19 at 06:00; Stop 10/18/19 at 06:59; Status DC Propofol (Diprivan) 200 mg STK-MED ONCE IV ; Start 10/18/19 at 07:44; Stop 10/18/19 at 07:44; Status DC Lidocaine HCl (Lidocaine Pf 2% Vial) 5 ml STK-MED ONCE .ROUTE ; Start 10/18/19 at 07:44; Stop 10/18/19 at 07:44; Status DC Fentanyl Citrate (Fentanyl 2ml Vial) 100 mcg STK-MED ONCE .ROUTE ; Start 10/18/19 at 07:44; Stop 10/18/19 at 07:44; Status DC Rocuronium [place] (Zemuron) 100 mg STK-MED ONCE .ROUTE ; Start 10/18/19 at 07:44; Stop 10/18/19 at 07:44; Status DC Micafungin Sodium 100 mg/Dextrose 100 ml @ 100 mls/hr Q24H IV Last administered on 11/12/19at 07:58; Start 10/18/19 at 08:30 Bupivacaine HCl/ Epinephrine Bitart (Sensorcain-Epi 0.5%-1:[id number] Mpf) 30 ml STK-MED ONCE .ROUTE ; Start 10/18/19 at 08:34; Stop 10/18/19 at 08:35; Status DC Iohexol (Omnipaque 300 Mg/ml) 50 ml STK-MED ONCE .ROUTE Last administered on 10/18/19at 13:30; Start 10/18/19 at 08:35; Stop 10/18/19 at 08:35; Status DC Sodium Chloride 80 meq/Potassium Chloride 30 meq/ Potassium Acetate 30 meq/Magnesium Sulfate 14 meq/ Multivitamins 10 ml/Chromium/ Copper/Manganese/ Seleni/Zn 1 ml/ Insulin Human Regular 15 unit/ Total Parenteral Nutrition/Amino Acids/Dextrose/ Fat Emulsion Intravenous 1,920 ml @ 80 mls/hr TPN CONT IV Last administered on 10/19/19at 01:22; Start 10/18/19 at 22:00; Stop 10/19/19 at 21:59; Status DC Phenylephrine HCl (Brayden-Synephrine Inj) 10 mg STK-MED ONCE .ROUTE ; Start 10/18/19 at 10:15; Stop 10/18/19 at 10:15; Status DC Desflurane (Suprane) 90 ml STK-MED ONCE IH ; Start 10/18/19 at 10:18; Stop 10/18/19 at 10:19; Status DC Albumin Human 500 ml @ As Directed STK-MED ONCE IV ; Start 10/18/19 at 11:06; Stop 10/18/19 at 11:06; Status DC Vasopressin (Vasostrict) 20 unit STK-MED ONCE .ROUTE ; Start 10/18/19 at 12:23; Stop 10/18/19 at 12:23; Status DC Phenylephrine HCl (Brayden-Synephrine Inj) 10 mg STK-MED ONCE .ROUTE ; Start 10/18/19 at 13:33; Stop 10/18/19 at 13:33; Status DC Phenylephrine HCl (Brayden-Synephrine Inj) 10 mg STK-MED ONCE .ROUTE ; Start 10/18/19 at 13:33; Stop 10/18/19 at 13:33; Status DC Ondansetron HCl (Zofran) 4 mg STK-MED ONCE .ROUTE ; Start 10/18/19 at 13:33; Stop 10/18/19 at 13:33; Status DC Enoxaparin Sodium (Lovenox 40mg Syringe) 40 mg Q24H SQ Last administered on 11/12/19at 07:56; Start 10/19/19 at 08:00 Sodium Chloride (Normal Saline Flush) 3 ml QSHIFT PRN IV AFTER MEDS AND BLOOD DRAWS; Start 10/18/19 at 14:45 Naloxone HCl (Narcan) 0.4 mg PRN Q2MIN PRN IV SEE INSTRUCTIONS; Start 10/18/19 at 14:45 Sodium Chloride 1,000 ml @ 25 mls/hr Q24H IV Last administered on 11/08/19at 14:54; Start 10/18/19 at 14:33 Morphine Sulfate (Morphine Sulfate) 1 mg PRN Q1HR PRN IV PAIN; Start 10/18/19 at 14:45 Midazolam HCl 100 mg/Sodium Chloride 100 ml @ 1 mls/hr CONT PRN IV SEE I/O RECORD Last administered on 10/21/19at 18:48; Start 10/18/19 at 14:45 Phenylephrine HCl (PHENYLEPHRINE in 0.9% NACL PF) 1 mg STK-MED ONCE IV ; Start 10/18/19 at 14:44; Stop 10/18/19 at 14:45; Status DC Ephedrine Sulfate (ePHEDrine PF IN SALINE SYRINGE) 50 mg STK-MED ONCE IV ; Start 10/18/19 at 14:45; Stop 10/18/19 at 14:45; Status DC Vasopressin 20 unit/Dextrose 101 ml @ 12 mls/hr CONT PRN IV SEE I/O RECORD Last administered on 10/25/19at 04:17; Start 10/18/19 at 15:30 Sodium Chloride 1,000 ml @ 1,000 mls/hr 1X ONCE IV Last administered on 10/18/19at 15:42; Start 10/18/19 at 15:45; Stop 10/18/19 at 16:44; Status DC Albumin Human 500 ml @ 125 mls/hr 1X ONCE IV ; Start 10/18/19 at 16:00; Stop 10/18/19 at 19:59; Status DC Albumin Human 500 ml @ 125 mls/hr PRN Q1HR PRN IV PER PROTOCOL; Start 10/18/19 at 15:45 Magnesium Sulfate 50 ml @ 25 mls/hr 1X ONCE IV Last administered on 10/18/19at 17:02; Start 10/18/19 at 16:30; Stop 10/18/19 at 18:29; Status DC Sodium Bicarbonate (Sodium Bicarb Adult 8.4% Syr) 50 meq STK-MED ONCE .ROUTE ; Start 10/18/19 at 16:20; Stop 10/18/19 at 16:20; Status DC Sodium Bicarbonate (Sodium Bicarb Adult 8.4% Syr) 100 meq 1X ONCE IV Last administered on 10/18/19at 17:07; Start 10/18/19 at 16:30; Stop 10/18/19 at 16:31; Status DC Sodium Bicarbonate 150 meq/Dextrose 1,150 ml @ 75 mls/hr 1X ONCE IV Last administered on 10/18/19at 20:02; Start 10/18/19 at 16:30; Stop 10/19/19 at 07:49; Status DC Sodium Chloride 80 meq/Potassium Chloride 30 meq/ Potassium Acetate 30 meq/Magnesium Sulfate 14 meq/ Multivitamins 10 ml/Chromium/ Copper/Manganese/ Seleni/Zn 1 ml/ Insulin Human Regular 15 unit/ Total Parenteral Nutrition/Amino Acids/Dextrose/ Fat Emulsion Intravenous 1,920 ml @ 80 mls/hr TPN CONT IV Last administered on 10/19/19at 23:05; Start 10/19/19 at 22:00; Stop 10/20/19 at 21:59; Status DC Sodium Chloride 100 meq/Potassium Chloride 30 meq/ Potassium Acetate 30 meq/Magnesium Sulfate 12 meq/ Multivitamins 10 ml/Chromium/ Copper/Manganese/ Seleni/Zn 1 ml/ Insulin Human Regular 15 unit/ Total Parenteral Nutrition/Amino Acids/Dextrose/ Fat Emulsion Intravenous 1,920 ml @ 80 mls/hr TPN CONT IV Last administered on 10/20/19at 21:52; Start 10/20/19 at 22:00; Stop 10/21/19 at 21 :59; Status DC Sodium Chloride 100 meq/Potassium Chloride 30 meq/ Potassium Acetate 30 meq/Magnesium Sulfate 12 meq/ Multivitamins 10 ml/Chromium/ Copper/Manganese/ Seleni/Zn 1 ml/ Insulin Human Regular 15 unit/ Total Parenteral Nutrition/Amino Acids/Dextrose/ Fat Emulsion Intravenous 1,920 ml @ 80 mls/hr TPN CONT IV Last administered on 10/21/19at 21:46; Start 10/21/19 at 22:00; Stop 10/22/19 at 21:59; Status DC Sodium Chloride 100 meq/Potassium Chloride 30 meq/ Potassium Acetate 30 meq/Magnesium Sulfate 12 meq/ Multivitamins 10 ml/Chromium/ Copper/Manganese/ Seleni/Zn 1 ml/ Insulin Human Regular 15 unit/ Total Parenteral Nutrition/Amino Acids/Dextrose/ Fat Emulsion Intravenous 1,800 ml @ 75 mls/hr TPN CONT IV Last administered on 10/22/19at 22:04; Start 10/22/19 at 22:00; Stop 10/23/19 at 21:59; Status DC Fentanyl Citrate 55 ml @ 0 mls/hr CONT PRN IV SEE COMMENTS Last administered on 10/24/19at 23:55; Start 10/22/19 at 13:00; Stop 10/27/19 at 17:28; Status DC Sodium Chloride 100 meq/Potassium Chloride 30 meq/ Potassium Acetate 30 meq/Magnesium Sulfate 12 meq/ Multivitamins 10 ml/Chromium/ Copper/Manganese/ Seleni/Zn 1 ml/ Insulin Human Regular 15 unit/ Total Parenteral Nutrition/Amino Acids/Dextrose/ Fat Emulsion Intravenous 1,680 ml @ 70 mls/hr TPN CONT IV Last administered on 10/23/19at 21:23; Start 10/23/19 at 22:00; Stop 10/24/19 at 21:59; Status DC Sodium Chloride 110 meq/Potassium Chloride 30 meq/ Potassium Acetate 30 meq/Magnesium Sulfate 15 meq/ Multivitamins 10 ml/Chromium/ Copper/Manganese/ Seleni/Zn 1 ml/ Insulin Human Regular 15 unit/ Total Parenteral Nutrition/Amino Acids/Dextrose/ Fat Emulsion Intravenous 1,680 ml @ 70 mls/hr TPN CONT IV Last administered on 10/24/19at 21:48; Start 10/24/19 at 22:00; Stop 10/25/19 at 21:59; Status DC Sodium Chloride 110 meq/Potassium Chloride 30 meq/ Potassium Acetate 30 meq/Magnesium Sulfate 15 meq/ Multivitamins 10 ml/Chromium/ Copper/Manganese/ Seleni/Zn 1 ml/ Insulin Human Regular 15 unit/ Total Parenteral Nutrition/Amino Acids/Dextrose/ Fat Emulsion Intravenous 1,680 ml @ 70 mls/hr TPN CONT IV Last administered on 10/25/19at 21:33; Start 10/25/19 at 22:00; Stop 10/26/19 at 21:59; Status DC Sodium Chloride 110 meq/Potassium Chloride 30 meq/ Potassium Acetate 30 meq/Magnesium Sulfate 15 meq/ Multivitamins 10 ml/Chromium/ Copper/Manganese/ Seleni/Zn 1 ml/ Insulin Human Regular 15 unit/ Total Parenteral Nutrition/Amino Acids/Dextrose/ Fat Emulsion Intravenous 1,680 ml @ 70 mls/hr TPN CONT IV Last administered on 10/26/19at 21:51; Start 10/26/19 at 22:00; Stop 10/27/19 at 21:59; Status DC Sodium Chloride 90 meq/Potassium Chloride 30 meq/ Potassium Acetate 30 meq/Magnesium Sulfate 15 meq/ Multivitamins 10 ml/Chromium/ Copper/Manganese/ Seleni/Zn 1 ml/ Insulin Human Regular 15 unit/ Total Parenteral Nutrition/Amino Acids/Dextrose/ Fat Emulsion Intravenous 1,680 ml @ 70 mls/hr TPN CONT IV Last administered on 10/27/19at 22:38; Start 10/27/19 at 22:00; Stop 10/28/19 at 21:59; Status DC Fentanyl Citrate 30 ml @ 0 mls/hr CONT PRN IV SEE I/O RECORD; Start 10/27/19 at 17:30 Fentanyl (Duragesic 12mcg/ Hr Patch) 1 patch Q3DAYS TD Last administered on 11/12/19at 09:09; Start 10/28/19 at 09:00 Sodium Chloride 90 meq/Potassium Chloride 30 meq/ Potassium Acetate 30 meq/Magnesium Sulfate 15 meq/ Multivitamins 10 ml/Chromium/ Copper/Manganese/ Seleni/Zn 1 ml/ Insulin Human Regular 15 unit/ Total Parenteral Nutrition/Amino Acids/Dextrose/ Fat Emulsion Intravenous 1,680 ml @ 70 mls/hr TPN CONT IV Last administered on 10/28/19at 21:59; Start 10/28/19 at 22:00; Stop 10/29/19 at 21:59; Status DC Sodium Chloride 90 meq/Potassium Chloride 30 meq/ Potassium Acetate 30 meq/Magnesium Sulfate 15 meq/ Multivitamins 10 ml/Chromium/ Copper/Manganese/ Seleni/Zn 1 ml/ Insulin Human Regular 15 unit/ Total Parenteral Nutrition/Amino Acids/Dextrose/ Fat Emulsion Intravenous 1,680 ml @ 70 mls/hr TPN CONT IV Last administered on 10/29/19at 21:35; Start 10/29/19 at 22:00; Stop 10/30/19 at 21:59; Status DC Vancomycin HCl (Vanco Per Pharmacy) 1 each PRN DAILY PRN MC SEE COMMENTS Last administered on 11/01/19at 02:46; Start 10/30/19 at 09:15; Stop 11/02/19 at 07:41; Status DC Ciprofloxacin/ Dextrose 200 ml @ 200 mls/hr Q12HR IV Last administered on 11/07/19at 21:02; Start 10/30/19 at 10:00; Stop 11/08/19 at 08:20; Status DC Vancomycin HCl 2 gm/Sodium Chloride 500 ml @ 250 mls/hr 1X ONCE IV Last administered on 10/30/19at 10:34; Start 10/30/19 at 10:00; Stop 10/30/19 at 11:59; Status DC Sodium Chloride 90 meq/Potassium Chloride 30 meq/ Potassium Acetate 30 meq/Magnesium Sulfate 15 meq/ Multivitamins 10 ml/Chromium/ Copper/Manganese/ Seleni/Zn 1 ml/ Insulin Human Regular 15 unit/ Total Parenteral Nutrition/Amino Acids/Dextrose/ Fat Emulsion Intravenous 1,680 ml @ 70 mls/hr TPN CONT IV Last administered on 10/30/19at 22:02; Start 10/30/19 at 22:00; Stop 10/31/19 at 21:59; Status DC Diphenhydramine HCl (Benadryl) 25 mg 1X ONCE IVP Last administered on 10/30/19at 14:26; Start 10/30/19 at 14:30; Stop 10/30/19 at 14:31; Status DC Vancomycin HCl 1.5 gm/Sodium Chloride 500 ml @ 250 mls/hr Q8H IV Last admin istered on 10/31/19at 03:08; Start 10/30/19 at 18:30; Stop 10/31/19 at 12:24; Status DC Vancomycin HCl (Vancomycin Trough Level) 1 each 1X ONCE MC Last administered on 10/31/19at 10:00; Start 10/31/19 at 10:00; Stop 10/31/19 at 10:01; Status DC Sodium Chloride 90 meq/Potassium Chloride 30 meq/ Potassium Acetate 30 meq/Magnesium Sulfate 15 meq/ Multivitamins 10 ml/Chromium/ Copper/Manganese/ Seleni/Zn 1 ml/ Insulin Human Regular 15 unit/ Total Parenteral Nutrition/Amino Acids/Dextrose/ Fat Emulsion Intravenous 1,680 ml @ 70 mls/hr TPN CONT IV Last administered on 10/31/19at 22:13; Start 10/31/19 at 22:00; Stop 11/01/19 at 21:59; Status DC Vancomycin HCl (Vancomycin Random Level) 1 each 1X ONCE MC Last administered on 11/01/19at 01:00; Start 11/01/19 at 01:00; Stop 11/01/19 at 01:01; Status DC Vancomycin HCl 1.5 gm/Sodium Chloride 500 ml @ 250 mls/hr Q12H IV Last administered on 11/01/19at 22:07; Start 11/01/19 at 10:00; Stop 11/02/19 at 07:41; Status DC Vancomycin HCl (Vancomycin Trough Level) 1 each 1X ONCE MC ; Start 11/02/19 at 09:30; Stop 11/02/19 at 09:31; Status Cancel Sodium Chloride 90 meq/Potassium Chloride 30 meq/ Potassium Acetate 30 meq/Magnesium Sulfate 15 meq/ Multivitamins 10 ml/Chromium/ Copper/Manganese/ Seleni/Zn 1 ml/ Insulin Human Regular 15 unit/ Total Parenteral Nutrition/Amino Acids/Dextrose/ Fat Emulsion Intravenous 1,680 ml @ 70 mls/hr TPN CONT IV Last administered on 11/01/19at 22:08; Start 11/01/19 at 22:00; Stop 11/02/19 at 21:59; Status DC Alteplase, Recombinant (Cathflo For Central Catheter Clearance) 1 mg 1X ONCE INT CAT Last administered on 11/01/19at 11:49; Start 11/01/19 at 11:00; Stop at 11:01; Status DC Daptomycin 500 mg/ Sodium Chloride 50 ml @ 100 mls/hr Q24H IV Last administered on 11/11/19at 08:25; Start 11/02/19 at 09:00; Stop 11/11/19 at 08:38; Status DC Sodium Chloride 90 meq/Potassium Chloride 30 meq/ Potassium Acetate 30 meq/Magnesium Sulfate 15 meq/ Multivitamins 10 ml/Chromium/ Copper/Manganese/ Seleni/Zn 1 ml/ Insulin Human Regular 15 unit/ Total Parenteral Nutrition/Amino Acids/Dextrose/ Fat Emulsion Intravenous 1,680 ml @ 70 mls/hr TPN CONT IV Last administered on 11/02/19at 22:55; Start 11/02/19 at 22:00; Stop 11/03/19 at 21:59; Status DC Sodium Chloride 90 meq/Potassium Chloride 30 meq/ Potassium Acetate 30 meq/Magnesium Sulfate 15 meq/ Multivitamins 10 ml/Chromium/ Copper/Manganese/ Seleni/Zn 1 ml/ Insulin Human Regular 15 unit/ Total Parenteral Nutrition/Amino Acids/Dextrose/ Fat Emulsion Intravenous 1,680 ml @ 70 mls/hr TPN CONT IV Last administered on 11/03/19at 22:06; Start 11/03/19 at 22:00; Stop 11/04/19 at 21:59; Status DC Diphenhydramine HCl (Benadryl) 50 mg STK-MED ONCE .ROUTE ; Start 11/03/19 at 18:34; Stop 11/03/19 at 18:35; Status DC Diphenhydramine HCl (Benadryl) 25 mg 1X ONCE IM ; Start 11/03/19 at 18:45; Stop 11/03/19 at 18:46; Status DC Diphenhydramine HCl (Benadryl) 25 mg 1X ONCE IVP Last administered on 11/03/19at 18:56; Start 11/03/19 at 19:00; Stop 11/03/19 at 19:01; Status DC Alprazolam (Xanax) 0.5 mg PRN TID PRN PO ANXIETY / AGITATION Last administered on 11/10/19at 11:49; Start 11/04/19 at 08:00; Stop 11/10/19 at 15:54; Status DC Sodium Chloride 110 meq/Potassium Chloride 30 meq/ Potassium Acetate 30 meq/Magnesium Sulfate 15 meq/ Multivitamins 10 ml/Chromium/ Copper/Manganese/ Seleni/Zn 1 ml/ Insulin Human Regular 15 unit/ Total Parenteral Nutrition/Amino Acids/Dextrose/ Fat Emulsion Intravenous 1,680 ml @ 70 mls/hr TPN CONT IV Last administered on 11/04/19at 21:21; Start 11/04/19 at 22:00; Stop 11/05/19 at 21:59; Status DC Sodium Chloride 110 meq/Potassium Chloride 30 meq/ Potassium Acetate 30 meq/Magnesium Sulfate 15 meq/ Multivitamins 10 ml/Chromium/ Copper/Manganese/ Seleni/Zn 1 ml/ Insulin Human Regular 15 unit/ Total Parenteral Nutrition/Amino Acids/Dextrose/ Fat Emulsion Intravenous 1,680 ml @ 70 mls/hr TPN CONT IV Last administered on 11/05/19at 22:01; Start 11/05/19 at 22:00; Stop 11/06/19 at 21:59; Status DC Alteplase, Recombinant (Cathflo For Central Catheter Clearance) 1 mg 1X ONCE INT CAT Last administered on 11/06/19at 08:23; Start 11/06/19 at 08:15; Stop 11/06/19 at 08:16; Status DC Sodium Chloride 110 meq/Sodium Phosphate 10 mmol/ Potassium Chloride 30 meq/ Potassium Acetate 30 meq/Magnesium Sulfate 15 meq/ Multivitamins 10 ml/Chromium/ Copper/Manganese/ Seleni/Zn 1 ml/ Insulin Human Regular 15 unit/ Total Parenteral Nutrition/Amino Acids/Dextrose/ Fat Emulsion Intravenous 1,680 ml @ 70 mls/hr TPN CONT IV Last administered on 11/06/19at 22:03; Start 11/06/19 at 22:00; Stop 11/07/19 at 21:59; Status DC Sodium Chloride 120 meq/Sodium Phosphate 10 mmol/ Potassium Chloride 30 meq/ Potassium Acetate 30 meq/Magnesium Sulfate 15 meq/ Multivitamins 10 ml/Chromium/ Copper/Manganese/ Seleni/Zn 1 ml/ Insulin Human Regular 15 unit/ Total Parentera l Nutrition/Amino Acids/Dextrose/ Fat Emulsion Intravenous 1,680 ml @ 70 mls/hr TPN CONT IV Last administered on 11/07/19at 22:08; Start 11/07/19 at 22:00; Stop 11/08/19 at 21:59; Status DC Ceftazidime/ Avibactam 2.5 gm/ Sodium Chloride 100 ml @ 50 mls/hr Q8HRS IV Last administered on 11/09/19at 05:32; Start 11/08/19 at 14:00; Stop 11/09/19 at 07:48; Status DC Alteplase, Recombinant (Cathflo For Central Catheter Clearance) 1 mg 1X ONCE INT CAT Last administered on 11/08/19at 09:30; Start 11/08/19 at 09:30; Stop 11/08/19 at 09:31; Status DC Sodium Chloride 120 meq/Sodium Phosphate 10 mmol/ Potassium Chloride 30 meq/ Potassium Acetate 30 meq/Magnesium Sulfate 15 meq/ Multivitamins 10 ml/Chromium/ Copper/Manganese/ Seleni/Zn 1 ml/ Insulin Human Regular 15 unit/ Total Parenteral Nutrition/Amino Acids/Dextrose/ Fat Emulsion Intravenous 1,680 ml @ 70 mls/hr TPN CONT IV Last administered on 11/08/19at 22:11; Start 11/08/19 at 22:00; Stop 11/09/19 at 21:59; Status DC Iohexol (Omnipaque 300 Mg/ml) 75 ml 1X ONCE IV Last administered on 11/08/19at 11:30; Start 11/08/19 at 11:30; Stop 11/08/19 at 11:31; Status DC Info (CONTRAST GIVEN -- Rx MONITORING) 1 each PRN DAILY PRN MC SEE COMMENTS; Start 11/08/19 at 11:45; Stop 11/10/19 at 11:44; Status DC Alteplase, Recombinant (Cathflo For Central Catheter Clearance) 1 mg 1X ONCE INT CAT Last administered on 11/08/19at 12:17; Start 11/08/19 at 12:00; Stop 11/08/19 at 12:01; Status DC Cefepime HCl (Maxipime) 2 gm Q12HR IVP Last administered on 11/09/19at 20:53; Start 11/09/19 at 09:00; Stop 11/10/19 at 07:30; Status DC Sodium Chloride 120 meq/Sodium Phosphate 10 mmol/ Potassium Chloride 30 meq/ Potassium Acetate 30 meq/Magnesium Sulfate 15 meq/ Multivitamins 10 ml/Chromium/ Copper/Manganese/ Seleni/Zn 1 ml/ Insulin Human Regular 15 unit/ Total Parenteral Nutrition/Amino Acids/Dextrose/ Fat Emulsion Intravenous 1,680 ml @ 70 mls/hr TPN CONT IV Last administered on 11/09/19at 21:25; Start 11/09/19 at 22:00; Stop 11/10/19 at 21:59; Status DC Ceftazidime/ Avibactam 2.5 gm/ Sodium Chloride 250 ml @ 125 mls/hr Q8HRS IV Last administered on 11/12/19at 05:35; Start 11/10/19 at 08:00 Sodium Chloride 120 meq/Sodium Phosphate 10 mmol/ Potassium Chloride 30 meq/ Potassium Acetate 30 meq/Magnesium Sulfate 15 meq/ Multivitamins 10 ml/Chromium/ Copper/Manganese/ Seleni/Zn 1 ml/ Insulin Human Regular 15 unit/ Total Parenteral Nutrition/Amino Acids/Dextrose/ Fat Emulsion Intravenous 1,680 ml @ 70 mls/hr TPN CONT IV Last administered on 11/10/19at 22:35; Start 11/10/19 at 22:00; Stop 11/11/19 at 21:59; Status DC Alprazolam (Xanax) 0.5 mg PRN QID PRN PO ANXIETY / AGITATION Last administered on 11/12/19at 00:57; Start 11/10/19 at 16:00 Acetaminophen/ Hydrocodone Bitart (Lortab 5/325) 1 tab PRN Q4HRS PRN PO PAIN Last administered on 11/11/19at 19:34; Start 11/10/19 at 16:00 Sodium Chloride 120 meq/Sodium Phosphate 10 mmol/ Potassium Chloride 30 meq/ Potassium Acetate 30 meq/Magnesium Sulfate 15 meq/ Multivitamins 10 ml/Chromium/ Copper/Manganese/ Seleni/Zn 1 ml/ Insulin Human Regular 15 unit/ Total Parenteral Nutrition/Amino Acids/Dextrose/ Fat Emulsion Intravenous 1,680 ml @ 70 mls/hr TPN CONT IV Last administered on 11/11/19at 21:50; Start 11/11/19 at 22:00; Stop 11/12/19 at 21:59 Active Scripts Active Reported Bisoprolol Fumarate 5 Mg Tablet 10 Mg PO DAILY Vitals/I & O Vital Sign - Last 24 Hours 7/24/20 7/24/20 7/24/20 7/24/20 09:52 11:26 12:00 12:40 Temp 97.9 97.9 Pulse 125 Resp 36 36 38 B/P (MAP) 124/94 (104) Pulse Ox 97 98 96 O2 Delivery Room Air Nasal Cannula Room Air Room Air O2 Flow Rate 2.0 11/11/19 11/11/19 11/11/19 11/11/19 13:05 14:08 16:00 16:36 Temp 98.1 98.1 Pulse 131 Resp 32 28 38 B/P (MAP) 128/77 (94) Pulse Ox 97 98 96 97 O2 Delivery Room Air Room Air Room Air Nasal Cannula O2 Flow Rate 2.0 11/11/19 11/11/19 11/11/19 11/11/19 19:34 19:38 19:40 20:29 Temp 100.0 100.0 Pulse 134 Resp 32 B/P (MAP) 146/87 (106) Pulse Ox 98 98 97 O2 Delivery Room Air Room Air Nasal Cannula O2 Flow Rate 2.0 11/11/19 11/11/19 11/11/19 11/12/19 20:32 20:41 22:58 02:39 Temp 98.2 98.1 98.2 98.1 Pulse 119 137 Resp 20 22 B/P (MAP) 136/64 (88) 146/80 (102) Pulse Ox 97 100 100 96 O2 Delivery Nasal Cannula Nasal Cannula Nasal Cannula Nasal Cannula O2 Flow Rate 2.0 2.0 2.0 2.0 11/12/19 11/12/19 11/12/19 11/12/19 03:08 03:45 04:07 04:40 Pulse 138 Resp 28 32 B/P (MAP) 146/80 Pulse Ox 97 96 98 O2 Delivery Nasal Cannula Nasal Cannula Nasal Cannula O2 Flow Rate 2.0 2.0 2.0 11/12/19 11/12/19 11/12/19 07:00 08:58 09:09 Temp 97.8 97.8 Pulse 131 B/P (MAP) 136/72 (93) Pulse Ox 95 93 97 O2 Delivery Room Air Nasal Cannula Room Air O2 Flow Rate 2.0 2.0 2.0 Intake and Output 11/11/19 11/11/19 11/12/19 15:00 23:00 07:00 Intake Total 475 ml 1155 ml Output Total 680 ml 505 ml 600 ml Balance -205 ml 650 ml -600 ml Justicifation of Admission Dx: Justifications for Admission: Justification of Admission Dx: Yes CARIN FERNANDEZ MD Nov 12, 2019 09:34
--- NOTE | 2019-11-12 10:31 | PDOC ---
PULMONARY PROGRESS NOTES Subjective Patient with no distress Vitals Vital Signs Date Time Temp Pulse Resp B/P (MAP) Pulse Ox O2 Delivery O2 Flow Rate FiO2 11/12/19 09:44 139 147/73 11/12/19 09:09 97 Room Air 2.0 11/12/19 07:00 97.8 97.8 11/12/19 04:40 32 ROS: No Nausea, No Chest Pain, No Increase Cough HEENT: Other (trach site ok) Lungs: Crackles Cardiovascular: S1, S2 Abdomen: Soft, Non-tender, Other (multiple KAYLIN drains ) Neuro Exam: Alert Extremities: Other (+1 BLE edema) Skin: Warm Labs Laboratory Tests Test 11/10/19 12:26 11/10/19 18:12 11/11/19 00:02 11/11/19 06:00 Glucose (Fingerstick) 143 mg/dL (70-99) 126 mg/dL (70-99) 138 mg/dL (70-99) White Blood Count 16.9 x10^3/uL (4.0-11.0) Red Blood Count 2.66 x10^6/uL (3.50-5.40) Hemoglobin 7.9 g/dL (12.0-15.5) Hematocrit 24.3 % (36.0-47.0) Mean Corpuscular Volume 91 fL (79-100) Mean Corpuscular Hemoglobin 30 pg (25-35) Mean Corpuscular Hemoglobin Concent 32 g/dL (31-37) Red Cell Distribution Width 16.7 % (11.5-14.5) Platelet Count 569 x10^3/uL (140-400) Neutrophils (%) (Auto) 83 % (31-73) Lymphocytes (%) (Auto) 9 % (24-48) Monocytes (%) (Auto) 6 % (0-9) Eosinophils (%) (Auto) 2 % (0-3) Basophils (%) (Auto) 1 % (0-3) Neutrophils # (Auto) 14.1 x10^3/uL (1.8-7.7) Lymphocytes # (Auto) 1.5 x10^3/uL (1.0-4.8) Monocytes # (Auto) 1.0 x10^3/uL (0.0-1.1) Eosinophils # (Auto) 0.3 x10^3/uL (0.0-0.7) Basophils # (Auto) 0.1 x10^3/uL (0.0-0.2) Test 11/11/19 06:21 11/11/19 07:30 11/11/19 12:24 11/11/19 17:23 Glucose (Fingerstick) 150 mg/dL (70-99) 156 mg/dL (70-99) 123 mg/dL (70-99) Sodium Level 136 mmol/L (136-145) Potassium Level 4.2 mmol/L (3.5-5.1) Chloride Level 103 mmol/L (98-107) Carbon Dioxide Level 26 mmol/L (21-32) Anion Gap 7 (6-14) Blood Urea Nitrogen 13 mg/dL (7-20) Creatinine 0.6 mg/dL (0.6-1.0) Estimated GFR (Cockcroft-Gault) 106.3 BUN/Creatinine Ratio 22 (6-20) Glucose Level 125 mg/dL (70-99) Calcium Level 9.4 mg/dL (8.5-10.1) Total Bilirubin 0.5 mg/dL (0.2-1.0) Aspartate Amino Transf (AST/SGOT) 16 U/L (15-37) Alanine Aminotransferase (ALT/SGPT) 15 U/L (14-59) Alkaline Phosphatase 129 U/L (46-116) Total Protein 5.1 g/dL (6.4-8.2) Albumin 1.1 g/dL (3.4-5.0) Albumin/Globulin Ratio 0.3 (1.0-1.7) Test 11/11/19 23:05 11/12/19 04:45 11/12/19 05:48 Glucose (Fingerstick) 138 mg/dL (70-99) 138 mg/dL (70-99) Sodium Level 137 mmol/L (136-145) Potassium Level 4.3 mmol/L (3.5-5.1) Chloride Level 103 mmol/L (98-107) Carbon Dioxide Level 27 mmol/L (21-32) Anion Gap 7 (6-14) Blood Urea Nitrogen 15 mg/dL (7-20) Creatinine 0.6 mg/dL (0.6-1.0) Estimated GFR (Cockcroft-Gault) 106.3 Glucose Level 140 mg/dL (70-99) Calcium Level 10.0 mg/dL (8.5-10.1) Phosphorus Level 4.2 mg/dL (2.6-4.7) Laboratory Tests Test 11/11/19 12:24 11/11/19 17:23 11/11/19 23:05 11/12/19 04:45 Glucose (Fingerstick) 156 mg/dL (70-99) 123 mg/dL (70-99) 138 mg/dL (70-99) Sodium Level 137 mmol/L (136-145) Potassium Level 4.3 mmol/L (3.5-5.1) Chloride Level 103 mmol/L (98-107) Carbon Dioxide Level 27 mmol/L (21-32) Anion Gap 7 (6-14) Blood Urea Nitrogen 15 mg/dL (-) Creatinine 0.6 mg/dL (0.6-1.0) Estimated GFR (Cockcroft-Gault) 106.3 Glucose Level 140 mg/dL (70-99) Calcium Level 10.0 mg/dL (8.5-10.1) Phosphorus Level 4.2 mg/dL (2.6-4.7) Test 11/12/19 05:48 Glucose (Fingerstick) 138 mg/dL (70-99) Medications Active Scripts Medications Dose Route/Sig Max Daily Dose Days Date Category Bisoprolol Fumarate 5 Mg Tablet 10 Mg PO DAILY 07/04/[address] reviewed 10/30/19, Decreased left-sided effusion after catheter placement. The right-sided effusion has increased as has atelectasis. There has been exchange or placement of multiple drainage tubes and a gastrojejunostomy tube. Both collections are smaller. No significant new abdominal fluid collection is seen. The jejunal component of the gastrojejunostomy tube appears to be looped in the proximal small bowel. ct abdomen /pelvis 09/23 1. Removal of the percutaneous pigtail drainage catheters since the prior exam. Sequela of pancreatitis with extensive pseudocysts again demonstrated, the right-sided collections are slightly larger since the prior exam, the left-sided collections are stable. See above. 2. Moderate to large left pleural effusion with atelectasis and collapse of most of the left lower lobe, stable. Small right pleural effusion is stable. 3. Gallstone. ct chest 10/02 reviewed GRAM NEG COCCOBACILLI:MANY SQUAMOUS EPI CELL:RARE PMN (WBCs):FEW Unless otherwise specified, Testing Performed by: [facility] [address] [place] [address] For Inquires, the Physician may contact the Microbiology department at [phone] RESPIRATORY CULTURE Final Final MANY GRAM NEGATIVE RODS on 10/03/19 at 1107 FINAL ID= [[email or web address]] MICRO CHARGES PSEUDOMONAS AERUGINOSA ANTIMICROBIAL SUSCEPTIBILITY Final Comment NEG ALEXANDRA 56 PSEUDOMONAS AERUGINOSA ANTIBIOTIC RESULT INTERPRETATION AMIKACIN <=16 S AZTREONAM <=4 S CEFTAZIDIME <=1 S CIPROFLOXACIN <=0.25 S CEFEPIME <=2 S CEFTAZIDIME/AVIBACTAM <=4 S GENTAMICIN <=2 S LEVOFLOXACIN <=0.5 S Impression . IMPRESSION: 1. Acute hypoxemic respiratory failure secondary to ARDS status post trach, developed anemia 09/24, blood drainage from RLQ abdomen drain site, and surrounding firmness / developed septic shock 09/24 from abdomen source, required levo / s/p 3 new drains 09/24 with brown color drainage, S/P Exp. 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 parapsilosis & PSAE (I-merrem/ceftazidime/AZT/cefepime)) Leucocytosis -trending upward Fever Acute gallstone pancreatitis with persistent necrosis - 07/27. CT A/P Increased ascites. 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 status post KAYLIN drain placement; C. parapsilosis. s/p drain 08/23 + yeast & high amylase; s/p additional drain on 08/25. Drains removed. -08/23. fluid devyn parapsilosis fluid, amylase high - 09/23 showed multiple pseudocysts, slight larger on the right. s/p drains x 3, 09/24. + PSAE (MDRO-R Cefepime, Zosyn ALEXANDRA < 64) and yeast, -09/24 s/p drain replacement x 3; fluid cult PSAE (MDRO), yeast; treated -10/29 CT A/P shows smaller fluid collections. -722 CT abdomen and pelvis drains in place Ascites s/p paracentesis 08/02 & 08/23. C. parapsilosis Cholelithiasis with thickening of the gallbladder wall. JUANA, Hyperkalemia, Metabolic acidosis off dialysis Acute hypoxic resp failure. trach/vent. sputum 09/30 + PSAE (I merrem) ; sputum culture November 05+ for PSAE R Merrem, sensitive to cefepime Pleural effusion status post CTS left side Abdominal fluid culture MDRO Pseudomonas, yeast Sputum culture positive 11/05 for MDRO Pseudomonas Chest tube fluid positive for 11/07 Devyn Parapsilosis S/P Exploratory laparotomy, lysis of adhesions, subtotal cholecystectomy with cholangiogram, gastrojejunostomy tube placement, pancreatic necrosectomy leukocytosis- improving 11/09 fluid from the chest tube GRAM STAIN Final Final NO ORGANISMS SEEN. SQUAMOUS EPI CELL:NOT APPLICABLE PMN (WBCs):RARE Unless otherwise specified, Testing Performed by: [address] [id number] For Inquires, the Physician may contact the Microbiology department at [phone] ANAEROBIC-AEROBIC CULTURE Preliminary Preliminary No Growth on 11/09/19 at 0957 Unless otherwise specified, Testing Performed by: [address] [address] For Inquires, the Physician may contact the Microbiology department at [phone] Antibiotics per ID, since 11/09 Restart Avycaz DC cefepime cont micafungin and dapto Plan . no sig drainage on ct left side, no sig effusion chest tube REMOVED 11/10 Transfuse as needed Antibiotics per ID changes made,Change Avycaz to cefepime cont micafungin and dapto Discussed with RN afebrile this morning Monitor H&H Trach shield, as tolerated, on room air Up to chair, pt/ot Follow culture Follow surgery input DVT GI prophylaxis f/u BC /resp cultures Continue TPN for nutrition support DVT/GI PPX VINAYAK LANDRUM MD Nov 12, 2019 10:31
[2019-11-12 11:00] VITALS: BP 141/84
[2019-11-12] MEDS: TPN PER PHARMACY MC PRN (12:28)
--- NOTE | 2019-11-12 12:29 | NUR ---
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, 8 inches Weight: 82.1 kg Current diet: NPO LABS: Sodium: 137 Potassium: 4.3 Chloride: 103 Calcium: 10.0 Corrected Calcium: 12.32 Magnesium: 1.9 (11/09) CO2: 27 SCr: 0.6 Glucose: 138-145 Albumin: 1.1 AST: 16 ALT: 15 TPN FORMULA: TPN TYPE: Central Continuous AMINO ACIDS: 95 gm DEXTROSE: 275 gm LIPIDS: 30 gm SODIUM CHLORIDE: 120 mEq SODIUM ACETATE: - mEq SODIUM PHOSPHATE: 10 mmol POTASSIUM CHLORIDE: 30 mEq POTASSIUM ACETATE: 30 mEq POTASSIUM PHOSPHATE: - mmol MAGNESIUM: 15 mEq CALCIUM: - mEq INSULIN: 15 units MULTIPLE VITAMIN: 10 ml TRACE ELEMENTS: 1 ml ml(s) TPN PLAN: Labs stable. No changes to TPN. Next labs Thursday due to stability. R: Continue TPN ABOVE. Will monitor electrolytes, glucose, and tolerance to TPN. [facility], 11/12/19 [id number]
[2019-11-12] MEDS: IV NORMAL SALINE 1000ML BAG 1,000 ML IV SCH (14:33)
[2019-11-12 15:00] VITALS: BP 122/79
[2019-11-12 19:00] VITALS: BP 136/76
[2019-11-12] MEDS: ACETAMINOPHEN 650 MG SUPP.RECT. PR PRN (19:52)
[2019-11-12] MEDS ORDERED: AMINO ACID IV SCH ×11 (22:00)
[2019-11-12] MEDS ORDERED: TOTAL PARENTERAL NUTRITION IV SCH ×11 (22:00)
[2019-11-12] MEDS ORDERED: [UNRECOGNIZED DRUG - OTHER] IV SCH ×11 (22:00)
[2019-11-12] MEDS ORDERED: DEXTROSE 70% IV SCH ×11 (22:00)
[2019-11-12 23:00] VITALS: BP 113/65
[2019-11-13] MEDS: IPRATRPIUM/ALBUTEROL 0.5/2.5MG 3 ML NEBU. NEB SCH ×6 (00:17→20:11)
[2019-11-13 03:00] VITALS: BP 124/72
[2019-11-13] MEDS: fentaNYL PF VIAL 100 MCG/2 ML VIAL IV PRN ×4 (04:17→20:35)
[2019-11-13] MEDS: INSULIN LISPRO 300 UNITS/3 ML VIAL. SQ SCH ×4 (06:00→17:40)
[2019-11-13 06:18] LABS: BASO % 0 % (0-3); EOS # 0.4 x10^3/uL (0.0-0.7); EOS % 3 % (0-3); HEMATOCRIT 23.8 % (36.0-47.0); HEMOGLOBIN 7.7 g/dL (12.0-15.5); LYMPH # 1.2 x10^3/uL (1.0-4.8); LYMPH % 8 % (24-48); MEAN CORPUSCULAR HEMOGLOBIN 28 pg (25-35); MEAN CORPUSCULAR HGB CONC 33 g/dL (31-37); MONO % 7 % (0-9); NEUT # 12.2 x10^3/uL (1.8-7.7); NEUT % 83 % (31-73); PLATELET COUNT 563 x10^3/uL (140-400); RED BLOOD COUNT 2.78 x10^6/uL (3.50-5.40); WHITE BLOOD COUNT 14.7 x10^3/uL (4.0-11.0)
[2019-11-13] MEDS: CEFTAZIDIME/AVIBACTAM 2.5 GM in IV NORMAL SALINE 250ML 250 ML IV SCH ×3 (06:19→21:51)
[2019-11-13 06:21] LABS: MEAN CORPUSCULAR VOLUME 86 fL (79-100)
[2019-11-13 06:50] LABS: ALBUMIN 1.1 g/dL (3.4-5.0); ALBUMIN/GLOBULIN RATIO 0.2 (1.0-1.7); CALCIUM 10.3 mg/dL (8.5-10.1); CREATININE 0.5 mg/dL (0.6-1.0); GFR 131.1; POTASSIUM 4.4 mmol/L (3.5-5.1); TOTAL BILIRUBIN 0.4 mg/dL (0.2-1.0); TOTAL PROTEIN 5.9 g/dL (6.4-8.2)
--- NOTE | 2019-11-13 06:56 | PDOC ---
Infectious Disease Note Subjective: Subjective Pt resting quietly Febrile again, T-max 102 On 2 L O2 by nasal cannula TPN Vital Signs: Vital Signs Vital Signs Date Time Temp Pulse Resp B/P (MAP) Pulse Ox O2 Delivery O2 Flow Rate FiO2 11/13/19 04:47 26 93 Nasal Cannula 2.0 11/13/19 03:00 98.7 123 124/72 (89) 98.7 Physical Exam: PHYSICAL EXAM GENERAL: pt in bed, appears weak HEENT: Pupils equal, oral cavity dry. NGT out NECK: Tracheostomy LUNGS: Diminished aeration bases, CT on left HEART: S1, S2, tachy 110s ABDOMEN: Distended, bowel sounds hypoactive, soft, goyal x 2, KAYLIN drains, G-J tube : Lind in place EXTREMITIES: Trace generalized edema, no cyanosis. RADHA hose bilaterally, SKIN: warm touch. No signs of rash. LUE-PICC without signs of complications Medications: Inpatient Meds: Current Medications Medications (Trade) Dose Ordered Sig/Yvon Start Time Stop Time Status Last Admin Dose Admin Acetaminophen (Tylenol Supp) 650 mg PRN Q6HRS PRN 07/12/19 10:30 11/12/19 19:52 650 MG Acetaminophen (Tylenol) 650 mg PRN Q6HRS PRN 07/09/19 03:36 08/31/19 10:25 DC 08/04/19 19:56 650 MG Acetaminophen/ Hydrocodone Bitart (Lortab 5/325) 1 tab PRN Q4HRS PRN 11/10/19 16:00 11/11/19 19:34 1 TAB Acetylcysteine (Mucomyst 20% Resp Treatment) 600 mg RTBID 10/15/19 12:00 11/12/19 20:16 600 MG Albumin Human 500 ml @ 125 mls/hr PRN Q1HR PRN 10/18/19 15:45 Albuterol Sulfate (Ventolin Neb Soln) 2.5 mg 1X ONCE 07/05/19 22:30 07/05/19 22:31 DC 07/06/19 00:56 2.5 MG Albuterol/ Ipratropium (Duoneb) 3 ml Q4HRS 10/01/19 08:00 11/13/19 03:43 3 ML Alprazolam (Xanax) 0.5 mg PRN QID PRN 7/23/20 16:00 11/12/19 00:57 0.5 MG Alteplase, Recombinant (Cathflo For Central Catheter Clearance) 1 mg 1X ONCE 11/08/19 12:00 11/08/19 12:01 DC 11/08/19 12:17 1 MG Alteplase, Recombinant 4 mg/ Sodium Chloride 20 ml @ 20 mls/hr 1X ONCE 10/05/19 10:00 10/05/19 10:59 DC 10/05/19 10:09 20 MLS/HR Amino Acids/ Glycerin/ Electrolytes 1,000 ml @ 75 mls/hr [id number] 08/08/19 21:15 UNV Artificial Tears (Artificial Tears) 1 drop PRN Q15MIN PRN 08/17/19 05:30 10/11/19 21:17 1 DROP Atenolol (Tenormin) 100 mg DAILY 07/05/19 09:00 07/04/19 20:08 DC Atropine Sulfate (ATROPINE 0.5mg SYRINGE) 0.5 mg PRN Q5MIN PRN 07/21/19 08:15 Barium Sulfate (Varibar Thin Liquid Apple) 148 gm 1X ONCE 09/13/19 11:45 09/13/19 11:49 DC Benzocaine (Hurricaine One) 1 spray 1X ONCE 07/08/19 14:30 07/08/19 14:31 DC 07/08/19 16:38 1 SPRAY Bisacodyl (Dulcolax Supp) 10 mg STK-MED ONCE 08/15/19 10:59 08/15/19 10:59 DC Bumetanide (Bumex) 2 mg DAILY 08/26/19 10:00 09/05/19 17:15 DC 09/05/19 08:07 2 MG Bupivacaine HCl/ Epinephrine Bitart (Sensorcain-Epi 0.5%-1:512052 Mpf) 30 ml STK-MED ONCE 10/18/19 08:34 10/18/19 08:35 DC Calcium Carbonate/ Glycine (Tums) 500 mg PRN AFTMEALHC PRN 07/06/19 17:45 08/31/19 10:25 DC Calcium Chloride 1000 mg/Sodium Chloride 110 ml @ 220 mls/hr 1X ONCE 07/05/19 22:30 07/05/19 22:59 DC 07/05/19 22:11 220 MLS/HR Calcium Chloride 3000 mg/Sodium Chloride 1,030 ml @ 50 mls/hr [id number] 07/07/19 08:00 07/09/19 15:23 DC 07/09/19 02:17 50 MLS/HR Calcium Gluconate (Calcium Gluconate) 2,000 mg 1X ONCE 07/07/19 02:15 07/07/19 02:16 DC 07/07/19 02:19 2,000 MG Calcium Gluconate 1000 mg/Sodium Chloride 110 ml @ 220 mls/hr 1X ONCE 07/06/19 03:30 07/06/19 03:59 DC 07/06/19 03:21 220 MLS/HR Calcium Gluconate 2000 mg/Sodium Chloride 120 ml @ 220 mls/hr 1X ONCE 07/06/19 07:30 07/06/19 08:02 DC 07/06/19 09:05 220 MLS/HR Cefepime HCl (Maxipime) 2 gm Q12HR 11/09/19 09:00 11/10/19 07:30 DC 11/09/19 20:53 2 GM Ceftazidime/ Avibactam 2.5 gm/ Sodium Chloride 250 ml @ 125 mls/hr Q8HRS 11/10/19 08:00 11/13/19 06:19 125 MLS/HR Cellulose (Surgicel Fibrillar 1x2) 1 each STK-MED ONCE 07/25/19 11:00 07/25/19 11:01 DC Cellulose (Surgicel Hemostat 2x14) 1 each STK-MED ONCE 08/15/19 10:58 08/15/19 10:59 DC Cellulose (Surgicel Hemostat 4x8) 1 each STK-MED ONCE 08/15/19 10:58 08/15/19 10:59 DC Chlorhexidine Gluconate (Peridex) 15 ml BID 10/01/19 09:00 10/01/19 07:58 DC Ciprofloxacin/ Dextrose 200 ml @ 200 mls/hr Q12HR 10/30/19 10:00 11/08/19 08:20 DC 11/07/19 21:02 200 MLS/HR Cyclobenzaprine HCl (Flexeril) 10 mg PRN Q6HRS PRN 08/18/19 10:45 7/10/20 19:12 10 MG Daptomycin 410 mg/ Sodium Chloride 50 ml @ 100 mls/hr Q24H 09/25/19 14:00 09/28/19 08:30 DC 09/27/19 13:33 100 MLS/HR Daptomycin 430 mg/ Sodium Chloride 50 ml @ 100 mls/hr Q24H 08/13/19 13:00 08/18/19 20:58 DC 08/18/19 13:00 100 MLS/HR Daptomycin 450 mg/ Sodium Chloride 50 ml @ 100 mls/hr Q24H 09/04/19 09:00 09/08/19 08:30 DC 09/07/19 09:25 100 MLS/HR Daptomycin 485 mg/ Sodium Chloride 50 ml @ 100 mls/hr Q24H 08/22/19 11:00 08/30/19 07:44 DC 08/29/19 13:10 100 MLS/HR Daptomycin 500 mg/ Sodium Chloride 50 ml @ 100 mls/hr Q24H 11/02/19 09:00 11/11/19 08:38 DC 11/11/19 08:25 100 MLS/HR Desflurane (Suprane) 90 ml STK-MED ONCE 10/18/19 10:18 10/18/19 10:19 DC Dexamethasone Sodium Phosphate (Decadron) 4 mg STK-MED ONCE 08/15/19 10:56 08/15/19 10:57 DC Dexmedetomidine HCl 400 mcg/ Sodium Chloride 100 ml @ 0 mls/hr CONT PRN 07/21/19 08:15 09/17/19 18:31 DC 09/17/19 12:57 8 MLS/HR Dextrose (Dextrose 50%-Water Syringe) 12.5 gm PRN Q15MIN PRN 07/04/19 09:30 Digoxin (Lanoxin) 125 mcg 1X ONCE 07/07/19 18:00 07/07/19 18:01 DC 07/07/19 17:10 125 MCG Diphenhydramine HCl (Benadryl) 25 mg 1X ONCE 11/03/19 19:00 11/03/19 19:01 DC 11/03/19 18:56 25 MG Duloxetine HCl (Cymbalta) 30 mg DAILY 08/28/19 14:00 08/31/19 10:25 DC 08/29/19 09:48 30 MG Enoxaparin Sodium (Lovenox 100mg Syringe) 100 mg Q12HR 08/09/19 21:00 UNV Enoxaparin Sodium (Lovenox 40mg Syringe) 40 mg Q24H 10/19/19 08:00 11/12/19 07:56 40 MG Ephedrine Sulfate (ePHEDrine PF IN SALINE SYRINGE) 50 mg STK-MED ONCE 10/18/19 14:45 10/18/19 14:45 DC Etomidate (Amidate) 8 mg 1X ONCE 07/11/19 08:30 07/11/19 08:31 DC 07/11/19 08:33 8 MG Fentanyl (Duragesic 12mcg/ Hr Patch) 1 patch Q3DAYS 10/28/19 09:00 11/12/19 09:09 1 PATCH Fentanyl (Duragesic 50mcg/ Hr Patch) 1 patch Q72H 09/22/19 21:00 10/01/19 12:00 DC 09/22/19 21:22 1 PATCH Fentanyl Citrate 30 ml @ 0 mls/hr CONT PRN 10/27/19 17:30 Fentanyl Citrate (Fentanyl 2ml Vial) 100 mcg STK-MED ONCE 10/18/19 07:44 10/18/19 07:44 DC Fentanyl Citrate (Fentanyl 5ml Vial) 250 mcg 1X ONCE 08/26/19 09:15 08/26/19 09:16 DC 08/26/19 09:30 50 MCG Flumazenil (Romazicon) 0.5 mg STK-MED ONCE 09/25/19 14:48 09/25/19 14:48 DC Fluoxetine HCl (PROzac) 20 mg QHS 09/22/19 21:00 11/12/19 21:40 20 MG Furosemide (Lasix) 40 mg 1X ONCE 10/12/19 15:30 10/12/19 15:33 DC 10/12/19 16:27 40 MG Haloperidol Lactate (Haldol Inj) 3 mg 1X ONCE 08/22/19 14:30 08/22/19 14:31 DC 08/22/19 14:37 3 MG Heparin Sodium (Porcine) (Hep Lock Adult) 500 unit STK-MED ONCE 07/26/19 09:29 07/26/19 09:30 DC Heparin Sodium (Porcine) (Heparin Sodium) 5,000 unit Q12HR 08/15/19 21:00 08/25/19 09:59 DC 08/24/19 20:57 5,000 UNIT Heparin Sodium (Porcine) 1000 unit/Sodium Chloride 1,001 ml @ 1,001 mls/hr 1X ONCE 10/18/19 06:00 10/18/19 06:59 DC Hydromorphone HCl (Dilaudid Standard [employer]) 12 mg STK-MED ONCE 08/19/19 15:50 08/30/19 11:24 DC Hydromorphone HCl (Dilaudid) 1 mg PRN Q4HRS PRN 08/22/19 19:00 09/05/19 17:10 DC 09/05/19 06:25 1 MG Info (CONTRAST GIVEN -- Rx MONITORING) 1 each PRN DAILY PRN 11/08/19 11:45 11/10/19 11:44 DC Info (Icu Electrolyte Protocol) 1 ea CONT PRN PRN 07/17/19 13:15 Info (PHARMACY MONITORING -- do not chart) 1 each PRN DAILY PRN 08/12/19 15:45 09/13/19 14:14 DC Info (Tpn Per Pharmacy) 1 each PRN DAILY PRN 07/06/19 12:30 UNV Insulin Human Lispro (HumaLOG) 0-9 UNITS Q6HRS 07/04/19 09:30 11/11/19 12:26 4 UNITS Insulin Human Regular (HumuLIN R VIAL) 5 unit 1X ONCE 07/05/19 22:30 07/05/19 22:31 DC 07/05/19 22:14 5 UNIT Iohexol (Omnipaque 240 Mg/ml) 30 ml 1X ONCE 07/18/19 11:30 07/18/19 11:33 DC 07/18/19 11:30 30 ML Iohexol (Omnipaque 300 Mg/ml) 75 ml 1X ONCE 11/08/19 11:30 11/08/19 11:31 DC 11/08/19 11:30 75 ML Iohexol (Omnipaque 350 Mg/ml) 90 ml 1X ONCE 07/04/19 03:30 07/04/19 03:31 DC 07/04/19 03:25 90 ML Ketorolac Tromethamine (Toradol 30mg Vial) 30 mg 1X ONCE 07/04/19 03:00 07/04/19 03:01 DC 07/04/19 02:54 30 MG Lidocaine HCl (Buffered Lidocaine 1%) 3 ml 1X ONCE 10/03/19 13:00 10/03/19 13:01 DC 10/03/19 13:11 12 ML Lidocaine HCl (Glydo (Lidocaine) Jelly) 1 ramu 1X ONCE 07/08/19 14:30 07/08/19 14:31 DC 07/08/19 16:38 1 RAMU Lidocaine HCl (Lidocaine 1% 20ml Vial) 20 ml 1X ONCE 09/25/19 15:00 09/25/19 15:01 DC 09/25/19 15:30 20 ML Lidocaine HCl (Lidocaine Pf 2% Vial) 5 ml STK-MED ONCE 10/18/19 07:44 10/18/19 07:44 DC Lidocaine HCl (Xylocaine-Mpf 1% 2ml Vial) 2 ml PRN 1X PRN 08/15/19 07:00 08/16/19 06:59 DC Linezolid/Dextrose 300 ml @ 300 mls/hr Q12HR 09/04/19 09:00 09/07/19 08:11 DC 09/06/19 21:08 300 MLS/HR Lorazepam (Ativan Inj) 0.25 mg PRN Q4HRS PRN 09/21/19 07:30 11/12/19 13:06 0.25 MG Magnesium Sulfate 50 ml @ 25 mls/hr 1X ONCE 10/18/19 16:30 10/18/19 18:29 DC 10/18/19 17:02 25 MLS/HR Meropenem 1 gm/ Sodium Chloride 100 ml @ 200 mls/hr Q12HR 09/25/19 21:00 10/13/19 08:56 DC 10/13/19 08:27 200 MLS/HR Meropenem 500 mg/ Sodium Chloride 50 ml @ 100 mls/hr Q6HRS 10/16/19 18:00 11/08/19 08:23 DC 11/08/19 06:15 100 MLS/HR Methylprednisolone Sodium Succinate (SOLU-Medrol 125MG VIAL) 125 mg 1X ONCE 10/01/19 06:15 10/01/19 06:16 DC 10/01/19 06:26 125 MG Metoclopramide HCl (Reglan Vial) 10 mg PRN Q3HRS PRN 08/27/19 16:45 09/01/19 04:25 10 MG Metoprolol Tartrate (Lopressor Vial) 5 mg PRN Q6HRS PRN 09/28/19 09:00 11/12/19 09:44 5 MG Metronidazole 100 ml @ 100 mls/hr Q8HRS 08/02/19 10:00 08/09/19 08:10 DC 08/09/19 06:04 100 MLS/HR Micafungin Sodium 100 mg/Dextrose 100 ml @ 100 mls/hr Q24H 10/18/19 08:30 11/12/19 07:58 100 MLS/HR Midazolam HCl (Versed) 2 mg 1X ONCE 09/25/19 15:00 09/25/19 15:01 DC 09/25/19 15:28 1 MG Midazolam HCl 100 mg/Sodium Chloride 100 ml @ 1 mls/hr CONT PRN 10/18/19 14:45 10/21/19 18:48 10 MLS/HR Midazolam HCl 50 mg/Sodium Chloride 50 ml @ 0 mls/hr CONT PRN 07/11/19 08:15 07/16/19 15:59 DC 07/14/19 22:39 7 MLS/HR Morphine Sulfate (Morphine Sulfate) 1 mg PRN Q1HR PRN 10/18/19 14:45 11/12/19 18:28 1 MG Multi-Ingred Cream/Lotion/Oil/ Oint (Artificial Tears Eye Ointment) 1 ramu PRN Q1HR PRN 07/13/19 17:30 09/21/19 14:39 DC 08/01/19 08:19 1 RAMU Naloxone HCl (Narcan) 0.4 mg PRN Q2MIN PRN 10/18/19 14:45 Norepinephrine Bitartrate 8 mg/ Dextrose 258 ml @ 13.332 mls/ hr CONT PRN 09/25/19 06:30 10/20/19 09:09 1.6 MLS/HR Ondansetron HCl (Zofran) 4 mg STK-MED ONCE 10/18/19 13:33 10/18/19 13:33 DC Pantoprazole Sodium (PROTONIX VIAL for IV PUSH) 40 mg DAILYAC 07/04/19 11:30 11/12/19 07:56 40 MG Phenylephrine HCl (Brayden-Synephrine Inj) 10 mg STK-MED ONCE 10/18/19 13:33 10/18/19 13:33 DC Phenylephrine HCl (PHENYLEPHRINE in 0.9% NACL PF) 1 mg STK-MED ONCE 10/18/19 14:44 10/18/19 14:45 DC Piperacillin Sod/ Tazobactam Sod 3.375 gm/Sodium Chloride 50 ml @ 100 mls/hr Q6HRS 09/14/19 12:00 09/22/19 07:26 DC 09/22/19 06:10 100 MLS/HR Piperacillin Sod/ Tazobactam Sod 4.5 gm/Sodium Chloride 100 ml @ 200 mls/hr 1X ONCE 07/04/19 06:00 07/04/19 06:29 DC 07/04/19 05:44 200 MLS/HR Potassium Chloride 110 meq/ Magnesium Sulfate 20 meq/ Multivitamins 10 ml/Chromium/ Copper/Manganese/ Seleni/Zn 1 ml/ Insulin Human Regular 15 unit/ Total Parenteral Nutrition/Amino Acids/Dextrose/ Fat Emulsion Intravenous 1,800 ml @ 75 mls/hr TPN CONT 09/11/19 22:00 09/12/19 21:59 DC 09/11/19 22:48 75 MLS/HR Potassium Chloride 15 meq/ Bicarbonate Dialysis Soln w/ out KCl 5,007.5 ml @ 1,000 mls/ hr Q5H1M 07/17/19 20:00 07/21/19 13:08 DC 07/20/19 18:14 1,000 MLS/HR Potassium Chloride 20 meq/ Bicarbonate Dialysis Soln w/ out KCl 5,010 ml @ 1,000 mls/hr Q5H1M 07/13/19 16:00 07/17/19 19:59 DC 07/17/19 14:54 1,000 MLS/HR Potassium Chloride 40 meq/ Potassium Acetate 60 meq/Magnesium Sulfate 10 meq/ Multivitamins 10 ml/Chromium/ Copper/Manganese/ Seleni/Zn 1 ml/ Insulin Human Regular 20 unit/ Total Parenteral Nutrition/Amino Acids/Dextrose/ Fat Emulsion Intravenous 1,800 ml @ 75 mls/hr TPN CONT 09/22/19 22:00 09/23/19 21:59 DC 09/23/19 00:03 75 MLS/HR Potassium Chloride 70 meq/ Magnesium Sulfate 20 meq/ Multivitamins 10 ml/Chromium/ Copper/Manganese/ Seleni/Zn 1 ml/ Insulin Human Regular 15 unit/ Total Parenteral Nutrition/Amino Acids/Dextrose/ Fat Emulsion Intravenous 1,800 ml @ 75 mls/hr TPN CONT 09/16/19 22:00 09/17/19 21:59 DC 09/16/19 23:13 75 MLS/HR Potassium Chloride 75 meq/ Magnesium Sulfate 15 meq/ Multivitamins 10 ml/Chromium/ Copper/Manganese/ Seleni/Zn 0.5 ml/ Insulin Human Regular 15 unit/ Total Parenteral Nutrition/Amino Acids/Dextrose/ Fat Emulsion Intravenous 1,920 ml @ 80 mls/hr TPN CONT 08/27/19 22:00 08/28/19 21:59 DC 08/27/19 22:41 80 MLS/HR Potassium Chloride 75 meq/ Magnesium Sulfate 15 meq/Calcium Gluconate 8 meq/ Multivitamins 10 ml/Chromium/ Copper/Manganese/ Seleni/Zn 0.5 ml/ Insulin Human Regular 15 unit/ Total Parenteral Nutrition/Amino Acids/Dextrose/ Fat Emulsion Intravenous 1,920 ml @ 80 mls/hr TPN CONT 08/25/19 22:00 08/26/19 21:59 DC 08/25/19 22:28 80 MLS/HR Potassium Chloride 75 meq/ Magnesium Sulfate 15 meq/Calcium Gluconate 8 meq/ Multivitamins 10 ml/Chromium/ Copper/Manganese/ Seleni/Zn 0.5 ml/ Insulin Human Regular 20 unit/ Total Parenteral Nutrition/Amino Acids/Dextrose/ Fat Emulsion Intravenous 1,920 ml @ 80 mls/hr TPN CONT 08/24/19 22:00 08/25/19 21:59 DC 08/24/19 22:00 80 MLS/HR Potassium Chloride 75 meq/ Magnesium Sulfate 15 meq/Calcium Gluconate 8 meq/ Multivitamins 10 ml/Chromium/ Copper/Manganese/ Seleni/Zn 0.5 ml/ Insulin Human Regular 25 unit/ Total Parenteral Nutrition/Amino Acids/Dextrose/ Fat Emulsion Intravenous 1,920 ml @ 80 mls/hr TPN CONT 08/22/19 22:00 08/23/19 21:59 DC 08/22/19 23:08 80 MLS/HR Potassium Chloride 75 meq/ Magnesium Sulfate 20 meq/Calcium Gluconate 10 meq/ Multivitamins 10 ml/Chromium/ Copper/Manganese/ Seleni/Zn 0.5 ml/ Insulin Human Regular 25 unit/ Total Parenteral Nutrition/Amino Acids/Dextrose/ Fat Emulsion Intravenous 1,920 ml @ 80 mls/hr TPN CONT 08/21/19 22:00 08/22/19 21:59 DC 08/21/19 22:04 80 MLS/HR Potassium Chloride 75 meq/ Magnesium Sulfate 20 meq/Calcium Gluconate 10 meq/ Multivitamins 10 ml/Chromium/ Copper/Manganese/ Seleni/Zn 0.5 ml/ Insulin Human Regular 30 unit/ Total Parenteral Nutrition/Amino Acids/Dextrose/ Fat Emulsion Intravenous 1,920 ml @ 80 mls/hr TPN CONT 08/20/19 22:00 08/21/19 22:00 DC 08/20/19 21:51 80 MLS/HR Potassium Chloride 80 meq/ Magnesium Sulfate 20 meq/ Multivitamins 10 ml/Chromium/ Copper/Manganese/ Seleni/Zn 0.5 ml/ Insulin Human Regular 15 unit/ Total Parenteral Nutrition/Amino Acids/Dextrose/ Fat Emulsion Intravenous 1,920 ml @ 80 mls/hr TPN CONT 08/30/19 22:00 08/31/19 21:59 DC 08/30/19 21:40 80 MLS/HR Potassium Chloride 80 meq/ Magnesium Sulfate 20 meq/ Multivitamins 10 ml/Chromium/ Copper/Manganese/ Seleni/Zn 1 ml/ Insulin Human Regular 15 unit/ Total Parenteral Nutrition/Amino Acids/Dextrose/ Fat Emulsion Intravenous 1,800 ml @ 75 mls/hr TPN CONT 09/18/19 22:00 09/19/19 21:59 DC 09/18/19 21:54 75 MLS/HR Potassium Chloride 90 meq/ Magnesium Sulfate 20 meq/ Multivitamins 10 ml/Chromium/ Copper/Manganese/ Seleni/Zn 1 ml/ Insulin Human Regular 15 unit/ Total Parenteral Nutrition/Amino Acids/Dextrose/ Fat Emulsion Intravenous 1,800 ml @ 75 mls/hr TPN CONT 09/07/19 22:00 09/08/19 21:59 DC 09/07/19 22:28 75 MLS/HR Potassium Chloride 90 meq/ Magnesium Sulfate 20 meq/ Multivitamins 10 ml/Chromium/ Copper/Manganese/ Seleni/Zn 1 ml/ Insulin Human Regular 20 unit/ Total Parenteral Nutrition/Amino Acids/Dextrose/ Fat Emulsion Intravenous 1,800 ml @ 75 mls/hr TPN CONT 09/21/19 22:00 09/22/19 21:59 DC 09/21/19 23:13 75 MLS/HR Potassium Chloride/Water 100 ml @ 100 mls/hr Q1H 10/05/19 08:00 10/05/19 09:59 DC 10/05/19 09:12 100 MLS/HR Potassium Phosphate 20 mmol/ Sodium Chloride 106.6667 ml @ 51.667 m... 1X ONCE 07/13/19 13:00 07/13/19 15:03 DC 07/13/19 12:51 51.667 MLS/HR Potassium Acetate 30 meq/Magnesium Sulfate 14 meq/ Multivitamins 10 ml/Chromium/ Copper/Manganese/ Seleni/Zn 1 ml/ Insulin Human Regular 15 unit/ Sodium Chloride 20 meq/Potassium Chloride 30 meq/ Total Parenteral Nutrition/Amino Acids/Dextrose/ Fat Emulsion Intravenous 1,920 ml @ 80 mls/hr TPN CONT 10/11/19 22:00 10/12/19 21:59 DC 10/11/19 21:46 80 MLS/HR Potassium Acetate 30 meq/Magnesium Sulfate 20 meq/ Calcium Gluconate 10 meq/ Multivitamins 10 ml/Chromium/ Copper/Manganese/ Seleni/Zn 0.5 ml/ Insulin Human Regular 30 unit/ Potassium Chloride 30 meq/ Total Parenteral Nutrition/Amino Acids/Dextrose/ Fat Emulsion Intravenous 1,920 ml @ 80 mls/hr TPN CONT 08/19/19 22:00 08/20/19 21:59 DC 08/19/19 22:34 80 MLS/HR Potassium Acetate 40 meq/Magnesium Sulfate 10 meq/ Multivitamins 10 ml/Chromium/ Copper/Manganese/ Seleni/Zn 1 ml/ Insulin Human Regular 20 unit/ Total Parenteral Nutrition/Amino Acids/Dextrose/ Fat Emulsion Intravenous 1,920 ml @ 80 mls/hr TPN CONT 10/04/19 22:00 10/05/19 21:59 DC 10/04/19 21:32 80 MLS/HR Potassium Acetate 40 meq/Magnesium Sulfate 5 meq/ Multivitamins 10 ml/Chromium/ Copper/Manganese/ Seleni/Zn 1 ml/ Insulin Human Regular 30 unit/ Total Parenteral Nutrition/Amino Acids/Dextrose/ Fat Emulsion Intravenous 1,920 ml @ 80 mls/hr TPN CONT 10/03/19 22:00 10/04/19 19:34 DC 10/03/19 21:54 80 MLS/HR Potassium Acetate 55 meq/Magnesium Sulfate 20 meq/ Calcium Gluconate 10 meq/ Multivitamins 10 ml/Chromium/ Copper/Manganese/ Seleni/Zn 0.5 ml/ Insulin Human Regular 30 unit/ Total Parenteral Nutrition/Amino Acids/Dextrose/ Fat Emulsion Intravenous 1,920 ml @ 80 mls/hr TPN CONT 08/18/19 22:00 08/19/19 21:59 DC 08/19/19 01:00 80 MLS/HR Potassium Acetate 55 meq/Magnesium Sulfate 20 meq/ Calcium Gluconate 10 meq/ Multivitamins 10 ml/Chromium/ Copper/Manganese/ Seleni/Zn 0.5 ml/ Insulin Human Regular 35 unit/ Total Parenteral Nutrition/Amino Acids/Dextrose/ Fat Emulsion Intravenous 1,920 ml @ 80 mls/hr TPN CONT 08/16/19 22:00 08/17/19 21:59 DC 08/16/19 22:02 80 MLS/HR Potassium Acetate 60 meq/Magnesium Sulfate 10 meq/ Multivitamins 10 ml/Chromium/ Copper/Manganese/ Seleni/Zn 1 ml/ Insulin Human Regular 20 unit/ Total Parenteral Nutrition/Amino Acids/Dextrose/ Fat Emulsion Intravenous 1,920 ml @ 80 mls/hr TPN CONT 10/05/19 22:00 10/06/19 21:59 DC 10/05/19 21:55 80 MLS/HR Potassium Acetate 60 meq/Magnesium Sulfate 14 meq/ Multivitamins 10 ml/Chromium/ Copper/Manganese/ Seleni/Zn 1 ml/ Insulin Human Regular 15 unit/ Sodium Chloride 20 meq/Total Parenteral Nutrition/Amino Acids/Dextrose/ Fat Emulsion Intravenous 1,920 ml @ 80 mls/hr TPN CONT 10/10/19 22:00 10/11/19 21:59 DC 10/10/19 21:54 80 MLS/HR Potassium Acetate 60 meq/Magnesium Sulfate 14 meq/ Multivitamins 10 ml/Chromium/ Copper/Manganese/ Seleni/Zn 1 ml/ Insulin Human Regular 15 unit/ Total Parenteral Nutrition/Amino Acids/Dextrose/ Fat Emulsion Intravenous 1,920 ml @ 80 mls/hr TPN CONT 10/09/19 22:00 10/10/19 21:59 DC 10/09/19 22:22 80 MLS/HR Potassium Acetate 60 meq/Magnesium Sulfate 14 meq/ Multivitamins 10 ml/Chromium/ Copper/Manganese/ Seleni/Zn 1 ml/ Insulin Human Regular 20 unit/ Total Parenteral Nutrition/Amino Acids/Dextrose/ Fat Emulsion Intravenous 1,920 ml @ 80 mls/hr TPN CONT 10/06/19 22:00 10/07/19 21:59 DC 10/06/19 22:26 80 MLS/HR Potassium Acetate 60 meq/Magnesium Sulfate 5 meq/ Multivitamins 10 ml/Chromium/ Copper/Manganese/ Seleni/Zn 1 ml/ Insulin Human Regular 30 unit/ Total Parenteral Nutrition/Amino Acids/Dextrose/ Fat Emulsion Intravenous 1,920 ml @ 80 mls/hr TPN CONT 09/24/19 22:00 09/25/19 21:59 DC 09/24/19 21:54 80 MLS/HR Potassium Acetate 65 meq/Magnesium Sulfate 20 meq/ Calcium Gluconate 10 meq/ Multivitamins 10 ml/Chromium/ Copper/Manganese/ Seleni/Zn 0.5 ml/ Insulin Human Regular 30 unit/ Total Parenteral Nutrition/Amino Acids/Dextrose/ Fat Emulsion Intravenous 1,920 ml @ 80 mls/hr TPN CONT 08/17/19 22:00 08/18/19 21:59 DC 08/17/19 22:22 80 MLS/HR Potassium Acetate 80 meq/Magnesium Sulfate 5 meq/ Multivitamins 10 ml/Chromium/ Copper/Manganese/ Seleni/Zn 1 ml/ Insulin Human Regular 20 unit/ Total Parenteral Nutrition/Amino Acids/Dextrose/ Fat Emulsion Intravenous 1,920 ml @ 80 mls/hr TPN CONT 09/23/19 22:00 09/24/19 21:59 DC 09/23/19 21:59 80 MLS/HR Prochlorperazine Edisylate (Compazine) 5 mg PACU PRN PRN 08/15/19 07:00 08/16/19 06:59 DC Propofol (Diprivan) 200 mg STK-MED ONCE 10/18/19 07:44 10/18/19 07:44 DC Ringer's Solution 1,000 ml @ 30 mls/hr Q24H 08/15/19 07:00 08/15/19 18:59 DC Rocuronium [place] (Zemuron) 100 mg STK-MED ONCE 10/18/19 07:44 10/18/19 07:44 DC Saliva Substitute (Biotene Moisturizing Mouth) 2 spray PRN Q15MIN PRN 09/08/19 11:00 Sevoflurane (Ultane) 60 ml STK-MED ONCE 08/15/19 12:26 08/15/19 12:27 DC Sodium Bicarbonate 150 meq/Dextrose 1,150 ml @ 75 mls/hr 1X ONCE 10/18/19 16:30 10/19/19 07:49 DC 10/18/19 20:02 75 MLS/HR Sodium Bicarbonate 50 meq/Sodium Chloride 1,050 ml @ 75 mls/hr Q14H 07/06/19 07:30 07/11/19 10:28 DC 07/10/19 21:10 75 MLS/HR Sodium Acetate 50 meq/Potassium Acetate 55 meq/ Magnesium Sulfate 20 meq/Calcium Gluconate 10 meq/ Multivitamins 10 ml/Chromium/ Copper/Manganese/ Seleni/Zn 0.5 ml/ Insulin Human Regular 35 unit/ Total Parenteral Nutrition/Amino Acids/Dextrose/ Fat Emulsion Intravenous 1,800 ml @ 75 mls/hr TPN CONT 08/13/19 22:00 08/14/19 21:59 DC 08/13/19 22:03 75 MLS/HR Sodium Bicarbonate (Sodium Bicarb Adult 8.4% Syr) 100 meq 1X ONCE 10/18/19 16:30 10/18/19 16:31 DC 10/18/19 17:07 100 MEQ Sodium Chloride (Normal Saline Flush) 3 ml QSHIFT PRN 10/18/19 14:45 Sodium Chloride 80 meq/Potassium Chloride 30 meq/ Potassium Acetate 30 meq/Magnesium Sulfate 14 meq/ Multivitamins 10 ml/Chromium/ Copper/Manganese/ Seleni/Zn 1 ml/ Insulin Human Regular 15 unit/ Total Parenteral Nutrition/Amino Acids/Dextrose/ Fat Emulsion Intravenous 1,920 ml @ 80 mls/hr TPN CONT 10/19/19 22:00 10/20/19 21:59 DC 10/19/19 23:05 80 MLS/HR Sodium Chloride 90 meq/Calcium Gluconate 10 meq/ Multivitamins 10 ml/Chromium/ Copper/Manganese/ Seleni/Zn 0.5 ml/ Total Parenteral Nutrition/Amino Acids/Dextrose/ Fat Emulsion Intravenous 1,512 ml @ 63 mls/hr TPN CONT 07/06/19 22:00 07/07/19 21:59 DC 07/06/19 22:06 63 MLS/HR Sodium Chloride 90 meq/Calcium Gluconate 10 meq/ Multivitamins 10 ml/Chromium/ Copper/Manganese/ Seleni/Zn 1 ml/ Total Parenteral Nutrition/Amino Acids/Dextrose/ Fat Emulsion Intravenous 55.005 ml @ 2.292 mls/hr TPN CONT 07/06/19 22:00 07/06/19 12:33 DC Sodium Chloride 90 meq/Magnesium Sulfate 10 meq/ Calcium Gluconate 20 meq/ Multivitamins 10 ml/Chromium/ Copper/Manganese/ Seleni/Zn 0.5 ml/ Total Parenteral Nutrition/Amino Acids/Dextrose/ Fat Emulsion Intravenous 1,512 ml @ 63 mls/hr TPN CONT 07/07/19 22:00 07/08/19 21:59 DC 07/07/19 22:25 63 MLS/HR Sodium Chloride 90 meq/Magnesium Sulfate 12 meq/ Calcium Gluconate 15 meq/ Multivitamins 10 ml/Chromium/ Copper/Manganese/ Seleni/Zn 0.5 ml/ Insulin Human Regular 25 unit/ Total Parenteral Nutrition/Amino Acids/Dextrose/ Fat Emulsion Intravenous 1,400 ml @ 58.333 mls/ hr TPN CONT 07/27/19 22:00 07/28/19 21:59 DC 07/27/19 21:41 58.333 MLS/HR Sodium Chloride 90 meq/Potassium Chloride 15 meq/ Magnesium Sulfate 12 meq/Calcium Gluconate 15 meq/ Multivitamins 10 ml/Chromium/ Copper/Manganese/ Seleni/Zn 0.5 ml/ Insulin Human Regular 25 unit/ Total Parenteral Nutrition/Amino Acids/Dextrose/ Fat Emulsion Intravenous 1,400 ml @ 58.333 mls/ hr TPN CONT 07/26/19 22:00 07/27/19 21:59 DC 07/26/19 22:13 58.333 MLS/HR Sodium Chloride 90 meq/Potassium Chloride 15 meq/ Potassium Phosphate 10 mmol/ Magnesium Sulfate 8 meq/Calcium Gluconate 15 meq/ Multivitamins 10 ml/Chromium/ Copper/Manganese/ Seleni/Zn 0.5 ml/ Insulin Human Regular 25 unit/ Total Parenteral Nutrition/Amino Acids/Dextrose/ Fat Emulsion Intravenous 1,400 ml @ 58.333 mls/ hr TPN CONT 07/24/19 22:00 07/25/19 21:59 DC 07/24/19 21:20 58.333 MLS/HR Sodium Chloride 90 meq/Potassium Chloride 15 meq/ Potassium Phosphate 10 mmol/ Magnesium Sulfate 10 meq/Calcium Gluconate 20 meq/ Multivitamins 10 ml/Chromium/ Copper/Manganese/ Seleni/Zn 0.5 ml/ Total Parenteral Nutrition/Amino Acids/Dextrose/ Fat Emulsion Intravenous 1,400 ml @ 58.333 mls/ hr TPN CONT 07/11/19 22:00 07/12/19 21:59 DC 07/11/19 21:42 58.333 MLS/HR Sodium Chloride 90 meq/Potassium Chloride 15 meq/ Potassium Phosphate 10 mmol/ Magnesium Sulfate 12 meq/Calcium Gluconate 15 meq/ Multivitamins 10 ml/Chromium/ Copper/Manganese/ Seleni/Zn 0.5 ml/ Insulin Human Regular 25 unit/ Total Parenteral Nutrition/Amino Acids/Dextrose/ Fat Emulsion Intravenous 1,400 ml @ 58.333 mls/ hr TPN CONT 07/25/19 22:00 07/26/19 21:59 DC 07/25/19 22:24 58.333 MLS/HR Sodium Chloride 90 meq/Potassium Chloride 15 meq/ Potassium Phosphate 15 mmol/ Magnesium Sulfate 10 meq/Calcium Gluconate 15 meq/ Multivitamins 10 ml/Chromium/ Copper/Manganese/ Seleni/Zn 0.5 ml/ Total Parenteral Nutrition/Amino Acids/Dextrose/ Fat Emulsion Intravenous 1,400 ml @ 58.333 mls/ hr TPN CONT 07/12/19 22:00 07/13/19 21:59 DC 07/12/19 22:17 58.333 MLS/HR Sodium Chloride 90 meq/Potassium Chloride 15 meq/ Potassium Phosphate 15 mmol/ Magnesium Sulfate 10 meq/Calcium Gluconate 20 meq/ Multivitamins 10 ml/Chromium/ Copper/Manganese/ Seleni/Zn 0.5 ml/ Total Parenteral Nutrition/Amino Acids/Dextrose/ Fat Emulsion Intravenous 1,200 ml @ 50 mls/hr TPN CONT 07/10/19 22:00 07/10/19 14:17 DC Sodium Chloride 90 meq/Potassium Chloride 15 meq/ Potassium Phosphate 18 mmol/ Magnesium Sulfate 8 meq/Calcium Gluconate 15 meq/ Multivitamins 10 ml/Chromium/ Copper/Manganese/ Seleni/Zn 0.5 ml/ Insulin Human Regular 10 unit/ Total Parenteral Nutrition/Amino Acids/Dextrose/ Fat Emulsion Intravenous 1,400 ml @ 58.333 mls/ hr TPN CONT 07/15/19 22:00 07/16/19 21:59 DC 07/15/19 21:43 58.333 MLS/HR Sodium Chloride 90 meq/Potassium Chloride 15 meq/ Potassium Phosphate 18 mmol/ Magnesium Sulfate 8 meq/Calcium Gluconate 15 meq/ Multivitamins 10 ml/Chromium/ Copper/Manganese/ Seleni/Zn 0.5 ml/ Insulin Human Regular 15 unit/ Total Parenteral Nutrition/Amino Acids/Dextrose/ Fat Emulsion Intravenous 1,400 ml @ 58.333 mls/ hr TPN CONT 07/18/19 22:00 07/19/19 21:59 DC 07/18/19 21:47 58.333 MLS/HR Sodium Chloride 90 meq/Potassium Chloride 15 meq/ Potassium Phosphate 18 mmol/ Magnesium Sulfate 8 meq/Calcium Gluconate 15 meq/ Multivitamins 10 ml/Chromium/ Copper/Manganese/ Seleni/Zn 0.5 ml/ Insulin Human Regular 20 unit/ Total Parenteral Nutrition/Amino Acids/Dextrose/ Fat Emulsion Intravenous 1,400 ml @ 58.333 mls/ hr TPN CONT 07/21/19 22:00 07/22/19 21:59 DC 07/21/19 22:45 58.333 MLS/HR Sodium Chloride 90 meq/Potassium Chloride 15 meq/ Potassium Phosphate 18 mmol/ Magnesium Sulfate 8 meq/Calcium Gluconate 15 meq/ Multivitamins 10 ml/Chromium/ Copper/Manganese/ Seleni/Zn 0.5 ml/ Total Parenteral Nutrition/Amino Acids/Dextrose/ Fat Emulsion Intravenous 1,400 ml @ 58.333 mls/ hr TPN CONT 07/14/19 22:00 07/15/19 21:59 DC 07/14/19 22:00 58.333 MLS/HR Sodium Chloride 90 meq/Potassium Chloride 30 meq/ Potassium Acetate 30 meq/Magnesium Sulfate 15 meq/ Multivitamins 10 ml/Chromium/ Copper/Manganese/ Seleni/Zn 1 ml/ Insulin Human Regular 15 unit/ Total Parenteral Nutrition/Amino Acids/Dextrose/ Fat Emulsion Intravenous 1,680 ml @ 70 mls/hr TPN CONT 11/03/19 22:00 11/04/19 21:59 DC 11/03/19 22:06 70 MLS/HR Sodium Chloride 90 meq/Potassium Phosphate 15 mmol/ Magnesium Sulfate 12 meq/Calcium Gluconate 15 meq/ Multivitamins 10 ml/Chromium/ Copper/Manganese/ Seleni/Zn 0.5 ml/ Insulin Human Regular 30 unit/ Total Parenteral Nutrition/Amino Acids/Dextrose/ Fat Emulsion Intravenous 1,400 ml @ 58.333 mls/ hr TPN CONT 07/29/19 22:00 07/30/19 21:59 DC 07/29/19 21:49 58.333 MLS/HR Sodium Chloride 90 meq/Potassium Phosphate 15 mmol/ Magnesium Sulfate 12 meq/Calcium Gluconate 15 meq/ Multivitamins 10 ml/Chromium/ Copper/Manganese/ Seleni/Zn 0.5 ml/ Insulin Human Regular 40 unit/ Total Parenteral Nutrition/Amino Acids/Dextrose/ Fat Emulsion Intravenous 1,400 ml @ 58.333 mls/ hr TPN CONT 07/30/19 22:00 07/31/19 21:59 DC 07/30/19 21:21 58.333 MLS/HR Sodium Chloride 90 meq/Potassium Phosphate 19 mmol/ Magnesium Sulfate 12 meq/Calcium Gluconate 15 meq/ Multivitamins 10 ml/Chromium/ Copper/Manganese/ Seleni/Zn 0.5 ml/ Insulin Human Regular 40 unit/ Total Parenteral Nutrition/Amino Acids/Dextrose/ Fat Emulsion Intravenous 1,400 ml @ 58.333 mls/ hr TPN CONT 07/31/19 22:00 08/01/19 21:59 DC 07/31/19 21:54 58.333 MLS/HR Sodium Chloride 90 meq/Potassium Phosphate 5 mmol/ Magnesium Sulfate 12 meq/Calcium Gluconate 15 meq/ Multivitamins 10 ml/Chromium/ Copper/Manganese/ Seleni/Zn 0.5 ml/ Insulin Human Regular 30 unit/ Total Parenteral Nutrition/Amino Acids/Dextrose/ Fat Emulsion Intravenous 1,400 ml @ 58.333 mls/ hr TPN CONT 07/28/19 22:00 07/29/19 21:59 DC 07/28/19 22:08 58.333 MLS/HR Sodium Chloride 100 meq/Potassium Chloride 30 meq/ Potassium Acetate 30 meq/Magnesium Sulfate 12 meq/ Multivitamins 10 ml/Chromium/ Copper/Manganese/ Seleni/Zn 1 ml/ Insulin Human Regular 15 unit/ Total Parenteral Nutrition/Amino Acids/Dextrose/ Fat Emulsion Intravenous 1,680 ml @ 70 mls/hr TPN CONT 10/23/19 22:00 10/24/19 21:59 DC 10/23/19 21:23 70 MLS/HR Sodium Chloride 100 meq/Potassium Chloride 40 meq/ Magnesium Sulfate 15 meq/Calcium Gluconate 15 meq/ Multivitamins 10 ml/Chromium/ Copper/Manganese/ Seleni/Zn 0.5 ml/ Insulin Human Regular 35 unit/ Total Parenteral Nutrition/Amino Acids/Dextrose/ Fat Emulsion Intravenous 1,400 ml @ 58.333 mls/ hr TPN CONT 08/07/19 22:00 08/08/19 21:59 DC 08/07/19 22:46 58.333 MLS/HR Sodium Chloride 100 meq/Potassium Chloride 40 meq/ Magnesium Sulfate 20 meq/Calcium Gluconate 10 meq/ Multivitamins 10 ml/Chromium/ Copper/Manganese/ Seleni/Zn 0.5 ml/ Insulin Human Regular 35 unit/ Total Parenteral Nutrition/Amino Acids/Dextrose/ Fat Emulsion Intravenous 1,400 ml @ 58.333 mls/ hr TPN CONT 08/11/19 22:00 08/12/19 21:59 DC 08/12/19 00:06 58.333 MLS/HR Sodium Chloride 100 meq/Potassium Chloride 40 meq/ Magnesium Sulfate 20 meq/Calcium Gluconate 15 meq/ Multivitamins 10 ml/Chromium/ Copper/Manganese/ Seleni/Zn 0.5 ml/ Insulin Human Regular 35 unit/ Total Parenteral Nutrition/Amino Acids/Dextrose/ Fat Emulsion Intravenous 1,400 ml @ 58.333 mls/ hr TPN CONT 08/10/19 22:00 08/11/19 21:59 DC 08/10/19 22:27 58.333 MLS/HR Sodium Chloride 100 meq/Potassium Phosphate 10 mmol/ Magnesium Sulfate 12 meq/Calcium Gluconate 15 meq/ Multivitamins 10 ml/Chromium/ Copper/Manganese/ Seleni/Zn 0.5 ml/ Insulin Human Regular 35 unit/ Potassium Chloride 20 meq/ Total Parenteral Nutrition/Amino Acids/Dextrose/ Fat Emulsion Intravenous 1,400 ml @ 58.333 mls/ hr TPN CONT 08/04/19 22:00 08/05/19 21:59 DC 08/04/19 22:10 58.333 MLS/HR Sodium Chloride 100 meq/Potassium Phosphate 19 mmol/ Magnesium Sulfate 12 meq/Calcium Gluconate 15 meq/ Multivitamins 10 ml/Chromium/ Copper/Manganese/ Seleni/Zn 0.5 ml/ Insulin Human Regular 40 unit/ Potassium Chloride 20 meq/ Total Parenteral Nutrition/Amino Acids/Dextrose/ Fat Emulsion Intravenous 1,400 ml @ 58.333 mls/ hr TPN CONT 08/03/19 22:00 08/04/19 21:59 DC 08/03/19 21:20 58.333 MLS/HR Sodium Chloride 100 meq/Potassium Phosphate 5 mmol/ Magnesium Sulfate 12 meq/Calcium Gluconate 15 meq/ Multivitamins 10 ml/Chromium/ Copper/Manganese/ Seleni/Zn 0.5 ml/ Insulin Human Regular 35 unit/ Potassium Chloride 20 meq/ Total Parenteral Nutrition/Amino Acids/Dextrose/ Fat Emulsion Intravenous 1,400 ml @ 58.333 mls/ hr TPN CONT 08/05/19 22:00 08/06/19 21:59 DC 08/05/19 22:59 58.333 MLS/HR Sodium Chloride 110 meq/Potassium Chloride 30 meq/ Potassium Acetate 30 meq/Magnesium Sulfate 15 meq/ Multivitamins 10 ml/Chromium/ Copper/Manganese/ Seleni/Zn 1 ml/ Insulin Human Regular 15 unit/ Total Parenteral Nutrition/Amino Acids/Dextrose/ Fat Emulsion Intravenous 1,680 ml @ 70 mls/hr TPN CONT 11/05/19 22:00 11/06/19 21:59 DC 11/05/19 22:01 70 MLS/HR Sodium Chloride 110 meq/Sodium Phosphate 10 mmol/ Potassium Chloride 30 meq/ Potassium Acetate 30 meq/Magnesium Sulfate 15 meq/ Multivitamins 10 ml/Chromium/ Copper/Manganese/ Seleni/Zn 1 ml/ Insulin Human Regular 15 unit/ Total Parenteral Nutrition/Amino Acids/Dextrose/ Fat Emulsion Intravenous 1,680 ml @ 70 mls/hr TPN CONT 11/06/19 22:00 11/07/19 21:59 DC 11/06/19 22:03 70 MLS/HR Sodium Chloride 120 meq/Sodium Phosphate 10 mmol/ Potassium Chloride 30 meq/ Potassium Acetate 30 meq/Magnesium Sulfate 15 meq/ Multivitamins 10 ml/Chromium/ Copper/Manganese/ Seleni/Zn 1 ml/ Insulin Human Regular 15 unit/ Total Parenteral Nutrition/Amino Acids/Dextrose/ Fat Emulsion Intravenous 1,680 ml @ 70 mls/hr TPN CONT 11/12/19 22:00 11/13/19 21:59 11/12/19 22:14 70 MLS/HR Succinylcholine Chloride (Anectine) 120 mg 1X ONCE 07/11/19 08:30 07/11/19 08:31 DC 07/11/19 08:34 120 MG Vancomycin HCl (Vanco Per Pharmacy) 1 each PRN DAILY PRN 10/30/19 09:15 11/02/19 07:41 DC 11/01/19 02:46 1 EACH Vancomycin HCl (Vancomycin Random Level) 1 each 1X ONCE 11/01/19 01:00 11/01/19 01:01 DC 11/01/19 01:00 1 EACH Vancomycin HCl (Vancomycin Trough Level) 1 each 1X ONCE 11/02/19 09:30 11/02/19 09:31 Cancel Vancomycin HCl 1.5 gm/Sodium Chloride 500 ml @ 250 mls/hr Q12H 11/01/19 10:00 11/02/19 07:41 DC 11/01/19 22:07 250 MLS/HR Vancomycin HCl 2 gm/Sodium Chloride 500 ml @ 250 mls/hr 1X ONCE 10/30/19 10:00 10/30/19 11:59 DC 10/30/19 10:34 250 MLS/HR Vasopressin (Vasostrict) 20 unit STK-MED ONCE 10/18/19 12:23 10/18/19 12:23 DC Vasopressin 20 unit/Dextrose 101 ml @ 12 mls/hr CONT PRN 10/18/19 15:30 10/25/19 04:17 12 MLS/HR Vecuronium [place] (Norcuron Bolus) 6 mg PRN Q6HRS PRN 08/25/19 19:15 08/25/19 19:35 DC Labs: Lab Laboratory Tests Test 11/12/19 11:36 11/12/19 17:48 11/12/19 23:49 11/13/19 05:55 Glucose (Fingerstick) 145 mg/dL (70-99) 132 mg/dL (70-99) 139 mg/dL (70-99) White Blood Count 14.7 x10^3/uL (4.0-11.0) Red Blood Count 2.78 x10^6/uL (3.50-5.40) Hemoglobin 7.7 g/dL (12.0-15.5) Hematocrit 23.8 % (36.0-47.0) Mean Corpuscular Volume 86 fL (79-100) Mean Corpuscular Hemoglobin 28 pg (25-35) Mean Corpuscular Hemoglobin Concent 33 g/dL (31-37) Red Cell Distribution Width 16.0 % (11.5-14.5) Platelet Count 563 x10^3/uL (140-400) Neutrophils (%) (Auto) 83 % (31-73) Lymphocytes (%) (Auto) 8 % (24-48) Monocytes (%) (Auto) 7 % (0-9) Eosinophils (%) (Auto) 3 % (0-3) Basophils (%) (Auto) 0 % (0-3) Neutrophils # (Auto) 12.2 x10^3/uL (1.8-7.7) Lymphocytes # (Auto) 1.2 x10^3/uL (1.0-4.8) Monocytes # (Auto) 1.0 x10^3/uL (0.0-1.1) Eosinophils # (Auto) 0.4 x10^3/uL (0.0-0.7) Basophils # (Auto) 0.0 x10^3/uL (0.0-0.2) Test 11/13/19 06:00 Glucose (Fingerstick) 120 mg/dL (70-99) Micro NEG ALEXANDRA 56 PSEUDOMONAS AERUGINOSA ANTIBIOTIC RESULT INTERPRETATION AMIKACIN <=16 S AZTREONAM >16 R CEFTAZIDIME >16 R CIPROFLOXACIN <=0.25 S CEFEPIME 16 I GENTAMICIN <=2 S LEVOFLOXACIN <=0.5 S CONTINUED ON NEXT PAGE RUN DATE: 09/28/19 [facility] *LIVE* PAGE 2 RUN TIME: 1121 Specimen Inquiry SPEC: [id number] PATIENT: SCOTT CUELLAR [id number] (Continued) Procedure Result ANTIMICROBIAL SUSCEPTIBILITY Preliminary (continued) MEROPENEM <=1 S PIPERACILLIN/TAZOBACTAM 64 S TOBRAMYCIN <=2 S Unless otherwise specified, Testing Performed by: [address] [id number] For Inquires, the Physician may contact the Microbiology department at [phone] Objective: Assessment: Patient with prolonged hospitalization more than 4 months Multiple medical problems Multiple surgical procedures S/P Exp. 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 parapsilosis & PSAE (I-merrem/ceftazidime/AZT/cefepime)) Leucocytosis -trending upward Fever Acute gallstone pancreatitis with persistent necrosis - 07/27. CT A/P Increased ascites. 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 status post KAYLIN drain placement; C. parapsilosis. s/p drain 08/23 + yeast & high amylase; s/p additional drain on 08/25. Drains removed. -08/23. fluid devyn parapsilosis fluid, amylase high - 09/23 showed multiple pseudocysts, slight larger on the right. s/p drains x 3, 09/24. + PSAE (MDRO-R Cefepime, Zosyn ALEXANDRA < 64) and yeast, -09/24 s/p drain replacement x 3; fluid cult PSAE (MDRO), yeast; treated -10/29 CT A/P shows smaller fluid collections. -722 CT abdomen and pelvis drains in place Ascites s/p paracentesis 08/02 & 08/23. C. parapsilosis Cholelithiasis with thickening of the gallbladder wall. JUANA, Hyperkalemia, Metabolic acidosis off dialysis Acute hypoxic resp failure. trach/vent. sputum 09/30 + PSAE (I merrem) ; sputum culture November 05+ for PSAE R Merrem, sensitive to cefepime Pleural effusion status post CTS left side Abdominal fluid culture MDRO Pseudomonas, yeast Sputum culture positive 11/05 for MDRO Pseudomonas Chest tube fluid positive for 11/07 Devyn Parapsilosis Generalized debility Plan: Plan of Care Continue Avycaz /micafungin Restart daptomycin UA and urine culture Blood culture DC PICC line BC from neg to date C. difficile negative Monitor WBC/temp Follow cultures Wound care /drain management as directed Contact isolation for CRE/MDRO Critically ill terminal carman prognosis poor D/w nursing YUNIOR JONES MD Nov 13, 2019 06:56
[2019-11-13 07:00] VITALS: BP 104/47
--- NOTE | 2019-11-13 07:46 | PDOC ---
PROGRESS NOTES Chief Complaint Chief Complaint IMPRESSION S/P Exp. 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 parapsilosis & PSAE (I-merrem/ceftazidime/AZT/cefepime)) Leucocytosis -trending upward Fever Acute gallstone pancreatitis with persistent necrosis Postop (Exploratory laparotomy, lysis of adhesions, subtotal cholecystectomy with cholangiogram, gastrojejunostomy tube placement, pancreatic necrosectomy) Acute hypoxic Respiratory failure required mechanical ventilation Tracheostomy bilateral pleural effusions/pulm edema s/p Throacentesis on 10/03/2019 Severe Acute gallstone pancreatitis (not a surgical candidate at this time) with necrosis Acute kidney failure now requiring dialysis Gallstones (Calculus of gallbladder with acute cholecystitis without obstruction) HTN Intractable pain Intractable nausea Covid 19 negative. Acute on chronic anemia EEG: No seizure activity Fever - intermittent ? Ileus with vomiting Abd distention - U/S and CT reviewed s/p 0.4 L of opaque, debris-containing a scites was removed 08/23 Acute pancreatitis with persistent necrosis Gallstone pancreatitis with necrosis. -CT A/P 09/23 showed multiple pseudocysts, slight larger on the right. s/p drains x 3, 09/24. + PSAE (MDRO-R Cefepime, Zosyn ALEXANDRA < 64) and yeast, -s/p drain 08/14. C. parapsilosis. s/p drain 08/23 + yeast & high amylase; s/p additional drain on 08/25. Drains removed. Ascites s/p paracentesis 08/02 & 08/23. C. parapsilosis JUANA. off HD. A large fluid collection in the pancreatic bed has slightly decreased in size, described below, the pancreas itself is difficult to visualize, which could be due to necrosis or obscuration of pancreatic parenchyma from the surrounding fluid collection.10/02 - 08/14 status post KAYLIN drain placement + C paropsilosis. s/p additional drains 08/25 Anemia - S/p PRBCs. Cholelithiasis with thickening of the gallbladder wall. Leucocytosis improving JUANA, hyperkalemia, Metabolic acidosis off dialysis hypocalcemia Prediabetes HTN s/p trach Hyperglycemia severe protein-caloric malnutrition Moderate to large left pleural effusion with atelectasis and collapse of most of the left lower lobe, stable Extensive retroperitoneal fluid collections persist. Percutaneous drains remain within the collections in both paracolic gutters. These communicate with additional pelvic and peripancreatic collections. PLAN Continue Avycaz /micafungin DC dapto Follow-up C. difficile PCR BC from 11/01 neg to date 11/12 PICC line removed will start PPN for 24 hours then replace PICC line other side 37 MIN CC TIME History of Present Illness History of Present Illness 11/11 Patient seen in and examined in the ICU She is still extremely critically ill Appears weak, frail, and pale Better color today with improved eye contact and expression Discussed with RN Chart reviewed 11/08/2019 Patient seen and examined in the ICU She is still extremely critically ill Appears extremely weak frail and pale Discussed with RN Chart reviewed Vitals Vitals Vital Signs Date Time Temp Pulse Resp B/P (MAP) Pulse Ox O2 Delivery O2 Flow Rate FiO2 11/13/19 04:47 26 93 Nasal Cannula 2.0 11/13/19 03:00 98.7 123 124/72 (89) 98.7 Physical Exam Physical Exam GENERAL: pt in bed, appears weak HEENT: Pupils equal, oral cavity dry. NGT out NECK: Tracheostomy LUNGS: Diminished aeration bases, CT on left HEART: S1, S2, tachy 110s ABDOMEN: Distended, bowel sounds hypoactive, soft, goyal x 2, KAYLIN drains, G-J tube : Lind in place EXTREMITIES: Trace generalized edema, no cyanosis. RADHA hose bilaterally, SKIN: warm touch. No signs of rash. LUE-PICC without signs of complications General: Cooperative, mild distress Heart: Other (distant heart sounds, tachycardic) Lungs: Crackles Abdomen: Normal bowel sounds, Soft, No tenderness (Incisional tenderness wounds clean dry and intact wound VAC in place drains in place) Extremities: Other (Diffuse edema) Skin: No rashes, No significant lesion Labs LABS HARMEET BEE MD,MARY MALDONADO,CARIN Sorto MD ORDERED: BCULT Procedure Result BLOOD CULTURE Preliminary NO GROWTH AFTER 4 DAYS GRAM NEG COCCOBACILLI:MANY SQUAMOUS EPI CELL:RARE PMN (WBCs):FEW Unless otherwise specified, Testing Performed by: [address] [address] For Inquires, the Physician may contact the Microbiology department at [phone] RESPIRATORY CULTURE Final Final MANY GRAM NEGATIVE RODS on 10/03/19 at 1103 FINAL ID= [[email or web address]] MICRO CHARGES PSEUDOMONAS AERUGINOSA ANTIMICROBIAL SUSCEPTIBILITY Final Comment NEG ALEXANDRA 56 PSEUDOMONAS AERUGINOSA ANTIBIOTIC RESULT INTERPRETATION AMIKACIN <=16 S AZTREONAM <=4 S CEFTAZIDIME <=1 S CIPROFLOXACIN <=0.25 S CEFEPIME <=2 S CEFTAZIDIME/AVIBACTAM <=4 S GENTAMICIN <=2 S LEVOFLOXACIN <=0.5 S Laboratory Tests Test 11/12/19 11:36 11/12/19 17:48 11/12/19 23:49 11/13/19 05:55 Glucose (Fingerstick) 145 mg/dL (70-99) 132 mg/dL (70-99) 139 mg/dL (70-99) White Blood Count 14.7 x10^3/uL (4.0-11.0) Red Blood Count 2.78 x10^6/uL (3.50-5.40) Hemoglobin 7.7 g/dL (12.0-15.5) Hematocrit 23.8 % (36.0-47.0) Mean Corpuscular Volume 86 fL (79-100) Mean Corpuscular Hemoglobin 28 pg (25-35) Mean Corpuscular Hemoglobin Concent 33 g/dL (31-37) Red Cell Distribution Width 16.0 % (11.5-14.5) Platelet Count 563 x10^3/uL (140-400) Neutrophils (%) (Auto) 83 % (31-73) Lymphocytes (%) (Auto) 8 % (24-48) Monocytes (%) (Auto) 7 % (0-9) Eosinophils (%) (Auto) 3 % (0-3) Basophils (%) (Auto) 0 % (0-3) Neutrophils # (Auto) 12.2 x10^3/uL (1.8-7.7) Lymphocytes # (Auto) 1.2 x10^3/uL (1.0-4.8) Monocytes # (Auto) 1.0 x10^3/uL (0.0-1.1) Eosinophils # (Auto) 0.4 x10^3/uL (0.0-0.7) Basophils # (Auto) 0.0 x10^3/uL (0.0-0.2) Sodium Level 138 mmol/L (136-145) Potassium Level 4.4 mmol/L (3.5-5.1) Chloride Level 106 mmol/L (98-107) Carbon Dioxide Level 29 mmol/L (21-32) Anion Gap 3 (6-14) Blood Urea Nitrogen 15 mg/dL (7-20) Creatinine 0.5 mg/dL (0.6-1.0) Estimated GFR (Cockcroft-Gault) 131.1 BUN/Creatinine Ratio 30 (6-20) Glucose Level 123 mg/dL (70-99) Calcium Level 10.3 mg/dL (8.5-10.1) Total Bilirubin 0.4 mg/dL (0.2-1.0) Aspartate Amino Transf (AST/SGOT) 14 U/L (15-37) Alanine Aminotransferase (ALT/SGPT) 12 U/L (14-59) Alkaline Phosphatase 119 U/L (46-116) Total Protein 5.9 g/dL (6.4-8.2) Albumin 1.1 g/dL (3.4-5.0) Albumin/Globulin Ratio 0.2 (1.0-1.7) Test 11/13/19 06:00 Glucose (Fingerstick) 120 mg/dL (70-99) Assessment and Plan Assessmemt and Plan Problems Medical Problems: (1) Acute pancreatitis Status: Acute (2) Cholelithiasis Status: Acute Comment Review of Relevant I have reviewed the following items kolby (where applicable) has been applied. Labs Laboratory Tests Test 11/11/19 12:24 11/11/19 17:23 11/11/19 23:05 11/12/19 04:30 Glucose (Fingerstick) 156 mg/dL (70-99) 123 mg/dL (70-99) 138 mg/dL (70-99) Clostridium difficile Toxin (PCR) Negative (NEGATIVE) Test 11/12/19 04:45 11/12/19 05:48 11/12/19 11:36 11/12/19 17:48 Sodium Level 137 mmol/L (136-145) Potassium Level 4.3 mmol/L (3.5-5.1) Chloride Level 103 mmol/L (98-107) Carbon Dioxide Level 27 mmol/L (21-32) Anion Gap 7 (6-14) Blood Urea Nitrogen 15 mg/dL (7-20) Creatinine 0.6 mg/dL (0.6-1.0) Estimated GFR (Cockcroft-Gault) 106.3 Glucose Level 140 mg/dL (70-99) Calcium Level 10.0 mg/dL (8.5-10.1) Phosphorus Level 4.2 mg/dL (2.6-4.7) Glucose (Fingerstick) 138 mg/dL (70-99) 145 mg/dL (70-99) 132 mg/dL (70-99) Test 11/12/19 23:49 11/13/19 05:55 11/13/19 06:00 Glucose (Fingerstick) 139 mg/dL (70-99) 120 mg/dL (70-99) White Blood Count 14.7 x10^3/uL (4.0-11.0) Red Blood Count 2.78 x10^6/uL (3.50-5.40) Hemoglobin 7.7 g/dL (12.0-15.5) Hematocrit 23.8 % (36.0-47.0) Mean Corpuscular Volume 86 fL (79-100) Mean Corpuscular Hemoglobin 28 pg (25-35) Mean Corpuscular Hemoglobin Concent 33 g/dL (31-37) Red Cell Distribution Width 16.0 % (11.5-14.5) Platelet Count 563 x10^3/uL (140-400) Neutrophils (%) (Auto) 83 % (31-73) Lymphocytes (%) (Auto) 8 % (24-48) Monocytes (%) (Auto) 7 % (0-9) Eosinophils (%) (Auto) 3 % (0-3) Basophils (%) (Auto) 0 % (0-3) Neutrophils # (Auto) 12.2 x10^3/uL (1.8-7.7) Lymphocytes # (Auto) 1.2 x10^3/uL (1.0-4.8) Monocytes # (Auto) 1.0 x10^3/uL (0.0-1.1) Eosinophils # (Auto) 0.4 x10^3/uL (0.0-0.7) Basophils # (Auto) 0.0 x10^3/uL (0.0-0.2) Sodium Level 138 mmol/L (136-145) Potassium Level 4.4 mmol/L (3.5-5.1) Chloride Level 106 mmol/L (98-107) Carbon Dioxide Level 29 mmol/L (21-32) Anion Gap 3 (6-14) Blood Urea Nitrogen 15 mg/dL (7-20) Creatinine 0.5 mg/dL (0.6-1.0) Estimated GFR (Cockcroft-Gault) 131.1 BUN/Creatinine Ratio 30 (6-20) Glucose Level 123 mg/dL (70-99) Calcium Level 10.3 mg/dL (8.5-10.1) Total Bilirubin 0.4 mg/dL (0.2-1.0) Aspartate Amino Transf (AST/SGOT) 14 U/L (15-37) Alanine Aminotransferase (ALT/SGPT) 12 U/L (14-59) Alkaline Phosphatase 119 U/L (46-116) Total Protein 5.9 g/dL (6.4-8.2) Albumin 1.1 g/dL (3.4-5.0) Albumin/Globulin Ratio 0.2 (1.0-1.7) Laboratory Tests Test 11/12/19 11:36 11/12/19 17:48 11/12/19 23:49 11/13/19 05:55 Glucose (Fingerstick) 145 mg/dL (70-99) 132 mg/dL (70-99) 139 mg/dL (70-99) White Blood Count 14.7 x10^3/uL (4.0-11.0) Red Blood Count 2.78 x10^6/uL (3.50-5.40) Hemoglobin 7.7 g/dL (12.0-15.5) Hematocrit 23.8 % (36.0-47.0) Mean Corpuscular Volume 86 fL (79-100) Mean Corpuscular Hemoglobin 28 pg (25-35) Mean Corpuscular Hemoglobin Concent 33 g/dL (31-37) Red Cell Distribution Width 16.0 % (11.5-14.5) Platelet Count 563 x10^3/uL (140-400) Neutrophils (%) (Auto) 83 % (31-73) Lymphocytes (%) (Auto) 8 % (24-48) Monocytes (%) (Auto) 7 % (0-9) Eosinophils (%) (Auto) 3 % (0-3) Basophils (%) (Auto) 0 % (0-3) Neutrophils # (Auto) 12.2 x10^3/uL (1.8-7.7) Lymphocytes # (Auto) 1.2 x10^3/uL (1.0-4.8) Monocytes # (Auto) 1.0 x10^3/uL (0.0-1.1) Eosinophils # (Auto) 0.4 x10^3/uL (0.0-0.7) Basophils # (Auto) 0.0 x10^3/uL (0.0-0.2) Sodium Level 138 mmol/L (136-145) Potassium Level 4.4 mmol/L (3.5-5.1) Chloride Level 106 mmol/L (98-107) Carbon Dioxide Level 29 mmol/L (21-32) Anion Gap 3 (6-14) Blood Urea Nitrogen 15 mg/dL (7-20) Creatinine 0.5 mg/dL (0.6-1.0) Estimated GFR (Cockcroft-Gault) 131.1 BUN/Creatinine Ratio 30 (6-20) Glucose Level 123 mg/dL (70-99) Calcium Level 10.3 mg/dL (8.5-10.1) Total Bilirubin 0.4 mg/dL (0.2-1.0) Aspartate Amino Transf (AST/SGOT) 14 U/L (15-37) Alanine Aminotransferase (ALT/SGPT) 12 U/L (14-59) Alkaline Phosphatase 119 U/L (46-116) Total Protein 5.9 g/dL (6.4-8.2) Albumin 1.1 g/dL (3.4-5.0) Albumin/Globulin Ratio 0.2 (1.0-1.7) Test 11/13/19 06:00 Glucose (Fingerstick) 120 mg/dL (70-99) Microbiology 11/08/19 Blood Culture - Preliminary, Resulted NO GROWTH AFTER 4 DAYS 11/08/19 Gram Stain - Final, Resulted 11/08/19 Aerobic and Anaerobic Culture - Preliminary, Resulted 11/06/19 Gram Stain Evaluation - Final, Complete 11/06/19 Respiratory Culture - Final, Complete 11/06/19 Antimicrobic Susceptibility - Final, Complete 10/18/19 Gram Stain - Final, Complete 10/18/19 Aerobic and Anaerobic Culture - Final, Complete 10/18/19 Antimicrobic Susceptibility - Final, Complete 09/25/19 Urine Culture - Final, Complete 09/17/19 Gram Stain - Final, Complete 09/17/19 Aerobic Culture - Final, Complete Medications Current Medications Sodium Chloride 1,000 ml @ 1,000 mls/hr Q1H IV Last administered on 07/04/19at 03:00; Start 07/04/19 at 03:00; Stop 07/04/19 at 03:59; Status DC Ondansetron HCl (Zofran) 4 mg 1X ONCE IVP Last administered on 07/04/19at 03:27; Start 07/04/19 at 03:00; Stop 07/04/19 at 03:01; Status DC Morphine Sulfate (Morphine Sulfate) 4 mg 1X ONCE IV ; Start 07/04/19 at 03:00; Stop 07/04/19 at 03:01; Status Cancel Ketorolac Tromethamine (Toradol 30mg Vial) 30 mg 1X ONCE IV Last administered on 07/04/19at 02:54; Start 07/04/19 at 03:00; Stop 07/04/19 at 03:01; Status DC Fentanyl Citrate (Fentanyl 2ml Vial) 25 mcg 1X ONCE IVP Last administered on 07/04/19at 03:23; Start 07/04/19 at 03:30; Stop 07/04/19 at 03:31; Status DC Fentanyl Citrate (Fentanyl 2ml Vial) 100 mcg STK-MED ONCE .ROUTE ; Start 07/04/19 at 03:18; Stop 07/04/19 at 03:18; Status DC Iohexol (Omnipaque 350 Mg/ml) 90 ml 1X ONCE IV Last administered on 07/04/19at 03:25; Start 07/04/19 at 03:30; Stop 07/04/19 at 03:31; Status DC Info (CONTRAST GIVEN -- Rx MONITORING) 1 each PRN DAILY PRN MC SEE COMMENTS; Start 07/04/19 at 03:30; Stop 07/06/19 at 03:29; Status DC Hydromorphone HCl (Dilaudid) 0.5 mg 1X ONCE IV Last administered on 07/04/19at 03:55; Start 07/04/19 at 04:30; Stop 07/04/19 at 04:32; Status DC Ondansetron HCl (Zofran) 4 mg PRN Q8HRS PRN IV NAUSEA/VOMITING 1ST CHOICE; Start 07/04/19 at 05:00; Stop 07/04/19 at 09:27; Status DC Morphine Sulfate (Morphine Sulfate) 2 mg PRN Q2HR PRN IV SEVERE PAIN 7-10 Last administered on 07/05/19at 12:26; Start 07/04/19 at 05:00; Stop 07/05/19 at 14:15; Status DC Sodium Chloride 1,000 ml @ 125 mls/hr Q8H IV Last administered on 07/04/19at 20:56; Start 07/04/19 at 05:00; Stop 07/05/19 at 04:59; Status DC Hydromorphone HCl (Dilaudid) 0.5 mg PRN Q3HRS PRN IV SEVERE PAIN 7-10 Last administered on 07/05/19at 10:06; Start 07/04/19 at 05:00; Stop 07/05/19 at 12:01; Status DC Piperacillin Sod/ Tazobactam Sod 4.5 gm/Sodium Chloride 100 ml @ 200 mls/hr 1X ONCE IV Last administered on 07/04/19at 05:44; Start 07/04/19 at 06:00; Stop 07/04/19 at 06:29; Status DC Ondansetron HCl (Zofran) 4 mg PRN Q4HRS PRN IV NAUSEA/VOMITING 1ST CHOICE Last administered on 11/10/19at 20:49; Start 07/04/19 at 09:30 Insulin Human Lispro (HumaLOG) 0-9 UNITS Q6HRS SQ Last administered on 11/11/19at 12:26; Start 07/04/19 at 09:30 Dextrose (Dextrose 50%-Water Syringe) 12.5 gm PRN Q15MIN PRN IV SEE COMMENTS; Start 07/04/19 at 09:30 Pantoprazole Sodium (PROTONIX VIAL for IV PUSH) 40 mg DAILYAC IVP Last administered on 11/12/19at 07:56; Start 07/04/19 at 11:30 Prochlorperazine Edisylate (Compazine) 10 mg PRN Q6HRS PRN IV NAUSEA/VOMITING, 2nd CHOICE Last administered on 11/10/19at 13:45; Start 07/04/19 at 17:45 Atenolol (Tenormin) 100 mg DAILY PO ; Start 07/05/19 at 09:00; Stop 07/04/19 at 20:08; Status DC Metoprolol Tartrate (Lopressor Vial) 2.5 mg Q6HRS IVP Last administered on 07/05/19at 05:51; Start 07/04/19 at 20:15; Stop 07/05/19 at 10:02; Status DC Metoprolol Tartrate (Lopressor Vial) 5 mg Q6HRS IVP Last administered on 07/14/19at 00:12; Start 07/05/19 at 10:15; Stop 07/16/19 at 08:48; Status DC Hydromorphone HCl (Dilaudid) 1 mg PRN Q3HRS PRN IV SEVERE PAIN 7-10 Last administered on 07/11/19at 05:13; Start 07/05/19 at 12:00; Stop 07/19/19 at 00:2 5; Status DC Lidocaine HCl (Buffered Lidocaine 1%) 3 ml STK-MED ONCE .ROUTE ; Start 07/05/19 at 12:55; Stop 07/05/19 at 12:56; Status DC Albumin Human 500 ml @ 125 mls/hr 1X ONCE IV Last administered on 07/05/19at 14:33; Start 07/05/19 at 14:30; Stop 07/05/19 at 18:32; Status DC Norepinephrine Bitartrate 8 mg/ Dextrose 258 ml @ 17.299 mls/ hr CONT PRN IV PER PROTOCOL Last administered on 08/02/19at 12:48; Start 07/05/19 at 15:30; Stop 08/05/19 at 09:19; Status DC Sodium Chloride 1,000 ml @ 125 mls/hr Q8H IV Last administered on 07/05/19at 21:04; Start 07/05/19 at 16:00; Stop 07/06/19 at 02:42; Status DC Albumin Human 500 ml @ 125 mls/hr PRN BID PRN IV After every 2L NSS & BP < 90mm Last administered on 10/18/19at 16:06; Start 07/05/19 at 16:00; Stop 10/21/19 at 09:30; Status DC Iohexol (Omnipaque 300 Mg/ml) 60 ml 1X ONCE IV Last administered on 07/05/19at 17:20; Start 07/05/19 at 17:00; Stop 07/05/19 at 17:01; Status DC Info (CONTRAST GIVEN -- Rx MONITORING) 1 each PRN DAILY PRN MC SEE COMMENTS; Start 07/05/19 at 17:00; Stop 07/07/19 at 16:59; Status DC Meropenem 1 gm/ Sodium Chloride 100 ml @ 200 mls/hr Q8HRS IV Last administered on 07/06/19at 05:45; Start 07/05/19 at 20:00; Stop 07/06/19 at 08:48; Status DC Furosemide (Lasix) 40 mg 1X ONCE IVP Last administered on 07/05/19at 22:12; Start 07/05/19 at 22:30; Stop 07/05/19 at 22:31; Status DC Calcium Chloride 1000 mg/Sodium Chloride 110 ml @ 220 mls/hr 1X ONCE IV Last administered on 07/05/19at 22:11; Start 07/05/19 at 22:30; Stop 07/05/19 at 22:59; Status DC Albuterol Sulfate (Ventolin Neb Soln) 2.5 mg 1X ONCE NEB Last administered on 07/06/19at 00:56; Start 07/05/19 at 22:30; Stop 07/05/19 at 22:31; Status DC Insulin Human Regular (HumuLIN R VIAL) 5 unit 1X ONCE IV Last administered on 07/05/19at 22:14; Start 07/05/19 at 22:30; Stop 07/05/19 at 22:31; Status DC Magnesium Sulfate 50 ml @ 25 mls/hr 1X ONCE IV Last administered on 07/06/19at 02:57; Start 07/06/19 at 03:00; Stop 07/06/19 at 04:59; Status DC Calcium Gluconate 1000 mg/Sodium Chloride 110 ml @ 220 mls/hr 1X ONCE IV Last administered on 07/06/19at 02:46; Start 07/06/19 at 03:00; Stop 07/06/19 at 03:2 9; Status DC Sodium Chloride 1,000 ml @ 200 mls/hr Q5H IV Last administered on 07/06/19at 02:46; Start 07/06/19 at 03:00; Stop 07/06/19 at 10:21; Status DC Calcium Gluconate 1000 mg/Sodium Chloride 110 ml @ 220 mls/hr 1X ONCE IV Last administered on 07/06/19at 03:21; Start 07/06/19 at 03:30; Stop 07/06/19 at 03:59; Status DC Sodium Bicarbonate 50 meq/Sodium Chloride 1,050 ml @ 75 mls/hr Q14H IV Last administered on 07/10/19at 21:10; Start 07/06/19 at 07:30; Stop 07/11/19 at 10:28; Status DC Calcium Gluconate 2000 mg/Sodium Chloride 120 ml @ 220 mls/hr 1X ONCE IV Last administered on 07/06/19at 09:05; Start 07/06/19 at 07:30; Stop 07/06/19 at 08:02; Status DC Lidocaine HCl (Xylocaine-Mpf 1% 2ml Vial) 2 ml STK-MED ONCE .ROUTE ; Start 07/06/19 at 08:47; Stop 07/06/19 at 08:47; Status DC Meropenem 500 mg/ Sodium Chloride 50 ml @ 100 mls/hr Q12HR IV Last administered on 07/11/19at 21:01; Start 07/06/19 at 18:00; Stop 07/12/19 at 07:58; Status DC Lidocaine HCl (Buffered Lidocaine 1%) 3 ml STK-MED ONCE .ROUTE ; Start 07/06/19 at 09:46; Stop 07/06/19 at 09:46; Status DC Lidocaine HCl (Buffered Lidocaine 1%) 6 ml 1X ONCE INJ Last administered on 07/06/19at 10:26; Start 07/06/19 at 10:15; Stop 07/06/19 at 10:16; Status DC Info (Tpn Per Pharmacy) 1 each PRN DAILY PRN MC SEE COMMENTS Last administered on 11/12/19at 12:28; Start 07/06/19 at 12:00 Sodium Chloride 1,000 ml @ 1,000 mls/hr Q1H PRN IV hypotension; Start 07/06/19 at 12:07; Stop 07/06/19 at 18:06; Status DC Diphenhydramine HCl (Benadryl) 25 mg 1X PRN PRN IV ITCHING; Start 07/06/19 at 12:15; Stop 07/07/19 at 12:14; Status DC Diphenhydramine HCl (Benadryl) 25 mg 1X PRN PRN IV ITCHING; Start 07/06/19 at 12:15; Stop 07/07/19 at 12:14; Status DC Sodium Chloride 1,000 ml @ 400 mls/hr Q2H30M PRN IV PATENCY; Start 07/06/19 at 12:07; Stop 07/07/19 at 00:06; Status DC Info (PHARMACY MONITORING -- do not chart) 1 each PRN DAILY PRN MC SEE COMMENTS; Start 07/06/19 at 12:15; Stop 07/08/19 at 08:13; Status DC Sodium Chloride 90 meq/Calcium Gluconate 10 meq/ Multivitamins 10 ml/Chromium/ Copper/Manganese/ Seleni/Zn 1 ml/ Total Parenteral Nutrition/Amino Acids/Dextrose/ Fat Emulsion Intravenous 55.005 ml @ 2.292 mls/hr TPN CONT IV ; Start 07/06/19 at 22:00; Stop 07/06/19 at 12:33; Status DC Info (Tpn Per Pharmacy) 1 each PRN DAILY PRN MC SEE COMMENTS; Start 07/06/19 at 12:30; Status UNV Sodium Chloride 90 meq/Calcium Gluconate 10 meq/ Multivitamins 10 ml/Chromium/ Copper/Manganese/ Seleni/Zn 0.5 ml/ Total Parenteral Nutrition/Amino Acids/Dextrose/ Fat Emulsion Intravenous 1,512 ml @ 63 mls/hr TPN CONT IV Last administered on 07/06/19at 22:06; Start 07/06/19 at 22:00; Stop 07/07/19 at 21:59; Status DC Calcium Carbonate/ Glycine (Tums) 500 mg PRN AFTMEALHC PRN PO INDIGESTION; Start 07/06/19 at 17:45; Stop 08/31/19 at 10:25; Status DC Calcium Gluconate (Calcium Gluconate) 2,000 mg 1X ONCE IVP Last administered on 07/07/19at 02:19; Start 07/07/19 at 02:15; Stop 07/07/19 at 02:16; Status DC Calcium Chloride 3000 mg/Sodium Chloride 1,030 ml @ 50 mls/hr [id number] IV Last administered on 07/09/19at 02:17; Start 07/07/19 at 08:00; Stop 07/09/19 at 15:23; Status DC Lorazepam (Ativan Inj) 1 mg PRN Q4HRS PRN IVP ANXIETY / AGITATION, 2nd choic Last administered on 08/05/19at 03:51; Start 07/07/19 at 09:00; Stop 08/05/19 at 09:19; Status DC Sodium Chloride 1,000 ml @ 1,000 mls/hr Q1H PRN IV hypotension; Start 07/07/19 at 08:56; Stop 07/07/19 at 14:55; Status DC Albumin Human 200 ml @ 200 mls/hr 1X PRN PRN IV Hypotension; Start 07/07/19 at 09:00; Stop 07/07/19 at 14:59; Status DC Diphenhydramine HCl (Benadryl) 25 mg 1X PRN PRN IV ITCHING; Start 07/07/19 at 09:00; Stop 07/08/19 at 08:59; Status DC Diphenhydramine HCl (Benadryl) 25 mg 1X PRN PRN IV ITCHING; Start 07/07/19 at 09:00; Stop 07/08/19 at 08:59; Status DC Sodium Chloride 1,000 ml @ 400 mls/hr Q2H30M PRN IV PATENCY; Start 07/07/19 at 08:56; Stop 07/07/19 at 20:55; Status DC Info (PHARMACY MONITORING -- do not chart) 1 each PRN DAILY PRN MC SEE COMMENTS; Start 07/07/19 at 09:00; Status UNV Info (PHARMACY MONITORING -- do not chart) 1 each PRN DAILY PRN MC SEE COMMENTS; Start 07/07/19 at 09:00; Stop 07/08/19 at 08:13; Status DC Digoxin (Lanoxin) 500 mcg 1X ONCE IV Last administered on 07/07/19at 10:04; Start 07/07/19 at 10:00; Stop 07/07/19 at 10:01; Status DC Digoxin (Lanoxin) 125 mcg 1X ONCE IV Last administered on 07/07/19at 17:10; Start 07/07/19 at 18:00; Stop 07/07/19 at 18:01; Status DC Magnesium Sulfate 100 ml @ 25 mls/hr 1X ONCE IV Last administered on 07/07/19at 12:48; Start 07/07/19 at 13:00; Stop 07/07/19 at 16:59; Status DC Sodium Chloride 90 meq/Magnesium Sulfate 10 meq/ Calcium Gluconate 20 meq/ Multivitamins 10 ml/Chromium/ Copper/Manganese/ Seleni/Zn 0.5 ml/ Total Parenteral Nutrition/Amino Acids/Dextrose/ Fat Emulsion Intravenous 1,512 ml @ 63 mls/hr TPN CONT IV Last administered on 07/07/19at 22:25; Start 07/07/19 at 22:00; Stop 07/08/19 at 21:59; Status DC Sodium Chloride 1,000 ml @ 1,000 mls/hr Q1H PRN IV hypotension; Start 07/08/19 at 08:05; Stop 07/08/19 at 14:04; Status DC Albumin Human 200 ml @ 200 mls/hr 1X ONCE IV Last administered on 07/08/19at 08:57; Start 07/08/19 at 08:15; Stop 07/08/19 at 09:14; Status DC Diphenhydramine HCl (Benadryl) 25 mg 1X PRN PRN IV ITCHING; Start 07/08/19 at 08:15; Stop 07/09/19 at 08:14; Status DC Diphenhydramine HCl (Benadryl) 25 mg 1X PRN PRN IV ITCHING; Start 07/08/19 at 08:15; Stop 07/09/19 at 08:14; Status DC Sodium Chloride 1,000 ml @ 400 mls/hr Q2H30M PRN IV PATENCY; Start 07/08/19 at 08:05; Stop 07/08/19 at 20:04; Status DC Info (PHARMACY MONITORING -- do not chart) 1 each PRN DAILY PRN MC SEE COMMENTS; Start 07/08/19 at 08:15; Stop 07/12/19 at 07:57; Status DC Sodium Chloride 90 meq/Potassium Chloride 15 meq/ Potassium Phosphate 10 mmol/ Magnesium Sulfate 10 meq/Calcium Gluconate 20 meq/ Multivitamins 10 ml/Chromium/ Copper/Manganese/ Seleni/Zn 0.5 ml/ Total Parenteral Nutrition/Amino Acids/ Dextrose/ Fat Emulsion Intravenous 1,512 ml @ 63 mls/hr TPN CONT IV Last administered on 07/08/19at 21:01; Start 07/08/19 at 22:00; Stop 07/09/19 at 21:59; Status DC Potassium Chloride/Water 100 ml @ 100 mls/hr 1X ONCE IV Last administered on 07/08/19at 14:09; Start 07/08/19 at 14:00; Stop 07/08/19 at 14:59; Status DC Benzocaine (Hurricaine One) 1 spray 1X ONCE MM Last administered on 07/08/19at 16:38; Start 07/08/19 at 14:30; Stop 07/08/19 at 14:31; Status DC Lidocaine HCl (Glydo (Lidocaine) Jelly) 1 ramu 1X ONCE MM Last administered on 07/08/19at 16:38; Start 07/08/19 at 14:30; Stop 07/08/19 at 14:31; Status DC Linezolid/Dextrose 300 ml @ 300 mls/hr Q12HR IV Last administered on 07/14/19at 21:04; Start 07/08/19 at 20:00; Stop 07/15/19 at 07:50; Status DC Acetaminophen (Tylenol) 650 mg PRN Q6HRS PRN PO MILD PAIN / TEMP; Start 07/09/19 at 03:30; Stop 07/09/19 at 03:36; Status DC Acetaminophen (Tylenol) 650 mg PRN Q6HRS PRN PEG MILD PAIN / TEMP Last administered on 08/04/19at 19:56; Start 07/09/19 at 03:36; Stop 08/31/19 at 10:25; Status DC Sodium Chloride 1,000 ml @ 1,000 mls/hr Q1H PRN IV hypotension; Start 07/09/19 at 07:50; Stop 07/09/19 at 13:49; Status DC Albumin Human 200 ml @ 200 mls/hr 1X PRN PRN IV Hypotension; Start 07/09/19 at 08:00; Stop 07/09/19 at 13:59; Status DC Sodium Chloride (Normal Saline Flush) 10 ml 1X PRN PRN IV AP catheter pack; Start 07/09/19 at 08:00; Stop 07/10/19 at 07:59; Status DC Sodium Chloride (Normal Saline Flush) 10 ml 1X PRN PRN IV [employer]FORMATION [employer]IST catheter pack; Start 07/09/19 at 08:00; Stop 07/10/19 at 07:59; Status DC Sodium Chloride 1,000 ml @ 400 mls/hr Q2H30M PRN IV PATENCY; Start 07/09/19 at 07:50; Stop 07/09/19 at 19:49; Status DC Info (PHARMACY MONITORING -- do not chart) 1 each PRN DAILY PRN MC SEE PIPE TS; Start 07/09/19 at 08:00; Status UNV Info (PHARMACY MONITORING -- do not chart) 1 each PRN DAILY PRN MC SEE COMMENTS; Start 07/09/19 at 08:00; Stop 07/11/19 at 08:25; Status DC Sodium Chloride 90 meq/Potassium Chloride 15 meq/ Potassium Phosphate 10 mmol/ Magnesium Sulfate 10 meq/Calcium Gluconate 20 meq/ Multivitamins 10 ml/Chromium/ Copper/Manganese/ Seleni/Zn 0.5 ml/ Total Parenteral Nutrition/Amino Acids/Dextrose/ Fat Emulsion Intravenous 1,512 ml @ 63 mls/hr TPN CONT IV Last administered on 07/09/19at 20:57; Start 07/09/19 at 22:00; Stop 07/10/19 at 21:59; Status DC Sodium Chloride 90 meq/Potassium Chloride 15 meq/ Potassium Phosphate 15 mmol/ Magnesium Sulfate 10 meq/Calcium Gluconate 20 meq/ Multivitamins 10 ml/Chromium/ Copper/Manganese/ Seleni/Zn 0.5 ml/ Total Parenteral Nutrition/Amino Acids/Dextrose/ Fat Emulsion Intravenous 1,512 ml @ 63 mls/hr TPN CONT IV ; S tart 07/10/19 at 22:00; Stop 07/10/19 at 14:16; Status DC Sodium Chloride 90 meq/Potassium Chloride 15 meq/ Potassium Phosphate 15 mmol/ Magnesium Sulfate 10 meq/Calcium Gluconate 20 meq/ Multivitamins 10 ml/Chromium/ Copper/Manganese/ Seleni/Zn 0.5 ml/ Total Parenteral Nutrition/Amino Acids/Dextrose/ Fat Emulsion Intravenous 1,200 ml @ 50 mls/hr TPN CONT IV ; Start 07/10/19 at 22:00; Stop 07/10/19 at 14:17; Status DC Sodium Chloride 90 meq/Potassium Chloride 15 meq/ Potassium Phosphate 10 mmol/ Magnesium Sulfate 10 meq/Calcium Gluconate 20 meq/ Multivitamins 10 ml/Chromium/ Copper/Manganese/ Seleni/Zn 0.5 ml/ Total Parenteral Nutrition/Amino Acids/Dextrose/ Fat Emulsion Intravenous 1,200 ml @ 50 mls/hr TPN CONT IV Last administered on 07/10/19at 23:29; Start 07/10/19 at 22:00; Stop 07/11/19 at 21:59; Status DC Sodium Chloride 1,000 ml @ 1,000 mls/hr Q1H PRN IV hypotension; Start 07/11/19 at 07:28; Stop 07/11/19 at 13:27; Status DC Albumin Human 200 ml @ 200 mls/hr 1X ONCE IV Last administered on 07/11/19at 08:51; Start 07/11/19 at 07:30; Stop 07/11/19 at 08:29; Status DC Diphenhydramine HCl (Benadryl) 25 mg 1X PRN PRN IV ITCHING; Start 07/11/19 at 07:30; Stop 07/12/19 at 07:29; Status DC Diphenhydramine HCl (Benadryl) 25 mg 1X PRN PRN IV ITCHING; Start 07/11/19 at 07:30; Stop 07/12/19 at 07:29; Status DC Sodium Chloride 1,000 ml @ 400 mls/hr Q2H30M PRN IV PATENCY; Start 07/11/19 at 07:28; Stop 07/11/19 at 19:27; Status DC Info (PHARMACY MONITORING -- do not chart) 1 each PRN DAILY PRN MC SEE COMMENTS; Start 07/11/19 at 07:30; Stop 07/22/19 at 13:01; Status DC Metronidazole 100 ml @ 100 mls/hr Q6HRS IV Last administered on 07/27/19at 06:26; Start 07/11/19 at 08:30; Stop 07/27/19 at 09:58; Status DC Micafungin Sodium 100 mg/Dextrose 100 ml @ 100 mls/hr Q24H IV Last administered on 08/18/19at 08:18; Start 07/11/19 at 09:00; Stop 08/18/19 at 20:58; Status DC Propofol 0 ml @ As Directed STK-MED ONCE IV ; Start 07/11/19 at 07:53; Stop 07/11/19 at 07:53; Status DC Etomidate (Amidate) 20 mg STK-MED ONCE IV ; Start 07/11/19 at 07:53; Stop 07/11/19 at 07:54; Status DC Midazolam HCl (Versed) 5 mg STK-MED ONCE .ROUTE ; Start 07/11/19 at 07:57; Stop 07/11/19 at 07:57; Status DC Fentanyl Citrate 30 ml @ 0 mls/hr CONT PRN IV SEE PROTOCOL Last administered on 08/05/19at 06:12; Start 07/11/19 at 08:15; Stop 08/05/19 at 09:19; Status DC Artificial Tears (Artificial Tears) 1 drop PRN Q1HR PRN OU DRY EYE, 1st choice; Start 07/11/19 at 08:15; Stop 08/17/19 at 05:31; Status DC Midazolam HCl 50 mg/Sodium Chloride 50 ml @ 0 mls/hr CONT PRN IV SEE PROTOCOL Last administered on 07/14/19at 22:39; Start 07/11/19 at 08:15; Stop 07/16/19 at 15:59; Status DC Etomidate (Amidate) 8 mg 1X ONCE IV Last administered on 07/11/19at 08:33; Start 07/11/19 at 08:30; Stop 07/11/19 at 08:31; Status DC Succinylcholine Chloride (Anectine) 120 mg 1X ONCE IV Last administered on 07/11/19at 08:34; Start 07/11/19 at 08:30; Stop 07/11/19 at 08:31; Status DC Midazolam HCl (Versed) 5 mg 1X ONCE IV ; Start 07/11/19 at 08:30; Stop 07/11/19 at 08:31; Status DC Potassium Chloride 15 meq/ Bicarbonate Dialysis Soln w/ out KCl 5,007.5 ml @ 1,000 mls/ hr Q5H1M IV Last administered on 07/12/19at 11:11; Start 07/11/19 at 12:00; Stop 07/12/19 at 11:15; Status DC Potassium Chloride 15 meq/ Bicarbonate Dialysis Soln w/ out KCl 5,007.5 ml @ 1,000 mls/ hr Q5H1M IV Last administered on 07/12/19at 11:12; Start 07/11/19 at 12:00; Stop 07/12/19 at 11:17; Status DC Potassium Chloride 15 meq/ Bicarbonate Dialysis Soln w/ out KCl 5,007.5 ml @ 1,000 mls/ hr Q5H1M IV Last administered on 07/12/19at 11:11; Start 07/11/19 at 12:00; Stop 07/12/19 at 11:19; Status DC Sodium Chloride 90 meq/Potassium Chloride 15 meq/ Potassium Phosphate 10 mmol/ Magnesium Sulfate 10 meq/Calcium Gluconate 20 meq/ Multivitamins 10 ml/Chromium/ Copper/Manganese/ Seleni/Zn 0.5 ml/ Total Parenteral Nutrition/Amino Acids/Dextrose/ Fat Emulsion Intravenous 1,400 ml @ 58.333 mls/ hr TPN CONT IV Last administered on 07/11/19at 21:42; Start 07/11/19 at 22:00; Stop 07/12/19 at 21:59; Status DC Heparin Sodium (Porcine) (Heparin Sodium) 5,000 unit Q8HRS SQ Last administered on 07/16/19at 05:55; Start 07/11/19 at 15:00; Stop 07/16/19 at 13:28; Status DC Meropenem 500 mg/ Sodium Chloride 50 ml @ 100 mls/hr Q6HRS IV Last administered on 07/13/19at 06:00; Start 07/12/19 at 09:00; Stop 07/13/19 at 07:29; Status DC Potassium Phosphate 20 mmol/ Sodium Chloride 106.6667 ml @ 51.667 m... 1X ONCE IV Last administered on 07/12/19at 11:22; Start 07/12/19 at 10:15; Stop 07/12/19 at 12:18; Status DC Acetaminophen (Tylenol Supp) 650 mg PRN Q6HRS PRN [place] MILD PAIN / TEMP > 100.3'F Last administered on 11/12/19at 19:52; Start 07/12/19 at 10:30 Potassium Chloride/Water 100 ml @ 100 mls/hr Q1H IV Last administered on 07/12/19at 12:12; Start 07/12/19 at 11:00; Stop 07/12/19 at 12:59; Status DC Potassium Chloride 20 meq/ Bicarbonate Dialysis Soln w/ out KCl 5,010 ml @ 1,000 mls/hr Q5H1M IV Last administered on 07/13/19at 08:48; Start 07/12/19 at 12:00; Stop 07/13/19 at 13:03; Status DC Potassium Chloride 20 meq/ Bicarbonate Dialysis Soln w/ out KCl 5,010 ml @ 1,000 mls/hr Q5H1M IV Last administered on 07/17/19at 14:52; Start 07/12/19 at 11:30; Stop 07/17/19 at 19:59; Status DC Potassium Chloride 20 meq/ Bicarbonate Dialysis Soln w/ out KCl 5,010 ml @ 1,000 mls/hr Q5H1M IV Last administered on 07/17/19at 14:53; Start 07/12/19 at 11:30; Stop 07/17/19 at 19:59; Status DC Sodium Chloride 90 meq/Potassium Chloride 15 meq/ Potassium Phosphate 15 mmol/ Magnesium Sulfate 10 meq/Calcium Gluconate 15 meq/ Multivitamins 10 ml/Chromium/ Copper/Manganese/ Seleni/Zn 0.5 ml/ Total Parenteral Nutrition/Amino Acids/Dextrose/ Fat Emulsion Intravenous 1,400 ml @ 58.333 mls/ hr TPN CONT IV Last administered on 07/12/19at 22:17; Start 07/12/19 at 22:00; Stop 07/13/19 at 21:59; Status DC Cefepime HCl (Maxipime) 2 gm Q12HR IVP Last administered on 07/26/19at 20:56; Start 07/13/19 at 09:00; Stop 07/27/19 at 09:58; Status DC Daptomycin 500 mg/ Sodium Chloride 50 ml @ 100 mls/hr Q48H IV Last administered on 07/29/19at 09:57; Start 07/13/19 at 08:30; Stop 07/29/19 at 10:07; Status DC Lidocaine HCl (Buffered Lidocaine 1%) 3 ml 1X ONCE INJ Last administered on 07/13/19at 10:27; Start 07/13/19 at 10:30; Stop 07/13/19 at 10:31; Status DC Potassium Phosphate 20 mmol/ Sodium Chloride 106.6667 ml @ 51.667 m... 1X ONCE IV Last administered on 07/13/19at 12:51; Start 07/13/19 at 13:00; Stop 07/13/19 at 15:03; Status DC Sodium Chloride 90 meq/Potassium Chloride 15 meq/ Potassium Phosphate 18 mmol/ Magnesium Sulfate 8 meq/Calcium Gluconate 15 meq/ Multivitamins 10 ml/Chromium/ Copper/Manganese/ Seleni/Zn 0.5 ml/ Total Parenteral Nutrition/Amino Acids/Dextrose/ Fat Emulsion Intravenous 1,400 ml @ 58.333 mls/ hr TPN CONT IV Last administered on 07/13/19at 22:16; Start 07/13/19 at 22:00; Stop 07/14/19 at 21:59; Status DC Potassium Chloride 20 meq/ Bicarbonate Dialysis Soln w/ out KCl 5,010 ml @ 1,000 mls/hr Q5H1M IV Last administered on 07/17/19at 14:54; Start 07/13/19 at 16:00; Stop 07/17/19 at 19:59; Status DC Multi-Ingred Cream/Lotion/Oil/ Oint (Artificial Tears Eye Ointment) 1 ramu PRN Q1HR PRN OU DRY EYE, 2nd choice Last administered on 08/01/19at 08:19; Start 07/13/19 at 17:30; Stop 09/21/19 at 14:39; Status DC Sodium Chloride 90 meq/Potassium Chloride 15 meq/ Potassium Phosphate 18 mmol/ Magnesium Sulfate 8 meq/Calcium Gluconate 15 meq/ Multivitamins 10 ml/Chromium/ Copper/Manganese/ Seleni/Zn 0.5 ml/ Total Parenteral Nutrition/Amino Acids/Dextrose/ Fat Emulsion Intravenous 1,400 ml @ 58.333 mls/ hr TPN CONT IV Last administered on 07/14/19at 22:00; Start 07/14/19 at 22:00; Stop 07/15/19 at 21:59; Status DC Albumin Human 500 ml @ 125 mls/hr 1X ONCE IV ; Start 07/14/19 at 14:15; Stop 07/14/19 at 18:14; Status DC Sodium Chloride 90 meq/Potassium Chloride 15 meq/ Potassium Phosphate 18 mmol/ Magnesium Sulfate 8 meq/Calcium Gluconate 15 meq/ Multivitamins 10 ml/Chromium/ Copper/Manganese/ Seleni/Zn 0.5 ml/ Insulin Human Regular 10 unit/ Total Parenteral Nutrition/Amino Acids/Dextrose/ Fat Emulsion Intravenous 1,400 ml @ 58.333 mls/ hr TPN CONT IV Last administered on 07/15/19at 21:43; Start 07/15/19 at 22:00; Stop 07/16/19 at 21:59; Status DC Lidocaine HCl (Buffered Lidocaine 1%) 3 ml STK-MED ONCE .ROUTE ; Start 07/13/19 at 10:00; Stop 07/15/19 at 13:57; Status DC Midazolam HCl 100 mg/Sodium Chloride 100 ml @ 7 mls/hr CONT PRN IV SEE PROTOCOL Last administered on 07/27/19at 15:35; Start 07/16/19 at 16:00; Stop 09/21/19 at 14:38; Status DC Sodium Chloride 90 meq/Potassium Chloride 15 meq/ Potassium Phosphate 18 mmol/ Magnesium Sulfate 8 meq/Calcium Gluconate 15 meq/ Multivitamins 10 ml/Chromium/ Copper/Manganese/ Seleni/Zn 0.5 ml/ Insulin Human Regular 15 unit/ Total Parenteral Nutrition/Amino Acids/Dextrose/ Fat Emulsion Intravenous 1,400 ml @ 58.333 mls/ hr TPN CONT IV Last administered on 07/16/19at 20:34; Start 07/16/19 at 22:00; Stop 07/17/19 at 21:59; Status DC Info (Icu Electrolyte Protocol) 1 ea CONT PRN PRN MC PER PROTOCOL; Start 07/17/19 at 13:15 Sodium Chloride 90 meq/Potassium Chloride 15 meq/ Potassium Phosphate 18 mmol/ Magnesium Sulfate 8 meq/Calcium Gluconate 15 meq/ Multivitamins 10 ml/Chromium/ Copper/Manganese/ Seleni/Zn 0.5 ml/ Insulin Human Regular 15 unit/ Total Parenteral Nutrition/Amino Acids/Dextrose/ Fat Emulsion Intravenous 1,400 ml @ 58.333 mls/ hr TPN CONT IV Last administered on 07/17/19at 22:05; Start 07/17/19 at 22:00; Stop 07/18/19 at 21:59; Status DC Potassium Chloride 15 meq/ Bicarbonate Dialysis Soln w/ out KCl 5,007.5 ml @ 1,000 mls/ hr Q5H1M IV Last administered on 07/20/19at 18:14; Start 07/17/19 at 20:00; Stop 07/21/19 at 13:08; Status DC Potassium Chloride 15 meq/ Bicarbonate Dialysis Soln w/ out KCl 5,007.5 ml @ 1,000 mls/ hr Q5H1M IV Last administered on 07/20/19at 18:14; Start 07/17/19 at 20:00; Stop 07/21/19 at 13:08; Status DC Potassium Chloride 15 meq/ Bicarbonate Dialysis Soln w/ out KCl 5,007.5 ml @ 1,000 mls/ hr Q5H1M IV Last administered on 07/20/19at 18:14; Start 07/17/19 at 20:00; Stop 07/21/19 at 13:08; Status DC Iohexol (Omnipaque 240 Mg/ml) 30 ml 1X ONCE PO Last administered on 07/18/19at 11:30; Start 07/18/19 at 11:30; Stop 07/18/19 at 11:33; Status DC Info (CONTRAST GIVEN -- Rx MONITORING) 1 each PRN DAILY PRN MC SEE COMMENTS; Start 07/18/19 at 11:45; Stop 07/20/19 at 11:44; Status DC Sodium Chloride 90 meq/Potassium Chloride 15 meq/ Potassium Phosphate 18 mmol/ Magnesium Sulfate 8 meq/Calcium Gluconate 15 meq/ Multivitamins 10 ml/Chromium/ Copper/Manganese/ Seleni/Zn 0.5 ml/ Insulin Human Regular 15 unit/ Total Parenteral Nutrition/Amino Acids/Dextrose/ Fat Emulsion Intravenous 1,400 ml @ 58.333 mls/ hr TPN CONT IV Last administered on 07/18/19at 21:47; Start 07/18/19 at 22:00; Stop 07/19/19 at 21:59; Status DC Sodium Chloride 90 meq/Potassium Chloride 15 meq/ Potassium Phosphate 18 mmol/ Magnesium Sulfate 8 meq/Calcium Gluconate 15 meq/ Multivitamins 10 ml/Chromium/ Copper/Manganese/ Seleni/Zn 0.5 ml/ Insulin Human Regular 20 unit/ Total Pare nteral Nutrition/Amino Acids/Dextrose/ Fat Emulsion Intravenous 1,400 ml @ 58.333 mls/ hr TPN CONT IV Last administered on 07/19/19at 21:36; Start 07/19/19 at 22:00; Stop 07/20/19 at 21:59; Status DC Alteplase, Recombinant (Cathflo For Central Catheter Clearance) 1 mg 1X ONCE INT CAT Last administered on 07/19/19at 20:03; Start 07/19/19 at 19:30; Stop 07/19/19 at 19:46; Status DC Alteplase, Recombinant (Cathflo For Central Catheter Clearance) 1 mg 1X ONCE INT CAT Last administered on 07/19/19at 22:05; Start 07/19/19 at 22:00; Stop 07/19/19 at 22:01; Status DC Sodium Chloride 90 meq/Potassium Chloride 15 meq/ Potassium Phosphate 18 mmol/ Magnesium Sulfate 8 meq/Calcium Gluconate 15 meq/ Multivitamins 10 ml/Chromium/ Copper/Manganese/ Seleni/Zn 0.5 ml/ Insulin Human Regular 20 unit/ Total Parenteral Nutrition/Amino Acids/Dextrose/ Fat Emulsion Intravenous 1,400 ml @ 58.333 mls/ hr TPN CONT IV Last administered on 07/20/19at 21:30; Start 07/20/19 at 22:00; Stop 07/21/19 at 21:59; Status DC Dexmedetomidine HCl 400 mcg/ Sodium Chloride 100 ml @ 0 mls/hr CONT PRN IV ANXIETY / AGITATION Last administered on 09/17/19at 12:57; Start 07/21/19 at 08:15; Stop 09/17/19 at 18:31; Status DC Sodium Chloride 500 ml @ 500 mls/hr 1X PRN PRN IV ELEVATED BP, SEE COMMENTS; Start 07/21/19 at 08:15 Atropine Sulfate (ATROPINE 0.5mg SYRINGE) 0.5 mg PRN Q5MIN PRN IV SEE COMMENTS; Start 07/21/19 at 08:15 Furosemide (Lasix) 20 mg 1X ONCE IVP Last administered on 07/21/19at 08:19; Start 07/21/19 at 08:15; Stop 07/21/19 at 08:16; Status DC Lidocaine HCl (Buffered Lidocaine 1%) 3 ml STK-MED ONCE .ROUTE ; Start 07/21/19 at 08:39; Stop 07/21/19 at 08:39; Status DC Lidocaine HCl (Buffered Lidocaine 1%) 6 ml 1X ONCE INJ Last administered on 07/21/19at 09:05; Start 07/21/19 at 09:00; Stop 07/21/19 at 09:06; Status DC Sodium Chloride 90 meq/Potassium Chloride 15 meq/ Potassium Phosphate 18 mmol/ Magnesium Sulfate 8 meq/Calcium Gluconate 15 meq/ Multivitamins 10 ml/Chromium/ Copper/Manganese/ Seleni/Zn 0.5 ml/ Insulin Human Regular 20 unit/ Total Parenteral Nutrition/Amino Acids/Dextrose/ Fat Emulsion Intravenous 1,400 ml @ 58.333 mls/ hr TPN CONT IV Last administered on 07/21/19at 22:45; Start 07/21/19 at 22:00; Stop 07/22/19 at 21:59; Status DC Sodium Chloride 1,000 ml @ 1,000 mls/hr Q1H PRN IV hypotension; Start 07/22/19 at 07:30; Stop 07/22/19 at 13:29; Status DC Albumin Human 200 ml @ 200 mls/hr 1X PRN PRN IV Hypotension Last administered on 07/22/19at 09:36; Start 07/22/19 at 07:30; Stop 07/22/19 at 13:29; Status DC Sodium Chloride (Normal Saline Flush) 10 ml 1X PRN PRN IV AP catheter pack; Start 07/22/19 at 07:30; Stop 07/22/19 at 21:29; Status DC Sodium Chloride (Normal Saline Flush) 10 ml 1X PRN PRN IV HE[employer] 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 SPECIALIST catheter pack; Start 07/22/19 at 07:30; Stop 07/23/19 at 07:29; Status DC Sodium Chloride 1,000 ml @ 400 mls/hr Q2H30M PRN IV PATENCY; Start 07/22/19 at 07:30; Stop 07/22/19 at 19:29; Status DC Info (PHARMACY MONITORING -- do not chart) 1 each PRN DAILY PRN MC SEE COMMENTS; Start 07/22/19 at 07:30; Stop 07/22/19 at 13:02; Status DC Info (PHARMACY MONITORING -- do not chart) 1 each PRN DAILY PRN MC SEE COMMENTS; Start 07/22/19 at 07:30; Stop 07/24/19 at 12:45; Status DC Sodium Chloride 90 meq/Potassium Chloride 15 meq/ Potassium Phosphate 10 mmol/ Magnesium Sulfate 8 meq/Calcium Gluconate 15 meq/ Multivitamins 10 ml/Chromium/ Copper/Manganese/ Seleni/Zn 0.5 ml/ Insulin Human Regular 25 unit/ Total Parenteral Nutrition/Amino Acids/Dextrose/ Fat Emulsion Intravenous 1,400 ml @ 58.333 mls/ hr TPN CONT IV Last administered on 07/22/19at 22:19; Start 07/22/19 at 22:00; Stop 07/23/19 at 21:59; Status DC Heparin Sodium (Porcine) (Heparin Sodium) 5,000 unit Q12HR SQ Last administered on 08/14/19at 08:59; Start 07/22/19 at 21:00; Stop 08/14/19 at 10:05; Status DC Ondansetron HCl (Zofran) 4 mg PRN Q6HRS PRN IV NAUSEA/VOMITING; Start 07/25/19 at 07:00; Stop 07/26/19 at 06:59; Status DC Fentanyl Citrate (Fentanyl 2ml Vial) 25 mcg PRN Q5MIN PRN IV MILD PAIN 1-3; Start 07/25/19 at 07:00; Stop 07/26/19 at 06:59; Status DC Fentanyl Citrate (Fentanyl 2ml Vial) 50 mcg PRN Q5MIN PRN IV MODERATE TO SEVERE PAIN; Start 07/25/19 at 07:00; Stop 07/26/19 at 06:59; Status DC Ringer's Solution 1,000 ml @ 30 mls/hr Q24H IV ; Start 07/25/19 at 07:00; Stop 07/25/19 at 18:59; Status DC Lidocaine HCl (Xylocaine-Mpf 1% 2ml Vial) 2 ml PRN 1X PRN ID PRIOR TO IV START; Start 07/25/19 at 07:00; Stop 07/26/19 at 06:59; Status DC Prochlorperazine Edisylate (Compazine) 5 mg PACU PRN PRN IV NAUSEA, MRX1; Start 07/25/19 at 07:00; Stop 07/26/19 at 06:59; Status DC Sodium Chloride 1,000 ml @ 1,000 mls/hr Q1H PRN IV hypotension; Start 07/23/19 at 09:10; Stop 07/23/19 at 15:09; Status DC Albumin Human 200 ml @ 200 mls/hr 1X PRN PRN IV Hypotension Last administered on 07/23/19at 10:10; Start 07/23/19 at 09:15; Stop 07/23/19 at 15:14; Status DC Sodium Chloride 1,000 ml @ 400 mls/hr Q2H30M PRN IV PATENCY; Start 07/23/19 at 09:10; Stop 07/23/19 at 21:09; Status DC Info (PHARMACY MONITORING -- do not chart) 1 each PRN DAILY PRN MC SEE COMMENTS; Start 07/23/19 at 09:15; Stop 07/24/19 at 12:45; Status DC Info (PHARMACY MONITORING -- do not chart) 1 each PRN DAILY PRN MC SEE COMMENTS; Start 07/23/19 at 09:15; Stop 07/24/19 at 12:45; Status DC Sodium Chloride 90 meq/Potassium Chloride 15 meq/ Potassium Phosphate 10 mmol/ Magnesium Sulfate 8 meq/Calcium Gluconate 15 meq/ Multivitamins 10 ml/Chromium/ Copper/Manganese/ Seleni/Zn 0.5 ml/ Insulin Human Regular 25 unit/ Total Parenteral Nutrition/Amino Acids/Dextrose/ Fat Emulsion Intravenous 1,400 ml @ 58.333 mls/ hr TPN CONT IV Last administered on 07/23/19at 22:10; Start 07/23/19 at 22:00; Stop 07/24/19 at 21:59; Status DC Magnesium Sulfate 50 ml @ 25 mls/hr PRN DAILY PRN IV for Mag < 1.7 on am labs Last administered on 10/06/19at 10:57; Start 07/24/19 at 09:15 Sodium Chloride 90 meq/Potassium Chloride 15 meq/ Potassium Phosphate 10 mmol/ Magnesium Sulfate 8 meq/Calcium Gluconate 15 meq/ Multivitamins 10 ml/Chromium/ Copper/Manganese/ Seleni/Zn 0.5 ml/ Insulin Human Regular 25 unit/ Total Parenteral Nutrition/Amino Acids/Dextrose/ Fat Emulsion Intravenous 1,400 ml @ 58.333 mls/ hr TPN CONT IV Last administered on 07/24/19at 21:20; Start 07/24/19 at 22:00; Stop 07/25/19 at 21:59; Status DC Sodium Chloride 1,000 ml @ 1,000 mls/hr Q1H PRN IV hypotension; Start 07/24/19 at 12:23; Stop 07/24/19 at 18:22; Status DC Albumin Human 200 ml @ 200 mls/hr 1X ONCE IV Last administered on 07/24/19at 13:34; Start 07/24/19 at 12:30; Stop 07/24/19 at 13:29; Status DC Diphenhydramine HCl (Benadryl) 25 mg 1X PRN PRN IV ITCHING; Start 07/24/19 at 12:30; Stop 07/25/19 at 12:29; Status DC Diphenhydramine HCl (Benadryl) 25 mg 1X PRN PRN IV ITCHING; Start 07/24/19 at 12:30; Stop 07/25/19 at 12:29; Status DC Info (PHARMACY MONITORING -- do not chart) 1 each PRN DAILY PRN MC SEE COMMENTS; Start 07/24/19 at 12:30; Status Cancel Bupivacaine HCl/ Epinephrine Bitart (Sensorcain-Epi 0.5%-1:[id number] Mpf) 30 ml STK-MED ONCE .ROUTE Last administered on 07/25/19at 11:44; Start 07/25/19 at 11:00; Stop 07/25/19 at 11:01; Status DC Cellulose (Surgicel Fibrillar 1x2) 1 each STK-MED ONCE .ROUTE ; Start 07/25/19 at 11:00; Stop 07/25/19 at 11:01; Status DC Sodium Chloride 90 meq/Potassium Chloride 15 meq/ Potassium Phosphate 10 mmol/ Magnesium Sulfate 12 meq/Calcium Gluconate 15 meq/ Multivitamins 10 ml/Chromium/ Copper/Manganese/ Seleni/Zn 0.5 ml/ Insulin Human Regular 25 unit/ Total Parenteral Nutrition/Amino Acids/Dextrose/ Fat Emulsion Intravenous 1,400 ml @ 58.333 mls/ hr TPN CONT IV Last administered on 07/25/19at 22:24; Start 07/25/19 at 22:00; Stop 07/26/19 at 21:59; Status DC Propofol 20 ml @ As Directed STK-MED ONCE IV ; Start 07/25/19 at 11:07; Stop 07/25/19 at 11:07; Status DC Cellulose (Surgicel Hemostat 4x8) 1 each STK-MED ONCE .ROUTE Last administered on 07/25/19at 11:44; Start 07/25/19 at 11:55; Stop 07/25/19 at 11:56; Status DC Sevoflurane (Ultane) 60 ml STK-MED ONCE IH ; Start 07/25/19 at 12:46; Stop 07/25/19 at 12:46; Status DC Sodium Chloride 1,000 ml @ 1,000 mls/hr Q1H PRN IV hypotension; Start 07/25/19 at 13:51; Stop 07/25/19 at 19:50; Status DC Albumin Human 200 ml @ 200 mls/hr 1X PRN PRN IV Hypotension Last administered on 07/25/19at 14:51; Start 07/25/19 at 14:00; Stop 07/25/19 at 19:59; Status DC Diphenhydramine HCl (Benadryl) 25 mg 1X PRN PRN IV ITCHING; Start 07/25/19 at 14:00; Stop 07/26/19 at 13:59; Status DC Diphenhydramine HCl (Benadryl) 25 mg 1X PRN PRN IV ITCHING; Start 07/25/19 at 14:00; Stop 07/26/19 at 13:59; Status DC Sodium Chloride 1,000 ml @ 400 mls/hr Q2H30M PRN IV PATENCY; Start 07/25/19 at 13:51; Stop 07/26/19 at 01:50; Status DC Info (PHARMACY MONITORING -- do not chart) 1 each PRN DAILY PRN MC SEE COMMENTS; Start 07/25/19 at 14:00; Stop 07/28/19 at 08:16; Status DC Heparin Sodium (Porcine) (Hep Lock Adult) 500 unit STK-MED ONCE IVP ; Start 07/26/19 at 09:29; Stop 07/26/19 at 09:30; Status DC Sodium Chloride 1,000 ml @ 1,000 mls/hr Q1H PRN IV hypotension; Start 07/26/19 at 10:43; Stop 07/26/19 at 16:42; Status DC Sodium Chloride 1,000 ml @ 400 mls/hr Q2H30M PRN IV PATENCY; Start 07/26/19 at 10:43; Stop 07/26/19 at 22:42; Status DC Info (PHARMACY MONITORING -- do not chart) 1 each PRN DAILY PRN MC SEE COMMENTS; Start 07/26/19 at 10:45; Status UNV Info (PHARMACY MONITORING -- do not chart) 1 each PRN DAILY PRN MC SEE COMMENTS; Start 07/26/19 at 10:45; Status UNV Sodium Chloride 90 meq/Potassium Chloride 15 meq/ Magnesium Sulfate 12 m eq/Calcium Gluconate 15 meq/ Multivitamins 10 ml/Chromium/ Copper/Manganese/ Seleni/Zn 0.5 ml/ Insulin Human Regular 25 unit/ Total Parenteral Nutrition/Amino Acids/Dextrose/ Fat Emulsion Intravenous 1,400 ml @ 58.333 mls/ hr TPN CONT IV Last administered on 07/26/19at 22:13; Start 07/26/19 at 22:00; Stop 07/27/19 at 21:59; Status DC Sodium Chloride 1,000 ml @ 1,000 mls/hr Q1H PRN IV hypotension; Start 07/27/19 at 07:50; Stop 07/27/19 at 13:49; Status DC Albumin Human 200 ml @ 200 mls/hr 1X ONCE IV ; Start 07/27/19 at 08:00; Stop 07/27/19 at 08:53; Status DC Diphenhydramine HCl (Benadryl) 25 mg 1X PRN PRN IV ITCHING; Start 07/27/19 at 08:00; Stop 07/28/19 at 07:59; Status DC Diphenhydramine HCl (Benadryl) 25 mg 1X PRN PRN IV ITCHING; Start 07/27/19 at 08:00; Stop 07/28/19 at 07:59; Status DC Info (PHARMACY MONITORING -- do not chart) 1 each PRN DAILY PRN MC SEE COMMENTS; Start 07/27/19 at 08:00; Stop 07/28/19 at 08:16; Status DC Albumin Human 50 ml @ 50 mls/hr 1X ONCE IV ; Start 07/27/19 at 08:53; Stop at 08:56; Status DC Albumin Human 200 ml @ 50 mls/hr PRN 1X PRN IV HYPOTENSION Last administered on 08/02/19at 11:54; Start 07/27/19 at 09:00; Stop 09/08/19 at 11:14; Status DC Meropenem 500 mg/ Sodium Chloride 50 ml @ 100 mls/hr Q12H IV Last administered on 08/16/19at 10:45; Start 07/27/19 at 10:00; Stop 08/16/19 at 12:37; Status DC Sodium Chloride 90 meq/Magnesium Sulfate 12 meq/ Calcium Gluconate 15 meq/ Multivitamins 10 ml/Chromium/ Copper/Manganese/ Seleni/Zn 0.5 ml/ Insulin Human Regular 25 unit/ Total Parenteral Nutrition/Amino Acids/Dextrose/ Fat Emulsion Intravenous 1,400 ml @ 58.333 mls/ hr TPN CONT IV Last administered on 07/27/19at 21:41; Start 07/27/19 at 22:00; Stop 07/28/19 at 21:59; Status DC Sodium Chloride 1,000 ml @ 1,000 mls/hr Q1H PRN IV hypotension; Start 07/28/19 at 07:58; Stop 07/28/19 at 13:57; Status DC Albumin Human 200 ml @ 200 mls/hr 1X PRN PRN IV Hypotension Last administered on 07/28/19at 09:30; Start 07/28/19 at 08:00; Stop 07/28/19 at 13:59; Status DC Sodium Chloride 1,000 ml @ 400 mls/hr Q2H30M PRN IV PATENCY; Start 07/28/19 at 07:58; Stop 07/28/19 at 19:57; Status DC Info (PHARMACY MONITORING -- do not chart) 1 each PRN DAILY PRN MC SEE COMMENTS; Start 07/28/19 at 08:00; Status Cancel Info (PHARMACY MONITORING -- do not chart) 1 each PRN DAILY PRN MC SEE COMMENTS; Start 07/28/19 at 08:15; Status UNV Sodium Chloride 90 meq/Potassium Phosphate 5 mmol/ Magnesium Sulfate 12 meq/Calcium Gluconate 15 meq/ Multivitamins 10 ml/Chromium/ Copper/Manganese/ Seleni/Zn 0.5 ml/ Insulin Human Regular 30 unit/ Total Parenteral Nutrition/Amino Acids/Dextrose/ Fat Emulsion Intravenous 1,400 ml @ 58.333 mls/ hr TPN CONT IV Last administered on 07/28/19at 22:08; Start 07/28/19 at 22:00; Stop 07/29/19 at 21:59; Status DC Linezolid/Dextrose 300 ml @ 300 mls/hr Q12HR IV Last administered on 08/08/19at 20:40; Start 07/29/19 at 11:00; Stop 08/09/19 at 08:10; Status DC Sodium Chloride 90 meq/Potassium Phosphate 15 mmol/ Magnesium Sulfate 12 meq/Calcium Gluconate 15 meq/ Multivitamins 10 ml/Chromium/ Copper/Manganese/ Seleni/Zn 0.5 ml/ Insulin Human Regular 30 unit/ Total Parenteral Nutrition/Amino Acids/Dextrose/ Fat Emulsion Intravenous 1,400 ml @ 58.333 mls/ hr TPN CONT IV Last administered on 07/29/19at 21:49; Start 07/29/19 at 22:00; Stop 07/30/19 at 21:59; Status DC Sodium Chloride 90 meq/Potassium Phosphate 15 mmol/ Magnesium Sulfate 12 meq/Calcium Gluconate 15 meq/ Multivitamins 10 ml/Chromium/ Copper/Manganese/ Seleni/Zn 0.5 ml/ Insulin Human Regular 40 unit/ Total Parenteral Nutrition /Amino Acids/Dextrose/ Fat Emulsion Intravenous 1,400 ml @ 58.333 mls/ hr TPN CONT IV Last administered on 07/30/19at 21:21; Start 07/30/19 at 22:00; Stop 07/31/19 at 21:59; Status DC Sodium Chloride 1,000 ml @ 1,000 mls/hr Q1H PRN IV hypotension; Start 07/30/19 at 13:26; Stop 07/30/19 at 19:25; Status DC Albumin Human 200 ml @ 200 mls/hr 1X PRN PRN IV Hypotension Last administered on 07/30/19at 15:00; Start 07/30/19 at 13:30; Stop 07/30/19 at 19:29; Status DC Sodium Chloride (Normal Saline Flush) 10 ml 1X PRN PRN IV AP catheter pack; Start 07/30/19 at 13:30; Stop 07/31/19 at 13:29; Status DC Sodium Chloride (Normal Saline Flush) 10 ml 1X PRN PRN IV HE[employer] INFORMATION SPECIALIST catheter pack; Start 07/30/19 at 13:30; Stop 07/31/19 at 13:29; Status DC Sodium Chloride 1,000 ml @ 400 mls/hr Q2H30M PRN IV PATENCY; Start 07/30/19 at 13:26; Stop 07/31/19 at 01:25; Status DC Info (PHARMACY MONITORING -- do not chart) 1 each PRN DAILY PRN MC SEE COMMENTS; Start 07/30/19 at 13:30; Stop 07/30/19 at 13:33; Status DC Info (PHARMACY MONITORING -- do not chart) 1 each PRN DAILY PRN MC SEE COMMENTS; Start 07/30/19 at 13:30; Stop 07/30/19 at 13:34; Status DC Sodium Chloride 90 meq/Potassium Phosphate 19 mmol/ Magnesium Sulfate 12 meq/Calcium Gluconate 15 meq/ Multivitamins 10 ml/Chromium/ Copper/Manganese/ Seleni/Zn 0.5 ml/ Insulin Human Regular 40 unit/ Total Parenteral Nutrition/Amino Acids/Dextrose/ Fat Emulsion Intravenous 1,400 ml @ 58.333 mls/ hr TPN CONT IV Last administered on 07/31/19at 21:54; Start 07/31/19 at 22:00; Stop 08/01/19 at 21:59; Status DC Sodium Chloride 1,000 ml @ 1,000 mls/hr Q1H PRN IV hypotension; Start 08/01/19 at 09:35; Stop 08/01/19 at 15:34; Status DC Albumin Human 200 ml @ 200 mls/hr 1X PRN PRN IV Hypotension; Start 08/01/19 at 09:45; Stop 08/01/19 at 15:44; Status DC Diphenhydramine HCl (Benadryl) 25 mg 1X PRN PRN IV ITCHING; Start 08/01/19 at 09:45; Stop 08/02/19 at 09:44; Status DC Diphenhydramine HCl (Benadryl) 25 mg 1X PRN PRN IV ITCHING; Start 08/01/19 at 09:45; Stop 08/02/19 at 09:44; Status DC Sodium Chloride 1,000 ml @ 400 mls/hr Q2H30M PRN IV PATENCY; Start 08/01/19 at 09:35; Stop 08/01/19 at 21:34; Status DC Info (PHARMACY MONITORING -- do not chart) 1 each PRN DAILY PRN MC SEE COMMENTS; Start 08/01/19 at 09:45; Status Cancel Sodium Chloride 100 meq/Potassium Phosphate 19 mmol/ Magnesium Sulfate 12 meq/Calcium Gluconate 15 meq/ Multivitamins 10 ml/Chromium/ Copper/Manganese/ Seleni/Zn 0.5 ml/ Insulin Human Regular 40 unit/ Potassium Chloride 20 meq/ Total Parenteral Nutrition/Amino Acids/Dextrose/ Fat Emulsion Intravenous 1,400 ml @ 58.333 mls/ hr TPN CONT IV Last administered on 08/01/19at 22:02; Start 08/01/19 at 22:00; Stop 08/02/19 at 21:59; Status DC Furosemide (Lasix) 40 mg 1X ONCE IVP Last administered on 08/01/19at 14:39; Start 08/01/19 at 14:30; Stop 08/01/19 at 14:31; Status DC Metronidazole 100 ml @ 100 mls/hr Q8HRS IV Last administered on 08/09/19at 06:04; Start 08/02/19 at 10:00; Stop 08/09/19 at 08:10; Status DC Sodium Chloride 1,000 ml @ 1,000 mls/hr Q1H PRN IV hypotension; Start 08/02/19 at 08:00; Stop 08/02/19 at 13:59; Status DC Albumin Human 200 ml @ 200 mls/hr 1X PRN PRN IV Hypotension; Start 08/02/19 at 08:00; Stop 08/02/19 at 13:59; Status DC Sodium Chloride 1,000 ml @ 400 mls/hr Q2H30M PRN IV PATENCY; Start 08/02/19 at 08:00; Stop 08/02/19 at 19:59; Status DC Info (PHARMACY MONITORING -- do not chart) 1 each PRN DAILY PRN MC SEE COMMENTS; Start 08/02/19 at 11:30; Status UNV Info (PHARMACY MONITORING -- do not chart) 1 each PRN DAILY PRN MC SEE COM MENTS; Start 08/02/19 at 11:30; Stop 08/04/19 at 12:13; Status DC Sodium Chloride 100 meq/Potassium Phosphate 19 mmol/ Magnesium Sulfate 12 meq/Calcium Gluconate 15 meq/ Multivitamins 10 ml/Chromium/ Copper/Manganese/ Seleni/Zn 0.5 ml/ Insulin Human Regular 40 unit/ Potassium Chloride 20 meq/ Total Parenteral Nutrition/Amino Acids/Dextrose/ Fat Emulsion Intravenous 1,400 ml @ 58.333 mls/ hr TPN CONT IV Last administered on 08/02/19at 21:52; Start 08/02/19 at 22:00; Stop 08/03/19 at 21:59; Status DC Sodium Chloride (Normal Saline Flush) 10 ml QSHIFT PRN IV AFTER MEDS AND BLOOD DRAWS; Start 08/02/19 at 15:00; Stop 08/30/19 at 11:27; Status DC Sodium Chloride (Normal Saline Flush) 10 ml PRN Q5MIN PRN IV AFTER MEDS AND BLOOD DRAWS; Start 08/02/19 at 15:00 Sodium Chloride (Normal Saline Flush) 20 ml PRN Q5MIN PRN IV AFTER MEDS AND BLOOD DRAWS; Start 08/02/19 at 15:00 Sodium Chloride 100 meq/Potassium Phosphate 19 mmol/ Magnesium Sulfate 12 meq/Calcium Gluconate 15 meq/ Multivitamins 10 ml/Chromium/ Copper/Manganese/ Seleni/Zn 0.5 ml/ Insulin Human Regular 40 unit/ Potassium Chloride 20 meq/ Total Parenteral Nutrition/Amino Acids/Dextrose/ Fat Emulsion Intravenous 1,400 ml @ 58.333 mls/ hr TPN CONT IV Last administered on 08/03/19at 21:20; Start 08/03/19 at 22:00; Stop 08/04/19 at 21:59; Status DC Lidocaine HCl (Buffered Lidocaine 1%) 3 ml STK-MED ONCE .ROUTE ; Start 08/03/19 at 13:16; Stop 08/03/19 at 13:16; Status DC Lidocaine HCl (Buffered Lidocaine 1%) 6 ml 1X ONCE INJ Last administered on 08/03/19at 13:45; Start 08/03/19 at 13:30; Stop 08/03/19 at 13:31; Status DC Albumin Human 100 ml @ 100 mls/hr 1X ONCE IV Last administered on 08/03/19at 15:41; Start 08/03/19 at 15:00; Stop 08/03/19 at 15:59; Status DC Albumin Human 50 ml @ 50 mls/hr 1X ONCE IV Last administered on 08/03/19at 15:00; Start 08/03/19 at 15:00; Stop 08/03/19 at 15:59; Status DC Info (PHARMACY MONITORING -- do not chart) 1 each PRN DAILY PRN MC SEE COMMENTS; Start 08/04/19 at 11:30; Status Cancel Info (PHARMACY MONITORING -- do not chart) 1 each PRN DAILY PRN MC SEE COMMENTS; Start 08/04/19 at 11:30; Status UNV Sodium Chloride 100 meq/Potassium Phosphate 10 mmol/ Magnesium Sulfate 12 meq/Calcium Gluconate 15 meq/ Multivitamins 10 ml/Chromium/ Copper/Manganese/ Seleni/Zn 0.5 ml/ Insulin Human Regular 35 unit/ Potassium Chloride 20 meq/ Total Parenteral Nutrition/Amino Acids/Dextrose/ Fat Emulsion Intravenous 1,400 ml @ 58.333 mls/ hr TPN CONT IV Last administered on 08/04/19at 22:10; Start 08/04/19 at 22:00; Stop 08/05/19 at 21:59; Status DC Sodium Chloride 100 meq/Potassium Phosphate 5 mmol/ Magnesium Sulfate 12 meq/Calcium Gluconate 15 meq/ Multivitamins 10 ml/Chromium/ Copper/Manganese/ Seleni/Zn 0.5 ml/ Insulin Human Regular 35 unit/ Potassium Chloride 20 meq/ Total Parenteral Nutrition/Amino Acids/Dextrose/ Fat Emulsion Intravenous 1,400 ml @ 58.333 mls/ hr TPN CONT IV Last administered on 08/05/19at 22:59; Start 08/05/19 at 22:00; Stop 08/06/19 at 21:59; Status DC Sodium Chloride 1,000 ml @ 1,000 mls/hr Q1H PRN IV hypotension; Start 08/06/19 at 08:27; Stop 08/06/19 at 14:26; Status DC Albumin Human 200 ml @ 200 mls/hr 1X PRN PRN IV Hypotension Last administered on 08/06/19at 09:18; Start 08/06/19 at 08:30; Stop 08/06/19 at 14:29; Status DC Sodium Chloride 1,000 ml @ 400 mls/hr Q2H30M PRN IV PATENCY; Start 08/06/19 at 08:27; Stop 08/06/19 at 20:26; Status DC Info (PHARMACY MONITORING -- do not chart) 1 each PRN DAILY PRN MC SEE COMMENTS; Start 08/06/19 at 08:30; Status Cancel Info (PHARMACY MONITORING -- do not chart) 1 each PRN DAILY PRN MC SEE COMMENTS; Start 08/06/19 at 08:30; Stop 08/14/19 at 13:10; Status DC Sodium Chloride 100 meq/Potassium Chloride 40 meq/ Magnesium Sulfate 15 meq/Calcium Gluconate 15 meq/ Multivitamins 10 ml/Chromium/ Copper/Manganese/ Seleni/Zn 0.5 ml/ Insulin Human Regular 35 unit/ Total Parenteral Nutrition/Amino Acids/Dextrose/ Fat Emulsion Intravenous 1,400 ml @ 58.333 mls/ hr TPN CONT IV Last administered on 08/06/19at 22:00; Start 08/06/19 at 22:00; Stop 08/07/19 at 21:59; Status DC Potassium Chloride/Water 100 ml @ 100 mls/hr 1X ONCE IV Last administered on 08/06/19at 17:28; Start 08/06/19 at 14:45; Stop 08/06/19 at 15:44; Status DC Sodium Chloride 100 meq/Potassium Chloride 40 meq/ Magnesium Sulfate 15 meq/Calcium Gluconate 15 meq/ Multivitamins 10 ml/Chromium/ Copper/Manganese/ Seleni/Zn 0.5 ml/ Insulin Human Regular 35 unit/ Total Parenteral Nutrition /Amino Acids/Dextrose/ Fat Emulsion Intravenous 1,400 ml @ 58.333 mls/ hr TPN CONT IV Last administered on 08/07/19at 22:46; Start 08/07/19 at 22:00; Stop 08/08/19 at 21:59; Status DC Sodium Chloride 100 meq/Potassium Chloride 40 meq/ Magnesium Sulfate 20 meq/Calcium Gluconate 15 meq/ Multivitamins 10 ml/Chromium/ Copper/Manganese/ Seleni/Zn 0.5 ml/ Insulin Human Regular 35 unit/ Total Parenteral Nutrition/Amino Acids/Dextrose/ Fat Emulsion Intravenous 1,400 ml @ 58.333 mls/ hr TPN CONT IV Last administered on 08/08/19at 22:31; Start 08/08/19 at 22:00; Stop 08/09/19 at 21:59; Status DC Fentanyl Citrate (Fentanyl 2ml Vial) 50 mcg PRN Q2HR PRN IVP PAIN Last administered on 08/15/19at 13:32; Start 08/08/19 at 21:00; Stop 08/16/19 at 12:53; Status DC Fentanyl Citrate (Fentanyl 2ml Vial) 25 mcg PRN Q2HR PRN IVP PAIN; Start 08/08/19 at 21:00; Stop 08/16/19 at 12:54; Status DC Enoxaparin Sodium (Lovenox 100mg Syringe) 100 mg Q12HR SQ ; Start 08/09/19 at 21:00; Status UNV Amino Acids/ Glycerin/ Electrolytes 1,000 ml @ 75 mls/hr [id number] IV ; Start 08/08/19 at 21:15; Status UNV Sodium Chloride 1,000 ml @ 1,000 mls/hr Q1H PRN IV hypotension; Start 08/09/19 at 07:56; Stop 08/09/19 at 13:55; Status DC Albumin Human 200 ml @ 200 mls/hr 1X PRN PRN IV Hypotension Last administered on 08/09/19at 08:40; Start 08/09/19 at 08:00; Stop 08/09/19 at 13:59; Status DC Sodium Chloride 1,000 ml @ 400 mls/hr Q2H30M PRN IV PATENCY; Start 08/09/19 at 07:56; Stop 08/09/19 at 19:55; Status DC Info (PHARMACY MONITORING -- do not chart) 1 each PRN DAILY PRN MC SEE COMMENTS; Start 08/09/19 at 08:00; Status UNV Info (PHARMACY MONITORING -- do not chart) 1 each PRN DAILY PRN MC SEE COMMENTS; Start 08/09/19 at 08:00; Status UNV Daptomycin 430 mg/ Sodium Chloride 50 ml @ 100 mls/hr Q24H IV Last administered on 08/09/19at 12:35; Start 08/09/19 at 09:00; Stop 08/09/19 at 12:49; Status DC Sodium Chloride 100 meq/Potassium Chloride 40 meq/ Magnesium Sulfate 20 meq/Calcium Gluconate 15 meq/ Multivitamins 10 ml/Chromium/ Copper/Manganese/ Seleni/Zn 0.5 ml/ Insulin Human Regular 35 unit/ Total Parenteral Nutrition/Amino Acids/Dextrose/ Fat Emulsion Intravenous 1,400 ml @ 58.333 mls/ hr TPN CONT IV Last administered on 08/09/19at 21:26; Start 08/09/19 at 22:00; Stop 08/10/19 at 21:59; Status DC Daptomycin 430 mg/ Sodium Chloride 50 ml @ 100 mls/hr Q48H IV ; Start 08/11/19 at 09:00; Stop 08/10/19 at 11:55; Status DC Sodium Chloride 100 meq/Potassium Chloride 40 meq/ Magnesium Sulfate 20 meq/Calcium Gluconate 15 meq/ Multivitamins 10 ml/Chromium/ Copper/Manganese/ Seleni/Zn 0.5 ml/ Insulin Human Regular 35 unit/ Total Parenteral Nutrition/Amino Acids/Dextrose/ Fat Emulsion Intravenous 1,400 ml @ 58.333 mls/ hr TPN CONT IV Last administered on 08/10/19at 22:27; Start 08/10/19 at 22:00; Stop 08/11/19 at 21:59; Status DC Daptomycin 430 mg/ Sodium Chloride 50 ml @ 100 mls/hr Q24H IV Last administered on 08/12/19at 15:07; Start 08/10/19 at 13:00; Stop 08/13/19 at 13:15; Status DC Sodium Chloride 100 meq/Potassium Chloride 40 meq/ Magnesium Sulfate 20 meq/Calcium Gluconate 10 meq/ Multivitamins 10 ml/Chromium/ Copper/Manganese/ Seleni/Zn 0.5 ml/ Insulin Human Regular 35 unit/ Total Parenteral Nutrition/Amino Acids/Dextrose/ Fat Emulsion Intravenous 1,400 ml @ 58.333 mls/ hr TPN CONT IV Last administered on 08/12/19at 00:06; Start 08/11/19 at 22:00; Stop 08/12/19 at 21:59; Status DC Alteplase, Recombinant (Cathflo For Central Catheter Clearance) 1 mg 1X ONCE INT CAT Last administered on 08/12/19at 11:44; Start 08/12/19 at 10:45; Stop at 10:46; Status DC Ondansetron HCl (Zofran) 4 mg PRN Q6HRS PRN IV NAUSEA/VOMITING; Start 08/15/19 at 07:00; Stop 08/16/19 at 06:59; Status DC Fentanyl Citrate (Fentanyl 2ml Vial) 25 mcg PRN Q5MIN PRN IV MILD PAIN 1-3; Start 08/15/19 at 07:00; Stop 08/16/19 at 06:59; Status DC Fentanyl Citrate (Fentanyl 2ml Vial) 50 mcg PRN Q5MIN PRN IV MODERATE TO SEVERE PAIN Last administered on 08/15/19at 10:17; Start 08/15/19 at 07:00; Stop 08/16/19 at 06:59; Status DC Ringer's Solution 1,000 ml @ 30 mls/hr Q24H IV ; Start 08/15/19 at 07:00; Stop 08/15/19 at 18:59; Status DC Lidocaine HCl (Xylocaine-Mpf 1% 2ml Vial) 2 ml PRN 1X PRN ID PRIOR TO IV START; Start 08/15/19 at 07:00; Stop 08/16/19 at 06:59; Status DC Prochlorperazine Edisylate (Compazine) 5 mg PACU PRN PRN IV NAUSEA, MRX1; Start 08/15/19 at 07:00; Stop 08/16/19 at 06:59; Status DC Sodium Acetate 50 meq/Potassium Acetate 55 meq/ Magnesium Sulfate 20 meq/Calcium Gluconate 10 meq/ Multivitamins 10 ml/Chromium/ Copper/Manganese/ Seleni/Zn 0.5 ml/ Insulin Human Regular 35 unit/ Total Parenteral Nutrition/Amino Acids/Dextrose/ Fat Emulsion Intravenous 1,400 ml @ 58.333 mls/ hr TPN CONT IV ; Start 08/12/19 at 22:00; Stop 08/12/19 at 14:15; Status DC Sodium Acetate 50 meq/Potassium Acetate 55 meq/ Magnesium Sulfate 20 meq/Calcium Gluconate 10 meq/ Multivitamins 10 ml/Chromium/ Copper/Manganese/ Seleni/Zn 0.5 ml/ Insulin Human Regular 35 unit/ Total Parenteral Nutrition/Amino Acids/Dextrose/ Fat Emulsion Intravenous 1,800 ml @ 75 mls/hr TPN CONT IV Last administered on 08/12/19at 22:38; Start 08/12/19 at 22:00; Stop 08/13/19 at 21:59; Status DC Sodium Chloride 1,000 ml @ 1,000 mls/hr Q1H PRN IV hypotension; Start 08/12/19 at 15:31; Stop 08/12/19 at 21:30; Status DC Diphenhydramine HCl (Benadryl) 25 mg 1X PRN PRN IV ITCHING; Start 08/12/19 at 15:45; Stop 08/13/19 at 15:44; Status DC Diphenhydramine HCl (Benadryl) 25 mg 1X PRN PRN IV ITCHING; Start 08/12/19 at 15:45; Stop 08/13/19 at 15:44; Status DC Sodium Chloride 1,000 ml @ 400 mls/hr Q2H30M PRN IV PATENCY; Start 08/12/19 at 15:31; Stop 08/13/19 at 03:30; Status DC Info (PHARMACY MONITORING -- do not chart) 1 each PRN DAILY PRN MC SEE COMMENTS; Start 08/12/19 at 15:45; Stop 09/13/19 at 14:14; Status DC Sodium Acetate 50 meq/Potassium Acetate 55 meq/ Magnesium Sulfate 20 meq/Calcium Gluconate 10 meq/ Multivitamins 10 ml/Chromium/ Copper/Manganese/ Seleni/Zn 0.5 ml/ Insulin Human Regular 35 unit/ Total Parenteral Nutrition/Amino Acids/Dextrose/ Fat Emulsion Intravenous 1,800 ml @ 75 mls/hr TPN CONT IV Last administered on 08/13/19at 22:03; Start 08/13/19 at 22:00; Stop 08/14/19 at 21:59; Status DC Daptomycin 430 mg/ Sodium Chloride 50 ml @ 100 mls/hr Q24H IV Last administered on 08/18/19at 13:00; Start 08/13/19 at 13:00; Stop 08/18/19 at 2 0:58; Status DC Heparin Sodium (Porcine) 1000 unit/Sodium Chloride 1,001 ml @ 1,001 mls/hr 1X ONCE IRR ; Start 08/15/19 at 06:00; Stop 08/15/19 at 06:59; Status DC Potassium Acetate 55 meq/Magnesium Sulfate 20 meq/ Calcium Gluconate 10 meq/ Multivitamins 10 ml/Chromium/ Copper/Manganese/ Seleni/Zn 0.5 ml/ Insulin Human Regular 35 unit/ Total Parenteral Nutrition/Amino Acids/Dextrose/ Fat Emulsion Intravenous 1,920 ml @ 80 mls/hr TPN CONT IV Last administered on 08/14/19at 22:10; Start 08/14/19 at 22:00; Stop 08/15/19 at 21:59; Status DC Dexamethasone Sodium Phosphate (Decadron) 4 mg STK-MED ONCE .ROUTE ; Start 08/15/19 at 10:56; Stop 08/15/19 at 10:57; Status DC Ondansetron HCl (Zofran) 4 mg STK-MED ONCE .ROUTE ; Start 08/15/19 at 10:56; Stop 08/15/19 at 10:57; Status DC Rocuronium [place] (Zemuron) 50 mg STK-MED ONCE .ROUTE ; Start 08/15/19 at 10:56; Stop 08/15/19 at 10:57; Status DC Fentanyl Citrate (Fentanyl 2ml Vial) 100 mcg STK-MED ONCE .ROUTE ; Start 08/15/19 at 10:56; Stop 08/15/19 at 10:57; Status DC Bupivacaine HCl/ Epinephrine Bitart (Sensorcain-Epi 0.5%-1:522023 Mpf) 30 ml STK-MED ONCE .ROUTE Last administered on 08/15/19at 12:01; Start 08/15/19 at 10:58; Stop 08/15/19 at 10:58; Status DC Cellulose (Surgicel Hemostat 2x14) 1 each STK-MED ONCE .ROUTE ; Start 08/15/19 at 10:58; Stop 08/15/19 at 10:59; Status DC Iohexol (Omnipaque 300 Mg/ml) 50 ml STK-MED ONCE .ROUTE ; Start 08/15/19 at 10:58; Stop 08/15/19 at 10:59; Status DC Cellulose (Surgicel Hemostat 4x8) 1 each STK-MED ONCE .ROUTE ; Start 08/15/19 at 10:58; Stop 08/15/19 at 10:59; Status DC Bisacodyl (Dulcolax Supp) 10 mg STK-MED ONCE .ROUTE ; Start 08/15/19 at 10:59; Stop 08/15/19 at 10:59; Status DC Heparin Sodium (Porcine) 1000 unit/Sodium Chloride 1,001 ml @ 1,001 mls/hr 1X ONCE IRR ; Start 08/15/19 at 12:00; Stop 08/15/19 at 12:59; Status DC Propofol 20 ml @ As Directed STK-MED ONCE IV ; Start 08/15/19 at 11:05; Stop 08/15/19 at 11:05; Status DC Sevoflurane (Ultane) 90 ml STK-MED ONCE IH ; Start 08/15/19 at 11:05; Stop 08/14 at 11:05; Status DC Sevoflurane (Ultane) 60 ml STK-MED ONCE IH ; Start 08/15/19 at 12:26; Stop 08/15/19 at 12:27; Status DC Propofol 20 ml @ As Directed STK-MED ONCE IV ; Start 08/15/19 at 12:26; Stop 08/15/19 at 12:27; Status DC Phenylephrine HCl (PHENYLEPHRINE in 0.9% NACL PF) 1 mg STK-MED ONCE IV ; Start 08/15/19 at 12:34; Stop 08/15/19 at 12:34; Status DC Heparin Sodium (Porcine) (Heparin Sodium) 5,000 unit Q12HR SQ Last administered on 08/24/19at 20:57; Start 08/15/19 at 21:00; Stop 08/25/19 at 09:59; Status DC Sodium Chloride (Normal Saline Flush) 3 ml QSHIFT PRN IV AFTER MEDS AND BLOOD DRAWS; Start 08/15/19 at 13:45; Status Cancel Naloxone HCl (Narcan) 0.4 mg PRN Q2MIN PRN IV SEE INSTRUCTIONS Last administered on 09/24/19at 15:15; Start 08/15/19 at 13:45; Stop 10/19/19 at 16:00; Status DC Sodium Chloride 1,000 ml @ 25 mls/hr Q24H IV Last administered on 09/13/19at 13:37; Start 08/15/19 at 13:37; Stop 09/16/19 at 13:09; Status DC Naloxone HCl (Narcan) 0.4 mg PRN Q2MIN PRN IV SEE INSTRUCTIONS; Start 08/15/19 at 14:30; Status UNV Sodium Chloride 1,000 ml @ 25 mls/hr Q24H IV ; Start 08/15/19 at 14:30; Status UNV Hydromorphone HCl 30 ml @ 0 mls/hr CONT PRN PRN IV PER PROTOCOL Last administered on 08/20/19at 16:08; Start 08/15/19 at 14:30; Stop 08/22/19 at 08:55; Status DC Potassium Acetate 55 meq/Magnesium Sulfate 20 meq/ Calcium Gluconate 10 meq/ Multivitamins 10 ml/Chromium/ Copper/Manganese/ Seleni/Zn 0.5 ml/ Insulin Human Regular 35 unit/ Total Parenteral Nutrition/Amino Acids/Dextrose/ Fat Emulsion Intravenous 1,920 ml @ 80 mls/hr TPN CONT IV Last administered on 08/15/19at 22:01; Start 08/15/19 at 22:00; Stop 08/16/19 at 21:59; Status DC Bumetanide (Bumex) 2 mg [id number] IV Last administered on 08/19/19at 13:50; Start 08/16/19 at 14:00; Stop 08/20/19 at 14:10; Status DC Meropenem 1 gm/ Sodium Chloride 100 ml @ 200 mls/hr Q8HRS IV Last administered on 09/09/19at 05:53; Start 08/16/19 at 14:00; Stop 09/09/19 at 09:31; Status DC Potassium Acetate 55 meq/Magnesium Sulfate 20 meq/ Calcium Gluconate 10 meq/ Multivitamins 10 ml/Chromium/ Copper/Manganese/ Seleni/Zn 0.5 ml/ Insulin Human Regular 35 unit/ Total Parenteral Nutrition/Amino Acids/Dextrose/ Fat Emulsion Intravenous 1,920 ml @ 80 mls/hr TPN CONT IV Last administered on 08/16/19at 22:02; Start 08/16/19 at 22:00; Stop 08/17/19 at 21:59; Status DC Hydromorphone HCl (Dilaudid Standard CARD FOLDER) 12 mg STK-MED ONCE IV ; Start 08/15/19 at 14:35; Stop 08/16/19 at 13:53; Status DC Artificial Tears (Artificial Tears) 1 drop PRN Q15MIN PRN OU DRY EYE Last administered on 10/11/19at 21:17; Start 08/17/19 at 05:30 Hydromorphone HCl (Dilaudid Standard CARD FOLDER) 12 mg STK-MED ONCE IV ; Start 08/16/19 at 12:05; Stop 08/17/19 at 09:15; Status DC Potassium Acetate 65 meq/Magnesium Sulfate 20 meq/ Calcium Gluconate 10 meq/ Multivitamins 10 ml/Chromium/ Copper/Manganese/ Seleni/Zn 0.5 ml/ Insulin Human Regular 30 unit/ Total Parenteral Nutrition/Amino Acids/Dextrose/ Fat Emulsion Intravenous 1,920 ml @ 80 mls/hr TPN CONT IV Last administered on 08/17/19at 22:22; Start 08/17/19 at 22:00; Stop 08/18/19 at 21:59; Status DC Cyclobenzaprine HCl (Flexeril) 10 mg PRN Q6HRS PRN PO MUSCLE SPASMS Last administered on 10/28/19at 19:12; Start 08/18/19 at 10:45 Potassium Acetate 55 meq/Magnesium Sulfate 20 meq/ Calcium Gluconate 10 meq/ Multivitamins 10 ml/Chromium/ Copper/Manganese/ Seleni/Zn 0.5 ml/ Insulin Human Regular 30 unit/ Total Parenteral Nutrition/Amino Acids/Dextrose/ Fat Emulsion Intravenous 1,920 ml @ 80 mls/hr TPN CONT IV Last administered on 08/19/19at 01:00; Start 08/18/19 at 22:00; Stop 08/19/19 at 21:59; Status DC Magnesium Sulfate 50 ml @ 25 mls/hr 1X ONCE IV Last administered on 08/18/19at 17:18; Start 08/18/19 at 12:45; Stop 08/18/19 at 14:44; Status DC Potassium Chloride/Water 100 ml @ 100 mls/hr 1X ONCE IV Last administered on 08/19/19at 11:27; Start 08/19/19 at 12:00; Stop 08/19/19 at 12:59; Status DC Hydromorphone HCl (Dilaudid Standard CARD FOLDER) 12 mg STK-MED ONCE IV ; Start 08/17/19 at 10:50; Stop 08/19/19 at 11:02; Status DC Hydromorphone HCl (Dilaudid Standard CARD FOLDER) 12 mg STK-MED ONCE IV ; Start 08/18/19 at 13:47; Stop 08/19/19 at 11:03; Status DC Potassium Acetate 30 meq/Magnesium Sulfate 20 meq/ Calcium Gluconate 10 meq/ Multivitamins 10 ml/Chromium/ Copper/Manganese/ Seleni/Zn 0.5 ml/ Insulin Human Regular 30 unit/ Potassium Chloride 30 meq/ Total Parenteral Nutrition/Amino Acids/Dextrose/ Fat Emulsion Intravenous 1,920 ml @ 80 mls/hr TPN CONT IV Last administered on 08/19/19at 22:34; Start 08/19/19 at 22:00; Stop 08/20/19 at 21:59; Status DC Potassium Chloride/Water 100 ml @ 100 mls/hr Q1H IV Last administered on 08/20/19at 13:05; Start 08/20/19 at 07:00; Stop 08/20/19 at 10:59; Status DC Magnesium Sulfate 50 ml @ 25 mls/hr 1X ONCE IV Last administered on 08/20/19at 10:34; Start 08/20/19 at 10:30; Stop 08/20/19 at 12:29; Status DC Potassium Chloride 75 meq/ Magnesium Sulfate 20 meq/Calcium Gluconate 10 meq/ Multivitamins 10 ml/Chromium/ Copper/Manganese/ Seleni/Zn 0.5 ml/ Insulin Human Regular 30 unit/ Total Parenteral Nutrition/Amino Acids/Dextrose/ Fat Emulsion Intravenous 1,920 ml @ 80 mls/hr TPN CONT IV Last administered on 08/20/19at 21:51; Start 08/20/19 at 22:00; Stop 08/21/19 at 22:00; Status DC Potassium Chloride 75 meq/ Magnesium Sulfate 20 meq/Calcium Gluconate 10 meq/ Multivitamins 10 ml/Chromium/ Copper/Manganese/ Seleni/Zn 0.5 ml/ Insulin Human Regular 25 unit/ Total Parenteral Nutrition/Amino Acids/Dextrose/ Fat Emulsion Intravenous 1,920 ml @ 80 mls/hr TPN CONT IV Last administered on 08/21/19at 22:04; Start 08/21/19 at 22:00; Stop 08/22/19 at 21:59; Status DC Hydromorphone HCl (Dilaudid) 0.4 mg PRN Q4HRS PRN IVP PAIN Last administered on 08/22/19at 10:57; Start 08/22/19 at 09:00; Stop 08/22/19 at 18:59; Status DC Micafungin Sodium 100 mg/Dextrose 100 ml @ 100 mls/hr Q24H IV Last administered on 09/13/19at 12:17; Start 08/22/19 at 11:00; Stop 09/14/19 at 09:59; Status DC Daptomycin 485 mg/ Sodium Chloride 50 ml @ 100 mls/hr Q24H IV Last administered on 08/29/19at 13:10; Start 08/22/19 at 11:00; Stop 08/30/19 at 07:44; Status DC Potassium Chloride 75 meq/ Magnesium Sulfate 15 meq/Calcium Gluconate 8 meq/ Multivitamins 10 ml/Chromium/ Copper/Manganese/ Seleni/Zn 0.5 ml/ Insulin Human Regular 25 unit/ Total Parenteral Nutrition/Amino Acids/Dextrose/ Fat Emulsion Intravenous 1,920 ml @ 80 mls/hr TPN CONT IV Last administered on 08/22/19at 23:08; Start 08/22/19 at 22:00; Stop 08/23/19 at 21:59; Status DC Haloperidol Lactate (Haldol Inj) 3 mg 1X ONCE IVP Last administered on 08/22/19at 14:37; Start 08/22/19 at 14:30; Stop 08/22/19 at 14:31; Status DC Hydromorphone HCl (Dilaudid) 1 mg PRN Q4HRS PRN IVP PAIN Last administered on 09/05/19at 06:25; Start 08/22/19 at 19:00; Stop 09/05/19 at 17:10; Status DC Potassium Chloride 75 meq/ Magnesium Sulfate 15 meq/Calcium Gluconate 8 meq/ Multivitamins 10 ml/Chromium/ Copper/Manganese/ Seleni/Zn 0.5 ml/ Insulin Human Regular 20 unit/ Total Parenteral Nutrition/Amino Acids/Dextrose/ Fat Emulsion Intravenous 1,920 ml @ 80 mls/hr TPN CONT IV Last administered on 08/23/19at 22:10; Start 08/23/19 at 22:00; Stop 08/24/19 at 21:59; Status DC Lidocaine HCl (Buffered Lidocaine 1%) 3 ml STK-MED ONCE .ROUTE ; Start 08/24/19 at 11:31; Stop 08/24/19 at 11:31; Status DC Lidocaine HCl (Buffered Lidocaine 1%) 3 ml STK-MED ONCE .ROUTE ; Start 08/24/19 at 12:28; Stop 08/24/19 at 12:29; Status DC Lidocaine HCl (Buffered Lidocaine 1%) 6 ml 1X ONCE INJ Last administered on 08/24/19at 12:53; Start 08/24/19 at 12:45; Stop 08/24/19 at 12:46; Status DC Potassium Chloride 75 meq/ Magnesium Sulfate 15 meq/Calcium Gluconate 8 meq/ Multivitamins 10 ml/Chromium/ Copper/Manganese/ Seleni/Zn 0.5 ml/ Insulin Human Regular 20 unit/ Total Parenteral Nutrition/Amino Acids/Dextrose/ Fat Emulsion Intravenous 1,920 ml @ 80 mls/hr TPN CONT IV Last administered on 08/24/19at 22:00; Start 08/24/19 at 22:00; Stop 08/25/19 at 21:59; Status DC Potassium Chloride 75 meq/ Magnesium Sulfate 15 meq/Calcium Gluconate 8 meq/ Multivitamins 10 ml/Chromium/ Copper/Manganese/ Seleni/Zn 0.5 ml/ Insulin Human Regular 15 unit/ Total Parenteral Nutrition/Amino Acids/Dextrose/ Fat Emulsion Intravenous 1,920 ml @ 80 mls/hr TPN CONT IV Last administered on 08/25/19at 22:28; Start 08/25/19 at 22:00; Stop 08/26/19 at 21:59; Status DC Vecuronium [place] (Norcuron Bolus) 6 mg PRN Q6HRS PRN IV VENT ASYNCHRONY; Start 08/25/19 at 19:15; Stop 08/25/19 at 19:35; Status DC Bumetanide (Bumex) 2 mg 1X ONCE IV Last administered on 08/25/19at 22:09; Start 08/25/19 at 19:45; Stop 08/25/19 at 19:46; Status DC Lidocaine HCl (Buffered Lidocaine 1%) 3 ml STK-MED ONCE .ROUTE ; Start 08/26/19 at 07:59; Stop 08/26/19 at 07:59; Status DC Midazolam HCl (Versed) 5 mg STK-MED ONCE .ROUTE ; Start 08/26/19 at 08:36; Stop 08/26/19 at 08:36; Status DC Fentanyl Citrate (Fentanyl 5ml Vial) 250 mcg STK-MED ONCE .ROUTE ; Start 08/26/19 at 08:36; Stop 08/26/19 at 08:37; Status DC Lidocaine HCl (Buffered Lidocaine 1%) 3 ml 1X ONCE IJ Last administered on 08/26/19at 09:30; Start 08/26/19 at 09:15; Stop 08/26/19 at 09:16; Status DC Midazolam HCl (Versed) 5 mg 1X ONCE IV Last administered on 08/26/19at 09:30; Start 08/26/19 at 09:15; Stop 08/26/19 at 09:16; Status DC Fentanyl Citrate (Fentanyl 5ml Vial) 250 mcg 1X ONCE IV Last administered on 08/26/19at 09:30; Start 08/26/19 at 09:15; Stop 08/26/19 at 09:16; Status DC Bumetanide (Bumex) 2 mg DAILY IV Last administered on 09/05/19at 08:07; Start 08/26/19 at 10:00; Stop 09/05/19 at 17:15; Status DC Potassium Chloride 75 meq/ Magnesium Sulfate 15 meq/ Multivitamins 10 ml/Chromium/ Copper/Manganese/ Seleni/Zn 0.5 ml/ Insulin Human Regular 15 unit/ Total Parenteral Nutrition/Amino Acids/Dextrose/ Fat Emulsion Intravenous 1,920 ml @ 80 mls/hr TPN CONT IV Last administered on 08/26/19at 21:59; Start 08/26/19 at 22:00; Stop 08/27/19 at 21:59; Status DC Metoclopramide HCl (Reglan Vial) 10 mg PRN Q3HRS PRN IVP NAUSEA/VOMITING-3rd choice Last administered on 09/01/19at 04:25; Start 08/27/19 at 16:45 Potassium Chloride 75 meq/ Magnesium Sulfate 15 meq/ Multivitamins 10 ml/Ch romium/ Copper/Manganese/ Seleni/Zn 0.5 ml/ Insulin Human Regular 15 unit/ Total Parenteral Nutrition/Amino Acids/Dextrose/ Fat Emulsion Intravenous 1,920 ml @ 80 mls/hr TPN CONT IV Last administered on 08/27/19at 22:41; Start 08/27/19 at 22:00; Stop 08/28/19 at 21:59; Status DC Magnesium Sulfate 50 ml @ 25 mls/hr 1X ONCE IV Last administered on 08/28/19at 10:44; Start 08/28/19 at 09:00; Stop 08/28/19 at 10:59; Status DC Potassium Chloride/Water 100 ml @ 100 mls/hr 1X ONCE IV Last administered on 08/28/19at 09:37; Start 08/28/19 at 09:00; Stop 08/28/19 at 09:59; Status DC Duloxetine HCl (Cymbalta) 30 mg DAILY PO Last administered on 08/29/19at 09:48; Start 08/28/19 at 14:00; Stop 08/31/19 at 10:25; Status DC Potassium Chloride 80 meq/ Magnesium Sulfate 20 meq/ Multivitamins 10 ml/Chromium/ Copper/Manganese/ Seleni/Zn 0.5 ml/ Insulin Human Regular 15 unit/ Total Parenteral Nutrition/Amino Acids/Dextrose/ Fat Emulsion Intravenous 1,920 ml @ 80 mls/hr TPN CONT IV Last administered on 08/28/19at 21:42; Start 08/28/19 at 22:00; Stop 08/29/19 at 21:59; Status DC Potassium Chloride 80 meq/ Magnesium Sulfate 20 meq/ Multivitamins 10 ml/Chromium/ Copper/Manganese/ Seleni/Zn 0.5 ml/ Insulin Human Regular 15 unit/ Total Parenteral Nutrition/Amino Acids/Dextrose/ Fat Emulsion Intravenous 1,920 ml @ 80 mls/hr TPN CONT IV Last administered on 08/29/19at 22:20; Start 08/29/19 at 22:00; Stop 08/30/19 at 21:59; Status DC Lidocaine HCl (Buffered Lidocaine 1%) 3 ml STK-MED ONCE .ROUTE ; Start 08/30/19 at 09:54; Stop 08/30/19 at 09:55; Status DC Hydromorphone HCl (Dilaudid Standard CARD FOLDER) 12 mg STK-MED ONCE IV ; Start 08/19/19 at 15:50; Stop 08/30/19 at 11:24; Status DC Potassium Chloride 80 meq/ Magnesium Sulfate 20 meq/ Multivitamins 10 ml/Chromium/ Copper/Manganese/ Seleni/Zn 0.5 ml/ Insulin Human Regular 15 unit/ Total Parenteral Nutrition/Amino Acids/Dextrose/ Fat Emulsion Intravenous 1,920 ml @ 80 mls/hr TPN CONT IV Last administered on 08/30/19at 21:40; Start 08/30/19 at 22:00; Stop 08/31/19 at 21:59; Status DC Lidocaine HCl (Buffered Lidocaine 1%) 6 ml 1X ONCE INJ Last administered on 08/30/19at 14:15; Start 08/30/19 at 14:15; Stop 08/30/19 at 14:16; Status DC Potassium Chloride 80 meq/ Magnesium Sulfate 20 meq/ Multivitamins 10 ml/Chromium/ Copper/Manganese/ Seleni/Zn 1 ml/ Insulin Human Regular 15 unit/ Total Parenteral Nutrition/Amino Acids/Dextrose/ Fat Emulsion Intravenous 1,920 ml @ 80 mls/hr TPN CONT IV Last administered on 08/31/19at 22:04; Start 08/31/19 at 22:00; Stop 09/01/19 at 21:59; Status DC Potassium Chloride/Water 100 ml @ 100 mls/hr 1X ONCE IV Last administered on 09/01/19at 11:34; Start 09/01/19 at 11:00; Stop 09/01/19 at 11:59; Status DC Potassium Chloride 90 meq/ Magnesium Sulfate 20 meq/ Multivitamins 10 ml/Chromium/ Copper/Manganese/ Seleni/Zn 1 ml/ Insulin Human Regular 15 unit/ Total Parenteral Nutrition/Amino Acids/Dextrose/ Fat Emulsion Intravenous 1,920 ml @ 80 mls/hr TPN CONT IV Last administered on 09/01/19at 22:57; Start 09/01/19 at 22:00; Stop 09/02/19 at 21:59; Status DC Potassium Chloride 90 meq/ Magnesium Sulfate 20 meq/ Multivitamins 10 ml/Chromium/ Copper/Manganese/ Seleni/Zn 1 ml/ Insulin Human Regular 15 unit/ Total Parenteral Nutrition/Amino Acids/Dextrose/ Fat Emulsion Intravenous 1,920 ml @ 80 mls/hr TPN CONT IV Last administered on 09/02/19at 22:48; Start 09/02/19 at 22:00; Stop 09/03/19 at 21:59; Status DC Potassium Chloride 90 meq/ Magnesium Sulfate 20 meq/ Multivitamins 10 ml/Chromium/ Copper/Manganese/ Seleni/Zn 1 ml/ Insulin Human Regular 15 unit/ Total Parenteral Nutrition/Amino Acids/Dextrose/ Fat Emulsion Intravenous 1,890 ml @ 78.75 mls/ hr TPN CONT IV Last administered on 09/03/19at 22:15; Start 09/03/19 at 22:00; Stop 09/04/19 at 21:59; Status DC Linezolid/Dextrose 300 ml @ 300 mls/hr Q12HR IV Last administered on 09/06/19at 21:08; Start 09/04/19 at 09:00; Stop 09/07/19 at 08:11; Status DC Daptomycin 450 mg/ Sodium Chloride 50 ml @ 100 mls/hr Q24H IV Last administered on 09/07/19at 09:25; Start 09/04/19 at 09:00; Stop 09/08/19 at 08:30; Status DC Potassium Chloride 90 meq/ Magnesium Sulfate 20 meq/ Multivitamins 10 ml/Chromium/ Copper/Manganese/ Seleni/Zn 1 ml/ Insulin Human Regular 15 unit/ Total Parenteral Nutrition/Amino Acids/Dextrose/ Fat Emulsion Intravenous 1,890 ml @ 78.75 mls/ hr TPN CONT IV Last administered on 09/04/19at 21:34; Start 09/04/19 at 22:00; Stop 09/05/19 at 21:59; Status DC Lorazepam (Ativan Inj) 2 mg STK-MED ONCE .ROUTE ; Start 09/04/19 at 14:58; Stop 09/04/19 at 14:58; Status DC Metoprolol Tartrate (Lopressor Vial) 5 mg 1X ONCE IVP Last administered on 09/04/19at 15:31; Start 09/04/19 at 15:15; Stop 09/04/19 at 15:16; Status DC Lorazepam (Ativan Inj) 2 mg 1X ONCE IVP Last administered on 09/04/19at 15:30; Start 09/04/19 at 15:15; Stop 09/04/19 at 15:16; Status DC Enoxaparin Sodium (Lovenox 40mg Syringe) 40 mg Q24H SQ Last administered on 09/23/19at 17:44; Start 09/04/19 at 17:00; Stop 09/25/19 at 06:50; Status DC Lorazepam (Ativan Inj) 1 mg PRN Q4HRS PRN IVP ANXIETY / AGITATION MILD-MOD Last administered on 09/18/19at 15:55; Start 09/04/19 at 19:15; Stop 09/20/19 at 11:45; Status DC Lorazepam (Ativan Inj) 2 mg PRN Q4HRS PRN IVP ANXIETY / AGITATION SEVERE Last administered on 09/19/19at 07:55; Start 09/04/19 at 19:15; Stop 09/20/19 at 11:45; Status DC Fentanyl Citrate (Fentanyl 2ml Vial) 50 mcg PRN Q4HRS PRN IVP SEVERE PAIN Last administered on 10/01/19at 05:15; Start 09/05/19 at 13:15; Stop 10/02/19 at 09:29; Status DC Fentanyl Citrate (Fentanyl 2ml Vial) 25 mcg PRN Q4HRS PRN IVP MODERATE PAIN Last administered on 10/01/19at 00:27; Start 09/05/19 at 13:15; Stop 10/02/19 at 09:30; Status DC Potassium Chloride 90 meq/ Magnesium Sulfate 20 meq/ Multivitamins 10 ml/Chromium/ Copper/Manganese/ Seleni/Zn 1 ml/ Insulin Human Regular 15 unit/ Total Parenteral Nutrition/Amino Acids/Dextrose/ Fat Emulsion Intravenous 1,890 ml @ 78.75 mls/ hr TPN CONT IV Last administered on 09/05/19at 22:18; Start 09/05/19 at 22:00; Stop 09/06/19 at 21:59; Status DC Furosemide (Lasix) 40 mg 1X ONCE IVP Last administered on 09/05/19at 21:51; Start 09/05/19 at 21:45; Stop 09/05/19 at 21:48; Status DC Albumin Human 100 ml @ 100 mls/hr 1X PRN PRN IV SEE COMMENTS; Start 09/06/19 at 01:30 Furosemide (Lasix) 40 mg [id number] IVP Last administered on 09/21/19at 08:04; Start 09/06/19 at 14:00; Stop 09/21/19 at 13:07; Status DC Potassium Chloride 90 meq/ Magnesium Sulfate 20 meq/ Multivitamins 10 ml/Chromium/ Copper/Manganese/ Seleni/Zn 1 ml/ Insulin Human Regular 15 unit/ Total Parenteral Nutrition/Amino Acids/Dextrose/ Fat Emulsion Intravenous 1,800 ml @ 75 mls/hr TPN CONT IV Last administered on 09/06/19at 22:31; Start 09/06/19 at 22:00; Stop 09/07/19 at 21:59; Status DC Potassium Chloride 90 meq/ Magnesium Sulfate 20 meq/ Multivitamins 10 ml/Chromium/ Copper/Manganese/ Seleni/Zn 1 ml/ Insulin Human Regular 15 unit/ Total Parenteral Nutrition/Amino Acids/Dextrose/ Fat Emulsion Intravenous 1,800 ml @ 75 mls/hr TPN CONT IV Last administered on 09/07/19at 22:28; Start 09/07/19 at 22:00; Stop 09/08/19 at 21:59; Status DC Potassium Chloride 110 meq/ Magnesium Sulfate 20 meq/ Multivitamins 10 ml/Chromium/ Copper/Manganese/ Seleni/Zn 1 ml/ Insulin Human Regular 15 unit/ Total Parenteral Nutrition/Amino Acids/Dextrose/ Fat Emulsion Intravenous 1,800 ml @ 75 mls/hr TPN CONT IV Last administered on 09/08/19at 22:01; Start 09/08/19 at 22:00; Stop 09/09/19 at 21:59; Status DC Saliva Substitute (Biotene Moisturizing Mouth) 2 spray PRN Q15MIN PRN PO DRY MOUTH; Start 09/08/19 at 11:00 Potassium Chloride 110 meq/ Magnesium Sulfate 20 meq/ Multivitamins 10 ml/Chrom ium/ Copper/Manganese/ Seleni/Zn 1 ml/ Insulin Human Regular 15 unit/ Total Parenteral Nutrition/Amino Acids/Dextrose/ Fat Emulsion Intravenous 1,800 ml @ 75 mls/hr TPN CONT IV Last administered on 09/09/19at 22:21; Start 09/09/19 at 22:00; Stop 09/10/19 at 21:59; Status DC Potassium Chloride 110 meq/ Magnesium Sulfate 20 meq/ Multivitamins 10 ml/Chromium/ Copper/Manganese/ Seleni/Zn 1 ml/ Insulin Human Regular 15 unit/ Total Parenteral Nutrition/Amino Acids/Dextrose/ Fat Emulsion Intravenous 1,800 ml @ 75 mls/hr TPN CONT IV Last administered on 09/10/19at 22:04; Start 09/10/19 at 22:00; Stop 09/11/19 at 21:59; Status DC Potassium Chloride 110 meq/ Magnesium Sulfate 20 meq/ Multivitamins 10 ml/Chromium/ Copper/Manganese/ Seleni/Zn 1 ml/ Insulin Human Regular 15 unit/ Total Parenteral Nutrition/Amino Acids/Dextrose/ Fat Emulsion Intravenous 1,800 ml @ 75 mls/hr TPN CONT IV Last administered on 09/11/19at 22:48; Start 09/11/19 at 22:00; Stop 09/12/19 at 21:59; Status DC Potassium Chloride 70 meq/ Magnesium Sulfate 20 meq/ Multivitamins 10 ml/Chromium/ Copper/Manganese/ Seleni/Zn 1 ml/ Insulin Human Regular 15 unit/ Total Parenteral Nutrition/Amino Acids/Dextrose/ Fat Emulsion Intravenous 1,800 ml @ 75 mls/hr TPN CONT IV Last administered on 09/12/19at 21:39; Start 09/12/19 at 22:00; Stop 09/13/19 at 21:59; Status DC Meropenem 500 mg/ Sodium Chloride 50 ml @ 100 mls/hr Q6HRS IV Last administered on 09/14/19at 06:02; Start 09/12/19 at 18:00; Stop 09/14/19 at 09:59; Status DC Barium Sulfate (Varibar Thin Liquid Apple) 148 gm 1X ONCE PO ; Start 09/13/19 at 11:45; Stop 09/13/19 at 11:49; Status DC Potassium Chloride 70 meq/ Magnesium Sulfate 20 meq/ Multivitamins 10 ml/Chromium/ Copper/Manganese/ Seleni/Zn 1 ml/ Insulin Human Regular 15 unit/ Total Parenteral Nutrition/Amino Acids/Dextrose/ Fat Emulsion Intravenous 1,800 ml @ 75 mls/hr TPN CONT IV Last administered on 09/13/19at 22:27; Start 09/13/19 at 22:00; Stop 09/14/19 at 21:59; Status DC Piperacillin Sod/ Tazobactam Sod 3.375 gm/Sodium Chloride 50 ml @ 100 mls/hr Q6HRS IV Last administered on 09/22/19at 06:10; Start 09/14/19 at 12:00; Stop 09/22/19 at 07:26; Status DC Potassium Chloride 70 meq/ Magnesium Sulfate 20 meq/ Multivitamins 10 ml/Chromium/ Copper/Manganese/ Seleni/Zn 1 ml/ Insulin Human Regular 15 unit/ Total Parenteral Nutrition/Amino Acids/Dextrose/ Fat Emulsion Intravenous 1,800 ml @ 75 mls/hr TPN CONT IV Last administered on 09/14/19at 22:03; Start 09/14/19 at 22:00; Stop 09/15/19 at 21:59; Status DC Potassium Chloride 70 meq/ Magnesium Sulfate 20 meq/ Multivitamins 10 ml/Chromium/ Copper/Manganese/ Seleni/Zn 1 ml/ Insulin Human Regular 15 unit/ Total Parenteral Nutrition/Amino Acids/Dextrose/ Fat Emulsion Intravenous 1,800 ml @ 75 mls/hr TPN CONT IV Last administered on 09/15/19at 22:33; Start 09/15/19 at 22:00; Stop 09/16/19 at 21:59; Status DC Potassium Chloride 70 meq/ Magnesium Sulfate 20 meq/ Multivitamins 10 ml/Chromium/ Copper/Manganese/ Seleni/Zn 1 ml/ Insulin Human Regular 15 unit/ Total Parenteral Nutrition/Amino Acids/Dextrose/ Fat Emulsion Intravenous 1,800 ml @ 75 mls/hr TPN CONT IV Last administered on 09/16/19at 23:13; Start 09/16/19 at 22:00; Stop 09/17/19 at 21:59; Status DC Potassium Chloride 80 meq/ Magnesium Sulfate 20 meq/ Multivitamins 10 ml/Chromium/ Copper/Manganese/ Seleni/Zn 1 ml/ Insulin Human Regular 15 unit/ Total Parenteral Nutrition/Amino Acids/Dextrose/ Fat Emulsion Intravenous 1,800 ml @ 75 mls/hr TPN CONT IV Last administered on 09/17/19at 22:30; Start 09/17/19 at 22:00; Stop 09/18/19 at 21:59; Status DC Potassium Chloride 80 meq/ Magnesium Sulfate 20 meq/ Multivitamins 10 ml/Chromium/ Copper/Manganese/ Seleni/Zn 1 ml/ Insulin Human Regular 15 unit/ Total Parenteral Nutrition/Amino Acids/Dextrose/ Fat Emulsion Intravenous 1,800 ml @ 75 mls/hr TPN CONT IV Last administered on 09/18/19at 21:54; Start 09/18/19 at 22:00; Stop 09/19/19 at 21:59; Status DC Potassium Chloride/Water 100 ml @ 100 mls/hr 1X ONCE IV Last administered on 09/19/19at 10:15; Start 09/19/19 at 10:00; Stop 09/19/19 at 10:59; Status DC Potassium Chloride 90 meq/ Magnesium Sulfate 20 meq/ Multivitamins 10 ml/Chromium/ Copper/Manganese/ Seleni/Zn 1 ml/ Insulin Human Regular 20 unit/ Total Parenteral Nutrition/Amino Acids/Dextrose/ Fat Emulsion Intravenous 1,800 ml @ 75 mls/hr TPN CONT IV Last administered on 09/19/19at 22:28; Start 09/19/19 at 22:00; Stop 09/20/19 at 21:59; Status DC Potassium Chloride 90 meq/ Magnesium Sulfate 20 meq/ Multivitamins 10 ml/Chromium/ Copper/Manganese/ Seleni/Zn 1 ml/ Insulin Human Regular 20 unit/ Total Parenteral Nutrition/Amino Acids/Dextrose/ Fat Emulsion Intravenous 1,800 ml @ 75 mls/hr TPN CONT IV Last administered on 09/20/19at 22:08; Start 09/20/19 at 22:00; Stop 09/21/19 at 21:59; Status DC Lorazepam (Ativan Inj) 0.25 mg PRN Q4HRS PRN IVP ANXIETY / AGITATION Last administered on 11/12/19at 13:06; Start 09/21/19 at 07:30 Potassium Chloride 90 meq/ Magnesium Sulfate 20 meq/ Multivitamins 10 ml/Chromium/ Copper/Manganese/ Seleni/Zn 1 ml/ Insulin Human Regular 20 unit/ Total Parenteral Nutrition/Amino Acids/Dextrose/ Fat Emulsion Intravenous 1,800 ml @ 75 mls/hr TPN CONT IV Last administered on 09/21/19at 23:13; Start 09/21/19 at 22:00; Stop 09/22/19 at 21:59; Status DC Furosemide (Lasix) 40 mg DAILY IVP Last administered on 09/23/19at 11:14; Start 09/21/19 at 13:30; Stop 09/25/19 at 09:12; Status DC Fluoxetine HCl (PROzac) 20 mg QHS PEG Last administered on 11/12/19at 21:40; Start 09/22/19 at 21:00 Fentanyl (Duragesic 50mcg/ Hr Patch) 1 patch Q72H TD Last administered on 09/22/19at 21:22; Start 09/22/19 at 21:00; Stop 10/01/19 at 12:00; Status DC Potassium Chloride 40 meq/ Potassium Acetate 60 meq/Magnesium Sulfate 10 meq/ Multivitamins 10 ml/Chromium/ Copper/Manganese/ Seleni/Zn 1 ml/ Insulin Human Regular 20 unit/ Total Parenteral Nutrition/Amino Acids/Dextrose/ Fat Emulsion Intravenous 1,800 ml @ 75 mls/hr TPN CONT IV Last administered on 09/23/19at 00:03; Start 09/22/19 at 22:00; Stop 09/23/19 at 21:59; Status DC Potassium Acetate 80 meq/Magnesium Sulfate 5 meq/ Multivitamins 10 ml/Chromium/ Copper/Manganese/ Seleni/Zn 1 ml/ Insulin Human Regular 20 unit/ Total Parenteral Nutrition/Amino Acids/Dextrose/ Fat Emulsion Intravenous 1,920 ml @ 80 mls/hr TPN CONT IV Last administered on 09/23/19at 21:59; Start 09/23/19 at 22:00; Stop 09/24/19 at 21:59; Status DC Potassium Acetate 60 meq/Magnesium Sulfate 5 meq/ Multivitamins 10 ml/Chromium/ Copper/Manganese/ Seleni/Zn 1 ml/ Insulin Human Regular 30 unit/ Total Parenteral Nutrition/Amino Acids/Dextrose/ Fat Emulsion Intravenous 1,920 ml @ 80 mls/hr TPN CONT IV Last administered on 09/24/19at 21:54; Start 09/24/19 at 22:00; Stop 09/25/19 at 21:59; Status DC Norepinephrine Bitartrate 8 mg/ Dextrose 258 ml @ 13.332 mls/ hr CONT PRN IV PER PROTOCOL Last administered on 10/20/19at 09:09; Start 09/25/19 at 06:30 Albumin Human 500 ml @ 125 mls/hr 1X ONCE IV Last administered on 09/25/19at 08:10; Start 09/25/19 at 08:15; Stop 09/25/19 at 12:14; Status DC Potassium Acetate 40 meq/Magnesium Sulfate 5 meq/ Multivitamins 10 ml/Chromium/ Copper/Manganese/ Seleni/Zn 1 ml/ Insulin Human Regular 30 unit/ Total Parenteral Nutrition/Amino Acids/Dextrose/ Fat Emulsion Intravenous 1,920 ml @ 80 mls/hr TPN CONT IV Last administered on 09/25/19at 22:23; Start 09/25/19 at 22:00; Stop 09/26/19 at 21:59; Status DC Meropenem 1 gm/ Sodium Chloride 100 ml @ 200 mls/hr Q8HRS IV ; Start 09/25/19 at 14:00; Status Cancel Meropenem 1 gm/ Sodium Chloride 100 ml @ 200 mls/hr Q8HRS IV Last administered on 09/25/19at 11:04; Start 09/25/19 at 10:00; Stop 09/25/19 at 13:00; Status DC Meropenem 1 gm/ Sodium Chloride 100 ml @ 200 mls/hr Q12HR IV Last administered on 10/13/19at 08:27; Start 09/25/19 at 21:00; Stop 10/13/19 at 08:56; Status DC Sodium Chloride 1,000 ml @ 1,000 mls/hr 1X ONCE IV Last administered on 09/25/19at 11:06; Start 09/25/19 at 10:45; Stop 09/25/19 at 11:44; Status DC Micafungin Sodium 100 mg/Dextrose 100 ml @ 100 mls/hr Q24H IV Last administered on 10/12/19at 12:34; Start 09/25/19 at 11:00; Stop 10/13/19 at 08:56; Status DC Daptomycin 410 mg/ Sodium Chloride 50 ml @ 100 mls/hr Q24H IV Last administered on 09/27/19at 13:33; Start 09/25/19 at 14:00; Stop 09/28/19 at 08:30; Status DC Midazolam HCl (Versed) 2 mg STK-MED ONCE .ROUTE ; Start 09/25/19 at 14:47; Stop 09/25/19 at 14:48; Status DC Fentanyl Citrate (Fentanyl 2ml Vial) 100 mcg STK-MED ONCE .ROUTE ; Start 09/25/19 at 14:47; Stop 09/25/19 at 14:48; Status DC Flumazenil (Romazicon) 0.5 mg STK-MED ONCE IV ; Start 09/25/19 at 14:48; Stop 09/25/19 at 14:48; Status DC Naloxone HCl (Narcan) 0.4 mg STK-MED ONCE .ROUTE ; Start 09/25/19 at 14:48; Stop 09/25/19 at 14:48; Status DC Lidocaine HCl (Lidocaine 1% 20ml Vial) 20 ml STK-MED ONCE .ROUTE ; Start 09/25/19 at 14:48; Stop 09/25/19 at 14:48; Status DC Midazolam HCl (Versed) 2 mg 1X ONCE IV Last administered on 09/25/19at 15:28; Start 09/25/19 at 15:00; Stop 09/25/19 at 15:01; Status DC Fentanyl Citrate (Fentanyl 2ml Vial) 100 mcg 1X ONCE IV Last administered on 09/25/19at 15:28; Start 09/25/19 at 15:00; Stop 09/25/19 at 15:01; Status DC Lidocaine HCl (Lidocaine 1% 20ml Vial) 20 ml 1X ONCE INJ Last administered on 09/25/19at 15:30; Start 09/25/19 at 15:00; Stop 09/25/19 at 15:01; Status DC Sodium Chloride 1,000 ml @ 100 mls/hr Q10H IV Last administered on 10/04/19at 07:30; Start 09/25/19 at 20:00; Stop 10/04/19 at 11:26; Status DC Sodium Bicarbonate (Sodium Bicarb Adult 8.4% Syr) 50 meq 1X ONCE IV Last administered on 09/25/19at 21:47; Start 09/25/19 at 22:00; Stop 09/25/19 at 22:01; Status DC Potassium Acetate 40 meq/Magnesium Sulfate 5 meq/ Multivitamins 10 ml/Chromium/ Copper/Manganese/ Seleni/Zn 1 ml/ Insulin Human Regular 30 unit/ Total Parenteral Nutrition/Amino Acids/Dextrose/ Fat Emulsion Intravenous 1,920 ml @ 80 mls/hr TPN CONT IV Last administered on 09/26/19at 22:28; Start 09/26/19 at 22:00; Stop 09/27/19 at 21:59; Status DC Sodium Chloride 500 ml @ 500 mls/hr 1X ONCE IV Last administered on 09/27/19at 06:39; Start 09/27/19 at 06:45; Stop 09/27/19 at 07:44; Status DC Potassium Acetate 40 meq/Magnesium Sulfate 5 meq/ Multivitamins 10 ml/Chromium/ Copper/Manganese/ Seleni/Zn 1 ml/ Insulin Human Regular 30 unit/ Total Parenteral Nutrition/Amino Acids/Dextrose/ Fat Emulsion Intravenous 1,920 ml @ 80 mls/hr TPN CONT IV Last administered on 09/27/19at 22:03; Start 09/27/19 at 22:00; Stop 09/28/19 at 21:59; Status DC Metoprolol Tartrate (Lopressor Vial) 5 mg PRN Q6HRS PRN IVP HYPERTENSION Last administered on 11/12/19at 09:44; Start 09/28/19 at 09:00 Potassium Acetate 40 meq/Magnesium Sulfate 5 meq/ Multivitamins 10 ml/Chromium/ Copper/Manganese/ Seleni/Zn 1 ml/ Insulin Human Regular 30 unit/ Total P arenteral Nutrition/Amino Acids/Dextrose/ Fat Emulsion Intravenous 1,920 ml @ 80 mls/hr TPN CONT IV Last administered on 09/28/19at 21:26; Start 09/28/19 at 22:00; Stop 09/29/19 at 21:59; Status DC Potassium Acetate 40 meq/Magnesium Sulfate 5 meq/ Multivitamins 10 ml/Chromium/ Copper/Manganese/ Seleni/Zn 1 ml/ Insulin Human Regular 30 unit/ Total Parenteral Nutrition/Amino Acids/Dextrose/ Fat Emulsion Intravenous 1,920 ml @ 80 mls/hr TPN CONT IV Last administered on 09/29/19at 23:23; Start 09/29/19 at 22:00; Stop 09/30/19 at 21:59; Status DC Potassium Acetate 40 meq/Magnesium Sulfate 5 meq/ Multivitamins 10 ml/Chromium/ Copper/Manganese/ Seleni/Zn 1 ml/ Insulin Human Regular 30 unit/ Total Parenteral Nutrition/Amino Acids/Dextrose/ Fat Emulsion Intravenous 1,920 ml @ 80 mls/hr TPN CONT IV Last administered on 09/30/19at 21:35; Start 09/30/19 at 22:00; Stop 10/01/19 at 21:59; Status DC Furosemide (Lasix) 20 mg 1X ONCE IVP Last administered on 10/01/19at 06:26; Start 10/01/19 at 06:15; Stop 10/01/19 at 06:16; Status DC Methylprednisolone Sodium Succinate (SOLU-Medrol 125MG VIAL) 125 mg 1X ONCE IV Last administered on 10/01/19at 06:26; Start 10/01/19 at 06:15; Stop 10/01/19 at 06:16; Status DC Albuterol/ Ipratropium (Duoneb) 3 ml Q4HRS NEB Last administered on 11/13/19at 03:43; Start 10/01/19 at 08:00 Fentanyl Citrate 30 ml @ 0 mls/hr CONT PRN IV SEE PROTOCOL Last administered on 10/22/19at 08:03; Start 10/01/19 at 06:00; Stop 10/22/19 at 12:42; Status DC Propofol 100 ml @ 0 mls/hr CONT PRN IV SEE PROTOCOL Last administered on 10/08/19at 23:50; Start 10/01/19 at 06:00 Fentanyl Citrate (Fentanyl 2ml Vial) 25 mcg PRN Q1HR PRN IV SEE COMMENTS Last administered on 11/13/19at 04:17; Start 10/01/19 at 06:00 Fentanyl Citrate (Fentanyl 2ml Vial) 50 mcg PRN Q1HR PRN IV SEE COMMENTS Last administered on 11/12/19at 11:31; Start 10/01/19 at 06:00 Chlorhexidine Gluconate (Peridex) 15 ml BID MM ; Start 10/01/19 at 09:00; Stop 10/01/19 at 07:58; Status DC Potassium Acetate 40 meq/Magnesium Sulfate 5 meq/ Multivitamins 10 ml/Chromium/ Copper/Manganese/ Seleni/Zn 1 ml/ Insulin Human Regular 30 unit/ Total Parenteral Nutrition/Amino Acids/Dextrose/ Fat Emulsion Intravenous 1,920 ml @ 80 mls/hr TPN CONT IV Last administered on 10/01/19at 21:19; Start 10/01/19 at 22:00; Stop 10/02/19 at 21:59; Status DC Acetylcysteine (Mucomyst 20% Resp Treatment) 600 mg BID NEB Last administered on 10/07/19at 09:33; Start 10/01/19 at 21:00; Stop 10/07/19 at 10:39; Status DC Magnesium Sulfate 100 ml @ 25 mls/hr 1X ONCE IV Last administered on 10/01/19at 15:48; Start 10/01/19 at 15:45; Stop 10/01/19 at 19:44; Status DC Potassium Acetate 40 meq/Magnesium Sulfate 5 meq/ Multivitamins 10 ml/Chromium/ Copper/Manganese/ Seleni/Zn 1 ml/ Insulin Human Regular 30 unit/ Total Parenteral Nutrition/Amino Acids/Dextrose/ Fat Emulsion Intravenous 1,920 ml @ 80 mls/hr TPN CONT IV Last administered on 10/02/19at 21:35; Start 10/02/19 at 22:00; Stop 10/03/19 at 21:59; Status DC Potassium Chloride/Water 100 ml @ 100 mls/hr Q1H IV Last administered on 10/03/19at 08:31; Start 10/03/19 at 07:00; Stop 10/03/19 at 08:59; Status DC Potassium Acetate 40 meq/Magnesium Sulfate 5 meq/ Multivitamins 10 ml/Chromium/ Copper/Manganese/ Seleni/Zn 1 ml/ Insulin Human Regular 30 unit/ Total Parenteral Nutrition/Amino Acids/Dextrose/ Fat Emulsion Intravenous 1,920 ml @ 80 mls/hr TPN CONT IV Last administered on 10/03/19at 21:54; Start 10/03/19 at 22:00; Stop 10/04/19 at 19:34; Status DC Lidocaine HCl (Buffered Lidocaine 1%) 3 ml STK-MED ONCE .ROUTE ; Start 10/03/19 at 12:14; Stop 10/03/19 at 12:14; Status DC Lidocaine HCl (Buffered Lidocaine 1%) 3 ml 1X ONCE IJ Last administered on 10/03/19at 13:11; Start 10/03/19 at 13:00; Stop 10/03/19 at 13:01; Status DC Magnesium Sulfate 50 ml @ 25 mls/hr 1X ONCE IV ; Start 10/04/19 at 08:15; Stop 10/04/19 at 10:14; Status DC Potassium Acetate 40 meq/Magnesium Sulfate 10 meq/ Multivitamins 10 ml/Chromium/ Copper/Manganese/ Seleni/Zn 1 ml/ Insulin Human Regular 20 unit/ Total Parenteral Nutrition/Amino Acids/Dextrose/ Fat Emulsion Intravenous 1,920 ml @ 80 mls/hr TPN CONT IV Last administered on 10/04/19at 21:32; Start 10/04/19 at 22:00; Stop 10/05/19 at 21:59; Status DC Potassium Chloride/Water 100 ml @ 100 mls/hr Q1H IV Last administered on 10/05/19at 09:12; Start 10/05/19 at 08:00; Stop 10/05/19 at 09:59; Status DC Alteplase, Recombinant (Cathflo For Central Catheter Clearance) 4 mg 1X ONCE INT CAT ; Start 10/05/19 at 09:15; Stop 10/05/19 at 09:16; Status UNV Alteplase, Recombinant (Cathflo For Central Catheter Clearance) 4 mg 1X ONCE INT CAT ; Start 10/05/19 at 09:15; Stop 10/05/19 at 09:16; Status UNV Alteplase, Recombinant (Cathflo For Central Catheter Clearance) 4 mg 1X ONCE INT CAT ; Start 10/05/19 at 09:15; Stop 10/05/19 at 09:16; Status UNV Alteplase, Recombinant 4 mg/ Sodium Chloride 20 ml @ 20 mls/hr 1X ONCE IV Last administered on 10/05/19at 10:10; Start 10/05/19 at 10:00; Stop 10/05/19 at 10:59; Status DC Alteplase, Recombinant 4 mg/ Sodium Chloride 20 ml @ 20 mls/hr 1X ONCE IV Last administered on 10/05/19at 10:09; Start 10/05/19 at 10:00; Stop 10/05/19 at 10:59; Status DC Alteplase, Recombinant 4 mg/ Sodium Chloride 20 ml @ 20 mls/hr 1X ONCE IV Last administered on 10/05/19at 10:09; Start 10/05/19 at 10:00; Stop 10/05/19 at 10:59; Status DC Potassium Acetate 60 meq/Magnesium Sulfate 10 meq/ Multivitamins 10 ml/Chromium/ Copper/Manganese/ Seleni/Zn 1 ml/ Insulin Human Regular 20 unit/ Total Parenteral Nutrition/Amino Acids/Dextrose/ Fat Emulsion Intravenous 1,920 ml @ 80 mls/hr TPN CONT IV Last administered on 10/05/19at 21:55; Start 10/05/19 at 22:00; Stop 10/06/19 at 21:59; Status DC Albumin Human 500 ml @ 125 mls/hr 1X ONCE IV Last administered on 10/06/19at 12:01; Start 10/06/19 at 11:15; Stop 10/06/19 at 15:14; Status DC Sodium Chloride 500 ml @ 500 mls/hr 1X ONCE IV Last administered on 10/06/19at 13:50; Start 10/06/19 at 11:15; Stop 10/06/19 at 12:14; Status DC Potassium Acetate 60 meq/Magnesium Sulfate 14 meq/ Multivitamins 10 ml/Chromium/ Copper/Manganese/ Seleni/Zn 1 ml/ Insulin Human Regular 20 unit/ Total Parenteral Nutrition/Amino Acids/Dextrose/ Fat Emulsion Intravenous 1,920 ml @ 80 mls/hr TPN CONT IV Last administered on 10/06/19at 22:26; Start 10/06/19 at 22:00; Stop 10/07/19 at 21:59; Status DC Ciprofloxacin/ Dextrose 200 ml @ 200 mls/hr Q12HR IV Last administered on 10/13/19at 08:27; Start 10/06/19 at 21:00; Stop 10/13/19 at 08:56; Status DC Albumin Human 250 ml @ 62.5 mls/hr 1X ONCE IV Last administered on 10/07/19at 11:09; Start 10/07/19 at 11:00; Stop 10/07/19 at 14:59; Status DC Furosemide (Lasix) 20 mg 1X ONCE IVP Last administered on 10/07/19at 14:52; Start 10/07/19 at 10:45; Stop 10/07/19 at 10:49; Status DC Potassium Acetate 60 meq/Magnesium Sulfate 14 meq/ Multivitamins 10 ml/Chromium/ Copper/Manganese/ Seleni/Zn 1 ml/ Insulin Human Regular 15 unit/ Total Parenteral Nutrition/Amino Acids/Dextrose/ Fat Emulsion Intravenous 1,920 ml @ 80 mls/hr TPN CONT IV Last administered on 10/07/19at 22:08; Start 10/07/19 at 22:00; Stop 10/08/19 at 21:59; Status DC Potassium Acetate 60 meq/Magnesium Sulfate 14 meq/ Multivitamins 10 ml/Chromium/ Copper/Manganese/ Seleni/Zn 1 ml/ Insulin Human Regular 15 unit/ Total Parenteral Nutrition/Amino Acids/Dextrose/ Fat Emulsion Intravenous 1,920 ml @ 80 mls/hr TPN CONT IV Last administered on 10/08/19at 22:12; Start 10/08/19 at 22:00; Stop 10/09/19 at 21:59; Status DC Potassium Acetate 60 meq/Magnesium Sulfate 14 meq/ Multivitamins 10 ml/Chromium/ Copper/Manganese/ Seleni/Zn 1 ml/ Insulin Human Regular 15 unit/ Total Parenteral Nutrition/Amino Acids/Dextrose/ Fat Emulsion Intravenous 1,920 ml @ 80 mls/hr TPN CONT IV Last administered on 10/09/19at 22:22; Start 10/09/19 at 22:00; Stop 10/10/19 at 21:59; Status DC Furosemide (Lasix) 20 mg 1X ONCE IVP Last administered on 10/10/19at 11:07; Start 10/10/19 at 10:30; Stop 10/10/19 at 10:34; Status DC Potassium Acetate 60 meq/Magnesium Sulfate 14 meq/ Multivitamins 10 ml/Chromium/ Copper/Manganese/ Seleni/Zn 1 ml/ Insulin Human Regular 15 unit/ Sodium Chloride 20 meq/Total Parenteral Nutrition/Amino Acids/Dextrose/ Fat Emulsion Intravenous 1,920 ml @ 80 mls/hr TPN CONT IV Last administered on 10/10/19at 21:54; Start 10/10/19 at 22:00; Stop 6/23/20 at 21:59; Status DC Potassium Acetate 30 meq/Magnesium Sulfate 14 meq/ Multivitamins 10 ml/Chromium/ Copper/Manganese/ Seleni/Zn 1 ml/ Insulin Human Regular 15 unit/ Sodium Chloride 20 meq/Potassium Chloride 30 meq/ Total Parenteral Nutrition/Amino Acids/Dextrose/ Fat Emulsion Intravenous 1,920 ml @ 80 mls/hr TPN CONT IV Last administered on 10/11/19at 21:46; Start 10/11/19 at 22:00; Stop 10/12/19 at 21:59; Status DC Sodium Chloride 80 meq/Potassium Chloride 30 meq/ Potassium Acetate 30 meq/Magnesium Sulfate 14 meq/ Multivitamins 10 ml/Chromium/ Copper/Manganese/ Seleni/Zn 1 ml/ Insulin Human Regular 15 unit/ Total Parenteral Nutrition/Amino Acids/Dextrose/ Fat Emulsion Intravenous 1,920 ml @ 80 mls/hr TPN CONT IV Last administered on 10/12/19at 22:33; Start 10/12/19 at 22:00; Stop 10/13/19 at 21:59; Status DC Furosemide (Lasix) 40 mg 1X ONCE IVP Last administered on 10/12/19at 16:27; Start 10/12/19 at 15:30; Stop 10/12/19 at 15:33; Status DC Albumin Human 250 ml @ 62.5 mls/hr 1X ONCE IV Last administered on 10/12/19at 16:27; Start 10/12/19 at 15:30; Stop 10/12/19 at 19:29; Status DC Sodium Chloride 80 meq/Potassium Chloride 30 meq/ Potassium Acetate 30 meq/Magnesium Sulfate 14 meq/ Multivitamins 10 ml/Chromium/ Copper/Manganese/ Seleni/Zn 1 ml/ Insulin Human Regular 15 unit/ Total Parenteral Nutrition/Amino Acids/Dextrose/ Fat Emulsion Intravenous 1,920 ml @ 80 mls/hr TPN CONT IV Last administered on 10/13/19at 22:25; Start 10/13/19 at 22:00; Stop 10/14/19 at 21:59; Status DC Sodium Chloride 80 meq/Potassium Chloride 30 meq/ Potassium Acetate 30 meq/Magnesium Sulfate 14 meq/ Multivitamins 10 ml/Chromium/ Copper/Manganese/ Seleni/Zn 1 ml/ Insulin Human Regular 15 unit/ Total Parenteral Nutrition/Amino Acids/Dextrose/ Fat Emulsion Intravenous 1,920 ml @ 80 mls/hr TPN CONT IV Last administered on 10/14/19at 21:32; Start 10/14/19 at 22:00; Stop 10/15/19 at 21:59; Status DC Sodium Chloride 80 meq/Potassium Chloride 30 meq/ Potassium Acetate 30 meq/Magnesium Sulfate 14 meq/ Multivitamins 10 ml/Chromium/ Copper/Manganese/ Seleni/Zn 1 ml/ Insulin Human Regular 15 unit/ Total Parenteral Nutrition/Amino Acids/Dextrose/ Fat Emulsion Intravenous 1,920 ml @ 80 mls/hr TPN CONT IV Last administered on 10/15/19at 21:53; Start 10/15/19 at 22:00; Stop 10/16/19 at 21:59; Status DC Acetylcysteine (Mucomyst 20% Resp Treatment) 600 mg RTBID NEB Last administered on 11/12/19at 20:16; Start 10/15/19 at 12:00 Sodium Chloride 80 meq/Potassium Chloride 30 meq/ Potassium Acetate 30 meq/Magnesium Sulfate 14 meq/ Multivitamins 10 ml/Chromium/ Copper/Manganese/ Seleni/Zn 1 ml/ Insulin Human Regular 15 unit/ Total Parenteral Nutrition/Amino Acids/Dextrose/ Fat Emulsion Intravenous 1,920 ml @ 80 mls/hr TPN CONT IV Last administered on 10/16/19at 22:06; Start 10/16/19 at 22:00; Stop 10/17/19 at 21:59; Status DC Meropenem 500 mg/ Sodium Chloride 50 ml @ 100 mls/hr Q6HRS IV Last administered on 11/08/19at 06:15; Start 10/16/19 at 18:00; Stop 11/08/19 at 08:23; Status DC Daptomycin 500 mg/ Sodium Chloride 50 ml @ 100 mls/hr Q24H IV Last administered on 10/24/19at 21:47; Start 10/16/19 at 19:00; Stop 10/25/19 at 08:13; Status DC Sodium Chloride 80 meq/Potassium Chloride 30 meq/ Potassium Acetate 30 meq/Magnesium Sulfate 14 meq/ Multivitamins 10 ml/Chromium/ Copper/Manganese/ Seleni/Zn 1 ml/ Insulin Human Regular 15 unit/ Total Parenteral Nutrition/Amino Acids/Dextrose/ Fat Emulsion Intravenous 1,920 ml @ 80 mls/hr TPN CONT IV Last administered on 10/17/19at 22:09; Start 10/17/19 at 22:00; Stop 10/18/19 at 21:59; Status DC Heparin Sodium (Porcine) 1000 unit/Sodium Chloride 1,001 ml @ 1,001 mls/hr 1X ONCE IRR ; Start 10/18/19 at 06:00; Stop 10/18/19 at 06:59; Status DC Propofol (Diprivan) 200 mg STK-MED ONCE IV ; Start 10/18/19 at 07:44; Stop 10/18/19 at 07:44; Status DC Lidocaine HCl (Lidocaine Pf 2% Vial) 5 ml STK-MED ONCE .ROUTE ; Start 10/18/19 at 07:44; Stop 10/18/19 at 07:44; Status DC Fentanyl Citrate (Fentanyl 2ml Vial) 100 mcg STK-MED ONCE .ROUTE ; Start 10/18/19 at 07:44; Stop 10/18/19 at 07:44; Status DC Rocuronium [place] (Zemuron) 100 mg STK-MED ONCE .ROUTE ; Start 10/18/19 at 07:44; Stop 10/18/19 at 07:44; Status DC Micafungin Sodium 100 mg/Dextrose 100 ml @ 100 mls/hr Q24H IV Last administered on 11/12/19at 07:58; Start 10/18/19 at 08:30 Bupivacaine HCl/ Epinephrine Bitart (Sensorcain-Epi 0.5%-1:[id number] Mpf) 30 ml STK-MED ONCE .ROUTE ; Start 10/18/19 at 08:34; Stop 10/18/19 at 08:35; Status DC Iohexol (Omnipaque 300 Mg/ml) 50 ml STK-MED ONCE .ROUTE Last administered on 10/18/19at 13:30; Start 10/18/19 at 08:35; Stop 10/18/19 at 08:35; Status DC Sodium Chloride 80 meq/Potassium Chloride 30 meq/ Potassium Acetate 30 meq/Magnesium Sulfate 14 meq/ Multivitamins 10 ml/Chromium/ Copper/Manganese/ Seleni/Zn 1 ml/ Insulin Human Regular 15 unit/ Total Parenteral Nutrition/Amino Acids/Dextrose/ Fat Emulsion Intravenous 1,920 ml @ 80 mls/hr TPN CONT IV Last administered on 10/19/19at 01:22; Start 10/18/19 at 22:00; Stop 10/19/19 at 21:59; Status DC Phenylephrine HCl (Brayden-Synephrine Inj) 10 mg STK-MED ONCE .ROUTE ; Start 10/18/19 at 10:15; Stop 10/18/19 at 10:15; Status DC Desflurane (Suprane) 90 ml STK-MED ONCE IH ; Start 10/18/19 at 10:18; Stop 10/18/19 at 10:19; Status DC Albumin Human 500 ml @ As Directed STK-MED ONCE IV ; Start 10/18/19 at 11:06; Stop 10/18/19 at 11:06; Status DC Vasopressin (Vasostrict) 20 unit STK-MED ONCE .ROUTE ; Start 10/18/19 at 12:23; Stop 10/18/19 at 12:23; Status DC Phenylephrine HCl (Brayden-Synephrine Inj) 10 mg STK-MED ONCE .ROUTE ; Start 10/18/19 at 13:33; Stop 10/18/19 at 13:33; Status DC Phenylephrine HCl (Brayden-Synephrine Inj) 10 mg STK-MED ONCE .ROUTE ; Start 10/18/19 at 13:33; Stop 10/18/19 at 13:33; Status DC Ondansetron HCl (Zofran) 4 mg STK-MED ONCE .ROUTE ; Start 10/18/19 at 13:33; Stop 10/18/19 at 13:33; Status DC Enoxaparin Sodium (Lovenox 40mg Syringe) 40 mg Q24H SQ Last administered on 11/12/19at 07:56; Start 10/19/19 at 08:00 Sodium Chloride (Normal Saline Flush) 3 ml QSHIFT PRN IV AFTER MEDS AND BLOOD DRAWS; Start 10/18/19 at 14:45 Naloxone HCl (Narcan) 0.4 mg PRN Q2MIN PRN IV SEE INSTRUCTIONS; Start 10/18/19 at 14:45 Sodium Chloride 1,000 ml @ 25 mls/hr Q24H IV Last administered on 11/08/19at 14:54; Start 10/18/19 at 14:33 Morphine Sulfate (Morphine Sulfate) 1 mg PRN Q1HR PRN IV PAIN Last administered on 11/12/19at 18:28; Start 10/18/19 at 14:45 Midazolam HCl 100 mg/Sodium Chloride 100 ml @ 1 mls/hr CONT PRN IV SEE I/O RECORD Last administered on 10/21/19at 18:48; Start 10/18/19 at 14:45 Phenylephrine HCl (PHENYLEPHRINE in 0.9% NACL PF) 1 mg STK-MED ONCE IV ; Start 10/18/19 at 14:44; Stop 10/18/19 at 14:45; Status DC Ephedrine Sulfate (ePHEDrine PF IN SALINE SYRINGE) 50 mg STK-MED ONCE IV ; Start 10/18/19 at 14:45; Stop 10/18/19 at 14:45; Status DC Vasopressin 20 unit/Dextrose 101 ml @ 12 mls/hr CONT PRN IV SEE I/O RECORD Last administered on 10/25/19at 04:17; Start 10/18/19 at 15:30 Sodium Chloride 1,000 ml @ 1,000 mls/hr 1X ONCE IV Last administered on 10/18/19at 15:42; Start 10/18/19 at 15:45; Stop 10/18/19 at 16:44; Status DC Albumin Human 500 ml @ 125 mls/hr 1X ONCE IV ; Start 10/18/19 at 16:00; Stop 10/18/19 at 19:59; Status DC Albumin Human 500 ml @ 125 mls/hr PRN Q1HR PRN IV PER PROTOCOL; Start 10/18/19 at 15:45 Magnesium Sulfate 50 ml @ 25 mls/hr 1X ONCE IV Last administered on 10/18/19at 17:02; Start 10/18/19 at 16:30; Stop 10/18/19 at 18:29; Status DC Sodium Bicarbonate (Sodium Bicarb Adult 8.4% Syr) 50 meq STK-MED ONCE .ROUTE ; Start 10/18/19 at 16:20; Stop 10/18/19 at 16:20; Status DC Sodium Bicarbonate (Sodium Bicarb Adult 8.4% Syr) 100 meq 1X ONCE IV Last administered on 10/18/19at 17:07; Start 10/18/19 at 16:30; Stop 10/18/19 at 16:3 1; Status DC Sodium Bicarbonate 150 meq/Dextrose 1,150 ml @ 75 mls/hr 1X ONCE IV Last administered on 10/18/19at 20:02; Start 10/18/19 at 16:30; Stop 10/19/19 at 07:49; Status DC Sodium Chloride 80 meq/Potassium Chloride 30 meq/ Potassium Acetate 30 meq /Magnesium Sulfate 14 meq/ Multivitamins 10 ml/Chromium/ Copper/Manganese/ Seleni/Zn 1 ml/ Insulin Human Regular 15 unit/ Total Parenteral Nutrition/Amino Acids/Dextrose/ Fat Emulsion Intravenous 1,920 ml @ 80 mls/hr TPN CONT IV Last administered on 10/19/19at 23:05; Start 10/19/19 at 22:00; Stop 10/20/19 at 21:59; Status DC Sodium Chloride 100 meq/Potassium Chloride 30 meq/ Potassium Acetate 30 meq/Magnesium Sulfate 12 meq/ Multivitamins 10 ml/Chromium/ Copper/Manganese/ Seleni/Zn 1 ml/ Insulin Human Regular 15 unit/ Total Parenteral Nutrition/Amino Acids/Dextrose/ Fat Emulsion Intravenous 1,920 ml @ 80 mls/hr TPN CONT IV Last administered on 10/20/19at 21:52; Start 10/20/19 at 22:00; Stop 10/21/19 at 21:59; Status DC Sodium Chloride 100 meq/Potassium Chloride 30 meq/ Potassium Acetate 30 meq/Magnesium Sulfate 12 meq/ Multivitamins 10 ml/Chromium/ Copper/Manganese/ Seleni/Zn 1 ml/ Insulin Human Regular 15 unit/ Total Parenteral Nutrition/Amino Acids/Dextrose/ Fat Emulsion Intravenous 1,920 ml @ 80 mls/hr TPN CONT IV Last administered on 10/21/19at 21:46; Start 10/21/19 at 22:00; Stop 10/22/19 at 21:59; Status DC Sodium Chloride 100 meq/Potassium Chloride 30 meq/ Potassium Acetate 30 meq/Magnesium Sulfate 12 meq/ Multivitamins 10 ml/Chromium/ Copper/Manganese/ Seleni/Zn 1 ml/ Insulin Human Regular 15 unit/ Total Parenteral Nutrition/Amino Acids/Dextrose/ Fat Emulsion Intravenous 1,800 ml @ 75 mls/hr TPN CONT IV Last administered on 10/22/19at 22:04; Start 10/22/19 at 22:00; Stop 10/23/19 at 21:59; Status DC Fentanyl Citrate 55 ml @ 0 mls/hr CONT PRN IV SEE COMMENTS Last administered on 10/24/19at 23:55; Start 10/22/19 at 13:00; Stop 10/27/19 at 17:28; Status DC Sodium Chloride 100 meq/Potassium Chloride 30 meq/ Potassium Acetate 30 meq/Magnesium Sulfate 12 meq/ Multivitamins 10 ml/Chromium/ Copper/Manganese/ Seleni/Zn 1 ml/ Insulin Human Regular 15 unit/ Total Parenteral Nutrition/Amino Acids/Dextrose/ Fat Emulsion Intravenous 1,680 ml @ 70 mls/hr TPN CONT IV Last administered on 10/23/19at 21:23; Start 10/23/19 at 22:00; Stop 10/24/19 at 21:59; Status DC Sodium Chloride 110 meq/Potassium Chloride 30 meq/ Potassium Acetate 30 meq/Magnesium Sulfate 15 meq/ Multivitamins 10 ml/Chromium/ Copper/Manganese/ Seleni/Zn 1 ml/ Insulin Human Regular 15 unit/ Total Parenteral Nutrition/Amino Acids/Dextrose/ Fat Emulsion Intravenous 1,680 ml @ 70 mls/hr TPN CONT IV Last administered on 10/24/19at 21:48; Start 10/24/19 at 22:00; Stop 10/25/19 at 21:59; Status DC Sodium Chloride 110 meq/Potassium Chloride 30 meq/ Potassium Acetate 30 meq/Magnesium Sulfate 15 meq/ Multivitamins 10 ml/Chromium/ Copper/Manganese/ Seleni/Zn 1 ml/ Insulin Human Regular 15 unit/ Total Parenteral Nutrition/Amino Acids/Dextrose/ Fat Emulsion Intravenous 1,680 ml @ 70 mls/hr TPN CONT IV Last administered on 10/25/19at 21:33; Start 10/25/19 at 22:00; Stop 10/26/19 at 21:59; Status DC Sodium Chloride 110 meq/Potassium Chloride 30 meq/ Potassium Acetate 30 meq/Magnesium Sulfate 15 meq/ Multivitamins 10 ml/Chromium/ Copper/Manganese/ Seleni/Zn 1 ml/ Insulin Human Regular 15 unit/ Total Parenteral Nutrition/Amino Acids/Dextrose/ Fat Emulsion Intravenous 1,680 ml @ 70 mls/hr TPN CONT IV Last administered on 10/26/19at 21:51; Start 10/26/19 at 22:00; Stop 10/27/19 at 21:59; Status DC Sodium Chloride 90 meq/Potassium Chloride 30 meq/ Potassium Acetate 30 meq/Magnesium Sulfate 15 meq/ Multivitamins 10 ml/Chromium/ Copper/Manganese/ Seleni/Zn 1 ml/ Insulin Human Regular 15 unit/ Total Parenteral Nutrition/Amino Acids/Dextrose/ Fat Emulsion Intravenous 1,680 ml @ 70 mls/hr TPN CONT IV Last administered on 10/27/19at 22:38; Start 10/27/19 at 22:00; Stop 10/28/19 at 21:59; Status DC Fentanyl Citrate 30 ml @ 0 mls/hr CONT PRN IV SEE I/O RECORD; Start 10/27/19 at 17:30 Fentanyl (Duragesic 12mcg/ Hr Patch) 1 patch Q3DAYS TD Last administered on 11/12/19at 09:09; Start 10/28/19 at 09:00 Sodium Chloride 90 meq/Potassium Chloride 30 meq/ Potassium Acetate 30 meq/Magnesium Sulfate 15 meq/ Multivitamins 10 ml/Chromium/ Copper/Manganese/ Seleni/Zn 1 ml/ Insulin Human Regular 15 unit/ Total Parenteral Nutrition/Amino Acids/Dextrose/ Fat Emulsion Intravenous 1,680 ml @ 70 mls/hr TPN CONT IV Last administered on 10/28/19at 21:59; Start 10/28/19 at 22:00; Stop 10/29/19 at 21:59; Status DC Sodium Chloride 90 meq/Potassium Chloride 30 meq/ Potassium Acetate 30 meq/Magnesium Sulfate 15 meq/ Multivitamins 10 ml/Chromium/ Copper/Manganese/ Seleni/Zn 1 ml/ Insulin Human Regular 15 unit/ Total Parenteral Nutrition/Amino Acids/Dextrose/ Fat Emulsion Intravenous 1,680 ml @ 70 mls/hr TPN CONT IV Last administered on 10/29/19at 21:35; Start 10/29/19 at 22:00; Stop 10/30/19 at 21:59; Status DC Vancomycin HCl (Vanco Per Pharmacy) 1 each PRN DAILY PRN MC SEE COMMENTS Last administered on 11/01/19at 02:46; Start 10/30/19 at 09:15; Stop 11/02/19 at 07:41; Status DC Ciprofloxacin/ Dextrose 200 ml @ 200 mls/hr Q12HR IV Last administered on 11/07/19at 21:02; Start 10/30/19 at 10:00; Stop 11/08/19 at 08:20; Status DC Vancomycin HCl 2 gm/Sodium Chloride 500 ml @ 250 mls/hr 1X ONCE IV Last administered on 10/30/19at 10:34; Start 10/30/19 at 10:00; Stop 10/30/19 at 11:59; Status DC Sodium Chloride 90 meq/Potassium Chloride 30 meq/ Potassium Acetate 30 meq/Magnesium Sulfate 15 meq/ Multivitamins 10 ml/Chromium/ Copper/Manganese/ Seleni/Zn 1 ml/ Insulin Human Regular 15 unit/ Total Parenteral Nutrition/Amino Acids/Dextrose/ Fat Emulsion Intravenous 1,680 ml @ 70 mls/hr TPN CONT IV Last administered on 10/30/19at 22:02; Start 10/30/19 at 22:00; Stop 10/31/19 at 21:59; Status DC Diphenhydramine HCl (Benadryl) 25 mg 1X ONCE IVP Last administered on 10/30/19at 14:26; Start 10/30/19 at 14:30; Stop 10/30/19 at 14:31; Status DC Vancomycin HCl 1.5 gm/Sodium Chloride 500 ml @ 250 mls/hr Q8H IV Last administered on 10/31/19at 03:08; Start 10/30/19 at 18:30; Stop 10/31/19 at 12:24; Status DC Vancomycin HCl (Vancomycin Trough Level) 1 each 1X ONCE MC Last administered on 10/31/19at 10:00; Start 10/31/19 at 10:00; Stop 10/31/19 at 10:01; Status DC Sodium Chloride 90 meq/Potassium Chloride 30 meq/ Potassium Acetate 30 meq/Magnesium Sulfate 15 meq/ Multivitamins 10 ml/Chromium/ Copper/Manganese/ Seleni/Zn 1 ml/ Insulin Human Regular 15 unit/ Total Parenteral Nutrition/Amino Acids/Dextrose/ Fat Emulsion Intravenous 1,680 ml @ 70 mls/hr TPN CONT IV Last administered on 10/31/19at 22:13; Start 10/31/19 at 22:00; Stop 11/01/19 at 21:59; Status DC Vancomycin HCl (Vancomycin Random Level) 1 each 1X ONCE MC Last administered on 11/01/19at 01:00; Start 11/01/19 at 01:00; Stop 11/01/19 at 01:01; Status DC Vancomycin HCl 1.5 gm/Sodium Chloride 500 ml @ 250 mls/hr Q12H IV Last administered on 11/01/19at 22:07; Start 11/01/19 at 10:00; Stop 11/02/19 at 07:41; Status DC Vancomycin HCl (Vancomycin Trough Level) 1 each 1X ONCE MC ; Start 11/02/19 at 09:30; Stop 11/02/19 at 09:31; Status Cancel Sodium Chloride 90 meq/Potassium Chloride 30 meq/ Potassium Acetate 30 meq/Magnesium Sulfate 15 meq/ Multivitamins 10 ml/Chromium/ Copper/Manganese/ Seleni/Zn 1 ml/ Insulin Human Regular 15 unit/ Total Parenteral Nutrition/Amino Acids/Dextrose/ Fat Emulsion Intravenous 1,680 ml @ 70 mls/hr TPN CONT IV Last administered on 11/01/19at 22:08; Start 11/01/19 at 22:00; Stop 11/02/19 at 21:59; Status DC Alteplase, Recombinant (Cathflo For Central Catheter Clearance) 1 mg 1X ONCE INT CAT Last administered on 11/01/19at 11:49; Start 11/01/19 at 11:00; Stop 11/01/19 at 11:01; Status DC Daptomycin 500 mg/ Sodium Chloride 50 ml @ 100 mls/hr Q24H IV Last administered on 11/11/19at 08:25; Start 11/02/19 at 09:00; Stop 11/11/19 at 08:38; Status DC Sodium Chloride 90 meq/Potassium Chloride 30 meq/ Potassium Acetate 30 meq/Magnesium Sulfate 15 meq/ Multivitamins 10 ml/Chromium/ Copper/Manganese/ Seleni/Zn 1 ml/ Insulin Human Regular 15 unit/ Total Parenteral Nutrition/Amino Acids/Dextrose/ Fat Emulsion Intravenous 1,680 ml @ 70 mls/hr TPN CONT IV Last administered on 11/02/19at 22:55; Start 11/02/19 at 22:00; Stop 11/03/19 at 21:59; Status DC Sodium Chloride 90 meq/Potassium Chloride 30 meq/ Potassium Acetate 30 meq/Magnesium Sulfate 15 meq/ Multivitamins 10 ml/Chromium/ Copper/Manganese/ Seleni/Zn 1 ml/ Insulin Human Regular 15 unit/ Total Parenteral Nutrition/Amino Acids/Dextrose/ Fat Emulsion Intravenous 1,680 ml @ 70 mls/hr TPN CONT IV Last administered on 11/03/19at 22:06; Start 11/03/19 at 22:00; Stop 11/04/19 at 21:59; Status DC Diphenhydramine HCl (Benadryl) 50 mg STK-MED ONCE .ROUTE ; Start 11/03/19 at 18:34; Stop 11/03/19 at 18:35; Status DC Diphenhydramine HCl (Benadryl) 25 mg 1X ONCE IM ; Start 11/03/19 at 18:45; Stop 11/03/19 at 18:46; Status DC Diphenhydramine HCl (Benadryl) 25 mg 1X ONCE IVP Last administered on 11/03/19at 18:56; Start 11/03/19 at 19:00; Stop 11/03/19 at 19:01; Status DC Alprazolam (Xanax) 0.5 mg PRN TID PRN PO ANXIETY / AGITATION Last administered on 11/10/19at 11:49; Start 11/04/19 at 08:00; Stop 11/10/19 at 15:54; Status DC Sodium Chloride 110 meq/Potassium Chloride 30 meq/ Potassium Acetate 30 meq/Magnesium Sulfate 15 meq/ Multivitamins 10 ml/Chromium/ Copper/Manganese/ Seleni/Zn 1 ml/ Insulin Human Regular 15 unit/ Total Parenteral Nutrition/Amino Acids/Dextrose/ Fat Emulsion Intravenous 1,680 ml @ 70 mls/hr TPN CONT IV Last administered on 11/04/19at 21:21; Start 11/04/19 at 22:00; Stop 11/05/19 at 21:59; Status DC Sodium Chloride 110 meq/Potassium Chloride 30 meq/ Potassium Acetate 30 meq/Magnesium Sulfate 15 meq/ Multivitamins 10 ml/Chromium/ Copper/Manganese/ Seleni/Zn 1 ml/ Insulin Human Regular 15 unit/ Total Parenteral Nutrition/Amino Acids/Dextrose/ Fat Emulsion Intravenous 1,680 ml @ 70 mls/hr TPN CONT IV Last administered on 11/05/19at 22:01; Start 11/05/19 at 22:00; Stop 11/06/19 at 21:59; Status DC Alteplase, Recombinant (Cathflo For Central Catheter Clearance) 1 mg 1X ONCE INT CAT Last administered on 11/06/19at 08:23; Start 11/06/19 at 08:15; Stop 11/06/19 at 08:16; Status DC Sodium Chloride 110 meq/Sodium Phosphate 10 mmol/ Potassium Chloride 30 meq/ Potassium Acetate 30 meq/Magnesium Sulfate 15 meq/ Multivitamins 10 ml/Chromium/ Copper/Manganese/ Seleni/Zn 1 ml/ Insulin Human Regular 15 unit/ Total Parenteral Nutrition/Amino Acids/Dextrose/ Fat Emulsion Intravenous 1,680 ml @ 70 mls/hr TPN CONT IV Last administered on 11/06/19at 22:03; Start 11/06/19 at 22:00; Stop 11/07/19 at 21:59; Status DC Sodium Chloride 120 meq/Sodium Phosphate 10 mmol/ Potassium Chloride 30 meq/ Potassium Acetate 30 meq/Magnesium Sulfate 15 meq/ Multivitamins 10 ml/Chromium/ Copper/Manganese/ Seleni/Zn 1 ml/ Insulin Human Regular 15 unit/ Total Parenteral Nutrition/Amino Acids/Dextrose/ Fat Emulsion Intravenous 1,680 ml @ 70 mls/hr TPN CONT IV Last administered on 11/07/19at 22:08; Start 11/07/19 at 22:00; Stop 11/08/19 at 21:59; Status DC Ceftazidime/ Avibactam 2.5 gm/ Sodium Chloride 100 ml @ 50 mls/hr Q8HRS IV Last administered on 11/09/19at 05:32; Start 11/08/19 at 14:00; Stop 11/09/19 at 07:48; Status DC Alteplase, Recombinant (Cathflo For Central Catheter Clearance) 1 mg 1X ONCE INT CAT Last administered on 11/08/19at 09:30; Start 11/08/19 at 09:30; Stop 11/08/19 at 09:31; Status DC Sodium Chloride 120 meq/Sodium Phosphate 10 mmol/ Potassium Chloride 30 meq/ Potassium Acetate 30 meq/Magnesium Sulfate 15 meq/ Multivitamins 10 ml/Chromium/ Copper/Manganese/ Seleni/Zn 1 ml/ Insulin Human Regular 15 unit/ Total Parenteral Nutrition/Amino Acids/Dextrose/ Fat Emulsion Intravenous 1,680 ml @ 70 mls/hr TPN CONT IV Last administered on 11/08/19at 22:11; Start 11/08/19 at 22:00; Stop 11/09/19 at 21:59; Status DC Iohexol (Omnipaque 300 Mg/ml) 75 ml 1X ONCE IV Last administered on 11/08/19at 11:30; Start 11/08/19 at 11:30; Stop 11/08/19 at 11:31; Status DC Info (CONTRAST GIVEN -- Rx MONITORING) 1 each PRN DAILY PRN MC SEE COMMENTS; Start 11/08/19 at 11:45; Stop 11/10/19 at 11:44; Status DC Alteplase, Recombinant (Cathflo For Central Catheter Clearance) 1 mg 1X ONCE INT CAT Last administered on 11/08/19at 12:17; Start 11/08/19 at 12:00; Stop 11/08/19 at 12:01; Status DC Cefepime HCl (Maxipime) 2 gm Q12HR IVP Last administered on 11/09/19at 20:53; Start 11/09/19 at 09:00; Stop 11/10/19 at 07:30; Status DC Sodium Chloride 120 meq/Sodium Phosphate 10 mmol/ Potassium Chloride 30 meq/ Potassium Acetate 30 meq/Magnesium Sulfate 15 meq/ Multivitamins 10 ml/Chromium/ Copper/Manganese/ Seleni/Zn 1 ml/ Insulin Human Regular 15 unit/ Total Parenteral Nutrition/Amino Acids/Dextrose/ Fat Emulsion Intravenous 1,680 ml @ 70 mls/hr TPN CONT IV Last administered on 11/09/19at 21:25; Start 11/09/19 at 22:00; Stop 11/10/19 at 21:59; Status DC Ceftazidime/ Avibactam 2.5 gm/ Sodium Chloride 250 ml @ 125 mls/hr Q8HRS IV [place] [facility] administered on 11/13/19at 06:19; Start 11/10/19 at 08:00 Sodium Chloride 120 meq/Sodium Phosphate 10 mmol/ Potassium Chloride 30 meq/ Potassium Acetate 30 meq/Magnesium Sulfate 15 meq/ Multivitamins 10 ml/Chromium/ Copper/Manganese/ Seleni/Zn 1 ml/ Insulin Human Regular 15 unit/ Total Parenteral Nutrition/Amino Acids/Dextrose/ Fat Emulsion Intravenous 1,680 ml @ 70 mls/hr TPN CONT IV Last administered on 11/10/19at 22:35; Start 11/10/19 at 22:00; Stop 11/11/19 at 21:59; Status DC Alprazolam (Xanax) 0.5 mg PRN QID PRN PO ANXIETY / AGITATION Last administered on 11/12/19at 00:57; Start 11/10/19 at 16:00 Acetaminophen/ Hydrocodone Bitart (Lortab 5/325) 1 tab PRN Q4HRS PRN PO PAIN Last administered on 11/11/19at 19:34; Start 11/10/19 at 16:00 Sodium Chloride 120 meq/Sodium Phosphate 10 mmol/ Potassium Chloride 30 meq/ Potassium Acetate 30 meq/Magnesium Sulfate 15 meq/ Multivitamins 10 ml/Chromium/ Copper/Manganese/ Seleni/Zn 1 ml/ Insulin Human Regular 15 unit/ Total Parenteral Nutrition/Amino Acids/Dextrose/ Fat Emulsion Intravenous 1,680 ml @ 70 mls/hr TPN CONT IV Last administered on 11/11/19at 21:50; Start 11/11/19 at 22:00; Stop 11/12/19 at 21:59; Status DC Sodium Chloride 120 meq/Sodium Phosphate 10 mmol/ Potassium Chloride 30 meq/ Potassium Acetate 30 meq/Magnesium Sulfate 15 meq/ Multivitamins 10 ml/Chromium/ Copper/Manganese/ Seleni/Zn 1 ml/ Insulin Human Regular 15 unit/ Total Parenteral Nutrition/Amino Acids/Dextrose/ Fat Emulsion Intravenous 1,680 ml @ 70 mls/hr TPN CONT IV Last administered on 11/12/19at 22:14; Start 11/12/19 at 22:00; Stop 11/13/19 at 21:59 Daptomycin 500 mg/ Sodium Chloride 50 ml @ 100 mls/hr Q24H IV ; Start 11/13/19 at 09:00 Active Scripts Active Reported Bisoprolol Fumarate 5 Mg Tablet 10 Mg PO DAILY Vitals/I & O Vital Sign - Last 24 Hours 11/12/19 11/12/19 11/12/19 11/12/19 08:58 09:09 09:44 11:00 Temp 99.3 99.3 Pulse 139 129 B/P (MAP) 147/73 141/84 (103) Pulse Ox 93 97 99 O2 Delivery Nasal Cannula Room Air Room Air O2 Flow Rate 2.0 2.0 2.0 11/12/19 11/12/19 11/12/19 11/12/19 11:20 11:31 12:01 13:09 Pulse Ox 98 98 98 98 O2 Delivery Nasal Cannula Nasal Cannula Nasal Cannula Nasal Cannula O2 Flow Rate 2.0 2.0 2.0 11/12/19 11/12/19 11/12/19 11/12/19 15:00 15:38 18:28 18:58 Temp 99.2 99.2 Pulse 129 Resp 30 B/P (MAP) 122/79 (93) Pulse Ox 95 98 98 100 O2 Delivery Room Air Nasal Cannula Nasal Cannula Room Air O2 Flow Rate 2.0 2.0 2.0 11/12/19 11/12/19 11/12/19 11/12/19 19:00 20:00 20:15 22:00 Temp 102.1 99.7 102.1 99.7 Pulse 134 Resp 30 B/P (MAP) 136/76 (96) Pulse Ox 100 96 O2 Delivery Room Air Room Air Nasal Cannula O2 Flow Rate 2.0 11/12/19 11/13/19 11/13/19 11/13/19 23:00 00:16 03:00 03:46 Temp 98.7 98.7 Pulse 116 123 Resp 24 26 B/P (MAP) 113/65 (81) 124/72 (89) Pulse Ox 100 100 99 100 O2 Delivery Room Air Nasal Cannula Nasal Cannula Nasal Cannula O2 Flow Rate 2.0 2.0 2.0 11/13/19 11/13/19 04:17 04:47 Resp 28 26 Pulse Ox 99 93 O2 Delivery Nasal Cannula Nasal Cannula O2 Flow Rate 2.0 Intake and Output 11/12/19 11/12/19 11/13/19 15:00 23:00 07:00 Intake Total 850 ml 2185 ml Output Total 860 ml 1460 ml 745 ml Balance -860 ml -610 ml 1440 ml Justicifation of Admission Dx: Justifications for Admission: Justification of Admission Dx: Yes CARIN FERNANDEZ MD Nov 13, 2019 07:46
[2019-11-13 08:01] LABS: BILIRUBIN,URINE NEGATIVE (NEG); CLARITY,URINE CLEAR; COLOR,URINE YELLOW; NITRITE,URINE NEGATIVE (NEG); PROTEIN,URINE 30 mg/dL (NEG-TRACE); UROBILINOGEN,URINE 0.2 mg/dL (0.2 mg/dL)
[2019-11-13] MEDS: PANTOPRAZOLE IV PUSH 40 MG VIAL. IVP SCH (08:04)
[2019-11-13] MEDS: MICAFUNGIN 100 MG in IV DEXTROSE 5% 100ML 100 ML IV SCH (08:05)
[2019-11-13 08:11] LABS: HYALINE CASTS, URINE MODERATE /HPF
[2019-11-13 08:13] LABS: BACTERIA,URINE MODERATE /HPF (0-FEW); RBC,URINE 0 /HPF (0-2); WBC,URINE 20-40 /HPF (0-4); YEAST,URINE PRESENT /HPF
[2019-11-13] MEDS: ACETYLCYSTEINE 20% for RESP TX 600 MG/3 ML. NEB SCH ×2 (08:26→20:11)
[2019-11-13] MEDS: TPN PER PHARMACY MC PRN (08:31)
--- NOTE | 2019-11-13 08:31 | NUR ---
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 No changes to TPN. BMP tomorrow. R: Continue TPN ABOVE. Will monitor electrolytes, glucose, and tolerance to TPN. CHRISTIAN VALLEJO [facility], 11/13/19 [id number]
[2019-11-13] MEDS: ENOXAPARIN 40 MG/0.4 ML SYRINGE. SQ SCH (08:49)
--- NOTE | 2019-11-13 09:38 | PDOC ---
PULMONARY PROGRESS NOTES Subjective Patient with no distress fever again Vitals Vital Signs Date Time Temp Pulse Resp B/P (MAP) Pulse Ox O2 Delivery O2 Flow Rate FiO2 11/13/19 08:28 96 Nasal Cannula 2.0 11/13/19 07:00 99.9 126 28 104/47 (66) 99.9 ROS: No Nausea, No Chest Pain, No Increase Cough General: Alert HEENT: Other (trach site ok) Lungs: Crackles Cardiovascular: S1, S2 Abdomen: Soft, Non-tender, Other (multiple KAYLIN drains ) Neuro Exam: Alert Extremities: Other (+1 BLE edema) Skin: Warm Labs Laboratory Tests Test 11/11/19 12:24 11/11/19 17:23 11/11/19 23:05 11/12/19 04:30 Glucose (Fingerstick) 156 mg/dL (70-99) 123 mg/dL (70-99) 138 mg/dL (70-99) Clostridium difficile Toxin (PCR) Negative (NEGATIVE) Test 11/12/19 04:45 11/12/19 05:48 11/12/19 11:36 11/12/19 17:48 Sodium Level 137 mmol/L (136-145) Potassium Level 4.3 mmol/L (3.5-5.1) Chloride Level 103 mmol/L (98-107) Carbon Dioxide Level 27 mmol/L (21-32) Anion Gap 7 (6-14) Blood Urea Nitrogen 15 mg/dL (-20) Creatinine 0.6 mg/dL (0.6-1.0) Estimated GFR (Cockcroft-Gault) 106.3 Glucose Level 140 mg/dL (70-99) Calcium Level 10.0 mg/dL (8.5-10.1) Phosphorus Level 4.2 mg/dL (2.6-4.7) Glucose (Fingerstick) 138 mg/dL (70-99) 145 mg/dL (70-99) 132 mg/dL (70-99) Test 11/12/19 23:49 11/13/19 05:55 11/13/19 06:00 11/13/19 07:45 Glucose (Fingerstick) 139 mg/dL (70-99) 120 mg/dL (70-99) White Blood Count 14.7 x10^3/uL (4.0-11.0) Red Blood Count 2.78 x10^6/uL (3.50-5.40) Hemoglobin 7.7 g/dL (12.0-15.5) Hematocrit 23.8 % (36.0-47.0) Mean Corpuscular Volume 86 fL (79-100) Mean Corpuscular Hemoglobin 28 pg (25-35) Mean Corpuscular Hemoglobin Concent 33 g/dL (31-37) Red Cell Distribution Width 16.0 % (11.5-14.5) Platelet Count 563 x10^3/uL (140-400) Neutrophils (%) (Auto) 83 % (31-73) Lymphocytes (%) (Auto) 8 % (24-48) Monocytes (%) (Auto) 7 % (0-9) Eosinophils (%) (Auto) 3 % (0-3) Basophils (%) (Auto) 0 % (0-3) Neutrophils # (Auto) 12.2 x10^3/uL (1.8-7.7) Lymphocytes # (Auto) 1.2 x10^3/uL (1.0-4.8) Monocytes # (Auto) 1.0 x10^3/uL (0.0-1.1) Eosinophils # (Auto) 0.4 x10^3/uL (0.0-0.7) Basophils # (Auto) 0.0 x10^3/uL (0.0-0.2) Sodium Level 138 mmol/L (136-145) Potassium Level 4.4 mmol/L (3.5-5.1) Chloride Level 106 mmol/L (98-107) Carbon Dioxide Level 29 mmol/L (21-32) Anion Gap 3 (6-14) Blood Urea Nitrogen 15 mg/dL (7-20) Creatinine 0.5 mg/dL (0.6-1.0) Estimated GFR (Cockcroft-Gault) 131.1 BUN/Creatinine Ratio 30 (6-20) Glucose Level 123 mg/dL (70-99) Calcium Level 10.3 mg/dL (8.5-10.1) Total Bilirubin 0.4 mg/dL (0.2-1.0) Aspartate Amino Transf (AST/SGOT) 14 U/L (15-37) Alanine Aminotransferase (ALT/SGPT) 12 U/L (14-59) Alkaline Phosphatase 119 U/L (46-116) Total Protein 5.9 g/dL (6.4-8.2) Albumin 1.1 g/dL (3.4-5.0) Albumin/Globulin Ratio 0.2 (1.0-1.7) Urine Collection Type Unknown Urine Color Yellow Urine Clarity Clear Urine pH 5.0 (<5.0-8.0) Urine Specific [place] 1.020 (1.000-1.030) Urine Protein 30 mg/dL (NEG-TRACE) Urine Glucose (UA) Negative mg/dL (NEG) Urine Ketones (Stick) Negative mg/dL (NEG) Urine Blood Negative (NEG) Urine Nitrite Negative (NEG) Urine Bilirubin Negative (NEG) Urine Urobilinogen Dipstick 0.2 mg/dL (0.2 mg/dL) Urine Leukocyte Esterase Small (NEG) Urine RBC 0 /HPF (0-2) Urine WBC 20-40 /HPF (0-4) Urine Bacteria Moderate /HPF (0-FEW) Urine Hyaline Casts Moderate /HPF Urine Mucus Marked /LPF Urine Yeast Present /HPF Laboratory Tests Test 11/12/19 11:36 11/12/19 17:48 11/12/19 23:49 11/13/19 05:55 Glucose (Fingerstick) 145 mg/dL (70-99) 132 mg/dL (70-99) 139 mg/dL (70-99) White Blood Count 14.7 x10^3/uL (4.0-11.0) Red Blood Count 2.78 x10^6/uL (3.50-5.40) Hemoglobin 7.7 g/dL (12.0-15.5) Hematocrit 23.8 % (36.0-47.0) Mean Corpuscular Volume 86 fL (79-100) Mean Corpuscular Hemoglobin 28 pg (25-35) Mean Corpuscular Hemoglobin Concent 33 g/dL (31-37) Red Cell Distribution Width 16.0 % (11.5-14.5) Platelet Count 563 x10^3/uL (140-400) Neutrophils (%) (Auto) 83 % (31-73) Lymphocytes (%) (Auto) 8 % (24-48) Monocytes (%) (Auto) 7 % (0-9) Eosinophils (%) (Auto) 3 % (0-3) Basophils (%) (Auto) 0 % (0-3) Neutrophils # (Auto) 12.2 x10^3/uL (1.8-7.7) Lymphocytes # (Auto) 1.2 x10^3/uL (1.0-4.8) Monocytes # (Auto) 1.0 x10^3/uL (0.0-1.1) Eosinophils # (Auto) 0.4 x10^3/uL (0.0-0.7) Basophils # (Auto) 0.0 x10^3/uL (0.0-0.2) Sodium Level 138 mmol/L (136-145) Potassium Level 4.4 mmol/L (3.5-5.1) Chloride Level 106 mmol/L (98-107) Carbon Dioxide Level 29 mmol/L (21-32) Anion Gap 3 (6-14) Blood Urea Nitrogen 15 mg/dL (7-20) Creatinine 0.5 mg/dL (0.6-1.0) Estimated GFR (Cockcroft-Gault) 131.1 BUN/Creatinine Ratio 30 (6-20) Glucose Level 123 mg/dL (70-99) Calcium Level 10.3 mg/dL (8.5-10.1) Total Bilirubin 0.4 mg/dL (0.2-1.0) Aspartate Amino Transf (AST/SGOT) 14 U/L (15-37) Alanine Aminotransferase (ALT/SGPT) 12 U/L (14-59) Alkaline Phosphatase 119 U/L (46-116) Total Protein 5.9 g/dL (6.4-8.2) Albumin 1.1 g/dL (3.4-5.0) Albumin/Globulin Ratio 0.2 (1.0-1.7) Test 11/13/19 06:00 11/13/19 07:45 Glucose (Fingerstick) 120 mg/dL (70-99) Urine Collection Type Unknown Urine Color Yellow Urine Clarity Clear Urine pH 5.0 (<5.0-8.0) Urine Specific [place] 1.020 (1.000-1.030) Urine Protein 30 mg/dL (NEG-TRACE) Urine Glucose (UA) Negative mg/dL (NEG) Urine Ketones (Stick) Negative mg/dL (NEG) Urine Blood Negative (NEG) Urine Nitrite Negative (NEG) Urine Bilirubin Negative (NEG) Urine Urobilinogen Dipstick 0.2 mg/dL (0.2 mg/dL) Urine Leukocyte Esterase Small (NEG) Urine RBC 0 /HPF (0-2) Urine WBC 20-40 /HPF (0-4) Urine Bacteria Moderate /HPF (0-FEW) Urine Hyaline Casts Moderate /HPF Urine Mucus Marked /LPF Urine Yeast Present /HPF Medications Active Scripts Medications Dose Route/Sig Max Daily Dose Days Date Category Bisoprolol Fumarate 5 Mg Tablet 10 Mg PO DAILY 07/04/[address] reviewed 10/30/19, Decreased left-sided effusion after catheter placement. The right-sided effusion has increased as has atelectasis. There has been exchange or placement of multiple drainage tubes and a gastrojejunostomy tube. Both collections are smaller. No significant new abdominal fluid collection is seen. The jejunal component of the gastrojejunostomy tube appears to be looped in the proximal small bowel. ct abdomen /pelvis 09/23 1. Removal of the percutaneous pigtail drainage catheters since the prior exam. Sequela of pancreatitis with extensive pseudocysts again demonstrated, the right-sided collections are slightly larger since the prior exam, the left-sided collections are stable. See above. 2. Moderate to large left pleural effusion with atelectasis and collapse of most of the left lower lobe, stable. Small right pleural effusion is stable. 3. Gallstone. ct chest 10/02 reviewed GRAM NEG COCCOBACILLI:MANY SQUAMOUS EPI CELL:RARE PMN (WBCs):FEW Unless otherwise specified, Testing Performed by: [address] [address] For Inquires, the Physician may contact the Microbiology department at [phone] RESPIRATORY CULTURE Final Final MANY GRAM NEGATIVE RODS on 10/03/19 at 9671 FINAL ID= [[email or web address] [email or web address]] MICRO CHARGES PSEUDOMONAS AERUGINOSA ANTIMICROBIAL SUSCEPTIBILITY Final Comment NEG ALEXANDRA 56 PSEUDOMONAS AERUGINOSA ANTIBIOTIC RESULT INTERPRETATION AMIKACIN <=16 S AZTREONAM <=4 S CEFTAZIDIME <=1 S CIPROFLOXACIN <=0.25 S CEFEPIME <=2 S CEFTAZIDIME/AVIBACTAM <=4 S GENTAMICIN <=2 S LEVOFLOXACIN <=0.5 S Impression . IMPRESSION: 1. Acute hypoxemic respiratory failure secondary to ARDS status post trach, developed anemia 09/24, blood drainage from RLQ abdomen drain site, and surrounding firmness / developed septic shock 09/24 from abdomen source, required levo 09/24 s/p 3 new drains 09/24 with brown color drainage, S/P Exp. 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 parapsilosis & PSAE (I-merrem/ceftazidime/AZT/cefepime)) Leucocytosis -trending upward Fever Acute gallstone pancreatitis with persistent necrosis - 07/27. CT A/P Increased ascites. 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 status post KAYLIN drain placement; C. parapsilosis. s/p drain 08/23 + yeast & high amylase; s/p additional drain on 08/25. Drains removed. -08/23. fluid devyn parapsilosis fluid, amylase high - 09/23 showed multiple pseudocysts, slight larger on the right. s/p drains x 3, 09/24. + PSAE (MDRO-R Cefepime, Zosyn ALEXANDRA < 64) and yeast, -09/24 s/p drain replacement x 3; fluid cult PSAE (MDRO), yeast; treated -10/29 CT A/P shows smaller fluid collections. -722 CT abdomen and pelvis drains in place Ascites s/p paracentesis 08/02 & 08/23. C. parapsilosis Cholelithiasis with thickening of the gallbladder wall. JUANA, Hyperkalemia, Metabolic acidosis off dialysis Acute hypoxic resp failure. trach/vent. sputum 09/30 + PSAE (I merrem) ; sputum culture November 05+ for PSAE R Merrem, sensitive to cefepime Pleural effusion status post CTS left side Abdominal fluid culture MDRO Pseudomonas, yeast Sputum culture positive 11/05 for MDRO Pseudomonas Chest tube fluid positive for 11/07 Devyn Parapsilosis S/P Exploratory laparotomy, lysis of adhesions, subtotal cholecystectomy with cholangiogram, gastrojejunostomy tube placement, pancreatic necrosectomy leukocytosis- improving 11/09 fluid from the chest tube GRAM STAIN Final Final NO ORGANISMS SEEN. SQUAMOUS EPI CELL:NOT APPLICABLE PMN (WBCs):RARE Unless otherwise specified, Testing Performed by: [address] [address] For Inquires, the Physician may contact the Microbiology department at [phone] ANAEROBIC-AEROBIC CULTURE Preliminary Preliminary No Growth on 11/09/19 at 0957 Unless otherwise specified, Testing Performed by: [facility] [address] [place] [address] For Inquires, the Physician may contact the Microbiology department at [phone] Antibiotics per ID, since 11/09 Restart Avycaz DC cefepime cont micafungin and dapto Plan . Fever/ per ID chest tube REMOVED 11/10 Transfuse as needed Antibiotics per ID Discussed with RN ASK SURGERY TO CONSIDER USING GUT FOR NUTRITION Monitor H&H Trach shield, as tolerated, on room air Up to chair, pt/ot Follow culture Follow surgery input DVT GI prophylaxis f/u BC /resp cultures DVT/GI PPX VINAYAK LANDRUM MD Nov 13, 2019 09:38
[2019-11-13] MEDS: DAPTOmycin (GENERIC) IVPB 500 MG in IV NORMAL SALINE 50ML 50 ML IV SCH (10:13)
--- NOTE | 2019-11-13 10:16 | PDOC ---
SURGICAL PROGRESS NOTE Subjective No acute changes Vital Signs Vital Signs Date Time Temp Pulse Resp B/P (MAP) Pulse Ox O2 Delivery O2 Flow Rate FiO2 11/13/19 08:28 96 Nasal Cannula 2.0 11/13/19 07:00 99.9 126 28 104/47 (66) 99.9 I&O Intake and Output 11/13/19 07:00 Intake Total 3035 ml Output Total 3065 ml Balance -30 ml IV Total 3035 ml Output Urine Total 1810 ml Gastric Drainage Total 450 ml Drainage Total 805 ml PATIENT HAS A ROSARIO: Yes General: Alert, mild distress Abdomen: Normal bowel sounds, Soft, Other (Wound VAC in place. Abdominal drain with fair amount of drainage around the drain tube) Labs Laboratory Tests Test 11/11/19 12:24 11/11/19 17:23 11/11/19 23:05 11/12/19 04:30 Glucose (Fingerstick) 156 mg/dL (70-99) 123 mg/dL (70-99) 138 mg/dL (70-99) Clostridium difficile Toxin (PCR) Negative (NEGATIVE) Test 11/12/19 04:45 11/12/19 05:48 11/12/19 11:36 11/12/19 17:48 Sodium Level 137 mmol/L (136-145) Potassium Level 4.3 mmol/L (3.5-5.1) Chloride Level 103 mmol/L (98-107) Carbon Dioxide Level 27 mmol/L (21-32) Anion Gap 7 (6-14) Blood Urea Nitrogen 15 mg/dL (7-20) Creatinine 0.6 mg/dL (0.6-1.0) Estimated GFR (Cockcroft-Gault) 106.3 Glucose Level 140 mg/dL (70-99) Calcium Level 10.0 mg/dL (8.5-10.1) Phosphorus Level 4.2 mg/dL (2.6-4.7) Glucose (Fingerstick) 138 mg/dL (70-99) 145 mg/dL (70-99) 132 mg/dL (70-99) Test 11/12/19 23:49 11/13/19 05:55 11/13/19 06:00 11/13/19 07:45 Glucose (Fingerstick) 139 mg/dL (70-99) 120 mg/dL (70-99) White Blood Count 14.7 x10^3/uL (4.0-11.0) Red Blood Count 2.78 x10^6/uL (3.50-5.40) Hemoglobin 7.7 g/dL (12.0-15.5) Hematocrit 23.8 % (36.0-47.0) Mean Corpuscular Volume 86 fL (79-100) Mean Corpuscular Hemoglobin 28 pg (25-35) Mean Corpuscular Hemoglobin Concent 33 g/dL (31-37) Red Cell Distribution Width 16.0 % (11.5-14.5) Platelet Count 563 x10^3/uL (140-400) Neutrophils (%) (Auto) 83 % (31-73) Lymphocytes (%) (Auto) 8 % (24-48) Monocytes (%) (Auto) 7 % (0-9) Eosinophils (%) (Auto) 3 % (0-3) Basophils (%) (Auto) 0 % (0-3) Neutrophils # (Auto) 12.2 x10^3/uL (1.8-7.7) Lymphocytes # (Auto) 1.2 x10^3/uL (1.0-4.8) Monocytes # (Auto) 1.0 x10^3/uL (0.0-1.1) Eosinophils # (Auto) 0.4 x10^3/uL (0.0-0.7) Basophils # (Auto) 0.0 x10^3/uL (0.0-0.2) Sodium Level 138 mmol/L (136-145) Potassium Level 4.4 mmol/L (3.5-5.1) Chloride Level 106 mmol/L (98-107) Carbon Dioxide Level 29 mmol/L (21-32) Anion Gap 3 (6-14) Blood Urea Nitrogen 15 mg/dL (7-20) Creatinine 0.5 mg/dL (0.6-1.0) Estimated GFR (Cockcroft-Gault) 131.1 BUN/Creatinine Ratio 30 (6-20) Glucose Level 123 mg/dL (70-99) Calcium Level 10.3 mg/dL (8.5-10.1) Total Bilirubin 0.4 mg/dL (0.2-1.0) Aspartate Amino Transf (AST/SGOT) 14 U/L (15-37) Alanine Aminotransferase (ALT/SGPT) 12 U/L (14-59) Alkaline Phosphatase 119 U/L (46-116) Total Protein 5.9 g/dL (6.4-8.2) Albumin 1.1 g/dL (3.4-5.0) Albumin/Globulin Ratio 0.2 (1.0-1.7) Urine Collection Type Unknown Urine Color Yellow Urine Clarity Clear Urine pH 5.0 (<5.0-8.0) Urine Specific [place] 1.020 (1.000-1.030) Urine Protein 30 mg/dL (NEG-TRACE) Urine Glucose (UA) Negative mg/dL (NEG) Urine Ketones (Stick) Negative mg/dL (NEG) Urine Blood Negative (NEG) Urine Nitrite Negative (NEG) Urine Bilirubin Negative (NEG) Urine Urobilinogen Dipstick 0.2 mg/dL (0.2 mg/dL) Urine Leukocyte Esterase Small (NEG) Urine RBC 0 /HPF (0-2) Urine WBC 20-40 /HPF (0-4) Urine Bacteria Moderate /HPF (0-FEW) Urine Hyaline Casts Moderate /HPF Urine Mucus Marked /LPF Urine Yeast Present /HPF Laboratory Tests Test 11/12/19 11:36 11/12/19 17:48 11/12/19 23:49 11/13/19 05:55 Glucose (Fingerstick) 145 mg/dL (70-99) 132 mg/dL (70-99) 139 mg/dL (70-99) White Blood Count 14.7 x10^3/uL (4.0-11.0) Red Blood Count 2.78 x10^6/uL (3.50-5.40) Hemoglobin 7.7 g/dL (12.0-15.5) Hematocrit 23.8 % (36.0-47.0) Mean Corpuscular Volume 86 fL (79-100) Mean Corpuscular Hemoglobin 28 pg (25-35) Mean Corpuscular Hemoglobin Concent 33 g/dL (31-37) Red Cell Distribution Width 16.0 % (11.5-14.5) Platelet Count 563 x10^3/uL (140-400) Neutrophils (%) (Auto) 83 % (31-73) Lymphocytes (%) (Auto) 8 % (24-48) Monocytes (%) (Auto) 7 % (0-9) Eosinophils (%) (Auto) 3 % (0-3) Basophils (%) (Auto) 0 % (0-3) Neutrophils # (Auto) 12.2 x10^3/uL (1.8-7.7) Lymphocytes # (Auto) 1.2 x10^3/uL (1.0-4.8) Monocytes # (Auto) 1.0 x10^3/uL (0.0-1.1) Eosinophils # (Auto) 0.4 x10^3/uL (0.0-0.7) Basophils # (Auto) 0.0 x10^3/uL (0.0-0.2) Sodium Level 138 mmol/L (136-145) Potassium Level 4.4 mmol/L (3.5-5.1) Chloride Level 106 mmol/L (98-107) Carbon Dioxide Level 29 mmol/L (21-32) Anion Gap 3 (6-14) Blood Urea Nitrogen 15 mg/dL (7-20) Creatinine 0.5 mg/dL (0.6-1.0) Estimated GFR (Cockcroft-Gault) 131.1 BUN/Creatinine Ratio 30 (6-20) Glucose Level 123 mg/dL (70-99) Calcium Level 10.3 mg/dL (8.5-10.1) Total Bilirubin 0.4 mg/dL (0.2-1.0) Aspartate Amino Transf (AST/SGOT) 14 U/L (15-37) Alanine Aminotransferase (ALT/SGPT) 12 U/L (14-59) Alkaline Phosphatase 119 U/L (46-116) Total Protein 5.9 g/dL (6.4-8.2) Albumin 1.1 g/dL (3.4-5.0) Albumin/Globulin Ratio 0.2 (1.0-1.7) Test 11/13/19 06:00 11/13/19 07:45 Glucose (Fingerstick) 120 mg/dL (70-99) Urine Collection Type Unknown Urine Color Yellow Urine Clarity Clear Urine pH 5.0 (<5.0-8.0) Urine Specific [place] 1.020 (1.000-1.030) Urine Protein 30 mg/dL (NEG-TRACE) Urine Glucose (UA) Negative mg/dL (NEG) Urine Ketones (Stick) Negative mg/dL (NEG) Urine Blood Negative (NEG) Urine Nitrite Negative (NEG) Urine Bilirubin Negative (NEG) Urine Urobilinogen Dipstick 0.2 mg/dL (0.2 mg/dL) Urine Leukocyte Esterase Small (NEG) Urine RBC 0 /HPF (0-2) Urine WBC 20-40 /HPF (0-4) Urine Bacteria Moderate /HPF (0-FEW) Urine Hyaline Casts Moderate /HPF Urine Mucus Marked /LPF Urine Yeast Present /HPF Problem List Problems Medical Problems: (1) Acute pancreatitis Status: Acute (2) Cholelithiasis Status: Acute Assessment/Plan Post pancreatic debridement Infectious disease would like PICC line removed will start PPN for 24 hours then replace PICC line other side Continue supportive care Justicifation of Admission Dx: Justifications for Admission: Justification of Admission Dx: Yes CARIN MALDONADO MD Nov 13, 2019 10:16
[2019-11-13 11:00] VITALS: BP 127/73
[2019-11-13] MEDS: IV NORMAL SALINE 1000ML BAG 1,000 ML IV SCH (14:33)
[2019-11-13 15:00] VITALS: BP 122/75
[2019-11-13] MEDS: AMINO AC 3%/ELECTROLYTE/GLYCER 1,000 ML IV SCH (16:27)
[2019-11-13 19:00] VITALS: BP 110/75
[2019-11-13] MEDS ORDERED: DEXTROSE 70% IV SCH ×11 (22:00)
[2019-11-13] MEDS ORDERED: AMINO ACID IV SCH ×11 (22:00)
[2019-11-13] MEDS ORDERED: TOTAL PARENTERAL NUTRITION IV SCH ×11 (22:00)
[2019-11-13] MEDS ORDERED: [UNRECOGNIZED DRUG - OTHER] IV SCH ×11 (22:00)
[2019-11-13 23:00] VITALS: BP 133/66
[2019-11-14] VITALS (7 sets, daily range): BP systolic 113–146; BP diastolic 62–87
[2019-11-14] MEDS: IPRATRPIUM/ALBUTEROL 0.5/2.5MG 3 ML NEBU. NEB SCH ×7 (00:19→23:55)
[2019-11-14] MEDS: ONDANSETRON PF 4 MG/2 ML VIAL. IV PRN (00:56)
[2019-11-14] MEDS: fentaNYL PF VIAL 100 MCG/2 ML VIAL IV PRN ×3 (03:27→18:16)
[2019-11-14 04:39] LABS: BASO # 0.1 x10^3/uL (0.0-0.2); BASO % 1 % (0-3); EOS # 0.3 x10^3/uL (0.0-0.7); EOS % 2 % (0-3); HEMATOCRIT 23.2 % (36.0-47.0); HEMOGLOBIN 7.7 g/dL (12.0-15.5); LYMPH # 1.4 x10^3/uL (1.0-4.8); LYMPH % 12 % (24-48); MEAN CORPUSCULAR HEMOGLOBIN 28 pg (25-35); MEAN CORPUSCULAR HGB CONC 33 g/dL (31-37); MEAN CORPUSCULAR VOLUME 85 fL (79-100); MONO # 0.9 x10^3/uL (0.0-1.1); MONO % 8 % (0-9); NEUT # 9.4 x10^3/uL (1.8-7.7); NEUT % 78 % (31-73); PLATELET COUNT 563 x10^3/uL (140-400); RED BLOOD COUNT 2.71 x10^6/uL (3.50-5.40); WHITE BLOOD COUNT 12.1 x10^3/uL (4.0-11.0)
[2019-11-14] MEDS: AMINO AC 3%/ELECTROLYTE/GLYCER 1,000 ML IV SCH ×2 (04:49→11:15)
[2019-11-14 05:05] LABS: ALBUMIN 1.1 g/dL (3.4-5.0); ALBUMIN/GLOBULIN RATIO 0.3 (1.0-1.7); CALCIUM 10.9 mg/dL (8.5-10.1); CREATININE 0.7 mg/dL (0.6-1.0); GFR 88.9; POTASSIUM 4.6 mmol/L (3.5-5.1); TOTAL BILIRUBIN 0.5 mg/dL (0.2-1.0); TOTAL PROTEIN 5.4 g/dL (6.4-8.2)
[2019-11-14] MEDS: CEFTAZIDIME/AVIBACTAM 2.5 GM in IV NORMAL SALINE 250ML 250 ML IV SCH ×3 (05:47→22:26)
[2019-11-14] MEDS: INSULIN LISPRO 300 UNITS/3 ML VIAL. SQ SCH ×4 (06:00→17:48)
--- NOTE | 2019-11-14 07:28 | PDOC ---
Infectious Disease Note Subjective Subjective Pt resting quietly States ok. No N/SOA. pain ok On 2 L O2 by nasal cannula TPN ROS ROS w neg Vital Sign Vital Signs Vital Signs Date Time Temp Pulse Resp B/P (MAP) Pulse Ox O2 Delivery O2 Flow Rate FiO2 11/14/19 04:48 98 Nasal Cannula 2.0 11/14/19 03:57 23 11/14/19 03:00 98.6 119 113/62 (79) 98.6 Physical Exam PHYSICAL EXAM GENERAL: pt in bed, appears weak -comfortable HEENT: Pupils equal, oral cavity dry. OC/Op - Dry NECK: Tracheostomy - no JVD LUNGS: Diminished aeration bases, CT on left HEART: S1, S2, ABDOMEN: Distended mild- bowel sounds hypoactive, soft, goyal x 2, KAYLIN drains, G-J tube : Lind in place EXTREMITIES: Trace generalized edema, no cyanosis. RADHA hose bilaterally, SKIN: warm touch. No signs of rash. LUE- PICC without signs of complications NEURO: - Alert and responsive Labs Lab Laboratory Tests Test 11/13/19 07:45 11/13/19 11:28 11/13/19 17:39 11/14/19 00:21 Urine Collection Type Unknown Urine Color Yellow Urine Clarity Clear Urine pH 5.0 (<5.0-8.0) Urine Specific [place] 1.020 (1.000-1.030) Urine Protein 30 mg/dL (NEG-TRACE) Urine Glucose (UA) Negative mg/dL (NEG) Urine Ketones (Stick) Negative mg/dL (NEG) Urine Blood Negative (NEG) Urine Nitrite Negative (NEG) Urine Bilirubin Negative (NEG) Urine Urobilinogen Dipstick 0.2 mg/dL (0.2 mg/dL) Urine Leukocyte Esterase Small (NEG) Urine RBC 0 /HPF (0-2) Urine WBC 20-40 /HPF (0-4) Urine Bacteria Moderate /HPF (0-FEW) Urine Hyaline Casts Moderate /HPF Urine Mucus Marked /LPF Urine Yeast Present /HPF Glucose (Fingerstick) 144 mg/dL (70-99) 117 mg/dL (70-99) 114 mg/dL (70-99) Test 11/14/19 04:10 11/14/19 04:15 11/14/19 06:10 White Blood Count 12.1 x10^3/uL (4.0-11.0) Red Blood Count 2.71 x10^6/uL (3.50-5.40) Hemoglobin 7.7 g/dL (12.0-15.5) Hematocrit 23.2 % (36.0-47.0) Mean Corpuscular Volume 85 fL (79-100) Mean Corpuscular Hemoglobin 28 pg (25-35) Mean Corpuscular Hemoglobin Concent 33 g/dL (31-37) Red Cell Distribution Width 16.0 % (11.5-14.5) Platelet Count 563 x10^3/uL (140-400) Neutrophils (%) (Auto) 78 % (31-73) Lymphocytes (%) (Auto) 12 % (24-48) Monocytes (%) (Auto) 8 % (0-9) Eosinophils (%) (Auto) 2 % (0-3) Basophils (%) (Auto) 1 % (0-3) Neutrophils # (Auto) 9.4 x10^3/uL (1.8-7.7) Lymphocytes # (Auto) 1.4 x10^3/uL (1.0-4.8) Monocytes # (Auto) 0.9 x10^3/uL (0.0-1.1) Eosinophils # (Auto) 0.3 x10^3/uL (0.0-0.7) Basophils # (Auto) 0.1 x10^3/uL (0.0-0.2) Sodium Level 135 mmol/L (136-145) Potassium Level 4.6 mmol/L (3.5-5.1) Chloride Level 103 mmol/L (98-107) Carbon Dioxide Level 25 mmol/L (21-32) Anion Gap 7 (6-14) Blood Urea Nitrogen 16 mg/dL (7-20) Creatinine 0.7 mg/dL (0.6-1.0) Estimated GFR (Cockcroft-Gault) 88.9 BUN/Creatinine Ratio 23 (6-20) Glucose Level 114 mg/dL (70-99) Calcium Level 10.9 mg/dL (8.5-10.1) Total Bilirubin 0.5 mg/dL (0.2-1.0) Aspartate Amino Transf (AST/SGOT) 18 U/L (15-37) Alanine Aminotransferase (ALT/SGPT) 13 U/L (14-59) Alkaline Phosphatase 123 U/L (46-116) Total Protein 5.4 g/dL (6.4-8.2) Albumin 1.1 g/dL (3.4-5.0) Albumin/Globulin Ratio 0.3 (1.0-1.7) Glucose (Fingerstick) 116 mg/dL (70-99) Micro 6/7 GRAM STAIN Final Final GRAM NEGATIVE RODS:MODERATE SQUAMOUS EPI CELL:NOT APPLICABLE PMN (WBCs):RARE YEAST:MODERATE Unless otherwise specified, Testing Performed by: [address] [address] For Inquires, the Physician may contact the Microbiology department at [phone] ANAEROBIC-AEROBIC CULTURE Preliminary Preliminary MANY GRAM NEGATIVE RODS on 09/27/19 at 1158 FINAL ID= [PSEUDOMONAS AERUGINOSA] PSEUDOMONAS AERUGINOSA ANTIMICROBIAL SUSCEPTIBILITY Preliminary Comment NEG ALEXANDRA 56 PSEUDOMONAS AERUGINOSA ANTIBIOTIC RESULT INTERPRETATION AMIKACIN <=16 S AZTREONAM >16 R CEFTAZIDIME >16 R CIPROFLOXACIN <=0.25 S CEFEPIME 16 I CEFTAZIDIME/AVIBACTAM <=4 S GENTAMICIN <=2 S CONTINUED ON NEXT PAGE RUN DATE: 09/29/19 [facility] LAB *LIVE* PAGE 2 RUN TIME: 1016 Specimen Inquiry SPEC: [id number] PATIENT: SCOTT CUELLAR [id number] (Continued) Procedure Result ----- ------- ANTIMICROBIAL SUSCEPTIBILITY Preliminary (continued) LEVOFLOXACIN <=0.5 S MEROPENEM <=1 S PIPERACILLIN/TAZOBACTAM 64 S TOBRAMYCIN <=2 S Unless otherwise specified, Testing Performed by: [address] [address] For Inquires, the Physician may contact the Microbiology department at [phone] CT Scan 09/23 IMPRESSION: 1. Removal of the percutaneous pigtail drainage catheters since the prior exam. Sequela of pancreatitis with extensive pseudocysts again demonstrated, the right-sided collections are slightly larger since the prior exam, the left-sided collections are stable. See above. 2. Moderate to large left pleural effusion with atelectasis and collapse of most of the left lower lobe, stable. Small right pleural effusion is stable. 3. Gallstone. Objective Assessment Assessment: Patient with prolonged hospitalization more than 4 months Multiple medical problems Multiple surgical procedures S/P Exp. 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 parapsilosis & PSAE (I-merrem/ceftazidime/AZT/cefepime)) Leucocytosis - better Fever - 11/11 c-diff neg Anemia Acute gallstone pancreatitis with persistent necrosis - 07/27. CT A/P Increased ascites. 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 status post KAYLIN drain placement; C. parapsilosis. s/p drain 08/23 + yeast & high amylase; s/p additional drain on 08/25. Drains removed. -08/23. fluid devyn parapsilosis fluid, amylase high - 09/23 showed multiple pseudocysts, slight larger on the right. s/p drains x 3, 09/24. + PSAE (MDRO-R Cefepime, Zosyn ALEXANDRA < 64) and yeast, -09/24 s/p drain replacement x 3; fluid cult PSAE (MDRO), yeast; treated -10/29 CT A/P shows smaller fluid collections. -722 CT abdomen and pelvis drains in place Ascites s/p paracentesis 08/02 & 08/23. C. parapsilosis Cholelithiasis with thickening of the gallbladder wall. JUANA, Hyperkalemia, Metabolic acidosis off dialysis Acute hypoxic resp failure. trach/vent. sputum 09/30 + PSAE (I merrem) ; sputum culture November 05+ for PSAE R Merrem, sensitive to cefepime Pleural effusion status post CTS left side Abdominal fluid culture MDRO Pseudomonas, yeast Sputum culture positive 11/05 for MDRO Pseudomonas Chest tube fluid positive for 11/07 Devyn Parapsilosis Plan Plan of Care Continue Avycaz 11/09 /micafungin 10/17 Restart daptomycin 11/12 Replace PICC if Blood cults neg 48 hours CK/CBC/CMP in am UA and urine culture Blood culture - pending DC PICC line 11/12 BC from neg to date C. difficile negative Monitor WBC/temp Wound care /drain management as directed Contact isolation for CRE/MDRO Critically ill halfway prognosis poor D/w nursing WILLY BARAKAT MD Nov 14, 2019 07:28
[2019-11-14] MEDS: ACETYLCYSTEINE 20% for RESP TX 600 MG/3 ML. NEB SCH ×2 (08:00→19:43)
--- NOTE | 2019-11-14 09:31 | PDOC ---
[employer] PROGRESS NOTE Chief Complaint Chief Complaint S/P Exp. 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 parapsilosis & PSAE (I-merrem/ceftazidime/AZT/cefepime)) Leucocytosis -trending upward Fever Acute gallstone pancreatitis with persistent necrosis Postop (Exploratory laparotomy, lysis of adhesions, subtotal cholecystectomy with cholangiogram, gastrojejunostomy tube placement, pancreatic necrosectomy) Acute hypoxic Respiratory failure required mechanical ventilation Tracheostomy bilateral pleural effusions/pulm edema s/p Throacentesis on 10/03/2019 Severe Acute gallstone pancreatitis (not a surgical candidate at this time) with necrosis Acute kidney failure now requiring dialysis Gallstones (Calculus of gallbladder with acute cholecystitis without obstru ction) HTN Intractable pain Intractable nausea Covid 19 negative. Acute on chronic anemia EEG: No seizure activity Fever - intermittent ? Ileus with vomiting Abd distention - U/S and CT reviewed s/p 0.4 L of opaque, debris-containing ascites was removed 08/23 Acute pancreatitis with persistent necrosis Gallstone pancreatitis with necrosis. -CT A/P 09/23 showed multiple pseudocysts, slight larger on the right. s/p drains x 3, 09/24. + PSAE (MDRO-R Cefepime, Zosyn ALEXANDRA < 64) and yeast, -s/p drain 08/14. C. parapsilosis. s/p drain 08/23 + yeast & high amylase; s/p additional drain on 08/25. Drains removed. Ascites s/p paracentesis 08/02 & 08/23. C. parapsilosis JUANA. off HD. A large fluid collection in the pancreatic bed has slightly decreased in size, described below, the pancreas itself is difficult to visualize, which could be due to necrosis or obscuration of pancreatic parenchyma from the surrounding fluid collection.10/02 - 08/14 status post KAYLIN drain placement + C paropsilosis. s/p additional drains 08/25 Anemia - S/p PRBCs. Cholelithiasis with thickening of the gallbladder wall. Leucocytosis improving JUANA, hyperkalemia, Metabolic acidosis off dialysis hypocalcemia Prediabetes HTN s/p trach Hyperglycemia severe protein-caloric malnutrition Moderate to large left pleural effusion with atelectasis and collapse of most of the left lower lobe, stable Extensive retroperitoneal fluid collections persist. Percutaneous drains remain within the collections in both paracolic gutters. These communicate with additi onal pelvic and peripancreatic collections. PLAN Continue Avycaz /micafungin, DC dapto per ID recommendations Negative C diff BC from 11/01 neg to date 11/12 PICC line removed will start PPN for 24 hours then replace PICC line other side Follow surgery input regarding diet and drains DVT GI prophylaxis f/u BC /resp cultures continue DVT/GI PPX Discussed with RN 40 MIN CC TIME History of Present Illness History of Present Illness 11/14/2019 Patient seen and examined in the ICU. Patient still requires extensive care. 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 Chart, labs, imaging was reviewed. @L UOP with + 500cc balance. 11/11 Patient seen in and examined in the ICU She is still extremely critically ill Appears weak, frail, and pale Better color today with improved eye contact and expression Discussed with RN Chart reviewed 11/08/2019 Patient seen and examined in the ICU She is still extremely critically ill Appears extremely weak frail and pale Discussed with RN Chart reviewed Vitals/I&O Vitals/I&O: Vital Signs Date Time Temp Pulse Resp B/P (MAP) Pulse Ox O2 Delivery O2 Flow Rate FiO2 11/14/19 08:00 96 Nasal Cannula 2.0 11/14/19 03:57 23 11/14/19 03:00 98.6 119 113/62 (79) 98.6 I & O 11/13/19 11/13/19 11/14/19 15:00 23:00 07:00 Intake Total 400 ml 991 ml 1287 ml Output Total 695 ml 400 ml 1070 ml Balance -295 ml 591 ml 217 ml Physical Exam Physical Exam: GENERAL: pt in bed, appears weak -comfortable HEENT: Pupils equal, oral cavity dry. OC/Op - Dry NECK: Tracheostomy - no JVD LUNGS: Diminished aeration bases, CT on left HEART: S1, S2, ABDOMEN: Distended mild- bowel sounds hypoactive, soft, goyal x 2, KAYLIN drains, G-J tube : Lind in place EXTREMITIES: Trace generalized edema, no cyanosis. RADHA hose bilaterally, SKIN: warm touch. No signs of rash. LUE- PICC without signs of complications NEURO: - Alert and responsive General: Alert, mild distress Heart: Other (distant heart sounds, tachycardic) Lungs: Crackles Abdomen: Normal bowel sounds, Soft, Other (Wound VAC in place. Abdominal drain with fair amount of drainage around the drain tube) Extremities: Other (Diffuse edema) Skin: No rashes, No significant lesion Labs Labs: Laboratory Tests Test 11/13/19 11:28 11/13/19 17:39 11/14/19 00:21 11/14/19 04:10 Glucose (Fingerstick) 144 mg/dL (70-99) 117 mg/dL (70-99) 114 mg/dL (70-99) White Blood Count 12.1 x10^3/uL (4.0-11.0) Red Blood Count 2.71 x10^6/uL (3.50-5.40) Hemoglobin 7.7 g/dL (12.0-15.5) Hematocrit 23.2 % (36.0-47.0) Mean Corpuscular Volume 85 fL (79-100) Mean Corpuscular Hemoglobin 28 pg (25-35) Mean Corpuscular Hemoglobin Concent 33 g/dL (31-37) Red Cell Distribution Width 16.0 % (11.5-14.5) Platelet Count 563 x10^3/uL (140-400) Neutrophils (%) (Auto) 78 % (31-73) Lymphocytes (%) (Auto) 12 % (24-48) Monocytes (%) (Auto) 8 % (0-9) Eosinophils (%) (Auto) 2 % (0-3) Basophils (%) (Auto) 1 % (0-3) Neutrophils # (Auto) 9.4 x10^3/uL (1.8-7.7) Lymphocytes # (Auto) 1.4 x10^3/uL (1.0-4.8) Monocytes # (Auto) 0.9 x10^3/uL (0.0-1.1) Eosinophils # (Auto) 0.3 x10^3/uL (0.0-0.7) Basophils # (Auto) 0.1 x10^3/uL (0.0-0.2) Test 11/14/19 04:15 7/27/20 06:10 Sodium Level 135 mmol/L (136-145) Potassium Level 4.6 mmol/L (3.5-5.1) Chloride Level 103 mmol/L (98-107) Carbon Dioxide Level 25 mmol/L (21-32) Anion Gap 7 (6-14) Blood Urea Nitrogen 16 mg/dL (7-20) Creatinine 0.7 mg/dL (0.6-1.0) Estimated GFR (Cockcroft-Gault) 88.9 BUN/Creatinine Ratio 23 (6-20) Glucose Level 114 mg/dL (70-99) Calcium Level 10.9 mg/dL (8.5-10.1) Total Bilirubin 0.5 mg/dL (0.2-1.0) Aspartate Amino Transf (AST/SGOT) 18 U/L (15-37) Alanine Aminotransferase (ALT/SGPT) 13 U/L (14-59) Alkaline Phosphatase 123 U/L (46-116) Total Protein 5.4 g/dL (6.4-8.2) Albumin 1.1 g/dL (3.4-5.0) Albumin/Globulin Ratio 0.3 (1.0-1.7) Glucose (Fingerstick) 116 mg/dL (70-99) Assessment and Plan Assessmemt and Plan Problems Medical Problems: (1) Acute pancreatitis Status: Acute (2) Cholelithiasis Status: Acute Comment Review of Relevant I have reviewed the following items kolby (where applicable) has been applied. Medications: Current Medications Medications (Trade) Dose Ordered Sig/Yvon Route PRN Reason Start Time Stop Time Status Last Admin Dose Admin Amino Acids/ Glycerin/ Electrolytes 1,000 ml @ 80 mls/hr [id number] IV 11/13/19 10:15 11/14/19 04:49 Justicifation of Admission Dx: Justifications for Admission: Justification of Admission Dx: Yes ADRIANNE SAM MD Nov 14, 2019 09:30
[2019-11-14] MEDS: ENOXAPARIN 40 MG/0.4 ML SYRINGE. SQ SCH (09:47)
[2019-11-14] MEDS: PANTOPRAZOLE IV PUSH 40 MG VIAL. IVP SCH (09:47)
[2019-11-14] MEDS: MICAFUNGIN 100 MG in IV DEXTROSE 5% 100ML 100 ML IV SCH (09:48)
[2019-11-14] MEDS: DAPTOmycin (GENERIC) IVPB 500 MG in IV NORMAL SALINE 50ML 50 ML IV SCH (09:48)
[2019-11-14] MEDS: PROCHLORPERAZINE 10 MG/2 ML VIAL. IV PRN (09:49)
--- NOTE | 2019-11-14 11:39 | PDOC ---
PULMONARY PROGRESS NOTES Subjective Patient with no distress on, canula Vitals Vital Signs Date Time Temp Pulse Resp B/P (MAP) Pulse Ox O2 Delivery O2 Flow Rate FiO2 11/14/19 11:00 130 49 98 Nasal Cannula 2.0 11/14/19 07:00 98.1 98.1 ROS: No Nausea, No Chest Pain, No Increase Cough General: Alert HEENT: Other (trach site ok) Lungs: Crackles Cardiovascular: S1, S2 Abdomen: Soft, Non-tender, Other (multiple KAYLIN drains ) Neuro Exam: Alert Extremities: Other (+1 BLE edema) Skin: Warm Labs Laboratory Tests Test 11/12/19 17:48 11/12/19 23:49 11/13/19 05:55 11/13/19 06:00 Glucose (Fingerstick) 132 mg/dL (70-99) 139 mg/dL (70-99) 120 mg/dL (70-99) White Blood Count 14.7 x10^3/uL (4.0-11.0) Red Blood Count 2.78 x10^6/uL (3.50-5.40) Hemoglobin 7.7 g/dL (12.0-15.5) Hematocrit 23.8 % (36.0-47.0) Mean Corpuscular Volume 86 fL (79-100) Mean Corpuscular Hemoglobin 28 pg (25-35) Mean Corpuscular Hemoglobin Concent 33 g/dL (31-37) Red Cell Distribution Width 16.0 % (11.5-14.5) Platelet Count 563 x10^3/uL (140-400) Neutrophils (%) (Auto) 83 % (31-73) Lymphocytes (%) (Auto) 8 % (24-48) Monocytes (%) (Auto) 7 % (0-9) Eosinophils (%) (Auto) 3 % (0-3) Basophils (%) (Auto) 0 % (0-3) Neutrophils # (Auto) 12.2 x10^3/uL (1.8-7.7) Lymphocytes # (Auto) 1.2 x10^3/uL (1.0-4.8) Monocytes # (Auto) 1.0 x10^3/uL (0.0-1.1) Eosinophils # (Auto) 0.4 x10^3/uL (0.0-0.7) Basophils # (Auto) 0.0 x10^3/uL (0.0-0.2) Sodium Level 138 mmol/L (136-145) Potassium Level 4.4 mmol/L (3.5-5.1) Chloride Level 106 mmol/L (98-107) Carbon Dioxide Level 29 mmol/L (21-32) Anion Gap 3 (6-14) Blood Urea Nitrogen 15 mg/dL (7-20) Creatinine 0.5 mg/dL (0.6-1.0) Estimated GFR (Cockcroft-Gault) 131.1 BUN/Creatinine Ratio 30 (6-20) Glucose Level 123 mg/dL (70-99) Calcium Level 10.3 mg/dL (8.5-10.1) Total Bilirubin 0.4 mg/dL (0.2-1.0) Aspartate Amino Transf (AST/SGOT) 14 U/L (15-37) Alanine Aminotransferase (ALT/SGPT) 12 U/L (14-59) Alkaline Phosphatase 119 U/L (46-116) Total Protein 5.9 g/dL (6.4-8.2) Albumin 1.1 g/dL (3.4-5.0) Albumin/Globulin Ratio 0.2 (1.0-1.7) Test 11/13/19 07:45 11/13/19 11:28 11/13/19 17:39 11/14/19 00:21 Urine Collection Type Unknown Urine Color Yellow Urine Clarity Clear Urine pH 5.0 (<5.0-8.0) Urine Specific [place] 1.020 (1.000-1.030) Urine Protein 30 mg/dL (NEG-TRACE) Urine Glucose (UA) Negative mg/dL (NEG) Urine Ketones (Stick) Negative mg/dL (NEG) Urine Blood Negative (NEG) Urine Nitrite Negative (NEG) Urine Bilirubin Negative (NEG) Urine Urobilinogen Dipstick 0.2 mg/dL (0.2 mg/dL) Urine Leukocyte Esterase Small (NEG) Urine RBC 0 /HPF (0-2) Urine WBC 20-40 /HPF (0-4) Urine Bacteria Moderate /HPF (0-FEW) Urine Hyaline Casts Moderate /HPF Urine Mucus Marked /LPF Urine Yeast Present /HPF Glucose (Fingerstick) 144 mg/dL (70-99) 117 mg/dL (70-99) 114 mg/dL (70-99) Test 11/14/19 04:10 11/14/19 04:15 11/14/19 06:10 White Blood Count 12.1 x10^3/uL (4.0-11.0) Red Blood Count 2.71 x10^6/uL (3.50-5.40) Hemoglobin 7.7 g/dL (12.0-15.5) Hematocrit 23.2 % (36.0-47.0) Mean Corpuscular Volume 85 fL (79-100) Mean Corpuscular Hemoglobin 28 pg (25-35) Mean Corpuscular Hemoglobin Concent 33 g/dL (31-37) Red Cell Distribution Width 16.0 % (11.5-14.5) Platelet Count 563 x10^3/uL (140-400) Neutrophils (%) (Auto) 78 % (31-73) Lymphocytes (%) (Auto) 12 % (24-48) Monocytes (%) (Auto) 8 % (0-9) Eosinophils (%) (Auto) 2 % (0-3) Basophils (%) (Auto) 1 % (0-3) Neutrophils # (Auto) 9.4 x10^3/uL (1.8-7.7) Lymphocytes # (Auto) 1.4 x10^3/uL (1.0-4.8) Monocytes # (Auto) 0.9 x10^3/uL (0.0-1.1) Eosinophils # (Auto) 0.3 x10^3/uL (0.0-0.7) Basophils # (Auto) 0.1 x10^3/uL (0.0-0.2) Sodium Level 135 mmol/L (136-145) Potassium Level 4.6 mmol/L (3.5-5.1) Chloride Level 103 mmol/L (98-107) Carbon Dioxide Level 25 mmol/L (21-32) Anion Gap 7 (6-14) Blood Urea Nitrogen 16 mg/dL (7-20) Creatinine 0.7 mg/dL (0.6-1.0) Estimated GFR (Cockcroft-Gault) 88.9 BUN/Creatinine Ratio 23 (6-20) Glucose Level 114 mg/dL (70-99) Calcium Level 10.9 mg/dL (8.5-10.1) Total Bilirubin 0.5 mg/dL (0.2-1.0) Aspartate Amino Transf (AST/SGOT) 18 U/L (15-37) Alanine Aminotransferase (ALT/SGPT) 13 U/L (14-59) Alkaline Phosphatase 123 U/L (46-116) Total Protein 5.4 g/dL (6.4-8.2) Albumin 1.1 g/dL (3.4-5.0) Albumin/Globulin Ratio 0.3 (1.0-1.7) Glucose (Fingerstick) 116 mg/dL (70-99) Laboratory Tests Test 11/13/19 17:39 11/14/19 00:21 11/14/19 04:10 11/14/19 04:15 Glucose (Fingerstick) 117 mg/dL (70-99) 114 mg/dL (70-99) White Blood Count 12.1 x10^3/uL (4.0-11.0) Red Blood Count 2.71 x10^6/uL (3.50-5.40) Hemoglobin 7.7 g/dL (12.0-15.5) Hematocrit 23.2 % (36.0-47.0) Mean Corpuscular Volume 85 fL (79-100) Mean Corpuscular Hemoglobin 28 pg (25-35) Mean Corpuscular Hemoglobin Concent 33 g/dL (31-37) Red Cell Distribution Width 16.0 % (11.5-14.5) Platelet Count 563 x10^3/uL (140-400) Neutrophils (%) (Auto) 78 % (31-73) Lymphocytes (%) (Auto) 12 % (24-48) Monocytes (%) (Auto) 8 % (0-9) Eosinophils (%) (Auto) 2 % (0-3) Basophils (%) (Auto) 1 % (0-3) Neutrophils # (Auto) 9.4 x10^3/uL (1.8-7.7) Lymphocytes # (Auto) 1.4 x10^3/uL (1.0-4.8) Monocytes # (Auto) 0.9 x10^3/uL (0.0-1.1) Eosinophils # (Auto) 0.3 x10^3/uL (0.0-0.7) Basophils # (Auto) 0.1 x10^3/uL (0.0-0.2) Sodium Level 135 mmol/L (136-145) Potassium Level 4.6 mmol/L (3.5-5.1) Chloride Level 103 mmol/L (98-107) Carbon Dioxide Level 25 mmol/L (21-32) Anion Gap 7 (6-14) Blood Urea Nitrogen 16 mg/dL (7-20) Creatinine 0.7 mg/dL (0.6-1.0) Estimated GFR (Cockcroft-Gault) 88.9 BUN/Creatinine Ratio 23 (6-20) Glucose Level 114 mg/dL (70-99) Calcium Level 10.9 mg/dL (8.5-10.1) Total Bilirubin 0.5 mg/dL (0.2-1.0) Aspartate Amino Transf (AST/SGOT) 18 U/L (15-37) Alanine Aminotransferase (ALT/SGPT) 13 U/L (14-59) Alkaline Phosphatase 123 U/L (46-116) Total Protein 5.4 g/dL (6.4-8.2) Albumin 1.1 g/dL (3.4-5.0) Albumin/Globulin Ratio 0.3 (1.0-1.7) Test 11/14/19 06:10 Glucose (Fingerstick) 116 mg/dL (70-99) Medications Active Scripts Medications Dose Route/Sig Max Daily Dose Days Date Category Bisoprolol Fumarate 5 Mg Tablet 10 Mg PO DAILY 07/04/[address] reviewed 10/30/19, Decreased left-sided effusion after catheter placement. The right-sided effusion has increased as has atelectasis. There has been exchange or placement of multiple drainage tubes and a gastrojejunostomy tube. Both collections are smaller. No significant new abdominal fluid collection is seen. The jejunal component of the gastrojejunostomy tube appears to be looped in the proximal small bowel. ct abdomen /pelvis 09/23 1. Removal of the percutaneous pigtail drainage catheters since the prior exam. Sequela of pancreatitis with extensive pseudocysts again demonstrated, the right-sided collections are slightly larger since the prior exam, the left-sided collections are stable. See above. 2. Moderate to large left pleural effusion with atelectasis and collapse of most of the left lower lobe, stable. Small right pleural effusion is stable. 3. Gallstone. ct chest 10/02 reviewed GRAM NEG COCCOBACILLI:MANY SQUAMOUS EPI CELL:RARE PMN (WBCs):FEW Unless otherwise specified, Testing Performed by: [address] [address] For Inquires, the Physician may contact the Microbiology department at [phone] RESPIRATORY CULTURE Final Final MANY GRAM NEGATIVE RODS on 10/03/19 at 1107 FINAL ID= [PSEUDOMONAS AERUGINOSA] MICRO CHARGES PSEUDOMONAS AERUGINOSA ANTIMICROBIAL SUSCEPTIBILITY Final Comment NEG ALEXANDRA 56 PSEUDOMONAS AERUGINOSA ANTIBIOTIC RESULT INTERPRETATION AMIKACIN <=16 S AZTREONAM <=4 S CEFTAZIDIME <=1 S CIPROFLOXACIN <=0.25 S CEFEPIME <=2 S CEFTAZIDIME/AVIBACTAM <=4 S GENTAMICIN <=2 S LEVOFLOXACIN <=0.5 S Impression . IMPRESSION: 1. Acute hypoxemic respiratory failure secondary to ARDS status post trach, developed anemia 09/24, blood drainage from RLQ abdomen drain site, and surrounding firmness / developed septic shock 09/24 from abdomen source, required levo / s/p 3 new drains 09/24 with brown color drainage, S/P Exp. 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 parapsilosis & PSAE (I-merrem/ceftazidime/AZT/cefepime)) Leucocytosis -trending upward Fever Acute gallstone pancreatitis with persistent necrosis - 07/27. CT A/P Increased ascites. 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 status post KAYLIN drain placement; C. parapsilosis. s/p drain 08/23 + yeast & high amylase; s/p additional drain on 08/25. Drains removed. -08/23. fluid devyn parapsilosis fluid, amylase high - 09/23 showed multiple pseudocysts, slight larger on the right. s/p drains x 3, 09/24. + PSAE (MDRO-R Cefepime, Zosyn ALEXANDRA < 64) and yeast, -09/24 s/p drain replacement x 3; fluid cult PSAE (MDRO), yeast; treated -10/29 CT A/P shows smaller fluid collections. -722 CT abdomen and pelvis drains in place Ascites s/p paracentesis 08/02 & 08/23. C. parapsilosis Cholelithiasis with thickening of the gallbladder wall. JUANA, Hyperkalemia, Metabolic acidosis off dialysis Acute hypoxic resp failure. trach/vent. sputum 09/30 + PSAE (I merrem) ; sputum culture November 05+ for PSAE R Merrem, sensitive to cefepime Pleural effusion status post CTS left side Abdominal fluid culture MDRO Pseudomonas, yeast Sputum culture positive 11/05 for MDRO Pseudomonas Chest tube fluid positive for 11/07 Devyn Parapsilosis S/P Exploratory laparotomy, lysis of adhesions, subtotal cholecystectomy with cholangiogram, gastrojejunostomy tube placement, pancreatic necrosectomy leukocytosis- improving 11/09 fluid from the chest tube GRAM STAIN Final Final NO ORGANISMS SEEN. SQUAMOUS EPI CELL:NOT APPLICABLE PMN (WBCs):RARE Unless otherwise specified, Testing Performed by: [address] [id number] For Inquires, the Physician may contact the Microbiology department at [phone] ANAEROBIC-AEROBIC CULTURE Preliminary Preliminary No Growth on 11/09/19 at 0957 Unless otherwise specified, Testing Performed by: [address] [address] For Inquires, the Physician may contact the Microbiology department at [phone] Antibiotics per ID, since 11/09 Restart Avycaz DC cefepime cont micafungin and dapto Plan . Fever/ per ID chest tube REMOVED 11/10 Transfuse as needed Antibiotics per ID Discussed with RN ASK SURGERY TO CONSIDER USING GUT FOR NUTRITION Monitor H&H Trach shield, as tolerated, on room air Up to chair, pt/ot Follow culture Follow surgery input DVT GI prophylaxis f/u BC /resp cultures stable pulmonary mcmillan. will see PRN DVT/GI PPX VINAYAK LANDRUM MD Nov 14, 2019 11:39
--- NOTE | 2019-11-14 12:28 | PDOC ---
SURGICAL PROGRESS NOTE Subjective up in chair Vital Signs Vital Signs Date Time Temp Pulse Resp B/P (MAP) Pulse Ox O2 Delivery O2 Flow Rate FiO2 11/14/19 12:09 95 Nasal Cannula 2.0 11/14/19 11:39 30 11/14/19 11:00 130 11/14/19 07:00 98.1 98.1 I&O Intake and Output 11/14/19 07:00 Intake Total 2678 ml Output Total 2165 ml Balance 513 ml IV Total 2678 ml Output Urine Total 1145 ml Drainage Total 1020 ml # Bowel Movements 1 General: Cooperative, No acute distress Abdomen: Soft, Other (drains in place) Labs Laboratory Tests Test 11/12/19 17:48 11/12/19 23:49 11/13/19 05:55 11/13/19 06:00 Glucose (Fingerstick) 132 mg/dL (70-99) 139 mg/dL (70-99) 120 mg/dL (70-99) White Blood Count 14.7 x10^3/uL (4.0-11.0) Red Blood Count 2.78 x10^6/uL (3.50-5.40) Hemoglobin 7.7 g/dL (12.0-15.5) Hematocrit 23.8 % (36.0-47.0) Mean Corpuscular Volume 86 fL (79-100) Mean Corpuscular Hemoglobin 28 pg (25-35) Mean Corpuscular Hemoglobin Concent 33 g/dL (31-37) Red Cell Distribution Width 16.0 % (11.5-14.5) Platelet Count 563 x10^3/uL (140-400) Neutrophils (%) (Auto) 83 % (31-73) Lymphocytes (%) (Auto) 8 % (24-48) Monocytes (%) (Auto) 7 % (0-9) Eosinophils (%) (Auto) 3 % (0-3) Basophils (%) (Auto) 0 % (0-3) Neutrophils # (Auto) 12.2 x10^3/uL (1.8-7.7) Lymphocytes # (Auto) 1.2 x10^3/uL (1.0-4.8) Monocytes # (Auto) 1.0 x10^3/uL (0.0-1.1) Eosinophils # (Auto) 0.4 x10^3/uL (0.0-0.7) Basophils # (Auto) 0.0 x10^3/uL (0.0-0.2) Sodium Level 138 mmol/L (136-145) Potassium Level 4.4 mmol/L (3.5-5.1) Chloride Level 106 mmol/L (98-107) Carbon Dioxide Level 29 mmol/L (21-32) Anion Gap 3 (6-14) Blood Urea Nitrogen 15 mg/dL (7-20) Creatinine 0.5 mg/dL (0.6-1.0) Estimated GFR (Cockcroft-Gault) 131.1 BUN/Creatinine Ratio 30 (6-20) Glucose Level 123 mg/dL (70-99) Calcium Level 10.3 mg/dL (8.5-10.1) Total Bilirubin 0.4 mg/dL (0.2-1.0) Aspartate Amino Transf (AST/SGOT) 14 U/L (15-37) Alanine Aminotransferase (ALT/SGPT) 12 U/L (14-59) Alkaline Phosphatase 119 U/L (46-116) Total Protein 5.9 g/dL (6.4-8.2) Albumin 1.1 g/dL (3.4-5.0) Albumin/Globulin Ratio 0.2 (1.0-1.7) Test 11/13/19 07:45 11/13/19 11:28 11/13/19 17:39 11/14/19 00:21 Urine Collection Type Unknown Urine Color Yellow Urine Clarity Clear Urine pH 5.0 (<5.0-8.0) Urine Specific [place] 1.020 (1.000-1.030) Urine Protein 30 mg/dL (NEG-TRACE) Urine Glucose (UA) Negative mg/dL (NEG) Urine Ketones (Stick) Negative mg/dL (NEG) Urine Blood Negative (NEG) Urine Nitrite Negative (NEG) Urine Bilirubin Negative (NEG) Urine Urobilinogen Dipstick 0.2 mg/dL (0.2 mg/dL) Urine Leukocyte Esterase Small (NEG) Urine RBC 0 /HPF (0-2) Urine WBC 20-40 /HPF (0-4) Urine Bacteria Moderate /HPF (0-FEW) Urine Hyaline Casts Moderate /HPF Urine Mucus Marked /LPF Urine Yeast Present /HPF Glucose (Fingerstick) 144 mg/dL (70-99) 117 mg/dL (70-99) 114 mg/dL (70-99) Test 11/14/19 04:10 11/14/19 04:15 11/14/19 06:10 White Blood Count 12.1 x10^3/uL (4.0-11.0) Red Blood Count 2.71 x10^6/uL (3.50-5.40) Hemoglobin 7.7 g/dL (12.0-15.5) Hematocrit 23.2 % (36.0-47.0) Mean Corpuscular Volume 85 fL (79-100) Mean Corpuscular Hemoglobin 28 pg (25-35) Mean Corpuscular Hemoglobin Concent 33 g/dL (31-37) Red Cell Distribution Width 16.0 % (11.5-14.5) Platelet Count 563 x10^3/uL (140-400) Neutrophils (%) (Auto) 78 % (31-73) Lymphocytes (%) (Auto) 12 % (24-48) Monocytes (%) (Auto) 8 % (0-9) Eosinophils (%) (Auto) 2 % (0-3) Basophils (%) (Auto) 1 % (0-3) Neutrophils # (Auto) 9.4 x10^3/uL (1.8-7.7) Lymphocytes # (Auto) 1.4 x10^3/uL (1.0-4.8) Monocytes # (Auto) 0.9 x10^3/uL (0.0-1.1) Eosinophils # (Auto) 0.3 x10^3/uL (0.0-0.7) Basophils # (Auto) 0.1 x10^3/uL (0.0-0.2) Sodium Level 135 mmol/L (136-145) Potassium Level 4.6 mmol/L (3.5-5.1) Chloride Level 103 mmol/L (98-107) Carbon Dioxide Level 25 mmol/L (21-32) Anion Gap 7 (6-14) Blood Urea Nitrogen 16 mg/dL (7-20) Creatinine 0.7 mg/dL (0.6-1.0) Estimated GFR (Cockcroft-Gault) 88.9 BUN/Creatinine Ratio 23 (6-20) Glucose Level 114 mg/dL (70-99) Calcium Level 10.9 mg/dL (8.5-10.1) Total Bilirubin 0.5 mg/dL (0.2-1.0) Aspartate Amino Transf (AST/SGOT) 18 U/L (15-37) Alanine Aminotransferase (ALT/SGPT) 13 U/L (14-59) Alkaline Phosphatase 123 U/L (46-116) Total Protein 5.4 g/dL (6.4-8.2) Albumin 1.1 g/dL (3.4-5.0) Albumin/Globulin Ratio 0.3 (1.0-1.7) Glucose (Fingerstick) 116 mg/dL (70-99) Laboratory Tests Test 11/13/19 17:39 11/14/19 00:21 11/14/19 04:10 11/14/19 04:15 Glucose (Fingerstick) 117 mg/dL (70-99) 114 mg/dL (70-99) White Blood Count 12.1 x10^3/uL (4.0-11.0) Red Blood Count 2.71 x10^6/uL (3.50-5.40) Hemoglobin 7.7 g/dL (12.0-15.5) Hematocrit 23.2 % (36.0-47.0) Mean Corpuscular Volume 85 fL (79-100) Mean Corpuscular Hemoglobin 28 pg (25-35) Mean Corpuscular Hemoglobin Concent 33 g/dL (31-37) Red Cell Distribution Width 16.0 % (11.5-14.5) Platelet Count 563 x10^3/uL (140-400) Neutrophils (%) (Auto) 78 % (31-73) Lymphocytes (%) (Auto) 12 % (24-48) Monocytes (%) (Auto) 8 % (0-9) Eosinophils (%) (Auto) 2 % (0-3) Basophils (%) (Auto) 1 % (0-3) Neutrophils # (Auto) 9.4 x10^3/uL (1.8-7.7) Lymphocytes # (Auto) 1.4 x10^3/uL (1.0-4.8) Monocytes # (Auto) 0.9 x10^3/uL (0.0-1.1) Eosinophils # (Auto) 0.3 x10^3/uL (0.0-0.7) Basophils # (Auto) 0.1 x10^3/uL (0.0-0.2) Sodium Level 135 mmol/L (136-145) Potassium Level 4.6 mmol/L (3.5-5.1) Chloride Level 103 mmol/L (98-107) Carbon Dioxide Level 25 mmol/L (21-32) Anion Gap 7 (6-14) Blood Urea Nitrogen 16 mg/dL (7-20) Creatinine 0.7 mg/dL (0.6-1.0) Estimated GFR (Cockcroft-Gault) 88.9 BUN/Creatinine Ratio 23 (6-20) Glucose Level 114 mg/dL (70-99) Calcium Level 10.9 mg/dL (8.5-10.1) Total Bilirubin 0.5 mg/dL (0.2-1.0) Aspartate Amino Transf (AST/SGOT) 18 U/L (15-37) Alanine Aminotransferase (ALT/SGPT) 13 U/L (14-59) Alkaline Phosphatase 123 U/L (46-116) Total Protein 5.4 g/dL (6.4-8.2) Albumin 1.1 g/dL (3.4-5.0) Albumin/Globulin Ratio 0.3 (1.0-1.7) Test 11/14/19 06:10 Glucose (Fingerstick) 116 mg/dL (70-99) Problem List Problems Medical Problems: (1) Acute pancreatitis Status: Acute (2) Cholelithiasis Status: Acute Assessment/Plan supportive measures Justicifation of Admission Dx: Justifications for Admission: Justification of Admission Dx: Yes 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 RET[employer] CON[employer] Nov 14, 2019 12:28
--- NOTE | 2019-11-14 13:52 | PDOC ---
G I PROGRESS NOTE Subjective In chair. Waves. Looks frail. Physical Exam On trach tube. Multiple drains. Review of Relevant I have reviewed the following items kolby (where applicable) has been applied. Labs Laboratory Tests Test 11/12/19 17:48 11/12/19 23:49 11/13/19 05:55 11/13/19 06:00 Glucose (Fingerstick) 132 mg/dL (70-99) 139 mg/dL (70-99) 120 mg/dL (70-99) White Blood Count 14.7 x10^3/uL (4.0-11.0) Red Blood Count 2.78 x10^6/uL (3.50-5.40) Hemoglobin 7.7 g/dL (12.0-15.5) Hematocrit 23.8 % (36.0-47.0) Mean Corpuscular Volume 86 fL (79-100) Mean Corpuscular Hemoglobin 28 pg (25-35) Mean Corpuscular Hemoglobin Concent 33 g/dL (31-37) Red Cell Distribution Width 16.0 % (11.5-14.5) Platelet Count 563 x10^3/uL (140-400) Neutrophils (%) (Auto) 83 % (31-73) Lymphocytes (%) (Auto) 8 % (24-48) Monocytes (%) (Auto) 7 % (0-9) Eosinophils (%) (Auto) 3 % (0-3) Basophils (%) (Auto) 0 % (0-3) Neutrophils # (Auto) 12.2 x10^3/uL (1.8-7.7) Lymphocytes # (Auto) 1.2 x10^3/uL (1.0-4.8) Monocytes # (Auto) 1.0 x10^3/uL (0.0-1.1) Eosinophils # (Auto) 0.4 x10^3/uL (0.0-0.7) Basophils # (Auto) 0.0 x10^3/uL (0.0-0.2) Sodium Level 138 mmol/L (136-145) Potassium Level 4.4 mmol/L (3.5-5.1) Chloride Level 106 mmol/L (98-107) Carbon Dioxide Level 29 mmol/L (21-32) Anion Gap 3 (6-14) Blood Urea Nitrogen 15 mg/dL (7-20) Creatinine 0.5 mg/dL (0.6-1.0) Estimated GFR (Cockcroft-Gault) 131.1 BUN/Creatinine Ratio 30 (6-20) Glucose Level 123 mg/dL (70-99) Calcium Level 10.3 mg/dL (8.5-10.1) Total Bilirubin 0.4 mg/dL (0.2-1.0) Aspartate Amino Transf (AST/SGOT) 14 U/L (15-37) Alanine Aminotransferase (ALT/SGPT) 12 U/L (14-59) Alkaline Phosphatase 119 U/L (46-116) Total Protein 5.9 g/dL (6.4-8.2) Albumin 1.1 g/dL (3.4-5.0) Albumin/Globulin Ratio 0.2 (1.0-1.7) Test 11/13/19 07:45 11/13/19 11:28 11/13/19 17:39 11/14/19 00:21 Urine Collection Type Unknown Urine Color Yellow Urine Clarity Clear Urine pH 5.0 (<5.0-8.0) Urine Specific [place] 1.020 (1.000-1.030) Urine Protein 30 mg/dL (NEG-TRACE) Urine Glucose (UA) Negative mg/dL (NEG) Urine Ketones (Stick) Negative mg/dL (NEG) Urine Blood Negative (NEG) Urine Nitrite Negative (NEG) Urine Bilirubin Negative (NEG) Urine Urobilinogen Dipstick 0.2 mg/dL (0.2 mg/dL) Urine Leukocyte Esterase Small (NEG) Urine RBC 0 /HPF (0-2) Urine WBC 20-40 /HPF (0-4) Urine Bacteria Moderate /HPF (0-FEW) Urine Hyaline Casts Moderate /HPF Urine Mucus Marked /LPF Urine Yeast Present /HPF Glucose (Fingerstick) 144 mg/dL (70-99) 117 mg/dL (70-99) 114 mg/dL (70-99) Test 11/14/19 04:10 11/14/19 04:15 11/14/19 06:10 11/14/19 12:46 White Blood Count 12.1 x10^3/uL (4.0-11.0) Red Blood Count 2.71 x10^6/uL (3.50-5.40) Hemoglobin 7.7 g/dL (12.0-15.5) Hematocrit 23.2 % (36.0-47.0) Mean Corpuscular Volume 85 fL (79-100) Mean Corpuscular Hemoglobin 28 pg (25-35) Mean Corpuscular Hemoglobin Concent 33 g/dL (31-37) Red Cell Distribution Width 16.0 % (11.5-14.5) Platelet Count 563 x10^3/uL (140-400) Neutrophils (%) (Auto) 78 % (31-73) Lymphocytes (%) (Auto) 12 % (24-48) Monocytes (%) (Auto) 8 % (0-9) Eosinophils (%) (Auto) 2 % (0-3) Basophils (%) (Auto) 1 % (0-3) Neutrophils # (Auto) 9.4 x10^3/uL (1.8-7.7) Lymphocytes # (Auto) 1.4 x10^3/uL (1.0-4.8) Monocytes # (Auto) 0.9 x10^3/uL (0.0-1.1) Eosinophils # (Auto) 0.3 x10^3/uL (0.0-0.7) Basophils # (Auto) 0.1 x10^3/uL (0.0-0.2) Sodium Level 135 mmol/L (136-145) Potassium Level 4.6 mmol/L (3.5-5.1) Chloride Level 103 mmol/L (98-107) Carbon Dioxide Level 25 mmol/L (21-32) Anion Gap 7 (6-14) Blood Urea Nitrogen 16 mg/dL (7-20) Creatinine 0.7 mg/dL (0.6-1.0) Estimated GFR (Cockcroft-Gault) 88.9 BUN/Creatinine Ratio 23 (6-20) Glucose Level 114 mg/dL (70-99) Calcium Level 10.9 mg/dL (8.5-10.1) Total Bilirubin 0.5 mg/dL (0.2-1.0) Aspartate Amino Transf (AST/SGOT) 18 U/L (15-37) Alanine Aminotransferase (ALT/SGPT) 13 U/L (14-59) Alkaline Phosphatase 123 U/L (46-116) Total Protein 5.4 g/dL (6.4-8.2) Albumin 1.1 g/dL (3.4-5.0) Albumin/Globulin Ratio 0.3 (1.0-1.7) Glucose (Fingerstick) 116 mg/dL (70-99) 141 mg/dL (70-99) Laboratory Tests Test 11/13/19 17:39 11/14/19 00:21 11/14/19 04:10 11/14/19 04:15 Glucose (Fingerstick) 117 mg/dL (70-99) 114 mg/dL (70-99) White Blood Count 12.1 x10^3/uL (4.0-11.0) Red Blood Count 2.71 x10^6/uL (3.50-5.40) Hemoglobin 7.7 g/dL (12.0-15.5) Hematocrit 23.2 % (36.0-47.0) Mean Corpuscular Volume 85 fL (79-100) Mean Corpuscular Hemoglobin 28 pg (25-35) Mean Corpuscular Hemoglobin Concent 33 g/dL (31-37) Red Cell Distribution Width 16.0 % (11.5-14.5) Platelet Count 563 x10^3/uL (140-400) Neutrophils (%) (Auto) 78 % (31-73) Lymphocytes (%) (Auto) 12 % (24-48) Monocytes (%) (Auto) 8 % (0-9) Eosinophils (%) (Auto) 2 % (0-3) Basophils (%) (Auto) 1 % (0-3) Neutrophils # (Auto) 9.4 x10^3/uL (1.8-7.7) Lymphocytes # (Auto) 1.4 x10^3/uL (1.0-4.8) Monocytes # (Auto) 0.9 x10^3/uL (0.0-1.1) Eosinophils # (Auto) 0.3 x10^3/uL (0.0-0.7) Basophils # (Auto) 0.1 x10^3/uL (0.0-0.2) Sodium Level 135 mmol/L (136-145) Potassium Level 4.6 mmol/L (3.5-5.1) Chloride Level 103 mmol/L (98-107) Carbon Dioxide Level 25 mmol/L (21-32) Anion Gap 7 (6-14) Blood Urea Nitrogen 16 mg/dL (7-20) Creatinine 0.7 mg/dL (0.6-1.0) Estimated GFR (Cockcroft-Gault) 88.9 BUN/Creatinine Ratio 23 (6-20) Glucose Level 114 mg/dL (70-99) Calcium Level 10.9 mg/dL (8.5-10.1) Total Bilirubin 0.5 mg/dL (0.2-1.0) Aspartate Amino Transf (AST/SGOT) 18 U/L (15-37) Alanine Aminotransferase (ALT/SGPT) 13 U/L (14-59) Alkaline Phosphatase 123 U/L (46-116) Total Protein 5.4 g/dL (6.4-8.2) Albumin 1.1 g/dL (3.4-5.0) Albumin/Globulin Ratio 0.3 (1.0-1.7) Test 11/14/19 06:10 11/14/19 12:46 Glucose (Fingerstick) 116 mg/dL (70-99) 141 mg/dL (70-99) Microbiology 11/13/19 Gram Stain - Final, Resulted 11/13/19 Aerobic Culture, Resulted Pending 11/13/19 Blood Culture - Preliminary, Resulted NO GROWTH AFTER 1 DAY 11/08/19 Gram Stain - Final, Complete 11/08/19 Aerobic and Anaerobic Culture - Final, Complete 11/06/19 Gram Stain Evaluation - Final, Complete 11/06/19 Respiratory Culture - Final, Complete 11/06/19 Antimicrobic Susceptibility - Final, Complete 10/18/19 Gram Stain - Final, Complete 10/18/19 Aerobic and Anaerobic Culture - Final, Complete 10/18/19 Antimicrobic Susceptibility - Final, Complete 09/25/19 Urine Culture - Final, Complete Vitals/I & O Vital Sign - Last 24 Hours 11/13/19 11/13/19 11/13/19 11/13/19 14:02 14:32 15:00 15:56 Temp 99.6 99.6 Pulse 140 Resp 35 30 30 B/P (MAP) 122/75 (91) Pulse Ox 100 99 99 98 O2 Delivery Nasal Cannula Nasal Cannula Nasal Cannula Nasal Cannula O2 Flow Rate 2.0 2.0 2.0 2.0 11/13/19 11/13/19 11/13/19 11/13/19 17:35 19:00 19:00 20:00 Temp 98.6 98.6 Pulse 129 Resp 28 B/P (MAP) 110/75 (87) Pulse Ox 99 98 100 O2 Delivery Nasal Cannula Nasal Cannula Nasal Cannula Nasal Cannula O2 Flow Rate 2.0 2.0 2.0 11/13/19 11/13/19 11/13/19 11/13/19 20:13 20:14 20:35 21:05 Resp 29 26 Pulse Ox 98 98 99 96 O2 Delivery Nasal Cannula Nasal Cannula Nasal Cannula Nasal Cannula O2 Flow Rate 2.0 2.0 11/13/19 11/14/19 11/14/19 11/14/19 23:00 00:27 03:00 03:27 Temp 99.0 98.6 99.0 98.6 Pulse 122 119 Resp B/P (MAP) 133/66 (88) 113/62 (79) Pulse Ox 99 98 100 99 O2 Delivery Nasal Cannula Nasal Cannula Nasal Cannula Nasal Cannula O2 Flow Rate 2.0 2.0 2.0 11/14/19 11/14/19 11/14/19 11/14/19 03:57 04:48 07:00 08:00 Temp 98.1 98.1 Pulse 112 Resp 23 24 B/P (MAP) Pulse Ox 100 98 98 96 O2 Delivery Nasal Cannula Nasal Cannula Nasal Cannula Nasal Cannula O2 Flow Rate 2.0 2.0 2.0 11/14/19 11/14/19 11/14/19 11/14/19 08:00 11:00 11:39 12:09 Pulse 130 Resp 49 30 B/P (MAP) Pulse Ox 98 95 O2 Delivery Nasal Cannula Nasal Cannula Nasal Cannula Nasal Cannula O2 Flow Rate 2.0 2.0 2.0 2.0 11/14/19 12:09 Pulse Ox 95 O2 Delivery Nasal Cannula O2 Flow Rate 2.0 Intake and Output 11/13/19 11/13/19 11/14/19 15:00 23:00 07:00 Intake Total 400 ml 991 ml 1287 ml Output Total 695 ml 400 ml 1070 ml Balance -295 ml 591 ml 217 ml Problem List Problems Medical Problems: (1) Acute pancreatitis Status: Acute (2) Cholelithiasis Status: Acute Assessment Necrotizing biliary pancreatitis with multiple complications, interventions. Remains critically ill, weak. Plan of Care Note Continue support. Justicifation of Admission Dx: Justifications for Admission: Justification of Admission Dx: Yes MARY RIVAS MD Nov 14, 2019 13:52
[2019-11-14] MEDS: ALPRAZolam 0.5 MG TABLET PO PRN (14:21)
[2019-11-14] MEDS: IV NORMAL SALINE 1000ML BAG 1,000 ML IV SCH (14:33)
--- NOTE | 2019-11-14 16:10 | NUR ---
SS following up with discharge planning. SS reviewed pt chart and discussed with pt RN. Pt is from home and is currently requiring two liters nasal canula. Pt on IV Daptomycin, IV Micafungin, and IV Avycaz. Pt on PPN. Per RN, pt is wearing speaking valve intermittently. Pt has KAYLIN drains x2, Mook drains x1, and G tube. SS will continue to follow for discharge planning.
[2019-11-15 03:00] VITALS: BP 121/72
[2019-11-15] MEDS: IPRATRPIUM/ALBUTEROL 0.5/2.5MG 3 ML NEBU. NEB SCH ×6 (04:20→23:35)
[2019-11-15] MEDS: INSULIN LISPRO 300 UNITS/3 ML VIAL. SQ SCH ×4 (06:00→17:52)
[2019-11-15] MEDS: fentaNYL PF VIAL 100 MCG/2 ML VIAL IV PRN ×3 (06:02→21:56)
[2019-11-15 06:07] LABS: BASO # 0.1 x10^3/uL (0.0-0.2); BASO % 1 % (0-3); EOS # 0.3 x10^3/uL (0.0-0.7); EOS % 2 % (0-3); HEMATOCRIT 24.4 % (36.0-47.0); HEMOGLOBIN 8.2 g/dL (12.0-15.5); LYMPH # 1.6 x10^3/uL (1.0-4.8); LYMPH % 10 % (24-48); MEAN CORPUSCULAR HEMOGLOBIN 28 pg (25-35); MEAN CORPUSCULAR HGB CONC 34 g/dL (31-37); MEAN CORPUSCULAR VOLUME 84 fL (79-100); MONO # 0.7 x10^3/uL (0.0-1.1); MONO % 4 % (0-9); NEUT # 13.9 x10^3/uL (1.8-7.7); NEUT % 84 % (31-73); PLATELET COUNT 576 x10^3/uL (140-400); RED CELL DISTRIBUTION WIDTH 15.8 % (11.5-14.5); WHITE BLOOD COUNT 16.6 x10^3/uL (4.0-11.0)
[2019-11-15 06:18] LABS: ALBUMIN 1.2 g/dL (3.4-5.0); ALBUMIN/GLOBULIN RATIO 0.3 (1.0-1.7); ALK PHOS 119 U/L (46-116); ALT (SGPT) 14 U/L (14-59); ANION GAP 2 (6-14); AST (SGOT) 15 U/L (15-37); BLOOD UREA NITROGEN 11 mg/dL (7-20); BUN/CREATININE RATIO 18 (6-20); CALCIUM 11.4 mg/dL (8.5-10.1); CARBON DIOXIDE 30 mmol/L (21-32); CHLORIDE 102 mmol/L (98-107); CREATININE 0.6 mg/dL (0.6-1.0); GFR 106.3; GLUCOSE 115 mg/dL (70-99); POTASSIUM 4.6 mmol/L (3.5-5.1); SODIUM 134 mmol/L (136-145); TOTAL BILIRUBIN 0.5 mg/dL (0.2-1.0); TOTAL PROTEIN 5.5 g/dL (6.4-8.2)
[2019-11-15] MEDS: CEFTAZIDIME/AVIBACTAM 2.5 GM in IV NORMAL SALINE 250ML 250 ML IV SCH ×3 (06:21→21:52)
[2019-11-15 06:30] LABS: CREATINE KINASE < 7 U/L (26-192)
[2019-11-15 07:00] VITALS: BP 111/71
[2019-11-15] MEDS: ACETYLCYSTEINE 20% for RESP TX 600 MG/3 ML. NEB SCH ×2 (08:00→19:48)
--- NOTE | 2019-11-15 08:13 | PDOC ---
Infectious Disease Note Subjective Subjective States ok. No N/SOAF/S/C. pain ok On 2 L O2 by nasal cannula TPN ROS ROS o/w neg Vital Sign Vital Signs Vital Signs Date Time Temp Pulse Resp B/P (MAP) Pulse Ox O2 Delivery O2 Flow Rate FiO2 11/15/19 04:36 96 Nasal Cannula 2.0 11/15/19 03:00 99.1 122 34 121/72 (88) 99.1 Physical Exam PHYSICAL EXAM GENERAL: pt in bed, appears weak -comfortable -alert HEENT: Pupils equal, oral cavity dry. OC/Op - Dry NECK: Tracheostomy - no JVD LUNGS: Diminished aeration bases, CT on left HEART: S1, S2, ABDOMEN: Distended mild- bowel sounds hypoactive, soft, goyal x 2, KAYLIN drains, G-J tube : Lind in place EXTREMITIES: Trace generalized edema, no cyanosis. RADHA hose bilaterally, SKIN: warm touch. No signs of rash. LUE- PICC without signs of complications NEURO: - Alert and responsive Labs Lab Laboratory Tests Test 11/14/19 12:46 11/14/19 17:29 11/14/19 23:53 11/15/19 05:45 Glucose (Fingerstick) 141 mg/dL (70-99) 135 mg/dL (70-99) 106 mg/dL (70-99) White Blood Count 16.6 x10^3/uL (4.0-11.0) Red Blood Count 2.90 x10^6/uL (3.50-5.40) Hemoglobin 8.2 g/dL (12.0-15.5) Hematocrit 24.4 % (36.0-47.0) Mean Corpuscular Volume 84 fL (79-100) Mean Corpuscular Hemoglobin 28 pg (25-35) Mean Corpuscular Hemoglobin Concent 34 g/dL (31-37) Red Cell Distribution Width 15.8 % (11.5-14.5) Platelet Count 576 x10^3/uL (140-400) Neutrophils (%) (Auto) 84 % (31-73) Lymphocytes (%) (Auto) 10 % (24-48) Monocytes (%) (Auto) 4 % (0-9) Eosinophils (%) (Auto) 2 % (0-3) Basophils (%) (Auto) 1 % (0-3) Neutrophils # (Auto) 13.9 x10^3/uL (1.8-7.7) Lymphocytes # (Auto) 1.6 x10^3/uL (1.0-4.8) Monocytes # (Auto) 0.7 x10^3/uL (0.0-1.1) Eosinophils # (Auto) 0.3 x10^3/uL (0.0-0.7) Basophils # (Auto) 0.1 x10^3/uL (0.0-0.2) Sodium Level 134 mmol/L (136-145) Potassium Level 4.6 mmol/L (3.5-5.1) Chloride Level 102 mmol/L (98-107) Carbon Dioxide Level 30 mmol/L (21-32) Anion Gap 2 (6-14) Blood Urea Nitrogen 11 mg/dL (7-20) Creatinine 0.6 mg/dL (0.6-1.0) Estimated GFR (Cockcroft-Gault) 106.3 BUN/Creatinine Ratio 18 (-20) Glucose Level 115 mg/dL (70-99) Calcium Level 11.4 mg/dL (8.5-10.1) Total Bilirubin 0.5 mg/dL (0.2-1.0) Aspartate Amino Transf (AST/SGOT) 15 U/L (15-37) Alanine Aminotransferase (ALT/SGPT) 14 U/L (14-59) Alkaline Phosphatase 119 U/L (46-116) Creatine Kinase < 7 U/L (26-192) Total Protein 5.5 g/dL (6.4-8.2) Albumin 1.2 g/dL (3.4-5.0) Albumin/Globulin Ratio 0.3 (1.0-1.7) Test 11/15/19 06:23 Glucose (Fingerstick) 113 mg/dL (70-99) Micro 6/7 GRAM STAIN Final Final GRAM NEGATIVE RODS:MODERATE SQUAMOUS EPI CELL:NOT APPLICABLE PMN (WBCs):RARE YEAST:MODERATE Unless otherwise specified, Testing Performed by: [facility] [address] [place] [address] For Inquires, the Physician may contact the Microbiology department at [phone] ANAEROBIC-AEROBIC CULTURE Preliminary Preliminary MANY GRAM NEGATIVE RODS on 09/27/19 at 1158 FINAL ID= [[email or web address]] PSEUDOMONAS AERUGINOSA ANTIMICROBIAL SUSCEPTIBILITY Preliminary Comment NEG ALEXANDRA 56 PSEUDOMONAS AERUGINOSA ANTIBIOTIC RESULT INTERPRETATION AMIKACIN <=16 S AZTREONAM >16 R CEFTAZIDIME >16 R CIPROFLOXACIN <=0.25 S CEFEPIME 16 I CEFTAZIDIME/AVIBACTAM <=4 S GENTAMICIN <=2 S CONTINUED ON NEXT PAGE RUN DATE: 09/29/19 [facility] *LIVE* PAGE 2 RUN TIME: 1016 Specimen Inquiry SPEC: [id number] PATIENT: SCOTT CUELLAR [id number] (Continued) -- Procedure Result ANTIMICROBIAL SUSCEPTIBILITY Preliminary (continued) LEVOFLOXACIN <=0.5 S MEROPENEM <=1 S PIPERACILLIN/TAZOBACTAM 64 S TOBRAMYCIN <=2 S Unless otherwise specified, Testing Performed by: [facility] [address] [place] [address] For Inquires, the Physician may contact the Microbiology department at [phone] CT Scan 09/23 IMPRESSION: 1. Removal of the percutaneous pigtail drainage catheters since the prior exam. Sequela of pancreatitis with extensive pseudocysts again demonstrated, the right-sided collections are slightly larger since the prior exam, the left-sided collections are stable. See above. 2. Moderate to large left pleural effusion with atelectasis and collapse of most of the left lower lobe, stable. Small right pleural effusion is stable. 3. Gallstone. Objective Assessment Patient with prolonged hospitalization more than 4 months Multiple medical problems Multiple surgical procedures S/P Exp. 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 parapsilosis & PSAE (I-merrem/ceftazidime/AZT/cefepime)) Leucocytosis - mild increase ? reactive as clinically looks well Fever - 11/11 c-diff neg Anemia Acute gallstone pancreatitis with persistent necrosis - 07/27. CT A/P Increased ascites. 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 status post KAYLIN drain placement; C. parapsilosis. s/p drain 08/23 + yeast & high amylase; s/p additional drain on 08/25. Drains removed. -08/23. fluid devyn parapsilosis fluid, amylase high - 09/23 showed multiple pseudocysts, slight larger on the right. s/p drains x 3, 09/24. + PSAE (MDRO-R Cefepime, Zosyn ALEXANDRA < 64) and yeast, -09/24 s/p drain replacement x 3; fluid cult PSAE (MDRO), yeast; treated -10/29 CT A/P shows smaller fluid collections. -722 CT abdomen and pelvis drains in place Ascites s/p paracentesis 08/02 & 08/23. C. parapsilosis Cholelithiasis with thickening of the gallbladder wall. JUANA, Hyperkalemia, Metabolic acidosis off dialysis Acute hypoxic resp failure. trach/vent. sputum 09/30 + PSAE (I merrem) ; sputum culture November 05+ for PSAE R Merrem, sensitive to cefepime Pleural effusion status post CTS left side Abdominal fluid culture MDRO Pseudomonas, yeast Sputum culture positive 11/05 for MDRO Pseudomonas Chest tube fluid positive for 11/07 Devyn Parapsilosis Plan Plan of Care Continue Avycaz 11/09 /micafungin 10/17 Restart daptomycin 11/12(CK <7 11/14) Replace PICC if Blood cults neg 48 hours CBC/CMP in am UA and urine culture Blood culture/Cath tip neg - pending DC PICC line 11/12 BC from neg to date C. 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
[2019-11-15] MEDS: AMINO AC 3%/ELECTROLYTE/GLYCER 1,000 ML IV SCH ×2 (08:20→21:51)
[2019-11-15] MEDS: PANTOPRAZOLE IV PUSH 40 MG VIAL. IVP SCH (08:21)
[2019-11-15] MEDS: fentaNYL 12MCG/HR PATCH 1 PATCH PATCH.TD72 TD SCH (08:21)
[2019-11-15] MEDS: MICAFUNGIN 100 MG in IV DEXTROSE 5% 100ML 100 ML IV SCH (08:22)
[2019-11-15] MEDS: ENOXAPARIN 40 MG/0.4 ML SYRINGE. SQ SCH (08:22)
--- NOTE | 2019-11-15 09:19 | PDOC ---
PROGRESS NOTES Subjective Subjective pt awakens Objective Objective Vital Signs Date Time Temp Pulse Resp B/P (MAP) Pulse Ox O2 Delivery O2 Flow Rate FiO2 11/15/19 08:21 31 95 Nasal Cannula 2.0 11/15/19 03:00 99.1 122 121/72 (88) 99.1 Intake and Output 11/15/19 07:00 Intake Total 2387 ml Output Total 2585 ml Balance -198 ml IV Total 2387 ml Output Urine Total 1450 ml Drainage Total 1135 ml Physical Exam Abdomen: Soft (drains in place, wound vac in place) Assessment Assessment Problems Medical Problems: (1) Acute pancreatitis Status: Acute (2) Cholelithiasis Status: Acute Plan Plan of Care Nurse states interest in starting tube feeds; reviewed with Dr Servin; will ask IR to confirm GJ tube in place Comment Review of Relevant I have reviewed the following items kolby (where applicable) has been applied. Labs Laboratory Tests Test 11/13/19 11:28 11/13/19 17:39 11/14/19 00:21 11/14/19 04:10 Glucose (Fingerstick) 144 mg/dL (70-99) 117 mg/dL (70-99) 114 mg/dL (70-99) White Blood Count 12.1 x10^3/uL (4.0-11.0) Red Blood Count 2.71 x10^6/uL (3.50-5.40) Hemoglobin 7.7 g/dL (12.0-15.5) Hematocrit 23.2 % (36.0-47.0) Mean Corpuscular Volume 85 fL (79-100) Mean Corpuscular Hemoglobin 28 pg (25-35) Mean Corpuscular Hemoglobin Concent 33 g/dL (31-37) Red Cell Distribution Width 16.0 % (11.5-14.5) Platelet Count 563 x10^3/uL (140-400) Neutrophils (%) (Auto) 78 % (31-73) Lymphocytes (%) (Auto) 12 % (24-48) Monocytes (%) (Auto) 8 % (0-9) Eosinophils (%) (Auto) 2 % (0-3) Basophils (%) (Auto) 1 % (0-3) Neutrophils # (Auto) 9.4 x10^3/uL (1.8-7.7) Lymphocytes # (Auto) 1.4 x10^3/uL (1.0-4.8) Monocytes # (Auto) 0.9 x10^3/uL (0.0-1.1) Eosinophils # (Auto) 0.3 x10^3/uL (0.0-0.7) Basophils # (Auto) 0.1 x10^3/uL (0.0-0.2) Test 11/14/19 04:15 11/14/19 06:10 11/14/19 12:46 11/14/19 17:29 Sodium Level 135 mmol/L (136-145) Potassium Level 4.6 mmol/L (3.5-5.1) Chloride Level 103 mmol/L (98-107) Carbon Dioxide Level 25 mmol/L (21-32) Anion Gap 7 (6-14) Blood Urea Nitrogen 16 mg/dL (-20) Creatinine 0.7 mg/dL (0.6-1.0) Estimated GFR (Cockcroft-Gault) 88.9 BUN/Creatinine Ratio 23 (6-20) Glucose Level 114 mg/dL (70-99) Calcium Level 10.9 mg/dL (8.5-10.1) Total Bilirubin 0.5 mg/dL (0.2-1.0) Aspartate Amino Transf (AST/SGOT) 18 U/L (15-37) Alanine Aminotransferase (ALT/SGPT) 13 U/L (14-59) Alkaline Phosphatase 123 U/L (46-116) Total Protein 5.4 g/dL (6.4-8.2) Albumin 1.1 g/dL (3.4-5.0) Albumin/Globulin Ratio 0.3 (1.0-1.7) Glucose (Fingerstick) 116 mg/dL (70-99) 141 mg/dL (70-99) 135 mg/dL (70-99) Test 11/14/19 23:53 11/15/19 05:45 11/15/19 06:23 Glucose (Fingerstick) 106 mg/dL (70-99) 113 mg/dL (70-99) White Blood Count 16.6 x10^3/uL (4.0-11.0) Red Blood Count 2.90 x10^6/uL (3.50-5.40) Hemoglobin 8.2 g/dL (12.0-15.5) Hematocrit 24.4 % (36.0-47.0) Mean Corpuscular Volume 84 fL (79-100) Mean Corpuscular Hemoglobin 28 pg (25-35) Mean Corpuscular Hemoglobin Concent 34 g/dL (31-37) Red Cell Distribution Width 15.8 % (11.5-14.5) Platelet Count 576 x10^3/uL (140-400) Neutrophils (%) (Auto) 84 % (31-73) Lymphocytes (%) (Auto) 10 % (24-48) Monocytes (%) (Auto) 4 % (0-9) Eosinophils (%) (Auto) 2 % (0-3) Basophils (%) (Auto) 1 % (0-3) Neutrophils # (Auto) 13.9 x10^3/uL (1.8-7.7) Lymphocytes # (Auto) 1.6 x10^3/uL (1.0-4.8) Monocytes # (Auto) 0.7 x10^3/uL (0.0-1.1) Eosinophils # (Auto) 0.3 x10^3/uL (0.0-0.7) Basophils # (Auto) 0.1 x10^3/uL (0.0-0.2) Sodium Level 134 mmol/L (136-145) Potassium Level 4.6 mmol/L (3.5-5.1) Chloride Level 102 mmol/L (98-107) Carbon Dioxide Level 30 mmol/L (21-32) Anion Gap 2 (6-14) Blood Urea Nitrogen 11 mg/dL (7-20) Creatinine 0.6 mg/dL (0.6-1.0) Estimated GFR (Cockcroft-Gault) 106.3 BUN/Creatinine Ratio 18 (6-20) Glucose Level 115 mg/dL (70-99) Calcium Level 11.4 mg/dL (8.5-10.1) Total Bilirubin 0.5 mg/dL (0.2-1.0) Aspartate Amino Transf (AST/SGOT) 15 U/L (15-37) Alanine Aminotransferase (ALT/SGPT) 14 U/L (14-59) Alkaline Phosphatase 119 U/L (46-116) Creatine Kinase < 7 U/L (26-192) Total Protein 5.5 g/dL (6.4-8.2) Albumin 1.2 g/dL (3.4-5.0) Albumin/Globulin Ratio 0.3 (1.0-1.7) Laboratory Tests Test 11/14/19 12:46 11/14/19 17:29 11/14/19 23:53 11/15/19 05:45 Glucose (Fingerstick) 141 mg/dL (70-99) 135 mg/dL (70-99) 106 mg/dL (70-99) White Blood Count 16.6 x10^3/uL (4.0-11.0) Red Blood Count 2.90 x10^6/uL (3.50-5.40) Hemoglobin 8.2 g/dL (12.0-15.5) Hematocrit 24.4 % (36.0-47.0) Mean Corpuscular Volume 84 fL (79-100) Mean Corpuscular Hemoglobin 28 pg (25-35) Mean Corpuscular Hemoglobin Concent 34 g/dL (31-37) Red Cell Distribution Width 15.8 % (11.5-14.5) Platelet Count 576 x10^3/uL (140-400) Neutrophils (%) (Auto) 84 % (31-73) Lymphocytes (%) (Auto) 10 % (24-48) Monocytes (%) (Auto) 4 % (0-9) Eosinophils (%) (Auto) 2 % (0-3) Basophils (%) (Auto) 1 % (0-3) Neutrophils # (Auto) 13.9 x10^3/uL (1.8-7.7) Lymphocytes # (Auto) 1.6 x10^3/uL (1.0-4.8) Monocytes # (Auto) 0.7 x10^3/uL (0.0-1.1) Eosinophils # (Auto) 0.3 x10^3/uL (0.0-0.7) Basophils # (Auto) 0.1 x10^3/uL (0.0-0.2) Sodium Level 134 mmol/L (136-145) Potassium Level 4.6 mmol/L (3.5-5.1) Chloride Level 102 mmol/L (98-107) Carbon Dioxide Level 30 mmol/L (21-32) Anion Gap 2 (6-14) Blood Urea Nitrogen 11 mg/dL (7-20) Creatinine 0.6 mg/dL (0.6-1.0) Estimated GFR (Cockcroft-Gault) 106.3 BUN/Creatinine Ratio 18 (6-20) Glucose Level 115 mg/dL (70-99) Calcium Level 11.4 mg/dL (8.5-10.1) Total Bilirubin 0.5 mg/dL (0.2-1.0) Aspartate Amino Transf (AST/SGOT) 15 U/L (15-37) Alanine Aminotransferase (ALT/SGPT) 14 U/L (14-59) Alkaline Phosphatase 119 U/L (46-116) Creatine Kinase < 7 U/L (26-192) Total Protein 5.5 g/dL (6.4-8.2) Albumin 1.2 g/dL (3.4-5.0) Albumin/Globulin Ratio 0.3 (1.0-1.7) Test 11/15/19 06:23 Glucose (Fingerstick) 113 mg/dL (70-99) Microbiology 11/13/19 Gram Stain - Final, Resulted 11/13/19 Aerobic Culture, Resulted Pending 11/13/19 Blood Culture - Preliminary, Resulted NO GROWTH AFTER 1 DAY 11/08/19 Gram Stain - Final, Complete 11/08/19 Aerobic and Anaerobic Culture - Final, Complete 11/06/19 Gram Stain Evaluation - Final, Complete 11/06/19 Respiratory Culture - Final, Complete 11/06/19 Antimicrobic Susceptibility - Final, Complete 10/18/19 Gram Stain - Final, Complete 10/18/19 Aerobic and Anaerobic Culture - Final, Complete 10/18/19 Antimicrobic Susceptibility - Final, Complete 09/25/19 Urine Culture - Final, Complete Medications Current Medications Sodium Chloride 1,000 ml @ 1,000 mls/hr Q1H IV Last administered on 07/04/19at 03:00; Start 07/04/19 at 03:00; Stop 07/04/19 at 03:59; Status DC Ondansetron HCl (Zofran) 4 mg 1X ONCE IVP Last administered on 07/04/19at 03:27; Start 07/04/19 at 03:00; Stop 07/04/19 at 03:01; Status DC Morphine Sulfate (Morphine Sulfate) 4 mg 1X ONCE IV ; Start 07/04/19 at 03:00; Stop 07/04/19 at 03:01; Status Cancel Ketorolac Tromethamine (Toradol 30mg Vial) 30 mg 1X ONCE IV Last administered on 07/04/19at 02:54; Start 07/04/19 at 03:00; Stop 07/04/19 at 03:01; Status DC Fentanyl Citrate (Fentanyl 2ml Vial) 25 mcg 1X ONCE IVP Last administered on 07/04/19at 03:23; Start 07/04/19 at 03:30; Stop 07/04/19 at 03:31; Status DC Fentanyl Citrate (Fentanyl 2ml Vial) 100 mcg STK-MED ONCE .ROUTE ; Start 07/04/19 at 03:18; Stop 07/04/19 at 03:18; Status DC Iohexol (Omnipaque 350 Mg/ml) 90 ml 1X ONCE IV Last administered on 07/04/19at 03:25; Start 07/04/19 at 03:30; Stop 07/04/19 at 03:31; Status DC Info (CONTRAST GIVEN -- Rx MONITORING) 1 each PRN DAILY PRN MC SEE COMMENTS; Start 07/04/19 at 03:30; Stop 07/06/19 at 03:29; Status DC Hydromorphone HCl (Dilaudid) 0.5 mg 1X ONCE IV Last administered on 07/04/19at 03:55; Start 07/04/19 at 04:30; Stop 07/04/19 at 04:32; Status DC Ondansetron HCl (Zofran) 4 mg PRN Q8HRS PRN IV NAUSEA/VOMITING 1ST CHOICE; Start 07/04/19 at 05:00; Stop 07/04/19 at 09:27; Status DC Morphine Sulfate (Morphine Sulfate) 2 mg PRN Q2HR PRN IV SEVERE PAIN 7-10 Last administered on 07/05/19at 12:26; Start 07/04/19 at 05:00; Stop 07/05/19 at 14:15; Status DC Sodium Chloride 1,000 ml @ 125 mls/hr Q8H IV Last administered on 07/04/19at 20:56; Start 07/04/19 at 05:00; Stop 07/05/19 at 04:59; Status DC Hydromorphone HCl (Dilaudid) 0.5 mg PRN Q3HRS PRN IV SEVERE PAIN 7-10 Last administered on 07/05/19at 10:06; Start 07/04/19 at 05:00; Stop 07/05/19 at 12:01; Status DC Piperacillin Sod/ Tazobactam Sod 4.5 gm/Sodium Chloride 100 ml @ 200 mls/hr 1X ONCE IV Last administered on 07/04/19at 05:44; Start 07/04/19 at 06:00; Stop 07/04/19 at 06:29; Status DC Ondansetron HCl (Zofran) 4 mg PRN Q4HRS PRN IV NAUSEA/VOMITING 1ST CHOICE Last administered on 11/14/19at 00:56; Start 07/04/19 at 09:30 Insulin Human Lispro (HumaLOG) 0-9 UNITS Q6HRS SQ Last administered on 11/11/19at 12:26; Start 07/04/19 at 09:30 Dextrose (Dextrose 50%-Water Syringe) 12.5 gm PRN Q15MIN PRN IV SEE COMMENTS; Start 07/04/19 at 09:30 Pantoprazole Sodium (PROTONIX VIAL for IV PUSH) 40 mg DAILYAC IVP Last administered on 11/15/19at 08:21; Start 07/04/19 at 11:30 Prochlorperazine Edisylate (Compazine) 10 mg PRN Q6HRS PRN IV NAUSEA/VOMITING, 2nd CHOICE Last administered on 11/14/19at 09:49; Start 07/04/19 at 17:45 Atenolol (Tenormin) 100 mg DAILY PO ; Start 07/05/19 at 09:00; Stop 07/04/19 at 20:08; Status DC Metoprolol Tartrate (Lopressor Vial) 2.5 mg Q6HRS IVP Last administered on 07/05/19at 05:51; Start 07/04/19 at 20:15; Stop 07/05/19 at 10:02; Status DC Metoprolol Tartrate (Lopressor Vial) 5 mg Q6HRS IVP Last administered on 07/14/19at 00:12; Start 07/05/19 at 10:15; Stop 07/16/19 at 08:48; Status DC Hydromorphone HCl (Dilaudid) 1 mg PRN Q3HRS PRN IV SEVERE PAIN 7-10 Last administered on 07/11/19at 05:13; Start 07/05/19 at 12:00; Stop 07/19/19 at 00:25; Status DC Lidocaine HCl (Buffered Lidocaine 1%) 3 ml STK-MED ONCE .ROUTE ; Start 07/05/19 at 12:55; Stop 07/05/19 at 12:56; Status DC Albumin Human 500 ml @ 125 mls/hr 1X ONCE IV Last administered on 07/05/19at 14:33; Start 07/05/19 at 14:30; Stop 07/05/19 at 18:32; Status DC Norepinephrine Bitartrate 8 mg/ Dextrose 258 ml @ 17.299 mls/ hr CONT PRN IV PER PROTOCOL Last administered on 08/02/19at 12:48; Start 07/05/19 at 15:30; Stop 08/05/19 at 09:19; Status DC Sodium Chloride 1,000 ml @ 125 mls/hr Q8H IV Last administered on 07/05/19at 21:04; Start 07/05/19 at 16:00; Stop 07/06/19 at 02:42; Status DC Albumin Human 500 ml @ 125 mls/hr PRN BID PRN IV After every 2L NSS & BP < 90mm Last administered on 10/18/19at 16:06; Start 07/05/19 at 16:00; Stop 10/21/19 at 09:30; Status DC Iohexol (Omnipaque 300 Mg/ml) 60 ml 1X ONCE IV Last administered on 07/05/19at 17:20; Start 07/05/19 at 17:00; Stop 07/05/19 at 17:01; Status DC Info (CONTRAST GIVEN -- Rx MONITORING) 1 each PRN DAILY PRN MC SEE COMMENTS; Start 07/05/19 at 17:00; Stop 07/07/19 at 16:59; Status DC Meropenem 1 gm/ Sodium Chloride 100 ml @ 200 mls/hr Q8HRS IV Last administered on 07/06/19at 05:45; Start 07/05/19 at 20:00; Stop 07/06/19 at 08:48; Status DC Furosemide (Lasix) 40 mg 1X ONCE IVP Last administered on 07/05/19at 22:12; Start 07/05/19 at 22:30; Stop 07/05/19 at 22:31; Status DC Calcium Chloride 1000 mg/Sodium Chloride 110 ml @ 220 mls/hr 1X ONCE IV Last administered on 07/05/19at 22:11; Start 07/05/19 at 22:30; Stop 07/05/19 at 22:59; Status DC Albuterol Sulfate (Ventolin Neb Soln) 2.5 mg 1X ONCE NEB Last administered on 07/06/19at 00:56; Start 07/05/19 at 22:30; Stop 07/05/19 at 22:31; Status DC Insulin Human Regular (HumuLIN R VIAL) 5 unit 1X ONCE IV Last administered on 07/05/19at 22:14; Start 07/05/19 at 22:30; Stop 07/05/19 at 22:31; Status DC Magnesium Sulfate 50 ml @ 25 mls/hr 1X ONCE IV Last administered on 07/06/19at 02:57; Start 07/06/19 at 03:00; Stop 07/06/19 at 04:59; Status DC Calcium Gluconate 1000 mg/Sodium Chloride 110 ml @ 220 mls/hr 1X ONCE IV Last administered on 07/06/19at 02:46; Start 07/06/19 at 03:00; Stop 07/06/19 at 03:29; Status DC Sodium Chloride 1,000 ml @ 200 mls/hr Q5H IV Last administered on 07/06/19at 02:46; Start 07/06/19 at 03:00; Stop 07/06/19 at 10:21; Status DC Calcium Gluconate 1000 mg/Sodium Chloride 110 ml @ 220 mls/hr 1X ONCE IV Last administered on 07/06/19at 03:21; Start 07/06/19 at 03:30; Stop 07/06/19 at 03:59; Status DC Sodium Bicarbonate 50 meq/Sodium Chloride 1,050 ml @ 75 mls/hr Q14H IV Last administered on 07/10/19at 21:10; Start 07/06/19 at 07:30; Stop 07/11/19 at 10:28 ; Status DC Calcium Gluconate 2000 mg/Sodium Chloride 120 ml @ 220 mls/hr 1X ONCE IV Last administered on 07/06/19at 09:05; Start 07/06/19 at 07:30; Stop 07/06/19 at 08:02; Status DC Lidocaine HCl (Xylocaine-Mpf 1% 2ml Vial) 2 ml STK-MED ONCE .ROUTE ; Start 07/06/19 at 08:47; Stop 07/06/19 at 08:47; Status DC Meropenem 500 mg/ Sodium Chloride 50 ml @ 100 mls/hr Q12HR IV Last administered on 07/11/19at 21:01; Start 07/06/19 at 18:00; Stop 07/12/19 at 07:58; Status DC Lidocaine HCl (Buffered Lidocaine 1%) 3 ml STK-MED ONCE .ROUTE ; Start 07/06/19 at 09:46; Stop 07/06/19 at 09:46; Status DC Lidocaine HCl (Buffered Lidocaine 1%) 6 ml 1X ONCE INJ Last administered on 07/06/19at 10:26; Start 07/06/19 at 10:15; Stop 07/06/19 at 10:16; Status DC Info (Tpn Per Pharmacy) 1 each PRN DAILY PRN MC SEE COMMENTS Last administered on 11/13/19at 08:31; Start 07/06/19 at 12:00; Stop 11/13/19 at 10:41; Status DC Sodium Chloride 1,000 ml @ 1,000 mls/hr Q1H PRN IV hypotension; Start 07/06/19 at 12:07; Stop 07/06/19 at 18:06; Status DC Diphenhydramine HCl (Benadryl) 25 mg 1X PRN PRN IV ITCHING; Start 07/06/19 at 12:15; Stop 07/07/19 at 12:14; Status DC Diphenhydramine HCl (Benadryl) 25 mg 1X PRN PRN IV ITCHING; Start 07/06/19 at 12:15; Stop 07/07/19 at 12:14; Status DC Sodium Chloride 1,000 ml @ 400 mls/hr Q2H30M PRN IV PATENCY; Start 07/06/19 at 12:07; Stop 07/07/19 at 00:06; Status DC Info (PHARMACY MONITORING -- do not chart) 1 each PRN DAILY PRN MC SEE COMMENTS; Start 07/06/19 at 12:15; Stop 07/08/19 at 08:13; Status DC Sodium Chloride 90 meq/Calcium Gluconate 10 meq/ Multivitamins 10 ml/Chromium/ Copper/Manganese/ Seleni/Zn 1 ml/ Total Parenteral Nutrition/Amino Acids/Dextrose/ Fat Emulsion Intravenous 55.005 ml @ 2.292 mls/hr TPN CONT IV ; Start 07/06/19 at 22:00; Stop 07/06/19 at 12:33; Status DC Info (Tpn Per Pharmacy) 1 each PRN DAILY PRN MC SEE COMMENTS; Start 07/06/19 at 12:30; Status UNV Sodium Chloride 90 meq/Calcium Gluconate 10 meq/ Multivitamins 10 ml/Chromium/ Copper/Manganese/ Seleni/Zn 0.5 ml/ Total Parenteral Nutrition/Amino Acids/Dextrose/ Fat Emulsion Intravenous 1,512 ml @ 63 mls/hr TPN CONT IV Last administered on 07/06/19at 22:06; Start 07/06/19 at 22:00; Stop 07/07/19 at 21:59; Status DC Calcium Carbonate/ Glycine (Tums) 500 mg PRN AFTMEALHC PRN PO INDIGESTION; Start 07/06/19 at 17:45; Stop 08/31/19 at 10:25; Status DC Calcium Gluconate (Calcium Gluconate) 2,000 mg 1X ONCE IVP Last administered on 07/07/19at 02:19; Start 07/07/19 at 02:15; Stop 07/07/19 at 02:16; Status DC Calcium Chloride 3000 mg/Sodium Chloride 1,030 ml @ 50 mls/hr [id number] IV Last administered on 07/09/19at 02:17; Start 07/07/19 at 08:00; Stop 07/09/19 at 15:23; Status DC Lorazepam (Ativan Inj) 1 mg PRN Q4HRS PRN IVP ANXIETY / AGITATION, 2nd choic Last administered on 08/05/19at 03:51; Start 07/07/19 at 09:00; Stop 08/05/19 at 09:19; Status DC Sodium Chloride 1,000 ml @ 1,000 mls/hr Q1H PRN IV hypotension; Start 07/07/19 at 08:56; Stop 07/07/19 at 14:55; Status DC Albumin Human 200 ml @ 200 mls/hr 1X PRN PRN IV Hypotension; Start 07/07/19 at 09:00; Stop 07/07/19 at 14:59; Status DC Diphenhydramine HCl (Benadryl) 25 mg 1X PRN PRN IV ITCHING; Start 07/07/19 at 09:00; Stop 07/08/19 at 08:59; Status DC Diphenhydramine HCl (Benadryl) 25 mg 1X PRN PRN IV ITCHING; Start 07/07/19 at 09:00; Stop 07/08/19 at 08:59; Status DC Sodium Chloride 1,000 ml @ 400 mls/hr Q2H30M PRN IV PATENCY; Start 07/07/19 at 08:56; Stop 07/07/19 at 20:55; Status DC Info (PHARMACY MONITORING -- do not chart) 1 each PRN DAILY PRN MC SEE COMMENTS; Start 07/07/19 at 09:00; Status UNV Info (PHARMACY MONITORING -- do not chart) 1 each PRN DAILY PRN MC SEE COMME NTS; Start 07/07/19 at 09:00; Stop 07/08/19 at 08:13; Status DC Digoxin (Lanoxin) 500 mcg 1X ONCE IV Last administered on 07/07/19at 10:04; Start 07/07/19 at 10:00; Stop 07/07/19 at 10:01; Status DC Digoxin (Lanoxin) 125 mcg 1X ONCE IV Last administered on 07/07/19at 17:10; Start 07/07/19 at 18:00; Stop 07/07/19 at 18:01; Status DC Magnesium Sulfate 100 ml @ 25 mls/hr 1X ONCE IV Last administered on 07/07/19at 12:48; Start 07/07/19 at 13:00; Stop 07/07/19 at 16:59; Status DC Sodium Chloride 90 meq/Magnesium Sulfate 10 meq/ Calcium Gluconate 20 meq/ Multivitamins 10 ml/Chromium/ Copper/Manganese/ Seleni/Zn 0.5 ml/ Total Paren teral Nutrition/Amino Acids/Dextrose/ Fat Emulsion Intravenous 1,512 ml @ 63 mls/hr TPN CONT IV Last administered on 07/07/19at 22:25; Start 07/07/19 at 22:00; Stop 07/08/19 at 21:59; Status DC Sodium Chloride 1,000 ml @ 1,000 mls/hr Q1H PRN IV hypotension; Start 07/08/19 at 08:05; Stop 07/08/19 at 14:04; Status DC Albumin Human 200 ml @ 200 mls/hr 1X ONCE IV Last administered on 07/08/19at 08:57; Start 07/08/19 at 08:15; Stop 07/08/19 at 09:14; Status DC Diphenhydramine HCl (Benadryl) 25 mg 1X PRN PRN IV ITCHING; Start 07/08/19 at 08:15; Stop 07/09/19 at 08:14; Status DC Diphenhydramine HCl (Benadryl) 25 mg 1X PRN PRN IV ITCHING; Start 07/08/19 at 08:15; Stop 07/09/19 at 08:14; Status DC Sodium Chloride 1,000 ml @ 400 mls/hr Q2H30M PRN IV PATENCY; Start 07/08/19 at 08:05; Stop 07/08/19 at 20:04; Status DC Info (PHARMACY MONITORING -- do not chart) 1 each PRN DAILY PRN MC SEE COMMENTS; Start 07/08/19 at 08:15; Stop 07/12/19 at 07:57; Status DC Sodium Chloride 90 meq/Potassium Chloride 15 meq/ Potassium Phosphate 10 mmol/ Magnesium Sulfate 10 meq/Calcium Gluconate 20 meq/ Multivitamins 10 ml/Chromium/ Copper/Manganese/ Seleni/Zn 0.5 ml/ Total Parenteral Nutrition/Amino Acids/Dextrose/ Fat Emulsion Intravenous 1,512 ml @ 63 mls/hr TPN CONT IV Last administered on 07/08/19at 21:01; Start 07/08/19 at 22:00; Stop 07/09/19 at 21:59; Status DC Potassium Chloride/Water 100 ml @ 100 mls/hr 1X ONCE IV Last administered on 07/08/19at 14:09; Start 07/08/19 at 14:00; Stop 07/08/19 at 14:59; Status DC Benzocaine (Hurricaine One) 1 spray 1X ONCE MM Last administered on 07/08/19at 16:38; Start 07/08/19 at 14:30; Stop 07/08/19 at 14:31; Status DC Lidocaine HCl (Glydo (Lidocaine) Jelly) 1 ramu 1X ONCE MM Last administered on 07/08/19at 16:38; Start 07/08/19 at 14:30; Stop 07/08/19 at 14:31; Status DC Linezolid/Dextrose 300 ml @ 300 mls/hr Q12HR IV Last administered on 07/14/19at 21:04; Start 07/08/19 at 20:00; Stop 07/15/19 at 07:50; Status DC Acetaminophen (Tylenol) 650 mg PRN Q6HRS PRN PO MILD PAIN / TEMP; Start 07/09/19 at 03:30; Stop 07/09/19 at 03:36; Status DC Acetaminophen (Tylenol) 650 mg PRN Q6HRS PRN PEG MILD PAIN / TEMP Last administered on 08/04/19at 19:56; Start 07/09/19 at 03:36; Stop 08/31/19 at 10:25; Status DC Sodium Chloride 1,000 ml @ 1,000 mls/hr Q1H PRN IV hypotension; Start 07/09/19 at 07:50; Stop 07/09/19 at 13:49; Status DC Albumin Human 200 ml @ 200 mls/hr 1X PRN PRN IV Hypotension; Start 07/09/19 at 08:00; Stop 07/09/19 at 13:59; Status DC Sodium Chloride (Normal Saline Flush) 10 ml 1X PRN PRN IV AP catheter pack; Start 07/09/19 at 08:00; Stop 07/10/19 at 07:59; Status DC Sodium Chloride (Normal Saline Flush) 10 ml 1X PRN PRN IV MANAG[employer] catheter pack; Start 07/09/19 at 08:00; Stop 07/10/19 at 07:59; Status DC Sodium Chloride 1,000 ml @ 400 mls/hr Q2H30M PRN IV PATENCY; Start 07/09/19 at 07:50; Stop 07/09/19 at 19:49; Status DC Info (PHARMACY MONITORING -- do not chart) 1 each PRN DAILY PRN MC SEE COMMENTS; Start 07/09/19 at 08:00; Status UNV Info (PHARMACY MONITORING -- do not chart) 1 each PRN DAILY PRN MC SEE COMMENTS; Start 07/09/19 at 08:00; Stop 07/11/19 at 08:25; Status DC Sodium Chloride 90 meq/Potassium Chloride 15 meq/ Potassium Phosphate 10 mmol/ Magnesium Sulfate 10 meq/Calcium Gluconate 20 meq/ Multivitamins 10 ml/Chromium/ Copper/Manganese/ Seleni/Zn 0.5 ml/ Total Parenteral Nutrition/Amino Acids/Dextrose/ Fat Emulsion Intravenous 1,512 ml @ 63 mls/hr TPN CONT IV Last administered on 07/09/19at 20:57; Start 07/09/19 at 22:00; Stop 07/10/19 at 21:59; Status DC Sodium Chloride 90 meq/Potassium Chloride 15 meq/ Potassium Phosphate 15 mmol/ Magnesium Sulfate 10 meq/Calcium Gluconate 20 meq/ Multivitamins 10 ml/Chromium/ Copper/Manganese/ Seleni/Zn 0.5 ml/ Total Parenteral Nutrition/Amino Acids/Dextrose/ Fat Emulsion Intravenous 1,512 ml @ 63 mls/hr TPN CONT IV ; Start 07/10/19 at 22:00; Stop 07/10/19 at 14:16; Status DC Sodium Chloride 90 meq/Potassium Chloride 15 meq/ Potassium Phosphate 15 mmol/ Magnesium Sulfate 10 meq/Calcium Gluconate 20 meq/ Multivitamins 10 ml/Chromium/ Copper/Manganese/ Seleni/Zn 0.5 ml/ Total Parenteral Nutrition/Amino Acids/Dextrose/ Fat Emulsion Intravenous 1,200 ml @ 50 mls/hr TPN CONT IV ; Start 07/10/19 at 22:00; Stop 07/10/19 at 14:17; Status DC Sodium Chloride 90 meq/Potassium Chloride 15 meq/ Potassium Phosphate 10 mmol/ Magnesium Sulfate 10 meq/Calcium Gluconate 20 meq/ Multivitamins 10 ml/Chromium/ Copper/Manganese/ Seleni/Zn 0.5 ml/ Total Parenteral Nutrition/Amino Acids/Dextrose/ Fat Emulsion Intravenous 1,200 ml @ 50 mls/hr TPN CONT IV Last administered on 07/10/19at 23:29; Start 07/10/19 at 22:00; Stop 07/11/19 at 21:59; Status DC Sodium Chloride 1,000 ml @ 1,000 mls/hr Q1H PRN IV hypotension; Start 07/11/19 at 07:28; Stop 07/11/19 at 13:27; Status DC Albumin Human 200 ml @ 200 mls/hr 1X ONCE IV Last administered on 07/11/19at 08:51; Start 07/11/19 at 07:30; Stop 07/11/19 at 08:29; Status DC Diphenhydramine HCl (Benadryl) 25 mg 1X PRN PRN IV ITCHING; Start 07/11/19 at 07:30; Stop 07/12/19 at 07:29; Status DC Diphenhydramine HCl (Benadryl) 25 mg 1X PRN PRN IV ITCHING; Start 07/11/19 at 07:30; Stop 07/12/19 at 07:29; Status DC Sodium Chloride 1,000 ml @ 400 mls/hr Q2H30M PRN IV PATENCY; Start 07/11/19 at 07:28; Stop 07/11/19 at 19:27; Status DC Info (PHARMACY MONITORING -- do not chart) 1 each PRN DAILY PRN MC SEE COMMENTS; Start 07/11/19 at 07:30; Stop 07/22/19 at 13:01; Status DC Metronidazole 100 ml @ 100 mls/hr Q6HRS IV Last administered on 07/27/19at 06:26; Start 07/11/19 at 08:30; Stop 07/27/19 at 09:58; Status DC Micafungin Sodium 100 mg/Dextrose 100 ml @ 100 mls/hr Q24H IV Last administered on 08/18/19at 08:18; Start 07/11/19 at 09:00; Stop 08/18/19 at 20:58; Status DC Propofol 0 ml @ As Directed STK-MED ONCE IV ; Start 07/11/19 at 07:53; Stop 07/11/19 at 07:53; Status DC Etomidate (Amidate) 20 mg STK-MED ONCE IV ; Start 07/11/19 at 07:53; Stop 07/11/19 at 07:54; Status DC Midazolam HCl (Versed) 5 mg STK-MED ONCE .ROUTE ; Start 07/11/19 at 07:57; Stop 07/11/19 at 07:57; Status DC Fentanyl Citrate 30 ml @ 0 mls/hr CONT PRN IV SEE PROTOCOL Last administered on 08/05/19at 06:12; Start 07/11/19 at 08:15; Stop 08/05/19 at 09:19; Status DC Artificial Tears (Artificial Tears) 1 drop PRN Q1HR PRN OU DRY EYE, 1st choice; Start 07/11/19 at 08:15; Stop 08/17/19 at 05:31; Status DC Midazolam HCl 50 mg/Sodium Chloride 50 ml @ 0 mls/hr CONT PRN IV SEE PROTOCOL Last administered on 07/14/19at 22:39; Start 07/11/19 at 08:15; Stop 07/16/19 at 15:59; Status DC Etomidate (Amidate) 8 mg 1X ONCE IV Last administered on 07/11/19at 08:33; Start 07/11/19 at 08:30; Stop 07/11/19 at 08:31; Status DC Succinylcholine Chloride (Anectine) 120 mg 1X ONCE IV Last administered on 07/11/19at 08:34; Start 07/11/19 at 08:30; Stop 07/11/19 at 08:31; Status DC Midazolam HCl (Versed) 5 mg 1X ONCE IV ; Start 07/11/19 at 08:30; Stop 07/11/19 at 08:31; Status DC Potassium Chloride 15 meq/ Bicarbonate Dialysis Soln w/ out KCl 5,007.5 ml @ 1,000 mls/ hr Q5H1M IV Last administered on 07/12/19at 11:11; Start 07/11/19 at 12:00; Stop 07/12/19 at 11:15; Status DC Potassium Chloride 15 meq/ Bicarbonate Dialysis Soln w/ out KCl 5,007.5 ml @ 1,000 mls/ hr Q5H1M IV Last administered on 07/12/19at 11:12; Start 07/11/19 at 12:00; Stop 07/12/19 at 11:17; Status DC Potassium Chloride 15 meq/ Bicarbonate Dialysis Soln w/ out KCl 5,007.5 ml @ 1,000 mls/ hr Q5H1M IV Last administered on 07/12/19at 11:11; Start 07/11/19 at 12:00; Stop 07/12/19 at 11:19; Status DC Sodium Chloride 90 meq/Potassium Chloride 15 meq/ Potassium Phosphate 10 mmol/ Magnesium Sulfate 10 meq/Calcium Gluconate 20 meq/ Multivitamins 10 ml/Chromium/ Copper/Manganese/ Seleni/Zn 0.5 ml/ Total Parenteral Nutrition/Amino Acids/Dextrose/ Fat Emulsion Intravenous 1,400 ml @ 58.333 mls/ hr TPN CONT IV Last administered on 07/11/19at 21:42; Start 07/11/19 at 22:00; Stop 07/12/19 at 21:59; Status DC Heparin Sodium (Porcine) (Heparin Sodium) 5,000 unit Q8HRS SQ Last administered on 07/16/19at 05:55; Start 07/11/19 at 15:00; Stop 07/16/19 at 13:28; Status DC Meropenem 500 mg/ Sodium Chloride 50 ml @ 100 mls/hr Q6HRS IV Last administered on 07/13/19at 06:00; Start 07/12/19 at 09:00; Stop 07/13/19 at 07:29; Status DC Potassium Phosphate 20 mmol/ Sodium Chloride 106.6667 ml @ 51.667 m... 1X ONCE IV Last administered on 07/12/19at 11:22; Start 07/12/19 at 10:15; Stop 07/12/19 at 12:18; Status DC Acetaminophen (Tylenol Supp) 650 mg PRN Q6HRS PRN [place] MILD PAIN / TEMP > 100.3'F Last administered on 11/12/19at 19:52; Start 07/12/19 at 10:30 Potassium Chloride/Water 100 ml @ 100 mls/hr Q1H IV Last administered on 07/12/19at 12:12; Start 07/12/19 at 11:00; Stop 07/12/19 at 12:59; Status DC Potassium Chloride 20 meq/ Bicarbonate Dialysis Soln w/ out KCl 5,010 ml @ 1,000 mls/hr Q5H1M IV Last administered on 07/13/19at 08:48; Start 07/12/19 at 12:00; Stop 07/13/19 at 13:03; Status DC Potassium Chloride 20 meq/ Bicarbonate Dialysis Soln w/ out KCl 5,010 ml @ 1,000 mls/hr Q5H1M IV Last administered on 07/17/19at 14:52; Start 07/12/19 at 11:30; Stop 07/17/19 at 19:59; Status DC Potassium Chloride 20 meq/ Bicarbonate Dialysis Soln w/ out KCl 5,010 ml @ 1,000 mls/hr Q5H1M IV Last administered on 07/17/19at 14:53; Start 07/12/19 at 11:30; Stop 07/17/19 at 19:59; Status DC Sodium Chloride 90 meq/Potassium Chloride 15 meq/ Potassium Phosphate 15 mmol/ Magnesium Sulfate 10 meq/Calcium Gluconate 15 meq/ Multivitamins 10 ml/Chromium/ Copper/Manganese/ Seleni/Zn 0.5 ml/ Total Parenteral Nutrition/Amino Acids/Dextrose/ Fat Emulsion Intravenous 1,400 ml @ 58.333 mls/ hr TPN CONT IV Last administered on 07/12/19at 22:17; Start 07/12/19 at 22:00; Stop 07/13/19 at 21:59; Status DC Cefepime HCl (Maxipime) 2 gm Q12HR IVP Last administered on 07/26/19at 20:56; Start 07/13/19 at 09:00; Stop 07/27/19 at 09:58; Status DC Daptomycin 500 mg/ Sodium Chloride 50 ml @ 100 mls/hr Q48H IV Last administered on 07/29/19at 09:57; Start 07/13/19 at 08:30; Stop 07/29/19 at 10:07; Status DC Lidocaine HCl (Buffered Lidocaine 1%) 3 ml 1X ONCE INJ Last administered on 07/13/19at 10:27; Start 07/13/19 at 10:30; Stop 07/13/19 at 10:31; Status DC Potassium Phosphate 20 mmol/ Sodium Chloride 106.6667 ml @ 51.667 m... 1X ONCE IV Last administered on 07/13/19at 12:51; Start 07/13/19 at 13:00; Stop 07/13/19 at 15:03; Status DC Sodium Chloride 90 meq/Potassium Chloride 15 meq/ Potassium Phosphate 18 mmol/ Magnesium Sulfate 8 meq/Calcium Gluconate 15 meq/ Multivitamins 10 ml/Chromium/ Copper/Manganese/ Seleni/Zn 0.5 ml/ Total Parenteral Nutrition/Amino Acids/Dextrose/ Fat Emulsion Intravenous 1,400 ml @ 58.333 mls/ hr TPN CONT IV Last administered on 07/13/19at 22:16; Start 07/13/19 at 22:00; Stop 07/14/19 at 21:59; Status DC Potassium Chloride 20 meq/ Bicarbonate Dialysis Soln w/ out KCl 5,010 ml @ 1,000 mls/hr Q5H1M IV Last administered on 07/17/19at 14:54; Start 07/13/19 at 16:00; Stop 07/17/19 at 19:59; Status DC Multi-Ingred Cream/Lotion/Oil/ Oint (Artificial Tears Eye Ointment) 1 ramu PRN Q1HR PRN OU DRY EYE, 2nd choice Last administered on 08/01/19at 08:19; Start 07/13/19 at 17:30; Stop 09/21/19 at 14:39; Status DC Sodium Chloride 90 meq/Potassium Chloride 15 meq/ Potassium Phosphate 18 mmol/ Magnesium Sulfate 8 meq/Calcium Gluconate 15 meq/ Multivitamins 10 ml/Chromium/ Copper/Manganese/ Seleni/Zn 0.5 ml/ Total Parenteral Nutrition/Amino Acids/Dextrose/ Fat Emulsion Intravenous 1,400 ml @ 58.333 mls/ hr TPN CONT IV Last administered on 07/14/19at 22:00; Start 07/14/19 at 22:00; Stop 07/15/19 at 21:59; Status DC Albumin Human 500 ml @ 125 mls/hr 1X ONCE IV ; Start 07/14/19 at 14:15; Stop 07/14/19 at 18:14; Status DC Sodium Chloride 90 meq/Potassium Chloride 15 meq/ Potassium Phosphate 18 mmol/ Magnesium Sulfate 8 meq/Calcium Gluconate 15 meq/ Multivitamins 10 ml/Chromium/ Copper/Manganese/ Seleni/Zn 0.5 ml/ Insulin Human Regular 10 unit/ Total Parenteral Nutrition/Amino Acids/Dextrose/ Fat Emulsion Intravenous 1,400 ml @ 58.333 mls/ hr TPN CONT IV Last administered on 07/15/19at 21:43; Start at 22:00; Stop 07/16/19 at 21:59; Status DC Lidocaine HCl (Buffered Lidocaine 1%) 3 ml STK-MED ONCE .ROUTE ; Start 07/13/19 at 10:00; Stop 07/15/19 at 13:57; Status DC Midazolam HCl 100 mg/Sodium Chloride 100 ml @ 7 mls/hr CONT PRN IV SEE PROTOCOL Last administered on 07/27/19at 15:35; Start 07/16/19 at 16:00; Stop 09/21/19 at 14:38; Status DC Sodium Chloride 90 meq/Potassium Chloride 15 meq/ Potassium Phosphate 18 mmol/ Magnesium Sulfate 8 meq/Calcium Gluconate 15 meq/ Multivitamins 10 ml/Chromium/ Copper/Manganese/ Seleni/Zn 0.5 ml/ Insulin Human Regular 15 unit/ Total Parenteral Nutrition/Amino Acids/Dextrose/ Fat Emulsion Intravenous 1,400 ml @ 58.333 mls/ hr TPN CONT IV Last administered on 07/16/19at 20:34; Start 07/16/19 at 22:00; Stop 07/17/19 at 21:59; Status DC Info (Icu Electrolyte Protocol) 1 ea CONT PRN PRN MC PER PROTOCOL; Start 07/17/19 at 13:15 Sodium Chloride 90 meq/Potassium Chloride 15 meq/ Potassium Phosphate 18 mmol/ Magnesium Sulfate 8 meq/Calcium Gluconate 15 meq/ Multivitamins 10 ml/Chromium/ Copper/Manganese/ Seleni/Zn 0.5 ml/ Insulin Human Regular 15 unit/ Total Parenteral Nutrition/Amino Acids/Dextrose/ Fat Emulsion Intravenous 1,400 ml @ 58.333 mls/ hr TPN CONT IV Last administered on 07/17/19at 22:05; Start 07/17/19 at 22:00; Stop 07/18/19 at 21:59; Status DC Potassium Chloride 15 meq/ Bicarbonate Dialysis Soln w/ out KCl 5,007.5 ml @ 1,000 mls/ hr Q5H1M IV Last administered on 07/20/19at 18:14; Start 07/17/19 at 20:00; Stop 07/21/19 at 13:08; Status DC Potassium Chloride 15 meq/ Bicarbonate Dialysis Soln w/ out KCl 5,007.5 ml @ 1,000 mls/ hr Q5H1M IV Last administered on 07/20/19at 18:14; Start 07/17/19 at 20:00; Stop 07/21/19 at 13:08; Status DC Potassium Chloride 15 meq/ Bicarbonate Dialysis Soln w/ out KCl 5,007.5 ml @ 1,000 mls/ hr Q5H1M IV Last administered on 07/20/19at 18:14; Start 07/17/19 at 20:00; Stop 07/21/19 at 13:08; Status DC Iohexol (Omnipaque 240 Mg/ml) 30 ml 1X ONCE PO Last administered on 07/18/19at 11:30; Start 07/18/19 at 11:30; Stop 07/18/19 at 11:33; Status DC Info (CONTRAST GIVEN -- Rx MONITORING) 1 each PRN DAILY PRN MC SEE COMMENTS; Start 07/18/19 at 11:45; Stop 07/20/19 at 11:44; Status DC Sodium Chloride 90 meq/Potassium Chloride 15 meq/ Potassium Phosphate 18 mmol/ Magnesium Sulfate 8 meq/Calcium Gluconate 15 meq/ Multivitamins 10 ml/Chromium/ Copper/Manganese/ Seleni/Zn 0.5 ml/ Insulin Human Regular 15 unit/ Total Pa renteral Nutrition/Amino Acids/Dextrose/ Fat Emulsion Intravenous 1,400 ml @ 58.333 mls/ hr TPN CONT IV Last administered on 07/18/19at 21:47; Start 07/18/19 at 22:00; Stop 07/19/19 at 21:59; Status DC Sodium Chloride 90 meq/Potassium Chloride 15 meq/ Potassium Phosphate 18 mmol/ Magnesium Sulfate 8 meq/Calcium Gluconate 15 meq/ Multivitamins 10 ml/Chromium/ Copper/Manganese/ Seleni/Zn 0.5 ml/ Insulin Human Regular 20 unit/ Total Parenteral Nutrition/Amino Acids/Dextrose/ Fat Emulsion Intravenous 1,400 ml @ 58.333 mls/ hr TPN CONT IV Last administered on 07/19/19at 21:36; Start 07/19/19 at 22:00; Stop 07/20/19 at 21:59; Status DC Alteplase, Recombinant (Cathflo For Central Catheter Clearance) 1 mg 1X ONCE INT CAT Last administered on 07/19/19at 20:03; Start 07/19/19 at 19:30; Stop 07/19/19 at 19:46; Status DC Alteplase, Recombinant (Cathflo For Central Catheter Clearance) 1 mg 1X ONCE INT CAT Last administered on 07/19/19at 22:05; Start 07/19/19 at 22:00; Stop 07/19/19 at 22:01; Status DC Sodium Chloride 90 meq/Potassium Chloride 15 meq/ Potassium Phosphate 18 mmol/ Magnesium Sulfate 8 meq/Calcium Gluconate 15 meq/ Multivitamins 10 ml/Chromium/ Copper/Manganese/ Seleni/Zn 0.5 ml/ Insulin Human Regular 20 unit/ Total Parenteral Nutrition/Amino Acids/Dextrose/ Fat Emulsion Intravenous 1,400 ml @ 58.333 mls/ hr TPN CONT IV Last administered on 07/20/19at 21:30; Start 07/20/19 at 22:00; Stop 07/21/19 at 21:59; Status DC Dexmedetomidine HCl 400 mcg/ Sodium Chloride 100 ml @ 0 mls/hr CONT PRN IV ANXIETY / AGITATION Last administered on 09/17/19at 12:57; Start 07/21/19 at 08:15; Stop 09/17/19 at 18:31; Status DC Sodium Chloride 500 ml @ 500 mls/hr 1X PRN PRN IV ELEVATED BP, SEE COMMENTS; Start 07/21/19 at 08:15 Atropine Sulfate (ATROPINE 0.5mg SYRINGE) 0.5 mg PRN Q5MIN PRN IV SEE COMMENTS; Start 07/21/19 at 08:15 Furosemide (Lasix) 20 mg 1X ONCE IVP Last administered on 07/21/19at 08:19; Start 07/21/19 at 08:15; Stop 07/21/19 at 08:16; Status DC Lidocaine HCl (Buffered Lidocaine 1%) 3 ml STK-MED ONCE .ROUTE ; Start 07/21/19 at 08:39; Stop 07/21/19 at 08:39; Status DC Lidocaine HCl (Buffered Lidocaine 1%) 6 ml 1X ONCE INJ Last administered on 07/21/19at 09:05; Start 07/21/19 at 09:00; Stop 07/21/19 at 09:06; Status DC Sodium Chloride 90 meq/Potassium Chloride 15 meq/ Potassium Phosphate 18 mmol/ Magnesium Sulfate 8 meq/Calcium Gluconate 15 meq/ Multivitamins 10 ml/Chromium/ Copper/Manganese/ Seleni/Zn 0.5 ml/ Insulin Human Regular 20 unit/ Total Parenteral Nutrition/Amino Acids/Dextrose/ Fat Emulsion Intravenous 1,400 ml @ 58.333 mls/ hr TPN CONT IV Last administered on 07/21/19at 22:45; Start 07/21/19 at 22:00; Stop 07/22/19 at 21:59; Status DC Sodium Chloride 1,000 ml @ 1,000 mls/hr Q1H PRN IV hypotension; Start 07/22/19 at 07:30; Stop 07/22/19 at 13:29; Status DC Albumin Human 200 ml @ 200 mls/hr 1X PRN PRN IV Hypotension Last administered on 07/22/19at 09:36; Start 07/22/19 at 07:30; Stop 07/22/19 at 13:29; Status DC Sodium Chloride (Normal Saline Flush) 10 ml 1X PRN PRN IV AP catheter pack; Start 07/22/19 at 07:30; Stop 07/22/19 at 21:29; Status DC Sodium Chloride (Normal Saline Flush) 10 ml 1X PRN PRN IV MANAGEMENT RETAIL INTERN catheter pack; Start 07/22/19 at 07:30; Stop 07/23/19 at 07:29; Status DC Sodium Chloride 1,000 ml @ 400 mls/hr Q2H30M PRN IV PATENCY; Start 07/22/19 at 07:30; Stop 07/22/19 at 19:29; Status DC Info (PHARMACY MONITORING -- do not chart) 1 each PRN DAILY PRN MC SEE COMMENTS; Start 07/22/19 at 07:30; Stop 07/22/19 at 13:02; Status DC Info (PHARMACY MONITORING -- do not chart) 1 each PRN DAILY PRN MC SEE COMMENTS; Start 07/22/19 at 07:30; Stop 07/24/19 at 12:45; Status DC Sodium Chloride 90 meq/Potassium Chloride 15 meq/ Potassium Phosphate 10 mmol/ Magnesium Sulfate 8 meq/Calcium Gluconate 15 meq/ Multivitamins 10 ml/Chromium/ Copper/Manganese/ Seleni/Zn 0.5 ml/ Insulin Human Regular 25 unit/ Total Parenteral Nutrition/Amino Acids/Dextrose/ Fat Emulsion Intravenous 1,400 ml @ 58.333 mls/ hr TPN CONT IV Last administered on 07/22/19at 22:19; Start 07/22/19 at 22:00; Stop 07/23/19 at 21:59; Status DC Heparin Sodium (Porcine) (Heparin Sodium) 5,000 unit Q12HR SQ Last administered on 08/14/19at 08:59; Start 07/22/19 at 21:00; Stop 08/14/19 at 10:05; Status DC Ondansetron HCl (Zofran) 4 mg PRN Q6HRS PRN IV NAUSEA/VOMITING; Start 07/25/19 at 07:00; Stop 07/26/19 at 06:59; Status DC Fentanyl Citrate (Fentanyl 2ml Vial) 25 mcg PRN Q5MIN PRN IV MILD PAIN 1-3; Start 07/25/19 at 07:00; Stop 07/26/19 at 06:59; Status DC Fentanyl Citrate (Fentanyl 2ml Vial) 50 mcg PRN Q5MIN PRN IV MODERATE TO SEVERE PAIN; Start 07/25/19 at 07:00; Stop 07/26/19 at 06:59; Status DC Ringer's Solution 1,000 ml @ 30 mls/hr Q24H IV ; Start 07/25/19 at 07:00; Stop 07/25/19 at 18:59; Status DC Lidocaine HCl (Xylocaine-Mpf 1% 2ml Vial) 2 ml PRN 1X PRN ID PRIOR TO IV START; Start 07/25/19 at 07:00; Stop 07/26/19 at 06:59; Status DC Prochlorperazine Edisylate (Compazine) 5 mg PACU PRN PRN IV NAUSEA, MRX1; Start 07/25/19 at 07:00; Stop 07/26/19 at 06:59; Status DC Sodium Chloride 1,000 ml @ 1,000 mls/hr Q1H PRN IV hypotension; Start 07/23/19 at 09:10; Stop 07/23/19 at 15:09; Status DC Albumin Human 200 ml @ 200 mls/hr 1X PRN PRN IV Hypotension Last administered on 07/23/19at 10:10; Start 07/23/19 at 09:15; Stop 07/23/19 at 15:14; Status DC Sodium Chloride 1,000 ml @ 400 mls/hr Q2H30M PRN IV PATENCY; Start 07/23/19 at 09:10; Stop 07/23/19 at 21:09; Status DC Info (PHARMACY MONITORING -- do not chart) 1 each PRN DAILY PRN MC SEE COMMENTS; Start 07/23/19 at 09:15; Stop 07/24/19 at 12:45; Status DC Info (PHARMACY MONITORING -- do not chart) 1 each PRN DAILY PRN MC SEE COMMENTS; Start 07/23/19 at 09:15; Stop 07/24/19 at 12:45; Status DC Sodium Chloride 90 meq/Potassium Chloride 15 meq/ Potassium Phosphate 10 mmol/ Magnesium Sulfate 8 meq/Calcium Gluconate 15 meq/ Multivitamins 10 ml/Chromium/ Copper/Manganese/ Seleni/Zn 0.5 ml/ Insulin Human Regular 25 unit/ Total Parenteral Nutrition/Amino Acids/Dextrose/ Fat Emulsion Intravenous 1,400 ml @ 58.333 mls/ hr TPN CONT IV Last administered on 07/23/19at 22:10; Start 07/23/19 at 22:00; Stop 07/24/19 at 21:59; Status DC Magnesium Sulfate 50 ml @ 25 mls/hr PRN DAILY PRN IV for Mag < 1.7 on am labs Last administered on 10/06/19at 10:57; Start 07/24/19 at 09:15 Sodium Chloride 90 meq/Potassium Chloride 15 meq/ Potassium Phosphate 10 mmol/ Magnesium Sulfate 8 meq/Calcium Gluconate 15 meq/ Multivitamins 10 ml/Chromium/ Copper/Manganese/ Seleni/Zn 0.5 ml/ Insulin Human Regular 25 unit/ Total Parenteral Nutrition/Amino Acids/Dextrose/ Fat Emulsion Intravenous 1,400 ml @ 58.333 mls/ hr TPN CONT IV Last administered on 07/24/19at 21:20; Start 07/24/19 at 22:00; Stop 07/25/19 at 21:59; Status DC Sodium Chloride 1,000 ml @ 1,000 mls/hr Q1H PRN IV hypotension; Start 07/24/19 at 12:23; Stop 07/24/19 at 18:22; Status DC Albumin Human 200 ml @ 200 mls/hr 1X ONCE IV Last administered on 07/24/19at 13:34; Start 07/24/19 at 12:30; Stop 07/24/19 at 13:29; Status DC Diphenhydramine HCl (Benadryl) 25 mg 1X PRN PRN IV ITCHING; Start 07/24/19 at 12:30; Stop 07/25/19 at 12:29; Status DC Diphenhydramine HCl (Benadryl) 25 mg 1X PRN PRN IV ITCHING; Start 07/24/19 at 12:30; Stop 07/25/19 at 12:29; Status DC Info (PHARMACY MONITORING -- do not chart) 1 each PRN DAILY PRN MC SEE PIPE TS; Start 07/24/19 at 12:30; Status Cancel Bupivacaine HCl/ Epinephrine Bitart (Sensorcain-Epi 0.5%-1:[id number] Mpf) 30 ml STK-MED ONCE .ROUTE Last administered on 07/25/19at 11:44; Start 07/25/19 at 11:00; Stop 07/25/19 at 11:01; Status DC Cellulose (Surgicel Fibrillar 1x2) 1 each STK-MED ONCE .ROUTE ; Start 07/25/19 at 11:00; Stop 07/25/19 at 11:01; Status DC Sodium Chloride 90 meq/Potassium Chloride 15 meq/ Potassium Phosphate 10 mmol/ Magnesium Sulfate 12 meq/Calcium Gluconate 15 meq/ Multivitamins 10 ml/Chromium/ Copper/Manganese/ Seleni/Zn 0.5 ml/ Insulin Human Regular 25 unit/ Total Parenteral Nutrition/Amino Acids/Dextrose/ Fat Emulsion Intravenous 1,400 ml @ 58.333 mls/ hr TPN CONT IV Last administered on 07/25/19at 22:24; Start 07/25/19 at 22:00; Stop 07/26/19 at 21:59; Status DC Propofol 20 ml @ As Directed STK-MED ONCE IV ; Start 07/25/19 at 11:07; Stop 07/25/19 at 11:07; Status DC Cellulose (Surgicel Hemostat 4x8) 1 each STK-MED ONCE .ROUTE Last administered on 07/25/19at 11:44; Start 07/25/19 at 11:55; Stop 07/25/19 at 11:56; Status DC Sevoflurane (Ultane) 60 ml STK-MED ONCE IH ; Start 07/25/19 at 12:46; Stop 07/25/19 at 12:46; Status DC Sodium Chloride 1,000 ml @ 1,000 mls/hr Q1H PRN IV hypotension; Start 07/25/19 at 13:51; Stop 07/25/19 at 19:50; Status DC Albumin Human 200 ml @ 200 mls/hr 1X PRN PRN IV Hypotension Last administered on 07/25/19at 14:51; Start 07/25/19 at 14:00; Stop 07/25/19 at 19:59; Status DC Diphenhydramine HCl (Benadryl) 25 mg 1X PRN PRN IV ITCHING; Start 07/25/19 at 14:00; Stop 07/26/19 at 13:59; Status DC Diphenhydramine HCl (Benadryl) 25 mg 1X PRN PRN IV ITCHING; Start 07/25/19 at 14:00; Stop 07/26/19 at 13:59; Status DC Sodium Chloride 1,000 ml @ 400 mls/hr Q2H30M PRN IV PATENCY; Start 07/25/19 at 13:51; Stop 07/26/19 at 01:50; Status DC Info (PHARMACY MONITORING -- do not chart) 1 each PRN DAILY PRN MC SEE COMMENTS; Start 07/25/19 at 14:00; Stop 07/28/19 at 08:16; Status DC Heparin Sodium (Porcine) (Hep Lock Adult) 500 unit STK-MED ONCE IVP ; Start 07/26/19 at 09:29; Stop 07/26/19 at 09:30; Status DC Sodium Chloride 1,000 ml @ 1,000 mls/hr Q1H PRN IV hypotension; Start 07/26/19 at 10:43; Stop 07/26/19 at 16:42; Status DC Sodium Chloride 1,000 ml @ 400 mls/hr Q2H30M PRN IV PATENCY; Start 07/26/19 at 10:43; Stop 07/26/19 at 22:42; Status DC Info (PHARMACY MONITORING -- do not chart) 1 each PRN DAILY PRN MC SEE COMMENTS; Start 07/26/19 at 10:45; Status UNV Info (PHARMACY MONITORING -- do not chart) 1 each PRN DAILY PRN MC SEE COMMENTS; Start 07/26/19 at 10:45; Status UNV Sodium Chloride 90 meq/Potassium Chloride 15 meq/ Magnesium Sulfate 12 meq/Calcium Gluconate 15 meq/ Multivitamins 10 ml/Chromium/ Copper/Manganese/ Seleni/Zn 0.5 ml/ Insulin Human Regular 25 unit/ Total Parenteral Nutrition/Amino Acids/Dextrose/ Fat Emulsion Intravenous 1,400 ml @ 58.333 mls/ hr TPN CONT IV Last administered on 07/26/19at 22:13; Start 07/26/19 at 22:00; Stop 07/27/19 at 21:59; Status DC Sodium Chloride 1,000 ml @ 1,000 mls/hr Q1H PRN IV hypotension; Start 07/27/19 at 07:50; Stop 07/27/19 at 13:49; Status DC Albumin Human 200 ml @ 200 mls/hr 1X ONCE IV ; Start 07/27/19 at 08:00; Stop 07/27/19 at 08:53; Status DC Diphenhydramine HCl (Benadryl) 25 mg 1X PRN PRN IV ITCHING; Start 07/27/19 at 08:00; Stop 07/28/19 at 07:59; Status DC Diphenhydramine HCl (Benadryl) 25 mg 1X PRN PRN IV ITCHING; Start 07/27/19 at 08:00; Stop 07/28/19 at 07:59; Status DC Info (PHARMACY MONITORING -- do not chart) 1 each PRN DAILY PRN MC SEE COMMENTS; Start 07/27/19 at 08:00; Stop 07/28/19 at 08:16; Status DC Albumin Human 50 ml @ 50 mls/hr 1X ONCE IV ; Start 07/27/19 at 08:53; Stop 07/27/19 at 08:56; Status DC Albumin Human 200 ml @ 50 mls/hr PRN 1X PRN IV HYPOTENSION Last administered on 08/02/19at 11:54; Start 07/27/19 at 09:00; Stop 09/08/19 at 11:14; Status DC Meropenem 500 mg/ Sodium Chloride 50 ml @ 100 mls/hr Q12H IV Last administered on 08/16/19at 10:45; Start 07/27/19 at 10:00; Stop 08/16/19 at 12:37; Status DC Sodium Chloride 90 meq/Magnesium Sulfate 12 meq/ Calcium Gluconate 15 meq/ Multivitamins 10 ml/Chromium/ Copper/Manganese/ Seleni/Zn 0.5 ml/ Insulin Human Regular 25 unit/ Total Parenteral Nutrition/Amino Acids/Dextrose/ Fat Emulsion Intravenous 1,400 ml @ 58.333 mls/ hr TPN CONT IV Last administered on 07/27/19at 21:41; Start 07/27/19 at 22:00; Stop 07/28/19 at 21:59; Status DC Sodium Chloride 1,000 ml @ 1,000 mls/hr Q1H PRN IV hypotension; Start 07/28/19 at 07:58; Stop 07/28/19 at 13:57; Status DC Albumin Human 200 ml @ 200 mls/hr 1X PRN PRN IV Hypotension Last administered on 07/28/19at 09:30; Start 07/28/19 at 08:00; Stop 07/28/19 at 13:59; Status DC Sodium Chloride 1,000 ml @ 400 mls/hr Q2H30M PRN IV PATENCY; Start 07/28/19 at 07:58; Stop 07/28/19 at 19:57; Status DC Info (PHARMACY MONITORING -- do not chart) 1 each PRN DAILY PRN MC SEE COMMENTS; Start 07/28/19 at 08:00; Status Cancel Info (PHARMACY MONITORING -- do not chart) 1 each PRN DAILY PRN MC SEE COMMENTS; Start 07/28/19 at 08:15; Status UNV Sodium Chloride 90 meq/Potassium Phosphate 5 mmol/ Magnesium Sulfate 12 meq/Calcium Gluconate 15 meq/ Multivitamins 10 ml/Chromium/ Copper/Manganese/ Seleni/Zn 0.5 ml/ Insulin Human Regular 30 unit/ Total Parenteral Nutrition/Amino Acids/Dextrose/ Fat Emulsion Intravenous 1,400 ml @ 58.333 mls/ hr TPN CONT IV Last administered on 07/28/19at 22:08; Start 07/28/19 at 22:00; Stop 07/29/19 at 21:59; Status DC Linezolid/Dextrose 300 ml @ 300 mls/hr Q12HR IV Last administered on 08/08/19at 20:40; Start 07/29/19 at 11:00; Stop 08/09/19 at 08:10; Status DC Sodium Chloride 90 meq/Potassium Phosphate 15 mmol/ Magnesium Sulfate 12 meq/Calcium Gluconate 15 meq/ Multivitamins 10 ml/Chromium/ Copper/Manganese/ Seleni/Zn 0.5 ml/ Insulin Human Regular 30 unit/ Total Parenteral Nutrition/Amino Acids/Dextrose/ Fat Emulsion Intravenous 1,400 ml @ 58.333 mls/ hr TPN CONT IV Last administered on 07/29/19at 21:49; Start 07/29/19 at 22:00; Stop 07/30/19 at 21:59; Status DC Sodium Chloride 90 meq/Potassium Phosphate 15 mmol/ Magnesium Sulfate 12 meq/Calcium Gluconate 15 meq/ Multivitamins 10 ml/Chromium/ Copper/Manganese/ Seleni/Zn 0.5 ml/ Insulin Human Regular 40 unit/ Total Parenteral Nutrition/Amino Acids/Dextrose/ Fat Emulsion Intravenous 1,400 ml @ 58.333 mls/ hr TPN CONT IV Last administered on 07/30/19at 21:21; Start 07/30/19 at 22:00; Stop 07/31/19 at 21:59; Status DC Sodium Chloride 1,000 ml @ 1,000 mls/hr Q1H PRN IV hypotension; Start 07/30/19 at 13:26; Stop 07/30/19 at 19:25; Status DC Albumin Human 200 ml @ 200 mls/hr 1X PRN PRN IV Hypotension Last administered on 07/30/19at 15:00; Start 07/30/19 at 13:30; Stop 07/30/19 at 19:29; Status DC Sodium Chloride (Normal Saline Flush) 10 ml 1X PRN PRN IV AP catheter pack; Start 07/30/19 at 13:30; Stop 07/31/19 at 13:29; Status DC Sodium Chloride (Normal Saline Flush) 10 ml 1X PRN PRN IV MANAGEMENT RETAIL INTERN catheter pack; Start 07/30/19 at 13:30; Stop 07/31/19 at 13:29; Status DC Sodium Chloride 1,000 ml @ 400 mls/hr Q2H30M PRN IV PATENCY; Start 07/30/19 at 13:26; Stop 07/31/19 at 01:25; Status DC Info (PHARMACY MONITORING -- do not chart) 1 each PRN DAILY PRN MC SEE COMMENTS; Start 07/30/19 at 13:30; Stop 07/30/19 at 13:33; Status DC Info (PHARMACY MONITORING -- do not chart) 1 each PRN DAILY PRN MC SEE COMMENTS; Start 07/30/19 at 13:30; Stop 07/30/19 at 13:34; Status DC Sodium Chloride 90 meq/Potassium Phosphate 19 mmol/ Magnesium Sulfate 12 meq/Calcium Gluconate 15 meq/ Multivitamins 10 ml/Chromium/ Copper/Manganese/ Seleni/Zn 0.5 ml/ Insulin Human Regular 40 unit/ Total Parenteral Nutrition/Amino Acids/Dextrose/ Fat Emulsion Intravenous 1,400 ml @ 58.333 mls/ hr TPN CONT IV Last administered on 07/31/19at 21:54; Start 07/31/19 at 22:00; Stop 08/01/19 at 21:59; Status DC Sodium Chloride 1,000 ml @ 1,000 mls/hr Q1H PRN IV hypotension; Start 08/01/19 at 09:35; Stop 08/01/19 at 15:34; Status DC Albumin Human 200 ml @ 200 mls/hr 1X PRN PRN IV Hypotension; Start 08/01/19 at 09:45; Stop 08/01/19 at 15:44; Status DC Diphenhydramine HCl (Benadryl) 25 mg 1X PRN PRN IV ITCHING; Start 08/01/19 at 09:45; Stop 08/02/19 at 09:44; Status DC Diphenhydramine HCl (Benadryl) 25 mg 1X PRN PRN IV ITCHING; Start 08/01/19 at 09:45; Stop 08/02/19 at 09:44; Status DC Sodium Chloride 1,000 ml @ 400 mls/hr Q2H30M PRN IV PATENCY; Start 08/01/19 at 09:35; Stop 08/01/19 at 21:34; Status DC Info (PHARMACY MONITORING -- do not chart) 1 each PRN DAILY PRN MC SEE COMMENTS; Start 08/01/19 at 09:45; Status Cancel Sodium Chloride 100 meq/Potassium Phosphate 19 mmol/ Magnesium Sulfate 12 me q/Calcium Gluconate 15 meq/ Multivitamins 10 ml/Chromium/ Copper/Manganese/ Seleni/Zn 0.5 ml/ Insulin Human Regular 40 unit/ Potassium Chloride 20 meq/ Total Parenteral Nutrition/Amino Acids/Dextrose/ Fat Emulsion Intravenous 1,400 ml @ 58.333 mls/ hr TPN CONT IV Last administered on 08/01/19at 22:02; Start 08/01/19 at 22:00; Stop 08/02/19 at 21:59; Status DC Furosemide (Lasix) 40 mg 1X ONCE IVP Last administered on 08/01/19at 14:39; Start 08/01/19 at 14:30; Stop 08/01/19 at 14:31; Status DC Metronidazole 100 ml @ 100 mls/hr Q8HRS IV Last administered on 08/09/19at 06:04; Start 08/02/19 at 10:00; Stop 08/09/19 at 08:10; Status DC Sodium Chloride 1,000 ml @ 1,000 mls/hr Q1H PRN IV hypotension; Start 08/02/19 at 08:00; Stop 08/02/19 at 13:59; Status DC Albumin Human 200 ml @ 200 mls/hr 1X PRN PRN IV Hypotension; Start 08/02/19 at 08:00; Stop 08/02/19 at 13:59; Status DC Sodium Chloride 1,000 ml @ 400 mls/hr Q2H30M PRN IV PATENCY; Start 08/02/19 at 08:00; Stop 08/02/19 at 19:59; Status DC Info (PHARMACY MONITORING -- do not chart) 1 each PRN DAILY PRN MC SEE COMMENTS; Start 08/02/19 at 11:30; Status UNV Info (PHARMACY MONITORING -- do not chart) 1 each PRN DAILY PRN MC SEE COMMENTS; Start 08/02/19 at 11:30; Stop 08/04/19 at 12:13; Status DC Sodium Chloride 100 meq/Potassium Phosphate 19 mmol/ Magnesium Sulfate 12 meq/Calcium Gluconate 15 meq/ Multivitamins 10 ml/Chromium/ Copper/Manganese/ Seleni/Zn 0.5 ml/ Insulin Human Regular 40 unit/ Potassium Chloride 20 meq/ Total Parenteral Nutrition/Amino Acids/Dextrose/ Fat Emulsion Intravenous 1,400 ml @ 58.333 mls/ hr TPN CONT IV Last administered on 08/02/19at 21:52; Start 08/02/19 at 22:00; Stop 08/03/19 at 21:59; Status DC Sodium Chloride (Normal Saline Flush) 10 ml QSHIFT PRN IV AFTER MEDS AND BLOOD DRAWS; Start 08/02/19 at 15:00; Stop 08/30/19 at 11:27; Status DC Sodium Chloride (Normal Saline Flush) 10 ml PRN Q5MIN PRN IV AFTER MEDS AND BLOOD DRAWS; Start 08/02/19 at 15:00 Sodium Chloride (Normal Saline Flush) 20 ml PRN Q5MIN PRN IV AFTER MEDS AND BLOOD DRAWS; Start 08/02/19 at 15:00 Sodium Chloride 100 meq/Potassium Phosphate 19 mmol/ Magnesium Sulfate 12 meq/Calcium Gluconate 15 meq/ Multivitamins 10 ml/Chromium/ Copper/Manganese/ Seleni/Zn 0.5 ml/ Insulin Human Regular 40 unit/ Potassium Chloride 20 meq/ Total Parenteral Nutrition/Amino Acids/Dextrose/ Fat Emulsion Intravenous 1,400 ml @ 58.333 mls/ hr TPN CONT IV Last administered on 08/03/19at 21:20; Start 08/03/19 at 22:00; Stop 08/04/19 at 21:59; Status DC Lidocaine HCl (Buffered Lidocaine 1%) 3 ml STK-MED ONCE .ROUTE ; Start 08/03/19 at 13:16; Stop 08/03/19 at 13:16; Status DC Lidocaine HCl (Buffered Lidocaine 1%) 6 ml 1X ONCE INJ Last administered on 08/03/19at 13:45; Start 08/03/19 at 13:30; Stop 08/03/19 at 13:31; Status DC Albumin Human 100 ml @ 100 mls/hr 1X ONCE IV Last administered on 08/03/19at 15:41; Start 08/03/19 at 15:00; Stop 08/03/19 at 15:59; Status DC Albumin Human 50 ml @ 50 mls/hr 1X ONCE IV Last administered on 08/03/19at 15:00; Start 08/03/19 at 15:00; Stop 08/03/19 at 15:59; Status DC Info (PHARMACY MONITORING -- do not chart) 1 each PRN DAILY PRN MC SEE COMMENTS; Start 08/04/19 at 11:30; Status Cancel Info (PHARMACY MONITORING -- do not chart) 1 each PRN DAILY PRN MC SEE COMMENTS; Start 08/04/19 at 11:30; Status UNV Sodium Chloride 100 meq/Potassium Phosphate 10 mmol/ Magnesium Sulfate 12 meq/Calcium Gluconate 15 meq/ Multivitamins 10 ml/Chromium/ Copper/Manganese/ Seleni/Zn 0.5 ml/ Insulin Human Regular 35 unit/ Potassium Chloride 20 meq/ Total Parenteral Nutrition/Amino Acids/Dextrose/ Fat Emulsion Intravenous 1,400 ml @ 58.333 mls/ hr TPN CONT IV Last administered on 08/04/19at 22:10; Start 08/04/19 at 22:00; Stop 08/05/19 at 21:59; Status DC Sodium Chloride 100 meq/Potassium Phosphate 5 mmol/ Magnesium Sulfate 12 meq/Calcium Gluconate 15 meq/ Multivitamins 10 ml/Chromium/ Copper/Manganese/ Seleni/Zn 0.5 ml/ Insulin Human Regular 35 unit/ Potassium Chloride 20 meq/ Total Parenteral Nutrition/Amino Acids/Dextrose/ Fat Emulsion Intravenous 1,400 ml @ 58.333 mls/ hr TPN CONT IV Last administered on 08/05/19at 22:59; Start 08/05/19 at 22:00; Stop 08/06/19 at 21:59; Status DC Sodium Chloride 1,000 ml @ 1,000 mls/hr Q1H PRN IV hypotension; Start 08/06/19 at 08:27; Stop 08/06/19 at 14:26; Status DC Albumin Human 200 ml @ 200 mls/hr 1X PRN PRN IV Hypotension Last administered on 08/06/19at 09:18; Start 08/06/19 at 08:30; Stop 08/06/19 at 14:29; Status DC Sodium Chloride 1,000 ml @ 400 mls/hr Q2H30M PRN IV PATENCY; Start 08/06/19 at 08:27; Stop 08/06/19 at 20:26; Status DC Info (PHARMACY MONITORING -- do not chart) 1 each PRN DAILY PRN MC SEE COMMENTS; Start 08/06/19 at 08:30; Status Cancel Info (PHARMACY MONITORING -- do not chart) 1 each PRN DAILY PRN MC SEE COMMENTS; Start 08/06/19 at 08:30; Stop 08/14/19 at 13:10; Status DC Sodium Chloride 100 meq/Potassium Chloride 40 meq/ Magnesium Sulfate 15 meq/Calcium Gluconate 15 meq/ Multivitamins 10 ml/Chromium/ Copper/Manganese/ Seleni/Zn 0.5 ml/ Insulin Human Regular 35 unit/ Total Parenteral Nutrition /Amino Acids/Dextrose/ Fat Emulsion Intravenous 1,400 ml @ 58.333 mls/ hr TPN CONT IV Last administered on 08/06/19at 22:00; Start 08/06/19 at 22:00; Stop 08/07/19 at 21:59; Status DC Potassium Chloride/Water 100 ml @ 100 mls/hr 1X ONCE IV Last administered on 08/06/19at 17:28; Start 08/06/19 at 14:45; Stop 08/06/19 at 15:44; Status DC Sodium Chloride 100 meq/Potassium Chloride 40 meq/ Magnesium Sulfate 15 meq/Calcium Gluconate 15 meq/ Multivitamins 10 ml/Chromium/ Copper/Manganese/ Seleni/Zn 0.5 ml/ Insulin Human Regular 35 unit/ Total Parenteral Nutrition/Amino Acids/Dextrose/ Fat Emulsion Intravenous 1,400 ml @ 58.333 mls/ hr TPN CONT IV Last administered on 08/07/19at 22:46; Start 08/07/19 at 22:00; Stop 08/08/19 at 21:59; Status DC Sodium Chloride 100 meq/Potassium Chloride 40 meq/ Magnesium Sulfate 20 meq/Calcium Gluconate 15 meq/ Multivitamins 10 ml/Chromium/ Copper/Manganese/ Seleni/Zn 0.5 ml/ Insulin Human Regular 35 unit/ Total Parenteral Nutrition/Amino Acids/Dextrose/ Fat Emulsion Intravenous 1,400 ml @ 58.333 mls/ hr TPN CONT IV Last administered on 08/08/19at 22:31; Start 08/08/19 at 22:00; Stop 08/09/19 at 21:59; Status DC Fentanyl Citrate (Fentanyl 2ml Vial) 50 mcg PRN Q2HR PRN IVP PAIN Last administered on 08/15/19at 13:32; Start 08/08/19 at 21:00; Stop 08/16/19 at 12:53; Status DC Fentanyl Citrate (Fentanyl 2ml Vial) 25 mcg PRN Q2HR PRN IVP PAIN; Start 08/08/19 at 21:00; Stop 08/16/19 at 12:54; Status DC Enoxaparin Sodium (Lovenox 100mg Syringe) 100 mg Q12HR SQ ; Start 08/09/19 at 21:00; Status UNV Amino Acids/ Glycerin/ Electrolytes 1,000 ml @ 75 mls/hr [id number] IV ; Start 08/08/19 at 21:15; Status UNV Sodium Chloride 1,000 ml @ 1,000 mls/hr Q1H PRN IV hypotension; Start 08/09/19 at 07:56; Stop 08/09/19 at 13:55; Status DC Albumin Human 200 ml @ 200 mls/hr 1X PRN PRN IV Hypotension Last administered on 08/09/19at 08:40; Start 08/09/19 at 08:00; Stop 08/09/19 at 13:59; Status DC Sodium Chloride 1,000 ml @ 400 mls/hr Q2H30M PRN IV PATENCY; Start 08/09/19 at 07:56; Stop 08/09/19 at 19:55; Status DC Info (PHARMACY MONITORING -- do not chart) 1 each PRN DAILY PRN MC SEE COMMENTS; Start 08/09/19 at 08:00; Status UNV Info (PHARMACY MONITORING -- do not chart) 1 each PRN DAILY PRN MC SEE COMMENTS; Start 08/09/19 at 08:00; Status UNV Daptomycin 430 mg/ Sodium Chloride 50 ml @ 100 mls/hr Q24H IV Last administered on 08/09/19at 12:35; Start 08/09/19 at 09:00; Stop 08/09/19 at 12:49; Status DC Sodium Chloride 100 meq/Potassium Chloride 40 meq/ Magnesium Sulfate 20 meq/Calcium Gluconate 15 meq/ Multivitamins 10 ml/Chromium/ Copper/Manganese/ Seleni/Zn 0.5 ml/ Insulin Human Regular 35 unit/ Total Parenteral Nutrition/Amino Acids/Dextrose/ Fat Emulsion Intravenous 1,400 ml @ 58.333 mls/ hr TPN CONT IV Last administered on 08/09/19at 21:26; Start 08/09/19 at 22:00; Stop 08/10/19 at 21:59; Status DC Daptomycin 430 mg/ Sodium Chloride 50 ml @ 100 mls/hr Q48H IV ; Start 08/11/19 at 09:00; Stop 08/10/19 at 11:55; Status DC Sodium Chloride 100 meq/Potassium Chloride 40 meq/ Magnesium Sulfate 20 meq/Calcium Gluconate 15 meq/ Multivitamins 10 ml/Chromium/ Copper/Manganese/ Seleni/Zn 0.5 ml/ Insulin Human Regular 35 unit/ Total Parenteral Nutrition/Amino Acids/Dextrose/ Fat Emulsion Intravenous 1,400 ml @ 58.333 mls/ hr TPN CONT IV Last administered on 08/10/19at 22:27; Start 08/10/19 at 22:00; Stop 08/11/19 at 21:59; Status DC Daptomycin 430 mg/ Sodium Chloride 50 ml @ 100 mls/hr Q24H IV Last administered on 08/12/19at 15:07; Start 08/10/19 at 13:00; Stop 08/13/19 at 13:15; Status DC Sodium Chloride 100 meq/Potassium Chloride 40 meq/ Magnesium Sulfate 20 meq/Calcium Gluconate 10 meq/ Multivitamins 10 ml/Chromium/ Copper/Manganese/ Seleni/Zn 0.5 ml/ Insulin Human Regular 35 unit/ Total Parenteral Nutrition/Amino Acids/Dextrose/ Fat Emulsion Intravenous 1,400 ml @ 58.333 mls/ hr TPN CONT IV Last administered on 08/12/19at 00:06; Start 08/11/19 at 22:00; Stop 08/12/19 at 21:59; Status DC Alteplase, Recombinant (Cathflo For Central Catheter Clearance) 1 mg 1X ONCE INT CAT Last administered on 08/12/19at 11:44; Start 08/12/19 at 10:45; Stop 08/12/19 at 10:46; Status DC Ondansetron HCl (Zofran) 4 mg PRN Q6HRS PRN IV NAUSEA/VOMITING; Start 08/15/19 at 07:00; Stop 08/16/19 at 06:59; Status DC Fentanyl Citrate (Fentanyl 2ml Vial) 25 mcg PRN Q5MIN PRN IV MILD PAIN 1-3; Start 08/15/19 at 07:00; Stop 08/16/19 at 06:59; Status DC Fentanyl Citrate (Fentanyl 2ml Vial) 50 mcg PRN Q5MIN PRN IV MODERATE TO SEVERE PAIN Last administered on 08/15/19at 10:17; Start 08/15/19 at 07:00; Stop 08/16/19 at 06:59; Status DC Ringer's Solution 1,000 ml @ 30 mls/hr Q24H IV ; Start 08/15/19 at 07:00; Stop 08/15/19 at 18:59; Status DC Lidocaine HCl (Xylocaine-Mpf 1% 2ml Vial) 2 ml PRN 1X PRN ID PRIOR TO IV START; Start 08/15/19 at 07:00; Stop 08/16/19 at 06:59; Status DC Prochlorperazine Edisylate (Compazine) 5 mg PACU PRN PRN IV NAUSEA, MRX1; Start 08/15/19 at 07:00; Stop 08/16/19 at 06:59; Status DC Sodium Acetate 50 meq/Potassium Acetate 55 meq/ Magnesium Sulfate 20 meq/Calcium Gluconate 10 meq/ Multivitamins 10 ml/Chromium/ Copper/Manganese/ Seleni/Zn 0.5 ml/ Insulin Human Regular 35 unit/ Total Parenteral Nutrition/Amino Acids/ Dextrose/ Fat Emulsion Intravenous 1,400 ml @ 58.333 mls/ hr TPN CONT IV ; Start 08/12/19 at 22:00; Stop 08/12/19 at 14:15; Status DC Sodium Acetate 50 meq/Potassium Acetate 55 meq/ Magnesium Sulfate 20 meq/Calcium Gluconate 10 meq/ Multivitamins 10 ml/Chromium/ Copper/Manganese/ Seleni/Zn 0.5 ml/ Insulin Human Regular 35 unit/ Total Parenteral Nutrition/Amino Acids/Dextrose/ Fat Emulsion Intravenous 1,800 ml @ 75 mls/hr TPN CONT IV Last administered on 08/12/19at 22:38; Start 08/12/19 at 22:00; Stop 08/13/19 at 21:59; Status DC Sodium Chloride 1,000 ml @ 1,000 mls/hr Q1H PRN IV hypotension; Start 08/12/19 at 15:31; Stop 08/12/19 at 21:30; Status DC Diphenhydramine HCl (Benadryl) 25 mg 1X PRN PRN IV ITCHING; Start 08/12/19 at 15:45; Stop 08/13/19 at 15:44; Status DC Diphenhydramine HCl (Benadryl) 25 mg 1X PRN PRN IV ITCHING; Start 08/12/19 at 15:45; Stop 08/13/19 at 15:44; Status DC Sodium Chloride 1,000 ml @ 400 mls/hr Q2H30M PRN IV PATENCY; Start 08/12/19 at 15:31; Stop 08/13/19 at 03:30; Status DC Info (PHARMACY MONITORING -- do not chart) 1 each PRN DAILY PRN MC SEE COMMENTS; Start 08/12/19 at 15:45; Stop 09/13/19 at 14:14; Status DC Sodium Acetate 50 meq/Potassium Acetate 55 meq/ Magnesium Sulfate 20 meq/Calcium Gluconate 10 meq/ Multivitamins 10 ml/Chromium/ Copper/Manganese/ Seleni/Zn 0.5 ml/ Insulin Human Regular 35 unit/ Total Parenteral Nutrition/Amino Acids/D extrose/ Fat Emulsion Intravenous 1,800 ml @ 75 mls/hr TPN CONT IV Last administered on 08/13/19at 22:03; Start 08/13/19 at 22:00; Stop 08/14/19 at 21:59; Status DC Daptomycin 430 mg/ Sodium Chloride 50 ml @ 100 mls/hr Q24H IV Last administered on 08/18/19at 13:00; Start 08/13/19 at 13:00; Stop 08/18/19 at 20:58; Status DC Heparin Sodium (Porcine) 1000 unit/Sodium Chloride 1,001 ml @ 1,001 mls/hr 1X ONCE IRR ; Start 08/15/19 at 06:00; Stop 08/15/19 at 06:59; Status DC Potassium Acetate 55 meq/Magnesium Sulfate 20 meq/ Calcium Gluconate 10 meq/ Multivitamins 10 ml/Chromium/ Copper/Manganese/ Seleni/Zn 0.5 ml/ Insulin Human Regular 35 unit/ Total Parenteral Nutrition/Amino Acids/Dextrose/ Fat Emulsion Intravenous 1,920 ml @ 80 mls/hr TPN CONT IV Last administered on 08/14/19at 22:10; Start 08/14/19 at 22:00; Stop 08/15/19 at 21:59; Status DC Dexamethasone Sodium Phosphate (Decadron) 4 mg STK-MED ONCE .ROUTE ; Start 08/15/19 at 10:56; Stop 08/15/19 at 10:57; Status DC Ondansetron HCl (Zofran) 4 mg STK-MED ONCE .ROUTE ; Start 08/15/19 at 10:56; Stop 08/15/19 at 10:57; Status DC Rocuronium [place] (Zemuron) 50 mg STK-MED ONCE .ROUTE ; Start 08/15/19 at 10:56; Stop 08/15/19 at 10:57; Status DC Fentanyl Citrate (Fentanyl 2ml Vial) 100 mcg STK-MED ONCE .ROUTE ; Start 08/15/19 at 10:56; Stop 08/15/19 at 10:57; Status DC Bupivacaine HCl/ Epinephrine Bitart (Sensorcain-Epi 0.5%-1:412309 Mpf) 30 ml STK-MED ONCE .ROUTE Last administered on 08/15/19at 12:01; Start 08/15/19 at 10:58; Stop 08/15/19 at 10:58; Status DC Cellulose (Surgicel Hemostat 2x14) 1 each STK-MED ONCE .ROUTE ; Start 08/15/19 at 10:58; Stop 08/15/19 at 10:59; Status DC Iohexol (Omnipaque 300 Mg/ml) 50 ml STK-MED ONCE .ROUTE ; Start 08/15/19 at 10:58; Stop 08/15/19 at 10:59; Status DC Cellulose (Surgicel Hemostat 4x8) 1 each STK-MED ONCE .ROUTE ; Start 08/15/19 at 10:58; Stop 08/15/19 at 10:59; Status DC Bisacodyl (Dulcolax Supp) 10 mg STK-MED ONCE .ROUTE ; Start 08/15/19 at 10:59; Stop 08/15/19 at 10:59; Status DC Heparin Sodium (Porcine) 1000 unit/Sodium Chloride 1,001 ml @ 1,001 mls/hr 1X ONCE IRR ; Start 08/15/19 at 12:00; Stop 08/15/19 at 12:59; Status DC Propofol 20 ml @ As Directed STK-MED ONCE IV ; Start 08/15/19 at 11:05; Stop 08/15/19 at 11:05; Status DC Sevoflurane (Ultane) 90 ml STK-MED ONCE IH ; Start 08/15/19 at 11:05; Stop 08/15/19 at 11:05; Status DC Sevoflurane (Ultane) 60 ml STK-MED ONCE IH ; Start 08/15/19 at 12:26; Stop 08/15/19 at 12:27; Status DC Propofol 20 ml @ As Directed STK-MED ONCE IV ; Start 08/15/19 at 12:26; Stop 08/15/19 at 12:27; Status DC Phenylephrine HCl (PHENYLEPHRINE in 0.9% NACL PF) 1 mg STK-MED ONCE IV ; Start 08/15/19 at 12:34; Stop 08/15/19 at 12:34; Status DC Heparin Sodium (Porcine) (Heparin Sodium) 5,000 unit Q12HR SQ Last administered on 08/24/19at 20:57; Start 08/15/19 at 21:00; Stop 08/25/19 at 09:59; Status DC Sodium Chloride (Normal Saline Flush) 3 ml QSHIFT PRN IV AFTER MEDS AND BLOOD DRAWS; Start 08/15/19 at 13:45; Status Cancel Naloxone HCl (Narcan) 0.4 mg PRN Q2MIN PRN IV SEE INSTRUCTIONS Last administered on 09/24/19at 15:15; Start 08/15/19 at 13:45; Stop 10/19/19 at 16:00; Status DC Sodium Chloride 1,000 ml @ 25 mls/hr Q24H IV Last administered on 09/13/19at 13:37; Start 08/15/19 at 13:37; Stop 09/16/19 at 13:09; Status DC Naloxone HCl (Narcan) 0.4 mg PRN Q2MIN PRN IV SEE INSTRUCTIONS; Start 08/15/19 at 14:30; Status UNV Sodium Chloride 1,000 ml @ 25 mls/hr Q24H IV ; Start 08/15/19 at 14:30; Status UNV Hydromorphone HCl 30 ml @ 0 mls/hr CONT PRN PRN IV PER PROTOCOL Last admini stered on 08/20/19at 16:08; Start 08/15/19 at 14:30; Stop 08/22/19 at 08:55; Status DC Potassium Acetate 55 meq/Magnesium Sulfate 20 meq/ Calcium Gluconate 10 meq/ Multivitamins 10 ml/Chromium/ Copper/Manganese/ Seleni/Zn 0.5 ml/ Insulin Human Regular 35 unit/ Total Parenteral Nutrition/Amino Acids/Dextrose/ Fat Emulsion Intravenous 1,920 ml @ 80 mls/hr TPN CONT IV Last administered on 08/15/19at 22:01; Start 08/15/19 at 22:00; Stop 08/16/19 at 21:59; Status DC Bumetanide (Bumex) 2 mg [id number] IV Last administered on 08/19/19at 13:50; Start 08/16/19 at 14:00; Stop 08/20/19 at 14:10; Status DC Meropenem 1 gm/ Sodium Chloride 100 ml @ 200 mls/hr Q8HRS IV Last administered on 09/09/19at 05:53; Start 08/16/19 at 14:00; Stop 09/09/19 at 09:31; Status DC Potassium Acetate 55 meq/Magnesium Sulfate 20 meq/ Calcium Gluconate 10 meq/ Multivitamins 10 ml/Chromium/ Copper/Manganese/ Seleni/Zn 0.5 ml/ Insulin Human Regular 35 unit/ Total Parenteral Nutrition/Amino Acids/Dextrose/ Fat Emulsion Intravenous 1,920 ml @ 80 mls/hr TPN CONT IV Last administered on 08/16/19at 22:02; Start 08/16/19 at 22:00; Stop 08/17/19 at 21:59; Status DC Hydromorphone HCl (Dilaudid Standard CLINICAL RESEARCH SPEC) 12 mg STK-MED ONCE IV ; Start 08/15/19 at 14:35; Stop 08/16/19 at 13:53; Status DC Artificial Tears (Artificial Tears) 1 drop PRN Q15MIN PRN OU DRY EYE Last administered on 10/11/19at 21:17; Start 08/17/19 at 05:30 Hydromorphone HCl (Dilaudid Standard CLINICAL RESEARCH SPEC) 12 mg STK-MED ONCE IV ; Start 08/16/19 at 12:05; Stop 08/17/19 at 09:15; Status DC Potassium Acetate 65 meq/Magnesium Sulfate 20 meq/ Calcium Gluconate 10 meq/ Multivitamins 10 ml/Chromium/ Copper/Manganese/ Seleni/Zn 0.5 ml/ Insulin Human Regular 30 unit/ Total Parenteral Nutrition/Amino Acids/Dextrose/ Fat Emulsion Intravenous 1,920 ml @ 80 mls/hr TPN CONT IV Last administered on 08/17/19at 22:22; Start 08/17/19 at 22:00; Stop 08/18/19 at 21:59; Status DC Cyclobenzaprine HCl (Flexeril) 10 mg PRN Q6HRS PRN PO MUSCLE SPASMS Last administered on 10/28/19at 19:12; Start 08/18/19 at 10:45 Potassium Acetate 55 meq/Magnesium Sulfate 20 meq/ Calcium Gluconate 10 meq/ Multivitamins 10 ml/Chromium/ Copper/Manganese/ Seleni/Zn 0.5 ml/ Insulin Human Regular 30 unit/ Total Parenteral Nutrition/Amino Acids/Dextrose/ Fat Emulsion Intravenous 1,920 ml @ 80 mls/hr TPN CONT IV Last administered on 08/19/19at 01:00; Start 08/18/19 at 22:00; Stop 08/19/19 at 21:59; Status DC Magnesium Sulfate 50 ml @ 25 mls/hr 1X ONCE IV Last administered on 08/18/19at 17:18; Start 08/18/19 at 12:45; Stop 08/18/19 at 14:44; Status DC Potassium Chloride/Water 100 ml @ 100 mls/hr 1X ONCE IV Last administered on 08/19/19at 11:27; Start 08/19/19 at 12:00; Stop 08/19/19 at 12:59; Status DC Hydromorphone HCl (Dilaudid Standard CLINICAL RESEARCH SPEC) 12 mg STK-MED ONCE IV ; Start 08/17/19 at 10:50; Stop 08/19/19 at 11:02; Status DC Hydromorphone HCl (Dilaudid Standard CLINICAL RESEARCH SPEC) 12 mg STK-MED ONCE IV ; Start 08/18/19 at 13:47; Stop 08/19/19 at 11:03; Status DC Potassium Acetate 30 meq/Magnesium Sulfate 20 meq/ Calcium Gluconate 10 meq/ Multivitamins 10 ml/Chromium/ Copper/Manganese/ Seleni/Zn 0.5 ml/ Insulin Human Regular 30 unit/ Potassium Chloride 30 meq/ Total Parenteral Nutrition/Amino Acids/Dextrose/ Fat Emulsion Intravenous 1,920 ml @ 80 mls/hr TPN CONT IV Last administered on 08/19/19at 22:34; Start 08/19/19 at 22:00; Stop 08/20/19 at 21:59; Status DC Potassium Chloride/Water 100 ml @ 100 mls/hr Q1H IV Last administered on 08/20/19at 13:05; Start 08/20/19 at 07:00; Stop 08/20/19 at 10:59; Status DC Magnesium Sulfate 50 ml @ 25 mls/hr 1X ONCE IV Last administered on 08/20/19at 10:34; Start 08/20/19 at 10:30; Stop 08/20/19 at 12:29; Status DC Potassium Chloride 75 meq/ Magnesium Sulfate 20 meq/Calcium Gluconate 10 meq/ Multivitamins 10 ml/Chromium/ Copper/Manganese/ Seleni/Zn 0.5 ml/ Insulin Human Regular 30 unit/ Total Parenteral Nutrition/Amino Acids/Dextrose/ Fat Emulsion Intravenous 1,920 ml @ 80 mls/hr TPN CONT IV Last administered on 08/20/19at 21:51; Start 08/20/19 at 22:00; Stop 08/21/19 at 22:00; Status DC Potassium Chloride 75 meq/ Magnesium Sulfate 20 meq/Calcium Gluconate 10 meq/ Multivitamins 10 ml/Chromium/ Copper/Manganese/ Seleni/Zn 0.5 ml/ Insulin Human Regular 25 unit/ Total Parenteral Nutrition/Amino Acids/Dextrose/ Fat Emulsion Intravenous 1,920 ml @ 80 mls/hr TPN CONT IV Last administered on 08/21/19at 22:04; Start 08/21/19 at 22:00; Stop 08/22/19 at 21:59; Status DC Hydromorphone HCl (Dilaudid) 0.4 mg PRN Q4HRS PRN IVP PAIN Last administered on 08/22/19at 10:57; Start 08/22/19 at 09:00; Stop 08/22/19 at 18:59; Status DC Micafungin Sodium 100 mg/Dextrose 100 ml @ 100 mls/hr Q24H IV Last administered on 09/13/19at 12:17; Start 08/22/19 at 11:00; Stop 09/14/19 at 09:59; Status DC Daptomycin 485 mg/ Sodium Chloride 50 ml @ 100 mls/hr Q24H IV Last administered on 08/29/19at 13:10; Start 08/22/19 at 11:00; Stop 08/30/19 at 07:44; Status DC Potassium Chloride 75 meq/ Magnesium Sulfate 15 meq/Calcium Gluconate 8 meq/ Multivitamins 10 ml/Chromium/ Copper/Manganese/ Seleni/Zn 0.5 ml/ Insulin Human Regular 25 unit/ Total Parenteral Nutrition/Amino Acids/Dextrose/ Fat Emulsion Intravenous 1,920 ml @ 80 mls/hr TPN CONT IV Last administered on 08/22/19at 23:08; Start 08/22/19 at 22:00; Stop 08/23/19 at 21:59; Status DC Haloperidol Lactate (Haldol Inj) 3 mg 1X ONCE IVP Last administered on 08/22/19at 14:37; Start 08/22/19 at 14:30; Stop 08/22/19 at 14:31; Status DC Hydromorphone HCl (Dilaudid) 1 mg PRN Q4HRS PRN IVP PAIN Last administered on 09/05/19at 06:25; Start 08/22/19 at 19:00; Stop 09/05/19 at 17:10; Status DC Potassium Chloride 75 meq/ Magnesium Sulfate 15 meq/Calcium Gluconate 8 meq/ Multivitamins 10 ml/Chromium/ Copper/Manganese/ Seleni/Zn 0.5 ml/ Insulin Human Regular 20 unit/ Total Parenteral Nutrition/Amino Acids/Dextrose/ Fat Emulsion Intravenous 1,920 ml @ 80 mls/hr TPN CONT IV Last administered on 08/23/19at 22:10; Start 08/23/19 at 22:00; Stop 08/24/19 at 21:59; Status DC Lidocaine HCl (Buffered Lidocaine 1%) 3 ml STK-MED ONCE .ROUTE ; Start 08/24/19 at 11:31; Stop 08/24/19 at 11:31; Status DC Lidocaine HCl (Buffered Lidocaine 1%) 3 ml STK-MED ONCE .ROUTE ; Start 08/24/19 at 12:28; Stop 08/24/19 at 12:29; Status DC Lidocaine HCl (Buffered Lidocaine 1%) 6 ml 1X ONCE INJ Last administered on 08/24/19at 12:53; Start 08/24/19 at 12:45; Stop 08/24/19 at 12:46; Status DC Potassium Chloride 75 meq/ Magnesium Sulfate 15 meq/Calcium Gluconate 8 meq/ Multivitamins 10 ml/Chromium/ Copper/Manganese/ Seleni/Zn 0.5 ml/ Insulin Human Regular 20 unit/ Total Parenteral Nutrition/Amino Acids/Dextrose/ Fat Emulsion Intravenous 1,920 ml @ 80 mls/hr TPN CONT IV Last administered on 08/24/19at 22:00; Start 08/24/19 at 22:00; Stop 08/25/19 at 21:59; Status DC Potassium Chloride 75 meq/ Magnesium Sulfate 15 meq/Calcium Gluconate 8 meq/ Multivitamins 10 ml/Chromium/ Copper/Manganese/ Seleni/Zn 0.5 ml/ Insulin Human Regular 15 unit/ Total Parenteral Nutrition/Amino Acids/Dextrose/ Fat Emulsion Intravenous 1,920 ml @ 80 mls/hr TPN CONT IV Last administered on 08/25/19at 22:28; Start 08/25/19 at 22:00; Stop 08/26/19 at 21:59; Status DC Vecuronium [place] (Norcuron Bolus) 6 mg PRN Q6HRS PRN IV VENT ASYNCHRONY; Start 08/25/19 at 19:15; Stop 08/25/19 at 19:35; Status DC Bumetanide (Bumex) 2 mg 1X ONCE IV Last administered on 08/25/19at 22:09; Start 08/25/19 at 19:45; Stop 08/25/19 at 19:46; Status DC Lidocaine HCl (Buffered Lidocaine 1%) 3 ml STK-MED ONCE .ROUTE ; Start 08/26/19 at 07:59; Stop 08/26/19 at 07:59; Status DC Midazolam HCl (Versed) 5 mg STK-MED ONCE .ROUTE ; Start 08/26/19 at 08:36; Stop 08/26/19 at 08:36; Status DC Fentanyl Citrate (Fentanyl 5ml Vial) 250 mcg STK-MED ONCE .ROUTE ; Start 08/26/19 at 08:36; Stop 08/26/19 at 08:37; Status DC Lidocaine HCl (Buffered Lidocaine 1%) 3 ml 1X ONCE IJ Last administered on 08/26/19at 09:30; Start 08/26/19 at 09:15; Stop 08/26/19 at 09:16; Status DC Midazolam HCl (Versed) 5 mg 1X ONCE IV Last administered on 08/26/19at 09:30; Start 08/26/19 at 09:15; Stop 08/26/19 at 09:16; Status DC Fentanyl Citrate (Fentanyl 5ml Vial) 250 mcg 1X ONCE IV Last administered on 08/26/19at 09:30; Start 08/26/19 at 09:15; Stop 08/26/19 at 09:16; Status DC Bumetanide (Bumex) 2 mg DAILY IV Last administered on 09/05/19at 08:07; Start 08/26/19 at 10:00; Stop 09/05/19 at 17:15; Status DC Potassium Chloride 75 meq/ Magnesium Sulfate 15 meq/ Multivitamins 10 ml/Chromium/ Copper/Manganese/ Seleni/Zn 0.5 ml/ Insulin Human Regular 15 unit/ Total Parenteral Nutrition/Amino Acids/Dextrose/ Fat Emulsion Intravenous 1,920 ml @ 80 mls/hr TPN CONT IV Last administered on 08/26/19at 21:59; Start 08/26/19 at 22:00; Stop 08/27/19 at 21:59; Status DC Metoclopramide HCl (Reglan Vial) 10 mg PRN Q3HRS PRN IVP NAUSEA/VOMITING-3rd choice Last administered on 09/01/19at 04:25; Start 08/27/19 at 16:45 Potassium Chloride 75 meq/ Magnesium Sulfate 15 meq/ Multivitamins 10 ml/Chromium/ Copper/Manganese/ Seleni/Zn 0.5 ml/ Insulin Human Regular 15 unit/ Total Parenteral Nutrition/Amino Acids/Dextrose/ Fat Emulsion Intravenous 1,920 ml @ 80 mls/hr TPN CONT IV Last administered on 08/27/19at 22:41; Start 08/27/19 at 22:00; Stop 08/28/19 at 21:59; Status DC Magnesium Sulfate 50 ml @ 25 mls/hr 1X ONCE IV Last administered on 08/28/19at 10:44; Start 08/28/19 at 09:00; Stop 08/28/19 at 10:59; Status DC Potassium Chloride/Water 100 ml @ 100 mls/hr 1X ONCE IV Last administered on 08/28/19at 09:37; Start 08/28/19 at 09:00; Stop 08/28/19 at 09:59; Status DC Duloxetine HCl (Cymbalta) 30 mg DAILY PO Last administered on 08/29/19at 09:48; Start 08/28/19 at 14:00; Stop 08/31/19 at 10:25; Status DC Potassium Chloride 80 meq/ Magnesium Sulfate 20 meq/ Multivitamins 10 ml/Chromium/ Copper/Manganese/ Seleni/Zn 0.5 ml/ Insulin Human Regular 15 unit/ Total Parenteral Nutrition/Amino Acids/Dextrose/ Fat Emulsion Intravenous 1,920 ml @ 80 mls/hr TPN CONT IV Last administered on 08/28/19at 21:42; Start 08/28/19 at 22:00; Stop 08/29/19 at 21:59; Status DC Potassium Chloride 80 meq/ Magnesium Sulfate 20 meq/ Multivitamins 10 ml/Chromium/ Copper/Manganese/ Seleni/Zn 0.5 ml/ Insulin Human Regular 15 unit/ Total Parenteral Nutrition/Amino Acids/Dextrose/ Fat Emulsion Intravenous 1,920 ml @ 80 mls/hr TPN CONT IV Last administered on 08/29/19at 22:20; Start 08/29/19 at 22:00; Stop 08/30/19 at 21:59; Status DC Lidocaine HCl (Buffered Lidocaine 1%) 3 ml STK-MED ONCE .ROUTE ; Start 08/30/19 at 09:54; Stop 08/30/19 at 09:55; Status DC Hydromorphone HCl (Dilaudid Standard CLINICAL RESEARCH SPEC) 12 mg STK-MED ONCE IV ; Start 08/19/19 at 15:50; Stop 08/30/19 at 11:24; Status DC Potassium Chloride 80 meq/ Magnesium Sulfate 20 meq/ Multivitamins 10 ml/Chromium/ Copper/Manganese/ Seleni/Zn 0.5 ml/ Insulin Human Regular 15 unit/ Total Parenteral Nutrition/Amino Acids/Dextrose/ Fat Emulsion Intravenous 1,920 ml @ 80 mls/hr TPN CONT IV Last administered on 08/30/19at 21:40; Start 08/30/19 at 22:00; Stop 08/31/19 at 21:59; Status DC Lidocaine HCl (Buffered Lidocaine 1%) 6 ml 1X ONCE INJ Last administered on 08/30/19at 14:15; Start 08/30/19 at 14:15; Stop 08/30/19 at 14:16; Status DC Potassium Chloride 80 meq/ Magnesium Sulfate 20 meq/ Multivitamins 10 ml/Chromium/ Copper/Manganese/ Seleni/Zn 1 ml/ Insulin Human Regular 15 unit/ Total Parenteral Nutrition/Amino Acids/Dextrose/ Fat Emulsion Intravenous 1,920 ml @ 80 mls/hr TPN CONT IV Last administered on 08/31/19at 22:04; Start 08/31/19 at 22:00; Stop 09/01/19 at 21:59; Status DC Potassium Chloride/Water 100 ml @ 100 mls/hr 1X ONCE IV Last administered on 09/01/19at 11:34; Start 09/01/19 at 11:00; Stop 09/01/19 at 11:59; Status DC Potassium Chloride 90 meq/ Magnesium Sulfate 20 meq/ Multivitamins 10 ml/Chromium/ Copper/Manganese/ Seleni/Zn 1 ml/ Insulin Human Regular 15 unit/ Total Parenteral Nutrition/Amino Acids/Dextrose/ Fat Emulsion Intravenous 1,920 ml @ 80 mls/hr TPN CONT IV Last administered on 09/01/19at 22:57; Start 09/01/19 at 22:00; Stop 09/02/19 at 21:59; Status DC Potassium Chloride 90 meq/ Magnesium Sulfate 20 meq/ Multivitamins 10 ml/Chromium/ Copper/Manganese/ Seleni/Zn 1 ml/ Insulin Human Regular 15 unit/ Total Parenteral Nutrition/Amino Acids/Dextrose/ Fat Emulsion Intravenous 1,920 ml @ 80 mls/hr TPN CONT IV Last administered on 09/02/19at 22:48; Start 09/02/19 at 22:00; Stop 09/03/19 at 21:59; Status DC Potassium Chloride 90 meq/ Magnesium Sulfate 20 meq/ Multivitamins 10 ml/Chromium/ Copper/Manganese/ Seleni/Zn 1 ml/ Insulin Human Regular 15 unit/ Total Parenteral Nutrition/Amino Acids/Dextrose/ Fat Emulsion Intravenous 1,890 ml @ 78.75 mls/ hr TPN CONT IV Last administered on 09/03/19at 22:15; Start 09/03/19 at 22:00; Stop 09/04/19 at 21:59; Status DC Linezolid/Dextrose 300 ml @ 300 mls/hr Q12HR IV Last administered on 09/06/19at 21:08; Start 09/04/19 at 09:00; Stop 09/07/19 at 08:11; Status DC Daptomycin 450 mg/ Sodium Chloride 50 ml @ 100 mls/hr Q24H IV Last administered on 09/07/19at 09:25; Start 09/04/19 at 09:00; Stop 09/08/19 at 08:30; Status DC Potassium Chloride 90 meq/ Magnesium Sulfate 20 meq/ Multivitamins 10 ml/Chromium/ Copper/Manganese/ Seleni/Zn 1 ml/ Insulin Human Regular 15 unit/ Total Parenteral Nutrition/Amino Acids/Dextrose/ Fat Emulsion Intravenous 1,890 ml @ 78.75 mls/ hr TPN CONT IV Last administered on 09/04/19at 21:34; Start 09/04/19 at 22:00; Stop 09/05/19 at 21:59; Status DC Lorazepam (Ativan Inj) 2 mg STK-MED ONCE .ROUTE ; Start 09/04/19 at 14:58; Stop 09/04/19 at 14:58; Status DC Metoprolol Tartrate (Lopressor Vial) 5 mg 1X ONCE IVP Last administered on 09/04/19at 15:31; Start 09/04/19 at 15:15; Stop 09/04/19 at 15:16; Status DC Lorazepam (Ativan Inj) 2 mg 1X ONCE IVP Last administered on 09/04/19at 15:30; Start 09/04/19 at 15:15; Stop 09/04/19 at 15:16; Status DC Enoxaparin Sodium (Lovenox 40mg Syringe) 40 mg Q24H SQ Last administered on 09/23/19at 17:44; Start 09/04/19 at 17:00; Stop 09/25/19 at 06:50; Status DC Lorazepam (Ativan Inj) 1 mg PRN Q4HRS PRN IVP ANXIETY / AGITATION MILD-MOD Last administered on 09/18/19at 15:55; Start 09/04/19 at 19:15; Stop 09/20/19 at 11:45; Status DC Lorazepam (Ativan Inj) 2 mg PRN Q4HRS PRN IVP ANXIETY / AGITATION SEVERE Last administered on 09/19/19at 07:55; Start 09/04/19 at 19:15; Stop 09/20/19 at 11:45; Status DC Fentanyl Citrate (Fentanyl 2ml Vial) 50 mcg PRN Q4HRS PRN IVP SEVERE PAIN Last administered on 10/01/19at 05:15; Start 09/05/19 at 13:15; Stop 10/02/19 at 09:29; Status DC Fentanyl Citrate (Fentanyl 2ml Vial) 25 mcg PRN Q4HRS PRN IVP MODERATE PAIN Last administered on 10/01/19at 00:27; Start 09/05/19 at 13:15; Stop 10/02/19 at 09:30; Status DC Potassium Chloride 90 meq/ Magnesium Sulfate 20 meq/ Multivitamins 10 ml/Chromium/ Copper/Manganese/ Seleni/Zn 1 ml/ Insulin Human Regular 15 unit/ Total Parenteral Nutrition/Amino Acids/Dextrose/ Fat Emulsion Intravenous 1,890 ml @ 78.75 mls/ hr TPN CONT IV Last administered on 09/05/19at 22:18; Start 09/05/19 at 22:00; Stop 09/06/19 at 21:59; Status DC Furosemide (Lasix) 40 mg 1X ONCE IVP Last administered on 09/05/19at 21:51; Start 09/05/19 at 21:45; Stop 09/05/19 at 21:48; Status DC Albumin Human 100 ml @ 100 mls/hr 1X PRN PRN IV SEE COMMENTS; Start 09/06/19 at 01:30 Furosemide (Lasix) 40 mg [id number] IVP Last administered on 09/21/19at 08:04; Start 09/06/19 at 14:00; Stop 09/21/19 at 13:07; Status DC Potassium Chloride 90 meq/ Magnesium Sulfate 20 meq/ Multivitamins 10 ml/Chromium/ Copper/Manganese/ Seleni/Zn 1 ml/ Insulin Human Regular 15 unit/ Total Parenteral Nutrition/Amino Acids/Dextrose/ Fat Emulsion Intravenous 1,800 ml @ 75 mls/hr TPN CONT IV Last administered on 09/06/19at 22:31; Start at 22:00; Stop 09/07/19 at 21:59; Status DC Potassium Chloride 90 meq/ Magnesium Sulfate 20 meq/ Multivitamins 10 ml/Chr omium/ Copper/Manganese/ Seleni/Zn 1 ml/ Insulin Human Regular 15 unit/ Total Parenteral Nutrition/Amino Acids/Dextrose/ Fat Emulsion Intravenous 1,800 ml @ 75 mls/hr TPN CONT IV Last administered on 09/07/19at 22:28; Start 09/07/19 at 22:00; Stop 09/08/19 at 21:59; Status DC Potassium Chloride 110 meq/ Magnesium Sulfate 20 meq/ Multivitamins 10 ml/Chromium/ Copper/Manganese/ Seleni/Zn 1 ml/ Insulin Human Regular 15 unit/ Total Parenteral Nutrition/Amino Acids/Dextrose/ Fat Emulsion Intravenous 1,800 ml @ 75 mls/hr TPN CONT IV Last administered on 09/08/19at 22:01; Start 09/08/19 at 22:00; Stop 09/09/19 at 21:59; Status DC Saliva Substitute (Biotene Moisturizing Mouth) 2 spray PRN Q15MIN PRN PO DRY MOUTH; Start 09/08/19 at 11:00 Potassium Chloride 110 meq/ Magnesium Sulfate 20 meq/ Multivitamins 10 ml/Chromium/ Copper/Manganese/ Seleni/Zn 1 ml/ Insulin Human Regular 15 unit/ T otal Parenteral Nutrition/Amino Acids/Dextrose/ Fat Emulsion Intravenous 1,800 ml @ 75 mls/hr TPN CONT IV Last administered on 09/09/19at 22:21; Start 09/09/19 at 22:00; Stop 09/10/19 at 21:59; Status DC Potassium Chloride 110 meq/ Magnesium Sulfate 20 meq/ Multivitamins 10 ml/Chromium/ Copper/Manganese/ Seleni/Zn 1 ml/ Insulin Human Regular 15 unit/ Total Parenteral Nutrition/Amino Acids/Dextrose/ Fat Emulsion Intravenous 1,800 ml @ 75 mls/hr TPN CONT IV Last administered on 09/10/19at 22:04; Start at 22:00; Stop 09/11/19 at 21:59; Status DC Potassium Chloride 110 meq/ Magnesium Sulfate 20 meq/ Multivitamins 10 ml/Ch romium/ Copper/Manganese/ Seleni/Zn 1 ml/ Insulin Human Regular 15 unit/ Total Parenteral Nutrition/Amino Acids/Dextrose/ Fat Emulsion Intravenous 1,800 ml @ 75 mls/hr TPN CONT IV Last administered on 09/11/19at 22:48; Start 09/11/19 at 22:00; Stop 09/12/19 at 21:59; Status DC Potassium Chloride 70 meq/ Magnesium Sulfate 20 meq/ Multivitamins 10 ml/Chromium/ Copper/Manganese/ Seleni/Zn 1 ml/ Insulin Human Regular 15 unit/ Total Parenteral Nutrition/Amino Acids/Dextrose/ Fat Emulsion Intravenous 1,800 ml @ 75 mls/hr TPN CONT IV Last administered on 09/12/19at 21:39; Start 09/12/19 at 22:00; Stop 09/13/19 at 21:59; Status DC Meropenem 500 mg/ Sodium Chloride 50 ml @ 100 mls/hr Q6HRS IV Last administered on 09/14/19at 06:02; Start 09/12/19 at 18:00; Stop 09/14/19 at 09:59; Status DC Barium Sulfate (Varibar Thin Liquid Apple) 148 gm 1X ONCE PO ; Start 09/13/19 at 11:45; Stop 09/13/19 at 11:49; Status DC Potassium Chloride 70 meq/ Magnesium Sulfate 20 meq/ Multivitamins 10 ml/Chromium/ Copper/Manganese/ Seleni/Zn 1 ml/ Insulin Human Regular 15 unit/ Total Parenteral Nutrition/Amino Acids/Dextrose/ Fat Emulsion Intravenous 1,800 ml @ 75 mls/hr TPN CONT IV Last administered on 09/13/19at 22:27; Start 09/13/19 at 22:00; Stop 09/14/19 at 21:59; Status DC Piperacillin Sod/ Tazobactam Sod 3.375 gm/Sodium Chloride 50 ml @ 100 mls/hr Q6HRS IV Last administered on 09/22/19at 06:10; Start 09/14/19 at 12:00; Stop 09/22/19 at 07:26; Status DC Potassium Chloride 70 meq/ Magnesium Sulfate 20 meq/ Multivitamins 10 ml/ Chromium/ Copper/Manganese/ Seleni/Zn 1 ml/ Insulin Human Regular 15 unit/ Total Parenteral Nutrition/Amino Acids/Dextrose/ Fat Emulsion Intravenous 1,800 ml @ 75 mls/hr TPN CONT IV Last administered on 09/14/19at 22:03; Start 09/14/19 at 22:00; Stop 09/15/19 at 21:59; Status DC Potassium Chloride 70 meq/ Magnesium Sulfate 20 meq/ Multivitamins 10 ml/Chromium/ Copper/Manganese/ Seleni/Zn 1 ml/ Insulin Human Regular 15 unit/ Total Parenteral Nutrition/Amino Acids/Dextrose/ Fat Emulsion Intravenous 1,800 ml @ 75 mls/hr TPN CONT IV Last administered on 09/15/19at 22:33; Start 09/15/19 at 22:00; Stop 09/16/19 at 21:59; Status DC Potassium Chloride 70 meq/ Magnesium Sulfate 20 meq/ Multivitamins 10 ml/Chromium/ Copper/Manganese/ Seleni/Zn 1 ml/ Insulin Human Regular 15 unit/ Total Parenteral Nutrition/Amino Acids/Dextrose/ Fat Emulsion Intravenous 1,800 ml @ 75 mls/hr TPN CONT IV Last administered on 09/16/19at 23:13; Start 09/16/19 at 22:00; Stop 09/17/19 at 21:59; Status DC Potassium Chloride 80 meq/ Magnesium Sulfate 20 meq/ Multivitamins 10 ml/Chromium/ Copper/Manganese/ Seleni/Zn 1 ml/ Insulin Human Regular 15 unit/ Total Parenteral Nutrition/Amino Acids/Dextrose/ Fat Emulsion Intravenous 1,800 ml @ 75 mls/hr TPN CONT IV Last administered on 09/17/19at 22:30; Start 09/17/19 at 22:00; Stop 09/18/19 at 21:59; Status DC Potassium Chloride 80 meq/ Magnesium Sulfate 20 meq/ Multivitamins 10 ml/Chromium/ Copper/Manganese/ Seleni/Zn 1 ml/ Insulin Human Regular 15 unit/ Total Parenteral Nutrition/Amino Acids/Dextrose/ Fat Emulsion Intravenous 1,800 ml @ 75 mls/hr TPN CONT IV Last administered on 09/18/19at 21:54; Start 09/18/19 at 22:00; Stop 09/19/19 at 21:59; Status DC Potassium Chloride/Water 100 ml @ 100 mls/hr 1X ONCE IV Last administered on 09/19/19at 10:15; Start 09/19/19 at 10:00; Stop 09/19/19 at 10:59; Status DC Potassium Chloride 90 meq/ Magnesium Sulfate 20 meq/ Multivitamins 10 ml/Chromium/ Copper/Manganese/ Seleni/Zn 1 ml/ Insulin Human Regular 20 unit/ Total Parenteral Nutrition/Amino Acids/Dextrose/ Fat Emulsion Intravenous 1,800 ml @ 75 mls/hr TPN CONT IV Last administered on 09/19/19at 22:28; Start 09/19/19 at 22:00; Stop 09/20/19 at 21:59; Status DC Potassium Chloride 90 meq/ Magnesium Sulfate 20 meq/ Multivitamins 10 ml/Chromium/ Copper/Manganese/ Seleni/Zn 1 ml/ Insulin Human Regular 20 unit/ Total Parenteral Nutrition/Amino Acids/Dextrose/ Fat Emulsion Intravenous 1,800 ml @ 75 mls/hr TPN CONT IV Last administered on 09/20/19at 22:08; Start 09/20/19 at 22:00; Stop 09/21/19 at 21:59; Status DC Lorazepam (Ativan Inj) 0.25 mg PRN Q4HRS PRN IVP ANXIETY / AGITATION Last administered on 11/12/19at 13:06; Start 09/21/19 at 07:30 Potassium Chloride 90 meq/ Magnesium Sulfate 20 meq/ Multivitamins 10 ml/Chromium/ Copper/Manganese/ Seleni/Zn 1 ml/ Insulin Human Regular 20 unit/ Total Parenteral Nutrition/Amino Acids/Dextrose/ Fat Emulsion Intravenous 1,800 ml @ 75 mls/hr TPN CONT IV Last administered on 09/21/19at 23:13; Start 09/21/19 at 22:00; Stop 09/22/19 at 21:59; Status DC Furosemide (Lasix) 40 mg DAILY IVP Last administered on 09/23/19at 11:14; Start 09/21/19 at 13:30; Stop 09/25/19 at 09:12; Status DC Fluoxetine HCl (PROzac) 20 mg QHS PEG Last administered on 11/14/19at 20:50; Start 09/22/19 at 21:00 Fentanyl (Duragesic 50mcg/ Hr Patch) 1 patch Q72H TD Last administered on 09/22/19at 21:22; Start 09/22/19 at 21:00; Stop 10/01/19 at 12:00; Status DC Potassium Chloride 40 meq/ Potassium Acetate 60 meq/Magnesium Sulfate 10 meq/ Multivitamins 10 ml/Chromium/ Copper/Manganese/ Seleni/Zn 1 ml/ Insulin Human Regular 20 unit/ Total Parenteral Nutrition/Amino Acids/Dextrose/ Fat Emulsion Intravenous 1,800 ml @ 75 mls/hr TPN CONT IV Last administered on 09/23/19at 00:03; Start 09/22/19 at 22:00; Stop 09/23/19 at 21:59; Status DC Potassium Acetate 80 meq/Magnesium Sulfate 5 meq/ Multivitamins 10 ml/Chromium/ Copper/Manganese/ Seleni/Zn 1 ml/ Insulin Human Regular 20 unit/ Total Parenter al Nutrition/Amino Acids/Dextrose/ Fat Emulsion Intravenous 1,920 ml @ 80 mls/hr TPN CONT IV Last administered on 09/23/19at 21:59; Start 09/23/19 at 22:00; Stop 09/24/19 at 21:59; Status DC Potassium Acetate 60 meq/Magnesium Sulfate 5 meq/ Multivitamins 10 ml/Chromium/ Copper/Manganese/ Seleni/Zn 1 ml/ Insulin Human Regular 30 unit/ Total Parenteral Nutrition/Amino Acids/Dextrose/ Fat Emulsion Intravenous 1,920 ml @ 80 mls/hr TPN CONT IV Last administered on 09/24/19at 21:54; Start 09/24/19 at 22:00; Stop 09/25/19 at 21:59; Status DC Norepinephrine Bitartrate 8 mg/ Dextrose 258 ml @ 13.332 mls/ hr CONT PRN IV PER PROTOCOL Last administered on 10/20/19at 09:09; Start 09/25/19 at 06:30 Albumin Human 500 ml @ 125 mls/hr 1X ONCE IV Last administered on 09/25/19at 08:10; Start 09/25/19 at 08:15; Stop 09/25/19 at 12:14; Status DC Potassium Acetate 40 meq/Magnesium Sulfate 5 meq/ Multivitamins 10 ml/Chromium/ Copper/Manganese/ Seleni/Zn 1 ml/ Insulin Human Regular 30 unit/ Total Parenteral Nutrition/Amino Acids/Dextrose/ Fat Emulsion Intravenous 1,920 ml @ 80 mls/hr TPN CONT IV Last administered on 09/25/19at 22:23; Start 09/25/19 at 22:00; Stop 09/26/19 at 21:59; Status DC Meropenem 1 gm/ Sodium Chloride 100 ml @ 200 mls/hr Q8HRS IV ; Start 09/25/19 at 14:00; Status Cancel Meropenem 1 gm/ Sodium Chloride 100 ml @ 200 mls/hr Q8HRS IV Last administered on 09/25/19at 11:04; Start 09/25/19 at 10:00; Stop 09/25/19 at 13:00; Status DC Meropenem 1 gm/ Sodium Chloride 100 ml @ 200 mls/hr Q12HR IV Last administered on 10/13/19at 08:27; Start 09/25/19 at 21:00; Stop 10/13/19 at 08:56; Status DC Sodium Chloride 1,000 ml @ 1,000 mls/hr 1X ONCE IV Last administered on 09/25/19at 11:06; Start 09/25/19 at 10:45; Stop 09/25/19 at 11:44; Status DC Micafungin Sodium 100 mg/Dextrose 100 ml @ 100 mls/hr Q24H IV Last administered on 10/12/19at 12:34; Start 09/25/19 at 11:00; Stop 10/13/19 at 08:56; Status DC Daptomycin 410 mg/ Sodium Chloride 50 ml @ 100 mls/hr Q24H IV Last administered on 09/27/19at 13:33; Start 09/25/19 at 14:00; Stop 09/28/19 at 08:30; Status DC Midazolam HCl (Versed) 2 mg STK-MED ONCE .ROUTE ; Start 09/25/19 at 14:47; Stop 09/25/19 at 14:48; Status DC Fentanyl Citrate (Fentanyl 2ml Vial) 100 mcg STK-MED ONCE .ROUTE ; Start 09/25/19 at 14:47; Stop 09/25/19 at 14:48; Status DC Flumazenil (Romazicon) 0.5 mg STK-MED ONCE IV ; Start 09/25/19 at 14:48; Stop 09/25/19 at 14:48; Status DC Naloxone HCl (Narcan) 0.4 mg STK-MED ONCE .ROUTE ; Start 09/25/19 at 14:48; Stop 09/25/19 at 14:48; Status DC Lidocaine HCl (Lidocaine 1% 20ml Vial) 20 ml STK-MED ONCE .ROUTE ; Start 09/25/19 at 14:48; Stop 09/25/19 at 14:48; Status DC Midazolam HCl (Versed) 2 mg 1X ONCE IV Last administered on 09/25/19at 15:28; Start 09/25/19 at 15:00; Stop 09/25/19 at 15:01; Status DC Fentanyl Citrate (Fentanyl 2ml Vial) 100 mcg 1X ONCE IV Last administered on 09/25/19at 15:28; Start 09/25/19 at 15:00; Stop 09/25/19 at 15:01; Status DC Lidocaine HCl (Lidocaine 1% 20ml Vial) 20 ml 1X ONCE INJ Last administered on 09/25/19at 15:30; Start 09/25/19 at 15:00; Stop 09/25/19 at 15:01; Status DC Sodium Chloride 1,000 ml @ 100 mls/hr Q10H IV Last administered on 10/04/19at 07:30; Start 09/25/19 at 20:00; Stop 10/04/19 at 11:26; Status DC Sodium Bicarbonate (Sodium Bicarb Adult 8.4% Syr) 50 meq 1X ONCE IV Last administered on 09/25/19at 21:47; Start 09/25/19 at 22:00; Stop 09/25/19 at 22:01; Status DC Potassium Acetate 40 meq/Magnesium Sulfate 5 meq/ Multivitamins 10 ml/Chromium/ Copper/Manganese/ Seleni/Zn 1 ml/ Insulin Human Regular 30 unit/ Total Parenteral Nutrition/Amino Acids/Dextrose/ Fat Emulsion Intravenous 1,920 ml @ 80 mls/hr TPN CONT IV Last administered on 09/26/19at 22:28; Start 09/26/19 at 22:00; Stop 09/27/19 at 21:59; Status DC Sodium Chloride 500 ml @ 500 mls/hr 1X ONCE IV Last administered on 09/27/19at 06:39; Start 09/27/19 at 06:45; Stop 09/27/19 at 07:44; Status DC Potassium Acetate 40 meq/Magnesium Sulfate 5 meq/ Multivitamins 10 ml/Chromium/ Copper/Manganese/ Seleni/Zn 1 ml/ Insulin Human Regular 30 unit/ Total Parenteral Nutrition/Amino Acids/Dextrose/ Fat Emulsion Intravenous 1,920 ml @ 80 mls/hr TPN CONT IV Last administered on 09/27/19at 22:03; Start 09/27/19 at 22:00; Stop 09/28/19 at 21:59; Status DC Metoprolol Tartrate (Lopressor Vial) 5 mg PRN Q6HRS PRN IVP HYPERTENSION Last administered on 11/12/19at 09:44; Start 09/28/19 at 09:00 Potassium Acetate 40 meq/Magnesium Sulfate 5 meq/ Multivitamins 10 ml/Chromium/ Copper/Manganese/ Seleni/Zn 1 ml/ Insulin Human Regular 30 unit/ Total Parenteral Nutrition/Amino Acids/Dextrose/ Fat Emulsion Intravenous 1,920 ml @ 80 mls/hr TPN CONT IV Last administered on 09/28/19at 21:26; Start 09/28/19 at 22:00; Stop 09/29/19 at 21:59; Status DC Potassium Acetate 40 meq/Magnesium Sulfate 5 meq/ Multivitamins 10 ml/Chromium/ Copper/Manganese/ Seleni/Zn 1 ml/ Insulin Human Regular 30 unit/ Total Parenteral Nutrition/Amino Acids/Dextrose/ Fat Emulsion Intravenous 1,920 ml @ 80 mls/hr TPN CONT IV Last administered on 09/29/19at 23:23; Start 09/29/19 at 22:00; Stop 09/30/19 at 21:59; Status DC Potassium Acetate 40 meq/Magnesium Sulfate 5 meq/ Multivitamins 10 ml/Chromium/ Copper/Manganese/ Seleni/Zn 1 ml/ Insulin Human Regular 30 unit/ Total Parent eral Nutrition/Amino Acids/Dextrose/ Fat Emulsion Intravenous 1,920 ml @ 80 mls/hr TPN CONT IV Last administered on 09/30/19at 21:35; Start 09/30/19 at 22:00; Stop 10/01/19 at 21:59; Status DC Furosemide (Lasix) 20 mg 1X ONCE IVP Last administered on 10/01/19at 06:26; Start 10/01/19 at 06:15; Stop 10/01/19 at 06:16; Status DC Methylprednisolone Sodium Succinate (SOLU-Medrol 125MG VIAL) 125 mg 1X ONCE IV Last administered on 10/01/19at 06:26; Start 10/01/19 at 06:15; Stop 10/01/19 at 06:16; Status DC Albuterol/ Ipratropium (Duoneb) 3 ml Q4HRS NEB Last administered on 11/15/19at 08:09; Start 10/01/19 at 08:00 Fentanyl Citrate 30 ml @ 0 mls/hr CONT PRN IV SEE PROTOCOL Last administered on 10/22/19at 08:03; Start 10/01/19 at 06:00; Stop 10/22/19 at 12:42; Status DC Propofol 100 ml @ 0 mls/hr CONT PRN IV SEE PROTOCOL Last administered on 10/08/19at 23:50; Start 10/01/19 at 06:00 Fentanyl Citrate (Fentanyl 2ml Vial) 25 mcg PRN Q1HR PRN IV SEE COMMENTS Last administered on 11/15/19at 06:02; Start 10/01/19 at 06:00 Fentanyl Citrate (Fentanyl 2ml Vial) 50 mcg PRN Q1HR PRN IV SEE COMMENTS Last administered on 11/13/19at 17:35; Start 10/01/19 at 06:00 Chlorhexidine Gluconate (Peridex) 15 ml BID MM ; Start 10/01/19 at 09:00; Stop 10/01/19 at 07:58; Status DC Potassium Acetate 40 meq/Magnesium Sulfate 5 meq/ Multivitamins 10 ml/Chromium/ Copper/Manganese/ Seleni/Zn 1 ml/ Insulin Human Regular 30 unit/ Total Parenteral Nutrition/Amino Acids/Dextrose/ Fat Emulsion Intravenous 1,920 ml @ 80 mls/hr TPN CONT IV Last administered on 10/01/19at 21:19; Start 10/01/19 at 22:00; Stop 10/02/19 at 21:59; Status DC Acetylcysteine (Mucomyst 20% Resp Treatment) 600 mg BID NEB Last administered on 10/07/19at 09:33; Start 10/01/19 at 21:00; Stop 10/07/19 at 10:39; Status DC Magnesium Sulfate 100 ml @ 25 mls/hr 1X ONCE IV Last administered on 10/01/19at 15:48; Start 10/01/19 at 15:45; Stop 10/01/19 at 19:44; Status DC Potassium Acetate 40 meq/Magnesium Sulfate 5 meq/ Multivitamins 10 ml/Chromium/ Copper/Manganese/ Seleni/Zn 1 ml/ Insulin Human Regular 30 unit/ Total Parenteral Nutrition/Amino Acids/Dextrose/ Fat Emulsion Intravenous 1,920 ml @ 80 mls/hr TPN CONT IV Last administered on 10/02/19at 21:35; Start 10/02/19 at 22:00; Stop 10/03/19 at 21:59; Status DC Potassium Chloride/Water 100 ml @ 100 mls/hr Q1H IV Last administered on 10/03/19at 08:31; Start 10/03/19 at 07:00; Stop 10/03/19 at 08:59; Status DC Potassium Acetate 40 meq/Magnesium Sulfate 5 meq/ Multivitamins 10 ml/Chromium/ Copper/Manganese/ Seleni/Zn 1 ml/ Insulin Human Regular 30 unit/ Total Parenteral Nutrition/Amino Acids/Dextrose/ Fat Emulsion Intravenous 1,920 ml @ 80 mls/hr TPN CONT IV Last administered on 10/03/19at 21:54; Start 10/03/19 at 22:00; Stop 10/04/19 at 19:34; Status DC Lidocaine HCl (Buffered Lidocaine 1%) 3 ml STK-MED ONCE .ROUTE ; Start 10/03/19 at 12:14; Stop 10/03/19 at 12:14; Status DC Lidocaine HCl (Buffered Lidocaine 1%) 3 ml 1X ONCE IJ Last administered on 10/03/19at 13:11; Start 10/03/19 at 13:00; Stop 10/03/19 at 13:01; Status DC Magnesium Sulfate 50 ml @ 25 mls/hr 1X ONCE IV ; Start 10/04/19 at 08:15; Stop 10/04/19 at 10:14; Status DC Potassium Acetate 40 meq/Magnesium Sulfate 10 meq/ Multivitamins 10 ml/Chromium/ Copper/Manganese/ Seleni/Zn 1 ml/ Insulin Human Regular 20 unit/ Total Parenteral Nutrition/Amino Acids/Dextrose/ Fat Emulsion Intravenous 1,920 ml @ 80 mls/hr TPN CONT IV Last administered on 10/04/19at 21:32; Start 10/04/19 at 22:00; Stop 10/05/19 at 21:59; Status DC Potassium Chloride/Water 100 ml @ 100 mls/hr Q1H IV Last administered on 10/05/19at 09:12; Start 10/05/19 at 08:00; Stop 10/05/19 at 09:59; Status DC Alteplase, Recombinant (Cathflo For Central Catheter Clearance) 4 mg 1X ONCE INT CAT ; Start 10/05/19 at 09:15; Stop 10/05/19 at 09:16; Status UNV Alteplase, Recombinant (Cathflo For Central Catheter Clearance) 4 mg 1X ONCE INT CAT ; Start 10/05/19 at 09:15; Stop 10/05/19 at 09:16; Status UNV Alteplase, Recombinant (Cathflo For Central Catheter Clearance) 4 mg 1X ONCE INT CAT ; Start 10/05/19 at 09:15; Stop 10/05/19 at 09:16; Status UNV Alteplase, Recombinant 4 mg/ Sodium Chloride 20 ml @ 20 mls/hr 1X ONCE IV Last administered on 10/05/19at 10:10; Start 10/05/19 at 10:00; Stop 10/05/19 at 10:59; Status DC Alteplase, Recombinant 4 mg/ Sodium Chloride 20 ml @ 20 mls/hr 1X ONCE IV Last administered on 10/05/19at 10:09; Start 10/05/19 at 10:00; Stop 10/05/19 at 10:59; Status DC Alteplase, Recombinant 4 mg/ Sodium Chloride 20 ml @ 20 mls/hr 1X ONCE IV Last administered on 10/05/19at 10:09; Start 10/05/19 at 10:00; Stop 10/05/19 at 10:59; Status DC Potassium Acetate 60 meq/Magnesium Sulfate 10 meq/ Multivitamins 10 ml/Chromium/ Copper/Manganese/ Seleni/Zn 1 ml/ Insulin Human Regular 20 unit/ Total Parenteral Nutrition/Amino Acids/Dextrose/ Fat Emulsion Intravenous 1,920 ml @ 80 mls/hr TPN CONT IV Last administered on 10/05/19at 21:55; Start 10/05/19 at 22:00; Stop 10/06/19 at 21:59; Status DC Albumin Human 500 ml @ 125 mls/hr 1X ONCE IV Last administered on 10/06/19at 12:01; Start 10/06/19 at 11:15; Stop 10/06/19 at 15:14; Status DC Sodium Chloride 500 ml @ 500 mls/hr 1X ONCE IV Last administered on 10/06/19at 13:50; Start 10/06/19 at 11:15; Stop 10/06/19 at 12:14; Status DC Potassium Acetate 60 meq/Magnesium Sulfate 14 meq/ Multivitamins 10 ml/Chromium/ Copper/Manganese/ Seleni/Zn 1 ml/ Insulin Human Regular 20 unit/ Total Parenteral Nutrition/Amino Acids/Dextrose/ Fat Emulsion Intravenous 1,920 ml @ 80 mls/hr TPN CONT IV Last administered on 10/06/19at 22:26; Start 10/06/19 at 22:00; Stop 10/07/19 at 21:59; Status DC Ciprofloxacin/ Dextrose 200 ml @ 200 mls/hr Q12HR IV Last administered on 10/13/19at 08:27; Start 10/06/19 at 21:00; Stop 10/13/19 at 08:56; Status DC Albumin Human 250 ml @ 62.5 mls/hr 1X ONCE IV Last administered on 10/07/19at 11:09; Start 10/07/19 at 11:00; Stop 10/07/19 at 14:59; Status DC Furosemide (Lasix) 20 mg 1X ONCE IVP Last administered on 10/07/19at 14:52; Start 10/07/19 at 10:45; Stop 10/07/19 at 10:49; Status DC Potassium Acetate 60 meq/Magnesium Sulfate 14 meq/ Multivitamins 10 ml/Chromium/ Copper/Manganese/ Seleni/Zn 1 ml/ Insulin Human Regular 15 unit/ Total Parenteral Nutrition/Amino Acids/Dextrose/ Fat Emulsion Intravenous 1,920 ml @ 80 mls/hr TPN CONT IV Last administered on 10/07/19at 22:08; Start 10/07/19 at 22:00; Stop 10/08/19 at 21:59; Status DC Potassium Acetate 60 meq/Magnesium Sulfate 14 meq/ Multivitamins 10 ml/Chromium/ Copper/Manganese/ Seleni/Zn 1 ml/ Insulin Human Regular 15 unit/ Total Parenteral Nutrition/Amino Acids/Dextrose/ Fat Emulsion Intravenous 1,920 ml @ 80 mls/hr TPN CONT IV Last administered on 10/08/19at 22:12; Start 10/08/19 at 22:00; Stop 10/09/19 at 21:59; Status DC Potassium Acetate 60 meq/Magnesium Sulfate 14 meq/ Multivitamins 10 ml/Chromium/ Copper/Manganese/ Seleni/Zn 1 ml/ Insulin Human Regular 15 unit/ Total Parenteral Nutrition/Amino Acids/Dextrose/ Fat Emulsion Intravenous 1,920 ml @ 80 mls/hr TPN CONT IV Last administered on 10/09/19at 22:22; Start 10/09/19 at 22:00; Stop 10/10/19 at 21:59; Status DC Furosemide (Lasix) 20 mg 1X ONCE IVP Last administered on 10/10/19at 11:07; Start 10/10/19 at 10:30; Stop 10/10/19 at 10:34; Status DC Potassium Acetate 60 meq/Magnesium Sulfate 14 meq/ Multivitamins 10 ml/Chromium/ Copper/Manganese/ Seleni/Zn 1 ml/ Insulin Human Regular 15 unit/ Sodium Chloride 20 meq/Total Parenteral Nutrition/Amino Acids/Dextrose/ Fat Emulsion Intravenous 1,920 ml @ 80 mls/hr TPN CONT IV Last administered on 10/10/19at 21:54; Start 10/10/19 at 22:00; Stop 10/11/19 at 21:59; Status DC Potassium Acetate 30 meq/Magnesium Sulfate 14 meq/ Multivitamins 10 ml/Chromium/ Copper/Manganese/ Seleni/Zn 1 ml/ Insulin Human Regular 15 unit/ Sodium Chloride 20 meq/Potassium Chloride 30 meq/ Total Parenteral Nutrition/Amino Acids/Dextrose/ Fat Emulsion Intravenous 1,920 ml @ 80 mls/hr TPN CONT IV Last administered on 10/11/19at 21:46; Start 10/11/19 at 22:00; Stop 10/12/19 at 21:59; Status DC Sodium Chloride 80 meq/Potassium Chloride 30 meq/ Potassium Acetate 30 meq/Magnesium Sulfate 14 meq/ Multivitamins 10 ml/Chromium/ Copper/Manganese/ Seleni/Zn 1 ml/ Insulin Human Regular 15 unit/ Total Parenteral Nutrition/Amino Acids/Dextrose/ Fat Emulsion Intravenous 1,920 ml @ 80 mls/hr TPN CONT IV Last administered on 10/12/19at 22:33; Start 10/12/19 at 22:00; Stop 10/13/19 at 21:59; Status DC Furosemide (Lasix) 40 mg 1X ONCE IVP Last administered on 10/12/19at 16:27; Start 10/12/19 at 15:30; Stop 10/12/19 at 15:33; Status DC Albumin Human 250 ml @ 62.5 mls/hr 1X ONCE IV Last administered on 10/12/19at 16:27; Start 10/12/19 at 15:30; Stop 10/12/19 at 19:29; Status DC Sodium Chloride 80 meq/Potassium Chloride 30 meq/ Potassium Acetate 30 meq/Magnesium Sulfate 14 meq/ Multivitamins 10 ml/Chromium/ Copper/Manganese/ Seleni/Zn 1 ml/ Insulin Human Regular 15 unit/ Total Parenteral Nutrition/Amino Acids/Dextrose/ Fat Emulsion Intravenous 1,920 ml @ 80 mls/hr TPN CONT IV Last administered on 10/13/19at 22:25; Start 10/13/19 at 22:00; Stop 10/14/19 at 21:59; Status DC Sodium Chloride 80 meq/Potassium Chloride 30 meq/ Potassium Acetate 30 meq/Magnesium Sulfate 14 meq/ Multivitamins 10 ml/Chromium/ Copper/Manganese/ Seleni/Zn 1 ml/ Insulin Human Regular 15 unit/ Total Parenteral Nutrition/Amino Acids/Dextrose/ Fat Emulsion Intravenous 1,920 ml @ 80 mls/hr TPN CONT IV Last administered on 10/14/19at 21:32; Start 10/14/19 at 22:00; Stop 10/15/19 at 21:59; Status DC Sodium Chloride 80 meq/Potassium Chloride 30 meq/ Potassium Acetate 30 meq/Magnesium Sulfate 14 meq/ Multivitamins 10 ml/Chromium/ Copper/Manganese/ Seleni/Zn 1 ml/ Insulin Human Regular 15 unit/ Total Parenteral Nutrition/Amino Acids/Dextrose/ Fat Emulsion Intravenous 1,920 ml @ 80 mls/hr TPN CONT IV Last administered on 10/15/19at 21:53; Start 10/15/19 at 22:00; Stop 10/16/19 at 21:59; Status DC Acetylcysteine (Mucomyst 20% Resp Treatment) 600 mg RTBID NEB Last administered on 11/15/19at 08:00; Start 10/15/19 at 12:00 Sodium Chloride 80 meq/Potassium Chloride 30 meq/ Potassium Acetate 30 meq/Magnesium Sulfate 14 meq/ Multivitamins 10 ml/Chromium/ Copper/Manganese/ Seleni/Zn 1 ml/ Insulin Human Regular 15 unit/ Total Parenteral Nutrition/Amino Acids/Dextrose/ Fat Emulsion Intravenous 1,920 ml @ 80 mls/hr TPN CONT IV Last administered on 10/16/19at 22:06; Start 10/16/19 at 22:00; Stop 10/17/19 at 21:59; Status DC Meropenem 500 mg/ Sodium Chloride 50 ml @ 100 mls/hr Q6HRS IV Last administered on 11/08/19at 06:15; Start 10/16/19 at 18:00; Stop 11/08/19 at 08:23; Status DC Daptomycin 500 mg/ Sodium Chloride 50 ml @ 100 mls/hr Q24H IV Last administered on 10/24/19at 21:47; Start 10/16/19 at 19:00; Stop 10/25/19 at 08:13; Status DC Sodium Chloride 80 meq/Potassium Chloride 30 meq/ Potassium Acetate 30 meq/Magnesium Sulfate 14 meq/ Multivitamins 10 ml/Chromium/ Copper/Manganese/ Seleni/Zn 1 ml/ Insulin Human Regular 15 unit/ Total Parenteral Nutrition/Amino Acids/Dextrose/ Fat Emulsion Intravenous 1,920 ml @ 80 mls/hr TPN CONT IV Las t administered on 10/17/19at 22:09; Start 10/17/19 at 22:00; Stop 10/18/19 at 21:59; Status DC Heparin Sodium (Porcine) 1000 unit/Sodium Chloride 1,001 ml @ 1,001 mls/hr 1X ONCE IRR ; Start 10/18/19 at 06:00; Stop 10/18/19 at 06:59; Status DC Propofol (Diprivan) 200 mg STK-MED ONCE IV ; Start 10/18/19 at 07:44; Stop 10/18/19 at 07:44; Status DC Lidocaine HCl (Lidocaine Pf 2% Vial) 5 ml STK-MED ONCE .ROUTE ; Start 10/18/19 at 07:44; Stop 10/18/19 at 07:44; Status DC Fentanyl Citrate (Fentanyl 2ml Vial) 100 mcg STK-MED ONCE .ROUTE ; Start 10/18/19 at 07:44; Stop 10/18/19 at 07:44; Status DC Rocuronium [place] (Zemuron) 100 mg STK-MED ONCE .ROUTE ; Start 10/18/19 at 07:44; Stop 10/18/19 at 07:44; Status DC Micafungin Sodium 100 mg/Dextrose 100 ml @ 100 mls/hr Q24H IV Last administered on 11/15/19at 08:22; Start 10/18/19 at 08:30 Bupivacaine HCl/ Epinephrine Bitart (Sensorcain-Epi 0.5%-1:266140 Mpf) 30 ml STK-MED ONCE .ROUTE ; Start 10/18/19 at 08:34; Stop 10/18/19 at 08:35; Status DC Iohexol (Omnipaque 300 Mg/ml) 50 ml STK-MED ONCE .ROUTE Last administered on 10/18/19at 13:30; Start 10/18/19 at 08:35; Stop 10/18/19 at 08:35; Status DC Sodium Chloride 80 meq/Potassium Chloride 30 meq/ Potassium Acetate 30 meq/Magnesium Sulfate 14 meq/ Multivitamins 10 ml/Chromium/ Copper/Manganese/ Seleni/Zn 1 ml/ Insulin Human Regular 15 unit/ Total Parenteral Nutrition/Amino Acids/Dextrose/ Fat Emulsion Intravenous 1,920 ml @ 80 mls/hr TPN CONT IV Last administered on 10/19/19at 01:22; Start 10/18/19 at 22:00; Stop 10/19/19 at 21:59; Status DC Phenylephrine HCl (Brayden-Synephrine Inj) 10 mg STK-MED ONCE .ROUTE ; Start 10/18/19 at 10:15; Stop 10/18/19 at 10:15; Status DC Desflurane (Suprane) 90 ml STK-MED ONCE IH ; Start 10/18/19 at 10:18; Stop 10/18/19 at 10:19; Status DC Albumin Human 500 ml @ As Directed STK-MED ONCE IV ; Start 10/18/19 at 11:06; Stop 10/18/19 at 11:06; Status DC Vasopressin (Vasostrict) 20 unit STK-MED ONCE .ROUTE ; Start 10/18/19 at 12:23; Stop 10/18/19 at 12:23; Status DC Phenylephrine HCl (Brayden-Synephrine Inj) 10 mg STK-MED ONCE .ROUTE ; Start 10/18/19 at 13:33; Stop 10/18/19 at 13:33; Status DC Phenylephrine HCl (Brayden-Synephrine Inj) 10 mg STK-MED ONCE .ROUTE ; Start 10/18/19 at 13:33; Stop 10/18/19 at 13:33; Status DC Ondansetron HCl (Zofran) 4 mg STK-MED ONCE .ROUTE ; Start 10/18/19 at 13:33; Stop 10/18/19 at 13:33; Status DC Enoxaparin Sodium (Lovenox 40mg Syringe) 40 mg Q24H SQ Last administered on 11/15/19at 08:22; Start 10/19/19 at 08:00 Sodium Chloride (Normal Saline Flush) 3 ml QSHIFT PRN IV AFTER MEDS AND BLOOD DRAWS; Start 10/18/19 at 14:45 Naloxone HCl (Narcan) 0.4 mg PRN Q2MIN PRN IV SEE INSTRUCTIONS; Start 10/18/19 at 14:45 Sodium Chloride 1,000 ml @ 25 mls/hr Q24H IV Last administered on 11/14/19at 14:33; Start 10/18/19 at 14:33 Morphine Sulfate (Morphine Sulfate) 1 mg PRN Q1HR PRN IV PAIN Last administered on 11/12/19at 18:28; Start 10/18/19 at 14:45 Midazolam HCl 100 mg/Sodium Chloride 100 ml @ 1 mls/hr CONT PRN IV SEE I/O RECORD Last administered on 10/21/19at 18:48; Start 10/18/19 at 14:45 Phenylephrine HCl (PHENYLEPHRINE in 0.9% NACL PF) 1 mg STK-MED ONCE IV ; Start 10/18/19 at 14:44; Stop 10/18/19 at 14:45; Status DC Ephedrine Sulfate (ePHEDrine PF IN SALINE SYRINGE) 50 mg STK-MED ONCE IV ; Start 10/18/19 at 14:45; Stop 10/18/19 at 14:45; Status DC Vasopressin 20 unit/Dextrose 101 ml @ 12 mls/hr CONT PRN IV SEE I/O RECORD Last administered on 10/25/19at 04:17; Start 10/18/19 at 15:30 Sodium Chloride 1,000 ml @ 1,000 mls/hr 1X ONCE IV Last administered on 10/18/19at 15:42; Start 10/18/19 at 15:45; Stop 10/18/19 at 16:44; Status DC Albumin Human 500 ml @ 125 mls/hr 1X ONCE IV ; Start 10/18/19 at 16:00; Stop 10/18/19 at 19:59; Status DC Albumin Human 500 ml @ 125 mls/hr PRN Q1HR PRN IV PER PROTOCOL; Start 10/18/19 at 15:45 Magnesium Sulfate 50 ml @ 25 mls/hr 1X ONCE IV Last administered on 10/18/19at 17:02; Start 10/18/19 at 16:30; Stop 10/18/19 at 18:29; Status DC Sodium Bicarbonate (Sodium Bicarb Adult 8.4% Syr) 50 meq STK-MED ONCE .ROUTE ; Start 10/18/19 at 16:20; Stop 10/18/19 at 16:20; Status DC Sodium Bicarbonate (Sodium Bicarb Adult 8.4% Syr) 100 meq 1X ONCE IV Last administered on 10/18/19at 17:07; Start 10/18/19 at 16:30; Stop 10/18/19 at 16:31; Status DC Sodium Bicarbonate 150 meq/Dextrose 1,150 ml @ 75 mls/hr 1X ONCE IV Last administered on 10/18/19at 20:02; Start 10/18/19 at 16:30; Stop 10/19/19 at 07:49; Status DC Sodium Chloride 80 meq/Potassium Chloride 30 meq/ Potassium Acetate 30 meq/Magnesium Sulfate 14 meq/ Multivitamins 10 ml/Chromium/ Copper/Manganese/ Seleni/Zn 1 ml/ Insulin Human Regular 15 unit/ Total Parenteral Nutrition/Amino Acids/Dextrose/ Fat Emulsion Intravenous 1,920 ml @ 80 mls/hr TPN CONT IV Last administered on 10/19/19at 23:05; Start 10/19/19 at 22:00; Stop 10/20/19 at 21:59; Status DC Sodium Chloride 100 meq/Potassium Chloride 30 meq/ Potassium Acetate 30 meq/Magnesium Sulfate 12 meq/ Multivitamins 10 ml/Chromium/ Copper/Manganese/ Seleni/Zn 1 ml/ Insulin Human Regular 15 unit/ Total Parenteral Nutrition/Amino Acids/Dextrose/ Fat Emulsion Intravenous 1,920 ml @ 80 mls/hr TPN CONT IV Last administered on 10/20/19at 21:52; Start 10/20/19 at 22:00; Stop 10/21/19 at 21:59; Status DC Sodium Chloride 100 meq/Potassium Chloride 30 meq/ Potassium Acetate 30 meq/Magnesium Sulfate 12 meq/ Multivitamins 10 ml/Chromium/ Copper/Manganese/ Seleni/Zn 1 ml/ Insulin Human Regular 15 unit/ Total Parenteral Nutrition/Amino Acids/Dextrose/ Fat Emulsion Intravenous 1,920 ml @ 80 mls/hr TPN CONT IV Last administered on 10/21/19at 21:46; Start 10/21/19 at 22:00; Stop 10/22/19 at 21:59; Status DC Sodium Chloride 100 meq/Potassium Chloride 30 meq/ Potassium Acetate 30 meq/Magnesium Sulfate 12 meq/ Multivitamins 10 ml/Chromium/ Copper/Manganese/ Seleni/Zn 1 ml/ Insulin Human Regular 15 unit/ Total Parenteral Nutrition/Amino Acids/Dextrose/ Fat Emulsion Intravenous 1,800 ml @ 75 mls/hr TPN CONT IV Last administered on 10/22/19at 22:04; Start 10/22/19 at 22:00; Stop 10/23/19 at 21:59; Status DC Fentanyl Citrate 55 ml @ 0 mls/hr CONT PRN IV SEE COMMENTS Last administered on 10/24/19at 23:55; Start 10/22/19 at 13:00; Stop 10/27/19 at 17:28; Status DC Sodium Chloride 100 meq/Potassium Chloride 30 meq/ Potassium Acetate 30 meq/Magnesium Sulfate 12 meq/ Multivitamins 10 ml/Chromium/ Copper/Manganese/ Seleni/Zn 1 ml/ Insulin Human Regular 15 unit/ Total Parenteral Nutrition/Amino Acids/Dextrose/ Fat Emulsion Intravenous 1,680 ml @ 70 mls/hr TPN CONT IV Last administered on 10/23/19at 21:23; Start 10/23/19 at 22:00; Stop 10/24/19 at 21:59; Status DC Sodium Chloride 110 meq/Potassium Chloride 30 meq/ Potassium Acetate 30 meq/Magnesium Sulfate 15 meq/ Multivitamins 10 ml/Chromium/ Copper/Manganese/ Seleni/Zn 1 ml/ Insulin Human Regular 15 unit/ Total Parenteral Nutrition/Amino Acids/Dextrose/ Fat Emulsion Intravenous 1,680 ml @ 70 mls/hr TPN CONT IV Last administered on 10/24/19at 21:48; Start 10/24/19 at 22:00; Stop 10/25/19 at 21:59; Status DC Sodium Chloride 110 meq/Potassium Chloride 30 meq/ Potassium Acetate 30 meq/Magnesium Sulfate 15 meq/ Multivitamins 10 ml/Chromium/ Copper/Manganese/ Seleni/Zn 1 ml/ Insulin Human Regular 15 unit/ Total Parenteral Nutrition/Amino Acids/Dextrose/ Fat Emulsion Intravenous 1,680 ml @ 70 mls/hr TPN CONT IV Last administered on 10/25/19at 21:33; Start 10/25/19 at 22:00; Stop 10/26/19 at 21:59; Status DC Sodium Chloride 110 meq/Potassium Chloride 30 meq/ Potassium Acetate 30 meq/Magnesium Sulfate 15 meq/ Multivitamins 10 ml/Chromium/ Copper/Manganese/ Seleni/Zn 1 ml/ Insulin Human Regular 15 unit/ Total Parenteral Nutrition/Amino Acids/Dextrose/ Fat Emulsion Intravenous 1,680 ml @ 70 mls/hr TPN CONT IV Last administered on 10/26/19at 21:51; Start 10/26/19 at 22:00; Stop 10/27/19 at 21:59; Status DC Sodium Chloride 90 meq/Potassium Chloride 30 meq/ Potassium Acetate 30 meq/Magnesium Sulfate 15 meq/ Multivitamins 10 ml/Chromium/ Copper/Manganese/ Seleni/Zn 1 ml/ Insulin Human Regular 15 unit/ Total Parenteral Nutrition/Amino Acids/Dextrose/ Fat Emulsion Intravenous 1,680 ml @ 70 mls/hr TPN CONT IV Last administered on 10/27/19at 22:38; Start 10/27/19 at 22:00; Stop 10/28/19 at 21:59; Status DC Fentanyl Citrate 30 ml @ 0 mls/hr CONT PRN IV SEE I/O RECORD; Start 10/27/19 at 17:30 Fentanyl (Duragesic 12mcg/ Hr Patch) 1 patch Q3DAYS TD Last administered on 11/15/19at 08:21; Start 10/28/19 at 09:00 Sodium Chloride 90 meq/Potassium Chloride 30 meq/ Potassium Acetate 30 meq/Magnesium Sulfate 15 meq/ Multivitamins 10 ml/Chromium/ Copper/Manganese/ Seleni/Zn 1 ml/ Insulin Human Regular 15 unit/ Total Parenteral Nutrition/Amino Acids/Dextrose/ Fat Emulsion Intravenous 1,680 ml @ 70 mls/hr TPN CONT IV Last administered on 10/28/19at 21:59; Start 10/28/19 at 22:00; Stop 10/29/19 at 21:59; Status DC Sodium Chloride 90 meq/Potassium Chloride 30 meq/ Potassium Acetate 30 meq/Magnesium Sulfate 15 meq/ Multivitamins 10 ml/Chromium/ Copper/Manganese/ Seleni/Zn 1 ml/ Insulin Human Regular 15 unit/ Total Parenteral Nutrition/Amino Acids/Dextrose/ Fat Emulsion Intravenous 1,680 ml @ 70 mls/hr TPN CONT IV Last administered on 10/29/19at 21:35; Start 10/29/19 at 22:00; Stop 10/30/19 at 21:59; Status DC Vancomycin HCl (Vanco Per Pharmacy) 1 each PRN DAILY PRN MC SEE COMMENTS Last administered on 11/01/19at 02:46; Start 10/30/19 at 09:15; Stop 11/02/19 at 07:41; Status DC Ciprofloxacin/ Dextrose 200 ml @ 200 mls/hr Q12HR IV Last administered on 11/07/19at 21:02; Start 10/30/19 at 10:00; Stop 11/08/19 at 08:20; Status DC Vancomycin HCl 2 gm/Sodium Chloride 500 ml @ 250 mls/hr 1X ONCE IV Last administered on 10/30/19at 10:34; Start 10/30/19 at 10:00; Stop 10/30/19 at 11:59; Status DC Sodium Chloride 90 meq/Potassium Chloride 30 meq/ Potassium Acetate 30 meq/Magnesium Sulfate 15 meq/ Multivitamins 10 ml/Chromium/ Copper/Manganese/ Seleni/Zn 1 ml/ Insulin Human Regular 15 unit/ Total Parenteral Nutrition/Amino Acids/Dextrose/ Fat Emulsion Intravenous 1,680 ml @ 70 mls/hr TPN CONT IV Last administered on 10/30/19at 22:02; Start 10/30/19 at 22:00; Stop 10/31/19 at 21:59; Status DC Diphenhydramine HCl (Benadryl) 25 mg 1X ONCE IVP Last administered on 10/30/19at 14:26; Start 10/30/19 at 14:30; Stop 10/30/19 at 14:31; Status DC Vancomycin HCl 1.5 gm/Sodium Chloride 500 ml @ 250 mls/hr Q8H IV Last adm inistered on 10/31/19at 03:08; Start 10/30/19 at 18:30; Stop 10/31/19 at 12:24; Status DC Vancomycin HCl (Vancomycin Trough Level) 1 each 1X ONCE MC Last administered on 10/31/19at 10:00; Start 10/31/19 at 10:00; Stop 10/31/19 at 10:01; Status DC Sodium Chloride 90 meq/Potassium Chloride 30 meq/ Potassium Acetate 30 meq/Magnesium Sulfate 15 meq/ Multivitamins 10 ml/Chromium/ Copper/Manganese/ Seleni/Zn 1 ml/ Insulin Human Regular 15 unit/ Total Parenteral Nutrition/Amino Acids/Dextrose/ Fat Emulsion Intravenous 1,680 ml @ 70 mls/hr TPN CONT IV Last administered on 10/31/19at 22:13; Start 10/31/19 at 22:00; Stop 11/01/19 at 21:59; Status DC Vancomycin HCl (Vancomycin Random Level) 1 each 1X ONCE MC Last administered on 11/01/19at 01:00; Start 11/01/19 at 01:00; Stop 11/01/19 at 01:01; Status DC Vancomycin HCl 1.5 gm/Sodium Chloride 500 ml @ 250 mls/hr Q12H IV Last administered on 11/01/19at 22:07; Start 11/01/19 at 10:00; Stop 11/02/19 at 07:41; Status DC Vancomycin HCl (Vancomycin Trough Level) 1 each 1X ONCE MC ; Start 11/02/19 at 09:30; Stop 11/02/19 at 09:31; Status Cancel Sodium Chloride 90 meq/Potassium Chloride 30 meq/ Potassium Acetate 30 meq/Magnesium Sulfate 15 meq/ Multivitamins 10 ml/Chromium/ Copper/Manganese/ Seleni/Zn 1 ml/ Insulin Human Regular 15 unit/ Total Parenteral Nutrition/Amino Acids/Dextrose/ Fat Emulsion Intravenous 1,680 ml @ 70 mls/hr TPN CONT IV Last administered on 11/01/19at 22:08; Start 11/01/19 at 22:00; Stop 11/02/19 at 21:59; Status DC Alteplase, Recombinant (Cathflo For Central Catheter Clearance) 1 mg 1X ONCE INT CAT Last administered on 11/01/19at 11:49; Start 11/01/19 at 11:00; Stop 11/01/19 at 11:01; Status DC Daptomycin 500 mg/ Sodium Chloride 50 ml @ 100 mls/hr Q24H IV Last administered on 11/11/19at 08:25; Start 11/02/19 at 09:00; Stop 11/11/19 at 08:38; Status DC Sodium Chloride 90 meq/Potassium Chloride 30 meq/ Potassium Acetate 30 meq/Magnesium Sulfate 15 meq/ Multivitamins 10 ml/Chromium/ Copper/Manganese/ Seleni/Zn 1 ml/ Insulin Human Regular 15 unit/ Total Parenteral Nutrition/Amino Acids/Dextrose/ Fat Emulsion Intravenous 1,680 ml @ 70 mls/hr TPN CONT IV Last administered on 11/02/19at 22:55; Start 11/02/19 at 22:00; Stop 11/03/19 at 21:59; Status DC Sodium Chloride 90 meq/Potassium Chloride 30 meq/ Potassium Acetate 30 meq/Magnesium Sulfate 15 meq/ Multivitamins 10 ml/Chromium/ Copper/Manganese/ Seleni/Zn 1 ml/ Insulin Human Regular 15 unit/ Total Parenteral Nutrition/Amino Acids/Dextrose/ Fat Emulsion Intravenous 1,680 ml @ 70 mls/hr TPN CONT IV Last administered on 11/03/19at 22:06; Start 11/03/19 at 22:00; Stop 11/04/19 at 21:59; Status DC Diphenhydramine HCl (Benadryl) 50 mg STK-MED ONCE .ROUTE ; Start 11/03/19 at 18:34; Stop 11/03/19 at 18:35; Status DC Diphenhydramine HCl (Benadryl) 25 mg 1X ONCE IM ; Start 11/03/19 at 18:45; Stop 11/03/19 at 18:46; Status DC Diphenhydramine HCl (Benadryl) 25 mg 1X ONCE IVP Last administered on 11/03/19at 18:56; Start 11/03/19 at 19:00; Stop 11/03/19 at 19:01; Status DC Alprazolam (Xanax) 0.5 mg PRN TID PRN PO ANXIETY / AGITATION Last administered on 11/10/19at 11:49; Start 11/04/19 at 08:00; Stop 11/10/19 at 15:54; Status DC Sodium Chloride 110 meq/Potassium Chloride 30 meq/ Potassium Acetate 30 meq/Magnesium Sulfate 15 meq/ Multivitamins 10 ml/Chromium/ Copper/Manganese/ Seleni/Zn 1 ml/ Insulin Human Regular 15 unit/ Total Parenteral Nutrition/Amino Acids/Dextrose/ Fat Emulsion Intravenous 1,680 ml @ 70 mls/hr TPN CONT IV Last administered on 11/04/19at 21:21; Start 11/04/19 at 22:00; Stop 11/05/19 at 21:59; Status DC Sodium Chloride 110 meq/Potassium Chloride 30 meq/ Potassium Acetate 30 meq/Magnesium Sulfate 15 meq/ Multivitamins 10 ml/Chromium/ Copper/Manganese/ Seleni/Zn 1 ml/ Insulin Human Regular 15 unit/ Total Parenteral Nutrition/Amino Acids/Dextrose/ Fat Emulsion Intravenous 1,680 ml @ 70 mls/hr TPN CONT IV Last administered on 11/05/19at 22:01; Start 11/05/19 at 22:00; Stop 11/06/19 at 21:59; Status DC Alteplase, Recombinant (Cathflo For Central Catheter Clearance) 1 mg 1X ONCE INT CAT Last administered on 11/06/19at 08:23; Start 11/06/19 at 08:15; Stop 11/06/19 at 08:16; Status DC Sodium Chloride 110 meq/Sodium Phosphate 10 mmol/ Potassium Chloride 30 meq/ Potassium Acetate 30 meq/Magnesium Sulfate 15 meq/ Multivitamins 10 ml/Chromium/ Copper/Manganese/ Seleni/Zn 1 ml/ Insulin Human Regular 15 unit/ Total Parenteral Nutrition/Amino Acids/Dextrose/ Fat Emulsion Intravenous 1,680 ml @ 70 mls/hr TPN CONT IV Last administered on 11/06/19at 22:03; Start 11/06/19 at 22:00; Stop 11/07/19 at 21:59; Status DC Sodium Chloride 120 meq/Sodium Phosphate 10 mmol/ Potassium Chloride 30 meq/ Potassium Acetate 30 meq/Magnesium Sulfate 15 meq/ Multivitamins 10 ml/Chromium/ Copper/Manganese/ Seleni/Zn 1 ml/ Insulin Human Regular 15 unit/ Total Janett ral Nutrition/Amino Acids/Dextrose/ Fat Emulsion Intravenous 1,680 ml @ 70 mls/hr TPN CONT IV Last administered on 11/07/19at 22:08; Start 11/07/19 at 22:00; Stop 11/08/19 at 21:59; Status DC Ceftazidime/ Avibactam 2.5 gm/ Sodium Chloride 100 ml @ 50 mls/hr Q8HRS IV Last administered on 11/09/19at 05:32; Start 11/08/19 at 14:00; Stop 11/09/19 at 07:48; Status DC Alteplase, Recombinant (Cathflo For Central Catheter Clearance) 1 mg 1X ONCE INT CAT Last administered on 11/08/19at 09:30; Start 11/08/19 at 09:30; Stop 11/08/19 at 09:31; Status DC Sodium Chloride 120 meq/Sodium Phosphate 10 mmol/ Potassium Chloride 30 meq/ Potassium Acetate 30 meq/Magnesium Sulfate 15 meq/ Multivitamins 10 ml/Chromium/ Copper/Manganese/ Seleni/Zn 1 ml/ Insulin Human Regular 15 unit/ Total Parenteral Nutrition/Amino Acids/Dextrose/ Fat Emulsion Intravenous 1,680 ml @ 70 mls/hr TPN CONT IV Last administered on 11/08/19at 22:11; Start 11/08/19 at 22:00; Stop 11/09/19 at 21:59; Status DC Iohexol (Omnipaque 300 Mg/ml) 75 ml 1X ONCE IV Last administered on 11/08/19at 11:30; Start 11/08/19 at 11:30; Stop 11/08/19 at 11:31; Status DC Info (CONTRAST GIVEN -- Rx MONITORING) 1 each PRN DAILY PRN MC SEE COMMENTS; Start 11/08/19 at 11:45; Stop 11/10/19 at 11:44; Status DC Alteplase, Recombinant (Cathflo For Central Catheter Clearance) 1 mg 1X ONCE INT CAT Last administered on 11/08/19at 12:17; Start 11/08/19 at 12:00; Stop 11/08/19 at 12:01; Status DC Cefepime HCl (Maxipime) 2 gm Q12HR IVP Last administered on 11/09/19at 20:53; S tart 11/09/19 at 09:00; Stop 11/10/19 at 07:30; Status DC Sodium Chloride 120 meq/Sodium Phosphate 10 mmol/ Potassium Chloride 30 meq/ Potassium Acetate 30 meq/Magnesium Sulfate 15 meq/ Multivitamins 10 ml/Chromium/ Copper/Manganese/ Seleni/Zn 1 ml/ Insulin Human Regular 15 unit/ Total Parenteral Nutrition/Amino Acids/Dextrose/ Fat Emulsion Intravenous 1,680 ml @ 70 mls/hr TPN CONT IV Last administered on 11/09/19at 21:25; Start 11/09/19 at 22:00; Stop 11/10/19 at 21:59; Status DC Ceftazidime/ Avibactam 2.5 gm/ Sodium Chloride 250 ml @ 125 mls/hr Q8HRS IV Last administered on 11/15/19at 06:21; Start 11/10/19 at 08:00 Sodium Chloride 120 meq/Sodium Phosphate 10 mmol/ Potassium Chloride 30 meq/ Potassium Acetate 30 meq/Magnesium Sulfate 15 meq/ Multivitamins 10 ml/Chromium/ Copper/Manganese/ Seleni/Zn 1 ml/ Insulin Human Regular 15 unit/ Total Parenteral Nutrition/Amino Acids/Dextrose/ Fat Emulsion Intravenous 1,680 ml @ 70 mls/hr TPN CONT IV Last administered on 11/10/19at 22:35; Start 11/10/19 at 22:00; Stop 11/11/19 at 21:59; Status DC Alprazolam (Xanax) 0.5 mg PRN QID PRN PO ANXIETY / AGITATION Last administered on 11/14/19at 14:21; Start 11/10/19 at 16:00 Acetaminophen/ Hydrocodone Bitart (Lortab 5/325) 1 tab PRN Q4HRS PRN PO PAIN Last administered on 11/11/19at 19:34; Start 11/10/19 at 16:00 Sodium Chloride 120 meq/Sodium Phosphate 10 mmol/ Potassium Chloride 30 meq/ Potassium Acetate 30 meq/Magnesium Sulfate 15 meq/ Multivitamins 10 ml/Chromium/ Copper/Manganese/ Seleni/Zn 1 ml/ Insulin Human Regular 15 unit/ Total Parenteral Nutrition/Amino Acids/Dextrose/ Fat Emulsion Intravenous 1,680 ml @ 70 mls/hr TPN CONT IV Last administered on 11/11/19at 21:50; Start 11/11/19 at 22:00; Stop 11/12/19 at 21:59; Status DC Sodium Chloride 120 meq/Sodium Phosphate 10 mmol/ Potassium Chloride 30 meq/ Potassium Acetate 30 meq/Magnesium Sulfate 15 meq/ Multivitamins 10 ml/Chromium/ Copper/Manganese/ Seleni/Zn 1 ml/ Insulin Human Regular 15 unit/ Total Parenteral Nutrition/Amino Acids/Dextrose/ Fat Emulsion Intravenous 1,680 ml @ 70 mls/hr TPN CONT IV Last administered on 11/12/19at 22:14; Start 11/12/19 at 22:00; Stop 11/13/19 at 21:59; Status DC Daptomycin 500 mg/ Sodium Chloride 50 ml @ 100 mls/hr Q24H IV Last administered on 11/14/19at 09:48; Start 11/13/19 at 09:00 Sodium Chloride 120 meq/Sodium Phosphate 10 mmol/ Potassium Chloride 30 meq/ Potassium Acetate 30 meq/Magnesium Sulfate 15 meq/ Multivitamins 10 ml/Chromium/ Copper/Manganese/ Seleni/Zn 1 ml/ Insulin Human Regular 15 unit/ Total Parenteral Nutrition/Amino Acids/Dextrose/ Fat Emulsion Intravenous 1,680 ml @ 70 mls/hr TPN CONT IV ; Start 11/13/19 at 22:00; Stop 11/14/19 at 21:59; Status Cancel Amino Acids/ Glycerin/ Electrolytes 1,000 ml @ 80 mls/hr [id number] IV Last administered on 11/15/19at 08:20; Start 11/13/19 at 10:15 Active Scripts Active Reported Bisoprolol Fumarate 5 Mg Tablet 10 Mg PO DAILY Vitals/I & O Vital Sign - Last 24 Hours 11/14/19 11/14/19 11/14/19 11/14/19 11:00 11:39 12:09 12:09 Temp 97.6 97.6 Pulse 130 Resp 49 30 B/P (MAP) 124/84 (97) Pulse Ox 98 95 95 O2 Delivery Nasal Cannula Nasal Cannula Nasal Cannula Nasal Cannula O2 Flow Rate 2.0 2.0 2.0 2.0 11/14/19 11/14/19 11/14/19 11/14/19 15:00 16:00 18:00 18:16 Pulse 132 120 Resp 41 30 B/P (MAP) 146/87 (106) 117/76 (90) Pulse Ox 97 96 97 96 O2 Delivery Nasal Cannula Nasal Cannula Nasal Cannula Nasal Cannula O2 Flow Rate 2.0 2.0 2.0 2.0 11/14/19 11/14/19 11/14/19 11/14/19 19:00 19:43 20:00 23:00 Temp 98.7 99.2 98.7 99.2 Pulse 119 120 Resp 25 24 B/P (MAP) 130/73 (92) 115/81 (92) Pulse Ox 98 96 97 O2 Delivery Nasal Cannula Nasal Cannula Nasal Cannula Nasal Cannula O2 Flow Rate 2.0 2.0 2.0 2.0 11/15/19 11/15/19 11/15/19 11/15/19 00:11 03:00 04:36 08:15 Temp 99.1 99.1 Pulse 122 Resp 34 B/P (MAP) 121/72 (88) Pulse Ox 98 95 96 96 O2 Delivery Nasal Cannula Nasal Cannula Nasal Cannula Nasal Cannula O2 Flow Rate 2.0 2.0 2.0 2.0 11/15/19 08:21 Resp 31 Pulse Ox 95 O2 Delivery Nasal Cannula O2 Flow Rate 2.0 Intake and Output 11/14/19 11/14/19 11/15/19 15:00 23:00 07:00 Intake Total 2387 ml Output Total 685 ml 940 ml 960 ml Balance -685 ml -940 ml 1427 ml Justicifation of Admission Dx: Justifications for Admission: Justification of Admission Dx: Yes JOVANY HARRISON MD Nov 15, 2019 09:19
[2019-11-15] MEDS: DAPTOmycin (GENERIC) IVPB 500 MG in IV NORMAL SALINE 50ML 50 ML IV SCH (10:10)
[2019-11-15] MEDS ORDERED: IOHEXOL 300 MG/ML 50 ML VIAL. IJ ONE (11:00)
--- NOTE | 2019-11-15 11:07 | PDOC ---
[facility] [facility] PROGRESS NOTE Chief Complaint Chief Complaint S/P Exp. 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 parapsilosis & PSAE (I-merrem/ceftazidime/AZT/cefepime)) Leucocytosis -trending upward Fever Acute gallstone pancreatitis with persistent necrosis Postop (Exploratory laparotomy, lysis of adhesions, subtotal cholecystectomy with cholangiogram, gastrojejunostomy tube placement, pancreatic necrosectomy) Acute hypoxic Respiratory failure required mechanical ventilation Tracheostomy bilateral pleural effusions/pulm edema s/p Throacentesis on 10/03/2019 Severe Acute gallstone pancreatitis (not a surgical candidate at this time) with necrosis Acute kidney failure now requiring dialysis Gallstones (Calculus of gallbladder with acute cholecystitis without obstru ction) HTN Intractable pain Intractable nausea Covid 19 negative. Acute on chronic anemia EEG: No seizure activity Fever - intermittent ? Ileus with vomiting Abd distention - U/S and CT reviewed s/p 0.4 L of opaque, debris-containing ascites was removed 08/23 Acute pancreatitis with persistent necrosis Gallstone pancreatitis with necrosis. -CT A/P 09/23 showed multiple pseudocysts, slight larger on the right. s/p drains x 3, 09/24. + PSAE (MDRO-R Cefepime, Zosyn ALEXANDRA < 64) and yeast, -s/p drain 08/14. C. parapsilosis. s/p drain 08/23 + yeast & high amylase; s/p additional drain on 08/25. Drains removed. Ascites s/p paracentesis 08/02 & 08/23. C. parapsilosis JUANA. off HD. A large fluid collection in the pancreatic bed has slightly decreased in size, described below, the pancreas itself is difficult to visualize, which could be due to necrosis or obscuration of pancreatic parenchyma from the surrounding fluid collection.10/02 - 08/14 status post KAYLIN drain placement + C paropsilosis. s/p additional drains 08/25 Anemia - S/p PRBCs. Cholelithiasis with thickening of the gallbladder wall. Leucocytosis improving JUANA, hyperkalemia, Metabolic acidosis off dialysis hypocalcemia Prediabetes HTN s/p trach Hyperglycemia severe protein-caloric malnutrition Moderate to large left pleural effusion with atelectasis and collapse of most of the left lower lobe, stable Extensive retroperitoneal fluid collections persist. Percutaneous drains remain within the collections in both paracolic gutters. These communicate with additi onal pelvic and peripancreatic collections. PLAN Continue Avycaz /micafungin, DC dapto per ID recommendations Negative C diff BC from 11/01 neg to date 11/12 PICC line removed will start PPN for 24 hours then replace PICC line other side Follow surgery input regarding diet and drains, pending GJ tube placement with IR before restarting tube feeds. DVT GI prophylaxis f/u BC /resp cultures continue DVT/GI PPX Discussed with RN 40 MIN CC TIME History of Present Illness History of Present Illness 11/15/2019 Patient seen and examined bedside. Patient appears to be in no obvious pain. All drains have been adequately draining. Patient continues to be on TPN. Chart labs and imaging was reviewed. Negative fluid balance of 270 cc 11/14/2019 Patient seen and examined in the ICU. Patient still requires extensive care. 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 Chart, labs, imaging was reviewed. UOP with + 500cc balance. 11/11 Patient seen in and examined in the ICU She is still extremely critically ill Appears weak, frail, and pale Better color today with improved eye contact and expression Discussed with RN Chart reviewed 11/08/2019 Patient seen and examined in the ICU She is still extremely critically ill Appears extremely weak frail and pale Discussed with RN Chart reviewed Vitals/I&O Vitals/I&O: Vital Signs Date Time Temp Pulse Resp B/P (MAP) Pulse Ox O2 Delivery O2 Flow Rate FiO2 11/15/19 08:21 31 95 Nasal Cannula 2.0 11/15/19 07:00 99.2 120 111/71 (84) 99.2 I & O 11/14/19 11/14/19 11/15/19 15:00 23:00 07:00 Intake Total 2387 ml Output Total 685 ml 940 ml 960 ml Balance -685 ml -940 ml 1427 ml Physical Exam Physical Exam: GENERAL: pt in bed, appears weak -comfortable -alert HEENT: Pupils equal, oral cavity dry. OC/Op - Dry NECK: Tracheostomy - no JVD LUNGS: Diminished aeration bases, CT on left HEART: S1, S2, ABDOMEN: Distended mild- bowel sounds hypoactive, soft, goyal x 2, KAYLIN drains, G-J tube : Lind in place EXTREMITIES: Trace generalized edema, no cyanosis. RADHA hose bilaterally, SKIN: warm touch. No signs of rash. LUE- PICC without signs of complications NEURO: - Alert and responsive General: Cooperative, No acute distress Heart: Other (distant heart sounds, tachycardic) Lungs: Crackles Abdomen: Soft (drains in place, wound vac in place) Extremities: Other (Diffuse edema) Skin: No rashes, No significant lesion Labs Labs: Laboratory Tests Test 11/14/19 12:46 11/14/19 17:29 11/14/19 23:53 11/15/19 05:45 Glucose (Fingerstick) 141 mg/dL (70-99) 135 mg/dL (70-99) 106 mg/dL (70-99) White Blood Count 16.6 x10^3/uL (4.0-11.0) Red Blood Count 2.90 x10^6/uL (3.50-5.40) Hemoglobin 8.2 g/dL (12.0-15.5) Hematocrit 24.4 % (36.0-47.0) Mean Corpuscular Volume 84 fL (79-100) Mean Corpuscular Hemoglobin 28 pg (25-35) Mean Corpuscular Hemoglobin Concent 34 g/dL (31-37) Red Cell Distribution Width 15.8 % (11.5-14.5) Platelet Count 576 x10^3/uL (140-400) Neutrophils (%) (Auto) 84 % (31-73) Lymphocytes (%) (Auto) 10 % (24-48) Monocytes (%) (Auto) 4 % (0-9) Eosinophils (%) (Auto) 2 % (0-3) Basophils (%) (Auto) 1 % (0-3) Neutrophils # (Auto) 13.9 x10^3/uL (1.8-7.7) Lymphocytes # (Auto) 1.6 x10^3/uL (1.0-4.8) Monocytes # (Auto) 0.7 x10^3/uL (0.0-1.1) Eosinophils # (Auto) 0.3 x10^3/uL (0.0-0.7) Basophils # (Auto) 0.1 x10^3/uL (0.0-0.2) Sodium Level 134 mmol/L (136-145) Potassium Level 4.6 mmol/L (3.5-5.1) Chloride Level 102 mmol/L (98-107) Carbon Dioxide Level 30 mmol/L (21-32) Anion Gap 2 (6-14) Blood Urea Nitrogen 11 mg/dL (7-20) Creatinine 0.6 mg/dL (0.6-1.0) Estimated GFR (Cockcroft-Gault) 106.3 BUN/Creatinine Ratio 18 (6-20) Glucose Level 115 mg/dL (70-99) Calcium Level 11.4 mg/dL (8.5-10.1) Total Bilirubin 0.5 mg/dL (0.2-1.0) Aspartate Amino Transf (AST/SGOT) 15 U/L (15-37) Alanine Aminotransferase (ALT/SGPT) 14 U/L (14-59) Alkaline Phosphatase 119 U/L (46-116) Creatine Kinase < 7 U/L (26-192) Total Protein 5.5 g/dL (6.4-8.2) Albumin 1.2 g/dL (3.4-5.0) Albumin/Globulin Ratio 0.3 (1.0-1.7) Test 11/15/19 06:23 Glucose (Fingerstick) 113 mg/dL (70-99) Review of Systems Review of Systems: CONSTITUIONAL: Denies weight loss, fever and chills. HEENT: Denies changes in vision and hearing. RESPIRATORY: Denies SOB and cough. CV: Denies palpitations and CP. GI: Denies abdominal pain, nausea, vomiting and diarrhea. : Denies dysuria and urinary frequency. MSK: Denies myalgia and joint pain. SKIN: Denies rash and pruritus. NEUROLOGICAL: Denies headache and syncope. PSYCHIATRIC: Denies recent changes in mood. Denies anxiety and depression. Assessment and Plan Assessmemt and Plan Problems Medical Problems: (1) Acute pancreatitis Status: Acute (2) Cholelithiasis Status: Acute Comment Review of Relevant I have reviewed the following items kolby (where applicable) has been applied. Justicifation of Admission Dx: Justifications for Admission: Justification of Admission Dx: Yes ADRIANNE SAM MD Nov 15, 2019 11:07
[2019-11-15 12:00] VITALS: BP 127/73
--- NOTE | 2019-11-15 12:04 | PDOC ---
[facility] PROGRESS NOTE Subjective Up in chair. Objective Discussed with staff. Still fair amount out KAYLIN's. Less out Suarez. Physical Exam Viewed from door. Multiple drains remain. On NC. Review of Relevant I have reviewed the following items kolby (where applicable) has been applied. Labs Laboratory Tests Test 11/13/19 17:39 11/14/19 00:21 11/14/19 04:10 11/14/19 04:15 Glucose (Fingerstick) 117 mg/dL (70-99) 114 mg/dL (70-99) White Blood Count 12.1 x10^3/uL (4.0-11.0) Red Blood Count 2.71 x10^6/uL (3.50-5.40) Hemoglobin 7.7 g/dL (12.0-15.5) Hematocrit 23.2 % (36.0-47.0) Mean Corpuscular Volume 85 fL (79-100) Mean Corpuscular Hemoglobin 28 pg (25-35) Mean Corpuscular Hemoglobin Concent 33 g/dL (31-37) Red Cell Distribution Width 16.0 % (11.5-14.5) Platelet Count 563 x10^3/uL (140-400) Neutrophils (%) (Auto) 78 % (31-73) Lymphocytes (%) (Auto) 12 % (24-48) Monocytes (%) (Auto) 8 % (0-9) Eosinophils (%) (Auto) 2 % (0-3) Basophils (%) (Auto) 1 % (0-3) Neutrophils # (Auto) 9.4 x10^3/uL (1.8-7.7) Lymphocytes # (Auto) 1.4 x10^3/uL (1.0-4.8) Monocytes # (Auto) 0.9 x10^3/uL (0.0-1.1) Eosinophils # (Auto) 0.3 x10^3/uL (0.0-0.7) Basophils # (Auto) 0.1 x10^3/uL (0.0-0.2) Sodium Level 135 mmol/L (136-145) Potassium Level 4.6 mmol/L (3.5-5.1) Chloride Level 103 mmol/L (98-107) Carbon Dioxide Level 25 mmol/L (21-32) Anion Gap 7 (6-14) Blood Urea Nitrogen 16 mg/dL (7-20) Creatinine 0.7 mg/dL (0.6-1.0) Estimated GFR (Cockcroft-Gault) 88.9 BUN/Creatinine Ratio 23 (6-20) Glucose Level 114 mg/dL (70-99) Calcium Level 10.9 mg/dL (8.5-10.1) Total Bilirubin 0.5 mg/dL (0.2-1.0) Aspartate Amino Transf (AST/SGOT) 18 U/L (15-37) Alanine Aminotransferase (ALT/SGPT) 13 U/L (14-59) Alkaline Phosphatase 123 U/L (46-116) Total Protein 5.4 g/dL (6.4-8.2) Albumin 1.1 g/dL (3.4-5.0) Albumin/Globulin Ratio 0.3 (1.0-1.7) Test 11/14/19 06:10 11/14/19 12:46 11/14/19 17:29 11/14/19 23:53 Glucose (Fingerstick) 116 mg/dL (70-99) 141 mg/dL (70-99) 135 mg/dL (70-99) 106 mg/dL (70-99) Test 11/15/19 05:45 11/15/19 06:23 White Blood Count 16.6 x10^3/uL (4.0-11.0) Red Blood Count 2.90 x10^6/uL (3.50-5.40) Hemoglobin 8.2 g/dL (12.0-15.5) Hematocrit 24.4 % (36.0-47.0) Mean Corpuscular Volume 84 fL (79-100) Mean Corpuscular Hemoglobin 28 pg (25-35) Mean Corpuscular Hemoglobin Concent 34 g/dL (31-37) Red Cell Distribution Width 15.8 % (11.5-14.5) Platelet Count 576 x10^3/uL (140-400) Neutrophils (%) (Auto) 84 % (31-73) Lymphocytes (%) (Auto) 10 % (24-48) Monocytes (%) (Auto) 4 % (0-9) Eosinophils (%) (Auto) 2 % (0-3) Basophils (%) (Auto) 1 % (0-3) Neutrophils # (Auto) 13.9 x10^3/uL (1.8-7.7) Lymphocytes # (Auto) 1.6 x10^3/uL (1.0-4.8) Monocytes # (Auto) 0.7 x10^3/uL (0.0-1.1) Eosinophils # (Auto) 0.3 x10^3/uL (0.0-0.7) Basophils # (Auto) 0.1 x10^3/uL (0.0-0.2) Sodium Level 134 mmol/L (136-145) Potassium Level 4.6 mmol/L (3.5-5.1) Chloride Level 102 mmol/L (98-107) Carbon Dioxide Level 30 mmol/L (21-32) Anion Gap 2 (6-14) Blood Urea Nitrogen 11 mg/dL (7-20) Creatinine 0.6 mg/dL (0.6-1.0) Estimated GFR (Cockcroft-Gault) 106.3 BUN/Creatinine Ratio 18 (6-20) Glucose Level 115 mg/dL (70-99) Calcium Level 11.4 mg/dL (8.5-10.1) Total Bilirubin 0.5 mg/dL (0.2-1.0) Aspartate Amino Transf (AST/SGOT) 15 U/L (15-37) Alanine Aminotransferase (ALT/SGPT) 14 U/L (14-59) Alkaline Phosphatase 119 U/L (46-116) Creatine Kinase < 7 U/L (26-192) Total Protein 5.5 g/dL (6.4-8.2) Albumin 1.2 g/dL (3.4-5.0) Albumin/Globulin Ratio 0.3 (1.0-1.7) Glucose (Fingerstick) 113 mg/dL (70-99) Laboratory Tests Test 11/14/19 12:46 11/14/19 17:29 11/14/19 23:53 11/15/19 05:45 Glucose (Fingerstick) 141 mg/dL (70-99) 135 mg/dL (70-99) 106 mg/dL (70-99) White Blood Count 16.6 x10^3/uL (4.0-11.0) Red Blood Count 2.90 x10^6/uL (3.50-5.40) Hemoglobin 8.2 g/dL (12.0-15.5) Hematocrit 24.4 % (36.0-47.0) Mean Corpuscular Volume 84 fL (79-100) Mean Corpuscular Hemoglobin 28 pg (25-35) Mean Corpuscular Hemoglobin Concent 34 g/dL (31-37) Red Cell Distribution Width 15.8 % (11.5-14.5) Platelet Count 576 x10^3/uL (140-400) Neutrophils (%) (Auto) 84 % (31-73) Lymphocytes (%) (Auto) 10 % (24-48) Monocytes (%) (Auto) 4 % (0-9) Eosinophils (%) (Auto) 2 % (0-3) Basophils (%) (Auto) 1 % (0-3) Neutrophils # (Auto) 13.9 x10^3/uL (1.8-7.7) Lymphocytes # (Auto) 1.6 x10^3/uL (1.0-4.8) Monocytes # (Auto) 0.7 x10^3/uL (0.0-1.1) Eosinophils # (Auto) 0.3 x10^3/uL (0.0-0.7) Basophils # (Auto) 0.1 x10^3/uL (0.0-0.2) Sodium Level 134 mmol/L (136-145) Potassium Level 4.6 mmol/L (3.5-5.1) Chloride Level 102 mmol/L (98-107) Carbon Dioxide Level 30 mmol/L (21-32) Anion Gap 2 (6-14) Blood Urea Nitrogen 11 mg/dL (7-20) Creatinine 0.6 mg/dL (0.6-1.0) Estimated GFR (Cockcroft-Gault) 106.3 BUN/Creatinine Ratio 18 (6-20) Glucose Level 115 mg/dL (70-99) Calcium Level 11.4 mg/dL (8.5-10.1) Total Bilirubin 0.5 mg/dL (0.2-1.0) Aspartate Amino Transf (AST/SGOT) 15 U/L (15-37) Alanine Aminotransferase (ALT/SGPT) 14 U/L (14-59) Alkaline Phosphatase 119 U/L (46-116) Creatine Kinase < 7 U/L (26-192) Total Protein 5.5 g/dL (6.4-8.2) Albumin 1.2 g/dL (3.4-5.0) Albumin/Globulin Ratio 0.3 (1.0-1.7) Test 11/15/19 06:23 Glucose (Fingerstick) 113 mg/dL (70-99) Microbiology 11/13/19 Gram Stain - Final, Resulted 11/13/19 Aerobic Culture - Preliminary, Resulted 11/13/19 Blood Culture - Preliminary, Resulted NO GROWTH AFTER 2 DAYS 11/08/19 Gram Stain - Final, Complete 11/08/19 Aerobic and Anaerobic Culture - Final, Complete 11/06/19 Gram Stain Evaluation - Final, Complete 11/06/19 Respiratory Culture - Final, Complete 11/06/19 Antimicrobic Susceptibility - Final, Complete 10/18/19 Gram Stain - Final, Complete 10/18/19 Aerobic and Anaerobic Culture - Final, Complete 10/18/19 Antimicrobic Susceptibility - Final, Complete 09/25/19 Urine Culture - Final, Complete Vitals/I & O Vital Sign - Last 24 Hours 11/14/19 11/14/19 11/14/19 11/14/19 12:09 12:09 15:00 16:00 Pulse 132 Resp 41 B/P (MAP) 146/87 (106) Pulse Ox 95 95 97 96 O2 Delivery Nasal Cannula Nasal Cannula Nasal Cannula Nasal Cannula O2 Flow Rate 2.0 2.0 2.0 2.0 11/14/19 11/14/19 11/14/19 11/14/19 18:00 18:16 19:00 19:43 Temp 98.7 98.7 Pulse 120 119 Resp 30 25 B/P (MAP) 117/76 (90) 130/73 (92) Pulse Ox 97 96 98 96 O2 Delivery Nasal Cannula Nasal Cannula Nasal Cannula Nasal Cannula O2 Flow Rate 2.0 2.0 2.0 2.0 11/14/19 11/14/19 11/15/19 11/15/19 20:00 23:00 00:11 03:00 Temp 99.2 99.1 99.2 99.1 Pulse 120 122 Resp 24 34 B/P (MAP) 115/81 (92) 121/72 (88) Pulse Ox 97 98 95 O2 Delivery Nasal Cannula Nasal Cannula Nasal Cannula Nasal Cannula O2 Flow Rate 2.0 2.0 2.0 2.0 11/15/19 11/15/19 11/15/19 11/15/19 04:36 07:00 08:00 08:15 Temp 99.2 99.2 Pulse 120 Resp 22 B/P (MAP) 111/71 (84) Pulse Ox 96 97 96 O2 Delivery Nasal Cannula Nasal Cannula Nasal Cannula Nasal Cannula O2 Flow Rate 2.0 2.0 2.0 2.0 11/15/19 08:21 Resp 31 Pulse Ox 95 O2 Delivery Nasal Cannula O2 Flow Rate 2.0 Intake and Output 11/14/19 11/14/19 11/15/19 15:00 23:00 07:00 Intake Total 2387 ml Output Total 685 ml 940 ml 960 ml Balance -685 ml -940 ml 1427 ml Problem List Problems Medical Problems: (1) Acute pancreatitis Status: Acute (2) Cholelithiasis Status: Acute Assessment Necrotizing biliary pancreatitis with multiple complications and multiple interventions; remains critically ill. Plan of Care Note Continue support. Justicifation of Admission Dx: Justifications for Admission: Justification of Admission Dx: Yes MARY RIVAS MD Nov 15, 2019 12:04
--- NOTE | 2019-11-15 13:15 | NUR ---
SS following up with discharge planning. SS reviewed pt chart and discussed with pt RN. Pt currently on two liters nasal canula. Pt on PPN, IV Daptomycin, IV Avycaz, and IV Micafungin. Per RN, attempting tube feeds today. Pt has KAYLIN drains x2 and Mook drain x1. Pt wearing speaking valve. Pt participating with PT/OT and two person assist. Med Assist attempting to work with pt's family to complete social security disability application. Pt is currently self pay. SS will continue to follow for discharge planning.
[2019-11-15 16:00] VITALS: BP 137/85
--- NOTE | 2019-11-15 16:20 | NUR ---
Paged Dr. Servin because pt's left KAYLIN bulb will not keep suction. Dr. Servin paged back and said to put a ostomy bag over top of the site and maintain it best we can.
--- NOTE | 2019-11-15 16:30 | NUR ---
Pt placed back into bed @ 1600-- Xray notified to do KUB-- informed this RN that it will be a couple of hours due to them having other tests to complete first.
--- NOTE | 2019-11-15 17:00 | NUR ---
Pt's left KAYLIN drain was removed and an ostomy bag was placed over the site. Site was cleaned and prepped with skin prep. Will continue to monitor.
--- NOTE | 2019-11-15 18:21 | RAD ---
KUB History: Reason: check GJ tube w/ contrast for placement for feeding 20 cc Omnipaque 300 was / Spl. Instructions: / History: Technique: Supine view the abdomen after injection of gastrojejunostomy tube with contrast. Comparison: October 18, [address] November 08, 2019 Findings: Gastrojejunostomy tube looped on itself within the duodenum with tip in the proximal jejunum. After injection of gastrojejunostomy tube with contrast the contrast opacifies left mid jejunal bowel loop. No evidence of contrast extravasation. Right upper and mid drains noted. Impression: 1. Gastrojejunostomy tube looped within the duodenum with tip in the proximal jejunum. No evidence of contrast extravasation to suggest leak. Electronically signed by: Sukhdev Sadler DO (11/15/2019 6:18 PM) NICOLAS
--- NOTE | 2019-11-15 18:28 | NUR ---
Pt put out a total of 550cc of urine this shift-- Dr. Umanzor ordered a 500cc bolus x1.
[2019-11-15] MEDS ORDERED: IV NORMAL SALINE 500ML BAG 500 ML IV ONE (18:30)
[2019-11-15 19:00] VITALS: BP 142/81
[2019-11-15] MEDS: IV NORMAL SALINE 1000ML BAG 1,000 ML IV SCH (20:30)
[2019-11-15 23:00] VITALS: BP 121/72
[2019-11-16] VITALS (7 sets, daily range): BP systolic 119–167; BP diastolic 68–90
[2019-11-16] MEDS: AMINO AC 3%/ELECTROLYTE/GLYCER 1,000 ML IV SCH ×2 (00:45→09:36)
[2019-11-16] MEDS: IPRATRPIUM/ALBUTEROL 0.5/2.5MG 3 ML NEBU. NEB SCH ×7 (02:55→23:31)
[2019-11-16] MEDS: ONDANSETRON PF 4 MG/2 ML VIAL. IV PRN ×3 (03:10→22:53)
[2019-11-16 05:30] LABS: BASO % 0 % (0-3); EOS # 0.2 x10^3/uL (0.0-0.7); EOS % 2 % (0-3); HEMATOCRIT 23.5 % (36.0-47.0); HEMOGLOBIN 7.5 g/dL (12.0-15.5); LYMPH # 1.1 x10^3/uL (1.0-4.8); LYMPH % 9 % (24-48); MEAN CORPUSCULAR HEMOGLOBIN 27 pg (25-35); MEAN CORPUSCULAR HGB CONC 32 g/dL (31-37); MEAN CORPUSCULAR VOLUME 84 fL (79-100); MONO # 0.8 x10^3/uL (0.0-1.1); MONO % 6 % (0-9); NEUT # 10.3 x10^3/uL (1.8-7.7); NEUT % 83 % (31-73); PLATELET COUNT 626 x10^3/uL (140-400); RED BLOOD COUNT 2.78 x10^6/uL (3.50-5.40); WHITE BLOOD COUNT 12.4 x10^3/uL (4.0-11.0)
[2019-11-16] MEDS: CEFTAZIDIME/AVIBACTAM 2.5 GM in IV NORMAL SALINE 250ML 250 ML IV SCH ×3 (05:36→22:54)
[2019-11-16] MEDS: INSULIN LISPRO 300 UNITS/3 ML VIAL. SQ SCH ×4 (05:40→18:00)
[2019-11-16 05:43] LABS: CALCIUM 11.1 mg/dL (8.5-10.1); CREATININE 0.6 mg/dL (0.6-1.0); GFR 106.3; POTASSIUM 3.9 mmol/L (3.5-5.1)
--- NOTE | 2019-11-16 06:34 | PDOC ---
Infectious Disease Note Subjective Subjective States ok. No N/SOAF/S/C. pain ok On 2 L O2 by nasal cannula ROS ROS /w neg Vital Sign Vital Signs Vital Signs Date Time Temp Pulse Resp B/P (MAP) Pulse Ox O2 Delivery O2 Flow Rate FiO2 11/16/19 03:00 99.0 126 32 119/76 (90) 99 Nasal Cannula 2.0 99.0 Physical Exam PHYSICAL EXAM GENERAL: pt in bed, appears weak -comfortable -alert HEENT: Pupils equal, oral cavity dry. OC/Op - Dry NECK: Tracheostomy - no JVD LUNGS: Diminished aeration bases, CT on left HEART: S1, S2, ABDOMEN: Distended mild- bowel sounds hypoactive, soft, goyal x 2, KAYLIN drains, G-J tube : Lind in place EXTREMITIES: Trace generalized edema, no cyanosis. RADHA hose bilaterally, SKIN: warm touch. No signs of rash. LUE- Previous PICC site without signs of complications. PIV s clean NEURO: - Alert and responsive Labs Lab Laboratory Tests Test 11/15/19 13:04 11/15/19 17:42 11/15/19 23:41 11/16/19 05:00 Glucose (Fingerstick) 131 mg/dL (70-99) 120 mg/dL (70-99) 122 mg/dL (70-99) White Blood Count 12.4 x10^3/uL (4.0-11.0) Red Blood Count 2.78 x10^6/uL (3.50-5.40) Hemoglobin 7.5 g/dL (12.0-15.5) Hematocrit 23.5 % (36.0-47.0) Mean Corpuscular Volume 84 fL (79-100) Mean Corpuscular Hemoglobin 27 pg (25-35) Mean Corpuscular Hemoglobin Concent 32 g/dL (31-37) Red Cell Distribution Width 16.0 % (11.5-14.5) Platelet Count 626 x10^3/uL (140-400) Neutrophils (%) (Auto) 83 % (31-73) Lymphocytes (%) (Auto) 9 % (24-48) Monocytes (%) (Auto) 6 % (0-9) Eosinophils (%) (Auto) 2 % (0-3) Basophils (%) (Auto) 0 % (0-3) Neutrophils # (Auto) 10.3 x10^3/uL (1.8-7.7) Lymphocytes # (Auto) 1.1 x10^3/uL (1.0-4.8) Monocytes # (Auto) 0.8 x10^3/uL (0.0-1.1) Eosinophils # (Auto) 0.2 x10^3/uL (0.0-0.7) Basophils # (Auto) 0.0 x10^3/uL (0.0-0.2) Sodium Level 134 mmol/L (136-145) Potassium Level 3.9 mmol/L (3.5-5.1) Chloride Level 101 mmol/L (98-107) Carbon Dioxide Level 26 mmol/L (21-32) Anion Gap 7 (6-14) Blood Urea Nitrogen 10 mg/dL (7-20) Creatinine 0.6 mg/dL (0.6-1.0) Estimated GFR (Cockcroft-Gault) 106.3 Glucose Level 131 mg/dL (70-99) Calcium Level 11.1 mg/dL (8.5-10.1) Test 11/16/19 05:40 Glucose (Fingerstick) 126 mg/dL (70-99) Micro 6/ GRAM STAIN Final Final GRAM NEGATIVE RODS:MODERATE SQUAMOUS EPI CELL:NOT APPLICABLE PMN (WBCs):RARE YEAST:MODERATE Unless otherwise specified, Testing Performed by: [address] [address] For Inquires, the Physician may contact the Microbiology department at [phone] ANAEROBIC-AEROBIC CULTURE Preliminary Preliminary MANY GRAM NEGATIVE RODS on 09/27/19 at 1159 FINAL ID= [[email or web address] [email or web address]] PSEUDOMONAS AERUGINOSA ANTIMICROBIAL SUSCEPTIBILITY Preliminary Comment NEG ALEXANDRA 56 PSEUDOMONAS AERUGINOSA ANTIBIOTIC RESULT INTERPRETATION AMIKACIN <=16 S AZTREONAM >16 R CEFTAZIDIME >16 R CIPROFLOXACIN <=0.25 S CEFEPIME 16 I CEFTAZIDIME/AVIBACTAM <=4 S GENTAMICIN <=2 S CONTINUED ON NEXT PAGE RUN DATE: 09/29/19 [facility] LAB *LIVE* PAGE 2 RUN TIME: 1016 Specimen Inquiry SPEC: [id number] PATIENT: BHAVESH CUELLARMEG [place] [id number] (Continued) Procedure Result --------- --- ANTIMICROBIAL SUSCEPTIBILITY Preliminary (continued) LEVOFLOXACIN <=0.5 S MEROPENEM <=1 S PIPERACILLIN/TAZOBACTAM 64 S TOBRAMYCIN <=2 S Unless otherwise specified, Testing Performed by: [facility] [address] [place] [address] For Inquires, the Physician may contact the Microbiology department at [phone] CT Scan 09/23 IMPRESSION: 1. Removal of the percutaneous pigtail drainage catheters since the prior exam. Sequela of pancreatitis with extensive pseudocysts again demonstrated, the right-sided collections are slightly larger since the prior exam, the left-sided collections are stable. See above. 2. Moderate to large left pleural effusion with atelectasis and collapse of most of the left lower lobe, stable. Small right pleural effusion is stable. 3. Gallstone. Objective Assessment Patient with prolonged hospitalization more than 4 months Multiple medical problems Multiple surgical procedures S/P Exp. 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 p arapsilosis & PSAE (I-merrem/ceftazidime/AZT/cefepime)) Leucocytosis - better ? reactive as clinically looks well Fever - 11/11 c-diff neg Anemia Acute gallstone pancreatitis with persistent necrosis - 07/27. CT A/P Increased ascites. 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 status post KAYLIN drain placement; C. parapsilosis. s/p drain 08/23 + yeast & high amylase; s/p additional drain on 08/25. Drains removed. -08/23. fluid devyn parapsilosis fluid, amylase high - 09/23 showed multiple pseudocysts, slight larger on the right. s/p drains x 3, 09/24. + PSAE (MDRO-R Cefepime, Zosyn ALEXANDRA < 64) and yeast, -09/24 s/p drain replacement x 3; fluid cult PSAE (MDRO), yeast; treated -10/29 CT A/P shows smaller fluid collections. -722 CT abdomen and pelvis drains in place Ascites s/p paracentesis 08/02 & 08/23. C. parapsilosis Cholelithiasis with thickening of the gallbladder wall. JUANA, Hyperkalemia, Metabolic acidosis off dialysis Acute hypoxic resp failure. trach/vent. sputum 09/30 + PSAE (I merrem) ; sputum culture November 05+ for PSAE R Merrem, sensitive to cefepime Pleural effusion status post CTS left side Abdominal fluid culture MDRO Pseudomonas, yeast Sputum culture positive 11/05 for MDRO Pseudomonas Chest tube fluid positive for 11/07 Devyn Parapsilosis Plan Plan of Care Continue Avycaz 11/09 /micafungin 10/17 Restart daptomycin 11/12(CK <7 11/14) Ok to replace PICC from ID standpoint. PICC d/c'd 11/12 CBC/BMP in am UA and urine culture Blood culture/Cath tip neg - pending C. 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
[2019-11-16] MEDS: ACETYLCYSTEINE 20% for RESP TX 600 MG/3 ML. NEB SCH ×2 (08:00→19:56)
[2019-11-16] MEDS: PANTOPRAZOLE IV PUSH 40 MG VIAL. IVP SCH (08:34)
[2019-11-16] MEDS: MICAFUNGIN 100 MG in IV DEXTROSE 5% 100ML 100 ML IV SCH (08:34)
[2019-11-16] MEDS: ENOXAPARIN 40 MG/0.4 ML SYRINGE. SQ SCH (08:35)
[2019-11-16] MEDS: DAPTOmycin (GENERIC) IVPB 500 MG in IV NORMAL SALINE 50ML 50 ML IV SCH (09:36)
[2019-11-16] MEDS: fentaNYL PF VIAL 100 MCG/2 ML VIAL IV PRN ×2 (11:36→22:44)
--- NOTE | 2019-11-16 11:56 | PDOC ---
G I PROGRESS NOTE Subjective In bed. Doing therapy. Objective Discussed with staff. Issues with left KAYLIN, removed. Physical Exam Stomal appliance over left KAYLIN site. Suarez drains, right KAYLIN remain. Review of Relevant I have reviewed the following items kolby (where applicable) has been applied. Labs Laboratory Tests Test 11/14/19 12:46 11/14/19 17:29 11/14/19 23:53 11/15/19 05:45 Glucose (Fingerstick) 141 mg/dL (70-99) 135 mg/dL (70-99) 106 mg/dL (70-99) White Blood Count 16.6 x10^3/uL (4.0-11.0) Red Blood Count 2.90 x10^6/uL (3.50-5.40) Hemoglobin 8.2 g/dL (12.0-15.5) Hematocrit 24.4 % (36.0-47.0) Mean Corpuscular Volume 84 fL (79-100) Mean Corpuscular Hemoglobin 28 pg (25-35) Mean Corpuscular Hemoglobin Concent 34 g/dL (31-37) Red Cell Distribution Width 15.8 % (11.5-14.5) Platelet Count 576 x10^3/uL (140-400) Neutrophils (%) (Auto) 84 % (31-73) Lymphocytes (%) (Auto) 10 % (24-48) Monocytes (%) (Auto) 4 % (0-9) Eosinophils (%) (Auto) 2 % (0-3) Basophils (%) (Auto) 1 % (0-3) Neutrophils # (Auto) 13.9 x10^3/uL (1.8-7.7) Lymphocytes # (Auto) 1.6 x10^3/uL (1.0-4.8) Monocytes # (Auto) 0.7 x10^3/uL (0.0-1.1) Eosinophils # (Auto) 0.3 x10^3/uL (0.0-0.7) Basophils # (Auto) 0.1 x10^3/uL (0.0-0.2) Sodium Level 134 mmol/L (136-145) Potassium Level 4.6 mmol/L (3.5-5.1) Chloride Level 102 mmol/L (98-107) Carbon Dioxide Level 30 mmol/L (21-32) Anion Gap 2 (6-14) Blood Urea Nitrogen 11 mg/dL (7-20) Creatinine 0.6 mg/dL (0.6-1.0) Estimated GFR (Cockcroft-Gault) 106.3 BUN/Creatinine Ratio 18 (6-20) Glucose Level 115 mg/dL (70-99) Calcium Level 11.4 mg/dL (8.5-10.1) Total Bilirubin 0.5 mg/dL (0.2-1.0) Aspartate Amino Transf (AST/SGOT) 15 U/L (15-37) Alanine Aminotransferase (ALT/SGPT) 14 U/L (14-59) Alkaline Phosphatase 119 U/L (46-116) Creatine Kinase < 7 U/L (26-192) Total Protein 5.5 g/dL (6.4-8.2) Albumin 1.2 g/dL (3.4-5.0) Albumin/Globulin Ratio 0.3 (1.0-1.7) Test 11/15/19 06:23 11/15/19 13:04 11/15/19 17:42 11/15/19 23:41 Glucose (Fingerstick) 113 mg/dL (70-99) 131 mg/dL (70-99) 120 mg/dL (70-99) 122 mg/dL (70-99) Test 11/16/19 05:00 11/16/19 05:40 White Blood Count 12.4 x10^3/uL (4.0-11.0) Red Blood Count 2.78 x10^6/uL (3.50-5.40) Hemoglobin 7.5 g/dL (12.0-15.5) Hematocrit 23.5 % (36.0-47.0) Mean Corpuscular Volume 84 fL (79-100) Mean Corpuscular Hemoglobin 27 pg (25-35) Mean Corpuscular Hemoglobin Concent 32 g/dL (31-37) Red Cell Distribution Width 16.0 % (11.5-14.5) Platelet Count 626 x10^3/uL (140-400) Neutrophils (%) (Auto) 83 % (31-73) Lymphocytes (%) (Auto) 9 % (24-48) Monocytes (%) (Auto) 6 % (0-9) Eosinophils (%) (Auto) 2 % (0-3) Basophils (%) (Auto) 0 % (0-3) Neutrophils # (Auto) 10.3 x10^3/uL (1.8-7.7) Lymphocytes # (Auto) 1.1 x10^3/uL (1.0-4.8) Monocytes # (Auto) 0.8 x10^3/uL (0.0-1.1) Eosinophils # (Auto) 0.2 x10^3/uL (0.0-0.7) Basophils # (Auto) 0.0 x10^3/uL (0.0-0.2) Sodium Level 134 mmol/L (136-145) Potassium Level 3.9 mmol/L (3.5-5.1) Chloride Level 101 mmol/L (98-107) Carbon Dioxide Level 26 mmol/L (21-32) Anion Gap 7 (6-14) Blood Urea Nitrogen 10 mg/dL (7-20) Creatinine 0.6 mg/dL (0.6-1.0) Estimated GFR (Cockcroft-Gault) 106.3 Glucose Level 131 mg/dL (70-99) Calcium Level 11.1 mg/dL (8.5-10.1) Glucose (Fingerstick) 126 mg/dL (70-99) Laboratory Tests Test 11/15/19 13:04 11/15/19 17:42 11/15/19 23:41 11/16/19 05:00 Glucose (Fingerstick) 131 mg/dL (70-99) 120 mg/dL (70-99) 122 mg/dL (70-99) White Blood Count 12.4 x10^3/uL (4.0-11.0) Red Blood Count 2.78 x10^6/uL (3.50-5.40) Hemoglobin 7.5 g/dL (12.0-15.5) Hematocrit 23.5 % (36.0-47.0) Mean Corpuscular Volume 84 fL (79-100) Mean Corpuscular Hemoglobin 27 pg (25-35) Mean Corpuscular Hemoglobin Concent 32 g/dL (31-37) Red Cell Distribution Width 16.0 % (11.5-14.5) Platelet Count 626 x10^3/uL (140-400) Neutrophils (%) (Auto) 83 % (31-73) Lymphocytes (%) (Auto) 9 % (24-48) Monocytes (%) (Auto) 6 % (0-9) Eosinophils (%) (Auto) 2 % (0-3) Basophils (%) (Auto) 0 % (0-3) Neutrophils # (Auto) 10.3 x10^3/uL (1.8-7.7) Lymphocytes # (Auto) 1.1 x10^3/uL (1.0-4.8) Monocytes # (Auto) 0.8 x10^3/uL (0.0-1.1) Eosinophils # (Auto) 0.2 x10^3/uL (0.0-0.7) Basophils # (Auto) 0.0 x10^3/uL (0.0-0.2) Sodium Level 134 mmol/L (136-145) Potassium Level 3.9 mmol/L (3.5-5.1) Chloride Level 101 mmol/L (98-107) Carbon Dioxide Level 26 mmol/L (21-32) Anion Gap 7 (6-14) Blood Urea Nitrogen 10 mg/dL (7-20) Creatinine 0.6 mg/dL (0.6-1.0) Estimated GFR (Cockcroft-Gault) 106.3 Glucose Level 131 mg/dL (70-99) Calcium Level 11.1 mg/dL (8.5-10.1) Test 11/16/19 05:40 Glucose (Fingerstick) 126 mg/dL (70-99) Microbiology 11/13/19 Gram Stain - Final, Resulted 11/13/19 Aerobic Culture - Preliminary, Resulted 11/13/19 Blood Culture - Preliminary, Resulted NO GROWTH AFTER 3 DAYS 11/08/19 Gram Stain - Final, Complete 11/08/19 Aerobic and Anaerobic Culture - Final, Complete 11/06/19 Gram Stain Evaluation - Final, Complete 11/06/19 Respiratory Culture - Final, Complete 11/06/19 Antimicrobic Susceptibility - Final, Complete 10/18/19 Gram Stain - Final, Complete 10/18/19 Aerobic and Anaerobic Culture - Final, Complete 10/18/19 Antimicrobic Susceptibility - Final, Complete 09/25/19 Urine Culture - Final, Complete Vitals/I & O Vital Sign - Last 24 Hours 11/15/19 11/15/19 11/15/19 11/15/19 12:00 12:21 13:01 15:15 Temp 98.5 98.5 Pulse 133 Resp 31 B/P (MAP) 127/73 (91) Pulse Ox 96 97 96 96 O2 Delivery Nasal Cannula Nasal Cannula Nasal Cannula Nasal Cannula O2 Flow Rate 2.0 2.0 2.0 2.0 11/15/19 11/15/19 11/15/19 11/15/19 16:00 19:00 19:48 20:00 Temp 98.2 99.0 98.2 99.0 Pulse 126 119 Resp 31 33 B/P (MAP) 137/85 (102) 142/81 (101) Pulse Ox 97 92 94 O2 Delivery Nasal Cannula Nasal Cannula Nasal Cannula Nasal Cannula O2 Flow Rate 2.0 2.0 2.0 2.0 11/15/19 11/15/19 11/16/19 11/16/19 23:00 23:35 03:00 03:00 Temp 98.7 99.0 98.7 99.0 Pulse 121 126 Resp 27 32 B/P (MAP) 121/72 (88) 119/76 (90) Pulse Ox 100 94 95 99 O2 Delivery Nasal Cannula Nasal Cannula Nasal Cannula Nasal Cannula O2 Flow Rate 2.0 2.0 2.0 2.0 11/16/19 11/16/19 11/16/19 11/16/19 07:15 08:00 08:27 11:07 Temp 99.5 99.5 99.5 99.5 Pulse 139 128 Resp 40 30 B/P (MAP) 136/79 (98) 136/79 (98) Pulse Ox 95 96 94 O2 Delivery Nasal Cannula Nasal Cannula Nasal Cannula Nasal Cannula O2 Flow Rate 2.0 2.0 2.0 2.0 11/16/19 11:36 Pulse Ox 94 O2 Delivery Nasal Cannula O2 Flow Rate 2.0 Intake and Output 11/15/19 11/15/19 11/16/19 15:00 23:00 07:00 Intake Total 150 ml 1001 ml 1928 ml Output Total 665 ml 765 ml 900 ml Balance -515 ml 236 ml 1028 ml Problem List Problems Medical Problems: (1) Acute pancreatitis Status: Acute (2) Cholelithiasis Status: Acute Assessment Biliary pancreatitis, necrotizing with multiple complications/interventions. Agonizingly slow improvement. Plan of Care Note Continue support. Justicifation of Admission Dx: Justifications for Admission: Justification of Admission Dx: Yes MARY RIVAS MD Nov 16, 2019 11:56
--- NOTE | 2019-11-16 12:33 | PDOC ---
SURGICAL PROGRESS NOTE Subjective Pt working with PT KAYLIN was lost last night appears to be gradually improving cont supportive care. Vital Signs Vital Signs Date Time Temp Pulse Resp B/P (MAP) Pulse Ox O2 Delivery O2 Flow Rate FiO2 11/16/19 11:36 94 Nasal Cannula 2.0 11/16/19 11:07 99.5 128 30 136/79 (98) 99.5 I&O Intake and Output 11/16/19 07:00 Intake Total 3079 ml Output Total 2330 ml Balance 749 ml IV Total 2395 ml Tube Feeding 483 ml Other 201 ml Output Urine Total 1350 ml Drainage Total 980 ml # Bowel Movements 3 Labs Laboratory Tests Test 11/14/19 12:46 11/14/19 17:29 11/14/19 23:53 11/15/19 05:45 Glucose (Fingerstick) 141 mg/dL (70-99) 135 mg/dL (70-99) 106 mg/dL (70-99) White Blood Count 16.6 x10^3/uL (4.0-11.0) Red Blood Count 2.90 x10^6/uL (3.50-5.40) Hemoglobin 8.2 g/dL (12.0-15.5) Hematocrit 24.4 % (36.0-47.0) Mean Corpuscular Volume 84 fL (79-100) Mean Corpuscular Hemoglobin 28 pg (25-35) Mean Corpuscular Hemoglobin Concent 34 g/dL (31-37) Red Cell Distribution Width 15.8 % (11.5-14.5) Platelet Count 576 x10^3/uL (140-400) Neutrophils (%) (Auto) 84 % (31-73) Lymphocytes (%) (Auto) 10 % (24-48) Monocytes (%) (Auto) 4 % (0-9) Eosinophils (%) (Auto) 2 % (0-3) Basophils (%) (Auto) 1 % (0-3) Neutrophils # (Auto) 13.9 x10^3/uL (1.8-7.7) Lymphocytes # (Auto) 1.6 x10^3/uL (1.0-4.8) Monocytes # (Auto) 0.7 x10^3/uL (0.0-1.1) Eosinophils # (Auto) 0.3 x10^3/uL (0.0-0.7) Basophils # (Auto) 0.1 x10^3/uL (0.0-0.2) Sodium Level 134 mmol/L (136-145) Potassium Level 4.6 mmol/L (3.5-5.1) Chloride Level 102 mmol/L (98-107) Carbon Dioxide Level 30 mmol/L (21-32) Anion Gap 2 (6-14) Blood Urea Nitrogen 11 mg/dL (7-20) Creatinine 0.6 mg/dL (0.6-1.0) Estimated GFR (Cockcroft-Gault) 106.3 BUN/Creatinine Ratio 18 (6-20) Glucose Level 115 mg/dL (70-99) Calcium Level 11.4 mg/dL (8.5-10.1) Total Bilirubin 0.5 mg/dL (0.2-1.0) Aspartate Amino Transf (AST/SGOT) 15 U/L (15-37) Alanine Aminotransferase (ALT/SGPT) 14 U/L (14-59) Alkaline Phosphatase 119 U/L (46-116) Creatine Kinase < 7 U/L (26-192) Total Protein 5.5 g/dL (6.4-8.2) Albumin 1.2 g/dL (3.4-5.0) Albumin/Globulin Ratio 0.3 (1.0-1.7) Test 11/15/19 06:23 11/15/19 13:04 11/15/19 17:42 11/15/19 23:41 Glucose (Fingerstick) 113 mg/dL (70-99) 131 mg/dL (70-99) 120 mg/dL (70-99) 122 mg/dL (70-99) Test 11/16/19 05:00 11/16/19 05:40 White Blood Count 12.4 x10^3/uL (4.0-11.0) Red Blood Count 2.78 x10^6/uL (3.50-5.40) Hemoglobin 7.5 g/dL (12.0-15.5) Hematocrit 23.5 % (36.0-47.0) Mean Corpuscular Volume 84 fL (79-100) Mean Corpuscular Hemoglobin 27 pg (25-35) Mean Corpuscular Hemoglobin Concent 32 g/dL (31-37) Red Cell Distribution Width 16.0 % (11.5-14.5) Platelet Count 626 x10^3/uL (140-400) Neutrophils (%) (Auto) 83 % (31-73) Lymphocytes (%) (Auto) 9 % (24-48) Monocytes (%) (Auto) 6 % (0-9) Eosinophils (%) (Auto) 2 % (0-3) Basophils (%) (Auto) 0 % (0-3) Neutrophils # (Auto) 10.3 x10^3/uL (1.8-7.7) Lymphocytes # (Auto) 1.1 x10^3/uL (1.0-4.8) Monocytes # (Auto) 0.8 x10^3/uL (0.0-1.1) Eosinophils # (Auto) 0.2 x10^3/uL (0.0-0.7) Basophils # (Auto) 0.0 x10^3/uL (0.0-0.2) Sodium Level 134 mmol/L (136-145) Potassium Level 3.9 mmol/L (3.5-5.1) Chloride Level 101 mmol/L (98-107) Carbon Dioxide Level 26 mmol/L (21-32) Anion Gap 7 (6-14) Blood Urea Nitrogen 10 mg/dL (7-20) Creatinine 0.6 mg/dL (0.6-1.0) Estimated GFR (Cockcroft-Gault) 106.3 Glucose Level 131 mg/dL (70-99) Calcium Level 11.1 mg/dL (8.5-10.1) Glucose (Fingerstick) 126 mg/dL (70-99) Laboratory Tests Test 11/15/19 13:04 11/15/19 17:42 11/15/19 23:41 11/16/19 05:00 Glucose (Fingerstick) 131 mg/dL (70-99) 120 mg/dL (70-99) 122 mg/dL (70-99) White Blood Count 12.4 x10^3/uL (4.0-11.0) Red Blood Count 2.78 x10^6/uL (3.50-5.40) Hemoglobin 7.5 g/dL (12.0-15.5) Hematocrit 23.5 % (36.0-47.0) Mean Corpuscular Volume 84 fL (79-100) Mean Corpuscular Hemoglobin 27 pg (25-35) Mean Corpuscular Hemoglobin Concent 32 g/dL (31-37) Red Cell Distribution Width 16.0 % (11.5-14.5) Platelet Count 626 x10^3/uL (140-400) Neutrophils (%) (Auto) 83 % (31-73) Lymphocytes (%) (Auto) 9 % (24-48) Monocytes (%) (Auto) 6 % (0-9) Eosinophils (%) (Auto) 2 % (0-3) Basophils (%) (Auto) 0 % (0-3) Neutrophils # (Auto) 10.3 x10^3/uL (1.8-7.7) Lymphocytes # (Auto) 1.1 x10^3/uL (1.0-4.8) Monocytes # (Auto) 0.8 x10^3/uL (0.0-1.1) Eosinophils # (Auto) 0.2 x10^3/uL (0.0-0.7) Basophils # (Auto) 0.0 x10^3/uL (0.0-0.2) Sodium Level 134 mmol/L (136-145) Potassium Level 3.9 mmol/L (3.5-5.1) Chloride Level 101 mmol/L (98-107) Carbon Dioxide Level 26 mmol/L (21-32) Anion Gap 7 (6-14) Blood Urea Nitrogen 10 mg/dL (7-20) Creatinine 0.6 mg/dL (0.6-1.0) Estimated GFR (Cockcroft-Gault) 106.3 Glucose Level 131 mg/dL (70-99) Calcium Level 11.1 mg/dL (8.5-10.1) Test 11/16/19 05:40 Glucose (Fingerstick) 126 mg/dL (70-99) Problem List Problems Medical Problems: (1) Acute pancreatitis Status: Acute (2) Cholelithiasis Status: Acute Justicifation of Admission Dx: Justifications for Admission: Justification of Admission Dx: Yes DAVON SIMMS MD Nov 16, 2019 12:33
[2019-11-16] MEDS: IV NORMAL SALINE 1000ML BAG 1,000 ML IV SCH (14:03)
--- NOTE | 2019-11-16 14:19 | NUR ---
SS following up with discharge planning. SS reviewed pt chart and discussed with pt RN. Med Assist attempting to work with pt's daughters to complete disability application. Pt is currently requiring two liters nasal canula of oxygen. Pt has one KAYLIN drain and one Mook drain. Pt has drainage on left KAYLIN drain site and has ostomy bag on it. Pt has wound vac on midline. Pt wearing speaking valve intermittently and started tube feeds on 11/15/2019. Pt on PPN, IV Daptomycin, IV Micafungin, and IV Avycaz. Pt Max Assist with PT/OT. G tube remains. SS will continue to follow for discharge planning.
--- NOTE | 2019-11-16 15:08 | NUR ---
Wound Care: Incisional vac changed. Periwound draped, contact layer placed over incision line with silver foam at -125 mmHg continuous suction and a good seal maintained. All drain dressings removed, cleaned with chloroprep and new split gauze sponges reapplied and taped, pt tolerated dressing changes well. RLQ has a small area of skin erosion from a previous drain site, wound cleaned, and redressed with Aquacel AG and gauze. WC will continue to follow for vac management. Patient in chair at this time with call light light in reach.
--- NOTE | 2019-11-16 15:09 | PDOC ---
[employer] PROGRESS NOTE Chief Complaint Chief Complaint S/P Exp. 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 parapsilosis & PSAE (I-merrem/ceftazidime/AZT/cefepime)) Leucocytosis -trending upward Fever Acute gallstone pancreatitis with persistent necrosis Postop (Exploratory laparotomy, lysis of adhesions, subtotal cholecystectomy with cholangiogram, gastrojejunostomy tube placement, pancreatic necrosectomy) Acute hypoxic Respiratory failure required mechanical ventilation Tracheostomy bilateral pleural effusions/pulm edema s/p Throacentesis on 10/03/2019 Severe Acute gallstone pancreatitis (not a surgical candidate at this time) with necrosis Acute kidney failure now requiring dialysis Gallstones (Calculus of gallbladder with acute cholecystitis without obstru ction) HTN Intractable pain Intractable nausea Covid 19 negative. Acute on chronic anemia EEG: No seizure activity Fever - intermittent ? Ileus with vomiting Abd distention - U/S and CT reviewed s/p 0.4 L of opaque, debris-containing ascites was removed 08/23 Acute pancreatitis with persistent necrosis Gallstone pancreatitis with necrosis. -CT A/P 09/23 showed multiple pseudocysts, slight larger on the right. s/p drains x 3, 09/24. + PSAE (MDRO-R Cefepime, Zosyn ALEXANDRA < 64) and yeast, -s/p drain 08/14. C. parapsilosis. s/p drain 08/23 + yeast & high amylase; s/p additional drain on 08/25. Drains removed. Ascites s/p paracentesis 08/02 & 08/23. C. parapsilosis JUANA. off HD. A large fluid collection in the pancreatic bed has slightly decreased in size, described below, the pancreas itself is difficult to visualize, which could be due to necrosis or obscuration of pancreatic parenchyma from the surrounding fluid collection.10/02 - 08/14 status post KAYLIN drain placement + C paropsilosis. s/p additional drains 08/25 Anemia - S/p PRBCs. Cholelithiasis with thickening of the gallbladder wall. Leucocytosis improving JUANA, hyperkalemia, Metabolic acidosis off dialysis hypocalcemia Prediabetes HTN s/p trach Hyperglycemia severe protein-caloric malnutrition Moderate to large left pleural effusion with atelectasis and collapse of most of the left lower lobe, stable Extensive retroperitoneal fluid collections persist. Percutaneous drains remain within the collections in both paracolic gutters. These communicate with additi onal pelvic and peripancreatic collections. PLAN Continue Avycaz /micafungin, DC dapto per ID recommendations Negative C diff BC from 11/01 neg to date 11/12 PICC line removed will start PPN for 24 hours then replace PICC line other side Follow surgery input regarding diet and drains, pending GJ tube placement with IR before restarting tube feeds. DVT GI prophylaxis f/u BC /resp cultures continue DVT/GI PPX Discussed with RN 35 MIN CC TIME History of Present Illness History of Present Illness 11/15/2019 Patient seen and examined bedside. Patient appears to be in no obvious pain. All drains have been adequately draining. Patient continues to be on TPN. Chart labs and imaging was reviewed. Negative fluid balance of 270 cc 11/14/2019 Patient seen and examined in the ICU. Patient still requires extensive care. 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 Chart, labs, imaging was reviewed. UOP with + 500cc balance. 11/11 Patient seen in and examined in the ICU She is still extremely critically ill Appears weak, frail, and pale Better color today with improved eye contact and expression Discussed with RN Chart reviewed 11/08/2019 Patient seen and examined in the ICU She is still extremely critically ill Appears extremely weak frail and pale Discussed with RN Chart reviewed Vitals/I&O Vitals/I&O: Vital Signs Date Time Temp Pulse Resp B/P (MAP) Pulse Ox O2 Delivery O2 Flow Rate FiO2 11/16/19 13:00 96 Nasal Cannula 2.0 11/16/19 11:07 99.5 128 30 136/79 (98) 99.5 I & O 11/15/19 11/15/19 11/16/19 15:00 23:00 07:00 Intake Total 150 ml 1001 ml 1928 ml Output Total 665 ml 765 ml 900 ml Balance -515 ml 236 ml 1028 ml Physical Exam Physical Exam: GENERAL: pt in bed, appears weak -comfortable -alert HEENT: Pupils equal, oral cavity dry. OC/Op - Dry NECK: Tracheostomy - no JVD LUNGS: Diminished aeration bases, CT on left HEART: S1, S2, ABDOMEN: Distended mild- bowel sounds hypoactive, soft, goyal x 2, KAYLIN drains, G-J tube : Lind in place EXTREMITIES: Trace generalized edema, no cyanosis. RADHA hose bilaterally, SKIN: warm touch. No signs of rash. LUE- Previous PICC site without signs of complications. PIV s clean NEURO: - Alert and responsive General: Cooperative, No acute distress Heart: Other (distant heart sounds, tachycardic) Lungs: Crackles Abdomen: Soft (drains in place, wound vac in place) Extremities: Other (Diffuse edema) Skin: No rashes, No significant lesion Labs Labs: Laboratory Tests Test 11/15/19 17:42 11/15/19 23:41 11/16/19 05:00 11/16/19 05:40 Glucose (Fingerstick) 120 mg/dL (70-99) 122 mg/dL (70-99) 126 mg/dL (70-99) White Blood Count 12.4 x10^3/uL (4.0-11.0) Red Blood Count 2.78 x10^6/uL (3.50-5.40) Hemoglobin 7.5 g/dL (12.0-15.5) Hematocrit 23.5 % (36.0-47.0) Mean Corpuscular Volume 84 fL (79-100) Mean Corpuscular Hemoglobin 27 pg (25-35) Mean Corpuscular Hemoglobin Concent 32 g/dL (31-37) Red Cell Distribution Width 16.0 % (11.5-14.5) Platelet Count 626 x10^3/uL (140-400) Neutrophils (%) (Auto) 83 % (31-73) Lymphocytes (%) (Auto) 9 % (24-48) Monocytes (%) (Auto) 6 % (0-9) Eosinophils (%) (Auto) 2 % (0-3) Basophils (%) (Auto) 0 % (0-3) Neutrophils # (Auto) 10.3 x10^3/uL (1.8-7.7) Lymphocytes # (Auto) 1.1 x10^3/uL (1.0-4.8) Monocytes # (Auto) 0.8 x10^3/uL (0.0-1.1) Eosinophils # (Auto) 0.2 x10^3/uL (0.0-0.7) Basophils # (Auto) 0.0 x10^3/uL (0.0-0.2) Sodium Level 134 mmol/L (136-145) Potassium Level 3.9 mmol/L (3.5-5.1) Chloride Level 101 mmol/L (98-107) Carbon Dioxide Level 26 mmol/L (21-32) Anion Gap 7 (6-14) Blood Urea Nitrogen 10 mg/dL (7-20) Creatinine 0.6 mg/dL (0.6-1.0) Estimated GFR (Cockcroft-Gault) 106.3 Glucose Level 131 mg/dL (70-99) Calcium Level 11.1 mg/dL (8.5-10.1) Test 11/16/19 12:35 Glucose (Fingerstick) 152 mg/dL (70-99) Assessment and Plan Assessmemt and Plan Problems Medical Problems: (1) Acute pancreatitis Status: Acute (2) Cholelithiasis Status: Acute Comment Review of Relevant I have reviewed the following items kolby (where applicable) has been applied. Medications: Current Medications Medications (Trade) Dose Ordered Sig/Yvon Route PRN Reason Start Time Stop Time Status Last Admin Dose Admin Sodium Chloride 500 ml @ 500 mls/hr 1X ONCE IV 11/15/19 18:30 11/15/19 19:29 DC 11/15/19 18:30 Justicifation of Admission Dx: Justifications for Admission: Justification of Admission Dx: Yes ADRIANNE SAM MD Nov 16, 2019 15:09
--- NOTE | 2019-11-16 21:45 | NUR ---
Allergies and reactions Codeine INR 1.1 (from 10/12/19) BUN 10 Cr 0.6 Platelets 626 Blood culture done 11/13/19 blood culture results Negative Order Verified Yes Consent signed Yes Previous PICC placement Yes Past Medical/Surgical history and current diagnosis reviewed Yes Patient Medical /Surgical History Related to PICC line placement Diabetes History of acute/chronic renal failure Infectious Disease consult Past central line or venous access device placement Renal consult Special considerations for PICC line placement Anticoagulation therapy PICC placement indication halfway antibiotic usage, Multiple/ Frequent blood draws, Poor peripheral intravenous access REY Jaimes PICC Nurse Addendum: 11/17/19 at 0135 by DARIA DEL ROSARIO RN Amended: Links added.
--- NOTE | 2019-11-16 22:30 | NUR ---
Procedure: Following complete explanation of the PICC procedure including the indications, risks, and potential complications, informed consent was obtained. The possibility for infection was discussed along with signs, symptoms, and prevention. All the questions were answered. Written and verbal patient education was provided. Hand hygiene performed. Standardized central line checklist was utilized. The patient was placed in the supine position, the arm was prepped with chlorhexidine and patient draped with maximum sterile barrier. 4 mL 1% lidocaine was infiltrated into the skin to provide local anesthesia. A thorough assessment of Right upper extremity completed. Using real-time ultrasound guidance and standardized micro puncture set, the Basilic vein was punctured and a peel away sheath was placed using the modified Seldinger technique. Complications: Attempted placement three times, able to access vein without difficulty each time but unable to advance guide wire the first two attempts then with the third was able to insert guide wire without difficulties but unable to advance catheter. 20guage angiocath inserted RAC for IV access tonight, patient to have IR place PICC in am. Addendum: 11/17/19 at 0214 by DARIA DEL ROSARIO RN Amended: Links added.
[2019-11-17 03:16] VITALS: BP 150/83
[2019-11-17] MEDS: IPRATRPIUM/ALBUTEROL 0.5/2.5MG 3 ML NEBU. NEB SCH ×5 (03:24→20:51)
[2019-11-17] MEDS: AMINO AC 3%/ELECTROLYTE/GLYCER 1,000 ML IV SCH ×2 (04:32→16:47)
[2019-11-17 05:03] LABS: BASO % 0 % (0-3); EOS # 0.1 x10^3/uL (0.0-0.7); EOS % 1 % (0-3); HEMATOCRIT 23.6 % (36.0-47.0); HEMOGLOBIN 7.6 g/dL (12.0-15.5); LYMPH # 1.4 x10^3/uL (1.0-4.8); LYMPH % 12 % (24-48); MEAN CORPUSCULAR HEMOGLOBIN 27 pg (25-35); MEAN CORPUSCULAR HGB CONC 32 g/dL (31-37); MEAN CORPUSCULAR VOLUME 85 fL (79-100); MONO # 0.8 x10^3/uL (0.0-1.1); MONO % 7 % (0-9); NEUT # 9.2 x10^3/uL (1.8-7.7); NEUT % 80 % (31-73); PLATELET COUNT 671 x10^3/uL (140-400); RED BLOOD COUNT 2.77 x10^6/uL (3.50-5.40); RED CELL DISTRIBUTION WIDTH 16.4 % (11.5-14.5); WHITE BLOOD COUNT 11.5 x10^3/uL (4.0-11.0)
[2019-11-17 05:12] LABS: CALCIUM 11.3 mg/dL (8.5-10.1); CREATININE 0.5 mg/dL (0.6-1.0); GFR 131.1; POTASSIUM 3.7 mmol/L (3.5-5.1)
[2019-11-17] MEDS: INSULIN LISPRO 300 UNITS/3 ML VIAL. SQ SCH ×5 (06:00→23:02)
[2019-11-17] MEDS: CEFTAZIDIME/AVIBACTAM 2.5 GM in IV NORMAL SALINE 250ML 250 ML IV SCH ×3 (06:09→22:59)
--- NOTE | 2019-11-17 06:20 | PDOC ---
Infectious Disease Note Subjective Subjective States ok. No N/SOAF/S/C. pain ok Vital Sign Vital Signs Vital Signs Date Time Temp Pulse Resp B/P (MAP) Pulse Ox O2 Delivery O2 Flow Rate FiO2 11/17/19 03:25 95 Nasal Cannula 2.0 11/17/19 03:16 97.8 116 24 150/83 (105) 97.8 Physical Exam PHYSICAL EXAM GENERAL: pt in bed, appears weak -comfortable -alert HEENT: Pupils equal, oral cavity dry. OC/Op - Dry NECK: Tracheostomy - no JVD LUNGS: Diminished aeration bases, CT on left HEART: S1, S2, ABDOMEN: Distended mild- bowel sounds hypoactive, soft, goyal x 2, KAYLIN drains, G-J tube : Lind in place EXTREMITIES: Trace generalized edema, no cyanosis. SKIN: warm touch. No signs of rash. LUE- Previous PICC site without signs of complications. PIV s clean NEURO: - Alert and responsive PIVs clean Labs Lab Laboratory Tests Test 11/16/19 12:35 11/16/19 18:11 11/16/19 23:54 11/17/19 04:25 Glucose (Fingerstick) 152 mg/dL (70-99) 120 mg/dL (70-99) 109 mg/dL (70-99) White Blood Count 11.5 x10^3/uL (4.0-11.0) Red Blood Count 2.77 x10^6/uL (3.50-5.40) Hemoglobin 7.6 g/dL (12.0-15.5) Hematocrit 23.6 % (36.0-47.0) Mean Corpuscular Volume 85 fL (79-100) Mean Corpuscular Hemoglobin 27 pg (25-35) Mean Corpuscular Hemoglobin Concent 32 g/dL (31-37) Red Cell Distribution Width 16.4 % (11.5-14.5) Platelet Count 671 x10^3/uL (140-400) Neutrophils (%) (Auto) 80 % (31-73) Lymphocytes (%) (Auto) 12 % (24-48) Monocytes (%) (Auto) 7 % (0-9) Eosinophils (%) (Auto) 1 % (0-3) Basophils (%) (Auto) 0 % (0-3) Neutrophils # (Auto) 9.2 x10^3/uL (1.8-7.7) Lymphocytes # (Auto) 1.4 x10^3/uL (1.0-4.8) Monocytes # (Auto) 0.8 x10^3/uL (0.0-1.1) Eosinophils # (Auto) 0.1 x10^3/uL (0.0-0.7) Basophils # (Auto) 0.0 x10^3/uL (0.0-0.2) Sodium Level 134 mmol/L (136-145) Potassium Level 3.7 mmol/L (3.5-5.1) Chloride Level 102 mmol/L (98-107) Carbon Dioxide Level 26 mmol/L (21-32) Anion Gap 6 (6-14) Blood Urea Nitrogen 9 mg/dL (7-20) Creatinine 0.5 mg/dL (0.6-1.0) Estimated GFR (Cockcroft-Gault) 131.1 Glucose Level 118 mg/dL (70-99) Calcium Level 11.3 mg/dL (8.5-10.1) Micro 6/7 GRAM STAIN Final Final GRAM NEGATIVE RODS:MODERATE SQUAMOUS EPI CELL:NOT APPLICABLE PMN (WBCs):RARE YEAST:MODERATE Unless otherwise specified, Testing Performed by: [address] [address] For Inquires, the Physician may contact the Microbiology department at [phone] ANAEROBIC-AEROBIC CULTURE Preliminary Preliminary MANY GRAM NEGATIVE RODS on 09/27/19 at 1151 FINAL ID= [[email or web address]] PSEUDOMONAS AERUGINOSA ANTIMICROBIAL SUSCEPTIBILITY Preliminary Comment NEG ALEXANDRA 56 PSEUDOMONAS AERUGINOSA ANTIBIOTIC RESULT INTERPRETATION AMIKACIN <=16 S AZTREONAM >16 R CEFTAZIDIME >16 R CIPROFLOXACIN <=0.25 S CEFEPIME 16 I CEFTAZIDIME/AVIBACTAM <=4 S GENTAMICIN <=2 S CONTINUED ON NEXT PAGE RUN DATE: 09/29/19 [facility] LAB *LIVE* PAGE 2 RUN TIME: 1016 Specimen Inquiry SPEC: [id number] PATIENT: SCOTT CUELLAR [id number] (Continued) Procedure Result ANTIMICROBIAL SUSCEPTIBILITY Preliminary (continued) LEVOFLOXACIN <=0.5 S MEROPENEM <=1 S PIPERACILLIN/TAZOBACTAM 64 S TOBRAMYCIN <=2 S Unless otherwise specified, Testing Performed by: [address] [address] For Inquires, the Physician may contact the Microbiology department at [phone] CT Scan 09/23 IMPRESSION: 1. Removal of the percutaneous pigtail drainage catheters since the prior exam. Sequela of pancreatitis with extensive pseudocysts again demonstrated, the right-sided collections are slightly larger since the prior exam, the left-sided collections are stable. See above. 2. Moderate to large left pleural effusion with atelectasis and collapse of most of the left lower lobe, stable. Small right pleural effusion is stable. 3. Gallstone. Objective Assessment Patient with prolonged hospitalization more than 4 months Multiple medical problems Multiple surgical procedures S/P Exp. 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 parapsilosis & PSAE (I-merrem/ceftazidime/AZT/cefepime)) Leucocytosis - better ? reactive as clinically looks well Fever - 11/11 c-diff neg Anemia Acute gallstone pancreatitis with persistent necrosis - 07/27. CT A/P Increased ascites. 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 status post KAYLIN drain placement; C. parapsilosis. s/p drain 08/23 + yeast & high amylase; s/p additional drain on 08/25. Drains removed. -08/23. fluid devyn parapsilosis fluid, amylase high - 09/23 showed multiple pseudocysts, slight larger on the right. s/p drains x 3, 09/24. + PSAE (MDRO-R Cefepime, Zosyn ALEXANDRA < 64) and yeast, -09/24 s/p drain replacement x 3; fluid cult PSAE (MDRO), yeast; treated -10/29 CT A/P shows smaller fluid collections. -722 CT abdomen and pelvis drains in place Ascites s/p paracentesis 08/02 & 08/23. C. parapsilosis Cholelithiasis with thickening of the gallbladder wall. JUANA, Hyperkalemia, Metabolic acidosis off dialysis Acute hypoxic resp failure. trach/vent. sputum 09/30 + PSAE (I merrem) ; sputum culture November 05+ for PSAE R Merrem, sensitive to cefepime Pleural effusion status post CTS left side Abdominal fluid culture MDRO Pseudomonas, yeast Sputum culture positive 11/05 for MDRO Pseudomonas Chest tube fluid positive for 11/07 Devyn Parapsilosis Plan Plan of Care Continue Avycaz 11/09 /micafungin 10/17 Restart daptomycin 11/12(CK <7 11/14) wean soon Ok to replace PICC from ID standpoint. PICC d/c'd 11/12 CBC/BMP in am UA and urine culture Blood culture/Cath tip neg - pending C. difficile negative Monitor WBC/temp Wound care /drain management as directed Contact isolation for CRE/MDRO Critically ill [facility] prognosis poor D/w nursing WILLY BARAKAT MD Nov 17, 2019 06:20
[2019-11-17 07:00] VITALS: BP 157/80
[2019-11-17] MEDS: ENOXAPARIN 40 MG/0.4 ML SYRINGE. SQ SCH (08:04)
[2019-11-17] MEDS: PANTOPRAZOLE IV PUSH 40 MG VIAL. IVP SCH (08:04)
[2019-11-17] MEDS: MICAFUNGIN 100 MG in IV DEXTROSE 5% 100ML 100 ML IV SCH (08:05)
[2019-11-17] MEDS: ACETYLCYSTEINE 20% for RESP TX 600 MG/3 ML. NEB SCH ×2 (08:35→20:51)
[2019-11-17] MEDS: fentaNYL PF VIAL 100 MCG/2 ML VIAL IV PRN ×3 (09:08→20:50)
[2019-11-17] MEDS: DAPTOmycin (GENERIC) IVPB 500 MG in IV NORMAL SALINE 50ML 50 ML IV SCH (09:09)
--- NOTE | 2019-11-17 09:30 | PDOC ---
SURGICAL PROGRESS NOTE Subjective complaints of pain under sump drain Vital Signs Vital Signs Date Time Temp Pulse Resp B/P (MAP) Pulse Ox O2 Delivery O2 Flow Rate FiO2 11/17/19 09:08 28 95 Room Air 11/17/19 08:39 2.0 11/17/19 07:00 98.4 110 157/80 (105) 98.4 I&O Intake and Output 11/17/19 07:00 Intake Total 1810 ml Output Total 1885 ml Balance -75 ml Intake Oral 0 ml IV Total 1250 ml Tube Feeding 500 ml Other 60 ml Output Urine Total 825 ml Gastric Drainage Total 745 ml Drainage Total 315 ml # Bowel Movements 2 General: Alert, Cooperative Abdomen: Soft, Other (drains in place) Labs Laboratory Tests Test 11/15/19 13:04 11/15/19 17:42 11/15/19 23:41 11/16/19 05:00 Glucose (Fingerstick) 131 mg/dL (70-99) 120 mg/dL (70-99) 122 mg/dL (70-99) White Blood Count 12.4 x10^3/uL (4.0-11.0) Red Blood Count 2.78 x10^6/uL (3.50-5.40) Hemoglobin 7.5 g/dL (12.0-15.5) Hematocrit 23.5 % (36.0-47.0) Mean Corpuscular Volume 84 fL (79-100) Mean Corpuscular Hemoglobin 27 pg (25-35) Mean Corpuscular Hemoglobin Concent 32 g/dL (31-37) Red Cell Distribution Width 16.0 % (11.5-14.5) Platelet Count 626 x10^3/uL (140-400) Neutrophils (%) (Auto) 83 % (31-73) Lymphocytes (%) (Auto) 9 % (24-48) Monocytes (%) (Auto) 6 % (0-9) Eosinophils (%) (Auto) 2 % (0-3) Basophils (%) (Auto) 0 % (0-3) Neutrophils # (Auto) 10.3 x10^3/uL (1.8-7.7) Lymphocytes # (Auto) 1.1 x10^3/uL (1.0-4.8) Monocytes # (Auto) 0.8 x10^3/uL (0.0-1.1) Eosinophils # (Auto) 0.2 x10^3/uL (0.0-0.7) Basophils # (Auto) 0.0 x10^3/uL (0.0-0.2) Sodium Level 134 mmol/L (136-145) Potassium Level 3.9 mmol/L (3.5-5.1) Chloride Level 101 mmol/L (98-107) Carbon Dioxide Level 26 mmol/L (21-32) Anion Gap 7 (6-14) Blood Urea Nitrogen 10 mg/dL (7-20) Creatinine 0.6 mg/dL (0.6-1.0) Estimated GFR (Cockcroft-Gault) 106.3 Glucose Level 131 mg/dL (70-99) Calcium Level 11.1 mg/dL (8.5-10.1) Test 11/16/19 05:40 11/16/19 12:35 11/16/19 18:11 11/16/19 23:54 Glucose (Fingerstick) 126 mg/dL (70-99) 152 mg/dL (70-99) 120 mg/dL (70-99) 109 mg/dL (70-99) Test 11/17/19 04:25 11/17/19 06:23 White Blood Count 11.5 x10^3/uL (4.0-11.0) Red Blood Count 2.77 x10^6/uL (3.50-5.40) Hemoglobin 7.6 g/dL (12.0-15.5) Hematocrit 23.6 % (36.0-47.0) Mean Corpuscular Volume 85 fL (79-100) Mean Corpuscular Hemoglobin 27 pg (25-35) Mean Corpuscular Hemoglobin Concent 32 g/dL (31-37) Red Cell Distribution Width 16.4 % (11.5-14.5) Platelet Count 671 x10^3/uL (140-400) Neutrophils (%) (Auto) 80 % (31-73) Lymphocytes (%) (Auto) 12 % (24-48) Monocytes (%) (Auto) 7 % (0-9) Eosinophils (%) (Auto) 1 % (0-3) Basophils (%) (Auto) 0 % (0-3) Neutrophils # (Auto) 9.2 x10^3/uL (1.8-7.7) Lymphocytes # (Auto) 1.4 x10^3/uL (1.0-4.8) Monocytes # (Auto) 0.8 x10^3/uL (0.0-1.1) Eosinophils # (Auto) 0.1 x10^3/uL (0.0-0.7) Basophils # (Auto) 0.0 x10^3/uL (0.0-0.2) Sodium Level 134 mmol/L (136-145) Potassium Level 3.7 mmol/L (3.5-5.1) Chloride Level 102 mmol/L (98-107) Carbon Dioxide Level 26 mmol/L (21-32) Anion Gap 6 (6-14) Blood Urea Nitrogen 9 mg/dL (7-20) Creatinine 0.5 mg/dL (0.6-1.0) Estimated GFR (Cockcroft-Gault) 131.1 Glucose Level 118 mg/dL (70-99) Calcium Level 11.3 mg/dL (8.5-10.1) Glucose (Fingerstick) 115 mg/dL (70-99) Laboratory Tests Test 11/16/19 12:35 11/16/19 18:11 11/16/19 23:54 11/17/19 04:25 Glucose (Fingerstick) 152 mg/dL (70-99) 120 mg/dL (70-99) 109 mg/dL (70-99) White Blood Count 11.5 x10^3/uL (4.0-11.0) Red Blood Count 2.77 x10^6/uL (3.50-5.40) Hemoglobin 7.6 g/dL (12.0-15.5) Hematocrit 23.6 % (36.0-47.0) Mean Corpuscular Volume 85 fL (79-100) Mean Corpuscular Hemoglobin 27 pg (25-35) Mean Corpuscular Hemoglobin Concent 32 g/dL (31-37) Red Cell Distribution Width 16.4 % (11.5-14.5) Platelet Count 671 x10^3/uL (140-400) Neutrophils (%) (Auto) 80 % (31-73) Lymphocytes (%) (Auto) 12 % (24-48) Monocytes (%) (Auto) 7 % (0-9) Eosinophils (%) (Auto) 1 % (0-3) Basophils (%) (Auto) 0 % (0-3) Neutrophils # (Auto) 9.2 x10^3/uL (1.8-7.7) Lymphocytes # (Auto) 1.4 x10^3/uL (1.0-4.8) Monocytes # (Auto) 0.8 x10^3/uL (0.0-1.1) Eosinophils # (Auto) 0.1 x10^3/uL (0.0-0.7) Basophils # (Auto) 0.0 x10^3/uL (0.0-0.2) Sodium Level 134 mmol/L (136-145) Potassium Level 3.7 mmol/L (3.5-5.1) Chloride Level 102 mmol/L (98-107) Carbon Dioxide Level 26 mmol/L (21-32) Anion Gap 6 (6-14) Blood Urea Nitrogen 9 mg/dL (7-20) Creatinine 0.5 mg/dL (0.6-1.0) Estimated GFR (Cockcroft-Gault) 131.1 Glucose Level 118 mg/dL (70-99) Calcium Level 11.3 mg/dL (8.5-10.1) Test 11/17/19 06:23 Glucose (Fingerstick) 115 mg/dL (70-99) Problem List Problems Medical Problems: (1) Acute pancreatitis Status: Acute (2) Cholelithiasis Status: Acute Assessment/Plan d/w Dr Servin--need to keep sump drain in place Justicifation of Admission Dx: Justifications for Admission: Justification of Admission Dx: Yes 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
--- NOTE | 2019-11-17 09:40 | PDOC ---
PULMONARY PROGRESS NOTES Subjective Resting comfortable on trach W/ room air no complaints Vitals Vital Signs Date Time Temp Pulse Resp B/P (MAP) Pulse Ox O2 Delivery O2 Flow Rate FiO2 11/17/19 09:08 28 95 Room Air 11/17/19 08:39 2.0 11/17/19 07:00 98.4 110 157/80 (105) 98.4 ROS: No Nausea, No Chest Pain, No Abdominal Pain, No Increase Cough General: Alert HEENT: Other (trach site CDI) Lungs: Crackles Cardiovascular: S1, S2 Abdomen: Soft, Non-tender, Other (multiple KAYLIN drains ) Neuro Exam: Alert Extremities: Other (+1 BLE edema) Skin: Warm Labs Laboratory Tests Test 11/15/19 13:04 11/15/19 17:42 11/15/19 23:41 11/16/19 05:00 Glucose (Fingerstick) 131 mg/dL (70-99) 120 mg/dL (70-99) 122 mg/dL (70-99) White Blood Count 12.4 x10^3/uL (4.0-11.0) Red Blood Count 2.78 x10^6/uL (3.50-5.40) Hemoglobin 7.5 g/dL (12.0-15.5) Hematocrit 23.5 % (36.0-47.0) Mean Corpuscular Volume 84 fL (79-100) Mean Corpuscular Hemoglobin 27 pg (25-35) Mean Corpuscular Hemoglobin Concent 32 g/dL (31-37) Red Cell Distribution Width 16.0 % (11.5-14.5) Platelet Count 626 x10^3/uL (140-400) Neutrophils (%) (Auto) 83 % (31-73) Lymphocytes (%) (Auto) 9 % (24-48) Monocytes (%) (Auto) 6 % (0-9) Eosinophils (%) (Auto) 2 % (0-3) Basophils (%) (Auto) 0 % (0-3) Neutrophils # (Auto) 10.3 x10^3/uL (1.8-7.7) Lymphocytes # (Auto) 1.1 x10^3/uL (1.0-4.8) Monocytes # (Auto) 0.8 x10^3/uL (0.0-1.1) Eosinophils # (Auto) 0.2 x10^3/uL (0.0-0.7) Basophils # (Auto) 0.0 x10^3/uL (0.0-0.2) Sodium Level 134 mmol/L (136-145) Potassium Level 3.9 mmol/L (3.5-5.1) Chloride Level 101 mmol/L (98-107) Carbon Dioxide Level 26 mmol/L (21-32) Anion Gap 7 (6-14) Blood Urea Nitrogen 10 mg/dL (7-20) Creatinine 0.6 mg/dL (0.6-1.0) Estimated GFR (Cockcroft-Gault) 106.3 Glucose Level 131 mg/dL (70-99) Calcium Level 11.1 mg/dL (8.5-10.1) Test 11/16/19 05:40 11/16/19 12:35 11/16/19 18:11 11/16/19 23:54 Glucose (Fingerstick) 126 mg/dL (70-99) 152 mg/dL (70-99) 120 mg/dL (70-99) 109 mg/dL (70-99) Test 11/17/19 04:25 11/17/19 06:23 White Blood Count 11.5 x10^3/uL (4.0-11.0) Red Blood Count 2.77 x10^6/uL (3.50-5.40) Hemoglobin 7.6 g/dL (12.0-15.5) Hematocrit 23.6 % (36.0-47.0) Mean Corpuscular Volume 85 fL (79-100) Mean Corpuscular Hemoglobin 27 pg (25-35) Mean Corpuscular Hemoglobin Concent 32 g/dL (31-37) Red Cell Distribution Width 16.4 % (11.5-14.5) Platelet Count 671 x10^3/uL (140-400) Neutrophils (%) (Auto) 80 % (31-73) Lymphocytes (%) (Auto) 12 % (24-48) Monocytes (%) (Auto) 7 % (0-9) Eosinophils (%) (Auto) 1 % (0-3) Basophils (%) (Auto) 0 % (0-3) Neutrophils # (Auto) 9.2 x10^3/uL (1.8-7.7) Lymphocytes # (Auto) 1.4 x10^3/uL (1.0-4.8) Monocytes # (Auto) 0.8 x10^3/uL (0.0-1.1) Eosinophils # (Auto) 0.1 x10^3/uL (0.0-0.7) Basophils # (Auto) 0.0 x10^3/uL (0.0-0.2) Sodium Level 134 mmol/L (136-145) Potassium Level 3.7 mmol/L (3.5-5.1) Chloride Level 102 mmol/L (98-107) Carbon Dioxide Level 26 mmol/L (21-32) Anion Gap 6 (6-14) Blood Urea Nitrogen 9 mg/dL (7-20) Creatinine 0.5 mg/dL (0.6-1.0) Estimated GFR (Cockcroft-Gault) 131.1 Glucose Level 118 mg/dL (70-99) Calcium Level 11.3 mg/dL (8.5-10.1) Glucose (Fingerstick) 115 mg/dL (70-99) Laboratory Tests Test 11/16/19 12:35 11/16/19 18:11 11/16/19 23:54 11/17/19 04:25 Glucose (Fingerstick) 152 mg/dL (70-99) 120 mg/dL (70-99) 109 mg/dL (70-99) White Blood Count 11.5 x10^3/uL (4.0-11.0) Red Blood Count 2.77 x10^6/uL (3.50-5.40) Hemoglobin 7.6 g/dL (12.0-15.5) Hematocrit 23.6 % (36.0-47.0) Mean Corpuscular Volume 85 fL (79-100) Mean Corpuscular Hemoglobin 27 pg (25-35) Mean Corpuscular Hemoglobin Concent 32 g/dL (31-37) Red Cell Distribution Width 16.4 % (11.5-14.5) Platelet Count 671 x10^3/uL (140-400) Neutrophils (%) (Auto) 80 % (31-73) Lymphocytes (%) (Auto) 12 % (24-48) Monocytes (%) (Auto) 7 % (0-9) Eosinophils (%) (Auto) 1 % (0-3) Basophils (%) (Auto) 0 % (0-3) Neutrophils # (Auto) 9.2 x10^3/uL (1.8-7.7) Lymphocytes # (Auto) 1.4 x10^3/uL (1.0-4.8) Monocytes # (Auto) 0.8 x10^3/uL (0.0-1.1) Eosinophils # (Auto) 0.1 x10^3/uL (0.0-0.7) Basophils # (Auto) 0.0 x10^3/uL (0.0-0.2) Sodium Level 134 mmol/L (136-145) Potassium Level 3.7 mmol/L (3.5-5.1) Chloride Level 102 mmol/L (98-107) Carbon Dioxide Level 26 mmol/L (21-32) Anion Gap 6 (6-14) Blood Urea Nitrogen 9 mg/dL (7-20) Creatinine 0.5 mg/dL (0.6-1.0) Estimated GFR (Cockcroft-Gault) 131.1 Glucose Level 118 mg/dL (70-99) Calcium Level 11.3 mg/dL (8.5-10.1) Test 11/17/19 06:23 Glucose (Fingerstick) 115 mg/dL (70-99) Medications Active Scripts Medications Dose Route/Sig Max Daily Dose Days Date Category Bisoprolol Fumarate 5 Mg Tablet 10 Mg PO DAILY 07/04/[address] reviewed 10/30/19, Decreased left-sided effusion after catheter placement. The right-sided effusion has increased as has atelectasis. There has been exchange or placement of multiple drainage tubes and a gastrojejunostomy tube. Both collections are smaller. No significant new abdominal fluid collection is seen. The jejunal component of the gastrojejunostomy tube appears to be looped in the proximal small bowel. ct abdomen /pelvis 09/23 1. Removal of the percutaneous pigtail drainage catheters since the prior exam. Sequela of pancreatitis with extensive pseudocysts again demonstrated, the right-sided collections are slightly larger since the prior exam, the left-sided collections are stable. See above. 2. Moderate to large left pleural effusion with atelectasis and collapse of most of the left lower lobe, stable. Small right pleural effusion is stable. 3. Gallstone. ct chest 10/02 reviewed GRAM NEG COCCOBACILLI:MANY SQUAMOUS EPI CELL:RARE PMN (WBCs):FEW Unless otherwise specified, Testing Performed by: [address] [address] For Inquires, the Physician may contact the Microbiology department at [phone] RESPIRATORY CULTURE Final Final MANY GRAM NEGATIVE RODS on 10/03/19 at 1107 FINAL ID= [[email or web address]] MICRO CHARGES PSEUDOMONAS AERUGINOSA ANTIMICROBIAL SUSCEPTIBILITY Final Comment NEG ALEXANDRA 56 PSEUDOMONAS AERUGINOSA ANTIBIOTIC RESULT INTERPRETATION AMIKACIN <=16 S AZTREONAM <=4 S CEFTAZIDIME <=1 S CIPROFLOXACIN <=0.25 S CEFEPIME <=2 S CEFTAZIDIME/AVIBACTAM <=4 S GENTAMICIN <=2 S LEVOFLOXACIN <=0.5 S Impression . IMPRESSION: 1. Acute hypoxemic respiratory failure secondary to ARDS status post trach, developed anemia 09/24, blood drainage from RLQ abdomen drain site, and surrounding firmness / developed septic shock 09/24 from abdomen source, required levo / s/p 3 new drains 09/24 with brown color drainage, --- off pressors S/P Exp. 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 parapsilosis & PSAE (I-merrem/ceftazidime/AZT/cefepime)) Leucocytosis -improved Fever---resolved Acute gallstone pancreatitis with persistent necrosis - 07/27. CT A/P Increased ascites. 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 status post KAYLIN drain placement; C. parapsilosis. s/p drain 08/23 + yeast & high amylase; s/p additional drain on 08/25. Drains removed. -08/23. fluid devyn parapsilosis fluid, amylase high - 09/23 showed multiple pseudocysts, slight larger on the right. s/p drains x 3, 09/24. + PSAE (MDRO-R Cefepime, Zosyn ALEXANDRA < 64) and yeast, -09/24 s/p drain replacement x 3; fluid cult PSAE (MDRO), yeast; treated -10/29 CT A/P shows smaller fluid collections. -722 CT abdomen and pelvis drains in place Ascites s/p paracentesis 08/02 & 08/23. C. parapsilosis Cholelithiasis with thickening of the gallbladder wall. JUANA, Hyperkalemia, Metabolic acidosis off dialysis Acute hypoxic resp failure. trach/vent. sputum 09/30 + PSAE (I merrem) ; sputum culture November 05+ for PSAE R Merrem, sensitive to cefepime Pleural effusion status post CTS left side Abdominal fluid culture MDRO Pseudomonas, yeast Sputum culture positive 11/05 for MDRO Pseudomonas Chest tube fluid positive for 11/07 Devyn Parapsilosis S/P Exploratory laparotomy, lysis of adhesions, subtotal cholecystectomy with cholangiogram, gastrojejunostomy tube placement, pancreatic necrosectomy 11/09 fluid from the chest tube GRAM STAIN Final Final NO ORGANISMS SEEN. SQUAMOUS EPI CELL:NOT APPLICABLE PMN (WBCs):RARE Unless otherwise specified, Testing Performed by: [address] [address] For Inquires, the Physician may contact the Microbiology department at [phone] ANAEROBIC-AEROBIC CULTURE Preliminary Preliminary No Growth on 11/09/19 at 0957 Unless otherwise specified, Testing Performed by: [address] [address] For Inquires, the Physician may contact the Microbiology department at [phone] Antibiotics per ID, since 11/09 Avycaz,micafungin and dapto Plan . Stable from pulmonary stand point chest tube REMOVED 11/10 Transfuse as needed, monitor HGB Antibiotics per ID Trach shield, as tolerated, on room air-- attempt PMV/Capped Up to chair, PT/OT Follow surgery input DVT GI prophylaxis f/u BC /resp cultures DVT/GI PPX stable pulmonary mcmillan. will see PRN VINAYAK LANDRUM MD Nov 17, 2019 09:40
--- NOTE | 2019-11-17 10:28 | NUR ---
SS following up with discharge planning. SS reviewed pt chart and discussed with pt RN. Pt is currently on room air. Pt on PPN, IV Avycaz, IV Micafungin, and IV Daptmycin. Pt has wound vac on midline incision. Pt has KAYLIN drain x1 and Mook drain x1. Pt has G tube. Pt has ostomy bag on left KAYLIN drain site due to drainage. Per RN, pt pulling off speaking valve. Med Assist continuing to try to work with pt's family for disability application. SS will continue to follow for discharge planning.
[2019-11-17 11:00] VITALS: BP 144/69
--- NOTE | 2019-11-17 12:07 | PDOC ---
G I PROGRESS NOTE Subjective Sleeping, not awakened. Objective Discussed with staff. No new events. Physical Exam No formal PE. Drains noted. Review of Relevant I have reviewed the following items kolby (where applicable) has been applied. Labs Laboratory Tests Test 11/15/19 13:04 11/15/19 17:42 11/15/19 23:41 11/16/19 05:00 Glucose (Fingerstick) 131 mg/dL (70-99) 120 mg/dL (70-99) 122 mg/dL (70-99) White Blood Count 12.4 x10^3/uL (4.0-11.0) Red Blood Count 2.78 x10^6/uL (3.50-5.40) Hemoglobin 7.5 g/dL (12.0-15.5) Hematocrit 23.5 % (36.0-47.0) Mean Corpuscular Volume 84 fL (79-100) Mean Corpuscular Hemoglobin 27 pg (25-35) Mean Corpuscular Hemoglobin Concent 32 g/dL (31-37) Red Cell Distribution Width 16.0 % (11.5-14.5) Platelet Count 626 x10^3/uL (140-400) Neutrophils (%) (Auto) 83 % (31-73) Lymphocytes (%) (Auto) 9 % (24-48) Monocytes (%) (Auto) 6 % (0-9) Eosinophils (%) (Auto) 2 % (0-3) Basophils (%) (Auto) 0 % (0-3) Neutrophils # (Auto) 10.3 x10^3/uL (1.8-7.7) Lymphocytes # (Auto) 1.1 x10^3/uL (1.0-4.8) Monocytes # (Auto) 0.8 x10^3/uL (0.0-1.1) Eosinophils # (Auto) 0.2 x10^3/uL (0.0-0.7) Basophils # (Auto) 0.0 x10^3/uL (0.0-0.2) Sodium Level 134 mmol/L (136-145) Potassium Level 3.9 mmol/L (3.5-5.1) Chloride Level 101 mmol/L (98-107) Carbon Dioxide Level 26 mmol/L (21-32) Anion Gap 7 (6-14) Blood Urea Nitrogen 10 mg/dL (7-20) Creatinine 0.6 mg/dL (0.6-1.0) Estimated GFR (Cockcroft-Gault) 106.3 Glucose Level 131 mg/dL (70-99) Calcium Level 11.1 mg/dL (8.5-10.1) Test 11/16/19 05:40 11/16/19 12:35 11/16/19 18:11 11/16/19 23:54 Glucose (Fingerstick) 126 mg/dL (70-99) 152 mg/dL (70-99) 120 mg/dL (70-99) 109 mg/dL (70-99) Test 11/17/19 04:25 11/17/19 06:23 White Blood Count 11.5 x10^3/uL (4.0-11.0) Red Blood Count 2.77 x10^6/uL (3.50-5.40) Hemoglobin 7.6 g/dL (12.0-15.5) Hematocrit 23.6 % (36.0-47.0) Mean Corpuscular Volume 85 fL (79-100) Mean Corpuscular Hemoglobin 27 pg (25-35) Mean Corpuscular Hemoglobin Concent 32 g/dL (31-37) Red Cell Distribution Width 16.4 % (11.5-14.5) Platelet Count 671 x10^3/uL (140-400) Neutrophils (%) (Auto) 80 % (31-73) Lymphocytes (%) (Auto) 12 % (24-48) Monocytes (%) (Auto) 7 % (0-9) Eosinophils (%) (Auto) 1 % (0-3) Basophils (%) (Auto) 0 % (0-3) Neutrophils # (Auto) 9.2 x10^3/uL (1.8-7.7) Lymphocytes # (Auto) 1.4 x10^3/uL (1.0-4.8) Monocytes # (Auto) 0.8 x10^3/uL (0.0-1.1) Eosinophils # (Auto) 0.1 x10^3/uL (0.0-0.7) Basophils # (Auto) 0.0 x10^3/uL (0.0-0.2) Sodium Level 134 mmol/L (136-145) Potassium Level 3.7 mmol/L (3.5-5.1) Chloride Level 102 mmol/L (98-107) Carbon Dioxide Level 26 mmol/L (21-32) Anion Gap 6 (6-14) Blood Urea Nitrogen 9 mg/dL (7-20) Creatinine 0.5 mg/dL (0.6-1.0) Estimated GFR (Cockcroft-Gault) 131.1 Glucose Level 118 mg/dL (70-99) Calcium Level 11.3 mg/dL (8.5-10.1) Glucose (Fingerstick) 115 mg/dL (70-99) Laboratory Tests Test 11/16/19 12:35 11/16/19 18:11 11/16/19 23:54 11/17/19 04:25 Glucose (Fingerstick) 152 mg/dL (70-99) 120 mg/dL (70-99) 109 mg/dL (70-99) White Blood Count 11.5 x10^3/uL (4.0-11.0) Red Blood Count 2.77 x10^6/uL (3.50-5.40) Hemoglobin 7.6 g/dL (12.0-15.5) Hematocrit 23.6 % (36.0-47.0) Mean Corpuscular Volume 85 fL (79-100) Mean Corpuscular Hemoglobin 27 pg (25-35) Mean Corpuscular Hemoglobin Concent 32 g/dL (31-37) Red Cell Distribution Width 16.4 % (11.5-14.5) Platelet Count 671 x10^3/uL (140-400) Neutrophils (%) (Auto) 80 % (31-73) Lymphocytes (%) (Auto) 12 % (24-48) Monocytes (%) (Auto) 7 % (0-9) Eosinophils (%) (Auto) 1 % (0-3) Basophils (%) (Auto) 0 % (0-3) Neutrophils # (Auto) 9.2 x10^3/uL (1.8-7.7) Lymphocytes # (Auto) 1.4 x10^3/uL (1.0-4.8) Monocytes # (Auto) 0.8 x10^3/uL (0.0-1.1) Eosinophils # (Auto) 0.1 x10^3/uL (0.0-0.7) Basophils # (Auto) 0.0 x10^3/uL (0.0-0.2) Sodium Level 134 mmol/L (136-145) Potassium Level 3.7 mmol/L (3.5-5.1) Chloride Level 102 mmol/L (98-107) Carbon Dioxide Level 26 mmol/L (21-32) Anion Gap 6 (6-14) Blood Urea Nitrogen 9 mg/dL (7-20) Creatinine 0.5 mg/dL (0.6-1.0) Estimated GFR (Cockcroft-Gault) 131.1 Glucose Level 118 mg/dL (70-99) Calcium Level 11.3 mg/dL (8.5-10.1) Test 11/17/19 06:23 Glucose (Fingerstick) 115 mg/dL (70-99) Microbiology 11/13/19 Gram Stain - Final, Complete 11/13/19 Aerobic Culture - Final, Complete 11/13/19 Blood Culture - Preliminary, Resulted NO GROWTH AFTER 4 DAYS 11/13/19 Urine Culture - Preliminary, Resulted 11/08/19 Gram Stain - Final, Complete 11/08/19 Aerobic and Anaerobic Culture - Final, Complete 11/06/19 Gram Stain Evaluation - Final, Complete 11/06/19 Respiratory Culture - Final, Complete 11/06/19 Antimicrobic Susceptibility - Final, Complete 10/18/19 Gram Stain - Final, Complete 10/18/19 Aerobic and Anaerobic Culture - Final, Complete 10/18/19 Antimicrobic Susceptibility - Final, Complete Vitals/I & O Vital Sign - Last 24 Hours 11/16/19 11/16/19 11/16/19 11/16/19 12:41 13:00 15:20 15:52 Temp 99.3 99.3 Pulse 136 B/P (MAP) 145/87 (106) Pulse Ox 97 96 97 99 O2 Delivery Nasal Cannula Nasal Cannula Nasal Cannula Nasal Cannula O2 Flow Rate 2.0 2.0 2.0 2.0 11/16/19 11/16/19 11/16/19 11/16/19 19:20 19:56 20:01 20:07 Temp 99.0 99.0 99.0 99.0 Pulse 124 119 Resp 28 32 B/P (MAP) 161/73 (102) 167/90 (115) Pulse Ox 94 96 100 O2 Delivery Nasal Cannula Nasal Cannula Tracheal Collar Nasal Cannula O2 Flow Rate 2.0 2.0 2.0 11/16/19 11/16/19 11/16/19 11/16/19 22:44 23:14 23:30 23:32 Temp 98.7 98.7 Pulse 118 Resp 28 28 23 B/P (MAP) 131/68 (89) Pulse Ox 94 95 O2 Delivery Room Air Nasal Cannula Room Air Nasal Cannula O2 Flow Rate 2.0 11/17/19 11/17/19 11/17/19 11/17/19 03:16 03:25 07:00 07:45 Temp 97.8 98.4 97.8 98.4 Pulse 116 110 Resp 24 23 B/P (MAP) 150/83 (105) 157/80 (105) Pulse Ox 94 95 95 O2 Delivery Room Air Nasal Cannula Room Air Room Air O2 Flow Rate 2.0 11/17/19 11/17/19 11/17/19 11/17/19 08:39 09:08 09:38 11:46 Resp 28 28 Pulse Ox 95 95 93 96 O2 Delivery Nasal Cannula Room Air Room Air Nasal Cannula O2 Flow Rate 2.0 2.0 Intake and Output 11/16/19 11/16/19 11/17/19 15:00 23:00 07:00 Intake Total 200 ml 300 ml 1310 ml Output Total 300 ml 825 ml 760 ml Balance -100 ml -525 ml 550 ml 300+ out KAYLIN in GB fossa. Problem List Problems Medical Problems: (1) Acute pancreatitis Status: Acute (2) Cholelithiasis Status: Acute Assessment Remains critically ill. Concern for ongoing bilious drainage from GB bed. Plan of Care Note Continue support. Justicifation of Admission Dx: Justifications for Admission: Justification of Admission Dx: Yes MARY RIVAS MD Nov 17, 2019 12:07
[2019-11-17] MEDS ORDERED: LIDOCAINE WITH 8.4% SOD BICARB 3 ML DISP.SYRIN. INJ ONE (12:15)
--- NOTE | 2019-11-17 12:32 | PDOC ---
[facility] PROGRESS NOTE Chief Complaint Chief Complaint S/P Exp. 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 parapsilosis & PSAE (I-merrem/ceftazidime/AZT/cefepime)) Leucocytosis -trending upward Fever Acute gallstone pancreatitis with persistent necrosis Postop (Exploratory laparotomy, lysis of adhesions, subtotal cholecystectomy with cholangiogram, gastrojejunostomy tube placement, pancreatic necrosectomy) Acute hypoxic Respiratory failure required mechanical ventilation Tracheostomy bilateral pleural effusions/pulm edema s/p Throacentesis on 10/03/2019 Severe Acute gallstone pancreatitis (not a surgical candidate at this time) with necrosis Acute kidney failure now requiring dialysis Gallstones (Calculus of gallbladder with acute cholecystitis without obstru ction) HTN Intractable pain Intractable nausea Covid 19 negative. Acute on chronic anemia EEG: No seizure activity Fever - intermittent ? Ileus with vomiting Abd distention - U/S and CT reviewed s/p 0.4 L of opaque, debris-containing ascites was removed 08/23 Acute pancreatitis with persistent necrosis Gallstone pancreatitis with necrosis. -CT A/P 09/23 showed multiple pseudocysts, slight larger on the right. s/p drains x 3, 09/24. + PSAE (MDRO-R Cefepime, Zosyn ALEXANDRA < 64) and yeast, -s/p drain 08/14. C. parapsilosis. s/p drain 08/23 + yeast & high amylase; s/p additional drain on 08/25. Drains removed. Ascites s/p paracentesis 08/02 & 08/23. C. parapsilosis JUANA. off HD. A large fluid collection in the pancreatic bed has slightly decreased in size, described below, the pancreas itself is difficult to visualize, which could be due to necrosis or obscuration of pancreatic parenchyma from the surrounding fluid collection.10/02 - 08/14 status post KAYLIN drain placement + C paropsilosis. s/p additional drains 08/25 Anemia - S/p PRBCs. Cholelithiasis with thickening of the gallbladder wall. Leucocytosis improving JUANA, hyperkalemia, Metabolic acidosis off dialysis hypocalcemia Prediabetes HTN s/p trach Hyperglycemia severe protein-caloric malnutrition Moderate to large left pleural effusion with atelectasis and collapse of most of the left lower lobe, stable Extensive retroperitoneal fluid collections persist. Percutaneous drains remain within the collections in both paracolic gutters. These communicate with additi onal pelvic and peripancreatic collections. PLAN Continue Avycaz /micafungin, DC dapto per ID recommendations Negative C diff BC from 11/01 neg to date 11/12 PICC line removed will start PPN for 24 hours then replace PICC line other side Follow surgery input regarding diet and drains, pending GJ tube placement with IR before restarting tube feeds. DVT GI prophylaxis f/u BC /resp cultures continue DVT/GI PPX Discussed with RN 40 MIN CC TIME History of Present Illness History of Present Illness 11/17/2019 Patient seen and examined bedside. No acute events overnight. Patient's chart, labs, images were reviewed and discussed with RN 11/15/2019 Patient seen and examined bedside. Patient appears to be in no obvious pain. All drains have been adequately draining. Patient continues to be on TPN. Chart labs and imaging was reviewed. Negative fluid balance of 270 cc 11/14/2019 Patient seen and examined in the ICU. Patient still requires extensive care. 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 Chart, labs, imaging was reviewed. UOP with + 500cc balance. 11/11 Patient seen in and examined in the ICU She is still extremely critically ill Appears weak, frail, and pale Better color today with improved eye contact and expression Discussed with RN Chart reviewed 11/08/2019 Patient seen and examined in the ICU She is still extremely critically ill Appears extremely weak frail and pale Discussed with RN Chart reviewed Vitals/I&O Vitals/I&O: Vital Signs Date Time Temp Pulse Resp B/P (MAP) Pulse Ox O2 Delivery O2 Flow Rate FiO2 11/17/19 11:46 96 Nasal Cannula 2.0 11/17/19 09:38 28 11/17/19 07:00 98.4 110 157/80 (105) 98.4 I & O 11/16/19 11/16/19 11/17/19 15:00 23:00 07:00 Intake Total 200 ml 300 ml 1310 ml Output Total 300 ml 825 ml 760 ml Balance -100 ml -525 ml 550 ml Physical Exam Physical Exam: GENERAL: pt in bed, appears weak -comfortable -alert HEENT: Pupils equal, oral cavity dry. OC/Op - Dry NECK: Tracheostomy - no JVD LUNGS: Diminished aeration bases, CT on left HEART: S1, S2, ABDOMEN: Distended mild- bowel sounds hypoactive, soft, goyal x 2, KAYLIN drains, G-J tube : Lind in place EXTREMITIES: Trace generalized edema, no cyanosis. SKIN: warm touch. No signs of rash. LUE- Previous PICC site without signs of complications. PIV s clean NEURO: - Alert and responsive PIVs clean General: Alert, Cooperative Heart: Other (distant heart sounds, tachycardic) Lungs: Crackles Abdomen: Soft, Other (drains in place) Extremities: Other (Diffuse edema) Skin: No rashes, No significant lesion Labs Labs: Laboratory Tests Test 11/16/19 12:35 11/16/19 18:11 11/16/19 23:54 11/17/19 04:25 Glucose (Fingerstick) 152 mg/dL (70-99) 120 mg/dL (70-99) 109 mg/dL (70-99) White Blood Count 11.5 x10^3/uL (4.0-11.0) Red Blood Count 2.77 x10^6/uL (3.50-5.40) Hemoglobin 7.6 g/dL (12.0-15.5) Hematocrit 23.6 % (36.0-47.0) Mean Corpuscular Volume 85 fL (79-100) Mean Corpuscular Hemoglobin 27 pg (25-35) Mean Corpuscular Hemoglobin Concent 32 g/dL (31-37) Red Cell Distribution Width 16.4 % (11.5-14.5) Platelet Count 671 x10^3/uL (140-400) Neutrophils (%) (Auto) 80 % (31-73) Lymphocytes (%) (Auto) 12 % (24-48) Monocytes (%) (Auto) 7 % (0-9) Eosinophils (%) (Auto) 1 % (0-3) Basophils (%) (Auto) 0 % (0-3) Neutrophils # (Auto) 9.2 x10^3/uL (1.8-7.7) Lymphocytes # (Auto) 1.4 x10^3/uL (1.0-4.8) Monocytes # (Auto) 0.8 x10^3/uL (0.0-1.1) Eosinophils # (Auto) 0.1 x10^3/uL (0.0-0.7) Basophils # (Auto) 0.0 x10^3/uL (0.0-0.2) Sodium Level 134 mmol/L (136-145) Potassium Level 3.7 mmol/L (3.5-5.1) Chloride Level 102 mmol/L (98-107) Carbon Dioxide Level 26 mmol/L (21-32) Anion Gap 6 (6-14) Blood Urea Nitrogen 9 mg/dL (7-20) Creatinine 0.5 mg/dL (0.6-1.0) Estimated GFR (Cockcroft-Gault) 131.1 Glucose Level 118 mg/dL (70-99) Calcium Level 11.3 mg/dL (8.5-10.1) Test 11/17/19 06:23 Glucose (Fingerstick) 115 mg/dL (70-99) Assessment and Plan Assessmemt and Plan Problems Medical Problems: (1) Acute pancreatitis Status: Acute (2) Cholelithiasis Status: Acute Comment Review of Relevant I have reviewed the following items kolby (where applicable) has been applied. Justicifation of Admission Dx: Justifications for Admission: Justification of Admission Dx: Yes ADRIANNE SAM MD Nov 17, 2019 12:32
[2019-11-17 15:00] VITALS: BP 137/82
--- NOTE | 2019-11-17 15:14 | RAD ---
Exam: Fluoroscopic and ultrasound guided right percutaneous inserted central venous catheter placement 11/17/2019 1:09 PM .Indication: venous access Technique: Informed oral and written consent were obtained. The right upper extremity was prepped and draped using sterile barrier technique. All elements of maximal sterile barrier technique including the use of a cap, mask, sterile gown, sterile gloves, large sterile sheet, appropriate hand hygiene, and 2% chlorhexidine for cutaneous antisepsis (or acceptable alternative antiseptic per current guidelines) were followed for this procedure.. Real-time ultrasound demonstrated a patent right basilic vein which was prepped and draped in usual sterile fashion. 1% lidocaine used for local anesthesia. Using real-time ultrasound guidance the access needle percutaneously punctured the selected right basilic vein. Reference ultrasound images were saved to the medical record. A guidewire was advanced through the needle to the cavoatrial junction, and a peel-away sheath placed. The catheter was cut to length and inserted through the peel-away sheath such that its tip is at the cavoatrial junction. The wire and sheath were removed, and the catheter secured in place, and a sterile dressing was applied. Catheter was found to flush and aspirate normally. No immediate complications are identified. FLUORO TIME: 0.5 minutes DOSE AREA PRODUCT: 0.5 Gycm2 Impression: Ultrasound and fluoroscopically guided placement of a right upper extremity PICC line.
[2019-11-17 19:00] VITALS: BP 144/85
[2019-11-17 23:04] VITALS: BP 157/82
[2019-11-18] MEDS: IPRATRPIUM/ALBUTEROL 0.5/2.5MG 3 ML NEBU. NEB SCH ×7 (00:37→22:55)
[2019-11-18] MEDS: AMINO AC 3%/ELECTROLYTE/GLYCER 1,000 ML IV SCH ×2 (02:45→17:33)
[2019-11-18 03:00] VITALS: BP 127/80
[2019-11-18] MEDS: INSULIN LISPRO 300 UNITS/3 ML VIAL. SQ SCH ×4 (05:02→23:40)
[2019-11-18] MEDS: CEFTAZIDIME/AVIBACTAM 2.5 GM in IV NORMAL SALINE 250ML 250 ML IV SCH ×3 (05:02→21:59)
[2019-11-18 07:20] VITALS: BP 132/78
--- NOTE | 2019-11-18 07:28 | PDOC ---
Infectious Disease Note Subjective Subjective States ok. Mild nausea No SOAF/S/C. pain ok ROS ROS o/w neg Vital Sign Vital Signs Vital Signs Date Time Temp Pulse Resp B/P (MAP) Pulse Ox O2 Delivery O2 Flow Rate FiO2 11/18/19 03:45 Room Air 11/18/19 03:00 97.1 112 22 127/80 (96) 96 97.1 11/17/19 21:20 2.0 Physical Exam PHYSICAL EXAM GENERAL: pt in bed, appears weak -comfortable -alert HEENT: Pupils equal, oral cavity dry. OC/Op - Dry NECK: Tracheostomy - no JVD LUNGS: Diminished aeration bases, CT on left HEART: S1, S2, ABDOMEN: Distended mild- bowel sounds hypoactive, soft, goyal x 2, KAYLIN drains, G-J tube. Some drainage around R quad tube and mild insertion site irritation : Lind in place EXTREMITIES: Trace generalized edema, no cyanosis. Yeast in groin area SKIN: warm touch. No signs of rash. LUE- Previous PICC site without signs of complications. PIV s clean NEURO: - Alert and responsive PICC RUE - clean Labs Lab Laboratory Tests Test 11/17/19 17:49 11/17/19 23:00 11/18/19 05:01 Glucose (Fingerstick) 137 mg/dL (70-99) 117 mg/dL (70-99) 146 mg/dL (70-99) Micro 6/7 GRAM STAIN Final Final GRAM NEGATIVE RODS:MODERATE SQUAMOUS EPI CELL:NOT APPLICABLE PMN (WBCs):RARE YEAST:MODERATE Unless otherwise specified, Testing Performed by: [address] [address] For Inquires, the Physician may contact the Microbiology department at [phone] ANAEROBIC-AEROBIC CULTURE Preliminary Preliminary MANY GRAM NEGATIVE RODS on 09/27/19 at 1153 FINAL ID= [[email or web address]] PSEUDOMONAS AERUGINOSA ANTIMICROBIAL SUSCEPTIBILITY Preliminary Comment NEG ALEXANDRA 56 PSEUDOMONAS AERUGINOSA ANTIBIOTIC RESULT INTERPRETATION AMIKACIN <=16 S AZTREONAM >16 R CEFTAZIDIME >16 R CIPROFLOXACIN <=0.25 S CEFEPIME 16 I CEFTAZIDIME/AVIBACTAM <=4 S GENTAMICIN <=2 S CONTINUED ON NEXT PAGE RUN DATE: 09/29/19 [facility] *LIVE* PAGE 2 RUN TIME: 1016 Specimen Inquiry SPEC: [id number] PATIENT: POLOSCOTT K [id number] (Continued) Procedure Result ANTIMICROBIAL SUSCEPTIBILITY Preliminary (continued) LEVOFLOXACIN <=0.5 S MEROPENEM <=1 S PIPERACILLIN/TAZOBACTAM 64 S TOBRAMYCIN <=2 S Unless otherwise specified, Testing Performed by: [address] [id number] For Inquires, the Physician may contact the Microbiology department at [phone] CT Scan 09/23 IMPRESSION: 1. Removal of the percutaneous pigtail drainage catheters since the prior exam. Sequela of pancreatitis with extensive pseudocysts again demonstrated, the right-sided collections are slightly larger since the prior exam, the left-sided collections are stable. See above. 2. Moderate to large left pleural effusion with atelectasis and collapse of most of the left lower lobe, stable. Small right pleural effusion is stable. 3. Gallstone. Objective Assessment Patient with prolonged hospitalization more than 4 months Multiple medical problems Multiple surgical procedures URINE with parapsilosis S/P Exp. 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 pa rapsilosis & PSAE (I-merrem/ceftazidime/AZT/cefepime)) Leukocytosis - better ? reactive as clinically looks well Fever - 11/11 c-diff neg Anemia Acute gallstone pancreatitis with persistent necrosis - 07/27. CT A/P Increased ascites. 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 status post KAYLIN drain placement; C. parapsilosis. s/p drain 08/23 + yeast & high amylase; s/p additional drain on 08/25. Drains removed. -08/23. fluid devyn parapsilosis fluid, amylase high - 09/23 showed multiple pseudocysts, slight larger on the right. s/p drains x 3, 09/24. + PSAE (MDRO-R Cefepime, Zosyn ALEXANDRA < 64) and yeast, -09/24 s/p drain replacement x 3; fluid cult PSAE (MDRO), yeast; treated -10/29 CT A/P shows smaller fluid collections. -722 CT abdomen and pelvis drains in place Ascites s/p paracentesis 08/02 & 08/23. C. parapsilosis Cholelithiasis with thickening of the gallbladder wall. JUANA, Hyperkalemia, Metabolic acidosis off dialysis Acute hypoxic resp failure. trach/vent. sputum 09/30 + PSAE (I merrem) ; sputum culture November 05+ for PSAE R Merrem, sensitive to cefepime Pleural effusion status post CTS left side Abdominal fluid culture MDRO Pseudomonas, yeast Sputum culture positive 11/05 for MDRO Pseudomonas Chest tube fluid positive for 11/07 Devyn Parapsilosis Plan Plan of Care Lind changed 11/13 Continue Avycaz 11/09 /micafungin 10/17 Restart daptomycin 11/12(CK <7 11/14) wean soon CBC/BMP in am Nystatin to groin UA and urine culture Blood culture/Cath tip neg - neg C. 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
[2019-11-18] MEDS: ACETYLCYSTEINE 20% for RESP TX 600 MG/3 ML. NEB SCH ×2 (08:27→20:00)
[2019-11-18] MEDS: ENOXAPARIN 40 MG/0.4 ML SYRINGE. SQ SCH (08:38)
[2019-11-18] MEDS: MICAFUNGIN 100 MG in IV DEXTROSE 5% 100ML 100 ML IV SCH (08:38)
[2019-11-18] MEDS: PANTOPRAZOLE IV PUSH 40 MG VIAL. IVP SCH (08:39)
[2019-11-18] MEDS: fentaNYL 12MCG/HR PATCH 1 PATCH PATCH.TD72 TD SCH (08:40)
[2019-11-18] MEDS: DAPTOmycin (GENERIC) IVPB 500 MG in IV NORMAL SALINE 50ML 50 ML IV SCH (09:53)
--- NOTE | 2019-11-18 10:45 | PDOC ---
SURGICAL PROGRESS NOTE Subjective resting no complaints Vital Signs Vital Signs Date Time Temp Pulse Resp B/P (MAP) Pulse Ox O2 Delivery O2 Flow Rate FiO2 11/18/19 08:40 96 Room Air 11/18/19 07:20 98.5 112 20 132/78 (96) 98.5 11/17/19 21:20 2.0 I&O Intake and Output 11/18/19 07:00 Intake Total 2243 ml Output Total 1610 ml Balance 633 ml IV Total 1283 ml Tube Feeding 860 ml Other 100 ml Output Urine Total 975 ml Drainage Total 635 ml # Bowel Movements 2 General: Cooperative, No acute distress Abdomen: Soft, Other (multiple drains) Labs Laboratory Tests Test 11/16/19 12:35 11/16/19 18:11 11/16/19 23:54 11/17/19 04:25 Glucose (Fingerstick) 152 mg/dL (70-99) 120 mg/dL (70-99) 109 mg/dL (70-99) White Blood Count 11.5 x10^3/uL (4.0-11.0) Red Blood Count 2.77 x10^6/uL (3.50-5.40) Hemoglobin 7.6 g/dL (12.0-15.5) Hematocrit 23.6 % (36.0-47.0) Mean Corpuscular Volume 85 fL (79-100) Mean Corpuscular Hemoglobin 27 pg (25-35) Mean Corpuscular Hemoglobin Concent 32 g/dL (31-37) Red Cell Distribution Width 16.4 % (11.5-14.5) Platelet Count 671 x10^3/uL (140-400) Neutrophils (%) (Auto) 80 % (31-73) Lymphocytes (%) (Auto) 12 % (24-48) Monocytes (%) (Auto) 7 % (0-9) Eosinophils (%) (Auto) 1 % (0-3) Basophils (%) (Auto) 0 % (0-3) Neutrophils # (Auto) 9.2 x10^3/uL (1.8-7.7) Lymphocytes # (Auto) 1.4 x10^3/uL (1.0-4.8) Monocytes # (Auto) 0.8 x10^3/uL (0.0-1.1) Eosinophils # (Auto) 0.1 x10^3/uL (0.0-0.7) Basophils # (Auto) 0.0 x10^3/uL (0.0-0.2) Sodium Level 134 mmol/L (136-145) Potassium Level 3.7 mmol/L (3.5-5.1) Chloride Level 102 mmol/L (98-107) Carbon Dioxide Level 26 mmol/L (21-32) Anion Gap 6 (6-14) Blood Urea Nitrogen 9 mg/dL (7-20) Creatinine 0.5 mg/dL (0.6-1.0) Estimated GFR (Cockcroft-Gault) 131.1 Glucose Level 118 mg/dL (70-99) Calcium Level 11.3 mg/dL (8.5-10.1) Test 11/17/19 06:23 11/17/19 17:49 11/17/19 23:00 11/18/19 05:01 Glucose (Fingerstick) 115 mg/dL (70-99) 137 mg/dL (70-99) 117 mg/dL (70-99) 146 mg/dL (70-99) Test 11/18/19 08:36 Glucose (Fingerstick) 141 mg/dL (70-99) Laboratory Tests Test 11/17/19 17:49 11/17/19 23:00 11/18/19 05:01 11/18/19 08:36 Glucose (Fingerstick) 137 mg/dL (70-99) 117 mg/dL (70-99) 146 mg/dL (70-99) 141 mg/dL (70-99) Problem List Problems Medical Problems: (1) Acute pancreatitis Status: Acute (2) Cholelithiasis Status: Acute Assessment/Plan supportive measures Justicifation of Admission Dx: Justifications for Admission: Justification of Admission Dx: Yes 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 DIRECTOR MBA Nov 18, 2019 10:45
[2019-11-18 11:00] VITALS: BP 137/85
[2019-11-18] MEDS: METOPROLOL TARTRATE 5 MG/5 ML VIAL. IVP PRN (11:57)
--- NOTE | 2019-11-18 12:01 | NUR ---
SS following up wit hdsicharge planning. SS reviewed pt chart and discussed with pt RN. Pt is currently on room air. Pt has KAYLIN drain x1 and Mook drain x1. Pt has GJ tube. Per RN, pt on PPN and tube feeds. Pt on IV Daptomycin, IV Avycaz, and IV Micafungin. Pt has wound vac on midline incision. Pt Max Assist with PT/OT and staff. Pt remains self pay. Med Assist attempting to work with family to obtain needed information for disability application. SS will continue to follow for discharge planning.
--- NOTE | 2019-11-18 13:54 | PDOC ---
G I PROGRESS NOTE Objective Others' notes reviewed. Review of Relevant I have reviewed the following items kolby (where applicable) has been applied. Labs Laboratory Tests Test 11/16/19 18:11 11/16/19 23:54 11/17/19 04:25 11/17/19 06:23 Glucose (Fingerstick) 120 mg/dL (70-99) 109 mg/dL (70-99) 115 mg/dL (70-99) White Blood Count 11.5 x10^3/uL (4.0-11.0) Red Blood Count 2.77 x10^6/uL (3.50-5.40) Hemoglobin 7.6 g/dL (12.0-15.5) Hematocrit 23.6 % (36.0-47.0) Mean Corpuscular Volume 85 fL (79-100) Mean Corpuscular Hemoglobin 27 pg (25-35) Mean Corpuscular Hemoglobin Concent 32 g/dL (31-37) Red Cell Distribution Width 16.4 % (11.5-14.5) Platelet Count 671 x10^3/uL (140-400) Neutrophils (%) (Auto) 80 % (31-73) Lymphocytes (%) (Auto) 12 % (24-48) Monocytes (%) (Auto) 7 % (0-9) Eosinophils (%) (Auto) 1 % (0-3) Basophils (%) (Auto) 0 % (0-3) Neutrophils # (Auto) 9.2 x10^3/uL (1.8-7.7) Lymphocytes # (Auto) 1.4 x10^3/uL (1.0-4.8) Monocytes # (Auto) 0.8 x10^3/uL (0.0-1.1) Eosinophils # (Auto) 0.1 x10^3/uL (0.0-0.7) Basophils # (Auto) 0.0 x10^3/uL (0.0-0.2) Sodium Level 134 mmol/L (136-145) Potassium Level 3.7 mmol/L (3.5-5.1) Chloride Level 102 mmol/L (98-107) Carbon Dioxide Level 26 mmol/L (21-32) Anion Gap 6 (6-14) Blood Urea Nitrogen 9 mg/dL (7-20) Creatinine 0.5 mg/dL (0.6-1.0) Estimated GFR (Cockcroft-Gault) 131.1 Glucose Level 118 mg/dL (70-99) Calcium Level 11.3 mg/dL (8.5-10.1) Test 11/17/19 17:49 11/17/19 23:00 11/18/19 05:01 11/18/19 08:36 Glucose (Fingerstick) 137 mg/dL (70-99) 117 mg/dL (70-99) 146 mg/dL (70-99) 141 mg/dL (70-99) Test 11/18/19 12:07 Glucose (Fingerstick) 159 mg/dL (70-99) Laboratory Tests Test 11/17/19 17:49 11/17/19 23:00 11/18/19 05:01 11/18/19 08:36 Glucose (Fingerstick) 137 mg/dL (70-99) 117 mg/dL (70-99) 146 mg/dL (70-99) 141 mg/dL (70-99) Test 11/18/19 12:07 Glucose (Fingerstick) 159 mg/dL (70-99) Microbiology 11/13/19 Gram Stain - Final, Complete 11/13/19 Aerobic Culture - Final, Complete 11/13/19 Blood Culture - Final, Complete NO GROWTH AFTER 5 DAYS 11/13/19 Urine Culture - Final, Complete 11/08/19 Gram Stain - Final, Complete 11/08/19 Aerobic and Anaerobic Culture - Final, Complete 11/06/19 Gram Stain Evaluation - Final, Complete 11/06/19 Respiratory Culture - Final, Complete 11/06/19 Antimicrobic Susceptibility - Final, Complete 10/18/19 Gram Stain - Final, Complete 10/18/19 Aerobic and Anaerobic Culture - Final, Complete 10/18/19 Antimicrobic Susceptibility - Final, Complete Medications Current Medications Sodium Chloride 1,000 ml @ 1,000 mls/hr Q1H IV Last administered on 07/04/19at 03:00; Start 07/04/19 at 03:00; Stop 07/04/19 at 03:59; Status DC Ondansetron HCl (Zofran) 4 mg 1X ONCE IVP Last administered on 07/04/19at 03:27; Start 07/04/19 at 03:00; Stop 07/04/19 at 03:01; Status DC Morphine Sulfate (Morphine Sulfate) 4 mg 1X ONCE IV ; Start 07/04/19 at 03:00; Stop 07/04/19 at 03:01; Status Cancel Ketorolac Tromethamine (Toradol 30mg Vial) 30 mg 1X ONCE IV Last administered on 07/04/19at 02:54; Start 07/04/19 at 03:00; Stop 07/04/19 at 03:01; Status DC Fentanyl Citrate (Fentanyl 2ml Vial) 25 mcg 1X ONCE IVP Last administered on 07/04/19at 03:23; Start 07/04/19 at 03:30; Stop 07/04/19 at 03:31; Status DC Fentanyl Citrate (Fentanyl 2ml Vial) 100 mcg STK-MED ONCE .ROUTE ; Start 07/04/19 at 03:18; Stop 07/04/19 at 03:18; Status DC Iohexol (Omnipaque 350 Mg/ml) 90 ml 1X ONCE IV Last administered on 07/04/19at 03:25; Start 07/04/19 at 03:30; Stop 07/04/19 at 03:31; Status DC Info (CONTRAST GIVEN -- Rx MONITORING) 1 each PRN DAILY PRN MC SEE COMMENTS; Start 07/04/19 at 03:30; Stop 07/06/19 at 03:29; Status DC Hydromorphone HCl (Dilaudid) 0.5 mg 1X ONCE IV Last administered on 07/04/19at 03:55; Start 07/04/19 at 04:30; Stop 07/04/19 at 04:32; Status DC Ondansetron HCl (Zofran) 4 mg PRN Q8HRS PRN IV NAUSEA/VOMITING 1ST CHOICE; Start 07/04/19 at 05:00; Stop 07/04/19 at 09:27; Status DC Morphine Sulfate (Morphine Sulfate) 2 mg PRN Q2HR PRN IV SEVERE PAIN 7-10 Last administered on 07/05/19at 12:26; Start 07/04/19 at 05:00; Stop 07/05/19 at 14:15; Status DC Sodium Chloride 1,000 ml @ 125 mls/hr Q8H IV Last administered on 07/04/19at 20:56; Start 07/04/19 at 05:00; Stop 07/05/19 at 04:59; Status DC Hydromorphone HCl (Dilaudid) 0.5 mg PRN Q3HRS PRN IV SEVERE PAIN 7-10 Last administered on 07/05/19at 10:06; Start 07/04/19 at 05:00; Stop 07/05/19 at 12:01; Status DC Piperacillin Sod/ Tazobactam Sod 4.5 gm/Sodium Chloride 100 ml @ 200 mls/hr 1X ONCE IV Last administered on 07/04/19at 05:44; Start 07/04/19 at 06:00; Stop 07/04/19 at 06:29; Status DC Ondansetron HCl (Zofran) 4 mg PRN Q4HRS PRN IV NAUSEA/VOMITING 1ST CHOICE Last administered on 11/16/19at 22:53; Start 07/04/19 at 09:30 Insulin Human Lispro (HumaLOG) 0-9 UNITS Q6HRS SQ Last administered on 11/18/19at 12:15; Start 07/04/19 at 09:30 Dextrose (Dextrose 50%-Water Syringe) 12.5 gm PRN Q15MIN PRN IV SEE COMMENTS; Start 07/04/19 at 09:30 Pantoprazole Sodium (PROTONIX VIAL for IV PUSH) 40 mg DAILYAC IVP Last administered on 11/18/19at 08:39; Start 07/04/19 at 11:30 Prochlorperazine Edisylate (Compazine) 10 mg PRN Q6HRS PRN IV NAUSEA/VOMITING, 2nd CHOICE Last administered on 11/14/19at 09:49; Start 07/04/19 at 17:45 Atenolol (Tenormin) 100 mg DAILY PO ; Start 07/05/19 at 09:00; Stop 07/04/19 at 20:08; Status DC Metoprolol Tartrate (Lopressor Vial) 2.5 mg Q6HRS IVP Last administered on 07/05/19at 05:51; Start 07/04/19 at 20:15; Stop 07/05/19 at 10:02; Status DC Metoprolol Tartrate (Lopressor Vial) 5 mg Q6HRS IVP Last administered on 07/14/19at 00:12; Start 07/05/19 at 10:15; Stop 07/16/19 at 08:48; Status DC Hydromorphone HCl (Dilaudid) 1 mg PRN Q3HRS PRN IV SEVERE PAIN 7-10 Last administered on 07/11/19at 05:13; Start 07/05/19 at 12:00; Stop 07/19/19 at 00:25; Status DC Lidocaine HCl (Buffered Lidocaine 1%) 3 ml STK-MED ONCE .ROUTE ; Start 07/05/19 at 12:55; Stop 07/05/19 at 12:56; Status DC Albumin Human 500 ml @ 125 mls/hr 1X ONCE IV Last administered on 07/05/19at 14:33; Start 07/05/19 at 14:30; Stop 07/05/19 at 18:32; Status DC Norepinephrine Bitartrate 8 mg/ Dextrose 258 ml @ 17.299 mls/ hr CONT PRN IV PER PROTOCOL Last administered on 08/02/19at 12:48; Start 07/05/19 at 15:30; Stop 08/05/19 at 09:19; Status DC Sodium Chloride 1,000 ml @ 125 mls/hr Q8H IV Last administered on 07/05/19at 21:04; Start 07/05/19 at 16:00; Stop 07/06/19 at 02:42; Status DC Albumin Human 500 ml @ 125 mls/hr PRN BID PRN IV After every 2L NSS & BP < 90mm Last administered on 10/18/19at 16:06; Start 07/05/19 at 16:00; Stop 10/21/19 at 09:30; Status DC Iohexol (Omnipaque 300 Mg/ml) 60 ml 1X ONCE IV Last administered on 07/05/19at 17:20; Start 07/05/19 at 17:00; Stop 07/05/19 at 17:01; Status DC Info (CONTRAST GIVEN -- Rx MONITORING) 1 each PRN DAILY PRN MC SEE COMMENTS; Start 07/05/19 at 17:00; Stop 07/07/19 at 16:59; Status DC Meropenem 1 gm/ Sodium Chloride 100 ml @ 200 mls/hr Q8HRS IV Last administered on 07/06/19at 05:45; Start 07/05/19 at 20:00; Stop 07/06/19 at 08:48; Status DC Furosemide (Lasix) 40 mg 1X ONCE IVP Last administered on 07/05/19at 22:12; Start 07/05/19 at 22:30; Stop 07/05/19 at 22:31; Status DC Calcium Chloride 1000 mg/Sodium Chloride 110 ml @ 220 mls/hr 1X ONCE IV Last administered on 07/05/19at 22:11; Start 07/05/19 at 22:30; Stop 07/05/19 at 22 :59; Status DC Albuterol Sulfate (Ventolin Neb Soln) 2.5 mg 1X ONCE NEB Last administered on 07/06/19at 00:56; Start 07/05/19 at 22:30; Stop 07/05/19 at 22:31; Status DC Insulin Human Regular (HumuLIN R VIAL) 5 unit 1X ONCE IV Last administered on 07/05/19at 22:14; Start 07/05/19 at 22:30; Stop 07/05/19 at 22:31; Status DC Magnesium Sulfate 50 ml @ 25 mls/hr 1X ONCE IV Last administered on 07/06/19at 02:57; Start 07/06/19 at 03:00; Stop 07/06/19 at 04:59; Status DC Calcium Gluconate 1000 mg/Sodium Chloride 110 ml @ 220 mls/hr 1X ONCE IV Last administered on 07/06/19at 02:46; Start 07/06/19 at 03:00; Stop 07/06/19 at 03:29; Status DC Sodium Chloride 1,000 ml @ 200 mls/hr Q5H IV Last administered on 07/06/19at 02:46; Start 07/06/19 at 03:00; Stop 07/06/19 at 10:21; Status DC Calcium Gluconate 1000 mg/Sodium Chloride 110 ml @ 220 mls/hr 1X ONCE IV Last administered on 07/06/19at 03:21; Start 07/06/19 at 03:30; Stop 07/06/19 at 03:59; Status DC Sodium Bicarbonate 50 meq/Sodium Chloride 1,050 ml @ 75 mls/hr Q14H IV Last administered on 07/10/19at 21:10; Start 07/06/19 at 07:30; Stop 07/11/19 at 10:28; Status DC Calcium Gluconate 2000 mg/Sodium Chloride 120 ml @ 220 mls/hr 1X ONCE IV Last administered on 07/06/19at 09:05; Start 07/06/19 at 07:30; Stop 07/06/19 at 08:02; Status DC Lidocaine HCl (Xylocaine-Mpf 1% 2ml Vial) 2 ml STK-MED ONCE .ROUTE ; Start 07/06/19 at 08:47; Stop 07/06/19 at 08:47; Status DC Meropenem 500 mg/ Sodium Chloride 50 ml @ 100 mls/hr Q12HR IV Last administered on 07/11/19at 21:01; Start 07/06/19 at 18:00; Stop 07/12/19 at 07:58; Status DC Lidocaine HCl (Buffered Lidocaine 1%) 3 ml STK-MED ONCE .ROUTE ; Start 07/06/19 at 09:46; Stop 07/06/19 at 09:46; Status DC Lidocaine HCl (Buffered Lidocaine 1%) 6 ml 1X ONCE INJ Last administered on 07/06/19at 10:26; Start 07/06/19 at 10:15; Stop 07/06/19 at 10:16; Status DC Info (Tpn Per Pharmacy) 1 each PRN DAILY PRN MC SEE COMMENTS Last administered on 11/13/19at 08:31; Start 07/06/19 at 12:00; Stop 11/13/19 at 10:41; Status DC Sodium Chloride 1,000 ml @ 1,000 mls/hr Q1H PRN IV hypotension; Start 07/06/19 at 12:07; Stop 07/06/19 at 18:06; Status DC Diphenhydramine HCl (Benadryl) 25 mg 1X PRN PRN IV ITCHING; Start 07/06/19 at 12:15; Stop 07/07/19 at 12:14; Status DC Diphenhydramine HCl (Benadryl) 25 mg 1X PRN PRN IV ITCHING; Start 07/06/19 at 12:15; Stop 07/07/19 at 12:14; Status DC Sodium Chloride 1,000 ml @ 400 mls/hr Q2H30M PRN IV PATENCY; Start 07/06/19 at 12:07; Stop 07/07/19 at 00:06; Status DC Info (PHARMACY MONITORING -- do not chart) 1 each PRN DAILY PRN MC SEE COMMENTS; Start 07/06/19 at 12:15; Stop 07/08/19 at 08:13; Status DC Sodium Chloride 90 meq/Calcium Gluconate 10 meq/ Multivitamins 10 ml/Chromium/ Copper/Manganese/ Seleni/Zn 1 ml/ Total Parenteral Nutrition/Amino Acids/Dextrose/ Fat Emulsion Intravenous 55.005 ml @ 2.292 mls/hr TPN CONT IV ; Start 07/06/19 at 22:00; Stop 07/06/19 at 12:33; Status DC Info (Tpn Per Pharmacy) 1 each PRN DAILY PRN MC SEE COMMENTS; Start 07/06/19 at 12:30; Status UNV Sodium Chloride 90 meq/Calcium Gluconate 10 meq/ Multivitamins 10 ml/Chromium/ Copper/Manganese/ Seleni/Zn 0.5 ml/ Total Parenteral Nutrition/Amino Acids/Dextrose/ Fat Emulsion Intravenous 1,512 ml @ 63 mls/hr TPN CONT IV Last administered on 07/06/19at 22:06; Start 07/06/19 at 22:00; Stop 07/07/19 at 21:59; Status DC Calcium Carbonate/ Glycine (Tums) 500 mg PRN AFTMEALHC PRN PO INDIGESTION; Start 07/06/19 at 17:45; Stop 08/31/19 at 10:25; Status DC Calcium Gluconate (Calcium Gluconate) 2,000 mg 1X ONCE IVP Last administered on 07/07/19at 02:19; Start 07/07/19 at 02:15; Stop 07/07/19 at 02:16; Status DC Calcium Chloride 3000 mg/Sodium Chloride 1,030 ml @ 50 mls/hr [id number] IV Last administered on 07/09/19at 02:17; Start 07/07/19 at 08:00; Stop 07/09/19 at 15 :23; Status DC Lorazepam (Ativan Inj) 1 mg PRN Q4HRS PRN IVP ANXIETY / AGITATION, 2nd choic Last administered on 08/05/19at 03:51; Start 07/07/19 at 09:00; Stop 08/05/19 at 09:19; Status DC Sodium Chloride 1,000 ml @ 1,000 mls/hr Q1H PRN IV hypotension; Start 07/07/19 at 08:56; Stop 07/07/19 at 14:55; Status DC Albumin Human 200 ml @ 200 mls/hr 1X PRN PRN IV Hypotension; Start 07/07/19 at 09:00; Stop 07/07/19 at 14:59; Status DC Diphenhydramine HCl (Benadryl) 25 mg 1X PRN PRN IV ITCHING; Start 07/07/19 at 09:00; Stop 07/08/19 at 08:59; Status DC Diphenhydramine HCl (Benadryl) 25 mg 1X PRN PRN IV ITCHING; Start 07/07/19 at 09:00; Stop 07/08/19 at 08:59; Status DC Sodium Chloride 1,000 ml @ 400 mls/hr Q2H30M PRN IV PATENCY; Start 07/07/19 at 08:56; Stop 07/07/19 at 20:55; Status DC Info (PHARMACY MONITORING -- do not chart) 1 each PRN DAILY PRN MC SEE COMMENTS; Start 07/07/19 at 09:00; Status UNV Info (PHARMACY MONITORING -- do not chart) 1 each PRN DAILY PRN MC SEE COMMENTS; Start 07/07/19 at 09:00; Stop 07/08/19 at 08:13; Status DC Digoxin (Lanoxin) 500 mcg 1X ONCE IV Last administered on 07/07/19at 10:04; Start 07/07/19 at 10:00; Stop 07/07/19 at 10:01; Status DC Digoxin (Lanoxin) 125 mcg 1X ONCE IV Last administered on 07/07/19at 17:10; Start 07/07/19 at 18:00; Stop 07/07/19 at 18:01; Status DC Magnesium Sulfate 100 ml @ 25 mls/hr 1X ONCE IV Last administered on 07/07/19at 12:48; Start 07/07/19 at 13:00; Stop 07/07/19 at 16:59; Status DC Sodium Chloride 90 meq/Magnesium Sulfate 10 meq/ Calcium Gluconate 20 meq/ Multivitamins 10 ml/Chromium/ Copper/Manganese/ Seleni/Zn 0.5 ml/ Total Parenteral Nutrition/Amino Acids/Dextrose/ Fat Emulsion Intravenous 1,512 ml @ 63 mls/hr TPN CONT IV Last administered on 07/07/19at 22:25; Start 07/07/19 at 22:00; Stop 07/08/19 at 21:59; Status DC Sodium Chloride 1,000 ml @ 1,000 mls/hr Q1H PRN IV hypotension; Start 07/08/19 at 08:05; Stop 07/08/19 at 14:04; Status DC Albumin Human 200 ml @ 200 mls/hr 1X ONCE IV Last administered on 07/08/19at 08:57; Start 07/08/19 at 08:15; Stop 07/08/19 at 09:14; Status DC Diphenhydramine HCl (Benadryl) 25 mg 1X PRN PRN IV ITCHING; Start 07/08/19 at 08:15; Stop 07/09/19 at 08:14; Status DC Diphenhydramine HCl (Benadryl) 25 mg 1X PRN PRN IV ITCHING; Start 07/08/19 at 08:15; Stop 07/09/19 at 08:14; Status DC Sodium Chloride 1,000 ml @ 400 mls/hr Q2H30M PRN IV PATENCY; Start 07/08/19 at 08:05; Stop 07/08/19 at 20:04; Status DC Info (PHARMACY MONITORING -- do not chart) 1 each PRN DAILY PRN MC SEE COMMENTS; Start 07/08/19 at 08:15; Stop 07/12/19 at 07:57; Status DC Sodium Chloride 90 meq/Potassium Chloride 15 meq/ Potassium Phosphate 10 mmol/ Magnesium Sulfate 10 meq/Calcium Gluconate 20 meq/ Multivitamins 10 ml/Chromium/ Copper/Manganese/ Seleni/Zn 0.5 ml/ Total Parenteral Nutrition/Amino Acids/Dextrose/ Fat Emulsion Intravenous 1,512 ml @ 63 mls/hr TPN CONT IV Last administered on 07/08/19at 21:01; Start 07/08/19 at 22:00; Stop 07/09/19 at 21:59; Status DC Potassium Chloride/Water 100 ml @ 100 mls/hr 1X ONCE IV Last administered on 07/08/19at 14:09; Start 07/08/19 at 14:00; Stop 07/08/19 at 14:59; Status DC Benzocaine (Hurricaine One) 1 spray 1X ONCE MM Last administered on 07/08/19at 16:38; Start 07/08/19 at 14:30; Stop 07/08/19 at 14:31; Status DC Lidocaine HCl (Glydo (Lidocaine) Jelly) 1 ramu 1X ONCE MM Last administered on 07/08/19at 16:38; Start 07/08/19 at 14:30; Stop 07/08/19 at 14:31; Status DC Linezolid/Dextrose 300 ml @ 300 mls/hr Q12HR IV Last administered on 07/14/19at 21:04; Start 07/08/19 at 20:00; Stop 07/15/19 at 07:50; Status DC Acetaminophen (Tylenol) 650 mg PRN Q6HRS PRN PO MILD PAIN / TEMP; Start 07/09/19 at 03:30; Stop 07/09/19 at 03:36; Status DC Acetaminophen (Tylenol) 650 mg PRN Q6HRS PRN PEG MILD PAIN / TEMP Last administered on 08/04/19at 19:56; Start 07/09/19 at 03:36; Stop 08/31/19 at 10:25; Status DC Sodium Chloride 1,000 ml @ 1,000 mls/hr Q1H PRN IV hypotension; Start 07/09/19 at 07:50; Stop 07/09/19 at 13:49; Status DC Albumin Human 200 ml @ 200 mls/hr 1X PRN PRN IV Hypotension; Start 07/09/19 at 08:00; Stop 07/09/19 at 13:59; Status DC Sodium Chloride (Normal Saline Flush) 10 ml 1X PRN PRN IV AP catheter pack; Start 07/09/19 at 08:00; Stop 07/10/19 at 07:59; Status DC Sodium Chloride (Normal Saline Flush) 10 ml 1X PRN PRN IV MERCHANDISING ASSISTANT catheter pack; Start 07/09/19 at 08:00; Stop 07/10/19 at 07:59; Status DC Sodium Chloride 1,000 ml @ 400 mls/hr Q2H30M PRN IV PATENCY; Start 07/09/19 at 07:50; Stop 07/09/19 at 19:49; Status DC Info (PHARMACY MONITORING -- do not chart) 1 each PRN DAILY PRN MC SEE COMMENTS; Start 07/09/19 at 08:00; Status UNV Info (PHARMACY MONITORING -- do not chart) 1 each PRN DAILY PRN MC SEE COMMENTS; Start 07/09/19 at 08:00; Stop 07/11/19 at 08:25; Status DC Sodium Chloride 90 meq/Potassium Chloride 15 meq/ Potassium Phosphate 10 mmol/ Magnesium Sulfate 10 meq/Calcium Gluconate 20 meq/ Multivitamins 10 ml/Chromium/ Copper/Manganese/ Seleni/Zn 0.5 ml/ Total Parenteral Nutrition/Amino Acids/Dextrose/ Fat Emulsion Intravenous 1,512 ml @ 63 mls/hr TPN CONT IV Last administered on 07/09/19at 20:57; Start 07/09/19 at 22:00; Stop 07/10/19 at 21:59; Status DC Sodium Chloride 90 meq/Potassium Chloride 15 meq/ Potassium Phosphate 15 mmol/ Magnesium Sulfate 10 meq/Calcium Gluconate 20 meq/ Multivitamins 10 ml/Chromium/ Copper/Manganese/ Seleni/Zn 0.5 ml/ Total Parenteral Nutrition/Amino Acids/Dextrose/ Fat Emulsion Intravenous 1,512 ml @ 63 mls/hr TPN CONT IV ; Start 07/10/19 at 22:00; Stop 07/10/19 at 14:16; Status DC Sodium Chloride 90 meq/Potassium Chloride 15 meq/ Potassium Phosphate 15 mmol/ Magnesium Sulfate 10 meq/Calcium Gluconate 20 meq/ Multivitamins 10 ml/Chromium/ Copper/Manganese/ Seleni/Zn 0.5 ml/ Total Parenteral Nutrition/Amino Acids/Dextrose/ Fat Emulsion Intravenous 1,200 ml @ 50 mls/hr TPN CONT IV ; Start 07/10/19 at 22:00; Stop 07/10/19 at 14:17; Status DC Sodium Chloride 90 meq/Potassium Chloride 15 meq/ Potassium Phosphate 10 mmol/ Magnesium Sulfate 10 meq/Calcium Gluconate 20 meq/ Multivitamins 10 ml/Chromium/ Copper/Manganese/ Seleni/Zn 0.5 ml/ Total Parenteral Nutrition/Amino Acids/Dextrose/ Fat Emulsion Intravenous 1,200 ml @ 50 mls/hr TPN CONT IV Last administered on 07/10/19at 23:29; Start 07/10/19 at 22:00; Stop 07/11/19 at 21:59; Status DC Sodium Chloride 1,000 ml @ 1,000 mls/hr Q1H PRN IV hypotension; Start 07/11/19 at 07:28; Stop 07/11/19 at 13:27; Status DC Albumin Human 200 ml @ 200 mls/hr 1X ONCE IV Last administered on 07/11/19at 08:51; Start 07/11/19 at 07:30; Stop 07/11/19 at 08:29; Status DC Diphenhydramine HCl (Benadryl) 25 mg 1X PRN PRN IV ITCHING; Start 07/11/19 at 07:30; Stop 07/12/19 at 07:29; Status DC Diphenhydramine HCl (Benadryl) 25 mg 1X PRN PRN IV ITCHING; Start 07/11/19 at 07:30; Stop 07/12/19 at 07:29; Status DC Sodium Chloride 1,000 ml @ 400 mls/hr Q2H30M PRN IV PATENCY; Start 07/11/19 at 07:28; Stop 07/11/19 at 19:27; Status DC Info (PHARMACY MONITORING -- do not chart) 1 each PRN DAILY PRN MC SEE COMMENTS; Start 07/11/19 at 07:30; Stop 07/22/19 at 13:01; Status DC Metronidazole 100 ml @ 100 mls/hr Q6HRS IV Last administered on 07/27/19at 06:26; Start 07/11/19 at 08:30; Stop 07/27/19 at 09:58; Status DC Micafungin Sodium 100 mg/Dextrose 100 ml @ 100 mls/hr Q24H IV Last administered on 08/18/19at 08:18; Start 07/11/19 at 09:00; Stop 08/18/19 at 20:58; Status DC Propofol 0 ml @ As Directed STK-MED ONCE IV ; Start 07/11/19 at 07:53; Stop 07/11/19 at 07:53; Status DC Etomidate (Amidate) 20 mg STK-MED ONCE IV ; Start 07/11/19 at 07:53; Stop 07/11/19 at 07:54; Status DC Midazolam HCl (Versed) 5 mg STK-MED ONCE .ROUTE ; Start 07/11/19 at 07:57; Stop 07/11/19 at 07:57; Status DC Fentanyl Citrate 30 ml @ 0 mls/hr CONT PRN IV SEE PROTOCOL Last administered on 08/05/19at 06:12; Start 07/11/19 at 08:15; Stop 08/05/19 at 09:19; Status DC Artificial Tears (Artificial Tears) 1 drop PRN Q1HR PRN OU DRY EYE, 1st choice; Start 07/11/19 at 08:15; Stop 08/17/19 at 05:31; Status DC Midazolam HCl 50 mg/Sodium Chloride 50 ml @ 0 mls/hr CONT PRN IV SEE PROTOCOL Last administered on 07/14/19at 22:39; Start 07/11/19 at 08:15; Stop 07/16/19 at 15:59; Status DC Etomidate (Amidate) 8 mg 1X ONCE IV Last administered on 07/11/19at 08:33; St art 07/11/19 at 08:30; Stop 07/11/19 at 08:31; Status DC Succinylcholine Chloride (Anectine) 120 mg 1X ONCE IV Last administered on 07/11/19at 08:34; Start 07/11/19 at 08:30; Stop 07/11/19 at 08:31; Status DC Midazolam HCl (Versed) 5 mg 1X ONCE IV ; Start 07/11/19 at 08:30; Stop 07/11/19 at 08:31; Status DC Potassium Chloride 15 meq/ Bicarbonate Dialysis Soln w/ out KCl 5,007.5 ml @ 1,000 mls/ hr Q5H1M IV Last administered on 07/12/19at 11:11; Start 07/11/19 at 12:00; Stop 07/12/19 at 11:15; Status DC Potassium Chloride 15 meq/ Bicarbonate Dialysis Soln w/ out KCl 5,007.5 ml @ 1,000 mls/ hr Q5H1M IV Last administered on 07/12/19at 11:12; Start 07/11/19 at 12:00; Stop 07/12/19 at 11:17; Status DC Potassium Chloride 15 meq/ Bicarbonate Dialysis Soln w/ out KCl 5,007.5 ml @ 1,000 mls/ hr Q5H1M IV Last administered on 07/12/19at 11:11; Start 07/11/19 at 12:00; Stop 07/12/19 at 11:19; Status DC Sodium Chloride 90 meq/Potassium Chloride 15 meq/ Potassium Phosphate 10 mmol/ Magnesium Sulfate 10 meq/Calcium Gluconate 20 meq/ Multivitamins 10 ml/Chromium/ Copper/Manganese/ Seleni/Zn 0.5 ml/ Total Parenteral Nutrition/Amino Acids/Dext amarilis/ Fat Emulsion Intravenous 1,400 ml @ 58.333 mls/ hr TPN CONT IV Last administered on 07/11/19at 21:42; Start 07/11/19 at 22:00; Stop 07/12/19 at 21:59; Status DC Heparin Sodium (Porcine) (Heparin Sodium) 5,000 unit Q8HRS SQ Last administered on 07/16/19at 05:55; Start 07/11/19 at 15:00; Stop 07/16/19 at 13:28; Status DC Meropenem 500 mg/ Sodium Chloride 50 ml @ 100 mls/hr Q6HRS IV Last administered on 07/13/19at 06:00; Start 07/12/19 at 09:00; Stop 07/13/19 at 07:29; Status DC Potassium Phosphate 20 mmol/ Sodium Chloride 106.6667 ml @ 51.667 m... 1X ONCE IV Last administered on 07/12/19at 11:22; Start 07/12/19 at 10:15; Stop 07/12/19 at 12:18; Status DC Acetaminophen (Tylenol Supp) 650 mg PRN Q6HRS PRN CO MILD PAIN / TEMP > 100.3'F Last administered on 11/12/19at 19:52; Start 07/12/19 at 10:30 Potassium Chloride/Water 100 ml @ 100 mls/hr Q1H IV Last administered on at 12:12; Start 07/12/19 at 11:00; Stop 07/12/19 at 12:59; Status DC Potassium Chloride 20 meq/ Bicarbonate Dialysis Soln w/ out KCl 5,010 ml @ 1,000 mls/hr Q5H1M IV Last administered on 07/13/19at 08:48; Start 07/12/19 at 12:00; Stop 07/13/19 at 13:03; Status DC Potassium Chloride 20 meq/ Bicarbonate Dialysis Soln w/ out KCl 5,010 ml @ 1,000 mls/hr Q5H1M IV Last administered on 07/17/19at 14:52; Start 07/12/19 at 11:30; Stop 07/17/19 at 19:59; Status DC Potassium Chloride 20 meq/ Bicarbonate Dialysis Soln w/ out KCl 5,010 ml @ 1,000 mls/hr Q5H1M IV Last administered on 07/17/19at 14:53; Start 07/12/19 at 11:30; Stop 07/17/19 at 19:59; Status DC Sodium Chloride 90 meq/Potassium Chloride 15 meq/ Potassium Phosphate 15 mmol/ Magnesium Sulfate 10 meq/Calcium Gluconate 15 meq/ Multivitamins 10 ml/Chromium/ Copper/Manganese/ Seleni/Zn 0.5 ml/ Total Parenteral Nutrition/Amino A cids/Dextrose/ Fat Emulsion Intravenous 1,400 ml @ 58.333 mls/ hr TPN CONT IV Last administered on 07/12/19at 22:17; Start 07/12/19 at 22:00; Stop 07/13/19 at 21:59; Status DC Cefepime HCl (Maxipime) 2 gm Q12HR IVP Last administered on 07/26/19at 20:56; Start 07/13/19 at 09:00; Stop 07/27/19 at 09:58; Status DC Daptomycin 500 mg/ Sodium Chloride 50 ml @ 100 mls/hr Q48H IV Last administered on 07/29/19at 09:57; Start 07/13/19 at 08:30; Stop 07/29/19 at 10:07; Status DC Lidocaine HCl (Buffered Lidocaine 1%) 3 ml 1X ONCE INJ Last administered on 07/13/19at 10:27; Start 07/13/19 at 10:30; Stop 07/13/19 at 10:31; Status DC Potassium Phosphate 20 mmol/ Sodium Chloride 106.6667 ml @ 51.667 m... 1X ONCE IV Last administered on 07/13/19at 12:51; Start 07/13/19 at 13:00; Stop 07/13/19 at 15:03; Status DC Sodium Chloride 90 meq/Potassium Chloride 15 meq/ Potassium Phosphate 18 mmol/ Magnesium Sulfate 8 meq/Calcium Gluconate 15 meq/ Multivitamins 10 ml/Chromium/ Copper/Manganese/ Seleni/Zn 0.5 ml/ Total Parenteral Nutrition/Amino Acids/Dextrose/ Fat Emulsion Intravenous 1,400 ml @ 58.333 mls/ hr TPN CONT IV Last administered on 07/13/19at 22:16; Start 07/13/19 at 22:00; Stop 07/14/19 at 21:59; Status DC Potassium Chloride 20 meq/ Bicarbonate Dialysis Soln w/ out KCl 5,010 ml @ 1,000 mls/hr Q5H1M IV Last administered on 07/17/19at 14:54; Start 07/13/19 at 16:00; Stop 07/17/19 at 19:59; Status DC Multi-Ingred Cream/Lotion/Oil/ Oint (Artificial Tears Eye Ointment) 1 ramu PRN Q1HR PRN OU DRY EYE, 2nd choice Last administered on 08/01/19at 08:19; Start 07/13/19 at 17:30; Stop 09/21/19 at 14:39; Status DC Sodium Chloride 90 meq/Potassium Chloride 15 meq/ Potassium Phosphate 18 mmol/ Magnesium Sulfate 8 meq/Calcium Gluconate 15 meq/ Multivitamins 10 ml/Chromium/ Copper/Manganese/ Seleni/Zn 0.5 ml/ Total Parenteral Nutrition/Amino Acids/Dextrose/ Fat Emulsion Intravenous 1,400 ml @ 58.333 mls/ hr TPN CONT IV Last administered on 07/14/19at 22:00; Start 07/14/19 at 22:00; Stop 07/15/19 at 21:59; Status DC Albumin Human 500 ml @ 125 mls/hr 1X ONCE IV ; Start 07/14/19 at 14:15; Stop 07/14/19 at 18:14; Status DC Sodium Chloride 90 meq/Potassium Chloride 15 meq/ Potassium Phosphate 18 mmol/ Magnesium Sulfate 8 meq/Calcium Gluconate 15 meq/ Multivitamins 10 ml/Chromium/ Copper/Manganese/ Seleni/Zn 0.5 ml/ Insulin Human Regular 10 unit/ Total Parenteral Nutrition/Amino Acids/Dextrose/ Fat Emulsion Intravenous 1,400 ml @ 58.333 mls/ hr TPN CONT IV Last administered on 07/15/19at 21:43; Start 07/15/19 at 22:00; Stop 07/16/19 at 21:59; Status DC Lidocaine HCl (Buffered Lidocaine 1%) 3 ml STK-MED ONCE .ROUTE ; Start 07/13/19 at 10:00; Stop 07/15/19 at 13:57; Status DC Midazolam HCl 100 mg/Sodium Chloride 100 ml @ 7 mls/hr CONT PRN IV SEE PROTOCOL Last administered on 07/27/19at 15:35; Start 07/16/19 at 16:00; Stop 09/21/19 at 14:38; Status DC Sodium Chloride 90 meq/Potassium Chloride 15 meq/ Potassium Phosphate 18 mmol/ Magnesium Sulfate 8 meq/Calcium Gluconate 15 meq/ Multivitamins 10 ml/Chromium/ Copper/Manganese/ Seleni/Zn 0.5 ml/ Insulin Human Regular 15 unit/ Total Parenteral Nutrition/Amino Acids/Dextrose/ Fat Emulsion Intravenous 1,400 ml @ 58.333 mls/ hr TPN CONT IV Last administered on 07/16/19at 20:34; Start 07/16/19 at 22:00; Stop 07/17/19 at 21:59; Status DC Info (Icu Electrolyte Protocol) 1 ea CONT PRN PRN MC PER PROTOCOL; Start 07/17/19 at 13:15 Sodium Chloride 90 meq/Potassium Chloride 15 meq/ Potassium Phosphate 18 mmol/ Magnesium Sulfate 8 meq/Calcium Gluconate 15 meq/ Multivitamins 10 ml/Chromium/ Copper/Manganese/ Seleni/Zn 0.5 ml/ Insulin Human Regular 15 unit/ Total Parenteral Nutrition/Amino Acids/Dextrose/ Fat Emulsion Intravenous 1,400 ml @ 58.333 mls/ hr TPN CONT IV Last administered on 07/17/19at 22:05; Start 07/17/19 at 22:00; Stop 07/18/19 at 21:59; Status DC Potassium Chloride 15 meq/ Bicarbonate Dialysis Soln w/ out KCl 5,007.5 ml @ 1,000 mls/ hr Q5H1M IV Last administered on 07/20/19at 18:14; Start 07/17/19 at 20:00; Stop 07/21/19 at 13:08; Status DC Potassium Chloride 15 meq/ Bicarbonate Dialysis Soln w/ out KCl 5,007.5 ml @ 1,000 mls/ hr Q5H1M IV Last administered on 07/20/19at 18:14; Start 07/17/19 at 20:00; Stop 07/21/19 at 13:08; Status DC Potassium Chloride 15 meq/ Bicarbonate Dialysis Soln w/ out KCl 5,007.5 ml @ 1,000 mls/ hr Q5H1M IV Last administered on 07/20/19at 18:14; Start 07/17/19 at 20:00; Stop 07/21/19 at 13:08; Status DC Iohexol (Omnipaque 240 Mg/ml) 30 ml 1X ONCE PO Last administered on 07/18/19at 11:30; Start 07/18/19 at 11:30; Stop 07/18/19 at 11:33; Status DC Info (CONTRAST GIVEN -- Rx MONITORING) 1 each PRN DAILY PRN MC SEE COMMENTS; Start 07/18/19 at 11:45; Stop 07/20/19 at 11:44; Status DC Sodium Chloride 90 meq/Potassium Chloride 15 meq/ Potassium Phosphate 18 mmol/ Magnesium Sulfate 8 meq/Calcium Gluconate 15 meq/ Multivitamins 10 ml/Chromium/ Copper/Manganese/ Seleni/Zn 0.5 ml/ Insulin Human Regular 15 unit/ Total Parenteral Nutrition/Amino Acids/Dextrose/ Fat Emulsion Intravenous 1,400 ml @ 58.333 mls/ hr TPN CONT IV Last administered on 07/18/19at 21:47; Start 07/18/19 at 22:00; Stop 07/19/19 at 21:59; Status DC Sodium Chloride 90 meq/Potassium Chloride 15 meq/ Potassium Phosphate 18 mmol/ Magnesium Sulfate 8 meq/Calcium Gluconate 15 meq/ Multivitamins 10 ml/Chromium/ Copper/Manganese/ Seleni/Zn 0.5 ml/ Insulin Human Regular 20 unit/ Total Parenteral Nutrition/Amino Acids/Dextrose/ Fat Emulsion Intravenous 1,400 ml @ 58.333 mls/ hr TPN CONT IV Last administered on 07/19/19at 21:36; Start 07/19/19 at 22:00; Stop 07/20/19 at 21:59; Status DC Alteplase, Recombinant (Cathflo For Central Catheter Clearance) 1 mg 1X ONCE INT CAT Last administered on 07/19/19at 20:03; Start 07/19/19 at 19:30; Stop 07/19/19 at 19:46; Status DC Alteplase, Recombinant (Cathflo For Central Catheter Clearance) 1 mg 1X ONCE INT CAT Last administered on 07/19/19at 22:05; Start 07/19/19 at 22:00; Stop 07/19/19 at 22:01; Status DC Sodium Chloride 90 meq/Potassium Chloride 15 meq/ Potassium Phosphate 18 mmol/ Magnesium Sulfate 8 meq/Calcium Gluconate 15 meq/ Multivitamins 10 ml/Chromium/ Copper/Manganese/ Seleni/Zn 0.5 ml/ Insulin Human Regular 20 unit/ Total Parenteral Nutrition/Amino Acids/Dextrose/ Fat Emulsion Intravenous 1,400 ml @ 58.333 mls/ hr TPN CONT IV Last administered on 07/20/19at 21:30; Start 07/20/19 at 22:00; Stop 07/21/19 at 21:59; Status DC Dexmedetomidine HCl 400 mcg/ Sodium Chloride 100 ml @ 0 mls/hr CONT PRN IV ANXIETY / AGITATION Last administered on 09/17/19at 12:57; Start 07/21/19 at 08:15; Stop 09/17/19 at 18:31; Status DC Sodium Chloride 500 ml @ 500 mls/hr 1X PRN PRN IV ELEVATED BP, SEE COMMENTS; Start 07/21/19 at 08:15 Atropine Sulfate (ATROPINE 0.5mg SYRINGE) 0.5 mg PRN Q5MIN PRN IV SEE COMMENTS; Start 07/21/19 at 08:15 Furosemide (Lasix) 20 mg 1X ONCE IVP Last administered on 07/21/19at 08:19; Start 07/21/19 at 08:15; Stop 07/21/19 at 08:16; Status DC Lidocaine HCl (Buffered Lidocaine 1%) 3 ml STK-MED ONCE .ROUTE ; Start 07/21/19 at 08:39; Stop 07/21/19 at 08:39; Status DC Lidocaine HCl (Buffered Lidocaine 1%) 6 ml 1X ONCE INJ Last administered on 07/21/19at 09:05; Start 07/21/19 at 09:00; Stop 07/21/19 at 09:06; Status DC Sodium Chloride 90 meq/Potassium Chloride 15 meq/ Potassium Phosphate 18 mmol/ Magnesium Sulfate 8 meq/Calcium Gluconate 15 meq/ Multivitamins 10 ml/Chromium/ Copper/Manganese/ Seleni/Zn 0.5 ml/ Insulin Human Regular 20 unit/ Total Parenteral Nutrition/Amino Acids/Dextrose/ Fat Emulsion Intravenous 1,400 ml @ 58.333 mls/ hr TPN CONT IV Last administered on 07/21/19at 22:45; Start 07/21/19 at 22:00; Stop 07/22/19 at 21:59; Status DC Sodium Chloride 1,000 ml @ 1,000 mls/hr Q1H PRN IV hypotension; Start 07/22/19 at 07:30; Stop 07/22/19 at 13:29; Status DC Albumin Human 200 ml @ 200 mls/hr 1X PRN PRN IV Hypotension Last administered on 07/22/19at 09:36; Start 07/22/19 at 07:30; Stop 07/22/19 at 13:29; Status DC Sodium Chloride (Normal Saline Flush) 10 ml 1X PRN PRN IV AP catheter pack; Start 07/22/19 at 07:30; Stop 07/22/19 at 21:29; Status DC Sodium Chloride (Normal Saline Flush) 10 ml 1X PRN PRN IV MERCHANDISING ASSISTANT catheter pack; Start 07/22/19 at 07:30; Stop 07/23/19 at 07:29; Status DC Sodium Chloride 1,000 ml @ 400 mls/hr Q2H30M PRN IV PATENCY; Start 07/22/19 at 07:30; Stop 07/22/19 at 19:29; Status DC Info (PHARMACY MONITORING -- do not chart) 1 each PRN DAILY PRN MC SEE COMMENTS; Start 07/22/19 at 07:30; Stop 07/22/19 at 13:02; Status DC Info (PHARMACY MONITORING -- do not chart) 1 each PRN DAILY PRN MC SEE COMMENTS; Start 07/22/19 at 07:30; Stop 07/24/19 at 12:45; Status DC Sodium Chloride 90 meq/Potassium Chloride 15 meq/ Potassium Phosphate 10 mmol/ Magnesium Sulfate 8 meq/Calcium Gluconate 15 meq/ Multivitamins 10 ml/Chromium/ Copper/Manganese/ Seleni/Zn 0.5 ml/ Insulin Human Regular 25 unit/ Total Parenteral Nutrition/Amino Acids/Dextrose/ Fat Emulsion Intravenous 1,400 ml @ 58.333 mls/ hr TPN CONT IV Last administered on 07/22/19at 22:19; Start 07/22/19 at 22:00; Stop 07/23/19 at 21:59; Status DC Heparin Sodium (Porcine) (Heparin Sodium) 5,000 unit Q12HR SQ Last administered on 08/14/19at 08:59; Start 07/22/19 at 21:00; Stop 08/14/19 at 10:05; Status DC Ondansetron HCl (Zofran) 4 mg PRN Q6HRS PRN IV NAUSEA/VOMITING; Start 07/25/19 at 07:00; Stop 07/26/19 at 06:59; Status DC Fentanyl Citrate (Fentanyl 2ml Vial) 25 mcg PRN Q5MIN PRN IV MILD PAIN 1-3; Start 07/25/19 at 07:00; Stop 07/26/19 at 06:59; Status DC Fentanyl Citrate (Fentanyl 2ml Vial) 50 mcg PRN Q5MIN PRN IV MODERATE TO SEVERE PAIN; Start 07/25/19 at 07:00; Stop 07/26/19 at 06:59; Status DC Ringer's Solution 1,000 ml @ 30 mls/hr Q24H IV ; Start 07/25/19 at 07:00; Stop 07/25/19 at 18:59; Status DC Lidocaine HCl (Xylocaine-Mpf 1% 2ml Vial) 2 ml PRN 1X PRN ID PRIOR TO IV START; Start 07/25/19 at 07:00; Stop 07/26/19 at 06:59; Status DC Prochlorperazine Edisylate (Compazine) 5 mg PACU PRN PRN IV NAUSEA, MRX1; Start 07/25/19 at 07:00; Stop 07/26/19 at 06:59; Status DC Sodium Chloride 1,000 ml @ 1,000 mls/hr Q1H PRN IV hypotension; Start 07/23/19 at 09:10; Stop 07/23/19 at 15:09; Status DC Albumin Human 200 ml @ 200 mls/hr 1X PRN PRN IV Hypotension Last administered on 07/23/19at 10:10; Start 07/23/19 at 09:15; Stop 07/23/19 at 15:14; Status DC Sodium Chloride 1,000 ml @ 400 mls/hr Q2H30M PRN IV PATENCY; Start 07/23/19 at 09:10; Stop 07/23/19 at 21:09; Status DC Info (PHARMACY MONITORING -- do not chart) 1 each PRN DAILY PRN MC SEE COMMENTS; Start 07/23/19 at 09:15; Stop 07/24/19 at 12:45; Status DC Info (PHARMACY MONITORING -- do not chart) 1 each PRN DAILY PRN MC SEE COMMENTS; Start 07/23/19 at 09:15; Stop 07/24/19 at 12:45; Status DC Sodium Chloride 90 meq/Potassium Chloride 15 meq/ Potassium Phosphate 10 mmol/ Magnesium Sulfate 8 meq/Calcium Gluconate 15 meq/ Multivitamins 10 ml/Chromium/ Copper/Manganese/ Seleni/Zn 0.5 ml/ Insulin Human Regular 25 unit/ Total Parenteral Nutrition/Amino Acids/Dextrose/ Fat Emulsion Intravenous 1,400 ml @ 58.333 mls/ hr TPN CONT IV Last administered on 07/23/19at 22:10; Start 07/23/19 at 22:00; Stop 07/24/19 at 21:59; Status DC Magnesium Sulfate 50 ml @ 25 mls/hr PRN DAILY PRN IV for Mag < 1.7 on am labs Last administered on 10/06/19at 10:57; Start 07/24/19 at 09:15 Sodium Chloride 90 meq/Potassium Chloride 15 meq/ Potassium Phosphate 10 mmol/ Magnesium Sulfate 8 meq/Calcium Gluconate 15 meq/ Multivitamins 10 ml/Chromium/ Copper/Manganese/ Seleni/Zn 0.5 ml/ Insulin Human Regular 25 unit/ Total Parenteral Nutrition/Amino Acids/Dextrose/ Fat Emulsion Intravenous 1,400 ml @ 58.333 mls/ hr TPN CONT IV Last administered on 07/24/19at 21:20; Start 07/24/19 at 22:00; Stop 07/25/19 at 21:59; Status DC Sodium Chloride 1,000 ml @ 1,000 mls/hr Q1H PRN IV hypotension; Start 07/24/19 at 12:23; Stop 07/24/19 at 18:22; Status DC Albumin Human 200 ml @ 200 mls/hr 1X ONCE IV Last administered on 07/24/19at 13:34; Start 07/24/19 at 12:30; Stop 07/24/19 at 13:29; Status DC Diphenhydramine HCl (Benadryl) 25 mg 1X PRN PRN IV ITCHING; Start 07/24/19 at 12:30; Stop 07/25/19 at 12:29; Status DC Diphenhydramine HCl (Benadryl) 25 mg 1X PRN PRN IV ITCHING; Start 07/24/19 at 12:30; Stop 07/25/19 at 12:29; Status DC Info (PHARMACY MONITORING -- do not chart) 1 each PRN DAILY PRN MC SEE COMMENTS; Start 07/24/19 at 12:30; Status Cancel Bupivacaine HCl/ Epinephrine Bitart (Sensorcain-Epi 0.5%-1:325394 Mpf) 30 ml STK-MED ONCE .ROUTE Last administered on 07/25/19at 11:44; Start 07/25/19 at 11:00; Stop 07/25/19 at 11:01; Status DC Cellulose (Surgicel Fibrillar 1x2) 1 each STK-MED ONCE .ROUTE ; Start 07/25/19 at 11:00; Stop 07/25/19 at 11:01; Status DC Sodium Chloride 90 meq/Potassium Chloride 15 meq/ Potassium Phosphate 10 mmol/ Magnesium Sulfate 12 meq/Calcium Gluconate 15 meq/ Multivitamins 10 ml/Chromium/ Copper/Manganese/ Seleni/Zn 0.5 ml/ Insulin Human Regular 25 unit/ Total Parenteral Nutrition/Amino Acids/Dextrose/ Fat Emulsion Intravenous 1,400 ml @ 58.333 mls/ hr TPN CONT IV Last administered on 07/25/19at 22:24; Start 07/25/19 at 22:00; Stop 07/26/19 at 21:59; Status DC Propofol 20 ml @ As Directed STK-MED ONCE IV ; Start 07/25/19 at 11:07; Stop 07/25/19 at 11:07; Status DC Cellulose (Surgicel Hemostat 4x8) 1 each STK-MED ONCE .ROUTE Last administered on 07/25/19at 11:44; Start 07/25/19 at 11:55; Stop 07/25/19 at 11:56; Status DC Sevoflurane (Ultane) 60 ml STK-MED ONCE IH ; Start 07/25/19 at 12:46; Stop 07/25/19 at 12:46; Status DC Sodium Chloride 1,000 ml @ 1,000 mls/hr Q1H PRN IV hypotension; Start 07/25/19 at 13:51; Stop 07/25/19 at 19:50; Status DC Albumin Human 200 ml @ 200 mls/hr 1X PRN PRN IV Hypotension Last administered on 07/25/19at 14:51; Start 07/25/19 at 14:00; Stop 07/25/19 at 19:59; Status DC Diphenhydramine HCl (Benadryl) 25 mg 1X PRN PRN IV ITCHING; Start 07/25/19 at 14:00; Stop 07/26/19 at 13:59; Status DC Diphenhydramine HCl (Benadryl) 25 mg 1X PRN PRN IV ITCHING; Start 07/25/19 at 14:00; Stop 07/26/19 at 13:59; Status DC Sodium Chloride 1,000 ml @ 400 mls/hr Q2H30M PRN IV PATENCY; Start 07/25/19 at 13:51; Stop 07/26/19 at 01:50; Status DC Info (PHARMACY MONITORING -- do not chart) 1 each PRN DAILY PRN MC SEE COMMENTS; Start 07/25/19 at 14:00; Stop 07/28/19 at 08:16; Status DC Heparin Sodium (Porcine) (Hep Lock Adult) 500 unit STK-MED ONCE IVP ; Start 07/26/19 at 09:29; Stop 07/26/19 at 09:30; Status DC Sodium Chloride 1,000 ml @ 1,000 mls/hr Q1H PRN IV hypotension; Start 07/26/19 at 10:43; Stop 07/26/19 at 16:42; Status DC Sodium Chloride 1,000 ml @ 400 mls/hr Q2H30M PRN IV PATENCY; Start 07/26/19 at 10:43; Stop 07/26/19 at 22:42; Status DC Info (PHARMACY MONITORING -- do not chart) 1 each PRN DAILY PRN MC SEE COMMENTS; Start 07/26/19 at 10:45; Status UNV Info (PHARMACY MONITORING -- do not chart) 1 each PRN DAILY PRN MC SEE COMMENTS; Start 07/26/19 at 10:45; Status UNV Sodium Chloride 90 meq/Potassium Chloride 15 meq/ Magnesium Sulfate 12 meq/Calcium Gluconate 15 meq/ Multivitamins 10 ml/Chromium/ Copper/Manganese/ Seleni/Zn 0.5 ml/ Insulin Human Regular 25 unit/ Total Parenteral Nutrition/Amino Acids/Dextrose/ Fat Emulsion Intravenous 1,400 ml @ 58.333 mls/ hr TPN CONT IV Last administered on 07/26/19at 22:13; Start 07/26/19 at 22:00; Stop 07/27/19 at 21:59; Status DC Sodium Chloride 1,000 ml @ 1,000 mls/hr Q1H PRN IV hypotension; Start 07/27/19 at 07:50; Stop 07/27/19 at 13:49; Status DC Albumin Human 200 ml @ 200 mls/hr 1X ONCE IV ; Start 07/27/19 at 08:00; Stop 07/27/19 at 08:53; Status DC Diphenhydramine HCl (Benadryl) 25 mg 1X PRN PRN IV ITCHING; Start 07/27/19 at 08:00; Stop 07/28/19 at 07:59; Status DC Diphenhydramine HCl (Benadryl) 25 mg 1X PRN PRN IV ITCHING; Start 07/27/19 at 08:00; Stop 07/28/19 at 07:59; Status DC Info (PHARMACY MONITORING -- do not chart) 1 each PRN DAILY PRN MC SEE COMMENTS; Start 07/27/19 at 08:00; Stop 07/28/19 at 08:16; Status DC Albumin Human 50 ml @ 50 mls/hr 1X ONCE IV ; Start 07/27/19 at 08:53; Stop 07/27/19 at 08:56; Status DC Albumin Human 200 ml @ 50 mls/hr PRN 1X PRN IV HYPOTENSION Last administered on 08/02/19at 11:54; Start 07/27/19 at 09:00; Stop 09/08/19 at 11:14; Status DC Meropenem 500 mg/ Sodium Chloride 50 ml @ 100 mls/hr Q12H IV Last administered on 08/16/19at 10:45; Start 07/27/19 at 10:00; Stop 08/16/19 at 12:37; Status DC Sodium Chloride 90 meq/Magnesium Sulfate 12 meq/ Calcium Gluconate 15 meq/ Multivitamins 10 ml/Chromium/ Copper/Manganese/ Seleni/Zn 0.5 ml/ Insulin Human Regular 25 unit/ Total Parenteral Nutrition/Amino Acids/Dextrose/ Fat Emulsion Intravenous 1,400 ml @ 58.333 mls/ hr TPN CONT IV Last administered on 07/27/19at 21:41; Start 07/27/19 at 22:00; Stop 07/28/19 at 21:59; Status DC Sodium Chloride 1,000 ml @ 1,000 mls/hr Q1H PRN IV hypotension; Start 07/28/19 at 07:58; Stop 07/28/19 at 13:57; Status DC Albumin Human 200 ml @ 200 mls/hr 1X PRN PRN IV Hypotension Last administered on 07/28/19at 09:30; Start 07/28/19 at 08:00; Stop 07/28/19 at 13:59; Status DC Sodium Chloride 1,000 ml @ 400 mls/hr Q2H30M PRN IV PATENCY; Start 07/28/19 at 07:58; Stop 07/28/19 at 19:57; Status DC Info (PHARMACY MONITORING -- do not chart) 1 each PRN DAILY PRN MC SEE COMMENTS; Start 07/28/19 at 08:00; Status Cancel Info (PHARMACY MONITORING -- do not chart) 1 each PRN DAILY PRN MC SEE COMMENTS; Start 07/28/19 at 08:15; Status UNV Sodium Chloride 90 meq/Potassium Phosphate 5 mmol/ Magnesium Sulfate 12 meq/Calcium Gluconate 15 meq/ Multivitamins 10 ml/Chromium/ Copper/Manganese/ Seleni/Zn 0.5 ml/ Insulin Human Regular 30 unit/ Total Parenteral Nutrition/Amino Acids/Dextrose/ Fat Emulsion Intravenous 1,400 ml @ 58.333 mls/ hr TPN CONT IV Last administered on 07/28/19at 22:08; Start 07/28/19 at 22:00; Stop 07/29/19 at 21:59; Status DC Linezolid/Dextrose 300 ml @ 300 mls/hr Q12HR IV Last administered on 08/08/19at 20:40; Start 07/29/19 at 11:00; Stop 08/09/19 at 08:10; Status DC Sodium Chloride 90 meq/Potassium Phosphate 15 mmol/ Magnesium Sulfate 12 meq/Calcium Gluconate 15 meq/ Multivitamins 10 ml/Chromium/ Copper/Manganese/ Seleni/Zn 0.5 ml/ Insulin Human Regular 30 unit/ Total Parenteral Nutri tion/Amino Acids/Dextrose/ Fat Emulsion Intravenous 1,400 ml @ 58.333 mls/ hr TPN CONT IV Last administered on 07/29/19at 21:49; Start 07/29/19 at 22:00; Stop 07/30/19 at 21:59; Status DC Sodium Chloride 90 meq/Potassium Phosphate 15 mmol/ Magnesium Sulfate 12 meq/Calcium Gluconate 15 meq/ Multivitamins 10 ml/Chromium/ Copper/Manganese/ Seleni/Zn 0.5 ml/ Insulin Human Regular 40 unit/ Total Parenteral Nutrition/Amino Acids/Dextrose/ Fat Emulsion Intravenous 1,400 ml @ 58.333 mls/ hr TPN CONT IV Last administered on 07/30/19at 21:21; Start 07/30/19 at 22:00; Stop 07/31/19 at 21:59; Status DC Sodium Chloride 1,000 ml @ 1,000 mls/hr Q1H PRN IV hypotension; Start 07/30/19 at 13:26; Stop 07/30/19 at 19:25; Status DC Albumin Human 200 ml @ 200 mls/hr 1X PRN PRN IV Hypotension Last administered on 07/30/19at 15:00; Start 07/30/19 at 13:30; Stop 07/30/19 at 19:29; Status DC Sodium Chloride (Normal Saline Flush) 10 ml 1X PRN PRN IV AP catheter pack; Start 07/30/19 at 13:30; Stop 07/31/19 at 13:29; Status DC Sodium Chloride (Normal Saline Flush) 10 ml 1X PRN PRN IV MERCHANDISING ASSISTANT catheter pack; Start 07/30/19 at 13:30; Stop 07/31/19 at 13:29; Status DC Sodium Chloride 1,000 ml @ 400 mls/hr Q2H30M PRN IV PATENCY; Start 07/30/19 at 13:26; Stop 07/31/19 at 01:25; Status DC Info (PHARMACY MONITORING -- do not chart) 1 each PRN DAILY PRN MC SEE COMMENTS; Start 07/30/19 at 13:30; Stop 07/30/19 at 13:33; Status DC Info (PHARMACY MONITORING -- do not chart) 1 each PRN DAILY PRN MC SEE COMMENTS; Start 07/30/19 at 13:30; Stop 07/30/19 at 13:34; Status DC Sodium Chloride 90 meq/Potassium Phosphate 19 mmol/ Magnesium Sulfate 12 meq/Calcium Gluconate 15 meq/ Multivitamins 10 ml/Chromium/ Copper/Manganese/ Seleni/Zn 0.5 ml/ Insulin Human Regular 40 unit/ Total Parenteral Nutrit ion/Amino Acids/Dextrose/ Fat Emulsion Intravenous 1,400 ml @ 58.333 mls/ hr TPN CONT IV Last administered on 07/31/19at 21:54; Start 07/31/19 at 22:00; Stop 08/01/19 at 21:59; Status DC Sodium Chloride 1,000 ml @ 1,000 mls/hr Q1H PRN IV hypotension; Start 08/01/19 at 09:35; Stop 08/01/19 at 15:34; Status DC Albumin Human 200 ml @ 200 mls/hr 1X PRN PRN IV Hypotension; Start 08/01/19 at 09:45; Stop 08/01/19 at 15:44; Status DC Diphenhydramine HCl (Benadryl) 25 mg 1X PRN PRN IV ITCHING; Start 08/01/19 at 09:45; Stop 08/02/19 at 09:44; Status DC Diphenhydramine HCl (Benadryl) 25 mg 1X PRN PRN IV ITCHING; Start 08/01/19 at 09:45; Stop 08/02/19 at 09:44; Status DC Sodium Chloride 1,000 ml @ 400 mls/hr Q2H30M PRN IV PATENCY; Start 08/01/19 at 09:35; Stop 08/01/19 at 21:34; Status DC Info (PHARMACY MONITORING -- do not chart) 1 each PRN DAILY PRN MC SEE COMMENTS; Start 08/01/19 at 09:45; Status Cancel Sodium Chloride 100 meq/Potassium Phosphate 19 mmol/ Magnesium Sulfate 12 meq/Calcium Gluconate 15 meq/ Multivitamins 10 ml/Chromium/ Copper/Manganese/ Seleni/Zn 0.5 ml/ Insulin Human Regular 40 unit/ Potassium Chloride 20 meq/ Total Parenteral Nutrition/Amino Acids/Dextrose/ Fat Emulsion Intravenous 1,400 ml @ 58.333 mls/ hr TPN CONT IV Last administered on 08/01/19at 22:02; Start 08/01/19 at 22:00; Stop 08/02/19 at 21:59; Status DC Furosemide (Lasix) 40 mg 1X ONCE IVP Last administered on 08/01/19at 14:39; Start 08/01/19 at 14:30; Stop 08/01/19 at 14:31; Status DC Metronidazole 100 ml @ 100 mls/hr Q8HRS IV Last administered on 08/09/19at 06:04; Start 08/02/19 at 10:00; Stop 08/09/19 at 08:10; Status DC Sodium Chloride 1,000 ml @ 1,000 mls/hr Q1H PRN IV hypotension; Start 08/02/19 at 08:00; Stop 08/02/19 at 13:59; Status DC Albumin Human 200 ml @ 200 mls/hr 1X PRN PRN IV Hypotension; Start 08/02/19 at 08:00; Stop 08/02/19 at 13:59; Status DC Sodium Chloride 1,000 ml @ 400 mls/hr Q2H30M PRN IV PATENCY; Start 08/02/19 at 08:00; Stop 08/02/19 at 19:59; Status DC Info (PHARMACY MONITORING -- do not chart) 1 each PRN DAILY PRN MC SEE COMMENTS; Start 08/02/19 at 11:30; Status UNV Info (PHARMACY MONITORING -- do not chart) 1 each PRN DAILY PRN MC SEE COMMENTS; Start 08/02/19 at 11:30; Stop 08/04/19 at 12:13; Status DC Sodium Chloride 100 meq/Potassium Phosphate 19 mmol/ Magnesium Sulfate 12 meq/Calcium Gluconate 15 meq/ Multivitamins 10 ml/Chromium/ Copper/Manganese/ Seleni/Zn 0.5 ml/ Insulin Human Regular 40 unit/ Potassium Chloride 20 meq/ Total Parenteral Nutrition/Amino Acids/Dextrose/ Fat Emulsion Intravenous 1,400 ml @ 58.333 mls/ hr TPN CONT IV Last administered on 08/02/19at 21:52; Start 08/02/19 at 22:00; Stop 08/03/19 at 21:59; Status DC Sodium Chloride (Normal Saline Flush) 10 ml QSHIFT PRN IV AFTER MEDS AND BLOOD DRAWS; Start 08/02/19 at 15:00; Stop 08/30/19 at 11:27; Status DC Sodium Chloride (Normal Saline Flush) 10 ml PRN Q5MIN PRN IV AFTER MEDS AND BLO OD DRAWS; Start 08/02/19 at 15:00 Sodium Chloride (Normal Saline Flush) 20 ml PRN Q5MIN PRN IV AFTER MEDS AND BLOOD DRAWS; Start 08/02/19 at 15:00 Sodium Chloride 100 meq/Potassium Phosphate 19 mmol/ Magnesium Sulfate 12 meq/Calcium Gluconate 15 meq/ Multivitamins 10 ml/Chromium/ Copper/Manganese/ Seleni/Zn 0.5 ml/ Insulin Human Regular 40 unit/ Potassium Chloride 20 meq/ Total Parenteral Nutrition/Amino Acids/Dextrose/ Fat Emulsion Intravenous 1,400 ml @ 58.333 mls/ hr TPN CONT IV Last administered on 08/03/19at 21:20; Start 08/03/19 at 22:00; Stop 08/04/19 at 21:59; Status DC Lidocaine HCl (Buffered Lidocaine 1%) 3 ml STK-MED ONCE .ROUTE ; Start 08/03/19 at 13:16; Stop 08/03/19 at 13:16; Status DC Lidocaine HCl (Buffered Lidocaine 1%) 6 ml 1X ONCE INJ Last administered on 08/03/19at 13:45; Start 08/03/19 at 13:30; Stop 08/03/19 at 13:31; Status DC Albumin Human 100 ml @ 100 mls/hr 1X ONCE IV Last administered on 08/03/19at 15:41; Start 08/03/19 at 15:00; Stop 08/03/19 at 15:59; Status DC Albumin Human 50 ml @ 50 mls/hr 1X ONCE IV Last administered on 08/03/19at 15:00; Start 08/03/19 at 15:00; Stop 08/03/19 at 15:59; Status DC Info (PHARMACY MONITORING -- do not chart) 1 each PRN DAILY PRN MC SEE COMMENTS; Start 08/04/19 at 11:30; Status Cancel Info (PHARMACY MONITORING -- do not chart) 1 each PRN DAILY PRN MC SEE COMMENTS; Start 08/04/19 at 11:30; Status UNV Sodium Chloride 100 meq/Potassium Phosphate 10 mmol/ Magnesium Sulfate 12 meq/Calcium Gluconate 15 meq/ Multivitamins 10 ml/Chromium/ Copper/Manganese/ Seleni/Zn 0.5 ml/ Insulin Human Regular 35 unit/ Potassium Chloride 20 meq/ Total Parenteral Nutrition/Amino Acids/Dextrose/ Fat Emulsion Intravenous 1,400 ml @ 58.333 mls/ hr TPN CONT IV Last administered on 08/04/19at 22:10; Start 08/04/19 at 22:00; Stop 08/05/19 at 21:59; Status DC Sodium Chloride 100 meq/Potassium Phosphate 5 mmol/ Magnesium Sulfate 12 meq/Zachariah cium Gluconate 15 meq/ Multivitamins 10 ml/Chromium/ Copper/Manganese/ Seleni/Zn 0.5 ml/ Insulin Human Regular 35 unit/ Potassium Chloride 20 meq/ Total Parenteral Nutrition/Amino Acids/Dextrose/ Fat Emulsion Intravenous 1,400 ml @ 58.333 mls/ hr TPN CONT IV Last administered on 08/05/19at 22:59; Start 08/05/19 at 22:00; Stop 08/06/19 at 21:59; Status DC Sodium Chloride 1,000 ml @ 1,000 mls/hr Q1H PRN IV hypotension; Start 08/06/19 at 08:27; Stop 08/06/19 at 14:26; Status DC Albumin Human 200 ml @ 200 mls/hr 1X PRN PRN IV Hypotension Last administered on 08/06/19at 09:18; Start 08/06/19 at 08:30; Stop 08/06/19 at 14:29; Status DC Sodium Chloride 1,000 ml @ 400 mls/hr [id number] PRN IV PATENCY; Start 08/06/19 at 08:27; Stop 08/06/19 at 20:26; Status DC Info (PHARMACY MONITORING -- do not chart) 1 each PRN DAILY PRN MC SEE COMMENTS; Start 08/06/19 at 08:30; Status Cancel Info (PHARMACY MONITORING -- do not chart) 1 each PRN DAILY PRN MC SEE COMMENTS; Start 08/06/19 at 08:30; Stop 08/14/19 at 13:10; Status DC Sodium Chloride 100 meq/Potassium Chloride 40 meq/ Magnesium Sulfate 15 meq/Calcium Gluconate 15 meq/ Multivitamins 10 ml/Chromium/ Copper/Manganese/ Seleni/Zn 0.5 ml/ Insulin Human Regular 35 unit/ Total Parenteral Nutrition/Amino Acids/Dextrose/ Fat Emulsion Intravenous 1,400 ml @ 58.333 mls/ hr TPN CONT IV Last administered on 08/06/19at 22:00; Start 08/06/19 at 22:00; Stop 08/07/19 at 21:59; Status DC Potassium Chloride/Water 100 ml @ 100 mls/hr 1X ONCE IV Last administered on 08/06/19at 17:28; Start 08/06/19 at 14:45; Stop 08/06/19 at 15:44; Status DC Sodium Chloride 100 meq/Potassium Chloride 40 meq/ Magnesium Sulfate 15 meq/Calcium Gluconate 15 meq/ Multivitamins 10 ml/Chromium/ Copper/Manganese/ Seleni/Zn 0.5 ml/ Insulin Human Regular 35 unit/ Total Parenteral Nutrition/Amino Acids/Dextrose/ Fat Emulsion Intravenous 1,400 ml @ 58.333 mls/ hr TPN CONT IV Last administered on 08/07/19at 22:46; Start 08/07/19 at 22:00; Stop 08/08/19 at 21:59; Status DC Sodium Chloride 100 meq/Potassium Chloride 40 meq/ Magnesium Sulfate 20 meq/Calcium Gluconate 15 meq/ Multivitamins 10 ml/Chromium/ Copper/Manganese/ Seleni/Zn 0.5 ml/ Insulin Human Regular 35 unit/ Total Parenteral Nutrition/Amino Acids/Dextrose/ Fat Emulsion Intravenous 1,400 ml @ 58.333 mls/ hr TPN CONT IV Last administered on 08/08/19at 22:31; Start 08/08/19 at 22:00; Stop 08/09/19 at 21:59; Status DC Fentanyl Citrate (Fentanyl 2ml Vial) 50 mcg PRN Q2HR PRN IVP PAIN Last administered on 08/15/19at 13:32; Start 08/08/19 at 21:00; Stop 08/16/19 at 12:53; Status DC Fentanyl Citrate (Fentanyl 2ml Vial) 25 mcg PRN Q2HR PRN IVP PAIN; Start 08/08/19 at 21:00; Stop 08/16/19 at 12:54; Status DC Enoxaparin Sodium (Lovenox 100mg Syringe) 100 mg Q12HR SQ ; Start 08/09/19 at 21:00; Status UNV Amino Acids/ Glycerin/ Electrolytes 1,000 ml @ 75 mls/hr [id number] IV ; Start 08/08/19 at 21:15; Status UNV Sodium Chloride 1,000 ml @ 1,000 mls/hr Q1H PRN IV hypotension; Start 08/09/19 at 07:56; Stop 08/09/19 at 13:55; Status DC Albumin Human 200 ml @ 200 mls/hr 1X PRN PRN IV Hypotension Last administered on 08/09/19at 08:40; Start 08/09/19 at 08:00; Stop 08/09/19 at 13:59; Status DC Sodium Chloride 1,000 ml @ 400 mls/hr Q2H30M PRN IV PATENCY; Start 08/09/19 at 07:56; Stop 08/09/19 at 19:55; Status DC Info (PHARMACY MONITORING -- do not chart) 1 each PRN DAILY PRN MC SEE COMMENTS; Start 08/09/19 at 08:00; Status UNV Info (PHARMACY MONITORING -- do not chart) 1 each PRN DAILY PRN MC SEE COMMENTS; Start 08/09/19 at 08:00; Status UNV Daptomycin 430 mg/ Sodium Chloride 50 ml @ 100 mls/hr Q24H IV Last administered on 08/09/19at 12:35; Start 08/09/19 at 09:00; Stop 4/21/20 at 1 2:49; Status DC Sodium Chloride 100 meq/Potassium Chloride 40 meq/ Magnesium Sulfate 20 meq/Calcium Gluconate 15 meq/ Multivitamins 10 ml/Chromium/ Copper/Manganese/ Seleni/Zn 0.5 ml/ Insulin Human Regular 35 unit/ Total Parenteral Nutrition/Amino Acids/Dextrose/ Fat Emulsion Intravenous 1,400 ml @ 58.333 mls/ hr TPN CONT IV Last administered on 08/09/19at 21:26; Start 08/09/19 at 22:00; Stop 08/10/19 at 21:59; Status DC Daptomycin 430 mg/ Sodium Chloride 50 ml @ 100 mls/hr Q48H IV ; Start 08/11/19 at 09:00; Stop 08/10/19 at 11:55; Status DC Sodium Chloride 100 meq/Potassium Chloride 40 meq/ Magnesium Sulfate 20 meq/Calcium Gluconate 15 meq/ Multivitamins 10 ml/Chromium/ Copper/Manganese/ Seleni/Zn 0.5 ml/ Insulin Human Regular 35 unit/ Total Parenteral Nutrition/Amino Acids/Dextrose/ Fat Emulsion Intravenous 1,400 ml @ 58.333 mls/ hr TPN CONT IV Last administered on 08/10/19at 22:27; Start 08/10/19 at 22:00; Stop 08/11/19 at 21:59; Status DC Daptomycin 430 mg/ Sodium Chloride 50 ml @ 100 mls/hr Q24H IV Last administered on 08/12/19at 15:07; Start 08/10/19 at 13:00; Stop 08/13/19 at 13:15; Status DC Sodium Chloride 100 meq/Potassium Chloride 40 meq/ Magnesium Sulfate 20 meq/Calcium Gluconate 10 meq/ Multivitamins 10 ml/Chromium/ Copper/Manganese/ Se dinorah/Zn 0.5 ml/ Insulin Human Regular 35 unit/ Total Parenteral Nutrition/Amino Acids/Dextrose/ Fat Emulsion Intravenous 1,400 ml @ 58.333 mls/ hr TPN CONT IV Last administered on 08/12/19at 00:06; Start 08/11/19 at 22:00; Stop 08/12/19 at 21:59; Status DC Alteplase, Recombinant (Cathflo For Central Catheter Clearance) 1 mg 1X ONCE INT CAT Last administered on 08/12/19at 11:44; Start 08/12/19 at 10:45; Stop 08/12/19 at 10:46; Status DC Ondansetron HCl (Zofran) 4 mg PRN Q6HRS PRN IV NAUSEA/VOMITING; Start 08/15/19 at 07:00; Stop 08/16/19 at 06:59; Status DC Fentanyl Citrate (Fentanyl 2ml Vial) 25 mcg PRN Q5MIN PRN IV MILD PAIN 1-3; Start 08/15/19 at 07:00; Stop 08/16/19 at 06:59; Status DC Fentanyl Citrate (Fentanyl 2ml Vial) 50 mcg PRN Q5MIN PRN IV MODERATE TO SEVERE PAIN Last administered on 08/15/19at 10:17; Start 08/15/19 at 07:00; Stop 08/16/19 at 06:59; Status DC Ringer's Solution 1,000 ml @ 30 mls/hr Q24H IV ; Start 08/15/19 at 07:00; Stop 08/15/19 at 18:59; Status DC Lidocaine HCl (Xylocaine-Mpf 1% 2ml Vial) 2 ml PRN 1X PRN ID PRIOR TO IV START; Start 08/15/19 at 07:00; Stop 08/16/19 at 06:59; Status DC Prochlorperazine Edisylate (Compazine) 5 mg PACU PRN PRN IV NAUSEA, MRX1; Start 08/15/19 at 07:00; Stop 08/16/19 at 06:59; Status DC Sodium Acetate 50 meq/Potassium Acetate 55 meq/ Magnesium Sulfate 20 meq/Calcium Gluconate 10 meq/ Multivitamins 10 ml/Chromium/ Copper/Manganese/ Seleni/Zn 0.5 ml/ Insulin Human Regular 35 unit/ Total Parenteral Nutrition/Amino Acids/Dextrose/ Fat Emulsion Intravenous 1,400 ml @ 58.333 mls/ hr TPN CONT IV ; Start 08/12/19 at 22:00; Stop 08/12/19 at 14:15; Status DC Sodium Acetate 50 meq/Potassium Acetate 55 meq/ Magnesium Sulfate 20 meq/Calcium Gluconate 10 meq/ Multivitamins 10 ml/Chromium/ Copper/Manganese/ Seleni/Zn 0.5 ml/ Insulin Human Regular 35 unit/ Total Parenteral Nutrition/Amino Acids/Dextrose/ Fat Emulsion Intravenous 1,800 ml @ 75 mls/hr TPN CONT IV Last administered on 08/12/19at 22:38; Start 08/12/19 at 22:00; Stop 08/13/19 at 21:59; Status DC Sodium Chloride 1,000 ml @ 1,000 mls/hr Q1H PRN IV hypotension; Start 08/12/19 at 15:31; Stop 08/12/19 at 21:30; Status DC Diphenhydramine HCl (Benadryl) 25 mg 1X PRN PRN IV ITCHING; Start 08/12/19 at 15:45; Stop 08/13/19 at 15:44; Status DC Diphenhydramine HCl (Benadryl) 25 mg 1X PRN PRN IV ITCHING; Start 08/12/19 at 15:45; Stop 08/13/19 at 15:44; Status DC Sodium Chloride 1,000 ml @ 400 mls/hr Q2H30M PRN IV PATENCY; Start 08/12/19 at 15:31; Stop 08/13/19 at 03:30; Status DC Info (PHARMACY MONITORING -- do not chart) 1 each PRN DAILY PRN MC SEE COMMENTS; Start 08/12/19 at 15:45; Stop 09/13/19 at 14:14; Status DC Sodium Acetate 50 meq/Potassium Acetate 55 meq/ Magnesium Sulfate 20 meq/Calcium Gluconate 10 meq/ Multivitamins 10 ml/Chromium/ Copper/Manganese/ Seleni/Zn 0.5 ml/ Insulin Human Regular 35 unit/ Total Parenteral Nutrition/Amino Acids/Dextrose/ Fat Emulsion Intravenous 1,800 ml @ 75 mls/hr TPN CONT IV Last administered on 08/13/19at 22:03; Start 08/13/19 at 22:00; Stop 08/14/19 at 21:59; Status DC Daptomycin 430 mg/ Sodium Chloride 50 ml @ 100 mls/hr Q24H IV Last administered on 08/18/19at 13:00; Start 08/13/19 at 13:00; Stop 08/18/19 at 20:58; Status DC Heparin Sodium (Porcine) 1000 unit/Sodium Chloride 1,001 ml @ 1,001 mls/hr 1X ONCE IRR ; Start 08/15/19 at 06:00; Stop 08/15/19 at 06:59; Status DC Potassium Acetate 55 meq/Magnesium Sulfate 20 meq/ Calcium Gluconate 10 meq/ Multivitamins 10 ml/Chromium/ Copper/Manganese/ Seleni/Zn 0.5 ml/ Insulin Human Regular 35 unit/ Total Parenteral Nutrition/Amino Acids/Dextrose/ Fat Emulsion Intravenous 1,920 ml @ 80 mls/hr TPN CONT IV Last administered on 08/14/19at 22:10; Start 08/14/19 at 22:00; Stop 08/15/19 at 21:59; Status DC Dexamethasone Sodium Phosphate (Decadron) 4 mg STK-MED ONCE .ROUTE ; Start 08/15/19 at 10:56; Stop 08/15/19 at 10:57; Status DC Ondansetron HCl (Zofran) 4 mg STK-MED ONCE .ROUTE ; Start 08/15/19 at 10:56; Stop 08/15/19 at 10:57; Status DC Rocuronium Hurst (Zemuron) 50 mg STK-MED ONCE .ROUTE ; Start 08/15/19 at 10:56; Stop 08/15/19 at 10:57; Status DC Fentanyl Citrate (Fentanyl 2ml Vial) 100 mcg STK-MED ONCE .ROUTE ; Start 08/15/19 at 10:56; Stop 08/15/19 at 10:57; Status DC Bupivacaine HCl/ Epinephrine Bitart (Sensorcain-Epi 0.5%-1:[id number] Mpf) 30 ml STK-MED ONCE .ROUTE Last administered on 08/15/19at 12:01; Start 08/15/19 at 10:58; Stop 08/15/19 at 10:58; Status DC Cellulose (Surgicel Hemostat 2x14) 1 each STK-MED ONCE .ROUTE ; Start 08/15/19 at 10:58; Stop 08/15/19 at 10:59; Status DC Iohexol (Omnipaque 300 Mg/ml) 50 ml STK-MED ONCE .ROUTE ; Start 08/15/19 at 10:58; Stop 08/15/19 at 10:59; Status DC Cellulose (Surgicel Hemostat 4x8) 1 each STK-MED ONCE .ROUTE ; Start 08/15/19 at 10:58; Stop 08/15/19 at 10:59; Status DC Bisacodyl (Dulcolax Supp) 10 mg STK-MED ONCE .ROUTE ; Start 08/15/19 at 10:59; Stop 08/15/19 at 10:59; Status DC Heparin Sodium (Porcine) 1000 unit/Sodium Chloride 1,001 ml @ 1,001 mls/hr 1X ONCE IRR ; Start 08/15/19 at 12:00; Stop 08/15/19 at 12:59; Status DC Propofol 20 ml @ As Directed STK-MED ONCE IV ; Start 08/15/19 at 11:05; Stop 08/15/19 at 11:05; Status DC Sevoflurane (Ultane) 90 ml STK-MED ONCE IH ; Start 08/15/19 at 11:05; Stop 08/15/19 at 11:05; Status DC Sevoflurane (Ultane) 60 ml STK-MED ONCE IH ; Start 08/15/19 at 12:26; Stop 08/15/19 at 12:27; Status DC Propofol 20 ml @ As Directed STK-MED ONCE IV ; Start 08/15/19 at 12:26; Stop 08/15/19 at 12:27; Status DC Phenylephrine HCl (PHENYLEPHRINE in 0.9% NACL PF) 1 mg STK-MED ONCE IV ; Start 08/15/19 at 12:34; Stop 08/15/19 at 12:34; Status DC Heparin Sodium (Porcine) (Heparin Sodium) 5,000 unit Q12HR SQ Last administered on 08/24/19at 20:57; Start 08/15/19 at 21:00; Stop 08/25/19 at 09:59; Status DC Sodium Chloride (Normal Saline Flush) 3 ml QSHIFT PRN IV AFTER MEDS AND BLOOD DRAWS; Start 08/15/19 at 13:45; Status Cancel Naloxone HCl (Narcan) 0.4 mg PRN Q2MIN PRN IV SEE INSTRUCTIONS Last administere d on 09/24/19at 15:15; Start 08/15/19 at 13:45; Stop 10/19/19 at 16:00; Status DC Sodium Chloride 1,000 ml @ 25 mls/hr Q24H IV Last administered on 09/13/19at 13:37; Start 08/15/19 at 13:37; Stop 09/16/19 at 13:09; Status DC Naloxone HCl (Narcan) 0.4 mg PRN Q2MIN PRN IV SEE INSTRUCTIONS; Start 08/15/19 at 14:30; Status UNV Sodium Chloride 1,000 ml @ 25 mls/hr Q24H IV ; Start 08/15/19 at 14:30; Status UNV Hydromorphone HCl 30 ml @ 0 mls/hr CONT PRN PRN IV PER PROTOCOL Last administered on 08/20/19at 16:08; Start 08/15/19 at 14:30; Stop 08/22/19 at 08:55; Status DC Potassium Acetate 55 meq/Magnesium Sulfate 20 meq/ Calcium Gluconate 10 meq/ Multivitamins 10 ml/Chromium/ Copper/Manganese/ Seleni/Zn 0.5 ml/ Insulin Human Regular 35 unit/ Total Parenteral Nutrition/Amino Acids/Dextrose/ Fat Emulsion Intravenous 1,920 ml @ 80 mls/hr TPN CONT IV Last administered on 08/15/19at 22:01; Start 08/15/19 at 22:00; Stop 08/16/19 at 21:59; Status DC Bumetanide (Bumex) 2 mg [id number] IV Last administered on 08/19/19at 13:50; Start 08/16/19 at 14:00; Stop 08/20/19 at 14:10; Status DC Meropenem 1 gm/ Sodium Chloride 100 ml @ 200 mls/hr Q8HRS IV Last administered on 09/09/19at 05:53; Start 08/16/19 at 14:00; Stop 09/09/19 at 09:31; Status DC Potassium Acetate 55 meq/Magnesium Sulfate 20 meq/ Calcium Gluconate 10 meq/ Multivitamins 10 ml/Chromium/ Copper/Manganese/ Seleni/Zn 0.5 ml/ Insulin Human Regular 35 unit/ Total Parenteral Nutrition/Amino Acids/Dextrose/ Fat Emulsion Intravenous 1,920 ml @ 80 mls/hr TPN CONT IV Last administered on 08/16/19at 22:02; Start 08/16/19 at 22:00; Stop 08/17/19 at 21:59; Status DC Hydromorphone HCl (Dilaudid Standard MOVIE THEATER MANAGER) 12 mg STK-MED ONCE IV ; Start 08/15/19 at 14:35; Stop 08/16/19 at 13:53; Status DC Artificial Tears (Artificial Tears) 1 drop PRN Q15MIN PRN OU DRY EYE Last administered on 10/11/19at 21:17; Start 08/17/19 at 05:30 Hydromorphone HCl (Dilaudid Standard MOVIE THEATER MANAGER) 12 mg STK-MED ONCE IV ; Start 08/16/19 at 12:05; Stop 08/17/19 at 09:15; Status DC Potassium Acetate 65 meq/Magnesium Sulfate 20 meq/ Calcium Gluconate 10 meq/ Multivitamins 10 ml/Chromium/ Copper/Manganese/ Seleni/Zn 0.5 ml/ Insulin Human Regular 30 unit/ Total Parenteral Nutrition/Amino Acids/Dextrose/ Fat Emulsion Intravenous 1,920 ml @ 80 mls/hr TPN CONT IV Last administered on 08/17/19at 22:22; Start 08/17/19 at 22:00; Stop 08/18/19 at 21:59; Status DC Cyclobenzaprine HCl (Flexeril) 10 mg PRN Q6HRS PRN PO MUSCLE SPASMS Last administered on 10/28/19at 19:12; Start 08/18/19 at 10:45 Potassium Acetate 55 meq/Magnesium Sulfate 20 meq/ Calcium Gluconate 10 meq/ Multivitamins 10 ml/Chromium/ Copper/Manganese/ Seleni/Zn 0.5 ml/ Insulin Human Regular 30 unit/ Total Parenteral Nutrition/Amino Acids/Dextrose/ Fat Emulsion Intravenous 1,920 ml @ 80 mls/hr TPN CONT IV Last administered on 08/19/19at 01:00; Start 08/18/19 at 22:00; Stop 08/19/19 at 21:59; Status DC Magnesium Sulfate 50 ml @ 25 mls/hr 1X ONCE IV Last administered on 08/18/19at 17:18; Start 08/18/19 at 12:45; Stop 08/18/19 at 14:44; Status DC Potassium Chloride/Water 100 ml @ 100 mls/hr 1X ONCE IV Last administered on 08/19/19at 11:27; Start 08/19/19 at 12:00; Stop 08/19/19 at 12:59; Status DC Hydromorphone HCl (Dilaudid Standard MOVIE THEATER MANAGER) 12 mg STK-MED ONCE IV ; Start 08/17/19 at 10:50; Stop 08/19/19 at 11:02; Status DC Hydromorphone HCl (Dilaudid Standard MOVIE THEATER MANAGER) 12 mg STK-MED ONCE IV ; Start 08/18/19 at 13:47; Stop 08/19/19 at 11:03; Status DC Potassium Acetate 30 meq/Magnesium Sulfate 20 meq/ Calcium Gluconate 10 meq/ Multivitamins 10 ml/Chromium/ Copper/Manganese/ Seleni/Zn 0.5 ml/ Insulin Human Regular 30 unit/ Potassium Chloride 30 meq/ Total Parenteral Nutrition/Amino Acids/Dextrose/ Fat Emulsion Intravenous 1,920 ml @ 80 mls/hr TPN CONT IV Last administered on 08/19/19at 22:34; Start 08/19/19 at 22:00; Stop 08/20/19 at 21:59; Status DC Potassium Chloride/Water 100 ml @ 100 mls/hr Q1H IV Last administered on 08/20/19at 13:05; Start 08/20/19 at 07:00; Stop 08/20/19 at 10:59; Status DC Magnesium Sulfate 50 ml @ 25 mls/hr 1X ONCE IV Last administered on 08/20/19at 10:34; Start 08/20/19 at 10:30; Stop 08/20/19 at 12:29; Status DC Potassium Chloride 75 meq/ Magnesium Sulfate 20 meq/Calcium Gluconate 10 meq/ Multivitamins 10 ml/Chromium/ Copper/Manganese/ Seleni/Zn 0.5 ml/ Insulin Human Regular 30 unit/ Total Parenteral Nutrition/Amino Acids/Dextrose/ Fat Emulsion Intravenous 1,920 ml @ 80 mls/hr TPN CONT IV Last administered on 08/20/19at 21:51; Start 08/20/19 at 22:00; Stop 08/21/19 at 22:00; Status DC Potassium Chloride 75 meq/ Magnesium Sulfate 20 meq/Calcium Gluconate 10 meq/ Multivitamins 10 ml/Chromium/ Copper/Manganese/ Seleni/Zn 0.5 ml/ Insulin Human Regular 25 unit/ Total Parenteral Nutrition/Amino Acids/Dextrose/ Fat Emulsion Intravenous 1,920 ml @ 80 mls/hr TPN CONT IV Last administered on 08/21/19at 22:04; Start 08/21/19 at 22:00; Stop 08/22/19 at 21:59; Status DC Hydromorphone HCl (Dilaudid) 0.4 mg PRN Q4HRS PRN IVP PAIN Last administered on 08/22/19at 10:57; Start 08/22/19 at 09:00; Stop 08/22/19 at 18:59; Status DC Micafungin Sodium 100 mg/Dextrose 100 ml @ 100 mls/hr Q24H IV Last administered on 09/13/19at 12:17; Start 08/22/19 at 11:00; Stop 09/14/19 at 09:59; Status DC Daptomycin 485 mg/ Sodium Chloride 50 ml @ 100 mls/hr Q24H IV Last administered on 08/29/19at 13:10; Start 08/22/19 at 11:00; Stop 08/30/19 at 07:44; Status DC Potassium Chloride 75 meq/ Magnesium Sulfate 15 meq/Calcium Gluconate 8 meq/ Multivitamins 10 ml/Chromium/ Copper/Manganese/ Seleni/Zn 0.5 ml/ Insulin Human Regular 25 unit/ Total Parenteral Nutrition/Amino Acids/Dextrose/ Fat Emulsion Intravenous 1,920 ml @ 80 mls/hr TPN CONT IV Last administered on 08/22/19at 23:08; Start 08/22/19 at 22:00; Stop 08/23/19 at 21:59; Status DC Haloperidol Lactate (Haldol Inj) 3 mg 1X ONCE IVP Last administered on 08/22/19at 14:37; Start 08/22/19 at 14:30; Stop 08/22/19 at 14:31; Status DC Hydromorphone HCl (Dilaudid) 1 mg PRN Q4HRS PRN IVP PAIN Last administered on 09/05/19at 06:25; Start 08/22/19 at 19:00; Stop 09/05/19 at 17:10; Status DC Potassium Chloride 75 meq/ Magnesium Sulfate 15 meq/Calcium Gluconate 8 meq/ Multivitamins 10 ml/Chromium/ Copper/Manganese/ Seleni/Zn 0.5 ml/ Insulin Human Regular 20 unit/ Total Parenteral Nutrition/Amino Acids/Dextrose/ Fat Emulsion Intravenous 1,920 ml @ 80 mls/hr TPN CONT IV Last administered on 08/23/19at 22:10; Start 08/23/19 at 22:00; Stop 08/24/19 at 21:59; Status DC Lidocaine HCl (Buffered Lidocaine 1%) 3 ml STK-MED ONCE .ROUTE ; Start 08/24/19 at 11:31; Stop 08/24/19 at 11:31; Status DC Lidocaine HCl (Buffered Lidocaine 1%) 3 ml STK-MED ONCE .ROUTE ; Start 08/24/19 at 12:28; Stop 08/24/19 at 12:29; Status DC Lidocaine HCl (Buffered Lidocaine 1%) 6 ml 1X ONCE INJ Last administered on 08/24/19at 12:53; Start 08/24/19 at 12:45; Stop 08/24/19 at 12:46; Status DC Potassium Chloride 75 meq/ Magnesium Sulfate 15 meq/Calcium Gluconate 8 meq/ Multivitamins 10 ml/Chromium/ Copper/Manganese/ Seleni/Zn 0.5 ml/ Insulin Human Regular 20 unit/ Total Parenteral Nutrition/Amino Acids/Dextrose/ Fat Emulsion Intravenous 1,920 ml @ 80 mls/hr TPN CONT IV Last administered on 08/24/19at 22:00; Start 08/24/19 at 22:00; Stop 08/25/19 at 21:59; Status DC Potassium Chloride 75 meq/ Magnesium Sulfate 15 meq/Calcium Gluconate 8 meq/ Multivitamins 10 ml/Chromium/ Copper/Manganese/ Seleni/Zn 0.5 ml/ Insulin Human Regular 15 unit/ Total Parenteral Nutrition/Amino Acids/Dextrose/ Fat Emulsion Intravenous 1,920 ml @ 80 mls/hr TPN CONT IV Last administered on 08/25/19at 22:28; Start 08/25/19 at 22:00; Stop 08/26/19 at 21:59; Status DC Vecuronium Hurst (Norcuron Bolus) 6 mg PRN Q6HRS PRN IV VENT ASYNCHRONY; Start 08/25/19 at 19:15; Stop 08/25/19 at 19:35; Status DC Bumetanide (Bumex) 2 mg 1X ONCE IV Last administered on 08/25/19at 22:09; Start 08/25/19 at 19:45; Stop 08/25/19 at 19:46; Status DC Lidocaine HCl (Buffered Lidocaine 1%) 3 ml STK-MED ONCE .ROUTE ; Start 08/26/19 at 07:59; Stop 08/26/19 at 07:59; Status DC Midazolam HCl (Versed) 5 mg STK-MED ONCE .ROUTE ; Start 08/26/19 at 08:36; Stop 08/26/19 at 08:36; Status DC Fentanyl Citrate (Fentanyl 5ml Vial) 250 mcg STK-MED ONCE .ROUTE ; Start 08/26/19 at 08:36; Stop 08/26/19 at 08:37; Status DC Lidocaine HCl (Buffered Lidocaine 1%) 3 ml 1X ONCE IJ Last administered on 08/26/19at 09:30; Start 08/26/19 at 09:15; Stop 08/26/19 at 09:16; Status DC Midazolam HCl (Versed) 5 mg 1X ONCE IV Last administered on 08/26/19at 09:30; Start 08/26/19 at 09:15; Stop 08/26/19 at 09:16; Status DC Fentanyl Citrate (Fentanyl 5ml Vial) 250 mcg 1X ONCE IV Last administered on 08/26/19 09:30; Start 08/26/19 at 09:15; Stop 08/26/19 at 09:16; Status DC Bumetanide (Bumex) 2 mg DAILY IV Last administered on 09/05/19at 08:07; Start 08/26/19 at 10:00; Stop 09/05/19 at 17:15; Status DC Potassium Chloride 75 meq/ Magnesium Sulfate 15 meq/ Multivitamins 10 ml/Chromium/ Copper/Manganese/ Seleni/Zn 0.5 ml/ Insulin Human Regular 15 unit/ Total Parenteral Nutrition/Amino Acids/Dextrose/ Fat Emulsion Intravenous 1,920 ml @ 80 mls/hr TPN CONT IV Last administered on 08/26/19at 21:59; Start 08/26/19 at 22:00; Stop 08/27/19 at 21:59; Status DC Metoclopramide HCl (Reglan Vial) 10 mg PRN Q3HRS PRN IVP NAUSEA/VOMITING-3rd choice Last administered on 09/01/19at 04:25; Start 08/27/19 at 16:45 Potassium Chloride 75 meq/ Magnesium Sulfate 15 meq/ Multivitamins 10 ml/Chromium/ Copper/Manganese/ Seleni/Zn 0.5 ml/ Insulin Human Regular 15 unit/ Total Parenteral Nutrition/Amino Acids/Dextrose/ Fat Emulsion Intravenous 1,920 ml @ 80 mls/hr TPN CONT IV Last administered on 08/27/19at 22:41; Start 08/27/19 at 22:00; Stop 08/28/19 at 21:59; Status DC Magnesium Sulfate 50 ml @ 25 mls/hr 1X ONCE IV Last administered on 08/28/19at 10:44; Start 08/28/19 at 09:00; Stop 08/28/19 at 10:59; Status DC Potassium Chloride/Water 100 ml @ 100 mls/hr 1X ONCE IV Last administered on 08/28/19at 09:37; Start 08/28/19 at 09:00; Stop 08/28/19 at 09:59; Status DC Duloxetine HCl (Cymbalta) 30 mg DAILY PO Last administered on 08/29/19at 09:48; Start 08/28/19 at 14:00; Stop 08/31/19 at 10:25; Status DC Potassium Chloride 80 meq/ Magnesium Sulfate 20 meq/ Multivitamins 10 ml/Chromium/ Copper/Manganese/ Seleni/Zn 0.5 ml/ Insulin Human Regular 15 unit/ Total Parenteral Nutrition/Amino Acids/Dextrose/ Fat Emulsion Intravenous 1,920 ml @ 80 mls/hr TPN CONT IV Last administered on 08/28/19at 21:42; Start 08/28/19 at 22:00; Stop 08/29/19 at 21:59; Status DC Potassium Chloride 80 meq/ Magnesium Sulfate 20 meq/ Multivitamins 10 ml/Chromium/ Copper/Manganese/ Seleni/Zn 0.5 ml/ Insulin Human Regular 15 unit/ Total Parenteral Nutrition/Amino Acids/Dextrose/ Fat Emulsion Intravenous 1,920 ml @ 80 mls/hr TPN CONT IV Last administered on 08/29/19at 22:20; Start 08/29/19 at 22:00; Stop 08/30/19 at 21:59; Status DC Lidocaine HCl (Buffered Lidocaine 1%) 3 ml STK-MED ONCE .ROUTE ; Start 08/30/19 at 09:54; Stop 08/30/19 at 09:55; Status DC Hydromorphone HCl (Dilaudid Standard MOVIE THEATER MANAGER) 12 mg STK-MED ONCE IV ; Start 08/19/19 at 15:50; Stop 08/30/19 at 11:24; Status DC Potassium Chloride 80 meq/ Magnesium Sulfate 20 meq/ Multivitamins 10 ml/Chromium/ Copper/Manganese/ Seleni/Zn 0.5 ml/ Insulin Human Regular 15 unit/ Total Parenteral Nutrition/Amino Acids/Dextrose/ Fat Emulsion Intravenous 1,920 ml @ 80 mls/hr TPN CONT IV Last administered on 08/30/19at 21:40; Start 08/30/19 at 22:00; Stop 08/31/19 at 21:59; Status DC Lidocaine HCl (Buffered Lidocaine 1%) 6 ml 1X ONCE INJ Last administered on 08/30/19at 14:15; Start 08/30/19 at 14:15; Stop 08/30/19 at 14:16; Status DC Potassium Chloride 80 meq/ Magnesium Sulfate 20 meq/ Multivitamins 10 ml/Chromium/ Copper/Manganese/ Seleni/Zn 1 ml/ Insulin Human Regular 15 unit/ Total Parenteral Nutrition/Amino Acids/Dextrose/ Fat Emulsion Intravenous 1,920 ml @ 80 mls/hr TPN CONT IV Last administered on 08/31/19at 22:04; Start 08/31/19 at 22:00; Stop 09/01/19 at 21:59; Status DC Potassium Chloride/Water 100 ml @ 100 mls/hr 1X ONCE IV Last administered on 09/01/19at 11:34; Start 09/01/19 at 11:00; Stop 09/01/19 at 11:59; Status DC Potassium Chloride 90 meq/ Magnesium Sulfate 20 meq/ Multivitamins 10 ml/Chromium/ Copper/Manganese/ Seleni/Zn 1 ml/ Insulin Human Regular 15 unit/ Total Parenteral Nutrition/Amino Acids/Dextrose/ Fat Emulsion Intravenous 1,920 ml @ 80 mls/hr TPN CONT IV Last administered on 09/01/19at 22:57; Start 09/01/19 at 22:00; Stop 09/02/19 at 21:59; Status DC Potassium Chloride 90 meq/ Magnesium Sulfate 20 meq/ Multivitamins 10 ml/Chromium/ Copper/Manganese/ Seleni/Zn 1 ml/ Insulin Human Regular 15 unit/ Total Parenteral Nutrition/Amino Acids/Dextrose/ Fat Emulsion Intravenous 1,920 ml @ 80 mls/hr TPN CONT IV Last administered on 09/02/19at 22:48; Start 09/02/19 at 22:00; Stop 09/03/19 at 21:59; Status DC Potassium Chloride 90 meq/ Magnesium Sulfate 20 meq/ Multivitamins 10 ml/Chromium/ Copper/Manganese/ Seleni/Zn 1 ml/ Insulin Human Regular 15 unit/ Total Parenteral Nutrition/Amino Acids/Dextrose/ Fat Emulsion Intravenous 1,890 ml @ 78.75 mls/ hr TPN CONT IV Last administered on 09/03/19at 22:15; Start 09/03/19 at 22:00; Stop 09/04/19 at 21:59; Status DC Linezolid/Dextrose 300 ml @ 300 mls/hr Q12HR IV Last administered on 09/06/19at 21:08; Start 09/04/19 at 09:00; Stop 09/07/19 at 08:11; Status DC Daptomycin 450 mg/ Sodium Chloride 50 ml @ 100 mls/hr Q24H IV Last administered on 09/07/19at 09:25; Start 09/04/19 at 09:00; Stop 09/08/19 at 08:30; Status DC Potassium Chloride 90 meq/ Magnesium Sulfate 20 meq/ Multivitamins 10 ml/Chromium/ Copper/Manganese/ Seleni/Zn 1 ml/ Insulin Human Regular 15 unit/ Total Parenteral Nutrition/Amino Acids/Dextrose/ Fat Emulsion Intravenous 1,890 ml @ 78.75 mls/ hr TPN CONT IV Last administered on 09/04/19at 21:34; Start 09/04/19 at 22:00; Stop 09/05/19 at 21:59; Status DC Lorazepam (Ativan Inj) 2 mg STK-MED ONCE .ROUTE ; Start 09/04/19 at 14:58; Stop 09/04/19 at 14:58; Status DC Metoprolol Tartrate (Lopressor Vial) 5 mg 1X ONCE IVP Last administered on 09/04/19at 15:31; Start 09/04/19 at 15:15; Stop 09/04/19 at 15:16; Status DC Lorazepam (Ativan Inj) 2 mg 1X ONCE IVP Last administered on 09/04/19at 15:30; Start 09/04/19 at 15:15; Stop 09/04/19 at 15:16; Status DC Enoxaparin Sodium (Lovenox 40mg Syringe) 40 mg Q24H SQ Last administered on 09/23/19at 17:44; Start 09/04/19 at 17:00; Stop 09/25/19 at 06:50; Status DC Lorazepam (Ativan Inj) 1 mg PRN Q4HRS PRN IVP ANXIETY / AGITATION MILD-MOD Last administered on 09/18/19at 15:55; Start 09/04/19 at 19:15; Stop 09/20/19 at 11:45; Status DC Lorazepam (Ativan Inj) 2 mg PRN Q4HRS PRN IVP ANXIETY / AGITATION SEVERE Last administered on 09/19/19at 07:55; Start 09/04/19 at 19:15; Stop 09/20/19 at 11:45; Status DC Fentanyl Citrate (Fentanyl 2ml Vial) 50 mcg PRN Q4HRS PRN IVP SEVERE PAIN Last administered on 10/01/19at 05:15; Start 09/05/19 at 13:15; Stop 10/02/19 at 09:29; Status DC Fentanyl Citrate (Fentanyl 2ml Vial) 25 mcg PRN Q4HRS PRN IVP MODERATE PAIN Last administered on 10/01/19at 00:27; Start 09/05/19 at 13:15; Stop 10/02/19 at 09:30; Status DC Potassium Chloride 90 meq/ Magnesium Sulfate 20 meq/ Multivitamins 10 ml/Chromium/ Copper/Manganese/ Seleni/Zn 1 ml/ Insulin Human Regular 15 unit/ T otal Parenteral Nutrition/Amino Acids/Dextrose/ Fat Emulsion Intravenous 1,890 ml @ 78.75 mls/ hr TPN CONT IV Last administered on 09/05/19at 22:18; Start 09/05/19 at 22:00; Stop 09/06/19 at 21:59; Status DC Furosemide (Lasix) 40 mg 1X ONCE IVP Last administered on 09/05/19at 21:51; Start 09/05/19 at 21:45; Stop 09/05/19 at 21:48; Status DC Albumin Human 100 ml @ 100 mls/hr 1X PRN PRN IV SEE COMMENTS; Start 09/06/19 at 01:30 Furosemide (Lasix) 40 mg [id number] IVP Last administered on 09/21/19at 08:04; Start 09/06/19 at 14:00; Stop 09/21/19 at 13:07; Status DC Potassium Chloride 90 meq/ Magnesium Sulfate 20 meq/ Multivitamins 10 ml /Chromium/ Copper/Manganese/ Seleni/Zn 1 ml/ Insulin Human Regular 15 unit/ Total Parenteral Nutrition/Amino Acids/Dextrose/ Fat Emulsion Intravenous 1,800 ml @ 75 mls/hr TPN CONT IV Last administered on 09/06/19at 22:31; Start 09/06/19 at 22:00; Stop 09/07/19 at 21:59; Status DC Potassium Chloride 90 meq/ Magnesium Sulfate 20 meq/ Multivitamins 10 ml/Chromium/ Copper/Manganese/ Seleni/Zn 1 ml/ Insulin Human Regular 15 unit/ Total Parenteral Nutrition/Amino Acids/Dextrose/ Fat Emulsion Intravenous 1,800 ml @ 75 mls/hr TPN CONT IV Last administered on 09/07/19at 22:28; Start 09/07/19 at 22:00; Stop 09/08/19 at 21:59; Status DC Potassium Chloride 110 meq/ Magnesium Sulfate 20 meq/ Multivitamins 10 ml/Chromium/ Copper/Manganese/ Seleni/Zn 1 ml/ Insulin Human Regular 15 unit/ Total Parenteral Nutrition/Amino Acids/Dextrose/ Fat Emulsion Intravenous 1,800 ml @ 75 mls/hr TPN CONT IV Last administered on 09/08/19at 22:01; Start 09/08/19 at 22:00; Stop 09/09/19 at 21:59; Status DC Saliva Substitute (Biotene Moisturizing Mouth) 2 spray PRN Q15MIN PRN PO DRY MOUTH; Start 09/08/19 at 11:00 Potassium Chloride 110 meq/ Magnesium Sulfate 20 meq/ Multivitamins 10 ml/Chromium/ Copper/Manganese/ Seleni/Zn 1 ml/ Insulin Human Regular 15 unit/ Total Parenteral Nutrition/Amino Acids/Dextrose/ Fat Emulsion Intravenous 1,800 ml @ 75 mls/hr TPN CONT IV Last administered on 09/09/19at 22:21; Start 09/09/19 at 22:00; Stop 09/10/19 at 21:59; Status DC Potassium Chloride 110 meq/ Magnesium Sulfate 20 meq/ Multivitamins 10 ml /Chromium/ Copper/Manganese/ Seleni/Zn 1 ml/ Insulin Human Regular 15 unit/ Total Parenteral Nutrition/Amino Acids/Dextrose/ Fat Emulsion Intravenous 1,800 ml @ 75 mls/hr TPN CONT IV Last administered on 09/10/19at 22:04; Start 09/10/19 at 22:00; Stop 09/11/19 at 21:59; Status DC Potassium Chloride 110 meq/ Magnesium Sulfate 20 meq/ Multivitamins 10 ml/Chromium/ Copper/Manganese/ Seleni/Zn 1 ml/ Insulin Human Regular 15 unit/ Total Parenteral Nutrition/Amino Acids/Dextrose/ Fat Emulsion Intravenous 1,800 ml @ 75 mls/hr TPN CONT IV Last administered on 09/11/19at 22:48; Start 09/11/19 at 22:00; Stop 09/12/19 at 21:59; Status DC Potassium Chloride 70 meq/ Magnesium Sulfate 20 meq/ Multivitamins 10 ml/Chromium/ Copper/Manganese/ Seleni/Zn 1 ml/ Insulin Human Regular 15 unit/ Total Parenteral Nutrition/Amino Acids/Dextrose/ Fat Emulsion Intravenous 1,800 ml @ 75 mls/hr TPN CONT IV Last administered on 09/12/19at 21:39; Start 09/12/19 at 22:00; Stop 09/13/19 at 21:59; Status DC Meropenem 500 mg/ Sodium Chloride 50 ml @ 100 mls/hr Q6HRS IV Last administered on 09/14/19at 06:02; Start 09/12/19 at 18:00; Stop 09/14/19 at 09:59; Status DC Barium Sulfate (Varibar Thin Liquid Apple) 148 gm 1X ONCE PO ; Start 09/13/19 at 11:45; Stop 09/13/19 at 11:49; Status DC Potassium Chloride 70 meq/ Magnesium Sulfate 20 meq/ Multivitamins 10 ml/Chromium/ Copper/Manganese/ Seleni/Zn 1 ml/ Insulin Human Regular 15 unit/ Total Parenteral Nutrition/Amino Acids/Dextrose/ Fat Emulsion Intravenous 1,800 ml @ 75 mls/hr TPN CONT IV Last administered on 09/13/19at 22:27; Start 09/13/19 at 22:00; Stop 09/14/19 at 21:59; Status DC Piperacillin Sod/ Tazobactam Sod 3.375 gm/Sodium Chloride 50 ml @ 100 mls/hr Q6HRS IV Last administered on 09/22/19at 06:10; Start 09/14/19 at 12:00; Stop 09/22/19 at 07:26; Status DC Potassium Chloride 70 meq/ Magnesium Sulfate 20 meq/ Multivitamins 10 ml/Chromium/ Copper/Manganese/ Seleni/Zn 1 ml/ Insulin Human Regular 15 unit/ Total Parenteral Nutrition/Amino Acids/Dextrose/ Fat Emulsion Intravenous 1,800 ml @ 75 mls/hr TPN CONT IV Last administered on 09/14/19at 22:03; Start 09/14/19 at 22:00; Stop 09/15/19 at 21:59; Status DC Potassium Chloride 70 meq/ Magnesium Sulfate 20 meq/ Multivitamins 10 ml/Chromium/ Copper/Manganese/ Seleni/Zn 1 ml/ Insulin Human Regular 15 unit/ Total Parenteral Nutrition/Amino Acids/Dextrose/ Fat Emulsion Intravenous 1,800 ml @ 75 mls/hr TPN CONT IV Last administered on 09/15/19at 22:33; Start 09/15/19 at 22:00; Stop 09/16/19 at 21:59; Status DC Potassium Chloride 70 meq/ Magnesium Sulfate 20 meq/ Multivitamins 10 ml/Chromium/ Copper/Manganese/ Seleni/Zn 1 ml/ Insulin Human Regular 15 unit/ Total Parenteral Nutrition/Amino Acids/Dextrose/ Fat Emulsion Intravenous 1,800 ml @ 75 mls/hr TPN CONT IV Last administered on 09/16/19at 23:13; Start 09/16/19 at 22:00; Stop 09/17/19 at 21:59; Status DC Potassium Chloride 80 meq/ Magnesium Sulfate 20 meq/ Multivitamins 10 ml/Chromium/ Copper/Manganese/ Seleni/Zn 1 ml/ Insulin Human Regular 15 unit/ Total Parenteral Nutrition/Amino Acids/Dextrose/ Fat Emulsion Intravenous 1,800 ml @ 75 mls/hr TPN CONT IV Last administered on 09/17/19at 22:30; Start 09/17/19 at 22:00; Stop 09/18/19 at 21:59; Status DC Potassium Chloride 80 meq/ Magnesium Sulfate 20 meq/ Multivitamins 10 ml/Chromium/ Copper/Manganese/ Seleni/Zn 1 ml/ Insulin Human Regular 15 unit/ Total Parenteral Nutrition/Amino Acids/Dextrose/ Fat Emulsion Intravenous 1,800 ml @ 75 mls/hr TPN CONT IV Last administered on 09/18/19at 21:54; Start 09/18/19 at 22:00; Stop 09/19/19 at 21:59; Status DC Potassium Chloride/Water 100 ml @ 100 mls/hr 1X ONCE IV Last administered on 09/19/19at 10:15; Start 09/19/19 at 10:00; Stop 09/19/19 at 10:59; Status DC Potassium Chloride 90 meq/ Magnesium Sulfate 20 meq/ Multivitamins 10 ml/Chromium/ Copper/Manganese/ Seleni/Zn 1 ml/ Insulin Human Regular 20 unit/ Total Parenteral Nutrition/Amino Acids/Dextrose/ Fat Emulsion Intravenous 1,800 ml @ 75 mls/hr TPN CONT IV Last administered on 09/19/19at 22:28; Start 09/19/19 at 22:00; Stop 09/20/19 at 21:59; Status DC Potassium Chloride 90 meq/ Magnesium Sulfate 20 meq/ Multivitamins 10 ml/Chromium/ Copper/Manganese/ Seleni/Zn 1 ml/ Insulin Human Regular 20 unit/ Total Parenteral Nutrition/Amino Acids/Dextrose/ Fat Emulsion Intravenous 1,800 ml @ 75 mls/hr TPN CONT IV Last administered on 09/20/19at 22:08; Start 09/20/19 at 22:00; Stop 09/21/19 at 21:59; Status DC Lorazepam (Ativan Inj) 0.25 mg PRN Q4HRS PRN IVP ANXIETY / AGITATION Last administered on 11/18/19at 00:47; Start 09/21/19 at 07:30 Potassium Chloride 90 meq/ Magnesium Sulfate 20 meq/ Multivitamins 10 ml/Chromium/ Copper/Manganese/ Seleni/Zn 1 ml/ Insulin Human Regular 20 unit/ Total Parenteral Nutrition/Amino Acids/Dextrose/ Fat Emulsion Intravenous 1,800 ml @ 75 mls/hr TPN CONT IV Last administered on 09/21/19at 23:13; Start 09/21/19 at 22:00; Stop 09/22/19 at 21:59; Status DC Furosemide (Lasix) 40 mg DAILY IVP Last administered on 09/23/19at 11:14; Start 09/21/19 at 13:30; Stop 09/25/19 at 09:12; Status DC Fluoxetine HCl (PROzac) 20 mg QHS PEG Last administered on 11/17/19at 20:50; Start 09/22/19 at 21:00 Fentanyl (Duragesic 50mcg/ Hr Patch) 1 patch Q72H TD Last administered on 09/22/19at 21:22; Start 09/22/19 at 21:00; Stop 10/01/19 at 12:00; Status DC Potassium Chloride 40 meq/ Potassium Acetate 60 meq/Magnesium Sulfate 10 meq/ Multivitamins 10 ml/Chromium/ Copper/Manganese/ Seleni/Zn 1 ml/ Insulin Human Regular 20 unit/ Total Parenteral Nutrition/Amino Acids/Dextrose/ Fat Emulsion Intravenous 1,800 ml @ 75 mls/hr TPN CONT IV Last administered on 09/23/19at 00:03; Start 09/22/19 at 22:00; Stop 09/23/19 at 21:59; Status DC Potassium Acetate 80 meq/Magnesium Sulfate 5 meq/ Multivitamins 10 ml/Chromium/ Copper/Manganese/ Seleni/Zn 1 ml/ Insulin Human Regular 20 unit/ Total Parenteral Nutrition/Amino Acids/Dextrose/ Fat Emulsion Intravenous 1,920 ml @ 80 mls/hr TPN CONT IV Last administered on 09/23/19at 21:59; Start 09/23/19 at 22 :00; Stop 09/24/19 at 21:59; Status DC Potassium Acetate 60 meq/Magnesium Sulfate 5 meq/ Multivitamins 10 ml/Chromium/ Copper/Manganese/ Seleni/Zn 1 ml/ Insulin Human Regular 30 unit/ Total Parenteral Nutrition/Amino Acids/Dextrose/ Fat Emulsion Intravenous 1,920 ml @ 80 mls/hr TPN CONT IV Last administered on 09/24/19at 21:54; Start 09/24/19 at 22:00; Stop 09/25/19 at 21:59; Status DC Norepinephrine Bitartrate 8 mg/ Dextrose 258 ml @ 13.332 mls/ hr CONT PRN IV PER PROTOCOL Last administered on 10/20/19at 09:09; Start 09/25/19 at 06:30 Albumin Human 500 ml @ 125 mls/hr 1X ONCE IV Last administered on 09/25/19at 08:10; Start 09/25/19 at 08:15; Stop 09/25/19 at 12:14; Status DC Potassium Acetate 40 meq/Magnesium Sulfate 5 meq/ Multivitamins 10 ml/Chromium/ Copper/Manganese/ Seleni/Zn 1 ml/ Insulin Human Regular 30 unit/ Total Parenteral Nutrition/Amino Acids/Dextrose/ Fat Emulsion Intravenous 1,920 ml @ 80 mls/hr TPN CONT IV Last administered on 09/25/19at 22:23; Start 09/25/19 at 22:00; Stop 09/26/19 at 21:59; Status DC Meropenem 1 gm/ Sodium Chloride 100 ml @ 200 mls/hr Q8HRS IV ; Start 09/25/19 at 14:00; Status Cancel Meropenem 1 gm/ Sodium Chloride 100 ml @ 200 mls/hr Q8HRS IV Last administered on 09/25/19at 11:04; Start 09/25/19 at 10:00; Stop 09/25/19 at 13:00; Status DC Meropenem 1 gm/ Sodium Chloride 100 ml @ 200 mls/hr Q12HR IV Last administered on 10/13/19at 08:27; Start 09/25/19 at 21:00; Stop 10/13/19 at 08:56; Status DC Sodium Chloride 1,000 ml @ 1,000 mls/hr 1X ONCE IV Last administered on 09/25/19at 11:06; Start 09/25/19 at 10:45; Stop 09/25/19 at 11:44; Status DC Micafungin Sodium 100 mg/Dextrose 100 ml @ 100 mls/hr Q24H IV Last administered on 10/12/19at 12:34; Start 09/25/19 at 11:00; Stop 10/13/19 at 08:56; Status DC Daptomycin 410 mg/ Sodium Chloride 50 ml @ 100 mls/hr Q24H IV Last administered on 09/27/19at 13:33; Start 09/25/19 at 14:00; Stop 09/28/19 at 08:30; Status DC Midazolam HCl (Versed) 2 mg STK-MED ONCE .ROUTE ; Start 09/25/19 at 14:47; Stop 09/25/19 at 14:48; Status DC Fentanyl Citrate (Fentanyl 2ml Vial) 100 mcg STK-MED ONCE .ROUTE ; Start 09/25/19 at 14:47; Stop 09/25/19 at 14:48; Status DC Flumazenil (Romazicon) 0.5 mg STK-MED ONCE IV ; Start 09/25/19 at 14:48; Stop 09/25/19 at 14:48; Status DC Naloxone HCl (Narcan) 0.4 mg STK-MED ONCE .ROUTE ; Start 09/25/19 at 14:48; Stop 09/25/19 at 14:48; Status DC Lidocaine HCl (Lidocaine 1% 20ml Vial) 20 ml STK-MED ONCE .ROUTE ; Start 09/25/19 at 14:48; Stop 09/25/19 at 14:48; Status DC Midazolam HCl (Versed) 2 mg 1X ONCE IV Last administered on 09/25/19at 15:28; Start 09/25/19 at 15:00; Stop 09/25/19 at 15:01; Status DC Fentanyl Citrate (Fentanyl 2ml Vial) 100 mcg 1X ONCE IV Last administered on 09/25/19at 15:28; Start 09/25/19 at 15:00; Stop 09/25/19 at 15:01; Status DC Lidocaine HCl (Lidocaine 1% 20ml Vial) 20 ml 1X ONCE INJ Last administered on 09/25/19at 15:30; Start 09/25/19 at 15:00; Stop 09/25/19 at 15:01; Status DC Sodium Chloride 1,000 ml @ 100 mls/hr Q10H IV Last administered on 10/04/19at 07:30; Start 09/25/19 at 20:00; Stop 10/04/19 at 11:26; Status DC Sodium Bicarbonate (Sodium Bicarb Adult 8.4% Syr) 50 meq 1X ONCE IV Last administered on 09/25/19at 21:47; Start 09/25/19 at 22:00; Stop 09/25/19 at 22:01; Status DC Potassium Acetate 40 meq/Magnesium Sulfate 5 meq/ Multivitamins 10 ml/Chromium/ Copper/Manganese/ Seleni/Zn 1 ml/ Insulin Human Regular 30 unit/ Total Parenteral Nutrition/Amino Acids/Dextrose/ Fat Emulsion Intravenous 1,920 ml @ 80 mls/hr TPN CONT IV Last administered on 09/26/19at 22:28; Start 09/26/19 at 22:00; Stop 09/27/19 at 21:59; Status DC Sodium Chloride 500 ml @ 500 mls/hr 1X ONCE IV Last administered on 09/27/19at 06:39; Start 09/27/19 at 06:45; Stop 09/27/19 at 07:44; Status DC Potassium Acetate 40 meq/Magnesium Sulfate 5 meq/ Multivitamins 10 ml/Chromium/ Copper/Manganese/ Seleni/Zn 1 ml/ Insulin Human Regular 30 unit/ Total Parenteral Nutrition/Amino Acids/Dextrose/ Fat Emulsion Intravenous 1,920 ml @ 80 mls/hr TPN CONT IV Last administered on 09/27/19at 22:03; Start 09/27/19 at 22:00; Stop 09/28/19 at 21:59; Status DC Metoprolol Tartrate (Lopressor Vial) 5 mg PRN Q6HRS PRN IVP HYPERTENSION Last administered on 11/18/19at 11:57; Start 09/28/19 at 09:00 Potassium Acetate 40 meq/Magnesium Sulfate 5 meq/ Multivitamins 10 ml/Chromium/ Copper/Manganese/ Seleni/Zn 1 ml/ Insulin Human Regular 30 unit/ Total Parenteral Nutrition/Amino Acids/Dextrose/ Fat Emulsion Intravenous 1,920 ml @ 80 mls/hr TPN CONT IV Last administered on 09/28/19at 21:26; Start 09/28/19 at 22:00; Stop 09/29/19 at 21:59; Status DC Potassium Acetate 40 meq/Magnesium Sulfate 5 meq/ Multivitamins 10 ml/Chromium/ Copper/Manganese/ Seleni/Zn 1 ml/ Insulin Human Regular 30 unit/ Total Parenteral Nutrition/Amino Acids/Dextrose/ Fat Emulsion Intravenous 1,920 ml @ 80 mls/hr TPN CONT IV Last administered on 09/29/19at 23:23; Start 09/29/19 at 22:00; Stop 09/30/19 at 21:59; Status DC Potassium Acetate 40 meq/Magnesium Sulfate 5 meq/ Multivitamins 10 ml/Chromium/ Copper/Manganese/ Seleni/Zn 1 ml/ Insulin Human Regular 30 unit/ Total Parenteral Nutrition/Amino Acids/Dextrose/ Fat Emulsion Intravenous 1,920 ml @ 80 mls/hr TPN CONT IV Last administered on 09/30/19at 21:35; Start 09/30/19 at 22:00; Stop 10/01/19 at 21:59; Status DC Furosemide (Lasix) 20 mg 1X ONCE IVP Last administered on 10/01/19at 06:26; Start 10/01/19 at 06:15; Stop 10/01/19 at 06:16; Status DC Methylprednisolone Sodium Succinate (SOLU-Medrol 125MG VIAL) 125 mg 1X ONCE IV Last administered on 10/01/19 06:26; Start 10/01/19 at 06:15; Stop 10/01/19 at 06:16; Status DC Albuterol/ Ipratropium (Duoneb) 3 ml Q4HRS NEB Last administered on 11/18/19at 12:39; Start 10/01/19 at 08:00 Fentanyl Citrate 30 ml @ 0 mls/hr CONT PRN IV SEE PROTOCOL Last administered on 10/22/19 08:03; Start 10/01/19 at 06:00; Stop 10/22/19 at 12:42; Status DC Propofol 100 ml @ 0 mls/hr CONT PRN IV SEE PROTOCOL Last administered on 10/08/19at 23:50; Start 10/01/19 at 06:00 Fentanyl Citrate (Fentanyl 2ml Vial) 25 mcg PRN Q1HR PRN IV SEE COMMENTS Last administered on 11/16/19at 11:36; Start 10/01/19 at 06:00 Fentanyl Citrate (Fentanyl 2ml Vial) 50 mcg PRN Q1HR PRN IV SEE COMMENTS Last administered on 11/17/19at 20:50; Start 10/01/19 at 06:00 Chlorhexidine Gluconate (Peridex) 15 ml BID MM ; Start 10/01/19 at 09:00; Stop 10/01/19 at 07:58; Status DC Potassium Acetate 40 meq/Magnesium Sulfate 5 meq/ Multivitamins 10 ml/Chromium/ Copper/Manganese/ Seleni/Zn 1 ml/ Insulin Human Regular 30 unit/ Total Janett ral Nutrition/Amino Acids/Dextrose/ Fat Emulsion Intravenous 1,920 ml @ 80 mls/hr TPN CONT IV Last administered on 10/01/19at 21:19; Start 10/01/19 at 22:00; Stop 10/02/19 at 21:59; Status DC Acetylcysteine (Mucomyst 20% Resp Treatment) 600 mg BID NEB Last administered on 10/07/19at 09:33; Start 10/01/19 at 21:00; Stop 10/07/19 at 10:39; Status DC Magnesium Sulfate 100 ml @ 25 mls/hr 1X ONCE IV Last administered on 10/01/19at 15:48; Start 10/01/19 at 15:45; Stop 10/01/19 at 19:44; Status DC Potassium Acetate 40 meq/Magnesium Sulfate 5 meq/ Multivitamins 10 ml/Chromium/ Copper/Manganese/ Seleni/Zn 1 ml/ Insulin Human Regular 30 unit/ Total Parenteral Nutrition/Amino Acids/Dextrose/ Fat Emulsion Intravenous 1,920 ml @ 80 mls/hr TPN CONT IV Last administered on 10/02/19at 21:35; Start 10/02/19 at 22:00; Stop 10/03/19 at 21:59; Status DC Potassium Chloride/Water 100 ml @ 100 mls/hr Q1H IV Last administered on 10/03/19at 08:31; Start 10/03/19 at 07:00; Stop 10/03/19 at 08:59; Status DC Potassium Acetate 40 meq/Magnesium Sulfate 5 meq/ Multivitamins 10 ml/Chromium/ Copper/Manganese/ Seleni/Zn 1 ml/ Insulin Human Regular 30 unit/ Total Parenteral Nutrition/Amino Acids/Dextrose/ Fat Emulsion Intravenous 1,920 ml @ 80 mls/hr TPN CONT IV Last administered on 10/03/19at 21:54; Start 10/03/19 at 22:00; Stop 10/04/19 at 19:34; Status DC Lidocaine HCl (Buffered Lidocaine 1%) 3 ml STK-MED ONCE .ROUTE ; Start 10/03/19 at 12:14; Stop 10/03/19 at 12:14; Status DC Lidocaine HCl (Buffered Lidocaine 1%) 3 ml 1X ONCE IJ Last administered on 10/03/19at 13:11; Start 10/03/19 at 13:00; Stop 10/03/19 at 13:01; Status DC Magnesium Sulfate 50 ml @ 25 mls/hr 1X ONCE IV ; Start 10/04/19 at 08:15; Stop 10/04/19 at 10:14; Status DC Potassium Acetate 40 meq/Magnesium Sulfate 10 meq/ Multivitamins 10 ml/Chromium/ Copper/Manganese/ Seleni/Zn 1 ml/ Insulin Human Regular 20 unit/ Total Parenteral Nutrition/Amino Acids/Dextrose/ Fat Emulsion Intravenous 1,920 ml @ 80 mls/hr TPN CONT IV Last administered on 10/04/19at 21:32; Start 10/04/19 at 22:00; Stop 10/05/19 at 21:59; Status DC Potassium Chloride/Water 100 ml @ 100 mls/hr Q1H IV Last administered on 10/05/19at 09:12; Start 10/05/19 at 08:00; Stop 10/05/19 at 09:59; Status DC Alteplase, Recombinant (Cathflo For Central Catheter Clearance) 4 mg 1X ONCE INT CAT ; Start 10/05/19 at 09:15; Stop 10/05/19 at 09:16; Status UNV Alteplase, Recombinant (Cathflo For Central Catheter Clearance) 4 mg 1X ONCE INT CAT ; Start 10/05/19 at 09:15; Stop 10/05/19 at 09:16; Status UNV Alteplase, Recombinant (Cathflo For Central Catheter Clearance) 4 mg 1X ONCE INT CAT ; Start 10/05/19 at 09:15; Stop 10/05/19 at 09:16; Status UNV Alteplase, Recombinant 4 mg/ Sodium Chloride 20 ml @ 20 mls/hr 1X ONCE IV Last administered on 10/05/19at 10:10; Start 10/05/19 at 10:00; Stop 10/05/19 at 10:59; Status DC Alteplase, Recombinant 4 mg/ Sodium Chloride 20 ml @ 20 mls/hr 1X ONCE IV Last administered on 10/05/19at 10:09; Start 10/05/19 at 10:00; Stop 10/05/19 at 10:59; Status DC Alteplase, Recombinant 4 mg/ Sodium Chloride 20 ml @ 20 mls/hr 1X ONCE IV Last administered on 10/05/19at 10:09; Start 10/05/19 at 10:00; Stop 10/05/19 at 10:59; Status DC Potassium Acetate 60 meq/Magnesium Sulfate 10 meq/ Multivitamins 10 ml/Chromium/ Copper/Manganese/ Seleni/Zn 1 ml/ Insulin Human Regular 20 unit/ Total Parenteral Nutrition/Amino Acids/Dextrose/ Fat Emulsion Intravenous 1,920 ml @ 80 mls/hr TPN CONT IV Last administered on 10/05/19at 21:55; Start 10/05/19 at 22:00; Stop 10/06/19 at 21:59; Status DC Albumin Human 500 ml @ 125 mls/hr 1X ONCE IV Last administered on 10/06/19at 12:01; Start 10/06/19 at 11:15; Stop 10/06/19 at 15:14; Status DC Sodium Chloride 500 ml @ 500 mls/hr 1X ONCE IV Last administered on 10/06/19at 13:50; Start 10/06/19 at 11:15; Stop 10/06/19 at 12:14; Status DC Potassium Acetate 60 meq/Magnesium Sulfate 14 meq/ Multivitamins 10 ml/Chromium/ Copper/Manganese/ Seleni/Zn 1 ml/ Insulin Human Regular 20 unit/ Total Parenteral Nutrition/Amino Acids/Dextrose/ Fat Emulsion Intravenous 1,920 ml @ 80 mls/hr TPN CONT IV Last administered on 10/06/19at 22:26; Start 10/06/19 at 22:00; Stop 10/07/19 at 21:59; Status DC Ciprofloxacin/ Dextrose 200 ml @ 200 mls/hr Q12HR IV Last administered on 10/13/19at 08:27; Start 10/06/19 at 21:00; Stop 10/13/19 at 08:56; Status DC Albumin Human 250 ml @ 62.5 mls/hr 1X ONCE IV Last administered on 10/07/19at 11:09; Start 10/07/19 at 11:00; Stop 10/07/19 at 14:59; Status DC Furosemide (Lasix) 20 mg 1X ONCE IVP Last administered on 10/07/19at 14:52; Start 10/07/19 at 10:45; Stop 10/07/19 at 10:49; Status DC Potassium Acetate 60 meq/Magnesium Sulfate 14 meq/ Multivitamins 10 ml/Chromium/ Copper/Manganese/ Seleni/Zn 1 ml/ Insulin Human Regular 15 unit/ Total Parenteral Nutrition/Amino Acids/Dextrose/ Fat Emulsion Intravenous 1,920 ml @ 80 mls/hr TPN CONT IV Last administered on 10/07/19at 22:08; Start 10/07/19 at 22:00; Stop 10/08/19 at 21:59; Status DC Potassium Acetate 60 meq/Magnesium Sulfate 14 meq/ Multivitamins 10 ml/Chromium/ Copper/Manganese/ Seleni/Zn 1 ml/ Insulin Human Regular 15 unit/ Total Parenteral Nutrition/Amino Acids/Dextrose/ Fat Emulsion Intravenous 1,920 ml @ 80 mls/hr TPN CONT IV Last administered on 10/08/19at 22:12; Start 10/08/19 at 22:00; Stop 10/09/19 at 21:59; Status DC Potassium Acetate 60 meq/Magnesium Sulfate 14 meq/ Multivitamins 10 ml/Chromium/ Copper/Manganese/ Seleni/Zn 1 ml/ Insulin Human Regular 15 unit/ Total Parenteral Nutrition/Amino Acids/Dextrose/ Fat Emulsion Intravenous 1,920 ml @ 80 mls/hr TPN CONT IV Last administered on 10/09/19at 22:22; Start 10/09/19 at 22:00; Stop 10/10/19 at 21:59; Status DC Furosemide (Lasix) 20 mg 1X ONCE IVP Last administered on 10/10/19at 11:07; Start 10/10/19 at 10:30; Stop 10/10/19 at 10:34; Status DC Potassium Acetate 60 meq/Magnesium Sulfate 14 meq/ Multivitamins 10 ml/Chromium/ Copper/Manganese/ Seleni/Zn 1 ml/ Insulin Human Regular 15 unit/ Sodium Chloride 20 meq/Total Parenteral Nutrition/Amino Acids/Dextrose/ Fat Emulsion Intravenous 1,920 ml @ 80 mls/hr TPN CONT IV Last administered on 10/10/19at 21:54; Start 10/10/19 at 22:00; Stop 10/11/19 at 21:59; Status DC Potassium Acetate 30 meq/Magnesium Sulfate 14 meq/ Multivitamins 10 ml/Chromium/ Copper/Manganese/ Seleni/Zn 1 ml/ Insulin Human Regular 15 unit/ Sodium Chloride 20 meq/Potassium Chloride 30 meq/ Total Parenteral Nutrition/Amino Acids/Dextrose/ Fat Emulsion Intravenous 1,920 ml @ 80 mls/hr TPN CONT IV Last administered on 10/11/19at 21:46; Start 10/11/19 at 22:00; Stop 10/12/19 at 21:59; Status DC Sodium Chloride 80 meq/Potassium Chloride 30 meq/ Potassium Acetate 30 meq/Magnesium Sulfate 14 meq/ Multivitamins 10 ml/Chromium/ Copper/Manganese/ Seleni/Zn 1 ml/ Insulin Human Regular 15 unit/ Total Parenteral Nutrition/Amino Acids/Dextrose/ Fat Emulsion Intravenous 1,920 ml @ 80 mls/hr TPN CONT IV Last administered on 10/12/19at 22:33; Start 10/12/19 at 22:00; Stop 10/13/19 at 21:59; Status DC Furosemide (Lasix) 40 mg 1X ONCE IVP Last administered on 10/12/19at 16:27; Start 10/12/19 at 15:30; Stop 10/12/19 at 15:33; Status DC Albumin Human 250 ml @ 62.5 mls/hr 1X ONCE IV Last administered on 10/12/19at 16:27; Start 10/12/19 at 15:30; Stop 10/12/19 at 19:29; Status DC Sodium Chloride 80 meq/Potassium Chloride 30 meq/ Potassium Acetate 30 meq/Magnesium Sulfate 14 meq/ Multivitamins 10 ml/Chromium/ Copper/Manganese/ Seleni/Zn 1 ml/ Insulin Human Regular 15 unit/ Total Parenteral Nutrition/Amino Acids/Dextrose/ Fat Emulsion Intravenous 1,920 ml @ 80 mls/hr TPN CONT IV Last administered on 10/13/19at 22:25; Start 10/13/19 at 22:00; Stop 10/14/19 at 21:59; Status DC Sodium Chloride 80 meq/Potassium Chloride 30 meq/ Potassium Acetate 30 m eq/Magnesium Sulfate 14 meq/ Multivitamins 10 ml/Chromium/ Copper/Manganese/ Seleni/Zn 1 ml/ Insulin Human Regular 15 unit/ Total Parenteral Nutrition/Amino Acids/Dextrose/ Fat Emulsion Intravenous 1,920 ml @ 80 mls/hr TPN CONT IV Last administered on 10/14/19at 21:32; Start 10/14/19 at 22:00; Stop 10/15/19 at 21:59; Status DC Sodium Chloride 80 meq/Potassium Chloride 30 meq/ Potassium Acetate 30 meq/Magnesium Sulfate 14 meq/ Multivitamins 10 ml/Chromium/ Copper/Manganese/ Seleni/Zn 1 ml/ Insulin Human Regular 15 unit/ Total Parenteral Nutrition/Amino Acids/Dextrose/ Fat Emulsion Intravenous 1,920 ml @ 80 mls/hr TPN CONT IV [facility] administered on 10/15/19at 21:53; Start 10/15/19 at 22:00; Stop 10/16/19 at 21:59; Status DC Acetylcysteine (Mucomyst 20% Resp Treatment) 600 mg RTBID NEB Last administered on 11/18/19at 08:27; Start 10/15/19 at 12:00 Sodium Chloride 80 meq/Potassium Chloride 30 meq/ Potassium Acetate 30 meq/Magnesium Sulfate 14 meq/ Multivitamins 10 ml/Chromium/ Copper/Manganese/ Seleni/Zn 1 ml/ Insulin Human Regular 15 unit/ Total Parenteral Nutrition/Amino Acids/Dextrose/ Fat Emulsion Intravenous 1,920 ml @ 80 mls/hr TPN CONT IV Last administered on 10/16/19at 22:06; Start 10/16/19 at 22:00; Stop 10/17/19 at 21:59; Status DC Meropenem 500 mg/ Sodium Chloride 50 ml @ 100 mls/hr Q6HRS IV Last administered on 11/08/19at 06:15; Start 10/16/19 at 18:00; Stop 11/08/19 at 08:23; Status DC Daptomycin 500 mg/ Sodium Chloride 50 ml @ 100 mls/hr Q24H IV Last administered on 10/24/19at 21:47; Start 10/16/19 at 19:00; Stop 10/25/19 at 08:13; Status DC Sodium Chloride 80 meq/Potassium Chloride 30 meq/ Potassium Acetate 30 meq/Ma gnesium Sulfate 14 meq/ Multivitamins 10 ml/Chromium/ Copper/Manganese/ Seleni/Zn 1 ml/ Insulin Human Regular 15 unit/ Total Parenteral Nutrition/Amino Acids/Dextrose/ Fat Emulsion Intravenous 1,920 ml @ 80 mls/hr TPN CONT IV Last administered on 10/17/19at 22:09; Start 10/17/19 at 22:00; Stop 10/18/19 at 21:59; Status DC Heparin Sodium (Porcine) 1000 unit/Sodium Chloride 1,001 ml @ 1,001 mls/hr 1X ONCE IRR ; Start 10/18/19 at 06:00; Stop 10/18/19 at 06:59; Status DC Propofol (Diprivan) 200 mg STK-MED ONCE IV ; Start 10/18/19 at 07:44; Stop 10/18/19 at 07:44; Status DC Lidocaine HCl (Lidocaine Pf 2% Vial) 5 ml STK-MED ONCE .ROUTE ; Start 10/18/19 at 07:44; Stop 10/18/19 at 07:44; Status DC Fentanyl Citrate (Fentanyl 2ml Vial) 100 mcg STK-MED ONCE .ROUTE ; Start 10/18/19 at 07:44; Stop 10/18/19 at 07:44; Status DC Rocuronium Hurst (Zemuron) 100 mg STK-MED ONCE .ROUTE ; Start 10/18/19 at 07:44; Stop 10/18/19 at 07:44; Status DC Micafungin Sodium 100 mg/Dextrose 100 ml @ 100 mls/hr Q24H IV Last adm inistered on 11/18/19at 08:38; Start 10/18/19 at 08:30 Bupivacaine HCl/ Epinephrine Bitart (Sensorcain-Epi 0.5%-1:[id number] Mpf) 30 ml STK-MED ONCE .ROUTE ; Start 10/18/19 at 08:34; Stop 10/18/19 at 08:35; Status DC Iohexol (Omnipaque 300 Mg/ml) 50 ml STK-MED ONCE .ROUTE Last administered on 10/18/19at 13:30; Start 10/18/19 at 08:35; Stop 10/18/19 at 08:35; Status DC Sodium Chloride 80 meq/Potassium Chloride 30 meq/ Potassium Acetate 30 meq/Magnesium Sulfate 14 meq/ Multivitamins 10 ml/Chromium/ Copper/Manganese/ Seleni/Zn 1 ml/ Insulin Human Regular 15 unit/ Total Parenteral Nutrition/Amino Acids/Dextrose/ Fat Emulsion Intravenous 1,920 ml @ 80 mls/hr TPN CONT IV Last administered on 10/19/19at 01:22; Start 10/18/19 at 22:00; Stop 10/19/19 at 21:59; Status DC Phenylephrine HCl (Brayden-Synephrine Inj) 10 mg STK-MED ONCE .ROUTE ; Start 10/18/19 at 10:15; Stop 10/18/19 at 10:15; Status DC Desflurane (Suprane) 90 ml STK-MED ONCE IH ; Start 10/18/19 at 10:18; Stop 10/18/19 at 10:19; Status DC Albumin Human 500 ml @ As Directed STK-MED ONCE IV ; Start 10/18/19 at 11:06; Stop 10/18/19 at 11:06; Status DC Vasopressin (Vasostrict) 20 unit STK-MED ONCE .ROUTE ; Start 10/18/19 at 12:23; Stop 10/18/19 at 12:23; Status DC Phenylephrine HCl (Brayden-Synephrine Inj) 10 mg STK-MED ONCE .ROUTE ; Start 10/18/19 at 13:33; Stop 10/18/19 at 13:33; Status DC Phenylephrine HCl (Brayden-Synephrine Inj) 10 mg STK-MED ONCE .ROUTE ; Start 10/18/19 at 13:33; Stop 10/18/19 at 13:33; Status DC Ondansetron HCl (Zofran) 4 mg STK-MED ONCE .ROUTE ; Start 10/18/19 at 13:33; Stop 10/18/19 at 13:33; Status DC Enoxaparin Sodium (Lovenox 40mg Syringe) 40 mg Q24H SQ Last administered on 11/18/19at 08:38; Start 10/19/19 at 08:00 Sodium Chloride (Normal Saline Flush) 3 ml QSHIFT PRN IV AFTER MEDS AND BLOOD DRAWS; Start 10/18/19 at 14:45 Naloxone HCl (Narcan) 0.4 mg PRN Q2MIN PRN IV SEE INSTRUCTIONS; Start 10/18/19 at 14:45 Sodium Chloride 1,000 ml @ 25 mls/hr Q24H IV Last administered on 11/15/19at 20:30; Start 10/18/19 at 14:33 Morphine Sulfate (Morphine Sulfate) 1 mg PRN Q1HR PRN IV PAIN Last administered on 11/12/19at 18:28; Start 10/18/19 at 14:45 Midazolam HCl 100 mg/Sodium Chloride 100 ml @ 1 mls/hr CONT PRN IV SEE I/O RECORD Last administered on 10/21/19at 18:48; Start 10/18/19 at 14:45 Phenylephrine HCl (PHENYLEPHRINE in 0.9% NACL PF) 1 mg STK-MED ONCE IV ; Start 10/18/19 at 14:44; Stop 10/18/19 at 14:45; Status DC Ephedrine Sulfate (ePHEDrine PF IN SALINE SYRINGE) 50 mg STK-MED ONCE IV ; Start 10/18/19 at 14:45; Stop 10/18/19 at 14:45; Status DC Vasopressin 20 unit/Dextrose 101 ml @ 12 mls/hr CONT PRN IV SEE I/O RECORD Last administered on 10/25/19at 04:17; Start 10/18/19 at 15:30 Sodium Chloride 1,000 ml @ 1,000 mls/hr 1X ONCE IV Last administered on 10/18/19at 15:42; Start 10/18/19 at 15:45; Stop 10/18/19 at 16:44; Status DC Albumin Human 500 ml @ 125 mls/hr 1X ONCE IV ; Start 10/18/19 at 16:00; Stop 10/18/19 at 19:59; Status DC Albumin Human 500 ml @ 125 mls/hr PRN Q1HR PRN IV PER PROTOCOL; Start 10/18/19 at 15:45 Magnesium Sulfate 50 ml @ 25 mls/hr 1X ONCE IV Last administered on 10/18/19at 17:02; Start 10/18/19 at 16:30; Stop 10/18/19 at 18:29; Status DC Sodium Bicarbonate (Sodium Bicarb Adult 8.4% Syr) 50 meq STK-MED ONCE .ROUTE ; Start 10/18/19 at 16:20; Stop 10/18/19 at 16:20; Status DC Sodium Bicarbonate (Sodium Bicarb Adult 8.4% Syr) 100 meq 1X ONCE IV Last administered on 10/18/19at 17:07; Start 10/18/19 at 16:30; Stop 10/18/19 at 16:31; Status DC Sodium Bicarbonate 150 meq/Dextrose 1,150 ml @ 75 mls/hr 1X ONCE IV Last administered on 10/18/19at 20:02; Start 10/18/19 at 16:30; Stop 10/19/19 at 07:49; Status DC Sodium Chloride 80 meq/Potassium Chloride 30 meq/ Potassium Acetate 30 meq/Magnesium Sulfate 14 meq/ Multivitamins 10 ml/Chromium/ Copper/Manganese/ Seleni/Zn 1 ml/ Insulin Human Regular 15 unit/ Total Parenteral Nutrition/Amino Acids/Dextrose/ Fat Emulsion Intravenous 1,920 ml @ 80 mls/hr TPN CONT IV Last administered on 10/19/19at 23:05; Start 10/19/19 at 22:00; Stop 10/20/19 at 21:59; Status DC Sodium Chloride 100 meq/Potassium Chloride 30 meq/ Potassium Acetate 30 meq/Magnesium Sulfate 12 meq/ Multivitamins 10 ml/Chromium/ Copper/Manganese/ Se dinorah/Zn 1 ml/ Insulin Human Regular 15 unit/ Total Parenteral Nutrition/Amino Acids/Dextrose/ Fat Emulsion Intravenous 1,920 ml @ 80 mls/hr TPN CONT IV Last administered on 10/20/19at 21:52; Start 10/20/19 at 22:00; Stop 10/21/19 at 21:59; Status DC Sodium Chloride 100 meq/Potassium Chloride 30 meq/ Potassium Acetate 30 meq/Magnesium Sulfate 12 meq/ Multivitamins 10 ml/Chromium/ Copper/Manganese/ Seleni/Zn 1 ml/ Insulin Human Regular 15 unit/ Total Parenteral Nutrition/Amino Acids/Dextrose/ Fat Emulsion Intravenous 1,920 ml @ 80 mls/hr TPN CONT IV Last administered on 10/21/19at 21:46; Start 10/21/19 at 22:00; Stop 10/22/19 at 21:59; Status DC Sodium Chloride 100 meq/Potassium Chloride 30 meq/ Potassium Acetate 30 meq/Magnesium Sulfate 12 meq/ Multivitamins 10 ml/Chromium/ Copper/Manganese/ Seleni/Zn 1 ml/ Insulin Human Regular 15 unit/ Total Parenteral Nutrition/Amino Acids/Dextrose/ Fat Emulsion Intravenous 1,800 ml @ 75 mls/hr TPN CONT IV Last administered on 10/22/19at 22:04; Start 10/22/19 at 22:00; Stop 10/23/19 at 21:59; Status DC Fentanyl Citrate 55 ml @ 0 mls/hr CONT PRN IV SEE COMMENTS Last administered on 10/24/19at 23:55; Start 10/22/19 at 13:00; Stop 10/27/19 at 17:28; Status DC Sodium Chloride 100 meq/Potassium Chloride 30 meq/ Potassium Acetate 30 meq/Magnesium Sulfate 12 meq/ Multivitamins 10 ml/Chromium/ Copper/Manganese/ Seleni/Zn 1 ml/ Insulin Human Regular 15 unit/ Total Parenteral Nutrition/Amino Acids/Dextrose/ Fat Emulsion Intravenous 1,680 ml @ 70 mls/hr TPN CONT IV Last administered on 10/23/19at 21:23; Start 10/23/19 at 22:00; Stop 10/24/19 at 21:59; Status DC Sodium Chloride 110 meq/Potassium Chloride 30 meq/ Potassium Acetate 30 meq/Magnesium Sulfate 15 meq/ Multivitamins 10 ml/Chromium/ Copper/Manganese/ Seleni/Zn 1 ml/ Insulin Human Regular 15 unit/ Total Parenteral Nutrition/Amino Acids/Dextrose/ Fat Emulsion Intravenous 1,680 ml @ 70 mls/hr TPN CONT IV [facility] administered on 10/24/19at 21:48; Start 10/24/19 at 22:00; Stop 10/25/19 at 21:59; Status DC Sodium Chloride 110 meq/Potassium Chloride 30 meq/ Potassium Acetate 30 meq/Magnesium Sulfate 15 meq/ Multivitamins 10 ml/Chromium/ Copper/Manganese/ Seleni/Zn 1 ml/ Insulin Human Regular 15 unit/ Total Parenteral Nutrition/Amino Acids/Dextrose/ Fat Emulsion Intravenous 1,680 ml @ 70 mls/hr TPN CONT IV Last administered on 10/25/19at 21:33; Start 10/25/19 at 22:00; Stop 10/26/19 at 21:59; Status DC Sodium Chloride 110 meq/Potassium Chloride 30 meq/ Potassium Acetate 30 meq/Magnesium Sulfate 15 meq/ Multivitamins 10 ml/Chromium/ Copper/Manganese/ Seleni/Zn 1 ml/ Insulin Human Regular 15 unit/ Total Parenteral Nutrition/Amino Acids/Dextrose/ Fat Emulsion Intravenous 1,680 ml @ 70 mls/hr TPN CONT IV Last administered on 10/26/19at 21:51; Start 10/26/19 at 22:00; Stop 10/27/19 at 21:59; Status DC Sodium Chloride 90 meq/Potassium Chloride 30 meq/ Potassium Acetate 30 meq/Magnesium Sulfate 15 meq/ Multivitamins 10 ml/Chromium/ Copper/Manganese/ Seleni/Zn 1 ml/ Insulin Human Regular 15 unit/ Total Parenteral Nutrition/Amino Acids/Dextrose/ Fat Emulsion Intravenous 1,680 ml @ 70 mls/hr TPN CONT IV Last administered on 10/27/19at 22:38; Start 10/27/19 at 22:00; Stop 10/28/19 at 21:59; Status DC Fentanyl Citrate 30 ml @ 0 mls/hr CONT PRN IV SEE I/O RECORD; Start 10/27/19 at 17:30 Fentanyl (Duragesic 12mcg/ Hr Patch) 1 patch Q3DAYS TD Last administered on 11/18/19at 08:40; Start 10/28/19 at 09:00 Sodium Chloride 90 meq/Potassium Chloride 30 meq/ Potassium Acetate 30 meq/Magnesium Sulfate 15 meq/ Multivitamins 10 ml/Chromium/ Copper/Manganese/ Seleni/Zn 1 ml/ Insulin Human Regular 15 unit/ Total Parenteral Nutrition/Amino Acids/Dextrose/ Fat Emulsion Intravenous 1,680 ml @ 70 mls/hr TPN CONT IV Last administered on 10/28/19at 21:59; Start 10/28/19 at 22:00; Stop 10/29/19 at 21:59; Status DC Sodium Chloride 90 meq/Potassium Chloride 30 meq/ Potassium Acetate 30 meq/Magnesium Sulfate 15 meq/ Multivitamins 10 ml/Chromium/ Copper/Manganese/ Seleni/Zn 1 ml/ Insulin Human Regular 15 unit/ Total Parenteral Nutrition/Amino Acids/Dextrose/ Fat Emulsion Intravenous 1,680 ml @ 70 mls/hr TPN CONT IV Last administered on 10/29/19at 21:35; Start 10/29/19 at 22:00; Stop 10/30/19 at 21:59; Status DC Vancomycin HCl (Vanco Per Pharmacy) 1 each PRN DAILY PRN MC SEE COMMENTS Last administered on 11/01/19at 02:46; Start 10/30/19 at 09:15; Stop 11/02/19 at 07:41; Status DC Ciprofloxacin/ Dextrose 200 ml @ 200 mls/hr Q12HR IV Last administered on at 21:02; Start 10/30/19 at 10:00; Stop 11/08/19 at 08:20; Status DC Vancomycin HCl 2 gm/Sodium Chloride 500 ml @ 250 mls/hr 1X ONCE IV Last administered on 10/30/19at 10:34; Start 10/30/19 at 10:00; Stop 10/30/19 at 11:59; Status DC Sodium Chloride 90 meq/Potassium Chloride 30 meq/ Potassium Acetate 30 meq/Magnesium Sulfate 15 meq/ Multivitamins 10 ml/Chromium/ Copper/Manganese/ Seleni/Zn 1 ml/ Insulin Human Regular 15 unit/ Total Parenteral Nutrition/Amino Acids/Dextrose/ Fat Emulsion Intravenous 1,680 ml @ 70 mls/hr TPN CONT IV Last administered on 10/30/19at 22:02; Start 10/30/19 at 22:00; Stop 10/31/19 at 21:59; Status DC Diphenhydramine HCl (Benadryl) 25 mg 1X ONCE IVP Last administered on 10/30/19at 14:26; Start 10/30/19 at 14:30; Stop 10/30/19 at 14:31; Status DC Vancomycin HCl 1.5 gm/Sodium Chloride 500 ml @ 250 mls/hr Q8H IV Last administered on 10/31/19at 03:08; Start 10/30/19 at 18:30; Stop 10/31/19 at 12:24; Status DC Vancomycin HCl (Vancomycin Trough Level) 1 each 1X ONCE MC Last administered on 10/31/19at 10:00; Start 10/31/19 at 10:00; Stop 10/31/19 at 10:01; Status DC Sodium Chloride 90 meq/Potassium Chloride 30 meq/ Potassium Acetate 30 meq/Magnesium Sulfate 15 meq/ Multivitamins 10 ml/Chromium/ Copper/Manganese/ Seleni/Zn 1 ml/ Insulin Human Regular 15 unit/ Total Parenteral Nutrition/Amino Acids/Dextrose/ Fat Emulsion Intravenous 1,680 ml @ 70 mls/hr TPN CONT IV Last administered on 10/31/19at 22:13; Start 10/31/19 at 22:00; Stop 11/01/19 at 21:59; Status DC Vancomycin HCl (Vancomycin Random Level) 1 each 1X ONCE MC Last administered on 11/01/19at 01:00; Start 11/01/19 at 01:00; Stop 11/01/19 at 01:01; Status DC Vancomycin HCl 1.5 gm/Sodium Chloride 500 ml @ 250 mls/hr Q12H IV Last administered on 11/01/19at 22:07; Start 11/01/19 at 10:00; Stop 11/02/19 at 07:41; Status DC Vancomycin HCl (Vancomycin Trough Level) 1 each 1X ONCE MC ; Start 11/02/19 at 09:30; Stop 11/02/19 at 09:31; Status Cancel Sodium Chloride 90 meq/Potassium Chloride 30 meq/ Potassium Acetate 30 m eq/Magnesium Sulfate 15 meq/ Multivitamins 10 ml/Chromium/ Copper/Manganese/ Seleni/Zn 1 ml/ Insulin Human Regular 15 unit/ Total Parenteral Nutrition/Amino Acids/Dextrose/ Fat Emulsion Intravenous 1,680 ml @ 70 mls/hr TPN CONT IV Last administered on 11/01/19at 22:08; Start 11/01/19 at 22:00; Stop 11/02/19 at 21:59; Status DC Alteplase, Recombinant (Cathflo For Central Catheter Clearance) 1 mg 1X ONCE INT CAT Last administered on 11/01/19at 11:49; Start 11/01/19 at 11:00; Stop 11/01/19 at 11:01; Status DC Daptomycin 500 mg/ Sodium Chloride 50 ml @ 100 mls/hr Q24H IV Last administered on 11/11/19at 08:25; Start 11/02/19 at 09:00; Stop 11/11/19 at 08:38; Status DC Sodium Chloride 90 meq/Potassium Chloride 30 meq/ Potassium Acetate 30 meq/Magnesium Sulfate 15 meq/ Multivitamins 10 ml/Chromium/ Copper/Manganese/ Seleni/Zn 1 ml/ Insulin Human Regular 15 unit/ Total Parenteral Nutrition/Amino Acids/Dextrose/ Fat Emulsion Intravenous 1,680 ml @ 70 mls/hr TPN CONT IV Last administered on 11/02/19at 22:55; Start 11/02/19 at 22:00; Stop 11/03/19 at 21:59; Status DC Sodium Chloride 90 meq/Potassium Chloride 30 meq/ Potassium Acetate 30 meq/Magnesium Sulfate 15 meq/ Multivitamins 10 ml/Chromium/ Copper/Manganese/ Seleni/Zn 1 ml/ Insulin Human Regular 15 unit/ Total Parenteral Nutrition/Amino Acids/Dextrose/ Fat Emulsion Intravenous 1,680 ml @ 70 mls/hr TPN CONT IV Last administered on 11/03/19at 22:06; Start 11/03/19 at 22:00; Stop 11/04/19 at 21:59; Status DC Diphenhydramine HCl (Benadryl) 50 mg STK-MED ONCE .ROUTE ; Start 11/03/19 at 18:34; Stop 11/03/19 at 18:35; Status DC Diphenhydramine HCl (Benadryl) 25 mg 1X ONCE IM ; Start 11/03/19 at 18:45; Stop 11/03/19 at 18:46; Status DC Diphenhydramine HCl (Benadryl) 25 mg 1X ONCE IVP Last administered on 10/18 10/07at 18:56; Start 11/03/19 at 19:00; Stop 11/03/19 at 19:01; Status DC Alprazolam (Xanax) 0.5 mg PRN TID PRN PO ANXIETY / AGITATION Last administered on 11/10/19at 11:49; Start 11/04/19 at 08:00; Stop 11/10/19 at 15:54; Status DC Sodium Chloride 110 meq/Potassium Chloride 30 meq/ Potassium Acetate 30 meq/Magnesium Sulfate 15 meq/ Multivitamins 10 ml/Chromium/ Copper/Manganese/ Seleni/Zn 1 ml/ Insulin Human Regular 15 unit/ Total Parenteral Nutrition/Amino Acids/Dextrose/ Fat Emulsion Intravenous 1,680 ml @ 70 mls/hr TPN CONT IV Last administered on 11/04/19at 21:21; Start 11/04/19 at 22:00; Stop 11/05/19 at 21:59; Status DC Sodium Chloride 110 meq/Potassium Chloride 30 meq/ Potassium Acetate 30 meq/Magnesium Sulfate 15 meq/ Multivitamins 10 ml/Chromium/ Copper/Manganese/ Seleni/Zn 1 ml/ Insulin Human Regular 15 unit/ Total Parenteral Nutrition/Amino Acids/Dextrose/ Fat Emulsion Intravenous 1,680 ml @ 70 mls/hr TPN CONT IV Last administered on 11/05/19at 22:01; Start 11/05/19 at 22:00; Stop 11/06/19 at 21:59; Status DC Alteplase, Recombinant (Cathflo For Central Catheter Clearance) 1 mg 1X ONCE INT CAT Last administered on 11/06/19at 08:23; Start 11/06/19 at 08:15; Stop 11/06/19 at 08:16; Status DC Sodium Chloride 110 meq/Sodium Phosphate 10 mmol/ Potassium Chloride 30 meq/ Potassium Acetate 30 meq/Magnesium Sulfate 15 meq/ Multivitamins 10 ml/Chromium/ Copper/Manganese/ Seleni/Zn 1 ml/ Insulin Human Regular 15 unit/ Total Parenteral Nutrition/Amino Acids/Dextrose/ Fat Emulsion Intravenous 1,680 ml @ 70 mls/hr TPN CONT IV Last administered on 11/06/19at 22:03; Start 11/06/19 at 22:00; Stop 11/07/19 at 21:59; Status DC Sodium Chloride 120 meq/Sodium Phosphate 10 mmol/ Potassium Chloride 30 meq/ Potassium Acetate 30 meq/Magnesium Sulfate 15 meq/ Multivitamins 10 ml/Chromium/ Copper/Manganese/ Seleni/Zn 1 ml/ Insulin Human Regular 15 unit/ Total Parenteral Nutrition/Amino Acids/Dextrose/ Fat Emulsion Intravenous 1,680 ml @ 70 mls/hr TPN CONT IV Last administered on 11/07/19at 22:08; Start 11/07/19 at 22:00; Stop 11/08/19 at 21:59; Status DC Ceftazidime/ Avibactam 2.5 gm/ Sodium Chloride 100 ml @ 50 mls/hr Q8HRS IV Last administered on 11/09/19at 05:32; Start 11/08/19 at 14:00; Stop 11/09/19 at 07:48; Status DC Alteplase, Recombinant (Cathflo For Central Catheter Clearance) 1 mg 1X ONCE INT CAT Last administered on 11/08/19at 09:30; Start 11/08/19 at 09:30; Stop 11/08/19 at 09:31; Status DC Sodium Chloride 120 meq/Sodium Phosphate 10 mmol/ Potassium Chloride 30 meq/ Potassium Acetate 30 meq/Magnesium Sulfate 15 meq/ Multivitamins 10 ml/Chromium/ Copper/Manganese/ Seleni/Zn 1 ml/ Insulin Human Regular 15 unit/ Total Parenter al Nutrition/Amino Acids/Dextrose/ Fat Emulsion Intravenous 1,680 ml @ 70 mls/hr TPN CONT IV Last administered on 11/08/19at 22:11; Start 11/08/19 at 22:00; Stop 11/09/19 at 21:59; Status DC Iohexol (Omnipaque 300 Mg/ml) 75 ml 1X ONCE IV Last administered on 11/08/19at 11:30; Start 11/08/19 at 11:30; Stop 11/08/19 at 11:31; Status DC Info (CONTRAST GIVEN -- Rx MONITORING) 1 each PRN DAILY PRN MC SEE COMMENTS; Start 11/08/19 at 11:45; Stop 11/10/19 at 11:44; Status DC Alteplase, Recombinant (Cathflo For Central Catheter Clearance) 1 mg 1X ONCE INT CAT Last administered on 11/08/19at 12:17; Start 11/08/19 at 12:00; Stop 11/08/19 at 12:01; Status DC Cefepime HCl (Maxipime) 2 gm Q12HR IVP Last administered on 11/09/19at 20:53; Start 11/09/19 at 09:00; Stop 11/10/19 at 07:30; Status DC Sodium Chloride 120 meq/Sodium Phosphate 10 mmol/ Potassium Chloride 30 meq/ Potassium Acetate 30 meq/Magnesium Sulfate 15 meq/ Multivitamins 10 ml/Chromium/ Copper/Manganese/ Seleni/Zn 1 ml/ Insulin Human Regular 15 unit/ Total Parenteral Nutrition/Amino Acids/Dextrose/ Fat Emulsion Intravenous 1,680 ml @ 70 mls/hr TPN CONT IV Last administered on 11/09/19at 21:25; Start 11/09/19 at 22:00; Stop 11/10/19 at 21:59; Status DC Ceftazidime/ Avibactam 2.5 gm/ Sodium Chloride 250 ml @ 125 mls/hr Q8HRS IV Last administered on 11/18/19at 05:02; Start 11/10/19 at 08:00 Sodium Chloride 120 meq/Sodium Phosphate 10 mmol/ Potassium Chloride 30 meq/ Potassium Acetate 30 meq/Magnesium Sulfate 15 meq/ Multivitamins 10 ml/Chromium/ Copper/Manganese/ Seleni/Zn 1 ml/ Insulin Human Regular 15 unit/ Total Parenteral Nutrition/Amino Acids/Dextrose/ Fat Emulsion Intravenous 1,680 ml @ 70 mls/hr TPN CONT IV Last administered on 11/10/19at 22:35; Start 11/10/19 at 22:00; Stop 11/11/19 at 21:59; Status DC Alprazolam (Xanax) 0.5 mg PRN QID PRN PO ANXIETY / AGITATION Last administered on 11/14/19at 14:21; Start 11/10/19 at 16:00 Acetaminophen/ Hydrocodone Bitart (Lortab 5/325) 1 tab PRN Q4HRS PRN PO PAIN Last administered on 11/11/19at 19:34; Start 11/10/19 at 16:00 Sodium Chloride 120 meq/Sodium Phosphate 10 mmol/ Potassium Chloride 30 meq/ Potassium Acetate 30 meq/Magnesium Sulfate 15 meq/ Multivitamins 10 ml/Chromium/ Copper/Manganese/ Seleni/Zn 1 ml/ Insulin Human Regular 15 unit/ Total Janett ral Nutrition/Amino Acids/Dextrose/ Fat Emulsion Intravenous 1,680 ml @ 70 mls/hr TPN CONT IV Last administered on 11/11/19at 21:50; Start 11/11/19 at 22:00; Stop 11/12/19 at 21:59; Status DC Sodium Chloride 120 meq/Sodium Phosphate 10 mmol/ Potassium Chloride 30 meq/ Potassium Acetate 30 meq/Magnesium Sulfate 15 meq/ Multivitamins 10 ml/Chromium/ Copper/Manganese/ Seleni/Zn 1 ml/ Insulin Human Regular 15 unit/ Total Parenteral Nutrition/Amino Acids/Dextrose/ Fat Emulsion Intravenous 1,680 ml @ 70 mls/hr TPN CONT IV Last administered on 11/12/19at 22:14; Start 11/12/19 at 22:00; Stop 11/13/19 at 21:59; Status DC Daptomycin 500 mg/ Sodium Chloride 50 ml @ 100 mls/hr Q24H IV Last administered on 11/18/19at 09:53; Start 11/13/19 at 09:00 Sodium Chloride 120 meq/Sodium Phosphate 10 mmol/ Potassium Chloride 30 meq/ Potassium Acetate 30 meq/Magnesium Sulfate 15 meq/ Multivitamins 10 ml/Chromium/ Copper/Manganese/ Seleni/Zn 1 ml/ Insulin Human Regular 15 unit/ Total Parenteral Nutrition/Amino Acids/Dextrose/ Fat Emulsion Intravenous 1,680 ml @ 70 mls/hr TPN CONT IV ; Start 11/13/19 at 22:00; Stop 11/14/19 at 21:59; Status Cancel Amino Acids/ Glycerin/ Electrolytes 1,000 ml @ 80 mls/hr [id number] IV Last administered on 11/18/19at 02:45; Start 11/13/19 at 10:15 Iohexol (Omnipaque 300 Mg/ml) 50 ml 1X ONCE IJ ; Start 11/15/19 at 11:00; Stop 11/15/19 at 11:01; Status DC Sodium Chloride 500 ml @ 500 mls/hr 1X ONCE IV Last administered on 11/15/19at 18:30; Start 11/15/19 at 18:30; Stop 11/15/19 at 19:29; Status DC Lidocaine HCl (Buffered Lidocaine 1%) 3 ml 1X ONCE INJ ; Start 11/17/19 at 12:15; Stop 11/17/19 at 12:17; Status DC Active Scripts Active Reported Bisoprolol Fumarate 5 Mg Tablet 10 Mg PO DAILY Vitals/I & O Vital Sign - Last 24 Hours 11/17/19 11/17/19 11/17/19 11/17/19 15:00 16:03 19:00 20:00 Temp 98.3 98.4 98.3 98.4 Pulse 141 128 Resp 34 22 B/P (MAP) 137/82 (100) 144/85 (104) Pulse Ox 95 96 95 O2 Delivery Room Air Nasal Cannula Room Air Room Air O2 Flow Rate 2.0 11/17/19 11/17/19 11/17/19 11/17/19 20:49 20:50 21:20 23:04 Temp 97.4 97.4 Pulse 118 Resp 22 22 27 B/P (MAP) 157/82 (107) Pulse Ox 97 95 95 96 O2 Delivery Room Air Room Air Room Air Room Air O2 Flow Rate 2.0 2.0 11/18/19 11/18/19 11/18/19 11/18/19 00:36 03:00 03:45 07:20 Temp 97.1 98.5 97.1 98.5 Pulse 112 112 Resp 22 20 B/P (MAP) 127/80 (96) 132/78 (96) Pulse Ox 94 96 96 O2 Delivery Room Air Room Air Room Air Room Air 11/18/19 11/18/19 11/18/19 11/18/19 08:00 08:28 08:40 11:00 Temp 98.7 98.7 Pulse 125 Resp 20 B/P (MAP) 137/85 (102) Pulse Ox 98 96 99 O2 Delivery Room Air Room Air Room Air Room Air 11/18/19 11/18/19 11/18/19 11:57 12:03 12:40 Pulse 152 Resp 26 B/P (MAP) 137/85 Pulse Ox 94 O2 Delivery Room Air Room Air Intake and Output 11/17/19 11/17/19 11/18/19 15:00 23:00 07:00 Intake Total 500 ml 1279 ml 464 ml Output Total 825 ml 325 ml 460 ml Balance -325 ml 954 ml 4 ml Problem List Problems Medical Problems: (1) Acute pancreatitis Status: Acute (2) Cholelithiasis Status: Acute Assessment 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 Plan of Care: Continue current Tx, Mgmt Justicifation of Admission Dx: Justifications for Admission: Justification of Admission Dx: Yes MARY RIVAS MD Nov 18, 2019 13:54
[2019-11-18] MEDS: fentaNYL PF VIAL 100 MCG/2 ML VIAL IV PRN ×3 (14:11→21:04)
--- NOTE | 2019-11-18 14:28 | PDOC ---
[employer] PROGRESS NOTE Chief Complaint Chief Complaint S/P Exp. 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 parapsilosis & PSAE (I-merrem/ceftazidime/AZT/cefepime)) Leucocytosis -trending upward Fever Acute gallstone pancreatitis with persistent necrosis Postop (Exploratory laparotomy, lysis of adhesions, subtotal cholecystectomy with cholangiogram, gastrojejunostomy tube placement, pancreatic necrosectomy) Acute hypoxic Respiratory failure required mechanical ventilation Tracheostomy bilateral pleural effusions/pulm edema s/p Throacentesis on 10/03/2019 Severe Acute gallstone pancreatitis (not a surgical candidate at this time) with necrosis Acute kidney failure now requiring dialysis Gallstones (Calculus of gallbladder with acute cholecystitis without obstru ction) HTN Intractable pain Intractable nausea Covid 19 negative. Acute on chronic anemia EEG: No seizure activity Fever - intermittent ? Ileus with vomiting Abd distention - U/S and CT reviewed s/p 0.4 L of opaque, debris-containing ascites was removed 08/23 Acute pancreatitis with persistent necrosis Gallstone pancreatitis with necrosis. -CT A/P 09/23 showed multiple pseudocysts, slight larger on the right. s/p drains x 3, 09/24. + PSAE (MDRO-R Cefepime, Zosyn ALEXANDRA < 64) and yeast, -s/p drain 08/14. C. parapsilosis. s/p drain 08/23 + yeast & high amylase; s/p additional drain on 08/25. Drains removed. Ascites s/p paracentesis 08/02 & 08/23. C. parapsilosis JUANA. off HD. A large fluid collection in the pancreatic bed has slightly decreased in size, described below, the pancreas itself is difficult to visualize, which could be due to necrosis or obscuration of pancreatic parenchyma from the surrounding fluid collection.10/02 - 08/14 status post KAYLIN drain placement + C paropsilosis. s/p additional drains 08/25 Anemia - S/p PRBCs. Cholelithiasis with thickening of the gallbladder wall. Leucocytosis improving JUANA, hyperkalemia, Metabolic acidosis off dialysis hypocalcemia Prediabetes HTN s/p trach Hyperglycemia severe protein-caloric malnutrition Moderate to large left pleural effusion with atelectasis and collapse of most of the left lower lobe, stable Extensive retroperitoneal fluid collections persist. Percutaneous drains remain within the collections in both paracolic gutters. These communicate with additi onal pelvic and peripancreatic collections. PLAN Continue Avycaz /micafungin, DC dapto per ID recommendations Negative C diff BC from 11/01 neg to date 11/12 PICC line removed will start PPN for 24 hours then replace PICC line other side Follow surgery input regarding diet and drains, pending GJ tube placement with IR before restarting tube feeds. DVT GI prophylaxis f/u BC /resp cultures continue DVT/GI PPX Discussed with RN 35 MIN CC TIME History of Present Illness History of Present Illness 11/18/2019 Patient seen and examined at bedside. No acute events overnight. Positive fluid balance 633. Patient's chart, labs, images were reviewed and discussed with RN 11/17/2019 Patient seen and examined bedside. No acute events overnight. Patient's chart, labs, images were reviewed and discussed with RN 11/15/2019 Patient seen and examined bedside. Patient appears to be in no obvious pain. All drains have been adequately draining. Patient continues to be on TPN. Chart labs and imaging was reviewed. Negative fluid balance of 270 cc 11/14/2019 Patient seen and examined in the ICU. Patient still requires extensive care. 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 Chart, labs, imaging was reviewed. UOP with + 500cc balance. 11/11 Patient seen in and examined in the ICU She is still extremely critically ill Appears weak, frail, and pale Better color today with improved eye contact and expression Discussed with RN Chart reviewed 11/08/2019 Patient seen and examined in the ICU She is still extremely critically ill Appears extremely weak frail and pale Discussed with RN Chart reviewed Vitals/I&O Vitals/I&O: Vital Signs Date Time Temp Pulse Resp B/P (MAP) Pulse Ox O2 Delivery O2 Flow Rate FiO2 11/18/19 14:11 24 95 Room Air 11/18/19 11:57 152 137/85 11/18/19 11:00 98.7 98.7 11/17/19 21:20 2.0 I & O 11/17/19 11/17/19 11/18/19 15:00 23:00 07:00 Intake Total 500 ml 1279 ml 464 ml Output Total 825 ml 325 ml 460 ml Balance -325 ml 954 ml 4 ml Physical Exam Physical Exam: GENERAL: pt in bed, appears weak -comfortable -alert HEENT: Pupils equal, oral cavity dry. OC/Op - Dry NECK: Tracheostomy - no JVD LUNGS: Diminished aeration bases, CT on left HEART: S1, S2, ABDOMEN: Distended mild- bowel sounds hypoactive, soft, goyal x 2, KAYLIN drains, G-J tube. Some drainage around R quad tube and mild insertion site irritation : Lind in place EXTREMITIES: Trace generalized edema, no cyanosis. Yeast in groin area SKIN: warm touch. No signs of rash. LUE- Previous PICC site without signs of complications. PIV s clean NEURO: - Alert and responsive PICC RUE - clean General: Cooperative, No acute distress Heart: Other (distant heart sounds, tachycardic) Lungs: Crackles Abdomen: Soft, Other (multiple drains) Extremities: Other (Diffuse edema) Skin: No rashes, No significant lesion Labs Labs: Laboratory Tests Test 11/17/19 17:49 11/17/19 23:00 11/18/19 05:01 11/18/19 08:36 Glucose (Fingerstick) 137 mg/dL (70-99) 117 mg/dL (70-99) 146 mg/dL (70-99) 141 mg/dL (70-99) Test 11/18/19 12:07 Glucose (Fingerstick) 159 mg/dL (70-99) Assessment and Plan Assessmemt and Plan Problems Medical Problems: (1) Acute pancreatitis Status: Acute (2) Cholelithiasis Status: Acute Comment Review of Relevant I have reviewed the following items kolby (where applicable) has been applied. Justicifation of Admission Dx: Justifications for Admission: Justification of Admission Dx: Yes ADRIANNE SAM MD Nov 18, 2019 14:28
[2019-11-18] MEDS: IV NORMAL SALINE 1000ML BAG 1,000 ML IV SCH (14:33)
[2019-11-18 15:30] VITALS: BP 137/76
[2019-11-18 19:40] VITALS: BP 145/76
[2019-11-18] MEDS: ONDANSETRON PF 4 MG/2 ML VIAL. IV PRN (21:59)
[2019-11-18 23:20] VITALS: BP 135/89
[2019-11-19] MEDS: fentaNYL PF VIAL 100 MCG/2 ML VIAL IV PRN ×8 (00:08→23:56)
--- NOTE | 2019-11-19 01:52 | NUR ---
Patient has been turned, stool cleaned from bottom, noted between legs a 'yeasty' like appearance, cleansed, dressings have been changed, as had leaked on gown, bed, and chux, greenish in color, monitoring.
[2019-11-19] MEDS: ONDANSETRON PF 4 MG/2 ML VIAL. IV PRN ×2 (02:58→06:39)
[2019-11-19 03:00] VITALS: BP 136/91
[2019-11-19] MEDS: IPRATRPIUM/ALBUTEROL 0.5/2.5MG 3 ML NEBU. NEB SCH ×6 (04:16→22:38)
[2019-11-19] MEDS: AMINO AC 3%/ELECTROLYTE/GLYCER 1,000 ML IV SCH ×2 (05:12→18:10)
--- NOTE | 2019-11-19 05:58 | PDOC ---
Infectious Disease Note Subjective Subjective States ok. Mild nausea again this am. No SOA/F/S/C. pain ok ROS ROS o/w neg Vital Sign Vital Signs Vital Signs Date Time Temp Pulse Resp B/P (MAP) Pulse Ox O2 Delivery O2 Flow Rate FiO2 11/19/19 04:16 99 Room Air 11/19/19 03:28 29 11/19/19 03:00 98.2 130 136/91 (106) 98.2 Physical Exam PHYSICAL EXAM GENERAL: pt in bed, appears weak -comfortable -alert HEENT: Pupils equal, oral cavity dry. OC/Op - Dry NECK: Tracheostomy - no JVD LUNGS: Diminished aeration bases, CT on left HEART: S1, S2, ABDOMEN: Less Distended mild- bowel sounds hypoactive, soft, goyal x 2, KAYLIN drains, G-J tube. Some drainage around R quad tube and mild insertion site i rritation : Lind in place EXTREMITIES: Trace generalized edema, no cyanosis. Yeast in groin area SKIN: warm touch. No signs of rash. LUE- Previous PICC site without signs of complications. PIV s clean NEURO: - Alert and responsive PICC RUE - clean Labs Lab Laboratory Tests Test 11/18/19 08:36 11/18/19 12:07 11/18/19 17:38 11/18/19 23:38 Glucose (Fingerstick) 141 mg/dL (70-99) 159 mg/dL (70-99) 131 mg/dL (70-99) 143 mg/dL (70-99) Micro 6/7 GRAM STAIN Final Final GRAM NEGATIVE RODS:MODERATE SQUAMOUS EPI CELL:NOT APPLICABLE PMN (WBCs):RARE YEAST:MODERATE Unless otherwise specified, Testing Performed by: [address] [address] For Inquires, the Physician may contact the Microbiology department at [phone] ANAEROBIC-AEROBIC CULTURE Preliminary Preliminary MANY GRAM NEGATIVE RODS on 09/27/19 at 1152 FINAL ID= [[email or web address]] PSEUDOMONAS AERUGINOSA ANTIMICROBIAL SUSCEPTIBILITY Preliminary Comment NEG ALEXANDRA 56 PSEUDOMONAS AERUGINOSA ANTIBIOTIC RESULT INTERPRETATION AMIKACIN <=16 S AZTREONAM >16 R CEFTAZIDIME >16 R CIPROFLOXACIN <=0.25 S CEFEPIME 16 I CEFTAZIDIME/AVIBACTAM <=4 S GENTAMICIN <=2 S CONTINUED ON NEXT PAGE RUN DATE: 09/29/19 [facility] *LIVE* PAGE 2 RUN TIME: 1016 Specimen Inquiry SPEC: [id number] PATIENT: SCOTT CUELLAR [id number] (Continued) -- Procedure Result ANTIMICROBIAL SUSCEPTIBILITY Preliminary (continued) LEVOFLOXACIN <=0.5 S MEROPENEM <=1 S PIPERACILLIN/TAZOBACTAM 64 S TOBRAMYCIN <=2 S Unless otherwise specified, Testing Performed by: [facility] [address] [place] [address] For Inquires, the Physician may contact the Microbiology department at [phone] CT Scan 09/23 IMPRESSION: 1. Removal of the percutaneous pigtail drainage catheters since the prior exam. Sequela of pancreatitis with extensive pseudocysts again demonstrated, the right-sided collections are slightly larger since the prior exam, the left-sided collections are stable. See above. 2. Moderate to large left pleural effusion with atelectasis and collapse of most of the left lower lobe, stable. Small right pleural effusion is stable. 3. Gallstone. Objective Assessment Patient with prolonged hospitalization more than 4 months Multiple medical problems Multiple surgical procedures URINE with parapsilosis S/P Exp. 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 parapsilosis & PSAE (I-merrem/ceftazidime/AZT/cefepime)) Leukocytosis - up to but clinically stable Fever - 11/11 c-diff neg Anemia Acute gallstone pancreatitis with persistent necrosis - 07/27. CT A/P Increased ascites. 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 status post KAYLIN drain placement; C. parapsilosis. s/p drain 08/23 + yeast & high amylase; s/p additional drain on 08/25. Drains removed. -08/23. fluid devyn parapsilosis fluid, amylase high - 09/23 showed multiple pseudocysts, slight larger on the right. s/p drains x 3, 09/24. + PSAE (MDRO-R Cefepime, Zosyn ALEXANDRA < 64) and yeast, -09/24 s/p drain replacement x 3; fluid cult PSAE (MDRO), yeast; treated -10/29 CT A/P shows smaller fluid collections. -722 CT abdomen and pelvis drains in place Ascites s/p paracentesis 08/02 & 08/23. C. parapsilosis Cholelithiasis with thickening of the gallbladder wall. JUANA, Hyperkalemia, Metabolic acidosis off dialysis Acute hypoxic resp failure. trach/vent. sputum 09/30 + PSAE (I merrem) ; sputum culture November 05+ for PSAE R Merrem, sensitive to cefepime Pleural effusion status post CTS left side Abdominal fluid culture MDRO Pseudomonas, yeast Sputum culture positive 11/05 for MDRO Pseudomonas Chest tube fluid positive for 11/07 Devyn Parapsilosis Plan Plan of Care Lind changed 11/13 Continue Avycaz 11/09 /micafungin 10/17 Restart daptomycin 11/12(CK <7 11/14) wean soon CBC/BMP in am Nystatin to groin UA and urine culture Blood culture/Cath tip neg - neg C. difficile negative Monitor WBC/temp Wound care /drain management as directed Contact isolation for CRE/MDRO Critically ill [facility] prognosis poor D/w nursing WILLY BARAKAT MD Nov 19, 2019 05:58
[2019-11-19] MEDS: INSULIN LISPRO 300 UNITS/3 ML VIAL. SQ SCH ×3 (06:00→18:00)
[2019-11-19] MEDS: CEFTAZIDIME/AVIBACTAM 2.5 GM in IV NORMAL SALINE 250ML 250 ML IV SCH ×3 (06:15→21:43)
[2019-11-19 06:31] LABS: BASO # 0.1 x10^3/uL (0.0-0.2); BASO % 0 % (0-3); EOS # 0.2 x10^3/uL (0.0-0.7); EOS % 1 % (0-3); HEMATOCRIT 24.3 % (36.0-47.0); LYMPH # 1.5 x10^3/uL (1.0-4.8); LYMPH % 10 % (24-48); MEAN CORPUSCULAR HEMOGLOBIN 28 pg (25-35); MEAN CORPUSCULAR HGB CONC 33 g/dL (31-37); MEAN CORPUSCULAR VOLUME 86 fL (79-100); MONO % 6 % (0-9); NEUT # 13.4 x10^3/uL (1.8-7.7); NEUT % 83 % (31-73); PLATELET COUNT 660 x10^3/uL (140-400); RED BLOOD COUNT 2.83 x10^6/uL (3.50-5.40); RED CELL DISTRIBUTION WIDTH 17.2 % (11.5-14.5); WHITE BLOOD COUNT 16.2 x10^3/uL (4.0-11.0)
[2019-11-19 06:35] LABS: CALCIUM 10.4 mg/dL (8.5-10.1); CREATININE 0.6 mg/dL (0.6-1.0); GFR 106.3; POTASSIUM 4.2 mmol/L (3.5-5.1)
--- NOTE | 2019-11-19 06:48 | NUR ---
Patient, again, saturates dressings abdomen, himanshu-30cc, but drained around the tube insertion site, gown and chux again, changed. fentanyl and zofran given.
[2019-11-19 07:00] VITALS: BP 146/83
[2019-11-19] MEDS: PANTOPRAZOLE IV PUSH 40 MG VIAL. IVP SCH (07:43)
[2019-11-19] MEDS: ENOXAPARIN 40 MG/0.4 ML SYRINGE. SQ SCH (07:46)
[2019-11-19] MEDS: ACETYLCYSTEINE 20% for RESP TX 600 MG/3 ML. NEB SCH ×2 (08:00→19:35)
[2019-11-19] MEDS: MICAFUNGIN 100 MG in IV DEXTROSE 5% 100ML 100 ML IV SCH (08:10)
[2019-11-19] MEDS: DAPTOmycin (GENERIC) IVPB 500 MG in IV NORMAL SALINE 50ML 50 ML IV SCH (09:16)
--- NOTE | 2019-11-19 10:35 | PDOC ---
[employer] PROGRESS NOTE Chief Complaint Chief Complaint S/P Exp. 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 parapsilosis & PSAE (I-merrem/ceftazidime/AZT/cefepime)) Leucocytosis -stable [id number] last night Acute gallstone pancreatitis with persistent necrosis Acute hypoxic Respiratory failure required mechanical ventilation Tracheostomy Thursday. bilateral pleural effusions/pulm edema s/p Throacentesis on 10/03/2019 Severe Acute gallstone pancreatitis (not a surgical candidate at this time) with necrosis Acute kidney failure now requiring dialysis Gallstones (Calculus of gallbladder with acute cholecystitis without obstruction) HTN Intractable pain Intractable nausea Covid 19 negative. Acute on chronic anemia EEG: No seizure activity Fever - intermittent ? Ileus with vomiting Abd distention - U/S and CT reviewed s/p 0.4 L of opaque, debris-containing ascites was removed 08/23 Acute pancreatitis with persistent necrosis Gallstone pancreatitis with necrosis. -CT A/P 09/23 showed multiple pseudocysts, slight larger on the right. s/p drains x , 09/24. + PSAE (MDRO-R Cefepime, Zosyn ALEXANDRA < 64) and yeast, -s/p drain 08/14. C. parapsilosis. s/p drain 08/23 + yeast & high amylase; s/p additional drain on 08/25. Drains removed. Ascites s/p paracentesis 08/02 & 08/23. C. parapsilosis JUANA. off HD. A large fluid collection in the pancreatic bed has slightly decreased in size, described below, the pancreas itself is difficult to visualize, which could be due to necrosis or obscuration of pancreatic parenchyma from the surrounding fluid collection.10/02 - 08/14 status post KAYLIN drain placement + C paropsilosis. s/p additional drains 08/25 Anemia - S/p PRBCs. Cholelithiasis with thickening of the gallbladder wall. Leucocytosis improving JUANA, hyperkalemia, Metabolic acidosis off dialysis hypocalcemia Prediabetes HTN s/p trach Hyperglycemia severe protein-caloric malnutrition Moderate to large left pleural effusion with atelectasis and collapse of most of the left lower lobe, stable Extensive retroperitoneal fluid collections persist. Percutaneous drains remain within the collections in both paracolic gutters. These communicate with additional pelvic and peripancreatic collections. PLAN per ID recommendations, continue Avycaz, micafungin, daptomycin. Nystatin to the groin Negative C diff BC from 11/01 neg to date 11/12 PICC line removed will start PPN for 24 hours then replace PICC line other side Follow surgery input regarding diet and drains, pending GJ tube placement with IR before restarting tube feeds. DVT GI prophylaxis f/u BC /resp cultures continue DVT/GI PPX Discussed with RN 40 MIN CC TIME History of Present Illness History of Present Illness 11/19/2019 No acute events overnight. Seen and examined at bedside. Patient had a fever 1 00.2. Negative fluid balance of 150 cc. Patient's chart, labs, images were reviewed and discussed with RN 11/18/2019 Patient seen and examined at bedside. No acute events overnight. Positive fluid balance 633. Patient's chart, labs, images were reviewed and discussed with RN 11/17/2019 Patient seen and examined bedside. No acute events overnight. Patient's chart, labs, images were reviewed and discussed with RN 11/15/2019 Patient seen and examined bedside. Patient appears to be in no obvious pain. All drains have been adequately draining. Patient continues to be on TPN. Chart labs and imaging was reviewed. Negative fluid balance of 270 cc 11/14/2019 Patient seen and examined in the ICU. Patient still requires extensive care. 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 Chart, labs, imaging was reviewed. UOP with + 500cc balance. 11/11 Patient seen in and examined in the ICU She is still extremely critically ill Appears weak, frail, and pale Better color today with improved eye contact and expression Discussed with RN Chart reviewed 11/08/2019 Patient seen and examined in the ICU She is still extremely critically ill Appears extremely weak frail and pale Discussed with RN Chart reviewed Vitals/I&O Vitals/I&O: Vital Signs Date Time Temp Pulse Resp B/P (MAP) Pulse Ox O2 Delivery O2 Flow Rate FiO2 11/19/19 09:16 18 95 Room Air 11/19/19 08:33 2.0 11/19/19 07:00 100.2 128 146/83 (104) 100.2 I & O 11/18/19 11/18/19 11/19/19 15:00 23:00 07:00 Intake Total 200 ml 1660 ml 1150 ml Output Total 160 ml 1040 ml 725 ml Balance 40 ml 620 ml 425 ml Physical Exam Physical Exam: GENERAL: pt in bed, appears weak -comfortable -alert HEENT: Pupils equal, oral cavity dry. OC/Op - Dry NECK: Tracheostomy - no JVD LUNGS: Diminished aeration bases, CT on left HEART: S1, S2, ABDOMEN: Less Distended mild- bowel sounds hypoactive, soft, goyal x 2, KAYLIN drains, G-J tube. Some drainage around R quad tube and mild insertion site irritation : Lind in place EXTREMITIES: Trace generalized edema, no cyanosis. Yeast in groin area SKIN: warm touch. No signs of rash. LUE- Previous PICC site without signs of complications. PIV s clean NEURO: - Alert and responsive PICC RUE - clean General: Cooperative, No acute distress Heart: Other (distant heart sounds, tachycardic) Lungs: Crackles Abdomen: Soft, Other (multiple drains) Extremities: Other (Diffuse edema) Skin: No rashes, No significant lesion Labs Labs: Laboratory Tests Test 11/18/19 12:07 11/18/19 17:38 11/18/19 23:38 11/19/19 06:05 Glucose (Fingerstick) 159 mg/dL (70-99) 131 mg/dL (70-99) 143 mg/dL (70-99) White Blood Count 16.2 x10^3/uL (4.0-11.0) Red Blood Count 2.83 x10^6/uL (3.50-5.40) Hemoglobin 8.0 g/dL (12.0-15.5) Hematocrit 24.3 % (36.0-47.0) Mean Corpuscular Volume 86 fL (79-100) Mean Corpuscular Hemoglobin 28 pg (25-35) Mean Corpuscular Hemoglobin Concent 33 g/dL (31-37) Red Cell Distribution Width 17.2 % (11.5-14.5) Platelet Count 660 x10^3/uL (140-400) Neutrophils (%) (Auto) 83 % (31-73) Lymphocytes (%) (Auto) 10 % (24-48) Monocytes (%) (Auto) 6 % (0-9) Eosinophils (%) (Auto) 1 % (0-3) Basophils (%) (Auto) 0 % (0-3) Neutrophils # (Auto) 13.4 x10^3/uL (1.8-7.7) Lymphocytes # (Auto) 1.5 x10^3/uL (1.0-4.8) Monocytes # (Auto) 1.0 x10^3/uL (0.0-1.1) Eosinophils # (Auto) 0.2 x10^3/uL (0.0-0.7) Basophils # (Auto) 0.1 x10^3/uL (0.0-0.2) Sodium Level 130 mmol/L (136-145) Potassium Level 4.2 mmol/L (3.5-5.1) Chloride Level 101 mmol/L (98-107) Carbon Dioxide Level 27 mmol/L (21-32) Anion Gap 2 (6-14) Blood Urea Nitrogen 10 mg/dL (7-20) Creatinine 0.6 mg/dL (0.6-1.0) Estimated GFR (Cockcroft-Gault) 106.3 Glucose Level 143 mg/dL (70-99) Calcium Level 10.4 mg/dL (8.5-10.1) Test 11/19/19 06:22 Glucose (Fingerstick) 139 mg/dL (70-99) Assessment and Plan Assessmemt and Plan Problems Medical Problems: (1) Acute pancreatitis Status: Acute (2) Cholelithiasis Status: Acute Comment Review of Relevant I have reviewed the following items kolby (where applicable) has been applied. Justicifation of Admission Dx: Justifications for Admission: Justification of Admission Dx: Yes ADRIANNE SAM MD Nov 19, 2019 10:35
[2019-11-19 11:00] VITALS: BP 135/84
--- NOTE | 2019-11-19 12:38 | PDOC ---
SURGICAL PROGRESS NOTE Subjective Pt sitting up, does note some upset stomach Vital Signs Vital Signs Date Time Temp Pulse Resp B/P (MAP) Pulse Ox O2 Delivery O2 Flow Rate FiO2 11/19/19 11:00 97.8 122 29 135/84 (101) 96 Room Air 97.8 11/19/19 08:33 2.0 I&O Intake and Output 11/19/19 07:00 Intake Total 3010 ml Output Total 1925 ml Balance 1085 ml Intake Oral 0 ml IV Total 1250 ml Tube Feeding 1410 ml Blood Product 250 ml Other 100 ml Output Urine Total 1025 ml Drainage Total 900 ml # Bowel Movements 3 General: Alert, Cooperative, No acute distress Abdomen: Soft, No tenderness, Other (drain with brownish drainage, wound vac in place) Labs Laboratory Tests Test 11/17/19 17:49 11/17/19 23:00 11/18/19 05:01 11/18/19 08:36 Glucose (Fingerstick) 137 mg/dL (70-99) 117 mg/dL (70-99) 146 mg/dL (70-99) 141 mg/dL (70-99) Test 11/18/19 12:07 11/18/19 17:38 11/18/19 23:38 11/19/19 06:05 Glucose (Fingerstick) 159 mg/dL (70-99) 131 mg/dL (70-99) 143 mg/dL (70-99) White Blood Count 16.2 x10^3/uL (4.0-11.0) Red Blood Count 2.83 x10^6/uL (3.50-5.40) Hemoglobin 8.0 g/dL (12.0-15.5) Hematocrit 24.3 % (36.0-47.0) Mean Corpuscular Volume 86 fL (79-100) Mean Corpuscular Hemoglobin 28 pg (25-35) Mean Corpuscular Hemoglobin Concent 33 g/dL (31-37) Red Cell Distribution Width 17.2 % (11.5-14.5) Platelet Count 660 x10^3/uL (140-400) Neutrophils (%) (Auto) 83 % (31-73) Lymphocytes (%) (Auto) 10 % (24-48) Monocytes (%) (Auto) 6 % (0-9) Eosinophils (%) (Auto) 1 % (0-3) Basophils (%) (Auto) 0 % (0-3) Neutrophils # (Auto) 13.4 x10^3/uL (1.8-7.7) Lymphocytes # (Auto) 1.5 x10^3/uL (1.0-4.8) Monocytes # (Auto) 1.0 x10^3/uL (0.0-1.1) Eosinophils # (Auto) 0.2 x10^3/uL (0.0-0.7) Basophils # (Auto) 0.1 x10^3/uL (0.0-0.2) Sodium Level 130 mmol/L (136-145) Potassium Level 4.2 mmol/L (3.5-5.1) Chloride Level 101 mmol/L (98-107) Carbon Dioxide Level 27 mmol/L (21-32) Anion Gap 2 (6-14) Blood Urea Nitrogen 10 mg/dL (-20) Creatinine 0.6 mg/dL (0.6-1.0) Estimated GFR (Cockcroft-Gault) 106.3 Glucose Level 143 mg/dL (70-99) Calcium Level 10.4 mg/dL (8.5-10.1) Test 11/19/19 06:22 11/19/19 11:48 Glucose (Fingerstick) 139 mg/dL (70-99) 147 mg/dL (70-99) Laboratory Tests Test 11/18/19 17:38 11/18/19 23:38 11/19/19 06:05 11/19/19 06:22 Glucose (Fingerstick) 131 mg/dL (70-99) 143 mg/dL (70-99) 139 mg/dL (70-99) White Blood Count 16.2 x10^3/uL (4.0-11.0) Red Blood Count 2.83 x10^6/uL (3.50-5.40) Hemoglobin 8.0 g/dL (12.0-15.5) Hematocrit 24.3 % (36.0-47.0) Mean Corpuscular Volume 86 fL (79-100) Mean Corpuscular Hemoglobin 28 pg (25-35) Mean Corpuscular Hemoglobin Concent 33 g/dL (31-37) Red Cell Distribution Width 17.2 % (11.5-14.5) Platelet Count 660 x10^3/uL (140-400) Neutrophils (%) (Auto) 83 % (31-73) Lymphocytes (%) (Auto) 10 % (24-48) Monocytes (%) (Auto) 6 % (0-9) Eosinophils (%) (Auto) 1 % (0-3) Basophils (%) (Auto) 0 % (0-3) Neutrophils # (Auto) 13.4 x10^3/uL (1.8-7.7) Lymphocytes # (Auto) 1.5 x10^3/uL (1.0-4.8) Monocytes # (Auto) 1.0 x10^3/uL (0.0-1.1) Eosinophils # (Auto) 0.2 x10^3/uL (0.0-0.7) Basophils # (Auto) 0.1 x10^3/uL (0.0-0.2) Sodium Level 130 mmol/L (136-145) Potassium Level 4.2 mmol/L (3.5-5.1) Chloride Level 101 mmol/L (98-107) Carbon Dioxide Level 27 mmol/L (21-32) Anion Gap 2 (6-14) Blood Urea Nitrogen 10 mg/dL (7-20) Creatinine 0.6 mg/dL (0.6-1.0) Estimated GFR (Cockcroft-Gault) 106.3 Glucose Level 143 mg/dL (70-99) Calcium Level 10.4 mg/dL (8.5-10.1) Test 11/19/19 11:48 Glucose (Fingerstick) 147 mg/dL (70-99) Problem List Problems Medical Problems: (1) Acute pancreatitis Status: Acute (2) Cholelithiasis Status: Acute Assessment/Plan cont supportive care and drains Justicifation of Admission Dx: Justifications for Admission: Justification of Admission Dx: Yes DAVON SIMMS MD Nov 19, 2019 12:38
[2019-11-19] MEDS: IV NORMAL SALINE 1000ML BAG 1,000 ML IV SCH (14:33)
[2019-11-19 15:00] VITALS: BP 133/77
[2019-11-19 19:00] VITALS: BP 141/92
[2019-11-19 23:00] VITALS: BP 130/84
[2019-11-20 03:00] VITALS: BP 164/83
[2019-11-20] MEDS: IPRATRPIUM/ALBUTEROL 0.5/2.5MG 3 ML NEBU. NEB SCH ×5 (03:32→20:15)
[2019-11-20] MEDS: INSULIN LISPRO 300 UNITS/3 ML VIAL. SQ SCH ×5 (05:45→23:49)
[2019-11-20 06:01] LABS: CALCIUM 9.9 mg/dL (8.5-10.1); CREATININE 0.5 mg/dL (0.6-1.0); GFR 131.1; POTASSIUM 4.9 mmol/L (3.5-5.1)
[2019-11-20 06:02] LABS: BASO # 0.1 x10^3/uL (0.0-0.2); BASO % 0 % (0-3); EOS # 0.2 x10^3/uL (0.0-0.7); EOS % 2 % (0-3); HEMATOCRIT 21.8 % (36.0-47.0); LYMPH # 1.5 x10^3/uL (1.0-4.8); LYMPH % 11 % (24-48); MEAN CORPUSCULAR HEMOGLOBIN 28 pg (25-35); MEAN CORPUSCULAR HGB CONC 32 g/dL (31-37); MEAN CORPUSCULAR VOLUME 87 fL (79-100); MONO # 0.9 x10^3/uL (0.0-1.1); MONO % 7 % (0-9); NEUT # 10.9 x10^3/uL (1.8-7.7); NEUT % 80 % (31-73); PLATELET COUNT 608 x10^3/uL (140-400); RED CELL DISTRIBUTION WIDTH 17.4 % (11.5-14.5); WHITE BLOOD COUNT 13.6 x10^3/uL (4.0-11.0)
[2019-11-20 06:10] LABS: HEMOGLOBIN 6.9 g/dL (12.0-15.5)
--- NOTE | 2019-11-20 06:35 | NUR ---
Dressings to right KAYLIN drain and [place] drain saturated and changed multiple times throughout the shift. Drainage leaking around drain sites, no drainage collecting in the drains themselves. Will pass on. Pt Hgb this am is 6.9. Dr. Lindquist notified. Received order to continue current POC, do not give blood at this time. Wait for physicians to round this am. Will pass on and continue to monitor.
[2019-11-20] MEDS: CEFTAZIDIME/AVIBACTAM 2.5 GM in IV NORMAL SALINE 250ML 250 ML IV SCH ×3 (06:40→20:55)
[2019-11-20 07:00] VITALS: BP 143/67
--- NOTE | 2019-11-20 07:14 | PDOC ---
Infectious Disease Note Subjective Subjective States ok. Some discomfort with drains No SOA/F/S/C. Vital Sign Vital Signs Vital Signs Date Time Temp Pulse Resp B/P (MAP) Pulse Ox O2 Delivery O2 Flow Rate FiO2 11/20/19 03:33 96 Room Air 11/20/19 03:00 98.3 132 28 164/83 (110) 98.3 11/19/19 21:40 2.0 Physical Exam PHYSICAL EXAM GENERAL: pt in bed, appears weak -comfortable -alert HEENT: Pupils equal, oral cavity dry. OC/Op - Dry NECK: Tracheostomy - no JVD LUNGS: Diminished aeration bases, CT on left HEART: S1, S2, ABDOMEN: Less Distended mild- bowel sounds hypoactive, soft, goyal x 2, KAYLIN dr chi, G-J tube. Some drainage around R quad tube again and mild insertion site irritation : Lind in place EXTREMITIES: Trace generalized edema, no cyanosis. Yeast in groin area SKIN: warm touch. No signs of rash. LUE- Previous PICC site without signs of complications. PIV s clean NEURO: - Alert and responsive PICC RUE - clean Labs Lab Laboratory Tests Test 11/19/19 11:48 11/19/19 18:08 11/19/19 23:58 11/20/19 05:40 Glucose (Fingerstick) 147 mg/dL (70-99) 142 mg/dL (70-99) 135 mg/dL (70-99) White Blood Count 13.6 x10^3/uL (4.0-11.0) Red Blood Count 2.50 x10^6/uL (3.50-5.40) Hemoglobin 6.9 g/dL (12.0-15.5) Hematocrit 21.8 % (36.0-47.0) Mean Corpuscular Volume 87 fL (79-100) Mean Corpuscular Hemoglobin 28 pg (25-35) Mean Corpuscular Hemoglobin Concent 32 g/dL (31-37) Red Cell Distribution Width 17.4 % (11.5-14.5) Platelet Count 608 x10^3/uL (140-400) Neutrophils (%) (Auto) 80 % (31-73) Lymphocytes (%) (Auto) 11 % (24-48) Monocytes (%) (Auto) 7 % (0-9) Eosinophils (%) (Auto) 2 % (0-3) Basophils (%) (Auto) 0 % (0-3) Neutrophils # (Auto) 10.9 x10^3/uL (1.8-7.7) Lymphocytes # (Auto) 1.5 x10^3/uL (1.0-4.8) Monocytes # (Auto) 0.9 x10^3/uL (0.0-1.1) Eosinophils # (Auto) 0.2 x10^3/uL (0.0-0.7) Basophils # (Auto) 0.1 x10^3/uL (0.0-0.2) Sodium Level 129 mmol/L (136-145) Potassium Level 4.9 mmol/L (3.5-5.1) Chloride Level 100 mmol/L (98-107) Carbon Dioxide Level 26 mmol/L (21-32) Anion Gap 3 (6-14) Blood Urea Nitrogen 8 mg/dL (7-20) Creatinine 0.5 mg/dL (0.6-1.0) Estimated GFR (Cockcroft-Gault) 131.1 Glucose Level 134 mg/dL (70-99) Calcium Level 9.9 mg/dL (8.5-10.1) Test 11/20/19 05:42 Glucose (Fingerstick) 147 mg/dL (70-99) Micro 6/7 GRAM STAIN Final Final GRAM NEGATIVE RODS:MODERATE SQUAMOUS EPI CELL:NOT APPLICABLE PMN (WBCs):RARE YEAST:MODERATE Unless otherwise specified, Testing Performed by: [address] [address] For Inquires, the Physician may contact the Microbiology department at [phone] ANAEROBIC-AEROBIC CULTURE Preliminary Preliminary MANY GRAM NEGATIVE RODS on 09/27/19 at 8622 FINAL ID= [[email or web address]] PSEUDOMONAS AERUGINOSA ANTIMICROBIAL SUSCEPTIBILITY Preliminary Comment NEG ALEXANDRA 56 PSEUDOMONAS AERUGINOSA ANTIBIOTIC RESULT INTERPRETATION AMIKACIN <=16 S AZTREONAM >16 R CEFTAZIDIME >16 R CIPROFLOXACIN <=0.25 S CEFEPIME 16 I CEFTAZIDIME/AVIBACTAM <=4 S GENTAMICIN <=2 S CONTINUED ON NEXT PAGE RUN DATE: 09/29/19 [facility] *LIVE* PAGE 2 RUN TIME: 1016 Specimen Inquiry SPEC: [id number] PATIENT: SCOTT CUELLAR [id number] (Continued) Procedure Result ANTIMICROBIAL SUSCEPTIBILITY Preliminary (continued) LEVOFLOXACIN <=0.5 S MEROPENEM <=1 S PIPERACILLIN/TAZOBACTAM 64 S TOBRAMYCIN <=2 S Unless otherwise specified, Testing Performed by: [facility] [address] [place] [address] For Inquires, the Physician may contact the Microbiology department at [phone] CT Scan 09/23 IMPRESSION: 1. Removal of the percutaneous pigtail drainage catheters since the prior exam. Sequela of pancreatitis with extensive pseudocysts again demonstrated, the right-sided collections are slightly larger since the prior exam, the left-sided collections are stable. See above. 2. Moderate to large left pleural effusion with atelectasis and collapse of most of the left lower lobe, stable. Small right pleural effusion is stable. 3. Gallstone. Objective Assessment Patient with prolonged hospitalization more than 4 months Multiple medical problems Multiple surgical procedures URINE with parapsilosis S/P Exp. 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 parapsilosis & PSAE (I-merrem/ceftazidime/AZT/cefepime)) Leukocytosis - better Loose stool but on tube feed - WBC down and no gross fever Fever - 11/11 c-diff neg Anemia Acute gallstone pancreatitis with persistent necrosis - 07/27. CT A/P Increased ascites. 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 status post KAYLIN drain placement; C. parapsilosis. s/p drain 08/23 + yeast & high amylase; s/p additional drain on 08/25. Drains removed. -08/23. fluid devyn parapsilosis fluid, amylase high - 09/23 showed multiple pseudocysts, slight larger on the right. s/p drains x 3, 09/24. + PSAE (MDRO-R Cefepime, Zosyn ALEXANDRA < 64) and yeast, -09/24 s/p drain replacement x 3; fluid cult PSAE (MDRO), yeast; treated -10/29 CT A/P shows smaller fluid collections. -722 CT abdomen and pelvis drains in place Ascites s/p paracentesis 08/02 & 08/23. C. parapsilosis Cholelithiasis with thickening of the gallbladder wall. JUANA, Hyperkalemia, Metabolic acidosis off dialysis Acute hypoxic resp failure. trach/vent. sputum 09/30 + PSAE (I merrem) ; sputum culture November 05+ for PSAE R Merrem, sensitive to cefepime Pleural effusion status post CTS left side Abdominal fluid culture MDRO Pseudomonas, yeast Sputum culture positive 11/05 for MDRO Pseudomonas Chest tube fluid positive for 11/07 Devyn Parapsilosis Plan Plan of Care Anemia per primary Electrolyes per primary Lind changed 11/13 Continue Avycaz 11/09 /micafungin 10/17 Restart daptomycin 11/12(CK <7 11/14) wean soon CBC/BMP in am Nystatin to groin UA and urine culture Blood culture/Cath tip neg - neg C. 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
[2019-11-20] MEDS: ACETYLCYSTEINE 20% for RESP TX 600 MG/3 ML. NEB SCH ×2 (07:38→20:15)
[2019-11-20] MEDS: PANTOPRAZOLE IV PUSH 40 MG VIAL. IVP SCH (08:09)
[2019-11-20] MEDS: MICAFUNGIN 100 MG in IV DEXTROSE 5% 100ML 100 ML IV SCH (08:10)
[2019-11-20] MEDS: ENOXAPARIN 40 MG/0.4 ML SYRINGE. SQ SCH (09:32)
[2019-11-20] MEDS: DAPTOmycin (GENERIC) IVPB 500 MG in IV NORMAL SALINE 50ML 50 ML IV SCH (09:32)
[2019-11-20 11:00] VITALS: BP 163/69
[2019-11-20] MEDS: fentaNYL PF VIAL 100 MCG/2 ML VIAL IV PRN ×2 (11:08→22:14)
--- NOTE | 2019-11-20 12:13 | PDOC ---
[employer] [facility] PROGRESS NOTE Chief Complaint Chief Complaint S/P Exp. 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 parapsilosis & PSAE (I-merrem/ceftazidime/AZT/cefepime)) Leucocytosis -stable [id number] last night Acute gallstone pancreatitis with persistent necrosis Acute hypoxic Respiratory failure required mechanical ventilation Tracheostomy Thursday. bilateral pleural effusions/pulm edema s/p Throacentesis on 10/03/2019 Severe Acute gallstone pancreatitis (not a surgical candidate at this time) with necrosis Acute kidney failure now requiring dialysis Gallstones (Calculus of gallbladder with acute cholecystitis without obstruction) HTN Intractable pain Intractable nausea Covid 19 negative. Acute on chronic anemia EEG: No seizure activity Fever - intermittent ? Ileus with vomiting Abd distention - U/S and CT reviewed s/p 0.4 L of opaque, debris-containing ascites was removed 08/23 Acute pancreatitis with persistent necrosis Gallstone pancreatitis with necrosis. -CT A/P 09/23 showed multiple pseudocysts, slight larger on the right. s/p drains x , 09/24. + PSAE (MDRO-R Cefepime, Zosyn ALEXANDRA < 64) and yeast, -s/p drain 08/14. C. parapsilosis. s/p drain 08/23 + yeast & high amylase; s/p additional drain on 08/25. Drains removed. Ascites s/p paracentesis 08/02 & 08/23. C. parapsilosis JUANA. off HD. A large fluid collection in the pancreatic bed has slightly decreased in size, described below, the pancreas itself is difficult to visualize, which could be due to necrosis or obscuration of pancreatic parenchyma from the surrounding fluid collection.10/02 - 08/14 status post KAYLIN drain placement + C paropsilosis. s/p additional drains 08/25 Anemia - S/p PRBCs. Cholelithiasis with thickening of the gallbladder wall. Leucocytosis improving JUANA, hyperkalemia, Metabolic acidosis off dialysis hypocalcemia Prediabetes HTN s/p trach Hyperglycemia severe protein-caloric malnutrition Moderate to large left pleural effusion with atelectasis and collapse of most of the left lower lobe, stable Extensive retroperitoneal fluid collections persist. Percutaneous drains remain within the collections in both paracolic gutters. These communicate with additional pelvic and peripancreatic collections. PLAN Repeat hemoglobin in the afternoon Type and cross for 1 unit PRBC per ID recommendations, continue Avycaz, micafungin, daptomycin. Nystatin to the groin Negative C diff BC from 11/01 neg to date 11/12 PICC line removed will start PPN for 24 hours then replace PICC line other side Follow surgery input regarding diet and drains, pending GJ tube placement with IR before restarting tube feeds. DVT GI prophylaxis f/u BC /resp cultures continue DVT/GI PPX Discussed with RN 45 MIN CC TIME History of Present Illness History of Present Illness 11/20/2019 Patient seen and examined bedside. Positive fluid balance in the past 24 hours. Patient's chart, labs, images were reviewed and discussed with RN 11/19/2019 No acute events overnight. Seen and examined at bedside. Patient had a fever 100.2. Negative fluid balance of 150 cc. Patient's chart, labs, images were reviewed and discussed with RN 11/18/2019 Patient seen and examined at bedside. No acute events overnight. Positive fluid balance 633. Patient's chart, labs, images were reviewed and discussed with RN 11/17/2019 Patient seen and examined bedside. No acute events overnight. Patient's chart, labs, images were reviewed and discussed with RN 11/15/2019 Patient seen and examined bedside. Patient appears to be in no obvious pain. All drains have been adequately draining. Patient continues to be on TPN. Chart labs and imaging was reviewed. Negative fluid balance of 270 cc 11/14/2019 Patient seen and examined in the ICU. Patient still requires extensive care. 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 Chart, labs, imaging was reviewed. UOP with + 500cc balance. 11/11 Patient seen in and examined in the ICU She is still extremely critically ill Appears weak, frail, and pale Better color today with improved eye contact and expression Discussed with RN Chart reviewed 11/08/2019 Patient seen and examined in the ICU She is still extremely critically ill Appears extremely weak frail and pale Discussed with RN Chart reviewed Vitals/I&O Vitals/I&O: Vital Signs Date Time Temp Pulse Resp B/P (MAP) Pulse Ox O2 Delivery O2 Flow Rate FiO2 11/20/19 11:34 97 Room Air 11/20/19 11:08 31 11/20/19 11:00 99.2 119 163/69 (100) 99.2 11/19/19 21:40 2.0 I & O 11/19/19 11/19/19 11/20/19 15:00 23:00 07:00 Intake Total 350 ml 2900 ml 2312 ml Output Total 375 ml 880 ml 645 ml Balance -25 ml 2020 ml 1667 ml Physical Exam Physical Exam: GENERAL: pt in bed, appears weak -comfortable -alert HEENT: Pupils equal, oral cavity dry. OC/Op - Dry NECK: Tracheostomy - no JVD LUNGS: Diminished aeration bases, CT on left HEART: S1, S2, ABDOMEN: Less Distended mild- bowel sounds hypoactive, soft, goyal x 2, KAYLIN drains, G-J tube. Some drainage around R quad tube again and mild insertion site irritation : Lind in place EXTREMITIES: Trace generalized edema, no cyanosis. Yeast in groin area SKIN: warm touch. No signs of rash. LUE- Previous PICC site without signs of complications. PIV s clean NEURO: - Alert and responsive PICC RUE - clean General: Alert, Cooperative, No acute distress Heart: Other (distant heart sounds, tachycardic) Lungs: Crackles Abdomen: Soft, No tenderness, Other (drain with brownish drainage, wound vac in place) Extremities: Other (Diffuse edema) Skin: No rashes, No significant lesion Labs Labs: Laboratory Tests Test 11/19/19 18:08 11/19/19 23:58 11/20/19 05:40 11/20/19 05:42 Glucose (Fingerstick) 142 mg/dL (70-99) 135 mg/dL (70-99) 147 mg/dL (70-99) White Blood Count 13.6 x10^3/uL (4.0-11.0) Red Blood Count 2.50 x10^6/uL (3.50-5.40) Hemoglobin 6.9 g/dL (12.0-15.5) Hematocrit 21.8 % (36.0-47.0) Mean Corpuscular Volume 87 fL (79-100) Mean Corpuscular Hemoglobin 28 pg (25-35) Mean Corpuscular Hemoglobin Concent 32 g/dL (31-37) Red Cell Distribution Width 17.4 % (11.5-14.5) Platelet Count 608 x10^3/uL (140-400) Neutrophils (%) (Auto) 80 % (31-73) Lymphocytes (%) (Auto) 11 % (24-48) Monocytes (%) (Auto) 7 % (0-9) Eosinophils (%) (Auto) 2 % (0-3) Basophils (%) (Auto) 0 % (0-3) Neutrophils # (Auto) 10.9 x10^3/uL (1.8-7.7) Lymphocytes # (Auto) 1.5 x10^3/uL (1.0-4.8) Monocytes # (Auto) 0.9 x10^3/uL (0.0-1.1) Eosinophils # (Auto) 0.2 x10^3/uL (0.0-0.7) Basophils # (Auto) 0.1 x10^3/uL (0.0-0.2) Sodium Level 129 mmol/L (136-145) Potassium Level 4.9 mmol/L (3.5-5.1) Chloride Level 100 mmol/L (98-107) Carbon Dioxide Level 26 mmol/L (21-32) Anion Gap 3 (6-14) Blood Urea Nitrogen 8 mg/dL (7-20) Creatinine 0.5 mg/dL (0.6-1.0) Estimated GFR (Cockcroft-Gault) 131.1 Glucose Level 134 mg/dL (70-99) Calcium Level 9.9 mg/dL (8.5-10.1) Assessment and Plan Assessmemt and Plan Problems Medical Problems: (1) Acute pancreatitis Status: Acute (2) Cholelithiasis Status: Acute Comment Review of Relevant I have reviewed the following items kolby (where applicable) has been applied. Justicifation of Admission Dx: Justifications for Admission: Justification of Admission Dx: Yes ADRIANNE SAM MD Nov 20, 2019 12:13
--- NOTE | 2019-11-20 14:30 | NUR ---
Fabiola drain to right abdomen removed by Dr. Tovar and ostomy bag applied.
[2019-11-20 15:00] VITALS: BP 140/77
--- NOTE | 2019-11-20 15:06 | PDOC ---
SURGICAL PROGRESS NOTE Subjective Pt with c/o some abd pain Vital Signs Vital Signs Date Time Temp Pulse Resp B/P (MAP) Pulse Ox O2 Delivery O2 Flow Rate FiO2 11/20/19 11:34 97 Room Air 11/20/19 11:08 31 11/20/19 11:00 99.2 119 163/69 (100) 99.2 11/19/19 21:40 2.0 I&O Intake and Output 11/20/19 07:00 Intake Total 5562 ml Output Total 1900 ml Balance 3662 ml IV Total 2527 ml Tube Feeding 2283 ml Blood Product IV Normal Saline Flush 526 ml Other 226 ml Output Urine Total 1165 ml Drainage Total 735 ml # Bowel Movements 5 General: Alert, Cooperative, mild distress Abdomen: Soft, No tenderness, Other (wound vac in place, right goyal and KAYLIN without suction and removed without difficulty, cont pancreatic necrosis drainage from RLQ goyal site) Labs Laboratory Tests Test 11/18/19 17:38 11/18/19 23:38 11/19/19 06:05 11/19/19 06:22 Glucose (Fingerstick) 131 mg/dL (70-99) 143 mg/dL (70-99) 139 mg/dL (70-99) White Blood Count 16.2 x10^3/uL (4.0-11.0) Red Blood Count 2.83 x10^6/uL (3.50-5.40) Hemoglobin 8.0 g/dL (12.0-15.5) Hematocrit 24.3 % (36.0-47.0) Mean Corpuscular Volume 86 fL (79-100) Mean Corpuscular Hemoglobin 28 pg (25-35) Mean Corpuscular Hemoglobin Concent 33 g/dL (31-37) Red Cell Distribution Width 17.2 % (11.5-14.5) Platelet Count 660 x10^3/uL (140-400) Neutrophils (%) (Auto) 83 % (31-73) Lymphocytes (%) (Auto) 10 % (24-48) Monocytes (%) (Auto) 6 % (0-9) Eosinophils (%) (Auto) 1 % (0-3) Basophils (%) (Auto) 0 % (0-3) Neutrophils # (Auto) 13.4 x10^3/uL (1.8-7.7) Lymphocytes # (Auto) 1.5 x10^3/uL (1.0-4.8) Monocytes # (Auto) 1.0 x10^3/uL (0.0-1.1) Eosinophils # (Auto) 0.2 x10^3/uL (0.0-0.7) Basophils # (Auto) 0.1 x10^3/uL (0.0-0.2) Sodium Level 130 mmol/L (136-145) Potassium Level 4.2 mmol/L (3.5-5.1) Chloride Level 101 mmol/L (98-107) Carbon Dioxide Level 27 mmol/L (21-32) Anion Gap 2 (6-14) Blood Urea Nitrogen 10 mg/dL (7-20) Creatinine 0.6 mg/dL (0.6-1.0) Estimated GFR (Cockcroft-Gault) 106.3 Glucose Level 143 mg/dL (70-99) Calcium Level 10.4 mg/dL (8.5-10.1) Test 11/19/19 11:48 11/19/19 18:08 11/19/19 23:58 11/20/19 05:40 Glucose (Fingerstick) 147 mg/dL (70-99) 142 mg/dL (70-99) 135 mg/dL (70-99) White Blood Count 13.6 x10^3/uL (4.0-11.0) Red Blood Count 2.50 x10^6/uL (3.50-5.40) Hemoglobin 6.9 g/dL (12.0-15.5) Hematocrit 21.8 % (36.0-47.0) Mean Corpuscular Volume 87 fL (79-100) Mean Corpuscular Hemoglobin 28 pg (25-35) Mean Corpuscular Hemoglobin Concent 32 g/dL (31-37) Red Cell Distribution Width 17.4 % (11.5-14.5) Platelet Count 608 x10^3/uL (140-400) Neutrophils (%) (Auto) 80 % (31-73) Lymphocytes (%) (Auto) 11 % (24-48) Monocytes (%) (Auto) 7 % (0-9) Eosinophils (%) (Auto) 2 % (0-3) Basophils (%) (Auto) 0 % (0-3) Neutrophils # (Auto) 10.9 x10^3/uL (1.8-7.7) Lymphocytes # (Auto) 1.5 x10^3/uL (1.0-4.8) Monocytes # (Auto) 0.9 x10^3/uL (0.0-1.1) Eosinophils # (Auto) 0.2 x10^3/uL (0.0-0.7) Basophils # (Auto) 0.1 x10^3/uL (0.0-0.2) Sodium Level 129 mmol/L (136-145) Potassium Level 4.9 mmol/L (3.5-5.1) Chloride Level 100 mmol/L (98-107) Carbon Dioxide Level 26 mmol/L (21-32) Anion Gap 3 (6-14) Blood Urea Nitrogen 8 mg/dL (7-20) Creatinine 0.5 mg/dL (0.6-1.0) Estimated GFR (Cockcroft-Gault) 131.1 Glucose Level 134 mg/dL (70-99) Calcium Level 9.9 mg/dL (8.5-10.1) Test 11/20/19 05:42 Glucose (Fingerstick) 147 mg/dL (70-99) Laboratory Tests Test 11/19/19 18:08 11/19/19 23:58 11/20/19 05:40 11/20/19 05:42 Glucose (Fingerstick) 142 mg/dL (70-99) 135 mg/dL (70-99) 147 mg/dL (70-99) White Blood Count 13.6 x10^3/uL (4.0-11.0) Red Blood Count 2.50 x10^6/uL (3.50-5.40) Hemoglobin 6.9 g/dL (12.0-15.5) Hematocrit 21.8 % (36.0-47.0) Mean Corpuscular Volume 87 fL (79-100) Mean Corpuscular Hemoglobin 28 pg (25-35) Mean Corpuscular Hemoglobin Concent 32 g/dL (31-37) Red Cell Distribution Width 17.4 % (11.5-14.5) Platelet Count 608 x10^3/uL (140-400) Neutrophils (%) (Auto) 80 % (31-73) Lymphocytes (%) (Auto) 11 % (24-48) Monocytes (%) (Auto) 7 % (0-9) Eosinophils (%) (Auto) 2 % (0-3) Basophils (%) (Auto) 0 % (0-3) Neutrophils # (Auto) 10.9 x10^3/uL (1.8-7.7) Lymphocytes # (Auto) 1.5 x10^3/uL (1.0-4.8) Monocytes # (Auto) 0.9 x10^3/uL (0.0-1.1) Eosinophils # (Auto) 0.2 x10^3/uL (0.0-0.7) Basophils # (Auto) 0.1 x10^3/uL (0.0-0.2) Sodium Level 129 mmol/L (136-145) Potassium Level 4.9 mmol/L (3.5-5.1) Chloride Level 100 mmol/L (98-107) Carbon Dioxide Level 26 mmol/L (21-32) Anion Gap 3 (6-14) Blood Urea Nitrogen 8 mg/dL (7-20) Creatinine 0.5 mg/dL (0.6-1.0) Estimated GFR (Cockcroft-Gault) 131.1 Glucose Level 134 mg/dL (70-99) Calcium Level 9.9 mg/dL (8.5-10.1) Problem List Problems Medical Problems: (1) Acute pancreatitis Status: Acute (2) Cholelithiasis Status: Acute Assessment/Plan s/p necrosectomy cont supportive care Justicifation of Admission Dx: Justifications for Admission: Justification of Admission Dx: Yes DAVON SIMMS MD Nov 20, 2019 15:06
[2019-11-20 15:56] LABS: HEMOGLOBIN 7.4 g/dL (12.0-15.5); RED BLOOD COUNT 2.66 x10^6/uL (3.50-5.40); RED CELL DISTRIBUTION WIDTH 17.7 % (11.5-14.5); WHITE BLOOD COUNT 13.9 x10^3/uL (4.0-11.0)
[2019-11-20 19:25] VITALS: BP 142/69
[2019-11-20] MEDS: IV NORMAL SALINE 1000ML BAG 1,000 ML IV SCH (20:55)
[2019-11-20 22:30] VITALS: BP 137/84
[2019-11-21] VITALS (7 sets, daily range): BP systolic 105–173; BP diastolic 55–95
[2019-11-21] MEDS: IPRATRPIUM/ALBUTEROL 0.5/2.5MG 3 ML NEBU. NEB SCH ×7 (03:35→23:54)
[2019-11-21] MEDS: ACETAMINOPHEN 650 MG SUPP.RECT. PR PRN ×2 (04:05→15:24)
[2019-11-21] MEDS: fentaNYL PF VIAL 100 MCG/2 ML VIAL IV PRN ×4 (04:05→09:39)
[2019-11-21 05:41] LABS: BASO % 0 % (0-3); EOS # 0.3 x10^3/uL (0.0-0.7); EOS % 2 % (0-3); HEMATOCRIT 23.5 % (36.0-47.0); HEMOGLOBIN 7.4 g/dL (12.0-15.5); LYMPH # 1.4 x10^3/uL (1.0-4.8); LYMPH % 10 % (24-48); MEAN CORPUSCULAR HEMOGLOBIN 27 pg (25-35); MEAN CORPUSCULAR HGB CONC 32 g/dL (31-37); MEAN CORPUSCULAR VOLUME 86 fL (79-100); MONO % 7 % (0-9); NEUT # 11.3 x10^3/uL (1.8-7.7); NEUT % 81 % (31-73); PLATELET COUNT 577 x10^3/uL (140-400); RED BLOOD COUNT 2.73 x10^6/uL (3.50-5.40); RED CELL DISTRIBUTION WIDTH 17.8 % (11.5-14.5)
[2019-11-21] MEDS: CEFTAZIDIME/AVIBACTAM 2.5 GM in IV NORMAL SALINE 250ML 250 ML IV SCH ×3 (05:46→21:34)
[2019-11-21 05:55] LABS: CALCIUM 10.7 mg/dL (8.5-10.1); CREATININE 0.7 mg/dL (0.6-1.0); GFR 88.9; POTASSIUM 4.2 mmol/L (3.5-5.1)
[2019-11-21] MEDS: INSULIN LISPRO 300 UNITS/3 ML VIAL. SQ SCH ×4 (06:00→23:19)
--- NOTE | 2019-11-21 07:18 | PDOC ---
Infectious Disease Note Subjective Subjective awake, says feeling ok, trach ROS ROS no n/v/d/sob/fever Vital Sign Vital Signs Vital Signs Date Time Temp Pulse Resp B/P (MAP) Pulse Ox O2 Delivery O2 Flow Rate FiO2 11/21/19 07:12 95 Room Air 11/21/19 05:30 124 154/65 (94) 11/21/19 05:25 26 11/21/19 03:00 99.3 99.3 Physical Exam PHYSICAL EXAM GENERAL: pt in bed, appears weak -comfortable -alert HEENT: Pupils equal, oral cavity dry. OC/Op - Dry NECK: Tracheostomy - no JVD LUNGS: Diminished aeration bases, CT on left HEART: S1, S2, ABDOMEN: Less Distended mild- bowel sounds hypoactive, soft, goyal x 2, KAYLIN drains, G-J tube. Some drainage around R quad tube again and mild insertion site irritation : Lind in place EXTREMITIES: Trace generalized edema, no cyanosis. Yeast in groin area SKIN: warm touch. No signs of rash. LUE- Previous PICC site without signs of complications. PIV s clean NEURO: - Alert and responsive PICC RUE - clean Labs Lab Laboratory Tests Test 11/20/19 14:00 11/20/19 17:23 11/20/19 23:34 11/21/19 05:25 White Blood Count 13.9 x10^3/uL (4.0-11.0) 14.0 x10^3/uL (4.0-11.0) Red Blood Count 2.66 x10^6/uL (3.50-5.40) 2.73 x10^6/uL (3.50-5.40) Hemoglobin 7.4 g/dL (12.0-15.5) 7.4 g/dL (12.0-15.5) Hematocrit 23.0 % (36.0-47.0) 23.5 % (36.0-47.0) Mean Corpuscular Volume 87 fL (79-100) 86 fL (79-100) Mean Corpuscular Hemoglobin 28 pg (25-35) 27 pg (25-35) Mean Corpuscular Hemoglobin Concent 32 g/dL (31-37) 32 g/dL (31-37) Red Cell Distribution Width 17.7 % (11.5-14.5) 17.8 % (11.5-14.5) Platelet Count 621 x10^3/uL (140-400) 577 x10^3/uL (140-400) Glucose (Fingerstick) 133 mg/dL (70-99) 120 mg/dL (70-99) Neutrophils (%) (Auto) 81 % (31-73) Lymphocytes (%) (Auto) 10 % (24-48) Monocytes (%) (Auto) 7 % (0-9) Eosinophils (%) (Auto) 2 % (0-3) Basophils (%) (Auto) 0 % (0-3) Neutrophils # (Auto) 11.3 x10^3/uL (1.8-7.7) Lymphocytes # (Auto) 1.4 x10^3/uL (1.0-4.8) Monocytes # (Auto) 1.0 x10^3/uL (0.0-1.1) Eosinophils # (Auto) 0.3 x10^3/uL (0.0-0.7) Basophils # (Auto) 0.0 x10^3/uL (0.0-0.2) Sodium Level 136 mmol/L (136-145) Potassium Level 4.2 mmol/L (3.5-5.1) Chloride Level 102 mmol/L (98-107) Carbon Dioxide Level 27 mmol/L (21-32) Anion Gap 7 (6-14) Blood Urea Nitrogen 8 mg/dL (7-20) Creatinine 0.7 mg/dL (0.6-1.0) Estimated GFR (Cockcroft-Gault) 88.9 Glucose Level 140 mg/dL (70-99) Calcium Level 10.7 mg/dL (8.5-10.1) Test 11/21/19 06:02 Glucose (Fingerstick) 143 mg/dL (70-99) Micro BC neg Objective Assessment Patient with prolonged hospitalization more than 4 months Multiple medical problems Multiple surgical procedures URINE with parapsilosis S/P Exp. 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 parapsilosis & PSAE (I-merrem/ceftazidime/AZT/cefepime)) Leukocytosis - better Loose stool but on tube feed - WBC down and no gross fever Fever - 7/25 c-diff neg Anemia Acute gallstone pancreatitis with persistent necrosis - 07/27. CT A/P Increased ascites. 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 status post KAYLIN drain placement; C. parapsilosis. s/p drain 08/23 + yeast & high amylase; s/p additional drain on 08/25. Drains removed. -08/23. fluid devyn parapsilosis fluid, amylase high - 09/23 showed multiple pseudocysts, slight larger on the right. s/p drains x 3, 09/24. + PSAE (MDRO-R Cefepime, Zosyn ALEXANDRA < 64) and yeast, -09/24 s/p drain replacement x 3; fluid cult PSAE (MDRO), yeast; treated -10/29 CT A/P shows smaller fluid collections. -722 CT abdomen and pelvis drains in place Ascites s/p paracentesis 08/02 & 08/23. C. parapsilosis Cholelithiasis with thickening of the gallbladder wall. JUANA, Hyperkalemia, Metabolic acidosis off dialysis Acute hypoxic resp failure. trach/vent. sputum 09/30 + PSAE (I merrem) ; sputum culture November 05+ for PSAE R Merrem, sensitive to cefepime Pleural effusion status post CTS left side Abdominal fluid culture MDRO Pseudomonas, yeast Sputum culture positive 11/05 for MDRO Pseudomonas Chest tube fluid positive for 11/07 Devyn Parapsilosis Plan Plan of Care Anemia per primary Electrolyes per primary Lind changed 11/13 Continue Avycaz 11/09 /micafungin 10/17 Restart daptomycin 11/12(CK <7 11/14) wean soon CBC/BMP in am Nystatin to groin UA and urine culture Blood culture/Cath tip neg - neg C. 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
[2019-11-21] MEDS: ACETYLCYSTEINE 20% for RESP TX 600 MG/3 ML. NEB SCH ×2 (08:21→19:36)
[2019-11-21] MEDS: PANTOPRAZOLE IV PUSH 40 MG VIAL. IVP SCH (08:24)
[2019-11-21] MEDS: fentaNYL 12MCG/HR PATCH 1 PATCH PATCH.TD72 TD SCH (08:25)
[2019-11-21] MEDS: ENOXAPARIN 40 MG/0.4 ML SYRINGE. SQ SCH (08:25)
[2019-11-21] MEDS: MICAFUNGIN 100 MG in IV DEXTROSE 5% 100ML 100 ML IV SCH (08:25)
--- NOTE | 2019-11-21 08:45 | PDOC ---
SURGICAL PROGRESS NOTE Subjective awake d/w nursing--significant drainage and leaking from old drain site Vital Signs Vital Signs Date Time Temp Pulse Resp B/P (MAP) Pulse Ox O2 Delivery O2 Flow Rate FiO2 11/21/19 08:25 95 Room Air 11/21/19 08:24 30 11/21/19 05:30 124 154/65 (94) 11/21/19 03:00 99.3 99.3 I&O Intake and Output 11/21/19 07:00 Intake Total 2635 ml Output Total 1300 ml Balance 1335 ml IV Total 450 ml Tube Feeding 1960 ml Other 225 ml Output Urine Total 950 ml Drainage Total 350 ml # Bowel Movements 5 PATIENT HAS A ROSARIO: Yes General: Cooperative, No acute distress Abdomen: Soft, Other (old drain site with drainage) Labs Laboratory Tests Test 11/19/19 11:48 11/19/19 18:08 11/19/19 23:58 11/20/19 05:40 Glucose (Fingerstick) 147 mg/dL (70-99) 142 mg/dL (70-99) 135 mg/dL (70-99) White Blood Count 13.6 x10^3/uL (4.0-11.0) Red Blood Count 2.50 x10^6/uL (3.50-5.40) Hemoglobin 6.9 g/dL (12.0-15.5) Hematocrit 21.8 % (36.0-47.0) Mean Corpuscular Volume 87 fL (79-100) Mean Corpuscular Hemoglobin 28 pg (25-35) Mean Corpuscular Hemoglobin Concent 32 g/dL (31-37) Red Cell Distribution Width 17.4 % (11.5-14.5) Platelet Count 608 x10^3/uL (140-400) Neutrophils (%) (Auto) 80 % (31-73) Lymphocytes (%) (Auto) 11 % (24-48) Monocytes (%) (Auto) 7 % (0-9) Eosinophils (%) (Auto) 2 % (0-3) Basophils (%) (Auto) 0 % (0-3) Neutrophils # (Auto) 10.9 x10^3/uL (1.8-7.7) Lymphocytes # (Auto) 1.5 x10^3/uL (1.0-4.8) Monocytes # (Auto) 0.9 x10^3/uL (0.0-1.1) Eosinophils # (Auto) 0.2 x10^3/uL (0.0-0.7) Basophils # (Auto) 0.1 x10^3/uL (0.0-0.2) Sodium Level 129 mmol/L (136-145) Potassium Level 4.9 mmol/L (3.5-5.1) Chloride Level 100 mmol/L (98-107) Carbon Dioxide Level 26 mmol/L (21-32) Anion Gap 3 (6-14) Blood Urea Nitrogen 8 mg/dL (7-20) Creatinine 0.5 mg/dL (0.6-1.0) Estimated GFR (Cockcroft-Gault) 131.1 Glucose Level 134 mg/dL (70-99) Calcium Level 9.9 mg/dL (8.5-10.1) Test 11/20/19 05:42 11/20/19 14:00 11/20/19 17:23 11/20/19 23:34 Glucose (Fingerstick) 147 mg/dL (70-99) 133 mg/dL (70-99) 120 mg/dL (70-99) White Blood Count 13.9 x10^3/uL (4.0-11.0) Red Blood Count 2.66 x10^6/uL (3.50-5.40) Hemoglobin 7.4 g/dL (12.0-15.5) Hematocrit 23.0 % (36.0-47.0) Mean Corpuscular Volume 87 fL (79-100) Mean Corpuscular Hemoglobin 28 pg (25-35) Mean Corpuscular Hemoglobin Concent 32 g/dL (31-37) Red Cell Distribution Width 17.7 % (11.5-14.5) Platelet Count 621 x10^3/uL (140-400) Test 11/21/19 05:25 11/21/19 06:02 White Blood Count 14.0 x10^3/uL (4.0-11.0) Red Blood Count 2.73 x10^6/uL (3.50-5.40) Hemoglobin 7.4 g/dL (12.0-15.5) Hematocrit 23.5 % (36.0-47.0) Mean Corpuscular Volume 86 fL (79-100) Mean Corpuscular Hemoglobin 27 pg (25-35) Mean Corpuscular Hemoglobin Concent 32 g/dL (31-37) Red Cell Distribution Width 17.8 % (11.5-14.5) Platelet Count 577 x10^3/uL (140-400) Neutrophils (%) (Auto) 81 % (31-73) Lymphocytes (%) (Auto) 10 % (24-48) Monocytes (%) (Auto) 7 % (0-9) Eosinophils (%) (Auto) 2 % (0-3) Basophils (%) (Auto) 0 % (0-3) Neutrophils # (Auto) 11.3 x10^3/uL (1.8-7.7) Lymphocytes # (Auto) 1.4 x10^3/uL (1.0-4.8) Monocytes # (Auto) 1.0 x10^3/uL (0.0-1.1) Eosinophils # (Auto) 0.3 x10^3/uL (0.0-0.7) Basophils # (Auto) 0.0 x10^3/uL (0.0-0.2) Sodium Level 136 mmol/L (136-145) Potassium Level 4.2 mmol/L (3.5-5.1) Chloride Level 102 mmol/L (98-107) Carbon Dioxide Level 27 mmol/L (21-32) Anion Gap 7 (6-14) Blood Urea Nitrogen 8 mg/dL (7-20) Creatinine 0.7 mg/dL (0.6-1.0) Estimated GFR (Cockcroft-Gault) 88.9 Glucose Level 140 mg/dL (70-99) Calcium Level 10.7 mg/dL (8.5-10.1) Glucose (Fingerstick) 143 mg/dL (70-99) Laboratory Tests Test 11/20/19 14:00 11/20/19 17:23 11/20/19 23:34 11/21/19 05:25 White Blood Count 13.9 x10^3/uL (4.0-11.0) 14.0 x10^3/uL (4.0-11.0) Red Blood Count 2.66 x10^6/uL (3.50-5.40) 2.73 x10^6/uL (3.50-5.40) Hemoglobin 7.4 g/dL (12.0-15.5) 7.4 g/dL (12.0-15.5) Hematocrit 23.0 % (36.0-47.0) 23.5 % (36.0-47.0) Mean Corpuscular Volume 87 fL (79-100) 86 fL (79-100) Mean Corpuscular Hemoglobin 28 pg (25-35) 27 pg (25-35) Mean Corpuscular Hemoglobin Concent 32 g/dL (31-37) 32 g/dL (31-37) Red Cell Distribution Width 17.7 % (11.5-14.5) 17.8 % (11.5-14.5) Platelet Count 621 x10^3/uL (140-400) 577 x10^3/uL (140-400) Glucose (Fingerstick) 133 mg/dL (70-99) 120 mg/dL (70-99) Neutrophils (%) (Auto) 81 % (31-73) Lymphocytes (%) (Auto) 10 % (24-48) Monocytes (%) (Auto) 7 % (0-9) Eosinophils (%) (Auto) 2 % (0-3) Basophils (%) (Auto) 0 % (0-3) Neutrophils # (Auto) 11.3 x10^3/uL (1.8-7.7) Lymphocytes # (Auto) 1.4 x10^3/uL (1.0-4.8) Monocytes # (Auto) 1.0 x10^3/uL (0.0-1.1) Eosinophils # (Auto) 0.3 x10^3/uL (0.0-0.7) Basophils # (Auto) 0.0 x10^3/uL (0.0-0.2) Sodium Level 136 mmol/L (136-145) Potassium Level 4.2 mmol/L (3.5-5.1) Chloride Level 102 mmol/L (98-107) Carbon Dioxide Level 27 mmol/L (21-32) Anion Gap 7 (6-14) Blood Urea Nitrogen 8 mg/dL (7-20) Creatinine 0.7 mg/dL (0.6-1.0) Estimated GFR (Cockcroft-Gault) 88.9 Glucose Level 140 mg/dL (70-99) Calcium Level 10.7 mg/dL (8.5-10.1) Test 11/21/19 06:02 Glucose (Fingerstick) 143 mg/dL (70-99) Problem List Problems Medical Problems: (1) Acute pancreatitis Status: Acute (2) Cholelithiasis Status: Acute Assessment/Plan will ask wound care to eval for better skin protection to wound site Justicifation of Admission Dx: Justifications for Admission: Justification of Admission Dx: Yes 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 APRN Nov 21, 2019 08:45
--- NOTE | 2019-11-21 09:20 | PDOC ---
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 Metabolic encephalopathy. Fevers. Metabolic acidosis. Diffuse pulmonary infiltrate. Pleural effusion. Pancreatitis, necrotizing. Gallstone. Leukocytosis. Lymphopenia. Electrolytes imbalances. Hyperglycemia. DM. HTN. HLD. Anemia. Abnormal CXR. Obesity. Ascites and pleural effusion Ileus with vomiting Anemia JUANA Hyperkalemia Metabolic acidosis Hypertension S/P trache, back on vent Anemia S/P IR drain placement, 09/24 She had exploratory laparotomy, lysis of adhesions, subtotal cholecystectomy with cholangiogram, gastrojejunostomy tube placement, pancreatic necrosectomy on 10/17 Plan Keppra if she has further seizures. Treat medical diseases. Subjective Indicates no pain Objective Vital Signs Date Time Temp Pulse Resp B/P (MAP) Pulse Ox O2 Delivery O2 Flow Rate FiO2 11/21/19 08:25 95 Room Air 11/21/19 08:24 30 11/21/19 05:30 124 154/65 (94) 11/21/19 03:00 99.3 99.3 Intake and Output 11/21/19 07:00 Intake Total 2635 ml Output Total 1300 ml Balance 1335 ml IV Total 450 ml Tube Feeding 1960 ml Other 225 ml Output Urine Total 950 ml Drainage Total 350 ml # Bowel Movements 5 PHYSICAL EXAM Alert, off vent, trache capped, attempts to verbalize, follows commands PERRL. EOMI. CN: no focal findings. Muscle tone: normal. Muscle strength: 3/5 strength DTR: 1+ Plantar reflex: Silent Gait: not examined in bed. Sensory exam: nonfocal Cerebellar: not testable Review of Relevant I have reviewed the following items kolby (where applicable) has been applied. Labs Laboratory Tests Test 11/19/19 11:48 11/19/19 18:08 11/19/19 23:58 11/20/19 05:40 Glucose (Fingerstick) 147 mg/dL (70-99) 142 mg/dL (70-99) 135 mg/dL (70-99) White Blood Count 13.6 x10^3/uL (4.0-11.0) Red Blood Count 2.50 x10^6/uL (3.50-5.40) Hemoglobin 6.9 g/dL (12.0-15.5) Hematocrit 21.8 % (36.0-47.0) Mean Corpuscular Volume 87 fL (79-100) Mean Corpuscular Hemoglobin 28 pg (25-35) Mean Corpuscular Hemoglobin Concent 32 g/dL (31-37) Red Cell Distribution Width 17.4 % (11.5-14.5) Platelet Count 608 x10^3/uL (140-400) Neutrophils (%) (Auto) 80 % (31-73) Lymphocytes (%) (Auto) 11 % (24-48) Monocytes (%) (Auto) 7 % (0-9) Eosinophils (%) (Auto) 2 % (0-3) Basophils (%) (Auto) 0 % (0-3) Neutrophils # (Auto) 10.9 x10^3/uL (1.8-7.7) Lymphocytes # (Auto) 1.5 x10^3/uL (1.0-4.8) Monocytes # (Auto) 0.9 x10^3/uL (0.0-1.1) Eosinophils # (Auto) 0.2 x10^3/uL (0.0-0.7) Basophils # (Auto) 0.1 x10^3/uL (0.0-0.2) Sodium Level 129 mmol/L (136-145) Potassium Level 4.9 mmol/L (3.5-5.1) Chloride Level 100 mmol/L (98-107) Carbon Dioxide Level 26 mmol/L (21-32) Anion Gap 3 (6-14) Blood Urea Nitrogen 8 mg/dL (7-20) Creatinine 0.5 mg/dL (0.6-1.0) Estimated GFR (Cockcroft-Gault) 131.1 Glucose Level 134 mg/dL (70-99) Calcium Level 9.9 mg/dL (8.5-10.1) Test 11/20/19 05:42 11/20/19 14:00 11/20/19 17:23 11/20/19 23:34 Glucose (Fingerstick) 147 mg/dL (70-99) 133 mg/dL (70-99) 120 mg/dL (70-99) White Blood Count 13.9 x10^3/uL (4.0-11.0) Red Blood Count 2.66 x10^6/uL (3.50-5.40) Hemoglobin 7.4 g/dL (12.0-15.5) Hematocrit 23.0 % (36.0-47.0) Mean Corpuscular Volume 87 fL (79-100) Mean Corpuscular Hemoglobin 28 pg (25-35) Mean Corpuscular Hemoglobin Concent 32 g/dL (31-37) Red Cell Distribution Width 17.7 % (11.5-14.5) Platelet Count 621 x10^3/uL (140-400) Test 11/21/19 05:25 11/21/19 06:02 White Blood Count 14.0 x10^3/uL (4.0-11.0) Red Blood Count 2.73 x10^6/uL (3.50-5.40) Hemoglobin 7.4 g/dL (12.0-15.5) Hematocrit 23.5 % (36.0-47.0) Mean Corpuscular Volume 86 fL (79-100) Mean Corpuscular Hemoglobin 27 pg (25-35) Mean Corpuscular Hemoglobin Concent 32 g/dL (31-37) Red Cell Distribution Width 17.8 % (11.5-14.5) Platelet Count 577 x10^3/uL (140-400) Neutrophils (%) (Auto) 81 % (31-73) Lymphocytes (%) (Auto) 10 % (24-48) Monocytes (%) (Auto) 7 % (0-9) Eosinophils (%) (Auto) 2 % (0-3) Basophils (%) (Auto) 0 % (0-3) Neutrophils # (Auto) 11.3 x10^3/uL (1.8-7.7) Lymphocytes # (Auto) 1.4 x10^3/uL (1.0-4.8) Monocytes # (Auto) 1.0 x10^3/uL (0.0-1.1) Eosinophils # (Auto) 0.3 x10^3/uL (0.0-0.7) Basophils # (Auto) 0.0 x10^3/uL (0.0-0.2) Sodium Level 136 mmol/L (136-145) Potassium Level 4.2 mmol/L (3.5-5.1) Chloride Level 102 mmol/L (98-107) Carbon Dioxide Level 27 mmol/L (21-32) Anion Gap 7 (6-14) Blood Urea Nitrogen 8 mg/dL (7-20) Creatinine 0.7 mg/dL (0.6-1.0) Estimated GFR (Cockcroft-Gault) 88.9 Glucose Level 140 mg/dL (70-99) Calcium Level 10.7 mg/dL (8.5-10.1) Glucose (Fingerstick) 143 mg/dL (70-99) Laboratory Tests Test 11/20/19 14:00 11/20/19 17:23 11/20/19 23:34 11/21/19 05:25 White Blood Count 13.9 x10^3/uL (4.0-11.0) 14.0 x10^3/uL (4.0-11.0) Red Blood Count 2.66 x10^6/uL (3.50-5.40) 2.73 x10^6/uL (3.50-5.40) Hemoglobin 7.4 g/dL (12.0-15.5) 7.4 g/dL (12.0-15.5) Hematocrit 23.0 % (36.0-47.0) 23.5 % (36.0-47.0) Mean Corpuscular Volume 87 fL (79-100) 86 fL (79-100) Mean Corpuscular Hemoglobin 28 pg (25-35) 27 pg (25-35) Mean Corpuscular Hemoglobin Concent 32 g/dL (31-37) 32 g/dL (31-37) Red Cell Distribution Width 17.7 % (11.5-14.5) 17.8 % (11.5-14.5) Platelet Count 621 x10^3/uL (140-400) 577 x10^3/uL (140-400) Glucose (Fingerstick) 133 mg/dL (70-99) 120 mg/dL (70-99) Neutrophils (%) (Auto) 81 % (31-73) Lymphocytes (%) (Auto) 10 % (24-48) Monocytes (%) (Auto) 7 % (0-9) Eosinophils (%) (Auto) 2 % (0-3) Basophils (%) (Auto) 0 % (0-3) Neutrophils # (Auto) 11.3 x10^3/uL (1.8-7.7) Lymphocytes # (Auto) 1.4 x10^3/uL (1.0-4.8) Monocytes # (Auto) 1.0 x10^3/uL (0.0-1.1) Eosinophils # (Auto) 0.3 x10^3/uL (0.0-0.7) Basophils # (Auto) 0.0 x10^3/uL (0.0-0.2) Sodium Level 136 mmol/L (136-145) Potassium Level 4.2 mmol/L (3.5-5.1) Chloride Level 102 mmol/L (98-107) Carbon Dioxide Level 27 mmol/L (21-32) Anion Gap 7 (6-14) Blood Urea Nitrogen 8 mg/dL (7-20) Creatinine 0.7 mg/dL (0.6-1.0) Estimated GFR (Cockcroft-Gault) 88.9 Glucose Level 140 mg/dL (70-99) Calcium Level 10.7 mg/dL (8.5-10.1) Test 11/21/19 06:02 Glucose (Fingerstick) 143 mg/dL (70-99) Microbiology 11/13/19 Gram Stain - Final, Complete 11/13/19 Aerobic Culture - Final, Complete 11/13/19 Blood Culture - Final, Complete NO GROWTH AFTER 5 DAYS 11/13/19 Urine Culture - Final, Complete 11/08/19 Gram Stain - Final, Complete 11/08/19 Aerobic and Anaerobic Culture - Final, Complete 11/06/19 Gram Stain Evaluation - Final, Complete 11/06/19 Respiratory Culture - Final, Complete 11/06/19 Antimicrobic Susceptibility - Final, Complete 10/18/19 Gram Stain - Final, Complete 10/18/19 Aerobic and Anaerobic Culture - Final, Complete 10/18/19 Antimicrobic Susceptibility - Final, Complete Medications Current Medications Sodium Chloride 1,000 ml @ 1,000 mls/hr Q1H IV Last administered on 07/04/19at 03:00; Start 07/04/19 at 03:00; Stop 07/04/19 at 03:59; Status DC Ondansetron HCl (Zofran) 4 mg 1X ONCE IVP Last administered on 07/04/19at 03:27; Start 07/04/19 at 03:00; Stop 07/04/19 at 03:01; Status DC Morphine Sulfate (Morphine Sulfate) 4 mg 1X ONCE IV ; Start 07/04/19 at 03:00; Stop 07/04/19 at 03:01; Status Cancel Ketorolac Tromethamine (Toradol 30mg Vial) 30 mg 1X ONCE IV Last administered on 07/04/19at 02:54; Start 07/04/19 at 03:00; Stop 07/04/19 at 03:01; Status DC Fentanyl Citrate (Fentanyl 2ml Vial) 25 mcg 1X ONCE IVP Last administered on 07/04/19at 03:23; Start 07/04/19 at 03:30; Stop 07/04/19 at 03:31; Status DC Fentanyl Citrate (Fentanyl 2ml Vial) 100 mcg STK-MED ONCE .ROUTE ; Start 07/04/19 at 03:18; Stop 07/04/19 at 03:18; Status DC Iohexol (Omnipaque 350 Mg/ml) 90 ml 1X ONCE IV Last administered on 07/04/19at 03:25; Start 07/04/19 at 03:30; Stop 07/04/19 at 03:31; Status DC Info (CONTRAST GIVEN -- Rx MONITORING) 1 each PRN DAILY PRN MC SEE COMMENTS; Start 07/04/19 at 03:30; Stop 07/06/19 at 03:29; Status DC Hydromorphone HCl (Dilaudid) 0.5 mg 1X ONCE IV Last administered on 07/04/19at 03:55; Start 07/04/19 at 04:30; Stop 07/04/19 at 04:32; Status DC Ondansetron HCl (Zofran) 4 mg PRN Q8HRS PRN IV NAUSEA/VOMITING 1ST CHOICE; Start 07/04/19 at 05:00; Stop 07/04/19 at 09:27; Status DC Morphine Sulfate (Morphine Sulfate) 2 mg PRN Q2HR PRN IV SEVERE PAIN 7-10 Last administered on 07/05/19at 12:26; Start 07/04/19 at 05:00; Stop 07/05/19 at 14:15; Status DC Sodium Chloride 1,000 ml @ 125 mls/hr Q8H IV Last administered on 07/04/19at 20:56; Start 07/04/19 at 05:00; Stop 07/05/19 at 04:59; Status DC Hydromorphone HCl (Dilaudid) 0.5 mg PRN Q3HRS PRN IV SEVERE PAIN 7-10 Last administered on 07/05/19at 10:06; Start 07/04/19 at 05:00; Stop 07/05/19 at 12:01; Status DC Piperacillin Sod/ Tazobactam Sod 4.5 gm/Sodium Chloride 100 ml @ 200 mls/hr 1X ONCE IV Last administered on 07/04/19at 05:44; Start 07/04/19 at 06:00; Stop 07/04/19 at 06:29; Status DC Ondansetron HCl (Zofran) 4 mg PRN Q4HRS PRN IV NAUSEA/VOMITING 1ST CHOICE Last administered on 11/19/19at 06:39; Start 07/04/19 at 09:30 Insulin Human Lispro (HumaLOG) 0-9 UNITS Q6HRS SQ Last administered on 11/18/19at 12:15; Start 07/04/19 at 09:30 Dextrose (Dextrose 50%-Water Syringe) 12.5 gm PRN Q15MIN PRN IV SEE COMMENTS; Start 07/04/19 at 09:30 Pantoprazole Sodium (PROTONIX VIAL for IV PUSH) 40 mg DAILYAC IVP Last admini stered on 11/21/19at 08:24; Start 07/04/19 at 11:30 Prochlorperazine Edisylate (Compazine) 10 mg PRN Q6HRS PRN IV NAUSEA/VOMITING, 2nd CHOICE Last administered on 11/14/19at 09:49; Start 07/04/19 at 17:45 Atenolol (Tenormin) 100 mg DAILY PO ; Start 07/05/19 at 09:00; Stop 07/04/19 at 20:08; Status DC Metoprolol Tartrate (Lopressor Vial) 2.5 mg Q6HRS IVP Last administered on 07/05/19at 05:51; Start 07/04/19 at 20:15; Stop 07/05/19 at 10:02; Status DC Metoprolol Tartrate (Lopressor Vial) 5 mg Q6HRS IVP Last administered on 07/14/19at 00:12; Start 07/05/19 at 10:15; Stop 07/16/19 at 08:48; Status DC Hydromorphone HCl (Dilaudid) 1 mg PRN Q3HRS PRN IV SEVERE PAIN 7-10 Last administered on 07/11/19at 05:13; Start 07/05/19 at 12:00; Stop 07/19/19 at 00:25; Status DC Lidocaine HCl (Buffered Lidocaine 1%) 3 ml STK-MED ONCE .ROUTE ; Start 07/05/19 at 12:55; Stop 07/05/19 at 12:56; Status DC Albumin Human 500 ml @ 125 mls/hr 1X ONCE IV Last administered on 07/05/19at 14:33; Start 07/05/19 at 14:30; Stop 07/05/19 at 18:32; Status DC Norepinephrine Bitartrate 8 mg/ Dextrose 258 ml @ 17.299 mls/ hr CONT PRN IV PER PROTOCOL Last administered on 08/02/19at 12:48; Start 07/05/19 at 15:30; Stop 08/05/19 at 09:19; Status DC Sodium Chloride 1,000 ml @ 125 mls/hr Q8H IV Last administered on 07/05/19at 21:04; Start 07/05/19 at 16:00; Stop 07/06/19 at 02:42; Status DC Albumin Human 500 ml @ 125 mls/hr PRN BID PRN IV After every 2L NSS & BP < 90mm Last administered on 10/18/19at 16:06; Start 07/05/19 at 16:00; Stop 10/21/19 at 09:30; Status DC Iohexol (Omnipaque 300 Mg/ml) 60 ml 1X ONCE IV Last administered on 07/05/19at 17:20; Start 07/05/19 at 17:00; Stop 07/05/19 at 17:01; Status DC Info (CONTRAST GIVEN -- Rx MONITORING) 1 each PRN DAILY PRN MC SEE COMMENTS; Start 07/05/19 at 17:00; Stop 07/07/19 at 16:59; Status DC Meropenem 1 gm/ Sodium Chloride 100 ml @ 200 mls/hr Q8HRS IV Last administered on 07/06/19at 05:45; Start 07/05/19 at 20:00; Stop 07/06/19 at 08:48; Status DC Furosemide (Lasix) 40 mg 1X ONCE IVP Last administered on 07/05/19at 22:12; Start 07/05/19 at 22:30; Stop 07/05/19 at 22:31; Status DC Calcium Chloride 1000 mg/Sodium Chloride 110 ml @ 220 mls/hr 1X ONCE IV Last administered on 07/05/19at 22:11; Start 07/05/19 at 22:30; Stop 07/05/19 at 22:59; Status DC Albuterol Sulfate (Ventolin Neb Soln) 2.5 mg 1X ONCE NEB Last administered on 07/06/19at 00:56; Start 07/05/19 at 22:30; Stop 07/05/19 at 22:31; Status DC Insulin Human Regular (HumuLIN R VIAL) 5 unit 1X ONCE IV Last administered on 07/05/19at 22:14; Start 07/05/19 at 22:30; Stop 07/05/19 at 22:31; Status DC Magnesium Sulfate 50 ml @ 25 mls/hr 1X ONCE IV Last administered on 07/06/19at 02:57; Start 07/06/19 at 03:00; Stop 07/06/19 at 04:59; Status DC Calcium Gluconate 1000 mg/Sodium Chloride 110 ml @ 220 mls/hr 1X ONCE IV Last administered on 07/06/19at 02:46; Start 07/06/19 at 03:00; Stop 07/06/19 at 03:29; Status DC Sodium Chloride 1,000 ml @ 200 mls/hr Q5H IV Last administered on 07/06/19at 02:46; Start 07/06/19 at 03:00; Stop 07/06/19 at 10:21; Status DC Calcium Gluconate 1000 mg/Sodium Chloride 110 ml @ 220 mls/hr 1X ONCE IV Last administered on 07/06/19at 03:21; Start 07/06/19 at 03:30; Stop 07/06/19 at 03:59; Status DC Sodium Bicarbonate 50 meq/Sodium Chloride 1,050 ml @ 75 mls/hr Q14H IV Last administered on 07/10/19at 21:10; Start 07/06/19 at 07:30; Stop 07/11/19 at 10:28; Status DC Calcium Gluconate 2000 mg/Sodium Chloride 120 ml @ 220 mls/hr 1X ONCE IV Last administered on 07/06/19at 09:05; Start 07/06/19 at 07:30; Stop 07/06/19 at 08:02; Status DC Lidocaine HCl (Xylocaine-Mpf 1% 2ml Vial) 2 ml STK-MED ONCE .ROUTE ; Start 07/06/19 at 08:47; Stop 07/06/19 at 08:47; Status DC Meropenem 500 mg/ Sodium Chloride 50 ml @ 100 mls/hr Q12HR IV Last administered on 07/11/19at 21:01; Start 07/06/19 at 18:00; Stop 07/12/19 at 07:58; Status DC Lidocaine HCl (Buffered Lidocaine 1%) 3 ml STK-MED ONCE .ROUTE ; Start 07/06/19 at 09:46; Stop 07/06/19 at 09:46; Status DC Lidocaine HCl (Buffered Lidocaine 1%) 6 ml 1X ONCE INJ Last administered on 07/06/19at 10:26; Start 07/06/19 at 10:15; Stop 07/06/19 at 10:16; Status DC Info (Tpn Per Pharmacy) 1 each PRN DAILY PRN MC SEE COMMENTS Last administered on 11/13/19at 08:31; Start 07/06/19 at 12:00; Stop 11/13/19 at 10:41; Status DC Sodium Chloride 1,000 ml @ 1,000 mls/hr Q1H PRN IV hypotension; Start 07/06/19 at 12:07; Stop 07/06/19 at 18:06; Status DC Diphenhydramine HCl (Benadryl) 25 mg 1X PRN PRN IV ITCHING; Start 07/06/19 at 12:15; Stop 07/07/19 at 12:14; Status DC Diphenhydramine HCl (Benadryl) 25 mg 1X PRN PRN IV ITCHING; Start 07/06/19 at 12:15; Stop 07/07/19 at 12:14; Status DC Sodium Chloride 1,000 ml @ 400 mls/hr Q2H30M PRN IV PATENCY; Start 07/06/19 at 12:07; Stop 07/07/19 at 00:06; Status DC Info (PHARMACY MONITORING -- do not chart) 1 each PRN DAILY PRN MC SEE COMMENTS; Start 07/06/19 at 12:15; Stop 07/08/19 at 08:13; Status DC Sodium Chloride 90 meq/Calcium Gluconate 10 meq/ Multivitamins 10 ml/Chromium/ Copper/Manganese/ Seleni/Zn 1 ml/ Total Parenteral Nutrition/Amino Acids/Dextrose/ Fat Emulsion Intravenous 55.005 ml @ 2.292 mls/hr TPN CONT IV ; Start 07/06/19 at 22:00; Stop 07/06/19 at 12:33; Status DC Info (Tpn Per Pharmacy) 1 each PRN DAILY PRN MC SEE COMMENTS; Start 07/06/19 at 12:30; Status UNV Sodium Chloride 90 meq/Calcium Gluconate 10 meq/ Multivitamins 10 ml/Chromium/ Copper/Manganese/ Seleni/Zn 0.5 ml/ Total Parenteral Nutrition/Amino Acids/Dextrose/ Fat Emulsion Intravenous 1,512 ml @ 63 mls/hr TPN CONT IV Last administered on 07/06/19at 22:06; Start 07/06/19 at 22:00; Stop 07/07/19 at 21:59; Status DC Calcium Carbonate/ Glycine (Tums) 500 mg PRN AFTMEALHC PRN PO INDIGESTION; Start 07/06/19 at 17:45; Stop 08/31/19 at 10:25; Status DC Calcium Gluconate (Calcium Gluconate) 2,000 mg 1X ONCE IVP Last administered on 07/07/19at 02:19; Start 07/07/19 at 02:15; Stop 07/07/19 at 02:16; Status DC Calcium Chloride 3000 mg/Sodium Chloride 1,030 ml @ 50 mls/hr [id number] IV Last administered on 07/09/19at 02:17; Start 07/07/19 at 08:00; Stop 07/09/19 at 15:23; Status DC Lorazepam (Ativan Inj) 1 mg PRN Q4HRS PRN IVP ANXIETY / AGITATION, 2nd choic Last administered on 08/05/19at 03:51; Start 07/07/19 at 09:00; Stop 08/05/19 at 09:19; Status DC Sodium Chloride 1,000 ml @ 1,000 mls/hr Q1H PRN IV hypotension; Start 07/07/19 at 08:56; Stop 07/07/19 at 14:55; Status DC Albumin Human 200 ml @ 200 mls/hr 1X PRN PRN IV Hypotension; Start 07/07/19 at 09:00; Stop 07/07/19 at 14:59; Status DC Diphenhydramine HCl (Benadryl) 25 mg 1X PRN PRN IV ITCHING; Start 07/07/19 at 09:00; Stop 07/08/19 at 08:59; Status DC Diphenhydramine HCl (Benadryl) 25 mg 1X PRN PRN IV ITCHING; Start 07/07/19 at 09:00; Stop 07/08/19 at 08:59; Status DC Sodium Chloride 1,000 ml @ 400 mls/hr Q2H30M PRN IV PATENCY; Start 07/07/19 at 08:56; Stop 07/07/19 at 20:55; Status DC Info (PHARMACY MONITORING -- do not chart) 1 each PRN DAILY PRN MC SEE COMMENTS; Start 07/07/19 at 09:00; Status UNV Info (PHARMACY MONITORING -- do not chart) 1 each PRN DAILY PRN MC SEE COMMENTS; Start 07/07/19 at 09:00; Stop 07/08/19 at 08:13; Status DC Digoxin (Lanoxin) 500 mcg 1X ONCE IV Last administered on 07/07/19at 10:04; Start 07/07/19 at 10:00; Stop 07/07/19 at 10:01; Status DC Digoxin (Lanoxin) 125 mcg 1X ONCE IV Last administered on 07/07/19at 17:10; Start 07/07/19 at 18:00; Stop 07/07/19 at 18:01; Status DC Magnesium Sulfate 100 ml @ 25 mls/hr 1X ONCE IV Last administered on 07/06at 12:48; Start 07/07/19 at 13:00; Stop 07/07/19 at 16:59; Status DC Sodium Chloride 90 meq/Magnesium Sulfate 10 meq/ Calcium Gluconate 20 meq/ Multivitamins 10 ml/Chromium/ Copper/Manganese/ Seleni/Zn 0.5 ml/ Total Parenteral Nutrition/Amino Acids/Dextrose/ Fat Emulsion Intravenous 1,512 ml @ 63 mls/hr TPN CONT IV Last administered on 07/07/19at 22:25; Start 07/07/19 at 22:00; Stop 07/08/19 at 21:59; Status DC Sodium Chloride 1,000 ml @ 1,000 mls/hr Q1H PRN IV hypotension; Start 07/08/19 at 08:05; Stop 07/08/19 at 14:04; Status DC Albumin Human 200 ml @ 200 mls/hr 1X ONCE IV Last administered on 07/08/19at 08:57; Start 07/08/19 at 08:15; Stop 07/08/19 at 09:14; Status DC Diphenhydramine HCl (Benadryl) 25 mg 1X PRN PRN IV ITCHING; Start 07/08/19 at 08:15; Stop 07/09/19 at 08:14; Status DC Diphenhydramine HCl (Benadryl) 25 mg 1X PRN PRN IV ITCHING; Start 07/08/19 at 08:15; Stop 07/09/19 at 08:14; Status DC Sodium Chloride 1,000 ml @ 400 mls/hr Q2H30M PRN IV PATENCY; Start 07/08/19 at 08:05; Stop 07/08/19 at 20:04; Status DC Info (PHARMACY MONITORING -- do not chart) 1 each PRN DAILY PRN MC SEE COMMENTS; Start 07/08/19 at 08:15; Stop 07/12/19 at 07:57; Status DC Sodium Chloride 90 meq/Potassium Chloride 15 meq/ Potassium Phosphate 10 mmol/ Magnesium Sulfate 10 meq/Calcium Gluconate 20 meq/ Multivitamins 10 ml/Chromium/ Copper/Manganese/ Seleni/Zn 0.5 ml/ Total Parenteral Nutrition/Amino Acids/Dextrose/ Fat Emulsion Intravenous 1,512 ml @ 63 mls/hr TPN CONT IV Last administered on 07/08/19at 21:01; Start 07/08/19 at 22:00; Stop 07/09/19 at 21:59; Status DC Potassium Chloride/Water 100 ml @ 100 mls/hr 1X ONCE IV Last administered on 07/08/19at 14:09; Start 07/08/19 at 14:00; Stop 07/08/19 at 14:59; Status DC Benzocaine (Hurricaine One) 1 spray 1X ONCE MM Last administered on 07/08/19at 16:38; Start 07/08/19 at 14:30; Stop 07/08/19 at 14:31; Status DC Lidocaine HCl (Glydo (Lidocaine) Jelly) 1 ramu 1X ONCE MM Last administered on 07/08/19at 16:38; Start 07/08/19 at 14:30; Stop 07/08/19 at 14:31; Status DC Linezolid/Dextrose 300 ml @ 300 mls/hr Q12HR IV Last administered on 07/14/19at 21:04; Start 07/08/19 at 20:00; Stop 07/15/19 at 07:50; Status DC Acetaminophen (Tylenol) 650 mg PRN Q6HRS PRN PO MILD PAIN / TEMP; Start 07/09/19 at 03:30; Stop 07/09/19 at 03:36; Status DC Acetaminophen (Tylenol) 650 mg PRN Q6HRS PRN PEG MILD PAIN / TEMP Last administered on 08/04/19at 19:56; Start 07/09/19 at 03:36; Stop 08/31/19 at 10:25; Status DC Sodium Chloride 1,000 ml @ 1,000 mls/hr Q1H PRN IV hypotension; Start 07/09/19 at 07:50; Stop 07/09/19 at 13:49; Status DC Albumin Human 200 ml @ 200 mls/hr 1X PRN PRN IV Hypotension; Start 07/09/19 at 08:00; Stop 07/09/19 at 13:59; Status DC Sodium Chloride (Normal Saline Flush) 10 ml 1X PRN PRN IV AP catheter pack; Start 07/09/19 at 08:00; Stop 07/10/19 at 07:59; Status DC Sodium Chloride (Normal Saline Flush) 10 ml 1X PRN PRN IV [employer] catheter pack; Start 07/09/19 at 08:00; Stop 07/10/19 at 07:59; Status DC Sodium Chloride 1,000 ml @ 400 mls/hr Q2H30M PRN IV PATENCY; Start 07/09/19 at 07:50; Stop 07/09/19 at 19:49; Status DC Info (PHARMACY MONITORING -- do not chart) 1 each PRN DAILY PRN MC SEE COMMENTS; Start 07/09/19 at 08:00; Status UNV Info (PHARMACY MONITORING -- do not chart) 1 each PRN DAILY PRN MC SEE COMMENTS; Start 07/09/19 at 08:00; Stop 07/11/19 at 08:25; Status DC Sodium Chloride 90 meq/Potassium Chloride 15 meq/ Potassium Phosphate 10 mmol/ Magnesium Sulfate 10 meq/Calcium Gluconate 20 meq/ Multivitamins 10 ml/Chromium/ Copper/Manganese/ Seleni/Zn 0.5 ml/ Total Parenteral Nutrition/Amino Acids/Dextrose/ Fat Emulsion Intravenous 1,512 ml @ 63 mls/hr TPN CONT IV Last administered on 07/09/19at 20:57; Start 07/09/19 at 22:00; Stop 07/10/19 at 21:59; Status DC Sodium Chloride 90 meq/Potassium Chloride 15 meq/ Potassium Phosphate 15 mmol/ Magnesium Sulfate 10 meq/Calcium Gluconate 20 meq/ Multivitamins 10 ml/Chromium/ Copper/Manganese/ Seleni/Zn 0.5 ml/ Total Parenteral Nutrition/Amino Acids/Dextrose/ Fat Emulsion Intravenous 1,512 ml @ 63 mls/hr TPN CONT IV ; Start 07/10/19 at 22:00; Stop 07/10/19 at 14:16; Status DC Sodium Chloride 90 meq/Potassium Chloride 15 meq/ Potassium Phosphate 15 mmol/ Magnesium Sulfate 10 meq/Calcium Gluconate 20 meq/ Multivitamins 10 ml/Chromium/ Copper/Manganese/ Seleni/Zn 0.5 ml/ Total Parenteral Nutrition/Amino Acids/Dextrose/ Fat Emulsion Intravenous 1,200 ml @ 50 mls/hr TPN CONT IV ; Start 07/10/19 at 22:00; Stop 07/10/19 at 14:17; Status DC Sodium Chloride 90 meq/Potassium Chloride 15 meq/ Potassium Phosphate 10 mmol/ Magnesium Sulfate 10 meq/Calcium Gluconate 20 meq/ Multivitamins 10 ml/Chromium/ Copper/Manganese/ Seleni/Zn 0.5 ml/ Total Parenteral Nutrition/Amino Acids/Dextrose/ Fat Emulsion Intravenous 1,200 ml @ 50 mls/hr TPN CONT IV Last administered on 07/10/19at 23:29; Start 07/10/19 at 22:00; Stop 07/11/19 at 21:59; Status DC Sodium Chloride 1,000 ml @ 1,000 mls/hr Q1H PRN IV hypotension; Start 07/11/19 at 07:28; Stop 07/11/19 at 13:27; Status DC Albumin Human 200 ml @ 200 mls/hr 1X ONCE IV Last administered on 07/11/19at 08:51; Start 07/11/19 at 07:30; Stop 07/11/19 at 08:29; Status DC Diphenhydramine HCl (Benadryl) 25 mg 1X PRN PRN IV ITCHING; Start 07/11/19 at 07:30; Stop 07/12/19 at 07:29; Status DC Diphenhydramine HCl (Benadryl) 25 mg 1X PRN PRN IV ITCHING; Start 07/11/19 at 07:30; Stop 07/12/19 at 07:29; Status DC Sodium Chloride 1,000 ml @ 400 mls/hr Q2H30M PRN IV PATENCY; Start 07/11/19 at 07:28; Stop 07/11/19 at 19:27; Status DC Info (PHARMACY MONITORING -- do not chart) 1 each PRN DAILY PRN MC SEE COMMENTS; Start 07/11/19 at 07:30; Stop 07/22/19 at 13:01; Status DC Metronidazole 100 ml @ 100 mls/hr Q6HRS IV Last administered on 07/27/19at 06:26; Start 07/11/19 at 08:30; Stop 07/27/19 at 09:58; Status DC Micafungin Sodium 100 mg/Dextrose 100 ml @ 100 mls/hr Q24H IV Last administered on 08/18/19at 08:18; Start 07/11/19 at 09:00; Stop 08/18/19 at 20:5 8; Status DC Propofol 0 ml @ As Directed STK-MED ONCE IV ; Start 07/11/19 at 07:53; Stop 07/11/19 at 07:53; Status DC Etomidate (Amidate) 20 mg STK-MED ONCE IV ; Start 07/11/19 at 07:53; Stop 07/11/19 at 07:54; Status DC Midazolam HCl (Versed) 5 mg STK-MED ONCE .ROUTE ; Start 07/11/19 at 07:57; Stop 07/11/19 at 07:57; Status DC Fentanyl Citrate 30 ml @ 0 mls/hr CONT PRN IV SEE PROTOCOL Last administered on 08/05/19at 06:12; Start 07/11/19 at 08:15; Stop 08/05/19 at 09:19; Status DC Artificial Tears (Artificial Tears) 1 drop PRN Q1HR PRN OU DRY EYE, 1st choice; Start 07/11/19 at 08:15; Stop 08/17/19 at 05:31; Status DC Midazolam HCl 50 mg/Sodium Chloride 50 ml @ 0 mls/hr CONT PRN IV SEE PROTOCOL Last administered on 07/14/19at 22:39; Start 07/11/19 at 08:15; Stop 07/16/19 at 15:59; Status DC Etomidate (Amidate) 8 mg 1X ONCE IV Last administered on 07/11/19at 08:33; Start 07/11/19 at 08:30; Stop 07/11/19 at 08:31; Status DC Succinylcholine Chloride (Anectine) 120 mg 1X ONCE IV Last administered on at 08:34; Start 07/11/19 at 08:30; Stop 07/11/19 at 08:31; Status DC Midazolam HCl (Versed) 5 mg 1X ONCE IV ; Start 07/11/19 at 08:30; Stop 07/11/19 at 08:31; Status DC Potassium Chloride 15 meq/ Bicarbonate Dialysis Soln w/ out KCl 5,007.5 ml @ 1,000 mls/ hr Q5H1M IV Last administered on 07/12/19at 11:11; Start 07/11/19 at 12:00; Stop 07/12/19 at 11:15; Status DC Potassium Chloride 15 meq/ Bicarbonate Dialysis Soln w/ out KCl 5,007.5 ml @ 1,000 mls/ hr Q5H1M IV Last administered on 07/12/19at 11:12; Start 07/11/19 at 12:00; Stop 07/12/19 at 11:17; Status DC Potassium Chloride 15 meq/ Bicarbonate Dialysis Soln w/ out KCl 5,007.5 ml @ 1,000 mls/ hr Q5H1M IV Last administered on 07/12/19at 11:11; Start 07/11/19 at 12:00; Stop 07/12/19 at 11:19; Status DC Sodium Chloride 90 meq/Potassium Chloride 15 meq/ Potassium Phosphate 10 mmol/ Magnesium Sulfate 10 meq/Calcium Gluconate 20 meq/ Multivitamins 10 ml/Chromium/ Copper/Manganese/ Seleni/Zn 0.5 ml/ Total Parenteral Nutrition/Amino Acids/Dextrose/ Fat Emulsion Intravenous 1,400 ml @ 58.333 mls/ hr TPN CONT IV Last administered on 07/11/19at 21:42; Start 07/11/19 at 22:00; Stop 07/12/19 at 21:59; Status DC Heparin Sodium (Porcine) (Heparin Sodium) 5,000 unit Q8HRS SQ Last administered on 07/16/19at 05:55; Start 07/11/19 at 15:00; Stop 07/16/19 at 13:28; Status DC Meropenem 500 mg/ Sodium Chloride 50 ml @ 100 mls/hr Q6HRS IV Last administered on 07/13/19at 06:00; Start 07/12/19 at 09:00; Stop 07/13/19 at 07:29; Status DC Potassium Phosphate 20 mmol/ Sodium Chloride 106.6667 ml @ 51.667 m... 1X ONCE IV Last administered on 07/12/19at 11:22; Start 07/12/19 at 10:15; Stop 07/12/19 at 12:18; Status DC Acetaminophen (Tylenol Supp) 650 mg PRN Q6HRS PRN LA MILD PAIN / TEMP > 100.3'F Last administered on 11/21/19at 04:05; Start 07/12/19 at 10:30 Potassium Chloride/Water 100 ml @ 100 mls/hr Q1H IV Last administered on 07/12/19at 12:12; Start 07/12/19 at 11:00; Stop 07/12/19 at 12:59; Status DC Potassium Chloride 20 meq/ Bicarbonate Dialysis Soln w/ out KCl 5,010 ml @ 1,000 mls/hr Q5H1M IV Last administered on 07/13/19at 08:48; Start 07/12/19 at 12:00; Stop 07/13/19 at 13:03; Status DC Potassium Chloride 20 meq/ Bicarbonate Dialysis Soln w/ out KCl 5,010 ml @ 1,000 mls/hr Q5H1M IV Last administered on 07/17/19at 14:52; Start 07/12/19 at 11:30; Stop 07/17/19 at 19:59; Status DC Potassium Chloride 20 meq/ Bicarbonate Dialysis Soln w/ out KCl 5,010 ml @ 1,000 mls/hr Q5H1M IV Last administered on 07/17/19at 14:53; Start 07/12/19 at 11:30; Stop 07/17/19 at 19:59; Status DC Sodium Chloride 90 meq/Potassium Chloride 15 meq/ Potassium Phosphate 15 mmol/ Magnesium Sulfate 10 meq/Calcium Gluconate 15 meq/ Multivitamins 10 ml/Chromium/ Copper/Manganese/ Seleni/Zn 0.5 ml/ Total Parenteral Nutrition/Amino Acids/Dex trose/ Fat Emulsion Intravenous 1,400 ml @ 58.333 mls/ hr TPN CONT IV Last administered on 07/12/19at 22:17; Start 07/12/19 at 22:00; Stop 07/13/19 at 21:59; Status DC Cefepime HCl (Maxipime) 2 gm Q12HR IVP Last administered on 07/26/19at 20:56; Start 07/13/19 at 09:00; Stop 07/27/19 at 09:58; Status DC Daptomycin 500 mg/ Sodium Chloride 50 ml @ 100 mls/hr Q48H IV Last administ ered on 07/29/19at 09:57; Start 07/13/19 at 08:30; Stop 07/29/19 at 10:07; Status DC Lidocaine HCl (Buffered Lidocaine 1%) 3 ml 1X ONCE INJ Last administered on 07/13/19at 10:27; Start 07/13/19 at 10:30; Stop 07/13/19 at 10:31; Status DC Potassium Phosphate 20 mmol/ Sodium Chloride 106.6667 ml @ 51.667 m... 1X ONCE IV Last administered on 07/13/19at 12:51; Start 07/13/19 at 13:00; Stop 07/13/19 at 15:03; Status DC Sodium Chloride 90 meq/Potassium Chloride 15 meq/ Potassium Phosphate 18 mmol/ Magnesium Sulfate 8 meq/Calcium Gluconate 15 meq/ Multivitamins 10 ml/Chromium/ Copper/Manganese/ Seleni/Zn 0.5 ml/ Total Parenteral Nutrition/Amino Acids/Dextrose/ Fat Emulsion Intravenous 1,400 ml @ 58.333 mls/ hr TPN CONT IV Last administered on 07/13/19at 22:16; Start 07/13/19 at 22:00; Stop 07/14/19 at 21:59; Status DC Potassium Chloride 20 meq/ Bicarbonate Dialysis Soln w/ out KCl 5,010 ml @ 1,000 mls/hr Q5H1M IV Last administered on 07/17/19at 14:54; Start 07/13/19 at 16:00; Stop 07/17/19 at 19:59; Status DC Multi-Ingred Cream/Lotion/Oil/ Oint (Artificial Tears Eye Ointment) 1 ramu PRN Q1HR PRN OU DRY EYE, 2nd choice Last administered on 08/01/19at 08:19; Start 07/13/19 at 17:30; Stop 09/21/19 at 14:39; Status DC Sodium Chloride 90 meq/Potassium Chloride 15 meq/ Potassium Phosphate 18 mmol/ Magnesium Sulfate 8 meq/Calcium Gluconate 15 meq/ Multivitamins 10 ml/Chromium/ Copper/Manganese/ Seleni/Zn 0.5 ml/ Total Parenteral Nutrition/Amino Acids/Dextrose/ Fat Emulsion Intravenous 1,400 ml @ 58.333 mls/ hr TPN CONT IV Last administered on 07/14/19at 22:00; Start 07/14/19 at 22:00; Stop 07/15/19 at 21:59; Status DC Albumin Human 500 ml @ 125 mls/hr 1X ONCE IV ; Start 07/14/19 at 14:15; Stop 07/14/19 at 18:14; Status DC Sodium Chloride 90 meq/Potassium Chloride 15 meq/ Potassium Phosphate 18 mmol/ Magnesium Sulfate 8 meq/Calcium Gluconate 15 meq/ Multivitamins 10 ml/Chromium/ Copper/Manganese/ Seleni/Zn 0.5 ml/ Insulin Human Regular 10 unit/ Total Parenteral Nutrition/Amino Acids/Dextrose/ Fat Emulsion Intravenous 1,400 ml @ 58.333 mls/ hr TPN CONT IV Last administered on 07/15/19at 21:43; Start 07/15/19 at 22:00; Stop 07/16/19 at 21:59; Status DC Lidocaine HCl (Buffered Lidocaine 1%) 3 ml STK-MED ONCE .ROUTE ; Start 07/13/19 at 10:00; Stop 07/15/19 at 13:57; Status DC Midazolam HCl 100 mg/Sodium Chloride 100 ml @ 7 mls/hr CONT PRN IV SEE PROTOCOL Last administered on 07/27/19at 15:35; Start 07/16/19 at 16:00; Stop 09/21/19 at 14:38; Status DC Sodium Chloride 90 meq/Potassium Chloride 15 meq/ Potassium Phosphate 18 mmol/ Magnesium Sulfate 8 meq/Calcium Gluconate 15 meq/ Multivitamins 10 ml/Chromium/ Copper/Manganese/ Seleni/Zn 0.5 ml/ Insulin Human Regular 15 unit/ Total Parenteral Nutrition/Amino Acids/Dextrose/ Fat Emulsion Intravenous 1,400 ml @ 58.333 mls/ hr TPN CONT IV Last administered on 07/16/19at 20:34; Start 07/16/19 at 22:00; Stop 07/17/19 at 21:59; Status DC Info (Icu Electrolyte Protocol) 1 ea CONT PRN PRN MC PER PROTOCOL; Start 07/17/19 at 13:15 Sodium Chloride 90 meq/Potassium Chloride 15 meq/ Potassium Phosphate 18 mmol/ Magnesium Sulfate 8 meq/Calcium Gluconate 15 meq/ Multivitamins 10 ml/Chromium/ Copper/Manganese/ Seleni/Zn 0.5 ml/ Insulin Human Regular 15 unit/ Total Parenteral Nutrition/Amino Acids/Dextrose/ Fat Emulsion Intravenous 1,400 ml @ 58.333 mls/ hr TPN CONT IV Last administered on 07/17/19at 22:05; Start 07/17/19 at 22:00; Stop 07/18/19 at 21:59; Status DC Potassium Chloride 15 meq/ Bicarbonate Dialysis Soln w/ out KCl 5,007.5 ml @ 1,000 mls/ hr Q5H1M IV Last administered on 07/20/19at 18:14; Start 07/17/19 at 20:00; Stop 07/21/19 at 13:08; Status DC Potassium Chloride 15 meq/ Bicarbonate Dialysis Soln w/ out KCl 5,007.5 ml @ 1,000 mls/ hr Q5H1M IV Last administered on 07/20/19at 18:14; Start 07/17/19 at 20:00; Stop 07/21/19 at 13:08; Status DC Potassium Chloride 15 meq/ Bicarbonate Dialysis Soln w/ out KCl 5,007.5 ml @ 1,000 mls/ hr Q5H1M IV Last administered on 07/20/19at 18:14; Start 07/17/19 at 20:00; Stop 07/21/19 at 13:08; Status DC Iohexol (Omnipaque 240 Mg/ml) 30 ml 1X ONCE PO Last administered on 07/18/19at 11:30; Start 07/18/19 at 11:30; Stop 07/18/19 at 11:33; Status DC Info (CONTRAST GIVEN -- Rx MONITORING) 1 each PRN DAILY PRN MC SEE COMMENTS; Start 07/18/19 at 11:45; Stop 07/20/19 at 11:44; Status DC Sodium Chloride 90 meq/Potassium Chloride 15 meq/ Potassium Phosphate 18 mmol/ Magnesium Sulfate 8 meq/Calcium Gluconate 15 meq/ Multivitamins 10 ml/Chromium/ Copper/Manganese/ Seleni/Zn 0.5 ml/ Insulin Human Regular 15 unit/ Total Parenteral Nutrition/Amino Acids/Dextrose/ Fat Emulsion Intravenous 1,400 ml @ 58.333 mls/ hr TPN CONT IV Last administered on 07/18/19at 21:47; Start 07/18/19 at 22:00; Stop 07/19/19 at 21:59; Status DC Sodium Chloride 90 meq/Potassium Chloride 15 meq/ Potassium Phosphate 18 mmol/ Magnesium Sulfate 8 meq/Calcium Gluconate 15 meq/ Multivitamins 10 ml/Chromium/ Copper/Manganese/ Seleni/Zn 0.5 ml/ Insulin Human Regular 20 unit/ Total Parenteral Nutrition/Amino Acids/Dextrose/ Fat Emulsion Intravenous 1,400 ml @ 58.333 mls/ hr TPN CONT IV Last administered on 07/19/19at 21:36; Start 07/19/19 at 22:00; Stop 07/20/19 at 21:59; Status DC Alteplase, Recombinant (Cathflo For Central Catheter Clearance) 1 mg 1X ONCE INT CAT Last administered on 07/19/19at 20:03; Start 07/19/19 at 19:30; Stop at 19:46; Status DC Alteplase, Recombinant (Cathflo For Central Catheter Clearance) 1 mg 1X ONCE INT CAT Last administered on 07/19/19at 22:05; Start 07/19/19 at 22:00; Stop 07/19/19 at 22:01; Status DC Sodium Chloride 90 meq/Potassium Chloride 15 meq/ Potassium Phosphate 18 mmol/ Magnesium Sulfate 8 meq/Calcium Gluconate 15 meq/ Multivitamins 10 ml/Chromium/ Copper/Manganese/ Seleni/Zn 0.5 ml/ Insulin Human Regular 20 unit/ Total Parenteral Nutrition/Amino Acids/Dextrose/ Fat Emulsion Intravenous 1,400 ml @ 58.333 mls/ hr TPN CONT IV Last administered on 07/20/19at 21:30; Start 07/20/19 at 22:00; Stop 07/21/19 at 21:59; Status DC Dexmedetomidine HCl 400 mcg/ Sodium Chloride 100 ml @ 0 mls/hr CONT PRN IV ANXIETY / AGITATION Last administered on 09/17/19at 12:57; Start 07/21/19 at 08:15; Stop 09/17/19 at 18:31; Status DC Sodium Chloride 500 ml @ 500 mls/hr 1X PRN PRN IV ELEVATED BP, SEE COMMENTS; Start 07/21/19 at 08:15 Atropine Sulfate (ATROPINE 0.5mg SYRINGE) 0.5 mg PRN Q5MIN PRN IV SEE COMMENTS; Start 07/21/19 at 08:15 Furosemide (Lasix) 20 mg 1X ONCE IVP Last administered on 07/21/19at 08:19; Start 07/21/19 at 08:15; Stop 07/21/19 at 08:16; Status DC Lidocaine HCl (Buffered Lidocaine 1%) 3 ml STK-MED ONCE .ROUTE ; Start 07/21/19 at 08:39; Stop 07/21/19 at 08:39; Status DC Lidocaine HCl (Buffered Lidocaine 1%) 6 ml 1X ONCE INJ Last administered on 07/21/19at 09:05; Start 07/21/19 at 09:00; Stop 07/21/19 at 09:06; Status DC Sodium Chloride 90 meq/Potassium Chloride 15 meq/ Potassium Phosphate 18 mmol/ Magnesium Sulfate 8 meq/Calcium Gluconate 15 meq/ Multivitamins 10 ml/Chromium/ Copper/Manganese/ Seleni/Zn 0.5 ml/ Insulin Human Regular 20 unit/ Total Parenteral Nutrition/Amino Acids/Dextrose/ Fat Emulsion Intravenous 1,400 ml @ 58.333 mls/ hr TPN CONT IV Last administered on 07/21/19at 22:45; Start 07/21/19 at 22:00; Stop 07/22/19 at 21:59; Status DC Sodium Chloride 1,000 ml @ 1,000 mls/hr Q1H PRN IV hypotension; Start 07/22/19 at 07:30; Stop 07/22/19 at 13:29; Status DC Albumin Human 200 ml @ 200 mls/hr 1X PRN PRN IV Hypotension Last administered on 07/22/19at 09:36; Start 07/22/19 at 07:30; Stop 07/22/19 at 13:29; Status DC Sodium Chloride (Normal Saline Flush) 10 ml 1X PRN PRN IV AP catheter pack; Start 07/22/19 at 07:30; Stop 07/22/19 at 21:29; Status DC Sodium Chloride (Normal Saline Flush) 10 ml 1X PRN PRN IV [employer] catheter pack; Start 07/22/19 at 07:30; Stop 07/23/19 at 07:29; Status DC Sodium Chloride 1,000 ml @ 400 mls/hr Q2H30M PRN IV PATENCY; Start 07/22/19 at 07:30; Stop 07/22/19 at 19:29; Status DC Info (PHARMACY MONITORING -- do not chart) 1 each PRN DAILY PRN MC SEE COMMENTS; Start 07/22/19 at 07:30; Stop 07/22/19 at 13:02; Status DC Info (PHARMACY MONITORING -- do not chart) 1 each PRN DAILY PRN MC SEE COMMENTS; Start 07/22/19 at 07:30; Stop 07/24/19 at 12:45; Status DC Sodium Chloride 90 meq/Potassium Chloride 15 meq/ Potassium Phosphate 10 mmol/ Magnesium Sulfate 8 meq/Calcium Gluconate 15 meq/ Multivitamins 10 ml/Chromium/ Copper/Manganese/ Seleni/Zn 0.5 ml/ Insulin Human Regular 25 unit/ Total Parenteral Nutrition/Amino Acids/Dextrose/ Fat Emulsion Intravenous 1,400 ml @ 58.333 mls/ hr TPN CONT IV Last administered on 07/22/19at 22:19; Start 07/22/19 at 22:00; Stop 07/23/19 at 21:59; Status DC Heparin Sodium (Porcine) (Heparin Sodium) 5,000 unit Q12HR SQ Last administered on 08/14/19at 08:59; Start 07/22/19 at 21:00; Stop 08/14/19 at 10:05; Status DC Ondansetron HCl (Zofran) 4 mg PRN Q6HRS PRN IV NAUSEA/VOMITING; Start 07/25/19 at 07:00; Stop 07/26/19 at 06:59; Status DC Fentanyl Citrate (Fentanyl 2ml Vial) 25 mcg PRN Q5MIN PRN IV MILD PAIN 1-3; Start 07/25/19 at 07:00; Stop 07/26/19 at 06:59; Status DC Fentanyl Citrate (Fentanyl 2ml Vial) 50 mcg PRN Q5MIN PRN IV MODERATE TO SEVERE PAIN; Start 07/25/19 at 07:00; Stop 07/26/19 at 06:59; Status DC Ringer's Solution 1,000 ml @ 30 mls/hr Q24H IV ; Start 07/25/19 at 07:00; Stop 07/25/19 at 18:59; Status DC Lidocaine HCl (Xylocaine-Mpf 1% 2ml Vial) 2 ml PRN 1X PRN ID PRIOR TO IV START; Start 07/25/19 at 07:00; Stop 07/26/19 at 06:59; Status DC Prochlorperazine Edisylate (Compazine) 5 mg PACU PRN PRN IV NAUSEA, MRX1; Start 07/25/19 at 07:00; Stop 07/26/19 at 06:59; Status DC Sodium Chloride 1,000 ml @ 1,000 mls/hr Q1H PRN IV hypotension; Start 07/23/19 at 09:10; Stop 07/23/19 at 15:09; Status DC Albumin Human 200 ml @ 200 mls/hr 1X PRN PRN IV Hypotension Last administered on 07/23/19at 10:10; Start 07/23/19 at 09:15; Stop 07/23/19 at 15:14; Status DC Sodium Chloride 1,000 ml @ 400 mls/hr Q2H30M PRN IV PATENCY; Start 07/23/19 at 09:10; Stop 07/23/19 at 21:09; Status DC Info (PHARMACY MONITORING -- do not chart) 1 each PRN DAILY PRN MC SEE COMMENTS; Start 07/23/19 at 09:15; Stop 07/24/19 at 12:45; Status DC Info (PHARMACY MONITORING -- do not chart) 1 each PRN DAILY PRN MC SEE COMMENTS; Start 07/23/19 at 09:15; Stop 07/24/19 at 12:45; Status DC Sodium Chloride 90 meq/Potassium Chloride 15 meq/ Potassium Phosphate 10 mmol/ Magnesium Sulfate 8 meq/Calcium Gluconate 15 meq/ Multivitamins 10 ml/Chromium/ Copper/Manganese/ Seleni/Zn 0.5 ml/ Insulin Human Regular 25 unit/ Total Parenteral Nutrition/Amino Acids/Dextrose/ Fat Emulsion Intravenous 1,400 ml @ 58.333 mls/ hr TPN CONT IV Last administered on 07/23/19at 22:10; Start 07/23/19 at 22:00; Stop 07/24/19 at 21:59; Status DC Magnesium Sulfate 50 ml @ 25 mls/hr PRN DAILY PRN IV for Mag < 1.7 on am labs Last administered on 10/06/19at 10:57; Start 07/24/19 at 09:15 Sodium Chloride 90 meq/Potassium Chloride 15 meq/ Potassium Phosphate 10 mmol/ Magnesium Sulfate 8 meq/Calcium Gluconate 15 meq/ Multivitamins 10 ml/Chromium/ Copper/Manganese/ Seleni/Zn 0.5 ml/ Insulin Human Regular 25 unit/ Total Parenteral Nutrition/Amino Acids/Dextrose/ Fat Emulsion Intravenous 1,400 ml @ 58.333 mls/ hr TPN CONT IV Last administered on 07/24/19at 21:20; Start 07/24/19 at 22:00; Stop 07/25/19 at 21:59; Status DC Sodium Chloride 1,000 ml @ 1,000 mls/hr Q1H PRN IV hypotension; Start 07/24/19 at 12:23; Stop 07/24/19 at 18:22; Status DC Albumin Human 200 ml @ 200 mls/hr 1X ONCE IV Last administered on 07/24/19at 13:34; Start 07/24/19 at 12:30; Stop 07/24/19 at 13:29; Status DC Diphenhydramine HCl (Benadryl) 25 mg 1X PRN PRN IV ITCHING; Start 07/24/19 at 12:30; Stop 07/25/19 at 12:29; Status DC Diphenhydramine HCl (Benadryl) 25 mg 1X PRN PRN IV ITCHING; Start 07/24/19 at 12:30; Stop 07/25/19 at 12:29; Status DC Info (PHARMACY MONITORING -- do not chart) 1 each PRN DAILY PRN MC SEE COMMENTS; Start 07/24/19 at 12:30; Status Cancel Bupivacaine HCl/ Epinephrine Bitart (Sensorcain-Epi 0.5%-1:[id number] Mpf) 30 ml STK-MED ONCE .ROUTE Last administered on 07/25/19at 11:44; Start 07/25/19 at 11:00; Stop 07/25/19 at 11:01; Status DC Cellulose (Surgicel Fibrillar 1x2) 1 each STK-MED ONCE .ROUTE ; Start 07/25/19 at 11:00; Stop 07/25/19 at 11:01; Status DC Sodium Chloride 90 meq/Potassium Chloride 15 meq/ Potassium Phosphate 10 mmol/ Magnesium Sulfate 12 meq/Calcium Gluconate 15 meq/ Multivitamins 10 ml/Chromium/ Copper/Manganese/ Seleni/Zn 0.5 ml/ Insulin Human Regular 25 unit/ Total Parenteral Nutrition/Amino Acids/Dextrose/ Fat Emulsion Intravenous 1,400 ml @ 58.333 mls/ hr TPN CONT IV Last administered on 07/25/19at 22:24; Start 07/25/19 at 22:00; Stop 07/26/19 at 21:59; Status DC Propofol 20 ml @ As Directed STK-MED ONCE IV ; Start 07/25/19 at 11:07; Stop 07/25/19 at 11:07; Status DC Cellulose (Surgicel Hemostat 4x8) 1 each STK-MED ONCE .ROUTE Last administered on 07/25/19at 11:44; Start 07/25/19 at 11:55; Stop 07/25/19 at 11:56; Status DC Sevoflurane (Ultane) 60 ml STK-MED ONCE IH ; Start 07/25/19 at 12:46; Stop 07/25/19 at 12:46; Status DC Sodium Chloride 1,000 ml @ 1,000 mls/hr Q1H PRN IV hypotension; Start 07/25/19 at 13:51; Stop 07/25/19 at 19:50; Status DC Albumin Human 200 ml @ 200 mls/hr 1X PRN PRN IV Hypotension Last administered on 07/25/19at 14:51; Start 07/25/19 at 14:00; Stop 07/25/19 at 19:59; Status DC Diphenhydramine HCl (Benadryl) 25 mg 1X PRN PRN IV ITCHING; Start 07/25/19 at 14:00; Stop 07/26/19 at 13:59; Status DC Diphenhydramine HCl (Benadryl) 25 mg 1X PRN PRN IV ITCHING; Start 07/25/19 at 14:00; Stop 07/26/19 at 13:59; Status DC Sodium Chloride 1,000 ml @ 400 mls/hr Q2H30M PRN IV PATENCY; Start 07/25/19 at 13:51; Stop 07/26/19 at 01:50; Status DC Info (PHARMACY MONITORING -- do not chart) 1 each PRN DAILY PRN MC SEE COMMENTS; Start 07/25/19 at 14:00; Stop 07/28/19 at 08:16; Status DC Heparin Sodium (Porcine) (Hep Lock Adult) 500 unit STK-MED ONCE IVP ; Start 07/26/19 at 09:29; Stop 07/26/19 at 09:30; Status DC Sodium Chloride 1,000 ml @ 1,000 mls/hr Q1H PRN IV hypotension; Start 07/26/19 at 10:43; Stop 07/26/19 at 16:42; Status DC Sodium Chloride 1,000 ml @ 400 mls/hr Q2H30M PRN IV PATENCY; Start 07/26/19 at 10:43; Stop 07/26/19 at 22:42; Status DC Info (PHARMACY MONITORING -- do not chart) 1 each PRN DAILY PRN MC SEE COMMENTS; Start 07/26/19 at 10:45; Status UNV Info (PHARMACY MONITORING -- do not chart) 1 each PRN DAILY PRN MC SEE COMMENTS; Start 07/26/19 at 10:45; Status UNV Sodium Chloride 90 meq/Potassium Chloride 15 meq/ Magnesium Sulfate 12 meq/Calcium Gluconate 15 meq/ Multivitamins 10 ml/Chromium/ Copper/Manganese/ Seleni/Zn 0.5 ml/ Insulin Human Regular 25 unit/ Total Parenteral Nutrition/Amino Acids/Dextrose/ Fat Emulsion Intravenous 1,400 ml @ 58.333 mls/ hr TPN CONT IV Last administered on 07/26/19at 22:13; Start 07/26/19 at 22:00; Stop 07/27/19 at 21:59; Status DC Sodium Chloride 1,000 ml @ 1,000 mls/hr Q1H PRN IV hypotension; Start 07/27/19 at 07:50; Stop 07/27/19 at 13:49; Status DC Albumin Human 200 ml @ 200 mls/hr 1X ONCE IV ; Start 07/27/19 at 08:00; Stop 07/27/19 at 08:53; Status DC Diphenhydramine HCl (Benadryl) 25 mg 1X PRN PRN IV ITCHING; Start 07/27/19 at 08:00; Stop 07/28/19 at 07:59; Status DC Diphenhydramine HCl (Benadryl) 25 mg 1X PRN PRN IV ITCHING; Start 07/27/19 at 08:00; Stop 07/28/19 at 07:59; Status DC Info (PHARMACY MONITORING -- do not chart) 1 each PRN DAILY PRN MC SEE COMMENTS; Start 07/27/19 at 08:00; Stop 07/28/19 at 08:16; Status DC Albumin Human 50 ml @ 50 mls/hr 1X ONCE IV ; Start 07/27/19 at 08:53; Stop 07/27/19 at 08:56; Status DC Albumin Human 200 ml @ 50 mls/hr PRN 1X PRN IV HYPOTENSION Last administered on 08/02/19at 11:54; Start 07/27/19 at 09:00; Stop 09/08/19 at 11:14; Status DC Meropenem 500 mg/ Sodium Chloride 50 ml @ 100 mls/hr Q12H IV Last administered on 08/16/19at 10:45; Start 07/27/19 at 10:00; Stop 08/16/19 at 12:37; Status DC Sodium Chloride 90 meq/Magnesium Sulfate 12 meq/ Calcium Gluconate 15 meq/ Multivitamins 10 ml/Chromium/ Copper/Manganese/ Seleni/Zn 0.5 ml/ Insulin Human Regular 25 unit/ Total Parenteral Nutrition/Amino Acids/Dextrose/ Fat Emulsion Intravenous 1,400 ml @ 58.333 mls/ hr TPN CONT IV Last administered on 07/27/19at 21:41; Start 07/27/19 at 22:00; Stop 07/28/19 at 21:59; Status DC Sodium Chloride 1,000 ml @ 1,000 mls/hr Q1H PRN IV hypotension; Start 07/28/19 at 07:58; Stop 07/28/19 at 13:57; Status DC Albumin Human 200 ml @ 200 mls/hr 1X PRN PRN IV Hypotension Last administered on 07/28/19at 09:30; Start 07/28/19 at 08:00; Stop 07/28/19 at 13:59; Status DC Sodium Chloride 1,000 ml @ 400 mls/hr Q2H30M PRN IV PATENCY; Start 07/28/19 at 07:58; Stop 07/28/19 at 19:57; Status DC Info (PHARMACY MONITORING -- do not chart) 1 each PRN DAILY PRN MC SEE COMMENTS; Start 07/28/19 at 08:00; Status Cancel Info (PHARMACY MONITORING -- do not chart) 1 each PRN DAILY PRN MC SEE COMMENTS; Start 07/28/19 at 08:15; Status UNV Sodium Chloride 90 meq/Potassium Phosphate 5 mmol/ Magnesium Sulfate 12 meq/Calcium Gluconate 15 meq/ Multivitamins 10 ml/Chromium/ Copper/Manganese/ Seleni/Zn 0.5 ml/ Insulin Human Regular 30 unit/ Total Parenteral Nutrition/Amino Acids/Dextrose/ Fat Emulsion Intravenous 1,400 ml @ 58.333 mls/ hr TPN CONT IV Last administered on 07/28/19at 22:08; Start 07/28/19 at 22:00; Stop 07/29/19 at 21:59; Status DC Linezolid/Dextrose 300 ml @ 300 mls/hr Q12HR IV Last administered on 08/08/19at 20:40; Start 07/29/19 at 11:00; Stop 08/09/19 at 08:10; Status DC Sodium Chloride 90 meq/Potassium Phosphate 15 mmol/ Magnesium Sulfate 12 meq/Calcium Gluconate 15 meq/ Multivitamins 10 ml/Chromium/ Copper/Manganese/ Seleni/Zn 0.5 ml/ Insulin Human Regular 30 unit/ Total Parenteral Nutrition/Ami no Acids/Dextrose/ Fat Emulsion Intravenous 1,400 ml @ 58.333 mls/ hr TPN CONT IV Last administered on 07/29/19at 21:49; Start 07/29/19 at 22:00; Stop 07/30/19 at 21:59; Status DC Sodium Chloride 90 meq/Potassium Phosphate 15 mmol/ Magnesium Sulfate 12 meq/Calcium Gluconate 15 meq/ Multivitamins 10 ml/Chromium/ Copper/Manganese/ Seleni/Zn 0.5 ml/ Insulin Human Regular 40 unit/ Total Parenteral Nutrition/Amino Acids/Dextrose/ Fat Emulsion Intravenous 1,400 ml @ 58.333 mls/ hr TPN CONT IV Last administered on 07/30/19at 21:21; Start 07/30/19 at 22:00; Stop 07/31/19 at 21:59; Status DC Sodium Chloride 1,000 ml @ 1,000 mls/hr Q1H PRN IV hypotension; Start 07/30/19 at 13:26; Stop 07/30/19 at 19:25; Status DC Albumin Human 200 ml @ 200 mls/hr 1X PRN PRN IV Hypotension Last administered on 07/30/19at 15:00; Start 07/30/19 at 13:30; Stop 07/30/19 at 19:29; Status DC Sodium Chloride (Normal Saline Flush) 10 ml 1X PRN PRN IV AP catheter pack; Start 07/30/19 at 13:30; Stop 07/31/19 at 13:29; Status DC Sodium Chloride (Normal Saline Flush) 10 ml 1X PRN PRN IV [employer]ER catheter pack; Start 07/30/19 at 13:30; Stop 07/31/19 at 13:29; Status DC Sodium Chloride 1,000 ml @ 400 mls/hr Q2H30M PRN IV PATENCY; Start 07/30/19 at 13:26; Stop 07/31/19 at 01:25; Status DC Info (PHARMACY MONITORING -- do not chart) 1 each PRN DAILY PRN MC SEE COMMENTS; Start 07/30/19 at 13:30; Stop 07/30/19 at 13:33; Status DC Info (PHARMACY MONITORING -- do not chart) 1 each PRN DAILY PRN MC SEE COMMENTS; Start 07/30/19 at 13:30; Stop 07/30/19 at 13:34; Status DC Sodium Chloride 90 meq/Potassium Phosphate 19 mmol/ Magnesium Sulfate 12 meq/Calcium Gluconate 15 meq/ Multivitamins 10 ml/Chromium/ Copper/Manganese/ Seleni/Zn 0.5 ml/ Insulin Human Regular 40 unit/ Total Parenteral Nutrition/Alfaro o Acids/Dextrose/ Fat Emulsion Intravenous 1,400 ml @ 58.333 mls/ hr TPN CONT IV Last administered on 07/31/19at 21:54; Start 07/31/19 at 22:00; Stop 08/01/19 at 21:59; Status DC Sodium Chloride 1,000 ml @ 1,000 mls/hr Q1H PRN IV hypotension; Start 08/01/19 at 09:35; Stop 08/01/19 at 15:34; Status DC Albumin Human 200 ml @ 200 mls/hr 1X PRN PRN IV Hypotension; Start 08/01/19 at 09:45; Stop 08/01/19 at 15:44; Status DC Diphenhydramine HCl (Benadryl) 25 mg 1X PRN PRN IV ITCHING; Start 08/01/19 at 09:45; Stop 08/02/19 at 09:44; Status DC Diphenhydramine HCl (Benadryl) 25 mg 1X PRN PRN IV ITCHING; Start 08/01/19 at 09:45; Stop 08/02/19 at 09:44; Status DC Sodium Chloride 1,000 ml @ 400 mls/hr Q2H30M PRN IV PATENCY; Start 08/01/19 at 09:35; Stop 08/01/19 at 21:34; Status DC Info (PHARMACY MONITORING -- do not chart) 1 each PRN DAILY PRN MC SEE COMMENTS; Start 08/01/19 at 09:45; Status Cancel Sodium Chloride 100 meq/Potassium Phosphate 19 mmol/ Magnesium Sulfate 12 meq/Calcium Gluconate 15 meq/ Multivitamins 10 ml/Chromium/ Copper/Manganese/ Seleni/Zn 0.5 ml/ Insulin Human Regular 40 unit/ Potassium Chloride 20 meq/ Total Parenteral Nutrition/Amino Acids/Dextrose/ Fat Emulsion Intravenous 1,400 ml @ 58.333 mls/ hr TPN CONT IV Last administered on 08/01/19at 22:02; Start 08/01/19 at 22:00; Stop 08/02/19 at 21:59; Status DC Furosemide (Lasix) 40 mg 1X ONCE IVP Last administered on 08/01/19at 14:39; Start 08/01/19 at 14:30; Stop 08/01/19 at 14:31; Status DC Metronidazole 100 ml @ 100 mls/hr Q8HRS IV Last administered on 08/09/19at 06:04; Start 08/02/19 at 10:00; Stop 08/09/19 at 08:10; Status DC Sodium Chloride 1,000 ml @ 1,000 mls/hr Q1H PRN IV hypotension; Start 08/02/19 at 08:00; Stop 08/02/19 at 13:59; Status DC Albumin Human 200 ml @ 200 mls/hr 1X PRN PRN IV Hypotension; Start 08/02/19 at 08:00; Stop 08/02/19 at 13:59; Status DC Sodium Chloride 1,000 ml @ 400 mls/hr Q2H30M PRN IV PATENCY; Start 08/02/19 at 08:00; Stop 08/02/19 at 19:59; Status DC Info (PHARMACY MONITORING -- do not chart) 1 each PRN DAILY PRN MC SEE COMMENTS; Start 08/02/19 at 11:30; Status UNV Info (PHARMACY MONITORING -- do not chart) 1 each PRN DAILY PRN MC SEE COMMENTS; Start 08/02/19 at 11:30; Stop 08/04/19 at 12:13; Status DC Sodium Chloride 100 meq/Potassium Phosphate 19 mmol/ Magnesium Sulfate 12 meq/Calcium Gluconate 15 meq/ Multivitamins 10 ml/Chromium/ Copper/Manganese/ Seleni/Zn 0.5 ml/ Insulin Human Regular 40 unit/ Potassium Chloride 20 meq/ Total Parenteral Nutrition/Amino Acids/Dextrose/ Fat Emulsion Intravenous 1,400 ml @ 58.333 mls/ hr TPN CONT IV Last administered on 08/02/19at 21:52; Start 08/02/19 at 22:00; Stop 08/03/19 at 21:59; Status DC Sodium Chloride (Normal Saline Flush) 10 ml QSHIFT PRN IV AFTER MEDS AND BLOOD DRAWS; Start 08/02/19 at 15:00; Stop 08/30/19 at 11:27; Status DC Sodium Chloride (Normal Saline Flush) 10 ml PRN Q5MIN PRN IV AFTER MEDS AND BLOOD DRAWS; Start 08/02/19 at 15:00; Stop 11/19/19 at 10:12; Status DC Sodium Chloride (Normal Saline Flush) 20 ml PRN Q5MIN PRN IV AFTER MEDS AND BLOOD DRAWS; Start 08/02/19 at 15:00 Sodium Chloride 100 meq/Potassium Phosphate 19 mmol/ Magnesium Sulfate 12 meq/Calcium Gluconate 15 meq/ Multivitamins 10 ml/Chromium/ Copper/Manganese/ Seleni/Zn 0.5 ml/ Insulin Human Regular 40 unit/ Potassium Chloride 20 meq/ Total Parenteral Nutrition/Amino Acids/Dextrose/ Fat Emulsion Intravenous 1,400 ml @ 58.333 mls/ hr TPN CONT IV Last administered on 08/03/19at 21:20; Start 08/03/19 at 22:00; Stop 08/04/19 at 21:59; Status DC Lidocaine HCl (Buffered Lidocaine 1%) 3 ml STK-MED ONCE .ROUTE ; Start 08/03/19 at 13:16; Stop 08/03/19 at 13:16; Status DC Lidocaine HCl (Buffered Lidocaine 1%) 6 ml 1X ONCE INJ Last administered on 08/03/19at 13:45; Start 08/03/19 at 13:30; Stop 08/03/19 at 13:31; Status DC Albumin Human 100 ml @ 100 mls/hr 1X ONCE IV Last administered on 08/03/19at 15:41; Start 08/03/19 at 15:00; Stop 08/03/19 at 15:59; Status DC Albumin Human 50 ml @ 50 mls/hr 1X ONCE IV Last administered on 08/03/19at 15:00; Start 08/03/19 at 15:00; Stop 08/03/19 at 15:59; Status DC Info (PHARMACY MONITORING -- do not chart) 1 each PRN DAILY PRN MC SEE COMMENTS; Start 08/04/19 at 11:30; Status Cancel Info (PHARMACY MONITORING -- do not chart) 1 each PRN DAILY PRN MC SEE COMMENTS; Start 08/04/19 at 11:30; Status UNV Sodium Chloride 100 meq/Potassium Phosphate 10 mmol/ Magnesium Sulfate 12 meq/Calcium Gluconate 15 meq/ Multivitamins 10 ml/Chromium/ Copper/Manganese/ Seleni/Zn 0.5 ml/ Insulin Human Regular 35 unit/ Potassium Chloride 20 meq/ Total Parenteral Nutrition/Amino Acids/Dextrose/ Fat Emulsion Intravenous 1,400 ml @ 58.333 mls/ hr TPN CONT IV Last administered on 08/04/19at 22:10; Start 08/04/19 at 22:00; Stop 08/05/19 at 21:59; Status DC Sodium Chloride 100 meq/Potassium Phosphate 5 mmol/ Magnesium Sulfate 12 meq/Calcium Gluconate 15 meq/ Multivitamins 10 ml/Chromium/ Copper/Manganese/ Seleni/Zn 0.5 ml/ Insulin Human Regular 35 unit/ Potassium Chloride 20 meq/ Total Parenteral Nutrition/Amino Acids/Dextrose/ Fat Emulsion Intravenous 1,400 ml @ 58.333 mls/ hr TPN CONT IV Last administered on 08/05/19at 22:59; Start 08/05/19 at 22:00; Stop 08/06/19 at 21:59; Status DC Sodium Chloride 1,000 ml @ 1,000 mls/hr Q1H PRN IV hypotension; Start 08/06/19 at 08:27; Stop 08/06/19 at 14:26; Status DC Albumin Human 200 ml @ 200 mls/hr 1X PRN PRN IV Hypotension Last administered on 08/06/19at 09:18; Start 08/06/19 at 08:30; Stop 08/06/19 at 14:29; Status DC Sodium Chloride 1,000 ml @ 400 mls/hr Q2H30M PRN IV PATENCY; Start 08/06/19 at 08:27; Stop 08/06/19 at 20:26; Status DC Info (PHARMACY MONITORING -- do not chart) 1 each PRN DAILY PRN MC SEE COMMENTS; Start 08/06/19 at 08:30; Status Cancel Info (PHARMACY MONITORING -- do not chart) 1 each PRN DAILY PRN MC SEE COMMENTS; Start 08/06/19 at 08:30; Stop 08/14/19 at 13:10; Status DC Sodium Chloride 100 meq/Potassium Chloride 40 meq/ Magnesium Sulfate 15 meq/Calcium Gluconate 15 meq/ Multivitamins 10 ml/Chromium/ Copper/Manganese/ Seleni/Zn 0.5 ml/ Insulin Human Regular 35 unit/ Total Parenteral Nutrit ion/Amino Acids/Dextrose/ Fat Emulsion Intravenous 1,400 ml @ 58.333 mls/ hr TPN CONT IV Last administered on 08/06/19at 22:00; Start 08/06/19 at 22:00; Stop 08/07/19 at 21:59; Status DC Potassium Chloride/Water 100 ml @ 100 mls/hr 1X ONCE IV Last administered on 08/06/19at 17:28; Start 08/06/19 at 14:45; Stop 08/06/19 at 15:44; Status DC Sodium Chloride 100 meq/Potassium Chloride 40 meq/ Magnesium Sulfate 15 meq/Calcium Gluconate 15 meq/ Multivitamins 10 ml/Chromium/ Copper/Manganese/ Seleni/Zn 0.5 ml/ Insulin Human Regular 35 unit/ Total Parenteral Nutrition/Amino Acids/Dextrose/ Fat Emulsion Intravenous 1,400 ml @ 58.333 mls/ hr TPN CONT IV Last administered on 08/07/19at 22:46; Start 08/07/19 at 22:00; Stop 08/08/19 at 21:59; Status DC Sodium Chloride 100 meq/Potassium Chloride 40 meq/ Magnesium Sulfate 20 meq/Calcium Gluconate 15 meq/ Multivitamins 10 ml/Chromium/ Copper/Manganese/ Seleni/Zn 0.5 ml/ Insulin Human Regular 35 unit/ Total Parenteral Nutrition/Amino Acids/Dextrose/ Fat Emulsion Intravenous 1,400 ml @ 58.333 mls/ hr TPN CONT IV Last administered on 08/08/19at 22:31; Start 08/08/19 at 22:00; Stop 08/09/19 at 21:59; Status DC Fentanyl Citrate (Fentanyl 2ml Vial) 50 mcg PRN Q2HR PRN IVP PAIN Last administered on 08/15/19at 13:32; Start 08/08/19 at 21:00; Stop 08/16/19 at 12:53; Status DC Fentanyl Citrate (Fentanyl 2ml Vial) 25 mcg PRN Q2HR PRN IVP PAIN; Start 08/08/19 at 21:00; Stop 08/16/19 at 12:54; Status DC Enoxaparin Sodium (Lovenox 100mg Syringe) 100 mg Q12HR SQ ; Start 08/09/19 at 21:00; Status UNV Amino Acids/ Glycerin/ Electrolytes 1,000 ml @ 75 mls/hr [id number] IV ; Start 08/08/19 at 21:15; Status UNV Sodium Chloride 1,000 ml @ 1,000 mls/hr Q1H PRN IV hypotension; Start 08/09/19 at 07:56; Stop 08/09/19 at 13:55; Status DC Albumin Human 200 ml @ 200 mls/hr 1X PRN PRN IV Hypotension Last administered on 08/09/19at 08:40; Start 08/09/19 at 08:00; Stop 08/09/19 at 13:59; Status DC Sodium Chloride 1,000 ml @ 400 mls/hr Q2H30M PRN IV PATENCY; Start 08/09/19 at 07:56; Stop 08/09/19 at 19:55; Status DC Info (PHARMACY MONITORING -- do not chart) 1 each PRN DAILY PRN MC SEE COMMENTS; Start 08/09/19 at 08:00; Status UNV Info (PHARMACY MONITORING -- do not chart) 1 each PRN DAILY PRN MC SEE COMMENTS; Start 08/09/19 at 08:00; Status UNV Daptomycin 430 mg/ Sodium Chloride 50 ml @ 100 mls/hr Q24H IV Last administered on 08/09/19at 12:35; Start 08/09/19 at 09:00; Stop 08/09/19 at 12:49; Status DC Sodium Chloride 100 meq/Potassium Chloride 40 meq/ Magnesium Sulfate 20 meq/Calcium Gluconate 15 meq/ Multivitamins 10 ml/Chromium/ Copper/Manganese/ Seleni/Zn 0.5 ml/ Insulin Human Regular 35 unit/ Total Parenteral Nutrition/Amino Acids/Dextrose/ Fat Emulsion Intravenous 1,400 ml @ 58.333 mls/ hr TPN CONT IV Last administered on 08/09/19at 21:26; Start 08/09/19 at 22:00; Stop 08/10/19 at 21:59; Status DC Daptomycin 430 mg/ Sodium Chloride 50 ml @ 100 mls/hr Q48H IV ; Start 08/11/19 at 09:00; Stop 08/10/19 at 11:55; Status DC Sodium Chloride 100 meq/Potassium Chloride 40 meq/ Magnesium Sulfate 20 meq/Calcium Gluconate 15 meq/ Multivitamins 10 ml/Chromium/ Copper/Manganese/ Seleni/Zn 0.5 ml/ Insulin Human Regular 35 unit/ Total Parenteral Nutrition/Amino Acids/Dextrose/ Fat Emulsion Intravenous 1,400 ml @ 58.333 mls/ hr TPN CONT IV Last administered on 08/10/19at 22:27; Start 08/10/19 at 22:00; Stop 08/11/19 at 21:59; Status DC Daptomycin 430 mg/ Sodium Chloride 50 ml @ 100 mls/hr Q24H IV Last administered on 08/12/19at 15:07; Start 08/10/19 at 13:00; Stop 08/13/19 at 13:15; Status DC Sodium Chloride 100 meq/Potassium Chloride 40 meq/ Magnesium Sulfate 20 meq/Calcium Gluconate 10 meq/ Multivitamins 10 ml/Chromium/ Copper/Manganese/ Seleni/Zn 0.5 ml/ Insulin Human Regular 35 unit/ Total Parenteral Nutrition/Amino Acids/Dextrose/ Fat Emulsion Intravenous 1,400 ml @ 58.333 mls/ hr TPN CONT IV Last administered on 08/12/19at 00:06; Start 08/11/19 at 22:00; Stop 08/12/19 at 21:59; Status DC Alteplase, Recombinant (Cathflo For Central Catheter Clearance) 1 mg 1X ONCE INT CAT Last administered on 08/12/19at 11:44; Start 08/12/19 at 10:45; Stop 08/12/19 at 10:46; Status DC Ondansetron HCl (Zofran) 4 mg PRN Q6HRS PRN IV NAUSEA/VOMITING; Start 08/15/19 at 07:00; Stop 08/16/19 at 06:59; Status DC Fentanyl Citrate (Fentanyl 2ml Vial) 25 mcg PRN Q5MIN PRN IV MILD PAIN 1-3; Start 08/15/19 at 07:00; Stop 08/16/19 at 06:59; Status DC Fentanyl Citrate (Fentanyl 2ml Vial) 50 mcg PRN Q5MIN PRN IV MODERATE TO SEVERE PAIN Last administered on 08/15/19at 10:17; Start 08/15/19 at 07:00; Stop 08/16/19 at 06:59; Status DC Ringer's Solution 1,000 ml @ 30 mls/hr Q24H IV ; Start 08/15/19 at 07:00; Stop 08/15/19 at 18:59; Status DC Lidocaine HCl (Xylocaine-Mpf 1% 2ml Vial) 2 ml PRN 1X PRN ID PRIOR TO IV START; Start 08/15/19 at 07:00; Stop 08/16/19 at 06:59; Status DC Prochlorperazine Edisylate (Compazine) 5 mg PACU PRN PRN IV NAUSEA, MRX1; Start 08/15/19 at 07:00; Stop 08/16/19 at 06:59; Status DC Sodium Acetate 50 meq/Potassium Acetate 55 meq/ Magnesium Sulfate 20 meq/Calcium Gluconate 10 meq/ Multivitamins 10 ml/Chromium/ Copper/Manganese/ Seleni/Zn 0.5 ml/ Insulin Human Regular 35 unit/ Total Parenteral Nutrition/Amino Aci ds/Dextrose/ Fat Emulsion Intravenous 1,400 ml @ 58.333 mls/ hr TPN CONT IV ; Start 08/12/19 at 22:00; Stop 08/12/19 at 14:15; Status DC Sodium Acetate 50 meq/Potassium Acetate 55 meq/ Magnesium Sulfate 20 meq/Calcium Gluconate 10 meq/ Multivitamins 10 ml/Chromium/ Copper/Manganese/ Seleni/Zn 0.5 ml/ Insulin Human Regular 35 unit/ Total Parenteral Nutrition/Amino Acids/Dextrose/ Fat Emulsion Intravenous 1,800 ml @ 75 mls/hr TPN CONT IV Last administered on 08/12/19at 22:38; Start 08/12/19 at 22:00; Stop 08/13/19 at 21:59; Status DC Sodium Chloride 1,000 ml @ 1,000 mls/hr Q1H PRN IV hypotension; Start 08/12/19 at 15:31; Stop 08/12/19 at 21:30; Status DC Diphenhydramine HCl (Benadryl) 25 mg 1X PRN PRN IV ITCHING; Start 08/12/19 at 15:45; Stop 08/13/19 at 15:44; Status DC Diphenhydramine HCl (Benadryl) 25 mg 1X PRN PRN IV ITCHING; Start 08/12/19 at 15:45; Stop 08/13/19 at 15:44; Status DC Sodium Chloride 1,000 ml @ 400 mls/hr Q2H30M PRN IV PATENCY; Start 08/12/19 at 15:31; Stop 08/13/19 at 03:30; Status DC Info (PHARMACY MONITORING -- do not chart) 1 each PRN DAILY PRN MC SEE COMMENTS; Start 08/12/19 at 15:45; Stop 09/13/19 at 14:14; Status DC Sodium Acetate 50 meq/Potassium Acetate 55 meq/ Magnesium Sulfate 20 meq/Calcium Gluconate 10 meq/ Multivitamins 10 ml/Chromium/ Copper/Manganese/ Seleni/Zn 0.5 ml/ Insulin Human Regular 35 unit/ Total Parenteral Nutrition/Amino Acid s/Dextrose/ Fat Emulsion Intravenous 1,800 ml @ 75 mls/hr TPN CONT IV Last administered on 08/13/19at 22:03; Start 08/13/19 at 22:00; Stop 08/14/19 at 21:59; Status DC Daptomycin 430 mg/ Sodium Chloride 50 ml @ 100 mls/hr Q24H IV Last administered on 08/18/19at 13:00; Start 08/13/19 at 13:00; Stop 08/18/19 at 20:58; Status DC Heparin Sodium (Porcine) 1000 unit/Sodium Chloride 1,001 ml @ 1,001 mls/hr 1X ONCE IRR ; Start 08/15/19 at 06:00; Stop 08/15/19 at 06:59; Status DC Potassium Acetate 55 meq/Magnesium Sulfate 20 meq/ Calcium Gluconate 10 meq/ Multivitamins 10 ml/Chromium/ Copper/Manganese/ Seleni/Zn 0.5 ml/ Insulin Human Regular 35 unit/ Total Parenteral Nutrition/Amino Acids/Dextrose/ Fat Emulsion Intravenous 1,920 ml @ 80 mls/hr TPN CONT IV Last administered on 08/14/19at 22:10; Start 08/14/19 at 22:00; Stop 08/15/19 at 21:59; Status DC Dexamethasone Sodium Phosphate (Decadron) 4 mg STK-MED ONCE .ROUTE ; Start 08/15/19 at 10:56; Stop 08/15/19 at 10:57; Status DC Ondansetron HCl (Zofran) 4 mg STK-MED ONCE .ROUTE ; Start 08/15/19 at 10:56; Stop 08/15/19 at 10:57; Status DC Rocuronium [place] (Zemuron) 50 mg STK-MED ONCE .ROUTE ; Start 08/15/19 at 10:56; Stop 08/15/19 at 10:57; Status DC Fentanyl Citrate (Fentanyl 2ml Vial) 100 mcg STK-MED ONCE .ROUTE ; Start 08/15/19 at 10:56; Stop 08/15/19 at 10:57; Status DC Bupivacaine HCl/ Epinephrine Bitart (Sensorcain-Epi 0.5%-1:[id number] Mpf) 30 ml STK-MED ONCE .ROUTE Last administered on 08/15/19at 12:01; Start 08/15/19 at 10:58; Stop 08/15/19 at 10:58; Status DC Cellulose (Surgicel Hemostat 2x14) 1 each STK-MED ONCE .ROUTE ; Start 08/15/19 at 10:58; Stop 08/15/19 at 10:59; Status DC Iohexol (Omnipaque 300 Mg/ml) 50 ml STK-MED ONCE .ROUTE ; Start 08/15/19 at 10:58; Stop 08/15/19 at 10:59; Status DC Cellulose (Surgicel Hemostat 4x8) 1 each STK-MED ONCE .ROUTE ; Start 08/15/19 at 10:58; Stop 08/15/19 at 10:59; Status DC Bisacodyl (Dulcolax Supp) 10 mg STK-MED ONCE .ROUTE ; Start 08/15/19 at 10:59; Stop 08/15/19 at 10:59; Status DC Heparin Sodium (Porcine) 1000 unit/Sodium Chloride 1,001 ml @ 1,001 mls/hr 1X ONCE IRR ; Start 08/15/19 at 12:00; Stop 08/15/19 at 12:59; Status DC Propofol 20 ml @ As Directed STK-MED ONCE IV ; Start 08/15/19 at 11:05; Stop 08/15/19 at 11:05; Status DC Sevoflurane (Ultane) 90 ml STK-MED ONCE IH ; Start 08/15/19 at 11:05; Stop 08/15/19 at 11:05; Status DC Sevoflurane (Ultane) 60 ml STK-MED ONCE IH ; Start 08/15/19 at 12:26; Stop 08/15/19 at 12:27; Status DC Propofol 20 ml @ As Directed STK-MED ONCE IV ; Start 08/15/19 at 12:26; Stop 08/15/19 at 12:27; Status DC Phenylephrine HCl (PHENYLEPHRINE in 0.9% NACL PF) 1 mg STK-MED ONCE IV ; Start 08/15/19 at 12:34; Stop 08/15/19 at 12:34; Status DC Heparin Sodium (Porcine) (Heparin Sodium) 5,000 unit Q12HR SQ Last administered on 08/24/19at 20:57; Start 08/15/19 at 21:00; Stop 08/25/19 at 09:59; Status DC Sodium Chloride (Normal Saline Flush) 3 ml QSHIFT PRN IV AFTER MEDS AND BLOOD DRAWS; Start 08/15/19 at 13:45; Status Cancel Naloxone HCl (Narcan) 0.4 mg PRN Q2MIN PRN IV SEE INSTRUCTIONS Last administered on 09/24/19at 15:15; Start 08/15/19 at 13:45; Stop 10/19/19 at 16:00; Status DC Sodium Chloride 1,000 ml @ 25 mls/hr Q24H IV Last administered on 09/13/19at 13:37; Start 08/15/19 at 13:37; Stop 09/16/19 at 13:09; Status DC Naloxone HCl (Narcan) 0.4 mg PRN Q2MIN PRN IV SEE INSTRUCTIONS; Start 08/15/19 at 14:30; Status UNV Sodium Chloride 1,000 ml @ 25 mls/hr Q24H IV ; Start 08/15/19 at 14:30; Status UNV Hydromorphone HCl 30 ml @ 0 mls/hr CONT PRN PRN IV PER PROTOCOL Last adm inistered on 08/20/19at 16:08; Start 08/15/19 at 14:30; Stop 08/22/19 at 08:55; Status DC Potassium Acetate 55 meq/Magnesium Sulfate 20 meq/ Calcium Gluconate 10 meq/ Multivitamins 10 ml/Chromium/ Copper/Manganese/ Seleni/Zn 0.5 ml/ Insulin Human Regular 35 unit/ Total Parenteral Nutrition/Amino Acids/Dextrose/ Fat Emulsion Intravenous 1,920 ml @ 80 mls/hr TPN CONT IV Last administered on 08/15/19at 22:01; Start 08/15/19 at 22:00; Stop 08/16/19 at 21:59; Status DC Bumetanide (Bumex) 2 mg [id number] IV Last administered on 08/19/19at 13:50; Start 08/16/19 at 14:00; Stop 08/20/19 at 14:10; Status DC Meropenem 1 gm/ Sodium Chloride 100 ml @ 200 mls/hr Q8HRS IV Last administered on 09/09/19at 05:53; Start 08/16/19 at 14:00; Stop 09/09/19 at 09:31; Status DC Potassium Acetate 55 meq/Magnesium Sulfate 20 meq/ Calcium Gluconate 10 meq/ Multivitamins 10 ml/Chromium/ Copper/Manganese/ Seleni/Zn 0.5 ml/ Insulin Human Regular 35 unit/ Total Parenteral Nutrition/Amino Acids/Dextrose/ Fat Emulsion Intravenous 1,920 ml @ 80 mls/hr TPN CONT IV Last administered on 08/16/19at 22:02; Start 08/16/19 at 22:00; Stop 08/17/19 at 21:59; Status DC Hydromorphone HCl (Dilaudid Standard SECURITY FLEX UTILITY OFFICER) 12 mg STK-MED ONCE IV ; Start 08/15/19 at 14:35; Stop 08/16/19 at 13:53; Status DC Artificial Tears (Artificial Tears) 1 drop PRN Q15MIN PRN OU DRY EYE Last administered on 10/11/19at 21:17; Start 08/17/19 at 05:30 Hydromorphone HCl (Dilaudid Standard SECURITY FLEX UTILITY OFFICER) 12 mg STK-MED ONCE IV ; Start 08/16/19 at 12:05; Stop 08/17/19 at 09:15; Status DC Potassium Acetate 65 meq/Magnesium Sulfate 20 meq/ Calcium Gluconate 10 meq/ Multivitamins 10 ml/Chromium/ Copper/Manganese/ Seleni/Zn 0.5 ml/ Insulin Human Regular 30 unit/ Total Parenteral Nutrition/Amino Acids/Dextrose/ Fat Emulsion Intravenous 1,920 ml @ 80 mls/hr TPN CONT IV Last administered on 08/17/19at 22:22; Start 08/17/19 at 22:00; Stop 08/18/19 at 21:59; Status DC Cyclobenzaprine HCl (Flexeril) 10 mg PRN Q6HRS PRN PO MUSCLE SPASMS Last administered on 10/28/19at 19:12; Start 08/18/19 at 10:45 Potassium Acetate 55 meq/Magnesium Sulfate 20 meq/ Calcium Gluconate 10 meq/ Multivitamins 10 ml/Chromium/ Copper/Manganese/ Seleni/Zn 0.5 ml/ Insulin Human Regular 30 unit/ Total Parenteral Nutrition/Amino Acids/Dextrose/ Fat Emulsion Intravenous 1,920 ml @ 80 mls/hr TPN CONT IV Last administered on 08/19/19at 01:00; Start 08/18/19 at 22:00; Stop 08/19/19 at 21:59; Status DC Magnesium Sulfate 50 ml @ 25 mls/hr 1X ONCE IV Last administered on 08/18/19at 17:18; Start 08/18/19 at 12:45; Stop 08/18/19 at 14:44; Status DC Potassium Chloride/Water 100 ml @ 100 mls/hr 1X ONCE IV Last administered on 08/19/19at 11:27; Start 08/19/19 at 12:00; Stop 08/19/19 at 12:59; Status DC Hydromorphone HCl (Dilaudid Standard SECURITY FLEX UTILITY OFFICER) 12 mg STK-MED ONCE IV ; Start 08/17/19 at 10:50; Stop 08/19/19 at 11:02; Status DC Hydromorphone HCl (Dilaudid Standard SECURITY FLEX UTILITY OFFICER) 12 mg STK-MED ONCE IV ; Start 08/18/19 at 13:47; Stop 08/19/19 at 11:03; Status DC Potassium Acetate 30 meq/Magnesium Sulfate 20 meq/ Calcium Gluconate 10 meq/ Multivitamins 10 ml/Chromium/ Copper/Manganese/ Seleni/Zn 0.5 ml/ Insulin Human Regular 30 unit/ Potassium Chloride 30 meq/ Total Parenteral Nutrition/Amino Acids/Dextrose/ Fat Emulsion Intravenous 1,920 ml @ 80 mls/hr TPN CONT IV Last administered on 08/19/19at 22:34; Start 08/19/19 at 22:00; Stop 08/20/19 at 21:59; Status DC Potassium Chloride/Water 100 ml @ 100 mls/hr Q1H IV Last administered on at 13:05; Start 08/20/19 at 07:00; Stop 08/20/19 at 10:59; Status DC Magnesium Sulfate 50 ml @ 25 mls/hr 1X ONCE IV Last administered on 08/20/19at 10:34; Start 08/20/19 at 10:30; Stop 08/20/19 at 12:29; Status DC Potassium Chloride 75 meq/ Magnesium Sulfate 20 meq/Calcium Gluconate 10 meq/ Multivitamins 10 ml/Chromium/ Copper/Manganese/ Seleni/Zn 0.5 ml/ Insulin Human Regular 30 unit/ Total Parenteral Nutrition/Amino Acids/Dextrose/ Fat Emulsion Intravenous 1,920 ml @ 80 mls/hr TPN CONT IV Last administered on 08/20/19at 21:51; Start 08/20/19 at 22:00; Stop 08/21/19 at 22:00; Status DC Potassium Chloride 75 meq/ Magnesium Sulfate 20 meq/Calcium Gluconate 10 meq/ Multivitamins 10 ml/Chromium/ Copper/Manganese/ Seleni/Zn 0.5 ml/ Insulin Human Regular 25 unit/ Total Parenteral Nutrition/Amino Acids/Dextrose/ Fat Emulsion Intravenous 1,920 ml @ 80 mls/hr TPN CONT IV Last administered on 08/21/19at 22:04; Start 08/21/19 at 22:00; Stop 08/22/19 at 21:59; Status DC Hydromorphone HCl (Dilaudid) 0.4 mg PRN Q4HRS PRN IVP PAIN Last administered on 08/22/19at 10:57; Start 08/22/19 at 09:00; Stop 08/22/19 at 18:59; Status DC Micafungin Sodium 100 mg/Dextrose 100 ml @ 100 mls/hr Q24H IV Last administered on 09/13/19at 12:17; Start 08/22/19 at 11:00; Stop 09/14/19 at 09:59; Status DC Daptomycin 485 mg/ Sodium Chloride 50 ml @ 100 mls/hr Q24H IV Last administered on 08/29/19at 13:10; Start 08/22/19 at 11:00; Stop 08/30/19 at 07:44; Status DC Potassium Chloride 75 meq/ Magnesium Sulfate 15 meq/Calcium Gluconate 8 meq/ Multivitamins 10 ml/Chromium/ Copper/Manganese/ Seleni/Zn 0.5 ml/ Insulin Human Regular 25 unit/ Total Parenteral Nutrition/Amino Acids/Dextrose/ Fat Emulsion Intravenous 1,920 ml @ 80 mls/hr TPN CONT IV Last administered on 08/22/19at 23:08; Start 08/22/19 at 22:00; Stop 08/23/19 at 21:59; Status DC Haloperidol Lactate (Haldol Inj) 3 mg 1X ONCE IVP Last administered on 08/22/19at 14:37; Start 08/22/19 at 14:30; Stop 08/22/19 at 14:31; Status DC Hydromorphone HCl (Dilaudid) 1 mg PRN Q4HRS PRN IVP PAIN Last administered on 09/05/19at 06:25; Start 08/22/19 at 19:00; Stop 09/05/19 at 17:10; Status DC Potassium Chloride 75 meq/ Magnesium Sulfate 15 meq/Calcium Gluconate 8 meq/ Multivitamins 10 ml/Chromium/ Copper/Manganese/ Seleni/Zn 0.5 ml/ Insulin Human Regular 20 unit/ Total Parenteral Nutrition/Amino Acids/Dextrose/ Fat Emulsion Intravenous 1,920 ml @ 80 mls/hr TPN CONT IV Last administered on 08/23/19at 22:10; Start 08/23/19 at 22:00; Stop 08/24/19 at 21:59; Status DC Lidocaine HCl (Buffered Lidocaine 1%) 3 ml STK-MED ONCE .ROUTE ; Start 08/24/19 at 11:31; Stop 08/24/19 at 11:31; Status DC Lidocaine HCl (Buffered Lidocaine 1%) 3 ml STK-MED ONCE .ROUTE ; Start 08/24/19 at 12:28; Stop 08/24/19 at 12:29; Status DC Lidocaine HCl (Buffered Lidocaine 1%) 6 ml 1X ONCE INJ Last administered on 08/24/19at 12:53; Start 08/24/19 at 12:45; Stop 08/24/19 at 12:46; Status DC Potassium Chloride 75 meq/ Magnesium Sulfate 15 meq/Calcium Gluconate 8 meq/ Multivitamins 10 ml/Chromium/ Copper/Manganese/ Seleni/Zn 0.5 ml/ Insulin Human Regular 20 unit/ Total Parenteral Nutrition/Amino Acids/Dextrose/ Fat Emulsion Intravenous 1,920 ml @ 80 mls/hr TPN CONT IV Last administered on 08/24/19at 22:00; Start 08/24/19 at 22:00; Stop 08/25/19 at 21:59; Status DC Potassium Chloride 75 meq/ Magnesium Sulfate 15 meq/Calcium Gluconate 8 meq/ Multivitamins 10 ml/Chromium/ Copper/Manganese/ Seleni/Zn 0.5 ml/ Insulin Human Regular 15 unit/ Total Parenteral Nutrition/Amino Acids/Dextrose/ Fat Emulsion Intravenous 1,920 ml @ 80 mls/hr TPN CONT IV Last administered on 08/25/19at 22:28; Start 08/25/19 at 22:00; Stop 08/26/19 at 21:59; Status DC Vecuronium [place] (Norcuron Bolus) 6 mg PRN Q6HRS PRN IV VENT ASYNCHRONY; Start 08/25/19 at 19:15; Stop 08/25/19 at 19:35; Status DC Bumetanide (Bumex) 2 mg 1X ONCE IV Last administered on 08/25/19at 22:09; Start 08/25/19 at 19:45; Stop 08/25/19 at 19:46; Status DC Lidocaine HCl (Buffered Lidocaine 1%) 3 ml STK-MED ONCE .ROUTE ; Start 08/26/19 at 07:59; Stop 08/26/19 at 07:59; Status DC Midazolam HCl (Versed) 5 mg STK-MED ONCE .ROUTE ; Start 08/26/19 at 08:36; Stop 08/26/19 at 08:36; Status DC Fentanyl Citrate (Fentanyl 5ml Vial) 250 mcg STK-MED ONCE .ROUTE ; Start 08/26/19 at 08:36; Stop 08/26/19 at 08:37; Status DC Lidocaine HCl (Buffered Lidocaine 1%) 3 ml 1X ONCE IJ Last administered on 08/26/19at 09:30; Start 08/26/19 at 09:15; Stop 08/26/19 at 09:16; Status DC Midazolam HCl (Versed) 5 mg 1X ONCE IV Last administered on 08/26/19at 09:30; Start 08/26/19 at 09:15; Stop 08/26/19 at 09:16; Status DC Fentanyl Citrate (Fentanyl 5ml Vial) 250 mcg 1X ONCE IV Last administered on 08/26/19at 09:30; Start 08/26/19 at 09:15; Stop 08/26/19 at 09:16; Status DC Bumetanide (Bumex) 2 mg DAILY IV Last administered on 09/05/19at 08:07; Start 08/26/19 at 10:00; Stop 09/05/19 at 17:15; Status DC Potassium Chloride 75 meq/ Magnesium Sulfate 15 meq/ Multivitamins 10 ml/Chromium/ Copper/Manganese/ Seleni/Zn 0.5 ml/ Insulin Human Regular 15 unit/ Total Parenteral Nutrition/Amino Acids/Dextrose/ Fat Emulsion Intravenous 1,920 ml @ 80 mls/hr TPN CONT IV Last administered on 08/26/19at 21:59; Start 08/26/19 at 22:00; Stop 08/27/19 at 21:59; Status DC Metoclopramide HCl (Reglan Vial) 10 mg PRN Q3HRS PRN IVP NAUSEA/VOMITING-3rd choice Last administered on 09/01/19at 04:25; Start 08/27/19 at 16:45 Potassium Chloride 75 meq/ Magnesium Sulfate 15 meq/ Multivitamins 10 ml/Chromium/ Copper/Manganese/ Seleni/Zn 0.5 ml/ Insulin Human Regular 15 unit/ Total Parenteral Nutrition/Amino Acids/Dextrose/ Fat Emulsion Intravenous 1,920 ml @ 80 mls/hr TPN CONT IV Last administered on 08/27/19at 22:41; Start 08/27/19 at 22:00; Stop 08/28/19 at 21:59; Status DC Magnesium Sulfate 50 ml @ 25 mls/hr 1X ONCE IV Last administered on 08/28/19at 10:44; Start 08/28/19 at 09:00; Stop 08/28/19 at 10:59; Status DC Potassium Chloride/Water 100 ml @ 100 mls/hr 1X ONCE IV Last administered on 08/28/19at 09:37; Start 08/28/19 at 09:00; Stop 08/28/19 at 09:59; Status DC Duloxetine HCl (Cymbalta) 30 mg DAILY PO Last administered on 08/29/19at 09:48; Start 08/28/19 at 14:00; Stop 08/31/19 at 10:25; Status DC Potassium Chloride 80 meq/ Magnesium Sulfate 20 meq/ Multivitamins 10 ml/Chromium/ Copper/Manganese/ Seleni/Zn 0.5 ml/ Insulin Human Regular 15 unit/ Total Parenteral Nutrition/Amino Acids/Dextrose/ Fat Emulsion Intravenous 1,920 ml @ 80 mls/hr TPN CONT IV Last administered on 08/28/19at 21:42; Start 08/28/19 at 22:00; Stop 08/29/19 at 21:59; Status DC Potassium Chloride 80 meq/ Magnesium Sulfate 20 meq/ Multivitamins 10 ml/Chromium/ Copper/Manganese/ Seleni/Zn 0.5 ml/ Insulin Human Regular 15 unit/ Total Parenteral Nutrition/Amino Acids/Dextrose/ Fat Emulsion Intravenous 1,920 ml @ 80 mls/hr TPN CONT IV Last administered on 08/29/19at 22:20; Start 08/29/19 at 22:00; Stop 08/30/19 at 21:59; Status DC Lidocaine HCl (Buffered Lidocaine 1%) 3 ml STK-MED ONCE .ROUTE ; Start 08/30/19 at 09:54; Stop 08/30/19 at 09:55; Status DC Hydromorphone HCl (Dilaudid Standard [employer]ICER) 12 mg STK-MED ONCE IV ; Start 08/19/19 at 15:50; Stop 08/30/19 at 11:24; Status DC Potassium Chloride 80 meq/ Magnesium Sulfate 20 meq/ Multivitamins 10 ml/Chromium/ Copper/Manganese/ Seleni/Zn 0.5 ml/ Insulin Human Regular 15 unit/ Total Parenteral Nutrition/Amino Acids/Dextrose/ Fat Emulsion Intravenous 1,920 ml @ 80 mls/hr TPN CONT IV Last administered on 08/30/19at 21:40; Start 08/30/19 at 22:00; Stop 08/31/19 at 21:59; Status DC Lidocaine HCl (Buffered Lidocaine 1%) 6 ml 1X ONCE INJ Last administered on 08/30/19at 14:15; Start 08/30/19 at 14:15; Stop 08/30/19 at 14:16; Status DC Potassium Chloride 80 meq/ Magnesium Sulfate 20 meq/ Multivitamins 10 ml/Chromium/ Copper/Manganese/ Seleni/Zn 1 ml/ Insulin Human Regular 15 unit/ Total Parenteral Nutrition/Amino Acids/Dextrose/ Fat Emulsion Intravenous 1,920 ml @ 80 mls/hr TPN CONT IV Last administered on 08/31/19at 22:04; Start 08/31/19 at 22:00; Stop 09/01/19 at 21:59; Status DC Potassium Chloride/Water 100 ml @ 100 mls/hr 1X ONCE IV Last administered on 09/01/19at 11:34; Start 09/01/19 at 11:00; Stop 09/01/19 at 11:59; Status DC Potassium Chloride 90 meq/ Magnesium Sulfate 20 meq/ Multivitamins 10 ml/Chromium/ Copper/Manganese/ Seleni/Zn 1 ml/ Insulin Human Regular 15 unit/ Total Parenteral Nutrition/Amino Acids/Dextrose/ Fat Emulsion Intravenous 1,920 ml @ 80 mls/hr TPN CONT IV Last administered on 09/01/19at 22:57; Start 09/01/19 at 22:00; Stop 09/02/19 at 21:59; Status DC Potassium Chloride 90 meq/ Magnesium Sulfate 20 meq/ Multivitamins 10 ml/Chromium/ Copper/Manganese/ Seleni/Zn 1 ml/ Insulin Human Regular 15 unit/ Total Parenteral Nutrition/Amino Acids/Dextrose/ Fat Emulsion Intravenous 1,920 ml @ 80 mls/hr TPN CONT IV Last administered on 09/02/19at 22:48; Start 09/02/19 at 22:00; Stop 09/03/19 at 21:59; Status DC Potassium Chloride 90 meq/ Magnesium Sulfate 20 meq/ Multivitamins 10 ml/Chromium/ Copper/Manganese/ Seleni/Zn 1 ml/ Insulin Human Regular 15 unit/ Total Parenteral Nutrition/Amino Acids/Dextrose/ Fat Emulsion Intravenous 1,890 ml @ 78.75 mls/ hr TPN CONT IV Last administered on 09/03/19at 22:15; Start 09/03/19 at 22:00; Stop 09/04/19 at 21:59; Status DC Linezolid/Dextrose 300 ml @ 300 mls/hr Q12HR IV Last administered on 09/06/19at 21:08; Start 09/04/19 at 09:00; Stop 09/07/19 at 08:11; Status DC Daptomycin 450 mg/ Sodium Chloride 50 ml @ 100 mls/hr Q24H IV Last administered on 09/07/19at 09:25; Start 09/04/19 at 09:00; Stop 09/08/19 at 08:30; Status DC Potassium Chloride 90 meq/ Magnesium Sulfate 20 meq/ Multivitamins 10 ml/Chromium/ Copper/Manganese/ Seleni/Zn 1 ml/ Insulin Human Regular 15 unit/ Total Parenteral Nutrition/Amino Acids/Dextrose/ Fat Emulsion Intravenous 1,890 ml @ 78.75 mls/ hr TPN CONT IV Last administered on 09/04/19at 21:34; Start 09/04/19 at 22:00; Stop 09/05/19 at 21:59; Status DC Lorazepam (Ativan Inj) 2 mg STK-MED ONCE .ROUTE ; Start 09/04/19 at 14:58; Stop 09/04/19 at 14:58; Status DC Metoprolol Tartrate (Lopressor Vial) 5 mg 1X ONCE IVP Last administered on 09/04/19at 15:31; Start 09/04/19 at 15:15; Stop 09/04/19 at 15:16; Status DC Lorazepam (Ativan Inj) 2 mg 1X ONCE IVP Last administered on 09/04/19at 15:30; Start 09/04/19 at 15:15; Stop 09/04/19 at 15:16; Status DC Enoxaparin Sodium (Lovenox 40mg Syringe) 40 mg Q24H SQ Last administered on 09/23/19at 17:44; Start 09/04/19 at 17:00; Stop 09/25/19 at 06:50; Status DC Lorazepam (Ativan Inj) 1 mg PRN Q4HRS PRN IVP ANXIETY / AGITATION MILD-MOD Last administered on 09/18/19at 15:55; Start 09/04/19 at 19:15; Stop 09/20/19 at 11:45; Status DC Lorazepam (Ativan Inj) 2 mg PRN Q4HRS PRN IVP ANXIETY / AGITATION SEVERE Last administered on 09/19/19at 07:55; Start 09/04/19 at 19:15; Stop 09/20/19 at 11:45; Status DC Fentanyl Citrate (Fentanyl 2ml Vial) 50 mcg PRN Q4HRS PRN IVP SEVERE PAIN Last administered on 10/01/19at 05:15; Start 09/05/19 at 13:15; Stop 10/02/19 at 09:29; Status DC Fentanyl Citrate (Fentanyl 2ml Vial) 25 mcg PRN Q4HRS PRN IVP MODERATE PAIN Last administered on 10/01/19at 00:27; Start 09/05/19 at 13:15; Stop 10/02/19 at 09:30; Status DC Potassium Chloride 90 meq/ Magnesium Sulfate 20 meq/ Multivitamins 10 ml/Chromium/ Copper/Manganese/ Seleni/Zn 1 ml/ Insulin Human Regular 15 unit/ Total Parenteral Nutrition/Amino Acids/Dextrose/ Fat Emulsion Intravenous 1,890 ml @ 78.75 mls/ hr TPN CONT IV Last administered on 09/05/19at 22:18; Start 09/05/19 at 22:00; Stop 09/06/19 at 21:59; Status DC Furosemide (Lasix) 40 mg 1X ONCE IVP Last administered on 09/05/19at 21:51; Start 09/05/19 at 21:45; Stop 09/05/19 at 21:48; Status DC Albumin Human 100 ml @ 100 mls/hr 1X PRN PRN IV SEE COMMENTS; Start 09/06/19 at 01:30 Furosemide (Lasix) 40 mg [id number] IVP Last administered on 09/21/19at 08:04; Start 09/06/19 at 14:00; Stop 09/21/19 at 13:07; Status DC Potassium Chloride 90 meq/ Magnesium Sulfate 20 meq/ Multivitamins 10 ml/Chromium/ Copper/Manganese/ Seleni/Zn 1 ml/ Insulin Human Regular 15 unit/ Total Parenteral Nutrition/Amino Acids/Dextrose/ Fat Emulsion Intravenous 1,800 ml @ 75 mls/hr TPN CONT IV Last administered on 09/06/19at 22:31; Start 09/06/19 at 22:00; Stop 09/07/19 at 21:59; Status DC Potassium Chloride 90 meq/ Magnesium Sulfate 20 meq/ Multivitamins 10 ml/ Chromium/ Copper/Manganese/ Seleni/Zn 1 ml/ Insulin Human Regular 15 unit/ Total Parenteral Nutrition/Amino Acids/Dextrose/ Fat Emulsion Intravenous 1,800 ml @ 75 mls/hr TPN CONT IV Last administered on 09/07/19at 22:28; Start 09/07/19 at 22:00; Stop 09/08/19 at 21:59; Status DC Potassium Chloride 110 meq/ Magnesium Sulfate 20 meq/ Multivitamins 10 ml/Chromium/ Copper/Manganese/ Seleni/Zn 1 ml/ Insulin Human Regular 15 unit/ Total Parenteral Nutrition/Amino Acids/Dextrose/ Fat Emulsion Intravenous 1,800 ml @ 75 mls/hr TPN CONT IV Last administered on 09/08/19at 22:01; Start 09/08/19 at 22:00; Stop 09/09/19 at 21:59; Status DC Saliva Substitute (Biotene Moisturizing Mouth) 2 spray PRN Q15MIN PRN PO DRY MOUTH; Start 09/08/19 at 11:00 Potassium Chloride 110 meq/ Magnesium Sulfate 20 meq/ Multivitamins 10 ml/Chromium/ Copper/Manganese/ Seleni/Zn 1 ml/ Insulin Human Regular 15 unit/ Total Parenteral Nutrition/Amino Acids/Dextrose/ Fat Emulsion Intravenous 1,800 ml @ 75 mls/hr TPN CONT IV Last administered on 09/09/19at 22:21; Start 09/09/19 at 22:00; Stop 09/10/19 at 21:59; Status DC Potassium Chloride 110 meq/ Magnesium Sulfate 20 meq/ Multivitamins 10 ml/Chromium/ Copper/Manganese/ Seleni/Zn 1 ml/ Insulin Human Regular 15 unit/ Total Parenteral Nutrition/Amino Acids/Dextrose/ Fat Emulsion Intravenous 1,800 ml @ 75 mls/hr TPN CONT IV Last administered on 09/10/19at 22:04; Start 09/10/19 at 22:00; Stop 09/11/19 at 21:59; Status DC Potassium Chloride 110 meq/ Magnesium Sulfate 20 meq/ Multivitamins 10 ml /Chromium/ Copper/Manganese/ Seleni/Zn 1 ml/ Insulin Human Regular 15 unit/ Total Parenteral Nutrition/Amino Acids/Dextrose/ Fat Emulsion Intravenous 1,800 ml @ 75 mls/hr TPN CONT IV Last administered on 09/11/19at 22:48; Start 09/11/19 at 22:00; Stop 09/12/19 at 21:59; Status DC Potassium Chloride 70 meq/ Magnesium Sulfate 20 meq/ Multivitamins 10 ml/Chromium/ Copper/Manganese/ Seleni/Zn 1 ml/ Insulin Human Regular 15 unit/ Total Parenteral Nutrition/Amino Acids/Dextrose/ Fat Emulsion Intravenous 1,800 ml @ 75 mls/hr TPN CONT IV Last administered on 09/12/19at 21:39; Start 09/12/19 at 22:00; Stop 09/13/19 at 21:59; Status DC Meropenem 500 mg/ Sodium Chloride 50 ml @ 100 mls/hr Q6HRS IV Last administered on 09/14/19at 06:02; Start 09/12/19 at 18:00; Stop 09/14/19 at 09:59; Status DC Barium Sulfate (Varibar Thin Liquid Apple) 148 gm 1X ONCE PO ; Start 09/13/19 at 11:45; Stop 09/13/19 at 11:49; Status DC Potassium Chloride 70 meq/ Magnesium Sulfate 20 meq/ Multivitamins 10 ml/Chromium/ Copper/Manganese/ Seleni/Zn 1 ml/ Insulin Human Regular 15 unit/ Total Parenteral Nutrition/Amino Acids/Dextrose/ Fat Emulsion Intravenous 1,800 ml @ 75 mls/hr TPN CONT IV Last administered on 09/13/19at 22:27; Start 09/13/19 at 22:00; Stop 09/14/19 at 21:59; Status DC Piperacillin Sod/ Tazobactam Sod 3.375 gm/Sodium Chloride 50 ml @ 100 mls/hr Q6HRS IV Last administered on 09/22/19at 06:10; Start 09/14/19 at 12:00; Stop 09/22/19 at 07:26; Status DC Potassium Chloride 70 meq/ Magnesium Sulfate 20 meq/ Multivitamins 10 ml/Chromium/ Copper/Manganese/ Seleni/Zn 1 ml/ Insulin Human Regular 15 unit/ Total Parenteral Nutrition/Amino Acids/Dextrose/ Fat Emulsion Intravenous 1,800 ml @ 75 mls/hr TPN CONT IV Last administered on 09/14/19at 22:03; Start 09/14/19 at 22:00; Stop 09/15/19 at 21:59; Status DC Potassium Chloride 70 meq/ Magnesium Sulfate 20 meq/ Multivitamins 10 ml/Chromium/ Copper/Manganese/ Seleni/Zn 1 ml/ Insulin Human Regular 15 unit/ Total Parenteral Nutrition/Amino Acids/Dextrose/ Fat Emulsion Intravenous 1,800 ml @ 75 mls/hr TPN CONT IV Last administered on 09/15/19at 22:33; Start 09/15/19 at 22:00; Stop 09/16/19 at 21:59; Status DC Potassium Chloride 70 meq/ Magnesium Sulfate 20 meq/ Multivitamins 10 ml/Chromium/ Copper/Manganese/ Seleni/Zn 1 ml/ Insulin Human Regular 15 unit/ Total Parenteral Nutrition/Amino Acids/Dextrose/ Fat Emulsion Intravenous 1,800 ml @ 75 mls/hr TPN CONT IV Last administered on 09/16/19at 23:13; Start 09/16/19 at 22:00; Stop 09/17/19 at 21:59; Status DC Potassium Chloride 80 meq/ Magnesium Sulfate 20 meq/ Multivitamins 10 ml/Chromium/ Copper/Manganese/ Seleni/Zn 1 ml/ Insulin Human Regular 15 unit/ Total Parenteral Nutrition/Amino Acids/Dextrose/ Fat Emulsion Intravenous 1,800 ml @ 75 mls/hr TPN CONT IV Last administered on 09/17/19at 22:30; Start 09/17/19 at 22:00; Stop 09/18/19 at 21:59; Status DC Potassium Chloride 80 meq/ Magnesium Sulfate 20 meq/ Multivitamins 10 ml/Chromium/ Copper/Manganese/ Seleni/Zn 1 ml/ Insulin Human Regular 15 unit/ Total Parenteral Nutrition/Amino Acids/Dextrose/ Fat Emulsion Intravenous 1,800 ml @ 75 mls/hr TPN CONT IV Last administered on 09/18/19at 21:54; Start 09/18/19 at 22:00; Stop 09/19/19 at 21:59; Status DC Potassium Chloride/Water 100 ml @ 100 mls/hr 1X ONCE IV Last administered on 09/19/19at 10:15; Start 09/19/19 at 10:00; Stop 09/19/19 at 10:59; Status DC Potassium Chloride 90 meq/ Magnesium Sulfate 20 meq/ Multivitamins 10 ml/Chromium/ Copper/Manganese/ Seleni/Zn 1 ml/ Insulin Human Regular 20 unit/ Total Parenteral Nutrition/Amino Acids/Dextrose/ Fat Emulsion Intravenous 1,800 ml @ 75 mls/hr TPN CONT IV Last administered on 09/19/19at 22:28; Start 09/19/19 at 22:00; Stop 09/20/19 at 21:59; Status DC Potassium Chloride 90 meq/ Magnesium Sulfate 20 meq/ Multivitamins 10 ml/Chromium/ Copper/Manganese/ Seleni/Zn 1 ml/ Insulin Human Regular 20 unit/ Total Parenteral Nutrition/Amino Acids/Dextrose/ Fat Emulsion Intravenous 1,800 ml @ 75 mls/hr TPN CONT IV Last administered on 09/20/19at 22:08; Start 09/20/19 at 22:00; Stop 09/21/19 at 21:59; Status DC Lorazepam (Ativan Inj) 0.25 mg PRN Q4HRS PRN IVP ANXIETY / AGITATION Last administered on 11/20/19at 23:07; Start 09/21/19 at 07:30 Potassium Chloride 90 meq/ Magnesium Sulfate 20 meq/ Multivitamins 10 ml/Chromium/ Copper/Manganese/ Seleni/Zn 1 ml/ Insulin Human Regular 20 unit/ Total Parenteral Nutrition/Amino Acids/Dextrose/ Fat Emulsion Intravenous 1,800 ml @ 75 mls/hr TPN CONT IV Last administered on 09/21/19at 23:13; Start 09/21/19 at 22:00; Stop 09/22/19 at 21:59; Status DC Furosemide (Lasix) 40 mg DAILY IVP Last administered on 09/23/19at 11:14; Start 09/21/19 at 13:30; Stop 09/25/19 at 09:12; Status DC Fluoxetine HCl (PROzac) 20 mg QHS PEG Last administered on 11/20/19at 20:55; Start 09/22/19 at 21:00 Fentanyl (Duragesic 50mcg/ Hr Patch) 1 patch Q72H TD Last administered on 09/22/19at 21:22; Start 09/22/19 at 21:00; Stop 10/01/19 at 12:00; Status DC Potassium Chloride 40 meq/ Potassium Acetate 60 meq/Magnesium Sulfate 10 meq/ Multivitamins 10 ml/Chromium/ Copper/Manganese/ Seleni/Zn 1 ml/ Insulin Human Regular 20 unit/ Total Parenteral Nutrition/Amino Acids/Dextrose/ Fat Emulsion Intravenous 1,800 ml @ 75 mls/hr TPN CONT IV Last administered on 09/23/19at 00:03; Start 09/22/19 at 22:00; Stop 09/23/19 at 21:59; Status DC Potassium Acetate 80 meq/Magnesium Sulfate 5 meq/ Multivitamins 10 ml/Chromium/ Copper/Manganese/ Seleni/Zn 1 ml/ Insulin Human Regular 20 unit/ Total Janett ral Nutrition/Amino Acids/Dextrose/ Fat Emulsion Intravenous 1,920 ml @ 80 mls/hr TPN CONT IV Last administered on 09/23/19at 21:59; Start 09/23/19 at 22:00; Stop 09/24/19 at 21:59; Status DC Potassium Acetate 60 meq/Magnesium Sulfate 5 meq/ Multivitamins 10 ml/Chromium/ Copper/Manganese/ Seleni/Zn 1 ml/ Insulin Human Regular 30 unit/ Total Parenteral Nutrition/Amino Acids/Dextrose/ Fat Emulsion Intravenous 1,920 ml @ 80 mls/hr TPN CONT IV Last administered on 09/24/19at 21:54; Start 09/24/19 at 22:00; Stop 09/25/19 at 21:59; Status DC Norepinephrine Bitartrate 8 mg/ Dextrose 258 ml @ 13.332 mls/ hr CONT PRN IV PER PROTOCOL Last administered on 10/20/19at 09:09; Start 09/25/19 at 06:30 Albumin Human 500 ml @ 125 mls/hr 1X ONCE IV Last administered on 09/25/19at 08:10; Start 09/25/19 at 08:15; Stop 09/25/19 at 12:14; Status DC Potassium Acetate 40 meq/Magnesium Sulfate 5 meq/ Multivitamins 10 ml/Chromium/ Copper/Manganese/ Seleni/Zn 1 ml/ Insulin Human Regular 30 unit/ Total Parenteral Nutrition/Amino Acids/Dextrose/ Fat Emulsion Intravenous 1,920 ml @ 80 mls/hr TPN CONT IV Last administered on 09/25/19at 22:23; Start 09/25/19 at 22:00; Stop 09/26/19 at 21:59; Status DC Meropenem 1 gm/ Sodium Chloride 100 ml @ 200 mls/hr Q8HRS IV ; Start 09/25/19 at 14:00; Status Cancel Meropenem 1 gm/ Sodium Chloride 100 ml @ 200 mls/hr Q8HRS IV Last administered on 09/25/19at 11:04; Start 09/25/19 at 10:00; Stop 09/25/19 at 13:00; Status DC Meropenem 1 gm/ Sodium Chloride 100 ml @ 200 mls/hr Q12HR IV Last administered on 10/13/19at 08:27; Start 09/25/19 at 21:00; Stop 10/13/19 at 08:56; Status DC Sodium Chloride 1,000 ml @ 1,000 mls/hr 1X ONCE IV Last administered on 09/25/19at 11:06; Start 09/25/19 at 10:45; Stop 09/25/19 at 11:44; Status DC Micafungin Sodium 100 mg/Dextrose 100 ml @ 100 mls/hr Q24H IV Last administered on 10/12/19at 12:34; Start 09/25/19 at 11:00; Stop 10/13/19 at 08:56; Status DC Daptomycin 410 mg/ Sodium Chloride 50 ml @ 100 mls/hr Q24H IV Last administered on 09/27/19at 13:33; Start 09/25/19 at 14:00; Stop 09/28/19 at 08:30; Status DC Midazolam HCl (Versed) 2 mg STK-MED ONCE .ROUTE ; Start 09/25/19 at 14:47; Stop 09/25/19 at 14:48; Status DC Fentanyl Citrate (Fentanyl 2ml Vial) 100 mcg STK-MED ONCE .ROUTE ; Start 09/25/19 at 14:47; Stop 09/25/19 at 14:48; Status DC Flumazenil (Romazicon) 0.5 mg STK-MED ONCE IV ; Start 09/25/19 at 14:48; Stop 09/25/19 at 14:48; Status DC Naloxone HCl (Narcan) 0.4 mg STK-MED ONCE .ROUTE ; Start 09/25/19 at 14:48; Stop 09/25/19 at 14:48; Status DC Lidocaine HCl (Lidocaine 1% 20ml Vial) 20 ml STK-MED ONCE .ROUTE ; Start 09/25/19 at 14:48; Stop 09/25/19 at 14:48; Status DC Midazolam HCl (Versed) 2 mg 1X ONCE IV Last administered on 09/25/19at 15:28; Start 09/25/19 at 15:00; Stop 09/25/19 at 15:01; Status DC Fentanyl Citrate (Fentanyl 2ml Vial) 100 mcg 1X ONCE IV Last administered on 09/25/19at 15:28; Start 09/25/19 at 15:00; Stop 09/25/19 at 15:01; Status DC Lidocaine HCl (Lidocaine 1% 20ml Vial) 20 ml 1X ONCE INJ Last administered on 09/25/19at 15:30; Start 09/25/19 at 15:00; Stop 09/25/19 at 15:01; Status DC Sodium Chloride 1,000 ml @ 100 mls/hr Q10H IV Last administered on 10/04/19at 07:30; Start 09/25/19 at 20:00; Stop 10/04/19 at 11:26; Status DC Sodium Bicarbonate (Sodium Bicarb Adult 8.4% Syr) 50 meq 1X ONCE IV Last administered on 09/25/19at 21:47; Start 09/25/19 at 22:00; Stop 09/25/19 at 22:01; Status DC Potassium Acetate 40 meq/Magnesium Sulfate 5 meq/ Multivitamins 10 ml/Chromium/ Copper/Manganese/ Seleni/Zn 1 ml/ Insulin Human Regular 30 unit/ Total Parenteral Nutrition/Amino Acids/Dextrose/ Fat Emulsion Intravenous 1,920 ml @ 80 mls/hr TPN CONT IV Last administered on 09/26/19at 22:28; Start 09/26/19 at 22:00; Stop 09/27/19 at 21:59; Status DC Sodium Chloride 500 ml @ 500 mls/hr 1X ONCE IV Last administered on 09/27/19at 06:39; Start 09/27/19 at 06:45; Stop 09/27/19 at 07:44; Status DC Potassium Acetate 40 meq/Magnesium Sulfate 5 meq/ Multivitamins 10 ml/Chromium/ Copper/Manganese/ Seleni/Zn 1 ml/ Insulin Human Regular 30 unit/ Total Parenteral Nutrition/Amino Acids/Dextrose/ Fat Emulsion Intravenous 1,920 ml @ 80 mls/hr TPN CONT IV Last administered on 09/27/19at 22:03; Start 09/27/19 at 22:00; Stop 09/28/19 at 21:59; Status DC Metoprolol Tartrate (Lopressor Vial) 5 mg PRN Q6HRS PRN IVP HYPERTENSION Last administered on 11/18/19at 11:57; Start 09/28/19 at 09:00 Potassium Acetate 40 meq/Magnesium Sulfate 5 meq/ Multivitamins 10 ml/Chromium/ Copper/Manganese/ Seleni/Zn 1 ml/ Insulin Human Regular 30 unit/ Total Parenteral Nutrition/Amino Acids/Dextrose/ Fat Emulsion Intravenous 1,920 ml @ 80 mls/hr TPN CONT IV Last administered on 09/28/19at 21:26; Start 09/28/19 at 22:00; Stop 09/29/19 at 21:59; Status DC Potassium Acetate 40 meq/Magnesium Sulfate 5 meq/ Multivitamins 10 ml/Chromium/ Copper/Manganese/ Seleni/Zn 1 ml/ Insulin Human Regular 30 unit/ Total Parenteral Nutrition/Amino Acids/Dextrose/ Fat Emulsion Intravenous 1,920 ml @ 80 mls/hr TPN CONT IV Last administered on 09/29/19at 23:23; Start 09/29/19 at 22:00; Stop 09/30/19 at 21:59; Status DC Potassium Acetate 40 meq/Magnesium Sulfate 5 meq/ Multivitamins 10 ml/Chromium/ Copper/Manganese/ Seleni/Zn 1 ml/ Insulin Human Regular 30 unit/ Total Paren teral Nutrition/Amino Acids/Dextrose/ Fat Emulsion Intravenous 1,920 ml @ 80 mls/hr TPN CONT IV Last administered on 09/30/19at 21:35; Start 09/30/19 at 22:00; Stop 10/01/19 at 21:59; Status DC Furosemide (Lasix) 20 mg 1X ONCE IVP Last administered on 10/01/19at 06:26; Start 10/01/19 at 06:15; Stop 10/01/19 at 06:16; Status DC Methylprednisolone Sodium Succinate (SOLU-Medrol 125MG VIAL) 125 mg 1X ONCE IV Last administered on 10/01/19at 06:26; Start 10/01/19 at 06:15; Stop 10/01/19 at 06:16; Status DC Albuterol/ Ipratropium (Duoneb) 3 ml Q4HRS NEB Last administered on 11/21/19at 08:21; Start 10/01/19 at 08:00 Fentanyl Citrate 30 ml @ 0 mls/hr CONT PRN IV SEE PROTOCOL Last administered on 10/22/19at 08:03; Start 10/01/19 at 06:00; Stop 10/22/19 at 12:42; Status DC Propofol 100 ml @ 0 mls/hr CONT PRN IV SEE PROTOCOL Last administered on 10/08/19at 23:50; Start 10/01/19 at 06:00 Fentanyl Citrate (Fentanyl 2ml Vial) 25 mcg PRN Q1HR PRN IV SEE COMMENTS Last administered on 11/19/19at 23:56; Start 10/01/19 at 06:00 Fentanyl Citrate (Fentanyl 2ml Vial) 50 mcg PRN Q1HR PRN IV SEE COMMENTS Last administered on 11/21/19at 08:24; Start 10/01/19 at 06:00 Chlorhexidine Gluconate (Peridex) 15 ml BID MM ; Start 10/01/19 at 09:00; Stop 10/01/19 at 07:58; Status DC Potassium Acetate 40 meq/Magnesium Sulfate 5 meq/ Multivitamins 10 ml/Chromium/ Copper/Manganese/ Seleni/Zn 1 ml/ Insulin Human Regular 30 unit/ Total Parenteral Nutrition/Amino Acids/Dextrose/ Fat Emulsion Intravenous 1,920 ml @ 80 mls/hr TPN CONT IV Last administered on 10/01/19at 21:19; Start 10/01/19 at 22:00; Stop 10/02/19 at 21:59; Status DC Acetylcysteine (Mucomyst 20% Resp Treatment) 600 mg BID NEB Last administered on 10/07/19at 09:33; Start 10/01/19 at 21:00; Stop 10/07/19 at 10:39; Status DC Magnesium Sulfate 100 ml @ 25 mls/hr 1X ONCE IV Last administered on 10/01/19at 15:48; Start 10/01/19 at 15:45; Stop 10/01/19 at 19:44; Status DC Potassium Acetate 40 meq/Magnesium Sulfate 5 meq/ Multivitamins 10 ml/Chromium/ Copper/Manganese/ Seleni/Zn 1 ml/ Insulin Human Regular 30 unit/ Total Parenteral Nutrition/Amino Acids/Dextrose/ Fat Emulsion Intravenous 1,920 ml @ 80 mls/hr TPN CONT IV Last administered on 10/02/19at 21:35; Start 10/02/19 at 22:00; Stop 10/03/19 at 21:59; Status DC Potassium Chloride/Water 100 ml @ 100 mls/hr Q1H IV Last administered on 10/03/19at 08:31; Start 10/03/19 at 07:00; Stop 10/03/19 at 08:59; Status DC Potassium Acetate 40 meq/Magnesium Sulfate 5 meq/ Multivitamins 10 ml/Chromium/ Copper/Manganese/ Seleni/Zn 1 ml/ Insulin Human Regular 30 unit/ Total Parenteral Nutrition/Amino Acids/Dextrose/ Fat Emulsion Intravenous 1,920 ml @ 80 mls/hr TPN CONT IV Last administered on 10/03/19at 21:54; Start 10/03/19 at 22:00; Stop 10/04/19 at 19:34; Status DC Lidocaine HCl (Buffered Lidocaine 1%) 3 ml STK-MED ONCE .ROUTE ; Start 10/03/19 at 12:14; Stop 10/03/19 at 12:14; Status DC Lidocaine HCl (Buffered Lidocaine 1%) 3 ml 1X ONCE IJ Last administered on 10/03/19at 13:11; Start 10/03/19 at 13:00; Stop 10/03/19 at 13:01; Status DC Magnesium Sulfate 50 ml @ 25 mls/hr 1X ONCE IV ; Start 10/04/19 at 08:15; Stop 10/04/19 at 10:14; Status DC Potassium Acetate 40 meq/Magnesium Sulfate 10 meq/ Multivitamins 10 ml/Chromium/ Copper/Manganese/ Seleni/Zn 1 ml/ Insulin Human Regular 20 unit/ Total Parenteral Nutrition/Amino Acids/Dextrose/ Fat Emulsion Intravenous 1,920 ml @ 80 mls/hr TPN CONT IV Last administered on 10/04/19at 21:32; Start 10/04/19 at 22:00; Stop 10/05/19 at 21:59; Status DC Potassium Chloride/Water 100 ml @ 100 mls/hr Q1H IV Last administered on 10/05/19at 09:12; Start 10/05/19 at 08:00; Stop 10/05/19 at 09:59; Status DC Alteplase, Recombinant (Cathflo For Central Catheter Clearance) 4 mg 1X ONCE INT CAT ; Start 10/05/19 at 09:15; Stop 10/05/19 at 09:16; Status UNV Alteplase, Recombinant (Cathflo For Central Catheter Clearance) 4 mg 1X ONCE INT CAT ; Start 10/05/19 at 09:15; Stop 10/05/19 at 09:16; Status UNV Alteplase, Recombinant (Cathflo For Central Catheter Clearance) 4 mg 1X ONCE INT CAT ; Start 10/05/19 at 09:15; Stop 10/05/19 at 09:16; Status UNV Alteplase, Recombinant 4 mg/ Sodium Chloride 20 ml @ 20 mls/hr 1X ONCE IV Last administered on 10/05/19at 10:10; Start 10/05/19 at 10:00; Stop 10/05/19 at 10:59; Status DC Alteplase, Recombinant 4 mg/ Sodium Chloride 20 ml @ 20 mls/hr 1X ONCE IV Last administered on 10/05/19at 10:09; Start 10/05/19 at 10:00; Stop 10/05/19 at 10:59; Status DC Alteplase, Recombinant 4 mg/ Sodium Chloride 20 ml @ 20 mls/hr 1X ONCE IV Last administered on 10/05/19at 10:09; Start 10/05/19 at 10:00; Stop 10/05/19 at 10:59; Status DC Potassium Acetate 60 meq/Magnesium Sulfate 10 meq/ Multivitamins 10 ml/Chromium/ Copper/Manganese/ Seleni/Zn 1 ml/ Insulin Human Regular 20 unit/ Total Parenteral Nutrition/Amino Acids/Dextrose/ Fat Emulsion Intravenous 1,920 ml @ 80 mls/hr TPN CONT IV Last administered on 10/05/19at 21:55; Start 10/05/19 at 22:00; Stop 10/06/19 at 21:59; Status DC Albumin Human 500 ml @ 125 mls/hr 1X ONCE IV Last administered on 10/06/19at 12:01; Start 10/06/19 at 11:15; Stop 10/06/19 at 15:14; Status DC Sodium Chloride 500 ml @ 500 mls/hr 1X ONCE IV Last administered on 10/06/19at 13:50; Start 10/06/19 at 11:15; Stop 10/06/19 at 12:14; Status DC Potassium Acetate 60 meq/Magnesium Sulfate 14 meq/ Multivitamins 10 ml/Chromium/ Copper/Manganese/ Seleni/Zn 1 ml/ Insulin Human Regular 20 unit/ Total Parenteral Nutrition/Amino Acids/Dextrose/ Fat Emulsion Intravenous 1,920 ml @ 80 mls/hr TPN CONT IV Last administered on 10/06/19at 22:26; Start 10/06/19 at 22:00; Stop 10/07/19 at 21:59; Status DC Ciprofloxacin/ Dextrose 200 ml @ 200 mls/hr Q12HR IV Last administered on 10/13/19at 08:27; Start 10/06/19 at 21:00; Stop 10/13/19 at 08:56; Status DC Albumin Human 250 ml @ 62.5 mls/hr 1X ONCE IV Last administered on 10/07/19at 11:09; Start 10/07/19 at 11:00; Stop 10/07/19 at 14:59; Status DC Furosemide (Lasix) 20 mg 1X ONCE IVP Last administered on 10/07/19at 14:52; Start 10/07/19 at 10:45; Stop 10/07/19 at 10:49; Status DC Potassium Acetate 60 meq/Magnesium Sulfate 14 meq/ Multivitamins 10 ml/Chromium/ Copper/Manganese/ Seleni/Zn 1 ml/ Insulin Human Regular 15 unit/ Total Parenteral Nutrition/Amino Acids/Dextrose/ Fat Emulsion Intravenous 1,920 ml @ 80 mls/hr TPN CONT IV Last administered on 10/07/19at 22:08; Start 10/07/19 at 22:00; Stop 10/08/19 at 21:59; Status DC Potassium Acetate 60 meq/Magnesium Sulfate 14 meq/ Multivitamins 10 ml/Chromium/ Copper/Manganese/ Seleni/Zn 1 ml/ Insulin Human Regular 15 unit/ Total Parenteral Nutrition/Amino Acids/Dextrose/ Fat Emulsion Intravenous 1,920 ml @ 80 mls/hr TPN CONT IV Last administered on 10/08/19at 22:12; Start 10/08/19 at 22:00; Stop 10/09/19 at 21:59; Status DC Potassium Acetate 60 meq/Magnesium Sulfate 14 meq/ Multivitamins 10 ml/Chromium/ Copper/Manganese/ Seleni/Zn 1 ml/ Insulin Human Regular 15 unit/ Total Parenteral Nutrition/Amino Acids/Dextrose/ Fat Emulsion Intravenous 1,920 ml @ 80 mls/hr TPN CONT IV Last administered on 10/09/19at 22:22; Start 10/09/19 at 22:00; Stop 10/10/19 at 21:59; Status DC Furosemide (Lasix) 20 mg 1X ONCE IVP Last administered on 10/10/19at 11:07; Start 10/10/19 at 10:30; Stop 10/10/19 at 10:34; Status DC Potassium Acetate 60 meq/Magnesium Sulfate 14 meq/ Multivitamins 10 ml/Chromium/ Copper/Manganese/ Seleni/Zn 1 ml/ Insulin Human Regular 15 unit/ Sodium Chloride 20 meq/Total Parenteral Nutrition/Amino Acids/Dextrose/ Fat Emulsion Intravenous 1,920 ml @ 80 mls/hr TPN CONT IV Last administered on 10/10/19at 21:54; Start 10/10/19 at 22:00; Stop 10/11/19 at 21:59; Status DC Potassium Acetate 30 meq/Magnesium Sulfate 14 meq/ Multivitamins 10 ml/Chromium/ Copper/Manganese/ Seleni/Zn 1 ml/ Insulin Human Regular 15 unit/ Sodium Chloride 20 meq/Potassium Chloride 30 meq/ Total Parenteral Nutrition/Amino Acids/Dextrose/ Fat Emulsion Intravenous 1,920 ml @ 80 mls/hr TPN CONT IV Last administered on 10/11/19at 21:46; Start 10/11/19 at 22:00; Stop 10/12/19 at 21:59; Status DC Sodium Chloride 80 meq/Potassium Chloride 30 meq/ Potassium Acetate 30 meq/Magnesium Sulfate 14 meq/ Multivitamins 10 ml/Chromium/ Copper/Manganese/ Seleni/Zn 1 ml/ Insulin Human Regular 15 unit/ Total Parenteral Nutrition/Amino Acids/Dextrose/ Fat Emulsion Intravenous 1,920 ml @ 80 mls/hr TPN CONT IV Last administered on 10/12/19at 22:33; Start 10/12/19 at 22:00; Stop 10/13/19 at 21:59; Status DC Furosemide (Lasix) 40 mg 1X ONCE IVP Last administered on 10/12/19at 16:27; Start 10/12/19 at 15:30; Stop 10/12/19 at 15:33; Status DC Albumin Human 250 ml @ 62.5 mls/hr 1X ONCE IV Last administered on 10/12/19at 16:27; Start 10/12/19 at 15:30; Stop 10/12/19 at 19:29; Status DC Sodium Chloride 80 meq/Potassium Chloride 30 meq/ Potassium Acetate 30 meq/Magnesium Sulfate 14 meq/ Multivitamins 10 ml/Chromium/ Copper/Manganese/ Seleni/Zn 1 ml/ Insulin Human Regular 15 unit/ Total Parenteral Nutrition/Amino Acids/Dextrose/ Fat Emulsion Intravenous 1,920 ml @ 80 mls/hr TPN CONT IV Last administered on 10/13/19at 22:25; Start 10/13/19 at 22:00; Stop 10/14/19 at 21:59; Status DC Sodium Chloride 80 meq/Potassium Chloride 30 meq/ Potassium Acetate 30 meq/Magnesium Sulfate 14 meq/ Multivitamins 10 ml/Chromium/ Copper/Manganese/ Seleni/Zn 1 ml/ Insulin Human Regular 15 unit/ Total Parenteral Nutrition/Amino Acids/Dextrose/ Fat Emulsion Intravenous 1,920 ml @ 80 mls/hr TPN CONT IV Last administered on 10/14/19at 21:32; Start 10/14/19 at 22:00; Stop 10/15/19 at 21:59; Status DC Sodium Chloride 80 meq/Potassium Chloride 30 meq/ Potassium Acetate 30 meq/Magnesium Sulfate 14 meq/ Multivitamins 10 ml/Chromium/ Copper/Manganese/ Seleni/Zn 1 ml/ Insulin Human Regular 15 unit/ Total Parenteral Nutrition/Amino Acids/Dextrose/ Fat Emulsion Intravenous 1,920 ml @ 80 mls/hr TPN CONT IV Last administered on 10/15/19at 21:53; Start 10/15/19 at 22:00; Stop 10/16/19 at 21:59; Status DC Acetylcysteine (Mucomyst 20% Resp Treatment) 600 mg RTBID NEB Last administered on 11/21/19at 08:21; Start 10/15/19 at 12:00 Sodium Chloride 80 meq/Potassium Chloride 30 meq/ Potassium Acetate 30 meq/Magnesium Sulfate 14 meq/ Multivitamins 10 ml/Chromium/ Copper/Manganese/ Seleni/Zn 1 ml/ Insulin Human Regular 15 unit/ Total Parenteral Nutrition/Amino Acids/Dextrose/ Fat Emulsion Intravenous 1,920 ml @ 80 mls/hr TPN CONT IV Last administered on 10/16/19at 22:06; Start 10/16/19 at 22:00; Stop 10/17/19 at 21:59; Status DC Meropenem 500 mg/ Sodium Chloride 50 ml @ 100 mls/hr Q6HRS IV Last administered on 11/08/19at 06:15; Start 10/16/19 at 18:00; Stop 11/08/19 at 08:23; Status DC Daptomycin 500 mg/ Sodium Chloride 50 ml @ 100 mls/hr Q24H IV Last administered on 10/24/19at 21:47; Start 10/16/19 at 19:00; Stop 10/25/19 at 08:13; Status DC Sodium Chloride 80 meq/Potassium Chloride 30 meq/ Potassium Acetate 30 meq/Magnesium Sulfate 14 meq/ Multivitamins 10 ml/Chromium/ Copper/Manganese/ Seleni/Zn 1 ml/ Insulin Human Regular 15 unit/ Total Parenteral Nutrition/Amino Acids/Dextrose/ Fat Emulsion Intravenous 1,920 ml @ 80 mls/hr TPN CONT IV Last administered on 10/17/19at 22:09; Start 10/17/19 at 22:00; Stop 10/18/19 at 21:59; Status DC Heparin Sodium (Porcine) 1000 unit/Sodium Chloride 1,001 ml @ 1,001 mls/hr 1X ONCE IRR ; Start 10/18/19 at 06:00; Stop 10/18/19 at 06:59; Status DC Propofol (Diprivan) 200 mg STK-MED ONCE IV ; Start 10/18/19 at 07:44; Stop 10/18/19 at 07:44; Status DC Lidocaine HCl (Lidocaine Pf 2% Vial) 5 ml STK-MED ONCE .ROUTE ; Start 10/18/19 at 07:44; Stop 10/18/19 at 07:44; Status DC Fentanyl Citrate (Fentanyl 2ml Vial) 100 mcg STK-MED ONCE .ROUTE ; Start 10/18/19 at 07:44; Stop 10/18/19 at 07:44; Status DC Rocuronium [place] (Zemuron) 100 mg STK-MED ONCE .ROUTE ; Start 10/18/19 at 07:44; Stop 10/18/19 at 07:44; Status DC Micafungin Sodium 100 mg/Dextrose 100 ml @ 100 mls/hr Q24H IV Last administered on 11/21/19at 08:25; Start 10/18/19 at 08:30 Bupivacaine HCl/ Epinephrine Bitart (Sensorcain-Epi 0.5%-1:[id number] Mpf) 30 ml STK-MED ONCE .ROUTE ; Start 10/18/19 at 08:34; Stop 10/18/19 at 08:35; Status DC Iohexol (Omnipaque 300 Mg/ml) 50 ml STK-MED ONCE .ROUTE Last administered on 10/18/19at 13:30; Start 10/18/19 at 08:35; Stop 10/18/19 at 08:35; Status DC Sodium Chloride 80 meq/Potassium Chloride 30 meq/ Potassium Acetate 30 meq/Magnesium Sulfate 14 meq/ Multivitamins 10 ml/Chromium/ Copper/Manganese/ Seleni/Zn 1 ml/ Insulin Human Regular 15 unit/ Total Parenteral Nutrition/Amino Acids/Dextrose/ Fat Emulsion Intravenous 1,920 ml @ 80 mls/hr TPN CONT IV Last administered on 10/19/19at 01:22; Start 10/18/19 at 22:00; Stop 10/19/19 at 21:59; Status DC Phenylephrine HCl (Brayden-Synephrine Inj) 10 mg STK-MED ONCE .ROUTE ; Start 10/18/19 at 10:15; Stop 10/18/19 at 10:15; Status DC Desflurane (Suprane) 90 ml STK-MED ONCE IH ; Start 10/18/19 at 10:18; Stop 10/18/19 at 10:19; Status DC Albumin Human 500 ml @ As Directed STK-MED ONCE IV ; Start 10/18/19 at 11:06; Stop 10/18/19 at 11:06; Status DC Vasopressin (Vasostrict) 20 unit STK-MED ONCE .ROUTE ; Start 10/18/19 at 12:23; Stop 10/18/19 at 12:23; Status DC Phenylephrine HCl (Brayden-Synephrine Inj) 10 mg STK-MED ONCE .ROUTE ; Start 10/18/19 at 13:33; Stop 10/18/19 at 13:33; Status DC Phenylephrine HCl (Brayden-Synephrine Inj) 10 mg STK-MED ONCE .ROUTE ; Start 10/18/19 at 13:33; Stop 10/18/19 at 13:33; Status DC Ondansetron HCl (Zofran) 4 mg STK-MED ONCE .ROUTE ; Start 10/18/19 at 13:33; Stop 10/18/19 at 13:33; Status DC Enoxaparin Sodium (Lovenox 40mg Syringe) 40 mg Q24H SQ Last administered on 11/21/19at 08:25; Start 10/19/19 at 08:00 Sodium Chloride (Normal Saline Flush) 3 ml QSHIFT PRN IV AFTER MEDS AND BLOOD DRAWS; Start 10/18/19 at 14:45 Naloxone HCl (Narcan) 0.4 mg PRN Q2MIN PRN IV SEE INSTRUCTIONS; Start 10/18/19 at 14:45 Sodium Chloride 1,000 ml @ 25 mls/hr Q24H IV Last administered on 11/20/19at 20:55; Start 10/18/19 at 14:33 Morphine Sulfate (Morphine Sulfate) 1 mg PRN Q1HR PRN IV PAIN Last administered on 11/12/19at 18:28; Start 10/18/19 at 14:45 Midazolam HCl 100 mg/Sodium Chloride 100 ml @ 1 mls/hr CONT PRN IV SEE I/O RECORD Last administered on 10/21/19at 18:48; Start 10/18/19 at 14:45 Phenylephrine HCl (PHENYLEPHRINE in 0.9% NACL PF) 1 mg STK-MED ONCE IV ; Start 10/18/19 at 14:44; Stop 10/18/19 at 14:45; Status DC Ephedrine Sulfate (ePHEDrine PF IN SALINE SYRINGE) 50 mg STK-MED ONCE IV ; Start 10/18/19 at 14:45; Stop 10/18/19 at 14:45; Status DC Vasopressin 20 unit/Dextrose 101 ml @ 12 mls/hr CONT PRN IV SEE I/O RECORD Last administered on 10/25/19at 04:17; Start 10/18/19 at 15:30 Sodium Chloride 1,000 ml @ 1,000 mls/hr 1X ONCE IV Last administered on 10/18/19at 15:42; Start 10/18/19 at 15:45; Stop 10/18/19 at 16:44; Status DC Albumin Human 500 ml @ 125 mls/hr 1X ONCE IV ; Start 10/18/19 at 16:00; Stop 10/18/19 at 19:59; Status DC Albumin Human 500 ml @ 125 mls/hr PRN Q1HR PRN IV PER PROTOCOL; Start 10/18/19 at 15:45 Magnesium Sulfate 50 ml @ 25 mls/hr 1X ONCE IV Last administered on 10/18/19at 17:02; Start 10/18/19 at 16:30; Stop 10/18/19 at 18:29; Status DC Sodium Bicarbonate (Sodium Bicarb Adult 8.4% Syr) 50 meq STK-MED ONCE .ROUTE ; Start 10/18/19 at 16:20; Stop 10/18/19 at 16:20; Status DC Sodium Bicarbonate (Sodium Bicarb Adult 8.4% Syr) 100 meq 1X ONCE IV Last administered on 10/18/19at 17:07; Start 10/18/19 at 16:30; Stop 10/18/19 at 16:31; Status DC Sodium Bicarbonate 150 meq/Dextrose 1,150 ml @ 75 mls/hr 1X ONCE IV Last administered on 10/18/19at 20:02; Start 10/18/19 at 16:30; Stop 10/19/19 at 07:49; Status DC Sodium Chloride 80 meq/Potassium Chloride 30 meq/ Potassium Acetate 30 meq/Magnesium Sulfate 14 meq/ Multivitamins 10 ml/Chromium/ Copper/Manganese/ Se dinorah/Zn 1 ml/ Insulin Human Regular 15 unit/ Total Parenteral Nutrition/Amino Acids/Dextrose/ Fat Emulsion Intravenous 1,920 ml @ 80 mls/hr TPN CONT IV Last administered on 10/19/19at 23:05; Start 10/19/19 at 22:00; Stop 10/20/19 at 21:59; Status DC Sodium Chloride 100 meq/Potassium Chloride 30 meq/ Potassium Acetate 30 meq/Magnesium Sulfate 12 meq/ Multivitamins 10 ml/Chromium/ Copper/Manganese/ Seleni/Zn 1 ml/ Insulin Human Regular 15 unit/ Total Parenteral Nutrition/Amino Acids/Dextrose/ Fat Emulsion Intravenous 1,920 ml @ 80 mls/hr TPN CONT IV Last administered on 10/20/19at 21:52; Start 10/20/19 at 22:00; Stop 10/21/19 at 21:59; Status DC Sodium Chloride 100 meq/Potassium Chloride 30 meq/ Potassium Acetate 30 meq/Magnesium Sulfate 12 meq/ Multivitamins 10 ml/Chromium/ Copper/Manganese/ Seleni/Zn 1 ml/ Insulin Human Regular 15 unit/ Total Parenteral Nutrition/Amino Acids/Dextrose/ Fat Emulsion Intravenous 1,920 ml @ 80 mls/hr TPN CONT IV Last administered on 10/21/19at 21:46; Start 10/21/19 at 22:00; Stop 10/22/19 at 21:59; Status DC Sodium Chloride 100 meq/Potassium Chloride 30 meq/ Potassium Acetate 30 meq/Magnesium Sulfate 12 meq/ Multivitamins 10 ml/Chromium/ Copper/Manganese/ Seleni/Zn 1 ml/ Insulin Human Regular 15 unit/ Total Parenteral Nutrition/Amino Acids/Dextrose/ Fat Emulsion Intravenous 1,800 ml @ 75 mls/hr TPN CONT IV Last administered on 10/22/19at 22:04; Start 10/22/19 at 22:00; Stop 10/23/19 at 21:59; Status DC Fentanyl Citrate 55 ml @ 0 mls/hr CONT PRN IV SEE COMMENTS Last administered on 10/24/19at 23:55; Start 10/22/19 at 13:00; Stop 10/27/19 at 17:28; Status DC Sodium Chloride 100 meq/Potassium Chloride 30 meq/ Potassium Acetate 30 meq/Magnesium Sulfate 12 meq/ Multivitamins 10 ml/Chromium/ Copper/Manganese/ Seleni/Zn 1 ml/ Insulin Human Regular 15 unit/ Total Parenteral Nutrition/Amino Acids/Dextrose/ Fat Emulsion Intravenous 1,680 ml @ 70 mls/hr TPN CONT IV La st administered on 10/23/19at 21:23; Start 10/23/19 at 22:00; Stop 10/24/19 at 21:59; Status DC Sodium Chloride 110 meq/Potassium Chloride 30 meq/ Potassium Acetate 30 meq/Magnesium Sulfate 15 meq/ Multivitamins 10 ml/Chromium/ Copper/Manganese/ Seleni/Zn 1 ml/ Insulin Human Regular 15 unit/ Total Parenteral Nutrition/Amino Acids/Dextrose/ Fat Emulsion Intravenous 1,680 ml @ 70 mls/hr TPN CONT IV Last administered on 10/24/19at 21:48; Start 10/24/19 at 22:00; Stop 10/25/19 at 21:59; Status DC Sodium Chloride 110 meq/Potassium Chloride 30 meq/ Potassium Acetate 30 meq/Magnesium Sulfate 15 meq/ Multivitamins 10 ml/Chromium/ Copper/Manganese/ Seleni/Zn 1 ml/ Insulin Human Regular 15 unit/ Total Parenteral Nutrition/Amino Acids/Dextrose/ Fat Emulsion Intravenous 1,680 ml @ 70 mls/hr TPN CONT IV Last administered on 10/25/19at 21:33; Start 10/25/19 at 22:00; Stop 10/26/19 at 21:59; Status DC Sodium Chloride 110 meq/Potassium Chloride 30 meq/ Potassium Acetate 30 meq/Magnesium Sulfate 15 meq/ Multivitamins 10 ml/Chromium/ Copper/Manganese/ Seleni/Zn 1 ml/ Insulin Human Regular 15 unit/ Total Parenteral Nutrition/Amino Acids/Dextrose/ Fat Emulsion Intravenous 1,680 ml @ 70 mls/hr TPN CONT IV Last administered on 10/26/19at 21:51; Start 10/26/19 at 22:00; Stop 10/27/19 at 21:59; Status DC Sodium Chloride 90 meq/Potassium Chloride 30 meq/ Potassium Acetate 30 meq/Magnesium Sulfate 15 meq/ Multivitamins 10 ml/Chromium/ Copper/Manganese/ Seleni/Zn 1 ml/ Insulin Human Regular 15 unit/ Total Parenteral Nutrition/Amino Acids/Dextrose/ Fat Emulsion Intravenous 1,680 ml @ 70 mls/hr TPN CONT IV Last administered on 10/27/19at 22:38; Start 10/27/19 at 22:00; Stop 10/28/19 at 21:59; Status DC Fentanyl Citrate 30 ml @ 0 mls/hr CONT PRN IV SEE I/O RECORD; Start 10/27/19 at 17:30 Fentanyl (Duragesic 12mcg/ Hr Patch) 1 patch Q3DAYS TD Last administered on 11/21/19at 08:25; Start 10/28/19 at 09:00 Sodium Chloride 90 meq/Potassium Chloride 30 meq/ Potassium Acetate 30 meq/Magnesium Sulfate 15 meq/ Multivitamins 10 ml/Chromium/ Copper/Manganese/ Seleni/Zn 1 ml/ Insulin Human Regular 15 unit/ Total Parenteral Nutrition/Amino Acids/Dextrose/ Fat Emulsion Intravenous 1,680 ml @ 70 mls/hr TPN CONT IV Last administered on 10/28/19at 21:59; Start 10/28/19 at 22:00; Stop 10/29/19 at 21:59; Status DC Sodium Chloride 90 meq/Potassium Chloride 30 meq/ Potassium Acetate 30 meq/Magnesium Sulfate 15 meq/ Multivitamins 10 ml/Chromium/ Copper/Manganese/ Seleni/Zn 1 ml/ Insulin Human Regular 15 unit/ Total Parenteral Nutrition/Amino Acids/Dextrose/ Fat Emulsion Intravenous 1,680 ml @ 70 mls/hr TPN CONT IV Last administered on 10/29/19at 21:35; Start 10/29/19 at 22:00; Stop 10/30/19 at 21:59; Status DC Vancomycin HCl (Vanco Per Pharmacy) 1 each PRN DAILY PRN MC SEE COMMENTS Last administered on 11/01/19at 02:46; Start 10/30/19 at 09:15; Stop 11/02/19 at 07:41; Status DC Ciprofloxacin/ Dextrose 200 ml @ 200 mls/hr Q12HR IV Last administered on 11/07/19at 21:02; Start 10/30/19 at 10:00; Stop 11/08/19 at 08:20; Status DC Vancomycin HCl 2 gm/Sodium Chloride 500 ml @ 250 mls/hr 1X ONCE IV Last administered on 10/30/19at 10:34; Start 10/30/19 at 10:00; Stop 10/30/19 at 11:59; Status DC Sodium Chloride 90 meq/Potassium Chloride 30 meq/ Potassium Acetate 30 meq/Magnesium Sulfate 15 meq/ Multivitamins 10 ml/Chromium/ Copper/Manganese/ Seleni/Zn 1 ml/ Insulin Human Regular 15 unit/ Total Parenteral Nutrition/Amino Acids/Dextrose/ Fat Emulsion Intravenous 1,680 ml @ 70 mls/hr TPN CONT IV Last administered on 10/30/19at 22:02; Start 10/30/19 at 22:00; Stop 10/31/19 at 21:59; Status DC Diphenhydramine HCl (Benadryl) 25 mg 1X ONCE IVP Last administered on 10/30/19at 14:26; Start 10/30/19 at 14:30; Stop 10/30/19 at 14:31; Status DC Vancomycin HCl 1.5 gm/Sodium Chloride 500 ml @ 250 mls/hr Q8H IV Last administered on 10/31/19at 03:08; Start 10/30/19 at 18:30; Stop 10/31/19 at 12:24; Status DC Vancomycin HCl (Vancomycin Trough Level) 1 each 1X ONCE MC Last administered on 10/31/19at 10:00; Start 10/31/19 at 10:00; Stop 10/31/19 at 10:01; Status DC Sodium Chloride 90 meq/Potassium Chloride 30 meq/ Potassium Acetate 30 meq/Magnesium Sulfate 15 meq/ Multivitamins 10 ml/Chromium/ Copper/Manganese/ Seleni/Zn 1 ml/ Insulin Human Regular 15 unit/ Total Parenteral Nutrition/Amino Acids/Dextrose/ Fat Emulsion Intravenous 1,680 ml @ 70 mls/hr TPN CONT IV Last administered on 10/31/19at 22:13; Start 10/31/19 at 22:00; Stop 11/01/19 at 21:59; Status DC Vancomycin HCl (Vancomycin Random Level) 1 each 1X ONCE MC Last administered on 11/01/19at 01:00; Start 11/01/19 at 01:00; Stop 11/01/19 at 01:01; Status DC Vancomycin HCl 1.5 gm/Sodium Chloride 500 ml @ 250 mls/hr Q12H IV Last administered on 11/01/19at 22:07; Start 11/01/19 at 10:00; Stop 11/02/19 at 07:41; Status DC Vancomycin HCl (Vancomycin Trough Level) 1 each 1X ONCE MC ; Start 11/02/19 at 09:30; Stop 11/02/19 at 09:31; Status Cancel Sodium Chloride 90 meq/Potassium Chloride 30 meq/ Potassium Acetate 30 meq/Magnesium Sulfate 15 meq/ Multivitamins 10 ml/Chromium/ Copper/Manganese/ Seleni/Zn 1 ml/ Insulin Human Regular 15 unit/ Total Parenteral Nutrition/Amino Acids/Dextrose/ Fat Emulsion Intravenous 1,680 ml @ 70 mls/hr TPN CONT IV Last administered on 11/01/19at 22:08; Start 11/01/19 at 22:00; Stop 11/02/19 at 21:59; Status DC Alteplase, Recombinant (Cathflo For Central Catheter Clearance) 1 mg 1X ONCE INT CAT Last administered on 11/01/19at 11:49; Start 11/01/19 at 11:00; Stop 11/01/19 at 11:01; Status DC Daptomycin 500 mg/ Sodium Chloride 50 ml @ 100 mls/hr Q24H IV Last administered on 11/11/19at 08:25; Start 11/02/19 at 09:00; Stop 11/11/19 at 08:38; Status DC Sodium Chloride 90 meq/Potassium Chloride 30 meq/ Potassium Acetate 30 m eq/Magnesium Sulfate 15 meq/ Multivitamins 10 ml/Chromium/ Copper/Manganese/ Seleni/Zn 1 ml/ Insulin Human Regular 15 unit/ Total Parenteral Nutrition/Amino Acids/Dextrose/ Fat Emulsion Intravenous 1,680 ml @ 70 mls/hr TPN CONT IV Last administered on 11/02/19at 22:55; Start 11/02/19 at 22:00; Stop 11/03/19 at 21:59; Status DC Sodium Chloride 90 meq/Potassium Chloride 30 meq/ Potassium Acetate 30 meq/Magnesium Sulfate 15 meq/ Multivitamins 10 ml/Chromium/ Copper/Manganese/ Seleni/Zn 1 ml/ Insulin Human Regular 15 unit/ Total Parenteral Nutrition/Amino Acids/Dextrose/ Fat Emulsion Intravenous 1,680 ml @ 70 mls/hr TPN CONT IV [facility] administered on 11/03/19at 22:06; Start 11/03/19 at 22:00; Stop 11/04/19 at 21:59; Status DC Diphenhydramine HCl (Benadryl) 50 mg STK-MED ONCE .ROUTE ; Start 11/03/19 at 18:34; Stop 11/03/19 at 18:35; Status DC Diphenhydramine HCl (Benadryl) 25 mg 1X ONCE IM ; Start 11/03/19 at 18:45; Stop 11/03/19 at 18:46; Status DC Diphenhydramine HCl (Benadryl) 25 mg 1X ONCE IVP Last administered on 11/03/19at 18:56; Start 11/03/19 at 19:00; Stop 11/03/19 at 19:01; Status DC Alprazolam (Xanax) 0.5 mg PRN TID PRN PO ANXIETY / AGITATION Last administered on 11/10/19at 11:49; Start 11/04/19 at 08:00; Stop 11/10/19 at 15:54; Status DC Sodium Chloride 110 meq/Potassium Chloride 30 meq/ Potassium Acetate 30 meq/Magnesium Sulfate 15 meq/ Multivitamins 10 ml/Chromium/ Copper/Manganese/ Seleni/Zn 1 ml/ Insulin Human Regular 15 unit/ Total Parenteral Nutrition/Amino Acids/Dextrose/ Fat Emulsion Intravenous 1,680 ml @ 70 mls/hr TPN CONT IV Last administered on 11/04/19at 21:21; Start 11/04/19 at 22:00; Stop 11/05/19 at 21:59; Status DC Sodium Chloride 110 meq/Potassium Chloride 30 meq/ Potassium Acetate 30 meq/Magnesium Sulfate 15 meq/ Multivitamins 10 ml/Chromium/ Copper/Manganese/ Seleni/Zn 1 ml/ Insulin Human Regular 15 unit/ Total Parenteral Nutrition/Amino Acids/Dextrose/ Fat Emulsion Intravenous 1,680 ml @ 70 mls/hr TPN CONT IV Last administered on 11/05/19at 22:01; Start 11/05/19 at 22:00; Stop 11/06/19 at 21:59; Status DC Alteplase, Recombinant (Cathflo For Central Catheter Clearance) 1 mg 1X ONCE INT CAT Last administered on 11/06/19at 08:23; Start 11/06/19 at 08:15; Stop 11/06/19 at 08:16; Status DC Sodium Chloride 110 meq/Sodium Phosphate 10 mmol/ Potassium Chloride 30 meq/ Potassium Acetate 30 meq/Magnesium Sulfate 15 meq/ Multivitamins 10 ml/Chromium/ Copper/Manganese/ Seleni/Zn 1 ml/ Insulin Human Regular 15 unit/ Total Parenteral Nutrition/Amino Acids/Dextrose/ Fat Emulsion Intravenous 1,680 ml @ 70 mls/hr TPN CONT IV Last administered on 11/06/19at 22:03; Start 11/06/19 at 22:00; Stop 11/07/19 at 21:59; Status DC Sodium Chloride 120 meq/Sodium Phosphate 10 mmol/ Potassium Chloride 30 meq/ Potassium Acetate 30 meq/Magnesium Sulfate 15 meq/ Multivitamins 10 ml/Chromium/ Copper/Manganese/ Seleni/Zn 1 ml/ Insulin Human Regular 15 unit/ Total Parenteral Nutrition/Amino Acids/Dextrose/ Fat Emulsion Intravenous 1,680 ml @ 70 mls/hr TPN CONT IV Last administered on 11/07/19at 22:08; Start 11/07/19 at 22:00; Stop 11/08/19 at 21:59; Status DC Ceftazidime/ Avibactam 2.5 gm/ Sodium Chloride 100 ml @ 50 mls/hr Q8HRS IV Last administered on 11/09/19at 05:32; Start 11/08/19 at 14:00; Stop 11/09/19 at 07:48; Status DC Alteplase, Recombinant (Cathflo For Central Catheter Clearance) 1 mg 1X ONCE INT CAT Last administered on 11/08/19at 09:30; Start 11/08/19 at 09:30; Stop 11/08/19 at 09:31; Status DC Sodium Chloride 120 meq/Sodium Phosphate 10 mmol/ Potassium Chloride 30 meq/ Potassium Acetate 30 meq/Magnesium Sulfate 15 meq/ Multivitamins 10 ml/Chromium/ Copper/Manganese/ Seleni/Zn 1 ml/ Insulin Human Regular 15 unit/ Total Parenteral Nutrition/Amino Acids/Dextrose/ Fat Emulsion Intravenous 1,680 ml @ 70 mls/hr TPN CONT IV Last administered on 11/08/19at 22:11; Start 11/08/19 at 22:00; Stop 11/09/19 at 21:59; Status DC Iohexol (Omnipaque 300 Mg/ml) 75 ml 1X ONCE IV Last administered on 11/08/19at 11:30; Start 11/08/19 at 11:30; Stop 11/08/19 at 11:31; Status DC Info (CONTRAST GIVEN -- Rx MONITORING) 1 each PRN DAILY PRN MC SEE COMMENTS; Start 11/08/19 at 11:45; Stop 11/10/19 at 11:44; Status DC Alteplase, Recombinant (Cathflo For Central Catheter Clearance) 1 mg 1X ONCE INT CAT Last administered on 11/08/19at 12:17; Start 11/08/19 at 12:00; Stop 11/08/19 at 12:01; Status DC Cefepime HCl (Maxipime) 2 gm Q12HR IVP Last administered on 11/09/19at 20:53; Start 11/09/19 at 09:00; Stop 11/10/19 at 07:30; Status DC Sodium Chloride 120 meq/Sodium Phosphate 10 mmol/ Potassium Chloride 30 meq/ Potassium Acetate 30 meq/Magnesium Sulfate 15 meq/ Multivitamins 10 ml/Chromium/ Copper/Manganese/ Seleni/Zn 1 ml/ Insulin Human Regular 15 unit/ Total Parenteral Nutrition/Amino Acids/Dextrose/ Fat Emulsion Intravenous 1,680 ml @ 70 mls/hr TPN CONT IV Last administered on 11/09/19at 21:25; Start 11/09/19 at 22:00; Stop 11/10/19 at 21:59; Status DC Ceftazidime/ Avibactam 2.5 gm/ Sodium Chloride 250 ml @ 125 mls/hr Q8HRS IV Last administered on 11/21/19at 05:46; Start 11/10/19 at 08:00 Sodium Chloride 120 meq/Sodium Phosphate 10 mmol/ Potassium Chloride 30 meq/ Potassium Acetate 30 meq/Magnesium Sulfate 15 meq/ Multivitamins 10 ml/Chromium/ Copper/Manganese/ Seleni/Zn 1 ml/ Insulin Human Regular 15 unit/ Total Parenteral Nutrition/Amino Acids/Dextrose/ Fat Emulsion Intravenous 1,680 ml @ 70 mls/hr TPN CONT IV Last administered on 11/10/19at 22:35; Start 11/10/19 at 22:00; Stop 11/11/19 at 21:59; Status DC Alprazolam (Xanax) 0.5 mg PRN QID PRN PO ANXIETY / AGITATION Last administered on 11/14/19at 14:21; Start 11/10/19 at 16:00 Acetaminophen/ Hydrocodone Bitart (Lortab 5/325) 1 tab PRN Q4HRS PRN PO PAIN Last administered on 11/11/19at 19:34; Start 11/10/19 at 16:00 Sodium Chloride 120 meq/Sodium Phosphate 10 mmol/ Potassium Chloride 30 meq/ Potassium Acetate 30 meq/Magnesium Sulfate 15 meq/ Multivitamins 10 ml/Chromium/ Copper/Manganese/ Seleni/Zn 1 ml/ Insulin Human Regular 15 unit/ Total Parenteral Nutrition/Amino Acids/Dextrose/ Fat Emulsion Intravenous 1,680 ml @ 70 mls/hr TPN CONT IV Last administered on 11/11/19at 21:50; Start 11/11/19 at 22:00; Stop 11/12/19 at 21:59; Status DC Sodium Chloride 120 meq/Sodium Phosphate 10 mmol/ Potassium Chloride 30 meq/ Potassium Acetate 30 meq/Magnesium Sulfate 15 meq/ Multivitamins 10 ml/Chromium/ Copper/Manganese/ Seleni/Zn 1 ml/ Insulin Human Regular 15 unit/ Total Parenteral Nutrition/Amino Acids/Dextrose/ Fat Emulsion Intravenous 1,680 ml @ 70 mls/hr TPN CONT IV Last administered on 11/12/19at 22:14; Start 11/12/19 at 22:00; Stop 11/13/19 at 21:59; Status DC Daptomycin 500 mg/ Sodium Chloride 50 ml @ 100 mls/hr Q24H IV Last administered on 11/20/19at 09:32; Start 11/13/19 at 09:00 Sodium Chloride 120 meq/Sodium Phosphate 10 mmol/ Potassium Chloride 30 meq/ Potassium Acetate 30 meq/Magnesium Sulfate 15 meq/ Multivitamins 10 ml/Chromium/ Copper/Manganese/ Seleni/Zn 1 ml/ Insulin Human Regular 15 unit/ Total Parenteral Nutrition/Amino Acids/Dextrose/ Fat Emulsion Intravenous 1,680 ml @ 70 mls/hr TPN CONT IV ; Start 11/13/19 at 22:00; Stop 11/14/19 at 21:59; S tatus Cancel Amino Acids/ Glycerin/ Electrolytes 1,000 ml @ 80 mls/hr [id number] IV Last administered on 11/19/19at 18:10; Start 11/13/19 at 10:15; Stop 11/20/19 at 07:07; Status DC Iohexol (Omnipaque 300 Mg/ml) 50 ml 1X ONCE IJ ; Start 11/15/19 at 11:00; Stop 11/15/19 at 11:01; Status DC Sodium Chloride 500 ml @ 500 mls/hr 1X ONCE IV Last administered on 11/15/19at 18:30; Start 11/15/19 at 18:30; Stop 11/15/19 at 19:29; Status DC Lidocaine HCl (Buffered Lidocaine 1%) 3 ml 1X ONCE INJ ; Start 11/17/19 at 12:15; Stop 11/17/19 at 12:17; Status DC Active Scripts Active Reported Bisoprolol Fumarate 5 Mg Tablet 10 Mg PO DAILY Vitals/I & O Vital Sign - Last 24 Hours 11/20/19 11/20/19 11/20/19 11/20/19 11:00 11:08 11:34 15:00 Temp 99.2 100.6 99.2 100.6 Pulse 119 98 Resp 32 31 29 B/P (MAP) 163/69 (100) 140/77 (98) Pulse Ox 97 98 97 95 O2 Delivery Room Air Room Air Room Air Room Air 11/20/19 11/20/19 11/20/19 11/20/19 15:53 19:25 20:10 20:15 Temp 98.2 98.2 Pulse 120 Resp 28 B/P (MAP) 142/69 (93) Pulse Ox 99 94 O2 Delivery Room Air Room Air Room Air Room Air 11/20/19 11/20/19 11/21/19 11/21/19 22:30 22:56 00:06 03:00 Temp 98.0 99.3 98.0 99.3 Pulse 122 129 Resp 33 28 28 B/P (MAP) 137/84 (101) 173/65 (101) Pulse Ox 96 96 96 95 O2 Delivery Tracheal Collar Room Air Room Air Tracheal Collar 11/21/19 11/21/19 11/21/19 11/21/19 03:35 04:05 05:25 05:30 Pulse 124 Resp 26 B/P (MAP) 154/65 (94) Pulse Ox 97 95 95 O2 Delivery Room Air Room Air Room Air 11/21/19 11/21/19 11/21/19 11/21/19 06:34 07:12 08:24 08:25 Resp 30 Pulse Ox 95 95 95 95 O2 Delivery Room Air Room Air Room Air Room Air Intake and Output 8/2/20 8/2/20 8/3/20 15:00 23:00 07:00 Intake Total 650 ml 1305 ml 680 ml Output Total 350 ml 500 ml 450 ml Balance 300 ml 805 ml 230 ml Justicifation of Admission Dx: Justifications for Admission: Justification of Admission Dx: Yes ABI AHN MD Nov 21, 2019 09:20
--- NOTE | 2019-11-21 09:30 | NUR ---
Wound Care Wound care consult for abd wound due too drainage from previous drain sites. Pt has 3 open draining drain sites to the right side and one on the left. Surrounding skin is red and excoriated. Cleansed area and applied skin prep and drainage bags with holes cut to exact size of wounds to prevent further damage to skin. Incisional vac removed per Dr Servin and vaseline gauze and gauze placed over distal area where a small stitch is coming out. WC will follow up on 11/23/2019 to check bags
--- NOTE | 2019-11-21 09:31 | PDOC ---
[facility] [facility] PROGRESS NOTE Chief Complaint Chief Complaint S/P Exp. 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 parapsilosis & PSAE (I-merrem/ceftazidime/AZT/cefepime)) Leucocytosis -stable [id number] last night Acute gallstone pancreatitis with persistent necrosis Acute hypoxic Respiratory failure required mechanical ventilation Tracheostomy Thursday. bilateral pleural effusions/pulm edema s/p Throacentesis on 10/03/2019 Severe Acute gallstone pancreatitis (not a surgical candidate at this time) with necrosis Acute kidney failure now requiring dialysis Gallstones (Calculus of gallbladder with acute cholecystitis without obstruction) HTN Intractable pain Intractable nausea Covid 19 negative. Acute on chronic anemia EEG: No seizure activity Fever - intermittent ? Ileus with vomiting Abd distention - U/S and CT reviewed s/p 0.4 L of opaque, debris-containing ascites was removed 08/23 Acute pancreatitis with persistent necrosis Gallstone pancreatitis with necrosis. -CT A/P 09/23 showed multiple pseudocysts, slight larger on the right. s/p drains x , 09/24. + PSAE (MDRO-R Cefepime, Zosyn ALEXANDRA < 64) and yeast, -s/p drain 08/14. C. parapsilosis. s/p drain 08/23 + yeast & high amylase; s/p additional drain on 08/25. Drains removed. Ascites s/p paracentesis 08/02 & 08/23. C. parapsilosis JUANA. off HD. A large fluid collection in the pancreatic bed has slightly decreased in size, described below, the pancreas itself is difficult to visualize, which could be due to necrosis or obscuration of pancreatic parenchyma from the surrounding fluid collection.10/02 - 08/14 status post KAYLIN drain placement + C paropsilosis. s/p additional drains 08/25 Anemia - S/p PRBCs. Cholelithiasis with thickening of the gallbladder wall. Leucocytosis improving JUANA, hyperkalemia, Metabolic acidosis off dialysis hypocalcemia Prediabetes HTN s/p trach Hyperglycemia severe protein-caloric malnutrition Moderate to large left pleural effusion with atelectasis and collapse of most of the left lower lobe, stable Extensive retroperitoneal fluid collections persist. Percutaneous drains remain within the collections in both paracolic gutters. These communicate with additional pelvic and peripancreatic collections. PLAN Repeat hemoglobin in the afternoon Type and cross for 1 unit PRBC per ID recommendations, continue Avycaz, micafungin, daptomycin. Nystatin to the groin Negative C diff BC from 11/01 neg to date 11/12 PICC line removed will start PPN for 24 hours then replace PICC line other side Follow surgery input regarding diet and drains, pending GJ tube placement with IR before restarting tube feeds. DVT GI prophylaxis f/u BC /resp cultures continue DVT/GI PPX Discussed with RN 45 MIN CC TIME History of Present Illness History of Present Illness No overnight events. Calcium 10.7 on AM labs. She is still a bit slow to to respond, but follows commands well. Does not want speaking valve with me. Pain is better controlled in her abdomen. Wound care to see today. Will check liver function and phos levels given her calcium elevation. 11/20/2019 Patient seen and examined bedside. Positive fluid balance in the past 24 hours. Patient's chart, labs, images were reviewed and discussed with RN 11/19/2019 No acute events overnight. Seen and examined at bedside. Patient had a fever 100.2. Negative fluid balance of 150 cc. Patient's chart, labs, images were reviewed and discussed with RN 11/18/2019 Patient seen and examined at bedside. No acute events overnight. Positive fluid balance 633. Patient's chart, labs, images were reviewed and discussed with RN 11/17/2019 Patient seen and examined bedside. No acute events overnight. Patient's chart, labs, images were reviewed and discussed with RN 11/15/2019 Patient seen and examined bedside. Patient appears to be in no obvious pain. All drains have been adequately draining. Patient continues to be on TPN. Chart labs and imaging was reviewed. Negative fluid balance of 270 cc 11/14/2019 Patient seen and examined in the ICU. Patient still requires extensive care. 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 Chart, labs, imaging was reviewed. UOP with + 500cc balance. 11/11 Patient seen in and examined in the ICU She is still extremely critically ill Appears weak, frail, and pale Better color today with improved eye contact and expression Discussed with RN Chart reviewed 11/08/2019 Patient seen and examined in the ICU She is still extremely critically ill Appears extremely weak frail and pale Discussed with RN Chart reviewed Vitals/I&O Vitals/I&O: Vital Signs Date Time Temp Pulse Resp B/P (MAP) Pulse Ox O2 Delivery O2 Flow Rate FiO2 11/21/19 08:25 95 Room Air 11/21/19 08:24 30 11/21/19 05:30 124 154/65 (94) 11/21/19 03:00 99.3 99.3 I & O 11/20/19 11/20/19 11/21/19 15:00 23:00 07:00 Intake Total 650 ml 1305 ml 680 ml Output Total 350 ml 500 ml 450 ml Balance 300 ml 805 ml 230 ml Physical Exam Physical Exam: GENERAL: pt in bed, appears weak -comfortable -alert HEENT: Pupils equal, oral cavity dry. OC/Op - Dry NECK: Tracheostomy - no JVD LUNGS: Diminished aeration bases, CT on left HEART: S1, S2, ABDOMEN: Less Distended mild- bowel sounds hypoactive, soft, goyal x 2, KAYLIN drains, G-J tube. Some drainage around R quad tube again and mild insertion site irritation : Lind in place EXTREMITIES: Trace generalized edema, no cyanosis. Yeast in groin area SKIN: warm touch. No signs of rash. LUE- Previous PICC site without signs of complications. PIV s clean NEURO: - Alert and responsive PICC RUE - clean General: Cooperative, No acute distress Heart: Other (distant heart sounds, tachycardic) Lungs: Crackles Abdomen: Soft, Other (old drain site with drainage) Extremities: Other (Diffuse edema) Skin: No rashes, No significant lesion Labs Labs: Laboratory Tests Test 11/20/19 14:00 11/20/19 17:23 11/20/19 23:34 11/21/19 05:25 White Blood Count 13.9 x10^3/uL (4.0-11.0) 14.0 x10^3/uL (4.0-11.0) Red Blood Count 2.66 x10^6/uL (3.50-5.40) 2.73 x10^6/uL (3.50-5.40) Hemoglobin 7.4 g/dL (12.0-15.5) 7.4 g/dL (12.0-15.5) Hematocrit 23.0 % (36.0-47.0) 23.5 % (36.0-47.0) Mean Corpuscular Volume 87 fL (79-100) 86 fL (79-100) Mean Corpuscular Hemoglobin 28 pg (25-35) 27 pg (25-35) Mean Corpuscular Hemoglobin Concent 32 g/dL (31-37) 32 g/dL (31-37) Red Cell Distribution Width 17.7 % (11.5-14.5) 17.8 % (11.5-14.5) Platelet Count 621 x10^3/uL (140-400) 577 x10^3/uL (140-400) Glucose (Fingerstick) 133 mg/dL (70-99) 120 mg/dL (70-99) Neutrophils (%) (Auto) 81 % (31-73) Lymphocytes (%) (Auto) 10 % (24-48) Monocytes (%) (Auto) 7 % (0-9) Eosinophils (%) (Auto) 2 % (0-3) Basophils (%) (Auto) 0 % (0-3) Neutrophils # (Auto) 11.3 x10^3/uL (1.8-7.7) Lymphocytes # (Auto) 1.4 x10^3/uL (1.0-4.8) Monocytes # (Auto) 1.0 x10^3/uL (0.0-1.1) Eosinophils # (Auto) 0.3 x10^3/uL (0.0-0.7) Basophils # (Auto) 0.0 x10^3/uL (0.0-0.2) Sodium Level 136 mmol/L (136-145) Potassium Level 4.2 mmol/L (3.5-5.1) Chloride Level 102 mmol/L (98-107) Carbon Dioxide Level 27 mmol/L (21-32) Anion Gap 7 (6-14) Blood Urea Nitrogen 8 mg/dL (7-20) Creatinine 0.7 mg/dL (0.6-1.0) Estimated GFR (Cockcroft-Gault) 88.9 Glucose Level 140 mg/dL (70-99) Calcium Level 10.7 mg/dL (8.5-10.1) Test 11/21/19 06:02 Glucose (Fingerstick) 143 mg/dL (70-99) Assessment and Plan Assessmemt and Plan Problems Medical Problems: (1) Acute pancreatitis Status: Acute (2) Cholelithiasis Status: Acute Comment Review of Relevant I have reviewed the following items kolby (where applicable) has been applied. Justicifation of Admission Dx: Justifications for Admission: Justification of Admission Dx: Yes DAVIN LANDEROS MD Nov 21, 2019 09:30
[2019-11-21] MEDS: DAPTOmycin (GENERIC) IVPB 500 MG in IV NORMAL SALINE 50ML 50 ML IV SCH (09:52)
--- NOTE | 2019-11-21 10:08 | PDOC ---
PULMONARY PROGRESS NOTES Subjective Resting comfortable on trach W/ room air no complaints, no overnight concerns from nursing Vitals Vital Signs Date Time Temp Pulse Resp B/P (MAP) Pulse Ox O2 Delivery O2 Flow Rate FiO2 11/21/19 09:39 99 Room Air 11/21/19 08:24 30 11/21/19 05:30 124 154/65 (94) 11/21/19 03:00 99.3 99.3 ROS: No Nausea, No Chest Pain, No Abdominal Pain, No Increase Cough General: Alert HEENT: Other (trach site CDI) Lungs: Clear Cardiovascular: S1, S2 Abdomen: Soft, Non-tender, Other (multiple KAYLIN drains ) Neuro Exam: Alert Extremities: Other (+1 BLE edema) Skin: Warm Labs Laboratory Tests Test 11/19/19 11:48 11/19/19 18:08 11/19/19 23:58 11/20/19 05:40 Glucose (Fingerstick) 147 mg/dL (70-99) 142 mg/dL (70-99) 135 mg/dL (70-99) White Blood Count 13.6 x10^3/uL (4.0-11.0) Red Blood Count 2.50 x10^6/uL (3.50-5.40) Hemoglobin 6.9 g/dL (12.0-15.5) Hematocrit 21.8 % (36.0-47.0) Mean Corpuscular Volume 87 fL (79-100) Mean Corpuscular Hemoglobin 28 pg (25-35) Mean Corpuscular Hemoglobin Concent 32 g/dL (31-37) Red Cell Distribution Width 17.4 % (11.5-14.5) Platelet Count 608 x10^3/uL (140-400) Neutrophils (%) (Auto) 80 % (31-73) Lymphocytes (%) (Auto) 11 % (24-48) Monocytes (%) (Auto) 7 % (0-9) Eosinophils (%) (Auto) 2 % (0-3) Basophils (%) (Auto) 0 % (0-3) Neutrophils # (Auto) 10.9 x10^3/uL (1.8-7.7) Lymphocytes # (Auto) 1.5 x10^3/uL (1.0-4.8) Monocytes # (Auto) 0.9 x10^3/uL (0.0-1.1) Eosinophils # (Auto) 0.2 x10^3/uL (0.0-0.7) Basophils # (Auto) 0.1 x10^3/uL (0.0-0.2) Sodium Level 129 mmol/L (136-145) Potassium Level 4.9 mmol/L (3.5-5.1) Chloride Level 100 mmol/L (98-107) Carbon Dioxide Level 26 mmol/L (21-32) Anion Gap 3 (6-14) Blood Urea Nitrogen 8 mg/dL (7-20) Creatinine 0.5 mg/dL (0.6-1.0) Estimated GFR (Cockcroft-Gault) 131.1 Glucose Level 134 mg/dL (70-99) Calcium Level 9.9 mg/dL (8.5-10.1) Test 11/20/19 05:42 11/20/19 14:00 11/20/19 17:23 11/20/19 23:34 Glucose (Fingerstick) 147 mg/dL (70-99) 133 mg/dL (70-99) 120 mg/dL (70-99) White Blood Count 13.9 x10^3/uL (4.0-11.0) Red Blood Count 2.66 x10^6/uL (3.50-5.40) Hemoglobin 7.4 g/dL (12.0-15.5) Hematocrit 23.0 % (36.0-47.0) Mean Corpuscular Volume 87 fL (79-100) Mean Corpuscular Hemoglobin 28 pg (25-35) Mean Corpuscular Hemoglobin Concent 32 g/dL (31-37) Red Cell Distribution Width 17.7 % (11.5-14.5) Platelet Count 621 x10^3/uL (140-400) Test 11/21/19 05:25 11/21/19 06:02 White Blood Count 14.0 x10^3/uL (4.0-11.0) Red Blood Count 2.73 x10^6/uL (3.50-5.40) Hemoglobin 7.4 g/dL (12.0-15.5) Hematocrit 23.5 % (36.0-47.0) Mean Corpuscular Volume 86 fL (79-100) Mean Corpuscular Hemoglobin 27 pg (25-35) Mean Corpuscular Hemoglobin Concent 32 g/dL (31-37) Red Cell Distribution Width 17.8 % (11.5-14.5) Platelet Count 577 x10^3/uL (140-400) Neutrophils (%) (Auto) 81 % (31-73) Lymphocytes (%) (Auto) 10 % (24-48) Monocytes (%) (Auto) 7 % (0-9) Eosinophils (%) (Auto) 2 % (0-3) Basophils (%) (Auto) 0 % (0-3) Neutrophils # (Auto) 11.3 x10^3/uL (1.8-7.7) Lymphocytes # (Auto) 1.4 x10^3/uL (1.0-4.8) Monocytes # (Auto) 1.0 x10^3/uL (0.0-1.1) Eosinophils # (Auto) 0.3 x10^3/uL (0.0-0.7) Basophils # (Auto) 0.0 x10^3/uL (0.0-0.2) Sodium Level 136 mmol/L (136-145) Potassium Level 4.2 mmol/L (3.5-5.1) Chloride Level 102 mmol/L (98-107) Carbon Dioxide Level 27 mmol/L (21-32) Anion Gap 7 (6-14) Blood Urea Nitrogen 8 mg/dL (7-20) Creatinine 0.7 mg/dL (0.6-1.0) Estimated GFR (Cockcroft-Gault) 88.9 Glucose Level 140 mg/dL (70-99) Calcium Level 10.7 mg/dL (8.5-10.1) Glucose (Fingerstick) 143 mg/dL (70-99) Laboratory Tests Test 11/20/19 14:00 11/20/19 17:23 11/20/19 23:34 11/21/19 05:25 White Blood Count 13.9 x10^3/uL (4.0-11.0) 14.0 x10^3/uL (4.0-11.0) Red Blood Count 2.66 x10^6/uL (3.50-5.40) 2.73 x10^6/uL (3.50-5.40) Hemoglobin 7.4 g/dL (12.0-15.5) 7.4 g/dL (12.0-15.5) Hematocrit 23.0 % (36.0-47.0) 23.5 % (36.0-47.0) Mean Corpuscular Volume 87 fL (79-100) 86 fL (79-100) Mean Corpuscular Hemoglobin 28 pg (25-35) 27 pg (25-35) Mean Corpuscular Hemoglobin Concent 32 g/dL (31-37) 32 g/dL (31-37) Red Cell Distribution Width 17.7 % (11.5-14.5) 17.8 % (11.5-14.5) Platelet Count 621 x10^3/uL (140-400) 577 x10^3/uL (140-400) Glucose (Fingerstick) 133 mg/dL (70-99) 120 mg/dL (70-99) Neutrophils (%) (Auto) 81 % (31-73) Lymphocytes (%) (Auto) 10 % (24-48) Monocytes (%) (Auto) 7 % (0-9) Eosinophils (%) (Auto) 2 % (0-3) Basophils (%) (Auto) 0 % (0-3) Neutrophils # (Auto) 11.3 x10^3/uL (1.8-7.7) Lymphocytes # (Auto) 1.4 x10^3/uL (1.0-4.8) Monocytes # (Auto) 1.0 x10^3/uL (0.0-1.1) Eosinophils # (Auto) 0.3 x10^3/uL (0.0-0.7) Basophils # (Auto) 0.0 x10^3/uL (0.0-0.2) Sodium Level 136 mmol/L (136-145) Potassium Level 4.2 mmol/L (3.5-5.1) Chloride Level 102 mmol/L (98-107) Carbon Dioxide Level 27 mmol/L (21-32) Anion Gap 7 (6-14) Blood Urea Nitrogen 8 mg/dL (7-20) Creatinine 0.7 mg/dL (0.6-1.0) Estimated GFR (Cockcroft-Gault) 88.9 Glucose Level 140 mg/dL (70-99) Calcium Level 10.7 mg/dL (8.5-10.1) Test 11/21/19 06:02 Glucose (Fingerstick) 143 mg/dL (70-99) Medications Active Scripts Medications Dose Route/Sig Max Daily Dose Days Date Category Bisoprolol Fumarate 5 Mg Tablet 10 Mg PO DAILY 07/04/[address] reviewed 10/30/19, Decreased left-sided effusion after catheter placement. The right-sided effusion has increased as has atelectasis. There has been exchange or placement of multiple drainage tubes and a gastrojejunostomy tube. Both collections are smaller. No significant new abdominal fluid collection is seen. The jejunal component of the gastrojejunostomy tube appears to be looped in the proximal small bowel. ct abdomen /pelvis 09/23 1. Removal of the percutaneous pigtail drainage catheters since the prior exam. Sequela of pancreatitis with extensive pseudocysts again demonstrated, the right-sided collections are slightly larger since the prior exam, the left-sided collections are stable. See above. 2. Moderate to large left pleural effusion with atelectasis and collapse of most of the left lower lobe, stable. Small right pleural effusion is stable. 3. Gallstone. ct chest 10/02 reviewed GRAM NEG COCCOBACILLI:MANY SQUAMOUS EPI CELL:RARE PMN (WBCs):FEW Unless otherwise specified, Testing Performed by: [address] [address] For Inquires, the Physician may contact the Microbiology department at [phone] RESPIRATORY CULTURE Final Final MANY GRAM NEGATIVE RODS on 10/03/19 at 1107 FINAL ID= [[email or web address]] MICRO CHARGES PSEUDOMONAS AERUGINOSA ANTIMICROBIAL SUSCEPTIBILITY Final Comment NEG ALEXANDRA 56 PSEUDOMONAS AERUGINOSA ANTIBIOTIC RESULT INTERPRETATION AMIKACIN <=16 S AZTREONAM <=4 S CEFTAZIDIME <=1 S CIPROFLOXACIN <=0.25 S CEFEPIME <=2 S CEFTAZIDIME/AVIBACTAM <=4 S GENTAMICIN <=2 S LEVOFLOXACIN <=0.5 S Impression . IMPRESSION: 1. Acute hypoxemic respiratory failure secondary to ARDS status post trach, developed anemia 09/24, blood drainage from RLQ abdomen drain site, and surrounding firmness / developed septic shock 09/24 from abdomen source, required levo /-- now on room air with trach s/p 3 new drains 6/7 with brown color drainage, --- off pressors S/P Exp. 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 parapsilosis & PSAE (I-merrem/ceftazidime/AZT/cefepime)) Leucocytosis -improved Fever---resolved Acute gallstone pancreatitis with persistent necrosis - 07/27. CT A/P Increased ascites. 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 status post KAYLIN drain placement; C. parapsilosis. s/p drain 08/23 + yeast & high amylase; s/p additional drain on 08/25. Drains removed. -08/23. fluid devyn parapsilosis fluid, amylase high - 09/23 showed multiple pseudocysts, slight larger on the right. s/p drains x 3, 09/24. + PSAE (MDRO-R Cefepime, Zosyn ALEXANDRA < 64) and yeast, -09/24 s/p drain replacement x 3; fluid cult PSAE (MDRO), yeast; treated -10/29 CT A/P shows smaller fluid collections. -722 CT abdomen and pelvis drains in place Ascites s/p paracentesis 08/02 & 08/23. C. parapsilosis Cholelithiasis with thickening of the gallbladder wall. JUANA, Hyperkalemia, Metabolic acidosis off dialysis Acute hypoxic resp failure. trach/vent. sputum 09/30 + PSAE (I merrem) ; sputum culture November 05+ for PSAE R Merrem, sensitive to cefepime Pleural effusion status post CTS left side Abdominal fluid culture MDRO Pseudomonas, yeast Sputum culture positive 11/05 for MDRO Pseudomonas Chest tube fluid positive for 11/07 Devyn Parapsilosis S/P Exploratory laparotomy, lysis of adhesions, subtotal cholecystectomy with cholangiogram, gastrojejunostomy tube placement, pancreatic necrosectomy Plan . Stable from pulmonary stand point chest tube REMOVED 11/10 Transfuse as needed, monitor HGB Antibiotics per ID Trach shield, as tolerated, on room air-- attempt PMV/Capped Up to chair, PT/OT Follow surgery input DVT GI prophylaxis f/u BC /resp cultures DVT/GI PPX stable from pulmonary standpoint we will sign off, please call with any future concerns thank you may transfer out of ICU from our stand point VINAYAK LANDRUM MD Nov 21, 2019 10:08
--- NOTE | 2019-11-21 10:55 | PDOC ---
Objective: Objective: D/w nurse - stable GI-mcmillan. Drainage from previous drain site - wound care to see. Vital Signs: Vital Signs Date Time Temp Pulse Resp B/P (MAP) Pulse Ox O2 Delivery O2 Flow Rate FiO2 11/21/19 09:39 99 Room Air 11/21/19 08:24 30 11/21/19 07:00 98.8 114 111/55 (73) 98.8 Labs: Laboratory Tests Test 11/20/19 14:00 11/20/19 17:23 11/20/19 23:34 11/21/19 05:25 White Blood Count 13.9 x10^3/uL 14.0 x10^3/uL Red Blood Count 2.66 x10^6/uL 2.73 x10^6/uL Hemoglobin 7.4 g/dL 7.4 g/dL Hematocrit 23.0 % 23.5 % Mean Corpuscular Volume 87 fL 86 fL Mean Corpuscular Hemoglobin 28 pg 27 pg Mean Corpuscular Hemoglobin Concent 32 g/dL 32 g/dL Red Cell Distribution Width 17.7 % 17.8 % Platelet Count 621 x10^3/uL 577 x10^3/uL Glucose (Fingerstick) 133 mg/dL 120 mg/dL Neutrophils (%) (Auto) 81 % Lymphocytes (%) (Auto) 10 % Monocytes (%) (Auto) 7 % Eosinophils (%) (Auto) 2 % Basophils (%) (Auto) 0 % Neutrophils # (Auto) 11.3 x10^3/uL Lymphocytes # (Auto) 1.4 x10^3/uL Monocytes # (Auto) 1.0 x10^3/uL Eosinophils # (Auto) 0.3 x10^3/uL Basophils # (Auto) 0.0 x10^3/uL Sodium Level 136 mmol/L Potassium Level 4.2 mmol/L Chloride Level 102 mmol/L Carbon Dioxide Level 27 mmol/L Anion Gap 7 Blood Urea Nitrogen 8 mg/dL Creatinine 0.7 mg/dL Estimated GFR (Cockcroft-Gault) 88.9 Glucose Level 140 mg/dL Calcium Level 10.7 mg/dL Test 11/21/19 06:02 Glucose (Fingerstick) 143 mg/dL PE: GEN: chronically ill LUNGS: RT present suctioning when I saw HEART: tachycardic ABD: drains NEURO/PSYCH: awake A/P: S/p pancreatic necrosectomy, complications -- Continue support. Justicifation of Admission Dx: Justifications for Admission: Justification of Admission Dx: Yes CYNDEE FALCON Nov 21, 2019 10:55
[2019-11-21] MEDS: ALPRAZolam 0.5 MG TABLET PO PRN ×2 (12:18→23:16)
--- NOTE | 2019-11-21 12:45 | NUR ---
SS following up with discharge planning. SS reviewed pt chart and discussed with pt RN. All drains pulled except for GJ tube. Pt currently on tube feeds. Pt on room air. Wound vac removed. Pt has ostomy bags on drainage sites. Pt currently wearing speaking valve intermittently. Pt on IV Daptomycin, IV Micafungin, and IV Avycaz. Pt max assist for PT/OT and staff. PT/OT recommending LTACH. Pt self pay. Med Assist attempting to work with pt's family to complete disability application. SS will continue to follow for discharge planning.
[2019-11-21 12:47] LABS: ALBUMIN 1.4 g/dL (3.4-5.0); DIRECT BILIRUBIN 0.2 mg/dL (0.0-0.2); TOTAL BILIRUBIN 0.3 mg/dL (0.2-1.0); TOTAL PROTEIN 4.8 g/dL (6.4-8.2)
[2019-11-21] MEDS: METOPROLOL TARTRATE 5 MG/5 ML VIAL. IVP PRN (15:05)
[2019-11-21] MEDS ORDERED: IV NORMAL SALINE 1000ML BAG 1,000 ML IV ONE (20:30)
[2019-11-21] MEDS ORDERED: IV NORMAL SALINE 1000ML BAG 1,000 ML IV SCH (23:21)
[2019-11-22 03:00] VITALS: BP 112/66
[2019-11-22] MEDS: IPRATRPIUM/ALBUTEROL 0.5/2.5MG 3 ML NEBU. NEB SCH ×6 (03:14→23:20)
[2019-11-22] MEDS: ONDANSETRON PF 4 MG/2 ML VIAL. IV PRN ×2 (04:30→16:31)
[2019-11-22] MEDS: CEFTAZIDIME/AVIBACTAM 2.5 GM in IV NORMAL SALINE 250ML 250 ML IV SCH ×3 (06:00→20:49)
[2019-11-22] MEDS: INSULIN LISPRO 300 UNITS/3 ML VIAL. SQ SCH ×3 (06:00→18:00)
--- NOTE | 2019-11-22 06:14 | NUR ---
Pharmacy messaged for Avycaz--pharmacy called back to notify that Avycaz is currently out but they will be getting more this morning. Avycaz left on eMAR for day shift RN to give when it comes back in stock.
[2019-11-22 07:42] VITALS: BP 133/76
--- NOTE | 2019-11-22 08:22 | PDOC ---
Infectious Disease Note Subjective Subjective awake, says feeling ok, trach ROS ROS no n/v/d/sob Vital Sign Vital Signs Vital Signs Date Time Temp Pulse Resp B/P (MAP) Pulse Ox O2 Delivery O2 Flow Rate FiO2 11/22/19 07:42 98.9 120 30 133/76 (95) 95 Room Air 98.9 Physical Exam PHYSICAL EXAM GENERAL: pt in bed, appears weak -comfortable -alert HEENT: Pupils equal, oral cavity dry. OC/Op - Dry NECK: Tracheostomy - no JVD LUNGS: Diminished aeration bases, CT on left HEART: S1, S2, ABDOMEN: Less Distended mild- bowel sounds hypoactive, soft, goyal x 2, KAYLIN drains, G-J tube. Some drainage around R quad tube again and mild insertion site irritation : Lind in place EXTREMITIES: Trace generalized edema, no cyanosis. Yeast in groin area SKIN: warm touch. No signs of rash. LUE- Previous PICC site without signs of complications. PIV s clean NEURO: - Alert and responsive PICC RUE - clean Labs Lab Laboratory Tests Test 11/21/19 12:07 11/21/19 18:03 11/21/19 23:18 11/22/19 06:08 Glucose (Fingerstick) 113 mg/dL (70-99) 131 mg/dL (70-99) 107 mg/dL (70-99) 130 mg/dL (70-99) Micro BC neg Objective Assessment Patient with prolonged hospitalization more than 4 months Multiple medical problems Multiple surgical procedures URINE with parapsilosis S/P Exp. 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 parapsilosis & PSAE (I-merrem/ceftazidime/AZT/cefepime)) Leukocytosis - better Loose stool but on tube feed - WBC down and no gross fever Fever - 11/11 c-diff neg Anemia Acute gallstone pancreatitis with persistent necrosis - 07/27. CT A/P Increased ascites. 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 status post KAYLIN drain placement; C. parapsilosis. s/p drain 08/23 + yeast & high amylase; s/p additional drain on 08/25. Drains removed. -08/23. fluid devyn parapsilosis fluid, amylase high - 09/23 showed multiple pseudocysts, slight larger on the right. s/p drains x 3, 09/24. + PSAE (MDRO-R Cefepime, Zosyn ALEXANDRA < 64) and yeast, -09/24 s/p drain replacement x 3; fluid cult PSAE (MDRO), yeast; treated -10/29 CT A/P shows smaller fluid collections. -722 CT abdomen and pelvis drains in place Ascites s/p paracentesis 08/02 & 08/23. C. parapsilosis Cholelithiasis with thickening of the gallbladder wall. JUANA, Hyperkalemia, Metabolic acidosis off dialysis Acute hypoxic resp failure. trach/vent. sputum 09/30 + PSAE (I merrem) ; sputum culture November 05+ for PSAE R Merrem, sensitive to cefepime Pleural effusion status post CTS left side Abdominal fluid culture MDRO Pseudomonas, yeast Sputum culture positive 11/05 for MDRO Pseudomonas Chest tube fluid positive for 11/07 Devyn Parapsilosis EC fistula Plan Plan of Care Anemia per primary Electrolyes per primary Lind changed 11/13 Continue Avycaz 11/09 /micafungin 10/17 Restart daptomycin 11/12(CK <7 11/14) wean soon CBC/BMP in am Nystatin to groin UA and urine culture Blood culture/Cath tip neg - neg C. difficile negative Monitor WBC/temp Wound care /drain management as directed Contact isolation for CRE/MDRO Critically ill longterm prognosis poor D/w nursing KIMMY JONES MD Nov 22, 2019 08:22
[2019-11-22] MEDS: ACETYLCYSTEINE 20% for RESP TX 600 MG/3 ML. NEB SCH ×2 (08:40→20:40)
[2019-11-22] MEDS: fentaNYL PF VIAL 100 MCG/2 ML VIAL IVP PRN ×2 (09:02→15:09)
[2019-11-22] MEDS: DAPTOmycin (GENERIC) IVPB 500 MG in IV NORMAL SALINE 50ML 50 ML IV SCH (09:20)
[2019-11-22] MEDS: PANTOPRAZOLE IV PUSH 40 MG VIAL. IVP SCH (09:20)
--- NOTE | 2019-11-22 09:20 | NUR ---
Wound/Ostomy Care Wound Type/Assessment: Pt has multiple draining areas on abdomen, from previous drain sites, RUQ fistula tract draining a moderate amount of effluent. Pt is having some initial skin breakdown from the drainage, WC was asked to evaluate. Pt would benefit from a wound drainage collection device that would cover all 3 openings along the R abdomen. Pt's skin cleaned with water and washcloths and patted dry. Stoma powder applied to reddened, irritated skin and excess brushed off, then skin prep pads "dabbed" over same areas and allowed to dry. Wound collection bag cut to fit over the 3 separate openings, stoma ring applied to edge of fistula (R middle abdomen) then collection bag applied, hydrocolloid strips placed around edges to prevent lifting. Pouch showing strong seal, REY Duarte at bedside observing, photo taken of procedure for next application. LUQ ostomy bag intact, placed yesterday, will continue to evaluate for any leakage. No other wounds noted, but pt does have some chaffing and irritation to inner thighs d/t rubbing and loose stools, recommended Vitamin A&D ointment to these and kwame/buttock areas, Felicia v/u. Treatment Recommendations/Plan: Stoma powder and skin prep to skin breakdown around fistula/drain sites. Wound collection bag to fistulas/previous drain sites, may connect spout to Lind bag if drainage continues at moderate level. Vitamin A&D to thighs and kwame areas. Education provided: to RN re: skin care and dressings. Offloading surface/device: N/A Recommended Referrals/Tests: N/A Discharge Recommendations for dressings: See assessment and treatment plan.
[2019-11-22] MEDS: ENOXAPARIN 40 MG/0.4 ML SYRINGE. SQ SCH (09:21)
[2019-11-22] MEDS: MICAFUNGIN 100 MG in IV DEXTROSE 5% 100ML 100 ML IV SCH (09:30)
--- NOTE | 2019-11-22 10:10 | PDOC ---
Date of Service: DATE: 11/22/19 TIME: 10:09 Objective: Objective: D/w nurse - wound care to see, no change from GI standpoint. Vital Signs: Vital Signs Date Time Temp Pulse Resp B/P (MAP) Pulse Ox O2 Delivery O2 Flow Rate FiO2 11/22/19 09:02 26 95 2.0 11/22/19 08:34 Room Air 11/22/19 07:42 98.9 120 133/76 (95) 98.9 Labs: Laboratory Tests Test 11/21/19 12:07 11/21/19 18:03 11/21/19 23:18 11/22/19 06:08 Glucose (Fingerstick) 113 mg/dL (70-99) 131 mg/dL (70-99) 107 mg/dL (70-99) 130 mg/dL (70-99) PE: GEN: chronically ill - RT present suctioning NEURO/PSYCH: awake and alert A/P: S/p pancreatic necrosectomy, complications -- Supportive care. Justicifation of Admission Dx: Justifications for Admission: Justification of Admission Dx: Yes CYNDEE FALCON Nov 22, 2019 10:10
--- NOTE | 2019-11-22 10:47 | NUR ---
SS following up with discharge planning. SS reviewed pt chart and discussed with pt RN. All drains pulled except for GJ tube. Pt currently on tube feeds. Pt on room air. Pt has ostomy bags on drainage sites. Pt currently wearing speaking valve intermittently. Pt on IV Daptomycin, IV Micafungin, and IV Avycaz. Pt max assist for PT/OT and staff. PT/OT recommending LTACH. Pt self pay. Med Assist attempting to work with pt's family to complete disability application. Pt transferring to room 254 today. SS will continue to follow for discharge planning
--- NOTE | 2019-11-22 11:50 | NUR ---
Recvd patient transfer to [address] [place] [address]. Patient transported by PT/OT in wheelchair and placed in recliner. Patient oriented to room with unit routines and call light within reach. After receiving bedside report, attempted to flush tube feed and connect to pump however, tube presented to be clogged. Several attempts to flush and draw back for residual were unsuccessful. CASE SEALER for general surgery arrived at bedside who ordered vascular lab to unclogged or replace tube.
[2019-11-22 11:56] VITALS: BP 126/83
--- NOTE | 2019-11-22 12:47 | PDOC ---
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 HEATING UNIT INSTALLER 11/22/19 1247: SURGICAL PROGRESS NOTE DATE: 11/22/19 TIME: 12:46 Subjective j tube not flushing Vital Signs Vital Signs Date Time Temp Pulse Resp B/P (MAP) Pulse Ox O2 Delivery O2 Flow Rate FiO2 11/22/19 12:02 95 Room Air 11/22/19 11:56 97.8 121 22 126/83 (97) 97.8 11/22/19 09:32 2.0 I&O Intake and Output 11/22/19 07:00 Intake Total 5977 ml Output Total 2355 ml Balance 3622 ml IV Total 1914 ml Tube Feeding 3013 ml Other 1050 ml Output Urine Total 1075 ml Drainage Total 1280 ml # Bowel Movements 4 General: Alert, Cooperative Abdomen: Soft Labs Laboratory Tests Test 11/20/19 14:00 11/20/19 17:23 11/20/19 23:34 11/21/19 05:25 White Blood Count 13.9 x10^3/uL (4.0-11.0) 14.0 x10^3/uL (4.0-11.0) Red Blood Count 2.66 x10^6/uL (3.50-5.40) 2.73 x10^6/uL (3.50-5.40) Hemoglobin 7.4 g/dL (12.0-15.5) 7.4 g/dL (12.0-15.5) Hematocrit 23.0 % (36.0-47.0) 23.5 % (36.0-47.0) Mean Corpuscular Volume 87 fL (79-100) 86 fL (79-100) Mean Corpuscular Hemoglobin 28 pg (25-35) 27 pg (25-35) Mean Corpuscular Hemoglobin Concent 32 g/dL (31-37) 32 g/dL (31-37) Red Cell Distribution Width 17.7 % (11.5-14.5) 17.8 % (11.5-14.5) Platelet Count 621 x10^3/uL (140-400) 577 x10^3/uL (140-400) Glucose (Fingerstick) 133 mg/dL (70-99) 120 mg/dL (70-99) Neutrophils (%) (Auto) 81 % (31-73) Lymphocytes (%) (Auto) 10 % (24-48) Monocytes (%) (Auto) 7 % (0-9) Eosinophils (%) (Auto) 2 % (0-3) Basophils (%) (Auto) 0 % (0-3) Neutrophils # (Auto) 11.3 x10^3/uL (1.8-7.7) Lymphocytes # (Auto) 1.4 x10^3/uL (1.0-4.8) Monocytes # (Auto) 1.0 x10^3/uL (0.0-1.1) Eosinophils # (Auto) 0.3 x10^3/uL (0.0-0.7) Basophils # (Auto) 0.0 x10^3/uL (0.0-0.2) Sodium Level 136 mmol/L (136-145) Potassium Level 4.2 mmol/L (3.5-5.1) Chloride Level 102 mmol/L (98-107) Carbon Dioxide Level 27 mmol/L (21-32) Anion Gap 7 (6-14) Blood Urea Nitrogen 8 mg/dL (7-20) Creatinine 0.7 mg/dL (0.6-1.0) Estimated GFR (Cockcroft-Gault) 88.9 Glucose Level 140 mg/dL (70-99) Calcium Level 10.7 mg/dL (8.5-10.1) Phosphorus Level 4.0 mg/dL (2.6-4.7) Total Bilirubin 0.3 mg/dL (0.2-1.0) Direct Bilirubin 0.2 mg/dL (0.0-0.2) Aspartate Amino Transf (AST/SGOT) 23 U/L (15-37) Alanine Aminotransferase (ALT/SGPT) 14 U/L (14-59) Alkaline Phosphatase 105 U/L (46-116) Total Protein 4.8 g/dL (6.4-8.2) Albumin 1.4 g/dL (3.4-5.0) Test 11/21/19 06:02 11/21/19 12:07 11/21/19 18:03 11/21/19 23:18 Glucose (Fingerstick) 143 mg/dL (70-99) 113 mg/dL (70-99) 131 mg/dL (70-99) 107 mg/dL (70-99) Test 11/22/19 06:08 11/22/19 12:16 Glucose (Fingerstick) 130 mg/dL (70-99) 137 mg/dL (70-99) Laboratory Tests Test 11/21/19 18:03 11/21/19 23:18 11/22/19 06:08 11/22/19 12:16 Glucose (Fingerstick) 131 mg/dL (70-99) 107 mg/dL (70-99) 130 mg/dL (70-99) 137 mg/dL (70-99) Problem List Problems Medical Problems: (1) Acute pancreatitis Status: Acute (2) Cholelithiasis Status: Acute Assessment/Plan will ask IR to eval j tube--unclog, exchange if needed Justicifation of Admission Dx: Justifications for Admission: Justification of Admission Dx: Yes JOVANY HARRISON MD 11/22/19 1425: SURGICAL PROGRESS NOTE Assessment/Plan Agree with above 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 APRN Nov 22, 2019 12:47 JOVANY HARRISON MD Nov 22, 2019 14:25
[2019-11-22] MEDS ORDERED: IOHEXOL 240 MG/ML 50ML VIAL. ONE (14:18)
[2019-11-22] MEDS ORDERED: LIDOCAINE WITH 8.4% SOD BICARB 3 ML DISP.SYRIN. ONE (14:19)
[2019-11-22 14:55] VITALS: BP 107/71
[2019-11-22] MEDS ORDERED: fentaNYL PF VIAL 100 MCG/2 ML VIAL ONE (15:03)
--- NOTE | 2019-11-22 15:14 | NUR ---
Pt to IR for clogged GJ tube, new tube placed 24 fr tube by Tesfaye LEIJA. Sutured in place, pt tolerated with Fentanyl 25mcg given for comfort. SAMUEL RN
--- NOTE | 2019-11-22 15:15 | PDOC ---
[employer] PROGRESS NOTE Date of Service DOS: DATE: 11/22/19 TIME: 15:13 Chief Complaint Chief Complaint S/P Exp. 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 parapsilosis & PSAE (I-merrem/ceftazidime/AZT/cefepime)) Leucocytosis -stable [id number] last night Acute gallstone pancreatitis with persistent necrosis Acute hypoxic Respiratory failure required mechanical ventilation Tracheostomy Thursday. bilateral pleural effusions/pulm edema s/p Throacentesis on 10/03/2019 Severe Acute gallstone pancreatitis (not a surgical candidate at this time) with necrosis Acute kidney failure now requiring dialysis Gallstones (Calculus of gallbladder with acute cholecystitis without obstruction) HTN Intractable pain Intractable nausea Covid 19 negative. Acute on chronic anemia EEG: No seizure activity Fever - intermittent ? Ileus with vomiting Abd distention - U/S and CT reviewed s/p 0.4 L of opaque, debris-containing ascites was removed 08/23 Acute pancreatitis with persistent necrosis Gallstone pancreatitis with necrosis. -CT A/P 09/23 showed multiple pseudocysts, slight larger on the right. s/p drains x 3, 09/24. + PSAE (MDRO-R Cefepime, Zosyn ALEXANDRA < 64) and yeast, -s/p drain 08/14. C. parapsilosis. s/p drain 08/23 + yeast & high amylase; s/p additional drain on 08/25. Drains removed. Ascites s/p paracentesis 08/02 & 08/23. C. parapsilosis JUANA. off HD. A large fluid collection in the pancreatic bed has slightly decreased in size, described below, the pancreas itself is difficult to visualize, which could be due to necrosis or obscuration of pancreatic parenchyma from the surrounding fluid collection.10/02 - 08/14 status post KAYLIN drain placement + C paropsilosis. s/p additional drains 08/25 Anemia - S/p PRBCs. Cholelithiasis with thickening of the gallbladder wall. Leucocytosis improving JUANA, hyperkalemia, Metabolic acidosis off dialysis hypocalcemia Prediabetes HTN s/p trach Hyperglycemia severe protein-caloric malnutrition Moderate to large left pleural effusion with atelectasis and collapse of most of the left lower lobe, stable Extensive retroperitoneal fluid collections persist. Percutaneous drains remain within the collections in both paracolic gutters. These communicate with additional pelvic and peripancreatic collections. PLAN Repeat hemoglobin in the afternoon Type and cross for 1 unit PRBC per ID recommendations, continue Avycaz, micafungin, daptomycin. Nystatin to the groin Negative C diff BC from 11/01 neg to date 11/12 PICC line removed will start PPN for 24 hours then replace PICC line other side Follow surgery input regarding diet and drains, pending GJ tube placement with IR before restarting tube feeds. DVT GI prophylaxis f/u BC /resp cultures continue DVT/GI PPX Discussed with RN 45 MIN CC TIME History of Present Illness History of Present Illness Not wishing to wear her speaking valve. J tube having some difficulties. Afebrile. Jamaal bedside to aid her. transferred from ICU today 11/20: No overnight events. Calcium 10.7 on AM labs. She is still a bit slow to to respond, but follows commands well. Does not want speaking valve with me. Pain is better controlled in her abdomen. Wound care to see today. Will check liver function and phos levels given her calcium elevation. 11/20/2019 Patient seen and examined bedside. Positive fluid balance in the past 24 hours. Patient's chart, labs, images were reviewed and discussed with RN 11/19/2019 No acute events overnight. Seen and examined at bedside. Patient had a fever 100.2. Negative fluid balance of 150 cc. Patient's chart, labs, images were reviewed and discussed with RN 11/18/2019 Patient seen and examined at bedside. No acute events overnight. Positive fluid balance 633. Patient's chart, labs, images were reviewed and discussed with RN 11/17/2019 Patient seen and examined bedside. No acute events overnight. Patient's chart, labs, images were reviewed and discussed with RN 11/15/2019 Patient seen and examined bedside. Patient appears to be in no obvious pain. All drains have been adequately draining. Patient continues to be on TPN. Chart labs and imaging was reviewed. Negative fluid balance of 270 cc 11/14/2019 Patient seen and examined in the ICU. Patient still requires extensive care. 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 Chart, labs, imaging was reviewed. UOP with + 500cc balance. 11/11 Patient seen in and examined in the ICU She is still extremely critically ill Appears weak, frail, and pale Better color today with improved eye contact and expression Discussed with RN Chart reviewed 11/08/2019 Patient seen and examined in the ICU She is still extremely critically ill Appears extremely weak frail and pale Discussed with RN Chart reviewed Vitals/I&O Vitals/I&O: Vital Signs Date Time Temp Pulse Resp B/P (MAP) Pulse Ox O2 Delivery O2 Flow Rate FiO2 11/22/19 14:55 98.3 127 18 107/71 (83) 95 Room Air 98.3 11/22/19 09:32 2.0 I & O 11/21/19 11/21/19 11/22/19 15:00 23:00 07:00 Intake Total 200 ml 3018 ml 2759 ml Output Total 705 ml 575 ml 1075 ml Balance -505 ml 2443 ml 1684 ml Physical Exam Physical Exam: GENERAL: pt in bed, appears weak -comfortable -alert HEENT: Pupils equal, oral cavity dry. OC/Op - Dry NECK: Tracheostomy - no JVD LUNGS: Diminished aeration bases, CT on left HEART: S1, S2, ABDOMEN: Less Distended mild- bowel sounds hypoactive, soft, goyal x 2, KAYLIN drains, G-J tube. Some drainage around R quad tube again and mild insertion site irritation : Lind in place EXTREMITIES: Trace generalized edema, no cyanosis. Yeast in groin area SKIN: warm touch. No signs of rash. LUE- Previous PICC site without signs of complications. PIV s clean NEURO: - Alert and responsive PICC RUE - clean General: Alert, Cooperative Heart: Other (distant heart sounds, tachycardic) Lungs: Clear Abdomen: Soft Extremities: Other (Diffuse edema) Skin: No rashes, No significant lesion Labs Labs: Laboratory Tests Test 11/21/19 18:03 11/21/19 23:18 11/22/19 06:08 11/22/19 12:16 Glucose (Fingerstick) 131 mg/dL (70-99) 107 mg/dL (70-99) 130 mg/dL (70-99) 137 mg/dL (70-99) Assessment and Plan Assessmemt and Plan Problems Medical Problems: (1) Acute pancreatitis Status: Acute (2) Cholelithiasis Status: Acute Comment Review of Relevant I have reviewed the following items kolby (where applicable) has been applied. Medications: Current Medications Medications (Trade) Dose Ordered Sig/Yvon Route PRN Reason Start Time Stop Time Status Last Admin Dose Admin Sodium Chloride 1,000 ml @ 125 mls/hr Q8H IV 11/21/19 23:21 11/22/19 09:23 DC 11/21/19 23:16 Sodium Chloride 1,000 ml @ 350 mls/hr 1X ONCE IV 11/21/19 20:30 11/21/19 23:21 DC 11/21/19 20:29 Justicifation of Admission Dx: Justifications for Admission: Justification of Admission Dx: Yes DAVIN LANDEROS MD Nov 22, 2019 15:15
--- NOTE | 2019-11-22 15:31 | RAD ---
Procedure: GJ tube exchange under fluoroscopy Clinical Indication: Adult female with clogged gastrojejunostomy tube Sedation: Local anesthesia only Antibiotics: None Exposure: Kerma-Area Product: Gycm2 OR Fluoro Time: Less than 2 minutes Images: 3 Sterility: All elements of maximal sterile barrier technique including the use of a cap, mask, sterile gown, sterile gloves, large sterile sheet, appropriate hand hygiene, and 2% chlorhexidine for cutaneous antisepsis (or acceptable alternative antiseptic per current guidelines) were followed for this procedure. Consent: The procedure was explained in its entirety to the patient or the patients designated patient services representative by a member of the treatment team, including a discussion of the risks, benefits and commonly accepted alternatives to the procedure, as well as the expected consequences of no therapy whatsoever. Discussion of the risks included, but was not limited to, those that are most frequent and those that are rare but possibly severe or life-threatening, as well as the possibility of unforeseen complications. Technique and Findings: Following informed consent, the patient was prepped and draped in usual sterile fashion. The existing tube was removed over wire and a new gastrojejunostomy tube was advanced over the latter fluoroscopic guidance and positioned with the distal tip in the proximal jejunum in the gastrostomy tip in the gastric lumen. Contrast was injected through both ports confirming good location of both the jejunal and gastric tips. Sterile water was used to inflate the balloon to 10 cc in the tube was pulled taut against anterior abdominal wall. The retention disc was slid into place and the tube was sutured into position. Both ports were flushed with normal saline. Complications: No immediate Impression: 1. Gastrojejunostomy tube exchange under fluoroscopy as described. Both ports of this tube are suitable for use.
[2019-11-22] MEDS ORDERED: IOHEXOL 240 MG/ML 50ML VIAL. IJ ONE (15:45)
[2019-11-22] MEDS ORDERED: LIDOCAINE WITH 8.4% SOD BICARB 3 ML DISP.SYRIN. INJ ONE (15:45)
[2019-11-22] MEDS: METOPROLOL TARTRATE 5 MG/5 ML VIAL. IVP PRN (17:40)
[2019-11-22] MEDS: PROCHLORPERAZINE 10 MG/2 ML VIAL. IV PRN (20:44)
[2019-11-22 20:51] VITALS: BP 118/79
[2019-11-22 23:33] VITALS: BP 115/64
[2019-11-23] MEDS: IPRATRPIUM/ALBUTEROL 0.5/2.5MG 3 ML NEBU. NEB SCH ×5 (02:34→20:34)
[2019-11-23 03:00] VITALS: BP 115/61
[2019-11-23] MEDS: CEFTAZIDIME/AVIBACTAM 2.5 GM in IV NORMAL SALINE 250ML 250 ML IV SCH (05:38)
[2019-11-23] MEDS: INSULIN LISPRO 300 UNITS/3 ML VIAL. SQ SCH ×4 (06:00→18:00)
[2019-11-23 06:19] LABS: BASO % 0 % (0-3); EOS # 0.2 x10^3/uL (0.0-0.7); EOS % 3 % (0-3); LYMPH # 1.1 x10^3/uL (1.0-4.8); LYMPH % 16 % (24-48); MEAN CORPUSCULAR HEMOGLOBIN 28 pg (25-35); MEAN CORPUSCULAR HGB CONC 32 g/dL (31-37); MEAN CORPUSCULAR VOLUME 88 fL (79-100); MONO # 0.5 x10^3/uL (0.0-1.1); MONO % 8 % (0-9); NEUT # 5.1 x10^3/uL (1.8-7.7); NEUT % 73 % (31-73); PLATELET COUNT 465 x10^3/uL (140-400); RED BLOOD COUNT 2.09 x10^6/uL (3.50-5.40); RED CELL DISTRIBUTION WIDTH 18.3 % (11.5-14.5)
[2019-11-23 06:29] LABS: HEMATOCRIT 18.3 % (36.0-47.0); HEMOGLOBIN 5.9 g/dL (12.0-15.5)
[2019-11-23] MEDS ORDERED: ALTEPLASE 2MG VIAL 5 MG in IV NORMAL SALINE 50ML 30 ML IV PRN (06:45)
[2019-11-23 07:00] VITALS: BP 128/88
[2019-11-23] MEDS ORDERED: ALTEPLASE 1MG SYRINGE. INT CAT ONE (07:00)
[2019-11-23 07:27] LABS: BASO % 1 % (0-3); EOS # 0.3 x10^3/uL (0.0-0.7); EOS % 4 % (0-3); HEMATOCRIT 22.9 % (36.0-47.0); HEMOGLOBIN 7.3 g/dL (12.0-15.5); LYMPH # 1.4 x10^3/uL (1.0-4.8); LYMPH % 17 % (24-48); MEAN CORPUSCULAR HEMOGLOBIN 27 pg (25-35); MEAN CORPUSCULAR HGB CONC 32 g/dL (31-37); MEAN CORPUSCULAR VOLUME 86 fL (79-100); MONO # 0.7 x10^3/uL (0.0-1.1); MONO % 8 % (0-9); NEUT # 5.8 x10^3/uL (1.8-7.7); NEUT % 71 % (31-73); PLATELET COUNT 593 x10^3/uL (140-400); RED BLOOD COUNT 2.67 x10^6/uL (3.50-5.40); RED CELL DISTRIBUTION WIDTH 18.2 % (11.5-14.5); WHITE BLOOD COUNT 8.2 x10^3/uL (4.0-11.0)
[2019-11-23 07:33] LABS: ALBUMIN 1.3 g/dL (3.4-5.0); ALBUMIN/GLOBULIN RATIO 0.3 (1.0-1.7); CALCIUM 10.9 mg/dL (8.5-10.1); CREATININE 0.5 mg/dL (0.6-1.0); GFR 131.1; POTASSIUM 4.1 mmol/L (3.5-5.1); TOTAL BILIRUBIN 0.3 mg/dL (0.2-1.0); TOTAL PROTEIN 5.1 g/dL (6.4-8.2)
[2019-11-23] MEDS: ACETYLCYSTEINE 20% for RESP TX 600 MG/3 ML. NEB SCH ×2 (08:12→20:34)
--- NOTE | 2019-11-23 08:19 | PDOC ---
Infectious Disease Note Subjective Subjective awake, says feeling ok, trach ROS ROS no n/v/d/ Vital Sign Vital Signs Vital Signs Date Time Temp Pulse Resp B/P (MAP) Pulse Ox O2 Delivery O2 Flow Rate FiO2 11/23/19 07:00 97.7 106 18 128/88 (101) 95 Room Air 97.7 11/22/19 09:32 2.0 Physical Exam PHYSICAL EXAM GENERAL: pt in bed, appears weak -comfortable -alert HEENT: Pupils equal, oral cavity dry. OC/Op - Dry NECK: Tracheostomy - no JVD LUNGS: Diminished aeration bases, HEART: S1, S2, ABDOMEN: Less Distended mild- bowel sounds hypoactive, soft, goyal x 2, KAYLIN drains, G-J tube. Some drainage around R quad tube again and mild insertion site irritation : Lind in place EXTREMITIES: Trace generalized edema, no cyanosis. Yeast in groin area SKIN: warm touch. No signs of rash. LUE- Previous PICC site without signs of complications. PIV s clean NEURO: - Alert and responsive PICC RUE - clean EC fistula Labs Lab Laboratory Tests Test 11/22/19 12:16 11/22/19 18:27 11/22/19 23:37 11/23/19 05:51 Glucose (Fingerstick) 137 mg/dL (70-99) 111 mg/dL (70-99) 102 mg/dL (70-99) 114 mg/dL (70-99) Test 11/23/19 06:00 11/23/19 06:40 White Blood Count 7.0 x10^3/uL (4.0-11.0) 8.2 x10^3/uL (4.0-11.0) Red Blood Count 2.09 x10^6/uL (3.50-5.40) 2.67 x10^6/uL (3.50-5.40) Hemoglobin 5.9 g/dL (12.0-15.5) 7.3 g/dL (12.0-15.5) Hematocrit 18.3 % (36.0-47.0) 22.9 % (36.0-47.0) Mean Corpuscular Volume 88 fL (79-100) 86 fL (79-100) Mean Corpuscular Hemoglobin 28 pg (25-35) 27 pg (25-35) Mean Corpuscular Hemoglobin Concent 32 g/dL (31-37) 32 g/dL (31-37) Red Cell Distribution Width 18.3 % (11.5-14.5) 18.2 % (11.5-14.5) Platelet Count 465 x10^3/uL (140-400) 593 x10^3/uL (140-400) Neutrophils (%) (Auto) 73 % (31-73) 71 % (31-73) Lymphocytes (%) (Auto) 16 % (24-48) 17 % (24-48) Monocytes (%) (Auto) 8 % (0-9) 8 % (0-9) Eosinophils (%) (Auto) 3 % (0-3) 4 % (0-3) Basophils (%) (Auto) 0 % (0-3) 1 % (0-3) Neutrophils # (Auto) 5.1 x10^3/uL (1.8-7.7) 5.8 x10^3/uL (1.8-7.7) Lymphocytes # (Auto) 1.1 x10^3/uL (1.0-4.8) 1.4 x10^3/uL (1.0-4.8) Monocytes # (Auto) 0.5 x10^3/uL (0.0-1.1) 0.7 x10^3/uL (0.0-1.1) Eosinophils # (Auto) 0.2 x10^3/uL (0.0-0.7) 0.3 x10^3/uL (0.0-0.7) Basophils # (Auto) 0.0 x10^3/uL (0.0-0.2) 0.0 x10^3/uL (0.0-0.2) Sodium Level 140 mmol/L (136-145) Potassium Level 4.1 mmol/L (3.5-5.1) Chloride Level 108 mmol/L (98-107) Carbon Dioxide Level 28 mmol/L (21-32) Anion Gap 4 (6-14) Blood Urea Nitrogen 9 mg/dL (7-20) Creatinine 0.5 mg/dL (0.6-1.0) Estimated GFR (Cockcroft-Gault) 131.1 BUN/Creatinine Ratio 18 (6-20) Glucose Level 114 mg/dL (70-99) Calcium Level 10.9 mg/dL (8.5-10.1) Total Bilirubin 0.3 mg/dL (0.2-1.0) Aspartate Amino Transf (AST/SGOT) 12 U/L (15-37) Alanine Aminotransferase (ALT/SGPT) 12 U/L (14-59) Alkaline Phosphatase 82 U/L (46-116) Total Protein 5.1 g/dL (6.4-8.2) Albumin 1.3 g/dL (3.4-5.0) Albumin/Globulin Ratio 0.3 (1.0-1.7) Micro BC neg Objective Assessment Patient with prolonged hospitalization more than 4 months Multiple medical problems Multiple surgical procedures URINE with parapsilosis S/P Exp. 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 parapsilosis & PSAE (I-merrem/ceftazidime/AZT/cefepime)) Leukocytosis - better Loose stool but on tube feed - WBC down and no gross fever Fever - 11/11 c-diff neg Anemia Acute gallstone pancreatitis with persistent necrosis - 07/27. CT A/P Increased ascites. 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 status post KAYLIN drain placement; C. parapsilosis. s/p drain 08/23 + yeast & high amylase; s/p additional drain on 08/25. Drains removed. -08/23. fluid devyn parapsilosis fluid, amylase high - 09/23 showed multiple pseudocysts, slight larger on the right. s/p drains x 3, 09/24. + PSAE (MDRO-R Cefepime, Zosyn ALEXANDRA < 64) and yeast, -09/24 s/p drain replacement x 3; fluid cult PSAE (MDRO), yeast; treated -10/29 CT A/P shows smaller fluid collections. -722 CT abdomen and pelvis drains in place Ascites s/p paracentesis 08/02 & 08/23. C. parapsilosis Cholelithiasis with thickening of the gallbladder wall. JUANA, Hyperkalemia, Metabolic acidosis off dialysis Acute hypoxic resp failure. trach/vent. sputum 6/13 + PSAE (I merrem) ; sputum culture November 05+ for PSAE R Merrem, sensitive to cefepime Pleural effusion status post CTS left side Abdominal fluid culture MDRO Pseudomonas, yeast Sputum culture positive 11/05 for MDRO Pseudomonas Chest tube fluid positive for 11/07 Devyn Parapsilosis EC fistula Plan Plan of Care Lind changed 11/13 d/c antibiotics Nystatin to groin UA and urine culture Blood culture/Cath tip neg - neg C. difficile negative Monitor WBC/temp Wound care /drain management as directed Contact isolation for CRE/MDRO detention prognosis poor D/w nursing KIMMY JONES MD Nov 23, 2019 08:19
[2019-11-23] MEDS: ENOXAPARIN 40 MG/0.4 ML SYRINGE. SQ SCH (09:26)
[2019-11-23] MEDS: ONDANSETRON PF 4 MG/2 ML VIAL. IV PRN (09:26)
[2019-11-23] MEDS: PANTOPRAZOLE IV PUSH 40 MG VIAL. IVP SCH (09:26)
[2019-11-23] MEDS: POLYVINYL ALCOHOL 1.4% OPHTH SOLUTION 15ML BOTTLE. OU PRN (09:26)
[2019-11-23] MEDS: MULTIVITAMINS,THERAPEUTIC 5 ML ORAL LIQUID. PEG SCH (09:27)
[2019-11-23 11:00] VITALS: BP 127/79
--- NOTE | 2019-11-23 11:11 | PDOC ---
Date of Service: DATE: 11/23/19 TIME: 11:08 Subjective: Subjective: Asks when she can eat and drink. Nurse says has c/o "stomach upset" from tube feeds. Objective: Vital Signs: Vital Signs Date Time Temp Pulse Resp B/P (MAP) Pulse Ox O2 Delivery O2 Flow Rate FiO2 11/23/19 11:00 97.3 115 18 127/79 (95) 96 Room Air 97.3 11/22/19 09:32 2.0 Labs: Laboratory Tests Test 11/22/19 12:16 11/22/19 18:27 11/22/19 23:37 11/23/19 05:51 Glucose (Fingerstick) 137 mg/dL 111 mg/dL 102 mg/dL 114 mg/dL Test 11/23/19 06:00 11/23/19 06:40 White Blood Count 7.0 x10^3/uL 8.2 x10^3/uL Red Blood Count 2.09 x10^6/uL 2.67 x10^6/uL Hemoglobin 5.9 g/dL 7.3 g/dL Hematocrit 18.3 % 22.9 % Mean Corpuscular Volume 88 fL 86 fL Mean Corpuscular Hemoglobin 28 pg 27 pg Mean Corpuscular Hemoglobin Concent 32 g/dL 32 g/dL Red Cell Distribution Width 18.3 % 18.2 % Platelet Count 465 x10^3/uL 593 x10^3/uL Neutrophils (%) (Auto) 73 % 71 % Lymphocytes (%) (Auto) 16 % 17 % Monocytes (%) (Auto) 8 % 8 % Eosinophils (%) (Auto) 3 % 4 % Basophils (%) (Auto) 0 % 1 % Neutrophils # (Auto) 5.1 x10^3/uL 5.8 x10^3/uL Lymphocytes # (Auto) 1.1 x10^3/uL 1.4 x10^3/uL Monocytes # (Auto) 0.5 x10^3/uL 0.7 x10^3/uL Eosinophils # (Auto) 0.2 x10^3/uL 0.3 x10^3/uL Basophils # (Auto) 0.0 x10^3/uL 0.0 x10^3/uL Sodium Level 140 mmol/L Potassium Level 4.1 mmol/L Chloride Level 108 mmol/L Carbon Dioxide Level 28 mmol/L Anion Gap 4 Blood Urea Nitrogen 9 mg/dL Creatinine 0.5 mg/dL Estimated GFR (Cockcroft-Gault) 131.1 BUN/Creatinine Ratio 18 Glucose Level 114 mg/dL Calcium Level 10.9 mg/dL Total Bilirubin 0.3 mg/dL Aspartate Amino Transf (AST/SGOT) 12 U/L Alanine Aminotransferase (ALT/SGPT) 12 U/L Alkaline Phosphatase 82 U/L Total Protein 5.1 g/dL Albumin 1.3 g/dL Albumin/Globulin Ratio 0.3 PE: GEN: chronically ill, up in chair HEENT: trach, speaking valve CTAB: clear HEART: tachcyardic ABD: right side w/ bag/drainage, GJ tube w/ feeds NEURO/PSYCH: A & O 3 A/P: S/p pancreatic necrosectomy, complications -- Supportive care. Defer diet to surgery, [employer], etc. Justicifation of Admission Dx: Justifications for Admission: Justification of Admission Dx: Yes CYNDEE FALCON Nov 23, 2019 11:11
--- NOTE | 2019-11-23 11:35 | PDOC ---
SURGICAL PROGRESS NOTE DATE: 11/23/19 TIME: 11:33 Subjective Pt alert and interactive, manny tube feeds. Vital Signs Vital Signs Date Time Temp Pulse Resp B/P (MAP) Pulse Ox O2 Delivery O2 Flow Rate FiO2 11/23/19 11:00 97.3 115 18 127/79 (95) 96 Room Air 97.3 11/22/19 09:32 2.0 I&O Intake and Output 11/23/19 07:00 Intake Total 1223 ml Output Total 2440 ml Balance -1217 ml IV Total 250 ml Tube Feeding 713 ml Blood Product IV Normal Saline Flush 40 ml Other 220 ml Output Urine Total 1040 ml Drainage Total 1400 ml # Bowel Movements 1 General: Alert, Cooperative, No acute distress Abdomen: Soft, No tenderness Labs Laboratory Tests Test 11/21/19 12:07 11/21/19 18:03 11/21/19 23:18 11/22/19 06:08 Glucose (Fingerstick) 113 mg/dL (70-99) 131 mg/dL (70-99) 107 mg/dL (70-99) 130 mg/dL (70-99) Test 11/22/19 12:16 11/22/19 18:27 11/22/19 23:37 11/23/19 05:51 Glucose (Fingerstick) 137 mg/dL (70-99) 111 mg/dL (70-99) 102 mg/dL (70-99) 114 mg/dL (70-99) Test 11/23/19 06:00 11/23/19 06:40 White Blood Count 7.0 x10^3/uL (4.0-11.0) 8.2 x10^3/uL (4.0-11.0) Red Blood Count 2.09 x10^6/uL (3.50-5.40) 2.67 x10^6/uL (3.50-5.40) Hemoglobin 5.9 g/dL (12.0-15.5) 7.3 g/dL (12.0-15.5) Hematocrit 18.3 % (36.0-47.0) 22.9 % (36.0-47.0) Mean Corpuscular Volume 88 fL (79-100) 86 fL (79-100) Mean Corpuscular Hemoglobin 28 pg (25-35) 27 pg (25-35) Mean Corpuscular Hemoglobin Concent 32 g/dL (31-37) 32 g/dL (31-37) Red Cell Distribution Width 18.3 % (11.5-14.5) 18.2 % (11.5-14.5) Platelet Count 465 x10^3/uL (140-400) 593 x10^3/uL (140-400) Neutrophils (%) (Auto) 73 % (31-73) 71 % (31-73) Lymphocytes (%) (Auto) 16 % (24-48) 17 % (24-48) Monocytes (%) (Auto) 8 % (0-9) 8 % (0-9) Eosinophils (%) (Auto) 3 % (0-3) 4 % (0-3) Basophils (%) (Auto) 0 % (0-3) 1 % (0-3) Neutrophils # (Auto) 5.1 x10^3/uL (1.8-7.7) 5.8 x10^3/uL (1.8-7.7) Lymphocytes # (Auto) 1.1 x10^3/uL (1.0-4.8) 1.4 x10^3/uL (1.0-4.8) Monocytes # (Auto) 0.5 x10^3/uL (0.0-1.1) 0.7 x10^3/uL (0.0-1.1) Eosinophils # (Auto) 0.2 x10^3/uL (0.0-0.7) 0.3 x10^3/uL (0.0-0.7) Basophils # (Auto) 0.0 x10^3/uL (0.0-0.2) 0.0 x10^3/uL (0.0-0.2) Sodium Level 140 mmol/L (136-145) Potassium Level 4.1 mmol/L (3.5-5.1) Chloride Level 108 mmol/L (98-107) Carbon Dioxide Level 28 mmol/L (21-32) Anion Gap 4 (6-14) Blood Urea Nitrogen 9 mg/dL (7-20) Creatinine 0.5 mg/dL (0.6-1.0) Estimated GFR (Cockcroft-Gault) 131.1 BUN/Creatinine Ratio 18 (6-20) Glucose Level 114 mg/dL (70-99) Calcium Level 10.9 mg/dL (8.5-10.1) Total Bilirubin 0.3 mg/dL (0.2-1.0) Aspartate Amino Transf (AST/SGOT) 12 U/L (15-37) Alanine Aminotransferase (ALT/SGPT) 12 U/L (14-59) Alkaline Phosphatase 82 U/L (46-116) Total Protein 5.1 g/dL (6.4-8.2) Albumin 1.3 g/dL (3.4-5.0) Albumin/Globulin Ratio 0.3 (1.0-1.7) Laboratory Tests Test 11/22/19 12:16 11/22/19 18:27 11/22/19 23:37 11/23/19 05:51 Glucose (Fingerstick) 137 mg/dL (70-99) 111 mg/dL (70-99) 102 mg/dL (70-99) 114 mg/dL (70-99) Test 11/23/19 06:00 11/23/19 06:40 White Blood Count 7.0 x10^3/uL (4.0-11.0) 8.2 x10^3/uL (4.0-11.0) Red Blood Count 2.09 x10^6/uL (3.50-5.40) 2.67 x10^6/uL (3.50-5.40) Hemoglobin 5.9 g/dL (12.0-15.5) 7.3 g/dL (12.0-15.5) Hematocrit 18.3 % (36.0-47.0) 22.9 % (36.0-47.0) Mean Corpuscular Volume 88 fL (79-100) 86 fL (79-100) Mean Corpuscular Hemoglobin 28 pg (25-35) 27 pg (25-35) Mean Corpuscular Hemoglobin Concent 32 g/dL (31-37) 32 g/dL (31-37) Red Cell Distribution Width 18.3 % (11.5-14.5) 18.2 % (11.5-14.5) Platelet Count 465 x10^3/uL (140-400) 593 x10^3/uL (140-400) Neutrophils (%) (Auto) 73 % (31-73) 71 % (31-73) Lymphocytes (%) (Auto) 16 % (24-48) 17 % (24-48) Monocytes (%) (Auto) 8 % (0-9) 8 % (0-9) Eosinophils (%) (Auto) 3 % (0-3) 4 % (0-3) Basophils (%) (Auto) 0 % (0-3) 1 % (0-3) Neutrophils # (Auto) 5.1 x10^3/uL (1.8-7.7) 5.8 x10^3/uL (1.8-7.7) Lymphocytes # (Auto) 1.1 x10^3/uL (1.0-4.8) 1.4 x10^3/uL (1.0-4.8) Monocytes # (Auto) 0.5 x10^3/uL (0.0-1.1) 0.7 x10^3/uL (0.0-1.1) Eosinophils # (Auto) 0.2 x10^3/uL (0.0-0.7) 0.3 x10^3/uL (0.0-0.7) Basophils # (Auto) 0.0 x10^3/uL (0.0-0.2) 0.0 x10^3/uL (0.0-0.2) Sodium Level 140 mmol/L (136-145) Potassium Level 4.1 mmol/L (3.5-5.1) Chloride Level 108 mmol/L (98-107) Carbon Dioxide Level 28 mmol/L (21-32) Anion Gap 4 (6-14) Blood Urea Nitrogen 9 mg/dL (7-20) Creatinine 0.5 mg/dL (0.6-1.0) Estimated GFR (Cockcroft-Gault) 131.1 BUN/Creatinine Ratio 18 (6-20) Glucose Level 114 mg/dL (70-99) Calcium Level 10.9 mg/dL (8.5-10.1) Total Bilirubin 0.3 mg/dL (0.2-1.0) Aspartate Amino Transf (AST/SGOT) 12 U/L (15-37) Alanine Aminotransferase (ALT/SGPT) 12 U/L (14-59) Alkaline Phosphatase 82 U/L (46-116) Total Protein 5.1 g/dL (6.4-8.2) Albumin 1.3 g/dL (3.4-5.0) Albumin/Globulin Ratio 0.3 (1.0-1.7) Problem List Problems Medical Problems: (1) Acute pancreatitis Status: Acute (2) Cholelithiasis Status: Acute Assessment/Plan severe pancreatitis cont supportive care and tube feeds. Justicifation of Admission Dx: Justifications for Admission: Justification of Admission Dx: Yes DAVON SIMMS MD Nov 23, 2019 11:35
--- NOTE | 2019-11-23 13:26 | NUR ---
SS following up with discharge planning. SS reviewed pt chart and discussed with pt RN. Pt is currently on room air. IV antibiotics discontinued. Pt has ostomy bags over drainage sites. Pt on tube feeds (Osmolyte). GJ tube. Pt wearing speaking valve intermittently. Pt max assist with PT/OT and staff. SS discussed with [facility]. Kinjal from [facility] reported that they need authorization form signed by pt's daughters, copy of sons photo ID, and information on pt's stocks. SS e-mailed pt's daughters requesting information. Pt's daughter Norma contacted and we discussed needed information and discharge planning. Pt's daughter reported that she would send SS needed information tonight. She reported that as of right now resources at home are limited and her ultimate goal is for pt to be Medicaid pending in LTC facility. Pt's daughter reported that they have been spending down on pt's bills and reported that she would send SS documentation of what they have spent. APS Hotline report made due to difficulties with obtaining information from pt's daughters and concern for pt's safety if returning to home due to lack of resources, intake# [id number]. SS will continue to follow for discharge planning.
[2019-11-23] MEDS ORDERED: FUROSEMIDE 40 MG/4 ML VIAL. IVP ONE (14:30)
[2019-11-23] MEDS ORDERED: IV NORMAL SALINE 1000ML BAG 1,000 ML IV ONE (14:30)
--- NOTE | 2019-11-23 14:31 | PDOC ---
[employer] PROGRESS NOTE Date of Service DOS: DATE: 11/23/19 TIME: 14:26 Chief Complaint Chief Complaint A/P: S/P Exp. 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 parapsilosis & PSAE (I-merrem/ceftazidime/AZT/cefepime)) Leucocytosis -stable [id number] last night Acute gallstone pancreatitis with persistent necrosis Acute hypoxic Respiratory failure required mechanical ventilation Tracheostomy Thursday. bilateral pleural effusions/pulm edema s/p Throacentesis on 10/03/2019 Severe Acute gallstone pancreatitis (not a surgical candidate at this time) with necrosis Acute kidney failure now requiring dialysis Gallstones (Calculus of gallbladder with acute cholecystitis without obstruction) HTN Intractable pain Intractable nausea Covid 19 negative. Acute on chronic anemia EEG: No seizure activity Fever - intermittent ? Ileus with vomiting Abd distention - U/S and CT reviewed s/p 0.4 L of opaque, debris-containing ascites was removed 08/23 Acute pancreatitis with persistent necrosis Gallstone pancreatitis with necrosis. -CT A/P 09/23 showed multiple pseudocysts, slight larger on the right. s/p drains x , 09/24. + PSAE (MDRO-R Cefepime, Zosyn ALEXANDRA < 64) and yeast, -s/p drain 08/14. C. parapsilosis. s/p drain 08/23 + yeast & high amylase; s/p additional drain on 08/25. Drains removed. Ascites s/p paracentesis 08/02 & 08/23. C. parapsilosis JUANA. off HD. A large fluid collection in the pancreatic bed has slightly decreased in size, described below, the pancreas itself is difficult to visualize, which could be due to necrosis or obscuration of pancreatic parenchyma from the surrounding fluid collection.10/02 - 08/14 status post KAYLIN drain placement + C paropsilosis. s/p additional drains 08/25 Anemia - S/p PRBCs. Cholelithiasis with thickening of the gallbladder wall. Leucocytosis improving JUANA, hyperkalemia, Metabolic acidosis off dialysis hypocalcemia Prediabetes HTN s/p trach Hyperglycemia severe protein-caloric malnutrition Moderate to large left pleural effusion with atelectasis and collapse of most of the left lower lobe, stable Extensive retroperitoneal fluid collections persist. Percutaneous drains remain within the collections in both paracolic gutters. These communicate with additional pelvic and peripancreatic collections. History of Present Illness History of Present Illness Hemoglobin abnormally low on repeat has been stable 7.2. Calcium up to 10.9. She is able to work with PT, she is asking to eat. Social work is been having difficulties with both of her daughters completing the financial aspect of disability paperwork which is been prolonging her stay over the past 5 months. Plan to check PTH and to treat hypercalcemia with 1 L normal saline 40 mg of IV Lasix and repeat labs in a.m. 11/21: Not wishing to wear her speaking valve. J tube having some difficulties. Afebrile. Jamaal bedside to aid her. transferred from ICU today 11/20: No overnight events. Calcium 10.7 on AM labs. She is still a bit slow to to respond, but follows commands well. Does not want speaking valve with me. Pain is better controlled in her abdomen. Wound care to see today. Will check liver function and phos levels given her calcium elevation. 11/20/2019 Patient seen and examined bedside. Positive fluid balance in the past 24 hours. Patient's chart, labs, images were reviewed and discussed with RN 11/19/2019 No acute events overnight. Seen and examined at bedside. Patient had a fever 100.2. Negative fluid balance of 150 cc. Patient's chart, labs, images were reviewed and discussed with RN 11/18/2019 Patient seen and examined at bedside. No acute events overnight. Positive fluid balance 633. Patient's chart, labs, images were reviewed and discussed with RN 11/17/2019 Patient seen and examined bedside. No acute events overnight. Patient's chart, labs, images were reviewed and discussed with RN 11/15/2019 Patient seen and examined bedside. Patient appears to be in no obvious pain. All drains have been adequately draining. Patient continues to be on TPN. Chart labs and imaging was reviewed. Negative fluid balance of 270 cc 11/14/2019 Patient seen and examined in the ICU. Patient still requires extensive care. 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 Chart, labs, imaging was reviewed. UOP with + 500cc balance. 11/11 Patient seen in and examined in the ICU She is still extremely critically ill Appears weak, frail, and pale Better color today with improved eye contact and expression Discussed with RN Chart reviewed 11/08/2019 Patient seen and examined in the ICU She is still extremely critically ill Appears extremely weak frail and pale Discussed with RN Chart reviewed Vitals/I&O Vitals/I&O: Vital Signs Date Time Temp Pulse Resp B/P (MAP) Pulse Ox O2 Delivery O2 Flow Rate FiO2 11/23/19 12:22 96 Room Air 11/23/19 11:00 97.3 115 18 127/79 (95) 97.3 11/23/19 08:00 2.0 I & O 11/22/19 11/22/19 11/23/19 15:00 23:00 07:00 Intake Total 385 ml 100 ml 738 ml Output Total 150 ml 1350 ml 940 ml Balance 235 ml -1250 ml -202 ml Physical Exam Physical Exam: GENERAL: pt in bed, appears weak -comfortable -alert HEENT: Pupils equal, oral cavity dry. OC/Op - Dry NECK: Tracheostomy - no JVD LUNGS: Diminished aeration bases, HEART: S1, S2, ABDOMEN: Less Distended mild- bowel sounds hypoactive, soft, goyal x 2, KAYLIN drains, G-J tube. Some drainage around R quad tube again and mild insertion site irritation : Lind in place EXTREMITIES: Trace generalized edema, no cyanosis. Yeast in groin area SKIN: warm touch. No signs of rash. LUE- Previous PICC site without signs of complications. PIV s clean NEURO: - Alert and responsive PICC RUE - clean EC fistula General: Alert, Cooperative, No acute distress Heart: Other (distant heart sounds, tachycardic) Lungs: Clear Abdomen: Soft, No tenderness Extremities: Other (Diffuse edema) Skin: No rashes, No significant lesion Labs Labs: Laboratory Tests Test 11/22/19 18:27 11/22/19 23:37 11/23/19 05:51 11/23/19 06:00 Glucose (Fingerstick) 111 mg/dL (70-99) 102 mg/dL (70-99) 114 mg/dL (70-99) White Blood Count 7.0 x10^3/uL (4.0-11.0) Red Blood Count 2.09 x10^6/uL (3.50-5.40) Hemoglobin 5.9 g/dL (12.0-15.5) Hematocrit 18.3 % (36.0-47.0) Mean Corpuscular Volume 88 fL (79-100) Mean Corpuscular Hemoglobin 28 pg (25-35) Mean Corpuscular Hemoglobin Concent 32 g/dL (31-37) Red Cell Distribution Width 18.3 % (11.5-14.5) Platelet Count 465 x10^3/uL (140-400) Neutrophils (%) (Auto) 73 % (31-73) Lymphocytes (%) (Auto) 16 % (24-48) Monocytes (%) (Auto) 8 % (0-9) Eosinophils (%) (Auto) 3 % (0-3) Basophils (%) (Auto) 0 % (0-3) Neutrophils # (Auto) 5.1 x10^3/uL (1.8-7.7) Lymphocytes # (Auto) 1.1 x10^3/uL (1.0-4.8) Monocytes # (Auto) 0.5 x10^3/uL (0.0-1.1) Eosinophils # (Auto) 0.2 x10^3/uL (0.0-0.7) Basophils # (Auto) 0.0 x10^3/uL (0.0-0.2) Test 11/23/19 06:40 11/23/19 12:06 White Blood Count 8.2 x10^3/uL (4.0-11.0) Red Blood Count 2.67 x10^6/uL (3.50-5.40) Hemoglobin 7.3 g/dL (12.0-15.5) Hematocrit 22.9 % (36.0-47.0) Mean Corpuscular Volume 86 fL (79-100) Mean Corpuscular Hemoglobin 27 pg (25-35) Mean Corpuscular Hemoglobin Concent 32 g/dL (31-37) Red Cell Distribution Width 18.2 % (11.5-14.5) Platelet Count 593 x10^3/uL (140-400) Neutrophils (%) (Auto) 71 % (31-73) Lymphocytes (%) (Auto) 17 % (24-48) Monocytes (%) (Auto) 8 % (0-9) Eosinophils (%) (Auto) 4 % (0-3) Basophils (%) (Auto) 1 % (0-3) Neutrophils # (Auto) 5.8 x10^3/uL (1.8-7.7) Lymphocytes # (Auto) 1.4 x10^3/uL (1.0-4.8) Monocytes # (Auto) 0.7 x10^3/uL (0.0-1.1) Eosinophils # (Auto) 0.3 x10^3/uL (0.0-0.7) Basophils # (Auto) 0.0 x10^3/uL (0.0-0.2) Sodium Level 140 mmol/L (136-145) Potassium Level 4.1 mmol/L (3.5-5.1) Chloride Level 108 mmol/L (98-107) Carbon Dioxide Level 28 mmol/L (21-32) Anion Gap 4 (6-14) Blood Urea Nitrogen 9 mg/dL (7-20) Creatinine 0.5 mg/dL (0.6-1.0) Estimated GFR (Cockcroft-Gault) 131.1 BUN/Creatinine Ratio 18 (6-20) Glucose Level 114 mg/dL (70-99) Calcium Level 10.9 mg/dL (8.5-10.1) Total Bilirubin 0.3 mg/dL (0.2-1.0) Aspartate Amino Transf (AST/SGOT) 12 U/L (15-37) Alanine Aminotransferase (ALT/SGPT) 12 U/L (14-59) Alkaline Phosphatase 82 U/L (46-116) Total Protein 5.1 g/dL (6.4-8.2) Albumin 1.3 g/dL (3.4-5.0) Albumin/Globulin Ratio 0.3 (1.0-1.7) Glucose (Fingerstick) 132 mg/dL (70-99) Assessment and Plan Assessmemt and Plan Problems Medical Problems: (1) Acute pancreatitis Status: Acute (2) Cholelithiasis Status: Acute Comment Review of Relevant I have reviewed the following items kolby (where applicable) has been applied. Medications: Current Medications Medications (Trade) Dose Ordered Sig/Yvon Route PRN Reason Start Time Stop Time Status Last Admin Dose Admin Lidocaine HCl (Buffered Lidocaine 1%) 5 ml 1X ONCE INJ 11/22/19 15:45 11/22/19 15:46 DC 11/22/19 15:00 Iohexol (Omnipaque 240 Mg/ml) 10 ml 1X ONCE IJ 11/22/19 15:45 11/22/19 15:46 DC 11/22/19 15:00 Multivitamins/ Minerals Therapeutic (Centrum Multivit-Mineral Liq) 5 ml DAILY PEG 11/23/19 09:00 11/23/19 09:27 Alteplase, Recombinant (Cathflo For Central Catheter Clearance) 1 mg 1X ONCE INT CAT 11/23/19 07:00 11/23/19 07:01 DC 11/23/19 09:30 Justicifation of Admission Dx: Justifications for Admission: Justification of Admission Dx: Yes DAVIN LANDEROS MD Nov 23, 2019 14:31
[2019-11-23 15:00] VITALS: BP 130/86
--- NOTE | 2019-11-23 17:35 | NUR ---
Wound Care: Patient seen per wound care follow up regarding appliance change to right abdomen. Bag removed and skin prepped for change. Bag applied and good seal maintained. Patient has previous drains that are now removed to the midline lower abdomen and the left abdomen (distal) which are cleansed and redressed with Xeroform gauze, gauze, and tape. The left abdomen with a current drain in place has created redness and pressure, a hydrocolloid applied. These dressing to be changed every other day and the bag to be checked and changed weekly or PRN if needed due to drainage and leaking. No other wounds noted. Patient repositioned in bed and call light in reach. Bilateral heels elevated. Bed lowered. Wound care will continue to follow patient regarding wound care.
[2019-11-23 20:10] VITALS: BP 136/84
[2019-11-23] MEDS: PROCHLORPERAZINE 10 MG/2 ML VIAL. IV PRN (22:43)
[2019-11-23 22:49] VITALS: BP 146/100
[2019-11-23] MEDS: VITS A & D/LANOLIN TOPICAL OINTMENT 42GM TUBE. TP PRN (23:33)
[2019-11-24] MEDS: IPRATRPIUM/ALBUTEROL 0.5/2.5MG 3 ML NEBU. NEB SCH ×7 (00:42→23:47)
[2019-11-24 03:00] VITALS: BP 158/104
[2019-11-24] MEDS: INSULIN LISPRO 300 UNITS/3 ML VIAL. SQ SCH ×4 (06:00→18:00)
[2019-11-24 06:04] LABS: CALCIUM 11.3 mg/dL (8.5-10.1); CREATININE 0.6 mg/dL (0.6-1.0); GFR 106.3; POTASSIUM 3.7 mmol/L (3.5-5.1)
[2019-11-24 06:29] LABS: BASO % 1 % (0-3); EOS # 0.2 x10^3/uL (0.0-0.7); EOS % 2 % (0-3); HEMATOCRIT 25.1 % (36.0-47.0); LYMPH # 1.3 x10^3/uL (1.0-4.8); LYMPH % 14 % (24-48); MEAN CORPUSCULAR HEMOGLOBIN 28 pg (25-35); MEAN CORPUSCULAR HGB CONC 32 g/dL (31-37); MEAN CORPUSCULAR VOLUME 86 fL (79-100); MONO # 0.6 x10^3/uL (0.0-1.1); MONO % 7 % (0-9); NEUT # 7.2 x10^3/uL (1.8-7.7); NEUT % 77 % (31-73); PLATELET COUNT 646 x10^3/uL (140-400); RED CELL DISTRIBUTION WIDTH 17.7 % (11.5-14.5); WHITE BLOOD COUNT 9.3 x10^3/uL (4.0-11.0)
[2019-11-24 07:00] VITALS: BP 124/79
--- NOTE | 2019-11-24 07:43 | PDOC ---
[employer] PROGRESS NOTE Date of Service DOS: DATE: 11/24/19 TIME: 07:42 Chief Complaint Chief Complaint A/P: S/P Exp. 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 parapsilosis & PSAE (I-merrem/ceftazidime/AZT/cefepime)) Leucocytosis -stable Hyfod550.2 last night Acute gallstone pancreatitis with persistent necrosis Acute hypoxic Respiratory failure required mechanical ventilation Tracheostomy Thursday. bilateral pleural effusions/pulm edema s/p Throacentesis on 10/03/2019 Severe Acute gallstone pancreatitis (not a surgical candidate at this time) with necrosis Acute kidney failure now requiring dialysis Gallstones (Calculus of gallbladder with acute cholecystitis without obstruction) HTN Intractable pain Intractable nausea Covid 19 negative. Acute on chronic anemia EEG: No seizure activity Fever - intermittent ? Ileus with vomiting Abd distention - U/S and CT reviewed s/p 0.4 L of opaque, debris-containing ascites was removed 08/23 Acute pancreatitis with persistent necrosis Gallstone pancreatitis with necrosis. -CT A/P 09/23 showed multiple pseudocysts, slight larger on the right. s/p drains x , 09/24. + PSAE (MDRO-R Cefepime, Zosyn ALEXANDRA < 64) and yeast, -s/p drain 08/14. C. parapsilosis. s/p drain 08/23 + yeast & high amylase; s/p additional drain on 08/25. Drains removed. Ascites s/p paracentesis 08/02 & 08/23. C. parapsilosis JUANA. off HD. A large fluid collection in the pancreatic bed has slightly decreased in size, described below, the pancreas itself is difficult to visualize, which could be due to necrosis or obscuration of pancreatic parenchyma from the surrounding fluid collection.10/02 - 08/14 status post KAYLIN drain placement + C paropsilosis. s/p additional drains 08/25 Anemia - S/p PRBCs. Cholelithiasis with thickening of the gallbladder wall. Leucocytosis improving JUANA, hyperkalemia, Metabolic acidosis off dialysis hypocalcemia Prediabetes HTN s/p trach Hyperglycemia severe protein-caloric malnutrition Moderate to large left pleural effusion with atelectasis and collapse of most of the left lower lobe, stable Extensive retroperitoneal fluid collections persist. Percutaneous drains remain within the collections in both paracolic gutters. These communicate with additional pelvic and peripancreatic collections. History of Present Illness History of Present Illness Hb stable. Afebrile. Weak. Calcium increased. Shortness of breath is improving. Plan for calcitonin today, lasix, and saline 11/22: Hemoglobin abnormally low on repeat has been stable 7.2. Calcium up to 10.9. She is able to work with PT, she is asking to eat. Social work is been having difficulties with both of her daughters completing the financial aspect of disability paperwork which is been prolonging her stay over the past 5 months. Plan to check PTH and to treat hypercalcemia with 1 L normal saline 40 mg of IV Lasix and repeat labs in a.m. 11/21: Not wishing to wear her speaking valve. J tube having some difficulties. Afebrile. Jamaal bedside to aid her. transferred from ICU today 11/20: No overnight events. Calcium 10.7 on AM labs. She is still a bit slow to to respond, but follows commands well. Does not want speaking valve with me. Pain is better controlled in her abdomen. Wound care to see today. Will check liver function and phos levels given her calcium elevation. 11/20/2019 Patient seen and examined bedside. Positive fluid balance in the past 24 hours. Patient's chart, labs, images were reviewed and discussed with RN 11/19/2019 No acute events overnight. Seen and examined at bedside. Patient had a fever 100.2. Negative fluid balance of 150 cc. Patient's chart, labs, images were reviewed and discussed with RN 11/18/2019 Patient seen and examined at bedside. No acute events overnight. Positive fluid balance 633. Patient's chart, labs, images were reviewed and discussed with RN 11/17/2019 Patient seen and examined bedside. No acute events overnight. Patient's chart, labs, images were reviewed and discussed with RN 11/15/2019 Patient seen and examined bedside. Patient appears to be in no obvious pain. All drains have been adequately draining. Patient continues to be on TPN. Chart labs and imaging was reviewed. Negative fluid balance of 270 cc 11/14/2019 Patient seen and examined in the ICU. Patient still requires extensive care. 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 Chart, labs, imaging was reviewed. UOP with + 500cc balance. 11/11 Patient seen in and examined in the ICU She is still extremely critically ill Appears weak, frail, and pale Better color today with improved eye contact and expression Discussed with RN Chart reviewed 11/08/2019 Patient seen and examined in the ICU She is still extremely critically ill Appears extremely weak frail and pale Discussed with RN Chart reviewed Vitals/I&O Vitals/I&O: Vital Signs Date Time Temp Pulse Resp B/P (MAP) Pulse Ox O2 Delivery O2 Flow Rate FiO2 11/24/19 03:36 Room Air 11/24/19 03:00 109 22 158/104 (122) 96 11/23/19 22:49 98.3 98.3 11/23/19 20:00 2.0 I & O 11/23/19 11/23/19 11/24/19 15:00 23:00 07:00 Intake Total 100 ml 1796 ml 100 ml Output Total 150 ml 2075 ml 725 ml Balance -50 ml -279 ml -625 ml Physical Exam Physical Exam: GENERAL: pt in bed, appears weak -comfortable -alert HEENT: Pupils equal, oral cavity dry. OC/Op - Dry NECK: Tracheostomy - no JVD LUNGS: Diminished aeration bases, HEART: S1, S2, ABDOMEN: Less Distended mild- bowel sounds hypoactive, soft, goyal x 2, KAYLIN drains, G-J tube. Some drainage around R quad tube again and mild insertion site irritation : Lind in place EXTREMITIES: Trace generalized edema, no cyanosis. Yeast in groin area SKIN: warm touch. No signs of rash. LUE- Previous PICC site without signs of complications. PIV s clean NEURO: - Alert and responsive PICC RUE - clean EC fistula General: Alert, Cooperative, No acute distress Heart: Other (distant heart sounds, tachycardic) Lungs: Clear Abdomen: Soft, No tenderness Extremities: Other (Diffuse edema) Skin: No rashes, No significant lesion Labs Labs: Laboratory Tests Test 11/23/19 12:06 11/23/19 19:10 11/24/19 01:14 11/24/19 05:40 Glucose (Fingerstick) 132 mg/dL (70-99) 140 mg/dL (70-99) 136 mg/dL (70-99) White Blood Count 9.3 x10^3/uL (4.0-11.0) Red Blood Count 2.90 x10^6/uL (3.50-5.40) Hemoglobin 8.0 g/dL (12.0-15.5) Hematocrit 25.1 % (36.0-47.0) Mean Corpuscular Volume 86 fL (79-100) Mean Corpuscular Hemoglobin 28 pg (25-35) Mean Corpuscular Hemoglobin Concent 32 g/dL (31-37) Red Cell Distribution Width 17.7 % (11.5-14.5) Platelet Count 646 x10^3/uL (140-400) Neutrophils (%) (Auto) 77 % (31-73) Lymphocytes (%) (Auto) 14 % (24-48) Monocytes (%) (Auto) 7 % (0-9) Eosinophils (%) (Auto) 2 % (0-3) Basophils (%) (Auto) 1 % (0-3) Neutrophils # (Auto) 7.2 x10^3/uL (1.8-7.7) Lymphocytes # (Auto) 1.3 x10^3/uL (1.0-4.8) Monocytes # (Auto) 0.6 x10^3/uL (0.0-1.1) Eosinophils # (Auto) 0.2 x10^3/uL (0.0-0.7) Basophils # (Auto) 0.0 x10^3/uL (0.0-0.2) Sodium Level 139 mmol/L (136-145) Potassium Level 3.7 mmol/L (3.5-5.1) Chloride Level 107 mmol/L (98-107) Carbon Dioxide Level 29 mmol/L (21-32) Anion Gap 3 (6-14) Blood Urea Nitrogen 9 mg/dL (7-20) Creatinine 0.6 mg/dL (0.6-1.0) Estimated GFR (Cockcroft-Gault) 106.3 Glucose Level 144 mg/dL (70-99) Calcium Level 11.3 mg/dL (8.5-10.1) Test 11/24/19 05:43 Glucose (Fingerstick) 141 mg/dL (70-99) Assessment and Plan Assessmemt and Plan Problems Medical Problems: (1) Acute pancreatitis Status: Acute (2) Cholelithiasis Status: Acute Comment Review of Relevant I have reviewed the following items kolby (where applicable) has been applied. Medications: Current Medications Medications (Trade) Dose Ordered Sig/Yvon Route PRN Reason Start Time Stop Time Status Last Admin Dose Admin Multivitamins/ Minerals Therapeutic (Centrum Multivit-Mineral Liq) 5 ml DAILY PEG 11/23/19 09:00 11/23/19 09:27 Sodium Chloride 1,000 ml @ 125 mls/hr 1X ONCE IV 11/23/19 14:30 11/23/19 22:29 DC 11/23/19 16:12 Furosemide (Lasix) 40 mg 1X ONCE IVP 11/23/19 14:30 11/23/19 14:33 DC 11/23/19 16:17 Justicifation of Admission Dx: Justifications for Admission: Justification of Admission Dx: Yes DAVIN LANDEROS MD Nov 24, 2019 07:42
[2019-11-24] MEDS ORDERED: IV NORMAL SALINE 1000ML BAG 1,000 ML IV ONE (07:45)
[2019-11-24] MEDS: MULTIVITAMINS,THERAPEUTIC 5 ML ORAL LIQUID. PEG SCH (08:32)
[2019-11-24] MEDS: PANTOPRAZOLE IV PUSH 40 MG VIAL. IVP SCH (08:33)
[2019-11-24] MEDS: FUROSEMIDE 40 MG/4 ML VIAL. IVP SCH ×2 (08:33→13:51)
[2019-11-24] MEDS: fentaNYL 12MCG/HR PATCH 1 PATCH PATCH.TD72 TD SCH (08:34)
[2019-11-24] MEDS: ENOXAPARIN 40 MG/0.4 ML SYRINGE. SQ SCH (08:34)
--- NOTE | 2019-11-24 08:38 | PDOC ---
Infectious Disease Note Subjective Subjective awake, says feeling ok, trach Vital Sign Vital Signs Vital Signs Date Time Temp Pulse Resp B/P (MAP) Pulse Ox O2 Delivery O2 Flow Rate FiO2 11/24/19 03:36 Room Air 11/24/19 03:00 109 22 158/104 (122) 96 11/23/19 22:49 98.3 98.3 11/23/19 20:00 2.0 Physical Exam PHYSICAL EXAM GENERAL: pt in bed, appears weak -comfortable -alert HEENT: Pupils equal, oral cavity dry. OC/Op - Dry NECK: Tracheostomy - no JVD LUNGS: Diminished aeration bases, HEART: S1, S2, ABDOMEN: Less Distended mild- bowel sounds hypoactive, soft, goyal x 2, KAYLIN drains, G-J tube. Some drainage around R quad tube again and mild insertion site irritation : Lind in place EXTREMITIES: Trace generalized edema, no cyanosis. Yeast in groin area SKIN: warm touch. No signs of rash. LUE- Previous PICC site without signs of complications. PIV s clean NEURO: - Alert and responsive PICC RUE - clean EC fistula Labs Lab Laboratory Tests Test 11/23/19 12:06 11/23/19 19:10 11/24/19 01:14 11/24/19 05:40 Glucose (Fingerstick) 132 mg/dL (70-99) 140 mg/dL (70-99) 136 mg/dL (70-99) White Blood Count 9.3 x10^3/uL (4.0-11.0) Red Blood Count 2.90 x10^6/uL (3.50-5.40) Hemoglobin 8.0 g/dL (12.0-15.5) Hematocrit 25.1 % (36.0-47.0) Mean Corpuscular Volume 86 fL (79-100) Mean Corpuscular Hemoglobin 28 pg (25-35) Mean Corpuscular Hemoglobin Concent 32 g/dL (31-37) Red Cell Distribution Width 17.7 % (11.5-14.5) Platelet Count 646 x10^3/uL (140-400) Neutrophils (%) (Auto) 77 % (31-73) Lymphocytes (%) (Auto) 14 % (24-48) Monocytes (%) (Auto) 7 % (0-9) Eosinophils (%) (Auto) 2 % (0-3) Basophils (%) (Auto) 1 % (0-3) Neutrophils # (Auto) 7.2 x10^3/uL (1.8-7.7) Lymphocytes # (Auto) 1.3 x10^3/uL (1.0-4.8) Monocytes # (Auto) 0.6 x10^3/uL (0.0-1.1) Eosinophils # (Auto) 0.2 x10^3/uL (0.0-0.7) Basophils # (Auto) 0.0 x10^3/uL (0.0-0.2) Sodium Level 139 mmol/L (136-145) Potassium Level 3.7 mmol/L (3.5-5.1) Chloride Level 107 mmol/L (98-107) Carbon Dioxide Level 29 mmol/L (21-32) Anion Gap 3 (6-14) Blood Urea Nitrogen 9 mg/dL (7-20) Creatinine 0.6 mg/dL (0.6-1.0) Estimated GFR (Cockcroft-Gault) 106.3 Glucose Level 144 mg/dL (70-99) Calcium Level 11.3 mg/dL (8.5-10.1) Test 11/24/19 05:43 Glucose (Fingerstick) 141 mg/dL (70-99) Micro BC neg Objective Assessment Patient with prolonged hospitalization more than 4 months Multiple medical problems Multiple surgical procedures URINE with parapsilosis S/P Exp. 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 parapsilosis & PSAE (I-merrem/ceftazidime/AZT/cefepime)) Leukocytosis - better Loose stool but on tube feed - WBC down and no gross fever Fever - 11/11 c-diff neg Anemia Acute gallstone pancreatitis with persistent necrosis - 07/27. CT A/P Increased ascites. 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 status post KAYLIN drain placement; C. parapsilosis. s/p drain 08/23 + yeast & high amylase; s/p additional drain on 08/25. Drains removed. -08/23. fluid devyn parapsilosis fluid, amylase high - 09/23 showed multiple pseudocysts, slight larger on the right. s/p drains x 3, 09/24. + PSAE (MDRO-R Cefepime, Zosyn ALEXANDRA < 64) and yeast, -09/24 s/p drain replacement x 3; fluid cult PSAE (MDRO), yeast; treated -10/29 CT A/P shows smaller fluid collections. -722 CT abdomen and pelvis drains in place Ascites s/p paracentesis 08/02 & 08/23. C. parapsilosis Cholelithiasis with thickening of the gallbladder wall. JUANA, Hyperkalemia, Metabolic acidosis off dialysis Acute hypoxic resp failure. trach/vent. sputum 09/30 + PSAE (I merrem) ; sputum culture November 05+ for PSAE R Merrem, sensitive to cefepime Pleural effusion status post CTS left side Abdominal fluid culture MDRO Pseudomonas, yeast Sputum culture positive 11/05 for MDRO Pseudomonas Chest tube fluid positive for 11/07 Devyn Parapsilosis EC fistula Plan Plan of Care Lind changed 11/13 d/c antibiotics Nystatin to groin UA and urine culture Blood culture/Cath tip neg - neg C. difficile negative Monitor WBC/temp Wound care /drain management as directed Contact isolation for CRE/MDRO correction prognosis poor D/w nursing KIMMY JONES MD Nov 24, 2019 08:38
[2019-11-24] MEDS: ACETYLCYSTEINE 20% for RESP TX 600 MG/3 ML. NEB SCH ×2 (08:47→20:00)
[2019-11-24 09:14] LABS: CALCIUM PTH 11.1 mg/dL (8.7-10.2); CREATININE PTH 0.29 mg/dL (0.57-1.00); PHOSPHORUS PTH 4.3 mg/dL (3.0-4.3); PTH INTACT 2 pg/mL (15-65)
--- NOTE | 2019-11-24 10:41 | PDOC ---
Date of Service: DATE: 11/24/19 TIME: 10:39 Objective: Vital Signs: Vital Signs Date Time Temp Pulse Resp B/P (MAP) Pulse Ox O2 Delivery O2 Flow Rate FiO2 11/24/19 08:52 97 Room Air 11/24/19 08:34 18 11/24/19 07:00 97.5 109 124/79 (94) 97.5 11/23/19 20:00 2.0 Labs: Laboratory Tests Test 11/23/19 12:06 11/23/19 19:10 11/24/19 01:14 11/24/19 05:40 Glucose (Fingerstick) 132 mg/dL 140 mg/dL 136 mg/dL White Blood Count 9.3 x10^3/uL Red Blood Count 2.90 x10^6/uL Hemoglobin 8.0 g/dL Hematocrit 25.1 % Mean Corpuscular Volume 86 fL Mean Corpuscular Hemoglobin 28 pg Mean Corpuscular Hemoglobin Concent 32 g/dL Red Cell Distribution Width 17.7 % Platelet Count 646 x10^3/uL Neutrophils (%) (Auto) 77 % Lymphocytes (%) (Auto) 14 % Monocytes (%) (Auto) 7 % Eosinophils (%) (Auto) 2 % Basophils (%) (Auto) 1 % Neutrophils # (Auto) 7.2 x10^3/uL Lymphocytes # (Auto) 1.3 x10^3/uL Monocytes # (Auto) 0.6 x10^3/uL Eosinophils # (Auto) 0.2 x10^3/uL Basophils # (Auto) 0.0 x10^3/uL Sodium Level 139 mmol/L Potassium Level 3.7 mmol/L Chloride Level 107 mmol/L Carbon Dioxide Level 29 mmol/L Anion Gap 3 Blood Urea Nitrogen 9 mg/dL Creatinine 0.6 mg/dL Estimated GFR (Cockcroft-Gault) 106.3 Glucose Level 144 mg/dL Calcium Level 11.3 mg/dL Test 11/24/19 05:43 Glucose (Fingerstick) 141 mg/dL PE: GEN: chronically ill - in bed, RT present NEURO/PSYCH: less interactive today A/P: S/p pancreatic necrosectomy, complications -- Continue support. Justicifation of Admission Dx: Justifications for Admission: Justification of Admission Dx: Yes CYNDEE FALCON Nov 24, 2019 10:41
[2019-11-24 11:00] VITALS: BP 140/88
--- NOTE | 2019-11-24 11:20 | PDOC2 ---
CONSULT Date of Consult Date of Consult DATE: 11/24/19 TIME: 11:04 Reason for Consult Reason for Consult: HyperCalcemia Source Source: Chart review, Patient History of Present Illness Reason for Visit: Pt is 48 yo CF has been hospitalized at [facility] since 07/04/2019 with Dx of Acute gallstone pancreatitis with persistent necrosis,Acute hypoxic Respiratory failure required mechanical ventilation . Renal was consulted initially for JUANA -requiring CRRT/HD . 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 She Recd IVF and and is on lasix per Primary Interval Hx - S/P Exp. Lap, SAURABH, ronel, G-J tube & Pancreatic Necrosectomy on 10/17, C. parapsilosis & PSAE (I-merrem/ceftazidime/AZT/cefepime)) Bilateral pleural effusions/pulm edema s/p Throacentesis on 10/03/2019 s/p trach She has been working with PT . No acute concerns or complaints voiced by Pt or Nursing Past Medical History Cardiovascular: HTN, Hyperlipidemia GI: GERD Renal/: UTI Endocrine: Diabetes Past Surgical History Past Surgical History: Other (recent abdominal surgery) Family History Family History: High Cholestrol, Hypertension Social History No ALCOHOL: none Drugs: None Current Problem List Problem List Problems Medical Problems: (1) Acute pancreatitis Status: Acute (2) Cholelithiasis Status: Acute Current Medications Current Medications Current Medications Sodium Chloride 1,000 ml @ 1,000 mls/hr Q1H IV Last administered on 07/04/19at 03:00; Start 07/04/19 at 03:00; Stop 07/04/19 at 03:59; Status DC Ondansetron HCl (Zofran) 4 mg 1X ONCE IVP Last administered on 07/04/19at 03:27; Start 07/04/19 at 03:00; Stop 07/04/19 at 03:01; Status DC Morphine Sulfate (Morphine Sulfate) 4 mg 1X ONCE IV ; Start 07/04/19 at 03:00; Stop 07/04/19 at 03:01; Status Cancel Ketorolac Tromethamine (Toradol 30mg Vial) 30 mg 1X ONCE IV Last administered on 07/04/19at 02:54; Start 07/04/19 at 03:00; Stop 07/04/19 at 03:01; Status DC Fentanyl Citrate (Fentanyl 2ml Vial) 25 mcg 1X ONCE IVP Last administered on 07/04/19at 03:23; Start 07/04/19 at 03:30; Stop 07/04/19 at 03:31; Status DC Fentanyl Citrate (Fentanyl 2ml Vial) 100 mcg STK-MED ONCE .ROUTE ; Start 07/04/19 at 03:18; Stop 07/04/19 at 03:18; Status DC Iohexol (Omnipaque 350 Mg/ml) 90 ml 1X ONCE IV Last administered on 07/04/19at 03:25; Start 07/04/19 at 03:30; Stop 07/04/19 at 03:31; Status DC Info (CONTRAST GIVEN -- Rx MONITORING) 1 each PRN DAILY PRN MC SEE COMMENTS; Start 07/04/19 at 03:30; Stop 07/06/19 at 03:29; Status DC Hydromorphone HCl (Dilaudid) 0.5 mg 1X ONCE IV Last administered on 07/04/19at 03:55; Start 07/04/19 at 04:30; Stop 07/04/19 at 04:32; Status DC Ondansetron HCl (Zofran) 4 mg PRN Q8HRS PRN IV NAUSEA/VOMITING 1ST CHOICE; Start 07/04/19 at 05:00; Stop 07/04/19 at 09:27; Status DC Morphine Sulfate (Morphine Sulfate) 2 mg PRN Q2HR PRN IV SEVERE PAIN 7-10 Last administered on 07/05/19at 12:26; Start 07/04/19 at 05:00; Stop 07/05/19 at 1 4:15; Status DC Sodium Chloride 1,000 ml @ 125 mls/hr Q8H IV Last administered on 07/04/19at 20:56; Start 07/04/19 at 05:00; Stop 07/05/19 at 04:59; Status DC Hydromorphone HCl (Dilaudid) 0.5 mg PRN Q3HRS PRN IV SEVERE PAIN 7-10 Last administered on 07/05/19at 10:06; Start 07/04/19 at 05:00; Stop 07/05/19 at 12:01; Status DC Piperacillin Sod/ Tazobactam Sod 4.5 gm/Sodium Chloride 100 ml @ 200 mls/hr 1X ONCE IV Last administered on 07/04/19at 05:44; Start 07/04/19 at 06:00; Stop 07/04/19 at 06:29; Status DC Ondansetron HCl (Zofran) 4 mg PRN Q4HRS PRN IV NAUSEA/VOMITING 1ST CHOICE Last administered on 11/23/19at 09:26; Start 07/04/19 at 09:30 Insulin Human Lispro (HumaLOG) 0-9 UNITS Q6HRS SQ Last administered on 11/18/19at 12:15; Start 07/04/19 at 09:30 Dextrose (Dextrose 50%-Water Syringe) 12.5 gm PRN Q15MIN PRN IV SEE COMMENTS; Start 07/04/19 at 09:30 Pantoprazole Sodium (PROTONIX VIAL for IV PUSH) 40 mg DAILYAC IVP Last administered on 11/24/19at 08:33; Start 07/04/19 at 11:30 Prochlorperazine Edisylate (Compazine) 10 mg PRN Q6HRS PRN IV NAUSEA/VOMITING, 2nd CHOICE Last administered on 11/23/19at 22:43; Start 07/04/19 at 17:45 Atenolol (Tenormin) 100 mg DAILY PO ; Start 07/05/19 at 09:00; Stop 07/04/19 at 20:08; Status DC Metoprolol Tartrate (Lopressor Vial) 2.5 mg Q6HRS IVP Last administered on 07/05/19at 05:51; Start 07/04/19 at 20:15; Stop 07/05/19 at 10:02; Status DC Metoprolol Tartrate (Lopressor Vial) 5 mg Q6HRS IVP Last administered on 07/14/19at 00:12; Start 07/05/19 at 10:15; Stop 07/16/19 at 08:48; Status DC Hydromorphone HCl (Dilaudid) 1 mg PRN Q3HRS PRN IV SEVERE PAIN 7-10 Last administered on 07/11/19at 05:13; Start 07/05/19 at 12:00; Stop 07/19/19 at 00:25; Status DC Lidocaine HCl (Buffered Lidocaine 1%) 3 ml STK-MED ONCE .ROUTE ; Start 07/05/19 at 12:55; Stop 07/05/19 at 12:56; Status DC Albumin Human 500 ml @ 125 mls/hr 1X ONCE IV Last administered on 07/05/19at 14:33; Start 07/05/19 at 14:30; Stop 07/05/19 at 18:32; Status DC Norepinephrine Bitartrate 8 mg/ Dextrose 258 ml @ 17.299 mls/ hr CONT PRN IV PER PROTOCOL Last administered on 08/02/19at 12:48; Start 07/05/19 at 15:30; Stop 08/05/19 at 09:19; Status DC Sodium Chloride 1,000 ml @ 125 mls/hr Q8H IV Last administered on 07/05/19at 21:04; Start 07/05/19 at 16:00; Stop 07/06/19 at 02:42; Status DC Albumin Human 500 ml @ 125 mls/hr PRN BID PRN IV After every 2L NSS & BP < 90mm Last administered on 10/18/19at 16:06; Start 07/05/19 at 16:00; Stop 10/21/19 at 09:30; Status DC Iohexol (Omnipaque 300 Mg/ml) 60 ml 1X ONCE IV Last administered on 07/05/19at 17:20; Start 07/05/19 at 17:00; Stop 07/05/19 at 17:01; Status DC Info (CONTRAST GIVEN -- Rx MONITORING) 1 each PRN DAILY PRN MC SEE COMMENTS; Start 07/05/19 at 17:00; Stop 07/07/19 at 16:59; Status DC Meropenem 1 gm/ Sodium Chloride 100 ml @ 200 mls/hr Q8HRS IV Last administered on 07/06/19at 05:45; Start 07/05/19 at 20:00; Stop 07/06/19 at 08:48; Status DC Furosemide (Lasix) 40 mg 1X ONCE IVP Last administered on 07/05/19at 22:12; Start 07/05/19 at 22:30; Stop 07/05/19 at 22:31; Status DC Calcium Chloride 1000 mg/Sodium Chloride 110 ml @ 220 mls/hr 1X ONCE IV Last administered on 07/05/19at 22:11; Start 07/05/19 at 22:30; Stop 07/05/19 at 22:59; Status DC Albuterol Sulfate (Ventolin Neb Soln) 2.5 mg 1X ONCE NEB Last administered on 07/06/19at 00:56; Start 07/05/19 at 22:30; Stop 07/05/19 at 22:31; Status DC Insulin Human Regular (HumuLIN R VIAL) 5 unit 1X ONCE IV Last administered on 07/05/19at 22:14; Start 07/05/19 at 22:30; Stop 07/05/19 at 22:31; Status DC Magnesium Sulfate 50 ml @ 25 mls/hr 1X ONCE IV Last administered on 07/06/19at 02:57; Start 07/06/19 at 03:00; Stop 07/06/19 at 04:59; Status DC Calcium Gluconate 1000 mg/Sodium Chloride 110 ml @ 220 mls/hr 1X ONCE IV Last administered on 07/06/19at 02:46; Start 07/06/19 at 03:00; Stop 07/06/19 at 03:29; Status DC Sodium Chloride 1,000 ml @ 200 mls/hr Q5H IV Last administered on 07/06/19at 02:46; Start 07/06/19 at 03:00; Stop 07/06/19 at 10:21; Status DC Calcium Gluconate 1000 mg/Sodium Chloride 110 ml @ 220 mls/hr 1X ONCE IV Last administered on 07/06/19at 03:21; Start 07/06/19 at 03:30; Stop 07/06/19 at 03:59; Status DC Sodium Bicarbonate 50 meq/Sodium Chloride 1,050 ml @ 75 mls/hr Q14H IV Last administered on 07/10/19at 21:10; Start 07/06/19 at 07:30; Stop 07/11/19 at 10:28; Status DC Calcium Gluconate 2000 mg/Sodium Chloride 120 ml @ 220 mls/hr 1X ONCE IV Last administered on 07/06/19at 09:05; Start 07/06/19 at 07:30; Stop 07/06/19 at 08:02; Status DC Lidocaine HCl (Xylocaine-Mpf 1% 2ml Vial) 2 ml STK-MED ONCE .ROUTE ; Start 07/06/19 at 08:47; Stop 07/06/19 at 08:47; Status DC Meropenem 500 mg/ Sodium Chloride 50 ml @ 100 mls/hr Q12HR IV Last administered on 07/11/19at 21:01; Start 07/06/19 at 18:00; Stop 07/12/19 at 07:58; Status DC Lidocaine HCl (Buffered Lidocaine 1%) 3 ml STK-MED ONCE .ROUTE ; Start 07/06/19 at 09:46; Stop 07/06/19 at 09:46; Status DC Lidocaine HCl (Buffered Lidocaine 1%) 6 ml 1X ONCE INJ Last administered on 07/06/19at 10:26; Start 07/06/19 at 10:15; Stop 07/06/19 at 10:16; Status DC Info (Tpn Per Pharmacy) 1 each PRN DAILY PRN MC SEE COMMENTS Last administered on 11/13/19at 08:31; Start 07/06/19 at 12:00; Stop 11/13/19 at 10:41; Status DC Sodium Chloride 1,000 ml @ 1,000 mls/hr Q1H PRN IV hypotension; Start 07/06/19 at 12:07; Stop 07/06/19 at 18:06; Status DC Diphenhydramine HCl (Benadryl) 25 mg 1X PRN PRN IV ITCHING; Start 07/06/19 at 12:15; Stop 07/07/19 at 12:14; Status DC Diphenhydramine HCl (Benadryl) 25 mg 1X PRN PRN IV ITCHING; Start 07/06/19 at 12:15; Stop 07/07/19 at 12:14; Status DC Sodium Chloride 1,000 ml @ 400 mls/hr Q2H30M PRN IV PATENCY; Start 07/06/19 at 12:07; Stop 07/07/19 at 00:06; Status DC Info (PHARMACY MONITORING -- do not chart) 1 each PRN DAILY PRN MC SEE COMMENTS; Start 07/06/19 at 12:15; Stop 07/08/19 at 08:13; Status DC Sodium Chloride 90 meq/Calcium Gluconate 10 meq/ Multivitamins 10 ml/Chromium/ Copper/Manganese/ Seleni/Zn 1 ml/ Total Parenteral Nutrition/Amino Acids/Dextrose/ Fat Emulsion Intravenous 55.005 ml @ 2.292 mls/hr TPN CONT IV ; Start 07/06/19 at 22:00; Stop 07/06/19 at 12:33; Status DC Info (Tpn Per Pharmacy) 1 each PRN DAILY PRN MC SEE COMMENTS; Start 07/06/19 at 12:30; Status UNV Sodium Chloride 90 meq/Calcium Gluconate 10 meq/ Multivitamins 10 ml/Chromium/ Copper/Manganese/ Seleni/Zn 0.5 ml/ Total Parenteral Nutrition/Amino Acids/Dextrose/ Fat Emulsion Intravenous 1,512 ml @ 63 mls/hr TPN CONT IV Last administered on 07/06/19at 22:06; Start 07/06/19 at 22:00; Stop 07/07/19 at 21:59; Status DC Calcium Carbonate/ Glycine (Tums) 500 mg PRN AFTMEALHC PRN PO INDIGESTION; Start 07/06/19 at 17:45; Stop 08/31/19 at 10:25; Status DC Calcium Gluconate (Calcium Gluconate) 2,000 mg 1X ONCE IVP Last administered on 07/07/19at 02:19; Start 07/07/19 at 02:15; Stop 07/07/19 at 02:16; Status DC Calcium Chloride 3000 mg/Sodium Chloride 1,030 ml @ 50 mls/hr [id number] IV Last administered on 07/09/19at 02:17; Start 07/07/19 at 08:00; Stop 07/09/19 at 15:23; Status DC Lorazepam (Ativan Inj) 1 mg PRN Q4HRS PRN IVP ANXIETY / AGITATION, 2nd choic Last administered on 08/05/19at 03:51; Start 07/07/19 at 09:00; Stop 08/05/19 at 09:19; Status DC Sodium Chloride 1,000 ml @ 1,000 mls/hr Q1H PRN IV hypotension; Start 07/07/19 at 08:56; Stop 07/07/19 at 14:55; Status DC Albumin Human 200 ml @ 200 mls/hr 1X PRN PRN IV Hypotension; Start 07/07/19 at 09:00; Stop 07/07/19 at 14:59; Status DC Diphenhydramine HCl (Benadryl) 25 mg 1X PRN PRN IV ITCHING; Start 07/07/19 at 09:00; Stop 07/08/19 at 08:59; Status DC Diphenhydramine HCl (Benadryl) 25 mg 1X PRN PRN IV ITCHING; Start 07/07/19 at 09:00; Stop 07/08/19 at 08:59; Status DC Sodium Chloride 1,000 ml @ 400 mls/hr Q2H30M PRN IV PATENCY; Start 07/07/19 at 08:56; Stop 07/07/19 at 20:55; Status DC Info (PHARMACY MONITORING -- do not chart) 1 each PRN DAILY PRN MC SEE COMMENTS; Start 07/07/19 at 09:00; Status UNV Info (PHARMACY MONITORING -- do not chart) 1 each PRN DAILY PRN MC SEE COMMENTS; Start 07/07/19 at 09:00; Stop 07/08/19 at 08:13; Status DC Digoxin (Lanoxin) 500 mcg 1X ONCE IV Last administered on 07/07/19at 10:04; Start 07/07/19 at 10:00; Stop 07/07/19 at 10:01; Status DC Digoxin (Lanoxin) 125 mcg 1X ONCE IV Last administered on 07/07/19at 17:10; Start 07/07/19 at 18:00; Stop 07/07/19 at 18:01; Status DC Magnesium Sulfate 100 ml @ 25 mls/hr 1X ONCE IV Last administered on 07/07/19at 12:48; Start 07/07/19 at 13:00; Stop 07/07/19 at 16:59; Status DC Sodium Chloride 90 meq/Magnesium Sulfate 10 meq/ Calcium Gluconate 20 meq/ Multivitamins 10 ml/Chromium/ Copper/Manganese/ Seleni/Zn 0.5 ml/ Total Parenteral Nutrition/Amino Acids/Dextrose/ Fat Emulsion Intravenous 1,512 ml @ 63 mls/hr TPN CONT IV Last administered on 07/07/19at 22:25; Start 07/07/19 at 22:00; Stop 07/08/19 at 21:59; Status DC Sodium Chloride 1,000 ml @ 1,000 mls/hr Q1H PRN IV hypotension; Start 07/08/19 at 08:05; Stop 07/08/19 at 14:04; Status DC Albumin Human 200 ml @ 200 mls/hr 1X ONCE IV Last administered on 07/08/19at 08:57; Start 07/08/19 at 08:15; Stop 07/08/19 at 09:14; Status DC Diphenhydramine HCl (Benadryl) 25 mg 1X PRN PRN IV ITCHING; Start 07/08/19 at 08:15; Stop 07/09/19 at 08:14; Status DC Diphenhydramine HCl (Benadryl) 25 mg 1X PRN PRN IV ITCHING; Start 07/08/19 at 08:15; Stop 07/09/19 at 08:14; Status DC Sodium Chloride 1,000 ml @ 400 mls/hr Q2H30M PRN IV PATENCY; Start 07/08/19 at 08:05; Stop 07/08/19 at 20:04; Status DC Info (PHARMACY MONITORING -- do not chart) 1 each PRN DAILY PRN MC SEE COMMENTS; Start 07/08/19 at 08:15; Stop 07/12/19 at 07:57; Status DC Sodium Chloride 90 meq/Potassium Chloride 15 meq/ Potassium Phosphate 10 mmol/ Magnesium Sulfate 10 meq/Calcium Gluconate 20 meq/ Multivitamins 10 ml/Chromium/ Copper/Manganese/ Seleni/Zn 0.5 ml/ Total Parenteral Nutrition/Amino Acids/Dextrose/ Fat Emulsion Intravenous 1,512 ml @ 63 mls/hr TPN CONT IV Last administered on 07/08/19at 21:01; Start 07/08/19 at 22:00; Stop 07/09/19 at 21:59; Status DC Potassium Chloride/Water 100 ml @ 100 mls/hr 1X ONCE IV Last administered on 07/08/19at 14:09; Start 07/08/19 at 14:00; Stop 07/08/19 at 14:59; Status DC Benzocaine (Hurricaine One) 1 spray 1X ONCE MM Last administered on 07/08/19at 16:38; Start 07/08/19 at 14:30; Stop 07/08/19 at 14:31; Status DC Lidocaine HCl (Glydo (Lidocaine) Jelly) 1 ramu 1X ONCE MM Last administered on 07/08/19at 16:38; Start 07/08/19 at 14:30; Stop 07/08/19 at 14:31; Status DC Linezolid/Dextrose 300 ml @ 300 mls/hr Q12HR IV Last administered on 07/14/19at 21:04; Start 07/08/19 at 20:00; Stop 07/15/19 at 07:50; Status DC Acetaminophen (Tylenol) 650 mg PRN Q6HRS PRN PO MILD PAIN / TEMP; Start 07/09/19 at 03:30; Stop 07/09/19 at 03:36; Status DC Acetaminophen (Tylenol) 650 mg PRN Q6HRS PRN PEG MILD PAIN / TEMP Last administered on 08/04/19at 19:56; Start 07/09/19 at 03:36; Stop 08/31/19 at 10:25; Status DC Sodium Chloride 1,000 ml @ 1,000 mls/hr Q1H PRN IV hypotension; Start 07/09/19 at 07:50; Stop 07/09/19 at 13:49; Status DC Albumin Human 200 ml @ 200 mls/hr 1X PRN PRN IV Hypotension; Start 07/09/19 at 08:00; Stop 07/09/19 at 13:59; Status DC Sodium Chloride (Normal Saline Flush) 10 ml 1X PRN PRN IV AP catheter pack; Start 07/09/19 at 08:00; Stop 07/10/19 at 07:59; Status DC Sodium Chloride (Normal Saline Flush) 10 ml 1X PRN PRN IV 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; Start 07/09/19 at 08:00; Stop 07/10/19 at 07:59; Status DC Sodium Chloride 1,000 ml @ 400 mls/hr Q2H30M PRN IV PATENCY; Start 07/09/19 at 07:50; Stop 07/09/19 at 19:49; Status DC Info (PHARMACY MONITORING -- do not chart) 1 each PRN DAILY PRN MC SEE COMMENTS; Start 07/09/19 at 08:00; Status UNV Info (PHARMACY MONITORING -- do not chart) 1 each PRN DAILY PRN MC SEE COMMENTS; Start 07/09/19 at 08:00; Stop 07/11/19 at 08:25; Status DC Sodium Chloride 90 meq/Potassium Chloride 15 meq/ Potassium Phosphate 10 mmol/ Magnesium Sulfate 10 meq/Calcium Gluconate 20 meq/ Multivitamins 10 ml/Chromium/ Copper/Manganese/ Seleni/Zn 0.5 ml/ Total Parenteral Nutrition/Amino Acids/Dextrose/ Fat Emulsion Intravenous 1,512 ml @ 63 mls/hr TPN CONT IV Last administered on 07/09/19at 20:57; Start 07/09/19 at 22:00; Stop 07/10/19 at 21:59; Status DC Sodium Chloride 90 meq/Potassium Chloride 15 meq/ Potassium Phosphate 15 mmol/ Magnesium Sulfate 10 meq/Calcium Gluconate 20 meq/ Multivitamins 10 ml/Chromium/ Copper/Manganese/ Seleni/Zn 0.5 ml/ Total Parenteral Nutrition/Amino Ac ids/Dextrose/ Fat Emulsion Intravenous 1,512 ml @ 63 mls/hr TPN CONT IV ; Start 07/10/19 at 22:00; Stop 07/10/19 at 14:16; Status DC Sodium Chloride 90 meq/Potassium Chloride 15 meq/ Potassium Phosphate 15 mmol/ Magnesium Sulfate 10 meq/Calcium Gluconate 20 meq/ Multivitamins 10 ml/Chromium/ Copper/Manganese/ Seleni/Zn 0.5 ml/ Total Parenteral Nutrition/Amino Acids/Dextrose/ Fat Emulsion Intravenous 1,200 ml @ 50 mls/hr TPN CONT IV ; Start 07/10/19 at 22:00; Stop 07/10/19 at 14:17; Status DC Sodium Chloride 90 meq/Potassium Chloride 15 meq/ Potassium Phosphate 10 mmol/ Magnesium Sulfate 10 meq/Calcium Gluconate 20 meq/ Multivitamins 10 ml/Chromium/ Copper/Manganese/ Seleni/Zn 0.5 ml/ Total Parenteral Nutrition/Amino Acids/Dextrose/ Fat Emulsion Intravenous 1,200 ml @ 50 mls/hr TPN CONT IV Last administered on 07/10/19at 23:29; Start 07/10/19 at 22:00; Stop 07/11/19 at 21:59; Status DC Sodium Chloride 1,000 ml @ 1,000 mls/hr Q1H PRN IV hypotension; Start 07/11/19 at 07:28; Stop 07/11/19 at 13:27; Status DC Albumin Human 200 ml @ 200 mls/hr 1X ONCE IV Last administered on 07/11/19at 08:51; Start 07/11/19 at 07:30; Stop 07/11/19 at 08:29; Status DC Diphenhydramine HCl (Benadryl) 25 mg 1X PRN PRN IV ITCHING; Start 07/11/19 at 07:30; Stop 07/12/19 at 07:29; Status DC Diphenhydramine HCl (Benadryl) 25 mg 1X PRN PRN IV ITCHING; Start 07/11/19 at 07:30; Stop 07/12/19 at 07:29; Status DC Sodium Chloride 1,000 ml @ 400 mls/hr Q2H30M PRN IV PATENCY; Start 07/11/19 at 07:28; Stop 07/11/19 at 19:27; Status DC Info (PHARMACY MONITORING -- do not chart) 1 each PRN DAILY PRN MC SEE COMMENTS; Start 07/11/19 at 07:30; Stop 07/22/19 at 13:01; Status DC Metronidazole 100 ml @ 100 mls/hr Q6HRS IV Last administered on 07/27/19at 06:26; Start 07/11/19 at 08:30; Stop 07/27/19 at 09:58; Status DC Micafungin Sodium 100 mg/Dextrose 100 ml @ 100 mls/hr Q24H IV Last administered on 08/18/19at 08:18; Start 07/11/19 at 09:00; Stop 08/18/19 at 20:58; Status DC Propofol 0 ml @ As Directed STK-MED ONCE IV ; Start 07/11/19 at 07:53; Stop 07/11/19 at 07:53; Status DC Etomidate (Amidate) 20 mg STK-MED ONCE IV ; Start 07/11/19 at 07:53; Stop 07/11/19 at 07:54; Status DC Midazolam HCl (Versed) 5 mg STK-MED ONCE .ROUTE ; Start 07/11/19 at 07:57; Stop 07/11/19 at 07:57; Status DC Fentanyl Citrate 30 ml @ 0 mls/hr CONT PRN IV SEE PROTOCOL Last administered on 08/05/19at 06:12; Start 07/11/19 at 08:15; Stop 08/05/19 at 09:19; Status DC Artificial Tears (Artificial Tears) 1 drop PRN Q1HR PRN OU DRY EYE, 1st choice; Start 07/11/19 at 08:15; Stop 08/17/19 at 05:31; Status DC Midazolam HCl 50 mg/Sodium Chloride 50 ml @ 0 mls/hr CONT PRN IV SEE PROTOCOL Last administered on 07/14/19at 22:39; Start 07/11/19 at 08:15; Stop 07/16/19 at 15:59; Status DC Etomidate (Amidate) 8 mg 1X ONCE IV Last administered on 07/11/19at 08:33; Start 07/11/19 at 08:30; Stop 07/11/19 at 08:31; Status DC Succinylcholine Chloride (Anectine) 120 mg 1X ONCE IV Last administered on 07/11/19at 08:34; Start 07/11/19 at 08:30; Stop 07/11/19 at 08:31; Status DC Midazolam HCl (Versed) 5 mg 1X ONCE IV ; Start 07/11/19 at 08:30; Stop 07/11/19 at 08:31; Status DC Potassium Chloride 15 meq/ Bicarbonate Dialysis Soln w/ out KCl 5,007.5 ml @ 1,000 mls/ hr Q5H1M IV Last administered on 07/12/19at 11:11; Start 07/11/19 at 12:00; Stop 07/12/19 at 11:15; Status DC Potassium Chloride 15 meq/ Bicarbonate Dialysis Soln w/ out KCl 5,007.5 ml @ 1,000 mls/ hr Q5H1M IV Last administered on 07/12/19at 11:12; Start 07/11/19 at 12:00; Stop 07/12/19 at 11:17; Status DC Potassium Chloride 15 meq/ Bicarbonate Dialysis Soln w/ out KCl 5,007.5 ml @ 1,000 mls/ hr Q5H1M IV Last administered on 07/12/19at 11:11; Start 07/11/19 at 12:00; Stop 07/12/19 at 11:19; Status DC Sodium Chloride 90 meq/Potassium Chloride 15 meq/ Potassium Phosphate 10 mmol/ Magnesium Sulfate 10 meq/Calcium Gluconate 20 meq/ Multivitamins 10 ml/Chromium/ Copper/Manganese/ Seleni/Zn 0.5 ml/ Total Parenteral Nutrition/Amino Acids/Dextrose/ Fat Emulsion Intravenous 1,400 ml @ 58.333 mls/ hr TPN CONT IV Last administered on 07/11/19at 21:42; Start 07/11/19 at 22:00; Stop 07/12/19 at 21:59; Status DC Heparin Sodium (Porcine) (Heparin Sodium) 5,000 unit Q8HRS SQ Last administered on 07/16/19at 05:55; Start 07/11/19 at 15:00; Stop 07/16/19 at 13:28; Status DC Meropenem 500 mg/ Sodium Chloride 50 ml @ 100 mls/hr Q6HRS IV Last administered on 07/13/19at 06:00; Start 07/12/19 at 09:00; Stop 07/13/19 at 07:29; Status DC Potassium Phosphate 20 mmol/ Sodium Chloride 106.6667 ml @ 51.667 m... 1X ONCE IV Last administered on 07/12/19at 11:22; Start 07/12/19 at 10:15; Stop 07/12/19 at 12:18; Status DC Acetaminophen (Tylenol Supp) 650 mg PRN Q6HRS PRN CO MILD PAIN / TEMP > 100.3'F Last administered on 11/21/19at 15:24; Start 07/12/19 at 10:30 Potassium Chloride/Water 100 ml @ 100 mls/hr Q1H IV Last administered on 07/12/19at 12:12; Start 07/12/19 at 11:00; Stop 07/12/19 at 12:59; Status DC Potassium Chloride 20 meq/ Bicarbonate Dialysis Soln w/ out KCl 5,010 ml @ 1,000 mls/hr Q5H1M IV Last administered on 07/13/19at 08:48; Start 07/12/19 at 12:00; Stop 07/13/19 at 13:03; Status DC Potassium Chloride 20 meq/ Bicarbonate Dialysis Soln w/ out KCl 5,010 ml @ 1,000 mls/hr Q5H1M IV Last administered on 07/17/19at 14:52; Start 07/12/19 at 11:30; Stop 07/17/19 at 19:59; Status DC Potassium Chloride 20 meq/ Bicarbonate Dialysis Soln w/ out KCl 5,010 ml @ 1,000 mls/hr Q5H1M IV Last administered on 07/17/19at 14:53; Start 07/12/19 at 11:30; Stop 07/17/19 at 19:59; Status DC Sodium Chloride 90 meq/Potassium Chloride 15 meq/ Potassium Phosphate 15 mmol/ Magnesium Sulfate 10 meq/Calcium Gluconate 15 meq/ Multivitamins 10 ml/Chromium/ Copper/Manganese/ Seleni/Zn 0.5 ml/ Total Parenteral Nutrition/Amino Acids/Dextrose/ Fat Emulsion Intravenous 1,400 ml @ 58.333 mls/ hr TPN CONT IV Last administered on 07/12/19at 22:17; Start 07/12/19 at 22:00; Stop 07/13/19 at 21:59; Status DC Cefepime HCl (Maxipime) 2 gm Q12HR IVP Last administered on 07/26/19at 20:56; Start 07/13/19 at 09:00; Stop 07/27/19 at 09:58; Status DC Daptomycin 500 mg/ Sodium Chloride 50 ml @ 100 mls/hr Q48H IV Last administered on 07/29/19at 09:57; Start 07/13/19 at 08:30; Stop 07/29/19 at 10:07; Status DC Lidocaine HCl (Buffered Lidocaine 1%) 3 ml 1X ONCE INJ Last administered on 07/13/19at 10:27; Start 07/13/19 at 10:30; Stop 07/13/19 at 10:31; Status DC Potassium Phosphate 20 mmol/ Sodium Chloride 106.6667 ml @ 51.667 m... 1X ONCE IV Last administered on 07/13/19at 12:51; Start 07/13/19 at 13:00; Stop 07/13/19 at 15:03; Status DC Sodium Chloride 90 meq/Potassium Chloride 15 meq/ Potassium Phosphate 18 mmol/ Magnesium Sulfate 8 meq/Calcium Gluconate 15 meq/ Multivitamins 10 ml/Chromium/ Copper/Manganese/ Seleni/Zn 0.5 ml/ Total Parenteral Nutrition/Amino Acids/Dextrose/ Fat Emulsion Intravenous 1,400 ml @ 58.333 mls/ hr TPN CONT IV Last administered on 07/13/19at 22:16; Start 07/13/19 at 22:00; Stop 07/14/19 at 21:59; Status DC Potassium Chloride 20 meq/ Bicarbonate Dialysis Soln w/ out KCl 5,010 ml @ 1,000 mls/hr Q5H1M IV Last administered on 07/17/19at 14:54; Start 07/13/19 at 16:00; Stop 07/17/19 at 19:59; Status DC Multi-Ingred Cream/Lotion/Oil/ Oint (Artificial Tears Eye Ointment) 1 ramu PRN Q1HR PRN OU DRY EYE, 2nd choice Last administered on 08/01/19at 08:19; Start 07/13/19 at 17:30; Stop 09/21/19 at 14:39; Status DC Sodium Chloride 90 meq/Potassium Chloride 15 meq/ Potassium Phosphate 18 mmol/ Magnesium Sulfate 8 meq/Calcium Gluconate 15 meq/ Multivitamins 10 ml/Chromium/ Copper/Manganese/ Seleni/Zn 0.5 ml/ Total Parenteral Nutrition/Amino Acids/Dextrose/ Fat Emulsion Intravenous 1,400 ml @ 58.333 mls/ hr TPN CONT IV Last administered on 07/14/19at 22:00; Start 07/14/19 at 22:00; Stop 07/15/19 at 21:59; Status DC Albumin Human 500 ml @ 125 mls/hr 1X ONCE IV ; Start 07/14/19 at 14:15; Stop 07/14/19 at 18:14; Status DC Sodium Chloride 90 meq/Potassium Chloride 15 meq/ Potassium Phosphate 18 mmol/ Magnesium Sulfate 8 meq/Calcium Gluconate 15 meq/ Multivitamins 10 ml/Chromium/ Copper/Manganese/ Seleni/Zn 0.5 ml/ Insulin Human Regular 10 unit/ Total Parenteral Nutrition/Amino Acids/Dextrose/ Fat Emulsion Intravenous 1,400 ml @ 58.333 mls/ hr TPN CONT IV Last administered on 07/15/19at 21:43; Start 07/15/19 at 22:00; Stop 07/16/19 at 21:59; Status DC Lidocaine HCl (Buffered Lidocaine 1%) 3 ml STK-MED ONCE .ROUTE ; Start 07/13/19 at 10:00; Stop 07/15/19 at 13:57; Status DC Midazolam HCl 100 mg/Sodium Chloride 100 ml @ 7 mls/hr CONT PRN IV SEE PROTOCOL Last administered on 07/27/19at 15:35; Start 07/16/19 at 16:00; Stop 09/21/19 at 14:38; Status DC Sodium Chloride 90 meq/Potassium Chloride 15 meq/ Potassium Phosphate 18 mmol/ Magnesium Sulfate 8 meq/Calcium Gluconate 15 meq/ Multivitamins 10 ml/Chromium/ Copper/Manganese/ Seleni/Zn 0.5 ml/ Insulin Human Regular 15 unit/ Total Parenteral Nutrition/Amino Acids/Dextrose/ Fat Emulsion Intravenous 1,400 ml @ 58.333 mls/ hr TPN CONT IV Last administered on 07/16/19at 20:34; Start 07/16/19 at 22:00; Stop 07/17/19 at 21:59; Status DC Info (Icu Electrolyte Protocol) 1 ea CONT PRN PRN MC PER PROTOCOL; Start 07/17/19 at 13:15 Sodium Chloride 90 meq/Potassium Chloride 15 meq/ Potassium Phosphate 18 mmol/ Magnesium Sulfate 8 meq/Calcium Gluconate 15 meq/ Multivitamins 10 ml/Chromium/ Copper/Manganese/ Seleni/Zn 0.5 ml/ Insulin Human Regular 15 unit/ Total Parenteral Nutrition/Amino Acids/Dextrose/ Fat Emulsion Intravenous 1,400 ml @ 58.333 mls/ hr TPN CONT IV Last administered on 07/17/19at 22:05; Start 07/17/19 at 22:00; Stop 07/18/19 at 21:59; Status DC Potassium Chloride 15 meq/ Bicarbonate Dialysis Soln w/ out KCl 5,007.5 ml @ 1,000 mls/ hr Q5H1M IV Last administered on 07/20/19at 18:14; Start 07/17/19 at 20:00; Stop 07/21/19 at 13:08; Status DC Potassium Chloride 15 meq/ Bicarbonate Dialysis Soln w/ out KCl 5,007.5 ml @ 1,000 mls/ hr Q5H1M IV Last administered on 07/20/19at 18:14; Start 07/17/19 at 20:00; Stop 07/21/19 at 13:08; Status DC Potassium Chloride 15 meq/ Bicarbonate Dialysis Soln w/ out KCl 5,007.5 ml @ 1,000 mls/ hr Q5H1M IV Last administered on 07/20/19at 18:14; Start 07/17/19 at 20:00; Stop 07/21/19 at 13:08; Status DC Iohexol (Omnipaque 240 Mg/ml) 30 ml 1X ONCE PO Last administered on 07/18/19at 11:30; Start 07/18/19 at 11:30; Stop 07/18/19 at 11:33; Status DC Info (CONTRAST GIVEN -- Rx MONITORING) 1 each PRN DAILY PRN MC SEE COMMENTS; Start 07/18/19 at 11:45; Stop 07/20/19 at 11:44; Status DC Sodium Chloride 90 meq/Potassium Chloride 15 meq/ Potassium Phosphate 18 mmol/ Magnesium Sulfate 8 meq/Calcium Gluconate 15 meq/ Multivitamins 10 ml/Chromium/ Copper/Manganese/ Seleni/Zn 0.5 ml/ Insulin Human Regular 15 unit/ Total Parenteral Nutrition/Amino Acids/Dextrose/ Fat Emulsion Intravenous 1,400 ml @ 58.333 mls/ hr TPN CONT IV Last administered on 07/18/19at 21:47; Start 07/18/19 at 22:00; Stop 07/19/19 at 21:59; Status DC Sodium Chloride 90 meq/Potassium Chloride 15 meq/ Potassium Phosphate 18 mmol/ Magnesium Sulfate 8 meq/Calcium Gluconate 15 meq/ Multivitamins 10 ml/Chromium/ Copper/Manganese/ Seleni/Zn 0.5 ml/ Insulin Human Regular 20 unit/ Total Parenteral Nutrition/Amino Acids/Dextrose/ Fat Emulsion Intravenous 1,400 ml @ 58.333 mls/ hr TPN CONT IV Last administered on 07/19/19at 21:36; Start 07/19/19 at 22:00; Stop 07/20/19 at 21:59; Status DC Alteplase, Recombinant (Cathflo For Central Catheter Clearance) 1 mg 1X ONCE INT CAT Last administered on 07/19/19at 20:03; Start 07/19/19 at 19:30; Stop 07/19/19 at 19:46; Status DC Alteplase, Recombinant (Cathflo For Central Catheter Clearance) 1 mg 1X ONCE INT CAT Last administered on 07/19/19at 22:05; Start 07/19/19 at 22:00; Stop 07/19/19 at 22:01; Status DC Sodium Chloride 90 meq/Potassium Chloride 15 meq/ Potassium Phosphate 18 mmol/ Magnesium Sulfate 8 meq/Calcium Gluconate 15 meq/ Multivitamins 10 ml/Chromium/ Copper/Manganese/ Seleni/Zn 0.5 ml/ Insulin Human Regular 20 unit/ Total Parenteral Nutrition/Amino Acids/Dextrose/ Fat Emulsion Intravenous 1,400 ml @ 58.333 mls/ hr TPN CONT IV Last administered on 07/20/19at 21:30; Start 07/20/19 at 22:00; Stop 07/21/19 at 21:59; Status DC Dexmedetomidine HCl 400 mcg/ Sodium Chloride 100 ml @ 0 mls/hr CONT PRN IV ANXIETY / AGITATION Last administered on 09/17/19at 12:57; Start 07/21/19 at 08:15; Stop 09/17/19 at 18:31; Status DC Sodium Chloride 500 ml @ 500 mls/hr 1X PRN PRN IV ELEVATED BP, SEE COMMENTS; Start 07/21/19 at 08:15; Stop 11/23/19 at 09:08; Status DC Atropine Sulfate (ATROPINE 0.5mg SYRINGE) 0.5 mg PRN Q5MIN PRN IV SEE COMMENTS; Start 07/21/19 at 08:15; Stop 11/21/19 at 09:45; Status DC Furosemide (Lasix) 20 mg 1X ONCE IVP Last administered on 07/21/19at 08:19; Start 07/21/19 at 08:15; Stop 07/21/19 at 08:16; Status DC Lidocaine HCl (Buffered Lidocaine 1%) 3 ml STK-MED ONCE .ROUTE ; Start 07/21/19 at 08:39; Stop 07/21/19 at 08:39; Status DC Lidocaine HCl (Buffered Lidocaine 1%) 6 ml 1X ONCE INJ Last administered on 07/21/19at 09:05; Start 07/21/19 at 09:00; Stop 07/21/19 at 09:06; Status DC Sodium Chloride 90 meq/Potassium Chloride 15 meq/ Potassium Phosphate 18 mmol/ Magnesium Sulfate 8 meq/Calcium Gluconate 15 meq/ Multivitamins 10 ml/Chromium/ Copper/Manganese/ Seleni/Zn 0.5 ml/ Insulin Human Regular 20 unit/ Total Parenteral Nutrition/Amino Acids/Dextrose/ Fat Emulsion Intravenous 1,400 ml @ 58.333 mls/ hr TPN CONT IV Last administered on 07/21/19at 22:45; Start 07/21/19 at 22:00; Stop 07/22/19 at 21:59; Status DC Sodium Chloride 1,000 ml @ 1,000 mls/hr Q1H PRN IV hypotension; Start 07/22/19 at 07:30; Stop 07/22/19 at 13:29; Status DC Albumin Human 200 ml @ 200 mls/hr 1X PRN PRN IV Hypotension Last administered on 07/22/19at 09:36; Start 07/22/19 at 07:30; Stop 07/22/19 at 13:29; Status DC Sodium Chloride (Normal Saline Flush) 10 ml 1X PRN PRN IV AP catheter pack; Start 07/22/19 at 07:30; Stop 07/22/19 at 21:29; Status DC Sodium Chloride (Normal Saline Flush) 10 ml 1X PRN PRN IV 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; Start 07/22/19 at 07:30; Stop 07/23/19 at 07:29; Status DC Sodium Chloride 1,000 ml @ 400 mls/hr Q2H30M PRN IV PATENCY; Start 07/22/19 at 07:30; Stop 07/22/19 at 19:29; Status DC Info (PHARMACY MONITORING -- do not chart) 1 each PRN DAILY PRN MC SEE COMMENTS; Start 07/22/19 at 07:30; Stop 07/22/19 at 13:02; Status DC Info (PHARMACY MONITORING -- do not chart) 1 each PRN DAILY PRN MC SEE COMMENTS; Start 07/22/19 at 07:30; Stop 07/24/19 at 12:45; Status DC Sodium Chloride 90 meq/Potassium Chloride 15 meq/ Potassium Phosphate 10 mmol/ Magnesium Sulfate 8 meq/Calcium Gluconate 15 meq/ Multivitamins 10 ml/Chromium/ Copper/Manganese/ Seleni/Zn 0.5 ml/ Insulin Human Regular 25 unit/ Total Par enteral Nutrition/Amino Acids/Dextrose/ Fat Emulsion Intravenous 1,400 ml @ 58.333 mls/ hr TPN CONT IV Last administered on 07/22/19at 22:19; Start 07/22/19 at 22:00; Stop 07/23/19 at 21:59; Status DC Heparin Sodium (Porcine) (Heparin Sodium) 5,000 unit Q12HR SQ Last administered on 08/14/19at 08:59; Start 07/22/19 at 21:00; Stop 08/14/19 at 10:05; Status DC Ondansetron HCl (Zofran) 4 mg PRN Q6HRS PRN IV NAUSEA/VOMITING; Start 07/25/19 at 07:00; Stop 07/26/19 at 06:59; Status DC Fentanyl Citrate (Fentanyl 2ml Vial) 25 mcg PRN Q5MIN PRN IV MILD PAIN 1-3; Start 07/25/19 at 07:00; Stop 07/26/19 at 06:59; Status DC Fentanyl Citrate (Fentanyl 2ml Vial) 50 mcg PRN Q5MIN PRN IV MODERATE TO SEVERE PAIN; Start 07/25/19 at 07:00; Stop 07/26/19 at 06:59; Status DC Ringer's Solution 1,000 ml @ 30 mls/hr Q24H IV ; Start 07/25/19 at 07:00; Stop 07/25/19 at 18:59; Status DC Lidocaine HCl (Xylocaine-Mpf 1% 2ml Vial) 2 ml PRN 1X PRN ID PRIOR TO IV START; Start 07/25/19 at 07:00; Stop 07/26/19 at 06:59; Status DC Prochlorperazine Edisylate (Compazine) 5 mg PACU PRN PRN IV NAUSEA, MRX1; Start 07/25/19 at 07:00; Stop 07/26/19 at 06:59; Status DC Sodium Chloride 1,000 ml @ 1,000 mls/hr Q1H PRN IV hypotension; Start 07/23/19 at 09:10; Stop 07/23/19 at 15:09; Status DC Albumin Human 200 ml @ 200 mls/hr 1X PRN PRN IV Hypotension Last administered on 07/23/19at 10:10; Start 07/23/19 at 09:15; Stop 07/23/19 at 15:14; Status DC Sodium Chloride 1,000 ml @ 400 mls/hr Q2H30M PRN IV PATENCY; Start 07/23/19 at 09:10; Stop 07/23/19 at 21:09; Status DC Info (PHARMACY MONITORING -- do not chart) 1 each PRN DAILY PRN MC SEE COMMENTS; Start 07/23/19 at 09:15; Stop 07/24/19 at 12:45; Status DC Info (PHARMACY MONITORING -- do not chart) 1 each PRN DAILY PRN MC SEE COMMENTS; Start 07/23/19 at 09:15; Stop 07/24/19 at 12:45; Status DC Sodium Chloride 90 meq/Potassium Chloride 15 meq/ Potassium Phosphate 10 mmol/ Magnesium Sulfate 8 meq/Calcium Gluconate 15 meq/ Multivitamins 10 ml/Chromium/ Copper/Manganese/ Seleni/Zn 0.5 ml/ Insulin Human Regular 25 unit/ Total Parenteral Nutrition/Amino Acids/Dextrose/ Fat Emulsion Intravenous 1,400 ml @ 58.333 mls/ hr TPN CONT IV Last administered on 07/23/19at 22:10; Start 07/23/19 at 22:00; Stop 07/24/19 at 21:59; Status DC Magnesium Sulfate 50 ml @ 25 mls/hr PRN DAILY PRN IV for Mag < 1.7 on am labs Last administered on 10/06/19at 10:57; Start 07/24/19 at 09:15 Sodium Chloride 90 meq/Potassium Chloride 15 meq/ Potassium Phosphate 10 mmol/ Magnesium Sulfate 8 meq/Calcium Gluconate 15 meq/ Multivitamins 10 ml/Chromium/ Copper/Manganese/ Seleni/Zn 0.5 ml/ Insulin Human Regular 25 unit/ Total Parenteral Nutrition/Amino Acids/Dextrose/ Fat Emulsion Intravenous 1,400 ml @ 58.333 mls/ hr TPN CONT IV Last administered on 07/24/19at 21:20; Start 07/24/19 at 22:00; Stop 07/25/19 at 21:59; Status DC Sodium Chloride 1,000 ml @ 1,000 mls/hr Q1H PRN IV hypotension; Start 07/24/19 at 12:23; Stop 07/24/19 at 18:22; Status DC Albumin Human 200 ml @ 200 mls/hr 1X ONCE IV Last administered on 07/24/19at 13:34; Start 07/24/19 at 12:30; Stop 07/24/19 at 13:29; Status DC Diphenhydramine HCl (Benadryl) 25 mg 1X PRN PRN IV ITCHING; Start 07/24/19 at 12:30; Stop 07/25/19 at 12:29; Status DC Diphenhydramine HCl (Benadryl) 25 mg 1X PRN PRN IV ITCHING; Start 07/24/19 at 12:30; Stop 07/25/19 at 12:29; Status DC Info (PHARMACY MONITORING -- do not chart) 1 each PRN DAILY PRN MC SEE COMMENTS; Start 07/24/19 at 12:30; Status Cancel Bupivacaine HCl/ Epinephrine Bitart (Sensorcain-Epi 0.5%-1:[id number] Mpf) 30 ml STK-MED ONCE .ROUTE Last administered on 07/25/19at 11:44; Start 07/25/19 at 11:00; Stop 07/25/19 at 11:01; Status DC Cellulose (Surgicel Fibrillar 1x2) 1 each STK-MED ONCE .ROUTE ; Start 07/25/19 at 11:00; Stop 07/25/19 at 11:01; Status DC Sodium Chloride 90 meq/Potassium Chloride 15 meq/ Potassium Phosphate 10 mmol/ Magnesium Sulfate 12 meq/Calcium Gluconate 15 meq/ Multivitamins 10 ml/Chromium/ Copper/Manganese/ Seleni/Zn 0.5 ml/ Insulin Human Regular 25 unit/ Total Parenteral Nutrition/Amino Acids/Dextrose/ Fat Emulsion Intravenous 1,400 ml @ 58.333 mls/ hr TPN CONT IV Last administered on 07/25/19at 22:24; Start 07/25/19 at 22:00; Stop 07/26/19 at 21:59; Status DC Propofol 20 ml @ As Directed STK-MED ONCE IV ; Start 07/25/19 at 11:07; Stop 07/25/19 at 11:07; Status DC Cellulose (Surgicel Hemostat 4x8) 1 each STK-MED ONCE .ROUTE Last administered on 07/25/19at 11:44; Start 07/25/19 at 11:55; Stop 07/25/19 at 11:56; Status DC Sevoflurane (Ultane) 60 ml STK-MED ONCE IH ; Start 07/25/19 at 12:46; Stop 07/25/19 at 12:46; Status DC Sodium Chloride 1,000 ml @ 1,000 mls/hr Q1H PRN IV hypotension; Start 07/25/19 at 13:51; Stop 07/25/19 at 19:50; Status DC Albumin Human 200 ml @ 200 mls/hr 1X PRN PRN IV Hypotension Last administered on 07/25/19at 14:51; Start 07/25/19 at 14:00; Stop 07/25/19 at 19:59; Status DC Diphenhydramine HCl (Benadryl) 25 mg 1X PRN PRN IV ITCHING; Start 07/25/19 at 14:00; Stop 07/26/19 at 13:59; Status DC Diphenhydramine HCl (Benadryl) 25 mg 1X PRN PRN IV ITCHING; Start 07/25/19 at 14:00; Stop 07/26/19 at 13:59; Status DC Sodium Chloride 1,000 ml @ 400 mls/hr Q2H30M PRN IV PATENCY; Start 07/25/19 at 13:51; Stop 07/26/19 at 01:50; Status DC Info (PHARMACY MONITORING -- do not chart) 1 each PRN DAILY PRN MC SEE COMMENTS; Start 07/25/19 at 14:00; Stop 07/28/19 at 08:16; Status DC Heparin Sodium (Porcine) (Hep Lock Adult) 500 unit STK-MED ONCE IVP ; Start 07/26/19 at 09:29; Stop 07/26/19 at 09:30; Status DC Sodium Chloride 1,000 ml @ 1,000 mls/hr Q1H PRN IV hypotension; Start 07/26/19 at 10:43; Stop 07/26/19 at 16:42; Status DC Sodium Chloride 1,000 ml @ 400 mls/hr Q2H30M PRN IV PATENCY; Start 07/26/19 at 10:43; Stop 07/26/19 at 22:42; Status DC Info (PHARMACY MONITORING -- do not chart) 1 each PRN DAILY PRN MC SEE COMMENTS; Start 07/26/19 at 10:45; Status UNV Info (PHARMACY MONITORING -- do not chart) 1 each PRN DAILY PRN MC SEE COMMENTS; Start 07/26/19 at 10:45; Status UNV Sodium Chloride 90 meq/Potassium Chloride 15 meq/ Magnesium Sulfate 12 meq/Calcium Gluconate 15 meq/ Multivitamins 10 ml/Chromium/ Copper/Manganese/ Seleni/Zn 0.5 ml/ Insulin Human Regular 25 unit/ Total Parenteral Nutrition/Amino Acids/Dextrose/ Fat Emulsion Intravenous 1,400 ml @ 58.333 mls/ hr TPN CONT IV Last administered on 07/26/19at 22:13; Start 07/26/19 at 22:00; Stop 07/27/19 at 21:59; Status DC Sodium Chloride 1,000 ml @ 1,000 mls/hr Q1H PRN IV hypotension; Start 07/27/19 at 07:50; Stop 07/27/19 at 13:49; Status DC Albumin Human 200 ml @ 200 mls/hr 1X ONCE IV ; Start 07/27/19 at 08:00; Stop 07/27/19 at 08:53; Status DC Diphenhydramine HCl (Benadryl) 25 mg 1X PRN PRN IV ITCHING; Start 07/27/19 at 08:00; Stop 07/28/19 at 07:59; Status DC Diphenhydramine HCl (Benadryl) 25 mg 1X PRN PRN IV ITCHING; Start 07/27/19 at 08:00; Stop 07/28/19 at 07:59; Status DC Info (PHARMACY MONITORING -- do not chart) 1 each PRN DAILY PRN MC SEE C OMMENTS; Start 07/27/19 at 08:00; Stop 07/28/19 at 08:16; Status DC Albumin Human 50 ml @ 50 mls/hr 1X ONCE IV ; Start 07/27/19 at 08:53; Stop 07/27/19 at 08:56; Status DC Albumin Human 200 ml @ 50 mls/hr PRN 1X PRN IV HYPOTENSION Last administered on 08/02/19at 11:54; Start 07/27/19 at 09:00; Stop 09/08/19 at 11:14; Status DC Meropenem 500 mg/ Sodium Chloride 50 ml @ 100 mls/hr Q12H IV Last administered on 08/16/19at 10:45; Start 07/27/19 at 10:00; Stop 08/16/19 at 12:37; Status DC Sodium Chloride 90 meq/Magnesium Sulfate 12 meq/ Calcium Gluconate 15 meq/ Multivitamins 10 ml/Chromium/ Copper/Manganese/ Seleni/Zn 0.5 ml/ Insulin Human Regular 25 unit/ Total Parenteral Nutrition/Amino Acids/Dextrose/ Fat Emulsion Intravenous 1,400 ml @ 58.333 mls/ hr TPN CONT IV Last administered on 07/27/19at 21:41; Start 07/27/19 at 22:00; Stop 07/28/19 at 21:59; Status DC Sodium Chloride 1,000 ml @ 1,000 mls/hr Q1H PRN IV hypotension; Start 07/28/19 at 07:58; Stop 07/28/19 at 13:57; Status DC Albumin Human 200 ml @ 200 mls/hr 1X PRN PRN IV Hypotension Last administered on 07/28/19at 09:30; Start 07/28/19 at 08:00; Stop 07/28/19 at 13:59; Status DC Sodium Chloride 1,000 ml @ 400 mls/hr Q2H30M PRN IV PATENCY; Start 07/28/19 at 07:58; Stop 07/28/19 at 19:57; Status DC Info (PHARMACY MONITORING -- do not chart) 1 each PRN DAILY PRN MC SEE COMMENTS; Start 07/28/19 at 08:00; Status Cancel Info (PHARMACY MONITORING -- do not chart) 1 each PRN DAILY PRN MC SEE COMMENTS; Start 07/28/19 at 08:15; Status UNV Sodium Chloride 90 meq/Potassium Phosphate 5 mmol/ Magnesium Sulfate 12 meq/Calcium Gluconate 15 meq/ Multivitamins 10 ml/Chromium/ Copper/Manganese/ Seleni/Zn 0.5 ml/ Insulin Human Regular 30 unit/ Total Parenteral Nutrition/Amino Acids/Dextrose/ Fat Emulsion Intravenous 1,400 ml @ 58.333 mls/ hr TPN CONT IV Last administered on 07/28/19at 22:08; Start 07/28/19 at 22:00; Stop 07/29/19 at 21:59; Status DC Linezolid/Dextrose 300 ml @ 300 mls/hr Q12HR IV Last administered on 08/08/19at 20:40; Start 07/29/19 at 11:00; Stop 08/09/19 at 08:10; Status DC Sodium Chloride 90 meq/Potassium Phosphate 15 mmol/ Magnesium Sulfate 12 meq/Calcium Gluconate 15 meq/ Multivitamins 10 ml/Chromium/ Copper/Manganese/ Seleni/Zn 0.5 ml/ Insulin Human Regular 30 unit/ Total Parenteral Nutrition/Amino Acids/Dextrose/ Fat Emulsion Intravenous 1,400 ml @ 58.333 mls/ hr TPN CONT IV Last administered on 07/29/19at 21:49; Start 07/29/19 at 22:00; Stop 07/30/19 at 21:59; Status DC Sodium Chloride 90 meq/Potassium Phosphate 15 mmol/ Magnesium Sulfate 12 meq/Ca lcium Gluconate 15 meq/ Multivitamins 10 ml/Chromium/ Copper/Manganese/ Seleni/Zn 0.5 ml/ Insulin Human Regular 40 unit/ Total Parenteral Nutrition/Amino Acids/Dextrose/ Fat Emulsion Intravenous 1,400 ml @ 58.333 mls/ hr TPN CONT IV Last administered on 07/30/19at 21:21; Start 07/30/19 at 22:00; Stop 07/31/19 at 21:59; Status DC Sodium Chloride 1,000 ml @ 1,000 mls/hr Q1H PRN IV hypotension; Start 07/30/19 at 13:26; Stop 07/30/19 at 19:25; Status DC Albumin Human 200 ml @ 200 mls/hr 1X PRN PRN IV Hypotension Last administered on 07/30/19at 15:00; Start 07/30/19 at 13:30; Stop 07/30/19 at 19:29; Status DC Sodium Chloride (Normal Saline Flush) 10 ml 1X PRN PRN IV AP catheter pack; Start 07/30/19 at 13:30; Stop 07/31/19 at 13:29; Status DC Sodium Chloride (Normal Saline Flush) 10 ml 1X PRN PRN IV 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; Start 07/30/19 at 13:30; Stop 07/31/19 at 13:29; Status DC Sodium Chloride 1,000 ml @ 400 mls/hr Q2H30M PRN IV PATENCY; Start 07/30/19 at 13:26; Stop 07/31/19 at 01:25; Status DC Info (PHARMACY MONITORING -- do not chart) 1 each PRN DAILY PRN MC SEE COMMENTS; Start 07/30/19 at 13:30; Stop 07/30/19 at 13:33; Status DC Info (PHARMACY MONITORING -- do not chart) 1 each PRN DAILY PRN MC SEE COMMENTS; Start 07/30/19 at 13:30; Stop 07/30/19 at 13:34; Status DC Sodium Chloride 90 meq/Potassium Phosphate 19 mmol/ Magnesium Sulfate 12 meq/Calcium Gluconate 15 meq/ Multivitamins 10 ml/Chromium/ Copper/Manganese/ Seleni/Zn 0.5 ml/ Insulin Human Regular 40 unit/ Total Parenteral Nutrition/Amino Acids/Dextrose/ Fat Emulsion Intravenous 1,400 ml @ 58.333 mls/ hr TPN CONT IV Last administered on 07/31/19at 21:54; Start 07/31/19 at 22:00; Stop 08/01/19 at 21:59; Status DC Sodium Chloride 1,000 ml @ 1,000 mls/hr Q1H PRN IV hypotension; Start 08/01/19 at 09:35; Stop 08/01/19 at 15:34; Status DC Albumin Human 200 ml @ 200 mls/hr 1X PRN PRN IV Hypotension; Start 08/01/19 at 09:45; Stop 08/01/19 at 15:44; Status DC Diphenhydramine HCl (Benadryl) 25 mg 1X PRN PRN IV ITCHING; Start 08/01/19 at 09:45; Stop 08/02/19 at 09:44; Status DC Diphenhydramine HCl (Benadryl) 25 mg 1X PRN PRN IV ITCHING; Start 08/01/19 at 09:45; Stop 08/02/19 at 09:44; Status DC Sodium Chloride 1,000 ml @ 400 mls/hr Q2H30M PRN IV PATENCY; Start 08/01/19 at 09:35; Stop 08/01/19 at 21:34; Status DC Info (PHARMACY MONITORING -- do not chart) 1 each PRN DAILY PRN MC SEE COMMENTS; Start 08/01/19 at 09:45; Status Cancel Sodium Chloride 100 meq/Potassium Phosphate 19 mmol/ Magnesium Sulfate 12 meq/Calcium Gluconate 15 meq/ Multivitamins 10 ml/Chromium/ Copper/Manganese/ Seleni/Zn 0.5 ml/ Insulin Human Regular 40 unit/ Potassium Chloride 20 meq/ Total Parenteral Nutrition/Amino Acids/Dextrose/ Fat Emulsion Intravenous 1,400 ml @ 58.333 mls/ hr TPN CONT IV Last administered on 08/01/19at 22:02; Start 08/01/19 at 22:00; Stop 08/02/19 at 21:59; Status DC Furosemide (Lasix) 40 mg 1X ONCE IVP Last administered on 08/01/19at 14:39; Start 08/01/19 at 14:30; Stop 08/01/19 at 14:31; Status DC Metronidazole 100 ml @ 100 mls/hr Q8HRS IV Last administered on 08/09/19at 06:04; Start 08/02/19 at 10:00; Stop 08/09/19 at 08:10; Status DC Sodium Chloride 1,000 ml @ 1,000 mls/hr Q1H PRN IV hypotension; Start 08/02/19 at 08:00; Stop 08/02/19 at 13:59; Status DC Albumin Human 200 ml @ 200 mls/hr 1X PRN PRN IV Hypotension; Start 08/02/19 at 08:00; Stop 08/02/19 at 13:59; Status DC Sodium Chloride 1,000 ml @ 400 mls/hr Q2H30M PRN IV PATENCY; Start 08/02/19 at 08:00; Stop 08/02/19 at 19:59; Status DC Info (PHARMACY MONITORING -- do not chart) 1 each PRN DAILY PRN MC SEE COMMENTS; Start 08/02/19 at 11:30; Status UNV Info (PHARMACY MONITORING -- do not chart) 1 each PRN DAILY PRN MC SEE COMMENTS; Start 08/02/19 at 11:30; Stop 08/04/19 at 12:13; Status DC Sodium Chloride 100 meq/Potassium Phosphate 19 mmol/ Magnesium Sulfate 12 meq/Calcium Gluconate 15 meq/ Multivitamins 10 ml/Chromium/ Copper/Manganese/ Seleni/Zn 0.5 ml/ Insulin Human Regular 40 unit/ Potassium Chloride 20 meq/ Total Parenteral Nutrition/Amino Acids/Dextrose/ Fat Emulsion Intravenous 1,400 ml @ 58.333 mls/ hr TPN CONT IV Last administered on 08/02/19at 21:52; Start 08/02/19 at 22:00; Stop 08/03/19 at 21:59; Status DC Sodium Chloride (Normal Saline Flush) 10 ml QSHIFT PRN IV AFTER MEDS AND BLOOD DRAWS; Start 08/02/19 at 15:00; Stop 08/30/19 at 11:27; Status DC Sodium Chloride (Normal Saline Flush) 10 ml PRN Q5MIN PRN IV AFTER MEDS AND BLOOD DRAWS; Start 08/02/19 at 15:00; Stop 11/19/19 at 10:12; Status DC Sodium Chloride (Normal Saline Flush) 20 ml PRN Q5MIN PRN IV AFTER MEDS AND BLOOD DRAWS; Start 08/02/19 at 15:00 Sodium Chloride 100 meq/Potassium Phosphate 19 mmol/ Magnesium Sulfate 12 meq/Calcium Gluconate 15 meq/ Multivitamins 10 ml/Chromium/ Copper/Manganese/ Seleni/Zn 0.5 ml/ Insulin Human Regular 40 unit/ Potassium Chloride 20 meq/ Total Parenteral Nutrition/Amino Acids/Dextrose/ Fat Emulsion Intravenous 1,400 ml @ 58.333 mls/ hr TPN CONT IV Last administered on 08/03/19at 21:20; Start 08/03/19 at 22:00; Stop 08/04/19 at 21:59; Status DC Lidocaine HCl (Buffered Lidocaine 1%) 3 ml STK-MED ONCE .ROUTE ; Start 08/03/19 at 13:16; Stop 08/03/19 at 13:16; Status DC Lidocaine HCl (Buffered Lidocaine 1%) 6 ml 1X ONCE INJ Last administered on 08/03/19at 13:45; Start 08/03/19 at 13:30; Stop 08/03/19 at 13:31; Status DC Albumin Human 100 ml @ 100 mls/hr 1X ONCE IV Last administered on 08/03/19at 15:41; Start 08/03/19 at 15:00; Stop 08/03/19 at 15:59; Status DC Albumin Human 50 ml @ 50 mls/hr 1X ONCE IV Last administered on 08/03/19at 15:00; Start 08/03/19 at 15:00; Stop 08/03/19 at 15:59; Status DC Info (PHARMACY MONITORING -- do not chart) 1 each PRN DAILY PRN MC SEE COMMENTS; Start 08/04/19 at 11:30; Status Cancel Info (PHARMACY MONITORING -- do not chart) 1 each PRN DAILY PRN MC SEE COMMENTS; Start 08/04/19 at 11:30; Status UNV Sodium Chloride 100 meq/Potassium Phosphate 10 mmol/ Magnesium Sulfate 12 meq/Calcium Gluconate 15 meq/ Multivitamins 10 ml/Chromium/ Copper/Manganese/ Seleni/Zn 0.5 ml/ Insulin Human Regular 35 unit/ Potassium Chloride 20 meq/ Total Parenteral Nutrition/Amino Acids/Dextrose/ Fat Emulsion Intravenous 1,400 ml @ 58.333 mls/ hr TPN CONT IV Last administered on 08/04/19at 22:10; Start 08/04/19 at 22:00; Stop 08/05/19 at 21:59; Status DC Sodium Chloride 100 meq/Potassium Phosphate 5 mmol/ Magnesium Sulfate 12 meq/Calcium Gluconate 15 meq/ Multivitamins 10 ml/Chromium/ Copper/Manganese/ Seleni/Zn 0.5 ml/ Insulin Human Regular 35 unit/ Potassium Chloride 20 meq/ Total Parenteral Nutrition/Amino Acids/Dextrose/ Fat Emulsion Intravenous 1,400 ml @ 58.333 mls/ hr TPN CONT IV Last administered on 08/05/19at 22:59; Start 08/05/19 at 22:00; Stop 08/06/19 at 21:59; Status DC Sodium Chloride 1,000 ml @ 1,000 mls/hr Q1H PRN IV hypotension; Start 08/06/19 at 08:27; Stop 08/06/19 at 14:26; Status DC Albumin Human 200 ml @ 200 mls/hr 1X PRN PRN IV Hypotension Last administered on 08/06/19at 09:18; Start 08/06/19 at 08:30; Stop 08/06/19 at 14:29; Status DC Sodium Chloride 1,000 ml @ 400 mls/hr [id number] PRN IV PATENCY; Start 08/06/19 at 08:27; Stop 08/06/19 at 20:26; Status DC Info (PHARMACY MONITORING -- do not chart) 1 each PRN DAILY PRN MC SEE COMMENTS; Start 08/06/19 at 08:30; Status Cancel Info (PHARMACY MONITORING -- do not chart) 1 each PRN DAILY PRN MC SEE COMMENTS; Start 08/06/19 at 08:30; Stop 08/14/19 at 13:10; Status DC Sodium Chloride 100 meq/Potassium Chloride 40 meq/ Magnesium Sulfate 15 meq/Calcium Gluconate 15 meq/ Multivitamins 10 ml/Chromium/ Copper/Manganese/ Seleni/Zn 0.5 ml/ Insulin Human Regular 35 unit/ Total Parenteral Nutrition/Am tristen Acids/Dextrose/ Fat Emulsion Intravenous 1,400 ml @ 58.333 mls/ hr TPN CONT IV Last administered on 08/06/19at 22:00; Start 08/06/19 at 22:00; Stop 08/07/19 at 21:59; Status DC Potassium Chloride/Water 100 ml @ 100 mls/hr 1X ONCE IV Last administered on 08/06/19at 17:28; Start 08/06/19 at 14:45; Stop 08/06/19 at 15:44; Status DC Sodium Chloride 100 meq/Potassium Chloride 40 meq/ Magnesium Sulfate 15 meq/Calcium Gluconate 15 meq/ Multivitamins 10 ml/Chromium/ Copper/Manganese/ Seleni/Zn 0.5 ml/ Insulin Human Regular 35 unit/ Total Parenteral Nutrition/Amino Acids/Dextrose/ Fat Emulsion Intravenous 1,400 ml @ 58.333 mls/ hr TPN CONT IV Last administered on 08/07/19at 22:46; Start 08/07/19 at 22:00; Stop 08/08/19 at 21:59; Status DC Sodium Chloride 100 meq/Potassium Chloride 40 meq/ Magnesium Sulfate 20 meq/Calcium Gluconate 15 meq/ Multivitamins 10 ml/Chromium/ Copper/Manganese/ Seleni/Zn 0.5 ml/ Insulin Human Regular 35 unit/ Total Parenteral Nutrition/Amino Acids/Dextrose/ Fat Emulsion Intravenous 1,400 ml @ 58.333 mls/ hr TPN CONT IV Last administered on 08/08/19at 22:31; Start 08/08/19 at 22:00; Stop 08/09/19 at 21:59; Status DC Fentanyl Citrate (Fentanyl 2ml Vial) 50 mcg PRN Q2HR PRN IVP PAIN Last administered on 08/15/19at 13:32; Start 08/08/19 at 21:00; Stop 08/16/19 at 12:53; Status DC Fentanyl Citrate (Fentanyl 2ml Vial) 25 mcg PRN Q2HR PRN IVP PAIN; Start 07/20 at 21:00; Stop 08/16/19 at 12:54; Status DC Enoxaparin Sodium (Lovenox 100mg Syringe) 100 mg Q12HR SQ ; Start 08/09/19 at 21:00; Status UNV Amino Acids/ Glycerin/ Electrolytes 1,000 ml @ 75 mls/hr [id number] IV ; Start 08/08/19 at 21:15; Status UNV Sodium Chloride 1,000 ml @ 1,000 mls/hr Q1H PRN IV hypotension; Start 08/09/19 at 07:56; Stop 08/09/19 at 13:55; Status DC Albumin Human 200 ml @ 200 mls/hr 1X PRN PRN IV Hypotension Last administered on 08/09/19at 08:40; Start 08/09/19 at 08:00; Stop 08/09/19 at 13:59; Status DC Sodium Chloride 1,000 ml @ 400 mls/hr Q2H30M PRN IV PATENCY; Start 08/09/19 at 07:56; Stop 08/09/19 at 19:55; Status DC Info (PHARMACY MONITORING -- do not chart) 1 each PRN DAILY PRN MC SEE COMMENTS; Start 08/09/19 at 08:00; Status UNV Info (PHARMACY MONITORING -- do not chart) 1 each PRN DAILY PRN MC SEE COMMENTS; Start 08/09/19 at 08:00; Status UNV Daptomycin 430 mg/ Sodium Chloride 50 ml @ 100 mls/hr Q24H IV Last administered on 08/09/19at 12:35; Start 08/09/19 at 09:00; Stop 08/09/19 at 12:49; Status DC Sodium Chloride 100 meq/Potassium Chloride 40 meq/ Magnesium Sulfate 20 meq/Calcium Gluconate 15 meq/ Multivitamins 10 ml/Chromium/ Copper/Manganese/ Seleni/Zn 0.5 ml/ Insulin Human Regular 35 unit/ Total Parenteral Nu trition/Amino Acids/Dextrose/ Fat Emulsion Intravenous 1,400 ml @ 58.333 mls/ hr TPN CONT IV Last administered on 08/09/19at 21:26; Start 08/09/19 at 22:00; Stop 08/10/19 at 21:59; Status DC Daptomycin 430 mg/ Sodium Chloride 50 ml @ 100 mls/hr Q48H IV ; Start 08/11/19 at 09:00; Stop 08/10/19 at 11:55; Status DC Sodium Chloride 100 meq/Potassium Chloride 40 meq/ Magnesium Sulfate 20 meq/Calcium Gluconate 15 meq/ Multivitamins 10 ml/Chromium/ Copper/Manganese/ Seleni/Zn 0.5 ml/ Insulin Human Regular 35 unit/ Total Parenteral Nutrition/Amino Acids/Dextrose/ Fat Emulsion Intravenous 1,400 ml @ 58.333 mls/ hr TPN CONT IV Last administered on 08/10/19at 22:27; Start 08/10/19 at 22:00; Stop 08/11/19 at 21:59; Status DC Daptomycin 430 mg/ Sodium Chloride 50 ml @ 100 mls/hr Q24H IV Last administered on 08/12/19at 15:07; Start 08/10/19 at 13:00; Stop 08/13/19 at 13:15; Status DC Sodium Chloride 100 meq/Potassium Chloride 40 meq/ Magnesium Sulfate 20 meq/Calcium Gluconate 10 meq/ Multivitamins 10 ml/Chromium/ Copper/Manganese/ Seleni/Zn 0.5 ml/ Insulin Human Regular 35 unit/ Total Parenteral Nutrition/Amino Acids/Dextrose/ Fat Emulsion Intravenous 1,400 ml @ 58.333 mls/ hr TPN CONT IV Last administered on 08/12/19at 00:06; Start 08/11/19 at 22:00; Stop 08/12/19 at 21:59; Status DC Alteplase, Recombinant (Cathflo For Central Catheter Clearance) 1 mg 1X ONCE INT CAT Last administered on 08/12/19at 11:44; Start 08/12/19 at 10:45; Stop 08/12/19 at 10:46; Status DC Ondansetron HCl (Zofran) 4 mg PRN Q6HRS PRN IV NAUSEA/VOMITING; Start 08/15/19 at 07:00; Stop 08/16/19 at 06:59; Status DC Fentanyl Citrate (Fentanyl 2ml Vial) 25 mcg PRN Q5MIN PRN IV MILD PAIN 1-3; Start 08/15/19 at 07:00; Stop 08/16/19 at 06:59; Status DC Fentanyl Citrate (Fentanyl 2ml Vial) 50 mcg PRN Q5MIN PRN IV MODERATE TO SEVERE PAIN Last administered on 08/15/19at 10:17; Start 08/15/19 at 07:00; Stop 08/16/19 at 06:59; Status DC Ringer's Solution 1,000 ml @ 30 mls/hr Q24H IV ; Start 08/15/19 at 07:00; Stop 08/15/19 at 18:59; Status DC Lidocaine HCl (Xylocaine-Mpf 1% 2ml Vial) 2 ml PRN 1X PRN ID PRIOR TO IV START; Start 08/15/19 at 07:00; Stop 08/16/19 at 06:59; Status DC Prochlorperazine Edisylate (Compazine) 5 mg PACU PRN PRN IV NAUSEA, MRX1; Start 08/15/19 at 07:00; Stop 08/16/19 at 06:59; Status DC Sodium Acetate 50 meq/Potassium Acetate 55 meq/ Magnesium Sulfate 20 meq/Calcium Gluconate 10 meq/ Multivitamins 10 ml/Chromium/ Copper/Manganese/ Seleni/Zn 0.5 ml/ Insulin Human Regular 35 unit/ Total Parenteral Nutrition/Amino Acids/Dex trose/ Fat Emulsion Intravenous 1,400 ml @ 58.333 mls/ hr TPN CONT IV ; Start 08/12/19 at 22:00; Stop 08/12/19 at 14:15; Status DC Sodium Acetate 50 meq/Potassium Acetate 55 meq/ Magnesium Sulfate 20 meq/Calcium Gluconate 10 meq/ Multivitamins 10 ml/Chromium/ Copper/Manganese/ Seleni/Zn 0.5 ml/ Insulin Human Regular 35 unit/ Total Parenteral Nutrition/Amino Acids/Dextrose/ Fat Emulsion Intravenous 1,800 ml @ 75 mls/hr TPN CONT IV Last administered on 08/12/19at 22:38; Start 08/12/19 at 22:00; Stop 08/13/19 at 21:59; Status DC Sodium Chloride 1,000 ml @ 1,000 mls/hr Q1H PRN IV hypotension; Start 08/12/19 at 15:31; Stop 08/12/19 at 21:30; Status DC Diphenhydramine HCl (Benadryl) 25 mg 1X PRN PRN IV ITCHING; Start 08/12/19 at 15:45; Stop 08/13/19 at 15:44; Status DC Diphenhydramine HCl (Benadryl) 25 mg 1X PRN PRN IV ITCHING; Start 08/12/19 at 15:45; Stop 08/13/19 at 15:44; Status DC Sodium Chloride 1,000 ml @ 400 mls/hr Q2H30M PRN IV PATENCY; Start 08/12/19 at 15:31; Stop 08/13/19 at 03:30; Status DC Info (PHARMACY MONITORING -- do not chart) 1 each PRN DAILY PRN MC SEE COMMENTS; Start 08/12/19 at 15:45; Stop 09/13/19 at 14:14; Status DC Sodium Acetate 50 meq/Potassium Acetate 55 meq/ Magnesium Sulfate 20 meq/Calcium Gluconate 10 meq/ Multivitamins 10 ml/Chromium/ Copper/Manganese/ Seleni/Zn 0.5 ml/ Insulin Human Regular 35 unit/ Total Parenteral Nutrition/Amino Acids/Dext amarilis/ Fat Emulsion Intravenous 1,800 ml @ 75 mls/hr TPN CONT IV Last administered on 08/13/19at 22:03; Start 08/13/19 at 22:00; Stop 08/14/19 at 21:59; Status DC Daptomycin 430 mg/ Sodium Chloride 50 ml @ 100 mls/hr Q24H IV Last administered on 08/18/19at 13:00; Start 08/13/19 at 13:00; Stop 08/18/19 at 20:58; Status DC Heparin Sodium (Porcine) 1000 unit/Sodium Chloride 1,001 ml @ 1,001 mls/hr 1X ONCE IRR ; Start 08/15/19 at 06:00; Stop 08/15/19 at 06:59; Status DC Potassium Acetate 55 meq/Magnesium Sulfate 20 meq/ Calcium Gluconate 10 meq/ Multivitamins 10 ml/Chromium/ Copper/Manganese/ Seleni/Zn 0.5 ml/ Insulin Human Regular 35 unit/ Total Parenteral Nutrition/Amino Acids/Dextrose/ Fat Emulsion Intravenous 1,920 ml @ 80 mls/hr TPN CONT IV Last administered on 08/14/19at 22:10; Start 08/14/19 at 22:00; Stop 08/15/19 at 21:59; Status DC Dexamethasone Sodium Phosphate (Decadron) 4 mg STK-MED ONCE .ROUTE ; Start 08/15/19 at 10:56; Stop 08/15/19 at 10:57; Status DC Ondansetron HCl (Zofran) 4 mg STK-MED ONCE .ROUTE ; Start 08/15/19 at 10:56; Stop 08/15/19 at 10:57; Status DC Rocuronium Crete (Zemuron) 50 mg STK-MED ONCE .ROUTE ; Start 08/15/19 at 10:56; Stop 08/15/19 at 10:57; Status DC Fentanyl Citrate (Fentanyl 2ml Vial) 100 mcg STK-MED ONCE .ROUTE ; Start 08/15/19 at 10:56; Stop 08/15/19 at 10:57; Status DC Bupivacaine HCl/ Epinephrine Bitart (Sensorcain-Epi 0.5%-1:778703 Mpf) 30 ml STK-MED ONCE .ROUTE Last administered on 08/15/19at 12:01; Start 08/15/19 at 10:58; Stop 08/15/19 at 10:58; Status DC Cellulose (Surgicel Hemostat 2x14) 1 each STK-MED ONCE .ROUTE ; Start 08/15/19 at 10:58; Stop 08/15/19 at 10:59; Status DC Iohexol (Omnipaque 300 Mg/ml) 50 ml STK-MED ONCE .ROUTE ; Start 08/15/19 at 10:58; Stop 08/15/19 at 10:59; Status DC Cellulose (Surgicel Hemostat 4x8) 1 each STK-MED ONCE .ROUTE ; Start 08/15/19 at 10:58; Stop 08/15/19 at 10:59; Status DC Bisacodyl (Dulcolax Supp) 10 mg STK-MED ONCE .ROUTE ; Start 08/15/19 at 10:59; Stop 08/15/19 at 10:59; Status DC Heparin Sodium (Porcine) 1000 unit/Sodium Chloride 1,001 ml @ 1,001 mls/hr 1X ONCE IRR ; Start 08/15/19 at 12:00; Stop 08/15/19 at 12:59; Status DC Propofol 20 ml @ As Directed STK-MED ONCE IV ; Start 08/15/19 at 11:05; Stop 08/15/19 at 11:05; Status DC Sevoflurane (Ultane) 90 ml STK-MED ONCE IH ; Start 08/15/19 at 11:05; Stop 08/15/19 at 11:05; Status DC Sevoflurane (Ultane) 60 ml STK-MED ONCE IH ; Start 08/15/19 at 12:26; Stop 08/15/19 at 12:27; Status DC Propofol 20 ml @ As Directed STK-MED ONCE IV ; Start 08/15/19 at 12:26; Stop 08/15/19 at 12:27; Status DC Phenylephrine HCl (PHENYLEPHRINE in 0.9% NACL PF) 1 mg STK-MED ONCE IV ; Start 08/15/19 at 12:34; Stop 08/15/19 at 12:34; Status DC Heparin Sodium (Porcine) (Heparin Sodium) 5,000 unit Q12HR SQ Last administered on 08/24/19at 20:57; Start 08/15/19 at 21:00; Stop 08/25/19 at 09:59; Status DC Sodium Chloride (Normal Saline Flush) 3 ml QSHIFT PRN IV AFTER MEDS AND BLOOD DRAWS; Start 08/15/19 at 13:45; Status Cancel Naloxone HCl (Narcan) 0.4 mg PRN Q2MIN PRN IV SEE INSTRUCTIONS Last administered on 09/24/19at 15:15; Start 08/15/19 at 13:45; Stop 10/19/19 at 16:00; Status DC Sodium Chloride 1,000 ml @ 25 mls/hr Q24H IV Last administered on 09/13/19at 13:37; Start 08/15/19 at 13:37; Stop 09/16/19 at 13:09; Status DC Naloxone HCl (Narcan) 0.4 mg PRN Q2MIN PRN IV SEE INSTRUCTIONS; Start 08/15/19 at 14:30; Status UNV Sodium Chloride 1,000 ml @ 25 mls/hr Q24H IV ; Start 08/15/19 at 14:30; Status UNV Hydromorphone HCl 30 ml @ 0 mls/hr CONT PRN PRN IV PER PROTOCOL Last administe red on 08/20/19at 16:08; Start 08/15/19 at 14:30; Stop 08/22/19 at 08:55; Status DC Potassium Acetate 55 meq/Magnesium Sulfate 20 meq/ Calcium Gluconate 10 meq/ Multivitamins 10 ml/Chromium/ Copper/Manganese/ Seleni/Zn 0.5 ml/ Insulin Human Regular 35 unit/ Total Parenteral Nutrition/Amino Acids/Dextrose/ Fat Emulsion Intravenous 1,920 ml @ 80 mls/hr TPN CONT IV Last administered on 08/15/19at 22:01; Start 08/15/19 at 22:00; Stop 08/16/19 at 21:59; Status DC Bumetanide (Bumex) 2 mg [id number] IV Last administered on 08/19/19at 13:50; Start 08/16/19 at 14:00; Stop 08/20/19 at 14:10; Status DC Meropenem 1 gm/ Sodium Chloride 100 ml @ 200 mls/hr Q8HRS IV Last administered on 09/09/19at 05:53; Start 08/16/19 at 14:00; Stop 09/09/19 at 09:31; Status DC Potassium Acetate 55 meq/Magnesium Sulfate 20 meq/ Calcium Gluconate 10 meq/ Multivitamins 10 ml/Chromium/ Copper/Manganese/ Seleni/Zn 0.5 ml/ Insulin Human Regular 35 unit/ Total Parenteral Nutrition/Amino Acids/Dextrose/ Fat Emulsion Intravenous 1,920 ml @ 80 mls/hr TPN CONT IV Last administered on 08/16/19at 22:02; Start 08/16/19 at 22:00; Stop 08/17/19 at 21:59; Status DC Hydromorphone HCl (Dilaudid Standard DRUG SAFETY PHYSICIAN) 12 mg STK-MED ONCE IV ; Start 08/15/19 at 14:35; Stop 08/16/19 at 13:53; Status DC Artificial Tears (Artificial Tears) 1 drop PRN Q15MIN PRN OU DRY EYE Last administered on 10/11/19at 21:17; Start 08/17/19 at 05:30 Hydromorphone HCl (Dilaudid Standard DRUG SAFETY PHYSICIAN) 12 mg STK-MED ONCE IV ; Start 08/16/19 at 12:05; Stop 08/17/19 at 09:15; Status DC Potassium Acetate 65 meq/Magnesium Sulfate 20 meq/ Calcium Gluconate 10 meq/ Multivitamins 10 ml/Chromium/ Copper/Manganese/ Seleni/Zn 0.5 ml/ Insulin Human Regular 30 unit/ Total Parenteral Nutrition/Amino Acids/Dextrose/ Fat Emulsion Intravenous 1,920 ml @ 80 mls/hr TPN CONT IV Last administered on 08/17/19at 22:22; Start 08/17/19 at 22:00; Stop 08/18/19 at 21:59; Status DC Cyclobenzaprine HCl (Flexeril) 10 mg PRN Q6HRS PRN PO MUSCLE SPASMS Last administered on 10/28/19at 19:12; Start 08/18/19 at 10:45 Potassium Acetate 55 meq/Magnesium Sulfate 20 meq/ Calcium Gluconate 10 meq/ Multivitamins 10 ml/Chromium/ Copper/Manganese/ Seleni/Zn 0.5 ml/ Insulin Human Regular 30 unit/ Total Parenteral Nutrition/Amino Acids/Dextrose/ Fat Emulsion Intravenous 1,920 ml @ 80 mls/hr TPN CONT IV Last administered on 08/19/19at 01:00; Start 08/18/19 at 22:00; Stop 08/19/19 at 21:59; Status DC Magnesium Sulfate 50 ml @ 25 mls/hr 1X ONCE IV Last administered on 08/18/19at 17:18; Start 08/18/19 at 12:45; Stop 08/18/19 at 14:44; Status DC Potassium Chloride/Water 100 ml @ 100 mls/hr 1X ONCE IV Last administered on 08/19/19at 11:27; Start 08/19/19 at 12:00; Stop 08/19/19 at 12:59; Status DC Hydromorphone HCl (Dilaudid Standard DRUG SAFETY PHYSICIAN) 12 mg STK-MED ONCE IV ; Start 08/17/19 at 10:50; Stop 08/19/19 at 11:02; Status DC Hydromorphone HCl (Dilaudid Standard DRUG SAFETY PHYSICIAN) 12 mg STK-MED ONCE IV ; Start 08/18/19 at 13:47; Stop 08/19/19 at 11:03; Status DC Potassium Acetate 30 meq/Magnesium Sulfate 20 meq/ Calcium Gluconate 10 meq/ Multivitamins 10 ml/Chromium/ Copper/Manganese/ Seleni/Zn 0.5 ml/ Insulin Human Regular 30 unit/ Potassium Chloride 30 meq/ Total Parenteral Nutrition/Amino A cids/Dextrose/ Fat Emulsion Intravenous 1,920 ml @ 80 mls/hr TPN CONT IV Last administered on 08/19/19at 22:34; Start 08/19/19 at 22:00; Stop 08/20/19 at 21:59; Status DC Potassium Chloride/Water 100 ml @ 100 mls/hr Q1H IV Last administered on 08/20/19at 13:05; Start 08/20/19 at 07:00; Stop 08/20/19 at 10:59; Status DC Magnesium Sulfate 50 ml @ 25 mls/hr 1X ONCE IV Last administered on 08/20/19at 10:34; Start 08/20/19 at 10:30; Stop 08/20/19 at 12:29; Status DC Potassium Chloride 75 meq/ Magnesium Sulfate 20 meq/Calcium Gluconate 10 meq/ Multivitamins 10 ml/Chromium/ Copper/Manganese/ Seleni/Zn 0.5 ml/ Insulin Human Regular 30 unit/ Total Parenteral Nutrition/Amino Acids/Dextrose/ Fat Emulsion Intravenous 1,920 ml @ 80 mls/hr TPN CONT IV Last administered on 08/20/19at 21:51; Start 08/20/19 at 22:00; Stop 08/21/19 at 22:00; Status DC Potassium Chloride 75 meq/ Magnesium Sulfate 20 meq/Calcium Gluconate 10 meq/ Multivitamins 10 ml/Chromium/ Copper/Manganese/ Seleni/Zn 0.5 ml/ Insulin Human Regular 25 unit/ Total Parenteral Nutrition/Amino Acids/Dextrose/ Fat Emulsion Intravenous 1,920 ml @ 80 mls/hr TPN CONT IV Last administered on 08/21/19at 22:04; Start 08/21/19 at 22:00; Stop 08/22/19 at 21:59; Status DC Hydromorphone HCl (Dilaudid) 0.4 mg PRN Q4HRS PRN IVP PAIN Last administered on 08/22/19at 10:57; Start 08/22/19 at 09:00; Stop 08/22/19 at 18:59; Status DC Micafungin Sodium 100 mg/Dextrose 100 ml @ 100 mls/hr Q24H IV Last administered on 09/13/19at 12:17; Start 08/22/19 at 11:00; Stop 09/14/19 at 09:59; Status DC Daptomycin 485 mg/ Sodium Chloride 50 ml @ 100 mls/hr Q24H IV Last administered on 08/29/19at 13:10; Start 08/22/19 at 11:00; Stop 08/30/19 at 07:44; Status DC Potassium Chloride 75 meq/ Magnesium Sulfate 15 meq/Calcium Gluconate 8 meq/ Multivitamins 10 ml/Chromium/ Copper/Manganese/ Seleni/Zn 0.5 ml/ Insulin Human Regular 25 unit/ Total Parenteral Nutrition/Amino Acids/Dextrose/ Fat Emulsion Intravenous 1,920 ml @ 80 mls/hr TPN CONT IV Last administered on 08/22/19at 23:08; Start 08/22/19 at 22:00; Stop 08/23/19 at 21:59; Status DC Haloperidol Lactate (Haldol Inj) 3 mg 1X ONCE IVP Last administered on 08/22/19at 14:37; Start 08/22/19 at 14:30; Stop 08/22/19 at 14:31; Status DC Hydromorphone HCl (Dilaudid) 1 mg PRN Q4HRS PRN IVP PAIN Last administered on 09/05/19at 06:25; Start 08/22/19 at 19:00; Stop 09/05/19 at 17:10; Status DC Potassium Chloride 75 meq/ Magnesium Sulfate 15 meq/Calcium Gluconate 8 meq/ Multivitamins 10 ml/Chromium/ Copper/Manganese/ Seleni/Zn 0.5 ml/ Insulin Human Regular 20 unit/ Total Parenteral Nutrition/Amino Acids/Dextrose/ Fat Emulsion Intravenous 1,920 ml @ 80 mls/hr TPN CONT IV Last administered on 08/23/19at 22:10; Start 08/23/19 at 22:00; Stop 08/24/19 at 21:59; Status DC Lidocaine HCl (Buffered Lidocaine 1%) 3 ml STK-MED ONCE .ROUTE ; Start 08/24/19 at 11:31; Stop 08/24/19 at 11:31; Status DC Lidocaine HCl (Buffered Lidocaine 1%) 3 ml STK-MED ONCE .ROUTE ; Start 08/24/19 at 12:28; Stop 08/24/19 at 12:29; Status DC Lidocaine HCl (Buffered Lidocaine 1%) 6 ml 1X ONCE INJ Last administered on 08/24/19at 12:53; Start 08/24/19 at 12:45; Stop 08/24/19 at 12:46; Status DC Potassium Chloride 75 meq/ Magnesium Sulfate 15 meq/Calcium Gluconate 8 meq/ Multivitamins 10 ml/Chromium/ Copper/Manganese/ Seleni/Zn 0.5 ml/ Insulin Human Regular 20 unit/ Total Parenteral Nutrition/Amino Acids/Dextrose/ Fat Emulsion Intravenous 1,920 ml @ 80 mls/hr TPN CONT IV Last administered on 08/24/19at 22:00; Start 08/24/19 at 22:00; Stop 08/25/19 at 21:59; Status DC Potassium Chloride 75 meq/ Magnesium Sulfate 15 meq/Calcium Gluconate 8 meq/ Multivitamins 10 ml/Chromium/ Copper/Manganese/ Seleni/Zn 0.5 ml/ Insulin Human Regular 15 unit/ Total Parenteral Nutrition/Amino Acids/Dextrose/ Fat Emulsion Intravenous 1,920 ml @ 80 mls/hr TPN CONT IV Last administered on 08/25/19at 22:28; Start 08/25/19 at 22:00; Stop 08/26/19 at 21:59; Status DC Vecuronium Crete (Norcuron Bolus) 6 mg PRN Q6HRS PRN IV VENT ASYNCHRONY; Start 08/25/19 at 19:15; Stop 08/25/19 at 19:35; Status DC Bumetanide (Bumex) 2 mg 1X ONCE IV Last administered on 08/25/19at 22:09; Start 08/25/19 at 19:45; Stop 08/25/19 at 19:46; Status DC Lidocaine HCl (Buffered Lidocaine 1%) 3 ml STK-MED ONCE .ROUTE ; Start 08/26/19 at 07:59; Stop 08/26/19 at 07:59; Status DC Midazolam HCl (Versed) 5 mg STK-MED ONCE .ROUTE ; Start 08/26/19 at 08:36; Stop 08/26/19 at 08:36; Status DC Fentanyl Citrate (Fentanyl 5ml Vial) 250 mcg STK-MED ONCE .ROUTE ; Start 08/26/19 at 08:36; Stop 08/26/19 at 08:37; Status DC Lidocaine HCl (Buffered Lidocaine 1%) 3 ml 1X ONCE IJ Last administered on 08/26/19at 09:30; Start 08/26/19 at 09:15; Stop 08/26/19 at 09:16; Status DC Midazolam HCl (Versed) 5 mg 1X ONCE IV Last administered on 08/26/19at 09:30; Start 08/26/19 at 09:15; Stop 08/26/19 at 09:16; Status DC Fentanyl Citrate (Fentanyl 5ml Vial) 250 mcg 1X ONCE IV Last administered on 08/26/19at 09:30; Start 08/26/19 at 09:15; Stop 08/26/19 at 09:16; Status DC Bumetanide (Bumex) 2 mg DAILY IV Last administered on 09/05/19at 08:07; Start 08/26/19 at 10:00; Stop 09/05/19 at 17:15; Status DC Potassium Chloride 75 meq/ Magnesium Sulfate 15 meq/ Multivitamins 10 ml/Chromium/ Copper/Manganese/ Seleni/Zn 0.5 ml/ Insulin Human Regular 15 unit/ Total Parenteral Nutrition/Amino Acids/Dextrose/ Fat Emulsion Intravenous 1,920 ml @ 80 mls/hr TPN CONT IV Last administered on 08/26/19at 21:59; Start 08/26/19 at 22:00; Stop 08/27/19 at 21:59; Status DC Metoclopramide HCl (Reglan Vial) 10 mg PRN Q3HRS PRN IVP NAUSEA/VOMITING-3rd choice Last administered on 09/01/19at 04:25; Start 08/27/19 at 16:45 Potassium Chloride 75 meq/ Magnesium Sulfate 15 meq/ Multivitamins 10 ml/Chromium/ Copper/Manganese/ Seleni/Zn 0.5 ml/ Insulin Human Regular 15 unit/ Total Parenteral Nutrition/Amino Acids/Dextrose/ Fat Emulsion Intravenous 1,920 ml @ 80 mls/hr TPN CONT IV Last administered on 08/27/19at 22:41; Start 08/27/19 at 22:00; Stop 08/28/19 at 21:59; Status DC Magnesium Sulfate 50 ml @ 25 mls/hr 1X ONCE IV Last administered on 08/28/19at 10:44; Start 08/28/19 at 09:00; Stop 08/28/19 at 10:59; Status DC Potassium Chloride/Water 100 ml @ 100 mls/hr 1X ONCE IV Last administered on 08/28/19at 09:37; Start 08/28/19 at 09:00; Stop 08/28/19 at 09:59; Status DC Duloxetine HCl (Cymbalta) 30 mg DAILY PO Last administered on 08/29/19at 09:48; Start 08/28/19 at 14:00; Stop 08/31/19 at 10:25; Status DC Potassium Chloride 80 meq/ Magnesium Sulfate 20 meq/ Multivitamins 10 ml/Chromium/ Copper/Manganese/ Seleni/Zn 0.5 ml/ Insulin Human Regular 15 unit/ Total Parenteral Nutrition/Amino Acids/Dextrose/ Fat Emulsion Intravenous 1,920 ml @ 80 mls/hr TPN CONT IV Last administered on 08/28/19at 21:42; Start 08/28/19 at 22:00; Stop 08/29/19 at 21:59; Status DC Potassium Chloride 80 meq/ Magnesium Sulfate 20 meq/ Multivitamins 10 ml/Chromium/ Copper/Manganese/ Seleni/Zn 0.5 ml/ Insulin Human Regular 15 unit/ Total Parenteral Nutrition/Amino Acids/Dextrose/ Fat Emulsion Intravenous 1,920 ml @ 80 mls/hr TPN CONT IV Last administered on 08/29/19at 22:20; Start 08/29/19 at 22:00; Stop 08/30/19 at 21:59; Status DC Lidocaine HCl (Buffered Lidocaine 1%) 3 ml STK-MED ONCE .ROUTE ; Start 08/30/19 at 09:54; Stop 08/30/19 at 09:55; Status DC Hydromorphone HCl (Dilaudid Standard DRUG SAFETY PHYSICIAN) 12 mg STK-MED ONCE IV ; Start 08/19/19 at 15:50; Stop 08/30/19 at 11:24; Status DC Potassium Chloride 80 meq/ Magnesium Sulfate 20 meq/ Multivitamins 10 ml/Chromium/ Copper/Manganese/ Seleni/Zn 0.5 ml/ Insulin Human Regular 15 unit/ Total Parenteral Nutrition/Amino Acids/Dextrose/ Fat Emulsion Intravenous 1,920 ml @ 80 mls/hr TPN CONT IV Last administered on 08/30/19at 21:40; Start 08/30/19 at 22:00; Stop 08/31/19 at 21:59; Status DC Lidocaine HCl (Buffered Lidocaine 1%) 6 ml 1X ONCE INJ Last administered on 08/30/19at 14:15; Start 08/30/19 at 14:15; Stop 08/30/19 at 14:16; Status DC Potassium Chloride 80 meq/ Magnesium Sulfate 20 meq/ Multivitamins 10 ml/Chromium/ Copper/Manganese/ Seleni/Zn 1 ml/ Insulin Human Regular 15 unit/ Total Parenteral Nutrition/Amino Acids/Dextrose/ Fat Emulsion Intravenous 1,920 ml @ 80 mls/hr TPN CONT IV Last administered on 08/31/19at 22:04; Start 08/31/19 at 22:00; Stop 09/01/19 at 21:59; Status DC Potassium Chloride/Water 100 ml @ 100 mls/hr 1X ONCE IV Last administered on 09/01/19at 11:34; Start 09/01/19 at 11:00; Stop 09/01/19 at 11:59; Status DC Potassium Chloride 90 meq/ Magnesium Sulfate 20 meq/ Multivitamins 10 ml/Chromium/ Copper/Manganese/ Seleni/Zn 1 ml/ Insulin Human Regular 15 unit/ Total Parenteral Nutrition/Amino Acids/Dextrose/ Fat Emulsion Intravenous 1,920 ml @ 80 mls/hr TPN CONT IV Last administered on 09/01/19at 22:57; Start 09/01/19 at 22:00; Stop 09/02/19 at 21:59; Status DC Potassium Chloride 90 meq/ Magnesium Sulfate 20 meq/ Multivitamins 10 ml/ Chromium/ Copper/Manganese/ Seleni/Zn 1 ml/ Insulin Human Regular 15 unit/ Total Parenteral Nutrition/Amino Acids/Dextrose/ Fat Emulsion Intravenous 1,920 ml @ 80 mls/hr TPN CONT IV Last administered on 09/02/19at 22:48; Start 09/02/19 at 22:00; Stop 09/03/19 at 21:59; Status DC Potassium Chloride 90 meq/ Magnesium Sulfate 20 meq/ Multivitamins 10 ml/Chromium/ Copper/Manganese/ Seleni/Zn 1 ml/ Insulin Human Regular 15 unit/ Total Parenteral Nutrition/Amino Acids/Dextrose/ Fat Emulsion Intravenous 1,890 ml @ 78.75 mls/ hr TPN CONT IV Last administered on 09/03/19at 22:15; Start 09/03/19 at 22:00; Stop 09/04/19 at 21:59; Status DC Linezolid/Dextrose 300 ml @ 300 mls/hr Q12HR IV Last administered on 09/06/19at 21:08; Start 09/04/19 at 09:00; Stop 09/07/19 at 08:11; Status DC Daptomycin 450 mg/ Sodium Chloride 50 ml @ 100 mls/hr Q24H IV Last administered on 09/07/19at 09:25; Start 09/04/19 at 09:00; Stop 09/08/19 at 08:30; Status DC Potassium Chloride 90 meq/ Magnesium Sulfate 20 meq/ Multivitamins 10 m l/Chromium/ Copper/Manganese/ Seleni/Zn 1 ml/ Insulin Human Regular 15 unit/ Total Parenteral Nutrition/Amino Acids/Dextrose/ Fat Emulsion Intravenous 1,890 ml @ 78.75 mls/ hr TPN CONT IV Last administered on 09/04/19at 21:34; Start 09/04/19 at 22:00; Stop 09/05/19 at 21:59; Status DC Lorazepam (Ativan Inj) 2 mg STK-MED ONCE .ROUTE ; Start 09/04/19 at 14:58; Stop 09/04/19 at 14:58; Status DC Metoprolol Tartrate (Lopressor Vial) 5 mg 1X ONCE IVP Last administered on 09/04/19at 15:31; Start 09/04/19 at 15:15; Stop 09/04/19 at 15:16; Status DC Lorazepam (Ativan Inj) 2 mg 1X ONCE IVP Last administered on 09/04/19at 15:30; Start 09/04/19 at 15:15; Stop 09/04/19 at 15:16; Status DC Enoxaparin Sodium (Lovenox 40mg Syringe) 40 mg Q24H SQ Last administered on 09/23/19at 17:44; Start 09/04/19 at 17:00; Stop 09/25/19 at 06:50; Status DC Lorazepam (Ativan Inj) 1 mg PRN Q4HRS PRN IVP ANXIETY / AGITATION MILD-MOD Last administered on 09/18/19at 15:55; Start 09/04/19 at 19:15; Stop 09/20/19 at 11:45; Status DC Lorazepam (Ativan Inj) 2 mg PRN Q4HRS PRN IVP ANXIETY / AGITATION SEVERE Last administered on 09/19/19at 07:55; Start 09/04/19 at 19:15; Stop 09/20/19 at 11:45; Status DC Fentanyl Citrate (Fentanyl 2ml Vial) 50 mcg PRN Q4HRS PRN IVP SEVERE PAIN Last administered on 10/01/19at 05:15; Start 09/05/19 at 13:15; Stop 10/02/19 at 09:29; Status DC Fentanyl Citrate (Fentanyl 2ml Vial) 25 mcg PRN Q4HRS PRN IVP MODERATE PAIN Last administered on 10/01/19at 00:27; Start 09/05/19 at 13:15; Stop 10/02/19 at 09:30; Status DC Potassium Chloride 90 meq/ Magnesium Sulfate 20 meq/ Multivitamins 10 ml/Chromium/ Copper/Manganese/ Seleni/Zn 1 ml/ Insulin Human Regular 15 unit/ Total Parenteral Nutrition/Amino Acids/Dextrose/ Fat Emulsion Intravenous 1,890 ml @ 78.75 mls/ hr TPN CONT IV Last administered on 09/05/19at 22:18; Start 09/05/19 at 22:00; Stop 09/06/19 at 21:59; Status DC Furosemide (Lasix) 40 mg 1X ONCE IVP Last administered on 09/05/19at 21:51; Start 09/05/19 at 21:45; Stop 09/05/19 at 21:48; Status DC Albumin Human 100 ml @ 100 mls/hr 1X PRN PRN IV SEE COMMENTS; Start 09/06/19 at 01:30; Stop 11/21/19 at 09:52; Status DC Furosemide (Lasix) 40 mg [id number] IVP Last administered on 09/21/19at 08:04; Start 09/06/19 at 14:00; Stop 09/21/19 at 13:07; Status DC Potassium Chloride 90 meq/ Magnesium Sulfate 20 meq/ Multivitamins 10 ml/Chromium/ Copper/Manganese/ Seleni/Zn 1 ml/ Insulin Human Regular 15 unit/ Total Parenteral Nutrition/Amino Acids/Dextrose/ Fat Emulsion Intravenous 1,800 ml @ 75 mls/hr TPN CONT IV Last administered on 09/06/19at 22:31; Start 09/06/19 at 22:00; Stop 09/07/19 at 21:59; Status DC Potassium Chloride 90 meq/ Magnesium Sulfate 20 meq/ Multivitamins 10 ml/Chromium/ Copper/Manganese/ Seleni/Zn 1 ml/ Insulin Human Regular 15 unit/ Total Parenteral Nutrition/Amino Acids/Dextrose/ Fat Emulsion Intravenous 1,800 ml @ 75 mls/hr TPN CONT IV Last administered on 09/07/19at 22:28; Start 09/07/19 at 22:00; Stop 09/08/19 at 21:59; Status DC Potassium Chloride 110 meq/ Magnesium Sulfate 20 meq/ Multivitamins 10 m l/Chromium/ Copper/Manganese/ Seleni/Zn 1 ml/ Insulin Human Regular 15 unit/ Total Parenteral Nutrition/Amino Acids/Dextrose/ Fat Emulsion Intravenous 1,800 ml @ 75 mls/hr TPN CONT IV Last administered on 09/08/19at 22:01; Start 09/08/19 at 22:00; Stop 09/09/19 at 21:59; Status DC Saliva Substitute (Biotene Moisturizing Mouth) 2 spray PRN Q15MIN PRN PO DRY MOUTH; Start 09/08/19 at 11:00 Potassium Chloride 110 meq/ Magnesium Sulfate 20 meq/ Multivitamins 10 ml/Chromium/ Copper/Manganese/ Seleni/Zn 1 ml/ Insulin Human Regular 15 unit/ Total Parenteral Nutrition/Amino Acids/Dextrose/ Fat Emulsion Intravenous 1,800 ml @ 75 mls/hr TPN CONT IV Last administered on 09/09/19at 22:21; Start 09/09/19 at 22:00; Stop 09/10/19 at 21:59; Status DC Potassium Chloride 110 meq/ Magnesium Sulfate 20 meq/ Multivitamins 10 ml/Chromium/ Copper/Manganese/ Seleni/Zn 1 ml/ Insulin Human Regular 15 unit/ Total Parenteral Nutrition/Amino Acids/Dextrose/ Fat Emulsion Intravenous 1,800 ml @ 75 mls/hr TPN CONT IV Last administered on 09/10/19at 22:04; Start 09/10/19 at 22:00; Stop 09/11/19 at 21:59; Status DC Potassium Chloride 110 meq/ Magnesium Sulfate 20 meq/ Multivitamins 10 ml/Chromium/ Copper/Manganese/ Seleni/Zn 1 ml/ Insulin Human Regular 15 unit/ Total Parenteral Nutrition/Amino Acids/Dextrose/ Fat Emulsion Intravenous 1,800 ml @ 75 mls/hr TPN CONT IV Last administered on 09/11/19at 22:48; Start 09/11/19 at 22:00; Stop 09/12/19 at 21:59; Status DC Potassium Chloride 70 meq/ Magnesium Sulfate 20 meq/ Multivitamins 10 m l/Chromium/ Copper/Manganese/ Seleni/Zn 1 ml/ Insulin Human Regular 15 unit/ Total Parenteral Nutrition/Amino Acids/Dextrose/ Fat Emulsion Intravenous 1,800 ml @ 75 mls/hr TPN CONT IV Last administered on 09/12/19at 21:39; Start 09/12/19 at 22:00; Stop 09/13/19 at 21:59; Status DC Meropenem 500 mg/ Sodium Chloride 50 ml @ 100 mls/hr Q6HRS IV Last administered on 09/14/19at 06:02; Start 09/12/19 at 18:00; Stop 09/14/19 at 09:59; Status DC Barium Sulfate (Varibar Thin Liquid Apple) 148 gm 1X ONCE PO ; Start 09/13/19 at 11:45; Stop 09/13/19 at 11:49; Status DC Potassium Chloride 70 meq/ Magnesium Sulfate 20 meq/ Multivitamins 10 ml/Chromium/ Copper/Manganese/ Seleni/Zn 1 ml/ Insulin Human Regular 15 unit/ Total Parenteral Nutrition/Amino Acids/Dextrose/ Fat Emulsion Intravenous 1,800 ml @ 75 mls/hr TPN CONT IV Last administered on 09/13/19at 22:27; Start 09/13/19 at 22:00; Stop 09/14/19 at 21:59; Status DC Piperacillin Sod/ Tazobactam Sod 3.375 gm/Sodium Chloride 50 ml @ 100 mls/hr Q6HRS IV Last administered on 09/22/19at 06:10; Start 09/14/19 at 12:00; Stop 09/22/19 at 07:26; Status DC Potassium Chloride 70 meq/ Magnesium Sulfate 20 meq/ Multivitamins 10 ml/Chromium/ Copper/Manganese/ Seleni/Zn 1 ml/ Insulin Human Regular 15 unit/ Total Parenteral Nutrition/Amino Acids/Dextrose/ Fat Emulsion Intravenous 1,800 ml @ 75 mls/hr TPN CONT IV Last administered on 09/14/19at 22:03; Start 09/14/19 at 22:00; Stop 09/15/19 at 21:59; Status DC Potassium Chloride 70 meq/ Magnesium Sulfate 20 meq/ Multivitamins 10 ml/Chromium/ Copper/Manganese/ Seleni/Zn 1 ml/ Insulin Human Regular 15 unit/ Total Parenteral Nutrition/Amino Acids/Dextrose/ Fat Emulsion Intravenous 1,800 ml @ 75 mls/hr TPN CONT IV Last administered on 09/15/19at 22:33; Start 09/15/19 at 22:00; Stop 09/16/19 at 21:59; Status DC Potassium Chloride 70 meq/ Magnesium Sulfate 20 meq/ Multivitamins 10 ml/Chromium/ Copper/Manganese/ Seleni/Zn 1 ml/ Insulin Human Regular 15 unit/ Total Parenteral Nutrition/Amino Acids/Dextrose/ Fat Emulsion Intravenous 1,800 ml @ 75 mls/hr TPN CONT IV Last administered on 09/16/19at 23:13; Start 09/16/19 at 22:00; Stop 09/17/19 at 21:59; Status DC Potassium Chloride 80 meq/ Magnesium Sulfate 20 meq/ Multivitamins 10 ml/Chromium/ Copper/Manganese/ Seleni/Zn 1 ml/ Insulin Human Regular 15 unit/ Total Parenteral Nutrition/Amino Acids/Dextrose/ Fat Emulsion Intravenous 1,800 ml @ 75 mls/hr TPN CONT IV Last administered on 09/17/19at 22:30; Start 09/17/19 at 22:00; Stop 09/18/19 at 21:59; Status DC Potassium Chloride 80 meq/ Magnesium Sulfate 20 meq/ Multivitamins 10 ml/Chromium/ Copper/Manganese/ Seleni/Zn 1 ml/ Insulin Human Regular 15 unit/ Total Parenteral Nutrition/Amino Acids/Dextrose/ Fat Emulsion Intravenous 1,800 ml @ 75 mls/hr TPN CONT IV Last administered on 09/18/19at 21:54; Start 09/18/19 at 22:00; Stop 09/19/19 at 21:59; Status DC Potassium Chloride/Water 100 ml @ 100 mls/hr 1X ONCE IV Last administered on 09/19/19at 10:15; Start 09/19/19 at 10:00; Stop 09/19/19 at 10:59; Status DC Potassium Chloride 90 meq/ Magnesium Sulfate 20 meq/ Multivitamins 10 ml/Chromium/ Copper/Manganese/ Seleni/Zn 1 ml/ Insulin Human Regular 20 unit/ Total Parenteral Nutrition/Amino Acids/Dextrose/ Fat Emulsion Intravenous 1,800 ml @ 75 mls/hr TPN CONT IV Last administered on 09/19/19at 22:28; Start 09/19/19 at 22:00; Stop 09/20/19 at 21:59; Status DC Potassium Chloride 90 meq/ Magnesium Sulfate 20 meq/ Multivitamins 10 ml/Chromium/ Copper/Manganese/ Seleni/Zn 1 ml/ Insulin Human Regular 20 unit/ Total Parenteral Nutrition/Amino Acids/Dextrose/ Fat Emulsion Intravenous 1,800 ml @ 75 mls/hr TPN CONT IV Last administered on 09/20/19at 22:08; Start 09/20/19 at 22:00; Stop 09/21/19 at 21:59; Status DC Lorazepam (Ativan Inj) 0.25 mg PRN Q4HRS PRN IVP ANXIETY / AGITATION Last administered on 11/23/19at 23:50; Start 09/21/19 at 07:30 Potassium Chloride 90 meq/ Magnesium Sulfate 20 meq/ Multivitamins 10 ml/Chromium/ Copper/Manganese/ Seleni/Zn 1 ml/ Insulin Human Regular 20 unit/ Total Parenteral Nutrition/Amino Acids/Dextrose/ Fat Emulsion Intravenous 1,800 ml @ 75 mls/hr TPN CONT IV Last administered on 09/21/19at 23:13; Start 09/21/19 at 22:00; Stop 09/22/19 at 21:59; Status DC Furosemide (Lasix) 40 mg DAILY IVP Last administered on 09/23/19at 11:14; Start 09/21/19 at 13:30; Stop 09/25/19 at 09:12; Status DC Fluoxetine HCl (PROzac) 20 mg QHS PEG Last administered on 11/23/19at 21:40; Start 09/22/19 at 21:00 Fentanyl (Duragesic 50mcg/ Hr Patch) 1 patch Q72H TD Last administered on 09/22/19at 21:22; Start 09/22/19 at 21:00; Stop 10/01/19 at 12:00; Status DC Potassium Chloride 40 meq/ Potassium Acetate 60 meq/Magnesium Sulfate 10 meq/ Multivitamins 10 ml/Chromium/ Copper/Manganese/ Seleni/Zn 1 ml/ Insulin Human Regular 20 unit/ Total Parenteral Nutrition/Amino Acids/Dextrose/ Fat Emulsion Intravenous 1,800 ml @ 75 mls/hr TPN CONT IV Last administered on 09/23/19at 00:03; Start 09/22/19 at 22:00; Stop 09/23/19 at 21:59; Status DC Potassium Acetate 80 meq/Magnesium Sulfate 5 meq/ Multivitamins 10 ml/Chromium/ Copper/Manganese/ Seleni/Zn 1 ml/ Insulin Human Regular 20 unit/ Total Parenteral Nutrition/Amino Acids/Dextrose/ Fat Emulsion Intravenous 1,920 ml @ 80 mls/hr TPN CONT IV Last administered on 09/23/19at 21:59; Start 09/23/19 at 22:00; Stop 09/24/19 at 21:59; Status DC Potassium Acetate 60 meq/Magnesium Sulfate 5 meq/ Multivitamins 10 ml/Chromium/ Copper/Manganese/ Seleni/Zn 1 ml/ Insulin Human Regular 30 unit/ Total Parenteral Nutrition/Amino Acids/Dextrose/ Fat Emulsion Intravenous 1,920 ml @ 80 mls/hr TPN CONT IV Last administered on 09/24/19at 21:54; Start 09/24/19 at 22:00; Stop 09/25/19 at 21:59; Status DC Norepinephrine Bitartrate 8 mg/ Dextrose 258 ml @ 13.332 mls/ hr CONT PRN IV PER PROTOCOL Last administered on 10/20/19at 09:09; Start 09/25/19 at 06:30; Stop 11/21/19 at 09:45; Status DC Albumin Human 500 ml @ 125 mls/hr 1X ONCE IV Last administered on 09/25/19at 08:10; Start 09/25/19 at 08:15; Stop 09/25/19 at 12:14; Status DC Potassium Acetate 40 meq/Magnesium Sulfate 5 meq/ Multivitamins 10 ml/Chromium/ Copper/Manganese/ Seleni/Zn 1 ml/ Insulin Human Regular 30 unit/ Total Parenteral Nutrition/Amino Acids/Dextrose/ Fat Emulsion Intravenous 1,920 ml @ 80 mls/hr TPN CONT IV Last administered on 09/25/19at 22:23; Start 09/25/19 at 22:00; Stop 09/26/19 at 21:59; Status DC Meropenem 1 gm/ Sodium Chloride 100 ml @ 200 mls/hr Q8HRS IV ; Start 09/25/19 at 14:00; Status Cancel Meropenem 1 gm/ Sodium Chloride 100 ml @ 200 mls/hr Q8HRS IV Last administered on 09/25/19at 11:04; Start 09/25/19 at 10:00; Stop 09/25/19 at 13:00; Status DC Meropenem 1 gm/ Sodium Chloride 100 ml @ 200 mls/hr Q12HR IV Last administered on 10/13/19at 08:27; Start 09/25/19 at 21:00; Stop 10/13/19 at 08:56; Status DC Sodium Chloride 1,000 ml @ 1,000 mls/hr 1X ONCE IV Last administered on 09/25/19at 11:06; Start 09/25/19 at 10:45; Stop 09/25/19 at 11:44; Status DC Micafungin Sodium 100 mg/Dextrose 100 ml @ 100 mls/hr Q24H IV Last administered on 10/12/19at 12:34; Start 09/25/19 at 11:00; Stop 10/13/19 at 08:56; Status DC Daptomycin 410 mg/ Sodium Chloride 50 ml @ 100 mls/hr Q24H IV Last administered on 09/27/19at 13:33; Start 09/25/19 at 14:00; Stop 09/28/19 at 08:30; Status DC Midazolam HCl (Versed) 2 mg STK-MED ONCE .ROUTE ; Start 09/25/19 at 14:47; Stop 09/25/19 at 14:48; Status DC Fentanyl Citrate (Fentanyl 2ml Vial) 100 mcg STK-MED ONCE .ROUTE ; Start 09/25/19 at 14:47; Stop 09/25/19 at 14:48; Status DC Flumazenil (Romazicon) 0.5 mg STK-MED ONCE IV ; Start 09/25/19 at 14:48; Stop 09/25/19 at 14:48; Status DC Naloxone HCl (Narcan) 0.4 mg STK-MED ONCE .ROUTE ; Start 09/25/19 at 14:48; Stop 09/25/19 at 14:48; Status DC Lidocaine HCl (Lidocaine 1% 20ml Vial) 20 ml STK-MED ONCE .ROUTE ; Start 09/25/19 at 14:48; Stop 09/25/19 at 14:48; Status DC Midazolam HCl (Versed) 2 mg 1X ONCE IV Last administered on 09/25/19 15:28; Start 09/25/19 at 15:00; Stop 09/25/19 at 15:01; Status DC Fentanyl Citrate (Fentanyl 2ml Vial) 100 mcg 1X ONCE IV Last administered on 09/25/19 15:28; Start 09/25/19 at 15:00; Stop 09/25/19 at 15:01; Status DC Lidocaine HCl (Lidocaine 1% 20ml Vial) 20 ml 1X ONCE INJ Last administered on 09/25/19at 15:30; Start 09/25/19 at 15:00; Stop 09/25/19 at 15:01; Status DC Sodium Chloride 1,000 ml @ 100 mls/hr Q10H IV Last administered on 10/04/19at 07:30; Start 09/25/19 at 20:00; Stop 10/04/19 at 11:26; Status DC Sodium Bicarbonate (Sodium Bicarb Adult 8.4% Syr) 50 meq 1X ONCE IV Last administered on 09/25/19at 21:47; Start 09/25/19 at 22:00; Stop 09/25/19 at 22:01; Status DC Potassium Acetate 40 meq/Magnesium Sulfate 5 meq/ Multivitamins 10 ml/Chromium/ Copper/Manganese/ Seleni/Zn 1 ml/ Insulin Human Regular 30 unit/ Total Parenteral Nutrition/Amino Acids/Dextrose/ Fat Emulsion Intravenous 1,920 ml @ 80 mls/hr TPN CONT IV Last administered on 09/26/19at 22:28; Start 09/26/19 at 22:00; Stop 09/27/19 at 21:59; Status DC Sodium Chloride 500 ml @ 500 mls/hr 1X ONCE IV Last administered on 09/27/19at 06:39; Start 09/27/19 at 06:45; Stop 09/27/19 at 07:44; Status DC Potassium Acetate 40 meq/Magnesium Sulfate 5 meq/ Multivitamins 10 ml/Chromium/ Copper/Manganese/ Seleni/Zn 1 ml/ Insulin Human Regular 30 unit/ Total Parenteral Nutrition/Amino Acids/Dextrose/ Fat Emulsion Intravenous 1,920 ml @ 80 mls/hr TPN CONT IV Last administered on 09/27/19at 22:03; Start 09/27/19 at 22:00; Stop 09/28/19 at 21:59; Status DC Metoprolol Tartrate (Lopressor Vial) 5 mg PRN Q6HRS PRN IVP HYPERTENSION Last administered on 11/22/19at 17:40; Start 09/28/19 at 09:00 Potassium Acetate 40 meq/Magnesium Sulfate 5 meq/ Multivitamins 10 ml/Chromium/ Copper/Manganese/ Seleni/Zn 1 ml/ Insulin Human Regular 30 unit/ Total Parenter al Nutrition/Amino Acids/Dextrose/ Fat Emulsion Intravenous 1,920 ml @ 80 mls/hr TPN CONT IV Last administered on 09/28/19at 21:26; Start 09/28/19 at 22:00; Stop 09/29/19 at 21:59; Status DC Potassium Acetate 40 meq/Magnesium Sulfate 5 meq/ Multivitamins 10 ml/Chromium/ Copper/Manganese/ Seleni/Zn 1 ml/ Insulin Human Regular 30 unit/ Total Parenteral Nutrition/Amino Acids/Dextrose/ Fat Emulsion Intravenous 1,920 ml @ 80 mls/hr TPN CONT IV Last administered on 09/29/19at 23:23; Start 09/29/19 at 22:00; Stop 09/30/19 at 21:59; Status DC Potassium Acetate 40 meq/Magnesium Sulfate 5 meq/ Multivitamins 10 ml/Chromium/ Copper/Manganese/ Seleni/Zn 1 ml/ Insulin Human Regular 30 unit/ Total Parenteral Nutrition/Amino Acids/Dextrose/ Fat Emulsion Intravenous 1,920 ml @ 80 mls/hr TPN CONT IV Last administered on 09/30/19at 21:35; Start 09/30/19 at 22:00; Stop 10/01/19 at 21:59; Status DC Furosemide (Lasix) 20 mg 1X ONCE IVP Last administered on 10/01/19at 06:26; Start 10/01/19 at 06:15; Stop 10/01/19 at 06:16; Status DC Methylprednisolone Sodium Succinate (SOLU-Medrol 125MG VIAL) 125 mg 1X ONCE IV Last administered on 10/01/19at 06:26; Start 10/01/19 at 06:15; Stop 10/01/19 at 06:16; Status DC Albuterol/ Ipratropium (Duoneb) 3 ml Q4HRS NEB Last administered on 11/24/19at 08:47; Start 10/01/19 at 08:00 Fentanyl Citrate 30 ml @ 0 mls/hr CONT PRN IV SEE PROTOCOL Last administered on 10/22/19at 08:03; Start 10/01/19 at 06:00; Stop 10/22/19 at 12:42; Status DC Propofol 100 ml @ 0 mls/hr CONT PRN IV SEE PROTOCOL Last administered on 10/08/19at 23:50; Start 10/01/19 at 06:00; Stop 11/21/19 at 09:45; Status DC Fentanyl Citrate (Fentanyl 2ml Vial) 25 mcg PRN Q1HR PRN IV SEE COMMENTS Last administered on 11/19/19at 23:56; Start 10/01/19 at 06:00; Stop 11/21/19 at 09:45; Status DC Fentanyl Citrate (Fentanyl 2ml Vial) 50 mcg PRN Q1HR PRN IV SEE COMMENTS Last administered on 11/21/19at 09:39; Start 10/01/19 at 06:00; Stop 11/21/19 at 09:45; Status DC Chlorhexidine Gluconate (Peridex) 15 ml BID MM ; Start 10/01/19 at 09:00; Stop 10/01/19 at 07:58; Status DC Potassium Acetate 40 meq/Magnesium Sulfate 5 meq/ Multivitamins 10 ml/Chromium/ Copper/Manganese/ Seleni/Zn 1 ml/ Insulin Human Regular 30 unit/ Total Parenteral Nutrition/Amino Acids/Dextrose/ Fat Emulsion Intravenous 1,920 ml @ 80 mls/hr TPN CONT IV Last administered on 10/01/19at 21:19; Start 10/01/19 at 22:00; Stop 10/02/19 at 21:59; Status DC Acetylcysteine (Mucomyst 20% Resp Treatment) 600 mg BID NEB Last administered on 10/07/19at 09:33; Start 10/01/19 at 21:00; Stop 10/07/19 at 10:39; Status DC Magnesium Sulfate 100 ml @ 25 mls/hr 1X ONCE IV Last administered on 10/01/19at 15:48; Start 10/01/19 at 15:45; Stop 10/01/19 at 19:44; Status DC Potassium Acetate 40 meq/Magnesium Sulfate 5 meq/ Multivitamins 10 ml/Chromium/ Copper/Manganese/ Seleni/Zn 1 ml/ Insulin Human Regular 30 unit/ Total Parenteral Nutrition/Amino Acids/Dextrose/ Fat Emulsion Intravenous 1,920 ml @ 80 mls/hr TPN CONT IV Last administered on 10/02/19at 21:35; Start 10/02/19 at 22:00; Stop 10/03/19 at 21:59; Status DC Potassium Chloride/Water 100 ml @ 100 mls/hr Q1H IV Last administered on 10/03/19at 08:31; Start 10/03/19 at 07:00; Stop 10/03/19 at 08:59; Status DC Potassium Acetate 40 meq/Magnesium Sulfate 5 meq/ Multivitamins 10 ml/Chromium/ Copper/Manganese/ Seleni/Zn 1 ml/ Insulin Human Regular 30 unit/ Total Parenteral Nutrition/Amino Acids/Dextrose/ Fat Emulsion Intravenous 1,920 ml @ 80 mls/hr TPN CONT IV Last administered on 10/03/19at 21:54; Start 10/03/19 at 22:00; Stop 10/04/19 at 19:34; Status DC Lidocaine HCl (Buffered Lidocaine 1%) 3 ml STK-MED ONCE .ROUTE ; Start 10/03/19 at 12:14; Stop 10/03/19 at 12:14; Status DC Lidocaine HCl (Buffered Lidocaine 1%) 3 ml 1X ONCE IJ Last administered on 10/03/19at 13:11; Start 10/03/19 at 13:00; Stop 10/03/19 at 13:01; Status DC Magnesium Sulfate 50 ml @ 25 mls/hr 1X ONCE IV ; Start 10/04/19 at 08:15; Stop 10/04/19 at 10:14; Status DC Potassium Acetate 40 meq/Magnesium Sulfate 10 meq/ Multivitamins 10 ml/Chromium/ Copper/Manganese/ Seleni/Zn 1 ml/ Insulin Human Regular 20 unit/ Total Parenteral Nutrition/Amino Acids/Dextrose/ Fat Emulsion Intravenous 1,920 ml @ 80 mls/hr TPN CONT IV Last administered on 10/04/19at 21:32; Start 10/04/19 at 22:00; Stop 10/05/19 at 21:59; Status DC Potassium Chloride/Water 100 ml @ 100 mls/hr Q1H IV Last administered on 10/05/19at 09:12; Start 10/05/19 at 08:00; Stop 10/05/19 at 09:59; Status DC Alteplase, Recombinant (Cathflo For Central Catheter Clearance) 4 mg 1X ONCE INT CAT ; Start 10/05/19 at 09:15; Stop 10/05/19 at 09:16; Status UNV Alteplase, Recombinant (Cathflo For Central Catheter Clearance) 4 mg 1X ONCE INT CAT ; Start 10/05/19 at 09:15; Stop 10/05/19 at 09:16; Status UNV Alteplase, Recombinant (Cathflo For Central Catheter Clearance) 4 mg 1X ONCE INT CAT ; Start 10/05/19 at 09:15; Stop 10/05/19 at 09:16; Status UNV Alteplase, Recombinant 4 mg/ Sodium Chloride 20 ml @ 20 mls/hr 1X ONCE IV Last administered on 10/05/19at 10:10; Start 10/05/19 at 10:00; Stop 10/05/19 at 10:59; Status DC Alteplase, Recombinant 4 mg/ Sodium Chloride 20 ml @ 20 mls/hr 1X ONCE IV Last administered on 10/05/19at 10:09; Start 10/05/19 at 10:00; Stop 10/05/19 at 10:59; Status DC Alteplase, Recombinant 4 mg/ Sodium Chloride 20 ml @ 20 mls/hr 1X ONCE IV Last administered on 10/05/19at 10:09; Start 10/05/19 at 10:00; Stop 10/05/19 at 10:59; Status DC Potassium Acetate 60 meq/Magnesium Sulfate 10 meq/ Multivitamins 10 ml/Chromium/ Copper/Manganese/ Seleni/Zn 1 ml/ Insulin Human Regular 20 unit/ Total Parenteral Nutrition/Amino Acids/Dextrose/ Fat Emulsion Intravenous 1,920 ml @ 80 mls/hr TPN CONT IV Last administered on 10/05/19at 21:55; Start 10/05/19 at 22:00; Stop 10/06/19 at 21:59; Status DC Albumin Human 500 ml @ 125 mls/hr 1X ONCE IV Last administered on 10/06/19at 12:01; Start 10/06/19 at 11:15; Stop 10/06/19 at 15:14; Status DC Sodium Chloride 500 ml @ 500 mls/hr 1X ONCE IV Last administered on 10/06/19at 13:50; Start 10/06/19 at 11:15; Stop 10/06/19 at 12:14; Status DC Potassium Acetate 60 meq/Magnesium Sulfate 14 meq/ Multivitamins 10 ml/Chromium/ Copper/Manganese/ Seleni/Zn 1 ml/ Insulin Human Regular 20 unit/ Total Parentera l Nutrition/Amino Acids/Dextrose/ Fat Emulsion Intravenous 1,920 ml @ 80 mls/hr TPN CONT IV Last administered on 10/06/19at 22:26; Start 10/06/19 at 22:00; Stop 10/07/19 at 21:59; Status DC Ciprofloxacin/ Dextrose 200 ml @ 200 mls/hr Q12HR IV Last administered on 10/13/19at 08:27; Start 10/06/19 at 21:00; Stop 10/13/19 at 08:56; Status DC Albumin Human 250 ml @ 62.5 mls/hr 1X ONCE IV Last administered on 10/07/19at 11:09; Start 10/07/19 at 11:00; Stop 10/07/19 at 14:59; Status DC Furosemide (Lasix) 20 mg 1X ONCE IVP Last administered on 10/07/19at 14:52; Start 10/07/19 at 10:45; Stop 10/07/19 at 10:49; Status DC Potassium Acetate 60 meq/Magnesium Sulfate 14 meq/ Multivitamins 10 ml/Chromium/ Copper/Manganese/ Seleni/Zn 1 ml/ Insulin Human Regular 15 unit/ Total Parenteral Nutrition/Amino Acids/Dextrose/ Fat Emulsion Intravenous 1,920 ml @ 80 mls/hr TPN CONT IV Last administered on 10/07/19at 22:08; Start 10/07/19 at 22:00; Stop 10/08/19 at 21:59; Status DC Potassium Acetate 60 meq/Magnesium Sulfate 14 meq/ Multivitamins 10 ml/Chromium/ Copper/Manganese/ Seleni/Zn 1 ml/ Insulin Human Regular 15 unit/ Total Parenteral Nutrition/Amino Acids/Dextrose/ Fat Emulsion Intravenous 1,920 ml @ 80 mls/hr TPN CONT IV Last administered on 10/08/19at 22:12; Start 10/08/19 at 22:00; Stop 10/09/19 at 21:59; Status DC Potassium Acetate 60 meq/Magnesium Sulfate 14 meq/ Multivitamins 10 ml/Chromium/ Copper/Manganese/ Seleni/Zn 1 ml/ Insulin Human Regular 15 unit/ Total Parenteral Nutrition/Amino Acids/Dextrose/ Fat Emulsion Intravenous 1,920 ml @ 80 mls/hr TPN CONT IV Last administered on 10/09/19at 22:22; Start 10/09/19 at 22:00; Stop 10/10/19 at 21:59; Status DC Furosemide (Lasix) 20 mg 1X ONCE IVP Last administered on 10/10/19at 11:07; Start 10/10/19 at 10:30; Stop 10/10/19 at 10:34; Status DC Potassium Acetate 60 meq/Magnesium Sulfate 14 meq/ Multivitamins 10 ml/Chromium/ Copper/Manganese/ Seleni/Zn 1 ml/ Insulin Human Regular 15 unit/ Sodium Chloride 20 meq/Total Parenteral Nutrition/Amino Acids/Dextrose/ Fat Emulsion Intravenous 1,920 ml @ 80 mls/hr TPN CONT IV Last administered on 10/10/19at 21:54; Start 10/10/19 at 22:00; Stop 10/11/19 at 21:59; Status DC Potassium Acetate 30 meq/Magnesium Sulfate 14 meq/ Multivitamins 10 ml/Chromium/ Copper/Manganese/ Seleni/Zn 1 ml/ Insulin Human Regular 15 unit/ Sodium Chloride 20 meq/Potassium Chloride 30 meq/ Total Parenteral Nutrition/Amino Acids/Dextrose/ Fat Emulsion Intravenous 1,920 ml @ 80 mls/hr TPN CONT IV Last administered on 10/11/19at 21:46; Start 10/11/19 at 22:00; Stop 10/12/19 at 21:59; Status DC Sodium Chloride 80 meq/Potassium Chloride 30 meq/ Potassium Acetate 30 meq/Mag nesium Sulfate 14 meq/ Multivitamins 10 ml/Chromium/ Copper/Manganese/ Seleni/Zn 1 ml/ Insulin Human Regular 15 unit/ Total Parenteral Nutrition/Amino Acids/Dextrose/ Fat Emulsion Intravenous 1,920 ml @ 80 mls/hr TPN CONT IV Last administered on 10/12/19at 22:33; Start 10/12/19 at 22:00; Stop 10/13/19 at 21:59; Status DC Furosemide (Lasix) 40 mg 1X ONCE IVP Last administered on 10/12/19at 16:27; Start 10/12/19 at 15:30; Stop 10/12/19 at 15:33; Status DC Albumin Human 250 ml @ 62.5 mls/hr 1X ONCE IV Last administered on 10/12/19at 16:27; Start 10/12/19 at 15:30; Stop 10/12/19 at 19:29; Status DC Sodium Chloride 80 meq/Potassium Chloride 30 meq/ Potassium Acetate 30 meq/Magnesium Sulfate 14 meq/ Multivitamins 10 ml/Chromium/ Copper/Manganese/ Seleni/Zn 1 ml/ Insulin Human Regular 15 unit/ Total Parenteral Nutrition/Amino Acids/Dextrose/ Fat Emulsion Intravenous 1,920 ml @ 80 mls/hr TPN CONT IV Last administered on 10/13/19at 22:25; Start 10/13/19 at 22:00; Stop 10/14/19 at 21:59; Status DC Sodium Chloride 80 meq/Potassium Chloride 30 meq/ Potassium Acetate 30 meq/Magnesium Sulfate 14 meq/ Multivitamins 10 ml/Chromium/ Copper/Manganese/ Seleni/Zn 1 ml/ Insulin Human Regular 15 unit/ Total Parenteral Nutrition/Amino Acids/Dextrose/ Fat Emulsion Intravenous 1,920 ml @ 80 mls/hr TPN CONT IV Last administered on 10/14/19at 21:32; Start 10/14/19 at 22:00; Stop 10/15/19 at 21:59; Status DC Sodium Chloride 80 meq/Potassium Chloride 30 meq/ Potassium Acetate 30 meq/Magnesium Sulfate 14 meq/ Multivitamins 10 ml/Chromium/ Copper/Manganese/ Seleni/Zn 1 ml/ Insulin Human Regular 15 unit/ Total Parenteral Nutrition/Amino Acids/Dextrose/ Fat Emulsion Intravenous 1,920 ml @ 80 mls/hr TPN CONT IV Last administered on 10/15/19at 21:53; Start 10/15/19 at 22:00; Stop 10/16/19 at 21:59; Status DC Acetylcysteine (Mucomyst 20% Resp Treatment) 600 mg RTBID NEB Last administered on 11/24/19at 08:47; Start 10/15/19 at 12:00 Sodium Chloride 80 meq/Potassium Chloride 30 meq/ Potassium Acetate 30 meq/Magnesium Sulfate 14 meq/ Multivitamins 10 ml/Chromium/ Copper/Manganese/ Seleni/Zn 1 ml/ Insulin Human Regular 15 unit/ Total Parenteral Nutrition/Amino Acids/Dextrose/ Fat Emulsion Intravenous 1,920 ml @ 80 mls/hr TPN CONT IV Last administered on 10/16/19at 22:06; Start 10/16/19 at 22:00; Stop 10/17/19 at 21:59; Status DC Meropenem 500 mg/ Sodium Chloride 50 ml @ 100 mls/hr Q6HRS IV Last administered on 11/08/19at 06:15; Start 10/16/19 at 18:00; Stop 11/08/19 at 08:23; Status DC Daptomycin 500 mg/ Sodium Chloride 50 ml @ 100 mls/hr Q24H IV Last administered on 10/24/19at 21:47; Start 10/16/19 at 19:00; Stop 10/25/19 at 08:13; Status DC Sodium Chloride 80 meq/Potassium Chloride 30 meq/ Potassium Acetate 30 meq/Magnesium Sulfate 14 meq/ Multivitamins 10 ml/Chromium/ Copper/Manganese/ Seleni/Zn 1 ml/ Insulin Human Regular 15 unit/ Total Parenteral Nutrition/Amino Acids/Dextrose/ Fat Emulsion Intravenous 1,920 ml @ 80 mls/hr TPN CONT IV Last administered on 10/17/19at 22:09; Start 10/17/19 at 22:00; Stop 10/18/19 at 21:59; Status DC Heparin Sodium (Porcine) 1000 unit/Sodium Chloride 1,001 ml @ 1,001 mls/hr 1X ONCE IRR ; Start 10/18/19 at 06:00; Stop 10/18/19 at 06:59; Status DC Propofol (Diprivan) 200 mg STK-MED ONCE IV ; Start 10/18/19 at 07:44; Stop 10/18/19 at 07:44; Status DC Lidocaine HCl (Lidocaine Pf 2% Vial) 5 ml STK-MED ONCE .ROUTE ; Start 10/18/19 at 07:44; Stop 10/18/19 at 07:44; Status DC Fentanyl Citrate (Fentanyl 2ml Vial) 100 mcg STK-MED ONCE .ROUTE ; Start 10/18/19 at 07:44; Stop 10/18/19 at 07:44; Status DC Rocuronium Crete (Zemuron) 100 mg STK-MED ONCE .ROUTE ; Start 10/18/19 at 07:44; Stop 10/18/19 at 07:44; Status DC Micafungin Sodium 100 mg/Dextrose 100 ml @ 100 mls/hr Q24H IV Last administered on 11/22/19at 09:30; Start 10/18/19 at 08:30; Stop 11/23/19 at 08:20; Status DC Bupivacaine HCl/ Epinephrine Bitart (Sensorcain-Epi 0.5%-1:[id number] Mpf) 30 ml STK-MED ONCE .ROUTE ; Start 10/18/19 at 08:34; Stop 10/18/19 at 08:35; Status DC Iohexol (Omnipaque 300 Mg/ml) 50 ml STK-MED ONCE .ROUTE Last administered on 10/18/19at 13:30; Start 10/18/19 at 08:35; Stop 10/18/19 at 08:35; Status DC Sodium Chloride 80 meq/Potassium Chloride 30 meq/ Potassium Acetate 30 meq/Magnesium Sulfate 14 meq/ Multivitamins 10 ml/Chromium/ Copper/Manganese/ Seleni/Zn 1 ml/ Insulin Human Regular 15 unit/ Total Parenteral Nutrition/Amino Acids/Dextrose/ Fat Emulsion Intravenous 1,920 ml @ 80 mls/hr TPN CONT IV Last administered on 10/19/19at 01:22; Start 10/18/19 at 22:00; Stop 10/19/19 at 21:59; Status DC Phenylephrine HCl (Brayden-Synephrine Inj) 10 mg STK-MED ONCE .ROUTE ; Start 10/18/19 at 10:15; Stop 10/18/19 at 10:15; Status DC Desflurane (Suprane) 90 ml STK-MED ONCE IH ; Start 10/18/19 at 10:18; Stop 10/18/19 at 10:19; Status DC Albumin Human 500 ml @ As Directed STK-MED ONCE IV ; Start 10/18/19 at 11:06; Stop 10/18/19 at 11:06; Status DC Vasopressin (Vasostrict) 20 unit STK-MED ONCE .ROUTE ; Start 10/18/19 at 12:23; Stop 10/18/19 at 12:23; Status DC Phenylephrine HCl (Brayden-Synephrine Inj) 10 mg STK-MED ONCE .ROUTE ; Start 10/18/19 at 13:33; Stop 10/18/19 at 13:33; Status DC Phenylephrine HCl (Brayden-Synephrine Inj) 10 mg STK-MED ONCE .ROUTE ; Start 10/18/19 at 13:33; Stop 10/18/19 at 13:33; Status DC Ondansetron HCl (Zofran) 4 mg STK-MED ONCE .ROUTE ; Start 10/18/19 at 13:33; Stop 10/18/19 at 13:33; Status DC Enoxaparin Sodium (Lovenox 40mg Syringe) 40 mg Q24H SQ Last administered on 11/24/19at 08:34; Start 10/19/19 at 08:00 Sodium Chloride (Normal Saline Flush) 3 ml QSHIFT PRN IV AFTER MEDS AND BLOOD DRAWS; Start 10/18/19 at 14:45; Stop 11/21/19 at 09:45; Status DC Naloxone HCl (Narcan) 0.4 mg PRN Q2MIN PRN IV SEE INSTRUCTIONS; Start 10/18/19 at 14:45; Stop 11/21/19 at 09:45; Status DC Sodium Chloride 1,000 ml @ 25 mls/hr Q24H IV Last administered on 11/20/19at 20:55; Start 10/18/19 at 14:33; Stop 11/21/19 at 09:45; Status DC Morphine Sulfate (Morphine Sulfate) 1 mg PRN Q1HR PRN IV PAIN Last administered on 11/12/19at 18:28; Start 10/18/19 at 14:45; Stop 11/21/19 at 09:45; Status DC Midazolam HCl 100 mg/Sodium Chloride 100 ml @ 1 mls/hr CONT PRN IV SEE I/O RECORD Last administered on 10/21/19at 18:48; Start 10/18/19 at 14:45; Stop 11/21/19 at 09:45; Status DC Phenylephrine HCl (PHENYLEPHRINE in 0.9% NACL PF) 1 mg STK-MED ONCE IV ; Start 10/18/19 at 14:44; Stop 10/18/19 at 14:45; Status DC Ephedrine Sulfate (ePHEDrine PF IN SALINE SYRINGE) 50 mg STK-MED ONCE IV ; Start 10/18/19 at 14:45; Stop 10/18/19 at 14:45; Status DC Vasopressin 20 unit/Dextrose 101 ml @ 12 mls/hr CONT PRN IV SEE I/O RECORD Last administered on 10/25/19at 04:17; Start 10/18/19 at 15:30; Stop 11/21/19 at 09:45; Status DC Sodium Chloride 1,000 ml @ 1,000 mls/hr 1X ONCE IV Last administered on 10/18/19at 15:42; Start 10/18/19 at 15:45; Stop 10/18/19 at 16:44; Status DC Albumin Human 500 ml @ 125 mls/hr 1X ONCE IV ; Start 10/18/19 at 16:00; Stop 10/18/19 at 19:59; Status DC Albumin Human 500 ml @ 125 mls/hr PRN Q1HR PRN IV PER PROTOCOL; Start 10/18/19 at 15:45; Stop 11/21/19 at 09:52; Status DC Magnesium Sulfate 50 ml @ 25 mls/hr 1X ONCE IV Last administered on 10/18/19at 17:02; Start 10/18/19 at 16:30; Stop 10/18/19 at 18:29; Status DC Sodium Bicarbonate (Sodium Bicarb Adult 8.4% Syr) 50 meq STK-MED ONCE .ROUTE ; Start 10/18/19 at 16:20; Stop 10/18/19 at 16:20; Status DC Sodium Bicarbonate (Sodium Bicarb Adult 8.4% Syr) 100 meq 1X ONCE IV Last administered on 10/18/19at 17:07; Start 10/18/19 at 16:30; Stop 10/18/19 at 16:31; Status DC Sodium Bicarbonate 150 meq/Dextrose 1,150 ml @ 75 mls/hr 1X ONCE IV Last administered on 10/18/19at 20:02; Start 10/18/19 at 16:30; Stop 10/19/19 at 07:49; Status DC Sodium Chloride 80 meq/Potassium Chloride 30 meq/ Potassium Acetate 30 meq/Magnesium Sulfate 14 meq/ Multivitamins 10 ml/Chromium/ Copper/Manganese/ Seleni/Zn 1 ml/ Insulin Human Regular 15 unit/ Total Parenteral Nutrition/Amino Acids/Dextrose/ Fat Emulsion Intravenous 1,920 ml @ 80 mls/hr TPN CONT IV Last administered on 10/19/19at 23:05; Start 10/19/19 at 22:00; Stop 10/20/19 at 21:59; Status DC Sodium Chloride 100 meq/Potassium Chloride 30 meq/ Potassium Acetate 30 meq/Magnesium Sulfate 12 meq/ Multivitamins 10 ml/Chromium/ Copper/Manganese/ Seleni/Zn 1 ml/ Insulin Human Regular 15 unit/ Total Parenteral Nutrition/Amino Acids/Dextrose/ Fat Emulsion Intravenous 1,920 ml @ 80 mls/hr TPN CONT IV Last administered on 10/20/19at 21:52; Start 10/20/19 at 22:00; Stop 10/21/19 at 21:59; Status DC Sodium Chloride 100 meq/Potassium Chloride 30 meq/ Potassium Acetate 30 meq/Magnesium Sulfate 12 meq/ Multivitamins 10 ml/Chromium/ Copper/Manganese/ Seleni/Zn 1 ml/ Insulin Human Regular 15 unit/ Total Parenteral Nutrition/Amino Acids/Dextrose/ Fat Emulsion Intravenous 1,920 ml @ 80 mls/hr TPN CONT IV L ast administered on 10/21/19at 21:46; Start 10/21/19 at 22:00; Stop 10/22/19 at 21:59; Status DC Sodium Chloride 100 meq/Potassium Chloride 30 meq/ Potassium Acetate 30 meq/Magnesium Sulfate 12 meq/ Multivitamins 10 ml/Chromium/ Copper/Manganese/ Seleni/Zn 1 ml/ Insulin Human Regular 15 unit/ Total Parenteral Nutrition/Amino Acids/Dextrose/ Fat Emulsion Intravenous 1,800 ml @ 75 mls/hr TPN CONT IV Last administered on 10/22/19at 22:04; Start 10/22/19 at 22:00; Stop 10/23/19 at 21:59; Status DC Fentanyl Citrate 55 ml @ 0 mls/hr CONT PRN IV SEE COMMENTS Last administered on 10/24/19at 23:55; Start 10/22/19 at 13:00; Stop 10/27/19 at 17:28; Status DC Sodium Chloride 100 meq/Potassium Chloride 30 meq/ Potassium Acetate 30 meq/Magnesium Sulfate 12 meq/ Multivitamins 10 ml/Chromium/ Copper/Manganese/ Seleni/Zn 1 ml/ Insulin Human Regular 15 unit/ Total Parenteral Nutrition/Amino Acids/Dextrose/ Fat Emulsion Intravenous 1,680 ml @ 70 mls/hr TPN CONT IV Last administered on 10/23/19at 21:23; Start 10/23/19 at 22:00; Stop 10/24/19 at 21:59; Status DC Sodium Chloride 110 meq/Potassium Chloride 30 meq/ Potassium Acetate 30 meq/Magnesium Sulfate 15 meq/ Multivitamins 10 ml/Chromium/ Copper/Manganese/ Seleni/Zn 1 ml/ Insulin Human Regular 15 unit/ Total Parenteral Nutrition/Amino Acids/Dextrose/ Fat Emulsion Intravenous 1,680 ml @ 70 mls/hr TPN CONT IV Last administered on 10/24/19at 21:48; Start 10/24/19 at 22:00; Stop 10/25/19 at 21:59; Status DC Sodium Chloride 110 meq/Potassium Chloride 30 meq/ Potassium Acetate 30 meq/Magnesium Sulfate 15 meq/ Multivitamins 10 ml/Chromium/ Copper/Manganese/ Seleni/Zn 1 ml/ Insulin Human Regular 15 unit/ Total Parenteral Nutrition/Amino Acids/Dextrose/ Fat Emulsion Intravenous 1,680 ml @ 70 mls/hr TPN CONT IV Last administered on 10/25/19at 21:33; Start 10/25/19 at 22:00; Stop 10/26/19 at 21:59; Status DC Sodium Chloride 110 meq/Potassium Chloride 30 meq/ Potassium Acetate 30 meq/Magnesium Sulfate 15 meq/ Multivitamins 10 ml/Chromium/ Copper/Manganese/ Seleni/Zn 1 ml/ Insulin Human Regular 15 unit/ Total Parenteral Nutrition/Amino Acids/Dextrose/ Fat Emulsion Intravenous 1,680 ml @ 70 mls/hr TPN CONT IV Last administered on 10/26/19at 21:51; Start 10/26/19 at 22:00; Stop 10/27/19 at 21:59; Status DC Sodium Chloride 90 meq/Potassium Chloride 30 meq/ Potassium Acetate 30 meq/Magnesium Sulfate 15 meq/ Multivitamins 10 ml/Chromium/ Copper/Manganese/ Seleni/Zn 1 ml/ Insulin Human Regular 15 unit/ Total Parenteral Nutrition/Amino Acids/Dextrose/ Fat Emulsion Intravenous 1,680 ml @ 70 mls/hr TPN CONT IV Last administered on 10/27/19at 22:38; Start 10/27/19 at 22:00; Stop 10/28/19 at 21:59; Status DC Fentanyl Citrate 30 ml @ 0 mls/hr CONT PRN IV SEE I/O RECORD; Start 10/27/19 at 17:30; Stop 11/21/19 at 09:45; Status DC Fentanyl (Duragesic 12mcg/ Hr Patch) 1 patch Q3DAYS TD Last administered on 11/24/19at 08:34; Start 10/28/19 at 09:00 Sodium Chloride 90 meq/Potassium Chloride 30 meq/ Potassium Acetate 30 meq/Magnesium Sulfate 15 meq/ Multivitamins 10 ml/Chromium/ Copper/Manganese/ Seleni/Zn 1 ml/ Insulin Human Regular 15 unit/ Total Parenteral Nutrition/Amino Acids/Dextrose/ Fat Emulsion Intravenous 1,680 ml @ 70 mls/hr TPN CONT IV Last administered on 10/28/19at 21:59; Start 10/28/19 at 22:00; Stop 10/29/19 at 21:59; Status DC Sodium Chloride 90 meq/Potassium Chloride 30 meq/ Potassium Acetate 30 meq/Magnesium Sulfate 15 meq/ Multivitamins 10 ml/Chromium/ Copper/Manganese/ Seleni/Zn 1 ml/ Insulin Human Regular 15 unit/ Total Parenteral Nutrition/Amino Acids/Dextrose/ Fat Emulsion Intravenous 1,680 ml @ 70 mls/hr TPN CONT IV Last administered on 10/29/19at 21:35; Start 10/29/19 at 22:00; Stop 10/30/19 at 21:59; Status DC Vancomycin HCl (Vanco Per Pharmacy) 1 each PRN DAILY PRN MC SEE COMMENTS Last administered on 11/01/19at 02:46; Start 10/30/19 at 09:15; Stop 11/02/19 at 07:41; Status DC Ciprofloxacin/ Dextrose 200 ml @ 200 mls/hr Q12HR IV Last administered on 11/07/19at 21:02; Start 10/30/19 at 10:00; Stop 11/08/19 at 08:20; Status DC Vancomycin HCl 2 gm/Sodium Chloride 500 ml @ 250 mls/hr 1X ONCE IV Last administered on 10/30/19at 10:34; Start 10/30/19 at 10:00; Stop 10/30/19 at 11:59; Status DC Sodium Chloride 90 meq/Potassium Chloride 30 meq/ Potassium Acetate 30 meq/Magnesium Sulfate 15 meq/ Multivitamins 10 ml/Chromium/ Copper/Manganese/ Seleni/Zn 1 ml/ Insulin Human Regular 15 unit/ Total Parenteral Nutrition/Amino Acids/Dextrose/ Fat Emulsion Intravenous 1,680 ml @ 70 mls/hr TPN CONT IV Last administered on 10/30/19at 22:02; Start 10/30/19 at 22:00; Stop 10/31/19 at 21:59; Status DC Diphenhydramine HCl (Benadryl) 25 mg 1X ONCE IVP Last administered on 10/30/19at 14:26; Start 10/30/19 at 14:30; Stop 10/30/19 at 14:31; Status DC Vancomycin HCl 1.5 gm/Sodium Chloride 500 ml @ 250 mls/hr Q8H IV Last administered on 10/31/19at 03:08; Start 10/30/19 at 18:30; Stop 10/31/19 at 12:24; Status DC Vancomycin HCl (Vancomycin Trough Level) 1 each 1X ONCE MC Last administered on 10/31/19at 10:00; Start 10/31/19 at 10:00; Stop 10/31/19 at 10:01; Status DC Sodium Chloride 90 meq/Potassium Chloride 30 meq/ Potassium Acetate 30 meq/Magnesium Sulfate 15 meq/ Multivitamins 10 ml/Chromium/ Copper/Manganese/ Seleni/Zn 1 ml/ Insulin Human Regular 15 unit/ Total Parenteral Nutrition/Amino Acids/Dextrose/ Fat Emulsion Intravenous 1,680 ml @ 70 mls/hr TPN CONT IV Last administered on 10/31/19at 22:13; Start 10/31/19 at 22:00; Stop 11/01/19 at 21:59; Status DC Vancomycin HCl (Vancomycin Random Level) 1 each 1X ONCE MC Last administered on 11/01/19at 01:00; Start 11/01/19 at 01:00; Stop 11/01/19 at 01:01; Status DC Vancomycin HCl 1.5 gm/Sodium Chloride 500 ml @ 250 mls/hr Q12H IV Last administered on 11/01/19at 22:07; Start 11/01/19 at 10:00; Stop 11/02/19 at 07:41; Status DC Vancomycin HCl (Vancomycin Trough Level) 1 each 1X ONCE MC ; Start 11/02/19 at 09:30; Stop 11/02/19 at 09:31; Status Cancel Sodium Chloride 90 meq/Potassium Chloride 30 meq/ Potassium Acetate 30 meq/Magnesium Sulfate 15 meq/ Multivitamins 10 ml/Chromium/ Copper/Manganese/ Seleni/Zn 1 ml/ Insulin Human Regular 15 unit/ Total Parenteral Nutrition/Amino Acids/Dextrose/ Fat Emulsion Intravenous 1,680 ml @ 70 mls/hr TPN CONT IV Last administered on 11/01/19at 22:08; Start 11/01/19 at 22:00; Stop 11/02/19 at 21:59; Status DC Alteplase, Recombinant (Cathflo For Central Catheter Clearance) 1 mg 1X ONCE INT CAT Last administered on 11/01/19at 11:49; Start 11/01/19 at 11:00; Stop 11/01/19 at 11:01; Status DC Daptomycin 500 mg/ Sodium Chloride 50 ml @ 100 mls/hr Q24H IV Last administered on 11/11/19at 08:25; Start 11/02/19 at 09:00; Stop 11/11/19 at 08:38; Status DC Sodium Chloride 90 meq/Potassium Chloride 30 meq/ Potassium Acetate 30 meq/Magnesium Sulfate 15 meq/ Multivitamins 10 ml/Chromium/ Copper/Manganese/ Seleni/Zn 1 ml/ Insulin Human Regular 15 unit/ Total Parenteral Nutrition/Amino Acids/Dextrose/ Fat Emulsion Intravenous 1,680 ml @ 70 mls/hr TPN CONT IV Last administered on 11/02/19at 22:55; Start 11/02/19 at 22:00; Stop 11/03/19 at 21:59; Status DC Sodium Chloride 90 meq/Potassium Chloride 30 meq/ Potassium Acetate 30 meq/Magnesium Sulfate 15 meq/ Multivitamins 10 ml/Chromium/ Copper/Manganese/ Seleni/Zn 1 ml/ Insulin Human Regular 15 unit/ Total Parenteral Nutrition/Amino Acids/Dextrose/ Fat Emulsion Intravenous 1,680 ml @ 70 mls/hr TPN CONT IV Last administered on 11/03/19at 22:06; Start 11/03/19 at 22:00; Stop 11/04/19 at 21:59; Status DC Diphenhydramine HCl (Benadryl) 50 mg STK-MED ONCE .ROUTE ; Start 11/03/19 at 18:34; Stop 11/03/19 at 18:35; Status DC Diphenhydramine HCl (Benadryl) 25 mg 1X ONCE IM ; Start 11/03/19 at 18:45; Stop 11/03/19 at 18:46; Status DC Diphenhydramine HCl (Benadryl) 25 mg 1X ONCE IVP Last administered on 11/03/19at 18:56; Start 11/03/19 at 19:00; Stop 11/03/19 at 19:01; Status DC Alprazolam (Xanax) 0.5 mg PRN TID PRN PO ANXIETY / AGITATION Last administered on 11/10/19at 11:49; Start 11/04/19 at 08:00; Stop 11/10/19 at 15:54; Status DC Sodium Chloride 110 meq/Potassium Chloride 30 meq/ Potassium Acetate 30 meq/Magnesium Sulfate 15 meq/ Multivitamins 10 ml/Chromium/ Copper/Manganese/ Seleni/Zn 1 ml/ Insulin Human Regular 15 unit/ Total Parenteral Nutrition/Amino Acids/Dextrose/ Fat Emulsion Intravenous 1,680 ml @ 70 mls/hr TPN CONT IV Last administered on 11/04/19at 21:21; Start 11/04/19 at 22:00; Stop 11/05/19 at 21:59; Status DC Sodium Chloride 110 meq/Potassium Chloride 30 meq/ Potassium Acetate 30 meq/Magnesium Sulfate 15 meq/ Multivitamins 10 ml/Chromium/ Copper/Manganese/ Seleni/Zn 1 ml/ Insulin Human Regular 15 unit/ Total Parenteral Nutrition/Amino Acids/Dextrose/ Fat Emulsion Intravenous 1,680 ml @ 70 mls/hr TPN CONT IV Last administered on 11/05/19at 22:01; Start 11/05/19 at 22:00; Stop 11/06/19 at 21:59; Status DC Alteplase, Recombinant (Cathflo For Central Catheter Clearance) 1 mg 1X ONCE INT CAT Last administered on 11/06/19at 08:23; Start 11/06/19 at 08:15; Stop 11/06/19 at 08:16; Status DC Sodium Chloride 110 meq/Sodium Phosphate 10 mmol/ Potassium Chloride 30 meq/ Potassium Acetate 30 meq/Magnesium Sulfate 15 meq/ Multivitamins 10 ml/Chromium/ Copper/Manganese/ Seleni/Zn 1 ml/ Insulin Human Regular 15 unit/ Total Parenteral Nutrition/Amino Acids/Dextrose/ Fat Emulsion Intravenous 1,680 ml @ 70 mls/hr TPN CONT IV Last administered on 11/06/19at 22:03; Start 11/06/19 at 22:00; Stop 11/07/19 at 21:59; Status DC Sodium Chloride 120 meq/Sodium Phosphate 10 mmol/ Potassium Chloride 30 meq/ Potassium Acetate 30 meq/Magnesium Sulfate 15 meq/ Multivitamins 10 ml/Chromium/ Copper/Manganese/ Seleni/Zn 1 ml/ Insulin Human Regular 15 unit/ Total Parenteral Nutrition/Amino Acids/Dextrose/ Fat Emulsion Intravenous 1,680 ml @ 70 mls/hr TPN CONT IV Last administered on 11/07/19at 22:08; Start 11/07/19 at 22:00; Stop 11/08/19 at 21:59; Status DC Ceftazidime/ Avibactam 2.5 gm/ Sodium Chloride 100 ml @ 50 mls/hr Q8HRS IV Last administered on 11/09/19at 05:32; Start 11/08/19 at 14:00; Stop 11/09/19 at 07:48; Status DC Alteplase, Recombinant (Cathflo For Central Catheter Clearance) 1 mg 1X ONCE INT CAT Last administered on 11/08/19at 09:30; Start 11/08/19 at 09:30; Stop 11/08/19 at 09:31; Status DC Sodium Chloride 120 meq/Sodium Phosphate 10 mmol/ Potassium Chloride 30 meq/ Potassium Acetate 30 meq/Magnesium Sulfate 15 meq/ Multivitamins 10 ml/Chromium/ Copper/Manganese/ Seleni/Zn 1 ml/ Insulin Human Regular 15 unit/ Total Parenteral Nutrition/Amino Acids/Dextrose/ Fat Emulsion Intravenous 1,680 ml @ 70 mls/hr TPN CONT IV Last administered on 11/08/19at 22:11; Start 11/08/19 at 22:00; Stop 11/09/19 at 21:59; Status DC Iohexol (Omnipaque 300 Mg/ml) 75 ml 1X ONCE IV Last administered on 11/08/19at 11:30; Start 11/08/19 at 11:30; Stop 11/08/19 at 11:31; Status DC Info (CONTRAST GIVEN -- Rx MONITORING) 1 each PRN DAILY PRN MC SEE COMMENTS; Start 11/08/19 at 11:45; Stop 11/10/19 at 11:44; Status DC Alteplase, Recombinant (Cathflo For Central Catheter Clearance) 1 mg 1X ONCE INT CAT Last administered on 11/08/19at 12:17; Start 11/08/19 at 12:00; Stop 11/08/19 at 12:01; Status DC Cefepime HCl (Maxipime) 2 gm Q12HR IVP Last administered on 11/09/19at 20:53; Start 11/09/19 at 09:00; Stop 11/10/19 at 07:30; Status DC Sodium Chloride 120 meq/Sodium Phosphate 10 mmol/ Potassium Chloride 30 meq/ Potassium Acetate 30 meq/Magnesium Sulfate 15 meq/ Multivitamins 10 ml/Chromium/ Copper/Manganese/ Seleni/Zn 1 ml/ Insulin Human Regular 15 unit/ Total Paren teral Nutrition/Amino Acids/Dextrose/ Fat Emulsion Intravenous 1,680 ml @ 70 mls/hr TPN CONT IV Last administered on 11/09/19at 21:25; Start 11/09/19 at 22:00; Stop 11/10/19 at 21:59; Status DC Ceftazidime/ Avibactam 2.5 gm/ Sodium Chloride 250 ml @ 125 mls/hr Q8HRS IV Last administered on 11/23/19at 05:38; Start 11/10/19 at 08:00; Stop 11/23/19 at 08:20; Status DC Sodium Chloride 120 meq/Sodium Phosphate 10 mmol/ Potassium Chloride 30 meq/ Potassium Acetate 30 meq/Magnesium Sulfate 15 meq/ Multivitamins 10 ml/Chromium/ Copper/Manganese/ Seleni/Zn 1 ml/ Insulin Human Regular 15 unit/ Total Parenteral Nutrition/Amino Acids/Dextrose/ Fat Emulsion Intravenous 1,680 ml @ 70 mls/hr TPN CONT IV Last administered on 11/10/19at 22:35; Start 11/10/19 at 22:00; Stop 11/11/19 at 21:59; Status DC Alprazolam (Xanax) 0.5 mg PRN QID PRN PO ANXIETY / AGITATION Last administered on 11/21/19at 23:16; Start 11/10/19 at 16:00 Acetaminophen/ Hydrocodone Bitart (Lortab 5/325) 1 tab PRN Q4HRS PRN PO PAIN Last administered on 11/11/19at 19:34; Start 11/10/19 at 16:00 Sodium Chloride 120 meq/Sodium Phosphate 10 mmol/ Potassium Chloride 30 meq/ Potassium Acetate 30 meq/Magnesium Sulfate 15 meq/ Multivitamins 10 ml/Chromium/ Copper/Manganese/ Seleni/Zn 1 ml/ Insulin Human Regular 15 unit/ Total Parenteral Nutrition/Amino Acids/Dextrose/ Fat Emulsion Intravenous 1,680 ml @ 70 mls/hr TPN CONT IV Last administered on 11/11/19at 21:50; Start 11/11/19 at 22:00; Stop 11/12/19 at 21:59; Status DC Sodium Chloride 120 meq/Sodium Phosphate 10 mmol/ Potassium Chloride 30 meq/ Potassium Acetate 30 meq/Magnesium Sulfate 15 meq/ Multivitamins 10 ml/Chromium/ Copper/Manganese/ Seleni/Zn 1 ml/ Insulin Human Regular 15 unit/ Total Parenteral Nutrition/Amino Acids/Dextrose/ Fat Emulsion Intravenous 1,680 ml @ 70 mls/hr TPN CONT IV Last administered on 11/12/19at 22:14; Start 11/12/19 at 22:00; Stop 11/13/19 at 21:59; Status DC Daptomycin 500 mg/ Sodium Chloride 50 ml @ 100 mls/hr Q24H IV Last administered on 11/22/19at 09:20; Start 11/13/19 at 09:00; Stop 11/23/19 at 08:20; Status DC Sodium Chloride 120 meq/Sodium Phosphate 10 mmol/ Potassium Chloride 30 meq/ Potassium Acetate 30 meq/Magnesium Sulfate 15 meq/ Multivitamins 10 ml/Chromium/ Copper/Manganese/ Seleni/Zn 1 ml/ Insulin Human Regular 15 unit/ Total Parenteral Nutrition/Amino Acids/Dextrose/ Fat Emulsion Intravenous 1,680 ml @ 70 mls/hr TPN CONT IV ; Start 11/13/19 at 22:00; Stop 11/14/19 at 21:59; Status Cancel Amino Acids/ Glycerin/ Electrolytes 1,000 ml @ 80 mls/hr [id number] IV Last administered on 11/19/19at 18:10; Start 11/13/19 at 10:15; Stop 11/20/19 at 07:07; Status DC Iohexol (Omnipaque 300 Mg/ml) 50 ml 1X ONCE IJ ; Start 11/15/19 at 11:00; Stop 11/15/19 at 11:01; Status DC Sodium Chloride 500 ml @ 500 mls/hr 1X ONCE IV Last administered on 11/15/19at 18:30; Start 11/15/19 at 18:30; Stop 11/15/19 at 19:29; Status DC Lidocaine HCl (Buffered Lidocaine 1%) 3 ml 1X ONCE INJ ; Start 11/17/19 at 12:15; Stop 11/17/19 at 12:17; Status DC Fentanyl Citrate (Fentanyl 2ml Vial) 25 mcg PRN Q6HRS PRN IVP SEE INSTUCTIONS Last administered on 11/22/19at 15:09; Start 11/21/19 at 10:00 Sodium Chloride 1,000 ml @ 125 mls/hr Q8H IV Last administered on 11/21/19at 23:16; Start 11/21/19 at 23:21; Stop 11/22/19 at 09:23; Status DC Sodium Chloride 1,000 ml @ 350 mls/hr 1X ONCE IV Last administered on 11/21/19at 20:29; Start 11/21/19 at 20:30; Stop 11/21/19 at 23:21; Status DC Vitamin A/Vitamin D (Vitamin A & D Ointment) 1 ramu PRN Q1HR PRN TP SKIN PROTECTION Last administered on 11/23/19at 23:33; Start 11/22/19 at 09:15 Iohexol (Omnipaque 240 Mg/ml) 50 ml STK-MED ONCE .ROUTE ; Start 11/22/19 at 14:18; Stop 11/22/19 at 14:19; Status DC Lidocaine HCl (Buffered Lidocaine 1%) 3 ml STK-MED ONCE .ROUTE ; Start 11/22/19 at 14:19; Stop 11/22/19 at 14:19; Status DC Fentanyl Citrate (Fentanyl 2ml Vial) 100 mcg STK-MED ONCE .ROUTE ; Start 11/22/19 at 15:03; Stop 11/22/19 at 15:03; Status DC Lidocaine HCl (Buffered Lidocaine 1%) 5 ml 1X ONCE INJ Last administered on 11/22/19at 15:00; Start 11/22/19 at 15:45; Stop 11/22/19 at 15:46; Status DC Iohexol (Omnipaque 240 Mg/ml) 10 ml 1X ONCE IJ Last administered on 11/22/19at 15:00; Start 11/22/19 at 15:45; Stop 11/22/19 at 15:46; Status DC Multivitamins/ Minerals Therapeutic (Centrum Multivit-Mineral Liq) 5 ml DAILY PEG Last administered on 11/24/19at 08:32; Start 11/23/19 at 09:00 Alteplase, Recombinant 5 mg/ Sodium Chloride 30 ml @ 30 mls/hr 1X PRN IV SEE COMMENTS; Start 11/23/19 at 06:45; Status UNV Alteplase, Recombinant (Cathflo For Central Catheter Clearance) 1 mg 1X ONCE INT CAT Last administered on 11/23/19at 09:30; Start 11/23/19 at 07:00; Stop 11/23/19 at 07:01; Status DC Sodium Chloride 1,000 ml @ 125 mls/hr 1X ONCE IV Last administered on 11/23/19at 16:12; Start 11/23/19 at 14:30; Stop 11/23/19 at 22:29; Status DC Furosemide (Lasix) 40 mg 1X ONCE IVP Last administered on 11/23/19at 16:17; Start 11/23/19 at 14:30; Stop 11/23/19 at 14:33; Status DC Furosemide (Lasix) 40 mg [id number] IVP Last administered on 11/24/19at 08:33; Start 11/24/19 at 09:00; Stop 11/24/19 at 14:01 Sodium Chloride 1,000 ml @ 125 mls/hr 1X ONCE IV Last administered on 11/24/19at 08:20; Start 11/24/19 at 07:45; Stop 11/24/19 at 15:44 Active Scripts Active Reported Bisoprolol Fumarate 5 Mg Tablet 10 Mg PO DAILY Allergies Allergies: Coded Allergies: codeine (Verified Allergy, Intermediate, rash, 07/04/19) I S O L A T I O N *CONTACT* (Verified Allergy, Unknown, 10/24/19) CR-PSA ROS Review of System Per HPI, rest of the ROS is negative Physical Exam Physical Exam GENERAL: pt in bed, NAD HEENT: Pupils equal, oral cavity dry. OC/Op - Dry NECK: Tracheostomy , no JVD LUNGS: Diminished aeration bases,Non labored HEART: S1, S2, ABDOMEN: bowel sounds hypoactive, soft, KAYLIN drains, G-J tube. : Lind in place EXTREMITIES: Trace generalized edema,. SKIN: No signs of rash. NEURO: - Alert and responsive Vital Signs Vital Signs Date Time Temp Pulse Resp B/P (MAP) Pulse Ox O2 Delivery O2 Flow Rate FiO2 11/24/19 08:52 97 Room Air 11/24/19 08:34 18 11/24/19 07:00 97.5 109 124/79 (94) 97.5 11/23/19 20:00 2.0 Assessment & Plan Hypercalcemia - Corrected for Albumin is higher Present since 11/12 , Intermittent in past as well ,iPTH low Could be sec to prolonged hospitalization, Check Vit D Recommned Calcitonin Sub Q and Monitor Ca , dw Primary If persistent check PTHrP , start Bisphosphonates Prolonged hospitalization more than 4 months S/P Exp. 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 parapsilosis & PSAE (I-merrem/ceftazidime/AZT/cefepime)) Anemia- Chronic, stable Acute gallstone pancreatitis with persistent necrosis Ascites s/p paracentesis 08/02 & 08/23. Cholelithiasis with thickening of the gallbladder wall. JUANA- Required [employer] , resolved Acute hypoxic resp failure. trach/vent. Labs Labs Laboratory Tests Test 11/22/19 12:16 11/22/19 18:27 11/22/19 23:37 11/23/19 05:51 Glucose (Fingerstick) 137 mg/dL (70-99) 111 mg/dL (70-99) 102 mg/dL (70-99) 114 mg/dL (70-99) Test 11/23/19 06:00 11/23/19 06:40 11/23/19 12:06 11/23/19 19:10 White Blood Count 7.0 x10^3/uL (4.0-11.0) 8.2 x10^3/uL (4.0-11.0) Red Blood Count 2.09 x10^6/uL (3.50-5.40) 2.67 x10^6/uL (3.50-5.40) Hemoglobin 5.9 g/dL (12.0-15.5) 7.3 g/dL (12.0-15.5) Hematocrit 18.3 % (36.0-47.0) 22.9 % (36.0-47.0) Mean Corpuscular Volume 88 fL (79-100) 86 fL (79-100) Mean Corpuscular Hemoglobin 28 pg (25-35) 27 pg (25-35) Mean Corpuscular Hemoglobin Concent 32 g/dL (31-37) 32 g/dL (31-37) Red Cell Distribution Width 18.3 % (11.5-14.5) 18.2 % (11.5-14.5) Platelet Count 465 x10^3/uL (140-400) 593 x10^3/uL (140-400) Neutrophils (%) (Auto) 73 % (31-73) 71 % (31-73) Lymphocytes (%) (Auto) 16 % (24-48) 17 % (24-48) Monocytes (%) (Auto) 8 % (0-9) 8 % (0-9) Eosinophils (%) (Auto) 3 % (0-3) 4 % (0-3) Basophils (%) (Auto) 0 % (0-3) 1 % (0-3) Neutrophils # (Auto) 5.1 x10^3/uL (1.8-7.7) 5.8 x10^3/uL (1.8-7.7) Lymphocytes # (Auto) 1.1 x10^3/uL (1.0-4.8) 1.4 x10^3/uL (1.0-4.8) Monocytes # (Auto) 0.5 x10^3/uL (0.0-1.1) 0.7 x10^3/uL (0.0-1.1) Eosinophils # (Auto) 0.2 x10^3/uL (0.0-0.7) 0.3 x10^3/uL (0.0-0.7) Basophils # (Auto) 0.0 x10^3/uL (0.0-0.2) 0.0 x10^3/uL (0.0-0.2) Sodium Level 140 mmol/L (136-145) Potassium Level 4.1 mmol/L (3.5-5.1) Chloride Level 108 mmol/L (98-107) Carbon Dioxide Level 28 mmol/L (21-32) Anion Gap 4 (6-14) Blood Urea Nitrogen 9 mg/dL (7-20) Creatinine 0.5 mg/dL (0.6-1.0) Estimated GFR (Non- 136 (>59) Estimated GFR (Cockcroft-Gault) 131.1 BUN/Creatinine Ratio 18 (6-20) Glucose Level 114 mg/dL (70-99) Calcium Level 10.9 mg/dL (8.5-10.1) Total Bilirubin 0.3 mg/dL (0.2-1.0) Aspartate Amino Transf (AST/SGOT) 12 U/L (15-37) Alanine Aminotransferase (ALT/SGPT) 12 U/L (14-59) Alkaline Phosphatase 82 U/L (46-116) Total Protein 5.1 g/dL (6.4-8.2) Albumin 1.3 g/dL (3.4-5.0) Albumin/Globulin Ratio 0.3 (1.0-1.7) EGFR 157 (>59) PTH (Intact) Specimen Description Comment (.) Parathyroid Hormone (Intact) 2 pg/mL (15-65) Calcium (PTH Intact) 11.1 mg/dL (8.7-10.2) Creatinine (PTH Intact) 0.29 mg/dL (0.57-1.00) Phosphorus (PTH Intact) 4.3 mg/dL (3.0-4.3) Glucose (Fingerstick) 132 mg/dL (70-99) 140 mg/dL (70-99) Test 11/24/19 01:14 11/24/19 05:40 11/24/19 05:43 Glucose (Fingerstick) 136 mg/dL (70-99) 141 mg/dL (70-99) White Blood Count 9.3 x10^3/uL (4.0-11.0) Red Blood Count 2.90 x10^6/uL (3.50-5.40) Hemoglobin 8.0 g/dL (12.0-15.5) Hematocrit 25.1 % (36.0-47.0) Mean Corpuscular Volume 86 fL (79-100) Mean Corpuscular Hemoglobin 28 pg (25-35) Mean Corpuscular Hemoglobin Concent 32 g/dL (31-37) Red Cell Distribution Width 17.7 % (11.5-14.5) Platelet Count 646 x10^3/uL (140-400) Neutrophils (%) (Auto) 77 % (31-73) Lymphocytes (%) (Auto) 14 % (24-48) Monocytes (%) (Auto) 7 % (0-9) Eosinophils (%) (Auto) 2 % (0-3) Basophils (%) (Auto) 1 % (0-3) Neutrophils # (Auto) 7.2 x10^3/uL (1.8-7.7) Lymphocytes # (Auto) 1.3 x10^3/uL (1.0-4.8) Monocytes # (Auto) 0.6 x10^3/uL (0.0-1.1) Eosinophils # (Auto) 0.2 x10^3/uL (0.0-0.7) Basophils # (Auto) 0.0 x10^3/uL (0.0-0.2) Sodium Level 139 mmol/L (136-145) Potassium Level 3.7 mmol/L (3.5-5.1) Chloride Level 107 mmol/L (98-107) Carbon Dioxide Level 29 mmol/L (21-32) Anion Gap 3 (6-14) Blood Urea Nitrogen 9 mg/dL (7-20) Creatinine 0.6 mg/dL (0.6-1.0) Estimated GFR (Cockcroft-Gault) 106.3 Glucose Level 144 mg/dL (70-99) Calcium Level 11.3 mg/dL (8.5-10.1) Laboratory Tests Test 11/23/19 12:06 11/23/19 19:10 11/24/19 01:14 11/24/19 05:40 Glucose (Fingerstick) 132 mg/dL (70-99) 140 mg/dL (70-99) 136 mg/dL (70-99) White Blood Count 9.3 x10^3/uL (4.0-11.0) Red Blood Count 2.90 x10^6/uL (3.50-5.40) Hemoglobin 8.0 g/dL (12.0-15.5) Hematocrit 25.1 % (36.0-47.0) Mean Corpuscular Volume 86 fL (79-100) Mean Corpuscular Hemoglobin 28 pg (25-35) Mean Corpuscular Hemoglobin Concent 32 g/dL (31-37) Red Cell Distribution Width 17.7 % (11.5-14.5) Platelet Count 646 x10^3/uL (140-400) Neutrophils (%) (Auto) 77 % (31-73) Lymphocytes (%) (Auto) 14 % (24-48) Monocytes (%) (Auto) 7 % (0-9) Eosinophils (%) (Auto) 2 % (0-3) Basophils (%) (Auto) 1 % (0-3) Neutrophils # (Auto) 7.2 x10^3/uL (1.8-7.7) Lymphocytes # (Auto) 1.3 x10^3/uL (1.0-4.8) Monocytes # (Auto) 0.6 x10^3/uL (0.0-1.1) Eosinophils # (Auto) 0.2 x10^3/uL (0.0-0.7) Basophils # (Auto) 0.0 x10^3/uL (0.0-0.2) Sodium Level 139 mmol/L (136-145) Potassium Level 3.7 mmol/L (3.5-5.1) Chloride Level 107 mmol/L (98-107) Carbon Dioxide Level 29 mmol/L (21-32) Anion Gap 3 (6-14) Blood Urea Nitrogen 9 mg/dL (7-20) Creatinine 0.6 mg/dL (0.6-1.0) Estimated GFR (Cockcroft-Gault) 106.3 Glucose Level 144 mg/dL (70-99) Calcium Level 11.3 mg/dL (8.5-10.1) Test 11/24/19 05:43 Glucose (Fingerstick) 141 mg/dL (70-99) Review All relevant outside records, renal labs, imaging studies, telemetry/EKG's were reviewed. VERENA KENT MD Nov 24, 2019 11:20
--- NOTE | 2019-11-24 12:30 | NUR ---
SS following up with discharge planning. SS reviewed pt chart and discussed with pt RN. Pt's daughter Norma contacted SS via phone on 11/23/2019 and discussed discharge planning. Pt's daughter reported that she was sending paperwork needed for [facility] to further assist them. No paperwork received at this time. Pt is currently on room air. Wound care following for drainage sites. Pt wearing speaking valve intermittently. Pt on tube feeds. Pt [facility] with PT/OT. COVID19 negative. SS received phone contact from Adult Protective Services and discussed pt's case. Adult Protective Services coming to meet with pt in the hospital and will contact pt's children to discuss. SS will continue to follow for discharge planning.
[2019-11-24] MEDS: HYDROcodone/APAP 5/325MG 1 TAB TABLET PO PRN (13:50)
[2019-11-24 15:00] VITALS: BP 157/95
--- NOTE | 2019-11-24 15:27 | PDOC ---
SURGICAL PROGRESS NOTE DATE: 11/24/19 TIME: 15:26 Subjective up in chair no complaints Vital Signs Vital Signs Date Time Temp Pulse Resp B/P (MAP) Pulse Ox O2 Delivery O2 Flow Rate FiO2 11/24/19 13:50 20 Room Air 11/24/19 11:00 97.5 110 140/88 (105) 96 97.5 11/23/19 20:00 2.0 I&O Intake and Output 11/24/19 07:00 Intake Total 1996 ml Output Total 2950 ml Balance -954 ml Intake Oral 0 ml IV Total 675 ml Tube Feeding 1021 ml Blood Product IV Normal Saline Flush 60 ml Other 240 ml Output Urine Total 1425 ml Drainage Total 1525 ml # Bowel Movements 4 General: Alert, Oriented X3, Cooperative Abdomen: Soft, Other (g/j tube in place) Labs Laboratory Tests Test 11/22/19 18:27 11/22/19 23:37 11/23/19 05:51 11/23/19 06:00 Glucose (Fingerstick) 111 mg/dL (70-99) 102 mg/dL (70-99) 114 mg/dL (70-99) White Blood Count 7.0 x10^3/uL (4.0-11.0) Red Blood Count 2.09 x10^6/uL (3.50-5.40) Hemoglobin 5.9 g/dL (12.0-15.5) Hematocrit 18.3 % (36.0-47.0) Mean Corpuscular Volume 88 fL (79-100) Mean Corpuscular Hemoglobin 28 pg (25-35) Mean Corpuscular Hemoglobin Concent 32 g/dL (31-37) Red Cell Distribution Width 18.3 % (11.5-14.5) Platelet Count 465 x10^3/uL (140-400) Neutrophils (%) (Auto) 73 % (31-73) Lymphocytes (%) (Auto) 16 % (24-48) Monocytes (%) (Auto) 8 % (0-9) Eosinophils (%) (Auto) 3 % (0-3) Basophils (%) (Auto) 0 % (0-3) Neutrophils # (Auto) 5.1 x10^3/uL (1.8-7.7) Lymphocytes # (Auto) 1.1 x10^3/uL (1.0-4.8) Monocytes # (Auto) 0.5 x10^3/uL (0.0-1.1) Eosinophils # (Auto) 0.2 x10^3/uL (0.0-0.7) Basophils # (Auto) 0.0 x10^3/uL (0.0-0.2) Test 11/23/19 06:40 11/23/19 12:06 11/23/19 19:10 11/24/19 01:14 White Blood Count 8.2 x10^3/uL (4.0-11.0) Red Blood Count 2.67 x10^6/uL (3.50-5.40) Hemoglobin 7.3 g/dL (12.0-15.5) Hematocrit 22.9 % (36.0-47.0) Mean Corpuscular Volume 86 fL (79-100) Mean Corpuscular Hemoglobin 27 pg (25-35) Mean Corpuscular Hemoglobin Concent 32 g/dL (31-37) Red Cell Distribution Width 18.2 % (11.5-14.5) Platelet Count 593 x10^3/uL (140-400) Neutrophils (%) (Auto) 71 % (31-73) Lymphocytes (%) (Auto) 17 % (24-48) Monocytes (%) (Auto) 8 % (0-9) Eosinophils (%) (Auto) 4 % (0-3) Basophils (%) (Auto) 1 % (0-3) Neutrophils # (Auto) 5.8 x10^3/uL (1.8-7.7) Lymphocytes # (Auto) 1.4 x10^3/uL (1.0-4.8) Monocytes # (Auto) 0.7 x10^3/uL (0.0-1.1) Eosinophils # (Auto) 0.3 x10^3/uL (0.0-0.7) Basophils # (Auto) 0.0 x10^3/uL (0.0-0.2) Sodium Level 140 mmol/L (136-145) Potassium Level 4.1 mmol/L (3.5-5.1) Chloride Level 108 mmol/L (98-107) Carbon Dioxide Level 28 mmol/L (21-32) Anion Gap 4 (6-14) Blood Urea Nitrogen 9 mg/dL (7-20) Creatinine 0.5 mg/dL (0.6-1.0) Estimated GFR (Non- 136 (>59) Estimated GFR (Cockcroft-Gault) 131.1 BUN/Creatinine Ratio 18 (6-20) Glucose Level 114 mg/dL (70-99) Calcium Level 10.9 mg/dL (8.5-10.1) Total Bilirubin 0.3 mg/dL (0.2-1.0) Aspartate Amino Transf (AST/SGOT) 12 U/L (15-37) Alanine Aminotransferase (ALT/SGPT) 12 U/L (14-59) Alkaline Phosphatase 82 U/L (46-116) Total Protein 5.1 g/dL (6.4-8.2) Albumin 1.3 g/dL (3.4-5.0) Albumin/Globulin Ratio 0.3 (1.0-1.7) EGFR 157 (>59) PTH (Intact) Specimen Description Comment (.) Parathyroid Hormone (Intact) 2 pg/mL (15-65) Calcium (PTH Intact) 11.1 mg/dL (8.7-10.2) Creatinine (PTH Intact) 0.29 mg/dL (0.57-1.00) Phosphorus (PTH Intact) 4.3 mg/dL (3.0-4.3) Glucose (Fingerstick) 132 mg/dL (70-99) 140 mg/dL (70-99) 136 mg/dL (70-99) Test 11/24/19 05:40 11/24/19 05:43 White Blood Count 9.3 x10^3/uL (4.0-11.0) Red Blood Count 2.90 x10^6/uL (3.50-5.40) Hemoglobin 8.0 g/dL (12.0-15.5) Hematocrit 25.1 % (36.0-47.0) Mean Corpuscular Volume 86 fL (79-100) Mean Corpuscular Hemoglobin 28 pg (25-35) Mean Corpuscular Hemoglobin Concent 32 g/dL (31-37) Red Cell Distribution Width 17.7 % (11.5-14.5) Platelet Count 646 x10^3/uL (140-400) Neutrophils (%) (Auto) 77 % (31-73) Lymphocytes (%) (Auto) 14 % (24-48) Monocytes (%) (Auto) 7 % (0-9) Eosinophils (%) (Auto) 2 % (0-3) Basophils (%) (Auto) 1 % (0-3) Neutrophils # (Auto) 7.2 x10^3/uL (1.8-7.7) Lymphocytes # (Auto) 1.3 x10^3/uL (1.0-4.8) Monocytes # (Auto) 0.6 x10^3/uL (0.0-1.1) Eosinophils # (Auto) 0.2 x10^3/uL (0.0-0.7) Basophils # (Auto) 0.0 x10^3/uL (0.0-0.2) Sodium Level 139 mmol/L (136-145) Potassium Level 3.7 mmol/L (3.5-5.1) Chloride Level 107 mmol/L (98-107) Carbon Dioxide Level 29 mmol/L (21-32) Anion Gap 3 (6-14) Blood Urea Nitrogen 9 mg/dL (7-20) Creatinine 0.6 mg/dL (0.6-1.0) Estimated GFR (Cockcroft-Gault) 106.3 Glucose Level 144 mg/dL (70-99) Calcium Level 11.3 mg/dL (8.5-10.1) Glucose (Fingerstick) 141 mg/dL (70-99) Laboratory Tests Test 11/23/19 19:10 11/24/19 01:14 11/24/19 05:40 11/24/19 05:43 Glucose (Fingerstick) 140 mg/dL (70-99) 136 mg/dL (70-99) 141 mg/dL (70-99) White Blood Count 9.3 x10^3/uL (4.0-11.0) Red Blood Count 2.90 x10^6/uL (3.50-5.40) Hemoglobin 8.0 g/dL (12.0-15.5) Hematocrit 25.1 % (36.0-47.0) Mean Corpuscular Volume 86 fL (79-100) Mean Corpuscular Hemoglobin 28 pg (25-35) Mean Corpuscular Hemoglobin Concent 32 g/dL (31-37) Red Cell Distribution Width 17.7 % (11.5-14.5) Platelet Count 646 x10^3/uL (140-400) Neutrophils (%) (Auto) 77 % (31-73) Lymphocytes (%) (Auto) 14 % (24-48) Monocytes (%) (Auto) 7 % (0-9) Eosinophils (%) (Auto) 2 % (0-3) Basophils (%) (Auto) 1 % (0-3) Neutrophils # (Auto) 7.2 x10^3/uL (1.8-7.7) Lymphocytes # (Auto) 1.3 x10^3/uL (1.0-4.8) Monocytes # (Auto) 0.6 x10^3/uL (0.0-1.1) Eosinophils # (Auto) 0.2 x10^3/uL (0.0-0.7) Basophils # (Auto) 0.0 x10^3/uL (0.0-0.2) Sodium Level 139 mmol/L (136-145) Potassium Level 3.7 mmol/L (3.5-5.1) Chloride Level 107 mmol/L (98-107) Carbon Dioxide Level 29 mmol/L (21-32) Anion Gap 3 (6-14) Blood Urea Nitrogen 9 mg/dL (7-20) Creatinine 0.6 mg/dL (0.6-1.0) Estimated GFR (Cockcroft-Gault) 106.3 Glucose Level 144 mg/dL (70-99) Calcium Level 11.3 mg/dL (8.5-10.1) Problem List Problems Medical Problems: (1) Acute pancreatitis Status: Acute (2) Cholelithiasis Status: Acute Assessment/Plan supportive care Justicifation of Admission Dx: Justifications for Admission: Justification of Admission Dx: Yes 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 [employer]CH[employer]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
[2019-11-24] MEDS: CALCITONIN,SALMON 400 UNIT/2 ML VIAL. SQ SCH (18:18)
[2019-11-24] MEDS: ONDANSETRON PF 4 MG/2 ML VIAL. IV PRN (18:31)
--- NOTE | 2019-11-24 18:40 | NUR ---
RN Note: Shortly after administering calcitonin, pt's neck developed a red rash. Pt's family approached the desk and stated, "It's spreading." This RN observed the rash had spread from neck to face and chest. No difficulty breathing at this time. Dr. Salgado notified. No orders received. Will continue to monitor.
[2019-11-24 19:00] VITALS: BP 178/91
--- NOTE | 2019-11-24 20:35 | NUR ---
Pt is experiencing difficulty getting comfortable in any position except on her back. Multiple adjustments of pillows, wedge, legs, HOB attemted. Redness of face and neck noted after administration of calcitonin by day shift appears to be improving. Pt performed her own oral care after set-up.
[2019-11-24 23:00] VITALS: BP 143/96
[2019-11-25] VITALS (7 sets, daily range): BP systolic 123–155; BP diastolic 72–99
[2019-11-25] MEDS: IPRATRPIUM/ALBUTEROL 0.5/2.5MG 3 ML NEBU. NEB SCH ×6 (04:08→23:29)
[2019-11-25] MEDS: INSULIN LISPRO 300 UNITS/3 ML VIAL. SQ SCH ×5 (05:37→23:14)
[2019-11-25 05:46] LABS: ALBUMIN 1.8 g/dL (3.4-5.0); CALCIUM 10.9 mg/dL (8.5-10.1); CREATININE 0.7 mg/dL (0.6-1.0); GFR 88.9; PHOSPHORUS 3.4 mg/dL (2.6-4.7); POTASSIUM 3.7 mmol/L (3.5-5.1)
[2019-11-25] MEDS: ACETYLCYSTEINE 20% for RESP TX 600 MG/3 ML. NEB SCH ×2 (07:04→19:55)
[2019-11-25] MEDS: ALPRAZolam 0.5 MG TABLET PO PRN ×3 (08:01→23:06)
[2019-11-25] MEDS: ENOXAPARIN 40 MG/0.4 ML SYRINGE. SQ SCH (08:01)
[2019-11-25] MEDS: PANTOPRAZOLE IV PUSH 40 MG VIAL. IVP SCH (08:01)
[2019-11-25] MEDS: MULTIVITAMINS,THERAPEUTIC 5 ML ORAL LIQUID. PEG SCH (08:02)
[2019-11-25] MEDS: CALCITONIN,SALMON 400 UNIT/2 ML VIAL. SQ SCH (09:00)
--- NOTE | 2019-11-25 11:02 | PDOC ---
Date of Service: DATE: 11/25/19 TIME: 11:00 Objective: Objective: D/w nurse - same, lots of drainage, some loose stools. Vital Signs: Vital Signs Date Time Temp Pulse Resp B/P (MAP) Pulse Ox O2 Delivery O2 Flow Rate FiO2 11/25/19 10:50 95 Room Air 11/25/19 07:00 96.3 120 22 123/89 (100) 96.3 Labs: Laboratory Tests Test 11/24/19 18:30 11/25/19 00:27 11/25/19 05:27 Glucose (Fingerstick) 117 mg/dL (70-99) 128 mg/dL (70-99) 132 mg/dL (70-99) PE: GEN: chronically ill LUNGS: trach/room air HEART: tachycardic ABD: ostomy bag right side w/ drainage NEURO/PSYCH: awake, doesn't attempt much communication A/P: S/p pancreatic necrosectomy -- Continue support. Justicifation of Admission Dx: Justifications for Admission: Justification of Admission Dx: Yes CYNDEE FALCON Nov 25, 2019 11:02
--- NOTE | 2019-11-25 11:23 | PDOC ---
[employer] PROGRESS NOTE Date of Service DOS: DATE: 11/25/19 TIME: 11:22 Chief Complaint Chief Complaint A/P: S/P Exp. 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 parapsilosis & PSAE (I-merrem/ceftazidime/AZT/cefepime)) Leucocytosis -stable [id number] last night Acute gallstone pancreatitis with persistent necrosis Acute hypoxic Respiratory failure required mechanical ventilation Tracheostomy Thursday. bilateral pleural effusions/pulm edema s/p Throacentesis on 10/03/2019 Severe Acute gallstone pancreatitis (not a surgical candidate at this time) with necrosis Acute kidney failure now requiring dialysis Gallstones (Calculus of gallbladder with acute cholecystitis without obstruction) HTN Intractable pain Intractable nausea Covid 19 negative. Acute on chronic anemia EEG: No seizure activity Fever - intermittent ? Ileus with vomiting Abd distention - U/S and CT reviewed s/p 0.4 L of opaque, debris-containing ascites was removed 08/23 Acute pancreatitis with persistent necrosis Gallstone pancreatitis with necrosis. -CT A/P 09/23 showed multiple pseudocysts, slight larger on the right. s/p drains x , 09/24. + PSAE (MDRO-R Cefepime, Zosyn ALEXANDRA < 64) and yeast, -s/p drain 08/14. C. parapsilosis. s/p drain 08/23 + yeast & high amylase; s/p additional drain on 08/25. Drains removed. Ascites s/p paracentesis 08/02 & 08/23. C. parapsilosis JUANA. off HD. A large fluid collection in the pancreatic bed has slightly decreased in size, described below, the pancreas itself is difficult to visualize, which could be due to necrosis or obscuration of pancreatic parenchyma from the surrounding fluid collection.10/02 - 08/14 status post KAYLIN drain placement + C paropsilosis. s/p additional drains 08/25 Anemia - S/p PRBCs. Cholelithiasis with thickening of the gallbladder wall. Leucocytosis improving JUANA, hyperkalemia, Metabolic acidosis off dialysis hypocalcemia Prediabetes HTN s/p trach Hyperglycemia severe protein-caloric malnutrition Moderate to large left pleural effusion with atelectasis and collapse of most of the left lower lobe, stable Extensive retroperitoneal fluid collections persist. Percutaneous drains remain within the collections in both paracolic gutters. These communicate with additional pelvic and peripancreatic collections. History of Present Illness History of Present Illness Afebrile, weak, having more secretions not wearing a speaking valve today. Had a rash after calcitonin injection. Discussed with nephrology with her calcium moving from 11.3-10.9 will give IV bisphosphonate today, zoledronic acid. 11/23: Hb stable. Afebrile. Weak. Calcium increased. Shortness of breath is improving. Plan for calcitonin today, lasix, and saline 11/22: Hemoglobin abnormally low on repeat has been stable 7.2. Calcium up to 10.9. She is able to work with PT, she is asking to eat. Social work is been having difficulties with both of her daughters completing the financial aspect of disability paperwork which is been prolonging her stay over the past 5 months. Plan to check PTH and to treat hypercalcemia with 1 L normal saline 40 mg of IV Lasix and repeat labs in a.m. 11/21: Not wishing to wear her speaking valve. J tube having some difficulties. Afebrile. Jamaal bedside to aid her. transferred from ICU today 11/20: No overnight events. Calcium 10.7 on AM labs. She is still a bit slow to to respond, but follows commands well. Does not want speaking valve with me. Pain is better controlled in her abdomen. Wound care to see today. Will check liver function and phos levels given her calcium elevation. 11/20/2019 Patient seen and examined bedside. Positive fluid balance in the past 24 hours. Patient's chart, labs, images were reviewed and discussed with RN 11/19/2019 No acute events overnight. Seen and examined at bedside. Patient had a fever 100.2. Negative fluid balance of 150 cc. Patient's chart, labs, images were reviewed and discussed with RN 11/18/2019 Patient seen and examined at bedside. No acute events overnight. Positive fluid balance 633. Patient's chart, labs, images were reviewed and discussed with RN 11/17/2019 Patient seen and examined bedside. No acute events overnight. Patient's chart, labs, images were reviewed and discussed with RN 11/15/2019 Patient seen and examined bedside. Patient appears to be in no obvious pain. All drains have been adequately draining. Patient continues to be on TPN. Chart labs and imaging was reviewed. Negative fluid balance of 270 cc 11/14/2019 Patient seen and examined in the ICU. Patient still requires extensive care. 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 Chart, labs, imaging was reviewed. UOP with + 500cc balance. 11/11 Patient seen in and examined in the ICU She is still extremely critically ill Appears weak, frail, and pale Better color today with improved eye contact and expression Discussed with RN Chart reviewed 11/08/2019 Patient seen and examined in the ICU She is still extremely critically ill Appears extremely weak frail and pale Discussed with RN Chart reviewed Vitals/I&O Vitals/I&O: Vital Signs Date Time Temp Pulse Resp B/P (MAP) Pulse Ox O2 Delivery O2 Flow Rate FiO2 11/25/19 10:50 95 Room Air 11/25/19 07:00 96.3 120 22 123/89 (100) 96.3 I & O 11/24/19 11/24/19 11/25/19 15:00 23:00 07:00 Intake Total 100 ml 100 ml 1559 ml Output Total 1250 ml 925 ml 1050 ml Balance -1150 ml -825 ml 509 ml Physical Exam Physical Exam: GENERAL: pt in bed, appears weak -comfortable -alert HEENT: Pupils equal, oral cavity dry. OC/Op - Dry NECK: Tracheostomy - no JVD LUNGS: Diminished aeration bases, HEART: S1, S2, ABDOMEN: Less Distended mild- bowel sounds hypoactive, soft, goyal x 2, KAYLIN drains, G-J tube. Some drainage around R quad tube again and mild insertion site irritation : Lind in place EXTREMITIES: Trace generalized edema, no cyanosis. Yeast in groin area SKIN: warm touch. No signs of rash. LUE- Previous PICC site without signs of complications. PIV s clean NEURO: - Alert and responsive PICC RUE - clean EC fistula General: Alert, Oriented X3, Cooperative Heart: Other (distant heart sounds, tachycardic) Lungs: Clear Abdomen: Soft, Other (g/j tube in place) Extremities: Other (Diffuse edema) Skin: No rashes, No significant lesion Labs Labs: Laboratory Tests Test 11/24/19 18:30 11/25/19 00:27 11/25/19 05:25 11/25/19 05:27 Glucose (Fingerstick) 117 mg/dL (70-99) 128 mg/dL (70-99) 132 mg/dL (70-99) Sodium Level 142 mmol/L (136-145) Potassium Level 3.7 mmol/L (3.5-5.1) Chloride Level 107 mmol/L (98-107) Carbon Dioxide Level 29 mmol/L (21-32) Anion Gap 6 (6-14) Blood Urea Nitrogen 10 mg/dL (7-20) Creatinine 0.7 mg/dL (0.6-1.0) Estimated GFR (Cockcroft-Gault) 88.9 Glucose Level 137 mg/dL (70-99) Calcium Level 10.9 mg/dL (8.5-10.1) Phosphorus Level 3.4 mg/dL (2.6-4.7) Albumin 1.8 g/dL (3.4-5.0) Assessment and Plan Assessmemt and Plan Problems Medical Problems: (1) Acute pancreatitis Status: Acute (2) Cholelithiasis Status: Acute Comment Review of Relevant I have reviewed the following items kolby (where applicable) has been applied. Medications: Current Medications Medications (Trade) Dose Ordered Sig/Yvon Route PRN Reason Start Time Stop Time Status Last Admin Dose Admin Calcitonin [place] (Miacalcin) 400 unit BID SQ 11/24/19 18:00 11/24/19 18:18 Justicifation of Admission Dx: Justifications for Admission: Justification of Admission Dx: Yes DAVIN LANDEROS MD Nov 25, 2019 11:22
--- NOTE | 2019-11-25 11:45 | PDOC ---
Infectious Disease Note Subjective Subjective awake, says feeling ok, trach ROS ROS No nausea vomiting diarrhea Vital Sign Vital Signs Vital Signs Date Time Temp Pulse Resp B/P (MAP) Pulse Ox O2 Delivery O2 Flow Rate FiO2 11/25/19 10:50 95 Room Air 11/25/19 07:00 96.3 120 22 123/89 (100) 96.3 Physical Exam PHYSICAL EXAM GENERAL: pt in bed, appears weak -comfortable -alert HEENT: Pupils equal, oral cavity dry. OC/Op - Dry NECK: Tracheostomy - no JVD LUNGS: Diminished aeration bases, HEART: S1, S2, ABDOMEN: Less Distended mild- bowel sounds hypoactive, soft, goyal x 2, KAYLIN drains, G-J tube. Some drainage around R quad tube again and mild insertion site irritation : Lind in place EXTREMITIES: Trace generalized edema, no cyanosis. Yeast in groin area SKIN: warm touch. No signs of rash. LUE- Previous PICC site without signs of complications. PIV s clean NEURO: - Alert and responsive PICC RUE - clean EC fistula Labs Lab Laboratory Tests Test 11/24/19 18:30 11/25/19 00:27 11/25/19 05:25 11/25/19 05:27 Glucose (Fingerstick) 117 mg/dL (70-99) 128 mg/dL (70-99) 132 mg/dL (70-99) Sodium Level 142 mmol/L (136-145) Potassium Level 3.7 mmol/L (3.5-5.1) Chloride Level 107 mmol/L (98-107) Carbon Dioxide Level 29 mmol/L (21-32) Anion Gap 6 (6-14) Blood Urea Nitrogen 10 mg/dL (7-20) Creatinine 0.7 mg/dL (0.6-1.0) Estimated GFR (Cockcroft-Gault) 88.9 Glucose Level 137 mg/dL (70-99) Calcium Level 10.9 mg/dL (8.5-10.1) Phosphorus Level 3.4 mg/dL (2.6-4.7) Albumin 1.8 g/dL (3.4-5.0) Micro BC neg Objective Assessment Patient with prolonged hospitalization more than 4 months Multiple medical problems Multiple surgical procedures URINE with parapsilosis S/P Exp. 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 parapsilosis & PSAE (I-merrem/ceftazidime/AZT/cefepime)) Leukocytosis - better Loose stool but on tube feed - WBC down and no gross fever Fever - 11/11 c-diff neg Anemia Acute gallstone pancreatitis with persistent necrosis - 07/27. CT A/P Increased ascites. 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 status post KAYLIN drain placement; C. parapsilosis. s/p drain 08/23 + yeast & high amylase; s/p additional drain on 08/25. Drains removed. -08/23. fluid devyn parapsilosis fluid, amylase high - 09/23 showed multiple pseudocysts, slight larger on the right. s/p drains x 3, 09/24. + PSAE (MDRO-R Cefepime, Zosyn ALEXANDRA < 64) and yeast, -09/24 s/p drain replacement x 3; fluid cult PSAE (MDRO), yeast; treated -10/29 CT A/P shows smaller fluid collections. -722 CT abdomen and pelvis drains in place Ascites s/p paracentesis 08/02 & 08/23. C. parapsilosis Cholelithiasis with thickening of the gallbladder wall. JUANA, Hyperkalemia, Metabolic acidosis off dialysis Acute hypoxic resp failure. trach/vent. sputum 09/30 + PSAE (I merrem) ; sputum culture November 05+ for PSAE R Merrem, sensitive to cefepime Pleural effusion status post CTS left side Abdominal fluid culture MDRO Pseudomonas, yeast Sputum culture positive 11/05 for MDRO Pseudomonas Chest tube fluid positive for 11/07 Devyn Parapsilosis EC fistula Plan Plan of Care Lind changed 11/13 off antibiotics Nystatin to groin UA and urine culture Blood culture/Cath tip neg - neg C. difficile negative Monitor WBC/temp Wound care /drain management as directed Contact isolation for CRE/MDRO snf prognosis poor D/w nursing KIMMY JONES MD Nov 25, 2019 11:45
[2019-11-25] MEDS: METOPROLOL TARTRATE 5 MG/5 ML VIAL. IVP PRN (11:55)
[2019-11-25] MEDS ORDERED: ZOLEDRONICACID 4mg/100mlPREMIX 100 ML IV ONE (12:00)
--- NOTE | 2019-11-25 12:08 | PDOC ---
PULMONARY PROGRESS NOTES DATE: 11/25/19 TIME: 12:06 Subjective Resting comfortable on trach W/ room air no complaints, no overnight concerns from nursing Vitals Vital Signs Date Time Temp Pulse Resp B/P (MAP) Pulse Ox O2 Delivery O2 Flow Rate FiO2 11/25/19 11:55 140 155/89 11/25/19 11:00 97.5 22 98 Room Air 97.5 ROS: No Nausea, No Chest Pain, No Abdominal Pain, No Increase Cough General: Alert HEENT: Other (trach site CDI) Lungs: Clear Cardiovascular: S1, S2 Abdomen: Soft, Non-tender, Other (multiple KAYLIN drains ) Neuro Exam: Alert Extremities: Other (+1 BLE edema) Skin: Warm Labs Laboratory Tests Test 11/23/19 19:10 11/24/19 01:14 11/24/19 05:40 11/24/19 05:43 Glucose (Fingerstick) 140 mg/dL (70-99) 136 mg/dL (70-99) 141 mg/dL (70-99) White Blood Count 9.3 x10^3/uL (4.0-11.0) Red Blood Count 2.90 x10^6/uL (3.50-5.40) Hemoglobin 8.0 g/dL (12.0-15.5) Hematocrit 25.1 % (36.0-47.0) Mean Corpuscular Volume 86 fL (79-100) Mean Corpuscular Hemoglobin 28 pg (25-35) Mean Corpuscular Hemoglobin Concent 32 g/dL (31-37) Red Cell Distribution Width 17.7 % (11.5-14.5) Platelet Count 646 x10^3/uL (140-400) Neutrophils (%) (Auto) 77 % (31-73) Lymphocytes (%) (Auto) 14 % (24-48) Monocytes (%) (Auto) 7 % (0-9) Eosinophils (%) (Auto) 2 % (0-3) Basophils (%) (Auto) 1 % (0-3) Neutrophils # (Auto) 7.2 x10^3/uL (1.8-7.7) Lymphocytes # (Auto) 1.3 x10^3/uL (1.0-4.8) Monocytes # (Auto) 0.6 x10^3/uL (0.0-1.1) Eosinophils # (Auto) 0.2 x10^3/uL (0.0-0.7) Basophils # (Auto) 0.0 x10^3/uL (0.0-0.2) Sodium Level 139 mmol/L (136-145) Potassium Level 3.7 mmol/L (3.5-5.1) Chloride Level 107 mmol/L (98-107) Carbon Dioxide Level 29 mmol/L (21-32) Anion Gap 3 (6-14) Blood Urea Nitrogen 9 mg/dL (7-20) Creatinine 0.6 mg/dL (0.6-1.0) Estimated GFR (Cockcroft-Gault) 106.3 Glucose Level 144 mg/dL (70-99) Calcium Level 11.3 mg/dL (8.5-10.1) Test 11/24/19 18:30 11/25/19 00:27 11/25/19 05:25 11/25/19 05:27 Glucose (Fingerstick) 117 mg/dL (70-99) 128 mg/dL (70-99) 132 mg/dL (70-99) Sodium Level 142 mmol/L (136-145) Potassium Level 3.7 mmol/L (3.5-5.1) Chloride Level 107 mmol/L (98-107) Carbon Dioxide Level 29 mmol/L (21-32) Anion Gap 6 (6-14) Blood Urea Nitrogen 10 mg/dL (7-20) Creatinine 0.7 mg/dL (0.6-1.0) Estimated GFR (Cockcroft-Gault) 88.9 Glucose Level 137 mg/dL (70-99) Calcium Level 10.9 mg/dL (8.5-10.1) Phosphorus Level 3.4 mg/dL (2.6-4.7) Albumin 1.8 g/dL (3.4-5.0) Laboratory Tests Test 11/24/19 18:30 11/25/19 00:27 11/25/19 05:25 11/25/19 05:27 Glucose (Fingerstick) 117 mg/dL (70-99) 128 mg/dL (70-99) 132 mg/dL (70-99) Sodium Level 142 mmol/L (136-145) Potassium Level 3.7 mmol/L (3.5-5.1) Chloride Level 107 mmol/L (98-107) Carbon Dioxide Level 29 mmol/L (21-32) Anion Gap 6 (6-14) Blood Urea Nitrogen 10 mg/dL (7-20) Creatinine 0.7 mg/dL (0.6-1.0) Estimated GFR (Cockcroft-Gault) 88.9 Glucose Level 137 mg/dL (70-99) Calcium Level 10.9 mg/dL (8.5-10.1) Phosphorus Level 3.4 mg/dL (2.6-4.7) Albumin 1.8 g/dL (3.4-5.0) Medications Active Scripts Medications Dose Route/Sig Max Daily Dose Days Date Category Bisoprolol Fumarate 5 Mg Tablet 10 Mg PO DAILY 07/04/[address] reviewed 10/30/19, Decreased left-sided effusion after catheter placement. The right-sided effusion has increased as has atelectasis. There has been exchange or placement of multiple drainage tubes and a gastrojejunostomy tube. Both collections are smaller. No significant new abdominal fluid collection is seen. The jejunal component of the gastrojejunostomy tube appears to be looped in the proximal small bowel. ct abdomen /pelvis 09/23 1. Removal of the percutaneous pigtail drainage catheters since the prior exam. Sequela of pancreatitis with extensive pseudocysts again demonstrated, the right-sided collections are slightly larger since the prior exam, the left-sided collections are stable. See above. 2. Moderate to large left pleural effusion with atelectasis and collapse of most of the left lower lobe, stable. Small right pleural effusion is stable. 3. Gallstone. ct chest 10/02 reviewed GRAM NEG COCCOBACILLI:MANY SQUAMOUS EPI CELL:RARE PMN (WBCs):FEW Unless otherwise specified, Testing Performed by: [address] [address] For Inquires, the Physician may contact the Microbiology department at [phone] RESPIRATORY CULTURE Final Final MANY GRAM NEGATIVE RODS on 10/03/19 at 1104 FINAL ID= [[email or web address]] MICRO CHARGES PSEUDOMONAS AERUGINOSA ANTIMICROBIAL SUSCEPTIBILITY Final Comment NEG ALEXANDRA 56 PSEUDOMONAS AERUGINOSA ANTIBIOTIC RESULT INTERPRETATION AMIKACIN <=16 S AZTREONAM <=4 S CEFTAZIDIME <=1 S CIPROFLOXACIN <=0.25 S CEFEPIME <=2 S CEFTAZIDIME/AVIBACTAM <=4 S GENTAMICIN <=2 S LEVOFLOXACIN <=0.5 S Impression . IMPRESSION: 1. Acute hypoxemic respiratory failure secondary to ARDS status post trach, developed anemia 09/24, blood drainage from RLQ abdomen drain site, and surrounding firmness / developed septic shock 09/24 from abdomen source, required levo 09/24-- now on room air with trach s/p 3 new drains 09/24 with brown color drainage, --- off pressors S/P Exp. 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 parapsilosis & PSAE (I-merrem/ceftazidime/AZT/cefepime)) Leucocytosis -improved Fever---resolved Acute gallstone pancreatitis with persistent necrosis - 07/27. CT A/P Increased ascites. 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 status post KAYLIN drain placement; C. parapsilosis. s/p drain 08/23 + yeast & high amylase; s/p additional drain on 08/25. Drains removed. -08/23. fluid devyn parapsilosis fluid, amylase high - 09/23 showed multiple pseudocysts, slight larger on the right. s/p drains x 3, 09/24. + PSAE (MDRO-R Cefepime, Zosyn ALEXANDRA < 64) and yeast, -09/24 s/p drain replacement x 3; fluid cult PSAE (MDRO), yeast; treated -10/29 CT A/P shows smaller fluid collections. -722 CT abdomen and pelvis drains in place Ascites s/p paracentesis 08/02 & 08/23. C. parapsilosis Cholelithiasis with thickening of the gallbladder wall. JUANA, Hyperkalemia, Metabolic acidosis off dialysis Acute hypoxic resp failure. trach/vent. sputum 09/30 + PSAE (I merrem) ; sputum culture November 05+ for PSAE R Merrem, sensitive to cefepime Pleural effusion status post CTS left side Abdominal fluid culture MDRO Pseudomonas, yeast Sputum culture positive 11/05 for MDRO Pseudomonas Chest tube fluid positive for 11/07 Devyn Parapsilosis S/P Exploratory laparotomy, lysis of adhesions, subtotal cholecystectomy with cholangiogram, gastrojejunostomy tube placement, pancreatic necrosectomy Plan . Stable from pulmonary stand point chest tube REMOVED 11/10 Transfuse as needed, monitor HGB Antibiotics per ID, now off ABX Trach shield, as tolerated, on room air-- attempt PMV/Capped, will plan to de- cannulate next week Up to chair, PT/OT Follow surgery input-- no further surgical plans DVT GI prophylaxis f/u BC /resp cultures DVT/GI PPX Will see PRN call with any concerns VINAYAK LANDRUM MD Nov 25, 2019 12:08
--- NOTE | 2019-11-25 12:42 | PDOC ---
SURGICAL PROGRESS NOTE DATE: 11/25/19 TIME: 12:40 Subjective up in chair family present Vital Signs Vital Signs Date Time Temp Pulse Resp B/P (MAP) Pulse Ox O2 Delivery O2 Flow Rate FiO2 11/25/19 11:55 140 155/89 11/25/19 11:00 97.5 22 98 Room Air 97.5 I&O Intake and Output 11/25/19 07:00 Intake Total 1759 ml Output Total 3225 ml Balance -1466 ml Intake Oral 0 ml Tube Feeding 1258 ml Other 501 ml Output Urine Total 1550 ml Drainage Total 1675 ml # Bowel Movements 3 General: Cooperative, No acute distress HEENT: Other (trach) Heart: Other (drainage bag in place) Abdomen: Soft Labs Laboratory Tests Test 11/23/19 19:10 11/24/19 01:14 11/24/19 05:40 11/24/19 05:43 Glucose (Fingerstick) 140 mg/dL (70-99) 136 mg/dL (70-99) 141 mg/dL (70-99) White Blood Count 9.3 x10^3/uL (4.0-11.0) Red Blood Count 2.90 x10^6/uL (3.50-5.40) Hemoglobin 8.0 g/dL (12.0-15.5) Hematocrit 25.1 % (36.0-47.0) Mean Corpuscular Volume 86 fL (79-100) Mean Corpuscular Hemoglobin 28 pg (25-35) Mean Corpuscular Hemoglobin Concent 32 g/dL (31-37) Red Cell Distribution Width 17.7 % (11.5-14.5) Platelet Count 646 x10^3/uL (140-400) Neutrophils (%) (Auto) 77 % (31-73) Lymphocytes (%) (Auto) 14 % (24-48) Monocytes (%) (Auto) 7 % (0-9) Eosinophils (%) (Auto) 2 % (0-3) Basophils (%) (Auto) 1 % (0-3) Neutrophils # (Auto) 7.2 x10^3/uL (1.8-7.7) Lymphocytes # (Auto) 1.3 x10^3/uL (1.0-4.8) Monocytes # (Auto) 0.6 x10^3/uL (0.0-1.1) Eosinophils # (Auto) 0.2 x10^3/uL (0.0-0.7) Basophils # (Auto) 0.0 x10^3/uL (0.0-0.2) Sodium Level 139 mmol/L (136-145) Potassium Level 3.7 mmol/L (3.5-5.1) Chloride Level 107 mmol/L (98-107) Carbon Dioxide Level 29 mmol/L (21-32) Anion Gap 3 (6-14) Blood Urea Nitrogen 9 mg/dL (7-20) Creatinine 0.6 mg/dL (0.6-1.0) Estimated GFR (Cockcroft-Gault) 106.3 Glucose Level 144 mg/dL (70-99) Calcium Level 11.3 mg/dL (8.5-10.1) Test 11/24/19 18:30 11/25/19 00:27 11/25/19 05:25 11/25/19 05:27 Glucose (Fingerstick) 117 mg/dL (70-99) 128 mg/dL (70-99) 132 mg/dL (70-99) Sodium Level 142 mmol/L (136-145) Potassium Level 3.7 mmol/L (3.5-5.1) Chloride Level 107 mmol/L (98-107) Carbon Dioxide Level 29 mmol/L (21-32) Anion Gap 6 (6-14) Blood Urea Nitrogen 10 mg/dL (7-20) Creatinine 0.7 mg/dL (0.6-1.0) Estimated GFR (Cockcroft-Gault) 88.9 Glucose Level 137 mg/dL (70-99) Calcium Level 10.9 mg/dL (8.5-10.1) Phosphorus Level 3.4 mg/dL (2.6-4.7) Albumin 1.8 g/dL (3.4-5.0) Test 11/25/19 12:04 Glucose (Fingerstick) 150 mg/dL (70-99) Laboratory Tests Test 11/24/19 18:30 11/25/19 00:27 11/25/19 05:25 11/25/19 05:27 Glucose (Fingerstick) 117 mg/dL (70-99) 128 mg/dL (70-99) 132 mg/dL (70-99) Sodium Level 142 mmol/L (136-145) Potassium Level 3.7 mmol/L (3.5-5.1) Chloride Level 107 mmol/L (98-107) Carbon Dioxide Level 29 mmol/L (21-32) Anion Gap 6 (6-14) Blood Urea Nitrogen 10 mg/dL (7-20) Creatinine 0.7 mg/dL (0.6-1.0) Estimated GFR (Cockcroft-Gault) 88.9 Glucose Level 137 mg/dL (70-99) Calcium Level 10.9 mg/dL (8.5-10.1) Phosphorus Level 3.4 mg/dL (2.6-4.7) Albumin 1.8 g/dL (3.4-5.0) Test 11/25/19 12:04 Glucose (Fingerstick) 150 mg/dL (70-99) Problem List Problems Medical Problems: (1) Acute pancreatitis Status: Acute (2) Cholelithiasis Status: Acute Assessment/Plan d/w Dr Hamilton no additional surgery plans possible trach removal next week Justicifation of Admission Dx: Justifications for Admission: Justification of Admission Dx: Yes 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 NURSING CLINICAL DIRECTOR Nov 25, 2019 12:42
--- NOTE | 2019-11-25 12:43 | NUR ---
SS following up with discharge planning. SS reviewed pt chart and discussed with pt RN. Pt is currently on room air. Pt on tube feeds and wearing speaking valve intermittently. Per RN, pt will possibly have trach taken out on Thursday if no plans from surgery. Pt has ostomy equipment over drainage sites. Pt Max assist with PT/OT. SS will continue to follow for discharge planning.
--- NOTE | 2019-11-25 13:57 | PDOC ---
DATE OF SERVICE DATE: 11/25/19 TIME: 13:53 SUBJECTIVE ROS stable , Recieved Calcitonin last night, developed rash, am dose held Sitting up in chair, requesting anxiety med OBJECTIVE Vital Signs Vital Signs Date Time Temp Pulse Resp B/P (MAP) Pulse Ox O2 Delivery O2 Flow Rate FiO2 11/25/19 11:55 140 155/89 11/25/19 11:00 97.5 22 98 Room Air 97.5 I & 0 Intake and Output 11/25/19 07:00 Intake Total 1759 ml Output Total 3225 ml Balance -1466 ml Intake Oral 0 ml Tube Feeding 1258 ml Other 501 ml Output Urine Total 1550 ml Drainage Total 1675 ml # Bowel Movements 3 PHYSICAL EXAM Physical Exam GENERAL:sitting up in chair, NAD HEENT: Pupils equal, oral cavity dry. OC/Op - Dry NECK: Tracheostomy , no JVD LUNGS: Diminished aeration bases,Non labored HEART: S1, S2, ABDOMEN: bowel sounds hypoactive, soft, KAYLIN drains, G-J tube. : Lind in place EXTREMITIES: Trace generalized edema,. SKIN: No signs of rash. NEURO: - Alert and responsive DIAGNOSIS/ASSESSMENT Assessment & Plan Hypercalcemia - Corrected for Albumin is higher Present since 11/12 , Intermittent in past as well ,iPTH low Could be sec to prolonged hospitalization, Unable to check Vit D Devloped rash with Calcitonin and no improvement in ca , recomned switching to Bisphosphonate , Dw Primary If persistent check PTHrP Prolonged hospitalization more than 4 months S/P Exp. 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 parapsilosis & PSAE (I-merrem/ceftazidime/AZT/cefepime)) Anemia- Chronic, stable Acute gallstone pancreatitis with persistent necrosis Ascites s/p paracentesis 08/02 & 08/23. Cholelithiasis with thickening of the gallbladder wall. 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 trach/vent. COMMENT/RELEVANT DATA Meds Current Medications Medications (Trade) Dose Ordered Sig/Yvon Start Time Stop Time Status Last Admin Dose Admin Acetaminophen (Tylenol Supp) 650 mg PRN Q6HRS PRN 07/12/19 10:30 11/21/19 15:24 650 MG Acetaminophen (Tylenol) 650 mg PRN Q6HRS PRN 07/09/19 03:36 08/31/19 10:25 DC 08/04/19 19:56 650 MG Acetaminophen/ Hydrocodone Bitart (Lortab 5/325) 1 tab PRN Q4HRS PRN 11/10/19 16:00 11/24/19 13:50 1 TAB Acetylcysteine (Mucomyst 20% Resp Treatment) 600 mg RTBID 10/15/19 12:00 11/25/19 07:04 600 MG Albumin Human 500 ml @ 125 mls/hr PRN Q1HR PRN 10/18/19 15:45 11/21/19 09:52 DC Albuterol Sulfate (Ventolin Neb Soln) 2.5 mg 1X ONCE 07/05/19 22:30 07/05/19 22:31 DC 07/06/19 00:56 2.5 MG Albuterol/ Ipratropium (Duoneb) 3 ml Q4HRS 10/01/19 08:00 11/25/19 10:49 3 ML Alprazolam (Xanax) 0.5 mg PRN QID PRN 11/10/19 16:00 11/25/19 08:01 0.5 MG Alteplase, Recombinant (Cathflo For Central Catheter Clearance) 1 mg 1X ONCE 11/23/19 07:00 11/23/19 07:01 DC 11/23/19 09:30 1 MG Alteplase, Recombinant 4 mg/ Sodium Chloride 20 ml @ 20 mls/hr 1X ONCE 10/05/19 10:00 10/05/19 10:59 DC 10/05/19 10:09 20 MLS/HR Alteplase, Recombinant 5 mg/ Sodium Chloride 30 ml @ 30 mls/hr 1X PRN 11/23/19 06:45 UNV Amino Acids/ Glycerin/ Electrolytes 1,000 ml @ 80 mls/hr [id number] 11/13/19 10:15 11/20/19 07:07 DC 11/19/19 18:10 80 MLS/HR Artificial Tears (Artificial Tears) 1 drop PRN Q15MIN PRN 08/17/19 05:30 10/11/19 21:17 1 DROP Atenolol (Tenormin) 100 mg DAILY 07/05/19 09:00 07/04/19 20:08 DC Atropine Sulfate (ATROPINE 0.5mg SYRINGE) 0.5 mg PRN Q5MIN PRN 07/21/19 08:15 11/21/19 09:45 DC Barium Sulfate (Varibar Thin Liquid Apple) 148 gm 1X ONCE 09/13/19 11:45 09/13/19 11:49 DC Benzocaine (Hurricaine One) 1 spray 1X ONCE 07/08/19 14:30 07/08/19 14:31 DC 07/08/19 16:38 1 SPRAY Bisacodyl (Dulcolax Supp) 10 mg STK-MED ONCE 08/15/19 10:59 08/15/19 10:59 DC Bumetanide (Bumex) 2 mg DAILY 08/26/19 10:00 09/05/19 17:15 DC 09/05/19 08:07 2 MG Bupivacaine HCl/ Epinephrine Bitart (Sensorcain-Epi 0.5%-1:156703 Mpf) 30 ml STK-MED ONCE 10/18/19 08:34 10/18/19 08:35 DC Calcitonin [place] (Miacalcin) 400 unit BID 11/24/19 18:00 11/24/19 18:18 400 UNIT Calcium Carbonate/ Glycine (Tums) 500 mg PRN [id number] PRN 07/06/19 17:45 08/31/19 10:25 DC Calcium Chloride 1000 mg/Sodium Chloride 110 ml @ 220 mls/hr 1X ONCE 07/05/19 22:30 07/05/19 22:59 DC 07/05/19 22:11 220 MLS/HR Calcium Chloride 3000 mg/Sodium Chloride 1,030 ml @ 50 mls/hr [id number] 07/07/19 08:00 07/09/19 15:23 DC 07/09/19 02:17 50 MLS/HR Calcium Gluconate (Calcium Gluconate) 2,000 mg 1X ONCE 07/07/19 02:15 07/07/19 02:16 DC 07/07/19 02:19 2,000 MG Calcium Gluconate 1000 mg/Sodium Chloride 110 ml @ 220 mls/hr 1X ONCE 07/06/19 03:30 07/06/19 03:59 DC 07/06/19 03:21 220 MLS/HR Calcium Gluconate 2000 mg/Sodium Chloride 120 ml @ 220 mls/hr 1X ONCE 07/06/19 07:30 07/06/19 08:02 DC 07/06/19 09:05 220 MLS/HR Cefepime HCl (Maxipime) 2 gm Q12HR 11/09/19 09:00 11/10/19 07:30 DC 11/09/19 20:53 2 GM Ceftazidime/ Avibactam 2.5 gm/ Sodium Chloride 250 ml @ 125 mls/hr Q8HRS 11/10/19 08:00 11/23/19 08:20 DC 11/23/19 05:38 125 MLS/HR Cellulose (Surgicel Fibrillar 1x2) 1 each STK-MED ONCE 07/25/19 11:00 07/25/19 11:01 DC Cellulose (Surgicel Hemostat 2x14) 1 each STK-MED ONCE 08/15/19 10:58 08/15/19 10:59 DC Cellulose (Surgicel Hemostat 4x8) 1 each STK-MED ONCE 08/15/19 10:58 08/15/19 10:59 DC Chlorhexidine Gluconate (Peridex) 15 ml BID 10/01/19 09:00 10/01/19 07:58 DC Ciprofloxacin/ Dextrose 200 ml @ 200 mls/hr Q12HR 10/30/19 10:00 11/08/19 08:20 DC 11/07/19 21:02 200 MLS/HR Cyclobenzaprine HCl (Flexeril) 10 mg PRN Q6HRS PRN 08/18/19 10:45 10/28/19 19:12 10 MG Daptomycin 410 mg/ Sodium Chloride 50 ml @ 100 mls/hr Q24H 09/25/19 14:00 09/28/19 08:30 DC 09/27/19 13:33 100 MLS/HR Daptomycin 430 mg/ Sodium Chloride 50 ml @ 100 mls/hr Q24H 08/13/19 13:00 08/18/19 20:58 DC 08/18/19 13:00 100 MLS/HR Daptomycin 450 mg/ Sodium Chloride 50 ml @ 100 mls/hr Q24H 09/04/19 09:00 09/08/19 08:30 DC 09/07/19 09:25 100 MLS/HR Daptomycin 485 mg/ Sodium Chloride 50 ml @ 100 mls/hr Q24H 08/22/19 11:00 08/30/19 07:44 DC 08/29/19 13:10 100 MLS/HR Daptomycin 500 mg/ Sodium Chloride 50 ml @ 100 mls/hr Q24H 11/13/19 09:00 11/23/19 08:20 DC 11/22/19 09:20 100 MLS/HR Desflurane (Suprane) 90 ml STK-MED ONCE 10/18/19 10:18 10/18/19 10:19 DC Dexamethasone Sodium Phosphate (Decadron) 4 mg STK-MED ONCE 08/15/19 10:56 08/15/19 10:57 DC Dexmedetomidine HCl 400 mcg/ Sodium Chloride 100 ml @ 0 mls/hr CONT PRN 07/21/19 08:15 09/17/19 18:31 DC 09/17/19 12:57 8 MLS/HR Dextrose (Dextrose 50%-Water Syringe) 12.5 gm PRN Q15MIN PRN 07/04/19 09:30 Digoxin (Lanoxin) 125 mcg 1X ONCE 07/07/19 18:00 07/07/19 18:01 DC 07/07/19 17:10 125 MCG Diphenhydramine HCl (Benadryl) 25 mg 1X ONCE 11/03/19 19:00 11/03/19 19:01 DC 11/03/19 18:56 25 MG Duloxetine HCl (Cymbalta) 30 mg DAILY 08/28/19 14:00 08/31/19 10:25 DC 08/29/19 09:48 30 MG Enoxaparin Sodium (Lovenox 100mg Syringe) 100 mg Q12HR 08/09/19 21:00 UNV Enoxaparin Sodium (Lovenox 40mg Syringe) 40 mg Q24H 10/19/19 08:00 11/25/19 08:01 40 MG Ephedrine Sulfate (ePHEDrine PF IN SALINE SYRINGE) 50 mg STK-MED ONCE 10/18/19 14:45 10/18/19 14:45 DC Etomidate (Amidate) 8 mg 1X ONCE 07/11/19 08:30 07/11/19 08:31 DC 07/11/19 08:33 8 MG Fentanyl (Duragesic 12mcg/ Hr Patch) 1 patch Q3DAYS 10/28/19 09:00 11/24/19 08:34 1 PATCH Fentanyl (Duragesic 50mcg/ Hr Patch) 1 patch Q72H 09/22/19 21:00 10/01/19 12:00 DC 09/22/19 21:22 1 PATCH Fentanyl Citrate (Fentanyl 2ml Vial) 100 mcg STK-MED ONCE 11/22/19 15:03 11/22/19 15:03 DC Fentanyl Citrate (Fentanyl 5ml Vial) 250 mcg 1X ONCE 08/26/19 09:15 08/26/19 09:16 DC 08/26/19 09:30 50 MCG Flumazenil (Romazicon) 0.5 mg STK-MED ONCE 09/25/19 14:48 09/25/19 14:48 DC Fluoxetine HCl (PROzac) 20 mg QHS 09/22/19 21:00 11/24/19 21:47 20 MG Furosemide (Lasix) 40 mg [id number] 11/24/19 09:00 11/24/19 14:01 DC 11/24/19 13:51 40 MG Haloperidol Lactate (Haldol Inj) 3 mg 1X ONCE 08/22/19 14:30 08/22/19 14:31 DC 08/22/19 14:37 3 MG Heparin Sodium (Porcine) (Hep Lock Adult) 500 unit STK-MED ONCE 07/26/19 09:29 07/26/19 09:30 DC Heparin Sodium (Porcine) (Heparin Sodium) 5,000 unit Q12HR 08/15/19 21:00 08/25/19 09:59 DC 08/24/19 20:57 5,000 UNIT Heparin Sodium (Porcine) 1000 unit/Sodium Chloride 1,001 ml @ 1,001 mls/hr 1X ONCE 10/18/19 06:00 10/18/19 06:59 DC Hydromorphone HCl (Dilaudid Standard UNIFORM ATTENDANT) 12 mg STK-MED ONCE 08/19/19 15:50 08/30/19 11:24 DC Hydromorphone HCl (Dilaudid) 1 mg PRN Q4HRS PRN 08/22/19 19:00 09/05/19 17:10 DC 09/05/19 06:25 1 MG Info (CONTRAST GIVEN -- Rx MONITORING) 1 each PRN DAILY PRN 11/08/19 11:45 11/10/19 11:44 DC Info (Icu Electrolyte Protocol) 1 ea CONT PRN PRN 07/17/19 13:15 Info (PHARMACY MONITORING -- do not chart) 1 each PRN DAILY PRN 08/12/19 15:45 09/13/19 14:14 DC Info (Tpn Per Pharmacy) 1 each PRN DAILY PRN 07/06/19 12:30 UNV Insulin Human Lispro (HumaLOG) 0-9 UNITS Q6HRS 07/04/19 09:30 11/18/19 12:15 4 UNITS Insulin Human Regular (HumuLIN R VIAL) 5 unit 1X ONCE 07/05/19 22:30 07/05/19 22:31 DC 07/05/19 22:14 5 UNIT Iohexol (Omnipaque 240 Mg/ml) 10 ml 1X ONCE 11/22/19 15:45 11/22/19 15:46 DC 11/22/19 15:00 10 ML Iohexol (Omnipaque 300 Mg/ml) 50 ml 1X ONCE 11/15/19 11:00 11/15/19 11:01 DC Iohexol (Omnipaque 350 Mg/ml) 90 ml 1X ONCE 07/04/19 03:30 07/04/19 03:31 DC 07/04/19 03:25 90 ML Ketorolac Tromethamine (Toradol 30mg Vial) 30 mg 1X ONCE 07/04/19 03:00 07/04/19 03:01 DC 07/04/19 02:54 30 MG Lidocaine HCl (Buffered Lidocaine 1%) 5 ml 1X ONCE 11/22/19 15:45 11/22/19 15:46 DC 11/22/19 15:00 5 ML Lidocaine HCl (Glydo (Lidocaine) Jelly) 1 ramu 1X ONCE 07/08/19 14:30 07/08/19 14:31 DC 07/08/19 16:38 1 RAMU Lidocaine HCl (Lidocaine 1% 20ml Vial) 20 ml 1X ONCE 09/25/19 15:00 09/25/19 15:01 DC 09/25/19 15:30 20 ML Lidocaine HCl (Lidocaine Pf 2% Vial) 5 ml STK-MED ONCE 10/18/19 07:44 10/18/19 07:44 DC Lidocaine HCl (Xylocaine-Mpf 1% 2ml Vial) 2 ml PRN 1X PRN 08/15/19 07:00 08/16/19 06:59 DC Linezolid/Dextrose 300 ml @ 300 mls/hr Q12HR 09/04/19 09:00 09/07/19 08:11 DC 09/06/19 21:08 300 MLS/HR Lorazepam (Ativan Inj) 0.25 mg PRN Q4HRS PRN 09/21/19 07:30 11/25/19 11:50 0.25 MG Magnesium Sulfate 50 ml @ 25 mls/hr 1X ONCE 10/18/19 16:30 10/18/19 18:29 DC 10/18/19 17:02 25 MLS/HR Meropenem 1 gm/ Sodium Chloride 100 ml @ 200 mls/hr Q12HR 09/25/19 21:00 10/13/19 08:56 DC 10/13/19 08:27 200 MLS/HR Meropenem 500 mg/ Sodium Chloride 50 ml @ 100 mls/hr Q6HRS 10/16/19 18:00 11/08/19 08:23 DC 11/08/19 06:15 100 MLS/HR Methylprednisolone Sodium Succinate (SOLU-Medrol 125MG VIAL) 125 mg 1X ONCE 10/01/19 06:15 10/01/19 06:16 DC 10/01/19 06:26 125 MG Metoclopramide HCl (Reglan Vial) 10 mg PRN Q3HRS PRN 08/27/19 16:45 09/01/19 04:25 10 MG Metoprolol Tartrate (Lopressor Vial) 5 mg PRN Q6HRS PRN 09/28/19 09:00 11/25/19 11:55 5 MG Metronidazole 100 ml @ 100 mls/hr Q8HRS 08/02/19 10:00 08/09/19 08:10 DC 08/09/19 06:04 100 MLS/HR Micafungin Sodium 100 mg/Dextrose 100 ml @ 100 mls/hr Q24H 10/18/19 08:30 11/23/19 08:20 DC 11/22/19 09:30 100 MLS/HR Midazolam HCl (Versed) 2 mg 1X ONCE 09/25/19 15:00 09/25/19 15:01 DC 09/25/19 15:28 1 MG Midazolam HCl 100 mg/Sodium Chloride 100 ml @ 1 mls/hr CONT PRN 10/18/19 14:45 11/21/19 09:45 DC 10/21/19 18:48 10 MLS/HR Midazolam HCl 50 mg/Sodium Chloride 50 ml @ 0 mls/hr CONT PRN 07/11/19 08:15 07/16/19 15:59 DC 07/14/19 22:39 7 MLS/HR Morphine Sulfate (Morphine Sulfate) 1 mg PRN Q1HR PRN 10/18/19 14:45 11/21/19 09:45 DC 11/12/19 18:28 1 MG Multi-Ingred Cream/Lotion/Oil/ Oint (Artificial Tears Eye Ointment) 1 ramu PRN Q1HR PRN 07/13/19 17:30 09/21/19 14:39 DC 08/01/19 08:19 1 RAMU Multivitamins/ Minerals Therapeutic (Centrum Multivit-Mineral Liq) 5 ml DAILY 11/23/19 09:00 11/25/19 08:02 5 ML Naloxone HCl (Narcan) 0.4 mg PRN Q2MIN PRN 10/18/19 14:45 11/21/19 09:45 DC Norepinephrine Bitartrate 8 mg/ Dextrose 258 ml @ 13.332 mls/ hr CONT PRN 09/25/19 06:30 11/21/19 09:45 DC 10/20/19 09:09 1.6 MLS/HR Ondansetron HCl (Zofran) 4 mg STK-MED ONCE 10/18/19 13:33 10/18/19 13:33 DC Pantoprazole Sodium (PROTONIX VIAL for IV PUSH) 40 mg DAILYAC 07/04/19 11:30 11/25/19 08:01 40 MG Phenylephrine HCl (Brayden-Synephrine Inj) 10 mg STK-MED ONCE 10/18/19 13:33 10/18/19 13:33 DC Phenylephrine HCl (PHENYLEPHRINE in 0.9% NACL PF) 1 mg STK-MED ONCE 10/18/19 14:44 10/18/19 14:45 DC Piperacillin Sod/ Tazobactam Sod 3.375 gm/Sodium Chloride 50 ml @ 100 mls/hr Q6HRS 09/14/19 12:00 09/22/19 07:26 DC 09/22/19 06:10 100 MLS/HR Piperacillin Sod/ Tazobactam Sod 4.5 gm/Sodium Chloride 100 ml @ 200 mls/hr 1X ONCE 07/04/19 06:00 07/04/19 06:29 DC 07/04/19 05:44 200 MLS/HR Potassium Chloride 110 meq/ Magnesium Sulfate 20 meq/ Multivitamins 10 ml/Chromium/ Copper/Manganese/ Seleni/Zn 1 ml/ Insulin Human Regular 15 unit/ Total Parenteral Nutrition/Amino Acids/Dextrose/ Fat Emulsion Intravenous 1,800 ml @ 75 mls/hr TPN CONT 09/11/19 22:00 09/12/19 21:59 DC 09/11/19 22:48 75 MLS/HR Potassium Chloride 15 meq/ Bicarbonate Dialysis Soln w/ out KCl 5,007.5 ml @ 1,000 mls/ hr Q5H1M 07/17/19 20:00 07/21/19 13:08 DC 07/20/19 18:14 1,000 MLS/HR Potassium Chloride 20 meq/ Bicarbonate Dialysis Soln w/ out KCl 5,010 ml @ 1,000 mls/hr Q5H1M 07/13/19 16:00 07/17/19 19:59 DC 07/17/19 14:54 1,000 MLS/HR Potassium Chloride 40 meq/ Potassium Acetate 60 meq/Magnesium Sulfate 10 meq/ Multivitamins 10 ml/Chromium/ Copper/Manganese/ Seleni/Zn 1 ml/ Insulin Human Regular 20 unit/ Total Parenteral Nutrition/Amino Acids/Dextrose/ Fat Emulsion Intravenous 1,800 ml @ 75 mls/hr TPN CONT 09/22/19 22:00 09/23/19 21:59 DC 09/23/19 00:03 75 MLS/HR Potassium Chloride 70 meq/ Magnesium Sulfate 20 meq/ Multivitamins 10 ml/Chromium/ Copper/Manganese/ Seleni/Zn 1 ml/ Insulin Human Regular 15 unit/ Total Parenteral Nutrition/Amino Acids/Dextrose/ Fat Emulsion Intravenous 1,800 ml @ 75 mls/hr TPN CONT 09/16/19 22:00 09/17/19 21:59 DC 09/16/19 23:13 75 MLS/HR Potassium Chloride 75 meq/ Magnesium Sulfate 15 meq/ Multivitamins 10 ml/Chromium/ Copper/Manganese/ Seleni/Zn 0.5 ml/ Insulin Human Regular 15 unit/ Total Parenteral Nutrition/Amino Acids/Dextrose/ Fat Emulsion Intravenous 1,920 ml @ 80 mls/hr TPN CONT 08/27/19 22:00 08/28/19 21:59 DC 08/27/19 22:41 80 MLS/HR Potassium Chloride 75 meq/ Magnesium Sulfate 15 meq/Calcium Gluconate 8 meq/ Multivitamins 10 ml/Chromium/ Copper/Manganese/ Seleni/Zn 0.5 ml/ Insulin Human Regular 15 unit/ Total Parenteral Nutrition/Amino Acids/Dextrose/ Fat Emulsion Intravenous 1,920 ml @ 80 mls/hr TPN CONT 08/25/19 22:00 08/26/19 21:59 DC 08/25/19 22:28 80 MLS/HR Potassium Chloride 75 meq/ Magnesium Sulfate 15 meq/Calcium Gluconate 8 meq/ Multivitamins 10 ml/Chromium/ Copper/Manganese/ Seleni/Zn 0.5 ml/ Insulin Human Regular 20 unit/ Total Parenteral Nutrition/Amino Acids/Dextrose/ Fat Emulsion Intravenous 1,920 ml @ 80 mls/hr TPN CONT 08/24/19 22:00 08/25/19 21:59 DC 08/24/19 22:00 80 MLS/HR Potassium Chloride 75 meq/ Magnesium Sulfate 15 meq/Calcium Gluconate 8 meq/ Multivitamins 10 ml/Chromium/ Copper/Manganese/ Seleni/Zn 0.5 ml/ Insulin Human Regular 25 unit/ Total Parenteral Nutrition/Amino Acids/Dextrose/ Fat Emulsion Intravenous 1,920 ml @ 80 mls/hr TPN CONT 08/22/19 22:00 08/23/19 21:59 DC 08/22/19 23:08 80 MLS/HR Potassium Chloride 75 meq/ Magnesium Sulfate 20 meq/Calcium Gluconate 10 meq/ Multivitamins 10 ml/Chromium/ Copper/Manganese/ Seleni/Zn 0.5 ml/ Insulin Human Regular 25 unit/ Total Parenteral Nutrition/Amino Acids/Dextrose/ Fat Emulsion Intravenous 1,920 ml @ 80 mls/hr TPN CONT 08/21/19 22:00 08/22/19 21:59 DC 08/21/19 22:04 80 MLS/HR Potassium Chloride 75 meq/ Magnesium Sulfate 20 meq/Calcium Gluconate 10 meq/ Multivitamins 10 ml/Chromium/ Copper/Manganese/ Seleni/Zn 0.5 ml/ Insulin Human Regular 30 unit/ Total Parenteral Nutrition/Amino Acids/Dextrose/ Fat Emulsion Intravenous 1,920 ml @ 80 mls/hr TPN CONT 08/20/19 22:00 08/21/19 22:00 DC 08/20/19 21:51 80 MLS/HR Potassium Chloride 80 meq/ Magnesium Sulfate 20 meq/ Multivitamins 10 ml/Chromium/ Copper/Manganese/ Seleni/Zn 0.5 ml/ Insulin Human Regular 15 unit/ Total Parenteral Nutrition/Amino Acids/Dextrose/ Fat Emulsion Intravenous 1,920 ml @ 80 mls/hr TPN CONT 08/30/19 22:00 08/31/19 21:59 DC 08/30/19 21:40 80 MLS/HR Potassium Chloride 80 meq/ Magnesium Sulfate 20 meq/ Multivitamins 10 ml/Chromium/ Copper/Manganese/ Seleni/Zn 1 ml/ Insulin Human Regular 15 unit/ Total Parenteral Nutrition/Amino Acids/Dextrose/ Fat Emulsion Intravenous 1,800 ml @ 75 mls/hr TPN CONT 09/18/19 22:00 09/19/19 21:59 DC 09/18/19 21:54 75 MLS/HR Potassium Chloride 90 meq/ Magnesium Sulfate 20 meq/ Multivitamins 10 ml/Chromium/ Copper/Manganese/ Seleni/Zn 1 ml/ Insulin Human Regular 15 unit/ Total Parenteral Nutrition/Amino Acids/Dextrose/ Fat Emulsion Intravenous 1,800 ml @ 75 mls/hr TPN CONT 09/07/19 22:00 09/08/19 21:59 DC 09/07/19 22:28 75 MLS/HR Potassium Chloride 90 meq/ Magnesium Sulfate 20 meq/ Multivitamins 10 ml/Chromium/ Copper/Manganese/ Seleni/Zn 1 ml/ Insulin Human Regular 20 unit/ Total Parenteral Nutrition/Amino Acids/Dextrose/ Fat Emulsion Intravenous 1,800 ml @ 75 mls/hr TPN CONT 09/21/19 22:00 09/22/19 21:59 DC 09/21/19 23:13 75 MLS/HR Potassium Chloride/Water 100 ml @ 100 mls/hr Q1H 10/05/19 08:00 10/05/19 09:59 DC 10/05/19 09:12 100 MLS/HR Potassium Phosphate 20 mmol/ Sodium Chloride 106.6667 ml @ 51.667 m... 1X ONCE 07/13/19 13:00 07/13/19 15:03 DC 07/13/19 12:51 51.667 MLS/HR Potassium Acetate 30 meq/Magnesium Sulfate 14 meq/ Multivitamins 10 ml/Chromium/ Copper/Manganese/ Seleni/Zn 1 ml/ Insulin Human Regular 15 unit/ Sodium Chloride 20 meq/Potassium Chloride 30 meq/ Total Parenteral Nutrition/Amino Acids/Dextrose/ Fat Emulsion Intravenous 1,920 ml @ 80 mls/hr TPN CONT 10/11/19 22:00 10/12/19 21:59 DC 10/11/19 21:46 80 MLS/HR Potassium Acetate 30 meq/Magnesium Sulfate 20 meq/ Calcium Gluconate 10 meq/ Multivitamins 10 ml/Chromium/ Copper/Manganese/ Seleni/Zn 0.5 ml/ Insulin Human Regular 30 unit/ Potassium Chloride 30 meq/ Total Parenteral Nutrition/Amino Acids/Dextrose/ Fat Emulsion Intravenous 1,920 ml @ 80 mls/hr TPN CONT 08/19/19 22:00 08/20/19 21:59 DC 08/19/19 22:34 80 MLS/HR Potassium Acetate 40 meq/Magnesium Sulfate 10 meq/ Multivitamins 10 ml/Chromium/ Copper/Manganese/ Seleni/Zn 1 ml/ Insulin Human Regular 20 unit/ Total Parenteral Nutrition/Amino Acids/Dextrose/ Fat Emulsion Intravenous 1,920 ml @ 80 mls/hr TPN CONT 10/04/19 22:00 10/05/19 21:59 DC 10/04/19 21:32 80 MLS/HR Potassium Acetate 40 meq/Magnesium Sulfate 5 meq/ Multivitamins 10 ml/Chromium/ Copper/Manganese/ Seleni/Zn 1 ml/ Insulin Human Regular 30 unit/ Total Parenteral Nutrition/Amino Acids/Dextrose/ Fat Emulsion Intravenous 1,920 ml @ 80 mls/hr TPN CONT 10/03/19 22:00 10/04/19 19:34 DC 10/03/19 21:54 80 MLS/HR Potassium Acetate 55 meq/Magnesium Sulfate 20 meq/ Calcium Gluconate 10 meq/ Multivitamins 10 ml/Chromium/ Copper/Manganese/ Seleni/Zn 0.5 ml/ Insulin Human Regular 30 unit/ Total Parenteral Nutrition/Amino Acids/Dextrose/ Fat Emulsion Intravenous 1,920 ml @ 80 mls/hr TPN CONT 08/18/19 22:00 08/19/19 21:59 DC 08/19/19 01:00 80 MLS/HR Potassium Acetate 55 meq/Magnesium Sulfate 20 meq/ Calcium Gluconate 10 meq/ Multivitamins 10 ml/Chromium/ Copper/Manganese/ Seleni/Zn 0.5 ml/ Insulin Human Regular 35 unit/ Total Parenteral Nutrition/Amino Acids/Dextrose/ Fat Emulsion Intravenous 1,920 ml @ 80 mls/hr TPN CONT 08/16/19 22:00 08/17/19 21:59 DC 08/16/19 22:02 80 MLS/HR Potassium Acetate 60 meq/Magnesium Sulfate 10 meq/ Multivitamins 10 ml/Chromium/ Copper/Manganese/ Seleni/Zn 1 ml/ Insulin Human Regular 20 unit/ Total Parenteral Nutrition/Amino Acids/Dextrose/ Fat Emulsion Intravenous 1,920 ml @ 80 mls/hr TPN CONT 10/05/19 22:00 10/06/19 21:59 DC 10/05/19 21:55 80 MLS/HR Potassium Acetate 60 meq/Magnesium Sulfate 14 meq/ Multivitamins 10 ml/Chromium/ Copper/Manganese/ Seleni/Zn 1 ml/ Insulin Human Regular 15 unit/ Sodium Chloride 20 meq/Total Parenteral Nutrition/Amino Acids/Dextrose/ Fat Emulsion Intravenous 1,920 ml @ 80 mls/hr TPN CONT 10/10/19 22:00 10/11/19 21:59 DC 10/10/19 21:54 80 MLS/HR Potassium Acetate 60 meq/Magnesium Sulfate 14 meq/ Multivitamins 10 ml/Chromium/ Copper/Manganese/ Seleni/Zn 1 ml/ Insulin Human Regular 15 unit/ Total Parenteral Nutrition/Amino Acids/Dextrose/ Fat Emulsion Intravenous 1,920 ml @ 80 mls/hr TPN CONT 10/09/19 22:00 10/10/19 21:59 DC 10/09/19 22:22 80 MLS/HR Potassium Acetate 60 meq/Magnesium Sulfate 14 meq/ Multivitamins 10 ml/Chromium/ Copper/Manganese/ Seleni/Zn 1 ml/ Insulin Human Regular 20 unit/ Total Parenteral Nutrition/Amino Acids/Dextrose/ Fat Emulsion Intravenous 1,920 ml @ 80 mls/hr TPN CONT 10/06/19 22:00 10/07/19 21:59 DC 10/06/19 22:26 80 MLS/HR Potassium Acetate 60 meq/Magnesium Sulfate 5 meq/ Multivitamins 10 ml/Chromium/ Copper/Manganese/ Seleni/Zn 1 ml/ Insulin Human Regular 30 unit/ Total Parenteral Nutrition/Amino Acids/Dextrose/ Fat Emulsion Intravenous 1,920 ml @ 80 mls/hr TPN CONT 09/24/19 22:00 09/25/19 21:59 DC 09/24/19 21:54 80 MLS/HR Potassium Acetate 65 meq/Magnesium Sulfate 20 meq/ Calcium Gluconate 10 meq/ Multivitamins 10 ml/Chromium/ Copper/Manganese/ Seleni/Zn 0.5 ml/ Insulin Human Regular 30 unit/ Total Parenteral Nutrition/Amino Acids/Dextrose/ Fat Emulsion Intravenous 1,920 ml @ 80 mls/hr TPN CONT 08/17/19 22:00 08/18/19 21:59 DC 08/17/19 22:22 80 MLS/HR Potassium Acetate 80 meq/Magnesium Sulfate 5 meq/ Multivitamins 10 ml/Chromium/ Copper/Manganese/ Seleni/Zn 1 ml/ Insulin Human Regular 20 unit/ Total Parenteral Nutrition/Amino Acids/Dextrose/ Fat Emulsion Intravenous 1,920 ml @ 80 mls/hr TPN CONT 09/23/19 22:00 09/24/19 21:59 DC 09/23/19 21:59 80 MLS/HR Prochlorperazine Edisylate (Compazine) 5 mg PACU PRN PRN 08/15/19 07:00 08/16/19 06:59 DC Propofol (Diprivan) 200 mg STK-MED ONCE 10/18/19 07:44 10/18/19 07:44 DC Ringer's Solution 1,000 ml @ 30 mls/hr Q24H 08/15/19 07:00 08/15/19 18:59 DC Rocuronium [place] (Zemuron) 100 mg STK-MED ONCE 10/18/19 07:44 10/18/19 07:44 DC Saliva Substitute (Biotene Moisturizing Mouth) 2 spray PRN Q15MIN PRN 09/08/19 11:00 Sevoflurane (Ultane) 60 ml STK-MED ONCE 08/15/19 12:26 08/15/19 12:27 DC Sodium Bicarbonate 150 meq/Dextrose 1,150 ml @ 75 mls/hr 1X ONCE 10/18/19 16:30 10/19/19 07:49 DC 10/18/19 20:02 75 MLS/HR Sodium Bicarbonate 50 meq/Sodium Chloride 1,050 ml @ 75 mls/hr Q14H 07/06/19 07:30 07/11/19 10:28 DC 07/10/19 21:10 75 MLS/HR Sodium Acetate 50 meq/Potassium Acetate 55 meq/ Magnesium Sulfate 20 meq/Calcium Gluconate 10 meq/ Multivitamins 10 ml/Chromium/ Copper/Manganese/ Seleni/Zn 0.5 ml/ Insulin Human Regular 35 unit/ Total Parenteral Nutrition/Amino Acids/Dextrose/ Fat Emulsion Intravenous 1,800 ml @ 75 mls/hr TPN CONT 08/13/19 22:00 08/14/19 21:59 DC 08/13/19 22:03 75 MLS/HR Sodium Bicarbonate (Sodium Bicarb Adult 8.4% Syr) 100 meq 1X ONCE 10/18/19 16:30 10/18/19 16:31 DC 10/18/19 17:07 100 MEQ Sodium Chloride 1,000 ml @ 125 mls/hr 1X ONCE 11/24/19 07:45 11/24/19 15:44 DC 11/24/19 08:20 125 MLS/HR Sodium Chloride (Normal Saline Flush) 3 ml QSHIFT PRN 10/18/19 14:45 11/21/19 09:45 DC Sodium Chloride 80 meq/Potassium Chloride 30 meq/ Potassium Acetate 30 meq/Magnesium Sulfate 14 meq/ Multivitamins 10 ml/Chromium/ Copper/Manganese/ Seleni/Zn 1 ml/ Insulin Human Regular 15 unit/ Total Parenteral Nutrition/Amino Acids/Dextrose/ Fat Emulsion Intravenous 1,920 ml @ 80 mls/hr TPN CONT 10/19/19 22:00 10/20/19 21:59 DC 10/19/19 23:05 80 MLS/HR Sodium Chloride 90 meq/Calcium Gluconate 10 meq/ Multivitamins 10 ml/Chromium/ Copper/Manganese/ Seleni/Zn 0.5 ml/ Total Parenteral Nutrition/Amino Acids/Dextrose/ Fat Emulsion Intravenous 1,512 ml @ 63 mls/hr TPN CONT 07/06/19 22:00 07/07/19 21:59 DC 07/06/19 22:06 63 MLS/HR Sodium Chloride 90 meq/Calcium Gluconate 10 meq/ Multivitamins 10 ml/Chromium/ Copper/Manganese/ Seleni/Zn 1 ml/ Total Parenteral Nutrition/Amino Acids/Dextrose/ Fat Emulsion Intravenous 55.005 ml @ 2.292 mls/hr TPN CONT 07/06/19 22:00 07/06/19 12:33 DC Sodium Chloride 90 meq/Magnesium Sulfate 10 meq/ Calcium Gluconate 20 meq/ Multivitamins 10 ml/Chromium/ Copper/Manganese/ Seleni/Zn 0.5 ml/ Total Parenteral Nutrition/Amino Acids/Dextrose/ Fat Emulsion Intravenous 1,512 ml @ 63 mls/hr TPN CONT 07/07/19 22:00 07/08/19 21:59 DC 07/07/19 22:25 63 MLS/HR Sodium Chloride 90 meq/Magnesium Sulfate 12 meq/ Calcium Gluconate 15 meq/ Multivitamins 10 ml/Chromium/ Copper/Manganese/ Seleni/Zn 0.5 ml/ Insulin Human Regular 25 unit/ Total Parenteral Nutrition/Amino Acids/Dextrose/ Fat Emulsion Intravenous 1,400 ml @ 58.333 mls/ hr TPN CONT 07/27/19 22:00 07/28/19 21:59 DC 07/27/19 21:41 58.333 MLS/HR Sodium Chloride 90 meq/Potassium Chloride 15 meq/ Magnesium Sulfate 12 meq/Calcium Gluconate 15 meq/ Multivitamins 10 ml/Chromium/ Copper/Manganese/ Seleni/Zn 0.5 ml/ Insulin Human Regular 25 unit/ Total Parenteral Nutrition/Amino Acids/Dextrose/ Fat Emulsion Intravenous 1,400 ml @ 58.333 mls/ hr TPN CONT 07/26/19 22:00 07/27/19 21:59 DC 07/26/19 22:13 58.333 MLS/HR Sodium Chloride 90 meq/Potassium Chloride 15 meq/ Potassium Phosphate 10 mmol/ Magnesium Sulfate 8 meq/Calcium Gluconate 15 meq/ Multivitamins 10 ml/Chromium/ Copper/Manganese/ Seleni/Zn 0.5 ml/ Insulin Human Regular 25 unit/ Total Parenteral Nutrition/Amino Acids/Dextrose/ Fat Emulsion Intravenous 1,400 ml @ 58.333 mls/ hr TPN CONT 07/24/19 22:00 07/25/19 21:59 DC 07/24/19 21:20 58.333 MLS/HR Sodium Chloride 90 meq/Potassium Chloride 15 meq/ Potassium Phosphate 10 mmol/ Magnesium Sulfate 10 meq/Calcium Gluconate 20 meq/ Multivitamins 10 ml/Chromium/ Copper/Manganese/ Seleni/Zn 0.5 ml/ Total Parenteral Nutrition/Amino Acids/Dextrose/ Fat Emulsion Intravenous 1,400 ml @ 58.333 mls/ hr TPN CONT 07/11/19 22:00 07/12/19 21:59 DC 07/11/19 21:42 58.333 MLS/HR Sodium Chloride 90 meq/Potassium Chloride 15 meq/ Potassium Phosphate 10 mmol/ Magnesium Sulfate 12 meq/Calcium Gluconate 15 meq/ Multivitamins 10 ml/Chromium/ Copper/Manganese/ Seleni/Zn 0.5 ml/ Insulin Human Regular 25 unit/ Total Parenteral Nutrition/Amino Acids/Dextrose/ Fat Emulsion Intravenous 1,400 ml @ 58.333 mls/ hr TPN CONT 07/25/19 22:00 07/26/19 21:59 DC 07/25/19 22:24 58.333 MLS/HR Sodium Chloride 90 meq/Potassium Chloride 15 meq/ Potassium Phosphate 15 mmol/ Magnesium Sulfate 10 meq/Calcium Gluconate 15 meq/ Multivitamins 10 ml/Chromium/ Copper/Manganese/ Seleni/Zn 0.5 ml/ Total Parenteral Nutrition/Amino Acids/Dextrose/ Fat Emulsion Intravenous 1,400 ml @ 58.333 mls/ hr TPN CONT 07/12/19 22:00 07/13/19 21:59 DC 07/12/19 22:17 58.333 MLS/HR Sodium Chloride 90 meq/Potassium Chloride 15 meq/ Potassium Phosphate 15 mmol/ Magnesium Sulfate 10 meq/Calcium Gluconate 20 meq/ Multivitamins 10 ml/Chromium/ Copper/Manganese/ Seleni/Zn 0.5 ml/ Total Parenteral Nutrition/Amino Acids/Dextrose/ Fat Emulsion Intravenous 1,200 ml @ 50 mls/hr TPN CONT 07/10/19 22:00 07/10/19 14:17 DC Sodium Chloride 90 meq/Potassium Chloride 15 meq/ Potassium Phosphate 18 mmol/ Magnesium Sulfate 8 meq/Calcium Gluconate 15 meq/ Multivitamins 10 ml/Chromium/ Copper/Manganese/ Seleni/Zn 0.5 ml/ Insulin Human Regular 10 unit/ Total Parenteral Nutrition/Amino Acids/Dextrose/ Fat Emulsion Intravenous 1,400 ml @ 58.333 mls/ hr TPN CONT 07/15/19 22:00 07/16/19 21:59 DC 07/15/19 21:43 58.333 MLS/HR Sodium Chloride 90 meq/Potassium Chloride 15 meq/ Potassium Phosphate 18 mmol/ Magnesium Sulfate 8 meq/Calcium Gluconate 15 meq/ Multivitamins 10 ml/Chromium/ Copper/Manganese/ Seleni/Zn 0.5 ml/ Insulin Human Regular 15 unit/ Total Parenteral Nutrition/Amino Acids/Dextrose/ Fat Emulsion Intravenous 1,400 ml @ 58.333 mls/ hr TPN CONT 07/18/19 22:00 07/19/19 21:59 DC 07/18/19 21:47 58.333 MLS/HR Sodium Chloride 90 meq/Potassium Chloride 15 meq/ Potassium Phosphate 18 mmol/ Magnesium Sulfate 8 meq/Calcium Gluconate 15 meq/ Multivitamins 10 ml/Chromium/ Copper/Manganese/ Seleni/Zn 0.5 ml/ Insulin Human Regular 20 unit/ Total Parenteral Nutrition/Amino Acids/Dextrose/ Fat Emulsion Intravenous 1,400 ml @ 58.333 mls/ hr TPN CONT 07/21/19 22:00 07/22/19 21:59 DC 07/21/19 22:45 58.333 MLS/HR Sodium Chloride 90 meq/Potassium Chloride 15 meq/ Potassium Phosphate 18 mmol/ Magnesium Sulfate 8 meq/Calcium Gluconate 15 meq/ Multivitamins 10 ml/Chromium/ Copper/Manganese/ Seleni/Zn 0.5 ml/ Total Parenteral Nutrition/Amino Acids/Dextrose/ Fat Emulsion Intravenous 1,400 ml @ 58.333 mls/ hr TPN CONT 07/14/19 22:00 07/15/19 21:59 DC 07/14/19 22:00 58.333 MLS/HR Sodium Chloride 90 meq/Potassium Chloride 30 meq/ Potassium Acetate 30 meq/Magnesium Sulfate 15 meq/ Multivitamins 10 ml/Chromium/ Copper/Manganese/ Seleni/Zn 1 ml/ Insulin Human Regular 15 unit/ Total Parenteral Nutrition/Amino Acids/Dextrose/ Fat Emulsion Intravenous 1,680 ml @ 70 mls/hr TPN CONT 11/03/19 22:00 11/04/19 21:59 DC 11/03/19 22:06 70 MLS/HR Sodium Chloride 90 meq/Potassium Phosphate 15 mmol/ Magnesium Sulfate 12 meq/Calcium Gluconate 15 meq/ Multivitamins 10 ml/Chromium/ Copper/Manganese/ Seleni/Zn 0.5 ml/ Insulin Human Regular 30 unit/ Total Parenteral Nutrition/Amino Acids/Dextrose/ Fat Emulsion Intravenous 1,400 ml @ 58.333 mls/ hr TPN CONT 07/29/19 22:00 07/30/19 21:59 DC 07/29/19 21:49 58.333 MLS/HR Sodium Chloride 90 meq/Potassium Phosphate 15 mmol/ Magnesium Sulfate 12 meq/Calcium Gluconate 15 meq/ Multivitamins 10 ml/Chromium/ Copper/Manganese/ Seleni/Zn 0.5 ml/ Insulin Human Regular 40 unit/ Total Parenteral Nutrition/Amino Acids/Dextrose/ Fat Emulsion Intravenous 1,400 ml @ 58.333 mls/ hr TPN CONT 07/30/19 22:00 07/31/19 21:59 DC 07/30/19 21:21 58.333 MLS/HR Sodium Chloride 90 meq/Potassium Phosphate 19 mmol/ Magnesium Sulfate 12 meq/Calcium Gluconate 15 meq/ Multivitamins 10 ml/Chromium/ Copper/Manganese/ Seleni/Zn 0.5 ml/ Insulin Human Regular 40 unit/ Total Parenteral Nutrition/Amino Acids/Dextrose/ Fat Emulsion Intravenous 1,400 ml @ 58.333 mls/ hr TPN CONT 07/31/19 22:00 08/01/19 21:59 DC 07/31/19 21:54 58.333 MLS/HR Sodium Chloride 90 meq/Potassium Phosphate 5 mmol/ Magnesium Sulfate 12 meq/Calcium Gluconate 15 meq/ Multivitamins 10 ml/Chromium/ Copper/Manganese/ Seleni/Zn 0.5 ml/ Insulin Human Regular 30 unit/ Total Parenteral Nutrition/Amino Acids/Dextrose/ Fat Emulsion Intravenous 1,400 ml @ 58.333 mls/ hr TPN CONT 07/28/19 22:00 07/29/19 21:59 DC 07/28/19 22:08 58.333 MLS/HR Sodium Chloride 100 meq/Potassium Chloride 30 meq/ Potassium Acetate 30 meq/Magnesium Sulfate 12 meq/ Multivitamins 10 ml/Chromium/ Copper/Manganese/ Seleni/Zn 1 ml/ Insulin Human Regular 15 unit/ Total Parenteral Nutrition/Amino Acids/Dextrose/ Fat Emulsion Intravenous 1,680 ml @ 70 mls/hr TPN CONT 10/23/19 22:00 10/24/19 21:59 DC 10/23/19 21:23 70 MLS/HR Sodium Chloride 100 meq/Potassium Chloride 40 meq/ Magnesium Sulfate 15 meq/Calcium Gluconate 15 meq/ Multivitamins 10 ml/Chromium/ Copper/Manganese/ Seleni/Zn 0.5 ml/ Insulin Human Regular 35 unit/ Total Parenteral Nutrition/Amino Acids/Dextrose/ Fat Emulsion Intravenous 1,400 ml @ 58.333 mls/ hr TPN CONT 08/07/19 22:00 08/08/19 21:59 DC 08/07/19 22:46 58.333 MLS/HR Sodium Chloride 100 meq/Potassium Chloride 40 meq/ Magnesium Sulfate 20 meq/Calcium Gluconate 10 meq/ Multivitamins 10 ml/Chromium/ Copper/Manganese/ Seleni/Zn 0.5 ml/ Insulin Human Regular 35 unit/ Total Parenteral Nutrition/Amino Acids/Dextrose/ Fat Emulsion Intravenous 1,400 ml @ 58.333 mls/ hr TPN CONT 08/11/19 22:00 08/12/19 21:59 DC 08/12/19 00:06 58.333 MLS/HR Sodium Chloride 100 meq/Potassium Chloride 40 meq/ Magnesium Sulfate 20 meq/Calcium Gluconate 15 meq/ Multivitamins 10 ml/Chromium/ Copper/Manganese/ Seleni/Zn 0.5 ml/ Insulin Human Regular 35 unit/ Total Parenteral Nutrition/Amino Acids/Dextrose/ Fat Emulsion Intravenous 1,400 ml @ 58.333 mls/ hr TPN CONT 08/10/19 22:00 08/11/19 21:59 DC 08/10/19 22:27 58.333 MLS/HR Sodium Chloride 100 meq/Potassium Phosphate 10 mmol/ Magnesium Sulfate 12 meq/Calcium Gluconate 15 meq/ Multivitamins 10 ml/Chromium/ Copper/Manganese/ Seleni/Zn 0.5 ml/ Insulin Human Regular 35 unit/ Potassium Chloride 20 meq/ Total Parenteral Nutrition/Amino Acids/Dextrose/ Fat Emulsion Intravenous 1,400 ml @ 58.333 mls/ hr TPN CONT 08/04/19 22:00 08/05/19 21:59 DC 08/04/19 22:10 58.333 MLS/HR Sodium Chloride 100 meq/Potassium Phosphate 19 mmol/ Magnesium Sulfate 12 meq/Calcium Gluconate 15 meq/ Multivitamins 10 ml/Chromium/ Copper/Manganese/ Seleni/Zn 0.5 ml/ Insulin Human Regular 40 unit/ Potassium Chloride 20 meq/ Total Parenteral Nutrition/Amino Acids/Dextrose/ Fat Emulsion Intravenous 1,400 ml @ 58.333 mls/ hr TPN CONT 08/03/19 22:00 08/04/19 21:59 DC 08/03/19 21:20 58.333 MLS/HR Sodium Chloride 100 meq/Potassium Phosphate 5 mmol/ Magnesium Sulfate 12 meq/Calcium Gluconate 15 meq/ Multivitamins 10 ml/Chromium/ Copper/Manganese/ Seleni/Zn 0.5 ml/ Insulin Human Regular 35 unit/ Potassium Chloride 20 meq/ Total Parenteral Nutrition/Amino Acids/Dextrose/ Fat Emulsion Intravenous 1,400 ml @ 58.333 mls/ hr TPN CONT 08/05/19 22:00 08/06/19 21:59 DC 08/05/19 22:59 58.333 MLS/HR Sodium Chloride 110 meq/Potassium Chloride 30 meq/ Potassium Acetate 30 meq/Magnesium Sulfate 15 meq/ Multivitamins 10 ml/Chromium/ Copper/Manganese/ Seleni/Zn 1 ml/ Insulin Human Regular 15 unit/ Total Parenteral Nutrition/Amino Acids/Dextrose/ Fat Emulsion Intravenous 1,680 ml @ 70 mls/hr TPN CONT 11/05/19 22:00 11/06/19 21:59 DC 11/05/19 22:01 70 MLS/HR Sodium Chloride 110 meq/Sodium Phosphate 10 mmol/ Potassium Chloride 30 meq/ Potassium Acetate 30 meq/Magnesium Sulfate 15 meq/ Multivitamins 10 ml/Chromium/ Copper/Manganese/ Seleni/Zn 1 ml/ Insulin Human Regular 15 unit/ Total Parenteral Nutrition/Amino Acids/Dextrose/ Fat Emulsion Intravenous 1,680 ml @ 70 mls/hr TPN CONT 11/06/19 22:00 11/07/19 21:59 DC 11/06/19 22:03 70 MLS/HR Sodium Chloride 120 meq/Sodium Phosphate 10 mmol/ Potassium Chloride 30 meq/ Potassium Acetate 30 meq/Magnesium Sulfate 15 meq/ Multivitamins 10 ml/Chromium/ Copper/Manganese/ Seleni/Zn 1 ml/ Insulin Human Regular 15 unit/ Total Parenteral Nutrition/Amino Acids/Dextrose/ Fat Emulsion Intravenous 1,680 ml @ 70 mls/hr TPN CONT 11/13/19 22:00 11/14/19 21:59 Cancel Succinylcholine Chloride (Anectine) 120 mg 1X ONCE 07/11/19 08:30 07/11/19 08:31 DC 07/11/19 08:34 120 MG Vancomycin HCl (Vanco Per Pharmacy) 1 each PRN DAILY PRN 10/30/19 09:15 11/02/19 07:41 DC 11/01/19 02:46 1 EACH Vancomycin HCl (Vancomycin Random Level) 1 each 1X ONCE 11/01/19 01:00 11/01/19 01:01 DC 11/01/19 01:00 1 EACH Vancomycin HCl (Vancomycin Trough Level) 1 each 1X ONCE 11/02/19 09:30 11/02/19 09:31 Cancel Vancomycin HCl 1.5 gm/Sodium Chloride 500 ml @ 250 mls/hr Q12H 11/01/19 10:00 11/02/19 07:41 DC 11/01/19 22:07 250 MLS/HR Vancomycin HCl 2 gm/Sodium Chloride 500 ml @ 250 mls/hr 1X ONCE 10/30/19 10:00 10/30/19 11:59 DC 10/30/19 10:34 250 MLS/HR Vasopressin (Vasostrict) 20 unit STK-MED ONCE 10/18/19 12:23 10/18/19 12:23 DC Vasopressin 20 unit/Dextrose 101 ml @ 12 mls/hr CONT PRN 10/18/19 15:30 11/21/19 09:45 DC 10/25/19 04:17 12 MLS/HR Vecuronium [place] (Norcuron Bolus) 6 mg PRN Q6HRS PRN 08/25/19 19:15 08/25/19 19:35 DC Vitamin A/Vitamin D (Vitamin A & D Ointment) 1 ramu PRN Q1HR PRN 11/22/19 09:15 11/23/19 23:33 1 RAMU Zoledronic Acid 100 ml @ 400 mls/hr 1X ONCE 11/25/19 12:00 11/25/19 12:14 DC 11/25/19 13:04 400 MLS/HR Lab Laboratory Tests Test 11/24/19 18:30 11/25/19 00:27 11/25/19 05:25 11/25/19 05:27 Glucose (Fingerstick) 117 mg/dL (70-99) 128 mg/dL (70-99) 132 mg/dL (70-99) Sodium Level 142 mmol/L (136-145) Potassium Level 3.7 mmol/L (3.5-5.1) Chloride Level 107 mmol/L (98-107) Carbon Dioxide Level 29 mmol/L (21-32) Anion Gap 6 (6-14) Blood Urea Nitrogen 10 mg/dL (7-20) Creatinine 0.7 mg/dL (0.6-1.0) Estimated GFR (Cockcroft-Gault) 88.9 Glucose Level 137 mg/dL (70-99) Calcium Level 10.9 mg/dL (8.5-10.1) Phosphorus Level 3.4 mg/dL (2.6-4.7) Albumin 1.8 g/dL (3.4-5.0) Test 11/25/19 12:04 Glucose (Fingerstick) 150 mg/dL (70-99) Results All relevant outside records, renal labs, imaging studies, telemetry/EKG's were reviewed. Justicifation of Admission Dx: Justifications for Admission: Justification of Admission Dx: Yes VEERNA KENT MD Nov 25, 2019 13:57
[2019-11-25] MEDS: ONDANSETRON PF 4 MG/2 ML VIAL. IV PRN (21:50)
[2019-11-26] MEDS: IPRATRPIUM/ALBUTEROL 0.5/2.5MG 3 ML NEBU. NEB SCH ×5 (02:09→20:25)
[2019-11-26] MEDS: ALPRAZolam 0.5 MG TABLET PO PRN ×3 (03:31→20:51)
[2019-11-26 03:35] VITALS: BP 141/89
[2019-11-26 04:14] LABS: BASO % 0 % (0-3); EOS # 0.2 x10^3/uL (0.0-0.7); EOS % 2 % (0-3); HEMATOCRIT 27.3 % (36.0-47.0); HEMOGLOBIN 8.8 g/dL (12.0-15.5); LYMPH # 1.5 x10^3/uL (1.0-4.8); LYMPH % 15 % (24-48); MEAN CORPUSCULAR HEMOGLOBIN 28 pg (25-35); MEAN CORPUSCULAR HGB CONC 32 g/dL (31-37); MEAN CORPUSCULAR VOLUME 86 fL (79-100); MONO # 0.8 x10^3/uL (0.0-1.1); MONO % 8 % (0-9); NEUT # 7.6 x10^3/uL (1.8-7.7); NEUT % 76 % (31-73); PLATELET COUNT 690 x10^3/uL (140-400); RED BLOOD COUNT 3.16 x10^6/uL (3.50-5.40); RED CELL DISTRIBUTION WIDTH 17.9 % (11.5-14.5)
[2019-11-26 04:26] LABS: CALCIUM 10.3 mg/dL (8.5-10.1); CREATININE 0.5 mg/dL (0.6-1.0); GFR 131.1; POTASSIUM 3.7 mmol/L (3.5-5.1)
[2019-11-26] MEDS: VITS A & D/LANOLIN TOPICAL OINTMENT 42GM TUBE. TP PRN (05:26)
[2019-11-26] MEDS: INSULIN LISPRO 300 UNITS/3 ML VIAL. SQ SCH ×3 (05:36→18:00)
[2019-11-26 07:00] VITALS: BP 133/81
[2019-11-26] MEDS: ACETYLCYSTEINE 20% for RESP TX 600 MG/3 ML. NEB SCH ×2 (07:51→20:26)
[2019-11-26] MEDS: PANTOPRAZOLE IV PUSH 40 MG VIAL. IVP SCH (08:42)
[2019-11-26] MEDS: MULTIVITAMINS,THERAPEUTIC 5 ML ORAL LIQUID. PEG SCH (08:42)
[2019-11-26] MEDS: ENOXAPARIN 40 MG/0.4 ML SYRINGE. SQ SCH (08:43)
[2019-11-26 10:34] VITALS: BP 134/91
[2019-11-26] MEDS: METOPROLOL TARTRATE 5 MG/5 ML VIAL. IVP PRN (12:02)
[2019-11-26] MEDS: ONDANSETRON PF 4 MG/2 ML VIAL. IV PRN (12:20)
--- NOTE | 2019-11-26 12:39 | PDOC ---
[employer] PROGRESS NOTE Date of Service DOS: DATE: 11/26/19 TIME: 12:34 Chief Complaint Chief Complaint A/P: S/P Exp. 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 parapsilosis & PSAE (I-merrem/ceftazidime/AZT/cefepime)) Leucocytosis -stable [id number] last night Acute gallstone pancreatitis with persistent necrosis Acute hypoxic Respiratory failure required mechanical ventilation Tracheostomy Thursday. bilateral pleural effusions/pulm edema s/p Throacentesis on 10/03/2019 Severe Acute gallstone pancreatitis (not a surgical candidate at this time) with necrosis Acute kidney failure now requiring dialysis Gallstones (Calculus of gallbladder with acute cholecystitis without obstruction) HTN Intractable pain Intractable nausea Covid 19 negative. Acute on chronic anemia EEG: No seizure activity Fever - intermittent ? Ileus with vomiting Abd distention - U/S and CT reviewed s/p 0.4 L of opaque, debris-containing ascites was removed 08/23 Acute pancreatitis with persistent necrosis Gallstone pancreatitis with necrosis. -CT A/P 09/23 showed multiple pseudocysts, slight larger on the right. s/p drains x , 09/24. + PSAE (MDRO-R Cefepime, Zosyn ALEXANDRA < 64) and yeast, -s/p drain 08/14. C. parapsilosis. s/p drain 08/23 + yeast & high amylase; s/p additional drain on 08/25. Drains removed. Ascites s/p paracentesis 08/02 & 08/23. C. parapsilosis JUANA. off HD. A large fluid collection in the pancreatic bed has slightly decreased in size, described below, the pancreas itself is difficult to visualize, which could be due to necrosis or obscuration of pancreatic parenchyma from the surrounding fluid collection.10/02 - 08/14 status post KAYLIN drain placement + C paropsilosis. s/p additional drains 08/25 Anemia - S/p PRBCs. Cholelithiasis with thickening of the gallbladder wall. Leucocytosis improving JUANA, hyperkalemia, Metabolic acidosis off dialysis hypocalcemia Prediabetes HTN s/p trach Hyperglycemia severe protein-caloric malnutrition Moderate to large left pleural effusion with atelectasis and collapse of most of the left lower lobe, stable Extensive retroperitoneal fluid collections persist. Percutaneous drains remain within the collections in both paracolic gutters. These communicate with additional pelvic and peripancreatic collections. History of Present Illness History of Present Illness Seen in hallway working with PT. Afebrile, weak, having more secretions not wearing a speaking valve today. WBC 10, Hb 8.8, NA 144, and K3.7, BUN 12, CR 0.5, calcium down to 10.3. After zoledronic acid 11/24: Had a rash after calcitonin injection. Discussed with nephrology with her calcium moving from 11.3-10.9 will give IV bisphosphonate today, zoledronic acid. 11/23: Hb stable. Afebrile. Weak. Calcium increased. Shortness of breath is impr oving. Plan for calcitonin today, lasix, and saline 11/22: Hemoglobin abnormally low on repeat has been stable 7.2. Calcium up to 10.9. She is able to work with PT, she is asking to eat. Social work is been having difficulties with both of her daughters completing the financial aspect of disability paperwork which is been prolonging her stay over the past 5 months. Plan to check PTH and to treat hypercalcemia with 1 L normal saline 40 mg of IV Lasix and repeat labs in a.m. 11/21: Not wishing to wear her speaking valve. J tube having some difficulties. Afebrile. Jamaal bedside to aid her. transferred from ICU today 11/20: No overnight events. Calcium 10.7 on AM labs. She is still a bit slow to to respond, but follows commands well. Does not want speaking valve with me. Pain is better controlled in her abdomen. Wound care to see today. Will check liver function and phos levels given her calcium elevation. 11/19: Patient seen and examined bedside. Positive fluid balance in the past 24 hours. Patient's chart, labs, images were reviewed and discussed with RN 11/18: No acute events overnight. Seen and examined at bedside. Patient had a fever 100.2. Negative fluid balance of 150 cc. Patient's chart, labs, images were reviewed and discussed with RN 11/17: Patient seen and examined at bedside. No acute events overnight. Positive fluid balance 633. Patient's chart, labs, images were reviewed and discussed with RN 11/16: Patient seen and examined bedside. No acute events overnight. Patient's chart, labs, images were reviewed and discussed with RN 11/14: Patient seen and examined bedside. Patient appears to be in no obvious pain. All drains have been adequately draining. Patient continues to be on TPN. Chart labs and imaging was reviewed. Negative fluid balance of 270 cc 11/13:Patient seen and examined in the ICU. Patient still requires extensive care. 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 Chart, labs, imaging was reviewed. UOP with + 500cc balance. 11/11: Patient seen in and examined in the ICU. She is still extremely critically ill. Appears weak, frail, and pale. Better color today with improved eye contact and expression. Discussed with RN. Chart reviewed 11/07: Patient seen and examined in the ICU, She is still extremely critically ill, Appears extremely weak frail and pale, Discussed with RN, Chart reviewed Vitals/I&O Vitals/I&O: Vital Signs Date Time Temp Pulse Resp B/P (MAP) Pulse Ox O2 Delivery O2 Flow Rate FiO2 11/26/19 12:02 152 144/89 11/26/19 10:34 97.9 18 97 Room Air 97.9 I & O 11/25/19 11/25/19 11/26/19 15:00 23:00 07:00 Intake Total 100 ml 1099 ml 1152 ml Output Total 750 ml 875 ml 1100 ml Balance -650 ml 224 ml 52 ml Physical Exam Physical Exam: GENERAL: pt in bed, appears weak -comfortable -alert HEENT: Pupils equal, oral cavity dry. OC/Op - Dry NECK: Tracheostomy - no JVD LUNGS: Diminished aeration bases, HEART: S1, S2, ABDOMEN: Less Distended mild- bowel sounds hypoactive, soft, goyal x 2, KAYLIN drains, G-J tube. Some drainage around R quad tube again and mild insertion site irritation : Lind in place EXTREMITIES: Trace generalized edema, no cyanosis. Yeast in groin area SKIN: warm touch. No signs of rash. LUE- Previous PICC site without signs of complications. PIV s clean NEURO: - Alert and responsive PICC RUE - clean EC fistula General: Cooperative, No acute distress Heart: Other Lungs: Clear Abdomen: Soft Extremities: Other (Diffuse edema) Skin: No rashes, No significant lesion Labs Labs: Laboratory Tests Test 11/25/19 17:45 11/25/19 23:07 11/26/19 04:00 11/26/19 07:29 Glucose (Fingerstick) 136 mg/dL (70-99) 126 mg/dL (70-99) 142 mg/dL (70-99) White Blood Count 10.0 x10^3/uL (4.0-11.0) Red Blood Count 3.16 x10^6/uL (3.50-5.40) Hemoglobin 8.8 g/dL (12.0-15.5) Hematocrit 27.3 % (36.0-47.0) Mean Corpuscular Volume 86 fL (79-100) Mean Corpuscular Hemoglobin 28 pg (25-35) Mean Corpuscular Hemoglobin Concent 32 g/dL (31-37) Red Cell Distribution Width 17.9 % (11.5-14.5) Platelet Count 690 x10^3/uL (140-400) Neutrophils (%) (Auto) 76 % (31-73) Lymphocytes (%) (Auto) 15 % (24-48) Monocytes (%) (Auto) 8 % (0-9) Eosinophils (%) (Auto) 2 % (0-3) Basophils (%) (Auto) 0 % (0-3) Neutrophils # (Auto) 7.6 x10^3/uL (1.8-7.7) Lymphocytes # (Auto) 1.5 x10^3/uL (1.0-4.8) Monocytes # (Auto) 0.8 x10^3/uL (0.0-1.1) Eosinophils # (Auto) 0.2 x10^3/uL (0.0-0.7) Basophils # (Auto) 0.0 x10^3/uL (0.0-0.2) Sodium Level 144 mmol/L (136-145) Potassium Level 3.7 mmol/L (3.5-5.1) Chloride Level 108 mmol/L (98-107) Carbon Dioxide Level 29 mmol/L (21-32) Anion Gap 7 (6-14) Blood Urea Nitrogen 12 mg/dL (7-20) Creatinine 0.5 mg/dL (0.6-1.0) Estimated GFR (Cockcroft-Gault) 131.1 Glucose Level 130 mg/dL (70-99) Calcium Level 10.3 mg/dL (8.5-10.1) Test 11/26/19 12:23 Glucose (Fingerstick) 129 mg/dL (70-99) Assessment and Plan Assessmemt and Plan Problems Medical Problems: (1) Acute pancreatitis Status: Acute (2) Cholelithiasis Status: Acute Comment Review of Relevant I have reviewed the following items kolby (where applicable) has been applied. Justicifation of Admission Dx: Justifications for Admission: Justification of Admission Dx: Yes DAVIN LANDEROS MD Nov 26, 2019 12:39
[2019-11-26 14:37] VITALS: BP 126/79
[2019-11-26] MEDS: HYDROcodone/APAP 5/325MG 1 TAB TABLET PO PRN ×2 (14:37→20:54)
[2019-11-26 19:55] VITALS: BP 121/81
[2019-11-26] MEDS: CYCLOBENZAPRINE 10 MG TABLET. PO PRN (20:50)
[2019-11-26 23:53] VITALS: BP 120/72
[2019-11-27] MEDS: IPRATRPIUM/ALBUTEROL 0.5/2.5MG 3 ML NEBU. NEB SCH ×6 (00:25→19:38)
[2019-11-27 02:20] VITALS: BP 147/99
[2019-11-27] MEDS: METOPROLOL TARTRATE 5 MG/5 ML VIAL. IVP PRN ×2 (05:29→14:48)
[2019-11-27] MEDS: fentaNYL PF VIAL 100 MCG/2 ML VIAL IVP PRN (06:00)
[2019-11-27] MEDS: INSULIN LISPRO 300 UNITS/3 ML VIAL. SQ SCH ×5 (06:00→23:24)
[2019-11-27 06:09] LABS: CALCIUM 10.1 mg/dL (8.5-10.1); CREATININE 0.8 mg/dL (0.6-1.0); GFR 76.2; POTASSIUM 4.7 mmol/L (3.5-5.1)
[2019-11-27 07:00] VITALS: BP 136/93
[2019-11-27] MEDS: ACETYLCYSTEINE 20% for RESP TX 600 MG/3 ML. NEB SCH ×2 (07:39→19:38)
--- NOTE | 2019-11-27 08:32 | PDOC ---
[employer] PROGRESS NOTE Date of Service DOS: DATE: 11/27/19 TIME: 08:31 Chief Complaint Chief Complaint A/P: S/P Exp. 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 parapsilosis & PSAE (I-merrem/ceftazidime/AZT/cefepime)) Leucocytosis -stable [id number] last night Acute gallstone pancreatitis with persistent necrosis Acute hypoxic Respiratory failure required mechanical ventilation Tracheostomy Thursday. bilateral pleural effusions/pulm edema s/p Throacentesis on 10/03/2019 Severe Acute gallstone pancreatitis (not a surgical candidate at this time) with necrosis Acute kidney failure now requiring dialysis Gallstones (Calculus of gallbladder with acute cholecystitis without obstruction) HTN Intractable pain Intractable nausea Covid 19 negative. Acute on chronic anemia EEG: No seizure activity Fever - intermittent ? Ileus with vomiting Abd distention - U/S and CT reviewed s/p 0.4 L of opaque, debris-containing ascites was removed 08/23 Acute pancreatitis with persistent necrosis Gallstone pancreatitis with necrosis. -CT A/P 09/23 showed multiple pseudocysts, slight larger on the right. s/p drains x , 09/24. + PSAE (MDRO-R Cefepime, Zosyn ALEXANDRA < 64) and yeast, -s/p drain 08/14. C. parapsilosis. s/p drain 08/23 + yeast & high amylase; s/p additional drain on 08/25. Drains removed. Ascites s/p paracentesis 08/02 & 08/23. C. parapsilosis JUANA. off HD. A large fluid collection in the pancreatic bed has slightly decreased in size, described below, the pancreas itself is difficult to visualize, which could be due to necrosis or obscuration of pancreatic parenchyma from the surrounding fluid collection.10/02 - 08/14 status post KAYLIN drain placement + C paropsilosis. s/p additional drains 08/25 Anemia - S/p PRBCs. Cholelithiasis with thickening of the gallbladder wall. Leucocytosis improving JUANA, hyperkalemia, Metabolic acidosis off dialysis hypocalcemia Prediabetes HTN s/p trach Hyperglycemia severe protein-caloric malnutrition Moderate to large left pleural effusion with atelectasis and collapse of most of the left lower lobe, stable Extensive retroperitoneal fluid collections persist. Percutaneous drains remain within the collections in both paracolic gutters. These communicate with additional pelvic and peripancreatic collections. History of Present Illness History of Present Illness Afebrile. Calcium down to 10.1. Little more tachycardic today with some more secretions. No O2 requirements. Does not wish to wear her speaking valve. Will check CXR. 11/25: Afebrile, weak, having more secretions not wearing a speaking valve today. WBC 10, Hb 8.8, NA 144, and K3.7, BUN 12, CR 0.5, calcium down to 10.3. After zoledronic acid 11/24: Had a rash after calcitonin injection. Discussed with nephrology with her calcium moving from 11.3-10.9 will give IV bisphosphonate today, zoledronic acid. 11/23: Hb stable. Afebrile. Weak. Calcium increased. Shortness of breath is improving. Plan for calcitonin today, lasix, and saline 11/22: Hemoglobin abnormally low on repeat has been stable 7.2. Calcium up to 10.9. She is able to work with PT, she is asking to eat. Social work is been having difficulties with both of her daughters completing the financial aspect of disability paperwork which is been prolonging her stay over the past 5 months. Plan to check PTH and to treat hypercalcemia with 1 L normal saline 40 mg of IV Lasix and repeat labs in a.m. 11/21: Not wishing to wear her speaking valve. J tube having some difficulties. Afebrile. Jamaal bedside to aid her. transferred from ICU today 11/20: No overnight events. Calcium 10.7 on AM labs. She is still a bit slow to to respond, but follows commands well. Does not want speaking valve with me. Pain is better controlled in her abdomen. Wound care to see today. Will check liver function and phos levels given her calcium elevation. 11/19: Patient seen and examined bedside. Positive fluid balance in the past 24 hours. Patient's chart, labs, images were reviewed and discussed with RN 11/18: No acute events overnight. Seen and examined at bedside. Patient had a fever 100.2. Negative fluid balance of 150 cc. Patient's chart, labs, images were reviewed and discussed with RN 11/17: Patient seen and examined at bedside. No acute events overnight. Positive fluid balance 633. Patient's chart, labs, images were reviewed and discussed with RN 11/16: Patient seen and examined bedside. No acute events overnight. Patient's chart, labs, images were reviewed and discussed with RN 11/14: Patient seen and examined bedside. Patient appears to be in no obvious pain. All drains have been adequately draining. Patient continues to be on TPN. Chart labs and imaging was reviewed. Negative fluid balance of 270 cc 11/13:Patient seen and examined in the ICU. Patient still requires extensive care. 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 Chart, labs, imaging was reviewed. UOP with + 500cc balance. 11/11: Patient seen in and examined in the ICU. She is still extremely critically ill. Appears weak, frail, and pale. Better color today with improved eye contact and expression. Discussed with RN. Chart reviewed 11/07: Patient seen and examined in the ICU, She is still extremely critically ill, Appears extremely weak frail and pale, Discussed with RN, Chart reviewed Vitals/I&O Vitals/I&O: Vital Signs Date Time Temp Pulse Resp B/P (MAP) Pulse Ox O2 Delivery O2 Flow Rate FiO2 11/27/19 07:40 96 Room Air 11/27/19 07:00 99.2 136 18 136/93 (107) 99.2 I & O 11/26/19 11/26/19 11/27/19 15:00 23:00 07:00 Intake Total 526 ml 0 ml Output Total 75 ml 850 ml 150 ml Balance 451 ml -850 ml -150 ml Physical Exam Physical Exam: GENERAL: pt in bed, appears weak -comfortable -alert HEENT: Pupils equal, oral cavity dry. OC/Op - Dry NECK: Tracheostomy - no JVD LUNGS: Diminished aeration bases, HEART: S1, S2, ABDOMEN: Less Distended mild- bowel sounds hypoactive, soft, goyal x 2, KAYLIN drains, G-J tube. Some drainage around R quad tube again and mild insertion site irritation : Lind in place EXTREMITIES: Trace generalized edema, no cyanosis. Yeast in groin area SKIN: warm touch. No signs of rash. LUE- Previous PICC site without signs of complications. PIV s clean NEURO: - Alert and responsive PICC RUE - clean EC fistula General: Cooperative, No acute distress Heart: Other Lungs: Clear Abdomen: Soft Extremities: Other (Diffuse edema) Skin: No rashes, No significant lesion Labs Labs: Laboratory Tests Test 11/26/19 12:23 11/26/19 18:29 11/27/19 02:33 11/27/19 05:20 Glucose (Fingerstick) 129 mg/dL (70-99) 143 mg/dL (70-99) 119 mg/dL (70-99) Sodium Level 143 mmol/L (136-145) Potassium Level 4.7 mmol/L (3.5-5.1) Chloride Level 109 mmol/L (98-107) Carbon Dioxide Level 28 mmol/L (21-32) Anion Gap 6 (6-14) Blood Urea Nitrogen 21 mg/dL (7-20) Creatinine 0.8 mg/dL (0.6-1.0) Estimated GFR (Cockcroft-Gault) 76.2 Glucose Level 160 mg/dL (70-99) Calcium Level 10.1 mg/dL (8.5-10.1) Magnesium Level 1.9 mg/dL (1.8-2.4) Test 11/27/19 07:44 Glucose (Fingerstick) 133 mg/dL (70-99) Assessment and Plan Assessmemt and Plan Problems Medical Problems: (1) Acute pancreatitis Status: Acute (2) Cholelithiasis Status: Acute Comment Review of Relevant I have reviewed the following items kolby (where applicable) has been applied. Justicifation of Admission Dx: Justifications for Admission: Justification of Admission Dx: Yes DAVIN LANDEROS MD Nov 27, 2019 08:32
[2019-11-27] MEDS: fentaNYL 12MCG/HR PATCH 1 PATCH PATCH.TD72 TD SCH (09:09)
[2019-11-27] MEDS: MULTIVITAMINS,THERAPEUTIC 5 ML ORAL LIQUID. PEG SCH (09:10)
[2019-11-27] MEDS: PANTOPRAZOLE IV PUSH 40 MG VIAL. IVP SCH (09:10)
[2019-11-27] MEDS: ENOXAPARIN 40 MG/0.4 ML SYRINGE. SQ SCH (09:12)
[2019-11-27] MEDS ORDERED: METOPROLOL TARTRATE 5 MG/5 ML VIAL. IVP ONE (10:45)
[2019-11-27 10:55] VITALS: BP 139/91
[2019-11-27] MEDS: ONDANSETRON PF 4 MG/2 ML VIAL. IV PRN ×3 (12:24→23:15)
[2019-11-27] MEDS: PROCHLORPERAZINE 10 MG/2 ML VIAL. IV PRN (13:28)
--- NOTE | 2019-11-27 14:16 | RAD ---
CHEST AP ONLY History: Reason: Increased secretions, adventitious breath sounds, / Spl. Instructions: / History: Comparison: November 07, 2019 Findings: Low lung volumes. Decreased small bilateral layering pleural effusions. Decreased interstitial thickening. Interval placement right PICC with tip projecting over the cavoatrial junction. Unchanged tracheostomy tube. Interval removal of left PICC. Impression: 1. Decreased small bilateral layering pleural effusions interstitial thickening. 2. Low lung volumes. Electronically signed by: Sukhdev Sadler DO (11/27/2019 2:13 PM) ANNITA
[2019-11-27 15:00] VITALS: BP 142/91
[2019-11-27 19:15] VITALS: BP 129/84
--- NOTE | 2019-11-27 20:00 | NUR ---
Pt heart rate has been 150s sinus tach since the beginning of my shift. It appears on ecg monitor that she has been in the 150s since 10am. Pt is tachypneic with resp rate in 40s. She denies pain at this time, slight fever of 99.7f aux. Pt given tylenol. notified of this patient with necrotizing pancreatitis with rapid heart rate. Physician states as long as it is a sinus rhythm, there is no need to try to correct from a cardiac standpoint. We did discuss that the primary physician was aware during day shift and ordered a set of blood cultures. A sepsis screen was also positive and it was called to [facility] [employer] SALES REPRESENTATIVE. SECURITY SYSTEMS SALES REPRESENTATIVE was very familiar with this patient that has been hospitalized since June. SECURITY SYSTEMS SALES REPRESENTATIVE states the patient does has a history with tachycardia related to severe anxiety. We discussed a lactic could be drawn (it was negative). But to continue to monitor the patient and do supportive care unless condition changes.
[2019-11-27] MEDS: ALPRAZolam 0.5 MG TABLET PO PRN (20:07)
[2019-11-27] MEDS: ACETAMINOPHEN 650 MG SUPP.RECT. PR PRN (20:07)
[2019-11-27 22:28] VITALS: BP 109/67
[2019-11-28] MEDS: PROCHLORPERAZINE 10 MG/2 ML VIAL. IV PRN (00:42)
[2019-11-28] MEDS: HYDROcodone/APAP 5/325MG 1 TAB TABLET PO PRN ×2 (01:47→03:46)
[2019-11-28] MEDS: METOPROLOL TARTRATE 5 MG/5 ML VIAL. IVP PRN ×2 (01:47→12:36)
[2019-11-28] MEDS: CYCLOBENZAPRINE 10 MG TABLET. PO PRN (01:47)
[2019-11-28 02:32] VITALS: BP 115/63
[2019-11-28] MEDS: ALPRAZolam 0.5 MG TABLET PO PRN (03:46)
[2019-11-28] MEDS: IPRATRPIUM/ALBUTEROL 0.5/2.5MG 3 ML NEBU. NEB SCH ×6 (04:00→19:25)
[2019-11-28 04:53] LABS: BASO # 0.1 x10^3/uL (0.0-0.2); BASO % 0 % (0-3); EOS % 0 % (0-3); HEMATOCRIT 29.2 % (36.0-47.0); HEMOGLOBIN 9.3 g/dL (12.0-15.5); LYMPH # 2.9 x10^3/uL (1.0-4.8); LYMPH % 12 % (24-48); MEAN CORPUSCULAR HEMOGLOBIN 28 pg (25-35); MEAN CORPUSCULAR HGB CONC 32 g/dL (31-37); MEAN CORPUSCULAR VOLUME 89 fL (79-100); MONO # 1.3 x10^3/uL (0.0-1.1); MONO % 6 % (0-9); NEUT # 18.9 x10^3/uL (1.8-7.7); NEUT % 82 % (31-73); PLATELET COUNT 620 x10^3/uL (140-400); RED BLOOD COUNT 3.29 x10^6/uL (3.50-5.40); RED CELL DISTRIBUTION WIDTH 18.9 % (11.5-14.5); WHITE BLOOD COUNT 23.1 x10^3/uL (4.0-11.0)
[2019-11-28 05:04] LABS: CALCIUM 9.1 mg/dL (8.5-10.1); CREATININE 1.2 mg/dL (0.6-1.0); GFR 47.7; POTASSIUM 5.6 mmol/L (3.5-5.1)
[2019-11-28] MEDS: INSULIN LISPRO 300 UNITS/3 ML VIAL. SQ SCH ×3 (05:44→19:01)
[2019-11-28 07:00] VITALS: BP 107/64
[2019-11-28] MEDS: PANTOPRAZOLE IV PUSH 40 MG VIAL. IVP SCH (08:22)
[2019-11-28] MEDS: ENOXAPARIN 40 MG/0.4 ML SYRINGE. SQ SCH (08:23)
[2019-11-28] MEDS: MULTIVITAMINS,THERAPEUTIC 5 ML ORAL LIQUID. PEG SCH (08:23)
[2019-11-28] MEDS: ACETYLCYSTEINE 20% for RESP TX 600 MG/3 ML. NEB SCH ×2 (08:42→19:25)
--- NOTE | 2019-11-28 08:57 | PDOC ---
Infectious Disease Note Subjective: Subjective awake, says feeling ok, trach t max 99.7 Vital Signs: Vital Signs Vital Signs Date Time Temp Pulse Resp B/P (MAP) Pulse Ox O2 Delivery O2 Flow Rate FiO2 11/28/19 08:42 95 Room Air 11/28/19 07:00 99.2 136 20 107/64 (78) 99.2 11/28/19 05:00 2.0 Physical Exam: PHYSICAL EXAM GENERAL: pt in bed, appears weak -comfortable -alert HEENT: Pupils equal, oral cavity dry. OC/Op - Dry NECK: Tracheostomy - no JVD LUNGS: Diminished aeration bases, HEART: S1, S2, ABDOMEN: Less Distended mild- bowel sounds hypoactive, soft, GJ drain present, drainage bag in place with depedent drainage : Lind in place EXTREMITIES: Trace generalized edema, no cyanosis. Yeast in groin area SKIN: warm touch. No signs of rash. NEURO: - Alert and responsive RUE PICC site without signs of complications. PIV s clean EC fistula Medications: Inpatient Meds: Current Medications Medications (Trade) Dose Ordered Sig/Yvon Start Time Stop Time Status Last Admin Dose Admin Acetaminophen (Tylenol Supp) 650 mg PRN Q6HRS PRN 07/12/19 10:30 11/27/19 20:07 650 MG Acetaminophen (Tylenol) 650 mg PRN Q6HRS PRN 07/09/19 03:36 08/31/19 10:25 DC 08/04/19 19:56 650 MG Acetaminophen/ Hydrocodone Bitart (Lortab 5/325) 1 tab PRN Q4HRS PRN 11/10/19 16:00 11/28/19 03:46 1 TAB Acetylcysteine (Mucomyst 20% Resp Treatment) 600 mg RTBID 10/15/19 12:00 11/28/19 08:42 600 MG Albumin Human 500 ml @ 125 mls/hr PRN Q1HR PRN 10/18/19 15:45 11/21/19 09:52 DC Albuterol Sulfate (Ventolin Neb Soln) 2.5 mg 1X ONCE 07/05/19 22:30 07/05/19 22:31 DC 07/06/19 00:56 2.5 MG Albuterol/ Ipratropium (Duoneb) 3 ml Q4HRS 10/01/19 08:00 11/28/19 08:42 3 ML Alprazolam (Xanax) 0.5 mg PRN QID PRN 11/10/19 16:00 11/28/19 03:46 0.5 MG Alteplase, Recombinant (Cathflo For Central Catheter Clearance) 1 mg 1X ONCE 11/23/19 07:00 11/23/19 07:01 DC 11/23/19 09:30 1 MG Alteplase, Recombinant 4 mg/ Sodium Chloride 20 ml @ 20 mls/hr 1X ONCE 10/05/19 10:00 10/05/19 10:59 DC 10/05/19 10:09 20 MLS/HR Alteplase, Recombinant 5 mg/ Sodium Chloride 30 ml @ 30 mls/hr 1X PRN 11/23/19 06:45 UNV Amino Acids/ Glycerin/ Electrolytes 1,000 ml @ 80 mls/hr [id number] 11/13/19 10:15 11/20/19 07:07 DC 11/19/19 18:10 80 MLS/HR Artificial Tears (Artificial Tears) 1 drop PRN Q15MIN PRN 08/17/19 05:30 10/11/19 21:17 1 DROP Atenolol (Tenormin) 100 mg DAILY 07/05/19 09:00 07/04/19 20:08 DC Atropine Sulfate (ATROPINE 0.5mg SYRINGE) 0.5 mg PRN Q5MIN PRN 07/21/19 08:15 11/21/19 09:45 DC Barium Sulfate (Varibar Thin Liquid Apple) 148 gm 1X ONCE 09/13/19 11:45 09/13/19 11:49 DC Benzocaine (Hurricaine One) 1 spray 1X ONCE 07/08/19 14:30 07/08/19 14:31 DC 07/08/19 16:38 1 SPRAY Bisacodyl (Dulcolax Supp) 10 mg STK-MED ONCE 08/15/19 10:59 08/15/19 10:59 DC Bumetanide (Bumex) 2 mg DAILY 08/26/19 10:00 09/05/19 17:15 DC 09/05/19 08:07 2 MG Bupivacaine HCl/ Epinephrine Bitart (Sensorcain-Epi 0.5%-1:[id number] Mpf) 30 ml STK-MED ONCE 10/18/19 08:34 10/18/19 08:35 DC Calcitonin [place] (Miacalcin) 400 unit BID 11/24/19 18:00 11/25/19 15:56 DC 11/24/19 18:18 400 UNIT Calcium Carbonate/ Glycine (Tums) 500 mg PRN AFTMEALHC PRN 07/06/19 17:45 08/31/19 10:25 DC Calcium Chloride 1000 mg/Sodium Chloride 110 ml @ 220 mls/hr 1X ONCE 07/05/19 22:30 07/05/19 22:59 DC 07/05/19 22:11 220 MLS/HR Calcium Chloride 3000 mg/Sodium Chloride 1,030 ml @ 50 mls/hr [id number] 07/07/19 08:00 07/09/19 15:23 DC 07/09/19 02:17 50 MLS/HR Calcium Gluconate (Calcium Gluconate) 2,000 mg 1X ONCE 07/07/19 02:15 07/07/19 02:16 DC 07/07/19 02:19 2,000 MG Calcium Gluconate 1000 mg/Sodium Chloride 110 ml @ 220 mls/hr 1X ONCE 07/06/19 03:30 07/06/19 03:59 DC 07/06/19 03:21 220 MLS/HR Calcium Gluconate 2000 mg/Sodium Chloride 120 ml @ 220 mls/hr 1X ONCE 07/06/19 07:30 07/06/19 08:02 DC 07/06/19 09:05 220 MLS/HR Cefepime HCl (Maxipime) 2 gm Q12HR 11/09/19 09:00 11/10/19 07:30 DC 11/09/19 20:53 2 GM Ceftazidime/ Avibactam 2.5 gm/ Sodium Chloride 250 ml @ 125 mls/hr Q8HRS 11/10/19 08:00 11/23/19 08:20 DC 11/23/19 05:38 125 MLS/HR Cellulose (Surgicel Fibrillar 1x2) 1 each STK-MED ONCE 07/25/19 11:00 07/25/19 11:01 DC Cellulose (Surgicel Hemostat 2x14) 1 each STK-MED ONCE 08/15/19 10:58 4/27/20 10:59 DC Cellulose (Surgicel Hemostat 4x8) 1 each STK-MED ONCE 08/15/19 10:58 08/15/19 10:59 DC Chlorhexidine Gluconate (Peridex) 15 ml BID 10/01/19 09:00 10/01/19 07:58 DC Ciprofloxacin/ Dextrose 200 ml @ 200 mls/hr Q12HR 10/30/19 10:00 11/08/19 08:20 DC 11/07/19 21:02 200 MLS/HR Cyclobenzaprine HCl (Flexeril) 10 mg PRN Q6HRS PRN 08/18/19 10:45 11/26/19 20:50 10 MG Daptomycin 410 mg/ Sodium Chloride 50 ml @ 100 mls/hr Q24H 09/25/19 14:00 09/28/19 08:30 DC 09/27/19 13:33 100 MLS/HR Daptomycin 430 mg/ Sodium Chloride 50 ml @ 100 mls/hr Q24H 08/13/19 13:00 08/18/19 20:58 DC 08/18/19 13:00 100 MLS/HR Daptomycin 450 mg/ Sodium Chloride 50 ml @ 100 mls/hr Q24H 09/04/19 09:00 09/08/19 08:30 DC 09/07/19 09:25 100 MLS/HR Daptomycin 485 mg/ Sodium Chloride 50 ml @ 100 mls/hr Q24H 08/22/19 11:00 08/30/19 07:44 DC 08/29/19 13:10 100 MLS/HR Daptomycin 500 mg/ Sodium Chloride 50 ml @ 100 mls/hr Q24H 11/13/19 09:00 11/23/19 08:20 DC 11/22/19 09:20 100 MLS/HR Desflurane (Suprane) 90 ml STK-MED ONCE 10/18/19 10:18 10/18/19 10:19 DC Dexamethasone Sodium Phosphate (Decadron) 4 mg STK-MED ONCE 08/15/19 10:56 08/15/19 10:57 DC Dexmedetomidine HCl 400 mcg/ Sodium Chloride 100 ml @ 0 mls/hr CONT PRN 07/21/19 08:15 09/17/19 18:31 DC 09/17/19 12:57 8 MLS/HR Dextrose (Dextrose 50%-Water Syringe) 12.5 gm PRN Q15MIN PRN 07/04/19 09:30 Digoxin (Lanoxin) 125 mcg 1X ONCE 07/07/19 18:00 07/07/19 18:01 DC 07/07/19 17:10 125 MCG Diphenhydramine HCl (Benadryl) 25 mg 1X ONCE 11/03/19 19:00 11/03/19 19:01 DC 11/03/19 18:56 25 MG Duloxetine HCl (Cymbalta) 30 mg DAILY 08/28/19 14:00 08/31/19 10:25 DC 08/29/19 09:48 30 MG Enoxaparin Sodium (Lovenox 100mg Syringe) 100 mg Q12HR 08/09/19 21:00 UNV Enoxaparin Sodium (Lovenox 40mg Syringe) 40 mg Q24H 10/19/19 08:00 11/27/19 09:12 40 MG Ephedrine Sulfate (ePHEDrine PF IN SALINE SYRINGE) 50 mg STK-MED ONCE 10/18/19 14:45 10/18/19 14:45 DC Etomidate (Amidate) 8 mg 1X ONCE 07/11/19 08:30 07/11/19 08:31 DC 07/11/19 08:33 8 MG Fentanyl (Duragesic 12mcg/ Hr Patch) 1 patch Q3DAYS 10/28/19 09:00 11/27/19 09:09 1 PATCH Fentanyl (Duragesic 50mcg/ Hr Patch) 1 patch Q72H 09/22/19 21:00 10/01/19 12:00 DC 09/22/19 21:22 1 PATCH Fentanyl Citrate (Fentanyl 2ml Vial) 100 mcg STK-MED ONCE 11/22/19 15:03 11/22/19 15:03 DC Fentanyl Citrate (Fentanyl 5ml Vial) 250 mcg 1X ONCE 08/26/19 09:15 08/26/19 09:16 DC 08/26/19 09:30 50 MCG Flumazenil (Romazicon) 0.5 mg STK-MED ONCE 09/25/19 14:48 09/25/19 14:48 DC Fluoxetine HCl (PROzac) 20 mg QHS 09/22/19 21:00 11/27/19 20:07 20 MG Furosemide (Lasix) 40 mg [id number] 11/24/19 09:00 11/24/19 14:01 DC 11/24/19 13:51 40 MG Haloperidol Lactate (Haldol Inj) 3 mg 1X ONCE 08/22/19 14:30 08/22/19 14:31 DC 08/22/19 14:37 3 MG Heparin Sodium (Porcine) (Hep Lock Adult) 500 unit STK-MED ONCE 07/26/19 09:29 07/26/19 09:30 DC Heparin Sodium (Porcine) (Heparin Sodium) 5,000 unit Q12HR 08/15/19 21:00 08/25/19 09:59 DC 08/24/19 20:57 5,000 UNIT Heparin Sodium (Porcine) 1000 unit/Sodium Chloride 1,001 ml @ 1,001 mls/hr 1X ONCE 10/18/19 06:00 10/18/19 06:59 DC Hydromorphone HCl (Dilaudid Standard METAL OFF BEARER) 12 mg STK-MED ONCE 08/19/19 15:50 08/30/19 11:24 DC Hydromorphone HCl (Dilaudid) 1 mg PRN Q4HRS PRN 08/22/19 19:00 09/05/19 17:10 DC 09/05/19 06:25 1 MG Info (CONTRAST GIVEN -- Rx MONITORING) 1 each PRN DAILY PRN 11/08/19 11:45 11/10/19 11:44 DC Info (Icu Electrolyte Protocol) 1 ea CONT PRN PRN 07/17/19 13:15 Info (PHARMACY MONITORING -- do not chart) 1 each PRN DAILY PRN 08/12/19 15:45 09/13/19 14:14 DC Info (Tpn Per Pharmacy) 1 each PRN DAILY PRN 07/06/19 12:30 UNV Insulin Human Lispro (HumaLOG) 0-9 UNITS Q6HRS 07/04/19 09:30 11/27/19 18:06 4 UNITS Insulin Human Regular (HumuLIN R VIAL) 5 unit 1X ONCE 07/05/19 22:30 07/05/19 22:31 DC 07/05/19 22:14 5 UNIT Iohexol (Omnipaque 240 Mg/ml) 10 ml 1X ONCE 11/22/19 15:45 11/22/19 15:46 DC 11/22/19 15:00 10 ML Iohexol (Omnipaque 300 Mg/ml) 50 ml 1X ONCE 11/15/19 11:00 11/15/19 11:01 DC Iohexol (Omnipaque 350 Mg/ml) 90 ml 1X ONCE 07/04/19 03:30 07/04/19 03:31 DC 07/04/19 03:25 90 ML Ketorolac Tromethamine (Toradol 30mg Vial) 30 mg 1X ONCE 07/04/19 03:00 07/04/19 03:01 DC 07/04/19 02:54 30 MG Lidocaine HCl (Buffered Lidocaine 1%) 5 ml 1X ONCE 11/22/19 15:45 11/22/19 15:46 DC 11/22/19 15:00 5 ML Lidocaine HCl (Glydo (Lidocaine) Jelly) 1 ramu 1X ONCE 07/08/19 14:30 07/08/19 14:31 DC 07/08/19 16:38 1 RAMU Lidocaine HCl (Lidocaine 1% 20ml Vial) 20 ml 1X ONCE 09/25/19 15:00 09/25/19 15:01 DC 09/25/19 15:30 20 ML Lidocaine HCl (Lidocaine Pf 2% Vial) 5 ml STK-MED ONCE 10/18/19 07:44 10/18/19 07:44 DC Lidocaine HCl (Xylocaine-Mpf 1% 2ml Vial) 2 ml PRN 1X PRN 08/15/19 07:00 08/16/19 06:59 DC Linezolid/Dextrose 300 ml @ 300 mls/hr Q12HR 09/04/19 09:00 09/07/19 08:11 DC 09/06/19 21:08 300 MLS/HR Lorazepam (Ativan Inj) 0.25 mg PRN Q4HRS PRN 09/21/19 07:30 11/27/19 23:15 0.25 MG Magnesium Sulfate 50 ml @ 25 mls/hr 1X ONCE 10/18/19 16:30 10/18/19 18:29 DC 10/18/19 17:02 25 MLS/HR Meropenem 1 gm/ Sodium Chloride 100 ml @ 200 mls/hr Q12HR 09/25/19 21:00 10/13/19 08:56 DC 10/13/19 08:27 200 MLS/HR Meropenem 500 mg/ Sodium Chloride 50 ml @ 100 mls/hr Q6HRS 10/16/19 18:00 11/08/19 08:23 DC 11/08/19 06:15 100 MLS/HR Methylprednisolone Sodium Succinate (SOLU-Medrol 125MG VIAL) 125 mg 1X ONCE 10/01/19 06:15 10/01/19 06:16 DC 10/01/19 06:26 125 MG Metoclopramide HCl (Reglan Vial) 10 mg PRN Q3HRS PRN 08/27/19 16:45 09/01/19 04:25 10 MG Metoprolol Tartrate (Lopressor Vial) 5 mg 1X ONCE 11/27/19 10:45 11/27/19 10:46 DC 11/27/19 10:54 5 MG Metronidazole 100 ml @ 100 mls/hr Q8HRS 08/02/19 10:00 08/09/19 08:10 DC 08/09/19 06:04 100 MLS/HR Micafungin Sodium 100 mg/Dextrose 100 ml @ 100 mls/hr Q24H 10/18/19 08:30 11/23/19 08:20 DC 11/22/19 09:30 100 MLS/HR Midazolam HCl (Versed) 2 mg 1X ONCE 09/25/19 15:00 09/25/19 15:01 DC 09/25/19 15:28 1 MG Midazolam HCl 100 mg/Sodium Chloride 100 ml @ 1 mls/hr CONT PRN 10/18/19 14:45 11/21/19 09:45 DC 10/21/19 18:48 10 MLS/HR Midazolam HCl 50 mg/Sodium Chloride 50 ml @ 0 mls/hr CONT PRN 07/11/19 08:15 07/16/19 15:59 DC 07/14/19 22:39 7 MLS/HR Morphine Sulfate (Morphine Sulfate) 1 mg PRN Q1HR PRN 10/18/19 14:45 11/21/19 09:45 DC 11/12/19 18:28 1 MG Multi-Ingred Cream/Lotion/Oil/ Oint (Artificial Tears Eye Ointment) 1 ramu PRN Q1HR PRN 07/13/19 17:30 09/21/19 14:39 DC 08/01/19 08:19 1 RAMU Multivitamins/ Minerals Therapeutic (Centrum Multivit-Mineral Liq) 5 ml DAILY 11/23/19 09:00 11/27/19 09:10 5 ML Naloxone HCl (Narcan) 0.4 mg PRN Q2MIN PRN 10/18/19 14:45 11/21/19 09:45 DC Norepinephrine Bitartrate 8 mg/ Dextrose 258 ml @ 13.332 mls/ hr CONT PRN 09/25/19 06:30 11/21/19 09:45 DC 10/20/19 09:09 1.6 MLS/HR Ondansetron HCl (Zofran) 4 mg STK-MED ONCE 10/18/19 13:33 10/18/19 13:33 DC Pantoprazole Sodium (PROTONIX VIAL for IV PUSH) 40 mg DAILYAC 07/04/19 11:30 11/27/19 09:10 40 MG Phenylephrine HCl (Brayden-Synephrine Inj) 10 mg STK-MED ONCE 10/18/19 13:33 10/18/19 13:33 DC Phenylephrine HCl (PHENYLEPHRINE in 0.9% NACL PF) 1 mg STK-MED ONCE 10/18/19 14:44 10/18/19 14:45 DC Piperacillin Sod/ Tazobactam Sod 3.375 gm/Sodium Chloride 50 ml @ 100 mls/hr Q6HRS 09/14/19 12:00 09/22/19 07:26 DC 09/22/19 06:10 100 MLS/HR Piperacillin Sod/ Tazobactam Sod 4.5 gm/Sodium Chloride 100 ml @ 200 mls/hr 1X ONCE 07/04/19 06:00 07/04/19 06:29 DC 07/04/19 05:44 200 MLS/HR Potassium Chloride 110 meq/ Magnesium Sulfate 20 meq/ Multivitamins 10 ml/Chromium/ Copper/Manganese/ Seleni/Zn 1 ml/ Insulin Human Regular 15 unit/ Total Parenteral Nutrition/Amino Acids/Dextrose/ Fat Emulsion Intravenous 1,800 ml @ 75 mls/hr TPN CONT 09/11/19 22:00 09/12/19 21:59 DC 09/11/19 22:48 75 MLS/HR Potassium Chloride 15 meq/ Bicarbonate Dialysis Soln w/ out KCl 5,007.5 ml @ 1,000 mls/ hr Q5H1M 07/17/19 20:00 07/21/19 13:08 DC 07/20/19 18:14 1,000 MLS/HR Potassium Chloride 20 meq/ Bicarbonate Dialysis Soln w/ out KCl 5,010 ml @ 1,000 mls/hr Q5H1M 07/13/19 16:00 07/17/19 19:59 DC 07/17/19 14:54 1,000 MLS/HR Potassium Chloride 40 meq/ Potassium Acetate 60 meq/Magnesium Sulfate 10 meq/ Multivitamins 10 ml/Chromium/ Copper/Manganese/ Seleni/Zn 1 ml/ Insulin Human Regular 20 unit/ Total Parenteral Nutrition/Amino Acids/Dextrose/ Fat Emulsion Intravenous 1,800 ml @ 75 mls/hr TPN CONT 09/22/19 22:00 09/23/19 21:59 DC 09/23/19 00:03 75 MLS/HR Potassium Chloride 70 meq/ Magnesium Sulfate 20 meq/ Multivitamins 10 ml/Chromium/ Copper/Manganese/ Seleni/Zn 1 ml/ Insulin Human Regular 15 unit/ Total Parenteral Nutrition/Amino Acids/Dextrose/ Fat Emulsion Intravenous 1,800 ml @ 75 mls/hr TPN CONT 09/16/19 22:00 09/17/19 21:59 DC 09/16/19 23:13 75 MLS/HR Potassium Chloride 75 meq/ Magnesium Sulfate 15 meq/ Multivitamins 10 ml/Chromium/ Copper/Manganese/ Seleni/Zn 0.5 ml/ Insulin Human Regular 15 unit/ Total Parenteral Nutrition/Amino Acids/Dextrose/ Fat Emulsion Intravenous 1,920 ml @ 80 mls/hr TPN CONT 08/27/19 22:00 08/28/19 21:59 DC 08/27/19 22:41 80 MLS/HR Potassium Chloride 75 meq/ Magnesium Sulfate 15 meq/Calcium Gluconate 8 meq/ Multivitamins 10 ml/Chromium/ Copper/Manganese/ Seleni/Zn 0.5 ml/ Insulin Human Regular 15 unit/ Total Parenteral Nutrition/Amino Acids/Dextrose/ Fat Emulsion Intravenous 1,920 ml @ 80 mls/hr TPN CONT 08/25/19 22:00 08/26/19 21:59 DC 08/25/19 22:28 80 MLS/HR Potassium Chloride 75 meq/ Magnesium Sulfate 15 meq/Calcium Gluconate 8 meq/ Multivitamins 10 ml/Chromium/ Copper/Manganese/ Seleni/Zn 0.5 ml/ Insulin Human Regular 20 unit/ Total Parenteral Nutrition/Amino Acids/Dextrose/ Fat Emulsion Intravenous 1,920 ml @ 80 mls/hr TPN CONT 08/24/19 22:00 08/25/19 21:59 DC 08/24/19 22:00 80 MLS/HR Potassium Chloride 75 meq/ Magnesium Sulfate 15 meq/Calcium Gluconate 8 meq/ Multivitamins 10 ml/Chromium/ Copper/Manganese/ Seleni/Zn 0.5 ml/ Insulin Human Regular 25 unit/ Total Parenteral Nutrition/Amino Acids/Dextrose/ Fat Emulsion Intravenous 1,920 ml @ 80 mls/hr TPN CONT 08/22/19 22:00 08/23/19 21:59 DC 08/22/19 23:08 80 MLS/HR Potassium Chloride 75 meq/ Magnesium Sulfate 20 meq/Calcium Gluconate 10 meq/ Multivitamins 10 ml/Chromium/ Copper/Manganese/ Seleni/Zn 0.5 ml/ Insulin Human Regular 25 unit/ Total Parenteral Nutrition/Amino Acids/Dextrose/ Fat Emulsion Intravenous 1,920 ml @ 80 mls/hr TPN CONT 08/21/19 22:00 08/22/19 21:59 DC 08/21/19 22:04 80 MLS/HR Potassium Chloride 75 meq/ Magnesium Sulfate 20 meq/Calcium Gluconate 10 meq/ Multivitamins 10 ml/Chromium/ Copper/Manganese/ Seleni/Zn 0.5 ml/ Insulin Human Regular 30 unit/ Total Parenteral Nutrition/Amino Acids/Dextrose/ Fat Emulsion Intravenous 1,920 ml @ 80 mls/hr TPN CONT 08/20/19 22:00 08/21/19 22:00 DC 08/20/19 21:51 80 MLS/HR Potassium Chloride 80 meq/ Magnesium Sulfate 20 meq/ Multivitamins 10 ml/Chromium/ Copper/Manganese/ Seleni/Zn 0.5 ml/ Insulin Human Regular 15 unit/ Total Parenteral Nutrition/Amino Acids/Dextrose/ Fat Emulsion Intravenous 1,920 ml @ 80 mls/hr TPN CONT 08/30/19 22:00 08/31/19 21:59 DC 08/30/19 21:40 80 MLS/HR Potassium Chloride 80 meq/ Magnesium Sulfate 20 meq/ Multivitamins 10 ml/Chromium/ Copper/Manganese/ Seleni/Zn 1 ml/ Insulin Human Regular 15 unit/ Total Parenteral Nutrition/Amino Acids/Dextrose/ Fat Emulsion Intravenous 1,800 ml @ 75 mls/hr TPN CONT 09/18/19 22:00 09/19/19 21:59 DC 09/18/19 21:54 75 MLS/HR Potassium Chloride 90 meq/ Magnesium Sulfate 20 meq/ Multivitamins 10 ml/Chromium/ Copper/Manganese/ Seleni/Zn 1 ml/ Insulin Human Regular 15 unit/ Total Parenteral Nutrition/Amino Acids/Dextrose/ Fat Emulsion Intravenous 1,800 ml @ 75 mls/hr TPN CONT 09/07/19 22:00 09/08/19 21:59 DC 09/07/19 22:28 75 MLS/HR Potassium Chloride 90 meq/ Magnesium Sulfate 20 meq/ Multivitamins 10 ml/Chromium/ Copper/Manganese/ Seleni/Zn 1 ml/ Insulin Human Regular 20 unit/ Total Parenteral Nutrition/Amino Acids/Dextrose/ Fat Emulsion Intravenous 1,800 ml @ 75 mls/hr TPN CONT 09/21/19 22:00 09/22/19 21:59 DC 09/21/19 23:13 75 MLS/HR Potassium Chloride/Water 100 ml @ 100 mls/hr Q1H 10/05/19 08:00 10/05/19 09:59 DC 10/05/19 09:12 100 MLS/HR Potassium Phosphate 20 mmol/ Sodium Chloride 106.6667 ml @ 51.667 m... 1X ONCE 07/13/19 13:00 07/13/19 15:03 DC 07/13/19 12:51 51.667 MLS/HR Potassium Acetate 30 meq/Magnesium Sulfate 14 meq/ Multivitamins 10 ml/Chromium/ Copper/Manganese/ Seleni/Zn 1 ml/ Insulin Human Regular 15 unit/ Sodium Chloride 20 meq/Potassium Chloride 30 meq/ Total Parenteral Nutrition/Amino Acids/Dextrose/ Fat Emulsion Intravenous 1,920 ml @ 80 mls/hr TPN CONT 10/11/19 22:00 10/12/19 21:59 DC 10/11/19 21:46 80 MLS/HR Potassium Acetate 30 meq/Magnesium Sulfate 20 meq/ Calcium Gluconate 10 meq/ Multivitamins 10 ml/Chromium/ Copper/Manganese/ Seleni/Zn 0.5 ml/ Insulin Human Regular 30 unit/ Potassium Chloride 30 meq/ Total Parenteral Nutrition/Amino Acids/Dextrose/ Fat Emulsion Intravenous 1,920 ml @ 80 mls/hr TPN CONT 08/19/19 22:00 08/20/19 21:59 DC 08/19/19 22:34 80 MLS/HR Potassium Acetate 40 meq/Magnesium Sulfate 10 meq/ Multivitamins 10 ml/Chromium/ Copper/Manganese/ Seleni/Zn 1 ml/ Insulin Human Regular 20 unit/ Total Parenteral Nutrition/Amino Acids/Dextrose/ Fat Emulsion Intravenous 1,920 ml @ 80 mls/hr TPN CONT 10/04/19 22:00 10/05/19 21:59 DC 10/04/19 21:32 80 MLS/HR Potassium Acetate 40 meq/Magnesium Sulfate 5 meq/ Multivitamins 10 ml/Chromium/ Copper/Manganese/ Seleni/Zn 1 ml/ Insulin Human Regular 30 unit/ Total Parenteral Nutrition/Amino Acids/Dextrose/ Fat Emulsion Intravenous 1,920 ml @ 80 mls/hr TPN CONT 10/03/19 22:00 10/04/19 19:34 DC 10/03/19 21:54 80 MLS/HR Potassium Acetate 55 meq/Magnesium Sulfate 20 meq/ Calcium Gluconate 10 meq/ Multivitamins 10 ml/Chromium/ Copper/Manganese/ Seleni/Zn 0.5 ml/ Insulin Human Regular 30 unit/ Total Parenteral Nutrition/Amino Acids/Dextrose/ Fat Emulsion Intravenous 1,920 ml @ 80 mls/hr TPN CONT 08/18/19 22:00 08/19/19 21:59 DC 08/19/19 01:00 80 MLS/HR Potassium Acetate 55 meq/Magnesium Sulfate 20 meq/ Calcium Gluconate 10 meq/ Multivitamins 10 ml/Chromium/ Copper/Manganese/ Seleni/Zn 0.5 ml/ Insulin Human Regular 35 unit/ Total Parenteral Nutrition/Amino Acids/Dextrose/ Fat Emulsion Intravenous 1,920 ml @ 80 mls/hr TPN CONT 08/16/19 22:00 08/17/19 21:59 DC 08/16/19 22:02 80 MLS/HR Potassium Acetate 60 meq/Magnesium Sulfate 10 meq/ Multivitamins 10 ml/Chromium/ Copper/Manganese/ Seleni/Zn 1 ml/ Insulin Human Regular 20 unit/ Total Parenteral Nutrition/Amino Acids/Dextrose/ Fat Emulsion Intravenous 1,920 ml @ 80 mls/hr TPN CONT 10/05/19 22:00 10/06/19 21:59 DC 10/05/19 21:55 80 MLS/HR Potassium Acetate 60 meq/Magnesium Sulfate 14 meq/ Multivitamins 10 ml/Chromium/ Copper/Manganese/ Seleni/Zn 1 ml/ Insulin Human Regular 15 unit/ Sodium Chloride 20 meq/Total Parenteral Nutrition/Amino Acids/Dextrose/ Fat Emulsion Intravenous 1,920 ml @ 80 mls/hr TPN CONT 10/10/19 22:00 10/11/19 21:59 DC 10/10/19 21:54 80 MLS/HR Potassium Acetate 60 meq/Magnesium Sulfate 14 meq/ Multivitamins 10 ml/Chromium/ Copper/Manganese/ Seleni/Zn 1 ml/ Insulin Human Regular 15 unit/ Total Parenteral Nutrition/Amino Acids/Dextrose/ Fat Emulsion Intravenous 1,920 ml @ 80 mls/hr TPN CONT 10/09/19 22:00 10/10/19 21:59 DC 10/09/19 22:22 80 MLS/HR Potassium Acetate 60 meq/Magnesium Sulfate 14 meq/ Multivitamins 10 ml/Chromium/ Copper/Manganese/ Seleni/Zn 1 ml/ Insulin Human Regular 20 unit/ Total Parenteral Nutrition/Amino Acids/Dextrose/ Fat Emulsion Intravenous 1,920 ml @ 80 mls/hr TPN CONT 10/06/19 22:00 10/07/19 21:59 DC 10/06/19 22:26 80 MLS/HR Potassium Acetate 60 meq/Magnesium Sulfate 5 meq/ Multivitamins 10 ml/Chromium/ Copper/Manganese/ Seleni/Zn 1 ml/ Insulin Human Regular 30 unit/ Total Parenteral Nutrition/Amino Acids/Dextrose/ Fat Emulsion Intravenous 1,920 ml @ 80 mls/hr TPN CONT 09/24/19 22:00 09/25/19 21:59 DC 09/24/19 21:54 80 MLS/HR Potassium Acetate 65 meq/Magnesium Sulfate 20 meq/ Calcium Gluconate 10 meq/ Multivitamins 10 ml/Chromium/ Copper/Manganese/ Seleni/Zn 0.5 ml/ Insulin Human Regular 30 unit/ Total Parenteral Nutrition/Amino Acids/Dextrose/ Fat Emulsion Intravenous 1,920 ml @ 80 mls/hr TPN CONT 08/17/19 22:00 08/18/19 21:59 DC 08/17/19 22:22 80 MLS/HR Potassium Acetate 80 meq/Magnesium Sulfate 5 meq/ Multivitamins 10 ml/Chromium/ Copper/Manganese/ Seleni/Zn 1 ml/ Insulin Human Regular 20 unit/ Total Parenteral Nutrition/Amino Acids/Dextrose/ Fat Emulsion Intravenous 1,920 ml @ 80 mls/hr TPN CONT 09/23/19 22:00 09/24/19 21:59 DC 09/23/19 21:59 80 MLS/HR Prochlorperazine Edisylate (Compazine) 5 mg PACU PRN PRN 08/15/19 07:00 08/16/19 06:59 DC Propofol (Diprivan) 200 mg STK-MED ONCE 10/18/19 07:44 10/18/19 07:44 DC Ringer's Solution 1,000 ml @ 30 mls/hr Q24H 08/15/19 07:00 08/15/19 18:59 DC Rocuronium [place] (Zemuron) 100 mg STK-MED ONCE 10/18/19 07:44 10/18/19 07:44 DC Saliva Substitute (Biotene Moisturizing Mouth) 2 spray PRN Q15MIN PRN 09/08/19 11:00 Sevoflurane (Ultane) 60 ml STK-MED ONCE 08/15/19 12:26 08/15/19 12:27 DC Sodium Bicarbonate 150 meq/Dextrose 1,150 ml @ 75 mls/hr 1X ONCE 10/18/19 16:30 10/19/19 07:49 DC 10/18/19 20:02 75 MLS/HR Sodium Bicarbonate 50 meq/Sodium Chloride 1,050 ml @ 75 mls/hr Q14H 07/06/19 07:30 07/11/19 10:28 DC 07/10/19 21:10 75 MLS/HR Sodium Acetate 50 meq/Potassium Acetate 55 meq/ Magnesium Sulfate 20 meq/Calcium Gluconate 10 meq/ Multivitamins 10 ml/Chromium/ Copper/Manganese/ Seleni/Zn 0.5 ml/ Insulin Human Regular 35 unit/ Total Parenteral Nutrition/Amino Acids/Dextrose/ Fat Emulsion Intravenous 1,800 ml @ 75 mls/hr TPN CONT 08/13/19 22:00 08/14/19 21:59 DC 08/13/19 22:03 75 MLS/HR Sodium Bicarbonate (Sodium Bicarb Adult 8.4% Syr) 100 meq 1X ONCE 10/18/19 16:30 10/18/19 16:31 DC 10/18/19 17:07 100 MEQ Sodium Chloride 1,000 ml @ 125 mls/hr 1X ONCE 11/24/19 07:45 11/24/19 15:44 DC 11/24/19 08:20 125 MLS/HR Sodium Chloride (Normal Saline Flush) 3 ml QSHIFT PRN 10/18/19 14:45 11/21/19 09:45 DC Sodium Chloride 80 meq/Potassium Chloride 30 meq/ Potassium Acetate 30 meq/Magnesium Sulfate 14 meq/ Multivitamins 10 ml/Chromium/ Copper/Manganese/ Seleni/Zn 1 ml/ Insulin Human Regular 15 unit/ Total Parenteral Nutrition/Amino Acids/Dextrose/ Fat Emulsion Intravenous 1,920 ml @ 80 mls/hr TPN CONT 10/19/19 22:00 10/20/19 21:59 DC 10/19/19 23:05 80 MLS/HR Sodium Chloride 90 meq/Calcium Gluconate 10 meq/ Multivitamins 10 ml/Chromium/ Copper/Manganese/ Seleni/Zn 0.5 ml/ Total Parenteral Nutrition/Amino Acids/Dextrose/ Fat Emulsion Intravenous 1,512 ml @ 63 mls/hr TPN CONT 07/06/19 22:00 07/07/19 21:59 DC 07/06/19 22:06 63 MLS/HR Sodium Chloride 90 meq/Calcium Gluconate 10 meq/ Multivitamins 10 ml/Chromium/ Copper/Manganese/ Seleni/Zn 1 ml/ Total Parenteral Nutrition/Amino Acids/Dextrose/ Fat Emulsion Intravenous 55.005 ml @ 2.292 mls/hr TPN CONT 07/06/19 22:00 07/06/19 12:33 DC Sodium Chloride 90 meq/Magnesium Sulfate 10 meq/ Calcium Gluconate 20 meq/ Multivitamins 10 ml/Chromium/ Copper/Manganese/ Seleni/Zn 0.5 ml/ Total Parenteral Nutrition/Amino Acids/Dextrose/ Fat Emulsion Intravenous 1,512 ml @ 63 mls/hr TPN CONT 07/07/19 22:00 07/08/19 21:59 DC 07/07/19 22:25 63 MLS/HR Sodium Chloride 90 meq/Magnesium Sulfate 12 meq/ Calcium Gluconate 15 meq/ Multivitamins 10 ml/Chromium/ Copper/Manganese/ Seleni/Zn 0.5 ml/ Insulin Human Regular 25 unit/ Total Parenteral Nutrition/Amino Acids/Dextrose/ Fat Emulsion Intravenous 1,400 ml @ 58.333 mls/ hr TPN CONT 07/27/19 22:00 07/28/19 21:59 DC 07/27/19 21:41 58.333 MLS/HR Sodium Chloride 90 meq/Potassium Chloride 15 meq/ Magnesium Sulfate 12 meq/Calcium Gluconate 15 meq/ Multivitamins 10 ml/Chromium/ Copper/Manganese/ Seleni/Zn 0.5 ml/ Insulin Human Regular 25 unit/ Total Parenteral Nutrition/Amino Acids/Dextrose/ Fat Emulsion Intravenous 1,400 ml @ 58.333 mls/ hr TPN CONT 07/26/19 22:00 07/27/19 21:59 DC 07/26/19 22:13 58.333 MLS/HR Sodium Chloride 90 meq/Potassium Chloride 15 meq/ Potassium Phosphate 10 mmol/ Magnesium Sulfate 8 meq/Calcium Gluconate 15 meq/ Multivitamins 10 ml/Chromium/ Copper/Manganese/ Seleni/Zn 0.5 ml/ Insulin Human Regular 25 unit/ Total Parenteral Nutrition/Amino Acids/Dextrose/ Fat Emulsion Intravenous 1,400 ml @ 58.333 mls/ hr TPN CONT 07/24/19 22:00 07/25/19 21:59 DC 07/24/19 21:20 58.333 MLS/HR Sodium Chloride 90 meq/Potassium Chloride 15 meq/ Potassium Phosphate 10 mmol/ Magnesium Sulfate 10 meq/Calcium Gluconate 20 meq/ Multivitamins 10 ml/Chromium/ Copper/Manganese/ Seleni/Zn 0.5 ml/ Total Parenteral Nutrition/Amino Acids/Dextrose/ Fat Emulsion Intravenous 1,400 ml @ 58.333 mls/ hr TPN CONT 07/11/19 22:00 07/12/19 21:59 DC 07/11/19 21:42 58.333 MLS/HR Sodium Chloride 90 meq/Potassium Chloride 15 meq/ Potassium Phosphate 10 mmol/ Magnesium Sulfate 12 meq/Calcium Gluconate 15 meq/ Multivitamins 10 ml/Chromium/ Copper/Manganese/ Seleni/Zn 0.5 ml/ Insulin Human Regular 25 unit/ Total Parenteral Nutrition/Amino Acids/Dextrose/ Fat Emulsion Intravenous 1,400 ml @ 58.333 mls/ hr TPN CONT 07/25/19 22:00 07/26/19 21:59 DC 07/25/19 22:24 58.333 MLS/HR Sodium Chloride 90 meq/Potassium Chloride 15 meq/ Potassium Phosphate 15 mmol/ Magnesium Sulfate 10 meq/Calcium Gluconate 15 meq/ Multivitamins 10 ml/Chromium/ Copper/Manganese/ Seleni/Zn 0.5 ml/ Total Parenteral Nutrition/Amino Acids/Dextrose/ Fat Emulsion Intravenous 1,400 ml @ 58.333 mls/ hr TPN CONT 07/12/19 22:00 07/13/19 21:59 DC 07/12/19 22:17 58.333 MLS/HR Sodium Chloride 90 meq/Potassium Chloride 15 meq/ Potassium Phosphate 15 mmol/ Magnesium Sulfate 10 meq/Calcium Gluconate 20 meq/ Multivitamins 10 ml/Chromium/ Copper/Manganese/ Seleni/Zn 0.5 ml/ Total Parenteral Nutrition/Amino Acids/Dextrose/ Fat Emulsion Intravenous 1,200 ml @ 50 mls/hr TPN CONT 07/10/19 22:00 07/10/19 14:17 DC Sodium Chloride 90 meq/Potassium Chloride 15 meq/ Potassium Phosphate 18 mmol/ Magnesium Sulfate 8 meq/Calcium Gluconate 15 meq/ Multivitamins 10 ml/Chromium/ Copper/Manganese/ Seleni/Zn 0.5 ml/ Insulin Human Regular 10 unit/ Total Parenteral Nutrition/Amino Acids/Dextrose/ Fat Emulsion Intravenous 1,400 ml @ 58.333 mls/ hr TPN CONT 07/15/19 22:00 07/16/19 21:59 DC 07/15/19 21:43 58.333 MLS/HR Sodium Chloride 90 meq/Potassium Chloride 15 meq/ Potassium Phosphate 18 mmol/ Magnesium Sulfate 8 meq/Calcium Gluconate 15 meq/ Multivitamins 10 ml/Chromium/ Copper/Manganese/ Seleni/Zn 0.5 ml/ Insulin Human Regular 15 unit/ Total Parenteral Nutrition/Amino Acids/Dextrose/ Fat Emulsion Intravenous 1,400 ml @ 58.333 mls/ hr TPN CONT 07/18/19 22:00 07/19/19 21:59 DC 07/18/19 21:47 58.333 MLS/HR Sodium Chloride 90 meq/Potassium Chloride 15 meq/ Potassium Phosphate 18 mmol/ Magnesium Sulfate 8 meq/Calcium Gluconate 15 meq/ Multivitamins 10 ml/Chromium/ Copper/Manganese/ Seleni/Zn 0.5 ml/ Insulin Human Regular 20 unit/ Total Parenteral Nutrition/Amino Acids/Dextrose/ Fat Emulsion Intravenous 1,400 ml @ 58.333 mls/ hr TPN CONT 07/21/19 22:00 07/22/19 21:59 DC 07/21/19 22:45 58.333 MLS/HR Sodium Chloride 90 meq/Potassium Chloride 15 meq/ Potassium Phosphate 18 mmol/ Magnesium Sulfate 8 meq/Calcium Gluconate 15 meq/ Multivitamins 10 ml/Chromium/ Copper/Manganese/ Seleni/Zn 0.5 ml/ Total Parenteral Nutrition/Amino Acids/Dextrose/ Fat Emulsion Intravenous 1,400 ml @ 58.333 mls/ hr TPN CONT 07/14/19 22:00 07/15/19 21:59 DC 07/14/19 22:00 58.333 MLS/HR Sodium Chloride 90 meq/Potassium Chloride 30 meq/ Potassium Acetate 30 meq/Magnesium Sulfate 15 meq/ Multivitamins 10 ml/Chromium/ Copper/Manganese/ Seleni/Zn 1 ml/ Insulin Human Regular 15 unit/ Total Parenteral Nutrition/Amino Acids/Dextrose/ Fat Emulsion Intravenous 1,680 ml @ 70 mls/hr TPN CONT 11/03/19 22:00 11/04/19 21:59 DC 11/03/19 22:06 70 MLS/HR Sodium Chloride 90 meq/Potassium Phosphate 15 mmol/ Magnesium Sulfate 12 meq/Calcium Gluconate 15 meq/ Multivitamins 10 ml/Chromium/ Copper/Manganese/ Seleni/Zn 0.5 ml/ Insulin Human Regular 30 unit/ Total Parenteral Nutrition/Amino Acids/Dextrose/ Fat Emulsion Intravenous 1,400 ml @ 58.333 mls/ hr TPN CONT 07/29/19 22:00 07/30/19 21:59 DC 07/29/19 21:49 58.333 MLS/HR Sodium Chloride 90 meq/Potassium Phosphate 15 mmol/ Magnesium Sulfate 12 meq/Calcium Gluconate 15 meq/ Multivitamins 10 ml/Chromium/ Copper/Manganese/ Seleni/Zn 0.5 ml/ Insulin Human Regular 40 unit/ Total Parenteral Nutrition/Amino Acids/Dextrose/ Fat Emulsion Intravenous 1,400 ml @ 58.333 mls/ hr TPN CONT 07/30/19 22:00 07/31/19 21:59 DC 07/30/19 21:21 58.333 MLS/HR Sodium Chloride 90 meq/Potassium Phosphate 19 mmol/ Magnesium Sulfate 12 meq/Calcium Gluconate 15 meq/ Multivitamins 10 ml/Chromium/ Copper/Manganese/ Seleni/Zn 0.5 ml/ Insulin Human Regular 40 unit/ Total Parenteral Nutrition/Amino Acids/Dextrose/ Fat Emulsion Intravenous 1,400 ml @ 58.333 mls/ hr TPN CONT 07/31/19 22:00 08/01/19 21:59 DC 07/31/19 21:54 58.333 MLS/HR Sodium Chloride 90 meq/Potassium Phosphate 5 mmol/ Magnesium Sulfate 12 meq/Calcium Gluconate 15 meq/ Multivitamins 10 ml/Chromium/ Copper/Manganese/ Seleni/Zn 0.5 ml/ Insulin Human Regular 30 unit/ Total Parenteral Nutrition/Amino Acids/Dextrose/ Fat Emulsion Intravenous 1,400 ml @ 58.333 mls/ hr TPN CONT 07/28/19 22:00 07/29/19 21:59 DC 07/28/19 22:08 58.333 MLS/HR Sodium Chloride 100 meq/Potassium Chloride 30 meq/ Potassium Acetate 30 meq/Magnesium Sulfate 12 meq/ Multivitamins 10 ml/Chromium/ Copper/Manganese/ Seleni/Zn 1 ml/ Insulin Human Regular 15 unit/ Total Parenteral Nutrition/Amino Acids/Dextrose/ Fat Emulsion Intravenous 1,680 ml @ 70 mls/hr TPN CONT 10/23/19 22:00 10/24/19 21:59 DC 10/23/19 21:23 70 MLS/HR Sodium Chloride 100 meq/Potassium Chloride 40 meq/ Magnesium Sulfate 15 meq/Calcium Gluconate 15 meq/ Multivitamins 10 ml/Chromium/ Copper/Manganese/ Seleni/Zn 0.5 ml/ Insulin Human Regular 35 unit/ Total Parenteral Nutrition/Amino Acids/Dextrose/ Fat Emulsion Intravenous 1,400 ml @ 58.333 mls/ hr TPN CONT 08/07/19 22:00 08/08/19 21:59 DC 08/07/19 22:46 58.333 MLS/HR Sodium Chloride 100 meq/Potassium Chloride 40 meq/ Magnesium Sulfate 20 meq/Calcium Gluconate 10 meq/ Multivitamins 10 ml/Chromium/ Copper/Manganese/ Seleni/Zn 0.5 ml/ Insulin Human Regular 35 unit/ Total Parenteral Nutrition/Amino Acids/Dextrose/ Fat Emulsion Intravenous 1,400 ml @ 58.333 mls/ hr TPN CONT 08/11/19 22:00 08/12/19 21:59 DC 08/12/19 00:06 58.333 MLS/HR Sodium Chloride 100 meq/Potassium Chloride 40 meq/ Magnesium Sulfate 20 meq/Calcium Gluconate 15 meq/ Multivitamins 10 ml/Chromium/ Copper/Manganese/ Seleni/Zn 0.5 ml/ Insulin Human Regular 35 unit/ Total Parenteral Nutrition/Amino Acids/Dextrose/ Fat Emulsion Intravenous 1,400 ml @ 58.333 mls/ hr TPN CONT 08/10/19 22:00 08/11/19 21:59 DC 08/10/19 22:27 58.333 MLS/HR Sodium Chloride 100 meq/Potassium Phosphate 10 mmol/ Magnesium Sulfate 12 meq/Calcium Gluconate 15 meq/ Multivitamins 10 ml/Chromium/ Copper/Manganese/ Seleni/Zn 0.5 ml/ Insulin Human Regular 35 unit/ Potassium Chloride 20 meq/ Total Parenteral Nutrition/Amino Acids/Dextrose/ Fat Emulsion Intravenous 1,400 ml @ 58.333 mls/ hr TPN CONT 08/04/19 22:00 08/05/19 21:59 DC 08/04/19 22:10 58.333 MLS/HR Sodium Chloride 100 meq/Potassium Phosphate 19 mmol/ Magnesium Sulfate 12 meq/Calcium Gluconate 15 meq/ Multivitamins 10 ml/Chromium/ Copper/Manganese/ Seleni/Zn 0.5 ml/ Insulin Human Regular 40 unit/ Potassium Chloride 20 meq/ Total Parenteral Nutrition/Amino Acids/Dextrose/ Fat Emulsion Intravenous 1,400 ml @ 58.333 mls/ hr TPN CONT 08/03/19 22:00 08/04/19 21:59 DC 08/03/19 21:20 58.333 MLS/HR Sodium Chloride 100 meq/Potassium Phosphate 5 mmol/ Magnesium Sulfate 12 meq/Calcium Gluconate 15 meq/ Multivitamins 10 ml/Chromium/ Copper/Manganese/ Seleni/Zn 0.5 ml/ Insulin Human Regular 35 unit/ Potassium Chloride 20 meq/ Total Parenteral Nutrition/Amino Acids/Dextrose/ Fat Emulsion Intravenous 1,400 ml @ 58.333 mls/ hr TPN CONT 08/05/19 22:00 08/06/19 21:59 DC 08/05/19 22:59 58.333 MLS/HR Sodium Chloride 110 meq/Potassium Chloride 30 meq/ Potassium Acetate 30 meq/Magnesium Sulfate 15 meq/ Multivitamins 10 ml/Chromium/ Copper/Manganese/ Seleni/Zn 1 ml/ Insulin Human Regular 15 unit/ Total Parenteral Nutrition/Amino Acids/Dextrose/ Fat Emulsion Intravenous 1,680 ml @ 70 mls/hr TPN CONT 11/05/19 22:00 11/06/19 21:59 DC 11/05/19 22:01 70 MLS/HR Sodium Chloride 110 meq/Sodium Phosphate 10 mmol/ Potassium Chloride 30 meq/ Potassium Acetate 30 meq/Magnesium Sulfate 15 meq/ Multivitamins 10 ml/Chromium/ Copper/Manganese/ Seleni/Zn 1 ml/ Insulin Human Regular 15 unit/ Total Parenteral Nutrition/Amino Acids/Dextrose/ Fat Emulsion Intravenous 1,680 ml @ 70 mls/hr TPN CONT 11/06/19 22:00 11/07/19 21:59 DC 11/06/19 22:03 70 MLS/HR Sodium Chloride 120 meq/Sodium Phosphate 10 mmol/ Potassium Chloride 30 meq/ Potassium Acetate 30 meq/Magnesium Sulfate 15 meq/ Multivitamins 10 ml/Chromium/ Copper/Manganese/ Seleni/Zn 1 ml/ Insulin Human Regular 15 unit/ Total Parenteral Nutrition/Amino Acids/Dextrose/ Fat Emulsion Intravenous 1,680 ml @ 70 mls/hr TPN CONT 11/13/19 22:00 11/14/19 21:59 Cancel Succinylcholine Chloride (Anectine) 120 mg 1X ONCE 07/11/19 08:30 07/11/19 08:31 DC 07/11/19 08:34 120 MG Vancomycin HCl (Vanco Per Pharmacy) 1 each PRN DAILY PRN 10/30/19 09:15 11/02/19 07:41 DC 11/01/19 02:46 1 EACH Vancomycin HCl (Vancomycin Random Level) 1 each 1X ONCE 11/01/19 01:00 11/01/19 01:01 DC 11/01/19 01:00 1 EACH Vancomycin HCl (Vancomycin Trough Level) 1 each 1X ONCE 11/02/19 09:30 11/02/19 09:31 Cancel Vancomycin HCl 1.5 gm/Sodium Chloride 500 ml @ 250 mls/hr Q12H 11/01/19 10:00 11/02/19 07:41 DC 11/01/19 22:07 250 MLS/HR Vancomycin HCl 2 gm/Sodium Chloride 500 ml @ 250 mls/hr 1X ONCE 10/30/19 10:00 10/30/19 11:59 DC 10/30/19 10:34 250 MLS/HR Vasopressin (Vasostrict) 20 unit STK-MED ONCE 10/18/19 12:23 10/18/19 12:23 DC Vasopressin 20 unit/Dextrose 101 ml @ 12 mls/hr CONT PRN 10/18/19 15:30 11/21/19 09:45 DC 10/25/19 04:17 12 MLS/HR Vecuronium [place] (Norcuron Bolus) 6 mg PRN Q6HRS PRN 08/25/19 19:15 08/25/19 19:35 DC Vitamin A/Vitamin D (Vitamin A & D Ointment) 1 ramu PRN Q1HR PRN 11/22/19 09:15 11/26/19 05:26 1 RAMU Zoledronic Acid 100 ml @ 400 mls/hr 1X ONCE 11/25/19 12:00 11/25/19 12:14 DC 11/25/19 13:04 400 MLS/HR Labs: Lab Laboratory Tests Test 11/27/19 12:27 11/27/19 17:17 11/27/19 17:51 11/27/19 19:50 Glucose (Fingerstick) 163 mg/dL (70-99) 164 mg/dL (70-99) Phosphorus Level 2.7 mg/dL (2.6-4.7) Lactic Acid Level < 0.3 mmol/L (0.4-2.0) Test 11/27/19 23:01 11/28/19 03:00 Glucose (Fingerstick) 166 mg/dL (70-99) White Blood Count 23.1 x10^3/uL (4.0-11.0) Red Blood Count 3.29 x10^6/uL (3.50-5.40) Hemoglobin 9.3 g/dL (12.0-15.5) Hematocrit 29.2 % (36.0-47.0) Mean Corpuscular Volume 89 fL (79-100) Mean Corpuscular Hemoglobin 28 pg (25-35) Mean Corpuscular Hemoglobin Concent 32 g/dL (31-37) Red Cell Distribution Width 18.9 % (11.5-14.5) Platelet Count 620 x10^3/uL (140-400) Neutrophils (%) (Auto) 82 % (31-73) Lymphocytes (%) (Auto) 12 % (24-48) Monocytes (%) (Auto) 6 % (0-9) Eosinophils (%) (Auto) 0 % (0-3) Basophils (%) (Auto) 0 % (0-3) Neutrophils # (Auto) 18.9 x10^3/uL (1.8-7.7) Lymphocytes # (Auto) 2.9 x10^3/uL (1.0-4.8) Monocytes # (Auto) 1.3 x10^3/uL (0.0-1.1) Eosinophils # (Auto) 0.0 x10^3/uL (0.0-0.7) Basophils # (Auto) 0.1 x10^3/uL (0.0-0.2) Sodium Level 145 mmol/L (136-145) Potassium Level 5.6 mmol/L (3.5-5.1) Chloride Level 111 mmol/L (98-107) Carbon Dioxide Level 26 mmol/L (21-32) Anion Gap 8 (6-14) Blood Urea Nitrogen 35 mg/dL (7-20) Creatinine 1.2 mg/dL (0.6-1.0) Estimated GFR (Cockcroft-Gault) 47.7 Glucose Level 138 mg/dL (70-99) Calcium Level 9.1 mg/dL (8.5-10.1) Micro NEG ALEXANDRA 56 PSEUDOMONAS AERUGINOSA ANTIBIOTIC RESULT INTERPRETATION AMIKACIN <=16 S AZTREONAM >16 R CEFTAZIDIME >16 R CIPROFLOXACIN <=0.25 S CEFEPIME 16 I GENTAMICIN <=2 S LEVOFLOXACIN <=0.5 S CONTINUED ON NEXT PAGE RUN DATE: 09/28/19 [facility] *LIVE* PAGE 2 RUN TIME: 1121 Specimen Inquiry SPEC: [id number] PATIENT: SCOTT CUELLAR [id number] (Continued) Procedure Result ANTIMICROBIAL SUSCEPTIBILITY Preliminary (continued) MEROPENEM <=1 S PIPERACILLIN/TAZOBACTAM 64 S TOBRAMYCIN <=2 S Unless otherwise specified, Testing Performed by: [address] [address] For Inquires, the Physician may contact the Microbiology department at [phone] Objective: Assessment: Patient with prolonged hospitalization more than 4 months Multiple medical problems Multiple surgical procedures S/P Exp. Isak, ronel WILEY G-J tube & pancreatic necrosectomy on 10/17, C. parapsilosis & PSAE (I-merrem/ceftazidime/AZT/cefepime)) Leukocytosis - better Loose stool but on tube feed - WBC down and no gross fever Fever - 11/11 c-diff neg Anemia Acute gallstone pancreatitis with persistent necrosis - 07/27. CT A/P Increased ascites. 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 status post KAYLIN drain placement; C. parapsilosis. s/p drain 08/23 + yeast & high amylase; s/p additional drain on 08/25. Drains removed. -08/23. fluid devyn parapsilosis fluid, amylase high - 09/23 showed multiple pseudocysts, slight larger on the right. s/p drains x 3, 09/24. + PSAE (MDRO-R Cefepime, Zosyn ALEXANDRA < 64) and yeast, -09/24 s/p drain replacement x 3; fluid cult PSAE (MDRO), yeast; treated -10/29 CT A/P shows smaller fluid collections. -722 CT abdomen and pelvis drains in place Ascites s/p paracentesis 08/02 & 08/23. C. parapsilosis Cholelithiasis with thickening of the gallbladder wall. JUANA, Hyperkalemia, Metabolic acidosis off dialysis Acute hypoxic resp failure. trach/vent. 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 difficile negative Monitor WBC/temp Wound care /drain management as directed Contact isolation for CRE/MDRO D/W RN watermelon inspector prognosis poor D/w nursing YUNIOR JONES MD Nov 28, 2019 08:57
[2019-11-28 10:09] LABS: BILIRUBIN,URINE NEGATIVE (NEG); CLARITY,URINE TURBID; COLOR,URINE AMBER; NITRITE,URINE NEGATIVE (NEG); PROTEIN,URINE 100 mg/dL (NEG-TRACE); UROBILINOGEN,URINE 0.2 mg/dL (0.2 mg/dL)
[2019-11-28 10:17] LABS: WBC,URINE TNTC /HPF (0-4)
[2019-11-28 10:18] LABS: RBC,URINE FIELD OBSCURED /HPF (0-2)
[2019-11-28 10:19] LABS: BACTERIA,URINE MANY /HPF (0-FEW); YEAST,URINE PRESENT /HPF
--- NOTE | 2019-11-28 10:21 | PDOC ---
Date of Service: DATE: 11/28/19 TIME: 10:17 Objective: Objective: D/w nursing - fevers. Vital Signs: Vital Signs Date Time Temp Pulse Resp B/P (MAP) Pulse Ox O2 Delivery O2 Flow Rate FiO2 11/28/19 08:42 95 Room Air 11/28/19 07:00 99.2 136 20 107/64 (78) 99.2 11/28/19 05:00 2.0 Labs: Laboratory Tests Test 11/27/19 12:27 11/27/19 17:17 11/27/19 17:51 11/27/19 19:50 Glucose (Fingerstick) 163 mg/dL 164 mg/dL Phosphorus Level 2.7 mg/dL Lactic Acid Level < 0.3 mmol/L Test 11/27/19 23:01 11/28/19 03:00 Glucose (Fingerstick) 166 mg/dL White Blood Count 23.1 x10^3/uL Red Blood Count 3.29 x10^6/uL Hemoglobin 9.3 g/dL Hematocrit 29.2 % Mean Corpuscular Volume 89 fL Mean Corpuscular Hemoglobin 28 pg Mean Corpuscular Hemoglobin Concent 32 g/dL Red Cell Distribution Width 18.9 % Platelet Count 620 x10^3/uL Neutrophils (%) (Auto) 82 % Lymphocytes (%) (Auto) 12 % Monocytes (%) (Auto) 6 % Eosinophils (%) (Auto) 0 % Basophils (%) (Auto) 0 % Neutrophils # (Auto) 18.9 x10^3/uL Lymphocytes # (Auto) 2.9 x10^3/uL Monocytes # (Auto) 1.3 x10^3/uL Eosinophils # (Auto) 0.0 x10^3/uL Basophils # (Auto) 0.1 x10^3/uL Sodium Level 145 mmol/L Potassium Level 5.6 mmol/L Chloride Level 111 mmol/L Carbon Dioxide Level 26 mmol/L Anion Gap 8 Blood Urea Nitrogen 35 mg/dL Creatinine 1.2 mg/dL Estimated GFR (Cockcroft-Gault) 47.7 Glucose Level 138 mg/dL Calcium Level 9.1 mg/dL ORDERED: FUNGAL CULT,BLD Procedure Result FUNGAL CULTURE,BLOOD Final Final report ANIBAL CULT RES 1 Final Comment No yeast or mold isolated after 4 weeks. Imaging: CXR 11/26 Impression: 1. Decreased small bilateral layering pleural effusions interstitial thickening. 2. Low lung volumes. PE: GEN: chronically ill NEURO/PSYCH: sleeping, not awakened A/P: S/p pancreatic necrosectomy, fevers -- Continue same per GI. Justicifation of Admission Dx: Justifications for Admission: Justification of Admission Dx: Yes CYNDEE FALCON Nov 28, 2019 10:21
--- NOTE | 2019-11-28 10:24 | PDOC ---
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 Metabolic encephalopathy. Fevers. Metabolic acidosis. Diffuse pulmonary infiltrate. Pleural effusion. Pancreatitis, necrotizing. Gallstone. Leukocytosis. Lymphopenia. Electrolytes imbalances. Hyperglycemia. DM. HTN. HLD. Anemia. Abnormal CXR. Obesity. Ascites and pleural effusion Ileus with vomiting Anemia JUANA Hyperkalemia Metabolic acidosis Hypertension S/P trache Anemia S/P IR drain placement, 09/24 She had exploratory laparotomy, lysis of adhesions, subtotal cholecystectomy with cholangiogram, gastrojejunostomy tube placement, pancreatic necrosectomy on 10/17 Plan Neurology signs off Keppra if she has further seizures. Treat medical diseases. Subjective None Objective Vital Signs Date Time Temp Pulse Resp B/P (MAP) Pulse Ox O2 Delivery O2 Flow Rate FiO2 11/28/19 08:42 95 Room Air 11/28/19 07:00 99.2 136 20 107/64 (78) 99.2 11/28/19 05:00 2.0 Intake and Output 11/28/19 07:00 Intake Total 1042 ml Output Total 2745 ml Balance -1703 ml Intake Oral 0 ml Tube Feeding 942 ml Other 100 ml Output Urine Total 175 ml Gastric Drainage Total 0 ml Drainage Total 2570 ml # Bowel Movements 5 PHYSICAL EXAM Sleepy, off vent, trache capped, attempts to verbalize, follows commands PERRL. EOMI. CN: no focal findings. Muscle tone: normal. Muscle strength: 2-3/5 strength DTR: 1+ Plantar reflex: Silent Gait: not examined in bed. Sensory exam: nonfocal Cerebellar: not testable Review of Relevant I have reviewed the following items kolby (where applicable) has been applied. Labs Laboratory Tests Test 11/26/19 12:23 11/26/19 18:29 11/27/19 02:33 11/27/19 05:20 Glucose (Fingerstick) 129 mg/dL (70-99) 143 mg/dL (70-99) 119 mg/dL (70-99) Sodium Level 143 mmol/L (136-145) Potassium Level 4.7 mmol/L (3.5-5.1) Chloride Level 109 mmol/L (98-107) Carbon Dioxide Level 28 mmol/L (21-32) Anion Gap 6 (6-14) Blood Urea Nitrogen 21 mg/dL (7-20) Creatinine 0.8 mg/dL (0.6-1.0) Estimated GFR (Cockcroft-Gault) 76.2 Glucose Level 160 mg/dL (70-99) Calcium Level 10.1 mg/dL (8.5-10.1) Magnesium Level 1.9 mg/dL (1.8-2.4) Test 11/27/19 07:44 11/27/19 12:27 11/27/19 17:17 11/27/19 17:51 Glucose (Fingerstick) 133 mg/dL (70-99) 163 mg/dL (70-99) 164 mg/dL (70-99) Phosphorus Level 2.7 mg/dL (2.6-4.7) Test 11/27/19 19:50 11/27/19 23:01 11/28/19 03:00 11/28/19 09:45 Lactic Acid Level < 0.3 mmol/L (0.4-2.0) Glucose (Fingerstick) 166 mg/dL (70-99) White Blood Count 23.1 x10^3/uL (4.0-11.0) Red Blood Count 3.29 x10^6/uL (3.50-5.40) Hemoglobin 9.3 g/dL (12.0-15.5) Hematocrit 29.2 % (36.0-47.0) Mean Corpuscular Volume 89 fL (79-100) Mean Corpuscular Hemoglobin 28 pg (25-35) Mean Corpuscular Hemoglobin Concent 32 g/dL (31-37) Red Cell Distribution Width 18.9 % (11.5-14.5) Platelet Count 620 x10^3/uL (140-400) Neutrophils (%) (Auto) 82 % (31-73) Lymphocytes (%) (Auto) 12 % (24-48) Monocytes (%) (Auto) 6 % (0-9) Eosinophils (%) (Auto) 0 % (0-3) Basophils (%) (Auto) 0 % (0-3) Neutrophils # (Auto) 18.9 x10^3/uL (1.8-7.7) Lymphocytes # (Auto) 2.9 x10^3/uL (1.0-4.8) Monocytes # (Auto) 1.3 x10^3/uL (0.0-1.1) Eosinophils # (Auto) 0.0 x10^3/uL (0.0-0.7) Basophils # (Auto) 0.1 x10^3/uL (0.0-0.2) Sodium Level 145 mmol/L (136-145) Potassium Level 5.6 mmol/L (3.5-5.1) Chloride Level 111 mmol/L (98-107) Carbon Dioxide Level 26 mmol/L (21-32) Anion Gap 8 (6-14) Blood Urea Nitrogen 35 mg/dL (7-20) Creatinine 1.2 mg/dL (0.6-1.0) Estimated GFR (Cockcroft-Gault) 47.7 Glucose Level 138 mg/dL (70-99) Calcium Level 9.1 mg/dL (8.5-10.1) Urine Collection Type Unknown Urine Color Hollie Urine Clarity Turbid Urine pH 5.0 (<5.0-8.0) Urine Specific [place] >=1.030 (1.000-1.030) Urine Protein 100 mg/dL (NEG-TRACE) Urine Glucose (UA) Negative mg/dL (NEG) Urine Ketones (Stick) Trace mg/dL (NEG) Urine Blood Large (NEG) Urine Nitrite Negative (NEG) Urine Bilirubin Negative (NEG) Urine Urobilinogen Dipstick 0.2 mg/dL (0.2 mg/dL) Urine Leukocyte Esterase Large (NEG) Urine RBC Field obscured /HPF (0-2) Urine WBC Tntc /HPF (0-4) Urine Bacteria Many /HPF (0-FEW) Urine Yeast Present /HPF Laboratory Tests Test 11/27/19 12:27 11/27/19 17:17 11/27/19 17:51 11/27/19 19:50 Glucose (Fingerstick) 163 mg/dL (70-99) 164 mg/dL (70-99) Phosphorus Level 2.7 mg/dL (2.6-4.7) Lactic Acid Level < 0.3 mmol/L (0.4-2.0) Test 11/27/19 23:01 11/28/19 03:00 11/28/19 09:45 Glucose (Fingerstick) 166 mg/dL (70-99) White Blood Count 23.1 x10^3/uL (4.0-11.0) Red Blood Count 3.29 x10^6/uL (3.50-5.40) Hemoglobin 9.3 g/dL (12.0-15.5) Hematocrit 29.2 % (36.0-47.0) Mean Corpuscular Volume 89 fL (79-100) Mean Corpuscular Hemoglobin 28 pg (25-35) Mean Corpuscular Hemoglobin Concent 32 g/dL (31-37) Red Cell Distribution Width 18.9 % (11.5-14.5) Platelet Count 620 x10^3/uL (140-400) Neutrophils (%) (Auto) 82 % (31-73) Lymphocytes (%) (Auto) 12 % (24-48) Monocytes (%) (Auto) 6 % (0-9) Eosinophils (%) (Auto) 0 % (0-3) Basophils (%) (Auto) 0 % (0-3) Neutrophils # (Auto) 18.9 x10^3/uL (1.8-7.7) Lymphocytes # (Auto) 2.9 x10^3/uL (1.0-4.8) Monocytes # (Auto) 1.3 x10^3/uL (0.0-1.1) Eosinophils # (Auto) 0.0 x10^3/uL (0.0-0.7) Basophils # (Auto) 0.1 x10^3/uL (0.0-0.2) Sodium Level 145 mmol/L (136-145) Potassium Level 5.6 mmol/L (3.5-5.1) Chloride Level 111 mmol/L (98-107) Carbon Dioxide Level 26 mmol/L (21-32) Anion Gap 8 (6-14) Blood Urea Nitrogen 35 mg/dL (7-20) Creatinine 1.2 mg/dL (0.6-1.0) Estimated GFR (Cockcroft-Gault) 47.7 Glucose Level 138 mg/dL (70-99) Calcium Level 9.1 mg/dL (8.5-10.1) Urine Collection Type Unknown Urine Color Hollie Urine Clarity Turbid Urine pH 5.0 (<5.0-8.0) Urine Specific [place] >=1.030 (1.000-1.030) Urine Protein 100 mg/dL (NEG-TRACE) Urine Glucose (UA) Negative mg/dL (NEG) Urine Ketones (Stick) Trace mg/dL (NEG) Urine Blood Large (NEG) Urine Nitrite Negative (NEG) Urine Bilirubin Negative (NEG) Urine Urobilinogen Dipstick 0.2 mg/dL (0.2 mg/dL) Urine Leukocyte Esterase Large (NEG) Urine RBC Field obscured /HPF (0-2) Urine WBC Tntc /HPF (0-4) Urine Bacteria Many /HPF (0-FEW) Urine Yeast Present /HPF Microbiology 11/13/19 Gram Stain - Final, Complete 11/13/19 Aerobic Culture - Final, Complete 11/13/19 Blood Culture - Final, Complete NO GROWTH AFTER 5 DAYS 11/13/19 Urine Culture - Final, Complete 11/08/19 Gram Stain - Final, Complete 11/08/19 Aerobic and Anaerobic Culture - Final, Complete 11/06/19 Gram Stain Evaluation - Final, Complete 11/06/19 Respiratory Culture - Final, Complete 11/06/19 Antimicrobic Susceptibility - Final, Complete 10/18/19 Gram Stain - Final, Complete 10/18/19 Aerobic and Anaerobic Culture - Final, Complete 10/18/19 Antimicrobic Susceptibility - Final, Complete Medications Current Medications Sodium Chloride 1,000 ml @ 1,000 mls/hr Q1H IV Last administered on 07/04/19at 03:00; Start 07/04/19 at 03:00; Stop 07/04/19 at 03:59; Status DC Ondansetron HCl (Zofran) 4 mg 1X ONCE IVP Last administered on 07/04/19at 03:27; Start 07/04/19 at 03:00; Stop 07/04/19 at 03:01; Status DC Morphine Sulfate (Morphine Sulfate) 4 mg 1X ONCE IV ; Start 07/04/19 at 03:00; Stop 07/04/19 at 03:01; Status Cancel Ketorolac Tromethamine (Toradol 30mg Vial) 30 mg 1X ONCE IV Last administered on 07/04/19at 02:54; Start 07/04/19 at 03:00; Stop 07/04/19 at 03:01; Status DC Fentanyl Citrate (Fentanyl 2ml Vial) 25 mcg 1X ONCE IVP Last administered on 07/04/19at 03:23; Start 07/04/19 at 03:30; Stop 07/04/19 at 03:31; Status DC Fentanyl Citrate (Fentanyl 2ml Vial) 100 mcg STK-MED ONCE .ROUTE ; Start 07/04/19 at 03:18; Stop 07/04/19 at 03:18; Status DC Iohexol (Omnipaque 350 Mg/ml) 90 ml 1X ONCE IV Last administered on 07/04/19at 03:25; Start 07/04/19 at 03:30; Stop 07/04/19 at 03:31; Status DC Info (CONTRAST GIVEN -- Rx MONITORING) 1 each PRN DAILY PRN MC SEE COMMENTS; Start 07/04/19 at 03:30; Stop 07/06/19 at 03:29; Status DC Hydromorphone HCl (Dilaudid) 0.5 mg 1X ONCE IV Last administered on 07/04/19at 03:55; Start 07/04/19 at 04:30; Stop 07/04/19 at 04:32; Status DC Ondansetron HCl (Zofran) 4 mg PRN Q8HRS PRN IV NAUSEA/VOMITING 1ST CHOICE; Start 07/04/19 at 05:00; Stop 07/04/19 at 09:27; Status DC Morphine Sulfate (Morphine Sulfate) 2 mg PRN Q2HR PRN IV SEVERE PAIN 7-10 Last administered on 07/05/19at 12:26; Start 07/04/19 at 05:00; Stop 07/05/19 at 14:15; Status DC Sodium Chloride 1,000 ml @ 125 mls/hr Q8H IV Last administered on 07/04/19at 20:56; Start 07/04/19 at 05:00; Stop 07/05/19 at 04:59; Status DC Hydromorphone HCl (Dilaudid) 0.5 mg PRN Q3HRS PRN IV SEVERE PAIN 7-10 Last administered on 07/05/19at 10:06; Start 07/04/19 at 05:00; Stop 07/05/19 at 12:01; Status DC Piperacillin Sod/ Tazobactam Sod 4.5 gm/Sodium Chloride 100 ml @ 200 mls/hr 1X ONCE IV Last administered on 07/04/19at 05:44; Start 07/04/19 at 06:00; Stop 07/04/19 at 06:29; Status DC Ondansetron HCl (Zofran) 4 mg PRN Q4HRS PRN IV NAUSEA/VOMITING 1ST CHOICE Last administered on 11/27/19at 23:15; Start 07/04/19 at 09:30 Insulin Human Lispro (HumaLOG) 0-9 UNITS Q6HRS SQ Last administered on 11/27/19at 18:06; Start 07/04/19 at 09:30 Dextrose (Dextrose 50%-Water Syringe) 12.5 gm PRN Q15MIN PRN IV SEE COMMENTS; Start 07/04/19 at 09:30 Pantoprazole Sodium (PROTONIX VIAL for IV PUSH) 40 mg DAILYAC IVP Last administered on 11/28/19at 08:22; Start 07/04/19 at 11:30 Prochlorperazine Edisylate (Compazine) 10 mg PRN Q6HRS PRN IV NAUSEA/VOMITING, 2nd CHOICE Last administered on 11/28/19at 00:42; Start 07/04/19 at 17:45 Atenolol (Tenormin) 100 mg DAILY PO ; Start 07/05/19 at 09:00; Stop 07/04/19 at 20:08; Status DC Metoprolol Tartrate (Lopressor Vial) 2.5 mg Q6HRS IVP Last administered on 07/05/19at 05:51; Start 07/04/19 at 20:15; Stop 07/05/19 at 10:02; Status DC Metoprolol Tartrate (Lopressor Vial) 5 mg Q6HRS IVP Last administered on 07/14/19at 00:12; Start 07/05/19 at 10:15; Stop 07/16/19 at 08:48; Status DC Hydromorphone HCl (Dilaudid) 1 mg PRN Q3HRS PRN IV SEVERE PAIN 7-10 Last administered on 07/11/19at 05:13; Start 07/05/19 at 12:00; Stop 07/19/19 at 00:25; Status DC Lidocaine HCl (Buffered Lidocaine 1%) 3 ml STK-MED ONCE .ROUTE ; Start 07/05/19 at 12:55; Stop 07/05/19 at 12:56; Status DC Albumin Human 500 ml @ 125 mls/hr 1X ONCE IV Last administered on 07/05/19at 14:33; Start 07/05/19 at 14:30; Stop 07/05/19 at 18:32; Status DC Norepinephrine Bitartrate 8 mg/ Dextrose 258 ml @ 17.299 mls/ hr CONT PRN IV PER PROTOCOL Last administered on 08/02/19at 12:48; Start 07/05/19 at 15:30; Stop 08/05/19 at 09:19; Status DC Sodium Chloride 1,000 ml @ 125 mls/hr Q8H IV Last administered on 07/05/19at 21:04; Start 07/05/19 at 16:00; Stop 07/06/19 at 02:42; Status DC Albumin Human 500 ml @ 125 mls/hr PRN BID PRN IV After every 2L NSS & BP < 90mm Last administered on 10/18/19at 16:06; Start 07/05/19 at 16:00; Stop 10/21/19 at 09:30; Status DC Iohexol (Omnipaque 300 Mg/ml) 60 ml 1X ONCE IV Last administered on 07/05/19at 17:20; Start 07/05/19 at 17:00; Stop 07/05/19 at 17:01; Status DC Info (CONTRAST GIVEN -- Rx MONITORING) 1 each PRN DAILY PRN MC SEE COMMENTS; Start 07/05/19 at 17:00; Stop 07/07/19 at 16:59; Status DC Meropenem 1 gm/ Sodium Chloride 100 ml @ 200 mls/hr Q8HRS IV Last administered on 07/06/19at 05:45; Start 07/05/19 at 20:00; Stop 07/06/19 at 08:48; Status DC Furosemide (Lasix) 40 mg 1X ONCE IVP Last administered on 07/05/19at 22:12; Start 07/05/19 at 22:30; Stop 07/05/19 at 22:31; Status DC Calcium Chloride 1000 mg/Sodium Chloride 110 ml @ 220 mls/hr 1X ONCE IV Last administered on 07/05/19at 22:11; Start 07/05/19 at 22:30; Stop 07/05/19 at 22:59; Status DC Albuterol Sulfate (Ventolin Neb Soln) 2.5 mg 1X ONCE NEB Last administered on 07/06/19at 00:56; Start 07/05/19 at 22:30; Stop 07/05/19 at 22:31; Status DC Insulin Human Regular (HumuLIN R VIAL) 5 unit 1X ONCE IV Last administered on 07/05/19at 22:14; Start 07/05/19 at 22:30; Stop 07/05/19 at 22:31; Status DC Magnesium Sulfate 50 ml @ 25 mls/hr 1X ONCE IV Last administered on 07/06/19at 02:57; Start 07/06/19 at 03:00; Stop 07/06/19 at 04:59; Status DC Calcium Gluconate 1000 mg/Sodium Chloride 110 ml @ 220 mls/hr 1X ONCE IV Last administered on 07/06/19at 02:46; Start 07/06/19 at 03:00; Stop 07/06/19 at 03:29; Status DC Sodium Chloride 1,000 ml @ 200 mls/hr Q5H IV Last administered on 07/06/19at 02:46; Start 07/06/19 at 03:00; Stop 07/06/19 at 10:21; Status DC Calcium Gluconate 1000 mg/Sodium Chloride 110 ml @ 220 mls/hr 1X ONCE IV Last administered on 07/06/19at 03:21; Start 07/06/19 at 03:30; Stop 07/06/19 at 03:59; Status DC Sodium Bicarbonate 50 meq/Sodium Chloride 1,050 ml @ 75 mls/hr Q14H IV Last administered on 07/10/19at 21:10; Start 07/06/19 at 07:30; Stop 07/11/19 at 10:28; Status DC Calcium Gluconate 2000 mg/Sodium Chloride 120 ml @ 220 mls/hr 1X ONCE IV Last administered on 07/06/19at 09:05; Start 07/06/19 at 07:30; Stop 07/06/19 at 08:02; Status DC Lidocaine HCl (Xylocaine-Mpf 1% 2ml Vial) 2 ml STK-MED ONCE .ROUTE ; Start 07/05 at 08:47; Stop 07/06/19 at 08:47; Status DC Meropenem 500 mg/ Sodium Chloride 50 ml @ 100 mls/hr Q12HR IV Last administer ed on 07/11/19at 21:01; Start 07/06/19 at 18:00; Stop 07/12/19 at 07:58; Status DC Lidocaine HCl (Buffered Lidocaine 1%) 3 ml STK-MED ONCE .ROUTE ; Start 07/06/19 at 09:46; Stop 07/06/19 at 09:46; Status DC Lidocaine HCl (Buffered Lidocaine 1%) 6 ml 1X ONCE INJ Last administered on 07/06/19at 10:26; Start 07/06/19 at 10:15; Stop 07/06/19 at 10:16; Status DC Info (Tpn Per Pharmacy) 1 each PRN DAILY PRN MC SEE COMMENTS Last administered on 11/13/19at 08:31; Start 07/06/19 at 12:00; Stop 11/13/19 at 10:41; Status DC Sodium Chloride 1,000 ml @ 1,000 mls/hr Q1H PRN IV hypotension; Start 07/06/19 at 12:07; Stop 07/06/19 at 18:06; Status DC Diphenhydramine HCl (Benadryl) 25 mg 1X PRN PRN IV ITCHING; Start 07/06/19 at 12:15; Stop 07/07/19 at 12:14; Status DC Diphenhydramine HCl (Benadryl) 25 mg 1X PRN PRN IV ITCHING; Start 07/06/19 at 12:15; Stop 07/07/19 at 12:14; Status DC Sodium Chloride 1,000 ml @ 400 mls/hr Q2H30M PRN IV PATENCY; Start 07/06/19 at 12:07; Stop 07/07/19 at 00:06; Status DC Info (PHARMACY MONITORING -- do not chart) 1 each PRN DAILY PRN MC SEE COMMENTS; Start 07/06/19 at 12:15; Stop 07/08/19 at 08:13; Status DC Sodium Chloride 90 meq/Calcium Gluconate 10 meq/ Multivitamins 10 ml/Chromium/ Copper/Manganese/ Seleni/Zn 1 ml/ Total Parenteral Nutrition/Amino Acids/Dextrose/ Fat Emulsion Intravenous 55.005 ml @ 2.292 mls/hr TPN CONT IV ; Start 07/06/19 at 22:00; Stop 07/06/19 at 12:33; Status DC Info (Tpn Per Pharmacy) 1 each PRN DAILY PRN MC SEE COMMENTS; Start 3/18/20 at 12:30; Status UNV Sodium Chloride 90 meq/Calcium Gluconate 10 meq/ Multivitamins 10 ml/Chromium/ Copper/Manganese/ Seleni/Zn 0.5 ml/ Total Parenteral Nutrition/Amino Acids/Dextrose/ Fat Emulsion Intravenous 1,512 ml @ 63 mls/hr TPN CONT IV Last administered on 07/06/19at 22:06; Start 07/06/19 at 22:00; Stop 07/07/19 at 21:59; Status DC Calcium Carbonate/ Glycine (Tums) 500 mg PRN AFTMEALHC PRN PO INDIGESTION; Start 07/06/19 at 17:45; Stop 08/31/19 at 10:25; Status DC Calcium Gluconate (Calcium Gluconate) 2,000 mg 1X ONCE IVP Last administered on 07/07/19at 02:19; Start 07/07/19 at 02:15; Stop 07/07/19 at 02:16; Status DC Calcium Chloride 3000 mg/Sodium Chloride 1,030 ml @ 50 mls/hr [id number] IV Last administered on 07/09/19at 02:17; Start 07/07/19 at 08:00; Stop 07/09/19 at 15:23; Status DC Lorazepam (Ativan Inj) 1 mg PRN Q4HRS PRN IVP ANXIETY / AGITATION, 2nd choic Last administered on 08/05/19at 03:51; Start 07/07/19 at 09:00; Stop 08/05/19 at 09:19; Status DC Sodium Chloride 1,000 ml @ 1,000 mls/hr Q1H PRN IV hypotension; Start 07/07/19 at 08:56; Stop 07/07/19 at 14:55; Status DC Albumin Human 200 ml @ 200 mls/hr 1X PRN PRN IV Hypotension; Start 07/07/19 at 09:00; Stop 07/07/19 at 14:59; Status DC Diphenhydramine HCl (Benadryl) 25 mg 1X PRN PRN IV ITCHING; Start 07/07/19 at 09:00; Stop 07/08/19 at 08:59; Status DC Diphenhydramine HCl (Benadryl) 25 mg 1X PRN PRN IV ITCHING; Start 07/07/19 at 09:00; Stop 07/08/19 at 08:59; Status DC Sodium Chloride 1,000 ml @ 400 mls/hr Q2H30M PRN IV PATENCY; Start 07/07/19 at 08:56; Stop 07/07/19 at 20:55; Status DC Info (PHARMACY MONITORING -- do not chart) 1 each PRN DAILY PRN MC SEE COMMENT S; Start 07/07/19 at 09:00; Status UNV Info (PHARMACY MONITORING -- do not chart) 1 each PRN DAILY PRN MC SEE COMMENTS; Start 07/07/19 at 09:00; Stop 07/08/19 at 08:13; Status DC Digoxin (Lanoxin) 500 mcg 1X ONCE IV Last administered on 07/07/19at 10:04; Start 07/07/19 at 10:00; Stop 07/07/19 at 10:01; Status DC Digoxin (Lanoxin) 125 mcg 1X ONCE IV Last administered on 07/07/19at 17:10; Start 07/07/19 at 18:00; Stop 07/07/19 at 18:01; Status DC Magnesium Sulfate 100 ml @ 25 mls/hr 1X ONCE IV Last administered on 07/07/19at 12:48; Start 07/07/19 at 13:00; Stop 07/07/19 at 16:59; Status DC Sodium Chloride 90 meq/Magnesium Sulfate 10 meq/ Calcium Gluconate 20 meq/ Multivitamins 10 ml/Chromium/ Copper/Manganese/ Seleni/Zn 0.5 ml/ Total Parenteral Nutrition/Amino Acids/Dextrose/ Fat Emulsion Intravenous 1,512 ml @ 63 mls/hr TPN CONT IV Last administered on 07/07/19at 22:25; Start 07/07/19 at 22:00; Stop 07/08/19 at 21:59; Status DC Sodium Chloride 1,000 ml @ 1,000 mls/hr Q1H PRN IV hypotension; Start 07/08/19 at 08:05; Stop 07/08/19 at 14:04; Status DC Albumin Human 200 ml @ 200 mls/hr 1X ONCE IV Last administered on 07/08/19at 08:57; Start 07/08/19 at 08:15; Stop 07/08/19 at 09:14; Status DC Diphenhydramine HCl (Benadryl) 25 mg 1X PRN PRN IV ITCHING; Start 07/08/19 at 08:15; Stop 07/09/19 at 08:14; Status DC Diphenhydramine HCl (Benadryl) 25 mg 1X PRN PRN IV ITCHING; Start 07/08/19 at 08:15; Stop 07/09/19 at 08:14; Status DC Sodium Chloride 1,000 ml @ 400 mls/hr Q2H30M PRN IV PATENCY; Start 07/08/19 at 08:05; Stop 07/08/19 at 20:04; Status DC Info (PHARMACY MONITORING -- do not chart) 1 each PRN DAILY PRN MC SEE COM MENTS; Start 07/08/19 at 08:15; Stop 07/12/19 at 07:57; Status DC Sodium Chloride 90 meq/Potassium Chloride 15 meq/ Potassium Phosphate 10 mmol/ Magnesium Sulfate 10 meq/Calcium Gluconate 20 meq/ Multivitamins 10 ml/Chromium/ Copper/Manganese/ Seleni/Zn 0.5 ml/ Total Parenteral Nutrition/Amino Acids/Dextrose/ Fat Emulsion Intravenous 1,512 ml @ 63 mls/hr TPN CONT IV Last administered on 07/08/19at 21:01; Start 07/08/19 at 22:00; Stop 07/09/19 at 21:59; Status DC Potassium Chloride/Water 100 ml @ 100 mls/hr 1X ONCE IV Last administered on 07/08/19at 14:09; Start 07/08/19 at 14:00; Stop 07/08/19 at 14:59; Status DC Benzocaine (Hurricaine One) 1 spray 1X ONCE MM Last administered on 07/08/19at 16:38; Start 07/08/19 at 14:30; Stop 07/08/19 at 14:31; Status DC Lidocaine HCl (Glydo (Lidocaine) Jelly) 1 ramu 1X ONCE MM Last administered on 07/08/19at 16:38; Start 07/08/19 at 14:30; Stop 07/08/19 at 14:31; Status DC Linezolid/Dextrose 300 ml @ 300 mls/hr Q12HR IV Last administered on 07/14/19at 21:04; Start 07/08/19 at 20:00; Stop 07/15/19 at 07:50; Status DC Acetaminophen (Tylenol) 650 mg PRN Q6HRS PRN PO MILD PAIN / TEMP; Start 07/09/19 at 03:30; Stop 07/09/19 at 03:36; Status DC Acetaminophen (Tylenol) 650 mg PRN Q6HRS PRN PEG MILD PAIN / TEMP Last a dministered on 08/04/19at 19:56; Start 07/09/19 at 03:36; Stop 08/31/19 at 10:25; Status DC Sodium Chloride 1,000 ml @ 1,000 mls/hr Q1H PRN IV hypotension; Start 07/09/19 at 07:50; Stop 07/09/19 at 13:49; Status DC Albumin Human 200 ml @ 200 mls/hr 1X PRN PRN IV Hypotension; Start 07/09/19 at 08:00; Stop 07/09/19 at 13:59; Status DC Sodium Chloride (Normal Saline Flush) 10 ml 1X PRN PRN IV AP catheter pack; Start 07/09/19 at 08:00; Stop 07/10/19 at 07:59; Status DC Sodium Chloride (Normal Saline Flush) 10 ml 1X PRN PRN IV SEROLOGIST catheter pack; Start 07/09/19 at 08:00; Stop 07/10/19 at 07:59; Status DC Sodium Chloride 1,000 ml @ 400 mls/hr Q2H30M PRN IV PATENCY; Start 07/09/19 at 07:50; Stop 07/09/19 at 19:49; Status DC Info (PHARMACY MONITORING -- do not chart) 1 each PRN DAILY PRN MC SEE COMMENTS; Start 07/09/19 at 08:00; Status UNV Info (PHARMACY MONITORING -- do not chart) 1 each PRN DAILY PRN MC SEE COMMENTS; Start 07/09/19 at 08:00; Stop 07/11/19 at 08:25; Status DC Sodium Chloride 90 meq/Potassium Chloride 15 meq/ Potassium Phosphate 10 mmol/ Magnesium Sulfate 10 meq/Calcium Gluconate 20 meq/ Multivitamins 10 ml/Chromium/ Copper/Manganese/ Seleni/Zn 0.5 ml/ Total Parenteral Nutrition/Amino Acids/Dextrose/ Fat Emulsion Intravenous 1,512 ml @ 63 mls/hr TPN CONT IV Last administered on 07/09/19at 20:57; Start 07/09/19 at 22:00; Stop 07/10/19 at 21:59; Status DC Sodium Chloride 90 meq/Potassium Chloride 15 meq/ Potassium Phosphate 15 mmol/ Magnesium Sulfate 10 meq/Calcium Gluconate 20 meq/ Multivitamins 10 ml/Chromium/ Copper/Manganese/ Seleni/Zn 0.5 ml/ Total Parenteral Nutrition/Amino Acids/Dextrose/ Fat Emulsion Intravenous 1,512 ml @ 63 mls/hr TPN CONT IV ; Start 07/10/19 at 22:00; Stop 07/10/19 at 14:16; Status DC Sodium Chloride 90 meq/Potassium Chloride 15 meq/ Potassium Phosphate 15 mmol/ Magnesium Sulfate 10 meq/Calcium Gluconate 20 meq/ Multivitamins 10 ml/Chromium/ Copper/Manganese/ Seleni/Zn 0.5 ml/ Total Parenteral Nutrition/Amino Acids/Dextrose/ Fat Emulsion Intravenous 1,200 ml @ 50 mls/hr TPN CONT IV ; Start 07/10/19 at 22:00; Stop 07/10/19 at 14:17; Status DC Sodium Chloride 90 meq/Potassium Chloride 15 meq/ Potassium Phosphate 10 mmol/ Magnesium Sulfate 10 meq/Calcium Gluconate 20 meq/ Multivitamins 10 ml/Chromium/ Copper/Manganese/ Seleni/Zn 0.5 ml/ Total Parenteral Nutrition/Amino Acids/Dextrose/ Fat Emulsion Intravenous 1,200 ml @ 50 mls/hr TPN CONT IV Last administered on 07/10/19at 23:29; Start 07/10/19 at 22:00; Stop 07/11/19 at 21:59; Status DC Sodium Chloride 1,000 ml @ 1,000 mls/hr Q1H PRN IV hypotension; Start 07/11/19 at 07:28; Stop 07/11/19 at 13:27; Status DC Albumin Human 200 ml @ 200 mls/hr 1X ONCE IV Last administered on 07/11/19at 08:51; Start 07/11/19 at 07:30; Stop 07/11/19 at 08:29; Status DC Diphenhydramine HCl (Benadryl) 25 mg 1X PRN PRN IV ITCHING; Start 07/11/19 at 07:30; Stop 07/12/19 at 07:29; Status DC Diphenhydramine HCl (Benadryl) 25 mg 1X PRN PRN IV ITCHING; Start 07/11/19 at 07:30; Stop 07/12/19 at 07:29; Status DC Sodium Chloride 1,000 ml @ 400 mls/hr Q2H30M PRN IV PATENCY; Start 07/11/19 at 07:28; Stop 07/11/19 at 19:27; Status DC Info (PHARMACY MONITORING -- do not chart) 1 each PRN DAILY PRN MC SEE COMMENTS; Start 07/11/19 at 07:30; Stop 07/22/19 at 13:01; Status DC Metronidazole 100 ml @ 100 mls/hr Q6HRS IV Last administered on 07/27/19at 06:26; Start 07/11/19 at 08:30; Stop 07/27/19 at 09:58; Status DC Micafungin Sodium 100 mg/Dextrose 100 ml @ 100 mls/hr Q24H IV Last administered on 08/18/19at 08:18; Start 07/11/19 at 09:00; Stop 08/18/19 at 20:58; Status DC Propofol 0 ml @ As Directed STK-MED ONCE IV ; Start 07/11/19 at 07:53; Stop 07/11/19 at 07:53; Status DC Etomidate (Amidate) 20 mg STK-MED ONCE IV ; Start 07/11/19 at 07:53; Stop 07/11/19 at 07:54; Status DC Midazolam HCl (Versed) 5 mg STK-MED ONCE .ROUTE ; Start 07/11/19 at 07:57; Stop 07/11/19 at 07:57; Status DC Fentanyl Citrate 30 ml @ 0 mls/hr CONT PRN IV SEE PROTOCOL Last administered on 08/05/19at 06:12; Start 07/11/19 at 08:15; Stop 08/05/19 at 09:19; Status DC Artificial Tears (Artificial Tears) 1 drop PRN Q1HR PRN OU DRY EYE, 1st choice; Start 07/11/19 at 08:15; Stop 08/17/19 at 05:31; Status DC Midazolam HCl 50 mg/Sodium Chloride 50 ml @ 0 mls/hr CONT PRN IV SEE PROTOCOL Last administered on 07/14/19at 22:39; Start 07/11/19 at 08:15; Stop 07/16/19 at 15:59; Status DC Etomidate (Amidate) 8 mg 1X ONCE IV Last administered on 07/11/19at 08:33; Start 07/11/19 at 08:30; Stop 07/11/19 at 08:31; Status DC Succinylcholine Chloride (Anectine) 120 mg 1X ONCE IV Last administered on 07/11/19at 08:34; Start 07/11/19 at 08:30; Stop 07/11/19 at 08:31; Status DC Midazolam HCl (Versed) 5 mg 1X ONCE IV ; Start 07/11/19 at 08:30; Stop 07/11/19 at 08:31; Status DC Potassium Chloride 15 meq/ Bicarbonate Dialysis Soln w/ out KCl 5,007.5 ml @ 1,000 mls/ hr Q5H1M IV Last administered on 07/12/19at 11:11; Start 07/11/19 at 12:00; Stop 07/12/19 at 11:15; Status DC Potassium Chloride 15 meq/ Bicarbonate Dialysis Soln w/ out KCl 5,007.5 ml @ 1,000 mls/ hr Q5H1M IV Last administered on 07/12/19at 11:12; Start 07/11/19 at 12:00; Stop 07/12/19 at 11:17; Status DC Potassium Chloride 15 meq/ Bicarbonate Dialysis Soln w/ out KCl 5,007.5 ml @ 1,000 mls/ hr Q5H1M IV Last administered on 07/12/19at 11:11; Start 07/11/19 at 12:00; Stop 07/12/19 at 11:19; Status DC Sodium Chloride 90 meq/Potassium Chloride 15 meq/ Potassium Phosphate 10 mmol/ Magnesium Sulfate 10 meq/Calcium Gluconate 20 meq/ Multivitamins 10 ml/Chromium/ Copper/Manganese/ Seleni/Zn 0.5 ml/ Total Parenteral Nutrition/Amino Acids/Dextrose/ Fat Emulsion Intravenous 1,400 ml @ 58.333 mls/ hr TPN CONT IV Last administered on 07/11/19at 21:42; Start 07/11/19 at 22:00; Stop 07/12/19 at 21:59; Status DC Heparin Sodium (Porcine) (Heparin Sodium) 5,000 unit Q8HRS SQ Last administered on 07/16/19at 05:55; Start 07/11/19 at 15:00; Stop 07/16/19 at 13:28; Status DC Meropenem 500 mg/ Sodium Chloride 50 ml @ 100 mls/hr Q6HRS IV Last administered on 07/13/19at 06:00; Start 07/12/19 at 09:00; Stop 07/13/19 at 07:29; Status DC Potassium Phosphate 20 mmol/ Sodium Chloride 106.6667 ml @ 51.667 m... 1X ONCE IV Last administered on 07/12/19at 11:22; Start 07/12/19 at 10:15; Stop 07/12/19 at 12:18; Status DC Acetaminophen (Tylenol Supp) 650 mg PRN Q6HRS PRN CO MILD PAIN / TEMP > 100.3'F Last administered on 11/27/19at 20:07; Start 07/12/19 at 10:30 Potassium Chloride/Water 100 ml @ 100 mls/hr Q1H IV Last administered on 07/12/19at 12:12; Start 07/12/19 at 11:00; Stop 07/12/19 at 12:59; Status DC Potassium Chloride 20 meq/ Bicarbonate Dialysis Soln w/ out KCl 5,010 ml @ 1,000 mls/hr Q5H1M IV Last administered on 07/13/19at 08:48; Start 07/12/19 at 12:00; Stop 07/13/19 at 13:03; Status DC Potassium Chloride 20 meq/ Bicarbonate Dialysis Soln w/ out KCl 5,010 ml @ 1,000 mls/hr Q5H1M IV Last administered on 07/17/19at 14:52; Start 07/12/19 at 11:30; Stop 07/17/19 at 19:59; Status DC Potassium Chloride 20 meq/ Bicarbonate Dialysis Soln w/ out KCl 5,010 ml @ 1,000 mls/hr Q5H1M IV Last administered on 07/17/19at 14:53; Start 07/12/19 at 11:30; Stop 07/17/19 at 19:59; Status DC Sodium Chloride 90 meq/Potassium Chloride 15 meq/ Potassium Phosphate 15 mmol/ Magnesium Sulfate 10 meq/Calcium Gluconate 15 meq/ Multivitamins 10 ml/Chromium/ Copper/Manganese/ Seleni/Zn 0.5 ml/ Total Parenteral Nutrition/Amino Acids/Dextrose/ Fat Emulsion Intravenous 1,400 ml @ 58.333 mls/ hr TPN CONT IV Last administered on 07/12/19at 22:17; Start 07/12/19 at 22:00; Stop 07/13/19 at 21:59; Status DC Cefepime HCl (Maxipime) 2 gm Q12HR IVP Last administered on 07/26/19at 20:56; Start 07/13/19 at 09:00; Stop 07/27/19 at 09:58; Status DC Daptomycin 500 mg/ Sodium Chloride 50 ml @ 100 mls/hr Q48H IV Last administered on 07/29/19at 09:57; Start 07/13/19 at 08:30; Stop 07/29/19 at 10:07; Status DC Lidocaine HCl (Buffered Lidocaine 1%) 3 ml 1X ONCE INJ Last administered on 07/13/19at 10:27; Start 07/13/19 at 10:30; Stop 07/13/19 at 10:31; Status DC Potassium Phosphate 20 mmol/ Sodium Chloride 106.6667 ml @ 51.667 m... 1X ONCE IV Last administered on 07/13/19at 12:51; Start 07/13/19 at 13:00; Stop 07/13/19 at 15:03; Status DC Sodium Chloride 90 meq/Potassium Chloride 15 meq/ Potassium Phosphate 18 mmol/ Magnesium Sulfate 8 meq/Calcium Gluconate 15 meq/ Multivitamins 10 ml/Chromium/ Copper/Manganese/ Seleni/Zn 0.5 ml/ Total Parenteral Nutrition/Amino Acids/Dextrose/ Fat Emulsion Intravenous 1,400 ml @ 58.333 mls/ hr TPN CONT IV Last administered on 07/13/19at 22:16; Start 07/13/19 at 22:00; Stop 07/14/19 at 21:59; Status DC Potassium Chloride 20 meq/ Bicarbonate Dialysis Soln w/ out KCl 5,010 ml @ 1,000 mls/hr Q5H1M IV Last administered on 07/17/19at 14:54; Start 07/13/19 at 16:00; Stop 07/17/19 at 19:59; Status DC Multi-Ingred Cream/Lotion/Oil/ Oint (Artificial Tears Eye Ointment) 1 ramu PRN Q1HR PRN OU DRY EYE, 2nd choice Last administered on 08/01/19at 08:19; Start 07/13/19 at 17:30; Stop 09/21/19 at 14:39; Status DC Sodium Chloride 90 meq/Potassium Chloride 15 meq/ Potassium Phosphate 18 mmol/ Magnesium Sulfate 8 meq/Calcium Gluconate 15 meq/ Multivitamins 10 ml/Chromium/ Copper/Manganese/ Seleni/Zn 0.5 ml/ Total Parenteral Nutrition/Amino Acids/Dextrose/ Fat Emulsion Intravenous 1,400 ml @ 58.333 mls/ hr TPN CONT IV Last administered on 07/14/19at 22:00; Start 07/14/19 at 22:00; Stop 07/15/19 at 21:59; Status DC Albumin Human 500 ml @ 125 mls/hr 1X ONCE IV ; Start 07/14/19 at 14:15; Stop 07/14/19 at 18:14; Status DC Sodium Chloride 90 meq/Potassium Chloride 15 meq/ Potassium Phosphate 18 mmol/ Magnesium Sulfate 8 meq/Calcium Gluconate 15 meq/ Multivitamins 10 ml/Chromium/ Copper/Manganese/ Seleni/Zn 0.5 ml/ Insulin Human Regular 10 unit/ Total Parenteral Nutrition/Amino Acids/Dextrose/ Fat Emulsion Intravenous 1,400 ml @ 58.333 mls/ hr TPN CONT IV Last administered on 07/15/19at 21:43; Start 07/15/19 at 22:00; Stop 07/16/19 at 21:59; Status DC Lidocaine HCl (Buffered Lidocaine 1%) 3 ml STK-MED ONCE .ROUTE ; Start 07/13/19 at 10:00; Stop 07/15/19 at 13:57; Status DC Midazolam HCl 100 mg/Sodium Chloride 100 ml @ 7 mls/hr CONT PRN IV SEE PROTOCOL Last administered on 07/27/19at 15:35; Start 07/16/19 at 16:00; Stop 09/21/19 at 14:38; Status DC Sodium Chloride 90 meq/Potassium Chloride 15 meq/ Potassium Phosphate 18 mmol/ Magnesium Sulfate 8 meq/Calcium Gluconate 15 meq/ Multivitamins 10 ml/Chromium/ Copper/Manganese/ Seleni/Zn 0.5 ml/ Insulin Human Regular 15 unit/ Total Parenteral Nutrition/Amino Acids/Dextrose/ Fat Emulsion Intravenous 1,400 ml @ 58.333 mls/ hr TPN CONT IV Last administered on 07/16/19at 20:34; Start 07/16/19 at 22:00; Stop 07/17/19 at 21:59; Status DC Info (Icu Electrolyte Protocol) 1 ea CONT PRN PRN MC PER PROTOCOL; Start 07/17/19 at 13:15 Sodium Chloride 90 meq/Potassium Chloride 15 meq/ Potassium Phosphate 18 mmol/ Magnesium Sulfate 8 meq/Calcium Gluconate 15 meq/ Multivitamins 10 ml/Chromium/ Copper/Manganese/ Seleni/Zn 0.5 ml/ Insulin Human Regular 15 unit/ Total Parenteral Nutrition/Amino Acids/Dextrose/ Fat Emulsion Intravenous 1,400 ml @ 58.333 mls/ hr TPN CONT IV Last administered on 07/17/19at 22:05; Start 07/17/19 at 22:00; Stop 07/18/19 at 21:59; Status DC Potassium Chloride 15 meq/ Bicarbonate Dialysis Soln w/ out KCl 5,007.5 ml @ 1,000 mls/ hr Q5H1M IV Last administered on 07/20/19at 18:14; Start 07/17/19 at 20:00; Stop 07/21/19 at 13:08; Status DC Potassium Chloride 15 meq/ Bicarbonate Dialysis Soln w/ out KCl 5,007.5 ml @ 1,000 mls/ hr Q5H1M IV Last administered on 07/20/19at 18:14; Start 07/17/19 at 2 0:00; Stop 07/21/19 at 13:08; Status DC Potassium Chloride 15 meq/ Bicarbonate Dialysis Soln w/ out KCl 5,007.5 ml @ 1,000 mls/ hr Q5H1M IV Last administered on 07/20/19at 18:14; Start 07/17/19 at 20:00; Stop 07/21/19 at 13:08; Status DC Iohexol (Omnipaque 240 Mg/ml) 30 ml 1X ONCE PO Last administered on 07/18/19at 11:30; Start 07/18/19 at 11:30; Stop 07/18/19 at 11:33; Status DC Info (CONTRAST GIVEN -- Rx MONITORING) 1 each PRN DAILY PRN MC SEE COMMENTS; Start 07/18/19 at 11:45; Stop 07/20/19 at 11:44; Status DC Sodium Chloride 90 meq/Potassium Chloride 15 meq/ Potassium Phosphate 18 mmol/ Magnesium Sulfate 8 meq/Calcium Gluconate 15 meq/ Multivitamins 10 ml/Chromium/ Copper/Manganese/ Seleni/Zn 0.5 ml/ Insulin Human Regular 15 unit/ Total Parenteral Nutrition/Amino Acids/Dextrose/ Fat Emulsion Intravenous 1,400 ml @ 58.333 mls/ hr TPN CONT IV Last administered on 07/18/19at 21:47; Start 07/18/19 at 22:00; Stop 07/19/19 at 21:59; Status DC Sodium Chloride 90 meq/Potassium Chloride 15 meq/ Potassium Phosphate 18 mmol/ Magnesium Sulfate 8 meq/Calcium Gluconate 15 meq/ Multivitamins 10 ml/Chromium/ Copper/Manganese/ Seleni/Zn 0.5 ml/ Insulin Human Regular 20 unit/ Total Parenteral Nutrition/Amino Acids/Dextrose/ Fat Emulsion Intravenous 1,400 ml @ 58.333 mls/ hr TPN CONT IV Last administered on 07/19/19at 21:36; Start 07/19/19 at 22:00; Stop 07/20/19 at 21:59; Status DC Alteplase, Recombinant (Cathflo For Central Catheter Clearance) 1 mg 1X ONCE INT CAT Last administered on 07/19/19at 20:03; Start 07/19/19 at 19:30; Stop 07/19/19 at 19:46; Status DC Alteplase, Recombinant (Cathflo For Central Catheter Clearance) 1 mg 1X ONCE IN T CAT Last administered on 07/19/19at 22:05; Start 07/19/19 at 22:00; Stop 07/19/19 at 22:01; Status DC Sodium Chloride 90 meq/Potassium Chloride 15 meq/ Potassium Phosphate 18 mmol/ Magnesium Sulfate 8 meq/Calcium Gluconate 15 meq/ Multivitamins 10 ml/Chromium/ Copper/Manganese/ Seleni/Zn 0.5 ml/ Insulin Human Regular 20 unit/ Total Parenteral Nutrition/Amino Acids/Dextrose/ Fat Emulsion Intravenous 1,400 ml @ 58.333 mls/ hr TPN CONT IV Last administered on 07/20/19at 21:30; Start 07/20/19 at 22:00; Stop 07/21/19 at 21:59; Status DC Dexmedetomidine HCl 400 mcg/ Sodium Chloride 100 ml @ 0 mls/hr CONT PRN IV ANXIETY / AGITATION Last administered on 09/17/19at 12:57; Start 07/21/19 at 08:15; Stop 09/17/19 at 18:31; Status DC Sodium Chloride 500 ml @ 500 mls/hr 1X PRN PRN IV ELEVATED BP, SEE COMMENTS; Start 07/21/19 at 08:15; Stop 11/23/19 at 09:08; Status DC Atropine Sulfate (ATROPINE 0.5mg SYRINGE) 0.5 mg PRN Q5MIN PRN IV SEE COMMENTS; Start 07/21/19 at 08:15; Stop 11/21/19 at 09:45; Status DC Furosemide (Lasix) 20 mg 1X ONCE IVP Last administered on 07/21/19at 08:19; Start 07/21/19 at 08:15; Stop 07/21/19 at 08:16; Status DC Lidocaine HCl (Buffered Lidocaine 1%) 3 ml STK-MED ONCE .ROUTE ; Start 07/21/19 at 08:39; Stop 07/21/19 at 08:39; Status DC Lidocaine HCl (Buffered Lidocaine 1%) 6 ml 1X ONCE INJ Last administered on 07/21/19at 09:05; Start 07/21/19 at 09:00; Stop 07/21/19 at 09:06; Status DC Sodium Chloride 90 meq/Potassium Chloride 15 meq/ Potassium Phosphate 18 mmol/ Magnesium Sulfate 8 meq/Calcium Gluconate 15 meq/ Multivitamins 10 ml/Chromium/ Copper/Manganese/ Seleni/Zn 0.5 ml/ Insulin Human Regular 20 unit/ Total Parenteral Nutrition/Amino Acids/Dextrose/ Fat Emulsion Intravenous 1,400 ml @ 58.333 mls/ hr TPN CONT IV Last administered on 07/21/19at 22:45; Start 07/21/19 at 22:00; Stop 07/22/19 at 21:59; Status DC Sodium Chloride 1,000 ml @ 1,000 mls/hr Q1H PRN IV hypotension; Start 07/22/19 at 07:30; Stop 07/22/19 at 13:29; Status DC Albumin Human 200 ml @ 200 mls/hr 1X PRN PRN IV Hypotension Last administered on 07/22/19at 09:36; Start 07/22/19 at 07:30; Stop 07/22/19 at 13:29; Status DC Sodium Chloride (Normal Saline Flush) 10 ml 1X PRN PRN IV AP catheter pack; Start 07/22/19 at 07:30; Stop 07/22/19 at 21:29; Status DC Sodium Chloride (Normal Saline Flush) 10 ml 1X PRN PRN IV SEROLOGIST catheter pack; Start 07/22/19 at 07:30; Stop 07/23/19 at 07:29; Status DC Sodium Chloride 1,000 ml @ 400 mls/hr Q2H30M PRN IV PATENCY; Start 07/22/19 at 07:30; Stop 07/22/19 at 19:29; Status DC Info (PHARMACY MONITORING -- do not chart) 1 each PRN DAILY PRN MC SEE COMMENTS; Start 07/22/19 at 07:30; Stop 07/22/19 at 13:02; Status DC Info (PHARMACY MONITORING -- do not chart) 1 each PRN DAILY PRN MC SEE COMMENTS; Start 07/22/19 at 07:30; Stop 07/24/19 at 12:45; Status DC Sodium Chloride 90 meq/Potassium Chloride 15 meq/ Potassium Phosphate 10 mmol/ Magnesium Sulfate 8 meq/Calcium Gluconate 15 meq/ Multivitamins 10 ml/Chromium/ Copper/Manganese/ Seleni/Zn 0.5 ml/ Insulin Human Regular 25 unit/ Total Parenteral Nutrition/Amino Acids/Dextrose/ Fat Emulsion Intravenous 1,400 ml @ 58.333 mls/ hr TPN CONT IV Last administered on 07/22/19at 22:19; Start 07/22/19 at 22:00; Stop 07/23/19 at 21:59; Status DC Heparin Sodium (Porcine) (Heparin Sodium) 5,000 unit Q12HR SQ Last administered on 08/14/19at 08:59; Start 07/22/19 at 21:00; Stop 08/14/19 at 10:05; Status DC Ondansetron HCl (Zofran) 4 mg PRN Q6HRS PRN IV NAUSEA/VOMITING; Start 07/25/19 at 07:00; Stop 07/26/19 at 06:59; Status DC Fentanyl Citrate (Fentanyl 2ml Vial) 25 mcg PRN Q5MIN PRN IV MILD PAIN 1-3; Start 07/25/19 at 07:00; Stop 07/26/19 at 06:59; Status DC Fentanyl Citrate (Fentanyl 2ml Vial) 50 mcg PRN Q5MIN PRN IV MODERATE TO SEVERE PAIN; Start 07/25/19 at 07:00; Stop 07/26/19 at 06:59; Status DC Ringer's Solution 1,000 ml @ 30 mls/hr Q24H IV ; Start 07/25/19 at 07:00; Stop 07/25/19 at 18:59; Status DC Lidocaine HCl (Xylocaine-Mpf 1% 2ml Vial) 2 ml PRN 1X PRN ID PRIOR TO IV START; Start 07/25/19 at 07:00; Stop 07/26/19 at 06:59; Status DC Prochlorperazine Edisylate (Compazine) 5 mg PACU PRN PRN IV NAUSEA, MRX1; Start 07/25/19 at 07:00; Stop 07/26/19 at 06:59; Status DC Sodium Chloride 1,000 ml @ 1,000 mls/hr Q1H PRN IV hypotension; Start 07/23/19 at 09:10; Stop 07/23/19 at 15:09; Status DC Albumin Human 200 ml @ 200 mls/hr 1X PRN PRN IV Hypotension Last administered on 07/23/19at 10:10; Start 07/23/19 at 09:15; Stop 07/23/19 at 15:14; Status DC Sodium Chloride 1,000 ml @ 400 mls/hr Q2H30M PRN IV PATENCY; Start 07/23/19 at 09:10; Stop 07/23/19 at 21:09; Status DC Info (PHARMACY MONITORING -- do not chart) 1 each PRN DAILY PRN MC SEE COMMENTS; Start 07/23/19 at 09:15; Stop 07/24/19 at 12:45; Status DC Info (PHARMACY MONITORING -- do not chart) 1 each PRN DAILY PRN MC SEE COMMENTS; Start 07/23/19 at 09:15; Stop 07/24/19 at 12:45; Status DC Sodium Chloride 90 meq/Potassium Chloride 15 meq/ Potassium Phosphate 10 mmol/ Magnesium Sulfate 8 meq/Calcium Gluconate 15 meq/ Multivitamins 10 ml/Chromium/ Copper/Manganese/ Seleni/Zn 0.5 ml/ Insulin Human Regular 25 unit/ Total Parenteral Nutrition/Amino Acids/Dextrose/ Fat Emulsion Intravenous 1,400 ml @ 58.333 mls/ hr TPN CONT IV Last administered on 07/23/19at 22:10; Start 07/23/19 at 22:00; Stop 07/24/19 at 21:59; Status DC Magnesium Sulfate 50 ml @ 25 mls/hr PRN DAILY PRN IV for Mag < 1.7 on am labs Last administered on 10/06/19at 10:57; Start 07/24/19 at 09:15 Sodium Chloride 90 meq/Potassium Chloride 15 meq/ Potassium Phosphate 10 mmol/ Magnesium Sulfate 8 meq/Calcium Gluconate 15 meq/ Multivitamins 10 ml/Chromium/ Copper/Manganese/ Seleni/Zn 0.5 ml/ Insulin Human Regular 25 unit/ Total Parenteral Nutrition/Amino Acids/Dextrose/ Fat Emulsion Intravenous 1,400 ml @ 58.333 mls/ hr TPN CONT IV Last administered on 07/24/19at 21:20; Start 07/24/19 at 22:00; Stop 07/25/19 at 21:59; Status DC Sodium Chloride 1,000 ml @ 1,000 mls/hr Q1H PRN IV hypotension; Start 07/24/19 at 12:23; Stop 07/24/19 at 18:22; Status DC Albumin Human 200 ml @ 200 mls/hr 1X ONCE IV Last administered on 07/24/19at 13:34; Start 07/24/19 at 12:30; Stop 07/24/19 at 13:29; Status DC Diphenhydramine HCl (Benadryl) 25 mg 1X PRN PRN IV ITCHING; Start 07/24/19 at 12:30; Stop 07/25/19 at 12:29; Status DC Diphenhydramine HCl (Benadryl) 25 mg 1X PRN PRN IV ITCHING; Start 07/24/19 at 12:30; Stop 07/25/19 at 12:29; Status DC Info (PHARMACY MONITORING -- do not chart) 1 each PRN DAILY PRN MC SEE COMMENTS; Start 07/24/19 at 12:30; Status Cancel Bupivacaine HCl/ Epinephrine Bitart (Sensorcain-Epi 0.5%-1:[id number] Mpf) 30 ml STK-MED ONCE .ROUTE Last administered on 07/25/19at 11:44; Start 07/25/19 at 11: 00; Stop 07/25/19 at 11:01; Status DC Cellulose (Surgicel Fibrillar 1x2) 1 each STK-MED ONCE .ROUTE ; Start 07/25/19 at 11:00; Stop 07/25/19 at 11:01; Status DC Sodium Chloride 90 meq/Potassium Chloride 15 meq/ Potassium Phosphate 10 mmol/ Magnesium Sulfate 12 meq/Calcium Gluconate 15 meq/ Multivitamins 10 ml/Chromium/ Copper/Manganese/ Seleni/Zn 0.5 ml/ Insulin Human Regular 25 unit/ Total Parenteral Nutrition/Amino Acids/Dextrose/ Fat Emulsion Intravenous 1,400 ml @ 58.333 mls/ hr TPN CONT IV Last administered on 07/25/19at 22:24; Start 07/25/19 at 22:00; Stop 07/26/19 at 21:59; Status DC Propofol 20 ml @ As Directed STK-MED ONCE IV ; Start 07/25/19 at 11:07; Stop 07/25/19 at 11:07; Status DC Cellulose (Surgicel Hemostat 4x8) 1 each STK-MED ONCE .ROUTE Last administered on 07/25/19at 11:44; Start 07/25/19 at 11:55; Stop 07/25/19 at 11:56; Status DC Sevoflurane (Ultane) 60 ml STK-MED ONCE IH ; Start 07/25/19 at 12:46; Stop 07/25/19 at 12:46; Status DC Sodium Chloride 1,000 ml @ 1,000 mls/hr Q1H PRN IV hypotension; Start 07/25/19 at 13:51; Stop 07/25/19 at 19:50; Status DC Albumin Human 200 ml @ 200 mls/hr 1X PRN PRN IV Hypotension Last administered on 07/25/19at 14:51; Start 07/25/19 at 14:00; Stop 07/25/19 at 19:59; Status DC Diphenhydramine HCl (Benadryl) 25 mg 1X PRN PRN IV ITCHING; Start 07/25/19 at 14:00; Stop 07/26/19 at 13:59; Status DC Diphenhydramine HCl (Benadryl) 25 mg 1X PRN PRN IV ITCHING; Start 07/25/19 at 14:00; Stop 07/26/19 at 13:59; Status DC Sodium Chloride 1,000 ml @ 400 mls/hr Q2H30M PRN IV PATENCY; Start 07/25/19 at 13:51; Stop 07/26/19 at 01:50; Status DC Info (PHARMACY MONITORING -- do not chart) 1 each PRN DAILY PRN MC SEE COMMENTS; Start 07/25/19 at 14:00; Stop 07/28/19 at 08:16; Status DC Heparin Sodium (Porcine) (Hep Lock Adult) 500 unit STK-MED ONCE IVP ; Start 07/26/19 at 09:29; Stop 07/26/19 at 09:30; Status DC Sodium Chloride 1,000 ml @ 1,000 mls/hr Q1H PRN IV hypotension; Start 07/26/19 at 10:43; Stop 07/26/19 at 16:42; Status DC Sodium Chloride 1,000 ml @ 400 mls/hr Q2H30M PRN IV PATENCY; Start 07/26/19 at 10:43; Stop 07/26/19 at 22:42; Status DC Info (PHARMACY MONITORING -- do not chart) 1 each PRN DAILY PRN MC SEE COMMENTS; Start 07/26/19 at 10:45; Status UNV Info (PHARMACY MONITORING -- do not chart) 1 each PRN DAILY PRN MC SEE COM MENTS; Start 07/26/19 at 10:45; Status UNV Sodium Chloride 90 meq/Potassium Chloride 15 meq/ Magnesium Sulfate 12 meq/Calcium Gluconate 15 meq/ Multivitamins 10 ml/Chromium/ Copper/Manganese/ Seleni/Zn 0.5 ml/ Insulin Human Regular 25 unit/ Total Parenteral Nutrition/Amino Acids/Dextrose/ Fat Emulsion Intravenous 1,400 ml @ 58.333 mls/ hr TPN CONT IV Last administered on 07/26/19at 22:13; Start 07/26/19 at 22:00; Stop 07/27/19 at 21:59; Status DC Sodium Chloride 1,000 ml @ 1,000 mls/hr Q1H PRN IV hypotension; Start 07/27/19 at 07:50; Stop 07/27/19 at 13:49; Status DC Albumin Human 200 ml @ 200 mls/hr 1X ONCE IV ; Start 07/27/19 at 08:00; Stop 07/27/19 at 08:53; Status DC Diphenhydramine HCl (Benadryl) 25 mg 1X PRN PRN IV ITCHING; Start 07/27/19 at 08:00; Stop 07/28/19 at 07:59; Status DC Diphenhydramine HCl (Benadryl) 25 mg 1X PRN PRN IV ITCHING; Start 07/27/19 at 08:00; Stop 07/28/19 at 07:59; Status DC Info (PHARMACY MONITORING -- do not chart) 1 each PRN DAILY PRN MC SEE COMMENTS; Start 07/27/19 at 08:00; Stop 07/28/19 at 08:16; Status DC Albumin Human 50 ml @ 50 mls/hr 1X ONCE IV ; Start 07/27/19 at 08:53; Stop 07/27/19 at 08:56; Status DC Albumin Human 200 ml @ 50 mls/hr PRN 1X PRN IV HYPOTENSION Last administered on 08/02/19at 11:54; Start 07/27/19 at 09:00; Stop 09/08/19 at 11:14; Status DC Meropenem 500 mg/ Sodium Chloride 50 ml @ 100 mls/hr Q12H IV Last administered on 08/16/19at 10:45; Start 07/27/19 at 10:00; Stop 08/16/19 at 12:37; Status DC Sodium Chloride 90 meq/Magnesium Sulfate 12 meq/ Calcium Gluconate 15 meq/ Multivitamins 10 ml/Chromium/ Copper/Manganese/ Seleni/Zn 0.5 ml/ Insulin Human Regular 25 unit/ Total Parenteral Nutrition/Amino Acids/Dextrose/ Fat Emulsion Intravenous 1,400 ml @ 58.333 mls/ hr TPN CONT IV Last administered on 07/26at 21:41; Start 07/27/19 at 22:00; Stop 07/28/19 at 21:59; Status DC Sodium Chloride 1,000 ml @ 1,000 mls/hr Q1H PRN IV hypotension; Start 07/28/19 at 07:58; Stop 07/28/19 at 13:57; Status DC Albumin Human 200 ml @ 200 mls/hr 1X PRN PRN IV Hypotension Last administered on 07/28/19at 09:30; Start 07/28/19 at 08:00; Stop 07/28/19 at 13:59; Status DC Sodium Chloride 1,000 ml @ 400 mls/hr Q2H30M PRN IV PATENCY; Start 07/28/19 at 07:58; Stop 07/28/19 at 19:57; Status DC Info (PHARMACY MONITORING -- do not chart) 1 each PRN DAILY PRN MC SEE COMMENTS; Start 07/28/19 at 08:00; Status Cancel Info (PHARMACY MONITORING -- do not chart) 1 each PRN DAILY PRN MC SEE COMMENTS; Start 07/28/19 at 08:15; Status UNV Sodium Chloride 90 meq/Potassium Phosphate 5 mmol/ Magnesium Sulfate 12 meq/Calcium Gluconate 15 meq/ Multivitamins 10 ml/Chromium/ Copper/Manganese/ Seleni/Zn 0.5 ml/ Insulin Human Regular 30 unit/ Total Parenteral Nutrition/Amino Acids/Dextrose/ Fat Emulsion Intravenous 1,400 ml @ 58.333 mls/ hr TPN CONT IV Last administered on 07/28/19at 22:08; Start 07/28/19 at 22:00; Stop 07/29/19 at 21:59; Status DC Linezolid/Dextrose 300 ml @ 300 mls/hr Q12HR IV Last administered on 08/08/19at 20:40; Start 07/29/19 at 11:00; Stop 08/09/19 at 08:10; Status DC Sodium Chloride 90 meq/Potassium Phosphate 15 mmol/ Magnesium Sulfate 12 meq/Calcium Gluconate 15 meq/ Multivitamins 10 ml/Chromium/ Copper/Manganese/ Seleni/Zn 0.5 ml/ Insulin Human Regular 30 unit/ Total Parenteral Nutrition/Amino Acids/Dextrose/ Fat Emulsion Intravenous 1,400 ml @ 58.333 mls/ hr TPN CONT IV Last administered on 07/29/19at 21:49; Start 07/29/19 at 22:00; Stop 07/30/19 at 21:59; Status DC Sodium Chloride 90 meq/Potassium Phosphate 15 mmol/ Magnesium Sulfate 12 meq/Calcium Gluconate 15 meq/ Multivitamins 10 ml/Chromium/ Copper/Manganese/ Seleni/Zn 0.5 ml/ Insulin Human Regular 40 unit/ Total Parenteral Nutrition/Amino Acids/Dextrose/ Fat Emulsion Intravenous 1,400 ml @ 58.333 mls/ hr TPN CONT IV Last administered on 07/30/19at 21:21; Start 07/30/19 at 22:00; Stop 07/31/19 at 21:59; Status DC Sodium Chloride 1,000 ml @ 1,000 mls/hr Q1H PRN IV hypotension; Start 07/30/19 at 13:26; Stop 07/30/19 at 19:25; Status DC Albumin Human 200 ml @ 200 mls/hr 1X PRN PRN IV Hypotension Last administered on 07/30/19at 15:00; Start 07/30/19 at 13:30; Stop 07/30/19 at 19:29; Status DC Sodium Chloride (Normal Saline Flush) 10 ml 1X PRN PRN IV AP catheter pack; Start 07/30/19 at 13:30; Stop 07/31/19 at 13:29; Status DC Sodium Chloride (Normal Saline Flush) 10 ml 1X PRN PRN IV SEROLOGIST catheter pack; Start 07/30/19 at 13:30; Stop 07/31/19 at 13:29; Status DC Sodium Chloride 1,000 ml @ 400 mls/hr Q2H30M PRN IV PATENCY; Start 07/30/19 at 13:26; Stop 07/31/19 at 01:25; Status DC Info (PHARMACY MONITORING -- do not chart) 1 each PRN DAILY PRN MC SEE COMMENTS; Start 07/30/19 at 13:30; Stop 07/30/19 at 13:33; Status DC Info (PHARMACY MONITORING -- do not chart) 1 each PRN DAILY PRN MC SEE COMMENTS; Start 07/30/19 at 13:30; Stop 07/30/19 at 13:34; Status DC Sodium Chloride 90 meq/Potassium Phosphate 19 mmol/ Magnesium Sulfate 12 meq/Calcium Gluconate 15 meq/ Multivitamins 10 ml/Chromium/ Copper/Manganese/ Seleni/Zn 0.5 ml/ Insulin Human Regular 40 unit/ Total Parenteral Nutrition/Amino Acids/Dextrose/ Fat Emulsion Intravenous 1,400 ml @ 58.333 mls/ hr TPN CONT IV Last administered on 07/31/19at 21:54; Start 07/31/19 at 22:00; Stop 08/01/19 at 21:59; Status DC Sodium Chloride 1,000 ml @ 1,000 mls/hr Q1H PRN IV hypotension; Start 08/01/19 at 09:35; Stop 08/01/19 at 15:34; Status DC Albumin Human 200 ml @ 200 mls/hr 1X PRN PRN IV Hypotension; Start 08/01/19 at 09:45; Stop 08/01/19 at 15:44; Status DC Diphenhydramine HCl (Benadryl) 25 mg 1X PRN PRN IV ITCHING; Start 08/01/19 at 09:45; Stop 08/02/19 at 09:44; Status DC Diphenhydramine HCl (Benadryl) 25 mg 1X PRN PRN IV ITCHING; Start 08/01/19 at 09:45; Stop 08/02/19 at 09:44; Status DC Sodium Chloride 1,000 ml @ 400 mls/hr Q2H30M PRN IV PATENCY; Start 08/01/19 at 09:35; Stop 08/01/19 at 21:34; Status DC Info (PHARMACY MONITORING -- do not chart) 1 each PRN DAILY PRN MC SEE COMMENTS; Start 08/01/19 at 09:45; Status Cancel Sodium Chloride 100 meq/Potassium Phosphate 19 mmol/ Magnesium Sulfate 12 meq/Calcium Gluconate 15 meq/ Multivitamins 10 ml/Chromium/ Copper/Manganese/ Seleni/Zn 0.5 ml/ Insulin Human Regular 40 unit/ Potassium Chloride 20 meq/ Total Parenteral Nutrition/Amino Acids/Dextrose/ Fat Emulsion Intravenous 1,400 ml @ 58.333 mls/ hr TPN CONT IV Last administered on 08/01/19at 22:02; Start 08/01/19 at 22:00; Stop 08/02/19 at 21:59; Status DC Furosemide (Lasix) 40 mg 1X ONCE IVP Last administered on 08/01/19at 14:39; Start 08/01/19 at 14:30; Stop 08/01/19 at 14:31; Status DC Metronidazole 100 ml @ 100 mls/hr Q8HRS IV Last administered on 08/09/19at 06:0 4; Start 08/02/19 at 10:00; Stop 08/09/19 at 08:10; Status DC Sodium Chloride 1,000 ml @ 1,000 mls/hr Q1H PRN IV hypotension; Start 08/02/19 at 08:00; Stop 08/02/19 at 13:59; Status DC Albumin Human 200 ml @ 200 mls/hr 1X PRN PRN IV Hypotension; Start 08/02/19 at 08:00; Stop 08/02/19 at 13:59; Status DC Sodium Chloride 1,000 ml @ 400 mls/hr Q2H30M PRN IV PATENCY; Start 08/02/19 at 08:00; Stop 08/02/19 at 19:59; Status DC Info (PHARMACY MONITORING -- do not chart) 1 each PRN DAILY PRN MC SEE COMMENT S; Start 08/02/19 at 11:30; Status UNV Info (PHARMACY MONITORING -- do not chart) 1 each PRN DAILY PRN MC SEE COMMENTS; Start 08/02/19 at 11:30; Stop 08/04/19 at 12:13; Status DC Sodium Chloride 100 meq/Potassium Phosphate 19 mmol/ Magnesium Sulfate 12 meq/Calcium Gluconate 15 meq/ Multivitamins 10 ml/Chromium/ Copper/Manganese/ Seleni/Zn 0.5 ml/ Insulin Human Regular 40 unit/ Potassium Chloride 20 meq/ Total Parenteral Nutrition/Amino Acids/Dextrose/ Fat Emulsion Intravenous 1,400 ml @ 58.333 mls/ hr TPN CONT IV Last administered on 08/02/19at 21:52; Start 08/02/19 at 22:00; Stop 08/03/19 at 21:59; Status DC Sodium Chloride (Normal Saline Flush) 10 ml QSHIFT PRN IV AFTER MEDS AND BLOOD DRAWS; Start 08/02/19 at 15:00; Stop 08/30/19 at 11:27; Status DC Sodium Chloride (Normal Saline Flush) 10 ml PRN Q5MIN PRN IV AFTER MEDS AND BLOOD DRAWS; Start 08/02/19 at 15:00; Stop 11/19/19 at 10:12; Status DC Sodium Chloride (Normal Saline Flush) 20 ml PRN Q5MIN PRN IV AFTER MEDS AND BLOOD DRAWS; Start 08/02/19 at 15:00 Sodium Chloride 100 meq/Potassium Phosphate 19 mmol/ Magnesium Sulfate 12 meq/Calcium Gluconate 15 meq/ Multivitamins 10 ml/Chromium/ Copper/Manganese/ Seleni/Zn 0.5 ml/ Insulin Human Regular 40 unit/ Potassium Chloride 20 meq/ Total Parenteral Nutrition/Amino Acids/Dextrose/ Fat Emulsion Intravenous 1,400 ml @ 58.333 mls/ hr TPN CONT IV Last administered on 08/03/19at 21:20; Start 08/03/19 at 22:00; Stop 08/04/19 at 21:59; Status DC Lidocaine HCl (Buffered Lidocaine 1%) 3 ml STK-MED ONCE .ROUTE ; Start 08/03/19 at 13:16; Stop 08/03/19 at 13:16; Status DC Lidocaine HCl (Buffered Lidocaine 1%) 6 ml 1X ONCE INJ Last administered on 08/03/19at 13:45; Start 08/03/19 at 13:30; Stop 08/03/19 at 13:31; Status DC Albumin Human 100 ml @ 100 mls/hr 1X ONCE IV Last administered on 08/03/19at 15:41; Start 08/03/19 at 15:00; Stop 08/03/19 at 15:59; Status DC Albumin Human 50 ml @ 50 mls/hr 1X ONCE IV Last administered on 08/03/19at 15:00; Start 08/03/19 at 15:00; Stop 08/03/19 at 15:59; Status DC Info (PHARMACY MONITORING -- do not chart) 1 each PRN DAILY PRN MC SEE COMMENTS; Start 08/04/19 at 11:30; Status Cancel Info (PHARMACY MONITORING -- do not chart) 1 each PRN DAILY PRN MC SEE COMMENTS; Start 08/04/19 at 11:30; Status UNV Sodium Chloride 100 meq/Potassium Phosphate 10 mmol/ Magnesium Sulfate 12 meq/Calcium Gluconate 15 meq/ Multivitamins 10 ml/Chromium/ Copper/Manganese/ Seleni/Zn 0.5 ml/ Insulin Human Regular 35 unit/ Potassium Chloride 20 meq/ Total Parenteral Nutrition/Amino Acids/Dextrose/ Fat Emulsion Intravenous 1,400 ml @ 58.333 mls/ hr TPN CONT IV Last administered on 08/04/19at 22:10; Start 08/04/19 at 22:00; Stop 08/05/19 at 21:59; Status DC Sodium Chloride 100 meq/Potassium Phosphate 5 mmol/ Magnesium Sulfate 12 meq/Calcium Gluconate 15 meq/ Multivitamins 10 ml/Chromium/ Copper/Manganese/ Seleni/Zn 0.5 ml/ Insulin Human Regular 35 unit/ Potassium Chloride 20 meq/ Total Parenteral Nutrition/Amino Acids/Dextrose/ Fat Emulsion Intravenous 1,400 ml @ 58.333 mls/ hr TPN CONT IV Last administered on 08/05/19at 22:59; Start 08/05/19 at 22:00; Stop 08/06/19 at 21:59; Status DC Sodium Chloride 1,000 ml @ 1,000 mls/hr Q1H PRN IV hypotension; Start 08/06/19 at 08:27; Stop 08/06/19 at 14:26; Status DC Albumin Human 200 ml @ 200 mls/hr 1X PRN PRN IV Hypotension Last administered on 08/06/19at 09:18; Start 08/06/19 at 08:30; Stop 08/06/19 at 14:29; Status DC Sodium Chloride 1,000 ml @ 400 mls/hr Q2H30M PRN IV PATENCY; Start 08/06/19 at 08:27; Stop 08/06/19 at 20:26; Status DC Info (PHARMACY MONITORING -- do not chart) 1 each PRN DAILY PRN MC SEE COMMENTS; Start 08/06/19 at 08:30; Status Cancel Info (PHARMACY MONITORING -- do not chart) 1 each PRN DAILY PRN MC SEE COMMENTS; Start 08/06/19 at 08:30; Stop 08/14/19 at 13:10; Status DC Sodium Chloride 100 meq/Potassium Chloride 40 meq/ Magnesium Sulfate 15 meq/Calcium Gluconate 15 meq/ Multivitamins 10 ml/Chromium/ Copper/Manganese/ Seleni/Zn 0.5 ml/ Insulin Human Regular 35 unit/ Total Parenteral Nutrition/Amino Acids/Dextrose/ Fat Emulsion Intravenous 1,400 ml @ 58.333 mls/ hr TPN CONT IV Last administered on 08/06/19at 22:00; Start 08/06/19 at 22:00; Stop 08/07/19 at 21:59; Status DC Potassium Chloride/Water 100 ml @ 100 mls/hr 1X ONCE IV Last administered on 08/06/19at 17:28; Start 08/06/19 at 14:45; Stop 08/06/19 at 15:44; Status DC Sodium Chloride 100 meq/Potassium Chloride 40 meq/ Magnesium Sulfate 15 meq /Calcium Gluconate 15 meq/ Multivitamins 10 ml/Chromium/ Copper/Manganese/ Seleni/Zn 0.5 ml/ Insulin Human Regular 35 unit/ Total Parenteral Nutrition/Amino Acids/Dextrose/ Fat Emulsion Intravenous 1,400 ml @ 58.333 mls/ hr TPN CONT IV Last administered on 08/07/19at 22:46; Start 08/07/19 at 22:00; Stop 08/08/19 at 21:59; Status DC Sodium Chloride 100 meq/Potassium Chloride 40 meq/ Magnesium Sulfate 20 meq/Calcium Gluconate 15 meq/ Multivitamins 10 ml/Chromium/ Copper/Manganese/ Seleni/Zn 0.5 ml/ Insulin Human Regular 35 unit/ Total Parenteral Nutrition/Amino Acids/Dextrose/ Fat Emulsion Intravenous 1,400 ml @ 58.333 mls/ hr TPN CONT IV Last administered on 08/08/19at 22:31; Start 08/08/19 at 22:00; Stop 08/09/19 at 21:59; Status DC Fentanyl Citrate (Fentanyl 2ml Vial) 50 mcg PRN Q2HR PRN IVP PAIN Last administered on 08/15/19at 13:32; Start 08/08/19 at 21:00; Stop 08/16/19 at 12:53; Status DC Fentanyl Citrate (Fentanyl 2ml Vial) 25 mcg PRN Q2HR PRN IVP PAIN; Start 08/08/19 at 21:00; Stop 08/16/19 at 12:54; Status DC Enoxaparin Sodium (Lovenox 100mg Syringe) 100 mg Q12HR SQ ; Start 08/09/19 at 21:00; Status UNV Amino Acids/ Glycerin/ Electrolytes 1,000 ml @ 75 mls/hr [id number] IV ; Start 08/08/19 at 21:15; Status UNV Sodium Chloride 1,000 ml @ 1,000 mls/hr Q1H PRN IV hypotension; Start 08/09/19 at 07:56; Stop 08/09/19 at 13:55; Status DC Albumin Human 200 ml @ 200 mls/hr 1X PRN PRN IV Hypotension Last administered on 08/09/19at 08:40; Start 08/09/19 at 08:00; Stop 08/09/19 at 13:59; Status DC Sodium Chloride 1,000 ml @ 400 mls/hr Q2H30M PRN IV PATENCY; Start 08/09/19 at 07:56; Stop 08/09/19 at 19:55; Status DC Info (PHARMACY MONITORING -- do not chart) 1 each PRN DAILY PRN MC SEE COMMENTS; Start 08/09/19 at 08:00; Status UNV Info (PHARMACY MONITORING -- do not chart) 1 each PRN DAILY PRN MC SEE COMMENTS; Start 08/09/19 at 08:00; Status UNV Daptomycin 430 mg/ Sodium Chloride 50 ml @ 100 mls/hr Q24H IV Last administered on 08/09/19at 12:35; Start 08/09/19 at 09:00; Stop 08/09/19 at 12:49; Status DC Sodium Chloride 100 meq/Potassium Chloride 40 meq/ Magnesium Sulfate 20 meq/Calcium Gluconate 15 meq/ Multivitamins 10 ml/Chromium/ Copper/Manganese/ Seleni/Zn 0.5 ml/ Insulin Human Regular 35 unit/ Total Parenteral Nutrition/Amino Acids/Dextrose/ Fat Emulsion Intravenous 1,400 ml @ 58.333 mls/ hr TPN CONT IV Last administered on 08/09/19at 21:26; Start 08/09/19 at 22:00; Stop 08/10/19 at 21:59; Status DC Daptomycin 430 mg/ Sodium Chloride 50 ml @ 100 mls/hr Q48H IV ; Start 08/11/19 at 09:00; Stop 08/10/19 at 11:55; Status DC Sodium Chloride 100 meq/Potassium Chloride 40 meq/ Magnesium Sulfate 20 meq/Calcium Gluconate 15 meq/ Multivitamins 10 ml/Chromium/ Copper/Manganese/ Seleni/Zn 0.5 ml/ Insulin Human Regular 35 unit/ Total Parenteral Nutrition /Amino Acids/Dextrose/ Fat Emulsion Intravenous 1,400 ml @ 58.333 mls/ hr TPN CONT IV Last administered on 08/10/19at 22:27; Start 08/10/19 at 22:00; Stop 08/11/19 at 21:59; Status DC Daptomycin 430 mg/ Sodium Chloride 50 ml @ 100 mls/hr Q24H IV Last administered on 08/12/19at 15:07; Start 08/10/19 at 13:00; Stop 08/13/19 at 13:15; Status DC Sodium Chloride 100 meq/Potassium Chloride 40 meq/ Magnesium Sulfate 20 meq/Calcium Gluconate 10 meq/ Multivitamins 10 ml/Chromium/ Copper/Manganese/ Seleni/Zn 0.5 ml/ Insulin Human Regular 35 unit/ Total Parenteral Nutrition/Amino Acids/Dextrose/ Fat Emulsion Intravenous 1,400 ml @ 58.333 mls/ hr TPN CONT IV Last administered on 08/12/19at 00:06; Start 08/11/19 at 22:00; Stop 08/12/19 at 21:59; Status DC Alteplase, Recombinant (Cathflo For Central Catheter Clearance) 1 mg 1X ONCE INT CAT Last administered on 08/12/19at 11:44; Start 08/12/19 at 10:45; Stop 08/12/19 at 10:46; Status DC Ondansetron HCl (Zofran) 4 mg PRN Q6HRS PRN IV NAUSEA/VOMITING; Start 08/15/19 at 07:00; Stop 08/16/19 at 06:59; Status DC Fentanyl Citrate (Fentanyl 2ml Vial) 25 mcg PRN Q5MIN PRN IV MILD PAIN 1-3; Start 08/15/19 at 07:00; Stop 08/16/19 at 06:59; Status DC Fentanyl Citrate (Fentanyl 2ml Vial) 50 mcg PRN Q5MIN PRN IV MODERATE TO SEVERE PAIN Last administered on 08/15/19at 10:17; Start 08/15/19 at 07:00; Stop 08/16/19 at 06:59; Status DC Ringer's Solution 1,000 ml @ 30 mls/hr Q24H IV ; Start 08/15/19 at 07:00; Stop 08/15/19 at 18:59; Status DC Lidocaine HCl (Xylocaine-Mpf 1% 2ml Vial) 2 ml PRN 1X PRN ID PRIOR TO IV START; Start 08/15/19 at 07:00; Stop 08/16/19 at 06:59; Status DC Prochlorperazine Edisylate (Compazine) 5 mg PACU PRN PRN IV NAUSEA, MRX1; Start 08/15/19 at 07:00; Stop 08/16/19 at 06:59; Status DC Sodium Acetate 50 meq/Potassium Acetate 55 meq/ Magnesium Sulfate 20 meq/Calcium Gluconate 10 meq/ Multivitamins 10 ml/Chromium/ Copper/Manganese/ Seleni/Zn 0.5 ml/ Insulin Human Regular 35 unit/ Total Parenteral Nutrition/Amino Acids/Dextrose/ Fat Emulsion Intravenous 1,400 ml @ 58.333 mls/ hr TPN CONT IV ; Start 08/12/19 at 22:00; Stop 08/12/19 at 14:15; Status DC Sodium Acetate 50 meq/Potassium Acetate 55 meq/ Magnesium Sulfate 20 meq/Calcium Gluconate 10 meq/ Multivitamins 10 ml/Chromium/ Copper/Manganese/ Seleni/Zn 0.5 ml/ Insulin Human Regular 35 unit/ Total Parenteral Nutrition/Amino Acids/Dextrose/ Fat Emulsion Intravenous 1,800 ml @ 75 mls/hr TPN CONT IV Last administered on 08/12/19at 22:38; Start 08/12/19 at 22:00; Stop 08/13/19 at 21:59; Status DC Sodium Chloride 1,000 ml @ 1,000 mls/hr Q1H PRN IV hypotension; Start 08/12/19 at 15:31; Stop 08/12/19 at 21:30; Status DC Diphenhydramine HCl (Benadryl) 25 mg 1X PRN PRN IV ITCHING; Start 08/12/19 at 15:45; Stop 08/13/19 at 15:44; Status DC Diphenhydramine HCl (Benadryl) 25 mg 1X PRN PRN IV ITCHING; Start 08/12/19 at 15:45; Stop 08/13/19 at 15:44; Status DC Sodium Chloride 1,000 ml @ 400 mls/hr Q2H30M PRN IV PATENCY; Start 08/12/19 at 15:31; Stop 08/13/19 at 03:30; Status DC Info (PHARMACY MONITORING -- do not chart) 1 each PRN DAILY PRN MC SEE COMMENTS; Start 08/12/19 at 15:45; Stop 09/13/19 at 14:14; Status DC Sodium Acetate 50 meq/Potassium Acetate 55 meq/ Magnesium Sulfate 20 meq/Calcium Gluconate 10 meq/ Multivitamins 10 ml/Chromium/ Copper/Manganese/ Seleni/Zn 0.5 ml/ Insulin Human Regular 35 unit/ Total Parenteral Nutrition/Amino Acids/Dextrose/ Fat Emulsion Intravenous 1,800 ml @ 75 mls/hr TPN CONT IV Last administered on 08/13/19at 22:03; Start 08/13/19 at 22:00; Stop 08/14/19 at 21:59; Status DC Daptomycin 430 mg/ Sodium Chloride 50 ml @ 100 mls/hr Q24H IV Last administered on 08/18/19at 13:00; Start 08/13/19 at 13:00; Stop 08/18/19 at 20:58; Status DC Heparin Sodium (Porcine) 1000 unit/Sodium Chloride 1,001 ml @ 1,001 mls/hr 1X ONCE IRR ; Start 08/15/19 at 06:00; Stop 08/15/19 at 06:59; Status DC Potassium Acetate 55 meq/Magnesium Sulfate 20 meq/ Calcium Gluconate 10 meq/ Multivitamins 10 ml/Chromium/ Copper/Manganese/ Seleni/Zn 0.5 ml/ Insulin Human Regular 35 unit/ Total Parenteral Nutrition/Amino Acids/Dextrose/ Fat Emulsion Intravenous 1,920 ml @ 80 mls/hr TPN CONT IV Last administered on 08/14/19at 22:10; Start 08/14/19 at 22:00; Stop 08/15/19 at 21:59; Status DC Dexamethasone Sodium Phosphate (Decadron) 4 mg STK-MED ONCE .ROUTE ; Start 08/15/19 at 10:56; Stop 08/15/19 at 10:57; Status DC Ondansetron HCl (Zofran) 4 mg STK-MED ONCE .ROUTE ; Start 08/15/19 at 10:56; Stop 08/15/19 at 10:57; Status DC Rocuronium [place]ort (Zemuron) 50 mg STK-MED ONCE .ROUTE ; Start 08/15/19 at 10:56; Stop 08/15/19 at 10:57; Status DC Fentanyl Citrate (Fentanyl 2ml Vial) 100 mcg STK-MED ONCE .ROUTE ; Start 08/15/19 at 10:56; Stop 08/15/19 at 10:57; Status DC Bupivacaine HCl/ Epinephrine Bitart (Sensorcain-Epi 0.5%-1:[id number] Mpf) 30 ml STK-MED ONCE .ROUTE Last administered on 08/15/19at 12:01; Start 08/15/19 at 10:58; Stop 08/15/19 at 10:58; Status DC Cellulose (Surgicel Hemostat 2x14) 1 each STK-MED ONCE .ROUTE ; Start 08/15/19 at 10:58; Stop 08/15/19 at 10:59; Status DC Iohexol (Omnipaque 300 Mg/ml) 50 ml STK-MED ONCE .ROUTE ; Start 08/15/19 at 10:58; Stop 08/15/19 at 10:59; Status DC Cellulose (Surgicel Hemostat 4x8) 1 each STK-MED ONCE .ROUTE ; Start 08/15/19 at 10:58; Stop 08/15/19 at 10:59; Status DC Bisacodyl (Dulcolax Supp) 10 mg STK-MED ONCE .ROUTE ; Start 08/15/19 at 10:59; Stop 08/15/19 at 10:59; Status DC Heparin Sodium (Porcine) 1000 unit/Sodium Chloride 1,001 ml @ 1,001 mls/hr 1X ONCE IRR ; Start 08/15/19 at 12:00; Stop 08/15/19 at 12:59; Status DC Propofol 20 ml @ As Directed STK-MED ONCE IV ; Start 08/15/19 at 11:05; Stop 08/15/19 at 11:05; Status DC Sevoflurane (Ultane) 90 ml STK-MED ONCE IH ; Start 08/15/19 at 11:05; Stop 08/15/19 at 11:05; Status DC Sevoflurane (Ultane) 60 ml STK-MED ONCE IH ; Start 08/15/19 at 12:26; Stop 08/15/19 at 12:27; Status DC Propofol 20 ml @ As Directed STK-MED ONCE IV ; Start 08/15/19 at 12:26; Stop 08/15/19 at 12:27; Status DC Phenylephrine HCl (PHENYLEPHRINE in 0.9% NACL PF) 1 mg STK-MED ONCE IV ; Start 08/15/19 at 12:34; Stop 08/15/19 at 12:34; Status DC Heparin Sodium (Porcine) (Heparin Sodium) 5,000 unit Q12HR SQ Last administered on 08/24/19at 20:57; Start 08/15/19 at 21:00; Stop 08/25/19 at 09:59; Status DC Sodium Chloride (Normal Saline Flush) 3 ml QSHIFT PRN IV AFTER MEDS AND BLOOD DRAWS; Start 08/15/19 at 13:45; Status Cancel Naloxone HCl (Narcan) 0.4 mg PRN Q2MIN PRN IV SEE INSTRUCTIONS Last administered on 09/24/19at 15:15; Start 08/15/19 at 13:45; Stop 10/19/19 at 16:00; Status DC Sodium Chloride 1,000 ml @ 25 mls/hr Q24H IV Last administered on 09/13/19at 13:37; Start 08/15/19 at 13:37; Stop 09/16/19 at 13:09; Status DC Naloxone HCl (Narcan) 0.4 mg PRN Q2MIN PRN IV SEE INSTRUCTIONS; Start 08/15/19 at 14:30; Status UNV Sodium Chloride 1,000 ml @ 25 mls/hr Q24H IV ; Start 08/15/19 at 14:30; Status UNV Hydromorphone HCl 30 ml @ 0 mls/hr CONT PRN PRN IV PER PROTOCOL Last administered on 08/20/19at 16:08; Start 08/15/19 at 14:30; Stop 08/22/19 at 08:55; Status DC Potassium Acetate 55 meq/Magnesium Sulfate 20 meq/ Calcium Gluconate 10 meq/ M ultivitamins 10 ml/Chromium/ Copper/Manganese/ Seleni/Zn 0.5 ml/ Insulin Human Regular 35 unit/ Total Parenteral Nutrition/Amino Acids/Dextrose/ Fat Emulsion Intravenous 1,920 ml @ 80 mls/hr TPN CONT IV Last administered on 08/15/19at 22:01; Start 08/15/19 at 22:00; Stop 08/16/19 at 21:59; Status DC Bumetanide (Bumex) 2 mg [id number] IV Last administered on 08/19/19at 13:50; Start at 14:00; Stop 08/20/19 at 14:10; Status DC Meropenem 1 gm/ Sodium Chloride 100 ml @ 200 mls/hr Q8HRS IV Last administered on 09/09/19at 05:53; Start 08/16/19 at 14:00; Stop 09/09/19 at 09:31; Status DC Potassium Acetate 55 meq/Magnesium Sulfate 20 meq/ Calcium Gluconate 10 meq/ Multivitamins 10 ml/Chromium/ Copper/Manganese/ Seleni/Zn 0.5 ml/ Insulin Human Regular 35 unit/ Total Parenteral Nutrition/Amino Acids/Dextrose/ Fat Emulsion Intravenous 1,920 ml @ 80 mls/hr TPN CONT IV Last administered on 08/16/19at 22:02; Start 08/16/19 at 22:00; Stop 08/17/19 at 21:59; Status DC Hydromorphone HCl (Dilaudid Standard SLIDING JOINT MAKER) 12 mg STK-MED ONCE IV ; Start 08/15/19 at 14:35; Stop 08/16/19 at 13:53; Status DC Artificial Tears (Artificial Tears) 1 drop PRN Q15MIN PRN OU DRY EYE Last administered on 10/11/19at 21:17; Start 08/17/19 at 05:30 Hydromorphone HCl (Dilaudid Standard SLIDING JOINT MAKER) 12 mg STK-MED ONCE IV ; Start 08/16/19 at 12:05; Stop 08/17/19 at 09:15; Status DC Potassium Acetate 65 meq/Magnesium Sulfate 20 meq/ Calcium Gluconate 10 meq/ Multivitamins 10 ml/Chromium/ Copper/Manganese/ Seleni/Zn 0.5 ml/ Insulin Human Regular 30 unit/ Total Parenteral Nutrition/Amino Acids/Dextrose/ Fat Emulsion Intravenous 1,920 ml @ 80 mls/hr TPN CONT IV Last administered on 08/17/19at 22:22; Start 08/17/19 at 22:00; Stop 08/18/19 at 21:59; Status DC Cyclobenzaprine HCl (Flexeril) 10 mg PRN Q6HRS PRN PO MUSCLE SPASMS Last administered on 11/26/19at 20:50; Start 08/18/19 at 10:45 Potassium Acetate 55 meq/Magnesium Sulfate 20 meq/ Calcium Gluconate 10 meq/ Multivitamins 10 ml/Chromium/ Copper/Manganese/ Seleni/Zn 0.5 ml/ Insulin Human Regular 30 unit/ Total Parenteral Nutrition/Amino Acids/Dextrose/ Fat Emulsion Intravenous 1,920 ml @ 80 mls/hr TPN CONT IV Last administered on 08/19/19at 01:00; Start 08/18/19 at 22:00; Stop 08/19/19 at 21:59; Status DC Magnesium Sulfate 50 ml @ 25 mls/hr 1X ONCE IV Last administered on 08/18/19at 17:18; Start 08/18/19 at 12:45; Stop 08/18/19 at 14:44; Status DC Potassium Chloride/Water 100 ml @ 100 mls/hr 1X ONCE IV Last administered on 08/19/19at 11:27; Start 08/19/19 at 12:00; Stop 08/19/19 at 12:59; Status DC Hydromorphone HCl (Dilaudid Standard SLIDING JOINT MAKER) 12 mg STK-MED ONCE IV ; Start 08/17/19 at 10:50; Stop 08/19/19 at 11:02; Status DC Hydromorphone HCl (Dilaudid Standard SLIDING JOINT MAKER) 12 mg STK-MED ONCE IV ; Start 08/18/19 at 13:47; Stop 08/19/19 at 11:03; Status DC Potassium Acetate 30 meq/Magnesium Sulfate 20 meq/ Calcium Gluconate 10 meq/ Multivitamins 10 ml/Chromium/ Copper/Manganese/ Seleni/Zn 0.5 ml/ Insulin Human Regular 30 unit/ Potassium Chloride 30 meq/ Total Parenteral Nutrition/Amino Acids/Dextrose/ Fat Emulsion Intravenous 1,920 ml @ 80 mls/hr TPN CONT IV Last administered on 08/19/19at 22:34; Start 08/19/19 at 22:00; Stop 08/20/19 at 21:59; Status DC Potassium Chloride/Water 100 ml @ 100 mls/hr Q1H IV Last administered on 08/20/19at 13:05; Start 08/20/19 at 07:00; Stop 08/20/19 at 10:59; Status DC Magnesium Sulfate 50 ml @ 25 mls/hr 1X ONCE IV Last administered on 08/20/19at 10:34; Start 08/20/19 at 10:30; Stop 08/20/19 at 12:29; Status DC Potassium Chloride 75 meq/ Magnesium Sulfate 20 meq/Calcium Gluconate 10 meq/ Multivitamins 10 ml/Chromium/ Copper/Manganese/ Seleni/Zn 0.5 ml/ Insulin Human Regular 30 unit/ Total Parenteral Nutrition/Amino Acids/Dextrose/ Fat Emulsion Intravenous 1,920 ml @ 80 mls/hr TPN CONT IV Last administered on 08/20/19at 21:51; Start 08/20/19 at 22:00; Stop 08/21/19 at 22:00; Status DC Potassium Chloride 75 meq/ Magnesium Sulfate 20 meq/Calcium Gluconate 10 meq/ Multivitamins 10 ml/Chromium/ Copper/Manganese/ Seleni/Zn 0.5 ml/ Insulin Human Regular 25 unit/ Total Parenteral Nutrition/Amino Acids/Dextrose/ Fat Emulsion Intravenous 1,920 ml @ 80 mls/hr TPN CONT IV Last administered on 08/21/19at 22:04; Start 08/21/19 at 22:00; Stop 08/22/19 at 21:59; Status DC Hydromorphone HCl (Dilaudid) 0.4 mg PRN Q4HRS PRN IVP PAIN Last administered on 08/22/19at 10:57; Start 08/22/19 at 09:00; Stop 08/22/19 at 18:59; Status DC Micafungin Sodium 100 mg/Dextrose 100 ml @ 100 mls/hr Q24H IV Last administered on 09/13/19at 12:17; Start 08/22/19 at 11:00; Stop 09/14/19 at 09:59; Status DC Daptomycin 485 mg/ Sodium Chloride 50 ml @ 100 mls/hr Q24H IV Last administered on 08/29/19at 13:10; Start 08/22/19 at 11:00; Stop 08/30/19 at 07:44; Status DC Potassium Chloride 75 meq/ Magnesium Sulfate 15 meq/Calcium Gluconate 8 meq/ Multivitamins 10 ml/Chromium/ Copper/Manganese/ Seleni/Zn 0.5 ml/ Insulin Human Regular 25 unit/ Total Parenteral Nutrition/Amino Acids/Dextrose/ Fat Emulsion Intravenous 1,920 ml @ 80 mls/hr TPN CONT IV Last administered on 08/22/19at 23:08; Start 08/22/19 at 22:00; Stop 08/23/19 at 21:59; Status DC Haloperidol Lactate (Haldol Inj) 3 mg 1X ONCE IVP Last administered on 08/22/19at 14:37; Start 08/22/19 at 14:30; Stop 08/22/19 at 14:31; Status DC Hydromorphone HCl (Dilaudid) 1 mg PRN Q4HRS PRN IVP PAIN Last administered on 09/05/19at 06:25; Start 08/22/19 at 19:00; Stop 09/05/19 at 17:10; Status DC Potassium Chloride 75 meq/ Magnesium Sulfate 15 meq/Calcium Gluconate 8 meq/ Multivitamins 10 ml/Chromium/ Copper/Manganese/ Seleni/Zn 0.5 ml/ Insulin Human Regular 20 unit/ Total Parenteral Nutrition/Amino Acids/Dextrose/ Fat Emulsion Intravenous 1,920 ml @ 80 mls/hr TPN CONT IV Last administered on 08/23/19at 22:10; Start 08/23/19 at 22:00; Stop 08/24/19 at 21:59; Status DC Lidocaine HCl (Buffered Lidocaine 1%) 3 ml STK-MED ONCE .ROUTE ; Start 08/24/19 at 11:31; Stop 08/24/19 at 11:31; Status DC Lidocaine HCl (Buffered Lidocaine 1%) 3 ml STK-MED ONCE .ROUTE ; Start 08/24/19 at 12:28; Stop 08/24/19 at 12:29; Status DC Lidocaine HCl (Buffered Lidocaine 1%) 6 ml 1X ONCE INJ Last administered on 08/24/19at 12:53; Start 08/24/19 at 12:45; Stop 08/24/19 at 12:46; Status DC Potassium Chloride 75 meq/ Magnesium Sulfate 15 meq/Calcium Gluconate 8 meq/ Multivitamins 10 ml/Chromium/ Copper/Manganese/ Seleni/Zn 0.5 ml/ Insulin Human Regular 20 unit/ Total Parenteral Nutrition/Amino Acids/Dextrose/ Fat Emulsion Intravenous 1,920 ml @ 80 mls/hr TPN CONT IV Last administered on 08/24/19at 22:00; Start 08/24/19 at 22:00; Stop 08/25/19 at 21:59; Status DC Potassium Chloride 75 meq/ Magnesium Sulfate 15 meq/Calcium Gluconate 8 meq/ Mu ltivitamins 10 ml/Chromium/ Copper/Manganese/ Seleni/Zn 0.5 ml/ Insulin Human Regular 15 unit/ Total Parenteral Nutrition/Amino Acids/Dextrose/ Fat Emulsion Intravenous 1,920 ml @ 80 mls/hr TPN CONT IV Last administered on 08/25/19at 22:28; Start 08/25/19 at 22:00; Stop 08/26/19 at 21:59; Status DC Vecuronium [place] (Norcuron Bolus) 6 mg PRN Q6HRS PRN IV VENT ASYNCHRONY; Start 08/25/19 at 19:15; Stop 08/25/19 at 19:35; Status DC Bumetanide (Bumex) 2 mg 1X ONCE IV Last administered on 08/25/19at 22:09; Start 08/25/19 at 19:45; Stop 08/25/19 at 19:46; Status DC Lidocaine HCl (Buffered Lidocaine 1%) 3 ml STK-MED ONCE .ROUTE ; Start 08/26/19 at 07:59; Stop 08/26/19 at 07:59; Status DC Midazolam HCl (Versed) 5 mg STK-MED ONCE .ROUTE ; Start 08/26/19 at 08:36; Stop 08/26/19 at 08:36; Status DC Fentanyl Citrate (Fentanyl 5ml Vial) 250 mcg STK-MED ONCE .ROUTE ; Start 08/26/19 at 08:36; Stop 08/26/19 at 08:37; Status DC Lidocaine HCl (Buffered Lidocaine 1%) 3 ml 1X ONCE IJ Last administered on 08/26/19at 09:30; Start 08/26/19 at 09:15; Stop 08/26/19 at 09:16; Status DC Midazolam HCl (Versed) 5 mg 1X ONCE IV Last administered on 08/26/19at 09:30; Start 08/26/19 at 09:15; Stop 08/26/19 at 09:16; Status DC Fentanyl Citrate (Fentanyl 5ml Vial) 250 mcg 1X ONCE IV Last administered on 08/26/19at 09:30; Start 08/26/19 at 09:15; Stop 08/26/19 at 09:16; Status DC Bumetanide (Bumex) 2 mg DAILY IV Last administered on 09/05/19at 08:07; Start 08/26/19 at 10:00; Stop 09/05/19 at 17:15; Status DC Potassium Chloride 75 meq/ Magnesium Sulfate 15 meq/ Multivitamins 10 ml/Chromium/ Copper/Manganese/ Seleni/Zn 0.5 ml/ Insulin Human Regular 15 unit/ Total Parenteral Nutrition/Amino Acids/Dextrose/ Fat Emulsion Intravenous 1,920 ml @ 80 mls/hr TPN CONT IV Last administered on 08/26/19at 21:59; Start 08/26/19 at 22:00; Stop 08/27/19 at 21:59; Status DC Metoclopramide HCl (Reglan Vial) 10 mg PRN Q3HRS PRN IVP NAUSEA/VOMITING-3rd choice Last administered on 09/01/19at 04:25; Start 08/27/19 at 16:45 Potassium Chloride 75 meq/ Magnesium Sulfate 15 meq/ Multivitamins 10 ml/Chromium/ Copper/Manganese/ Seleni/Zn 0.5 ml/ Insulin Human Regular 15 unit/ Total Parenteral Nutrition/Amino Acids/Dextrose/ Fat Emulsion Intravenous 1,920 ml @ 80 mls/hr TPN CONT IV Last administered on 08/27/19at 22:41; Start 08/27/19 at 22:00; Stop 08/28/19 at 21:59; Status DC Magnesium Sulfate 50 ml @ 25 mls/hr 1X ONCE IV Last administered on 08/28/19at 10:44; Start 08/28/19 at 09:00; Stop 08/28/19 at 10:59; Status DC Potassium Chloride/Water 100 ml @ 100 mls/hr 1X ONCE IV Last administered on 08/28/19at 09:37; Start 08/28/19 at 09:00; Stop 08/28/19 at 09:59; Status DC Duloxetine HCl (Cymbalta) 30 mg DAILY PO Last administered on 08/29/19at 09:48; Start 08/28/19 at 14:00; Stop 08/31/19 at 10:25; Status DC Potassium Chloride 80 meq/ Magnesium Sulfate 20 meq/ Multivitamins 10 ml/Chromium/ Copper/Manganese/ Seleni/Zn 0.5 ml/ Insulin Human Regular 15 unit/ Total Parenteral Nutrition/Amino Acids/Dextrose/ Fat Emulsion Intravenous 1,920 ml @ 80 mls/hr TPN CONT IV Last administered on 08/28/19at 21:42; Start 08/28/19 at 22:00; Stop 08/29/19 at 21:59; Status DC Potassium Chloride 80 meq/ Magnesium Sulfate 20 meq/ Multivitamins 10 ml/Chromium/ Copper/Manganese/ Seleni/Zn 0.5 ml/ Insulin Human Regular 15 unit/ Total Parenteral Nutrition/Amino Acids/Dextrose/ Fat Emulsion Intravenous 1,920 ml @ 80 mls/hr TPN CONT IV Last administered on 08/29/19at 22:20; Start 08/29/19 at 22:00; Stop 08/30/19 at 21:59; Status DC Lidocaine HCl (Buffered Lidocaine 1%) 3 ml STK-MED ONCE .ROUTE ; Start 08/30/19 at 09:54; Stop 08/30/19 at 09:55; Status DC Hydromorphone HCl (Dilaudid Standard SLIDING JOINT MAKER) 12 mg STK-MED ONCE IV ; Start 08/19/19 at 15:50; Stop 08/30/19 at 11:24; Status DC Potassium Chloride 80 meq/ Magnesium Sulfate 20 meq/ Multivitamins 10 ml/Chromiu m/ Copper/Manganese/ Seleni/Zn 0.5 ml/ Insulin Human Regular 15 unit/ Total Parenteral Nutrition/Amino Acids/Dextrose/ Fat Emulsion Intravenous 1,920 ml @ 80 mls/hr TPN CONT IV Last administered on 08/30/19at 21:40; Start 08/30/19 at 22:00; Stop 08/31/19 at 21:59; Status DC Lidocaine HCl (Buffered Lidocaine 1%) 6 ml 1X ONCE INJ Last administered on 08/30/19at 14:15; Start 08/30/19 at 14:15; Stop 08/30/19 at 14:16; Status DC Potassium Chloride 80 meq/ Magnesium Sulfate 20 meq/ Multivitamins 10 ml/Chromi um/ Copper/Manganese/ Seleni/Zn 1 ml/ Insulin Human Regular 15 unit/ Total Parenteral Nutrition/Amino Acids/Dextrose/ Fat Emulsion Intravenous 1,920 ml @ 80 mls/hr TPN CONT IV Last administered on 08/31/19at 22:04; Start 08/31/19 at 22:00; Stop 09/01/19 at 21:59; Status DC Potassium Chloride/Water 100 ml @ 100 mls/hr 1X ONCE IV Last administered on 09/01/19at 11:34; Start 09/01/19 at 11:00; Stop 09/01/19 at 11:59; Status DC Potassium Chloride 90 meq/ Magnesium Sulfate 20 meq/ Multivitamins 10 ml/Chrom ium/ Copper/Manganese/ Seleni/Zn 1 ml/ Insulin Human Regular 15 unit/ Total Parenteral Nutrition/Amino Acids/Dextrose/ Fat Emulsion Intravenous 1,920 ml @ 80 mls/hr TPN CONT IV Last administered on 09/01/19at 22:57; Start 09/01/19 at 22:00; Stop 09/02/19 at 21:59; Status DC Potassium Chloride 90 meq/ Magnesium Sulfate 20 meq/ Multivitamins 10 ml/Chromium/ Copper/Manganese/ Seleni/Zn 1 ml/ Insulin Human Regular 15 unit/ Total Parenteral Nutrition/Amino Acids/Dextrose/ Fat Emulsion Intravenous 1,920 ml @ 80 mls/hr TPN CONT IV Last administered on 09/02/19at 22:48; Start 09/02/19 at 22:00; Stop 09/03/19 at 21:59; Status DC Potassium Chloride 90 meq/ Magnesium Sulfate 20 meq/ Multivitamins 10 ml/Chromium/ Copper/Manganese/ Seleni/Zn 1 ml/ Insulin Human Regular 15 unit/ Total Parenteral Nutrition/Amino Acids/Dextrose/ Fat Emulsion Intravenous 1,890 ml @ 78.75 mls/ hr TPN CONT IV Last administered on 09/03/19at 22:15; Start 09/03/19 at 22:00; Stop 09/04/19 at 21:59; Status DC Linezolid/Dextrose 300 ml @ 300 mls/hr Q12HR IV Last administered on 09/06/19at 21:08; Start 09/04/19 at 09:00; Stop 09/07/19 at 08:11; Status DC Daptomycin 450 mg/ Sodium Chloride 50 ml @ 100 mls/hr Q24H IV Last administered on 09/07/19at 09:25; Start 09/04/19 at 09:00; Stop 09/08/19 at 08:30; Status DC Potassium Chloride 90 meq/ Magnesium Sulfate 20 meq/ Multivitamins 10 ml/Chromium/ Copper/Manganese/ Seleni/Zn 1 ml/ Insulin Human Regular 15 unit/ Total Parenteral Nutrition/Amino Acids/Dextrose/ Fat Emulsion Intravenous 1,890 ml @ 78.75 mls/ hr TPN CONT IV Last administered on 09/04/19at 21:34; Start 09/04/19 at 22:00; Stop 09/05/19 at 21:59; Status DC Lorazepam (Ativan Inj) 2 mg STK-MED ONCE .ROUTE ; Start 09/04/19 at 14:58; Stop 09/04/19 at 14:58; Status DC Metoprolol Tartrate (Lopressor Vial) 5 mg 1X ONCE IVP Last administered on 09/04/19at 15:31; Start 09/04/19 at 15:15; Stop 09/04/19 at 15:16; Status DC Lorazepam (Ativan Inj) 2 mg 1X ONCE IVP Last administered on 09/04/19at 15:30; Start 09/04/19 at 15:15; Stop 09/04/19 at 15:16; Status DC Enoxaparin Sodium (Lovenox 40mg Syringe) 40 mg Q24H SQ Last administered on 09/23/19at 17:44; Start 09/04/19 at 17:00; Stop 09/25/19 at 06:50; Status DC Lorazepam (Ativan Inj) 1 mg PRN Q4HRS PRN IVP ANXIETY / AGITATION MILD-MOD Last administered on 09/18/19at 15:55; Start 09/04/19 at 19:15; Stop 09/20/19 at 11:45; Status DC Lorazepam (Ativan Inj) 2 mg PRN Q4HRS PRN IVP ANXIETY / AGITATION SEVERE Last administered on 09/19/19at 07:55; Start 09/04/19 at 19:15; Stop 09/20/19 at 11:45; Status DC Fentanyl Citrate (Fentanyl 2ml Vial) 50 mcg PRN Q4HRS PRN IVP SEVERE PAIN Last administered on 10/01/19at 05:15; Start 09/05/19 at 13:15; Stop 10/02/19 at 09:29; Status DC Fentanyl Citrate (Fentanyl 2ml Vial) 25 mcg PRN Q4HRS PRN IVP MODERATE PAIN Las t administered on 10/01/19at 00:27; Start 09/05/19 at 13:15; Stop 10/02/19 at 09:30; Status DC Potassium Chloride 90 meq/ Magnesium Sulfate 20 meq/ Multivitamins 10 ml/Chromium/ Copper/Manganese/ Seleni/Zn 1 ml/ Insulin Human Regular 15 unit/ Total Parenteral Nutrition/Amino Acids/Dextrose/ Fat Emulsion Intravenous 1,890 ml @ 78.75 mls/ hr TPN CONT IV Last administered on 09/05/19at 22:18; Start 09/05/19 at 22:00; Stop 09/06/19 at 21:59; Status DC Furosemide (Lasix) 40 mg 1X ONCE IVP Last administered on 09/05/19at 21:51; Start 09/05/19 at 21:45; Stop 09/05/19 at 21:48; Status DC Albumin Human 100 ml @ 100 mls/hr 1X PRN PRN IV SEE COMMENTS; Start 09/06/19 at 01:30; Stop 11/21/19 at 09:52; Status DC Furosemide (Lasix) 40 mg [id number] IVP Last administered on 09/21/19at 08:04; Start 09/06/19 at 14:00; Stop 09/21/19 at 13:07; Status DC Potassium Chloride 90 meq/ Magnesium Sulfate 20 meq/ Multivitamins 10 ml/Chromium/ Copper/Manganese/ Seleni/Zn 1 ml/ Insulin Human Regular 15 unit/ Total Parenteral Nutrition/Amino Acids/Dextrose/ Fat Emulsion Intravenous 1,800 ml @ 75 mls/hr TPN CONT IV Last administered on 09/06/19at 22:31; Start at 22:00; Stop 09/07/19 at 21:59; Status DC Potassium Chloride 90 meq/ Magnesium Sulfate 20 meq/ Multivitamins 10 ml/Inventory Controller mium/ Copper/Manganese/ Seleni/Zn 1 ml/ Insulin Human Regular 15 unit/ Total Parenteral Nutrition/Amino Acids/Dextrose/ Fat Emulsion Intravenous 1,800 ml @ 75 mls/hr TPN CONT IV Last administered on 09/07/19at 22:28; Start 09/07/19 at 22:00; Stop 09/08/19 at 21:59; Status DC Potassium Chloride 110 meq/ Magnesium Sulfate 20 meq/ Multivitamins 10 ml/Chromium/ Copper/Manganese/ Seleni/Zn 1 ml/ Insulin Human Regular 15 unit/ Total Parenteral Nutrition/Amino Acids/Dextrose/ Fat Emulsion Intravenous 1,800 ml @ 75 mls/hr TPN CONT IV Last administered on 09/08/19at 22:01; Start 09/08/19 at 22:00; Stop 09/09/19 at 21:59; Status DC Saliva Substitute (Biotene Moisturizing Mouth) 2 spray PRN Q15MIN PRN PO DRY MOUTH; Start 09/08/19 at 11:00 Potassium Chloride 110 meq/ Magnesium Sulfate 20 meq/ Multivitamins 10 ml/Chromium/ Copper/Manganese/ Seleni/Zn 1 ml/ Insulin Human Regular 15 unit/ To anthony Parenteral Nutrition/Amino Acids/Dextrose/ Fat Emulsion Intravenous 1,800 ml @ 75 mls/hr TPN CONT IV Last administered on 09/09/19at 22:21; Start 09/09/19 at 22:00; Stop 09/10/19 at 21:59; Status DC Potassium Chloride 110 meq/ Magnesium Sulfate 20 meq/ Multivitamins 10 ml/Chromium/ Copper/Manganese/ Seleni/Zn 1 ml/ Insulin Human Regular 15 unit/ Total Parenteral Nutrition/Amino Acids/Dextrose/ Fat Emulsion Intravenous 1,800 ml @ 75 mls/hr TPN CONT IV Last administered on 09/10/19at 22:04; Start at 22:00; Stop 09/11/19 at 21:59; Status DC Potassium Chloride 110 meq/ Magnesium Sulfate 20 meq/ Multivitamins 10 ml/Chr omium/ Copper/Manganese/ Seleni/Zn 1 ml/ Insulin Human Regular 15 unit/ Total Parenteral Nutrition/Amino Acids/Dextrose/ Fat Emulsion Intravenous 1,800 ml @ 75 mls/hr TPN CONT IV Last administered on 09/11/19at 22:48; Start 09/11/19 at 22:00; Stop 09/12/19 at 21:59; Status DC Potassium Chloride 70 meq/ Magnesium Sulfate 20 meq/ Multivitamins 10 ml/Chromium/ Copper/Manganese/ Seleni/Zn 1 ml/ Insulin Human Regular 15 unit/ Total Parenteral Nutrition/Amino Acids/Dextrose/ Fat Emulsion Intravenous 1,800 ml @ 75 mls/hr TPN CONT IV Last administered on 09/12/19at 21:39; Start 09/12/19 at 22:00; Stop 09/13/19 at 21:59; Status DC Meropenem 500 mg/ Sodium Chloride 50 ml @ 100 mls/hr Q6HRS IV Last administered on 09/14/19at 06:02; Start 09/12/19 at 18:00; Stop 09/14/19 at 09:59; Status DC Barium Sulfate (Varibar Thin Liquid Apple) 148 gm 1X ONCE PO ; Start 09/13/19 at 11:45; Stop 09/13/19 at 11:49; Status DC Potassium Chloride 70 meq/ Magnesium Sulfate 20 meq/ Multivitamins 10 ml/Chromium/ Copper/Manganese/ Seleni/Zn 1 ml/ Insulin Human Regular 15 unit/ Total Parenteral Nutrition/Amino Acids/Dextrose/ Fat Emulsion Intravenous 1,800 ml @ 75 mls/hr TPN CONT IV Last administered on 09/13/19at 22:27; Start 09/13/19 at 22:00; Stop 09/14/19 at 21:59; Status DC Piperacillin Sod/ Tazobactam Sod 3.375 gm/Sodium Chloride 50 ml @ 100 mls/hr Q6HRS IV Last administered on 09/22/19at 06:10; Start 09/14/19 at 12:00; Stop 09/22/19 at 07:26; Status DC Potassium Chloride 70 meq/ Magnesium Sulfate 20 meq/ Multivitamins 10 ml/C hromium/ Copper/Manganese/ Seleni/Zn 1 ml/ Insulin Human Regular 15 unit/ Total Parenteral Nutrition/Amino Acids/Dextrose/ Fat Emulsion Intravenous 1,800 ml @ 75 mls/hr TPN CONT IV Last administered on 09/14/19at 22:03; Start 09/14/19 at 22:00; Stop 09/15/19 at 21:59; Status DC Potassium Chloride 70 meq/ Magnesium Sulfate 20 meq/ Multivitamins 10 ml/Chromium/ Copper/Manganese/ Seleni/Zn 1 ml/ Insulin Human Regular 15 unit/ Total Parenteral Nutrition/Amino Acids/Dextrose/ Fat Emulsion Intravenous 1,800 ml @ 75 mls/hr TPN CONT IV Last administered on 09/15/19at 22:33; Start 09/15/19 at 22:00; Stop 09/16/19 at 21:59; Status DC Potassium Chloride 70 meq/ Magnesium Sulfate 20 meq/ Multivitamins 10 ml/Chromium/ Copper/Manganese/ Seleni/Zn 1 ml/ Insulin Human Regular 15 unit/ Total Parenteral Nutrition/Amino Acids/Dextrose/ Fat Emulsion Intravenous 1,800 ml @ 75 mls/hr TPN CONT IV Last administered on 09/16/19at 23:13; Start 09/16/19 at 22:00; Stop 09/17/19 at 21:59; Status DC Potassium Chloride 80 meq/ Magnesium Sulfate 20 meq/ Multivitamins 10 ml/Chromium/ Copper/Manganese/ Seleni/Zn 1 ml/ Insulin Human Regular 15 unit/ Total Parenteral Nutrition/Amino Acids/Dextrose/ Fat Emulsion Intravenous 1,800 ml @ 75 mls/hr TPN CONT IV Last administered on 09/17/19at 22:30; Start 09/17/19 at 22:00; Stop 09/18/19 at 21:59; Status DC Potassium Chloride 80 meq/ Magnesium Sulfate 20 meq/ Multivitamins 10 ml/Chromium/ Copper/Manganese/ Seleni/Zn 1 ml/ Insulin Human Regular 15 unit/ Total Parenteral Nutrition/Amino Acids/Dextrose/ Fat Emulsion Intravenous 1,800 ml @ 75 mls/hr TPN CONT IV Last administered on 09/18/19at 21:54; Start 09/18/19 at 22:00; Stop 09/19/19 at 21:59; Status DC Potassium Chloride/Water 100 ml @ 100 mls/hr 1X ONCE IV Last administered on 09/19/19at 10:15; Start 09/19/19 at 10:00; Stop 09/19/19 at 10:59; Status DC Potassium Chloride 90 meq/ Magnesium Sulfate 20 meq/ Multivitamins 10 ml/Chromium/ Copper/Manganese/ Seleni/Zn 1 ml/ Insulin Human Regular 20 unit/ Total Parenteral Nutrition/Amino Acids/Dextrose/ Fat Emulsion Intravenous 1,800 ml @ 75 mls/hr TPN CONT IV Last administered on 09/19/19at 22:28; Start 09/19/19 at 22:00; Stop 09/20/19 at 21:59; Status DC Potassium Chloride 90 meq/ Magnesium Sulfate 20 meq/ Multivitamins 10 ml/Chromium/ Copper/Manganese/ Seleni/Zn 1 ml/ Insulin Human Regular 20 unit/ Total Parenteral Nutrition/Amino Acids/Dextrose/ Fat Emulsion Intravenous 1,800 ml @ 75 mls/hr TPN CONT IV Last administered on 09/20/19at 22:08; Start 09/20/19 at 22:00; Stop 09/21/19 at 21:59; Status DC Lorazepam (Ativan Inj) 0.25 mg PRN Q4HRS PRN IVP ANXIETY / AGITATION Last administered on 11/27/19at 23:15; Start 09/21/19 at 07:30 Potassium Chloride 90 meq/ Magnesium Sulfate 20 meq/ Multivitamins 10 ml/Chromium/ Copper/Manganese/ Seleni/Zn 1 ml/ Insulin Human Regular 20 unit/ Total Parenteral Nutrition/Amino Acids/Dextrose/ Fat Emulsion Intravenous 1,800 ml @ 75 mls/hr TPN CONT IV Last administered on 09/21/19at 23:13; Start 09/21/19 at 22:00; Stop 09/22/19 at 21:59; Status DC Furosemide (Lasix) 40 mg DAILY IVP Last administered on 09/23/19at 11:14; Start 09/21/19 at 13:30; Stop 09/25/19 at 09:12; Status DC Fluoxetine HCl (PROzac) 20 mg QHS PEG Last administered on 11/27/19at 20:07; Start 09/22/19 at 21:00 Fentanyl (Duragesic 50mcg/ Hr Patch) 1 patch Q72H TD Last administered on 09/22/19at 21:22; Start 09/22/19 at 21:00; Stop 10/01/19 at 12:00; Status DC Potassium Chloride 40 meq/ Potassium Acetate 60 meq/Magnesium Sulfate 10 meq/ Multivitamins 10 ml/Chromium/ Copper/Manganese/ Seleni/Zn 1 ml/ Insulin Human Regular 20 unit/ Total Parenteral Nutrition/Amino Acids/Dextrose/ Fat Emulsion Intravenous 1,800 ml @ 75 mls/hr TPN CONT IV Last administered on 09/23/19at 00:03; Start 09/22/19 at 22:00; Stop 09/23/19 at 21:59; Status DC Potassium Acetate 80 meq/Magnesium Sulfate 5 meq/ Multivitamins 10 ml/Chromium/ Copper/Manganese/ Seleni/Zn 1 ml/ Insulin Human Regular 20 unit/ Total Parenteral Nutrition/Amino Acids/Dextrose/ Fat Emulsion Intravenous 1,920 ml @ 80 mls/hr TPN CONT IV Last administered on 09/23/19at 21:59; Start 09/23/19 at 22:00; Stop 09/24/19 at 21:59; Status DC Potassium Acetate 60 meq/Magnesium Sulfate 5 meq/ Multivitamins 10 ml/Chromium/ Copper/Manganese/ Seleni/Zn 1 ml/ Insulin Human Regular 30 unit/ Total Parenteral Nutrition/Amino Acids/Dextrose/ Fat Emulsion Intravenous 1,920 ml @ 80 mls/hr TPN CONT IV Last administered on 09/24/19at 21:54; Start 09/24/19 at 22:00; Stop 09/25/19 at 21:59; Status DC Norepinephrine Bitartrate 8 mg/ Dextrose 258 ml @ 13.332 mls/ hr CONT PRN IV PER PROTOCOL Last administered on 10/20/19at 09:09; Start 09/25/19 at 06:30; Stop 11/21/19 at 09:45; Status DC Albumin Human 500 ml @ 125 mls/hr 1X ONCE IV Last administered on 09/25/19at 08:10; Start 09/25/19 at 08:15; Stop 09/25/19 at 12:14; Status DC Potassium Acetate 40 meq/Magnesium Sulfate 5 meq/ Multivitamins 10 ml/Chromium/ Copper/Manganese/ Seleni/Zn 1 ml/ Insulin Human Regular 30 unit/ Total Paren teral Nutrition/Amino Acids/Dextrose/ Fat Emulsion Intravenous 1,920 ml @ 80 mls/hr TPN CONT IV Last administered on 09/25/19at 22:23; Start 09/25/19 at 22:00; Stop 09/26/19 at 21:59; Status DC Meropenem 1 gm/ Sodium Chloride 100 ml @ 200 mls/hr Q8HRS IV ; Start 09/25/19 at 14:00; Status Cancel Meropenem 1 gm/ Sodium Chloride 100 ml @ 200 mls/hr Q8HRS IV Last administered on 09/25/19at 11:04; Start 09/25/19 at 10:00; Stop 09/25/19 at 13:00; Status DC Meropenem 1 gm/ Sodium Chloride 100 ml @ 200 mls/hr Q12HR IV Last administered on 10/13/19at 08:27; Start 09/25/19 at 21:00; Stop 10/13/19 at 08:56; Status DC Sodium Chloride 1,000 ml @ 1,000 mls/hr 1X ONCE IV Last administered on 09/25/19at 11:06; Start 09/25/19 at 10:45; Stop 09/25/19 at 11:44; Status DC Micafungin Sodium 100 mg/Dextrose 100 ml @ 100 mls/hr Q24H IV Last administered on 10/12/19at 12:34; Start 09/25/19 at 11:00; Stop 10/13/19 at 08:56; Status DC Daptomycin 410 mg/ Sodium Chloride 50 ml @ 100 mls/hr Q24H IV Last administered on 09/27/19at 13:33; Start 09/25/19 at 14:00; Stop 09/28/19 at 08:30; Status DC Midazolam HCl (Versed) 2 mg STK-MED ONCE .ROUTE ; Start 09/25/19 at 14:47; Stop 09/25/19 at 14:48; Status DC Fentanyl Citrate (Fentanyl 2ml Vial) 100 mcg STK-MED ONCE .ROUTE ; Start 09/25/19 at 14:47; Stop 09/25/19 at 14:48; Status DC Flumazenil (Romazicon) 0.5 mg STK-MED ONCE IV ; Start 09/25/19 at 14:48; Stop 09/25/19 at 14:48; Status DC Naloxone HCl (Narcan) 0.4 mg STK-MED ONCE .ROUTE ; Start 09/25/19 at 14:48; Stop 09/25/19 at 14:48; Status DC Lidocaine HCl (Lidocaine 1% 20ml Vial) 20 ml STK-MED ONCE .ROUTE ; Start 09/25/19 at 14:48; Stop 09/25/19 at 14:48; Status DC Midazolam HCl (Versed) 2 mg 1X ONCE IV Last administered on 09/25/19at 15:28; Start 09/25/19 at 15:00; Stop 09/25/19 at 15:01; Status DC Fentanyl Citrate (Fentanyl 2ml Vial) 100 mcg 1X ONCE IV Last administered on 09/25/19at 15:28; Start 09/25/19 at 15:00; Stop 09/25/19 at 15:01; Status DC Lidocaine HCl (Lidocaine 1% 20ml Vial) 20 ml 1X ONCE INJ Last administered on 09/25/19at 15:30; Start 09/25/19 at 15:00; Stop 09/25/19 at 15:01; Status DC Sodium Chloride 1,000 ml @ 100 mls/hr Q10H IV Last administered on 10/04/19at 07:30; Start 09/25/19 at 20:00; Stop 10/04/19 at 11:26; Status DC Sodium Bicarbonate (Sodium Bicarb Adult 8.4% Syr) 50 meq 1X ONCE IV Last administered on 09/25/19at 21:47; Start 09/25/19 at 22:00; Stop 09/25/19 at 22:01; Status DC Potassium Acetate 40 meq/Magnesium Sulfate 5 meq/ Multivitamins 10 ml/Chromium/ Copper/Manganese/ Seleni/Zn 1 ml/ Insulin Human Regular 30 unit/ Total Parenteral Nutrition/Amino Acids/Dextrose/ Fat Emulsion Intravenous 1,920 ml @ 80 mls/hr TPN CONT IV Last administered on 09/26/19at 22:28; Start 09/26/19 at 22:00; Stop 09/27/19 at 21:59; Status DC Sodium Chloride 500 ml @ 500 mls/hr 1X ONCE IV Last administered on 09/27/19at 06:39; Start 09/27/19 at 06:45; Stop 09/27/19 at 07:44; Status DC Potassium Acetate 40 meq/Magnesium Sulfate 5 meq/ Multivitamins 10 ml/Chromium/ Copper/Manganese/ Seleni/Zn 1 ml/ Insulin Human Regular 30 unit/ Total Parenteral Nutrition/Amino Acids/Dextrose/ Fat Emulsion Intravenous 1,920 ml @ 80 mls/hr TPN CONT IV Last administered on 09/27/19at 22:03; Start 09/27/19 at 22:00; Stop 09/28/19 at 21:59; Status DC Metoprolol Tartrate (Lopressor Vial) 5 mg PRN Q6HRS PRN IVP HYPERTENSION Last administered on 11/28/19at 01:47; Start 09/28/19 at 09:00 Potassium Acetate 40 meq/Magnesium Sulfate 5 meq/ Multivitamins 10 ml/Chromium/ Copper/Manganese/ Seleni/Zn 1 ml/ Insulin Human Regular 30 unit/ Total Parenteral Nutrition/Amino Acids/Dextrose/ Fat Emulsion Intravenous 1,920 ml @ 80 mls/hr TPN CONT IV Last administered on 09/28/19at 21:26; Start 09/28/19 at 22:00; Stop 09/29/19 at 21:59; Status DC Potassium Acetate 40 meq/Magnesium Sulfate 5 meq/ Multivitamins 10 ml/Chromium/ Copper/Manganese/ Seleni/Zn 1 ml/ Insulin Human Regular 30 unit/ Total Parenteral Nutrition/Amino Acids/Dextrose/ Fat Emulsion Intravenous 1,920 ml @ 80 mls/hr TPN CONT IV Last administered on 09/29/19at 23:23; Start 09/29/19 at 22:00; Stop 09/30/19 at 21:59; Status DC Potassium Acetate 40 meq/Magnesium Sulfate 5 meq/ Multivitamins 10 ml/Chromium/ Copper/Manganese/ Seleni/Zn 1 ml/ Insulin Human Regular 30 unit/ Total Parenteral Nutrition/Amino Acids/Dextrose/ Fat Emulsion Intravenous 1,920 ml @ 80 mls/hr TPN CONT IV Last administered on 09/30/19at 21:35; Start 09/30/19 at 22:00; Stop 10/01/19 at 21:59; Status DC Furosemide (Lasix) 20 mg 1X ONCE IVP Last administered on 10/01/19at 06:26; Start 10/01/19 at 06:15; Stop 10/01/19 at 06:16; Status DC Methylprednisolone Sodium Succinate (SOLU-Medrol 125MG VIAL) 125 mg 1X ONCE IV Last administered on 10/01/19at 06:26; Start 10/01/19 at 06:15; Stop 10/01/19 at 06:16; Status DC Albuterol/ Ipratropium (Duoneb) 3 ml Q4HRS NEB Last administered on 11/28/19at 08:42; Start 10/01/19 at 08:00 Fentanyl Citrate 30 ml @ 0 mls/hr CONT PRN IV SEE PROTOCOL Last administered on 10/22/19at 08:03; Start 10/01/19 at 06:00; Stop 10/22/19 at 12:42; Status DC Propofol 100 ml @ 0 mls/hr CONT PRN IV SEE PROTOCOL Last administered on 10/08/19at 23:50; Start 10/01/19 at 06:00; Stop 11/21/19 at 09:45; Status DC Fentanyl Citrate (Fentanyl 2ml Vial) 25 mcg PRN Q1HR PRN IV SEE COMMENTS Last administered on 11/19/19at 23:56; Start 10/01/19 at 06:00; Stop 11/21/19 at 09:45; Status DC Fentanyl Citrate (Fentanyl 2ml Vial) 50 mcg PRN Q1HR PRN IV SEE COMMENTS Last administered on 11/21/19at 09:39; Start 10/01/19 at 06:00; Stop 11/21/19 at 09:45; Status DC Chlorhexidine Gluconate (Peridex) 15 ml BID MM ; Start 10/01/19 at 09:00; Stop 10/01/19 at 07:58; Status DC Potassium Acetate 40 meq/Magnesium Sulfate 5 meq/ Multivitamins 10 ml/Chromium/ Copper/Manganese/ Seleni/Zn 1 ml/ Insulin Human Regular 30 unit/ Total Parenteral Nutrition/Amino Acids/Dextrose/ Fat Emulsion Intravenous 1,920 ml @ 80 mls/hr TPN CONT IV Last administered on 10/01/19at 21:19; Start 10/01/19 at 22:00; Stop 10/02/19 at 21:59; Status DC Acetylcysteine (Mucomyst 20% Resp Treatment) 600 mg BID NEB Last administered on 10/07/19at 09:33; Start 10/01/19 at 21:00; Stop 10/07/19 at 10:39; Status DC Magnesium Sulfate 100 ml @ 25 mls/hr 1X ONCE IV Last administered on 10/01/19at 15:48; Start 10/01/19 at 15:45; Stop 10/01/19 at 19:44; Status DC Potassium Acetate 40 meq/Magnesium Sulfate 5 meq/ Multivitamins 10 ml/Chromium/ Copper/Manganese/ Seleni/Zn 1 ml/ Insulin Human Regular 30 unit/ Total Parenteral Nutrition/Amino Acids/Dextrose/ Fat Emulsion Intravenous 1,920 ml @ 80 mls/hr TPN CONT IV Last administered on 10/02/19at 21:35; Start 10/02/19 at 22:00; Stop 10/03/19 at 21:59; Status DC Potassium Chloride/Water 100 ml @ 100 mls/hr Q1H IV Last administered on 10/03/19at 08:31; Start 10/03/19 at 07:00; Stop 10/03/19 at 08:59; Status DC Potassium Acetate 40 meq/Magnesium Sulfate 5 meq/ Multivitamins 10 ml/Chromium/ Copper/Manganese/ Seleni/Zn 1 ml/ Insulin Human Regular 30 unit/ Total Parenteral Nutrition/Amino Acids/Dextrose/ Fat Emulsion Intravenous 1,920 ml @ 80 mls/hr TPN CONT IV Last administered on 10/03/19at 21:54; Start 10/03/19 at 22:00; Stop 10/04/19 at 19:34; Status DC Lidocaine HCl (Buffered Lidocaine 1%) 3 ml STK-MED ONCE .ROUTE ; Start 10/03/19 at 12:14; Stop 10/03/19 at 12:14; Status DC Lidocaine HCl (Buffered Lidocaine 1%) 3 ml 1X ONCE IJ Last administered on 10/03/19at 13:11; Start 10/03/19 at 13:00; Stop 10/03/19 at 13:01; Status DC Magnesium Sulfate 50 ml @ 25 mls/hr 1X ONCE IV ; Start 10/04/19 at 08:15; Stop 10/04/19 at 10:14; Status DC Potassium Acetate 40 meq/Magnesium Sulfate 10 meq/ Multivitamins 10 ml/Chromium/ Copper/Manganese/ Seleni/Zn 1 ml/ Insulin Human Regular 20 unit/ Total Parenteral Nutrition/Amino Acids/Dextrose/ Fat Emulsion Intravenous 1,920 ml @ 80 mls/hr TPN CONT IV Last administered on 10/04/19at 21:32; Start 10/04/19 at 22:00; Stop 10/05/19 at 21:59; Status DC Potassium Chloride/Water 100 ml @ 100 mls/hr Q1H IV Last administered on 10/05/19at 09:12; Start 10/05/19 at 08:00; Stop 10/05/19 at 09:59; Status DC Alteplase, Recombinant (Cathflo For Central Catheter Clearance) 4 mg 1X ONCE INT CAT ; Start 10/05/19 at 09:15; Stop 10/05/19 at 09:16; Status UNV Alteplase, Recombinant (Cathflo For Central Catheter Clearance) 4 mg 1X ONCE INT CAT ; Start 10/05/19 at 09:15; Stop 10/05/19 at 09:16; Status UNV Alteplase, Recombinant (Cathflo For Central Catheter Clearance) 4 mg 1X ONCE INT CAT ; Start 10/05/19 at 09:15; Stop 10/05/19 at 09:16; Status UNV Alteplase, Recombinant 4 mg/ Sodium Chloride 20 ml @ 20 mls/hr 1X ONCE IV Last administered on 10/05/19at 10:10; Start 10/05/19 at 10:00; Stop 10/05/19 at 10:59; Status DC Alteplase, Recombinant 4 mg/ Sodium Chloride 20 ml @ 20 mls/hr 1X ONCE IV Last administered on 10/05/19at 10:09; Start 10/05/19 at 10:00; Stop 10/05/19 at 10:59; Status DC Alteplase, Recombinant 4 mg/ Sodium Chloride 20 ml @ 20 mls/hr 1X ONCE IV Last administered on 10/05/19at 10:09; Start 10/05/19 at 10:00; Stop 10/05/19 at 10:59; Status DC Potassium Acetate 60 meq/Magnesium Sulfate 10 meq/ Multivitamins 10 ml/Chromium/ Copper/Manganese/ Seleni/Zn 1 ml/ Insulin Human Regular 20 unit/ Total Parenteral Nutrition/Amino Acids/Dextrose/ Fat Emulsion Intravenous 1,920 ml @ 80 mls/hr TPN CONT IV Last administered on 10/05/19at 21:55; Start 10/05/19 at 22:00; Stop 10/06/19 at 21:59; Status DC Albumin Human 500 ml @ 125 mls/hr 1X ONCE IV Last administered on 10/06/19at 12:01; Start 10/06/19 at 11:15; Stop 10/06/19 at 15:14; Status DC Sodium Chloride 500 ml @ 500 mls/hr 1X ONCE IV Last administered on 10/06/19at 13:50; Start 10/06/19 at 11:15; Stop 10/06/19 at 12:14; Status DC Potassium Acetate 60 meq/Magnesium Sulfate 14 meq/ Multivitamins 10 ml/Chromium/ Copper/Manganese/ Seleni/Zn 1 ml/ Insulin Human Regular 20 unit/ Total Parenteral Nutrition/Amino Acids/Dextrose/ Fat Emulsion Intravenous 1,920 ml @ 80 mls/hr TPN CONT IV Last administered on 10/06/19at 22:26; Start 10/06/19 at 22:00; Stop 10/07/19 at 21:59; Status DC Ciprofloxacin/ Dextrose 200 ml @ 200 mls/hr Q12HR IV Last administered on 10/13/19at 08:27; Start 10/06/19 at 21:00; Stop 10/13/19 at 08:56; Status DC Albumin Human 250 ml @ 62.5 mls/hr 1X ONCE IV Last administered on 10/07/19at 11:09; Start 10/07/19 at 11:00; Stop 10/07/19 at 14:59; Status DC Furosemide (Lasix) 20 mg 1X ONCE IVP Last administered on 10/07/19at 14:52; Start 10/07/19 at 10:45; Stop 10/07/19 at 10:49; Status DC Potassium Acetate 60 meq/Magnesium Sulfate 14 meq/ Multivitamins 10 ml/Chromium/ Copper/Manganese/ Seleni/Zn 1 ml/ Insulin Human Regular 15 unit/ Total Parenteral Nutrition/Amino Acids/Dextrose/ Fat Emulsion Intravenous 1,920 ml @ 80 mls/hr TPN CONT IV Last administered on 10/07/19at 22:08; Start 10/07/19 at 22:00; Stop 10/08/19 at 21:59; Status DC Potassium Acetate 60 meq/Magnesium Sulfate 14 meq/ Multivitamins 10 ml/Chromium/ Copper/Manganese/ Seleni/Zn 1 ml/ Insulin Human Regular 15 unit/ Total Parenteral Nutrition/Amino Acids/Dextrose/ Fat Emulsion Intravenous 1,920 ml @ 80 mls/hr TPN CONT IV Last administered on 10/08/19at 22:12; Start 10/08/19 at 22:00; Stop 10/09/19 at 21:59; Status DC Potassium Acetate 60 meq/Magnesium Sulfate 14 meq/ Multivitamins 10 ml/Chromium/ Copper/Manganese/ Seleni/Zn 1 ml/ Insulin Human Regular 15 unit/ Total Parenteral Nutrition/Amino Acids/Dextrose/ Fat Emulsion Intravenous 1,920 ml @ 80 mls/hr TPN CONT IV Last administered on 10/09/19at 22:22; Start 10/09/19 at 22:00; Stop 10/10/19 at 21:59; Status DC Furosemide (Lasix) 20 mg 1X ONCE IVP Last administered on 10/10/19at 11:07; Start 10/10/19 at 10:30; Stop 10/10/19 at 10:34; Status DC Potassium Acetate 60 meq/Magnesium Sulfate 14 meq/ Multivitamins 10 ml/Chromium/ Copper/Manganese/ Seleni/Zn 1 ml/ Insulin Human Regular 15 unit/ Sodium Chloride 20 meq/Total Parenteral Nutrition/Amino Acids/Dextrose/ Fat Emulsion Intravenous 1,920 ml @ 80 mls/hr TPN CONT IV Last administered on 10/10/19at 21:54; Start 10/10/19 at 22:00; Stop 10/11/19 at 21:59; Status DC Potassium Acetate 30 meq/Magnesium Sulfate 14 meq/ Multivitamins 10 ml/Chromium/ Copper/Manganese/ Seleni/Zn 1 ml/ Insulin Human Regular 15 unit/ Sodium Chloride 20 meq/Potassium Chloride 30 meq/ Total Parenteral Nutrition/Amino Acids/Dextrose/ Fat Emulsion Intravenous 1,920 ml @ 80 mls/hr TPN CONT IV Last administered on 10/11/19at 21:46; Start 10/11/19 at 22:00; Stop 10/12/19 at 21:59; Status DC Sodium Chloride 80 meq/Potassium Chloride 30 meq/ Potassium Acetate 30 meq/Magnesium Sulfate 14 meq/ Multivitamins 10 ml/Chromium/ Copper/Manganese/ Seleni/Zn 1 ml/ Insulin Human Regular 15 unit/ Total Parenteral Nutrition/Amino Acids/Dextrose/ Fat Emulsion Intravenous 1,920 ml @ 80 mls/hr TPN CONT IV Last administered on 10/12/19at 22:33; Start 10/12/19 at 22:00; Stop 10/13/19 at 21:59; Status DC Furosemide (Lasix) 40 mg 1X ONCE IVP Last administered on 10/12/19at 16:27; Start 10/12/19 at 15:30; Stop 10/12/19 at 15:33; Status DC Albumin Human 250 ml @ 62.5 mls/hr 1X ONCE IV Last administered on 10/12/19at 16:27; Start 10/12/19 at 15:30; Stop 10/12/19 at 19:29; Status DC Sodium Chloride 80 meq/Potassium Chloride 30 meq/ Potassium Acetate 30 meq/Magnesium Sulfate 14 meq/ Multivitamins 10 ml/Chromium/ Copper/Manganese/ Seleni/Zn 1 ml/ Insulin Human Regular 15 unit/ Total Parenteral Nutrition/Amino Acids/Dextrose/ Fat Emulsion Intravenous 1,920 ml @ 80 mls/hr TPN CONT IV Last administered on 10/13/19at 22:25; Start 10/13/19 at 22:00; Stop 10/14/19 at 21:59; Status DC Sodium Chloride 80 meq/Potassium Chloride 30 meq/ Potassium Acetate 30 meq/Magnesium Sulfate 14 meq/ Multivitamins 10 ml/Chromium/ Copper/Manganese/ Seleni/Zn 1 ml/ Insulin Human Regular 15 unit/ Total Parenteral Nutrition/Amino Acids/Dextrose/ Fat Emulsion Intravenous 1,920 ml @ 80 mls/hr TPN CONT IV Last administered on 10/14/19at 21:32; Start 10/14/19 at 22:00; Stop 10/15/19 at 21:59; Status DC Sodium Chloride 80 meq/Potassium Chloride 30 meq/ Potassium Acetate 30 meq/Magnesium Sulfate 14 meq/ Multivitamins 10 ml/Chromium/ Copper/Manganese/ Seleni/Zn 1 ml/ Insulin Human Regular 15 unit/ Total Parenteral Nutrition/Amino Acids/Dextrose/ Fat Emulsion Intravenous 1,920 ml @ 80 mls/hr TPN CONT IV Last administered on 10/15/19at 21:53; Start 10/15/19 at 22:00; Stop 10/16/19 at 21:59; Status DC Acetylcysteine (Mucomyst 20% Resp Treatment) 600 mg RTBID NEB Last administered on 11/28/19at 08:42; Start 10/15/19 at 12:00 Sodium Chloride 80 meq/Potassium Chloride 30 meq/ Potassium Acetate 30 meq/Magnesium Sulfate 14 meq/ Multivitamins 10 ml/Chromium/ Copper/Manganese/ Seleni/Zn 1 ml/ Insulin Human Regular 15 unit/ Total Parenteral Nutrition/Amino Acids/Dextrose/ Fat Emulsion Intravenous 1,920 ml @ 80 mls/hr TPN CONT IV Last administered on 10/16/19at 22:06; Start 10/16/19 at 22:00; Stop 10/17/19 at 21:59; Status DC Meropenem 500 mg/ Sodium Chloride 50 ml @ 100 mls/hr Q6HRS IV Last administered on 11/08/19at 06:15; Start 10/16/19 at 18:00; Stop 11/08/19 at 08:23; Status DC Daptomycin 500 mg/ Sodium Chloride 50 ml @ 100 mls/hr Q24H IV Last administe red on 10/24/19at 21:47; Start 10/16/19 at 19:00; Stop 10/25/19 at 08:13; Status DC Sodium Chloride 80 meq/Potassium Chloride 30 meq/ Potassium Acetate 30 meq/Magnesium Sulfate 14 meq/ Multivitamins 10 ml/Chromium/ Copper/Manganese/ Seleni/Zn 1 ml/ Insulin Human Regular 15 unit/ Total Parenteral Nutrition/Amino Acids/Dextrose/ Fat Emulsion Intravenous 1,920 ml @ 80 mls/hr TPN CONT IV Last administered on 10/17/19at 22:09; Start 10/17/19 at 22:00; Stop 10/18/19 at 21:59; Status DC Heparin Sodium (Porcine) 1000 unit/Sodium Chloride 1,001 ml @ 1,001 mls/hr 1X ONCE IRR ; Start 10/18/19 at 06:00; Stop 10/18/19 at 06:59; Status DC Propofol (Diprivan) 200 mg STK-MED ONCE IV ; Start 10/18/19 at 07:44; Stop 10/18/19 at 07:44; Status DC Lidocaine HCl (Lidocaine Pf 2% Vial) 5 ml STK-MED ONCE .ROUTE ; Start 10/18/19 at 07:44; Stop 10/18/19 at 07:44; Status DC Fentanyl Citrate (Fentanyl 2ml Vial) 100 mcg STK-MED ONCE .ROUTE ; Start 10/18/19 at 07:44; Stop 10/18/19 at 07:44; Status DC Rocuronium [place] (Zemuron) 100 mg STK-MED ONCE .ROUTE ; Start 10/18/19 at 07:44; Stop 10/18/19 at 07:44; Status DC Micafungin Sodium 100 mg/Dextrose 100 ml @ 100 mls/hr Q24H IV Last administered on 11/22/19at 09:30; Start 10/18/19 at 08:30; Stop 11/23/19 at 08:20; Status DC Bupivacaine HCl/ Epinephrine Bitart (Sensorcain-Epi 0.5%-1:[id number] Mpf) 30 ml STK-MED ONCE .ROUTE ; Start 10/18/19 at 08:34; Stop 10/18/19 at 08:35; Status DC Iohexol (Omnipaque 300 Mg/ml) 50 ml STK-MED ONCE .ROUTE Last administered on 10/18/19at 13:30; Start 10/18/19 at 08:35; Stop 10/18/19 at 08:35; Status DC Sodium Chloride 80 meq/Potassium Chloride 30 meq/ Potassium Acetate 30 meq/Magn esium Sulfate 14 meq/ Multivitamins 10 ml/Chromium/ Copper/Manganese/ Seleni/Zn 1 ml/ Insulin Human Regular 15 unit/ Total Parenteral Nutrition/Amino Acids/Dextrose/ Fat Emulsion Intravenous 1,920 ml @ 80 mls/hr TPN CONT IV Last administered on 10/19/19at 01:22; Start 10/18/19 at 22:00; Stop 10/19/19 at 21:59; Status DC Phenylephrine HCl (Brayden-Synephrine Inj) 10 mg STK-MED ONCE .ROUTE ; Start 10/18/19 at 10:15; Stop 10/18/19 at 10:15; Status DC Desflurane (Suprane) 90 ml STK-MED ONCE IH ; Start 10/18/19 at 10:18; Stop 10/18/19 at 10:19; Status DC Albumin Human 500 ml @ As Directed STK-MED ONCE IV ; Start 10/18/19 at 11:06; Stop 10/18/19 at 11:06; Status DC Vasopressin (Vasostrict) 20 unit STK-MED ONCE .ROUTE ; Start 10/18/19 at 12:23; Stop 10/18/19 at 12:23; Status DC Phenylephrine HCl (Brayden-Synephrine Inj) 10 mg STK-MED ONCE .ROUTE ; Start 10/18/19 at 13:33; Stop 10/18/19 at 13:33; Status DC Phenylephrine HCl (Brayden-Synephrine Inj) 10 mg STK-MED ONCE .ROUTE ; Start 10/18/19 at 13:33; Stop 10/18/19 at 13:33; Status DC Ondansetron HCl (Zofran) 4 mg STK-MED ONCE .ROUTE ; Start 10/18/19 at 13:33; Stop 10/18/19 at 13:33; Status DC Enoxaparin Sodium (Lovenox 40mg Syringe) 40 mg Q24H SQ Last administered on 11/28/19at 08:23; Start 10/19/19 at 08:00 Sodium Chloride (Normal Saline Flush) 3 ml QSHIFT PRN IV AFTER MEDS AND BLOOD DRAWS; Start 10/18/19 at 14:45; Stop 11/21/19 at 09:45; Status DC Naloxone HCl (Narcan) 0.4 mg PRN Q2MIN PRN IV SEE INSTRUCTIONS; Start 10/18/19 at 14:45; Stop 11/21/19 at 09:45; Status DC Sodium Chloride 1,000 ml @ 25 mls/hr Q24H IV Last administered on 11/20/19at 20:55; Start 10/18/19 at 14:33; Stop 11/21/19 at 09:45; Status DC Morphine Sulfate (Morphine Sulfate) 1 mg PRN Q1HR PRN IV PAIN Last administered on 11/12/19at 18:28; Start 10/18/19 at 14:45; Stop 11/21/19 at 09:45; Status DC Midazolam HCl 100 mg/Sodium Chloride 100 ml @ 1 mls/hr CONT PRN IV SEE I/O RECORD Last administered on 10/21/19at 18:48; Start 10/18/19 at 14:45; Stop 11/21/19 at 09:45; Status DC Phenylephrine HCl (PHENYLEPHRINE in 0.9% NACL PF) 1 mg STK-MED ONCE IV ; Start 10/18/19 at 14:44; Stop 10/18/19 at 14:45; Status DC Ephedrine Sulfate (ePHEDrine PF IN SALINE SYRINGE) 50 mg STK-MED ONCE IV ; Start 10/18/19 at 14:45; Stop 10/18/19 at 14:45; Status DC Vasopressin 20 unit/Dextrose 101 ml @ 12 mls/hr CONT PRN IV SEE I/O RECORD Last administered on 10/25/19at 04:17; Start 10/18/19 at 15:30; Stop 11/21/19 at 09:45; Status DC Sodium Chloride 1,000 ml @ 1,000 mls/hr 1X ONCE IV Last administered on 10/18/19at 15:42; Start 10/18/19 at 15:45; Stop 10/18/19 at 16:44; Status DC Albumin Human 500 ml @ 125 mls/hr 1X ONCE IV ; Start 10/18/19 at 16:00; Stop 10/18/19 at 19:59; Status DC Albumin Human 500 ml @ 125 mls/hr PRN Q1HR PRN IV PER PROTOCOL; Start 10/18/19 at 15:45; Stop 11/21/19 at 09:52; Status DC Magnesium Sulfate 50 ml @ 25 mls/hr 1X ONCE IV Last administered on 10/18/19at 17:02; Start 10/18/19 at 16:30; Stop 10/18/19 at 18:29; Status DC Sodium Bicarbonate (Sodium Bicarb Adult 8.4% Syr) 50 meq STK-MED ONCE .ROUTE ; Start 10/18/19 at 16:20; Stop 10/18/19 at 16:20; Status DC Sodium Bicarbonate (Sodium Bicarb Adult 8.4% Syr) 100 meq 1X ONCE IV Last administered on 10/18/19at 17:07; Start 10/18/19 at 16:30; Stop 10/18/19 at 16:31; Status DC Sodium Bicarbonate 150 meq/Dextrose 1,150 ml @ 75 mls/hr 1X ONCE IV Last administered on 10/18/19at 20:02; Start 10/18/19 at 16:30; Stop 10/19/19 at 07:49; Status DC Sodium Chloride 80 meq/Potassium Chloride 30 meq/ Potassium Acetate 30 meq/Magnesium Sulfate 14 meq/ Multivitamins 10 ml/Chromium/ Copper/Manganese/ Seleni/Zn 1 ml/ Insulin Human Regular 15 unit/ Total Parenteral Nutrition/Amino Acids/Dextrose/ Fat Emulsion Intravenous 1,920 ml @ 80 mls/hr TPN CONT IV Last administered on 10/19/19at 23:05; Start 10/19/19 at 22:00; Stop 10/20/19 at 21:59; Status DC Sodium Chloride 100 meq/Potassium Chloride 30 meq/ Potassium Acetate 30 meq/Magnesium Sulfate 12 meq/ Multivitamins 10 ml/Chromium/ Copper/Manganese/ Seleni/Zn 1 ml/ Insulin Human Regular 15 unit/ Total Parenteral Nutrition/Amino Acids/Dextrose/ Fat Emulsion Intravenous 1,920 ml @ 80 mls/hr TPN CONT IV Last administered on 10/20/19at 21:52; Start 10/20/19 at 22:00; Stop 10/21/19 at 21:59; Status DC Sodium Chloride 100 meq/Potassium Chloride 30 meq/ Potassium Acetate 30 meq/Magnesium Sulfate 12 meq/ Multivitamins 10 ml/Chromium/ Copper/Manganese/ Seleni/Zn 1 ml/ Insulin Human Regular 15 unit/ Total Parenteral Nutrition/Amino Acids/Dextrose/ Fat Emulsion Intravenous 1,920 ml @ 80 mls/hr TPN CONT IV Last administered on 10/21/19at 21:46; Start 10/21/19 at 22:00; Stop 10/22/19 at 21:59; Status DC Sodium Chloride 100 meq/Potassium Chloride 30 meq/ Potassium Acetate 30 meq/Magnesium Sulfate 12 meq/ Multivitamins 10 ml/Chromium/ Copper/Manganese/ Seleni/Zn 1 ml/ Insulin Human Regular 15 unit/ Total Parenteral Nutrition/Amino Acids/Dextrose/ Fat Emulsion Intravenous 1,800 ml @ 75 mls/hr TPN CONT IV Last administered on 10/22/19at 22:04; Start 10/22/19 at 22:00; Stop 10/23/19 at 21:59; Status DC Fentanyl Citrate 55 ml @ 0 mls/hr CONT PRN IV SEE COMMENTS Last administered on 10/24/19at 23:55; Start 10/22/19 at 13:00; Stop 10/27/19 at 17:28; Status DC Sodium Chloride 100 meq/Potassium Chloride 30 meq/ Potassium Acetate 30 meq/Magnesium Sulfate 12 meq/ Multivitamins 10 ml/Chromium/ Copper/Manganese/ Seleni/Zn 1 ml/ Insulin Human Regular 15 unit/ Total Parenteral Nutrition/Amino Acids/Dextrose/ Fat Emulsion Intravenous 1,680 ml @ 70 mls/hr TPN CONT IV Last administered on 10/23/19at 21:23; Start 10/23/19 at 22:00; Stop 10/24/19 at 21:59; Status DC Sodium Chloride 110 meq/Potassium Chloride 30 meq/ Potassium Acetate 30 meq/Magnesium Sulfate 15 meq/ Multivitamins 10 ml/Chromium/ Copper/Manganese/ Seleni/Zn 1 ml/ Insulin Human Regular 15 unit/ Total Parenteral Nutrition/Amino Acids/Dextrose/ Fat Emulsion Intravenous 1,680 ml @ 70 mls/hr TPN CONT IV Last administered on 10/24/19at 21:48; Start 10/24/19 at 22:00; Stop 10/25/19 at 21:59; Status DC Sodium Chloride 110 meq/Potassium Chloride 30 meq/ Potassium Acetate 30 meq/Magnesium Sulfate 15 meq/ Multivitamins 10 ml/Chromium/ Copper/Manganese/ Seleni/Zn 1 ml/ Insulin Human Regular 15 unit/ Total Parenteral Nutrition/Amino Acids/Dextrose/ Fat Emulsion Intravenous 1,680 ml @ 70 mls/hr TPN CONT IV Last administered on 10/25/19at 21:33; Start 10/25/19 at 22:00; Stop 10/26/19 at 21:59; Status DC Sodium Chloride 110 meq/Potassium Chloride 30 meq/ Potassium Acetate 30 meq/Magnesium Sulfate 15 meq/ Multivitamins 10 ml/Chromium/ Copper/Manganese/ Seleni/Zn 1 ml/ Insulin Human Regular 15 unit/ Total Parenteral Nutrition/Amino Acids/Dextrose/ Fat Emulsion Intravenous 1,680 ml @ 70 mls/hr TPN CONT IV Last administered on 10/26/19at 21:51; Start 10/26/19 at 22:00; Stop 10/27/19 at 21:59; Status DC Sodium Chloride 90 meq/Potassium Chloride 30 meq/ Potassium Acetate 30 meq /Magnesium Sulfate 15 meq/ Multivitamins 10 ml/Chromium/ Copper/Manganese/ Seleni/Zn 1 ml/ Insulin Human Regular 15 unit/ Total Parenteral Nutrition/Amino Acids/Dextrose/ Fat Emulsion Intravenous 1,680 ml @ 70 mls/hr TPN CONT IV Last administered on 10/27/19at 22:38; Start 10/27/19 at 22:00; Stop 10/28/19 at 21:59; Status DC Fentanyl Citrate 30 ml @ 0 mls/hr CONT PRN IV SEE I/O RECORD; Start 10/27/19 at 17:30; Stop 11/21/19 at 09:45; Status DC Fentanyl (Duragesic 12mcg/ Hr Patch) 1 patch Q3DAYS TD Last administered on 11/27/19at 09:09; Start 10/28/19 at 09:00 Sodium Chloride 90 meq/Potassium Chloride 30 meq/ Potassium Acetate 30 meq /Magnesium Sulfate 15 meq/ Multivitamins 10 ml/Chromium/ Copper/Manganese/ Seleni/Zn 1 ml/ Insulin Human Regular 15 unit/ Total Parenteral Nutrition/Amino Acids/Dextrose/ Fat Emulsion Intravenous 1,680 ml @ 70 mls/hr TPN CONT IV Last administered on 10/28/19at 21:59; Start 10/28/19 at 22:00; Stop 10/29/19 at 21:59; Status DC Sodium Chloride 90 meq/Potassium Chloride 30 meq/ Potassium Acetate 30 meq/Magnesium Sulfate 15 meq/ Multivitamins 10 ml/Chromium/ Copper/Manganese/ Seleni/Zn 1 ml/ Insulin Human Regular 15 unit/ Total Parenteral Nutrition/Amino Acids/Dextrose/ Fat Emulsion Intravenous 1,680 ml @ 70 mls/hr TPN CONT IV Last administered on 10/29/19at 21:35; Start 10/29/19 at 22:00; Stop 10/30/19 at 21:59; Status DC Vancomycin HCl (Vanco Per Pharmacy) 1 each PRN DAILY PRN MC SEE COMMENTS Last administered on 11/01/19at 02:46; Start 10/30/19 at 09:15; Stop 11/02/19 at 07:41; Status DC Ciprofloxacin/ Dextrose 200 ml @ 200 mls/hr Q12HR IV Last administered on 11/07/19at 21:02; Start 10/30/19 at 10:00; Stop 11/08/19 at 08:20; Status DC Vancomycin HCl 2 gm/Sodium Chloride 500 ml @ 250 mls/hr 1X ONCE IV Last administered on 10/30/19at 10:34; Start 10/30/19 at 10:00; Stop 10/30/19 at 11:59; Status DC Sodium Chloride 90 meq/Potassium Chloride 30 meq/ Potassium Acetate 30 meq/Magnesium Sulfate 15 meq/ Multivitamins 10 ml/Chromium/ Copper/Manganese/ Seleni/Zn 1 ml/ Insulin Human Regular 15 unit/ Total Parenteral Nutrition/Amino Acids/Dextrose/ Fat Emulsion Intravenous 1,680 ml @ 70 mls/hr TPN CONT IV Las t administered on 10/30/19at 22:02; Start 10/30/19 at 22:00; Stop 10/31/19 at 21:59; Status DC Diphenhydramine HCl (Benadryl) 25 mg 1X ONCE IVP Last administered on 10/30/19at 14:26; Start 10/30/19 at 14:30; Stop 10/30/19 at 14:31; Status DC Vancomycin HCl 1.5 gm/Sodium Chloride 500 ml @ 250 mls/hr Q8H IV Last administered on 10/31/19at 03:08; Start 10/30/19 at 18:30; Stop 10/31/19 at 12:24; Status DC Vancomycin HCl (Vancomycin Trough Level) 1 each 1X ONCE MC Last administered on 10/31/19at 10:00; Start 10/31/19 at 10:00; Stop 10/31/19 at 10:01; Status DC Sodium Chloride 90 meq/Potassium Chloride 30 meq/ Potassium Acetate 30 m eq/Magnesium Sulfate 15 meq/ Multivitamins 10 ml/Chromium/ Copper/Manganese/ Seleni/Zn 1 ml/ Insulin Human Regular 15 unit/ Total Parenteral Nutrition/Amino Acids/Dextrose/ Fat Emulsion Intravenous 1,680 ml @ 70 mls/hr TPN CONT IV Last administered on 10/31/19at 22:13; Start 10/31/19 at 22:00; Stop 11/01/19 at 21:59; Status DC Vancomycin HCl (Vancomycin Random Level) 1 each 1X ONCE MC Last administered on 11/01/19at 01:00; Start 11/01/19 at 01:00; Stop 11/01/19 at 01:01; Status DC Vancomycin HCl 1.5 gm/Sodium Chloride 500 ml @ 250 mls/hr Q12H IV Last administered on 11/01/19at 22:07; Start 11/01/19 at 10:00; Stop 11/02/19 at 0 7:41; Status DC Vancomycin HCl (Vancomycin Trough Level) 1 each 1X ONCE MC ; Start 11/02/19 at 09:30; Stop 11/02/19 at 09:31; Status Cancel Sodium Chloride 90 meq/Potassium Chloride 30 meq/ Potassium Acetate 30 meq/Magnesium Sulfate 15 meq/ Multivitamins 10 ml/Chromium/ Copper/Manganese/ Seleni/Zn 1 ml/ Insulin Human Regular 15 unit/ Total Parenteral Nutrition/Amino Acids/Dextrose/ Fat Emulsion Intravenous 1,680 ml @ 70 mls/hr TPN CONT IV Last administered on 11/01/19at 22:08; Start 11/01/19 at 22:00; Stop 11/02/19 at 21:59; Status DC Alteplase, Recombinant (Cathflo For Central Catheter Clearance) 1 mg 1X ONCE INT CAT Last administered on 11/01/19at 11:49; Start 11/01/19 at 11:00; Stop 11/01/19 at 11:01; Status DC Daptomycin 500 mg/ Sodium Chloride 50 ml @ 100 mls/hr Q24H IV Last administered on 11/11/19at 08:25; Start 11/02/19 at 09:00; Stop 11/11/19 at 08:38; Status DC Sodium Chloride 90 meq/Potassium Chloride 30 meq/ Potassium Acetate 30 meq/Magnesium Sulfate 15 meq/ Multivitamins 10 ml/Chromium/ Copper/Manganese/ Seleni/Zn 1 ml/ Insulin Human Regular 15 unit/ Total Parenteral Nutrition/Amino Acids/Dextrose/ Fat Emulsion Intravenous 1,680 ml @ 70 mls/hr TPN CONT IV Last administered on 11/02/19at 22:55; Start 11/02/19 at 22:00; Stop 11/03/19 at 21:59; Status DC Sodium Chloride 90 meq/Potassium Chloride 30 meq/ Potassium Acetate 30 meq/Magnesium Sulfate 15 meq/ Multivitamins 10 ml/Chromium/ Copper/Manganese/ Seleni/Zn 1 ml/ Insulin Human Regular 15 unit/ Total Parenteral Nutrition/Amino Acids/Dextrose/ Fat Emulsion Intravenous 1,680 ml @ 70 mls/hr TPN CONT IV Last administered on 11/03/19at 22:06; Start 11/03/19 at 22:00; Stop 11/04/19 at 21:59; Status DC Diphenhydramine HCl (Benadryl) 50 mg STK-MED ONCE .ROUTE ; Start 11/03/19 at 18:34; Stop 11/03/19 at 18:35; Status DC Diphenhydramine HCl (Benadryl) 25 mg 1X ONCE IM ; Start 11/03/19 at 18:45; Stop 11/03/19 at 18:46; Status DC Diphenhydramine HCl (Benadryl) 25 mg 1X ONCE IVP Last administered on 11/03/19at 18:56; Start 11/03/19 at 19:00; Stop 11/03/19 at 19:01; Status DC Alprazolam (Xanax) 0.5 mg PRN TID PRN PO ANXIETY / AGITATION Last administered on 11/10/19at 11:49; Start 11/04/19 at 08:00; Stop 11/10/19 at 15:54; Status DC Sodium Chloride 110 meq/Potassium Chloride 30 meq/ Potassium Acetate 30 meq/Magnesium Sulfate 15 meq/ Multivitamins 10 ml/Chromium/ Copper/Manganese/ Seleni/Zn 1 ml/ Insulin Human Regular 15 unit/ Total Parenteral Nutrition/Amino Acids/Dextrose/ Fat Emulsion Intravenous 1,680 ml @ 70 mls/hr TPN CONT IV Last administered on 11/04/19at 21:21; Start 11/04/19 at 22:00; Stop 11/05/19 at 21:59; Status DC Sodium Chloride 110 meq/Potassium Chloride 30 meq/ Potassium Acetate 30 meq/Magnesium Sulfate 15 meq/ Multivitamins 10 ml/Chromium/ Copper/Manganese/ Seleni/Zn 1 ml/ Insulin Human Regular 15 unit/ Total Parenteral Nutrition/Amino Acids/Dextrose/ Fat Emulsion Intravenous 1,680 ml @ 70 mls/hr TPN CONT IV Last administered on 11/05/19at 22:01; Start 11/05/19 at 22:00; Stop 11/06/19 at 21:59; Status DC Alteplase, Recombinant (Cathflo For Central Catheter Clearance) 1 mg 1X ONCE INT CAT Last administered on 11/06/19at 08:23; Start 11/06/19 at 08:15; Stop 11/06/19 at 08:16; Status DC Sodium Chloride 110 meq/Sodium Phosphate 10 mmol/ Potassium Chloride 30 meq/ Potassium Acetate 30 meq/Magnesium Sulfate 15 meq/ Multivitamins 10 ml/Chromium/ Copper/Manganese/ Seleni/Zn 1 ml/ Insulin Human Regular 15 unit/ Total Parenteral Nutrition/Amino Acids/Dextrose/ Fat Emulsion Intravenous 1,680 ml @ 70 mls/hr TPN CONT IV Last administered on 11/06/19at 22:03; Start 11/06/19 at 22:00; Stop 11/07/19 at 21:59; Status DC Sodium Chloride 120 meq/Sodium Phosphate 10 mmol/ Potassium Chloride 30 meq/ Potassium Acetate 30 meq/Magnesium Sulfate 15 meq/ Multivitamins 10 ml/Chromium/ Copper/Manganese/ Seleni/Zn 1 ml/ Insulin Human Regular 15 unit/ Total Parenteral Nutrition/Amino Acids/Dextrose/ Fat Emulsion Intravenous 1,680 ml @ 70 mls/hr TPN CONT IV Last administered on 11/07/19at 22:08; Start 11/07/19 at 22:00; Stop 11/08/19 at 21:59; Status DC Ceftazidime/ Avibactam 2.5 gm/ Sodium Chloride 100 ml @ 50 mls/hr Q8HRS IV Last administered on 11/09/19at 05:32; Start 11/08/19 at 14:00; Stop 11/09/19 at 07:48; Status DC Alteplase, Recombinant (Cathflo For Central Catheter Clearance) 1 mg 1X ONCE I NT CAT Last administered on 11/08/19at 09:30; Start 11/08/19 at 09:30; Stop 11/08/19 at 09:31; Status DC Sodium Chloride 120 meq/Sodium Phosphate 10 mmol/ Potassium Chloride 30 meq/ Potassium Acetate 30 meq/Magnesium Sulfate 15 meq/ Multivitamins 10 ml/Chromium/ Copper/Manganese/ Seleni/Zn 1 ml/ Insulin Human Regular 15 unit/ Total Parenteral Nutrition/Amino Acids/Dextrose/ Fat Emulsion Intravenous 1,680 ml @ 70 mls/hr TPN CONT IV Last administered on 11/08/19at 22:11; Start 11/08/19 at 22:00; Stop 11/09/19 at 21:59; Status DC Iohexol (Omnipaque 300 Mg/ml) 75 ml 1X ONCE IV Last administered on 11/08/19at 11:30; Start 11/08/19 at 11:30; Stop 11/08/19 at 11:31; Status DC Info (CONTRAST GIVEN -- Rx MONITORING) 1 each PRN DAILY PRN MC SEE COMMENTS; Start 11/08/19 at 11:45; Stop 11/10/19 at 11:44; Status DC Alteplase, Recombinant (Cathflo For Central Catheter Clearance) 1 mg 1X ONCE INT CAT Last administered on 11/08/19at 12:17; Start 11/08/19 at 12:00; Stop 11/08/19 at 12:01; Status DC Cefepime HCl (Maxipime) 2 gm Q12HR IVP Last administered on 11/09/19at 20:53; Start 11/09/19 at 09:00; Stop 11/10/19 at 07:30; Status DC Sodium Chloride 120 meq/Sodium Phosphate 10 mmol/ Potassium Chloride 30 meq/ Potassium Acetate 30 meq/Magnesium Sulfate 15 meq/ Multivitamins 10 ml/Chromium/ Copper/Manganese/ Seleni/Zn 1 ml/ Insulin Human Regular 15 unit/ Total Parenteral Nutrition/Amino Acids/Dextrose/ Fat Emulsion Intravenous 1,680 ml @ 70 mls/hr TPN CONT IV Last administered on 11/09/19at 21:25; Start 11/09/19 at 22:00; Stop 11/10/19 at 21:59; Status DC Ceftazidime/ Avibactam 2.5 gm/ Sodium Chloride 250 ml @ 125 mls/hr Q8HRS IV Last administered on 11/23/19at 05:38; Start 11/10/19 at 08:00; Stop 11/23/19 at 08:20; Status DC Sodium Chloride 120 meq/Sodium Phosphate 10 mmol/ Potassium Chloride 30 meq/ Potassium Acetate 30 meq/Magnesium Sulfate 15 meq/ Multivitamins 10 ml/Chromium/ Copper/Manganese/ Seleni/Zn 1 ml/ Insulin Human Regular 15 unit/ Total Parenteral Nutrition/Amino Acids/Dextrose/ Fat Emulsion Intravenous 1,680 ml @ 70 mls/hr TPN CONT IV Last administered on 11/10/19at 22:35; Start 11/10/19 at 22:00; Stop 11/11/19 at 21:59; Status DC Alprazolam (Xanax) 0.5 mg PRN QID PRN PO ANXIETY / AGITATION Last administered on 11/28/19at 03:46; Start 11/10/19 at 16:00 Acetaminophen/ Hydrocodone Bitart (Lortab 5/325) 1 tab PRN Q4HRS PRN PO PAIN Last administered on 11/28/19at 03:46; Start 11/10/19 at 16:00 Sodium Chloride 120 meq/Sodium Phosphate 10 mmol/ Potassium Chloride 30 meq/ Potassium Acetate 30 meq/Magnesium Sulfate 15 meq/ Multivitamins 10 ml/Chromium/ Copper/Manganese/ Seleni/Zn 1 ml/ Insulin Human Regular 15 unit/ Total Parenteral Nutrition/Amino Acids/Dextrose/ Fat Emulsion Intravenous 1,680 ml @ 70 mls/hr TPN CONT IV Last administered on 11/11/19at 21:50; Start 11/11/19 at 22:00; Stop 11/12/19 at 21:59; Status DC Sodium Chloride 120 meq/Sodium Phosphate 10 mmol/ Potassium Chloride 30 meq/ Potassium Acetate 30 meq/Magnesium Sulfate 15 meq/ Multivitamins 10 ml/Chromium/ Copper/Manganese/ Seleni/Zn 1 ml/ Insulin Human Regular 15 unit/ Total Parenteral Nutrition/Amino Acids/Dextrose/ Fat Emulsion Intravenous 1,680 ml @ 70 mls/hr TPN CONT IV Last administered on 11/12/19at 22:14; Start 11/12/19 at 22:00; Stop 11/13/19 at 21:59; Status DC Daptomycin 500 mg/ Sodium Chloride 50 ml @ 100 mls/hr Q24H IV Last administered on 11/22/19at 09:20; Start 11/13/19 at 09:00; Stop 11/23/19 at 08:20; Status DC Sodium Chloride 120 meq/Sodium Phosphate 10 mmol/ Potassium Chloride 30 meq/ Potassium Acetate 30 meq/Magnesium Sulfate 15 meq/ Multivitamins 10 ml/Chromium/ Copper/Manganese/ Seleni/Zn 1 ml/ Insulin Human Regular 15 unit/ Total Parenteral Nutrition/Amino Acids/Dextrose/ Fat Emulsion Intravenous 1,680 ml @ 70 mls/hr TPN CONT IV ; Start 11/13/19 at 22:00; Stop 11/14/19 at 21:59; Status Cancel Amino Acids/ Glycerin/ Electrolytes 1,000 ml @ 80 mls/hr [id number] IV Last administered on 11/19/19at 18:10; Start 11/13/19 at 10:15; Stop 11/20/19 at 07:07; Status DC Iohexol (Omnipaque 300 Mg/ml) 50 ml 1X ONCE IJ ; Start 11/15/19 at 11:00; Stop 11/15/19 at 11:01; Status DC Sodium Chloride 500 ml @ 500 mls/hr 1X ONCE IV Last administered on 11/15/19at 18:30; Start 11/15/19 at 18:30; Stop 11/15/19 at 19:29; Status DC Lidocaine HCl (Buffered Lidocaine 1%) 3 ml 1X ONCE INJ ; Start 11/17/19 at 12:15; Stop 11/17/19 at 12:17; Status DC Fentanyl Citrate (Fentanyl 2ml Vial) 25 mcg PRN Q6HRS PRN IVP SEE INSTUCTIONS Last administered on 11/27/19at 06:00; Start 11/21/19 at 10:00 Sodium Chloride 1,000 ml @ 125 mls/hr Q8H IV Last administered on 11/21/19at 23:16; Start 11/21/19 at 23:21; Stop 11/22/19 at 09:23; Status DC Sodium Chloride 1,000 ml @ 350 mls/hr 1X ONCE IV Last administered on 11/21/19at 20:29; Start 11/21/19 at 20:30; Stop 11/21/19 at 23:21; Status DC Vitamin A/Vitamin D (Vitamin A & D Ointment) 1 ramu PRN Q1HR PRN TP SKIN PROTECTION Last administered on 11/26/19at 05:26; Start 11/22/19 at 09:15 Iohexol (Omnipaque 240 Mg/ml) 50 ml STK-MED ONCE .ROUTE ; Start 11/22/19 at 14:18; Stop 11/22/19 at 14:19; Status DC Lidocaine HCl (Buffered Lidocaine 1%) 3 ml STK-MED ONCE .ROUTE ; Start 11/22/19 at 14:19; Stop 11/22/19 at 14:19; Status DC Fentanyl Citrate (Fentanyl 2ml Vial) 100 mcg STK-MED ONCE .ROUTE ; Start 11/22/19 at 15:03; Stop 11/22/19 at 15:03; Status DC Lidocaine HCl (Buffered Lidocaine 1%) 5 ml 1X ONCE INJ Last administered on 11/22/19at 15:00; Start 11/22/19 at 15:45; Stop 11/22/19 at 15:46; Status DC Iohexol (Omnipaque 240 Mg/ml) 10 ml 1X ONCE IJ Last administered on 11/22/19at 15:00; Start 11/22/19 at 15:45; Stop 11/22/19 at 15:46; Status DC Multivitamins/ Minerals Therapeutic (Centrum Multivit-Mineral Liq) 5 ml DAILY PEG Last administered on 11/28/19at 08:23; Start 11/23/19 at 09:00 Alteplase, Recombinant 5 mg/ Sodium Chloride 30 ml @ 30 mls/hr 1X PRN IV SEE COMMENTS; Start 11/23/19 at 06:45; Status UNV Alteplase, Recombinant (Cathflo For Central Catheter Clearance) 1 mg 1X ONCE INT CAT Last administered on 11/23/19at 09:30; Start 11/23/19 at 07:00; Stop 11/23/19 at 07:01; Status DC Sodium Chloride 1,000 ml @ 125 mls/hr 1X ONCE IV Last administered on 11/23/19at 16:12; Start 11/23/19 at 14:30; Stop 11/23/19 at 22:29; Status DC Furosemide (Lasix) 40 mg 1X ONCE IVP Last administered on 11/23/19at 16:17; Start 11/23/19 at 14:30; Stop 11/23/19 at 14:33; Status DC Furosemide (Lasix) 40 mg [id number] IVP Last administered on 11/24/19at 13:51; Start 11/24/19 at 09:00; Stop 11/24/19 at 14:01; Status DC Sodium Chloride 1,000 ml @ 125 mls/hr 1X ONCE IV Last administered on 11/24/19at 08:20; Start 11/24/19 at 07:45; Stop 11/24/19 at 15:44; Status DC Calcitonin [place] (Miacalcin) 400 unit BID SQ Last administered on 11/24/19at 18:18; Start 11/24/19 at 18:00; Stop 11/25/19 at 15:56; Status DC Zoledronic Acid 100 ml @ 400 mls/hr 1X ONCE IV Last administered on 11/25/19at 13:04; Start 11/25/19 at 12:00; Stop 11/25/19 at 12:14; Status DC Metoprolol Tartrate (Lopressor Vial) 5 mg 1X ONCE IVP Last administered on 11/27/19at 10:54; Start 11/27/19 at 10:45; Stop 11/27/19 at 10:46; Status DC Cefepime HCl (Maxipime) 2 gm Q12HR IVP ; Start 11/28/19 at 10:00 Metronidazole 100 ml @ 100 mls/hr Q12HR IV Last administered on 11/28/19at 10:04; Start 11/28/19 at 10:00 Active Scripts Active Reported Bisoprolol Fumarate 5 Mg Tablet 10 Mg PO DAILY Vitals/I & O Vital Sign - Last 24 Hours 11/27/19 11/27/19 11/27/19 11/27/19 10:54 10:55 11:57 13:09 Temp 99.7 99.7 Pulse 155 151 Resp 20 B/P (MAP) 139/91 139/91 (107) Pulse Ox 95 94 94 O2 Delivery Room Air Room Air Room Air O2 Flow Rate 2.0 11/27/19 11/27/19 11/27/19 11/27/19 14:48 15:00 15:36 19:15 Temp 99.4 99.7 99.4 99.7 Pulse 158 155 157 Resp 18 40 B/P (MAP) 139/91 142/91 (108) 129/84 (99) Pulse Ox 91 96 92 O2 Delivery Room Air Room Air Room Air 11/27/19 11/27/19 11/27/19 11/27/19 19:15 19:46 19:48 22:28 Temp 98.6 98.6 Pulse 148 Resp 34 B/P (MAP) 109/67 (81) Pulse Ox 95 95 95 O2 Delivery Room Air Room Air Room Air Room Air 11/28/19 11/28/19 11/28/19 11/28/19 01:47 02:32 03:46 05:00 Temp 99.1 99.1 Pulse 160 141 Resp 44 20 20 B/P (MAP) 109/67 115/63 (80) Pulse Ox 94 94 O2 Delivery Room Air Room Air O2 Flow Rate 2.0 11/28/19 11/28/19 07:00 08:42 Temp 99.2 99.2 Pulse 136 Resp 20 B/P (MAP) 107/64 (78) Pulse Ox 95 95 O2 Delivery Room Air Room Air Intake and Output 11/27/19 11/27/19 11/28/19 15:00 23:00 07:00 Intake Total 45 ml 306 ml 691 ml Output Total 1125 ml 800 ml 820 ml Balance -1080 ml -494 ml -129 ml Justicifation of Admission Dx: Justifications for Admission: Justification of Admission Dx: Yes ABI AHN MD Nov 28, 2019 10:24
[2019-11-28 11:00] VITALS: BP 116/54
--- NOTE | 2019-11-28 11:46 | NUR ---
SS following up with discharge planning. SS reviewed pt chart and discussed with pt RN. Pt is from home and is currently on room air. Pt started IV Cefepime and IV Flagyl. Pt continues to have ostomy equipment over drainage sites. Pt has Lind. Per pulmonology pt may have trach removed soon. Pt Max Assist with PT/OT and staff. SS contacted [employer] to follow up with disability application. Med Assist reported that pt's daughters have not provided needed information to this date. APS hotline report was made last week due to lack of compliance from pt's daughters. SS will continue to follow for discharge planning.
--- NOTE | 2019-11-28 12:08 | PDOC ---
PULMONARY PROGRESS NOTES DATE: 11/28/19 TIME: 12:07 Subjective Resting comfortable on trach W/ room air no complaints, no overnight concerns from nursing Vitals Vital Signs Date Time Temp Pulse Resp B/P (MAP) Pulse Ox O2 Delivery O2 Flow Rate FiO2 11/28/19 11:00 99.9 144 24 116/54 (74) 95 Room Air 99.9 11/28/19 05:00 2.0 ROS: No Nausea, No Chest Pain, No Abdominal Pain, No Increase Cough General: Alert HEENT: Other (trach site CDI) Lungs: Clear Cardiovascular: S1, S2 Abdomen: Soft, Non-tender, Other (multiple KAYLIN drains ) Neuro Exam: Alert Extremities: Other (+1 BLE edema) Skin: Warm Labs Laboratory Tests Test 11/26/19 12:23 11/26/19 18:29 11/27/19 02:33 11/27/19 05:20 Glucose (Fingerstick) 129 mg/dL (70-99) 143 mg/dL (70-99) 119 mg/dL (70-99) Sodium Level 143 mmol/L (136-145) Potassium Level 4.7 mmol/L (3.5-5.1) Chloride Level 109 mmol/L (98-107) Carbon Dioxide Level 28 mmol/L (21-32) Anion Gap 6 (6-14) Blood Urea Nitrogen 21 mg/dL (7-20) Creatinine 0.8 mg/dL (0.6-1.0) Estimated GFR (Cockcroft-Gault) 76.2 Glucose Level 160 mg/dL (70-99) Calcium Level 10.1 mg/dL (8.5-10.1) Magnesium Level 1.9 mg/dL (1.8-2.4) Vitamin B12 Level 1169 pg/mL (247-911) 25-Hydroxy Vitamin D Total 15.9 ng/mL (30-100) Test 11/27/19 07:44 11/27/19 12:27 11/27/19 17:17 11/27/19 17:51 Glucose (Fingerstick) 133 mg/dL (70-99) 163 mg/dL (70-99) 164 mg/dL (70-99) Phosphorus Level 2.7 mg/dL (2.6-4.7) Test 11/27/19 19:50 11/27/19 23:01 11/28/19 03:00 11/28/19 09:45 Lactic Acid Level < 0.3 mmol/L (0.4-2.0) Glucose (Fingerstick) 166 mg/dL (70-99) White Blood Count 23.1 x10^3/uL (4.0-11.0) Red Blood Count 3.29 x10^6/uL (3.50-5.40) Hemoglobin 9.3 g/dL (12.0-15.5) Hematocrit 29.2 % (36.0-47.0) Mean Corpuscular Volume 89 fL (79-100) Mean Corpuscular Hemoglobin 28 pg (25-35) Mean Corpuscular Hemoglobin Concent 32 g/dL (31-37) Red Cell Distribution Width 18.9 % (11.5-14.5) Platelet Count 620 x10^3/uL (140-400) Neutrophils (%) (Auto) 82 % (31-73) Lymphocytes (%) (Auto) 12 % (24-48) Monocytes (%) (Auto) 6 % (0-9) Eosinophils (%) (Auto) 0 % (0-3) Basophils (%) (Auto) 0 % (0-3) Neutrophils # (Auto) 18.9 x10^3/uL (1.8-7.7) Lymphocytes # (Auto) 2.9 x10^3/uL (1.0-4.8) Monocytes # (Auto) 1.3 x10^3/uL (0.0-1.1) Eosinophils # (Auto) 0.0 x10^3/uL (0.0-0.7) Basophils # (Auto) 0.1 x10^3/uL (0.0-0.2) Sodium Level 145 mmol/L (136-145) Potassium Level 5.6 mmol/L (3.5-5.1) Chloride Level 111 mmol/L (98-107) Carbon Dioxide Level 26 mmol/L (21-32) Anion Gap 8 (6-14) Blood Urea Nitrogen 35 mg/dL (7-20) Creatinine 1.2 mg/dL (0.6-1.0) Estimated GFR (Cockcroft-Gault) 47.7 Glucose Level 138 mg/dL (70-99) Calcium Level 9.1 mg/dL (8.5-10.1) Urine Collection Type Unknown Urine Color Hollie Urine Clarity Turbid Urine pH 5.0 (<5.0-8.0) Urine Specific [place] >=1.030 (1.000-1.030) Urine Protein 100 mg/dL (NEG-TRACE) Urine Glucose (UA) Negative mg/dL (NEG) Urine Ketones (Stick) Trace mg/dL (NEG) Urine Blood Large (NEG) Urine Nitrite Negative (NEG) Urine Bilirubin Negative (NEG) Urine Urobilinogen Dipstick 0.2 mg/dL (0.2 mg/dL) Urine Leukocyte Esterase Large (NEG) Urine RBC Field obscured /HPF (0-2) Urine WBC Tntc /HPF (0-4) Urine Bacteria Many /HPF (0-FEW) Urine Yeast Present /HPF Laboratory Tests Test 11/27/19 12:27 11/27/19 17:17 11/27/19 17:51 11/27/19 19:50 Glucose (Fingerstick) 163 mg/dL (70-99) 164 mg/dL (70-99) Phosphorus Level 2.7 mg/dL (2.6-4.7) Lactic Acid Level < 0.3 mmol/L (0.4-2.0) Test 11/27/19 23:01 11/28/19 03:00 11/28/19 09:45 Glucose (Fingerstick) 166 mg/dL (70-99) White Blood Count 23.1 x10^3/uL (4.0-11.0) Red Blood Count 3.29 x10^6/uL (3.50-5.40) Hemoglobin 9.3 g/dL (12.0-15.5) Hematocrit 29.2 % (36.0-47.0) Mean Corpuscular Volume 89 fL (79-100) Mean Corpuscular Hemoglobin 28 pg (25-35) Mean Corpuscular Hemoglobin Concent 32 g/dL (31-37) Red Cell Distribution Width 18.9 % (11.5-14.5) Platelet Count 620 x10^3/uL (140-400) Neutrophils (%) (Auto) 82 % (31-73) Lymphocytes (%) (Auto) 12 % (24-48) Monocytes (%) (Auto) 6 % (0-9) Eosinophils (%) (Auto) 0 % (0-3) Basophils (%) (Auto) 0 % (0-3) Neutrophils # (Auto) 18.9 x10^3/uL (1.8-7.7) Lymphocytes # (Auto) 2.9 x10^3/uL (1.0-4.8) Monocytes # (Auto) 1.3 x10^3/uL (0.0-1.1) Eosinophils # (Auto) 0.0 x10^3/uL (0.0-0.7) Basophils # (Auto) 0.1 x10^3/uL (0.0-0.2) Sodium Level 145 mmol/L (136-145) Potassium Level 5.6 mmol/L (3.5-5.1) Chloride Level 111 mmol/L (98-107) Carbon Dioxide Level 26 mmol/L (21-32) Anion Gap 8 (6-14) Blood Urea Nitrogen 35 mg/dL (7-20) Creatinine 1.2 mg/dL (0.6-1.0) Estimated GFR (Cockcroft-Gault) 47.7 Glucose Level 138 mg/dL (70-99) Calcium Level 9.1 mg/dL (8.5-10.1) Urine Collection Type Unknown Urine Color Hollie Urine Clarity Turbid Urine pH 5.0 (<5.0-8.0) Urine Specific [place] >=1.030 (1.000-1.030) Urine Protein 100 mg/dL (NEG-TRACE) Urine Glucose (UA) Negative mg/dL (NEG) Urine Ketones (Stick) Trace mg/dL (NEG) Urine Blood Large (NEG) Urine Nitrite Negative (NEG) Urine Bilirubin Negative (NEG) Urine Urobilinogen Dipstick 0.2 mg/dL (0.2 mg/dL) Urine Leukocyte Esterase Large (NEG) Urine RBC Field obscured /HPF (0-2) Urine WBC Tntc /HPF (0-4) Urine Bacteria Many /HPF (0-FEW) Urine Yeast Present /HPF Medications Active Scripts Medications Dose Route/Sig Max Daily Dose Days Date Category Bisoprolol Fumarate 5 Mg Tablet 10 Mg PO DAILY 07/04/[address] reviewed 10/30/19, Decreased left-sided effusion after catheter placement. The right-sided effusion has increased as has atelectasis. There has been exchange or placement of multiple drainage tubes and a gastrojejunostomy tube. Both collections are smaller. No significant new abdominal fluid collection is seen. The jejunal component of the gastrojejunostomy tube appears to be looped in the proximal small bowel. ct abdomen /pelvis 09/23 1. Removal of the percutaneous pigtail drainage catheters since the prior exam. Sequela of pancreatitis with extensive pseudocysts again demonstrated, the right-sided collections are slightly larger since the prior exam, the left-sided collections are stable. See above. 2. Moderate to large left pleural effusion with atelectasis and collapse of most of the left lower lobe, stable. Small right pleural effusion is stable. 3. Gallstone. ct chest 10/02 reviewed GRAM NEG COCCOBACILLI:MANY SQUAMOUS EPI CELL:RARE PMN (WBCs):FEW Unless otherwise specified, Testing Performed by: [address] [id number] For Inquires, the Physician may contact the Microbiology department at [phone] RESPIRATORY CULTURE Final Final MANY GRAM NEGATIVE RODS on 10/03/19 at 1107 FINAL ID= [[email or web address]] MICRO CHARGES PSEUDOMONAS AERUGINOSA ANTIMICROBIAL SUSCEPTIBILITY Final Comment NEG ALEXANDRA 56 PSEUDOMONAS AERUGINOSA ANTIBIOTIC RESULT INTERPRETATION AMIKACIN <=16 S AZTREONAM <=4 S CEFTAZIDIME <=1 S CIPROFLOXACIN <=0.25 S CEFEPIME <=2 S CEFTAZIDIME/AVIBACTAM <=4 S GENTAMICIN <=2 S LEVOFLOXACIN <=0.5 S Impression . IMPRESSION: 1. Acute hypoxemic respiratory failure secondary to ARDS status post trach, developed anemia 09/24, blood drainage from RLQ abdomen drain site, and saha rrounding firmness / developed septic shock 09/24 from abdomen source, required levo 09/24-- now on room air with trach s/p 3 new drains 09/24 with brown color drainage, --- off pressors S/P Exp. 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 parapsilosis & PSAE (I-merrem/ceftazidime/AZT/cefepime)) Leucocytosis -improved Fever---resolved Acute gallstone pancreatitis with persistent necrosis - 07/27. CT A/P Increased ascites. 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 status post KAYLIN drain placement; C. parapsilosis. s/p drain 08/23 + yeast & high amylase; s/p additional drain on 08/25. Drains removed. -08/23. fluid devyn parapsilosis fluid, amylase high - 09/23 showed multiple pseudocysts, slight larger on the right. s/p drains x 3, 09/24. + PSAE (MDRO-R Cefepime, Zosyn ALEXANDRA < 64) and yeast, -09/24 s/p drain replacement x 3; fluid cult PSAE (MDRO), yeast; treated -10/29 CT A/P shows smaller fluid collections. -722 CT abdomen and pelvis drains in place Ascites s/p paracentesis 08/02 & 08/23. C. parapsilosis Cholelithiasis with thickening of the gallbladder wall. JUANA, Hyperkalemia, Metabolic acidosis off dialysis Acute hypoxic resp failure. trach/vent. sputum 09/30 + PSAE (I merrem) ; sputum culture November 05+ for PSAE R Merrem, sensitive to cefepime Pleural effusion status post CTS left side Abdominal fluid culture MDRO Pseudomonas, yeast Sputum culture positive 11/05 for MDRO Pseudomonas Chest tube fluid positive for 11/07 Devyn Parapsilosis S/P Exploratory laparotomy, lysis of adhesions, subtotal cholecystectomy with cholangiogram, gastrojejunostomy tube placement, pancreatic necrosectomy Plan . Stable from pulmonary stand point chest tube REMOVED 11/10 Transfuse as needed, monitor HGB Antibiotics per ID, now off ABX Trach shield, as tolerated, on room air-- attempt PMV/Capped, will plan to de- cannulate once more stronger Up to chair, PT/OT Follow surgery input-- no further surgical plans DVT GI prophylaxis f/u BC /resp cultures DVT/GI PPX Will see PRN call with any concerns VINAYAK LANDRUM MD Nov 28, 2019 12:08
--- NOTE | 2019-11-28 12:09 | PDOC ---
[employer] PROGRESS NOTE Date of Service DOS: DATE: 11/28/19 TIME: 11:54 Chief Complaint Chief Complaint S/P Exp. 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 parapsilosis & PSAE 11/12 (I-merrem/ceftazidime/AZT/cefepime)) Leucocytosis Fevers, intermittent Acute gallstone pancreatitis with persistent necrosis Acute hypoxic Respiratory failure required mechanical ventilation Tracheostomy Bilateral pleural effusions/pulm edema s/p Throacentesis on 10/03/2019 HTN Intractable pain Intractable nausea Covid 19 negative Acute on chronic anemia Abd distention - U/S and CT reviewed s/p 0.4 L of opaque, debris-containing a scites was removed 08/23 Gallstone pancreatitis with necrosis. -CT A/P 09/23 showed multiple pseudocysts, slight larger on the right. s/p drains x 3, 09/24. + PSAE (MDRO-R Cefepime, Zosyn ALEXANDRA < 64) and yeast, -s/p drain 08/14. C. parapsilosis. s/p drain 08/23 + yeast & high amylase; s/p additional drain on 08/25. Drains removed. Ascites s/p paracentesis 08/02 & 08/23. C. parapsilosis JUANA. off HD. A large fluid collection in the pancreatic bed has slightly decreased in size, described below, the pancreas itself is difficult to visualize, which could be due to necrosis or obscuration of pancreatic parenchyma from the surrounding fluid collection.10/02 - 08/14 status post KAYLIN drain placement + C paropsilosis. s/p additional drains 08/25 Hypocalcemia Prediabetes s/p trach Hyperglycemia Severe protein-caloric malnutrition Extensive retroperitoneal fluid collections persist. Percutaneous drains remain within the collections in both paracolic gutters. These communicate with additional pelvic and peripancreatic collections. History of Present Illness History of Present Illness 11/28/2019 Patient seen and examined Afebrile Resting in NAD Tachycardic and tachypneic overnight Recurring leukocytosis, 23.0 Chart reviewed Discussed with RN 11/26: Afebrile. Calcium down to 10.1. Little more tachycardic today with some more secretions. No O2 requirements. Does not wish to wear her speaking valve. Will check CXR. 11/25: Afebrile, weak, having more secretions not wearing a speaking valve today. WBC 10, Hb 8.8, NA 144, and K3.7, BUN 12, CR 0.5, calcium down to 10.3. After zoledronic acid 11/24: Had a rash after calcitonin injection. Discussed with nephrology with her calcium moving from 11.3-10.9 will give IV bisphosphonate today, zoledronic acid. 11/23: Hb stable. Afebrile. Weak. Calcium increased. Shortness of breath is improving. Plan for calcitonin today, lasix, and saline 11/22: Hemoglobin abnormally low on repeat has been stable 7.2. Calcium up to 10.9. She is able to work with PT, she is asking to eat. Social work is been having difficulties with both of her daughters completing the financial aspect of disability paperwork which is been prolonging her stay over the past 5 months. Plan to check PTH and to treat hypercalcemia with 1 L normal saline 40 mg of IV Lasix and repeat labs in a.m. 11/21: Not wishing to wear her speaking valve. J tube having some difficulties. Afebrile. Jamaal bedside to aid her. transferred from ICU today 11/20: No overnight events. Calcium 10.7 on AM labs. She is still a bit slow to to respond, but follows commands well. Does not want speaking valve with me. Pain is better controlled in her abdomen. Wound care to see today. Will check liver function and phos levels given her calcium elevation. 11/19: Patient seen and examined bedside. Positive fluid balance in the past 24 hours. Patient's chart, labs, images were reviewed and discussed with RN 11/18: No acute events overnight. Seen and examined at bedside. Patient had a fever 100.2. Negative fluid balance of 150 cc. Patient's chart, labs, images were reviewed and discussed with RN 11/17: Patient seen and examined at bedside. No acute events overnight. Positive fluid balance 633. Patient's chart, labs, images were reviewed and discussed with RN 11/16: Patient seen and examined bedside. No acute events overnight. Patient's chart, labs, images were reviewed and discussed with RN 11/14: Patient seen and examined bedside. Patient appears to be in no obvious pain. All drains have been adequately draining. Patient continues to be on TPN. Chart labs and imaging was reviewed. Negative fluid balance of 270 cc 11/13:Patient seen and examined in the ICU. Patient still requires extensive care. 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 Chart, labs, imaging was reviewed. UOP with + 500cc balance. 11/11: Patient seen in and examined in the ICU. She is still extremely critically ill. Appears weak, frail, and pale. Better color today with improved eye contact and expression. Discussed with RN. Chart reviewed 11/07: Patient seen and examined in the ICU, She is still extremely critically ill, Appears extremely weak frail and pale, Discussed with RN, Chart reviewed Vitals/I&O Vitals/I&O: Vital Signs Date Time Temp Pulse Resp B/P (MAP) Pulse Ox O2 Delivery O2 Flow Rate FiO2 11/28/19 11:00 99.9 144 24 116/54 (74) 95 Room Air 99.9 11/28/19 05:00 2.0 I & O 11/27/19 11/27/19 11/28/19 15:00 23:00 07:00 Intake Total 45 ml 306 ml 691 ml Output Total 1125 ml 800 ml 820 ml Balance -1080 ml -494 ml -129 ml Physical Exam Physical Exam: GENERAL: Resting in bed, NAD HEENT: Pupils equal, oral cavity dry. OC/Op - Dry NECK: Tracheostomy - no JVD LUNGS: Diminished aeration bases, HEART: S1, S2, ABDOMEN: Less distended, mild- bowel sounds hypoactive, soft, GJ drain present, drainage bag in place with depedent drainage : Lind in place EXTREMITIES: Trace generalized edema, no cyanosis. Yeast in groin area SKIN: warm touch. No signs of rash. NEURO: - Alert and responsive RUE PICC site without signs of complications. PIV s clean EC fistula General: No acute distress Heart: Normal S1, Normal S2, Other Lungs: Clear Abdomen: Soft Extremities: No clubbing, No cyanosis, Other (Diffuse edema) Skin: No breakdown Labs Labs: Laboratory Tests Test 11/27/19 12:27 11/27/19 17:17 11/27/19 17:51 11/27/19 19:50 Glucose (Fingerstick) 163 mg/dL (70-99) 164 mg/dL (70-99) Phosphorus Level 2.7 mg/dL (2.6-4.7) Lactic Acid Level < 0.3 mmol/L (0.4-2.0) Test 11/27/19 23:01 11/28/19 03:00 11/28/19 09:45 Glucose (Fingerstick) 166 mg/dL (70-99) White Blood Count 23.1 x10^3/uL (4.0-11.0) Red Blood Count 3.29 x10^6/uL (3.50-5.40) Hemoglobin 9.3 g/dL (12.0-15.5) Hematocrit 29.2 % (36.0-47.0) Mean Corpuscular Volume 89 fL (79-100) Mean Corpuscular Hemoglobin 28 pg (25-35) Mean Corpuscular Hemoglobin Concent 32 g/dL (31-37) Red Cell Distribution Width 18.9 % (11.5-14.5) Platelet Count 620 x10^3/uL (140-400) Neutrophils (%) (Auto) 82 % (31-73) Lymphocytes (%) (Auto) 12 % (24-48) Monocytes (%) (Auto) 6 % (0-9) Eosinophils (%) (Auto) 0 % (0-3) Basophils (%) (Auto) 0 % (0-3) Neutrophils # (Auto) 18.9 x10^3/uL (1.8-7.7) Lymphocytes # (Auto) 2.9 x10^3/uL (1.0-4.8) Monocytes # (Auto) 1.3 x10^3/uL (0.0-1.1) Eosinophils # (Auto) 0.0 x10^3/uL (0.0-0.7) Basophils # (Auto) 0.1 x10^3/uL (0.0-0.2) Sodium Level 145 mmol/L (136-145) Potassium Level 5.6 mmol/L (3.5-5.1) Chloride Level 111 mmol/L (98-107) Carbon Dioxide Level 26 mmol/L (21-32) Anion Gap 8 (6-14) Blood Urea Nitrogen 35 mg/dL (7-20) Creatinine 1.2 mg/dL (0.6-1.0) Estimated GFR (Cockcroft-Gault) 47.7 Glucose Level 138 mg/dL (70-99) Calcium Level 9.1 mg/dL (8.5-10.1) Urine Collection Type Unknown Urine Color Hollie Urine Clarity Turbid Urine pH 5.0 (<5.0-8.0) Urine Specific [place] >=1.030 (1.000-1.030) Urine Protein 100 mg/dL (NEG-TRACE) Urine Glucose (UA) Negative mg/dL (NEG) Urine Ketones (Stick) Trace mg/dL (NEG) Urine Blood Large (NEG) Urine Nitrite Negative (NEG) Urine Bilirubin Negative (NEG) Urine Urobilinogen Dipstick 0.2 mg/dL (0.2 mg/dL) Urine Leukocyte Esterase Large (NEG) Urine RBC Field obscured /HPF (0-2) Urine WBC Tntc /HPF (0-4) Urine Bacteria Many /HPF (0-FEW) Urine Yeast Present /HPF Review of Systems Review of Systems: Pertinent as per HPI, otherwise 10 point review of systems is negative. Assessment and Plan Assessmemt and Plan Problems Medical Problems: (1) Acute pancreatitis Status: Acute (2) Cholelithiasis Status: Acute ASSESSMENT S/P Exp. 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 parapsilosis & PSAE 11/12 (I-merrem/ceftazidime/AZT/cefepime)) Leucocytosis Fevers, intermittent Acute gallstone pancreatitis with persistent necrosis Acute hypoxic Respiratory failure required mechanical ventilation Tracheostomy Bilateral pleural effusions/pulm edema s/p Throacentesis on 10/03/2019 HTN Intractable pain Intractable nausea Covid 19 negative Acute on chronic anemia Abd distention - U/S and CT reviewed s/p 0.4 L of opaque, debris-containing ascites was removed 08/23 Gallstone pancreatitis with necrosis. -CT A/P 09/23 showed multiple pseudocysts, slight larger on the right. s/p drains x 3, 09/24. + PSAE (MDRO-R Cefepime, Zosyn ALEXANDRA < 64) and yeast, -s/p drain 08/14. C. parapsilosis. s/p drain 08/23 + yeast & high amylase; s/p additional drain on 08/25. Drains removed. Ascites s/p paracentesis 08/02 & 08/23. C. parapsilosis JUANA. off HD. A large fluid collection in the pancreatic bed has slightly decreased in size, described below, the pancreas itself is difficult to visualize, which could be due to necrosis or obscuration of pancreatic parenchyma from the surrounding fluid collection.10/02 - 08/14 status post KAYLIN drain placement + C paropsilosis. s/p additional drains 08/25 Hypocalcemia Prediabetes s/p trach Hyperglycemia Severe protein-caloric malnutrition Extensive retroperitoneal fluid collections persist. Percutaneous drains remain within the collections in both paracolic gutters. These communicate with additional pelvic and peripancreatic collections. PLAN Cardiac monitoring Continue current care J tube feeds 60cc/hr G tube with suction Lind to BSD Wound care Trend labs DVT prophylaxis Full code Appreciate subspecialist input Prognosis extremely guarded Comment Review of Relevant I have reviewed the following items kolby (where applicable) has been applied. Medications: Current Medications Medications (Trade) Dose Ordered Sig/Yvon Route PRN Reason Start Time Stop Time Status Last Admin Dose Admin Metronidazole 100 ml @ 100 mls/hr Q12HR IV 11/28/19 10:00 11/28/19 10:04 Justicifation of Admission Dx: Justifications for Admission: Justification of Admission Dx: Yes BEBO KIRBY III DO Nov 28, 2019 12:09
[2019-11-28] MEDS: CEFEPIME HCL IV Push 2 GM VIAL. IVP SCH ×2 (12:35→20:26)
--- NOTE | 2019-11-28 12:36 | PDOC ---
SURGICAL PROGRESS NOTE DATE: 11/28/19 TIME: 12:35 Subjective up in chair working with therapy Vital Signs Vital Signs Date Time Temp Pulse Resp B/P (MAP) Pulse Ox O2 Delivery O2 Flow Rate FiO2 11/28/19 11:00 99.9 144 24 116/54 (74) 95 Room Air 99.9 11/28/19 05:00 2.0 I&O Intake and Output 11/28/19 07:00 Intake Total 1042 ml Output Total 2745 ml Balance -1703 ml Intake Oral 0 ml Tube Feeding 942 ml Other 100 ml Output Urine Total 175 ml Gastric Drainage Total 0 ml Drainage Total 2570 ml # Bowel Movements 5 General: Cooperative Abdomen: Soft Labs Laboratory Tests Test 11/26/19 18:29 11/27/19 02:33 11/27/19 05:20 11/27/19 07:44 Glucose (Fingerstick) 143 mg/dL (70-99) 119 mg/dL (70-99) 133 mg/dL (70-99) Sodium Level 143 mmol/L (136-145) Potassium Level 4.7 mmol/L (3.5-5.1) Chloride Level 109 mmol/L (98-107) Carbon Dioxide Level 28 mmol/L (21-32) Anion Gap 6 (6-14) Blood Urea Nitrogen 21 mg/dL (7-20) Creatinine 0.8 mg/dL (0.6-1.0) Estimated GFR (Cockcroft-Gault) 76.2 Glucose Level 160 mg/dL (70-99) Calcium Level 10.1 mg/dL (8.5-10.1) Magnesium Level 1.9 mg/dL (1.8-2.4) Vitamin B12 Level 1169 pg/mL (247-911) 25-Hydroxy Vitamin D Total 15.9 ng/mL (30-100) Test 11/27/19 12:27 11/27/19 17:17 11/27/19 17:51 11/27/19 19:50 Glucose (Fingerstick) 163 mg/dL (70-99) 164 mg/dL (70-99) Phosphorus Level 2.7 mg/dL (2.6-4.7) Lactic Acid Level < 0.3 mmol/L (0.4-2.0) Test 11/27/19 23:01 8/10/20 03:00 11/28/19 09:45 11/28/19 12:27 Glucose (Fingerstick) 166 mg/dL (70-99) 171 mg/dL (70-99) White Blood Count 23.1 x10^3/uL (4.0-11.0) Red Blood Count 3.29 x10^6/uL (3.50-5.40) Hemoglobin 9.3 g/dL (12.0-15.5) Hematocrit 29.2 % (36.0-47.0) Mean Corpuscular Volume 89 fL (79-100) Mean Corpuscular Hemoglobin 28 pg (25-35) Mean Corpuscular Hemoglobin Concent 32 g/dL (31-37) Red Cell Distribution Width 18.9 % (11.5-14.5) Platelet Count 620 x10^3/uL (140-400) Neutrophils (%) (Auto) 82 % (31-73) Lymphocytes (%) (Auto) 12 % (24-48) Monocytes (%) (Auto) 6 % (0-9) Eosinophils (%) (Auto) 0 % (0-3) Basophils (%) (Auto) 0 % (0-3) Neutrophils # (Auto) 18.9 x10^3/uL (1.8-7.7) Lymphocytes # (Auto) 2.9 x10^3/uL (1.0-4.8) Monocytes # (Auto) 1.3 x10^3/uL (0.0-1.1) Eosinophils # (Auto) 0.0 x10^3/uL (0.0-0.7) Basophils # (Auto) 0.1 x10^3/uL (0.0-0.2) Sodium Level 145 mmol/L (136-145) Potassium Level 5.6 mmol/L (3.5-5.1) Chloride Level 111 mmol/L (98-107) Carbon Dioxide Level 26 mmol/L (21-32) Anion Gap 8 (6-14) Blood Urea Nitrogen 35 mg/dL (7-20) Creatinine 1.2 mg/dL (0.6-1.0) Estimated GFR (Cockcroft-Gault) 47.7 Glucose Level 138 mg/dL (70-99) Calcium Level 9.1 mg/dL (8.5-10.1) Urine Collection Type Unknown Urine Color Hollie Urine Clarity Turbid Urine pH 5.0 (<5.0-8.0) Urine Specific [place] >=1.030 (1.000-1.030) Urine Protein 100 mg/dL (NEG-TRACE) Urine Glucose (UA) Negative mg/dL (NEG) Urine Ketones (Stick) Trace mg/dL (NEG) Urine Blood Large (NEG) Urine Nitrite Negative (NEG) Urine Bilirubin Negative (NEG) Urine Urobilinogen Dipstick 0.2 mg/dL (0.2 mg/dL) Urine Leukocyte Esterase Large (NEG) Urine RBC Field obscured /HPF (0-2) Urine WBC Tntc /HPF (0-4) Urine Bacteria Many /HPF (0-FEW) Urine Yeast Present /HPF Laboratory Tests Test 11/27/19 17:17 11/27/19 17:51 11/27/19 19:50 11/27/19 23:01 Glucose (Fingerstick) 164 mg/dL (70-99) 166 mg/dL (70-99) Phosphorus Level 2.7 mg/dL (2.6-4.7) Lactic Acid Level < 0.3 mmol/L (0.4-2.0) Test 11/28/19 03:00 11/28/19 09:45 11/28/19 12:27 White Blood Count 23.1 x10^3/uL (4.0-11.0) Red Blood Count 3.29 x10^6/uL (3.50-5.40) Hemoglobin 9.3 g/dL (12.0-15.5) Hematocrit 29.2 % (36.0-47.0) Mean Corpuscular Volume 89 fL (79-100) Mean Corpuscular Hemoglobin 28 pg (25-35) Mean Corpuscular Hemoglobin Concent 32 g/dL (31-37) Red Cell Distribution Width 18.9 % (11.5-14.5) Platelet Count 620 x10^3/uL (140-400) Neutrophils (%) (Auto) 82 % (31-73) Lymphocytes (%) (Auto) 12 % (24-48) Monocytes (%) (Auto) 6 % (0-9) Eosinophils (%) (Auto) 0 % (0-3) Basophils (%) (Auto) 0 % (0-3) Neutrophils # (Auto) 18.9 x10^3/uL (1.8-7.7) Lymphocytes # (Auto) 2.9 x10^3/uL (1.0-4.8) Monocytes # (Auto) 1.3 x10^3/uL (0.0-1.1) Eosinophils # (Auto) 0.0 x10^3/uL (0.0-0.7) Basophils # (Auto) 0.1 x10^3/uL (0.0-0.2) Sodium Level 145 mmol/L (136-145) Potassium Level 5.6 mmol/L (3.5-5.1) Chloride Level 111 mmol/L (98-107) Carbon Dioxide Level 26 mmol/L (21-32) Anion Gap 8 (6-14) Blood Urea Nitrogen 35 mg/dL (7-20) Creatinine 1.2 mg/dL (0.6-1.0) Estimated GFR (Cockcroft-Gault) 47.7 Glucose Level 138 mg/dL (70-99) Calcium Level 9.1 mg/dL (8.5-10.1) Urine Collection Type Unknown Urine Color Hollie Urine Clarity Turbid Urine pH 5.0 (<5.0-8.0) Urine Specific [place] >=1.030 (1.000-1.030) Urine Protein 100 mg/dL (NEG-TRACE) Urine Glucose (UA) Negative mg/dL (NEG) Urine Ketones (Stick) Trace mg/dL (NEG) Urine Blood Large (NEG) Urine Nitrite Negative (NEG) Urine Bilirubin Negative (NEG) Urine Urobilinogen Dipstick 0.2 mg/dL (0.2 mg/dL) Urine Leukocyte Esterase Large (NEG) Urine RBC Field obscured /HPF (0-2) Urine WBC Tntc /HPF (0-4) Urine Bacteria Many /HPF (0-FEW) Urine Yeast Present /HPF Glucose (Fingerstick) 171 mg/dL (70-99) Problem List Problems Medical Problems: (1) Acute pancreatitis Status: Acute (2) Cholelithiasis Status: Acute Assessment/Plan supportive care no additional surgical plans Justicifation of Admission Dx: Justifications for Admission: Justification of Admission Dx: Yes 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 PRE [employer] TEACHER Nov 28, 2019 12:36
[2019-11-28 15:00] VITALS: BP 101/56
[2019-11-28] MEDS: ACETAMINOPHEN 650 MG SUPP.RECT. PR PRN (15:43)
[2019-11-28] MEDS: IV NORMAL SALINE 1000ML BAG 1,000 ML IV SCH (18:37)
[2019-11-28 19:50] VITALS: BP 100/67
[2019-11-28 22:30] VITALS: BP 97/62
[2019-11-29] VITALS (15 sets, daily range): BP systolic 73–108; BP diastolic 32–69
[2019-11-29] MEDS: IPRATRPIUM/ALBUTEROL 0.5/2.5MG 3 ML NEBU. NEB SCH ×7 (00:40→23:55)
[2019-11-29] MEDS: ALPRAZolam 0.5 MG TABLET PO PRN ×2 (02:50→20:47)
[2019-11-29] MEDS: HYDROcodone/APAP 5/325MG 1 TAB TABLET PO PRN ×4 (02:51→20:47)
[2019-11-29] MEDS: INSULIN LISPRO 300 UNITS/3 ML VIAL. SQ SCH ×4 (06:00→18:00)
[2019-11-29 06:09] LABS: CALCIUM 8.2 mg/dL (8.5-10.1); CREATININE 1.8 mg/dL (0.6-1.0); GFR 29.9; POTASSIUM 5.9 mmol/L (3.5-5.1)
[2019-11-29] MEDS: ACETYLCYSTEINE 20% for RESP TX 600 MG/3 ML. NEB SCH ×2 (08:00→19:59)
[2019-11-29] MEDS: PANTOPRAZOLE IV PUSH 40 MG VIAL. IVP SCH (09:42)
[2019-11-29] MEDS: CEFEPIME HCL IV Push 2 GM VIAL. IVP SCH ×2 (09:43→20:31)
[2019-11-29] MEDS: IV NORMAL SALINE 1000ML BAG 1,000 ML IV SCH ×2 (09:55→20:47)
[2019-11-29] MEDS: METOPROLOL TARTRATE 5 MG/5 ML VIAL. IVP PRN (10:02)
--- NOTE | 2019-11-29 10:03 | PDOC ---
Date of Service: DATE: 11/29/19 TIME: 10:00 Objective: Objective: No new GI concerns per nurse. Vital Signs: Vital Signs Date Time Temp Pulse Resp B/P (MAP) Pulse Ox O2 Delivery O2 Flow Rate FiO2 11/29/19 08:14 100 Nasal Cannula 2.0 11/29/19 07:00 97.3 145 40 108/69 (82) 97.3 Labs: Laboratory Tests Test 11/28/19 12:27 11/28/19 18:38 11/29/19 00:25 11/29/19 05:30 Glucose (Fingerstick) 171 mg/dL 210 mg/dL 185 mg/dL Sodium Level 147 mmol/L Potassium Level 5.9 mmol/L Chloride Level 113 mmol/L Carbon Dioxide Level 25 mmol/L Anion Gap 9 Blood Urea Nitrogen 61 mg/dL Creatinine 1.8 mg/dL Estimated GFR (Cockcroft-Gault) 29.9 Glucose Level 209 mg/dL Calcium Level 8.2 mg/dL Test 11/29/19 05:34 Glucose (Fingerstick) 190 mg/dL BLOOD CULTURE Preliminary NO GROWTH AFTER 1 DAY PE: GEN: chronically ill HEART: tachycardic LUNGS: tachypneic on NC NEURO/PSYCH: sleeping, not awakened A/P: S/p pancreatic necrosectomy -- Continue support. Justicifation of Admission Dx: Justifications for Admission: Justification of Admission Dx: Yes CYNDEE FALCON Nov 29, 2019 10:03
[2019-11-29] MEDS: MULTIVITAMINS,THERAPEUTIC 5 ML ORAL LIQUID. PEG SCH (10:08)
[2019-11-29] MEDS: ENOXAPARIN 40 MG/0.4 ML SYRINGE. SQ SCH (10:09)
--- NOTE | 2019-11-29 10:26 | PDOC ---
Infectious Disease Note Subjective: Subjective Pt resting, says feeling ok, trach t max 102 T 99 this am Vital Signs: Vital Signs Vital Signs Date Time Temp Pulse Resp B/P (MAP) Pulse Ox O2 Delivery O2 Flow Rate FiO2 11/29/19 10:02 150 116/60 11/29/19 08:14 100 Nasal Cannula 2.0 11/29/19 07:00 97.3 40 97.3 Physical Exam: PHYSICAL EXAM GENERAL: Resting in bed, NAD HEENT: Pupils equal, oral cavity dry. OC/Op - Dry NECK: Tracheostomy - no JVD LUNGS: Diminished aeration bases, HEART: S1, S2, ABDOMEN: Less distended, mild- bowel sounds hypoactive, soft, GJ drain present, drainage bag in place with depedent drainage : Lind in place EXTREMITIES: Trace generalized edema, no cyanosis. Yeast in groin area SKIN: warm touch. No signs of rash. NEURO: - Alert and responsive RUE PICC site without signs of complications. PIV s clean EC fistula Medications: Inpatient Meds: Current Medications Medications (Trade) Dose Ordered Sig/Yvon Start Time Stop Time Status Last Admin Dose Admin Acetaminophen (Tylenol Supp) 650 mg PRN Q6HRS PRN 07/12/19 10:30 11/28/19 15:43 650 MG Acetaminophen (Tylenol) 650 mg PRN Q6HRS PRN 07/09/19 03:36 08/31/19 10:25 DC 08/04/19 19:56 650 MG Acetaminophen/ Hydrocodone Bitart (Lortab 5/325) 1 tab PRN Q4HRS PRN 11/10/19 16:00 11/29/19 06:53 1 TAB Acetylcysteine (Mucomyst 20% Resp Treatment) 600 mg RTBID 10/15/19 12:00 11/29/19 08:00 600 MG Albumin Human 500 ml @ 125 mls/hr PRN Q1HR PRN 10/18/19 15:45 11/21/19 09:52 DC Albuterol Sulfate (Ventolin Neb Soln) 2.5 mg 1X ONCE 07/05/19 22:30 07/05/19 22:31 DC 07/06/19 00:56 2.5 MG Albuterol/ Ipratropium (Duoneb) 3 ml Q4HRS 10/01/19 08:00 11/29/19 08:11 3 ML Alprazolam (Xanax) 0.5 mg PRN QID PRN 11/10/19 16:00 11/29/19 02:50 0.5 MG Alteplase, Recombinant (Cathflo For Central Catheter Clearance) 1 mg 1X ONCE 11/23/19 07:00 11/23/19 07:01 DC 11/23/19 09:30 1 MG Alteplase, Recombinant 4 mg/ Sodium Chloride 20 ml @ 20 mls/hr 1X ONCE 10/05/19 10:00 10/05/19 10:59 DC 10/05/19 10:09 20 MLS/HR Alteplase, Recombinant 5 mg/ Sodium Chloride 30 ml @ 30 mls/hr 1X PRN 11/23/19 06:45 UNV Amino Acids/ Glycerin/ Electrolytes 1,000 ml @ 80 mls/hr [id number] 11/13/19 10:15 11/20/19 07:07 DC 11/19/19 18:10 80 MLS/HR Artificial Tears (Artificial Tears) 1 drop PRN Q15MIN PRN 08/17/19 05:30 10/11/19 21:17 1 DROP Atenolol (Tenormin) 100 mg DAILY 07/05/19 09:00 07/04/19 20:08 DC Atropine Sulfate (ATROPINE 0.5mg SYRINGE) 0.5 mg PRN Q5MIN PRN 07/21/19 08:15 11/21/19 09:45 DC Barium Sulfate (Varibar Thin Liquid Apple) 148 gm 1X ONCE 09/13/19 11:45 09/13/19 11:49 DC Benzocaine (Hurricaine One) 1 spray 1X ONCE 07/08/19 14:30 07/08/19 14:31 DC 07/08/19 16:38 1 SPRAY Bisacodyl (Dulcolax Supp) 10 mg STK-MED ONCE 08/15/19 10:59 08/15/19 10:59 DC Bumetanide (Bumex) 2 mg DAILY 08/26/19 10:00 09/05/19 17:15 DC 09/05/19 08:07 2 MG Bupivacaine HCl/ Epinephrine Bitart (Sensorcain-Epi 0.5%-1:[id number] Mpf) 30 ml STK-MED ONCE 10/18/19 08:34 10/18/19 08:35 DC Calcitonin Sorrento (Miacalcin) 400 unit BID 11/24/19 18:00 11/25/19 15:56 DC 11/24/19 18:18 400 UNIT Calcium Carbonate/ Glycine (Tums) 500 mg PRN [id number] PRN 07/06/19 17:45 08/31/19 10:25 DC Calcium Chloride 1000 mg/Sodium Chloride 110 ml @ 220 mls/hr 1X ONCE 07/05/19 22:30 07/05/19 22:59 DC 07/05/19 22:11 220 MLS/HR Calcium Chloride 3000 mg/Sodium Chloride 1,030 ml @ 50 mls/hr [id number] 07/07/19 08:00 07/09/19 15:23 DC 07/09/19 02:17 50 MLS/HR Calcium Gluconate (Calcium Gluconate) 2,000 mg 1X ONCE 07/07/19 02:15 07/07/19 02:16 DC 07/07/19 02:19 2,000 MG Calcium Gluconate 1000 mg/Sodium Chloride 110 ml @ 220 mls/hr 1X ONCE 07/06/19 03:30 07/06/19 03:59 DC 07/06/19 03:21 220 MLS/HR Calcium Gluconate 2000 mg/Sodium Chloride 120 ml @ 220 mls/hr 1X ONCE 07/06/19 07:30 07/06/19 08:02 DC 07/06/19 09:05 220 MLS/HR Cefepime HCl (Maxipime) 2 gm Q12HR 11/28/19 10:00 11/29/19 09:43 2 GM Ceftazidime/ Avibactam 2.5 gm/ Sodium Chloride 250 ml @ 125 mls/hr Q8HRS 11/10/19 08:00 11/23/19 08:20 DC 11/23/19 05:38 125 MLS/HR Cellulose (Surgicel Fibrillar 1x2) 1 each STK-MED ONCE 07/25/19 11:00 07/25/19 11:01 DC Cellulose (Surgicel Hemostat 2x14) 1 each STK-MED ONCE 08/15/19 10:58 08/15/19 10:59 DC Cellulose (Surgicel Hemostat 4x8) 1 each STK-MED ONCE 08/15/19 10:58 08/15/19 10:59 DC Chlorhexidine Gluconate (Peridex) 15 ml BID 10/01/19 09:00 10/01/19 07:58 DC Ciprofloxacin/ Dextrose 200 ml @ 200 mls/hr Q12HR 10/30/19 10:00 11/08/19 08:20 DC 11/07/19 21:02 200 MLS/HR Cyclobenzaprine HCl (Flexeril) 10 mg PRN Q6HRS PRN 08/18/19 10:45 11/26/19 20:50 10 MG Daptomycin 410 mg/ Sodium Chloride 50 ml @ 100 mls/hr Q24H 09/25/19 14:00 09/28/19 08:30 DC 09/27/19 13:33 100 MLS/HR Daptomycin 430 mg/ Sodium Chloride 50 ml @ 100 mls/hr Q24H 08/13/19 13:00 08/18/19 20:58 DC 08/18/19 13:00 100 MLS/HR Daptomycin 450 mg/ Sodium Chloride 50 ml @ 100 mls/hr Q24H 09/04/19 09:00 09/08/19 08:30 DC 09/07/19 09:25 100 MLS/HR Daptomycin 485 mg/ Sodium Chloride 50 ml @ 100 mls/hr Q24H 08/22/19 11:00 08/30/19 07:44 DC 08/29/19 13:10 100 MLS/HR Daptomycin 500 mg/ Sodium Chloride 50 ml @ 100 mls/hr Q24H 11/13/19 09:00 11/23/19 08:20 DC 11/22/19 09:20 100 MLS/HR Desflurane (Suprane) 90 ml STK-MED ONCE 10/18/19 10:18 10/18/19 10:19 DC Dexamethasone Sodium Phosphate (Decadron) 4 mg STK-MED ONCE 08/15/19 10:56 08/15/19 10:57 DC Dexmedetomidine HCl 400 mcg/ Sodium Chloride 100 ml @ 0 mls/hr CONT PRN 07/21/19 08:15 09/17/19 18:31 DC 09/17/19 12:57 8 MLS/HR Dextrose (Dextrose 50%-Water Syringe) 12.5 gm PRN Q15MIN PRN 07/04/19 09:30 Digoxin (Lanoxin) 125 mcg 1X ONCE 07/07/19 18:00 07/07/19 18:01 DC 07/07/19 17:10 125 MCG Diphenhydramine HCl (Benadryl) 25 mg 1X ONCE 11/03/19 19:00 11/03/19 19:01 DC 11/03/19 18:56 25 MG Duloxetine HCl (Cymbalta) 30 mg DAILY 08/28/19 14:00 08/31/19 10:25 DC 08/29/19 09:48 30 MG Enoxaparin Sodium (Lovenox 100mg Syringe) 100 mg Q12HR 08/09/19 21:00 UNV Enoxaparin Sodium (Lovenox 40mg Syringe) 40 mg Q24H 10/19/19 08:00 11/29/19 10:09 40 MG Ephedrine Sulfate (ePHEDrine PF IN SALINE SYRINGE) 50 mg STK-MED ONCE 10/18/19 14:45 10/18/19 14:45 DC Etomidate (Amidate) 8 mg 1X ONCE 07/11/19 08:30 07/11/19 08:31 DC 07/11/19 08:33 8 MG Fentanyl (Duragesic 12mcg/ Hr Patch) 1 patch Q3DAYS 10/28/19 09:00 11/27/19 09:09 1 PATCH Fentanyl (Duragesic 50mcg/ Hr Patch) 1 patch Q72H 09/22/19 21:00 10/01/19 12:00 DC 09/22/19 21:22 1 PATCH Fentanyl Citrate (Fentanyl 2ml Vial) 100 mcg STK-MED ONCE 11/22/19 15:03 11/22/19 15:03 DC Fentanyl Citrate (Fentanyl 5ml Vial) 250 mcg 1X ONCE 08/26/19 09:15 08/26/19 09:16 DC 08/26/19 09:30 50 MCG Flumazenil (Romazicon) 0.5 mg STK-MED ONCE 09/25/19 14:48 09/25/19 14:48 DC Fluoxetine HCl (PROzac) 20 mg QHS 09/22/19 21:00 11/28/19 20:26 20 MG Furosemide (Lasix) 40 mg [id number] 11/24/19 09:00 11/24/19 14:01 DC 11/24/19 13:51 40 MG Haloperidol Lactate (Haldol Inj) 3 mg 1X ONCE 08/22/19 14:30 08/22/19 14:31 DC 08/22/19 14:37 3 MG Heparin Sodium (Porcine) (Hep Lock Adult) 500 unit STK-MED ONCE 07/26/19 09:29 07/26/19 09:30 DC Heparin Sodium (Porcine) (Heparin Sodium) 5,000 unit Q12HR 08/15/19 21:00 08/25/19 09:59 DC 08/24/19 20:57 5,000 UNIT Heparin Sodium (Porcine) 1000 unit/Sodium Chloride 1,001 ml @ 1,001 mls/hr 1X ONCE 10/18/19 06:00 10/18/19 06:59 DC Hydromorphone HCl (Dilaudid Standard CATCHER PLUG) 12 mg STK-MED ONCE 08/19/19 15:50 08/30/19 11:24 DC Hydromorphone HCl (Dilaudid) 1 mg PRN Q4HRS PRN 08/22/19 19:00 09/05/19 17:10 DC 09/05/19 06:25 1 MG Info (CONTRAST GIVEN -- Rx MONITORING) 1 each PRN DAILY PRN 11/08/19 11:45 11/10/19 11:44 DC Info (Icu Electrolyte Protocol) 1 ea CONT PRN PRN 07/17/19 13:15 Info (PHARMACY MONITORING -- do not chart) 1 each PRN DAILY PRN 08/12/19 15:45 09/13/19 14:14 DC Info (Tpn Per Pharmacy) 1 each PRN DAILY PRN 07/06/19 12:30 UNV Insulin Human Lispro (HumaLOG) 0-9 UNITS Q6HRS 07/04/19 09:30 11/28/19 19:01 3 UNITS Insulin Human Regular (HumuLIN R VIAL) 5 unit 1X ONCE 07/05/19 22:30 07/05/19 22:31 DC 07/05/19 22:14 5 UNIT Iohexol (Omnipaque 240 Mg/ml) 10 ml 1X ONCE 11/22/19 15:45 11/22/19 15:46 DC 11/22/19 15:00 10 ML Iohexol (Omnipaque 300 Mg/ml) 50 ml 1X ONCE 11/15/19 11:00 11/15/19 11:01 DC Iohexol (Omnipaque 350 Mg/ml) 90 ml 1X ONCE 07/04/19 03:30 07/04/19 03:31 DC 07/04/19 03:25 90 ML Ketorolac Tromethamine (Toradol 30mg Vial) 30 mg 1X ONCE 07/04/19 03:00 07/04/19 03:01 DC 07/04/19 02:54 30 MG Lidocaine HCl (Buffered Lidocaine 1%) 5 ml 1X ONCE 11/22/19 15:45 11/22/19 15:46 DC 11/22/19 15:00 5 ML Lidocaine HCl (Glydo (Lidocaine) Jelly) 1 ramu 1X ONCE 07/08/19 14:30 07/08/19 14:31 DC 07/08/19 16:38 1 RAMU Lidocaine HCl (Lidocaine 1% 20ml Vial) 20 ml 1X ONCE 09/25/19 15:00 09/25/19 15:01 DC 09/25/19 15:30 20 ML Lidocaine HCl (Lidocaine Pf 2% Vial) 5 ml STK-MED ONCE 10/18/19 07:44 10/18/19 07:44 DC Lidocaine HCl (Xylocaine-Mpf 1% 2ml Vial) 2 ml PRN 1X PRN 08/15/19 07:00 08/16/19 06:59 DC Linezolid/Dextrose 300 ml @ 300 mls/hr Q12HR 09/04/19 09:00 09/07/19 08:11 DC 09/06/19 21:08 300 MLS/HR Lorazepam (Ativan Inj) 0.25 mg PRN Q4HRS PRN 09/21/19 07:30 11/29/19 09:54 0.25 MG Magnesium Sulfate 50 ml @ 25 mls/hr 1X ONCE 10/18/19 16:30 10/18/19 18:29 DC 10/18/19 17:02 25 MLS/HR Meropenem 1 gm/ Sodium Chloride 100 ml @ 200 mls/hr Q12HR 09/25/19 21:00 10/13/19 08:56 DC 10/13/19 08:27 200 MLS/HR Meropenem 500 mg/ Sodium Chloride 50 ml @ 100 mls/hr Q6HRS 10/16/19 18:00 11/08/19 08:23 DC 11/08/19 06:15 100 MLS/HR Methylprednisolone Sodium Succinate (SOLU-Medrol 125MG VIAL) 125 mg 1X ONCE 10/01/19 06:15 10/01/19 06:16 DC 10/01/19 06:26 125 MG Metoclopramide HCl (Reglan Vial) 10 mg PRN Q3HRS PRN 08/27/19 16:45 09/01/19 04:25 10 MG Metoprolol Tartrate (Lopressor Vial) 5 mg 1X ONCE 11/27/19 10:45 11/27/19 10:46 DC 11/27/19 10:54 5 MG Metronidazole 100 ml @ 100 mls/hr Q12HR 11/28/19 10:00 11/29/19 09:52 100 MLS/HR Micafungin Sodium 100 mg/Dextrose 100 ml @ 100 mls/hr Q24H 10/18/19 08:30 11/23/19 08:20 DC 11/22/19 09:30 100 MLS/HR Midazolam HCl (Versed) 2 mg 1X ONCE 09/25/19 15:00 09/25/19 15:01 DC 09/25/19 15:28 1 MG Midazolam HCl 100 mg/Sodium Chloride 100 ml @ 1 mls/hr CONT PRN 10/18/19 14:45 11/21/19 09:45 DC 10/21/19 18:48 10 MLS/HR Midazolam HCl 50 mg/Sodium Chloride 50 ml @ 0 mls/hr CONT PRN 07/11/19 08:15 07/16/19 15:59 DC 07/14/19 22:39 7 MLS/HR Morphine Sulfate (Morphine Sulfate) 1 mg PRN Q1HR PRN 10/18/19 14:45 11/21/19 09:45 DC 11/12/19 18:28 1 MG Multi-Ingred Cream/Lotion/Oil/ Oint (Artificial Tears Eye Ointment) 1 ramu PRN Q1HR PRN 07/13/19 17:30 09/21/19 14:39 DC 08/01/19 08:19 1 RAMU Multivitamins/ Minerals Therapeutic (Centrum Multivit-Mineral Liq) 5 ml DAILY 11/23/19 09:00 11/29/19 10:08 5 ML Naloxone HCl (Narcan) 0.4 mg PRN Q2MIN PRN 10/18/19 14:45 11/21/19 09:45 DC Norepinephrine Bitartrate 8 mg/ Dextrose 258 ml @ 13.332 mls/ hr CONT PRN 09/25/19 06:30 11/21/19 09:45 DC 10/20/19 09:09 1.6 MLS/HR Ondansetron HCl (Zofran) 4 mg STK-MED ONCE 10/18/19 13:33 10/18/19 13:33 DC Pantoprazole Sodium (PROTONIX VIAL for IV PUSH) 40 mg DAILYAC 07/04/19 11:30 11/29/19 09:42 40 MG Phenylephrine HCl (Brayden-Synephrine Inj) 10 mg STK-MED ONCE 10/18/19 13:33 10/18/19 13:33 DC Phenylephrine HCl (PHENYLEPHRINE in 0.9% NACL PF) 1 mg STK-MED ONCE 10/18/19 14:44 10/18/19 14:45 DC Piperacillin Sod/ Tazobactam Sod 3.375 gm/Sodium Chloride 50 ml @ 100 mls/hr Q6HRS 09/14/19 12:00 09/22/19 07:26 DC 09/22/19 06:10 100 MLS/HR Piperacillin Sod/ Tazobactam Sod 4.5 gm/Sodium Chloride 100 ml @ 200 mls/hr 1X ONCE 07/04/19 06:00 07/04/19 06:29 DC 07/04/19 05:44 200 MLS/HR Potassium Chloride 110 meq/ Magnesium Sulfate 20 meq/ Multivitamins 10 ml/Chromium/ Copper/Manganese/ Seleni/Zn 1 ml/ Insulin Human Regular 15 unit/ Total Parenteral Nutrition/Amino Acids/Dextrose/ Fat Emulsion Intravenous 1,800 ml @ 75 mls/hr TPN CONT 09/11/19 22:00 09/12/19 21:59 DC 09/11/19 22:48 75 MLS/HR Potassium Chloride 15 meq/ Bicarbonate Dialysis Soln w/ out KCl 5,007.5 ml @ 1,000 mls/ hr Q5H1M 07/17/19 20:00 07/21/19 13:08 DC 07/20/19 18:14 1,000 MLS/HR Potassium Chloride 20 meq/ Bicarbonate Dialysis Soln w/ out KCl 5,010 ml @ 1,000 mls/hr Q5H1M 07/13/19 16:00 07/17/19 19:59 DC 07/17/19 14:54 1,000 MLS/HR Potassium Chloride 40 meq/ Potassium Acetate 60 meq/Magnesium Sulfate 10 meq/ Multivitamins 10 ml/Chromium/ Copper/Manganese/ Seleni/Zn 1 ml/ Insulin Human Regular 20 unit/ Total Parenteral Nutrition/Amino Acids/Dextrose/ Fat Emulsion Intravenous 1,800 ml @ 75 mls/hr TPN CONT 09/22/19 22:00 09/23/19 21:59 DC 09/23/19 00:03 75 MLS/HR Potassium Chloride 70 meq/ Magnesium Sulfate 20 meq/ Multivitamins 10 ml/Chromium/ Copper/Manganese/ Seleni/Zn 1 ml/ Insulin Human Regular 15 unit/ Total Parenteral Nutrition/Amino Acids/Dextrose/ Fat Emulsion Intravenous 1,800 ml @ 75 mls/hr TPN CONT 09/16/19 22:00 09/17/19 21:59 DC 09/16/19 23:13 75 MLS/HR Potassium Chloride 75 meq/ Magnesium Sulfate 15 meq/ Multivitamins 10 ml/Chromium/ Copper/Manganese/ Seleni/Zn 0.5 ml/ Insulin Human Regular 15 unit/ Total Parenteral Nutrition/Amino Acids/Dextrose/ Fat Emulsion Intravenous 1,920 ml @ 80 mls/hr TPN CONT 08/27/19 22:00 08/28/19 21:59 DC 08/27/19 22:41 80 MLS/HR Potassium Chloride 75 meq/ Magnesium Sulfate 15 meq/Calcium Gluconate 8 meq/ Multivitamins 10 ml/Chromium/ Copper/Manganese/ Seleni/Zn 0.5 ml/ Insulin Human Regular 15 unit/ Total Parenteral Nutrition/Amino Acids/Dextrose/ Fat Emulsion Intravenous 1,920 ml @ 80 mls/hr TPN CONT 08/25/19 22:00 08/26/19 21:59 DC 08/25/19 22:28 80 MLS/HR Potassium Chloride 75 meq/ Magnesium Sulfate 15 meq/Calcium Gluconate 8 meq/ Multivitamins 10 ml/Chromium/ Copper/Manganese/ Seleni/Zn 0.5 ml/ Insulin Human Regular 20 unit/ Total Parenteral Nutrition/Amino Acids/Dextrose/ Fat Emulsion Intravenous 1,920 ml @ 80 mls/hr TPN CONT 08/24/19 22:00 08/25/19 21:59 DC 08/24/19 22:00 80 MLS/HR Potassium Chloride 75 meq/ Magnesium Sulfate 15 meq/Calcium Gluconate 8 meq/ Multivitamins 10 ml/Chromium/ Copper/Manganese/ Seleni/Zn 0.5 ml/ Insulin Human Regular 25 unit/ Total Parenteral Nutrition/Amino Acids/Dextrose/ Fat Emulsion Intravenous 1,920 ml @ 80 mls/hr TPN CONT 08/22/19 22:00 08/23/19 21:59 DC 08/22/19 23:08 80 MLS/HR Potassium Chloride 75 meq/ Magnesium Sulfate 20 meq/Calcium Gluconate 10 meq/ Multivitamins 10 ml/Chromium/ Copper/Manganese/ Seleni/Zn 0.5 ml/ Insulin Human Regular 25 unit/ Total Parenteral Nutrition/Amino Acids/Dextrose/ Fat Emulsion Intravenous 1,920 ml @ 80 mls/hr TPN CONT 08/21/19 22:00 08/22/19 21:59 DC 08/21/19 22:04 80 MLS/HR Potassium Chloride 75 meq/ Magnesium Sulfate 20 meq/Calcium Gluconate 10 meq/ Multivitamins 10 ml/Chromium/ Copper/Manganese/ Seleni/Zn 0.5 ml/ Insulin Human Regular 30 unit/ Total Parenteral Nutrition/Amino Acids/Dextrose/ Fat Emulsion Intravenous 1,920 ml @ 80 mls/hr TPN CONT 08/20/19 22:00 08/21/19 22:00 DC 08/20/19 21:51 80 MLS/HR Potassium Chloride 80 meq/ Magnesium Sulfate 20 meq/ Multivitamins 10 ml/Chromium/ Copper/Manganese/ Seleni/Zn 0.5 ml/ Insulin Human Regular 15 unit/ Total Parenteral Nutrition/Amino Acids/Dextrose/ Fat Emulsion Intravenous 1,920 ml @ 80 mls/hr TPN CONT 08/30/19 22:00 08/31/19 21:59 DC 08/30/19 21:40 80 MLS/HR Potassium Chloride 80 meq/ Magnesium Sulfate 20 meq/ Multivitamins 10 ml/Chromium/ Copper/Manganese/ Seleni/Zn 1 ml/ Insulin Human Regular 15 unit/ Total Parenteral Nutrition/Amino Acids/Dextrose/ Fat Emulsion Intravenous 1,800 ml @ 75 mls/hr TPN CONT 09/18/19 22:00 09/19/19 21:59 DC 09/18/19 21:54 75 MLS/HR Potassium Chloride 90 meq/ Magnesium Sulfate 20 meq/ Multivitamins 10 ml/Chromium/ Copper/Manganese/ Seleni/Zn 1 ml/ Insulin Human Regular 15 unit/ Total Parenteral Nutrition/Amino Acids/Dextrose/ Fat Emulsion Intravenous 1,800 ml @ 75 mls/hr TPN CONT 09/07/19 22:00 09/08/19 21:59 DC 09/07/19 22:28 75 MLS/HR Potassium Chloride 90 meq/ Magnesium Sulfate 20 meq/ Multivitamins 10 ml/Chromium/ Copper/Manganese/ Seleni/Zn 1 ml/ Insulin Human Regular 20 unit/ Total Parenteral Nutrition/Amino Acids/Dextrose/ Fat Emulsion Intravenous 1,800 ml @ 75 mls/hr TPN CONT 09/21/19 22:00 09/22/19 21:59 DC 09/21/19 23:13 75 MLS/HR Potassium Chloride/Water 100 ml @ 100 mls/hr Q1H 10/05/19 08:00 10/05/19 09:59 DC 10/05/19 09:12 100 MLS/HR Potassium Phosphate 20 mmol/ Sodium Chloride 106.6667 ml @ 51.667 m... 1X ONCE 07/13/19 13:00 07/13/19 15:03 DC 07/13/19 12:51 51.667 MLS/HR Potassium Acetate 30 meq/Magnesium Sulfate 14 meq/ Multivitamins 10 ml/Chromium/ Copper/Manganese/ Seleni/Zn 1 ml/ Insulin Human Regular 15 unit/ Sodium Chloride 20 meq/Potassium Chloride 30 meq/ Total Parenteral Nutrition/Amino Acids/Dextrose/ Fat Emulsion Intravenous 1,920 ml @ 80 mls/hr TPN CONT 10/11/19 22:00 10/12/19 21:59 DC 10/11/19 21:46 80 MLS/HR Potassium Acetate 30 meq/Magnesium Sulfate 20 meq/ Calcium Gluconate 10 meq/ Multivitamins 10 ml/Chromium/ Copper/Manganese/ Seleni/Zn 0.5 ml/ Insulin Human Regular 30 unit/ Potassium Chloride 30 meq/ Total Parenteral Nutrition/Amino Acids/Dextrose/ Fat Emulsion Intravenous 1,920 ml @ 80 mls/hr TPN CONT 08/19/19 22:00 08/20/19 21:59 DC 08/19/19 22:34 80 MLS/HR Potassium Acetate 40 meq/Magnesium Sulfate 10 meq/ Multivitamins 10 ml/Chromium/ Copper/Manganese/ Seleni/Zn 1 ml/ Insulin Human Regular 20 unit/ Total Parenteral Nutrition/Amino Acids/Dextrose/ Fat Emulsion Intravenous 1,920 ml @ 80 mls/hr TPN CONT 10/04/19 22:00 10/05/19 21:59 DC 10/04/19 21:32 80 MLS/HR Potassium Acetate 40 meq/Magnesium Sulfate 5 meq/ Multivitamins 10 ml/Chromium/ Copper/Manganese/ Seleni/Zn 1 ml/ Insulin Human Regular 30 unit/ Total Parenteral Nutrition/Amino Acids/Dextrose/ Fat Emulsion Intravenous 1,920 ml @ 80 mls/hr TPN CONT 10/03/19 22:00 10/04/19 19:34 DC 10/03/19 21:54 80 MLS/HR Potassium Acetate 55 meq/Magnesium Sulfate 20 meq/ Calcium Gluconate 10 meq/ Multivitamins 10 ml/Chromium/ Copper/Manganese/ Seleni/Zn 0.5 ml/ Insulin Human Regular 30 unit/ Total Parenteral Nutrition/Amino Acids/Dextrose/ Fat Emulsion Intravenous 1,920 ml @ 80 mls/hr TPN CONT 08/18/19 22:00 08/19/19 21:59 DC 08/19/19 01:00 80 MLS/HR Potassium Acetate 55 meq/Magnesium Sulfate 20 meq/ Calcium Gluconate 10 meq/ Multivitamins 10 ml/Chromium/ Copper/Manganese/ Seleni/Zn 0.5 ml/ Insulin Human Regular 35 unit/ Total Parenteral Nutrition/Amino Acids/Dextrose/ Fat Emulsion Intravenous 1,920 ml @ 80 mls/hr TPN CONT 08/16/19 22:00 08/17/19 21:59 DC 08/16/19 22:02 80 MLS/HR Potassium Acetate 60 meq/Magnesium Sulfate 10 meq/ Multivitamins 10 ml/Chromium/ Copper/Manganese/ Seleni/Zn 1 ml/ Insulin Human Regular 20 unit/ Total Parenteral Nutrition/Amino Acids/Dextrose/ Fat Emulsion Intravenous 1,920 ml @ 80 mls/hr TPN CONT 10/05/19 22:00 10/06/19 21:59 DC 10/05/19 21:55 80 MLS/HR Potassium Acetate 60 meq/Magnesium Sulfate 14 meq/ Multivitamins 10 ml/Chromium/ Copper/Manganese/ Seleni/Zn 1 ml/ Insulin Human Regular 15 unit/ Sodium Chloride 20 meq/Total Parenteral Nutrition/Amino Acids/Dextrose/ Fat Emulsion Intravenous 1,920 ml @ 80 mls/hr TPN CONT 10/10/19 22:00 10/11/19 21:59 DC 10/10/19 21:54 80 MLS/HR Potassium Acetate 60 meq/Magnesium Sulfate 14 meq/ Multivitamins 10 ml/Chromium/ Copper/Manganese/ Seleni/Zn 1 ml/ Insulin Human Regular 15 unit/ Total Parenteral Nutrition/Amino Acids/Dextrose/ Fat Emulsion Intravenous 1,920 ml @ 80 mls/hr TPN CONT 10/09/19 22:00 10/10/19 21:59 DC 10/09/19 22:22 80 MLS/HR Potassium Acetate 60 meq/Magnesium Sulfate 14 meq/ Multivitamins 10 ml/Chromium/ Copper/Manganese/ Seleni/Zn 1 ml/ Insulin Human Regular 20 unit/ Total Parenteral Nutrition/Amino Acids/Dextrose/ Fat Emulsion Intravenous 1,920 ml @ 80 mls/hr TPN CONT 10/06/19 22:00 10/07/19 21:59 DC 10/06/19 22:26 80 MLS/HR Potassium Acetate 60 meq/Magnesium Sulfate 5 meq/ Multivitamins 10 ml/Chromium/ Copper/Manganese/ Seleni/Zn 1 ml/ Insulin Human Regular 30 unit/ Total Parenteral Nutrition/Amino Acids/Dextrose/ Fat Emulsion Intravenous 1,920 ml @ 80 mls/hr TPN CONT 09/24/19 22:00 09/25/19 21:59 DC 09/24/19 21:54 80 MLS/HR Potassium Acetate 65 meq/Magnesium Sulfate 20 meq/ Calcium Gluconate 10 meq/ Multivitamins 10 ml/Chromium/ Copper/Manganese/ Seleni/Zn 0.5 ml/ Insulin Human Regular 30 unit/ Total Parenteral Nutrition/Amino Acids/Dextrose/ Fat Emulsion Intravenous 1,920 ml @ 80 mls/hr TPN CONT 08/17/19 22:00 08/18/19 21:59 DC 08/17/19 22:22 80 MLS/HR Potassium Acetate 80 meq/Magnesium Sulfate 5 meq/ Multivitamins 10 ml/Chromium/ Copper/Manganese/ Seleni/Zn 1 ml/ Insulin Human Regular 20 unit/ Total Parenteral Nutrition/Amino Acids/Dextrose/ Fat Emulsion Intravenous 1,920 ml @ 80 mls/hr TPN CONT 09/23/19 22:00 09/24/19 21:59 DC 09/23/19 21:59 80 MLS/HR Prochlorperazine Edisylate (Compazine) 5 mg PACU PRN PRN 08/15/19 07:00 08/16/19 06:59 DC Propofol (Diprivan) 200 mg STK-MED ONCE 10/18/19 07:44 10/18/19 07:44 DC Ringer's Solution 1,000 ml @ 30 mls/hr Q24H 08/15/19 07:00 08/15/19 18:59 DC Rocuronium [place] (Zemuron) 100 mg STK-MED ONCE 10/18/19 07:44 10/18/19 07:44 DC Saliva Substitute (Biotene Moisturizing Mouth) 2 spray PRN Q15MIN PRN 09/08/19 11:00 Sevoflurane (Ultane) 60 ml STK-MED ONCE 08/15/19 12:26 08/15/19 12:27 DC Sodium Bicarbonate 150 meq/Dextrose 1,150 ml @ 75 mls/hr 1X ONCE 10/18/19 16:30 10/19/19 07:49 DC 10/18/19 20:02 75 MLS/HR Sodium Bicarbonate 50 meq/Sodium Chloride 1,050 ml @ 75 mls/hr Q14H 07/06/19 07:30 07/11/19 10:28 DC 07/10/19 21:10 75 MLS/HR Sodium Acetate 50 meq/Potassium Acetate 55 meq/ Magnesium Sulfate 20 meq/Calcium Gluconate 10 meq/ Multivitamins 10 ml/Chromium/ Copper/Manganese/ Seleni/Zn 0.5 ml/ Insulin Human Regular 35 unit/ Total Parenteral Nutrition/Amino Acids/Dextrose/ Fat Emulsion Intravenous 1,800 ml @ 75 mls/hr TPN CONT 08/13/19 22:00 08/14/19 21:59 DC 08/13/19 22:03 75 MLS/HR Sodium Bicarbonate (Sodium Bicarb Adult 8.4% Syr) 100 meq 1X ONCE 10/18/19 16:30 10/18/19 16:31 DC 10/18/19 17:07 100 MEQ Sodium Chloride 1,000 ml @ 75 mls/hr [id number] 11/28/19 18:45 11/29/19 09:55 75 MLS/HR Sodium Chloride (Normal Saline Flush) 3 ml QSHIFT PRN 10/18/19 14:45 11/21/19 09:45 DC Sodium Chloride 80 meq/Potassium Chloride 30 meq/ Potassium Acetate 30 meq/Magnesium Sulfate 14 meq/ Multivitamins 10 ml/Chromium/ Copper/Manganese/ Seleni/Zn 1 ml/ Insulin Human Regular 15 unit/ Total Parenteral Nutrition/Amino Acids/Dextrose/ Fat Emulsion Intravenous 1,920 ml @ 80 mls/hr TPN CONT 10/19/19 22:00 10/20/19 21:59 DC 10/19/19 23:05 80 MLS/HR Sodium Chloride 90 meq/Calcium Gluconate 10 meq/ Multivitamins 10 ml/Chromium/ Copper/Manganese/ Seleni/Zn 0.5 ml/ Total Parenteral Nutrition/Amino Acids/Dextrose/ Fat Emulsion Intravenous 1,512 ml @ 63 mls/hr TPN CONT 07/06/19 22:00 07/07/19 21:59 DC 07/06/19 22:06 63 MLS/HR Sodium Chloride 90 meq/Calcium Gluconate 10 meq/ Multivitamins 10 ml/Chromium/ Copper/Manganese/ Seleni/Zn 1 ml/ Total Parenteral Nutrition/Amino Acids/Dextrose/ Fat Emulsion Intravenous 55.005 ml @ 2.292 mls/hr TPN CONT 07/06/19 22:00 07/06/19 12:33 DC Sodium Chloride 90 meq/Magnesium Sulfate 10 meq/ Calcium Gluconate 20 meq/ Multivitamins 10 ml/Chromium/ Copper/Manganese/ Seleni/Zn 0.5 ml/ Total Parenteral Nutrition/Amino Acids/Dextrose/ Fat Emulsion Intravenous 1,512 ml @ 63 mls/hr TPN CONT 07/07/19 22:00 07/08/19 21:59 DC 07/07/19 22:25 63 MLS/HR Sodium Chloride 90 meq/Magnesium Sulfate 12 meq/ Calcium Gluconate 15 meq/ Multivitamins 10 ml/Chromium/ Copper/Manganese/ Seleni/Zn 0.5 ml/ Insulin Human Regular 25 unit/ Total Parenteral Nutrition/Amino Acids/Dextrose/ Fat Emulsion Intravenous 1,400 ml @ 58.333 mls/ hr TPN CONT 07/27/19 22:00 07/28/19 21:59 DC 07/27/19 21:41 58.333 MLS/HR Sodium Chloride 90 meq/Potassium Chloride 15 meq/ Magnesium Sulfate 12 meq/Calcium Gluconate 15 meq/ Multivitamins 10 ml/Chromium/ Copper/Manganese/ Seleni/Zn 0.5 ml/ Insulin Human Regular 25 unit/ Total Parenteral Nutrition/Amino Acids/Dextrose/ Fat Emulsion Intravenous 1,400 ml @ 58.333 mls/ hr TPN CONT 07/26/19 22:00 07/27/19 21:59 DC 07/26/19 22:13 58.333 MLS/HR Sodium Chloride 90 meq/Potassium Chloride 15 meq/ Potassium Phosphate 10 mmol/ Magnesium Sulfate 8 meq/Calcium Gluconate 15 meq/ Multivitamins 10 ml/Chromium/ Copper/Manganese/ Seleni/Zn 0.5 ml/ Insulin Human Regular 25 unit/ Total Parenteral Nutrition/Amino Acids/Dextrose/ Fat Emulsion Intravenous 1,400 ml @ 58.333 mls/ hr TPN CONT 07/24/19 22:00 07/25/19 21:59 DC 07/24/19 21:20 58.333 MLS/HR Sodium Chloride 90 meq/Potassium Chloride 15 meq/ Potassium Phosphate 10 mmol/ Magnesium Sulfate 10 meq/Calcium Gluconate 20 meq/ Multivitamins 10 ml/Chromium/ Copper/Manganese/ Seleni/Zn 0.5 ml/ Total Parenteral Nutrition/Amino Acids/Dextrose/ Fat Emulsion Intravenous 1,400 ml @ 58.333 mls/ hr TPN CONT 07/11/19 22:00 07/12/19 21:59 DC 07/11/19 21:42 58.333 MLS/HR Sodium Chloride 90 meq/Potassium Chloride 15 meq/ Potassium Phosphate 10 mmol/ Magnesium Sulfate 12 meq/Calcium Gluconate 15 meq/ Multivitamins 10 ml/Chromium/ Copper/Manganese/ Seleni/Zn 0.5 ml/ Insulin Human Regular 25 unit/ Total Parenteral Nutrition/Amino Acids/Dextrose/ Fat Emulsion Intravenous 1,400 ml @ 58.333 mls/ hr TPN CONT 07/25/19 22:00 07/26/19 21:59 DC 07/25/19 22:24 58.333 MLS/HR Sodium Chloride 90 meq/Potassium Chloride 15 meq/ Potassium Phosphate 15 mmol/ Magnesium Sulfate 10 meq/Calcium Gluconate 15 meq/ Multivitamins 10 ml/Chromium/ Copper/Manganese/ Seleni/Zn 0.5 ml/ Total Parenteral Nutrition/Amino Acids/Dextrose/ Fat Emulsion Intravenous 1,400 ml @ 58.333 mls/ hr TPN CONT 07/12/19 22:00 07/13/19 21:59 DC 07/12/19 22:17 58.333 MLS/HR Sodium Chloride 90 meq/Potassium Chloride 15 meq/ Potassium Phosphate 15 mmol/ Magnesium Sulfate 10 meq/Calcium Gluconate 20 meq/ Multivitamins 10 ml/Chromium/ Copper/Manganese/ Seleni/Zn 0.5 ml/ Total Parenteral Nutrition/Amino Acids/Dextrose/ Fat Emulsion Intravenous 1,200 ml @ 50 mls/hr TPN CONT 07/10/19 22:00 07/10/19 14:17 DC Sodium Chloride 90 meq/Potassium Chloride 15 meq/ Potassium Phosphate 18 mmol/ Magnesium Sulfate 8 meq/Calcium Gluconate 15 meq/ Multivitamins 10 ml/Chromium/ Copper/Manganese/ Seleni/Zn 0.5 ml/ Insulin Human Regular 10 unit/ Total Parenteral Nutrition/Amino Acids/Dextrose/ Fat Emulsion Intravenous 1,400 ml @ 58.333 mls/ hr TPN CONT 07/15/19 22:00 07/16/19 21:59 DC 07/15/19 21:43 58.333 MLS/HR Sodium Chloride 90 meq/Potassium Chloride 15 meq/ Potassium Phosphate 18 mmol/ Magnesium Sulfate 8 meq/Calcium Gluconate 15 meq/ Multivitamins 10 ml/Chromium/ Copper/Manganese/ Seleni/Zn 0.5 ml/ Insulin Human Regular 15 unit/ Total Parenteral Nutrition/Amino Acids/Dextrose/ Fat Emulsion Intravenous 1,400 ml @ 58.333 mls/ hr TPN CONT 07/18/19 22:00 07/19/19 21:59 DC 07/18/19 21:47 58.333 MLS/HR Sodium Chloride 90 meq/Potassium Chloride 15 meq/ Potassium Phosphate 18 mmol/ Magnesium Sulfate 8 meq/Calcium Gluconate 15 meq/ Multivitamins 10 ml/Chromium/ Copper/Manganese/ Seleni/Zn 0.5 ml/ Insulin Human Regular 20 unit/ Total Parenteral Nutrition/Amino Acids/Dextrose/ Fat Emulsion Intravenous 1,400 ml @ 58.333 mls/ hr TPN CONT 07/21/19 22:00 07/22/19 21:59 DC 07/21/19 22:45 58.333 MLS/HR Sodium Chloride 90 meq/Potassium Chloride 15 meq/ Potassium Phosphate 18 mmol/ Magnesium Sulfate 8 meq/Calcium Gluconate 15 meq/ Multivitamins 10 ml/Chromium/ Copper/Manganese/ Seleni/Zn 0.5 ml/ Total Parenteral Nutrition/Amino Acids/Dextrose/ Fat Emulsion Intravenous 1,400 ml @ 58.333 mls/ hr TPN CONT 07/14/19 22:00 07/15/19 21:59 DC 07/14/19 22:00 58.333 MLS/HR Sodium Chloride 90 meq/Potassium Chloride 30 meq/ Potassium Acetate 30 meq/Magnesium Sulfate 15 meq/ Multivitamins 10 ml/Chromium/ Copper/Manganese/ Seleni/Zn 1 ml/ Insulin Human Regular 15 unit/ Total Parenteral Nutrition/Amino Acids/Dextrose/ Fat Emulsion Intravenous 1,680 ml @ 70 mls/hr TPN CONT 11/03/19 22:00 11/04/19 21:59 DC 11/03/19 22:06 70 MLS/HR Sodium Chloride 90 meq/Potassium Phosphate 15 mmol/ Magnesium Sulfate 12 meq/Calcium Gluconate 15 meq/ Multivitamins 10 ml/Chromium/ Copper/Manganese/ Seleni/Zn 0.5 ml/ Insulin Human Regular 30 unit/ Total Parenteral Nutrition/Amino Acids/Dextrose/ Fat Emulsion Intravenous 1,400 ml @ 58.333 mls/ hr TPN CONT 07/29/19 22:00 07/30/19 21:59 DC 07/29/19 21:49 58.333 MLS/HR Sodium Chloride 90 meq/Potassium Phosphate 15 mmol/ Magnesium Sulfate 12 meq/Calcium Gluconate 15 meq/ Multivitamins 10 ml/Chromium/ Copper/Manganese/ Seleni/Zn 0.5 ml/ Insulin Human Regular 40 unit/ Total Parenteral Nutrition/Amino Acids/Dextrose/ Fat Emulsion Intravenous 1,400 ml @ 58.333 mls/ hr TPN CONT 07/30/19 22:00 07/31/19 21:59 DC 07/30/19 21:21 58.333 MLS/HR Sodium Chloride 90 meq/Potassium Phosphate 19 mmol/ Magnesium Sulfate 12 meq/Calcium Gluconate 15 meq/ Multivitamins 10 ml/Chromium/ Copper/Manganese/ Seleni/Zn 0.5 ml/ Insulin Human Regular 40 unit/ Total Parenteral Nutrition/Amino Acids/Dextrose/ Fat Emulsion Intravenous 1,400 ml @ 58.333 mls/ hr TPN CONT 07/31/19 22:00 08/01/19 21:59 DC 07/31/19 21:54 58.333 MLS/HR Sodium Chloride 90 meq/Potassium Phosphate 5 mmol/ Magnesium Sulfate 12 meq/Calcium Gluconate 15 meq/ Multivitamins 10 ml/Chromium/ Copper/Manganese/ Seleni/Zn 0.5 ml/ Insulin Human Regular 30 unit/ Total Parenteral Nutrition/Amino Acids/Dextrose/ Fat Emulsion Intravenous 1,400 ml @ 58.333 mls/ hr TPN CONT 07/28/19 22:00 07/29/19 21:59 DC 07/28/19 22:08 58.333 MLS/HR Sodium Chloride 100 meq/Potassium Chloride 30 meq/ Potassium Acetate 30 meq/Magnesium Sulfate 12 meq/ Multivitamins 10 ml/Chromium/ Copper/Manganese/ Seleni/Zn 1 ml/ Insulin Human Regular 15 unit/ Total Parenteral Nutrition/Amino Acids/Dextrose/ Fat Emulsion Intravenous 1,680 ml @ 70 mls/hr TPN CONT 10/23/19 22:00 10/24/19 21:59 DC 10/23/19 21:23 70 MLS/HR Sodium Chloride 100 meq/Potassium Chloride 40 meq/ Magnesium Sulfate 15 meq/Calcium Gluconate 15 meq/ Multivitamins 10 ml/Chromium/ Copper/Manganese/ Seleni/Zn 0.5 ml/ Insulin Human Regular 35 unit/ Total Parenteral Nutrition/Amino Acids/Dextrose/ Fat Emulsion Intravenous 1,400 ml @ 58.333 mls/ hr TPN CONT 08/07/19 22:00 08/08/19 21:59 DC 08/07/19 22:46 58.333 MLS/HR Sodium Chloride 100 meq/Potassium Chloride 40 meq/ Magnesium Sulfate 20 meq/Calcium Gluconate 10 meq/ Multivitamins 10 ml/Chromium/ Copper/Manganese/ Seleni/Zn 0.5 ml/ Insulin Human Regular 35 unit/ Total Parenteral Nutrition/Amino Acids/Dextrose/ Fat Emulsion Intravenous 1,400 ml @ 58.333 mls/ hr TPN CONT 08/11/19 22:00 08/12/19 21:59 DC 08/12/19 00:06 58.333 MLS/HR Sodium Chloride 100 meq/Potassium Chloride 40 meq/ Magnesium Sulfate 20 meq/Calcium Gluconate 15 meq/ Multivitamins 10 ml/Chromium/ Copper/Manganese/ Seleni/Zn 0.5 ml/ Insulin Human Regular 35 unit/ Total Parenteral Nutrition/Amino Acids/Dextrose/ Fat Emulsion Intravenous 1,400 ml @ 58.333 mls/ hr TPN CONT 08/10/19 22:00 08/11/19 21:59 DC 08/10/19 22:27 58.333 MLS/HR Sodium Chloride 100 meq/Potassium Phosphate 10 mmol/ Magnesium Sulfate 12 meq/Calcium Gluconate 15 meq/ Multivitamins 10 ml/Chromium/ Copper/Manganese/ Seleni/Zn 0.5 ml/ Insulin Human Regular 35 unit/ Potassium Chloride 20 meq/ Total Parenteral Nutrition/Amino Acids/Dextrose/ Fat Emulsion Intravenous 1,400 ml @ 58.333 mls/ hr TPN CONT 08/04/19 22:00 08/05/19 21:59 DC 08/04/19 22:10 58.333 MLS/HR Sodium Chloride 100 meq/Potassium Phosphate 19 mmol/ Magnesium Sulfate 12 meq/Calcium Gluconate 15 meq/ Multivitamins 10 ml/Chromium/ Copper/Manganese/ Seleni/Zn 0.5 ml/ Insulin Human Regular 40 unit/ Potassium Chloride 20 meq/ Total Parenteral Nutrition/Amino Acids/Dextrose/ Fat Emulsion Intravenous 1,400 ml @ 58.333 mls/ hr TPN CONT 08/03/19 22:00 08/04/19 21:59 DC 08/03/19 21:20 58.333 MLS/HR Sodium Chloride 100 meq/Potassium Phosphate 5 mmol/ Magnesium Sulfate 12 meq/Calcium Gluconate 15 meq/ Multivitamins 10 ml/Chromium/ Copper/Manganese/ Seleni/Zn 0.5 ml/ Insulin Human Regular 35 unit/ Potassium Chloride 20 meq/ Total Parenteral Nutrition/Amino Acids/Dextrose/ Fat Emulsion Intravenous 1,400 ml @ 58.333 mls/ hr TPN CONT 08/05/19 22:00 08/06/19 21:59 DC 08/05/19 22:59 58.333 MLS/HR Sodium Chloride 110 meq/Potassium Chloride 30 meq/ Potassium Acetate 30 meq/Magnesium Sulfate 15 meq/ Multivitamins 10 ml/Chromium/ Copper/Manganese/ Seleni/Zn 1 ml/ Insulin Human Regular 15 unit/ Total Parenteral Nutrition/Amino Acids/Dextrose/ Fat Emulsion Intravenous 1,680 ml @ 70 mls/hr TPN CONT 11/05/19 22:00 11/06/19 21:59 DC 11/05/19 22:01 70 MLS/HR Sodium Chloride 110 meq/Sodium Phosphate 10 mmol/ Potassium Chloride 30 meq/ Potassium Acetate 30 meq/Magnesium Sulfate 15 meq/ Multivitamins 10 ml/Chromium/ Copper/Manganese/ Seleni/Zn 1 ml/ Insulin Human Regular 15 unit/ Total Parenteral Nutrition/Amino Acids/Dextrose/ Fat Emulsion Intravenous 1,680 ml @ 70 mls/hr TPN CONT 11/06/19 22:00 11/07/19 21:59 DC 11/06/19 22:03 70 MLS/HR Sodium Chloride 120 meq/Sodium Phosphate 10 mmol/ Potassium Chloride 30 meq/ Potassium Acetate 30 meq/Magnesium Sulfate 15 meq/ Multivitamins 10 ml/Chromium/ Copper/Manganese/ Seleni/Zn 1 ml/ Insulin Human Regular 15 unit/ Total Parenteral Nutrition/Amino Acids/Dextrose/ Fat Emulsion Intravenous 1,680 ml @ 70 mls/hr TPN CONT 11/13/19 22:00 11/14/19 21:59 Cancel Succinylcholine Chloride (Anectine) 120 mg 1X ONCE 07/11/19 08:30 07/11/19 08:31 DC 07/11/19 08:34 120 MG Vancomycin HCl (Vanco Per Pharmacy) 1 each PRN DAILY PRN 10/30/19 09:15 11/02/19 07:41 DC 11/01/19 02:46 1 EACH Vancomycin HCl (Vancomycin Random Level) 1 each 1X ONCE 11/01/19 01:00 11/01/19 01:01 DC 11/01/19 01:00 1 EACH Vancomycin HCl (Vancomycin Trough Level) 1 each 1X ONCE 11/02/19 09:30 11/02/19 09:31 Cancel Vancomycin HCl 1.5 gm/Sodium Chloride 500 ml @ 250 mls/hr Q12H 11/01/19 10:00 11/02/19 07:41 DC 11/01/19 22:07 250 MLS/HR Vancomycin HCl 2 gm/Sodium Chloride 500 ml @ 250 mls/hr 1X ONCE 10/30/19 10:00 10/30/19 11:59 DC 10/30/19 10:34 250 MLS/HR Vasopressin (Vasostrict) 20 unit STK-MED ONCE 10/18/19 12:23 10/18/19 12:23 DC Vasopressin 20 unit/Dextrose 101 ml @ 12 mls/hr CONT PRN 10/18/19 15:30 11/21/19 09:45 DC 10/25/19 04:17 12 MLS/HR Vecuronium [place] (Norcuron Bolus) 6 mg PRN Q6HRS PRN 5/7/20 19:15 08/25/19 19:35 DC Vitamin A/Vitamin D (Vitamin A & D Ointment) 1 ramu PRN Q1HR PRN 11/22/19 09:15 11/26/19 05:26 1 RAMU Zoledronic Acid 100 ml @ 400 mls/hr 1X ONCE 11/25/19 12:00 11/25/19 12:14 DC 11/25/19 13:04 400 MLS/HR Labs: Lab Laboratory Tests Test 11/28/19 12:27 11/28/19 18:38 11/29/19 00:25 11/29/19 05:30 Glucose (Fingerstick) 171 mg/dL (70-99) 210 mg/dL (70-99) 185 mg/dL (70-99) Sodium Level 147 mmol/L (136-145) Potassium Level 5.9 mmol/L (3.5-5.1) Chloride Level 113 mmol/L (98-107) Carbon Dioxide Level 25 mmol/L (21-32) Anion Gap 9 (6-14) Blood Urea Nitrogen 61 mg/dL (7-20) Creatinine 1.8 mg/dL (0.6-1.0) Estimated GFR (Cockcroft-Gault) 29.9 Glucose Level 209 mg/dL (70-99) Calcium Level 8.2 mg/dL (8.5-10.1) Test 11/29/19 05:34 Glucose (Fingerstick) 190 mg/dL (70-99) Micro NEG ALEXANDRA 56 PSEUDOMONAS AERUGINOSA ANTIBIOTIC RESULT INTERPRETATION AMIKACIN <=16 S AZTREONAM >16 R CEFTAZIDIME >16 R CIPROFLOXACIN <=0.25 S CEFEPIME 16 I GENTAMICIN <=2 S LEVOFLOXACIN <=0.5 S CONTINUED ON NEXT PAGE RUN DATE: 09/28/19 [facility] *LIVE* PAGE 2 RUN TIME: 1121 Specimen Inquiry SPEC: [id number] PATIENT: SCOTT CUELLAR [id number] (Continued) Procedure Result ANTIMICROBIAL SUSCEPTIBILITY Preliminary (continued) MEROPENEM <=1 S PIPERACILLIN/TAZOBACTAM 64 S TOBRAMYCIN <=2 S Unless otherwise specified, Testing Performed by: [address] [address] For Inquires, the Physician may contact the Microbiology department at [phone] Objective: Assessment: Patient with prolonged hospitalization more than 4 months Multiple medical problems Multiple surgical procedures Intermittent fevers S/P Exp. 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 parapsilosis & PSAE (I-merrem/ceftazidime/AZT/cefepime)) Leukocytosis - better Loose stool but on tube feed - WBC down and no gross fever Fever - 11/11 c-diff neg Anemia Acute gallstone pancreatitis with persistent necrosis - 07/27. CT A/P Increased ascites. 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 status post KAYLIN drain placement; C. parapsilosis. s/p drain 08/23 + yeast & high amylase; s/p additional drain on 08/25. Drains removed. -08/23. fluid devyn parapsilosis fluid, amylase high - 09/23 showed multiple pseudocysts, slight larger on the right. s/p drains x 3, 09/24. + PSAE (MDRO-R Cefepime, Zosyn ALEXANDRA < 64) and yeast, -09/24 s/p drain replacement x 3; fluid cult PSAE (MDRO), yeast; treated -10/29 CT A/P shows smaller fluid collections. -722 CT abdomen and pelvis drains in place Ascites s/p paracentesis 08/02 & 08/23. C. parapsilosis Cholelithiasis with thickening of the gallbladder wall. JUANA, Hyperkalemia, Metabolic acidosis off dialysis Acute hypoxic resp failure. trach/vent. 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 difficile negative Monitor WBC/temp Wound care /drain management as directed Contact isolation for CRE/MDRO [facility] prognosis poor D/w nursing YUNIOR JONES MD Nov 29, 2019 10:26
[2019-11-29] MEDS: VITS A & D/LANOLIN TOPICAL OINTMENT 42GM TUBE. TP PRN (10:44)
--- NOTE | 2019-11-29 12:31 | PDOC ---
PROGRESS NOTES Date of Service: DATE: 11/29/19 TIME: 12:30 Chief Complaint Chief Complaint S/P Exp. 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 parapsilosis & PSAE 11/12 (I-merrem/ceftazidime/AZT/cefepime)) Leucocytosis Fevers, intermittent Acute gallstone pancreatitis with persistent necrosis Acute hypoxic Respiratory failure required mechanical ventilation Tracheostomy Bilateral pleural effusions/pulm edema s/p Throacentesis on 10/03/2019 HTN Intractable pain Intractable nausea Covid 19 negative Acute on chronic anemia Abd distention - U/S and CT reviewed s/p 0.4 L of opaque, debris-containing ascites was removed 08/23 Gallstone pancreatitis with necrosis. -CT A/P 09/23 showed multiple pseudocysts, slight larger on the right. s/p drains x 3, 09/24. + PSAE (MDRO-R Cefepime, Zosyn ALEXANDRA < 64) and yeast, -s/p drain 08/14. C. parapsilosis. s/p drain 08/23 + yeast & high amylase; s/p additional drain on 08/25. Drains removed. Ascites s/p paracentesis 08/02 & 08/23. C. parapsilosis JUANA. off HD. A large fluid collection in the pancreatic bed has slightly decreased in size, described below, the pancreas itself is difficult to visualize, which could be due to necrosis or obscuration of pancreatic parenchyma from the surrounding fluid collection.10/02 - 08/14 status post KAYLIN drain placement + C paropsilosis. s/p additional drains 08/25 Hypocalcemia Prediabetes s/p trach Hyperglycemia Severe protein-caloric malnutrition Extensive retroperitoneal fluid collections persist. Percutaneous drains remain within the collections in both paracolic gutters. These communicate with additional pelvic and peripancreatic collections. History of Present Illness History of Present Illness 11/28. dyspnea and mild distress worsened this AM. but was able to walk some with PT later. still HR 140 sometimes, 11/28/2019 Patient seen and examined Afebrile Resting in NAD Tachycardic and tachypneic overnight Recurring leukocytosis, 23.0 Chart reviewed Discussed with RN 11/26: Afebrile. Calcium down to 10.1. Little more tachycardic today with some more secretions. No O2 requirements. Does not wish to wear her speaking valve. Will check CXR. 11/25: Afebrile, weak, having more secretions not wearing a speaking valve today. WBC 10, Hb 8.8, NA 144, and K3.7, BUN 12, CR 0.5, calcium down to 10.3. After zoledronic acid 11/24: Had a rash after calcitonin injection. Discussed with nephrology with her calcium moving from 11.3-10.9 will give IV bisphosphonate today, zoledronic acid. 11/23: Hb stable. Afebrile. Weak. Calcium increased. Shortness of breath is improving. Plan for calcitonin today, lasix, and saline 11/22: Hemoglobin abnormally low on repeat has been stable 7.2. Calcium up to 10.9. She is able to work with PT, she is asking to eat. Social work is been having difficulties with both of her daughters completing the financial aspect of disability paperwork which is been prolonging her stay over the past 5 months. Plan to check PTH and to treat hypercalcemia with 1 L normal saline 40 mg of IV Lasix and repeat labs in a.m. 11/21: Not wishing to wear her speaking valve. J tube having some difficulties. Afebrile. Jamaal bedside to aid her. transferred from ICU today 11/20: No overnight events. Calcium 10.7 on AM labs. She is still a bit slow to to respond, but follows commands well. Does not want speaking valve with me. Pain is better controlled in her abdomen. Wound care to see today. Will check liver function and phos levels given her calcium elevation. 11/19: Patient seen and examined bedside. Positive fluid balance in the past 24 hours. Patient's chart, labs, images were reviewed and discussed with RN 11/18: No acute events overnight. Seen and examined at bedside. Patient had a fever 100.2. Negative fluid balance of 150 cc. Patient's chart, labs, images were reviewed and discussed with RN 11/17: Patient seen and examined at bedside. No acute events overnight. Positive fluid balance 633. Patient's chart, labs, images were reviewed and discussed with RN 11/16: Patient seen and examined bedside. No acute events overnight. Patient's chart, labs, images were reviewed and discussed with RN 11/14: Patient seen and examined bedside. Patient appears to be in no obvious pain. All drains have been adequately draining. Patient continues to be on TPN. Chart labs and imaging was reviewed. Negative fluid balance of 270 cc 11/13:Patient seen and examined in the ICU. Patient still requires extensive care. 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 Chart, labs, imaging was reviewed. UOP with + 500cc balance. 11/11: Patient seen in and examined in the ICU. She is still extremely critically ill. Appears weak, frail, and pale. Better color today with improved eye contact and expression. Discussed with RN. Chart reviewed 11/07: Patient seen and examined in the ICU, She is still extremely critically ill, Appears extremely weak frail and pale, Discussed with RN, Chart reviewed Vitals Vitals Vital Signs Date Time Temp Pulse Resp B/P (MAP) Pulse Ox O2 Delivery O2 Flow Rate FiO2 11/29/19 11:00 99.3 130 40 108/57 (74) 99 Nasal Cannula 3.0 99.3 Physical Exam Physical Exam GENERAL: Resting in bed, NAD HEENT: Pupils equal, oral cavity dry. OC/Op - Dry NECK: Tracheostomy - no JVD LUNGS: Diminished aeration bases, HEART: S1, S2, ABDOMEN: Less distended, mild- bowel sounds hypoactive, soft, GJ drain present, drainage bag in place with depedent drainage : Lind in place EXTREMITIES: Trace generalized edema, no cyanosis. Yeast in groin area SKIN: warm touch. No signs of rash. NEURO: - Alert and responsive RUE PICC site without signs of complications. PIV s clean EC fistula General: Cooperative Heart: Normal S1, Normal S2, Other Lungs: Clear Abdomen: Soft Extremities: No clubbing, No cyanosis, Other (Diffuse edema) Skin: No breakdown Labs LABS Laboratory Tests Test 11/28/19 18:38 11/29/19 00:25 11/29/19 05:30 11/29/19 05:34 Glucose (Fingerstick) 210 mg/dL (70-99) 185 mg/dL (70-99) 190 mg/dL (70-99) Sodium Level 147 mmol/L (136-145) Potassium Level 5.9 mmol/L (3.5-5.1) Chloride Level 113 mmol/L (98-107) Carbon Dioxide Level 25 mmol/L (21-32) Anion Gap 9 (6-14) Blood Urea Nitrogen 61 mg/dL (7-20) Creatinine 1.8 mg/dL (0.6-1.0) Estimated GFR (Cockcroft-Gault) 29.9 Glucose Level 209 mg/dL (70-99) Calcium Level 8.2 mg/dL (8.5-10.1) Test 11/29/19 12:20 Glucose (Fingerstick) 172 mg/dL (70-99) Assessment and Plan Assessmemt and Plan Problems Medical Problems: (1) Acute pancreatitis Status: Acute (2) Cholelithiasis Status: Acute Comment Review of Relevant I have reviewed the following items kolby (where applicable) has been applied. Labs Laboratory Tests Test 11/27/19 17:17 11/27/19 17:51 11/27/19 19:50 11/27/19 23:01 Glucose (Fingerstick) 164 mg/dL (70-99) 166 mg/dL (70-99) Phosphorus Level 2.7 mg/dL (2.6-4.7) Lactic Acid Level < 0.3 mmol/L (0.4-2.0) Test 11/28/19 03:00 11/28/19 09:45 11/28/19 12:27 11/28/19 18:38 White Blood Count 23.1 x10^3/uL (4.0-11.0) Red Blood Count 3.29 x10^6/uL (3.50-5.40) Hemoglobin 9.3 g/dL (12.0-15.5) Hematocrit 29.2 % (36.0-47.0) Mean Corpuscular Volume 89 fL (79-100) Mean Corpuscular Hemoglobin 28 pg (25-35) Mean Corpuscular Hemoglobin Concent 32 g/dL (31-37) Red Cell Distribution Width 18.9 % (11.5-14.5) Platelet Count 620 x10^3/uL (140-400) Neutrophils (%) (Auto) 82 % (31-73) Lymphocytes (%) (Auto) 12 % (24-48) Monocytes (%) (Auto) 6 % (0-9) Eosinophils (%) (Auto) 0 % (0-3) Basophils (%) (Auto) 0 % (0-3) Neutrophils # (Auto) 18.9 x10^3/uL (1.8-7.7) Lymphocytes # (Auto) 2.9 x10^3/uL (1.0-4.8) Monocytes # (Auto) 1.3 x10^3/uL (0.0-1.1) Eosinophils # (Auto) 0.0 x10^3/uL (0.0-0.7) Basophils # (Auto) 0.1 x10^3/uL (0.0-0.2) Sodium Level 145 mmol/L (136-145) Potassium Level 5.6 mmol/L (3.5-5.1) Chloride Level 111 mmol/L (98-107) Carbon Dioxide Level 26 mmol/L (21-32) Anion Gap 8 (6-14) Blood Urea Nitrogen 35 mg/dL (7-20) Creatinine 1.2 mg/dL (0.6-1.0) Estimated GFR (Cockcroft-Gault) 47.7 Glucose Level 138 mg/dL (70-99) Calcium Level 9.1 mg/dL (8.5-10.1) Urine Collection Type Unknown Urine Color Hollie Urine Clarity Turbid Urine pH 5.0 (<5.0-8.0) Urine Specific [place] >=1.030 (1.000-1.030) Urine Protein 100 mg/dL (NEG-TRACE) Urine Glucose (UA) Negative mg/dL (NEG) Urine Ketones (Stick) Trace mg/dL (NEG) Urine Blood Large (NEG) Urine Nitrite Negative (NEG) Urine Bilirubin Negative (NEG) Urine Urobilinogen Dipstick 0.2 mg/dL (0.2 mg/dL) Urine Leukocyte Esterase Large (NEG) Urine RBC Field obscured /HPF (0-2) Urine WBC Tntc /HPF (0-4) Urine Bacteria Many /HPF (0-FEW) Urine Yeast Present /HPF Glucose (Fingerstick) 171 mg/dL (70-99) 210 mg/dL (70-99) Test 11/29/19 00:25 11/29/19 05:30 11/29/19 05:34 11/29/19 12:20 Glucose (Fingerstick) 185 mg/dL (70-99) 190 mg/dL (70-99) 172 mg/dL (70-99) Sodium Level 147 mmol/L (136-145) Potassium Level 5.9 mmol/L (3.5-5.1) Chloride Level 113 mmol/L (98-107) Carbon Dioxide Level 25 mmol/L (21-32) Anion Gap 9 (6-14) Blood Urea Nitrogen 61 mg/dL (7-20) Creatinine 1.8 mg/dL (0.6-1.0) Estimated GFR (Cockcroft-Gault) 29.9 Glucose Level 209 mg/dL (70-99) Calcium Level 8.2 mg/dL (8.5-10.1) Laboratory Tests Test 11/28/19 18:38 11/29/19 00:25 11/29/19 05:30 11/29/19 05:34 Glucose (Fingerstick) 210 mg/dL (70-99) 185 mg/dL (70-99) 190 mg/dL (70-99) Sodium Level 147 mmol/L (136-145) Potassium Level 5.9 mmol/L (3.5-5.1) Chloride Level 113 mmol/L (98-107) Carbon Dioxide Level 25 mmol/L (21-32) Anion Gap 9 (6-14) Blood Urea Nitrogen 61 mg/dL (7-20) Creatinine 1.8 mg/dL (0.6-1.0) Estimated GFR (Cockcroft-Gault) 29.9 Glucose Level 209 mg/dL (70-99) Calcium Level 8.2 mg/dL (8.5-10.1) Test 11/29/19 12:20 Glucose (Fingerstick) 172 mg/dL (70-99) Microbiology 11/28/19 Blood Culture - Preliminary, Resulted NO GROWTH AFTER 1 DAY 11/13/19 Gram Stain - Final, Complete 11/13/19 Aerobic Culture - Final, Complete 11/13/19 Urine Culture - Final, Complete 11/08/19 Gram Stain - Final, Complete 11/08/19 Aerobic and Anaerobic Culture - Final, Complete 11/06/19 Gram Stain Evaluation - Final, Complete 11/06/19 Respiratory Culture - Final, Complete 11/06/19 Antimicrobic Susceptibility - Final, Complete 10/18/19 Gram Stain - Final, Complete 10/18/19 Aerobic and Anaerobic Culture - Final, Complete 10/18/19 Antimicrobic Susceptibility - Final, Complete Medications Current Medications Sodium Chloride 1,000 ml @ 1,000 mls/hr Q1H IV Last administered on 07/04/19at 03:00; Start 07/04/19 at 03:00; Stop 07/04/19 at 03:59; Status DC Ondansetron HCl (Zofran) 4 mg 1X ONCE IVP Last administered on 07/04/19at 03:27; Start 07/04/19 at 03:00; Stop 07/04/19 at 03:01; Status DC Morphine Sulfate (Morphine Sulfate) 4 mg 1X ONCE IV ; Start 07/04/19 at 03:00; Stop 07/04/19 at 03:01; Status Cancel Ketorolac Tromethamine (Toradol 30mg Vial) 30 mg 1X ONCE IV Last administered on 07/04/19at 02:54; Start 07/04/19 at 03:00; Stop 07/04/19 at 03:01; Status DC Fentanyl Citrate (Fentanyl 2ml Vial) 25 mcg 1X ONCE IVP Last administered on 07/04/19at 03:23; Start 07/04/19 at 03:30; Stop 07/04/19 at 03:31; Status DC Fentanyl Citrate (Fentanyl 2ml Vial) 100 mcg STK-MED ONCE .ROUTE ; Start 07/04/19 at 03:18; Stop 07/04/19 at 03:18; Status DC Iohexol (Omnipaque 350 Mg/ml) 90 ml 1X ONCE IV Last administered on 07/04/19at 03:25; Start 07/04/19 at 03:30; Stop 07/04/19 at 03:31; Status DC Info (CONTRAST GIVEN -- Rx MONITORING) 1 each PRN DAILY PRN MC SEE COMMENTS; Start 07/04/19 at 03:30; Stop 07/06/19 at 03:29; Status DC Hydromorphone HCl (Dilaudid) 0.5 mg 1X ONCE IV Last administered on 07/04/19at 03:55; Start 07/04/19 at 04:30; Stop 07/04/19 at 04:32; Status DC Ondansetron HCl (Zofran) 4 mg PRN Q8HRS PRN IV NAUSEA/VOMITING 1ST CHOICE; Start 07/04/19 at 05:00; Stop 07/04/19 at 09:27; Status DC Morphine Sulfate (Morphine Sulfate) 2 mg PRN Q2HR PRN IV SEVERE PAIN 7-10 Last administered on 07/05/19at 12:26; Start 07/04/19 at 05:00; Stop 07/05/19 at 14: 15; Status DC Sodium Chloride 1,000 ml @ 125 mls/hr Q8H IV Last administered on 07/04/19at 20:56; Start 07/04/19 at 05:00; Stop 07/05/19 at 04:59; Status DC Hydromorphone HCl (Dilaudid) 0.5 mg PRN Q3HRS PRN IV SEVERE PAIN 7-10 Last administered on 07/05/19at 10:06; Start 07/04/19 at 05:00; Stop 07/05/19 at 12:01; Status DC Piperacillin Sod/ Tazobactam Sod 4.5 gm/Sodium Chloride 100 ml @ 200 mls/hr 1X ONCE IV Last administered on 07/04/19at 05:44; Start 07/04/19 at 06:00; Stop 07/04/19 at 06:29; Status DC Ondansetron HCl (Zofran) 4 mg PRN Q4HRS PRN IV NAUSEA/VOMITING 1ST CHOICE Last administered on 11/27/19at 23:15; Start 07/04/19 at 09:30 Insulin Human Lispro (HumaLOG) 0-9 UNITS Q6HRS SQ Last administered on 11/28/19at 19:01; Start 07/04/19 at 09:30 Dextrose (Dextrose 50%-Water Syringe) 12.5 gm PRN Q15MIN PRN IV SEE COMMENTS; Start 07/04/19 at 09:30 Pantoprazole Sodium (PROTONIX VIAL for IV PUSH) 40 mg DAILYAC IVP Last administered on 11/29/19at 09:42; Start 07/04/19 at 11:30 Prochlorperazine Edisylate (Compazine) 10 mg PRN Q6HRS PRN IV NAUSEA/VOMITING, 2nd CHOICE Last administered on 11/28/19at 00:42; Start 07/04/19 at 17:45 Atenolol (Tenormin) 100 mg DAILY PO ; Start 07/05/19 at 09:00; Stop 07/04/19 at 20:08; Status DC Metoprolol Tartrate (Lopressor Vial) 2.5 mg Q6HRS IVP Last administered on 07/05/19at 05:51; Start 07/04/19 at 20:15; Stop 07/05/19 at 10:02; Status DC Metoprolol Tartrate (Lopressor Vial) 5 mg Q6HRS IVP Last administered on 07/14/19at 00:12; Start 07/05/19 at 10:15; Stop 07/16/19 at 08:48; Status DC Hydromorphone HCl (Dilaudid) 1 mg PRN Q3HRS PRN IV SEVERE PAIN 7-10 Last administered on 07/11/19at 05:13; Start 07/05/19 at 12:00; Stop 07/19/19 at 00:25; Status DC Lidocaine HCl (Buffered Lidocaine 1%) 3 ml STK-MED ONCE .ROUTE ; Start 07/05/19 at 12:55; Stop 07/05/19 at 12:56; Status DC Albumin Human 500 ml @ 125 mls/hr 1X ONCE IV Last administered on 07/05/19at 14:33; Start 07/05/19 at 14:30; Stop 07/05/19 at 18:32; Status DC Norepinephrine Bitartrate 8 mg/ Dextrose 258 ml @ 17.299 mls/ hr CONT PRN IV PER PROTOCOL Last administered on 08/02/19at 12:48; Start 07/05/19 at 15:30; Stop 08/05/19 at 09:19; Status DC Sodium Chloride 1,000 ml @ 125 mls/hr Q8H IV Last administered on 07/05/19at 21:04; Start 07/05/19 at 16:00; Stop 07/06/19 at 02:42; Status DC Albumin Human 500 ml @ 125 mls/hr PRN BID PRN IV After every 2L NSS & BP < 90mm Last administered on 10/18/19at 16:06; Start 07/05/19 at 16:00; Stop 10/21/19 at 09:30; Status DC Iohexol (Omnipaque 300 Mg/ml) 60 ml 1X ONCE IV Last administered on 07/05/19at 17:20; Start 07/05/19 at 17:00; Stop 07/05/19 at 17:01; Status DC Info (CONTRAST GIVEN -- Rx MONITORING) 1 each PRN DAILY PRN MC SEE COMMENTS; Start 07/05/19 at 17:00; Stop 07/07/19 at 16:59; Status DC Meropenem 1 gm/ Sodium Chloride 100 ml @ 200 mls/hr Q8HRS IV Last administered on 07/06/19at 05:45; Start 07/05/19 at 20:00; Stop 07/06/19 at 08:48; Status DC Furosemide (Lasix) 40 mg 1X ONCE IVP Last administered on 07/05/19at 22:12; Start 07/05/19 at 22:30; Stop 07/05/19 at 22:31; Status DC Calcium Chloride 1000 mg/Sodium Chloride 110 ml @ 220 mls/hr 1X ONCE IV Last administered on 07/05/19at 22:11; Start 07/05/19 at 22:30; Stop 07/05/19 at 22:59; Status DC Albuterol Sulfate (Ventolin Neb Soln) 2.5 mg 1X ONCE NEB Last administered on 07/06/19at 00:56; Start 07/05/19 at 22:30; Stop 07/05/19 at 22:31; Status DC Insulin Human Regular (HumuLIN R VIAL) 5 unit 1X ONCE IV Last administered on 07/05/19at 22:14; Start 07/05/19 at 22:30; Stop 07/05/19 at 22:31; Status DC Magnesium Sulfate 50 ml @ 25 mls/hr 1X ONCE IV Last administered on 07/06/19at 02:57; Start 07/06/19 at 03:00; Stop 07/06/19 at 04:59; Status DC Calcium Gluconate 1000 mg/Sodium Chloride 110 ml @ 220 mls/hr 1X ONCE IV Last administered on 07/06/19at 02:46; Start 07/06/19 at 03:00; Stop 07/06/19 at 03:29; Status DC Sodium Chloride 1,000 ml @ 200 mls/hr Q5H IV Last administered on 07/06/19at 02:46; Start 07/06/19 at 03:00; Stop 07/06/19 at 10:21; Status DC Calcium Gluconate 1000 mg/Sodium Chloride 110 ml @ 220 mls/hr 1X ONCE IV Last administered on 07/06/19at 03:21; Start 07/06/19 at 03:30; Stop 07/06/19 at 03:59; Status DC Sodium Bicarbonate 50 meq/Sodium Chloride 1,050 ml @ 75 mls/hr Q14H IV Last administered on 07/10/19at 21:10; Start 07/06/19 at 07:30; Stop 07/11/19 at 10:28; Status DC Calcium Gluconate 2000 mg/Sodium Chloride 120 ml @ 220 mls/hr 1X ONCE IV Last administered on 07/06/19at 09:05; Start 07/06/19 at 07:30; Stop 07/06/19 at 08:02; Status DC Lidocaine HCl (Xylocaine-Mpf 1% 2ml Vial) 2 ml STK-MED ONCE .ROUTE ; Start 07/06/19 at 08:47; Stop 07/06/19 at 08:47; Status DC Meropenem 500 mg/ Sodium Chloride 50 ml @ 100 mls/hr Q12HR IV Last administered on 07/11/19at 21:01; Start 07/06/19 at 18:00; Stop 07/12/19 at 07:58; Status DC Lidocaine HCl (Buffered Lidocaine 1%) 3 ml STK-MED ONCE .ROUTE ; Start 07/06/19 at 09:46; Stop 07/06/19 at 09:46; Status DC Lidocaine HCl (Buffered Lidocaine 1%) 6 ml 1X ONCE INJ Last administered on 07/06/19at 10:26; Start 07/06/19 at 10:15; Stop 07/06/19 at 10:16; Status DC Info (Tpn Per Pharmacy) 1 each PRN DAILY PRN MC SEE COMMENTS Last administered on 11/13/19at 08:31; Start 07/06/19 at 12:00; Stop 11/13/19 at 10:41; Status DC Sodium Chloride 1,000 ml @ 1,000 mls/hr Q1H PRN IV hypotension; Start 07/06/19 at 12:07; Stop 07/06/19 at 18:06; Status DC Diphenhydramine HCl (Benadryl) 25 mg 1X PRN PRN IV ITCHING; Start 07/06/19 at 12:15; Stop 07/07/19 at 12:14; Status DC Diphenhydramine HCl (Benadryl) 25 mg 1X PRN PRN IV ITCHING; Start 07/06/19 at 12:15; Stop 07/07/19 at 12:14; Status DC Sodium Chloride 1,000 ml @ 400 mls/hr Q2H30M PRN IV PATENCY; Start 07/06/19 at 12:07; Stop 07/07/19 at 00:06; Status DC Info (PHARMACY MONITORING -- do not chart) 1 each PRN DAILY PRN MC SEE COMMENTS; Start 07/06/19 at 12:15; Stop 07/08/19 at 08:13; Status DC Sodium Chloride 90 meq/Calcium Gluconate 10 meq/ Multivitamins 10 ml/Chromium/ Copper/Manganese/ Seleni/Zn 1 ml/ Total Parenteral Nutrition/Amino Acids/Dextrose/ Fat Emulsion Intravenous 55.005 ml @ 2.292 mls/hr TPN CONT IV ; Start 07/06/19 at 22:00; Stop 07/06/19 at 12:33; Status DC Info (Tpn Per Pharmacy) 1 each PRN DAILY PRN MC SEE COMMENTS; Start 07/06/19 at 12:30; Status UNV Sodium Chloride 90 meq/Calcium Gluconate 10 meq/ Multivitamins 10 ml/Chromium/ Copper/Manganese/ Seleni/Zn 0.5 ml/ Total Parenteral Nutrition/Amino Acids/Dextrose/ Fat Emulsion Intravenous 1,512 ml @ 63 mls/hr TPN CONT IV Last administered on 07/06/19at 22:06; Start 07/06/19 at 22:00; Stop 07/07/19 at 21:59; Status DC Calcium Carbonate/ Glycine (Tums) 500 mg PRN AFTMEALHC PRN PO INDIGESTION; Start 07/06/19 at 17:45; Stop 08/31/19 at 10:25; Status DC Calcium Gluconate (Calcium Gluconate) 2,000 mg 1X ONCE IVP Last administered on 07/07/19at 02:19; Start 07/07/19 at 02:15; Stop 07/07/19 at 02:16; Status DC Calcium Chloride 3000 mg/Sodium Chloride 1,030 ml @ 50 mls/hr [id number] IV Last administered on 07/09/19at 02:17; Start 07/07/19 at 08:00; Stop 07/09/19 at 15:23; Status DC Lorazepam (Ativan Inj) 1 mg PRN Q4HRS PRN IVP ANXIETY / AGITATION, 2nd choic Last administered on 08/05/19at 03:51; Start 07/07/19 at 09:00; Stop 08/05/19 at 09:19; Status DC Sodium Chloride 1,000 ml @ 1,000 mls/hr Q1H PRN IV hypotension; Start 07/07/19 at 08:56; Stop 07/07/19 at 14:55; Status DC Albumin Human 200 ml @ 200 mls/hr 1X PRN PRN IV Hypotension; Start 07/07/19 at 09:00; Stop 07/07/19 at 14:59; Status DC Diphenhydramine HCl (Benadryl) 25 mg 1X PRN PRN IV ITCHING; Start 07/07/19 at 09:00; Stop 07/08/19 at 08:59; Status DC Diphenhydramine HCl (Benadryl) 25 mg 1X PRN PRN IV ITCHING; Start 07/07/19 at 09:00; Stop 07/08/19 at 08:59; Status DC Sodium Chloride 1,000 ml @ 400 mls/hr Q2H30M PRN IV PATENCY; Start 07/07/19 at 08:56; Stop 07/07/19 at 20:55; Status DC Info (PHARMACY MONITORING -- do not chart) 1 each PRN DAILY PRN MC SEE COMMENTS; Start 07/07/19 at 09:00; Status UNV Info (PHARMACY MONITORING -- do not chart) 1 each PRN DAILY PRN MC SEE COMMENTS; Start 07/07/19 at 09:00; Stop 07/08/19 at 08:13; Status DC Digoxin (Lanoxin) 500 mcg 1X ONCE IV Last administered on 07/07/19at 10:04; Start 07/07/19 at 10:00; Stop 07/07/19 at 10:01; Status DC Digoxin (Lanoxin) 125 mcg 1X ONCE IV Last administered on 07/07/19at 17:10; Start 07/07/19 at 18:00; Stop 07/07/19 at 18:01; Status DC Magnesium Sulfate 100 ml @ 25 mls/hr 1X ONCE IV Last administered on 07/07/19at 12:48; Start 07/07/19 at 13:00; Stop 07/07/19 at 16:59; Status DC Sodium Chloride 90 meq/Magnesium Sulfate 10 meq/ Calcium Gluconate 20 meq/ Multivitamins 10 ml/Chromium/ Copper/Manganese/ Seleni/Zn 0.5 ml/ Total Parenteral Nutrition/Amino Acids/Dextrose/ Fat Emulsion Intravenous 1,512 ml @ 63 mls/hr TPN CONT IV Last administered on 07/07/19at 22:25; Start 07/07/19 at 22:00; Stop 07/08/19 at 21:59; Status DC Sodium Chloride 1,000 ml @ 1,000 mls/hr Q1H PRN IV hypotension; Start 07/08/19 at 08:05; Stop 07/08/19 at 14:04; Status DC Albumin Human 200 ml @ 200 mls/hr 1X ONCE IV Last administered on 07/08/19at 08:57; Start 07/08/19 at 08:15; Stop 07/08/19 at 09:14; Status DC Diphenhydramine HCl (Benadryl) 25 mg 1X PRN PRN IV ITCHING; Start 07/08/19 at 08:15; Stop 07/09/19 at 08:14; Status DC Diphenhydramine HCl (Benadryl) 25 mg 1X PRN PRN IV ITCHING; Start 07/08/19 at 08:15; Stop 07/09/19 at 08:14; Status DC Sodium Chloride 1,000 ml @ 400 mls/hr Q2H30M PRN IV PATENCY; Start 07/08/19 at 08:05; Stop 07/08/19 at 20:04; Status DC Info (PHARMACY MONITORING -- do not chart) 1 each PRN DAILY PRN MC SEE COMMENTS; Start 07/08/19 at 08:15; Stop 07/12/19 at 07:57; Status DC Sodium Chloride 90 meq/Potassium Chloride 15 meq/ Potassium Phosphate 10 mmol/ Magnesium Sulfate 10 meq/Calcium Gluconate 20 meq/ Multivitamins 10 ml/Chromium/ Copper/Manganese/ Seleni/Zn 0.5 ml/ Total Parenteral Nutrition/Amino Acids/Dextrose/ Fat Emulsion Intravenous 1,512 ml @ 63 mls/hr TPN CONT IV Last administered on 07/08/19at 21:01; Start 07/08/19 at 22:00; Stop 07/09/19 at 21:59; Status DC Potassium Chloride/Water 100 ml @ 100 mls/hr 1X ONCE IV Last administered on 07/08/19at 14:09; Start 07/08/19 at 14:00; Stop 07/08/19 at 14:59; Status DC Benzocaine (Hurricaine One) 1 spray 1X ONCE MM Last administered on 07/08/19at 16:38; Start 07/08/19 at 14:30; Stop 07/08/19 at 14:31; Status DC Lidocaine HCl (Glydo (Lidocaine) Jelly) 1 ramu 1X ONCE MM Last administered on 07/08/19at 16:38; Start 07/08/19 at 14:30; Stop 07/08/19 at 14:31; Status DC Linezolid/Dextrose 300 ml @ 300 mls/hr Q12HR IV Last administered on 07/14/19at 21:04; Start 07/08/19 at 20:00; Stop 07/15/19 at 07:50; Status DC Acetaminophen (Tylenol) 650 mg PRN Q6HRS PRN PO MILD PAIN / TEMP; Start 07/09/19 at 03:30; Stop 07/09/19 at 03:36; Status DC Acetaminophen (Tylenol) 650 mg PRN Q6HRS PRN PEG MILD PAIN / TEMP Last administered on 08/04/19at 19:56; Start 07/09/19 at 03:36; Stop 08/31/19 at 10:25; Status DC Sodium Chloride 1,000 ml @ 1,000 mls/hr Q1H PRN IV hypotension; Start 07/09/19 at 07:50; Stop 07/09/19 at 13:49; Status DC Albumin Human 200 ml @ 200 mls/hr 1X PRN PRN IV Hypotension; Start 07/09/19 at 08:00; Stop 07/09/19 at 13:59; Status DC Sodium Chloride (Normal Saline Flush) 10 ml 1X PRN PRN IV AP catheter pack; Start 07/09/19 at 08:00; Stop 07/10/19 at 07:59; Status DC Sodium Chloride (Normal Saline Flush) 10 ml 1X PRN PRN IV BISQUE KILN PLACER catheter pack; Start 07/09/19 at 08:00; Stop 07/10/19 at 07:59; Status DC Sodium Chloride 1,000 ml @ 400 mls/hr Q2H30M PRN IV PATENCY; Start 07/09/19 at 07:50; Stop 07/09/19 at 19:49; Status DC Info (PHARMACY MONITORING -- do not chart) 1 each PRN DAILY PRN MC SEE COMMENTS; Start 07/09/19 at 08:00; Status UNV Info (PHARMACY MONITORING -- do not chart) 1 each PRN DAILY PRN MC SEE COMMENTS; Start 07/09/19 at 08:00; Stop 07/11/19 at 08:25; Status DC Sodium Chloride 90 meq/Potassium Chloride 15 meq/ Potassium Phosphate 10 mmol/ Magnesium Sulfate 10 meq/Calcium Gluconate 20 meq/ Multivitamins 10 ml/Chromium/ Copper/Manganese/ Seleni/Zn 0.5 ml/ Total Parenteral Nutrition/Amino Acids/Dextrose/ Fat Emulsion Intravenous 1,512 ml @ 63 mls/hr TPN CONT IV Last administered on 07/09/19at 20:57; Start 07/09/19 at 22:00; Stop 07/10/19 at 21:59; Status DC Sodium Chloride 90 meq/Potassium Chloride 15 meq/ Potassium Phosphate 15 mmol/ Magnesium Sulfate 10 meq/Calcium Gluconate 20 meq/ Multivitamins 10 ml/Chromium/ Copper/Manganese/ Seleni/Zn 0.5 ml/ Total Parenteral Nutrition/Amino Ac ids/Dextrose/ Fat Emulsion Intravenous 1,512 ml @ 63 mls/hr TPN CONT IV ; Start 07/10/19 at 22:00; Stop 07/10/19 at 14:16; Status DC Sodium Chloride 90 meq/Potassium Chloride 15 meq/ Potassium Phosphate 15 mmol/ Magnesium Sulfate 10 meq/Calcium Gluconate 20 meq/ Multivitamins 10 ml/Chromium/ Copper/Manganese/ Seleni/Zn 0.5 ml/ Total Parenteral Nutrition/Amino Acids/Dextrose/ Fat Emulsion Intravenous 1,200 ml @ 50 mls/hr TPN CONT IV ; Start 07/10/19 at 22:00; Stop 07/10/19 at 14:17; Status DC Sodium Chloride 90 meq/Potassium Chloride 15 meq/ Potassium Phosphate 10 mmol/ Magnesium Sulfate 10 meq/Calcium Gluconate 20 meq/ Multivitamins 10 ml/Chromium/ Copper/Manganese/ Seleni/Zn 0.5 ml/ Total Parenteral Nutrition/Amino Acids/Dextrose/ Fat Emulsion Intravenous 1,200 ml @ 50 mls/hr TPN CONT IV Last administered on 07/10/19at 23:29; Start 07/10/19 at 22:00; Stop 07/11/19 at 21:59; Status DC Sodium Chloride 1,000 ml @ 1,000 mls/hr Q1H PRN IV hypotension; Start 07/11/19 at 07:28; Stop 07/11/19 at 13:27; Status DC Albumin Human 200 ml @ 200 mls/hr 1X ONCE IV Last administered on 07/11/19at 08:51; Start 07/11/19 at 07:30; Stop 07/11/19 at 08:29; Status DC Diphenhydramine HCl (Benadryl) 25 mg 1X PRN PRN IV ITCHING; Start 07/11/19 at 07:30; Stop 07/12/19 at 07:29; Status DC Diphenhydramine HCl (Benadryl) 25 mg 1X PRN PRN IV ITCHING; Start 07/11/19 at 07:30; Stop 07/12/19 at 07:29; Status DC Sodium Chloride 1,000 ml @ 400 mls/hr Q2H30M PRN IV PATENCY; Start 07/11/19 at 07:28; Stop 07/11/19 at 19:27; Status DC Info (PHARMACY MONITORING -- do not chart) 1 each PRN DAILY PRN MC SEE COMMENTS; Start 07/11/19 at 07:30; Stop 07/22/19 at 13:01; Status DC Metronidazole 100 ml @ 100 mls/hr Q6HRS IV Last administered on 07/27/19at 06:26; Start 07/11/19 at 08:30; Stop 07/27/19 at 09:58; Status DC Micafungin Sodium 100 mg/Dextrose 100 ml @ 100 mls/hr Q24H IV Last administered on 08/18/19at 08:18; Start 07/11/19 at 09:00; Stop 08/18/19 at 20:58; Status DC Propofol 0 ml @ As Directed STK-MED ONCE IV ; Start 07/11/19 at 07:53; Stop 07/11/19 at 07:53; Status DC Etomidate (Amidate) 20 mg STK-MED ONCE IV ; Start 07/11/19 at 07:53; Stop 07/11/19 at 07:54; Status DC Midazolam HCl (Versed) 5 mg STK-MED ONCE .ROUTE ; Start 07/11/19 at 07:57; Stop 07/11/19 at 07:57; Status DC Fentanyl Citrate 30 ml @ 0 mls/hr CONT PRN IV SEE PROTOCOL Last administered on 08/05/19at 06:12; Start 07/11/19 at 08:15; Stop 08/05/19 at 09:19; Status DC Artificial Tears (Artificial Tears) 1 drop PRN Q1HR PRN OU DRY EYE, 1st choice; Start 07/11/19 at 08:15; Stop 08/17/19 at 05:31; Status DC Midazolam HCl 50 mg/Sodium Chloride 50 ml @ 0 mls/hr CONT PRN IV SEE PROTOCOL Last administered on 07/14/19at 22:39; Start 07/11/19 at 08:15; Stop 07/16/19 at 15:59; Status DC Etomidate (Amidate) 8 mg 1X ONCE IV Last administered on 07/11/19at 08:33; Start 07/11/19 at 08:30; Stop 07/11/19 at 08:31; Status DC Succinylcholine Chloride (Anectine) 120 mg 1X ONCE IV Last administered on 07/11/19at 08:34; Start 07/11/19 at 08:30; Stop 07/11/19 at 08:31; Status DC Midazolam HCl (Versed) 5 mg 1X ONCE IV ; Start 07/11/19 at 08:30; Stop 07/11/19 at 08:31; Status DC Potassium Chloride 15 meq/ Bicarbonate Dialysis Soln w/ out KCl 5,007.5 ml @ 1,000 mls/ hr Q5H1M IV Last administered on 07/12/19at 11:11; Start 07/11/19 at 12:00; Stop 07/12/19 at 11:15; Status DC Potassium Chloride 15 meq/ Bicarbonate Dialysis Soln w/ out KCl 5,007.5 ml @ 1,000 mls/ hr Q5H1M IV Last administered on 07/12/19at 11:12; Start 07/11/19 at 12:00; Stop 07/12/19 at 11:17; Status DC Potassium Chloride 15 meq/ Bicarbonate Dialysis Soln w/ out KCl 5,007.5 ml @ 1,000 mls/ hr Q5H1M IV Last administered on 07/12/19at 11:11; Start 07/11/19 at 12:00; Stop 07/12/19 at 11:19; Status DC Sodium Chloride 90 meq/Potassium Chloride 15 meq/ Potassium Phosphate 10 mmol/ Magnesium Sulfate 10 meq/Calcium Gluconate 20 meq/ Multivitamins 10 ml/Chromium/ Copper/Manganese/ Seleni/Zn 0.5 ml/ Total Parenteral Nutrition/Amino Acids/Dextrose/ Fat Emulsion Intravenous 1,400 ml @ 58.333 mls/ hr TPN CONT IV Last administered on 07/11/19at 21:42; Start 07/11/19 at 22:00; Stop 07/12/19 at 21:59; Status DC Heparin Sodium (Porcine) (Heparin Sodium) 5,000 unit Q8HRS SQ Last administered on 07/16/19at 05:55; Start 07/11/19 at 15:00; Stop 07/16/19 at 13:28; Status DC Meropenem 500 mg/ Sodium Chloride 50 ml @ 100 mls/hr Q6HRS IV Last administered on 07/13/19at 06:00; Start 07/12/19 at 09:00; Stop 07/13/19 at 07:29; Status DC Potassium Phosphate 20 mmol/ Sodium Chloride 106.6667 ml @ 51.667 m... 1X ONCE IV Last administered on 07/12/19at 11:22; Start 07/12/19 at 10:15; Stop 07/12/19 at 12:18; Status DC Acetaminophen (Tylenol Supp) 650 mg PRN Q6HRS PRN HI MILD PAIN / TEMP > 100.3'F Last administered on 11/28/19at 15:43; Start 07/12/19 at 10:30 Potassium Chloride/Water 100 ml @ 100 mls/hr Q1H IV Last administered on 07/12/19at 12:12; Start 07/12/19 at 11:00; Stop 07/12/19 at 12:59; Status DC Potassium Chloride 20 meq/ Bicarbonate Dialysis Soln w/ out KCl 5,010 ml @ 1,000 mls/hr Q5H1M IV Last administered on 07/13/19at 08:48; Start 07/12/19 at 12:00; Stop 07/13/19 at 13:03; Status DC Potassium Chloride 20 meq/ Bicarbonate Dialysis Soln w/ out KCl 5,010 ml @ 1,000 mls/hr Q5H1M IV Last administered on 07/17/19at 14:52; Start 07/12/19 at 11:30; Stop 07/17/19 at 19:59; Status DC Potassium Chloride 20 meq/ Bicarbonate Dialysis Soln w/ out KCl 5,010 ml @ 1,000 mls/hr Q5H1M IV Last administered on 07/17/19at 14:53; Start 07/12/19 at 11:30; Stop 07/17/19 at 19:59; Status DC Sodium Chloride 90 meq/Potassium Chloride 15 meq/ Potassium Phosphate 15 mmol/ Magnesium Sulfate 10 meq/Calcium Gluconate 15 meq/ Multivitamins 10 ml/Chromium/ Copper/Manganese/ Seleni/Zn 0.5 ml/ Total Parenteral Nutrition/Amino Acids/Dextrose/ Fat Emulsion Intravenous 1,400 ml @ 58.333 mls/ hr TPN CONT IV Last administered on 07/12/19at 22:17; Start 07/12/19 at 22:00; Stop 07/13/19 at 21:59; Status DC Cefepime HCl (Maxipime) 2 gm Q12HR IVP Last administered on 07/26/19at 20:56; Start 07/13/19 at 09:00; Stop 07/27/19 at 09:58; Status DC Daptomycin 500 mg/ Sodium Chloride 50 ml @ 100 mls/hr Q48H IV Last administered on 07/29/19at 09:57; Start 07/13/19 at 08:30; Stop 07/29/19 at 10:07; Status DC Lidocaine HCl (Buffered Lidocaine 1%) 3 ml 1X ONCE INJ Last administered on 07/13/19at 10:27; Start 07/13/19 at 10:30; Stop 07/13/19 at 10:31; Status DC Potassium Phosphate 20 mmol/ Sodium Chloride 106.6667 ml @ 51.667 m... 1X ONCE IV Last administered on 07/13/19at 12:51; Start 07/13/19 at 13:00; Stop 07/13/19 at 15:03; Status DC Sodium Chloride 90 meq/Potassium Chloride 15 meq/ Potassium Phosphate 18 mmol/ Magnesium Sulfate 8 meq/Calcium Gluconate 15 meq/ Multivitamins 10 ml/Chromium/ Copper/Manganese/ Seleni/Zn 0.5 ml/ Total Parenteral Nutrition/Amino Acids/Dextrose/ Fat Emulsion Intravenous 1,400 ml @ 58.333 mls/ hr TPN CONT IV Last administered on 07/13/19at 22:16; Start 07/13/19 at 22:00; Stop 07/14/19 at 21:59; Status DC Potassium Chloride 20 meq/ Bicarbonate Dialysis Soln w/ out KCl 5,010 ml @ 1,000 mls/hr Q5H1M IV Last administered on 07/17/19at 14:54; Start 07/13/19 at 16:00; Stop 07/17/19 at 19:59; Status DC Multi-Ingred Cream/Lotion/Oil/ Oint (Artificial Tears Eye Ointment) 1 ramu PRN Q1HR PRN OU DRY EYE, 2nd choice Last administered on 08/01/19at 08:19; Start 07/13/19 at 17:30; Stop 09/21/19 at 14:39; Status DC Sodium Chloride 90 meq/Potassium Chloride 15 meq/ Potassium Phosphate 18 mmol/ Magnesium Sulfate 8 meq/Calcium Gluconate 15 meq/ Multivitamins 10 ml/Chromium/ Copper/Manganese/ Seleni/Zn 0.5 ml/ Total Parenteral Nutrition/Amino Acids/Dextrose/ Fat Emulsion Intravenous 1,400 ml @ 58.333 mls/ hr TPN CONT IV Last administered on 07/14/19at 22:00; Start 07/14/19 at 22:00; Stop 07/15/19 at 21:59; Status DC Albumin Human 500 ml @ 125 mls/hr 1X ONCE IV ; Start 07/14/19 at 14:15; Stop 07/14/19 at 18:14; Status DC Sodium Chloride 90 meq/Potassium Chloride 15 meq/ Potassium Phosphate 18 mmol/ Magnesium Sulfate 8 meq/Calcium Gluconate 15 meq/ Multivitamins 10 ml/Chromium/ Copper/Manganese/ Seleni/Zn 0.5 ml/ Insulin Human Regular 10 unit/ Total Parenteral Nutrition/Amino Acids/Dextrose/ Fat Emulsion Intravenous 1,400 ml @ 58.333 mls/ hr TPN CONT IV Last administered on 07/15/19at 21:43; Start 07/15/19 at 22:00; Stop 07/16/19 at 21:59; Status DC Lidocaine HCl (Buffered Lidocaine 1%) 3 ml STK-MED ONCE .ROUTE ; Start 07/13/19 at 10:00; Stop 07/15/19 at 13:57; Status DC Midazolam HCl 100 mg/Sodium Chloride 100 ml @ 7 mls/hr CONT PRN IV SEE PROTOCOL Last administered on 07/27/19at 15:35; Start 07/16/19 at 16:00; Stop 09/21/19 at 14:38; Status DC Sodium Chloride 90 meq/Potassium Chloride 15 meq/ Potassium Phosphate 18 mmol/ Magnesium Sulfate 8 meq/Calcium Gluconate 15 meq/ Multivitamins 10 ml/Chromium/ Copper/Manganese/ Seleni/Zn 0.5 ml/ Insulin Human Regular 15 unit/ Total Parenteral Nutrition/Amino Acids/Dextrose/ Fat Emulsion Intravenous 1,400 ml @ 58.333 mls/ hr TPN CONT IV Last administered on 07/16/19at 20:34; Start 07/16/19 at 22:00; Stop 07/17/19 at 21:59; Status DC Info (Icu Electrolyte Protocol) 1 ea CONT PRN PRN MC PER PROTOCOL; Start 07/17/19 at 13:15 Sodium Chloride 90 meq/Potassium Chloride 15 meq/ Potassium Phosphate 18 mmol/ Magnesium Sulfate 8 meq/Calcium Gluconate 15 meq/ Multivitamins 10 ml/Chromium/ Copper/Manganese/ Seleni/Zn 0.5 ml/ Insulin Human Regular 15 unit/ Total Parenteral Nutrition/Amino Acids/Dextrose/ Fat Emulsion Intravenous 1,400 ml @ 58.333 mls/ hr TPN CONT IV Last administered on 07/17/19at 22:05; Start 07/17/19 at 22:00; Stop 07/18/19 at 21:59; Status DC Potassium Chloride 15 meq/ Bicarbonate Dialysis Soln w/ out KCl 5,007.5 ml @ 1,000 mls/ hr Q5H1M IV Last administered on 07/20/19at 18:14; Start 07/17/19 at 20:00; Stop 07/21/19 at 13:08; Status DC Potassium Chloride 15 meq/ Bicarbonate Dialysis Soln w/ out KCl 5,007.5 ml @ 1,000 mls/ hr Q5H1M IV Last administered on 07/20/19at 18:14; Start 07/17/19 at 20:00; Stop 07/21/19 at 13:08; Status DC Potassium Chloride 15 meq/ Bicarbonate Dialysis Soln w/ out KCl 5,007.5 ml @ 1,000 mls/ hr Q5H1M IV Last administered on 07/20/19at 18:14; Start 07/17/19 at 20:00; Stop 07/21/19 at 13:08; Status DC Iohexol (Omnipaque 240 Mg/ml) 30 ml 1X ONCE PO Last administered on 07/18/19at 11:30; Start 07/18/19 at 11:30; Stop 07/18/19 at 11:33; Status DC Info (CONTRAST GIVEN -- Rx MONITORING) 1 each PRN DAILY PRN MC SEE COMMENTS; Start 07/18/19 at 11:45; Stop 07/20/19 at 11:44; Status DC Sodium Chloride 90 meq/Potassium Chloride 15 meq/ Potassium Phosphate 18 mmol/ Magnesium Sulfate 8 meq/Calcium Gluconate 15 meq/ Multivitamins 10 ml/Chromium/ Copper/Manganese/ Seleni/Zn 0.5 ml/ Insulin Human Regular 15 unit/ Total Parenteral Nutrition/Amino Acids/Dextrose/ Fat Emulsion Intravenous 1,400 ml @ 58.333 mls/ hr TPN CONT IV Last administered on 07/18/19at 21:47; Start 07/18/19 at 22:00; Stop 07/19/19 at 21:59; Status DC Sodium Chloride 90 meq/Potassium Chloride 15 meq/ Potassium Phosphate 18 mmol/ Magnesium Sulfate 8 meq/Calcium Gluconate 15 meq/ Multivitamins 10 ml/Chromium/ Copper/Manganese/ Seleni/Zn 0.5 ml/ Insulin Human Regular 20 unit/ Total Parenteral Nutrition/Amino Acids/Dextrose/ Fat Emulsion Intravenous 1,400 ml @ 58.333 mls/ hr TPN CONT IV Last administered on 07/19/19at 21:36; Start 07/19/19 at 22:00; Stop 07/20/19 at 21:59; Status DC Alteplase, Recombinant (Cathflo For Central Catheter Clearance) 1 mg 1X ONCE INT CAT Last administered on 07/19/19at 20:03; Start 07/19/19 at 19:30; Stop 07/19/19 at 19:46; Status DC Alteplase, Recombinant (Cathflo For Central Catheter Clearance) 1 mg 1X ONCE INT CAT Last administered on 07/19/19at 22:05; Start 07/19/19 at 22:00; Stop 07/19/19 at 22:01; Status DC Sodium Chloride 90 meq/Potassium Chloride 15 meq/ Potassium Phosphate 18 mmol/ Magnesium Sulfate 8 meq/Calcium Gluconate 15 meq/ Multivitamins 10 ml/Chromium/ Copper/Manganese/ Seleni/Zn 0.5 ml/ Insulin Human Regular 20 unit/ Total Parenteral Nutrition/Amino Acids/Dextrose/ Fat Emulsion Intravenous 1,400 ml @ 58.333 mls/ hr TPN CONT IV Last administered on 07/20/19at 21:30; Start 07/20/19 at 22:00; Stop 07/21/19 at 21:59; Status DC Dexmedetomidine HCl 400 mcg/ Sodium Chloride 100 ml @ 0 mls/hr CONT PRN IV ANXIETY / AGITATION Last administered on 09/17/19at 12:57; Start 07/21/19 at 08:15; Stop 09/17/19 at 18:31; Status DC Sodium Chloride 500 ml @ 500 mls/hr 1X PRN PRN IV ELEVATED BP, SEE COMMENTS; Start 07/21/19 at 08:15; Stop 11/23/19 at 09:08; Status DC Atropine Sulfate (ATROPINE 0.5mg SYRINGE) 0.5 mg PRN Q5MIN PRN IV SEE COMMENTS; Start 07/21/19 at 08:15; Stop 11/21/19 at 09:45; Status DC Furosemide (Lasix) 20 mg 1X ONCE IVP Last administered on 07/21/19at 08:19; Start 07/21/19 at 08:15; Stop 07/21/19 at 08:16; Status DC Lidocaine HCl (Buffered Lidocaine 1%) 3 ml STK-MED ONCE .ROUTE ; Start 07/21/19 at 08:39; Stop 07/21/19 at 08:39; Status DC Lidocaine HCl (Buffered Lidocaine 1%) 6 ml 1X ONCE INJ Last administered on 07/21/19at 09:05; Start 07/21/19 at 09:00; Stop 07/21/19 at 09:06; Status DC Sodium Chloride 90 meq/Potassium Chloride 15 meq/ Potassium Phosphate 18 mmol/ Magnesium Sulfate 8 meq/Calcium Gluconate 15 meq/ Multivitamins 10 ml/Chromium/ Copper/Manganese/ Seleni/Zn 0.5 ml/ Insulin Human Regular 20 unit/ Total Parenteral Nutrition/Amino Acids/Dextrose/ Fat Emulsion Intravenous 1,400 ml @ 58.333 mls/ hr TPN CONT IV Last administered on 07/21/19at 22:45; Start 07/21/19 at 22:00; Stop 07/22/19 at 21:59; Status DC Sodium Chloride 1,000 ml @ 1,000 mls/hr Q1H PRN IV hypotension; Start 07/22/19 at 07:30; Stop 07/22/19 at 13:29; Status DC Albumin Human 200 ml @ 200 mls/hr 1X PRN PRN IV Hypotension Last administered on 07/22/19at 09:36; Start 07/22/19 at 07:30; Stop 07/22/19 at 13:29; Status DC Sodium Chloride (Normal Saline Flush) 10 ml 1X PRN PRN IV AP catheter pack; Start 07/22/19 at 07:30; Stop 07/22/19 at 21:29; Status DC Sodium Chloride (Normal Saline Flush) 10 ml 1X PRN PRN IV BISQUE KILN PLACER catheter pack; Start 07/22/19 at 07:30; Stop 07/23/19 at 07:29; Status DC Sodium Chloride 1,000 ml @ 400 mls/hr Q2H30M PRN IV PATENCY; Start 07/22/19 at 07:30; Stop 07/22/19 at 19:29; Status DC Info (PHARMACY MONITORING -- do not chart) 1 each PRN DAILY PRN MC SEE COMMENTS; Start 07/22/19 at 07:30; Stop 07/22/19 at 13:02; Status DC Info (PHARMACY MONITORING -- do not chart) 1 each PRN DAILY PRN MC SEE COMMENTS; Start 07/22/19 at 07:30; Stop 07/24/19 at 12:45; Status DC Sodium Chloride 90 meq/Potassium Chloride 15 meq/ Potassium Phosphate 10 mmol/ Magnesium Sulfate 8 meq/Calcium Gluconate 15 meq/ Multivitamins 10 ml/Chromium/ Copper/Manganese/ Seleni/Zn 0.5 ml/ Insulin Human Regular 25 unit/ Total Pa renteral Nutrition/Amino Acids/Dextrose/ Fat Emulsion Intravenous 1,400 ml @ 58.333 mls/ hr TPN CONT IV Last administered on 07/22/19at 22:19; Start 07/22/19 at 22:00; Stop 07/23/19 at 21:59; Status DC Heparin Sodium (Porcine) (Heparin Sodium) 5,000 unit Q12HR SQ Last administered on 08/14/19at 08:59; Start 07/22/19 at 21:00; Stop 08/14/19 at 10:05; Status DC Ondansetron HCl (Zofran) 4 mg PRN Q6HRS PRN IV NAUSEA/VOMITING; Start 07/25/19 at 07:00; Stop 07/26/19 at 06:59; Status DC Fentanyl Citrate (Fentanyl 2ml Vial) 25 mcg PRN Q5MIN PRN IV MILD PAIN 1-3; Start 07/25/19 at 07:00; Stop 07/26/19 at 06:59; Status DC Fentanyl Citrate (Fentanyl 2ml Vial) 50 mcg PRN Q5MIN PRN IV MODERATE TO SEVERE PAIN; Start 07/25/19 at 07:00; Stop 07/26/19 at 06:59; Status DC Ringer's Solution 1,000 ml @ 30 mls/hr Q24H IV ; Start 07/25/19 at 07:00; Stop 07/25/19 at 18:59; Status DC Lidocaine HCl (Xylocaine-Mpf 1% 2ml Vial) 2 ml PRN 1X PRN ID PRIOR TO IV START; Start 07/25/19 at 07:00; Stop 07/26/19 at 06:59; Status DC Prochlorperazine Edisylate (Compazine) 5 mg PACU PRN PRN IV NAUSEA, MRX1; Start 07/25/19 at 07:00; Stop 07/26/19 at 06:59; Status DC Sodium Chloride 1,000 ml @ 1,000 mls/hr Q1H PRN IV hypotension; Start 07/23/19 at 09:10; Stop 07/23/19 at 15:09; Status DC Albumin Human 200 ml @ 200 mls/hr 1X PRN PRN IV Hypotension Last administered on 07/23/19at 10:10; Start 07/23/19 at 09:15; Stop 07/23/19 at 15:14; Status DC Sodium Chloride 1,000 ml @ 400 mls/hr Q2H30M PRN IV PATENCY; Start 07/23/19 at 09:10; Stop 07/23/19 at 21:09; Status DC Info (PHARMACY MONITORING -- do not chart) 1 each PRN DAILY PRN MC SEE COMMENTS; Start 07/23/19 at 09:15; Stop 07/24/19 at 12:45; Status DC Info (PHARMACY MONITORING -- do not chart) 1 each PRN DAILY PRN MC SEE COMMENTS; Start 07/23/19 at 09:15; Stop 07/24/19 at 12:45; Status DC Sodium Chloride 90 meq/Potassium Chloride 15 meq/ Potassium Phosphate 10 mmol/ Magnesium Sulfate 8 meq/Calcium Gluconate 15 meq/ Multivitamins 10 ml/Chromium/ Copper/Manganese/ Seleni/Zn 0.5 ml/ Insulin Human Regular 25 unit/ Total Parenteral Nutrition/Amino Acids/Dextrose/ Fat Emulsion Intravenous 1,400 ml @ 58.333 mls/ hr TPN CONT IV Last administered on 07/23/19at 22:10; Start 07/23/19 at 22:00; Stop 07/24/19 at 21:59; Status DC Magnesium Sulfate 50 ml @ 25 mls/hr PRN DAILY PRN IV for Mag < 1.7 on am labs Last administered on 10/06/19at 10:57; Start 07/24/19 at 09:15 Sodium Chloride 90 meq/Potassium Chloride 15 meq/ Potassium Phosphate 10 mmol/ Magnesium Sulfate 8 meq/Calcium Gluconate 15 meq/ Multivitamins 10 ml/Chromium/ Copper/Manganese/ Seleni/Zn 0.5 ml/ Insulin Human Regular 25 unit/ Total Parenteral Nutrition/Amino Acids/Dextrose/ Fat Emulsion Intravenous 1,400 ml @ 58.333 mls/ hr TPN CONT IV Last administered on 07/24/19at 21:20; Start 07/24/19 at 22:00; Stop 07/25/19 at 21:59; Status DC Sodium Chloride 1,000 ml @ 1,000 mls/hr Q1H PRN IV hypotension; Start 07/24/19 at 12:23; Stop 07/24/19 at 18:22; Status DC Albumin Human 200 ml @ 200 mls/hr 1X ONCE IV Last administered on 07/24/19at 13:34; Start 07/24/19 at 12:30; Stop 07/24/19 at 13:29; Status DC Diphenhydramine HCl (Benadryl) 25 mg 1X PRN PRN IV ITCHING; Start 07/24/19 at 12:30; Stop 07/25/19 at 12:29; Status DC Diphenhydramine HCl (Benadryl) 25 mg 1X PRN PRN IV ITCHING; Start 07/24/19 at 12:30; Stop 07/25/19 at 12:29; Status DC Info (PHARMACY MONITORING -- do not chart) 1 each PRN DAILY PRN MC SEE COMMENTS; Start 07/24/19 at 12:30; Status Cancel Bupivacaine HCl/ Epinephrine Bitart (Sensorcain-Epi 0.5%-1:[id number] Mpf) 30 ml STK-MED ONCE .ROUTE Last administered on 07/25/19at 11:44; Start 07/25/19 at 11:00; Stop 07/25/19 at 11:01; Status DC Cellulose (Surgicel Fibrillar 1x2) 1 each STK-MED ONCE .ROUTE ; Start 07/25/19 at 11:00; Stop 07/25/19 at 11:01; Status DC Sodium Chloride 90 meq/Potassium Chloride 15 meq/ Potassium Phosphate 10 mmol/ Magnesium Sulfate 12 meq/Calcium Gluconate 15 meq/ Multivitamins 10 ml/Chromium/ Copper/Manganese/ Seleni/Zn 0.5 ml/ Insulin Human Regular 25 unit/ Total Parenteral Nutrition/Amino Acids/Dextrose/ Fat Emulsion Intravenous 1,400 ml @ 58.333 mls/ hr TPN CONT IV Last administered on 07/25/19at 22:24; Start 07/25/19 at 22:00; Stop 07/26/19 at 21:59; Status DC Propofol 20 ml @ As Directed STK-MED ONCE IV ; Start 07/25/19 at 11:07; Stop 07/25/19 at 11:07; Status DC Cellulose (Surgicel Hemostat 4x8) 1 each STK-MED ONCE .ROUTE Last administered on 07/25/19at 11:44; Start 07/25/19 at 11:55; Stop 07/25/19 at 11:56; Status DC Sevoflurane (Ultane) 60 ml STK-MED ONCE IH ; Start 07/25/19 at 12:46; Stop 07/25/19 at 12:46; Status DC Sodium Chloride 1,000 ml @ 1,000 mls/hr Q1H PRN IV hypotension; Start 07/25/19 at 13:51; Stop 07/25/19 at 19:50; Status DC Albumin Human 200 ml @ 200 mls/hr 1X PRN PRN IV Hypotension Last administered on 07/25/19at 14:51; Start 07/25/19 at 14:00; Stop 07/25/19 at 19:59; Status DC Diphenhydramine HCl (Benadryl) 25 mg 1X PRN PRN IV ITCHING; Start 07/25/19 at 14:00; Stop 07/26/19 at 13:59; Status DC Diphenhydramine HCl (Benadryl) 25 mg 1X PRN PRN IV ITCHING; Start 07/25/19 at 14:00; Stop 07/26/19 at 13:59; Status DC Sodium Chloride 1,000 ml @ 400 mls/hr Q2H30M PRN IV PATENCY; Start 07/25/19 at 13:51; Stop 07/26/19 at 01:50; Status DC Info (PHARMACY MONITORING -- do not chart) 1 each PRN DAILY PRN MC SEE COMMENTS; Start 07/25/19 at 14:00; Stop 07/28/19 at 08:16; Status DC Heparin Sodium (Porcine) (Hep Lock Adult) 500 unit STK-MED ONCE IVP ; Start 07/26/19 at 09:29; Stop 07/26/19 at 09:30; Status DC Sodium Chloride 1,000 ml @ 1,000 mls/hr Q1H PRN IV hypotension; Start 07/26/19 at 10:43; Stop 07/26/19 at 16:42; Status DC Sodium Chloride 1,000 ml @ 400 mls/hr Q2H30M PRN IV PATENCY; Start 07/26/19 at 10:43; Stop 07/26/19 at 22:42; Status DC Info (PHARMACY MONITORING -- do not chart) 1 each PRN DAILY PRN MC SEE COMMENTS; Start 07/26/19 at 10:45; Status UNV Info (PHARMACY MONITORING -- do not chart) 1 each PRN DAILY PRN MC SEE COMMENTS; Start 07/26/19 at 10:45; Status UNV Sodium Chloride 90 meq/Potassium Chloride 15 meq/ Magnesium Sulfate 12 meq/Calcium Gluconate 15 meq/ Multivitamins 10 ml/Chromium/ Copper/Manganese/ Seleni/Zn 0.5 ml/ Insulin Human Regular 25 unit/ Total Parenteral Nutrition/Amino Acids/Dextrose/ Fat Emulsion Intravenous 1,400 ml @ 58.333 mls/ hr TPN CONT IV Last administered on 07/26/19at 22:13; Start 07/26/19 at 22:00; Stop 07/27/19 at 21:59; Status DC Sodium Chloride 1,000 ml @ 1,000 mls/hr Q1H PRN IV hypotension; Start 07/27/19 at 07:50; Stop 07/27/19 at 13:49; Status DC Albumin Human 200 ml @ 200 mls/hr 1X ONCE IV ; Start 07/27/19 at 08:00; Stop 07/27/19 at 08:53; Status DC Diphenhydramine HCl (Benadryl) 25 mg 1X PRN PRN IV ITCHING; Start 07/27/19 at 08:00; Stop 07/28/19 at 07:59; Status DC Diphenhydramine HCl (Benadryl) 25 mg 1X PRN PRN IV ITCHING; Start 07/27/19 at 08:00; Stop 07/28/19 at 07:59; Status DC Info (PHARMACY MONITORING -- do not chart) 1 each PRN DAILY PRN MC SEE COMMENTS; Start 07/27/19 at 08:00; Stop 07/28/19 at 08:16; Status DC Albumin Human 50 ml @ 50 mls/hr 1X ONCE IV ; Start 07/27/19 at 08:53; Stop 07/27/19 at 08:56; Status DC Albumin Human 200 ml @ 50 mls/hr PRN 1X PRN IV HYPOTENSION Last administered on 08/02/19at 11:54; Start 07/27/19 at 09:00; Stop 09/08/19 at 11:14; Status DC Meropenem 500 mg/ Sodium Chloride 50 ml @ 100 mls/hr Q12H IV Last administered on 08/16/19at 10:45; Start 07/27/19 at 10:00; Stop 08/16/19 at 12:37; Status DC Sodium Chloride 90 meq/Magnesium Sulfate 12 meq/ Calcium Gluconate 15 meq/ Multivitamins 10 ml/Chromium/ Copper/Manganese/ Seleni/Zn 0.5 ml/ Insulin Human Regular 25 unit/ Total Parenteral Nutrition/Amino Acids/Dextrose/ Fat Emulsion Intravenous 1,400 ml @ 58.333 mls/ hr TPN CONT IV Last administered on 07/27/19at 21:41; Start 07/27/19 at 22:00; Stop 07/28/19 at 21:59; Status DC Sodium Chloride 1,000 ml @ 1,000 mls/hr Q1H PRN IV hypotension; Start 07/28/19 at 07:58; Stop 07/28/19 at 13:57; Status DC Albumin Human 200 ml @ 200 mls/hr 1X PRN PRN IV Hypotension Last administered on 07/28/19at 09:30; Start 07/28/19 at 08:00; Stop 07/28/19 at 13:59; Status DC Sodium Chloride 1,000 ml @ 400 mls/hr Q2H30M PRN IV PATENCY; Start 07/28/19 at 07:58; Stop 07/28/19 at 19:57; Status DC Info (PHARMACY MONITORING -- do not chart) 1 each PRN DAILY PRN MC SEE COMMENTS; Start 07/28/19 at 08:00; Status Cancel Info (PHARMACY MONITORING -- do not chart) 1 each PRN DAILY PRN MC SEE COMMENTS; Start 07/28/19 at 08:15; Status UNV Sodium Chloride 90 meq/Potassium Phosphate 5 mmol/ Magnesium Sulfate 12 meq/Calcium Gluconate 15 meq/ Multivitamins 10 ml/Chromium/ Copper/Manganese/ Seleni/Zn 0.5 ml/ Insulin Human Regular 30 unit/ Total Parenteral Nutrition/Amino Acids/Dextrose/ Fat Emulsion Intravenous 1,400 ml @ 58.333 mls/ hr TPN CONT IV Last administered on 07/28/19at 22:08; Start 07/28/19 at 22:00; Stop 07/29/19 at 21:59; Status DC Linezolid/Dextrose 300 ml @ 300 mls/hr Q12HR IV Last administered on 08/08/19at 20:40; Start 07/29/19 at 11:00; Stop 08/09/19 at 08:10; Status DC Sodium Chloride 90 meq/Potassium Phosphate 15 mmol/ Magnesium Sulfate 12 meq/Calcium Gluconate 15 meq/ Multivitamins 10 ml/Chromium/ Copper/Manganese/ Seleni/Zn 0.5 ml/ Insulin Human Regular 30 unit/ Total Parenteral Nutrition/Amino Acids/Dextrose/ Fat Emulsion Intravenous 1,400 ml @ 58.333 mls/ hr TPN CONT IV Last administered on 07/29/19at 21:49; Start 07/29/19 at 22:00; Stop 07/30/19 at 21:59; Status DC Sodium Chloride 90 meq/Potassium Phosphate 15 mmol/ Magnesium Sulfate 12 meq/C alcium Gluconate 15 meq/ Multivitamins 10 ml/Chromium/ Copper/Manganese/ Seleni/Zn 0.5 ml/ Insulin Human Regular 40 unit/ Total Parenteral Nutrition/Amino Acids/Dextrose/ Fat Emulsion Intravenous 1,400 ml @ 58.333 mls/ hr TPN CONT IV Last administered on 07/30/19at 21:21; Start 07/30/19 at 22:00; Stop 07/31/19 at 21:59; Status DC Sodium Chloride 1,000 ml @ 1,000 mls/hr Q1H PRN IV hypotension; Start 07/30/19 at 13:26; Stop 07/30/19 at 19:25; Status DC Albumin Human 200 ml @ 200 mls/hr 1X PRN PRN IV Hypotension Last administered on 07/30/19at 15:00; Start 07/30/19 at 13:30; Stop 07/30/19 at 19:29; Status DC Sodium Chloride (Normal Saline Flush) 10 ml 1X PRN PRN IV AP catheter pack; Start 07/30/19 at 13:30; Stop 07/31/19 at 13:29; Status DC Sodium Chloride (Normal Saline Flush) 10 ml 1X PRN PRN IV BIS[employer] catheter pack; Start 07/30/19 at 13:30; Stop 07/31/19 at 13:29; Status DC Sodium Chloride 1,000 ml @ 400 mls/hr Q2H30M PRN IV PATENCY; Start 07/30/19 at 13:26; Stop 07/31/19 at 01:25; Status DC Info (PHARMACY MONITORING -- do not chart) 1 each PRN DAILY PRN MC SEE COMMENTS; Start 07/30/19 at 13:30; Stop 07/30/19 at 13:33; Status DC Info (PHARMACY MONITORING -- do not chart) 1 each PRN DAILY PRN MC SEE COMMENTS; Start 07/30/19 at 13:30; Stop 07/30/19 at 13:34; Status DC Sodium Chloride 90 meq/Potassium Phosphate 19 mmol/ Magnesium Sulfate 12 meq/Calcium Gluconate 15 meq/ Multivitamins 10 ml/Chromium/ Copper/Manganese/ Seleni/Zn 0.5 ml/ Insulin Human Regular 40 unit/ Total Parenteral Nutrition/Amino Acids/Dextrose/ Fat Emulsion Intravenous 1,400 ml @ 58.333 mls/ hr TPN CONT IV Last administered on 07/31/19at 21:54; Start 07/31/19 at 22:00; Stop 08/01/19 at 21:59; Status DC Sodium Chloride 1,000 ml @ 1,000 mls/hr Q1H PRN IV hypotension; Start 08/01/19 at 09:35; Stop 08/01/19 at 15:34; Status DC Albumin Human 200 ml @ 200 mls/hr 1X PRN PRN IV Hypotension; Start 08/01/19 at 09:45; Stop 08/01/19 at 15:44; Status DC Diphenhydramine HCl (Benadryl) 25 mg 1X PRN PRN IV ITCHING; Start 08/01/19 at 09:45; Stop 08/02/19 at 09:44; Status DC Diphenhydramine HCl (Benadryl) 25 mg 1X PRN PRN IV ITCHING; Start 08/01/19 at 09:45; Stop 08/02/19 at 09:44; Status DC Sodium Chloride 1,000 ml @ 400 mls/hr Q2H30M PRN IV PATENCY; Start 08/01/19 at 09:35; Stop 08/01/19 at 21:34; Status DC Info (PHARMACY MONITORING -- do not chart) 1 each PRN DAILY PRN MC SEE COMMENTS; Start 08/01/19 at 09:45; Status Cancel Sodium Chloride 100 meq/Potassium Phosphate 19 mmol/ Magnesium Sulfate 12 meq/Calcium Gluconate 15 meq/ Multivitamins 10 ml/Chromium/ Copper/Manganese/ Seleni/Zn 0.5 ml/ Insulin Human Regular 40 unit/ Potassium Chloride 20 meq/ Total Parenteral Nutrition/Amino Acids/Dextrose/ Fat Emulsion Intravenous 1,400 ml @ 58.333 mls/ hr TPN CONT IV Last administered on 08/01/19at 22:02; Start 08/01/19 at 22:00; Stop 08/02/19 at 21:59; Status DC Furosemide (Lasix) 40 mg 1X ONCE IVP Last administered on 08/01/19at 14:39; Start 08/01/19 at 14:30; Stop 08/01/19 at 14:31; Status DC Metronidazole 100 ml @ 100 mls/hr Q8HRS IV Last administered on 08/09/19at 06:04; Start 08/02/19 at 10:00; Stop 08/09/19 at 08:10; Status DC Sodium Chloride 1,000 ml @ 1,000 mls/hr Q1H PRN IV hypotension; Start 08/02/19 at 08:00; Stop 08/02/19 at 13:59; Status DC Albumin Human 200 ml @ 200 mls/hr 1X PRN PRN IV Hypotension; Start 08/02/19 at 08:00; Stop 08/02/19 at 13:59; Status DC Sodium Chloride 1,000 ml @ 400 mls/hr Q2H30M PRN IV PATENCY; Start 08/02/19 at 08:00; Stop 08/02/19 at 19:59; Status DC Info (PHARMACY MONITORING -- do not chart) 1 each PRN DAILY PRN MC SEE COMMENTS; Start 08/02/19 at 11:30; Status UNV Info (PHARMACY MONITORING -- do not chart) 1 each PRN DAILY PRN MC SEE COMMENTS; Start 08/02/19 at 11:30; Stop 08/04/19 at 12:13; Status DC Sodium Chloride 100 meq/Potassium Phosphate 19 mmol/ Magnesium Sulfate 12 meq/Calcium Gluconate 15 meq/ Multivitamins 10 ml/Chromium/ Copper/Manganese/ Seleni/Zn 0.5 ml/ Insulin Human Regular 40 unit/ Potassium Chloride 20 meq/ Total Parenteral Nutrition/Amino Acids/Dextrose/ Fat Emulsion Intravenous 1,400 ml @ 58.333 mls/ hr TPN CONT IV Last administered on 08/02/19at 21:52; Start 08/02/19 at 22:00; Stop 08/03/19 at 21:59; Status DC Sodium Chloride (Normal Saline Flush) 10 ml QSHIFT PRN IV AFTER MEDS AND BLOOD DRAWS; Start 08/02/19 at 15:00; Stop 08/30/19 at 11:27; Status DC Sodium Chloride (Normal Saline Flush) 10 ml PRN Q5MIN PRN IV AFTER MEDS AND BLOOD DRAWS; Start 08/02/19 at 15:00; Stop 11/19/19 at 10:12; Status DC Sodium Chloride (Normal Saline Flush) 20 ml PRN Q5MIN PRN IV AFTER MEDS AND BLOOD DRAWS; Start 08/02/19 at 15:00 Sodium Chloride 100 meq/Potassium Phosphate 19 mmol/ Magnesium Sulfate 12 meq/Calcium Gluconate 15 meq/ Multivitamins 10 ml/Chromium/ Copper/Manganese/ Seleni/Zn 0.5 ml/ Insulin Human Regular 40 unit/ Potassium Chloride 20 meq/ Total Parenteral Nutrition/Amino Acids/Dextrose/ Fat Emulsion Intravenous 1,400 ml @ 58.333 mls/ hr TPN CONT IV Last administered on 08/03/19at 21:20; Start 08/03/19 at 22:00; Stop 08/04/19 at 21:59; Status DC Lidocaine HCl (Buffered Lidocaine 1%) 3 ml STK-MED ONCE .ROUTE ; Start 08/03/19 at 13:16; Stop 08/03/19 at 13:16; Status DC Lidocaine HCl (Buffered Lidocaine 1%) 6 ml 1X ONCE INJ Last administered on 08/03/19at 13:45; Start 08/03/19 at 13:30; Stop 08/03/19 at 13:31; Status DC Albumin Human 100 ml @ 100 mls/hr 1X ONCE IV Last administered on 08/03/19at 15:41; Start 08/03/19 at 15:00; Stop 08/03/19 at 15:59; Status DC Albumin Human 50 ml @ 50 mls/hr 1X ONCE IV Last administered on 08/03/19at 15:00; Start 08/03/19 at 15:00; Stop 08/03/19 at 15:59; Status DC Info (PHARMACY MONITORING -- do not chart) 1 each PRN DAILY PRN MC SEE COMMENTS; Start 08/04/19 at 11:30; Status Cancel Info (PHARMACY MONITORING -- do not chart) 1 each PRN DAILY PRN MC SEE COMMENTS; Start 08/04/19 at 11:30; Status UNV Sodium Chloride 100 meq/Potassium Phosphate 10 mmol/ Magnesium Sulfate 12 meq/Calcium Gluconate 15 meq/ Multivitamins 10 ml/Chromium/ Copper/Manganese/ Seleni/Zn 0.5 ml/ Insulin Human Regular 35 unit/ Potassium Chloride 20 meq/ Total Parenteral Nutrition/Amino Acids/Dextrose/ Fat Emulsion Intravenous 1,400 ml @ 58.333 mls/ hr TPN CONT IV Last administered on 08/04/19at 22:10; Start 08/04/19 at 22:00; Stop 08/05/19 at 21:59; Status DC Sodium Chloride 100 meq/Potassium Phosphate 5 mmol/ Magnesium Sulfate 12 meq/Calcium Gluconate 15 meq/ Multivitamins 10 ml/Chromium/ Copper/Manganese/ Seleni/Zn 0.5 ml/ Insulin Human Regular 35 unit/ Potassium Chloride 20 meq/ Total Parenteral Nutrition/Amino Acids/Dextrose/ Fat Emulsion Intravenous 1,400 ml @ 58.333 mls/ hr TPN CONT IV Last administered on 08/05/19at 22:59; Start 08/05/19 at 22:00; Stop 08/06/19 at 21:59; Status DC Sodium Chloride 1,000 ml @ 1,000 mls/hr Q1H PRN IV hypotension; Start 08/06/19 at 08:27; Stop 08/06/19 at 14:26; Status DC Albumin Human 200 ml @ 200 mls/hr 1X PRN PRN IV Hypotension Last administered on 08/06/19at 09:18; Start 08/06/19 at 08:30; Stop 08/06/19 at 14:29; Status DC Sodium Chloride 1,000 ml @ 400 mls/hr Q2H30M PRN IV PATENCY; Start 08/06/19 at 08:27; Stop 08/06/19 at 20:26; Status DC Info (PHARMACY MONITORING -- do not chart) 1 each PRN DAILY PRN MC SEE COMMENTS; Start 08/06/19 at 08:30; Status Cancel Info (PHARMACY MONITORING -- do not chart) 1 each PRN DAILY PRN MC SEE COMMENTS; Start 08/06/19 at 08:30; Stop 08/14/19 at 13:10; Status DC Sodium Chloride 100 meq/Potassium Chloride 40 meq/ Magnesium Sulfate 15 meq/Calcium Gluconate 15 meq/ Multivitamins 10 ml/Chromium/ Copper/Manganese/ Seleni/Zn 0.5 ml/ Insulin Human Regular 35 unit/ Total Parenteral Nutrition/A jeb Acids/Dextrose/ Fat Emulsion Intravenous 1,400 ml @ 58.333 mls/ hr TPN CONT IV Last administered on 08/06/19at 22:00; Start 08/06/19 at 22:00; Stop 08/07/19 at 21:59; Status DC Potassium Chloride/Water 100 ml @ 100 mls/hr 1X ONCE IV Last administered on 08/06/19at 17:28; Start 08/06/19 at 14:45; Stop 08/06/19 at 15:44; Status DC Sodium Chloride 100 meq/Potassium Chloride 40 meq/ Magnesium Sulfate 15 meq/Calcium Gluconate 15 meq/ Multivitamins 10 ml/Chromium/ Copper/Manganese/ Seleni/Zn 0.5 ml/ Insulin Human Regular 35 unit/ Total Parenteral Nutrition/Amino Acids/Dextrose/ Fat Emulsion Intravenous 1,400 ml @ 58.333 mls/ hr TPN CONT IV Last administered on 08/07/19at 22:46; Start 08/07/19 at 22:00; Stop 08/08/19 at 21:59; Status DC Sodium Chloride 100 meq/Potassium Chloride 40 meq/ Magnesium Sulfate 20 meq/Calcium Gluconate 15 meq/ Multivitamins 10 ml/Chromium/ Copper/Manganese/ Seleni/Zn 0.5 ml/ Insulin Human Regular 35 unit/ Total Parenteral Nutrition/Amino Acids/Dextrose/ Fat Emulsion Intravenous 1,400 ml @ 58.333 mls/ hr TPN CONT IV Last administered on 08/08/19at 22:31; Start 08/08/19 at 22:00; Stop 08/09/19 at 21:59; Status DC Fentanyl Citrate (Fentanyl 2ml Vial) 50 mcg PRN Q2HR PRN IVP PAIN Last administered on 08/15/19at 13:32; Start 08/08/19 at 21:00; Stop 08/16/19 at 12:53; Status DC Fentanyl Citrate (Fentanyl 2ml Vial) 25 mcg PRN Q2HR PRN IVP PAIN; Start at 21:00; Stop 08/16/19 at 12:54; Status DC Enoxaparin Sodium (Lovenox 100mg Syringe) 100 mg Q12HR SQ ; Start 08/09/19 at 21:00; Status UNV Amino Acids/ Glycerin/ Electrolytes 1,000 ml @ 75 mls/hr [id number] IV ; Start 08/08/19 at 21:15; Status UNV Sodium Chloride 1,000 ml @ 1,000 mls/hr Q1H PRN IV hypotension; Start 08/09/19 at 07:56; Stop 08/09/19 at 13:55; Status DC Albumin Human 200 ml @ 200 mls/hr 1X PRN PRN IV Hypotension Last administered on 08/09/19at 08:40; Start 08/09/19 at 08:00; Stop 08/09/19 at 13:59; Status DC Sodium Chloride 1,000 ml @ 400 mls/hr Q2H30M PRN IV PATENCY; Start 08/09/19 at 07:56; Stop 08/09/19 at 19:55; Status DC Info (PHARMACY MONITORING -- do not chart) 1 each PRN DAILY PRN MC SEE COMMENTS; Start 08/09/19 at 08:00; Status UNV Info (PHARMACY MONITORING -- do not chart) 1 each PRN DAILY PRN MC SEE COMMENTS; Start 08/09/19 at 08:00; Status UNV Daptomycin 430 mg/ Sodium Chloride 50 ml @ 100 mls/hr Q24H IV Last administered on 08/09/19at 12:35; Start 08/09/19 at 09:00; Stop 08/09/19 at 12:49; Status DC Sodium Chloride 100 meq/Potassium Chloride 40 meq/ Magnesium Sulfate 20 meq/Calcium Gluconate 15 meq/ Multivitamins 10 ml/Chromium/ Copper/Manganese/ Seleni/Zn 0.5 ml/ Insulin Human Regular 35 unit/ Total Parenteral N utrition/Amino Acids/Dextrose/ Fat Emulsion Intravenous 1,400 ml @ 58.333 mls/ hr TPN CONT IV Last administered on 08/09/19at 21:26; Start 08/09/19 at 22:00; Stop 08/10/19 at 21:59; Status DC Daptomycin 430 mg/ Sodium Chloride 50 ml @ 100 mls/hr Q48H IV ; Start 08/11/19 at 09:00; Stop 08/10/19 at 11:55; Status DC Sodium Chloride 100 meq/Potassium Chloride 40 meq/ Magnesium Sulfate 20 meq/Calcium Gluconate 15 meq/ Multivitamins 10 ml/Chromium/ Copper/Manganese/ Seleni/Zn 0.5 ml/ Insulin Human Regular 35 unit/ Total Parenteral Nutrition/Amino Acids/Dextrose/ Fat Emulsion Intravenous 1,400 ml @ 58.333 mls/ hr TPN CONT IV Last administered on 08/10/19at 22:27; Start 08/10/19 at 22:00; Stop 08/11/19 at 21:59; Status DC Daptomycin 430 mg/ Sodium Chloride 50 ml @ 100 mls/hr Q24H IV Last administered on 08/12/19at 15:07; Start 08/10/19 at 13:00; Stop 08/13/19 at 13:15; Status DC Sodium Chloride 100 meq/Potassium Chloride 40 meq/ Magnesium Sulfate 20 meq/Calcium Gluconate 10 meq/ Multivitamins 10 ml/Chromium/ Copper/Manganese/ Seleni/Zn 0.5 ml/ Insulin Human Regular 35 unit/ Total Parenteral Nutrition/Amino Acids/Dextrose/ Fat Emulsion Intravenous 1,400 ml @ 58.333 mls/ hr TPN CONT IV Last administered on 08/12/19at 00:06; Start 08/11/19 at 22:00; Stop 08/12/19 at 21:59; Status DC Alteplase, Recombinant (Cathflo For Central Catheter Clearance) 1 mg 1X ONCE INT CAT Last administered on 08/12/19at 11:44; Start 08/12/19 at 10:45; Stop 08/12/19 at 10:46; Status DC Ondansetron HCl (Zofran) 4 mg PRN Q6HRS PRN IV NAUSEA/VOMITING; Start 08/15/19 at 07:00; Stop 08/16/19 at 06:59; Status DC Fentanyl Citrate (Fentanyl 2ml Vial) 25 mcg PRN Q5MIN PRN IV MILD PAIN 1-3; Start 08/15/19 at 07:00; Stop 08/16/19 at 06:59; Status DC Fentanyl Citrate (Fentanyl 2ml Vial) 50 mcg PRN Q5MIN PRN IV MODERATE TO SEVERE PAIN Last administered on 08/15/19at 10:17; Start 08/15/19 at 07:00; Stop 08/16/19 at 06:59; Status DC Ringer's Solution 1,000 ml @ 30 mls/hr Q24H IV ; Start 08/15/19 at 07:00; Stop 08/15/19 at 18:59; Status DC Lidocaine HCl (Xylocaine-Mpf 1% 2ml Vial) 2 ml PRN 1X PRN ID PRIOR TO IV START; Start 08/15/19 at 07:00; Stop 08/16/19 at 06:59; Status DC Prochlorperazine Edisylate (Compazine) 5 mg PACU PRN PRN IV NAUSEA, MRX1; Start 08/15/19 at 07:00; Stop 08/16/19 at 06:59; Status DC Sodium Acetate 50 meq/Potassium Acetate 55 meq/ Magnesium Sulfate 20 meq/Calcium Gluconate 10 meq/ Multivitamins 10 ml/Chromium/ Copper/Manganese/ Seleni/Zn 0.5 ml/ Insulin Human Regular 35 unit/ Total Parenteral Nutrition/Amino Acids/De xtrose/ Fat Emulsion Intravenous 1,400 ml @ 58.333 mls/ hr TPN CONT IV ; Start 08/12/19 at 22:00; Stop 08/12/19 at 14:15; Status DC Sodium Acetate 50 meq/Potassium Acetate 55 meq/ Magnesium Sulfate 20 meq/Calcium Gluconate 10 meq/ Multivitamins 10 ml/Chromium/ Copper/Manganese/ Seleni/Zn 0.5 ml/ Insulin Human Regular 35 unit/ Total Parenteral Nutrition/Amino Acids/Dextrose/ Fat Emulsion Intravenous 1,800 ml @ 75 mls/hr TPN CONT IV Last administered on 08/12/19at 22:38; Start 08/12/19 at 22:00; Stop 08/13/19 at 21:59; Status DC Sodium Chloride 1,000 ml @ 1,000 mls/hr Q1H PRN IV hypotension; Start 08/12/19 at 15:31; Stop 08/12/19 at 21:30; Status DC Diphenhydramine HCl (Benadryl) 25 mg 1X PRN PRN IV ITCHING; Start 08/12/19 at 15:45; Stop 08/13/19 at 15:44; Status DC Diphenhydramine HCl (Benadryl) 25 mg 1X PRN PRN IV ITCHING; Start 08/12/19 at 15:45; Stop 08/13/19 at 15:44; Status DC Sodium Chloride 1,000 ml @ 400 mls/hr Q2H30M PRN IV PATENCY; Start 08/12/19 at 15:31; Stop 08/13/19 at 03:30; Status DC Info (PHARMACY MONITORING -- do not chart) 1 each PRN DAILY PRN MC SEE COMMENTS; Start 08/12/19 at 15:45; Stop 09/13/19 at 14:14; Status DC Sodium Acetate 50 meq/Potassium Acetate 55 meq/ Magnesium Sulfate 20 meq/Calcium Gluconate 10 meq/ Multivitamins 10 ml/Chromium/ Copper/Manganese/ Seleni/Zn 0.5 ml/ Insulin Human Regular 35 unit/ Total Parenteral Nutrition/Amino Acids/Dex trose/ Fat Emulsion Intravenous 1,800 ml @ 75 mls/hr TPN CONT IV Last administered on 08/13/19at 22:03; Start 08/13/19 at 22:00; Stop 08/14/19 at 21:59; Status DC Daptomycin 430 mg/ Sodium Chloride 50 ml @ 100 mls/hr Q24H IV Last administered on 08/18/19at 13:00; Start 08/13/19 at 13:00; Stop 08/18/19 at 20:58; Status DC Heparin Sodium (Porcine) 1000 unit/Sodium Chloride 1,001 ml @ 1,001 mls/hr 1X ONCE IRR ; Start 08/15/19 at 06:00; Stop 08/15/19 at 06:59; Status DC Potassium Acetate 55 meq/Magnesium Sulfate 20 meq/ Calcium Gluconate 10 meq/ Multivitamins 10 ml/Chromium/ Copper/Manganese/ Seleni/Zn 0.5 ml/ Insulin Human Regular 35 unit/ Total Parenteral Nutrition/Amino Acids/Dextrose/ Fat Emulsion Intravenous 1,920 ml @ 80 mls/hr TPN CONT IV Last administered on 08/14/19at 22:10; Start 08/14/19 at 22:00; Stop 08/15/19 at 21:59; Status DC Dexamethasone Sodium Phosphate (Decadron) 4 mg STK-MED ONCE .ROUTE ; Start 08/15/19 at 10:56; Stop 08/15/19 at 10:57; Status DC Ondansetron HCl (Zofran) 4 mg STK-MED ONCE .ROUTE ; Start 08/15/19 at 10:56; Stop 08/15/19 at 10:57; Status DC Rocuronium [place] (Zemuron) 50 mg STK-MED ONCE .ROUTE ; Start 08/15/19 at 10:56; Stop 08/15/19 at 10:57; Status DC Fentanyl Citrate (Fentanyl 2ml Vial) 100 mcg STK-MED ONCE .ROUTE ; Start 08/15/19 at 10:56; Stop 08/15/19 at 10:57; Status DC Bupivacaine HCl/ Epinephrine Bitart (Sensorcain-Epi 0.5%-1:655252 Mpf) 30 ml STK-MED ONCE .ROUTE Last administered on 08/15/19at 12:01; Start 08/15/19 at 10:58; Stop 08/15/19 at 10:58; Status DC Cellulose (Surgicel Hemostat 2x14) 1 each STK-MED ONCE .ROUTE ; Start 08/15/19 at 10:58; Stop 08/15/19 at 10:59; Status DC Iohexol (Omnipaque 300 Mg/ml) 50 ml STK-MED ONCE .ROUTE ; Start 08/15/19 at 10:58; Stop 08/15/19 at 10:59; Status DC Cellulose (Surgicel Hemostat 4x8) 1 each STK-MED ONCE .ROUTE ; Start 08/15/19 at 10:58; Stop 08/15/19 at 10:59; Status DC Bisacodyl (Dulcolax Supp) 10 mg STK-MED ONCE .ROUTE ; Start 08/15/19 at 10:59; Stop 08/15/19 at 10:59; Status DC Heparin Sodium (Porcine) 1000 unit/Sodium Chloride 1,001 ml @ 1,001 mls/hr 1X ONCE IRR ; Start 08/15/19 at 12:00; Stop 08/15/19 at 12:59; Status DC Propofol 20 ml @ As Directed STK-MED ONCE IV ; Start 08/15/19 at 11:05; Stop 08/15/19 at 11:05; Status DC Sevoflurane (Ultane) 90 ml STK-MED ONCE IH ; Start 08/15/19 at 11:05; Stop 08/15/19 at 11:05; Status DC Sevoflurane (Ultane) 60 ml STK-MED ONCE IH ; Start 08/15/19 at 12:26; Stop 08/15/19 at 12:27; Status DC Propofol 20 ml @ As Directed STK-MED ONCE IV ; Start 08/15/19 at 12:26; Stop 08/15/19 at 12:27; Status DC Phenylephrine HCl (PHENYLEPHRINE in 0.9% NACL PF) 1 mg STK-MED ONCE IV ; Start 08/15/19 at 12:34; Stop 08/15/19 at 12:34; Status DC Heparin Sodium (Porcine) (Heparin Sodium) 5,000 unit Q12HR SQ Last administered on 08/24/19at 20:57; Start 08/15/19 at 21:00; Stop 08/25/19 at 09:59; Status DC Sodium Chloride (Normal Saline Flush) 3 ml QSHIFT PRN IV AFTER MEDS AND BLOOD DRAWS; Start 08/15/19 at 13:45; Status Cancel Naloxone HCl (Narcan) 0.4 mg PRN Q2MIN PRN IV SEE INSTRUCTIONS Last administered on 09/24/19at 15:15; Start 08/15/19 at 13:45; Stop 10/19/19 at 16:00; Status DC Sodium Chloride 1,000 ml @ 25 mls/hr Q24H IV Last administered on 09/13/19at 13:37; Start 08/15/19 at 13:37; Stop 09/16/19 at 13:09; Status DC Naloxone HCl (Narcan) 0.4 mg PRN Q2MIN PRN IV SEE INSTRUCTIONS; Start 08/15/19 at 14:30; Status UNV Sodium Chloride 1,000 ml @ 25 mls/hr Q24H IV ; Start 08/15/19 at 14:30; Status UNV Hydromorphone HCl 30 ml @ 0 mls/hr CONT PRN PRN IV PER PROTOCOL Last administ ered on 08/20/19at 16:08; Start 08/15/19 at 14:30; Stop 08/22/19 at 08:55; Status DC Potassium Acetate 55 meq/Magnesium Sulfate 20 meq/ Calcium Gluconate 10 meq/ Multivitamins 10 ml/Chromium/ Copper/Manganese/ Seleni/Zn 0.5 ml/ Insulin Human Regular 35 unit/ Total Parenteral Nutrition/Amino Acids/Dextrose/ Fat Emulsion Intravenous 1,920 ml @ 80 mls/hr TPN CONT IV Last administered on 08/15/19at 22:01; Start 08/15/19 at 22:00; Stop 08/16/19 at 21:59; Status DC Bumetanide (Bumex) 2 mg [id number] IV Last administered on 08/19/19at 13:50; Start 08/16/19 at 14:00; Stop 08/20/19 at 14:10; Status DC Meropenem 1 gm/ Sodium Chloride 100 ml @ 200 mls/hr Q8HRS IV Last administered on 09/09/19at 05:53; Start 08/16/19 at 14:00; Stop 09/09/19 at 09:31; Status DC Potassium Acetate 55 meq/Magnesium Sulfate 20 meq/ Calcium Gluconate 10 meq/ Multivitamins 10 ml/Chromium/ Copper/Manganese/ Seleni/Zn 0.5 ml/ Insulin Human Regular 35 unit/ Total Parenteral Nutrition/Amino Acids/Dextrose/ Fat Emulsion Intravenous 1,920 ml @ 80 mls/hr TPN CONT IV Last administered on 08/16/19at 22:02; Start 08/16/19 at 22:00; Stop 08/17/19 at 21:59; Status DC Hydromorphone HCl (Dilaudid Standard [employer]) 12 mg STK-MED ONCE IV ; Start 08/15/19 at 14:35; Stop 08/16/19 at 13:53; Status DC Artificial Tears (Artificial Tears) 1 drop PRN Q15MIN PRN OU DRY EYE Last administered on 10/11/19at 21:17; Start 08/17/19 at 05:30 Hydromorphone HCl (Dilaudid Standard [employer]) 12 mg STK-MED ONCE IV ; Start 08/16/19 at 12:05; Stop 08/17/19 at 09:15; Status DC Potassium Acetate 65 meq/Magnesium Sulfate 20 meq/ Calcium Gluconate 10 meq/ Multivitamins 10 ml/Chromium/ Copper/Manganese/ Seleni/Zn 0.5 ml/ Insulin Human Regular 30 unit/ Total Parenteral Nutrition/Amino Acids/Dextrose/ Fat Emulsion Intravenous 1,920 ml @ 80 mls/hr TPN CONT IV Last administered on 08/17/19at 22:22; Start 08/17/19 at 22:00; Stop 08/18/19 at 21:59; Status DC Cyclobenzaprine HCl (Flexeril) 10 mg PRN Q6HRS PRN PO MUSCLE SPASMS Last administered on 11/26/19at 20:50; Start 08/18/19 at 10:45 Potassium Acetate 55 meq/Magnesium Sulfate 20 meq/ Calcium Gluconate 10 meq/ Multivitamins 10 ml/Chromium/ Copper/Manganese/ Seleni/Zn 0.5 ml/ Insulin Human Regular 30 unit/ Total Parenteral Nutrition/Amino Acids/Dextrose/ Fat Emulsion Intravenous 1,920 ml @ 80 mls/hr TPN CONT IV Last administered on 08/19/19at 01:00; Start 08/18/19 at 22:00; Stop 08/19/19 at 21:59; Status DC Magnesium Sulfate 50 ml @ 25 mls/hr 1X ONCE IV Last administered on 08/18/19at 17:18; Start 08/18/19 at 12:45; Stop 08/18/19 at 14:44; Status DC Potassium Chloride/Water 100 ml @ 100 mls/hr 1X ONCE IV Last administered on 08/19/19at 11:27; Start 08/19/19 at 12:00; Stop 08/19/19 at 12:59; Status DC Hydromorphone HCl (Dilaudid Standard [employer]) 12 mg STK-MED ONCE IV ; Start 08/17/19 at 10:50; Stop 08/19/19 at 11:02; Status DC Hydromorphone HCl (Dilaudid Standard [employer]) 12 mg STK-MED ONCE IV ; Start 08/18/19 at 13:47; Stop 08/19/19 at 11:03; Status DC Potassium Acetate 30 meq/Magnesium Sulfate 20 meq/ Calcium Gluconate 10 meq/ Multivitamins 10 ml/Chromium/ Copper/Manganese/ Seleni/Zn 0.5 ml/ Insulin Human Regular 30 unit/ Potassium Chloride 30 meq/ Total Parenteral Nutrition/Amino A cids/Dextrose/ Fat Emulsion Intravenous 1,920 ml @ 80 mls/hr TPN CONT IV Last administered on 08/19/19at 22:34; Start 08/19/19 at 22:00; Stop 08/20/19 at 21:59; Status DC Potassium Chloride/Water 100 ml @ 100 mls/hr Q1H IV Last administered on 08/20/19at 13:05; Start 08/20/19 at 07:00; Stop 08/20/19 at 10:59; Status DC Magnesium Sulfate 50 ml @ 25 mls/hr 1X ONCE IV Last administered on 08/20/19at 10:34; Start 08/20/19 at 10:30; Stop 08/20/19 at 12:29; Status DC Potassium Chloride 75 meq/ Magnesium Sulfate 20 meq/Calcium Gluconate 10 meq/ Multivitamins 10 ml/Chromium/ Copper/Manganese/ Seleni/Zn 0.5 ml/ Insulin Human Regular 30 unit/ Total Parenteral Nutrition/Amino Acids/Dextrose/ Fat Emulsion Intravenous 1,920 ml @ 80 mls/hr TPN CONT IV Last administered on 08/20/19at 21:51; Start 08/20/19 at 22:00; Stop 08/21/19 at 22:00; Status DC Potassium Chloride 75 meq/ Magnesium Sulfate 20 meq/Calcium Gluconate 10 meq/ Multivitamins 10 ml/Chromium/ Copper/Manganese/ Seleni/Zn 0.5 ml/ Insulin Human Regular 25 unit/ Total Parenteral Nutrition/Amino Acids/Dextrose/ Fat Emulsion Intravenous 1,920 ml @ 80 mls/hr TPN CONT IV Last administered on 08/21/19at 22:04; Start 08/21/19 at 22:00; Stop 08/22/19 at 21:59; Status DC Hydromorphone HCl (Dilaudid) 0.4 mg PRN Q4HRS PRN IVP PAIN Last administered on 08/22/19at 10:57; Start 08/22/19 at 09:00; Stop 08/22/19 at 18:59; Status DC Micafungin Sodium 100 mg/Dextrose 100 ml @ 100 mls/hr Q24H IV Last administered on 09/13/19at 12:17; Start 08/22/19 at 11:00; Stop 09/14/19 at 09:59; Status DC Daptomycin 485 mg/ Sodium Chloride 50 ml @ 100 mls/hr Q24H IV Last administered on 08/29/19at 13:10; Start 08/22/19 at 11:00; Stop 08/30/19 at 07:44; Status DC Potassium Chloride 75 meq/ Magnesium Sulfate 15 meq/Calcium Gluconate 8 meq/ Multivitamins 10 ml/Chromium/ Copper/Manganese/ Seleni/Zn 0.5 ml/ Insulin Human Regular 25 unit/ Total Parenteral Nutrition/Amino Acids/Dextrose/ Fat Emulsion Intravenous 1,920 ml @ 80 mls/hr TPN CONT IV Last administered on 08/22/19at 23:08; Start 08/22/19 at 22:00; Stop 08/23/19 at 21:59; Status DC Haloperidol Lactate (Haldol Inj) 3 mg 1X ONCE IVP Last administered on 08/22/19at 14:37; Start 08/22/19 at 14:30; Stop 08/22/19 at 14:31; Status DC Hydromorphone HCl (Dilaudid) 1 mg PRN Q4HRS PRN IVP PAIN Last administered on 09/05/19at 06:25; Start 08/22/19 at 19:00; Stop 09/05/19 at 17:10; Status DC Potassium Chloride 75 meq/ Magnesium Sulfate 15 meq/Calcium Gluconate 8 meq/ Multivitamins 10 ml/Chromium/ Copper/Manganese/ Seleni/Zn 0.5 ml/ Insulin Human Regular 20 unit/ Total Parenteral Nutrition/Amino Acids/Dextrose/ Fat Emulsion Intravenous 1,920 ml @ 80 mls/hr TPN CONT IV Last administered on 08/23/19at 22:10; Start 08/23/19 at 22:00; Stop 08/24/19 at 21:59; Status DC Lidocaine HCl (Buffered Lidocaine 1%) 3 ml STK-MED ONCE .ROUTE ; Start 08/24/19 at 11:31; Stop 08/24/19 at 11:31; Status DC Lidocaine HCl (Buffered Lidocaine 1%) 3 ml STK-MED ONCE .ROUTE ; Start 08/24/19 at 12:28; Stop 08/24/19 at 12:29; Status DC Lidocaine HCl (Buffered Lidocaine 1%) 6 ml 1X ONCE INJ Last administered on 08/24/19at 12:53; Start 08/24/19 at 12:45; Stop 08/24/19 at 12:46; Status DC Potassium Chloride 75 meq/ Magnesium Sulfate 15 meq/Calcium Gluconate 8 meq/ Multivitamins 10 ml/Chromium/ Copper/Manganese/ Seleni/Zn 0.5 ml/ Insulin Human Regular 20 unit/ Total Parenteral Nutrition/Amino Acids/Dextrose/ Fat Emulsion Intravenous 1,920 ml @ 80 mls/hr TPN CONT IV Last administered on 08/24/19at 22:00; Start 08/24/19 at 22:00; Stop 08/25/19 at 21:59; Status DC Potassium Chloride 75 meq/ Magnesium Sulfate 15 meq/Calcium Gluconate 8 meq/ Multivitamins 10 ml/Chromium/ Copper/Manganese/ Seleni/Zn 0.5 ml/ Insulin Human Regular 15 unit/ Total Parenteral Nutrition/Amino Acids/Dextrose/ Fat Emulsion Intravenous 1,920 ml @ 80 mls/hr TPN CONT IV Last administered on 08/25/19at 22:28; Start 08/25/19 at 22:00; Stop 08/26/19 at 21:59; Status DC Vecuronium [place] (Norcuron Bolus) 6 mg PRN Q6HRS PRN IV VENT ASYNCHRONY; Start 08/25/19 at 19:15; Stop 08/25/19 at 19:35; Status DC Bumetanide (Bumex) 2 mg 1X ONCE IV Last administered on 08/25/19at 22:09; Start 08/25/19 at 19:45; Stop 08/25/19 at 19:46; Status DC Lidocaine HCl (Buffered Lidocaine 1%) 3 ml STK-MED ONCE .ROUTE ; Start 08/26/19 at 07:59; Stop 08/26/19 at 07:59; Status DC Midazolam HCl (Versed) 5 mg STK-MED ONCE .ROUTE ; Start 08/26/19 at 08:36; Stop 08/26/19 at 08:36; Status DC Fentanyl Citrate (Fentanyl 5ml Vial) 250 mcg STK-MED ONCE .ROUTE ; Start 08/26/19 at 08:36; Stop 08/26/19 at 08:37; Status DC Lidocaine HCl (Buffered Lidocaine 1%) 3 ml 1X ONCE IJ Last administered on 08/26/19at 09:30; Start 08/26/19 at 09:15; Stop 08/26/19 at 09:16; Status DC Midazolam HCl (Versed) 5 mg 1X ONCE IV Last administered on 08/26/19at 09:30; Start 08/26/19 at 09:15; Stop 08/26/19 at 09:16; Status DC Fentanyl Citrate (Fentanyl 5ml Vial) 250 mcg 1X ONCE IV Last administered on 08/26/19at 09:30; Start 08/26/19 at 09:15; Stop 08/26/19 at 09:16; Status DC Bumetanide (Bumex) 2 mg DAILY IV Last administered on 09/05/19at 08:07; Start 08/26/19 at 10:00; Stop 09/05/19 at 17:15; Status DC Potassium Chloride 75 meq/ Magnesium Sulfate 15 meq/ Multivitamins 10 ml/Chromium/ Copper/Manganese/ Seleni/Zn 0.5 ml/ Insulin Human Regular 15 unit/ Total Parenteral Nutrition/Amino Acids/Dextrose/ Fat Emulsion Intravenous 1,920 ml @ 80 mls/hr TPN CONT IV Last administered on 08/26/19at 21:59; Start 08/26/19 at 22:00; Stop 08/27/19 at 21:59; Status DC Metoclopramide HCl (Reglan Vial) 10 mg PRN Q3HRS PRN IVP NAUSEA/VOMITING-3rd choice Last administered on 09/01/19at 04:25; Start 08/27/19 at 16:45 Potassium Chloride 75 meq/ Magnesium Sulfate 15 meq/ Multivitamins 10 ml/Chromium/ Copper/Manganese/ Seleni/Zn 0.5 ml/ Insulin Human Regular 15 unit/ Total Parenteral Nutrition/Amino Acids/Dextrose/ Fat Emulsion Intravenous 1,920 ml @ 80 mls/hr TPN CONT IV Last administered on 08/27/19at 22:41; Start 08/27/19 at 22:00; Stop 08/28/19 at 21:59; Status DC Magnesium Sulfate 50 ml @ 25 mls/hr 1X ONCE IV Last administered on 08/28/19at 10:44; Start 08/28/19 at 09:00; Stop 08/28/19 at 10:59; Status DC Potassium Chloride/Water 100 ml @ 100 mls/hr 1X ONCE IV Last administered on 08/28/19at 09:37; Start 08/28/19 at 09:00; Stop 08/28/19 at 09:59; Status DC Duloxetine HCl (Cymbalta) 30 mg DAILY PO Last administered on 08/29/19at 09:48; Start 08/28/19 at 14:00; Stop 08/31/19 at 10:25; Status DC Potassium Chloride 80 meq/ Magnesium Sulfate 20 meq/ Multivitamins 10 ml/Chromium/ Copper/Manganese/ Seleni/Zn 0.5 ml/ Insulin Human Regular 15 unit/ Total Parenteral Nutrition/Amino Acids/Dextrose/ Fat Emulsion Intravenous 1,920 ml @ 80 mls/hr TPN CONT IV Last administered on 08/28/19at 21:42; Start 08/28/19 at 22:00; Stop 08/29/19 at 21:59; Status DC Potassium Chloride 80 meq/ Magnesium Sulfate 20 meq/ Multivitamins 10 ml/Chromium/ Copper/Manganese/ Seleni/Zn 0.5 ml/ Insulin Human Regular 15 unit/ Total Parenteral Nutrition/Amino Acids/Dextrose/ Fat Emulsion Intravenous 1,920 ml @ 80 mls/hr TPN CONT IV Last administered on 08/29/19at 22:20; Start 08/29/19 at 22:00; Stop 08/30/19 at 21:59; Status DC Lidocaine HCl (Buffered Lidocaine 1%) 3 ml STK-MED ONCE .ROUTE ; Start 08/30/19 at 09:54; Stop 08/30/19 at 09:55; Status DC Hydromorphone HCl (Dilaudid Standard [employer]) 12 mg STK-MED ONCE IV ; Start 08/19/19 at 15:50; Stop 08/30/19 at 11:24; Status DC Potassium Chloride 80 meq/ Magnesium Sulfate 20 meq/ Multivitamins 10 ml/Chromium/ Copper/Manganese/ Seleni/Zn 0.5 ml/ Insulin Human Regular 15 unit/ Total Parenteral Nutrition/Amino Acids/Dextrose/ Fat Emulsion Intravenous 1,920 ml @ 80 mls/hr TPN CONT IV Last administered on 08/30/19at 21:40; Start 08/30/19 at 22:00; Stop 08/31/19 at 21:59; Status DC Lidocaine HCl (Buffered Lidocaine 1%) 6 ml 1X ONCE INJ Last administered on 08/30/19at 14:15; Start 08/30/19 at 14:15; Stop 08/30/19 at 14:16; Status DC Potassium Chloride 80 meq/ Magnesium Sulfate 20 meq/ Multivitamins 10 ml/Chromium/ Copper/Manganese/ Seleni/Zn 1 ml/ Insulin Human Regular 15 unit/ Total Parenteral Nutrition/Amino Acids/Dextrose/ Fat Emulsion Intravenous 1,920 ml @ 80 mls/hr TPN CONT IV Last administered on 08/31/19at 22:04; Start 08/31/19 at 22:00; Stop 09/01/19 at 21:59; Status DC Potassium Chloride/Water 100 ml @ 100 mls/hr 1X ONCE IV Last administered on 09/01/19at 11:34; Start 09/01/19 at 11:00; Stop 09/01/19 at 11:59; Status DC Potassium Chloride 90 meq/ Magnesium Sulfate 20 meq/ Multivitamins 10 ml/Chromium/ Copper/Manganese/ Seleni/Zn 1 ml/ Insulin Human Regular 15 unit/ Total Parenteral Nutrition/Amino Acids/Dextrose/ Fat Emulsion Intravenous 1,920 ml @ 80 mls/hr TPN CONT IV Last administered on 09/01/19at 22:57; Start 09/01/19 at 22:00; Stop 09/02/19 at 21:59; Status DC Potassium Chloride 90 meq/ Magnesium Sulfate 20 meq/ Multivitamins 10 ml/ Chromium/ Copper/Manganese/ Seleni/Zn 1 ml/ Insulin Human Regular 15 unit/ Total Parenteral Nutrition/Amino Acids/Dextrose/ Fat Emulsion Intravenous 1,920 ml @ 80 mls/hr TPN CONT IV Last administered on 09/02/19at 22:48; Start 09/02/19 at 22:00; Stop 09/03/19 at 21:59; Status DC Potassium Chloride 90 meq/ Magnesium Sulfate 20 meq/ Multivitamins 10 ml/Chromium/ Copper/Manganese/ Seleni/Zn 1 ml/ Insulin Human Regular 15 unit/ Total Parenteral Nutrition/Amino Acids/Dextrose/ Fat Emulsion Intravenous 1,890 ml @ 78.75 mls/ hr TPN CONT IV Last administered on 09/03/19at 22:15; Start 09/03/19 at 22:00; Stop 09/04/19 at 21:59; Status DC Linezolid/Dextrose 300 ml @ 300 mls/hr Q12HR IV Last administered on 09/06/19at 21:08; Start 09/04/19 at 09:00; Stop 09/07/19 at 08:11; Status DC Daptomycin 450 mg/ Sodium Chloride 50 ml @ 100 mls/hr Q24H IV Last administered on 09/07/19at 09:25; Start 09/04/19 at 09:00; Stop 09/08/19 at 08:30; Status DC Potassium Chloride 90 meq/ Magnesium Sulfate 20 meq/ Multivitamins 10 m l/Chromium/ Copper/Manganese/ Seleni/Zn 1 ml/ Insulin Human Regular 15 unit/ Total Parenteral Nutrition/Amino Acids/Dextrose/ Fat Emulsion Intravenous 1,890 ml @ 78.75 mls/ hr TPN CONT IV Last administered on 09/04/19at 21:34; Start 09/04/19 at 22:00; Stop 09/05/19 at 21:59; Status DC Lorazepam (Ativan Inj) 2 mg STK-MED ONCE .ROUTE ; Start 09/04/19 at 14:58; Stop 09/04/19 at 14:58; Status DC Metoprolol Tartrate (Lopressor Vial) 5 mg 1X ONCE IVP Last administered on 09/04/19at 15:31; Start 09/04/19 at 15:15; Stop 09/04/19 at 15:16; Status DC Lorazepam (Ativan Inj) 2 mg 1X ONCE IVP Last administered on 09/04/19at 15:30; Start 09/04/19 at 15:15; Stop 09/04/19 at 15:16; Status DC Enoxaparin Sodium (Lovenox 40mg Syringe) 40 mg Q24H SQ Last administered on 09/23/19at 17:44; Start 09/04/19 at 17:00; Stop 09/25/19 at 06:50; Status DC Lorazepam (Ativan Inj) 1 mg PRN Q4HRS PRN IVP ANXIETY / AGITATION MILD-MOD Last administered on 09/18/19at 15:55; Start 09/04/19 at 19:15; Stop 09/20/19 at 11:45; Status DC Lorazepam (Ativan Inj) 2 mg PRN Q4HRS PRN IVP ANXIETY / AGITATION SEVERE Last administered on 09/19/19at 07:55; Start 09/04/19 at 19:15; Stop 09/20/19 at 11:45; Status DC Fentanyl Citrate (Fentanyl 2ml Vial) 50 mcg PRN Q4HRS PRN IVP SEVERE PAIN Last administered on 10/01/19at 05:15; Start 09/05/19 at 13:15; Stop 10/02/19 at 09:29; Status DC Fentanyl Citrate (Fentanyl 2ml Vial) 25 mcg PRN Q4HRS PRN IVP MODERATE PAIN Last administered on 10/01/19at 00:27; Start 09/05/19 at 13:15; Stop 10/02/19 at 09:30; Status DC Potassium Chloride 90 meq/ Magnesium Sulfate 20 meq/ Multivitamins 10 ml/Chromium/ Copper/Manganese/ Seleni/Zn 1 ml/ Insulin Human Regular 15 unit/ Total Parenteral Nutrition/Amino Acids/Dextrose/ Fat Emulsion Intravenous 1,890 ml @ 78.75 mls/ hr TPN CONT IV Last administered on 09/05/19at 22:18; Start 09/05/19 at 22:00; Stop 09/06/19 at 21:59; Status DC Furosemide (Lasix) 40 mg 1X ONCE IVP Last administered on 09/05/19at 21:51; Start 09/05/19 at 21:45; Stop 09/05/19 at 21:48; Status DC Albumin Human 100 ml @ 100 mls/hr 1X PRN PRN IV SEE COMMENTS; Start 09/06/19 at 01:30; Stop 11/21/19 at 09:52; Status DC Furosemide (Lasix) 40 mg [id number] IVP Last administered on 09/21/19at 08:04; Start 09/06/19 at 14:00; Stop 09/21/19 at 13:07; Status DC Potassium Chloride 90 meq/ Magnesium Sulfate 20 meq/ Multivitamins 10 ml/Chromium/ Copper/Manganese/ Seleni/Zn 1 ml/ Insulin Human Regular 15 unit/ Total Parenteral Nutrition/Amino Acids/Dextrose/ Fat Emulsion Intravenous 1,800 ml @ 75 mls/hr TPN CONT IV Last administered on 09/06/19at 22:31; Start 09/06/19 at 22:00; Stop 09/07/19 at 21:59; Status DC Potassium Chloride 90 meq/ Magnesium Sulfate 20 meq/ Multivitamins 10 ml/Chromium/ Copper/Manganese/ Seleni/Zn 1 ml/ Insulin Human Regular 15 unit/ Total Parenteral Nutrition/Amino Acids/Dextrose/ Fat Emulsion Intravenous 1,800 ml @ 75 mls/hr TPN CONT IV Last administered on 09/07/19at 22:28; Start 09/07/19 at 22:00; Stop 09/08/19 at 21:59; Status DC Potassium Chloride 110 meq/ Magnesium Sulfate 20 meq/ Multivitamins 10 m l/Chromium/ Copper/Manganese/ Seleni/Zn 1 ml/ Insulin Human Regular 15 unit/ Total Parenteral Nutrition/Amino Acids/Dextrose/ Fat Emulsion Intravenous 1,800 ml @ 75 mls/hr TPN CONT IV Last administered on 09/08/19at 22:01; Start 09/08/19 at 22:00; Stop 09/09/19 at 21:59; Status DC Saliva Substitute (Biotene Moisturizing Mouth) 2 spray PRN Q15MIN PRN PO DRY MOUTH; Start 09/08/19 at 11:00 Potassium Chloride 110 meq/ Magnesium Sulfate 20 meq/ Multivitamins 10 ml/Chromium/ Copper/Manganese/ Seleni/Zn 1 ml/ Insulin Human Regular 15 unit/ Total Parenteral Nutrition/Amino Acids/Dextrose/ Fat Emulsion Intravenous 1,800 ml @ 75 mls/hr TPN CONT IV Last administered on 09/09/19at 22:21; Start 09/09/19 at 22:00; Stop 09/10/19 at 21:59; Status DC Potassium Chloride 110 meq/ Magnesium Sulfate 20 meq/ Multivitamins 10 ml/Chromium/ Copper/Manganese/ Seleni/Zn 1 ml/ Insulin Human Regular 15 unit/ Total Parenteral Nutrition/Amino Acids/Dextrose/ Fat Emulsion Intravenous 1,800 ml @ 75 mls/hr TPN CONT IV Last administered on 09/10/19at 22:04; Start 09/10/19 at 22:00; Stop 09/11/19 at 21:59; Status DC Potassium Chloride 110 meq/ Magnesium Sulfate 20 meq/ Multivitamins 10 ml/Chromium/ Copper/Manganese/ Seleni/Zn 1 ml/ Insulin Human Regular 15 unit/ Total Parenteral Nutrition/Amino Acids/Dextrose/ Fat Emulsion Intravenous 1,800 ml @ 75 mls/hr TPN CONT IV Last administered on 09/11/19at 22:48; Start 09/11/19 at 22:00; Stop 09/12/19 at 21:59; Status DC Potassium Chloride 70 meq/ Magnesium Sulfate 20 meq/ Multivitamins 10 m l/Chromium/ Copper/Manganese/ Seleni/Zn 1 ml/ Insulin Human Regular 15 unit/ Total Parenteral Nutrition/Amino Acids/Dextrose/ Fat Emulsion Intravenous 1,800 ml @ 75 mls/hr TPN CONT IV Last administered on 09/12/19at 21:39; Start 09/12/19 at 22:00; Stop 09/13/19 at 21:59; Status DC Meropenem 500 mg/ Sodium Chloride 50 ml @ 100 mls/hr Q6HRS IV Last administered on 09/14/19at 06:02; Start 09/12/19 at 18:00; Stop 09/14/19 at 09:59; Status DC Barium Sulfate (Varibar Thin Liquid Apple) 148 gm 1X ONCE PO ; Start 09/13/19 at 11:45; Stop 09/13/19 at 11:49; Status DC Potassium Chloride 70 meq/ Magnesium Sulfate 20 meq/ Multivitamins 10 ml/Chromium/ Copper/Manganese/ Seleni/Zn 1 ml/ Insulin Human Regular 15 unit/ Total Parenteral Nutrition/Amino Acids/Dextrose/ Fat Emulsion Intravenous 1,800 ml @ 75 mls/hr TPN CONT IV Last administered on 09/13/19at 22:27; Start 09/13/19 at 22:00; Stop 09/14/19 at 21:59; Status DC Piperacillin Sod/ Tazobactam Sod 3.375 gm/Sodium Chloride 50 ml @ 100 mls/hr Q6HRS IV Last administered on 09/22/19at 06:10; Start 09/14/19 at 12:00; Stop 09/22/19 at 07:26; Status DC Potassium Chloride 70 meq/ Magnesium Sulfate 20 meq/ Multivitamins 10 ml/Chromium/ Copper/Manganese/ Seleni/Zn 1 ml/ Insulin Human Regular 15 unit/ Total Parenteral Nutrition/Amino Acids/Dextrose/ Fat Emulsion Intravenous 1,800 ml @ 75 mls/hr TPN CONT IV Last administered on 09/14/19at 22:03; Start 09/14/19 at 22:00; Stop 09/15/19 at 21:59; Status DC Potassium Chloride 70 meq/ Magnesium Sulfate 20 meq/ Multivitamins 10 ml/Chromium/ Copper/Manganese/ Seleni/Zn 1 ml/ Insulin Human Regular 15 unit/ Total Parenteral Nutrition/Amino Acids/Dextrose/ Fat Emulsion Intravenous 1,800 ml @ 75 mls/hr TPN CONT IV Last administered on 09/15/19at 22:33; Start 09/15/19 at 22:00; Stop 09/16/19 at 21:59; Status DC Potassium Chloride 70 meq/ Magnesium Sulfate 20 meq/ Multivitamins 10 ml/Chromium/ Copper/Manganese/ Seleni/Zn 1 ml/ Insulin Human Regular 15 unit/ Total Parenteral Nutrition/Amino Acids/Dextrose/ Fat Emulsion Intravenous 1,800 ml @ 75 mls/hr TPN CONT IV Last administered on 09/16/19at 23:13; Start 09/16/19 at 22:00; Stop 09/17/19 at 21:59; Status DC Potassium Chloride 80 meq/ Magnesium Sulfate 20 meq/ Multivitamins 10 ml/Chromium/ Copper/Manganese/ Seleni/Zn 1 ml/ Insulin Human Regular 15 unit/ Total Parenteral Nutrition/Amino Acids/Dextrose/ Fat Emulsion Intravenous 1,800 ml @ 75 mls/hr TPN CONT IV Last administered on 09/17/19at 22:30; Start 09/17/19 at 22:00; Stop 09/18/19 at 21:59; Status DC Potassium Chloride 80 meq/ Magnesium Sulfate 20 meq/ Multivitamins 10 ml/Chromium/ Copper/Manganese/ Seleni/Zn 1 ml/ Insulin Human Regular 15 unit/ Total Parenteral Nutrition/Amino Acids/Dextrose/ Fat Emulsion Intravenous 1,800 ml @ 75 mls/hr TPN CONT IV Last administered on 09/18/19at 21:54; Start 09/18/19 at 22:00; Stop 09/19/19 at 21:59; Status DC Potassium Chloride/Water 100 ml @ 100 mls/hr 1X ONCE IV Last administered on 09/19/19at 10:15; Start 09/19/19 at 10:00; Stop 09/19/19 at 10:59; Status DC Potassium Chloride 90 meq/ Magnesium Sulfate 20 meq/ Multivitamins 10 ml/Chromium/ Copper/Manganese/ Seleni/Zn 1 ml/ Insulin Human Regular 20 unit/ Total Parenteral Nutrition/Amino Acids/Dextrose/ Fat Emulsion Intravenous 1,800 ml @ 75 mls/hr TPN CONT IV Last administered on 09/19/19at 22:28; Start 09/19/19 at 22:00; Stop 09/20/19 at 21:59; Status DC Potassium Chloride 90 meq/ Magnesium Sulfate 20 meq/ Multivitamins 10 ml/Chromium/ Copper/Manganese/ Seleni/Zn 1 ml/ Insulin Human Regular 20 unit/ Total Parenteral Nutrition/Amino Acids/Dextrose/ Fat Emulsion Intravenous 1,800 ml @ 75 mls/hr TPN CONT IV Last administered on 09/20/19at 22:08; Start 09/20/19 at 22:00; Stop 09/21/19 at 21:59; Status DC Lorazepam (Ativan Inj) 0.25 mg PRN Q4HRS PRN IVP ANXIETY / AGITATION Last administered on 11/29/19at 09:54; Start 09/21/19 at 07:30 Potassium Chloride 90 meq/ Magnesium Sulfate 20 meq/ Multivitamins 10 ml/Chromium/ Copper/Manganese/ Seleni/Zn 1 ml/ Insulin Human Regular 20 unit/ Total Parenteral Nutrition/Amino Acids/Dextrose/ Fat Emulsion Intravenous 1,800 ml @ 75 mls/hr TPN CONT IV Last administered on 09/21/19at 23:13; Start 09/21/19 at 22:00; Stop 09/22/19 at 21:59; Status DC Furosemide (Lasix) 40 mg DAILY IVP Last administered on 09/23/19at 11:14; Start 09/21/19 at 13:30; Stop 09/25/19 at 09:12; Status DC Fluoxetine HCl (PROzac) 20 mg QHS PEG Last administered on 11/28/19at 20:26; Start 09/22/19 at 21:00 Fentanyl (Duragesic 50mcg/ Hr Patch) 1 patch Q72H TD Last administered on 09/22/19at 21:22; Start 09/22/19 at 21:00; Stop 10/01/19 at 12:00; Status DC Potassium Chloride 40 meq/ Potassium Acetate 60 meq/Magnesium Sulfate 10 meq/ Multivitamins 10 ml/Chromium/ Copper/Manganese/ Seleni/Zn 1 ml/ Insulin Human Regular 20 unit/ Total Parenteral Nutrition/Amino Acids/Dextrose/ Fat Emulsion Intravenous 1,800 ml @ 75 mls/hr TPN CONT IV Last administered on 09/23/19at 00:03; Start 09/22/19 at 22:00; Stop 09/23/19 at 21:59; Status DC Potassium Acetate 80 meq/Magnesium Sulfate 5 meq/ Multivitamins 10 ml/Chromium/ Copper/Manganese/ Seleni/Zn 1 ml/ Insulin Human Regular 20 unit/ Total Parenteral Nutrition/Amino Acids/Dextrose/ Fat Emulsion Intravenous 1,920 ml @ 80 mls/hr TPN CONT IV Last administered on 09/23/19at 21:59; Start 09/23/19 at 22:00; Stop 09/24/19 at 21:59; Status DC Potassium Acetate 60 meq/Magnesium Sulfate 5 meq/ Multivitamins 10 ml/Chromium/ Copper/Manganese/ Seleni/Zn 1 ml/ Insulin Human Regular 30 unit/ Total Parenteral Nutrition/Amino Acids/Dextrose/ Fat Emulsion Intravenous 1,920 ml @ 80 mls/hr TPN CONT IV Last administered on 09/24/19at 21:54; Start 09/24/19 at 22:00; Stop 09/25/19 at 21:59; Status DC Norepinephrine Bitartrate 8 mg/ Dextrose 258 ml @ 13.332 mls/ hr CONT PRN IV PER PROTOCOL Last administered on 10/20/19at 09:09; Start 09/25/19 at 06:30; Stop 11/21/19 at 09:45; Status DC Albumin Human 500 ml @ 125 mls/hr 1X ONCE IV Last administered on 09/25/19at 08:10; Start 09/25/19 at 08:15; Stop 09/25/19 at 12:14; Status DC Potassium Acetate 40 meq/Magnesium Sulfate 5 meq/ Multivitamins 10 ml/Chromium/ Copper/Manganese/ Seleni/Zn 1 ml/ Insulin Human Regular 30 unit/ Total Parenteral Nutrition/Amino Acids/Dextrose/ Fat Emulsion Intravenous 1,920 ml @ 80 mls/hr TPN CONT IV Last administered on 09/25/19at 22:23; Start 09/25/19 at 22:00; Stop 09/26/19 at 21:59; Status DC Meropenem 1 gm/ Sodium Chloride 100 ml @ 200 mls/hr Q8HRS IV ; Start 09/25/19 at 14:00; Status Cancel Meropenem 1 gm/ Sodium Chloride 100 ml @ 200 mls/hr Q8HRS IV Last administered on 09/25/19at 11:04; Start 09/25/19 at 10:00; Stop 09/25/19 at 13:00; Status DC Meropenem 1 gm/ Sodium Chloride 100 ml @ 200 mls/hr Q12HR IV Last administered on 10/13/19at 08:27; Start 09/25/19 at 21:00; Stop 10/13/19 at 08:56; Status DC Sodium Chloride 1,000 ml @ 1,000 mls/hr 1X ONCE IV Last administered on 09/25/19at 11:06; Start 09/25/19 at 10:45; Stop 09/25/19 at 11:44; Status DC Micafungin Sodium 100 mg/Dextrose 100 ml @ 100 mls/hr Q24H IV Last administered on 10/12/19at 12:34; Start 09/25/19 at 11:00; Stop 10/13/19 at 08:56; Status DC Daptomycin 410 mg/ Sodium Chloride 50 ml @ 100 mls/hr Q24H IV Last administered on 09/27/19at 13:33; Start 09/25/19 at 14:00; Stop 09/28/19 at 08:30; Status DC Midazolam HCl (Versed) 2 mg STK-MED ONCE .ROUTE ; Start 09/25/19 at 14:47; Stop 09/25/19 at 14:48; Status DC Fentanyl Citrate (Fentanyl 2ml Vial) 100 mcg STK-MED ONCE .ROUTE ; Start 09/25/19 at 14:47; Stop 09/25/19 at 14:48; Status DC Flumazenil (Romazicon) 0.5 mg STK-MED ONCE IV ; Start 09/25/19 at 14:48; Stop 09/25/19 at 14:48; Status DC Naloxone HCl (Narcan) 0.4 mg STK-MED ONCE .ROUTE ; Start 09/25/19 at 14:48; Stop 09/25/19 at 14:48; Status DC Lidocaine HCl (Lidocaine 1% 20ml Vial) 20 ml STK-MED ONCE .ROUTE ; Start 09/25/19 at 14:48; Stop 09/25/19 at 14:48; Status DC Midazolam HCl (Versed) 2 mg 1X ONCE IV Last administered on 09/25/19at 15:28; Start 09/25/19 at 15:00; Stop 09/25/19 at 15:01; Status DC Fentanyl Citrate (Fentanyl 2ml Vial) 100 mcg 1X ONCE IV Last administered on 09/25/19at 15:28; Start 09/25/19 at 15:00; Stop 09/25/19 at 15:01; Status DC Lidocaine HCl (Lidocaine 1% 20ml Vial) 20 ml 1X ONCE INJ Last administered on 09/25/19at 15:30; Start 09/25/19 at 15:00; Stop 09/25/19 at 15:01; Status DC Sodium Chloride 1,000 ml @ 100 mls/hr Q10H IV Last administered on 10/04/19at 07:30; Start 09/25/19 at 20:00; Stop 10/04/19 at 11:26; Status DC Sodium Bicarbonate (Sodium Bicarb Adult 8.4% Syr) 50 meq 1X ONCE IV Last administered on 09/25/19at 21:47; Start 09/25/19 at 22:00; Stop 09/25/19 at 22:01; Status DC Potassium Acetate 40 meq/Magnesium Sulfate 5 meq/ Multivitamins 10 ml/Chromium/ Copper/Manganese/ Seleni/Zn 1 ml/ Insulin Human Regular 30 unit/ Total Parenteral Nutrition/Amino Acids/Dextrose/ Fat Emulsion Intravenous 1,920 ml @ 80 mls/hr TPN CONT IV Last administered on 09/26/19at 22:28; Start 09/26/19 at 22:00; Stop 09/27/19 at 21:59; Status DC Sodium Chloride 500 ml @ 500 mls/hr 1X ONCE IV Last administered on 09/27/19at 06:39; Start 09/27/19 at 06:45; Stop 09/27/19 at 07:44; Status DC Potassium Acetate 40 meq/Magnesium Sulfate 5 meq/ Multivitamins 10 ml/Chromium/ Copper/Manganese/ Seleni/Zn 1 ml/ Insulin Human Regular 30 unit/ Total Parenteral Nutrition/Amino Acids/Dextrose/ Fat Emulsion Intravenous 1,920 ml @ 80 mls/hr TPN CONT IV Last administered on 09/27/19at 22:03; Start 09/27/19 at 22:00; Stop 09/28/19 at 21:59; Status DC Metoprolol Tartrate (Lopressor Vial) 5 mg PRN Q6HRS PRN IVP HYPERTENSION Last administered on 11/29/19at 10:02; Start 09/28/19 at 09:00 Potassium Acetate 40 meq/Magnesium Sulfate 5 meq/ Multivitamins 10 ml/Chromium/ Copper/Manganese/ Seleni/Zn 1 ml/ Insulin Human Regular 30 unit/ Total Paren teral Nutrition/Amino Acids/Dextrose/ Fat Emulsion Intravenous 1,920 ml @ 80 mls/hr TPN CONT IV Last administered on 09/28/19at 21:26; Start 09/28/19 at 22:00; Stop 09/29/19 at 21:59; Status DC Potassium Acetate 40 meq/Magnesium Sulfate 5 meq/ Multivitamins 10 ml/Chromium/ Copper/Manganese/ Seleni/Zn 1 ml/ Insulin Human Regular 30 unit/ Total Parenteral Nutrition/Amino Acids/Dextrose/ Fat Emulsion Intravenous 1,920 ml @ 80 mls/hr TPN CONT IV Last administered on 09/29/19at 23:23; Start 09/29/19 at 22:00; Stop 09/30/19 at 21:59; Status DC Potassium Acetate 40 meq/Magnesium Sulfate 5 meq/ Multivitamins 10 ml/Chromium/ Copper/Manganese/ Seleni/Zn 1 ml/ Insulin Human Regular 30 unit/ Total Parenteral Nutrition/Amino Acids/Dextrose/ Fat Emulsion Intravenous 1,920 ml @ 80 mls/hr TPN CONT IV Last administered on 09/30/19at 21:35; Start 09/30/19 at 22:00; Stop 10/01/19 at 21:59; Status DC Furosemide (Lasix) 20 mg 1X ONCE IVP Last administered on 10/01/19at 06:26; Start 10/01/19 at 06:15; Stop 10/01/19 at 06:16; Status DC Methylprednisolone Sodium Succinate (SOLU-Medrol 125MG VIAL) 125 mg 1X ONCE IV Last administered on 10/01/19at 06:26; Start 10/01/19 at 06:15; Stop 10/01/19 at 06:16; Status DC Albuterol/ Ipratropium (Duoneb) 3 ml Q4HRS NEB Last administered on 11/29/19at 08:11; Start 10/01/19 at 08:00 Fentanyl Citrate 30 ml @ 0 mls/hr CONT PRN IV SEE PROTOCOL Last administered on 10/22/19at 08:03; Start 10/01/19 at 06:00; Stop 10/22/19 at 12:42; Status DC Propofol 100 ml @ 0 mls/hr CONT PRN IV SEE PROTOCOL Last administered on 10/08/19at 23:50; Start 10/01/19 at 06:00; Stop 11/21/19 at 09:45; Status DC Fentanyl Citrate (Fentanyl 2ml Vial) 25 mcg PRN Q1HR PRN IV SEE COMMENTS Last administered on 11/19/19at 23:56; Start 10/01/19 at 06:00; Stop 11/21/19 at 09:45; Status DC Fentanyl Citrate (Fentanyl 2ml Vial) 50 mcg PRN Q1HR PRN IV SEE COMMENTS Last administered on 11/21/19at 09:39; Start 10/01/19 at 06:00; Stop 11/21/19 at 09:45; Status DC Chlorhexidine Gluconate (Peridex) 15 ml BID MM ; Start 10/01/19 at 09:00; Stop 10/01/19 at 07:58; Status DC Potassium Acetate 40 meq/Magnesium Sulfate 5 meq/ Multivitamins 10 ml/Chromium/ Copper/Manganese/ Seleni/Zn 1 ml/ Insulin Human Regular 30 unit/ Total Parenteral Nutrition/Amino Acids/Dextrose/ Fat Emulsion Intravenous 1,920 ml @ 80 mls/hr TPN CONT IV Last administered on 10/01/19at 21:19; Start 10/01/19 at 22:00; Stop 10/02/19 at 21:59; Status DC Acetylcysteine (Mucomyst 20% Resp Treatment) 600 mg BID NEB Last administered on 10/07/19at 09:33; Start 10/01/19 at 21:00; Stop 10/07/19 at 10:39; Status DC Magnesium Sulfate 100 ml @ 25 mls/hr 1X ONCE IV Last administered on 10/01/19at 15:48; Start 10/01/19 at 15:45; Stop 10/01/19 at 19:44; Status DC Potassium Acetate 40 meq/Magnesium Sulfate 5 meq/ Multivitamins 10 ml/Chromium/ Copper/Manganese/ Seleni/Zn 1 ml/ Insulin Human Regular 30 unit/ Total Parenteral Nutrition/Amino Acids/Dextrose/ Fat Emulsion Intravenous 1,920 ml @ 80 mls/hr TPN CONT IV Last administered on 10/02/19at 21:35; Start 10/02/19 at 22:00; Stop 10/03/19 at 21:59; Status DC Potassium Chloride/Water 100 ml @ 100 mls/hr Q1H IV Last administered on 10/03/19at 08:31; Start 10/03/19 at 07:00; Stop 10/03/19 at 08:59; Status DC Potassium Acetate 40 meq/Magnesium Sulfate 5 meq/ Multivitamins 10 ml/Chromium/ Copper/Manganese/ Seleni/Zn 1 ml/ Insulin Human Regular 30 unit/ Total Parenteral Nutrition/Amino Acids/Dextrose/ Fat Emulsion Intravenous 1,920 ml @ 80 mls/hr TPN CONT IV Last administered on 10/03/19at 21:54; Start 10/03/19 at 22:00; Stop 10/04/19 at 19:34; Status DC Lidocaine HCl (Buffered Lidocaine 1%) 3 ml STK-MED ONCE .ROUTE ; Start 10/03/19 at 12:14; Stop 10/03/19 at 12:14; Status DC Lidocaine HCl (Buffered Lidocaine 1%) 3 ml 1X ONCE IJ Last administered on 10/03/19at 13:11; Start 10/03/19 at 13:00; Stop 10/03/19 at 13:01; Status DC Magnesium Sulfate 50 ml @ 25 mls/hr 1X ONCE IV ; Start 10/04/19 at 08:15; Stop 10/04/19 at 10:14; Status DC Potassium Acetate 40 meq/Magnesium Sulfate 10 meq/ Multivitamins 10 ml/Chromium/ Copper/Manganese/ Seleni/Zn 1 ml/ Insulin Human Regular 20 unit/ Total Parenteral Nutrition/Amino Acids/Dextrose/ Fat Emulsion Intravenous 1,920 ml @ 80 mls/hr TPN CONT IV Last administered on 10/04/19at 21:32; Start 10/04/19 at 22:00; Stop 10/05/19 at 21:59; Status DC Potassium Chloride/Water 100 ml @ 100 mls/hr Q1H IV Last administered on 10/05/19at 09:12; Start 10/05/19 at 08:00; Stop 10/05/19 at 09:59; Status DC Alteplase, Recombinant (Cathflo For Central Catheter Clearance) 4 mg 1X ONCE INT CAT ; Start 10/05/19 at 09:15; Stop 10/05/19 at 09:16; Status UNV Alteplase, Recombinant (Cathflo For Central Catheter Clearance) 4 mg 1X ONCE INT CAT ; Start 10/05/19 at 09:15; Stop 10/05/19 at 09:16; Status UNV Alteplase, Recombinant (Cathflo For Central Catheter Clearance) 4 mg 1X ONCE INT CAT ; Start 10/05/19 at 09:15; Stop 10/05/19 at 09:16; Status UNV Alteplase, Recombinant 4 mg/ Sodium Chloride 20 ml @ 20 mls/hr 1X ONCE IV Last administered on 10/05/19at 10:10; Start 10/05/19 at 10:00; Stop 10/05/19 at 10:59; Status DC Alteplase, Recombinant 4 mg/ Sodium Chloride 20 ml @ 20 mls/hr 1X ONCE IV Last administered on 10/05/19at 10:09; Start 10/05/19 at 10:00; Stop 10/05/19 at 10:59; Status DC Alteplase, Recombinant 4 mg/ Sodium Chloride 20 ml @ 20 mls/hr 1X ONCE IV Last administered on 10/05/19at 10:09; Start 10/05/19 at 10:00; Stop 10/05/19 at 10:59; Status DC Potassium Acetate 60 meq/Magnesium Sulfate 10 meq/ Multivitamins 10 ml/Chromium/ Copper/Manganese/ Seleni/Zn 1 ml/ Insulin Human Regular 20 unit/ Total Parenteral Nutrition/Amino Acids/Dextrose/ Fat Emulsion Intravenous 1,920 ml @ 80 mls/hr TPN CONT IV Last administered on 10/05/19at 21:55; Start 10/05/19 at 22:00; Stop 10/06/19 at 21:59; Status DC Albumin Human 500 ml @ 125 mls/hr 1X ONCE IV Last administered on 10/06/19at 12:01; Start 10/06/19 at 11:15; Stop 10/06/19 at 15:14; Status DC Sodium Chloride 500 ml @ 500 mls/hr 1X ONCE IV Last administered on 10/06/19at 13:50; Start 10/06/19 at 11:15; Stop 10/06/19 at 12:14; Status DC Potassium Acetate 60 meq/Magnesium Sulfate 14 meq/ Multivitamins 10 ml/Chromium/ Copper/Manganese/ Seleni/Zn 1 ml/ Insulin Human Regular 20 unit/ Total Paren teral Nutrition/Amino Acids/Dextrose/ Fat Emulsion Intravenous 1,920 ml @ 80 mls/hr TPN CONT IV Last administered on 10/06/19at 22:26; Start 10/06/19 at 22:00; Stop 10/07/19 at 21:59; Status DC Ciprofloxacin/ Dextrose 200 ml @ 200 mls/hr Q12HR IV Last administered on 10/13/19at 08:27; Start 10/06/19 at 21:00; Stop 10/13/19 at 08:56; Status DC Albumin Human 250 ml @ 62.5 mls/hr 1X ONCE IV Last administered on 10/07/19at 11:09; Start 10/07/19 at 11:00; Stop 10/07/19 at 14:59; Status DC Furosemide (Lasix) 20 mg 1X ONCE IVP Last administered on 10/07/19at 14:52; Start 10/07/19 at 10:45; Stop 10/07/19 at 10:49; Status DC Potassium Acetate 60 meq/Magnesium Sulfate 14 meq/ Multivitamins 10 ml/Chromium/ Copper/Manganese/ Seleni/Zn 1 ml/ Insulin Human Regular 15 unit/ Total Parenteral Nutrition/Amino Acids/Dextrose/ Fat Emulsion Intravenous 1,920 ml @ 80 mls/hr TPN CONT IV Last administered on 10/07/19at 22:08; Start 10/07/19 at 22:00; Stop 10/08/19 at 21:59; Status DC Potassium Acetate 60 meq/Magnesium Sulfate 14 meq/ Multivitamins 10 ml/Chromium/ Copper/Manganese/ Seleni/Zn 1 ml/ Insulin Human Regular 15 unit/ Total Parenteral Nutrition/Amino Acids/Dextrose/ Fat Emulsion Intravenous 1,920 ml @ 80 mls/hr TPN CONT IV Last administered on 10/08/19at 22:12; Start 10/08/19 at 22:00; Stop 10/09/19 at 21:59; Status DC Potassium Acetate 60 meq/Magnesium Sulfate 14 meq/ Multivitamins 10 ml/Chromium/ Copper/Manganese/ Seleni/Zn 1 ml/ Insulin Human Regular 15 unit/ Total Parenteral Nutrition/Amino Acids/Dextrose/ Fat Emulsion Intravenous 1,920 ml @ 80 mls/hr TPN CONT IV Last administered on 10/09/19at 22:22; Start 10/09/19 at 22:00; Stop 10/10/19 at 21:59; Status DC Furosemide (Lasix) 20 mg 1X ONCE IVP Last administered on 10/10/19at 11:07; Start 10/10/19 at 10:30; Stop 10/10/19 at 10:34; Status DC Potassium Acetate 60 meq/Magnesium Sulfate 14 meq/ Multivitamins 10 ml/Chromium/ Copper/Manganese/ Seleni/Zn 1 ml/ Insulin Human Regular 15 unit/ Sodium Chloride 20 meq/Total Parenteral Nutrition/Amino Acids/Dextrose/ Fat Emulsion Intravenous 1,920 ml @ 80 mls/hr TPN CONT IV Last administered on 10/10/19at 21:54; Start 10/10/19 at 22:00; Stop 10/11/19 at 21:59; Status DC Potassium Acetate 30 meq/Magnesium Sulfate 14 meq/ Multivitamins 10 ml/Chromium/ Copper/Manganese/ Seleni/Zn 1 ml/ Insulin Human Regular 15 unit/ Sodium Chloride 20 meq/Potassium Chloride 30 meq/ Total Parenteral Nutrition/Amino Acids/Dextrose/ Fat Emulsion Intravenous 1,920 ml @ 80 mls/hr TPN CONT IV Last administered on 10/11/19at 21:46; Start 10/11/19 at 22:00; Stop 10/12/19 at 21:59; Status DC Sodium Chloride 80 meq/Potassium Chloride 30 meq/ Potassium Acetate 30 meq /Magnesium Sulfate 14 meq/ Multivitamins 10 ml/Chromium/ Copper/Manganese/ Seleni/Zn 1 ml/ Insulin Human Regular 15 unit/ Total Parenteral Nutrition/Amino Acids/Dextrose/ Fat Emulsion Intravenous 1,920 ml @ 80 mls/hr TPN CONT IV Last administered on 10/12/19at 22:33; Start 10/12/19 at 22:00; Stop 10/13/19 at 21:59; Status DC Furosemide (Lasix) 40 mg 1X ONCE IVP Last administered on 10/12/19at 16:27; Start 10/12/19 at 15:30; Stop 10/12/19 at 15:33; Status DC Albumin Human 250 ml @ 62.5 mls/hr 1X ONCE IV Last administered on 10/12/19at 16:27; Start 10/12/19 at 15:30; Stop 10/12/19 at 19:29; Status DC Sodium Chloride 80 meq/Potassium Chloride 30 meq/ Potassium Acetate 30 meq/Magnesium Sulfate 14 meq/ Multivitamins 10 ml/Chromium/ Copper/Manganese/ Seleni/Zn 1 ml/ Insulin Human Regular 15 unit/ Total Parenteral Nutrition/Amino Acids/Dextrose/ Fat Emulsion Intravenous 1,920 ml @ 80 mls/hr TPN CONT IV Last administered on 10/13/19at 22:25; Start 10/13/19 at 22:00; Stop 10/14/19 at 21:59; Status DC Sodium Chloride 80 meq/Potassium Chloride 30 meq/ Potassium Acetate 30 meq/Magnesium Sulfate 14 meq/ Multivitamins 10 ml/Chromium/ Copper/Manganese/ Seleni/Zn 1 ml/ Insulin Human Regular 15 unit/ Total Parenteral Nutrition/Amino Acids/Dextrose/ Fat Emulsion Intravenous 1,920 ml @ 80 mls/hr TPN CONT IV Last administered on 10/14/19at 21:32; Start 10/14/19 at 22:00; Stop 10/15/19 at 21:59; Status DC Sodium Chloride 80 meq/Potassium Chloride 30 meq/ Potassium Acetate 30 meq/Magnesium Sulfate 14 meq/ Multivitamins 10 ml/Chromium/ Copper/Manganese/ Seleni/Zn 1 ml/ Insulin Human Regular 15 unit/ Total Parenteral Nutrition/Amino Acids/Dextrose/ Fat Emulsion Intravenous 1,920 ml @ 80 mls/hr TPN CONT IV Last administered on 10/15/19at 21:53; Start 10/15/19 at 22:00; Stop 10/16/19 at 21:59; Status DC Acetylcysteine (Mucomyst 20% Resp Treatment) 600 mg RTBID NEB Last administered on 11/29/19at 08:00; Start 10/15/19 at 12:00 Sodium Chloride 80 meq/Potassium Chloride 30 meq/ Potassium Acetate 30 meq/Magnesium Sulfate 14 meq/ Multivitamins 10 ml/Chromium/ Copper/Manganese/ Seleni/Zn 1 ml/ Insulin Human Regular 15 unit/ Total Parenteral Nutrition/Amino Acids/Dextrose/ Fat Emulsion Intravenous 1,920 ml @ 80 mls/hr TPN CONT IV Last administered on 10/16/19at 22:06; Start 10/16/19 at 22:00; Stop 10/17/19 at 21:59; Status DC Meropenem 500 mg/ Sodium Chloride 50 ml @ 100 mls/hr Q6HRS IV Last administ ered on 11/08/19at 06:15; Start 10/16/19 at 18:00; Stop 11/08/19 at 08:23; Status DC Daptomycin 500 mg/ Sodium Chloride 50 ml @ 100 mls/hr Q24H IV Last administered on 10/24/19at 21:47; Start 10/16/19 at 19:00; Stop 10/25/19 at 08:13; Status DC Sodium Chloride 80 meq/Potassium Chloride 30 meq/ Potassium Acetate 30 meq/Magnesium Sulfate 14 meq/ Multivitamins 10 ml/Chromium/ Copper/Manganese/ Seleni/Zn 1 ml/ Insulin Human Regular 15 unit/ Total Parenteral Nutrition/Amino Acids/Dextrose/ Fat Emulsion Intravenous 1,920 ml @ 80 mls/hr TPN CONT IV Last administered on 10/17/19at 22:09; Start 10/17/19 at 22:00; Stop 10/18/19 at 21:59; Status DC Heparin Sodium (Porcine) 1000 unit/Sodium Chloride 1,001 ml @ 1,001 mls/hr 1X ONCE IRR ; Start 10/18/19 at 06:00; Stop 10/18/19 at 06:59; Status DC Propofol (Diprivan) 200 mg STK-MED ONCE IV ; Start 10/18/19 at 07:44; Stop 10/18/19 at 07:44; Status DC Lidocaine HCl (Lidocaine Pf 2% Vial) 5 ml STK-MED ONCE .ROUTE ; Start 10/18/19 at 07:44; Stop 10/18/19 at 07:44; Status DC Fentanyl Citrate (Fentanyl 2ml Vial) 100 mcg STK-MED ONCE .ROUTE ; Start 10/18/19 at 07:44; Stop 10/18/19 at 07:44; Status DC Rocuronium [place] (Zemuron) 100 mg STK-MED ONCE .ROUTE ; Start 10/18/19 at 07:44; Stop 10/18/19 at 07:44; Status DC Micafungin Sodium 100 mg/Dextrose 100 ml @ 100 mls/hr Q24H IV Last administered on 11/22/19at 09:30; Start 10/18/19 at 08:30; Stop 11/23/19 at 08:20; Status DC Bupivacaine HCl/ Epinephrine Bitart (Sensorcain-Epi 0.5%-1:[id number] Mpf) 30 ml STK-MED ONCE .ROUTE ; Start 10/18/19 at 08:34; Stop 10/18/19 at 08:35; Status DC Iohexol (Omnipaque 300 Mg/ml) 50 ml STK-MED ONCE .ROUTE Last administered on 10/18/19at 13:30; Start 10/18/19 at 08:35; Stop 10/18/19 at 08:35; Status DC Sodium Chloride 80 meq/Potassium Chloride 30 meq/ Potassium Acetate 30 meq/Magnesium Sulfate 14 meq/ Multivitamins 10 ml/Chromium/ Copper/Manganese/ Seleni/Zn 1 ml/ Insulin Human Regular 15 unit/ Total Parenteral Nutrition/Amino Acids/Dextrose/ Fat Emulsion Intravenous 1,920 ml @ 80 mls/hr TPN CONT IV Last administered on 10/19/19at 01:22; Start 10/18/19 at 22:00; Stop 10/19/19 at 21:59; Status DC Phenylephrine HCl (Brayden-Synephrine Inj) 10 mg STK-MED ONCE .ROUTE ; Start 10/18/19 at 10:15; Stop 10/18/19 at 10:15; Status DC Desflurane (Suprane) 90 ml STK-MED ONCE IH ; Start 10/18/19 at 10:18; Stop 10/18/19 at 10:19; Status DC Albumin Human 500 ml @ As Directed STK-MED ONCE IV ; Start 10/18/19 at 11:06; Stop 10/18/19 at 11:06; Status DC Vasopressin (Vasostrict) 20 unit STK-MED ONCE .ROUTE ; Start 10/18/19 at 12:23; Stop 10/18/19 at 12:23; Status DC Phenylephrine HCl (Brayden-Synephrine Inj) 10 mg STK-MED ONCE .ROUTE ; Start 09/20 at 13:33; Stop 10/18/19 at 13:33; Status DC Phenylephrine HCl (Brayden-Synephrine Inj) 10 mg STK-MED ONCE .ROUTE ; Start 10/17 at 13:33; Stop 10/18/19 at 13:33; Status DC Ondansetron HCl (Zofran) 4 mg STK-MED ONCE .ROUTE ; Start 10/18/19 at 13:33; S top 10/18/19 at 13:33; Status DC Enoxaparin Sodium (Lovenox 40mg Syringe) 40 mg Q24H SQ Last administered on 11/29/19at 10:09; Start 10/19/19 at 08:00 Sodium Chloride (Normal Saline Flush) 3 ml QSHIFT PRN IV AFTER MEDS AND BLOOD DRAWS; Start 10/18/19 at 14:45; Stop 11/21/19 at 09:45; Status DC Naloxone HCl (Narcan) 0.4 mg PRN Q2MIN PRN IV SEE INSTRUCTIONS; Start 10/18/19 at 14:45; Stop 11/21/19 at 09:45; Status DC Sodium Chloride 1,000 ml @ 25 mls/hr Q24H IV Last administered on 11/20/19at 20:55; Start 10/18/19 at 14:33; Stop 11/21/19 at 09:45; Status DC Morphine Sulfate (Morphine Sulfate) 1 mg PRN Q1HR PRN IV PAIN Last administered on 11/12/19at 18:28; Start 10/18/19 at 14:45; Stop 11/21/19 at 09:45; Status DC Midazolam HCl 100 mg/Sodium Chloride 100 ml @ 1 mls/hr CONT PRN IV SEE I/O RECORD Last administered on 10/21/19at 18:48; Start 10/18/19 at 14:45; Stop 11/21/19 at 09:45; Status DC Phenylephrine HCl (PHENYLEPHRINE in 0.9% NACL PF) 1 mg STK-MED ONCE IV ; Start 10/18/19 at 14:44; Stop 10/18/19 at 14:45; Status DC Ephedrine Sulfate (ePHEDrine PF IN SALINE SYRINGE) 50 mg STK-MED ONCE IV ; Start 10/18/19 at 14:45; Stop 10/18/19 at 14:45; Status DC Vasopressin 20 unit/Dextrose 101 ml @ 12 mls/hr CONT PRN IV SEE I/O RECORD Last administered on 10/25/19at 04:17; Start 10/18/19 at 15:30; Stop 11/21/19 at 09:45; Status DC Sodium Chloride 1,000 ml @ 1,000 mls/hr 1X ONCE IV Last administered on 10/18/19at 15:42; Start 10/18/19 at 15:45; Stop 10/18/19 at 16:44; Status DC Albumin Human 500 ml @ 125 mls/hr 1X ONCE IV ; Start 10/18/19 at 16:00; Stop 10/18/19 at 19:59; Status DC Albumin Human 500 ml @ 125 mls/hr PRN Q1HR PRN IV PER PROTOCOL; Start 10/18/19 at 15:45; Stop 11/21/19 at 09:52; Status DC Magnesium Sulfate 50 ml @ 25 mls/hr 1X ONCE IV Last administered on 10/18/19at 17:02; Start 10/18/19 at 16:30; Stop 10/18/19 at 18:29; Status DC Sodium Bicarbonate (Sodium Bicarb Adult 8.4% Syr) 50 meq STK-MED ONCE .ROUTE ; Start 10/18/19 at 16:20; Stop 10/18/19 at 16:20; Status DC Sodium Bicarbonate (Sodium Bicarb Adult 8.4% Syr) 100 meq 1X ONCE IV Last administered on 10/18/19at 17:07; Start 10/18/19 at 16:30; Stop 10/18/19 at 16:31; Status DC Sodium Bicarbonate 150 meq/Dextrose 1,150 ml @ 75 mls/hr 1X ONCE IV Last administered on 10/18/19at 20:02; Start 10/18/19 at 16:30; Stop 10/19/19 at 07:49; Status DC Sodium Chloride 80 meq/Potassium Chloride 30 meq/ Potassium Acetate 30 meq/Magnesium Sulfate 14 meq/ Multivitamins 10 ml/Chromium/ Copper/Manganese/ Seleni/Zn 1 ml/ Insulin Human Regular 15 unit/ Total Parenteral Nutrition/Amino Acids/Dextrose/ Fat Emulsion Intravenous 1,920 ml @ 80 mls/hr TPN CONT IV Last administered on 10/19/19at 23:05; Start 10/19/19 at 22:00; Stop 10/20/19 at 21:59; Status DC Sodium Chloride 100 meq/Potassium Chloride 30 meq/ Potassium Acetate 30 meq/Magnesium Sulfate 12 meq/ Multivitamins 10 ml/Chromium/ Copper/Manganese/ Seleni/Zn 1 ml/ Insulin Human Regular 15 unit/ Total Parenteral Nutrition/Amino Acids/Dextrose/ Fat Emulsion Intravenous 1,920 ml @ 80 mls/hr TPN CONT IV Last administered on 10/20/19at 21:52; Start 10/20/19 at 22:00; Stop 10/21/19 at 21:59; Status DC Sodium Chloride 100 meq/Potassium Chloride 30 meq/ Potassium Acetate 30 meq/Magnesium Sulfate 12 meq/ Multivitamins 10 ml/Chromium/ Copper/Manganese/ Seleni/Zn 1 ml/ Insulin Human Regular 15 unit/ Total Parenteral Nutrition/Amino Acids/Dextrose/ Fat Emulsion Intravenous 1,920 ml @ 80 mls/hr TPN CONT IV Last administered on 10/21/19at 21:46; Start 10/21/19 at 22:00; Stop 10/22/19 at 21:59; Status DC Sodium Chloride 100 meq/Potassium Chloride 30 meq/ Potassium Acetate 30 meq/Magnesium Sulfate 12 meq/ Multivitamins 10 ml/Chromium/ Copper/Manganese/ Seleni/Zn 1 ml/ Insulin Human Regular 15 unit/ Total Parenteral Nutrition/Amino Acids/Dextrose/ Fat Emulsion Intravenous 1,800 ml @ 75 mls/hr TPN CONT IV Last administered on 10/22/19at 22:04; Start 10/22/19 at 22:00; Stop 10/23/19 at 21:59; Status DC Fentanyl Citrate 55 ml @ 0 mls/hr CONT PRN IV SEE COMMENTS Last administered on 10/24/19at 23:55; Start 10/22/19 at 13:00; Stop 10/27/19 at 17:28; Status DC Sodium Chloride 100 meq/Potassium Chloride 30 meq/ Potassium Acetate 30 meq/Magnesium Sulfate 12 meq/ Multivitamins 10 ml/Chromium/ Copper/Manganese/ Seleni/Zn 1 ml/ Insulin Human Regular 15 unit/ Total Parenteral Nutrition/Amino Acids/Dextrose/ Fat Emulsion Intravenous 1,680 ml @ 70 mls/hr TPN CONT IV Last administered on 10/23/19at 21:23; Start 10/23/19 at 22:00; Stop 10/24/19 at 21:59; Status DC Sodium Chloride 110 meq/Potassium Chloride 30 meq/ Potassium Acetate 30 meq/Magnesium Sulfate 15 meq/ Multivitamins 10 ml/Chromium/ Copper/Manganese/ Seleni/Zn 1 ml/ Insulin Human Regular 15 unit/ Total Parenteral Nutrition/Amino Acids/Dextrose/ Fat Emulsion Intravenous 1,680 ml @ 70 mls/hr TPN CONT IV Last administered on 10/24/19at 21:48; Start 10/24/19 at 22:00; Stop 10/25/19 at 21:59; Status DC Sodium Chloride 110 meq/Potassium Chloride 30 meq/ Potassium Acetate 30 meq /Magnesium Sulfate 15 meq/ Multivitamins 10 ml/Chromium/ Copper/Manganese/ Seleni/Zn 1 ml/ Insulin Human Regular 15 unit/ Total Parenteral Nutrition/Amino Acids/Dextrose/ Fat Emulsion Intravenous 1,680 ml @ 70 mls/hr TPN CONT IV Last administered on 10/25/19at 21:33; Start 10/25/19 at 22:00; Stop 10/26/19 at 21:59; Status DC Sodium Chloride 110 meq/Potassium Chloride 30 meq/ Potassium Acetate 30 meq/Magnesium Sulfate 15 meq/ Multivitamins 10 ml/Chromium/ Copper/Manganese/ Seleni/Zn 1 ml/ Insulin Human Regular 15 unit/ Total Parenteral Nutrition/Amino Acids/Dextrose/ Fat Emulsion Intravenous 1,680 ml @ 70 mls/hr TPN CONT IV Last administered on 10/26/19at 21:51; Start 10/26/19 at 22:00; Stop 10/27/19 at 21:59; Status DC Sodium Chloride 90 meq/Potassium Chloride 30 meq/ Potassium Acetate 30 meq/Magnesium Sulfate 15 meq/ Multivitamins 10 ml/Chromium/ Copper/Manganese/ Seleni/Zn 1 ml/ Insulin Human Regular 15 unit/ Total Parenteral Nutrition/Amino Acids/Dextrose/ Fat Emulsion Intravenous 1,680 ml @ 70 mls/hr TPN CONT IV Last administered on 10/27/19at 22:38; Start 10/27/19 at 22:00; Stop 10/28/19 at 21:59; Status DC Fentanyl Citrate 30 ml @ 0 mls/hr CONT PRN IV SEE I/O RECORD; Start 10/27/19 at 17:30; Stop 11/21/19 at 09:45; Status DC Fentanyl (Duragesic 12mcg/ Hr Patch) 1 patch Q3DAYS TD Last administered on 11/27/19at 09:09; Start 10/28/19 at 09:00 Sodium Chloride 90 meq/Potassium Chloride 30 meq/ Potassium Acetate 30 meq/Magnesium Sulfate 15 meq/ Multivitamins 10 ml/Chromium/ Copper/Manganese/ Seleni/Zn 1 ml/ Insulin Human Regular 15 unit/ Total Parenteral Nutrition/Amino Acids/Dextrose/ Fat Emulsion Intravenous 1,680 ml @ 70 mls/hr TPN CONT IV Last administered on 10/28/19at 21:59; Start 10/28/19 at 22:00; Stop 10/29/19 at 21:59; Status DC Sodium Chloride 90 meq/Potassium Chloride 30 meq/ Potassium Acetate 30 meq/Magnesium Sulfate 15 meq/ Multivitamins 10 ml/Chromium/ Copper/Manganese/ Seleni/Zn 1 ml/ Insulin Human Regular 15 unit/ Total Parenteral Nutrition/Amino Acids/Dextrose/ Fat Emulsion Intravenous 1,680 ml @ 70 mls/hr TPN CONT IV Last administered on 10/29/19at 21:35; Start 10/29/19 at 22:00; Stop 10/30/19 at 21:59; Status DC Vancomycin HCl (Vanco Per Pharmacy) 1 each PRN DAILY PRN MC SEE COMMENTS Last administered on 11/01/19at 02:46; Start 10/30/19 at 09:15; Stop 11/02/19 at 07:41; Status DC Ciprofloxacin/ Dextrose 200 ml @ 200 mls/hr Q12HR IV Last administered on 11/07/19at 21:02; Start 10/30/19 at 10:00; Stop 11/08/19 at 08:20; Status DC Vancomycin HCl 2 gm/Sodium Chloride 500 ml @ 250 mls/hr 1X ONCE IV Last administered on 10/30/19at 10:34; Start 10/30/19 at 10:00; Stop 10/30/19 at 11:59; Status DC Sodium Chloride 90 meq/Potassium Chloride 30 meq/ Potassium Acetate 30 meq/Magnesium Sulfate 15 meq/ Multivitamins 10 ml/Chromium/ Copper/Manganese/ Seleni/Zn 1 ml/ Insulin Human Regular 15 unit/ Total Parenteral Nutrition/Amino Acids/Dextrose/ Fat Emulsion Intravenous 1,680 ml @ 70 mls/hr TPN CONT IV Last administered on 10/30/19at 22:02; Start 10/30/19 at 22:00; Stop 10/31/19 at 21:59; Status DC Diphenhydramine HCl (Benadryl) 25 mg 1X ONCE IVP Last administered on 10/30/19at 14:26; Start 10/30/19 at 14:30; Stop 10/30/19 at 14:31; Status DC Vancomycin HCl 1.5 gm/Sodium Chloride 500 ml @ 250 mls/hr Q8H IV Last administered on 10/31/19at 03:08; Start 10/30/19 at 18:30; Stop 10/31/19 at 12:24; Status DC Vancomycin HCl (Vancomycin Trough Level) 1 each 1X ONCE MC Last administered on 10/31/19at 10:00; Start 10/31/19 at 10:00; Stop 10/31/19 at 10:01; Status DC Sodium Chloride 90 meq/Potassium Chloride 30 meq/ Potassium Acetate 30 meq/Magnesium Sulfate 15 meq/ Multivitamins 10 ml/Chromium/ Copper/Manganese/ Seleni/Zn 1 ml/ Insulin Human Regular 15 unit/ Total Parenteral Nutrition/Amino Acids/Dextrose/ Fat Emulsion Intravenous 1,680 ml @ 70 mls/hr TPN CONT IV Last administered on 10/31/19at 22:13; Start 10/31/19 at 22:00; Stop 11/01/19 at 21:59; Status DC Vancomycin HCl (Vancomycin Random Level) 1 each 1X ONCE MC Last administered on 11/01/19at 01:00; Start 11/01/19 at 01:00; Stop 11/01/19 at 01:01; Status DC Vancomycin HCl 1.5 gm/Sodium Chloride 500 ml @ 250 mls/hr Q12H IV Last administered on 11/01/19at 22:07; Start 11/01/19 at 10:00; Stop 11/02/19 at 07:41; Status DC Vancomycin HCl (Vancomycin Trough Level) 1 each 1X ONCE MC ; Start 11/02/19 at 09:30; Stop 11/02/19 at 09:31; Status Cancel Sodium Chloride 90 meq/Potassium Chloride 30 meq/ Potassium Acetate 30 meq/Mag nesium Sulfate 15 meq/ Multivitamins 10 ml/Chromium/ Copper/Manganese/ Seleni/Zn 1 ml/ Insulin Human Regular 15 unit/ Total Parenteral Nutrition/Amino Acids/Dextrose/ Fat Emulsion Intravenous 1,680 ml @ 70 mls/hr TPN CONT IV Last administered on 11/01/19at 22:08; Start 11/01/19 at 22:00; Stop 11/02/19 at 21:59; Status DC Alteplase, Recombinant (Cathflo For Central Catheter Clearance) 1 mg 1X ONCE INT CAT Last administered on 11/01/19at 11:49; Start 11/01/19 at 11:00; Stop 11/01/19 at 11:01; Status DC Daptomycin 500 mg/ Sodium Chloride 50 ml @ 100 mls/hr Q24H IV Last administered on 11/11/19at 08:25; Start 11/02/19 at 09:00; Stop 11/11/19 at 08:38; Status DC Sodium Chloride 90 meq/Potassium Chloride 30 meq/ Potassium Acetate 30 meq/Magnesium Sulfate 15 meq/ Multivitamins 10 ml/Chromium/ Copper/Manganese/ Seleni/Zn 1 ml/ Insulin Human Regular 15 unit/ Total Parenteral Nutrition/Amino Acids/Dextrose/ Fat Emulsion Intravenous 1,680 ml @ 70 mls/hr TPN CONT IV Last administered on 11/02/19at 22:55; Start 11/02/19 at 22:00; Stop 11/03/19 at 21:59; Status DC Sodium Chloride 90 meq/Potassium Chloride 30 meq/ Potassium Acetate 30 meq/ Magnesium Sulfate 15 meq/ Multivitamins 10 ml/Chromium/ Copper/Manganese/ Seleni/Zn 1 ml/ Insulin Human Regular 15 unit/ Total Parenteral Nutrition/Amino Acids/Dextrose/ Fat Emulsion Intravenous 1,680 ml @ 70 mls/hr TPN CONT IV Last administered on 11/03/19at 22:06; Start 11/03/19 at 22:00; Stop 11/04/19 at 21:59; Status DC Diphenhydramine HCl (Benadryl) 50 mg STK-MED ONCE .ROUTE ; Start 11/03/19 at 18:34; Stop 11/03/19 at 18:35; Status DC Diphenhydramine HCl (Benadryl) 25 mg 1X ONCE IM ; Start 11/03/19 at 18:45; Stop 11/03/19 at 18:46; Status DC Diphenhydramine HCl (Benadryl) 25 mg 1X ONCE IVP Last administered on 11/03/19at 18:56; Start 11/03/19 at 19:00; Stop 11/03/19 at 19:01; Status DC Alprazolam (Xanax) 0.5 mg PRN TID PRN PO ANXIETY / AGITATION Last administered on 11/10/19at 11:49; Start 11/04/19 at 08:00; Stop 11/10/19 at 15:54; Status DC Sodium Chloride 110 meq/Potassium Chloride 30 meq/ Potassium Acetate 30 meq/Magnesium Sulfate 15 meq/ Multivitamins 10 ml/Chromium/ Copper/Manganese/ Seleni/Zn 1 ml/ Insulin Human Regular 15 unit/ Total Parenteral Nutrition/Amino Acids/Dextrose/ Fat Emulsion Intravenous 1,680 ml @ 70 mls/hr TPN CONT IV Last administered on 11/04/19at 21:21; Start 11/04/19 at 22:00; Stop 11/05/19 at 21:59; Status DC Sodium Chloride 110 meq/Potassium Chloride 30 meq/ Potassium Acetate 30 meq/Magnesium Sulfate 15 meq/ Multivitamins 10 ml/Chromium/ Copper/Manganese/ Seleni/Zn 1 ml/ Insulin Human Regular 15 unit/ Total Parenteral Nutrition/Amino Acids/Dextrose/ Fat Emulsion Intravenous 1,680 ml @ 70 mls/hr TPN CONT IV Last administered on 11/05/19at 22:01; Start 11/05/19 at 22:00; Stop 11/06/19 at 21:59; Status DC Alteplase, Recombinant (Cathflo For Central Catheter Clearance) 1 mg 1X ONCE INT CAT Last administered on 11/06/19at 08:23; Start 11/06/19 at 08:15; Stop 11/06/19 at 08:16; Status DC Sodium Chloride 110 meq/Sodium Phosphate 10 mmol/ Potassium Chloride 30 meq/ Potassium Acetate 30 meq/Magnesium Sulfate 15 meq/ Multivitamins 10 ml/Chromium/ Copper/Manganese/ Seleni/Zn 1 ml/ Insulin Human Regular 15 unit/ Total Parenteral Nutrition/Amino Acids/Dextrose/ Fat Emulsion Intravenous 1,680 ml @ 70 mls/hr TPN CONT IV Last administered on 11/06/19at 22:03; Start 11/06/19 at 22:00; Stop 11/07/19 at 21:59; Status DC Sodium Chloride 120 meq/Sodium Phosphate 10 mmol/ Potassium Chloride 30 meq/ Potassium Acetate 30 meq/Magnesium Sulfate 15 meq/ Multivitamins 10 ml/Chromium/ Copper/Manganese/ Seleni/Zn 1 ml/ Insulin Human Regular 15 unit/ Total Parenteral Nutrition/Amino Acids/Dextrose/ Fat Emulsion Intravenous 1,680 ml @ 70 mls/hr TPN CONT IV Last administered on 11/07/19at 22:08; Start 11/07/19 at 22:00; Stop 11/08/19 at 21:59; Status DC Ceftazidime/ Avibactam 2.5 gm/ Sodium Chloride 100 ml @ 50 mls/hr Q8HRS IV Last administered on 11/09/19at 05:32; Start 11/08/19 at 14:00; Stop 11/09/19 at 07:48; Status DC Alteplase, Recombinant (Cathflo For Central Catheter Clearance) 1 mg 1X ONCE INT CAT Last administered on 11/08/19at 09:30; Start 11/08/19 at 09:30; Stop 11/08/19 at 09:31; Status DC Sodium Chloride 120 meq/Sodium Phosphate 10 mmol/ Potassium Chloride 30 meq/ Potassium Acetate 30 meq/Magnesium Sulfate 15 meq/ Multivitamins 10 ml/Chromium/ Copper/Manganese/ Seleni/Zn 1 ml/ Insulin Human Regular 15 unit/ Total Parenteral Nutrition/Amino Acids/Dextrose/ Fat Emulsion Intravenous 1,680 ml @ 70 mls/hr TPN CONT IV Last administered on 11/08/19at 22:11; Start 11/08/19 at 22:00; Stop 11/09/19 at 21:59; Status DC Iohexol (Omnipaque 300 Mg/ml) 75 ml 1X ONCE IV Last administered on 11/08/19at 11:30; Start 11/08/19 at 11:30; Stop 11/08/19 at 11:31; Status DC Info (CONTRAST GIVEN -- Rx MONITORING) 1 each PRN DAILY PRN MC SEE COMMENTS; Start 11/08/19 at 11:45; Stop 11/10/19 at 11:44; Status DC Alteplase, Recombinant (Cathflo For Central Catheter Clearance) 1 mg 1X ONCE INT CAT Last administered on 11/08/19at 12:17; Start 11/08/19 at 12:00; Stop 11/08/19 at 12:01; Status DC Cefepime HCl (Maxipime) 2 gm Q12HR IVP Last administered on 11/09/19at 20:53; Start 11/09/19 at 09:00; Stop 11/10/19 at 07:30; Status DC Sodium Chloride 120 meq/Sodium Phosphate 10 mmol/ Potassium Chloride 30 meq/ Potassium Acetate 30 meq/Magnesium Sulfate 15 meq/ Multivitamins 10 ml/Chromium/ Copper/Manganese/ Seleni/Zn 1 ml/ Insulin Human Regular 15 unit/ Total Parenteral Nutrition/Amino Acids/Dextrose/ Fat Emulsion Intravenous 1,680 ml @ 70 mls/hr TPN CONT IV Last administered on 11/09/19at 21:25; Start 11/09/19 at 22:00; Stop 11/10/19 at 21:59; Status DC Ceftazidime/ Avibactam 2.5 gm/ Sodium Chloride 250 ml @ 125 mls/hr Q8HRS IV Last administered on 11/23/19at 05:38; Start 11/10/19 at 08:00; Stop 11/23/19 at 08:20; Status DC Sodium Chloride 120 meq/Sodium Phosphate 10 mmol/ Potassium Chloride 30 meq/ Potassium Acetate 30 meq/Magnesium Sulfate 15 meq/ Multivitamins 10 ml/Chromium/ Copper/Manganese/ Seleni/Zn 1 ml/ Insulin Human Regular 15 unit/ Total Parenteral Nutrition/Amino Acids/Dextrose/ Fat Emulsion Intravenous 1,680 ml @ 70 mls/hr TPN CONT IV Last administered on 11/10/19at 22:35; Start 11/10/19 at 22:00; Stop 11/11/19 at 21:59; Status DC Alprazolam (Xanax) 0.5 mg PRN QID PRN PO ANXIETY / AGITATION Last administered on 11/29/19at 02:50; Start 11/10/19 at 16:00 Acetaminophen/ Hydrocodone Bitart (Lortab 5/325) 1 tab PRN Q4HRS PRN PO PAIN Last administered on 11/29/19at 06:53; Start 11/10/19 at 16:00 Sodium Chloride 120 meq/Sodium Phosphate 10 mmol/ Potassium Chloride 30 meq/ Pot assium Acetate 30 meq/Magnesium Sulfate 15 meq/ Multivitamins 10 ml/Chromium/ Copper/Manganese/ Seleni/Zn 1 ml/ Insulin Human Regular 15 unit/ Total Parenteral Nutrition/Amino Acids/Dextrose/ Fat Emulsion Intravenous 1,680 ml @ 70 mls/hr TPN CONT IV Last administered on 11/11/19at 21:50; Start 11/11/19 at 22:00; Stop 11/12/19 at 21:59; Status DC Sodium Chloride 120 meq/Sodium Phosphate 10 mmol/ Potassium Chloride 30 meq/ Potassium Acetate 30 meq/Magnesium Sulfate 15 meq/ Multivitamins 10 ml/Chromium/ Copper/Manganese/ Seleni/Zn 1 ml/ Insulin Human Regular 15 unit/ Total Parenteral Nutrition/Amino Acids/Dextrose/ Fat Emulsion Intravenous 1,680 ml @ 70 mls/hr TPN CONT IV Last administered on 11/12/19at 22:14; Start 11/12/19 at 22:00; Stop 11/13/19 at 21:59; Status DC Daptomycin 500 mg/ Sodium Chloride 50 ml @ 100 mls/hr Q24H IV Last administered on 11/22/19at 09:20; Start 11/13/19 at 09:00; Stop 11/23/19 at 08:20; Status DC Sodium Chloride 120 meq/Sodium Phosphate 10 mmol/ Potassium Chloride 30 meq/ Potassium Acetate 30 meq/Magnesium Sulfate 15 meq/ Multivitamins 10 ml/Chromium/ Copper/Manganese/ Seleni/Zn 1 ml/ Insulin Human Regular 15 unit/ Total Parenteral Nutrition/Amino Acids/Dextrose/ Fat Emulsion Intravenous 1,680 ml @ 70 mls/hr TPN CONT IV ; Start 11/13/19 at 22:00; Stop 11/14/19 at 21:59; Status Cancel Amino Acids/ Glycerin/ Electrolytes 1,000 ml @ 80 mls/hr [id number] IV Last administered on 11/19/19at 18:10; Start 11/13/19 at 10:15; Stop 11/20/19 at 07:07; Status DC Iohexol (Omnipaque 300 Mg/ml) 50 ml 1X ONCE IJ ; Start 11/15/19 at 11:00; Stop 11/15/19 at 11:01; Status DC Sodium Chloride 500 ml @ 500 mls/hr 1X ONCE IV Last administered on 11/15/19at 18:30; Start 11/15/19 at 18:30; Stop 11/15/19 at 19:29; Status DC Lidocaine HCl (Buffered Lidocaine 1%) 3 ml 1X ONCE INJ ; Start 11/17/19 at 12:15; Stop 11/17/19 at 12:17; Status DC Fentanyl Citrate (Fentanyl 2ml Vial) 25 mcg PRN Q6HRS PRN IVP SEE INSTUCTIONS Last administered on 11/27/19at 06:00; Start 11/21/19 at 10:00 Sodium Chloride 1,000 ml @ 125 mls/hr Q8H IV Last administered on 11/21/19at 23:16; Start 11/21/19 at 23:21; Stop 11/22/19 at 09:23; Status DC Sodium Chloride 1,000 ml @ 350 mls/hr 1X ONCE IV Last administered on 11/21/19at 20:29; Start 11/21/19 at 20:30; Stop 11/21/19 at 23:21; Status DC Vitamin A/Vitamin D (Vitamin A & D Ointment) 1 ramu PRN Q1HR PRN TP SKIN PROTECTION Last administered on 11/29/19at 10:44; Start 11/22/19 at 09:15 Iohexol (Omnipaque 240 Mg/ml) 50 ml STK-MED ONCE .ROUTE ; Start 11/22/19 at 14:18; Stop 11/22/19 at 14:19; Status DC Lidocaine HCl (Buffered Lidocaine 1%) 3 ml STK-MED ONCE .ROUTE ; Start 11/22/19 at 14:19; Stop 11/22/19 at 14:19; Status DC Fentanyl Citrate (Fentanyl 2ml Vial) 100 mcg STK-MED ONCE .ROUTE ; Start 11/22/19 at 15:03; Stop 11/22/19 at 15:03; Status DC Lidocaine HCl (Buffered Lidocaine 1%) 5 ml 1X ONCE INJ Last administered on 11/22/19at 15:00; Start 11/22/19 at 15:45; Stop 11/22/19 at 15:46; Status DC Iohexol (Omnipaque 240 Mg/ml) 10 ml 1X ONCE IJ Last administered on 11/22/19at 15:00; Start 11/22/19 at 15:45; Stop 11/22/19 at 15:46; Status DC Multivitamins/ Minerals Therapeutic (Centrum Multivit-Mineral Liq) 5 ml DAILY PEG Last administered on 11/29/19at 10:08; Start 11/23/19 at 09:00 Alteplase, Recombinant 5 mg/ Sodium Chloride 30 ml @ 30 mls/hr 1X PRN IV SEE COMMENTS; Start 11/23/19 at 06:45; Status UNV Alteplase, Recombinant (Cathflo For Central Catheter Clearance) 1 mg 1X ONCE INT CAT Last administered on 11/23/19at 09:30; Start 11/23/19 at 07:00; Stop 11/23/19 at 07:01; Status DC Sodium Chloride 1,000 ml @ 125 mls/hr 1X ONCE IV Last administered on 11/23/19at 16:12; Start 11/23/19 at 14:30; Stop 11/23/19 at 22:29; Status DC Furosemide (Lasix) 40 mg 1X ONCE IVP Last administered on 11/23/19at 16:17; Start 11/23/19 at 14:30; Stop 11/23/19 at 14:33; Status DC Furosemide (Lasix) 40 mg [id number] IVP Last administered on 11/24/19at 13:51; Start 11/24/19 at 09:00; Stop 11/24/19 at 14:01; Status DC Sodium Chloride 1,000 ml @ 125 mls/hr 1X ONCE IV Last administered on 11/24/19at 08:20; Start 11/24/19 at 07:45; Stop 11/24/19 at 15:44; Status DC Calcitonin [place] (Miacalcin) 400 unit BID SQ Last administered on 11/24/19at 18:18; Start 11/24/19 at 18:00; Stop 11/25/19 at 15:56; Status DC Zoledronic Acid 100 ml @ 400 mls/hr 1X ONCE IV Last administered on 11/25/19at 13:04; Start 11/25/19 at 12:00; Stop 11/25/19 at 12:14; Status DC Metoprolol Tartrate (Lopressor Vial) 5 mg 1X ONCE IVP Last administered on 11/27/19at 10:54; Start 11/27/19 at 10:45; Stop 11/27/19 at 10:46; Status DC Cefepime HCl (Maxipime) 2 gm Q12HR IVP Last administered on 11/29/19at 09:43; Start 11/28/19 at 10:00 Metronidazole 100 ml @ 100 mls/hr Q12HR IV Last administered on 11/29/19at 09:52; Start 11/28/19 at 10:00 Sodium Chloride 1,000 ml @ 75 mls/hr [id number] IV Last administered on 11/29/19at 09:55; Start 11/28/19 at 18:45 Active Scripts Active Reported Bisoprolol Fumarate 5 Mg Tablet 10 Mg PO DAILY Vitals/I & O Vital Sign - Last 24 Hours 11/28/19 11/28/19 11/28/19 11/28/19 12:36 13:11 15:00 16:05 Temp 102.0 102.0 Pulse 165 155 Resp 58 B/P (MAP) 116/54 101/56 (71) Pulse Ox 99 97 96 O2 Delivery Nasal Cannula Nasal Cannula Room Air O2 Flow Rate 4.0 5.0 11/28/19 11/28/19 11/28/19 11/28/19 17:58 19:25 19:50 19:55 Temp 99.2 98.2 99.2 98.2 Pulse 136 Resp 40 B/P (MAP) 100/67 (78) Pulse Ox 98 100 O2 Delivery Nasal Cannula Nasal Cannula Nasal Cannula O2 Flow Rate 3.0 3.0 3.0 11/28/19 11/29/19 11/29/19 11/29/19 22:30 00:40 02:30 02:51 Temp 98.4 98.8 98.4 98.8 Pulse 139 146 Resp 44 40 38 B/P (MAP) 97/62 (74) 101/64 (76) Pulse Ox 98 100 99 100 O2 Delivery Nasal Cannula Nasal Cannula Nasal Cannula Nasal Cannula O2 Flow Rate 3.0 3.0 3.0 3.0 11/29/19 11/29/19 11/29/19 11/29/19 03:30 03:51 06:53 07:00 Temp 97.3 97.3 Pulse 145 Resp 38 40 40 B/P (MAP) 108/69 (82) Pulse Ox 100 100 100 100 O2 Delivery Nasal Cannula Nasal Cannula Nasal Cannula Nasal Cannula O2 Flow Rate 2.0 3.0 1.0 3.0 11/29/19 11/29/19 11/29/19 08:14 10:02 11:00 Temp 99.3 99.3 Pulse 150 130 Resp 40 B/P (MAP) 116/60 108/57 (74) Pulse Ox 100 99 O2 Delivery Nasal Cannula Nasal Cannula O2 Flow Rate 2.0 3.0 Intake and Output 11/28/19 11/28/19 11/29/19 15:00 23:00 07:00 Intake Total 200 ml 300 ml 1380 ml Output Total 1025 ml 750 ml Balance 200 ml -725 ml 630 ml Justicifation of Admission Dx: Justifications for Admission: Justification of Admission Dx: Yes GREG HERRERA MD Nov 29, 2019 12:31
--- NOTE | 2019-11-29 13:42 | RAD ---
PORTABLE CHEST 1V Clinical Indication: Reason: SOB / Spl. Instructions: / History: Comparison: AP chest, 2 days ago. Findings: Tracheostomy is in stable position. There is right PICC, tip in upper right atrium. The cardiomediastinal silhouette is stable. There is no pneumothorax. Small bilateral pleural effusions and mild bibasilar airspace disease are not significantly changed. No acute bone abnormality. IMPRESSION: 1. Stable life support devices. 2. Small bilateral pleural effusions and mild bibasilar airspace disease are unchanged. Electronically signed by: Masoud Avila MD (11/29/2019 1:39 PM) [id number]
[2019-11-29] MEDS ORDERED: IV NORMAL SALINE 1000ML BAG 1,000 ML IV ONE (14:00)
[2019-11-29 14:16] LABS: BASE EXCESS ABG -9 mmol/L (-3-3); HCO3 ABG 17 mmol/L (21-28); PCO2 ABG 35 mmHg (35-46); PO2 ABG 105 mmHg (75-108); SAT O2 ABG 98 % (92-99)
[2019-11-29 14:25] LABS: FIO2 ABG 4L N.C.
[2019-11-29] MEDS ORDERED: SODIUM BICARB ADULT 8.4% 50 MEQ/50 ML DISP.SYRIN. IV ONE (14:30)
[2019-11-29] MEDS ORDERED: SODIUM BICARB ADULT 8.4% 50 MEQ/50 ML DISP.SYRIN. ONE (14:30)
--- NOTE | 2019-11-29 14:30 | NUR ---
SS following up with discharge planning. SS reviewed pt chart and discussed with pt RN. Pt had rapid today. Pt currently requiring oxygen. Trach still in place. Pt on tube feeds. Pt on IV Flagyl and IV Cefepime. Pt continues to have drainage from drain sites. Pt max assist with PT/OT and staff. Med Assist continuing to make attempts to contact pt's daughters for needed paperwork for disability application. SS will continue to follow for discharge planning.
[2019-11-29] MEDS: IV RINGERS,LACTATED 1000ML 1,000 ML IV SCH ×2 (14:33→20:41)
--- NOTE | 2019-11-29 14:46 | NUR ---
Rapid Respone called for patient. Uupn arrival in room. Pt alert looking at nurses, RT at bedside and 4LNC currently on. RN states BP low. RR is in the 40's with a HR in the 130-145. All drains checked to make sure pt did not have abundance on output. RN stated that pt only had 60cc of urine last night. Dr Lindquist had been notified and fluid bolus was infusing. BP as follows 1350 77/32 1400 93/39 1405 86/37 1411 87/46 1415 88/49 1428 90/51 1430 91/51 1436 98/51 1441 90/52 Fluid bolus finished ABG was drawn per RT and results called to Dr Hamilton and orders received. Dr Lindquist at bedside and orders received. New labs drawn, cbc, cmp, lactic Pt examined and abd palpated pt stated she had pain in the belly but it was not any different than previous. Medication given as per order and currently pt is resting with her eyes closed. Doctors updated Addendum: 11/29/19 at 1454 by CHRISTIAN DAVIS RN Amended: Links added.
[2019-11-29 14:51] LABS: BASO % 0 % (0-3); EOS % 0 % (0-3); HEMATOCRIT 23.4 % (36.0-47.0); HEMOGLOBIN 7.4 g/dL (12.0-15.5); LYMPH # 0.4 x10^3/uL (1.0-4.8); LYMPH % 2 % (24-48); MEAN CORPUSCULAR HEMOGLOBIN 28 pg (25-35); MEAN CORPUSCULAR HGB CONC 32 g/dL (31-37); MEAN CORPUSCULAR VOLUME 89 fL (79-100); MONO # 0.8 x10^3/uL (0.0-1.1); MONO % 4 % (0-9); NEUT % 93 % (31-73); PLATELET COUNT 439 x10^3/uL (140-400); RED BLOOD COUNT 2.64 x10^6/uL (3.50-5.40); WHITE BLOOD COUNT 19.3 x10^3/uL (4.0-11.0)
[2019-11-29 14:57] LABS: CALCIUM 7.4 mg/dL (8.5-10.1); CREATININE 2.2 mg/dL (0.6-1.0); GFR 23.7; POTASSIUM 5.2 mmol/L (3.5-5.1)
[2019-11-29 15:03] LABS: ALBUMIN 1.3 g/dL (3.4-5.0); ALBUMIN/GLOBULIN RATIO 0.4 (1.0-1.7); TOTAL BILIRUBIN 0.3 mg/dL (0.2-1.0); TOTAL PROTEIN 4.9 g/dL (6.4-8.2)
--- NOTE | 2019-11-29 17:01 | NUR ---
Patient tachypneic this morning & did not look well. Chest xray ordered. Dr. Lindquist notified. Later this afternoon around 1315 patient seemed to be in distress breathing at the rate of 52/min, BP was 73/37, HR 150, pupils dilated, febrile, diaphoretic. Dr. Lindquist & Dr. Hamilton notified. Orders received. Rapid response called. Patient is now rest comfortably in bed & seems to be doing better. Patient's significant other updated. Will continue to monitor.
--- NOTE | 2019-11-29 21:39 | NUR ---
Louis cath taken out on day shift. Placed new 16Fr Indwelling Louis Cath with 10ml balloon using sterile technique. Patient tolerated procedure well. Only 10 ml clear yellow urine out in louis tubing upon placing louis. IVF infusing as ordered. BP low normal with SBP 90s.
[2019-11-30] MEDS: HYDROcodone/APAP 5/325MG 1 TAB TABLET PO PRN ×3 (01:40→20:49)
[2019-11-30] MEDS: ALPRAZolam 0.5 MG TABLET PO PRN ×3 (01:55→20:48)
[2019-11-30] MEDS: IV RINGERS,LACTATED 1000ML 1,000 ML IV SCH ×3 (03:32→20:48)
[2019-11-30] MEDS: IPRATRPIUM/ALBUTEROL 0.5/2.5MG 3 ML NEBU. NEB SCH ×5 (03:39→19:32)
[2019-11-30 03:45] VITALS: BP 103/56
[2019-11-30 05:29] LABS: BASO % 0 % (0-3); EOS # 0.2 x10^3/uL (0.0-0.7); EOS % 1 % (0-3); HEMATOCRIT 23.7 % (36.0-47.0); HEMOGLOBIN 7.3 g/dL (12.0-15.5); LYMPH # 0.9 x10^3/uL (1.0-4.8); LYMPH % 7 % (24-48); MEAN CORPUSCULAR HEMOGLOBIN 28 pg (25-35); MEAN CORPUSCULAR HGB CONC 31 g/dL (31-37); MEAN CORPUSCULAR VOLUME 90 fL (79-100); MONO # 0.7 x10^3/uL (0.0-1.1); MONO % 5 % (0-9); NEUT % 87 % (31-73); PLATELET COUNT 397 x10^3/uL (140-400); RED BLOOD COUNT 2.64 x10^6/uL (3.50-5.40); RED CELL DISTRIBUTION WIDTH 19.6 % (11.5-14.5); WHITE BLOOD COUNT 13.8 x10^3/uL (4.0-11.0)
[2019-11-30] MEDS: INSULIN LISPRO 300 UNITS/3 ML VIAL. SQ SCH ×4 (06:00→17:43)
[2019-11-30 07:00] VITALS: BP 103/64
--- NOTE | 2019-11-30 07:52 | PDOC ---
Infectious Disease Note Subjective: Subjective Pt little more alert afebrile last 24 hrs c/o some abdo discomfort has liquid stool Vital Signs: Vital Signs Vital Signs Date Time Temp Pulse Resp B/P (MAP) Pulse Ox O2 Delivery O2 Flow Rate FiO2 11/30/19 03:45 97.8 122 28 103/56 (72) 100 Nasal Cannula 2.0 97.8 Physical Exam: PHYSICAL EXAM GENERAL: Resting in bed, NAD HEENT: Pupils equal, oral cavity dry. OC/Op - Dry NECK: Tracheostomy capped LUNGS: Diminished aeration bases, HEART: S1, S2, ABDOMEN: Less distended, mild- bowel sounds hypoactive, soft, GJ drain present, drainage bag in place with depedent drainage : Lind in place EXTREMITIES: Trace generalized edema, no cyanosis. Yeast in groin area SKIN: warm touch. No signs of rash. NEURO: - Alert and responsive RUE PICC site without signs of complications. PIV s clean EC fistula Medications: Inpatient Meds: Current Medications Medications (Trade) Dose Ordered Sig/Yvon Start Time Stop Time Status Last Admin Dose Admin Acetaminophen (Tylenol Supp) 650 mg PRN Q6HRS PRN 07/12/19 10:30 11/28/19 15:43 650 MG Acetaminophen (Tylenol) 650 mg PRN Q6HRS PRN 07/09/19 03:36 08/31/19 10:25 DC 08/04/19 19:56 650 MG Acetaminophen/ Hydrocodone Bitart (Lortab 5/325) 1 tab PRN Q4HRS PRN 11/10/19 16:00 11/30/19 01:40 1 TAB Acetylcysteine (Mucomyst 20% Resp Treatment) 600 mg RTBID 10/15/19 12:00 11/29/19 19:59 600 MG Albumin Human 500 ml @ 125 mls/hr PRN Q1HR PRN 10/18/19 15:45 11/21/19 09:52 DC Albuterol Sulfate (Ventolin Neb Soln) 2.5 mg 1X ONCE 07/05/19 22:30 07/05/19 22:31 DC 07/06/19 00:56 2.5 MG Albuterol/ Ipratropium (Duoneb) 3 ml Q4HRS 10/01/19 08:00 11/30/19 03:39 3 ML Alprazolam (Xanax) 0.5 mg PRN QID PRN 11/10/19 16:00 11/30/19 01:55 0.5 MG Alteplase, Recombinant (Cathflo For Central Catheter Clearance) 1 mg 1X ONCE 11/23/19 07:00 11/23/19 07:01 DC 11/23/19 09:30 1 MG Alteplase, Recombinant 4 mg/ Sodium Chloride 20 ml @ 20 mls/hr 1X ONCE 10/05/19 10:00 10/05/19 10:59 DC 10/05/19 10:09 20 MLS/HR Alteplase, Recombinant 5 mg/ Sodium Chloride 30 ml @ 30 mls/hr 1X PRN 11/23/19 06:45 UNV Amino Acids/ Glycerin/ Electrolytes 1,000 ml @ 80 mls/hr [id number] 11/13/19 10:15 11/20/19 07:07 DC 11/19/19 18:10 80 MLS/HR Artificial Tears (Artificial Tears) 1 drop PRN Q15MIN PRN 08/17/19 05:30 10/11/19 21:17 1 DROP Atenolol (Tenormin) 100 mg DAILY 07/05/19 09:00 07/04/19 20:08 DC Atropine Sulfate (ATROPINE 0.5mg SYRINGE) 0.5 mg PRN Q5MIN PRN 07/21/19 08:15 11/21/19 09:45 DC Barium Sulfate (Varibar Thin Liquid Apple) 148 gm 1X ONCE 09/13/19 11:45 09/13/19 11:49 DC Benzocaine (Hurricaine One) 1 spray 1X ONCE 07/08/19 14:30 07/08/19 14:31 DC 07/08/19 16:38 1 SPRAY Bisacodyl (Dulcolax Supp) 10 mg STK-MED ONCE 08/15/19 10:59 08/15/19 10:59 DC Bumetanide (Bumex) 2 mg DAILY 08/26/19 10:00 09/05/19 17:15 DC 09/05/19 08:07 2 MG Bupivacaine HCl/ Epinephrine Bitart (Sensorcain-Epi 0.5%-1:273143 Mpf) 30 ml STK-MED ONCE 10/18/19 08:34 10/18/19 08:35 DC Calcitonin [place] (Miacalcin) 400 unit BID 11/24/19 18:00 11/25/19 15:56 DC 11/24/19 18:18 400 UNIT Calcium Carbonate/ Glycine (Tums) 500 mg PRN AFTMEALHC PRN 07/06/19 17:45 08/31/19 10:25 DC Calcium Chloride 1000 mg/Sodium Chloride 110 ml @ 220 mls/hr 1X ONCE 07/05/19 22:30 07/05/19 22:59 DC 07/05/19 22:11 220 MLS/HR Calcium Chloride 3000 mg/Sodium Chloride 1,030 ml @ 50 mls/hr [id number] 07/07/19 08:00 07/09/19 15:23 DC 07/09/19 02:17 50 MLS/HR Calcium Gluconate (Calcium Gluconate) 2,000 mg 1X ONCE 07/07/19 02:15 07/07/19 02:16 DC 07/07/19 02:19 2,000 MG Calcium Gluconate 1000 mg/Sodium Chloride 110 ml @ 220 mls/hr 1X ONCE 07/06/19 03:30 07/06/19 03:59 DC 07/06/19 03:21 220 MLS/HR Calcium Gluconate 2000 mg/Sodium Chloride 120 ml @ 220 mls/hr 1X ONCE 07/06/19 07:30 07/06/19 08:02 DC 07/06/19 09:05 220 MLS/HR Cefepime HCl (Maxipime) 2 gm Q12HR 11/28/19 10:00 11/29/19 20:31 2 GM Ceftazidime/ Avibactam 2.5 gm/ Sodium Chloride 250 ml @ 125 mls/hr Q8HRS 11/10/19 08:00 11/23/19 08:20 DC 11/23/19 05:38 125 MLS/HR Cellulose (Surgicel Fibrillar 1x2) 1 each STK-MED ONCE 07/25/19 11:00 07/25/19 11:01 DC Cellulose (Surgicel Hemostat 2x14) 1 each STK-MED ONCE 08/15/19 10:58 08/15/19 10:59 DC Cellulose (Surgicel Hemostat 4x8) 1 each STK-MED ONCE 08/15/19 10:58 08/15/19 10:59 DC Chlorhexidine Gluconate (Peridex) 15 ml BID 10/01/19 09:00 10/01/19 07:58 DC Ciprofloxacin/ Dextrose 200 ml @ 200 mls/hr Q12HR 10/30/19 10:00 11/08/19 08:20 DC 11/07/19 21:02 200 MLS/HR Cyclobenzaprine HCl (Flexeril) 10 mg PRN Q6HRS PRN 08/18/19 10:45 11/26/19 20:50 10 MG Daptomycin 410 mg/ Sodium Chloride 50 ml @ 100 mls/hr Q24H 09/25/19 14:00 09/28/19 08:30 DC 09/27/19 13:33 100 MLS/HR Daptomycin 430 mg/ Sodium Chloride 50 ml @ 100 mls/hr Q24H 08/13/19 13:00 08/18/19 20:58 DC 08/18/19 13:00 100 MLS/HR Daptomycin 450 mg/ Sodium Chloride 50 ml @ 100 mls/hr Q24H 09/04/19 09:00 09/08/19 08:30 DC 09/07/19 09:25 100 MLS/HR Daptomycin 485 mg/ Sodium Chloride 50 ml @ 100 mls/hr Q24H 08/22/19 11:00 08/30/19 07:44 DC 08/29/19 13:10 100 MLS/HR Daptomycin 500 mg/ Sodium Chloride 50 ml @ 100 mls/hr Q24H 11/13/19 09:00 11/23/19 08:20 DC 11/22/19 09:20 100 MLS/HR Desflurane (Suprane) 90 ml STK-MED ONCE 10/18/19 10:18 10/18/19 10:19 DC Dexamethasone Sodium Phosphate (Decadron) 4 mg STK-MED ONCE 08/15/19 10:56 08/15/19 10:57 DC Dexmedetomidine HCl 400 mcg/ Sodium Chloride 100 ml @ 0 mls/hr CONT PRN 07/21/19 08:15 09/17/19 18:31 DC 09/17/19 12:57 8 MLS/HR Dextrose (Dextrose 50%-Water Syringe) 12.5 gm PRN Q15MIN PRN 07/04/19 09:30 Digoxin (Lanoxin) 125 mcg 1X ONCE 07/07/19 18:00 07/07/19 18:01 DC 07/07/19 17:10 125 MCG Diphenhydramine HCl (Benadryl) 25 mg 1X ONCE 11/03/19 19:00 11/03/19 19:01 DC 11/03/19 18:56 25 MG Duloxetine HCl (Cymbalta) 30 mg DAILY 08/28/19 14:00 08/31/19 10:25 DC 08/29/19 09:48 30 MG Enoxaparin Sodium (Lovenox 100mg Syringe) 100 mg Q12HR 08/09/19 21:00 UNV Enoxaparin Sodium (Lovenox 40mg Syringe) 40 mg Q24H 10/19/19 08:00 11/29/19 10:09 40 MG Ephedrine Sulfate (ePHEDrine PF IN SALINE SYRINGE) 50 mg STK-MED ONCE 10/18/19 14:45 10/18/19 14:45 DC Etomidate (Amidate) 8 mg 1X ONCE 07/11/19 08:30 07/11/19 08:31 DC 07/11/19 08:33 8 MG Fentanyl (Duragesic 12mcg/ Hr Patch) 1 patch Q3DAYS 10/28/19 09:00 11/27/19 09:09 1 PATCH Fentanyl (Duragesic 50mcg/ Hr Patch) 1 patch Q72H 09/22/19 21:00 10/01/19 12:00 DC 09/22/19 21:22 1 PATCH Fentanyl Citrate (Fentanyl 2ml Vial) 100 mcg STK-MED ONCE 11/22/19 15:03 11/22/19 15:03 DC Fentanyl Citrate (Fentanyl 5ml Vial) 250 mcg 1X ONCE 08/26/19 09:15 08/26/19 09:16 DC 08/26/19 09:30 50 MCG Flumazenil (Romazicon) 0.5 mg STK-MED ONCE 09/25/19 14:48 09/25/19 14:48 DC Fluoxetine HCl (PROzac) 20 mg QHS 09/22/19 21:00 11/29/19 20:47 20 MG Furosemide (Lasix) 40 mg [id number] 11/24/19 09:00 11/24/19 14:01 DC 11/24/19 13:51 40 MG Haloperidol Lactate (Haldol Inj) 3 mg 1X ONCE 08/22/19 14:30 08/22/19 14:31 DC 08/22/19 14:37 3 MG Heparin Sodium (Porcine) (Hep Lock Adult) 500 unit STK-MED ONCE 07/26/19 09:29 07/26/19 09:30 DC Heparin Sodium (Porcine) (Heparin Sodium) 5,000 unit Q12HR 08/15/19 21:00 08/25/19 09:59 DC 08/24/19 20:57 5,000 UNIT Heparin Sodium (Porcine) 1000 unit/Sodium Chloride 1,001 ml @ 1,001 mls/hr 1X ONCE 10/18/19 06:00 10/18/19 06:59 DC Hydromorphone HCl (Dilaudid Standard GLASS INSERTER) 12 mg STK-MED ONCE 08/19/19 15:50 08/30/19 11:24 DC Hydromorphone HCl (Dilaudid) 1 mg PRN Q4HRS PRN 08/22/19 19:00 09/05/19 17:10 DC 09/05/19 06:25 1 MG Info (CONTRAST GIVEN -- Rx MONITORING) 1 each PRN DAILY PRN 11/08/19 11:45 11/10/19 11:44 DC Info (Icu Electrolyte Protocol) 1 ea CONT PRN PRN 07/17/19 13:15 Info (PHARMACY MONITORING -- do not chart) 1 each PRN DAILY PRN 08/12/19 15:45 09/13/19 14:14 DC Info (Tpn Per Pharmacy) 1 each PRN DAILY PRN 07/06/19 12:30 UNV Insulin Human Lispro (HumaLOG) 0-9 UNITS Q6HRS 07/04/19 09:30 11/28/19 19:01 3 UNITS Insulin Human Regular (HumuLIN R VIAL) 5 unit 1X ONCE 07/05/19 22:30 07/05/19 22:31 DC 07/05/19 22:14 5 UNIT Iohexol (Omnipaque 240 Mg/ml) 10 ml 1X ONCE 11/22/19 15:45 11/22/19 15:46 DC 11/22/19 15:00 10 ML Iohexol (Omnipaque 300 Mg/ml) 50 ml 1X ONCE 11/15/19 11:00 11/15/19 11:01 DC Iohexol (Omnipaque 350 Mg/ml) 90 ml 1X ONCE 07/04/19 03:30 07/04/19 03:31 DC 07/04/19 03:25 90 ML Ketorolac Tromethamine (Toradol 30mg Vial) 30 mg 1X ONCE 07/04/19 03:00 07/04/19 03:01 DC 07/04/19 02:54 30 MG Lidocaine HCl (Buffered Lidocaine 1%) 5 ml 1X ONCE 11/22/19 15:45 11/22/19 15:46 DC 11/22/19 15:00 5 ML Lidocaine HCl (Glydo (Lidocaine) Jelly) 1 ramu 1X ONCE 07/08/19 14:30 07/08/19 14:31 DC 07/08/19 16:38 1 RAMU Lidocaine HCl (Lidocaine 1% 20ml Vial) 20 ml 1X ONCE 09/25/19 15:00 09/25/19 15:01 DC 09/25/19 15:30 20 ML Lidocaine HCl (Lidocaine Pf 2% Vial) 5 ml STK-MED ONCE 10/18/19 07:44 10/18/19 07:44 DC Lidocaine HCl (Xylocaine-Mpf 1% 2ml Vial) 2 ml PRN 1X PRN 08/15/19 07:00 08/16/19 06:59 DC Linezolid/Dextrose 300 ml @ 300 mls/hr Q12HR 09/04/19 09:00 09/07/19 08:11 DC 09/06/19 21:08 300 MLS/HR Lorazepam (Ativan Inj) 0.25 mg PRN Q4HRS PRN 09/21/19 07:30 11/29/19 09:54 0.25 MG Magnesium Sulfate 50 ml @ 25 mls/hr 1X ONCE 10/18/19 16:30 10/18/19 18:29 DC 10/18/19 17:02 25 MLS/HR Meropenem 1 gm/ Sodium Chloride 100 ml @ 200 mls/hr Q12HR 09/25/19 21:00 10/13/19 08:56 DC 10/13/19 08:27 200 MLS/HR Meropenem 500 mg/ Sodium Chloride 50 ml @ 100 mls/hr Q6HRS 10/16/19 18:00 11/08/19 08:23 DC 11/08/19 06:15 100 MLS/HR Methylprednisolone Sodium Succinate (SOLU-Medrol 125MG VIAL) 125 mg 1X ONCE 10/01/19 06:15 10/01/19 06:16 DC 10/01/19 06:26 125 MG Metoclopramide HCl (Reglan Vial) 10 mg PRN Q3HRS PRN 08/27/19 16:45 09/01/19 04:25 10 MG Metoprolol Tartrate (Lopressor Vial) 5 mg 1X ONCE 11/27/19 10:45 11/27/19 10:46 DC 11/27/19 10:54 5 MG Metronidazole 100 ml @ 100 mls/hr Q12HR 11/28/19 10:00 11/29/19 20:38 100 MLS/HR Micafungin Sodium 100 mg/Dextrose 100 ml @ 100 mls/hr Q24H 10/18/19 08:30 11/23/19 08:20 DC 11/22/19 09:30 100 MLS/HR Midazolam HCl (Versed) 2 mg 1X ONCE 09/25/19 15:00 09/25/19 15:01 DC 09/25/19 15:28 1 MG Midazolam HCl 100 mg/Sodium Chloride 100 ml @ 1 mls/hr CONT PRN 10/18/19 14:45 11/21/19 09:45 DC 10/21/19 18:48 10 MLS/HR Midazolam HCl 50 mg/Sodium Chloride 50 ml @ 0 mls/hr CONT PRN 07/11/19 08:15 07/16/19 15:59 DC 07/14/19 22:39 7 MLS/HR Morphine Sulfate (Morphine Sulfate) 1 mg PRN Q1HR PRN 10/18/19 14:45 11/21/19 09:45 DC 11/12/19 18:28 1 MG Multi-Ingred Cream/Lotion/Oil/ Oint (Artificial Tears Eye Ointment) 1 ramu PRN Q1HR PRN 07/13/19 17:30 09/21/19 14:39 DC 08/01/19 08:19 1 RAMU Multivitamins/ Minerals Therapeutic (Centrum Multivit-Mineral Liq) 5 ml DAILY 11/23/19 09:00 11/29/19 10:08 5 ML Naloxone HCl (Narcan) 0.4 mg PRN Q2MIN PRN 10/18/19 14:45 11/21/19 09:45 DC Norepinephrine Bitartrate 8 mg/ Dextrose 258 ml @ 13.332 mls/ hr CONT PRN 09/25/19 06:30 11/21/19 09:45 DC 10/20/19 09:09 1.6 MLS/HR Ondansetron HCl (Zofran) 4 mg STK-MED ONCE 10/18/19 13:33 10/18/19 13:33 DC Pantoprazole Sodium (PROTONIX VIAL for IV PUSH) 40 mg DAILYAC 07/04/19 11:30 11/29/19 09:42 40 MG Phenylephrine HCl (Brayden-Synephrine Inj) 10 mg STK-MED ONCE 10/18/19 13:33 10/18/19 13:33 DC Phenylephrine HCl (PHENYLEPHRINE in 0.9% NACL PF) 1 mg STK-MED ONCE 10/18/19 14:44 10/18/19 14:45 DC Piperacillin Sod/ Tazobactam Sod 3.375 gm/Sodium Chloride 50 ml @ 100 mls/hr Q6HRS 09/14/19 12:00 09/22/19 07:26 DC 09/22/19 06:10 100 MLS/HR Piperacillin Sod/ Tazobactam Sod 4.5 gm/Sodium Chloride 100 ml @ 200 mls/hr 1X ONCE 07/04/19 06:00 07/04/19 06:29 DC 07/04/19 05:44 200 MLS/HR Potassium Chloride 110 meq/ Magnesium Sulfate 20 meq/ Multivitamins 10 ml/Chromium/ Copper/Manganese/ Seleni/Zn 1 ml/ Insulin Human Regular 15 unit/ Total Parenteral Nutrition/Amino Acids/Dextrose/ Fat Emulsion Intravenous 1,800 ml @ 75 mls/hr TPN CONT 09/11/19 22:00 09/12/19 21:59 DC 09/11/19 22:48 75 MLS/HR Potassium Chloride 15 meq/ Bicarbonate Dialysis Soln w/ out KCl 5,007.5 ml @ 1,000 mls/ hr Q5H1M 07/17/19 20:00 07/21/19 13:08 DC 07/20/19 18:14 1,000 MLS/HR Potassium Chloride 20 meq/ Bicarbonate Dialysis Soln w/ out KCl 5,010 ml @ 1,000 mls/hr Q5H1M 07/13/19 16:00 07/17/19 19:59 DC 07/17/19 14:54 1,000 MLS/HR Potassium Chloride 40 meq/ Potassium Acetate 60 meq/Magnesium Sulfate 10 meq/ Multivitamins 10 ml/Chromium/ Copper/Manganese/ Seleni/Zn 1 ml/ Insulin Human Regular 20 unit/ Total Parenteral Nutrition/Amino Acids/Dextrose/ Fat Emulsion Intravenous 1,800 ml @ 75 mls/hr TPN CONT 09/22/19 22:00 09/23/19 21:59 DC 09/23/19 00:03 75 MLS/HR Potassium Chloride 70 meq/ Magnesium Sulfate 20 meq/ Multivitamins 10 ml/Chromium/ Copper/Manganese/ Seleni/Zn 1 ml/ Insulin Human Regular 15 unit/ Total Parenteral Nutrition/Amino Acids/Dextrose/ Fat Emulsion Intravenous 1,800 ml @ 75 mls/hr TPN CONT 09/16/19 22:00 09/17/19 21:59 DC 09/16/19 23:13 75 MLS/HR Potassium Chloride 75 meq/ Magnesium Sulfate 15 meq/ Multivitamins 10 ml/Chromium/ Copper/Manganese/ Seleni/Zn 0.5 ml/ Insulin Human Regular 15 unit/ Total Parenteral Nutrition/Amino Acids/Dextrose/ Fat Emulsion Intravenous 1,920 ml @ 80 mls/hr TPN CONT 08/27/19 22:00 08/28/19 21:59 DC 08/27/19 22:41 80 MLS/HR Potassium Chloride 75 meq/ Magnesium Sulfate 15 meq/Calcium Gluconate 8 meq/ Multivitamins 10 ml/Chromium/ Copper/Manganese/ Seleni/Zn 0.5 ml/ Insulin Human Regular 15 unit/ Total Parenteral Nutrition/Amino Acids/Dextrose/ Fat Emulsion Intravenous 1,920 ml @ 80 mls/hr TPN CONT 08/25/19 22:00 08/26/19 21:59 DC 08/25/19 22:28 80 MLS/HR Potassium Chloride 75 meq/ Magnesium Sulfate 15 meq/Calcium Gluconate 8 meq/ Multivitamins 10 ml/Chromium/ Copper/Manganese/ Seleni/Zn 0.5 ml/ Insulin Human Regular 20 unit/ Total Parenteral Nutrition/Amino Acids/Dextrose/ Fat Emulsion Intravenous 1,920 ml @ 80 mls/hr TPN CONT 08/24/19 22:00 08/25/19 21:59 DC 08/24/19 22:00 80 MLS/HR Potassium Chloride 75 meq/ Magnesium Sulfate 15 meq/Calcium Gluconate 8 meq/ Multivitamins 10 ml/Chromium/ Copper/Manganese/ Seleni/Zn 0.5 ml/ Insulin Human Regular 25 unit/ Total Parenteral Nutrition/Amino Acids/Dextrose/ Fat Emulsion Intravenous 1,920 ml @ 80 mls/hr TPN CONT 08/22/19 22:00 08/23/19 21:59 DC 08/22/19 23:08 80 MLS/HR Potassium Chloride 75 meq/ Magnesium Sulfate 20 meq/Calcium Gluconate 10 meq/ Multivitamins 10 ml/Chromium/ Copper/Manganese/ Seleni/Zn 0.5 ml/ Insulin Human Regular 25 unit/ Total Parenteral Nutrition/Amino Acids/Dextrose/ Fat Emulsion Intravenous 1,920 ml @ 80 mls/hr TPN CONT 08/21/19 22:00 08/22/19 21:59 DC 08/21/19 22:04 80 MLS/HR Potassium Chloride 75 meq/ Magnesium Sulfate 20 meq/Calcium Gluconate 10 meq/ Multivitamins 10 ml/Chromium/ Copper/Manganese/ Seleni/Zn 0.5 ml/ Insulin Human Regular 30 unit/ Total Parenteral Nutrition/Amino Acids/Dextrose/ Fat Emulsion Intravenous 1,920 ml @ 80 mls/hr TPN CONT 08/20/19 22:00 08/21/19 22:00 DC 08/20/19 21:51 80 MLS/HR Potassium Chloride 80 meq/ Magnesium Sulfate 20 meq/ Multivitamins 10 ml/Chromium/ Copper/Manganese/ Seleni/Zn 0.5 ml/ Insulin Human Regular 15 unit/ Total Parenteral Nutrition/Amino Acids/Dextrose/ Fat Emulsion Intravenous 1,920 ml @ 80 mls/hr TPN CONT 08/30/19 22:00 08/31/19 21:59 DC 08/30/19 21:40 80 MLS/HR Potassium Chloride 80 meq/ Magnesium Sulfate 20 meq/ Multivitamins 10 ml/Chromium/ Copper/Manganese/ Seleni/Zn 1 ml/ Insulin Human Regular 15 unit/ Total Parenteral Nutrition/Amino Acids/Dextrose/ Fat Emulsion Intravenous 1,800 ml @ 75 mls/hr TPN CONT 09/18/19 22:00 09/19/19 21:59 DC 09/18/19 21:54 75 MLS/HR Potassium Chloride 90 meq/ Magnesium Sulfate 20 meq/ Multivitamins 10 ml/Chromium/ Copper/Manganese/ Seleni/Zn 1 ml/ Insulin Human Regular 15 unit/ Total Parenteral Nutrition/Amino Acids/Dextrose/ Fat Emulsion Intravenous 1,800 ml @ 75 mls/hr TPN CONT 09/07/19 22:00 09/08/19 21:59 DC 09/07/19 22:28 75 MLS/HR Potassium Chloride 90 meq/ Magnesium Sulfate 20 meq/ Multivitamins 10 ml/Chromium/ Copper/Manganese/ Seleni/Zn 1 ml/ Insulin Human Regular 20 unit/ Total Parenteral Nutrition/Amino Acids/Dextrose/ Fat Emulsion Intravenous 1,800 ml @ 75 mls/hr TPN CONT 09/21/19 22:00 09/22/19 21:59 DC 09/21/19 23:13 75 MLS/HR Potassium Chloride/Water 100 ml @ 100 mls/hr Q1H 10/05/19 08:00 10/05/19 09:59 DC 10/05/19 09:12 100 MLS/HR Potassium Phosphate 20 mmol/ Sodium Chloride 106.6667 ml @ 51.667 m... 1X ONCE 07/13/19 13:00 07/13/19 15:03 DC 07/13/19 12:51 51.667 MLS/HR Potassium Acetate 30 meq/Magnesium Sulfate 14 meq/ Multivitamins 10 ml/Chromium/ Copper/Manganese/ Seleni/Zn 1 ml/ Insulin Human Regular 15 unit/ Sodium Chloride 20 meq/Potassium Chloride 30 meq/ Total Parenteral Nutrition/Amino Acids/Dextrose/ Fat Emulsion Intravenous 1,920 ml @ 80 mls/hr TPN CONT 10/11/19 22:00 10/12/19 21:59 DC 10/11/19 21:46 80 MLS/HR Potassium Acetate 30 meq/Magnesium Sulfate 20 meq/ Calcium Gluconate 10 meq/ Multivitamins 10 ml/Chromium/ Copper/Manganese/ Seleni/Zn 0.5 ml/ Insulin Human Regular 30 unit/ Potassium Chloride 30 meq/ Total Parenteral Nutrition/Amino Acids/Dextrose/ Fat Emulsion Intravenous 1,920 ml @ 80 mls/hr TPN CONT 08/19/19 22:00 08/20/19 21:59 DC 08/19/19 22:34 80 MLS/HR Potassium Acetate 40 meq/Magnesium Sulfate 10 meq/ Multivitamins 10 ml/Chromium/ Copper/Manganese/ Seleni/Zn 1 ml/ Insulin Human Regular 20 unit/ Total Parenteral Nutrition/Amino Acids/Dextrose/ Fat Emulsion Intravenous 1,920 ml @ 80 mls/hr TPN CONT 10/04/19 22:00 10/05/19 21:59 DC 10/04/19 21:32 80 MLS/HR Potassium Acetate 40 meq/Magnesium Sulfate 5 meq/ Multivitamins 10 ml/Chromium/ Copper/Manganese/ Seleni/Zn 1 ml/ Insulin Human Regular 30 unit/ Total Parenteral Nutrition/Amino Acids/Dextrose/ Fat Emulsion Intravenous 1,920 ml @ 80 mls/hr TPN CONT 10/03/19 22:00 10/04/19 19:34 DC 10/03/19 21:54 80 MLS/HR Potassium Acetate 55 meq/Magnesium Sulfate 20 meq/ Calcium Gluconate 10 meq/ Multivitamins 10 ml/Chromium/ Copper/Manganese/ Seleni/Zn 0.5 ml/ Insulin Human Regular 30 unit/ Total Parenteral Nutrition/Amino Acids/Dextrose/ Fat Emulsion Intravenous 1,920 ml @ 80 mls/hr TPN CONT 08/18/19 22:00 08/19/19 21:59 DC 08/19/19 01:00 80 MLS/HR Potassium Acetate 55 meq/Magnesium Sulfate 20 meq/ Calcium Gluconate 10 meq/ Multivitamins 10 ml/Chromium/ Copper/Manganese/ Seleni/Zn 0.5 ml/ Insulin Human Regular 35 unit/ Total Parenteral Nutrition/Amino Acids/Dextrose/ Fat Emulsion Intravenous 1,920 ml @ 80 mls/hr TPN CONT 08/16/19 22:00 08/17/19 21:59 DC 08/16/19 22:02 80 MLS/HR Potassium Acetate 60 meq/Magnesium Sulfate 10 meq/ Multivitamins 10 ml/Chromium/ Copper/Manganese/ Seleni/Zn 1 ml/ Insulin Human Regular 20 unit/ Total Parenteral Nutrition/Amino Acids/Dextrose/ Fat Emulsion Intravenous 1,920 ml @ 80 mls/hr TPN CONT 10/05/19 22:00 10/06/19 21:59 DC 10/05/19 21:55 80 MLS/HR Potassium Acetate 60 meq/Magnesium Sulfate 14 meq/ Multivitamins 10 ml/Chromium/ Copper/Manganese/ Seleni/Zn 1 ml/ Insulin Human Regular 15 unit/ Sodium Chloride 20 meq/Total Parenteral Nutrition/Amino Acids/Dextrose/ Fat Emulsion Intravenous 1,920 ml @ 80 mls/hr TPN CONT 10/10/19 22:00 10/11/19 21:59 DC 10/10/19 21:54 80 MLS/HR Potassium Acetate 60 meq/Magnesium Sulfate 14 meq/ Multivitamins 10 ml/Chromium/ Copper/Manganese/ Seleni/Zn 1 ml/ Insulin Human Regular 15 unit/ Total Parenteral Nutrition/Amino Acids/Dextrose/ Fat Emulsion Intravenous 1,920 ml @ 80 mls/hr TPN CONT 10/09/19 22:00 10/10/19 21:59 DC 10/09/19 22:22 80 MLS/HR Potassium Acetate 60 meq/Magnesium Sulfate 14 meq/ Multivitamins 10 ml/Chromium/ Copper/Manganese/ Seleni/Zn 1 ml/ Insulin Human Regular 20 unit/ Total Parenteral Nutrition/Amino Acids/Dextrose/ Fat Emulsion Intravenous 1,920 ml @ 80 mls/hr TPN CONT 10/06/19 22:00 10/07/19 21:59 DC 10/06/19 22:26 80 MLS/HR Potassium Acetate 60 meq/Magnesium Sulfate 5 meq/ Multivitamins 10 ml/Chromium/ Copper/Manganese/ Seleni/Zn 1 ml/ Insulin Human Regular 30 unit/ Total Parenteral Nutrition/Amino Acids/Dextrose/ Fat Emulsion Intravenous 1,920 ml @ 80 mls/hr TPN CONT 09/24/19 22:00 09/25/19 21:59 DC 09/24/19 21:54 80 MLS/HR Potassium Acetate 65 meq/Magnesium Sulfate 20 meq/ Calcium Gluconate 10 meq/ Multivitamins 10 ml/Chromium/ Copper/Manganese/ Seleni/Zn 0.5 ml/ Insulin Human Regular 30 unit/ Total Parenteral Nutrition/Amino Acids/Dextrose/ Fat Emulsion Intravenous 1,920 ml @ 80 mls/hr TPN CONT 08/17/19 22:00 08/18/19 21:59 DC 08/17/19 22:22 80 MLS/HR Potassium Acetate 80 meq/Magnesium Sulfate 5 meq/ Multivitamins 10 ml/Chromium/ Copper/Manganese/ Seleni/Zn 1 ml/ Insulin Human Regular 20 unit/ Total Parenteral Nutrition/Amino Acids/Dextrose/ Fat Emulsion Intravenous 1,920 ml @ 80 mls/hr TPN CONT 09/23/19 22:00 09/24/19 21:59 DC 09/23/19 21:59 80 MLS/HR Prochlorperazine Edisylate (Compazine) 5 mg PACU PRN PRN 08/15/19 07:00 08/16/19 06:59 DC Propofol (Diprivan) 200 mg STK-MED ONCE 10/18/19 07:44 10/18/19 07:44 DC Ringer's Solution 1,000 ml @ 150 mls/hr [id number] 11/29/19 14:30 11/30/19 03:32 150 MLS/HR Rocuronium [place] (Zemuron) 100 mg STK-MED ONCE 10/18/19 07:44 10/18/19 07:44 DC Saliva Substitute (Biotene Moisturizing Mouth) 2 spray PRN Q15MIN PRN 09/08/19 11:00 Sevoflurane (Ultane) 60 ml STK-MED ONCE 08/15/19 12:26 08/15/19 12:27 DC Sodium Bicarbonate 150 meq/Dextrose 1,150 ml @ 75 mls/hr 1X ONCE 10/18/19 16:30 10/19/19 07:49 DC 10/18/19 20:02 75 MLS/HR Sodium Bicarbonate 50 meq/Sodium Chloride 1,050 ml @ 75 mls/hr Q14H 07/06/19 07:30 07/11/19 10:28 DC 07/10/19 21:10 75 MLS/HR Sodium Acetate 50 meq/Potassium Acetate 55 meq/ Magnesium Sulfate 20 meq/Calcium Gluconate 10 meq/ Multivitamins 10 ml/Chromium/ Copper/Manganese/ Seleni/Zn 0.5 ml/ Insulin Human Regular 35 unit/ Total Parenteral Nutrition/Amino Acids/Dextrose/ Fat Emulsion Intravenous 1,800 ml @ 75 mls/hr TPN CONT 08/13/19 22:00 08/14/19 21:59 DC 08/13/19 22:03 75 MLS/HR Sodium Bicarbonate (Sodium Bicarb Adult 8.4% Syr) 50 meq STK-MED ONCE 11/29/19 14:30 11/29/19 14:30 DC Sodium Chloride 1,000 ml @ 1,000 mls/hr 1X ONCE 11/29/19 14:00 11/29/19 14:59 DC 11/29/19 14:00 1,000 MLS/HR Sodium Chloride (Normal Saline Flush) 3 ml QSHIFT PRN 10/18/19 14:45 11/21/19 09:45 DC Sodium Chloride 80 meq/Potassium Chloride 30 meq/ Potassium Acetate 30 meq/Magnesium Sulfate 14 meq/ Multivitamins 10 ml/Chromium/ Copper/Manganese/ Seleni/Zn 1 ml/ Insulin Human Regular 15 unit/ Total Parenteral Nutrition/Amino Acids/Dextrose/ Fat Emulsion Intravenous 1,920 ml @ 80 mls/hr TPN CONT 10/19/19 22:00 10/20/19 21:59 DC 10/19/19 23:05 80 MLS/HR Sodium Chloride 90 meq/Calcium Gluconate 10 meq/ Multivitamins 10 ml/Chromium/ Copper/Manganese/ Seleni/Zn 0.5 ml/ Total Parenteral Nutrition/Amino Acids/Dextrose/ Fat Emulsion Intravenous 1,512 ml @ 63 mls/hr TPN CONT 07/06/19 22:00 07/07/19 21:59 DC 07/06/19 22:06 63 MLS/HR Sodium Chloride 90 meq/Calcium Gluconate 10 meq/ Multivitamins 10 ml/Chromium/ Copper/Manganese/ Seleni/Zn 1 ml/ Total Parenteral Nutrition/Amino Acids/Dextrose/ Fat Emulsion Intravenous 55.005 ml @ 2.292 mls/hr TPN CONT 07/06/19 22:00 07/06/19 12:33 DC Sodium Chloride 90 meq/Magnesium Sulfate 10 meq/ Calcium Gluconate 20 meq/ Multivitamins 10 ml/Chromium/ Copper/Manganese/ Seleni/Zn 0.5 ml/ Total Parenteral Nutrition/Amino Acids/Dextrose/ Fat Emulsion Intravenous 1,512 ml @ 63 mls/hr TPN CONT 07/07/19 22:00 07/08/19 21:59 DC 07/07/19 22:25 63 MLS/HR Sodium Chloride 90 meq/Magnesium Sulfate 12 meq/ Calcium Gluconate 15 meq/ Multivitamins 10 ml/Chromium/ Copper/Manganese/ Seleni/Zn 0.5 ml/ Insulin Human Regular 25 unit/ Total Parenteral Nutrition/Amino Acids/Dextrose/ Fat Emulsion Intravenous 1,400 ml @ 58.333 mls/ hr TPN CONT 07/27/19 22:00 07/28/19 21:59 DC 07/27/19 21:41 58.333 MLS/HR Sodium Chloride 90 meq/Potassium Chloride 15 meq/ Magnesium Sulfate 12 meq/Calcium Gluconate 15 meq/ Multivitamins 10 ml/Chromium/ Copper/Manganese/ Seleni/Zn 0.5 ml/ Insulin Human Regular 25 unit/ Total Parenteral Nutrition/Amino Acids/Dextrose/ Fat Emulsion Intravenous 1,400 ml @ 58.333 mls/ hr TPN CONT 07/26/19 22:00 07/27/19 21:59 DC 07/26/19 22:13 58.333 MLS/HR Sodium Chloride 90 meq/Potassium Chloride 15 meq/ Potassium Phosphate 10 mmol/ Magnesium Sulfate 8 meq/Calcium Gluconate 15 meq/ Multivitamins 10 ml/Chromium/ Copper/Manganese/ Seleni/Zn 0.5 ml/ Insulin Human Regular 25 unit/ Total Parenteral Nutrition/Amino Acids/Dextrose/ Fat Emulsion Intravenous 1,400 ml @ 58.333 mls/ hr TPN CONT 07/24/19 22:00 07/25/19 21:59 DC 07/24/19 21:20 58.333 MLS/HR Sodium Chloride 90 meq/Potassium Chloride 15 meq/ Potassium Phosphate 10 mmol/ Magnesium Sulfate 10 meq/Calcium Gluconate 20 meq/ Multivitamins 10 ml/Chromium/ Copper/Manganese/ Seleni/Zn 0.5 ml/ Total Parenteral Nutrition/Amino Acids/Dextrose/ Fat Emulsion Intravenous 1,400 ml @ 58.333 mls/ hr TPN CONT 07/11/19 22:00 07/12/19 21:59 DC 07/11/19 21:42 58.333 MLS/HR Sodium Chloride 90 meq/Potassium Chloride 15 meq/ Potassium Phosphate 10 mmol/ Magnesium Sulfate 12 meq/Calcium Gluconate 15 meq/ Multivitamins 10 ml/Chromium/ Copper/Manganese/ Seleni/Zn 0.5 ml/ Insulin Human Regular 25 unit/ Total Parenteral Nutrition/Amino Acids/Dextrose/ Fat Emulsion Intravenous 1,400 ml @ 58.333 mls/ hr TPN CONT 07/25/19 22:00 07/26/19 21:59 DC 07/25/19 22:24 58.333 MLS/HR Sodium Chloride 90 meq/Potassium Chloride 15 meq/ Potassium Phosphate 15 mmol/ Magnesium Sulfate 10 meq/Calcium Gluconate 15 meq/ Multivitamins 10 ml/Chromium/ Copper/Manganese/ Seleni/Zn 0.5 ml/ Total Parenteral Nutrition/Amino Acids/Dextrose/ Fat Emulsion Intravenous 1,400 ml @ 58.333 mls/ hr TPN CONT 07/12/19 22:00 07/13/19 21:59 DC 07/12/19 22:17 58.333 MLS/HR Sodium Chloride 90 meq/Potassium Chloride 15 meq/ Potassium Phosphate 15 mmol/ Magnesium Sulfate 10 meq/Calcium Gluconate 20 meq/ Multivitamins 10 ml/Chromium/ Copper/Manganese/ Seleni/Zn 0.5 ml/ Total Parenteral Nutrition/Amino Acids/Dextrose/ Fat Emulsion Intravenous 1,200 ml @ 50 mls/hr TPN CONT 07/10/19 22:00 07/10/19 14:17 DC Sodium Chloride 90 meq/Potassium Chloride 15 meq/ Potassium Phosphate 18 mmol/ Magnesium Sulfate 8 meq/Calcium Gluconate 15 meq/ Multivitamins 10 ml/Chromium/ Copper/Manganese/ Seleni/Zn 0.5 ml/ Insulin Human Regular 10 unit/ Total Parenteral Nutrition/Amino Acids/Dextrose/ Fat Emulsion Intravenous 1,400 ml @ 58.333 mls/ hr TPN CONT 07/15/19 22:00 07/16/19 21:59 DC 07/15/19 21:43 58.333 MLS/HR Sodium Chloride 90 meq/Potassium Chloride 15 meq/ Potassium Phosphate 18 mmol/ Magnesium Sulfate 8 meq/Calcium Gluconate 15 meq/ Multivitamins 10 ml/Chromium/ Copper/Manganese/ Seleni/Zn 0.5 ml/ Insulin Human Regular 15 unit/ Total Parenteral Nutrition/Amino Acids/Dextrose/ Fat Emulsion Intravenous 1,400 ml @ 58.333 mls/ hr TPN CONT 07/18/19 22:00 07/19/19 21:59 DC 07/18/19 21:47 58.333 MLS/HR Sodium Chloride 90 meq/Potassium Chloride 15 meq/ Potassium Phosphate 18 mmol/ Magnesium Sulfate 8 meq/Calcium Gluconate 15 meq/ Multivitamins 10 ml/Chromium/ Copper/Manganese/ Seleni/Zn 0.5 ml/ Insulin Human Regular 20 unit/ Total Parenteral Nutrition/Amino Acids/Dextrose/ Fat Emulsion Intravenous 1,400 ml @ 58.333 mls/ hr TPN CONT 07/21/19 22:00 07/22/19 21:59 DC 07/21/19 22:45 58.333 MLS/HR Sodium Chloride 90 meq/Potassium Chloride 15 meq/ Potassium Phosphate 18 mmol/ Magnesium Sulfate 8 meq/Calcium Gluconate 15 meq/ Multivitamins 10 ml/Chromium/ Copper/Manganese/ Seleni/Zn 0.5 ml/ Total Parenteral Nutrition/Amino Acids/Dextrose/ Fat Emulsion Intravenous 1,400 ml @ 58.333 mls/ hr TPN CONT 07/14/19 22:00 07/15/19 21:59 DC 07/14/19 22:00 58.333 MLS/HR Sodium Chloride 90 meq/Potassium Chloride 30 meq/ Potassium Acetate 30 meq/Magnesium Sulfate 15 meq/ Multivitamins 10 ml/Chromium/ Copper/Manganese/ Seleni/Zn 1 ml/ Insulin Human Regular 15 unit/ Total Parenteral Nutrition/Amino Acids/Dextrose/ Fat Emulsion Intravenous 1,680 ml @ 70 mls/hr TPN CONT 11/03/19 22:00 11/04/19 21:59 DC 11/03/19 22:06 70 MLS/HR Sodium Chloride 90 meq/Potassium Phosphate 15 mmol/ Magnesium Sulfate 12 meq/Calcium Gluconate 15 meq/ Multivitamins 10 ml/Chromium/ Copper/Manganese/ Seleni/Zn 0.5 ml/ Insulin Human Regular 30 unit/ Total Parenteral Nutrition/Amino Acids/Dextrose/ Fat Emulsion Intravenous 1,400 ml @ 58.333 mls/ hr TPN CONT 07/29/19 22:00 07/30/19 21:59 DC 07/29/19 21:49 58.333 MLS/HR Sodium Chloride 90 meq/Potassium Phosphate 15 mmol/ Magnesium Sulfate 12 meq/Calcium Gluconate 15 meq/ Multivitamins 10 ml/Chromium/ Copper/Manganese/ Seleni/Zn 0.5 ml/ Insulin Human Regular 40 unit/ Total Parenteral Nutrition/Amino Acids/Dextrose/ Fat Emulsion Intravenous 1,400 ml @ 58.333 mls/ hr TPN CONT 07/30/19 22:00 07/31/19 21:59 DC 07/30/19 21:21 58.333 MLS/HR Sodium Chloride 90 meq/Potassium Phosphate 19 mmol/ Magnesium Sulfate 12 meq/Calcium Gluconate 15 meq/ Multivitamins 10 ml/Chromium/ Copper/Manganese/ Seleni/Zn 0.5 ml/ Insulin Human Regular 40 unit/ Total Parenteral Nutrition/Amino Acids/Dextrose/ Fat Emulsion Intravenous 1,400 ml @ 58.333 mls/ hr TPN CONT 07/31/19 22:00 08/01/19 21:59 DC 07/31/19 21:54 58.333 MLS/HR Sodium Chloride 90 meq/Potassium Phosphate 5 mmol/ Magnesium Sulfate 12 meq/Calcium Gluconate 15 meq/ Multivitamins 10 ml/Chromium/ Copper/Manganese/ Seleni/Zn 0.5 ml/ Insulin Human Regular 30 unit/ Total Parenteral Nutrition/Amino Acids/Dextrose/ Fat Emulsion Intravenous 1,400 ml @ 58.333 mls/ hr TPN CONT 07/28/19 22:00 07/29/19 21:59 DC 07/28/19 22:08 58.333 MLS/HR Sodium Chloride 100 meq/Potassium Chloride 30 meq/ Potassium Acetate 30 meq/Magnesium Sulfate 12 meq/ Multivitamins 10 ml/Chromium/ Copper/Manganese/ Seleni/Zn 1 ml/ Insulin Human Regular 15 unit/ Total Parenteral Nutrition/Amino Acids/Dextrose/ Fat Emulsion Intravenous 1,680 ml @ 70 mls/hr TPN CONT 10/23/19 22:00 10/24/19 21:59 DC 10/23/19 21:23 70 MLS/HR Sodium Chloride 100 meq/Potassium Chloride 40 meq/ Magnesium Sulfate 15 meq/Calcium Gluconate 15 meq/ Multivitamins 10 ml/Chromium/ Copper/Manganese/ Seleni/Zn 0.5 ml/ Insulin Human Regular 35 unit/ Total Parenteral Nutrition/Amino Acids/Dextrose/ Fat Emulsion Intravenous 1,400 ml @ 58.333 mls/ hr TPN CONT 08/07/19 22:00 08/08/19 21:59 DC 08/07/19 22:46 58.333 MLS/HR Sodium Chloride 100 meq/Potassium Chloride 40 meq/ Magnesium Sulfate 20 meq/Calcium Gluconate 10 meq/ Multivitamins 10 ml/Chromium/ Copper/Manganese/ Seleni/Zn 0.5 ml/ Insulin Human Regular 35 unit/ Total Parenteral Nutrition/Amino Acids/Dextrose/ Fat Emulsion Intravenous 1,400 ml @ 58.333 mls/ hr TPN CONT 08/11/19 22:00 08/12/19 21:59 DC 08/12/19 00:06 58.333 MLS/HR Sodium Chloride 100 meq/Potassium Chloride 40 meq/ Magnesium Sulfate 20 meq/Calcium Gluconate 15 meq/ Multivitamins 10 ml/Chromium/ Copper/Manganese/ Seleni/Zn 0.5 ml/ Insulin Human Regular 35 unit/ Total Parenteral Nutrition/Amino Acids/Dextrose/ Fat Emulsion Intravenous 1,400 ml @ 58.333 mls/ hr TPN CONT 08/10/19 22:00 08/11/19 21:59 DC 08/10/19 22:27 58.333 MLS/HR Sodium Chloride 100 meq/Potassium Phosphate 10 mmol/ Magnesium Sulfate 12 meq/Calcium Gluconate 15 meq/ Multivitamins 10 ml/Chromium/ Copper/Manganese/ Seleni/Zn 0.5 ml/ Insulin Human Regular 35 unit/ Potassium Chloride 20 meq/ Total Parenteral Nutrition/Amino Acids/Dextrose/ Fat Emulsion Intravenous 1,400 ml @ 58.333 mls/ hr TPN CONT 08/04/19 22:00 08/05/19 21:59 DC 08/04/19 22:10 58.333 MLS/HR Sodium Chloride 100 meq/Potassium Phosphate 19 mmol/ Magnesium Sulfate 12 meq/Calcium Gluconate 15 meq/ Multivitamins 10 ml/Chromium/ Copper/Manganese/ Seleni/Zn 0.5 ml/ Insulin Human Regular 40 unit/ Potassium Chloride 20 meq/ Total Parenteral Nutrition/Amino Acids/Dextrose/ Fat Emulsion Intravenous 1,400 ml @ 58.333 mls/ hr TPN CONT 08/03/19 22:00 08/04/19 21:59 DC 08/03/19 21:20 58.333 MLS/HR Sodium Chloride 100 meq/Potassium Phosphate 5 mmol/ Magnesium Sulfate 12 meq/Calcium Gluconate 15 meq/ Multivitamins 10 ml/Chromium/ Copper/Manganese/ Seleni/Zn 0.5 ml/ Insulin Human Regular 35 unit/ Potassium Chloride 20 meq/ Total Parenteral Nutrition/Amino Acids/Dextrose/ Fat Emulsion Intravenous 1,400 ml @ 58.333 mls/ hr TPN CONT 08/05/19 22:00 08/06/19 21:59 DC 08/05/19 22:59 58.333 MLS/HR Sodium Chloride 110 meq/Potassium Chloride 30 meq/ Potassium Acetate 30 meq/Magnesium Sulfate 15 meq/ Multivitamins 10 ml/Chromium/ Copper/Manganese/ Seleni/Zn 1 ml/ Insulin Human Regular 15 unit/ Total Parenteral Nutrition/Amino Acids/Dextrose/ Fat Emulsion Intravenous 1,680 ml @ 70 mls/hr TPN CONT 11/05/19 22:00 11/06/19 21:59 DC 11/05/19 22:01 70 MLS/HR Sodium Chloride 110 meq/Sodium Phosphate 10 mmol/ Potassium Chloride 30 meq/ Potassium Acetate 30 meq/Magnesium Sulfate 15 meq/ Multivitamins 10 ml/Chromium/ Copper/Manganese/ Seleni/Zn 1 ml/ Insulin Human Regular 15 unit/ Total Parenteral Nutrition/Amino Acids/Dextrose/ Fat Emulsion Intravenous 1,680 ml @ 70 mls/hr TPN CONT 11/06/19 22:00 11/07/19 21:59 DC 11/06/19 22:03 70 MLS/HR Sodium Chloride 120 meq/Sodium Phosphate 10 mmol/ Potassium Chloride 30 meq/ Potassium Acetate 30 meq/Magnesium Sulfate 15 meq/ Multivitamins 10 ml/Chromium/ Copper/Manganese/ Seleni/Zn 1 ml/ Insulin Human Regular 15 unit/ Total Parenteral Nutrition/Amino Acids/Dextrose/ Fat Emulsion Intravenous 1,680 ml @ 70 mls/hr TPN CONT 11/13/19 22:00 11/14/19 21:59 Cancel Succinylcholine Chloride (Anectine) 120 mg 1X ONCE 07/11/19 08:30 07/11/19 08:31 DC 07/11/19 08:34 120 MG Vancomycin HCl (Vanco Per Pharmacy) 1 each PRN DAILY PRN 10/30/19 09:15 11/02/19 07:41 DC 11/01/19 02:46 1 EACH Vancomycin HCl (Vancomycin Random Level) 1 each 1X ONCE 11/01/19 01:00 11/01/19 01:01 DC 11/01/19 01:00 1 EACH Vancomycin HCl (Vancomycin Trough Level) 1 each 1X ONCE 11/02/19 09:30 11/02/19 09:31 Cancel Vancomycin HCl 1.5 gm/Sodium Chloride 500 ml @ 250 mls/hr Q12H 11/01/19 10:00 11/02/19 07:41 DC 11/01/19 22:07 250 MLS/HR Vancomycin HCl 2 gm/Sodium Chloride 500 ml @ 250 mls/hr 1X ONCE 10/30/19 10:00 10/30/19 11:59 DC 10/30/19 10:34 250 MLS/HR Vasopressin (Vasostrict) 20 unit STK-MED ONCE 10/18/19 12:23 10/18/19 12:23 DC Vasopressin 20 unit/Dextrose 101 ml @ 12 mls/hr CONT PRN 10/18/19 15:30 11/21/19 09:45 DC 10/25/19 04:17 12 MLS/HR Vecuronium [place] (Norcuron Bolus) 6 mg PRN Q6HRS PRN 08/25/19 19:15 08/25/19 19:35 DC Vitamin A/Vitamin D (Vitamin A & D Ointment) 1 ramu PRN Q1HR PRN 11/22/19 09:15 11/29/19 10:44 1 RAMU Zoledronic Acid 100 ml @ 400 mls/hr 1X ONCE 11/25/19 12:00 11/25/19 12:14 DC 11/25/19 13:04 400 MLS/HR Labs: Lab Laboratory Tests Test 11/29/19 12:20 11/29/19 13:42 11/29/19 14:30 11/29/19 18:09 Glucose (Fingerstick) 172 mg/dL (70-99) 194 mg/dL (70-99) O2 Saturation 98 % (92-99) Arterial Blood pH 7.29 (7.35-7.45) Arterial Blood pCO2 at Patient Temp 35 mmHg (35-46) Arterial Blood pO2 at Patient Temp 105 mmHg (75-108) Arterial Blood HCO3 17 mmol/L (21-28) Arterial Blood Base Excess -9 mmol/L (-3-3) FiO2 4l n.c. White Blood Count 19.3 x10^3/uL (4.0-11.0) Red Blood Count 2.64 x10^6/uL (3.50-5.40) Hemoglobin 7.4 g/dL (12.0-15.5) Hematocrit 23.4 % (36.0-47.0) Mean Corpuscular Volume 89 fL (79-100) Mean Corpuscular Hemoglobin 28 pg (25-35) Mean Corpuscular Hemoglobin Concent 32 g/dL (31-37) Red Cell Distribution Width 20.0 % (11.5-14.5) Platelet Count 439 x10^3/uL (140-400) Neutrophils (%) (Auto) 93 % (31-73) Lymphocytes (%) (Auto) 2 % (24-48) Monocytes (%) (Auto) 4 % (0-9) Eosinophils (%) (Auto) 0 % (0-3) Basophils (%) (Auto) 0 % (0-3) Neutrophils # (Auto) 18.0 x10^3/uL (1.8-7.7) Lymphocytes # (Auto) 0.4 x10^3/uL (1.0-4.8) Monocytes # (Auto) 0.8 x10^3/uL (0.0-1.1) Eosinophils # (Auto) 0.0 x10^3/uL (0.0-0.7) Basophils # (Auto) 0.0 x10^3/uL (0.0-0.2) Sodium Level 154 mmol/L (136-145) Potassium Level 5.2 mmol/L (3.5-5.1) Chloride Level 117 mmol/L (98-107) Carbon Dioxide Level 29 mmol/L (21-32) Anion Gap 8 (6-14) Blood Urea Nitrogen 69 mg/dL (7-20) Creatinine 2.2 mg/dL (0.6-1.0) Estimated GFR (Cockcroft-Gault) 23.7 BUN/Creatinine Ratio 31 (6-20) Glucose Level 219 mg/dL (70-99) Lactic Acid Level 3.3 mmol/L (0.4-2.0) Calcium Level 7.4 mg/dL (8.5-10.1) Total Bilirubin 0.3 mg/dL (0.2-1.0) Aspartate Amino Transf (AST/SGOT) 15 U/L (15-37) Alanine Aminotransferase (ALT/SGPT) 10 U/L (14-59) Alkaline Phosphatase 76 U/L (46-116) Total Protein 4.9 g/dL (6.4-8.2) Albumin 1.3 g/dL (3.4-5.0) Albumin/Globulin Ratio 0.4 (1.0-1.7) Test 11/29/19 21:30 11/30/19 00:38 11/30/19 05:15 11/30/19 07:19 Lactic Acid Level 2.8 mmol/L (0.4-2.0) Glucose (Fingerstick) 167 mg/dL (70-99) 166 mg/dL (70-99) White Blood Count 13.8 x10^3/uL (4.0-11.0) Red Blood Count 2.64 x10^6/uL (3.50-5.40) Hemoglobin 7.3 g/dL (12.0-15.5) Hematocrit 23.7 % (36.0-47.0) Mean Corpuscular Volume 90 fL (79-100) Mean Corpuscular Hemoglobin 28 pg (25-35) Mean Corpuscular Hemoglobin Concent 31 g/dL (31-37) Red Cell Distribution Width 19.6 % (11.5-14.5) Platelet Count 397 x10^3/uL (140-400) Neutrophils (%) (Auto) 87 % (31-73) Lymphocytes (%) (Auto) 7 % (24-48) Monocytes (%) (Auto) 5 % (0-9) Eosinophils (%) (Auto) 1 % (0-3) Basophils (%) (Auto) 0 % (0-3) Neutrophils # (Auto) 12.0 x10^3/uL (1.8-7.7) Lymphocytes # (Auto) 0.9 x10^3/uL (1.0-4.8) Monocytes # (Auto) 0.7 x10^3/uL (0.0-1.1) Eosinophils # (Auto) 0.2 x10^3/uL (0.0-0.7) Basophils # (Auto) 0.0 x10^3/uL (0.0-0.2) Micro NEG ALEXANDRA 56 PSEUDOMONAS AERUGINOSA ANTIBIOTIC RESULT INTERPRETATION AMIKACIN <=16 S AZTREONAM >16 R CEFTAZIDIME >16 R CIPROFLOXACIN <=0.25 S CEFEPIME 16 I GENTAMICIN <=2 S LEVOFLOXACIN <=0.5 S CONTINUED ON NEXT PAGE RUN DATE: 09/28/19 [facility] *LIVE* PAGE 2 RUN TIME: 1121 Specimen Inquiry SPEC: [id number] PATIENT: SCOTT CUELLAR [id number] (Continued) Procedure Result ANTIMICROBIAL SUSCEPTIBILITY Preliminary (continued) MEROPENEM <=1 S PIPERACILLIN/TAZOBACTAM 64 S TOBRAMYCIN <=2 S Unless otherwise specified, Testing Performed by: [address] [address] For Inquires, the Physician may contact the Microbiology department at [phone] - Objective: Assessment: Patient with prolonged hospitalization more than 4 months Multiple medical problems Multiple surgical procedures Intermittent fevers now improving S/P Exp. 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 parapsilosis & PSAE (I-merrem/ceftazidime/AZT/cefepime)) Leukocytosis - better Loose stool on tube feed - WBC down and no gross fever Anemia Acute gallstone pancreatitis with persistent necrosis - 07/27. CT A/P Increased ascites. 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 status post KAYLIN drain placement; C. parapsilosis. s/p drain 08/23 + yeast & high amylase; s/p additional drain on 08/25. Drains removed. -08/23. fluid devyn parapsilosis fluid, amylase high - 09/23 showed multiple pseudocysts, slight larger on the right. s/p drains x 3, 09/24. + PSAE (MDRO-R Cefepime, Zosyn ALEXANDRA < 64) and yeast, -09/24 s/p drain replacement x 3; fluid cult PSAE (MDRO), yeast; treated -10/29 CT A/P shows smaller fluid collections. -722 CT abdomen and pelvis drains in place Ascites s/p paracentesis 08/02 & 08/23. C. parapsilosis Cholelithiasis with thickening of the gallbladder wall. JUANA, Hyperkalemia, Metabolic acidosis off dialysis Acute hypoxic resp failure. trach/vent. 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
[2019-11-30] MEDS: ENOXAPARIN 40 MG/0.4 ML SYRINGE. SQ SCH (08:28)
[2019-11-30] MEDS: PANTOPRAZOLE IV PUSH 40 MG VIAL. IVP SCH (08:28)
[2019-11-30] MEDS: fentaNYL 12MCG/HR PATCH 1 PATCH PATCH.TD72 TD SCH (08:28)
[2019-11-30] MEDS: MULTIVITAMINS,THERAPEUTIC 5 ML ORAL LIQUID. PEG SCH (08:28)
[2019-11-30] MEDS: CEFEPIME HCL IV Push 2 GM VIAL. IVP SCH ×2 (08:29→20:49)
[2019-11-30] MEDS ORDERED: IV NORMAL SALINE 1000ML BAG 1,000 ML IV ONE ×2 (08:45→17:15)
[2019-11-30] MEDS: ACETYLCYSTEINE 20% for RESP TX 600 MG/3 ML. NEB SCH ×2 (08:46→19:32)
[2019-11-30 08:59] LABS: ALBUMIN 1.3 g/dL (3.4-5.0); ALBUMIN/GLOBULIN RATIO 0.4 (1.0-1.7); CALCIUM 7.4 mg/dL (8.5-10.1); CREATININE 2.1 mg/dL (0.6-1.0); POTASSIUM 4.6 mmol/L (3.5-5.1); TOTAL BILIRUBIN 0.2 mg/dL (0.2-1.0)
--- NOTE | 2019-11-30 09:39 | NUR ---
SW following. Discussed with RN, pt not ready for discharge, family dynamics and medical needs are preventing pt from discharging. SW will continue to follow.
--- NOTE | 2019-11-30 10:28 | PDOC ---
Date of Service: DATE: 11/30/19 TIME: 10:26 Objective: Objective: D/w nurse - no new GI issues, might be perkier today. Vital Signs: Vital Signs Date Time Temp Pulse Resp B/P (MAP) Pulse Ox O2 Delivery O2 Flow Rate FiO2 11/30/19 08:59 98 Room Air 11/30/19 08:28 2.0 11/30/19 07:00 97.6 119 28 103/64 (77) 97.6 Labs: Laboratory Tests Test 11/29/19 12:20 11/29/19 13:42 11/29/19 14:30 11/29/19 18:09 Glucose (Fingerstick) 172 mg/dL 194 mg/dL O2 Saturation 98 % Arterial Blood pH 7.29 Arterial Blood pCO2 at Patient Temp 35 mmHg Arterial Blood pO2 at Patient Temp 105 mmHg Arterial Blood HCO3 17 mmol/L Arterial Blood Base Excess -9 mmol/L FiO2 4l n.c. White Blood Count 19.3 x10^3/uL Red Blood Count 2.64 x10^6/uL Hemoglobin 7.4 g/dL Hematocrit 23.4 % Mean Corpuscular Volume 89 fL Mean Corpuscular Hemoglobin 28 pg Mean Corpuscular Hemoglobin Concent 32 g/dL Red Cell Distribution Width 20.0 % Platelet Count 439 x10^3/uL Neutrophils (%) (Auto) 93 % Lymphocytes (%) (Auto) 2 % Monocytes (%) (Auto) 4 % Eosinophils (%) (Auto) 0 % Basophils (%) (Auto) 0 % Neutrophils # (Auto) 18.0 x10^3/uL Lymphocytes # (Auto) 0.4 x10^3/uL Monocytes # (Auto) 0.8 x10^3/uL Eosinophils # (Auto) 0.0 x10^3/uL Basophils # (Auto) 0.0 x10^3/uL Sodium Level 154 mmol/L Potassium Level 5.2 mmol/L Chloride Level 117 mmol/L Carbon Dioxide Level 29 mmol/L Anion Gap 8 Blood Urea Nitrogen 69 mg/dL Creatinine 2.2 mg/dL Estimated GFR (Cockcroft-Gault) 23.7 BUN/Creatinine Ratio 31 Glucose Level 219 mg/dL Lactic Acid Level 3.3 mmol/L Calcium Level 7.4 mg/dL Total Bilirubin 0.3 mg/dL Aspartate Amino Transf (AST/SGOT) 15 U/L Alanine Aminotransferase (ALT/SGPT) 10 U/L Alkaline Phosphatase 76 U/L Total Protein 4.9 g/dL Albumin 1.3 g/dL Albumin/Globulin Ratio 0.4 Test 11/29/19 21:30 11/30/19 00:38 11/30/19 05:15 11/30/19 07:19 Lactic Acid Level 2.8 mmol/L Glucose (Fingerstick) 167 mg/dL 166 mg/dL White Blood Count 13.8 x10^3/uL Red Blood Count 2.64 x10^6/uL Hemoglobin 7.3 g/dL Hematocrit 23.7 % Mean Corpuscular Volume 90 fL Mean Corpuscular Hemoglobin 28 pg Mean Corpuscular Hemoglobin Concent 31 g/dL Red Cell Distribution Width 19.6 % Platelet Count 397 x10^3/uL Neutrophils (%) (Auto) 87 % Lymphocytes (%) (Auto) 7 % Monocytes (%) (Auto) 5 % Eosinophils (%) (Auto) 1 % Basophils (%) (Auto) 0 % Neutrophils # (Auto) 12.0 x10^3/uL Lymphocytes # (Auto) 0.9 x10^3/uL Monocytes # (Auto) 0.7 x10^3/uL Eosinophils # (Auto) 0.2 x10^3/uL Basophils # (Auto) 0.0 x10^3/uL Sodium Level 152 mmol/L Potassium Level 4.6 mmol/L Chloride Level 117 mmol/L Carbon Dioxide Level 26 mmol/L Anion Gap 9 Blood Urea Nitrogen 76 mg/dL Creatinine 2.1 mg/dL Estimated GFR (Cockcroft-Gault) 25.0 BUN/Creatinine Ratio 36 Glucose Level 171 mg/dL Calcium Level 7.4 mg/dL Total Bilirubin 0.2 mg/dL Aspartate Amino Transf (AST/SGOT) 20 U/L Alanine Aminotransferase (ALT/SGPT) 8 U/L Alkaline Phosphatase 86 U/L Total Protein 5.0 g/dL Albumin 1.3 g/dL Albumin/Globulin Ratio 0.4 BLOOD CULTURE Preliminary NO GROWTH AFTER 2 DAYS Imaging: CXR 11/28 IMPRESSION: 1. Stable life support devices. 2. Small bilateral pleural effusions and mild bibasilar airspace disease are unchanged. PE: GEN: chronically ill NEURO/PSYCH: resting, not disturbed A/P: S/p pancreatic necrosectomy -- Continue support. Justicifation of Admission Dx: Justifications for Admission: Justification of Admission Dx: Yes CYNDEE FALCON Nov 30, 2019 10:28
[2019-11-30 11:00] VITALS: BP 118/57
--- NOTE | 2019-11-30 11:08 | PDOC ---
PULMONARY PROGRESS NOTES DATE: 11/30/19 TIME: 11:03 Subjective had a rapid response yesterday had increase R/R , ABG ok. likely met acidosis, better today Vitals Vital Signs Date Time Temp Pulse Resp B/P (MAP) Pulse Ox O2 Delivery O2 Flow Rate FiO2 11/30/19 08:59 98 Room Air 11/30/19 08:28 2.0 11/30/19 07:00 97.6 119 28 103/64 (77) 97.6 ROS: No Nausea, No Chest Pain, No Abdominal Pain, No Increase Cough General: Alert, No acute distress Lungs: Clear Cardiovascular: S1, S2 Abdomen: Soft, Non-tender, Other (multiple KAYLIN drains ) Neuro Exam: Alert Extremities: Other (+1 BLE edema) Skin: Warm Labs Laboratory Tests Test 11/28/19 12:27 11/28/19 18:38 11/29/19 00:25 11/29/19 05:30 Glucose (Fingerstick) 171 mg/dL (70-99) 210 mg/dL (70-99) 185 mg/dL (70-99) Sodium Level 147 mmol/L (136-145) Potassium Level 5.9 mmol/L (3.5-5.1) Chloride Level 113 mmol/L (98-107) Carbon Dioxide Level 25 mmol/L (21-32) Anion Gap 9 (6-14) Blood Urea Nitrogen 61 mg/dL (7-20) Creatinine 1.8 mg/dL (0.6-1.0) Estimated GFR (Cockcroft-Gault) 29.9 Glucose Level 209 mg/dL (70-99) Calcium Level 8.2 mg/dL (8.5-10.1) Test 11/29/19 05:34 11/29/19 12:20 11/29/19 13:42 11/29/19 14:30 Glucose (Fingerstick) 190 mg/dL (70-99) 172 mg/dL (70-99) O2 Saturation 98 % (92-99) Arterial Blood pH 7.29 (7.35-7.45) Arterial Blood pCO2 at Patient Temp 35 mmHg (35-46) Arterial Blood pO2 at Patient Temp 105 mmHg (75-108) Arterial Blood HCO3 17 mmol/L (21-28) Arterial Blood Base Excess -9 mmol/L (-3-3) FiO2 4l n.c. White Blood Count 19.3 x10^3/uL (4.0-11.0) Red Blood Count 2.64 x10^6/uL (3.50-5.40) Hemoglobin 7.4 g/dL (12.0-15.5) Hematocrit 23.4 % (36.0-47.0) Mean Corpuscular Volume 89 fL (79-100) Mean Corpuscular Hemoglobin 28 pg (25-35) Mean Corpuscular Hemoglobin Concent 32 g/dL (31-37) Red Cell Distribution Width 20.0 % (11.5-14.5) Platelet Count 439 x10^3/uL (140-400) Neutrophils (%) (Auto) 93 % (31-73) Lymphocytes (%) (Auto) 2 % (24-48) Monocytes (%) (Auto) 4 % (0-9) Eosinophils (%) (Auto) 0 % (0-3) Basophils (%) (Auto) 0 % (0-3) Neutrophils # (Auto) 18.0 x10^3/uL (1.8-7.7) Lymphocytes # (Auto) 0.4 x10^3/uL (1.0-4.8) Monocytes # (Auto) 0.8 x10^3/uL (0.0-1.1) Eosinophils # (Auto) 0.0 x10^3/uL (0.0-0.7) Basophils # (Auto) 0.0 x10^3/uL (0.0-0.2) Sodium Level 154 mmol/L (136-145) Potassium Level 5.2 mmol/L (3.5-5.1) Chloride Level 117 mmol/L (98-107) Carbon Dioxide Level 29 mmol/L (21-32) Anion Gap 8 (6-14) Blood Urea Nitrogen 69 mg/dL (7-20) Creatinine 2.2 mg/dL (0.6-1.0) Estimated GFR (Cockcroft-Gault) 23.7 BUN/Creatinine Ratio 31 (6-20) Glucose Level 219 mg/dL (70-99) Lactic Acid Level 3.3 mmol/L (0.4-2.0) Calcium Level 7.4 mg/dL (8.5-10.1) Total Bilirubin 0.3 mg/dL (0.2-1.0) Aspartate Amino Transf (AST/SGOT) 15 U/L (15-37) Alanine Aminotransferase (ALT/SGPT) 10 U/L (14-59) Alkaline Phosphatase 76 U/L (46-116) Total Protein 4.9 g/dL (6.4-8.2) Albumin 1.3 g/dL (3.4-5.0) Albumin/Globulin Ratio 0.4 (1.0-1.7) Test 11/29/19 18:09 11/29/19 21:30 11/30/19 00:38 11/30/19 05:15 Glucose (Fingerstick) 194 mg/dL (70-99) 167 mg/dL (70-99) Lactic Acid Level 2.8 mmol/L (0.4-2.0) White Blood Count 13.8 x10^3/uL (4.0-11.0) Red Blood Count 2.64 x10^6/uL (3.50-5.40) Hemoglobin 7.3 g/dL (12.0-15.5) Hematocrit 23.7 % (36.0-47.0) Mean Corpuscular Volume 90 fL (79-100) Mean Corpuscular Hemoglobin 28 pg (25-35) Mean Corpuscular Hemoglobin Concent 31 g/dL (31-37) Red Cell Distribution Width 19.6 % (11.5-14.5) Platelet Count 397 x10^3/uL (140-400) Neutrophils (%) (Auto) 87 % (31-73) Lymphocytes (%) (Auto) 7 % (24-48) Monocytes (%) (Auto) 5 % (0-9) Eosinophils (%) (Auto) 1 % (0-3) Basophils (%) (Auto) 0 % (0-3) Neutrophils # (Auto) 12.0 x10^3/uL (1.8-7.7) Lymphocytes # (Auto) 0.9 x10^3/uL (1.0-4.8) Monocytes # (Auto) 0.7 x10^3/uL (0.0-1.1) Eosinophils # (Auto) 0.2 x10^3/uL (0.0-0.7) Basophils # (Auto) 0.0 x10^3/uL (0.0-0.2) Sodium Level 152 mmol/L (136-145) Potassium Level 4.6 mmol/L (3.5-5.1) Chloride Level 117 mmol/L (98-107) Carbon Dioxide Level 26 mmol/L (21-32) Anion Gap 9 (6-14) Blood Urea Nitrogen 76 mg/dL (7-20) Creatinine 2.1 mg/dL (0.6-1.0) Estimated GFR (Cockcroft-Gault) 25.0 BUN/Creatinine Ratio 36 (6-20) Glucose Level 171 mg/dL (70-99) Calcium Level 7.4 mg/dL (8.5-10.1) Total Bilirubin 0.2 mg/dL (0.2-1.0) Aspartate Amino Transf (AST/SGOT) 20 U/L (15-37) Alanine Aminotransferase (ALT/SGPT) 8 U/L (14-59) Alkaline Phosphatase 86 U/L (46-116) Total Protein 5.0 g/dL (6.4-8.2) Albumin 1.3 g/dL (3.4-5.0) Albumin/Globulin Ratio 0.4 (1.0-1.7) Test 11/30/19 07:19 Glucose (Fingerstick) 166 mg/dL (70-99) Laboratory Tests Test 11/29/19 12:20 11/29/19 13:42 11/29/19 14:30 11/29/19 18:09 Glucose (Fingerstick) 172 mg/dL (70-99) 194 mg/dL (70-99) O2 Saturation 98 % (92-99) Arterial Blood pH 7.29 (7.35-7.45) Arterial Blood pCO2 at Patient Temp 35 mmHg (35-46) Arterial Blood pO2 at Patient Temp 105 mmHg (75-108) Arterial Blood HCO3 17 mmol/L (21-28) Arterial Blood Base Excess -9 mmol/L (-3-3) FiO2 4l n.c. White Blood Count 19.3 x10^3/uL (4.0-11.0) Red Blood Count 2.64 x10^6/uL (3.50-5.40) Hemoglobin 7.4 g/dL (12.0-15.5) Hematocrit 23.4 % (36.0-47.0) Mean Corpuscular Volume 89 fL (79-100) Mean Corpuscular Hemoglobin 28 pg (25-35) Mean Corpuscular Hemoglobin Concent 32 g/dL (31-37) Red Cell Distribution Width 20.0 % (11.5-14.5) Platelet Count 439 x10^3/uL (140-400) Neutrophils (%) (Auto) 93 % (31-73) Lymphocytes (%) (Auto) 2 % (24-48) Monocytes (%) (Auto) 4 % (0-9) Eosinophils (%) (Auto) 0 % (0-3) Basophils (%) (Auto) 0 % (0-3) Neutrophils # (Auto) 18.0 x10^3/uL (1.8-7.7) Lymphocytes # (Auto) 0.4 x10^3/uL (1.0-4.8) Monocytes # (Auto) 0.8 x10^3/uL (0.0-1.1) Eosinophils # (Auto) 0.0 x10^3/uL (0.0-0.7) Basophils # (Auto) 0.0 x10^3/uL (0.0-0.2) Sodium Level 154 mmol/L (136-145) Potassium Level 5.2 mmol/L (3.5-5.1) Chloride Level 117 mmol/L (98-107) Carbon Dioxide Level 29 mmol/L (21-32) Anion Gap 8 (6-14) Blood Urea Nitrogen 69 mg/dL (7-20) Creatinine 2.2 mg/dL (0.6-1.0) Estimated GFR (Cockcroft-Gault) 23.7 BUN/Creatinine Ratio 31 (6-20) Glucose Level 219 mg/dL (70-99) Lactic Acid Level 3.3 mmol/L (0.4-2.0) Calcium Level 7.4 mg/dL (8.5-10.1) Total Bilirubin 0.3 mg/dL (0.2-1.0) Aspartate Amino Transf (AST/SGOT) 15 U/L (15-37) Alanine Aminotransferase (ALT/SGPT) 10 U/L (14-59) Alkaline Phosphatase 76 U/L (46-116) Total Protein 4.9 g/dL (6.4-8.2) Albumin 1.3 g/dL (3.4-5.0) Albumin/Globulin Ratio 0.4 (1.0-1.7) Test 11/29/19 21:30 11/30/19 00:38 11/30/19 05:15 11/30/19 07:19 Lactic Acid Level 2.8 mmol/L (0.4-2.0) Glucose (Fingerstick) 167 mg/dL (70-99) 166 mg/dL (70-99) White Blood Count 13.8 x10^3/uL (4.0-11.0) Red Blood Count 2.64 x10^6/uL (3.50-5.40) Hemoglobin 7.3 g/dL (12.0-15.5) Hematocrit 23.7 % (36.0-47.0) Mean Corpuscular Volume 90 fL (79-100) Mean Corpuscular Hemoglobin 28 pg (25-35) Mean Corpuscular Hemoglobin Concent 31 g/dL (31-37) Red Cell Distribution Width 19.6 % (11.5-14.5) Platelet Count 397 x10^3/uL (140-400) Neutrophils (%) (Auto) 87 % (31-73) Lymphocytes (%) (Auto) 7 % (24-48) Monocytes (%) (Auto) 5 % (0-9) Eosinophils (%) (Auto) 1 % (0-3) Basophils (%) (Auto) 0 % (0-3) Neutrophils # (Auto) 12.0 x10^3/uL (1.8-7.7) Lymphocytes # (Auto) 0.9 x10^3/uL (1.0-4.8) Monocytes # (Auto) 0.7 x10^3/uL (0.0-1.1) Eosinophils # (Auto) 0.2 x10^3/uL (0.0-0.7) Basophils # (Auto) 0.0 x10^3/uL (0.0-0.2) Sodium Level 152 mmol/L (136-145) Potassium Level 4.6 mmol/L (3.5-5.1) Chloride Level 117 mmol/L (98-107) Carbon Dioxide Level 26 mmol/L (21-32) Anion Gap 9 (6-14) Blood Urea Nitrogen 76 mg/dL (7-20) Creatinine 2.1 mg/dL (0.6-1.0) Estimated GFR (Cockcroft-Gault) 25.0 BUN/Creatinine Ratio 36 (6-20) Glucose Level 171 mg/dL (70-99) Calcium Level 7.4 mg/dL (8.5-10.1) Total Bilirubin 0.2 mg/dL (0.2-1.0) Aspartate Amino Transf (AST/SGOT) 20 U/L (15-37) Alanine Aminotransferase (ALT/SGPT) 8 U/L (14-59) Alkaline Phosphatase 86 U/L (46-116) Total Protein 5.0 g/dL (6.4-8.2) Albumin 1.3 g/dL (3.4-5.0) Albumin/Globulin Ratio 0.4 (1.0-1.7) Medications Active Scripts Medications Dose Route/Sig Max Daily Dose Days Date Category Bisoprolol Fumarate 5 Mg Tablet 10 Mg PO DAILY 07/04/[address] reviewed 10/30/19, Decreased left-sided effusion after catheter placement. The right-sided effusion has increased as has atelectasis. There has been exchange or placement of multiple drainage tubes and a gastrojejunostomy tube. Both collections are smaller. No significant new abdominal fluid collection is seen. The jejunal component of the gastrojejunostomy tube appears to be looped in the proximal small bowel. ct abdomen /pelvis 09/23 1. Removal of the percutaneous pigtail drainage catheters since the prior exam. Sequela of pancreatitis with extensive pseudocysts again demonstrated, the right-sided collections are slightly larger since the prior exam, the left-sided collections are stable. See above. 2. Moderate to large left pleural effusion with atelectasis and collapse of most of the left lower lobe, stable. Small right pleural effusion is stable. 3. Gallstone. ct chest 10/02 reviewed GRAM NEG COCCOBACILLI:MANY SQUAMOUS EPI CELL:RARE PMN (WBCs):FEW Unless otherwise specified, Testing Performed by: [address] [address] For Inquires, the Physician may contact the Microbiology department at [phone] RESPIRATORY CULTURE Final Final MANY GRAM NEGATIVE RODS on 10/03/19 at 1104 FINAL ID= [[email or web address]] MICRO CHARGES PSEUDOMONAS AERUGINOSA ANTIMICROBIAL SUSCEPTIBILITY Final Comment NEG ALEXANDRA 56 PSEUDOMONAS AERUGINOSA ANTIBIOTIC RESULT INTERPRETATION AMIKACIN <=16 S AZTREONAM <=4 S CEFTAZIDIME <=1 S CIPROFLOXACIN <=0.25 S CEFEPIME <=2 S CEFTAZIDIME/AVIBACTAM <=4 S GENTAMICIN <=2 S LEVOFLOXACIN <=0.5 S Impression . IMPRESSION: 1. Acute hypoxemic respiratory failure secondary to ARDS status post trach, developed anemia 09/24, blood drainage from RLQ abdomen drain site, and surrounding firmness / developed septic shock 09/24 from abdomen source, required levo 09/24-- now on room air with trach s/p 3 new drains 09/24 with brown color drainage, --- off pressors S/P Exp. 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 parapsilosis & PSAE (I-merrem/ceftazidime/AZT/cefepime)) Increase R/R, hr 11/28. RESPONDED TO BICARB/ PRN SUCTION Acute gallstone pancreatitis with persistent necrosis - 07/27. CT A/P Increased ascites. 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 status post KAYLIN drain placement; C. parapsilosis. s/p drain 08/23 + yeast & high amylase; s/p additional drain on 08/25. Drains removed. -08/23. fluid devyn parapsilosis fluid, amylase high - 09/23 showed multiple pseudocysts, slight larger on the right. s/p drains x 3, 09/24. + PSAE (MDRO-R Cefepime, Zosyn ALEXANDRA < 64) and yeast, -09/24 s/p drain replacement x 3; fluid cult PSAE (MDRO), yeast; treated -10/29 CT A/P shows smaller fluid collections. -722 CT abdomen and pelvis drains in place Ascites s/p paracentesis 08/02 & 08/23. C. parapsilosis Cholelithiasis with thickening of the gallbladder wall. JUANA, Hyperkalemia, Metabolic acidosis off dialysis Acute hypoxic resp failure. trach/vent. sputum 09/30 + PSAE (I merrem) ; sputum culture November 05+ for PSAE R Merrem, sensitive to cefepime Pleural effusion status post CTS left side Abdominal fluid culture MDRO Pseudomonas, yeast Sputum culture positive 11/05 for MDRO Pseudomonas Chest tube fluid positive for 11/07 Devyn Parapsilosis S/P Exploratory laparotomy, lysis of adhesions, subtotal cholecystectomy with cholangiogram, gastrojejunostomy tube placement, pancreatic necrosectomy Plan . Improved today from pulmonary stand point prn suction no trach decanulation for now. chest tube REMOVED 11/10 Transfuse as needed, monitor HGB Antibiotics per ID, Up to chair, PT/OT Follow surgery input-- DVT GI prophylaxis DVT/GI PPX Will see PRN call with any concerns VINAYAK LANDRUM MD Nov 30, 2019 11:08
--- NOTE | 2019-11-30 11:35 | PDOC ---
PROGRESS NOTES Date of Service: DATE: 11/30/19 TIME: 11:34 Chief Complaint Chief Complaint S/P Exp. 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 parapsilosis & PSAE 11/12 (I-merrem/ceftazidime/AZT/cefepime)) Leucocytosis Fevers, intermittent Acute gallstone pancreatitis with persistent necrosis Acute hypoxic Respiratory failure required mechanical ventilation Tracheostomy Bilateral pleural effusions/pulm edema s/p Throacentesis on 10/03/2019 HTN Intractable pain Intractable nausea Covid 19 negative Acute on chronic anemia Abd distention - U/S and CT reviewed s/p 0.4 L of opaque, debris-containing ascites was removed 08/23 Gallstone pancreatitis with necrosis. -CT A/P 09/23 showed multiple pseudocysts, slight larger on the right. s/p drains x 3, 09/24. + PSAE (MDRO-R Cefepime, Zosyn ALEXANDRA < 64) and yeast, -s/p drain 08/14. C. parapsilosis. s/p drain 08/23 + yeast & high amylase; s/p additional drain on 08/25. Drains removed. Ascites s/p paracentesis 08/02 & 08/23. C. parapsilosis JUANA. off HD. A large fluid collection in the pancreatic bed has slightly decreased in size, described below, the pancreas itself is difficult to visualize, which could be due to necrosis or obscuration of pancreatic parenchyma from the surrounding fluid collection.10/02 - 08/14 status post KAYLIN drain placement + C paropsilosis. s/p additional drains 08/25 Hypocalcemia Prediabetes s/p trach Hyperglycemia Severe protein-caloric malnutrition Extensive retroperitoneal fluid collections persist. Percutaneous drains remain within the collections in both paracolic gutters. These communicate with additional pelvic and peripancreatic collections. History of Present Illness History of Present Illness 11/29. pain in legs, BP better, some better Urine outptu 11/28. dyspnea and mild distress worsened this AM. but was able to walk some with PT later. still HR 140 sometimes, 11/28/2019 Patient seen and examined Afebrile Resting in NAD Tachycardic and tachypneic overnight Recurring leukocytosis, 23.0 Chart reviewed Discussed with RN 11/26: Afebrile. Calcium down to 10.1. Little more tachycardic today with some more secretions. No O2 requirements. Does not wish to wear her speaking valve. Will check CXR. 11/25: Afebrile, weak, having more secretions not wearing a speaking valve today. WBC 10, Hb 8.8, NA 144, and K3.7, BUN 12, CR 0.5, calcium down to 10.3. After zoledronic acid 11/24: Had a rash after calcitonin injection. Discussed with nephrology with her calcium moving from 11.3-10.9 will give IV bisphosphonate today, zoledronic acid. 11/23: Hb stable. Afebrile. Weak. Calcium increased. Shortness of breath is improving. Plan for calcitonin today, lasix, and saline 11/22: Hemoglobin abnormally low on repeat has been stable 7.2. Calcium up to 10.9. She is able to work with PT, she is asking to eat. Social work is been having difficulties with both of her daughters completing the financial aspect of disability paperwork which is been prolonging her stay over the past 5 months. Plan to check PTH and to treat hypercalcemia with 1 L normal saline 40 mg of IV Lasix and repeat labs in a.m. 11/21: Not wishing to wear her speaking valve. J tube having some difficulties. Afebrile. Jamaal bedside to aid her. transferred from ICU today 11/20: No overnight events. Calcium 10.7 on AM labs. She is still a bit slow to to respond, but follows commands well. Does not want speaking valve with me. Pain is better controlled in her abdomen. Wound care to see today. Will check liver function and phos levels given her calcium elevation. 11/19: Patient seen and examined bedside. Positive fluid balance in the past 24 hours. Patient's chart, labs, images were reviewed and discussed with RN 11/18: No acute events overnight. Seen and examined at bedside. Patient had a fever 100.2. Negative fluid balance of 150 cc. Patient's chart, labs, images were reviewed and discussed with RN 11/17: Patient seen and examined at bedside. No acute events overnight. Positive fluid balance 633. Patient's chart, labs, images were reviewed and discussed with RN 11/16: Patient seen and examined bedside. No acute events overnight. Patient's chart, labs, images were reviewed and discussed with RN 11/14: Patient seen and examined bedside. Patient appears to be in no obvious pain. All drains have been adequately draining. Patient continues to be on TPN. Chart labs and imaging was reviewed. Negative fluid balance of 270 cc 11/13:Patient seen and examined in the ICU. Patient still requires extensive care. 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 Chart, labs, imaging was reviewed. UOP with + 500cc balance. 11/11: Patient seen in and examined in the ICU. She is still extremely critically ill. Appears weak, frail, and pale. Better color today with improved eye contact and expression. Discussed with RN. Chart reviewed 11/07: Patient seen and examined in the ICU, She is still extremely critically ill, Appears extremely weak frail and pale, Discussed with RN, Chart reviewed Vitals Vitals Vital Signs Date Time Temp Pulse Resp B/P (MAP) Pulse Ox O2 Delivery O2 Flow Rate FiO2 11/30/19 08:59 98 Room Air 11/30/19 08:28 2.0 11/30/19 07:00 97.6 119 28 103/64 (77) 97.6 Physical Exam Physical Exam GENERAL: Resting in bed, NAD HEENT: Pupils equal, oral cavity dry. OC/Op - Dry NECK: Tracheostomy capped LUNGS: Diminished aeration bases, HEART: S1, S2, ABDOMEN: Less distended, mild- bowel sounds hypoactive, soft, GJ drain present, drainage bag in place with depedent drainage : Lind in place EXTREMITIES: Trace generalized edema, no cyanosis. Yeast in groin area SKIN: warm touch. No signs of rash. NEURO: - Alert and responsive RUE PICC site without signs of complications. PIV s clean EC fistula General: Cooperative Heart: Normal S1, Normal S2, Other Lungs: Clear Abdomen: Soft Extremities: No clubbing, No cyanosis, Other (Diffuse edema) Skin: No breakdown Labs LABS Laboratory Tests Test 11/29/19 12:20 11/29/19 13:42 11/29/19 14:30 11/29/19 18:09 Glucose (Fingerstick) 172 mg/dL (70-99) 194 mg/dL (70-99) O2 Saturation 98 % (92-99) Arterial Blood pH 7.29 (7.35-7.45) Arterial Blood pCO2 at Patient Temp 35 mmHg (35-46) Arterial Blood pO2 at Patient Temp 105 mmHg (75-108) Arterial Blood HCO3 17 mmol/L (21-28) Arterial Blood Base Excess -9 mmol/L (-3-3) FiO2 4l n.c. White Blood Count 19.3 x10^3/uL (4.0-11.0) Red Blood Count 2.64 x10^6/uL (3.50-5.40) Hemoglobin 7.4 g/dL (12.0-15.5) Hematocrit 23.4 % (36.0-47.0) Mean Corpuscular Volume 89 fL (79-100) Mean Corpuscular Hemoglobin 28 pg (25-35) Mean Corpuscular Hemoglobin Concent 32 g/dL (31-37) Red Cell Distribution Width 20.0 % (11.5-14.5) Platelet Count 439 x10^3/uL (140-400) Neutrophils (%) (Auto) 93 % (31-73) Lymphocytes (%) (Auto) 2 % (24-48) Monocytes (%) (Auto) 4 % (0-9) Eosinophils (%) (Auto) 0 % (0-3) Basophils (%) (Auto) 0 % (0-3) Neutrophils # (Auto) 18.0 x10^3/uL (1.8-7.7) Lymphocytes # (Auto) 0.4 x10^3/uL (1.0-4.8) Monocytes # (Auto) 0.8 x10^3/uL (0.0-1.1) Eosinophils # (Auto) 0.0 x10^3/uL (0.0-0.7) Basophils # (Auto) 0.0 x10^3/uL (0.0-0.2) Sodium Level 154 mmol/L (136-145) Potassium Level 5.2 mmol/L (3.5-5.1) Chloride Level 117 mmol/L (98-107) Carbon Dioxide Level 29 mmol/L (21-32) Anion Gap 8 (6-14) Blood Urea Nitrogen 69 mg/dL (7-20) Creatinine 2.2 mg/dL (0.6-1.0) Estimated GFR (Cockcroft-Gault) 23.7 BUN/Creatinine Ratio 31 (6-20) Glucose Level 219 mg/dL (70-99) Lactic Acid Level 3.3 mmol/L (0.4-2.0) Calcium Level 7.4 mg/dL (8.5-10.1) Total Bilirubin 0.3 mg/dL (0.2-1.0) Aspartate Amino Transf (AST/SGOT) 15 U/L (15-37) Alanine Aminotransferase (ALT/SGPT) 10 U/L (14-59) Alkaline Phosphatase 76 U/L (46-116) Total Protein 4.9 g/dL (6.4-8.2) Albumin 1.3 g/dL (3.4-5.0) Albumin/Globulin Ratio 0.4 (1.0-1.7) Test 11/29/19 21:30 11/30/19 00:38 11/30/19 05:15 11/30/19 07:19 Lactic Acid Level 2.8 mmol/L (0.4-2.0) Glucose (Fingerstick) 167 mg/dL (70-99) 166 mg/dL (70-99) White Blood Count 13.8 x10^3/uL (4.0-11.0) Red Blood Count 2.64 x10^6/uL (3.50-5.40) Hemoglobin 7.3 g/dL (12.0-15.5) Hematocrit 23.7 % (36.0-47.0) Mean Corpuscular Volume 90 fL (79-100) Mean Corpuscular Hemoglobin 28 pg (25-35) Mean Corpuscular Hemoglobin Concent 31 g/dL (31-37) Red Cell Distribution Width 19.6 % (11.5-14.5) Platelet Count 397 x10^3/uL (140-400) Neutrophils (%) (Auto) 87 % (31-73) Lymphocytes (%) (Auto) 7 % (24-48) Monocytes (%) (Auto) 5 % (0-9) Eosinophils (%) (Auto) 1 % (0-3) Basophils (%) (Auto) 0 % (0-3) Neutrophils # (Auto) 12.0 x10^3/uL (1.8-7.7) Lymphocytes # (Auto) 0.9 x10^3/uL (1.0-4.8) Monocytes # (Auto) 0.7 x10^3/uL (0.0-1.1) Eosinophils # (Auto) 0.2 x10^3/uL (0.0-0.7) Basophils # (Auto) 0.0 x10^3/uL (0.0-0.2) Sodium Level 152 mmol/L (136-145) Potassium Level 4.6 mmol/L (3.5-5.1) Chloride Level 117 mmol/L (98-107) Carbon Dioxide Level 26 mmol/L (21-32) Anion Gap 9 (6-14) Blood Urea Nitrogen 76 mg/dL (7-20) Creatinine 2.1 mg/dL (0.6-1.0) Estimated GFR (Cockcroft-Gault) 25.0 BUN/Creatinine Ratio 36 (6-20) Glucose Level 171 mg/dL (70-99) Calcium Level 7.4 mg/dL (8.5-10.1) Total Bilirubin 0.2 mg/dL (0.2-1.0) Aspartate Amino Transf (AST/SGOT) 20 U/L (15-37) Alanine Aminotransferase (ALT/SGPT) 8 U/L (14-59) Alkaline Phosphatase 86 U/L (46-116) Total Protein 5.0 g/dL (6.4-8.2) Albumin 1.3 g/dL (3.4-5.0) Albumin/Globulin Ratio 0.4 (1.0-1.7) Assessment and Plan Assessmemt and Plan Problems Medical Problems: (1) Acute pancreatitis Status: Acute (2) Cholelithiasis Status: Acute Comment Review of Relevant I have reviewed the following items kolby (where applicable) has been applied. Labs Laboratory Tests Test 11/28/19 12:27 11/28/19 18:38 11/29/19 00:25 11/29/19 05:30 Glucose (Fingerstick) 171 mg/dL (70-99) 210 mg/dL (70-99) 185 mg/dL (70-99) Sodium Level 147 mmol/L (136-145) Potassium Level 5.9 mmol/L (3.5-5.1) Chloride Level 113 mmol/L (98-107) Carbon Dioxide Level 25 mmol/L (21-32) Anion Gap 9 (6-14) Blood Urea Nitrogen 61 mg/dL (7-20) Creatinine 1.8 mg/dL (0.6-1.0) Estimated GFR (Cockcroft-Gault) 29.9 Glucose Level 209 mg/dL (70-99) Calcium Level 8.2 mg/dL (8.5-10.1) Test 11/29/19 05:34 11/29/19 12:20 11/29/19 13:42 11/29/19 14:30 Glucose (Fingerstick) 190 mg/dL (70-99) 172 mg/dL (70-99) O2 Saturation 98 % (92-99) Arterial Blood pH 7.29 (7.35-7.45) Arterial Blood pCO2 at Patient Temp 35 mmHg (35-46) Arterial Blood pO2 at Patient Temp 105 mmHg (75-108) Arterial Blood HCO3 17 mmol/L (21-28) Arterial Blood Base Excess -9 mmol/L (-3-3) FiO2 4l n.c. White Blood Count 19.3 x10^3/uL (4.0-11.0) Red Blood Count 2.64 x10^6/uL (3.50-5.40) Hemoglobin 7.4 g/dL (12.0-15.5) Hematocrit 23.4 % (36.0-47.0) Mean Corpuscular Volume 89 fL (79-100) Mean Corpuscular Hemoglobin 28 pg (25-35) Mean Corpuscular Hemoglobin Concent 32 g/dL (31-37) Red Cell Distribution Width 20.0 % (11.5-14.5) Platelet Count 439 x10^3/uL (140-400) Neutrophils (%) (Auto) 93 % (31-73) Lymphocytes (%) (Auto) 2 % (24-48) Monocytes (%) (Auto) 4 % (0-9) Eosinophils (%) (Auto) 0 % (0-3) Basophils (%) (Auto) 0 % (0-3) Neutrophils # (Auto) 18.0 x10^3/uL (1.8-7.7) Lymphocytes # (Auto) 0.4 x10^3/uL (1.0-4.8) Monocytes # (Auto) 0.8 x10^3/uL (0.0-1.1) Eosinophils # (Auto) 0.0 x10^3/uL (0.0-0.7) Basophils # (Auto) 0.0 x10^3/uL (0.0-0.2) Sodium Level 154 mmol/L (136-145) Potassium Level 5.2 mmol/L (3.5-5.1) Chloride Level 117 mmol/L (98-107) Carbon Dioxide Level 29 mmol/L (21-32) Anion Gap 8 (6-14) Blood Urea Nitrogen 69 mg/dL (7-20) Creatinine 2.2 mg/dL (0.6-1.0) Estimated GFR (Cockcroft-Gault) 23.7 BUN/Creatinine Ratio 31 (6-20) Glucose Level 219 mg/dL (70-99) Lactic Acid Level 3.3 mmol/L (0.4-2.0) Calcium Level 7.4 mg/dL (8.5-10.1) Total Bilirubin 0.3 mg/dL (0.2-1.0) Aspartate Amino Transf (AST/SGOT) 15 U/L (15-37) Alanine Aminotransferase (ALT/SGPT) 10 U/L (14-59) Alkaline Phosphatase 76 U/L (46-116) Total Protein 4.9 g/dL (6.4-8.2) Albumin 1.3 g/dL (3.4-5.0) Albumin/Globulin Ratio 0.4 (1.0-1.7) Test 11/29/19 18:09 11/29/19 21:30 11/30/19 00:38 11/30/19 05:15 Glucose (Fingerstick) 194 mg/dL (70-99) 167 mg/dL (70-99) Lactic Acid Level 2.8 mmol/L (0.4-2.0) White Blood Count 13.8 x10^3/uL (4.0-11.0) Red Blood Count 2.64 x10^6/uL (3.50-5.40) Hemoglobin 7.3 g/dL (12.0-15.5) Hematocrit 23.7 % (36.0-47.0) Mean Corpuscular Volume 90 fL (79-100) Mean Corpuscular Hemoglobin 28 pg (25-35) Mean Corpuscular Hemoglobin Concent 31 g/dL (31-37) Red Cell Distribution Width 19.6 % (11.5-14.5) Platelet Count 397 x10^3/uL (140-400) Neutrophils (%) (Auto) 87 % (31-73) Lymphocytes (%) (Auto) 7 % (24-48) Monocytes (%) (Auto) 5 % (0-9) Eosinophils (%) (Auto) 1 % (0-3) Basophils (%) (Auto) 0 % (0-3) Neutrophils # (Auto) 12.0 x10^3/uL (1.8-7.7) Lymphocytes # (Auto) 0.9 x10^3/uL (1.0-4.8) Monocytes # (Auto) 0.7 x10^3/uL (0.0-1.1) Eosinophils # (Auto) 0.2 x10^3/uL (0.0-0.7) Basophils # (Auto) 0.0 x10^3/uL (0.0-0.2) Sodium Level 152 mmol/L (136-145) Potassium Level 4.6 mmol/L (3.5-5.1) Chloride Level 117 mmol/L (98-107) Carbon Dioxide Level 26 mmol/L (21-32) Anion Gap 9 (6-14) Blood Urea Nitrogen 76 mg/dL (7-20) Creatinine 2.1 mg/dL (0.6-1.0) Estimated GFR (Cockcroft-Gault) 25.0 BUN/Creatinine Ratio 36 (6-20) Glucose Level 171 mg/dL (70-99) Calcium Level 7.4 mg/dL (8.5-10.1) Total Bilirubin 0.2 mg/dL (0.2-1.0) Aspartate Amino Transf (AST/SGOT) 20 U/L (15-37) Alanine Aminotransferase (ALT/SGPT) 8 U/L (14-59) Alkaline Phosphatase 86 U/L (46-116) Total Protein 5.0 g/dL (6.4-8.2) Albumin 1.3 g/dL (3.4-5.0) Albumin/Globulin Ratio 0.4 (1.0-1.7) Test 11/30/19 07:19 Glucose (Fingerstick) 166 mg/dL (70-99) Laboratory Tests Test 11/29/19 12:20 11/29/19 13:42 11/29/19 14:30 11/29/19 18:09 Glucose (Fingerstick) 172 mg/dL (70-99) 194 mg/dL (70-99) O2 Saturation 98 % (92-99) Arterial Blood pH 7.29 (7.35-7.45) Arterial Blood pCO2 at Patient Temp 35 mmHg (35-46) Arterial Blood pO2 at Patient Temp 105 mmHg (75-108) Arterial Blood HCO3 17 mmol/L (21-28) Arterial Blood Base Excess -9 mmol/L (-3-3) FiO2 4l n.c. White Blood Count 19.3 x10^3/uL (4.0-11.0) Red Blood Count 2.64 x10^6/uL (3.50-5.40) Hemoglobin 7.4 g/dL (12.0-15.5) Hematocrit 23.4 % (36.0-47.0) Mean Corpuscular Volume 89 fL (79-100) Mean Corpuscular Hemoglobin 28 pg (25-35) Mean Corpuscular Hemoglobin Concent 32 g/dL (31-37) Red Cell Distribution Width 20.0 % (11.5-14.5) Platelet Count 439 x10^3/uL (140-400) Neutrophils (%) (Auto) 93 % (31-73) Lymphocytes (%) (Auto) 2 % (24-48) Monocytes (%) (Auto) 4 % (0-9) Eosinophils (%) (Auto) 0 % (0-3) Basophils (%) (Auto) 0 % (0-3) Neutrophils # (Auto) 18.0 x10^3/uL (1.8-7.7) Lymphocytes # (Auto) 0.4 x10^3/uL (1.0-4.8) Monocytes # (Auto) 0.8 x10^3/uL (0.0-1.1) Eosinophils # (Auto) 0.0 x10^3/uL (0.0-0.7) Basophils # (Auto) 0.0 x10^3/uL (0.0-0.2) Sodium Level 154 mmol/L (136-145) Potassium Level 5.2 mmol/L (3.5-5.1) Chloride Level 117 mmol/L (98-107) Carbon Dioxide Level 29 mmol/L (21-32) Anion Gap 8 (6-14) Blood Urea Nitrogen 69 mg/dL (7-20) Creatinine 2.2 mg/dL (0.6-1.0) Estimated GFR (Cockcroft-Gault) 23.7 BUN/Creatinine Ratio 31 (6-20) Glucose Level 219 mg/dL (70-99) Lactic Acid Level 3.3 mmol/L (0.4-2.0) Calcium Level 7.4 mg/dL (8.5-10.1) Total Bilirubin 0.3 mg/dL (0.2-1.0) Aspartate Amino Transf (AST/SGOT) 15 U/L (15-37) Alanine Aminotransferase (ALT/SGPT) 10 U/L (14-59) Alkaline Phosphatase 76 U/L (46-116) Total Protein 4.9 g/dL (6.4-8.2) Albumin 1.3 g/dL (3.4-5.0) Albumin/Globulin Ratio 0.4 (1.0-1.7) Test 11/29/19 21:30 11/30/19 00:38 11/30/19 05:15 11/30/19 07:19 Lactic Acid Level 2.8 mmol/L (0.4-2.0) Glucose (Fingerstick) 167 mg/dL (70-99) 166 mg/dL (70-99) White Blood Count 13.8 x10^3/uL (4.0-11.0) Red Blood Count 2.64 x10^6/uL (3.50-5.40) Hemoglobin 7.3 g/dL (12.0-15.5) Hematocrit 23.7 % (36.0-47.0) Mean Corpuscular Volume 90 fL (79-100) Mean Corpuscular Hemoglobin 28 pg (25-35) Mean Corpuscular Hemoglobin Concent 31 g/dL (31-37) Red Cell Distribution Width 19.6 % (11.5-14.5) Platelet Count 397 x10^3/uL (140-400) Neutrophils (%) (Auto) 87 % (31-73) Lymphocytes (%) (Auto) 7 % (24-48) Monocytes (%) (Auto) 5 % (0-9) Eosinophils (%) (Auto) 1 % (0-3) Basophils (%) (Auto) 0 % (0-3) Neutrophils # (Auto) 12.0 x10^3/uL (1.8-7.7) Lymphocytes # (Auto) 0.9 x10^3/uL (1.0-4.8) Monocytes # (Auto) 0.7 x10^3/uL (0.0-1.1) Eosinophils # (Auto) 0.2 x10^3/uL (0.0-0.7) Basophils # (Auto) 0.0 x10^3/uL (0.0-0.2) Sodium Level 152 mmol/L (136-145) Potassium Level 4.6 mmol/L (3.5-5.1) Chloride Level 117 mmol/L (98-107) Carbon Dioxide Level 26 mmol/L (21-32) Anion Gap 9 (6-14) Blood Urea Nitrogen 76 mg/dL (7-20) Creatinine 2.1 mg/dL (0.6-1.0) Estimated GFR (Cockcroft-Gault) 25.0 BUN/Creatinine Ratio 36 (6-20) Glucose Level 171 mg/dL (70-99) Calcium Level 7.4 mg/dL (8.5-10.1) Total Bilirubin 0.2 mg/dL (0.2-1.0) Aspartate Amino Transf (AST/SGOT) 20 U/L (15-37) Alanine Aminotransferase (ALT/SGPT) 8 U/L (14-59) Alkaline Phosphatase 86 U/L (46-116) Total Protein 5.0 g/dL (6.4-8.2) Albumin 1.3 g/dL (3.4-5.0) Albumin/Globulin Ratio 0.4 (1.0-1.7) Microbiology 11/28/19 Blood Culture - Preliminary, Resulted NO GROWTH AFTER 2 DAYS 11/13/19 Gram Stain - Final, Complete 11/13/19 Aerobic Culture - Final, Complete 11/13/19 Urine Culture - Final, Complete 11/08/19 Gram Stain - Final, Complete 11/08/19 Aerobic and Anaerobic Culture - Final, Complete 11/06/19 Gram Stain Evaluation - Final, Complete 11/06/19 Respiratory Culture - Final, Complete 11/06/19 Antimicrobic Susceptibility - Final, Complete 10/18/19 Gram Stain - Final, Complete 10/18/19 Aerobic and Anaerobic Culture - Final, Complete 10/18/19 Antimicrobic Susceptibility - Final, Complete Medications Current Medications Sodium Chloride 1,000 ml @ 1,000 mls/hr Q1H IV Last administered on 07/04/19at 03:00; Start 07/04/19 at 03:00; Stop 07/04/19 at 03:59; Status DC Ondansetron HCl (Zofran) 4 mg 1X ONCE IVP Last administered on 07/04/19at 03:27; Start 07/04/19 at 03:00; Stop 07/04/19 at 03:01; Status DC Morphine Sulfate (Morphine Sulfate) 4 mg 1X ONCE IV ; Start 07/04/19 at 03:00; Stop 07/04/19 at 03:01; Status Cancel Ketorolac Tromethamine (Toradol 30mg Vial) 30 mg 1X ONCE IV Last administered on 07/04/19at 02:54; Start 07/04/19 at 03:00; Stop 07/04/19 at 03:01; Status DC Fentanyl Citrate (Fentanyl 2ml Vial) 25 mcg 1X ONCE IVP Last administered on 07/04/19at 03:23; Start 07/04/19 at 03:30; Stop 07/04/19 at 03:31; Status DC Fentanyl Citrate (Fentanyl 2ml Vial) 100 mcg STK-MED ONCE .ROUTE ; Start 07/04/19 at 03:18; Stop 07/04/19 at 03:18; Status DC Iohexol (Omnipaque 350 Mg/ml) 90 ml 1X ONCE IV Last administered on 07/04/19at 03:25; Start 07/04/19 at 03:30; Stop 07/04/19 at 03:31; Status DC Info (CONTRAST GIVEN -- Rx MONITORING) 1 each PRN DAILY PRN MC SEE COMMENTS; Start 07/04/19 at 03:30; Stop 07/06/19 at 03:29; Status DC Hydromorphone HCl (Dilaudid) 0.5 mg 1X ONCE IV Last administered on 07/04/19at 03:55; Start 07/04/19 at 04:30; Stop 07/04/19 at 04:32; Status DC Ondansetron HCl (Zofran) 4 mg PRN Q8HRS PRN IV NAUSEA/VOMITING 1ST CHOICE; Start 07/04/19 at 05:00; Stop 07/04/19 at 09:27; Status DC Morphine Sulfate (Morphine Sulfate) 2 mg PRN Q2HR PRN IV SEVERE PAIN 7-10 Last administered on 07/05/19at 12:26; Start 07/04/19 at 05:00; Stop 07/05/19 at 14:15; Status DC Sodium Chloride 1,000 ml @ 125 mls/hr Q8H IV Last administered on 07/04/19at 20:56; Start 07/04/19 at 05:00; Stop 07/05/19 at 04:59; Status DC Hydromorphone HCl (Dilaudid) 0.5 mg PRN Q3HRS PRN IV SEVERE PAIN 7-10 Last administered on 07/05/19at 10:06; Start 07/04/19 at 05:00; Stop 07/05/19 at 12:01; Status DC Piperacillin Sod/ Tazobactam Sod 4.5 gm/Sodium Chloride 100 ml @ 200 mls/hr 1X ONCE IV Last administered on 07/04/19at 05:44; Start 07/04/19 at 06:00; Stop 07/04/19 at 06:29; Status DC Ondansetron HCl (Zofran) 4 mg PRN Q4HRS PRN IV NAUSEA/VOMITING 1ST CHOICE Last administered on 11/27/19at 23:15; Start 07/04/19 at 09:30 Insulin Human Lispro (HumaLOG) 0-9 UNITS Q6HRS SQ Last administered on 11/28/19at 19:01; Start 07/04/19 at 09:30 Dextrose (Dextrose 50%-Water Syringe) 12.5 gm PRN Q15MIN PRN IV SEE COMMENTS; Start 07/04/19 at 09:30 Pantoprazole Sodium (PROTONIX VIAL for IV PUSH) 40 mg DAILYAC IVP Last administered on 11/30/19at 08:28; Start 07/04/19 at 11:30 Prochlorperazine Edisylate (Compazine) 10 mg PRN Q6HRS PRN IV NAUSEA/VOMITING, 2nd CHOICE Last administered on 11/28/19at 00:42; Start 07/04/19 at 17:45 Atenolol (Tenormin) 100 mg DAILY PO ; Start 07/05/19 at 09:00; Stop 07/04/19 at 20:08; Status DC Metoprolol Tartrate (Lopressor Vial) 2.5 mg Q6HRS IVP Last administered on 07/05/19at 05:51; Start 07/04/19 at 20:15; Stop 07/05/19 at 10:02; Status DC Metoprolol Tartrate (Lopressor Vial) 5 mg Q6HRS IVP Last administered on 07/14/19at 00:12; Start 07/05/19 at 10:15; Stop 07/16/19 at 08:48; Status DC Hydromorphone HCl (Dilaudid) 1 mg PRN Q3HRS PRN IV SEVERE PAIN 7-10 Last administered on 07/11/19at 05:13; Start 07/05/19 at 12:00; Stop 07/19/19 at 00:25; Status DC Lidocaine HCl (Buffered Lidocaine 1%) 3 ml STK-MED ONCE .ROUTE ; Start 07/05/19 at 12:55; Stop 07/05/19 at 12:56; Status DC Albumin Human 500 ml @ 125 mls/hr 1X ONCE IV Last administered on 07/05/19at 14:33; Start 07/05/19 at 14:30; Stop 07/05/19 at 18:32; Status DC Norepinephrine Bitartrate 8 mg/ Dextrose 258 ml @ 17.299 mls/ hr CONT PRN IV PER PROTOCOL Last administered on 08/02/19at 12:48; Start 07/05/19 at 15:30; Stop 08/05/19 at 09:19; Status DC Sodium Chloride 1,000 ml @ 125 mls/hr Q8H IV Last administered on 07/05/19at 21:04; Start 07/05/19 at 16:00; Stop 07/06/19 at 02:42; Status DC Albumin Human 500 ml @ 125 mls/hr PRN BID PRN IV After every 2L NSS & BP < 90mm Last administered on 10/18/19at 16:06; Start 07/05/19 at 16:00; Stop 10/21/19 at 09:30; Status DC Iohexol (Omnipaque 300 Mg/ml) 60 ml 1X ONCE IV Last administered on 07/05/19at 17:20; Start 07/05/19 at 17:00; Stop 07/05/19 at 17:01; Status DC Info (CONTRAST GIVEN -- Rx MONITORING) 1 each PRN DAILY PRN MC SEE COMMENTS; Start 07/05/19 at 17:00; Stop 07/07/19 at 16:59; Status DC Meropenem 1 gm/ Sodium Chloride 100 ml @ 200 mls/hr Q8HRS IV Last administered on 07/06/19at 05:45; Start 07/05/19 at 20:00; Stop 07/06/19 at 08:48; Status DC Furosemide (Lasix) 40 mg 1X ONCE IVP Last administered on 07/05/19at 22:12; Start 07/05/19 at 22:30; Stop 07/05/19 at 22:31; Status DC Calcium Chloride 1000 mg/Sodium Chloride 110 ml @ 220 mls/hr 1X ONCE IV Last administered on 07/05/19at 22:11; Start 07/05/19 at 22:30; Stop 07/05/19 at 22:59; Status DC Albuterol Sulfate (Ventolin Neb Soln) 2.5 mg 1X ONCE NEB Last administered on 07/06/19at 00:56; Start 07/05/19 at 22:30; Stop 07/05/19 at 22:31; Status DC Insulin Human Regular (HumuLIN R VIAL) 5 unit 1X ONCE IV Last administered on 07/05/19at 22:14; Start 07/05/19 at 22:30; Stop 07/05/19 at 22:31; Status DC Magnesium Sulfate 50 ml @ 25 mls/hr 1X ONCE IV Last administered on 07/06/19at 02:57; Start 07/06/19 at 03:00; Stop 07/06/19 at 04:59; Status DC Calcium Gluconate 1000 mg/Sodium Chloride 110 ml @ 220 mls/hr 1X ONCE IV Last administered on 07/06/19at 02:46; Start 07/06/19 at 03:00; Stop 07/06/19 at 03:29; Status DC Sodium Chloride 1,000 ml @ 200 mls/hr Q5H IV Last administered on 07/06/19at 02:46; Start 07/06/19 at 03:00; Stop 07/06/19 at 10:21; Status DC Calcium Gluconate 1000 mg/Sodium Chloride 110 ml @ 220 mls/hr 1X ONCE IV Last administered on 07/06/19at 03:21; Start 07/06/19 at 03:30; Stop 07/06/19 at 03:59; Status DC Sodium Bicarbonate 50 meq/Sodium Chloride 1,050 ml @ 75 mls/hr Q14H IV Last administered on 07/10/19at 21:10; Start 07/06/19 at 07:30; Stop 07/11/19 at 10:28; Status DC Calcium Gluconate 2000 mg/Sodium Chloride 120 ml @ 220 mls/hr 1X ONCE IV Last administered on 07/06/19at 09:05; Start 07/06/19 at 07:30; Stop 07/06/19 at 08:02; Status DC Lidocaine HCl (Xylocaine-Mpf 1% 2ml Vial) 2 ml STK-MED ONCE .ROUTE ; Start 07/06/19 at 08:47; Stop 07/06/19 at 08:47; Status DC Meropenem 500 mg/ Sodium Chloride 50 ml @ 100 mls/hr Q12HR IV Last administered on 07/11/19at 21:01; Start 07/06/19 at 18:00; Stop 07/12/19 at 07:58; Status DC Lidocaine HCl (Buffered Lidocaine 1%) 3 ml STK-MED ONCE .ROUTE ; Start 07/06/19 at 09:46; Stop 07/06/19 at 09:46; Status DC Lidocaine HCl (Buffered Lidocaine 1%) 6 ml 1X ONCE INJ Last administered on 07/06/19at 10:26; Start 07/06/19 at 10:15; Stop 07/06/19 at 10:16; Status DC Info (Tpn Per Pharmacy) 1 each PRN DAILY PRN MC SEE COMMENTS Last administered on 11/13/19at 08:31; Start 07/06/19 at 12:00; Stop 11/13/19 at 10:41; Status DC Sodium Chloride 1,000 ml @ 1,000 mls/hr Q1H PRN IV hypotension; Start 07/06/19 at 12:07; Stop 07/06/19 at 18:06; Status DC Diphenhydramine HCl (Benadryl) 25 mg 1X PRN PRN IV ITCHING; Start 07/06/19 at 12:15; Stop 07/07/19 at 12:14; Status DC Diphenhydramine HCl (Benadryl) 25 mg 1X PRN PRN IV ITCHING; Start 07/06/19 at 12:15; Stop 07/07/19 at 12:14; Status DC Sodium Chloride 1,000 ml @ 400 mls/hr Q2H30M PRN IV PATENCY; Start 07/06/19 at 12:07; Stop 07/07/19 at 00:06; Status DC Info (PHARMACY MONITORING -- do not chart) 1 each PRN DAILY PRN MC SEE COMMENTS; Start 07/06/19 at 12:15; Stop 07/08/19 at 08:13; Status DC Sodium Chloride 90 meq/Calcium Gluconate 10 meq/ Multivitamins 10 ml/Chromium/ Copper/Manganese/ Seleni/Zn 1 ml/ Total Parenteral Nutrition/Amino Acids/Dextrose/ Fat Emulsion Intravenous 55.005 ml @ 2.292 mls/hr TPN CONT IV ; Start 07/06/19 at 22:00; Stop 07/06/19 at 12:33; Status DC Info (Tpn Per Pharmacy) 1 each PRN DAILY PRN MC SEE COMMENTS; Start 07/06/19 at 12:30; Status UNV Sodium Chloride 90 meq/Calcium Gluconate 10 meq/ Multivitamins 10 ml/Chromium/ Copper/Manganese/ Seleni/Zn 0.5 ml/ Total Parenteral Nutrition/Amino Acids/Dextrose/ Fat Emulsion Intravenous 1,512 ml @ 63 mls/hr TPN CONT IV Las t administered on 07/06/19at 22:06; Start 07/06/19 at 22:00; Stop 07/07/19 at 21:59; Status DC Calcium Carbonate/ Glycine (Tums) 500 mg PRN AFTMEALHC PRN PO INDIGESTION; Start 07/06/19 at 17:45; Stop 08/31/19 at 10:25; Status DC Calcium Gluconate (Calcium Gluconate) 2,000 mg 1X ONCE IVP Last administered on 07/07/19at 02:19; Start 07/07/19 at 02:15; Stop 07/07/19 at 02:16; Status DC Calcium Chloride 3000 mg/Sodium Chloride 1,030 ml @ 50 mls/hr [id number] IV Last administered on 07/09/19at 02:17; Start 07/07/19 at 08:00; Stop 07/09/19 at 15:23; Status DC Lorazepam (Ativan Inj) 1 mg PRN Q4HRS PRN IVP ANXIETY / AGITATION, 2nd choic Last administered on 08/05/19at 03:51; Start 07/07/19 at 09:00; Stop 08/05/19 at 09:19; Status DC Sodium Chloride 1,000 ml @ 1,000 mls/hr Q1H PRN IV hypotension; Start 07/07/19 at 08:56; Stop 07/07/19 at 14:55; Status DC Albumin Human 200 ml @ 200 mls/hr 1X PRN PRN IV Hypotension; Start 07/07/19 at 09:00; Stop 07/07/19 at 14:59; Status DC Diphenhydramine HCl (Benadryl) 25 mg 1X PRN PRN IV ITCHING; Start 07/07/19 at 09:00; Stop 07/08/19 at 08:59; Status DC Diphenhydramine HCl (Benadryl) 25 mg 1X PRN PRN IV ITCHING; Start 07/07/19 at 09:00; Stop 07/08/19 at 08:59; Status DC Sodium Chloride 1,000 ml @ 400 mls/hr Q2H30M PRN IV PATENCY; Start 07/07/19 at 08:56; Stop 07/07/19 at 20:55; Status DC Info (PHARMACY MONITORING -- do not chart) 1 each PRN DAILY PRN MC SEE COMMENTS; Start 07/07/19 at 09:00; Status UNV Info (PHARMACY MONITORING -- do not chart) 1 each PRN DAILY PRN MC SEE COMMENTS; Start 07/07/19 at 09:00; Stop 07/08/19 at 08:13; Status DC Digoxin (Lanoxin) 500 mcg 1X ONCE IV Last administered on 07/07/19at 10:04; Start 07/07/19 at 10:00; Stop 07/07/19 at 10:01; Status DC Digoxin (Lanoxin) 125 mcg 1X ONCE IV Last administered on 07/07/19at 17:10; Start 07/07/19 at 18:00; Stop 07/07/19 at 18:01; Status DC Magnesium Sulfate 100 ml @ 25 mls/hr 1X ONCE IV Last administered on 07/07/19at 12:48; Start 07/07/19 at 13:00; Stop 07/07/19 at 16:59; Status DC Sodium Chloride 90 meq/Magnesium Sulfate 10 meq/ Calcium Gluconate 20 meq/ Multivitamins 10 ml/Chromium/ Copper/Manganese/ Seleni/Zn 0.5 ml/ Total Parenteral Nutrition/Amino Acids/Dextrose/ Fat Emulsion Intravenous 1,512 ml @ 63 mls/hr TPN CONT IV Last administered on 07/07/19at 22:25; Start 07/07/19 at 22:00; Stop 07/08/19 at 21:59; Status DC Sodium Chloride 1,000 ml @ 1,000 mls/hr Q1H PRN IV hypotension; Start 07/08/19 at 08:05; Stop 07/08/19 at 14:04; Status DC Albumin Human 200 ml @ 200 mls/hr 1X ONCE IV Last administered on 07/08/19at 08:57; Start 07/08/19 at 08:15; Stop 07/08/19 at 09:14; Status DC Diphenhydramine HCl (Benadryl) 25 mg 1X PRN PRN IV ITCHING; Start 07/08/19 at 08:15; Stop 07/09/19 at 08:14; Status DC Diphenhydramine HCl (Benadryl) 25 mg 1X PRN PRN IV ITCHING; Start 07/08/19 at 08:15; Stop 07/09/19 at 08:14; Status DC Sodium Chloride 1,000 ml @ 400 mls/hr Q2H30M PRN IV PATENCY; Start 07/08/19 at 08:05; Stop 07/08/19 at 20:04; Status DC Info (PHARMACY MONITORING -- do not chart) 1 each PRN DAILY PRN MC SEE COMMENTS; Start 07/08/19 at 08:15; Stop 07/12/19 at 07:57; Status DC Sodium Chloride 90 meq/Potassium Chloride 15 meq/ Potassium Phosphate 10 mmol/ Magnesium Sulfate 10 meq/Calcium Gluconate 20 meq/ Multivitamins 10 ml/Chromium/ Copper/Manganese/ Seleni/Zn 0.5 ml/ Total Parenteral Nutrition/Amino Acids/Dextrose/ Fat Emulsion Intravenous 1,512 ml @ 63 mls/hr TPN CONT IV Last administered on 07/08/19at 21:01; Start 07/08/19 at 22:00; Stop 07/09/19 at 21:59; Status DC Potassium Chloride/Water 100 ml @ 100 mls/hr 1X ONCE IV Last administered on 07/08/19at 14:09; Start 07/08/19 at 14:00; Stop 07/08/19 at 14:59; Status DC Benzocaine (Hurricaine One) 1 spray 1X ONCE MM Last administered on 07/08/19at 16:38; Start 07/08/19 at 14:30; Stop 07/08/19 at 14:31; Status DC Lidocaine HCl (Glydo (Lidocaine) Jelly) 1 ramu 1X ONCE MM Last administered on 07/08/19at 16:38; Start 07/08/19 at 14:30; Stop 07/08/19 at 14:31; Status DC Linezolid/Dextrose 300 ml @ 300 mls/hr Q12HR IV Last administered on 07/14/19at 21:04; Start 07/08/19 at 20:00; Stop 07/15/19 at 07:50; Status DC Acetaminophen (Tylenol) 650 mg PRN Q6HRS PRN PO MILD PAIN / TEMP; Start 07/09/19 at 03:30; Stop 07/09/19 at 03:36; Status DC Acetaminophen (Tylenol) 650 mg PRN Q6HRS PRN PEG MILD PAIN / TEMP Last administered on 08/04/19at 19:56; Start 07/09/19 at 03:36; Stop 08/31/19 at 10:25; Status DC Sodium Chloride 1,000 ml @ 1,000 mls/hr Q1H PRN IV hypotension; Start 07/09/19 at 07:50; Stop 07/09/19 at 13:49; Status DC Albumin Human 200 ml @ 200 mls/hr 1X PRN PRN IV Hypotension; Start 07/09/19 at 08:00; Stop 07/09/19 at 13:59; Status DC Sodium Chloride (Normal Saline Flush) 10 ml 1X PRN PRN IV AP catheter pack; Start 07/09/19 at 08:00; Stop 07/10/19 at 07:59; Status DC Sodium Chloride (Normal Saline Flush) 10 ml 1X PRN PRN IV POWDER CARRIER catheter pack; Start 07/09/19 at 08:00; Stop 07/10/19 at 07:59; Status DC Sodium Chloride 1,000 ml @ 400 mls/hr Q2H30M PRN IV PATENCY; Start 07/09/19 at 07:50; Stop 07/09/19 at 19:49; Status DC Info (PHARMACY MONITORING -- do not chart) 1 each PRN DAILY PRN MC SEE COMMENTS; Start 07/09/19 at 08:00; Status UNV Info (PHARMACY MONITORING -- do not chart) 1 each PRN DAILY PRN MC SEE COMMENTS; Start 07/09/19 at 08:00; Stop 07/11/19 at 08:25; Status DC Sodium Chloride 90 meq/Potassium Chloride 15 meq/ Potassium Phosphate 10 mmol/ Magnesium Sulfate 10 meq/Calcium Gluconate 20 meq/ Multivitamins 10 ml/Chromium/ Copper/Manganese/ Seleni/Zn 0.5 ml/ Total Parenteral Nutrition/Amino Acids/Dextrose/ Fat Emulsion Intravenous 1,512 ml @ 63 mls/hr TPN CONT IV Last administered on 07/09/19at 20:57; Start 07/09/19 at 22:00; Stop 07/10/19 at 21:59; Status DC Sodium Chloride 90 meq/Potassium Chloride 15 meq/ Potassium Phosphate 15 mmol/ Magnesium Sulfate 10 meq/Calcium Gluconate 20 meq/ Multivitamins 10 ml/Chromium/ Copper/Manganese/ Seleni/Zn 0.5 ml/ Total Parenteral Nutrition/Amino Acids/Dextrose/ Fat Emulsion Intravenous 1,512 ml @ 63 mls/hr TPN CONT IV ; Start 07/10/19 at 22:00; Stop 07/10/19 at 14:16; Status DC Sodium Chloride 90 meq/Potassium Chloride 15 meq/ Potassium Phosphate 15 mmol/ Magnesium Sulfate 10 meq/Calcium Gluconate 20 meq/ Multivitamins 10 ml/Chromium/ Copper/Manganese/ Seleni/Zn 0.5 ml/ Total Parenteral Nutrition/Amino Acids/Dextrose/ Fat Emulsion Intravenous 1,200 ml @ 50 mls/hr TPN CONT IV ; Start 07/10/19 at 22:00; Stop 07/10/19 at 14:17; Status DC Sodium Chloride 90 meq/Potassium Chloride 15 meq/ Potassium Phosphate 10 mmol/ Magnesium Sulfate 10 meq/Calcium Gluconate 20 meq/ Multivitamins 10 ml/Chromium/ Copper/Manganese/ Seleni/Zn 0.5 ml/ Total Parenteral Nutrition/Amino Acids/Dextrose/ Fat Emulsion Intravenous 1,200 ml @ 50 mls/hr TPN CONT IV Last administered on 07/10/19at 23:29; Start 07/10/19 at 22:00; Stop 07/11/19 at 21:59; Status DC Sodium Chloride 1,000 ml @ 1,000 mls/hr Q1H PRN IV hypotension; Start 07/11/19 at 07:28; Stop 07/11/19 at 13:27; Status DC Albumin Human 200 ml @ 200 mls/hr 1X ONCE IV Last administered on 07/11/19at 08:51; Start 07/11/19 at 07:30; Stop 07/11/19 at 08:29; Status DC Diphenhydramine HCl (Benadryl) 25 mg 1X PRN PRN IV ITCHING; Start 07/11/19 at 07:30; Stop 07/12/19 at 07:29; Status DC Diphenhydramine HCl (Benadryl) 25 mg 1X PRN PRN IV ITCHING; Start 07/11/19 at 07:30; Stop 07/12/19 at 07:29; Status DC Sodium Chloride 1,000 ml @ 400 mls/hr Q2H30M PRN IV PATENCY; Start 07/11/19 at 07:28; Stop 07/11/19 at 19:27; Status DC Info (PHARMACY MONITORING -- do not chart) 1 each PRN DAILY PRN MC SEE COMMENTS; Start 07/11/19 at 07:30; Stop 07/22/19 at 13:01; Status DC Metronidazole 100 ml @ 100 mls/hr Q6HRS IV Last administered on 07/27/19at 06:26; Start 07/11/19 at 08:30; Stop 07/27/19 at 09:58; Status DC Micafungin Sodium 100 mg/Dextrose 100 ml @ 100 mls/hr Q24H IV Last administered on 08/18/19at 08:18; Start 07/11/19 at 09:00; Stop 08/18/19 at 20:58; Status DC Propofol 0 ml @ As Directed STK-MED ONCE IV ; Start 07/11/19 at 07:53; Stop 07/11/19 at 07:53; Status DC Etomidate (Amidate) 20 mg STK-MED ONCE IV ; Start 07/11/19 at 07:53; Stop 07/11/19 at 07:54; Status DC Midazolam HCl (Versed) 5 mg STK-MED ONCE .ROUTE ; Start 07/11/19 at 07:57; Stop 07/11/19 at 07:57; Status DC Fentanyl Citrate 30 ml @ 0 mls/hr CONT PRN IV SEE PROTOCOL Last administered on 08/05/19at 06:12; Start 07/11/19 at 08:15; Stop 08/05/19 at 09:19; Status DC Artificial Tears (Artificial Tears) 1 drop PRN Q1HR PRN OU DRY EYE, 1st choice; Start 07/11/19 at 08:15; Stop 08/17/19 at 05:31; Status DC Midazolam HCl 50 mg/Sodium Chloride 50 ml @ 0 mls/hr CONT PRN IV SEE PROTOCOL Last administered on 07/14/19at 22:39; Start 07/11/19 at 08:15; Stop 07/16/19 at 15:59; Status DC Etomidate (Amidate) 8 mg 1X ONCE IV Last administered on 07/11/19at 08:33; Start 07/11/19 at 08:30; Stop 07/11/19 at 08:31; Status DC Succinylcholine Chloride (Anectine) 120 mg 1X ONCE IV Last administered on 07/11/19at 08:34; Start 07/11/19 at 08:30; Stop 07/11/19 at 08:31; Status DC Midazolam HCl (Versed) 5 mg 1X ONCE IV ; Start 07/11/19 at 08:30; Stop 07/11/19 at 08:31; Status DC Potassium Chloride 15 meq/ Bicarbonate Dialysis Soln w/ out KCl 5,007.5 ml @ 1,000 mls/ hr Q5H1M IV Last administered on 07/12/19at 11:11; Start 07/11/19 at 12:00; Stop 07/12/19 at 11:15; Status DC Potassium Chloride 15 meq/ Bicarbonate Dialysis Soln w/ out KCl 5,007.5 ml @ 1,000 mls/ hr Q5H1M IV Last administered on 07/12/19at 11:12; Start 07/11/19 at 12:00; Stop 07/12/19 at 11:17; Status DC Potassium Chloride 15 meq/ Bicarbonate Dialysis Soln w/ out KCl 5,007.5 ml @ 1,000 mls/ hr Q5H1M IV Last administered on 07/12/19at 11:11; Start 07/11/19 at 12:00; Stop 07/12/19 at 11:19; Status DC Sodium Chloride 90 meq/Potassium Chloride 15 meq/ Potassium Phosphate 10 mmol/ Magnesium Sulfate 10 meq/Calcium Gluconate 20 meq/ Multivitamins 10 ml/Chromium/ Copper/Manganese/ Seleni/Zn 0.5 ml/ Total Parenteral Nutrition/Amino Acids/Dextrose/ Fat Emulsion Intravenous 1,400 ml @ 58.333 mls/ hr TPN CONT IV Last administered on 07/11/19at 21:42; Start 07/11/19 at 22:00; Stop 07/12/19 at 21:59; Status DC Heparin Sodium (Porcine) (Heparin Sodium) 5,000 unit Q8HRS SQ Last administered on 07/16/19at 05:55; Start 07/11/19 at 15:00; Stop 07/16/19 at 13:28; Status DC Meropenem 500 mg/ Sodium Chloride 50 ml @ 100 mls/hr Q6HRS IV Last administered on 07/13/19at 06:00; Start 07/12/19 at 09:00; Stop 07/13/19 at 07 :29; Status DC Potassium Phosphate 20 mmol/ Sodium Chloride 106.6667 ml @ 51.667 m... 1X ONCE IV Last administered on 07/12/19at 11:22; Start 07/12/19 at 10:15; Stop 07/12/19 at 12:18; Status DC Acetaminophen (Tylenol Supp) 650 mg PRN Q6HRS PRN ND MILD PAIN / TEMP > 100.3'F Last administered on 11/28/19at 15:43; Start 07/12/19 at 10:30 Potassium Chloride/Water 100 ml @ 100 mls/hr Q1H IV Last administered on 07/12/19at 12:12; Start 07/12/19 at 11:00; Stop 07/12/19 at 12:59; Status DC Potassium Chloride 20 meq/ Bicarbonate Dialysis Soln w/ out KCl 5,010 ml @ 1,000 mls/hr Q5H1M IV Last administered on 07/13/19at 08:48; Start 07/12/19 at 12:00; Stop 07/13/19 at 13:03; Status DC Potassium Chloride 20 meq/ Bicarbonate Dialysis Soln w/ out KCl 5,010 ml @ 1 ,000 mls/hr Q5H1M IV Last administered on 07/17/19at 14:52; Start 07/12/19 at 11:30; Stop 07/17/19 at 19:59; Status DC Potassium Chloride 20 meq/ Bicarbonate Dialysis Soln w/ out KCl 5,010 ml @ 1,000 mls/hr Q5H1M IV Last administered on 07/17/19at 14:53; Start 07/12/19 at 11:30; Stop 07/17/19 at 19:59; Status DC Sodium Chloride 90 meq/Potassium Chloride 15 meq/ Potassium Phosphate 15 mmol/ Magnesium Sulfate 10 meq/Calcium Gluconate 15 meq/ Multivitamins 10 ml/Chromium/ Copper/Manganese/ Seleni/Zn 0.5 ml/ Total Parenteral Nutrition/Amino Acids/Dextrose/ Fat Emulsion Intravenous 1,400 ml @ 58.333 mls/ hr TPN CONT IV Last administered on 07/12/19at 22:17; Start 07/12/19 at 22:00; Stop 07/13/19 at 21:59; Status DC Cefepime HCl (Maxipime) 2 gm Q12HR IVP Last administered on 07/26/19at 20:56; Start 07/13/19 at 09:00; Stop 07/27/19 at 09:58; Status DC Daptomycin 500 mg/ Sodium Chloride 50 ml @ 100 mls/hr Q48H IV Last administered on 07/29/19at 09:57; Start 07/13/19 at 08:30; Stop 07/29/19 at 10:07; Status DC Lidocaine HCl (Buffered Lidocaine 1%) 3 ml 1X ONCE INJ Last administered on 07/13/19at 10:27; Start 07/13/19 at 10:30; Stop 07/13/19 at 10:31; Status DC Potassium Phosphate 20 mmol/ Sodium Chloride 106.6667 ml @ 51.667 m... 1X ONCE IV Last administered on 07/13/19at 12:51; Start 07/13/19 at 13:00; Stop 07/13/19 at 15:03; Status DC Sodium Chloride 90 meq/Potassium Chloride 15 meq/ Potassium Phosphate 18 mmol/ Magnesium Sulfate 8 meq/Calcium Gluconate 15 meq/ Multivitamins 10 ml/Chromium/ Copper/Manganese/ Seleni/Zn 0.5 ml/ Total Parenteral Nutrition/Amino Acids/Dextrose/ Fat Emulsion Intravenous 1,400 ml @ 58.333 mls/ hr TPN CONT IV Last administered on 07/13/19at 22:16; Start 07/13/19 at 22:00; Stop 07/14/19 at 21:59; Status DC Potassium Chloride 20 meq/ Bicarbonate Dialysis Soln w/ out KCl 5,010 ml @ 1,000 mls/hr Q5H1M IV Last administered on 07/17/19at 14:54; Start 07/13/19 at 16:00; Stop 07/17/19 at 19:59; Status DC Multi-Ingred Cream/Lotion/Oil/ Oint (Artificial Tears Eye Ointment) 1 ramu PRN Q1HR PRN OU DRY EYE, 2nd choice Last administered on 08/01/19at 08:19; Start 07/13/19 at 17:30; Stop 09/21/19 at 14:39; Status DC Sodium Chloride 90 meq/Potassium Chloride 15 meq/ Potassium Phosphate 18 mmol/ Magnesium Sulfate 8 meq/Calcium Gluconate 15 meq/ Multivitamins 10 ml/Chromium/ Copper/Manganese/ Seleni/Zn 0.5 ml/ Total Parenteral Nutrition/Amino Acids/Dextrose/ Fat Emulsion Intravenous 1,400 ml @ 58.333 mls/ hr TPN CONT IV Last administered on 07/14/19at 22:00; Start 07/14/19 at 22:00; Stop 07/15/19 at 21:59; Status DC Albumin Human 500 ml @ 125 mls/hr 1X ONCE IV ; Start 07/14/19 at 14:15; Stop 07/14/19 at 18:14; Status DC Sodium Chloride 90 meq/Potassium Chloride 15 meq/ Potassium Phosphate 18 mmol/ Magnesium Sulfate 8 meq/Calcium Gluconate 15 meq/ Multivitamins 10 ml/Chromium/ Copper/Manganese/ Seleni/Zn 0.5 ml/ Insulin Human Regular 10 unit/ Total Parenteral Nutrition/Amino Acids/Dextrose/ Fat Emulsion Intravenous 1,400 ml @ 58.333 mls/ hr TPN CONT IV Last administered on 07/15/19at 21:43; Start 07/15/19 at 22:00; Stop 07/16/19 at 21:59; Status DC Lidocaine HCl (Buffered Lidocaine 1%) 3 ml STK-MED ONCE .ROUTE ; Start 07/13/19 at 10:00; Stop 07/15/19 at 13:57; Status DC Midazolam HCl 100 mg/Sodium Chloride 100 ml @ 7 mls/hr CONT PRN IV SEE PROTOCOL Last administered on 07/27/19at 15:35; Start 07/16/19 at 16:00; Stop 09/21/19 at 14:38; Status DC Sodium Chloride 90 meq/Potassium Chloride 15 meq/ Potassium Phosphate 18 mmol/ Magnesium Sulfate 8 meq/Calcium Gluconate 15 meq/ Multivitamins 10 ml/Chromium/ Copper/Manganese/ Seleni/Zn 0.5 ml/ Insulin Human Regular 15 unit/ Total Parenteral Nutrition/Amino Acids/Dextrose/ Fat Emulsion Intravenous 1,400 ml @ 58.333 mls/ hr TPN CONT IV Last administered on 07/16/19at 20:34; Start 07/16/19 at 22:00; Stop 07/17/19 at 21:59; Status DC Info (Icu Electrolyte Protocol) 1 ea CONT PRN PRN MC PER PROTOCOL; Start 07/17/19 at 13:15 Sodium Chloride 90 meq/Potassium Chloride 15 meq/ Potassium Phosphate 18 mmol/ Magnesium Sulfate 8 meq/Calcium Gluconate 15 meq/ Multivitamins 10 ml/Chromium/ Copper/Manganese/ Seleni/Zn 0.5 ml/ Insulin Human Regular 15 unit/ Total Parenteral Nutrition/Amino Acids/Dextrose/ Fat Emulsion Intravenous 1,400 ml @ 58.333 mls/ hr TPN CONT IV Last administered on 07/17/19at 22:05; Start at 22:00; Stop 07/18/19 at 21:59; Status DC Potassium Chloride 15 meq/ Bicarbonate Dialysis Soln w/ out KCl 5,007.5 ml @ 1,000 mls/ hr Q5H1M IV Last administered on 07/20/19at 18:14; Start 07/17/19 at 20:00; Stop 07/21/19 at 13:08; Status DC Potassium Chloride 15 meq/ Bicarbonate Dialysis Soln w/ out KCl 5,007.5 ml @ 1,000 mls/ hr Q5H1M IV Last administered on 07/20/19at 18:14; Start 07/17/19 at 20:00; Stop 07/21/19 at 13:08; Status DC Potassium Chloride 15 meq/ Bicarbonate Dialysis Soln w/ out KCl 5,007.5 ml @ 1,000 mls/ hr Q5H1M IV Last administered on 07/20/19at 18:14; Start 07/17/19 at 20:00; Stop 07/21/19 at 13:08; Status DC Iohexol (Omnipaque 240 Mg/ml) 30 ml 1X ONCE PO Last administered on 07/18/19at 11:30; Start 07/18/19 at 11:30; Stop 07/18/19 at 11:33; Status DC Info (CONTRAST GIVEN -- Rx MONITORING) 1 each PRN DAILY PRN MC SEE COMMENTS; Start 07/18/19 at 11:45; Stop 07/20/19 at 11:44; Status DC Sodium Chloride 90 meq/Potassium Chloride 15 meq/ Potassium Phosphate 18 mmol/ Magnesium Sulfate 8 meq/Calcium Gluconate 15 meq/ Multivitamins 10 ml/Chromium/ Copper/Manganese/ Seleni/Zn 0.5 ml/ Insulin Human Regular 15 unit/ Total Parenteral Nutrition/Amino Acids/Dextrose/ Fat Emulsion Intravenous 1,400 ml @ 58.333 mls/ hr TPN CONT IV Last administered on 07/18/19at 21:47; Start 07/18/19 at 22:00; Stop 07/19/19 at 21:59; Status DC Sodium Chloride 90 meq/Potassium Chloride 15 meq/ Potassium Phosphate 18 mmol/ Magnesium Sulfate 8 meq/Calcium Gluconate 15 meq/ Multivitamins 10 ml/Chromium/ Copper/Manganese/ Seleni/Zn 0.5 ml/ Insulin Human Regular 20 unit/ Total Parenteral Nutrition/Amino Acids/Dextrose/ Fat Emulsion Intravenous 1,400 ml @ 58.333 mls/ hr TPN CONT IV Last administered on 07/19/19at 21:36; Start 07/19/19 at 22:00; Stop 07/20/19 at 21:59; Status DC Alteplase, Recombinant (Cathflo For Central Catheter Clearance) 1 mg 1X ONCE INT CAT Last administered on 07/19/19at 20:03; Start 07/19/19 at 19:30; Stop 07/19/19 at 19:46; Status DC Alteplase, Recombinant (Cathflo For Central Catheter Clearance) 1 mg 1X ONCE INT CAT Last administered on 07/19/19at 22:05; Start 07/19/19 at 22:00; Stop 07/19/19 at 22:01; Status DC Sodium Chloride 90 meq/Potassium Chloride 15 meq/ Potassium Phosphate 18 mmol/ Magnesium Sulfate 8 meq/Calcium Gluconate 15 meq/ Multivitamins 10 ml/Chromium/ Copper/Manganese/ Seleni/Zn 0.5 ml/ Insulin Human Regular 20 unit/ Total Parenteral Nutrition/Amino Acids/Dextrose/ Fat Emulsion Intravenous 1,400 ml @ 58.333 mls/ hr TPN CONT IV Last administered on 07/20/19at 21:30; Start 07/20/19 at 22:00; Stop 07/21/19 at 21:59; Status DC Dexmedetomidine HCl 400 mcg/ Sodium Chloride 100 ml @ 0 mls/hr CONT PRN IV ANXIETY / AGITATION Last administered on 09/17/19at 12:57; Start 07/21/19 at 08:15; Stop 09/17/19 at 18:31; Status DC Sodium Chloride 500 ml @ 500 mls/hr 1X PRN PRN IV ELEVATED BP, SEE COMMENTS; Start 07/21/19 at 08:15; Stop 11/23/19 at 09:08; Status DC Atropine Sulfate (ATROPINE 0.5mg SYRINGE) 0.5 mg PRN Q5MIN PRN IV SEE COMMENTS; Start 07/21/19 at 08:15; Stop 11/21/19 at 09:45; Status DC Furosemide (Lasix) 20 mg 1X ONCE IVP Last administered on 07/21/19at 08:19; Start 07/21/19 at 08:15; Stop 07/21/19 at 08:16; Status DC Lidocaine HCl (Buffered Lidocaine 1%) 3 ml STK-MED ONCE .ROUTE ; Start 07/21/19 at 08:39; Stop 07/21/19 at 08:39; Status DC Lidocaine HCl (Buffered Lidocaine 1%) 6 ml 1X ONCE INJ Last administered on 07/21/19at 09:05; Start 07/21/19 at 09:00; Stop 07/21/19 at 09:06; Status DC Sodium Chloride 90 meq/Potassium Chloride 15 meq/ Potassium Phosphate 18 mmol/ Magnesium Sulfate 8 meq/Calcium Gluconate 15 meq/ Multivitamins 10 ml/Chromium/ Copper/Manganese/ Seleni/Zn 0.5 ml/ Insulin Human Regular 20 unit/ Total Parenteral Nutrition/Amino Acids/Dextrose/ Fat Emulsion Intravenous 1,400 ml @ 58.333 mls/ hr TPN CONT IV Last administered on 07/21/19at 22:45; Start 07/21/19 at 22:00; Stop 07/22/19 at 21:59; Status DC Sodium Chloride 1,000 ml @ 1,000 mls/hr Q1H PRN IV hypotension; Start 07/22/19 at 07:30; Stop 07/22/19 at 13:29; Status DC Albumin Human 200 ml @ 200 mls/hr 1X PRN PRN IV Hypotension Last administered on 07/22/19at 09:36; Start 07/22/19 at 07:30; Stop 07/22/19 at 13:29; Status DC Sodium Chloride (Normal Saline Flush) 10 ml 1X PRN PRN IV AP catheter pack; Start 07/22/19 at 07:30; Stop 07/22/19 at 21:29; Status DC Sodium Chloride (Normal Saline Flush) 10 ml 1X PRN PRN IV POWDER CARRIER catheter pack; Start 07/22/19 at 07:30; Stop 07/23/19 at 07:29; Status DC Sodium Chloride 1,000 ml @ 400 mls/hr Q2H30M PRN IV PATENCY; Start 07/22/19 at 07:30; Stop 07/22/19 at 19:29; Status DC Info (PHARMACY MONITORING -- do not chart) 1 each PRN DAILY PRN MC SEE COMMENTS; Start 07/22/19 at 07:30; Stop 07/22/19 at 13:02; Status DC Info (PHARMACY MONITORING -- do not chart) 1 each PRN DAILY PRN MC SEE COMMENTS; Start 07/22/19 at 07:30; Stop 07/24/19 at 12:45; Status DC Sodium Chloride 90 meq/Potassium Chloride 15 meq/ Potassium Phosphate 10 mmol/ Magnesium Sulfate 8 meq/Calcium Gluconate 15 meq/ Multivitamins 10 ml/Chromium/ Copper/Manganese/ Seleni/Zn 0.5 ml/ Insulin Human Regular 25 unit/ Total Parenteral Nutrition/Amino Acids/Dextrose/ Fat Emulsion Intravenous 1,400 ml @ 58.333 mls/ hr TPN CONT IV Last administered on 07/22/19at 22:19; Start 07/22/19 at 22:00; Stop 07/23/19 at 21:59; Status DC Heparin Sodium (Porcine) (Heparin Sodium) 5,000 unit Q12HR SQ Last administered on 08/14/19at 08:59; Start 07/22/19 at 21:00; Stop 08/14/19 at 10:05; Status DC Ondansetron HCl (Zofran) 4 mg PRN Q6HRS PRN IV NAUSEA/VOMITING; Start 07/25/19 at 07:00; Stop 07/26/19 at 06:59; Status DC Fentanyl Citrate (Fentanyl 2ml Vial) 25 mcg PRN Q5MIN PRN IV MILD PAIN 1-3; Start 07/25/19 at 07:00; Stop 07/26/19 at 06:59; Status DC Fentanyl Citrate (Fentanyl 2ml Vial) 50 mcg PRN Q5MIN PRN IV MODERATE TO SEVERE PAIN; Start 07/25/19 at 07:00; Stop 07/26/19 at 06:59; Status DC Ringer's Solution 1,000 ml @ 30 mls/hr Q24H IV ; Start 07/25/19 at 07:00; Stop 07/25/19 at 18:59; Status DC Lidocaine HCl (Xylocaine-Mpf 1% 2ml Vial) 2 ml PRN 1X PRN ID PRIOR TO IV START; Start 07/25/19 at 07:00; Stop 07/26/19 at 06:59; Status DC Prochlorperazine Edisylate (Compazine) 5 mg PACU PRN PRN IV NAUSEA, MRX1; Start 07/25/19 at 07:00; Stop 07/26/19 at 06:59; Status DC Sodium Chloride 1,000 ml @ 1,000 mls/hr Q1H PRN IV hypotension; Start 07/23/19 at 09:10; Stop 07/23/19 at 15:09; Status DC Albumin Human 200 ml @ 200 mls/hr 1X PRN PRN IV Hypotension Last administered on 07/23/19at 10:10; Start 07/23/19 at 09:15; Stop 07/23/19 at 15:14; Status DC Sodium Chloride 1,000 ml @ 400 mls/hr Q2H30M PRN IV PATENCY; Start 07/23/19 at 09:10; Stop 07/23/19 at 21:09; Status DC Info (PHARMACY MONITORING -- do not chart) 1 each PRN DAILY PRN MC SEE COMMENTS; Start 07/23/19 at 09:15; Stop 07/24/19 at 12:45; Status DC Info (PHARMACY MONITORING -- do not chart) 1 each PRN DAILY PRN MC SEE COMMENTS; Start 07/23/19 at 09:15; Stop 07/24/19 at 12:45; Status DC Sodium Chloride 90 meq/Potassium Chloride 15 meq/ Potassium Phosphate 10 mmol/ Magnesium Sulfate 8 meq/Calcium Gluconate 15 meq/ Multivitamins 10 ml/Chromium/ Copper/Manganese/ Seleni/Zn 0.5 ml/ Insulin Human Regular 25 unit/ Total P arenteral Nutrition/Amino Acids/Dextrose/ Fat Emulsion Intravenous 1,400 ml @ 58.333 mls/ hr TPN CONT IV Last administered on 07/23/19at 22:10; Start 07/23/19 at 22:00; Stop 07/24/19 at 21:59; Status DC Magnesium Sulfate 50 ml @ 25 mls/hr PRN DAILY PRN IV for Mag < 1.7 on am labs Last administered on 10/06/19at 10:57; Start 07/24/19 at 09:15 Sodium Chloride 90 meq/Potassium Chloride 15 meq/ Potassium Phosphate 10 mmol/ Magnesium Sulfate 8 meq/Calcium Gluconate 15 meq/ Multivitamins 10 ml/Chromium/ Copper/Manganese/ Seleni/Zn 0.5 ml/ Insulin Human Regular 25 unit/ Total Parenteral Nutrition/Amino Acids/Dextrose/ Fat Emulsion Intravenous 1,400 ml @ 58.333 mls/ hr TPN CONT IV Last administered on 07/24/19at 21:20; Start 07/24/19 at 22:00; Stop 07/25/19 at 21:59; Status DC Sodium Chloride 1,000 ml @ 1,000 mls/hr Q1H PRN IV hypotension; Start 07/24/19 at 12:23; Stop 07/24/19 at 18:22; Status DC Albumin Human 200 ml @ 200 mls/hr 1X ONCE IV Last administered on 07/24/19at 13:34; Start 07/24/19 at 12:30; Stop 07/24/19 at 13:29; Status DC Diphenhydramine HCl (Benadryl) 25 mg 1X PRN PRN IV ITCHING; Start 07/24/19 at 12:30; Stop 07/25/19 at 12:29; Status DC Diphenhydramine HCl (Benadryl) 25 mg 1X PRN PRN IV ITCHING; Start 07/24/19 at 12:30; Stop 07/25/19 at 12:29; Status DC Info (PHARMACY MONITORING -- do not chart) 1 each PRN DAILY PRN MC SEE COMMENTS; Start 07/24/19 at 12:30; Status Cancel Bupivacaine HCl/ Epinephrine Bitart (Sensorcain-Epi 0.5%-1:080221 Mpf) 30 ml STK-MED ONCE .ROUTE Last administered on 07/25/19at 11:44; Start 07/25/19 at 11:00; Stop 07/25/19 at 11:01; Status DC Cellulose (Surgicel Fibrillar 1x2) 1 each STK-MED ONCE .ROUTE ; Start 07/25/19 at 11:00; Stop 07/25/19 at 11:01; Status DC Sodium Chloride 90 meq/Potassium Chloride 15 meq/ Potassium Phosphate 10 mmol/ Magnesium Sulfate 12 meq/Calcium Gluconate 15 meq/ Multivitamins 10 ml/Chromium/ Copper/Manganese/ Seleni/Zn 0.5 ml/ Insulin Human Regular 25 unit/ Total Parenteral Nutrition/Amino Acids/Dextrose/ Fat Emulsion Intravenous 1,400 ml @ 58.333 mls/ hr TPN CONT IV Last administered on 07/25/19at 22:24; Start 07/25/19 at 22:00; Stop 07/26/19 at 21:59; Status DC Propofol 20 ml @ As Directed STK-MED ONCE IV ; Start 07/25/19 at 11:07; Stop 07/25/19 at 11:07; Status DC Cellulose (Surgicel Hemostat 4x8) 1 each STK-MED ONCE .ROUTE Last administered on 07/25/19at 11:44; Start 07/25/19 at 11:55; Stop 07/25/19 at 11:56; Status DC Sevoflurane (Ultane) 60 ml STK-MED ONCE IH ; Start 07/25/19 at 12:46; Stop 07/25/19 at 12:46; Status DC Sodium Chloride 1,000 ml @ 1,000 mls/hr Q1H PRN IV hypotension; Start 07/25/19 at 13:51; Stop 07/25/19 at 19:50; Status DC Albumin Human 200 ml @ 200 mls/hr 1X PRN PRN IV Hypotension Last administered on 07/25/19at 14:51; Start 07/25/19 at 14:00; Stop 07/25/19 at 19:59; Status DC Diphenhydramine HCl (Benadryl) 25 mg 1X PRN PRN IV ITCHING; Start 07/25/19 at 14:00; Stop 07/26/19 at 13:59; Status DC Diphenhydramine HCl (Benadryl) 25 mg 1X PRN PRN IV ITCHING; Start 07/25/19 at 14:00; Stop 07/26/19 at 13:59; Status DC Sodium Chloride 1,000 ml @ 400 mls/hr Q2H30M PRN IV PATENCY; Start 07/25/19 at 13:51; Stop 07/26/19 at 01:50; Status DC Info (PHARMACY MONITORING -- do not chart) 1 each PRN DAILY PRN MC SEE COMMENTS; Start 07/25/19 at 14:00; Stop 07/28/19 at 08:16; Status DC Heparin Sodium (Porcine) (Hep Lock Adult) 500 unit STK-MED ONCE IVP ; Start 07/26/19 at 09:29; Stop 07/26/19 at 09:30; Status DC Sodium Chloride 1,000 ml @ 1,000 mls/hr Q1H PRN IV hypotension; Start 07/26/19 at 10:43; Stop 07/26/19 at 16:42; Status DC Sodium Chloride 1,000 ml @ 400 mls/hr Q2H30M PRN IV PATENCY; Start 07/26/19 at 10:43; Stop 07/26/19 at 22:42; Status DC Info (PHARMACY MONITORING -- do not chart) 1 each PRN DAILY PRN MC SEE COMMENTS; Start 07/26/19 at 10:45; Status UNV Info (PHARMACY MONITORING -- do not chart) 1 each PRN DAILY PRN MC SEE COMMENTS; Start 07/26/19 at 10:45; Status UNV Sodium Chloride 90 meq/Potassium Chloride 15 meq/ Magnesium Sulfate 12 meq/Calcium Gluconate 15 meq/ Multivitamins 10 ml/Chromium/ Copper/Manganese/ Seleni/Zn 0.5 ml/ Insulin Human Regular 25 unit/ Total Parenteral Nutrition/Amino Acids/Dextrose/ Fat Emulsion Intravenous 1,400 ml @ 58.333 mls/ hr TPN CONT IV Last administered on 07/26/19at 22:13; Start 07/26/19 at 22:00; Stop 07/27/19 at 21:59; Status DC Sodium Chloride 1,000 ml @ 1,000 mls/hr Q1H PRN IV hypotension; Start 07/27/19 at 07:50; Stop 07/27/19 at 13:49; Status DC Albumin Human 200 ml @ 200 mls/hr 1X ONCE IV ; Start 07/27/19 at 08:00; Stop 07/27/19 at 08:53; Status DC Diphenhydramine HCl (Benadryl) 25 mg 1X PRN PRN IV ITCHING; Start 07/27/19 at 08:00; Stop 07/28/19 at 07:59; Status DC Diphenhydramine HCl (Benadryl) 25 mg 1X PRN PRN IV ITCHING; Start 07/27/19 at 08:00; Stop 07/28/19 at 07:59; Status DC Info (PHARMACY MONITORING -- do not chart) 1 each PRN DAILY PRN MC SEE COMMENTS; Start 07/27/19 at 08:00; Stop 07/28/19 at 08:16; Status DC Albumin Human 50 ml @ 50 mls/hr 1X ONCE IV ; Start 07/27/19 at 08:53; Stop 07/27/19 at 08:56; Status DC Albumin Human 200 ml @ 50 mls/hr PRN 1X PRN IV HYPOTENSION Last administered on 08/02/19at 11:54; Start 07/27/19 at 09:00; Stop 09/08/19 at 11:14; Status DC Meropenem 500 mg/ Sodium Chloride 50 ml @ 100 mls/hr Q12H IV Last administered on 08/16/19at 10:45; Start 07/27/19 at 10:00; Stop 08/16/19 at 12:37; Status DC Sodium Chloride 90 meq/Magnesium Sulfate 12 meq/ Calcium Gluconate 15 meq/ Multivitamins 10 ml/Chromium/ Copper/Manganese/ Seleni/Zn 0.5 ml/ Insulin Human Regular 25 unit/ Total Parenteral Nutrition/Amino Acids/Dextrose/ Fat Emulsion Intravenous 1,400 ml @ 58.333 mls/ hr TPN CONT IV Last administered on 07/27/19at 21:41; Start 07/27/19 at 22:00; Stop 07/28/19 at 21:59; Status DC Sodium Chloride 1,000 ml @ 1,000 mls/hr Q1H PRN IV hypotension; Start 07/28/19 at 07:58; Stop 07/28/19 at 13:57; Status DC Albumin Human 200 ml @ 200 mls/hr 1X PRN PRN IV Hypotension Last administered on 07/28/19at 09:30; Start 07/28/19 at 08:00; Stop 07/28/19 at 13:59; Status DC Sodium Chloride 1,000 ml @ 400 mls/hr Q2H30M PRN IV PATENCY; Start 07/28/19 at 07:58; Stop 07/28/19 at 19:57; Status DC Info (PHARMACY MONITORING -- do not chart) 1 each PRN DAILY PRN MC SEE COMMENTS; Start 07/28/19 at 08:00; Status Cancel Info (PHARMACY MONITORING -- do not chart) 1 each PRN DAILY PRN MC SEE COMMENTS; Start 07/28/19 at 08:15; Status UNV Sodium Chloride 90 meq/Potassium Phosphate 5 mmol/ Magnesium Sulfate 12 meq/Calcium Gluconate 15 meq/ Multivitamins 10 ml/Chromium/ Copper/Manganese/ Seleni/Zn 0.5 ml/ Insulin Human Regular 30 unit/ Total Parenteral Nutrition/Amino Acids/Dextrose/ Fat Emulsion Intravenous 1,400 ml @ 58.333 mls/ hr TPN CONT IV Last administered on 07/28/19at 22:08; Start 07/28/19 at 22:00; Stop 07/29/19 at 21:59; Status DC Linezolid/Dextrose 300 ml @ 300 mls/hr Q12HR IV Last administered on 08/08/19at 20:40; Start 07/29/19 at 11:00; Stop 08/09/19 at 08:10; Status DC Sodium Chloride 90 meq/Potassium Phosphate 15 mmol/ Magnesium Sulfate 12 meq/Calcium Gluconate 15 meq/ Multivitamins 10 ml/Chromium/ Copper/Manganese/ Seleni/Zn 0.5 ml/ Insulin Human Regular 30 unit/ Total Parenteral Nutrition/Amino Acids/Dextrose/ Fat Emulsion Intravenous 1,400 ml @ 58.333 mls/ hr TPN CONT IV Last administered on 07/29/19at 21:49; Start 07/29/19 at 22:00; Stop 07/30/19 at 21:59; Status DC Sodium Chloride 90 meq/Potassium Phosphate 15 mmol/ Magnesium Sulfate 12 meq/Calcium Gluconate 15 meq/ Multivitamins 10 ml/Chromium/ Copper/Manganese/ Seleni/Zn 0.5 ml/ Insulin Human Regular 40 unit/ Total Parenteral Nutrition/Amino Acids/Dextrose/ Fat Emulsion Intravenous 1,400 ml @ 58.333 mls/ hr TPN CONT IV Last administered on 07/30/19at 21:21; Start 07/30/19 at 22:00; Stop 07/31/19 at 21:59; Status DC Sodium Chloride 1,000 ml @ 1,000 mls/hr Q1H PRN IV hypotension; Start 07/30/19 at 13:26; Stop 07/30/19 at 19:25; Status DC Albumin Human 200 ml @ 200 mls/hr 1X PRN PRN IV Hypotension Last administered on 07/30/19at 15:00; Start 07/30/19 at 13:30; Stop 07/30/19 at 19:29; Status DC Sodium Chloride (Normal Saline Flush) 10 ml 1X PRN PRN IV AP catheter pack; Start 07/30/19 at 13:30; Stop 07/31/19 at 13:29; Status DC Sodium Chloride (Normal Saline Flush) 10 ml 1X PRN PRN IV POWDER CARRIER catheter pack; Start 07/30/19 at 13:30; Stop 07/31/19 at 13:29; Status DC Sodium Chloride 1,000 ml @ 400 mls/hr Q2H30M PRN IV PATENCY; Start 07/30/19 at 13:26; Stop 07/31/19 at 01:25; Status DC Info (PHARMACY MONITORING -- do not chart) 1 each PRN DAILY PRN MC SEE COMMENTS; Start 07/30/19 at 13:30; Stop 07/30/19 at 13:33; Status DC Info (PHARMACY MONITORING -- do not chart) 1 each PRN DAILY PRN MC SEE COMMENTS; Start 07/30/19 at 13:30; Stop 07/30/19 at 13:34; Status DC Sodium Chloride 90 meq/Potassium Phosphate 19 mmol/ Magnesium Sulfate 12 meq/Calcium Gluconate 15 meq/ Multivitamins 10 ml/Chromium/ Copper/Manganese/ Seleni/Zn 0.5 ml/ Insulin Human Regular 40 unit/ Total Parenteral Nutrition/Amino Acids/Dextrose/ Fat Emulsion Intravenous 1,400 ml @ 58.333 mls/ hr TPN CONT IV Last administered on 07/31/19at 21:54; Start 07/31/19 at 22:00; Stop 08/01/19 at 21:59; Status DC Sodium Chloride 1,000 ml @ 1,000 mls/hr Q1H PRN IV hypotension; Start 08/01/19 at 09:35; Stop 08/01/19 at 15:34; Status DC Albumin Human 200 ml @ 200 mls/hr 1X PRN PRN IV Hypotension; Start 08/01/19 at 09:45; Stop 08/01/19 at 15:44; Status DC Diphenhydramine HCl (Benadryl) 25 mg 1X PRN PRN IV ITCHING; Start 08/01/19 at 09:45; Stop 08/02/19 at 09:44; Status DC Diphenhydramine HCl (Benadryl) 25 mg 1X PRN PRN IV ITCHING; Start 08/01/19 at 09:45; Stop 08/02/19 at 09:44; Status DC Sodium Chloride 1,000 ml @ 400 mls/hr Q2H30M PRN IV PATENCY; Start 08/01/19 at 09:35; Stop 08/01/19 at 21:34; Status DC Info (PHARMACY MONITORING -- do not chart) 1 each PRN DAILY PRN MC SEE COMMENTS; Start 08/01/19 at 09:45; Status Cancel Sodium Chloride 100 meq/Potassium Phosphate 19 mmol/ Magnesium Sulfate 12 meq/Calcium Gluconate 15 meq/ Multivitamins 10 ml/Chromium/ Copper/Manganese/ Seleni/Zn 0.5 ml/ Insulin Human Regular 40 unit/ Potassium Chloride 20 meq/ Total Parenteral Nutrition/Amino Acids/Dextrose/ Fat Emulsion Intravenous 1,400 ml @ 58.333 mls/ hr TPN CONT IV Last administered on 08/01/19at 22:02; Start 08/01/19 at 22:00; Stop 08/02/19 at 21:59; Status DC Furosemide (Lasix) 40 mg 1X ONCE IVP Last administered on 08/01/19at 14:39; Start 08/01/19 at 14:30; Stop 08/01/19 at 14:31; Status DC Metronidazole 100 ml @ 100 mls/hr Q8HRS IV Last administered on 08/09/19at 06:04; Start 08/02/19 at 10:00; Stop 08/09/19 at 08:10; Status DC Sodium Chloride 1,000 ml @ 1,000 mls/hr Q1H PRN IV hypotension; Start 08/02/19 at 08:00; Stop 08/02/19 at 13:59; Status DC Albumin Human 200 ml @ 200 mls/hr 1X PRN PRN IV Hypotension; Start 08/02/19 at 08:00; Stop 08/02/19 at 13:59; Status DC Sodium Chloride 1,000 ml @ 400 mls/hr Q2H30M PRN IV PATENCY; Start 08/02/19 at 08:00; Stop 08/02/19 at 19:59; Status DC Info (PHARMACY MONITORING -- do not chart) 1 each PRN DAILY PRN MC SEE COMMENTS; Start 08/02/19 at 11:30; Status UNV Info (PHARMACY MONITORING -- do not chart) 1 each PRN DAILY PRN MC SEE COMMENTS; Start 08/02/19 at 11:30; Stop 08/04/19 at 12:13; Status DC Sodium Chloride 100 meq/Potassium Phosphate 19 mmol/ Magnesium Sulfate 12 meq/Calcium Gluconate 15 meq/ Multivitamins 10 ml/Chromium/ Copper/Manganese/ Seleni/Zn 0.5 ml/ Insulin Human Regular 40 unit/ Potassium Chloride 20 meq/ Total Parenteral Nutrition/Amino Acids/Dextrose/ Fat Emulsion Intravenous 1,400 ml @ 58.333 mls/ hr TPN CONT IV Last administered on 08/02/19at 21:52; Start 08/02/19 at 22:00; Stop 08/03/19 at 21:59; Status DC Sodium Chloride (Normal Saline Flush) 10 ml QSHIFT PRN IV AFTER MEDS AND BLOOD DRAWS; Start 08/02/19 at 15:00; Stop 08/30/19 at 11:27; Status DC Sodium Chloride (Normal Saline Flush) 10 ml PRN Q5MIN PRN IV AFTER MEDS AND BLOOD DRAWS; Start 08/02/19 at 15:00; Stop 11/19/19 at 10:12; Status DC Sodium Chloride (Normal Saline Flush) 20 ml PRN Q5MIN PRN IV AFTER MEDS AND BLOOD DRAWS; Start 08/02/19 at 15:00 Sodium Chloride 100 meq/Potassium Phosphate 19 mmol/ Magnesium Sulfate 12 meq/Calcium Gluconate 15 meq/ Multivitamins 10 ml/Chromium/ Copper/Manganese/ Seleni/Zn 0.5 ml/ Insulin Human Regular 40 unit/ Potassium Chloride 20 meq/ Total Parenteral Nutrition/Amino Acids/Dextrose/ Fat Emulsion Intravenous 1,400 ml @ 58.333 mls/ hr TPN CONT IV Last administered on 08/03/19at 21:20; Start 08/03/19 at 22:00; Stop 08/04/19 at 21:59; Status DC Lidocaine HCl (Buffered Lidocaine 1%) 3 ml STK-MED ONCE .ROUTE ; Start 08/03/19 at 13:16; Stop 08/03/19 at 13:16; Status DC Lidocaine HCl (Buffered Lidocaine 1%) 6 ml 1X ONCE INJ Last administered on 08/03/19at 13:45; Start 08/03/19 at 13:30; Stop 08/03/19 at 13:31; Status DC Albumin Human 100 ml @ 100 mls/hr 1X ONCE IV Last administered on 08/03/19at 15:41; Start 08/03/19 at 15:00; Stop 08/03/19 at 15:59; Status DC Albumin Human 50 ml @ 50 mls/hr 1X ONCE IV Last administered on 08/03/19at 15:00; Start 08/03/19 at 15:00; Stop 08/03/19 at 15:59; Status DC Info (PHARMACY MONITORING -- do not chart) 1 each PRN DAILY PRN MC SEE COMMENTS; Start 08/04/19 at 11:30; Status Cancel Info (PHARMACY MONITORING -- do not chart) 1 each PRN DAILY PRN MC SEE COMMENTS; Start 08/04/19 at 11:30; Status UNV Sodium Chloride 100 meq/Potassium Phosphate 10 mmol/ Magnesium Sulfate 12 meq/Calcium Gluconate 15 meq/ Multivitamins 10 ml/Chromium/ Copper/Manganese/ Seleni/Zn 0.5 ml/ Insulin Human Regular 35 unit/ Potassium Chloride 20 meq/ Total Parenteral Nutrition/Amino Acids/Dextrose/ Fat Emulsion Intravenous 1,400 ml @ 58.333 mls/ hr TPN CONT IV Last administered on 08/04/19at 22:10; Start 08/04/19 at 22:00; Stop 08/05/19 at 21:59; Status DC Sodium Chloride 100 meq/Potassium Phosphate 5 mmol/ Magnesium Sulfate 12 meq/Calcium Gluconate 15 meq/ Multivitamins 10 ml/Chromium/ Copper/Manganese/ Seleni/Zn 0.5 ml/ Insulin Human Regular 35 unit/ Potassium Chloride 20 meq/ Total Parenteral Nutrition/Amino Acids/Dextrose/ Fat Emulsion Intravenous 1,400 ml @ 58.333 mls/ hr TPN CONT IV Last administered on 08/05/19at 22:59; Start 08/05/19 at 22:00; Stop 08/06/19 at 21:59; Status DC Sodium Chloride 1,000 ml @ 1,000 mls/hr Q1H PRN IV hypotension; Start 08/06/19 at 08:27; Stop 08/06/19 at 14:26; Status DC Albumin Human 200 ml @ 200 mls/hr 1X PRN PRN IV Hypotension Last administered on 08/06/19at 09:18; Start 08/06/19 at 08:30; Stop 08/06/19 at 14:29; Status DC Sodium Chloride 1,000 ml @ 400 mls/hr Q2H30M PRN IV PATENCY; Start 08/06/19 at 08:27; Stop 08/06/19 at 20:26; Status DC Info (PHARMACY MONITORING -- do not chart) 1 each PRN DAILY PRN MC SEE COMMENTS; Start 08/06/19 at 08:30; Status Cancel Info (PHARMACY MONITORING -- do not chart) 1 each PRN DAILY PRN MC SEE COMMENTS; Start 08/06/19 at 08:30; Stop 08/14/19 at 13:10; Status DC Sodium Chloride 100 meq/Potassium Chloride 40 meq/ Magnesium Sulfate 15 meq/Calcium Gluconate 15 meq/ Multivitamins 10 ml/Chromium/ Copper/Manganese/ Seleni/Zn 0.5 ml/ Insulin Human Regular 35 unit/ Total Parenteral Nutrition/Amino Acids/Dextrose/ Fat Emulsion Intravenous 1,400 ml @ 58.333 mls/ hr TPN CONT IV Last administered on 08/06/19at 22:00; Start 08/06/19 at 22:00; Stop 08/07/19 at 21:59; Status DC Potassium Chloride/Water 100 ml @ 100 mls/hr 1X ONCE IV Last administered on 08/06/19at 17:28; Start 08/06/19 at 14:45; Stop 08/06/19 at 15:44; Status DC Sodium Chloride 100 meq/Potassium Chloride 40 meq/ Magnesium Sulfate 15 meq/Calcium Gluconate 15 meq/ Multivitamins 10 ml/Chromium/ Copper/Manganese/ Seleni/Zn 0.5 ml/ Insulin Human Regular 35 unit/ Total Parenteral Nutrition/Amino Acids/Dextrose/ Fat Emulsion Intravenous 1,400 ml @ 58.333 mls/ hr TPN CONT IV Last administered on 08/07/19at 22:46; Start 08/07/19 at 22:00; Stop 08/08/19 at 21:59; Status DC Sodium Chloride 100 meq/Potassium Chloride 40 meq/ Magnesium Sulfate 20 meq/Calcium Gluconate 15 meq/ Multivitamins 10 ml/Chromium/ Copper/Manganese/ Se dinorah/Zn 0.5 ml/ Insulin Human Regular 35 unit/ Total Parenteral Nutrition/Amino Acids/Dextrose/ Fat Emulsion Intravenous 1,400 ml @ 58.333 mls/ hr TPN CONT IV Last administered on 08/08/19at 22:31; Start 08/08/19 at 22:00; Stop 08/09/19 at 21:59; Status DC Fentanyl Citrate (Fentanyl 2ml Vial) 50 mcg PRN Q2HR PRN IVP PAIN Last administered on 08/15/19at 13:32; Start 08/08/19 at 21:00; Stop 08/16/19 at 12:53; Status DC Fentanyl Citrate (Fentanyl 2ml Vial) 25 mcg PRN Q2HR PRN IVP PAIN; Start 08/08/19 at 21:00; Stop 08/16/19 at 12:54; Status DC Enoxaparin Sodium (Lovenox 100mg Syringe) 100 mg Q12HR SQ ; Start 08/09/19 at 21:00; Status UNV Amino Acids/ Glycerin/ Electrolytes 1,000 ml @ 75 mls/hr [id number] IV ; Start 08/08/19 at 21:15; Status UNV Sodium Chloride 1,000 ml @ 1,000 mls/hr Q1H PRN IV hypotension; Start 08/09/19 at 07:56; Stop 08/09/19 at 13:55; Status DC Albumin Human 200 ml @ 200 mls/hr 1X PRN PRN IV Hypotension Last administered on 08/09/19at 08:40; Start 08/09/19 at 08:00; Stop 08/09/19 at 13:59; Status DC Sodium Chloride 1,000 ml @ 400 mls/hr Q2H30M PRN IV PATENCY; Start 08/09/19 at 07:56; Stop 08/09/19 at 19:55; Status DC Info (PHARMACY MONITORING -- do not chart) 1 each PRN DAILY PRN MC SEE COMMENTS; Start 08/09/19 at 08:00; Status UNV Info (PHARMACY MONITORING -- do not chart) 1 each PRN DAILY PRN MC SEE COMMENTS; Start 08/09/19 at 08:00; Status UNV Daptomycin 430 mg/ Sodium Chloride 50 ml @ 100 mls/hr Q24H IV Last administered on 08/09/19at 12:35; Start 08/09/19 at 09:00; Stop 08/09/19 at 12:49; Status DC Sodium Chloride 100 meq/Potassium Chloride 40 meq/ Magnesium Sulfate 20 meq/Calcium Gluconate 15 meq/ Multivitamins 10 ml/Chromium/ Copper/Manganese/ Seleni/Zn 0.5 ml/ Insulin Human Regular 35 unit/ Total Parenteral Nutrition/A jeb Acids/Dextrose/ Fat Emulsion Intravenous 1,400 ml @ 58.333 mls/ hr TPN CONT IV Last administered on 08/09/19at 21:26; Start 08/09/19 at 22:00; Stop 08/10/19 at 21:59; Status DC Daptomycin 430 mg/ Sodium Chloride 50 ml @ 100 mls/hr Q48H IV ; Start 08/11/19 at 09:00; Stop 08/10/19 at 11:55; Status DC Sodium Chloride 100 meq/Potassium Chloride 40 meq/ Magnesium Sulfate 20 me q/Calcium Gluconate 15 meq/ Multivitamins 10 ml/Chromium/ Copper/Manganese/ Seleni/Zn 0.5 ml/ Insulin Human Regular 35 unit/ Total Parenteral Nutrition/Amino Acids/Dextrose/ Fat Emulsion Intravenous 1,400 ml @ 58.333 mls/ hr TPN CONT IV Last administered on 08/10/19at 22:27; Start 08/10/19 at 22:00; Stop 08/11/19 at 21:59; Status DC Daptomycin 430 mg/ Sodium Chloride 50 ml @ 100 mls/hr Q24H IV Last administered on 08/12/19at 15:07; Start 08/10/19 at 13:00; Stop 08/13/19 at 13:15; Status DC Sodium Chloride 100 meq/Potassium Chloride 40 meq/ Magnesium Sulfate 20 meq/Calcium Gluconate 10 meq/ Multivitamins 10 ml/Chromium/ Copper/Manganese/ Seleni/Zn 0.5 ml/ Insulin Human Regular 35 unit/ Total Parenteral Nutrition/Amino Acids/Dextrose/ Fat Emulsion Intravenous 1,400 ml @ 58.333 mls/ hr TPN CONT IV Last administered on 08/12/19at 00:06; Start 08/11/19 at 22:00; Stop 08/12/19 at 21:59; Status DC Alteplase, Recombinant (Cathflo For Central Catheter Clearance) 1 mg 1X ONCE INT CAT Last administered on 08/12/19at 11:44; Start 08/12/19 at 10:45; Stop 08/12/19 at 10:46; Status DC Ondansetron HCl (Zofran) 4 mg PRN Q6HRS PRN IV NAUSEA/VOMITING; Start 08/15/19 at 07:00; Stop 08/16/19 at 06:59; Status DC Fentanyl Citrate (Fentanyl 2ml Vial) 25 mcg PRN Q5MIN PRN IV MILD PAIN 1-3; Start 08/15/19 at 07:00; Stop 08/16/19 at 06:59; Status DC Fentanyl Citrate (Fentanyl 2ml Vial) 50 mcg PRN Q5MIN PRN IV MODERATE TO SEVERE PAIN Last administered on 08/15/19at 10:17; Start 08/15/19 at 07:00; Stop 08/16/19 at 06:59; Status DC Ringer's Solution 1,000 ml @ 30 mls/hr Q24H IV ; Start 08/15/19 at 07:00; Stop 08/15/19 at 18:59; Status DC Lidocaine HCl (Xylocaine-Mpf 1% 2ml Vial) 2 ml PRN 1X PRN ID PRIOR TO IV START; Start 08/15/19 at 07:00; Stop 08/16/19 at 06:59; Status DC Prochlorperazine Edisylate (Compazine) 5 mg PACU PRN PRN IV NAUSEA, MRX1; Start 08/15/19 at 07:00; Stop 08/16/19 at 06:59; Status DC Sodium Acetate 50 meq/Potassium Acetate 55 meq/ Magnesium Sulfate 20 meq/Calcium Gluconate 10 meq/ Multivitamins 10 ml/Chromium/ Copper/Manganese/ Seleni/Zn 0.5 ml/ Insulin Human Regular 35 unit/ Total Parenteral Nutrition/Amino Acids/Dextrose/ Fat Emulsion Intravenous 1,400 ml @ 58.333 mls/ hr TPN CONT IV ; Start 08/12/19 at 22:00; Stop 08/12/19 at 14:15; Status DC Sodium Acetate 50 meq/Potassium Acetate 55 meq/ Magnesium Sulfate 20 meq/Calcium Gluconate 10 meq/ Multivitamins 10 ml/Chromium/ Copper/Manganese/ Seleni/Zn 0.5 ml/ Insulin Human Regular 35 unit/ Total Parenteral Nutrition/Amino Acids/Dextrose/ Fat Emulsion Intravenous 1,800 ml @ 75 mls/hr TPN CONT IV Last administered on 08/12/19at 22:38; Start 08/12/19 at 22:00; Stop 08/13/19 at 21:59; Status DC Sodium Chloride 1,000 ml @ 1,000 mls/hr Q1H PRN IV hypotension; Start 08/12/19 at 15:31; Stop 08/12/19 at 21:30; Status DC Diphenhydramine HCl (Benadryl) 25 mg 1X PRN PRN IV ITCHING; Start 08/12/19 at 15:45; Stop 08/13/19 at 15:44; Status DC Diphenhydramine HCl (Benadryl) 25 mg 1X PRN PRN IV ITCHING; Start 08/12/19 at 15:45; Stop 08/13/19 at 15:44; Status DC Sodium Chloride 1,000 ml @ 400 mls/hr Q2H30M PRN IV PATENCY; Start 08/12/19 at 15:31; Stop 08/13/19 at 03:30; Status DC Info (PHARMACY MONITORING -- do not chart) 1 each PRN DAILY PRN MC SEE COMMENTS; Start 08/12/19 at 15:45; Stop 09/13/19 at 14:14; Status DC Sodium Acetate 50 meq/Potassium Acetate 55 meq/ Magnesium Sulfate 20 meq/Calcium Gluconate 10 meq/ Multivitamins 10 ml/Chromium/ Copper/Manganese/ Seleni/Zn 0.5 ml/ Insulin Human Regular 35 unit/ Total Parenteral Nutrition/Amino Acids/Dextrose/ Fat Emulsion Intravenous 1,800 ml @ 75 mls/hr TPN CONT IV Last administered on 08/13/19at 22:03; Start 08/13/19 at 22:00; Stop 08/14/19 at 21:59; Status DC Daptomycin 430 mg/ Sodium Chloride 50 ml @ 100 mls/hr Q24H IV Last administered on 08/18/19at 13:00; Start 08/13/19 at 13:00; Stop 08/18/19 at 20:58; Status DC Heparin Sodium (Porcine) 1000 unit/Sodium Chloride 1,001 ml @ 1,001 mls/hr 1X ONCE IRR ; Start 08/15/19 at 06:00; Stop 08/15/19 at 06:59; Status DC Potassium Acetate 55 meq/Magnesium Sulfate 20 meq/ Calcium Gluconate 10 meq/ Multivitamins 10 ml/Chromium/ Copper/Manganese/ Seleni/Zn 0.5 ml/ Insulin Human Regular 35 unit/ Total Parenteral Nutrition/Amino Acids/Dextrose/ Fat Emulsion Intravenous 1,920 ml @ 80 mls/hr TPN CONT IV Last administered on 08/14/19at 22:10; Start 08/14/19 at 22:00; Stop 08/15/19 at 21:59; Status DC Dexamethasone Sodium Phosphate (Decadron) 4 mg STK-MED ONCE .ROUTE ; Start 08/15/19 at 10:56; Stop 08/15/19 at 10:57; Status DC Ondansetron HCl (Zofran) 4 mg STK-MED ONCE .ROUTE ; Start 08/15/19 at 10:56; Stop 08/15/19 at 10:57; Status DC Rocuronium Eugene (Zemuron) 50 mg STK-MED ONCE .ROUTE ; Start 08/15/19 at 10:56; Stop 08/15/19 at 10:57; Status DC Fentanyl Citrate (Fentanyl 2ml Vial) 100 mcg STK-MED ONCE .ROUTE ; Start 08/15/19 at 10:56; Stop 08/15/19 at 10:57; Status DC Bupivacaine HCl/ Epinephrine Bitart (Sensorcain-Epi 0.5%-1:505264 Mpf) 30 ml STK-MED ONCE .ROUTE Last administered on 08/15/19at 12:01; Start 08/15/19 at 10:58; Stop 08/15/19 at 10:58; Status DC Cellulose (Surgicel Hemostat 2x14) 1 each STK-MED ONCE .ROUTE ; Start 08/15/19 at 10:58; Stop 08/15/19 at 10:59; Status DC Iohexol (Omnipaque 300 Mg/ml) 50 ml STK-MED ONCE .ROUTE ; Start 08/15/19 at 10:58; Stop 08/15/19 at 10:59; Status DC Cellulose (Surgicel Hemostat 4x8) 1 each STK-MED ONCE .ROUTE ; Start 08/15/19 at 10:58; Stop 08/15/19 at 10:59; Status DC Bisacodyl (Dulcolax Supp) 10 mg STK-MED ONCE .ROUTE ; Start 08/15/19 at 10:59; Stop 08/15/19 at 10:59; Status DC Heparin Sodium (Porcine) 1000 unit/Sodium Chloride 1,001 ml @ 1,001 mls/hr 1X ONCE IRR ; Start 08/15/19 at 12:00; Stop 08/15/19 at 12:59; Status DC Propofol 20 ml @ As Directed STK-MED ONCE IV ; Start 08/15/19 at 11:05; Stop 08/15/19 at 11:05; Status DC Sevoflurane (Ultane) 90 ml STK-MED ONCE IH ; Start 08/15/19 at 11:05; Stop 08/15/19 at 11:05; Status DC Sevoflurane (Ultane) 60 ml STK-MED ONCE IH ; Start 08/15/19 at 12:26; Stop 08/15/19 at 12:27; Status DC Propofol 20 ml @ As Directed STK-MED ONCE IV ; Start 08/15/19 at 12:26; Stop 08/15/19 at 12:27; Status DC Phenylephrine HCl (PHENYLEPHRINE in 0.9% NACL PF) 1 mg STK-MED ONCE IV ; Start 08/15/19 at 12:34; Stop 08/15/19 at 12:34; Status DC Heparin Sodium (Porcine) (Heparin Sodium) 5,000 unit Q12HR SQ Last administered on 08/24/19at 20:57; Start 08/15/19 at 21:00; Stop 08/25/19 at 09:59; Status DC Sodium Chloride (Normal Saline Flush) 3 ml QSHIFT PRN IV AFTER MEDS AND BLOOD DRAWS; Start 08/15/19 at 13:45; Status Cancel Naloxone HCl (Narcan) 0.4 mg PRN Q2MIN PRN IV SEE INSTRUCTIONS Last administered on 09/24/19at 15:15; Start 08/15/19 at 13:45; Stop 10/19/19 at 16:00; Status DC Sodium Chloride 1,000 ml @ 25 mls/hr Q24H IV Last administered on 09/13/19at 13:37; Start 08/15/19 at 13:37; Stop 09/16/19 at 13:09; Status DC Naloxone HCl (Narcan) 0.4 mg PRN Q2MIN PRN IV SEE INSTRUCTIONS; Start 08/15/19 at 14:30; Status UNV Sodium Chloride 1,000 ml @ 25 mls/hr Q24H IV ; Start 08/15/19 at 14:30; Status UNV Hydromorphone HCl 30 ml @ 0 mls/hr CONT PRN PRN IV PER PROTOCOL Last administered on 08/20/19at 16:08; Start 08/15/19 at 14:30; Stop 08/22/19 at 08:55; Status DC Potassium Acetate 55 meq/Magnesium Sulfate 20 meq/ Calcium Gluconate 10 meq/ Multivitamins 10 ml/Chromium/ Copper/Manganese/ Seleni/Zn 0.5 ml/ Insulin Human Regular 35 unit/ Total Parenteral Nutrition/Amino Acids/Dextrose/ Fat Emulsion Intravenous 1,920 ml @ 80 mls/hr TPN CONT IV Last administered on 08/15/19at 22:01; Start 08/15/19 at 22:00; Stop 08/16/19 at 21:59; Status DC Bumetanide (Bumex) 2 mg [id number] IV Last administered on 08/19/19at 13:50; Start 08/16/19 at 14:00; Stop 08/20/19 at 14:10; Status DC Meropenem 1 gm/ Sodium Chloride 100 ml @ 200 mls/hr Q8HRS IV Last administered on 09/09/19at 05:53; Start 08/16/19 at 14:00; Stop 09/09/19 at 09:31; Status DC Potassium Acetate 55 meq/Magnesium Sulfate 20 meq/ Calcium Gluconate 10 meq/ Multivitamins 10 ml/Chromium/ Copper/Manganese/ Seleni/Zn 0.5 ml/ Insulin Human Regular 35 unit/ Total Parenteral Nutrition/Amino Acids/Dextrose/ Fat Emulsion Intravenous 1,920 ml @ 80 mls/hr TPN CONT IV Last administered on 08/16/19at 22:02; Start 08/16/19 at 22:00; Stop 08/17/19 at 21:59; Status DC Hydromorphone HCl (Dilaudid Standard FOLDER STITCHER OPERATOR) 12 mg STK-MED ONCE IV ; Start 08/15/19 at 14:35; Stop 08/16/19 at 13:53; Status DC Artificial Tears (Artificial Tears) 1 drop PRN Q15MIN PRN OU DRY EYE Last administered on 10/11/19at 21:17; Start 08/17/19 at 05:30 Hydromorphone HCl (Dilaudid Standard FOLDER STITCHER OPERATOR) 12 mg STK-MED ONCE IV ; Start 08/16/19 at 12:05; Stop 08/17/19 at 09:15; Status DC Potassium Acetate 65 meq/Magnesium Sulfate 20 meq/ Calcium Gluconate 10 meq/ Multivitamins 10 ml/Chromium/ Copper/Manganese/ Seleni/Zn 0.5 ml/ Insulin Human Regular 30 unit/ Total Parenteral Nutrition/Amino Acids/Dextrose/ Fat Emulsion Intravenous 1,920 ml @ 80 mls/hr TPN CONT IV Last administered on 08/17/19at 22:22; Start 08/17/19 at 22:00; Stop 08/18/19 at 21:59; Status DC Cyclobenzaprine HCl (Flexeril) 10 mg PRN Q6HRS PRN PO MUSCLE SPASMS Last administered on 11/26/19at 20:50; Start 08/18/19 at 10:45 Potassium Acetate 55 meq/Magnesium Sulfate 20 meq/ Calcium Gluconate 10 meq/ Multivitamins 10 ml/Chromium/ Copper/Manganese/ Seleni/Zn 0.5 ml/ Insulin Human Regular 30 unit/ Total Parenteral Nutrition/Amino Acids/Dextrose/ Fat Emulsion Intravenous 1,920 ml @ 80 mls/hr TPN CONT IV Last administered on 08/19/19at 01:00; Start 08/18/19 at 22:00; Stop 08/19/19 at 21:59; Status DC Magnesium Sulfate 50 ml @ 25 mls/hr 1X ONCE IV Last administered on 08/18/19at 17:18; Start 08/18/19 at 12:45; Stop 08/18/19 at 14:44; Status DC Potassium Chloride/Water 100 ml @ 100 mls/hr 1X ONCE IV Last administered on 08/19/19at 11:27; Start 08/19/19 at 12:00; Stop 08/19/19 at 12:59; Status DC Hydromorphone HCl (Dilaudid Standard FOLDER STITCHER OPERATOR) 12 mg STK-MED ONCE IV ; Start 08/17/19 at 10:50; Stop 08/19/19 at 11:02; Status DC Hydromorphone HCl (Dilaudid Standard FOLDER STITCHER OPERATOR) 12 mg STK-MED ONCE IV ; Start 08/18/19 at 13:47; Stop 08/19/19 at 11:03; Status DC Potassium Acetate 30 meq/Magnesium Sulfate 20 meq/ Calcium Gluconate 10 meq/ Multivitamins 10 ml/Chromium/ Copper/Manganese/ Seleni/Zn 0.5 ml/ Insulin Human Regular 30 unit/ Potassium Chloride 30 meq/ Total Parenteral Nutrition/Amino Acids/Dextrose/ Fat Emulsion Intravenous 1,920 ml @ 80 mls/hr TPN CONT IV Last administered on 08/19/19at 22:34; Start 08/19/19 at 22:00; Stop 08/20/19 at 21:59; Status DC Potassium Chloride/Water 100 ml @ 100 mls/hr Q1H IV Last administered on 08/20/19at 13:05; Start 08/20/19 at 07:00; Stop 08/20/19 at 10:59; Status DC Magnesium Sulfate 50 ml @ 25 mls/hr 1X ONCE IV Last administered on 08/20/19at 10:34; Start 08/20/19 at 10:30; Stop 08/20/19 at 12:29; Status DC Potassium Chloride 75 meq/ Magnesium Sulfate 20 meq/Calcium Gluconate 10 meq/ Multivitamins 10 ml/Chromium/ Copper/Manganese/ Seleni/Zn 0.5 ml/ Insulin Human Regular 30 unit/ Total Parenteral Nutrition/Amino Acids/Dextrose/ Fat Emulsion Intravenous 1,920 ml @ 80 mls/hr TPN CONT IV Last administered on 08/20/19at 21:51; Start 08/20/19 at 22:00; Stop 08/21/19 at 22:00; Status DC Potassium Chloride 75 meq/ Magnesium Sulfate 20 meq/Calcium Gluconate 10 meq/ Multivitamins 10 ml/Chromium/ Copper/Manganese/ Seleni/Zn 0.5 ml/ Insulin Human Regular 25 unit/ Total Parenteral Nutrition/Amino Acids/Dextrose/ Fat Emulsion Intravenous 1,920 ml @ 80 mls/hr TPN CONT IV Last administered on 08/21/19at 22:04; Start 08/21/19 at 22:00; Stop 08/22/19 at 21:59; Status DC Hydromorphone HCl (Dilaudid) 0.4 mg PRN Q4HRS PRN IVP PAIN Last administered on 08/22/19at 10:57; Start 08/22/19 at 09:00; Stop 08/22/19 at 18:59; Status DC Micafungin Sodium 100 mg/Dextrose 100 ml @ 100 mls/hr Q24H IV Last administered on 09/13/19at 12:17; Start 08/22/19 at 11:00; Stop 09/14/19 at 09:59; Status DC Daptomycin 485 mg/ Sodium Chloride 50 ml @ 100 mls/hr Q24H IV Last administered on 08/29/19at 13:10; Start 08/22/19 at 11:00; Stop 08/30/19 at 07:44; Status DC Potassium Chloride 75 meq/ Magnesium Sulfate 15 meq/Calcium Gluconate 8 meq/ Multivitamins 10 ml/Chromium/ Copper/Manganese/ Seleni/Zn 0.5 ml/ Insulin Human Regular 25 unit/ Total Parenteral Nutrition/Amino Acids/Dextrose/ Fat Emulsion Intravenous 1,920 ml @ 80 mls/hr TPN CONT IV Last administered on 08/22/19at 23:08; Start 08/22/19 at 22:00; Stop 08/23/19 at 21:59; Status DC Haloperidol Lactate (Haldol Inj) 3 mg 1X ONCE IVP Last administered on 08/22/19at 14:37; Start 08/22/19 at 14:30; Stop 08/22/19 at 14:31; Status DC Hydromorphone HCl (Dilaudid) 1 mg PRN Q4HRS PRN IVP PAIN Last administered on 09/05/19at 06:25; Start 08/22/19 at 19:00; Stop 09/05/19 at 17:10; Status DC Potassium Chloride 75 meq/ Magnesium Sulfate 15 meq/Calcium Gluconate 8 meq/ Multivitamins 10 ml/Chromium/ Copper/Manganese/ Seleni/Zn 0.5 ml/ Insulin Human Regular 20 unit/ Total Parenteral Nutrition/Amino Acids/Dextrose/ Fat Emulsion Intravenous 1,920 ml @ 80 mls/hr TPN CONT IV Last administered on 08/23/19at 22 :10; Start 08/23/19 at 22:00; Stop 08/24/19 at 21:59; Status DC Lidocaine HCl (Buffered Lidocaine 1%) 3 ml STK-MED ONCE .ROUTE ; Start 08/24/19 at 11:31; Stop 08/24/19 at 11:31; Status DC Lidocaine HCl (Buffered Lidocaine 1%) 3 ml STK-MED ONCE .ROUTE ; Start 08/24/19 at 12:28; Stop 08/24/19 at 12:29; Status DC Lidocaine HCl (Buffered Lidocaine 1%) 6 ml 1X ONCE INJ Last administered on 08/24/19at 12:53; Start 08/24/19 at 12:45; Stop 08/24/19 at 12:46; Status DC Potassium Chloride 75 meq/ Magnesium Sulfate 15 meq/Calcium Gluconate 8 meq/ Multivitamins 10 ml/Chromium/ Copper/Manganese/ Seleni/Zn 0.5 ml/ Insulin Human Regular 20 unit/ Total Parenteral Nutrition/Amino Acids/Dextrose/ Fat Emulsion Intravenous 1,920 ml @ 80 mls/hr TPN CONT IV Last administered on 08/24/19at 22:00; Start 08/24/19 at 22:00; Stop 08/25/19 at 21:59; Status DC Potassium Chloride 75 meq/ Magnesium Sulfate 15 meq/Calcium Gluconate 8 meq/ Multivitamins 10 ml/Chromium/ Copper/Manganese/ Seleni/Zn 0.5 ml/ Insulin Human Regular 15 unit/ Total Parenteral Nutrition/Amino Acids/Dextrose/ Fat Emulsion Intravenous 1,920 ml @ 80 mls/hr TPN CONT IV Last administered on 08/25/19at 22:28; Start 08/25/19 at 22:00; Stop 08/26/19 at 21:59; Status DC Vecuronium Eugene (Norcuron Bolus) 6 mg PRN Q6HRS PRN IV VENT ASYNCHRONY; Start 08/25/19 at 19:15; Stop 08/25/19 at 19:35; Status DC Bumetanide (Bumex) 2 mg 1X ONCE IV Last administered on 08/25/19at 22:09; Start 08/25/19 at 19:45; Stop 08/25/19 at 19:46; Status DC Lidocaine HCl (Buffered Lidocaine 1%) 3 ml STK-MED ONCE .ROUTE ; Start 08/26/19 at 07:59; Stop 08/26/19 at 07:59; Status DC Midazolam HCl (Versed) 5 mg STK-MED ONCE .ROUTE ; Start 08/26/19 at 08:36; Stop 08/26/19 at 08:36; Status DC Fentanyl Citrate (Fentanyl 5ml Vial) 250 mcg STK-MED ONCE .ROUTE ; Start 08/26/19 at 08:36; Stop 08/26/19 at 08:37; Status DC Lidocaine HCl (Buffered Lidocaine 1%) 3 ml 1X ONCE IJ Last administered on 08/26/19at 09:30; Start 08/26/19 at 09:15; Stop 08/26/19 at 09:16; Status DC Midazolam HCl (Versed) 5 mg 1X ONCE IV Last administered on 08/26/19at 09:30; Start 08/26/19 at 09:15; Stop 08/26/19 at 09:16; Status DC Fentanyl Citrate (Fentanyl 5ml Vial) 250 mcg 1X ONCE IV Last administered on 08/26/19at 09:30; Start 08/26/19 at 09:15; Stop 08/26/19 at 09:16; Status DC Bumetanide (Bumex) 2 mg DAILY IV Last administered on 09/05/19at 08:07; Start 08/26/19 at 10:00; Stop 09/05/19 at 17:15; Status DC Potassium Chloride 75 meq/ Magnesium Sulfate 15 meq/ Multivitamins 10 ml/Chromium/ Copper/Manganese/ Seleni/Zn 0.5 ml/ Insulin Human Regular 15 unit/ Total Parenteral Nutrition/Amino Acids/Dextrose/ Fat Emulsion Intravenous 1,920 ml @ 80 mls/hr TPN CONT IV Last administered on 08/26/19at 21:59; Start 08/26/19 at 22:00; Stop 08/27/19 at 21:59; Status DC Metoclopramide HCl (Reglan Vial) 10 mg PRN Q3HRS PRN IVP NAUSEA/VOMITING-3rd choice Last administered on 09/01/19at 04:25; Start 08/27/19 at 16:45 Potassium Chloride 75 meq/ Magnesium Sulfate 15 meq/ Multivitamins 10 ml/Chromium/ Copper/Manganese/ Seleni/Zn 0.5 ml/ Insulin Human Regular 15 unit/ Total Parenteral Nutrition/Amino Acids/Dextrose/ Fat Emulsion Intravenous 1,920 ml @ 80 mls/hr TPN CONT IV Last administered on 08/27/19at 22:41; Start 08/27/19 at 22:00; Stop 08/28/19 at 21:59; Status DC Magnesium Sulfate 50 ml @ 25 mls/hr 1X ONCE IV Last administered on 08/28/19at 10:44; Start 08/28/19 at 09:00; Stop 08/28/19 at 10:59; Status DC Potassium Chloride/Water 100 ml @ 100 mls/hr 1X ONCE IV Last administered on 08/28/19at 09:37; Start 08/28/19 at 09:00; Stop 08/28/19 at 09:59; Status DC Duloxetine HCl (Cymbalta) 30 mg DAILY PO Last administered on 08/29/19at 09:48; Start 08/28/19 at 14:00; Stop 08/31/19 at 10:25; Status DC Potassium Chloride 80 meq/ Magnesium Sulfate 20 meq/ Multivitamins 10 ml/Chromium/ Copper/Manganese/ Seleni/Zn 0.5 ml/ Insulin Human Regular 15 unit/ Total Parenteral Nutrition/Amino Acids/Dextrose/ Fat Emulsion Intravenous 1,920 ml @ 80 mls/hr TPN CONT IV Last administered on 08/28/19at 21:42; Start 08/28/19 at 22:00; Stop 08/29/19 at 21:59; Status DC Potassium Chloride 80 meq/ Magnesium Sulfate 20 meq/ Multivitamins 10 ml/Chromium/ Copper/Manganese/ Seleni/Zn 0.5 ml/ Insulin Human Regular 15 unit/ Total Parenteral Nutrition/Amino Acids/Dextrose/ Fat Emulsion Intravenous 1,920 ml @ 80 mls/hr TPN CONT IV Last administered on 08/29/19at 22:20; Start 08/29/19 at 22:00; Stop 08/30/19 at 21:59; Status DC Lidocaine HCl (Buffered Lidocaine 1%) 3 ml STK-MED ONCE .ROUTE ; Start 08/30/19 at 09:54; Stop 08/30/19 at 09:55; Status DC Hydromorphone HCl (Dilaudid Standard FOLDER STITCHER OPERATOR) 12 mg STK-MED ONCE IV ; Start 08/19/19 at 15:50; Stop 08/30/19 at 11:24; Status DC Potassium Chloride 80 meq/ Magnesium Sulfate 20 meq/ Multivitamins 10 ml/Chromium/ Copper/Manganese/ Seleni/Zn 0.5 ml/ Insulin Human Regular 15 unit/ Total Parenteral Nutrition/Amino Acids/Dextrose/ Fat Emulsion Intravenous 1,920 ml @ 80 mls/hr TPN CONT IV Last administered on 08/30/19at 21:40; Start 08/30/19 at 22:00; Stop 08/31/19 at 21:59; Status DC Lidocaine HCl (Buffered Lidocaine 1%) 6 ml 1X ONCE INJ Last administered on 08/30/19at 14:15; Start 08/30/19 at 14:15; Stop 08/30/19 at 14:16; Status DC Potassium Chloride 80 meq/ Magnesium Sulfate 20 meq/ Multivitamins 10 ml/Chromium/ Copper/Manganese/ Seleni/Zn 1 ml/ Insulin Human Regular 15 unit/ Total Parenteral Nutrition/Amino Acids/Dextrose/ Fat Emulsion Intravenous 1,920 ml @ 80 mls/hr TPN CONT IV Last administered on 08/31/19at 22:04; Start 08/31/19 at 22:00; Stop 09/01/19 at 21:59; Status DC Potassium Chloride/Water 100 ml @ 100 mls/hr 1X ONCE IV Last administered on 09/01/19at 11:34; Start 09/01/19 at 11:00; Stop 09/01/19 at 11:59; Status DC Potassium Chloride 90 meq/ Magnesium Sulfate 20 meq/ Multivitamins 10 ml/Chromium/ Copper/Manganese/ Seleni/Zn 1 ml/ Insulin Human Regular 15 unit/ Total Parenteral Nutrition/Amino Acids/Dextrose/ Fat Emulsion Intravenous 1,920 ml @ 80 mls/hr TPN CONT IV Last administered on 09/01/19at 22:57; Start 09/01/19 at 22:00; Stop 09/02/19 at 21:59; Status DC Potassium Chloride 90 meq/ Magnesium Sulfate 20 meq/ Multivitamins 10 ml/Chromium/ Copper/Manganese/ Seleni/Zn 1 ml/ Insulin Human Regular 15 unit/ Total Parenteral Nutrition/Amino Acids/Dextrose/ Fat Emulsion Intravenous 1,920 ml @ 80 mls/hr TPN CONT IV Last administered on 09/02/19at 22:48; Start 09/02/19 at 22:00; Stop 09/03/19 at 21:59; Status DC Potassium Chloride 90 meq/ Magnesium Sulfate 20 meq/ Multivitamins 10 ml/Chromium/ Copper/Manganese/ Seleni/Zn 1 ml/ Insulin Human Regular 15 unit/ Total Parenteral Nutrition/Amino Acids/Dextrose/ Fat Emulsion Intravenous 1,890 ml @ 78.75 mls/ hr TPN CONT IV Last administered on 09/03/19at 22:15; Start 09/03/19 at 22:00; Stop 09/04/19 at 21:59; Status DC Linezolid/Dextrose 300 ml @ 300 mls/hr Q12HR IV Last administered on 09/06/19at 21:08; Start 09/04/19 at 09:00; Stop 09/07/19 at 08:11; Status DC Daptomycin 450 mg/ Sodium Chloride 50 ml @ 100 mls/hr Q24H IV Last administered on 09/07/19at 09:25; Start 09/04/19 at 09:00; Stop 09/08/19 at 08:30; Status DC Potassium Chloride 90 meq/ Magnesium Sulfate 20 meq/ Multivitamins 10 ml/Chromium/ Copper/Manganese/ Seleni/Zn 1 ml/ Insulin Human Regular 15 unit/ Total Parenteral Nutrition/Amino Acids/Dextrose/ Fat Emulsion Intravenous 1,890 ml @ 78.75 mls/ hr TPN CONT IV Last administered on 09/04/19at 21:34; Start 09/04/19 at 22:00; Stop 09/05/19 at 21:59; Status DC Lorazepam (Ativan Inj) 2 mg STK-MED ONCE .ROUTE ; Start 09/04/19 at 14:58; Stop 09/04/19 at 14:58; Status DC Metoprolol Tartrate (Lopressor Vial) 5 mg 1X ONCE IVP Last administered on 09/04/19at 15:31; Start 09/04/19 at 15:15; Stop 09/04/19 at 15:16; Status DC Lorazepam (Ativan Inj) 2 mg 1X ONCE IVP Last administered on 09/04/19at 15:30; Start 09/04/19 at 15:15; Stop 09/04/19 at 15:16; Status DC Enoxaparin Sodium (Lovenox 40mg Syringe) 40 mg Q24H SQ Last administered on 09/23/19at 17:44; Start 09/04/19 at 17:00; Stop 09/25/19 at 06:50; Status DC Lorazepam (Ativan Inj) 1 mg PRN Q4HRS PRN IVP ANXIETY / AGITATION MILD-MOD Last administered on 09/18/19at 15:55; Start 09/04/19 at 19:15; Stop 09/20/19 at 11:45; Status DC Lorazepam (Ativan Inj) 2 mg PRN Q4HRS PRN IVP ANXIETY / AGITATION SEVERE Last administered on 09/19/19at 07:55; Start 09/04/19 at 19:15; Stop 09/20/19 at 11:45; Status DC Fentanyl Citrate (Fentanyl 2ml Vial) 50 mcg PRN Q4HRS PRN IVP SEVERE PAIN Last administered on 10/01/19at 05:15; Start 09/05/19 at 13:15; Stop 10/02/19 at 09:29; Status DC Fentanyl Citrate (Fentanyl 2ml Vial) 25 mcg PRN Q4HRS PRN IVP MODERATE PAIN Last administered on 10/01/19at 00:27; Start 09/05/19 at 13:15; Stop 10/02/19 at 09:30; Status DC Potassium Chloride 90 meq/ Magnesium Sulfate 20 meq/ Multivitamins 10 ml/Chromium/ Copper/Manganese/ Seleni/Zn 1 ml/ Insulin Human Regular 15 unit/ Total Parenteral Nutrition/Amino Acids/Dextrose/ Fat Emulsion Intravenous 1,890 ml @ 78.75 mls/ hr TPN CONT IV Last administered on 09/05/19at 22:18; Start 09/05/19 at 22:00; Stop 09/06/19 at 21:59; Status DC Furosemide (Lasix) 40 mg 1X ONCE IVP Last administered on 09/05/19at 21:51; Start 09/05/19 at 21:45; Stop 09/05/19 at 21:48; Status DC Albumin Human 100 ml @ 100 mls/hr 1X PRN PRN IV SEE COMMENTS; Start 09/06/19 at 01:30; Stop 11/21/19 at 09:52; Status DC Furosemide (Lasix) 40 mg [id number] IVP Last administered on 09/21/19at 08:04; Start 09/06/19 at 14:00; Stop 09/21/19 at 13:07; Status DC Potassium Chloride 90 meq/ Magnesium Sulfate 20 meq/ Multivitamins 10 ml/Chromium/ Copper/Manganese/ Seleni/Zn 1 ml/ Insulin Human Regular 15 unit/ Total Parenteral Nutrition/Amino Acids/Dextrose/ Fat Emulsion Intravenous 1,800 ml @ 75 mls/hr TPN CONT IV Last administered on 09/06/19at 22:31; Start 09/06/19 at 22:00; Stop 09/07/19 at 21:59; Status DC Potassium Chloride 90 meq/ Magnesium Sulfate 20 meq/ Multivitamins 10 ml/Chromium/ Copper/Manganese/ Seleni/Zn 1 ml/ Insulin Human Regular 15 unit/ Total Parenteral Nutrition/Amino Acids/Dextrose/ Fat Emulsion Intravenous 1,800 ml @ 75 mls/hr TPN CONT IV Last administered on 09/07/19at 22:28; Start 09/07/19 at 22:00; Stop 09/08/19 at 21:59; Status DC Potassium Chloride 110 meq/ Magnesium Sulfate 20 meq/ Multivitamins 10 ml/Chromium/ Copper/Manganese/ Seleni/Zn 1 ml/ Insulin Human Regular 15 unit/ Total Parenteral Nutrition/Amino Acids/Dextrose/ Fat Emulsion Intravenous 1,800 ml @ 75 mls/hr TPN CONT IV Last administered on 09/08/19at 22:01; Start 09/08/19 at 22:00; Stop 09/09/19 at 21:59; Status DC Saliva Substitute (Biotene Moisturizing Mouth) 2 spray PRN Q15MIN PRN PO DRY MOUTH; Start 09/08/19 at 11:00 Potassium Chloride 110 meq/ Magnesium Sulfate 20 meq/ Multivitamins 10 ml/Chromium/ Copper/Manganese/ Seleni/Zn 1 ml/ Insulin Human Regular 15 unit/ Total Parenteral Nutrition/Amino Acids/Dextrose/ Fat Emulsion Intravenous 1,800 ml @ 75 mls/hr TPN CONT IV Last administered on 09/09/19at 22:21; Start 09/09/19 at 22:00; Stop 09/10/19 at 21:59; Status DC Potassium Chloride 110 meq/ Magnesium Sulfate 20 meq/ Multivitamins 10 ml/Chromium/ Copper/Manganese/ Seleni/Zn 1 ml/ Insulin Human Regular 15 unit/ Total Parenteral Nutrition/Amino Acids/Dextrose/ Fat Emulsion Intravenous 1,800 ml @ 75 mls/hr TPN CONT IV Last administered on 09/10/19at 22:04; Start 09/10/19 at 22:00; Stop 09/11/19 at 21:59; Status DC Potassium Chloride 110 meq/ Magnesium Sulfate 20 meq/ Multivitamins 10 ml/Chromium/ Copper/Manganese/ Seleni/Zn 1 ml/ Insulin Human Regular 15 unit/ Total Parenteral Nutrition/Amino Acids/Dextrose/ Fat Emulsion Intravenous 1,800 ml @ 75 mls/hr TPN CONT IV Last administered on 09/11/19at 22:48; Start 09/11/19 at 22:00; Stop 09/12/19 at 21:59; Status DC Potassium Chloride 70 meq/ Magnesium Sulfate 20 meq/ Multivitamins 10 ml/Chromium/ Copper/Manganese/ Seleni/Zn 1 ml/ Insulin Human Regular 15 unit/ Total Parenteral Nutrition/Amino Acids/Dextrose/ Fat Emulsion Intravenous 1,800 ml @ 75 mls/hr TPN CONT IV Last administered on 09/12/19at 21:39; Start 09/12/19 at 22:00; Stop 09/13/19 at 21:59; Status DC Meropenem 500 mg/ Sodium Chloride 50 ml @ 100 mls/hr Q6HRS IV Last administered on 09/14/19at 06:02; Start 09/12/19 at 18:00; Stop 09/14/19 at 09:59; Status DC Barium Sulfate (Varibar Thin Liquid Apple) 148 gm 1X ONCE PO ; Start 09/13/19 at 11:45; Stop 09/13/19 at 11:49; Status DC Potassium Chloride 70 meq/ Magnesium Sulfate 20 meq/ Multivitamins 10 ml/Chromi um/ Copper/Manganese/ Seleni/Zn 1 ml/ Insulin Human Regular 15 unit/ Total Parenteral Nutrition/Amino Acids/Dextrose/ Fat Emulsion Intravenous 1,800 ml @ 75 mls/hr TPN CONT IV Last administered on 09/13/19at 22:27; Start 09/13/19 at 22:00; Stop 09/14/19 at 21:59; Status DC Piperacillin Sod/ Tazobactam Sod 3.375 gm/Sodium Chloride 50 ml @ 100 mls/hr Q6HRS IV Last administered on 09/22/19at 06:10; Start 09/14/19 at 12:00; Stop 09/22/19 at 07:26; Status DC Potassium Chloride 70 meq/ Magnesium Sulfate 20 meq/ Multivitamins 10 ml/Chromium/ Copper/Manganese/ Seleni/Zn 1 ml/ Insulin Human Regular 15 unit/ Total Parenteral Nutrition/Amino Acids/Dextrose/ Fat Emulsion Intravenous 1,800 ml @ 75 mls/hr TPN CONT IV Last administered on 09/14/19at 22:03; Start 09/13 at 22:00; Stop 09/15/19 at 21:59; Status DC Potassium Chloride 70 meq/ Magnesium Sulfate 20 meq/ Multivitamins 10 ml/Chromi um/ Copper/Manganese/ Seleni/Zn 1 ml/ Insulin Human Regular 15 unit/ Total Parenteral Nutrition/Amino Acids/Dextrose/ Fat Emulsion Intravenous 1,800 ml @ 75 mls/hr TPN CONT IV Last administered on 09/15/19at 22:33; Start 09/15/19 at 22:00; Stop 09/16/19 at 21:59; Status DC Potassium Chloride 70 meq/ Magnesium Sulfate 20 meq/ Multivitamins 10 ml/Chromium/ Copper/Manganese/ Seleni/Zn 1 ml/ Insulin Human Regular 15 unit/ Total Parenteral Nutrition/Amino Acids/Dextrose/ Fat Emulsion Intravenous 1,800 ml @ 75 mls/hr TPN CONT IV Last administered on 09/16/19at 23:13; Start 09/16/19 at 22:00; Stop 09/17/19 at 21:59; Status DC Potassium Chloride 80 meq/ Magnesium Sulfate 20 meq/ Multivitamins 10 ml/Chromium/ Copper/Manganese/ Seleni/Zn 1 ml/ Insulin Human Regular 15 unit/ Total Parenteral Nutrition/Amino Acids/Dextrose/ Fat Emulsion Intravenous 1,800 ml @ 75 mls/hr TPN CONT IV Last administered on 09/17/19at 22:30; Start 09/17/19 at 22:00; Stop 09/18/19 at 21:59; Status DC Potassium Chloride 80 meq/ Magnesium Sulfate 20 meq/ Multivitamins 10 ml/Chromium/ Copper/Manganese/ Seleni/Zn 1 ml/ Insulin Human Regular 15 unit/ Total Parenteral Nutrition/Amino Acids/Dextrose/ Fat Emulsion Intravenous 1,800 ml @ 75 mls/hr TPN CONT IV Last administered on 09/18/19at 21:54; Start 09/18/19 at 22:00; Stop 09/19/19 at 21:59; Status DC Potassium Chloride/Water 100 ml @ 100 mls/hr 1X ONCE IV Last administered on 09/19/19at 10:15; Start 09/19/19 at 10:00; Stop 09/19/19 at 10:59; Status DC Potassium Chloride 90 meq/ Magnesium Sulfate 20 meq/ Multivitamins 10 ml/Chromium/ Copper/Manganese/ Seleni/Zn 1 ml/ Insulin Human Regular 20 unit/ Total Parenteral Nutrition/Amino Acids/Dextrose/ Fat Emulsion Intravenous 1,800 ml @ 75 mls/hr TPN CONT IV Last administered on 09/19/19at 22:28; Start 09/19/19 at 22:00; Stop 09/20/19 at 21:59; Status DC Potassium Chloride 90 meq/ Magnesium Sulfate 20 meq/ Multivitamins 10 ml/Chromium/ Copper/Manganese/ Seleni/Zn 1 ml/ Insulin Human Regular 20 unit/ Total Parenteral Nutrition/Amino Acids/Dextrose/ Fat Emulsion Intravenous 1,800 ml @ 75 mls/hr TPN CONT IV Last administered on 09/20/19at 22:08; Start 09/20/19 at 22:00; Stop 09/21/19 at 21:59; Status DC Lorazepam (Ativan Inj) 0.25 mg PRN Q4HRS PRN IVP ANXIETY / AGITATION Last administered on 11/30/19at 09:50; Start 09/21/19 at 07:30 Potassium Chloride 90 meq/ Magnesium Sulfate 20 meq/ Multivitamins 10 ml/Chromium/ Copper/Manganese/ Seleni/Zn 1 ml/ Insulin Human Regular 20 unit/ Total Parenteral Nutrition/Amino Acids/Dextrose/ Fat Emulsion Intravenous 1,800 ml @ 75 mls/hr TPN CONT IV Last administered on 09/21/19at 23:13; Start 09/21/19 at 22:00; Stop 09/22/19 at 21:59; Status DC Furosemide (Lasix) 40 mg DAILY IVP Last administered on 09/23/19at 11:14; Start 09/21/19 at 13:30; Stop 09/25/19 at 09:12; Status DC Fluoxetine HCl (PROzac) 20 mg QHS PEG Last administered on 11/29/19at 20:47; Start 09/22/19 at 21:00 Fentanyl (Duragesic 50mcg/ Hr Patch) 1 patch Q72H TD Last administered on 09/22/19at 21:22; Start 09/22/19 at 21:00; Stop 10/01/19 at 12:00; Status DC Potassium Chloride 40 meq/ Potassium Acetate 60 meq/Magnesium Sulfate 10 meq/ Multivitamins 10 ml/Chromium/ Copper/Manganese/ Seleni/Zn 1 ml/ Insulin Human Regular 20 unit/ Total Parenteral Nutrition/Amino Acids/Dextrose/ Fat Emulsion Intravenous 1,800 ml @ 75 mls/hr TPN CONT IV Last administered on 09/23/19at 00:03; Start 09/22/19 at 22:00; Stop 09/23/19 at 21:59; Status DC Potassium Acetate 80 meq/Magnesium Sulfate 5 meq/ Multivitamins 10 ml/Chromium/ Copper/Manganese/ Seleni/Zn 1 ml/ Insulin Human Regular 20 unit/ Total Parenteral Nutrition/Amino Acids/Dextrose/ Fat Emulsion Intravenous 1,920 ml @ 80 mls/hr TPN CONT IV Last administered on 09/23/19at 21:59; Start 09/23/19 at 22:00; Stop 09/24/19 at 21:59; Status DC Potassium Acetate 60 meq/Magnesium Sulfate 5 meq/ Multivitamins 10 ml/Chromium/ Copper/Manganese/ Seleni/Zn 1 ml/ Insulin Human Regular 30 unit/ Total Parenteral Nutrition/Amino Acids/Dextrose/ Fat Emulsion Intravenous 1,920 ml @ 80 mls/hr TPN CONT IV Last administered on 09/24/19at 21:54; Start 09/24/19 at 22:00; Stop 09/25/19 at 21:59; Status DC Norepinephrine Bitartrate 8 mg/ Dextrose 258 ml @ 13.332 mls/ hr CONT PRN IV PER PROTOCOL Last administered on 10/20/19at 09:09; Start 09/25/19 at 06:30; Stop 11/21/19 at 09:45; Status DC Albumin Human 500 ml @ 125 mls/hr 1X ONCE IV Last administered on 09/25/19at 08:10; Start 09/25/19 at 08:15; Stop 09/25/19 at 12:14; Status DC Potassium Acetate 40 meq/Magnesium Sulfate 5 meq/ Multivitamins 10 ml/Chromium/ Copper/Manganese/ Seleni/Zn 1 ml/ Insulin Human Regular 30 unit/ Total Parenteral Nutrition/Amino Acids/Dextrose/ Fat Emulsion Intravenous 1,920 ml @ 80 mls/hr TPN CONT IV Last administered on 09/25/19at 22:23; Start 09/25/19 at 22:00; Stop 09/26/19 at 21:59; Status DC Meropenem 1 gm/ Sodium Chloride 100 ml @ 200 mls/hr Q8HRS IV ; Start 09/25/19 at 14:00; Status Cancel Meropenem 1 gm/ Sodium Chloride 100 ml @ 200 mls/hr Q8HRS IV Last administered on 09/25/19at 11:04; Start 09/25/19 at 10:00; Stop 09/25/19 at 13:00; Status DC Meropenem 1 gm/ Sodium Chloride 100 ml @ 200 mls/hr Q12HR IV Last administered on 10/13/19at 08:27; Start 09/25/19 at 21:00; Stop 10/13/19 at 08:56; Status DC Sodium Chloride 1,000 ml @ 1,000 mls/hr 1X ONCE IV Last administered on 09/25/19at 11:06; Start 09/25/19 at 10:45; Stop 09/25/19 at 11:44; Status DC Micafungin Sodium 100 mg/Dextrose 100 ml @ 100 mls/hr Q24H IV Last administered on 10/12/19at 12:34; Start 09/25/19 at 11:00; Stop 10/13/19 at 08:56; Status DC Daptomycin 410 mg/ Sodium Chloride 50 ml @ 100 mls/hr Q24H IV Last admin istered on 09/27/19at 13:33; Start 09/25/19 at 14:00; Stop 09/28/19 at 08:30; Status DC Midazolam HCl (Versed) 2 mg STK-MED ONCE .ROUTE ; Start 09/25/19 at 14:47; Stop 09/25/19 at 14:48; Status DC Fentanyl Citrate (Fentanyl 2ml Vial) 100 mcg STK-MED ONCE .ROUTE ; Start 09/25/19 at 14:47; Stop 09/25/19 at 14:48; Status DC Flumazenil (Romazicon) 0.5 mg STK-MED ONCE IV ; Start 09/25/19 at 14:48; Stop 09/25/19 at 14:48; Status DC Naloxone HCl (Narcan) 0.4 mg STK-MED ONCE .ROUTE ; Start 09/25/19 at 14:48; Stop 09/25/19 at 14:48; Status DC Lidocaine HCl (Lidocaine 1% 20ml Vial) 20 ml STK-MED ONCE .ROUTE ; Start 09/25/19 at 14:48; Stop 09/25/19 at 14:48; Status DC Midazolam HCl (Versed) 2 mg 1X ONCE IV Last administered on 09/25/19at 15:28; Start 09/25/19 at 15:00; Stop 09/25/19 at 15:01; Status DC Fentanyl Citrate (Fentanyl 2ml Vial) 100 mcg 1X ONCE IV Last administered on 09/25/19at 15:28; Start 09/25/19 at 15:00; Stop 09/25/19 at 15:01; Status DC Lidocaine HCl (Lidocaine 1% 20ml Vial) 20 ml 1X ONCE INJ Last administered on 09/25/19at 15:30; Start 09/25/19 at 15:00; Stop 09/25/19 at 15:01; Status DC Sodium Chloride 1,000 ml @ 100 mls/hr Q10H IV Last administered on 10/04/19at 07:30; Start 09/25/19 at 20:00; Stop 10/04/19 at 11:26; Status DC Sodium Bicarbonate (Sodium Bicarb Adult 8.4% Syr) 50 meq 1X ONCE IV Last administered on 09/25/19at 21:47; Start 09/25/19 at 22:00; Stop 09/25/19 at 22:01; Status DC Potassium Acetate 40 meq/Magnesium Sulfate 5 meq/ Multivitamins 10 ml/Chromium/ Copper/Manganese/ Seleni/Zn 1 ml/ Insulin Human Regular 30 unit/ Total Parenteral Nutrition/Amino Acids/Dextrose/ Fat Emulsion Intravenous 1,920 ml @ 80 mls/hr TPN CONT IV Last administered on 09/26/19at 22:28; Start 09/26/19 at 22:00; Stop 09/27/19 at 21:59; Status DC Sodium Chloride 500 ml @ 500 mls/hr 1X ONCE IV Last administered on 09/27/19at 06:39; Start 09/27/19 at 06:45; Stop 09/27/19 at 07:44; Status DC Potassium Acetate 40 meq/Magnesium Sulfate 5 meq/ Multivitamins 10 ml/Chromium/ Copper/Manganese/ Seleni/Zn 1 ml/ Insulin Human Regular 30 unit/ Total Parenteral Nutrition/Amino Acids/Dextrose/ Fat Emulsion Intravenous 1,920 ml @ 80 mls/hr TPN CONT IV Last administered on 09/27/19at 22:03; Start 09/27/19 at 22:00; Stop 09/28/19 at 21:59; Status DC Metoprolol Tartrate (Lopressor Vial) 5 mg PRN Q6HRS PRN IVP HYPERTENSION Last administered on 11/29/19at 10:02; Start 09/28/19 at 09:00 Potassium Acetate 40 meq/Magnesium Sulfate 5 meq/ Multivitamins 10 ml/Chromium/ Copper/Manganese/ Seleni/Zn 1 ml/ Insulin Human Regular 30 unit/ Total Parenteral Nutrition/Amino Acids/Dextrose/ Fat Emulsion Intravenous 1,920 ml @ 80 mls/hr TPN CONT IV Last administered on 09/28/19at 21:26; Start 09/28/19 at 22:00; Stop 09/29/19 at 21:59; Status DC Potassium Acetate 40 meq/Magnesium Sulfate 5 meq/ Multivitamins 10 ml/Chromium/ Copper/Manganese/ Seleni/Zn 1 ml/ Insulin Human Regular 30 unit/ Total Parenteral Nutrition/Amino Acids/Dextrose/ Fat Emulsion Intravenous 1,920 ml @ 80 mls/hr TPN CONT IV Last administered on 09/29/19at 23:23; Start 09/29/19 at 22:00; Stop 09/30/19 at 21:59; Status DC Potassium Acetate 40 meq/Magnesium Sulfate 5 meq/ Multivitamins 10 ml/Chromium/ Copper/Manganese/ Seleni/Zn 1 ml/ Insulin Human Regular 30 unit/ Total Parenteral Nutrition/Amino Acids/Dextrose/ Fat Emulsion Intravenous 1,920 ml @ 80 mls/hr TPN CONT IV Last administered on 09/30/19at 21:35; Start 09/30/19 at 22:00; Stop 10/01/19 at 21:59; Status DC Furosemide (Lasix) 20 mg 1X ONCE IVP Last administered on 10/01/19at 06:26; Start 10/01/19 at 06:15; Stop 10/01/19 at 06:16; Status DC Methylprednisolone Sodium Succinate (SOLU-Medrol 125MG VIAL) 125 mg 1X ONCE IV Last administered on 10/01/19at 06:26; Start 10/01/19 at 06:15; Stop 10/01/19 at 06:16; Status DC Albuterol/ Ipratropium (Duoneb) 3 ml Q4HRS NEB Last administered on 11/30/19at 08:46; Start 10/01/19 at 08:00 Fentanyl Citrate 30 ml @ 0 mls/hr CONT PRN IV SEE PROTOCOL Last administered on 10/22/19at 08:03; Start 10/01/19 at 06:00; Stop 10/22/19 at 12:42; Status DC Propofol 100 ml @ 0 mls/hr CONT PRN IV SEE PROTOCOL Last administered on 10/08/19at 23:50; Start 10/01/19 at 06:00; Stop 11/21/19 at 09:45; Status DC Fentanyl Citrate (Fentanyl 2ml Vial) 25 mcg PRN Q1HR PRN IV SEE COMMENTS Last administered on 11/19/19at 23:56; Start 10/01/19 at 06:00; Stop 11/21/19 at 09:45; Status DC Fentanyl Citrate (Fentanyl 2ml Vial) 50 mcg PRN Q1HR PRN IV SEE COMMENTS Last administered on 11/21/19at 09:39; Start 10/01/19 at 06:00; Stop 11/21/19 at 09:45; Status DC Chlorhexidine Gluconate (Peridex) 15 ml BID MM ; Start 10/01/19 at 09:00; Stop 10/01/19 at 07:58; Status DC Potassium Acetate 40 meq/Magnesium Sulfate 5 meq/ Multivitamins 10 ml/Chromium/ Copper/Manganese/ Seleni/Zn 1 ml/ Insulin Human Regular 30 unit/ Total Parenteral Nutrition/Amino Acids/Dextrose/ Fat Emulsion Intravenous 1,920 ml @ 80 mls/hr TPN CONT IV Last administered on 10/01/19at 21:19; Start 10/01/19 at 22:00; Stop 10/02/19 at 21:59; Status DC Acetylcysteine (Mucomyst 20% Resp Treatment) 600 mg BID NEB Last administered on 10/07/19at 09:33; Start 10/01/19 at 21:00; Stop 10/07/19 at 10:39; Status DC Magnesium Sulfate 100 ml @ 25 mls/hr 1X ONCE IV Last administered on 10/01/19at 15:48; Start 10/01/19 at 15:45; Stop 10/01/19 at 19:44; Status DC Potassium Acetate 40 meq/Magnesium Sulfate 5 meq/ Multivitamins 10 ml/Chromium/ Copper/Manganese/ Seleni/Zn 1 ml/ Insulin Human Regular 30 unit/ Total Parenteral Nutrition/Amino Acids/Dextrose/ Fat Emulsion Intravenous 1,920 ml @ 80 mls/hr TPN CONT IV Last administered on 10/02/19at 21:35; Start 10/02/19 at 22:00; Stop 10/03/19 at 21:59; Status DC Potassium Chloride/Water 100 ml @ 100 mls/hr Q1H IV Last administered on 10/03/19at 08:31; Start 10/03/19 at 07:00; Stop 10/03/19 at 08:59; Status DC Potassium Acetate 40 meq/Magnesium Sulfate 5 meq/ Multivitamins 10 ml/Chromium/ Copper/Manganese/ Seleni/Zn 1 ml/ Insulin Human Regular 30 unit/ Total Parenteral Nutrition/Amino Acids/Dextrose/ Fat Emulsion Intravenous 1,920 ml @ 80 mls/hr TPN CONT IV Last administered on 10/03/19at 21:54; Start 10/03/19 at 22:00; Stop 10/04/19 at 19:34; Status DC Lidocaine HCl (Buffered Lidocaine 1%) 3 ml STK-MED ONCE .ROUTE ; Start 10/03/19 at 12:14; Stop 10/03/19 at 12:14; Status DC Lidocaine HCl (Buffered Lidocaine 1%) 3 ml 1X ONCE IJ Last administered on 10/03/19at 13:11; Start 10/03/19 at 13:00; Stop 10/03/19 at 13:01; Status DC Magnesium Sulfate 50 ml @ 25 mls/hr 1X ONCE IV ; Start 10/04/19 at 08:15; Stop 10/04/19 at 10:14; Status DC Potassium Acetate 40 meq/Magnesium Sulfate 10 meq/ Multivitamins 10 ml/Chromium/ Copper/Manganese/ Seleni/Zn 1 ml/ Insulin Human Regular 20 unit/ Total Parenteral Nutrition/Amino Acids/Dextrose/ Fat Emulsion Intravenous 1,920 ml @ 80 mls/hr TPN CONT IV Last administered on 10/04/19at 21:32; Start 10/04/19 at 22:00; Stop 10/05/19 at 21:59; Status DC Potassium Chloride/Water 100 ml @ 100 mls/hr Q1H IV Last administered on 10/05/19at 09:12; Start 10/05/19 at 08:00; Stop 10/05/19 at 09:59; Status DC Alteplase, Recombinant (Cathflo For Central Catheter Clearance) 4 mg 1X ONCE INT CAT ; Start 10/05/19 at 09:15; Stop 10/05/19 at 09:16; Status UNV Alteplase, Recombinant (Cathflo For Central Catheter Clearance) 4 mg 1X ONCE INT CAT ; Start 10/05/19 at 09:15; Stop 10/05/19 at 09:16; Status UNV Alteplase, Recombinant (Cathflo For Central Catheter Clearance) 4 mg 1X ONCE INT CAT ; Start 10/05/19 at 09:15; Stop 10/05/19 at 09:16; Status UNV Alteplase, Recombinant 4 mg/ Sodium Chloride 20 ml @ 20 mls/hr 1X ONCE IV Last administered on 10/05/19at 10:10; Start 10/05/19 at 10:00; Stop 10/05/19 at 10:59; Status DC Alteplase, Recombinant 4 mg/ Sodium Chloride 20 ml @ 20 mls/hr 1X ONCE IV Last administered on 10/05/19at 10:09; Start 10/05/19 at 10:00; Stop 10/05/19 at 10:59; Status DC Alteplase, Recombinant 4 mg/ Sodium Chloride 20 ml @ 20 mls/hr 1X ONCE IV Last administered on 10/05/19at 10:09; Start 10/05/19 at 10:00; Stop 10/05/19 at 10:59; Status DC Potassium Acetate 60 meq/Magnesium Sulfate 10 meq/ Multivitamins 10 ml/Chromium/ Copper/Manganese/ Seleni/Zn 1 ml/ Insulin Human Regular 20 unit/ Total Parenteral Nutrition/Amino Acids/Dextrose/ Fat Emulsion Intravenous 1,920 ml @ 80 mls/hr TPN CONT IV Last administered on 10/05/19at 21:55; Start 10/05/19 at 22:00; Stop 10/06/19 at 21:59; Status DC Albumin Human 500 ml @ 125 mls/hr 1X ONCE IV Last administered on 10/06/19at 12:01; Start 10/06/19 at 11:15; Stop 10/06/19 at 15:14; Status DC Sodium Chloride 500 ml @ 500 mls/hr 1X ONCE IV Last administered on 10/06/19at 13:50; Start 10/06/19 at 11:15; Stop 10/06/19 at 12:14; Status DC Potassium Acetate 60 meq/Magnesium Sulfate 14 meq/ Multivitamins 10 ml/Chromium/ Copper/Manganese/ Seleni/Zn 1 ml/ Insulin Human Regular 20 unit/ Total Parenteral Nutrition/Amino Acids/Dextrose/ Fat Emulsion Intravenous 1,920 ml @ 80 mls/hr TPN CONT IV Last administered on 10/06/19at 22:26; Start 10/06/19 at 22:00; Stop 10/07/19 at 21:59; Status DC Ciprofloxacin/ Dextrose 200 ml @ 200 mls/hr Q12HR IV Last administered on 10/13/19at 08:27; Start 10/06/19 at 21:00; Stop 10/13/19 at 08:56; Status DC Albumin Human 250 ml @ 62.5 mls/hr 1X ONCE IV Last administered on 10/07/19at 11:09; Start 10/07/19 at 11:00; Stop 10/07/19 at 14:59; Status DC Furosemide (Lasix) 20 mg 1X ONCE IVP Last administered on 10/07/19at 14:52; Start 10/07/19 at 10:45; Stop 10/07/19 at 10:49; Status DC Potassium Acetate 60 meq/Magnesium Sulfate 14 meq/ Multivitamins 10 ml/Chromium/ Copper/Manganese/ Seleni/Zn 1 ml/ Insulin Human Regular 15 unit/ Total Parenteral Nutrition/Amino Acids/Dextrose/ Fat Emulsion Intravenous 1,920 ml @ 80 mls/hr TPN CONT IV Last administered on 10/07/19at 22:08; Start 10/07/19 at 22:00; Stop 10/08/19 at 21:59; Status DC Potassium Acetate 60 meq/Magnesium Sulfate 14 meq/ Multivitamins 10 ml/Chromium/ Copper/Manganese/ Seleni/Zn 1 ml/ Insulin Human Regular 15 unit/ Total Parenteral Nutrition/Amino Acids/Dextrose/ Fat Emulsion Intravenous 1,920 ml @ 80 mls/hr TPN CONT IV Last administered on 10/08/19at 22:12; Start 10/08/19 at 22:00; Stop 10/09/19 at 21:59; Status DC Potassium Acetate 60 meq/Magnesium Sulfate 14 meq/ Multivitamins 10 ml/Chromium/ Copper/Manganese/ Seleni/Zn 1 ml/ Insulin Human Regular 15 unit/ Total Parenteral Nutrition/Amino Acids/Dextrose/ Fat Emulsion Intravenous 1,920 ml @ 80 mls/hr TPN CONT IV Last administered on 10/09/19at 22:22; Start 10/09/19 at 22:00; Stop 10/10/19 at 21:59; Status DC Furosemide (Lasix) 20 mg 1X ONCE IVP Last administered on 10/10/19at 11:07; Start 10/10/19 at 10:30; Stop 10/10/19 at 10:34; Status DC Potassium Acetate 60 meq/Magnesium Sulfate 14 meq/ Multivitamins 10 ml/Chromium/ Copper/Manganese/ Seleni/Zn 1 ml/ Insulin Human Regular 15 unit/ Sodium Chloride 20 meq/Total Parenteral Nutrition/Amino Acids/Dextrose/ Fat Emulsion Intravenous 1,920 ml @ 80 mls/hr TPN CONT IV Last administered on 10/10/19at 21:54; Start 10/10/19 at 22:00; Stop 10/11/19 at 21:59; Status DC Potassium Acetate 30 meq/Magnesium Sulfate 14 meq/ Multivitamins 10 ml/Chromium/ Copper/Manganese/ Seleni/Zn 1 ml/ Insulin Human Regular 15 unit/ Sodium Chloride 20 meq/Potassium Chloride 30 meq/ Total Parenteral Nutrition/Amino Aci ds/Dextrose/ Fat Emulsion Intravenous 1,920 ml @ 80 mls/hr TPN CONT IV Last administered on 10/11/19at 21:46; Start 10/11/19 at 22:00; Stop 10/12/19 at 21:59; Status DC Sodium Chloride 80 meq/Potassium Chloride 30 meq/ Potassium Acetate 30 meq/Magnesium Sulfate 14 meq/ Multivitamins 10 ml/Chromium/ Copper/Manganese/ Seleni/Zn 1 ml/ Insulin Human Regular 15 unit/ Total Parenteral Nutrition/Amino Acids/Dextrose/ Fat Emulsion Intravenous 1,920 ml @ 80 mls/hr TPN CONT IV Last administered on 10/12/19at 22:33; Start 10/12/19 at 22:00; Stop 10/13/19 at 21:59; Status DC Furosemide (Lasix) 40 mg 1X ONCE IVP Last administered on 10/12/19at 16:27; Start 10/12/19 at 15:30; Stop 10/12/19 at 15:33; Status DC Albumin Human 250 ml @ 62.5 mls/hr 1X ONCE IV Last administered on 10/12/19at 16:27; Start 10/12/19 at 15:30; Stop 10/12/19 at 19:29; Status DC Sodium Chloride 80 meq/Potassium Chloride 30 meq/ Potassium Acetate 30 meq/Magnesium Sulfate 14 meq/ Multivitamins 10 ml/Chromium/ Copper/Manganese/ Seleni/Zn 1 ml/ Insulin Human Regular 15 unit/ Total Parenteral Nutrition/Amino Acids/Dextrose/ Fat Emulsion Intravenous 1,920 ml @ 80 mls/hr TPN CONT IV Last administered on 10/13/19at 22:25; Start 10/13/19 at 22:00; Stop 10/14/19 at 21:59; Status DC Sodium Chloride 80 meq/Potassium Chloride 30 meq/ Potassium Acetate 30 meq/Magnesium Sulfate 14 meq/ Multivitamins 10 ml/Chromium/ Copper/Manganese/ Seleni/Zn 1 ml/ Insulin Human Regular 15 unit/ Total Parenteral Nutrition/Amino Acids/Dextrose/ Fat Emulsion Intravenous 1,920 ml @ 80 mls/hr TPN CONT IV Last administered on 10/14/19at 21:32; Start 10/14/19 at 22:00; Stop 10/15/19 at 21:59; Status DC Sodium Chloride 80 meq/Potassium Chloride 30 meq/ Potassium Acetate 30 meq/Magnesium Sulfate 14 meq/ Multivitamins 10 ml/Chromium/ Copper/Manganese/ Seleni/Zn 1 ml/ Insulin Human Regular 15 unit/ Total Parenteral Nutrition/Amino Acids/Dextrose/ Fat Emulsion Intravenous 1,920 ml @ 80 mls/hr TPN CONT IV Last administered on 10/15/19at 21:53; Start 10/15/19 at 22:00; Stop 10/16/19 at 21:59; Status DC Acetylcysteine (Mucomyst 20% Resp Treatment) 600 mg RTBID NEB Last administered on 11/30/19at 08:46; Start 10/15/19 at 12:00 Sodium Chloride 80 meq/Potassium Chloride 30 meq/ Potassium Acetate 30 meq/Magnesium Sulfate 14 meq/ Multivitamins 10 ml/Chromium/ Copper/Manganese/ Seleni/Zn 1 ml/ Insulin Human Regular 15 unit/ Total Parenteral Nutrition/Amino Acids/Dextrose/ Fat Emulsion Intravenous 1,920 ml @ 80 mls/hr TPN CONT IV Last administered on 10/16/19at 22:06; Start 10/16/19 at 22:00; Stop 10/17/19 at 21:59; Status DC Meropenem 500 mg/ Sodium Chloride 50 ml @ 100 mls/hr Q6HRS IV Last administered on 11/08/19at 06:15; Start 10/16/19 at 18:00; Stop 11/08/19 at 08:23; Status DC Daptomycin 500 mg/ Sodium Chloride 50 ml @ 100 mls/hr Q24H IV Last administered on 10/24/19at 21:47; Start 10/16/19 at 19:00; Stop 10/25/19 at 08:13; Status DC Sodium Chloride 80 meq/Potassium Chloride 30 meq/ Potassium Acetate 30 meq/Magnesium Sulfate 14 meq/ Multivitamins 10 ml/Chromium/ Copper/Manganese/ Seleni/Zn 1 ml/ Insulin Human Regular 15 unit/ Total Parenteral Nutrition/Amino Acids/Dextrose/ Fat Emulsion Intravenous 1,920 ml @ 80 mls/hr TPN CONT IV Last administered on 10/17/19at 22:09; Start 10/17/19 at 22:00; Stop 10/18/19 at 21:59; Status DC Heparin Sodium (Porcine) 1000 unit/Sodium Chloride 1,001 ml @ 1,001 mls/hr 1X ONCE IRR ; Start 10/18/19 at 06:00; Stop 10/18/19 at 06:59; Status DC Propofol (Diprivan) 200 mg STK-MED ONCE IV ; Start 10/18/19 at 07:44; Stop 10/18/19 at 07:44; Status DC Lidocaine HCl (Lidocaine Pf 2% Vial) 5 ml STK-MED ONCE .ROUTE ; Start 10/18/19 at 07:44; Stop 10/18/19 at 07:44; Status DC Fentanyl Citrate (Fentanyl 2ml Vial) 100 mcg STK-MED ONCE .ROUTE ; Start 10/18/19 at 07:44; Stop 10/18/19 at 07:44; Status DC Rocuronium Eugene (Zemuron) 100 mg STK-MED ONCE .ROUTE ; Start 10/18/19 at 07:44; Stop 10/18/19 at 07:44; Status DC Micafungin Sodium 100 mg/Dextrose 100 ml @ 100 mls/hr Q24H IV Last administered on 11/22/19at 09:30; Start 10/18/19 at 08:30; Stop 11/23/19 at 08:20; Status DC Bupivacaine HCl/ Epinephrine Bitart (Sensorcain-Epi 0.5%-1:[id number] Mpf) 30 ml STK-MED ONCE .ROUTE ; Start 10/18/19 at 08:34; Stop 10/18/19 at 08:35; Status DC Iohexol (Omnipaque 300 Mg/ml) 50 ml STK-MED ONCE .ROUTE Last administered on 10/18/19at 13:30; Start 10/18/19 at 08:35; Stop 10/18/19 at 08:35; Status DC Sodium Chloride 80 meq/Potassium Chloride 30 meq/ Potassium Acetate 30 meq/Magnesium Sulfate 14 meq/ Multivitamins 10 ml/Chromium/ Copper/Manganese/ Seleni/Zn 1 ml/ Insulin Human Regular 15 unit/ Total Parenteral Nutrition/Amino Acids/Dextrose/ Fat Emulsion Intravenous 1,920 ml @ 80 mls/hr TPN CONT IV Last administered on 10/19/19at 01:22; Start 10/18/19 at 22:00; Stop 10/19/19 at 21:59; Status DC Phenylephrine HCl (Brayden-Synephrine Inj) 10 mg STK-MED ONCE .ROUTE ; Start 10/18/19 at 10:15; Stop 10/18/19 at 10:15; Status DC Desflurane (Suprane) 90 ml STK-MED ONCE IH ; Start 10/18/19 at 10:18; Stop 10/18/19 at 10:19; Status DC Albumin Human 500 ml @ As Directed STK-MED ONCE IV ; Start 10/18/19 at 11:06; Stop 10/18/19 at 11:06; Status DC Vasopressin (Vasostrict) 20 unit STK-MED ONCE .ROUTE ; Start 10/18/19 at 12:23; Stop 10/18/19 at 12:23; Status DC Phenylephrine HCl (Brayden-Synephrine Inj) 10 mg STK-MED ONCE .ROUTE ; Start 10/18/19 at 13:33; Stop 10/18/19 at 13:33; Status DC Phenylephrine HCl (Brayden-Synephrine Inj) 10 mg STK-MED ONCE .ROUTE ; Start 10/18/19 at 13:33; Stop 10/18/19 at 13:33; Status DC Ondansetron HCl (Zofran) 4 mg STK-MED ONCE .ROUTE ; Start 10/18/19 at 13:33; Stop 10/18/19 at 13:33; Status DC Enoxaparin Sodium (Lovenox 40mg Syringe) 40 mg Q24H SQ Last administered on 11/30/19at 08:28; Start 10/19/19 at 08:00 Sodium Chloride (Normal Saline Flush) 3 ml QSHIFT PRN IV AFTER MEDS AND BLOOD DRAWS; Start 10/18/19 at 14:45; Stop 11/21/19 at 09:45; Status DC Naloxone HCl (Narcan) 0.4 mg PRN Q2MIN PRN IV SEE INSTRUCTIONS; Start 10/18/19 at 14:45; Stop 11/21/19 at 09:45; Status DC Sodium Chloride 1,000 ml @ 25 mls/hr Q24H IV Last administered on 11/20/19at 20:55; Start 10/18/19 at 14:33; Stop 11/21/19 at 09:45; Status DC Morphine Sulfate (Morphine Sulfate) 1 mg PRN Q1HR PRN IV PAIN Last administered on 11/12/19at 18:28; Start 10/18/19 at 14:45; Stop 11/21/19 at 09:45; Status DC Midazolam HCl 100 mg/Sodium Chloride 100 ml @ 1 mls/hr CONT PRN IV SEE I/O RECORD Last administered on 10/21/19at 18:48; Start 10/18/19 at 14:45; Stop 11/21/19 at 09:45; Status DC Phenylephrine HCl (PHENYLEPHRINE in 0.9% NACL PF) 1 mg STK-MED ONCE IV ; Start 10/18/19 at 14:44; Stop 10/18/19 at 14:45; Status DC Ephedrine Sulfate (ePHEDrine PF IN SALINE SYRINGE) 50 mg STK-MED ONCE IV ; Start 10/18/19 at 14:45; Stop 10/18/19 at 14:45; Status DC Vasopressin 20 unit/Dextrose 101 ml @ 12 mls/hr CONT PRN IV SEE I/O RECORD Last administered on 10/25/19at 04:17; Start 10/18/19 at 15:30; Stop 11/21/19 at 09:45; Status DC Sodium Chloride 1,000 ml @ 1,000 mls/hr 1X ONCE IV Last administered on at 15:42; Start 10/18/19 at 15:45; Stop 10/18/19 at 16:44; Status DC Albumin Human 500 ml @ 125 mls/hr 1X ONCE IV ; Start 10/18/19 at 16:00; Stop 10/18/19 at 19:59; Status DC Albumin Human 500 ml @ 125 mls/hr PRN Q1HR PRN IV PER PROTOCOL; Start 10/18/19 at 15:45; Stop 11/21/19 at 09:52; Status DC Magnesium Sulfate 50 ml @ 25 mls/hr 1X ONCE IV Last administered on 10/18/19at 17:02; Start 10/18/19 at 16:30; Stop 10/18/19 at 18:29; Status DC Sodium Bicarbonate (Sodium Bicarb Adult 8.4% Syr) 50 meq STK-MED ONCE .ROUTE ; Start 10/18/19 at 16:20; Stop 10/18/19 at 16:20; Status DC Sodium Bicarbonate (Sodium Bicarb Adult 8.4% Syr) 100 meq 1X ONCE IV Last administered on 10/18/19at 17:07; Start 10/18/19 at 16:30; Stop 10/18/19 at 16:31; Status DC Sodium Bicarbonate 150 meq/Dextrose 1,150 ml @ 75 mls/hr 1X ONCE IV Last administered on 10/18/19at 20:02; Start 10/18/19 at 16:30; Stop 10/19/19 at 07:49; Status DC Sodium Chloride 80 meq/Potassium Chloride 30 meq/ Potassium Acetate 30 meq/Magnesium Sulfate 14 meq/ Multivitamins 10 ml/Chromium/ Copper/Manganese/ Seleni/Zn 1 ml/ Insulin Human Regular 15 unit/ Total Parenteral Nutrition/Amino Acids/Dextrose/ Fat Emulsion Intravenous 1,920 ml @ 80 mls/hr TPN CONT IV Last administered on 10/19/19at 23:05; Start 10/19/19 at 22:00; Stop 10/20/19 at 21:59; Status DC Sodium Chloride 100 meq/Potassium Chloride 30 meq/ Potassium Acetate 30 me q/Magnesium Sulfate 12 meq/ Multivitamins 10 ml/Chromium/ Copper/Manganese/ Seleni/Zn 1 ml/ Insulin Human Regular 15 unit/ Total Parenteral Nutrition/Amino Acids/Dextrose/ Fat Emulsion Intravenous 1,920 ml @ 80 mls/hr TPN CONT IV Last administered on 10/20/19at 21:52; Start 10/20/19 at 22:00; Stop 10/21/19 at 21:59; Status DC Sodium Chloride 100 meq/Potassium Chloride 30 meq/ Potassium Acetate 30 meq/Magnesium Sulfate 12 meq/ Multivitamins 10 ml/Chromium/ Copper/Manganese/ Seleni/Zn 1 ml/ Insulin Human Regular 15 unit/ Total Parenteral Nutrition/Amino Acids/Dextrose/ Fat Emulsion Intravenous 1,920 ml @ 80 mls/hr TPN CONT IV Last administered on 10/21/19at 21:46; Start 10/21/19 at 22:00; Stop 10/22/19 at 21:59; Status DC Sodium Chloride 100 meq/Potassium Chloride 30 meq/ Potassium Acetate 30 meq/Magnesium Sulfate 12 meq/ Multivitamins 10 ml/Chromium/ Copper/Manganese/ Seleni/Zn 1 ml/ Insulin Human Regular 15 unit/ Total Parenteral Nutrition/Amino Acids/Dextrose/ Fat Emulsion Intravenous 1,800 ml @ 75 mls/hr TPN CONT IV Last administered on 10/22/19at 22:04; Start 10/22/19 at 22:00; Stop 10/23/19 at 21:59; Status DC Fentanyl Citrate 55 ml @ 0 mls/hr CONT PRN IV SEE COMMENTS Last administered on 10/24/19at 23:55; Start 10/22/19 at 13:00; Stop 10/27/19 at 17:28; Status DC Sodium Chloride 100 meq/Potassium Chloride 30 meq/ Potassium Acetate 30 meq/Magnesium Sulfate 12 meq/ Multivitamins 10 ml/Chromium/ Copper/Manganese/ Seleni/Zn 1 ml/ Insulin Human Regular 15 unit/ Total Parenteral Nutrition/Amino Acids/Dextrose/ Fat Emulsion Intravenous 1,680 ml @ 70 mls/hr TPN CONT IV Last administered on 10/23/19at 21:23; Start 10/23/19 at 22:00; Stop 10/24/19 at 21:59; Status DC Sodium Chloride 110 meq/Potassium Chloride 30 meq/ Potassium Acetate 30 meq/Magnesium Sulfate 15 meq/ Multivitamins 10 ml/Chromium/ Copper/Manganese/ Seleni/Zn 1 ml/ Insulin Human Regular 15 unit/ Total Parenteral Nutrition/Amino Acids/Dextrose/ Fat Emulsion Intravenous 1,680 ml @ 70 mls/hr TPN CONT IV Last administered on 10/24/19at 21:48; Start 10/24/19 at 22:00; Stop 10/25/19 at 21:59; Status DC Sodium Chloride 110 meq/Potassium Chloride 30 meq/ Potassium Acetate 30 meq/Magnesium Sulfate 15 meq/ Multivitamins 10 ml/Chromium/ Copper/Manganese/ Seleni/Zn 1 ml/ Insulin Human Regular 15 unit/ Total Parenteral Nutrition/Amino Acids/Dextrose/ Fat Emulsion Intravenous 1,680 ml @ 70 mls/hr TPN CONT IV Last administered on 10/25/19at 21:33; Start 10/25/19 at 22:00; Stop 10/26/19 at 21:59; Status DC Sodium Chloride 110 meq/Potassium Chloride 30 meq/ Potassium Acetate 30 meq/Magnesium Sulfate 15 meq/ Multivitamins 10 ml/Chromium/ Copper/Manganese/ Seleni/Zn 1 ml/ Insulin Human Regular 15 unit/ Total Parenteral Nutrition/Amino Acids/Dextrose/ Fat Emulsion Intravenous 1,680 ml @ 70 mls/hr TPN CONT IV Last administered on 10/26/19at 21:51; Start 10/26/19 at 22:00; Stop 10/27/19 at 21:59; Status DC Sodium Chloride 90 meq/Potassium Chloride 30 meq/ Potassium Acetate 30 meq/Magnesium Sulfate 15 meq/ Multivitamins 10 ml/Chromium/ Copper/Manganese/ Seleni/Zn 1 ml/ Insulin Human Regular 15 unit/ Total Parenteral Nutrition/Amino Acids/Dextrose/ Fat Emulsion Intravenous 1,680 ml @ 70 mls/hr TPN CONT IV Last administered on 10/27/19at 22:38; Start 10/27/19 at 22:00; Stop 10/28/19 at 21:59; Status DC Fentanyl Citrate 30 ml @ 0 mls/hr CONT PRN IV SEE I/O RECORD; Start 10/27/19 at 17:30; Stop 11/21/19 at 09:45; Status DC Fentanyl (Duragesic 12mcg/ Hr Patch) 1 patch Q3DAYS TD Last administered on 11/30/19at 08:28; Start 10/28/19 at 09:00 Sodium Chloride 90 meq/Potassium Chloride 30 meq/ Potassium Acetate 30 meq/Magnesium Sulfate 15 meq/ Multivitamins 10 ml/Chromium/ Copper/Manganese/ Seleni/Zn 1 ml/ Insulin Human Regular 15 unit/ Total Parenteral Nutrition/Amino Acids/Dextrose/ Fat Emulsion Intravenous 1,680 ml @ 70 mls/hr TPN CONT IV Last administered on 10/28/19at 21:59; Start 10/28/19 at 22:00; Stop 10/29/19 at 21:59; Status DC Sodium Chloride 90 meq/Potassium Chloride 30 meq/ Potassium Acetate 30 meq/Magnesium Sulfate 15 meq/ Multivitamins 10 ml/Chromium/ Copper/Manganese/ Seleni/Zn 1 ml/ Insulin Human Regular 15 unit/ Total Parenteral Nutrition/Amino Acids/Dextrose/ Fat Emulsion Intravenous 1,680 ml @ 70 mls/hr TPN CONT IV Last administered on 10/29/19at 21:35; Start 10/29/19 at 22:00; Stop 10/30/19 at 21:59; Status DC Vancomycin HCl (Vanco Per Pharmacy) 1 each PRN DAILY PRN MC SEE COMMENTS Last administered on 11/01/19at 02:46; Start 10/30/19 at 09:15; Stop 11/02/19 at 07:41; Status DC Ciprofloxacin/ Dextrose 200 ml @ 200 mls/hr Q12HR IV Last administered on 11/07/19at 21:02; Start 10/30/19 at 10:00; Stop 11/08/19 at 08:20; Status DC Vancomycin HCl 2 gm/Sodium Chloride 500 ml @ 250 mls/hr 1X ONCE IV Last administered on 10/30/19at 10:34; Start 10/30/19 at 10:00; Stop 10/30/19 at 11:59; Status DC Sodium Chloride 90 meq/Potassium Chloride 30 meq/ Potassium Acetate 30 meq/Magnesium Sulfate 15 meq/ Multivitamins 10 ml/Chromium/ Copper/Manganese/ Seleni/Zn 1 ml/ Insulin Human Regular 15 unit/ Total Parenteral Nutrition/Amino Acids/Dextrose/ Fat Emulsion Intravenous 1,680 ml @ 70 mls/hr TPN CONT IV Last administered on 10/30/19at 22:02; Start 10/30/19 at 22:00; Stop 10/31/19 at 21:59; Status DC Diphenhydramine HCl (Benadryl) 25 mg 1X ONCE IVP Last administered on 10/30/19at 14:26; Start 10/30/19 at 14:30; Stop 10/30/19 at 14:31; Status DC Vancomycin HCl 1.5 gm/Sodium Chloride 500 ml @ 250 mls/hr Q8H IV Last administered on 10/31/19at 03:08; Start 10/30/19 at 18:30; Stop 10/31/19 at 12:24; Status DC Vancomycin HCl (Vancomycin Trough Level) 1 each 1X ONCE MC Last administered on 10/31/19at 10:00; Start 10/31/19 at 10:00; Stop 10/31/19 at 10:01; Status DC Sodium Chloride 90 meq/Potassium Chloride 30 meq/ Potassium Acetate 30 meq/Magnesium Sulfate 15 meq/ Multivitamins 10 ml/Chromium/ Copper/Manganese/ Seleni/Zn 1 ml/ Insulin Human Regular 15 unit/ Total Parenteral Nutrition/Amino Acids/Dextrose/ Fat Emulsion Intravenous 1,680 ml @ 70 mls/hr TPN CONT IV Last administered on 10/31/19at 22:13; Start 10/31/19 at 22:00; Stop 11/01/19 at 21:59; Status DC Vancomycin HCl (Vancomycin Random Level) 1 each 1X ONCE MC Last administered on 11/01/19at 01:00; Start 11/01/19 at 01:00; Stop 11/01/19 at 01:01; Status DC Vancomycin HCl 1.5 gm/Sodium Chloride 500 ml @ 250 mls/hr Q12H IV Last administered on 11/01/19at 22:07; Start 11/01/19 at 10:00; Stop 11/02/19 at 07:41; Status DC Vancomycin HCl (Vancomycin Trough Level) 1 each 1X ONCE MC ; Start 11/02/19 at 09:30; Stop 11/02/19 at 09:31; Status Cancel Sodium Chloride 90 meq/Potassium Chloride 30 meq/ Potassium Acetate 30 meq/Magnesium Sulfate 15 meq/ Multivitamins 10 ml/Chromium/ Copper/Manganese/ Seleni/Zn 1 ml/ Insulin Human Regular 15 unit/ Total Parenteral Nutrition/Amino Acids/Dextrose/ Fat Emulsion Intravenous 1,680 ml @ 70 mls/hr TPN CONT IV Last administered on 11/01/19at 22:08; Start 11/01/19 at 22:00; Stop 11/02/19 at 21:59; Status DC Alteplase, Recombinant (Cathflo For Central Catheter Clearance) 1 mg 1X ONCE INT CAT Last administered on 11/01/19at 11:49; Start 11/01/19 at 11:00; Stop 11/01/19 at 11:01; Status DC Daptomycin 500 mg/ Sodium Chloride 50 ml @ 100 mls/hr Q24H IV Last administered on 11/11/19at 08:25; Start 11/02/19 at 09:00; Stop 11/11/19 at 08:38; Status DC Sodium Chloride 90 meq/Potassium Chloride 30 meq/ Potassium Acetate 30 meq/Magnesium Sulfate 15 meq/ Multivitamins 10 ml/Chromium/ Copper/Manganese/ Seleni/Zn 1 ml/ Insulin Human Regular 15 unit/ Total Parenteral Nutrition/Amino Acids/Dextrose/ Fat Emulsion Intravenous 1,680 ml @ 70 mls/hr TPN CONT IV Last administered on 11/02/19at 22:55; Start 11/02/19 at 22:00; Stop 11/03/19 at 21:59; Status DC Sodium Chloride 90 meq/Potassium Chloride 30 meq/ Potassium Acetate 30 meq/Magnesium Sulfate 15 meq/ Multivitamins 10 ml/Chromium/ Copper/Manganese/ Seleni/Zn 1 ml/ Insulin Human Regular 15 unit/ Total Parenteral Nutrition/Amino Acids/Dextrose/ Fat Emulsion Intravenous 1,680 ml @ 70 mls/hr TPN CONT IV Last administered on 11/03/19at 22:06; Start 11/03/19 at 22:00; Stop 11/04/19 at 21:59; Status DC Diphenhydramine HCl (Benadryl) 50 mg STK-MED ONCE .ROUTE ; Start 11/03/19 at 18:34; Stop 11/03/19 at 18:35; Status DC Diphenhydramine HCl (Benadryl) 25 mg 1X ONCE IM ; Start 11/03/19 at 18:45; Stop 11/03/19 at 18:46; Status DC Diphenhydramine HCl (Benadryl) 25 mg 1X ONCE IVP Last administered on 11/03/19at 18:56; Start 11/03/19 at 19:00; Stop 11/03/19 at 19:01; Status DC Alprazolam (Xanax) 0.5 mg PRN TID PRN PO ANXIETY / AGITATION Last administered on 11/10/19at 11:49; Start 11/04/19 at 08:00; Stop 11/10/19 at 15:54; Status DC Sodium Chloride 110 meq/Potassium Chloride 30 meq/ Potassium Acetate 30 meq/Magnesium Sulfate 15 meq/ Multivitamins 10 ml/Chromium/ Copper/Manganese/ Seleni/Zn 1 ml/ Insulin Human Regular 15 unit/ Total Parenteral Nutrition/Amino Acids/Dextrose/ Fat Emulsion Intravenous 1,680 ml @ 70 mls/hr TPN CONT IV Last administered on 11/04/19at 21:21; Start 11/04/19 at 22:00; Stop 11/05/19 at 21:59; Status DC Sodium Chloride 110 meq/Potassium Chloride 30 meq/ Potassium Acetate 30 meq/Magnesium Sulfate 15 meq/ Multivitamins 10 ml/Chromium/ Copper/Manganese/ Seleni/Zn 1 ml/ Insulin Human Regular 15 unit/ Total Parenteral Nutrition/Amino Acids/Dextrose/ Fat Emulsion Intravenous 1,680 ml @ 70 mls/hr TPN CONT IV Last administered on 11/05/19at 22:01; Start 11/05/19 at 22:00; Stop 11/06/19 at 21:59; Status DC Alteplase, Recombinant (Cathflo For Central Catheter Clearance) 1 mg 1X ONCE INT CAT Last administered on 11/06/19at 08:23; Start 11/06/19 at 08:15; Stop 11/06/19 at 08:16; Status DC Sodium Chloride 110 meq/Sodium Phosphate 10 mmol/ Potassium Chloride 30 meq/ Potassium Acetate 30 meq/Magnesium Sulfate 15 meq/ Multivitamins 10 ml/Chromium/ Copper/Manganese/ Seleni/Zn 1 ml/ Insulin Human Regular 15 unit/ Total Parenteral Nutrition/Amino Acids/Dextrose/ Fat Emulsion Intravenous 1,680 ml @ 70 mls/hr TPN CONT IV Last administered on 11/06/19at 22:03; Start 11/06/19 at 22:00; Stop 11/07/19 at 21:59; Status DC Sodium Chloride 120 meq/Sodium Phosphate 10 mmol/ Potassium Chloride 30 meq/ Potassium Acetate 30 meq/Magnesium Sulfate 15 meq/ Multivitamins 10 ml/Chromium/ Copper/Manganese/ Seleni/Zn 1 ml/ Insulin Human Regular 15 unit/ Total Parenteral Nutrition/Amino Acids/Dextrose/ Fat Emulsion Intravenous 1,680 ml @ 70 mls/hr TPN CONT IV Last administered on 11/07/19at 22:08; Start 11/07/19 at 22:00; Stop 11/08/19 at 21:59; Status DC Ceftazidime/ Avibactam 2.5 gm/ Sodium Chloride 100 ml @ 50 mls/hr Q8HRS IV Last administered on 11/09/19at 05:32; Start 11/08/19 at 14:00; Stop 11/09/19 at 07:48; Status DC Alteplase, Recombinant (Cathflo For Central Catheter Clearance) 1 mg 1X ONCE INT CAT Last administered on 11/08/19at 09:30; Start 11/08/19 at 09:30; Stop 11/08/19 at 09:31; Status DC Sodium Chloride 120 meq/Sodium Phosphate 10 mmol/ Potassium Chloride 30 meq/ Potassium Acetate 30 meq/Magnesium Sulfate 15 meq/ Multivitamins 10 ml/Chromium/ Copper/Manganese/ Seleni/Zn 1 ml/ Insulin Human Regular 15 unit/ Total Parenteral Nutrition/Amino Acids/Dextrose/ Fat Emulsion Intravenous 1,680 ml @ 70 mls/hr TPN CONT IV Last administered on 11/08/19at 22:11; Start 11/08/19 at 22:00; Stop 11/09/19 at 21:59; Status DC Iohexol (Omnipaque 300 Mg/ml) 75 ml 1X ONCE IV Last administered on 11/08/19at 11:30; Start 11/08/19 at 11:30; Stop 11/08/19 at 11:31; Status DC Info (CONTRAST GIVEN -- Rx MONITORING) 1 each PRN DAILY PRN MC SEE COMMENTS; Start 11/08/19 at 11:45; Stop 11/10/19 at 11:44; Status DC Alteplase, Recombinant (Cathflo For Central Catheter Clearance) 1 mg 1X ONCE INT CAT Last administered on 11/08/19at 12:17; Start 11/08/19 at 12:00; Stop 11/08/19 at 12:01; Status DC Cefepime HCl (Maxipime) 2 gm Q12HR IVP Last administered on 11/09/19at 20:53; Start 11/09/19 at 09:00; Stop 11/10/19 at 07:30; Status DC Sodium Chloride 120 meq/Sodium Phosphate 10 mmol/ Potassium Chloride 30 meq/ Potassium Acetate 30 meq/Magnesium Sulfate 15 meq/ Multivitamins 10 ml/Chromium/ Copper/Manganese/ Seleni/Zn 1 ml/ Insulin Human Regular 15 unit/ Total Parenter al Nutrition/Amino Acids/Dextrose/ Fat Emulsion Intravenous 1,680 ml @ 70 mls/hr TPN CONT IV Last administered on 11/09/19at 21:25; Start 11/09/19 at 22:00; Stop 11/10/19 at 21:59; Status DC Ceftazidime/ Avibactam 2.5 gm/ Sodium Chloride 250 ml @ 125 mls/hr Q8HRS IV Last administered on 11/23/19at 05:38; Start 11/10/19 at 08:00; Stop 11/23/19 at 08:20; Status DC Sodium Chloride 120 meq/Sodium Phosphate 10 mmol/ Potassium Chloride 30 meq/ Potassium Acetate 30 meq/Magnesium Sulfate 15 meq/ Multivitamins 10 ml/Chromium/ Copper/Manganese/ Seleni/Zn 1 ml/ Insulin Human Regular 15 unit/ Total Parenteral Nutrition/Amino Acids/Dextrose/ Fat Emulsion Intravenous 1,680 ml @ 70 mls/hr TPN CONT IV Last administered on 11/10/19at 22:35; Start 11/10/19 at 22:00; Stop 11/11/19 at 21:59; Status DC Alprazolam (Xanax) 0.5 mg PRN QID PRN PO ANXIETY / AGITATION Last administered on 11/30/19at 01:55; Start 11/10/19 at 16:00 Acetaminophen/ Hydrocodone Bitart (Lortab 5/325) 1 tab PRN Q4HRS PRN PO PAIN Last administered on 11/30/19at 01:40; Start 11/10/19 at 16:00 Sodium Chloride 120 meq/Sodium Phosphate 10 mmol/ Potassium Chloride 30 meq/ Potassium Acetate 30 meq/Magnesium Sulfate 15 meq/ Multivitamins 10 ml/Chromium/ Copper/Manganese/ Seleni/Zn 1 ml/ Insulin Human Regular 15 unit/ Total Parenteral Nutrition/Amino Acids/Dextrose/ Fat Emulsion Intravenous 1,680 ml @ 70 mls/hr TPN CONT IV Last administered on 11/11/19at 21:50; Start 11/11/19 at 22:00; Stop 11/12/19 at 21:59; Status DC Sodium Chloride 120 meq/Sodium Phosphate 10 mmol/ Potassium Chloride 30 meq/ Potassium Acetate 30 meq/Magnesium Sulfate 15 meq/ Multivitamins 10 ml/Chromium/ Copper/Manganese/ Seleni/Zn 1 ml/ Insulin Human Regular 15 unit/ Total Parenteral Nutrition/Amino Acids/Dextrose/ Fat Emulsion Intravenous 1,680 ml @ 70 mls/hr TPN CONT IV Last administered on 11/12/19at 22:14; Start 11/12/19 at 22:00; Stop 11/13/19 at 21:59; Status DC Daptomycin 500 mg/ Sodium Chloride 50 ml @ 100 mls/hr Q24H IV Last administered on 11/22/19at 09:20; Start 11/13/19 at 09:00; Stop 11/23/19 at 08:20; Status DC Sodium Chloride 120 meq/Sodium Phosphate 10 mmol/ Potassium Chloride 30 meq/ Potassium Acetate 30 meq/Magnesium Sulfate 15 meq/ Multivitamins 10 ml/Chromium/ Copper/Manganese/ Seleni/Zn 1 ml/ Insulin Human Regular 15 unit/ Total Parenteral Nutrition/Amino Acids/Dextrose/ Fat Emulsion Intravenous 1,680 ml @ 70 mls/hr TPN CONT IV ; Start 11/13/19 at 22:00; Stop 11/14/19 at 21:59; Status Cancel Amino Acids/ Glycerin/ Electrolytes 1,000 ml @ 80 mls/hr [id number] IV Last ad ministered on 11/19/19at 18:10; Start 11/13/19 at 10:15; Stop 11/20/19 at 07:07; Status DC Iohexol (Omnipaque 300 Mg/ml) 50 ml 1X ONCE IJ ; Start 11/15/19 at 11:00; Stop 11/15/19 at 11:01; Status DC Sodium Chloride 500 ml @ 500 mls/hr 1X ONCE IV Last administered on 11/15/19at 18:30; Start 11/15/19 at 18:30; Stop 11/15/19 at 19:29; Status DC Lidocaine HCl (Buffered Lidocaine 1%) 3 ml 1X ONCE INJ ; Start 11/17/19 at 12:15; Stop 11/17/19 at 12:17; Status DC Fentanyl Citrate (Fentanyl 2ml Vial) 25 mcg PRN Q6HRS PRN IVP SEE INSTUCTIONS Last administered on 11/27/19at 06:00; Start 11/21/19 at 10:00 Sodium Chloride 1,000 ml @ 125 mls/hr Q8H IV Last administered on 11/21/19at 23:16; Start 11/21/19 at 23:21; Stop 11/22/19 at 09:23; Status DC Sodium Chloride 1,000 ml @ 350 mls/hr 1X ONCE IV Last administered on 11/21/19at 20:29; Start 11/21/19 at 20:30; Stop 11/21/19 at 23:21; Status DC Vitamin A/Vitamin D (Vitamin A & D Ointment) 1 ramu PRN Q1HR PRN TP SKIN PROTECTION Last administered on 11/29/19at 10:44; Start 11/22/19 at 09:15 Iohexol (Omnipaque 240 Mg/ml) 50 ml STK-MED ONCE .ROUTE ; Start 11/22/19 at 14:18; Stop 11/22/19 at 14:19; Status DC Lidocaine HCl (Buffered Lidocaine 1%) 3 ml STK-MED ONCE .ROUTE ; Start 11/22/19 at 14:19; Stop 11/22/19 at 14:19; Status DC Fentanyl Citrate (Fentanyl 2ml Vial) 100 mcg STK-MED ONCE .ROUTE ; Start 11/22/19 at 15:03; Stop 11/22/19 at 15:03; Status DC Lidocaine HCl (Buffered Lidocaine 1%) 5 ml 1X ONCE INJ Last administered on 11/22/19at 15:00; Start 11/22/19 at 15:45; Stop 11/22/19 at 15:46; Status DC Iohexol (Omnipaque 240 Mg/ml) 10 ml 1X ONCE IJ Last administered on 11/22/19at 15:00; Start 11/22/19 at 15:45; Stop 11/22/19 at 15:46; Status DC Multivitamins/ Minerals Therapeutic (Centrum Multivit-Mineral Liq) 5 ml DAILY PEG Last administered on 11/30/19at 08:28; Start 11/23/19 at 09:00 Alteplase, Recombinant 5 mg/ Sodium Chloride 30 ml @ 30 mls/hr 1X PRN IV SEE COMMENTS; Start 11/23/19 at 06:45; Status UNV Alteplase, Recombinant (Cathflo For Central Catheter Clearance) 1 mg 1X ONCE INT CAT Last administered on 11/23/19 09:30; Start 11/23/19 at 07:00; Stop 11/23/19 at 07:01; Status DC Sodium Chloride 1,000 ml @ 125 mls/hr 1X ONCE IV Last administered on 11/23/19at 16:12; Start 11/23/19 at 14:30; Stop 11/23/19 at 22:29; Status DC Furosemide (Lasix) 40 mg 1X ONCE IVP Last administered on 11/23/19at 16:17; Start 11/23/19 at 14:30; Stop 11/23/19 at 14:33; Status DC Furosemide (Lasix) 40 mg [id number] IVP Last administered on 11/24/19at 13:51; Start 11/24/19 at 09:00; Stop 11/24/19 at 14:01; Status DC Sodium Chloride 1,000 ml @ 125 mls/hr 1X ONCE IV Last administered on 11/24/19at 08:20; Start 11/24/19 at 07:45; Stop 11/24/19 at 15:44; Status DC Calcitonin [place] (Miacalcin) 400 unit BID SQ Last administered on 11/24/19at 18:18; Start 11/24/19 at 18:00; Stop 11/25/19 at 15:56; Status DC Zoledronic Acid 100 ml @ 400 mls/hr 1X ONCE IV Last administered on 11/25/19at 13:04; Start 11/25/19 at 12:00; Stop 11/25/19 at 12:14; Status DC Metoprolol Tartrate (Lopressor Vial) 5 mg 1X ONCE IVP Last administered on at 10:54; Start 11/27/19 at 10:45; Stop 11/27/19 at 10:46; Status DC Cefepime HCl (Maxipime) 2 gm Q12HR IVP Last administered on 11/30/19at 08:29; Start 11/28/19 at 10:00 Metronidazole 100 ml @ 100 mls/hr Q12HR IV Last administered on 11/30/19at 08:29; Start 11/28/19 at 10:00 Sodium Chloride 1,000 ml @ 75 mls/hr [id number] IV Last administered on 11/29/19at 09:55; Start 11/28/19 at 18:45; Stop 11/30/19 at 11:12; Status DC Sodium Chloride 1,000 ml @ 1,000 mls/hr 1X ONCE IV Last administered on 11/29/19at 14:00; Start 11/29/19 at 14:00; Stop 11/29/19 at 14:59; Status DC Ringer's Solution 1,000 ml @ 150 mls/hr [id number] IV Last administered on 11/30/19at 03:32; Start 11/29/19 at 14:30 Sodium Bicarbonate (Sodium Bicarb Adult 8.4% Syr) 100 meq 1X ONCE IV Last administered on 11/29/19at 14:32; Start 11/29/19 at 14:30; Stop 11/29/19 at 14:35; Status DC Sodium Bicarbonate (Sodium Bicarb Adult 8.4% Syr) 50 meq STK-MED ONCE .ROUTE ; Start 11/29/19 at 14:30; Stop 11/29/19 at 14:30; Status DC Sodium Chloride 1,000 ml @ 1,000 mls/hr 1X ONCE IV Last administered on 11/30/19at 09:18; Start 11/30/19 at 08:45; Stop 11/30/19 at 09:44; Status DC Active Scripts Active Reported Bisoprolol Fumarate 5 Mg Tablet 10 Mg PO DAILY Vitals/I & O Vital Sign - Last 24 Hours 11/29/19 11/29/19 11/29/19 11/29/19 13:13 13:36 13:50 14:01 Pulse 150 142 B/P (MAP) 73/37 (49) 77/32 (47) 93/39 (57) Pulse Ox 100 100 100 O2 Delivery Nasal Cannula Nasal Cannula Nasal Cannula O2 Flow Rate 2.0 4.0 4.0 11/29/19 11/29/19 11/29/19 11/29/19 14:05 14:17 14:41 14:51 Pulse 134 132 B/P (MAP) 88/52 (64) 87/52 (64) Pulse Ox 95 99 O2 Delivery Nasal Cannula Nasal Cannula Nasal Cannula Nasal Cannula O2 Flow Rate 4.0 4.0 4.0 4.0 11/29/19 11/29/19 11/29/19 11/29/19 15:00 15:15 15:17 15:45 Temp 99.0 99.0 Pulse 129 128 129 Resp 24 B/P (MAP) 99/53 (68) 93/53 (66) 93/56 (68) Pulse Ox 99 100 100 O2 Delivery Nasal Cannula Nasal Cannula Nasal Cannula Nasal Cannula O2 Flow Rate 3.0 4.0 4.0 4.0 11/29/19 11/29/19 11/29/19 11/29/19 16:15 16:30 16:54 19:30 Temp 97.6 97.6 Pulse 125 125 125 Resp 38 B/P (MAP) 95/58 (70) 88/58 (68) 92/47 (62) Pulse Ox 100 100 100 98 O2 Delivery Nasal Cannula Nasal Cannula Nasal Cannula Nasal Cannula O2 Flow Rate 4.0 4.0 2.0 2.0 11/29/19 11/29/19 11/29/19 11/29/19 20:00 20:09 20:47 21:47 Resp 40 38 Pulse Ox 100 100 100 O2 Delivery Nasal Cannula Nasal Cannula Nasal Cannula Nasal Cannula O2 Flow Rate 2.0 2.0 2.0 2.0 11/29/19 11/29/19 11/30/19 11/30/19 23:20 23:54 01:40 02:40 Temp 97.9 97.9 Pulse 123 Resp 36 38 40 B/P (MAP) 108/69 (82) Pulse Ox 100 100 100 100 O2 Delivery Nasal Cannula Nasal Cannula Nasal Cannula Nasal Cannula O2 Flow Rate 2.0 1.0 1.0 1.0 11/30/19 11/30/19 11/30/19 11/30/19 03:39 03:45 07:00 08:28 Temp 97.8 97.6 97.8 97.6 Pulse 122 119 Resp 28 28 B/P (MAP) 103/56 (72) 103/64 (77) Pulse Ox 100 100 94 100 O2 Delivery Nasal Cannula Nasal Cannula Room Air Nasal Cannula O2 Flow Rate 1.0 2.0 2.0 11/30/19 08:59 Pulse Ox 98 O2 Delivery Room Air Intake and Output 11/29/19 11/29/19 11/30/19 15:00 23:00 07:00 Intake Total 1190 ml 1203 ml 1059 ml Output Total 0 ml 1200 ml 725 ml Balance 1190 ml 3 ml 334 ml Justicifation of Admission Dx: Justifications for Admission: Justification of Admission Dx: Yes GREG HERRERA MD Nov 30, 2019 11:35
[2019-11-30] MEDS: ONDANSETRON PF 4 MG/2 ML VIAL. IV PRN (12:43)
--- NOTE | 2019-11-30 13:17 | PDOC ---
SURGICAL PROGRESS NOTE DATE: 11/30/19 TIME: 13:16 Subjective Patient sitting up in a chair Vital Signs Vital Signs Date Time Temp Pulse Resp B/P (MAP) Pulse Ox O2 Delivery O2 Flow Rate FiO2 11/30/19 12:42 100 Nasal Cannula 2.0 11/30/19 11:00 97.9 146 34 118/57 (77) 97.9 I&O Intake and Output 11/30/19 07:00 Intake Total 3452 ml Output Total 1925 ml Balance 1527 ml Intake Oral 0 ml IV Total 1100 ml Tube Feeding 2352 ml Output Urine Total 175 ml Gastric Drainage Total 350 ml Drainage Total 1400 ml # Bowel Movements 5 PATIENT HAS A ROSARIO: Yes General: Cooperative, mild distress Abdomen: Normal bowel sounds, Soft, No tenderness Labs Laboratory Tests Test 11/28/19 18:38 11/29/19 00:25 11/29/19 05:30 11/29/19 05:34 Glucose (Fingerstick) 210 mg/dL (70-99) 185 mg/dL (70-99) 190 mg/dL (70-99) Sodium Level 147 mmol/L (136-145) Potassium Level 5.9 mmol/L (3.5-5.1) Chloride Level 113 mmol/L (98-107) Carbon Dioxide Level 25 mmol/L (21-32) Anion Gap 9 (6-14) Blood Urea Nitrogen 61 mg/dL (7-20) Creatinine 1.8 mg/dL (0.6-1.0) Estimated GFR (Cockcroft-Gault) 29.9 Glucose Level 209 mg/dL (70-99) Calcium Level 8.2 mg/dL (8.5-10.1) Test 11/29/19 12:20 11/29/19 13:42 11/29/19 14:30 11/29/19 18:09 Glucose (Fingerstick) 172 mg/dL (70-99) 194 mg/dL (70-99) O2 Saturation 98 % (92-99) Arterial Blood pH 7.29 (7.35-7.45) Arterial Blood pCO2 at Patient Temp 35 mmHg (35-46) Arterial Blood pO2 at Patient Temp 105 mmHg (75-108) Arterial Blood HCO3 17 mmol/L (21-28) Arterial Blood Base Excess -9 mmol/L (-3-3) FiO2 4l n.c. White Blood Count 19.3 x10^3/uL (4.0-11.0) Red Blood Count 2.64 x10^6/uL (3.50-5.40) Hemoglobin 7.4 g/dL (12.0-15.5) Hematocrit 23.4 % (36.0-47.0) Mean Corpuscular Volume 89 fL (79-100) Mean Corpuscular Hemoglobin 28 pg (25-35) Mean Corpuscular Hemoglobin Concent 32 g/dL (31-37) Red Cell Distribution Width 20.0 % (11.5-14.5) Platelet Count 439 x10^3/uL (140-400) Neutrophils (%) (Auto) 93 % (31-73) Lymphocytes (%) (Auto) 2 % (24-48) Monocytes (%) (Auto) 4 % (0-9) Eosinophils (%) (Auto) 0 % (0-3) Basophils (%) (Auto) 0 % (0-3) Neutrophils # (Auto) 18.0 x10^3/uL (1.8-7.7) Lymphocytes # (Auto) 0.4 x10^3/uL (1.0-4.8) Monocytes # (Auto) 0.8 x10^3/uL (0.0-1.1) Eosinophils # (Auto) 0.0 x10^3/uL (0.0-0.7) Basophils # (Auto) 0.0 x10^3/uL (0.0-0.2) Sodium Level 154 mmol/L (136-145) Potassium Level 5.2 mmol/L (3.5-5.1) Chloride Level 117 mmol/L (98-107) Carbon Dioxide Level 29 mmol/L (21-32) Anion Gap 8 (6-14) Blood Urea Nitrogen 69 mg/dL (7-20) Creatinine 2.2 mg/dL (0.6-1.0) Estimated GFR (Cockcroft-Gault) 23.7 BUN/Creatinine Ratio 31 (6-20) Glucose Level 219 mg/dL (70-99) Lactic Acid Level 3.3 mmol/L (0.4-2.0) Calcium Level 7.4 mg/dL (8.5-10.1) Total Bilirubin 0.3 mg/dL (0.2-1.0) Aspartate Amino Transf (AST/SGOT) 15 U/L (15-37) Alanine Aminotransferase (ALT/SGPT) 10 U/L (14-59) Alkaline Phosphatase 76 U/L (46-116) Total Protein 4.9 g/dL (6.4-8.2) Albumin 1.3 g/dL (3.4-5.0) Albumin/Globulin Ratio 0.4 (1.0-1.7) Test 11/29/19 21:30 11/30/19 00:38 11/30/19 05:15 11/30/19 07:19 Lactic Acid Level 2.8 mmol/L (0.4-2.0) Glucose (Fingerstick) 167 mg/dL (70-99) 166 mg/dL (70-99) White Blood Count 13.8 x10^3/uL (4.0-11.0) Red Blood Count 2.64 x10^6/uL (3.50-5.40) Hemoglobin 7.3 g/dL (12.0-15.5) Hematocrit 23.7 % (36.0-47.0) Mean Corpuscular Volume 90 fL (79-100) Mean Corpuscular Hemoglobin 28 pg (25-35) Mean Corpuscular Hemoglobin Concent 31 g/dL (31-37) Red Cell Distribution Width 19.6 % (11.5-14.5) Platelet Count 397 x10^3/uL (140-400) Neutrophils (%) (Auto) 87 % (31-73) Lymphocytes (%) (Auto) 7 % (24-48) Monocytes (%) (Auto) 5 % (0-9) Eosinophils (%) (Auto) 1 % (0-3) Basophils (%) (Auto) 0 % (0-3) Neutrophils # (Auto) 12.0 x10^3/uL (1.8-7.7) Lymphocytes # (Auto) 0.9 x10^3/uL (1.0-4.8) Monocytes # (Auto) 0.7 x10^3/uL (0.0-1.1) Eosinophils # (Auto) 0.2 x10^3/uL (0.0-0.7) Basophils # (Auto) 0.0 x10^3/uL (0.0-0.2) Sodium Level 152 mmol/L (136-145) Potassium Level 4.6 mmol/L (3.5-5.1) Chloride Level 117 mmol/L (98-107) Carbon Dioxide Level 26 mmol/L (21-32) Anion Gap 9 (6-14) Blood Urea Nitrogen 76 mg/dL (7-20) Creatinine 2.1 mg/dL (0.6-1.0) Estimated GFR (Cockcroft-Gault) 25.0 BUN/Creatinine Ratio 36 (6-20) Glucose Level 171 mg/dL (70-99) Calcium Level 7.4 mg/dL (8.5-10.1) Total Bilirubin 0.2 mg/dL (0.2-1.0) Aspartate Amino Transf (AST/SGOT) 20 U/L (15-37) Alanine Aminotransferase (ALT/SGPT) 8 U/L (14-59) Alkaline Phosphatase 86 U/L (46-116) Total Protein 5.0 g/dL (6.4-8.2) Albumin 1.3 g/dL (3.4-5.0) Albumin/Globulin Ratio 0.4 (1.0-1.7) Test 11/30/19 11:59 Glucose (Fingerstick) 126 mg/dL (70-99) Laboratory Tests Test 11/29/19 13:42 11/29/19 14:30 11/29/19 18:09 11/29/19 21:30 O2 Saturation 98 % (92-99) Arterial Blood pH 7.29 (7.35-7.45) Arterial Blood pCO2 at Patient Temp 35 mmHg (35-46) Arterial Blood pO2 at Patient Temp 105 mmHg (75-108) Arterial Blood HCO3 17 mmol/L (21-28) Arterial Blood Base Excess -9 mmol/L (-3-3) FiO2 4l n.c. White Blood Count 19.3 x10^3/uL (4.0-11.0) Red Blood Count 2.64 x10^6/uL (3.50-5.40) Hemoglobin 7.4 g/dL (12.0-15.5) Hematocrit 23.4 % (36.0-47.0) Mean Corpuscular Volume 89 fL (79-100) Mean Corpuscular Hemoglobin 28 pg (25-35) Mean Corpuscular Hemoglobin Concent 32 g/dL (31-37) Red Cell Distribution Width 20.0 % (11.5-14.5) Platelet Count 439 x10^3/uL (140-400) Neutrophils (%) (Auto) 93 % (31-73) Lymphocytes (%) (Auto) 2 % (24-48) Monocytes (%) (Auto) 4 % (0-9) Eosinophils (%) (Auto) 0 % (0-3) Basophils (%) (Auto) 0 % (0-3) Neutrophils # (Auto) 18.0 x10^3/uL (1.8-7.7) Lymphocytes # (Auto) 0.4 x10^3/uL (1.0-4.8) Monocytes # (Auto) 0.8 x10^3/uL (0.0-1.1) Eosinophils # (Auto) 0.0 x10^3/uL (0.0-0.7) Basophils # (Auto) 0.0 x10^3/uL (0.0-0.2) Sodium Level 154 mmol/L (136-145) Potassium Level 5.2 mmol/L (3.5-5.1) Chloride Level 117 mmol/L (98-107) Carbon Dioxide Level 29 mmol/L (21-32) Anion Gap 8 (6-14) Blood Urea Nitrogen 69 mg/dL (7-20) Creatinine 2.2 mg/dL (0.6-1.0) Estimated GFR (Cockcroft-Gault) 23.7 BUN/Creatinine Ratio 31 (6-20) Glucose Level 219 mg/dL (70-99) Lactic Acid Level 3.3 mmol/L (0.4-2.0) 2.8 mmol/L (0.4-2.0) Calcium Level 7.4 mg/dL (8.5-10.1) Total Bilirubin 0.3 mg/dL (0.2-1.0) Aspartate Amino Transf (AST/SGOT) 15 U/L (15-37) Alanine Aminotransferase (ALT/SGPT) 10 U/L (14-59) Alkaline Phosphatase 76 U/L (46-116) Total Protein 4.9 g/dL (6.4-8.2) Albumin 1.3 g/dL (3.4-5.0) Albumin/Globulin Ratio 0.4 (1.0-1.7) Glucose (Fingerstick) 194 mg/dL (70-99) Test 11/30/19 00:38 11/30/19 05:15 11/30/19 07:19 11/30/19 11:59 Glucose (Fingerstick) 167 mg/dL (70-99) 166 mg/dL (70-99) 126 mg/dL (70-99) White Blood Count 13.8 x10^3/uL (4.0-11.0) Red Blood Count 2.64 x10^6/uL (3.50-5.40) Hemoglobin 7.3 g/dL (12.0-15.5) Hematocrit 23.7 % (36.0-47.0) Mean Corpuscular Volume 90 fL (79-100) Mean Corpuscular Hemoglobin 28 pg (25-35) Mean Corpuscular Hemoglobin Concent 31 g/dL (31-37) Red Cell Distribution Width 19.6 % (11.5-14.5) Platelet Count 397 x10^3/uL (140-400) Neutrophils (%) (Auto) 87 % (31-73) Lymphocytes (%) (Auto) 7 % (24-48) Monocytes (%) (Auto) 5 % (0-9) Eosinophils (%) (Auto) 1 % (0-3) Basophils (%) (Auto) 0 % (0-3) Neutrophils # (Auto) 12.0 x10^3/uL (1.8-7.7) Lymphocytes # (Auto) 0.9 x10^3/uL (1.0-4.8) Monocytes # (Auto) 0.7 x10^3/uL (0.0-1.1) Eosinophils # (Auto) 0.2 x10^3/uL (0.0-0.7) Basophils # (Auto) 0.0 x10^3/uL (0.0-0.2) Sodium Level 152 mmol/L (136-145) Potassium Level 4.6 mmol/L (3.5-5.1) Chloride Level 117 mmol/L (98-107) Carbon Dioxide Level 26 mmol/L (21-32) Anion Gap 9 (6-14) Blood Urea Nitrogen 76 mg/dL (7-20) Creatinine 2.1 mg/dL (0.6-1.0) Estimated GFR (Cockcroft-Gault) 25.0 BUN/Creatinine Ratio 36 (6-20) Glucose Level 171 mg/dL (70-99) Calcium Level 7.4 mg/dL (8.5-10.1) Total Bilirubin 0.2 mg/dL (0.2-1.0) Aspartate Amino Transf (AST/SGOT) 20 U/L (15-37) Alanine Aminotransferase (ALT/SGPT) 8 U/L (14-59) Alkaline Phosphatase 86 U/L (46-116) Total Protein 5.0 g/dL (6.4-8.2) Albumin 1.3 g/dL (3.4-5.0) Albumin/Globulin Ratio 0.4 (1.0-1.7) Problem List Problems Medical Problems: (1) Acute pancreatitis Status: Acute (2) Cholelithiasis Status: Acute Assessment/Plan Hemodynamically stable no acute changes Continue current supportive care Justicifation of Admission Dx: Justifications for Admission: Justification of Admission Dx: Yes CARIN MALDONADO MD Nov 30, 2019 13:17
[2019-11-30 15:10] VITALS: BP 104/61
--- NOTE | 2019-11-30 15:36 | NUR ---
Wound/Ostomy Care/ assessment: Follow up visit for multiple surgical incisional wounds and drain removal sites. Drain sites to L lateral abdomen healed, covered with hydrocolloid dressings for protection. Midline incision well approximated, healed, and left [employer]. 3 drain removal sites to R lateral abdomen remain open. Inferior and superior openings are not draining, light pink epithelial tisse and minimal soft yellow slough. Covered with Aqacel AG and foams. central opening continues to drain copious amounts of clear brown-green bile. Ostomy ring to central periwound, urostomy bag connected to louis drainage collection bag,and hydrocolloids. Treatment Recommendations/Plan: Continue to change urostomy as needed for seal management. Education provided: Assisted with turn to L side with pillows and purple wedge. Offloading surface/device: P500 Follow up 12/05
--- NOTE | 2019-11-30 15:42 | NUR ---
Entered room to assess patient after wound care completed drain change on right sight. Noticed output from G tube appears to be the color and consistency of tube feeding that patient is receiving. Pgd and spoke to surgeon regarding G tube output. Was advised to attempt to pull g tube until resistance is met then secure the stopper to be sure its flush against patients skin. When this RN and nurse in training attempted to perform task, it was noted that stopper/stat lock is sutured to patients skin therefore we were unable to reposition tube. Will continue to monitor
[2019-11-30 19:55] VITALS: BP 104/60
[2019-11-30 23:50] VITALS: BP 94/49
[2019-12-01] VITALS (10 sets, daily range): BP systolic 97–135; BP diastolic 35–73
[2019-12-01] MEDS: IPRATRPIUM/ALBUTEROL 0.5/2.5MG 3 ML NEBU. NEB SCH ×6 (00:18→19:55)
[2019-12-01] MEDS: IV RINGERS,LACTATED 1000ML 1,000 ML IV SCH ×4 (00:46→16:02)
[2019-12-01] MEDS: ALPRAZolam 0.5 MG TABLET PO PRN (03:25)
[2019-12-01] MEDS: HYDROcodone/APAP 5/325MG 1 TAB TABLET PO PRN ×2 (03:26→12:25)
[2019-12-01 05:20] LABS: HEMATOCRIT 23.4 % (36.0-47.0); RED BLOOD COUNT 2.58 x10^6/uL (3.50-5.40); RED CELL DISTRIBUTION WIDTH 20.5 % (11.5-14.5); WHITE BLOOD COUNT 12.2 x10^3/uL (4.0-11.0)
--- NOTE | 2019-12-01 05:21 | NUR ---
Cleaned inner canula to trach using sterile technique. Cleared thick yellow mucous from inner canula and placed back into trach. Patient tolerated well.
[2019-12-01 05:31] LABS: GFR 26.5; POTASSIUM 4.1 mmol/L (3.5-5.1)
--- NOTE | 2019-12-01 05:55 | NUR ---
Reported Hgb 7.0, HCT 23[address] Bravo this morning. No orders at this time and will reevaluate Hgb and HCT later this morning.
[2019-12-01] MEDS: INSULIN LISPRO 300 UNITS/3 ML VIAL. SQ SCH ×4 (06:00→18:00)
[2019-12-01] MEDS: ACETYLCYSTEINE 20% for RESP TX 600 MG/3 ML. NEB SCH ×2 (08:00→19:55)
[2019-12-01] MEDS: ENOXAPARIN 40 MG/0.4 ML SYRINGE. SQ SCH (08:00)
--- NOTE | 2019-12-01 08:10 | PDOC ---
Infectious Disease Note Subjective: Subjective Pt lethargic, arousable afebrile last 48 hours Continues to have liquid stool Vital Signs: Vital Signs Vital Signs Date Time Temp Pulse Resp B/P (MAP) Pulse Ox O2 Delivery O2 Flow Rate FiO2 12/01/19 08:08 100 Nasal Cannula 1.5 12/01/19 07:00 97.8 64 24 115/67 (83) 97.8 Physical Exam: PHYSICAL EXAM GENERAL: Resting in bed, NAD HEENT: Pupils equal, oral cavity dry. OC/Op - Dry NECK: Tracheostomy capped LUNGS: Diminished aeration bases, HEART: S1, S2, ABDOMEN: Less distended, mild- bowel sounds hypoactive, soft, GJ drain present, drainage bag in place with depedent drainage : Lind in place EXTREMITIES: Trace generalized edema, no cyanosis. Yeast in groin area SKIN: warm touch. No signs of rash. NEURO: - Alert and responsive RUE PICC site without signs of complications. PIV s clean EC fistula Medications: Inpatient Meds: Current Medications Medications (Trade) Dose Ordered Sig/Yvon Start Time Stop Time Status Last Admin Dose Admin Acetaminophen (Tylenol Supp) 650 mg PRN Q6HRS PRN 07/12/19 10:30 11/28/19 15:43 650 MG Acetaminophen (Tylenol) 650 mg PRN Q6HRS PRN 07/09/19 03:36 08/31/19 10:25 DC 08/04/19 19:56 650 MG Acetaminophen/ Hydrocodone Bitart (Lortab 5/325) 1 tab PRN Q4HRS PRN 11/10/19 16:00 12/01/19 03:26 1 TAB Acetylcysteine (Mucomyst 20% Resp Treatment) 600 mg RTBID 10/15/19 12:00 12/01/19 08:00 600 MG Albumin Human 500 ml @ 125 mls/hr PRN Q1HR PRN 10/18/19 15:45 11/21/19 09:52 DC Albuterol Sulfate (Ventolin Neb Soln) 2.5 mg 1X ONCE 07/05/19 22:30 07/05/19 22:31 DC 07/06/19 00:56 2.5 MG Albuterol/ Ipratropium (Duoneb) 3 ml Q4HRS 10/01/19 08:00 12/01/19 08:03 3 ML Alprazolam (Xanax) 0.5 mg PRN QID PRN 11/10/19 16:00 12/01/19 03:25 0.5 MG Alteplase, Recombinant (Cathflo For Central Catheter Clearance) 1 mg 1X ONCE 11/23/19 07:00 11/23/19 07:01 DC 11/23/19 09:30 1 MG Alteplase, Recombinant 4 mg/ Sodium Chloride 20 ml @ 20 mls/hr 1X ONCE 10/05/19 10:00 10/05/19 10:59 DC 10/05/19 10:09 20 MLS/HR Alteplase, Recombinant 5 mg/ Sodium Chloride 30 ml @ 30 mls/hr 1X PRN 11/23/19 06:45 UNV Amino Acids/ Glycerin/ Electrolytes 1,000 ml @ 80 mls/hr [id number] 11/13/19 10:15 11/20/19 07:07 DC 11/19/19 18:10 80 MLS/HR Artificial Tears (Artificial Tears) 1 drop PRN Q15MIN PRN 08/17/19 05:30 10/11/19 21:17 1 DROP Atenolol (Tenormin) 100 mg DAILY 07/05/19 09:00 07/04/19 20:08 DC Atropine Sulfate (ATROPINE 0.5mg SYRINGE) 0.5 mg PRN Q5MIN PRN 07/21/19 08:15 11/21/19 09:45 DC Barium Sulfate (Varibar Thin Liquid Apple) 148 gm 1X ONCE 09/13/19 11:45 09/13/19 11:49 DC Benzocaine (Hurricaine One) 1 spray 1X ONCE 07/08/19 14:30 07/08/19 14:31 DC 07/08/19 16:38 1 SPRAY Bisacodyl (Dulcolax Supp) 10 mg STK-MED ONCE 08/15/19 10:59 08/15/19 10:59 DC Bumetanide (Bumex) 2 mg DAILY 08/26/19 10:00 09/05/19 17:15 DC 09/05/19 08:07 2 MG Bupivacaine HCl/ Epinephrine Bitart (Sensorcain-Epi 0.5%-1:[id number] Mpf) 30 ml STK-MED ONCE 10/18/19 08:34 10/18/19 08:35 DC Calcitonin [place] (Miacalcin) 400 unit BID 11/24/19 18:00 11/25/19 15:56 DC 11/24/19 18:18 400 UNIT Calcium Carbonate/ Glycine (Tums) 500 mg PRN [id number] PRN 07/06/19 17:45 08/31/19 10:25 DC Calcium Chloride 1000 mg/Sodium Chloride 110 ml @ 220 mls/hr 1X ONCE 07/05/19 22:30 07/05/19 22:59 DC 07/05/19 22:11 220 MLS/HR Calcium Chloride 3000 mg/Sodium Chloride 1,030 ml @ 50 mls/hr [id number] 07/07/19 08:00 07/09/19 15:23 DC 07/09/19 02:17 50 MLS/HR Calcium Gluconate (Calcium Gluconate) 2,000 mg 1X ONCE 07/07/19 02:15 07/07/19 02:16 DC 07/07/19 02:19 2,000 MG Calcium Gluconate 1000 mg/Sodium Chloride 110 ml @ 220 mls/hr 1X ONCE 07/06/19 03:30 07/06/19 03:59 DC 07/06/19 03:21 220 MLS/HR Calcium Gluconate 2000 mg/Sodium Chloride 120 ml @ 220 mls/hr 1X ONCE 07/06/19 07:30 07/06/19 08:02 DC 07/06/19 09:05 220 MLS/HR Cefepime HCl (Maxipime) 2 gm Q12HR 11/28/19 10:00 11/30/19 20:49 2 GM Ceftazidime/ Avibactam 2.5 gm/ Sodium Chloride 250 ml @ 125 mls/hr Q8HRS 11/10/19 08:00 11/23/19 08:20 DC 11/23/19 05:38 125 MLS/HR Cellulose (Surgicel Fibrillar 1x2) 1 each STK-MED ONCE 07/25/19 11:00 07/25/19 11:01 DC Cellulose (Surgicel Hemostat 2x14) 1 each STK-MED ONCE 08/15/19 10:58 08/15/19 10:59 DC Cellulose (Surgicel Hemostat 4x8) 1 each STK-MED ONCE 08/15/19 10:58 08/15/19 10:59 DC Chlorhexidine Gluconate (Peridex) 15 ml BID 10/01/19 09:00 10/01/19 07:58 DC Ciprofloxacin/ Dextrose 200 ml @ 200 mls/hr Q12HR 10/30/19 10:00 11/08/19 08:20 DC 11/07/19 21:02 200 MLS/HR Cyclobenzaprine HCl (Flexeril) 10 mg PRN Q6HRS PRN 08/18/19 10:45 11/26/19 20:50 10 MG Daptomycin 410 mg/ Sodium Chloride 50 ml @ 100 mls/hr Q24H 09/25/19 14:00 09/28/19 08:30 DC 09/27/19 13:33 100 MLS/HR Daptomycin 430 mg/ Sodium Chloride 50 ml @ 100 mls/hr Q24H 08/13/19 13:00 08/18/19 20:58 DC 08/18/19 13:00 100 MLS/HR Daptomycin 450 mg/ Sodium Chloride 50 ml @ 100 mls/hr Q24H 09/04/19 09:00 09/08/19 08:30 DC 09/07/19 09:25 100 MLS/HR Daptomycin 485 mg/ Sodium Chloride 50 ml @ 100 mls/hr Q24H 08/22/19 11:00 08/30/19 07:44 DC 08/29/19 13:10 100 MLS/HR Daptomycin 500 mg/ Sodium Chloride 50 ml @ 100 mls/hr Q24H 11/13/19 09:00 11/23/19 08:20 DC 11/22/19 09:20 100 MLS/HR Desflurane (Suprane) 90 ml STK-MED ONCE 10/18/19 10:18 10/18/19 10:19 DC Dexamethasone Sodium Phosphate (Decadron) 4 mg STK-MED ONCE 08/15/19 10:56 08/15/19 10:57 DC Dexmedetomidine HCl 400 mcg/ Sodium Chloride 100 ml @ 0 mls/hr CONT PRN 07/21/19 08:15 09/17/19 18:31 DC 09/17/19 12:57 8 MLS/HR Dextrose (Dextrose 50%-Water Syringe) 12.5 gm PRN Q15MIN PRN 07/04/19 09:30 Digoxin (Lanoxin) 125 mcg 1X ONCE 07/07/19 18:00 07/07/19 18:01 DC 07/07/19 17:10 125 MCG Diphenhydramine HCl (Benadryl) 25 mg 1X ONCE 11/03/19 19:00 11/03/19 19:01 DC 11/03/19 18:56 25 MG Duloxetine HCl (Cymbalta) 30 mg DAILY 08/28/19 14:00 08/31/19 10:25 DC 08/29/19 09:48 30 MG Enoxaparin Sodium (Lovenox 100mg Syringe) 100 mg Q12HR 08/09/19 21:00 UNV Enoxaparin Sodium (Lovenox 40mg Syringe) 40 mg Q24H 10/19/19 08:00 11/30/19 08:28 40 MG Ephedrine Sulfate (ePHEDrine PF IN SALINE SYRINGE) 50 mg STK-MED ONCE 10/18/19 14:45 10/18/19 14:45 DC Etomidate (Amidate) 8 mg 1X ONCE 07/11/19 08:30 07/11/19 08:31 DC 07/11/19 08:33 8 MG Fentanyl (Duragesic 12mcg/ Hr Patch) 1 patch Q3DAYS 10/28/19 09:00 11/30/19 08:28 1 PATCH Fentanyl (Duragesic 50mcg/ Hr Patch) 1 patch Q72H 09/22/19 21:00 10/01/19 12:00 DC 09/22/19 21:22 1 PATCH Fentanyl Citrate (Fentanyl 2ml Vial) 100 mcg STK-MED ONCE 11/22/19 15:03 11/22/19 15:03 DC Fentanyl Citrate (Fentanyl 5ml Vial) 250 mcg 1X ONCE 08/26/19 09:15 08/26/19 09:16 DC 08/26/19 09:30 50 MCG Flumazenil (Romazicon) 0.5 mg STK-MED ONCE 09/25/19 14:48 09/25/19 14:48 DC Fluoxetine HCl (PROzac) 20 mg QHS 09/22/19 21:00 11/30/19 20:48 20 MG Furosemide (Lasix) 40 mg [id number] 11/24/19 09:00 11/24/19 14:01 DC 11/24/19 13:51 40 MG Haloperidol Lactate (Haldol Inj) 3 mg 1X ONCE 08/22/19 14:30 08/22/19 14:31 DC 08/22/19 14:37 3 MG Heparin Sodium (Porcine) (Hep Lock Adult) 500 unit STK-MED ONCE 07/26/19 09:29 07/26/19 09:30 DC Heparin Sodium (Porcine) (Heparin Sodium) 5,000 unit Q12HR 08/15/19 21:00 08/25/19 09:59 DC 08/24/19 20:57 5,000 UNIT Heparin Sodium (Porcine) 1000 unit/Sodium Chloride 1,001 ml @ 1,001 mls/hr 1X ONCE 10/18/19 06:00 10/18/19 06:59 DC Hydromorphone HCl (Dilaudid Standard PSYCHIATRIC AIDE) 12 mg STK-MED ONCE 08/19/19 15:50 08/30/19 11:24 DC Hydromorphone HCl (Dilaudid) 1 mg PRN Q4HRS PRN 08/22/19 19:00 09/05/19 17:10 DC 09/05/19 06:25 1 MG Info (CONTRAST GIVEN -- Rx MONITORING) 1 each PRN DAILY PRN 11/08/19 11:45 11/10/19 11:44 DC Info (Icu Electrolyte Protocol) 1 ea CONT PRN PRN 07/17/19 13:15 Info (PHARMACY MONITORING -- do not chart) 1 each PRN DAILY PRN 08/12/19 15:45 09/13/19 14:14 DC Info (Tpn Per Pharmacy) 1 each PRN DAILY PRN 07/06/19 12:30 UNV Insulin Human Lispro (HumaLOG) 0-9 UNITS Q6HRS 07/04/19 09:30 11/28/19 19:01 3 UNITS Insulin Human Regular (HumuLIN R VIAL) 5 unit 1X ONCE 07/05/19 22:30 07/05/19 22:31 DC 07/05/19 22:14 5 UNIT Iohexol (Omnipaque 240 Mg/ml) 10 ml 1X ONCE 11/22/19 15:45 11/22/19 15:46 DC 11/22/19 15:00 10 ML Iohexol (Omnipaque 300 Mg/ml) 50 ml 1X ONCE 11/15/19 11:00 11/15/19 11:01 DC Iohexol (Omnipaque 350 Mg/ml) 90 ml 1X ONCE 07/04/19 03:30 07/04/19 03:31 DC 07/04/19 03:25 90 ML Ketorolac Tromethamine (Toradol 30mg Vial) 30 mg 1X ONCE 07/04/19 03:00 07/04/19 03:01 DC 07/04/19 02:54 30 MG Lidocaine HCl (Buffered Lidocaine 1%) 5 ml 1X ONCE 11/22/19 15:45 11/22/19 15:46 DC 11/22/19 15:00 5 ML Lidocaine HCl (Glydo (Lidocaine) Jelly) 1 ramu 1X ONCE 07/08/19 14:30 07/08/19 14:31 DC 07/08/19 16:38 1 RAMU Lidocaine HCl (Lidocaine 1% 20ml Vial) 20 ml 1X ONCE 09/25/19 15:00 09/25/19 15:01 DC 09/25/19 15:30 20 ML Lidocaine HCl (Lidocaine Pf 2% Vial) 5 ml STK-MED ONCE 10/18/19 07:44 10/18/19 07:44 DC Lidocaine HCl (Xylocaine-Mpf 1% 2ml Vial) 2 ml PRN 1X PRN 08/15/19 07:00 08/16/19 06:59 DC Linezolid/Dextrose 300 ml @ 300 mls/hr Q12HR 09/04/19 09:00 09/07/19 08:11 DC 09/06/19 21:08 300 MLS/HR Lorazepam (Ativan Inj) 0.25 mg PRN Q4HRS PRN 09/21/19 07:30 11/30/19 09:50 0.25 MG Magnesium Sulfate 50 ml @ 25 mls/hr 1X ONCE 10/18/19 16:30 10/18/19 18:29 DC 10/18/19 17:02 25 MLS/HR Meropenem 1 gm/ Sodium Chloride 100 ml @ 200 mls/hr Q12HR 09/25/19 21:00 10/13/19 08:56 DC 10/13/19 08:27 200 MLS/HR Meropenem 500 mg/ Sodium Chloride 50 ml @ 100 mls/hr Q6HRS 10/16/19 18:00 11/08/19 08:23 DC 11/08/19 06:15 100 MLS/HR Methylprednisolone Sodium Succinate (SOLU-Medrol 125MG VIAL) 125 mg 1X ONCE 10/01/19 06:15 10/01/19 06:16 DC 10/01/19 06:26 125 MG Metoclopramide HCl (Reglan Vial) 10 mg PRN Q3HRS PRN 08/27/19 16:45 09/01/19 04:25 10 MG Metoprolol Tartrate (Lopressor Vial) 5 mg 1X ONCE 11/27/19 10:45 11/27/19 10:46 DC 11/27/19 10:54 5 MG Metronidazole 100 ml @ 100 mls/hr Q12HR 11/28/19 10:00 11/30/19 20:48 100 MLS/HR Micafungin Sodium 100 mg/Dextrose 100 ml @ 100 mls/hr Q24H 10/18/19 08:30 11/23/19 08:20 DC 11/22/19 09:30 100 MLS/HR Midazolam HCl (Versed) 2 mg 1X ONCE 09/25/19 15:00 09/25/19 15:01 DC 09/25/19 15:28 1 MG Midazolam HCl 100 mg/Sodium Chloride 100 ml @ 1 mls/hr CONT PRN 10/18/19 14:45 11/21/19 09:45 DC 10/21/19 18:48 10 MLS/HR Midazolam HCl 50 mg/Sodium Chloride 50 ml @ 0 mls/hr CONT PRN 07/11/19 08:15 07/16/19 15:59 DC 07/14/19 22:39 7 MLS/HR Morphine Sulfate (Morphine Sulfate) 1 mg PRN Q1HR PRN 10/18/19 14:45 11/21/19 09:45 DC 11/12/19 18:28 1 MG Multi-Ingred Cream/Lotion/Oil/ Oint (Artificial Tears Eye Ointment) 1 ramu PRN Q1HR PRN 07/13/19 17:30 09/21/19 14:39 DC 08/01/19 08:19 1 RAMU Multivitamins/ Minerals Therapeutic (Centrum Multivit-Mineral Liq) 5 ml DAILY 11/23/19 09:00 11/30/19 08:28 5 ML Naloxone HCl (Narcan) 0.4 mg PRN Q2MIN PRN 10/18/19 14:45 11/21/19 09:45 DC Norepinephrine Bitartrate 8 mg/ Dextrose 258 ml @ 13.332 mls/ hr CONT PRN 09/25/19 06:30 11/21/19 09:45 DC 10/20/19 09:09 1.6 MLS/HR Ondansetron HCl (Zofran) 4 mg STK-MED ONCE 10/18/19 13:33 10/18/19 13:33 DC Pantoprazole Sodium (PROTONIX VIAL for IV PUSH) 40 mg DAILYAC 07/04/19 11:30 11/30/19 08:28 40 MG Phenylephrine HCl (Brayden-Synephrine Inj) 10 mg STK-MED ONCE 10/18/19 13:33 10/18/19 13:33 DC Phenylephrine HCl (PHENYLEPHRINE in 0.9% NACL PF) 1 mg STK-MED ONCE 10/18/19 14:44 10/18/19 14:45 DC Piperacillin Sod/ Tazobactam Sod 3.375 gm/Sodium Chloride 50 ml @ 100 mls/hr Q6HRS 09/14/19 12:00 09/22/19 07:26 DC 09/22/19 06:10 100 MLS/HR Piperacillin Sod/ Tazobactam Sod 4.5 gm/Sodium Chloride 100 ml @ 200 mls/hr 1X ONCE 07/04/19 06:00 07/04/19 06:29 DC 07/04/19 05:44 200 MLS/HR Potassium Chloride 110 meq/ Magnesium Sulfate 20 meq/ Multivitamins 10 ml/Chromium/ Copper/Manganese/ Seleni/Zn 1 ml/ Insulin Human Regular 15 unit/ Total Parenteral Nutrition/Amino Acids/Dextrose/ Fat Emulsion Intravenous 1,800 ml @ 75 mls/hr TPN CONT 09/11/19 22:00 09/12/19 21:59 DC 09/11/19 22:48 75 MLS/HR Potassium Chloride 15 meq/ Bicarbonate Dialysis Soln w/ out KCl 5,007.5 ml @ 1,000 mls/ hr Q5H1M 07/17/19 20:00 07/21/19 13:08 DC 07/20/19 18:14 1,000 MLS/HR Potassium Chloride 20 meq/ Bicarbonate Dialysis Soln w/ out KCl 5,010 ml @ 1,000 mls/hr Q5H1M 07/13/19 16:00 07/17/19 19:59 DC 07/17/19 14:54 1,000 MLS/HR Potassium Chloride 40 meq/ Potassium Acetate 60 meq/Magnesium Sulfate 10 meq/ Multivitamins 10 ml/Chromium/ Copper/Manganese/ Seleni/Zn 1 ml/ Insulin Human Regular 20 unit/ Total Parenteral Nutrition/Amino Acids/Dextrose/ Fat Emulsion Intravenous 1,800 ml @ 75 mls/hr TPN CONT 09/22/19 22:00 09/23/19 21:59 DC 09/23/19 00:03 75 MLS/HR Potassium Chloride 70 meq/ Magnesium Sulfate 20 meq/ Multivitamins 10 ml/Chromium/ Copper/Manganese/ Seleni/Zn 1 ml/ Insulin Human Regular 15 unit/ Total Parenteral Nutrition/Amino Acids/Dextrose/ Fat Emulsion Intravenous 1,800 ml @ 75 mls/hr TPN CONT 09/16/19 22:00 09/17/19 21:59 DC 09/16/19 23:13 75 MLS/HR Potassium Chloride 75 meq/ Magnesium Sulfate 15 meq/ Multivitamins 10 ml/Chromium/ Copper/Manganese/ Seleni/Zn 0.5 ml/ Insulin Human Regular 15 unit/ Total Parenteral Nutrition/Amino Acids/Dextrose/ Fat Emulsion Intravenous 1,920 ml @ 80 mls/hr TPN CONT 08/27/19 22:00 08/28/19 21:59 DC 08/27/19 22:41 80 MLS/HR Potassium Chloride 75 meq/ Magnesium Sulfate 15 meq/Calcium Gluconate 8 meq/ Multivitamins 10 ml/Chromium/ Copper/Manganese/ Seleni/Zn 0.5 ml/ Insulin Human Regular 15 unit/ Total Parenteral Nutrition/Amino Acids/Dextrose/ Fat Emulsion Intravenous 1,920 ml @ 80 mls/hr TPN CONT 08/25/19 22:00 08/26/19 21:59 DC 08/25/19 22:28 80 MLS/HR Potassium Chloride 75 meq/ Magnesium Sulfate 15 meq/Calcium Gluconate 8 meq/ Multivitamins 10 ml/Chromium/ Copper/Manganese/ Seleni/Zn 0.5 ml/ Insulin Human Regular 20 unit/ Total Parenteral Nutrition/Amino Acids/Dextrose/ Fat Emulsion Intravenous 1,920 ml @ 80 mls/hr TPN CONT 08/24/19 22:00 08/25/19 21:59 DC 08/24/19 22:00 80 MLS/HR Potassium Chloride 75 meq/ Magnesium Sulfate 15 meq/Calcium Gluconate 8 meq/ Multivitamins 10 ml/Chromium/ Copper/Manganese/ Seleni/Zn 0.5 ml/ Insulin Human Regular 25 unit/ Total Parenteral Nutrition/Amino Acids/Dextrose/ Fat Emulsion Intravenous 1,920 ml @ 80 mls/hr TPN CONT 08/22/19 22:00 08/23/19 21:59 DC 08/22/19 23:08 80 MLS/HR Potassium Chloride 75 meq/ Magnesium Sulfate 20 meq/Calcium Gluconate 10 meq/ Multivitamins 10 ml/Chromium/ Copper/Manganese/ Seleni/Zn 0.5 ml/ Insulin Human Regular 25 unit/ Total Parenteral Nutrition/Amino Acids/Dextrose/ Fat Emulsion Intravenous 1,920 ml @ 80 mls/hr TPN CONT 08/21/19 22:00 08/22/19 21:59 DC 08/21/19 22:04 80 MLS/HR Potassium Chloride 75 meq/ Magnesium Sulfate 20 meq/Calcium Gluconate 10 meq/ Multivitamins 10 ml/Chromium/ Copper/Manganese/ Seleni/Zn 0.5 ml/ Insulin Human Regular 30 unit/ Total Parenteral Nutrition/Amino Acids/Dextrose/ Fat Emulsion Intravenous 1,920 ml @ 80 mls/hr TPN CONT 08/20/19 22:00 08/21/19 22:00 DC 08/20/19 21:51 80 MLS/HR Potassium Chloride 80 meq/ Magnesium Sulfate 20 meq/ Multivitamins 10 ml/Chromium/ Copper/Manganese/ Seleni/Zn 0.5 ml/ Insulin Human Regular 15 unit/ Total Parenteral Nutrition/Amino Acids/Dextrose/ Fat Emulsion Intravenous 1,920 ml @ 80 mls/hr TPN CONT 08/30/19 22:00 08/31/19 21:59 DC 08/30/19 21:40 80 MLS/HR Potassium Chloride 80 meq/ Magnesium Sulfate 20 meq/ Multivitamins 10 ml/Chromium/ Copper/Manganese/ Seleni/Zn 1 ml/ Insulin Human Regular 15 unit/ Total Parenteral Nutrition/Amino Acids/Dextrose/ Fat Emulsion Intravenous 1,800 ml @ 75 mls/hr TPN CONT 09/18/19 22:00 09/19/19 21:59 DC 09/18/19 21:54 75 MLS/HR Potassium Chloride 90 meq/ Magnesium Sulfate 20 meq/ Multivitamins 10 ml/Chromium/ Copper/Manganese/ Seleni/Zn 1 ml/ Insulin Human Regular 15 unit/ Total Parenteral Nutrition/Amino Acids/Dextrose/ Fat Emulsion Intravenous 1,800 ml @ 75 mls/hr TPN CONT 09/07/19 22:00 09/08/19 21:59 DC 09/07/19 22:28 75 MLS/HR Potassium Chloride 90 meq/ Magnesium Sulfate 20 meq/ Multivitamins 10 ml/Chromium/ Copper/Manganese/ Seleni/Zn 1 ml/ Insulin Human Regular 20 unit/ Total Parenteral Nutrition/Amino Acids/Dextrose/ Fat Emulsion Intravenous 1,800 ml @ 75 mls/hr TPN CONT 09/21/19 22:00 09/22/19 21:59 DC 09/21/19 23:13 75 MLS/HR Potassium Chloride/Water 100 ml @ 100 mls/hr Q1H 10/05/19 08:00 10/05/19 09:59 DC 10/05/19 09:12 100 MLS/HR Potassium Phosphate 20 mmol/ Sodium Chloride 106.6667 ml @ 51.667 m... 1X ONCE 07/13/19 13:00 07/13/19 15:03 DC 07/13/19 12:51 51.667 MLS/HR Potassium Acetate 30 meq/Magnesium Sulfate 14 meq/ Multivitamins 10 ml/Chromium/ Copper/Manganese/ Seleni/Zn 1 ml/ Insulin Human Regular 15 unit/ Sodium Chloride 20 meq/Potassium Chloride 30 meq/ Total Parenteral Nutrition/Amino Acids/Dextrose/ Fat Emulsion Intravenous 1,920 ml @ 80 mls/hr TPN CONT 10/11/19 22:00 10/12/19 21:59 DC 10/11/19 21:46 80 MLS/HR Potassium Acetate 30 meq/Magnesium Sulfate 20 meq/ Calcium Gluconate 10 meq/ Multivitamins 10 ml/Chromium/ Copper/Manganese/ Seleni/Zn 0.5 ml/ Insulin Human Regular 30 unit/ Potassium Chloride 30 meq/ Total Parenteral Nutrition/Amino Acids/Dextrose/ Fat Emulsion Intravenous 1,920 ml @ 80 mls/hr TPN CONT 08/19/19 22:00 08/20/19 21:59 DC 08/19/19 22:34 80 MLS/HR Potassium Acetate 40 meq/Magnesium Sulfate 10 meq/ Multivitamins 10 ml/Chromium/ Copper/Manganese/ Seleni/Zn 1 ml/ Insulin Human Regular 20 unit/ Total Parenteral Nutrition/Amino Acids/Dextrose/ Fat Emulsion Intravenous 1,920 ml @ 80 mls/hr TPN CONT 10/04/19 22:00 10/05/19 21:59 DC 10/04/19 21:32 80 MLS/HR Potassium Acetate 40 meq/Magnesium Sulfate 5 meq/ Multivitamins 10 ml/Chromium/ Copper/Manganese/ Seleni/Zn 1 ml/ Insulin Human Regular 30 unit/ Total Parenteral Nutrition/Amino Acids/Dextrose/ Fat Emulsion Intravenous 1,920 ml @ 80 mls/hr TPN CONT 10/03/19 22:00 10/04/19 19:34 DC 10/03/19 21:54 80 MLS/HR Potassium Acetate 55 meq/Magnesium Sulfate 20 meq/ Calcium Gluconate 10 meq/ Multivitamins 10 ml/Chromium/ Copper/Manganese/ Seleni/Zn 0.5 ml/ Insulin Human Regular 30 unit/ Total Parenteral Nutrition/Amino Acids/Dextrose/ Fat Emulsion Intravenous 1,920 ml @ 80 mls/hr TPN CONT 08/18/19 22:00 08/19/19 21:59 DC 08/19/19 01:00 80 MLS/HR Potassium Acetate 55 meq/Magnesium Sulfate 20 meq/ Calcium Gluconate 10 meq/ Multivitamins 10 ml/Chromium/ Copper/Manganese/ Seleni/Zn 0.5 ml/ Insulin Human Regular 35 unit/ Total Parenteral Nutrition/Amino Acids/Dextrose/ Fat Emulsion Intravenous 1,920 ml @ 80 mls/hr TPN CONT 08/16/19 22:00 08/17/19 21:59 DC 08/16/19 22:02 80 MLS/HR Potassium Acetate 60 meq/Magnesium Sulfate 10 meq/ Multivitamins 10 ml/Chromium/ Copper/Manganese/ Seleni/Zn 1 ml/ Insulin Human Regular 20 unit/ Total Parenteral Nutrition/Amino Acids/Dextrose/ Fat Emulsion Intravenous 1,920 ml @ 80 mls/hr TPN CONT 10/05/19 22:00 10/06/19 21:59 DC 10/05/19 21:55 80 MLS/HR Potassium Acetate 60 meq/Magnesium Sulfate 14 meq/ Multivitamins 10 ml/Chromium/ Copper/Manganese/ Seleni/Zn 1 ml/ Insulin Human Regular 15 unit/ Sodium Chloride 20 meq/Total Parenteral Nutrition/Amino Acids/Dextrose/ Fat Emulsion Intravenous 1,920 ml @ 80 mls/hr TPN CONT 10/10/19 22:00 10/11/19 21:59 DC 10/10/19 21:54 80 MLS/HR Potassium Acetate 60 meq/Magnesium Sulfate 14 meq/ Multivitamins 10 ml/Chromium/ Copper/Manganese/ Seleni/Zn 1 ml/ Insulin Human Regular 15 unit/ Total Parenteral Nutrition/Amino Acids/Dextrose/ Fat Emulsion Intravenous 1,920 ml @ 80 mls/hr TPN CONT 10/09/19 22:00 10/10/19 21:59 DC 10/09/19 22:22 80 MLS/HR Potassium Acetate 60 meq/Magnesium Sulfate 14 meq/ Multivitamins 10 ml/Chromium/ Copper/Manganese/ Seleni/Zn 1 ml/ Insulin Human Regular 20 unit/ Total Parenteral Nutrition/Amino Acids/Dextrose/ Fat Emulsion Intravenous 1,920 ml @ 80 mls/hr TPN CONT 10/06/19 22:00 10/07/19 21:59 DC 10/06/19 22:26 80 MLS/HR Potassium Acetate 60 meq/Magnesium Sulfate 5 meq/ Multivitamins 10 ml/Chromium/ Copper/Manganese/ Seleni/Zn 1 ml/ Insulin Human Regular 30 unit/ Total Parenteral Nutrition/Amino Acids/Dextrose/ Fat Emulsion Intravenous 1,920 ml @ 80 mls/hr TPN CONT 09/24/19 22:00 09/25/19 21:59 DC 09/24/19 21:54 80 MLS/HR Potassium Acetate 65 meq/Magnesium Sulfate 20 meq/ Calcium Gluconate 10 meq/ Multivitamins 10 ml/Chromium/ Copper/Manganese/ Seleni/Zn 0.5 ml/ Insulin Human Regular 30 unit/ Total Parenteral Nutrition/Amino Acids/Dextrose/ Fat Emulsion Intravenous 1,920 ml @ 80 mls/hr TPN CONT 08/17/19 22:00 08/18/19 21:59 DC 08/17/19 22:22 80 MLS/HR Potassium Acetate 80 meq/Magnesium Sulfate 5 meq/ Multivitamins 10 ml/Chromium/ Copper/Manganese/ Seleni/Zn 1 ml/ Insulin Human Regular 20 unit/ Total Parenteral Nutrition/Amino Acids/Dextrose/ Fat Emulsion Intravenous 1,920 ml @ 80 mls/hr TPN CONT 09/23/19 22:00 09/24/19 21:59 DC 09/23/19 21:59 80 MLS/HR Prochlorperazine Edisylate (Compazine) 5 mg PACU PRN PRN 08/15/19 07:00 08/16/19 06:59 DC Propofol (Diprivan) 200 mg STK-MED ONCE 10/18/19 07:44 10/18/19 07:44 DC Ringer's Solution 1,000 ml @ 175 mls/hr [id number] 11/29/19 14:30 12/01/19 06:27 175 MLS/HR Rocuronium [place] (Zemuron) 100 mg STK-MED ONCE 10/18/19 07:44 10/18/19 07:44 DC Saliva Substitute (Biotene Moisturizing Mouth) 2 spray PRN Q15MIN PRN 09/08/19 11:00 Sevoflurane (Ultane) 60 ml STK-MED ONCE 08/15/19 12:26 08/15/19 12:27 DC Sodium Bicarbonate 150 meq/Dextrose 1,150 ml @ 75 mls/hr 1X ONCE 10/18/19 16:30 10/19/19 07:49 DC 10/18/19 20:02 75 MLS/HR Sodium Bicarbonate 50 meq/Sodium Chloride 1,050 ml @ 75 mls/hr Q14H 07/06/19 07:30 07/11/19 10:28 DC 07/10/19 21:10 75 MLS/HR Sodium Acetate 50 meq/Potassium Acetate 55 meq/ Magnesium Sulfate 20 meq/Calcium Gluconate 10 meq/ Multivitamins 10 ml/Chromium/ Copper/Manganese/ Seleni/Zn 0.5 ml/ Insulin Human Regular 35 unit/ Total Parenteral Nutrition/Amino Acids/Dextrose/ Fat Emulsion Intravenous 1,800 ml @ 75 mls/hr TPN CONT 08/13/19 22:00 08/14/19 21:59 DC 08/13/19 22:03 75 MLS/HR Sodium Bicarbonate (Sodium Bicarb Adult 8.4% Syr) 50 meq STK-MED ONCE 11/29/19 14:30 11/29/19 14:30 DC Sodium Chloride 1,000 ml @ 1,000 mls/hr 1X ONCE 11/30/19 17:15 11/30/19 18:14 DC 11/30/19 17:17 1,000 MLS/HR Sodium Chloride (Normal Saline Flush) 3 ml QSHIFT PRN 10/18/19 14:45 11/21/19 09:45 DC Sodium Chloride 80 meq/Potassium Chloride 30 meq/ Potassium Acetate 30 meq/Magnesium Sulfate 14 meq/ Multivitamins 10 ml/Chromium/ Copper/Manganese/ Seleni/Zn 1 ml/ Insulin Human Regular 15 unit/ Total Parenteral Nutrition/Amino Acids/Dextrose/ Fat Emulsion Intravenous 1,920 ml @ 80 mls/hr TPN CONT 10/19/19 22:00 10/20/19 21:59 DC 10/19/19 23:05 80 MLS/HR Sodium Chloride 90 meq/Calcium Gluconate 10 meq/ Multivitamins 10 ml/Chromium/ Copper/Manganese/ Seleni/Zn 0.5 ml/ Total Parenteral Nutrition/Amino Acids/Dextrose/ Fat Emulsion Intravenous 1,512 ml @ 63 mls/hr TPN CONT 07/06/19 22:00 07/07/19 21:59 DC 07/06/19 22:06 63 MLS/HR Sodium Chloride 90 meq/Calcium Gluconate 10 meq/ Multivitamins 10 ml/Chromium/ Copper/Manganese/ Seleni/Zn 1 ml/ Total Parenteral Nutrition/Amino Acids/Dextrose/ Fat Emulsion Intravenous 55.005 ml @ 2.292 mls/hr TPN CONT 07/06/19 22:00 07/06/19 12:33 DC Sodium Chloride 90 meq/Magnesium Sulfate 10 meq/ Calcium Gluconate 20 meq/ Multivitamins 10 ml/Chromium/ Copper/Manganese/ Seleni/Zn 0.5 ml/ Total Parenteral Nutrition/Amino Acids/Dextrose/ Fat Emulsion Intravenous 1,512 ml @ 63 mls/hr TPN CONT 07/07/19 22:00 07/08/19 21:59 DC 07/07/19 22:25 63 MLS/HR Sodium Chloride 90 meq/Magnesium Sulfate 12 meq/ Calcium Gluconate 15 meq/ Multivitamins 10 ml/Chromium/ Copper/Manganese/ Seleni/Zn 0.5 ml/ Insulin Human Regular 25 unit/ Total Parenteral Nutrition/Amino Acids/Dextrose/ Fat Emulsion Intravenous 1,400 ml @ 58.333 mls/ hr TPN CONT 07/27/19 22:00 07/28/19 21:59 DC 07/27/19 21:41 58.333 MLS/HR Sodium Chloride 90 meq/Potassium Chloride 15 meq/ Magnesium Sulfate 12 meq/Calcium Gluconate 15 meq/ Multivitamins 10 ml/Chromium/ Copper/Manganese/ Seleni/Zn 0.5 ml/ Insulin Human Regular 25 unit/ Total Parenteral Nutrition/Amino Acids/Dextrose/ Fat Emulsion Intravenous 1,400 ml @ 58.333 mls/ hr TPN CONT 07/26/19 22:00 07/27/19 21:59 DC 07/26/19 22:13 58.333 MLS/HR Sodium Chloride 90 meq/Potassium Chloride 15 meq/ Potassium Phosphate 10 mmol/ Magnesium Sulfate 8 meq/Calcium Gluconate 15 meq/ Multivitamins 10 ml/Chromium/ Copper/Manganese/ Seleni/Zn 0.5 ml/ Insulin Human Regular 25 unit/ Total Parenteral Nutrition/Amino Acids/Dextrose/ Fat Emulsion Intravenous 1,400 ml @ 58.333 mls/ hr TPN CONT 07/24/19 22:00 07/25/19 21:59 DC 07/24/19 21:20 58.333 MLS/HR Sodium Chloride 90 meq/Potassium Chloride 15 meq/ Potassium Phosphate 10 mmol/ Magnesium Sulfate 10 meq/Calcium Gluconate 20 meq/ Multivitamins 10 ml/Chromium/ Copper/Manganese/ Seleni/Zn 0.5 ml/ Total Parenteral Nutrition/Amino Acids/Dextrose/ Fat Emulsion Intravenous 1,400 ml @ 58.333 mls/ hr TPN CONT 07/11/19 22:00 07/12/19 21:59 DC 07/11/19 21:42 58.333 MLS/HR Sodium Chloride 90 meq/Potassium Chloride 15 meq/ Potassium Phosphate 10 mmol/ Magnesium Sulfate 12 meq/Calcium Gluconate 15 meq/ Multivitamins 10 ml/Chromium/ Copper/Manganese/ Seleni/Zn 0.5 ml/ Insulin Human Regular 25 unit/ Total Parenteral Nutrition/Amino Acids/Dextrose/ Fat Emulsion Intravenous 1,400 ml @ 58.333 mls/ hr TPN CONT 07/25/19 22:00 07/26/19 21:59 DC 07/25/19 22:24 58.333 MLS/HR Sodium Chloride 90 meq/Potassium Chloride 15 meq/ Potassium Phosphate 15 mmol/ Magnesium Sulfate 10 meq/Calcium Gluconate 15 meq/ Multivitamins 10 ml/Chromium/ Copper/Manganese/ Seleni/Zn 0.5 ml/ Total Parenteral Nutrition/Amino Acids/Dextrose/ Fat Emulsion Intravenous 1,400 ml @ 58.333 mls/ hr TPN CONT 07/12/19 22:00 07/13/19 21:59 DC 07/12/19 22:17 58.333 MLS/HR Sodium Chloride 90 meq/Potassium Chloride 15 meq/ Potassium Phosphate 15 mmol/ Magnesium Sulfate 10 meq/Calcium Gluconate 20 meq/ Multivitamins 10 ml/Chromium/ Copper/Manganese/ Seleni/Zn 0.5 ml/ Total Parenteral Nutrition/Amino Acids/Dextrose/ Fat Emulsion Intravenous 1,200 ml @ 50 mls/hr TPN CONT 07/10/19 22:00 07/10/19 14:17 DC Sodium Chloride 90 meq/Potassium Chloride 15 meq/ Potassium Phosphate 18 mmol/ Magnesium Sulfate 8 meq/Calcium Gluconate 15 meq/ Multivitamins 10 ml/Chromium/ Copper/Manganese/ Seleni/Zn 0.5 ml/ Insulin Human Regular 10 unit/ Total Parenteral Nutrition/Amino Acids/Dextrose/ Fat Emulsion Intravenous 1,400 ml @ 58.333 mls/ hr TPN CONT 07/15/19 22:00 07/16/19 21:59 DC 07/15/19 21:43 58.333 MLS/HR Sodium Chloride 90 meq/Potassium Chloride 15 meq/ Potassium Phosphate 18 mmol/ Magnesium Sulfate 8 meq/Calcium Gluconate 15 meq/ Multivitamins 10 ml/Chromium/ Copper/Manganese/ Seleni/Zn 0.5 ml/ Insulin Human Regular 15 unit/ Total Parenteral Nutrition/Amino Acids/Dextrose/ Fat Emulsion Intravenous 1,400 ml @ 58.333 mls/ hr TPN CONT 07/18/19 22:00 07/19/19 21:59 DC 07/18/19 21:47 58.333 MLS/HR Sodium Chloride 90 meq/Potassium Chloride 15 meq/ Potassium Phosphate 18 mmol/ Magnesium Sulfate 8 meq/Calcium Gluconate 15 meq/ Multivitamins 10 ml/Chromium/ Copper/Manganese/ Seleni/Zn 0.5 ml/ Insulin Human Regular 20 unit/ Total Parenteral Nutrition/Amino Acids/Dextrose/ Fat Emulsion Intravenous 1,400 ml @ 58.333 mls/ hr TPN CONT 07/21/19 22:00 07/22/19 21:59 DC 07/21/19 22:45 58.333 MLS/HR Sodium Chloride 90 meq/Potassium Chloride 15 meq/ Potassium Phosphate 18 mmol/ Magnesium Sulfate 8 meq/Calcium Gluconate 15 meq/ Multivitamins 10 ml/Chromium/ Copper/Manganese/ Seleni/Zn 0.5 ml/ Total Parenteral Nutrition/Amino Acids/Dextrose/ Fat Emulsion Intravenous 1,400 ml @ 58.333 mls/ hr TPN CONT 07/14/19 22:00 07/15/19 21:59 DC 07/14/19 22:00 58.333 MLS/HR Sodium Chloride 90 meq/Potassium Chloride 30 meq/ Potassium Acetate 30 meq/Magnesium Sulfate 15 meq/ Multivitamins 10 ml/Chromium/ Copper/Manganese/ Seleni/Zn 1 ml/ Insulin Human Regular 15 unit/ Total Parenteral Nutrition/Amino Acids/Dextrose/ Fat Emulsion Intravenous 1,680 ml @ 70 mls/hr TPN CONT 11/03/19 22:00 11/04/19 21:59 DC 11/03/19 22:06 70 MLS/HR Sodium Chloride 90 meq/Potassium Phosphate 15 mmol/ Magnesium Sulfate 12 meq/Calcium Gluconate 15 meq/ Multivitamins 10 ml/Chromium/ Copper/Manganese/ Seleni/Zn 0.5 ml/ Insulin Human Regular 30 unit/ Total Parenteral Nutrition/Amino Acids/Dextrose/ Fat Emulsion Intravenous 1,400 ml @ 58.333 mls/ hr TPN CONT 07/29/19 22:00 07/30/19 21:59 DC 07/29/19 21:49 58.333 MLS/HR Sodium Chloride 90 meq/Potassium Phosphate 15 mmol/ Magnesium Sulfate 12 meq/Calcium Gluconate 15 meq/ Multivitamins 10 ml/Chromium/ Copper/Manganese/ Seleni/Zn 0.5 ml/ Insulin Human Regular 40 unit/ Total Parenteral Nutrition/Amino Acids/Dextrose/ Fat Emulsion Intravenous 1,400 ml @ 58.333 mls/ hr TPN CONT 07/30/19 22:00 07/31/19 21:59 DC 07/30/19 21:21 58.333 MLS/HR Sodium Chloride 90 meq/Potassium Phosphate 19 mmol/ Magnesium Sulfate 12 meq/Calcium Gluconate 15 meq/ Multivitamins 10 ml/Chromium/ Copper/Manganese/ Seleni/Zn 0.5 ml/ Insulin Human Regular 40 unit/ Total Parenteral Nutrition/Amino Acids/Dextrose/ Fat Emulsion Intravenous 1,400 ml @ 58.333 mls/ hr TPN CONT 07/31/19 22:00 08/01/19 21:59 DC 07/31/19 21:54 58.333 MLS/HR Sodium Chloride 90 meq/Potassium Phosphate 5 mmol/ Magnesium Sulfate 12 meq/Calcium Gluconate 15 meq/ Multivitamins 10 ml/Chromium/ Copper/Manganese/ Seleni/Zn 0.5 ml/ Insulin Human Regular 30 unit/ Total Parenteral Nutrition/Amino Acids/Dextrose/ Fat Emulsion Intravenous 1,400 ml @ 58.333 mls/ hr TPN CONT 07/28/19 22:00 07/29/19 21:59 DC 07/28/19 22:08 58.333 MLS/HR Sodium Chloride 100 meq/Potassium Chloride 30 meq/ Potassium Acetate 30 meq/Magnesium Sulfate 12 meq/ Multivitamins 10 ml/Chromium/ Copper/Manganese/ Seleni/Zn 1 ml/ Insulin Human Regular 15 unit/ Total Parenteral Nutrition/Amino Acids/Dextrose/ Fat Emulsion Intravenous 1,680 ml @ 70 mls/hr TPN CONT 10/23/19 22:00 10/24/19 21:59 DC 10/23/19 21:23 70 MLS/HR Sodium Chloride 100 meq/Potassium Chloride 40 meq/ Magnesium Sulfate 15 meq/Calcium Gluconate 15 meq/ Multivitamins 10 ml/Chromium/ Copper/Manganese/ Seleni/Zn 0.5 ml/ Insulin Human Regular 35 unit/ Total Parenteral Nutrition/Amino Acids/Dextrose/ Fat Emulsion Intravenous 1,400 ml @ 58.333 mls/ hr TPN CONT 08/07/19 22:00 08/08/19 21:59 DC 08/07/19 22:46 58.333 MLS/HR Sodium Chloride 100 meq/Potassium Chloride 40 meq/ Magnesium Sulfate 20 meq/Calcium Gluconate 10 meq/ Multivitamins 10 ml/Chromium/ Copper/Manganese/ Seleni/Zn 0.5 ml/ Insulin Human Regular 35 unit/ Total Parenteral Nutrition/Amino Acids/Dextrose/ Fat Emulsion Intravenous 1,400 ml @ 58.333 mls/ hr TPN CONT 08/11/19 22:00 08/12/19 21:59 DC 08/12/19 00:06 58.333 MLS/HR Sodium Chloride 100 meq/Potassium Chloride 40 meq/ Magnesium Sulfate 20 meq/Calcium Gluconate 15 meq/ Multivitamins 10 ml/Chromium/ Copper/Manganese/ Seleni/Zn 0.5 ml/ Insulin Human Regular 35 unit/ Total Parenteral Nutrition/Amino Acids/Dextrose/ Fat Emulsion Intravenous 1,400 ml @ 58.333 mls/ hr TPN CONT 08/10/19 22:00 08/11/19 21:59 DC 08/10/19 22:27 58.333 MLS/HR Sodium Chloride 100 meq/Potassium Phosphate 10 mmol/ Magnesium Sulfate 12 meq/Calcium Gluconate 15 meq/ Multivitamins 10 ml/Chromium/ Copper/Manganese/ Seleni/Zn 0.5 ml/ Insulin Human Regular 35 unit/ Potassium Chloride 20 meq/ Total Parenteral Nutrition/Amino Acids/Dextrose/ Fat Emulsion Intravenous 1,400 ml @ 58.333 mls/ hr TPN CONT 08/04/19 22:00 08/05/19 21:59 DC 08/04/19 22:10 58.333 MLS/HR Sodium Chloride 100 meq/Potassium Phosphate 19 mmol/ Magnesium Sulfate 12 meq/Calcium Gluconate 15 meq/ Multivitamins 10 ml/Chromium/ Copper/Manganese/ Seleni/Zn 0.5 ml/ Insulin Human Regular 40 unit/ Potassium Chloride 20 meq/ Total Parenteral Nutrition/Amino Acids/Dextrose/ Fat Emulsion Intravenous 1,400 ml @ 58.333 mls/ hr TPN CONT 08/03/19 22:00 08/04/19 21:59 DC 08/03/19 21:20 58.333 MLS/HR Sodium Chloride 100 meq/Potassium Phosphate 5 mmol/ Magnesium Sulfate 12 meq/Calcium Gluconate 15 meq/ Multivitamins 10 ml/Chromium/ Copper/Manganese/ Seleni/Zn 0.5 ml/ Insulin Human Regular 35 unit/ Potassium Chloride 20 meq/ Total Parenteral Nutrition/Amino Acids/Dextrose/ Fat Emulsion Intravenous 1,400 ml @ 58.333 mls/ hr TPN CONT 08/05/19 22:00 08/06/19 21:59 DC 08/05/19 22:59 58.333 MLS/HR Sodium Chloride 110 meq/Potassium Chloride 30 meq/ Potassium Acetate 30 meq/Magnesium Sulfate 15 meq/ Multivitamins 10 ml/Chromium/ Copper/Manganese/ Seleni/Zn 1 ml/ Insulin Human Regular 15 unit/ Total Parenteral Nutrition/Amino Acids/Dextrose/ Fat Emulsion Intravenous 1,680 ml @ 70 mls/hr TPN CONT 11/05/19 22:00 11/06/19 21:59 DC 11/05/19 22:01 70 MLS/HR Sodium Chloride 110 meq/Sodium Phosphate 10 mmol/ Potassium Chloride 30 meq/ Potassium Acetate 30 meq/Magnesium Sulfate 15 meq/ Multivitamins 10 ml/Chromium/ Copper/Manganese/ Seleni/Zn 1 ml/ Insulin Human Regular 15 unit/ Total Parenteral Nutrition/Amino Acids/Dextrose/ Fat Emulsion Intravenous 1,680 ml @ 70 mls/hr TPN CONT 11/06/19 22:00 11/07/19 21:59 DC 11/06/19 22:03 70 MLS/HR Sodium Chloride 120 meq/Sodium Phosphate 10 mmol/ Potassium Chloride 30 meq/ Potassium Acetate 30 meq/Magnesium Sulfate 15 meq/ Multivitamins 10 ml/Chromium/ Copper/Manganese/ Seleni/Zn 1 ml/ Insulin Human Regular 15 unit/ Total Parenteral Nutrition/Amino Acids/Dextrose/ Fat Emulsion Intravenous 1,680 ml @ 70 mls/hr TPN CONT 11/13/19 22:00 11/14/19 21:59 Cancel Succinylcholine Chloride (Anectine) 120 mg 1X ONCE 07/11/19 08:30 07/11/19 08:31 DC 07/11/19 08:34 120 MG Vancomycin HCl (Vanco Per Pharmacy) 1 each PRN DAILY PRN 10/30/19 09:15 11/02/19 07:41 DC 11/01/19 02:46 1 EACH Vancomycin HCl (Vancomycin Random Level) 1 each 1X ONCE 11/01/19 01:00 11/01/19 01:01 DC 11/01/19 01:00 1 EACH Vancomycin HCl (Vancomycin Trough Level) 1 each 1X ONCE 11/02/19 09:30 11/02/19 09:31 Cancel Vancomycin HCl 1.5 gm/Sodium Chloride 500 ml @ 250 mls/hr Q12H 11/01/19 10:00 11/02/19 07:41 DC 11/01/19 22:07 250 MLS/HR Vancomycin HCl 2 gm/Sodium Chloride 500 ml @ 250 mls/hr 1X ONCE 10/30/19 10:00 10/30/19 11:59 DC 10/30/19 10:34 250 MLS/HR Vasopressin (Vasostrict) 20 unit STK-MED ONCE 10/18/19 12:23 10/18/19 12:23 DC Vasopressin 20 unit/Dextrose 101 ml @ 12 mls/hr CONT PRN 10/18/19 15:30 11/21/19 09:45 DC 10/25/19 04:17 12 MLS/HR Vecuronium [place] (Norcuron Bolus) 6 mg PRN Q6HRS PRN 08/25/19 19:15 5/7/20 19:35 DC Vitamin A/Vitamin D (Vitamin A & D Ointment) 1 ramu PRN Q1HR PRN 11/22/19 09:15 11/29/19 10:44 1 RAMU Zoledronic Acid 100 ml @ 400 mls/hr 1X ONCE 11/25/19 12:00 11/25/19 12:14 DC 11/25/19 13:04 400 MLS/HR Labs: Lab Laboratory Tests Test 11/30/19 11:59 11/30/19 17:40 12/01/19 00:26 12/01/19 04:30 Glucose (Fingerstick) 126 mg/dL (70-99) 156 mg/dL (70-99) 157 mg/dL (70-99) White Blood Count 12.2 x10^3/uL (4.0-11.0) Red Blood Count 2.58 x10^6/uL (3.50-5.40) Hemoglobin 7.0 g/dL (12.0-15.5) Hematocrit 23.4 % (36.0-47.0) Mean Corpuscular Volume 91 fL (79-100) Mean Corpuscular Hemoglobin 27 pg (25-35) Mean Corpuscular Hemoglobin Concent 30 g/dL (31-37) Red Cell Distribution Width 20.5 % (11.5-14.5) Platelet Count 394 x10^3/uL (140-400) Sodium Level 151 mmol/L (136-145) Potassium Level 4.1 mmol/L (3.5-5.1) Chloride Level 119 mmol/L (98-107) Carbon Dioxide Level 21 mmol/L (21-32) Anion Gap 11 (6-14) Blood Urea Nitrogen 75 mg/dL (7-20) Creatinine 2.0 mg/dL (0.6-1.0) Estimated GFR (Cockcroft-Gault) 26.5 Glucose Level 164 mg/dL (70-99) Calcium Level 7.0 mg/dL (8.5-10.1) Test 12/01/19 06:58 Glucose (Fingerstick) 192 mg/dL (70-99) Micro NEG ALEXANDRA 56 PSEUDOMONAS AERUGINOSA ANTIBIOTIC RESULT INTERPRETATION AMIKACIN <=16 S AZTREONAM >16 R CEFTAZIDIME >16 R CIPROFLOXACIN <=0.25 S CEFEPIME 16 I GENTAMICIN <=2 S LEVOFLOXACIN <=0.5 S CONTINUED ON NEXT PAGE RUN DATE: 09/28/19 [facility] *LIVE* PAGE 2 RUN TIME: 112 Specimen Inquiry SPEC: [id number] PATIENT: SCOTT CUELLAR [id number] (Continued) Procedure Result ANTIMICROBIAL SUSCEPTIBILITY Preliminary (continued) MEROPENEM <=1 S PIPERACILLIN/TAZOBACTAM 64 S TOBRAMYCIN <=2 S Unless otherwise specified, Testing Performed by: [facility] [address] [place] [address] For Inquires, the Physician may contact the Microbiology department at [phone] Objective: Assessment: Patient with prolonged hospitalization more than 4 months Multiple medical problems Multiple surgical procedures Intermittent fevers now improving S/P Exp. 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 parapsilosis & PSAE (I-merrem/ceftazidime/AZT/cefepime)) Leukocytosis - better Loose stool on tube feed - WBC down and no gross fever Anemia Acute gallstone pancreatitis with persistent necrosis - 07/27. CT A/P Increased ascites. 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 status post KAYLIN drain placement; C. parapsilosis. s/p drain 08/23 + yeast & high amylase; s/p additional drain on 08/25. Drains removed. -08/23. fluid devyn parapsilosis fluid, amylase high - 09/23 showed multiple pseudocysts, slight larger on the right. s/p drains x 3, 09/24. + PSAE (MDRO-R Cefepime, Zosyn ALEXANDRA < 64) and yeast, -09/24 s/p drain replacement x 3; fluid cult PSAE (MDRO), yeast; treated -10/29 CT A/P shows smaller fluid collections. -722 CT abdomen and pelvis drains in place Ascites s/p paracentesis 08/02 & 08/23. C. parapsilosis Cholelithiasis with thickening of the gallbladder wall. JUANA, Hyperkalemia, Metabolic acidosis off dialysis Acute hypoxic resp failure. trach/vent. 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
[2019-12-01] MEDS: PANTOPRAZOLE IV PUSH 40 MG VIAL. IVP SCH (08:36)
[2019-12-01] MEDS: VITS A & D/LANOLIN TOPICAL OINTMENT 42GM TUBE. TP PRN (08:36)
[2019-12-01] MEDS: CEFEPIME HCL IV Push 2 GM VIAL. IVP SCH (08:38)
[2019-12-01] MEDS: MULTIVITAMINS,THERAPEUTIC 5 ML ORAL LIQUID. PEG SCH (08:43)
[2019-12-01] MEDS ORDERED: IV NORMAL SALINE 1000ML BAG 1,000 ML IV ONE ×2 (09:45→18:00)
--- NOTE | 2019-12-01 10:22 | NUR ---
SS following up with discharge planning. SS reviewed pt chart and discussed with pt RN. Pt is currently requiring oxygen. Pt having unit of blood today due to hemoglobin. Pt on IV Cefepime and IV Flagyl. Pt on tube feeds. Pt has bags over drainage sites. Pt max assist with PT/OT. Pt self pay. [facility] continues to try and get needed information from pt's family for disability application. SS will continue to follow for discharge planning.
--- NOTE | 2019-12-01 12:08 | NUR ---
Per Dr. Lindquist, hold blood thinners today because of Hgb of 7.0.
--- NOTE | 2019-12-01 12:28 | PDOC ---
Date of Service: DATE: 12/01/19 TIME: 12:25 Objective: Objective: Nurse called yesterday w/ change in drainage, advised to contact surgery. Reviewed chart - liquid stool mentioned. Vital Signs: Vital Signs Date Time Temp Pulse Resp B/P (MAP) Pulse Ox O2 Delivery O2 Flow Rate FiO2 12/01/19 11:44 Nasal Cannula 1.5 12/01/19 10:37 97.6 120 24 105/35 (58) 98 97.6 Labs: Laboratory Tests Test 11/30/19 17:40 12/01/19 00:26 12/01/19 06:58 12/01/19 11:14 Glucose (Fingerstick) 156 mg/dL (70-99) 157 mg/dL (70-99) 192 mg/dL (70-99) 144 mg/dL (70-99) PE: GEN: chronically ill LUNGS: breathing treatment/mask NEURO/PSYCH: lethargic A/P: S/p pancreatic necrosectomy Anemia - transfusion ordered -- Continue support. Justicifation of Admission Dx: Justifications for Admission: Justification of Admission Dx: Yes CYNDEE FALCON Dec 01, 2019 12:28
--- NOTE | 2019-12-01 12:41 | PDOC ---
PROGRESS NOTES Date of Service: DATE: 12/01/19 TIME: 12:40 Chief Complaint Chief Complaint S/P Exp. 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 parapsilosis & PSAE 11/12 (I-merrem/ceftazidime/AZT/cefepime)) Leucocytosis Fevers, intermittent Acute gallstone pancreatitis with persistent necrosis Acute hypoxic Respiratory failure required mechanical ventilation Tracheostomy Bilateral pleural effusions/pulm edema s/p Throacentesis on 10/03/2019 HTN Intractable pain Intractable nausea Covid 19 negative Acute on chronic anemia Abd distention - U/S and CT reviewed s/p 0.4 L of opaque, debris-containing ascites was removed 08/23 Gallstone pancreatitis with necrosis. -CT A/P 09/23 showed multiple pseudocysts, slight larger on the right. s/p drains x 3, 09/24. + PSAE (MDRO-R Cefepime, Zosyn ALEXANDRA < 64) and yeast, -s/p drain 08/14. C. parapsilosis. s/p drain 08/23 + yeast & high amylase; s/p additional drain on 08/25. Drains removed. Ascites s/p paracentesis 08/02 & 08/23. C. parapsilosis JUANA. off HD. A large fluid collection in the pancreatic bed has slightly decreased in size, described below, the pancreas itself is difficult to visualize, which could be due to necrosis or obscuration of pancreatic parenchyma from the surrounding fluid collection.10/02 - 08/14 status post KAYLIN drain placement + C paropsilosis. s/p additional drains 08/25 Hypocalcemia Prediabetes s/p trach Hyperglycemia Severe protein-caloric malnutrition Extensive retroperitoneal fluid collections persist. Percutaneous drains remain within the collections in both paracolic gutters. These communicate with additional pelvic and peripancreatic collections. History of Present Illness History of Present Illness 11/30, increased IV fluid, cont current bolusing daily , LR increased cr better, Hgb worse today, will give 1 u PRBC 11/29. pain in legs, BP better, some better Urine outptu 11/28. dyspnea and mild distress worsened this AM. but was able to walk some with PT later. still HR 140 sometimes, 11/28/2019 Patient seen and examined Afebrile Resting in NAD Tachycardic and tachypneic overnight Recurring leukocytosis, 23.0 Chart reviewed Discussed with RN 11/26: Afebrile. Calcium down to 10.1. Little more tachycardic today with some more secretions. No O2 requirements. Does not wish to wear her speaking valve. Will check CXR. 11/25: Afebrile, weak, having more secretions not wearing a speaking valve today. WBC 10, Hb 8.8, NA 144, and K3.7, BUN 12, CR 0.5, calcium down to 10.3. After zoledronic acid 11/24: Had a rash after calcitonin injection. Discussed with nephrology with her calcium moving from 11.3-10.9 will give IV bisphosphonate today, zoledronic acid. 11/23: Hb stable. Afebrile. Weak. Calcium increased. Shortness of breath is improving. Plan for calcitonin today, lasix, and saline 11/22: Hemoglobin abnormally low on repeat has been stable 7.2. Calcium up to 10.9. She is able to work with PT, she is asking to eat. Social work is been having difficulties with both of her daughters completing the financial aspect of disability paperwork which is been prolonging her stay over the past 5 months. Plan to check PTH and to treat hypercalcemia with 1 L normal saline 40 mg of IV Lasix and repeat labs in a.m. 11/21: Not wishing to wear her speaking valve. J tube having some difficulties. Afebrile. Jamaal bedside to aid her. transferred from ICU today 11/20: No overnight events. Calcium 10.7 on AM labs. She is still a bit slow to to respond, but follows commands well. Does not want speaking valve with me. Pain is better controlled in her abdomen. Wound care to see today. Will check liver function and phos levels given her calcium elevation. 11/19: Patient seen and examined bedside. Positive fluid balance in the past 24 hours. Patient's chart, labs, images were reviewed and discussed with RN 11/18: No acute events overnight. Seen and examined at bedside. Patient had a fever 100.2. Negative fluid balance of 150 cc. Patient's chart, labs, images were reviewed and discussed with RN 11/17: Patient seen and examined at bedside. No acute events overnight. Positive fluid balance 633. Patient's chart, labs, images were reviewed and discussed with RN 11/16: Patient seen and examined bedside. No acute events overnight. Patient's chart, labs, images were reviewed and discussed with RN 11/14: Patient seen and examined bedside. Patient appears to be in no obvious pain. All drains have been adequately draining. Patient continues to be on TPN. Chart labs and imaging was reviewed. Negative fluid balance of 270 cc 11/13:Patient seen and examined in the ICU. Patient still requires extensive care. 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 Chart, labs, imaging was reviewed. UOP with + 500cc balance. 11/11: Patient seen in and examined in the ICU. She is still extremely critically ill. Appears weak, frail, and pale. Better color today with improved eye contact and expression. Discussed with RN. Chart reviewed 11/07: Patient seen and examined in the ICU, She is still extremely critically ill, Appears extremely weak frail and pale, Discussed with RN, Chart reviewed Vitals Vitals Vital Signs Date Time Temp Pulse Resp B/P (MAP) Pulse Ox O2 Delivery O2 Flow Rate FiO2 12/01/19 12:25 98 Nasal Cannula 1.5 12/01/19 10:37 97.6 120 24 105/35 (58) 97.6 Physical Exam Physical Exam GENERAL: Resting in bed, NAD HEENT: Pupils equal, oral cavity dry. OC/Op - Dry NECK: Tracheostomy capped LUNGS: Diminished aeration bases, HEART: S1, S2, ABDOMEN: Less distended, mild- bowel sounds hypoactive, soft, GJ drain present, drainage bag in place with depedent drainage : Lind in place EXTREMITIES: Trace generalized edema, no cyanosis. Yeast in groin area SKIN: warm touch. No signs of rash. NEURO: - Alert and responsive RUE PICC site without signs of complications. PIV s clean EC fistula General: Cooperative, mild distress Heart: Normal S1, Normal S2, Other Lungs: Clear Abdomen: Normal bowel sounds, Soft, No tenderness Extremities: No clubbing, No cyanosis, Other (Diffuse edema) Skin: No breakdown Labs LABS Laboratory Tests Test 11/30/19 17:40 12/01/19 00:26 12/01/19 04:30 12/01/19 06:58 Glucose (Fingerstick) 156 mg/dL (70-99) 157 mg/dL (70-99) 192 mg/dL (70-99) White Blood Count 12.2 x10^3/uL (4.0-11.0) Red Blood Count 2.58 x10^6/uL (3.50-5.40) Hemoglobin 7.0 g/dL (12.0-15.5) Hematocrit 23.4 % (36.0-47.0) Mean Corpuscular Volume 91 fL (79-100) Mean Corpuscular Hemoglobin 27 pg (25-35) Mean Corpuscular Hemoglobin Concent 30 g/dL (31-37) Red Cell Distribution Width 20.5 % (11.5-14.5) Platelet Count 394 x10^3/uL (140-400) Sodium Level 151 mmol/L (136-145) Potassium Level 4.1 mmol/L (3.5-5.1) Chloride Level 119 mmol/L (98-107) Carbon Dioxide Level 21 mmol/L (21-32) Anion Gap 11 (6-14) Blood Urea Nitrogen 75 mg/dL (7-20) Creatinine 2.0 mg/dL (0.6-1.0) Estimated GFR (Cockcroft-Gault) 26.5 Glucose Level 164 mg/dL (70-99) Calcium Level 7.0 mg/dL (8.5-10.1) Test 12/01/19 11:14 Glucose (Fingerstick) 144 mg/dL (70-99) Assessment and Plan Assessmemt and Plan Problems Medical Problems: (1) Acute pancreatitis Status: Acute (2) Cholelithiasis Status: Acute Comment Review of Relevant I have reviewed the following items kolby (where applicable) has been applied. Labs Laboratory Tests Test 11/29/19 13:42 11/29/19 14:30 11/29/19 18:09 11/29/19 21:30 O2 Saturation 98 % (92-99) Arterial Blood pH 7.29 (7.35-7.45) Arterial Blood pCO2 at Patient Temp 35 mmHg (35-46) Arterial Blood pO2 at Patient Temp 105 mmHg (75-108) Arterial Blood HCO3 17 mmol/L (21-28) Arterial Blood Base Excess -9 mmol/L (-3-3) FiO2 4l n.c. White Blood Count 19.3 x10^3/uL (4.0-11.0) Red Blood Count 2.64 x10^6/uL (3.50-5.40) Hemoglobin 7.4 g/dL (12.0-15.5) Hematocrit 23.4 % (36.0-47.0) Mean Corpuscular Volume 89 fL (79-100) Mean Corpuscular Hemoglobin 28 pg (25-35) Mean Corpuscular Hemoglobin Concent 32 g/dL (31-37) Red Cell Distribution Width 20.0 % (11.5-14.5) Platelet Count 439 x10^3/uL (140-400) Neutrophils (%) (Auto) 93 % (31-73) Lymphocytes (%) (Auto) 2 % (24-48) Monocytes (%) (Auto) 4 % (0-9) Eosinophils (%) (Auto) 0 % (0-3) Basophils (%) (Auto) 0 % (0-3) Neutrophils # (Auto) 18.0 x10^3/uL (1.8-7.7) Lymphocytes # (Auto) 0.4 x10^3/uL (1.0-4.8) Monocytes # (Auto) 0.8 x10^3/uL (0.0-1.1) Eosinophils # (Auto) 0.0 x10^3/uL (0.0-0.7) Basophils # (Auto) 0.0 x10^3/uL (0.0-0.2) Sodium Level 154 mmol/L (136-145) Potassium Level 5.2 mmol/L (3.5-5.1) Chloride Level 117 mmol/L (98-107) Carbon Dioxide Level 29 mmol/L (21-32) Anion Gap 8 (6-14) Blood Urea Nitrogen 69 mg/dL (7-20) Creatinine 2.2 mg/dL (0.6-1.0) Estimated GFR (Cockcroft-Gault) 23.7 BUN/Creatinine Ratio 31 (6-20) Glucose Level 219 mg/dL (70-99) Lactic Acid Level 3.3 mmol/L (0.4-2.0) 2.8 mmol/L (0.4-2.0) Calcium Level 7.4 mg/dL (8.5-10.1) Total Bilirubin 0.3 mg/dL (0.2-1.0) Aspartate Amino Transf (AST/SGOT) 15 U/L (15-37) Alanine Aminotransferase (ALT/SGPT) 10 U/L (14-59) Alkaline Phosphatase 76 U/L (46-116) Total Protein 4.9 g/dL (6.4-8.2) Albumin 1.3 g/dL (3.4-5.0) Albumin/Globulin Ratio 0.4 (1.0-1.7) Glucose (Fingerstick) 194 mg/dL (70-99) Test 11/30/19 00:38 11/30/19 05:15 11/30/19 07:19 11/30/19 11:59 Glucose (Fingerstick) 167 mg/dL (70-99) 166 mg/dL (70-99) 126 mg/dL (70-99) White Blood Count 13.8 x10^3/uL (4.0-11.0) Red Blood Count 2.64 x10^6/uL (3.50-5.40) Hemoglobin 7.3 g/dL (12.0-15.5) Hematocrit 23.7 % (36.0-47.0) Mean Corpuscular Volume 90 fL (79-100) Mean Corpuscular Hemoglobin 28 pg (25-35) Mean Corpuscular Hemoglobin Concent 31 g/dL (31-37) Red Cell Distribution Width 19.6 % (11.5-14.5) Platelet Count 397 x10^3/uL (140-400) Neutrophils (%) (Auto) 87 % (31-73) Lymphocytes (%) (Auto) 7 % (24-48) Monocytes (%) (Auto) 5 % (0-9) Eosinophils (%) (Auto) 1 % (0-3) Basophils (%) (Auto) 0 % (0-3) Neutrophils # (Auto) 12.0 x10^3/uL (1.8-7.7) Lymphocytes # (Auto) 0.9 x10^3/uL (1.0-4.8) Monocytes # (Auto) 0.7 x10^3/uL (0.0-1.1) Eosinophils # (Auto) 0.2 x10^3/uL (0.0-0.7) Basophils # (Auto) 0.0 x10^3/uL (0.0-0.2) Sodium Level 152 mmol/L (136-145) Potassium Level 4.6 mmol/L (3.5-5.1) Chloride Level 117 mmol/L (98-107) Carbon Dioxide Level 26 mmol/L (21-32) Anion Gap 9 (6-14) Blood Urea Nitrogen 76 mg/dL (7-20) Creatinine 2.1 mg/dL (0.6-1.0) Estimated GFR (Cockcroft-Gault) 25.0 BUN/Creatinine Ratio 36 (6-20) Glucose Level 171 mg/dL (70-99) Calcium Level 7.4 mg/dL (8.5-10.1) Total Bilirubin 0.2 mg/dL (0.2-1.0) Aspartate Amino Transf (AST/SGOT) 20 U/L (15-37) Alanine Aminotransferase (ALT/SGPT) 8 U/L (14-59) Alkaline Phosphatase 86 U/L (46-116) Total Protein 5.0 g/dL (6.4-8.2) Albumin 1.3 g/dL (3.4-5.0) Albumin/Globulin Ratio 0.4 (1.0-1.7) Test 11/30/19 17:40 12/01/19 00:26 12/01/19 04:30 12/01/19 06:58 Glucose (Fingerstick) 156 mg/dL (70-99) 157 mg/dL (70-99) 192 mg/dL (70-99) White Blood Count 12.2 x10^3/uL (4.0-11.0) Red Blood Count 2.58 x10^6/uL (3.50-5.40) Hemoglobin 7.0 g/dL (12.0-15.5) Hematocrit 23.4 % (36.0-47.0) Mean Corpuscular Volume 91 fL (79-100) Mean Corpuscular Hemoglobin 27 pg (25-35) Mean Corpuscular Hemoglobin Concent 30 g/dL (31-37) Red Cell Distribution Width 20.5 % (11.5-14.5) Platelet Count 394 x10^3/uL (140-400) Sodium Level 151 mmol/L (136-145) Potassium Level 4.1 mmol/L (3.5-5.1) Chloride Level 119 mmol/L (98-107) Carbon Dioxide Level 21 mmol/L (21-32) Anion Gap 11 (6-14) Blood Urea Nitrogen 75 mg/dL (7-20) Creatinine 2.0 mg/dL (0.6-1.0) Estimated GFR (Cockcroft-Gault) 26.5 Glucose Level 164 mg/dL (70-99) Calcium Level 7.0 mg/dL (8.5-10.1) Test 12/01/19 11:14 Glucose (Fingerstick) 144 mg/dL (70-99) Laboratory Tests Test 11/30/19 17:40 12/01/19 00:26 12/01/19 04:30 12/01/19 06:58 Glucose (Fingerstick) 156 mg/dL (70-99) 157 mg/dL (70-99) 192 mg/dL (70-99) White Blood Count 12.2 x10^3/uL (4.0-11.0) Red Blood Count 2.58 x10^6/uL (3.50-5.40) Hemoglobin 7.0 g/dL (12.0-15.5) Hematocrit 23.4 % (36.0-47.0) Mean Corpuscular Volume 91 fL (79-100) Mean Corpuscular Hemoglobin 27 pg (25-35) Mean Corpuscular Hemoglobin Concent 30 g/dL (31-37) Red Cell Distribution Width 20.5 % (11.5-14.5) Platelet Count 394 x10^3/uL (140-400) Sodium Level 151 mmol/L (136-145) Potassium Level 4.1 mmol/L (3.5-5.1) Chloride Level 119 mmol/L (98-107) Carbon Dioxide Level 21 mmol/L (21-32) Anion Gap 11 (6-14) Blood Urea Nitrogen 75 mg/dL (7-20) Creatinine 2.0 mg/dL (0.6-1.0) Estimated GFR (Cockcroft-Gault) 26.5 Glucose Level 164 mg/dL (70-99) Calcium Level 7.0 mg/dL (8.5-10.1) Test 12/01/19 11:14 Glucose (Fingerstick) 144 mg/dL (70-99) Microbiology 11/28/19 Blood Culture - Preliminary, Resulted NO GROWTH AFTER 3 DAYS 11/13/19 Gram Stain - Final, Complete 11/13/19 Aerobic Culture - Final, Complete 11/13/19 Urine Culture - Final, Complete 11/08/19 Gram Stain - Final, Complete 11/08/19 Aerobic and Anaerobic Culture - Final, Complete 11/06/19 Gram Stain Evaluation - Final, Complete 11/06/19 Respiratory Culture - Final, Complete 11/06/19 Antimicrobic Susceptibility - Final, Complete 10/18/19 Gram Stain - Final, Complete 10/18/19 Aerobic and Anaerobic Culture - Final, Complete 10/18/19 Antimicrobic Susceptibility - Final, Complete Medications Current Medications Sodium Chloride 1,000 ml @ 1,000 mls/hr Q1H IV Last administered on 07/04/19at 03:00; Start 07/04/19 at 03:00; Stop 07/04/19 at 03:59; Status DC Ondansetron HCl (Zofran) 4 mg 1X ONCE IVP Last administered on 07/04/19at 03:27; Start 07/04/19 at 03:00; Stop 07/04/19 at 03:01; Status DC Morphine Sulfate (Morphine Sulfate) 4 mg 1X ONCE IV ; Start 07/04/19 at 03:00; Stop 07/04/19 at 03:01; Status Cancel Ketorolac Tromethamine (Toradol 30mg Vial) 30 mg 1X ONCE IV Last administered on 07/04/19at 02:54; Start 07/04/19 at 03:00; Stop 07/04/19 at 03:01; Status DC Fentanyl Citrate (Fentanyl 2ml Vial) 25 mcg 1X ONCE IVP Last administered on 07/04/19at 03:23; Start 07/04/19 at 03:30; Stop 07/04/19 at 03:31; Status DC Fentanyl Citrate (Fentanyl 2ml Vial) 100 mcg STK-MED ONCE .ROUTE ; Start at 03:18; Stop 07/04/19 at 03:18; Status DC Iohexol (Omnipaque 350 Mg/ml) 90 ml 1X ONCE IV Last administered on 07/04/19at 03:25; Start 07/04/19 at 03:30; Stop 07/04/19 at 03:31; Status DC Info (CONTRAST GIVEN -- Rx MONITORING) 1 each PRN DAILY PRN MC SEE COMMENTS; Start 07/04/19 at 03:30; Stop 07/06/19 at 03:29; Status DC Hydromorphone HCl (Dilaudid) 0.5 mg 1X ONCE IV Last administered on 07/04/19at 03:55; Start 07/04/19 at 04:30; Stop 07/04/19 at 04:32; Status DC Ondansetron HCl (Zofran) 4 mg PRN Q8HRS PRN IV NAUSEA/VOMITING 1ST CHOICE; Start 07/04/19 at 05:00; Stop 07/04/19 at 09:27; Status DC Morphine Sulfate (Morphine Sulfate) 2 mg PRN Q2HR PRN IV SEVERE PAIN 7-10 Last administered on 07/05/19at 12:26; Start 07/04/19 at 05:00; Stop 07/05/19 at 14:15; Status DC Sodium Chloride 1,000 ml @ 125 mls/hr Q8H IV Last administered on 07/04/19at 20:56; Start 07/04/19 at 05:00; Stop 07/05/19 at 04:59; Status DC Hydromorphone HCl (Dilaudid) 0.5 mg PRN Q3HRS PRN IV SEVERE PAIN 7-10 Last administered on 07/05/19at 10:06; Start 07/04/19 at 05:00; Stop 07/05/19 at 12:01; Status DC Piperacillin Sod/ Tazobactam Sod 4.5 gm/Sodium Chloride 100 ml @ 200 mls/hr 1X ONCE IV Last administered on 07/04/19at 05:44; Start 07/04/19 at 06:00; Stop 07/04/19 at 06:29; Status DC Ondansetron HCl (Zofran) 4 mg PRN Q4HRS PRN IV NAUSEA/VOMITING 1ST CHOICE Last administered on 11/30/19at 12:43; Start 07/04/19 at 09:30 Insulin Human Lispro (HumaLOG) 0-9 UNITS Q6HRS SQ Last administered on 11/28/19at 19:01; Start 07/04/19 at 09:30 Dextrose (Dextrose 50%-Water Syringe) 12.5 gm PRN Q15MIN PRN IV SEE COMMENTS; Start 07/04/19 at 09:30 Pantoprazole Sodium (PROTONIX VIAL for IV PUSH) 40 mg DAILYAC IVP Last administered on 12/01/19at 08:36; Start 07/04/19 at 11:30 Prochlorperazine Edisylate (Compazine) 10 mg PRN Q6HRS PRN IV NAUSEA/VOMITING, 2nd CHOICE Last administered on 11/28/19at 00:42; Start 07/04/19 at 17:45 Atenolol (Tenormin) 100 mg DAILY PO ; Start 07/05/19 at 09:00; Stop 07/04/19 at 20:08; Status DC Metoprolol Tartrate (Lopressor Vial) 2.5 mg Q6HRS IVP Last administered on 07/05/19at 05:51; Start 07/04/19 at 20:15; Stop 07/05/19 at 10:02; Status DC Metoprolol Tartrate (Lopressor Vial) 5 mg Q6HRS IVP Last administered on 07/14/19at 00:12; Start 07/05/19 at 10:15; Stop 07/16/19 at 08:48; Status DC Hydromorphone HCl (Dilaudid) 1 mg PRN Q3HRS PRN IV SEVERE PAIN 7-10 Last administered on 07/11/19at 05:13; Start 07/05/19 at 12:00; Stop 07/19/19 at 00:25; Status DC Lidocaine HCl (Buffered Lidocaine 1%) 3 ml STK-MED ONCE .ROUTE ; Start 07/05/19 at 12:55; Stop 07/05/19 at 12:56; Status DC Albumin Human 500 ml @ 125 mls/hr 1X ONCE IV Last administered on 07/05/19at 14:33; Start 07/05/19 at 14:30; Stop 07/05/19 at 18:32; Status DC Norepinephrine Bitartrate 8 mg/ Dextrose 258 ml @ 17.299 mls/ hr CONT PRN IV PER PROTOCOL Last administered on 08/02/19at 12:48; Start 07/05/19 at 15:30; Stop 08/05/19 at 09:19; Status DC Sodium Chloride 1,000 ml @ 125 mls/hr Q8H IV Last administered on 07/05/19at 21:04; Start 07/05/19 at 16:00; Stop 07/06/19 at 02:42; Status DC Albumin Human 500 ml @ 125 mls/hr PRN BID PRN IV After every 2L NSS & BP < 90mm Last administered on 10/18/19at 16:06; Start 07/05/19 at 16:00; Stop 10/21/19 at 09:30; Status DC Iohexol (Omnipaque 300 Mg/ml) 60 ml 1X ONCE IV Last administered on 07/05/19at 17:20; Start 07/05/19 at 17:00; Stop 07/05/19 at 17:01; Status DC Info (CONTRAST GIVEN -- Rx MONITORING) 1 each PRN DAILY PRN MC SEE COMMENTS; Start 07/05/19 at 17:00; Stop 07/07/19 at 16:59; Status DC Meropenem 1 gm/ Sodium Chloride 100 ml @ 200 mls/hr Q8HRS IV Last administered on 07/06/19at 05:45; Start 07/05/19 at 20:00; Stop 07/06/19 at 08:48; Status DC Furosemide (Lasix) 40 mg 1X ONCE IVP Last administered on 07/05/19at 22:12; Start 07/05/19 at 22:30; Stop 07/05/19 at 22:31; Status DC Calcium Chloride 1000 mg/Sodium Chloride 110 ml @ 220 mls/hr 1X ONCE IV Last administered on 07/05/19at 22:11; Start 07/05/19 at 22:30; Stop 07/05/19 at 22:59; Status DC Albuterol Sulfate (Ventolin Neb Soln) 2.5 mg 1X ONCE NEB Last administered on 07/06/19at 00:56; Start 07/05/19 at 22:30; Stop 07/05/19 at 22:31; Status DC Insulin Human Regular (HumuLIN R VIAL) 5 unit 1X ONCE IV Last administered on 07/05/19at 22:14; Start 07/05/19 at 22:30; Stop 07/05/19 at 22:31; Status DC Magnesium Sulfate 50 ml @ 25 mls/hr 1X ONCE IV Last administered on 07/06/19at 02:57; Start 07/06/19 at 03:00; Stop 07/06/19 at 04:59; Status DC Calcium Gluconate 1000 mg/Sodium Chloride 110 ml @ 220 mls/hr 1X ONCE IV Last administered on 07/06/19at 02:46; Start 07/06/19 at 03:00; Stop 07/06/19 at 03:29; Status DC Sodium Chloride 1,000 ml @ 200 mls/hr Q5H IV Last administered on 07/06/19at 02:46; Start 07/06/19 at 03:00; Stop 07/06/19 at 10:21; Status DC Calcium Gluconate 1000 mg/Sodium Chloride 110 ml @ 220 mls/hr 1X ONCE IV Last administered on 07/06/19at 03:21; Start 07/06/19 at 03:30; Stop 07/06/19 at 03:59; Status DC Sodium Bicarbonate 50 meq/Sodium Chloride 1,050 ml @ 75 mls/hr Q14H IV Last administered on 07/10/19at 21:10; Start 07/06/19 at 07:30; Stop 07/11/19 at 10:28; Status DC Calcium Gluconate 2000 mg/Sodium Chloride 120 ml @ 220 mls/hr 1X ONCE IV Last administered on 07/06/19at 09:05; Start 07/06/19 at 07:30; Stop 07/06/19 at 08:02; Status DC Lidocaine HCl (Xylocaine-Mpf 1% 2ml Vial) 2 ml STK-MED ONCE .ROUTE ; Start 07/06/19 at 08:47; Stop 07/06/19 at 08:47; Status DC Meropenem 500 mg/ Sodium Chloride 50 ml @ 100 mls/hr Q12HR IV Last administered on 07/11/19at 21:01; Start 07/06/19 at 18:00; Stop 07/12/19 at 07:58; Status DC Lidocaine HCl (Buffered Lidocaine 1%) 3 ml STK-MED ONCE .ROUTE ; Start 07/06/19 at 09:46; Stop 07/06/19 at 09:46; Status DC Lidocaine HCl (Buffered Lidocaine 1%) 6 ml 1X ONCE INJ Last administered on 07/06/19at 10:26; Start 07/06/19 at 10:15; Stop 07/06/19 at 10:16; Status DC Info (Tpn Per Pharmacy) 1 each PRN DAILY PRN MC SEE COMMENTS Last administered on 11/13/19at 08:31; Start 07/06/19 at 12:00; Stop 11/13/19 at 10:41; Status DC Sodium Chloride 1,000 ml @ 1,000 mls/hr Q1H PRN IV hypotension; Start 07/06/19 at 12:07; Stop 07/06/19 at 18:06; Status DC Diphenhydramine HCl (Benadryl) 25 mg 1X PRN PRN IV ITCHING; Start 07/06/19 at 12:15; Stop 07/07/19 at 12:14; Status DC Diphenhydramine HCl (Benadryl) 25 mg 1X PRN PRN IV ITCHING; Start 07/06/19 at 12:15; Stop 07/07/19 at 12:14; Status DC Sodium Chloride 1,000 ml @ 400 mls/hr Q2H30M PRN IV PATENCY; Start 07/06/19 at 12:07; Stop 07/07/19 at 00:06; Status DC Info (PHARMACY MONITORING -- do not chart) 1 each PRN DAILY PRN MC SEE COMMENTS; Start 07/06/19 at 12:15; Stop 07/08/19 at 08:13; Status DC Sodium Chloride 90 meq/Calcium Gluconate 10 meq/ Multivitamins 10 ml/Chromium/ Copper/Manganese/ Seleni/Zn 1 ml/ Total Parenteral Nutrition/Amino Acids/Dextrose/ Fat Emulsion Intravenous 55.005 ml @ 2.292 mls/hr TPN CONT IV ; Start 07/06/19 at 22:00; Stop 07/06/19 at 12:33; Status DC Info (Tpn Per Pharmacy) 1 each PRN DAILY PRN MC SEE COMMENTS; Start 07/06/19 at 12:30; Status UNV Sodium Chloride 90 meq/Calcium Gluconate 10 meq/ Multivitamins 10 ml/Chromium/ Copper/Manganese/ Seleni/Zn 0.5 ml/ Total Parenteral Nutrition/Amino Acids/Dextrose/ Fat Emulsion Intravenous 1,512 ml @ 63 mls/hr TPN CONT IV Last administered on 07/06/19at 22:06; Start 07/06/19 at 22:00; Stop 07/07/19 at 21:59; Status DC Calcium Carbonate/ Glycine (Tums) 500 mg PRN AFTMEALHC PRN PO INDIGESTION; Start 07/06/19 at 17:45; Stop 08/31/19 at 10:25; Status DC Calcium Gluconate (Calcium Gluconate) 2,000 mg 1X ONCE IVP Last administered on 07/07/19at 02:19; Start 07/07/19 at 02:15; Stop 07/07/19 at 02:16; Status DC Calcium Chloride 3000 mg/Sodium Chloride 1,030 ml @ 50 mls/hr [id number] IV Last administered on 07/09/19at 02:17; Start 07/07/19 at 08:00; Stop 07/09/19 at 15:23; Status DC Lorazepam (Ativan Inj) 1 mg PRN Q4HRS PRN IVP ANXIETY / AGITATION, 2nd choic Last administered on 08/05/19at 03:51; Start 07/07/19 at 09:00; Stop 08/05/19 at 09:19; Status DC Sodium Chloride 1,000 ml @ 1,000 mls/hr Q1H PRN IV hypotension; Start 07/07/19 at 08:56; Stop 07/07/19 at 14:55; Status DC Albumin Human 200 ml @ 200 mls/hr 1X PRN PRN IV Hypotension; Start 07/07/19 at 09:00; Stop 07/07/19 at 14:59; Status DC Diphenhydramine HCl (Benadryl) 25 mg 1X PRN PRN IV ITCHING; Start 07/07/19 at 09:00; Stop 07/08/19 at 08:59; Status DC Diphenhydramine HCl (Benadryl) 25 mg 1X PRN PRN IV ITCHING; Start 07/07/19 at 09:00; Stop 07/08/19 at 08:59; Status DC Sodium Chloride 1,000 ml @ 400 mls/hr Q2H30M PRN IV PATENCY; Start 07/07/19 at 08:56; Stop 07/07/19 at 20:55; Status DC Info (PHARMACY MONITORING -- do not chart) 1 each PRN DAILY PRN MC SEE COMMENTS; Start 07/07/19 at 09:00; Status UNV Info (PHARMACY MONITORING -- do not chart) 1 each PRN DAILY PRN MC SEE COMMENTS; Start 07/07/19 at 09:00; Stop 07/08/19 at 08:13; Status DC Digoxin (Lanoxin) 500 mcg 1X ONCE IV Last administered on 07/07/19at 10:04; Start 07/07/19 at 10:00; Stop 07/07/19 at 10:01; Status DC Digoxin (Lanoxin) 125 mcg 1X ONCE IV Last administered on 07/07/19at 17:10; Start 07/07/19 at 18:00; Stop 07/07/19 at 18:01; Status DC Magnesium Sulfate 100 ml @ 25 mls/hr 1X ONCE IV Last administered on 07/07/19at 12:48; Start 07/07/19 at 13:00; Stop 07/07/19 at 16:59; Status DC Sodium Chloride 90 meq/Magnesium Sulfate 10 meq/ Calcium Gluconate 20 meq/ Multivitamins 10 ml/Chromium/ Copper/Manganese/ Seleni/Zn 0.5 ml/ Total Parenteral Nutrition/Amino Acids/Dextrose/ Fat Emulsion Intravenous 1,512 ml @ 63 mls/hr TPN CONT IV Last administered on 07/07/19at 22:25; Start 07/07/19 at 22:00; Stop 07/08/19 at 21:59; Status DC Sodium Chloride 1,000 ml @ 1,000 mls/hr Q1H PRN IV hypotension; Start 07/08/19 at 08:05; Stop 07/08/19 at 14:04; Status DC Albumin Human 200 ml @ 200 mls/hr 1X ONCE IV Last administered on 07/08/19at 08:57; Start 07/08/19 at 08:15; Stop 07/08/19 at 09:14; Status DC Diphenhydramine HCl (Benadryl) 25 mg 1X PRN PRN IV ITCHING; Start 07/08/19 at 08:15; Stop 07/09/19 at 08:14; Status DC Diphenhydramine HCl (Benadryl) 25 mg 1X PRN PRN IV ITCHING; Start 07/08/19 at 08:15; Stop 07/09/19 at 08:14; Status DC Sodium Chloride 1,000 ml @ 400 mls/hr Q2H30M PRN IV PATENCY; Start 07/08/19 at 08:05; Stop 07/08/19 at 20:04; Status DC Info (PHARMACY MONITORING -- do not chart) 1 each PRN DAILY PRN MC SEE COMMENTS; Start 07/08/19 at 08:15; Stop 07/12/19 at 07:57; Status DC Sodium Chloride 90 meq/Potassium Chloride 15 meq/ Potassium Phosphate 10 mmol/ Magnesium Sulfate 10 meq/Calcium Gluconate 20 meq/ Multivitamins 10 ml/Chromium/ Copper/Manganese/ Seleni/Zn 0.5 ml/ Total Parenteral Nutrition/Amino Acids/Dextrose/ Fat Emulsion Intravenous 1,512 ml @ 63 mls/hr TPN CONT IV Last administered on 07/08/19at 21:01; Start 07/08/19 at 22:00; Stop 07/09/19 at 21:59; Status DC Potassium Chloride/Water 100 ml @ 100 mls/hr 1X ONCE IV Last administered on 07/08/19at 14:09; Start 07/08/19 at 14:00; Stop 07/08/19 at 14:59; Status DC Benzocaine (Hurricaine One) 1 spray 1X ONCE MM Last administered on 07/08/19at 16:38; Start 07/08/19 at 14:30; Stop 07/08/19 at 14:31; Status DC Lidocaine HCl (Glydo (Lidocaine) Jelly) 1 ramu 1X ONCE MM Last administered on 07/08/19at 16:38; Start 07/08/19 at 14:30; Stop 07/08/19 at 14:31; Status DC Linezolid/Dextrose 300 ml @ 300 mls/hr Q12HR IV Last administered on 07/14/19at 21:04; Start 07/08/19 at 20:00; Stop 07/15/19 at 07:50; Status DC Acetaminophen (Tylenol) 650 mg PRN Q6HRS PRN PO MILD PAIN / TEMP; Start 07/09/19 at 03:30; Stop 07/09/19 at 03:36; Status DC Acetaminophen (Tylenol) 650 mg PRN Q6HRS PRN PEG MILD PAIN / TEMP Last administered on 08/04/19at 19:56; Start 07/09/19 at 03:36; Stop 08/31/19 at 10:25; Status DC Sodium Chloride 1,000 ml @ 1,000 mls/hr Q1H PRN IV hypotension; Start 07/09/19 at 07:50; Stop 07/09/19 at 13:49; Status DC Albumin Human 200 ml @ 200 mls/hr 1X PRN PRN IV Hypotension; Start 07/09/19 at 08:00; Stop 07/09/19 at 13:59; Status DC Sodium Chloride (Normal Saline Flush) 10 ml 1X PRN PRN IV AP catheter pack; Start 07/09/19 at 08:00; Stop 07/10/19 at 07:59; Status DC Sodium Chloride (Normal Saline Flush) 10 ml 1X PRN PRN IV CMM OPERATOR catheter pack; Start 07/09/19 at 08:00; Stop 07/10/19 at 07:59; Status DC Sodium Chloride 1,000 ml @ 400 mls/hr Q2H30M PRN IV PATENCY; Start 07/09/19 at 07:50; Stop 07/09/19 at 19:49; Status DC Info (PHARMACY MONITORING -- do not chart) 1 each PRN DAILY PRN MC SEE COMMENTS; Start 07/09/19 at 08:00; Status UNV Info (PHARMACY MONITORING -- do not chart) 1 each PRN DAILY PRN MC SEE COMMENTS; Start 07/09/19 at 08:00; Stop 07/11/19 at 08:25; Status DC Sodium Chloride 90 meq/Potassium Chloride 15 meq/ Potassium Phosphate 10 mmol/ Magnesium Sulfate 10 meq/Calcium Gluconate 20 meq/ Multivitamins 10 ml/Chromium/ Copper/Manganese/ Seleni/Zn 0.5 ml/ Total Parenteral Nutrition/Amino Acids/Dextrose/ Fat Emulsion Intravenous 1,512 ml @ 63 mls/hr TPN CONT IV Last administered on 07/09/19at 20:57; Start 07/09/19 at 22:00; Stop 07/10/19 at 21:59; Status DC Sodium Chloride 90 meq/Potassium Chloride 15 meq/ Potassium Phosphate 15 mmol/ Magnesium Sulfate 10 meq/Calcium Gluconate 20 meq/ Multivitamins 10 ml/Chromium/ Copper/Manganese/ Seleni/Zn 0.5 ml/ Total Parenteral Nutrition/Amino Acids/Dextrose/ Fat Emulsion Intravenous 1,512 ml @ 63 mls/hr TPN CONT IV ; Start 07/10/19 at 22:00; Stop 07/10/19 at 14:16; Status DC Sodium Chloride 90 meq/Potassium Chloride 15 meq/ Potassium Phosphate 15 mmol/ Magnesium Sulfate 10 meq/Calcium Gluconate 20 meq/ Multivitamins 10 ml/Chromium/ Copper/Manganese/ Seleni/Zn 0.5 ml/ Total Parenteral Nutrition/Amino Acids/Dextrose/ Fat Emulsion Intravenous 1,200 ml @ 50 mls/hr TPN CONT IV ; Start 07/10/19 at 22:00; Stop 07/10/19 at 14:17; Status DC Sodium Chloride 90 meq/Potassium Chloride 15 meq/ Potassium Phosphate 10 mmol/ Magnesium Sulfate 10 meq/Calcium Gluconate 20 meq/ Multivitamins 10 ml/Chromium/ Copper/Manganese/ Seleni/Zn 0.5 ml/ Total Parenteral Nutrition/Amino Acids/Dextrose/ Fat Emulsion Intravenous 1,200 ml @ 50 mls/hr TPN CONT IV Last administered on 07/10/19at 23:29; Start 07/10/19 at 22:00; Stop 07/11/19 at 21:59; Status DC Sodium Chloride 1,000 ml @ 1,000 mls/hr Q1H PRN IV hypotension; Start 07/11/19 at 07:28; Stop 07/11/19 at 13:27; Status DC Albumin Human 200 ml @ 200 mls/hr 1X ONCE IV Last administered on 07/11/19at 08:51; Start 07/11/19 at 07:30; Stop 07/11/19 at 08:29; Status DC Diphenhydramine HCl (Benadryl) 25 mg 1X PRN PRN IV ITCHING; Start 07/11/19 at 07:30; Stop 07/12/19 at 07:29; Status DC Diphenhydramine HCl (Benadryl) 25 mg 1X PRN PRN IV ITCHING; Start 07/11/19 at 07:30; Stop 07/12/19 at 07:29; Status DC Sodium Chloride 1,000 ml @ 400 mls/hr Q2H30M PRN IV PATENCY; Start 07/11/19 at 07:28; Stop 07/11/19 at 19:27; Status DC Info (PHARMACY MONITORING -- do not chart) 1 each PRN DAILY PRN MC SEE COMMENTS; Start 07/11/19 at 07:30; Stop 07/22/19 at 13:01; Status DC Metronidazole 100 ml @ 100 mls/hr Q6HRS IV Last administered on 07/27/19at 06:26; Start 07/11/19 at 08:30; Stop 07/27/19 at 09:58; Status DC Micafungin Sodium 100 mg/Dextrose 100 ml @ 100 mls/hr Q24H IV Last administered on 08/18/19at 08:18; Start 07/11/19 at 09:00; Stop 08/18/19 at 20:58; Status DC Propofol 0 ml @ As Directed STK-MED ONCE IV ; Start 07/11/19 at 07:53; Stop 07/11/19 at 07:53; Status DC Etomidate (Amidate) 20 mg STK-MED ONCE IV ; Start 07/11/19 at 07:53; Stop at 07:54; Status DC Midazolam HCl (Versed) 5 mg STK-MED ONCE .ROUTE ; Start 07/11/19 at 07:57; Stop 07/11/19 at 07:57; Status DC Fentanyl Citrate 30 ml @ 0 mls/hr CONT PRN IV SEE PROTOCOL Last administered on 08/05/19at 06:12; Start 07/11/19 at 08:15; Stop 08/05/19 at 09:19; Status DC Artificial Tears (Artificial Tears) 1 drop PRN Q1HR PRN OU DRY EYE, 1st choice; Start 07/11/19 at 08:15; Stop 08/17/19 at 05:31; Status DC Midazolam HCl 50 mg/Sodium Chloride 50 ml @ 0 mls/hr CONT PRN IV SEE PROTOCOL Last administered on 07/14/19at 22:39; Start 07/11/19 at 08:15; Stop 07/16/19 at 15:59; Status DC Etomidate (Amidate) 8 mg 1X ONCE IV Last administered on 07/11/19at 08:33; Start 07/11/19 at 08:30; Stop 07/11/19 at 08:31; Status DC Succinylcholine Chloride (Anectine) 120 mg 1X ONCE IV Last administered on 07/11/19at 08:34; Start 07/11/19 at 08:30; Stop 07/11/19 at 08:31; Status DC Midazolam HCl (Versed) 5 mg 1X ONCE IV ; Start 07/11/19 at 08:30; Stop 07/11/19 at 08:31; Status DC Potassium Chloride 15 meq/ Bicarbonate Dialysis Soln w/ out KCl 5,007.5 ml @ 1,000 mls/ hr Q5H1M IV Last administered on 07/12/19at 11:11; Start 07/11/19 at 12:00; Stop 07/12/19 at 11:15; Status DC Potassium Chloride 15 meq/ Bicarbonate Dialysis Soln w/ out KCl 5,007.5 ml @ 1,000 mls/ hr Q5H1M IV Last administered on 07/12/19at 11:12; Start 07/11/19 at 12:00; Stop 07/12/19 at 11:17; Status DC Potassium Chloride 15 meq/ Bicarbonate Dialysis Soln w/ out KCl 5,007.5 ml @ 1,000 mls/ hr Q5H1M IV Last administered on 07/12/19at 11:11; Start 07/11/19 at 12:00; Stop 07/12/19 at 11:19; Status DC Sodium Chloride 90 meq/Potassium Chloride 15 meq/ Potassium Phosphate 10 mmol/ Magnesium Sulfate 10 meq/Calcium Gluconate 20 meq/ Multivitamins 10 ml/Chromium/ Copper/Manganese/ Seleni/Zn 0.5 ml/ Total Parenteral Nutrition/Amino Acids/Dextrose/ Fat Emulsion Intravenous 1,400 ml @ 58.333 mls/ hr TPN CONT IV Last administered on 07/11/19at 21:42; Start 07/11/19 at 22:00; Stop 07/12/19 at 21:59; Status DC Heparin Sodium (Porcine) (Heparin Sodium) 5,000 unit Q8HRS SQ Last administered on 07/16/19at 05:55; Start 07/11/19 at 15:00; Stop 07/16/19 at 13:28; Status DC Meropenem 500 mg/ Sodium Chloride 50 ml @ 100 mls/hr Q6HRS IV Last administered on 07/13/19at 06:00; Start 07/12/19 at 09:00; Stop 07/13/19 at 07:29; Status DC Potassium Phosphate 20 mmol/ Sodium Chloride 106.6667 ml @ 51.667 m... 1X ONCE IV Last administered on 07/12/19at 11:22; Start 07/12/19 at 10:15; Stop 07/12/19 at 12:18; Status DC Acetaminophen (Tylenol Supp) 650 mg PRN Q6HRS PRN MA MILD PAIN / TEMP > 100.3'F Last administered on 11/28/19at 15:43; Start 07/12/19 at 10:30 Potassium Chloride/Water 100 ml @ 100 mls/hr Q1H IV Last administered on 07/12/19at 12:12; Start 07/12/19 at 11:00; Stop 07/12/19 at 12:59; Status DC Potassium Chloride 20 meq/ Bicarbonate Dialysis Soln w/ out KCl 5,010 ml @ 1,000 mls/hr Q5H1M IV Last administered on 07/13/19at 08:48; Start 07/12/19 at 12:00; Stop 07/13/19 at 13:03; Status DC Potassium Chloride 20 meq/ Bicarbonate Dialysis Soln w/ out KCl 5,010 ml @ 1,000 mls/hr Q5H1M IV Last administered on 07/17/19at 14:52; Start 07/12/19 at 11:30; Stop 07/17/19 at 19:59; Status DC Potassium Chloride 20 meq/ Bicarbonate Dialysis Soln w/ out KCl 5,010 ml @ 1,000 mls/hr Q5H1M IV Last administered on 07/17/19at 14:53; Start 07/12/19 at 11:30; Stop 07/17/19 at 19:59; Status DC Sodium Chloride 90 meq/Potassium Chloride 15 meq/ Potassium Phosphate 15 mmol/ Magnesium Sulfate 10 meq/Calcium Gluconate 15 meq/ Multivitamins 10 ml/Chromium/ Copper/Manganese/ Seleni/Zn 0.5 ml/ Total Parenteral Nutrition/Amino Acids/Dextrose/ Fat Emulsion Intravenous 1,400 ml @ 58.333 mls/ hr TPN CONT IV Last administered on 07/12/19at 22:17; Start 07/12/19 at 22:00; Stop 07/13/19 at 21:59; Status DC Cefepime HCl (Maxipime) 2 gm Q12HR IVP Last administered on 07/26/19at 20:56; Start 07/13/19 at 09:00; Stop 07/27/19 at 09:58; Status DC Daptomycin 500 mg/ Sodium Chloride 50 ml @ 100 mls/hr Q48H IV Last administered on 07/29/19at 09:57; Start 07/13/19 at 08:30; Stop 07/29/19 at 1 0:07; Status DC Lidocaine HCl (Buffered Lidocaine 1%) 3 ml 1X ONCE INJ Last administered on 07/13/19at 10:27; Start 07/13/19 at 10:30; Stop 07/13/19 at 10:31; Status DC Potassium Phosphate 20 mmol/ Sodium Chloride 106.6667 ml @ 51.667 m... 1X ONCE IV Last administered on 07/13/19at 12:51; Start 07/13/19 at 13:00; Stop 07/13/19 at 15:03; Status DC Sodium Chloride 90 meq/Potassium Chloride 15 meq/ Potassium Phosphate 18 mmol/ Magnesium Sulfate 8 meq/Calcium Gluconate 15 meq/ Multivitamins 10 ml/Chromium/ Copper/Manganese/ Seleni/Zn 0.5 ml/ Total Parenteral Nutrition/Amino Acids/Dextrose/ Fat Emulsion Intravenous 1,400 ml @ 58.333 mls/ hr TPN CONT IV Last administered on 07/13/19at 22:16; Start 07/13/19 at 22:00; Stop 07/14/19 at 21:59; Status DC Potassium Chloride 20 meq/ Bicarbonate Dialysis Soln w/ out KCl 5,010 ml @ 1,000 mls/hr Q5H1M IV Last administered on 07/17/19at 14:54; Start 07/13/19 at 16:00; Stop 07/17/19 at 19:59; Status DC Multi-Ingred Cream/Lotion/Oil/ Oint (Artificial Tears Eye Ointment) 1 ramu PRN Q1HR PRN OU DRY EYE, 2nd choice Last administered on 08/01/19at 08:19; Start 07/13/19 at 17:30; Stop 09/21/19 at 14:39; Status DC Sodium Chloride 90 meq/Potassium Chloride 15 meq/ Potassium Phosphate 18 mmol/ Magnesium Sulfate 8 meq/Calcium Gluconate 15 meq/ Multivitamins 10 ml/Chromium/ Copper/Manganese/ Seleni/Zn 0.5 ml/ Total Parenteral Nutrition/Amino Acids/Dextrose/ Fat Emulsion Intravenous 1,400 ml @ 58.333 mls/ hr TPN CONT IV Last administered on 07/14/19at 22:00; Start 07/14/19 at 22:00; Stop 07/15/19 at 21:59; Status DC Albumin Human 500 ml @ 125 mls/hr 1X ONCE IV ; Start 07/14/19 at 14:15; Stop 07/14/19 at 18:14; Status DC Sodium Chloride 90 meq/Potassium Chloride 15 meq/ Potassium Phosphate 18 mmol/ Magnesium Sulfate 8 meq/Calcium Gluconate 15 meq/ Multivitamins 10 ml/Chromium/ Copper/Manganese/ Seleni/Zn 0.5 ml/ Insulin Human Regular 10 unit/ Total Par enteral Nutrition/Amino Acids/Dextrose/ Fat Emulsion Intravenous 1,400 ml @ 58.333 mls/ hr TPN CONT IV Last administered on 07/15/19at 21:43; Start 07/15/19 at 22:00; Stop 07/16/19 at 21:59; Status DC Lidocaine HCl (Buffered Lidocaine 1%) 3 ml STK-MED ONCE .ROUTE ; Start 07/13/19 at 10:00; Stop 07/15/19 at 13:57; Status DC Midazolam HCl 100 mg/Sodium Chloride 100 ml @ 7 mls/hr CONT PRN IV SEE PROTOCOL Last administered on 07/27/19at 15:35; Start 07/16/19 at 16:00; Stop 09/21/19 at 14:38; Status DC Sodium Chloride 90 meq/Potassium Chloride 15 meq/ Potassium Phosphate 18 mmol/ Magnesium Sulfate 8 meq/Calcium Gluconate 15 meq/ Multivitamins 10 ml/Chromium/ Copper/Manganese/ Seleni/Zn 0.5 ml/ Insulin Human Regular 15 unit/ Total Parenteral Nutrition/Amino Acids/Dextrose/ Fat Emulsion Intravenous 1,400 ml @ 58.333 mls/ hr TPN CONT IV Last administered on 07/16/19at 20:34; Start 07/15 at 22:00; Stop 07/17/19 at 21:59; Status DC Info (Icu Electrolyte Protocol) 1 ea CONT PRN PRN MC PER PROTOCOL; Start 07/16 at 13:15 Sodium Chloride 90 meq/Potassium Chloride 15 meq/ Potassium Phosphate 18 mmol/ Magnesium Sulfate 8 meq/Calcium Gluconate 15 meq/ Multivitamins 10 ml/Chromium/ Copper/Manganese/ Seleni/Zn 0.5 ml/ Insulin Human Regular 15 unit/ Total Parenteral Nutrition/Amino Acids/Dextrose/ Fat Emulsion Intravenous 1,400 ml @ 58.333 mls/ hr TPN CONT IV Last administered on 07/17/19at 22:05; Start 07/17/19 at 22:00; Stop 07/18/19 at 21:59; Status DC Potassium Chloride 15 meq/ Bicarbonate Dialysis Soln w/ out KCl 5,007.5 ml @ 1,000 mls/ hr Q5H1M IV Last administered on 07/20/19at 18:14; Start 07/17/19 at 20:00; Stop 07/21/19 at 13:08; Status DC Potassium Chloride 15 meq/ Bicarbonate Dialysis Soln w/ out KCl 5,007.5 ml @ 1,000 mls/ hr Q5H1M IV Last administered on 07/20/19at 18:14; Start 07/17/19 at 20:00; Stop 07/21/19 at 13:08; Status DC Potassium Chloride 15 meq/ Bicarbonate Dialysis Soln w/ out KCl 5,007.5 ml @ 1,000 mls/ hr Q5H1M IV Last administered on 07/20/19at 18:14; Start 07/17/19 at 20:00; Stop 07/21/19 at 13:08; Status DC Iohexol (Omnipaque 240 Mg/ml) 30 ml 1X ONCE PO Last administered on 07/18/19at 11:30; Start 07/18/19 at 11:30; Stop 07/18/19 at 11:33; Status DC Info (CONTRAST GIVEN -- Rx MONITORING) 1 each PRN DAILY PRN MC SEE COMMENTS; Start 07/18/19 at 11:45; Stop 07/20/19 at 11:44; Status DC Sodium Chloride 90 meq/Potassium Chloride 15 meq/ Potassium Phosphate 18 mmol/ Magnesium Sulfate 8 meq/Calcium Gluconate 15 meq/ Multivitamins 10 ml/Chromium/ Copper/Manganese/ Seleni/Zn 0.5 ml/ Insulin Human Regular 15 unit/ Total Parenteral Nutrition/Amino Acids/Dextrose/ Fat Emulsion Intravenous 1,400 ml @ 58.333 mls/ hr TPN CONT IV Last administered on 07/18/19at 21:47; Start 07/18/19 at 22:00; Stop 07/19/19 at 21:59; Status DC Sodium Chloride 90 meq/Potassium Chloride 15 meq/ Potassium Phosphate 18 mmol/ Magnesium Sulfate 8 meq/Calcium Gluconate 15 meq/ Multivitamins 10 ml/Chromium/ Copper/Manganese/ Seleni/Zn 0.5 ml/ Insulin Human Regular 20 unit/ Total Parenteral Nutrition/Amino Acids/Dextrose/ Fat Emulsion Intravenous 1,400 ml @ 58.333 mls/ hr TPN CONT IV Last administered on 07/19/19at 21:36; Start 07/19/19 at 22:00; Stop 07/20/19 at 21:59; Status DC Alteplase, Recombinant (Cathflo For Central Catheter Clearance) 1 mg 1X ONCE INT CAT Last administered on 07/19/19at 20:03; Start 07/19/19 at 19:30; Stop 07/19/19 at 19:46; Status DC Alteplase, Recombinant (Cathflo For Central Catheter Clearance) 1 mg 1X ONCE INT CAT Last administered on 07/19/19at 22:05; Start 07/19/19 at 22:00; Stop 07/19/19 at 22:01; Status DC Sodium Chloride 90 meq/Potassium Chloride 15 meq/ Potassium Phosphate 18 mmol/ Magnesium Sulfate 8 meq/Calcium Gluconate 15 meq/ Multivitamins 10 ml/Chromium/ Copper/Manganese/ Seleni/Zn 0.5 ml/ Insulin Human Regular 20 unit/ Total Janett ral Nutrition/Amino Acids/Dextrose/ Fat Emulsion Intravenous 1,400 ml @ 58.333 mls/ hr TPN CONT IV Last administered on 07/20/19at 21:30; Start 07/20/19 at 22:00; Stop 07/21/19 at 21:59; Status DC Dexmedetomidine HCl 400 mcg/ Sodium Chloride 100 ml @ 0 mls/hr CONT PRN IV ANXIETY / AGITATION Last administered on 09/17/19at 12:57; Start 07/21/19 at 08:15; Stop 09/17/19 at 18:31; Status DC Sodium Chloride 500 ml @ 500 mls/hr 1X PRN PRN IV ELEVATED BP, SEE COMMENTS; Start 07/21/19 at 08:15; Stop 11/23/19 at 09:08; Status DC Atropine Sulfate (ATROPINE 0.5mg SYRINGE) 0.5 mg PRN Q5MIN PRN IV SEE COMMENTS; Start 07/21/19 at 08:15; Stop 11/21/19 at 09:45; Status DC Furosemide (Lasix) 20 mg 1X ONCE IVP Last administered on 07/21/19at 08:19; Start 07/21/19 at 08:15; Stop 07/21/19 at 08:16; Status DC Lidocaine HCl (Buffered Lidocaine 1%) 3 ml STK-MED ONCE .ROUTE ; Start 07/21/19 at 08:39; Stop 07/21/19 at 08:39; Status DC Lidocaine HCl (Buffered Lidocaine 1%) 6 ml 1X ONCE INJ Last administered on 07/21/19at 09:05; Start 07/21/19 at 09:00; Stop 07/21/19 at 09:06; Status DC Sodium Chloride 90 meq/Potassium Chloride 15 meq/ Potassium Phosphate 18 mmol/ Magnesium Sulfate 8 meq/Calcium Gluconate 15 meq/ Multivitamins 10 ml/Chromium/ Copper/Manganese/ Seleni/Zn 0.5 ml/ Insulin Human Regular 20 unit/ Total Parenteral Nutrition/Amino Acids/Dextrose/ Fat Emulsion Intravenous 1,400 ml @ 58.333 mls/ hr TPN CONT IV Last administered on 07/21/19at 22:45; Start 07/21/19 at 22:00; Stop 07/22/19 at 21:59; Status DC Sodium Chloride 1,000 ml @ 1,000 mls/hr Q1H PRN IV hypotension; Start 07/22/19 at 07:30; Stop 07/22/19 at 13:29; Status DC Albumin Human 200 ml @ 200 mls/hr 1X PRN PRN IV Hypotension Last administered on 07/22/19at 09:36; Start 07/22/19 at 07:30; Stop 07/22/19 at 13:29; Status DC Sodium Chloride (Normal Saline Flush) 10 ml 1X PRN PRN IV AP catheter pack; Start 07/22/19 at 07:30; Stop 07/22/19 at 21:29; Status DC Sodium Chloride (Normal Saline Flush) 10 ml 1X PRN PRN IV CMM OPERATOR catheter pack; Start 07/22/19 at 07:30; Stop 07/23/19 at 07:29; Status DC Sodium Chloride 1,000 ml @ 400 mls/hr Q2H30M PRN IV PATENCY; Start 07/22/19 at 07:30; Stop 07/22/19 at 19:29; Status DC Info (PHARMACY MONITORING -- do not chart) 1 each PRN DAILY PRN MC SEE COMMENTS; Start 07/22/19 at 07:30; Stop 07/22/19 at 13:02; Status DC Info (PHARMACY MONITORING -- do not chart) 1 each PRN DAILY PRN MC SEE COMMENTS; Start 07/22/19 at 07:30; Stop 07/24/19 at 12:45; Status DC Sodium Chloride 90 meq/Potassium Chloride 15 meq/ Potassium Phosphate 10 mmol/ Magnesium Sulfate 8 meq/Calcium Gluconate 15 meq/ Multivitamins 10 ml/Chromium/ Copper/Manganese/ Seleni/Zn 0.5 ml/ Insulin Human Regular 25 unit/ Total Parenteral Nutrition/Amino Acids/Dextrose/ Fat Emulsion Intravenous 1,400 ml @ 58.333 mls/ hr TPN CONT IV Last administered on 07/22/19at 22:19; Start 07/22/19 at 22:00; Stop 07/23/19 at 21:59; Status DC Heparin Sodium (Porcine) (Heparin Sodium) 5,000 unit Q12HR SQ Last administered on 08/14/19at 08:59; Start 07/22/19 at 21:00; Stop 08/14/19 at 10:05; Status DC Ondansetron HCl (Zofran) 4 mg PRN Q6HRS PRN IV NAUSEA/VOMITING; Start 07/25/19 at 07:00; Stop 07/26/19 at 06:59; Status DC Fentanyl Citrate (Fentanyl 2ml Vial) 25 mcg PRN Q5MIN PRN IV MILD PAIN 1-3; Start 07/25/19 at 07:00; Stop 07/26/19 at 06:59; Status DC Fentanyl Citrate (Fentanyl 2ml Vial) 50 mcg PRN Q5MIN PRN IV MODERATE TO SEVERE PAIN; Start 07/25/19 at 07:00; Stop 07/26/19 at 06:59; Status DC Ringer's Solution 1,000 ml @ 30 mls/hr Q24H IV ; Start 07/25/19 at 07:00; Stop 07/25/19 at 18:59; Status DC Lidocaine HCl (Xylocaine-Mpf 1% 2ml Vial) 2 ml PRN 1X PRN ID PRIOR TO IV START; Start 07/25/19 at 07:00; Stop 07/26/19 at 06:59; Status DC Prochlorperazine Edisylate (Compazine) 5 mg PACU PRN PRN IV NAUSEA, MRX1; Start 07/25/19 at 07:00; Stop 07/26/19 at 06:59; Status DC Sodium Chloride 1,000 ml @ 1,000 mls/hr Q1H PRN IV hypotension; Start 07/23/19 at 09:10; Stop 07/23/19 at 15:09; Status DC Albumin Human 200 ml @ 200 mls/hr 1X PRN PRN IV Hypotension Last administered on 07/23/19at 10:10; Start 07/23/19 at 09:15; Stop 07/23/19 at 15:14; Status DC Sodium Chloride 1,000 ml @ 400 mls/hr Q2H30M PRN IV PATENCY; Start 07/23/19 at 09:10; Stop 07/23/19 at 21:09; Status DC Info (PHARMACY MONITORING -- do not chart) 1 each PRN DAILY PRN MC SEE COMMENTS; Start 07/23/19 at 09:15; Stop 07/24/19 at 12:45; Status DC Info (PHARMACY MONITORING -- do not chart) 1 each PRN DAILY PRN MC SEE COMMENTS; Start 07/23/19 at 09:15; Stop 07/24/19 at 12:45; Status DC Sodium Chloride 90 meq/Potassium Chloride 15 meq/ Potassium Phosphate 10 mmol/ Magnesium Sulfate 8 meq/Calcium Gluconate 15 meq/ Multivitamins 10 ml/Chromium/ Copper/Manganese/ Seleni/Zn 0.5 ml/ Insulin Human Regular 25 unit/ Total Parenteral Nutrition/Amino Acids/Dextrose/ Fat Emulsion Intravenous 1,400 ml @ 58.333 mls/ hr TPN CONT IV Last administered on 07/23/19at 22:10; Start 07/23/19 at 22:00; Stop 07/24/19 at 21:59; Status DC Magnesium Sulfate 50 ml @ 25 mls/hr PRN DAILY PRN IV for Mag < 1.7 on am labs Last administered on 10/06/19at 10:57; Start 07/24/19 at 09:15 Sodium Chloride 90 meq/Potassium Chloride 15 meq/ Potassium Phosphate 10 mmol/ Magnesium Sulfate 8 meq/Calcium Gluconate 15 meq/ Multivitamins 10 ml/Chromium/ Copper/Manganese/ Seleni/Zn 0.5 ml/ Insulin Human Regular 25 unit/ Total Parenteral Nutrition/Amino Acids/Dextrose/ Fat Emulsion Intravenous 1,400 ml @ 58.333 mls/ hr TPN CONT IV Last administered on 07/24/19at 21:20; Start 07/24/19 at 22:00; Stop 07/25/19 at 21:59; Status DC Sodium Chloride 1,000 ml @ 1,000 mls/hr Q1H PRN IV hypotension; Start 07/24/19 at 12:23; Stop 07/24/19 at 18:22; Status DC Albumin Human 200 ml @ 200 mls/hr 1X ONCE IV Last administered on 07/24/19at 13:34; Start 07/24/19 at 12:30; Stop 07/24/19 at 13:29; Status DC Diphenhydramine HCl (Benadryl) 25 mg 1X PRN PRN IV ITCHING; Start 07/24/19 at 12:30; Stop 07/25/19 at 12:29; Status DC Diphenhydramine HCl (Benadryl) 25 mg 1X PRN PRN IV ITCHING; Start 07/24/19 at 12:30; Stop 07/25/19 at 12:29; Status DC Info (PHARMACY MONITORING -- do not chart) 1 each PRN DAILY PRN MC SEE COMMENTS; Start 07/24/19 at 12:30; Status Cancel Bupivacaine HCl/ Epinephrine Bitart (Sensorcain-Epi 0.5%-1:[id number] Mpf) 30 ml STK-MED ONCE .ROUTE Last administered on 07/25/19at 11:44; Start 07/25/19 at 11:00; Stop 07/25/19 at 11:01; Status DC Cellulose (Surgicel Fibrillar 1x2) 1 each STK-MED ONCE .ROUTE ; Start 07/25/19 at 11:00; Stop 07/25/19 at 11:01; Status DC Sodium Chloride 90 meq/Potassium Chloride 15 meq/ Potassium Phosphate 10 mmol/ Magnesium Sulfate 12 meq/Calcium Gluconate 15 meq/ Multivitamins 10 ml/Chromium/ Copper/Manganese/ Seleni/Zn 0.5 ml/ Insulin Human Regular 25 unit/ Total Parenteral Nutrition/Amino Acids/Dextrose/ Fat Emulsion Intravenous 1,400 ml @ 58.333 mls/ hr TPN CONT IV Last administered on 07/25/19at 22:24; Start 07/25/19 at 22:00; Stop 07/26/19 at 21:59; Status DC Propofol 20 ml @ As Directed STK-MED ONCE IV ; Start 07/25/19 at 11:07; Stop 07/25/19 at 11:07; Status DC Cellulose (Surgicel Hemostat 4x8) 1 each STK-MED ONCE .ROUTE Last administered on 07/25/19at 11:44; Start 07/25/19 at 11:55; Stop 07/25/19 at 11:56; Status DC Sevoflurane (Ultane) 60 ml STK-MED ONCE IH ; Start 07/25/19 at 12:46; Stop 07/25/19 at 12:46; Status DC Sodium Chloride 1,000 ml @ 1,000 mls/hr Q1H PRN IV hypotension; Start 07/25/19 at 13:51; Stop 07/25/19 at 19:50; Status DC Albumin Human 200 ml @ 200 mls/hr 1X PRN PRN IV Hypotension Last administered on 07/25/19at 14:51; Start 07/25/19 at 14:00; Stop 07/25/19 at 19:59; Status DC Diphenhydramine HCl (Benadryl) 25 mg 1X PRN PRN IV ITCHING; Start 07/25/19 at 14:00; Stop 07/26/19 at 13:59; Status DC Diphenhydramine HCl (Benadryl) 25 mg 1X PRN PRN IV ITCHING; Start 07/25/19 at 14:00; Stop 07/26/19 at 13:59; Status DC Sodium Chloride 1,000 ml @ 400 mls/hr Q2H30M PRN IV PATENCY; Start 07/25/19 at 13:51; Stop 07/26/19 at 01:50; Status DC Info (PHARMACY MONITORING -- do not chart) 1 each PRN DAILY PRN MC SEE COMMENTS; Start 07/25/19 at 14:00; Stop 07/28/19 at 08:16; Status DC Heparin Sodium (Porcine) (Hep Lock Adult) 500 unit STK-MED ONCE IVP ; Start 07/26/19 at 09:29; Stop 07/26/19 at 09:30; Status DC Sodium Chloride 1,000 ml @ 1,000 mls/hr Q1H PRN IV hypotension; Start 07/26/19 at 10:43; Stop 07/26/19 at 16:42; Status DC Sodium Chloride 1,000 ml @ 400 mls/hr Q2H30M PRN IV PATENCY; Start 07/26/19 at 10:43; Stop 07/26/19 at 22:42; Status DC Info (PHARMACY MONITORING -- do not chart) 1 each PRN DAILY PRN MC SEE COMMENTS; Start 07/26/19 at 10:45; Status UNV Info (PHARMACY MONITORING -- do not chart) 1 each PRN DAILY PRN MC SEE COMMENTS; Start 07/26/19 at 10:45; Status UNV Sodium Chloride 90 meq/Potassium Chloride 15 meq/ Magnesium Sulfate 12 meq/Calcium Gluconate 15 meq/ Multivitamins 10 ml/Chromium/ Copper/Manganese/ Seleni/Zn 0.5 ml/ Insulin Human Regular 25 unit/ Total Parenteral Nutrition/Amino Acids/Dextrose/ Fat Emulsion Intravenous 1,400 ml @ 58.333 mls/ hr TPN CONT IV Last administered on 07/26/19at 22:13; Start 07/26/19 at 22:00; Stop 07/27/19 at 21:59; Status DC Sodium Chloride 1,000 ml @ 1,000 mls/hr Q1H PRN IV hypotension; Start 07/27/19 at 07:50; Stop 07/27/19 at 13:49; Status DC Albumin Human 200 ml @ 200 mls/hr 1X ONCE IV ; Start 07/27/19 at 08:00; Stop 07/27/19 at 08:53; Status DC Diphenhydramine HCl (Benadryl) 25 mg 1X PRN PRN IV ITCHING; Start 07/27/19 at 08:00; Stop 07/28/19 at 07:59; Status DC Diphenhydramine HCl (Benadryl) 25 mg 1X PRN PRN IV ITCHING; Start 07/27/19 at 08:00; Stop 07/28/19 at 07:59; Status DC Info (PHARMACY MONITORING -- do not chart) 1 each PRN DAILY PRN MC SEE COMMENTS; Start 07/27/19 at 08:00; Stop 07/28/19 at 08:16; Status DC Albumin Human 50 ml @ 50 mls/hr 1X ONCE IV ; Start 07/27/19 at 08:53; Stop 07/27/19 at 08:56; Status DC Albumin Human 200 ml @ 50 mls/hr PRN 1X PRN IV HYPOTENSION Last administered on 08/02/19at 11:54; Start 07/27/19 at 09:00; Stop 09/08/19 at 11:14; Status DC Meropenem 500 mg/ Sodium Chloride 50 ml @ 100 mls/hr Q12H IV Last administered on 08/16/19at 10:45; Start 07/27/19 at 10:00; Stop 08/16/19 at 12:37; Status DC Sodium Chloride 90 meq/Magnesium Sulfate 12 meq/ Calcium Gluconate 15 meq/ Multivitamins 10 ml/Chromium/ Copper/Manganese/ Seleni/Zn 0.5 ml/ Insulin Human Regular 25 unit/ Total Parenteral Nutrition/Amino Acids/Dextrose/ Fat Emulsion Intravenous 1,400 ml @ 58.333 mls/ hr TPN CONT IV Last administered on 07/27/19at 21:41; Start 07/27/19 at 22:00; Stop 07/28/19 at 21:59; Status DC Sodium Chloride 1,000 ml @ 1,000 mls/hr Q1H PRN IV hypotension; Start 07/28/19 at 07:58; Stop 07/28/19 at 13:57; Status DC Albumin Human 200 ml @ 200 mls/hr 1X PRN PRN IV Hypotension Last administered on 07/28/19at 09:30; Start 07/28/19 at 08:00; Stop 07/28/19 at 13:59; Status DC Sodium Chloride 1,000 ml @ 400 mls/hr Q2H30M PRN IV PATENCY; Start 07/28/19 at 07:58; Stop 07/28/19 at 19:57; Status DC Info (PHARMACY MONITORING -- do not chart) 1 each PRN DAILY PRN MC SEE COMMENTS; Start 07/28/19 at 08:00; Status Cancel Info (PHARMACY MONITORING -- do not chart) 1 each PRN DAILY PRN MC SEE COMMENTS; Start 07/28/19 at 08:15; Status UNV Sodium Chloride 90 meq/Potassium Phosphate 5 mmol/ Magnesium Sulfate 12 meq/Calcium Gluconate 15 meq/ Multivitamins 10 ml/Chromium/ Copper/Manganese/ Seleni/Zn 0.5 ml/ Insulin Human Regular 30 unit/ Total Parenteral Nutrition/Amino Acids/Dextrose/ Fat Emulsion Intravenous 1,400 ml @ 58.333 mls/ hr TPN CONT IV Last administered on 07/28/19at 22:08; Start 07/28/19 at 22:00; Stop 07/29/19 at 21:59; Status DC Linezolid/Dextrose 300 ml @ 300 mls/hr Q12HR IV Last administered on 08/08/19at 20:40; Start 07/29/19 at 11:00; Stop 08/09/19 at 08:10; Status DC Sodium Chloride 90 meq/Potassium Phosphate 15 mmol/ Magnesium Sulfate 12 meq/Calcium Gluconate 15 meq/ Multivitamins 10 ml/Chromium/ Copper/Manganese/ Seleni/Zn 0.5 ml/ Insulin Human Regular 30 unit/ Total Parenteral Nutrition/A jeb Acids/Dextrose/ Fat Emulsion Intravenous 1,400 ml @ 58.333 mls/ hr TPN CONT IV Last administered on 07/29/19at 21:49; Start 07/29/19 at 22:00; Stop 07/30/19 at 21:59; Status DC Sodium Chloride 90 meq/Potassium Phosphate 15 mmol/ Magnesium Sulfate 12 meq/Calcium Gluconate 15 meq/ Multivitamins 10 ml/Chromium/ Copper/Manganese/ Seleni/Zn 0.5 ml/ Insulin Human Regular 40 unit/ Total Parenteral Nutrition/Amino Acids/Dextrose/ Fat Emulsion Intravenous 1,400 ml @ 58.333 mls/ hr TPN CONT IV Last administered on 07/30/19at 21:21; Start 07/30/19 at 22:00; Stop 07/31/19 at 21:59; Status DC Sodium Chloride 1,000 ml @ 1,000 mls/hr Q1H PRN IV hypotension; Start 07/30/19 at 13:26; Stop 07/30/19 at 19:25; Status DC Albumin Human 200 ml @ 200 mls/hr 1X PRN PRN IV Hypotension Last administered on 07/30/19at 15:00; Start 07/30/19 at 13:30; Stop 07/30/19 at 19:29; Status DC Sodium Chloride (Normal Saline Flush) 10 ml 1X PRN PRN IV AP catheter pack; Start 07/30/19 at 13:30; Stop 07/31/19 at 13:29; Status DC Sodium Chloride (Normal Saline Flush) 10 ml 1X PRN PRN IV CMM OPERATOR catheter pack; Start 07/30/19 at 13:30; Stop 07/31/19 at 13:29; Status DC Sodium Chloride 1,000 ml @ 400 mls/hr Q2H30M PRN IV PATENCY; Start 07/30/19 at 13:26; Stop 07/31/19 at 01:25; Status DC Info (PHARMACY MONITORING -- do not chart) 1 each PRN DAILY PRN MC SEE COMMENTS; Start 07/30/19 at 13:30; Stop 07/30/19 at 13:33; Status DC Info (PHARMACY MONITORING -- do not chart) 1 each PRN DAILY PRN MC SEE COMMENTS; Start 07/30/19 at 13:30; Stop 07/30/19 at 13:34; Status DC Sodium Chloride 90 meq/Potassium Phosphate 19 mmol/ Magnesium Sulfate 12 meq/Calcium Gluconate 15 meq/ Multivitamins 10 ml/Chromium/ Copper/Manganese/ Seleni/Zn 0.5 ml/ Insulin Human Regular 40 unit/ Total Parenteral Nutrition/Am tristen Acids/Dextrose/ Fat Emulsion Intravenous 1,400 ml @ 58.333 mls/ hr TPN CONT IV Last administered on 07/31/19at 21:54; Start 07/31/19 at 22:00; Stop 08/01/19 at 21:59; Status DC Sodium Chloride 1,000 ml @ 1,000 mls/hr Q1H PRN IV hypotension; Start 08/01/19 at 09:35; Stop 08/01/19 at 15:34; Status DC Albumin Human 200 ml @ 200 mls/hr 1X PRN PRN IV Hypotension; Start 08/01/19 at 09:45; Stop 08/01/19 at 15:44; Status DC Diphenhydramine HCl (Benadryl) 25 mg 1X PRN PRN IV ITCHING; Start 08/01/19 at 0 9:45; Stop 08/02/19 at 09:44; Status DC Diphenhydramine HCl (Benadryl) 25 mg 1X PRN PRN IV ITCHING; Start 08/01/19 at 09:45; Stop 08/02/19 at 09:44; Status DC Sodium Chloride 1,000 ml @ 400 mls/hr Q2H30M PRN IV PATENCY; Start 08/01/19 at 09:35; Stop 08/01/19 at 21:34; Status DC Info (PHARMACY MONITORING -- do not chart) 1 each PRN DAILY PRN MC SEE COMMENTS; Start 08/01/19 at 09:45; Status Cancel Sodium Chloride 100 meq/Potassium Phosphate 19 mmol/ Magnesium Sulfate 12 meq/Calcium Gluconate 15 meq/ Multivitamins 10 ml/Chromium/ Copper/Manganese/ Seleni/Zn 0.5 ml/ Insulin Human Regular 40 unit/ Potassium Chloride 20 meq/ Total Parenteral Nutrition/Amino Acids/Dextrose/ Fat Emulsion Intravenous 1,400 ml @ 58.333 mls/ hr TPN CONT IV Last administered on 08/01/19at 22:02; Start 08/01/19 at 22:00; Stop 08/02/19 at 21:59; Status DC Furosemide (Lasix) 40 mg 1X ONCE IVP Last administered on 08/01/19at 14:39; Start 08/01/19 at 14:30; Stop 08/01/19 at 14:31; Status DC Metronidazole 100 ml @ 100 mls/hr Q8HRS IV Last administered on 08/09/19at 06:04; Start 08/02/19 at 10:00; Stop 08/09/19 at 08:10; Status DC Sodium Chloride 1,000 ml @ 1,000 mls/hr Q1H PRN IV hypotension; Start 08/02/19 at 08:00; Stop 08/02/19 at 13:59; Status DC Albumin Human 200 ml @ 200 mls/hr 1X PRN PRN IV Hypotension; Start 08/02/19 at 08:00; Stop 08/02/19 at 13:59; Status DC Sodium Chloride 1,000 ml @ 400 mls/hr Q2H30M PRN IV PATENCY; Start 08/02/19 at 08:00; Stop 08/02/19 at 19:59; Status DC Info (PHARMACY MONITORING -- do not chart) 1 each PRN DAILY PRN MC SEE COMMENTS; Start 08/02/19 at 11:30; Status UNV Info (PHARMACY MONITORING -- do not chart) 1 each PRN DAILY PRN MC SEE COMMENTS; Start 08/02/19 at 11:30; Stop 08/04/19 at 12:13; Status DC Sodium Chloride 100 meq/Potassium Phosphate 19 mmol/ Magnesium Sulfate 12 meq/Calcium Gluconate 15 meq/ Multivitamins 10 ml/Chromium/ Copper/Manganese/ Seleni/Zn 0.5 ml/ Insulin Human Regular 40 unit/ Potassium Chloride 20 meq/ Total Parenteral Nutrition/Amino Acids/Dextrose/ Fat Emulsion Intravenous 1,400 ml @ 58.333 mls/ hr TPN CONT IV Last administered on 08/02/19at 21:52; Start 08/02/19 at 22:00; Stop 08/03/19 at 21:59; Status DC Sodium Chloride (Normal Saline Flush) 10 ml QSHIFT PRN IV AFTER MEDS AND BLOOD DRAWS; Start 08/02/19 at 15:00; Stop 08/30/19 at 11:27; Status DC Sodium Chloride (Normal Saline Flush) 10 ml PRN Q5MIN PRN IV AFTER MEDS AND BLOOD DRAWS; Start 08/02/19 at 15:00; Stop 11/19/19 at 10:12; Status DC Sodium Chloride (Normal Saline Flush) 20 ml PRN Q5MIN PRN IV AFTER MEDS AND BLOOD DRAWS; Start 08/02/19 at 15:00 Sodium Chloride 100 meq/Potassium Phosphate 19 mmol/ Magnesium Sulfate 12 meq/C alcium Gluconate 15 meq/ Multivitamins 10 ml/Chromium/ Copper/Manganese/ Seleni/Zn 0.5 ml/ Insulin Human Regular 40 unit/ Potassium Chloride 20 meq/ Total Parenteral Nutrition/Amino Acids/Dextrose/ Fat Emulsion Intravenous 1,400 ml @ 58.333 mls/ hr TPN CONT IV Last administered on 08/03/19at 21:20; Start 08/03/19 at 22:00; Stop 08/04/19 at 21:59; Status DC Lidocaine HCl (Buffered Lidocaine 1%) 3 ml STK-MED ONCE .ROUTE ; Start 08/03/19 at 13:16; Stop 08/03/19 at 13:16; Status DC Lidocaine HCl (Buffered Lidocaine 1%) 6 ml 1X ONCE INJ Last administered on 08/03/19at 13:45; Start 08/03/19 at 13:30; Stop 08/03/19 at 13:31; Status DC Albumin Human 100 ml @ 100 mls/hr 1X ONCE IV Last administered on 08/03/19at 15:41; Start 08/03/19 at 15:00; Stop 08/03/19 at 15:59; Status DC Albumin Human 50 ml @ 50 mls/hr 1X ONCE IV Last administered on 08/03/19at 15:00; Start 08/03/19 at 15:00; Stop 08/03/19 at 15:59; Status DC Info (PHARMACY MONITORING -- do not chart) 1 each PRN DAILY PRN MC SEE COMMENTS; Start 08/04/19 at 11:30; Status Cancel Info (PHARMACY MONITORING -- do not chart) 1 each PRN DAILY PRN MC SEE COMMENTS; Start 08/04/19 at 11:30; Status UNV Sodium Chloride 100 meq/Potassium Phosphate 10 mmol/ Magnesium Sulfate 12 meq/Calcium Gluconate 15 meq/ Multivitamins 10 ml/Chromium/ Copper/Manganese/ Seleni/Zn 0.5 ml/ Insulin Human Regular 35 unit/ Potassium Chloride 20 meq/ Total Parenteral Nutrition/Amino Acids/Dextrose/ Fat Emulsion Intravenous 1,400 ml @ 58.333 mls/ hr TPN CONT IV Last administered on 08/04/19at 22:10; Start 08/04/19 at 22:00; Stop 08/05/19 at 21:59; Status DC Sodium Chloride 100 meq/Potassium Phosphate 5 mmol/ Magnesium Sulfate 12 meq/Calcium Gluconate 15 meq/ Multivitamins 10 ml/Chromium/ Copper/Manganese/ Seleni/Zn 0.5 ml/ Insulin Human Regular 35 unit/ Potassium Chloride 20 meq/ Total Parenteral Nutrition/Amino Acids/Dextrose/ Fat Emulsion Intravenous 1,400 ml @ 58.333 mls/ hr TPN CONT IV Last administered on 08/05/19at 22:59; Start 08/05/19 at 22:00; Stop 08/06/19 at 21:59; Status DC Sodium Chloride 1,000 ml @ 1,000 mls/hr Q1H PRN IV hypotension; Start 08/06/19 at 08:27; Stop 08/06/19 at 14:26; Status DC Albumin Human 200 ml @ 200 mls/hr 1X PRN PRN IV Hypotension Last administered on 08/06/19at 09:18; Start 08/06/19 at 08:30; Stop 08/06/19 at 14:29; Status DC Sodium Chloride 1,000 ml @ 400 mls/hr Q2H30M PRN IV PATENCY; Start 08/06/19 at 08:27; Stop 08/06/19 at 20:26; Status DC Info (PHARMACY MONITORING -- do not chart) 1 each PRN DAILY PRN MC SEE COMMENTS; Start 08/06/19 at 08:30; Status Cancel Info (PHARMACY MONITORING -- do not chart) 1 each PRN DAILY PRN MC SEE COMMENTS; Start 08/06/19 at 08:30; Stop 08/14/19 at 13:10; Status DC Sodium Chloride 100 meq/Potassium Chloride 40 meq/ Magnesium Sulfate 15 meq/Calcium Gluconate 15 meq/ Multivitamins 10 ml/Chromium/ Copper/Manganese/ Seleni/Zn 0.5 ml/ Insulin Human Regular 35 unit/ Total Parenteral Nutr ition/Amino Acids/Dextrose/ Fat Emulsion Intravenous 1,400 ml @ 58.333 mls/ hr TPN CONT IV Last administered on 08/06/19at 22:00; Start 08/06/19 at 22:00; Stop 08/07/19 at 21:59; Status DC Potassium Chloride/Water 100 ml @ 100 mls/hr 1X ONCE IV Last administered on 08/06/19at 17:28; Start 08/06/19 at 14:45; Stop 08/06/19 at 15:44; Status DC Sodium Chloride 100 meq/Potassium Chloride 40 meq/ Magnesium Sulfate 15 meq/Calcium Gluconate 15 meq/ Multivitamins 10 ml/Chromium/ Copper/Manganese/ Seleni/Zn 0.5 ml/ Insulin Human Regular 35 unit/ Total Parenteral Nutrition/Amino Acids/Dextrose/ Fat Emulsion Intravenous 1,400 ml @ 58.333 mls/ hr TPN CONT IV Last administered on 08/07/19at 22:46; Start 08/07/19 at 22:00; Stop 08/08/19 at 21:59; Status DC Sodium Chloride 100 meq/Potassium Chloride 40 meq/ Magnesium Sulfate 20 meq/Calcium Gluconate 15 meq/ Multivitamins 10 ml/Chromium/ Copper/Manganese/ Seleni/Zn 0.5 ml/ Insulin Human Regular 35 unit/ Total Parenteral Nutrition/Amino Acids/Dextrose/ Fat Emulsion Intravenous 1,400 ml @ 58.333 mls/ hr TPN CONT IV Last administered on 08/08/19at 22:31; Start 08/08/19 at 22:00; Stop 08/09/19 at 21:59; Status DC Fentanyl Citrate (Fentanyl 2ml Vial) 50 mcg PRN Q2HR PRN IVP PAIN Last administered on 08/15/19at 13:32; Start 08/08/19 at 21:00; Stop 08/16/19 at 12:53; Status DC Fentanyl Citrate (Fentanyl 2ml Vial) 25 mcg PRN Q2HR PRN IVP PAIN; Start 08/08/19 at 21:00; Stop 08/16/19 at 12:54; Status DC Enoxaparin Sodium (Lovenox 100mg Syringe) 100 mg Q12HR SQ ; Start 08/09/19 at 21:00; Status UNV Amino Acids/ Glycerin/ Electrolytes 1,000 ml @ 75 mls/hr [id number] IV ; Start 08/08/19 at 21:15; Status UNV Sodium Chloride 1,000 ml @ 1,000 mls/hr Q1H PRN IV hypotension; Start 08/09/19 at 07:56; Stop 08/09/19 at 13:55; Status DC Albumin Human 200 ml @ 200 mls/hr 1X PRN PRN IV Hypotension Last administered on 08/09/19at 08:40; Start 08/09/19 at 08:00; Stop 08/09/19 at 13:59; Status DC Sodium Chloride 1,000 ml @ 400 mls/hr Q2H30M PRN IV PATENCY; Start 08/09/19 at 07:56; Stop 08/09/19 at 19:55; Status DC Info (PHARMACY MONITORING -- do not chart) 1 each PRN DAILY PRN MC SEE COMMENTS; Start 08/09/19 at 08:00; Status UNV Info (PHARMACY MONITORING -- do not chart) 1 each PRN DAILY PRN MC SEE COMMENTS; Start 08/09/19 at 08:00; Status UNV Daptomycin 430 mg/ Sodium Chloride 50 ml @ 100 mls/hr Q24H IV Last administered on 08/09/19at 12:35; Start 08/09/19 at 09:00; Stop 08/09/19 at 12:49; Status DC Sodium Chloride 100 meq/Potassium Chloride 40 meq/ Magnesium Sulfate 20 meq/Calcium Gluconate 15 meq/ Multivitamins 10 ml/Chromium/ Copper/Manganese/ Seleni/Zn 0.5 ml/ Insulin Human Regular 35 unit/ Total Parenteral Nutrition/Amino Acids/Dextrose/ Fat Emulsion Intravenous 1,400 ml @ 58.333 mls/ hr TPN CONT IV Last administered on 08/09/19at 21:26; Start 08/09/19 at 22:00; Stop 08/10/19 at 21:59; Status DC Daptomycin 430 mg/ Sodium Chloride 50 ml @ 100 mls/hr Q48H IV ; Start 08/11/19 at 09:00; Stop 08/10/19 at 11:55; Status DC Sodium Chloride 100 meq/Potassium Chloride 40 meq/ Magnesium Sulfate 20 meq/Calcium Gluconate 15 meq/ Multivitamins 10 ml/Chromium/ Copper/Manganese/ Seleni/Zn 0.5 ml/ Insulin Human Regular 35 unit/ Total Parenteral Nutrition/Amino Acids/Dextrose/ Fat Emulsion Intravenous 1,400 ml @ 58.333 mls/ hr TPN CONT IV Last administered on 08/10/19at 22:27; Start 08/10/19 at 22:00; Stop 08/11/19 at 21:59; Status DC Daptomycin 430 mg/ Sodium Chloride 50 ml @ 100 mls/hr Q24H IV Last administered on 08/12/19at 15:07; Start 08/10/19 at 13:00; Stop 08/13/19 at 13:15; Status DC Sodium Chloride 100 meq/Potassium Chloride 40 meq/ Magnesium Sulfate 20 meq/Calcium Gluconate 10 meq/ Multivitamins 10 ml/Chromium/ Copper/Manganese/ Seleni/Zn 0.5 ml/ Insulin Human Regular 35 unit/ Total Parenteral Nutrition/Amino Acids/Dextrose/ Fat Emulsion Intravenous 1,400 ml @ 58.333 mls/ hr TPN CONT IV Last administered on 08/12/19at 00:06; Start 08/11/19 at 22:00; Stop 08/12/19 at 21:59; Status DC Alteplase, Recombinant (Cathflo For Central Catheter Clearance) 1 mg 1X ONCE INT CAT Last administered on 08/12/19at 11:44; Start 08/12/19 at 10:45; Stop 08/12/19 at 10:46; Status DC Ondansetron HCl (Zofran) 4 mg PRN Q6HRS PRN IV NAUSEA/VOMITING; Start 08/15/19 at 07:00; Stop 08/16/19 at 06:59; Status DC Fentanyl Citrate (Fentanyl 2ml Vial) 25 mcg PRN Q5MIN PRN IV MILD PAIN 1-3; Start 08/15/19 at 07:00; Stop 08/16/19 at 06:59; Status DC Fentanyl Citrate (Fentanyl 2ml Vial) 50 mcg PRN Q5MIN PRN IV MODERATE TO SEVERE PAIN Last administered on 08/15/19at 10:17; Start 08/15/19 at 07:00; Stop at 06:59; Status DC Ringer's Solution 1,000 ml @ 30 mls/hr Q24H IV ; Start 08/15/19 at 07:00; Stop 08/15/19 at 18:59; Status DC Lidocaine HCl (Xylocaine-Mpf 1% 2ml Vial) 2 ml PRN 1X PRN ID PRIOR TO IV START; Start 08/15/19 at 07:00; Stop 08/16/19 at 06:59; Status DC Prochlorperazine Edisylate (Compazine) 5 mg PACU PRN PRN IV NAUSEA, MRX1; Start 08/15/19 at 07:00; Stop 08/16/19 at 06:59; Status DC Sodium Acetate 50 meq/Potassium Acetate 55 meq/ Magnesium Sulfate 20 meq/Calcium Gluconate 10 meq/ Multivitamins 10 ml/Chromium/ Copper/Manganese/ Seleni/Zn 0.5 ml/ Insulin Human Regular 35 unit/ Total Parenteral Nutrition/Amino A cids/Dextrose/ Fat Emulsion Intravenous 1,400 ml @ 58.333 mls/ hr TPN CONT IV ; Start 08/12/19 at 22:00; Stop 08/12/19 at 14:15; Status DC Sodium Acetate 50 meq/Potassium Acetate 55 meq/ Magnesium Sulfate 20 meq/Calcium Gluconate 10 meq/ Multivitamins 10 ml/Chromium/ Copper/Manganese/ Seleni/Zn 0.5 ml/ Insulin Human Regular 35 unit/ Total Parenteral Nutrition/Amino Acids/Dextrose/ Fat Emulsion Intravenous 1,800 ml @ 75 mls/hr TPN CONT IV Last administered on 08/12/19at 22:38; Start 08/12/19 at 22:00; Stop 08/13/19 at 21:59; Status DC Sodium Chloride 1,000 ml @ 1,000 mls/hr Q1H PRN IV hypotension; Start 08/12/19 at 15:31; Stop 08/12/19 at 21:30; Status DC Diphenhydramine HCl (Benadryl) 25 mg 1X PRN PRN IV ITCHING; Start 08/12/19 at 15:45; Stop 08/13/19 at 15:44; Status DC Diphenhydramine HCl (Benadryl) 25 mg 1X PRN PRN IV ITCHING; Start 08/12/19 at 15:45; Stop 08/13/19 at 15:44; Status DC Sodium Chloride 1,000 ml @ 400 mls/hr Q2H30M PRN IV PATENCY; Start 08/12/19 at 15:31; Stop 08/13/19 at 03:30; Status DC Info (PHARMACY MONITORING -- do not chart) 1 each PRN DAILY PRN MC SEE COMMENTS; Start 08/12/19 at 15:45; Stop 09/13/19 at 14:14; Status DC Sodium Acetate 50 meq/Potassium Acetate 55 meq/ Magnesium Sulfate 20 meq/Calcium Gluconate 10 meq/ Multivitamins 10 ml/Chromium/ Copper/Manganese/ Seleni/Zn 0.5 ml/ Insulin Human Regular 35 unit/ Total Parenteral Nutrition/Amino Ac ids/Dextrose/ Fat Emulsion Intravenous 1,800 ml @ 75 mls/hr TPN CONT IV Last administered on 08/13/19at 22:03; Start 08/13/19 at 22:00; Stop 08/14/19 at 21:59; Status DC Daptomycin 430 mg/ Sodium Chloride 50 ml @ 100 mls/hr Q24H IV Last administered on 08/18/19at 13:00; Start 08/13/19 at 13:00; Stop 08/18/19 at 20:58; Status DC Heparin Sodium (Porcine) 1000 unit/Sodium Chloride 1,001 ml @ 1,001 mls/hr 1X ONCE IRR ; Start 08/15/19 at 06:00; Stop 08/15/19 at 06:59; Status DC Potassium Acetate 55 meq/Magnesium Sulfate 20 meq/ Calcium Gluconate 10 meq/ Multivitamins 10 ml/Chromium/ Copper/Manganese/ Seleni/Zn 0.5 ml/ Insulin Human Regular 35 unit/ Total Parenteral Nutrition/Amino Acids/Dextrose/ Fat Emulsion Intravenous 1,920 ml @ 80 mls/hr TPN CONT IV Last administered on 08/14/19at 22:10; Start 08/14/19 at 22:00; Stop 08/15/19 at 21:59; Status DC Dexamethasone Sodium Phosphate (Decadron) 4 mg STK-MED ONCE .ROUTE ; Start 08/15/19 at 10:56; Stop 08/15/19 at 10:57; Status DC Ondansetron HCl (Zofran) 4 mg STK-MED ONCE .ROUTE ; Start 08/15/19 at 10:56; Stop 08/15/19 at 10:57; Status DC Rocuronium [place] (Zemuron) 50 mg STK-MED ONCE .ROUTE ; Start 08/15/19 at 10:56; Stop 08/15/19 at 10:57; Status DC Fentanyl Citrate (Fentanyl 2ml Vial) 100 mcg STK-MED ONCE .ROUTE ; Start 08/15/19 at 10:56; Stop 08/15/19 at 10:57; Status DC Bupivacaine HCl/ Epinephrine Bitart (Sensorcain-Epi 0.5%-1:[id number] Mpf) 30 ml STK-MED ONCE .ROUTE Last administered on 08/15/19at 12:01; Start 08/15/19 at 10:58; Stop 08/15/19 at 10:58; Status DC Cellulose (Surgicel Hemostat 2x14) 1 each STK-MED ONCE .ROUTE ; Start 08/15/19 at 10:58; Stop 08/15/19 at 10:59; Status DC Iohexol (Omnipaque 300 Mg/ml) 50 ml STK-MED ONCE .ROUTE ; Start 08/15/19 at 10:58; Stop 08/15/19 at 10:59; Status DC Cellulose (Surgicel Hemostat 4x8) 1 each STK-MED ONCE .ROUTE ; Start 08/15/19 at 10:58; Stop 08/15/19 at 10:59; Status DC Bisacodyl (Dulcolax Supp) 10 mg STK-MED ONCE .ROUTE ; Start 08/15/19 at 10:59; Stop 08/15/19 at 10:59; Status DC Heparin Sodium (Porcine) 1000 unit/Sodium Chloride 1,001 ml @ 1,001 mls/hr 1X ONCE IRR ; Start 08/15/19 at 12:00; Stop 08/15/19 at 12:59; Status DC Propofol 20 ml @ As Directed STK-MED ONCE IV ; Start 08/15/19 at 11:05; Stop 08/15/19 at 11:05; Status DC Sevoflurane (Ultane) 90 ml STK-MED ONCE IH ; Start 08/15/19 at 11:05; Stop 08/15/19 at 11:05; Status DC Sevoflurane (Ultane) 60 ml STK-MED ONCE IH ; Start 08/15/19 at 12:26; Stop 08/15/19 at 12:27; Status DC Propofol 20 ml @ As Directed STK-MED ONCE IV ; Start 08/15/19 at 12:26; Stop 08/15/19 at 12:27; Status DC Phenylephrine HCl (PHENYLEPHRINE in 0.9% NACL PF) 1 mg STK-MED ONCE IV ; Start 08/15/19 at 12:34; Stop 08/15/19 at 12:34; Status DC Heparin Sodium (Porcine) (Heparin Sodium) 5,000 unit Q12HR SQ Last administered on 08/24/19at 20:57; Start 08/15/19 at 21:00; Stop 08/25/19 at 09:59; Status DC Sodium Chloride (Normal Saline Flush) 3 ml QSHIFT PRN IV AFTER MEDS AND BLOOD DRAWS; Start 08/15/19 at 13:45; Status Cancel Naloxone HCl (Narcan) 0.4 mg PRN Q2MIN PRN IV SEE INSTRUCTIONS Last administered on 09/24/19at 15:15; Start 08/15/19 at 13:45; Stop 10/19/19 at 16:00; Status DC Sodium Chloride 1,000 ml @ 25 mls/hr Q24H IV Last administered on 09/13/19at 13:37; Start 08/15/19 at 13:37; Stop 09/16/19 at 13:09; Status DC Naloxone HCl (Narcan) 0.4 mg PRN Q2MIN PRN IV SEE INSTRUCTIONS; Start 08/15/19 at 14:30; Status UNV Sodium Chloride 1,000 ml @ 25 mls/hr Q24H IV ; Start 08/15/19 at 14:30; Status UNV Hydromorphone HCl 30 ml @ 0 mls/hr CONT PRN PRN IV PER PROTOCOL Last a dministered on 08/20/19at 16:08; Start 08/15/19 at 14:30; Stop 08/22/19 at 08:55; Status DC Potassium Acetate 55 meq/Magnesium Sulfate 20 meq/ Calcium Gluconate 10 meq/ Multivitamins 10 ml/Chromium/ Copper/Manganese/ Seleni/Zn 0.5 ml/ Insulin Human Regular 35 unit/ Total Parenteral Nutrition/Amino Acids/Dextrose/ Fat Emulsion Intravenous 1,920 ml @ 80 mls/hr TPN CONT IV Last administered on 08/15/19at 22:01; Start 08/15/19 at 22:00; Stop 08/16/19 at 21:59; Status DC Bumetanide (Bumex) 2 mg [id number] IV Last administered on 08/19/19at 13:50; Start 08/16/19 at 14:00; Stop 08/20/19 at 14:10; Status DC Meropenem 1 gm/ Sodium Chloride 100 ml @ 200 mls/hr Q8HRS IV Last administered on 09/09/19at 05:53; Start 08/16/19 at 14:00; Stop 09/09/19 at 09:31; Status DC Potassium Acetate 55 meq/Magnesium Sulfate 20 meq/ Calcium Gluconate 10 meq/ Multivitamins 10 ml/Chromium/ Copper/Manganese/ Seleni/Zn 0.5 ml/ Insulin Human Regular 35 unit/ Total Parenteral Nutrition/Amino Acids/Dextrose/ Fat Emulsion Intravenous 1,920 ml @ 80 mls/hr TPN CONT IV Last administered on 08/16/19at 22:02; Start 08/16/19 at 22:00; Stop 08/17/19 at 21:59; Status DC Hydromorphone HCl (Dilaudid Standard PHYSICIAN EXTENDER) 12 mg STK-MED ONCE IV ; Start 08/15/19 at 14:35; Stop 08/16/19 at 13:53; Status DC Artificial Tears (Artificial Tears) 1 drop PRN Q15MIN PRN OU DRY EYE Last administered on 10/11/19at 21:17; Start 08/17/19 at 05:30 Hydromorphone HCl (Dilaudid Standard PHYSICIAN EXTENDER) 12 mg STK-MED ONCE IV ; Start 08/16/19 at 12:05; Stop 08/17/19 at 09:15; Status DC Potassium Acetate 65 meq/Magnesium Sulfate 20 meq/ Calcium Gluconate 10 meq/ Multivitamins 10 ml/Chromium/ Copper/Manganese/ Seleni/Zn 0.5 ml/ Insulin Human Regular 30 unit/ Total Parenteral Nutrition/Amino Acids/Dextrose/ Fat Emulsion Intravenous 1,920 ml @ 80 mls/hr TPN CONT IV Last administered on 08/17/19at 22:22; Start 08/17/19 at 22:00; Stop 08/18/19 at 21:59; Status DC Cyclobenzaprine HCl (Flexeril) 10 mg PRN Q6HRS PRN PO MUSCLE SPASMS Last administered on 11/26/19at 20:50; Start 08/18/19 at 10:45 Potassium Acetate 55 meq/Magnesium Sulfate 20 meq/ Calcium Gluconate 10 meq/ Multivitamins 10 ml/Chromium/ Copper/Manganese/ Seleni/Zn 0.5 ml/ Insulin Human Regular 30 unit/ Total Parenteral Nutrition/Amino Acids/Dextrose/ Fat Emulsion Intravenous 1,920 ml @ 80 mls/hr TPN CONT IV Last administered on 08/19/19at 01:00; Start 08/18/19 at 22:00; Stop 08/19/19 at 21:59; Status DC Magnesium Sulfate 50 ml @ 25 mls/hr 1X ONCE IV Last administered on 08/18/19at 17:18; Start 08/18/19 at 12:45; Stop 08/18/19 at 14:44; Status DC Potassium Chloride/Water 100 ml @ 100 mls/hr 1X ONCE IV Last administered on 08/19/19at 11:27; Start 08/19/19 at 12:00; Stop 08/19/19 at 12:59; Status DC Hydromorphone HCl (Dilaudid Standard PHYSICIAN EXTENDER) 12 mg STK-MED ONCE IV ; Start 08/17/19 at 10:50; Stop 08/19/19 at 11:02; Status DC Hydromorphone HCl (Dilaudid Standard PHYSICIAN EXTENDER) 12 mg STK-MED ONCE IV ; Start 08/18/19 at 13:47; Stop 08/19/19 at 11:03; Status DC Potassium Acetate 30 meq/Magnesium Sulfate 20 meq/ Calcium Gluconate 10 meq/ Multivitamins 10 ml/Chromium/ Copper/Manganese/ Seleni/Zn 0.5 ml/ Insulin Human Regular 30 unit/ Potassium Chloride 30 meq/ Total Parenteral Nutrition/Amino Acids/Dextrose/ Fat Emulsion Intravenous 1,920 ml @ 80 mls/hr TPN CONT IV Last administered on 08/19/19at 22:34; Start 08/19/19 at 22:00; Stop 08/20/19 at 21:59; Status DC Potassium Chloride/Water 100 ml @ 100 mls/hr Q1H IV Last administered on 08/19at 13:05; Start 08/20/19 at 07:00; Stop 08/20/19 at 10:59; Status DC Magnesium Sulfate 50 ml @ 25 mls/hr 1X ONCE IV Last administered on 08/20/19at 10:34; Start 08/20/19 at 10:30; Stop 08/20/19 at 12:29; Status DC Potassium Chloride 75 meq/ Magnesium Sulfate 20 meq/Calcium Gluconate 10 meq/ Multivitamins 10 ml/Chromium/ Copper/Manganese/ Seleni/Zn 0.5 ml/ Insulin Human Regular 30 unit/ Total Parenteral Nutrition/Amino Acids/Dextrose/ Fat Emulsion Intravenous 1,920 ml @ 80 mls/hr TPN CONT IV Last administered on 08/20/19at 21:51; Start 08/20/19 at 22:00; Stop 08/21/19 at 22:00; Status DC Potassium Chloride 75 meq/ Magnesium Sulfate 20 meq/Calcium Gluconate 10 meq/ Multivitamins 10 ml/Chromium/ Copper/Manganese/ Seleni/Zn 0.5 ml/ Insulin Human Regular 25 unit/ Total Parenteral Nutrition/Amino Acids/Dextrose/ Fat Emulsion Intravenous 1,920 ml @ 80 mls/hr TPN CONT IV Last administered on 08/21/19at 22:04; Start 08/21/19 at 22:00; Stop 08/22/19 at 21:59; Status DC Hydromorphone HCl (Dilaudid) 0.4 mg PRN Q4HRS PRN IVP PAIN Last administered on 08/22/19at 10:57; Start 08/22/19 at 09:00; Stop 08/22/19 at 18:59; Status DC Micafungin Sodium 100 mg/Dextrose 100 ml @ 100 mls/hr Q24H IV Last administered on 09/13/19at 12:17; Start 08/22/19 at 11:00; Stop 09/14/19 at 09:59; Status DC Daptomycin 485 mg/ Sodium Chloride 50 ml @ 100 mls/hr Q24H IV Last administered on 08/29/19at 13:10; Start 08/22/19 at 11:00; Stop 08/30/19 at 07:44; Status DC Potassium Chloride 75 meq/ Magnesium Sulfate 15 meq/Calcium Gluconate 8 meq/ Multivitamins 10 ml/Chromium/ Copper/Manganese/ Seleni/Zn 0.5 ml/ Insulin Human Regular 25 unit/ Total Parenteral Nutrition/Amino Acids/Dextrose/ Fat Emulsion Intravenous 1,920 ml @ 80 mls/hr TPN CONT IV Last administered on 08/22/19at 23:08; Start 08/22/19 at 22:00; Stop 08/23/19 at 21:59; Status DC Haloperidol Lactate (Haldol Inj) 3 mg 1X ONCE IVP Last administered on 08/22/19at 14:37; Start 08/22/19 at 14:30; Stop 08/22/19 at 14:31; Status DC Hydromorphone HCl (Dilaudid) 1 mg PRN Q4HRS PRN IVP PAIN Last administered on 09/05/19at 06:25; Start 08/22/19 at 19:00; Stop 09/05/19 at 17:10; Status DC Potassium Chloride 75 meq/ Magnesium Sulfate 15 meq/Calcium Gluconate 8 meq/ Multivitamins 10 ml/Chromium/ Copper/Manganese/ Seleni/Zn 0.5 ml/ Insulin Human Regular 20 unit/ Total Parenteral Nutrition/Amino Acids/Dextrose/ Fat Emulsion Intravenous 1,920 ml @ 80 mls/hr TPN CONT IV Last administered on 08/23/19at 22:10; Start 08/23/19 at 22:00; Stop 08/24/19 at 21:59; Status DC Lidocaine HCl (Buffered Lidocaine 1%) 3 ml STK-MED ONCE .ROUTE ; Start 08/24/19 at 11:31; Stop 08/24/19 at 11:31; Status DC Lidocaine HCl (Buffered Lidocaine 1%) 3 ml STK-MED ONCE .ROUTE ; Start 08/24/19 at 12:28; Stop 08/24/19 at 12:29; Status DC Lidocaine HCl (Buffered Lidocaine 1%) 6 ml 1X ONCE INJ Last administered on 08/24/19at 12:53; Start 08/24/19 at 12:45; Stop 08/24/19 at 12:46; Status DC Potassium Chloride 75 meq/ Magnesium Sulfate 15 meq/Calcium Gluconate 8 meq/ Multivitamins 10 ml/Chromium/ Copper/Manganese/ Seleni/Zn 0.5 ml/ Insulin Human Regular 20 unit/ Total Parenteral Nutrition/Amino Acids/Dextrose/ Fat Emulsion Intravenous 1,920 ml @ 80 mls/hr TPN CONT IV Last administered on 08/24/19at 22:00; Start 08/24/19 at 22:00; Stop 08/25/19 at 21:59; Status DC Potassium Chloride 75 meq/ Magnesium Sulfate 15 meq/Calcium Gluconate 8 meq/ Multivitamins 10 ml/Chromium/ Copper/Manganese/ Seleni/Zn 0.5 ml/ Insulin Human Regular 15 unit/ Total Parenteral Nutrition/Amino Acids/Dextrose/ Fat Emulsion Intravenous 1,920 ml @ 80 mls/hr TPN CONT IV Last administered on 08/25/19at 22:28; Start 08/25/19 at 22:00; Stop 08/26/19 at 21:59; Status DC Vecuronium [place] (Norcuron Bolus) 6 mg PRN Q6HRS PRN IV VENT ASYNCHRONY; Start 08/25/19 at 19:15; Stop 08/25/19 at 19:35; Status DC Bumetanide (Bumex) 2 mg 1X ONCE IV Last administered on 08/25/19at 22:09; Start 08/25/19 at 19:45; Stop 08/25/19 at 19:46; Status DC Lidocaine HCl (Buffered Lidocaine 1%) 3 ml STK-MED ONCE .ROUTE ; Start 08/26/19 at 07:59; Stop 08/26/19 at 07:59; Status DC Midazolam HCl (Versed) 5 mg STK-MED ONCE .ROUTE ; Start 08/26/19 at 08:36; Stop 08/26/19 at 08:36; Status DC Fentanyl Citrate (Fentanyl 5ml Vial) 250 mcg STK-MED ONCE .ROUTE ; Start 08/26/19 at 08:36; Stop 08/26/19 at 08:37; Status DC Lidocaine HCl (Buffered Lidocaine 1%) 3 ml 1X ONCE IJ Last administered on 08/26/19at 09:30; Start 08/26/19 at 09:15; Stop 08/26/19 at 09:16; Status DC Midazolam HCl (Versed) 5 mg 1X ONCE IV Last administered on 08/26/19at 09:30; Start 08/26/19 at 09:15; Stop 08/26/19 at 09:16; Status DC Fentanyl Citrate (Fentanyl 5ml Vial) 250 mcg 1X ONCE IV Last administered on 08/26/19at 09:30; Start 08/26/19 at 09:15; Stop 08/26/19 at 09:16; Status DC Bumetanide (Bumex) 2 mg DAILY IV Last administered on 09/05/19at 08:07; Start 08/26/19 at 10:00; Stop 09/05/19 at 17:15; Status DC Potassium Chloride 75 meq/ Magnesium Sulfate 15 meq/ Multivitamins 10 ml/Chromium/ Copper/Manganese/ Seleni/Zn 0.5 ml/ Insulin Human Regular 15 unit/ Total Parenteral Nutrition/Amino Acids/Dextrose/ Fat Emulsion Intravenous 1,920 ml @ 80 mls/hr TPN CONT IV Last administered on 08/26/19at 21:59; Start 08/26/19 at 22:00; Stop 08/27/19 at 21:59; Status DC Metoclopramide HCl (Reglan Vial) 10 mg PRN Q3HRS PRN IVP NAUSEA/VOMITING-3rd choice Last administered on 09/01/19at 04:25; Start 08/27/19 at 16:45 Potassium Chloride 75 meq/ Magnesium Sulfate 15 meq/ Multivitamins 10 ml/Chromium/ Copper/Manganese/ Seleni/Zn 0.5 ml/ Insulin Human Regular 15 unit/ Total Parenteral Nutrition/Amino Acids/Dextrose/ Fat Emulsion Intravenous 1,920 ml @ 80 mls/hr TPN CONT IV Last administered on 08/27/19at 22:41; Start 08/27/19 at 22:00; Stop 08/28/19 at 21:59; Status DC Magnesium Sulfate 50 ml @ 25 mls/hr 1X ONCE IV Last administered on 08/28/19at 10:44; Start 08/28/19 at 09:00; Stop 08/28/19 at 10:59; Status DC Potassium Chloride/Water 100 ml @ 100 mls/hr 1X ONCE IV Last administered on 08/28/19at 09:37; Start 08/28/19 at 09:00; Stop 08/28/19 at 09:59; Status DC Duloxetine HCl (Cymbalta) 30 mg DAILY PO Last administered on 08/29/19at 09:48; Start 08/28/19 at 14:00; Stop 08/31/19 at 10:25; Status DC Potassium Chloride 80 meq/ Magnesium Sulfate 20 meq/ Multivitamins 10 ml/Chromium/ Copper/Manganese/ Seleni/Zn 0.5 ml/ Insulin Human Regular 15 unit/ Total Parenteral Nutrition/Amino Acids/Dextrose/ Fat Emulsion Intravenous 1,920 ml @ 80 mls/hr TPN CONT IV Last administered on 08/28/19at 21:42; Start 08/28/19 at 22:00; Stop 08/29/19 at 21:59; Status DC Potassium Chloride 80 meq/ Magnesium Sulfate 20 meq/ Multivitamins 10 ml/Chromium/ Copper/Manganese/ Seleni/Zn 0.5 ml/ Insulin Human Regular 15 unit/ Total Parenteral Nutrition/Amino Acids/Dextrose/ Fat Emulsion Intravenous 1,920 ml @ 80 mls/hr TPN CONT IV Last administered on 08/29/19at 22:20; Start 08/29/19 at 22:00; Stop 08/30/19 at 21:59; Status DC Lidocaine HCl (Buffered Lidocaine 1%) 3 ml STK-MED ONCE .ROUTE ; Start 08/30/19 at 09:54; Stop 08/30/19 at 09:55; Status DC Hydromorphone HCl (Dilaudid Standard [employer]ICIAN [employer]ER) 12 mg STK-MED ONCE IV ; Start 08/19/19 at 15:50; Stop 08/30/19 at 11:24; Status DC Potassium Chloride 80 meq/ Magnesium Sulfate 20 meq/ Multivitamins 10 ml/Chromium/ Copper/Manganese/ Seleni/Zn 0.5 ml/ Insulin Human Regular 15 unit/ Total Parenteral Nutrition/Amino Acids/Dextrose/ Fat Emulsion Intravenous 1,920 ml @ 80 mls/hr TPN CONT IV Last administered on 08/30/19at 21:40; Start 08/30/19 at 22:00; Stop 08/31/19 at 21:59; Status DC Lidocaine HCl (Buffered Lidocaine 1%) 6 ml 1X ONCE INJ Last administered on 08/30/19at 14:15; Start 08/30/19 at 14:15; Stop 08/30/19 at 14:16; Status DC Potassium Chloride 80 meq/ Magnesium Sulfate 20 meq/ Multivitamins 10 ml/Chromium/ Copper/Manganese/ Seleni/Zn 1 ml/ Insulin Human Regular 15 unit/ Total Parenteral Nutrition/Amino Acids/Dextrose/ Fat Emulsion Intravenous 1,920 ml @ 80 mls/hr TPN CONT IV Last administered on 08/31/19at 22:04; Start 08/31/19 at 22:00; Stop 09/01/19 at 21:59; Status DC Potassium Chloride/Water 100 ml @ 100 mls/hr 1X ONCE IV Last administered on 09/01/19at 11:34; Start 09/01/19 at 11:00; Stop 09/01/19 at 11:59; Status DC Potassium Chloride 90 meq/ Magnesium Sulfate 20 meq/ Multivitamins 10 ml/Chromium/ Copper/Manganese/ Seleni/Zn 1 ml/ Insulin Human Regular 15 unit/ Total Parenteral Nutrition/Amino Acids/Dextrose/ Fat Emulsion Intravenous 1,920 ml @ 80 mls/hr TPN CONT IV Last administered on 09/01/19at 22:57; Start 09/01/19 at 22:00; Stop 09/02/19 at 21:59; Status DC Potassium Chloride 90 meq/ Magnesium Sulfate 20 meq/ Multivitamins 10 ml/Chromium/ Copper/Manganese/ Seleni/Zn 1 ml/ Insulin Human Regular 15 unit/ Total Parenteral Nutrition/Amino Acids/Dextrose/ Fat Emulsion Intravenous 1,920 ml @ 80 mls/hr TPN CONT IV Last administered on 09/02/19at 22:48; Start 09/02/19 at 22:00; Stop 09/03/19 at 21:59; Status DC Potassium Chloride 90 meq/ Magnesium Sulfate 20 meq/ Multivitamins 10 ml/Chromium/ Copper/Manganese/ Seleni/Zn 1 ml/ Insulin Human Regular 15 unit/ Total Parenteral Nutrition/Amino Acids/Dextrose/ Fat Emulsion Intravenous 1,890 ml @ 78.75 mls/ hr TPN CONT IV Last administered on 09/03/19at 22:15; Start 09/03/19 at 22:00; Stop 09/04/19 at 21:59; Status DC Linezolid/Dextrose 300 ml @ 300 mls/hr Q12HR IV Last administered on 09/06/19at 21:08; Start 09/04/19 at 09:00; Stop 09/07/19 at 08:11; Status DC Daptomycin 450 mg/ Sodium Chloride 50 ml @ 100 mls/hr Q24H IV Last administered on 09/07/19at 09:25; Start 09/04/19 at 09:00; Stop 09/08/19 at 08:30; Status DC Potassium Chloride 90 meq/ Magnesium Sulfate 20 meq/ Multivitamins 10 ml/Chromium/ Copper/Manganese/ Seleni/Zn 1 ml/ Insulin Human Regular 15 unit/ Total Parenteral Nutrition/Amino Acids/Dextrose/ Fat Emulsion Intravenous 1,890 ml @ 78.75 mls/ hr TPN CONT IV Last administered on 09/04/19at 21:34; Start 09/04/19 at 22:00; Stop 09/05/19 at 21:59; Status DC Lorazepam (Ativan Inj) 2 mg STK-MED ONCE .ROUTE ; Start 09/04/19 at 14:58; Stop 09/04/19 at 14:58; Status DC Metoprolol Tartrate (Lopressor Vial) 5 mg 1X ONCE IVP Last administered on 09/04/19at 15:31; Start 09/04/19 at 15:15; Stop 09/04/19 at 15:16; Status DC Lorazepam (Ativan Inj) 2 mg 1X ONCE IVP Last administered on 09/04/19at 15:30; Start 09/04/19 at 15:15; Stop 09/04/19 at 15:16; Status DC Enoxaparin Sodium (Lovenox 40mg Syringe) 40 mg Q24H SQ Last administered on 09/23/19at 17:44; Start 09/04/19 at 17:00; Stop 09/25/19 at 06:50; Status DC Lorazepam (Ativan Inj) 1 mg PRN Q4HRS PRN IVP ANXIETY / AGITATION MILD-MOD Last administered on 09/18/19at 15:55; Start 09/04/19 at 19:15; Stop 09/20/19 at 11:45; Status DC Lorazepam (Ativan Inj) 2 mg PRN Q4HRS PRN IVP ANXIETY / AGITATION SEVERE Last administered on 09/19/19at 07:55; Start 09/04/19 at 19:15; Stop 09/20/19 at 11:45; Status DC Fentanyl Citrate (Fentanyl 2ml Vial) 50 mcg PRN Q4HRS PRN IVP SEVERE PAIN Last administered on 10/01/19at 05:15; Start 09/05/19 at 13:15; Stop 10/02/19 at 09:29; Status DC Fentanyl Citrate (Fentanyl 2ml Vial) 25 mcg PRN Q4HRS PRN IVP MODERATE PAIN Last administered on 10/01/19at 00:27; Start 09/05/19 at 13:15; Stop 10/02/19 at 09:30; Status DC Potassium Chloride 90 meq/ Magnesium Sulfate 20 meq/ Multivitamins 10 ml/Chromium/ Copper/Manganese/ Seleni/Zn 1 ml/ Insulin Human Regular 15 unit/ Total Parenteral Nutrition/Amino Acids/Dextrose/ Fat Emulsion Intravenous 1,890 ml @ 78.75 mls/ hr TPN CONT IV Last administered on 09/05/19at 22:18; Start 09/05/19 at 22:00; Stop 09/06/19 at 21:59; Status DC Furosemide (Lasix) 40 mg 1X ONCE IVP Last administered on 09/05/19at 21:51; Start 09/05/19 at 21:45; Stop 09/05/19 at 21:48; Status DC Albumin Human 100 ml @ 100 mls/hr 1X PRN PRN IV SEE COMMENTS; Start 09/06/19 at 01:30; Stop 11/21/19 at 09:52; Status DC Furosemide (Lasix) 40 mg [id number] IVP Last administered on 09/21/19at 08:04; Start 09/06/19 at 14:00; Stop 09/21/19 at 13:07; Status DC Potassium Chloride 90 meq/ Magnesium Sulfate 20 meq/ Multivitamins 10 ml/Chromium/ Copper/Manganese/ Seleni/Zn 1 ml/ Insulin Human Regular 15 unit/ Total Parenteral Nutrition/Amino Acids/Dextrose/ Fat Emulsion Intravenous 1,800 ml @ 75 mls/hr TPN CONT IV Last administered on 09/06/19at 22:31; Start 09/06/19 at 22:00; Stop 09/07/19 at 21:59; Status DC Potassium Chloride 90 meq/ Magnesium Sulfate 20 meq/ Multivitamins 10 ml/Chromium/ Copper/Manganese/ Seleni/Zn 1 ml/ Insulin Human Regular 15 unit/ Total Parenteral Nutrition/Amino Acids/Dextrose/ Fat Emulsion Intravenous 1,800 ml @ 75 mls/hr TPN CONT IV Last administered on 09/07/19at 22:28; Start 09/07/19 at 22:00; Stop 09/08/19 at 21:59; Status DC Potassium Chloride 110 meq/ Magnesium Sulfate 20 meq/ Multivitamins 10 ml/Chromium/ Copper/Manganese/ Seleni/Zn 1 ml/ Insulin Human Regular 15 unit/ Total Parenteral Nutrition/Amino Acids/Dextrose/ Fat Emulsion Intravenous 1,800 ml @ 75 mls/hr TPN CONT IV Last administered on 09/08/19at 22:01; Start 09/08/19 at 22:00; Stop 09/09/19 at 21:59; Status DC Saliva Substitute (Biotene Moisturizing Mouth) 2 spray PRN Q15MIN PRN PO DRY MOUTH; Start 09/08/19 at 11:00 Potassium Chloride 110 meq/ Magnesium Sulfate 20 meq/ Multivitamins 10 ml/Chromium/ Copper/Manganese/ Seleni/Zn 1 ml/ Insulin Human Regular 15 unit/ Total Parenteral Nutrition/Amino Acids/Dextrose/ Fat Emulsion Intravenous 1,800 ml @ 75 mls/hr TPN CONT IV Last administered on 09/09/19at 22:21; Start 09/09/19 at 22:00; Stop 09/10/19 at 21:59; Status DC Potassium Chloride 110 meq/ Magnesium Sulfate 20 meq/ Multivitamins 10 ml/Chromium/ Copper/Manganese/ Seleni/Zn 1 ml/ Insulin Human Regular 15 unit/ Total Parenteral Nutrition/Amino Acids/Dextrose/ Fat Emulsion Intravenous 1,800 ml @ 75 mls/hr TPN CONT IV Last administered on 09/10/19at 22:04; Start 09/10/19 at 22:00; Stop 09/11/19 at 21:59; Status DC Potassium Chloride 110 meq/ Magnesium Sulfate 20 meq/ Multivitamins 10 ml/Chromium/ Copper/Manganese/ Seleni/Zn 1 ml/ Insulin Human Regular 15 unit/ Total Parenteral Nutrition/Amino Acids/Dextrose/ Fat Emulsion Intravenous 1,800 ml @ 75 mls/hr TPN CONT IV Last administered on 09/11/19at 22:48; Start 09/11/19 at 22:00; Stop 09/12/19 at 21:59; Status DC Potassium Chloride 70 meq/ Magnesium Sulfate 20 meq/ Multivitamins 10 ml/Chromium/ Copper/Manganese/ Seleni/Zn 1 ml/ Insulin Human Regular 15 unit/ Total Parenteral Nutrition/Amino Acids/Dextrose/ Fat Emulsion Intravenous 1,800 ml @ 75 mls/hr TPN CONT IV Last administered on 09/12/19at 21:39; Start 09/12/19 at 22:00; Stop 09/13/19 at 21:59; Status DC Meropenem 500 mg/ Sodium Chloride 50 ml @ 100 mls/hr Q6HRS IV Last administered on 09/14/19at 06:02; Start 09/12/19 at 18:00; Stop 09/14/19 at 09:59; Status DC Barium Sulfate (Varibar Thin Liquid Apple) 148 gm 1X ONCE PO ; Start 09/13/19 at 11:45; Stop 09/13/19 at 11:49; Status DC Potassium Chloride 70 meq/ Magnesium Sulfate 20 meq/ Multivitamins 10 ml/Chromium/ Copper/Manganese/ Seleni/Zn 1 ml/ Insulin Human Regular 15 unit/ Total Parenteral Nutrition/Amino Acids/Dextrose/ Fat Emulsion Intravenous 1,800 ml @ 75 mls/hr TPN CONT IV Last administered on 09/13/19at 22:27; Start 09/13/19 at 22:00; Stop 09/14/19 at 21:59; Status DC Piperacillin Sod/ Tazobactam Sod 3.375 gm/Sodium Chloride 50 ml @ 100 mls/hr Q6HRS IV Last administered on 09/22/19at 06:10; Start 09/14/19 at 12:00; Stop 09/22/19 at 07:26; Status DC Potassium Chloride 70 meq/ Magnesium Sulfate 20 meq/ Multivitamins 10 ml/Chromium/ Copper/Manganese/ Seleni/Zn 1 ml/ Insulin Human Regular 15 unit/ Total Parenteral Nutrition/Amino Acids/Dextrose/ Fat Emulsion Intravenous 1,800 ml @ 75 mls/hr TPN CONT IV Last administered on 09/14/19at 22:03; Start 09/14/19 at 22:00; Stop 09/15/19 at 21:59; Status DC Potassium Chloride 70 meq/ Magnesium Sulfate 20 meq/ Multivitamins 10 ml/Chromium/ Copper/Manganese/ Seleni/Zn 1 ml/ Insulin Human Regular 15 unit/ Total Parenteral Nutrition/Amino Acids/Dextrose/ Fat Emulsion Intravenous 1,800 ml @ 75 mls/hr TPN CONT IV Last administered on 09/15/19at 22:33; Start 09/15/19 at 22:00; Stop 09/16/19 at 21:59; Status DC Potassium Chloride 70 meq/ Magnesium Sulfate 20 meq/ Multivitamins 10 ml/Chromium/ Copper/Manganese/ Seleni/Zn 1 ml/ Insulin Human Regular 15 unit/ Total Parenteral Nutrition/Amino Acids/Dextrose/ Fat Emulsion Intravenous 1,800 ml @ 75 mls/hr TPN CONT IV Last administered on 09/16/19at 23:13; Start 09/16/19 at 22:00; Stop 09/17/19 at 21:59; Status DC Potassium Chloride 80 meq/ Magnesium Sulfate 20 meq/ Multivitamins 10 ml/Chromium/ Copper/Manganese/ Seleni/Zn 1 ml/ Insulin Human Regular 15 unit/ Total Parenteral Nutrition/Amino Acids/Dextrose/ Fat Emulsion Intravenous 1,800 ml @ 75 mls/hr TPN CONT IV Last administered on 09/17/19at 22:30; Start 09/17/19 at 22:00; Stop 09/18/19 at 21:59; Status DC Potassium Chloride 80 meq/ Magnesium Sulfate 20 meq/ Multivitamins 10 ml/Chromium/ Copper/Manganese/ Seleni/Zn 1 ml/ Insulin Human Regular 15 unit/ Total Parenteral Nutrition/Amino Acids/Dextrose/ Fat Emulsion Intravenous 1,800 ml @ 75 mls/hr TPN CONT IV Last administered on 09/18/19at 21:54; Start 09/18/19 at 22:00; Stop 09/19/19 at 21:59; Status DC Potassium Chloride/Water 100 ml @ 100 mls/hr 1X ONCE IV Last administered on 09/19/19at 10:15; Start 09/19/19 at 10:00; Stop 09/19/19 at 10:59; Status DC Potassium Chloride 90 meq/ Magnesium Sulfate 20 meq/ Multivitamins 10 ml/Chromium/ Copper/Manganese/ Seleni/Zn 1 ml/ Insulin Human Regular 20 unit/ T otal Parenteral Nutrition/Amino Acids/Dextrose/ Fat Emulsion Intravenous 1,800 ml @ 75 mls/hr TPN CONT IV Last administered on 09/19/19at 22:28; Start 09/19/19 at 22:00; Stop 09/20/19 at 21:59; Status DC Potassium Chloride 90 meq/ Magnesium Sulfate 20 meq/ Multivitamins 10 ml/Chromium/ Copper/Manganese/ Seleni/Zn 1 ml/ Insulin Human Regular 20 unit/ Total Parenteral Nutrition/Amino Acids/Dextrose/ Fat Emulsion Intravenous 1,800 ml @ 75 mls/hr TPN CONT IV Last administered on 09/20/19at 22:08; Start 09/20/19 at 22:00; Stop 09/21/19 at 21:59; Status DC Lorazepam (Ativan Inj) 0.25 mg PRN Q4HRS PRN IVP ANXIETY / AGITATION Last administered on 11/30/19at 09:50; Start 09/21/19 at 07:30 Potassium Chloride 90 meq/ Magnesium Sulfate 20 meq/ Multivitamins 10 ml/Chromiu m/ Copper/Manganese/ Seleni/Zn 1 ml/ Insulin Human Regular 20 unit/ Total Parenteral Nutrition/Amino Acids/Dextrose/ Fat Emulsion Intravenous 1,800 ml @ 75 mls/hr TPN CONT IV Last administered on 09/21/19at 23:13; Start 09/21/19 at 22:00; Stop 09/22/19 at 21:59; Status DC Furosemide (Lasix) 40 mg DAILY IVP Last administered on 09/23/19at 11:14; Start 09/21/19 at 13:30; Stop 09/25/19 at 09:12; Status DC Fluoxetine HCl (PROzac) 20 mg QHS PEG Last administered on 11/30/19at 20:48; Start 09/22/19 at 21:00 Fentanyl (Duragesic 50mcg/ Hr Patch) 1 patch Q72H TD Last administered on 09/22/19at 21:22; Start 09/22/19 at 21:00; Stop 10/01/19 at 12:00; Status DC Potassium Chloride 40 meq/ Potassium Acetate 60 meq/Magnesium Sulfate 10 meq/ Multivitamins 10 ml/Chromium/ Copper/Manganese/ Seleni/Zn 1 ml/ Insulin Human Regular 20 unit/ Total Parenteral Nutrition/Amino Acids/Dextrose/ Fat Emulsion Intravenous 1,800 ml @ 75 mls/hr TPN CONT IV Last administered on 09/23/19at 00:03; Start 09/22/19 at 22:00; Stop 09/23/19 at 21:59; Status DC Potassium Acetate 80 meq/Magnesium Sulfate 5 meq/ Multivitamins 10 ml/Chromium/ Copper/Manganese/ Seleni/Zn 1 ml/ Insulin Human Regular 20 unit/ Total Parenteral Nutrition/Amino Acids/Dextrose/ Fat Emulsion Intravenous 1,920 ml @ 80 mls/hr TPN CONT IV Last administered on 09/23/19at 21:59; Start 09/23/19 at 22:00; Stop 09/24/19 at 21:59; Status DC Potassium Acetate 60 meq/Magnesium Sulfate 5 meq/ Multivitamins 10 ml/Chromium/ Copper/Manganese/ Seleni/Zn 1 ml/ Insulin Human Regular 30 unit/ Total Par enteral Nutrition/Amino Acids/Dextrose/ Fat Emulsion Intravenous 1,920 ml @ 80 mls/hr TPN CONT IV Last administered on 09/24/19at 21:54; Start 09/24/19 at 22:00; Stop 09/25/19 at 21:59; Status DC Norepinephrine Bitartrate 8 mg/ Dextrose 258 ml @ 13.332 mls/ hr CONT PRN IV PER PROTOCOL Last administered on 10/20/19at 09:09; Start 09/25/19 at 06:30; Stop 11/21/19 at 09:45; Status DC Albumin Human 500 ml @ 125 mls/hr 1X ONCE IV Last administered on 09/25/19at 08:10; Start 09/25/19 at 08:15; Stop 09/25/19 at 12:14; Status DC Potassium Acetate 40 meq/Magnesium Sulfate 5 meq/ Multivitamins 10 ml/Chromium/ Copper/Manganese/ Seleni/Zn 1 ml/ Insulin Human Regular 30 unit/ Total Parenteral Nutrition/Amino Acids/Dextrose/ Fat Emulsion Intravenous 1,920 ml @ 80 mls/hr TPN CONT IV Last administered on 09/25/19at 22:23; Start 09/25/19 at 22:00; Stop 09/26/19 at 21:59; Status DC Meropenem 1 gm/ Sodium Chloride 100 ml @ 200 mls/hr Q8HRS IV ; Start 09/25/19 at 14:00; Status Cancel Meropenem 1 gm/ Sodium Chloride 100 ml @ 200 mls/hr Q8HRS IV Last administered on 09/25/19at 11:04; Start 09/25/19 at 10:00; Stop 09/25/19 at 13:00; Status DC Meropenem 1 gm/ Sodium Chloride 100 ml @ 200 mls/hr Q12HR IV Last administered on 10/13/19at 08:27; Start 09/25/19 at 21:00; Stop 10/13/19 at 08:56; Status DC Sodium Chloride 1,000 ml @ 1,000 mls/hr 1X ONCE IV Last administered on 09/25/19at 11:06; Start 09/25/19 at 10:45; Stop 09/25/19 at 11:44; Status DC Micafungin Sodium 100 mg/Dextrose 100 ml @ 100 mls/hr Q24H IV Last administered on 10/12/19at 12:34; Start 09/25/19 at 11:00; Stop 10/13/19 at 08:56; Status DC Daptomycin 410 mg/ Sodium Chloride 50 ml @ 100 mls/hr Q24H IV Last administered on 09/27/19at 13:33; Start 09/25/19 at 14:00; Stop 09/28/19 at 08:30; Status DC Midazolam HCl (Versed) 2 mg STK-MED ONCE .ROUTE ; Start 09/25/19 at 14:47; Stop 09/25/19 at 14:48; Status DC Fentanyl Citrate (Fentanyl 2ml Vial) 100 mcg STK-MED ONCE .ROUTE ; Start 09/25/19 at 14:47; Stop 09/25/19 at 14:48; Status DC Flumazenil (Romazicon) 0.5 mg STK-MED ONCE IV ; Start 09/25/19 at 14:48; Stop 09/25/19 at 14:48; Status DC Naloxone HCl (Narcan) 0.4 mg STK-MED ONCE .ROUTE ; Start 09/25/19 at 14:48; Stop 09/25/19 at 14:48; Status DC Lidocaine HCl (Lidocaine 1% 20ml Vial) 20 ml STK-MED ONCE .ROUTE ; Start 09/25/19 at 14:48; Stop 09/25/19 at 14:48; Status DC Midazolam HCl (Versed) 2 mg 1X ONCE IV Last administered on 09/25/19at 15:28; Start 09/25/19 at 15:00; Stop 09/25/19 at 15:01; Status DC Fentanyl Citrate (Fentanyl 2ml Vial) 100 mcg 1X ONCE IV Last administered on 09/25/19at 15:28; Start 09/25/19 at 15:00; Stop 09/25/19 at 15:01; Status DC Lidocaine HCl (Lidocaine 1% 20ml Vial) 20 ml 1X ONCE INJ Last administered on 09/25/19at 15:30; Start 09/25/19 at 15:00; Stop 09/25/19 at 15:01; Status DC Sodium Chloride 1,000 ml @ 100 mls/hr Q10H IV Last administered on 10/04/19at 07:30; Start 09/25/19 at 20:00; Stop 10/04/19 at 11:26; Status DC Sodium Bicarbonate (Sodium Bicarb Adult 8.4% Syr) 50 meq 1X ONCE IV Last administered on 09/25/19at 21:47; Start 09/25/19 at 22:00; Stop 09/25/19 at 22:01; Status DC Potassium Acetate 40 meq/Magnesium Sulfate 5 meq/ Multivitamins 10 ml/Chromium/ Copper/Manganese/ Seleni/Zn 1 ml/ Insulin Human Regular 30 unit/ Total Parenteral Nutrition/Amino Acids/Dextrose/ Fat Emulsion Intravenous 1,920 ml @ 80 mls/hr TPN CONT IV Last administered on 09/26/19at 22:28; Start 09/26/19 at 22:00; Stop 09/27/19 at 21:59; Status DC Sodium Chloride 500 ml @ 500 mls/hr 1X ONCE IV Last administered on 09/27/19at 06:39; Start 09/27/19 at 06:45; Stop 09/27/19 at 07:44; Status DC Potassium Acetate 40 meq/Magnesium Sulfate 5 meq/ Multivitamins 10 ml/Chromium/ Copper/Manganese/ Seleni/Zn 1 ml/ Insulin Human Regular 30 unit/ Total Parenteral Nutrition/Amino Acids/Dextrose/ Fat Emulsion Intravenous 1,920 ml @ 80 mls/hr TPN CONT IV Last administered on 09/27/19at 22:03; Start 09/27/19 at 22:00; Stop 09/28/19 at 21:59; Status DC Metoprolol Tartrate (Lopressor Vial) 5 mg PRN Q6HRS PRN IVP HYPERTENSION Last administered on 11/29/19at 10:02; Start 09/28/19 at 09:00 Potassium Acetate 40 meq/Magnesium Sulfate 5 meq/ Multivitamins 10 ml/Chromium/ Copper/Manganese/ Seleni/Zn 1 ml/ Insulin Human Regular 30 unit/ Total Parenteral Nutrition/Amino Acids/Dextrose/ Fat Emulsion Intravenous 1,920 ml @ 80 mls/hr TPN CONT IV Last administered on 09/28/19at 21:26; Start 09/28/19 at 22:00; Stop 09/29/19 at 21:59; Status DC Potassium Acetate 40 meq/Magnesium Sulfate 5 meq/ Multivitamins 10 ml/Chromium/ Copper/Manganese/ Seleni/Zn 1 ml/ Insulin Human Regular 30 unit/ Total Parenteral Nutrition/Amino Acids/Dextrose/ Fat Emulsion Intravenous 1,920 ml @ 80 mls/hr TPN CONT IV Last administered on 09/29/19at 23:23; Start 09/29/19 at 22:00; Stop 09/30/19 at 21:59; Status DC Potassium Acetate 40 meq/Magnesium Sulfate 5 meq/ Multivitamins 10 ml/Chromium/ Copper/Manganese/ Seleni/Zn 1 ml/ Insulin Human Regular 30 unit/ Total Parenteral Nutrition/Amino Acids/Dextrose/ Fat Emulsion Intravenous 1,920 ml @ 80 mls/hr TPN CONT IV Last administered on 09/30/19at 21:35; Start 09/30/19 at 22:00; Stop 10/01/19 at 21:59; Status DC Furosemide (Lasix) 20 mg 1X ONCE IVP Last administered on 10/01/19at 06:26; Start 10/01/19 at 06:15; Stop 10/01/19 at 06:16; Status DC Methylprednisolone Sodium Succinate (SOLU-Medrol 125MG VIAL) 125 mg 1X ONCE IV Last administered on 10/01/19at 06:26; Start 10/01/19 at 06:15; Stop 10/01/19 at 06:16; Status DC Albuterol/ Ipratropium (Duoneb) 3 ml Q4HRS NEB Last administered on 12/01/19at 11:42; Start 10/01/19 at 08:00 Fentanyl Citrate 30 ml @ 0 mls/hr CONT PRN IV SEE PROTOCOL Last administered on 10/22/19at 08:03; Start 10/01/19 at 06:00; Stop 10/22/19 at 12:42; Status DC Propofol 100 ml @ 0 mls/hr CONT PRN IV SEE PROTOCOL Last administered on 10/08/19at 23:50; Start 10/01/19 at 06:00; Stop 11/21/19 at 09:45; Status DC Fentanyl Citrate (Fentanyl 2ml Vial) 25 mcg PRN Q1HR PRN IV SEE COMMENTS Last administered on 11/19/19at 23:56; Start 10/01/19 at 06:00; Stop 11/21/19 at 09:45; Status DC Fentanyl Citrate (Fentanyl 2ml Vial) 50 mcg PRN Q1HR PRN IV SEE COMMENTS Last administered on 11/21/19at 09:39; Start 10/01/19 at 06:00; Stop 11/21/19 at 09:45; Status DC Chlorhexidine Gluconate (Peridex) 15 ml BID MM ; Start 10/01/19 at 09:00; Stop 10/01/19 at 07:58; Status DC Potassium Acetate 40 meq/Magnesium Sulfate 5 meq/ Multivitamins 10 ml/Chromium/ Copper/Manganese/ Seleni/Zn 1 ml/ Insulin Human Regular 30 unit/ Total Parenteral Nutrition/Amino Acids/Dextrose/ Fat Emulsion Intravenous 1,920 ml @ 80 mls/hr TPN CONT IV Last administered on 10/01/19at 21:19; Start 10/01/19 at 22:00; Stop 10/02/19 at 21:59; Status DC Acetylcysteine (Mucomyst 20% Resp Treatment) 600 mg BID NEB Last administered on 10/07/19at 09:33; Start 10/01/19 at 21:00; Stop 10/07/19 at 10:39; Status DC Magnesium Sulfate 100 ml @ 25 mls/hr 1X ONCE IV Last administered on 10/01/19at 15:48; Start 10/01/19 at 15:45; Stop 10/01/19 at 19:44; Status DC Potassium Acetate 40 meq/Magnesium Sulfate 5 meq/ Multivitamins 10 ml/Chromium/ Copper/Manganese/ Seleni/Zn 1 ml/ Insulin Human Regular 30 unit/ Total Parenteral Nutrition/Amino Acids/Dextrose/ Fat Emulsion Intravenous 1,920 ml @ 80 mls/hr TPN CONT IV Last administered on 10/02/19at 21:35; Start 10/02/19 at 22:00; Stop 10/03/19 at 21:59; Status DC Potassium Chloride/Water 100 ml @ 100 mls/hr Q1H IV Last administered on 10/03/19at 08:31; Start 10/03/19 at 07:00; Stop 10/03/19 at 08:59; Status DC Potassium Acetate 40 meq/Magnesium Sulfate 5 meq/ Multivitamins 10 ml/Chromium/ Copper/Manganese/ Seleni/Zn 1 ml/ Insulin Human Regular 30 unit/ Total Parenteral Nutrition/Amino Acids/Dextrose/ Fat Emulsion Intravenous 1,920 ml @ 80 mls/hr TPN CONT IV Last administered on 10/03/19at 21:54; Start 10/03/19 at 22:00; Stop 10/04/19 at 19:34; Status DC Lidocaine HCl (Buffered Lidocaine 1%) 3 ml STK-MED ONCE .ROUTE ; Start 10/03/19 at 12:14; Stop 10/03/19 at 12:14; Status DC Lidocaine HCl (Buffered Lidocaine 1%) 3 ml 1X ONCE IJ Last administered on 10/03/19at 13:11; Start 10/03/19 at 13:00; Stop 10/03/19 at 13:01; Status DC Magnesium Sulfate 50 ml @ 25 mls/hr 1X ONCE IV ; Start 10/04/19 at 08:15; Stop 10/04/19 at 10:14; Status DC Potassium Acetate 40 meq/Magnesium Sulfate 10 meq/ Multivitamins 10 ml/Chromium/ Copper/Manganese/ Seleni/Zn 1 ml/ Insulin Human Regular 20 unit/ Total Parenteral Nutrition/Amino Acids/Dextrose/ Fat Emulsion Intravenous 1,920 ml @ 80 mls/hr TPN CONT IV Last administered on 10/04/19at 21:32; Start 10/04/19 at 22:00; Stop 10/05/19 at 21:59; Status DC Potassium Chloride/Water 100 ml @ 100 mls/hr Q1H IV Last administered on 10/05/19at 09:12; Start 10/05/19 at 08:00; Stop 10/05/19 at 09:59; Status DC Alteplase, Recombinant (Cathflo For Central Catheter Clearance) 4 mg 1X ONCE INT CAT ; Start 10/05/19 at 09:15; Stop 10/05/19 at 09:16; Status UNV Alteplase, Recombinant (Cathflo For Central Catheter Clearance) 4 mg 1X ONCE INT CAT ; Start 10/05/19 at 09:15; Stop 10/05/19 at 09:16; Status UNV Alteplase, Recombinant (Cathflo For Central Catheter Clearance) 4 mg 1X ONCE INT CAT ; Start 10/05/19 at 09:15; Stop 10/05/19 at 09:16; Status UNV Alteplase, Recombinant 4 mg/ Sodium Chloride 20 ml @ 20 mls/hr 1X ONCE IV Last administered on 10/05/19at 10:10; Start 10/05/19 at 10:00; Stop 10/05/19 at 10:59; Status DC Alteplase, Recombinant 4 mg/ Sodium Chloride 20 ml @ 20 mls/hr 1X ONCE IV Last administered on 10/05/19at 10:09; Start 10/05/19 at 10:00; Stop 10/05/19 at 10:59; Status DC Alteplase, Recombinant 4 mg/ Sodium Chloride 20 ml @ 20 mls/hr 1X ONCE IV Last administered on 10/05/19at 10:09; Start 10/05/19 at 10:00; Stop 10/05/19 at 10:59; Status DC Potassium Acetate 60 meq/Magnesium Sulfate 10 meq/ Multivitamins 10 ml/Chromium/ Copper/Manganese/ Seleni/Zn 1 ml/ Insulin Human Regular 20 unit/ Total Parent eral Nutrition/Amino Acids/Dextrose/ Fat Emulsion Intravenous 1,920 ml @ 80 mls/hr TPN CONT IV Last administered on 10/05/19at 21:55; Start 10/05/19 at 22:00; Stop 10/06/19 at 21:59; Status DC Albumin Human 500 ml @ 125 mls/hr 1X ONCE IV Last administered on 10/06/19at 12:01; Start 10/06/19 at 11:15; Stop 10/06/19 at 15:14; Status DC Sodium Chloride 500 ml @ 500 mls/hr 1X ONCE IV Last administered on 10/06/19at 13:50; Start 10/06/19 at 11:15; Stop 10/06/19 at 12:14; Status DC Potassium Acetate 60 meq/Magnesium Sulfate 14 meq/ Multivitamins 10 ml/Chromium/ Copper/Manganese/ Seleni/Zn 1 ml/ Insulin Human Regular 20 unit/ Total Parenteral Nutrition/Amino Acids/Dextrose/ Fat Emulsion Intravenous 1,920 ml @ 80 mls/hr TPN CONT IV Last administered on 10/06/19at 22:26; Start 10/06/19 at 22:00; Stop 10/07/19 at 21:59; Status DC Ciprofloxacin/ Dextrose 200 ml @ 200 mls/hr Q12HR IV Last administered on 10/13/19at 08:27; Start 10/06/19 at 21:00; Stop 10/13/19 at 08:56; Status DC Albumin Human 250 ml @ 62.5 mls/hr 1X ONCE IV Last administered on 10/07/19at 11:09; Start 10/07/19 at 11:00; Stop 10/07/19 at 14:59; Status DC Furosemide (Lasix) 20 mg 1X ONCE IVP Last administered on 10/07/19at 14:52; Start 10/07/19 at 10:45; Stop 10/07/19 at 10:49; Status DC Potassium Acetate 60 meq/Magnesium Sulfate 14 meq/ Multivitamins 10 ml/Chromium/ Copper/Manganese/ Seleni/Zn 1 ml/ Insulin Human Regular 15 unit/ Total Parenteral Nutrition/Amino Acids/Dextrose/ Fat Emulsion Intravenous 1,920 ml @ 80 mls/hr TPN CONT IV Last administered on 10/07/19at 22:08; Start 10/07/19 at 22:00; Stop 10/08/19 at 21:59; Status DC Potassium Acetate 60 meq/Magnesium Sulfate 14 meq/ Multivitamins 10 ml/Chromium/ Copper/Manganese/ Seleni/Zn 1 ml/ Insulin Human Regular 15 unit/ Total Paren teral Nutrition/Amino Acids/Dextrose/ Fat Emulsion Intravenous 1,920 ml @ 80 mls/hr TPN CONT IV Last administered on 10/08/19at 22:12; Start 10/08/19 at 22:00; Stop 10/09/19 at 21:59; Status DC Potassium Acetate 60 meq/Magnesium Sulfate 14 meq/ Multivitamins 10 ml/Chromium/ Copper/Manganese/ Seleni/Zn 1 ml/ Insulin Human Regular 15 unit/ Total Parenteral Nutrition/Amino Acids/Dextrose/ Fat Emulsion Intravenous 1,920 ml @ 80 mls/hr TPN CONT IV Last administered on 10/09/19at 22:22; Start 10/09/19 at 22:00; Stop 10/10/19 at 21:59; Status DC Furosemide (Lasix) 20 mg 1X ONCE IVP Last administered on 10/10/19at 11:07; Start 10/10/19 at 10:30; Stop 10/10/19 at 10:34; Status DC Potassium Acetate 60 meq/Magnesium Sulfate 14 meq/ Multivitamins 10 ml/Chromium/ Copper/Manganese/ Seleni/Zn 1 ml/ Insulin Human Regular 15 unit/ Sodium Chloride 20 meq/Total Parenteral Nutrition/Amino Acids/Dextrose/ Fat Emulsion Intravenous 1,920 ml @ 80 mls/hr TPN CONT IV Last administered on 10/10/19at 21:54; Start 10/10/19 at 22:00; Stop 10/11/19 at 21:59; Status DC Potassium Acetate 30 meq/Magnesium Sulfate 14 meq/ Multivitamins 10 ml/Chromium/ Copper/Manganese/ Seleni/Zn 1 ml/ Insulin Human Regular 15 unit/ Sodium Chloride 20 meq/Potassium Chloride 30 meq/ Total Parenteral Nutrition/Amino Acids/Dextrose/ Fat Emulsion Intravenous 1,920 ml @ 80 mls/hr TPN CONT IV Last administered on 10/11/19at 21:46; Start 10/11/19 at 22:00; Stop 10/12/19 at 21:59; Status DC Sodium Chloride 80 meq/Potassium Chloride 30 meq/ Potassium Acetate 30 meq/Magnesium Sulfate 14 meq/ Multivitamins 10 ml/Chromium/ Copper/Manganese/ Seleni/Zn 1 ml/ Insulin Human Regular 15 unit/ Total Parenteral Nutrition/Amino Acids/Dextrose/ Fat Emulsion Intravenous 1,920 ml @ 80 mls/hr TPN CONT IV Last administered on 10/12/19at 22:33; Start 10/12/19 at 22:00; Stop 10/13/19 at 21:59; Status DC Furosemide (Lasix) 40 mg 1X ONCE IVP Last administered on 10/12/19at 16:27; Start 10/12/19 at 15:30; Stop 10/12/19 at 15:33; Status DC Albumin Human 250 ml @ 62.5 mls/hr 1X ONCE IV Last administered on 10/12/19at 16:27; Start 10/12/19 at 15:30; Stop 10/12/19 at 19:29; Status DC Sodium Chloride 80 meq/Potassium Chloride 30 meq/ Potassium Acetate 30 meq/Magnesium Sulfate 14 meq/ Multivitamins 10 ml/Chromium/ Copper/Manganese/ Seleni/Zn 1 ml/ Insulin Human Regular 15 unit/ Total Parenteral Nutrition/Amino Acids/Dextrose/ Fat Emulsion Intravenous 1,920 ml @ 80 mls/hr TPN CONT IV Last administered on 10/13/19at 22:25; Start 10/13/19 at 22:00; Stop 10/14/19 at 21:59; Status DC Sodium Chloride 80 meq/Potassium Chloride 30 meq/ Potassium Acetate 30 meq/Magnesium Sulfate 14 meq/ Multivitamins 10 ml/Chromium/ Copper/Manganese/ Seleni/Zn 1 ml/ Insulin Human Regular 15 unit/ Total Parenteral Nutrition/Amino Acids/Dextrose/ Fat Emulsion Intravenous 1,920 ml @ 80 mls/hr TPN CONT IV Last administered on 10/14/19at 21:32; Start 10/14/19 at 22:00; Stop 10/15/19 at 21:59; Status DC Sodium Chloride 80 meq/Potassium Chloride 30 meq/ Potassium Acetate 30 meq/Magnesium Sulfate 14 meq/ Multivitamins 10 ml/Chromium/ Copper/Manganese/ Seleni/Zn 1 ml/ Insulin Human Regular 15 unit/ Total Parenteral Nutrition/Amino Acids/Dextrose/ Fat Emulsion Intravenous 1,920 ml @ 80 mls/hr TPN CONT IV Last administered on 10/15/19at 21:53; Start 10/15/19 at 22:00; Stop 10/16/19 at 21:59; Status DC Acetylcysteine (Mucomyst 20% Resp Treatment) 600 mg RTBID NEB Last administered on 12/01/19at 08:00; Start 10/15/19 at 12:00 Sodium Chloride 80 meq/Potassium Chloride 30 meq/ Potassium Acetate 30 meq/Magnesium Sulfate 14 meq/ Multivitamins 10 ml/Chromium/ Copper/Manganese/ Seleni/Zn 1 ml/ Insulin Human Regular 15 unit/ Total Parenteral Nutrition/Amino Acids/Dextrose/ Fat Emulsion Intravenous 1,920 ml @ 80 mls/hr TPN CONT IV Last administered on 10/16/19at 22:06; Start 10/16/19 at 22:00; Stop 10/17/19 at 21:59; Status DC Meropenem 500 mg/ Sodium Chloride 50 ml @ 100 mls/hr Q6HRS IV Last a dministered on 11/08/19at 06:15; Start 10/16/19 at 18:00; Stop 11/08/19 at 08:23; Status DC Daptomycin 500 mg/ Sodium Chloride 50 ml @ 100 mls/hr Q24H IV Last administered on 10/24/19at 21:47; Start 10/16/19 at 19:00; Stop 10/25/19 at 08:13; Status DC Sodium Chloride 80 meq/Potassium Chloride 30 meq/ Potassium Acetate 30 meq/Magnesium Sulfate 14 meq/ Multivitamins 10 ml/Chromium/ Copper/Manganese/ Seleni/Zn 1 ml/ Insulin Human Regular 15 unit/ Total Parenteral Nutrition/Amino Acids/Dextrose/ Fat Emulsion Intravenous 1,920 ml @ 80 mls/hr TPN CONT IV Last administered on 10/17/19at 22:09; Start 10/17/19 at 22:00; Stop 10/18/19 at 21:59; Status DC Heparin Sodium (Porcine) 1000 unit/Sodium Chloride 1,001 ml @ 1,001 mls/hr 1X ONCE IRR ; Start 10/18/19 at 06:00; Stop 10/18/19 at 06:59; Status DC Propofol (Diprivan) 200 mg STK-MED ONCE IV ; Start 10/18/19 at 07:44; Stop 10/18/19 at 07:44; Status DC Lidocaine HCl (Lidocaine Pf 2% Vial) 5 ml STK-MED ONCE .ROUTE ; Start 10/18/19 at 07:44; Stop 10/18/19 at 07:44; Status DC Fentanyl Citrate (Fentanyl 2ml Vial) 100 mcg STK-MED ONCE .ROUTE ; Start 10/18/19 at 07:44; Stop 10/18/19 at 07:44; Status DC Rocuronium [place] (Zemuron) 100 mg STK-MED ONCE .ROUTE ; Start 10/18/19 at 07:44; Stop 10/18/19 at 07:44; Status DC Micafungin Sodium 100 mg/Dextrose 100 ml @ 100 mls/hr Q24H IV Last administered on 11/22/19at 09:30; Start 10/18/19 at 08:30; Stop 11/23/19 at 08:20; Status DC Bupivacaine HCl/ Epinephrine Bitart (Sensorcain-Epi 0.5%-1:[id number] Mpf) 30 ml STK-MED ONCE .ROUTE ; Start 10/18/19 at 08:34; Stop 10/18/19 at 08:35; Status DC Iohexol (Omnipaque 300 Mg/ml) 50 ml STK-MED ONCE .ROUTE Last administered on 10/18/19at 13:30; Start 10/18/19 at 08:35; Stop 10/18/19 at 08:35; Status DC Sodium Chloride 80 meq/Potassium Chloride 30 meq/ Potassium Acetate 30 meq/Magnesium Sulfate 14 meq/ Multivitamins 10 ml/Chromium/ Copper/Manganese/ Seleni/Zn 1 ml/ Insulin Human Regular 15 unit/ Total Parenteral Nutrition/Amino Acids/Dextrose/ Fat Emulsion Intravenous 1,920 ml @ 80 mls/hr TPN CONT IV Last administered on 10/19/19at 01:22; Start 10/18/19 at 22:00; Stop 10/19/19 at 21:59; Status DC Phenylephrine HCl (Brayden-Synephrine Inj) 10 mg STK-MED ONCE .ROUTE ; Start 10/18/19 at 10:15; Stop 10/18/19 at 10:15; Status DC Desflurane (Suprane) 90 ml STK-MED ONCE IH ; Start 10/18/19 at 10:18; Stop 10/18/19 at 10:19; Status DC Albumin Human 500 ml @ As Directed STK-MED ONCE IV ; Start 10/18/19 at 11:06; Stop 10/18/19 at 11:06; Status DC Vasopressin (Vasostrict) 20 unit STK-MED ONCE .ROUTE ; Start 10/18/19 at 12:23; Stop 10/18/19 at 12:23; Status DC Phenylephrine HCl (Brayden-Synephrine Inj) 10 mg STK-MED ONCE .ROUTE ; Start 10/18/19 at 13:33; Stop 10/18/19 at 13:33; Status DC Phenylephrine HCl (Brayden-Synephrine Inj) 10 mg STK-MED ONCE .ROUTE ; Start 10/18/19 at 13:33; Stop 10/18/19 at 13:33; Status DC Ondansetron HCl (Zofran) 4 mg STK-MED ONCE .ROUTE ; Start 10/18/19 at 13:33; Stop 10/18/19 at 13:33; Status DC Enoxaparin Sodium (Lovenox 40mg Syringe) 40 mg Q24H SQ Last administered on 11/30/19at 08:28; Start 10/19/19 at 08:00 Sodium Chloride (Normal Saline Flush) 3 ml QSHIFT PRN IV AFTER MEDS AND BLOOD DRAWS; Start 10/18/19 at 14:45; Stop 11/21/19 at 09:45; Status DC Naloxone HCl (Narcan) 0.4 mg PRN Q2MIN PRN IV SEE INSTRUCTIONS; Start 10/18/19 at 14:45; Stop 11/21/19 at 09:45; Status DC Sodium Chloride 1,000 ml @ 25 mls/hr Q24H IV Last administered on 11/20/19at 20:55; Start 10/18/19 at 14:33; Stop 11/21/19 at 09:45; Status DC Morphine Sulfate (Morphine Sulfate) 1 mg PRN Q1HR PRN IV PAIN Last administered on 11/12/19at 18:28; Start 10/18/19 at 14:45; Stop 11/21/19 at 09:45; Status DC Midazolam HCl 100 mg/Sodium Chloride 100 ml @ 1 mls/hr CONT PRN IV SEE I/O RECORD Last administered on 10/21/19at 18:48; Start 10/18/19 at 14:45; Stop 11/21/19 at 09:45; Status DC Phenylephrine HCl (PHENYLEPHRINE in 0.9% NACL PF) 1 mg STK-MED ONCE IV ; Start 10/18/19 at 14:44; Stop 10/18/19 at 14:45; Status DC Ephedrine Sulfate (ePHEDrine PF IN SALINE SYRINGE) 50 mg STK-MED ONCE IV ; Start 10/18/19 at 14:45; Stop 10/18/19 at 14:45; Status DC Vasopressin 20 unit/Dextrose 101 ml @ 12 mls/hr CONT PRN IV SEE I/O RECORD Last administered on 10/25/19at 04:17; Start 10/18/19 at 15:30; Stop 11/21/19 at 09:45; Status DC Sodium Chloride 1,000 ml @ 1,000 mls/hr 1X ONCE IV Last administered on 10/18/19at 15:42; Start 10/18/19 at 15:45; Stop 10/18/19 at 16:44; Status DC Albumin Human 500 ml @ 125 mls/hr 1X ONCE IV ; Start 10/18/19 at 16:00; Stop 10/18/19 at 19:59; Status DC Albumin Human 500 ml @ 125 mls/hr PRN Q1HR PRN IV PER PROTOCOL; Start 10/18/19 at 15:45; Stop 11/21/19 at 09:52; Status DC Magnesium Sulfate 50 ml @ 25 mls/hr 1X ONCE IV Last administered on 10/18/19at 17:02; Start 10/18/19 at 16:30; Stop 10/18/19 at 18:29; Status DC Sodium Bicarbonate (Sodium Bicarb Adult 8.4% Syr) 50 meq STK-MED ONCE .ROUTE ; Start 10/18/19 at 16:20; Stop 10/18/19 at 16:20; Status DC Sodium Bicarbonate (Sodium Bicarb Adult 8.4% Syr) 100 meq 1X ONCE IV Last administered on 10/18/19at 17:07; Start 10/18/19 at 16:30; Stop 10/18/19 at 16:3 1; Status DC Sodium Bicarbonate 150 meq/Dextrose 1,150 ml @ 75 mls/hr 1X ONCE IV Last administered on 10/18/19at 20:02; Start 10/18/19 at 16:30; Stop 10/19/19 at 07:49; Status DC Sodium Chloride 80 meq/Potassium Chloride 30 meq/ Potassium Acetate 30 meq /Magnesium Sulfate 14 meq/ Multivitamins 10 ml/Chromium/ Copper/Manganese/ Seleni/Zn 1 ml/ Insulin Human Regular 15 unit/ Total Parenteral Nutrition/Amino Acids/Dextrose/ Fat Emulsion Intravenous 1,920 ml @ 80 mls/hr TPN CONT IV Last administered on 10/19/19at 23:05; Start 10/19/19 at 22:00; Stop 10/20/19 at 21:59; Status DC Sodium Chloride 100 meq/Potassium Chloride 30 meq/ Potassium Acetate 30 meq/Magnesium Sulfate 12 meq/ Multivitamins 10 ml/Chromium/ Copper/Manganese/ Seleni/Zn 1 ml/ Insulin Human Regular 15 unit/ Total Parenteral Nutrition/Amino Acids/Dextrose/ Fat Emulsion Intravenous 1,920 ml @ 80 mls/hr TPN CONT IV Last administered on 10/20/19at 21:52; Start 10/20/19 at 22:00; Stop 10/21/19 at 21:59; Status DC Sodium Chloride 100 meq/Potassium Chloride 30 meq/ Potassium Acetate 30 meq/Magnesium Sulfate 12 meq/ Multivitamins 10 ml/Chromium/ Copper/Manganese/ Seleni/Zn 1 ml/ Insulin Human Regular 15 unit/ Total Parenteral Nutrition/Amino Acids/Dextrose/ Fat Emulsion Intravenous 1,920 ml @ 80 mls/hr TPN CONT IV Last administered on 10/21/19at 21:46; Start 10/21/19 at 22:00; Stop 10/22/19 at 21:59; Status DC Sodium Chloride 100 meq/Potassium Chloride 30 meq/ Potassium Acetate 30 meq/Magnesium Sulfate 12 meq/ Multivitamins 10 ml/Chromium/ Copper/Manganese/ Seleni/Zn 1 ml/ Insulin Human Regular 15 unit/ Total Parenteral Nutrition/Amino Acids/Dextrose/ Fat Emulsion Intravenous 1,800 ml @ 75 mls/hr TPN CONT IV Last administered on 10/22/19at 22:04; Start 10/22/19 at 22:00; Stop 10/23/19 at 21:59; Status DC Fentanyl Citrate 55 ml @ 0 mls/hr CONT PRN IV SEE COMMENTS Last administered on 10/24/19at 23:55; Start 10/22/19 at 13:00; Stop 10/27/19 at 17:28; Status DC Sodium Chloride 100 meq/Potassium Chloride 30 meq/ Potassium Acetate 30 meq/Magnesium Sulfate 12 meq/ Multivitamins 10 ml/Chromium/ Copper/Manganese/ Seleni/Zn 1 ml/ Insulin Human Regular 15 unit/ Total Parenteral Nutrition/Amino Acids/Dextrose/ Fat Emulsion Intravenous 1,680 ml @ 70 mls/hr TPN CONT IV Last administered on 10/23/19at 21:23; Start 10/23/19 at 22:00; Stop 10/24/19 at 21:59; Status DC Sodium Chloride 110 meq/Potassium Chloride 30 meq/ Potassium Acetate 30 meq/Magnesium Sulfate 15 meq/ Multivitamins 10 ml/Chromium/ Copper/Manganese/ Seleni/Zn 1 ml/ Insulin Human Regular 15 unit/ Total Parenteral Nutrition/Amino Acids/Dextrose/ Fat Emulsion Intravenous 1,680 ml @ 70 mls/hr TPN CONT IV Last administered on 10/24/19at 21:48; Start 10/24/19 at 22:00; Stop 10/25/19 at 21:59; Status DC Sodium Chloride 110 meq/Potassium Chloride 30 meq/ Potassium Acetate 30 meq/Magnesium Sulfate 15 meq/ Multivitamins 10 ml/Chromium/ Copper/Manganese/ Seleni/Zn 1 ml/ Insulin Human Regular 15 unit/ Total Parenteral Nutrition/Amino Acids/Dextrose/ Fat Emulsion Intravenous 1,680 ml @ 70 mls/hr TPN CONT IV Last administered on 10/25/19at 21:33; Start 10/25/19 at 22:00; Stop 10/26/19 at 21:59; Status DC Sodium Chloride 110 meq/Potassium Chloride 30 meq/ Potassium Acetate 30 meq/Magnesium Sulfate 15 meq/ Multivitamins 10 ml/Chromium/ Copper/Manganese/ Seleni/Zn 1 ml/ Insulin Human Regular 15 unit/ Total Parenteral Nutrition/Amino Acids/Dextrose/ Fat Emulsion Intravenous 1,680 ml @ 70 mls/hr TPN CONT IV Last administered on 10/26/19at 21:51; Start 10/26/19 at 22:00; Stop 10/27/19 at 21:59; Status DC Sodium Chloride 90 meq/Potassium Chloride 30 meq/ Potassium Acetate 30 meq/Magnesium Sulfate 15 meq/ Multivitamins 10 ml/Chromium/ Copper/Manganese/ Seleni/Zn 1 ml/ Insulin Human Regular 15 unit/ Total Parenteral Nutrition/Amino Acids/Dextrose/ Fat Emulsion Intravenous 1,680 ml @ 70 mls/hr TPN CONT IV Last administered on 10/27/19at 22:38; Start 10/27/19 at 22:00; Stop 10/28/19 at 21:59; Status DC Fentanyl Citrate 30 ml @ 0 mls/hr CONT PRN IV SEE I/O RECORD; Start 10/27/19 at 17:30; Stop 11/21/19 at 09:45; Status DC Fentanyl (Duragesic 12mcg/ Hr Patch) 1 patch Q3DAYS TD Last administered on 11/30/19at 08:28; Start 10/28/19 at 09:00 Sodium Chloride 90 meq/Potassium Chloride 30 meq/ Potassium Acetate 30 meq/Magnesium Sulfate 15 meq/ Multivitamins 10 ml/Chromium/ Copper/Manganese/ Seleni/Zn 1 ml/ Insulin Human Regular 15 unit/ Total Parenteral Nutrition/Amino Acids/Dextrose/ Fat Emulsion Intravenous 1,680 ml @ 70 mls/hr TPN CONT IV Last administered on 10/28/19at 21:59; Start 10/28/19 at 22:00; Stop 10/29/19 at 21:59; Status DC Sodium Chloride 90 meq/Potassium Chloride 30 meq/ Potassium Acetate 30 meq/Magnesium Sulfate 15 meq/ Multivitamins 10 ml/Chromium/ Copper/Manganese/ Seleni/Zn 1 ml/ Insulin Human Regular 15 unit/ Total Parenteral Nutrition/Amino Acids/Dextrose/ Fat Emulsion Intravenous 1,680 ml @ 70 mls/hr TPN CONT IV Last administered on 10/29/19at 21:35; Start 10/29/19 at 22:00; Stop 10/30/19 at 21:59; Status DC Vancomycin HCl (Vanco Per Pharmacy) 1 each PRN DAILY PRN MC SEE COMMENTS Last administered on 11/01/19at 02:46; Start 10/30/19 at 09:15; Stop 11/02/19 at 07:41; Status DC Ciprofloxacin/ Dextrose 200 ml @ 200 mls/hr Q12HR IV Last administered on 11/07/19at 21:02; Start 10/30/19 at 10:00; Stop 11/08/19 at 08:20; Status DC Vancomycin HCl 2 gm/Sodium Chloride 500 ml @ 250 mls/hr 1X ONCE IV Last administered on 10/30/19at 10:34; Start 10/30/19 at 10:00; Stop 10/30/19 at 11:59; Status DC Sodium Chloride 90 meq/Potassium Chloride 30 meq/ Potassium Acetate 30 meq/Magnesium Sulfate 15 meq/ Multivitamins 10 ml/Chromium/ Copper/Manganese/ Seleni/Zn 1 ml/ Insulin Human Regular 15 unit/ Total Parenteral Nutrition/Amino Acids/Dextrose/ Fat Emulsion Intravenous 1,680 ml @ 70 mls/hr TPN CONT IV Last administered on 10/30/19at 22:02; Start 10/30/19 at 22:00; Stop 10/31/19 at 21:59; Status DC Diphenhydramine HCl (Benadryl) 25 mg 1X ONCE IVP Last administered on 10/30/19at 14:26; Start 10/30/19 at 14:30; Stop 10/30/19 at 14:31; Status DC Vancomycin HCl 1.5 gm/Sodium Chloride 500 ml @ 250 mls/hr Q8H IV Last administered on 10/31/19at 03:08; Start 10/30/19 at 18:30; Stop 10/31/19 at 12:24; Status DC Vancomycin HCl (Vancomycin Trough Level) 1 each 1X ONCE MC Last administered on 10/31/19at 10:00; Start 10/31/19 at 10:00; Stop 10/31/19 at 10:01; Status DC Sodium Chloride 90 meq/Potassium Chloride 30 meq/ Potassium Acetate 30 meq/Magnesium Sulfate 15 meq/ Multivitamins 10 ml/Chromium/ Copper/Manganese/ Seleni/Zn 1 ml/ Insulin Human Regular 15 unit/ Total Parenteral Nutrition/Amino Acids/Dextrose/ Fat Emulsion Intravenous 1,680 ml @ 70 mls/hr TPN CONT IV Last administered on 10/31/19at 22:13; Start 10/31/19 at 22:00; Stop 11/01/19 at 21:59; Status DC Vancomycin HCl (Vancomycin Random Level) 1 each 1X ONCE MC Last administered on 11/01/19at 01:00; Start 11/01/19 at 01:00; Stop 11/01/19 at 01:01; Status DC Vancomycin HCl 1.5 gm/Sodium Chloride 500 ml @ 250 mls/hr Q12H IV Last administered on 11/01/19at 22:07; Start 11/01/19 at 10:00; Stop 11/02/19 at 07:41; Status DC Vancomycin HCl (Vancomycin Trough Level) 1 each 1X ONCE MC ; Start 11/02/19 at 09:30; Stop 11/02/19 at 09:31; Status Cancel Sodium Chloride 90 meq/Potassium Chloride 30 meq/ Potassium Acetate 30 meq/Magnesium Sulfate 15 meq/ Multivitamins 10 ml/Chromium/ Copper/Manganese/ Seleni/Zn 1 ml/ Insulin Human Regular 15 unit/ Total Parenteral Nutrition/Amino Acids/Dextrose/ Fat Emulsion Intravenous 1,680 ml @ 70 mls/hr TPN CONT IV Last administered on 11/01/19at 22:08; Start 11/01/19 at 22:00; Stop 11/02/19 at 21:59; Status DC Alteplase, Recombinant (Cathflo For Central Catheter Clearance) 1 mg 1X ONCE INT CAT Last administered on 11/01/19at 11:49; Start 11/01/19 at 11:00; Stop 11/01/19 at 11:01; Status DC Daptomycin 500 mg/ Sodium Chloride 50 ml @ 100 mls/hr Q24H IV Last administered on 11/11/19at 08:25; Start 11/02/19 at 09:00; Stop 11/11/19 at 08:38; Status DC Sodium Chloride 90 meq/Potassium Chloride 30 meq/ Potassium Acetate 30 meq/Magnesium Sulfate 15 meq/ Multivitamins 10 ml/Chromium/ Copper/Manganese/ Seleni/Zn 1 ml/ Insulin Human Regular 15 unit/ Total Parenteral Nutrition/Amino Acids/Dextrose/ Fat Emulsion Intravenous 1,680 ml @ 70 mls/hr TPN CONT IV Last administered on 11/02/19at 22:55; Start 11/02/19 at 22:00; Stop 11/03/19 at 21:59; Status DC Sodium Chloride 90 meq/Potassium Chloride 30 meq/ Potassium Acetate 30 meq/Magnesium Sulfate 15 meq/ Multivitamins 10 ml/Chromium/ Copper/Manganese/ Seleni/Zn 1 ml/ Insulin Human Regular 15 unit/ Total Parenteral Nutrition/Amino Acids/Dextrose/ Fat Emulsion Intravenous 1,680 ml @ 70 mls/hr TPN CONT IV Last administered on 11/03/19at 22:06; Start 11/03/19 at 22:00; Stop 11/04/19 at 21:59; Status DC Diphenhydramine HCl (Benadryl) 50 mg STK-MED ONCE .ROUTE ; Start 11/03/19 at 18:34; Stop 11/03/19 at 18:35; Status DC Diphenhydramine HCl (Benadryl) 25 mg 1X ONCE IM ; Start 11/03/19 at 18:45; Stop 11/03/19 at 18:46; Status DC Diphenhydramine HCl (Benadryl) 25 mg 1X ONCE IVP Last administered on at 18:56; Start 11/03/19 at 19:00; Stop 11/03/19 at 19:01; Status DC Alprazolam (Xanax) 0.5 mg PRN TID PRN PO ANXIETY / AGITATION Last administered on 11/10/19at 11:49; Start 11/04/19 at 08:00; Stop 11/10/19 at 15:54; Status DC Sodium Chloride 110 meq/Potassium Chloride 30 meq/ Potassium Acetate 30 meq/Magnesium Sulfate 15 meq/ Multivitamins 10 ml/Chromium/ Copper/Manganese/ Seleni/Zn 1 ml/ Insulin Human Regular 15 unit/ Total Parenteral Nutrition/Amino Acids/Dextrose/ Fat Emulsion Intravenous 1,680 ml @ 70 mls/hr TPN CONT IV Last administered on 11/04/19at 21:21; Start 11/04/19 at 22:00; Stop 11/05/19 at 21:59; Status DC Sodium Chloride 110 meq/Potassium Chloride 30 meq/ Potassium Acetate 30 meq/Magnesium Sulfate 15 meq/ Multivitamins 10 ml/Chromium/ Copper/Manganese/ Seleni/Zn 1 ml/ Insulin Human Regular 15 unit/ Total Parenteral Nutrition/Amino Acids/Dextrose/ Fat Emulsion Intravenous 1,680 ml @ 70 mls/hr TPN CONT IV Last administered on 11/05/19at 22:01; Start 11/05/19 at 22:00; Stop 11/06/19 at 21:59; Status DC Alteplase, Recombinant (Cathflo For Central Catheter Clearance) 1 mg 1X ONCE INT CAT Last administered on 11/06/19at 08:23; Start 11/06/19 at 08:15; Stop 11/06/19 at 08:16; Status DC Sodium Chloride 110 meq/Sodium Phosphate 10 mmol/ Potassium Chloride 30 meq/ Potassium Acetate 30 meq/Magnesium Sulfate 15 meq/ Multivitamins 10 ml/Chromium/ Copper/Manganese/ Seleni/Zn 1 ml/ Insulin Human Regular 15 unit/ Total Parenteral Nutrition/Amino Acids/Dextrose/ Fat Emulsion Intravenous 1,680 ml @ 70 mls/hr TPN CONT IV Last administered on 11/06/19at 22:03; Start 11/06/19 at 22:00; Stop 11/07/19 at 21:59; Status DC Sodium Chloride 120 meq/Sodium Phosphate 10 mmol/ Potassium Chloride 30 meq/ Potassium Acetate 30 meq/Magnesium Sulfate 15 meq/ Multivitamins 10 ml/Chromium/ Copper/Manganese/ Seleni/Zn 1 ml/ Insulin Human Regular 15 unit/ Total Parenteral Nutrition/Amino Acids/Dextrose/ Fat Emulsion Intravenous 1,680 ml @ 70 mls/hr TPN CONT IV Last administered on 11/07/19at 22:08; Start 11/07/19 at 22:00; Stop 11/08/19 at 21:59; Status DC Ceftazidime/ Avibactam 2.5 gm/ Sodium Chloride 100 ml @ 50 mls/hr Q8HRS IV Last administered on 11/09/19at 05:32; Start 11/08/19 at 14:00; Stop 11/09/19 at 07:48; Status DC Alteplase, Recombinant (Cathflo For Central Catheter Clearance) 1 mg 1X ONCE INT CAT Last administered on 11/08/19at 09:30; Start 11/08/19 at 09:30; Stop 11/08/19 at 09:31; Status DC Sodium Chloride 120 meq/Sodium Phosphate 10 mmol/ Potassium Chloride 30 meq/ Potassium Acetate 30 meq/Magnesium Sulfate 15 meq/ Multivitamins 10 ml/Chromium/ Copper/Manganese/ Seleni/Zn 1 ml/ Insulin Human Regular 15 unit/ Total Parent eral Nutrition/Amino Acids/Dextrose/ Fat Emulsion Intravenous 1,680 ml @ 70 mls/hr TPN CONT IV Last administered on 11/08/19at 22:11; Start 11/08/19 at 22:00; Stop 11/09/19 at 21:59; Status DC Iohexol (Omnipaque 300 Mg/ml) 75 ml 1X ONCE IV Last administered on 11/08/19at 11:30; Start 11/08/19 at 11:30; Stop 11/08/19 at 11:31; Status DC Info (CONTRAST GIVEN -- Rx MONITORING) 1 each PRN DAILY PRN MC SEE COMMENTS; Start 11/08/19 at 11:45; Stop 11/10/19 at 11:44; Status DC Alteplase, Recombinant (Cathflo For Central Catheter Clearance) 1 mg 1X ONCE INT CAT Last administered on 11/08/19at 12:17; Start 11/08/19 at 12:00; Stop 11/08/19 at 12:01; Status DC Cefepime HCl (Maxipime) 2 gm Q12HR IVP Last administered on 11/09/19at 20:53; Start 11/09/19 at 09:00; Stop 11/10/19 at 07:30; Status DC Sodium Chloride 120 meq/Sodium Phosphate 10 mmol/ Potassium Chloride 30 meq/ Potassium Acetate 30 meq/Magnesium Sulfate 15 meq/ Multivitamins 10 ml/Chromium/ Copper/Manganese/ Seleni/Zn 1 ml/ Insulin Human Regular 15 unit/ Total Parenteral Nutrition/Amino Acids/Dextrose/ Fat Emulsion Intravenous 1,680 ml @ 70 mls/hr TPN CONT IV Last administered on 11/09/19at 21:25; Start 11/09/19 at 22:00; Stop 11/10/19 at 21:59; Status DC Ceftazidime/ Avibactam 2.5 gm/ Sodium Chloride 250 ml @ 125 mls/hr Q8HRS IV Last administered on 11/23/19at 05:38; Start 11/10/19 at 08:00; Stop 11/23/19 at 08:20; Status DC Sodium Chloride 120 meq/Sodium Phosphate 10 mmol/ Potassium Chloride 30 meq/ Potassium Acetate 30 meq/Magnesium Sulfate 15 meq/ Multivitamins 10 ml/Chromium/ Copper/Manganese/ Seleni/Zn 1 ml/ Insulin Human Regular 15 unit/ Total Parenteral Nutrition/Amino Acids/Dextrose/ Fat Emulsion Intravenous 1,680 ml @ 70 mls/hr TPN CONT IV Last administered on 11/10/19at 22:35; Start 11/10/19 at 22:00; Stop 11/11/19 at 21:59; Status DC Alprazolam (Xanax) 0.5 mg PRN QID PRN PO ANXIETY / AGITATION Last administered on 12/01/19at 03:25; Start 11/10/19 at 16:00 Acetaminophen/ Hydrocodone Bitart (Lortab 5/325) 1 tab PRN Q4HRS PRN PO PAIN Last administered on 12/01/19at 12:25; Start 11/10/19 at 16:00 Sodium Chloride 120 meq/Sodium Phosphate 10 mmol/ Potassium Chloride 30 meq/ Potassium Acetate 30 meq/Magnesium Sulfate 15 meq/ Multivitamins 10 ml/Chromium/ Copper/Manganese/ Seleni/Zn 1 ml/ Insulin Human Regular 15 unit/ Total Parenteral Nutrition/Amino Acids/Dextrose/ Fat Emulsion Intravenous 1,680 ml @ 70 mls/hr TPN CONT IV Last administered on 11/11/19at 21:50; Start 11/11/19 at 22:00; Stop 11/12/19 at 21:59; Status DC Sodium Chloride 120 meq/Sodium Phosphate 10 mmol/ Potassium Chloride 30 meq/ Potassium Acetate 30 meq/Magnesium Sulfate 15 meq/ Multivitamins 10 ml/Chromium/ Copper/Manganese/ Seleni/Zn 1 ml/ Insulin Human Regular 15 unit/ Total Parenteral Nutrition/Amino Acids/Dextrose/ Fat Emulsion Intravenous 1,680 ml @ 70 mls/hr TPN CONT IV Last administered on 11/12/19at 22:14; Start 11/12/19 at 22:00; Stop 11/13/19 at 21:59; Status DC Daptomycin 500 mg/ Sodium Chloride 50 ml @ 100 mls/hr Q24H IV Last administered on 11/22/19at 09:20; Start 11/13/19 at 09:00; Stop 11/23/19 at 08:20; Status DC Sodium Chloride 120 meq/Sodium Phosphate 10 mmol/ Potassium Chloride 30 meq/ Potassium Acetate 30 meq/Magnesium Sulfate 15 meq/ Multivitamins 10 ml/Chromium/ Copper/Manganese/ Seleni/Zn 1 ml/ Insulin Human Regular 15 unit/ Total Parenteral Nutrition/Amino Acids/Dextrose/ Fat Emulsion Intravenous 1,680 ml @ 70 mls/hr TPN CONT IV ; Start 11/13/19 at 22:00; Stop 11/14/19 at 21:59; Status Cancel Amino Acids/ Glycerin/ Electrolytes 1,000 ml @ 80 mls/hr [id number] IV Last administered on 11/19/19at 18:10; Start 11/13/19 at 10:15; Stop 11/20/19 at 07:07; Status DC Iohexol (Omnipaque 300 Mg/ml) 50 ml 1X ONCE IJ ; Start 11/15/19 at 11:00; Stop 11/15/19 at 11:01; Status DC Sodium Chloride 500 ml @ 500 mls/hr 1X ONCE IV Last administered on 11/15/19at 18:30; Start 11/15/19 at 18:30; Stop 11/15/19 at 19:29; Status DC Lidocaine HCl (Buffered Lidocaine 1%) 3 ml 1X ONCE INJ ; Start 11/17/19 at 12:15; Stop 11/17/19 at 12:17; Status DC Fentanyl Citrate (Fentanyl 2ml Vial) 25 mcg PRN Q6HRS PRN IVP SEE INSTUCTIONS Last administered on 11/27/19at 06:00; Start 11/21/19 at 10:00 Sodium Chloride 1,000 ml @ 125 mls/hr Q8H IV Last administered on 11/21/19at 23:16; Start 11/21/19 at 23:21; Stop 11/22/19 at 09:23; Status DC Sodium Chloride 1,000 ml @ 350 mls/hr 1X ONCE IV Last administered on 11/21/19at 20:29; Start 11/21/19 at 20:30; Stop 11/21/19 at 23:21; Status DC Vitamin A/Vitamin D (Vitamin A & D Ointment) 1 ramu PRN Q1HR PRN TP SKIN PROTECTION Last administered on 12/01/19at 08:36; Start 11/22/19 at 09:15 Iohexol (Omnipaque 240 Mg/ml) 50 ml STK-MED ONCE .ROUTE ; Start 11/22/19 at 14:18; Stop 11/22/19 at 14:19; Status DC Lidocaine HCl (Buffered Lidocaine 1%) 3 ml STK-MED ONCE .ROUTE ; Start 11/22/19 at 14:19; Stop 11/22/19 at 14:19; Status DC Fentanyl Citrate (Fentanyl 2ml Vial) 100 mcg STK-MED ONCE .ROUTE ; Start 11/22/19 at 15:03; Stop 11/22/19 at 15:03; Status DC Lidocaine HCl (Buffered Lidocaine 1%) 5 ml 1X ONCE INJ Last administered on 11/22/19at 15:00; Start 11/22/19 at 15:45; Stop 11/22/19 at 15:46; Status DC Iohexol (Omnipaque 240 Mg/ml) 10 ml 1X ONCE IJ Last administered on 11/22/19at 15:00; Start 11/22/19 at 15:45; Stop 11/22/19 at 15:46; Status DC Multivitamins/ Minerals Therapeutic (Centrum Multivit-Mineral Liq) 5 ml DAILY PEG Last administered on 12/01/19at 08:43; Start 11/23/19 at 09:00 Alteplase, Recombinant 5 mg/ Sodium Chloride 30 ml @ 30 mls/hr 1X PRN IV SEE COMMENTS; Start 11/23/19 at 06:45; Status UNV Alteplase, Recombinant (Cathflo For Central Catheter Clearance) 1 mg 1X ONCE INT CAT Last administered on 11/23/19at 09:30; Start 11/23/19 at 07:00; Stop 11/23/19 at 07:01; Status DC Sodium Chloride 1,000 ml @ 125 mls/hr 1X ONCE IV Last administered on 11/23/19at 16:12; Start 11/23/19 at 14:30; Stop 11/23/19 at 22:29; Status DC Furosemide (Lasix) 40 mg 1X ONCE IVP Last administered on 11/23/19at 16:17; Start 11/23/19 at 14:30; Stop 11/23/19 at 14:33; Status DC Furosemide (Lasix) 40 mg [id number] IVP Last administered on 11/24/19at 13:51; Start 11/24/19 at 09:00; Stop 11/24/19 at 14:01; Status DC Sodium Chloride 1,000 ml @ 125 mls/hr 1X ONCE IV Last administered on 11/24/19at 08:20; Start 11/24/19 at 07:45; Stop 11/24/19 at 15:44; Status DC Calcitonin Irrigon (Miacalcin) 400 unit BID SQ Last administered on 11/24/19at 18:18; Start 11/24/19 at 18:00; Stop 11/25/19 at 15:56; Status DC Zoledronic Acid 100 ml @ 400 mls/hr 1X ONCE IV Last administered on 11/25/19at 13:04; Start 11/25/19 at 12:00; Stop 11/25/19 at 12:14; Status DC Metoprolol Tartrate (Lopressor Vial) 5 mg 1X ONCE IVP Last administered on 11/27/19at 10:54; Start 11/27/19 at 10:45; Stop 11/27/19 at 10:46; Status DC Cefepime HCl (Maxipime) 2 gm Q12HR IVP Last administered on 12/01/19at 08:38; Start 11/28/19 at 10:00 Metronidazole 100 ml @ 100 mls/hr Q12HR IV Last administered on 12/01/19at 08:43; Start 11/28/19 at 10:00 Sodium Chloride 1,000 ml @ 75 mls/hr [id number] IV Last administered on 11/29/19at 09:55; Start 11/28/19 at 18:45; Stop 11/30/19 at 11:12; Status DC Sodium Chloride 1,000 ml @ 1,000 mls/hr 1X ONCE IV Last administered on 11/29/19at 14:00; Start 11/29/19 at 14:00; Stop 11/29/19 at 14:59; Status DC Ringer's Solution 1,000 ml @ 175 mls/hr [id number] IV Last administered on 12/01/19at 06:27; Start 11/29/19 at 14:30 Sodium Bicarbonate (Sodium Bicarb Adult 8.4% Syr) 100 meq 1X ONCE IV Last administered on 11/29/19at 14:32; Start 11/29/19 at 14:30; Stop 11/29/19 at 14:35; Status DC Sodium Bicarbonate (Sodium Bicarb Adult 8.4% Syr) 50 meq STK-MED ONCE .ROUTE ; Start 11/29/19 at 14:30; Stop 11/29/19 at 14:30; Status DC Sodium Chloride 1,000 ml @ 1,000 mls/hr 1X ONCE IV Last administered on 11/30/19at 09:18; Start 11/30/19 at 08:45; Stop 11/30/19 at 09:44; Status DC Sodium Chloride 1,000 ml @ 1,000 mls/hr 1X ONCE IV Last administered on 11/30/19at 17:17; Start 11/30/19 at 17:15; Stop 11/30/19 at 18:14; Status DC Sodium Chloride 1,000 ml @ 1,000 mls/hr 1X ONCE IV Last administered on 12/01/19at 09:39; Start 12/01/19 at 09:45; Stop 12/01/19 at 10:44; Status DC Active Scripts Active Reported Bisoprolol Fumarate 5 Mg Tablet 10 Mg PO DAILY Vitals/I & O Vital Sign - Last 24 Hours 11/30/19 11/30/19 11/30/19 11/30/19 12:42 13:42 15:10 16:27 Temp 98.6 98.6 Pulse 134 Resp 28 B/P (MAP) 104/61 (75) Pulse Ox 100 100 95 98 O2 Delivery Nasal Cannula Nasal Cannula Room Air Room Air O2 Flow Rate 2.0 2.0 11/30/19 11/30/19 11/30/19 11/30/19 19:35 19:36 19:51 19:55 Temp 97.4 97.4 Pulse 121 Resp 28 B/P (MAP) 104/60 (75) Pulse Ox 100 100 98 O2 Delivery Nasal Cannula Nasal Cannula Nasal Cannula Nasal Cannula O2 Flow Rate 1.5 1.5 2.0 1.5 11/30/19 11/30/19 11/30/19 12/01/19 20:49 21:49 23:50 00:19 Temp 97.5 97.5 Pulse 116 Resp 38 38 22 B/P (MAP) 94/49 (64) Pulse Ox 98 98 98 100 O2 Delivery Nasal Cannula Nasal Cannula Nasal Cannula Nasal Cannula O2 Flow Rate 1.5 1.5 1.5 1.5 12/01/19 12/01/19 12/01/19 12/01/19 02:21 03:26 04:09 04:26 Temp 98.3 98.3 Pulse 126 Resp 24 40 36 B/P (MAP) 97/52 (67) Pulse Ox 98 98 100 100 O2 Delivery Nasal Cannula Nasal Cannula Nasal Cannula Nasal Cannula O2 Flow Rate 1.5 1.5 1.5 1.5 12/01/19 12/01/19 12/01/19 12/01/19 07:00 08:07 08:08 10:37 Temp 97.8 97.6 97.8 97.6 Pulse 64 120 Resp 24 24 B/P (MAP) 115/67 (83) 105/35 (58) Pulse Ox 97 100 100 98 O2 Delivery Nasal Cannula Nasal Cannula Nasal Cannula Nasal Cannula O2 Flow Rate 1.5 1.5 1.5 1.5 12/01/19 12/01/19 11:44 12:25 Pulse Ox 98 O2 Delivery Nasal Cannula Nasal Cannula O2 Flow Rate 1.5 1.5 Intake and Output 11/30/19 11/30/19 12/01/19 15:00 23:00 07:00 Intake Total 2968 ml 935 ml Output Total 650 ml 350 ml 1050 ml Balance -650 ml 2618 ml -115 ml Justicifation of Admission Dx: Justifications for Admission: Justification of Admission Dx: Yes GREG HERRERA MD Dec 01, 2019 12:41
[2019-12-01] MEDS: fentaNYL PF VIAL 100 MCG/2 ML VIAL IVP PRN (15:54)
[2019-12-02] MEDS: IPRATRPIUM/ALBUTEROL 0.5/2.5MG 3 ML NEBU. NEB SCH ×6 (00:22→20:29)
[2019-12-02] MEDS: CYCLOBENZAPRINE 10 MG TABLET. PO PRN (00:29)
[2019-12-02] MEDS: ALPRAZolam 0.5 MG TABLET PO PRN ×2 (00:29→08:41)
[2019-12-02] MEDS: CEFEPIME HCL IV Push 2 GM VIAL. IVP SCH ×3 (00:30→20:45)
[2019-12-02] MEDS: IV RINGERS,LACTATED 1000ML 1,000 ML IV SCH ×5 (03:28→23:33)
[2019-12-02 04:51] VITALS: BP 110/66
[2019-12-02] MEDS: INSULIN LISPRO 300 UNITS/3 ML VIAL. SQ SCH ×4 (06:00→17:37)
[2019-12-02 07:00] VITALS: BP 102/55
[2019-12-02] MEDS: ACETYLCYSTEINE 20% for RESP TX 600 MG/3 ML. NEB SCH ×2 (08:00→20:29)
--- NOTE | 2019-12-02 08:06 | PDOC ---
Infectious Disease Note Subjective: Subjective Pt lethargic, arousable Afebrile last 96hrs Vital Signs: Vital Signs Vital Signs Date Time Temp Pulse Resp B/P (MAP) Pulse Ox O2 Delivery O2 Flow Rate FiO2 12/02/19 07:00 97.5 117 28 102/55 (71) 99 Nasal Cannula 2.0 97.5 Physical Exam: PHYSICAL EXAM GENERAL: Resting in bed, NAD HEENT: Pupils equal, oral cavity dry. OC/Op - Dry NECK: Tracheostomy capped LUNGS: Diminished aeration bases, HEART: S1, S2, ABDOMEN: Less distended, mild- bowel sounds hypoactive, soft, GJ drain present, drainage bag in place with depedent drainage : Lind in place EXTREMITIES: Trace generalized edema, no cyanosis. Yeast in groin area SKIN: warm touch. No signs of rash. NEURO: - Alert and responsive RUE PICC site without signs of complications. PIV s clean EC fistula Medications: Inpatient Meds: Current Medications Medications (Trade) Dose Ordered Sig/Yvon Start Time Stop Time Status Last Admin Dose Admin Acetaminophen (Tylenol Supp) 650 mg PRN Q6HRS PRN 07/12/19 10:30 11/28/19 15:43 650 MG Acetaminophen (Tylenol) 650 mg PRN Q6HRS PRN 07/09/19 03:36 08/31/19 10:25 DC 08/04/19 19:56 650 MG Acetaminophen/ Hydrocodone Bitart (Lortab 5/325) 1 tab PRN Q4HRS PRN 11/10/19 16:00 12/01/19 12:25 1 TAB Acetylcysteine (Mucomyst 20% Resp Treatment) 600 mg RTBID 10/15/19 12:00 12/01/19 19:55 600 MG Albumin Human 500 ml @ 125 mls/hr PRN Q1HR PRN 10/18/19 15:45 11/21/19 09:52 DC Albuterol Sulfate (Ventolin Neb Soln) 2.5 mg 1X ONCE 07/05/19 22:30 07/05/19 22:31 DC 07/06/19 00:56 2.5 MG Albuterol/ Ipratropium (Duoneb) 3 ml Q4HRS 10/01/19 08:00 12/02/19 03:40 3 ML Alprazolam (Xanax) 0.5 mg PRN QID PRN 11/10/19 16:00 12/02/19 00:29 0.5 MG Alteplase, Recombinant (Cathflo For Central Catheter Clearance) 1 mg 1X ONCE 11/23/19 07:00 11/23/19 07:01 DC 11/23/19 09:30 1 MG Alteplase, Recombinant 4 mg/ Sodium Chloride 20 ml @ 20 mls/hr 1X ONCE 10/05/19 10:00 10/05/19 10:59 DC 10/05/19 10:09 20 MLS/HR Alteplase, Recombinant 5 mg/ Sodium Chloride 30 ml @ 30 mls/hr 1X PRN 11/23/19 06:45 UNV Amino Acids/ Glycerin/ Electrolytes 1,000 ml @ 80 mls/hr [id number] 11/13/19 10:15 11/20/19 07:07 DC 11/19/19 18:10 80 MLS/HR Artificial Tears (Artificial Tears) 1 drop PRN Q15MIN PRN 08/17/19 05:30 10/11/19 21:17 1 DROP Atenolol (Tenormin) 100 mg DAILY 07/05/19 09:00 07/04/19 20:08 DC Atropine Sulfate (ATROPINE 0.5mg SYRINGE) 0.5 mg PRN Q5MIN PRN 07/21/19 08:15 11/21/19 09:45 DC Barium Sulfate (Varibar Thin Liquid Apple) 148 gm 1X ONCE 09/13/19 11:45 09/13/19 11:49 DC Benzocaine (Hurricaine One) 1 spray 1X ONCE 07/08/19 14:30 07/08/19 14:31 DC 07/08/19 16:38 1 SPRAY Bisacodyl (Dulcolax Supp) 10 mg STK-MED ONCE 08/15/19 10:59 08/15/19 10:59 DC Bumetanide (Bumex) 2 mg DAILY 08/26/19 10:00 09/05/19 17:15 DC 09/05/19 08:07 2 MG Bupivacaine HCl/ Epinephrine Bitart (Sensorcain-Epi 0.5%-1:043322 Mpf) 30 ml STK-MED ONCE 10/18/19 08:34 10/18/19 08:35 DC Calcitonin [place] (Miacalcin) 400 unit BID 11/24/19 18:00 11/25/19 15:56 DC 11/24/19 18:18 400 UNIT Calcium Carbonate/ Glycine (Tums) 500 mg PRN [id number] PRN 07/06/19 17:45 08/31/19 10:25 DC Calcium Chloride 1000 mg/Sodium Chloride 110 ml @ 220 mls/hr 1X ONCE 07/05/19 22:30 07/05/19 22:59 DC 07/05/19 22:11 220 MLS/HR Calcium Chloride 3000 mg/Sodium Chloride 1,030 ml @ 50 mls/hr [id number] 07/07/19 08:00 07/09/19 15:23 DC 07/09/19 02:17 50 MLS/HR Calcium Gluconate (Calcium Gluconate) 2,000 mg 1X ONCE 07/07/19 02:15 07/07/19 02:16 DC 07/07/19 02:19 2,000 MG Calcium Gluconate 1000 mg/Sodium Chloride 110 ml @ 220 mls/hr 1X ONCE 07/06/19 03:30 07/06/19 03:59 DC 07/06/19 03:21 220 MLS/HR Calcium Gluconate 2000 mg/Sodium Chloride 120 ml @ 220 mls/hr 1X ONCE 07/06/19 07:30 07/06/19 08:02 DC 07/06/19 09:05 220 MLS/HR Cefepime HCl (Maxipime) 2 gm Q12HR 11/28/19 10:00 12/02/19 00:30 2 GM Ceftazidime/ Avibactam 2.5 gm/ Sodium Chloride 250 ml @ 125 mls/hr Q8HRS 11/10/19 08:00 11/23/19 08:20 DC 11/23/19 05:38 125 MLS/HR Cellulose (Surgicel Fibrillar 1x2) 1 each STK-MED ONCE 07/25/19 11:00 07/25/19 11:01 DC Cellulose (Surgicel Hemostat 2x14) 1 each STK-MED ONCE 08/15/19 10:58 08/15/19 10:59 DC Cellulose (Surgicel Hemostat 4x8) 1 each STK-MED ONCE 08/15/19 10:58 08/15/19 10:59 DC Chlorhexidine Gluconate (Peridex) 15 ml BID 10/01/19 09:00 10/01/19 07:58 DC Ciprofloxacin/ Dextrose 200 ml @ 200 mls/hr Q12HR 10/30/19 10:00 11/08/19 08:20 DC 11/07/19 21:02 200 MLS/HR Cyclobenzaprine HCl (Flexeril) 10 mg PRN Q6HRS PRN 08/18/19 10:45 12/02/19 00:29 10 MG Daptomycin 410 mg/ Sodium Chloride 50 ml @ 100 mls/hr Q24H 09/25/19 14:00 09/28/19 08:30 DC 09/27/19 13:33 100 MLS/HR Daptomycin 430 mg/ Sodium Chloride 50 ml @ 100 mls/hr Q24H 08/13/19 13:00 08/18/19 20:58 DC 08/18/19 13:00 100 MLS/HR Daptomycin 450 mg/ Sodium Chloride 50 ml @ 100 mls/hr Q24H 09/04/19 09:00 09/08/19 08:30 DC 09/07/19 09:25 100 MLS/HR Daptomycin 485 mg/ Sodium Chloride 50 ml @ 100 mls/hr Q24H 08/22/19 11:00 08/30/19 07:44 DC 08/29/19 13:10 100 MLS/HR Daptomycin 500 mg/ Sodium Chloride 50 ml @ 100 mls/hr Q24H 11/13/19 09:00 11/23/19 08:20 DC 11/22/19 09:20 100 MLS/HR Desflurane (Suprane) 90 ml STK-MED ONCE 10/18/19 10:18 10/18/19 10:19 DC Dexamethasone Sodium Phosphate (Decadron) 4 mg STK-MED ONCE 08/15/19 10:56 08/15/19 10:57 DC Dexmedetomidine HCl 400 mcg/ Sodium Chloride 100 ml @ 0 mls/hr CONT PRN 07/21/19 08:15 09/17/19 18:31 DC 09/17/19 12:57 8 MLS/HR Dextrose (Dextrose 50%-Water Syringe) 12.5 gm PRN Q15MIN PRN 07/04/19 09:30 Digoxin (Lanoxin) 125 mcg 1X ONCE 07/07/19 18:00 07/07/19 18:01 DC 07/07/19 17:10 125 MCG Diphenhydramine HCl (Benadryl) 25 mg 1X ONCE 11/03/19 19:00 11/03/19 19:01 DC 11/03/19 18:56 25 MG Duloxetine HCl (Cymbalta) 30 mg DAILY 08/28/19 14:00 08/31/19 10:25 DC 08/29/19 09:48 30 MG Enoxaparin Sodium (Lovenox 100mg Syringe) 100 mg Q12HR 08/09/19 21:00 UNV Enoxaparin Sodium (Lovenox 40mg Syringe) 40 mg Q24H 10/19/19 08:00 11/30/19 08:28 40 MG Ephedrine Sulfate (ePHEDrine PF IN SALINE SYRINGE) 50 mg STK-MED ONCE 10/18/19 14:45 10/18/19 14:45 DC Etomidate (Amidate) 8 mg 1X ONCE 07/11/19 08:30 07/11/19 08:31 DC 07/11/19 08:33 8 MG Fentanyl (Duragesic 12mcg/ Hr Patch) 1 patch Q3DAYS 10/28/19 09:00 11/30/19 08:28 1 PATCH Fentanyl (Duragesic 50mcg/ Hr Patch) 1 patch Q72H 09/22/19 21:00 10/01/19 12:00 DC 09/22/19 21:22 1 PATCH Fentanyl Citrate (Fentanyl 2ml Vial) 100 mcg STK-MED ONCE 11/22/19 15:03 11/22/19 15:03 DC Fentanyl Citrate (Fentanyl 5ml Vial) 250 mcg 1X ONCE 08/26/19 09:15 08/26/19 09:16 DC 08/26/19 09:30 50 MCG Flumazenil (Romazicon) 0.5 mg STK-MED ONCE 09/25/19 14:48 09/25/19 14:48 DC Fluoxetine HCl (PROzac) 20 mg QHS 09/22/19 21:00 12/02/19 00:32 20 MG Furosemide (Lasix) 40 mg [id number] 11/24/19 09:00 11/24/19 14:01 DC 11/24/19 13:51 40 MG Haloperidol Lactate (Haldol Inj) 3 mg 1X ONCE 08/22/19 14:30 08/22/19 14:31 DC 08/22/19 14:37 3 MG Heparin Sodium (Porcine) (Hep Lock Adult) 500 unit STK-MED ONCE 07/26/19 09:29 07/26/19 09:30 DC Heparin Sodium (Porcine) (Heparin Sodium) 5,000 unit Q12HR 08/15/19 21:00 08/25/19 09:59 DC 08/24/19 20:57 5,000 UNIT Heparin Sodium (Porcine) 1000 unit/Sodium Chloride 1,001 ml @ 1,001 mls/hr 1X ONCE 10/18/19 06:00 10/18/19 06:59 DC Hydromorphone HCl (Dilaudid Standard VISUAL [employer]IGN LEAD) 12 mg STK-MED ONCE 08/19/19 15:50 08/30/19 11:24 DC Hydromorphone HCl (Dilaudid) 1 mg PRN Q4HRS PRN 08/22/19 19:00 09/05/19 17:10 DC 09/05/19 06:25 1 MG Info (CONTRAST GIVEN -- Rx MONITORING) 1 each PRN DAILY PRN 11/08/19 11:45 11/10/19 11:44 DC Info (Icu Electrolyte Protocol) 1 ea CONT PRN PRN 07/17/19 13:15 Info (PHARMACY MONITORING -- do not chart) 1 each PRN DAILY PRN 08/12/19 15:45 09/13/19 14:14 DC Info (Tpn Per Pharmacy) 1 each PRN DAILY PRN 07/06/19 12:30 UNV Insulin Human Lispro (HumaLOG) 0-9 UNITS Q6HRS 07/04/19 09:30 11/28/19 19:01 3 UNITS Insulin Human Regular (HumuLIN R VIAL) 5 unit 1X ONCE 07/05/19 22:30 07/05/19 22:31 DC 07/05/19 22:14 5 UNIT Iohexol (Omnipaque 240 Mg/ml) 10 ml 1X ONCE 11/22/19 15:45 11/22/19 15:46 DC 11/22/19 15:00 10 ML Iohexol (Omnipaque 300 Mg/ml) 50 ml 1X ONCE 11/15/19 11:00 11/15/19 11:01 DC Iohexol (Omnipaque 350 Mg/ml) 90 ml 1X ONCE 07/04/19 03:30 07/04/19 03:31 DC 07/04/19 03:25 90 ML Ketorolac Tromethamine (Toradol 30mg Vial) 30 mg 1X ONCE 07/04/19 03:00 07/04/19 03:01 DC 07/04/19 02:54 30 MG Lidocaine HCl (Buffered Lidocaine 1%) 5 ml 1X ONCE 11/22/19 15:45 11/22/19 15:46 DC 11/22/19 15:00 5 ML Lidocaine HCl (Glydo (Lidocaine) Jelly) 1 ramu 1X ONCE 07/08/19 14:30 07/08/19 14:31 DC 07/08/19 16:38 1 RAMU Lidocaine HCl (Lidocaine 1% 20ml Vial) 20 ml 1X ONCE 09/25/19 15:00 09/25/19 15:01 DC 09/25/19 15:30 20 ML Lidocaine HCl (Lidocaine Pf 2% Vial) 5 ml STK-MED ONCE 10/18/19 07:44 10/18/19 07:44 DC Lidocaine HCl (Xylocaine-Mpf 1% 2ml Vial) 2 ml PRN 1X PRN 08/15/19 07:00 08/16/19 06:59 DC Linezolid/Dextrose 300 ml @ 300 mls/hr Q12HR 09/04/19 09:00 09/07/19 08:11 DC 09/06/19 21:08 300 MLS/HR Lorazepam (Ativan Inj) 0.25 mg PRN Q4HRS PRN 09/21/19 07:30 12/01/19 15:56 0.25 MG Magnesium Sulfate 50 ml @ 25 mls/hr 1X ONCE 10/18/19 16:30 10/18/19 18:29 DC 10/18/19 17:02 25 MLS/HR Meropenem 1 gm/ Sodium Chloride 100 ml @ 200 mls/hr Q12HR 09/25/19 21:00 10/13/19 08:56 DC 10/13/19 08:27 200 MLS/HR Meropenem 500 mg/ Sodium Chloride 50 ml @ 100 mls/hr Q6HRS 10/16/19 18:00 11/08/19 08:23 DC 11/08/19 06:15 100 MLS/HR Methylprednisolone Sodium Succinate (SOLU-Medrol 125MG VIAL) 125 mg 1X ONCE 10/01/19 06:15 10/01/19 06:16 DC 10/01/19 06:26 125 MG Metoclopramide HCl (Reglan Vial) 10 mg PRN Q3HRS PRN 08/27/19 16:45 09/01/19 04:25 10 MG Metoprolol Tartrate (Lopressor Vial) 5 mg 1X ONCE 11/27/19 10:45 11/27/19 10:46 DC 11/27/19 10:54 5 MG Metronidazole 100 ml @ 100 mls/hr Q12HR 11/28/19 10:00 12/02/19 00:30 100 MLS/HR Micafungin Sodium 100 mg/Dextrose 100 ml @ 100 mls/hr Q24H 10/18/19 08:30 11/23/19 08:20 DC 11/22/19 09:30 100 MLS/HR Midazolam HCl (Versed) 2 mg 1X ONCE 09/25/19 15:00 09/25/19 15:01 DC 09/25/19 15:28 1 MG Midazolam HCl 100 mg/Sodium Chloride 100 ml @ 1 mls/hr CONT PRN 10/18/19 14:45 11/21/19 09:45 DC 10/21/19 18:48 10 MLS/HR Midazolam HCl 50 mg/Sodium Chloride 50 ml @ 0 mls/hr CONT PRN 07/11/19 08:15 07/16/19 15:59 DC 07/14/19 22:39 7 MLS/HR Morphine Sulfate (Morphine Sulfate) 1 mg PRN Q1HR PRN 10/18/19 14:45 11/21/19 09:45 DC 11/12/19 18:28 1 MG Multi-Ingred Cream/Lotion/Oil/ Oint (Artificial Tears Eye Ointment) 1 ramu PRN Q1HR PRN 07/13/19 17:30 09/21/19 14:39 DC 08/01/19 08:19 1 RAMU Multivitamins/ Minerals Therapeutic (Centrum Multivit-Mineral Liq) 5 ml DAILY 11/23/19 09:00 12/01/19 08:43 5 ML Naloxone HCl (Narcan) 0.4 mg PRN Q2MIN PRN 10/18/19 14:45 11/21/19 09:45 DC Norepinephrine Bitartrate 8 mg/ Dextrose 258 ml @ 13.332 mls/ hr CONT PRN 09/25/19 06:30 11/21/19 09:45 DC 10/20/19 09:09 1.6 MLS/HR Ondansetron HCl (Zofran) 4 mg STK-MED ONCE 10/18/19 13:33 10/18/19 13:33 DC Pantoprazole Sodium (PROTONIX VIAL for IV PUSH) 40 mg DAILYAC 07/04/19 11:30 12/01/19 08:36 40 MG Phenylephrine HCl (Brayden-Synephrine Inj) 10 mg STK-MED ONCE 10/18/19 13:33 10/18/19 13:33 DC Phenylephrine HCl (PHENYLEPHRINE in 0.9% NACL PF) 1 mg STK-MED ONCE 10/18/19 14:44 10/18/19 14:45 DC Piperacillin Sod/ Tazobactam Sod 3.375 gm/Sodium Chloride 50 ml @ 100 mls/hr Q6HRS 09/14/19 12:00 09/22/19 07:26 DC 09/22/19 06:10 100 MLS/HR Piperacillin Sod/ Tazobactam Sod 4.5 gm/Sodium Chloride 100 ml @ 200 mls/hr 1X ONCE 07/04/19 06:00 07/04/19 06:29 DC 07/04/19 05:44 200 MLS/HR Potassium Chloride 110 meq/ Magnesium Sulfate 20 meq/ Multivitamins 10 ml/Chromium/ Copper/Manganese/ Seleni/Zn 1 ml/ Insulin Human Regular 15 unit/ Total Parenteral Nutrition/Amino Acids/Dextrose/ Fat Emulsion Intravenous 1,800 ml @ 75 mls/hr TPN CONT 09/11/19 22:00 09/12/19 21:59 DC 09/11/19 22:48 75 MLS/HR Potassium Chloride 15 meq/ Bicarbonate Dialysis Soln w/ out KCl 5,007.5 ml @ 1,000 mls/ hr Q5H1M 07/17/19 20:00 07/21/19 13:08 DC 07/20/19 18:14 1,000 MLS/HR Potassium Chloride 20 meq/ Bicarbonate Dialysis Soln w/ out KCl 5,010 ml @ 1,000 mls/hr Q5H1M 07/13/19 16:00 07/17/19 19:59 DC 07/17/19 14:54 1,000 MLS/HR Potassium Chloride 40 meq/ Potassium Acetate 60 meq/Magnesium Sulfate 10 meq/ Multivitamins 10 ml/Chromium/ Copper/Manganese/ Seleni/Zn 1 ml/ Insulin Human Regular 20 unit/ Total Parenteral Nutrition/Amino Acids/Dextrose/ Fat Emulsion Intravenous 1,800 ml @ 75 mls/hr TPN CONT 09/22/19 22:00 09/23/19 21:59 DC 09/23/19 00:03 75 MLS/HR Potassium Chloride 70 meq/ Magnesium Sulfate 20 meq/ Multivitamins 10 ml/Chromium/ Copper/Manganese/ Seleni/Zn 1 ml/ Insulin Human Regular 15 unit/ Total Parenteral Nutrition/Amino Acids/Dextrose/ Fat Emulsion Intravenous 1,800 ml @ 75 mls/hr TPN CONT 09/16/19 22:00 09/17/19 21:59 DC 09/16/19 23:13 75 MLS/HR Potassium Chloride 75 meq/ Magnesium Sulfate 15 meq/ Multivitamins 10 ml/Chromium/ Copper/Manganese/ Seleni/Zn 0.5 ml/ Insulin Human Regular 15 unit/ Total Parenteral Nutrition/Amino Acids/Dextrose/ Fat Emulsion Intravenous 1,920 ml @ 80 mls/hr TPN CONT 08/27/19 22:00 08/28/19 21:59 DC 08/27/19 22:41 80 MLS/HR Potassium Chloride 75 meq/ Magnesium Sulfate 15 meq/Calcium Gluconate 8 meq/ Multivitamins 10 ml/Chromium/ Copper/Manganese/ Seleni/Zn 0.5 ml/ Insulin Human Regular 15 unit/ Total Parenteral Nutrition/Amino Acids/Dextrose/ Fat Emulsion Intravenous 1,920 ml @ 80 mls/hr TPN CONT 08/25/19 22:00 08/26/19 21:59 DC 08/25/19 22:28 80 MLS/HR Potassium Chloride 75 meq/ Magnesium Sulfate 15 meq/Calcium Gluconate 8 meq/ Multivitamins 10 ml/Chromium/ Copper/Manganese/ Seleni/Zn 0.5 ml/ Insulin Human Regular 20 unit/ Total Parenteral Nutrition/Amino Acids/Dextrose/ Fat Emulsion Intravenous 1,920 ml @ 80 mls/hr TPN CONT 08/24/19 22:00 08/25/19 21:59 DC 08/24/19 22:00 80 MLS/HR Potassium Chloride 75 meq/ Magnesium Sulfate 15 meq/Calcium Gluconate 8 meq/ Multivitamins 10 ml/Chromium/ Copper/Manganese/ Seleni/Zn 0.5 ml/ Insulin Human Regular 25 unit/ Total Parenteral Nutrition/Amino Acids/Dextrose/ Fat Emulsion Intravenous 1,920 ml @ 80 mls/hr TPN CONT 08/22/19 22:00 08/23/19 21:59 DC 08/22/19 23:08 80 MLS/HR Potassium Chloride 75 meq/ Magnesium Sulfate 20 meq/Calcium Gluconate 10 meq/ Multivitamins 10 ml/Chromium/ Copper/Manganese/ Seleni/Zn 0.5 ml/ Insulin Human Regular 25 unit/ Total Parenteral Nutrition/Amino Acids/Dextrose/ Fat Emulsion Intravenous 1,920 ml @ 80 mls/hr TPN CONT 08/21/19 22:00 08/22/19 21:59 DC 08/21/19 22:04 80 MLS/HR Potassium Chloride 75 meq/ Magnesium Sulfate 20 meq/Calcium Gluconate 10 meq/ Multivitamins 10 ml/Chromium/ Copper/Manganese/ Seleni/Zn 0.5 ml/ Insulin Human Regular 30 unit/ Total Parenteral Nutrition/Amino Acids/Dextrose/ Fat Emulsion Intravenous 1,920 ml @ 80 mls/hr TPN CONT 08/20/19 22:00 08/21/19 22:00 DC 08/20/19 21:51 80 MLS/HR Potassium Chloride 80 meq/ Magnesium Sulfate 20 meq/ Multivitamins 10 ml/Chromium/ Copper/Manganese/ Seleni/Zn 0.5 ml/ Insulin Human Regular 15 unit/ Total Parenteral Nutrition/Amino Acids/Dextrose/ Fat Emulsion Intravenous 1,920 ml @ 80 mls/hr TPN CONT 08/30/19 22:00 08/31/19 21:59 DC 08/30/19 21:40 80 MLS/HR Potassium Chloride 80 meq/ Magnesium Sulfate 20 meq/ Multivitamins 10 ml/Chromium/ Copper/Manganese/ Seleni/Zn 1 ml/ Insulin Human Regular 15 unit/ Total Parenteral Nutrition/Amino Acids/Dextrose/ Fat Emulsion Intravenous 1,800 ml @ 75 mls/hr TPN CONT 09/18/19 22:00 09/19/19 21:59 DC 09/18/19 21:54 75 MLS/HR Potassium Chloride 90 meq/ Magnesium Sulfate 20 meq/ Multivitamins 10 ml/Chromium/ Copper/Manganese/ Seleni/Zn 1 ml/ Insulin Human Regular 15 unit/ Total Parenteral Nutrition/Amino Acids/Dextrose/ Fat Emulsion Intravenous 1,800 ml @ 75 mls/hr TPN CONT 09/07/19 22:00 09/08/19 21:59 DC 09/07/19 22:28 75 MLS/HR Potassium Chloride 90 meq/ Magnesium Sulfate 20 meq/ Multivitamins 10 ml/Chromium/ Copper/Manganese/ Seleni/Zn 1 ml/ Insulin Human Regular 20 unit/ Total Parenteral Nutrition/Amino Acids/Dextrose/ Fat Emulsion Intravenous 1,800 ml @ 75 mls/hr TPN CONT 09/21/19 22:00 09/22/19 21:59 DC 09/21/19 23:13 75 MLS/HR Potassium Chloride/Water 100 ml @ 100 mls/hr Q1H 10/05/19 08:00 10/05/19 09:59 DC 10/05/19 09:12 100 MLS/HR Potassium Phosphate 20 mmol/ Sodium Chloride 106.6667 ml @ 51.667 m... 1X ONCE 07/13/19 13:00 07/13/19 15:03 DC 07/13/19 12:51 51.667 MLS/HR Potassium Acetate 30 meq/Magnesium Sulfate 14 meq/ Multivitamins 10 ml/Chromium/ Copper/Manganese/ Seleni/Zn 1 ml/ Insulin Human Regular 15 unit/ Sodium Chloride 20 meq/Potassium Chloride 30 meq/ Total Parenteral Nutrition/Amino Acids/Dextrose/ Fat Emulsion Intravenous 1,920 ml @ 80 mls/hr TPN CONT 10/11/19 22:00 10/12/19 21:59 DC 10/11/19 21:46 80 MLS/HR Potassium Acetate 30 meq/Magnesium Sulfate 20 meq/ Calcium Gluconate 10 meq/ Multivitamins 10 ml/Chromium/ Copper/Manganese/ Seleni/Zn 0.5 ml/ Insulin Human Regular 30 unit/ Potassium Chloride 30 meq/ Total Parenteral Nutrition/Amino Acids/Dextrose/ Fat Emulsion Intravenous 1,920 ml @ 80 mls/hr TPN CONT 08/19/19 22:00 08/20/19 21:59 DC 08/19/19 22:34 80 MLS/HR Potassium Acetate 40 meq/Magnesium Sulfate 10 meq/ Multivitamins 10 ml/Chromium/ Copper/Manganese/ Seleni/Zn 1 ml/ Insulin Human Regular 20 unit/ Total Parenteral Nutrition/Amino Acids/Dextrose/ Fat Emulsion Intravenous 1,920 ml @ 80 mls/hr TPN CONT 10/04/19 22:00 10/05/19 21:59 DC 10/04/19 21:32 80 MLS/HR Potassium Acetate 40 meq/Magnesium Sulfate 5 meq/ Multivitamins 10 ml/Chromium/ Copper/Manganese/ Seleni/Zn 1 ml/ Insulin Human Regular 30 unit/ Total Parenteral Nutrition/Amino Acids/Dextrose/ Fat Emulsion Intravenous 1,920 ml @ 80 mls/hr TPN CONT 10/03/19 22:00 10/04/19 19:34 DC 10/03/19 21:54 80 MLS/HR Potassium Acetate 55 meq/Magnesium Sulfate 20 meq/ Calcium Gluconate 10 meq/ Multivitamins 10 ml/Chromium/ Copper/Manganese/ Seleni/Zn 0.5 ml/ Insulin Human Regular 30 unit/ Total Parenteral Nutrition/Amino Acids/Dextrose/ Fat Emulsion Intravenous 1,920 ml @ 80 mls/hr TPN CONT 08/18/19 22:00 08/19/19 21:59 DC 08/19/19 01:00 80 MLS/HR Potassium Acetate 55 meq/Magnesium Sulfate 20 meq/ Calcium Gluconate 10 meq/ Multivitamins 10 ml/Chromium/ Copper/Manganese/ Seleni/Zn 0.5 ml/ Insulin Human Regular 35 unit/ Total Parenteral Nutrition/Amino Acids/Dextrose/ Fat Emulsion Intravenous 1,920 ml @ 80 mls/hr TPN CONT 08/16/19 22:00 08/17/19 21:59 DC 08/16/19 22:02 80 MLS/HR Potassium Acetate 60 meq/Magnesium Sulfate 10 meq/ Multivitamins 10 ml/Chromium/ Copper/Manganese/ Seleni/Zn 1 ml/ Insulin Human Regular 20 unit/ Total Parenteral Nutrition/Amino Acids/Dextrose/ Fat Emulsion Intravenous 1,920 ml @ 80 mls/hr TPN CONT 10/05/19 22:00 10/06/19 21:59 DC 10/05/19 21:55 80 MLS/HR Potassium Acetate 60 meq/Magnesium Sulfate 14 meq/ Multivitamins 10 ml/Chromium/ Copper/Manganese/ Seleni/Zn 1 ml/ Insulin Human Regular 15 unit/ Sodium Chloride 20 meq/Total Parenteral Nutrition/Amino Acids/Dextrose/ Fat Emulsion Intravenous 1,920 ml @ 80 mls/hr TPN CONT 10/10/19 22:00 10/11/19 21:59 DC 10/10/19 21:54 80 MLS/HR Potassium Acetate 60 meq/Magnesium Sulfate 14 meq/ Multivitamins 10 ml/Chromium/ Copper/Manganese/ Seleni/Zn 1 ml/ Insulin Human Regular 15 unit/ Total Parenteral Nutrition/Amino Acids/Dextrose/ Fat Emulsion Intravenous 1,920 ml @ 80 mls/hr TPN CONT 10/09/19 22:00 10/10/19 21:59 DC 10/09/19 22:22 80 MLS/HR Potassium Acetate 60 meq/Magnesium Sulfate 14 meq/ Multivitamins 10 ml/Chromium/ Copper/Manganese/ Seleni/Zn 1 ml/ Insulin Human Regular 20 unit/ Total Parenteral Nutrition/Amino Acids/Dextrose/ Fat Emulsion Intravenous 1,920 ml @ 80 mls/hr TPN CONT 10/06/19 22:00 10/07/19 21:59 DC 10/06/19 22:26 80 MLS/HR Potassium Acetate 60 meq/Magnesium Sulfate 5 meq/ Multivitamins 10 ml/Chromium/ Copper/Manganese/ Seleni/Zn 1 ml/ Insulin Human Regular 30 unit/ Total Parenteral Nutrition/Amino Acids/Dextrose/ Fat Emulsion Intravenous 1,920 ml @ 80 mls/hr TPN CONT 09/24/19 22:00 09/25/19 21:59 DC 09/24/19 21:54 80 MLS/HR Potassium Acetate 65 meq/Magnesium Sulfate 20 meq/ Calcium Gluconate 10 meq/ Multivitamins 10 ml/Chromium/ Copper/Manganese/ Seleni/Zn 0.5 ml/ Insulin Human Regular 30 unit/ Total Parenteral Nutrition/Amino Acids/Dextrose/ Fat Emulsion Intravenous 1,920 ml @ 80 mls/hr TPN CONT 08/17/19 22:00 08/18/19 21:59 DC 08/17/19 22:22 80 MLS/HR Potassium Acetate 80 meq/Magnesium Sulfate 5 meq/ Multivitamins 10 ml/Chromium/ Copper/Manganese/ Seleni/Zn 1 ml/ Insulin Human Regular 20 unit/ Total Parenteral Nutrition/Amino Acids/Dextrose/ Fat Emulsion Intravenous 1,920 ml @ 80 mls/hr TPN CONT 09/23/19 22:00 09/24/19 21:59 DC 09/23/19 21:59 80 MLS/HR Prochlorperazine Edisylate (Compazine) 5 mg PACU PRN PRN 08/15/19 07:00 08/16/19 06:59 DC Propofol (Diprivan) 200 mg STK-MED ONCE 10/18/19 07:44 10/18/19 07:44 DC Ringer's Solution 1,000 ml @ 175 mls/hr [id number] 11/29/19 14:30 12/02/19 05:58 175 MLS/HR Rocuronium [place] (Zemuron) 100 mg STK-MED ONCE 10/18/19 07:44 10/18/19 07:44 DC Saliva Substitute (Biotene Moisturizing Mouth) 2 spray PRN Q15MIN PRN 09/08/19 11:00 Sevoflurane (Ultane) 60 ml STK-MED ONCE 08/15/19 12:26 08/15/19 12:27 DC Sodium Bicarbonate 150 meq/Dextrose 1,150 ml @ 75 mls/hr 1X ONCE 10/18/19 16:30 10/19/19 07:49 DC 10/18/19 20:02 75 MLS/HR Sodium Bicarbonate 50 meq/Sodium Chloride 1,050 ml @ 75 mls/hr Q14H 07/06/19 07:30 07/11/19 10:28 DC 07/10/19 21:10 75 MLS/HR Sodium Acetate 50 meq/Potassium Acetate 55 meq/ Magnesium Sulfate 20 meq/Calcium Gluconate 10 meq/ Multivitamins 10 ml/Chromium/ Copper/Manganese/ Seleni/Zn 0.5 ml/ Insulin Human Regular 35 unit/ Total Parenteral Nutrition/Amino Acids/Dextrose/ Fat Emulsion Intravenous 1,800 ml @ 75 mls/hr TPN CONT 08/13/19 22:00 08/14/19 21:59 DC 08/13/19 22:03 75 MLS/HR Sodium Bicarbonate (Sodium Bicarb Adult 8.4% Syr) 50 meq STK-MED ONCE 11/29/19 14:30 11/29/19 14:30 DC Sodium Chloride 1,000 ml @ 1,000 mls/hr 1X ONCE 12/01/19 18:00 12/01/19 18:59 DC 12/01/19 17:36 1,000 MLS/HR Sodium Chloride (Normal Saline Flush) 3 ml QSHIFT PRN 10/18/19 14:45 11/21/19 09:45 DC Sodium Chloride 80 meq/Potassium Chloride 30 meq/ Potassium Acetate 30 meq/Magnesium Sulfate 14 meq/ Multivitamins 10 ml/Chromium/ Copper/Manganese/ Seleni/Zn 1 ml/ Insulin Human Regular 15 unit/ Total Parenteral Nutrition/Amino Acids/Dextrose/ Fat Emulsion Intravenous 1,920 ml @ 80 mls/hr TPN CONT 10/19/19 22:00 10/20/19 21:59 DC 10/19/19 23:05 80 MLS/HR Sodium Chloride 90 meq/Calcium Gluconate 10 meq/ Multivitamins 10 ml/Chromium/ Copper/Manganese/ Seleni/Zn 0.5 ml/ Total Parenteral Nutrition/Amino Acids/Dextrose/ Fat Emulsion Intravenous 1,512 ml @ 63 mls/hr TPN CONT 07/06/19 22:00 07/07/19 21:59 DC 07/06/19 22:06 63 MLS/HR Sodium Chloride 90 meq/Calcium Gluconate 10 meq/ Multivitamins 10 ml/Chromium/ Copper/Manganese/ Seleni/Zn 1 ml/ Total Parenteral Nutrition/Amino Acids/Dextrose/ Fat Emulsion Intravenous 55.005 ml @ 2.292 mls/hr TPN CONT 07/06/19 22:00 07/06/19 12:33 DC Sodium Chloride 90 meq/Magnesium Sulfate 10 meq/ Calcium Gluconate 20 meq/ Multivitamins 10 ml/Chromium/ Copper/Manganese/ Seleni/Zn 0.5 ml/ Total Parenteral Nutrition/Amino Acids/Dextrose/ Fat Emulsion Intravenous 1,512 ml @ 63 mls/hr TPN CONT 07/07/19 22:00 07/08/19 21:59 DC 07/07/19 22:25 63 MLS/HR Sodium Chloride 90 meq/Magnesium Sulfate 12 meq/ Calcium Gluconate 15 meq/ Multivitamins 10 ml/Chromium/ Copper/Manganese/ Seleni/Zn 0.5 ml/ Insulin Human Regular 25 unit/ Total Parenteral Nutrition/Amino Acids/Dextrose/ Fat Emulsion Intravenous 1,400 ml @ 58.333 mls/ hr TPN CONT 07/27/19 22:00 07/28/19 21:59 DC 07/27/19 21:41 58.333 MLS/HR Sodium Chloride 90 meq/Potassium Chloride 15 meq/ Magnesium Sulfate 12 meq/Calcium Gluconate 15 meq/ Multivitamins 10 ml/Chromium/ Copper/Manganese/ Seleni/Zn 0.5 ml/ Insulin Human Regular 25 unit/ Total Parenteral Nutrition/Amino Acids/Dextrose/ Fat Emulsion Intravenous 1,400 ml @ 58.333 mls/ hr TPN CONT 07/26/19 22:00 07/27/19 21:59 DC 07/26/19 22:13 58.333 MLS/HR Sodium Chloride 90 meq/Potassium Chloride 15 meq/ Potassium Phosphate 10 mmol/ Magnesium Sulfate 8 meq/Calcium Gluconate 15 meq/ Multivitamins 10 ml/Chromium/ Copper/Manganese/ Seleni/Zn 0.5 ml/ Insulin Human Regular 25 unit/ Total Parenteral Nutrition/Amino Acids/Dextrose/ Fat Emulsion Intravenous 1,400 ml @ 58.333 mls/ hr TPN CONT 07/24/19 22:00 07/25/19 21:59 DC 07/24/19 21:20 58.333 MLS/HR Sodium Chloride 90 meq/Potassium Chloride 15 meq/ Potassium Phosphate 10 mmol/ Magnesium Sulfate 10 meq/Calcium Gluconate 20 meq/ Multivitamins 10 ml/Chromium/ Copper/Manganese/ Seleni/Zn 0.5 ml/ Total Parenteral Nutrition/Amino Acids/Dextrose/ Fat Emulsion Intravenous 1,400 ml @ 58.333 mls/ hr TPN CONT 07/11/19 22:00 07/12/19 21:59 DC 07/11/19 21:42 58.333 MLS/HR Sodium Chloride 90 meq/Potassium Chloride 15 meq/ Potassium Phosphate 10 mmol/ Magnesium Sulfate 12 meq/Calcium Gluconate 15 meq/ Multivitamins 10 ml/Chromium/ Copper/Manganese/ Seleni/Zn 0.5 ml/ Insulin Human Regular 25 unit/ Total Parenteral Nutrition/Amino Acids/Dextrose/ Fat Emulsion Intravenous 1,400 ml @ 58.333 mls/ hr TPN CONT 07/25/19 22:00 07/26/19 21:59 DC 07/25/19 22:24 58.333 MLS/HR Sodium Chloride 90 meq/Potassium Chloride 15 meq/ Potassium Phosphate 15 mmol/ Magnesium Sulfate 10 meq/Calcium Gluconate 15 meq/ Multivitamins 10 ml/Chromium/ Copper/Manganese/ Seleni/Zn 0.5 ml/ Total Parenteral Nutrition/Amino Acids/Dextrose/ Fat Emulsion Intravenous 1,400 ml @ 58.333 mls/ hr TPN CONT 07/12/19 22:00 07/13/19 21:59 DC 07/12/19 22:17 58.333 MLS/HR Sodium Chloride 90 meq/Potassium Chloride 15 meq/ Potassium Phosphate 15 mmol/ Magnesium Sulfate 10 meq/Calcium Gluconate 20 meq/ Multivitamins 10 ml/Chromium/ Copper/Manganese/ Seleni/Zn 0.5 ml/ Total Parenteral Nutrition/Amino Acids/Dextrose/ Fat Emulsion Intravenous 1,200 ml @ 50 mls/hr TPN CONT 07/10/19 22:00 07/10/19 14:17 DC Sodium Chloride 90 meq/Potassium Chloride 15 meq/ Potassium Phosphate 18 mmol/ Magnesium Sulfate 8 meq/Calcium Gluconate 15 meq/ Multivitamins 10 ml/Chromium/ Copper/Manganese/ Seleni/Zn 0.5 ml/ Insulin Human Regular 10 unit/ Total Parenteral Nutrition/Amino Acids/Dextrose/ Fat Emulsion Intravenous 1,400 ml @ 58.333 mls/ hr TPN CONT 07/15/19 22:00 07/16/19 21:59 DC 07/15/19 21:43 58.333 MLS/HR Sodium Chloride 90 meq/Potassium Chloride 15 meq/ Potassium Phosphate 18 mmol/ Magnesium Sulfate 8 meq/Calcium Gluconate 15 meq/ Multivitamins 10 ml/Chromium/ Copper/Manganese/ Seleni/Zn 0.5 ml/ Insulin Human Regular 15 unit/ Total Parenteral Nutrition/Amino Acids/Dextrose/ Fat Emulsion Intravenous 1,400 ml @ 58.333 mls/ hr TPN CONT 07/18/19 22:00 07/19/19 21:59 DC 07/18/19 21:47 58.333 MLS/HR Sodium Chloride 90 meq/Potassium Chloride 15 meq/ Potassium Phosphate 18 mmol/ Magnesium Sulfate 8 meq/Calcium Gluconate 15 meq/ Multivitamins 10 ml/Chromium/ Copper/Manganese/ Seleni/Zn 0.5 ml/ Insulin Human Regular 20 unit/ Total Parenteral Nutrition/Amino Acids/Dextrose/ Fat Emulsion Intravenous 1,400 ml @ 58.333 mls/ hr TPN CONT 07/21/19 22:00 07/22/19 21:59 DC 07/21/19 22:45 58.333 MLS/HR Sodium Chloride 90 meq/Potassium Chloride 15 meq/ Potassium Phosphate 18 mmol/ Magnesium Sulfate 8 meq/Calcium Gluconate 15 meq/ Multivitamins 10 ml/Chromium/ Copper/Manganese/ Seleni/Zn 0.5 ml/ Total Parenteral Nutrition/Amino Acids/Dextrose/ Fat Emulsion Intravenous 1,400 ml @ 58.333 mls/ hr TPN CONT 07/14/19 22:00 07/15/19 21:59 DC 07/14/19 22:00 58.333 MLS/HR Sodium Chloride 90 meq/Potassium Chloride 30 meq/ Potassium Acetate 30 meq/Magnesium Sulfate 15 meq/ Multivitamins 10 ml/Chromium/ Copper/Manganese/ Seleni/Zn 1 ml/ Insulin Human Regular 15 unit/ Total Parenteral Nutrition/Amino Acids/Dextrose/ Fat Emulsion Intravenous 1,680 ml @ 70 mls/hr TPN CONT 11/03/19 22:00 11/04/19 21:59 DC 11/03/19 22:06 70 MLS/HR Sodium Chloride 90 meq/Potassium Phosphate 15 mmol/ Magnesium Sulfate 12 meq/Calcium Gluconate 15 meq/ Multivitamins 10 ml/Chromium/ Copper/Manganese/ Seleni/Zn 0.5 ml/ Insulin Human Regular 30 unit/ Total Parenteral Nutrition/Amino Acids/Dextrose/ Fat Emulsion Intravenous 1,400 ml @ 58.333 mls/ hr TPN CONT 07/29/19 22:00 07/30/19 21:59 DC 07/29/19 21:49 58.333 MLS/HR Sodium Chloride 90 meq/Potassium Phosphate 15 mmol/ Magnesium Sulfate 12 meq/Calcium Gluconate 15 meq/ Multivitamins 10 ml/Chromium/ Copper/Manganese/ Seleni/Zn 0.5 ml/ Insulin Human Regular 40 unit/ Total Parenteral Nutrition/Amino Acids/Dextrose/ Fat Emulsion Intravenous 1,400 ml @ 58.333 mls/ hr TPN CONT 07/30/19 22:00 07/31/19 21:59 DC 07/30/19 21:21 58.333 MLS/HR Sodium Chloride 90 meq/Potassium Phosphate 19 mmol/ Magnesium Sulfate 12 meq/Calcium Gluconate 15 meq/ Multivitamins 10 ml/Chromium/ Copper/Manganese/ Seleni/Zn 0.5 ml/ Insulin Human Regular 40 unit/ Total Parenteral Nutrition/Amino Acids/Dextrose/ Fat Emulsion Intravenous 1,400 ml @ 58.333 mls/ hr TPN CONT 07/31/19 22:00 08/01/19 21:59 DC 07/31/19 21:54 58.333 MLS/HR Sodium Chloride 90 meq/Potassium Phosphate 5 mmol/ Magnesium Sulfate 12 meq/Calcium Gluconate 15 meq/ Multivitamins 10 ml/Chromium/ Copper/Manganese/ Seleni/Zn 0.5 ml/ Insulin Human Regular 30 unit/ Total Parenteral Nutrition/Amino Acids/Dextrose/ Fat Emulsion Intravenous 1,400 ml @ 58.333 mls/ hr TPN CONT 07/28/19 22:00 07/29/19 21:59 DC 07/28/19 22:08 58.333 MLS/HR Sodium Chloride 100 meq/Potassium Chloride 30 meq/ Potassium Acetate 30 meq/Magnesium Sulfate 12 meq/ Multivitamins 10 ml/Chromium/ Copper/Manganese/ Seleni/Zn 1 ml/ Insulin Human Regular 15 unit/ Total Parenteral Nutrition/Amino Acids/Dextrose/ Fat Emulsion Intravenous 1,680 ml @ 70 mls/hr TPN CONT 10/23/19 22:00 10/24/19 21:59 DC 10/23/19 21:23 70 MLS/HR Sodium Chloride 100 meq/Potassium Chloride 40 meq/ Magnesium Sulfate 15 meq/Calcium Gluconate 15 meq/ Multivitamins 10 ml/Chromium/ Copper/Manganese/ Seleni/Zn 0.5 ml/ Insulin Human Regular 35 unit/ Total Parenteral Nutrition/Amino Acids/Dextrose/ Fat Emulsion Intravenous 1,400 ml @ 58.333 mls/ hr TPN CONT 08/07/19 22:00 08/08/19 21:59 DC 08/07/19 22:46 58.333 MLS/HR Sodium Chloride 100 meq/Potassium Chloride 40 meq/ Magnesium Sulfate 20 meq/Calcium Gluconate 10 meq/ Multivitamins 10 ml/Chromium/ Copper/Manganese/ Seleni/Zn 0.5 ml/ Insulin Human Regular 35 unit/ Total Parenteral Nutrition/Amino Acids/Dextrose/ Fat Emulsion Intravenous 1,400 ml @ 58.333 mls/ hr TPN CONT 08/11/19 22:00 08/12/19 21:59 DC 08/12/19 00:06 58.333 MLS/HR Sodium Chloride 100 meq/Potassium Chloride 40 meq/ Magnesium Sulfate 20 meq/Calcium Gluconate 15 meq/ Multivitamins 10 ml/Chromium/ Copper/Manganese/ Seleni/Zn 0.5 ml/ Insulin Human Regular 35 unit/ Total Parenteral Nutrition/Amino Acids/Dextrose/ Fat Emulsion Intravenous 1,400 ml @ 58.333 mls/ hr TPN CONT 08/10/19 22:00 08/11/19 21:59 DC 08/10/19 22:27 58.333 MLS/HR Sodium Chloride 100 meq/Potassium Phosphate 10 mmol/ Magnesium Sulfate 12 meq/Calcium Gluconate 15 meq/ Multivitamins 10 ml/Chromium/ Copper/Manganese/ Seleni/Zn 0.5 ml/ Insulin Human Regular 35 unit/ Potassium Chloride 20 meq/ Total Parenteral Nutrition/Amino Acids/Dextrose/ Fat Emulsion Intravenous 1,400 ml @ 58.333 mls/ hr TPN CONT 08/04/19 22:00 08/05/19 21:59 DC 08/04/19 22:10 58.333 MLS/HR Sodium Chloride 100 meq/Potassium Phosphate 19 mmol/ Magnesium Sulfate 12 meq/Calcium Gluconate 15 meq/ Multivitamins 10 ml/Chromium/ Copper/Manganese/ Seleni/Zn 0.5 ml/ Insulin Human Regular 40 unit/ Potassium Chloride 20 meq/ Total Parenteral Nutrition/Amino Acids/Dextrose/ Fat Emulsion Intravenous 1,400 ml @ 58.333 mls/ hr TPN CONT 08/03/19 22:00 08/04/19 21:59 DC 08/03/19 21:20 58.333 MLS/HR Sodium Chloride 100 meq/Potassium Phosphate 5 mmol/ Magnesium Sulfate 12 meq/Calcium Gluconate 15 meq/ Multivitamins 10 ml/Chromium/ Copper/Manganese/ Seleni/Zn 0.5 ml/ Insulin Human Regular 35 unit/ Potassium Chloride 20 meq/ Total Parenteral Nutrition/Amino Acids/Dextrose/ Fat Emulsion Intravenous 1,400 ml @ 58.333 mls/ hr TPN CONT 08/05/19 22:00 08/06/19 21:59 DC 08/05/19 22:59 58.333 MLS/HR Sodium Chloride 110 meq/Potassium Chloride 30 meq/ Potassium Acetate 30 meq/Magnesium Sulfate 15 meq/ Multivitamins 10 ml/Chromium/ Copper/Manganese/ Seleni/Zn 1 ml/ Insulin Human Regular 15 unit/ Total Parenteral Nutrition/Amino Acids/Dextrose/ Fat Emulsion Intravenous 1,680 ml @ 70 mls/hr TPN CONT 11/05/19 22:00 11/06/19 21:59 DC 11/05/19 22:01 70 MLS/HR Sodium Chloride 110 meq/Sodium Phosphate 10 mmol/ Potassium Chloride 30 meq/ Potassium Acetate 30 meq/Magnesium Sulfate 15 meq/ Multivitamins 10 ml/Chromium/ Copper/Manganese/ Seleni/Zn 1 ml/ Insulin Human Regular 15 unit/ Total Parenteral Nutrition/Amino Acids/Dextrose/ Fat Emulsion Intravenous 1,680 ml @ 70 mls/hr TPN CONT 11/06/19 22:00 11/07/19 21:59 DC 11/06/19 22:03 70 MLS/HR Sodium Chloride 120 meq/Sodium Phosphate 10 mmol/ Potassium Chloride 30 meq/ Potassium Acetate 30 meq/Magnesium Sulfate 15 meq/ Multivitamins 10 ml/Chromium/ Copper/Manganese/ Seleni/Zn 1 ml/ Insulin Human Regular 15 unit/ Total Parenteral Nutrition/Amino Acids/Dextrose/ Fat Emulsion Intravenous 1,680 ml @ 70 mls/hr TPN CONT 11/13/19 22:00 11/14/19 21:59 Cancel Succinylcholine Chloride (Anectine) 120 mg 1X ONCE 07/11/19 08:30 07/11/19 08:31 DC 07/11/19 08:34 120 MG Vancomycin HCl (Vanco Per Pharmacy) 1 each PRN DAILY PRN 10/30/19 09:15 11/02/19 07:41 DC 11/01/19 02:46 1 EACH Vancomycin HCl (Vancomycin Random Level) 1 each 1X ONCE 11/01/19 01:00 11/01/19 01:01 DC 11/01/19 01:00 1 EACH Vancomycin HCl (Vancomycin Trough Level) 1 each 1X ONCE 11/02/19 09:30 11/02/19 09:31 Cancel Vancomycin HCl 1.5 gm/Sodium Chloride 500 ml @ 250 mls/hr Q12H 11/01/19 10:00 11/02/19 07:41 DC 11/01/19 22:07 250 MLS/HR Vancomycin HCl 2 gm/Sodium Chloride 500 ml @ 250 mls/hr 1X ONCE 10/30/19 10:00 10/30/19 11:59 DC 10/30/19 10:34 250 MLS/HR Vasopressin (Vasostrict) 20 unit STK-MED ONCE 10/18/19 12:23 10/18/19 12:23 DC Vasopressin 20 unit/Dextrose 101 ml @ 12 mls/hr CONT PRN 10/18/19 15:30 11/21/19 09:45 DC 10/25/19 04:17 12 MLS/HR Vecuronium [place] (Norcuron Bolus) 6 mg PRN Q6HRS PRN 08/25/19 19:15 08/25/19 19:35 DC Vitamin A/Vitamin D (Vitamin A & D Ointment) 1 ramu PRN Q1HR PRN 11/22/19 09:15 12/01/19 08:36 1 RAMU Zoledronic Acid 100 ml @ 400 mls/hr 1X ONCE 11/25/19 12:00 11/25/19 12:14 DC 11/25/19 13:04 400 MLS/HR Labs: Lab Laboratory Tests Test 12/01/19 11:14 12/01/19 17:51 12/01/19 22:54 12/02/19 07:22 Glucose (Fingerstick) 144 mg/dL (70-99) 167 mg/dL (70-99) 150 mg/dL (70-99) 205 mg/dL (70-99) Micro NEG ALEXANDRA 56 PSEUDOMONAS AERUGINOSA ANTIBIOTIC RESULT INTERPRETATION AMIKACIN <=16 S AZTREONAM >16 R CEFTAZIDIME >16 R CIPROFLOXACIN <=0.25 S CEFEPIME 16 I GENTAMICIN <=2 S LEVOFLOXACIN <=0.5 S CONTINUED ON NEXT PAGE RUN DATE: 09/28/19 [facility] *LIVE* PAGE 2 RUN TIME: 1121 Specimen Inquiry SPEC: [id number] PATIENT: SCOTT CUELLAR [id number] (Continued) Procedure Result ANTIMICROBIAL SUSCEPTIBILITY Preliminary (continued) MEROPENEM <=1 S PIPERACILLIN/TAZOBACTAM 64 S TOBRAMYCIN <=2 S Unless otherwise specified, Testing Performed by: [address] [address] For Inquires, the Physician may contact the Microbiology department at [phone] Objective: Assessment: Patient with prolonged hospitalization more than 4 months Multiple medical problems Multiple surgical procedures Intermittent fevers now improving S/P Exp. SAURABH Parisi chole, G-J tube & pancreatic necrosectomy on 10/17, C. parapsilosis & PSAE (I-merrem/ceftazidime/AZT/cefepime)) Leukocytosis - better Loose stool on tube feed - WBC down and no gross fever Anemia Acute gallstone pancreatitis with persistent necrosis - 07/27. CT A/P Increased ascites. 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 status post KAYLIN drain placement; C. parapsilosis. s/p drain 08/23 + yeast & high amylase; s/p additional drain on 08/25. Drains removed. -08/23. fluid devyn parapsilosis fluid, amylase high - 09/23 showed multiple pseudocysts, slight larger on the right. s/p drains x 3, 09/24. + PSAE (MDRO-R Cefepime, Zosyn ALEXANDRA < 64) and yeast, -09/24 s/p drain replacement x 3; fluid cult PSAE (MDRO), yeast; treated -10/29 CT A/P shows smaller fluid collections. -722 CT abdomen and pelvis drains in place Ascites s/p paracentesis 08/02 & 08/23. C. parapsilosis Cholelithiasis with thickening of the gallbladder wall. JUANA, Hyperkalemia, Metabolic acidosis off dialysis Acute hypoxic resp failure. trach/vent. 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 difficile negative Plan: Plan of Care Continue cefepime, renal dosing as needed and flagyl 11/27, C diff neg 11/29 BC negative so far Follow-up cultures and monitor labs Lind changed 11/28 Nystatin to groin Right upper extremity PICC line placed 11/17 Wound care /drain management as directed Contact isolation for CRE/MDRO MCC prognosis poor D/w nursing YUNIOR JONES MD Dec 02, 2019 08:06
[2019-12-02] MEDS: MULTIVITAMINS,THERAPEUTIC 5 ML ORAL LIQUID. PEG SCH (08:40)
[2019-12-02] MEDS: PANTOPRAZOLE IV PUSH 40 MG VIAL. IVP SCH (08:40)
--- NOTE | 2019-12-02 10:51 | PDOC ---
PULMONARY PROGRESS NOTES DATE: 12/02/19 TIME: 10:49 Subjective Pt. remains weak, now on 2 liters N/C Trach in place Low HGB recently 7.0 on 12/01/2019 Vitals Vital Signs Date Time Temp Pulse Resp B/P (MAP) Pulse Ox O2 Delivery O2 Flow Rate FiO2 12/02/19 08:10 98 Nasal Cannula 2.0 12/02/19 07:00 97.5 117 28 102/55 (71) 97.5 ROS: No Nausea, No Chest Pain, No Abdominal Pain, No Increase Cough General: Alert, No acute distress Lungs: Clear Cardiovascular: S1, S2 Abdomen: Soft, Non-tender, Other (multiple KAYLIN drains ) Neuro Exam: Alert Extremities: Other (+1 BLE edema) Skin: Warm Labs Laboratory Tests Test 11/30/19 11:59 11/30/19 17:40 12/01/19 00:26 12/01/19 04:30 Glucose (Fingerstick) 126 mg/dL (70-99) 156 mg/dL (70-99) 157 mg/dL (70-99) White Blood Count 12.2 x10^3/uL (4.0-11.0) Red Blood Count 2.58 x10^6/uL (3.50-5.40) Hemoglobin 7.0 g/dL (12.0-15.5) Hematocrit 23.4 % (36.0-47.0) Mean Corpuscular Volume 91 fL (79-100) Mean Corpuscular Hemoglobin 27 pg (25-35) Mean Corpuscular Hemoglobin Concent 30 g/dL (31-37) Red Cell Distribution Width 20.5 % (11.5-14.5) Platelet Count 394 x10^3/uL (140-400) Sodium Level 151 mmol/L (136-145) Potassium Level 4.1 mmol/L (3.5-5.1) Chloride Level 119 mmol/L (98-107) Carbon Dioxide Level 21 mmol/L (21-32) Anion Gap 11 (6-14) Blood Urea Nitrogen 75 mg/dL (7-20) Creatinine 2.0 mg/dL (0.6-1.0) Estimated GFR (Cockcroft-Gault) 26.5 Glucose Level 164 mg/dL (70-99) Calcium Level 7.0 mg/dL (8.5-10.1) Test 12/01/19 06:58 12/01/19 11:14 12/01/19 17:51 12/01/19 22:54 Glucose (Fingerstick) 192 mg/dL (70-99) 144 mg/dL (70-99) 167 mg/dL (70-99) 150 mg/dL (70-99) Test 12/02/19 07:22 Glucose (Fingerstick) 205 mg/dL (70-99) Laboratory Tests Test 12/01/19 11:14 12/01/19 17:51 12/01/19 22:54 12/02/19 07:22 Glucose (Fingerstick) 144 mg/dL (70-99) 167 mg/dL (70-99) 150 mg/dL (70-99) 205 mg/dL (70-99) Medications Active Scripts Medications Dose Route/Sig Max Daily Dose Days Date Category Bisoprolol Fumarate 5 Mg Tablet 10 Mg PO DAILY 07/04/[address] reviewed 10/30/19, Decreased left-sided effusion after catheter placement. The right-sided effusion has increased as has atelectasis. There has been exchange or placement of multiple drainage tubes and a gastrojejunostomy tube. Both collections are smaller. No significant new abdominal fluid collection is seen. The jejunal component of the gastrojejunostomy tube appears to be looped in the proximal small bowel. ct abdomen /pelvis 09/23 1. Removal of the percutaneous pigtail drainage catheters since the prior exam. Sequela of pancreatitis with extensive pseudocysts again demonstrated, the right-sided collections are slightly larger since the prior exam, the left-sided collections are stable. See above. 2. Moderate to large left pleural effusion with atelectasis and collapse of most of the left lower lobe, stable. Small right pleural effusion is stable. 3. Gallstone. ct chest 10/02 reviewed GRAM NEG COCCOBACILLI:MANY SQUAMOUS EPI CELL:RARE PMN (WBCs):FEW Unless otherwise specified, Testing Performed by: [address] [address] For Inquires, the Physician may contact the Microbiology department at [phone] RESPIRATORY CULTURE Final Final MANY GRAM NEGATIVE RODS on 10/03/19 at 1109 FINAL ID= [[email or web address]] MICRO CHARGES PSEUDOMONAS AERUGINOSA ANTIMICROBIAL SUSCEPTIBILITY Final Comment NEG ALEXANDRA 56 PSEUDOMONAS AERUGINOSA ANTIBIOTIC RESULT INTERPRETATION AMIKACIN <=16 S AZTREONAM <=4 S CEFTAZIDIME <=1 S CIPROFLOXACIN <=0.25 S CEFEPIME <=2 S CEFTAZIDIME/AVIBACTAM <=4 S GENTAMICIN <=2 S LEVOFLOXACIN <=0.5 S Impression . IMPRESSION: 1. Acute hypoxemic respiratory failure secondary to ARDS status post trach, developed anemia 09/24, blood drainage from RLQ abdomen drain site, and surrounding firmness / developed septic shock 09/24 from abdomen source, required levo 09/24-- now on 2 liters with trach s/p 3 new drains 09/24 with brown color drainage, --- off pressors S/P Exp. 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 parapsilosis & PSAE (I-merrem/ceftazidime/AZT/cefepime)) Increase R/R, hr 11/28. RESPONDED TO BICARB/ PRN SUCTION Acute gallstone pancreatitis with persistent necrosis - 07/27. CT A/P Increased ascites. Persistent evidence of necrotizing pancre atitis with fluid and phlegmon at the pancreas - 08/14. status post KAYLIN drain placement; C. parapsilosis. s/p drain 08/23 + yeast & high amylase; s/p additional drain on 08/25. Drains removed. -08/23. fluid devyn parapsilosis fluid, amylase high - 09/23 showed multiple pseudocysts, slight larger on the right. s/p drains x 3, 09/24. + PSAE (MDRO-R Cefepime, Zosyn ALEXANDRA < 64) and yeast, -09/24 s/p drain replacement x 3; fluid cult PSAE (MDRO), yeast; treated -10/29 CT A/P shows smaller fluid collections. -722 CT abdomen and pelvis drains in place Ascites s/p paracentesis 08/02 & 08/23. C. parapsilosis Cholelithiasis with thickening of the gallbladder wall. JUANA, Hyperkalemia, Metabolic acidosis off dialysis Acute hypoxic resp failure. trach/vent. sputum 09/30 + PSAE (I merrem) ; sputum culture November 05+ for PSAE R Merrem, sensitive to cefepime Pleural effusion status post CTS left side Abdominal fluid culture MDRO Pseudomonas, yeast Sputum culture positive 11/05 for MDRO Pseudomonas Chest tube fluid positive for 11/07 Devyn Parapsilosis S/P Exploratory laparotomy, lysis of adhesions, subtotal cholecystectomy with cholangiogram, gastrojejunostomy tube placement, pancreatic necrosectomy Plan . Remains weak, now on 2 liters N/C, required suctioning from nursing overnight prn suction Transfuse as needed, monitor HGB was 7.0 as of 12/01/19 Antibiotics per ID, Up to chair, PT/OT Follow surgery input-- DVT GI prophylaxis DVT/GI PPX Will see PRN call with any concerns VINAYAK LANDRUM MD Dec 02, 2019 10:51
[2019-12-02 11:00] VITALS: BP 96/56
--- NOTE | 2019-12-02 11:42 | NUR ---
SS following up with discharge planning. SS reviewed pt chart and discussed with pt RN. Pt currently requiring oxygen. Pt has trach and tube feeds. Pt has louis. Max assist with PT/OT. Pt on IV Cefepime and IV Flagyl. Pt continues to have drainage out of drain sites. Med Assist continuing to attempt to work with family for needed financial documents. APS investigating social situation. SS will continue to follow for discharge planning.
--- NOTE | 2019-12-02 12:40 | PDOC ---
Date of Service: DATE: 12/02/19 TIME: 12:37 Objective: Objective: D/w nurse - lots of liquid stools, runs off bed. ?new sites of drainage Leaned back in bed - gagging, maybe some green emesis. Vital Signs: Vital Signs Date Time Temp Pulse Resp B/P (MAP) Pulse Ox O2 Delivery O2 Flow Rate FiO2 12/02/19 12:11 98 Nasal Cannula 2.0 12/02/19 11:00 97.0 113 26 96/56 (69) 97.0 Labs: Laboratory Tests Test 12/01/19 17:51 12/01/19 22:54 12/02/19 07:22 12/02/19 12:11 Glucose (Fingerstick) 167 mg/dL 150 mg/dL 205 mg/dL 208 mg/dL BLOOD CULTURE Preliminary NO GROWTH AFTER 4 DAYS C Diff negative PE: GEN: chronically ill LUNGS: RT present A/P: S/p pancreatic necrosectomy Loose stools -- Will review w/ Dr. Weber. Justicifation of Admission Dx: Justifications for Admission: Justification of Admission Dx: Yes CYNDEE FALCON Dec 02, 2019 12:40
--- NOTE | 2019-12-02 12:55 | PDOC ---
PROGRESS NOTES Date of Service: DATE: 12/02/19 TIME: 12:51 Chief Complaint Chief Complaint S/P Exp. 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 parapsilosis & PSAE 11/12 (I-merrem/ceftazidime/AZT/cefepime)) Leucocytosis Fevers, intermittent Acute gallstone pancreatitis with persistent necrosis Acute hypoxic Respiratory failure required mechanical ventilation Tracheostomy Bilateral pleural effusions/pulm edema s/p Throacentesis on 10/03/2019 HTN Intractable pain Intractable nausea Covid 19 negative Acute on chronic anemia Abd distention - U/S and CT reviewed s/p 0.4 L of opaque, debris-containing ascites was removed 08/23 Gallstone pancreatitis with necrosis. -CT A/P 09/23 showed multiple pseudocysts, slight larger on the right. s/p drains x 3, 09/24. + PSAE (MDRO-R Cefepime, Zosyn ALEXANDRA < 64) and yeast, -s/p drain 08/14. C. parapsilosis. s/p drain 08/23 + yeast & high amylase; s/p additional drain on 08/25. Drains removed. Ascites s/p paracentesis 08/02 & 08/23. C. parapsilosis JUANA. off HD. A large fluid collection in the pancreatic bed has slightly decreased in size, described below, the pancreas itself is difficult to visualize, which could be due to necrosis or obscuration of pancreatic parenchyma from the surrounding fluid collection.10/02 - 08/14 status post KAYLIN drain placement + C paropsilosis. s/p additional drains 08/25 Hypocalcemia Prediabetes s/p trach Hyperglycemia Severe protein-caloric malnutrition Extensive retroperitoneal fluid collections persist. Percutaneous drains remain within the collections in both paracolic gutters. These communicate with additional pelvic and peripancreatic collections. History of Present Illness History of Present Illness 12/01 Will check Hb/Hct levels today in response to prbc; patient largely nonverbal but denies pain 11/30, increased IV fluid, cont current bolusing daily , LR increased cr better, Hgb worse today, will give 1 u PRBC 11/29. pain in legs, BP better, some better Urine outptu 11/28. dyspnea and mild distress worsened this AM. but was able to walk some with PT later. still HR 140 sometimes, 11/28/2019 Patient seen and examined Afebrile Resting in NAD Tachycardic and tachypneic overnight Recurring leukocytosis, 23.0 Chart reviewed Discussed with RN 11/26: Afebrile. Calcium down to 10.1. Little more tachycardic today with some more secretions. No O2 requirements. Does not wish to wear her speaking valve. Will check CXR. 11/25: Afebrile, weak, having more secretions not wearing a speaking valve today. WBC 10, Hb 8.8, NA 144, and K3.7, BUN 12, CR 0.5, calcium down to 10.3. After zoledronic acid 11/24: Had a rash after calcitonin injection. Discussed with nephrology with her calcium moving from 11.3-10.9 will give IV bisphosphonate today, zoledronic acid. 11/23: Hb stable. Afebrile. Weak. Calcium increased. Shortness of breath is improving. Plan for calcitonin today, lasix, and saline 11/22: Hemoglobin abnormally low on repeat has been stable 7.2. Calcium up to 10.9. She is able to work with PT, she is asking to eat. Social work is been having difficulties with both of her daughters completing the financial aspect of disability paperwork which is been prolonging her stay over the past 5 months. Plan to check PTH and to treat hypercalcemia with 1 L normal saline 40 mg of IV Lasix and repeat labs in a.m. 11/21: Not wishing to wear her speaking valve. J tube having some difficulties. Afebrile. Jamaal bedside to aid her. transferred from ICU today 11/20: No overnight events. Calcium 10.7 on AM labs. She is still a bit slow to to respond, but follows commands well. Does not want speaking valve with me. Pain is better controlled in her abdomen. Wound care to see today. Will check liver function and phos levels given her calcium elevation. 11/19: Patient seen and examined bedside. Positive fluid balance in the past 24 hours. Patient's chart, labs, images were reviewed and discussed with RN 11/18: No acute events overnight. Seen and examined at bedside. Patient had a fever 100.2. Negative fluid balance of 150 cc. Patient's chart, labs, images were reviewed and discussed with RN 11/17: Patient seen and examined at bedside. No acute events overnight. Positive fluid balance 633. Patient's chart, labs, images were reviewed and discussed with RN 11/16: Patient seen and examined bedside. No acute events overnight. Patient's chart, labs, images were reviewed and discussed with RN 11/14: Patient seen and examined bedside. Patient appears to be in no obvious pain. All drains have been adequately draining. Patient continues to be on TPN. Chart labs and imaging was reviewed. Negative fluid balance of 270 cc 11/13:Patient seen and examined in the ICU. Patient still requires extensive care. 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 Chart, labs, imaging was reviewed. UOP with + 500cc balance. 11/11: Patient seen in and examined in the ICU. She is still extremely critically ill. Appears weak, frail, and pale. Better color today with improved eye contact and expression. Discussed with RN. Chart reviewed 11/07: Patient seen and examined in the ICU, She is still extremely critically ill, Appears extremely weak frail and pale, Discussed with RN, Chart reviewed Vitals Vitals Vital Signs Date Time Temp Pulse Resp B/P (MAP) Pulse Ox O2 Delivery O2 Flow Rate FiO2 12/02/19 12:11 98 Nasal Cannula 2.0 12/02/19 11:00 97.0 113 26 96/56 (69) 97.0 Physical Exam Physical Exam GENERAL: Resting in bed, NAD HEENT: Pupils equal, oral cavity dry. OC/Op - Dry NECK: Tracheostomy capped LUNGS: Diminished aeration bases, HEART: S1, S2, ABDOMEN: Less distended, mild- bowel sounds hypoactive, soft, GJ drain present, drainage bag in place with depedent drainage : Lind in place EXTREMITIES: Trace generalized edema, no cyanosis. Yeast in groin area SKIN: warm touch. No signs of rash. NEURO: - Alert and responsive RUE PICC site without signs of complications. PIV s clean EC fistula General: Cooperative, mild distress Heart: Normal S1, Normal S2, Other Lungs: Clear Abdomen: Normal bowel sounds, Soft, No tenderness Extremities: No clubbing, No cyanosis, Other (Diffuse edema) Skin: No breakdown Labs LABS Laboratory Tests Test 12/01/19 17:51 12/01/19 22:54 12/02/19 07:22 12/02/19 12:11 Glucose (Fingerstick) 167 mg/dL (70-99) 150 mg/dL (70-99) 205 mg/dL (70-99) 208 mg/dL (70-99) Assessment and Plan Assessmemt and Plan Problems Medical Problems: (1) Acute pancreatitis Status: Acute (2) Cholelithiasis Status: Acute Comment Review of Relevant I have reviewed the following items kolby (where applicable) has been applied. Labs Laboratory Tests Test 11/30/19 17:40 12/01/19 00:26 12/01/19 04:30 12/01/19 06:58 Glucose (Fingerstick) 156 mg/dL (70-99) 157 mg/dL (70-99) 192 mg/dL (70-99) White Blood Count 12.2 x10^3/uL (4.0-11.0) Red Blood Count 2.58 x10^6/uL (3.50-5.40) Hemoglobin 7.0 g/dL (12.0-15.5) Hematocrit 23.4 % (36.0-47.0) Mean Corpuscular Volume 91 fL (79-100) Mean Corpuscular Hemoglobin 27 pg (25-35) Mean Corpuscular Hemoglobin Concent 30 g/dL (31-37) Red Cell Distribution Width 20.5 % (11.5-14.5) Platelet Count 394 x10^3/uL (140-400) Sodium Level 151 mmol/L (136-145) Potassium Level 4.1 mmol/L (3.5-5.1) Chloride Level 119 mmol/L (98-107) Carbon Dioxide Level 21 mmol/L (21-32) Anion Gap 11 (6-14) Blood Urea Nitrogen 75 mg/dL (7-20) Creatinine 2.0 mg/dL (0.6-1.0) Estimated GFR (Cockcroft-Gault) 26.5 Glucose Level 164 mg/dL (70-99) Calcium Level 7.0 mg/dL (8.5-10.1) Test 12/01/19 11:14 12/01/19 17:51 12/01/19 22:54 12/02/19 07:22 Glucose (Fingerstick) 144 mg/dL (70-99) 167 mg/dL (70-99) 150 mg/dL (70-99) 205 mg/dL (70-99) Test 12/02/19 12:11 Glucose (Fingerstick) 208 mg/dL (70-99) Laboratory Tests Test 12/01/19 17:51 12/01/19 22:54 12/02/19 07:22 12/02/19 12:11 Glucose (Fingerstick) 167 mg/dL (70-99) 150 mg/dL (70-99) 205 mg/dL (70-99) 208 mg/dL (70-99) Microbiology 11/28/19 Urine Culture - Final, Complete 11/28/19 Blood Culture - Preliminary, Resulted NO GROWTH AFTER 4 DAYS 11/13/19 Gram Stain - Final, Complete 11/13/19 Aerobic Culture - Final, Complete 11/08/19 Gram Stain - Final, Complete 11/08/19 Aerobic and Anaerobic Culture - Final, Complete 11/06/19 Gram Stain Evaluation - Final, Complete 11/06/19 Respiratory Culture - Final, Complete 11/06/19 Antimicrobic Susceptibility - Final, Complete 10/18/19 Gram Stain - Final, Complete 10/18/19 Aerobic and Anaerobic Culture - Final, Complete 10/18/19 Antimicrobic Susceptibility - Final, Complete Medications Current Medications Sodium Chloride 1,000 ml @ 1,000 mls/hr Q1H IV Last administered on 07/04/19at 03:00; Start 07/04/19 at 03:00; Stop 07/04/19 at 03:59; Status DC Ondansetron HCl (Zofran) 4 mg 1X ONCE IVP Last administered on 07/04/19at 03:27; Start 07/04/19 at 03:00; Stop 07/04/19 at 03:01; Status DC Morphine Sulfate (Morphine Sulfate) 4 mg 1X ONCE IV ; Start 07/04/19 at 03:00; Stop 07/04/19 at 03:01; Status Cancel Ketorolac Tromethamine (Toradol 30mg Vial) 30 mg 1X ONCE IV Last administered on 07/04/19at 02:54; Start 07/04/19 at 03:00; Stop 07/04/19 at 03:01; Status DC Fentanyl Citrate (Fentanyl 2ml Vial) 25 mcg 1X ONCE IVP Last administered on 07/04/19at 03:23; Start 07/04/19 at 03:30; Stop 07/04/19 at 03:31; Status DC Fentanyl Citrate (Fentanyl 2ml Vial) 100 mcg STK-MED ONCE .ROUTE ; Start 07/04/19 at 03:18; Stop 07/04/19 at 03:18; Status DC Iohexol (Omnipaque 350 Mg/ml) 90 ml 1X ONCE IV Last administered on 07/04/19at 03:25; Start 07/04/19 at 03:30; Stop 07/04/19 at 03:31; Status DC Info (CONTRAST GIVEN -- Rx MONITORING) 1 each PRN DAILY PRN MC SEE COMMENTS; Start 07/04/19 at 03:30; Stop 07/06/19 at 03:29; Status DC Hydromorphone HCl (Dilaudid) 0.5 mg 1X ONCE IV Last administered on 07/04/19at 03:55; Start 07/04/19 at 04:30; Stop 07/04/19 at 04:32; Status DC Ondansetron HCl (Zofran) 4 mg PRN Q8HRS PRN IV NAUSEA/VOMITING 1ST CHOICE; Start 07/04/19 at 05:00; Stop 07/04/19 at 09:27; Status DC Morphine Sulfate (Morphine Sulfate) 2 mg PRN Q2HR PRN IV SEVERE PAIN 7-10 Last administered on 07/05/19at 12:26; Start 07/04/19 at 05:00; Stop 07/05/19 at 14:15; Status DC Sodium Chloride 1,000 ml @ 125 mls/hr Q8H IV Last administered on 07/04/19at 20:56; Start 07/04/19 at 05:00; Stop 07/05/19 at 04:59; Status DC Hydromorphone HCl (Dilaudid) 0.5 mg PRN Q3HRS PRN IV SEVERE PAIN 7-10 Last administered on 07/05/19at 10:06; Start 07/04/19 at 05:00; Stop 07/05/19 at 12:01; Status DC Piperacillin Sod/ Tazobactam Sod 4.5 gm/Sodium Chloride 100 ml @ 200 mls/hr 1X ONCE IV Last administered on 07/04/19at 05:44; Start 07/04/19 at 06:00; Stop 07/04/19 at 06:29; Status DC Ondansetron HCl (Zofran) 4 mg PRN Q4HRS PRN IV NAUSEA/VOMITING 1ST CHOICE Last administered on 11/30/19at 12:43; Start 07/04/19 at 09:30 Insulin Human Lispro (HumaLOG) 0-9 UNITS Q6HRS SQ Last administered on 12/02/19at 12:43; Start 07/04/19 at 09:30 Dextrose (Dextrose 50%-Water Syringe) 12.5 gm PRN Q15MIN PRN IV SEE COMMENTS; Start 07/04/19 at 09:30 Pantoprazole Sodium (PROTONIX VIAL for IV PUSH) 40 mg DAILYAC IVP Last administered on 12/02/19at 08:40; Start 07/04/19 at 11:30 Prochlorperazine Edisylate (Compazine) 10 mg PRN Q6HRS PRN IV NAUSEA/VOMITING, 2nd CHOICE Last administered on 11/28/19at 00:42; Start 07/04/19 at 17:45 Atenolol (Tenormin) 100 mg DAILY PO ; Start 07/05/19 at 09:00; Stop 07/04/19 at 20:08; Status DC Metoprolol Tartrate (Lopressor Vial) 2.5 mg Q6HRS IVP Last administered on 07/05/19at 05:51; Start 07/04/19 at 20:15; Stop 07/05/19 at 10:02; Status DC Metoprolol Tartrate (Lopressor Vial) 5 mg Q6HRS IVP Last administered on 07/14/19at 00:12; Start 07/05/19 at 10:15; Stop 07/16/19 at 08:48; Status DC Hydromorphone HCl (Dilaudid) 1 mg PRN Q3HRS PRN IV SEVERE PAIN 7-10 Last administered on 07/11/19at 05:13; Start 07/05/19 at 12:00; Stop 07/19/19 at 00:25; Status DC Lidocaine HCl (Buffered Lidocaine 1%) 3 ml STK-MED ONCE .ROUTE ; Start 07/05/19 at 12:55; Stop 07/05/19 at 12:56; Status DC Albumin Human 500 ml @ 125 mls/hr 1X ONCE IV Last administered on 07/05/19at 14:33; Start 07/05/19 at 14:30; Stop 07/05/19 at 18:32; Status DC Norepinephrine Bitartrate 8 mg/ Dextrose 258 ml @ 17.299 mls/ hr CONT PRN IV PER PROTOCOL Last administered on 08/02/19at 12:48; Start 07/05/19 at 15:30; Stop 08/05/19 at 09:19; Status DC Sodium Chloride 1,000 ml @ 125 mls/hr Q8H IV Last administered on 07/05/19at 21:04; Start 07/05/19 at 16:00; Stop 07/06/19 at 02:42; Status DC Albumin Human 500 ml @ 125 mls/hr PRN BID PRN IV After every 2L NSS & BP < 90mm Last administered on 10/18/19at 16:06; Start 07/05/19 at 16:00; Stop 10/21/19 at 09:30; Status DC Iohexol (Omnipaque 300 Mg/ml) 60 ml 1X ONCE IV Last administered on 07/05/19at 17:20; Start 07/05/19 at 17:00; Stop 07/05/19 at 17:01; Status DC Info (CONTRAST GIVEN -- Rx MONITORING) 1 each PRN DAILY PRN MC SEE COMMENTS; Start 07/05/19 at 17:00; Stop 07/07/19 at 16:59; Status DC Meropenem 1 gm/ Sodium Chloride 100 ml @ 200 mls/hr Q8HRS IV Last administered on 07/06/19at 05:45; Start 07/05/19 at 20:00; Stop 07/06/19 at 08:48; Status DC Furosemide (Lasix) 40 mg 1X ONCE IVP Last administered on 07/05/19at 22:12; Start 07/05/19 at 22:30; Stop 07/05/19 at 22:31; Status DC Calcium Chloride 1000 mg/Sodium Chloride 110 ml @ 220 mls/hr 1X ONCE IV Last administered on 07/05/19at 22:11; Start 07/05/19 at 22:30; Stop 07/05/19 at 22:59; Status DC Albuterol Sulfate (Ventolin Neb Soln) 2.5 mg 1X ONCE NEB Last administered on 07/06/19at 00:56; Start 07/05/19 at 22:30; Stop 07/05/19 at 22:31; Status DC Insulin Human Regular (HumuLIN R VIAL) 5 unit 1X ONCE IV Last administered on 07/05/19at 22:14; Start 07/05/19 at 22:30; Stop 07/05/19 at 22:31; Status DC Magnesium Sulfate 50 ml @ 25 mls/hr 1X ONCE IV Last administered on 07/06/19at 02:57; Start 07/06/19 at 03:00; Stop 07/06/19 at 04:59; Status DC Calcium Gluconate 1000 mg/Sodium Chloride 110 ml @ 220 mls/hr 1X ONCE IV Last administered on 07/06/19at 02:46; Start 07/06/19 at 03:00; Stop 07/06/19 at 03:29; Status DC Sodium Chloride 1,000 ml @ 200 mls/hr Q5H IV Last administered on 07/06/19at 02:46; Start 07/06/19 at 03:00; Stop 07/06/19 at 10:21; Status DC Calcium Gluconate 1000 mg/Sodium Chloride 110 ml @ 220 mls/hr 1X ONCE IV Last administered on 07/06/19at 03:21; Start 07/06/19 at 03:30; Stop 07/06/19 at 03:59; Status DC Sodium Bicarbonate 50 meq/Sodium Chloride 1,050 ml @ 75 mls/hr Q14H IV Last administered on 07/10/19at 21:10; Start 07/06/19 at 07:30; Stop 07/11/19 at 10:28; Status DC Calcium Gluconate 2000 mg/Sodium Chloride 120 ml @ 220 mls/hr 1X ONCE IV Last administered on 07/06/19at 09:05; Start 07/06/19 at 07:30; Stop 07/06/19 at 08:02; Status DC Lidocaine HCl (Xylocaine-Mpf 1% 2ml Vial) 2 ml STK-MED ONCE .ROUTE ; Start 07/06/19 at 08:47; Stop 07/06/19 at 08:47; Status DC Meropenem 500 mg/ Sodium Chloride 50 ml @ 100 mls/hr Q12HR IV Last administered on 07/11/19at 21:01; Start 07/06/19 at 18:00; Stop 07/12/19 at 07:58; Status DC Lidocaine HCl (Buffered Lidocaine 1%) 3 ml STK-MED ONCE .ROUTE ; Start 07/06/19 at 09:46; Stop 07/06/19 at 09:46; Status DC Lidocaine HCl (Buffered Lidocaine 1%) 6 ml 1X ONCE INJ Last administered on 07/06/19at 10:26; Start 07/06/19 at 10:15; Stop 07/06/19 at 10:16; Status DC Info (Tpn Per Pharmacy) 1 each PRN DAILY PRN MC SEE COMMENTS Last administered on 11/13/19at 08:31; Start 07/06/19 at 12:00; Stop 11/13/19 at 10:41; Status DC Sodium Chloride 1,000 ml @ 1,000 mls/hr Q1H PRN IV hypotension; Start 07/06/19 at 12:07; Stop 07/06/19 at 18:06; Status DC Diphenhydramine HCl (Benadryl) 25 mg 1X PRN PRN IV ITCHING; Start 07/06/19 at 12:15; Stop 07/07/19 at 12:14; Status DC Diphenhydramine HCl (Benadryl) 25 mg 1X PRN PRN IV ITCHING; Start 07/06/19 at 12:15; Stop 07/07/19 at 12:14; Status DC Sodium Chloride 1,000 ml @ 400 mls/hr Q2H30M PRN IV PATENCY; Start 07/06/19 at 12:07; Stop 07/07/19 at 00:06; Status DC Info (PHARMACY MONITORING -- do not chart) 1 each PRN DAILY PRN MC SEE COMMENTS; Start 07/06/19 at 12:15; Stop 07/08/19 at 08:13; Status DC Sodium Chloride 90 meq/Calcium Gluconate 10 meq/ Multivitamins 10 ml/Chromium/ Copper/Manganese/ Seleni/Zn 1 ml/ Total Parenteral Nutrition/Amino Acids/Dextrose/ Fat Emulsion Intravenous 55.005 ml @ 2.292 mls/hr TPN CONT IV ; Start 07/06/19 at 22:00; Stop 07/06/19 at 12:33; Status DC Info (Tpn Per Pharmacy) 1 each PRN DAILY PRN MC SEE COMMENTS; Start 07/06/19 at 12:30; Status UNV Sodium Chloride 90 meq/Calcium Gluconate 10 meq/ Multivitamins 10 ml/Chromium/ Copper/Manganese/ Seleni/Zn 0.5 ml/ Total Parenteral Nutrition/Amino Acids/Dextrose/ Fat Emulsion Intravenous 1,512 ml @ 63 mls/hr TPN CONT IV Last administered on 07/06/19at 22:06; Start 07/06/19 at 22:00; Stop 07/07/19 at 21:59; Status DC Calcium Carbonate/ Glycine (Tums) 500 mg PRN AFTMEALHC PRN PO INDIGESTION; Start 07/06/19 at 17:45; Stop 08/31/19 at 10:25; Status DC Calcium Gluconate (Calcium Gluconate) 2,000 mg 1X ONCE IVP Last administered on 07/07/19at 02:19; Start 07/07/19 at 02:15; Stop 07/07/19 at 02:16; Status DC Calcium Chloride 3000 mg/Sodium Chloride 1,030 ml @ 50 mls/hr [id number] IV Last administered on 07/09/19at 02:17; Start 07/07/19 at 08:00; Stop 07/09/19 at 15:23; Status DC Lorazepam (Ativan Inj) 1 mg PRN Q4HRS PRN IVP ANXIETY / AGITATION, 2nd choic Last administered on 08/05/19at 03:51; Start 07/07/19 at 09:00; Stop 08/05/19 at 09:19; Status DC Sodium Chloride 1,000 ml @ 1,000 mls/hr Q1H PRN IV hypotension; Start 07/07/19 at 08:56; Stop 07/07/19 at 14:55; Status DC Albumin Human 200 ml @ 200 mls/hr 1X PRN PRN IV Hypotension; Start 07/07/19 at 09:00; Stop 07/07/19 at 14:59; Status DC Diphenhydramine HCl (Benadryl) 25 mg 1X PRN PRN IV ITCHING; Start 07/07/19 at 09:00; Stop 07/08/19 at 08:59; Status DC Diphenhydramine HCl (Benadryl) 25 mg 1X PRN PRN IV ITCHING; Start 07/07/19 at 09:00; Stop 07/08/19 at 08:59; Status DC Sodium Chloride 1,000 ml @ 400 mls/hr Q2H30M PRN IV PATENCY; Start 07/07/19 at 08:56; Stop 07/07/19 at 20:55; Status DC Info (PHARMACY MONITORING -- do not chart) 1 each PRN DAILY PRN MC SEE COMMENTS; Start 07/07/19 at 09:00; Status UNV Info (PHARMACY MONITORING -- do not chart) 1 each PRN DAILY PRN MC SEE COMMENTS; Start 07/07/19 at 09:00; Stop 07/08/19 at 08:13; Status DC Digoxin (Lanoxin) 500 mcg 1X ONCE IV Last administered on 07/07/19at 10:04; Start 07/07/19 at 10:00; Stop 07/07/19 at 10:01; Status DC Digoxin (Lanoxin) 125 mcg 1X ONCE IV Last administered on 07/07/19at 17:10; Start 07/07/19 at 18:00; Stop 07/07/19 at 18:01; Status DC Magnesium Sulfate 100 ml @ 25 mls/hr 1X ONCE IV Last administered on 07/07/19at 12:48; Start 07/07/19 at 13:00; Stop 07/07/19 at 16:59; Status DC Sodium Chloride 90 meq/Magnesium Sulfate 10 meq/ Calcium Gluconate 20 meq/ Multivitamins 10 ml/Chromium/ Copper/Manganese/ Seleni/Zn 0.5 ml/ Total Parenteral Nutrition/Amino Acids/Dextrose/ Fat Emulsion Intravenous 1,512 ml @ 63 mls/hr TPN CONT IV Last administered on 07/07/19at 22:25; Start 07/07/19 at 22:00; Stop 07/08/19 at 21:59; Status DC Sodium Chloride 1,000 ml @ 1,000 mls/hr Q1H PRN IV hypotension; Start 07/08/19 at 08:05; Stop 07/08/19 at 14:04; Status DC Albumin Human 200 ml @ 200 mls/hr 1X ONCE IV Last administered on 07/08/19at 08:57; Start 07/08/19 at 08:15; Stop 07/08/19 at 09:14; Status DC Diphenhydramine HCl (Benadryl) 25 mg 1X PRN PRN IV ITCHING; Start 07/08/19 at 08:15; Stop 07/09/19 at 08:14; Status DC Diphenhydramine HCl (Benadryl) 25 mg 1X PRN PRN IV ITCHING; Start 07/08/19 at 08:15; Stop 07/09/19 at 08:14; Status DC Sodium Chloride 1,000 ml @ 400 mls/hr Q2H30M PRN IV PATENCY; Start 07/08/19 at 08:05; Stop 07/08/19 at 20:04; Status DC Info (PHARMACY MONITORING -- do not chart) 1 each PRN DAILY PRN MC SEE COMMENTS; Start 07/08/19 at 08:15; Stop 07/12/19 at 07:57; Status DC Sodium Chloride 90 meq/Potassium Chloride 15 meq/ Potassium Phosphate 10 mmol/ Magnesium Sulfate 10 meq/Calcium Gluconate 20 meq/ Multivitamins 10 ml/Chromium/ Copper/Manganese/ Seleni/Zn 0.5 ml/ Total Parenteral Nutrition/Amino Acids/Dextrose/ Fat Emulsion Intravenous 1,512 ml @ 63 mls/hr TPN CONT IV Last administered on 07/08/19at 21:01; Start 07/08/19 at 22:00; Stop 07/09/19 at 21:59; Status DC Potassium Chloride/Water 100 ml @ 100 mls/hr 1X ONCE IV Last administered on 07/08/19at 14:09; Start 07/08/19 at 14:00; Stop 07/08/19 at 14:59; Status DC Benzocaine (Hurricaine One) 1 spray 1X ONCE MM Last administered on 07/08/19at 16:38; Start 07/08/19 at 14:30; Stop 07/08/19 at 14:31; Status DC Lidocaine HCl (Glydo (Lidocaine) Jelly) 1 ramu 1X ONCE MM Last administered on 07/08/19at 16:38; Start 07/08/19 at 14:30; Stop 07/08/19 at 14:31; Status DC Linezolid/Dextrose 300 ml @ 300 mls/hr Q12HR IV Last administered on 07/14/19at 21:04; Start 07/08/19 at 20:00; Stop 07/15/19 at 07:50; Status DC Acetaminophen (Tylenol) 650 mg PRN Q6HRS PRN PO MILD PAIN / TEMP; Start 07/09/19 at 03:30; Stop 07/09/19 at 03:36; Status DC Acetaminophen (Tylenol) 650 mg PRN Q6HRS PRN PEG MILD PAIN / TEMP Last administered on 08/04/19at 19:56; Start 07/09/19 at 03:36; Stop 08/31/19 at 1 0:25; Status DC Sodium Chloride 1,000 ml @ 1,000 mls/hr Q1H PRN IV hypotension; Start 07/09/19 at 07:50; Stop 07/09/19 at 13:49; Status DC Albumin Human 200 ml @ 200 mls/hr 1X PRN PRN IV Hypotension; Start 07/09/19 at 08:00; Stop 07/09/19 at 13:59; Status DC Sodium Chloride (Normal Saline Flush) 10 ml 1X PRN PRN IV AP catheter pack; Start 07/09/19 at 08:00; Stop 07/10/19 at 07:59; Status DC Sodium Chloride (Normal Saline Flush) 10 ml 1X PRN PRN IV [employer] catheter pack; Start 07/09/19 at 08:00; Stop 07/10/19 at 07:59; Status DC Sodium Chloride 1,000 ml @ 400 mls/hr Q2H30M PRN IV PATENCY; Start 07/09/19 at 07:50; Stop 07/09/19 at 19:49; Status DC Info (PHARMACY MONITORING -- do not chart) 1 each PRN DAILY PRN MC SEE COMMENTS; Start 07/09/19 at 08:00; Status UNV Info (PHARMACY MONITORING -- do not chart) 1 each PRN DAILY PRN MC SEE COMMENTS; Start 07/09/19 at 08:00; Stop 07/11/19 at 08:25; Status DC Sodium Chloride 90 meq/Potassium Chloride 15 meq/ Potassium Phosphate 10 mmol/ Magnesium Sulfate 10 meq/Calcium Gluconate 20 meq/ Multivitamins 10 ml/Chromium/ Copper/Manganese/ Seleni/Zn 0.5 ml/ Total Parenteral Nutrition/Amino A cids/Dextrose/ Fat Emulsion Intravenous 1,512 ml @ 63 mls/hr TPN CONT IV Last administered on 07/09/19at 20:57; Start 07/09/19 at 22:00; Stop 07/10/19 at 21:59; Status DC Sodium Chloride 90 meq/Potassium Chloride 15 meq/ Potassium Phosphate 15 mmol/ Magnesium Sulfate 10 meq/Calcium Gluconate 20 meq/ Multivitamins 10 ml/Chromium/ Copper/Manganese/ Seleni/Zn 0.5 ml/ Total Parenteral Nutrition/Amino Acids/Dextrose/ Fat Emulsion Intravenous 1,512 ml @ 63 mls/hr TPN CONT IV ; Start 07/10/19 at 22:00; Stop 07/10/19 at 14:16; Status DC Sodium Chloride 90 meq/Potassium Chloride 15 meq/ Potassium Phosphate 15 mmol/ Magnesium Sulfate 10 meq/Calcium Gluconate 20 meq/ Multivitamins 10 ml/Chromium/ Copper/Manganese/ Seleni/Zn 0.5 ml/ Total Parenteral Nutrition/Amino Acids/Dextrose/ Fat Emulsion Intravenous 1,200 ml @ 50 mls/hr TPN CONT IV ; Start 07/10/19 at 22:00; Stop 07/10/19 at 14:17; Status DC Sodium Chloride 90 meq/Potassium Chloride 15 meq/ Potassium Phosphate 10 mmol/ Magnesium Sulfate 10 meq/Calcium Gluconate 20 meq/ Multivitamins 10 ml/Chromium/ Copper/Manganese/ Seleni/Zn 0.5 ml/ Total Parenteral Nutrition/Amino Acids/Dextrose/ Fat Emulsion Intravenous 1,200 ml @ 50 mls/hr TPN CONT IV Last administered on 07/10/19at 23:29; Start 07/10/19 at 22:00; Stop 07/11/19 at 21:59; Status DC Sodium Chloride 1,000 ml @ 1,000 mls/hr Q1H PRN IV hypotension; Start 07/11/19 at 07:28; Stop 07/11/19 at 13:27; Status DC Albumin Human 200 ml @ 200 mls/hr 1X ONCE IV Last administered on 07/11/19at 08:51; Start 07/11/19 at 07:30; Stop 07/11/19 at 08:29; Status DC Diphenhydramine HCl (Benadryl) 25 mg 1X PRN PRN IV ITCHING; Start 07/11/19 at 07:30; Stop 07/12/19 at 07:29; Status DC Diphenhydramine HCl (Benadryl) 25 mg 1X PRN PRN IV ITCHING; Start 07/11/19 at 07:30; Stop 07/12/19 at 07:29; Status DC Sodium Chloride 1,000 ml @ 400 mls/hr Q2H30M PRN IV PATENCY; Start 07/11/19 at 07:28; Stop 07/11/19 at 19:27; Status DC Info (PHARMACY MONITORING -- do not chart) 1 each PRN DAILY PRN MC SEE COMMENTS; Start 07/11/19 at 07:30; Stop 07/22/19 at 13:01; Status DC Metronidazole 100 ml @ 100 mls/hr Q6HRS IV Last administered on 07/27/19at 06:26; Start 07/11/19 at 08:30; Stop 07/27/19 at 09:58; Status DC Micafungin Sodium 100 mg/Dextrose 100 ml @ 100 mls/hr Q24H IV Last admini stered on 08/18/19at 08:18; Start 07/11/19 at 09:00; Stop 08/18/19 at 20:58; Status DC Propofol 0 ml @ As Directed STK-MED ONCE IV ; Start 07/11/19 at 07:53; Stop 07/11/19 at 07:53; Status DC Etomidate (Amidate) 20 mg STK-MED ONCE IV ; Start 07/11/19 at 07:53; Stop 07/11/19 at 07:54; Status DC Midazolam HCl (Versed) 5 mg STK-MED ONCE .ROUTE ; Start 07/11/19 at 07:57; Stop 07/11/19 at 07:57; Status DC Fentanyl Citrate 30 ml @ 0 mls/hr CONT PRN IV SEE PROTOCOL Last administered on 08/05/19at 06:12; Start 07/11/19 at 08:15; Stop 08/05/19 at 09:19; Status DC Artificial Tears (Artificial Tears) 1 drop PRN Q1HR PRN OU DRY EYE, 1st choice; Start 07/11/19 at 08:15; Stop 08/17/19 at 05:31; Status DC Midazolam HCl 50 mg/Sodium Chloride 50 ml @ 0 mls/hr CONT PRN IV SEE PROTOCOL Last administered on 07/14/19at 22:39; Start 07/11/19 at 08:15; Stop 07/16/19 at 15:59; Status DC Etomidate (Amidate) 8 mg 1X ONCE IV Last administered on 07/11/19at 08:33; Start 07/11/19 at 08:30; Stop 07/11/19 at 08:31; Status DC Succinylcholine Chloride (Anectine) 120 mg 1X ONCE IV Last administered on 07/11/19at 08:34; Start 07/11/19 at 08:30; Stop 07/11/19 at 08:31; Status DC Midazolam HCl (Versed) 5 mg 1X ONCE IV ; Start 07/11/19 at 08:30; Stop 07/11/19 at 08:31; Status DC Potassium Chloride 15 meq/ Bicarbonate Dialysis Soln w/ out KCl 5,007.5 ml @ 1,000 mls/ hr Q5H1M IV Last administered on 07/12/19at 11:11; Start 07/11/19 at 12:00; Stop 07/12/19 at 11:15; Status DC Potassium Chloride 15 meq/ Bicarbonate Dialysis Soln w/ out KCl 5,007.5 ml @ 1,000 mls/ hr Q5H1M IV Last administered on 07/12/19at 11:12; Start 07/11/19 at 12:00; Stop 07/12/19 at 11:17; Status DC Potassium Chloride 15 meq/ Bicarbonate Dialysis Soln w/ out KCl 5,007.5 ml @ 1,000 mls/ hr Q5H1M IV Last administered on 07/12/19at 11:11; Start 07/11/19 at 12:00; Stop 07/12/19 at 11:19; Status DC Sodium Chloride 90 meq/Potassium Chloride 15 meq/ Potassium Phosphate 10 mmol/ Magnesium Sulfate 10 meq/Calcium Gluconate 20 meq/ Multivitamins 10 ml/Chromium/ Copper/Manganese/ Seleni/Zn 0.5 ml/ Total Parenteral Nutrition/Amino Acids/Dextrose/ Fat Emulsion Intravenous 1,400 ml @ 58.333 mls/ hr TPN CONT IV Last administered on 07/11/19at 21:42; Start 07/11/19 at 22:00; Stop 07/12/19 at 21:59; Status DC Heparin Sodium (Porcine) (Heparin Sodium) 5,000 unit Q8HRS SQ Last administered on 07/16/19at 05:55; Start 07/11/19 at 15:00; Stop 07/16/19 at 13:28; Status DC Meropenem 500 mg/ Sodium Chloride 50 ml @ 100 mls/hr Q6HRS IV Last administered on 07/13/19at 06:00; Start 07/12/19 at 09:00; Stop 07/13/19 at 07:29; Status DC Potassium Phosphate 20 mmol/ Sodium Chloride 106.6667 ml @ 51.667 m... 1X ONCE IV Last administered on 07/12/19at 11:22; Start 07/12/19 at 10:15; Stop 07/12/19 at 12:18; Status DC Acetaminophen (Tylenol Supp) 650 mg PRN Q6HRS PRN CO MILD PAIN / TEMP > 100.3'F Last administered on 11/28/19at 15:43; Start 07/12/19 at 10:30 Potassium Chloride/Water 100 ml @ 100 mls/hr Q1H IV Last administered on 07/12/19at 12:12; Start 07/12/19 at 11:00; Stop 07/12/19 at 12:59; Status DC Potassium Chloride 20 meq/ Bicarbonate Dialysis Soln w/ out KCl 5,010 ml @ 1,000 mls/hr Q5H1M IV Last administered on 07/13/19at 08:48; Start 07/12/19 at 12:00; Stop 07/13/19 at 13:03; Status DC Potassium Chloride 20 meq/ Bicarbonate Dialysis Soln w/ out KCl 5,010 ml @ 1,000 mls/hr Q5H1M IV Last administered on 07/17/19at 14:52; Start 07/12/19 at 11:30; Stop 07/17/19 at 19:59; Status DC Potassium Chloride 20 meq/ Bicarbonate Dialysis Soln w/ out KCl 5,010 ml @ 1,000 mls/hr Q5H1M IV Last administered on 07/17/19at 14:53; Start 07/12/19 at 11:30; Stop 07/17/19 at 19:59; Status DC Sodium Chloride 90 meq/Potassium Chloride 15 meq/ Potassium Phosphate 15 mmol/ Magnesium Sulfate 10 meq/Calcium Gluconate 15 meq/ Multivitamins 10 ml/Chromium/ Copper/Manganese/ Seleni/Zn 0.5 ml/ Total Parenteral Nutrition/Amino Acids/Dextrose/ Fat Emulsion Intravenous 1,400 ml @ 58.333 mls/ hr TPN CONT IV Last administered on 07/12/19at 22:17; Start 07/12/19 at 22:00; Stop 07/13/19 at 21:59; Status DC Cefepime HCl (Maxipime) 2 gm Q12HR IVP Last administered on 07/26/19at 20:56; Start 07/13/19 at 09:00; Stop 07/27/19 at 09:58; Status DC Daptomycin 500 mg/ Sodium Chloride 50 ml @ 100 mls/hr Q48H IV Last administered on 07/29/19at 09:57; Start 07/13/19 at 08:30; Stop 07/29/19 at 10:07; Status DC Lidocaine HCl (Buffered Lidocaine 1%) 3 ml 1X ONCE INJ Last administered on 07/13/19at 10:27; Start 07/13/19 at 10:30; Stop 07/13/19 at 10:31; Status DC Potassium Phosphate 20 mmol/ Sodium Chloride 106.6667 ml @ 51.667 m... 1X ONCE IV Last administered on 07/13/19at 12:51; Start 07/13/19 at 13:00; Stop 07/13/19 at 15:03; Status DC Sodium Chloride 90 meq/Potassium Chloride 15 meq/ Potassium Phosphate 18 mmol/ Magnesium Sulfate 8 meq/Calcium Gluconate 15 meq/ Multivitamins 10 ml/Chromium/ Copper/Manganese/ Seleni/Zn 0.5 ml/ Total Parenteral Nutrition/Amino Acids/Dextrose/ Fat Emulsion Intravenous 1,400 ml @ 58.333 mls/ hr TPN CONT IV Last administered on 07/13/19at 22:16; Start 07/13/19 at 22:00; Stop 07/14/19 at 21:59; Status DC Potassium Chloride 20 meq/ Bicarbonate Dialysis Soln w/ out KCl 5,010 ml @ 1,000 mls/hr Q5H1M IV Last administered on 07/17/19at 14:54; Start 07/13/19 at 16:00; Stop 07/17/19 at 19:59; Status DC Multi-Ingred Cream/Lotion/Oil/ Oint (Artificial Tears Eye Ointment) 1 ramu PRN Q1HR PRN OU DRY EYE, 2nd choice Last administered on 08/01/19at 08:19; Start 07/13/19 at 17:30; Stop 09/21/19 at 14:39; Status DC Sodium Chloride 90 meq/Potassium Chloride 15 meq/ Potassium Phosphate 18 mmol/ Magnesium Sulfate 8 meq/Calcium Gluconate 15 meq/ Multivitamins 10 ml/Chromium/ Copper/Manganese/ Seleni/Zn 0.5 ml/ Total Parenteral Nutrition/Amino Acids/Dextrose/ Fat Emulsion Intravenous 1,400 ml @ 58.333 mls/ hr TPN CONT IV Last administered on 07/14/19at 22:00; Start 07/14/19 at 22:00; Stop 07/15/19 at 21:59; Status DC Albumin Human 500 ml @ 125 mls/hr 1X ONCE IV ; Start 07/14/19 at 14:15; Stop 07/14/19 at 18:14; Status DC Sodium Chloride 90 meq/Potassium Chloride 15 meq/ Potassium Phosphate 18 mmol/ Magnesium Sulfate 8 meq/Calcium Gluconate 15 meq/ Multivitamins 10 ml/Chromium/ Copper/Manganese/ Seleni/Zn 0.5 ml/ Insulin Human Regular 10 unit/ Total Parenteral Nutrition/Amino Acids/Dextrose/ Fat Emulsion Intravenous 1,400 ml @ 58.333 mls/ hr TPN CONT IV Last administered on 07/15/19at 21:43; Start 07/15/19 at 22:00; Stop 07/16/19 at 21:59; Status DC Lidocaine HCl (Buffered Lidocaine 1%) 3 ml STK-MED ONCE .ROUTE ; Start 07/13/19 at 10:00; Stop 07/15/19 at 13:57; Status DC Midazolam HCl 100 mg/Sodium Chloride 100 ml @ 7 mls/hr CONT PRN IV SEE PROTOCOL Last administered on 07/27/19at 15:35; Start 07/16/19 at 16:00; Stop 09/21/19 at 14:38; Status DC Sodium Chloride 90 meq/Potassium Chloride 15 meq/ Potassium Phosphate 18 mmol/ Magnesium Sulfate 8 meq/Calcium Gluconate 15 meq/ Multivitamins 10 ml/Chromium/ Copper/Manganese/ Seleni/Zn 0.5 ml/ Insulin Human Regular 15 unit/ Total Parenteral Nutrition/Amino Acids/Dextrose/ Fat Emulsion Intravenous 1,400 ml @ 58.333 mls/ hr TPN CONT IV Last administered on 07/16/19at 20:34; Start 07/16/19 at 22:00; Stop 07/17/19 at 21:59; Status DC Info (Icu Electrolyte Protocol) 1 ea CONT PRN PRN MC PER PROTOCOL; Start 07/17/19 at 13:15 Sodium Chloride 90 meq/Potassium Chloride 15 meq/ Potassium Phosphate 18 mmol/ Magnesium Sulfate 8 meq/Calcium Gluconate 15 meq/ Multivitamins 10 ml/Chromium/ Copper/Manganese/ Seleni/Zn 0.5 ml/ Insulin Human Regular 15 unit/ Total Parenteral Nutrition/Amino Acids/Dextrose/ Fat Emulsion Intravenous 1,400 ml @ 58.333 mls/ hr TPN CONT IV Last administered on 07/17/19at 22:05; Start 07/17/19 at 22:00; Stop 07/18/19 at 21:59; Status DC Potassium Chloride 15 meq/ Bicarbonate Dialysis Soln w/ out KCl 5,007.5 ml @ 1,000 mls/ hr Q5H1M IV Last administered on 07/20/19at 18:14; Start 07/17/19 at 20:00; Stop 07/21/19 at 13:08; Status DC Potassium Chloride 15 meq/ Bicarbonate Dialysis Soln w/ out KCl 5,007.5 ml @ 1,000 mls/ hr Q5H1M IV Last administered on 07/20/19at 18:14; Start 07/17/19 at 20:00; Stop 07/21/19 at 13:08; Status DC Potassium Chloride 15 meq/ Bicarbonate Dialysis Soln w/ out KCl 5,007.5 ml @ 1,000 mls/ hr Q5H1M IV Last administered on 07/20/19at 18:14; Start 07/17/19 at 20:00; Stop 07/21/19 at 13:08; Status DC Iohexol (Omnipaque 240 Mg/ml) 30 ml 1X ONCE PO Last administered on 07/18/19at 11:30; Start 07/18/19 at 11:30; Stop 07/18/19 at 11:33; Status DC Info (CONTRAST GIVEN -- Rx MONITORING) 1 each PRN DAILY PRN MC SEE COMMENTS; Start 07/18/19 at 11:45; Stop 07/20/19 at 11:44; Status DC Sodium Chloride 90 meq/Potassium Chloride 15 meq/ Potassium Phosphate 18 mmol/ Magnesium Sulfate 8 meq/Calcium Gluconate 15 meq/ Multivitamins 10 ml/Chromium/ Copper/Manganese/ Seleni/Zn 0.5 ml/ Insulin Human Regular 15 unit/ Total Parenteral Nutrition/Amino Acids/Dextrose/ Fat Emulsion Intravenous 1,400 ml @ 58.333 mls/ hr TPN CONT IV Last administered on 07/18/19at 21:47; Start 07/18/19 at 22:00; Stop 07/19/19 at 21:59; Status DC Sodium Chloride 90 meq/Potassium Chloride 15 meq/ Potassium Phosphate 18 mmol/ Magnesium Sulfate 8 meq/Calcium Gluconate 15 meq/ Multivitamins 10 ml/Chromium/ Copper/Manganese/ Seleni/Zn 0.5 ml/ Insulin Human Regular 20 unit/ Total Parenteral Nutrition/Amino Acids/Dextrose/ Fat Emulsion Intravenous 1,400 ml @ 58.333 mls/ hr TPN CONT IV Last administered on 07/19/19at 21:36; Start 07/19/19 at 22:00; Stop 07/20/19 at 21:59; Status DC Alteplase, Recombinant (Cathflo For Central Catheter Clearance) 1 mg 1X ONCE INT CAT Last administered on 07/19/19at 20:03; Start 07/19/19 at 19:30; Stop 07/19/19 at 19:46; Status DC Alteplase, Recombinant (Cathflo For Central Catheter Clearance) 1 mg 1X ONCE INT CAT Last administered on 07/19/19at 22:05; Start 07/19/19 at 22:00; Stop 07/19/19 at 22:01; Status DC Sodium Chloride 90 meq/Potassium Chloride 15 meq/ Potassium Phosphate 18 mmol/ Magnesium Sulfate 8 meq/Calcium Gluconate 15 meq/ Multivitamins 10 ml/Chromium/ Copper/Manganese/ Seleni/Zn 0.5 ml/ Insulin Human Regular 20 unit/ Total Parenteral Nutrition/Amino Acids/Dextrose/ Fat Emulsion Intravenous 1,400 ml @ 58.333 mls/ hr TPN CONT IV Last administered on 07/20/19at 21:30; Start 07/20/19 at 22:00; Stop 07/21/19 at 21:59; Status DC Dexmedetomidine HCl 400 mcg/ Sodium Chloride 100 ml @ 0 mls/hr CONT PRN IV ANXIETY / AGITATION Last administered on 09/17/19at 12:57; Start 07/21/19 at 08:15; Stop 09/17/19 at 18:31; Status DC Sodium Chloride 500 ml @ 500 mls/hr 1X PRN PRN IV ELEVATED BP, SEE COMMENTS; Start 07/21/19 at 08:15; Stop 11/23/19 at 09:08; Status DC Atropine Sulfate (ATROPINE 0.5mg SYRINGE) 0.5 mg PRN Q5MIN PRN IV SEE COMMENTS; Start 07/21/19 at 08:15; Stop 11/21/19 at 09:45; Status DC Furosemide (Lasix) 20 mg 1X ONCE IVP Last administered on 07/21/19at 08:19; Start 07/21/19 at 08:15; Stop 07/21/19 at 08:16; Status DC Lidocaine HCl (Buffered Lidocaine 1%) 3 ml STK-MED ONCE .ROUTE ; Start 07/21/19 at 08:39; Stop 07/21/19 at 08:39; Status DC Lidocaine HCl (Buffered Lidocaine 1%) 6 ml 1X ONCE INJ Last administered on 07/21/19at 09:05; Start 07/21/19 at 09:00; Stop 07/21/19 at 09:06; Status DC Sodium Chloride 90 meq/Potassium Chloride 15 meq/ Potassium Phosphate 18 mmol/ Magnesium Sulfate 8 meq/Calcium Gluconate 15 meq/ Multivitamins 10 ml/Chromium/ Copper/Manganese/ Seleni/Zn 0.5 ml/ Insulin Human Regular 20 unit/ Total Parenteral Nutrition/Amino Acids/Dextrose/ Fat Emulsion Intravenous 1,400 ml @ 58.333 mls/ hr TPN CONT IV Last administered on 07/21/19at 22:45; Start 07/21/19 at 22:00; Stop 07/22/19 at 21:59; Status DC Sodium Chloride 1,000 ml @ 1,000 mls/hr Q1H PRN IV hypotension; Start 07/22/19 at 07:30; Stop 07/22/19 at 13:29; Status DC Albumin Human 200 ml @ 200 mls/hr 1X PRN PRN IV Hypotension Last administered on 07/22/19at 09:36; Start 07/22/19 at 07:30; Stop 07/22/19 at 13:29; Status DC Sodium Chloride (Normal Saline Flush) 10 ml 1X PRN PRN IV AP catheter pack; Start 07/22/19 at 07:30; Stop 07/22/19 at 21:29; Status DC Sodium Chloride (Normal Saline Flush) 10 ml 1X PRN PRN IV [employer] catheter pack; Start 07/22/19 at 07:30; Stop 07/23/19 at 07:29; Status DC Sodium Chloride 1,000 ml @ 400 mls/hr Q2H30M PRN IV PATENCY; Start 07/22/19 at 07:30; Stop 07/22/19 at 19:29; Status DC Info (PHARMACY MONITORING -- do not chart) 1 each PRN DAILY PRN MC SEE COMMENTS; Start 07/22/19 at 07:30; Stop 07/22/19 at 13:02; Status DC Info (PHARMACY MONITORING -- do not chart) 1 each PRN DAILY PRN MC SEE COMMENTS; Start 07/22/19 at 07:30; Stop 07/24/19 at 12:45; Status DC Sodium Chloride 90 meq/Potassium Chloride 15 meq/ Potassium Phosphate 10 mmol/ Magnesium Sulfate 8 meq/Calcium Gluconate 15 meq/ Multivitamins 10 ml/Chromium/ Copper/Manganese/ Seleni/Zn 0.5 ml/ Insulin Human Regular 25 unit/ Total Parenteral Nutrition/Amino Acids/Dextrose/ Fat Emulsion Intravenous 1,400 ml @ 58.333 mls/ hr TPN CONT IV Last administered on 07/22/19at 22:19; Start 07/22/19 at 22:00; Stop 07/23/19 at 21:59; Status DC Heparin Sodium (Porcine) (Heparin Sodium) 5,000 unit Q12HR SQ Last administered on 08/14/19at 08:59; Start 07/22/19 at 21:00; Stop 08/14/19 at 10:05; Status DC Ondansetron HCl (Zofran) 4 mg PRN Q6HRS PRN IV NAUSEA/VOMITING; Start 07/25/19 at 07:00; Stop 07/26/19 at 06:59; Status DC Fentanyl Citrate (Fentanyl 2ml Vial) 25 mcg PRN Q5MIN PRN IV MILD PAIN 1-3; Start 07/25/19 at 07:00; Stop 07/26/19 at 06:59; Status DC Fentanyl Citrate (Fentanyl 2ml Vial) 50 mcg PRN Q5MIN PRN IV MODERATE TO SEVERE PAIN; Start 07/25/19 at 07:00; Stop 07/26/19 at 06:59; Status DC Ringer's Solution 1,000 ml @ 30 mls/hr Q24H IV ; Start 07/25/19 at 07:00; Stop 07/25/19 at 18:59; Status DC Lidocaine HCl (Xylocaine-Mpf 1% 2ml Vial) 2 ml PRN 1X PRN ID PRIOR TO IV START; Start 07/25/19 at 07:00; Stop 07/26/19 at 06:59; Status DC Prochlorperazine Edisylate (Compazine) 5 mg PACU PRN PRN IV NAUSEA, MRX1; Start 07/25/19 at 07:00; Stop 07/26/19 at 06:59; Status DC Sodium Chloride 1,000 ml @ 1,000 mls/hr Q1H PRN IV hypotension; Start 07/23/19 at 09:10; Stop 07/23/19 at 15:09; Status DC Albumin Human 200 ml @ 200 mls/hr 1X PRN PRN IV Hypotension Last administered on 07/23/19at 10:10; Start 07/23/19 at 09:15; Stop 07/23/19 at 15:14; Status DC Sodium Chloride 1,000 ml @ 400 mls/hr Q2H30M PRN IV PATENCY; Start 07/23/19 at 09:10; Stop 07/23/19 at 21:09; Status DC Info (PHARMACY MONITORING -- do not chart) 1 each PRN DAILY PRN MC SEE COMMENTS; Start 07/23/19 at 09:15; Stop 07/24/19 at 12:45; Status DC Info (PHARMACY MONITORING -- do not chart) 1 each PRN DAILY PRN MC SEE COMMENTS; Start 07/23/19 at 09:15; Stop 07/24/19 at 12:45; Status DC Sodium Chloride 90 meq/Potassium Chloride 15 meq/ Potassium Phosphate 10 mmol/ Magnesium Sulfate 8 meq/Calcium Gluconate 15 meq/ Multivitamins 10 ml/Chromium/ Copper/Manganese/ Seleni/Zn 0.5 ml/ Insulin Human Regular 25 unit/ Total Parenteral Nutrition/Amino Acids/Dextrose/ Fat Emulsion Intravenous 1,400 ml @ 58.333 mls/ hr TPN CONT IV Last administered on 07/23/19at 22:10; Start 07/23/19 at 22:00; Stop 07/24/19 at 21:59; Status DC Magnesium Sulfate 50 ml @ 25 mls/hr PRN DAILY PRN IV for Mag < 1.7 on am labs Last administered on 10/06/19at 10:57; Start 07/24/19 at 09:15 Sodium Chloride 90 meq/Potassium Chloride 15 meq/ Potassium Phosphate 10 mmol/ Magnesium Sulfate 8 meq/Calcium Gluconate 15 meq/ Multivitamins 10 ml/Chromium/ Copper/Manganese/ Seleni/Zn 0.5 ml/ Insulin Human Regular 25 unit/ Total Parenteral Nutrition/Amino Acids/Dextrose/ Fat Emulsion Intravenous 1,400 ml @ 58.333 mls/ hr TPN CONT IV Last administered on 07/24/19at 21:20; Start 07/24/19 at 22:00; Stop 07/25/19 at 21:59; Status DC Sodium Chloride 1,000 ml @ 1,000 mls/hr Q1H PRN IV hypotension; Start 07/24/19 at 12:23; Stop 07/24/19 at 18:22; Status DC Albumin Human 200 ml @ 200 mls/hr 1X ONCE IV Last administered on 07/24/19at 13:34; Start 07/24/19 at 12:30; Stop 07/24/19 at 13:29; Status DC Diphenhydramine HCl (Benadryl) 25 mg 1X PRN PRN IV ITCHING; Start 07/24/19 at 12:30; Stop 07/25/19 at 12:29; Status DC Diphenhydramine HCl (Benadryl) 25 mg 1X PRN PRN IV ITCHING; Start 07/24/19 at 12:30; Stop 07/25/19 at 12:29; Status DC Info (PHARMACY MONITORING -- do not chart) 1 each PRN DAILY PRN MC SEE COMMENTS; Start 07/24/19 at 12:30; Status Cancel Bupivacaine HCl/ Epinephrine Bitart (Sensorcain-Epi 0.5%-1:340256 Mpf) 30 ml STK-MED ONCE .ROUTE Last administered on 07/25/19at 11:44; Start 07/25/19 at 11:00; Stop 07/25/19 at 11:01; Status DC Cellulose (Surgicel Fibrillar 1x2) 1 each STK-MED ONCE .ROUTE ; Start 07/25/19 at 11:00; Stop 07/25/19 at 11:01; Status DC Sodium Chloride 90 meq/Potassium Chloride 15 meq/ Potassium Phosphate 10 mmol/ Magnesium Sulfate 12 meq/Calcium Gluconate 15 meq/ Multivitamins 10 ml/Chromium/ Copper/Manganese/ Seleni/Zn 0.5 ml/ Insulin Human Regular 25 unit/ Total Parenteral Nutrition/Amino Acids/Dextrose/ Fat Emulsion Intravenous 1,400 ml @ 58.333 mls/ hr TPN CONT IV Last administered on 07/25/19at 22:24; Start 07/25/19 at 22:00; Stop 07/26/19 at 21:59; Status DC Propofol 20 ml @ As Directed STK-MED ONCE IV ; Start 07/25/19 at 11:07; Stop 07/25/19 at 11:07; Status DC Cellulose (Surgicel Hemostat 4x8) 1 each STK-MED ONCE .ROUTE Last administered on 07/25/19at 11:44; Start 07/25/19 at 11:55; Stop 07/25/19 at 11:56; Status DC Sevoflurane (Ultane) 60 ml STK-MED ONCE IH ; Start 07/25/19 at 12:46; Stop 07/25/19 at 12:46; Status DC Sodium Chloride 1,000 ml @ 1,000 mls/hr Q1H PRN IV hypotension; Start 07/25/19 at 13:51; Stop 07/25/19 at 19:50; Status DC Albumin Human 200 ml @ 200 mls/hr 1X PRN PRN IV Hypotension Last administered on 07/25/19at 14:51; Start 07/25/19 at 14:00; Stop 07/25/19 at 19:59; Status DC Diphenhydramine HCl (Benadryl) 25 mg 1X PRN PRN IV ITCHING; Start 07/25/19 at 14:00; Stop 07/26/19 at 13:59; Status DC Diphenhydramine HCl (Benadryl) 25 mg 1X PRN PRN IV ITCHING; Start 07/25/19 at 14:00; Stop 07/26/19 at 13:59; Status DC Sodium Chloride 1,000 ml @ 400 mls/hr Q2H30M PRN IV PATENCY; Start 07/25/19 at 13:51; Stop 07/26/19 at 01:50; Status DC Info (PHARMACY MONITORING -- do not chart) 1 each PRN DAILY PRN MC SEE COMMENTS; Start 07/25/19 at 14:00; Stop 07/28/19 at 08:16; Status DC Heparin Sodium (Porcine) (Hep Lock Adult) 500 unit STK-MED ONCE IVP ; Start 07/26/19 at 09:29; Stop 07/26/19 at 09:30; Status DC Sodium Chloride 1,000 ml @ 1,000 mls/hr Q1H PRN IV hypotension; Start 07/26/19 at 10:43; Stop 07/26/19 at 16:42; Status DC Sodium Chloride 1,000 ml @ 400 mls/hr Q2H30M PRN IV PATENCY; Start 07/26/19 at 10:43; Stop 07/26/19 at 22:42; Status DC Info (PHARMACY MONITORING -- do not chart) 1 each PRN DAILY PRN MC SEE COMMENTS; Start 07/26/19 at 10:45; Status UNV Info (PHARMACY MONITORING -- do not chart) 1 each PRN DAILY PRN MC SEE COMMENTS; Start 07/26/19 at 10:45; Status UNV Sodium Chloride 90 meq/Potassium Chloride 15 meq/ Magnesium Sulfate 12 meq/Calcium Gluconate 15 meq/ Multivitamins 10 ml/Chromium/ Copper/Manganese/ Seleni/Zn 0.5 ml/ Insulin Human Regular 25 unit/ Total Parenteral Nutrition/Amino Acids/Dextrose/ Fat Emulsion Intravenous 1,400 ml @ 58.333 mls/ hr TPN CONT IV Last administered on 07/26/19at 22:13; Start 07/26/19 at 22:00; Stop 07/27/19 at 21:59; Status DC Sodium Chloride 1,000 ml @ 1,000 mls/hr Q1H PRN IV hypotension; Start 07/27/19 at 07:50; Stop 07/27/19 at 13:49; Status DC Albumin Human 200 ml @ 200 mls/hr 1X ONCE IV ; Start 07/27/19 at 08:00; Stop 07/27/19 at 08:53; Status DC Diphenhydramine HCl (Benadryl) 25 mg 1X PRN PRN IV ITCHING; Start 07/27/19 at 08:00; Stop 07/28/19 at 07:59; Status DC Diphenhydramine HCl (Benadryl) 25 mg 1X PRN PRN IV ITCHING; Start 07/27/19 at 08:00; Stop 07/28/19 at 07:59; Status DC Info (PHARMACY MONITORING -- do not chart) 1 each PRN DAILY PRN MC SEE COMMENTS; Start 07/27/19 at 08:00; Stop 07/28/19 at 08:16; Status DC Albumin Human 50 ml @ 50 mls/hr 1X ONCE IV ; Start 07/27/19 at 08:53; Stop 07/27/19 at 08:56; Status DC Albumin Human 200 ml @ 50 mls/hr PRN 1X PRN IV HYPOTENSION Last administered on 08/02/19at 11:54; Start 07/27/19 at 09:00; Stop 09/08/19 at 11:14; Status DC Meropenem 500 mg/ Sodium Chloride 50 ml @ 100 mls/hr Q12H IV Last administered on 08/16/19at 10:45; Start 07/27/19 at 10:00; Stop 08/16/19 at 12:37; Status DC Sodium Chloride 90 meq/Magnesium Sulfate 12 meq/ Calcium Gluconate 15 meq/ Multivitamins 10 ml/Chromium/ Copper/Manganese/ Seleni/Zn 0.5 ml/ Insulin Human Regular 25 unit/ Total Parenteral Nutrition/Amino Acids/Dextrose/ Fat Emulsion Intravenous 1,400 ml @ 58.333 mls/ hr TPN CONT IV Last administered on 07/27/19at 21:41; Start 07/27/19 at 22:00; Stop 07/28/19 at 21:59; Status DC Sodium Chloride 1,000 ml @ 1,000 mls/hr Q1H PRN IV hypotension; Start 07/28/19 at 07:58; Stop 07/28/19 at 13:57; Status DC Albumin Human 200 ml @ 200 mls/hr 1X PRN PRN IV Hypotension Last administered on 07/28/19at 09:30; Start 07/28/19 at 08:00; Stop 07/28/19 at 13:59; Status DC Sodium Chloride 1,000 ml @ 400 mls/hr Q2H30M PRN IV PATENCY; Start 07/28/19 at 07:58; Stop 07/28/19 at 19:57; Status DC Info (PHARMACY MONITORING -- do not chart) 1 each PRN DAILY PRN MC SEE COMMENTS; Start 07/28/19 at 08:00; Status Cancel Info (PHARMACY MONITORING -- do not chart) 1 each PRN DAILY PRN MC SEE COMMENTS; Start 07/28/19 at 08:15; Status UNV Sodium Chloride 90 meq/Potassium Phosphate 5 mmol/ Magnesium Sulfate 12 meq/Calcium Gluconate 15 meq/ Multivitamins 10 ml/Chromium/ Copper/Manganese/ Seleni/Zn 0.5 ml/ Insulin Human Regular 30 unit/ Total Parenteral Nutrition/Amino Acids/Dextrose/ Fat Emulsion Intravenous 1,400 ml @ 58.333 mls/ hr TPN CONT IV Last administered on 07/28/19at 22:08; Start 07/28/19 at 22:00; Stop 07/29/19 at 21:59; Status DC Linezolid/Dextrose 300 ml @ 300 mls/hr Q12HR IV Last administered on 08/08/19at 20:40; Start 07/29/19 at 11:00; Stop 08/09/19 at 08:10; Status DC Sodium Chloride 90 meq/Potassium Phosphate 15 mmol/ Magnesium Sulfate 12 meq/Calcium Gluconate 15 meq/ Multivitamins 10 ml/Chromium/ Copper/Manganese/ Seleni/Zn 0.5 ml/ Insulin Human Regular 30 unit/ Total Parenteral Nutrition/Amino Acids/Dextrose/ Fat Emulsion Intravenous 1,400 ml @ 58.333 mls/ hr TPN CONT IV Last administered on 07/29/19at 21:49; Start 07/29/19 at 22:00; Stop 07/30/19 at 21:59; Status DC Sodium Chloride 90 meq/Potassium Phosphate 15 mmol/ Magnesium Sulfate 12 meq/Calcium Gluconate 15 meq/ Multivitamins 10 ml/Chromium/ Copper/Manganese/ Seleni/Zn 0.5 ml/ Insulin Human Regular 40 unit/ Total Parenteral Nutrition/Amino Acids/Dextrose/ Fat Emulsion Intravenous 1,400 ml @ 58.333 mls/ hr TPN CONT IV Last administered on 07/30/19at 21:21; Start 07/30/19 at 22:00; Stop 07/31/19 at 21:59; Status DC Sodium Chloride 1,000 ml @ 1,000 mls/hr Q1H PRN IV hypotension; Start 07/30/19 at 13:26; Stop 07/30/19 at 19:25; Status DC Albumin Human 200 ml @ 200 mls/hr 1X PRN PRN IV Hypotension Last administered on 07/30/19at 15:00; Start 07/30/19 at 13:30; Stop 07/30/19 at 19:29; Status DC Sodium Chloride (Normal Saline Flush) 10 ml 1X PRN PRN IV AP catheter pack; Start 07/30/19 at 13:30; Stop 07/31/19 at 13:29; Status DC Sodium Chloride (Normal Saline Flush) 10 ml 1X PRN PRN IV [employer] catheter pack; Start 07/30/19 at 13:30; Stop 07/31/19 at 13:29; Status DC Sodium Chloride 1,000 ml @ 400 mls/hr Q2H30M PRN IV PATENCY; Start 07/30/19 at 13:26; Stop 07/31/19 at 01:25; Status DC Info (PHARMACY MONITORING -- do not chart) 1 each PRN DAILY PRN MC SEE COMMENTS; Start 07/30/19 at 13:30; Stop 07/30/19 at 13:33; Status DC Info (PHARMACY MONITORING -- do not chart) 1 each PRN DAILY PRN MC SEE COMMENTS; Start 07/30/19 at 13:30; Stop 07/30/19 at 13:34; Status DC Sodium Chloride 90 meq/Potassium Phosphate 19 mmol/ Magnesium Sulfate 12 meq/Calcium Gluconate 15 meq/ Multivitamins 10 ml/Chromium/ Copper/Manganese/ Seleni/Zn 0.5 ml/ Insulin Human Regular 40 unit/ Total Parenteral Nutrition/Amino Acids/Dextrose/ Fat Emulsion Intravenous 1,400 ml @ 58.333 mls/ hr TPN CONT IV Last administered on 07/31/19at 21:54; Start 07/31/19 at 22:00; Stop 08/01/19 at 21:59; Status DC Sodium Chloride 1,000 ml @ 1,000 mls/hr Q1H PRN IV hypotension; Start 08/01/19 at 09:35; Stop 08/01/19 at 15:34; Status DC Albumin Human 200 ml @ 200 mls/hr 1X PRN PRN IV Hypotension; Start 08/01/19 at 09:45; Stop 08/01/19 at 15:44; Status DC Diphenhydramine HCl (Benadryl) 25 mg 1X PRN PRN IV ITCHING; Start 08/01/19 at 09:45; Stop 08/02/19 at 09:44; Status DC Diphenhydramine HCl (Benadryl) 25 mg 1X PRN PRN IV ITCHING; Start 08/01/19 at 09:45; Stop 08/02/19 at 09:44; Status DC Sodium Chloride 1,000 ml @ 400 mls/hr Q2H30M PRN IV PATENCY; Start 08/01/19 at 09:35; Stop 08/01/19 at 21:34; Status DC Info (PHARMACY MONITORING -- do not chart) 1 each PRN DAILY PRN MC SEE COMMENTS; Start 08/01/19 at 09:45; Status Cancel Sodium Chloride 100 meq/Potassium Phosphate 19 mmol/ Magnesium Sulfate 12 meq/Calcium Gluconate 15 meq/ Multivitamins 10 ml/Chromium/ Copper/Manganese/ Seleni/Zn 0.5 ml/ Insulin Human Regular 40 unit/ Potassium Chloride 20 meq/ Total Parenteral Nutrition/Amino Acids/Dextrose/ Fat Emulsion Intravenous 1,400 ml @ 58.333 mls/ hr TPN CONT IV Last administered on 08/01/19at 22:02; Start 08/01/19 at 22:00; Stop 08/02/19 at 21:59; Status DC Furosemide (Lasix) 40 mg 1X ONCE IVP Last administered on 08/01/19at 14:39; Start 08/01/19 at 14:30; Stop 08/01/19 at 14:31; Status DC Metronidazole 100 ml @ 100 mls/hr Q8HRS IV Last administered on 08/09/19at 06:04; Start 08/02/19 at 10:00; Stop 08/09/19 at 08:10; Status DC Sodium Chloride 1,000 ml @ 1,000 mls/hr Q1H PRN IV hypotension; Start 08/02/19 at 08:00; Stop 08/02/19 at 13:59; Status DC Albumin Human 200 ml @ 200 mls/hr 1X PRN PRN IV Hypotension; Start 08/02/19 at 08:00; Stop 08/02/19 at 13:59; Status DC Sodium Chloride 1,000 ml @ 400 mls/hr Q2H30M PRN IV PATENCY; Start 08/02/19 at 08:00; Stop 08/02/19 at 19:59; Status DC Info (PHARMACY MONITORING -- do not chart) 1 each PRN DAILY PRN MC SEE COMMENTS; Start 08/02/19 at 11:30; Status UNV Info (PHARMACY MONITORING -- do not chart) 1 each PRN DAILY PRN MC SEE COMMENTS; Start 08/02/19 at 11:30; Stop 08/04/19 at 12:13; Status DC Sodium Chloride 100 meq/Potassium Phosphate 19 mmol/ Magnesium Sulfate 12 meq/Calcium Gluconate 15 meq/ Multivitamins 10 ml/Chromium/ Copper/Manganese/ Seleni/Zn 0.5 ml/ Insulin Human Regular 40 unit/ Potassium Chloride 20 meq/ Total Parenteral Nutrition/Amino Acids/Dextrose/ Fat Emulsion Intravenous 1,400 ml @ 58.333 mls/ hr TPN CONT IV Last administered on 08/02/19at 21:52; Start 08/02/19 at 22:00; Stop 08/03/19 at 21:59; Status DC Sodium Chloride (Normal Saline Flush) 10 ml QSHIFT PRN IV AFTER MEDS AND BLOOD DRAWS; Start 08/02/19 at 15:00; Stop 08/30/19 at 11:27; Status DC Sodium Chloride (Normal Saline Flush) 10 ml PRN Q5MIN PRN IV AFTER MEDS AND BLOOD DRAWS; Start 08/02/19 at 15:00; Stop 11/19/19 at 10:12; Status DC Sodium Chloride (Normal Saline Flush) 20 ml PRN Q5MIN PRN IV AFTER MEDS AND BLOOD DRAWS; Start 08/02/19 at 15:00 Sodium Chloride 100 meq/Potassium Phosphate 19 mmol/ Magnesium Sulfate 12 meq/Calcium Gluconate 15 meq/ Multivitamins 10 ml/Chromium/ Copper/Manganese/ Seleni/Zn 0.5 ml/ Insulin Human Regular 40 unit/ Potassium Chloride 20 meq/ Total Parenteral Nutrition/Amino Acids/Dextrose/ Fat Emulsion Intravenous 1,400 ml @ 58.333 mls/ hr TPN CONT IV Last administered on 08/03/19at 21:20; Start 08/03/19 at 22:00; Stop 08/04/19 at 21:59; Status DC Lidocaine HCl (Buffered Lidocaine 1%) 3 ml STK-MED ONCE .ROUTE ; Start 08/03/19 at 13:16; Stop 08/03/19 at 13:16; Status DC Lidocaine HCl (Buffered Lidocaine 1%) 6 ml 1X ONCE INJ Last administered on 08/03/19at 13:45; Start 08/03/19 at 13:30; Stop 08/03/19 at 13:31; Status DC Albumin Human 100 ml @ 100 mls/hr 1X ONCE IV Last administered on 08/03/19at 15:41; Start 08/03/19 at 15:00; Stop 08/03/19 at 15:59; Status DC Albumin Human 50 ml @ 50 mls/hr 1X ONCE IV Last administered on 08/03/19at 15:00; Start 08/03/19 at 15:00; Stop 08/03/19 at 15:59; Status DC Info (PHARMACY MONITORING -- do not chart) 1 each PRN DAILY PRN MC SEE COMMENT S; Start 08/04/19 at 11:30; Status Cancel Info (PHARMACY MONITORING -- do not chart) 1 each PRN DAILY PRN MC SEE COMMENTS; Start 08/04/19 at 11:30; Status UNV Sodium Chloride 100 meq/Potassium Phosphate 10 mmol/ Magnesium Sulfate 12 meq/Calcium Gluconate 15 meq/ Multivitamins 10 ml/Chromium/ Copper/Manganese/ Seleni/Zn 0.5 ml/ Insulin Human Regular 35 unit/ Potassium Chloride 20 meq/ Total Parenteral Nutrition/Amino Acids/Dextrose/ Fat Emulsion Intravenous 1,400 ml @ 58.333 mls/ hr TPN CONT IV Last administered on 08/04/19at 22:10; Start 08/04/19 at 22:00; Stop 08/05/19 at 21:59; Status DC Sodium Chloride 100 meq/Potassium Phosphate 5 mmol/ Magnesium Sulfate 12 meq/Calcium Gluconate 15 meq/ Multivitamins 10 ml/Chromium/ Copper/Manganese/ Seleni/Zn 0.5 ml/ Insulin Human Regular 35 unit/ Potassium Chloride 20 meq/ Total Parenteral Nutrition/Amino Acids/Dextrose/ Fat Emulsion Intravenous 1,400 ml @ 58.333 mls/ hr TPN CONT IV Last administered on 08/05/19at 22:59; Start 08/05/19 at 22:00; Stop 08/06/19 at 21:59; Status DC Sodium Chloride 1,000 ml @ 1,000 mls/hr Q1H PRN IV hypotension; Start 08/06/19 at 08:27; Stop 08/06/19 at 14:26; Status DC Albumin Human 200 ml @ 200 mls/hr 1X PRN PRN IV Hypotension Last administered on 08/06/19at 09:18; Start 08/06/19 at 08:30; Stop 08/06/19 at 14:29; Status DC Sodium Chloride 1,000 ml @ 400 mls/hr Q2H30M PRN IV PATENCY; Start 08/06/19 at 08:27; Stop 08/06/19 at 20:26; Status DC Info (PHARMACY MONITORING -- do not chart) 1 each PRN DAILY PRN MC SEE COMMENTS; Start 08/06/19 at 08:30; Status Cancel Info (PHARMACY MONITORING -- do not chart) 1 each PRN DAILY PRN MC SEE COMMENTS; Start 08/06/19 at 08:30; Stop 08/14/19 at 13:10; Status DC Sodium Chloride 100 meq/Potassium Chloride 40 meq/ Magnesium Sulfate 15 meq/Ca lcium Gluconate 15 meq/ Multivitamins 10 ml/Chromium/ Copper/Manganese/ Seleni/Zn 0.5 ml/ Insulin Human Regular 35 unit/ Total Parenteral Nutrition/Amino Acids/Dextrose/ Fat Emulsion Intravenous 1,400 ml @ 58.333 mls/ hr TPN CONT IV Last administered on 08/06/19at 22:00; Start 08/06/19 at 22:00; Stop 08/07/19 at 21:59; Status DC Potassium Chloride/Water 100 ml @ 100 mls/hr 1X ONCE IV Last administered on 08/06/19at 17:28; Start 08/06/19 at 14:45; Stop 08/06/19 at 15:44; Status DC Sodium Chloride 100 meq/Potassium Chloride 40 meq/ Magnesium Sulfate 15 meq/Calcium Gluconate 15 meq/ Multivitamins 10 ml/Chromium/ Copper/Manganese/ Seleni/Zn 0.5 ml/ Insulin Human Regular 35 unit/ Total Parenteral Nutrition/Amino Acids/Dextrose/ Fat Emulsion Intravenous 1,400 ml @ 58.333 mls/ hr TPN CONT IV Last administered on 08/07/19at 22:46; Start 08/07/19 at 22:00; Stop 08/08/19 at 21:59; Status DC Sodium Chloride 100 meq/Potassium Chloride 40 meq/ Magnesium Sulfate 20 meq/Calcium Gluconate 15 meq/ Multivitamins 10 ml/Chromium/ Copper/Manganese/ Seleni/Zn 0.5 ml/ Insulin Human Regular 35 unit/ Total Parenteral Nutrition/Amino Acids/Dextrose/ Fat Emulsion Intravenous 1,400 ml @ 58.333 mls/ hr TPN CONT IV Last administered on 08/08/19at 22:31; Start 08/08/19 at 22:00; Stop 08/09/19 at 21:59; Status DC Fentanyl Citrate (Fentanyl 2ml Vial) 50 mcg PRN Q2HR PRN IVP PAIN Last administered on 08/15/19at 13:32; Start 08/08/19 at 21:00; Stop 08/16/19 at 12:53; Status DC Fentanyl Citrate (Fentanyl 2ml Vial) 25 mcg PRN Q2HR PRN IVP PAIN; Start 08/08/19 at 21:00; Stop 08/16/19 at 12:54; Status DC Enoxaparin Sodium (Lovenox 100mg Syringe) 100 mg Q12HR SQ ; Start 08/09/19 at 21:00; Status UNV Amino Acids/ Glycerin/ Electrolytes 1,000 ml @ 75 mls/hr [id number] IV ; Start 08/08/19 at 21:15; Status UNV Sodium Chloride 1,000 ml @ 1,000 mls/hr Q1H PRN IV hypotension; Start 08/09/19 at 07:56; Stop 08/09/19 at 13:55; Status DC Albumin Human 200 ml @ 200 mls/hr 1X PRN PRN IV Hypotension Last administered on 08/09/19at 08:40; Start 08/09/19 at 08:00; Stop 08/09/19 at 13:59; Status DC Sodium Chloride 1,000 ml @ 400 mls/hr Q2H30M PRN IV PATENCY; Start 08/09/19 at 07:56; Stop 08/09/19 at 19:55; Status DC Info (PHARMACY MONITORING -- do not chart) 1 each PRN DAILY PRN MC SEE COMMENTS; Start 08/09/19 at 08:00; Status UNV Info (PHARMACY MONITORING -- do not chart) 1 each PRN DAILY PRN MC SEE COMMENTS; Start 08/09/19 at 08:00; Status UNV Daptomycin 430 mg/ Sodium Chloride 50 ml @ 100 mls/hr Q24H IV Last administered on 08/09/19at 12:35; Start 08/09/19 at 09:00; Stop 08/09/19 at 12:49; Status DC Sodium Chloride 100 meq/Potassium Chloride 40 meq/ Magnesium Sulfate 20 meq/Calcium Gluconate 15 meq/ Multivitamins 10 ml/Chromium/ Copper/Manganese/ Seleni/Zn 0.5 ml/ Insulin Human Regular 35 unit/ Total Parenteral Nutrition/Amino Acids/Dextrose/ Fat Emulsion Intravenous 1,400 ml @ 58.333 mls/ hr TPN CONT IV Last administered on 08/09/19at 21:26; Start 08/09/19 at 22:00; Stop 08/10/19 at 21:59; Status DC Daptomycin 430 mg/ Sodium Chloride 50 ml @ 100 mls/hr Q48H IV ; Start 08/11/19 at 09:00; Stop 08/10/19 at 11:55; Status DC Sodium Chloride 100 meq/Potassium Chloride 40 meq/ Magnesium Sulfate 20 meq/Calcium Gluconate 15 meq/ Multivitamins 10 ml/Chromium/ Copper/Manganese/ Seleni/Zn 0.5 ml/ Insulin Human Regular 35 unit/ Total Parenteral Nutrition/Amino Acids/Dextrose/ Fat Emulsion Intravenous 1,400 ml @ 58.333 mls/ hr TPN CONT IV Last administered on 08/10/19at 22:27; Start 08/10/19 at 22:00; Stop 08/11/19 at 21:59; Status DC Daptomycin 430 mg/ Sodium Chloride 50 ml @ 100 mls/hr Q24H IV Last administered on 08/12/19at 15:07; Start 08/10/19 at 13:00; Stop 08/13/19 at 13:15; Status DC Sodium Chloride 100 meq/Potassium Chloride 40 meq/ Magnesium Sulfate 20 meq/Calcium Gluconate 10 meq/ Multivitamins 10 ml/Chromium/ Copper/Manganese/ Seleni/Zn 0.5 ml/ Insulin Human Regular 35 unit/ Total Parenteral Nutrition/Amino Acids/Dextrose/ Fat Emulsion Intravenous 1,400 ml @ 58.333 mls/ hr TPN CONT IV Last administered on 08/12/19at 00:06; Start 08/11/19 at 22:00; Stop 08/12/19 at 21:59; Status DC Alteplase, Recombinant (Cathflo For Central Catheter Clearance) 1 mg 1X ONCE INT CAT Last administered on 08/12/19at 11:44; Start 08/12/19 at 10:45; Stop 08/12/19 at 10:46; Status DC Ondansetron HCl (Zofran) 4 mg PRN Q6HRS PRN IV NAUSEA/VOMITING; Start 08/15/19 at 07:00; Stop 08/16/19 at 06:59; Status DC Fentanyl Citrate (Fentanyl 2ml Vial) 25 mcg PRN Q5MIN PRN IV MILD PAIN 1-3; Start 08/15/19 at 07:00; Stop 08/16/19 at 06:59; Status DC Fentanyl Citrate (Fentanyl 2ml Vial) 50 mcg PRN Q5MIN PRN IV MODERATE TO SEVERE PAIN Last administered on 08/15/19at 10:17; Start 08/15/19 at 07:00; Stop 08/16/19 at 06:59; Status DC Ringer's Solution 1,000 ml @ 30 mls/hr Q24H IV ; Start 08/15/19 at 07:00; Stop 08/15/19 at 18:59; Status DC Lidocaine HCl (Xylocaine-Mpf 1% 2ml Vial) 2 ml PRN 1X PRN ID PRIOR TO IV START; Start 08/15/19 at 07:00; Stop 08/16/19 at 06:59; Status DC Prochlorperazine Edisylate (Compazine) 5 mg PACU PRN PRN IV NAUSEA, MRX1; Start 08/15/19 at 07:00; Stop 08/16/19 at 06:59; Status DC Sodium Acetate 50 meq/Potassium Acetate 55 meq/ Magnesium Sulfate 20 meq/Calcium Gluconate 10 meq/ Multivitamins 10 ml/Chromium/ Copper/Manganese/ Seleni/Zn 0.5 ml/ Insulin Human Regular 35 unit/ Total Parenteral Nutrition/Amino Acids/Dextrose/ Fat Emulsion Intravenous 1,400 ml @ 58.333 mls/ hr TPN CONT IV ; Start 08/12/19 at 22:00; Stop 08/12/19 at 14:15; Status DC Sodium Acetate 50 meq/Potassium Acetate 55 meq/ Magnesium Sulfate 20 meq/Calcium Gluconate 10 meq/ Multivitamins 10 ml/Chromium/ Copper/Manganese/ Seleni/Zn 0.5 ml/ Insulin Human Regular 35 unit/ Total Parenteral Nutrition/Amino Acids/Dextrose/ Fat Emulsion Intravenous 1,800 ml @ 75 mls/hr TPN CONT IV Last administered on 08/12/19at 22:38; Start 08/12/19 at 22:00; Stop 08/13/19 at 21:59; Status DC Sodium Chloride 1,000 ml @ 1,000 mls/hr Q1H PRN IV hypotension; Start 08/12/19 at 15:31; Stop 08/12/19 at 21:30; Status DC Diphenhydramine HCl (Benadryl) 25 mg 1X PRN PRN IV ITCHING; Start 08/12/19 at 15:45; Stop 08/13/19 at 15:44; Status DC Diphenhydramine HCl (Benadryl) 25 mg 1X PRN PRN IV ITCHING; Start 08/12/19 at 15:45; Stop 08/13/19 at 15:44; Status DC Sodium Chloride 1,000 ml @ 400 mls/hr Q2H30M PRN IV PATENCY; Start 08/12/19 at 15:31; Stop 08/13/19 at 03:30; Status DC Info (PHARMACY MONITORING -- do not chart) 1 each PRN DAILY PRN MC SEE COMMENTS; Start 08/12/19 at 15:45; Stop 09/13/19 at 14:14; Status DC Sodium Acetate 50 meq/Potassium Acetate 55 meq/ Magnesium Sulfate 20 meq/Calcium Gluconate 10 meq/ Multivitamins 10 ml/Chromium/ Copper/Manganese/ Seleni/Zn 0.5 ml/ Insulin Human Regular 35 unit/ Total Parenteral Nutrition/Amino Acids/Dextrose/ Fat Emulsion Intravenous 1,800 ml @ 75 mls/hr TPN CONT IV Last administered on 08/13/19at 22:03; Start 08/13/19 at 22:00; Stop 08/14/19 at 21:59; Status DC Daptomycin 430 mg/ Sodium Chloride 50 ml @ 100 mls/hr Q24H IV Last administered on 08/18/19at 13:00; Start 08/13/19 at 13:00; Stop 08/18/19 at 20:58; Status DC Heparin Sodium (Porcine) 1000 unit/Sodium Chloride 1,001 ml @ 1,001 mls/hr 1X ONCE IRR ; Start 08/15/19 at 06:00; Stop 08/15/19 at 06:59; Status DC Potassium Acetate 55 meq/Magnesium Sulfate 20 meq/ Calcium Gluconate 10 meq/ Multivitamins 10 ml/Chromium/ Copper/Manganese/ Seleni/Zn 0.5 ml/ Insulin Human Regular 35 unit/ Total Parenteral Nutrition/Amino Acids/Dextrose/ Fat Emulsion Intravenous 1,920 ml @ 80 mls/hr TPN CONT IV Last administered on 08/14/19at 22:10; Start 08/14/19 at 22:00; Stop 08/15/19 at 21:59; Status DC Dexamethasone Sodium Phosphate (Decadron) 4 mg STK-MED ONCE .ROUTE ; Start 08/15/19 at 10:56; Stop 08/15/19 at 10:57; Status DC Ondansetron HCl (Zofran) 4 mg STK-MED ONCE .ROUTE ; Start 08/15/19 at 10:56; Stop 08/15/19 at 10:57; Status DC Rocuronium [place] (Zemuron) 50 mg STK-MED ONCE .ROUTE ; Start 08/15/19 at 10:56; Stop 08/15/19 at 10:57; Status DC Fentanyl Citrate (Fentanyl 2ml Vial) 100 mcg STK-MED ONCE .ROUTE ; Start 08/15/19 at 10:56; Stop 08/15/19 at 10:57; Status DC Bupivacaine HCl/ Epinephrine Bitart (Sensorcain-Epi 0.5%-1:678006 Mpf) 30 ml STK-MED ONCE .ROUTE Last administered on 08/15/19at 12:01; Start 08/15/19 at 10:58; Stop 08/15/19 at 10:58; Status DC Cellulose (Surgicel Hemostat 2x14) 1 each STK-MED ONCE .ROUTE ; Start 08/15/19 at 10:58; Stop 08/15/19 at 10:59; Status DC Iohexol (Omnipaque 300 Mg/ml) 50 ml STK-MED ONCE .ROUTE ; Start 08/15/19 at 10:58; Stop 08/15/19 at 10:59; Status DC Cellulose (Surgicel Hemostat 4x8) 1 each STK-MED ONCE .ROUTE ; Start 08/15/19 at 10:58; Stop 08/15/19 at 10:59; Status DC Bisacodyl (Dulcolax Supp) 10 mg STK-MED ONCE .ROUTE ; Start 08/15/19 at 10:59; Stop 08/15/19 at 10:59; Status DC Heparin Sodium (Porcine) 1000 unit/Sodium Chloride 1,001 ml @ 1,001 mls/hr 1X ONCE IRR ; Start 08/15/19 at 12:00; Stop 08/15/19 at 12:59; Status DC Propofol 20 ml @ As Directed STK-MED ONCE IV ; Start 08/15/19 at 11:05; Stop 08/15/19 at 11:05; Status DC Sevoflurane (Ultane) 90 ml STK-MED ONCE IH ; Start 08/15/19 at 11:05; Stop 08/15/19 at 11:05; Status DC Sevoflurane (Ultane) 60 ml STK-MED ONCE IH ; Start 08/15/19 at 12:26; Stop 08/15/19 at 12:27; Status DC Propofol 20 ml @ As Directed STK-MED ONCE IV ; Start 08/15/19 at 12:26; Stop 08/15/19 at 12:27; Status DC Phenylephrine HCl (PHENYLEPHRINE in 0.9% NACL PF) 1 mg STK-MED ONCE IV ; Start 08/15/19 at 12:34; Stop 08/15/19 at 12:34; Status DC Heparin Sodium (Porcine) (Heparin Sodium) 5,000 unit Q12HR SQ Last administered on 08/24/19at 20:57; Start 08/15/19 at 21:00; Stop 08/25/19 at 09:59; Status DC Sodium Chloride (Normal Saline Flush) 3 ml QSHIFT PRN IV AFTER MEDS AND BLOOD DRAWS; Start 08/15/19 at 13:45; Status Cancel Naloxone HCl (Narcan) 0.4 mg PRN Q2MIN PRN IV SEE INSTRUCTIONS Last administered on 09/24/19at 15:15; Start 08/15/19 at 13:45; Stop 10/19/19 at 16:00; Status DC Sodium Chloride 1,000 ml @ 25 mls/hr Q24H IV Last administered on 09/13/19at 13:37; Start 08/15/19 at 13:37; Stop 09/16/19 at 13:09; Status DC Naloxone HCl (Narcan) 0.4 mg PRN Q2MIN PRN IV SEE INSTRUCTIONS; Start 08/15/19 at 14:30; Status UNV Sodium Chloride 1,000 ml @ 25 mls/hr Q24H IV ; Start 08/15/19 at 14:30; Status UNV Hydromorphone HCl 30 ml @ 0 mls/hr CONT PRN PRN IV PER PROTOCOL Last administered on 08/20/19at 16:08; Start 08/15/19 at 14:30; Stop 08/22/19 at 08:55; Status DC Potassium Acetate 55 meq/Magnesium Sulfate 20 meq/ Calcium Gluconate 10 meq/ Multivitamins 10 ml/Chromium/ Copper/Manganese/ Seleni/Zn 0.5 ml/ Insulin Human Regular 35 unit/ Total Parenteral Nutrition/Amino Acids/Dextrose/ Fat Emulsion Intravenous 1,920 ml @ 80 mls/hr TPN CONT IV Last administered on 08/15/19at 22:01; Start 08/15/19 at 22:00; Stop 08/16/19 at 21:59; Status DC Bumetanide (Bumex) 2 mg [id number] IV Last administered on 08/19/19at 13:50; Start 08/16/19 at 14:00; Stop 08/20/19 at 14:10; Status DC Meropenem 1 gm/ Sodium Chloride 100 ml @ 200 mls/hr Q8HRS IV Last administered on 09/09/19at 05:53; Start 08/16/19 at 14:00; Stop 09/09/19 at 09:31; Status DC Potassium Acetate 55 meq/Magnesium Sulfate 20 meq/ Calcium Gluconate 10 meq/ Multivitamins 10 ml/Chromium/ Copper/Manganese/ Seleni/Zn 0.5 ml/ Insulin Human Regular 35 unit/ Total Parenteral Nutrition/Amino Acids/Dextrose/ Fat Emulsion Intravenous 1,920 ml @ 80 mls/hr TPN CONT IV Last administered on 08/16/19at 22:02; Start 08/16/19 at 22:00; Stop 08/17/19 at 21:59; Status DC Hydromorphone HCl (Dilaudid [employer]) 12 mg STK-MED ONCE IV ; Start 08/15/19 at 14:35; Stop 08/16/19 at 13:53; Status DC Artificial Tears (Artificial Tears) 1 drop PRN Q15MIN PRN OU DRY EYE Last administered on 10/11/19at 21:17; Start 08/17/19 at 05:30 Hydromorphone HCl (Dilaudid [employer]) 12 mg STK-MED ONCE IV ; Start 08/16/19 at 12:05; Stop 08/17/19 at 09:15; Status DC Potassium Acetate 65 meq/Magnesium Sulfate 20 meq/ Calcium Gluconate 10 meq/ Multivitamins 10 ml/Chromium/ Copper/Manganese/ Seleni/Zn 0.5 ml/ Insulin Human Regular 30 unit/ Total Parenteral Nutrition/Amino Acids/Dextrose/ Fat Emulsion Intravenous 1,920 ml @ 80 mls/hr TPN CONT IV Last administered on 08/17/19at 22:22; Start 08/17/19 at 22:00; Stop 08/18/19 at 21:59; Status DC Cyclobenzaprine HCl (Flexeril) 10 mg PRN Q6HRS PRN PO MUSCLE SPASMS Last administered on 12/02/19at 00:29; Start 08/18/19 at 10:45 Potassium Acetate 55 meq/Magnesium Sulfate 20 meq/ Calcium Gluconate 10 meq/ Multivitamins 10 ml/Chromium/ Copper/Manganese/ Seleni/Zn 0.5 ml/ Insulin Human Regular 30 unit/ Total Parenteral Nutrition/Amino Acids/Dextrose/ Fat Emulsion Intravenous 1,920 ml @ 80 mls/hr TPN CONT IV Last administered on 08/19/19at 01:00; Start 08/18/19 at 22:00; Stop 08/19/19 at 21:59; Status DC Magnesium Sulfate 50 ml @ 25 mls/hr 1X ONCE IV Last administered on 08/18/19at 17:18; Start 08/18/19 at 12:45; Stop 08/18/19 at 14:44; Status DC Potassium Chloride/Water 100 ml @ 100 mls/hr 1X ONCE IV Last administered on 08/19/19at 11:27; Start 08/19/19 at 12:00; Stop 08/19/19 at 12:59; Status DC Hydromorphone HCl (Dilaudid [employer]) 12 mg STK-MED ONCE IV ; Start 08/17/19 at 10:50; Stop 08/19/19 at 11:02; Status DC Hydromorphone HCl (Dilaudid [employer]) 12 mg STK-MED ONCE IV ; Start 08/18/19 at 13:47; Stop 08/19/19 at 11:03; Status DC Potassium Acetate 30 meq/Magnesium Sulfate 20 meq/ Calcium Gluconate 10 meq/ Multivitamins 10 ml/Chromium/ Copper/Manganese/ Seleni/Zn 0.5 ml/ Insulin Human Regular 30 unit/ Potassium Chloride 30 meq/ Total Parenteral Nutrition/Amino Acids/Dextrose/ Fat Emulsion Intravenous 1,920 ml @ 80 mls/hr TPN CONT IV Last administered on 08/19/19at 22:34; Start 08/19/19 at 22:00; Stop 08/20/19 at 21:59; Status DC Potassium Chloride/Water 100 ml @ 100 mls/hr Q1H IV Last administered on 08/20/19at 13:05; Start 08/20/19 at 07:00; Stop 08/20/19 at 10:59; Status DC Magnesium Sulfate 50 ml @ 25 mls/hr 1X ONCE IV Last administered on 08/20/19at 10:34; Start 08/20/19 at 10:30; Stop 08/20/19 at 12:29; Status DC Potassium Chloride 75 meq/ Magnesium Sulfate 20 meq/Calcium Gluconate 10 meq/ Multivitamins 10 ml/Chromium/ Copper/Manganese/ Seleni/Zn 0.5 ml/ Insulin Human Regular 30 unit/ Total Parenteral Nutrition/Amino Acids/Dextrose/ Fat Emulsion Intravenous 1,920 ml @ 80 mls/hr TPN CONT IV Last administered on 08/20/19at 21:51; Start 08/20/19 at 22:00; Stop 08/21/19 at 22:00; Status DC Potassium Chloride 75 meq/ Magnesium Sulfate 20 meq/Calcium Gluconate 10 meq/ Multivitamins 10 ml/Chromium/ Copper/Manganese/ Seleni/Zn 0.5 ml/ Insulin Human Regular 25 unit/ Total Parenteral Nutrition/Amino Acids/Dextrose/ Fat Emulsion Intravenous 1,920 ml @ 80 mls/hr TPN CONT IV Last administered on 08/21/19at 22:04; Start 08/21/19 at 22:00; Stop 08/22/19 at 21:59; Status DC Hydromorphone HCl (Dilaudid) 0.4 mg PRN Q4HRS PRN IVP PAIN Last administered on 08/22/19at 10:57; Start 08/22/19 at 09:00; Stop 08/22/19 at 18:59; Status DC Micafungin Sodium 100 mg/Dextrose 100 ml @ 100 mls/hr Q24H IV Last administered on 09/13/19at 12:17; Start 08/22/19 at 11:00; Stop 09/14/19 at 09:59; Status DC Daptomycin 485 mg/ Sodium Chloride 50 ml @ 100 mls/hr Q24H IV Last administered on 08/29/19at 13:10; Start 08/22/19 at 11:00; Stop 08/30/19 at 07:44; Status DC Potassium Chloride 75 meq/ Magnesium Sulfate 15 meq/Calcium Gluconate 8 meq/ Multivitamins 10 ml/Chromium/ Copper/Manganese/ Seleni/Zn 0.5 ml/ Insulin Human Regular 25 unit/ Total Parenteral Nutrition/Amino Acids/Dextrose/ Fat Emulsion Intravenous 1,920 ml @ 80 mls/hr TPN CONT IV Last administered on 08/22/19at 23:08; Start 08/22/19 at 22:00; Stop 08/23/19 at 21:59; Status DC Haloperidol Lactate (Haldol Inj) 3 mg 1X ONCE IVP Last administered on at 14:37; Start 08/22/19 at 14:30; Stop 08/22/19 at 14:31; Status DC Hydromorphone HCl (Dilaudid) 1 mg PRN Q4HRS PRN IVP PAIN Last administered on 09/05/19at 06:25; Start 08/22/19 at 19:00; Stop 09/05/19 at 17:10; Status DC Potassium Chloride 75 meq/ Magnesium Sulfate 15 meq/Calcium Gluconate 8 meq/ Multivitamins 10 ml/Chromium/ Copper/Manganese/ Seleni/Zn 0.5 ml/ Insulin Human Regular 20 unit/ Total Parenteral Nutrition/Amino Acids/Dextrose/ Fat Emulsion Intravenous 1,920 ml @ 80 mls/hr TPN CONT IV Last administered on 08/23/19at 22:10; Start 08/23/19 at 22:00; Stop 08/24/19 at 21:59; Status DC Lidocaine HCl (Buffered Lidocaine 1%) 3 ml STK-MED ONCE .ROUTE ; Start 08/24/19 at 11:31; Stop 08/24/19 at 11:31; Status DC Lidocaine HCl (Buffered Lidocaine 1%) 3 ml STK-MED ONCE .ROUTE ; Start 08/24/19 at 12:28; Stop 08/24/19 at 12:29; Status DC Lidocaine HCl (Buffered Lidocaine 1%) 6 ml 1X ONCE INJ Last administered on 08/24/19at 12:53; Start 08/24/19 at 12:45; Stop 08/24/19 at 12:46; Status DC Potassium Chloride 75 meq/ Magnesium Sulfate 15 meq/Calcium Gluconate 8 meq/ Multivitamins 10 ml/Chromium/ Copper/Manganese/ Seleni/Zn 0.5 ml/ Insulin Human Regular 20 unit/ Total Parenteral Nutrition/Amino Acids/Dextrose/ Fat Emulsion Intravenous 1,920 ml @ 80 mls/hr TPN CONT IV Last administered on 08/24/19at 22:00; Start 08/24/19 at 22:00; Stop 08/25/19 at 21:59; Status DC Potassium Chloride 75 meq/ Magnesium Sulfate 15 meq/Calcium Gluconate 8 meq/ Multivitamins 10 ml/Chromium/ Copper/Manganese/ Seleni/Zn 0.5 ml/ Insulin Human Regular 15 unit/ Total Parenteral Nutrition/Amino Acids/Dextrose/ Fat Emulsion Intravenous 1,920 ml @ 80 mls/hr TPN CONT IV Last administered on 08/25/19at 22:28; Start 08/25/19 at 22:00; Stop 08/26/19 at 21:59; Status DC Vecuronium [place] (Norcuron Bolus) 6 mg PRN Q6HRS PRN IV VENT ASYNCHRONY; Start 08/25/19 at 19:15; Stop 08/25/19 at 19:35; Status DC Bumetanide (Bumex) 2 mg 1X ONCE IV Last administered on 08/25/19at 22:09; Start 08/25/19 at 19:45; Stop 08/25/19 at 19:46; Status DC Lidocaine HCl (Buffered Lidocaine 1%) 3 ml STK-MED ONCE .ROUTE ; Start 08/26/19 at 07:59; Stop 08/26/19 at 07:59; Status DC Midazolam HCl (Versed) 5 mg STK-MED ONCE .ROUTE ; Start 08/26/19 at 08:36; Stop 08/26/19 at 08:36; Status DC Fentanyl Citrate (Fentanyl 5ml Vial) 250 mcg STK-MED ONCE .ROUTE ; Start 08/26/19 at 08:36; Stop 08/26/19 at 08:37; Status DC Lidocaine HCl (Buffered Lidocaine 1%) 3 ml 1X ONCE IJ Last administered on 08/26/19at 09:30; Start 08/26/19 at 09:15; Stop 08/26/19 at 09:16; Status DC Midazolam HCl (Versed) 5 mg 1X ONCE IV Last administered on 08/26/19at 09:30; Start 08/26/19 at 09:15; Stop 08/26/19 at 09:16; Status DC Fentanyl Citrate (Fentanyl 5ml Vial) 250 mcg 1X ONCE IV Last administered on 08/26/19at 09:30; Start 08/26/19 at 09:15; Stop 08/26/19 at 09:16; Status DC Bumetanide (Bumex) 2 mg DAILY IV Last administered on 09/05/19at 08:07; Start 08/26/19 at 10:00; Stop 09/05/19 at 17:15; Status DC Potassium Chloride 75 meq/ Magnesium Sulfate 15 meq/ Multivitamins 10 ml/Chromium/ Copper/Manganese/ Seleni/Zn 0.5 ml/ Insulin Human Regular 15 unit/ Total Parenteral Nutrition/Amino Acids/Dextrose/ Fat Emulsion Intravenous 1,920 ml @ 80 mls/hr TPN CONT IV Last administered on 08/26/19at 21:59; Start 08/26/19 at 22:00; Stop 08/27/19 at 21:59; Status DC Metoclopramide HCl (Reglan Vial) 10 mg PRN Q3HRS PRN IVP NAUSEA/VOMITING-3rd choice Last administered on 09/01/19at 04:25; Start 08/27/19 at 16:45 Potassium Chloride 75 meq/ Magnesium Sulfate 15 meq/ Multivitamins 10 ml/Chromium/ Copper/Manganese/ Seleni/Zn 0.5 ml/ Insulin Human Regular 15 unit/ Total Parenteral Nutrition/Amino Acids/Dextrose/ Fat Emulsion Intravenous 1,920 ml @ 80 mls/hr TPN CONT IV Last administered on 08/27/19at 22:41; Start 08/27/19 at 22:00; Stop 08/28/19 at 21:59; Status DC Magnesium Sulfate 50 ml @ 25 mls/hr 1X ONCE IV Last administered on 08/28/19at 10:44; Start 08/28/19 at 09:00; Stop 08/28/19 at 10:59; Status DC Potassium Chloride/Water 100 ml @ 100 mls/hr 1X ONCE IV Last administered on 08/28/19at 09:37; Start 08/28/19 at 09:00; Stop 08/28/19 at 09:59; Status DC Duloxetine HCl (Cymbalta) 30 mg DAILY PO Last administered on 08/29/19at 09:48; Start 08/28/19 at 14:00; Stop 08/31/19 at 10:25; Status DC Potassium Chloride 80 meq/ Magnesium Sulfate 20 meq/ Multivitamins 10 ml/Chromium/ Copper/Manganese/ Seleni/Zn 0.5 ml/ Insulin Human Regular 15 unit/ Total Parenteral Nutrition/Amino Acids/Dextrose/ Fat Emulsion Intravenous 1,920 ml @ 80 mls/hr TPN CONT IV Last administered on 08/28/19at 21:42; Start 08/28/19 at 22:00; Stop 08/29/19 at 21:59; Status DC Potassium Chloride 80 meq/ Magnesium Sulfate 20 meq/ Multivitamins 10 ml/Chromium/ Copper/Manganese/ Seleni/Zn 0.5 ml/ Insulin Human Regular 15 unit/ Total Parenteral Nutrition/Amino Acids/Dextrose/ Fat Emulsion Intravenous 1,920 ml @ 80 mls/hr TPN CONT IV Last administered on 08/29/19at 22:20; Start 08/29/19 at 22:00; Stop 08/30/19 at 21:59; Status DC Lidocaine HCl (Buffered Lidocaine 1%) 3 ml STK-MED ONCE .ROUTE ; Start 08/30/19 at 09:54; Stop 08/30/19 at 09:55; Status DC Hydromorphone HCl (Dilaudid [employer]) 12 mg STK-MED ONCE IV ; Start 08/19/19 at 15:50; Stop 08/30/19 at 11:24; Status DC Potassium Chloride 80 meq/ Magnesium Sulfate 20 meq/ Multivitamins 10 ml/Chromium/ Copper/Manganese/ Seleni/Zn 0.5 ml/ Insulin Human Regular 15 unit/ Total Parenteral Nutrition/Amino Acids/Dextrose/ Fat Emulsion Intravenous 1,920 ml @ 80 mls/hr TPN CONT IV Last administered on 08/30/19at 21:40; Start 08/30/19 at 22:00; Stop 08/31/19 at 21:59; Status DC Lidocaine HCl (Buffered Lidocaine 1%) 6 ml 1X ONCE INJ Last administered on 08/30/19at 14:15; Start 08/30/19 at 14:15; Stop 08/30/19 at 14:16; Status DC Potassium Chloride 80 meq/ Magnesium Sulfate 20 meq/ Multivitamins 10 ml/Chromium/ Copper/Manganese/ Seleni/Zn 1 ml/ Insulin Human Regular 15 unit/ Total Parenteral Nutrition/Amino Acids/Dextrose/ Fat Emulsion Intravenous 1,920 ml @ 80 mls/hr TPN CONT IV Last administered on 08/31/19at 22:04; Start 08/31/19 at 22:00; Stop 09/01/19 at 21:59; Status DC Potassium Chloride/Water 100 ml @ 100 mls/hr 1X ONCE IV Last administered on 09/01/19at 11:34; Start 09/01/19 at 11:00; Stop 09/01/19 at 11:59; Status DC Potassium Chloride 90 meq/ Magnesium Sulfate 20 meq/ Multivitamins 10 ml/Chromium/ Copper/Manganese/ Seleni/Zn 1 ml/ Insulin Human Regular 15 unit/ Total Parenteral Nutrition/Amino Acids/Dextrose/ Fat Emulsion Intravenous 1,920 ml @ 80 mls/hr TPN CONT IV Last administered on 09/01/19at 22:57; Start 09/01/19 at 22:00; Stop 09/02/19 at 21:59; Status DC Potassium Chloride 90 meq/ Magnesium Sulfate 20 meq/ Multivitamins 10 ml/Chromium/ Copper/Manganese/ Seleni/Zn 1 ml/ Insulin Human Regular 15 unit/ Total Parenteral Nutrition/Amino Acids/Dextrose/ Fat Emulsion Intravenous 1,920 ml @ 80 mls/hr TPN CONT IV Last administered on 09/02/19at 22:48; Start 09/01 at 22:00; Stop 09/03/19 at 21:59; Status DC Potassium Chloride 90 meq/ Magnesium Sulfate 20 meq/ Multivitamins 10 ml/Chromi um/ Copper/Manganese/ Seleni/Zn 1 ml/ Insulin Human Regular 15 unit/ Total Parenteral Nutrition/Amino Acids/Dextrose/ Fat Emulsion Intravenous 1,890 ml @ 78.75 mls/ hr TPN CONT IV Last administered on 09/03/19at 22:15; Start 09/03/19 at 22:00; Stop 09/04/19 at 21:59; Status DC Linezolid/Dextrose 300 ml @ 300 mls/hr Q12HR IV Last administered on 09/06/19at 21:08; Start 09/04/19 at 09:00; Stop 09/07/19 at 08:11; Status DC Daptomycin 450 mg/ Sodium Chloride 50 ml @ 100 mls/hr Q24H IV Last administered on 09/07/19at 09:25; Start 09/04/19 at 09:00; Stop 09/08/19 at 08:30; Status DC Potassium Chloride 90 meq/ Magnesium Sulfate 20 meq/ Multivitamins 10 ml/Chromium/ Copper/Manganese/ Seleni/Zn 1 ml/ Insulin Human Regular 15 unit/ Total Parenteral Nutrition/Amino Acids/Dextrose/ Fat Emulsion Intravenous 1,890 ml @ 78.75 mls/ hr TPN CONT IV Last administered on 09/04/19at 21:34; Start 09/04/19 at 22:00; Stop 09/05/19 at 21:59; Status DC Lorazepam (Ativan Inj) 2 mg STK-MED ONCE .ROUTE ; Start 09/04/19 at 14:58; Stop 09/04/19 at 14:58; Status DC Metoprolol Tartrate (Lopressor Vial) 5 mg 1X ONCE IVP Last administered on 09/04/19at 15:31; Start 09/04/19 at 15:15; Stop 09/04/19 at 15:16; Status DC Lorazepam (Ativan Inj) 2 mg 1X ONCE IVP Last administered on 09/04/19at 15:30; Start 09/04/19 at 15:15; Stop 09/04/19 at 15:16; Status DC Enoxaparin Sodium (Lovenox 40mg Syringe) 40 mg Q24H SQ Last administered on 09/23/19at 17:44; Start 09/04/19 at 17:00; Stop 09/25/19 at 06:50; Status DC Lorazepam (Ativan Inj) 1 mg PRN Q4HRS PRN IVP ANXIETY / AGITATION MILD-MOD Last administered on 09/18/19at 15:55; Start 09/04/19 at 19:15; Stop 09/20/19 at 11:45; Status DC Lorazepam (Ativan Inj) 2 mg PRN Q4HRS PRN IVP ANXIETY / AGITATION SEVERE Last administered on 09/19/19at 07:55; Start 09/04/19 at 19:15; Stop 09/20/19 at 11:45; Status DC Fentanyl Citrate (Fentanyl 2ml Vial) 50 mcg PRN Q4HRS PRN IVP SEVERE PAIN Last administered on 10/01/19at 05:15; Start 09/05/19 at 13:15; Stop 10/02/19 at 09:29; Status DC Fentanyl Citrate (Fentanyl 2ml Vial) 25 mcg PRN Q4HRS PRN IVP MODERATE PAIN Last administered on 10/01/19at 00:27; Start 09/05/19 at 13:15; Stop 10/02/19 at 09:30; Status DC Potassium Chloride 90 meq/ Magnesium Sulfate 20 meq/ Multivitamins 10 ml/Chromium/ Copper/Manganese/ Seleni/Zn 1 ml/ Insulin Human Regular 15 unit/ Total Parenteral Nutrition/Amino Acids/Dextrose/ Fat Emulsion Intravenous 1,890 ml @ 78.75 mls/ hr TPN CONT IV Last administered on 09/05/19at 22:18; Start 09/05/19 at 22:00; Stop 09/06/19 at 21:59; Status DC Furosemide (Lasix) 40 mg 1X ONCE IVP Last administered on 09/05/19at 21:51; Start 09/05/19 at 21:45; Stop 09/05/19 at 21:48; Status DC Albumin Human 100 ml @ 100 mls/hr 1X PRN PRN IV SEE COMMENTS; Start 09/06/19 at 01:30; Stop 11/21/19 at 09:52; Status DC Furosemide (Lasix) 40 mg [id number] IVP Last administered on 09/21/19at 08:04; Start 09/06/19 at 14:00; Stop 09/21/19 at 13:07; Status DC Potassium Chloride 90 meq/ Magnesium Sulfate 20 meq/ Multivitamins 10 ml/Chromium/ Copper/Manganese/ Seleni/Zn 1 ml/ Insulin Human Regular 15 unit/ Total Parenteral Nutrition/Amino Acids/Dextrose/ Fat Emulsion Intravenous 1,800 ml @ 75 mls/hr TPN CONT IV Last administered on 09/06/19at 22:31; Start 09/06/19 at 22:00; Stop 09/07/19 at 21:59; Status DC Potassium Chloride 90 meq/ Magnesium Sulfate 20 meq/ Multivitamins 10 ml/Chromium/ Copper/Manganese/ Seleni/Zn 1 ml/ Insulin Human Regular 15 unit/ To anthony Parenteral Nutrition/Amino Acids/Dextrose/ Fat Emulsion Intravenous 1,800 ml @ 75 mls/hr TPN CONT IV Last administered on 09/07/19at 22:28; Start 09/07/19 at 22:00; Stop 09/08/19 at 21:59; Status DC Potassium Chloride 110 meq/ Magnesium Sulfate 20 meq/ Multivitamins 10 ml/Chromium/ Copper/Manganese/ Seleni/Zn 1 ml/ Insulin Human Regular 15 unit/ Total Parenteral Nutrition/Amino Acids/Dextrose/ Fat Emulsion Intravenous 1,800 ml @ 75 mls/hr TPN CONT IV Last administered on 09/08/19at 22:01; Start at 22:00; Stop 09/09/19 at 21:59; Status DC Saliva Substitute (Biotene Moisturizing Mouth) 2 spray PRN Q15MIN PRN PO DRY MOUTH; Start 09/08/19 at 11:00 Potassium Chloride 110 meq/ Magnesium Sulfate 20 meq/ Multivitamins 10 ml/Chromium/ Copper/Manganese/ Seleni/Zn 1 ml/ Insulin Human Regular 15 unit/ Total Parenteral Nutrition/Amino Acids/Dextrose/ Fat Emulsion Intravenous 1,800 ml @ 75 mls/hr TPN CONT IV Last administered on 09/09/19at 22:21; Start 09/09/19 at 22:00; Stop 09/10/19 at 21:59; Status DC Potassium Chloride 110 meq/ Magnesium Sulfate 20 meq/ Multivitamins 10 ml/Chromium/ Copper/Manganese/ Seleni/Zn 1 ml/ Insulin Human Regular 15 unit/ Total Parenteral Nutrition/Amino Acids/Dextrose/ Fat Emulsion Intravenous 1,800 ml @ 75 mls/hr TPN CONT IV Last administered on 09/10/19at 22:04; Start 09/10/19 at 22:00; Stop 09/11/19 at 21:59; Status DC Potassium Chloride 110 meq/ Magnesium Sulfate 20 meq/ Multivitamins 10 ml/Chromium/ Copper/Manganese/ Seleni/Zn 1 ml/ Insulin Human Regular 15 unit/ T otal Parenteral Nutrition/Amino Acids/Dextrose/ Fat Emulsion Intravenous 1,800 ml @ 75 mls/hr TPN CONT IV Last administered on 09/11/19at 22:48; Start 09/11/19 at 22:00; Stop 09/12/19 at 21:59; Status DC Potassium Chloride 70 meq/ Magnesium Sulfate 20 meq/ Multivitamins 10 ml/Chromium/ Copper/Manganese/ Seleni/Zn 1 ml/ Insulin Human Regular 15 unit/ Total Parenteral Nutrition/Amino Acids/Dextrose/ Fat Emulsion Intravenous 1,800 ml @ 75 mls/hr TPN CONT IV Last administered on 09/12/19at 21:39; Start at 22:00; Stop 09/13/19 at 21:59; Status DC Meropenem 500 mg/ Sodium Chloride 50 ml @ 100 mls/hr Q6HRS IV Last administ ered on 09/14/19at 06:02; Start 09/12/19 at 18:00; Stop 09/14/19 at 09:59; Status DC Barium Sulfate (Varibar Thin Liquid Apple) 148 gm 1X ONCE PO ; Start 09/13/19 at 11:45; Stop 09/13/19 at 11:49; Status DC Potassium Chloride 70 meq/ Magnesium Sulfate 20 meq/ Multivitamins 10 ml/Chromium/ Copper/Manganese/ Seleni/Zn 1 ml/ Insulin Human Regular 15 unit/ Total Parenteral Nutrition/Amino Acids/Dextrose/ Fat Emulsion Intravenous 1,800 ml @ 75 mls/hr TPN CONT IV Last administered on 09/13/19at 22:27; Start 09/13/19 at 22:00; Stop 09/14/19 at 21:59; Status DC Piperacillin Sod/ Tazobactam Sod 3.375 gm/Sodium Chloride 50 ml @ 100 mls/hr Q6HRS IV Last administered on 09/22/19at 06:10; Start 09/14/19 at 12:00; Stop 09/22/19 at 07:26; Status DC Potassium Chloride 70 meq/ Magnesium Sulfate 20 meq/ Multivitamins 10 ml/Chromium/ Copper/Manganese/ Seleni/Zn 1 ml/ Insulin Human Regular 15 unit/ Total Parenteral Nutrition/Amino Acids/Dextrose/ Fat Emulsion Intravenous 1,800 ml @ 75 mls/hr TPN CONT IV Last administered on 09/14/19at 22:03; Start 09/14/19 at 22:00; Stop 09/15/19 at 21:59; Status DC Potassium Chloride 70 meq/ Magnesium Sulfate 20 meq/ Multivitamins 10 ml/Chromium/ Copper/Manganese/ Seleni/Zn 1 ml/ Insulin Human Regular 15 unit/ Total Parenteral Nutrition/Amino Acids/Dextrose/ Fat Emulsion Intravenous 1,800 ml @ 75 mls/hr TPN CONT IV Last administered on 09/15/19at 22:33; Start 09/15/19 at 22:00; Stop 09/16/19 at 21:59; Status DC Potassium Chloride 70 meq/ Magnesium Sulfate 20 meq/ Multivitamins 10 ml/Ch romium/ Copper/Manganese/ Seleni/Zn 1 ml/ Insulin Human Regular 15 unit/ Total Parenteral Nutrition/Amino Acids/Dextrose/ Fat Emulsion Intravenous 1,800 ml @ 75 mls/hr TPN CONT IV Last administered on 09/16/19at 23:13; Start 09/16/19 at 22:00; Stop 09/17/19 at 21:59; Status DC Potassium Chloride 80 meq/ Magnesium Sulfate 20 meq/ Multivitamins 10 ml/Chromium/ Copper/Manganese/ Seleni/Zn 1 ml/ Insulin Human Regular 15 unit/ Total Parenteral Nutrition/Amino Acids/Dextrose/ Fat Emulsion Intravenous 1,800 ml @ 75 mls/hr TPN CONT IV Last administered on 09/17/19at 22:30; Start 09/17/19 at 22:00; Stop 09/18/19 at 21:59; Status DC Potassium Chloride 80 meq/ Magnesium Sulfate 20 meq/ Multivitamins 10 ml/Chromium/ Copper/Manganese/ Seleni/Zn 1 ml/ Insulin Human Regular 15 unit/ Total Parenteral Nutrition/Amino Acids/Dextrose/ Fat Emulsion Intravenous 1,800 ml @ 75 mls/hr TPN CONT IV Last administered on 09/18/19at 21:54; Start 09/18/19 at 22:00; Stop 09/19/19 at 21:59; Status DC Potassium Chloride/Water 100 ml @ 100 mls/hr 1X ONCE IV Last administered on 09/19/19at 10:15; Start 09/19/19 at 10:00; Stop 09/19/19 at 10:59; Status DC Potassium Chloride 90 meq/ Magnesium Sulfate 20 meq/ Multivitamins 10 ml/Chromium/ Copper/Manganese/ Seleni/Zn 1 ml/ Insulin Human Regular 20 unit/ Total Parenteral Nutrition/Amino Acids/Dextrose/ Fat Emulsion Intravenous 1,800 ml @ 75 mls/hr TPN CONT IV Last administered on 09/19/19at 22:28; Start 09/19/19 at 22:00; Stop 09/20/19 at 21:59; Status DC Potassium Chloride 90 meq/ Magnesium Sulfate 20 meq/ Multivitamins 10 ml/Chromium/ Copper/Manganese/ Seleni/Zn 1 ml/ Insulin Human Regular 20 unit/ Total Parenteral Nutrition/Amino Acids/Dextrose/ Fat Emulsion Intravenous 1,800 ml @ 75 mls/hr TPN CONT IV Last administered on 09/20/19at 22:08; Start 09/20/19 at 22:00; Stop 09/21/19 at 21:59; Status DC Lorazepam (Ativan Inj) 0.25 mg PRN Q4HRS PRN IVP ANXIETY / AGITATION Last administered on 12/01/19at 15:56; Start 09/21/19 at 07:30 Potassium Chloride 90 meq/ Magnesium Sulfate 20 meq/ Multivitamins 10 ml/Chromium/ Copper/Manganese/ Seleni/Zn 1 ml/ Insulin Human Regular 20 unit/ Total Parenteral Nutrition/Amino Acids/Dextrose/ Fat Emulsion Intravenous 1,800 ml @ 75 mls/hr TPN CONT IV Last administered on 09/21/19at 23:13; Start 09/21/19 at 22:00; Stop 09/22/19 at 21:59; Status DC Furosemide (Lasix) 40 mg DAILY IVP Last administered on 09/23/19at 11:14; Start 09/21/19 at 13:30; Stop 09/25/19 at 09:12; Status DC Fluoxetine HCl (PROzac) 20 mg QHS PEG Last administered on 12/02/19at 00:32; Start 09/22/19 at 21:00 Fentanyl (Duragesic 50mcg/ Hr Patch) 1 patch Q72H TD Last administered on 09/22/19at 21:22; Start 09/22/19 at 21:00; Stop 10/01/19 at 12:00; Status DC Potassium Chloride 40 meq/ Potassium Acetate 60 meq/Magnesium Sulfate 10 meq/ Multivitamins 10 ml/Chromium/ Copper/Manganese/ Seleni/Zn 1 ml/ Insulin Human Regular 20 unit/ Total Parenteral Nutrition/Amino Acids/Dextrose/ Fat Emulsion Intravenous 1,800 ml @ 75 mls/hr TPN CONT IV Last administered on 09/23/19at 00:03; Start 09/22/19 at 22:00; Stop 09/23/19 at 21:59; Status DC Potassium Acetate 80 meq/Magnesium Sulfate 5 meq/ Multivitamins 10 ml/Chromium/ Copper/Manganese/ Seleni/Zn 1 ml/ Insulin Human Regular 20 unit/ Total Parenteral Nutrition/Amino Acids/Dextrose/ Fat Emulsion Intravenous 1,920 ml @ 80 mls/hr TPN CONT IV Last administered on 09/23/19at 21:59; Start 09/23/19 at 22:00; Stop 09/24/19 at 21:59; Status DC Potassium Acetate 60 meq/Magnesium Sulfate 5 meq/ Multivitamins 10 ml/Chromium/ Copper/Manganese/ Seleni/Zn 1 ml/ Insulin Human Regular 30 unit/ Total Parenteral Nutrition/Amino Acids/Dextrose/ Fat Emulsion Intravenous 1,920 ml @ 80 mls/hr TPN CONT IV Last administered on 09/24/19at 21:54; Start 09/24/19 at 22:00; Stop 09/25/19 at 21:59; Status DC Norepinephrine Bitartrate 8 mg/ Dextrose 258 ml @ 13.332 mls/ hr CONT PRN IV PER PROTOCOL Last administered on 10/20/19at 09:09; Start 09/25/19 at 06:30; Stop 11/21/19 at 09:45; Status DC Albumin Human 500 ml @ 125 mls/hr 1X ONCE IV Last administered on 09/25/19at 08:10; Start 09/25/19 at 08:15; Stop 09/25/19 at 12:14; Status DC Potassium Acetate 40 meq/Magnesium Sulfate 5 meq/ Multivitamins 10 ml/Chromium/ Copper/Manganese/ Seleni/Zn 1 ml/ Insulin Human Regular 30 unit/ Total Parenteral Nutrition/Amino Acids/Dextrose/ Fat Emulsion Intravenous 1,920 ml @ 80 mls/hr TPN CONT IV Last administered on 09/25/19at 22:23; Start 09/25/19 at 22:00; Stop 09/26/19 at 21:59; Status DC Meropenem 1 gm/ Sodium Chloride 100 ml @ 200 mls/hr Q8HRS IV ; Start 09/25/19 at 14:00; Status Cancel Meropenem 1 gm/ Sodium Chloride 100 ml @ 200 mls/hr Q8HRS IV Last administered on 09/25/19at 11:04; Start 09/25/19 at 10:00; Stop 09/25/19 at 13:00; Status DC Meropenem 1 gm/ Sodium Chloride 100 ml @ 200 mls/hr Q12HR IV Last administered on 10/13/19at 08:27; Start 09/25/19 at 21:00; Stop 10/13/19 at 08:56; Status DC Sodium Chloride 1,000 ml @ 1,000 mls/hr 1X ONCE IV Last administered on 09/25/19at 11:06; Start 09/25/19 at 10:45; Stop 09/25/19 at 11:44; Status DC Micafungin Sodium 100 mg/Dextrose 100 ml @ 100 mls/hr Q24H IV Last admini stered on 10/12/19at 12:34; Start 09/25/19 at 11:00; Stop 10/13/19 at 08:56; Status DC Daptomycin 410 mg/ Sodium Chloride 50 ml @ 100 mls/hr Q24H IV Last administered on 09/27/19at 13:33; Start 09/25/19 at 14:00; Stop 09/28/19 at 08:30; Status DC Midazolam HCl (Versed) 2 mg STK-MED ONCE .ROUTE ; Start 09/25/19 at 14:47; Stop 09/25/19 at 14:48; Status DC Fentanyl Citrate (Fentanyl 2ml Vial) 100 mcg STK-MED ONCE .ROUTE ; Start 09/25/19 at 14:47; Stop 09/25/19 at 14:48; Status DC Flumazenil (Romazicon) 0.5 mg STK-MED ONCE IV ; Start 09/25/19 at 14:48; Stop 09/25/19 at 14:48; Status DC Naloxone HCl (Narcan) 0.4 mg STK-MED ONCE .ROUTE ; Start 09/25/19 at 14:48; Stop 09/25/19 at 14:48; Status DC Lidocaine HCl (Lidocaine 1% 20ml Vial) 20 ml STK-MED ONCE .ROUTE ; Start 09/25/19 at 14:48; Stop 09/25/19 at 14:48; Status DC Midazolam HCl (Versed) 2 mg 1X ONCE IV Last administered on 09/25/19at 15:28; Start 09/25/19 at 15:00; Stop 09/25/19 at 15:01; Status DC Fentanyl Citrate (Fentanyl 2ml Vial) 100 mcg 1X ONCE IV Last administered on 09/25/19 15:28; Start 09/25/19 at 15:00; Stop 09/25/19 at 15:01; Status DC Lidocaine HCl (Lidocaine 1% 20ml Vial) 20 ml 1X ONCE INJ Last administered on 09/25/19at 15:30; Start 09/25/19 at 15:00; Stop 09/25/19 at 15:01; Status DC Sodium Chloride 1,000 ml @ 100 mls/hr Q10H IV Last administered on 10/04/19at 07:30; Start 09/25/19 at 20:00; Stop 10/04/19 at 11:26; Status DC Sodium Bicarbonate (Sodium Bicarb Adult 8.4% Syr) 50 meq 1X ONCE IV Last administered on 09/25/19at 21:47; Start 09/25/19 at 22:00; Stop 09/25/19 at 22:01; Status DC Potassium Acetate 40 meq/Magnesium Sulfate 5 meq/ Multivitamins 10 ml/Chromium/ Copper/Manganese/ Seleni/Zn 1 ml/ Insulin Human Regular 30 unit/ Total Parenteral Nutrition/Amino Acids/Dextrose/ Fat Emulsion Intravenous 1,920 ml @ 80 mls/hr TPN CONT IV Last administered on 09/26/19at 22:28; Start 09/26/19 at 22:00; Stop 09/27/19 at 21:59; Status DC Sodium Chloride 500 ml @ 500 mls/hr 1X ONCE IV Last administered on 09/27/19at 06:39; Start 09/27/19 at 06:45; Stop 09/27/19 at 07:44; Status DC Potassium Acetate 40 meq/Magnesium Sulfate 5 meq/ Multivitamins 10 ml/Chromium/ Copper/Manganese/ Seleni/Zn 1 ml/ Insulin Human Regular 30 unit/ Total Parenteral Nutrition/Amino Acids/Dextrose/ Fat Emulsion Intravenous 1,920 ml @ 80 mls/hr TPN CONT IV Last administered on 09/27/19at 22:03; Start 09/27/19 at 22:00; Stop 09/28/19 at 21:59; Status DC Metoprolol Tartrate (Lopressor Vial) 5 mg PRN Q6HRS PRN IVP HYPERTENSION Last administered on 11/29/19at 10:02; Start 09/28/19 at 09:00 Potassium Acetate 40 meq/Magnesium Sulfate 5 meq/ Multivitamins 10 ml/Chromium/ Copper/Manganese/ Seleni/Zn 1 ml/ Insulin Human Regular 30 unit/ Total Parenteral Nutrition/Amino Acids/Dextrose/ Fat Emulsion Intravenous 1,920 ml @ 80 mls/hr TPN CONT IV Last administered on 09/28/19at 21:26; Start 09/28/19 at 22:00; Stop 09/29/19 at 21:59; Status DC Potassium Acetate 40 meq/Magnesium Sulfate 5 meq/ Multivitamins 10 ml/Chromium/ Copper/Manganese/ Seleni/Zn 1 ml/ Insulin Human Regular 30 unit/ Total Parenteral Nutrition/Amino Acids/Dextrose/ Fat Emulsion Intravenous 1,920 ml @ 80 mls/hr TPN CONT IV Last administered on 09/29/19at 23:23; Start 09/29/19 at 22:00; Stop 09/30/19 at 21:59; Status DC Potassium Acetate 40 meq/Magnesium Sulfate 5 meq/ Multivitamins 10 ml/Chromium/ Copper/Manganese/ Seleni/Zn 1 ml/ Insulin Human Regular 30 unit/ Total Parenteral Nutrition/Amino Acids/Dextrose/ Fat Emulsion Intravenous 1,920 ml @ 80 mls/hr TPN CONT IV Last administered on 09/30/19at 21:35; Start 09/30/19 at 22:00; Stop 10/01/19 at 21:59; Status DC Furosemide (Lasix) 20 mg 1X ONCE IVP Last administered on 10/01/19at 06:26; Start 10/01/19 at 06:15; Stop 10/01/19 at 06:16; Status DC Methylprednisolone Sodium Succinate (SOLU-Medrol 125MG VIAL) 125 mg 1X ONCE IV Last administered on 10/01/19at 06:26; Start 10/01/19 at 06:15; Stop 10/01/19 at 06:16; Status DC Albuterol/ Ipratropium (Duoneb) 3 ml Q4HRS NEB Last administered on 12/02/19at 12:10; Start 10/01/19 at 08:00 Fentanyl Citrate 30 ml @ 0 mls/hr CONT PRN IV SEE PROTOCOL Last administered on 10/22/19at 08:03; Start 10/01/19 at 06:00; Stop 10/22/19 at 12:42; Status DC Propofol 100 ml @ 0 mls/hr CONT PRN IV SEE PROTOCOL Last administered on 10/08/19at 23:50; Start 10/01/19 at 06:00; Stop 11/21/19 at 09:45; Status DC Fentanyl Citrate (Fentanyl 2ml Vial) 25 mcg PRN Q1HR PRN IV SEE COMMENTS Last administered on 11/19/19at 23:56; Start 10/01/19 at 06:00; Stop 11/21/19 at 09:45; Status DC Fentanyl Citrate (Fentanyl 2ml Vial) 50 mcg PRN Q1HR PRN IV SEE COMMENTS Last administered on 11/21/19at 09:39; Start 10/01/19 at 06:00; Stop 11/21/19 at 09:45; Status DC Chlorhexidine Gluconate (Peridex) 15 ml BID MM ; Start 10/01/19 at 09:00; Stop 10/01/19 at 07:58; Status DC Potassium Acetate 40 meq/Magnesium Sulfate 5 meq/ Multivitamins 10 ml/Chromium/ Copper/Manganese/ Seleni/Zn 1 ml/ Insulin Human Regular 30 unit/ Total Parenteral Nutrition/Amino Acids/Dextrose/ Fat Emulsion Intravenous 1,920 ml @ 80 mls/hr TPN CONT IV Last administered on 10/01/19at 21:19; Start 10/01/19 at 22:00; Stop 10/02/19 at 21:59; Status DC Acetylcysteine (Mucomyst 20% Resp Treatment) 600 mg BID NEB Last administered on 10/07/19at 09:33; Start 10/01/19 at 21:00; Stop 10/07/19 at 10:39; Status DC Magnesium Sulfate 100 ml @ 25 mls/hr 1X ONCE IV Last administered on 10/01/19at 15:48; Start 10/01/19 at 15:45; Stop 10/01/19 at 19:44; Status DC Potassium Acetate 40 meq/Magnesium Sulfate 5 meq/ Multivitamins 10 ml/Chromium/ Copper/Manganese/ Seleni/Zn 1 ml/ Insulin Human Regular 30 unit/ Total Parenteral Nutrition/Amino Acids/Dextrose/ Fat Emulsion Intravenous 1,920 ml @ 80 mls/hr TPN CONT IV Last administered on 10/02/19at 21:35; Start 10/02/19 at 22:00; Stop 10/03/19 at 21:59; Status DC Potassium Chloride/Water 100 ml @ 100 mls/hr Q1H IV Last administered on at 08:31; Start 10/03/19 at 07:00; Stop 10/03/19 at 08:59; Status DC Potassium Acetate 40 meq/Magnesium Sulfate 5 meq/ Multivitamins 10 ml/Chromium/ Copper/Manganese/ Seleni/Zn 1 ml/ Insulin Human Regular 30 unit/ Total Parenteral Nutrition/Amino Acids/Dextrose/ Fat Emulsion Intravenous 1,920 ml @ 80 mls/hr TPN CONT IV Last administered on 10/03/19at 21:54; Start 10/03/19 at 22:00; Stop 10/04/19 at 19:34; Status DC Lidocaine HCl (Buffered Lidocaine 1%) 3 ml STK-MED ONCE .ROUTE ; Start 10/03/19 at 12:14; Stop 10/03/19 at 12:14; Status DC Lidocaine HCl (Buffered Lidocaine 1%) 3 ml 1X ONCE IJ Last administered on 10/03/19at 13:11; Start 10/03/19 at 13:00; Stop 10/03/19 at 13:01; Status DC Magnesium Sulfate 50 ml @ 25 mls/hr 1X ONCE IV ; Start 10/04/19 at 08:15; Stop 10/04/19 at 10:14; Status DC Potassium Acetate 40 meq/Magnesium Sulfate 10 meq/ Multivitamins 10 ml/Chromium/ Copper/Manganese/ Seleni/Zn 1 ml/ Insulin Human Regular 20 unit/ Total Parenteral Nutrition/Amino Acids/Dextrose/ Fat Emulsion Intravenous 1,920 ml @ 80 mls/hr TPN CONT IV Last administered on 10/04/19at 21:32; Start 10/04/19 at 22:00; Stop 10/05/19 at 21:59; Status DC Potassium Chloride/Water 100 ml @ 100 mls/hr Q1H IV Last administered on 10/05/19at 09:12; Start 10/05/19 at 08:00; Stop 10/05/19 at 09:59; Status DC Alteplase, Recombinant (Cathflo For Central Catheter Clearance) 4 mg 1X ONCE INT CAT ; Start 10/05/19 at 09:15; Stop 10/05/19 at 09:16; Status UNV Alteplase, Recombinant (Cathflo For Central Catheter Clearance) 4 mg 1X ONCE INT CAT ; Start 10/05/19 at 09:15; Stop 10/05/19 at 09:16; Status UNV Alteplase, Recombinant (Cathflo For Central Catheter Clearance) 4 mg 1X ONCE INT CAT ; Start 10/05/19 at 09:15; Stop 10/05/19 at 09:16; Status UNV Alteplase, Recombinant 4 mg/ Sodium Chloride 20 ml @ 20 mls/hr 1X ONCE IV Last administered on 10/05/19at 10:10; Start 10/05/19 at 10:00; Stop 10/05/19 at 10:59; Status DC Alteplase, Recombinant 4 mg/ Sodium Chloride 20 ml @ 20 mls/hr 1X ONCE IV Last administered on 10/05/19at 10:09; Start 10/05/19 at 10:00; Stop 10/05/19 at 10:59; Status DC Alteplase, Recombinant 4 mg/ Sodium Chloride 20 ml @ 20 mls/hr 1X ONCE IV Last administered on 10/05/19at 10:09; Start 10/05/19 at 10:00; Stop 10/05/19 at 10:59; Status DC Potassium Acetate 60 meq/Magnesium Sulfate 10 meq/ Multivitamins 10 ml/Chromium/ Copper/Manganese/ Seleni/Zn 1 ml/ Insulin Human Regular 20 unit/ Total Parenteral Nutrition/Amino Acids/Dextrose/ Fat Emulsion Intravenous 1,920 ml @ 80 mls/hr TPN CONT IV Last administered on 10/05/19at 21:55; Start 10/05/19 at 22:00; Stop 10/06/19 at 21:59; Status DC Albumin Human 500 ml @ 125 mls/hr 1X ONCE IV Last administered on 10/06/19at 12:01; Start 10/06/19 at 11:15; Stop 10/06/19 at 15:14; Status DC Sodium Chloride 500 ml @ 500 mls/hr 1X ONCE IV Last administered on 10/06/19at 13:50; Start 10/06/19 at 11:15; Stop 10/06/19 at 12:14; Status DC Potassium Acetate 60 meq/Magnesium Sulfate 14 meq/ Multivitamins 10 ml/Chromium/ Copper/Manganese/ Seleni/Zn 1 ml/ Insulin Human Regular 20 unit/ Total Parenteral Nutrition/Amino Acids/Dextrose/ Fat Emulsion Intravenous 1,920 ml @ 80 mls/hr TPN CONT IV Last administered on 10/06/19at 22:26; Start 10/06/19 at 22:00; Stop 10/07/19 at 21:59; Status DC Ciprofloxacin/ Dextrose 200 ml @ 200 mls/hr Q12HR IV Last administered on 10/13/19at 08:27; Start 10/06/19 at 21:00; Stop 10/13/19 at 08:56; Status DC Albumin Human 250 ml @ 62.5 mls/hr 1X ONCE IV Last administered on 10/07/19at 11:09; Start 10/07/19 at 11:00; Stop 10/07/19 at 14:59; Status DC Furosemide (Lasix) 20 mg 1X ONCE IVP Last administered on 10/07/19at 14:52; Start 10/07/19 at 10:45; Stop 10/07/19 at 10:49; Status DC Potassium Acetate 60 meq/Magnesium Sulfate 14 meq/ Multivitamins 10 ml/Chromium/ Copper/Manganese/ Seleni/Zn 1 ml/ Insulin Human Regular 15 unit/ Total Parenteral Nutrition/Amino Acids/Dextrose/ Fat Emulsion Intravenous 1,920 ml @ 80 mls/hr TPN CONT IV Last administered on 10/07/19at 22:08; Start 10/07/19 at 22:00; Stop 10/08/19 at 21:59; Status DC Potassium Acetate 60 meq/Magnesium Sulfate 14 meq/ Multivitamins 10 ml/Chromium/ Copper/Manganese/ Seleni/Zn 1 ml/ Insulin Human Regular 15 unit/ Total Parenteral Nutrition/Amino Acids/Dextrose/ Fat Emulsion Intravenous 1,920 ml @ 80 mls/hr TPN CONT IV Last administered on 10/08/19at 22:12; Start 10/08/19 at 22:00; Stop 10/09/19 at 21:59; Status DC Potassium Acetate 60 meq/Magnesium Sulfate 14 meq/ Multivitamins 10 ml/Chromium/ Copper/Manganese/ Seleni/Zn 1 ml/ Insulin Human Regular 15 unit/ Total Parenteral Nutrition/Amino Acids/Dextrose/ Fat Emulsion Intravenous 1,920 ml @ 80 mls/hr TPN CONT IV Last administered on 10/09/19at 22:22; Start 10/09/19 at 22:00; Stop 10/10/19 at 21:59; Status DC Furosemide (Lasix) 20 mg 1X ONCE IVP Last administered on 10/10/19at 11:07; Start 10/10/19 at 10:30; Stop 10/10/19 at 10:34; Status DC Potassium Acetate 60 meq/Magnesium Sulfate 14 meq/ Multivitamins 10 ml/Chromium/ Copper/Manganese/ Seleni/Zn 1 ml/ Insulin Human Regular 15 unit/ Sodium Chloride 20 meq/Total Parenteral Nutrition/Amino Acids/Dextrose/ Fat Emulsion Intravenous 1,920 ml @ 80 mls/hr TPN CONT IV Last administered on 10/10/19at 21:54; Start 10/10/19 at 22:00; Stop 10/11/19 at 21:59; Status DC Potassium Acetate 30 meq/Magnesium Sulfate 14 meq/ Multivitamins 10 ml/Chromium/ Copper/Manganese/ Seleni/Zn 1 ml/ Insulin Human Regular 15 unit/ Sodium Chloride 20 meq/Potassium Chloride 30 meq/ Total Parenteral Nutrition/Amino Acids/Dextrose/ Fat Emulsion Intravenous 1,920 ml @ 80 mls/hr TPN CONT IV Last administered on 10/11/19at 21:46; Start 10/11/19 at 22:00; Stop 10/12/19 at 21:59; Status DC Sodium Chloride 80 meq/Potassium Chloride 30 meq/ Potassium Acetate 30 meq/Magnesium Sulfate 14 meq/ Multivitamins 10 ml/Chromium/ Copper/Manganese/ Seleni/Zn 1 ml/ Insulin Human Regular 15 unit/ Total Parenteral Nutrition/Amino Acids/Dextrose/ Fat Emulsion Intravenous 1,920 ml @ 80 mls/hr TPN CONT IV [facility] administered on 10/12/19at 22:33; Start 10/12/19 at 22:00; Stop 10/13/19 at 21:59; Status DC Furosemide (Lasix) 40 mg 1X ONCE IVP Last administered on 10/12/19at 16:27; Start 10/12/19 at 15:30; Stop 10/12/19 at 15:33; Status DC Albumin Human 250 ml @ 62.5 mls/hr 1X ONCE IV Last administered on 10/12/19at 16:27; Start 10/12/19 at 15:30; Stop 10/12/19 at 19:29; Status DC Sodium Chloride 80 meq/Potassium Chloride 30 meq/ Potassium Acetate 30 meq/Magnesium Sulfate 14 meq/ Multivitamins 10 ml/Chromium/ Copper/Manganese/ Seleni/Zn 1 ml/ Insulin Human Regular 15 unit/ Total Parenteral Nutrition/Amino Acids/Dextrose/ Fat Emulsion Intravenous 1,920 ml @ 80 mls/hr TPN CONT IV Last administered on 10/13/19at 22:25; Start 10/13/19 at 22:00; Stop 10/14/19 at 21:59; Status DC Sodium Chloride 80 meq/Potassium Chloride 30 meq/ Potassium Acetate 30 meq/Magnesium Sulfate 14 meq/ Multivitamins 10 ml/Chromium/ Copper/Manganese/ Seleni/Zn 1 ml/ Insulin Human Regular 15 unit/ Total Parenteral Nutrition/Amino Acids/Dextrose/ Fat Emulsion Intravenous 1,920 ml @ 80 mls/hr TPN CONT IV Last administered on 10/14/19at 21:32; Start 10/14/19 at 22:00; Stop 10/15/19 at 21:59; Status DC Sodium Chloride 80 meq/Potassium Chloride 30 meq/ Potassium Acetate 30 meq/Magnesium Sulfate 14 meq/ Multivitamins 10 ml/Chromium/ Copper/Manganese/ Seleni/Zn 1 ml/ Insulin Human Regular 15 unit/ Total Parenteral Nutrition/Amino Acids/Dextrose/ Fat Emulsion Intravenous 1,920 ml @ 80 mls/hr TPN CONT IV Last administered on 10/15/19at 21:53; Start 10/15/19 at 22:00; Stop 10/16/19 at 21:59; Status DC Acetylcysteine (Mucomyst 20% Resp Treatment) 600 mg RTBID NEB Last administered on 12/02/19at 08:00; Start 10/15/19 at 12:00 Sodium Chloride 80 meq/Potassium Chloride 30 meq/ Potassium Acetate 30 meq/ Magnesium Sulfate 14 meq/ Multivitamins 10 ml/Chromium/ Copper/Manganese/ Seleni/Zn 1 ml/ Insulin Human Regular 15 unit/ Total Parenteral Nutrition/Amino Acids/Dextrose/ Fat Emulsion Intravenous 1,920 ml @ 80 mls/hr TPN CONT IV Last administered on 10/16/19at 22:06; Start 10/16/19 at 22:00; Stop 10/17/19 at 21:59; Status DC Meropenem 500 mg/ Sodium Chloride 50 ml @ 100 mls/hr Q6HRS IV Last administered on 11/08/19at 06:15; Start 10/16/19 at 18:00; Stop 11/08/19 at 08:23; Status DC Daptomycin 500 mg/ Sodium Chloride 50 ml @ 100 mls/hr Q24H IV Last administered on 10/24/19at 21:47; Start 10/16/19 at 19:00; Stop 10/25/19 at 08:13; Status DC Sodium Chloride 80 meq/Potassium Chloride 30 meq/ Potassium Acetate 30 meq/Magnesium Sulfate 14 meq/ Multivitamins 10 ml/Chromium/ Copper/Manganese/ Seleni/Zn 1 ml/ Insulin Human Regular 15 unit/ Total Parenteral Nutrition/Amino Acids/Dextrose/ Fat Emulsion Intravenous 1,920 ml @ 80 mls/hr TPN CONT IV Last administered on 10/17/19at 22:09; Start 10/17/19 at 22:00; Stop 10/18/19 at 21:59; Status DC Heparin Sodium (Porcine) 1000 unit/Sodium Chloride 1,001 ml @ 1,001 mls/hr 1X ONCE IRR ; Start 10/18/19 at 06:00; Stop 10/18/19 at 06:59; Status DC Propofol (Diprivan) 200 mg STK-MED ONCE IV ; Start 10/18/19 at 07:44; Stop 10/18/19 at 07:44; Status DC Lidocaine HCl (Lidocaine Pf 2% Vial) 5 ml STK-MED ONCE .ROUTE ; Start 10/18/19 at 07:44; Stop 10/18/19 at 07:44; Status DC Fentanyl Citrate (Fentanyl 2ml Vial) 100 mcg STK-MED ONCE .ROUTE ; Start 10/18/19 at 07:44; Stop 10/18/19 at 07:44; Status DC Rocuronium [place] (Zemuron) 100 mg STK-MED ONCE .ROUTE ; Start 10/18/19 at 07:44; Stop 10/18/19 at 07:44; Status DC Micafungin Sodium 100 mg/Dextrose 100 ml @ 100 mls/hr Q24H IV Last administered on 11/22/19at 09:30; Start 10/18/19 at 08:30; Stop 11/23/19 at 08:20; Status DC Bupivacaine HCl/ Epinephrine Bitart (Sensorcain-Epi 0.5%-1:[id number] Mpf) 30 ml STK -MED ONCE .ROUTE ; Start 10/18/19 at 08:34; Stop 10/18/19 at 08:35; Status DC Iohexol (Omnipaque 300 Mg/ml) 50 ml STK-MED ONCE .ROUTE Last administered on 10/18/19at 13:30; Start 10/18/19 at 08:35; Stop 10/18/19 at 08:35; Status DC Sodium Chloride 80 meq/Potassium Chloride 30 meq/ Potassium Acetate 30 meq/Magnesium Sulfate 14 meq/ Multivitamins 10 ml/Chromium/ Copper/Manganese/ S thien/Zn 1 ml/ Insulin Human Regular 15 unit/ Total Parenteral Nutrition/Amino Acids/Dextrose/ Fat Emulsion Intravenous 1,920 ml @ 80 mls/hr TPN CONT IV Last administered on 10/19/19at 01:22; Start 10/18/19 at 22:00; Stop 10/19/19 at 21:59; Status DC Phenylephrine HCl (Brayden-Synephrine Inj) 10 mg STK-MED ONCE .ROUTE ; Start 10/18/19 at 10:15; Stop 10/18/19 at 10:15; Status DC Desflurane (Suprane) 90 ml STK-MED ONCE IH ; Start 10/18/19 at 10:18; Stop 10/18/19 at 10:19; Status DC Albumin Human 500 ml @ As Directed STK-MED ONCE IV ; Start 10/18/19 at 11:06; Stop 10/18/19 at 11:06; Status DC Vasopressin (Vasostrict) 20 unit STK-MED ONCE .ROUTE ; Start 10/18/19 at 12:23; Stop 10/18/19 at 12:23; Status DC Phenylephrine HCl (Brayden-Synephrine Inj) 10 mg STK-MED ONCE .ROUTE ; Start 10/18/19 at 13:33; Stop 10/18/19 at 13:33; Status DC Phenylephrine HCl (Brayden-Synephrine Inj) 10 mg STK-MED ONCE .ROUTE ; Start 10/18/19 at 13:33; Stop 10/18/19 at 13:33; Status DC Ondansetron HCl (Zofran) 4 mg STK-MED ONCE .ROUTE ; Start 10/18/19 at 13:33; Stop 10/18/19 at 13:33; Status DC Enoxaparin Sodium (Lovenox 40mg Syringe) 40 mg Q24H SQ Last administered on 11/30/19at 08:28; Start 10/19/19 at 08:00 Sodium Chloride (Normal Saline Flush) 3 ml QSHIFT PRN IV AFTER MEDS AND BLOOD DRAWS; Start 10/18/19 at 14:45; Stop 11/21/19 at 09:45; Status DC Naloxone HCl (Narcan) 0.4 mg PRN Q2MIN PRN IV SEE INSTRUCTIONS; Start 10/18/19 at 14:45; Stop 11/21/19 at 09:45; Status DC Sodium Chloride 1,000 ml @ 25 mls/hr Q24H IV Last administered on 11/20/19at 20:55; Start 10/18/19 at 14:33; Stop 11/21/19 at 09:45; Status DC Morphine Sulfate (Morphine Sulfate) 1 mg PRN Q1HR PRN IV PAIN Last administered on 11/12/19at 18:28; Start 10/18/19 at 14:45; Stop 11/21/19 at 09:45; Status DC Midazolam HCl 100 mg/Sodium Chloride 100 ml @ 1 mls/hr CONT PRN IV SEE I/O RECORD Last administered on 10/21/19at 18:48; Start 10/18/19 at 14:45; Stop at 09:45; Status DC Phenylephrine HCl (PHENYLEPHRINE in 0.9% NACL PF) 1 mg STK-MED ONCE IV ; Start 10/18/19 at 14:44; Stop 10/18/19 at 14:45; Status DC Ephedrine Sulfate (ePHEDrine PF IN SALINE SYRINGE) 50 mg STK-MED ONCE IV ; Start 10/18/19 at 14:45; Stop 10/18/19 at 14:45; Status DC Vasopressin 20 unit/Dextrose 101 ml @ 12 mls/hr CONT PRN IV SEE I/O RECORD Last administered on 10/25/19at 04:17; Start 10/18/19 at 15:30; Stop 11/21/19 at 09:45; Status DC Sodium Chloride 1,000 ml @ 1,000 mls/hr 1X ONCE IV Last administered on 10/18/19at 15:42; Start 10/18/19 at 15:45; Stop 10/18/19 at 16:44; Status DC Albumin Human 500 ml @ 125 mls/hr 1X ONCE IV ; Start 10/18/19 at 16:00; Stop 10/18/19 at 19:59; Status DC Albumin Human 500 ml @ 125 mls/hr PRN Q1HR PRN IV PER PROTOCOL; Start 10/18/19 at 15:45; Stop 11/21/19 at 09:52; Status DC Magnesium Sulfate 50 ml @ 25 mls/hr 1X ONCE IV Last administered on 10/18/19at 17:02; Start 10/18/19 at 16:30; Stop 10/18/19 at 18:29; Status DC Sodium Bicarbonate (Sodium Bicarb Adult 8.4% Syr) 50 meq STK-MED ONCE .ROUTE ; Start 10/18/19 at 16:20; Stop 10/18/19 at 16:20; Status DC Sodium Bicarbonate (Sodium Bicarb Adult 8.4% Syr) 100 meq 1X ONCE IV Last administered on 10/18/19at 17:07; Start 10/18/19 at 16:30; Stop 10/18/19 at 16:31; Status DC Sodium Bicarbonate 150 meq/Dextrose 1,150 ml @ 75 mls/hr 1X ONCE IV Last administered on 10/18/19at 20:02; Start 10/18/19 at 16:30; Stop 10/19/19 at 07:49; Status DC Sodium Chloride 80 meq/Potassium Chloride 30 meq/ Potassium Acetate 30 meq/Magnesium Sulfate 14 meq/ Multivitamins 10 ml/Chromium/ Copper/Manganese/ Seleni/Zn 1 ml/ Insulin Human Regular 15 unit/ Total Parenteral Nutrition/Amino Acids/Dextrose/ Fat Emulsion Intravenous 1,920 ml @ 80 mls/hr TPN CONT IV Last administered on 10/19/19at 23:05; Start 10/19/19 at 22:00; Stop 10/20/19 at 21:59; Status DC Sodium Chloride 100 meq/Potassium Chloride 30 meq/ Potassium Acetate 30 meq/Magnesium Sulfate 12 meq/ Multivitamins 10 ml/Chromium/ Copper/Manganese/ Seleni/Zn 1 ml/ Insulin Human Regular 15 unit/ Total Parenteral Nutrition/Amino Acids/Dextrose/ Fat Emulsion Intravenous 1,920 ml @ 80 mls/hr TPN CONT IV Last administered on 10/20/19at 21:52; Start 10/20/19 at 22:00; Stop 10/21/19 at 21:59; Status DC Sodium Chloride 100 meq/Potassium Chloride 30 meq/ Potassium Acetate 30 meq/Magnesium Sulfate 12 meq/ Multivitamins 10 ml/Chromium/ Copper/Manganese/ Se dinorah/Zn 1 ml/ Insulin Human Regular 15 unit/ Total Parenteral Nutrition/Amino Acids/Dextrose/ Fat Emulsion Intravenous 1,920 ml @ 80 mls/hr TPN CONT IV Last administered on 10/21/19at 21:46; Start 10/21/19 at 22:00; Stop 10/22/19 at 21:59; Status DC Sodium Chloride 100 meq/Potassium Chloride 30 meq/ Potassium Acetate 30 meq/Magnesium Sulfate 12 meq/ Multivitamins 10 ml/Chromium/ Copper/Manganese/ Seleni/Zn 1 ml/ Insulin Human Regular 15 unit/ Total Parenteral Nutrition/Amino Acids/Dextrose/ Fat Emulsion Intravenous 1,800 ml @ 75 mls/hr TPN CONT IV Last administered on 10/22/19at 22:04; Start 10/22/19 at 22:00; Stop 10/23/19 at 21:59; Status DC Fentanyl Citrate 55 ml @ 0 mls/hr CONT PRN IV SEE COMMENTS Last administered on 10/24/19at 23:55; Start 10/22/19 at 13:00; Stop 10/27/19 at 17:28; Status DC Sodium Chloride 100 meq/Potassium Chloride 30 meq/ Potassium Acetate 30 meq/Magnesium Sulfate 12 meq/ Multivitamins 10 ml/Chromium/ Copper/Manganese/ Seleni/Zn 1 ml/ Insulin Human Regular 15 unit/ Total Parenteral Nutrition/Amino Acids/Dextrose/ Fat Emulsion Intravenous 1,680 ml @ 70 mls/hr TPN CONT IV Last administered on 10/23/19at 21:23; Start 10/23/19 at 22:00; Stop 10/24/19 at 21:59; Status DC Sodium Chloride 110 meq/Potassium Chloride 30 meq/ Potassium Acetate 30 meq/Magnesium Sulfate 15 meq/ Multivitamins 10 ml/Chromium/ Copper/Manganese/ Seleni/Zn 1 ml/ Insulin Human Regular 15 unit/ Total Parenteral Nutrition/Amino Acids/Dextrose/ Fat Emulsion Intravenous 1,680 ml @ 70 mls/hr TPN CONT IV Last administered on 10/24/19at 21:48; Start 10/24/19 at 22:00; Stop 10/25/19 at 21:59; Status DC Sodium Chloride 110 meq/Potassium Chloride 30 meq/ Potassium Acetate 30 meq/Magnesium Sulfate 15 meq/ Multivitamins 10 ml/Chromium/ Copper/Manganese/ Seleni/Zn 1 ml/ Insulin Human Regular 15 unit/ Total Parenteral Nutrition/Amino Acids/Dextrose/ Fat Emulsion Intravenous 1,680 ml @ 70 mls/hr TPN CONT IV [facility] administered on 10/25/19at 21:33; Start 10/25/19 at 22:00; Stop 10/26/19 at 21:59; Status DC Sodium Chloride 110 meq/Potassium Chloride 30 meq/ Potassium Acetate 30 meq/Magnesium Sulfate 15 meq/ Multivitamins 10 ml/Chromium/ Copper/Manganese/ Seleni/Zn 1 ml/ Insulin Human Regular 15 unit/ Total Parenteral Nutrition/Amino Acids/Dextrose/ Fat Emulsion Intravenous 1,680 ml @ 70 mls/hr TPN CONT IV Last administered on 10/26/19at 21:51; Start 10/26/19 at 22:00; Stop 10/27/19 at 21:59; Status DC Sodium Chloride 90 meq/Potassium Chloride 30 meq/ Potassium Acetate 30 meq/Magnesium Sulfate 15 meq/ Multivitamins 10 ml/Chromium/ Copper/Manganese/ Seleni/Zn 1 ml/ Insulin Human Regular 15 unit/ Total Parenteral Nutrition/Amino Acids/Dextrose/ Fat Emulsion Intravenous 1,680 ml @ 70 mls/hr TPN CONT IV Last administered on 10/27/19at 22:38; Start 10/27/19 at 22:00; Stop 10/28/19 at 21:59; Status DC Fentanyl Citrate 30 ml @ 0 mls/hr CONT PRN IV SEE I/O RECORD; Start 10/27/19 at 17:30; Stop 11/21/19 at 09:45; Status DC Fentanyl (Duragesic 12mcg/ Hr Patch) 1 patch Q3DAYS TD Last administered on 11/30/19at 08:28; Start 10/28/19 at 09:00 Sodium Chloride 90 meq/Potassium Chloride 30 meq/ Potassium Acetate 30 meq/Magnesium Sulfate 15 meq/ Multivitamins 10 ml/Chromium/ Copper/Manganese/ Seleni/Zn 1 ml/ Insulin Human Regular 15 unit/ Total Parenteral Nutrition/Amino Acids/Dextrose/ Fat Emulsion Intravenous 1,680 ml @ 70 mls/hr TPN CONT IV Last administered on 10/28/19at 21:59; Start 10/28/19 at 22:00; Stop 10/29/19 at 21:59; Status DC Sodium Chloride 90 meq/Potassium Chloride 30 meq/ Potassium Acetate 30 meq/Magnesium Sulfate 15 meq/ Multivitamins 10 ml/Chromium/ Copper/Manganese/ Seleni/Zn 1 ml/ Insulin Human Regular 15 unit/ Total Parenteral Nutrition/Amino Acids/Dextrose/ Fat Emulsion Intravenous 1,680 ml @ 70 mls/hr TPN CONT IV Last administered on 10/29/19at 21:35; Start 10/29/19 at 22:00; Stop 10/30/19 at 21:59; Status DC Vancomycin HCl (Vanco Per Pharmacy) 1 each PRN DAILY PRN MC SEE COMMENTS Last administered on 11/01/19at 02:46; Start 10/30/19 at 09:15; Stop 11/02/19 at 07:41; Status DC Ciprofloxacin/ Dextrose 200 ml @ 200 mls/hr Q12HR IV Last administered on 11/07/19at 21:02; Start 10/30/19 at 10:00; Stop 11/08/19 at 08:20; Status DC Vancomycin HCl 2 gm/Sodium Chloride 500 ml @ 250 mls/hr 1X ONCE IV Last administered on 10/30/19at 10:34; Start 10/30/19 at 10:00; Stop 10/30/19 at 11:59; Status DC Sodium Chloride 90 meq/Potassium Chloride 30 meq/ Potassium Acetate 30 meq/Magnesium Sulfate 15 meq/ Multivitamins 10 ml/Chromium/ Copper/Manganese/ Seleni/Zn 1 ml/ Insulin Human Regular 15 unit/ Total Parenteral Nutrition/Amino Acids/Dextrose/ Fat Emulsion Intravenous 1,680 ml @ 70 mls/hr TPN CONT IV Last administered on 10/30/19at 22:02; Start 10/30/19 at 22:00; Stop 10/31/19 at 21:59; Status DC Diphenhydramine HCl (Benadryl) 25 mg 1X ONCE IVP Last administered on 10/30/19at 14:26; Start 10/30/19 at 14:30; Stop 10/30/19 at 14:31; Status DC Vancomycin HCl 1.5 gm/Sodium Chloride 500 ml @ 250 mls/hr Q8H IV Last administered on 10/31/19at 03:08; Start 10/30/19 at 18:30; Stop 10/31/19 at 12:24; Status DC Vancomycin HCl (Vancomycin Trough Level) 1 each 1X ONCE MC Last administered on 10/31/19at 10:00; Start 10/31/19 at 10:00; Stop 10/31/19 at 10:01; Status DC Sodium Chloride 90 meq/Potassium Chloride 30 meq/ Potassium Acetate 30 meq/Magnesium Sulfate 15 meq/ Multivitamins 10 ml/Chromium/ Copper/Manganese/ Seleni/Zn 1 ml/ Insulin Human Regular 15 unit/ Total Parenteral Nutrition/Amino Acids/Dextrose/ Fat Emulsion Intravenous 1,680 ml @ 70 mls/hr TPN CONT IV Last administered on 10/31/19at 22:13; Start 10/31/19 at 22:00; Stop 11/01/19 at 21:59; Status DC Vancomycin HCl (Vancomycin Random Level) 1 each 1X ONCE MC Last administered on 11/01/19at 01:00; Start 11/01/19 at 01:00; Stop 11/01/19 at 01:01; Status DC Vancomycin HCl 1.5 gm/Sodium Chloride 500 ml @ 250 mls/hr Q12H IV Last administered on 11/01/19at 22:07; Start 11/01/19 at 10:00; Stop 11/02/19 at 07:41; Status DC Vancomycin HCl (Vancomycin Trough Level) 1 each 1X ONCE MC ; Start 11/02/19 at 09:30; Stop 11/02/19 at 09:31; Status Cancel Sodium Chloride 90 meq/Potassium Chloride 30 meq/ Potassium Acetate 30 meq/Magnesium Sulfate 15 meq/ Multivitamins 10 ml/Chromium/ Copper/Manganese/ Seleni/Zn 1 ml/ Insulin Human Regular 15 unit/ Total Parenteral Nutrition/Amino Acids/Dextrose/ Fat Emulsion Intravenous 1,680 ml @ 70 mls/hr TPN CONT IV Last administered on 11/01/19at 22:08; Start 11/01/19 at 22:00; Stop 11/02/19 at 21:59; Status DC Alteplase, Recombinant (Cathflo For Central Catheter Clearance) 1 mg 1X ONCE INT CAT Last administered on 11/01/19at 11:49; Start 11/01/19 at 11:00; Stop 11/01/19 at 11:01; Status DC Daptomycin 500 mg/ Sodium Chloride 50 ml @ 100 mls/hr Q24H IV Last administered on 11/11/19at 08:25; Start 11/02/19 at 09:00; Stop 11/11/19 at 08:38; Status DC Sodium Chloride 90 meq/Potassium Chloride 30 meq/ Potassium Acetate 30 m eq/Magnesium Sulfate 15 meq/ Multivitamins 10 ml/Chromium/ Copper/Manganese/ Seleni/Zn 1 ml/ Insulin Human Regular 15 unit/ Total Parenteral Nutrition/Amino Acids/Dextrose/ Fat Emulsion Intravenous 1,680 ml @ 70 mls/hr TPN CONT IV Last administered on 11/02/19at 22:55; Start 11/02/19 at 22:00; Stop 11/03/19 at 21:59; Status DC Sodium Chloride 90 meq/Potassium Chloride 30 meq/ Potassium Acetate 30 meq/Magnesium Sulfate 15 meq/ Multivitamins 10 ml/Chromium/ Copper/Manganese/ Seleni/Zn 1 ml/ Insulin Human Regular 15 unit/ Total Parenteral Nutrition/Amino Acids/Dextrose/ Fat Emulsion Intravenous 1,680 ml @ 70 mls/hr TPN CONT IV [facility] administered on 11/03/19at 22:06; Start 11/03/19 at 22:00; Stop 11/04/19 at 21:59; Status DC Diphenhydramine HCl (Benadryl) 50 mg STK-MED ONCE .ROUTE ; Start 11/03/19 at 18:34; Stop 11/03/19 at 18:35; Status DC Diphenhydramine HCl (Benadryl) 25 mg 1X ONCE IM ; Start 11/03/19 at 18:45; Stop 11/03/19 at 18:46; Status DC Diphenhydramine HCl (Benadryl) 25 mg 1X ONCE IVP Last administered on 11/03/19at 18:56; Start 11/03/19 at 19:00; Stop 11/03/19 at 19:01; Status DC Alprazolam (Xanax) 0.5 mg PRN TID PRN PO ANXIETY / AGITATION Last administered on 11/10/19at 11:49; Start 11/04/19 at 08:00; Stop 11/10/19 at 15:54; Status DC Sodium Chloride 110 meq/Potassium Chloride 30 meq/ Potassium Acetate 30 meq/Magnesium Sulfate 15 meq/ Multivitamins 10 ml/Chromium/ Copper/Manganese/ Seleni/Zn 1 ml/ Insulin Human Regular 15 unit/ Total Parenteral Nutrition/Amino Acids/Dextrose/ Fat Emulsion Intravenous 1,680 ml @ 70 mls/hr TPN CONT IV Last administered on 11/04/19at 21:21; Start 11/04/19 at 22:00; Stop 11/05/19 at 21:59; Status DC Sodium Chloride 110 meq/Potassium Chloride 30 meq/ Potassium Acetate 30 meq/Magnesium Sulfate 15 meq/ Multivitamins 10 ml/Chromium/ Copper/Manganese/ Seleni/Zn 1 ml/ Insulin Human Regular 15 unit/ Total Parenteral Nutrition/Amino Acids/Dextrose/ Fat Emulsion Intravenous 1,680 ml @ 70 mls/hr TPN CONT IV Last administered on 11/05/19at 22:01; Start 11/05/19 at 22:00; Stop 11/06/19 at 21:59; Status DC Alteplase, Recombinant (Cathflo For Central Catheter Clearance) 1 mg 1X ONCE INT CAT Last administered on 11/06/19at 08:23; Start 11/06/19 at 08:15; Stop 11/06/19 at 08:16; Status DC Sodium Chloride 110 meq/Sodium Phosphate 10 mmol/ Potassium Chloride 30 meq/ Potassium Acetate 30 meq/Magnesium Sulfate 15 meq/ Multivitamins 10 ml/Chromium/ Copper/Manganese/ Seleni/Zn 1 ml/ Insulin Human Regular 15 unit/ Total Parenteral Nutrition/Amino Acids/Dextrose/ Fat Emulsion Intravenous 1,680 ml @ 70 mls/hr TPN CONT IV Last administered on 11/06/19at 22:03; Start 11/06/19 at 22:00; Stop 11/07/19 at 21:59; Status DC Sodium Chloride 120 meq/Sodium Phosphate 10 mmol/ Potassium Chloride 30 meq/ Potassium Acetate 30 meq/Magnesium Sulfate 15 meq/ Multivitamins 10 ml/Chromium/ Copper/Manganese/ Seleni/Zn 1 ml/ Insulin Human Regular 15 unit/ Total Parenteral Nutrition/Amino Acids/Dextrose/ Fat Emulsion Intravenous 1,680 ml @ 70 mls/hr TPN CONT IV Last administered on 11/07/19at 22:08; Start 11/07/19 at 22:00; Stop 11/08/19 at 21:59; Status DC Ceftazidime/ Avibactam 2.5 gm/ Sodium Chloride 100 ml @ 50 mls/hr Q8HRS IV Last administered on 11/09/19at 05:32; Start 11/08/19 at 14:00; Stop 11/09/19 at 07:48; Status DC Alteplase, Recombinant (Cathflo For Central Catheter Clearance) 1 mg 1X ONCE INT CAT Last administered on 11/08/19at 09:30; Start 11/08/19 at 09:30; Stop 11/08/19 at 09:31; Status DC Sodium Chloride 120 meq/Sodium Phosphate 10 mmol/ Potassium Chloride 30 meq/ Potassium Acetate 30 meq/Magnesium Sulfate 15 meq/ Multivitamins 10 ml/Chromium/ Copper/Manganese/ Seleni/Zn 1 ml/ Insulin Human Regular 15 unit/ Total Parenteral Nutrition/Amino Acids/Dextrose/ Fat Emulsion Intravenous 1,680 ml @ 70 mls/hr TPN CONT IV Last administered on 11/08/19at 22:11; Start 11/08/19 at 22:00; Stop 11/09/19 at 21:59; Status DC Iohexol (Omnipaque 300 Mg/ml) 75 ml 1X ONCE IV Last administered on 11/08/19at 11:30; Start 11/08/19 at 11:30; Stop 11/08/19 at 11:31; Status DC Info (CONTRAST GIVEN -- Rx MONITORING) 1 each PRN DAILY PRN MC SEE COMMENTS; Start 11/08/19 at 11:45; Stop 11/10/19 at 11:44; Status DC Alteplase, Recombinant (Cathflo For Central Catheter Clearance) 1 mg 1X ONCE INT CAT Last administered on 11/08/19at 12:17; Start 11/08/19 at 12:00; Stop 11/08/19 at 12:01; Status DC Cefepime HCl (Maxipime) 2 gm Q12HR IVP Last administered on 11/09/19at 20:53; Start 11/09/19 at 09:00; Stop 11/10/19 at 07:30; Status DC Sodium Chloride 120 meq/Sodium Phosphate 10 mmol/ Potassium Chloride 30 meq/ Potassium Acetate 30 meq/Magnesium Sulfate 15 meq/ Multivitamins 10 ml/Chromium/ Copper/Manganese/ Seleni/Zn 1 ml/ Insulin Human Regular 15 unit/ Total Parenteral Nutrition/Amino Acids/Dextrose/ Fat Emulsion Intravenous 1,680 ml @ 70 mls/hr TPN CONT IV Last administered on 11/09/19at 21:25; Start 11/09/19 at 22:00; Stop 11/10/19 at 21:59; Status DC Ceftazidime/ Avibactam 2.5 gm/ Sodium Chloride 250 ml @ 125 mls/hr Q8HRS IV Last administered on 11/23/19at 05:38; Start 11/10/19 at 08:00; Stop 11/23/19 at 08 :20; Status DC Sodium Chloride 120 meq/Sodium Phosphate 10 mmol/ Potassium Chloride 30 meq/ Potassium Acetate 30 meq/Magnesium Sulfate 15 meq/ Multivitamins 10 ml/Chromium/ Copper/Manganese/ Seleni/Zn 1 ml/ Insulin Human Regular 15 unit/ Total Parenteral Nutrition/Amino Acids/Dextrose/ Fat Emulsion Intravenous 1,680 ml @ 70 mls/hr TPN CONT IV Last administered on 11/10/19at 22:35; Start 11/10/19 at 22:00; Stop 11/11/19 at 21:59; Status DC Alprazolam (Xanax) 0.5 mg PRN QID PRN PO ANXIETY / AGITATION Last administered on 12/02/19at 08:41; Start 11/10/19 at 16:00 Acetaminophen/ Hydrocodone Bitart (Lortab 5/325) 1 tab PRN Q4HRS PRN PO PAIN Last administered on 12/01/19at 12:25; Start 11/10/19 at 16:00 Sodium Chloride 120 meq/Sodium Phosphate 10 mmol/ Potassium Chloride 30 meq/ Potassium Acetate 30 meq/Magnesium Sulfate 15 meq/ Multivitamins 10 ml/Chromium/ Copper/Manganese/ Seleni/Zn 1 ml/ Insulin Human Regular 15 unit/ Total Parenteral Nutrition/Amino Acids/Dextrose/ Fat Emulsion Intravenous 1,680 ml @ 70 mls/hr TPN CONT IV Last administered on 11/11/19at 21:50; Start 11/11/19 at 22:00; Stop 11/12/19 at 21:59; Status DC Sodium Chloride 120 meq/Sodium Phosphate 10 mmol/ Potassium Chloride 30 meq/ Potassium Acetate 30 meq/Magnesium Sulfate 15 meq/ Multivitamins 10 ml/Chromium/ Copper/Manganese/ Seleni/Zn 1 ml/ Insulin Human Regular 15 unit/ Total Parenteral Nutrition/Amino Acids/Dextrose/ Fat Emulsion Intravenous 1,680 ml @ 70 mls/hr TPN CONT IV Last administered on 11/12/19at 22:14; Start 11/12/19 at 22:00; Stop 11/13/19 at 21:59; Status DC Daptomycin 500 mg/ Sodium Chloride 50 ml @ 100 mls/hr Q24H IV Last administered on 11/22/19at 09:20; Start 11/13/19 at 09:00; Stop 11/23/19 at 08:20; Status DC Sodium Chloride 120 meq/Sodium Phosphate 10 mmol/ Potassium Chloride 30 meq/ Potassium Acetate 30 meq/Magnesium Sulfate 15 meq/ Multivitamins 10 ml/Chromium/ Copper/Manganese/ Seleni/Zn 1 ml/ Insulin Human Regular 15 unit/ Total Parenteral Nutrition/Amino Acids/Dextrose/ Fat Emulsion Intravenous 1,680 ml @ 70 mls/hr TPN CONT IV ; Start 11/13/19 at 22:00; Stop 11/14/19 at 21:59; Status Cancel Amino Acids/ Glycerin/ Electrolytes 1,000 ml @ 80 mls/hr [id number] IV Last administered on 11/19/19at 18:10; Start 11/13/19 at 10:15; Stop 11/20/19 at 07:07; Status DC Iohexol (Omnipaque 300 Mg/ml) 50 ml 1X ONCE IJ ; Start 11/15/19 at 11:00; Stop 11/15/19 at 11:01; Status DC Sodium Chloride 500 ml @ 500 mls/hr 1X ONCE IV Last administered on 11/15/19at 18:30; Start 11/15/19 at 18:30; Stop 11/15/19 at 19:29; Status DC Lidocaine HCl (Buffered Lidocaine 1%) 3 ml 1X ONCE INJ ; Start 11/17/19 at 12:15; Stop 11/17/19 at 12:17; Status DC Fentanyl Citrate (Fentanyl 2ml Vial) 25 mcg PRN Q6HRS PRN IVP SEE INSTUCTIONS Last administered on 12/01/19at 15:54; Start 11/21/19 at 10:00 Sodium Chloride 1,000 ml @ 125 mls/hr Q8H IV Last administered on 11/21/19at 23:16; Start 11/21/19 at 23:21; Stop 11/22/19 at 09:23; Status DC Sodium Chloride 1,000 ml @ 350 mls/hr 1X ONCE IV Last administered on 11/21/19at 20:29; Start 11/21/19 at 20:30; Stop 11/21/19 at 23:21; Status DC Vitamin A/Vitamin D (Vitamin A & D Ointment) 1 ramu PRN Q1HR PRN TP SKIN PROTECTION Last administered on 12/01/19at 08:36; Start 11/22/19 at 09:15 Iohexol (Omnipaque 240 Mg/ml) 50 ml STK-MED ONCE .ROUTE ; Start 11/22/19 at 14:18; Stop 11/22/19 at 14:19; Status DC Lidocaine HCl (Buffered Lidocaine 1%) 3 ml STK-MED ONCE .ROUTE ; Start 11/22/19 at 14:19; Stop 11/22/19 at 14:19; Status DC Fentanyl Citrate (Fentanyl 2ml Vial) 100 mcg STK-MED ONCE .ROUTE ; Start 11/22/19 at 15:03; Stop 11/22/19 at 15:03; Status DC Lidocaine HCl (Buffered Lidocaine 1%) 5 ml 1X ONCE INJ Last administered on 11/22/19at 15:00; Start 11/22/19 at 15:45; Stop 11/22/19 at 15:46; Status DC Iohexol (Omnipaque 240 Mg/ml) 10 ml 1X ONCE IJ Last administered on 11/22/19at 15:00; Start 11/22/19 at 15:45; Stop 11/22/19 at 15:46; Status DC Multivitamins/ Minerals Therapeutic (Centrum Multivit-Mineral Liq) 5 ml DAILY PEG Last administered on 12/02/19at 08:40; Start 11/23/19 at 09:00 Alteplase, Recombinant 5 mg/ Sodium Chloride 30 ml @ 30 mls/hr 1X PRN IV SEE COMMENTS; Start 11/23/19 at 06:45; Status UNV Alteplase, Recombinant (Cathflo For Central Catheter Clearance) 1 mg 1X ONCE INT CAT Last administered on 11/23/19at 09:30; Start 11/23/19 at 07:00; Stop 11/23/19 at 07:01; Status DC Sodium Chloride 1,000 ml @ 125 mls/hr 1X ONCE IV Last administered on 11/23/19at 16:12; Start 11/23/19 at 14:30; Stop 11/23/19 at 22:29; Status DC Furosemide (Lasix) 40 mg 1X ONCE IVP Last administered on 11/23/19at 16:17; Start 11/23/19 at 14:30; Stop 11/23/19 at 14:33; Status DC Furosemide (Lasix) 40 mg [id number] IVP Last administered on 11/24/19at 13:51; Start 11/24/19 at 09:00; Stop 11/24/19 at 14:01; Status DC Sodium Chloride 1,000 ml @ 125 mls/hr 1X ONCE IV Last administered on 11/24/19at 08:20; Start 11/24/19 at 07:45; Stop 11/24/19 at 15:44; Status DC Calcitonin [place] (Miacalcin) 400 unit BID SQ Last administered on 11/24/19at 18:18; Start 11/24/19 at 18:00; Stop 11/25/19 at 15:56; Status DC Zoledronic Acid 100 ml @ 400 mls/hr 1X ONCE IV Last administered on 11/25/19at 13:04; Start 11/25/19 at 12:00; Stop 11/25/19 at 12:14; Status DC Metoprolol Tartrate (Lopressor Vial) 5 mg 1X ONCE IVP Last administered on 11/27/19at 10:54; Start 11/27/19 at 10:45; Stop 11/27/19 at 10:46; Status DC Cefepime HCl (Maxipime) 2 gm Q12HR IVP Last administered on 12/02/19at 08:40; Start 11/28/19 at 10:00 Metronidazole 100 ml @ 100 mls/hr Q12HR IV Last administered on 12/02/19at 08:40; Start 11/28/19 at 10:00 Sodium Chloride 1,000 ml @ 75 mls/hr [id number] IV Last administered on 11/29/19at 09:55; Start 11/28/19 at 18:45; Stop 11/30/19 at 11:12; Status DC Sodium Chloride 1,000 ml @ 1,000 mls/hr 1X ONCE IV Last administered on 11/29/19at 14:00; Start 11/29/19 at 14:00; Stop 11/29/19 at 14:59; Status DC Ringer's Solution 1,000 ml @ 175 mls/hr [id number] IV Last administered on 12/02/19at 05:58; Start 11/29/19 at 14:30 Sodium Bicarbonate (Sodium Bicarb Adult 8.4% Syr) 100 meq 1X ONCE IV Last administered on 11/29/19at 14:32; Start 11/29/19 at 14:30; Stop 11/29/19 at 14:35; Status DC Sodium Bicarbonate (Sodium Bicarb Adult 8.4% Syr) 50 meq STK-MED ONCE .ROUTE ; Start 11/29/19 at 14:30; Stop 11/29/19 at 14:30; Status DC Sodium Chloride 1,000 ml @ 1,000 mls/hr 1X ONCE IV Last administered on 11/30/19at 09:18; Start 11/30/19 at 08:45; Stop 11/30/19 at 09:44; Status DC Sodium Chloride 1,000 ml @ 1,000 mls/hr 1X ONCE IV Last administered on 11/30/19at 17:17; Start 11/30/19 at 17:15; Stop 11/30/19 at 18:14; Status DC Sodium Chloride 1,000 ml @ 1,000 mls/hr 1X ONCE IV Last administered on 12/01/19at 09:39; Start 12/01/19 at 09:45; Stop 12/01/19 at 10:44; Status DC Sodium Chloride 1,000 ml @ 1,000 mls/hr 1X ONCE IV Last administered on 12/01/19at 17:36; Start 12/01/19 at 18:00; Stop 12/01/19 at 18:59; Status DC Active Scripts Active Reported Bisoprolol Fumarate 5 Mg Tablet 10 Mg PO DAILY Vitals/I & O Vital Sign - Last 24 Hours 12/01/19 12/01/19 12/01/19 12/01/19 13:25 14:34 15:12 15:40 Temp 97.4 97.4 97.4 97.4 Pulse 128 128 Resp 24 22 B/P (MAP) 105/48 (67) 105/48 Pulse Ox 98 96 98 O2 Delivery Nasal Cannula Nasal Cannula Nasal Cannula O2 Flow Rate 1.5 1.5 1.5 12/01/19 12/01/19 12/01/19 12/01/19 15:54 16:15 16:24 17:15 Temp 97.5 97.5 97.5 97.5 Pulse 120 120 Resp 24 B/P (MAP) 102/48 107/56 Pulse Ox 98 98 O2 Delivery Nasal Cannula Nasal Cannula O2 Flow Rate 1.5 1.5 12/01/19 12/01/19 12/01/19 12/01/19 18:27 19:59 20:00 20:04 Temp 97.5 98.1 97.5 98.1 Pulse 117 121 Resp 24 24 B/P (MAP) 108/50 114/73 (87) Pulse Ox 96 98 O2 Delivery Nasal Cannula Nasal Cannula Nasal Cannula O2 Flow Rate 2.0 2.0 1.5 12/01/19 12/01/19 12/02/19 12/02/19 20:05 22:43 00:21 03:00 Temp 98.0 98.0 Pulse 124 Resp 22 B/P (MAP) 135/59 (84) Pulse Ox 98 100 O2 Delivery Nasal Cannula Nasal Cannula Nasal Cannula Nasal Cannula O2 Flow Rate 1.5 2.0 2.0 12/02/19 12/02/19 12/02/19 12/02/19 03:40 04:51 07:00 08:00 Temp 97.8 97.5 97.8 97.5 Pulse 121 117 Resp 24 28 B/P (MAP) 110/66 (81) 102/55 (71) Pulse Ox 96 99 O2 Delivery Nasal Cannula Nasal Cannula Nasal Cannula Nasal Cannula O2 Flow Rate 2.0 2.0 2.0 2.0 12/02/19 12/02/19 12/02/19 12/02/19 08:09 08:10 11:00 12:11 Temp 97.0 97.0 Pulse 113 Resp 26 B/P (MAP) 96/56 (69) Pulse Ox 98 98 98 98 O2 Delivery Nasal Cannula Nasal Cannula Nasal Cannula Nasal Cannula O2 Flow Rate 2.0 2.0 2.0 2.0 Intake and Output 12/01/19 12/01/19 12/02/19 15:00 23:00 07:00 Intake Total 0 ml 1032 ml 0 ml Output Total 825 ml 1050 ml Balance 0 ml 207 ml -1050 ml Justicifation of Admission Dx: Justifications for Admission: Justification of Admission Dx: Yes GREG HERRERA MD Dec 02, 2019 12:55
[2019-12-02] MEDS ORDERED: IV NORMAL SALINE 1000ML BAG 1,000 ML IV ONE (13:00)
[2019-12-02] MEDS: fentaNYL PF VIAL 100 MCG/2 ML VIAL IVP PRN (13:33)
[2019-12-02 14:24] LABS: BASO % 0 % (0-3); EOS # 0.1 x10^3/uL (0.0-0.7); EOS % 1 % (0-3); HEMATOCRIT 25.7 % (36.0-47.0); HEMOGLOBIN 7.9 g/dL (12.0-15.5); LYMPH # 1.4 x10^3/uL (1.0-4.8); LYMPH % 14 % (24-48); MEAN CORPUSCULAR HEMOGLOBIN 28 pg (25-35); MEAN CORPUSCULAR HGB CONC 31 g/dL (31-37); MEAN CORPUSCULAR VOLUME 91 fL (79-100); MONO # 0.8 x10^3/uL (0.0-1.1); MONO % 8 % (0-9); NEUT # 7.7 x10^3/uL (1.8-7.7); NEUT % 77 % (31-73); PLATELET COUNT 320 x10^3/uL (140-400); RED BLOOD COUNT 2.83 x10^6/uL (3.50-5.40); RED CELL DISTRIBUTION WIDTH 20.7 % (11.5-14.5)
[2019-12-02 14:34] LABS: ALBUMIN 0.9 g/dL (3.4-5.0); ALBUMIN/GLOBULIN RATIO 0.3 (1.0-1.7); ALK PHOS 72 U/L (46-116); ANION GAP 12 (6-14); AST (SGOT) 13 U/L (15-37); BLOOD UREA NITROGEN 58 mg/dL (7-20); BUN/CREATININE RATIO 34 (6-20); CARBON DIOXIDE 17 mmol/L (21-32); CHLORIDE 124 mmol/L (98-107); CREATININE 1.7 mg/dL (0.6-1.0); GFR 31.9; GLUCOSE 171 mg/dL (70-99); SODIUM 153 mmol/L (136-145); TOTAL BILIRUBIN 0.2 mg/dL (0.2-1.0)
[2019-12-02 14:36] LABS: ALT (SGPT) < 6 U/L (14-59); CALCIUM 5.7 mg/dL (8.5-10.1); POTASSIUM 2.9 mmol/L (3.5-5.1)
[2019-12-02] MEDS ORDERED: CALCIUM GLUCONATE 1,000 MG/10 ML VIAL. IVP ONE (14:45)
[2019-12-02] MEDS ORDERED: SODIUM BICARBONATE VIAL 150 MEQ in IV STERILE WATER 1,000 ML IV ONE (15:00)
[2019-12-02] MEDS ORDERED: MAGNESIUM SULFATE 2GM 50 ML IV ONE (15:00)
[2019-12-02 15:16] VITALS: BP 135/62
[2019-12-02] MEDS: ENOXAPARIN 40 MG/0.4 ML SYRINGE. SQ SCH (15:25)
[2019-12-02] MEDS: POTASSIUM CHLORIDE 20MEQ 100 ML IV SCH ×2 (15:28→17:09)
[2019-12-02 19:37] VITALS: BP 124/67
[2019-12-02 23:14] VITALS: BP 119/68
[2019-12-03] MEDS: IV RINGERS,LACTATED 1000ML 1,000 ML IV SCH ×3 (02:20→22:30)
[2019-12-03] MEDS: IPRATRPIUM/ALBUTEROL 0.5/2.5MG 3 ML NEBU. NEB SCH ×6 (03:06→20:14)
[2019-12-03 03:25] VITALS: BP 107/63
[2019-12-03 04:22] LABS: BASO % 0 % (0-3); EOS # 0.1 x10^3/uL (0.0-0.7); EOS % 1 % (0-3); HEMATOCRIT 27.6 % (36.0-47.0); HEMOGLOBIN 8.6 g/dL (12.0-15.5); LYMPH # 1.6 x10^3/uL (1.0-4.8); LYMPH % 12 % (24-48); MEAN CORPUSCULAR HEMOGLOBIN 28 pg (25-35); MEAN CORPUSCULAR HGB CONC 31 g/dL (31-37); MEAN CORPUSCULAR VOLUME 88 fL (79-100); MONO # 0.9 x10^3/uL (0.0-1.1); MONO % 7 % (0-9); NEUT # 10.9 x10^3/uL (1.8-7.7); NEUT % 80 % (31-73); PLATELET COUNT 366 x10^3/uL (140-400); RED BLOOD COUNT 3.13 x10^6/uL (3.50-5.40); RED CELL DISTRIBUTION WIDTH 20.2 % (11.5-14.5); WHITE BLOOD COUNT 13.6 x10^3/uL (4.0-11.0)
[2019-12-03 05:08] LABS: ALBUMIN/GLOBULIN RATIO 0.3 (1.0-1.7); CALCIUM 6.8 mg/dL (8.5-10.1); GFR 26.5; POTASSIUM 3.8 mmol/L (3.5-5.1); TOTAL BILIRUBIN 0.2 mg/dL (0.2-1.0); TOTAL PROTEIN 4.6 g/dL (6.4-8.2)
[2019-12-03] MEDS: INSULIN LISPRO 300 UNITS/3 ML VIAL. SQ SCH ×4 (06:00→18:00)
[2019-12-03 07:00] VITALS: BP 98/48
[2019-12-03] MEDS: ACETYLCYSTEINE 20% for RESP TX 600 MG/3 ML. NEB SCH ×2 (07:54→20:14)
[2019-12-03] MEDS: MULTIVITAMINS,THERAPEUTIC 5 ML ORAL LIQUID. PEG SCH (08:37)
[2019-12-03] MEDS: fentaNYL 12MCG/HR PATCH 1 PATCH PATCH.TD72 TD SCH (08:38)
[2019-12-03] MEDS: PANTOPRAZOLE IV PUSH 40 MG VIAL. IVP SCH (08:40)
[2019-12-03] MEDS: ENOXAPARIN 40 MG/0.4 ML SYRINGE. SQ SCH (08:54)
[2019-12-03] MEDS: CEFEPIME HCL IV Push 2 GM VIAL. IVP SCH ×2 (08:55→21:05)
--- NOTE | 2019-12-03 10:21 | PDOC ---
Infectious Disease Note Subjective Subjective Noncommunicative, lethargic No fevers las 48 hrs Vital Sign Vital Signs Vital Signs Date Time Temp Pulse Resp B/P (MAP) Pulse Ox O2 Delivery O2 Flow Rate FiO2 12/03/19 08:38 97 Tracheal Collar 12/03/19 07:55 2.0 12/03/19 07:00 97.9 121 20 98/48 (65) 97.9 Physical Exam PHYSICAL EXAM GENERAL: Resting in bed, NAD HEENT: Pupils equal, oral cavity dry. OC/Op - Dry NECK: Tracheostomy capped LUNGS: Diminished aeration bases, HEART: S1, S2, ABDOMEN: Less distended, mild- bowel sounds hypoactive, soft, GJ drain present, drainage bag in place with depedent drainage : Lind in place EXTREMITIES: Trace generalized edema, no cyanosis. Yeast in groin area SKIN: warm touch. No signs of rash. NEURO: - Alert and responsive RUE PICC site without signs of complications. PIV s clean EC fistula Labs Lab Laboratory Tests Test 12/02/19 12:11 12/02/19 14:00 12/02/19 17:31 12/03/19 00:23 Glucose (Fingerstick) 208 mg/dL (70-99) 125 mg/dL (70-99) 161 mg/dL (70-99) White Blood Count 10.0 x10^3/uL (4.0-11.0) Red Blood Count 2.83 x10^6/uL (3.50-5.40) Hemoglobin 7.9 g/dL (12.0-15.5) Hematocrit 25.7 % (36.0-47.0) Mean Corpuscular Volume 91 fL (79-100) Mean Corpuscular Hemoglobin 28 pg (25-35) Mean Corpuscular Hemoglobin Concent 31 g/dL (31-37) Red Cell Distribution Width 20.7 % (11.5-14.5) Platelet Count 320 x10^3/uL (140-400) Neutrophils (%) (Auto) 77 % (31-73) Lymphocytes (%) (Auto) 14 % (24-48) Monocytes (%) (Auto) 8 % (0-9) Eosinophils (%) (Auto) 1 % (0-3) Basophils (%) (Auto) 0 % (0-3) Neutrophils # (Auto) 7.7 x10^3/uL (1.8-7.7) Lymphocytes # (Auto) 1.4 x10^3/uL (1.0-4.8) Monocytes # (Auto) 0.8 x10^3/uL (0.0-1.1) Eosinophils # (Auto) 0.1 x10^3/uL (0.0-0.7) Basophils # (Auto) 0.0 x10^3/uL (0.0-0.2) Sodium Level 153 mmol/L (136-145) Potassium Level 2.9 mmol/L (3.5-5.1) Chloride Level 124 mmol/L (98-107) Carbon Dioxide Level 17 mmol/L (21-32) Anion Gap 12 (6-14) Blood Urea Nitrogen 58 mg/dL (7-20) Creatinine 1.7 mg/dL (0.6-1.0) Estimated GFR (Cockcroft-Gault) 31.9 BUN/Creatinine Ratio 34 (6-20) Glucose Level 171 mg/dL (70-99) Calcium Level 5.7 mg/dL (8.5-10.1) Total Bilirubin 0.2 mg/dL (0.2-1.0) Aspartate Amino Transf (AST/SGOT) 13 U/L (15-37) Alanine Aminotransferase (ALT/SGPT) < 6 U/L (14-59) Alkaline Phosphatase 72 U/L (46-116) Total Protein 4.0 g/dL (6.4-8.2) Albumin 0.9 g/dL (3.4-5.0) Albumin/Globulin Ratio 0.3 (1.0-1.7) Test 12/03/19 04:00 12/03/19 05:23 White Blood Count 13.6 x10^3/uL (4.0-11.0) Red Blood Count 3.13 x10^6/uL (3.50-5.40) Hemoglobin 8.6 g/dL (12.0-15.5) Hematocrit 27.6 % (36.0-47.0) Mean Corpuscular Volume 88 fL (79-100) Mean Corpuscular Hemoglobin 28 pg (25-35) Mean Corpuscular Hemoglobin Concent 31 g/dL (31-37) Red Cell Distribution Width 20.2 % (11.5-14.5) Platelet Count 366 x10^3/uL (140-400) Neutrophils (%) (Auto) 80 % (31-73) Lymphocytes (%) (Auto) 12 % (24-48) Monocytes (%) (Auto) 7 % (0-9) Eosinophils (%) (Auto) 1 % (0-3) Basophils (%) (Auto) 0 % (0-3) Neutrophils # (Auto) 10.9 x10^3/uL (1.8-7.7) Lymphocytes # (Auto) 1.6 x10^3/uL (1.0-4.8) Monocytes # (Auto) 0.9 x10^3/uL (0.0-1.1) Eosinophils # (Auto) 0.1 x10^3/uL (0.0-0.7) Basophils # (Auto) 0.0 x10^3/uL (0.0-0.2) Sodium Level 152 mmol/L (136-145) Potassium Level 3.8 mmol/L (3.5-5.1) Chloride Level 119 mmol/L (98-107) Carbon Dioxide Level 19 mmol/L (21-32) Anion Gap 14 (6-14) Blood Urea Nitrogen 61 mg/dL (7-20) Creatinine 2.0 mg/dL (0.6-1.0) Estimated GFR (Cockcroft-Gault) 26.5 BUN/Creatinine Ratio 31 (6-20) Glucose Level 180 mg/dL (70-99) Calcium Level 6.8 mg/dL (8.5-10.1) Total Bilirubin 0.2 mg/dL (0.2-1.0) Aspartate Amino Transf (AST/SGOT) 16 U/L (15-37) Alanine Aminotransferase (ALT/SGPT) 8 U/L (14-59) Alkaline Phosphatase 83 U/L (46-116) Total Protein 4.6 g/dL (6.4-8.2) Albumin 1.0 g/dL (3.4-5.0) Albumin/Globulin Ratio 0.3 (1.0-1.7) Glucose (Fingerstick) 155 mg/dL (70-99) Micro Objective Assessment Patient with prolonged hospitalization more than 3 months Multiple medical problems Multiple surgical procedures Intermittent fevers now improving Pyruia from 11/27 S/P Exp. 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 parapsilosis & PSAE (I-merrem/ceftazidime/AZT/cefepime), treated Leukocytosis - better Loose stool on tube feed - C. diff neg 11/11, 11/29 Anemia Acute gallstone pancreatitis with persistent necrosis - 07/27. CT A/P Increased ascites. 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 status post KAYLIN drain placement; C. parapsilosis. s/p drain 08/23 + yeast & high amylase; s/p additional drain on 08/25. Drains removed. -08/23. fluid devyn parapsilosis fluid, amylase high - 09/23 showed multiple pseudocysts, slight larger on the right. s/p drains x 3, 09/24. PSAE (MDRO-R Cefepime, Zosyn ALEXANDRA < 64) and yeast, -09/24 s/p drain replacement x 3; fluid cult PSAE (MDRO), yeast; treated -10/29 CT A/P shows smaller fluid collections. -722 CT abdomen and pelvis drains in place Ascites s/p paracentesis 08/02 & 08/23. C. parapsilosis Cholelithiasis with thickening of the gallbladder wall. JUANA with electrolyte imbalances. h/o HD Acute hypoxic resp failure. trach/vent. 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 Lind changed Diarrhea C. difficile negative Encephalopathy Plan Plan of Care Continue cefepime, renal dosing as needed and flagyl 11/27, C diff neg 11/29 BC negative so far Follow-up cultures and monitor labs Lind changed 11/28 Nystatin to groin Right upper extremity PICC line placed 11/17 Wound care /drain management as directed Contact isolation for CRE/MDRO jail prognosis poor D/w nursing Attending Co-Sign Attending Co-Sign Attending Co-Sign The patient was seen and examined at the bedside. The chart was reviewed.Agree with the plan of care. FRANCA HOBSON APRN Dec 03, 2019 10:21 YUNIOR JONES MD Dec 03, 2019 13:13
[2019-12-03 10:59] VITALS: BP 117/68
--- NOTE | 2019-12-03 13:00 | PDOC ---
PROGRESS NOTES Date of Service: DATE: 12/03/19 TIME: 12:47 Chief Complaint Chief Complaint S/P Exp. 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 parapsilosis & PSAE 11/12 (I-merrem/ceftazidime/AZT/cefepime)) Leucocytosis Fevers, intermittent Acute gallstone pancreatitis with persistent necrosis Acute hypoxic Respiratory failure required mechanical ventilation Tracheostomy Bilateral pleural effusions/pulm edema s/p Throacentesis on 10/03/2019 HTN Intractable pain Intractable nausea Covid 19 negative Acute on chronic anemia Abd distention - U/S and CT reviewed s/p 0.4 L of opaque, debris-containing ascites was removed 08/23 Gallstone pancreatitis with necrosis. -CT A/P 09/23 showed multiple pseudocysts, slight larger on the right. s/p drains x 3, 09/24. + PSAE (MDRO-R Cefepime, Zosyn ALEXANDRA < 64) and yeast, -s/p drain 08/14. C. parapsilosis. s/p drain 08/23 + yeast & high amylase; s/p additional drain on 08/25. Drains removed. Ascites s/p paracentesis 08/02 & 08/23. C. parapsilosis JUANA. off HD. A large fluid collection in the pancreatic bed has slightly decreased in size, described below, the pancreas itself is difficult to visualize, which could be due to necrosis or obscuration of pancreatic parenchyma from the surrounding fluid collection.10/02 - 08/14 status post KAYLIN drain placement + C paropsilosis. s/p additional drains 08/25 Hypocalcemia Prediabetes s/p trach Hyperglycemia Severe protein-caloric malnutrition Extensive retroperitoneal fluid collections persist. Percutaneous drains remain within the collections in both paracolic gutters. These communicate with additional pelvic and peripancreatic collections. History of Present Illness History of Present Illness 12/02 Patient without complaints. Per nurse reports some hypotension this am that improved spontaneously. 12/01 Will check Hb/Hct levels today in response to prbc; patient largely nonverbal but denies pain 11/30, increased IV fluid, cont current bolusing daily , LR increased cr better, Hgb worse today, will give 1 u PRBC 11/29. pain in legs, BP better, some better Urine outptu 11/28. dyspnea and mild distress worsened this AM. but was able to walk some with PT later. still HR 140 sometimes, 11/28/2019 Patient seen and examined Afebrile Resting in NAD Tachycardic and tachypneic overnight Recurring leukocytosis, 23.0 Chart reviewed Discussed with RN 11/26: Afebrile. Calcium down to 10.1. Little more tachycardic today with some more secretions. No O2 requirements. Does not wish to wear her speaking valve. Will check CXR. 11/25: Afebrile, weak, having more secretions not wearing a speaking valve today. WBC 10, Hb 8.8, NA 144, and K3.7, BUN 12, CR 0.5, calcium down to 10.3. After zoledronic acid 11/24: Had a rash after calcitonin injection. Discussed with nephrology with her calcium moving from 11.3-10.9 will give IV bisphosphonate today, zoledronic acid. 11/23: Hb stable. Afebrile. Weak. Calcium increased. Shortness of breath is improving. Plan for calcitonin today, lasix, and saline 11/22: Hemoglobin abnormally low on repeat has been stable 7.2. Calcium up to 10.9. She is able to work with PT, she is asking to eat. Social work is been having difficulties with both of her daughters completing the financial aspect of disability paperwork which is been prolonging her stay over the past 5 months. Plan to check PTH and to treat hypercalcemia with 1 L normal saline 40 mg of IV Lasix and repeat labs in a.m. 11/21: Not wishing to wear her speaking valve. J tube having some difficulties. Afebrile. Jamaal bedside to aid her. transferred from ICU today 11/20: No overnight events. Calcium 10.7 on AM labs. She is still a bit slow to to respond, but follows commands well. Does not want speaking valve with me. Pain is better controlled in her abdomen. Wound care to see today. Will check liver function and phos levels given her calcium elevation. 11/19: Patient seen and examined bedside. Positive fluid balance in the past 24 hours. Patient's chart, labs, images were reviewed and discussed with RN 11/18: No acute events overnight. Seen and examined at bedside. Patient had a fever 100.2. Negative fluid balance of 150 cc. Patient's chart, labs, images w ere reviewed and discussed with RN 11/17: Patient seen and examined at bedside. No acute events overnight. Positive fluid balance 633. Patient's chart, labs, images were reviewed and discussed with RN 11/16: Patient seen and examined bedside. No acute events overnight. Patient's chart, labs, images were reviewed and discussed with RN 11/14: Patient seen and examined bedside. Patient appears to be in no obvious pain. All drains have been adequately draining. Patient continues to be on TPN. Chart labs and imaging was reviewed. Negative fluid balance of 270 cc 11/13:Patient seen and examined in the ICU. Patient still requires extensive care. 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 Chart, labs, imaging was reviewed. UOP with + 500cc balance. 11/11: Patient seen in and examined in the ICU. She is still extremely critically ill. Appears weak, frail, and pale. Better color today with improved eye contact and expression. Discussed with RN. Chart reviewed 11/07: Patient seen and examined in the ICU, She is still extremely critically ill, Appears extremely weak frail and pale, Discussed with RN, Chart reviewed Vitals Vitals Vital Signs Date Time Temp Pulse Resp B/P (MAP) Pulse Ox O2 Delivery O2 Flow Rate FiO2 12/03/19 11:44 Nasal Cannula 2.0 12/03/19 10:59 97.8 127 20 117/68 (84) 98 97.8 Physical Exam Physical Exam GENERAL: Resting in bed, NAD HEENT: Pupils equal, oral cavity dry. OC/Op - Dry NECK: Tracheostomy capped LUNGS: Diminished aeration bases, HEART: S1, S2, ABDOMEN: Less distended, mild- bowel sounds hypoactive, soft, GJ drain present, drainage bag in place with depedent drainage : Lind in place EXTREMITIES: Trace generalized edema, no cyanosis. Yeast in groin area SKIN: warm touch. No signs of rash. NEURO: - Alert and responsive RUE PICC site without signs of complications. PIV s clean EC fistula General: Cooperative, mild distress Heart: Normal S1, Normal S2, Other Lungs: Clear Abdomen: Normal bowel sounds, Soft, No tenderness Extremities: No clubbing, No cyanosis, Other (Diffuse edema) Skin: No breakdown Labs LABS Laboratory Tests Test 12/02/19 14:00 12/02/19 17:31 12/03/19 00:23 12/03/19 04:00 White Blood Count 10.0 x10^3/uL (4.0-11.0) 13.6 x10^3/uL (4.0-11.0) Red Blood Count 2.83 x10^6/uL (3.50-5.40) 3.13 x10^6/uL (3.50-5.40) Hemoglobin 7.9 g/dL (12.0-15.5) 8.6 g/dL (12.0-15.5) Hematocrit 25.7 % (36.0-47.0) 27.6 % (36.0-47.0) Mean Corpuscular Volume 91 fL (79-100) 88 fL (79-100) Mean Corpuscular Hemoglobin 28 pg (25-35) 28 pg (25-35) Mean Corpuscular Hemoglobin Concent 31 g/dL (31-37) 31 g/dL (31-37) Red Cell Distribution Width 20.7 % (11.5-14.5) 20.2 % (11.5-14.5) Platelet Count 320 x10^3/uL (140-400) 366 x10^3/uL (140-400) Neutrophils (%) (Auto) 77 % (31-73) 80 % (31-73) Lymphocytes (%) (Auto) 14 % (24-48) 12 % (24-48) Monocytes (%) (Auto) 8 % (0-9) 7 % (0-9) Eosinophils (%) (Auto) 1 % (0-3) 1 % (0-3) Basophils (%) (Auto) 0 % (0-3) 0 % (0-3) Neutrophils # (Auto) 7.7 x10^3/uL (1.8-7.7) 10.9 x10^3/uL (1.8-7.7) Lymphocytes # (Auto) 1.4 x10^3/uL (1.0-4.8) 1.6 x10^3/uL (1.0-4.8) Monocytes # (Auto) 0.8 x10^3/uL (0.0-1.1) 0.9 x10^3/uL (0.0-1.1) Eosinophils # (Auto) 0.1 x10^3/uL (0.0-0.7) 0.1 x10^3/uL (0.0-0.7) Basophils # (Auto) 0.0 x10^3/uL (0.0-0.2) 0.0 x10^3/uL (0.0-0.2) Sodium Level 153 mmol/L (136-145) 152 mmol/L (136-145) Potassium Level 2.9 mmol/L (3.5-5.1) 3.8 mmol/L (3.5-5.1) Chloride Level 124 mmol/L (98-107) 119 mmol/L (98-107) Carbon Dioxide Level 17 mmol/L (21-32) 19 mmol/L (21-32) Anion Gap 12 (6-14) 14 (6-14) Blood Urea Nitrogen 58 mg/dL (7-20) 61 mg/dL (7-20) Creatinine 1.7 mg/dL (0.6-1.0) 2.0 mg/dL (0.6-1.0) Estimated GFR (Cockcroft-Gault) 31.9 26.5 BUN/Creatinine Ratio 34 (6-20) 31 (6-20) Glucose Level 171 mg/dL (70-99) 180 mg/dL (70-99) Calcium Level 5.7 mg/dL (8.5-10.1) 6.8 mg/dL (8.5-10.1) Total Bilirubin 0.2 mg/dL (0.2-1.0) 0.2 mg/dL (0.2-1.0) Aspartate Amino Transf (AST/SGOT) 13 U/L (15-37) 16 U/L (15-37) Alanine Aminotransferase (ALT/SGPT) < 6 U/L (14-59) 8 U/L (14-59) Alkaline Phosphatase 72 U/L (46-116) 83 U/L (46-116) Total Protein 4.0 g/dL (6.4-8.2) 4.6 g/dL (6.4-8.2) Albumin 0.9 g/dL (3.4-5.0) 1.0 g/dL (3.4-5.0) Albumin/Globulin Ratio 0.3 (1.0-1.7) 0.3 (1.0-1.7) Glucose (Fingerstick) 125 mg/dL (70-99) 161 mg/dL (70-99) Test 12/03/19 05:23 12/03/19 12:38 Glucose (Fingerstick) 155 mg/dL (70-99) 167 mg/dL (70-99) Review of Systems Review of Systems Unable to obtain due to clinical condition. Assessment and Plan Assessmemt and Plan Problems Medical Problems: (1) Acute pancreatitis Status: Acute (2) Cholelithiasis Status: Acute Comment Review of Relevant I have reviewed the following items kolby (where applicable) has been applied. Labs Laboratory Tests Test 12/01/19 17:51 12/01/19 22:54 12/02/19 07:22 12/02/19 12:11 Glucose (Fingerstick) 167 mg/dL (70-99) 150 mg/dL (70-99) 205 mg/dL (70-99) 208 mg/dL (70-99) Test 12/02/19 14:00 12/02/19 17:31 12/03/19 00:23 12/03/19 04:00 White Blood Count 10.0 x10^3/uL (4.0-11.0) 13.6 x10^3/uL (4.0-11.0) Red Blood Count 2.83 x10^6/uL (3.50-5.40) 3.13 x10^6/uL (3.50-5.40) Hemoglobin 7.9 g/dL (12.0-15.5) 8.6 g/dL (12.0-15.5) Hematocrit 25.7 % (36.0-47.0) 27.6 % (36.0-47.0) Mean Corpuscular Volume 91 fL (79-100) 88 fL (79-100) Mean Corpuscular Hemoglobin 28 pg (25-35) 28 pg (25-35) Mean Corpuscular Hemoglobin Concent 31 g/dL (31-37) 31 g/dL (31-37) Red Cell Distribution Width 20.7 % (11.5-14.5) 20.2 % (11.5-14.5) Platelet Count 320 x10^3/uL (140-400) 366 x10^3/uL (140-400) Neutrophils (%) (Auto) 77 % (31-73) 80 % (31-73) Lymphocytes (%) (Auto) 14 % (24-48) 12 % (24-48) Monocytes (%) (Auto) 8 % (0-9) 7 % (0-9) Eosinophils (%) (Auto) 1 % (0-3) 1 % (0-3) Basophils (%) (Auto) 0 % (0-3) 0 % (0-3) Neutrophils # (Auto) 7.7 x10^3/uL (1.8-7.7) 10.9 x10^3/uL (1.8-7.7) Lymphocytes # (Auto) 1.4 x10^3/uL (1.0-4.8) 1.6 x10^3/uL (1.0-4.8) Monocytes # (Auto) 0.8 x10^3/uL (0.0-1.1) 0.9 x10^3/uL (0.0-1.1) Eosinophils # (Auto) 0.1 x10^3/uL (0.0-0.7) 0.1 x10^3/uL (0.0-0.7) Basophils # (Auto) 0.0 x10^3/uL (0.0-0.2) 0.0 x10^3/uL (0.0-0.2) Sodium Level 153 mmol/L (136-145) 152 mmol/L (136-145) Potassium Level 2.9 mmol/L (3.5-5.1) 3.8 mmol/L (3.5-5.1) Chloride Level 124 mmol/L (98-107) 119 mmol/L (98-107) Carbon Dioxide Level 17 mmol/L (21-32) 19 mmol/L (21-32) Anion Gap 12 (6-14) 14 (6-14) Blood Urea Nitrogen 58 mg/dL (7-20) 61 mg/dL (7-20) Creatinine 1.7 mg/dL (0.6-1.0) 2.0 mg/dL (0.6-1.0) Estimated GFR (Cockcroft-Gault) 31.9 26.5 BUN/Creatinine Ratio 34 (6-20) 31 (6-20) Glucose Level 171 mg/dL (70-99) 180 mg/dL (70-99) Calcium Level 5.7 mg/dL (8.5-10.1) 6.8 mg/dL (8.5-10.1) Total Bilirubin 0.2 mg/dL (0.2-1.0) 0.2 mg/dL (0.2-1.0) Aspartate Amino Transf (AST/SGOT) 13 U/L (15-37) 16 U/L (15-37) Alanine Aminotransferase (ALT/SGPT) < 6 U/L (14-59) 8 U/L (14-59) Alkaline Phosphatase 72 U/L (46-116) 83 U/L (46-116) Total Protein 4.0 g/dL (6.4-8.2) 4.6 g/dL (6.4-8.2) Albumin 0.9 g/dL (3.4-5.0) 1.0 g/dL (3.4-5.0) Albumin/Globulin Ratio 0.3 (1.0-1.7) 0.3 (1.0-1.7) Glucose (Fingerstick) 125 mg/dL (70-99) 161 mg/dL (70-99) Test 12/03/19 05:23 12/03/19 12:38 Glucose (Fingerstick) 155 mg/dL (70-99) 167 mg/dL (70-99) Laboratory Tests Test 12/02/19 14:00 12/02/19 17:31 12/03/19 00:23 12/03/19 04:00 White Blood Count 10.0 x10^3/uL (4.0-11.0) 13.6 x10^3/uL (4.0-11.0) Red Blood Count 2.83 x10^6/uL (3.50-5.40) 3.13 x10^6/uL (3.50-5.40) Hemoglobin 7.9 g/dL (12.0-15.5) 8.6 g/dL (12.0-15.5) Hematocrit 25.7 % (36.0-47.0) 27.6 % (36.0-47.0) Mean Corpuscular Volume 91 fL (79-100) 88 fL (79-100) Mean Corpuscular Hemoglobin 28 pg (25-35) 28 pg (25-35) Mean Corpuscular Hemoglobin Concent 31 g/dL (31-37) 31 g/dL (31-37) Red Cell Distribution Width 20.7 % (11.5-14.5) 20.2 % (11.5-14.5) Platelet Count 320 x10^3/uL (140-400) 366 x10^3/uL (140-400) Neutrophils (%) (Auto) 77 % (31-73) 80 % (31-73) Lymphocytes (%) (Auto) 14 % (24-48) 12 % (24-48) Monocytes (%) (Auto) 8 % (0-9) 7 % (0-9) Eosinophils (%) (Auto) 1 % (0-3) 1 % (0-3) Basophils (%) (Auto) 0 % (0-3) 0 % (0-3) Neutrophils # (Auto) 7.7 x10^3/uL (1.8-7.7) 10.9 x10^3/uL (1.8-7.7) Lymphocytes # (Auto) 1.4 x10^3/uL (1.0-4.8) 1.6 x10^3/uL (1.0-4.8) Monocytes # (Auto) 0.8 x10^3/uL (0.0-1.1) 0.9 x10^3/uL (0.0-1.1) Eosinophils # (Auto) 0.1 x10^3/uL (0.0-0.7) 0.1 x10^3/uL (0.0-0.7) Basophils # (Auto) 0.0 x10^3/uL (0.0-0.2) 0.0 x10^3/uL (0.0-0.2) Sodium Level 153 mmol/L (136-145) 152 mmol/L (136-145) Potassium Level 2.9 mmol/L (3.5-5.1) 3.8 mmol/L (3.5-5.1) Chloride Level 124 mmol/L (98-107) 119 mmol/L (98-107) Carbon Dioxide Level 17 mmol/L (21-32) 19 mmol/L (21-32) Anion Gap 12 (6-14) 14 (6-14) Blood Urea Nitrogen 58 mg/dL (7-20) 61 mg/dL (7-20) Creatinine 1.7 mg/dL (0.6-1.0) 2.0 mg/dL (0.6-1.0) Estimated GFR (Cockcroft-Gault) 31.9 26.5 BUN/Creatinine Ratio 34 (6-20) 31 (6-20) Glucose Level 171 mg/dL (70-99) 180 mg/dL (70-99) Calcium Level 5.7 mg/dL (8.5-10.1) 6.8 mg/dL (8.5-10.1) Total Bilirubin 0.2 mg/dL (0.2-1.0) 0.2 mg/dL (0.2-1.0) Aspartate Amino Transf (AST/SGOT) 13 U/L (15-37) 16 U/L (15-37) Alanine Aminotransferase (ALT/SGPT) < 6 U/L (14-59) 8 U/L (14-59) Alkaline Phosphatase 72 U/L (46-116) 83 U/L (46-116) Total Protein 4.0 g/dL (6.4-8.2) 4.6 g/dL (6.4-8.2) Albumin 0.9 g/dL (3.4-5.0) 1.0 g/dL (3.4-5.0) Albumin/Globulin Ratio 0.3 (1.0-1.7) 0.3 (1.0-1.7) Glucose (Fingerstick) 125 mg/dL (70-99) 161 mg/dL (70-99) Test 12/03/19 05:23 12/03/19 12:38 Glucose (Fingerstick) 155 mg/dL (70-99) 167 mg/dL (70-99) Microbiology 11/28/19 Urine Culture - Final, Complete 11/28/19 Blood Culture - Final, Complete NO GROWTH AFTER 5 DAYS 11/13/19 Gram Stain - Final, Complete 11/13/19 Aerobic Culture - Final, Complete 11/08/19 Gram Stain - Final, Complete 11/08/19 Aerobic and Anaerobic Culture - Final, Complete 11/06/19 Gram Stain Evaluation - Final, Complete 11/06/19 Respiratory Culture - Final, Complete 11/06/19 Antimicrobic Susceptibility - Final, Complete 10/18/19 Gram Stain - Final, Complete 10/18/19 Aerobic and Anaerobic Culture - Final, Complete 10/18/19 Antimicrobic Susceptibility - Final, Complete Medications Current Medications Sodium Chloride 1,000 ml @ 1,000 mls/hr Q1H IV Last administered on 07/04/19at 03:00; Start 07/04/19 at 03:00; Stop 07/04/19 at 03:59; Status DC Ondansetron HCl (Zofran) 4 mg 1X ONCE IVP Last administered on 07/04/19at 03:27; Start 07/04/19 at 03:00; Stop 07/04/19 at 03:01; Status DC Morphine Sulfate (Morphine Sulfate) 4 mg 1X ONCE IV ; Start 07/04/19 at 03:00; Stop 07/04/19 at 03:01; Status Cancel Ketorolac Tromethamine (Toradol 30mg Vial) 30 mg 1X ONCE IV Last administered on 07/04/19at 02:54; Start 07/04/19 at 03:00; Stop 07/04/19 at 03:01; Status DC Fentanyl Citrate (Fentanyl 2ml Vial) 25 mcg 1X ONCE IVP Last administered on 07/04/19at 03:23; Start 07/04/19 at 03:30; Stop 07/04/19 at 03:31; Status DC Fentanyl Citrate (Fentanyl 2ml Vial) 100 mcg STK-MED ONCE .ROUTE ; Start 07/04/19 at 03:18; Stop 07/04/19 at 03:18; Status DC Iohexol (Omnipaque 350 Mg/ml) 90 ml 1X ONCE IV Last administered on 07/04/19at 03:25; Start 07/04/19 at 03:30; Stop 07/04/19 at 03:31; Status DC Info (CONTRAST GIVEN -- Rx MONITORING) 1 each PRN DAILY PRN MC SEE COMMENTS; Start 07/04/19 at 03:30; Stop 07/06/19 at 03:29; Status DC Hydromorphone HCl (Dilaudid) 0.5 mg 1X ONCE IV Last administered on 07/04/19at 03:55; Start 07/04/19 at 04:30; Stop 07/04/19 at 04:32; Status DC Ondansetron HCl (Zofran) 4 mg PRN Q8HRS PRN IV NAUSEA/VOMITING 1ST CHOICE; Start 07/04/19 at 05:00; Stop 07/04/19 at 09:27; Status DC Morphine Sulfate (Morphine Sulfate) 2 mg PRN Q2HR PRN IV SEVERE PAIN 7-10 Last administered on 07/05/19at 12:26; Start 07/04/19 at 05:00; Stop 07/05/19 at 14:15; Status DC Sodium Chloride 1,000 ml @ 125 mls/hr Q8H IV Last administered on 07/04/19at 20:56; Start 07/04/19 at 05:00; Stop 07/05/19 at 04:59; Status DC Hydromorphone HCl (Dilaudid) 0.5 mg PRN Q3HRS PRN IV SEVERE PAIN 7-10 Last administered on 07/05/19at 10:06; Start 07/04/19 at 05:00; Stop 07/05/19 at 12:01; Status DC Piperacillin Sod/ Tazobactam Sod 4.5 gm/Sodium Chloride 100 ml @ 200 mls/hr 1X ONCE IV Last administered on 07/04/19at 05:44; Start 07/04/19 at 06:00; Stop 07/04/19 at 06:29; Status DC Ondansetron HCl (Zofran) 4 mg PRN Q4HRS PRN IV NAUSEA/VOMITING 1ST CHOICE Last administered on 11/30/19at 12:43; Start 07/04/19 at 09:30 Insulin Human Lispro (HumaLOG) 0-9 UNITS Q6HRS SQ Last administered on 12/02/19at 12:43; Start 07/04/19 at 09:30 Dextrose (Dextrose 50%-Water Syringe) 12.5 gm PRN Q15MIN PRN IV SEE COMMENTS; Start 07/04/19 at 09:30 Pantoprazole Sodium (PROTONIX VIAL for IV PUSH) 40 mg DAILYAC IVP Last administered on 12/03/19at 08:40; Start 07/04/19 at 11:30 Prochlorperazine Edisylate (Compazine) 10 mg PRN Q6HRS PRN IV NAUSEA/VOMITING, 2nd CHOICE Last administered on 11/28/19at 00:42; Start 07/04/19 at 17:45 Atenolol (Tenormin) 100 mg DAILY PO ; Start 07/05/19 at 09:00; Stop 07/04/19 at 20:08; Status DC Metoprolol Tartrate (Lopressor Vial) 2.5 mg Q6HRS IVP Last administered on 07/05/19at 05:51; Start 07/04/19 at 20:15; Stop 07/05/19 at 10:02; Status DC Metoprolol Tartrate (Lopressor Vial) 5 mg Q6HRS IVP Last administered on 07/14/19at 00:12; Start 07/05/19 at 10:15; Stop 07/16/19 at 08:48; Status DC Hydromorphone HCl (Dilaudid) 1 mg PRN Q3HRS PRN IV SEVERE PAIN 7-10 Last administered on 07/11/19at 05:13; Start 07/05/19 at 12:00; Stop 07/19/19 at 00:25; Status DC Lidocaine HCl (Buffered Lidocaine 1%) 3 ml STK-MED ONCE .ROUTE ; Start 07/05/19 at 12:55; Stop 07/05/19 at 12:56; Status DC Albumin Human 500 ml @ 125 mls/hr 1X ONCE IV Last administered on 07/05/19at 14:33; Start 07/05/19 at 14:30; Stop 07/05/19 at 18:32; Status DC Norepinephrine Bitartrate 8 mg/ Dextrose 258 ml @ 17.299 mls/ hr CONT PRN IV PER PROTOCOL Last administered on 08/02/19at 12:48; Start 07/05/19 at 15:30; Stop 08/05/19 at 09:19; Status DC Sodium Chloride 1,000 ml @ 125 mls/hr Q8H IV Last administered on 07/05/19at 21:04; Start 07/05/19 at 16:00; Stop 07/06/19 at 02:42; Status DC Albumin Human 500 ml @ 125 mls/hr PRN BID PRN IV After every 2L NSS & BP < 90mm Last administered on 10/18/19at 16:06; Start 07/05/19 at 16:00; Stop 10/21/19 at 09:30; Status DC Iohexol (Omnipaque 300 Mg/ml) 60 ml 1X ONCE IV Last administered on 07/05/19at 17:20; Start 07/05/19 at 17:00; Stop 07/05/19 at 17:01; Status DC Info (CONTRAST GIVEN -- Rx MONITORING) 1 each PRN DAILY PRN MC SEE COMMENTS; Start 07/05/19 at 17:00; Stop 07/07/19 at 16:59; Status DC Meropenem 1 gm/ Sodium Chloride 100 ml @ 200 mls/hr Q8HRS IV Last administered on 07/06/19at 05:45; Start 07/05/19 at 20:00; Stop 07/06/19 at 08:48; Status DC Furosemide (Lasix) 40 mg 1X ONCE IVP Last administered on 07/05/19at 22:12; Start 07/05/19 at 22:30; Stop 07/05/19 at 22:31; Status DC Calcium Chloride 1000 mg/Sodium Chloride 110 ml @ 220 mls/hr 1X ONCE IV Last administered on 07/05/19at 22:11; Start 07/05/19 at 22:30; Stop 07/05/19 at 22:59; Status DC Albuterol Sulfate (Ventolin Neb Soln) 2.5 mg 1X ONCE NEB Last administered on 07/06/19at 00:56; Start 07/05/19 at 22:30; Stop 07/05/19 at 22:31; Status DC Insulin Human Regular (HumuLIN R VIAL) 5 unit 1X ONCE IV Last administered on 07/05/19at 22:14; Start 07/05/19 at 22:30; Stop 07/05/19 at 22:31; Status DC Magnesium Sulfate 50 ml @ 25 mls/hr 1X ONCE IV Last administered on 07/06/19at 02:57; Start 07/06/19 at 03:00; Stop 07/06/19 at 04:59; Status DC Calcium Gluconate 1000 mg/Sodium Chloride 110 ml @ 220 mls/hr 1X ONCE IV Last administered on 07/06/19at 02:46; Start 07/06/19 at 03:00; Stop 07/06/19 at 03:29; Status DC Sodium Chloride 1,000 ml @ 200 mls/hr Q5H IV Last administered on 07/06/19at 02:46; Start 07/06/19 at 03:00; Stop 07/06/19 at 10:21; Status DC Calcium Gluconate 1000 mg/Sodium Chloride 110 ml @ 220 mls/hr 1X ONCE IV Last administered on 07/06/19at 03:21; Start 07/06/19 at 03:30; Stop 07/06/19 at 03:59; Status DC Sodium Bicarbonate 50 meq/Sodium Chloride 1,050 ml @ 75 mls/hr Q14H IV Last administered on 07/10/19at 21:10; Start 07/06/19 at 07:30; Stop 07/11/19 at 10:28; Status DC Calcium Gluconate 2000 mg/Sodium Chloride 120 ml @ 220 mls/hr 1X ONCE IV Last administered on 07/06/19at 09:05; Start 07/06/19 at 07:30; Stop 07/06/19 at 08:02; Status DC Lidocaine HCl (Xylocaine-Mpf 1% 2ml Vial) 2 ml STK-MED ONCE .ROUTE ; Start 07/06/19 at 08:47; Stop 07/06/19 at 08:47; Status DC Meropenem 500 mg/ Sodium Chloride 50 ml @ 100 mls/hr Q12HR IV Last administered on 07/11/19at 21:01; Start 07/06/19 at 18:00; Stop 07/12/19 at 07:58; Status DC Lidocaine HCl (Buffered Lidocaine 1%) 3 ml STK-MED ONCE .ROUTE ; Start 07/06/19 at 09:46; Stop 07/06/19 at 09:46; Status DC Lidocaine HCl (Buffered Lidocaine 1%) 6 ml 1X ONCE INJ Last administered on 07/06/19at 10:26; Start 07/06/19 at 10:15; Stop 07/06/19 at 10:16; Status DC Info (Tpn Per Pharmacy) 1 each PRN DAILY PRN MC SEE COMMENTS Last administered on 11/13/19at 08:31; Start 07/06/19 at 12:00; Stop 11/13/19 at 10:41; Status DC Sodium Chloride 1,000 ml @ 1,000 mls/hr Q1H PRN IV hypotension; Start 07/06/19 at 12:07; Stop 07/06/19 at 18:06; Status DC Diphenhydramine HCl (Benadryl) 25 mg 1X PRN PRN IV ITCHING; Start 07/06/19 at 12:15; Stop 07/07/19 at 12:14; Status DC Diphenhydramine HCl (Benadryl) 25 mg 1X PRN PRN IV ITCHING; Start 07/06/19 at 12:15; Stop 07/07/19 at 12:14; Status DC Sodium Chloride 1,000 ml @ 400 mls/hr Q2H30M PRN IV PATENCY; Start 07/06/19 at 12:07; Stop 07/07/19 at 00:06; Status DC Info (PHARMACY MONITORING -- do not chart) 1 each PRN DAILY PRN MC SEE COMMENTS; Start 07/06/19 at 12:15; Stop 07/08/19 at 08:13; Status DC Sodium Chloride 90 meq/Calcium Gluconate 10 meq/ Multivitamins 10 ml/Chromium/ Copper/Manganese/ Seleni/Zn 1 ml/ Total Parenteral Nutrition/Amino Acids/Dextrose/ Fat Emulsion Intravenous 55.005 ml @ 2.292 mls/hr TPN CONT IV ; Start 07/06/19 at 22:00; Stop 07/06/19 at 12:33; Status DC Info (Tpn Per Pharmacy) 1 each PRN DAILY PRN MC SEE COMMENTS; Start 07/06/19 at 12:30; Status UNV Sodium Chloride 90 meq/Calcium Gluconate 10 meq/ Multivitamins 10 ml/Chromium/ Copper/Manganese/ Seleni/Zn 0.5 ml/ Total Parenteral Nutrition/Amino Acids/Dextrose/ Fat Emulsion Intravenous 1,512 ml @ 63 mls/hr TPN CONT IV Last administered on 07/06/19at 22:06; Start 07/06/19 at 22:00; Stop 07/07/19 at 21:59; Status DC Calcium Carbonate/ Glycine (Tums) 500 mg PRN AFTMEALHC PRN PO INDIGESTION; Start 07/06/19 at 17:45; Stop 08/31/19 at 10:25; Status DC Calcium Gluconate (Calcium Gluconate) 2,000 mg 1X ONCE IVP Last administered on 07/07/19at 02:19; Start 07/07/19 at 02:15; Stop 07/07/19 at 02:16; Status DC Calcium Chloride 3000 mg/Sodium Chloride 1,030 ml @ 50 mls/hr [id number] IV Last administered on 07/09/19at 02:17; Start 07/07/19 at 08:00; Stop 07/09/19 at 15:23; Status DC Lorazepam (Ativan Inj) 1 mg PRN Q4HRS PRN IVP ANXIETY / AGITATION, 2nd choic Last administered on 08/05/19at 03:51; Start 07/07/19 at 09:00; Stop 08/05/19 at 09:19; Status DC Sodium Chloride 1,000 ml @ 1,000 mls/hr Q1H PRN IV hypotension; Start 07/07/19 at 08:56; Stop 07/07/19 at 14:55; Status DC Albumin Human 200 ml @ 200 mls/hr 1X PRN PRN IV Hypotension; Start 07/07/19 at 09:00; Stop 07/07/19 at 14:59; Status DC Diphenhydramine HCl (Benadryl) 25 mg 1X PRN PRN IV ITCHING; Start 07/07/19 at 09:00; Stop 07/08/19 at 08:59; Status DC Diphenhydramine HCl (Benadryl) 25 mg 1X PRN PRN IV ITCHING; Start 07/07/19 at 09:00; Stop 07/08/19 at 08:59; Status DC Sodium Chloride 1,000 ml @ 400 mls/hr Q2H30M PRN IV PATENCY; Start 07/07/19 at 08:56; Stop 07/07/19 at 20:55; Status DC Info (PHARMACY MONITORING -- do not chart) 1 each PRN DAILY PRN MC SEE COMMENTS; Start 07/07/19 at 09:00; Status UNV Info (PHARMACY MONITORING -- do not chart) 1 each PRN DAILY PRN MC SEE COMMENTS; Start 07/07/19 at 09:00; Stop 07/08/19 at 08:13; Status DC Digoxin (Lanoxin) 500 mcg 1X ONCE IV Last administered on 07/07/19at 10:04; Start 07/07/19 at 10:00; Stop 07/07/19 at 10:01; Status DC Digoxin (Lanoxin) 125 mcg 1X ONCE IV Last administered on 07/07/19at 17:10; Start 07/07/19 at 18:00; Stop 07/07/19 at 18:01; Status DC Magnesium Sulfate 100 ml @ 25 mls/hr 1X ONCE IV Last administered on 07/07/19at 12:48; Start 07/07/19 at 13:00; Stop 07/07/19 at 16:59; Status DC Sodium Chloride 90 meq/Magnesium Sulfate 10 meq/ Calcium Gluconate 20 meq/ Multivitamins 10 ml/Chromium/ Copper/Manganese/ Seleni/Zn 0.5 ml/ Total Parenteral Nutrition/Amino Acids/Dextrose/ Fat Emulsion Intravenous 1,512 ml @ 63 mls/hr TPN CONT IV Last administered on 07/07/19at 22:25; Start 07/07/19 at 22:00; Stop 07/08/19 at 21:59; Status DC Sodium Chloride 1,000 ml @ 1,000 mls/hr Q1H PRN IV hypotension; Start 07/08/19 at 08:05; Stop 07/08/19 at 14:04; Status DC Albumin Human 200 ml @ 200 mls/hr 1X ONCE IV Last administered on 07/08/19at 08:57; Start 07/08/19 at 08:15; Stop 07/08/19 at 09:14; Status DC Diphenhydramine HCl (Benadryl) 25 mg 1X PRN PRN IV ITCHING; Start 07/08/19 at 08:15; Stop 07/09/19 at 08:14; Status DC Diphenhydramine HCl (Benadryl) 25 mg 1X PRN PRN IV ITCHING; Start 07/08/19 at 08:15; Stop 07/09/19 at 08:14; Status DC Sodium Chloride 1,000 ml @ 400 mls/hr Q2H30M PRN IV PATENCY; Start 07/08/19 at 08:05; Stop 07/08/19 at 20:04; Status DC Info (PHARMACY MONITORING -- do not chart) 1 each PRN DAILY PRN MC SEE COMMENTS; Start 07/08/19 at 08:15; Stop 07/12/19 at 07:57; Status DC Sodium Chloride 90 meq/Potassium Chloride 15 meq/ Potassium Phosphate 10 mmol/ Magnesium Sulfate 10 meq/Calcium Gluconate 20 meq/ Multivitamins 10 ml/Chromium/ Copper/Manganese/ Seleni/Zn 0.5 ml/ Total Parenteral Nutrition/Amino Acids/Dextrose/ Fat Emulsion Intravenous 1,512 ml @ 63 mls/hr TPN CONT IV Last administered on 07/08/19at 21:01; Start 07/08/19 at 22:00; Stop 07/09/19 at 21:59; Status DC Potassium Chloride/Water 100 ml @ 100 mls/hr 1X ONCE IV Last administered on 07/08/19at 14:09; Start 07/08/19 at 14:00; Stop 07/08/19 at 14:59; Status DC Benzocaine (Hurricaine One) 1 spray 1X ONCE MM Last administered on 07/08/19at 16:38; Start 07/08/19 at 14:30; Stop 07/08/19 at 14:31; Status DC Lidocaine HCl (Glydo (Lidocaine) Jelly) 1 ramu 1X ONCE MM Last administered on 07/08/19at 16:38; Start 07/08/19 at 14:30; Stop 07/08/19 at 14:31; Status DC Linezolid/Dextrose 300 ml @ 300 mls/hr Q12HR IV Last administered on 07/14/19at 21:04; Start 07/08/19 at 20:00; Stop 07/15/19 at 07:50; Status DC Acetaminophen (Tylenol) 650 mg PRN Q6HRS PRN PO MILD PAIN / TEMP; Start 07/09/19 at 03:30; Stop 07/09/19 at 03:36; Status DC Acetaminophen (Tylenol) 650 mg PRN Q6HRS PRN PEG MILD PAIN / TEMP Last administered on 08/04/19at 19:56; Start 07/09/19 at 03:36; Stop 08/31/19 at 10:25; Status DC Sodium Chloride 1,000 ml @ 1,000 mls/hr Q1H PRN IV hypotension; Start 07/09/19 at 07:50; Stop 07/09/19 at 13:49; Status DC Albumin Human 200 ml @ 200 mls/hr 1X PRN PRN IV Hypotension; Start 07/09/19 at 08:00; Stop 07/09/19 at 13:59; Status DC Sodium Chloride (Normal Saline Flush) 10 ml 1X PRN PRN IV AP catheter pack; Start 07/09/19 at 08:00; Stop 07/10/19 at 07:59; Status DC Sodium Chloride (Normal Saline Flush) 10 ml 1X PRN PRN IV SERVICES CLERK catheter pack; Start 07/09/19 at 08:00; Stop 07/10/19 at 07:59; Status DC Sodium Chloride 1,000 ml @ 400 mls/hr Q2H30M PRN IV PATENCY; Start 07/09/19 at 07:50; Stop 07/09/19 at 19:49; Status DC Info (PHARMACY MONITORING -- do not chart) 1 each PRN DAILY PRN MC SEE COMMENTS; Start 07/09/19 at 08:00; Status UNV Info (PHARMACY MONITORING -- do not chart) 1 each PRN DAILY PRN MC SEE COMMENTS; Start 07/09/19 at 08:00; Stop 07/11/19 at 08:25; Status DC Sodium Chloride 90 meq/Potassium Chloride 15 meq/ Potassium Phosphate 10 mmol/ Magnesium Sulfate 10 meq/Calcium Gluconate 20 meq/ Multivitamins 10 ml/Chromium/ Copper/Manganese/ Seleni/Zn 0.5 ml/ Total Parenteral Nutrition/Amino Acids/Dextrose/ Fat Emulsion Intravenous 1,512 ml @ 63 mls/hr TPN CONT IV Last administered on 07/09/19at 20:57; Start 07/09/19 at 22:00; Stop 07/10/19 at 21:59; Status DC Sodium Chloride 90 meq/Potassium Chloride 15 meq/ Potassium Phosphate 15 mmol/ Magnesium Sulfate 10 meq/Calcium Gluconate 20 meq/ Multivitamins 10 ml/Chromium/ Copper/Manganese/ Seleni/Zn 0.5 ml/ Total Parenteral Nutrition/Amino Acids/Dextrose/ Fat Emulsion Intravenous 1,512 ml @ 63 mls/hr TPN CONT IV ; Start 07/10/19 at 22:00; Stop 07/10/19 at 14:16; Status DC Sodium Chloride 90 meq/Potassium Chloride 15 meq/ Potassium Phosphate 15 mmol/ Magnesium Sulfate 10 meq/Calcium Gluconate 20 meq/ Multivitamins 10 ml/Chromium/ Copper/Manganese/ Seleni/Zn 0.5 ml/ Total Parenteral Nutrition/Amino Acids/Dextrose/ Fat Emulsion Intravenous 1,200 ml @ 50 mls/hr TPN CONT IV ; Start 07/10/19 at 22:00; Stop 07/10/19 at 14:17; Status DC Sodium Chloride 90 meq/Potassium Chloride 15 meq/ Potassium Phosphate 10 mmol/ Magnesium Sulfate 10 meq/Calcium Gluconate 20 meq/ Multivitamins 10 ml/Chromium/ Copper/Manganese/ Seleni/Zn 0.5 ml/ Total Parenteral Nutrition/Amino Acids/Dextrose/ Fat Emulsion Intravenous 1,200 ml @ 50 mls/hr TPN CONT IV Last administered on 07/10/19at 23:29; Start 07/10/19 at 22:00; Stop 07/11/19 at 21:59; Status DC Sodium Chloride 1,000 ml @ 1,000 mls/hr Q1H PRN IV hypotension; Start 07/11/19 at 07:28; Stop 07/11/19 at 13:27; Status DC Albumin Human 200 ml @ 200 mls/hr 1X ONCE IV Last administered on 07/11/19at 08:51; Start 07/11/19 at 07:30; Stop 07/11/19 at 08:29; Status DC Diphenhydramine HCl (Benadryl) 25 mg 1X PRN PRN IV ITCHING; Start 07/11/19 at 07:30; Stop 07/12/19 at 07:29; Status DC Diphenhydramine HCl (Benadryl) 25 mg 1X PRN PRN IV ITCHING; Start 07/11/19 at 07:30; Stop 07/12/19 at 07:29; Status DC Sodium Chloride 1,000 ml @ 400 mls/hr Q2H30M PRN IV PATENCY; Start 07/11/19 at 07:28; Stop 07/11/19 at 19:27; Status DC Info (PHARMACY MONITORING -- do not chart) 1 each PRN DAILY PRN MC SEE COMMENTS; Start 07/11/19 at 07:30; Stop 07/22/19 at 13:01; Status DC Metronidazole 100 ml @ 100 mls/hr Q6HRS IV Last administered on 07/27/19at 06:26; Start 07/11/19 at 08:30; Stop 07/27/19 at 09:58; Status DC Micafungin Sodium 100 mg/Dextrose 100 ml @ 100 mls/hr Q24H IV Last administered on 08/18/19at 08:18; Start 07/11/19 at 09:00; Stop 08/18/19 at 20:58; Status DC Propofol 0 ml @ As Directed STK-MED ONCE IV ; Start 07/11/19 at 07:53; Stop 07/11/19 at 07:53; Status DC Etomidate (Amidate) 20 mg STK-MED ONCE IV ; Start 07/11/19 at 07:53; Stop 07/10 at 07:54; Status DC Midazolam HCl (Versed) 5 mg STK-MED ONCE .ROUTE ; Start 07/11/19 at 07:57; Stop 07/11/19 at 07:57; Status DC Fentanyl Citrate 30 ml @ 0 mls/hr CONT PRN IV SEE PROTOCOL Last administered on 08/05/19at 06:12; Start 07/11/19 at 08:15; Stop 08/05/19 at 09:19; Status DC Artificial Tears (Artificial Tears) 1 drop PRN Q1HR PRN OU DRY EYE, 1st choice; Start 07/11/19 at 08:15; Stop 08/17/19 at 05:31; Status DC Midazolam HCl 50 mg/Sodium Chloride 50 ml @ 0 mls/hr CONT PRN IV SEE PROTOCOL Last administered on 07/14/19at 22:39; Start 07/11/19 at 08:15; Stop 07/16/19 at 15:59; Status DC Etomidate (Amidate) 8 mg 1X ONCE IV Last administered on 07/11/19at 08:33; Start 07/11/19 at 08:30; Stop 07/11/19 at 08:31; Status DC Succinylcholine Chloride (Anectine) 120 mg 1X ONCE IV Last administered on 07/11/19at 08:34; Start 07/11/19 at 08:30; Stop 07/11/19 at 08:31; Status DC Midazolam HCl (Versed) 5 mg 1X ONCE IV ; Start 07/11/19 at 08:30; Stop 07/11/19 at 08:31; Status DC Potassium Chloride 15 meq/ Bicarbonate Dialysis Soln w/ out KCl 5,007.5 ml @ 1,000 mls/ hr Q5H1M IV Last administered on 07/12/19at 11:11; Start 07/11/19 at 12:00; Stop 07/12/19 at 11:15; Status DC Potassium Chloride 15 meq/ Bicarbonate Dialysis Soln w/ out KCl 5,007.5 ml @ 1,000 mls/ hr Q5H1M IV Last administered on 07/12/19at 11:12; Start 07/11/19 at 12:00; Stop 07/12/19 at 11:17; Status DC Potassium Chloride 15 meq/ Bicarbonate Dialysis Soln w/ out KCl 5,007.5 ml @ 1,000 mls/ hr Q5H1M IV Last administered on 07/12/19at 11:11; Start 07/11/19 at 12:00; Stop 07/12/19 at 11:19; Status DC Sodium Chloride 90 meq/Potassium Chloride 15 meq/ Potassium Phosphate 10 mmol/ Magnesium Sulfate 10 meq/Calcium Gluconate 20 meq/ Multivitamins 10 ml/Chromium/ Copper/Manganese/ Seleni/Zn 0.5 ml/ Total Parenteral Nutrition/Amino Acids/Dextrose/ Fat Emulsion Intravenous 1,400 ml @ 58.333 mls/ hr TPN CONT IV Last administered on 07/11/19at 21:42; Start 07/11/19 at 22:00; Stop 07/12/19 at 21:59; Status DC Heparin Sodium (Porcine) (Heparin Sodium) 5,000 unit Q8HRS SQ Last administered on 07/16/19at 05:55; Start 07/11/19 at 15:00; Stop 07/16/19 at 13:28; Status DC Meropenem 500 mg/ Sodium Chloride 50 ml @ 100 mls/hr Q6HRS IV Last administered on 07/13/19at 06:00; Start 07/12/19 at 09:00; Stop 07/13/19 at 07:29; Status DC Potassium Phosphate 20 mmol/ Sodium Chloride 106.6667 ml @ 51.667 m... 1X ONCE IV Last administered on 07/12/19at 11:22; Start 07/12/19 at 10:15; Stop 07/12/19 at 12:18; Status DC Acetaminophen (Tylenol Supp) 650 mg PRN Q6HRS PRN [place] MILD PAIN / TEMP > 100.3'F Last administered on 11/28/19at 15:43; Start 07/12/19 at 10:30 Potassium Chloride/Water 100 ml @ 100 mls/hr Q1H IV Last administered on 07/12/19at 12:12; Start 07/12/19 at 11:00; Stop 07/12/19 at 12:59; Status DC Potassium Chloride 20 meq/ Bicarbonate Dialysis Soln w/ out KCl 5,010 ml @ 1,000 mls/hr Q5H1M IV Last administered on 07/13/19at 08:48; Start 07/12/19 at 12:00; Stop 07/13/19 at 13:03; Status DC Potassium Chloride 20 meq/ Bicarbonate Dialysis Soln w/ out KCl 5,010 ml @ 1,000 mls/hr Q5H1M IV Last administered on 07/17/19at 14:52; Start 07/12/19 at 11:30; Stop 07/17/19 at 19:59; Status DC Potassium Chloride 20 meq/ Bicarbonate Dialysis Soln w/ out KCl 5,010 ml @ 1,000 mls/hr Q5H1M IV Last administered on 07/17/19at 14:53; Start 07/12/19 at 11:30; Stop 07/17/19 at 19:59; Status DC Sodium Chloride 90 meq/Potassium Chloride 15 meq/ Potassium Phosphate 15 mmol/ Magnesium Sulfate 10 meq/Calcium Gluconate 15 meq/ Multivitamins 10 ml/Chromium/ Copper/Manganese/ Seleni/Zn 0.5 ml/ Total Parenteral Nutrition/Amino Acids/Dextrose/ Fat Emulsion Intravenous 1,400 ml @ 58.333 mls/ hr TPN CONT IV Last administered on 07/12/19at 22:17; Start 07/12/19 at 22:00; Stop 07/13/19 at 21:59; Status DC Cefepime HCl (Maxipime) 2 gm Q12HR IVP Last administered on 07/26/19at 20:56; Start 07/13/19 at 09:00; Stop 07/27/19 at 09:58; Status DC Daptomycin 500 mg/ Sodium Chloride 50 ml @ 100 mls/hr Q48H IV Last administered on 07/29/19at 09:57; Start 07/13/19 at 08:30; Stop 07/29/19 at 10: 07; Status DC Lidocaine HCl (Buffered Lidocaine 1%) 3 ml 1X ONCE INJ Last administered on 07/13/19at 10:27; Start 07/13/19 at 10:30; Stop 07/13/19 at 10:31; Status DC Potassium Phosphate 20 mmol/ Sodium Chloride 106.6667 ml @ 51.667 m... 1X ONCE IV Last administered on 07/13/19at 12:51; Start 07/13/19 at 13:00; Stop 07/13/19 at 15:03; Status DC Sodium Chloride 90 meq/Potassium Chloride 15 meq/ Potassium Phosphate 18 mmol/ Magnesium Sulfate 8 meq/Calcium Gluconate 15 meq/ Multivitamins 10 ml/Chromium/ Copper/Manganese/ Seleni/Zn 0.5 ml/ Total Parenteral Nutrition/Amino Acids/Dextrose/ Fat Emulsion Intravenous 1,400 ml @ 58.333 mls/ hr TPN CONT IV Last administered on 07/13/19at 22:16; Start 07/13/19 at 22:00; Stop 07/14/19 at 21:59; Status DC Potassium Chloride 20 meq/ Bicarbonate Dialysis Soln w/ out KCl 5,010 ml @ 1,000 mls/hr Q5H1M IV Last administered on 07/17/19at 14:54; Start 07/13/19 at 16:00; Stop 07/17/19 at 19:59; Status DC Multi-Ingred Cream/Lotion/Oil/ Oint (Artificial Tears Eye Ointment) 1 ramu PRN Q1HR PRN OU DRY EYE, 2nd choice Last administered on 08/01/19at 08:19; Start 07/13/19 at 17:30; Stop 09/21/19 at 14:39; Status DC Sodium Chloride 90 meq/Potassium Chloride 15 meq/ Potassium Phosphate 18 mmol/ Magnesium Sulfate 8 meq/Calcium Gluconate 15 meq/ Multivitamins 10 ml/Chromium/ Copper/Manganese/ Seleni/Zn 0.5 ml/ Total Parenteral Nutrition/Amino Acids/Dextrose/ Fat Emulsion Intravenous 1,400 ml @ 58.333 mls/ hr TPN CONT IV Last administered on 07/14/19at 22:00; Start 07/14/19 at 22:00; Stop 07/15/19 at 21:59; Status DC Albumin Human 500 ml @ 125 mls/hr 1X ONCE IV ; Start 07/14/19 at 14:15; Stop 07/14/19 at 18:14; Status DC Sodium Chloride 90 meq/Potassium Chloride 15 meq/ Potassium Phosphate 18 mmol/ Magnesium Sulfate 8 meq/Calcium Gluconate 15 meq/ Multivitamins 10 ml/Chromium/ Copper/Manganese/ Seleni/Zn 0.5 ml/ Insulin Human Regular 10 unit/ Total Paren teral Nutrition/Amino Acids/Dextrose/ Fat Emulsion Intravenous 1,400 ml @ 58.333 mls/ hr TPN CONT IV Last administered on 07/15/19at 21:43; Start 07/15/19 at 22:00; Stop 07/16/19 at 21:59; Status DC Lidocaine HCl (Buffered Lidocaine 1%) 3 ml STK-MED ONCE .ROUTE ; Start 07/13/19 at 10:00; Stop 07/15/19 at 13:57; Status DC Midazolam HCl 100 mg/Sodium Chloride 100 ml @ 7 mls/hr CONT PRN IV SEE PROTOCOL Last administered on 07/27/19at 15:35; Start 07/16/19 at 16:00; Stop 09/21/19 at 14:38; Status DC Sodium Chloride 90 meq/Potassium Chloride 15 meq/ Potassium Phosphate 18 mmol/ Magnesium Sulfate 8 meq/Calcium Gluconate 15 meq/ Multivitamins 10 ml/Chromium/ Copper/Manganese/ Seleni/Zn 0.5 ml/ Insulin Human Regular 15 unit/ Total Parenteral Nutrition/Amino Acids/Dextrose/ Fat Emulsion Intravenous 1,400 ml @ 58.333 mls/ hr TPN CONT IV Last administered on 07/16/19at 20:34; Start 0 at 22:00; Stop 07/17/19 at 21:59; Status DC Info (Icu Electrolyte Protocol) 1 ea CONT PRN PRN MC PER PROTOCOL; Start 07/17/19 at 13:15 Sodium Chloride 90 meq/Potassium Chloride 15 meq/ Potassium Phosphate 18 mmol/ Magnesium Sulfate 8 meq/Calcium Gluconate 15 meq/ Multivitamins 10 ml/Chromium/ Copper/Manganese/ Seleni/Zn 0.5 ml/ Insulin Human Regular 15 unit/ Total Parenteral Nutrition/Amino Acids/Dextrose/ Fat Emulsion Intravenous 1,400 ml @ 58.333 mls/ hr TPN CONT IV Last administered on 07/17/19at 22:05; Start 07/17/19 at 22:00; Stop 07/18/19 at 21:59; Status DC Potassium Chloride 15 meq/ Bicarbonate Dialysis Soln w/ out KCl 5,007.5 ml @ 1,000 mls/ hr Q5H1M IV Last administered on 07/20/19at 18:14; Start 07/17/19 at 20:00; Stop 07/21/19 at 13:08; Status DC Potassium Chloride 15 meq/ Bicarbonate Dialysis Soln w/ out KCl 5,007.5 ml @ 1,000 mls/ hr Q5H1M IV Last administered on 07/20/19at 18:14; Start 07/17/19 at 20:00; Stop 07/21/19 at 13:08; Status DC Potassium Chloride 15 meq/ Bicarbonate Dialysis Soln w/ out KCl 5,007.5 ml @ 1,000 mls/ hr Q5H1M IV Last administered on 07/20/19at 18:14; Start 07/17/19 at 20:00; Stop 07/21/19 at 13:08; Status DC Iohexol (Omnipaque 240 Mg/ml) 30 ml 1X ONCE PO Last administered on 07/18/19at 11:30; Start 07/18/19 at 11:30; Stop 07/18/19 at 11:33; Status DC Info (CONTRAST GIVEN -- Rx MONITORING) 1 each PRN DAILY PRN MC SEE COMMENTS; Start 07/18/19 at 11:45; Stop 07/20/19 at 11:44; Status DC Sodium Chloride 90 meq/Potassium Chloride 15 meq/ Potassium Phosphate 18 mmol/ M agnesium Sulfate 8 meq/Calcium Gluconate 15 meq/ Multivitamins 10 ml/Chromium/ Copper/Manganese/ Seleni/Zn 0.5 ml/ Insulin Human Regular 15 unit/ Total Parenteral Nutrition/Amino Acids/Dextrose/ Fat Emulsion Intravenous 1,400 ml @ 58.333 mls/ hr TPN CONT IV Last administered on 07/18/19at 21:47; Start 07/18/19 at 22:00; Stop 07/19/19 at 21:59; Status DC Sodium Chloride 90 meq/Potassium Chloride 15 meq/ Potassium Phosphate 18 mmol/ Magnesium Sulfate 8 meq/Calcium Gluconate 15 meq/ Multivitamins 10 ml/Chromium/ Copper/Manganese/ Seleni/Zn 0.5 ml/ Insulin Human Regular 20 unit/ Total Parenteral Nutrition/Amino Acids/Dextrose/ Fat Emulsion Intravenous 1,400 ml @ 58.333 mls/ hr TPN CONT IV Last administered on 07/19/19at 21:36; Start 07/19/19 at 22:00; Stop 07/20/19 at 21:59; Status DC Alteplase, Recombinant (Cathflo For Central Catheter Clearance) 1 mg 1X ONCE INT CAT Last administered on 07/19/19at 20:03; Start 07/19/19 at 19:30; Stop 07/19/19 at 19:46; Status DC Alteplase, Recombinant (Cathflo For Central Catheter Clearance) 1 mg 1X ONCE INT CAT Last administered on 07/19/19at 22:05; Start 07/19/19 at 22:00; Stop 07/19/19 at 22:01; Status DC Sodium Chloride 90 meq/Potassium Chloride 15 meq/ Potassium Phosphate 18 mmol/ Magnesium Sulfate 8 meq/Calcium Gluconate 15 meq/ Multivitamins 10 ml/Chromium/ Copper/Manganese/ Seleni/Zn 0.5 ml/ Insulin Human Regular 20 unit/ Total Parenteral Nutrition/Amino Acids/Dextrose/ Fat Emulsion Intravenous 1,400 ml @ 58.333 mls/ hr TPN CONT IV Last administered on 07/20/19at 21:30; Start 07/20/19 at 22:00; Stop 07/21/19 at 21:59; Status DC Dexmedetomidine HCl 400 mcg/ Sodium Chloride 100 ml @ 0 mls/hr CONT PRN IV ANXIETY / AGITATION Last administered on 09/17/19at 12:57; Start 07/21/19 at 08:15; Stop 09/17/19 at 18:31; Status DC Sodium Chloride 500 ml @ 500 mls/hr 1X PRN PRN IV ELEVATED BP, SEE COMMENTS; Start 07/21/19 at 08:15; Stop 11/23/19 at 09:08; Status DC Atropine Sulfate (ATROPINE 0.5mg SYRINGE) 0.5 mg PRN Q5MIN PRN IV SEE COMMENTS; Start 07/21/19 at 08:15; Stop 11/21/19 at 09:45; Status DC Furosemide (Lasix) 20 mg 1X ONCE IVP Last administered on 07/21/19at 08:19; Start 07/21/19 at 08:15; Stop 07/21/19 at 08:16; Status DC Lidocaine HCl (Buffered Lidocaine 1%) 3 ml STK-MED ONCE .ROUTE ; Start 07/21/19 at 08:39; Stop 07/21/19 at 08:39; Status DC Lidocaine HCl (Buffered Lidocaine 1%) 6 ml 1X ONCE INJ Last administered on 07/21/19at 09:05; Start 07/21/19 at 09:00; Stop 07/21/19 at 09:06; Status DC Sodium Chloride 90 meq/Potassium Chloride 15 meq/ Potassium Phosphate 18 mmol/ Magnesium Sulfate 8 meq/Calcium Gluconate 15 meq/ Multivitamins 10 ml/Chromium/ Copper/Manganese/ Seleni/Zn 0.5 ml/ Insulin Human Regular 20 unit/ Total Parenteral Nutrition/Amino Acids/Dextrose/ Fat Emulsion Intravenous 1,400 ml @ 58.333 mls/ hr TPN CONT IV Last administered on 07/21/19at 22:45; Start 07/21/19 at 22:00; Stop 07/22/19 at 21:59; Status DC Sodium Chloride 1,000 ml @ 1,000 mls/hr Q1H PRN IV hypotension; Start 07/22/19 at 07:30; Stop 07/22/19 at 13:29; Status DC Albumin Human 200 ml @ 200 mls/hr 1X PRN PRN IV Hypotension Last administered on 07/22/19at 09:36; Start 07/22/19 at 07:30; Stop 07/22/19 at 13:29; Status DC Sodium Chloride (Normal Saline Flush) 10 ml 1X PRN PRN IV AP catheter pack; Start 07/22/19 at 07:30; Stop 07/22/19 at 21:29; Status DC Sodium Chloride (Normal Saline Flush) 10 ml 1X PRN PRN IV SERVICES CLERK catheter pack; Start 07/22/19 at 07:30; Stop 07/23/19 at 07:29; Status DC Sodium Chloride 1,000 ml @ 400 mls/hr Q2H30M PRN IV PATENCY; Start 07/22/19 at 07:30; Stop 07/22/19 at 19:29; Status DC Info (PHARMACY MONITORING -- do not chart) 1 each PRN DAILY PRN MC SEE COMMENTS; Start 07/22/19 at 07:30; Stop 07/22/19 at 13:02; Status DC Info (PHARMACY MONITORING -- do not chart) 1 each PRN DAILY PRN MC SEE COMMENTS; Start 07/22/19 at 07:30; Stop 07/24/19 at 12:45; Status DC Sodium Chloride 90 meq/Potassium Chloride 15 meq/ Potassium Phosphate 10 mmol/ Magnesium Sulfate 8 meq/Calcium Gluconate 15 meq/ Multivitamins 10 ml/Chromium/ Copper/Manganese/ Seleni/Zn 0.5 ml/ Insulin Human Regular 25 unit/ Total Parenteral Nutrition/Amino Acids/Dextrose/ Fat Emulsion Intravenous 1,400 ml @ 58.333 mls/ hr TPN CONT IV Last administered on 07/22/19at 22:19; Start 07/22/19 at 22:00; Stop 07/23/19 at 21:59; Status DC Heparin Sodium (Porcine) (Heparin Sodium) 5,000 unit Q12HR SQ Last administered on 08/14/19at 08:59; Start 07/22/19 at 21:00; Stop 08/14/19 at 10:05; Status DC Ondansetron HCl (Zofran) 4 mg PRN Q6HRS PRN IV NAUSEA/VOMITING; Start 07/25/19 at 07:00; Stop 07/26/19 at 06:59; Status DC Fentanyl Citrate (Fentanyl 2ml Vial) 25 mcg PRN Q5MIN PRN IV MILD PAIN 1-3; Start 07/25/19 at 07:00; Stop 07/26/19 at 06:59; Status DC Fentanyl Citrate (Fentanyl 2ml Vial) 50 mcg PRN Q5MIN PRN IV MODERATE TO SEVERE PAIN; Start 07/25/19 at 07:00; Stop 07/26/19 at 06:59; Status DC Ringer's Solution 1,000 ml @ 30 mls/hr Q24H IV ; Start 07/25/19 at 07:00; Stop 07/25/19 at 18:59; Status DC Lidocaine HCl (Xylocaine-Mpf 1% 2ml Vial) 2 ml PRN 1X PRN ID PRIOR TO IV START; Start 07/25/19 at 07:00; Stop 07/26/19 at 06:59; Status DC Prochlorperazine Edisylate (Compazine) 5 mg PACU PRN PRN IV NAUSEA, MRX1; Start 07/25/19 at 07:00; Stop 07/26/19 at 06:59; Status DC Sodium Chloride 1,000 ml @ 1,000 mls/hr Q1H PRN IV hypotension; Start 07/23/19 at 09:10; Stop 07/23/19 at 15:09; Status DC Albumin Human 200 ml @ 200 mls/hr 1X PRN PRN IV Hypotension Last administered on 07/23/19at 10:10; Start 07/23/19 at 09:15; Stop 07/23/19 at 15:14; Status DC Sodium Chloride 1,000 ml @ 400 mls/hr Q2H30M PRN IV PATENCY; Start 07/23/19 at 09:10; Stop 07/23/19 at 21:09; Status DC Info (PHARMACY MONITORING -- do not chart) 1 each PRN DAILY PRN MC SEE COMMENTS; Start 07/23/19 at 09:15; Stop 07/24/19 at 12:45; Status DC Info (PHARMACY MONITORING -- do not chart) 1 each PRN DAILY PRN MC SEE COMMENTS; Start 07/23/19 at 09:15; Stop 07/24/19 at 12:45; Status DC Sodium Chloride 90 meq/Potassium Chloride 15 meq/ Potassium Phosphate 10 mmol/ Magnesium Sulfate 8 meq/Calcium Gluconate 15 meq/ Multivitamins 10 ml/Chromium/ Copper/Manganese/ Seleni/Zn 0.5 ml/ Insulin Human Regular 25 unit/ Total Parenteral Nutrition/Amino Acids/Dextrose/ Fat Emulsion Intravenous 1,400 ml @ 58.333 mls/ hr TPN CONT IV Last administered on 07/23/19at 22:10; Start 07/23/19 at 22:00; Stop 07/24/19 at 21:59; Status DC Magnesium Sulfate 50 ml @ 25 mls/hr PRN DAILY PRN IV for Mag < 1.7 on am labs Last administered on 10/06/19at 10:57; Start 07/24/19 at 09:15 Sodium Chloride 90 meq/Potassium Chloride 15 meq/ Potassium Phosphate 10 mmol/ Magnesium Sulfate 8 meq/Calcium Gluconate 15 meq/ Multivitamins 10 ml/Chromium/ Copper/Manganese/ Seleni/Zn 0.5 ml/ Insulin Human Regular 25 unit/ Total Parenteral Nutrition/Amino Acids/Dextrose/ Fat Emulsion Intravenous 1,400 ml @ 58.333 mls/ hr TPN CONT IV Last administered on 07/24/19at 21:20; Start 07/24/19 at 22:00; Stop 07/25/19 at 21:59; Status DC Sodium Chloride 1,000 ml @ 1,000 mls/hr Q1H PRN IV hypotension; Start 07/24/19 at 12:23; Stop 07/24/19 at 18:22; Status DC Albumin Human 200 ml @ 200 mls/hr 1X ONCE IV Last administered on 07/24/19at 13:34; Start 07/24/19 at 12:30; Stop 07/24/19 at 13:29; Status DC Diphenhydramine HCl (Benadryl) 25 mg 1X PRN PRN IV ITCHING; Start 07/24/19 at 12:30; Stop 07/25/19 at 12:29; Status DC Diphenhydramine HCl (Benadryl) 25 mg 1X PRN PRN IV ITCHING; Start 07/24/19 at 12:30; Stop 07/25/19 at 12:29; Status DC Info (PHARMACY MONITORING -- do not chart) 1 each PRN DAILY PRN MC SEE COMMENTS; Start 07/24/19 at 12:30; Status Cancel Bupivacaine HCl/ Epinephrine Bitart (Sensorcain-Epi 0.5%-1:[id number] Mpf) 30 ml STK-MED ONCE .ROUTE Last administered on 07/25/19at 11:44; Start 07/25/19 at 11:00; Stop 07/25/19 at 11:01; Status DC Cellulose (Surgicel Fibrillar 1x2) 1 each STK-MED ONCE .ROUTE ; Start 07/25/19 at 11:00; Stop 07/25/19 at 11:01; Status DC Sodium Chloride 90 meq/Potassium Chloride 15 meq/ Potassium Phosphate 10 mmol/ Magnesium Sulfate 12 meq/Calcium Gluconate 15 meq/ Multivitamins 10 ml/Chromium/ Copper/Manganese/ Seleni/Zn 0.5 ml/ Insulin Human Regular 25 unit/ Total Parenteral Nutrition/Amino Acids/Dextrose/ Fat Emulsion Intravenous 1,400 ml @ 58.333 mls/ hr TPN CONT IV Last administered on 07/25/19at 22:24; Start 07/25/19 at 22:00; Stop 07/26/19 at 21:59; Status DC Propofol 20 ml @ As Directed STK-MED ONCE IV ; Start 07/25/19 at 11:07; Stop 07/25/19 at 11:07; Status DC Cellulose (Surgicel Hemostat 4x8) 1 each STK-MED ONCE .ROUTE Last administered on 07/25/19at 11:44; Start 07/25/19 at 11:55; Stop 07/25/19 at 11:56; Status DC Sevoflurane (Ultane) 60 ml STK-MED ONCE IH ; Start 07/25/19 at 12:46; Stop 07/25/19 at 12:46; Status DC Sodium Chloride 1,000 ml @ 1,000 mls/hr Q1H PRN IV hypotension; Start 07/25/19 at 13:51; Stop 07/25/19 at 19:50; Status DC Albumin Human 200 ml @ 200 mls/hr 1X PRN PRN IV Hypotension Last administered on 07/25/19at 14:51; Start 07/25/19 at 14:00; Stop 07/25/19 at 19:59; Status DC Diphenhydramine HCl (Benadryl) 25 mg 1X PRN PRN IV ITCHING; Start 07/25/19 at 14:00; Stop 07/26/19 at 13:59; Status DC Diphenhydramine HCl (Benadryl) 25 mg 1X PRN PRN IV ITCHING; Start 07/25/19 at 14:00; Stop 07/26/19 at 13:59; Status DC Sodium Chloride 1,000 ml @ 400 mls/hr Q2H30M PRN IV PATENCY; Start 07/25/19 at 13:51; Stop 07/26/19 at 01:50; Status DC Info (PHARMACY MONITORING -- do not chart) 1 each PRN DAILY PRN MC SEE COMMENTS; Start 07/25/19 at 14:00; Stop 07/28/19 at 08:16; Status DC Heparin Sodium (Porcine) (Hep Lock Adult) 500 unit STK-MED ONCE IVP ; Start 07/26/19 at 09:29; Stop 07/26/19 at 09:30; Status DC Sodium Chloride 1,000 ml @ 1,000 mls/hr Q1H PRN IV hypotension; Start 07/26/19 at 10:43; Stop 07/26/19 at 16:42; Status DC Sodium Chloride 1,000 ml @ 400 mls/hr Q2H30M PRN IV PATENCY; Start 07/26/19 at 10:43; Stop 07/26/19 at 22:42; Status DC Info (PHARMACY MONITORING -- do not chart) 1 each PRN DAILY PRN MC SEE COMMENTS; Start 07/26/19 at 10:45; Status UNV Info (PHARMACY MONITORING -- do not chart) 1 each PRN DAILY PRN MC SEE COMMENTS; Start 07/26/19 at 10:45; Status UNV Sodium Chloride 90 meq/Potassium Chloride 15 meq/ Magnesium Sulfate 12 meq/Calcium Gluconate 15 meq/ Multivitamins 10 ml/Chromium/ Copper/Manganese/ Seleni/Zn 0.5 ml/ Insulin Human Regular 25 unit/ Total Parenteral Nutrition/Amino Acids/Dextrose/ Fat Emulsion Intravenous 1,400 ml @ 58.333 mls/ hr TPN CONT IV Last administered on 07/26/19at 22:13; Start 07/26/19 at 22:00; Stop 07/27/19 at 21:59; Status DC Sodium Chloride 1,000 ml @ 1,000 mls/hr Q1H PRN IV hypotension; Start 07/27/19 at 07:50; Stop 07/27/19 at 13:49; Status DC Albumin Human 200 ml @ 200 mls/hr 1X ONCE IV ; Start 07/27/19 at 08:00; Stop 07/27/19 at 08:53; Status DC Diphenhydramine HCl (Benadryl) 25 mg 1X PRN PRN IV ITCHING; Start 07/27/19 at 08:00; Stop 07/28/19 at 07:59; Status DC Diphenhydramine HCl (Benadryl) 25 mg 1X PRN PRN IV ITCHING; Start 07/27/19 at 08:00; Stop 07/28/19 at 07:59; Status DC Info (PHARMACY MONITORING -- do not chart) 1 each PRN DAILY PRN MC SEE COMMENTS; Start 07/27/19 at 08:00; Stop 07/28/19 at 08:16; Status DC Albumin Human 50 ml @ 50 mls/hr 1X ONCE IV ; Start 07/27/19 at 08:53; Stop 07/27/19 at 08:56; Status DC Albumin Human 200 ml @ 50 mls/hr PRN 1X PRN IV HYPOTENSION Last administered on 08/02/19at 11:54; Start 07/27/19 at 09:00; Stop 09/08/19 at 11:14; Status DC Meropenem 500 mg/ Sodium Chloride 50 ml @ 100 mls/hr Q12H IV Last administered on 08/16/19at 10:45; Start 07/27/19 at 10:00; Stop 08/16/19 at 12:37; Status DC Sodium Chloride 90 meq/Magnesium Sulfate 12 meq/ Calcium Gluconate 15 meq/ Multivitamins 10 ml/Chromium/ Copper/Manganese/ Seleni/Zn 0.5 ml/ Insulin Human Regular 25 unit/ Total Parenteral Nutrition/Amino Acids/Dextrose/ Fat Emulsion Intravenous 1,400 ml @ 58.333 mls/ hr TPN CONT IV Last administered on 07/27/19at 21:41; Start 07/27/19 at 22:00; Stop 07/28/19 at 21:59; Status DC Sodium Chloride 1,000 ml @ 1,000 mls/hr Q1H PRN IV hypotension; Start 07/28/19 at 07:58; Stop 07/28/19 at 13:57; Status DC Albumin Human 200 ml @ 200 mls/hr 1X PRN PRN IV Hypotension Last administered on 07/28/19at 09:30; Start 07/28/19 at 08:00; Stop 07/28/19 at 13:59; Status DC Sodium Chloride 1,000 ml @ 400 mls/hr Q2H30M PRN IV PATENCY; Start 07/28/19 at 07:58; Stop 07/28/19 at 19:57; Status DC Info (PHARMACY MONITORING -- do not chart) 1 each PRN DAILY PRN MC SEE COMMENTS; Start 07/28/19 at 08:00; Status Cancel Info (PHARMACY MONITORING -- do not chart) 1 each PRN DAILY PRN MC SEE COMMENTS; Start 07/28/19 at 08:15; Status UNV Sodium Chloride 90 meq/Potassium Phosphate 5 mmol/ Magnesium Sulfate 12 meq/Calcium Gluconate 15 meq/ Multivitamins 10 ml/Chromium/ Copper/Manganese/ Seleni/Zn 0.5 ml/ Insulin Human Regular 30 unit/ Total Parenteral Nutrition/Amino Acids/Dextrose/ Fat Emulsion Intravenous 1,400 ml @ 58.333 mls/ hr TPN CONT IV Last administered on 07/28/19at 22:08; Start 07/28/19 at 22:00; Stop 07/29/19 at 21:59; Status DC Linezolid/Dextrose 300 ml @ 300 mls/hr Q12HR IV Last administered on 08/08/19at 20:40; Start 07/29/19 at 11:00; Stop 08/09/19 at 08:10; Status DC Sodium Chloride 90 meq/Potassium Phosphate 15 mmol/ Magnesium Sulfate 12 meq/Calcium Gluconate 15 meq/ Multivitamins 10 ml/Chromium/ Copper/Manganese/ Seleni/Zn 0.5 ml/ Insulin Human Regular 30 unit/ Total Parenteral Nutrition/Ami no Acids/Dextrose/ Fat Emulsion Intravenous 1,400 ml @ 58.333 mls/ hr TPN CONT IV Last administered on 07/29/19at 21:49; Start 07/29/19 at 22:00; Stop 07/30/19 at 21:59; Status DC Sodium Chloride 90 meq/Potassium Phosphate 15 mmol/ Magnesium Sulfate 12 meq/Calcium Gluconate 15 meq/ Multivitamins 10 ml/Chromium/ Copper/Manganese/ Seleni/Zn 0.5 ml/ Insulin Human Regular 40 unit/ Total Parenteral Nutrition/Amino Acids/Dextrose/ Fat Emulsion Intravenous 1,400 ml @ 58.333 mls/ hr TPN CONT IV Last administered on 07/30/19at 21:21; Start 07/30/19 at 22:00; Stop 07/31/19 at 21:59; Status DC Sodium Chloride 1,000 ml @ 1,000 mls/hr Q1H PRN IV hypotension; Start 07/30/19 at 13:26; Stop 07/30/19 at 19:25; Status DC Albumin Human 200 ml @ 200 mls/hr 1X PRN PRN IV Hypotension Last administered on 07/30/19at 15:00; Start 07/30/19 at 13:30; Stop 07/30/19 at 19:29; Status DC Sodium Chloride (Normal Saline Flush) 10 ml 1X PRN PRN IV AP catheter pack; Start 07/30/19 at 13:30; Stop 07/31/19 at 13:29; Status DC Sodium Chloride (Normal Saline Flush) 10 ml 1X PRN PRN IV SERVICES CLERK catheter pack; Start 07/30/19 at 13:30; Stop 07/31/19 at 13:29; Status DC Sodium Chloride 1,000 ml @ 400 mls/hr Q2H30M PRN IV PATENCY; Start 07/30/19 at 13:26; Stop 07/31/19 at 01:25; Status DC Info (PHARMACY MONITORING -- do not chart) 1 each PRN DAILY PRN MC SEE COMMENTS; Start 07/30/19 at 13:30; Stop 07/30/19 at 13:33; Status DC Info (PHARMACY MONITORING -- do not chart) 1 each PRN DAILY PRN MC SEE COMMENTS; Start 07/30/19 at 13:30; Stop 07/30/19 at 13:34; Status DC Sodium Chloride 90 meq/Potassium Phosphate 19 mmol/ Magnesium Sulfate 12 meq/Calcium Gluconate 15 meq/ Multivitamins 10 ml/Chromium/ Copper/Manganese/ Seleni/Zn 0.5 ml/ Insulin Human Regular 40 unit/ Total Parenteral Nutrition/Alfaro o Acids/Dextrose/ Fat Emulsion Intravenous 1,400 ml @ 58.333 mls/ hr TPN CONT IV Last administered on 07/31/19at 21:54; Start 07/31/19 at 22:00; Stop 08/01/19 at 21:59; Status DC Sodium Chloride 1,000 ml @ 1,000 mls/hr Q1H PRN IV hypotension; Start 08/01/19 at 09:35; Stop 08/01/19 at 15:34; Status DC Albumin Human 200 ml @ 200 mls/hr 1X PRN PRN IV Hypotension; Start 08/01/19 at 09:45; Stop 08/01/19 at 15:44; Status DC Diphenhydramine HCl (Benadryl) 25 mg 1X PRN PRN IV ITCHING; Start 08/01/19 at 09:45; Stop 08/02/19 at 09:44; Status DC Diphenhydramine HCl (Benadryl) 25 mg 1X PRN PRN IV ITCHING; Start 08/01/19 at 09:45; Stop 08/02/19 at 09:44; Status DC Sodium Chloride 1,000 ml @ 400 mls/hr Q2H30M PRN IV PATENCY; Start 08/01/19 at 09:35; Stop 08/01/19 at 21:34; Status DC Info (PHARMACY MONITORING -- do not chart) 1 each PRN DAILY PRN MC SEE COMMENTS; Start 08/01/19 at 09:45; Status Cancel Sodium Chloride 100 meq/Potassium Phosphate 19 mmol/ Magnesium Sulfate 12 meq/Calcium Gluconate 15 meq/ Multivitamins 10 ml/Chromium/ Copper/Manganese/ Seleni/Zn 0.5 ml/ Insulin Human Regular 40 unit/ Potassium Chloride 20 meq/ Total Parenteral Nutrition/Amino Acids/Dextrose/ Fat Emulsion Intravenous 1,400 ml @ 58.333 mls/ hr TPN CONT IV Last administered on 08/01/19at 22:02; Start 08/01/19 at 22:00; Stop 08/02/19 at 21:59; Status DC Furosemide (Lasix) 40 mg 1X ONCE IVP Last administered on 08/01/19at 14:39; Start 08/01/19 at 14:30; Stop 08/01/19 at 14:31; Status DC Metronidazole 100 ml @ 100 mls/hr Q8HRS IV Last administered on 08/09/19at 06:04; Start 08/02/19 at 10:00; Stop 08/09/19 at 08:10; Status DC Sodium Chloride 1,000 ml @ 1,000 mls/hr Q1H PRN IV hypotension; Start 08/02/19 at 08:00; Stop 08/02/19 at 13:59; Status DC Albumin Human 200 ml @ 200 mls/hr 1X PRN PRN IV Hypotension; Start 08/02/19 at 08:00; Stop 08/02/19 at 13:59; Status DC Sodium Chloride 1,000 ml @ 400 mls/hr Q2H30M PRN IV PATENCY; Start 08/02/19 at 08:00; Stop 08/02/19 at 19:59; Status DC Info (PHARMACY MONITORING -- do not chart) 1 each PRN DAILY PRN MC SEE COMMENTS; Start 08/02/19 at 11:30; Status UNV Info (PHARMACY MONITORING -- do not chart) 1 each PRN DAILY PRN MC SEE COMMENTS; Start 08/02/19 at 11:30; Stop 08/04/19 at 12:13; Status DC Sodium Chloride 100 meq/Potassium Phosphate 19 mmol/ Magnesium Sulfate 12 meq/Calcium Gluconate 15 meq/ Multivitamins 10 ml/Chromium/ Copper/Manganese/ Seleni/Zn 0.5 ml/ Insulin Human Regular 40 unit/ Potassium Chloride 20 meq/ Total Parenteral Nutrition/Amino Acids/Dextrose/ Fat Emulsion Intravenous 1,400 ml @ 58.333 mls/ hr TPN CONT IV Last administered on 08/02/19at 21:52; Start 08/02/19 at 22:00; Stop 08/03/19 at 21:59; Status DC Sodium Chloride (Normal Saline Flush) 10 ml QSHIFT PRN IV AFTER MEDS AND BLOOD DRAWS; Start 08/02/19 at 15:00; Stop 08/30/19 at 11:27; Status DC Sodium Chloride (Normal Saline Flush) 10 ml PRN Q5MIN PRN IV AFTER MEDS AND BLOOD DRAWS; Start 08/02/19 at 15:00; Stop 11/19/19 at 10:12; Status DC Sodium Chloride (Normal Saline Flush) 20 ml PRN Q5MIN PRN IV AFTER MEDS AND BLOOD DRAWS; Start 08/02/19 at 15:00 Sodium Chloride 100 meq/Potassium Phosphate 19 mmol/ Magnesium Sulfate 12 meq/Calcium Gluconate 15 meq/ Multivitamins 10 ml/Chromium/ Copper/Manganese/ Seleni/Zn 0.5 ml/ Insulin Human Regular 40 unit/ Potassium Chloride 20 meq/ Total Parenteral Nutrition/Amino Acids/Dextrose/ Fat Emulsion Intravenous 1,400 ml @ 58.333 mls/ hr TPN CONT IV Last administered on 08/03/19at 21:20; Start 08/03/19 at 22:00; Stop 08/04/19 at 21:59; Status DC Lidocaine HCl (Buffered Lidocaine 1%) 3 ml STK-MED ONCE .ROUTE ; Start 08/03/19 at 13:16; Stop 08/03/19 at 13:16; Status DC Lidocaine HCl (Buffered Lidocaine 1%) 6 ml 1X ONCE INJ Last administered on 08/03/19at 13:45; Start 08/03/19 at 13:30; Stop 08/03/19 at 13:31; Status DC Albumin Human 100 ml @ 100 mls/hr 1X ONCE IV Last administered on 08/03/19at 15:41; Start 08/03/19 at 15:00; Stop 08/03/19 at 15:59; Status DC Albumin Human 50 ml @ 50 mls/hr 1X ONCE IV Last administered on 08/03/19at 15:00; Start 08/03/19 at 15:00; Stop 08/03/19 at 15:59; Status DC Info (PHARMACY MONITORING -- do not chart) 1 each PRN DAILY PRN MC SEE COMMENTS; Start 08/04/19 at 11:30; Status Cancel Info (PHARMACY MONITORING -- do not chart) 1 each PRN DAILY PRN MC SEE COMMENTS; Start 08/04/19 at 11:30; Status UNV Sodium Chloride 100 meq/Potassium Phosphate 10 mmol/ Magnesium Sulfate 12 meq/Calcium Gluconate 15 meq/ Multivitamins 10 ml/Chromium/ Copper/Manganese/ Seleni/Zn 0.5 ml/ Insulin Human Regular 35 unit/ Potassium Chloride 20 meq/ Total Parenteral Nutrition/Amino Acids/Dextrose/ Fat Emulsion Intravenous 1,400 ml @ 58.333 mls/ hr TPN CONT IV Last administered on 08/04/19at 22:10; Start 08/04/19 at 22:00; Stop 08/05/19 at 21:59; Status DC Sodium Chloride 100 meq/Potassium Phosphate 5 mmol/ Magnesium Sulfate 12 meq/Calcium Gluconate 15 meq/ Multivitamins 10 ml/Chromium/ Copper/Manganese/ Seleni/Zn 0.5 ml/ Insulin Human Regular 35 unit/ Potassium Chloride 20 meq/ Total Parenteral Nutrition/Amino Acids/Dextrose/ Fat Emulsion Intravenous 1,400 ml @ 58.333 mls/ hr TPN CONT IV Last administered on 08/05/19at 22:59; Start 08/05/19 at 22:00; Stop 08/06/19 at 21:59; Status DC Sodium Chloride 1,000 ml @ 1,000 mls/hr Q1H PRN IV hypotension; Start 08/06/19 at 08:27; Stop 08/06/19 at 14:26; Status DC Albumin Human 200 ml @ 200 mls/hr 1X PRN PRN IV Hypotension Last administered on 08/06/19at 09:18; Start 08/06/19 at 08:30; Stop 08/06/19 at 14:29; Status DC Sodium Chloride 1,000 ml @ 400 mls/hr Q2H30M PRN IV PATENCY; Start 08/06/19 at 08:27; Stop 08/06/19 at 20:26; Status DC Info (PHARMACY MONITORING -- do not chart) 1 each PRN DAILY PRN MC SEE COMMENTS; Start 08/06/19 at 08:30; Status Cancel Info (PHARMACY MONITORING -- do not chart) 1 each PRN DAILY PRN MC SEE COMMENTS; Start 08/06/19 at 08:30; Stop 08/14/19 at 13:10; Status DC Sodium Chloride 100 meq/Potassium Chloride 40 meq/ Magnesium Sulfate 15 meq/Calcium Gluconate 15 meq/ Multivitamins 10 ml/Chromium/ Copper/Manganese/ Seleni/Zn 0.5 ml/ Insulin Human Regular 35 unit/ Total Parenteral Nutrit ion/Amino Acids/Dextrose/ Fat Emulsion Intravenous 1,400 ml @ 58.333 mls/ hr TPN CONT IV Last administered on 08/06/19at 22:00; Start 08/06/19 at 22:00; Stop 08/07/19 at 21:59; Status DC Potassium Chloride/Water 100 ml @ 100 mls/hr 1X ONCE IV Last administered on 08/06/19at 17:28; Start 08/06/19 at 14:45; Stop 08/06/19 at 15:44; Status DC Sodium Chloride 100 meq/Potassium Chloride 40 meq/ Magnesium Sulfate 15 meq/Calcium Gluconate 15 meq/ Multivitamins 10 ml/Chromium/ Copper/Manganese/ Seleni/Zn 0.5 ml/ Insulin Human Regular 35 unit/ Total Parenteral Nutrition/Amino Acids/Dextrose/ Fat Emulsion Intravenous 1,400 ml @ 58.333 mls/ hr TPN CONT IV Last administered on 08/07/19at 22:46; Start 08/07/19 at 22:00; Stop 08/08/19 at 21:59; Status DC Sodium Chloride 100 meq/Potassium Chloride 40 meq/ Magnesium Sulfate 20 meq/Calcium Gluconate 15 meq/ Multivitamins 10 ml/Chromium/ Copper/Manganese/ Seleni/Zn 0.5 ml/ Insulin Human Regular 35 unit/ Total Parenteral Nutrition/Amino Acids/Dextrose/ Fat Emulsion Intravenous 1,400 ml @ 58.333 mls/ hr TPN CONT IV Last administered on 08/08/19at 22:31; Start 08/08/19 at 22:00; Stop 08/09/19 at 21:59; Status DC Fentanyl Citrate (Fentanyl 2ml Vial) 50 mcg PRN Q2HR PRN IVP PAIN Last administered on 08/15/19at 13:32; Start 08/08/19 at 21:00; Stop 08/16/19 at 12:53; Status DC Fentanyl Citrate (Fentanyl 2ml Vial) 25 mcg PRN Q2HR PRN IVP PAIN; Start 08/08/19 at 21:00; Stop 08/16/19 at 12:54; Status DC Enoxaparin Sodium (Lovenox 100mg Syringe) 100 mg Q12HR SQ ; Start 08/09/19 at 21:00; Status UNV Amino Acids/ Glycerin/ Electrolytes 1,000 ml @ 75 mls/hr [id number] IV ; Start 08/08/19 at 21:15; Status UNV Sodium Chloride 1,000 ml @ 1,000 mls/hr Q1H PRN IV hypotension; Start 08/09/19 at 07:56; Stop 08/09/19 at 13:55; Status DC Albumin Human 200 ml @ 200 mls/hr 1X PRN PRN IV Hypotension Last administered on 08/09/19at 08:40; Start 08/09/19 at 08:00; Stop 08/09/19 at 13:59; Status DC Sodium Chloride 1,000 ml @ 400 mls/hr Q2H30M PRN IV PATENCY; Start 08/09/19 at 07:56; Stop 08/09/19 at 19:55; Status DC Info (PHARMACY MONITORING -- do not chart) 1 each PRN DAILY PRN MC SEE COMMENTS; Start 08/09/19 at 08:00; Status UNV Info (PHARMACY MONITORING -- do not chart) 1 each PRN DAILY PRN MC SEE COMMENTS; Start 08/09/19 at 08:00; Status UNV Daptomycin 430 mg/ Sodium Chloride 50 ml @ 100 mls/hr Q24H IV Last administered on 08/09/19at 12:35; Start 08/09/19 at 09:00; Stop 08/09/19 at 12:49; Status DC Sodium Chloride 100 meq/Potassium Chloride 40 meq/ Magnesium Sulfate 20 meq/Calcium Gluconate 15 meq/ Multivitamins 10 ml/Chromium/ Copper/Manganese/ Seleni/Zn 0.5 ml/ Insulin Human Regular 35 unit/ Total Parenteral Nutrition/Amino Acids/Dextrose/ Fat Emulsion Intravenous 1,400 ml @ 58.333 mls/ hr TPN CONT IV Last administered on 08/09/19at 21:26; Start 08/09/19 at 22:00; Stop 08/10/19 at 21:59; Status DC Daptomycin 430 mg/ Sodium Chloride 50 ml @ 100 mls/hr Q48H IV ; Start 08/11/19 at 09:00; Stop 08/10/19 at 11:55; Status DC Sodium Chloride 100 meq/Potassium Chloride 40 meq/ Magnesium Sulfate 20 meq/Calcium Gluconate 15 meq/ Multivitamins 10 ml/Chromium/ Copper/Manganese/ Seleni/Zn 0.5 ml/ Insulin Human Regular 35 unit/ Total Parenteral Nutrition/Amino Acids/Dextrose/ Fat Emulsion Intravenous 1,400 ml @ 58.333 mls/ hr TPN CONT IV Last administered on 08/10/19at 22:27; Start 08/10/19 at 22:00; Stop 08/11/19 at 21:59; Status DC Daptomycin 430 mg/ Sodium Chloride 50 ml @ 100 mls/hr Q24H IV Last administered on 08/12/19at 15:07; Start 08/10/19 at 13:00; Stop 08/13/19 at 13:15; Status DC Sodium Chloride 100 meq/Potassium Chloride 40 meq/ Magnesium Sulfate 20 meq/Calcium Gluconate 10 meq/ Multivitamins 10 ml/Chromium/ Copper/Manganese/ Seleni/Zn 0.5 ml/ Insulin Human Regular 35 unit/ Total Parenteral Nutrition/Amino Acids/Dextrose/ Fat Emulsion Intravenous 1,400 ml @ 58.333 mls/ hr TPN CONT IV Last administered on 08/12/19at 00:06; Start 08/11/19 at 22:00; Stop 08/12/19 at 21:59; Status DC Alteplase, Recombinant (Cathflo For Central Catheter Clearance) 1 mg 1X ONCE INT CAT Last administered on 08/12/19at 11:44; Start 08/12/19 at 10:45; Stop 08/12/19 at 10:46; Status DC Ondansetron HCl (Zofran) 4 mg PRN Q6HRS PRN IV NAUSEA/VOMITING; Start 08/15/19 at 07:00; Stop 08/16/19 at 06:59; Status DC Fentanyl Citrate (Fentanyl 2ml Vial) 25 mcg PRN Q5MIN PRN IV MILD PAIN 1-3; Start 08/15/19 at 07:00; Stop 08/16/19 at 06:59; Status DC Fentanyl Citrate (Fentanyl 2ml Vial) 50 mcg PRN Q5MIN PRN IV MODERATE TO SEVERE PAIN Last administered on 08/15/19at 10:17; Start 08/15/19 at 07:00; Stop 08/16/19 at 06:59; Status DC Ringer's Solution 1,000 ml @ 30 mls/hr Q24H IV ; Start 08/15/19 at 07:00; Stop 08/15/19 at 18:59; Status DC Lidocaine HCl (Xylocaine-Mpf 1% 2ml Vial) 2 ml PRN 1X PRN ID PRIOR TO IV START; Start 08/15/19 at 07:00; Stop 08/16/19 at 06:59; Status DC Prochlorperazine Edisylate (Compazine) 5 mg PACU PRN PRN IV NAUSEA, MRX1; Start 08/15/19 at 07:00; Stop 08/16/19 at 06:59; Status DC Sodium Acetate 50 meq/Potassium Acetate 55 meq/ Magnesium Sulfate 20 meq/Calcium Gluconate 10 meq/ Multivitamins 10 ml/Chromium/ Copper/Manganese/ Seleni/Zn 0.5 ml/ Insulin Human Regular 35 unit/ Total Parenteral Nutrition/Amino Aci ds/Dextrose/ Fat Emulsion Intravenous 1,400 ml @ 58.333 mls/ hr TPN CONT IV ; Start 08/12/19 at 22:00; Stop 08/12/19 at 14:15; Status DC Sodium Acetate 50 meq/Potassium Acetate 55 meq/ Magnesium Sulfate 20 meq/Calcium Gluconate 10 meq/ Multivitamins 10 ml/Chromium/ Copper/Manganese/ Seleni/Zn 0.5 ml/ Insulin Human Regular 35 unit/ Total Parenteral Nutrition/Amino Acids/Dextrose/ Fat Emulsion Intravenous 1,800 ml @ 75 mls/hr TPN CONT IV Last administered on 08/12/19at 22:38; Start 08/12/19 at 22:00; Stop 08/13/19 at 21:59; Status DC Sodium Chloride 1,000 ml @ 1,000 mls/hr Q1H PRN IV hypotension; Start 08/12/19 at 15:31; Stop 08/12/19 at 21:30; Status DC Diphenhydramine HCl (Benadryl) 25 mg 1X PRN PRN IV ITCHING; Start 08/12/19 at 15:45; Stop 08/13/19 at 15:44; Status DC Diphenhydramine HCl (Benadryl) 25 mg 1X PRN PRN IV ITCHING; Start 08/12/19 at 15:45; Stop 08/13/19 at 15:44; Status DC Sodium Chloride 1,000 ml @ 400 mls/hr Q2H30M PRN IV PATENCY; Start 08/12/19 at 15:31; Stop 08/13/19 at 03:30; Status DC Info (PHARMACY MONITORING -- do not chart) 1 each PRN DAILY PRN MC SEE COMMENTS; Start 08/12/19 at 15:45; Stop 09/13/19 at 14:14; Status DC Sodium Acetate 50 meq/Potassium Acetate 55 meq/ Magnesium Sulfate 20 meq/Calcium Gluconate 10 meq/ Multivitamins 10 ml/Chromium/ Copper/Manganese/ Seleni/Zn 0.5 ml/ Insulin Human Regular 35 unit/ Total Parenteral Nutrition/Amino Acid s/Dextrose/ Fat Emulsion Intravenous 1,800 ml @ 75 mls/hr TPN CONT IV Last administered on 08/13/19at 22:03; Start 08/13/19 at 22:00; Stop 08/14/19 at 21:59; Status DC Daptomycin 430 mg/ Sodium Chloride 50 ml @ 100 mls/hr Q24H IV Last administered on 08/18/19at 13:00; Start 08/13/19 at 13:00; Stop 08/18/19 at 20:58; Status DC Heparin Sodium (Porcine) 1000 unit/Sodium Chloride 1,001 ml @ 1,001 mls/hr 1X ONCE IRR ; Start 08/15/19 at 06:00; Stop 08/15/19 at 06:59; Status DC Potassium Acetate 55 meq/Magnesium Sulfate 20 meq/ Calcium Gluconate 10 meq/ Multivitamins 10 ml/Chromium/ Copper/Manganese/ Seleni/Zn 0.5 ml/ Insulin Human Regular 35 unit/ Total Parenteral Nutrition/Amino Acids/Dextrose/ Fat Emulsion Intravenous 1,920 ml @ 80 mls/hr TPN CONT IV Last administered on 08/14/19at 22:10; Start 08/14/19 at 22:00; Stop 08/15/19 at 21:59; Status DC Dexamethasone Sodium Phosphate (Decadron) 4 mg STK-MED ONCE .ROUTE ; Start 08/15/19 at 10:56; Stop 08/15/19 at 10:57; Status DC Ondansetron HCl (Zofran) 4 mg STK-MED ONCE .ROUTE ; Start 08/15/19 at 10:56; Stop 08/15/19 at 10:57; Status DC Rocuronium [place] (Zemuron) 50 mg STK-MED ONCE .ROUTE ; Start 08/15/19 at 10:56; Stop 08/15/19 at 10:57; Status DC Fentanyl Citrate (Fentanyl 2ml Vial) 100 mcg STK-MED ONCE .ROUTE ; Start 08/15/19 at 10:56; Stop 08/15/19 at 10:57; Status DC Bupivacaine HCl/ Epinephrine Bitart (Sensorcain-Epi 0.5%-1:[id number] Mpf) 30 ml STK-MED ONCE .ROUTE Last administered on 08/15/19at 12:01; Start 08/15/19 at 10:58; Stop 08/15/19 at 10:58; Status DC Cellulose (Surgicel Hemostat 2x14) 1 each STK-MED ONCE .ROUTE ; Start 08/15/19 at 10:58; Stop 08/15/19 at 10:59; Status DC Iohexol (Omnipaque 300 Mg/ml) 50 ml STK-MED ONCE .ROUTE ; Start 08/15/19 at 10:58; Stop 08/15/19 at 10:59; Status DC Cellulose (Surgicel Hemostat 4x8) 1 each STK-MED ONCE .ROUTE ; Start 08/15/19 at 10:58; Stop 08/15/19 at 10:59; Status DC Bisacodyl (Dulcolax Supp) 10 mg STK-MED ONCE .ROUTE ; Start 08/15/19 at 10:59; Stop 08/15/19 at 10:59; Status DC Heparin Sodium (Porcine) 1000 unit/Sodium Chloride 1,001 ml @ 1,001 mls/hr 1X ONCE IRR ; Start 08/15/19 at 12:00; Stop 08/15/19 at 12:59; Status DC Propofol 20 ml @ As Directed STK-MED ONCE IV ; Start 08/15/19 at 11:05; Stop 08/15/19 at 11:05; Status DC Sevoflurane (Ultane) 90 ml STK-MED ONCE IH ; Start 08/15/19 at 11:05; Stop 08/15/19 at 11:05; Status DC Sevoflurane (Ultane) 60 ml STK-MED ONCE IH ; Start 08/15/19 at 12:26; Stop 08/15/19 at 12:27; Status DC Propofol 20 ml @ As Directed STK-MED ONCE IV ; Start 08/15/19 at 12:26; Stop 08/15/19 at 12:27; Status DC Phenylephrine HCl (PHENYLEPHRINE in 0.9% NACL PF) 1 mg STK-MED ONCE IV ; Start 08/15/19 at 12:34; Stop 08/15/19 at 12:34; Status DC Heparin Sodium (Porcine) (Heparin Sodium) 5,000 unit Q12HR SQ Last administered on 08/24/19at 20:57; Start 08/15/19 at 21:00; Stop 08/25/19 at 09:59; Status DC Sodium Chloride (Normal Saline Flush) 3 ml QSHIFT PRN IV AFTER MEDS AND BLOOD DRAWS; Start 08/15/19 at 13:45; Status Cancel Naloxone HCl (Narcan) 0.4 mg PRN Q2MIN PRN IV SEE INSTRUCTIONS Last administered on 09/24/19at 15:15; Start 08/15/19 at 13:45; Stop 10/19/19 at 16:00; Status DC Sodium Chloride 1,000 ml @ 25 mls/hr Q24H IV Last administered on 09/13/19at 13:37; Start 08/15/19 at 13:37; Stop 09/16/19 at 13:09; Status DC Naloxone HCl (Narcan) 0.4 mg PRN Q2MIN PRN IV SEE INSTRUCTIONS; Start 08/15/19 at 14:30; Status UNV Sodium Chloride 1,000 ml @ 25 mls/hr Q24H IV ; Start 08/15/19 at 14:30; Status UNV Hydromorphone HCl 30 ml @ 0 mls/hr CONT PRN PRN IV PER PROTOCOL Last adm inistered on 08/20/19at 16:08; Start 08/15/19 at 14:30; Stop 08/22/19 at 08:55; Status DC Potassium Acetate 55 meq/Magnesium Sulfate 20 meq/ Calcium Gluconate 10 meq/ Multivitamins 10 ml/Chromium/ Copper/Manganese/ Seleni/Zn 0.5 ml/ Insulin Human Regular 35 unit/ Total Parenteral Nutrition/Amino Acids/Dextrose/ Fat Emulsion Intravenous 1,920 ml @ 80 mls/hr TPN CONT IV Last administered on 08/15/19at 22:01; Start 08/15/19 at 22:00; Stop 08/16/19 at 21:59; Status DC Bumetanide (Bumex) 2 mg [id number] IV Last administered on 08/19/19at 13:50; Start 08/16/19 at 14:00; Stop 08/20/19 at 14:10; Status DC Meropenem 1 gm/ Sodium Chloride 100 ml @ 200 mls/hr Q8HRS IV Last administered on 09/09/19at 05:53; Start 08/16/19 at 14:00; Stop 09/09/19 at 09:31; Status DC Potassium Acetate 55 meq/Magnesium Sulfate 20 meq/ Calcium Gluconate 10 meq/ Multivitamins 10 ml/Chromium/ Copper/Manganese/ Seleni/Zn 0.5 ml/ Insulin Human Regular 35 unit/ Total Parenteral Nutrition/Amino Acids/Dextrose/ Fat Emulsion Intravenous 1,920 ml @ 80 mls/hr TPN CONT IV Last administered on 08/16/19at 22:02; Start 08/16/19 at 22:00; Stop 08/17/19 at 21:59; Status DC Hydromorphone HCl (Dilaudid Standard BOAT TESTER) 12 mg STK-MED ONCE IV ; Start 08/15/19 at 14:35; Stop 08/16/19 at 13:53; Status DC Artificial Tears (Artificial Tears) 1 drop PRN Q15MIN PRN OU DRY EYE Last administered on 10/11/19at 21:17; Start 08/17/19 at 05:30 Hydromorphone HCl (Dilaudid Standard BOAT TESTER) 12 mg STK-MED ONCE IV ; Start 08/16/19 at 12:05; Stop 08/17/19 at 09:15; Status DC Potassium Acetate 65 meq/Magnesium Sulfate 20 meq/ Calcium Gluconate 10 meq/ Multivitamins 10 ml/Chromium/ Copper/Manganese/ Seleni/Zn 0.5 ml/ Insulin Human Regular 30 unit/ Total Parenteral Nutrition/Amino Acids/Dextrose/ Fat Emulsion Intravenous 1,920 ml @ 80 mls/hr TPN CONT IV Last administered on 08/17/19at 22:22; Start 08/17/19 at 22:00; Stop 08/18/19 at 21:59; Status DC Cyclobenzaprine HCl (Flexeril) 10 mg PRN Q6HRS PRN PO [employer] Last administered on 12/02/19at 00:29; Start 08/18/19 at 10:45 Potassium Acetate 55 meq/Magnesium Sulfate 20 meq/ Calcium Gluconate 10 meq/ Multivitamins 10 ml/Chromium/ Copper/Manganese/ Seleni/Zn 0.5 ml/ Insulin Human Regular 30 unit/ Total Parenteral Nutrition/Amino Acids/Dextrose/ Fat Emulsion Intravenous 1,920 ml @ 80 mls/hr TPN CONT IV Last administered on 08/19/19at 01:00; Start 08/18/19 at 22:00; Stop 08/19/19 at 21:59; Status DC Magnesium Sulfate 50 ml @ 25 mls/hr 1X ONCE IV Last administered on 08/18/19at 17:18; Start 08/18/19 at 12:45; Stop 08/18/19 at 14:44; Status DC Potassium Chloride/Water 100 ml @ 100 mls/hr 1X ONCE IV Last administered on 08/19/19at 11:27; Start 08/19/19 at 12:00; Stop 08/19/19 at 12:59; Status DC Hydromorphone HCl (Dilaudid Standard BOAT TESTER) 12 mg STK-MED ONCE IV ; Start 08/17/19 at 10:50; Stop 08/19/19 at 11:02; Status DC Hydromorphone HCl (Dilaudid Standard BOAT TESTER) 12 mg STK-MED ONCE IV ; Start 08/18/19 at 13:47; Stop 08/19/19 at 11:03; Status DC Potassium Acetate 30 meq/Magnesium Sulfate 20 meq/ Calcium Gluconate 10 meq/ Multivitamins 10 ml/Chromium/ Copper/Manganese/ Seleni/Zn 0.5 ml/ Insulin Human Regular 30 unit/ Potassium Chloride 30 meq/ Total Parenteral Nutrition/Amino Acids/Dextrose/ Fat Emulsion Intravenous 1,920 ml @ 80 mls/hr TPN CONT IV Last administered on 08/19/19at 22:34; Start 08/19/19 at 22:00; Stop 08/20/19 at 21:59; Status DC Potassium Chloride/Water 100 ml @ 100 mls/hr Q1H IV Last administered on at 13:05; Start 08/20/19 at 07:00; Stop 08/20/19 at 10:59; Status DC Magnesium Sulfate 50 ml @ 25 mls/hr 1X ONCE IV Last administered on 08/20/19at 10:34; Start 08/20/19 at 10:30; Stop 08/20/19 at 12:29; Status DC Potassium Chloride 75 meq/ Magnesium Sulfate 20 meq/Calcium Gluconate 10 meq/ Multivitamins 10 ml/Chromium/ Copper/Manganese/ Seleni/Zn 0.5 ml/ Insulin Human Regular 30 unit/ Total Parenteral Nutrition/Amino Acids/Dextrose/ Fat Emulsion Intravenous 1,920 ml @ 80 mls/hr TPN CONT IV Last administered on 08/20/19at 21:51; Start 08/20/19 at 22:00; Stop 08/21/19 at 22:00; Status DC Potassium Chloride 75 meq/ Magnesium Sulfate 20 meq/Calcium Gluconate 10 meq/ Multivitamins 10 ml/Chromium/ Copper/Manganese/ Seleni/Zn 0.5 ml/ Insulin Human Regular 25 unit/ Total Parenteral Nutrition/Amino Acids/Dextrose/ Fat Emulsion Intravenous 1,920 ml @ 80 mls/hr TPN CONT IV Last administered on 08/21/19at 22:04; Start 08/21/19 at 22:00; Stop 08/22/19 at 21:59; Status DC Hydromorphone HCl (Dilaudid) 0.4 mg PRN Q4HRS PRN IVP PAIN Last administered on 08/22/19at 10:57; Start 08/22/19 at 09:00; Stop 08/22/19 at 18:59; Status DC Micafungin Sodium 100 mg/Dextrose 100 ml @ 100 mls/hr Q24H IV Last administered on 09/13/19at 12:17; Start 08/22/19 at 11:00; Stop 09/14/19 at 09:59; Status DC Daptomycin 485 mg/ Sodium Chloride 50 ml @ 100 mls/hr Q24H IV Last administered on 08/29/19at 13:10; Start 08/22/19 at 11:00; Stop 08/30/19 at 07:44; Status DC Potassium Chloride 75 meq/ Magnesium Sulfate 15 meq/Calcium Gluconate 8 meq/ Multivitamins 10 ml/Chromium/ Copper/Manganese/ Seleni/Zn 0.5 ml/ Insulin Human Regular 25 unit/ Total Parenteral Nutrition/Amino Acids/Dextrose/ Fat Emulsion Intravenous 1,920 ml @ 80 mls/hr TPN CONT IV Last administered on 08/22/19at 23:08; Start 08/22/19 at 22:00; Stop 08/23/19 at 21:59; Status DC Haloperidol Lactate (Haldol Inj) 3 mg 1X ONCE IVP Last administered on 08/22/19at 14:37; Start 08/22/19 at 14:30; Stop 08/22/19 at 14:31; Status DC Hydromorphone HCl (Dilaudid) 1 mg PRN Q4HRS PRN IVP PAIN Last administered on 09/05/19at 06:25; Start 08/22/19 at 19:00; Stop 09/05/19 at 17:10; Status DC Potassium Chloride 75 meq/ Magnesium Sulfate 15 meq/Calcium Gluconate 8 meq/ Multivitamins 10 ml/Chromium/ Copper/Manganese/ Seleni/Zn 0.5 ml/ Insulin Human Regular 20 unit/ Total Parenteral Nutrition/Amino Acids/Dextrose/ Fat Emulsion Intravenous 1,920 ml @ 80 mls/hr TPN CONT IV Last administered on 08/23/19at 22:10; Start 08/23/19 at 22:00; Stop 08/24/19 at 21:59; Status DC Lidocaine HCl (Buffered Lidocaine 1%) 3 ml STK-MED ONCE .ROUTE ; Start 08/24/19 at 11:31; Stop 08/24/19 at 11:31; Status DC Lidocaine HCl (Buffered Lidocaine 1%) 3 ml STK-MED ONCE .ROUTE ; Start 08/24/19 at 12:28; Stop 08/24/19 at 12:29; Status DC Lidocaine HCl (Buffered Lidocaine 1%) 6 ml 1X ONCE INJ Last administered on 08/24/19at 12:53; Start 08/24/19 at 12:45; Stop 08/24/19 at 12:46; Status DC Potassium Chloride 75 meq/ Magnesium Sulfate 15 meq/Calcium Gluconate 8 meq/ Multivitamins 10 ml/Chromium/ Copper/Manganese/ Seleni/Zn 0.5 ml/ Insulin Human Regular 20 unit/ Total Parenteral Nutrition/Amino Acids/Dextrose/ Fat Emulsion Intravenous 1,920 ml @ 80 mls/hr TPN CONT IV Last administered on 08/24/19at 22:00; Start 08/24/19 at 22:00; Stop 08/25/19 at 21:59; Status DC Potassium Chloride 75 meq/ Magnesium Sulfate 15 meq/Calcium Gluconate 8 meq/ Multivitamins 10 ml/Chromium/ Copper/Manganese/ Seleni/Zn 0.5 ml/ Insulin Human Regular 15 unit/ Total Parenteral Nutrition/Amino Acids/Dextrose/ Fat Emulsion Intravenous 1,920 ml @ 80 mls/hr TPN CONT IV Last administered on 08/25/19at 22:28; Start 08/25/19 at 22:00; Stop 08/26/19 at 21:59; Status DC Vecuronium [place] (Norcuron Bolus) 6 mg PRN Q6HRS PRN IV VENT ASYNCHRONY; Start 08/25/19 at 19:15; Stop 08/25/19 at 19:35; Status DC Bumetanide (Bumex) 2 mg 1X ONCE IV Last administered on 08/25/19at 22:09; Start 08/25/19 at 19:45; Stop 08/25/19 at 19:46; Status DC Lidocaine HCl (Buffered Lidocaine 1%) 3 ml STK-MED ONCE .ROUTE ; Start 08/26/19 at 07:59; Stop 08/26/19 at 07:59; Status DC Midazolam HCl (Versed) 5 mg STK-MED ONCE .ROUTE ; Start 08/26/19 at 08:36; Stop 08/26/19 at 08:36; Status DC Fentanyl Citrate (Fentanyl 5ml Vial) 250 mcg STK-MED ONCE .ROUTE ; Start 08/26/19 at 08:36; Stop 08/26/19 at 08:37; Status DC Lidocaine HCl (Buffered Lidocaine 1%) 3 ml 1X ONCE IJ Last administered on 08/26/19at 09:30; Start 08/26/19 at 09:15; Stop 08/26/19 at 09:16; Status DC Midazolam HCl (Versed) 5 mg 1X ONCE IV Last administered on 08/26/19at 09:30; Start 08/26/19 at 09:15; Stop 08/26/19 at 09:16; Status DC Fentanyl Citrate (Fentanyl 5ml Vial) 250 mcg 1X ONCE IV Last administered on 08/26/19at 09:30; Start 08/26/19 at 09:15; Stop 08/26/19 at 09:16; Status DC Bumetanide (Bumex) 2 mg DAILY IV Last administered on 09/05/19at 08:07; Start 08/26/19 at 10:00; Stop 09/05/19 at 17:15; Status DC Potassium Chloride 75 meq/ Magnesium Sulfate 15 meq/ Multivitamins 10 ml/Chromium/ Copper/Manganese/ Seleni/Zn 0.5 ml/ Insulin Human Regular 15 unit/ Total Parenteral Nutrition/Amino Acids/Dextrose/ Fat Emulsion Intravenous 1,920 ml @ 80 mls/hr TPN CONT IV Last administered on 08/26/19at 21:59; Start 08/26/19 at 22:00; Stop 08/27/19 at 21:59; Status DC Metoclopramide HCl (Reglan Vial) 10 mg PRN Q3HRS PRN IVP NAUSEA/VOMITING-3rd choice Last administered on 09/01/19at 04:25; Start 08/27/19 at 16:45 Potassium Chloride 75 meq/ Magnesium Sulfate 15 meq/ Multivitamins 10 ml/Chromium/ Copper/Manganese/ Seleni/Zn 0.5 ml/ Insulin Human Regular 15 unit/ Total Parenteral Nutrition/Amino Acids/Dextrose/ Fat Emulsion Intravenous 1,920 ml @ 80 mls/hr TPN CONT IV Last administered on 08/27/19at 22:41; Start 08/27/19 at 22:00; Stop 08/28/19 at 21:59; Status DC Magnesium Sulfate 50 ml @ 25 mls/hr 1X ONCE IV Last administered on 08/28/19at 10:44; Start 08/28/19 at 09:00; Stop 08/28/19 at 10:59; Status DC Potassium Chloride/Water 100 ml @ 100 mls/hr 1X ONCE IV Last administered on 08/28/19at 09:37; Start 08/28/19 at 09:00; Stop 08/28/19 at 09:59; Status DC Duloxetine HCl (Cymbalta) 30 mg DAILY PO Last administered on 08/29/19at 09:48; Start 08/28/19 at 14:00; Stop 08/31/19 at 10:25; Status DC Potassium Chloride 80 meq/ Magnesium Sulfate 20 meq/ Multivitamins 10 ml/Chromium/ Copper/Manganese/ Seleni/Zn 0.5 ml/ Insulin Human Regular 15 unit/ Total Parenteral Nutrition/Amino Acids/Dextrose/ Fat Emulsion Intravenous 1,920 ml @ 80 mls/hr TPN CONT IV Last administered on 08/28/19at 21:42; Start 08/28/19 at 22:00; Stop 08/29/19 at 21:59; Status DC Potassium Chloride 80 meq/ Magnesium Sulfate 20 meq/ Multivitamins 10 ml/Chromium/ Copper/Manganese/ Seleni/Zn 0.5 ml/ Insulin Human Regular 15 unit/ Total Parenteral Nutrition/Amino Acids/Dextrose/ Fat Emulsion Intravenous 1,920 ml @ 80 mls/hr TPN CONT IV Last administered on 08/29/19at 22:20; Start 08/29/19 at 22:00; Stop 08/30/19 at 21:59; Status DC Lidocaine HCl (Buffered Lidocaine 1%) 3 ml STK-MED ONCE .ROUTE ; Start 08/30/19 at 09:54; Stop 08/30/19 at 09:55; Status DC Hydromorphone HCl (Dilaudid Standard BOAT TESTER) 12 mg STK-MED ONCE IV ; Start 08/19/19 at 15:50; Stop 08/30/19 at 11:24; Status DC Potassium Chloride 80 meq/ Magnesium Sulfate 20 meq/ Multivitamins 10 ml/Chromium/ Copper/Manganese/ Seleni/Zn 0.5 ml/ Insulin Human Regular 15 unit/ Total Parenteral Nutrition/Amino Acids/Dextrose/ Fat Emulsion Intravenous 1,920 ml @ 80 mls/hr TPN CONT IV Last administered on 08/30/19at 21:40; Start 08/30/19 at 22:00; Stop 08/31/19 at 21:59; Status DC Lidocaine HCl (Buffered Lidocaine 1%) 6 ml 1X ONCE INJ Last administered on 08/30/19at 14:15; Start 08/30/19 at 14:15; Stop 08/30/19 at 14:16; Status DC Potassium Chloride 80 meq/ Magnesium Sulfate 20 meq/ Multivitamins 10 ml/Chromium/ Copper/Manganese/ Seleni/Zn 1 ml/ Insulin Human Regular 15 unit/ Total Parenteral Nutrition/Amino Acids/Dextrose/ Fat Emulsion Intravenous 1,920 ml @ 80 mls/hr TPN CONT IV Last administered on 08/31/19at 22:04; Start 08/31/19 at 22:00; Stop 09/01/19 at 21:59; Status DC Potassium Chloride/Water 100 ml @ 100 mls/hr 1X ONCE IV Last administered on 09/01/19at 11:34; Start 09/01/19 at 11:00; Stop 09/01/19 at 11:59; Status DC Potassium Chloride 90 meq/ Magnesium Sulfate 20 meq/ Multivitamins 10 ml/Chromium/ Copper/Manganese/ Seleni/Zn 1 ml/ Insulin Human Regular 15 unit/ Total Parenteral Nutrition/Amino Acids/Dextrose/ Fat Emulsion Intravenous 1,920 ml @ 80 mls/hr TPN CONT IV Last administered on 09/01/19at 22:57; Start 09/01/19 at 22:00; Stop 09/02/19 at 21:59; Status DC Potassium Chloride 90 meq/ Magnesium Sulfate 20 meq/ Multivitamins 10 ml/Chromium/ Copper/Manganese/ Seleni/Zn 1 ml/ Insulin Human Regular 15 unit/ Total Parenteral Nutrition/Amino Acids/Dextrose/ Fat Emulsion Intravenous 1,920 ml @ 80 mls/hr TPN CONT IV Last administered on 09/02/19at 22:48; Start 09/02/19 at 22:00; Stop 09/03/19 at 21:59; Status DC Potassium Chloride 90 meq/ Magnesium Sulfate 20 meq/ Multivitamins 10 ml/Chromium/ Copper/Manganese/ Seleni/Zn 1 ml/ Insulin Human Regular 15 unit/ Total Parenteral Nutrition/Amino Acids/Dextrose/ Fat Emulsion Intravenous 1,890 ml @ 78.75 mls/ hr TPN CONT IV Last administered on 09/03/19at 22:15; Start 09/03/19 at 22:00; Stop 09/04/19 at 21:59; Status DC Linezolid/Dextrose 300 ml @ 300 mls/hr Q12HR IV Last administered on 09/06/19at 21:08; Start 09/04/19 at 09:00; Stop 09/07/19 at 08:11; Status DC Daptomycin 450 mg/ Sodium Chloride 50 ml @ 100 mls/hr Q24H IV Last administered on 09/07/19at 09:25; Start 09/04/19 at 09:00; Stop 09/08/19 at 08:30; Status DC Potassium Chloride 90 meq/ Magnesium Sulfate 20 meq/ Multivitamins 10 ml/Chromium/ Copper/Manganese/ Seleni/Zn 1 ml/ Insulin Human Regular 15 unit/ Total Parenteral Nutrition/Amino Acids/Dextrose/ Fat Emulsion Intravenous 1,890 ml @ 78.75 mls/ hr TPN CONT IV Last administered on 09/04/19at 21:34; Start 09/04/19 at 22:00; Stop 09/05/19 at 21:59; Status DC Lorazepam (Ativan Inj) 2 mg STK-MED ONCE .ROUTE ; Start 09/04/19 at 14:58; Stop 09/04/19 at 14:58; Status DC Metoprolol Tartrate (Lopressor Vial) 5 mg 1X ONCE IVP Last administered on 09/04/19at 15:31; Start 09/04/19 at 15:15; Stop 09/04/19 at 15:16; Status DC Lorazepam (Ativan Inj) 2 mg 1X ONCE IVP Last administered on 09/04/19at 15:30; Start 09/04/19 at 15:15; Stop 09/04/19 at 15:16; Status DC Enoxaparin Sodium (Lovenox 40mg Syringe) 40 mg Q24H SQ Last administered on 09/23/19at 17:44; Start 09/04/19 at 17:00; Stop 09/25/19 at 06:50; Status DC Lorazepam (Ativan Inj) 1 mg PRN Q4HRS PRN IVP ANXIETY / AGITATION MILD-MOD Last administered on 09/18/19at 15:55; Start 09/04/19 at 19:15; Stop 09/20/19 at 11:45; Status DC Lorazepam (Ativan Inj) 2 mg PRN Q4HRS PRN IVP ANXIETY / AGITATION SEVERE Last administered on 09/19/19at 07:55; Start 09/04/19 at 19:15; Stop 09/20/19 at 11:45; Status DC Fentanyl Citrate (Fentanyl 2ml Vial) 50 mcg PRN Q4HRS PRN IVP SEVERE PAIN Last administered on 10/01/19at 05:15; Start 09/05/19 at 13:15; Stop 10/02/19 at 09:29; Status DC Fentanyl Citrate (Fentanyl 2ml Vial) 25 mcg PRN Q4HRS PRN IVP MODERATE PAIN Last administered on 10/01/19at 00:27; Start 09/05/19 at 13:15; Stop 10/02/19 at 09:30; Status DC Potassium Chloride 90 meq/ Magnesium Sulfate 20 meq/ Multivitamins 10 ml/Chromium/ Copper/Manganese/ Seleni/Zn 1 ml/ Insulin Human Regular 15 unit/ Total Parenteral Nutrition/Amino Acids/Dextrose/ Fat Emulsion Intravenous 1,890 ml @ 78.75 mls/ hr TPN CONT IV Last administered on 09/05/19at 22:18; Start 09/05/19 at 22:00; Stop 09/06/19 at 21:59; Status DC Furosemide (Lasix) 40 mg 1X ONCE IVP Last administered on 09/05/19at 21:51; Start 09/05/19 at 21:45; Stop 09/05/19 at 21:48; Status DC Albumin Human 100 ml @ 100 mls/hr 1X PRN PRN IV SEE COMMENTS; Start 09/06/19 at 01:30; Stop 11/21/19 at 09:52; Status DC Furosemide (Lasix) 40 mg [id number] IVP Last administered on 09/21/19at 08:04; Start 09/06/19 at 14:00; Stop 09/21/19 at 13:07; Status DC Potassium Chloride 90 meq/ Magnesium Sulfate 20 meq/ Multivitamins 10 ml/Chromium/ Copper/Manganese/ Seleni/Zn 1 ml/ Insulin Human Regular 15 unit/ Total Parenteral Nutrition/Amino Acids/Dextrose/ Fat Emulsion Intravenous 1,800 ml @ 75 mls/hr TPN CONT IV Last administered on 09/06/19at 22:31; Start 09/06/19 at 22:00; Stop 09/07/19 at 21:59; Status DC Potassium Chloride 90 meq/ Magnesium Sulfate 20 meq/ Multivitamins 10 ml/Chromium/ Copper/Manganese/ Seleni/Zn 1 ml/ Insulin Human Regular 15 unit/ Total Parenteral Nutrition/Amino Acids/Dextrose/ Fat Emulsion Intravenous 1,800 ml @ 75 mls/hr TPN CONT IV Last administered on 09/07/19at 22:28; Start 09/07/19 at 22:00; Stop 09/08/19 at 21:59; Status DC Potassium Chloride 110 meq/ Magnesium Sulfate 20 meq/ Multivitamins 10 ml/Chromium/ Copper/Manganese/ Seleni/Zn 1 ml/ Insulin Human Regular 15 unit/ Total Parenteral Nutrition/Amino Acids/Dextrose/ Fat Emulsion Intravenous 1,800 ml @ 75 mls/hr TPN CONT IV Last administered on 09/08/19at 22:01; Start 09/08/19 at 22:00; Stop 09/09/19 at 21:59; Status DC Saliva Substitute (Biotene Moisturizing Mouth) 2 spray PRN Q15MIN PRN PO DRY MOUTH; Start 09/08/19 at 11:00 Potassium Chloride 110 meq/ Magnesium Sulfate 20 meq/ Multivitamins 10 ml/Chromium/ Copper/Manganese/ Seleni/Zn 1 ml/ Insulin Human Regular 15 unit/ Total Parenteral Nutrition/Amino Acids/Dextrose/ Fat Emulsion Intravenous 1,800 ml @ 75 mls/hr TPN CONT IV Last administered on 09/09/19at 22:21; Start 09/09/19 at 22:00; Stop 09/10/19 at 21:59; Status DC Potassium Chloride 110 meq/ Magnesium Sulfate 20 meq/ Multivitamins 10 ml/Chromium/ Copper/Manganese/ Seleni/Zn 1 ml/ Insulin Human Regular 15 unit/ Total Parenteral Nutrition/Amino Acids/Dextrose/ Fat Emulsion Intravenous 1,800 ml @ 75 mls/hr TPN CONT IV Last administered on 09/10/19at 22:04; Start 09/10/19 at 22:00; Stop 09/11/19 at 21:59; Status DC Potassium Chloride 110 meq/ Magnesium Sulfate 20 meq/ Multivitamins 10 ml/Chromium/ Copper/Manganese/ Seleni/Zn 1 ml/ Insulin Human Regular 15 unit/ Total Parenteral Nutrition/Amino Acids/Dextrose/ Fat Emulsion Intravenous 1,800 ml @ 75 mls/hr TPN CONT IV Last administered on 09/11/19at 22:48; Start 09/11/19 at 22:00; Stop 09/12/19 at 21:59; Status DC Potassium Chloride 70 meq/ Magnesium Sulfate 20 meq/ Multivitamins 10 ml/Chromium/ Copper/Manganese/ Seleni/Zn 1 ml/ Insulin Human Regular 15 unit/ Total Parenteral Nutrition/Amino Acids/Dextrose/ Fat Emulsion Intravenous 1,800 ml @ 75 mls/hr TPN CONT IV Last administered on 09/12/19at 21:39; Start 09/12/19 at 22:00; Stop 09/13/19 at 21:59; Status DC Meropenem 500 mg/ Sodium Chloride 50 ml @ 100 mls/hr Q6HRS IV Last administered on 09/14/19at 06:02; Start 09/12/19 at 18:00; Stop 09/14/19 at 09:59; Status DC Barium Sulfate (Varibar Thin Liquid Apple) 148 gm 1X ONCE PO ; Start 09/13/19 at 11:45; Stop 09/13/19 at 11:49; Status DC Potassium Chloride 70 meq/ Magnesium Sulfate 20 meq/ Multivitamins 10 ml/Chromium/ Copper/Manganese/ Seleni/Zn 1 ml/ Insulin Human Regular 15 unit/ Total Parenteral Nutrition/Amino Acids/Dextrose/ Fat Emulsion Intravenous 1,800 ml @ 75 mls/hr TPN CONT IV Last administered on 09/13/19at 22:27; Start 09/13/19 at 22:00; Stop 09/14/19 at 21:59; Status DC Piperacillin Sod/ Tazobactam Sod 3.375 gm/Sodium Chloride 50 ml @ 100 mls/hr Q6HRS IV Last administered on 09/22/19at 06:10; Start 09/14/19 at 12:00; Stop 09/22/19 at 07:26; Status DC Potassium Chloride 70 meq/ Magnesium Sulfate 20 meq/ Multivitamins 10 ml/Chromium/ Copper/Manganese/ Seleni/Zn 1 ml/ Insulin Human Regular 15 unit/ Total Parenteral Nutrition/Amino Acids/Dextrose/ Fat Emulsion Intravenous 1,800 ml @ 75 mls/hr TPN CONT IV Last administered on 09/14/19at 22:03; Start 09/14/19 at 22:00; Stop 09/15/19 at 21:59; Status DC Potassium Chloride 70 meq/ Magnesium Sulfate 20 meq/ Multivitamins 10 ml/Chromium/ Copper/Manganese/ Seleni/Zn 1 ml/ Insulin Human Regular 15 unit/ Total Parenteral Nutrition/Amino Acids/Dextrose/ Fat Emulsion Intravenous 1,800 ml @ 75 mls/hr TPN CONT IV Last administered on 09/15/19at 22:33; Start 09/15/19 at 22:00; Stop 09/16/19 at 21:59; Status DC Potassium Chloride 70 meq/ Magnesium Sulfate 20 meq/ Multivitamins 10 ml/Chromium/ Copper/Manganese/ Seleni/Zn 1 ml/ Insulin Human Regular 15 unit/ Total Parenteral Nutrition/Amino Acids/Dextrose/ Fat Emulsion Intravenous 1,800 ml @ 75 mls/hr TPN CONT IV Last administered on 09/16/19at 23:13; Start 09/16/19 at 22:00; Stop 09/17/19 at 21:59; Status DC Potassium Chloride 80 meq/ Magnesium Sulfate 20 meq/ Multivitamins 10 ml/Chromium/ Copper/Manganese/ Seleni/Zn 1 ml/ Insulin Human Regular 15 unit/ Total Parenteral Nutrition/Amino Acids/Dextrose/ Fat Emulsion Intravenous 1,800 ml @ 75 mls/hr TPN CONT IV Last administered on 09/17/19at 22:30; Start 09/17/19 at 22:00; Stop 09/18/19 at 21:59; Status DC Potassium Chloride 80 meq/ Magnesium Sulfate 20 meq/ Multivitamins 10 ml/Chromium/ Copper/Manganese/ Seleni/Zn 1 ml/ Insulin Human Regular 15 unit/ Total Parenteral Nutrition/Amino Acids/Dextrose/ Fat Emulsion Intravenous 1,800 ml @ 75 mls/hr TPN CONT IV Last administered on 09/18/19at 21:54; Start 09/18/19 at 22:00; Stop 09/19/19 at 21:59; Status DC Potassium Chloride/Water 100 ml @ 100 mls/hr 1X ONCE IV Last administered on 09/19/19at 10:15; Start 09/19/19 at 10:00; Stop 09/19/19 at 10:59; Status DC Potassium Chloride 90 meq/ Magnesium Sulfate 20 meq/ Multivitamins 10 ml/Chromium/ Copper/Manganese/ Seleni/Zn 1 ml/ Insulin Human Regular 20 unit/ To anthony Parenteral Nutrition/Amino Acids/Dextrose/ Fat Emulsion Intravenous 1,800 ml @ 75 mls/hr TPN CONT IV Last administered on 09/19/19at 22:28; Start 09/19/19 at 22:00; Stop 09/20/19 at 21:59; Status DC Potassium Chloride 90 meq/ Magnesium Sulfate 20 meq/ Multivitamins 10 ml/Chromium/ Copper/Manganese/ Seleni/Zn 1 ml/ Insulin Human Regular 20 unit/ Total Parenteral Nutrition/Amino Acids/Dextrose/ Fat Emulsion Intravenous 1,800 ml @ 75 mls/hr TPN CONT IV Last administered on 09/20/19at 22:08; Start 09/20/19 at 22:00; Stop 09/21/19 at 21:59; Status DC Lorazepam (Ativan Inj) 0.25 mg PRN Q4HRS PRN IVP ANXIETY / AGITATION Last administered on 12/01/19at 15:56; Start 09/21/19 at 07:30 Potassium Chloride 90 meq/ Magnesium Sulfate 20 meq/ Multivitamins 10 ml/Chromium/ Copper/Manganese/ Seleni/Zn 1 ml/ Insulin Human Regular 20 unit/ Total Parenteral Nutrition/Amino Acids/Dextrose/ Fat Emulsion Intravenous 1,800 ml @ 75 mls/hr TPN CONT IV Last administered on 09/21/19at 23:13; Start 09/21/19 at 22:00; Stop 09/22/19 at 21:59; Status DC Furosemide (Lasix) 40 mg DAILY IVP Last administered on 09/23/19at 11:14; Start 09/21/19 at 13:30; Stop 09/25/19 at 09:12; Status DC Fluoxetine HCl (PROzac) 20 mg QHS PEG Last administered on 12/02/19at 20:45; Start 09/22/19 at 21:00 Fentanyl (Duragesic 50mcg/ Hr Patch) 1 patch Q72H TD Last administered on 09/22/19at 21:22; Start 09/22/19 at 21:00; Stop 10/01/19 at 12:00; Status DC Potassium Chloride 40 meq/ Potassium Acetate 60 meq/Magnesium Sulfate 10 meq/ Multivitamins 10 ml/Chromium/ Copper/Manganese/ Seleni/Zn 1 ml/ Insulin Human Regular 20 unit/ Total Parenteral Nutrition/Amino Acids/Dextrose/ Fat Emulsion Intravenous 1,800 ml @ 75 mls/hr TPN CONT IV Last administered on 09/23/19at 00:03; Start 09/22/19 at 22:00; Stop 09/23/19 at 21:59; Status DC Potassium Acetate 80 meq/Magnesium Sulfate 5 meq/ Multivitamins 10 ml/Chromium/ Copper/Manganese/ Seleni/Zn 1 ml/ Insulin Human Regular 20 unit/ Total Parenteral Nutrition/Amino Acids/Dextrose/ Fat Emulsion Intravenous 1,920 ml @ 80 mls/hr TPN CONT IV Last administered on 09/23/19at 21:59; Start 09/23/19 at 22:00; Stop 09/24/19 at 21:59; Status DC Potassium Acetate 60 meq/Magnesium Sulfate 5 meq/ Multivitamins 10 ml/Chromium/ Copper/Manganese/ Seleni/Zn 1 ml/ Insulin Human Regular 30 unit/ Total Pare nteral Nutrition/Amino Acids/Dextrose/ Fat Emulsion Intravenous 1,920 ml @ 80 mls/hr TPN CONT IV Last administered on 09/24/19at 21:54; Start 09/24/19 at 22:00; Stop 09/25/19 at 21:59; Status DC Norepinephrine Bitartrate 8 mg/ Dextrose 258 ml @ 13.332 mls/ hr CONT PRN IV PER PROTOCOL Last administered on 10/20/19at 09:09; Start 09/25/19 at 06:30; Stop 11/21/19 at 09:45; Status DC Albumin Human 500 ml @ 125 mls/hr 1X ONCE IV Last administered on 09/25/19at 08:10; Start 09/25/19 at 08:15; Stop 09/25/19 at 12:14; Status DC Potassium Acetate 40 meq/Magnesium Sulfate 5 meq/ Multivitamins 10 ml/Chromium/ Copper/Manganese/ Seleni/Zn 1 ml/ Insulin Human Regular 30 unit/ Total Parenteral Nutrition/Amino Acids/Dextrose/ Fat Emulsion Intravenous 1,920 ml @ 80 mls/hr TPN CONT IV Last administered on 09/25/19at 22:23; Start 09/25/19 at 22:00; Stop 09/26/19 at 21:59; Status DC Meropenem 1 gm/ Sodium Chloride 100 ml @ 200 mls/hr Q8HRS IV ; Start 09/25/19 at 14:00; Status Cancel Meropenem 1 gm/ Sodium Chloride 100 ml @ 200 mls/hr Q8HRS IV Last administered on 09/25/19at 11:04; Start 09/25/19 at 10:00; Stop 09/25/19 at 13:00; Status DC Meropenem 1 gm/ Sodium Chloride 100 ml @ 200 mls/hr Q12HR IV Last administered on 10/13/19at 08:27; Start 09/25/19 at 21:00; Stop 10/13/19 at 08:56; Status DC Sodium Chloride 1,000 ml @ 1,000 mls/hr 1X ONCE IV Last administered on 09/25/19at 11:06; Start 09/25/19 at 10:45; Stop 09/25/19 at 11:44; Status DC Micafungin Sodium 100 mg/Dextrose 100 ml @ 100 mls/hr Q24H IV Last administered on 10/12/19at 12:34; Start 09/25/19 at 11:00; Stop 10/13/19 at 08:56; Status DC Daptomycin 410 mg/ Sodium Chloride 50 ml @ 100 mls/hr Q24H IV Last administered on 09/27/19at 13:33; Start 09/25/19 at 14:00; Stop 09/28/19 at 08:30; Status DC Midazolam HCl (Versed) 2 mg STK-MED ONCE .ROUTE ; Start 09/25/19 at 14:47; Stop 09/25/19 at 14:48; Status DC Fentanyl Citrate (Fentanyl 2ml Vial) 100 mcg STK-MED ONCE .ROUTE ; Start 09/25/19 at 14:47; Stop 09/25/19 at 14:48; Status DC Flumazenil (Romazicon) 0.5 mg STK-MED ONCE IV ; Start 09/25/19 at 14:48; Stop 09/25/19 at 14:48; Status DC Naloxone HCl (Narcan) 0.4 mg STK-MED ONCE .ROUTE ; Start 09/25/19 at 14:48; Stop 09/25/19 at 14:48; Status DC Lidocaine HCl (Lidocaine 1% 20ml Vial) 20 ml STK-MED ONCE .ROUTE ; Start 09/25/19 at 14:48; Stop 09/25/19 at 14:48; Status DC Midazolam HCl (Versed) 2 mg 1X ONCE IV Last administered on 09/25/19at 15:28; Start 09/25/19 at 15:00; Stop 09/25/19 at 15:01; Status DC Fentanyl Citrate (Fentanyl 2ml Vial) 100 mcg 1X ONCE IV Last administered on 09/25/19at 15:28; Start 09/25/19 at 15:00; Stop 09/25/19 at 15:01; Status DC Lidocaine HCl (Lidocaine 1% 20ml Vial) 20 ml 1X ONCE INJ Last administered on 09/25/19at 15:30; Start 09/25/19 at 15:00; Stop 09/25/19 at 15:01; Status DC Sodium Chloride 1,000 ml @ 100 mls/hr Q10H IV Last administered on 10/04/19at 07:30; Start 09/25/19 at 20:00; Stop 10/04/19 at 11:26; Status DC Sodium Bicarbonate (Sodium Bicarb Adult 8.4% Syr) 50 meq 1X ONCE IV Last administered on 09/25/19at 21:47; Start 09/25/19 at 22:00; Stop 09/25/19 at 22:01; Status DC Potassium Acetate 40 meq/Magnesium Sulfate 5 meq/ Multivitamins 10 ml/Chromium/ Copper/Manganese/ Seleni/Zn 1 ml/ Insulin Human Regular 30 unit/ Total Parenteral Nutrition/Amino Acids/Dextrose/ Fat Emulsion Intravenous 1,920 ml @ 80 mls/hr TPN CONT IV Last administered on 09/26/19at 22:28; Start 09/26/19 at 22:00; Stop 09/27/19 at 21:59; Status DC Sodium Chloride 500 ml @ 500 mls/hr 1X ONCE IV Last administered on 09/27/19at 06:39; Start 09/27/19 at 06:45; Stop 09/27/19 at 07:44; Status DC Potassium Acetate 40 meq/Magnesium Sulfate 5 meq/ Multivitamins 10 ml/Chromium/ Copper/Manganese/ Seleni/Zn 1 ml/ Insulin Human Regular 30 unit/ Total Parenteral Nutrition/Amino Acids/Dextrose/ Fat Emulsion Intravenous 1,920 ml @ 80 mls/hr TPN CONT IV Last administered on 09/27/19at 22:03; Start 09/27/19 at 22:00; Stop 09/28/19 at 21:59; Status DC Metoprolol Tartrate (Lopressor Vial) 5 mg PRN Q6HRS PRN IVP HYPERTENSION Last administered on 11/29/19at 10:02; Start 09/28/19 at 09:00 Potassium Acetate 40 meq/Magnesium Sulfate 5 meq/ Multivitamins 10 ml/Chromium/ Copper/Manganese/ Seleni/Zn 1 ml/ Insulin Human Regular 30 unit/ Total Parenteral Nutrition/Amino Acids/Dextrose/ Fat Emulsion Intravenous 1,920 ml @ 80 mls/hr TPN CONT IV Last administered on 09/28/19at 21:26; Start 09/28/19 at 22:00; Stop 09/29/19 at 21:59; Status DC Potassium Acetate 40 meq/Magnesium Sulfate 5 meq/ Multivitamins 10 ml/Chromium/ Copper/Manganese/ Seleni/Zn 1 ml/ Insulin Human Regular 30 unit/ Total Parenteral Nutrition/Amino Acids/Dextrose/ Fat Emulsion Intravenous 1,920 ml @ 80 mls/hr TPN CONT IV Last administered on 09/29/19at 23:23; Start 09/29/19 at 22:00; Stop 09/30/19 at 21:59; Status DC Potassium Acetate 40 meq/Magnesium Sulfate 5 meq/ Multivitamins 10 ml/Chromium/ Copper/Manganese/ Seleni/Zn 1 ml/ Insulin Human Regular 30 unit/ Total Parenteral Nutrition/Amino Acids/Dextrose/ Fat Emulsion Intravenous 1,920 ml @ 80 mls/hr TPN CONT IV Last administered on 09/30/19at 21:35; Start 09/30/19 at 22:00; Stop 10/01/19 at 21:59; Status DC Furosemide (Lasix) 20 mg 1X ONCE IVP Last administered on 10/01/19at 06:26; Start 10/01/19 at 06:15; Stop 10/01/19 at 06:16; Status DC Methylprednisolone Sodium Succinate (SOLU-Medrol 125MG VIAL) 125 mg 1X ONCE IV Last administered on 10/01/19at 06:26; Start 10/01/19 at 06:15; Stop 10/01/19 at 06:16; Status DC Albuterol/ Ipratropium (Duoneb) 3 ml Q4HRS NEB Last administered on 12/03/19at 11:43; Start 10/01/19 at 08:00 Fentanyl Citrate 30 ml @ 0 mls/hr CONT PRN IV SEE PROTOCOL Last administered on 10/22/19at 08:03; Start 10/01/19 at 06:00; Stop 10/22/19 at 12:42; Status DC Propofol 100 ml @ 0 mls/hr CONT PRN IV SEE PROTOCOL Last administered on 10/08/19at 23:50; Start 10/01/19 at 06:00; Stop 11/21/19 at 09:45; Status DC Fentanyl Citrate (Fentanyl 2ml Vial) 25 mcg PRN Q1HR PRN IV SEE COMMENTS Last administered on 11/19/19at 23:56; Start 10/01/19 at 06:00; Stop 11/21/19 at 09:45; Status DC Fentanyl Citrate (Fentanyl 2ml Vial) 50 mcg PRN Q1HR PRN IV SEE COMMENTS Last administered on 11/21/19at 09:39; Start 10/01/19 at 06:00; Stop 11/21/19 at 09:45; Status DC Chlorhexidine Gluconate (Peridex) 15 ml BID MM ; Start 10/01/19 at 09:00; Stop 10/01/19 at 07:58; Status DC Potassium Acetate 40 meq/Magnesium Sulfate 5 meq/ Multivitamins 10 ml/Chromium/ Copper/Manganese/ Seleni/Zn 1 ml/ Insulin Human Regular 30 unit/ Total Parenteral Nutrition/Amino Acids/Dextrose/ Fat Emulsion Intravenous 1,920 ml @ 80 mls/hr TPN CONT IV Last administered on 10/01/19at 21:19; Start 10/01/19 at 22:00; Stop 10/02/19 at 21:59; Status DC Acetylcysteine (Mucomyst 20% Resp Treatment) 600 mg BID NEB Last administered on 10/07/19at 09:33; Start 10/01/19 at 21:00; Stop 10/07/19 at 10:39; Status DC Magnesium Sulfate 100 ml @ 25 mls/hr 1X ONCE IV Last administered on 10/01/19at 15:48; Start 10/01/19 at 15:45; Stop 10/01/19 at 19:44; Status DC Potassium Acetate 40 meq/Magnesium Sulfate 5 meq/ Multivitamins 10 ml/Chromium/ Copper/Manganese/ Seleni/Zn 1 ml/ Insulin Human Regular 30 unit/ Total Parenteral Nutrition/Amino Acids/Dextrose/ Fat Emulsion Intravenous 1,920 ml @ 80 mls/hr TPN CONT IV Last administered on 10/02/19at 21:35; Start 10/02/19 at 22:00; Stop 10/03/19 at 21:59; Status DC Potassium Chloride/Water 100 ml @ 100 mls/hr Q1H IV Last administered on 10/03/19at 08:31; Start 10/03/19 at 07:00; Stop 10/03/19 at 08:59; Status DC Potassium Acetate 40 meq/Magnesium Sulfate 5 meq/ Multivitamins 10 ml/Chromium/ Copper/Manganese/ Seleni/Zn 1 ml/ Insulin Human Regular 30 unit/ Total Parenteral Nutrition/Amino Acids/Dextrose/ Fat Emulsion Intravenous 1,920 ml @ 80 mls/hr TPN CONT IV Last administered on 10/03/19at 21:54; Start 10/03/19 at 22:00; Stop 10/04/19 at 19:34; Status DC Lidocaine HCl (Buffered Lidocaine 1%) 3 ml STK-MED ONCE .ROUTE ; Start 10/03/19 at 12:14; Stop 10/03/19 at 12:14; Status DC Lidocaine HCl (Buffered Lidocaine 1%) 3 ml 1X ONCE IJ Last administered on 10/03/19at 13:11; Start 10/03/19 at 13:00; Stop 10/03/19 at 13:01; Status DC Magnesium Sulfate 50 ml @ 25 mls/hr 1X ONCE IV ; Start 10/04/19 at 08:15; Stop 10/04/19 at 10:14; Status DC Potassium Acetate 40 meq/Magnesium Sulfate 10 meq/ Multivitamins 10 ml/Chromium/ Copper/Manganese/ Seleni/Zn 1 ml/ Insulin Human Regular 20 unit/ Total Parenteral Nutrition/Amino Acids/Dextrose/ Fat Emulsion Intravenous 1,920 ml @ 80 mls/hr TPN CONT IV Last administered on 10/04/19at 21:32; Start 10/04/19 at 22:00; Stop 10/05/19 at 21:59; Status DC Potassium Chloride/Water 100 ml @ 100 mls/hr Q1H IV Last administered on 10/05/19at 09:12; Start 10/05/19 at 08:00; Stop 10/05/19 at 09:59; Status DC Alteplase, Recombinant (Cathflo For Central Catheter Clearance) 4 mg 1X ONCE INT CAT ; Start 10/05/19 at 09:15; Stop 10/05/19 at 09:16; Status UNV Alteplase, Recombinant (Cathflo For Central Catheter Clearance) 4 mg 1X ONCE INT CAT ; Start 10/05/19 at 09:15; Stop 10/05/19 at 09:16; Status UNV Alteplase, Recombinant (Cathflo For Central Catheter Clearance) 4 mg 1X ONCE INT CAT ; Start 10/05/19 at 09:15; Stop 10/05/19 at 09:16; Status UNV Alteplase, Recombinant 4 mg/ Sodium Chloride 20 ml @ 20 mls/hr 1X ONCE IV Last administered on 10/05/19at 10:10; Start 10/05/19 at 10:00; Stop 10/05/19 at 10:59; Status DC Alteplase, Recombinant 4 mg/ Sodium Chloride 20 ml @ 20 mls/hr 1X ONCE IV Last administered on 10/05/19at 10:09; Start 10/05/19 at 10:00; Stop 10/05/19 at 10:59; Status DC Alteplase, Recombinant 4 mg/ Sodium Chloride 20 ml @ 20 mls/hr 1X ONCE IV Last administered on 10/05/19at 10:09; Start 10/05/19 at 10:00; Stop 10/05/19 at 10:59; Status DC Potassium Acetate 60 meq/Magnesium Sulfate 10 meq/ Multivitamins 10 ml/Chromium/ Copper/Manganese/ Seleni/Zn 1 ml/ Insulin Human Regular 20 unit/ Total Janett ral Nutrition/Amino Acids/Dextrose/ Fat Emulsion Intravenous 1,920 ml @ 80 mls/hr TPN CONT IV Last administered on 10/05/19at 21:55; Start 10/05/19 at 22:00; Stop 10/06/19 at 21:59; Status DC Albumin Human 500 ml @ 125 mls/hr 1X ONCE IV Last administered on 10/06/19at 12:01; Start 10/06/19 at 11:15; Stop 10/06/19 at 15:14; Status DC Sodium Chloride 500 ml @ 500 mls/hr 1X ONCE IV Last administered on 10/06/19at 13:50; Start 10/06/19 at 11:15; Stop 10/06/19 at 12:14; Status DC Potassium Acetate 60 meq/Magnesium Sulfate 14 meq/ Multivitamins 10 ml/Chromium/ Copper/Manganese/ Seleni/Zn 1 ml/ Insulin Human Regular 20 unit/ Total Parenteral Nutrition/Amino Acids/Dextrose/ Fat Emulsion Intravenous 1,920 ml @ 80 mls/hr TPN CONT IV Last administered on 10/06/19at 22:26; Start 10/06/19 at 22:00; Stop 10/07/19 at 21:59; Status DC Ciprofloxacin/ Dextrose 200 ml @ 200 mls/hr Q12HR IV Last administered on 10/13/19at 08:27; Start 10/06/19 at 21:00; Stop 10/13/19 at 08:56; Status DC Albumin Human 250 ml @ 62.5 mls/hr 1X ONCE IV Last administered on 10/07/19at 11:09; Start 10/07/19 at 11:00; Stop 10/07/19 at 14:59; Status DC Furosemide (Lasix) 20 mg 1X ONCE IVP Last administered on 10/07/19at 14:52; Start 10/07/19 at 10:45; Stop 10/07/19 at 10:49; Status DC Potassium Acetate 60 meq/Magnesium Sulfate 14 meq/ Multivitamins 10 ml/Chromium/ Copper/Manganese/ Seleni/Zn 1 ml/ Insulin Human Regular 15 unit/ Total Parenteral Nutrition/Amino Acids/Dextrose/ Fat Emulsion Intravenous 1,920 ml @ 80 mls/hr TPN CONT IV Last administered on 10/07/19at 22:08; Start 10/07/19 at 22:00; Stop 10/08/19 at 21:59; Status DC Potassium Acetate 60 meq/Magnesium Sulfate 14 meq/ Multivitamins 10 ml/Chromium/ Copper/Manganese/ Seleni/Zn 1 ml/ Insulin Human Regular 15 unit/ Total Parent eral Nutrition/Amino Acids/Dextrose/ Fat Emulsion Intravenous 1,920 ml @ 80 mls/hr TPN CONT IV Last administered on 10/08/19at 22:12; Start 10/08/19 at 22:00; Stop 10/09/19 at 21:59; Status DC Potassium Acetate 60 meq/Magnesium Sulfate 14 meq/ Multivitamins 10 ml/Chromium/ Copper/Manganese/ Seleni/Zn 1 ml/ Insulin Human Regular 15 unit/ Total Parenteral Nutrition/Amino Acids/Dextrose/ Fat Emulsion Intravenous 1,920 ml @ 80 mls/hr TPN CONT IV Last administered on 10/09/19at 22:22; Start 10/09/19 at 22:00; Stop 10/10/19 at 21:59; Status DC Furosemide (Lasix) 20 mg 1X ONCE IVP Last administered on 10/10/19at 11:07; Start 10/10/19 at 10:30; Stop 10/10/19 at 10:34; Status DC Potassium Acetate 60 meq/Magnesium Sulfate 14 meq/ Multivitamins 10 ml/Chromium/ Copper/Manganese/ Seleni/Zn 1 ml/ Insulin Human Regular 15 unit/ Sodium Chloride 20 meq/Total Parenteral Nutrition/Amino Acids/Dextrose/ Fat Emulsion Intravenous 1,920 ml @ 80 mls/hr TPN CONT IV Last administered on 10/10/19at 21:54; Start 10/10/19 at 22:00; Stop 10/11/19 at 21:59; Status DC Potassium Acetate 30 meq/Magnesium Sulfate 14 meq/ Multivitamins 10 ml/Chromium/ Copper/Manganese/ Seleni/Zn 1 ml/ Insulin Human Regular 15 unit/ Sodium Chloride 20 meq/Potassium Chloride 30 meq/ Total Parenteral Nutrition/Amino Acids/Dextrose/ Fat Emulsion Intravenous 1,920 ml @ 80 mls/hr TPN CONT IV Last administered on 10/11/19at 21:46; Start 10/11/19 at 22:00; Stop 10/12/19 at 21:59; Status DC Sodium Chloride 80 meq/Potassium Chloride 30 meq/ Potassium Acetate 30 meq/Magnesium Sulfate 14 meq/ Multivitamins 10 ml/Chromium/ Copper/Manganese/ Seleni/Zn 1 ml/ Insulin Human Regular 15 unit/ Total Parenteral Nutrition/Amino Acids/Dextrose/ Fat Emulsion Intravenous 1,920 ml @ 80 mls/hr TPN CONT IV Last administered on 10/12/19at 22:33; Start 10/12/19 at 22:00; Stop 10/13/19 at 21:59; Status DC Furosemide (Lasix) 40 mg 1X ONCE IVP Last administered on 10/12/19at 16:27; Start 10/12/19 at 15:30; Stop 10/12/19 at 15:33; Status DC Albumin Human 250 ml @ 62.5 mls/hr 1X ONCE IV Last administered on 10/12/19at 16:27; Start 10/12/19 at 15:30; Stop 10/12/19 at 19:29; Status DC Sodium Chloride 80 meq/Potassium Chloride 30 meq/ Potassium Acetate 30 meq/Magnesium Sulfate 14 meq/ Multivitamins 10 ml/Chromium/ Copper/Manganese/ Seleni/Zn 1 ml/ Insulin Human Regular 15 unit/ Total Parenteral Nutrition/Amino Acids/Dextrose/ Fat Emulsion Intravenous 1,920 ml @ 80 mls/hr TPN CONT IV Last administered on 10/13/19at 22:25; Start 10/13/19 at 22:00; Stop 10/14/19 at 21:59; Status DC Sodium Chloride 80 meq/Potassium Chloride 30 meq/ Potassium Acetate 30 meq/Magnesium Sulfate 14 meq/ Multivitamins 10 ml/Chromium/ Copper/Manganese/ Seleni/Zn 1 ml/ Insulin Human Regular 15 unit/ Total Parenteral Nutrition/Amino Acids/Dextrose/ Fat Emulsion Intravenous 1,920 ml @ 80 mls/hr TPN CONT IV Last administered on 10/14/19at 21:32; Start 10/14/19 at 22:00; Stop 10/15/19 at 21:59; Status DC Sodium Chloride 80 meq/Potassium Chloride 30 meq/ Potassium Acetate 30 meq/Magnesium Sulfate 14 meq/ Multivitamins 10 ml/Chromium/ Copper/Manganese/ Seleni/Zn 1 ml/ Insulin Human Regular 15 unit/ Total Parenteral Nutrition/Amino Acids/Dextrose/ Fat Emulsion Intravenous 1,920 ml @ 80 mls/hr TPN CONT IV Last administered on 10/15/19at 21:53; Start 10/15/19 at 22:00; Stop 10/16/19 at 21:59; Status DC Acetylcysteine (Mucomyst 20% Resp Treatment) 600 mg RTBID NEB Last administered on 12/03/19at 07:54; Start 10/15/19 at 12:00 Sodium Chloride 80 meq/Potassium Chloride 30 meq/ Potassium Acetate 30 meq/Magnesium Sulfate 14 meq/ Multivitamins 10 ml/Chromium/ Copper/Manganese/ Seleni/Zn 1 ml/ Insulin Human Regular 15 unit/ Total Parenteral Nutrition/Amino Acids/Dextrose/ Fat Emulsion Intravenous 1,920 ml @ 80 mls/hr TPN CONT IV Last administered on 10/16/19at 22:06; Start 10/16/19 at 22:00; Stop 10/17/19 at 21:59; Status DC Meropenem 500 mg/ Sodium Chloride 50 ml @ 100 mls/hr Q6HRS IV Last ad ministered on 11/08/19at 06:15; Start 10/16/19 at 18:00; Stop 11/08/19 at 08:23; Status DC Daptomycin 500 mg/ Sodium Chloride 50 ml @ 100 mls/hr Q24H IV Last administered on 10/24/19at 21:47; Start 10/16/19 at 19:00; Stop 10/25/19 at 08:13; Status DC Sodium Chloride 80 meq/Potassium Chloride 30 meq/ Potassium Acetate 30 meq/Magnesium Sulfate 14 meq/ Multivitamins 10 ml/Chromium/ Copper/Manganese/ Seleni/Zn 1 ml/ Insulin Human Regular 15 unit/ Total Parenteral Nutrition/Amino Acids/Dextrose/ Fat Emulsion Intravenous 1,920 ml @ 80 mls/hr TPN CONT IV Last administered on 10/17/19at 22:09; Start 10/17/19 at 22:00; Stop 10/18/19 at 21:59; Status DC Heparin Sodium (Porcine) 1000 unit/Sodium Chloride 1,001 ml @ 1,001 mls/hr 1X ONCE IRR ; Start 10/18/19 at 06:00; Stop 10/18/19 at 06:59; Status DC Propofol (Diprivan) 200 mg STK-MED ONCE IV ; Start 10/18/19 at 07:44; Stop 10/18/19 at 07:44; Status DC Lidocaine HCl (Lidocaine Pf 2% Vial) 5 ml STK-MED ONCE .ROUTE ; Start 10/18/19 at 07:44; Stop 6/30/20 at 07:44; Status DC Fentanyl Citrate (Fentanyl 2ml Vial) 100 mcg STK-MED ONCE .ROUTE ; Start 10/18/19 at 07:44; Stop 10/18/19 at 07:44; Status DC Rocuronium [place] (Zemuron) 100 mg STK-MED ONCE .ROUTE ; Start 10/18/19 at 07:44; Stop 10/18/19 at 07:44; Status DC Micafungin Sodium 100 mg/Dextrose 100 ml @ 100 mls/hr Q24H IV Last administered on 11/22/19at 09:30; Start 10/18/19 at 08:30; Stop 11/23/19 at 08:20; Status DC Bupivacaine HCl/ Epinephrine Bitart (Sensorcain-Epi 0.5%-1:[id number] Mpf) 30 ml STK-MED ONCE .ROUTE ; Start 10/18/19 at 08:34; Stop 10/18/19 at 08:35; Status DC Iohexol (Omnipaque 300 Mg/ml) 50 ml STK-MED ONCE .ROUTE Last administered on 10/18/19at 13:30; Start 10/18/19 at 08:35; Stop 10/18/19 at 08:35; Status DC Sodium Chloride 80 meq/Potassium Chloride 30 meq/ Potassium Acetate 30 meq/Magnesium Sulfate 14 meq/ Multivitamins 10 ml/Chromium/ Copper/Manganese/ Seleni/Zn 1 ml/ Insulin Human Regular 15 unit/ Total Parenteral Nutrition/Amino Acids/Dextrose/ Fat Emulsion Intravenous 1,920 ml @ 80 mls/hr TPN CONT IV Last administered on 10/19/19at 01:22; Start 10/18/19 at 22:00; Stop 10/19/19 at 21:59; Status DC Phenylephrine HCl (Brayden-Synephrine Inj) 10 mg STK-MED ONCE .ROUTE ; Start 10/18/19 at 10:15; Stop 10/18/19 at 10:15; Status DC Desflurane (Suprane) 90 ml STK-MED ONCE IH ; Start 10/18/19 at 10:18; Stop 10/18/19 at 10:19; Status DC Albumin Human 500 ml @ As Directed STK-MED ONCE IV ; Start 10/18/19 at 11:06; Stop 10/18/19 at 11:06; Status DC Vasopressin (Vasostrict) 20 unit STK-MED ONCE .ROUTE ; Start 10/18/19 at 12:23; Stop 10/18/19 at 12:23; Status DC Phenylephrine HCl (Brayden-Synephrine Inj) 10 mg STK-MED ONCE .ROUTE ; Start 10/18/19 at 13:33; Stop 10/18/19 at 13:33; Status DC Phenylephrine HCl (Brayden-Synephrine Inj) 10 mg STK-MED ONCE .ROUTE ; Start 10/18/19 at 13:33; Stop 10/18/19 at 13:33; Status DC Ondansetron HCl (Zofran) 4 mg STK-MED ONCE .ROUTE ; Start 10/18/19 at 13:33; Stop 10/18/19 at 13:33; Status DC Enoxaparin Sodium (Lovenox 40mg Syringe) 40 mg Q24H SQ Last administered on 12/03/19at 08:54; Start 10/19/19 at 08:00 Sodium Chloride (Normal Saline Flush) 3 ml QSHIFT PRN IV AFTER MEDS AND BLOOD DRAWS; Start 10/18/19 at 14:45; Stop 11/21/19 at 09:45; Status DC Naloxone HCl (Narcan) 0.4 mg PRN Q2MIN PRN IV SEE INSTRUCTIONS; Start 10/18/19 at 14:45; Stop 11/21/19 at 09:45; Status DC Sodium Chloride 1,000 ml @ 25 mls/hr Q24H IV Last administered on 11/20/19at 20:55; Start 10/18/19 at 14:33; Stop 11/21/19 at 09:45; Status DC Morphine Sulfate (Morphine Sulfate) 1 mg PRN Q1HR PRN IV PAIN Last administered on 11/12/19at 18:28; Start 10/18/19 at 14:45; Stop 11/21/19 at 09:45; Status DC Midazolam HCl 100 mg/Sodium Chloride 100 ml @ 1 mls/hr CONT PRN IV SEE I/O RECORD Last administered on 10/21/19at 18:48; Start 10/18/19 at 14:45; Stop 11/21/19 at 09:45; Status DC Phenylephrine HCl (PHENYLEPHRINE in 0.9% NACL PF) 1 mg STK-MED ONCE IV ; Start 10/18/19 at 14:44; Stop 10/18/19 at 14:45; Status DC Ephedrine Sulfate (ePHEDrine PF IN SALINE SYRINGE) 50 mg STK-MED ONCE IV ; Start 10/18/19 at 14:45; Stop 10/18/19 at 14:45; Status DC Vasopressin 20 unit/Dextrose 101 ml @ 12 mls/hr CONT PRN IV SEE I/O RECORD Last administered on 10/25/19at 04:17; Start 10/18/19 at 15:30; Stop 11/21/19 at 09:45; Status DC Sodium Chloride 1,000 ml @ 1,000 mls/hr 1X ONCE IV Last administered on 10/18/19at 15:42; Start 10/18/19 at 15:45; Stop 10/18/19 at 16:44; Status DC Albumin Human 500 ml @ 125 mls/hr 1X ONCE IV ; Start 10/18/19 at 16:00; Stop 10/18/19 at 19:59; Status DC Albumin Human 500 ml @ 125 mls/hr PRN Q1HR PRN IV PER PROTOCOL; Start 10/18/19 at 15:45; Stop 11/21/19 at 09:52; Status DC Magnesium Sulfate 50 ml @ 25 mls/hr 1X ONCE IV Last administered on 10/18/19at 17:02; Start 10/18/19 at 16:30; Stop 10/18/19 at 18:29; Status DC Sodium Bicarbonate (Sodium Bicarb Adult 8.4% Syr) 50 meq STK-MED ONCE .ROUTE ; Start 10/18/19 at 16:20; Stop 10/18/19 at 16:20; Status DC Sodium Bicarbonate (Sodium Bicarb Adult 8.4% Syr) 100 meq 1X ONCE IV Last administered on 10/18/19at 17:07; Start 10/18/19 at 16:30; Stop 10/18/19 at 16:31 ; Status DC Sodium Bicarbonate 150 meq/Dextrose 1,150 ml @ 75 mls/hr 1X ONCE IV Last administered on 10/18/19at 20:02; Start 10/18/19 at 16:30; Stop 10/19/19 at 07:49; Status DC Sodium Chloride 80 meq/Potassium Chloride 30 meq/ Potassium Acetate 30 meq/ Magnesium Sulfate 14 meq/ Multivitamins 10 ml/Chromium/ Copper/Manganese/ Seleni/Zn 1 ml/ Insulin Human Regular 15 unit/ Total Parenteral Nutrition/Amino Acids/Dextrose/ Fat Emulsion Intravenous 1,920 ml @ 80 mls/hr TPN CONT IV Last administered on 10/19/19at 23:05; Start 10/19/19 at 22:00; Stop 10/20/19 at 21:59; Status DC Sodium Chloride 100 meq/Potassium Chloride 30 meq/ Potassium Acetate 30 meq/Magnesium Sulfate 12 meq/ Multivitamins 10 ml/Chromium/ Copper/Manganese/ Seleni/Zn 1 ml/ Insulin Human Regular 15 unit/ Total Parenteral Nutrition/Amino Acids/Dextrose/ Fat Emulsion Intravenous 1,920 ml @ 80 mls/hr TPN CONT IV Last administered on 10/20/19at 21:52; Start 10/20/19 at 22:00; Stop 10/21/19 at 21:59; Status DC Sodium Chloride 100 meq/Potassium Chloride 30 meq/ Potassium Acetate 30 meq/Magnesium Sulfate 12 meq/ Multivitamins 10 ml/Chromium/ Copper/Manganese/ Seleni/Zn 1 ml/ Insulin Human Regular 15 unit/ Total Parenteral Nutrition/Amino Acids/Dextrose/ Fat Emulsion Intravenous 1,920 ml @ 80 mls/hr TPN CONT IV Last administered on 10/21/19at 21:46; Start 10/21/19 at 22:00; Stop 10/22/19 at 21:59; Status DC Sodium Chloride 100 meq/Potassium Chloride 30 meq/ Potassium Acetate 30 meq/Magnesium Sulfate 12 meq/ Multivitamins 10 ml/Chromium/ Copper/Manganese/ Seleni/Zn 1 ml/ Insulin Human Regular 15 unit/ Total Parenteral Nutrition/Amino Acids/Dextrose/ Fat Emulsion Intravenous 1,800 ml @ 75 mls/hr TPN CONT IV Last administered on 10/22/19at 22:04; Start 10/22/19 at 22:00; Stop 10/23/19 at 21:59; Status DC Fentanyl Citrate 55 ml @ 0 mls/hr CONT PRN IV SEE COMMENTS Last administered on 10/24/19at 23:55; Start 10/22/19 at 13:00; Stop 10/27/19 at 17:28; Status DC Sodium Chloride 100 meq/Potassium Chloride 30 meq/ Potassium Acetate 30 meq/Magnesium Sulfate 12 meq/ Multivitamins 10 ml/Chromium/ Copper/Manganese/ Seleni/Zn 1 ml/ Insulin Human Regular 15 unit/ Total Parenteral Nutrition/Amino Acids/Dextrose/ Fat Emulsion Intravenous 1,680 ml @ 70 mls/hr TPN CONT IV Last administered on 10/23/19at 21:23; Start 10/23/19 at 22:00; Stop 10/24/19 at 21:59; Status DC Sodium Chloride 110 meq/Potassium Chloride 30 meq/ Potassium Acetate 30 meq/Magnesium Sulfate 15 meq/ Multivitamins 10 ml/Chromium/ Copper/Manganese/ Seleni/Zn 1 ml/ Insulin Human Regular 15 unit/ Total Parenteral Nutrition/Amino Acids/Dextrose/ Fat Emulsion Intravenous 1,680 ml @ 70 mls/hr TPN CONT IV Last administered on 10/24/19at 21:48; Start 10/24/19 at 22:00; Stop 10/25/19 at 21:59; Status DC Sodium Chloride 110 meq/Potassium Chloride 30 meq/ Potassium Acetate 30 meq/Magnesium Sulfate 15 meq/ Multivitamins 10 ml/Chromium/ Copper/Manganese/ Seleni/Zn 1 ml/ Insulin Human Regular 15 unit/ Total Parenteral Nutrition/Amino Acids/Dextrose/ Fat Emulsion Intravenous 1,680 ml @ 70 mls/hr TPN CONT IV Last administered on 10/25/19at 21:33; Start 10/25/19 at 22:00; Stop 10/26/19 at 21:59; Status DC Sodium Chloride 110 meq/Potassium Chloride 30 meq/ Potassium Acetate 30 meq/Magnesium Sulfate 15 meq/ Multivitamins 10 ml/Chromium/ Copper/Manganese/ Seleni/Zn 1 ml/ Insulin Human Regular 15 unit/ Total Parenteral Nutrition/Amino Acids/Dextrose/ Fat Emulsion Intravenous 1,680 ml @ 70 mls/hr TPN CONT IV Last administered on 10/26/19at 21:51; Start 10/26/19 at 22:00; Stop 10/27/19 at 21:59; Status DC Sodium Chloride 90 meq/Potassium Chloride 30 meq/ Potassium Acetate 30 meq/Magnesium Sulfate 15 meq/ Multivitamins 10 ml/Chromium/ Copper/Manganese/ Seleni/Zn 1 ml/ Insulin Human Regular 15 unit/ Total Parenteral Nutrition/Amino Acids/Dextrose/ Fat Emulsion Intravenous 1,680 ml @ 70 mls/hr TPN CONT IV Last administered on 10/27/19at 22:38; Start 10/27/19 at 22:00; Stop 10/28/19 at 21:59; Status DC Fentanyl Citrate 30 ml @ 0 mls/hr CONT PRN IV SEE I/O RECORD; Start 10/27/19 at 17:30; Stop 11/21/19 at 09:45; Status DC Fentanyl (Duragesic 12mcg/ Hr Patch) 1 patch Q3DAYS TD Last administered on 12/03/19at 08:38; Start 10/28/19 at 09:00 Sodium Chloride 90 meq/Potassium Chloride 30 meq/ Potassium Acetate 30 meq/Magnesium Sulfate 15 meq/ Multivitamins 10 ml/Chromium/ Copper/Manganese/ Seleni/Zn 1 ml/ Insulin Human Regular 15 unit/ Total Parenteral Nutrition/Amino Acids/Dextrose/ Fat Emulsion Intravenous 1,680 ml @ 70 mls/hr TPN CONT IV Last administered on 10/28/19at 21:59; Start 10/28/19 at 22:00; Stop 10/29/19 at 21:59; Status DC Sodium Chloride 90 meq/Potassium Chloride 30 meq/ Potassium Acetate 30 meq/Magnesium Sulfate 15 meq/ Multivitamins 10 ml/Chromium/ Copper/Manganese/ Seleni/Zn 1 ml/ Insulin Human Regular 15 unit/ Total Parenteral Nutrition/Amino Acids/Dextrose/ Fat Emulsion Intravenous 1,680 ml @ 70 mls/hr TPN CONT IV Last administered on 10/29/19at 21:35; Start 10/29/19 at 22:00; Stop 10/30/19 at 21:59; Status DC Vancomycin HCl (Vanco Per Pharmacy) 1 each PRN DAILY PRN MC SEE COMMENTS Last administered on 11/01/19at 02:46; Start 10/30/19 at 09:15; Stop 11/02/19 at 07:41; Status DC Ciprofloxacin/ Dextrose 200 ml @ 200 mls/hr Q12HR IV Last administered on 11/07/19at 21:02; Start 10/30/19 at 10:00; Stop 11/08/19 at 08:20; Status DC Vancomycin HCl 2 gm/Sodium Chloride 500 ml @ 250 mls/hr 1X ONCE IV Last administered on 10/30/19at 10:34; Start 10/30/19 at 10:00; Stop 10/30/19 at 11:59; Status DC Sodium Chloride 90 meq/Potassium Chloride 30 meq/ Potassium Acetate 30 meq/Magnesium Sulfate 15 meq/ Multivitamins 10 ml/Chromium/ Copper/Manganese/ Seleni/Zn 1 ml/ Insulin Human Regular 15 unit/ Total Parenteral Nutrition/Amino Acids/Dextrose/ Fat Emulsion Intravenous 1,680 ml @ 70 mls/hr TPN CONT IV Last administered on 10/30/19at 22:02; Start 10/30/19 at 22:00; Stop 10/31/19 at 21:59; Status DC Diphenhydramine HCl (Benadryl) 25 mg 1X ONCE IVP Last administered on 10/30/19at 14:26; Start 10/30/19 at 14:30; Stop 10/30/19 at 14:31; Status DC Vancomycin HCl 1.5 gm/Sodium Chloride 500 ml @ 250 mls/hr Q8H IV Last administered on 10/31/19at 03:08; Start 10/30/19 at 18:30; Stop 10/31/19 at 12:24; Status DC Vancomycin HCl (Vancomycin Trough Level) 1 each 1X ONCE MC Last administered on 10/31/19at 10:00; Start 10/31/19 at 10:00; Stop 10/31/19 at 10:01; Status DC Sodium Chloride 90 meq/Potassium Chloride 30 meq/ Potassium Acetate 30 meq/Magnesium Sulfate 15 meq/ Multivitamins 10 ml/Chromium/ Copper/Manganese/ Seleni/Zn 1 ml/ Insulin Human Regular 15 unit/ Total Parenteral Nutrition/Amino Acids/Dextrose/ Fat Emulsion Intravenous 1,680 ml @ 70 mls/hr TPN CONT IV Last administered on 10/31/19at 22:13; Start 10/31/19 at 22:00; Stop 11/01/19 at 21:59; Status DC Vancomycin HCl (Vancomycin Random Level) 1 each 1X ONCE MC Last administered on 11/01/19at 01:00; Start 11/01/19 at 01:00; Stop 11/01/19 at 01:01; Status DC Vancomycin HCl 1.5 gm/Sodium Chloride 500 ml @ 250 mls/hr Q12H IV Last administered on 11/01/19at 22:07; Start 11/01/19 at 10:00; Stop 11/02/19 at 07:41; Status DC Vancomycin HCl (Vancomycin Trough Level) 1 each 1X ONCE MC ; Start 11/02/19 at 09:30; Stop 11/02/19 at 09:31; Status Cancel Sodium Chloride 90 meq/Potassium Chloride 30 meq/ Potassium Acetate 30 meq/Magnesium Sulfate 15 meq/ Multivitamins 10 ml/Chromium/ Copper/Manganese/ Seleni/Zn 1 ml/ Insulin Human Regular 15 unit/ Total Parenteral Nutrition/Amino Acids/Dextrose/ Fat Emulsion Intravenous 1,680 ml @ 70 mls/hr TPN CONT IV Last administered on 11/01/19at 22:08; Start 11/01/19 at 22:00; Stop 11/02/19 at 21:59; Status DC Alteplase, Recombinant (Cathflo For Central Catheter Clearance) 1 mg 1X ONCE INT CAT Last administered on 11/01/19at 11:49; Start 11/01/19 at 11:00; Stop 11/01/19 at 11:01; Status DC Daptomycin 500 mg/ Sodium Chloride 50 ml @ 100 mls/hr Q24H IV Last administered on 11/11/19at 08:25; Start 11/02/19 at 09:00; Stop 11/11/19 at 08:38; Status DC Sodium Chloride 90 meq/Potassium Chloride 30 meq/ Potassium Acetate 30 meq/Magnesium Sulfate 15 meq/ Multivitamins 10 ml/Chromium/ Copper/Manganese/ Seleni/Zn 1 ml/ Insulin Human Regular 15 unit/ Total Parenteral Nutrition/Amino Acids/Dextrose/ Fat Emulsion Intravenous 1,680 ml @ 70 mls/hr TPN CONT IV Last administered on 11/02/19at 22:55; Start 11/02/19 at 22:00; Stop 11/03/19 at 21:59; Status DC Sodium Chloride 90 meq/Potassium Chloride 30 meq/ Potassium Acetate 30 meq/Magnesium Sulfate 15 meq/ Multivitamins 10 ml/Chromium/ Copper/Manganese/ Seleni/Zn 1 ml/ Insulin Human Regular 15 unit/ Total Parenteral Nutrition/Amino Acids/Dextrose/ Fat Emulsion Intravenous 1,680 ml @ 70 mls/hr TPN CONT IV Last administered on 11/03/19at 22:06; Start 11/03/19 at 22:00; Stop 11/04/19 at 21:59; Status DC Diphenhydramine HCl (Benadryl) 50 mg STK-MED ONCE .ROUTE ; Start 11/03/19 at 18:34; Stop 11/03/19 at 18:35; Status DC Diphenhydramine HCl (Benadryl) 25 mg 1X ONCE IM ; Start 11/03/19 at 18:45; Stop 11/03/19 at 18:46; Status DC Diphenhydramine HCl (Benadryl) 25 mg 1X ONCE IVP Last administered on at 18:56; Start 11/03/19 at 19:00; Stop 11/03/19 at 19:01; Status DC Alprazolam (Xanax) 0.5 mg PRN TID PRN PO ANXIETY / AGITATION Last administered on 11/10/19at 11:49; Start 11/04/19 at 08:00; Stop 11/10/19 at 15:54; Status DC Sodium Chloride 110 meq/Potassium Chloride 30 meq/ Potassium Acetate 30 meq/Magnesium Sulfate 15 meq/ Multivitamins 10 ml/Chromium/ Copper/Manganese/ Seleni/Zn 1 ml/ Insulin Human Regular 15 unit/ Total Parenteral Nutrition/Amino Acids/Dextrose/ Fat Emulsion Intravenous 1,680 ml @ 70 mls/hr TPN CONT IV Last administered on 11/04/19at 21:21; Start 11/04/19 at 22:00; Stop 11/05/19 at 21:59; Status DC Sodium Chloride 110 meq/Potassium Chloride 30 meq/ Potassium Acetate 30 meq/Magnesium Sulfate 15 meq/ Multivitamins 10 ml/Chromium/ Copper/Manganese/ Seleni/Zn 1 ml/ Insulin Human Regular 15 unit/ Total Parenteral Nutrition/Amino Acids/Dextrose/ Fat Emulsion Intravenous 1,680 ml @ 70 mls/hr TPN CONT IV Last administered on 11/05/19at 22:01; Start 11/05/19 at 22:00; Stop 11/06/19 at 21:59; Status DC Alteplase, Recombinant (Cathflo For Central Catheter Clearance) 1 mg 1X ONCE INT CAT Last administered on 11/06/19at 08:23; Start 11/06/19 at 08:15; Stop 11/06/19 at 08:16; Status DC Sodium Chloride 110 meq/Sodium Phosphate 10 mmol/ Potassium Chloride 30 meq/ Potassium Acetate 30 meq/Magnesium Sulfate 15 meq/ Multivitamins 10 ml/Chromium/ Copper/Manganese/ Seleni/Zn 1 ml/ Insulin Human Regular 15 unit/ Total Parenteral Nutrition/Amino Acids/Dextrose/ Fat Emulsion Intravenous 1,680 ml @ 70 mls/hr TPN CONT IV Last administered on 11/06/19at 22:03; Start 11/06/19 at 22:00; Stop 11/07/19 at 21:59; Status DC Sodium Chloride 120 meq/Sodium Phosphate 10 mmol/ Potassium Chloride 30 meq/ Potassium Acetate 30 meq/Magnesium Sulfate 15 meq/ Multivitamins 10 ml/Chromium/ Copper/Manganese/ Seleni/Zn 1 ml/ Insulin Human Regular 15 unit/ Total Parenteral Nutrition/Amino Acids/Dextrose/ Fat Emulsion Intravenous 1,680 ml @ 70 mls/hr TPN CONT IV Last administered on 11/07/19at 22:08; Start 11/07/19 at 22:00; Stop 11/08/19 at 21:59; Status DC Ceftazidime/ Avibactam 2.5 gm/ Sodium Chloride 100 ml @ 50 mls/hr Q8HRS IV Last administered on 11/09/19at 05:32; Start 11/08/19 at 14:00; Stop 11/09/19 at 07:48; Status DC Alteplase, Recombinant (Cathflo For Central Catheter Clearance) 1 mg 1X ONCE INT CAT Last administered on 11/08/19at 09:30; Start 11/08/19 at 09:30; Stop 11/08/19 at 09:31; Status DC Sodium Chloride 120 meq/Sodium Phosphate 10 mmol/ Potassium Chloride 30 meq/ Potassium Acetate 30 meq/Magnesium Sulfate 15 meq/ Multivitamins 10 ml/Chromium/ Copper/Manganese/ Seleni/Zn 1 ml/ Insulin Human Regular 15 unit/ Total Janett ral Nutrition/Amino Acids/Dextrose/ Fat Emulsion Intravenous 1,680 ml @ 70 mls/hr TPN CONT IV Last administered on 11/08/19at 22:11; Start 11/08/19 at 22:00; Stop 11/09/19 at 21:59; Status DC Iohexol (Omnipaque 300 Mg/ml) 75 ml 1X ONCE IV Last administered on 11/08/19at 11:30; Start 11/08/19 at 11:30; Stop 11/08/19 at 11:31; Status DC Info (CONTRAST GIVEN -- Rx MONITORING) 1 each PRN DAILY PRN MC SEE COMMENTS; Start 11/08/19 at 11:45; Stop 11/10/19 at 11:44; Status DC Alteplase, Recombinant (Cathflo For Central Catheter Clearance) 1 mg 1X ONCE INT CAT Last administered on 11/08/19at 12:17; Start 11/08/19 at 12:00; Stop 11/08/19 at 12:01; Status DC Cefepime HCl (Maxipime) 2 gm Q12HR IVP Last administered on 11/09/19at 20:53; Start 11/09/19 at 09:00; Stop 11/10/19 at 07:30; Status DC Sodium Chloride 120 meq/Sodium Phosphate 10 mmol/ Potassium Chloride 30 meq/ Potassium Acetate 30 meq/Magnesium Sulfate 15 meq/ Multivitamins 10 ml/Chromium/ Copper/Manganese/ Seleni/Zn 1 ml/ Insulin Human Regular 15 unit/ Total Parenteral Nutrition/Amino Acids/Dextrose/ Fat Emulsion Intravenous 1,680 ml @ 70 mls/hr TPN CONT IV Last administered on 11/09/19at 21:25; Start 11/09/19 at 22:00; Stop 11/10/19 at 21:59; Status DC Ceftazidime/ Avibactam 2.5 gm/ Sodium Chloride 250 ml @ 125 mls/hr Q8HRS IV Last administered on 11/23/19at 05:38; Start 11/10/19 at 08:00; Stop 11/23/19 at 08:20; Status DC Sodium Chloride 120 meq/Sodium Phosphate 10 mmol/ Potassium Chloride 30 meq/ Potassium Acetate 30 meq/Magnesium Sulfate 15 meq/ Multivitamins 10 ml/Chromium/ Copper/Manganese/ Seleni/Zn 1 ml/ Insulin Human Regular 15 unit/ Total Parenteral Nutrition/Amino Acids/Dextrose/ Fat Emulsion Intravenous 1,680 ml @ 70 mls/hr TPN CONT IV Last administered on 11/10/19at 22:35; Start 11/10/19 at 22:00; Stop 11/11/19 at 21:59; Status DC Alprazolam (Xanax) 0.5 mg PRN QID PRN PO ANXIETY / AGITATION Last administered on 12/02/19at 08:41; Start 11/10/19 at 16:00 Acetaminophen/ Hydrocodone Bitart (Lortab 5/325) 1 tab PRN Q4HRS PRN PO PAIN Last administered on 12/01/19at 12:25; Start 11/10/19 at 16:00 Sodium Chloride 120 meq/Sodium Phosphate 10 mmol/ Potassium Chloride 30 meq/ Potassium Acetate 30 meq/Magnesium Sulfate 15 meq/ Multivitamins 10 ml/Chromium/ Copper/Manganese/ Seleni/Zn 1 ml/ Insulin Human Regular 15 unit/ Total Parenteral Nutrition/Amino Acids/Dextrose/ Fat Emulsion Intravenous 1,680 ml @ 70 mls/hr TPN CONT IV Last administered on 11/11/19at 21:50; Start 11/11/19 at 22:00; Stop 11/12/19 at 21:59; Status DC Sodium Chloride 120 meq/Sodium Phosphate 10 mmol/ Potassium Chloride 30 meq/ Potassium Acetate 30 meq/Magnesium Sulfate 15 meq/ Multivitamins 10 ml/Chromium/ Copper/Manganese/ Seleni/Zn 1 ml/ Insulin Human Regular 15 unit/ Total Parenteral Nutrition/Amino Acids/Dextrose/ Fat Emulsion Intravenous 1,680 ml @ 70 mls/hr TPN CONT IV Last administered on 11/12/19at 22:14; Start 11/12/19 at 22:00; Stop 11/13/19 at 21:59; Status DC Daptomycin 500 mg/ Sodium Chloride 50 ml @ 100 mls/hr Q24H IV Last administered on 11/22/19at 09:20; Start 11/13/19 at 09:00; Stop 11/23/19 at 08:20; Status DC Sodium Chloride 120 meq/Sodium Phosphate 10 mmol/ Potassium Chloride 30 meq/ Potassium Acetate 30 meq/Magnesium Sulfate 15 meq/ Multivitamins 10 ml/Chromium/ Copper/Manganese/ Seleni/Zn 1 ml/ Insulin Human Regular 15 unit/ Total Parenteral Nutrition/Amino Acids/Dextrose/ Fat Emulsion Intravenous 1,680 ml @ 70 mls/hr TPN CONT IV ; Start 11/13/19 at 22:00; Stop 11/14/19 at 21:59; Status Cancel Amino Acids/ Glycerin/ Electrolytes 1,000 ml @ 80 mls/hr [id number] IV Last administered on 11/19/19at 18:10; Start 11/13/19 at 10:15; Stop 11/20/19 at 07:07; Status DC Iohexol (Omnipaque 300 Mg/ml) 50 ml 1X ONCE IJ ; Start 11/15/19 at 11:00; Stop 11/15/19 at 11:01; Status DC Sodium Chloride 500 ml @ 500 mls/hr 1X ONCE IV Last administered on 11/15/19at 18:30; Start 11/15/19 at 18:30; Stop 11/15/19 at 19:29; Status DC Lidocaine HCl (Buffered Lidocaine 1%) 3 ml 1X ONCE INJ ; Start 11/17/19 at 12:15; Stop 11/17/19 at 12:17; Status DC Fentanyl Citrate (Fentanyl 2ml Vial) 25 mcg PRN Q6HRS PRN IVP SEE INSTUCTIONS Last administered on 12/02/19at 13:33; Start 11/21/19 at 10:00 Sodium Chloride 1,000 ml @ 125 mls/hr Q8H IV Last administered on 11/21/19at 23:16; Start 11/21/19 at 23:21; Stop 11/22/19 at 09:23; Status DC Sodium Chloride 1,000 ml @ 350 mls/hr 1X ONCE IV Last administered on 11/21/19at 20:29; Start 11/21/19 at 20:30; Stop 11/21/19 at 23:21; Status DC Vitamin A/Vitamin D (Vitamin A & D Ointment) 1 ramu PRN Q1HR PRN TP SKIN PROTECTION Last administered on 12/01/19at 08:36; Start 11/22/19 at 09:15 Iohexol (Omnipaque 240 Mg/ml) 50 ml STK-MED ONCE .ROUTE ; Start 11/22/19 at 14:18; Stop 11/22/19 at 14:19; Status DC Lidocaine HCl (Buffered Lidocaine 1%) 3 ml STK-MED ONCE .ROUTE ; Start 11/22/19 at 14:19; Stop 11/22/19 at 14:19; Status DC Fentanyl Citrate (Fentanyl 2ml Vial) 100 mcg STK-MED ONCE .ROUTE ; Start 11/22/19 at 15:03; Stop 11/22/19 at 15:03; Status DC Lidocaine HCl (Buffered Lidocaine 1%) 5 ml 1X ONCE INJ Last administered on 11/22/19at 15:00; Start 11/22/19 at 15:45; Stop 11/22/19 at 15:46; Status DC Iohexol (Omnipaque 240 Mg/ml) 10 ml 1X ONCE IJ Last administered on 11/22/19at 15:00; Start 11/22/19 at 15:45; Stop 11/22/19 at 15:46; Status DC Multivitamins/ Minerals Therapeutic (Centrum Multivit-Mineral Liq) 5 ml DAILY PEG Last administered on 12/03/19at 08:37; Start 11/23/19 at 09:00 Alteplase, Recombinant 5 mg/ Sodium Chloride 30 ml @ 30 mls/hr 1X PRN IV SEE COMMENTS; Start 11/23/19 at 06:45; Status UNV Alteplase, Recombinant (Cathflo For Central Catheter Clearance) 1 mg 1X ONCE INT CAT Last administered on 11/23/19at 09:30; Start 11/23/19 at 07:00; Stop 11/23/19 at 07:01; Status DC Sodium Chloride 1,000 ml @ 125 mls/hr 1X ONCE IV Last administered on 11/23/19at 16:12; Start 11/23/19 at 14:30; Stop 11/23/19 at 22:29; Status DC Furosemide (Lasix) 40 mg 1X ONCE IVP Last administered on 11/23/19at 16:17; Start 11/23/19 at 14:30; Stop 11/23/19 at 14:33; Status DC Furosemide (Lasix) 40 mg [id number] IVP Last administered on 11/24/19at 13:51; Start 11/24/19 at 09:00; Stop 11/24/19 at 14:01; Status DC Sodium Chloride 1,000 ml @ 125 mls/hr 1X ONCE IV Last administered on 11/24/19at 08:20; Start 11/24/19 at 07:45; Stop 11/24/19 at 15:44; Status DC Calcitonin [place] (Miacalcin) 400 unit BID SQ Last administered on 11/24/19at 18:18; Start 11/24/19 at 18:00; Stop 11/25/19 at 15:56; Status DC Zoledronic Acid 100 ml @ 400 mls/hr 1X ONCE IV Last administered on 11/25/19at 13:04; Start 11/25/19 at 12:00; Stop 11/25/19 at 12:14; Status DC Metoprolol Tartrate (Lopressor Vial) 5 mg 1X ONCE IVP Last administered on 11/27/19at 10:54; Start 11/27/19 at 10:45; Stop 11/27/19 at 10:46; Status DC Cefepime HCl (Maxipime) 2 gm Q12HR IVP Last administered on 12/03/19at 08:55; Start 11/28/19 at 10:00 Metronidazole 100 ml @ 100 mls/hr Q12HR IV Last administered on 12/03/19at 08:38; Start 11/28/19 at 10:00 Sodium Chloride 1,000 ml @ 75 mls/hr [id number] IV Last administered on 11/29/19at 09:55; Start 11/28/19 at 18:45; Stop 11/30/19 at 11:12; Status DC Sodium Chloride 1,000 ml @ 1,000 mls/hr 1X ONCE IV Last administered on 11/29/19at 14:00; Start 11/29/19 at 14:00; Stop 11/29/19 at 14:59; Status DC Ringer's Solution 1,000 ml @ 175 mls/hr [id number] IV Last administered on 12/03/19at 11:35; Start 11/29/19 at 14:30 Sodium Bicarbonate (Sodium Bicarb Adult 8.4% Syr) 100 meq 1X ONCE IV Last administered on 11/29/19at 14:32; Start 11/29/19 at 14:30; Stop 11/29/19 at 14:35; Status DC Sodium Bicarbonate (Sodium Bicarb Adult 8.4% Syr) 50 meq STK-MED ONCE .ROUTE ; Start 11/29/19 at 14:30; Stop 11/29/19 at 14:30; Status DC Sodium Chloride 1,000 ml @ 1,000 mls/hr 1X ONCE IV Last administered on 11/30/19at 09:18; Start 11/30/19 at 08:45; Stop 11/30/19 at 09:44; Status DC Sodium Chloride 1,000 ml @ 1,000 mls/hr 1X ONCE IV Last administered on 11/30/19at 17:17; Start 11/30/19 at 17:15; Stop 11/30/19 at 18:14; Status DC Sodium Chloride 1,000 ml @ 1,000 mls/hr 1X ONCE IV Last administered on 12/01/19at 09:39; Start 12/01/19 at 09:45; Stop 12/01/19 at 10:44; Status DC Sodium Chloride 1,000 ml @ 1,000 mls/hr 1X ONCE IV Last administered on 12/01/19at 17:36; Start 12/01/19 at 18:00; Stop 12/01/19 at 18:59; Status DC Sodium Chloride 1,000 ml @ 1,000 mls/hr 1X ONCE IV Last administered on 12/02/19at 13:34; Start 12/02/19 at 13:00; Stop 12/02/19 at 13:59; Status DC Calcium Gluconate (Calcium Gluconate) 1,000 mg 1X ONCE IVP Last administered on 12/02/19at 15:25; Start 12/02/19 at 14:45; Stop 12/02/19 at 14:53; Status DC Potassium Chloride/Water 100 ml @ 100 mls/hr Q1H IV Last administered on 12/02/19at 17:09; Start 12/02/19 at 15:00; Stop 12/02/19 at 16:59; Status DC Magnesium Sulfate 50 ml @ 25 mls/hr 1X ONCE IV Last administered on 12/02/19at 15:24; Start 12/02/19 at 15:00; Stop 12/02/19 at 16:59; Status DC Sodium Bicarbonate 150 meq/Sterile Water 1,150 ml @ 500 mls/hr 1X ONCE IV Last administered on 12/02/19at 15:23; Start 12/02/19 at 15:00; Stop 12/02/19 at 17:17; Status DC Active Scripts Active Reported Bisoprolol Fumarate 5 Mg Tablet 10 Mg PO DAILY Vitals/I & O Vital Sign - Last 24 Hours 12/02/19 12/02/19 12/02/19 12/02/19 13:33 14:03 15:16 16:21 Temp 97.5 97.5 Pulse 130 Resp 20 18 36 B/P (MAP) 135/62 (86) Pulse Ox 97 O2 Delivery Nasal Cannula Nasal Cannula Nasal Cannula Nasal Cannula O2 Flow Rate 2.0 2.0 2.0 2.0 12/02/19 12/02/19 12/02/19 12/02/19 19:37 20:00 20:30 23:14 Temp 97.7 98.3 97.7 98.3 Pulse 126 126 Resp 21 22 B/P (MAP) 124/67 (86) 119/68 (85) Pulse Ox 97 97 O2 Delivery Nasal Cannula Nasal Cannula Nasal Cannula Nasal Cannula O2 Flow Rate 2.0 2.0 2.0 2.0 8/15/20 8/15/20 8/15/20 8/15/20 03:07 03:25 07:00 07:55 Temp 97.8 97.9 97.8 97.9 Pulse 121 121 Resp 19 20 B/P (MAP) 107/63 (78) 98/48 (65) Pulse Ox 99 99 O2 Delivery Nasal Cannula Nasal Cannula Nasal Cannula Nasal Cannula O2 Flow Rate 2.0 2.0 2.0 2.0 12/03/19 12/03/19 12/03/19 08:38 10:59 11:44 Temp 97.8 97.8 Pulse 127 Resp 20 B/P (MAP) 117/68 (84) Pulse Ox 97 98 O2 Delivery Tracheal Collar Nasal Cannula Nasal Cannula O2 Flow Rate 2.0 2.0 Intake and Output 12/02/19 12/02/19 12/03/19 15:00 23:00 07:00 Intake Total 0 ml Output Total 225 ml 750 ml 1000 ml Balance -225 ml -750 ml -1000 ml Justicifation of Admission Dx: Justifications for Admission: Justification of Admission Dx: Yes MARCI SHAH MD Dec 03, 2019 12:59
[2019-12-03] MEDS: CYCLOBENZAPRINE 10 MG TABLET. PO PRN (14:25)
[2019-12-03] MEDS: HYDROcodone/APAP 5/325MG 1 TAB TABLET PO PRN (14:27)
[2019-12-03] MEDS: ONDANSETRON PF 4 MG/2 ML VIAL. IV PRN (14:27)
[2019-12-03 15:00] VITALS: BP 124/69
[2019-12-03] MEDS: ALBUMIN HUMAN 25% 100 ML IV SCH (18:40)
[2019-12-03 19:30] VITALS: BP 130/73
[2019-12-03 23:34] VITALS: BP 148/80
[2019-12-04 03:45] VITALS: BP 117/59
[2019-12-04] MEDS: ACETAMINOPHEN 650 MG/20.3 ML SOLUTION. PEG PRN ×2 (04:19→21:02)
[2019-12-04] MEDS: IPRATRPIUM/ALBUTEROL 0.5/2.5MG 3 ML NEBU. NEB SCH ×7 (04:29→23:50)
[2019-12-04] MEDS: ALBUMIN HUMAN 25% 100 ML IV SCH ×2 (05:46→18:03)
[2019-12-04 05:47] LABS: BASO % 0 % (0-3); EOS # 0.1 x10^3/uL (0.0-0.7); EOS % 0 % (0-3); HEMATOCRIT 26.4 % (36.0-47.0); HEMOGLOBIN 8.2 g/dL (12.0-15.5); LYMPH % 12 % (24-48); MEAN CORPUSCULAR HEMOGLOBIN 28 pg (25-35); MEAN CORPUSCULAR HGB CONC 31 g/dL (31-37); MEAN CORPUSCULAR VOLUME 89 fL (79-100); MONO # 1.1 x10^3/uL (0.0-1.1); MONO % 7 % (0-9); NEUT # 13.3 x10^3/uL (1.8-7.7); NEUT % 81 % (31-73); PLATELET COUNT 359 x10^3/uL (140-400); RED BLOOD COUNT 2.97 x10^6/uL (3.50-5.40); RED CELL DISTRIBUTION WIDTH 20.4 % (11.5-14.5); WHITE BLOOD COUNT 16.5 x10^3/uL (4.0-11.0)
[2019-12-04 05:53] LABS: CALCIUM 7.4 mg/dL (8.5-10.1); CREATININE 2.1 mg/dL (0.6-1.0); POTASSIUM 3.2 mmol/L (3.5-5.1)
[2019-12-04] MEDS: INSULIN LISPRO 300 UNITS/3 ML VIAL. SQ SCH ×4 (06:00→18:00)
[2019-12-04 07:00] VITALS: BP 101/48
[2019-12-04] MEDS: ACETYLCYSTEINE 20% for RESP TX 600 MG/3 ML. NEB SCH ×2 (07:33→20:00)
[2019-12-04] MEDS: PANTOPRAZOLE IV PUSH 40 MG VIAL. IVP SCH (09:30)
[2019-12-04] MEDS: MULTIVITAMINS,THERAPEUTIC 5 ML ORAL LIQUID. PEG SCH (09:30)
[2019-12-04] MEDS: ENOXAPARIN 40 MG/0.4 ML SYRINGE. SQ SCH (09:31)
[2019-12-04] MEDS: CEFEPIME HCL IV Push 2 GM VIAL. IVP SCH (09:32)
--- NOTE | 2019-12-04 09:44 | PDOC ---
Infectious Disease Note Subjective Subjective Unresponsive Fever 101.3 this morning + diarrhea ROS ROS unobtainable Vital Sign Vital Signs Vital Signs Date Time Temp Pulse Resp B/P (MAP) Pulse Ox O2 Delivery O2 Flow Rate FiO2 12/04/19 07:33 97 Nasal Cannula 2.0 12/04/19 07:00 98.1 123 26 101/48 (65) 98.1 Physical Exam PHYSICAL EXAM GENERAL: Propped up in bed, her eyes are wide open, upward gaze, unresponsive to verbal, + visual threat HEENT: Pupils equal, oral cavity dry. NECK: Tracheostomy LUNGS: Diminished aeration bases, HEART: S1, S2, ABDOMEN: Distended, bowel sounds hypoactive, soft, GJ drain present, drainage bag in place, + rectal tube : Lind in place EXTREMITIES: Genralized edema, + mottling SKIN: warm touch. NEURO: - Eyes are open, unresponsive to verbal and tactile stimuli RUE PICC site without signs of complications. PIV s clean Labs Lab Laboratory Tests Test 12/03/19 12:38 12/03/19 16:46 12/04/19 00:15 12/04/19 05:20 Glucose (Fingerstick) 167 mg/dL (70-99) 169 mg/dL (70-99) 132 mg/dL (70-99) White Blood Count 16.5 x10^3/uL (4.0-11.0) Red Blood Count 2.97 x10^6/uL (3.50-5.40) Hemoglobin 8.2 g/dL (12.0-15.5) Hematocrit 26.4 % (36.0-47.0) Mean Corpuscular Volume 89 fL (79-100) Mean Corpuscular Hemoglobin 28 pg (25-35) Mean Corpuscular Hemoglobin Concent 31 g/dL (31-37) Red Cell Distribution Width 20.4 % (11.5-14.5) Platelet Count 359 x10^3/uL (140-400) Neutrophils (%) (Auto) 81 % (31-73) Lymphocytes (%) (Auto) 12 % (24-48) Monocytes (%) (Auto) 7 % (0-9) Eosinophils (%) (Auto) 0 % (0-3) Basophils (%) (Auto) 0 % (0-3) Neutrophils # (Auto) 13.3 x10^3/uL (1.8-7.7) Lymphocytes # (Auto) 2.0 x10^3/uL (1.0-4.8) Monocytes # (Auto) 1.1 x10^3/uL (0.0-1.1) Eosinophils # (Auto) 0.1 x10^3/uL (0.0-0.7) Basophils # (Auto) 0.0 x10^3/uL (0.0-0.2) Sodium Level 152 mmol/L (136-145) Potassium Level 3.2 mmol/L (3.5-5.1) Chloride Level 120 mmol/L (98-107) Carbon Dioxide Level 18 mmol/L (21-32) Anion Gap 14 (6-14) Blood Urea Nitrogen 58 mg/dL (7-20) Creatinine 2.1 mg/dL (0.6-1.0) Estimated GFR (Cockcroft-Gault) 25.0 Glucose Level 157 mg/dL (70-99) Calcium Level 7.4 mg/dL (8.5-10.1) Micro Objective Assessment Patient with prolonged hospitalization more than 3 months Multiple medical problems Multiple surgical procedures Intermittent fevers Pyruia from 11/27 S/P Exp. 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 parapsilosis & PSAE (I-merrem/ceftazidime/AZT/cefepime), treated Leukocytosis - trending up Loose stool on tube feed - C. diff neg 11/11, 11/29 Anemia Acute gallstone pancreatitis with persistent necrosis - 07/27. CT A/P Increased ascites. 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 status post KAYLIN drain placement; C. parapsilosis. s/p drain 08/23 + yeast & high amylase; s/p additional drain on 08/25. Drains removed. -08/23. fluid devyn parapsilosis fluid, amylase high - 09/23 showed multiple pseudocysts, slight larger on the right. s/p drains x 3, 09/24. PSAE ([facility]-R Cefepime, Zosyn ALEXANDRA < 64) and yeast, -09/24 s/p drain replacement x 3; fluid cult PSAE ([facility]), yeast; treated -10/29 CT A/P shows smaller fluid collections. -722 CT abdomen and pelvis drains in place Ascites s/p paracentesis 08/02 & 08/23. C. parapsilosis Cholelithiasis with thickening of the gallbladder wall. JUANA with electrolyte imbalances. h/o HD Acute hypoxic resp failure. trach/vent. 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 Lind changed Diarrhea C. difficile negative Encephalopathy Plan Plan of Care cefepime, renal dosing as needed and flagyl 11/27, C diff neg 11/29 BC 11/27 negative Monitor labs/temp Lind changed 11/28 Nystatin to groin Right upper extremity PICC line placed 11/17 Wound care /drain management as directed Contact isolation for [facility] group home prognosis poor D/w nursing The patient was seen and examined at the bedside. The chart was reviewed. The case was discussed. Agree with the plan of care. Patient had temperature yesterday of 101 WBC elevated at 16 K Will change regimen to daptomycin, Merrem and micafungin Repeat blood cultures FRANCA HOBSON APRN Dec 04, 2019 09:44 YUNIOR JONES MD Dec 04, 2019 14:49
--- NOTE | 2019-12-04 10:04 | NUR ---
Called to reconsult test baker due to low urine output and elevation in creatinine.
[2019-12-04 11:07] LABS: % BANDS 26 % (0-9); % EOS 1 % (0-5); % LYMPHS 12 % (24-48); % MONOS 4 % (0-10); % MYELOS 1 % (0-0); % SEGS 56 % (35-66); NUCLEATED RBC 1
[2019-12-04 11:09] LABS: ANISOCYTOSIS PRESENT; PLT ESTIMATE ADEQUATE (ADEQUATE); POIKILOCYTOSIS PRESENT; POLYCHROMASIA PRESENT; TOXIC GRANULATION SLIGHT
[2019-12-04 11:20] VITALS: BP 108/57
--- NOTE | 2019-12-04 12:56 | PDOC ---
[employer] PROGRESS NOTE Date of Service DOS: DATE: 12/04/19 TIME: 12:51 Chief Complaint Chief Complaint S/P Exp. 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 parapsilosis & PSAE 11/12 (I-merrem/ceftazidime/AZT/cefepime)) Leucocytosis Fevers, intermittent Acute gallstone pancreatitis with persistent necrosis Acute hypoxic Respiratory failure required mechanical ventilation Tracheostomy Bilateral pleural effusions/pulm edema s/p Throacentesis on 10/03/2019 HTN Intractable pain Intractable nausea Covid 19 negative Acute on chronic anemia Abd distention - U/S and CT reviewed s/p 0.4 L of opaque, debris-containing a scites was removed 08/23 Gallstone pancreatitis with necrosis. -CT A/P 09/23 showed multiple pseudocysts, slight larger on the right. s/p drains x 3, 09/24. + PSAE (MDRO-R Cefepime, Zosyn ALEXANDRA < 64) and yeast, -s/p drain 08/14. C. parapsilosis. s/p drain 08/23 + yeast & high amylase; s/p additional drain on 08/25. Drains removed. Ascites s/p paracentesis 08/02 & 08/23. C. parapsilosis JUANA. off HD. A large fluid collection in the pancreatic bed has slightly decreased in size, described below, the pancreas itself is difficult to visualize, which could be due to necrosis or obscuration of pancreatic parenchyma from the surrounding fluid collection.10/02 - 08/14 status post KAYLIN drain placement + C paropsilosis. s/p additional drains 08/25 Hypocalcemia Prediabetes s/p trach Hyperglycemia Severe protein-caloric malnutrition Extensive retroperitoneal fluid collections persist. Percutaneous drains remain within the collections in both paracolic gutters. These communicate with additional pelvic and peripancreatic collections. History of Present Illness History of Present Illness 12/04/2019 Patient seen and examined, appears encephalopathic Patient is largely nonverbal Discussed with RN Chart reviewed 12/02 Patient without complaints. Per nurse reports some hypotension this am that improved spontaneously. 12/01 Will check Hb/Hct levels today in response to prbc; patient largely nonverbal but denies pain 11/30, increased IV fluid, cont current bolusing daily , LR increased cr better, Hgb worse today, will give 1 u PRBC 11/29. pain in legs, BP better, some better Urine outptu 11/28. dyspnea and mild distress worsened this AM. but was able to walk some with PT later. still HR 140 sometimes, 11/28/2019 Patient seen and examined Afebrile Resting in NAD Tachycardic and tachypneic overnight Recurring leukocytosis, 23.0 Chart reviewed Discussed with RN 11/26: Afebrile. Calcium down to 10.1. Little more tachycardic today with some more secretions. No O2 requirements. Does not wish to wear her speaking valve. Will check CXR. 11/25: Afebrile, weak, having more secretions not wearing a speaking valve today. WBC 10, Hb 8.8, NA 144, and K3.7, BUN 12, CR 0.5, calcium down to 10.3. After zoledronic acid 11/24: Had a rash after calcitonin injection. Discussed with nephrology with her calcium moving from 11.3-10.9 will give IV bisphosphonate today, zoledronic acid. 11/23: Hb stable. Afebrile. Weak. Calcium increased. Shortness of breath is improving. Plan for calcitonin today, lasix, and saline 11/22: Hemoglobin abnormally low on repeat has been stable 7.2. Calcium up to 10.9. She is able to work with PT, she is asking to eat. Social work is been having difficulties with both of her daughters completing the financial aspect of disability paperwork which is been prolonging her stay over the past 5 months. Plan to check PTH and to treat hypercalcemia with 1 L normal saline 40 mg of IV Lasix and repeat labs in a.m. 11/21: Not wishing to wear her speaking valve. J tube having some difficulties. Afebrile. Jamaal bedside to aid her. transferred from ICU today 11/20: No overnight events. Calcium 10.7 on AM labs. She is still a bit slow to to respond, but follows commands well. Does not want speaking valve with me. Pain is better controlled in her abdomen. Wound care to see today. Will check liver function and phos levels given her calcium elevation. 11/19: Patient seen and examined bedside. Positive fluid balance in the past 24 hours. Patient's chart, labs, images were reviewed and discussed with RN 11/18: No acute events overnight. Seen and examined at bedside. Patient had a fever 100.2. Negative fluid balance of 150 cc. Patient's chart, labs, images were reviewed and discussed with RN 11/17: Patient seen and examined at bedside. No acute events overnight. Positive fluid balance 633. Patient's chart, labs, images were reviewed and discussed with RN 11/16: Patient seen and examined bedside. No acute events overnight. Patient's chart, labs, images were reviewed and discussed with RN 11/14: Patient seen and examined bedside. Patient appears to be in no obvious pain. All drains have been adequately draining. Patient continues to be on TPN. Chart labs and imaging was reviewed. Negative fluid balance of 270 cc 11/13:Patient seen and examined in the ICU. Patient still requires extensive care. 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 Chart, labs, imaging was reviewed. UOP with + 500cc balance. 11/11: Patient seen in and examined in the ICU. She is still extremely critically ill. Appears weak, frail, and pale. Better color today with improved eye contact and expression. Discussed with RN. Chart reviewed 11/07: Patient seen and examined in the ICU, She is still extremely critically ill, Appears extremely weak frail and pale, Discussed with RN, Chart reviewed Vitals/I&O Vitals/I&O: Vital Signs Date Time Temp Pulse Resp B/P (MAP) Pulse Ox O2 Delivery O2 Flow Rate FiO2 12/04/19 11:29 97 Nasal Cannula 2.0 12/04/19 11:20 97.8 131 28 108/57 (74) 97.8 I & O 12/03/19 12/03/19 12/04/19 15:00 23:00 07:00 Intake Total 200 ml 200 ml 200 ml Output Total 1375 ml 1025 ml Balance 200 ml -1175 ml -825 ml Physical Exam Physical Exam: GENERAL: Propped up in bed, her eyes are wide open, upward gaze, unresponsive to verbal, + visual threat HEENT: Pupils equal, oral cavity dry. NECK: Tracheostomy LUNGS: Diminished aeration bases, HEART: S1, S2, ABDOMEN: Distended, bowel sounds hypoactive, soft, GJ drain present, drainage bag in place, + rectal tube : Lind in place EXTREMITIES: Genralized edema, + mottling SKIN: warm touch. NEURO: - Eyes are open, unresponsive to verbal and tactile stimuli RUE PICC site without signs of complications. PIV s clean General: Cooperative, mild distress Heart: Normal S1, Normal S2, Other Lungs: Clear Abdomen: Normal bowel sounds, Soft, No tenderness Extremities: No clubbing, No cyanosis, Other (Diffuse edema) Skin: No breakdown Labs Labs: Laboratory Tests Test 12/03/19 16:46 12/04/19 00:15 12/04/19 05:20 12/04/19 11:47 Glucose (Fingerstick) 169 mg/dL (70-99) 132 mg/dL (70-99) 195 mg/dL (70-99) White Blood Count 16.5 x10^3/uL (4.0-11.0) Red Blood Count 2.97 x10^6/uL (3.50-5.40) Hemoglobin 8.2 g/dL (12.0-15.5) Hematocrit 26.4 % (36.0-47.0) Mean Corpuscular Volume 89 fL (79-100) Mean Corpuscular Hemoglobin 28 pg (25-35) Mean Corpuscular Hemoglobin Concent 31 g/dL (31-37) Red Cell Distribution Width 20.4 % (11.5-14.5) Platelet Count 359 x10^3/uL (140-400) Neutrophils (%) (Auto) 81 % (31-73) Lymphocytes (%) (Auto) 12 % (24-48) Monocytes (%) (Auto) 7 % (0-9) Eosinophils (%) (Auto) 0 % (0-3) Basophils (%) (Auto) 0 % (0-3) Neutrophils # (Auto) 13.3 x10^3/uL (1.8-7.7) Lymphocytes # (Auto) 2.0 x10^3/uL (1.0-4.8) Monocytes # (Auto) 1.1 x10^3/uL (0.0-1.1) Eosinophils # (Auto) 0.1 x10^3/uL (0.0-0.7) Basophils # (Auto) 0.0 x10^3/uL (0.0-0.2) Segmented Neutrophils % 56 % (35-66) Band Neutrophils % 26 % (0-9) Lymphocytes % 12 % (24-48) Monocytes % 4 % (0-10) Eosinophils % 1 % (0-5) Myelocytes % 1 % (0-0) Nucleated Red Blood Cells 1 Toxic Granulation Slight Platelet Estimate Adequate (ADEQUATE) Polychromasia Present Poikilocytosis Present Anisocytosis Present Sodium Level 152 mmol/L (136-145) Potassium Level 3.2 mmol/L (3.5-5.1) Chloride Level 120 mmol/L (98-107) Carbon Dioxide Level 18 mmol/L (21-32) Anion Gap 14 (6-14) Blood Urea Nitrogen 58 mg/dL (7-20) Creatinine 2.1 mg/dL (0.6-1.0) Estimated GFR (Cockcroft-Gault) 25.0 Glucose Level 157 mg/dL (70-99) Calcium Level 7.4 mg/dL (8.5-10.1) Assessment and Plan Assessmemt and Plan Problems Medical Problems: (1) Acute pancreatitis Status: Acute (2) Cholelithiasis Status: Acute ASSESSMENT S/P Exp. 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 para psilosis & PSAE 11/12 (I-merrem/ceftazidime/AZT/cefepime)) Leucocytosis Fevers, intermittent Acute gallstone pancreatitis with persistent necrosis Acute hypoxic Respiratory failure required mechanical ventilation Tracheostomy Bilateral pleural effusions/pulm edema s/p Throacentesis on 10/03/2019 HTN Intractable pain Intractable nausea Covid 19 negative Acute on chronic anemia Abd distention - U/S and CT reviewed s/p 0.4 L of opaque, debris-containing ascites was removed 08/23 Gallstone pancreatitis with necrosis. -CT A/P 09/23 showed multiple pseudocysts, slight larger on the right. s/p drains x , 09/24. + PSAE (MDRO-R Cefepime, Zosyn ALEXANDRA < 64) and yeast, -s/p drain 08/14. C. parapsilosis. s/p drain 08/23 + yeast & high amylase; s/p additional drain on 08/25. Drains removed. Ascites s/p paracentesis 08/02 & 08/23. C. parapsilosis JUANA. off HD. A large fluid collection in the pancreatic bed has slightly decreased in size, described below, the pancreas itself is difficult to visualize, which could be due to necrosis or obscuration of pancreatic parenchyma from the surrounding fluid collection.10/02 - 08/14 status post KAYLIN drain placement + C paropsilosis. s/p additional drains 08/25 Hypocalcemia Prediabetes s/p trach Hyperglycemia Severe protein-caloric malnutrition Extensive retroperitoneal fluid collections persist. Percutaneous drains remain within the collections in both paracolic gutters. These communicate with additional pelvic and peripancreatic collection PLAN PT/OT Trend labs Continue current care DVT prophylaxis Full code Subspecialty input appreciated Comment Review of Relevant I have reviewed the following items kolby (where applicable) has been applied. Medications: Current Medications Medications (Trade) Dose Ordered Sig/Yvon Route PRN Reason Start Time Stop Time Status Last Admin Dose Admin Albumin Human 100 ml @ 100 mls/hr Q12H IV 12/03/19 18:00 12/04/19 05:46 Ringer's Solution 1,000 ml @ 75 mls/hr [id number] IV 12/03/19 23:00 12/03/19 22:30 Acetaminophen (Tylenol) 650 mg PRN Q6HRS PRN PEG MILD PAIN / TEMP > 100.3'F 12/04/19 04:15 12/04/19 04:19 Justicifation of Admission Dx: Justifications for Admission: Justification of Admission Dx: Yes BEBO KIRBY III DO Dec 04, 2019 12:56
[2019-12-04 14:45] VITALS: BP 100/63
[2019-12-04] MEDS: IV RINGERS,LACTATED 1000ML 1,000 ML IV SCH (14:56)
[2019-12-04] MEDS: HYDROcodone/APAP 5/325MG 1 TAB TABLET PO PRN (14:56)
[2019-12-04] MEDS ORDERED: MICAFUNGIN 100 MG in IV DEXTROSE 5% 100ML 100 ML IV SCH (15:00)
[2019-12-04] MEDS ORDERED: DAPTOmycin (GENERIC) IVPB 480 MG in IV NORMAL SALINE 50ML 50 ML IV SCH (16:00)
[2019-12-04] MEDS: MEROPENEM 500 MG in IV NORMAL SALINE 50ML 50 ML IV SCH (16:34)
[2019-12-04 19:35] VITALS: BP 125/100
--- NOTE | 2019-12-04 21:50 | NUR ---
While turning patient after meds this evening, RN noticed that the fluid draining from pt's right abdomen had changed from dark green to dark red. Most likely now draining bloody fluids. Mottling was also noted on pt's arms and legs, and heart rate increased from 130's on 12/02 pai gow manager to 140's-160's on 12/[address] Dos Santos paged at this time and updated on pt's condition and new findings. No new orders at this time, Dr. Dos Santos also updated on pt's family situation regarding DPOA. Will continue to monitor.
[2019-12-04 23:00] VITALS: BP 112/97
[2019-12-04 23:47] LABS: HEMATOCRIT 21.3 % (36.0-47.0)
[2019-12-04 23:49] LABS: HEMOGLOBIN 6.3 g/dL (12.0-15.5)
[2019-12-04 23:51] LABS: PROTHROMBIN TIME PATIENT 34.6 SEC (11.7-14.0)
[2019-12-05] VITALS (22 sets, daily range): BP systolic 71–111; BP diastolic 34–67
[2019-12-05] MEDS: MEROPENEM 500 MG in IV NORMAL SALINE 50ML 50 ML IV SCH ×3 (00:10→12:54)
[2019-12-05 00:29] LABS: BASE EXCESS ABG -19 mmol/L (-3-3); CORRECTED PCO2 ABG 19 mmHg; CORRECTED PH ABG 7.21; CORRECTED PO2 ABG 112 mmHg; HCO3 ABG 7 mmol/L (21-28); SAT O2 ABG 97 % (92-99)
[2019-12-05 00:35] LABS: FIO2 ABG 40; PCO2 ABG 18 mmHg (35-46); PO2 ABG 107 mmHg (75-108)
[2019-12-05] MEDS ORDERED: diphenhydrAMINE ORAL ELIXIR 12.5 MG/5 ML ML PO PRN (01:30)
[2019-12-05] MEDS: IV RINGERS,LACTATED 1000ML 1,000 ML IV SCH ×2 (01:40→13:29)
[2019-12-05] MEDS ORDERED: PHYTONADIONE 10 MG/ML AMPUL. SQ ONE (02:00)
[2019-12-05] MEDS ORDERED: SODIUM BICARBONATE VIAL 50 MEQ in IV 1/2 NORMAL SALINE 1,000 ML IV ONE (02:00)
[2019-12-05] MEDS: IPRATRPIUM/ALBUTEROL 0.5/2.5MG 3 ML NEBU. NEB SCH ×5 (03:50→20:36)
[2019-12-05] MEDS ORDERED: SODIUM BICARB ADULT 8.4% 50 MEQ/50 ML DISP.SYRIN. ONE (03:55)
[2019-12-05] MEDS ORDERED: SODIUM BICARB ADULT 8.4% 50 MEQ/50 ML DISP.SYRIN. IV ONE (04:15)
[2019-12-05] MEDS ORDERED: SODIUM BICARB PED 8.4% 10 MEQ/10 ML DISP.SYRIN. IV ONE (04:15)
[2019-12-05] MEDS: INSULIN LISPRO 300 UNITS/3 ML VIAL. SQ SCH ×3 (06:00→12:00)
[2019-12-05] MEDS: ALBUMIN HUMAN 25% 100 ML IV SCH (06:05)
[2019-12-05 07:02] LABS: ALBUMIN/GLOBULIN RATIO 0.7 (1.0-1.7); CALCIUM 7.8 mg/dL (8.5-10.1); CREATININE 2.5 mg/dL (0.6-1.0); GFR 20.5; POTASSIUM 3.6 mmol/L (3.5-5.1); TOTAL BILIRUBIN 0.7 mg/dL (0.2-1.0); TOTAL PROTEIN 4.8 g/dL (6.4-8.2)
[2019-12-05 07:20] LABS: PROTHROMBIN TIME PATIENT 27.9 SEC (11.7-14.0)
--- NOTE | 2019-12-05 07:32 | NUR ---
This RN spoke with adriana Zheng to inform of patient transfer to ICU due to likely bleeding. Johnson, ICU charger notified of family contact. Marce states that the phone number [phone] we have for adriana Green is a good phone number and that she will notify Norma.
--- NOTE | 2019-12-05 07:54 | RAD ---
CT ABDOMEN PELVIS WO CONTRAST INDICATION: Reason: bleeding from abd drain / Spl. Instructions: / History: EXAM: Noncontrast CT of the abdomen and pelvis. Coronal and sagittal reformatted images were performed. PQRS compliance statement: One or more of the following individualized dose reduction techniques were utilized for this examination: 1. Automated exposure control 2. Adjustment of the mA and/or kV according to patient size 3. Use of iterative reconstruction technique COMPARISON: 11/08/2019 FINDINGS: Lower chest: Small bilateral pleural effusions. Left basilar consolidation ABDOMEN: Redemonstration of extensive bilateral retroperitoneal and peritoneal collections, slightly increased in the left subdiaphragmatic region but otherwise similar in configuration to prior exams. Scattered areas of high attenuation material within these collections consistent with acute blood products. The noncontrast liver is homogeneous in attenuation. Pancreas is contracted. Normal caliber bile ducts. Normal spleen. Persistent fluid around and partially securing the pancreas. Normal adrenal glands. No opaque urinary calculi. Unchanged mild right hydronephrosis. Percutaneous gastrojejunostomy tube. No dilated bowel Normal caliber abdominal aorta. No lymphadenopathy in the abdomen or pelvis. Urinary bladder is decompressed by Lind catheter. No acute osseous abnormality. IMPRESSION: Redemonstration of extensive bilateral retroperitoneal and peritoneal collections, slightly increased in the left subdiaphragmatic region but otherwise similar in configuration to prior exams. Scattered areas of high attenuation material within these collections consistent with acute blood products. Electronically signed by: Bry Michel MD (12/05/2019 7:51 AM) [id number]
[2019-12-05] MEDS: ACETYLCYSTEINE 20% for RESP TX 600 MG/3 ML. NEB SCH ×2 (08:00→20:36)
[2019-12-05] MEDS: ENOXAPARIN 40 MG/0.4 ML SYRINGE. SQ SCH (08:00)
--- NOTE | 2019-12-05 08:00 | NUR ---
This RN assisted response to rapid called by the patient's RN. This RN assisted RN Haydee with pulling, scanning, and administering medication ordered by primary MD, taking vital signs to establish trending, and blood and blood product administration. Communication with Material Spreader in regards this patient and possible ICU transfer. RT Spangler and Amada also responded to bedside.
--- NOTE | 2019-12-05 08:22 | NUR ---
While turning and cleaning pt with charge master specialist at approx 2130, this RN noted that pt's RLQ abd drain had blood in it. Pt was also noted to have mottling of skin that was not present the previous security shift manager and pt's resting HR had increased. Dr. Dos Santos paged at 2139 and updated to pt's status, no new orders at this time. BP at shift change 125/100 While turning and changing pt during 2300 vitals, more blood collection and clotting noted at this drain site. No blood noted in G-tube drain, rectal tube, or Lind catheter bag. Pt noted to be more lethargic, skin tone pale, still mottled. RN conferred with nursing supervisor specialty plant who assessed pt at this time. ABG, HH, and PT/INR ordered at this time. BP 112/97 2352- Dr. Dos Santos pagerai for critical HGB 6.3, critical PCO2 18, pH 7.21, HCO3 7 0023- Dr. Dos Santos re-paged re: critical labs 0055- Dr. Dos Santos re-paged re: critical labs 0119- Dr. Dos Santos returned page, orders for 2u PRBC, 1u FFP, 10mg vitamin K, 50 mEq sodium bicarb in 1L 1/2 NS 0142- LR infusion held, 1/2 NS with sodium bicarb started 0215- Type and Screen drawn from RUE PICC line, banded by lab animal technologist 0300- blood bank called, PRBC ready, FFP to be ready in approx 30 min 0312- pre-blood admin vitals, BP 84/41, HR 140's, RR 36, SpO2 100%, T 100.1 0314 repeat BP 74/31 0333- first unit PRBC started BP 81/34, tube feed and 1/2 NS with sodium bicarb on hold at this time 0345- BP 71/38 0347- BP 66/29 0350- BP 51/15 Rapid Response called, RT and Domestic Travel Consultant responded, ICU charge master specialist called nurse's station 0354- BP 58/21 0358- BP 57/15 0400- BP 65/39, 50 mEq sodium bicarb IVP, pulled and administered, femoral pulse noted with doppler, FSBG 107, mottling no longer noted in extremities, nursing supervisor specialty plant to assess pt's abd, blood and clotting noted, abd soft at this time per this RN and nursing supervisor specialty plant's assessment 0404- BP 76/40 0411- BP 84/44 0414- BP 83/40, Dr. Dos Santos called to update on pt status, order received for CT abd/pelvis, OK to transfer to ICU if necessary, repeat ABG, morning labs 0424- BP 91/46 0430- BP 88/45 0436- BP 94/39 1st unit PRBC transfused, pt noted to be more alert at this time, moving her head, following RN with her eyes, skin tone more pink/less pale 0439- 2nd unit PRBC started 0444- BP 96/39 0446- FFP started 0454- BP 102/45 0504- BP 101/48 0514- BP 101/52 0524- BP 101/53 0534- BP 105/55 0538- 2nd unit PRBC transfused 0544- BP 110/58 0554- BP 109/60 0600- FFP transfused, 1/2 NS with 50mEq sodium bicarb restarted, albumin and meropenem started as ordered 0604- BP 110/58 0614- BP 111/58 0620- labs drawn by this RN, pt noted to be attempting to cough up mucus, charge master specialist performed sterile, deep tracheal suctioning, large amount of mucus suctioned per charge master specialist 0624- BP 105/54 0630- this RN and charge master specialist attempted to perform incontinence care/turn pt. Clotted blood in pt's abd dressing noted to have increased substantially, abd assessed by this RN and charge master specialist now noted to be distended and firm. 0650- report given to day shift, care transferred 0701- BP 89/50 0705- CT order changed to STAT 0715- day shift charge master specialist and ICU charge master specialist transferred pt to CT, on monitor, order for transfer to ICU 0730- security shift manager charge master specialist called pt's daughter to update on pt's status, this RN called pt's significant other to update on status 0810- this RN re-called pt's significant other to inform him of pt's new room assignment and SENIOR NET C DEVELOPER's name.
[2019-12-05] MEDS: MULTIVITAMINS,THERAPEUTIC 5 ML ORAL LIQUID. PEG SCH (08:29)
[2019-12-05] MEDS: PANTOPRAZOLE IV PUSH 40 MG VIAL. IVP SCH (08:57)
--- NOTE | 2019-12-05 09:30 | PDOC ---
Infectious Disease Note Subjective Subjective Unresponsive ROS ROS unable to obtain Vital Sign Vital Signs Vital Signs Date Time Temp Pulse Resp B/P (MAP) Pulse Ox O2 Delivery O2 Flow Rate FiO2 12/05/19 08:30 100 Nasal Cannula 2.0 12/05/19 07:24 98.6 133 34 89/50 (63) 98.6 Physical Exam PHYSICAL EXAM GENERAL: Propped up in bed, her eyes are wide open, upward gaze, unresponsive to verbal, + visual threat HEENT: Pupils equal, oral cavity dry. NECK: Tracheostomy LUNGS: Diminished aeration bases, HEART: S1, S2, ABDOMEN: Distended, bowel sounds hypoactive, soft, GJ drain present, drainage bag in place - bloody drainage, + rectal tube : Lind in place EXTREMITIES: Generalized edema, SKIN: warm touch. NEURO: - Eyes are open, unresponsive to verbal and tactile stimuli RUE PICC site without signs of complications. PIV s clean Labs Lab Laboratory Tests Test 12/04/19 11:47 12/04/19 18:09 12/04/19 23:05 12/04/19 23:30 Glucose (Fingerstick) 195 mg/dL (70-99) 171 mg/dL (70-99) O2 Saturation 97 % (92-99) Arterial Blood pH 7.22 (7.35-7.45) Arterial Blood pH (Temp corrected) 7.21 Arterial Blood pCO2 at Patient Temp 18 mmHg (35-46) Arterial Blood pCO2 (Temp correct) 19 mmHg Arterial Blood pO2 at Patient Temp 107 mmHg (75-108) Arterial Blood pO2 (Temp corrected) 112 mmHg Arterial Blood HCO3 7 mmol/L (21-28) Arterial Blood Base Excess -19 mmol/L (-3-3) FiO2 40 Hemoglobin 6.3 g/dL (12.0-15.5) Hematocrit 21.3 % (36.0-47.0) Mean Corpuscular Hemoglobin Concent 30 g/dL (31-37) Prothrombin Time 34.6 SEC (11.7-14.0) Prothromb Time International Ratio 3.4 (0.8-1.1) Test 12/05/19 00:13 12/05/19 04:01 12/05/19 06:10 12/05/19 06:20 Glucose (Fingerstick) 109 mg/dL (70-99) 107 mg/dL (70-99) 93 mg/dL (70-99) Prothrombin Time 27.9 SEC (11.7-14.0) Prothromb Time International Ratio 2.6 (0.8-1.1) Sodium Level 154 mmol/L (136-145) Potassium Level 3.6 mmol/L (3.5-5.1) Chloride Level 119 mmol/L (98-107) Carbon Dioxide Level 14 mmol/L (21-32) Anion Gap 21 (6-14) Blood Urea Nitrogen 58 mg/dL (7-20) Creatinine 2.5 mg/dL (0.6-1.0) Estimated GFR (Cockcroft-Gault) 20.5 BUN/Creatinine Ratio 23 (6-20) Glucose Level 100 mg/dL (70-99) Calcium Level 7.8 mg/dL (8.5-10.1) Total Bilirubin 0.7 mg/dL (0.2-1.0) Aspartate Amino Transf (AST/SGOT) 30 U/L (15-37) Alanine Aminotransferase (ALT/SGPT) 13 U/L (14-59) Alkaline Phosphatase 338 U/L (46-116) Total Protein 4.8 g/dL (6.4-8.2) Albumin 2.0 g/dL (3.4-5.0) Albumin/Globulin Ratio 0.7 (1.0-1.7) Micro CT 12/04 IMPRESSION: Redemonstration of extensive bilateral retroperitoneal and peritoneal collections, slightly increased in the left subdiaphragmatic region but otherwise similar in configuration to prior exams. Scattered areas of high attenuation material within these collections consistent with acute blood products. 09/24 GRAM STAIN Final Final GRAM NEGATIVE RODS:MODERATE SQUAMOUS EPI CELL:NOT APPLICABLE PMN (WBCs):RARE YEAST:MODERATE Unless otherwise specified, Testing Performed by: [address] [address] For Inquires, the Physician may contact the Microbiology department at [phone] ANAEROBIC-AEROBIC CULTURE Preliminary Preliminary MANY GRAM NEGATIVE RODS on 09/27/19 at 1156 FINAL ID= [[email or web address]] PSEUDOMONAS AERUGINOSA ANTIMICROBIAL SUSCEPTIBILITY Preliminary Comment NEG ALEXANDRA 56 PSEUDOMONAS AERUGINOSA ANTIBIOTIC RESULT INTERPRETATION AMIKACIN <=16 S AZTREONAM >16 R CEFTAZIDIME >16 R CIPROFLOXACIN <=0.25 S CEFEPIME 16 I CEFTAZIDIME/AVIBACTAM <=4 S GENTAMICIN <=2 S CONTINUED ON NEXT PAGE RUN DATE: 09/29/19 [facility] *LIVE* PAGE 2 RUN TIME: 1016 Specimen Inquiry SPEC: [id number] PATIENT: POLOSCOTT [id number] ( Continued) Procedure Result ANTIMICROBIAL SUSCEPTIBILITY Preliminary (continued) LEVOFLOXACIN <=0.5 S MEROPENEM <=1 S PIPERACILLIN/TAZOBACTAM 64 S TOBRAMYCIN <=2 S Unless otherwise specified, Testing Performed by: [facility] [address] [place] [address] For Inquires, the Physician may contact the Microbiology department at [phone] CT Scan 09/23 IMPRESSION: 1. Removal of the percutaneous pigtail drainage catheters since the prior exam. Sequela of pancreatitis with extensive pseudocysts again demonstrated, the right-sided collections are slightly larger since the prior exam, the left-sided collections are stable. See above. 2. Moderate to large left pleural effusion with atelectasis and collapse of most of the left lower lobe, stable. Small right pleural effusion is stable. 3. Gallstone. Objective Assessment Patient with prolonged hospitalization more than 4 months Multiple medical problems Multiple surgical procedures GI bleed - s/p PRBCs/FFP/vit K Fever URINE with parapsilosis 11/27 S/P Exp. 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 parapsilosis & PSAE (I-merrem/ceftazidime/AZT/cefepime)) Leukocytosis - worse JUANA Anemia Coagulopathy Loose stool but on tube feed - WBC down and no gross fever Fever - 11/11 c-diff neg Acute gallstone pancreatitis with persistent necrosis - 07/27. CT A/P Increased ascites. 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 status post KAYLIN drain placement; C. parapsilosis. s/p drain 08/23 + yeast & high amylase; s/p additional drain on 08/25. Drains removed. -08/23. fluid devyn parapsilosis fluid, amylase high - 09/23 showed multiple pseudocysts, slight larger on the right. s/p drains x 3, 09/24. + PSAE (MDRO-R Cefepime, Zosyn ALEXANDRA < 64) and yeast, -09/24 s/p drain replacement x 3; fluid cult PSAE (MDRO), yeast; treated -10/29 CT A/P shows smaller fluid collections. -722 CT abdomen and pelvis drains in place Ascites s/p paracentesis 08/02 & 08/23. C. parapsilosis Cholelithiasis with thickening of the gallbladder wall. JUANA, Hyperkalemia, Metabolic acidosis off dialysis Acute hypoxic resp failure. trach/vent. sputum 09/30 + PSAE (I merrem) ; sputum culture November 05+ for PSAE R Merrem, sensitive to cefepime Pleural effusion status post CTS left side Abdominal fluid culture MDRO Pseudomonas, yeast Sputum culture positive 11/05 for MDRO Pseudomonas Chest tube fluid positive for 11/07 Devyn Parapsilosis Plan Plan of Care CXR Cont daptomycin, and micafungin started 12/03 D/c Meropenem and dose Avycaz d/w pharmacy 12/04 Await Surgical eval re CT findingis Blood cults Pend D/w micro re: Urine 11/27 - C parapsilosis - dose Diflucan times one today - cont matilde cefepime, renal dosing as needed and flagyl 11/27,- d/c'd 12/03 C diff neg 11/29 BC 11/27 negative Monitor labs/temp Lind changed 11/28 Nystatin to groin Right upper extremity PICC line placed 11/17 Wound care /drain management as directed 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
[2019-12-05 10:05] LABS: BASO % 0 % (0-3); EOS % 0 % (0-3); HEMATOCRIT 26.3 % (36.0-47.0); LYMPH % 3 % (24-48); MEAN CORPUSCULAR HEMOGLOBIN 28 pg (25-35); MEAN CORPUSCULAR HGB CONC 30 g/dL (31-37); MEAN CORPUSCULAR VOLUME 92 fL (79-100); MONO # 1.1 x10^3/uL (0.0-1.1); MONO % 3 % (0-9); NEUT # 36.9 x10^3/uL (1.8-7.7); NEUT % 94 % (31-73); PLATELET COUNT 280 x10^3/uL (140-400); RED BLOOD COUNT 2.87 x10^6/uL (3.50-5.40); RED CELL DISTRIBUTION WIDTH 17.9 % (11.5-14.5); WHITE BLOOD COUNT 39.1 x10^3/uL (4.0-11.0)
[2019-12-05] MEDS ORDERED: FLUCONAZOLE 100MG/50ML PREMIX 50 ML IV ONE (10:15)
--- NOTE | 2019-12-05 10:15 | PDOC ---
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 PEA VINER MECHANIC 12/05/19 1015: SURGICAL PROGRESS NOTE DATE: 12/05/19 TIME: 10:12 Subjective seen in ICU d/w nursing Vital Signs Vital Signs Date Time Temp Pulse Resp B/P (MAP) Pulse Ox O2 Delivery O2 Flow Rate FiO2 12/05/19 08:30 100 Nasal Cannula 2.0 12/05/19 07:24 98.6 133 34 89/50 (63) 98.6 I&O Intake and Output 12/05/19 07:00 Intake Total 2135 ml Output Total 3475 ml Balance -1340 ml Intake Oral 0 ml IV Total 385 ml Tube Feeding 600 ml Blood Product IV Normal Saline Flush 1150 ml Output Urine Total 200 ml Stool Total 1450 ml Drainage Total 1825 ml General: Other (chronic ill, opens eyes) Abdomen: Soft, Other (wound with clots present) Labs Laboratory Tests Test 12/03/19 12:38 12/03/19 16:46 12/04/19 00:15 12/04/19 05:20 Glucose (Fingerstick) 167 mg/dL (70-99) 169 mg/dL (70-99) 132 mg/dL (70-99) White Blood Count 16.5 x10^3/uL (4.0-11.0) Red Blood Count 2.97 x10^6/uL (3.50-5.40) Hemoglobin 8.2 g/dL (12.0-15.5) Hematocrit 26.4 % (36.0-47.0) Mean Corpuscular Volume 89 fL (79-100) Mean Corpuscular Hemoglobin 28 pg (25-35) Mean Corpuscular Hemoglobin Concent 31 g/dL (31-37) Red Cell Distribution Width 20.4 % (11.5-14.5) Platelet Count 359 x10^3/uL (140-400) Neutrophils (%) (Auto) 81 % (31-73) Lymphocytes (%) (Auto) 12 % (24-48) Monocytes (%) (Auto) 7 % (0-9) Eosinophils (%) (Auto) 0 % (0-3) Basophils (%) (Auto) 0 % (0-3) Neutrophils # (Auto) 13.3 x10^3/uL (1.8-7.7) Lymphocytes # (Auto) 2.0 x10^3/uL (1.0-4.8) Monocytes # (Auto) 1.1 x10^3/uL (0.0-1.1) Eosinophils # (Auto) 0.1 x10^3/uL (0.0-0.7) Basophils # (Auto) 0.0 x10^3/uL (0.0-0.2) Segmented Neutrophils % 56 % (35-66) Band Neutrophils % 26 % (0-9) Lymphocytes % 12 % (24-48) Monocytes % 4 % (0-10) Eosinophils % 1 % (0-5) Myelocytes % 1 % (0-0) Nucleated Red Blood Cells 1 Toxic Granulation Slight Platelet Estimate Adequate (ADEQUATE) Polychromasia Present Poikilocytosis Present Anisocytosis Present Sodium Level 152 mmol/L (136-145) Potassium Level 3.2 mmol/L (3.5-5.1) Chloride Level 120 mmol/L (98-107) Carbon Dioxide Level 18 mmol/L (21-32) Anion Gap 14 (6-14) Blood Urea Nitrogen 58 mg/dL (7-20) Creatinine 2.1 mg/dL (0.6-1.0) Estimated GFR (Cockcroft-Gault) 25.0 Glucose Level 157 mg/dL (70-99) Calcium Level 7.4 mg/dL (8.5-10.1) Test 12/04/19 11:47 12/04/19 18:09 12/04/19 23:05 12/04/19 23:30 Glucose (Fingerstick) 195 mg/dL (70-99) 171 mg/dL (70-99) O2 Saturation 97 % (92-99) Arterial Blood pH 7.22 (7.35-7.45) Arterial Blood pH (Temp corrected) 7.21 Arterial Blood pCO2 at Patient Temp 18 mmHg (35-46) Arterial Blood pCO2 (Temp correct) 19 mmHg Arterial Blood pO2 at Patient Temp 107 mmHg (75-108) Arterial Blood pO2 (Temp corrected) 112 mmHg Arterial Blood HCO3 7 mmol/L (21-28) Arterial Blood Base Excess -19 mmol/L (-3-3) FiO2 40 Hemoglobin 6.3 g/dL (12.0-15.5) Hematocrit 21.3 % (36.0-47.0) Mean Corpuscular Hemoglobin Concent 30 g/dL (31-37) Prothrombin Time 34.6 SEC (11.7-14.0) Prothromb Time International Ratio 3.4 (0.8-1.1) Test 12/05/19 00:13 12/05/19 04:01 12/05/19 06:10 12/05/19 06:20 Glucose (Fingerstick) 109 mg/dL (70-99) 107 mg/dL (70-99) 93 mg/dL (70-99) Prothrombin Time 27.9 SEC (11.7-14.0) Prothromb Time International Ratio 2.6 (0.8-1.1) Sodium Level 154 mmol/L (136-145) Potassium Level 3.6 mmol/L (3.5-5.1) Chloride Level 119 mmol/L (98-107) Carbon Dioxide Level 14 mmol/L (21-32) Anion Gap 21 (6-14) Blood Urea Nitrogen 58 mg/dL (7-20) Creatinine 2.5 mg/dL (0.6-1.0) Estimated GFR (Cockcroft-Gault) 20.5 BUN/Creatinine Ratio 23 (6-20) Glucose Level 100 mg/dL (70-99) Calcium Level 7.8 mg/dL (8.5-10.1) Total Bilirubin 0.7 mg/dL (0.2-1.0) Aspartate Amino Transf (AST/SGOT) 30 U/L (15-37) Alanine Aminotransferase (ALT/SGPT) 13 U/L (14-59) Alkaline Phosphatase 338 U/L (46-116) Total Protein 4.8 g/dL (6.4-8.2) Albumin 2.0 g/dL (3.4-5.0) Albumin/Globulin Ratio 0.7 (1.0-1.7) Laboratory Tests Test 12/04/19 11:47 12/04/19 18:09 12/04/19 23:05 12/04/19 23:30 Glucose (Fingerstick) 195 mg/dL (70-99) 171 mg/dL (70-99) O2 Saturation 97 % (92-99) Arterial Blood pH 7.22 (7.35-7.45) Arterial Blood pH (Temp corrected) 7.21 Arterial Blood pCO2 at Patient Temp 18 mmHg (35-46) Arterial Blood pCO2 (Temp correct) 19 mmHg Arterial Blood pO2 at Patient Temp 107 mmHg (75-108) Arterial Blood pO2 (Temp corrected) 112 mmHg Arterial Blood HCO3 7 mmol/L (21-28) Arterial Blood Base Excess -19 mmol/L (-3-3) FiO2 40 Hemoglobin 6.3 g/dL (12.0-15.5) Hematocrit 21.3 % (36.0-47.0) Mean Corpuscular Hemoglobin Concent 30 g/dL (31-37) Prothrombin Time 34.6 SEC (11.7-14.0) Prothromb Time International Ratio 3.4 (0.8-1.1) Test 12/05/19 00:13 12/05/19 04:01 12/05/19 06:10 12/05/19 06:20 Glucose (Fingerstick) 109 mg/dL (70-99) 107 mg/dL (70-99) 93 mg/dL (70-99) Prothrombin Time 27.9 SEC (11.7-14.0) Prothromb Time International Ratio 2.6 (0.8-1.1) Sodium Level 154 mmol/L (136-145) Potassium Level 3.6 mmol/L (3.5-5.1) Chloride Level 119 mmol/L (98-107) Carbon Dioxide Level 14 mmol/L (21-32) Anion Gap 21 (6-14) Blood Urea Nitrogen 58 mg/dL (7-20) Creatinine 2.5 mg/dL (0.6-1.0) Estimated GFR (Cockcroft-Gault) 20.5 BUN/Creatinine Ratio 23 (6-20) Glucose Level 100 mg/dL (70-99) Calcium Level 7.8 mg/dL (8.5-10.1) Total Bilirubin 0.7 mg/dL (0.2-1.0) Aspartate Amino Transf (AST/SGOT) 30 U/L (15-37) Alanine Aminotransferase (ALT/SGPT) 13 U/L (14-59) Alkaline Phosphatase 338 U/L (46-116) Total Protein 4.8 g/dL (6.4-8.2) Albumin 2.0 g/dL (3.4-5.0) Albumin/Globulin Ratio 0.7 (1.0-1.7) Problem List Problems Medical Problems: (1) Acute pancreatitis Status: Acute (2) Cholelithiasis Status: Acute Assessment/Plan INR needs corrected CT reviewed will review with Dr Maldonado I did speak with Marce(daughter) Justicifation of Admission Dx: Justifications for Admission: Justification of Admission Dx: Yes CARIN MALDONADO MD 12/05/19 1203: SURGICAL PROGRESS NOTE Assessment/Plan Retroperitoneal hematoma, likely due to coagulopathy. Agree with Keith's assessment and plan for correction of INR. 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 APRN Dec 05, 2019 10:15 CARIN MALDONADO MD Dec 05, 2019 12:03
--- NOTE | 2019-12-05 11:25 | PDOC ---
DATE OF SERVICE DATE: 12/05/19 TIME: 11:04 SUBJECTIVE ROS noted by RN that pt's RLQ abd drain had blood in it. Pt and also mottling of skin , later drop in BP, Pt transferred to ICU this morning AMS, Unresponsive OBJECTIVE Vital Signs Vital Signs Date Time Temp Pulse Resp B/P (MAP) Pulse Ox O2 Delivery O2 Flow Rate FiO2 12/05/19 08:30 100 Nasal Cannula 2.0 12/05/19 07:24 98.6 133 34 89/50 (63) 98.6 I & 0 Intake and Output 12/05/19 07:00 Intake Total 2135 ml Output Total 3475 ml Balance -1340 ml Intake Oral 0 ml IV Total 385 ml Tube Feeding 600 ml Blood Product IV Normal Saline Flush 1150 ml Output Urine Total 200 ml Stool Total 1450 ml Drainage Total 1825 ml PHYSICAL EXAM Physical Exam GENERAL:eyes open, upward gaze, unresponsive to verbal HEENT:OM dry NECK: Tracheostomy +, On 2 Lts O2 LUNGS: Diminished aeration bases,non labored HEART: S1, S2, ABDOMEN: Distended, bowel sounds hypoactive, soft, GJ drain present, drainage bag in place - bloody drainage, + rectal tube : Lind in place EXTREMITIES: Generalized edema, SKIN: warm touch, no rash NEURO: - Eyes are open, unresponsive to verbal and tactile stimuli DIAGNOSIS/ASSESSMENT Assessment & Plan JUANA- suspect ATN Had JUANA earlier during hospitalization , reqd CRRT/HD with resolution of JUANA 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 Will need to initiate HD, will need Temp HDC , If doesnt tolerate HD will switch to CRRT , Dw Family members at bedside HypoTensive - Not on pressors currently AMS- unresponsive Acidosis- Has been recieving IV bicarb per Primary , K normal HyperNatremia - monitor GI bleed - s/p PRBCs/FFP/vit K Fever- Leukocytosis worse . on Abx HyperCalcemia- Neph was reconsulted on 11/23 seen by me Resolved , No interim Neph fu Acute gallstone pancreatitis with persistent necrosis, Cholelithiasis with thickening of the gallbladder wall. S/P Exp. Lap, SAURABH, ronel, G-J tube & pancreatic necrosectomy on 10/17 Anemia- 2/2 GI bleed, GS following Acute hypoxic resp failure. trach- was on Vent, currently on 2 Lts O2 Pleural effusion status post CTS left side- Bilateral pleural effusions/pulm edema s/p Throacentesis on 10/03/2019 Patient with prolonged hospitalization- 5 months Multiple medical problems,Multiple surgical procedures COMMENT/RELEVANT DATA Meds Current Medications Medications (Trade) Dose Ordered Sig/Yvon Start Time Stop Time Status Last Admin Dose Admin Acetaminophen (Tylenol Supp) 650 mg PRN Q6HRS PRN 07/12/19 10:30 11/28/19 15:43 650 MG Acetaminophen (Tylenol) 650 mg PRN Q6HRS PRN 12/04/19 04:15 12/04/19 21:02 650 MG Acetaminophen/ Hydrocodone Bitart (Lortab 5/325) 1 tab PRN Q4HRS PRN 11/10/19 16:00 12/03/19 14:27 1 TAB Acetylcysteine (Mucomyst 20% Resp Treatment) 600 mg RTBID 10/15/19 12:00 12/05/19 08:00 600 MG Albumin Human 100 ml @ 100 mls/hr Q12H 12/03/19 18:00 12/05/19 06:05 100 MLS/HR Albuterol Sulfate (Ventolin Neb Soln) 2.5 mg 1X ONCE 07/05/19 22:30 07/05/19 22:31 DC 07/06/19 00:56 2.5 MG Albuterol/ Ipratropium (Duoneb) 3 ml Q4HRS 10/01/19 08:00 12/05/19 08:19 3 ML Alprazolam (Xanax) 0.5 mg PRN QID PRN 11/10/19 16:00 12/02/19 08:41 0.5 MG Alteplase, Recombinant (Cathflo For Central Catheter Clearance) 1 mg 1X ONCE 11/23/19 07:00 11/23/19 07:01 DC 11/23/19 09:30 1 MG Alteplase, Recombinant 4 mg/ Sodium Chloride 20 ml @ 20 mls/hr 1X ONCE 10/05/19 10:00 10/05/19 10:59 DC 10/05/19 10:09 20 MLS/HR Alteplase, Recombinant 5 mg/ Sodium Chloride 30 ml @ 30 mls/hr 1X PRN 11/23/19 06:45 UNV Amino Acids/ Glycerin/ Electrolytes 1,000 ml @ 80 mls/hr [id number] 11/13/19 10:15 11/20/19 07:07 DC 11/19/19 18:10 80 MLS/HR Artificial Tears (Artificial Tears) 1 drop PRN Q15MIN PRN 08/17/19 05:30 10/11/19 21:17 1 DROP Atenolol (Tenormin) 100 mg DAILY 07/05/19 09:00 07/04/19 20:08 DC Atropine Sulfate (ATROPINE 0.5mg SYRINGE) 0.5 mg PRN Q5MIN PRN 07/21/19 08:15 11/21/19 09:45 DC Barium Sulfate (Varibar Thin Liquid Apple) 148 gm 1X ONCE 09/13/19 11:45 09/13/19 11:49 DC Benzocaine (Hurricaine One) 1 spray 1X ONCE 07/08/19 14:30 07/08/19 14:31 DC 07/08/19 16:38 1 SPRAY Bisacodyl (Dulcolax Supp) 10 mg STK-MED ONCE 08/15/19 10:59 08/15/19 10:59 DC Bumetanide (Bumex) 2 mg DAILY 08/26/19 10:00 09/05/19 17:15 DC 09/05/19 08:07 2 MG Bupivacaine HCl/ Epinephrine Bitart (Sensorcain-Epi 0.5%-1:102653 Mpf) 30 ml STK-MED ONCE 10/18/19 08:34 10/18/19 08:35 DC Calcitonin [place] (Miacalcin) 400 unit BID 11/24/19 18:00 11/25/19 15:56 DC 11/24/19 18:18 400 UNIT Calcium Carbonate/ Glycine (Tums) 500 mg PRN AFTMEALHC PRN 07/06/19 17:45 08/31/19 10:25 DC Calcium Chloride 1000 mg/Sodium Chloride 110 ml @ 220 mls/hr 1X ONCE 07/05/19 22:30 07/05/19 22:59 DC 07/05/19 22:11 220 MLS/HR Calcium Chloride 3000 mg/Sodium Chloride 1,030 ml @ 50 mls/hr [id number] 07/07/19 08:00 07/09/19 15:23 DC 07/09/19 02:17 50 MLS/HR Calcium Gluconate (Calcium Gluconate) 1,000 mg 1X ONCE 12/02/19 14:45 12/02/19 14:53 DC 12/02/19 15:25 1,000 MG Calcium Gluconate 1000 mg/Sodium Chloride 110 ml @ 220 mls/hr 1X ONCE 07/06/19 03:30 07/06/19 03:59 DC 07/06/19 03:21 220 MLS/HR Calcium Gluconate 2000 mg/Sodium Chloride 120 ml @ 220 mls/hr 1X ONCE 07/06/19 07:30 07/06/19 08:02 DC 07/06/19 09:05 220 MLS/HR Cefepime HCl (Maxipime) 2 gm Q12HR 11/28/19 10:00 12/04/19 14:48 DC 12/04/19 09:32 2 GM Ceftazidime/ Avibactam 0.94 gm/ Sodium Chloride 250 ml @ 125 mls/hr Q12HR 12/05/19 13:00 Ceftazidime/ Avibactam 2.5 gm/ Sodium Chloride 250 ml @ 125 mls/hr Q8HRS 11/10/19 08:00 11/23/19 08:20 DC 11/23/19 05:38 125 MLS/HR Cellulose (Surgicel Fibrillar 1x2) 1 each STK-MED ONCE 07/25/19 11:00 07/25/19 11:01 DC Cellulose (Surgicel Hemostat 2x14) 1 each STK-MED ONCE 08/15/19 10:58 08/15/19 10:59 DC Cellulose (Surgicel Hemostat 4x8) 1 each STK-MED ONCE 08/15/19 10:58 08/15/19 10:59 DC Chlorhexidine Gluconate (Peridex) 15 ml BID 10/01/19 09:00 10/01/19 07:58 DC Ciprofloxacin/ Dextrose 200 ml @ 200 mls/hr Q12HR 10/30/19 10:00 11/08/19 08:20 DC 11/07/19 21:02 200 MLS/HR Cyclobenzaprine HCl (Flexeril) 10 mg PRN Q6HRS PRN 08/18/19 10:45 12/03/19 14:25 10 MG Daptomycin 410 mg/ Sodium Chloride 50 ml @ 100 mls/hr Q24H 09/25/19 14:00 09/28/19 08:30 DC 09/27/19 13:33 100 MLS/HR Daptomycin 430 mg/ Sodium Chloride 50 ml @ 100 mls/hr Q24H 08/13/19 13:00 08/18/19 20:58 DC 08/18/19 13:00 100 MLS/HR Daptomycin 450 mg/ Sodium Chloride 50 ml @ 100 mls/hr Q24H 09/04/19 09:00 09/08/19 08:30 DC 09/07/19 09:25 100 MLS/HR Daptomycin 480 mg/ Sodium Chloride 50 ml @ 100 mls/hr Q24H 12/04/19 16:00 12/04/19 18:02 100 MLS/HR Daptomycin 485 mg/ Sodium Chloride 50 ml @ 100 mls/hr Q24H 08/22/19 11:00 08/30/19 07:44 DC 08/29/19 13:10 100 MLS/HR Daptomycin 500 mg/ Sodium Chloride 50 ml @ 100 mls/hr Q24H 11/13/19 09:00 11/23/19 08:20 DC 11/22/19 09:20 100 MLS/HR Desflurane (Suprane) 90 ml STK-MED ONCE 10/18/19 10:18 10/18/19 10:19 DC Dexamethasone Sodium Phosphate (Decadron) 4 mg STK-MED ONCE 08/15/19 10:56 08/15/19 10:57 DC Dexmedetomidine HCl 400 mcg/ Sodium Chloride 100 ml @ 0 mls/hr CONT PRN 07/21/19 08:15 09/17/19 18:31 DC 09/17/19 12:57 8 MLS/HR Dextrose (Dextrose 50%-Water Syringe) 12.5 gm PRN Q15MIN PRN 07/04/19 09:30 Digoxin (Lanoxin) 125 mcg 1X ONCE 07/07/19 18:00 07/07/19 18:01 DC 07/07/19 17:10 125 MCG Diphenhydramine HCl (Benadryl Oral Elixir) 12.5 mg 1X PRN PRN 12/05/19 01:30 Diphenhydramine HCl (Benadryl) 25 mg 1X ONCE 11/03/19 19:00 11/03/19 19:01 DC 11/03/19 18:56 25 MG Duloxetine HCl (Cymbalta) 30 mg DAILY 08/28/19 14:00 08/31/19 10:25 DC 08/29/19 09:48 30 MG Enoxaparin Sodium (Lovenox 100mg Syringe) 100 mg Q12HR 08/09/19 21:00 UNV Enoxaparin Sodium (Lovenox 40mg Syringe) 40 mg Q24H 10/19/19 08:00 12/04/19 09:31 40 MG Ephedrine Sulfate (ePHEDrine PF IN SALINE SYRINGE) 50 mg STK-MED ONCE 10/18/19 14:45 10/18/19 14:45 DC Etomidate (Amidate) 8 mg 1X ONCE 07/11/19 08:30 07/11/19 08:31 DC 07/11/19 08:33 8 MG Fentanyl (Duragesic 12mcg/ Hr Patch) 1 patch Q3DAYS 10/28/19 09:00 12/03/19 08:38 1 PATCH Fentanyl (Duragesic 50mcg/ Hr Patch) 1 patch Q72H 09/22/19 21:00 10/01/19 12:00 DC 09/22/19 21:22 1 PATCH Fentanyl Citrate (Fentanyl 2ml Vial) 100 mcg STK-MED ONCE 11/22/19 15:03 11/22/19 15:03 DC Fentanyl Citrate (Fentanyl 5ml Vial) 250 mcg 1X ONCE 08/26/19 09:15 08/26/19 09:16 DC 08/26/19 09:30 50 MCG Fluconazole/ Sodium Chloride 50 ml @ 100 mls/hr ONCE ONCE 12/05/19 10:15 12/05/19 10:44 DC Flumazenil (Romazicon) 0.5 mg STK-MED ONCE 09/25/19 14:48 09/25/19 14:48 DC Fluoxetine HCl (PROzac) 20 mg QHS 09/22/19 21:00 12/04/19 21:02 20 MG Furosemide (Lasix) 40 mg [id number] 11/24/19 09:00 11/24/19 14:01 DC 11/24/19 13:51 40 MG Haloperidol Lactate (Haldol Inj) 3 mg 1X ONCE 08/22/19 14:30 08/22/19 14:31 DC 08/22/19 14:37 3 MG Heparin Sodium (Porcine) (Hep Lock Adult) 500 unit STK-MED ONCE 07/26/19 09:29 07/26/19 09:30 DC Heparin Sodium (Porcine) (Heparin Sodium) 5,000 unit Q12HR 08/15/19 21:00 08/25/19 09:59 DC 08/24/19 20:57 5,000 UNIT Heparin Sodium (Porcine) 1000 unit/Sodium Chloride 1,001 ml @ 1,001 mls/hr 1X ONCE 10/18/19 06:00 10/18/19 06:59 DC Hydromorphone HCl (Dilaudid Standard DIRECTOR OF SEARCH [employer]INE [employer]IMIZATION) 12 mg STK-MED ONCE 08/19/19 15:50 08/30/19 11:24 DC Hydromorphone HCl (Dilaudid) 1 mg PRN Q4HRS PRN 08/22/19 19:00 09/05/19 17:10 DC 09/05/19 06:25 1 MG Info (CONTRAST GIVEN -- Rx MONITORING) 1 each PRN DAILY PRN 11/08/19 11:45 11/10/19 11:44 DC Info (Icu Electrolyte Protocol) 1 ea CONT PRN PRN 07/17/19 13:15 Info (PHARMACY MONITORING -- do not chart) 1 each PRN DAILY PRN 08/12/19 15:45 09/13/19 14:14 DC Info (Tpn Per Pharmacy) 1 each PRN DAILY PRN 07/06/19 12:30 UNV Insulin Human Lispro (HumaLOG) 0-9 UNITS Q6HRS 07/04/19 09:30 12/02/19 12:43 5 UNITS Insulin Human Regular (HumuLIN R VIAL) 5 unit 1X ONCE 07/05/19 22:30 07/05/19 22:31 DC 07/05/19 22:14 5 UNIT Iohexol (Omnipaque 240 Mg/ml) 10 ml 1X ONCE 11/22/19 15:45 11/22/19 15:46 DC 11/22/19 15:00 10 ML Iohexol (Omnipaque 300 Mg/ml) 50 ml 1X ONCE 11/15/19 11:00 11/15/19 11:01 DC Iohexol (Omnipaque 350 Mg/ml) 90 ml 1X ONCE 07/04/19 03:30 07/04/19 03:31 DC 07/04/19 03:25 90 ML Ketorolac Tromethamine (Toradol 30mg Vial) 30 mg 1X ONCE 07/04/19 03:00 07/04/19 03:01 DC 07/04/19 02:54 30 MG Lidocaine HCl (Buffered Lidocaine 1%) 5 ml 1X ONCE 11/22/19 15:45 11/22/19 15:46 DC 11/22/19 15:00 5 ML Lidocaine HCl (Glydo (Lidocaine) Jelly) 1 ramu 1X ONCE 07/08/19 14:30 07/08/19 14:31 DC 07/08/19 16:38 1 RAMU Lidocaine HCl (Lidocaine 1% 20ml Vial) 20 ml 1X ONCE 09/25/19 15:00 09/25/19 15:01 DC 09/25/19 15:30 20 ML Lidocaine HCl (Lidocaine Pf 2% Vial) 5 ml STK-MED ONCE 10/18/19 07:44 10/18/19 07:44 DC Lidocaine HCl (Xylocaine-Mpf 1% 2ml Vial) 2 ml PRN 1X PRN 08/15/19 07:00 08/16/19 06:59 DC Linezolid/Dextrose 300 ml @ 300 mls/hr Q12HR 09/04/19 09:00 09/07/19 08:11 DC 09/06/19 21:08 300 MLS/HR Lorazepam (Ativan Inj) 0.25 mg PRN Q4HRS PRN 09/21/19 07:30 12/01/19 15:56 0.25 MG Magnesium Sulfate 50 ml @ 25 mls/hr 1X ONCE 12/02/19 15:00 12/02/19 16:59 DC 12/02/19 15:24 25 MLS/HR Meropenem 1 gm/ Sodium Chloride 100 ml @ 200 mls/hr Q12HR 09/25/19 21:00 10/13/19 08:56 DC 10/13/19 08:27 200 MLS/HR Meropenem 500 mg/ Sodium Chloride 50 ml @ 100 mls/hr Q6HRS 12/04/19 16:00 12/05/19 06:05 100 MLS/HR Methylprednisolone Sodium Succinate (SOLU-Medrol 125MG VIAL) 125 mg 1X ONCE 10/01/19 06:15 10/01/19 06:16 DC 10/01/19 06:26 125 MG Metoclopramide HCl (Reglan Vial) 10 mg PRN Q3HRS PRN 08/27/19 16:45 09/01/19 04:25 10 MG Metoprolol Tartrate (Lopressor Vial) 5 mg 1X ONCE 11/27/19 10:45 11/27/19 10:46 DC 11/27/19 10:54 5 MG Metronidazole 100 ml @ 100 mls/hr Q12HR 11/28/19 10:00 12/04/19 14:48 DC 12/04/19 09:31 100 MLS/HR Micafungin Sodium 100 mg/Dextrose 100 ml @ 100 mls/hr Q24H 12/04/19 15:00 12/04/19 15:29 100 MLS/HR Midazolam HCl (Versed) 2 mg 1X ONCE 09/25/19 15:00 09/25/19 15:01 DC 09/25/19 15:28 1 MG Midazolam HCl 100 mg/Sodium Chloride 100 ml @ 1 mls/hr CONT PRN 10/18/19 14:45 11/21/19 09:45 DC 10/21/19 18:48 10 MLS/HR Midazolam HCl 50 mg/Sodium Chloride 50 ml @ 0 mls/hr CONT PRN 07/11/19 08:15 07/16/19 15:59 DC 07/14/19 22:39 7 MLS/HR Morphine Sulfate (Morphine Sulfate) 1 mg PRN Q1HR PRN 10/18/19 14:45 11/21/19 09:45 DC 11/12/19 18:28 1 MG Multi-Ingred Cream/Lotion/Oil/ Oint (Artificial Tears Eye Ointment) 1 ramu PRN Q1HR PRN 07/13/19 17:30 09/21/19 14:39 DC 08/01/19 08:19 1 RAMU Multivitamins/ Minerals Therapeutic (Centrum Multivit-Mineral Liq) 5 ml DAILY 11/23/19 09:00 12/04/19 09:30 5 ML Naloxone HCl (Narcan) 0.4 mg PRN Q2MIN PRN 10/18/19 14:45 11/21/19 09:45 DC Norepinephrine Bitartrate 8 mg/ Dextrose 258 ml @ 13.332 mls/ hr CONT PRN 09/25/19 06:30 11/21/19 09:45 DC 10/20/19 09:09 1.6 MLS/HR Ondansetron HCl (Zofran) 4 mg STK-MED ONCE 10/18/19 13:33 10/18/19 13:33 DC Pantoprazole Sodium (PROTONIX VIAL for IV PUSH) 40 mg DAILYAC 07/04/19 11:30 12/05/19 08:57 40 MG Phenylephrine HCl (Brayden-Synephrine Inj) 10 mg STK-MED ONCE 10/18/19 13:33 10/18/19 13:33 DC Phenylephrine HCl (PHENYLEPHRINE in 0.9% NACL PF) 1 mg STK-MED ONCE 10/18/19 14:44 10/18/19 14:45 DC Phytonadione (Vitamin K Ampule) 10 mg 1X ONCE 12/05/19 02:00 12/05/19 02:01 DC 12/05/19 01:44 10 MG Piperacillin Sod/ Tazobactam Sod 3.375 gm/Sodium Chloride 50 ml @ 100 mls/hr Q6HRS 09/14/19 12:00 09/22/19 07:26 DC 09/22/19 06:10 100 MLS/HR Piperacillin Sod/ Tazobactam Sod 4.5 gm/Sodium Chloride 100 ml @ 200 mls/hr 1X ONCE 07/04/19 06:00 07/04/19 06:29 DC 07/04/19 05:44 200 MLS/HR Potassium Chloride 110 meq/ Magnesium Sulfate 20 meq/ Multivitamins 10 ml/Chromium/ Copper/Manganese/ Seleni/Zn 1 ml/ Insulin Human Regular 15 unit/ Total Parenteral Nutrition/Amino Acids/Dextrose/ Fat Emulsion Intravenous 1,800 ml @ 75 mls/hr TPN CONT 09/11/19 22:00 09/12/19 21:59 DC 09/11/19 22:48 75 MLS/HR Potassium Chloride 15 meq/ Bicarbonate Dialysis Soln w/ out KCl 5,007.5 ml @ 1,000 mls/ hr Q5H1M 07/17/19 20:00 07/21/19 13:08 DC 07/20/19 18:14 1,000 MLS/HR Potassium Chloride 20 meq/ Bicarbonate Dialysis Soln w/ out KCl 5,010 ml @ 1,000 mls/hr Q5H1M 07/13/19 16:00 07/17/19 19:59 DC 07/17/19 14:54 1,000 MLS/HR Potassium Chloride 40 meq/ Potassium Acetate 60 meq/Magnesium Sulfate 10 meq/ Multivitamins 10 ml/Chromium/ Copper/Manganese/ Seleni/Zn 1 ml/ Insulin Human Regular 20 unit/ Total Parenteral Nutrition/Amino Acids/Dextrose/ Fat Emulsion Intravenous 1,800 ml @ 75 mls/hr TPN CONT 09/22/19 22:00 09/23/19 21:59 DC 09/23/19 00:03 75 MLS/HR Potassium Chloride 70 meq/ Magnesium Sulfate 20 meq/ Multivitamins 10 ml/Chromium/ Copper/Manganese/ Seleni/Zn 1 ml/ Insulin Human Regular 15 unit/ Total Parenteral Nutrition/Amino Acids/Dextrose/ Fat Emulsion Intravenous 1,800 ml @ 75 mls/hr TPN CONT 09/16/19 22:00 09/17/19 21:59 DC 09/16/19 23:13 75 MLS/HR Potassium Chloride 75 meq/ Magnesium Sulfate 15 meq/ Multivitamins 10 ml/Chromium/ Copper/Manganese/ Seleni/Zn 0.5 ml/ Insulin Human Regular 15 unit/ Total Parenteral Nutrition/Amino Acids/Dextrose/ Fat Emulsion Intravenous 1,920 ml @ 80 mls/hr TPN CONT 08/27/19 22:00 08/28/19 21:59 DC 08/27/19 22:41 80 MLS/HR Potassium Chloride 75 meq/ Magnesium Sulfate 15 meq/Calcium Gluconate 8 meq/ Multivitamins 10 ml/Chromium/ Copper/Manganese/ Seleni/Zn 0.5 ml/ Insulin Human Regular 15 unit/ Total Parenteral Nutrition/Amino Acids/Dextrose/ Fat Emulsion Intravenous 1,920 ml @ 80 mls/hr TPN CONT 08/25/19 22:00 08/26/19 21:59 DC 08/25/19 22:28 80 MLS/HR Potassium Chloride 75 meq/ Magnesium Sulfate 15 meq/Calcium Gluconate 8 meq/ Multivitamins 10 ml/Chromium/ Copper/Manganese/ Seleni/Zn 0.5 ml/ Insulin Human Regular 20 unit/ Total Parenteral Nutrition/Amino Acids/Dextrose/ Fat Emulsion Intravenous 1,920 ml @ 80 mls/hr TPN CONT 08/24/19 22:00 08/25/19 21:59 DC 08/24/19 22:00 80 MLS/HR Potassium Chloride 75 meq/ Magnesium Sulfate 15 meq/Calcium Gluconate 8 meq/ Multivitamins 10 ml/Chromium/ Copper/Manganese/ Seleni/Zn 0.5 ml/ Insulin Human Regular 25 unit/ Total Parenteral Nutrition/Amino Acids/Dextrose/ Fat Emulsion Intravenous 1,920 ml @ 80 mls/hr TPN CONT 08/22/19 22:00 08/23/19 21:59 DC 08/22/19 23:08 80 MLS/HR Potassium Chloride 75 meq/ Magnesium Sulfate 20 meq/Calcium Gluconate 10 meq/ Multivitamins 10 ml/Chromium/ Copper/Manganese/ Seleni/Zn 0.5 ml/ Insulin Human Regular 25 unit/ Total Parenteral Nutrition/Amino Acids/Dextrose/ Fat Emulsion Intravenous 1,920 ml @ 80 mls/hr TPN CONT 08/21/19 22:00 08/22/19 21:59 DC 08/21/19 22:04 80 MLS/HR Potassium Chloride 75 meq/ Magnesium Sulfate 20 meq/Calcium Gluconate 10 meq/ Multivitamins 10 ml/Chromium/ Copper/Manganese/ Seleni/Zn 0.5 ml/ Insulin Human Regular 30 unit/ Total Parenteral Nutrition/Amino Acids/Dextrose/ Fat Emulsion Intravenous 1,920 ml @ 80 mls/hr TPN CONT 08/20/19 22:00 08/21/19 22:00 DC 08/20/19 21:51 80 MLS/HR Potassium Chloride 80 meq/ Magnesium Sulfate 20 meq/ Multivitamins 10 ml/Chromium/ Copper/Manganese/ Seleni/Zn 0.5 ml/ Insulin Human Regular 15 unit/ Total Parenteral Nutrition/Amino Acids/Dextrose/ Fat Emulsion Intravenous 1,920 ml @ 80 mls/hr TPN CONT 08/30/19 22:00 08/31/19 21:59 DC 08/30/19 21:40 80 MLS/HR Potassium Chloride 80 meq/ Magnesium Sulfate 20 meq/ Multivitamins 10 ml/Chromium/ Copper/Manganese/ Seleni/Zn 1 ml/ Insulin Human Regular 15 unit/ Total Parenteral Nutrition/Amino Acids/Dextrose/ Fat Emulsion Intravenous 1,800 ml @ 75 mls/hr TPN CONT 09/18/19 22:00 09/19/19 21:59 DC 09/18/19 21:54 75 MLS/HR Potassium Chloride 90 meq/ Magnesium Sulfate 20 meq/ Multivitamins 10 ml/Chromium/ Copper/Manganese/ Seleni/Zn 1 ml/ Insulin Human Regular 15 unit/ Total Parenteral Nutrition/Amino Acids/Dextrose/ Fat Emulsion Intravenous 1,800 ml @ 75 mls/hr TPN CONT 09/07/19 22:00 09/08/19 21:59 DC 09/07/19 22:28 75 MLS/HR Potassium Chloride 90 meq/ Magnesium Sulfate 20 meq/ Multivitamins 10 ml/Chromium/ Copper/Manganese/ Seleni/Zn 1 ml/ Insulin Human Regular 20 unit/ Total Parenteral Nutrition/Amino Acids/Dextrose/ Fat Emulsion Intravenous 1,800 ml @ 75 mls/hr TPN CONT 09/21/19 22:00 09/22/19 21:59 DC 09/21/19 23:13 75 MLS/HR Potassium Chloride/Water 100 ml @ 100 mls/hr Q1H 12/02/19 15:00 12/02/19 16:59 DC 12/02/19 17:09 100 MLS/HR Potassium Phosphate 20 mmol/ Sodium Chloride 106.6667 ml @ 51.667 m... 1X ONCE 07/13/19 13:00 07/13/19 15:03 DC 07/13/19 12:51 51.667 MLS/HR Potassium Acetate 30 meq/Magnesium Sulfate 14 meq/ Multivitamins 10 ml/Chromium/ Copper/Manganese/ Seleni/Zn 1 ml/ Insulin Human Regular 15 unit/ Sodium Chloride 20 meq/Potassium Chloride 30 meq/ Total Parenteral Nutrition/Amino Acids/Dextrose/ Fat Emulsion Intravenous 1,920 ml @ 80 mls/hr TPN CONT 10/11/19 22:00 10/12/19 21:59 DC 10/11/19 21:46 80 MLS/HR Potassium Acetate 30 meq/Magnesium Sulfate 20 meq/ Calcium Gluconate 10 meq/ Multivitamins 10 ml/Chromium/ Copper/Manganese/ Seleni/Zn 0.5 ml/ Insulin Human Regular 30 unit/ Potassium Chloride 30 meq/ Total Parenteral Nutrition/Amino Acids/Dextrose/ Fat Emulsion Intravenous 1,920 ml @ 80 mls/hr TPN CONT 08/19/19 22:00 08/20/19 21:59 DC 08/19/19 22:34 80 MLS/HR Potassium Acetate 40 meq/Magnesium Sulfate 10 meq/ Multivitamins 10 ml/Chromium/ Copper/Manganese/ Seleni/Zn 1 ml/ Insulin Human Regular 20 unit/ Total Parenteral Nutrition/Amino Acids/Dextrose/ Fat Emulsion Intravenous 1,920 ml @ 80 mls/hr TPN CONT 10/04/19 22:00 10/05/19 21:59 DC 10/04/19 21:32 80 MLS/HR Potassium Acetate 40 meq/Magnesium Sulfate 5 meq/ Multivitamins 10 ml/Chromium/ Copper/Manganese/ Seleni/Zn 1 ml/ Insulin Human Regular 30 unit/ Total Parenteral Nutrition/Amino Acids/Dextrose/ Fat Emulsion Intravenous 1,920 ml @ 80 mls/hr TPN CONT 10/03/19 22:00 10/04/19 19:34 DC 10/03/19 21:54 80 MLS/HR Potassium Acetate 55 meq/Magnesium Sulfate 20 meq/ Calcium Gluconate 10 meq/ Multivitamins 10 ml/Chromium/ Copper/Manganese/ Seleni/Zn 0.5 ml/ Insulin Human Regular 30 unit/ Total Parenteral Nutrition/Amino Acids/Dextrose/ Fat Emulsion Intravenous 1,920 ml @ 80 mls/hr TPN CONT 08/18/19 22:00 08/19/19 21:59 DC 08/19/19 01:00 80 MLS/HR Potassium Acetate 55 meq/Magnesium Sulfate 20 meq/ Calcium Gluconate 10 meq/ Multivitamins 10 ml/Chromium/ Copper/Manganese/ Seleni/Zn 0.5 ml/ Insulin Human Regular 35 unit/ Total Parenteral Nutrition/Amino Acids/Dextrose/ Fat Emulsion Intravenous 1,920 ml @ 80 mls/hr TPN CONT 08/16/19 22:00 08/17/19 21:59 DC 08/16/19 22:02 80 MLS/HR Potassium Acetate 60 meq/Magnesium Sulfate 10 meq/ Multivitamins 10 ml/Chromium/ Copper/Manganese/ Seleni/Zn 1 ml/ Insulin Human Regular 20 unit/ Total Parenteral Nutrition/Amino Acids/Dextrose/ Fat Emulsion Intravenous 1,920 ml @ 80 mls/hr TPN CONT 10/05/19 22:00 10/06/19 21:59 DC 10/05/19 21:55 80 MLS/HR Potassium Acetate 60 meq/Magnesium Sulfate 14 meq/ Multivitamins 10 ml/Chromium/ Copper/Manganese/ Seleni/Zn 1 ml/ Insulin Human Regular 15 unit/ Sodium Chloride 20 meq/Total Parenteral Nutrition/Amino Acids/Dextrose/ Fat Emulsion Intravenous 1,920 ml @ 80 mls/hr TPN CONT 10/10/19 22:00 10/11/19 21:59 DC 10/10/19 21:54 80 MLS/HR Potassium Acetate 60 meq/Magnesium Sulfate 14 meq/ Multivitamins 10 ml/Chromium/ Copper/Manganese/ Seleni/Zn 1 ml/ Insulin Human Regular 15 unit/ Total Parenteral Nutrition/Amino Acids/Dextrose/ Fat Emulsion Intravenous 1,920 ml @ 80 mls/hr TPN CONT 10/09/19 22:00 10/10/19 21:59 DC 10/09/19 22:22 80 MLS/HR Potassium Acetate 60 meq/Magnesium Sulfate 14 meq/ Multivitamins 10 ml/Chromium/ Copper/Manganese/ Seleni/Zn 1 ml/ Insulin Human Regular 20 unit/ Total Parenteral Nutrition/Amino Acids/Dextrose/ Fat Emulsion Intravenous 1,920 ml @ 80 mls/hr TPN CONT 10/06/19 22:00 10/07/19 21:59 DC 10/06/19 22:26 80 MLS/HR Potassium Acetate 60 meq/Magnesium Sulfate 5 meq/ Multivitamins 10 ml/Chromium/ Copper/Manganese/ Seleni/Zn 1 ml/ Insulin Human Regular 30 unit/ Total Parenteral Nutrition/Amino Acids/Dextrose/ Fat Emulsion Intravenous 1,920 ml @ 80 mls/hr TPN CONT 09/24/19 22:00 09/25/19 21:59 DC 09/24/19 21:54 80 MLS/HR Potassium Acetate 65 meq/Magnesium Sulfate 20 meq/ Calcium Gluconate 10 meq/ Multivitamins 10 ml/Chromium/ Copper/Manganese/ Seleni/Zn 0.5 ml/ Insulin Human Regular 30 unit/ Total Parenteral Nutrition/Amino Acids/Dextrose/ Fat Emulsion Intravenous 1,920 ml @ 80 mls/hr TPN CONT 08/17/19 22:00 08/18/19 21:59 DC 08/17/19 22:22 80 MLS/HR Potassium Acetate 80 meq/Magnesium Sulfate 5 meq/ Multivitamins 10 ml/Chromium/ Copper/Manganese/ Seleni/Zn 1 ml/ Insulin Human Regular 20 unit/ Total Parenteral Nutrition/Amino Acids/Dextrose/ Fat Emulsion Intravenous 1,920 ml @ 80 mls/hr TPN CONT 09/23/19 22:00 09/24/19 21:59 DC 09/23/19 21:59 80 MLS/HR Prochlorperazine Edisylate (Compazine) 5 mg PACU PRN PRN 08/15/19 07:00 08/16/19 06:59 DC Propofol (Diprivan) 200 mg STK-MED ONCE 10/18/19 07:44 10/18/19 07:44 DC Ringer's Solution 1,000 ml @ 75 mls/hr [id number] 12/03/19 23:00 12/04/19 14:56 75 MLS/HR Rocuronium Cropsey (Zemuron) 100 mg STK-MED ONCE 10/18/19 07:44 10/18/19 07:44 DC Saliva Substitute (Biotene Moisturizing Mouth) 2 spray PRN Q15MIN PRN 09/08/19 11:00 Sevoflurane (Ultane) 60 ml STK-MED ONCE 08/15/19 12:26 08/15/19 12:27 DC Sodium Bicarbonate 150 meq/Dextrose 1,150 ml @ 75 mls/hr 1X ONCE 10/18/19 16:30 10/19/19 07:49 DC 10/18/19 20:02 75 MLS/HR Sodium Bicarbonate 150 meq/Sterile Water 1,150 ml @ 500 mls/hr 1X ONCE 12/02/19 15:00 12/02/19 17:17 DC 12/02/19 15:23 500 MLS/HR Sodium Bicarbonate 50 meq/Sodium Chloride 1,050 ml @ 75 mls/hr 1X ONCE 12/05/19 02:00 12/05/19 15:59 12/05/19 01:42 75 MLS/HR Sodium Acetate 50 meq/Potassium Acetate 55 meq/ Magnesium Sulfate 20 meq/Calcium Gluconate 10 meq/ Multivitamins 10 ml/Chromium/ Copper/Manganese/ Seleni/Zn 0.5 ml/ Insulin Human Regular 35 unit/ Total Parenteral Nutrition/Amino Acids/Dextrose/ Fat Emulsion Intravenous 1,800 ml @ 75 mls/hr TPN CONT 08/13/19 22:00 08/14/19 21:59 DC 08/13/19 22:03 75 MLS/HR Sodium Bicarbonate (Sodium Bicarb Adult 8.4% Syr) 50 meq 1X ONCE 12/05/19 04:15 12/05/19 04:16 DC 12/05/19 04:14 50 MEQ Sodium Bicarbonate (Sodium Bicarb Ped 8.4% Syr) 50 meq 1X ONCE 12/05/19 04:15 12/05/19 04:16 UNV Sodium Chloride 1,000 ml @ 1,000 mls/hr 1X ONCE 12/02/19 13:00 12/02/19 13:59 DC 12/02/19 13:34 1,000 MLS/HR Sodium Chloride (Normal Saline Flush) 3 ml QSHIFT PRN 10/18/19 14:45 11/21/19 09:45 DC Sodium Chloride 80 meq/Potassium Chloride 30 meq/ Potassium Acetate 30 meq/Magnesium Sulfate 14 meq/ Multivitamins 10 ml/Chromium/ Copper/Manganese/ Seleni/Zn 1 ml/ Insulin Human Regular 15 unit/ Total Parenteral Nutrition/Amino Acids/Dextrose/ Fat Emulsion Intravenous 1,920 ml @ 80 mls/hr TPN CONT 10/19/19 22:00 10/20/19 21:59 DC 10/19/19 23:05 80 MLS/HR Sodium Chloride 90 meq/Calcium Gluconate 10 meq/ Multivitamins 10 ml/Chromium/ Copper/Manganese/ Seleni/Zn 0.5 ml/ Total Parenteral Nutrition/Amino Acids/Dextrose/ Fat Emulsion Intravenous 1,512 ml @ 63 mls/hr TPN CONT 07/06/19 22:00 07/07/19 21:59 DC 07/06/19 22:06 63 MLS/HR Sodium Chloride 90 meq/Calcium Gluconate 10 meq/ Multivitamins 10 ml/Chromium/ Copper/Manganese/ Seleni/Zn 1 ml/ Total Parenteral Nutrition/Amino Acids/Dextrose/ Fat Emulsion Intravenous 55.005 ml @ 2.292 mls/hr TPN CONT 07/06/19 22:00 07/06/19 12:33 DC Sodium Chloride 90 meq/Magnesium Sulfate 10 meq/ Calcium Gluconate 20 meq/ Multivitamins 10 ml/Chromium/ Copper/Manganese/ Seleni/Zn 0.5 ml/ Total Parenteral Nutrition/Amino Acids/Dextrose/ Fat Emulsion Intravenous 1,512 ml @ 63 mls/hr TPN CONT 07/07/19 22:00 07/08/19 21:59 DC 07/07/19 22:25 63 MLS/HR Sodium Chloride 90 meq/Magnesium Sulfate 12 meq/ Calcium Gluconate 15 meq/ Multivitamins 10 ml/Chromium/ Copper/Manganese/ Seleni/Zn 0.5 ml/ Insulin Human Regular 25 unit/ Total Parenteral Nutrition/Amino Acids/Dextrose/ Fat Emulsion Intravenous 1,400 ml @ 58.333 mls/ hr TPN CONT 07/27/19 22:00 07/28/19 21:59 DC 07/27/19 21:41 58.333 MLS/HR Sodium Chloride 90 meq/Potassium Chloride 15 meq/ Magnesium Sulfate 12 meq/Calcium Gluconate 15 meq/ Multivitamins 10 ml/Chromium/ Copper/Manganese/ Seleni/Zn 0.5 ml/ Insulin Human Regular 25 unit/ Total Parenteral Nutrition/Amino Acids/Dextrose/ Fat Emulsion Intravenous 1,400 ml @ 58.333 mls/ hr TPN CONT 07/26/19 22:00 07/27/19 21:59 DC 07/26/19 22:13 58.333 MLS/HR Sodium Chloride 90 meq/Potassium Chloride 15 meq/ Potassium Phosphate 10 mmol/ Magnesium Sulfate 8 meq/Calcium Gluconate 15 meq/ Multivitamins 10 ml/Chromium/ Copper/Manganese/ Seleni/Zn 0.5 ml/ Insulin Human Regular 25 unit/ Total Parenteral Nutrition/Amino Acids/Dextrose/ Fat Emulsion Intravenous 1,400 ml @ 58.333 mls/ hr TPN CONT 07/24/19 22:00 07/25/19 21:59 DC 07/24/19 21:20 58.333 MLS/HR Sodium Chloride 90 meq/Potassium Chloride 15 meq/ Potassium Phosphate 10 mmol/ Magnesium Sulfate 10 meq/Calcium Gluconate 20 meq/ Multivitamins 10 ml/Chromium/ Copper/Manganese/ Seleni/Zn 0.5 ml/ Total Parenteral Nutrition/Amino Acids/Dextrose/ Fat Emulsion Intravenous 1,400 ml @ 58.333 mls/ hr TPN CONT 07/11/19 22:00 07/12/19 21:59 DC 07/11/19 21:42 58.333 MLS/HR Sodium Chloride 90 meq/Potassium Chloride 15 meq/ Potassium Phosphate 10 mmol/ Magnesium Sulfate 12 meq/Calcium Gluconate 15 meq/ Multivitamins 10 ml/Chromium/ Copper/Manganese/ Seleni/Zn 0.5 ml/ Insulin Human Regular 25 unit/ Total Parenteral Nutrition/Amino Acids/Dextrose/ Fat Emulsion Intravenous 1,400 ml @ 58.333 mls/ hr TPN CONT 07/25/19 22:00 07/26/19 21:59 DC 07/25/19 22:24 58.333 MLS/HR Sodium Chloride 90 meq/Potassium Chloride 15 meq/ Potassium Phosphate 15 mmol/ Magnesium Sulfate 10 meq/Calcium Gluconate 15 meq/ Multivitamins 10 ml/Chromium/ Copper/Manganese/ Seleni/Zn 0.5 ml/ Total Parenteral Nutrition/Amino Acids/Dextrose/ Fat Emulsion Intravenous 1,400 ml @ 58.333 mls/ hr TPN CONT 07/12/19 22:00 07/13/19 21:59 DC 07/12/19 22:17 58.333 MLS/HR Sodium Chloride 90 meq/Potassium Chloride 15 meq/ Potassium Phosphate 15 mmol/ Magnesium Sulfate 10 meq/Calcium Gluconate 20 meq/ Multivitamins 10 ml/Chromium/ Copper/Manganese/ Seleni/Zn 0.5 ml/ Total Parenteral Nutrition/Amino Acids/Dextrose/ Fat Emulsion Intravenous 1,200 ml @ 50 mls/hr TPN CONT 07/10/19 22:00 07/10/19 14:17 DC Sodium Chloride 90 meq/Potassium Chloride 15 meq/ Potassium Phosphate 18 mmol/ Magnesium Sulfate 8 meq/Calcium Gluconate 15 meq/ Multivitamins 10 ml/Chromium/ Copper/Manganese/ Seleni/Zn 0.5 ml/ Insulin Human Regular 10 unit/ Total Parenteral Nutrition/Amino Acids/Dextrose/ Fat Emulsion Intravenous 1,400 ml @ 58.333 mls/ hr TPN CONT 07/15/19 22:00 07/16/19 21:59 DC 07/15/19 21:43 58.333 MLS/HR Sodium Chloride 90 meq/Potassium Chloride 15 meq/ Potassium Phosphate 18 mmol/ Magnesium Sulfate 8 meq/Calcium Gluconate 15 meq/ Multivitamins 10 ml/Chromium/ Copper/Manganese/ Seleni/Zn 0.5 ml/ Insulin Human Regular 15 unit/ Total Parenteral Nutrition/Amino Acids/Dextrose/ Fat Emulsion Intravenous 1,400 ml @ 58.333 mls/ hr TPN CONT 07/18/19 22:00 07/19/19 21:59 DC 07/18/19 21:47 58.333 MLS/HR Sodium Chloride 90 meq/Potassium Chloride 15 meq/ Potassium Phosphate 18 mmol/ Magnesium Sulfate 8 meq/Calcium Gluconate 15 meq/ Multivitamins 10 ml/Chromium/ Copper/Manganese/ Seleni/Zn 0.5 ml/ Insulin Human Regular 20 unit/ Total Parenteral Nutrition/Amino Acids/Dextrose/ Fat Emulsion Intravenous 1,400 ml @ 58.333 mls/ hr TPN CONT 07/21/19 22:00 07/22/19 21:59 DC 07/21/19 22:45 58.333 MLS/HR Sodium Chloride 90 meq/Potassium Chloride 15 meq/ Potassium Phosphate 18 mmol/ Magnesium Sulfate 8 meq/Calcium Gluconate 15 meq/ Multivitamins 10 ml/Chromium/ Copper/Manganese/ Seleni/Zn 0.5 ml/ Total Parenteral Nutrition/Amino Acids/Dextrose/ Fat Emulsion Intravenous 1,400 ml @ 58.333 mls/ hr TPN CONT 07/14/19 22:00 07/15/19 21:59 DC 07/14/19 22:00 58.333 MLS/HR Sodium Chloride 90 meq/Potassium Chloride 30 meq/ Potassium Acetate 30 meq/Magnesium Sulfate 15 meq/ Multivitamins 10 ml/Chromium/ Copper/Manganese/ Seleni/Zn 1 ml/ Insulin Human Regular 15 unit/ Total Parenteral Nutrition/Amino Acids/Dextrose/ Fat Emulsion Intravenous 1,680 ml @ 70 mls/hr TPN CONT 11/03/19 22:00 11/04/19 21:59 DC 11/03/19 22:06 70 MLS/HR Sodium Chloride 90 meq/Potassium Phosphate 15 mmol/ Magnesium Sulfate 12 meq/Calcium Gluconate 15 meq/ Multivitamins 10 ml/Chromium/ Copper/Manganese/ Seleni/Zn 0.5 ml/ Insulin Human Regular 30 unit/ Total Parenteral Nutrition/Amino Acids/Dextrose/ Fat Emulsion Intravenous 1,400 ml @ 58.333 mls/ hr TPN CONT 07/29/19 22:00 07/30/19 21:59 DC 07/29/19 21:49 58.333 MLS/HR Sodium Chloride 90 meq/Potassium Phosphate 15 mmol/ Magnesium Sulfate 12 meq/Calcium Gluconate 15 meq/ Multivitamins 10 ml/Chromium/ Copper/Manganese/ Seleni/Zn 0.5 ml/ Insulin Human Regular 40 unit/ Total Parenteral Nutrition/Amino Acids/Dextrose/ Fat Emulsion Intravenous 1,400 ml @ 58.333 mls/ hr TPN CONT 07/30/19 22:00 07/31/19 21:59 DC 07/30/19 21:21 58.333 MLS/HR Sodium Chloride 90 meq/Potassium Phosphate 19 mmol/ Magnesium Sulfate 12 meq/Calcium Gluconate 15 meq/ Multivitamins 10 ml/Chromium/ Copper/Manganese/ Seleni/Zn 0.5 ml/ Insulin Human Regular 40 unit/ Total Parenteral Nutrition/Amino Acids/Dextrose/ Fat Emulsion Intravenous 1,400 ml @ 58.333 mls/ hr TPN CONT 07/31/19 22:00 08/01/19 21:59 DC 07/31/19 21:54 58.333 MLS/HR Sodium Chloride 90 meq/Potassium Phosphate 5 mmol/ Magnesium Sulfate 12 meq/Calcium Gluconate 15 meq/ Multivitamins 10 ml/Chromium/ Copper/Manganese/ Seleni/Zn 0.5 ml/ Insulin Human Regular 30 unit/ Total Parenteral Nutrition/Amino Acids/Dextrose/ Fat Emulsion Intravenous 1,400 ml @ 58.333 mls/ hr TPN CONT 07/28/19 22:00 07/29/19 21:59 DC 07/28/19 22:08 58.333 MLS/HR Sodium Chloride 100 meq/Potassium Chloride 30 meq/ Potassium Acetate 30 meq/Magnesium Sulfate 12 meq/ Multivitamins 10 ml/Chromium/ Copper/Manganese/ Seleni/Zn 1 ml/ Insulin Human Regular 15 unit/ Total Parenteral Nutrition/Amino Acids/Dextrose/ Fat Emulsion Intravenous 1,680 ml @ 70 mls/hr TPN CONT 10/23/19 22:00 10/24/19 21:59 DC 10/23/19 21:23 70 MLS/HR Sodium Chloride 100 meq/Potassium Chloride 40 meq/ Magnesium Sulfate 15 meq/Calcium Gluconate 15 meq/ Multivitamins 10 ml/Chromium/ Copper/Manganese/ Seleni/Zn 0.5 ml/ Insulin Human Regular 35 unit/ Total Parenteral Nutrition/Amino Acids/Dextrose/ Fat Emulsion Intravenous 1,400 ml @ 58.333 mls/ hr TPN CONT 08/07/19 22:00 08/08/19 21:59 DC 08/07/19 22:46 58.333 MLS/HR Sodium Chloride 100 meq/Potassium Chloride 40 meq/ Magnesium Sulfate 20 meq/Calcium Gluconate 10 meq/ Multivitamins 10 ml/Chromium/ Copper/Manganese/ Seleni/Zn 0.5 ml/ Insulin Human Regular 35 unit/ Total Parenteral Nutrition/Amino Acids/Dextrose/ Fat Emulsion Intravenous 1,400 ml @ 58.333 mls/ hr TPN CONT 08/11/19 22:00 08/12/19 21:59 DC 08/12/19 00:06 58.333 MLS/HR Sodium Chloride 100 meq/Potassium Chloride 40 meq/ Magnesium Sulfate 20 meq/Calcium Gluconate 15 meq/ Multivitamins 10 ml/Chromium/ Copper/Manganese/ Seleni/Zn 0.5 ml/ Insulin Human Regular 35 unit/ Total Parenteral Nutrition/Amino Acids/Dextrose/ Fat Emulsion Intravenous 1,400 ml @ 58.333 mls/ hr TPN CONT 08/10/19 22:00 08/11/19 21:59 DC 08/10/19 22:27 58.333 MLS/HR Sodium Chloride 100 meq/Potassium Phosphate 10 mmol/ Magnesium Sulfate 12 meq/Calcium Gluconate 15 meq/ Multivitamins 10 ml/Chromium/ Copper/Manganese/ Seleni/Zn 0.5 ml/ Insulin Human Regular 35 unit/ Potassium Chloride 20 meq/ Total Parenteral Nutrition/Amino Acids/Dextrose/ Fat Emulsion Intravenous 1,400 ml @ 58.333 mls/ hr TPN CONT 08/04/19 22:00 08/05/19 21:59 DC 08/04/19 22:10 58.333 MLS/HR Sodium Chloride 100 meq/Potassium Phosphate 19 mmol/ Magnesium Sulfate 12 meq/Calcium Gluconate 15 meq/ Multivitamins 10 ml/Chromium/ Copper/Manganese/ Seleni/Zn 0.5 ml/ Insulin Human Regular 40 unit/ Potassium Chloride 20 meq/ Total Parenteral Nutrition/Amino Acids/Dextrose/ Fat Emulsion Intravenous 1,400 ml @ 58.333 mls/ hr TPN CONT 08/03/19 22:00 08/04/19 21:59 DC 08/03/19 21:20 58.333 MLS/HR Sodium Chloride 100 meq/Potassium Phosphate 5 mmol/ Magnesium Sulfate 12 meq/Calcium Gluconate 15 meq/ Multivitamins 10 ml/Chromium/ Copper/Manganese/ Seleni/Zn 0.5 ml/ Insulin Human Regular 35 unit/ Potassium Chloride 20 meq/ Total Parenteral Nutrition/Amino Acids/Dextrose/ Fat Emulsion Intravenous 1,400 ml @ 58.333 mls/ hr TPN CONT 08/05/19 22:00 08/06/19 21:59 DC 08/05/19 22:59 58.333 MLS/HR Sodium Chloride 110 meq/Potassium Chloride 30 meq/ Potassium Acetate 30 meq/Magnesium Sulfate 15 meq/ Multivitamins 10 ml/Chromium/ Copper/Manganese/ Seleni/Zn 1 ml/ Insulin Human Regular 15 unit/ Total Parenteral Nutrition/Amino Acids/Dextrose/ Fat Emulsion Intravenous 1,680 ml @ 70 mls/hr TPN CONT 11/05/19 22:00 11/06/19 21:59 DC 11/05/19 22:01 70 MLS/HR Sodium Chloride 110 meq/Sodium Phosphate 10 mmol/ Potassium Chloride 30 meq/ Potassium Acetate 30 meq/Magnesium Sulfate 15 meq/ Multivitamins 10 ml/Chromium/ Copper/Manganese/ Seleni/Zn 1 ml/ Insulin Human Regular 15 unit/ Total Parenteral Nutrition/Amino Acids/Dextrose/ Fat Emulsion Intravenous 1,680 ml @ 70 mls/hr TPN CONT 11/06/19 22:00 11/07/19 21:59 DC 11/06/19 22:03 70 MLS/HR Sodium Chloride 120 meq/Sodium Phosphate 10 mmol/ Potassium Chloride 30 meq/ Potassium Acetate 30 meq/Magnesium Sulfate 15 meq/ Multivitamins 10 ml/Chromium/ Copper/Manganese/ Seleni/Zn 1 ml/ Insulin Human Regular 15 unit/ Total Parenteral Nutrition/Amino Acids/Dextrose/ Fat Emulsion Intravenous 1,680 ml @ 70 mls/hr TPN CONT 11/13/19 22:00 11/14/19 21:59 Cancel Succinylcholine Chloride (Anectine) 120 mg 1X ONCE 07/11/19 08:30 07/11/19 08:31 DC 07/11/19 08:34 120 MG Vancomycin HCl (Vanco Per Pharmacy) 1 each PRN DAILY PRN 10/30/19 09:15 11/02/19 07:41 DC 11/01/19 02:46 1 EACH Vancomycin HCl (Vancomycin Random Level) 1 each 1X ONCE 11/01/19 01:00 11/01/19 01:01 DC 11/01/19 01:00 1 EACH Vancomycin HCl (Vancomycin Trough Level) 1 each 1X ONCE 11/02/19 09:30 11/02/19 09:31 Cancel Vancomycin HCl 1.5 gm/Sodium Chloride 500 ml @ 250 mls/hr Q12H 11/01/19 10:00 11/02/19 07:41 DC 11/01/19 22:07 250 MLS/HR Vancomycin HCl 2 gm/Sodium Chloride 500 ml @ 250 mls/hr 1X ONCE 10/30/19 10:00 10/30/19 11:59 DC 10/30/19 10:34 250 MLS/HR Vasopressin (Vasostrict) 20 unit STK-MED ONCE 10/18/19 12:23 10/18/19 12:23 DC Vasopressin 20 unit/Dextrose 101 ml @ 12 mls/hr CONT PRN 10/18/19 15:30 11/21/19 09:45 DC 10/25/19 04:17 12 MLS/HR Vecuronium Cropsey (Norcuron Bolus) 6 mg PRN Q6HRS PRN 08/25/19 19:15 08/25/19 19:35 DC Vitamin A/Vitamin D (Vitamin A & D Ointment) 1 ramu PRN Q1HR PRN 11/22/19 09:15 12/01/19 08:36 1 RAMU Zoledronic Acid 100 ml @ 400 mls/hr 1X ONCE 11/25/19 12:00 11/25/19 12:14 DC 11/25/19 13:04 400 MLS/HR Lab Laboratory Tests Test 12/04/19 11:47 12/04/19 18:09 12/04/19 23:05 12/04/19 23:30 Glucose (Fingerstick) 195 mg/dL (70-99) 171 mg/dL (70-99) O2 Saturation 97 % (92-99) Arterial Blood pH 7.22 (7.35-7.45) Arterial Blood pH (Temp corrected) 7.21 Arterial Blood pCO2 at Patient Temp 18 mmHg (35-46) Arterial Blood pCO2 (Temp correct) 19 mmHg Arterial Blood pO2 at Patient Temp 107 mmHg (75-108) Arterial Blood pO2 (Temp corrected) 112 mmHg Arterial Blood HCO3 7 mmol/L (21-28) Arterial Blood Base Excess -19 mmol/L (-3-3) FiO2 40 Hemoglobin 6.3 g/dL (12.0-15.5) Hematocrit 21.3 % (36.0-47.0) Mean Corpuscular Hemoglobin Concent 30 g/dL (31-37) Prothrombin Time 34.6 SEC (11.7-14.0) Prothromb Time International Ratio 3.4 (0.8-1.1) Test 12/05/19 00:13 12/05/19 04:01 12/05/19 06:10 12/05/19 06:20 Glucose (Fingerstick) 109 mg/dL (70-99) 107 mg/dL (70-99) 93 mg/dL (70-99) White Blood Count 39.1 x10^3/uL (4.0-11.0) Red Blood Count 2.87 x10^6/uL (3.50-5.40) Hemoglobin 8.0 g/dL (12.0-15.5) Hematocrit 26.3 % (36.0-47.0) Mean Corpuscular Volume 92 fL (79-100) Mean Corpuscular Hemoglobin 28 pg (25-35) Mean Corpuscular Hemoglobin Concent 30 g/dL (31-37) Red Cell Distribution Width 17.9 % (11.5-14.5) Platelet Count 280 x10^3/uL (140-400) Neutrophils (%) (Auto) 94 % (31-73) Lymphocytes (%) (Auto) 3 % (24-48) Monocytes (%) (Auto) 3 % (0-9) Eosinophils (%) (Auto) 0 % (0-3) Basophils (%) (Auto) 0 % (0-3) Neutrophils # (Auto) 36.9 x10^3/uL (1.8-7.7) Lymphocytes # (Auto) 1.0 x10^3/uL (1.0-4.8) Monocytes # (Auto) 1.1 x10^3/uL (0.0-1.1) Eosinophils # (Auto) 0.0 x10^3/uL (0.0-0.7) Basophils # (Auto) 0.0 x10^3/uL (0.0-0.2) Prothrombin Time 27.9 SEC (11.7-14.0) Prothromb Time International Ratio 2.6 (0.8-1.1) Sodium Level 154 mmol/L (136-145) Potassium Level 3.6 mmol/L (3.5-5.1) Chloride Level 119 mmol/L (98-107) Carbon Dioxide Level 14 mmol/L (21-32) Anion Gap 21 (6-14) Blood Urea Nitrogen 58 mg/dL (7-20) Creatinine 2.5 mg/dL (0.6-1.0) Estimated GFR (Cockcroft-Gault) 20.5 BUN/Creatinine Ratio 23 (6-20) Glucose Level 100 mg/dL (70-99) Calcium Level 7.8 mg/dL (8.5-10.1) Total Bilirubin 0.7 mg/dL (0.2-1.0) Aspartate Amino Transf (AST/SGOT) 30 U/L (15-37) Alanine Aminotransferase (ALT/SGPT) 13 U/L (14-59) Alkaline Phosphatase 338 U/L (46-116) Total Protein 4.8 g/dL (6.4-8.2) Albumin 2.0 g/dL (3.4-5.0) Albumin/Globulin Ratio 0.7 (1.0-1.7) Results All relevant outside records, renal labs, imaging studies, telemetry/EKG's were reviewed. Other Redemonstration of extensive bilateral retroperitoneal and peritoneal collections, slightly increased in the left subdiaphragmatic region but otherwise similar in configuration to prior exams. Scattered areas of high attenuation material within these collections consistent with acute blood products. The noncontrast liver is homogeneous in attenuation. Pancreas is contracted. Normal caliber bile ducts. Normal spleen. Persistent fluid around and partially securing the pancreas. Normal adrenal glands. No opaque urinary calculi. Unchanged mild right hydronephrosis. Percutaneous gastrojejunostomy tube. No dilated bowel Normal caliber abdominal aorta. No lymphadenopathy in the abdomen or pelvis. Urinary bladder is decompressed by Lind catheter. No acute osseous abnormality. IMPRESSION: Redemonstration of extensive bilateral retroperitoneal and peritoneal collections, slightly increased in the left subdiaphragmatic region but otherwise similar in configuration to prior exams. Scattered areas of high attenuation material within these collections consistent with acute blood products. Justicifation of Admission Dx: Justifications for Admission: Justification of Admission Dx: Yes VERENA KENT MD Dec 05, 2019 11:25
[2019-12-05] MEDS: fentaNYL PF VIAL 100 MCG/2 ML VIAL IVP PRN (11:51)
[2019-12-05 12:30] LABS: BASO % 0 % (0-3); EOS % 0 % (0-3); LYMPH # 1.2 x10^3/uL (1.0-4.8); LYMPH % 4 % (24-48); MEAN CORPUSCULAR HEMOGLOBIN 28 pg (25-35); MEAN CORPUSCULAR HGB CONC 31 g/dL (31-37); MEAN CORPUSCULAR VOLUME 89 fL (79-100); MONO # 1.1 x10^3/uL (0.0-1.1); MONO % 3 % (0-9); NEUT # 30.7 x10^3/uL (1.8-7.7); NEUT % 93 % (31-73); PLATELET COUNT 239 x10^3/uL (140-400); RED BLOOD COUNT 2.28 x10^6/uL (3.50-5.40); RED CELL DISTRIBUTION WIDTH 17.5 % (11.5-14.5)
[2019-12-05 12:35] LABS: HEMOGLOBIN 6.4 g/dL (12.0-15.5)
[2019-12-05 12:36] LABS: HEMATOCRIT 20.4 % (36.0-47.0)
[2019-12-05 12:42] LABS: CALCIUM 7.3 mg/dL (8.5-10.1); CREATININE 2.5 mg/dL (0.6-1.0); GFR 20.5; POTASSIUM 3.7 mmol/L (3.5-5.1)
[2019-12-05 12:47] LABS: ALBUMIN 1.9 g/dL (3.4-5.0); ALBUMIN/GLOBULIN RATIO 0.8 (1.0-1.7); MAGNESIUM 1.8 mg/dL (1.8-2.4); PHOSPHORUS 2.4 mg/dL (2.6-4.7); TOTAL BILIRUBIN 1.3 mg/dL (0.2-1.0); TOTAL PROTEIN 4.3 g/dL (6.4-8.2)
[2019-12-05] MEDS ORDERED: AVIBACTAM IV SCH (13:00)
[2019-12-05] MEDS ORDERED: NORMAL SALINE IV SCH (13:00)
[2019-12-05] MEDS ORDERED: CEFTAZIDIME IV SCH (13:00)
--- NOTE | 2019-12-05 13:11 | PDOC ---
[employer] PROGRESS NOTE Date of Service DOS: DATE: 12/05/19 TIME: 13:09 Chief Complaint Chief Complaint S/P Exp. 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 parapsilosis & PSAE 11/12 (I-merrem/ceftazidime/AZT/cefepime)) Leucocytosis Fevers, intermittent Acute gallstone pancreatitis with persistent necrosis Acute hypoxic Respiratory failure required mechanical ventilation Tracheostomy Bilateral pleural effusions/pulm edema s/p Throacentesis on 10/03/2019 HTN Intractable pain Intractable nausea Covid 19 negative Acute on chronic anemia Abd distention - U/S and CT reviewed s/p 0.4 L of opaque, debris-containing a scites was removed 08/23 Gallstone pancreatitis with necrosis. -CT A/P 09/23 showed multiple pseudocysts, slight larger on the right. s/p drains x 3, 09/24. + PSAE (MDRO-R Cefepime, Zosyn ALEXANDRA < 64) and yeast, -s/p drain 08/14. C. parapsilosis. s/p drain 08/23 + yeast & high amylase; s/p additional drain on 08/25. Drains removed. Ascites s/p paracentesis 08/02 & 08/23. C. parapsilosis JUANA. off HD. A large fluid collection in the pancreatic bed has slightly decreased in size, described below, the pancreas itself is difficult to visualize, which could be due to necrosis or obscuration of pancreatic parenchyma from the surrounding fluid collection.10/02 - 08/14 status post KAYLIN drain placement + C paropsilosis. s/p additional drains 08/25 Hypocalcemia Prediabetes s/p trach Hyperglycemia Severe protein-caloric malnutrition Extensive retroperitoneal fluid collections persist. Percutaneous drains remain within the collections in both paracolic gutters. These communicate with additional pelvic and peripancreatic collections. History of Present Illness History of Present Illness 12/04/2021 Patient seen and examined We now have had to transfer her back to the ICU she has decompensated again She is bleeding from 1 of her drains Her INR is above 3 (on its own) She is had a couple of rapid responses in the past 48 hours Her DPOA is present (Norma her daughter) Her mother is also present Discussed with RN Chart reviewed I had a long discussion with the family regarding possibly withdrawing care and they are considering their options 12/04/2019 Patient seen and examined, appears encephalopathic Patient is largely nonverbal Discussed with RN Chart reviewed 12/02 Patient without complaints. Per nurse reports some hypotension this am that improved spontaneously. 12/01 Will check Hb/Hct levels today in response to prbc; patient largely nonverbal but denies pain 11/30, increased IV fluid, cont current bolusing daily , LR increased cr better, Hgb worse today, will give 1 u PRBC 11/29. pain in legs, BP better, some better Urine outptu 11/28. dyspnea and mild distress worsened this AM. but was able to walk some with PT later. still HR 140 sometimes, 11/28/2019 Patient seen and examined Afebrile Resting in NAD Tachycardic and tachypneic overnight Recurring leukocytosis, 23.0 Chart reviewed Discussed with RN 11/26: Afebrile. Calcium down to 10.1. Little more tachycardic today with some more secretions. No O2 requirements. Does not wish to wear her speaking valve. Will check CXR. 11/25: Afebrile, weak, having more secretions not wearing a speaking valve today. WBC 10, Hb 8.8, NA 144, and K3.7, BUN 12, CR 0.5, calcium down to 10.3. After zoledronic acid 11/24: Had a rash after calcitonin injection. Discussed with nephrology with her calcium moving from 11.3-10.9 will give IV bisphosphonate today, zoledronic acid. 11/23: Hb stable. Afebrile. Weak. Calcium increased. Shortness of breath is improving. Plan for calcitonin today, lasix, and saline 11/22: Hemoglobin abnormally low on repeat has been stable 7.2. Calcium up to 10.9. She is able to work with PT, she is asking to eat. Social work is been having difficulties with both of her daughters completing the financial aspect of disability paperwork which is been prolonging her stay over the past 5 months. Plan to check PTH and to treat hypercalcemia with 1 L normal saline 40 mg of IV Lasix and repeat labs in a.m. 11/21: Not wishing to wear her speaking valve. J tube having some difficulties. Afebrile. Jamaal bedside to aid her. transferred from ICU today 11/20: No overnight events. Calcium 10.7 on AM labs. She is still a bit slow to to respond, but follows commands well. Does not want speaking valve with me. Pain is better controlled in her abdomen. Wound care to see today. Will check liver function and phos levels given her calcium elevation. 11/19: Patient seen and examined bedside. Positive fluid balance in the past 24 hours. Patient's chart, labs, images were reviewed and discussed with RN 11/18: No acute events overnight. Seen and examined at bedside. Patient had a fever 100.2. Negative fluid balance of 150 cc. Patient's chart, labs, images were reviewed and discussed with RN 11/17: Patient seen and examined at bedside. No acute events overnight. Positive fluid balance 633. Patient's chart, labs, images were reviewed and discussed with RN 11/16: Patient seen and examined bedside. No acute events overnight. Patient's chart, labs, images were reviewed and discussed with RN 11/14: Patient seen and examined bedside. Patient appears to be in no obvious pain. All drains have been adequately draining. Patient continues to be on TPN. Chart labs and imaging was reviewed. Negative fluid balance of 270 cc 11/13:Patient seen and examined in the ICU. Patient still requires extensive care. 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 Chart, labs, imaging was reviewed. UOP with + 500cc balance. 11/11: Patient seen in and examined in the ICU. She is still extremely critically ill. Appears weak, frail, and pale. Better color today with improved eye contact and expression. Discussed with RN. Chart reviewed 11/07: Patient seen and examined in the ICU, She is still extremely critically ill, Appears extremely weak frail and pale, Discussed with RN, Chart reviewed Vitals/I&O Vitals/I&O: Vital Signs Date Time Temp Pulse Resp B/P (MAP) Pulse Ox O2 Delivery O2 Flow Rate FiO2 12/05/19 12:55 100 Nasal Cannula 2.0 12/05/19 11:51 20 12/05/19 11:00 127 94/67 (76) 12/05/19 07:24 98.6 98.6 I & O 12/04/19 12/04/19 12/05/19 15:00 23:00 07:00 Intake Total 200 ml 350 ml 1585 ml Output Total 2075 ml 1400 ml Balance 200 ml -1725 ml 185 ml Physical Exam Physical Exam: GENERAL: Propped up in bed, her eyes are wide open, upward gaze, unresponsive to verbal, + visual threat HEENT: Pupils equal, oral cavity dry. NECK: Tracheostomy LUNGS: Diminished aeration bases, HEART: S1, S2, ABDOMEN: Distended, bowel sounds hypoactive, soft, GJ drain present, drainage bag in place - bloody drainage, + rectal tube : Lind in place EXTREMITIES: Generalized edema, SKIN: warm touch. NEURO: - Eyes are open, unresponsive to verbal and tactile stimuli RUE PICC site without signs of complications. PIV s clean General: Other (chronic ill, opens eyes) Heart: Normal S1, Normal S2, Other Lungs: Clear Abdomen: Soft, Other (wound with clots present) Extremities: No clubbing, No cyanosis, Other (Diffuse edema) Skin: No breakdown Labs Labs: Laboratory Tests Test 12/04/19 18:09 12/04/19 23:05 12/04/19 23:30 12/05/19 00:13 Glucose (Fingerstick) 171 mg/dL (70-99) 109 mg/dL (70-99) O2 Saturation 97 % (92-99) Arterial Blood pH 7.22 (7.35-7.45) Arterial Blood pH (Temp corrected) 7.21 Arterial Blood pCO2 at Patient Temp 18 mmHg (35-46) Arterial Blood pCO2 (Temp correct) 19 mmHg Arterial Blood pO2 at Patient Temp 107 mmHg (75-108) Arterial Blood pO2 (Temp corrected) 112 mmHg Arterial Blood HCO3 7 mmol/L (21-28) Arterial Blood Base Excess -19 mmol/L (-3-3) FiO2 40 Hemoglobin 6.3 g/dL (12.0-15.5) Hematocrit 21.3 % (36.0-47.0) Mean Corpuscular Hemoglobin Concent 30 g/dL (31-37) Prothrombin Time 34.6 SEC (11.7-14.0) Prothromb Time International Ratio 3.4 (0.8-1.1) Test 12/05/19 04:01 12/05/19 06:10 12/05/19 06:20 12/05/19 12:12 Glucose (Fingerstick) 107 mg/dL (70-99) 93 mg/dL (70-99) White Blood Count 39.1 x10^3/uL (4.0-11.0) 33.0 x10^3/uL (4.0-11.0) Red Blood Count 2.87 x10^6/uL (3.50-5.40) 2.28 x10^6/uL (3.50-5.40) Hemoglobin 8.0 g/dL (12.0-15.5) 6.4 g/dL (12.0-15.5) Hematocrit 26.3 % (36.0-47.0) 20.4 % (36.0-47.0) Mean Corpuscular Volume 92 fL (79-100) 89 fL (79-100) Mean Corpuscular Hemoglobin 28 pg (25-35) 28 pg (25-35) Mean Corpuscular Hemoglobin Concent 30 g/dL (31-37) 31 g/dL (31-37) Red Cell Distribution Width 17.9 % (11.5-14.5) 17.5 % (11.5-14.5) Platelet Count 280 x10^3/uL (140-400) 239 x10^3/uL (140-400) Neutrophils (%) (Auto) 94 % (31-73) 93 % (31-73) Lymphocytes (%) (Auto) 3 % (24-48) 4 % (24-48) Monocytes (%) (Auto) 3 % (0-9) 3 % (0-9) Eosinophils (%) (Auto) 0 % (0-3) 0 % (0-3) Basophils (%) (Auto) 0 % (0-3) 0 % (0-3) Neutrophils # (Auto) 36.9 x10^3/uL (1.8-7.7) 30.7 x10^3/uL (1.8-7.7) Lymphocytes # (Auto) 1.0 x10^3/uL (1.0-4.8) 1.2 x10^3/uL (1.0-4.8) Monocytes # (Auto) 1.1 x10^3/uL (0.0-1.1) 1.1 x10^3/uL (0.0-1.1) Eosinophils # (Auto) 0.0 x10^3/uL (0.0-0.7) 0.0 x10^3/uL (0.0-0.7) Basophils # (Auto) 0.0 x10^3/uL (0.0-0.2) 0.0 x10^3/uL (0.0-0.2) Prothrombin Time 27.9 SEC (11.7-14.0) Prothromb Time International Ratio 2.6 (0.8-1.1) Sodium Level 154 mmol/L (136-145) 153 mmol/L (136-145) Potassium Level 3.6 mmol/L (3.5-5.1) 3.7 mmol/L (3.5-5.1) Chloride Level 119 mmol/L (98-107) 118 mmol/L (98-107) Carbon Dioxide Level 14 mmol/L (21-32) 15 mmol/L (21-32) Anion Gap 21 (6-14) 20 (6-14) Blood Urea Nitrogen 58 mg/dL (7-20) 56 mg/dL (7-20) Creatinine 2.5 mg/dL (0.6-1.0) 2.5 mg/dL (0.6-1.0) Estimated GFR (Cockcroft-Gault) 20.5 20.5 BUN/Creatinine Ratio 23 (6-20) 22 (6-20) Glucose Level 100 mg/dL (70-99) 76 mg/dL (70-99) Calcium Level 7.8 mg/dL (8.5-10.1) 7.3 mg/dL (8.5-10.1) Total Bilirubin 0.7 mg/dL (0.2-1.0) 1.3 mg/dL (0.2-1.0) Aspartate Amino Transf (AST/SGOT) 30 U/L (15-37) 34 U/L (15-37) Alanine Aminotransferase (ALT/SGPT) 13 U/L (14-59) 9 U/L (14-59) Alkaline Phosphatase 338 U/L (46-116) 282 U/L (46-116) Total Protein 4.8 g/dL (6.4-8.2) 4.3 g/dL (6.4-8.2) Albumin 2.0 g/dL (3.4-5.0) 1.9 g/dL (3.4-5.0) Albumin/Globulin Ratio 0.7 (1.0-1.7) 0.8 (1.0-1.7) Phosphorus Level 2.4 mg/dL (2.6-4.7) Magnesium Level 1.8 mg/dL (1.8-2.4) Assessment and Plan Assessmemt and Plan Problems Medical Problems: (1) Acute pancreatitis Status: Acute (2) Cholelithiasis Status: Acute S/P Exp. 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 parapsilosis & PSAE 11/12 (I-merrem/ceftazidime/AZT/cefepime)) Leucocytosis Fevers, intermittent Acute gallstone pancreatitis with persistent necrosis Acute hypoxic Respiratory failure required mechanical ventilation Tracheostomy Bilateral pleural effusions/pulm edema s/p Throacentesis on 10/03/2019 HTN Intractable pain Intractable nausea Covid 19 negative Acute on chronic anemia Abd distention - U/S and CT reviewed s/p 0.4 L of opaque, debris-containing ascites was removed 08/23 Gallstone pancreatitis with necrosis. -CT A/P 09/23 showed multiple pseudocysts, slight larger on the right. s/p drains x 3, 09/24. + PSAE (MDRO-R Cefepime, Zosyn ALEXANDRA < 64) and yeast, -s/p drain 08/14. C. parapsilosis. s/p drain 08/23 + yeast & high amylase; s/p additional drain on 08/25. Drains removed. Ascites s/p paracentesis 08/02 & 08/23. C. parapsilosis JUANA. off HD. A large fluid collection in the pancreatic bed has slightly decreased in size, described below, the pancreas itself is difficult to visualize, which could be due to necrosis or obscuration of pancreatic parenchyma from the surrounding fluid collection.10/02 - 08/14 status post KAYLIN drain placement + C paropsilosis. s/p additional drains 08/25 Hypocalcemia Prediabetes s/p trach Hyperglycemia Severe protein-caloric malnutrition Extensive retroperitoneal fluid collections persist. Percutaneous drains remain within the collections in both paracolic gutters. These communicate with additional pelvic and peripancreatic collection PLAN The family is considering moving towards comfort care For now continue the following: Transfuse as needed I gave a unit of FFP I gave some vitamin K ICU monitoring Trend labs Continue current care DVT prophylaxis Full code Subspecialty input appreciated Prognosis is most likely terminal and I explained this to the family and they understand I suspect they will be going with comfort care soon Total time 32 Comment Review of Relevant I have reviewed the following items kolby (where applicable) has been applied. Medications: Current Medications Medications (Trade) Dose Ordered Sig/Yvon Route PRN Reason Start Time Stop Time Status Last Admin Dose Admin Meropenem 500 mg/ Sodium Chloride 50 ml @ 100 mls/hr Q6HRS IV 12/04/19 16:00 12/05/19 12:54 Daptomycin 480 mg/ Sodium Chloride 50 ml @ 100 mls/hr Q24H IV 12/04/19 16:00 12/04/19 18:02 Micafungin Sodium 100 mg/Dextrose 100 ml @ 100 mls/hr Q24H IV 12/04/19 15:00 12/04/19 15:29 Phytonadione (Vitamin K Ampule) 10 mg 1X ONCE SQ 12/05/19 02:00 12/05/19 02:01 DC 12/05/19 01:44 Sodium Bicarbonate 50 meq/Sodium Chloride 1,050 ml @ 75 mls/hr 1X ONCE IV 12/05/19 02:00 12/05/19 15:59 12/05/19 01:42 Sodium Bicarbonate (Sodium Bicarb Adult 8.4% Syr) 50 meq 1X ONCE IV 12/05/19 04:15 12/05/19 04:16 DC 12/05/19 04:14 Fluconazole/ Sodium Chloride 50 ml @ 100 mls/hr ONCE ONCE IV 12/05/19 10:15 12/05/19 10:44 DC 12/05/19 11:08 Justicifation of Admission Dx: Justifications for Admission: Justification of Admission Dx: Yes BEBO KIRBY III DO Dec 05, 2019 13:11
--- NOTE | 2019-12-05 13:36 | PDOC ---
Date of Service: DATE: 12/05/19 TIME: 13:31 Objective: Objective: D/w nurse from second floor earlier - to ICU after CT w/ bleeding from RUQ site, hypotension. D/w ICU - nurse - discussion of dialysis vs comfort care (decreased urine output for a couple days), family spoke w/ Dr. Dos Santos earlier. Vital Signs: Vital Signs Date Time Temp Pulse Resp B/P (MAP) Pulse Ox O2 Delivery O2 Flow Rate FiO2 12/05/19 13:27 99.1 131 32 101/49 99.1 12/05/19 12:55 100 Nasal Cannula 2.0 Labs: Laboratory Tests Test 12/04/19 18:09 12/04/19 23:05 12/04/19 23:30 12/05/19 00:13 Glucose (Fingerstick) 171 mg/dL 109 mg/dL O2 Saturation 97 % Arterial Blood pH 7.22 Arterial Blood pH (Temp corrected) 7.21 Arterial Blood pCO2 at Patient Temp 18 mmHg Arterial Blood pCO2 (Temp correct) 19 mmHg Arterial Blood pO2 at Patient Temp 107 mmHg Arterial Blood pO2 (Temp corrected) 112 mmHg Arterial Blood HCO3 7 mmol/L Arterial Blood Base Excess -19 mmol/L FiO2 40 Hemoglobin 6.3 g/dL Hematocrit 21.3 % Mean Corpuscular Hemoglobin Concent 30 g/dL Prothrombin Time 34.6 SEC Prothromb Time International Ratio 3.4 Test 12/05/19 04:01 12/05/19 06:10 12/05/19 06:20 12/05/19 12:12 Glucose (Fingerstick) 107 mg/dL 93 mg/dL White Blood Count 39.1 x10^3/uL 33.0 x10^3/uL Red Blood Count 2.87 x10^6/uL 2.28 x10^6/uL Hemoglobin 8.0 g/dL 6.4 g/dL Hematocrit 26.3 % 20.4 % Mean Corpuscular Volume 92 fL 89 fL Mean Corpuscular Hemoglobin 28 pg 28 pg Mean Corpuscular Hemoglobin Concent 30 g/dL 31 g/dL Red Cell Distribution Width 17.9 % 17.5 % Platelet Count 280 x10^3/uL 239 x10^3/uL Neutrophils (%) (Auto) 94 % 93 % Lymphocytes (%) (Auto) 3 % 4 % Monocytes (%) (Auto) 3 % 3 % Eosinophils (%) (Auto) 0 % 0 % Basophils (%) (Auto) 0 % 0 % Neutrophils # (Auto) 36.9 x10^3/uL 30.7 x10^3/uL Lymphocytes # (Auto) 1.0 x10^3/uL 1.2 x10^3/uL Monocytes # (Auto) 1.1 x10^3/uL 1.1 x10^3/uL Eosinophils # (Auto) 0.0 x10^3/uL 0.0 x10^3/uL Basophils # (Auto) 0.0 x10^3/uL 0.0 x10^3/uL Platelet Estimate Pending Prothrombin Time 27.9 SEC Prothromb Time International Ratio 2.6 Sodium Level 154 mmol/L 153 mmol/L Potassium Level 3.6 mmol/L 3.7 mmol/L Chloride Level 119 mmol/L 118 mmol/L Carbon Dioxide Level 14 mmol/L 15 mmol/L Anion Gap 21 20 Blood Urea Nitrogen 58 mg/dL 56 mg/dL Creatinine 2.5 mg/dL 2.5 mg/dL Estimated GFR (Cockcroft-Gault) 20.5 20.5 BUN/Creatinine Ratio 23 22 Glucose Level 100 mg/dL 76 mg/dL Calcium Level 7.8 mg/dL 7.3 mg/dL Total Bilirubin 0.7 mg/dL 1.3 mg/dL Aspartate Amino Transf (AST/SGOT) 30 U/L 34 U/L Alanine Aminotransferase (ALT/SGPT) 13 U/L 9 U/L Alkaline Phosphatase 338 U/L 282 U/L Total Protein 4.8 g/dL 4.3 g/dL Albumin 2.0 g/dL 1.9 g/dL Albumin/Globulin Ratio 0.7 0.8 Lactic Acid Level 5.9 mmol/L Phosphorus Level 2.4 mg/dL Magnesium Level 1.8 mg/dL BLOOD CULTURE Final GRAM NEGATIVE RODS SEEN IN 1 OF 2 BOTTLES (1 SET COLLECTED). CALLED TO ICU/ALIYA TOTH AT 1318 12/05/19 BY MARI. CULTURE SENT TO [facility] FOR FURTHER WORKUP. Imaging: CT A/P IMPRESSION: Redemonstration of extensive bilateral retroperitoneal and peritoneal collections, slightly increased in the left subdiaphragmatic region but otherwise similar in configuration to prior exams. Scattered areas of highattenuation material within these collections consistent with acute blood products. PE: GEN: exam deferred, family in room A/P: Pancreatitis, complications, s/p necrosectomy -- Other per Dr. Weber. Justicifation of Admission Dx: Justifications for Admission: Justification of Admission Dx: Yes CYNDEE FALCON Dec 05, 2019 13:36
[2019-12-05] MEDS ORDERED: SODIUM BICARBONATE VIAL 50 MEQ in IV 1/2 NORMAL SALINE 1,000 ML IV SCH (14:00)
[2019-12-05 14:03] LABS: % BANDS 52 % (0-9); % LYMPHS 6 % (24-48); % MONOS 4 % (0-10); % SEGS 38 % (35-66); NUCLEATED RBC 2
[2019-12-05 14:05] LABS: PLT ESTIMATE ADEQUATE (ADEQUATE)
--- NOTE | 2019-12-05 14:29 | NUR ---
SS following up with discharge planning. SS reviewed pt chart and discussed with pt RN. Pt transferred to ICU 102. Pt had bleed and hemoglobin dropping. Pt kidney's failing. Per RN, pt too unstable for surgery or hemodialysis initiation at this time. Pt currently has trach and is on two liters nasal canula. Pt on IV Daptomycin, Micafungin, and Meropenem. Dr. Dos Santos discussed with family. Pt's family considering comfort care at this time. SS will continue to follow for discharge planning.
[2019-12-05] MEDS ORDERED: IV NORMAL SALINE 1000ML BAG 1,000 ML IV SCH (15:06)
[2019-12-05] MEDS ORDERED: NALOXONE 0.4 MG/ML VIAL. IV PRN (15:15)
--- NOTE | 2019-12-05 16:05 | RAD ---
Single view of the chest. 12/05/2019 9:02 AM Indication: Reason: Fever and increased 02 / Spl. Instructions: / History: Comparison: Chest radiograph November 29, 2019 Discussion: Right upper extremity PICC line and tracheostomy tube are similar. Probable small left pleural effusion with underlying atelectasis is similar. Linear opacities in the right hilum likely reflect atelectasis. Low lung volumes are noted. Impression: 1. Stable tracheostomy tube and right upper extremity PICC line 2. New right perihilar opacity most likely reflecting atelectasis. Recommend short-term radiographic follow-up 3.Low lung volumes. Small left pleural effusion, similar to comparison Electronically signed by: Bobby Nobles MD (12/05/2019 4:02 PM) [id number]
--- NOTE | 2019-12-05 17:32 | PDOC ---
PULMONARY PROGRESS NOTES DATE: 12/05/19 TIME: 17:29 Subjective Pt.transfer to ICU due to bleeding from abdominal drain sites met acidosis, on 2 liters N/C Trach in place Low HGB Vitals Vital Signs Date Time Temp Pulse Resp B/P (MAP) Pulse Ox O2 Delivery O2 Flow Rate FiO2 12/05/19 15:09 129 40 100/55 (70) 77 Nasal Cannula 2.0 12/05/19 14:31 99.2 99.2 ROS: No Nausea, No Chest Pain, No Abdominal Pain, No Increase Cough General: No acute distress, Lethargic Lungs: Clear Cardiovascular: S1, S2 Abdomen: Soft, Non-tender, Other (multiple KAYLIN drains ) Extremities: Other (+1 BLE edema) Skin: Warm Labs Laboratory Tests Test 12/04/19 00:15 12/04/19 05:20 12/04/19 11:47 12/04/19 18:09 Glucose (Fingerstick) 132 mg/dL (70-99) 195 mg/dL (70-99) 171 mg/dL (70-99) White Blood Count 16.5 x10^3/uL (4.0-11.0) Red Blood Count 2.97 x10^6/uL (3.50-5.40) Hemoglobin 8.2 g/dL (12.0-15.5) Hematocrit 26.4 % (36.0-47.0) Mean Corpuscular Volume 89 fL (79-100) Mean Corpuscular Hemoglobin 28 pg (25-35) Mean Corpuscular Hemoglobin Concent 31 g/dL (31-37) Red Cell Distribution Width 20.4 % (11.5-14.5) Platelet Count 359 x10^3/uL (140-400) Neutrophils (%) (Auto) 81 % (31-73) Lymphocytes (%) (Auto) 12 % (24-48) Monocytes (%) (Auto) 7 % (0-9) Eosinophils (%) (Auto) 0 % (0-3) Basophils (%) (Auto) 0 % (0-3) Neutrophils # (Auto) 13.3 x10^3/uL (1.8-7.7) Lymphocytes # (Auto) 2.0 x10^3/uL (1.0-4.8) Monocytes # (Auto) 1.1 x10^3/uL (0.0-1.1) Eosinophils # (Auto) 0.1 x10^3/uL (0.0-0.7) Basophils # (Auto) 0.0 x10^3/uL (0.0-0.2) Segmented Neutrophils % 56 % (35-66) Band Neutrophils % 26 % (0-9) Lymphocytes % 12 % (24-48) Monocytes % 4 % (0-10) Eosinophils % 1 % (0-5) Myelocytes % 1 % (0-0) Nucleated Red Blood Cells 1 Toxic Granulation Slight Platelet Estimate Adequate (ADEQUATE) Polychromasia Present Poikilocytosis Present Anisocytosis Present Sodium Level 152 mmol/L (136-145) Potassium Level 3.2 mmol/L (3.5-5.1) Chloride Level 120 mmol/L (98-107) Carbon Dioxide Level 18 mmol/L (21-32) Anion Gap 14 (6-14) Blood Urea Nitrogen 58 mg/dL (7-20) Creatinine 2.1 mg/dL (0.6-1.0) Estimated GFR (Cockcroft-Gault) 25.0 Glucose Level 157 mg/dL (70-99) Calcium Level 7.4 mg/dL (8.5-10.1) Test 12/04/19 23:05 12/04/19 23:30 12/05/19 00:13 12/05/19 04:01 O2 Saturation 97 % (92-99) Arterial Blood pH 7.22 (7.35-7.45) Arterial Blood pH (Temp corrected) 7.21 Arterial Blood pCO2 at Patient Temp 18 mmHg (35-46) Arterial Blood pCO2 (Temp correct) 19 mmHg Arterial Blood pO2 at Patient Temp 107 mmHg (75-108) Arterial Blood pO2 (Temp corrected) 112 mmHg Arterial Blood HCO3 7 mmol/L (21-28) Arterial Blood Base Excess -19 mmol/L (-3-3) FiO2 40 Hemoglobin 6.3 g/dL (12.0-15.5) Hematocrit 21.3 % (36.0-47.0) Mean Corpuscular Hemoglobin Concent 30 g/dL (31-37) Prothrombin Time 34.6 SEC (11.7-14.0) Prothromb Time International Ratio 3.4 (0.8-1.1) Glucose (Fingerstick) 109 mg/dL (70-99) 107 mg/dL (70-99) Test 12/05/19 06:10 12/05/19 06:20 12/05/19 12:12 Glucose (Fingerstick) 93 mg/dL (70-99) White Blood Count 39.1 x10^3/uL (4.0-11.0) 33.0 x10^3/uL (4.0-11.0) Red Blood Count 2.87 x10^6/uL (3.50-5.40) 2.28 x10^6/uL (3.50-5.40) Hemoglobin 8.0 g/dL (12.0-15.5) 6.4 g/dL (12.0-15.5) Hematocrit 26.3 % (36.0-47.0) 20.4 % (36.0-47.0) Mean Corpuscular Volume 92 fL (79-100) 89 fL (79-100) Mean Corpuscular Hemoglobin 28 pg (25-35) 28 pg (25-35) Mean Corpuscular Hemoglobin Concent 30 g/dL (31-37) 31 g/dL (31-37) Red Cell Distribution Width 17.9 % (11.5-14.5) 17.5 % (11.5-14.5) Platelet Count 280 x10^3/uL (140-400) 239 x10^3/uL (140-400) Neutrophils (%) (Auto) 94 % (31-73) 93 % (31-73) Lymphocytes (%) (Auto) 3 % (24-48) 4 % (24-48) Monocytes (%) (Auto) 3 % (0-9) 3 % (0-9) Eosinophils (%) (Auto) 0 % (0-3) 0 % (0-3) Basophils (%) (Auto) 0 % (0-3) 0 % (0-3) Neutrophils # (Auto) 36.9 x10^3/uL (1.8-7.7) 30.7 x10^3/uL (1.8-7.7) Lymphocytes # (Auto) 1.0 x10^3/uL (1.0-4.8) 1.2 x10^3/uL (1.0-4.8) Monocytes # (Auto) 1.1 x10^3/uL (0.0-1.1) 1.1 x10^3/uL (0.0-1.1) Eosinophils # (Auto) 0.0 x10^3/uL (0.0-0.7) 0.0 x10^3/uL (0.0-0.7) Basophils # (Auto) 0.0 x10^3/uL (0.0-0.2) 0.0 x10^3/uL (0.0-0.2) Segmented Neutrophils % 38 % (35-66) Band Neutrophils % 52 % (0-9) Lymphocytes % 6 % (24-48) Monocytes % 4 % (0-10) Nucleated Red Blood Cells 2 Dohle Bodies Few Platelet Estimate Adequate (ADEQUATE) Prothrombin Time 27.9 SEC (11.7-14.0) Prothromb Time International Ratio 2.6 (0.8-1.1) Sodium Level 154 mmol/L (136-145) 153 mmol/L (136-145) Potassium Level 3.6 mmol/L (3.5-5.1) 3.7 mmol/L (3.5-5.1) Chloride Level 119 mmol/L (98-107) 118 mmol/L (98-107) Carbon Dioxide Level 14 mmol/L (21-32) 15 mmol/L (21-32) Anion Gap 21 (6-14) 20 (6-14) Blood Urea Nitrogen 58 mg/dL (7-20) 56 mg/dL (7-20) Creatinine 2.5 mg/dL (0.6-1.0) 2.5 mg/dL (0.6-1.0) Estimated GFR (Cockcroft-Gault) 20.5 20.5 BUN/Creatinine Ratio 23 (6-20) 22 (6-20) Glucose Level 100 mg/dL (70-99) 76 mg/dL (70-99) Calcium Level 7.8 mg/dL (8.5-10.1) 7.3 mg/dL (8.5-10.1) Total Bilirubin 0.7 mg/dL (0.2-1.0) 1.3 mg/dL (0.2-1.0) Aspartate Amino Transf (AST/SGOT) 30 U/L (15-37) 34 U/L (15-37) Alanine Aminotransferase (ALT/SGPT) 13 U/L (14-59) 9 U/L (14-59) Alkaline Phosphatase 338 U/L (46-116) 282 U/L (46-116) Total Protein 4.8 g/dL (6.4-8.2) 4.3 g/dL (6.4-8.2) Albumin 2.0 g/dL (3.4-5.0) 1.9 g/dL (3.4-5.0) Albumin/Globulin Ratio 0.7 (1.0-1.7) 0.8 (1.0-1.7) Lactic Acid Level 5.9 mmol/L (0.4-2.0) Phosphorus Level 2.4 mg/dL (2.6-4.7) Magnesium Level 1.8 mg/dL (1.8-2.4) Laboratory Tests Test 12/04/19 18:09 12/04/19 23:05 12/04/19 23:30 12/05/19 00:13 Glucose (Fingerstick) 171 mg/dL (70-99) 109 mg/dL (70-99) O2 Saturation 97 % (92-99) Arterial Blood pH 7.22 (7.35-7.45) Arterial Blood pH (Temp corrected) 7.21 Arterial Blood pCO2 at Patient Temp 18 mmHg (35-46) Arterial Blood pCO2 (Temp correct) 19 mmHg Arterial Blood pO2 at Patient Temp 107 mmHg (75-108) Arterial Blood pO2 (Temp corrected) 112 mmHg Arterial Blood HCO3 7 mmol/L (21-28) Arterial Blood Base Excess -19 mmol/L (-3-3) FiO2 40 Hemoglobin 6.3 g/dL (12.0-15.5) Hematocrit 21.3 % (36.0-47.0) Mean Corpuscular Hemoglobin Concent 30 g/dL (31-37) Prothrombin Time 34.6 SEC (11.7-14.0) Prothromb Time International Ratio 3.4 (0.8-1.1) Test 12/05/19 04:01 12/05/19 06:10 12/05/19 06:20 12/05/19 12:12 Glucose (Fingerstick) 107 mg/dL (70-99) 93 mg/dL (70-99) White Blood Count 39.1 x10^3/uL (4.0-11.0) 33.0 x10^3/uL (4.0-11.0) Red Blood Count 2.87 x10^6/uL (3.50-5.40) 2.28 x10^6/uL (3.50-5.40) Hemoglobin 8.0 g/dL (12.0-15.5) 6.4 g/dL (12.0-15.5) Hematocrit 26.3 % (36.0-47.0) 20.4 % (36.0-47.0) Mean Corpuscular Volume 92 fL (79-100) 89 fL (79-100) Mean Corpuscular Hemoglobin 28 pg (25-35) 28 pg (25-35) Mean Corpuscular Hemoglobin Concent 30 g/dL (31-37) 31 g/dL (31-37) Red Cell Distribution Width 17.9 % (11.5-14.5) 17.5 % (11.5-14.5) Platelet Count 280 x10^3/uL (140-400) 239 x10^3/uL (140-400) Neutrophils (%) (Auto) 94 % (31-73) 93 % (31-73) Lymphocytes (%) (Auto) 3 % (24-48) 4 % (24-48) Monocytes (%) (Auto) 3 % (0-9) 3 % (0-9) Eosinophils (%) (Auto) 0 % (0-3) 0 % (0-3) Basophils (%) (Auto) 0 % (0-3) 0 % (0-3) Neutrophils # (Auto) 36.9 x10^3/uL (1.8-7.7) 30.7 x10^3/uL (1.8-7.7) Lymphocytes # (Auto) 1.0 x10^3/uL (1.0-4.8) 1.2 x10^3/uL (1.0-4.8) Monocytes # (Auto) 1.1 x10^3/uL (0.0-1.1) 1.1 x10^3/uL (0.0-1.1) Eosinophils # (Auto) 0.0 x10^3/uL (0.0-0.7) 0.0 x10^3/uL (0.0-0.7) Basophils # (Auto) 0.0 x10^3/uL (0.0-0.2) 0.0 x10^3/uL (0.0-0.2) Segmented Neutrophils % 38 % (35-66) Band Neutrophils % 52 % (0-9) Lymphocytes % 6 % (24-48) Monocytes % 4 % (0-10) Nucleated Red Blood Cells 2 Dohle Bodies Few Platelet Estimate Adequate (ADEQUATE) Prothrombin Time 27.9 SEC (11.7-14.0) Prothromb Time International Ratio 2.6 (0.8-1.1) Sodium Level 154 mmol/L (136-145) 153 mmol/L (136-145) Potassium Level 3.6 mmol/L (3.5-5.1) 3.7 mmol/L (3.5-5.1) Chloride Level 119 mmol/L (98-107) 118 mmol/L (98-107) Carbon Dioxide Level 14 mmol/L (21-32) 15 mmol/L (21-32) Anion Gap 21 (6-14) 20 (6-14) Blood Urea Nitrogen 58 mg/dL (7-20) 56 mg/dL (7-20) Creatinine 2.5 mg/dL (0.6-1.0) 2.5 mg/dL (0.6-1.0) Estimated GFR (Cockcroft-Gault) 20.5 20.5 BUN/Creatinine Ratio 23 (6-20) 22 (6-20) Glucose Level 100 mg/dL (70-99) 76 mg/dL (70-99) Calcium Level 7.8 mg/dL (8.5-10.1) 7.3 mg/dL (8.5-10.1) Total Bilirubin 0.7 mg/dL (0.2-1.0) 1.3 mg/dL (0.2-1.0) Aspartate Amino Transf (AST/SGOT) 30 U/L (15-37) 34 U/L (15-37) Alanine Aminotransferase (ALT/SGPT) 13 U/L (14-59) 9 U/L (14-59) Alkaline Phosphatase 338 U/L (46-116) 282 U/L (46-116) Total Protein 4.8 g/dL (6.4-8.2) 4.3 g/dL (6.4-8.2) Albumin 2.0 g/dL (3.4-5.0) 1.9 g/dL (3.4-5.0) Albumin/Globulin Ratio 0.7 (1.0-1.7) 0.8 (1.0-1.7) Lactic Acid Level 5.9 mmol/L (0.4-2.0) Phosphorus Level 2.4 mg/dL (2.6-4.7) Magnesium Level 1.8 mg/dL (1.8-2.4) Medications Active Scripts Medications Dose Route/Sig Max Daily Dose Days Date Category Bisoprolol Fumarate 5 Mg Tablet 10 Mg PO DAILY 07/04/[address] reviewed 10/30/19, Decreased left-sided effusion after catheter placement. The right-sided effusion has increased as has atelectasis. There has been exchange or placement of multiple drainage tubes and a gastrojejunostomy tube. Both collections are smaller. No significant new abdominal fluid collection is seen. The jejunal component of the gastrojejunostomy tube appears to be looped in the proximal small bowel. ct abdomen /pelvis 09/23 1. Removal of the percutaneous pigtail drainage catheters since the prior exam. Sequela of pancreatitis with extensive pseudocysts again demonstrated, the right-sided collections are slightly larger since the prior exam, the left-sided collections are stable. See above. 2. Moderate to large left pleural effusion with atelectasis and collapse of most of the left lower lobe, stable. Small right pleural effusion is stable. 3. Gallstone. ct chest 10/02 reviewed GRAM NEG COCCOBACILLI:MANY SQUAMOUS EPI CELL:RARE PMN (WBCs):FEW Unless otherwise specified, Testing Performed by: [facility] [address] [place] [address] For Inquires, the Physician may contact the Microbiology department at [phone] RESPIRATORY CULTURE Final Final MANY GRAM NEGATIVE RODS on 10/03/19 at 1106 FINAL ID= [PSEUDOMONAS AERUGINOSA] MICRO CHARGES PSEUDOMONAS AERUGINOSA ANTIMICROBIAL SUSCEPTIBILITY Final Comment NEG ALEXANDRA 56 PSEUDOMONAS AERUGINOSA ANTIBIOTIC RESULT INTERPRETATION AMIKACIN <=16 S AZTREONAM <=4 S CEFTAZIDIME <=1 S CIPROFLOXACIN <=0.25 S CEFEPIME <=2 S CEFTAZIDIME/AVIBACTAM <=4 S GENTAMICIN <=2 S LEVOFLOXACIN <=0.5 S Impression . IMPRESSION: 1. Acute hypoxemic respiratory failure secondary to ARDS status post trach, developed anemia 09/24, blood drainage from RLQ abdomen drain site, and surrounding firmness / developed septic shock 09/24 from abdomen source, required levo 09/24-- now on 2 liters with trach s/p 3 new drains 09/24 with brown color drainage, --- off pressors. Now sig bleeding from abd drain sites, anemia, coagulopathy, met acidosis and possible sepsis S/P Exp. 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 parapsilosis & PSAE (I-merrem/ceftazidime/AZT/cefepime)) Increase R/R, hr 11/28. RESPONDED TO BICARB/ PRN SUCTION Acute gallstone pancreatitis with persistent necrosis - 07/27. CT A/P Increased ascites. 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 status post KAYLIN drain placement; C. parapsilosis. s/p drain 08/23 + yeast & high amylase; s/p additional drain on 08/25. Drains removed. -08/23. fluid devyn parapsilosis fluid, amylase high - 09/23 showed multiple pseudocysts, slight larger on the right. s/p drains x 3, 09/24. + PSAE (MDRO-R Cefepime, Zosyn ALEXANDRA < 64) and yeast, -09/24 s/p drain replacement x 3; fluid cult PSAE (MDRO), yeast; treated -10/29 CT A/P shows smaller fluid collections. -722 CT abdomen and pelvis drains in place Ascites s/p paracentesis 08/02 & 08/23. C. parapsilosis Cholelithiasis with thickening of the gallbladder wall. JUANA, Hyperkalemia, Metabolic acidosis off dialysis Acute hypoxic resp failure. trach/vent. sputum 09/30 + PSAE (I merrem) ; sputum culture November 05+ for PSAE R Merrem, sensitive to cefepime Pleural effusion status post CTS left side Abdominal fluid culture MDRO Pseudomonas, yeast Sputum culture positive 11/05 for MDRO Pseudomonas Chest tube fluid positive for 11/07 Devyn Parapsilosis S/P Exploratory laparotomy, lysis of adhesions, subtotal cholecystectomy with cholangiogram, gastrojejunostomy tube placement, pancreatic necrosectomy Plan . Reamis chronically ill with ongoing sepsis, bleeding from abd drain sites, met acidosis on 2 liters N/C, required suctioning from nursing overnight prn suction Transfuse as needed, Antibiotics per ID, Up to chair, PT/OT Follow surgery input-- DVT GI prophylaxis Dr Dos Santos to talk to DPOA for comfort care not much to add pulmonary mcmillan DVT/GI PPX Will see PRN call with any concerns VINAYAK LANDRUM MD Dec 05, 2019 17:32
[2019-12-05] MEDS ORDERED: fentaNYL HIGH DOSE PCA 55 ML IV PRN (19:00)
[2019-12-06 00:03] VITALS: BP 89/49
[2019-12-06] MEDS: IPRATRPIUM/ALBUTEROL 0.5/2.5MG 3 ML NEBU. NEB SCH ×2 (03:16)
[2019-12-06 04:07] VITALS: BP 97/43
[2019-12-06 07:23] VITALS: BP 100/43
--- NOTE | 2019-12-06 08:21 | PDOC ---
Infectious Disease Note Subjective Subjective Unresponsive Vital Sign Vital Signs Vital Signs Date Time Temp Pulse Resp B/P (MAP) Pulse Ox O2 Delivery O2 Flow Rate FiO2 12/06/19 07:23 132 27 100/43 (62) 77 Nasal Cannula 2.0 12/06/19 04:07 98.4 98.4 Physical Exam PHYSICAL EXAM GENERAL: Propped up in bed, her eyes are wide open, upward gaze, unresponsive to verbal, + visual threat HEENT: Pupils equal, oral cavity dry. NECK: Tracheostomy LUNGS: Diminished aeration bases, HEART: S1, S2, ABDOMEN: Distended, bowel sounds hypoactive, soft, GJ drain present, drainage bag in place - bloody drainage, + rectal tube : Lind in place EXTREMITIES: Generalized edema, SKIN: warm touch. NEURO: - Eyes are open, unresponsive to verbal and tactile stimuli RUE PICC site without signs of complications. PIV s clean Labs Lab Laboratory Tests Test 12/05/19 12:12 White Blood Count 33.0 x10^3/uL (4.0-11.0) Red Blood Count 2.28 x10^6/uL (3.50-5.40) Hemoglobin 6.4 g/dL (12.0-15.5) Hematocrit 20.4 % (36.0-47.0) Mean Corpuscular Volume 89 fL (79-100) Mean Corpuscular Hemoglobin 28 pg (25-35) Mean Corpuscular Hemoglobin Concent 31 g/dL (31-37) Red Cell Distribution Width 17.5 % (11.5-14.5) Platelet Count 239 x10^3/uL (140-400) Neutrophils (%) (Auto) 93 % (31-73) Lymphocytes (%) (Auto) 4 % (24-48) Monocytes (%) (Auto) 3 % (0-9) Eosinophils (%) (Auto) 0 % (0-3) Basophils (%) (Auto) 0 % (0-3) Neutrophils # (Auto) 30.7 x10^3/uL (1.8-7.7) Lymphocytes # (Auto) 1.2 x10^3/uL (1.0-4.8) Monocytes # (Auto) 1.1 x10^3/uL (0.0-1.1) Eosinophils # (Auto) 0.0 x10^3/uL (0.0-0.7) Basophils # (Auto) 0.0 x10^3/uL (0.0-0.2) Sodium Level 153 mmol/L (136-145) Potassium Level 3.7 mmol/L (3.5-5.1) Chloride Level 118 mmol/L (98-107) Carbon Dioxide Level 15 mmol/L (21-32) Anion Gap 20 (6-14) Blood Urea Nitrogen 56 mg/dL (7-20) Creatinine 2.5 mg/dL (0.6-1.0) Estimated GFR (Cockcroft-Gault) 20.5 BUN/Creatinine Ratio 22 (6-20) Glucose Level 76 mg/dL (70-99) Lactic Acid Level 5.9 mmol/L (0.4-2.0) Calcium Level 7.3 mg/dL (8.5-10.1) Phosphorus Level 2.4 mg/dL (2.6-4.7) Magnesium Level 1.8 mg/dL (1.8-2.4) Total Bilirubin 1.3 mg/dL (0.2-1.0) Aspartate Amino Transf (AST/SGOT) 34 U/L (15-37) Alanine Aminotransferase (ALT/SGPT) 9 U/L (14-59) Alkaline Phosphatase 282 U/L (46-116) Total Protein 4.3 g/dL (6.4-8.2) Albumin 1.9 g/dL (3.4-5.0) Albumin/Globulin Ratio 0.8 (1.0-1.7) Micro CT 12/04 IMPRESSION: Redemonstration of extensive bilateral retroperitoneal and peritoneal collections, slightly increased in the left subdiaphragmatic region but otherwise similar in configuration to prior exams. Scattered areas of high attenuation material within these collections consistent with acute blood products. 09/24 GRAM STAIN Final Final GRAM NEGATIVE RODS:MODERATE SQUAMOUS EPI CELL:NOT APPLICABLE PMN (WBCs):RARE YEAST:MODERATE Unless otherwise specified, Testing Performed by: [address] [address] For Inquires, the Physician may contact the Microbiology department at [phone] ANAEROBIC-AEROBIC CULTURE Preliminary Preliminary MANY GRAM NEGATIVE RODS on 09/27/19 at 1158 FINAL ID= [PSEUDOMONAS AERUGINOSA] PSEUDOMONAS AERUGINOSA ANTIMICROBIAL SUSCEPTIBILITY Preliminary Comment NEG ALEXANDRA 56 PSEUDOMONAS AERUGINOSA ANTIBIOTIC RESULT INTERPRETATION AMIKACIN <=16 S AZTREONAM >16 R CEFTAZIDIME >16 R CIPROFLOXACIN <=0.25 S CEFEPIME 16 I CEFTAZIDIME/AVIBACTAM <=4 S GENTAMICIN <=2 S CONTINUED ON NEXT PAGE RUN DATE: 09/29/19 [facility] *L[facility]* PAGE 2 RUN TIME: 1016 Specimen Inquiry SPEC: [id number] PATIENT: POLOSCOTT [id number] (Continued) Procedure Result ANTIMICROBIAL SUSCEPTIBILITY Preliminary (continued) LEVOFLOXACIN <=0.5 S MEROPENEM <=1 S PIPERACILLIN/TAZOBACTAM 64 S TOBRAMYCIN <=2 S Unless otherwise specified, Testing Performed by: [facility] [address] [place] [address] For Inquires, the Physician may contact the Microbiology department at [phone] CT Scan 09/23 IMPRESSION: 1. Removal of the percutaneous pigtail drainage catheters since the prior exam. Sequela of pancreatitis with extensive pseudocysts again demonstrated, the right-sided collections are slightly larger since the prior exam, the left-sided collections are stable. See above. 2. Moderate to large left pleural effusion with atelectasis and collapse of most of the left lower lobe, stable. Small right pleural effusion is stable. 3. Gallstone. Objective Assessment Patient with prolonged hospitalization more than 4 months Multiple medical problems Multiple surgical procedures GI bleed - s/p PRBCs/FFP/vit K Fever URINE with parapsilosis 11/27 S/P Exp. 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 parapsilosis & PSAE (I-merrem/ceftazidime/AZT/cefepime)) Leukocytosis - worse JUANA Anemia Coagulopathy Loose stool but on tube feed - WBC down and no gross fever Fever - 11/11 c-diff neg Acute gallstone pancreatitis with persistent necrosis - 07/27. CT A/P Increased ascites. 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 status post KAYLIN drain placement; C. parapsilosis. s/p drain 08/23 + yeast & high amylase; s/p additional drain on 08/25. Drains removed. -08/23. fluid devyn parapsilosis fluid, amylase high - 09/23 showed multiple pseudocysts, slight larger on the right. s/p drains x 3, 09/24. + PSAE (MDRO-R Cefepime, Zosyn ALEXANDRA < 64) and yeast, -09/24 s/p drain replacement x 3; fluid cult PSAE (MDRO), yeast; treated -10/29 CT A/P shows smaller fluid collections. -722 CT abdomen and pelvis drains in place Ascites s/p paracentesis 08/02 & 08/23. C. parapsilosis Cholelithiasis with thickening of the gallbladder wall. JUANA, Hyperkalemia, Metabolic acidosis off dialysis Acute hypoxic resp failure. trach/vent. sputum 09/30 + PSAE (I merrem) ; sputum culture November 05+ for PSAE R Merrem, sensitive to cefepime Pleural effusion status post CTS left side Abdominal fluid culture MDRO Pseudomonas, yeast Sputum culture positive 11/05 for MDRO Pseudomonas Chest tube fluid positive for 11/07 Devyn Parapsilosis Plan Plan of Care D/w nursing and now with comfort measures Please call with questions D/w nursing WILLY BARAKAT MD Dec 06, 2019 08:21
--- NOTE | 2019-12-06 09:54 | PDOC ---
DATE OF SERVICE DATE: 12/06/19 TIME: 09:53 SUBJECTIVE ROS Pt comfort measures now OBJECTIVE Vital Signs Vital Signs Date Time Temp Pulse Resp B/P (MAP) Pulse Ox O2 Delivery O2 Flow Rate FiO2 12/06/19 08:00 Nasal Cannula 2.0 12/06/19 07:23 132 27 100/43 (62) 77 12/06/19 04:07 98.4 98.4 I & 0 Intake and Output 12/06/19 07:00 Intake Total 1625 ml Output Total 545 ml Balance 1080 ml Intake Oral 0 ml IV Total 100 ml Tube Feeding 200 ml Blood Product 550 ml Blood Product IV Normal Saline Flush 775 ml Output Urine Total 245 ml Drainage Total 300 ml PHYSICAL EXAM Physical Exam GENERAL: unresponsive HEENT:OM dry NECK: Tracheostomy +, LUNGS: Diminished aeration bases, HEART: S1, S2, ABDOMEN: Distended, bowel sounds hypoactive, soft, GJ drain present, drainage bag in place - bloody drainage, + rectal tube : Lind in place EXTREMITIES: Generalized edema, SKIN: warm touch, no rash NEURO: - Unresponsive DIAGNOSIS/ASSESSMENT Assessment & Plan JUANA- suspect ATN Had JUANA earlier during hospitalization , reqd CRRT/HD with resolution of JUANA Not a candidat for any further surgical interventions per GS , comfort measures per family HypoTensive - Not on pressors currently AMS- unresponsive Acidosis- Has been recieving IV bicarb per Primary , K normal HyperNatremia - monitor GI bleed - s/p PRBCs/FFP/vit K Fever- Leukocytosis worse . on Abx HyperCalcemia- Neph was reconsulted on 11/23 seen by me Resolved , No interim Neph fu Acute gallstone pancreatitis with persistent necrosis, Cholelithiasis with thickening of the gallbladder wall. S/P Exp. Lap, SAURABH, ronel, G-J tube & pancreatic necrosectomy on 10/17 Anemia- 2/2 GI bleed, GS following Acute hypoxic resp failure. trach- was on Vent, currently on 2 Lts O2 Pleural effusion status post CTS left side- Bilateral pleural effusions/pulm edema s/p Throacentesis on 10/03/2019 Patient with prolonged hospitalization- 5 months Multiple medical problems,Multiple surgical procedures Comfort measures COMMENT/RELEVANT DATA Meds Current Medications Medications (Trade) Dose Ordered Sig/Yvon Start Time Stop Time Status Last Admin Dose Admin Acetaminophen (Tylenol Supp) 650 mg PRN Q6HRS PRN 07/12/19 10:30 11/28/19 15:43 650 MG Acetaminophen (Tylenol) 650 mg PRN Q6HRS PRN 12/04/19 04:15 12/04/19 21:02 650 MG Acetaminophen/ Hydrocodone Bitart (Lortab 5/325) 1 tab PRN Q4HRS PRN 11/10/19 16:00 12/03/19 14:27 1 TAB Acetylcysteine (Mucomyst 20% Resp Treatment) 600 mg RTBID 10/15/19 12:00 12/05/19 08:00 600 MG Albumin Human 100 ml @ 100 mls/hr Q12H 12/03/19 18:00 12/05/19 17:07 DC 12/05/19 06:05 100 MLS/HR Albuterol Sulfate (Ventolin Neb Soln) 2.5 mg 1X ONCE 07/05/19 22:30 07/05/19 22:31 DC 07/06/19 00:56 2.5 MG Albuterol/ Ipratropium (Duoneb) 3 ml Q4HRS 10/01/19 08:00 12/05/19 12:21 3 ML Alprazolam (Xanax) 0.5 mg PRN QID PRN 11/10/19 16:00 12/02/19 08:41 0.5 MG Alteplase, Recombinant (Cathflo For Central Catheter Clearance) 1 mg 1X ONCE 11/23/19 07:00 11/23/19 07:01 DC 11/23/19 09:30 1 MG Alteplase, Recombinant 4 mg/ Sodium Chloride 20 ml @ 20 mls/hr 1X ONCE 10/05/19 10:00 10/05/19 10:59 DC 10/05/19 10:09 20 MLS/HR Alteplase, Recombinant 5 mg/ Sodium Chloride 30 ml @ 30 mls/hr 1X PRN 11/23/19 06:45 UNV Amino Acids/ Glycerin/ Electrolytes 1,000 ml @ 80 mls/hr [id number] 11/13/19 10:15 11/20/19 07:07 DC 11/19/19 18:10 80 MLS/HR Artificial Tears (Artificial Tears) 1 drop PRN Q15MIN PRN 08/17/19 05:30 10/11/19 21:17 1 DROP Atenolol (Tenormin) 100 mg DAILY 07/05/19 09:00 07/04/19 20:08 DC Atropine Sulfate (ATROPINE 0.5mg SYRINGE) 0.5 mg PRN Q5MIN PRN 07/21/19 08:15 11/21/19 09:45 DC Barium Sulfate (Varibar Thin Liquid Apple) 148 gm 1X ONCE 09/13/19 11:45 09/13/19 11:49 DC Benzocaine (Hurricaine One) 1 spray 1X ONCE 07/08/19 14:30 07/08/19 14:31 DC 07/08/19 16:38 1 SPRAY Bisacodyl (Dulcolax Supp) 10 mg STK-MED ONCE 08/15/19 10:59 08/15/19 10:59 DC Bumetanide (Bumex) 2 mg DAILY 08/26/19 10:00 09/05/19 17:15 DC 09/05/19 08:07 2 MG Bupivacaine HCl/ Epinephrine Bitart (Sensorcain-Epi 0.5%-1:[id number] Mpf) 30 ml STK-MED ONCE 10/18/19 08:34 10/18/19 08:35 DC Calcitonin Barnett (Miacalcin) 400 unit BID 11/24/19 18:00 11/25/19 15:56 DC 11/24/19 18:18 400 UNIT Calcium Carbonate/ Glycine (Tums) 500 mg PRN AFTMEALHC PRN 07/06/19 17:45 08/31/19 10:25 DC Calcium Chloride 1000 mg/Sodium Chloride 110 ml @ 220 mls/hr 1X ONCE 07/05/19 22:30 07/05/19 22:59 DC 07/05/19 22:11 220 MLS/HR Calcium Chloride 3000 mg/Sodium Chloride 1,030 ml @ 50 mls/hr [id number] 07/07/19 08:00 07/09/19 15:23 DC 07/09/19 02:17 50 MLS/HR Calcium Gluconate (Calcium Gluconate) 1,000 mg 1X ONCE 12/02/19 14:45 12/02/19 14:53 DC 12/02/19 15:25 1,000 MG Calcium Gluconate 1000 mg/Sodium Chloride 110 ml @ 220 mls/hr 1X ONCE 07/06/19 03:30 07/06/19 03:59 DC 07/06/19 03:21 220 MLS/HR Calcium Gluconate 2000 mg/Sodium Chloride 120 ml @ 220 mls/hr 1X ONCE 07/06/19 07:30 07/06/19 08:02 DC 07/06/19 09:05 220 MLS/HR Cefepime HCl (Maxipime) 2 gm Q12HR 11/28/19 10:00 12/04/19 14:48 DC 12/04/19 09:32 2 GM Ceftazidime/ Avibactam 0.94 gm/ Sodium Chloride 250 ml @ 125 mls/hr Q12HR 12/05/19 13:00 12/05/19 17:07 DC Ceftazidime/ Avibactam 2.5 gm/ Sodium Chloride 250 ml @ 125 mls/hr Q8HRS 11/10/19 08:00 11/23/19 08:20 DC 11/23/19 05:38 125 MLS/HR Cellulose (Surgicel Fibrillar 1x2) 1 each STK-MED ONCE 07/25/19 11:00 07/25/19 11:01 DC Cellulose (Surgicel Hemostat 2x14) 1 each STK-MED ONCE 08/15/19 10:58 08/15/19 10:59 DC Cellulose (Surgicel Hemostat 4x8) 1 each STK-MED ONCE 08/15/19 10:58 08/15/19 10:59 DC Chlorhexidine Gluconate (Peridex) 15 ml BID 10/01/19 09:00 10/01/19 07:58 DC Ciprofloxacin/ Dextrose 200 ml @ 200 mls/hr Q12HR 10/30/19 10:00 11/08/19 08:20 DC 11/07/19 21:02 200 MLS/HR Cyclobenzaprine HCl (Flexeril) 10 mg PRN Q6HRS PRN 08/18/19 10:45 12/03/19 14:25 10 MG Daptomycin 410 mg/ Sodium Chloride 50 ml @ 100 mls/hr Q24H 09/25/19 14:00 09/28/19 08:30 DC 09/27/19 13:33 100 MLS/HR Daptomycin 430 mg/ Sodium Chloride 50 ml @ 100 mls/hr Q24H 08/13/19 13:00 08/18/19 20:58 DC 08/18/19 13:00 100 MLS/HR Daptomycin 450 mg/ Sodium Chloride 50 ml @ 100 mls/hr Q24H 09/04/19 09:00 09/08/19 08:30 DC 09/07/19 09:25 100 MLS/HR Daptomycin 480 mg/ Sodium Chloride 50 ml @ 100 mls/hr Q24H 12/04/19 16:00 12/05/19 17:07 DC 12/04/19 18:02 100 MLS/HR Daptomycin 485 mg/ Sodium Chloride 50 ml @ 100 mls/hr Q24H 08/22/19 11:00 08/30/19 07:44 DC 08/29/19 13:10 100 MLS/HR Daptomycin 500 mg/ Sodium Chloride 50 ml @ 100 mls/hr Q24H 11/13/19 09:00 11/23/19 08:20 DC 11/22/19 09:20 100 MLS/HR Desflurane (Suprane) 90 ml STK-MED ONCE 10/18/19 10:18 10/18/19 10:19 DC Dexamethasone Sodium Phosphate (Decadron) 4 mg STK-MED ONCE 08/15/19 10:56 08/15/19 10:57 DC Dexmedetomidine HCl 400 mcg/ Sodium Chloride 100 ml @ 0 mls/hr CONT PRN 07/21/19 08:15 09/17/19 18:31 DC 09/17/19 12:57 8 MLS/HR Dextrose (Dextrose 50%-Water Syringe) 12.5 gm PRN Q15MIN PRN 07/04/19 09:30 12/05/19 17:07 DC Digoxin (Lanoxin) 125 mcg 1X ONCE 07/07/19 18:00 07/07/19 18:01 DC 07/07/19 17:10 125 MCG Diphenhydramine HCl (Benadryl Oral Elixir) 12.5 mg 1X PRN PRN 12/05/19 01:30 Diphenhydramine HCl (Benadryl) 25 mg 1X ONCE 11/03/19 19:00 11/03/19 19:01 DC 11/03/19 18:56 25 MG Duloxetine HCl (Cymbalta) 30 mg DAILY 08/28/19 14:00 08/31/19 10:25 DC 08/29/19 09:48 30 MG Enoxaparin Sodium (Lovenox 100mg Syringe) 100 mg Q12HR 08/09/19 21:00 UNV Enoxaparin Sodium (Lovenox 40mg Syringe) 40 mg Q24H 10/19/19 08:00 12/05/19 17:07 DC 12/04/19 09:31 40 MG Ephedrine Sulfate (ePHEDrine PF IN SALINE SYRINGE) 50 mg STK-MED ONCE 10/18/19 14:45 10/18/19 14:45 DC Etomidate (Amidate) 8 mg 1X ONCE 07/11/19 08:30 07/11/19 08:31 DC 07/11/19 08:33 8 MG Fentanyl (Duragesic 12mcg/ Hr Patch) 1 patch Q3DAYS 10/28/19 09:00 12/05/19 17:07 DC 12/03/19 08:38 1 PATCH Fentanyl (Duragesic 50mcg/ Hr Patch) 1 patch Q72H 09/22/19 21:00 10/01/19 12:00 DC 09/22/19 21:22 1 PATCH Fentanyl Citrate 55 ml @ 0 mls/hr CONT PRN 12/05/19 19:00 12/05/19 19:39 2 MLS/HR Fentanyl Citrate (Fentanyl 2ml Vial) 100 mcg STK-MED ONCE 11/22/19 15:03 11/22/19 15:03 DC Fentanyl Citrate (Fentanyl 5ml Vial) 250 mcg 1X ONCE 08/26/19 09:15 08/26/19 09:16 DC 08/26/19 09:30 50 MCG Fluconazole/ Sodium Chloride 50 ml @ 100 mls/hr ONCE ONCE 12/05/19 10:15 12/05/19 17:07 DC 12/05/19 11:08 100 MLS/HR Flumazenil (Romazicon) 0.5 mg STK-MED ONCE 09/25/19 14:48 09/25/19 14:48 DC Fluoxetine HCl (PROzac) 20 mg QHS 09/22/19 21:00 12/05/19 17:07 DC 12/04/19 21:02 20 MG Furosemide (Lasix) 40 mg [id number] 11/24/19 09:00 11/24/19 14:01 DC 11/24/19 13:51 40 MG Haloperidol Lactate (Haldol Inj) 3 mg 1X ONCE 08/22/19 14:30 08/22/19 14:31 DC 08/22/19 14:37 3 MG Heparin Sodium (Porcine) (Hep Lock Adult) 500 unit STK-MED ONCE 07/26/19 09:29 07/26/19 09:30 DC Heparin Sodium (Porcine) (Heparin Sodium) 5,000 unit Q12HR 08/15/19 21:00 08/25/19 09:59 DC 08/24/19 20:57 5,000 UNIT Heparin Sodium (Porcine) 1000 unit/Sodium Chloride 1,001 ml @ 1,001 mls/hr 1X ONCE 10/18/19 06:00 10/18/19 06:59 DC Hydromorphone HCl (Dilaudid Standard [employer] ASSISTANT COACH) 12 mg STK-MED ONCE 08/19/19 15:50 08/30/19 11:24 DC Hydromorphone HCl (Dilaudid) 1 mg PRN Q4HRS PRN 08/22/19 19:00 09/05/19 17:10 DC 09/05/19 06:25 1 MG Info (CONTRAST GIVEN -- Rx MONITORING) 1 each PRN DAILY PRN 11/08/19 11:45 11/10/19 11:44 DC Info (Icu Electrolyte Protocol) 1 ea CONT PRN PRN 07/17/19 13:15 12/05/19 17:07 DC Info (PHARMACY MONITORING -- do not chart) 1 each PRN DAILY PRN 08/12/19 15:45 09/13/19 14:14 DC Info (Tpn Per Pharmacy) 1 each PRN DAILY PRN 07/06/19 12:30 UNV Insulin Human Lispro (HumaLOG) 0-9 UNITS Q6HRS 07/04/19 09:30 12/05/19 17:07 DC 12/02/19 12:43 5 UNITS Insulin Human Regular (HumuLIN R VIAL) 5 unit 1X ONCE 07/05/19 22:30 07/05/19 22:31 DC 07/05/19 22:14 5 UNIT Iohexol (Omnipaque 240 Mg/ml) 10 ml 1X ONCE 11/22/19 15:45 8/4/20 15:46 DC 11/22/19 15:00 10 ML Iohexol (Omnipaque 300 Mg/ml) 50 ml 1X ONCE 11/15/19 11:00 11/15/19 11:01 DC Iohexol (Omnipaque 350 Mg/ml) 90 ml 1X ONCE 07/04/19 03:30 07/04/19 03:31 DC 07/04/19 03:25 90 ML Ketorolac Tromethamine (Toradol 30mg Vial) 30 mg 1X ONCE 07/04/19 03:00 07/04/19 03:01 DC 07/04/19 02:54 30 MG Lidocaine HCl (Buffered Lidocaine 1%) 5 ml 1X ONCE 11/22/19 15:45 11/22/19 15:46 DC 11/22/19 15:00 5 ML Lidocaine HCl (Glydo (Lidocaine) Jelly) 1 ramu 1X ONCE 07/08/19 14:30 07/08/19 14:31 DC 07/08/19 16:38 1 RAMU Lidocaine HCl (Lidocaine 1% 20ml Vial) 20 ml 1X ONCE 09/25/19 15:00 09/25/19 15:01 DC 09/25/19 15:30 20 ML Lidocaine HCl (Lidocaine Pf 2% Vial) 5 ml STK-MED ONCE 10/18/19 07:44 10/18/19 07:44 DC Lidocaine HCl (Xylocaine-Mpf 1% 2ml Vial) 2 ml PRN 1X PRN 08/15/19 07:00 08/16/19 06:59 DC Linezolid/Dextrose 300 ml @ 300 mls/hr Q12HR 09/04/19 09:00 09/07/19 08:11 DC 09/06/19 21:08 300 MLS/HR Lorazepam (Ativan Inj) 4 mg PRN Q1HR PRN 12/05/19 15:15 12/06/19 01:16 2 MG Magnesium Sulfate 50 ml @ 25 mls/hr 1X ONCE 12/02/19 15:00 12/02/19 16:59 DC 12/02/19 15:24 25 MLS/HR Meropenem 1 gm/ Sodium Chloride 100 ml @ 200 mls/hr Q12HR 09/25/19 21:00 10/13/19 08:56 DC 10/13/19 08:27 200 MLS/HR Meropenem 500 mg/ Sodium Chloride 50 ml @ 100 mls/hr Q6HRS 12/04/19 16:00 12/05/19 17:07 DC 12/05/19 12:54 100 MLS/HR Methylprednisolone Sodium Succinate (SOLU-Medrol 125MG VIAL) 125 mg 1X ONCE 10/01/19 06:15 10/01/19 06:16 DC 10/01/19 06:26 125 MG Metoclopramide HCl (Reglan Vial) 10 mg PRN Q3HRS PRN 08/27/19 16:45 12/05/19 17:07 DC 09/01/19 04:25 10 MG Metoprolol Tartrate (Lopressor Vial) 5 mg 1X ONCE 11/27/19 10:45 11/27/19 10:46 DC 11/27/19 10:54 5 MG Metronidazole 100 ml @ 100 mls/hr Q12HR 11/28/19 10:00 12/04/19 14:48 DC 12/04/19 09:31 100 MLS/HR Micafungin Sodium 100 mg/Dextrose 100 ml @ 100 mls/hr Q24H 12/04/19 15:00 12/05/19 17:07 DC 12/04/19 15:29 100 MLS/HR Midazolam HCl (Versed) 2 mg 1X ONCE 09/25/19 15:00 09/25/19 15:01 DC 09/25/19 15:28 1 MG Midazolam HCl 100 mg/Sodium Chloride 100 ml @ 1 mls/hr CONT PRN 10/18/19 14:45 11/21/19 09:45 DC 10/21/19 18:48 10 MLS/HR Midazolam HCl 50 mg/Sodium Chloride 50 ml @ 0 mls/hr CONT PRN 07/11/19 08:15 07/16/19 15:59 DC 07/14/19 22:39 7 MLS/HR Morphine Sulfate (Morphine Sulfate) 1 mg PRN Q1HR PRN 10/18/19 14:45 11/21/19 09:45 DC 11/12/19 18:28 1 MG Multi-Ingred Cream/Lotion/Oil/ Oint (Artificial Tears Eye Ointment) 1 ramu PRN Q1HR PRN 07/13/19 17:30 09/21/19 14:39 DC 08/01/19 08:19 1 RAMU Multivitamins/ Minerals Therapeutic (Centrum Multivit-Mineral Liq) 5 ml DAILY 11/23/19 09:00 12/05/19 17:07 DC 12/04/19 09:30 5 ML Naloxone HCl (Narcan) 0.4 mg PRN Q2MIN PRN 12/05/19 15:15 Norepinephrine Bitartrate 8 mg/ Dextrose 258 ml @ 13.332 mls/ hr CONT PRN 09/25/19 06:30 11/21/19 09:45 DC 10/20/19 09:09 1.6 MLS/HR Ondansetron HCl (Zofran) 4 mg STK-MED ONCE 10/18/19 13:33 10/18/19 13:33 DC Pantoprazole Sodium (PROTONIX VIAL for IV PUSH) 40 mg DAILYAC 07/04/19 11:30 12/05/19 17:07 DC 12/05/19 08:57 40 MG Phenylephrine HCl (Brayden-Synephrine Inj) 10 mg STK-MED ONCE 10/18/19 13:33 10/18/19 13:33 DC Phenylephrine HCl (PHENYLEPHRINE in 0.9% NACL PF) 1 mg STK-MED ONCE 10/18/19 14:44 10/18/19 14:45 DC Phytonadione (Vitamin K Ampule) 10 mg 1X ONCE 12/05/19 02:00 12/05/19 02:01 DC 12/05/19 01:44 10 MG Piperacillin Sod/ Tazobactam Sod 3.375 gm/Sodium Chloride 50 ml @ 100 mls/hr Q6HRS 09/14/19 12:00 09/22/19 07:26 DC 09/22/19 06:10 100 MLS/HR Piperacillin Sod/ Tazobactam Sod 4.5 gm/Sodium Chloride 100 ml @ 200 mls/hr 1X ONCE 07/04/19 06:00 07/04/19 06:29 DC 07/04/19 05:44 200 MLS/HR Potassium Chloride 110 meq/ Magnesium Sulfate 20 meq/ Multivitamins 10 ml/Chromium/ Copper/Manganese/ Seleni/Zn 1 ml/ Insulin Human Regular 15 unit/ Total Parenteral Nutrition/Amino Acids/Dextrose/ Fat Emulsion Intravenous 1,800 ml @ 75 mls/hr TPN CONT 09/11/19 22:00 09/12/19 21:59 DC 09/11/19 22:48 75 MLS/HR Potassium Chloride 15 meq/ Bicarbonate Dialysis Soln w/ out KCl 5,007.5 ml @ 1,000 mls/ hr Q5H1 07/17/19 20:00 07/21/19 13:08 DC 07/20/19 18:14 1,000 MLS/HR Potassium Chloride 20 meq/ Bicarbonate Dialysis Soln w/ out KCl 5,010 ml @ 1,000 mls/hr Q5H1M 07/13/19 16:00 07/17/19 19:59 DC 07/17/19 14:54 1,000 MLS/HR Potassium Chloride 40 meq/ Potassium Acetate 60 meq/Magnesium Sulfate 10 meq/ Multivitamins 10 ml/Chromium/ Copper/Manganese/ Seleni/Zn 1 ml/ Insulin Human Regular 20 unit/ Total Parenteral Nutrition/Amino Acids/Dextrose/ Fat Emulsion Intravenous 1,800 ml @ 75 mls/hr TPN CONT 09/22/19 22:00 09/23/19 21:59 DC 09/23/19 00:03 75 MLS/HR Potassium Chloride 70 meq/ Magnesium Sulfate 20 meq/ Multivitamins 10 ml/Chromium/ Copper/Manganese/ Seleni/Zn 1 ml/ Insulin Human Regular 15 unit/ Total Parenteral Nutrition/Amino Acids/Dextrose/ Fat Emulsion Intravenous 1,800 ml @ 75 mls/hr TPN CONT 09/16/19 22:00 09/17/19 21:59 DC 09/16/19 23:13 75 MLS/HR Potassium Chloride 75 meq/ Magnesium Sulfate 15 meq/ Multivitamins 10 ml/Chromium/ Copper/Manganese/ Seleni/Zn 0.5 ml/ Insulin Human Regular 15 unit/ Total Parenteral Nutrition/Amino Acids/Dextrose/ Fat Emulsion Intravenous 1,920 ml @ 80 mls/hr TPN CONT 08/27/19 22:00 08/28/19 21:59 DC 08/27/19 22:41 80 MLS/HR Potassium Chloride 75 meq/ Magnesium Sulfate 15 meq/Calcium Gluconate 8 meq/ Multivitamins 10 ml/Chromium/ Copper/Manganese/ Seleni/Zn 0.5 ml/ Insulin Human Regular 15 unit/ Total Parenteral Nutrition/Amino Acids/Dextrose/ Fat Emulsion Intravenous 1,920 ml @ 80 mls/hr TPN CONT 08/25/19 22:00 08/26/19 21:59 DC 08/25/19 22:28 80 MLS/HR Potassium Chloride 75 meq/ Magnesium Sulfate 15 meq/Calcium Gluconate 8 meq/ Multivitamins 10 ml/Chromium/ Copper/Manganese/ Seleni/Zn 0.5 ml/ Insulin Human Regular 20 unit/ Total Parenteral Nutrition/Amino Acids/Dextrose/ Fat Emulsion Intravenous 1,920 ml @ 80 mls/hr TPN CONT 08/24/19 22:00 08/25/19 21:59 DC 08/24/19 22:00 80 MLS/HR Potassium Chloride 75 meq/ Magnesium Sulfate 15 meq/Calcium Gluconate 8 meq/ Multivitamins 10 ml/Chromium/ Copper/Manganese/ Seleni/Zn 0.5 ml/ Insulin Human Regular 25 unit/ Total Parenteral Nutrition/Amino Acids/Dextrose/ Fat Emulsion Intravenous 1,920 ml @ 80 mls/hr TPN CONT 08/22/19 22:00 08/23/19 21:59 DC 08/22/19 23:08 80 MLS/HR Potassium Chloride 75 meq/ Magnesium Sulfate 20 meq/Calcium Gluconate 10 meq/ Multivitamins 10 ml/Chromium/ Copper/Manganese/ Seleni/Zn 0.5 ml/ Insulin Human Regular 25 unit/ Total Parenteral Nutrition/Amino Acids/Dextrose/ Fat Emulsion Intravenous 1,920 ml @ 80 mls/hr TPN CONT 08/21/19 22:00 08/22/19 21:59 DC 08/21/19 22:04 80 MLS/HR Potassium Chloride 75 meq/ Magnesium Sulfate 20 meq/Calcium Gluconate 10 meq/ Multivitamins 10 ml/Chromium/ Copper/Manganese/ Seleni/Zn 0.5 ml/ Insulin Human Regular 30 unit/ Total Parenteral Nutrition/Amino Acids/Dextrose/ Fat Emulsion Intravenous 1,920 ml @ 80 mls/hr TPN CONT 08/20/19 22:00 08/21/19 22:00 DC 08/20/19 21:51 80 MLS/HR Potassium Chloride 80 meq/ Magnesium Sulfate 20 meq/ Multivitamins 10 ml/Chromium/ Copper/Manganese/ Seleni/Zn 0.5 ml/ Insulin Human Regular 15 unit/ Total Parenteral Nutrition/Amino Acids/Dextrose/ Fat Emulsion Intravenous 1,920 ml @ 80 mls/hr TPN CONT 08/30/19 22:00 08/31/19 21:59 DC 08/30/19 21:40 80 MLS/HR Potassium Chloride 80 meq/ Magnesium Sulfate 20 meq/ Multivitamins 10 ml/Chromium/ Copper/Manganese/ Seleni/Zn 1 ml/ Insulin Human Regular 15 unit/ Total Parenteral Nutrition/Amino Acids/Dextrose/ Fat Emulsion Intravenous 1,800 ml @ 75 mls/hr TPN CONT 09/18/19 22:00 09/19/19 21:59 DC 09/18/19 21:54 75 MLS/HR Potassium Chloride 90 meq/ Magnesium Sulfate 20 meq/ Multivitamins 10 ml/Chromium/ Copper/Manganese/ Seleni/Zn 1 ml/ Insulin Human Regular 15 unit/ Total Parenteral Nutrition/Amino Acids/Dextrose/ Fat Emulsion Intravenous 1,800 ml @ 75 mls/hr TPN CONT 09/07/19 22:00 09/08/19 21:59 DC 09/07/19 22:28 75 MLS/HR Potassium Chloride 90 meq/ Magnesium Sulfate 20 meq/ Multivitamins 10 ml/Chromium/ Copper/Manganese/ Seleni/Zn 1 ml/ Insulin Human Regular 20 unit/ Total Parenteral Nutrition/Amino Acids/Dextrose/ Fat Emulsion Intravenous 1,800 ml @ 75 mls/hr TPN CONT 09/21/19 22:00 09/22/19 21:59 DC 09/21/19 23:13 75 MLS/HR Potassium Chloride/Water 100 ml @ 100 mls/hr Q1H 12/02/19 15:00 12/02/19 16:59 DC 12/02/19 17:09 100 MLS/HR Potassium Phosphate 20 mmol/ Sodium Chloride 106.6667 ml @ 51.667 m... 1X ONCE 07/13/19 13:00 07/13/19 15:03 DC 07/13/19 12:51 51.667 MLS/HR Potassium Acetate 30 meq/Magnesium Sulfate 14 meq/ Multivitamins 10 ml/Chromium/ Copper/Manganese/ Seleni/Zn 1 ml/ Insulin Human Regular 15 unit/ Sodium Chloride 20 meq/Potassium Chloride 30 meq/ Total Parenteral Nutrition/Amino Acids/Dextrose/ Fat Emulsion Intravenous 1,920 ml @ 80 mls/hr TPN CONT 10/11/19 22:00 10/12/19 21:59 DC 10/11/19 21:46 80 MLS/HR Potassium Acetate 30 meq/Magnesium Sulfate 20 meq/ Calcium Gluconate 10 meq/ Multivitamins 10 ml/Chromium/ Copper/Manganese/ Seleni/Zn 0.5 ml/ Insulin Human Regular 30 unit/ Potassium Chloride 30 meq/ Total Parenteral Nutrition/Amino Acids/Dextrose/ Fat Emulsion Intravenous 1,920 ml @ 80 mls/hr TPN CONT 08/19/19 22:00 08/20/19 21:59 DC 08/19/19 22:34 80 MLS/HR Potassium Acetate 40 meq/Magnesium Sulfate 10 meq/ Multivitamins 10 ml/Chromium/ Copper/Manganese/ Seleni/Zn 1 ml/ Insulin Human Regular 20 unit/ Total Parenteral Nutrition/Amino Acids/Dextrose/ Fat Emulsion Intravenous 1,920 ml @ 80 mls/hr TPN CONT 10/04/19 22:00 10/05/19 21:59 DC 10/04/19 21:32 80 MLS/HR Potassium Acetate 40 meq/Magnesium Sulfate 5 meq/ Multivitamins 10 ml/Chromium/ Copper/Manganese/ Seleni/Zn 1 ml/ Insulin Human Regular 30 unit/ Total Parenteral Nutrition/Amino Acids/Dextrose/ Fat Emulsion Intravenous 1,920 ml @ 80 mls/hr TPN CONT 10/03/19 22:00 10/04/19 19:34 DC 10/03/19 21:54 80 MLS/HR Potassium Acetate 55 meq/Magnesium Sulfate 20 meq/ Calcium Gluconate 10 meq/ Multivitamins 10 ml/Chromium/ Copper/Manganese/ Seleni/Zn 0.5 ml/ Insulin Human Regular 30 unit/ Total Parenteral Nutrition/Amino Acids/Dextrose/ Fat Emulsion Intravenous 1,920 ml @ 80 mls/hr TPN CONT 08/18/19 22:00 08/19/19 21:59 DC 08/19/19 01:00 80 MLS/HR Potassium Acetate 55 meq/Magnesium Sulfate 20 meq/ Calcium Gluconate 10 meq/ Multivitamins 10 ml/Chromium/ Copper/Manganese/ Seleni/Zn 0.5 ml/ Insulin Human Regular 35 unit/ Total Parenteral Nutrition/Amino Acids/Dextrose/ Fat Emulsion Intravenous 1,920 ml @ 80 mls/hr TPN CONT 08/16/19 22:00 08/17/19 21:59 DC 08/16/19 22:02 80 MLS/HR Potassium Acetate 60 meq/Magnesium Sulfate 10 meq/ Multivitamins 10 ml/Chromium/ Copper/Manganese/ Seleni/Zn 1 ml/ Insulin Human Regular 20 unit/ Total Parenteral Nutrition/Amino Acids/Dextrose/ Fat Emulsion Intravenous 1,920 ml @ 80 mls/hr TPN CONT 10/05/19 22:00 10/06/19 21:59 DC 10/05/19 21:55 80 MLS/HR Potassium Acetate 60 meq/Magnesium Sulfate 14 meq/ Multivitamins 10 ml/Chromium/ Copper/Manganese/ Seleni/Zn 1 ml/ Insulin Human Regular 15 unit/ Sodium Chloride 20 meq/Total Parenteral Nutrition/Amino Acids/Dextrose/ Fat Emulsion Intravenous 1,920 ml @ 80 mls/hr TPN CONT 10/10/19 22:00 10/11/19 21:59 DC 10/10/19 21:54 80 MLS/HR Potassium Acetate 60 meq/Magnesium Sulfate 14 meq/ Multivitamins 10 ml/Chromium/ Copper/Manganese/ Seleni/Zn 1 ml/ Insulin Human Regular 15 unit/ Total Parenteral Nutrition/Amino Acids/Dextrose/ Fat Emulsion Intravenous 1,920 ml @ 80 mls/hr TPN CONT 10/09/19 22:00 10/10/19 21:59 DC 10/09/19 22:22 80 MLS/HR Potassium Acetate 60 meq/Magnesium Sulfate 14 meq/ Multivitamins 10 ml/Chromium/ Copper/Manganese/ Seleni/Zn 1 ml/ Insulin Human Regular 20 unit/ Total Parenteral Nutrition/Amino Acids/Dextrose/ Fat Emulsion Intravenous 1,920 ml @ 80 mls/hr TPN CONT 10/06/19 22:00 10/07/19 21:59 DC 10/06/19 22:26 80 MLS/HR Potassium Acetate 60 meq/Magnesium Sulfate 5 meq/ Multivitamins 10 ml/Chromium/ Copper/Manganese/ Seleni/Zn 1 ml/ Insulin Human Regular 30 unit/ Total Parenteral Nutrition/Amino Acids/Dextrose/ Fat Emulsion Intravenous 1,920 ml @ 80 mls/hr TPN CONT 09/24/19 22:00 09/25/19 21:59 DC 09/24/19 21:54 80 MLS/HR Potassium Acetate 65 meq/Magnesium Sulfate 20 meq/ Calcium Gluconate 10 meq/ Multivitamins 10 ml/Chromium/ Copper/Manganese/ Seleni/Zn 0.5 ml/ Insulin Human Regular 30 unit/ Total Parenteral Nutrition/Amino Acids/Dextrose/ Fat Emulsion Intravenous 1,920 ml @ 80 mls/hr TPN CONT 08/17/19 22:00 08/18/19 21:59 DC 08/17/19 22:22 80 MLS/HR Potassium Acetate 80 meq/Magnesium Sulfate 5 meq/ Multivitamins 10 ml/Chromium/ Copper/Manganese/ Seleni/Zn 1 ml/ Insulin Human Regular 20 unit/ Total Parenteral Nutrition/Amino Acids/Dextrose/ Fat Emulsion Intravenous 1,920 ml @ 80 mls/hr TPN CONT 09/23/19 22:00 09/24/19 21:59 DC 09/23/19 21:59 80 MLS/HR Prochlorperazine Edisylate (Compazine) 5 mg PACU PRN PRN 08/15/19 07:00 08/16/19 06:59 DC Propofol (Diprivan) 200 mg STK-MED ONCE 10/18/19 07:44 10/18/19 07:44 DC Ringer's Solution 1,000 ml @ 75 mls/hr [id number] 12/03/19 23:00 12/05/19 17:07 DC 12/05/19 13:29 75 MLS/HR Rocuronium [place] (Zemuron) 100 mg STK-MED ONCE 10/18/19 07:44 10/18/19 07:44 DC Saliva Substitute (Biotene Moisturizing Mouth) 2 spray PRN Q15MIN PRN 09/08/19 11:00 Sevoflurane (Ultane) 60 ml STK-MED ONCE 08/15/19 12:26 08/15/19 12:27 DC Sodium Bicarbonate 150 meq/Dextrose 1,150 ml @ 75 mls/hr 1X ONCE 10/18/19 16:30 10/19/19 07:49 DC 10/18/19 20:02 75 MLS/HR Sodium Bicarbonate 150 meq/Sterile Water 1,150 ml @ 500 mls/hr 1X ONCE 12/02/19 15:00 12/02/19 17:17 DC 12/02/19 15:23 500 MLS/HR Sodium Bicarbonate 50 meq/Sodium Chloride 1,050 ml @ 75 mls/hr Q14H 12/05/19 14:00 12/05/19 17:07 DC 12/05/19 14:00 75 MLS/HR Sodium Acetate 50 meq/Potassium Acetate 55 meq/ Magnesium Sulfate 20 meq/Calcium Gluconate 10 meq/ Multivitamins 10 ml/Chromium/ Copper/Manganese/ Seleni/Zn 0.5 ml/ Insulin Human Regular 35 unit/ Total Parenteral Nutrition/Amino Acids/Dextrose/ Fat Emulsion Intravenous 1,800 ml @ 75 mls/hr TPN CONT 08/13/19 22:00 08/14/19 21:59 DC 08/13/19 22:03 75 MLS/HR Sodium Bicarbonate (Sodium Bicarb Adult 8.4% Syr) 50 meq 1X ONCE 12/05/19 04:15 12/05/19 04:16 DC 12/05/19 04:14 50 MEQ Sodium Bicarbonate (Sodium Bicarb Ped 8.4% Syr) 50 meq 1X ONCE 12/05/19 04:15 12/05/19 04:16 UNV Sodium Chloride 1,000 ml @ 25 mls/hr Q24H 12/05/19 15:06 12/05/19 17:07 DC Sodium Chloride (Normal Saline Flush) 3 ml QSHIFT PRN 10/18/19 14:45 11/21/19 09:45 DC Sodium Chloride 80 meq/Potassium Chloride 30 meq/ Potassium Acetate 30 meq/Magnesium Sulfate 14 meq/ Multivitamins 10 ml/Chromium/ Copper/Manganese/ Seleni/Zn 1 ml/ Insulin Human Regular 15 unit/ Total Parenteral Nutrition/Amino Acids/Dextrose/ Fat Emulsion Intravenous 1,920 ml @ 80 mls/hr TPN CONT 10/19/19 22:00 10/20/19 21:59 DC 10/19/19 23:05 80 MLS/HR Sodium Chloride 90 meq/Calcium Gluconate 10 meq/ Multivitamins 10 ml/Chromium/ Copper/Manganese/ Seleni/Zn 0.5 ml/ Total Parenteral Nutrition/Amino Acids/Dextrose/ Fat Emulsion Intravenous 1,512 ml @ 63 mls/hr TPN CONT 07/06/19 22:00 07/07/19 21:59 DC 07/06/19 22:06 63 MLS/HR Sodium Chloride 90 meq/Calcium Gluconate 10 meq/ Multivitamins 10 ml/Chromium/ Copper/Manganese/ Seleni/Zn 1 ml/ Total Parenteral Nutrition/Amino Acids/Dextrose/ Fat Emulsion Intravenous 55.005 ml @ 2.292 mls/hr TPN CONT 07/06/19 22:00 07/06/19 12:33 DC Sodium Chloride 90 meq/Magnesium Sulfate 10 meq/ Calcium Gluconate 20 meq/ Multivitamins 10 ml/Chromium/ Copper/Manganese/ Seleni/Zn 0.5 ml/ Total Parenteral Nutrition/Amino Acids/Dextrose/ Fat Emulsion Intravenous 1,512 ml @ 63 mls/hr TPN CONT 07/07/19 22:00 07/08/19 21:59 DC 07/07/19 22:25 63 MLS/HR Sodium Chloride 90 meq/Magnesium Sulfate 12 meq/ Calcium Gluconate 15 meq/ Multivitamins 10 ml/Chromium/ Copper/Manganese/ Seleni/Zn 0.5 ml/ Insulin Human Regular 25 unit/ Total Parenteral Nutrition/Amino Acids/Dextrose/ Fat Emulsion Intravenous 1,400 ml @ 58.333 mls/ hr TPN CONT 07/27/19 22:00 07/28/19 21:59 DC 07/27/19 21:41 58.333 MLS/HR Sodium Chloride 90 meq/Potassium Chloride 15 meq/ Magnesium Sulfate 12 meq/Calcium Gluconate 15 meq/ Multivitamins 10 ml/Chromium/ Copper/Manganese/ Seleni/Zn 0.5 ml/ Insulin Human Regular 25 unit/ Total Parenteral Nutrition/Amino Acids/Dextrose/ Fat Emulsion Intravenous 1,400 ml @ 58.333 mls/ hr TPN CONT 07/26/19 22:00 07/27/19 21:59 DC 07/26/19 22:13 58.333 MLS/HR Sodium Chloride 90 meq/Potassium Chloride 15 meq/ Potassium Phosphate 10 mmol/ Magnesium Sulfate 8 meq/Calcium Gluconate 15 meq/ Multivitamins 10 ml/Chromium/ Copper/Manganese/ Seleni/Zn 0.5 ml/ Insulin Human Regular 25 unit/ Total Parenteral Nutrition/Amino Acids/Dextrose/ Fat Emulsion Intravenous 1,400 ml @ 58.333 mls/ hr TPN CONT 07/24/19 22:00 07/25/19 21:59 DC 07/24/19 21:20 58.333 MLS/HR Sodium Chloride 90 meq/Potassium Chloride 15 meq/ Potassium Phosphate 10 mmol/ Magnesium Sulfate 10 meq/Calcium Gluconate 20 meq/ Multivitamins 10 ml/Chromium/ Copper/Manganese/ Seleni/Zn 0.5 ml/ Total Parenteral Nutrition/Amino Acids/Dextrose/ Fat Emulsion Intravenous 1,400 ml @ 58.333 mls/ hr TPN CONT 07/11/19 22:00 07/12/19 21:59 DC 07/11/19 21:42 58.333 MLS/HR Sodium Chloride 90 meq/Potassium Chloride 15 meq/ Potassium Phosphate 10 mmol/ Magnesium Sulfate 12 meq/Calcium Gluconate 15 meq/ Multivitamins 10 ml/Chromium/ Copper/Manganese/ Seleni/Zn 0.5 ml/ Insulin Human Regular 25 unit/ Total Parenteral Nutrition/Amino Acids/Dextrose/ Fat Emulsion Intravenous 1,400 ml @ 58.333 mls/ hr TPN CONT 07/25/19 22:00 07/26/19 21:59 DC 07/25/19 22:24 58.333 MLS/HR Sodium Chloride 90 meq/Potassium Chloride 15 meq/ Potassium Phosphate 15 mmol/ Magnesium Sulfate 10 meq/Calcium Gluconate 15 meq/ Multivitamins 10 ml/Chromium/ Copper/Manganese/ Seleni/Zn 0.5 ml/ Total Parenteral Nutrition/Amino Acids/Dextrose/ Fat Emulsion Intravenous 1,400 ml @ 58.333 mls/ hr TPN CONT 07/12/19 22:00 07/13/19 21:59 DC 07/12/19 22:17 58.333 MLS/HR Sodium Chloride 90 meq/Potassium Chloride 15 meq/ Potassium Phosphate 15 mmol/ Magnesium Sulfate 10 meq/Calcium Gluconate 20 meq/ Multivitamins 10 ml/Chromium/ Copper/Manganese/ Seleni/Zn 0.5 ml/ Total Parenteral Nutrition/Amino Acids/Dextrose/ Fat Emulsion Intravenous 1,200 ml @ 50 mls/hr TPN CONT 07/10/19 22:00 07/10/19 14:17 DC Sodium Chloride 90 meq/Potassium Chloride 15 meq/ Potassium Phosphate 18 mmol/ Magnesium Sulfate 8 meq/Calcium Gluconate 15 meq/ Multivitamins 10 ml/Chromium/ Copper/Manganese/ Seleni/Zn 0.5 ml/ Insulin Human Regular 10 unit/ Total Parenteral Nutrition/Amino Acids/Dextrose/ Fat Emulsion Intravenous 1,400 ml @ 58.333 mls/ hr TPN CONT 07/15/19 22:00 07/16/19 21:59 DC 07/15/19 21:43 58.333 MLS/HR Sodium Chloride 90 meq/Potassium Chloride 15 meq/ Potassium Phosphate 18 mmol/ Magnesium Sulfate 8 meq/Calcium Gluconate 15 meq/ Multivitamins 10 ml/Chromium/ Copper/Manganese/ Seleni/Zn 0.5 ml/ Insulin Human Regular 15 unit/ Total Parenteral Nutrition/Amino Acids/Dextrose/ Fat Emulsion Intravenous 1,400 ml @ 58.333 mls/ hr TPN CONT 07/18/19 22:00 07/19/19 21:59 DC 07/18/19 21:47 58.333 MLS/HR Sodium Chloride 90 meq/Potassium Chloride 15 meq/ Potassium Phosphate 18 mmol/ Magnesium Sulfate 8 meq/Calcium Gluconate 15 meq/ Multivitamins 10 ml/Chromium/ Copper/Manganese/ Seleni/Zn 0.5 ml/ Insulin Human Regular 20 unit/ Total Parenteral Nutrition/Amino Acids/Dextrose/ Fat Emulsion Intravenous 1,400 ml @ 58.333 mls/ hr TPN CONT 07/21/19 22:00 07/22/19 21:59 DC 07/21/19 22:45 58.333 MLS/HR Sodium Chloride 90 meq/Potassium Chloride 15 meq/ Potassium Phosphate 18 mmol/ Magnesium Sulfate 8 meq/Calcium Gluconate 15 meq/ Multivitamins 10 ml/Chromium/ Copper/Manganese/ Seleni/Zn 0.5 ml/ Total Parenteral Nutrition/Amino Acids/Dextrose/ Fat Emulsion Intravenous 1,400 ml @ 58.333 mls/ hr TPN CONT 07/14/19 22:00 07/15/19 21:59 DC 07/14/19 22:00 58.333 MLS/HR Sodium Chloride 90 meq/Potassium Chloride 30 meq/ Potassium Acetate 30 meq/Magnesium Sulfate 15 meq/ Multivitamins 10 ml/Chromium/ Copper/Manganese/ Seleni/Zn 1 ml/ Insulin Human Regular 15 unit/ Total Parenteral Nutrition/Amino Acids/Dextrose/ Fat Emulsion Intravenous 1,680 ml @ 70 mls/hr TPN CONT 11/03/19 22:00 11/04/19 21:59 DC 11/03/19 22:06 70 MLS/HR Sodium Chloride 90 meq/Potassium Phosphate 15 mmol/ Magnesium Sulfate 12 meq/Calcium Gluconate 15 meq/ Multivitamins 10 ml/Chromium/ Copper/Manganese/ Seleni/Zn 0.5 ml/ Insulin Human Regular 30 unit/ Total Parenteral Nutrition/Amino Acids/Dextrose/ Fat Emulsion Intravenous 1,400 ml @ 58.333 mls/ hr TPN CONT 07/29/19 22:00 07/30/19 21:59 DC 07/29/19 21:49 58.333 MLS/HR Sodium Chloride 90 meq/Potassium Phosphate 15 mmol/ Magnesium Sulfate 12 meq/Calcium Gluconate 15 meq/ Multivitamins 10 ml/Chromium/ Copper/Manganese/ Seleni/Zn 0.5 ml/ Insulin Human Regular 40 unit/ Total Parenteral Nutrition/Amino Acids/Dextrose/ Fat Emulsion Intravenous 1,400 ml @ 58.333 mls/ hr TPN CONT 07/30/19 22:00 07/31/19 21:59 DC 07/30/19 21:21 58.333 MLS/HR Sodium Chloride 90 meq/Potassium Phosphate 19 mmol/ Magnesium Sulfate 12 meq/Calcium Gluconate 15 meq/ Multivitamins 10 ml/Chromium/ Copper/Manganese/ Seleni/Zn 0.5 ml/ Insulin Human Regular 40 unit/ Total Parenteral Nutrition/Amino Acids/Dextrose/ Fat Emulsion Intravenous 1,400 ml @ 58.333 mls/ hr TPN CONT 07/31/19 22:00 08/01/19 21:59 DC 07/31/19 21:54 58.333 MLS/HR Sodium Chloride 90 meq/Potassium Phosphate 5 mmol/ Magnesium Sulfate 12 meq/Calcium Gluconate 15 meq/ Multivitamins 10 ml/Chromium/ Copper/Manganese/ Seleni/Zn 0.5 ml/ Insulin Human Regular 30 unit/ Total Parenteral Nutrition/Amino Acids/Dextrose/ Fat Emulsion Intravenous 1,400 ml @ 58.333 mls/ hr TPN CONT 07/28/19 22:00 07/29/19 21:59 DC 07/28/19 22:08 58.333 MLS/HR Sodium Chloride 100 meq/Potassium Chloride 30 meq/ Potassium Acetate 30 meq/Magnesium Sulfate 12 meq/ Multivitamins 10 ml/Chromium/ Copper/Manganese/ Seleni/Zn 1 ml/ Insulin Human Regular 15 unit/ Total Parenteral Nutrition/Amino Acids/Dextrose/ Fat Emulsion Intravenous 1,680 ml @ 70 mls/hr TPN CONT 10/23/19 22:00 10/24/19 21:59 DC 10/23/19 21:23 70 MLS/HR Sodium Chloride 100 meq/Potassium Chloride 40 meq/ Magnesium Sulfate 15 meq/Calcium Gluconate 15 meq/ Multivitamins 10 ml/Chromium/ Copper/Manganese/ Seleni/Zn 0.5 ml/ Insulin Human Regular 35 unit/ Total Parenteral Nutrition/Amino Acids/Dextrose/ Fat Emulsion Intravenous 1,400 ml @ 58.333 mls/ hr TPN CONT 08/07/19 22:00 08/08/19 21:59 DC 08/07/19 22:46 58.333 MLS/HR Sodium Chloride 100 meq/Potassium Chloride 40 meq/ Magnesium Sulfate 20 meq/Calcium Gluconate 10 meq/ Multivitamins 10 ml/Chromium/ Copper/Manganese/ Seleni/Zn 0.5 ml/ Insulin Human Regular 35 unit/ Total Parenteral Nutrition/Amino Acids/Dextrose/ Fat Emulsion Intravenous 1,400 ml @ 58.333 mls/ hr TPN CONT 08/11/19 22:00 08/12/19 21:59 DC 08/12/19 00:06 58.333 MLS/HR Sodium Chloride 100 meq/Potassium Chloride 40 meq/ Magnesium Sulfate 20 meq/Calcium Gluconate 15 meq/ Multivitamins 10 ml/Chromium/ Copper/Manganese/ Seleni/Zn 0.5 ml/ Insulin Human Regular 35 unit/ Total Parenteral Nutrition/Amino Acids/Dextrose/ Fat Emulsion Intravenous 1,400 ml @ 58.333 mls/ hr TPN CONT 08/10/19 22:00 08/11/19 21:59 DC 08/10/19 22:27 58.333 MLS/HR Sodium Chloride 100 meq/Potassium Phosphate 10 mmol/ Magnesium Sulfate 12 meq/Calcium Gluconate 15 meq/ Multivitamins 10 ml/Chromium/ Copper/Manganese/ Seleni/Zn 0.5 ml/ Insulin Human Regular 35 unit/ Potassium Chloride 20 meq/ Total Parenteral Nutrition/Amino Acids/Dextrose/ Fat Emulsion Intravenous 1,400 ml @ 58.333 mls/ hr TPN CONT 08/04/19 22:00 08/05/19 21:59 DC 08/04/19 22:10 58.333 MLS/HR Sodium Chloride 100 meq/Potassium Phosphate 19 mmol/ Magnesium Sulfate 12 meq/Calcium Gluconate 15 meq/ Multivitamins 10 ml/Chromium/ Copper/Manganese/ Seleni/Zn 0.5 ml/ Insulin Human Regular 40 unit/ Potassium Chloride 20 meq/ Total Parenteral Nutrition/Amino Acids/Dextrose/ Fat Emulsion Intravenous 1,400 ml @ 58.333 mls/ hr TPN CONT 08/03/19 22:00 08/04/19 21:59 DC 08/03/19 21:20 58.333 MLS/HR Sodium Chloride 100 meq/Potassium Phosphate 5 mmol/ Magnesium Sulfate 12 meq/Calcium Gluconate 15 meq/ Multivitamins 10 ml/Chromium/ Copper/Manganese/ Seleni/Zn 0.5 ml/ Insulin Human Regular 35 unit/ Potassium Chloride 20 meq/ Total Parenteral Nutrition/Amino Acids/Dextrose/ Fat Emulsion Intravenous 1,400 ml @ 58.333 mls/ hr TPN CONT 08/05/19 22:00 08/06/19 21:59 DC 08/05/19 22:59 58.333 MLS/HR Sodium Chloride 110 meq/Potassium Chloride 30 meq/ Potassium Acetate 30 meq/Magnesium Sulfate 15 meq/ Multivitamins 10 ml/Chromium/ Copper/Manganese/ Seleni/Zn 1 ml/ Insulin Human Regular 15 unit/ Total Parenteral Nutrition/Amino Acids/Dextrose/ Fat Emulsion Intravenous 1,680 ml @ 70 mls/hr TPN CONT 11/05/19 22:00 11/06/19 21:59 DC 11/05/19 22:01 70 MLS/HR Sodium Chloride 110 meq/Sodium Phosphate 10 mmol/ Potassium Chloride 30 meq/ Potassium Acetate 30 meq/Magnesium Sulfate 15 meq/ Multivitamins 10 ml/Chromium/ Copper/Manganese/ Seleni/Zn 1 ml/ Insulin Human Regular 15 unit/ Total Parenteral Nutrition/Amino Acids/Dextrose/ Fat Emulsion Intravenous 1,680 ml @ 70 mls/hr TPN CONT 11/06/19 22:00 11/07/19 21:59 DC 11/06/19 22:03 70 MLS/HR Sodium Chloride 120 meq/Sodium Phosphate 10 mmol/ Potassium Chloride 30 meq/ Potassium Acetate 30 meq/Magnesium Sulfate 15 meq/ Multivitamins 10 ml/Chromium/ Copper/Manganese/ Seleni/Zn 1 ml/ Insulin Human Regular 15 unit/ Total Parenteral Nutrition/Amino Acids/Dextrose/ Fat Emulsion Intravenous 1,680 ml @ 70 mls/hr TPN CONT 11/13/19 22:00 11/14/19 21:59 Cancel Succinylcholine Chloride (Anectine) 120 mg 1X ONCE 07/11/19 08:30 07/11/19 08:31 DC 07/11/19 08:34 120 MG Vancomycin HCl (Vanco Per Pharmacy) 1 each PRN DAILY PRN 10/30/19 09:15 11/02/19 07:41 DC 11/01/19 02:46 1 EACH Vancomycin HCl (Vancomycin Random Level) 1 each 1X ONCE 11/01/19 01:00 11/01/19 01:01 DC 11/01/19 01:00 1 EACH Vancomycin HCl (Vancomycin Trough Level) 1 each 1X ONCE 11/02/19 09:30 11/02/19 09:31 Cancel Vancomycin HCl 1.5 gm/Sodium Chloride 500 ml @ 250 mls/hr Q12H 11/01/19 10:00 11/02/19 07:41 DC 11/01/19 22:07 250 MLS/HR Vancomycin HCl 2 gm/Sodium Chloride 500 ml @ 250 mls/hr 1X ONCE 10/30/19 10:00 10/30/19 11:59 DC 10/30/19 10:34 250 MLS/HR Vasopressin (Vasostrict) 20 unit STK-MED ONCE 10/18/19 12:23 10/18/19 12:23 DC Vasopressin 20 unit/Dextrose 101 ml @ 12 mls/hr CONT PRN 10/18/19 15:30 11/21/19 09:45 DC 10/25/19 04:17 12 MLS/HR Vecuronium [place] (Norcuron Bolus) 6 mg PRN Q6HRS PRN 08/25/19 19:15 08/25/19 19:35 DC Vitamin A/Vitamin D (Vitamin A & D Ointment) 1 raum PRN Q1HR PRN 11/22/19 09:15 12/05/19 17:07 DC 12/01/19 08:36 1 RAMU Zoledronic Acid 100 ml @ 400 mls/hr 1X ONCE 11/25/19 12:00 11/25/19 12:14 DC 11/25/19 13:04 400 MLS/HR Lab Laboratory Tests Test 12/05/19 12:12 White Blood Count 33.0 x10^3/uL (4.0-11.0) Red Blood Count 2.28 x10^6/uL (3.50-5.40) Hemoglobin 6.4 g/dL (12.0-15.5) Hematocrit 20.4 % (36.0-47.0) Mean Corpuscular Volume 89 fL (79-100) Mean Corpuscular Hemoglobin 28 pg (25-35) Mean Corpuscular Hemoglobin Concent 31 g/dL (31-37) Red Cell Distribution Width 17.5 % (11.5-14.5) Platelet Count 239 x10^3/uL (140-400) Neutrophils (%) (Auto) 93 % (31-73) Lymphocytes (%) (Auto) 4 % (24-48) Monocytes (%) (Auto) 3 % (0-9) Eosinophils (%) (Auto) 0 % (0-3) Basophils (%) (Auto) 0 % (0-3) Neutrophils # (Auto) 30.7 x10^3/uL (1.8-7.7) Lymphocytes # (Auto) 1.2 x10^3/uL (1.0-4.8) Monocytes # (Auto) 1.1 x10^3/uL (0.0-1.1) Eosinophils # (Auto) 0.0 x10^3/uL (0.0-0.7) Basophils # (Auto) 0.0 x10^3/uL (0.0-0.2) Sodium Level 153 mmol/L (136-145) Potassium Level 3.7 mmol/L (3.5-5.1) Chloride Level 118 mmol/L (98-107) Carbon Dioxide Level 15 mmol/L (21-32) Anion Gap 20 (6-14) Blood Urea Nitrogen 56 mg/dL (7-20) Creatinine 2.5 mg/dL (0.6-1.0) Estimated GFR (Cockcroft-Gault) 20.5 BUN/Creatinine Ratio 22 (6-20) Glucose Level 76 mg/dL (70-99) Lactic Acid Level 5.9 mmol/L (0.4-2.0) Calcium Level 7.3 mg/dL (8.5-10.1) Phosphorus Level 2.4 mg/dL (2.6-4.7) Magnesium Level 1.8 mg/dL (1.8-2.4) Total Bilirubin 1.3 mg/dL (0.2-1.0) Aspartate Amino Transf (AST/SGOT) 34 U/L (15-37) Alanine Aminotransferase (ALT/SGPT) 9 U/L (14-59) Alkaline Phosphatase 282 U/L (46-116) Total Protein 4.3 g/dL (6.4-8.2) Albumin 1.9 g/dL (3.4-5.0) Albumin/Globulin Ratio 0.8 (1.0-1.7) Results All relevant outside records, renal labs, imaging studies, telemetry/EKG's were reviewed. Justicifation of Admission Dx: Justifications for Admission: Justification of Admission Dx: Yes VERENA KENT MD Dec 06, 2019 09:53
[2019-12-06] MEDS: MORPHINE SULFATE 2 MG/ML VIAL. IV PRN ×2 (11:02→14:02)
--- NOTE | 2019-12-06 11:27 | PDOC ---
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 [employer] 12/06/19 1127: SURGICAL PROGRESS NOTE DATE: 12/06/19 TIME: 11:26 Subjective noted now on comfort measures will sign off Vital Signs Vital Signs Date Time Temp Pulse Resp B/P (MAP) Pulse Ox O2 Delivery O2 Flow Rate FiO2 12/06/19 11:02 29 77 Nasal Cannula 1.0 12/06/19 07:23 132 100/43 (62) 12/06/19 04:07 98.4 98.4 I&O Intake and Output 12/06/19 07:00 Intake Total 1625 ml Output Total 545 ml Balance 1080 ml Intake Oral 0 ml IV Total 100 ml Tube Feeding 200 ml Blood Product 550 ml Blood Product IV Normal Saline Flush 775 ml Output Urine Total 245 ml Drainage Total 300 ml Labs Laboratory Tests Test 12/04/19 11:47 12/04/19 18:09 12/04/19 23:05 12/04/19 23:30 Glucose (Fingerstick) 195 mg/dL (70-99) 171 mg/dL (70-99) O2 Saturation 97 % (92-99) Arterial Blood pH 7.22 (7.35-7.45) Arterial Blood pH (Temp corrected) 7.21 Arterial Blood pCO2 at Patient Temp 18 mmHg (35-46) Arterial Blood pCO2 (Temp correct) 19 mmHg Arterial Blood pO2 at Patient Temp 107 mmHg (75-108) Arterial Blood pO2 (Temp corrected) 112 mmHg Arterial Blood HCO3 7 mmol/L (21-28) Arterial Blood Base Excess -19 mmol/L (-3-3) FiO2 40 Hemoglobin 6.3 g/dL (12.0-15.5) Hematocrit 21.3 % (36.0-47.0) Mean Corpuscular Hemoglobin Concent 30 g/dL (31-37) Prothrombin Time 34.6 SEC (11.7-14.0) Prothromb Time International Ratio 3.4 (0.8-1.1) Test 12/05/19 00:13 12/05/19 04:01 12/05/19 06:10 12/05/19 06:20 Glucose (Fingerstick) 109 mg/dL (70-99) 107 mg/dL (70-99) 93 mg/dL (70-99) White Blood Count 39.1 x10^3/uL (4.0-11.0) Red Blood Count 2.87 x10^6/uL (3.50-5.40) Hemoglobin 8.0 g/dL (12.0-15.5) Hematocrit 26.3 % (36.0-47.0) Mean Corpuscular Volume 92 fL (79-100) Mean Corpuscular Hemoglobin 28 pg (25-35) Mean Corpuscular Hemoglobin Concent 30 g/dL (31-37) Red Cell Distribution Width 17.9 % (11.5-14.5) Platelet Count 280 x10^3/uL (140-400) Neutrophils (%) (Auto) 94 % (31-73) Lymphocytes (%) (Auto) 3 % (24-48) Monocytes (%) (Auto) 3 % (0-9) Eosinophils (%) (Auto) 0 % (0-3) Basophils (%) (Auto) 0 % (0-3) Neutrophils # (Auto) 36.9 x10^3/uL (1.8-7.7) Lymphocytes # (Auto) 1.0 x10^3/uL (1.0-4.8) Monocytes # (Auto) 1.1 x10^3/uL (0.0-1.1) Eosinophils # (Auto) 0.0 x10^3/uL (0.0-0.7) Basophils # (Auto) 0.0 x10^3/uL (0.0-0.2) Segmented Neutrophils % 38 % (35-66) Band Neutrophils % 52 % (0-9) Lymphocytes % 6 % (24-48) Monocytes % 4 % (0-10) Nucleated Red Blood Cells 2 Dohle Bodies Few Platelet Estimate Adequate (ADEQUATE) Prothrombin Time 27.9 SEC (11.7-14.0) Prothromb Time International Ratio 2.6 (0.8-1.1) Sodium Level 154 mmol/L (136-145) Potassium Level 3.6 mmol/L (3.5-5.1) Chloride Level 119 mmol/L (98-107) Carbon Dioxide Level 14 mmol/L (21-32) Anion Gap 21 (6-14) Blood Urea Nitrogen 58 mg/dL (7-20) Creatinine 2.5 mg/dL (0.6-1.0) Estimated GFR (Cockcroft-Gault) 20.5 BUN/Creatinine Ratio 23 (6-20) Glucose Level 100 mg/dL (70-99) Calcium Level 7.8 mg/dL (8.5-10.1) Total Bilirubin 0.7 mg/dL (0.2-1.0) Aspartate Amino Transf (AST/SGOT) 30 U/L (15-37) Alanine Aminotransferase (ALT/SGPT) 13 U/L (14-59) Alkaline Phosphatase 338 U/L (46-116) Total Protein 4.8 g/dL (6.4-8.2) Albumin 2.0 g/dL (3.4-5.0) Albumin/Globulin Ratio 0.7 (1.0-1.7) Test 12/05/19 12:12 White Blood Count 33.0 x10^3/uL (4.0-11.0) Red Blood Count 2.28 x10^6/uL (3.50-5.40) Hemoglobin 6.4 g/dL (12.0-15.5) Hematocrit 20.4 % (36.0-47.0) Mean Corpuscular Volume 89 fL (79-100) Mean Corpuscular Hemoglobin 28 pg (25-35) Mean Corpuscular Hemoglobin Concent 31 g/dL (31-37) Red Cell Distribution Width 17.5 % (11.5-14.5) Platelet Count 239 x10^3/uL (140-400) Neutrophils (%) (Auto) 93 % (31-73) Lymphocytes (%) (Auto) 4 % (24-48) Monocytes (%) (Auto) 3 % (0-9) Eosinophils (%) (Auto) 0 % (0-3) Basophils (%) (Auto) 0 % (0-3) Neutrophils # (Auto) 30.7 x10^3/uL (1.8-7.7) Lymphocytes # (Auto) 1.2 x10^3/uL (1.0-4.8) Monocytes # (Auto) 1.1 x10^3/uL (0.0-1.1) Eosinophils # (Auto) 0.0 x10^3/uL (0.0-0.7) Basophils # (Auto) 0.0 x10^3/uL (0.0-0.2) Sodium Level 153 mmol/L (136-145) Potassium Level 3.7 mmol/L (3.5-5.1) Chloride Level 118 mmol/L (98-107) Carbon Dioxide Level 15 mmol/L (21-32) Anion Gap 20 (6-14) Blood Urea Nitrogen 56 mg/dL (7-20) Creatinine 2.5 mg/dL (0.6-1.0) Estimated GFR (Cockcroft-Gault) 20.5 BUN/Creatinine Ratio 22 (6-20) Glucose Level 76 mg/dL (70-99) Lactic Acid Level 5.9 mmol/L (0.4-2.0) Calcium Level 7.3 mg/dL (8.5-10.1) Phosphorus Level 2.4 mg/dL (2.6-4.7) Magnesium Level 1.8 mg/dL (1.8-2.4) Total Bilirubin 1.3 mg/dL (0.2-1.0) Aspartate Amino Transf (AST/SGOT) 34 U/L (15-37) Alanine Aminotransferase (ALT/SGPT) 9 U/L (14-59) Alkaline Phosphatase 282 U/L (46-116) Total Protein 4.3 g/dL (6.4-8.2) Albumin 1.9 g/dL (3.4-5.0) Albumin/Globulin Ratio 0.8 (1.0-1.7) Laboratory Tests Test 12/05/19 12:12 White Blood Count 33.0 x10^3/uL (4.0-11.0) Red Blood Count 2.28 x10^6/uL (3.50-5.40) Hemoglobin 6.4 g/dL (12.0-15.5) Hematocrit 20.4 % (36.0-47.0) Mean Corpuscular Volume 89 fL (79-100) Mean Corpuscular Hemoglobin 28 pg (25-35) Mean Corpuscular Hemoglobin Concent 31 g/dL (31-37) Red Cell Distribution Width 17.5 % (11.5-14.5) Platelet Count 239 x10^3/uL (140-400) Neutrophils (%) (Auto) 93 % (31-73) Lymphocytes (%) (Auto) 4 % (24-48) Monocytes (%) (Auto) 3 % (0-9) Eosinophils (%) (Auto) 0 % (0-3) Basophils (%) (Auto) 0 % (0-3) Neutrophils # (Auto) 30.7 x10^3/uL (1.8-7.7) Lymphocytes # (Auto) 1.2 x10^3/uL (1.0-4.8) Monocytes # (Auto) 1.1 x10^3/uL (0.0-1.1) Eosinophils # (Auto) 0.0 x10^3/uL (0.0-0.7) Basophils # (Auto) 0.0 x10^3/uL (0.0-0.2) Sodium Level 153 mmol/L (136-145) Potassium Level 3.7 mmol/L (3.5-5.1) Chloride Level 118 mmol/L (98-107) Carbon Dioxide Level 15 mmol/L (21-32) Anion Gap 20 (6-14) Blood Urea Nitrogen 56 mg/dL (7-20) Creatinine 2.5 mg/dL (0.6-1.0) Estimated GFR (Cockcroft-Gault) 20.5 BUN/Creatinine Ratio 22 (6-20) Glucose Level 76 mg/dL (70-99) Lactic Acid Level 5.9 mmol/L (0.4-2.0) Calcium Level 7.3 mg/dL (8.5-10.1) Phosphorus Level 2.4 mg/dL (2.6-4.7) Magnesium Level 1.8 mg/dL (1.8-2.4) Total Bilirubin 1.3 mg/dL (0.2-1.0) Aspartate Amino Transf (AST/SGOT) 34 U/L (15-37) Alanine Aminotransferase (ALT/SGPT) 9 U/L (14-59) Alkaline Phosphatase 282 U/L (46-116) Total Protein 4.3 g/dL (6.4-8.2) Albumin 1.9 g/dL (3.4-5.0) Albumin/Globulin Ratio 0.8 (1.0-1.7) Problem List Problems Medical Problems: (1) Acute pancreatitis Status: Acute (2) Cholelithiasis Status: Acute Justicifation of Admission Dx: Justifications for Admission: Justification of Admission Dx: Yes CARIN MALDONADO MD 12/06/19 1230: SURGICAL PROGRESS NOTE Assessment/Plan Agree with Julius assessment and plan 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 APRN Dec 06, 2019 11:27 CARIN MALDONADO MD Dec 06, 2019 12:30
--- NOTE | 2019-12-06 12:33 | PDOC ---
G I PROGRESS NOTE Subjective Non-responsive. Objective Noted febrile, acidotic. Family wishes to withdraw aggressive care. Physical Exam NO PE. Review of Relevant I have reviewed the following items kolby (where applicable) has been applied. Labs Laboratory Tests Test 12/04/19 18:09 12/04/19 23:05 12/04/19 23:30 12/05/19 00:13 Glucose (Fingerstick) 171 mg/dL (70-99) 109 mg/dL (70-99) O2 Saturation 97 % (92-99) Arterial Blood pH 7.22 (7.35-7.45) Arterial Blood pH (Temp corrected) 7.21 Arterial Blood pCO2 at Patient Temp 18 mmHg (35-46) Arterial Blood pCO2 (Temp correct) 19 mmHg Arterial Blood pO2 at Patient Temp 107 mmHg (75-108) Arterial Blood pO2 (Temp corrected) 112 mmHg Arterial Blood HCO3 7 mmol/L (21-28) Arterial Blood Base Excess -19 mmol/L (-3-3) FiO2 40 Hemoglobin 6.3 g/dL (12.0-15.5) Hematocrit 21.3 % (36.0-47.0) Mean Corpuscular Hemoglobin Concent 30 g/dL (31-37) Prothrombin Time 34.6 SEC (11.7-14.0) Prothromb Time International Ratio 3.4 (0.8-1.1) Test 12/05/19 04:01 12/05/19 06:10 12/05/19 06:20 12/05/19 12:12 Glucose (Fingerstick) 107 mg/dL (70-99) 93 mg/dL (70-99) White Blood Count 39.1 x10^3/uL (4.0-11.0) 33.0 x10^3/uL (4.0-11.0) Red Blood Count 2.87 x10^6/uL (3.50-5.40) 2.28 x10^6/uL (3.50-5.40) Hemoglobin 8.0 g/dL (12.0-15.5) 6.4 g/dL (12.0-15.5) Hematocrit 26.3 % (36.0-47.0) 20.4 % (36.0-47.0) Mean Corpuscular Volume 92 fL (79-100) 89 fL (79-100) Mean Corpuscular Hemoglobin 28 pg (25-35) 28 pg (25-35) Mean Corpuscular Hemoglobin Concent 30 g/dL (31-37) 31 g/dL (31-37) Red Cell Distribution Width 17.9 % (11.5-14.5) 17.5 % (11.5-14.5) Platelet Count 280 x10^3/uL (140-400) 239 x10^3/uL (140-400) Neutrophils (%) (Auto) 94 % (31-73) 93 % (31-73) Lymphocytes (%) (Auto) 3 % (24-48) 4 % (24-48) Monocytes (%) (Auto) 3 % (0-9) 3 % (0-9) Eosinophils (%) (Auto) 0 % (0-3) 0 % (0-3) Basophils (%) (Auto) 0 % (0-3) 0 % (0-3) Neutrophils # (Auto) 36.9 x10^3/uL (1.8-7.7) 30.7 x10^3/uL (1.8-7.7) Lymphocytes # (Auto) 1.0 x10^3/uL (1.0-4.8) 1.2 x10^3/uL (1.0-4.8) Monocytes # (Auto) 1.1 x10^3/uL (0.0-1.1) 1.1 x10^3/uL (0.0-1.1) Eosinophils # (Auto) 0.0 x10^3/uL (0.0-0.7) 0.0 x10^3/uL (0.0-0.7) Basophils # (Auto) 0.0 x10^3/uL (0.0-0.2) 0.0 x10^3/uL (0.0-0.2) Segmented Neutrophils % 38 % (35-66) Band Neutrophils % 52 % (0-9) Lymphocytes % 6 % (24-48) Monocytes % 4 % (0-10) Nucleated Red Blood Cells 2 Dohle Bodies Few Platelet Estimate Adequate (ADEQUATE) Prothrombin Time 27.9 SEC (11.7-14.0) Prothromb Time International Ratio 2.6 (0.8-1.1) Sodium Level 154 mmol/L (136-145) 153 mmol/L (136-145) Potassium Level 3.6 mmol/L (3.5-5.1) 3.7 mmol/L (3.5-5.1) Chloride Level 119 mmol/L (98-107) 118 mmol/L (98-107) Carbon Dioxide Level 14 mmol/L (21-32) 15 mmol/L (21-32) Anion Gap 21 (6-14) 20 (6-14) Blood Urea Nitrogen 58 mg/dL (7-20) 56 mg/dL (7-20) Creatinine 2.5 mg/dL (0.6-1.0) 2.5 mg/dL (0.6-1.0) Estimated GFR (Cockcroft-Gault) 20.5 20.5 BUN/Creatinine Ratio 23 (6-20) 22 (6-20) Glucose Level 100 mg/dL (70-99) 76 mg/dL (70-99) Calcium Level 7.8 mg/dL (8.5-10.1) 7.3 mg/dL (8.5-10.1) Total Bilirubin 0.7 mg/dL (0.2-1.0) 1.3 mg/dL (0.2-1.0) Aspartate Amino Transf (AST/SGOT) 30 U/L (15-37) 34 U/L (15-37) Alanine Aminotransferase (ALT/SGPT) 13 U/L (14-59) 9 U/L (14-59) Alkaline Phosphatase 338 U/L (46-116) 282 U/L (46-116) Total Protein 4.8 g/dL (6.4-8.2) 4.3 g/dL (6.4-8.2) Albumin 2.0 g/dL (3.4-5.0) 1.9 g/dL (3.4-5.0) Albumin/Globulin Ratio 0.7 (1.0-1.7) 0.8 (1.0-1.7) Lactic Acid Level 5.9 mmol/L (0.4-2.0) Phosphorus Level 2.4 mg/dL (2.6-4.7) Magnesium Level 1.8 mg/dL (1.8-2.4) Microbiology 12/04/19 Blood Culture - Preliminary, Resulted 11/28/19 Urine Culture - Final, Complete 11/13/19 Gram Stain - Final, Complete 11/13/19 Aerobic Culture - Final, Complete 11/08/19 Gram Stain - Final, Complete 11/08/19 Aerobic and Anaerobic Culture - Final, Complete 11/06/19 Gram Stain Evaluation - Final, Complete 11/06/19 Respiratory Culture - Final, Complete 11/06/19 Antimicrobic Susceptibility - Final, Complete 10/18/19 Gram Stain - Final, Complete 10/18/19 Aerobic and Anaerobic Culture - Final, Complete 10/18/19 Antimicrobic Susceptibility - Final, Complete GNR in blood. Medications Current Medications Sodium Chloride 1,000 ml @ 1,000 mls/hr Q1H IV Last administered on 07/04/19at 03:00; Start 07/04/19 at 03:00; Stop 07/04/19 at 03:59; Status DC Ondansetron HCl (Zofran) 4 mg 1X ONCE IVP Last administered on 07/04/19at 03:27; Start 07/04/19 at 03:00; Stop 07/04/19 at 03:01; Status DC Morphine Sulfate (Morphine Sulfate) 4 mg 1X ONCE IV ; Start 07/04/19 at 03:00; Stop 07/04/19 at 03:01; Status Cancel Ketorolac Tromethamine (Toradol 30mg Vial) 30 mg 1X ONCE IV Last administered on 07/04/19at 02:54; Start 07/04/19 at 03:00; Stop 07/04/19 at 03:01; Status DC Fentanyl Citrate (Fentanyl 2ml Vial) 25 mcg 1X ONCE IVP Last administered on 07/04/19at 03:23; Start 07/04/19 at 03:30; Stop 07/04/19 at 03:31; Status DC Fentanyl Citrate (Fentanyl 2ml Vial) 100 mcg STK-MED ONCE .ROUTE ; Start 07/04/19 at 03:18; Stop 07/04/19 at 03:18; Status DC Iohexol (Omnipaque 350 Mg/ml) 90 ml 1X ONCE IV Last administered on 07/04/19at 03:25; Start 07/04/19 at 03:30; Stop 07/04/19 at 03:31; Status DC Info (CONTRAST GIVEN -- Rx MONITORING) 1 each PRN DAILY PRN MC SEE COMMENTS; Start 07/04/19 at 03:30; Stop 07/06/19 at 03:29; Status DC Hydromorphone HCl (Dilaudid) 0.5 mg 1X ONCE IV Last administered on 07/04/19at 03:55; Start 07/04/19 at 04:30; Stop 07/04/19 at 04:32; Status DC Ondansetron HCl (Zofran) 4 mg PRN Q8HRS PRN IV NAUSEA/VOMITING 1ST CHOICE; Start 07/04/19 at 05:00; Stop 07/04/19 at 09:27; Status DC Morphine Sulfate (Morphine Sulfate) 2 mg PRN Q2HR PRN IV SEVERE PAIN 7-10 Last administered on 07/05/19at 12:26; Start 07/04/19 at 05:00; Stop 07/05/19 at 14:15; Status DC Sodium Chloride 1,000 ml @ 125 mls/hr Q8H IV Last administered on 07/04/19at 20:56; Start 07/04/19 at 05:00; Stop 07/05/19 at 04:59; Status DC Hydromorphone HCl (Dilaudid) 0.5 mg PRN Q3HRS PRN IV SEVERE PAIN 7-10 Last administered on 07/05/19at 10:06; Start 07/04/19 at 05:00; Stop 07/05/19 at 12:01; Status DC Piperacillin Sod/ Tazobactam Sod 4.5 gm/Sodium Chloride 100 ml @ 200 mls/hr 1X ONCE IV Last administered on 07/04/19at 05:44; Start 07/04/19 at 06:00; Stop 07/04/19 at 06:29; Status DC Ondansetron HCl (Zofran) 4 mg PRN Q4HRS PRN IV NAUSEA/VOMITING 1ST CHOICE Last administered on 12/03/19at 14:27; Start 07/04/19 at 09:30 Insulin Human Lispro (HumaLOG) 0-9 UNITS Q6HRS SQ Last administered on 12/02/19at 12:43; Start 07/04/19 at 09:30; Stop 12/05/19 at 17:07; Status DC Dextrose (Dextrose 50%-Water Syringe) 12.5 gm PRN Q15MIN PRN IV SEE COMMENTS; Start 07/04/19 at 09:30; Stop 12/05/19 at 17:07; Status DC Pantoprazole Sodium (PROTONIX VIAL for IV PUSH) 40 mg DAILYAC IVP Last administered on 12/05/19at 08:57; Start 07/04/19 at 11:30; Stop 12/05/19 at 17:07; Status DC Prochlorperazine Edisylate (Compazine) 10 mg PRN Q6HRS PRN IV NAUSEA/VOMITING, 2nd CHOICE Last administered on 11/28/19at 00:42; Start 07/04/19 at 17:45 Atenolol (Tenormin) 100 mg DAILY PO ; Start 07/05/19 at 09:00; Stop 07/04/19 at 20:08; Status DC Metoprolol Tartrate (Lopressor Vial) 2.5 mg Q6HRS IVP Last administered on 06/18 11/06at 05:51; Start 07/04/19 at 20:15; Stop 07/05/19 at 10:02; Status DC Metoprolol Tartrate (Lopressor Vial) 5 mg Q6HRS IVP Last administered on 07/14/19at 00:12; Start 07/05/19 at 10:15; Stop 07/16/19 at 08:48; Status DC Hydromorphone HCl (Dilaudid) 1 mg PRN Q3HRS PRN IV SEVERE PAIN 7-10 Last administered on 07/11/19at 05:13; Start 07/05/19 at 12:00; Stop 07/19/19 at 00:25; Status DC Lidocaine HCl (Buffered Lidocaine 1%) 3 ml STK-MED ONCE .ROUTE ; Start 07/05/19 at 12:55; Stop 07/05/19 at 12:56; Status DC Albumin Human 500 ml @ 125 mls/hr 1X ONCE IV Last administered on 07/05/19at 14:33; Start 07/05/19 at 14:30; Stop 07/05/19 at 18:32; Status DC Norepinephrine Bitartrate 8 mg/ Dextrose 258 ml @ 17.299 mls/ hr CONT PRN IV PER PROTOCOL Last administered on 08/02/19at 12:48; Start 07/05/19 at 15:30; Stop 08/05/19 at 09:19; Status DC Sodium Chloride 1,000 ml @ 125 mls/hr Q8H IV Last administered on 07/05/19at 21:04; Start 07/05/19 at 16:00; Stop 07/06/19 at 02:42; Status DC Albumin Human 500 ml @ 125 mls/hr PRN BID PRN IV After every 2L NSS & BP < 90mm Last administered on 10/18/19at 16:06; Start 07/05/19 at 16:00; Stop 10/21/19 at 09:30; Status DC Iohexol (Omnipaque 300 Mg/ml) 60 ml 1X ONCE IV Last administered on 07/05/19at 17:20; Start 07/05/19 at 17:00; Stop 07/05/19 at 17:01; Status DC Info (CONTRAST GIVEN -- Rx MONITORING) 1 each PRN DAILY PRN MC SEE COMMENTS; Start 07/05/19 at 17:00; Stop 07/07/19 at 16:59; Status DC Meropenem 1 gm/ Sodium Chloride 100 ml @ 200 mls/hr Q8HRS IV Last administered on 07/06/19at 05:45; Start 07/05/19 at 20:00; Stop 07/06/19 at 08:48; Status DC Furosemide (Lasix) 40 mg 1X ONCE IVP Last administered on 07/05/19at 22:12; Start 07/05/19 at 22:30; Stop 07/05/19 at 22:31; Status DC Calcium Chloride 1000 mg/Sodium Chloride 110 ml @ 220 mls/hr 1X ONCE IV Last administered on 07/05/19at 22:11; Start 07/05/19 at 22:30; Stop 07/05/19 at 22:59 ; Status DC Albuterol Sulfate (Ventolin Neb Soln) 2.5 mg 1X ONCE NEB Last administered on 07/06/19at 00:56; Start 07/05/19 at 22:30; Stop 07/05/19 at 22:31; Status DC Insulin Human Regular (HumuLIN R VIAL) 5 unit 1X ONCE IV Last administered on 07/05/19at 22:14; Start 07/05/19 at 22:30; Stop 07/05/19 at 22:31; Status DC Magnesium Sulfate 50 ml @ 25 mls/hr 1X ONCE IV Last administered on 07/06/19at 02:57; Start 07/06/19 at 03:00; Stop 07/06/19 at 04:59; Status DC Calcium Gluconate 1000 mg/Sodium Chloride 110 ml @ 220 mls/hr 1X ONCE IV Last administered on 07/06/19at 02:46; Start 07/06/19 at 03:00; Stop 07/06/19 at 03:29; Status DC Sodium Chloride 1,000 ml @ 200 mls/hr Q5H IV Last administered on 07/06/19at 02:46; Start 07/06/19 at 03:00; Stop 07/06/19 at 10:21; Status DC Calcium Gluconate 1000 mg/Sodium Chloride 110 ml @ 220 mls/hr 1X ONCE IV Last administered on 07/06/19at 03:21; Start 07/06/19 at 03:30; Stop 07/06/19 at 03:59; Status DC Sodium Bicarbonate 50 meq/Sodium Chloride 1,050 ml @ 75 mls/hr Q14H IV Last administered on 07/10/19at 21:10; Start 07/06/19 at 07:30; Stop 07/11/19 at 10:28; Status DC Calcium Gluconate 2000 mg/Sodium Chloride 120 ml @ 220 mls/hr 1X ONCE IV Last administered on 07/06/19at 09:05; Start 07/06/19 at 07:30; Stop 07/06/19 at 08:02; Status DC Lidocaine HCl (Xylocaine-Mpf 1% 2ml Vial) 2 ml STK-MED ONCE .ROUTE ; Start 07/06/19 at 08:47; Stop 07/06/19 at 08:47; Status DC Meropenem 500 mg/ Sodium Chloride 50 ml @ 100 mls/hr Q12HR IV Last administered on 07/11/19at 21:01; Start 07/06/19 at 18:00; Stop 07/12/19 at 07:58; Status DC Lidocaine HCl (Buffered Lidocaine 1%) 3 ml STK-MED ONCE .ROUTE ; Start 07/06/19 at 09:46; Stop 07/06/19 at 09:46; Status DC Lidocaine HCl (Buffered Lidocaine 1%) 6 ml 1X ONCE INJ Last administered on 07/06/19at 10:26; Start 07/06/19 at 10:15; Stop 07/06/19 at 10:16; Status DC Info (Tpn Per Pharmacy) 1 each PRN DAILY PRN MC SEE COMMENTS Last administered on 11/13/19at 08:31; Start 07/06/19 at 12:00; Stop 11/13/19 at 10:41; Status DC Sodium Chloride 1,000 ml @ 1,000 mls/hr Q1H PRN IV hypotension; Start 07/06/19 at 12:07; Stop 07/06/19 at 18:06; Status DC Diphenhydramine HCl (Benadryl) 25 mg 1X PRN PRN IV ITCHING; Start 07/06/19 at 12:15; Stop 07/07/19 at 12:14; Status DC Diphenhydramine HCl (Benadryl) 25 mg 1X PRN PRN IV ITCHING; Start 07/06/19 at 12:15; Stop 07/07/19 at 12:14; Status DC Sodium Chloride 1,000 ml @ 400 mls/hr Q2H30M PRN IV PATENCY; Start 07/06/19 at 12:07; Stop 07/07/19 at 00:06; Status DC Info (PHARMACY MONITORING -- do not chart) 1 each PRN DAILY PRN MC SEE COMMENTS; Start 07/06/19 at 12:15; Stop 07/08/19 at 08:13; Status DC Sodium Chloride 90 meq/Calcium Gluconate 10 meq/ Multivitamins 10 ml/Chromium/ Copper/Manganese/ Seleni/Zn 1 ml/ Total Parenteral Nutrition/Amino Acids/Dextrose/ Fat Emulsion Intravenous 55.005 ml @ 2.292 mls/hr TPN CONT IV ; Start 07/06/19 at 22:00; Stop 07/06/19 at 12:33; Status DC Info (Tpn Per Pharmacy) 1 each PRN DAILY PRN MC SEE COMMENTS; Start 07/06/19 at 12:30; Status UNV Sodium Chloride 90 meq/Calcium Gluconate 10 meq/ Multivitamins 10 ml/Chromium/ Copper/Manganese/ Seleni/Zn 0.5 ml/ Total Parenteral Nutrition/Amino Acids/Dextrose/ Fat Emulsion Intravenous 1,512 ml @ 63 mls/hr TPN CONT IV Last administered on 07/06/19at 22:06; Start 07/06/19 at 22:00; Stop 07/07/19 at 21:59; Status DC Calcium Carbonate/ Glycine (Tums) 500 mg PRN AFTMEALHC PRN PO INDIGESTION; Start 07/06/19 at 17:45; Stop 08/31/19 at 10:25; Status DC Calcium Gluconate (Calcium Gluconate) 2,000 mg 1X ONCE IVP Last administered on 07/07/19at 02:19; Start 07/07/19 at 02:15; Stop 07/07/19 at 02:16; Status DC Calcium Chloride 3000 mg/Sodium Chloride 1,030 ml @ 50 mls/hr [id number] IV Last administered on 07/09/19at 02:17; Start 07/07/19 at 08:00; Stop 07/09/19 at 15:23 ; Status DC Lorazepam (Ativan Inj) 1 mg PRN Q4HRS PRN IVP ANXIETY / AGITATION, 2nd choic Last administered on 08/05/19at 03:51; Start 07/07/19 at 09:00; Stop 08/05/19 at 09:19; Status DC Sodium Chloride 1,000 ml @ 1,000 mls/hr Q1H PRN IV hypotension; Start 07/07/19 at 08:56; Stop 07/07/19 at 14:55; Status DC Albumin Human 200 ml @ 200 mls/hr 1X PRN PRN IV Hypotension; Start 07/07/19 at 09:00; Stop 07/07/19 at 14:59; Status DC Diphenhydramine HCl (Benadryl) 25 mg 1X PRN PRN IV ITCHING; Start 07/07/19 at 09:00; Stop 07/08/19 at 08:59; Status DC Diphenhydramine HCl (Benadryl) 25 mg 1X PRN PRN IV ITCHING; Start 07/07/19 at 09:00; Stop 07/08/19 at 08:59; Status DC Sodium Chloride 1,000 ml @ 400 mls/hr Q2H30M PRN IV PATENCY; Start 07/07/19 at 08:56; Stop 07/07/19 at 20:55; Status DC Info (PHARMACY MONITORING -- do not chart) 1 each PRN DAILY PRN MC SEE COMMENTS; Start 07/07/19 at 09:00; Status UNV Info (PHARMACY MONITORING -- do not chart) 1 each PRN DAILY PRN MC SEE COMMENTS; Start 07/07/19 at 09:00; Stop 07/08/19 at 08:13; Status DC Digoxin (Lanoxin) 500 mcg 1X ONCE IV Last administered on 07/07/19at 10:04; Start 07/07/19 at 10:00; Stop 07/07/19 at 10:01; Status DC Digoxin (Lanoxin) 125 mcg 1X ONCE IV Last administered on 07/07/19at 17:10; Start 07/07/19 at 18:00; Stop 07/07/19 at 18:01; Status DC Magnesium Sulfate 100 ml @ 25 mls/hr 1X ONCE IV Last administered on 07/07/19at 12:48; Start 07/07/19 at 13:00; Stop 07/07/19 at 16:59; Status DC Sodium Chloride 90 meq/Magnesium Sulfate 10 meq/ Calcium Gluconate 20 meq/ Multivitamins 10 ml/Chromium/ Copper/Manganese/ Seleni/Zn 0.5 ml/ Total Parenteral Nutrition/Amino Acids/Dextrose/ Fat Emulsion Intravenous 1,512 ml @ 63 mls/hr TPN CONT IV Last administered on 07/07/19at 22:25; Start 07/07/19 at 22:00; Stop 07/08/19 at 21:59; Status DC Sodium Chloride 1,000 ml @ 1,000 mls/hr Q1H PRN IV hypotension; Start 07/08/19 at 08:05; Stop 07/08/19 at 14:04; Status DC Albumin Human 200 ml @ 200 mls/hr 1X ONCE IV Last administered on 07/08/19at 08:57; Start 07/08/19 at 08:15; Stop 07/08/19 at 09:14; Status DC Diphenhydramine HCl (Benadryl) 25 mg 1X PRN PRN IV ITCHING; Start 07/08/19 at 08:15; Stop 07/09/19 at 08:14; Status DC Diphenhydramine HCl (Benadryl) 25 mg 1X PRN PRN IV ITCHING; Start 07/08/19 at 08:15; Stop 07/09/19 at 08:14; Status DC Sodium Chloride 1,000 ml @ 400 mls/hr Q2H30M PRN IV PATENCY; Start 07/08/19 at 08:05; Stop 07/08/19 at 20:04; Status DC Info (PHARMACY MONITORING -- do not chart) 1 each PRN DAILY PRN MC SEE COMMENTS; Start 07/08/19 at 08:15; Stop 07/12/19 at 07:57; Status DC Sodium Chloride 90 meq/Potassium Chloride 15 meq/ Potassium Phosphate 10 mmol/ Magnesium Sulfate 10 meq/Calcium Gluconate 20 meq/ Multivitamins 10 ml/Chromium/ Copper/Manganese/ Seleni/Zn 0.5 ml/ Total Parenteral Nutrition/Amino Acids/Dextrose/ Fat Emulsion Intravenous 1,512 ml @ 63 mls/hr TPN CONT IV Last administered on 07/08/19at 21:01; Start 07/08/19 at 22:00; Stop 07/09/19 at 21:59; Status DC Potassium Chloride/Water 100 ml @ 100 mls/hr 1X ONCE IV Last administered on 07/08/19at 14:09; Start 07/08/19 at 14:00; Stop 07/08/19 at 14:59; Status DC Benzocaine (Hurricaine One) 1 spray 1X ONCE MM Last administered on 07/08/19at 16:38; Start 07/08/19 at 14:30; Stop 07/08/19 at 14:31; Status DC Lidocaine HCl (Glydo (Lidocaine) Jelly) 1 ramu 1X ONCE MM Last administered on 07/08/19at 16:38; Start 07/08/19 at 14:30; Stop 07/08/19 at 14:31; Status DC Linezolid/Dextrose 300 ml @ 300 mls/hr Q12HR IV Last administered on 07/14/19at 21:04; Start 07/08/19 at 20:00; Stop 07/15/19 at 07:50; Status DC Acetaminophen (Tylenol) 650 mg PRN Q6HRS PRN PO MILD PAIN / TEMP; Start 07/09/19 at 03:30; Stop 07/09/19 at 03:36; Status DC Acetaminophen (Tylenol) 650 mg PRN Q6HRS PRN PEG MILD PAIN / TEMP Last administered on 08/04/19at 19:56; Start 07/09/19 at 03:36; Stop 08/31/19 at 10:25; Status DC Sodium Chloride 1,000 ml @ 1,000 mls/hr Q1H PRN IV hypotension; Start 07/09/19 at 07:50; Stop 07/09/19 at 13:49; Status DC Albumin Human 200 ml @ 200 mls/hr 1X PRN PRN IV Hypotension; Start 07/09/19 at 08:00; Stop 07/09/19 at 13:59; Status DC Sodium Chloride (Normal Saline Flush) 10 ml 1X PRN PRN IV AP catheter pack; Start 07/09/19 at 08:00; Stop 07/10/19 at 07:59; Status DC Sodium Chloride (Normal Saline Flush) 10 ml 1X PRN PRN IV KILN [employer] catheter pack; Start 07/09/19 at 08:00; Stop 07/10/19 at 07:59; Status DC Sodium Chloride 1,000 ml @ 400 mls/hr Q2H30M PRN IV PATENCY; Start 07/09/19 at 07:50; Stop 07/09/19 at 19:49; Status DC Info (PHARMACY MONITORING -- do not chart) 1 each PRN DAILY PRN MC SEE COMMENTS; Start 07/09/19 at 08:00; Status UNV Info (PHARMACY MONITORING -- do not chart) 1 each PRN DAILY PRN MC SEE COMMENTS; Start 07/09/19 at 08:00; Stop 07/11/19 at 08:25; Status DC Sodium Chloride 90 meq/Potassium Chloride 15 meq/ Potassium Phosphate 10 mmol/ Magnesium Sulfate 10 meq/Calcium Gluconate 20 meq/ Multivitamins 10 ml/Chromium/ Copper/Manganese/ Seleni/Zn 0.5 ml/ Total Parenteral Nutrition/Amino Acids/Dextrose/ Fat Emulsion Intravenous 1,512 ml @ 63 mls/hr TPN CONT IV Last administered on 07/09/19at 20:57; Start 07/09/19 at 22:00; Stop 07/10/19 at 21:59; Status DC Sodium Chloride 90 meq/Potassium Chloride 15 meq/ Potassium Phosphate 15 mmol/ Magnesium Sulfate 10 meq/Calcium Gluconate 20 meq/ Multivitamins 10 ml/Chromium/ Copper/Manganese/ Seleni/Zn 0.5 ml/ Total Parenteral Nutrition/Amino Acids/Dextrose/ Fat Emulsion Intravenous 1,512 ml @ 63 mls/hr TPN CONT IV ; Start 07/10/19 at 22:00; Stop 07/10/19 at 14:16; Status DC Sodium Chloride 90 meq/Potassium Chloride 15 meq/ Potassium Phosphate 15 mmol/ Magnesium Sulfate 10 meq/Calcium Gluconate 20 meq/ Multivitamins 10 ml/Chromium/ Copper/Manganese/ Seleni/Zn 0.5 ml/ Total Parenteral Nutrition/Amino Acids/Dextrose/ Fat Emulsion Intravenous 1,200 ml @ 50 mls/hr TPN CONT IV ; Start 07/10/19 at 22:00; Stop 07/10/19 at 14:17; Status DC Sodium Chloride 90 meq/Potassium Chloride 15 meq/ Potassium Phosphate 10 mmol/ Magnesium Sulfate 10 meq/Calcium Gluconate 20 meq/ Multivitamins 10 ml/Chromium/ Copper/Manganese/ Seleni/Zn 0.5 ml/ Total Parenteral Nutrition/Amino Acids/Dextrose/ Fat Emulsion Intravenous 1,200 ml @ 50 mls/hr TPN CONT IV Last administered on 07/10/19at 23:29; Start 07/10/19 at 22:00; Stop 07/11/19 at 21:59; Status DC Sodium Chloride 1,000 ml @ 1,000 mls/hr Q1H PRN IV hypotension; Start 07/11/19 at 07:28; Stop 07/11/19 at 13:27; Status DC Albumin Human 200 ml @ 200 mls/hr 1X ONCE IV Last administered on 07/11/19at 08:51; Start 07/11/19 at 07:30; Stop 07/11/19 at 08:29; Status DC Diphenhydramine HCl (Benadryl) 25 mg 1X PRN PRN IV ITCHING; Start 07/11/19 at 07:30; Stop 07/12/19 at 07:29; Status DC Diphenhydramine HCl (Benadryl) 25 mg 1X PRN PRN IV ITCHING; Start 07/11/19 at 07:30; Stop 07/12/19 at 07:29; Status DC Sodium Chloride 1,000 ml @ 400 mls/hr Q2H30M PRN IV PATENCY; Start 07/11/19 at 07:28; Stop 07/11/19 at 19:27; Status DC Info (PHARMACY MONITORING -- do not chart) 1 each PRN DAILY PRN MC SEE COMMENTS; Start 07/11/19 at 07:30; Stop 07/22/19 at 13:01; Status DC Metronidazole 100 ml @ 100 mls/hr Q6HRS IV Last administered on 07/27/19at 06:26; Start 07/11/19 at 08:30; Stop 07/27/19 at 09:58; Status DC Micafungin Sodium 100 mg/Dextrose 100 ml @ 100 mls/hr Q24H IV Last administered on 08/18/19at 08:18; Start 07/11/19 at 09:00; Stop 08/18/19 at 20:58; Status DC Propofol 0 ml @ As Directed STK-MED ONCE IV ; Start 07/11/19 at 07:53; Stop 07/11/19 at 07:53; Status DC Etomidate (Amidate) 20 mg STK-MED ONCE IV ; Start 07/11/19 at 07:53; Stop 07/11/19 at 07:54; Status DC Midazolam HCl (Versed) 5 mg STK-MED ONCE .ROUTE ; Start 07/11/19 at 07:57; Stop 07/11/19 at 07:57; Status DC Fentanyl Citrate 30 ml @ 0 mls/hr CONT PRN IV SEE PROTOCOL Last administered on 08/05/19at 06:12; Start 07/11/19 at 08:15; Stop 08/05/19 at 09:19; Status DC Artificial Tears (Artificial Tears) 1 drop PRN Q1HR PRN OU DRY EYE, 1st choice; Start 07/11/19 at 08:15; Stop 08/17/19 at 05:31; Status DC Midazolam HCl 50 mg/Sodium Chloride 50 ml @ 0 mls/hr CONT PRN IV SEE PROTOCOL Last administered on 07/14/19at 22:39; Start 07/11/19 at 08:15; Stop 07/16/19 at 15:59; Status DC Etomidate (Amidate) 8 mg 1X ONCE IV Last administered on 07/11/19at 08:33; Start 07/11/19 at 08:30; Stop 07/11/19 at 08:31; Status DC Succinylcholine Chloride (Anectine) 120 mg 1X ONCE IV Last administered on 07/11/19at 08:34; Start 07/11/19 at 08:30; Stop 07/11/19 at 08:31; Status DC Midazolam HCl (Versed) 5 mg 1X ONCE IV ; Start 07/11/19 at 08:30; Stop 07/11/19 at 08:31; Status DC Potassium Chloride 15 meq/ Bicarbonate Dialysis Soln w/ out KCl 5,007.5 ml @ 1,000 mls/ hr Q5H1M IV Last administered on 07/12/19at 11:11; Start 07/11/19 at 12:00; Stop 07/12/19 at 11:15; Status DC Potassium Chloride 15 meq/ Bicarbonate Dialysis Soln w/ out KCl 5,007.5 ml @ 1,000 mls/ hr Q5H1M IV Last administered on 07/12/19at 11:12; Start 07/11/19 at 12:00; Stop 07/12/19 at 11:17; Status DC Potassium Chloride 15 meq/ Bicarbonate Dialysis Soln w/ out KCl 5,007.5 ml @ 1,000 mls/ hr Q5H1M IV Last administered on 07/12/19at 11:11; Start 07/11/19 at 12:00; Stop 07/12/19 at 11:19; Status DC Sodium Chloride 90 meq/Potassium Chloride 15 meq/ Potassium Phosphate 10 mmol/ Magnesium Sulfate 10 meq/Calcium Gluconate 20 meq/ Multivitamins 10 ml/Chromium/ Copper/Manganese/ Seleni/Zn 0.5 ml/ Total Parenteral Nutrition/Amino Acids/Dextrose/ Fat Emulsion Intravenous 1,400 ml @ 58.333 mls/ hr TPN CONT IV Last administered on 07/11/19at 21:42; Start 07/11/19 at 22:00; Stop 07/12/19 at 21:59; Status DC Heparin Sodium (Porcine) (Heparin Sodium) 5,000 unit Q8HRS SQ Last administered on 07/16/19at 05:55; Start 07/11/19 at 15:00; Stop 07/16/19 at 13:28; Status DC Meropenem 500 mg/ Sodium Chloride 50 ml @ 100 mls/hr Q6HRS IV Last administered on 07/13/19at 06:00; Start 07/12/19 at 09:00; Stop 07/13/19 at 07:29; Status DC Potassium Phosphate 20 mmol/ Sodium Chloride 106.6667 ml @ 51.667 m... 1X ONCE IV Last administered on 07/12/19at 11:22; Start 07/12/19 at 10:15; Stop 07/12/19 at 12:18; Status DC Acetaminophen (Tylenol Supp) 650 mg PRN Q6HRS PRN [place] MILD PAIN / TEMP > 100.3'F Last administered on 11/28/19at 15:43; Start 07/12/19 at 10:30 Potassium Chloride/Water 100 ml @ 100 mls/hr Q1H IV Last administered on at 12:12; Start 07/12/19 at 11:00; Stop 07/12/19 at 12:59; Status DC Potassium Chloride 20 meq/ Bicarbonate Dialysis Soln w/ out KCl 5,010 ml @ 1,000 mls/hr Q5H1M IV Last administered on 07/13/19at 08:48; Start 07/12/19 at 12:00; Stop 07/13/19 at 13:03; Status DC Potassium Chloride 20 meq/ Bicarbonate Dialysis Soln w/ out KCl 5,010 ml @ 1,000 mls/hr Q5H1M IV Last administered on 07/17/19at 14:52; Start 07/12/19 at 11:30; Stop 07/17/19 at 19:59; Status DC Potassium Chloride 20 meq/ Bicarbonate Dialysis Soln w/ out KCl 5,010 ml @ 1,000 mls/hr Q5H1M IV Last administered on 07/17/19at 14:53; Start 07/12/19 at 11:30; Stop 07/17/19 at 19:59; Status DC Sodium Chloride 90 meq/Potassium Chloride 15 meq/ Potassium Phosphate 15 mmol/ Magnesium Sulfate 10 meq/Calcium Gluconate 15 meq/ Multivitamins 10 ml/Chromium/ Copper/Manganese/ Seleni/Zn 0.5 ml/ Total Parenteral Nutrition/Amino Acid s/Dextrose/ Fat Emulsion Intravenous 1,400 ml @ 58.333 mls/ hr TPN CONT IV Last administered on 07/12/19at 22:17; Start 07/12/19 at 22:00; Stop 07/13/19 at 21:59; Status DC Cefepime HCl (Maxipime) 2 gm Q12HR IVP Last administered on 07/26/19at 20:56; St art 07/13/19 at 09:00; Stop 07/27/19 at 09:58; Status DC Daptomycin 500 mg/ Sodium Chloride 50 ml @ 100 mls/hr Q48H IV Last adm inistered on 07/29/19at 09:57; Start 07/13/19 at 08:30; Stop 07/29/19 at 10:07; Status DC Lidocaine HCl (Buffered Lidocaine 1%) 3 ml 1X ONCE INJ Last administered on 07/13/19at 10:27; Start 07/13/19 at 10:30; Stop 07/13/19 at 10:31; Status DC Potassium Phosphate 20 mmol/ Sodium Chloride 106.6667 ml @ 51.667 m... 1X ONCE IV Last administered on 07/13/19at 12:51; Start 07/13/19 at 13:00; Stop 07/13/19 at 15:03; Status DC Sodium Chloride 90 meq/Potassium Chloride 15 meq/ Potassium Phosphate 18 mmol/ Magnesium Sulfate 8 meq/Calcium Gluconate 15 meq/ Multivitamins 10 ml/Chromium/ Copper/Manganese/ Seleni/Zn 0.5 ml/ Total Parenteral Nutrition/Amino Acids/Dextrose/ Fat Emulsion Intravenous 1,400 ml @ 58.333 mls/ hr TPN CONT IV Last administered on 07/13/19at 22:16; Start 07/13/19 at 22:00; Stop 07/14/19 at 21:59; Status DC Potassium Chloride 20 meq/ Bicarbonate Dialysis Soln w/ out KCl 5,010 ml @ 1,000 mls/hr Q5H1M IV Last administered on 07/17/19at 14:54; Start 07/13/19 at 16:00; Stop 07/17/19 at 19:59; Status DC Multi-Ingred Cream/Lotion/Oil/ Oint (Artificial Tears Eye Ointment) 1 ramu PRN Q1HR PRN OU DRY EYE, 2nd choice Last administered on 08/01/19at 08:19; Start 07/13/19 at 17:30; Stop 09/21/19 at 14:39; Status DC Sodium Chloride 90 meq/Potassium Chloride 15 meq/ Potassium Phosphate 18 mmol/ Magnesium Sulfate 8 meq/Calcium Gluconate 15 meq/ Multivitamins 10 ml/Chromium/ Copper/Manganese/ Seleni/Zn 0.5 ml/ Total Parenteral Nutrition/Amino Acids/Dextrose/ Fat Emulsion Intravenous 1,400 ml @ 58.333 mls/ hr TPN CONT IV Last administered on 07/14/19at 22:00; Start 07/14/19 at 22:00; Stop 07/15/19 at 21:59; Status DC Albumin Human 500 ml @ 125 mls/hr 1X ONCE IV ; Start 07/14/19 at 14:15; Stop 07/14/19 at 18:14; Status DC Sodium Chloride 90 meq/Potassium Chloride 15 meq/ Potassium Phosphate 18 mmol/ Magnesium Sulfate 8 meq/Calcium Gluconate 15 meq/ Multivitamins 10 ml/Chromium/ Copper/Manganese/ Seleni/Zn 0.5 ml/ Insulin Human Regular 10 unit/ Total Parenteral Nutrition/Amino Acids/Dextrose/ Fat Emulsion Intravenous 1,400 ml @ 58.333 mls/ hr TPN CONT IV Last administered on 07/15/19at 21:43; Start 07/15/19 at 22:00; Stop 07/16/19 at 21:59; Status DC Lidocaine HCl (Buffered Lidocaine 1%) 3 ml STK-MED ONCE .ROUTE ; Start 07/13/19 at 10:00; Stop 07/15/19 at 13:57; Status DC Midazolam HCl 100 mg/Sodium Chloride 100 ml @ 7 mls/hr CONT PRN IV SEE PROTOCOL Last administered on 07/27/19at 15:35; Start 07/16/19 at 16:00; Stop 09/21/19 at 14:38; Status DC Sodium Chloride 90 meq/Potassium Chloride 15 meq/ Potassium Phosphate 18 mmol/ Magnesium Sulfate 8 meq/Calcium Gluconate 15 meq/ Multivitamins 10 ml/Chromium/ Copper/Manganese/ Seleni/Zn 0.5 ml/ Insulin Human Regular 15 unit/ Total Parenteral Nutrition/Amino Acids/Dextrose/ Fat Emulsion Intravenous 1,400 ml @ 58.333 mls/ hr TPN CONT IV Last administered on 07/16/19at 20:34; Start 07/16/19 at 22:00; Stop 07/17/19 at 21:59; Status DC Info (Icu Electrolyte Protocol) 1 ea CONT PRN PRN MC PER PROTOCOL; Start 07/17/19 at 13:15; Stop 12/05/19 at 17:07; Status DC Sodium Chloride 90 meq/Potassium Chloride 15 meq/ Potassium Phosphate 18 mmol/ Magnesium Sulfate 8 meq/Calcium Gluconate 15 meq/ Multivitamins 10 ml/Chromium/ Copper/Manganese/ Seleni/Zn 0.5 ml/ Insulin Human Regular 15 unit/ Total Parenteral Nutrition/Amino Acids/Dextrose/ Fat Emulsion Intravenous 1,400 ml @ 58.333 mls/ hr TPN CONT IV Last administered on 07/17/19at 22:05; Start 07/16 at 22:00; Stop 07/18/19 at 21:59; Status DC Potassium Chloride 15 meq/ Bicarbonate Dialysis Soln w/ out KCl 5,007.5 ml @ 1 ,000 mls/ hr Q5H1M IV Last administered on 07/20/19at 18:14; Start 07/17/19 at 20:00; Stop 07/21/19 at 13:08; Status DC Potassium Chloride 15 meq/ Bicarbonate Dialysis Soln w/ out KCl 5,007.5 ml @ 1,000 mls/ hr Q5H1M IV Last administered on 07/20/19at 18:14; Start 07/17/19 at 20:00; Stop 07/21/19 at 13:08; Status DC Potassium Chloride 15 meq/ Bicarbonate Dialysis Soln w/ out KCl 5,007.5 ml @ 1,000 mls/ hr Q5H1M IV Last administered on 07/20/19at 18:14; Start 07/17/19 at 20:00; Stop 07/21/19 at 13:08; Status DC Iohexol (Omnipaque 240 Mg/ml) 30 ml 1X ONCE PO Last administered on 07/18/19at 11:30; Start 07/18/19 at 11:30; Stop 07/18/19 at 11:33; Status DC Info (CONTRAST GIVEN -- Rx MONITORING) 1 each PRN DAILY PRN MC SEE COMMENTS; Start 07/18/19 at 11:45; Stop 07/20/19 at 11:44; Status DC Sodium Chloride 90 meq/Potassium Chloride 15 meq/ Potassium Phosphate 18 mmol/ Magnesium Sulfate 8 meq/Calcium Gluconate 15 meq/ Multivitamins 10 ml/Chromium/ Copper/Manganese/ Seleni/Zn 0.5 ml/ Insulin Human Regular 15 unit/ Total Parenteral Nutrition/Amino Acids/Dextrose/ Fat Emulsion Intravenous 1,400 ml @ 58.333 mls/ hr TPN CONT IV Last administered on 07/18/19at 21:47; Start 07/18/19 at 22:00; Stop 07/19/19 at 21:59; Status DC Sodium Chloride 90 meq/Potassium Chloride 15 meq/ Potassium Phosphate 18 mmol/ Magnesium Sulfate 8 meq/Calcium Gluconate 15 meq/ Multivitamins 10 ml/Chromium/ Copper/Manganese/ Seleni/Zn 0.5 ml/ Insulin Human Regular 20 unit/ Total Parenteral Nutrition/Amino Acids/Dextrose/ Fat Emulsion Intravenous 1,400 ml @ 58.333 mls/ hr TPN CONT IV Last administered on 07/19/19at 21:36; Start 07/19/19 at 22:00; Stop 07/20/19 at 21:59; Status DC Alteplase, Recombinant (Cathflo For Central Catheter Clearance) 1 mg 1X ONCE INT CAT Last administered on 07/19/19at 20:03; Start 07/19/19 at 19:30; Stop 07/19/19 at 19:46; Status DC Alteplase, Recombinant (Cathflo For Central Catheter Clearance) 1 mg 1X ONCE INT CAT Last administered on 07/19/19at 22:05; Start 07/19/19 at 22:00; Stop 07/19/19 at 22:01; Status DC Sodium Chloride 90 meq/Potassium Chloride 15 meq/ Potassium Phosphate 18 mmol/ Magnesium Sulfate 8 meq/Calcium Gluconate 15 meq/ Multivitamins 10 ml/Chromium/ Copper/Manganese/ Seleni/Zn 0.5 ml/ Insulin Human Regular 20 unit/ Total Parenteral Nutrition/Amino Acids/Dextrose/ Fat Emulsion Intravenous 1,400 ml @ 58.333 mls/ hr TPN CONT IV Last administered on 07/20/19at 21:30; Start 07/20/19 at 22:00; Stop 07/21/19 at 21:59; Status DC Dexmedetomidine HCl 400 mcg/ Sodium Chloride 100 ml @ 0 mls/hr CONT PRN IV AN XIETY / AGITATION Last administered on 09/17/19at 12:57; Start 07/21/19 at 08:15; Stop 09/17/19 at 18:31; Status DC Sodium Chloride 500 ml @ 500 mls/hr 1X PRN PRN IV ELEVATED BP, SEE COMMENTS; Start 07/21/19 at 08:15; Stop 11/23/19 at 09:08; Status DC Atropine Sulfate (ATROPINE 0.5mg SYRINGE) 0.5 mg PRN Q5MIN PRN IV SEE COMMENTS; Start 07/21/19 at 08:15; Stop 11/21/19 at 09:45; Status DC Furosemide (Lasix) 20 mg 1X ONCE IVP Last administered on 07/21/19at 08:19; Start 07/21/19 at 08:15; Stop 07/21/19 at 08:16; Status DC Lidocaine HCl (Buffered Lidocaine 1%) 3 ml STK-MED ONCE .ROUTE ; Start 07/21/19 at 08:39; Stop 07/21/19 at 08:39; Status DC Lidocaine HCl (Buffered Lidocaine 1%) 6 ml 1X ONCE INJ Last administered on 07/21/19at 09:05; Start 07/21/19 at 09:00; Stop 07/21/19 at 09:06; Status DC Sodium Chloride 90 meq/Potassium Chloride 15 meq/ Potassium Phosphate 18 mmol/ Magnesium Sulfate 8 meq/Calcium Gluconate 15 meq/ Multivitamins 10 ml/Chromium/ Copper/Manganese/ Seleni/Zn 0.5 ml/ Insulin Human Regular 20 unit/ Total Parenteral Nutrition/Amino Acids/Dextrose/ Fat Emulsion Intravenous 1,400 ml @ 58.333 mls/ hr TPN CONT IV Last administered on 07/21/19at 22:45; Start 07/21/19 at 22:00; Stop 07/22/19 at 21:59; Status DC Sodium Chloride 1,000 ml @ 1,000 mls/hr Q1H PRN IV hypotension; Start 07/22/19 at 07:30; Stop 07/22/19 at 13:29; Status DC Albumin Human 200 ml @ 200 mls/hr 1X PRN PRN IV Hypotension Last administered on 07/22/19at 09:36; Start 07/22/19 at 07:30; Stop 07/22/19 at 13:29; Status DC Sodium Chloride (Normal Saline Flush) 10 ml 1X PRN PRN IV AP catheter pack; Start 07/22/19 at 07:30; Stop 07/22/19 at 21:29; Status DC Sodium Chloride (Normal Saline Flush) 10 ml 1X PRN PRN IV KILN CAR UNLOADER catheter pack; Start 07/22/19 at 07:30; Stop 07/23/19 at 07:29; Status DC Sodium Chloride 1,000 ml @ 400 mls/hr Q2H30M PRN IV PATENCY; Start 07/22/19 at 07:30; Stop 07/22/19 at 19:29; Status DC Info (PHARMACY MONITORING -- do not chart) 1 each PRN DAILY PRN MC SEE COMMENTS; Start 07/22/19 at 07:30; Stop 07/22/19 at 13:02; Status DC Info (PHARMACY MONITORING -- do not chart) 1 each PRN DAILY PRN MC SEE COMMENTS; Start 07/22/19 at 07:30; Stop 07/24/19 at 12:45; Status DC Sodium Chloride 90 meq/Potassium Chloride 15 meq/ Potassium Phosphate 10 mmol/ Magnesium Sulfate 8 meq/Calcium Gluconate 15 meq/ Multivitamins 10 ml/Chromium/ Copper/Manganese/ Seleni/Zn 0.5 ml/ Insulin Human Regular 25 unit/ Total Parenteral Nutrition/Amino Acids/Dextrose/ Fat Emulsion Intravenous 1,400 ml @ 58.333 mls/ hr TPN CONT IV Last administered on 07/22/19at 22:19; Start 07/22/19 at 22:00; Stop 07/23/19 at 21:59; Status DC Heparin Sodium (Porcine) (Heparin Sodium) 5,000 unit Q12HR SQ Last administered on 08/14/19at 08:59; Start 07/22/19 at 21:00; Stop 08/14/19 at 10:05; Status DC Ondansetron HCl (Zofran) 4 mg PRN Q6HRS PRN IV NAUSEA/VOMITING; Start 07/25/19 at 07:00; Stop 07/26/19 at 06:59; Status DC Fentanyl Citrate (Fentanyl 2ml Vial) 25 mcg PRN Q5MIN PRN IV MILD PAIN 1-3; Start 07/25/19 at 07:00; Stop 07/26/19 at 06:59; Status DC Fentanyl Citrate (Fentanyl 2ml Vial) 50 mcg PRN Q5MIN PRN IV MODERATE TO SEVERE PAIN; Start 07/25/19 at 07:00; Stop 07/26/19 at 06:59; Status DC Ringer's Solution 1,000 ml @ 30 mls/hr Q24H IV ; Start 07/25/19 at 07:00; Stop 07/25/19 at 18:59; Status DC Lidocaine HCl (Xylocaine-Mpf 1% 2ml Vial) 2 ml PRN 1X PRN ID PRIOR TO IV START; Start 07/25/19 at 07:00; Stop 07/26/19 at 06:59; Status DC Prochlorperazine Edisylate (Compazine) 5 mg PACU PRN PRN IV NAUSEA, MRX1; Start 07/25/19 at 07:00; Stop 07/26/19 at 06:59; Status DC Sodium Chloride 1,000 ml @ 1,000 mls/hr Q1H PRN IV hypotension; Start 07/23/19 at 09:10; Stop 07/23/19 at 15:09; Status DC Albumin Human 200 ml @ 200 mls/hr 1X PRN PRN IV Hypotension Last administered on 07/23/19at 10:10; Start 07/23/19 at 09:15; Stop 07/23/19 at 15:14; Status DC Sodium Chloride 1,000 ml @ 400 mls/hr Q2H30M PRN IV PATENCY; Start 07/23/19 at 09:10; Stop 07/23/19 at 21:09; Status DC Info (PHARMACY MONITORING -- do not chart) 1 each PRN DAILY PRN MC SEE COMMENTS; Start 07/23/19 at 09:15; Stop 07/24/19 at 12:45; Status DC Info (PHARMACY MONITORING -- do not chart) 1 each PRN DAILY PRN MC SEE COMMENTS; Start 07/23/19 at 09:15; Stop 07/24/19 at 12:45; Status DC Sodium Chloride 90 meq/Potassium Chloride 15 meq/ Potassium Phosphate 10 mmol/ Magnesium Sulfate 8 meq/Calcium Gluconate 15 meq/ Multivitamins 10 ml/Chromium/ Copper/Manganese/ Seleni/Zn 0.5 ml/ Insulin Human Regular 25 unit/ Total Par enteral Nutrition/Amino Acids/Dextrose/ Fat Emulsion Intravenous 1,400 ml @ 58.333 mls/ hr TPN CONT IV Last administered on 07/23/19at 22:10; Start 07/23/19 at 22:00; Stop 07/24/19 at 21:59; Status DC Magnesium Sulfate 50 ml @ 25 mls/hr PRN DAILY PRN IV for Mag < 1.7 on am labs Last administered on 10/06/19at 10:57; Start 07/24/19 at 09:15; Stop 12/05/19 at 17:07; Status DC Sodium Chloride 90 meq/Potassium Chloride 15 meq/ Potassium Phosphate 10 mmol/ Magnesium Sulfate 8 meq/Calcium Gluconate 15 meq/ Multivitamins 10 ml/Chromium/ Copper/Manganese/ Seleni/Zn 0.5 ml/ Insulin Human Regular 25 unit/ Total Parenteral Nutrition/Amino Acids/Dextrose/ Fat Emulsion Intravenous 1,400 ml @ 58.333 mls/ hr TPN CONT IV Last administered on 07/24/19at 21:20; Start 07/24/19 at 22:00; Stop 07/25/19 at 21:59; Status DC Sodium Chloride 1,000 ml @ 1,000 mls/hr Q1H PRN IV hypotension; Start 07/24/19 at 12:23; Stop 07/24/19 at 18:22; Status DC Albumin Human 200 ml @ 200 mls/hr 1X ONCE IV Last administered on 07/24/19at 13:34; Start 07/24/19 at 12:30; Stop 07/24/19 at 13:29; Status DC Diphenhydramine HCl (Benadryl) 25 mg 1X PRN PRN IV ITCHING; Start 07/24/19 at 12:30; Stop 07/25/19 at 12:29; Status DC Diphenhydramine HCl (Benadryl) 25 mg 1X PRN PRN IV ITCHING; Start 07/24/19 at 12:30; Stop 07/25/19 at 12:29; Status DC Info (PHARMACY MONITORING -- do not chart) 1 each PRN DAILY PRN MC SEE COMMENTS; Start 07/24/19 at 12:30; Status Cancel Bupivacaine HCl/ Epinephrine Bitart (Sensorcain-Epi 0.5%-1:126717 Mpf) 30 ml STK-MED ONCE .ROUTE Last administered on 07/25/19at 11:44; Start 07/25/19 at 11:00; Stop 07/25/19 at 11:01; Status DC Cellulose (Surgicel Fibrillar 1x2) 1 each STK-MED ONCE .ROUTE ; Start 07/25/19 at 11:00; Stop 07/25/19 at 11:01; Status DC Sodium Chloride 90 meq/Potassium Chloride 15 meq/ Potassium Phosphate 10 mmol/ Magnesium Sulfate 12 meq/Calcium Gluconate 15 meq/ Multivitamins 10 ml/Chromium/ Copper/Manganese/ Seleni/Zn 0.5 ml/ Insulin Human Regular 25 unit/ Total Parenteral Nutrition/Amino Acids/Dextrose/ Fat Emulsion Intravenous 1,400 ml @ 58.333 mls/ hr TPN CONT IV Last administered on 07/25/19at 22:24; Start 07/25/19 at 22:00; Stop 07/26/19 at 21:59; Status DC Propofol 20 ml @ As Directed STK-MED ONCE IV ; Start 07/25/19 at 11:07; Stop 07/25/19 at 11:07; Status DC Cellulose (Surgicel Hemostat 4x8) 1 each STK-MED ONCE .ROUTE Last administered on 07/25/19at 11:44; Start 07/25/19 at 11:55; Stop 07/25/19 at 11:56; Status DC Sevoflurane (Ultane) 60 ml STK-MED ONCE IH ; Start 07/25/19 at 12:46; Stop 07/25/19 at 12:46; Status DC Sodium Chloride 1,000 ml @ 1,000 mls/hr Q1H PRN IV hypotension; Start 07/25/19 at 13:51; Stop 07/25/19 at 19:50; Status DC Albumin Human 200 ml @ 200 mls/hr 1X PRN PRN IV Hypotension Last administered on 07/25/19at 14:51; Start 07/25/19 at 14:00; Stop 07/25/19 at 19:59; Status DC Diphenhydramine HCl (Benadryl) 25 mg 1X PRN PRN IV ITCHING; Start 07/25/19 at 14:00; Stop 07/26/19 at 13:59; Status DC Diphenhydramine HCl (Benadryl) 25 mg 1X PRN PRN IV ITCHING; Start 07/25/19 at 14:00; Stop 07/26/19 at 13:59; Status DC Sodium Chloride 1,000 ml @ 400 mls/hr Q2H30M PRN IV PATENCY; Start 07/25/19 at 13:51; Stop 07/26/19 at 01:50; Status DC Info (PHARMACY MONITORING -- do not chart) 1 each PRN DAILY PRN MC SEE COMMENTS; Start 07/25/19 at 14:00; Stop 07/28/19 at 08:16; Status DC Heparin Sodium (Porcine) (Hep Lock Adult) 500 unit STK-MED ONCE IVP ; Start 07/26/19 at 09:29; Stop 07/26/19 at 09:30; Status DC Sodium Chloride 1,000 ml @ 1,000 mls/hr Q1H PRN IV hypotension; Start 07/26/19 at 10:43; Stop 07/26/19 at 16:42; Status DC Sodium Chloride 1,000 ml @ 400 mls/hr Q2H30M PRN IV PATENCY; Start 07/26/19 at 10:43; Stop 07/26/19 at 22:42; Status DC Info (PHARMACY MONITORING -- do not chart) 1 each PRN DAILY PRN MC SEE COMMENTS; Start 07/26/19 at 10:45; Status UNV Info (PHARMACY MONITORING -- do not chart) 1 each PRN DAILY PRN MC SEE COMMENTS; Start 07/26/19 at 10:45; Status UNV Sodium Chloride 90 meq/Potassium Chloride 15 meq/ Magnesium Sulfate 12 meq/Calcium Gluconate 15 meq/ Multivitamins 10 ml/Chromium/ Copper/Manganese/ Seleni/Zn 0.5 ml/ Insulin Human Regular 25 unit/ Total Parenteral Nutrition/Amino Acids/Dextrose/ Fat Emulsion Intravenous 1,400 ml @ 58.333 mls/ hr TPN CONT IV Last administered on 07/26/19at 22:13; Start 07/26/19 at 22:00; Stop 07/27/19 at 21:59; Status DC Sodium Chloride 1,000 ml @ 1,000 mls/hr Q1H PRN IV hypotension; Start 07/27/19 at 07:50; Stop 07/27/19 at 13:49; Status DC Albumin Human 200 ml @ 200 mls/hr 1X ONCE IV ; Start 07/27/19 at 08:00; Stop 07/27/19 at 08:53; Status DC Diphenhydramine HCl (Benadryl) 25 mg 1X PRN PRN IV ITCHING; Start 07/27/19 at 08:00; Stop 07/28/19 at 07:59; Status DC Diphenhydramine HCl (Benadryl) 25 mg 1X PRN PRN IV ITCHING; Start 07/27/19 at 08:00; Stop 07/28/19 at 07:59; Status DC Info (PHARMACY MONITORING -- do not chart) 1 each PRN DAILY PRN MC SEE COMMENTS; Start 07/27/19 at 08:00; Stop 07/28/19 at 08:16; Status DC Albumin Human 50 ml @ 50 mls/hr 1X ONCE IV ; Start 07/27/19 at 08:53; Stop 07/27/19 at 08:56; Status DC Albumin Human 200 ml @ 50 mls/hr PRN 1X PRN IV HYPOTENSION Last administered on 08/02/19at 11:54; Start 07/27/19 at 09:00; Stop 09/08/19 at 11:14; Status DC Meropenem 500 mg/ Sodium Chloride 50 ml @ 100 mls/hr Q12H IV Last administered on 08/16/19at 10:45; Start 07/27/19 at 10:00; Stop 08/16/19 at 12:37; Status DC Sodium Chloride 90 meq/Magnesium Sulfate 12 meq/ Calcium Gluconate 15 meq/ Multivitamins 10 ml/Chromium/ Copper/Manganese/ Seleni/Zn 0.5 ml/ Insulin Human Regular 25 unit/ Total Parenteral Nutrition/Amino Acids/Dextrose/ Fat Emulsion Intravenous 1,400 ml @ 58.333 mls/ hr TPN CONT IV Last administered on 07/27/19at 21:41; Start 07/27/19 at 22:00; Stop 07/28/19 at 21:59; Status DC Sodium Chloride 1,000 ml @ 1,000 mls/hr Q1H PRN IV hypotension; Start 07/28/19 at 07:58; Stop 07/28/19 at 13:57; Status DC Albumin Human 200 ml @ 200 mls/hr 1X PRN PRN IV Hypotension Last administered on 07/28/19at 09:30; Start 07/28/19 at 08:00; Stop 07/28/19 at 13:59; Status DC Sodium Chloride 1,000 ml @ 400 mls/hr Q2H30M PRN IV PATENCY; Start 07/28/19 at 07:58; Stop 07/28/19 at 19:57; Status DC Info (PHARMACY MONITORING -- do not chart) 1 each PRN DAILY PRN MC SEE COMMENTS; Start 07/28/19 at 08:00; Status Cancel Info (PHARMACY MONITORING -- do not chart) 1 each PRN DAILY PRN MC SEE COMMENTS; Start 07/28/19 at 08:15; Status UNV Sodium Chloride 90 meq/Potassium Phosphate 5 mmol/ Magnesium Sulfate 12 meq/Calcium Gluconate 15 meq/ Multivitamins 10 ml/Chromium/ Copper/Manganese/ Seleni/Zn 0.5 ml/ Insulin Human Regular 30 unit/ Total Parenteral Nutrition/Amino Acids/Dextrose/ Fat Emulsion Intravenous 1,400 ml @ 58.333 mls/ hr TPN CONT IV Last administered on 07/28/19at 22:08; Start 07/28/19 at 22:00; Stop 07/29/19 at 21:59; Status DC Linezolid/Dextrose 300 ml @ 300 mls/hr Q12HR IV Last administered on 08/08/19at 20:40; Start 07/29/19 at 11:00; Stop 08/09/19 at 08:10; Status DC Sodium Chloride 90 meq/Potassium Phosphate 15 mmol/ Magnesium Sulfate 12 meq/Calcium Gluconate 15 meq/ Multivitamins 10 ml/Chromium/ Copper/Manganese/ Seleni/Zn 0.5 ml/ Insulin Human Regular 30 unit/ Total Parenteral Nutrition/Amino Acids/Dextrose/ Fat Emulsion Intravenous 1,400 ml @ 58.333 mls/ hr TPN CONT IV Last administered on 07/29/19at 21:49; Start 07/29/19 at 22:00; Stop 07/30/19 at 21:59; Status DC Sodium Chloride 90 meq/Potassium Phosphate 15 mmol/ Magnesium Sulfate 12 meq/Calcium Gluconate 15 meq/ Multivitamins 10 ml/Chromium/ Copper/Manganese/ Seleni/Zn 0.5 ml/ Insulin Human Regular 40 unit/ Total Parenteral Nutrition/Amino Acids/Dextrose/ Fat Emulsion Intravenous 1,400 ml @ 58.333 mls/ hr TPN CONT IV Last administered on 07/30/19at 21:21; Start 07/30/19 at 22:00; Stop 07/31/19 at 21:59; Status DC Sodium Chloride 1,000 ml @ 1,000 mls/hr Q1H PRN IV hypotension; Start 07/30/19 at 13:26; Stop 07/30/19 at 19:25; Status DC Albumin Human 200 ml @ 200 mls/hr 1X PRN PRN IV Hypotension Last administered on 07/30/19at 15:00; Start 07/30/19 at 13:30; Stop 07/30/19 at 19:29; Status DC Sodium Chloride (Normal Saline Flush) 10 ml 1X PRN PRN IV AP catheter pack; Start 07/30/19 at 13:30; Stop 07/31/19 at 13:29; Status DC Sodium Chloride (Normal Saline Flush) 10 ml 1X PRN PRN IV KILN CAR UNLOADER catheter pack; Start 07/30/19 at 13:30; Stop 07/31/19 at 13:29; Status DC Sodium Chloride 1,000 ml @ 400 mls/hr Q2H30M PRN IV PATENCY; Start 07/30/19 at 13:26; Stop 07/31/19 at 01:25; Status DC Info (PHARMACY MONITORING -- do not chart) 1 each PRN DAILY PRN MC SEE COMMENTS; Start 07/30/19 at 13:30; Stop 07/30/19 at 13:33; Status DC Info (PHARMACY MONITORING -- do not chart) 1 each PRN DAILY PRN MC SEE COMMENTS; Start 07/30/19 at 13:30; Stop 07/30/19 at 13:34; Status DC Sodium Chloride 90 meq/Potassium Phosphate 19 mmol/ Magnesium Sulfate 12 meq/Calcium Gluconate 15 meq/ Multivitamins 10 ml/Chromium/ Copper/Manganese/ Seleni/Zn 0.5 ml/ Insulin Human Regular 40 unit/ Total Parenteral Nutrition/Amino Acids/Dextrose/ Fat Emulsion Intravenous 1,400 ml @ 58.333 mls/ hr TPN CONT IV Last administered on 07/31/19at 21:54; Start 07/31/19 at 22:00; Stop 08/01/19 at 21:59; Status DC Sodium Chloride 1,000 ml @ 1,000 mls/hr Q1H PRN IV hypotension; Start 08/01/19 at 09:35; Stop 08/01/19 at 15:34; Status DC Albumin Human 200 ml @ 200 mls/hr 1X PRN PRN IV Hypotension; Start 08/01/19 at 09:45; Stop 08/01/19 at 15:44; Status DC Diphenhydramine HCl (Benadryl) 25 mg 1X PRN PRN IV ITCHING; Start 08/01/19 at 09:45; Stop 08/02/19 at 09:44; Status DC Diphenhydramine HCl (Benadryl) 25 mg 1X PRN PRN IV ITCHING; Start 08/01/19 at 09:45; Stop 08/02/19 at 09:44; Status DC Sodium Chloride 1,000 ml @ 400 mls/hr Q2H30M PRN IV PATENCY; Start 08/01/19 at 09:35; Stop 08/01/19 at 21:34; Status DC Info (PHARMACY MONITORING -- do not chart) 1 each PRN DAILY PRN MC SEE COMMENTS; Start 08/01/19 at 09:45; Status Cancel Sodium Chloride 100 meq/Potassium Phosphate 19 mmol/ Magnesium Sulfate 12 meq/Calcium Gluconate 15 meq/ Multivitamins 10 ml/Chromium/ Copper/Manganese/ Seleni/Zn 0.5 ml/ Insulin Human Regular 40 unit/ Potassium Chloride 20 meq/ Total Parenteral Nutrition/Amino Acids/Dextrose/ Fat Emulsion Intravenous 1,400 ml @ 58.333 mls/ hr TPN CONT IV Last administered on 08/01/19at 22:02; Start 08/01/19 at 22:00; Stop 08/02/19 at 21:59; Status DC Furosemide (Lasix) 40 mg 1X ONCE IVP Last administered on 08/01/19at 14:39; Start 08/01/19 at 14:30; Stop 08/01/19 at 14:31; Status DC Metronidazole 100 ml @ 100 mls/hr Q8HRS IV Last administered on 08/09/19at 06:04; Start 08/02/19 at 10:00; Stop 08/09/19 at 08:10; Status DC Sodium Chloride 1,000 ml @ 1,000 mls/hr Q1H PRN IV hypotension; Start 08/02/19 at 08:00; Stop 08/02/19 at 13:59; Status DC Albumin Human 200 ml @ 200 mls/hr 1X PRN PRN IV Hypotension; Start 08/02/19 at 08:00; Stop 08/02/19 at 13:59; Status DC Sodium Chloride 1,000 ml @ 400 mls/hr Q2H30M PRN IV PATENCY; Start 08/02/19 at 08:00; Stop 08/02/19 at 19:59; Status DC Info (PHARMACY MONITORING -- do not chart) 1 each PRN DAILY PRN MC SEE COMMENTS; Start 08/02/19 at 11:30; Status UNV Info (PHARMACY MONITORING -- do not chart) 1 each PRN DAILY PRN MC SEE COMMENTS; Start 08/02/19 at 11:30; Stop 08/04/19 at 12:13; Status DC Sodium Chloride 100 meq/Potassium Phosphate 19 mmol/ Magnesium Sulfate 12 meq/Calcium Gluconate 15 meq/ Multivitamins 10 ml/Chromium/ Copper/Manganese/ Seleni/Zn 0.5 ml/ Insulin Human Regular 40 unit/ Potassium Chloride 20 meq/ Total Parenteral Nutrition/Amino Acids/Dextrose/ Fat Emulsion Intravenous 1,400 ml @ 58.333 mls/ hr TPN CONT IV Last administered on 08/02/19at 21:52; Start 08/02/19 at 22:00; Stop 08/03/19 at 21:59; Status DC Sodium Chloride (Normal Saline Flush) 10 ml QSHIFT PRN IV AFTER MEDS AND BLOOD DRAWS; Start 08/02/19 at 15:00; Stop 08/30/19 at 11:27; Status DC Sodium Chloride (Normal Saline Flush) 10 ml PRN Q5MIN PRN IV AFTER MEDS AND BLOOD DRAWS; Start 08/02/19 at 15:00; Stop 11/19/19 at 10:12; Status DC Sodium Chloride (Normal Saline Flush) 20 ml PRN Q5MIN PRN IV AFTER MEDS AND BLOOD DRAWS; Start 08/02/19 at 15:00; Stop 12/05/19 at 17:07; Status DC Sodium Chloride 100 meq/Potassium Phosphate 19 mmol/ Magnesium Sulfate 12 meq/Calcium Gluconate 15 meq/ Multivitamins 10 ml/Chromium/ Copper/Manganese/ Se dinorah/Zn 0.5 ml/ Insulin Human Regular 40 unit/ Potassium Chloride 20 meq/ Total Parenteral Nutrition/Amino Acids/Dextrose/ Fat Emulsion Intravenous 1,400 ml @ 58.333 mls/ hr TPN CONT IV Last administered on 08/03/19at 21:20; Start 08/03/19 at 22:00; Stop 08/04/19 at 21:59; Status DC Lidocaine HCl (Buffered Lidocaine 1%) 3 ml STK-MED ONCE .ROUTE ; Start 08/03/19 at 13:16; Stop 08/03/19 at 13:16; Status DC Lidocaine HCl (Buffered Lidocaine 1%) 6 ml 1X ONCE INJ Last administered on 08/03/19at 13:45; Start 08/03/19 at 13:30; Stop 08/03/19 at 13:31; Status DC Albumin Human 100 ml @ 100 mls/hr 1X ONCE IV Last administered on 08/03/19at 15:41; Start 08/03/19 at 15:00; Stop 08/03/19 at 15:59; Status DC Albumin Human 50 ml @ 50 mls/hr 1X ONCE IV Last administered on 08/03/19at 15:00; Start 08/03/19 at 15:00; Stop 08/03/19 at 15:59; Status DC Info (PHARMACY MONITORING -- do not chart) 1 each PRN DAILY PRN MC SEE COMMENTS; Start 08/04/19 at 11:30; Status Cancel Info (PHARMACY MONITORING -- do not chart) 1 each PRN DAILY PRN MC SEE COMMENTS; Start 08/04/19 at 11:30; Status UNV Sodium Chloride 100 meq/Potassium Phosphate 10 mmol/ Magnesium Sulfate 12 meq/Calcium Gluconate 15 meq/ Multivitamins 10 ml/Chromium/ Copper/Manganese/ Seleni/Zn 0.5 ml/ Insulin Human Regular 35 unit/ Potassium Chloride 20 meq/ Total Parenteral Nutrition/Amino Acids/Dextrose/ Fat Emulsion Intravenous 1,400 ml @ 58.333 mls/ hr TPN CONT IV Last administered on 08/04/19at 22:10; Start 08/04/19 at 22:00; Stop 08/05/19 at 21:59; Status DC Sodium Chloride 100 meq/Potassium Phosphate 5 mmol/ Magnesium Sulfate 12 meq/Calcium Gluconate 15 meq/ Multivitamins 10 ml/Chromium/ Copper/Manganese/ Seleni/Zn 0.5 ml/ Insulin Human Regular 35 unit/ Potassium Chloride 20 meq/ Total Parenteral Nutrition/Amino Acids/Dextrose/ Fat Emulsion Intravenous 1,400 ml @ 58.333 mls/ hr TPN CONT IV Last administered on 08/05/19at 22:59; Start 08/05/19 at 22:00; Stop 08/06/19 at 21:59; Status DC Sodium Chloride 1,000 ml @ 1,000 mls/hr Q1H PRN IV hypotension; Start 08/06/19 at 08:27; Stop 08/06/19 at 14:26; Status DC Albumin Human 200 ml @ 200 mls/hr 1X PRN PRN IV Hypotension Last administered on 08/06/19at 09:18; Start 08/06/19 at 08:30; Stop 08/06/19 at 14:29; Status DC Sodium Chloride 1,000 ml @ 400 mls/hr Q2H30M PRN IV PATENCY; Start 08/06/19 at 08:27; Stop 08/06/19 at 20:26; Status DC Info (PHARMACY MONITORING -- do not chart) 1 each PRN DAILY PRN MC SEE COMMENTS; Start 08/06/19 at 08:30; Status Cancel Info (PHARMACY MONITORING -- do not chart) 1 each PRN DAILY PRN MC SEE COMMENTS; Start 08/06/19 at 08:30; Stop 08/14/19 at 13:10; Status DC Sodium Chloride 100 meq/Potassium Chloride 40 meq/ Magnesium Sulfate 15 meq/Calcium Gluconate 15 meq/ Multivitamins 10 ml/Chromium/ Copper/Manganese/ Seleni/Zn 0.5 ml/ Insulin Human Regular 35 unit/ Total Parenteral Nutrition/Amino Acids/Dextrose/ Fat Emulsion Intravenous 1,400 ml @ 58.333 mls/ hr TPN CONT IV Last administered on 08/06/19at 22:00; Start 08/06/19 at 22:00; Stop 08/07/19 at 21:59; Status DC Potassium Chloride/Water 100 ml @ 100 mls/hr 1X ONCE IV Last administered on 08/06/19at 17:28; Start 08/06/19 at 14:45; Stop 08/06/19 at 15:44; Status DC Sodium Chloride 100 meq/Potassium Chloride 40 meq/ Magnesium Sulfate 15 meq/Calcium Gluconate 15 meq/ Multivitamins 10 ml/Chromium/ Copper/Manganese/ Seleni/Zn 0.5 ml/ Insulin Human Regular 35 unit/ Total Parenteral Nutrition/Amino Acids/Dextrose/ Fat Emulsion Intravenous 1,400 ml @ 58.333 mls/ hr TPN CONT IV Last administered on 08/07/19at 22:46; Start 08/07/19 at 22:00; Stop 08/08/19 at 21:59; Status DC Sodium Chloride 100 meq/Potassium Chloride 40 meq/ Magnesium Sulfate 20 meq/Calcium Gluconate 15 meq/ Multivitamins 10 ml/Chromium/ Copper/Manganese/ Seleni/Zn 0.5 ml/ Insulin Human Regular 35 unit/ Total Parenteral Nutrition/Amino Acids/Dextrose/ Fat Emulsion Intravenous 1,400 ml @ 58.333 mls/ hr TPN CONT IV Last administered on 08/08/19at 22:31; Start 08/08/19 at 22:00; Stop 08/09/19 at 21:59; Status DC Fentanyl Citrate (Fentanyl 2ml Vial) 50 mcg PRN Q2HR PRN IVP PAIN Last administered on 08/15/19at 13:32; Start 08/08/19 at 21:00; Stop 08/16/19 at 12:53; Status DC Fentanyl Citrate (Fentanyl 2ml Vial) 25 mcg PRN Q2HR PRN IVP PAIN; Start 08/08/19 at 21:00; Stop 08/16/19 at 12:54; Status DC Enoxaparin Sodium (Lovenox 100mg Syringe) 100 mg Q12HR SQ ; Start 08/09/19 at 21:00; Status UNV Amino Acids/ Glycerin/ Electrolytes 1,000 ml @ 75 mls/hr [id number] IV ; Start 08/08/19 at 21:15; Status UNV Sodium Chloride 1,000 ml @ 1,000 mls/hr Q1H PRN IV hypotension; Start 08/09/19 at 07:56; Stop 08/09/19 at 13:55; Status DC Albumin Human 200 ml @ 200 mls/hr 1X PRN PRN IV Hypotension Last administered on 08/09/19at 08:40; Start 08/09/19 at 08:00; Stop 08/09/19 at 13:59; Status DC Sodium Chloride 1,000 ml @ 400 mls/hr Q2H30M PRN IV PATENCY; Start 08/09/19 at 07:56; Stop 08/09/19 at 19:55; Status DC Info (PHARMACY MONITORING -- do not chart) 1 each PRN DAILY PRN MC SEE COMMENTS; Start 08/09/19 at 08:00; Status UNV Info (PHARMACY MONITORING -- do not chart) 1 each PRN DAILY PRN MC SEE COMMENTS; Start 08/09/19 at 08:00; Status UNV Daptomycin 430 mg/ Sodium Chloride 50 ml @ 100 mls/hr Q24H IV Last administered on 08/09/19at 12:35; Start 08/09/19 at 09:00; Stop 08/09/19 at 12:49; Status DC Sodium Chloride 100 meq/Potassium Chloride 40 meq/ Magnesium Sulfate 20 meq/Calcium Gluconate 15 meq/ Multivitamins 10 ml/Chromium/ Copper/Manganese/ Seleni/Zn 0.5 ml/ Insulin Human Regular 35 unit/ Total Parenteral Nutrition/Amino Acids/Dextrose/ Fat Emulsion Intravenous 1,400 ml @ 58.333 mls/ hr TPN CONT IV Last administered on 08/09/19at 21:26; Start 08/09/19 at 22:00; Stop 08/10/19 at 21:59; Status DC Daptomycin 430 mg/ Sodium Chloride 50 ml @ 100 mls/hr Q48H IV ; Start 08/11/19 at 09:00; Stop 08/10/19 at 11:55; Status DC Sodium Chloride 100 meq/Potassium Chloride 40 meq/ Magnesium Sulfate 20 meq/Calcium Gluconate 15 meq/ Multivitamins 10 ml/Chromium/ Copper/Manganese/ Seleni/Zn 0.5 ml/ Insulin Human Regular 35 unit/ Total Parenteral Nutrition/Amino Acids/Dextrose/ Fat Emulsion Intravenous 1,400 ml @ 58.333 mls/ hr TPN CONT IV Last administered on 08/10/19at 22:27; Start 08/10/19 at 22:00; Stop 08/11/19 at 21:59; Status DC Daptomycin 430 mg/ Sodium Chloride 50 ml @ 100 mls/hr Q24H IV Last administered on 08/12/19at 15:07; Start 08/10/19 at 13:00; Stop 08/13/19 at 13:15; Status DC Sodium Chloride 100 meq/Potassium Chloride 40 meq/ Magnesium Sulfate 20 meq/Calcium Gluconate 10 meq/ Multivitamins 10 ml/Chromium/ Copper/Manganese/ Seleni/Zn 0.5 ml/ Insulin Human Regular 35 unit/ Total Parenteral Nutrition/Amino Acids/Dextrose/ Fat Emulsion Intravenous 1,400 ml @ 58.333 mls/ hr TPN CONT IV Last administered on 08/12/19at 00:06; Start 08/11/19 at 22:00; Stop 08/12/19 at 21:59; Status DC Alteplase, Recombinant (Cathflo For Central Catheter Clearance) 1 mg 1X ONCE INT CAT Last administered on 08/12/19at 11:44; Start 08/12/19 at 10:45; Stop 08/12/19 at 10:46; Status DC Ondansetron HCl (Zofran) 4 mg PRN Q6HRS PRN IV NAUSEA/VOMITING; Start 08/15/19 at 07:00; Stop 08/16/19 at 06:59; Status DC Fentanyl Citrate (Fentanyl 2ml Vial) 25 mcg PRN Q5MIN PRN IV MILD PAIN 1-3; Start 08/15/19 at 07:00; Stop 08/16/19 at 06:59; Status DC Fentanyl Citrate (Fentanyl 2ml Vial) 50 mcg PRN Q5MIN PRN IV MODERATE TO SEVERE PAIN Last administered on 4/27/20at 10:17; Start 08/15/19 at 07:00; Stop 08/16/19 at 06:59; Status DC Ringer's Solution 1,000 ml @ 30 mls/hr Q24H IV ; Start 08/15/19 at 07:00; Stop 08/15/19 at 18:59; Status DC Lidocaine HCl (Xylocaine-Mpf 1% 2ml Vial) 2 ml PRN 1X PRN ID PRIOR TO IV START; Start 08/15/19 at 07:00; Stop 08/16/19 at 06:59; Status DC Prochlorperazine Edisylate (Compazine) 5 mg PACU PRN PRN IV NAUSEA, MRX1; Start 08/15/19 at 07:00; Stop 08/16/19 at 06:59; Status DC Sodium Acetate 50 meq/Potassium Acetate 55 meq/ Magnesium Sulfate 20 meq/Calcium Gluconate 10 meq/ Multivitamins 10 ml/Chromium/ Copper/Manganese/ Seleni/Zn 0.5 ml/ Insulin Human Regular 35 unit/ Total Parenteral Nutrition/Amino Acids/Dextrose/ Fat Emulsion Intravenous 1,400 ml @ 58.333 mls/ hr TPN CONT IV ; Start 08/12/19 at 22:00; Stop 08/12/19 at 14:15; Status DC Sodium Acetate 50 meq/Potassium Acetate 55 meq/ Magnesium Sulfate 20 meq/Calcium Gluconate 10 meq/ Multivitamins 10 ml/Chromium/ Copper/Manganese/ Seleni/Zn 0.5 ml/ Insulin Human Regular 35 unit/ Total Parenteral Nutrition/Amino Acids/Dextrose/ Fat Emulsion Intravenous 1,800 ml @ 75 mls/hr TPN CONT IV Last administered on 08/12/19at 22:38; Start 08/12/19 at 22:00; Stop 08/13/19 at 21:59; Status DC Sodium Chloride 1,000 ml @ 1,000 mls/hr Q1H PRN IV hypotension; Start 08/12/19 at 15:31; Stop 08/12/19 at 21:30; Status DC Diphenhydramine HCl (Benadryl) 25 mg 1X PRN PRN IV ITCHING; Start 08/12/19 at 15:45; Stop 08/13/19 at 15:44; Status DC Diphenhydramine HCl (Benadryl) 25 mg 1X PRN PRN IV ITCHING; Start 08/12/19 at 15:45; Stop 08/13/19 at 15:44; Status DC Sodium Chloride 1,000 ml @ 400 mls/hr Q2H30M PRN IV PATENCY; Start 08/12/19 at 15:31; Stop 08/13/19 at 03:30; Status DC Info (PHARMACY MONITORING -- do not chart) 1 each PRN DAILY PRN MC SEE COMMENTS; Start 08/12/19 at 15:45; Stop 09/13/19 at 14:14; Status DC Sodium Acetate 50 meq/Potassium Acetate 55 meq/ Magnesium Sulfate 20 meq/Calcium Gluconate 10 meq/ Multivitamins 10 ml/Chromium/ Copper/Manganese/ Seleni/Zn 0.5 ml/ Insulin Human Regular 35 unit/ Total Parenteral Nutrition/Amino Acids/Dextrose/ Fat Emulsion Intravenous 1,800 ml @ 75 mls/hr TPN CONT IV Last administered on 08/13/19at 22:03; Start 08/13/19 at 22:00; Stop 08/14/19 at 21:59; Status DC Daptomycin 430 mg/ Sodium Chloride 50 ml @ 100 mls/hr Q24H IV Last administered on 08/18/19at 13:00; Start 08/13/19 at 13:00; Stop 08/18/19 at 20:58; Status DC Heparin Sodium (Porcine) 1000 unit/Sodium Chloride 1,001 ml @ 1,001 mls/hr 1X ONCE IRR ; Start 08/15/19 at 06:00; Stop 08/15/19 at 06:59; Status DC Potassium Acetate 55 meq/Magnesium Sulfate 20 meq/ Calcium Gluconate 10 meq/ Multivitamins 10 ml/Chromium/ Copper/Manganese/ Seleni/Zn 0.5 ml/ Insulin Human Regular 35 unit/ Total Parenteral Nutrition/Amino Acids/Dextrose/ Fat Emulsion Intravenous 1,920 ml @ 80 mls/hr TPN CONT IV Last administered on 08/14/19at 22:10; Start 08/14/19 at 22:00; Stop 08/15/19 at 21:59; Status DC Dexamethasone Sodium Phosphate (Decadron) 4 mg STK-MED ONCE .ROUTE ; Start 08/15/19 at 10:56; Stop 08/15/19 at 10:57; Status DC Ondansetron HCl (Zofran) 4 mg STK-MED ONCE .ROUTE ; Start 08/15/19 at 10:56; Stop 08/15/19 at 10:57; Status DC Rocuronium [place] (Zemuron) 50 mg STK-MED ONCE .ROUTE ; Start 08/15/19 at 10:56; Stop 08/15/19 at 10:57; Status DC Fentanyl Citrate (Fentanyl 2ml Vial) 100 mcg STK-MED ONCE .ROUTE ; Start 08/15/19 at 10:56; Stop 08/15/19 at 10:57; Status DC Bupivacaine HCl/ Epinephrine Bitart (Sensorcain-Epi 0.5%-1:[id number] Mpf) 30 ml STK-MED ONCE .ROUTE Last administered on 08/15/19at 12:01; Start 08/15/19 at 10:58; Stop 08/15/19 at 10:58; Status DC Cellulose (Surgicel Hemostat 2x14) 1 each STK-MED ONCE .ROUTE ; Start 08/15/19 at 10:58; Stop 08/15/19 at 10:59; Status DC Iohexol (Omnipaque 300 Mg/ml) 50 ml STK-MED ONCE .ROUTE ; Start 08/15/19 at 10:58; Stop 08/15/19 at 10:59; Status DC Cellulose (Surgicel Hemostat 4x8) 1 each STK-MED ONCE .ROUTE ; Start 08/15/19 at 10:58; Stop 08/15/19 at 10:59; Status DC Bisacodyl (Dulcolax Supp) 10 mg STK-MED ONCE .ROUTE ; Start 08/15/19 at 10:59; Stop 08/15/19 at 10:59; Status DC Heparin Sodium (Porcine) 1000 unit/Sodium Chloride 1,001 ml @ 1,001 mls/hr 1X ONCE IRR ; Start 08/15/19 at 12:00; Stop 08/15/19 at 12:59; Status DC Propofol 20 ml @ As Directed STK-MED ONCE IV ; Start 08/15/19 at 11:05; Stop 08/15/19 at 11:05; Status DC Sevoflurane (Ultane) 90 ml STK-MED ONCE IH ; Start 08/15/19 at 11:05; Stop 08/15/19 at 11:05; Status DC Sevoflurane (Ultane) 60 ml STK-MED ONCE IH ; Start 08/15/19 at 12:26; Stop 08/15/19 at 12:27; Status DC Propofol 20 ml @ As Directed STK-MED ONCE IV ; Start 08/15/19 at 12:26; Stop 08/15/19 at 12:27; Status DC Phenylephrine HCl (PHENYLEPHRINE in 0.9% NACL PF) 1 mg STK-MED ONCE IV ; Start 08/15/19 at 12:34; Stop 08/15/19 at 12:34; Status DC Heparin Sodium (Porcine) (Heparin Sodium) 5,000 unit Q12HR SQ Last administered on 08/24/19at 20:57; Start 08/15/19 at 21:00; Stop 08/25/19 at 09:59; Status DC Sodium Chloride (Normal Saline Flush) 3 ml QSHIFT PRN IV AFTER MEDS AND BLOOD DRAWS; Start 08/15/19 at 13:45; Status Cancel Naloxone HCl (Narcan) 0.4 mg PRN Q2MIN PRN IV SEE INSTRUCTIONS Last administered on 09/24/19at 15:15; Start 08/15/19 at 13:45; Stop 10/19/19 at 16:00; Status DC Sodium Chloride 1,000 ml @ 25 mls/hr Q24H IV Last administered on 09/13/19at 13:37; Start 08/15/19 at 13:37; Stop 09/16/19 at 13:09; Status DC Naloxone HCl (Narcan) 0.4 mg PRN Q2MIN PRN IV SEE INSTRUCTIONS; Start 08/15/19 at 14:30; Status UNV Sodium Chloride 1,000 ml @ 25 mls/hr Q24H IV ; Start 08/15/19 at 14:30; Status UNV Hydromorphone HCl 30 ml @ 0 mls/hr CONT PRN PRN IV PER PROTOCOL Last administered on 08/20/19at 16:08; Start 08/15/19 at 14:30; Stop 08/22/19 at 08:55; Status DC Potassium Acetate 55 meq/Magnesium Sulfate 20 meq/ Calcium Gluconate 10 meq/ Multivitamins 10 ml/Chromium/ Copper/Manganese/ Seleni/Zn 0.5 ml/ Insulin Human Regular 35 unit/ Total Parenteral Nutrition/Amino Acids/Dextrose/ Fat Emulsion Intravenous 1,920 ml @ 80 mls/hr TPN CONT IV Last administered on 08/15/19at 22:01; Start 08/15/19 at 22:00; Stop 08/16/19 at 21:59; Status DC Bumetanide (Bumex) 2 mg [id number] IV Last administered on 08/19/19at 13:50; Start 08/16/19 at 14:00; Stop 08/20/19 at 14:10; Status DC Meropenem 1 gm/ Sodium Chloride 100 ml @ 200 mls/hr Q8HRS IV Last administered on 09/09/19at 05:53; Start 08/16/19 at 14:00; Stop 09/09/19 at 09:31; Status DC Potassium Acetate 55 meq/Magnesium Sulfate 20 meq/ Calcium Gluconate 10 meq/ Mul tivitamins 10 ml/Chromium/ Copper/Manganese/ Seleni/Zn 0.5 ml/ Insulin Human Regular 35 unit/ Total Parenteral Nutrition/Amino Acids/Dextrose/ Fat Emulsion Intravenous 1,920 ml @ 80 mls/hr TPN CONT IV Last administered on 08/16/19at 22:02; Start 08/16/19 at 22:00; Stop 08/17/19 at 21:59; Status DC Hydromorphone HCl (Dilaudid Standard AIRLINE PILOT/FIRST OFFICER) 12 mg STK-MED ONCE IV ; Start 08/15/19 at 14:35; Stop 08/16/19 at 13:53; Status DC Artificial Tears (Artificial Tears) 1 drop PRN Q15MIN PRN OU DRY EYE Last administered on 10/11/19at 21:17; Start 08/17/19 at 05:30 Hydromorphone HCl (Dilaudid Standard AIRLINE PILOT/FIRST OFFICER) 12 mg STK-MED ONCE IV ; Start 08/16/19 at 12:05; Stop 08/17/19 at 09:15; Status DC Potassium Acetate 65 meq/Magnesium Sulfate 20 meq/ Calcium Gluconate 10 meq/ Multivitamins 10 ml/Chromium/ Copper/Manganese/ Seleni/Zn 0.5 ml/ Insulin Human Regular 30 unit/ Total Parenteral Nutrition/Amino Acids/Dextrose/ Fat Emulsion Intravenous 1,920 ml @ 80 mls/hr TPN CONT IV Last administered on 08/17/19at 22:22; Start 08/17/19 at 22:00; Stop 08/18/19 at 21:59; Status DC Cyclobenzaprine HCl (Flexeril) 10 mg PRN Q6HRS PRN PO MUSCLE SPASMS Last administered on 12/03/19at 14:25; Start 08/18/19 at 10:45 Potassium Acetate 55 meq/Magnesium Sulfate 20 meq/ Calcium Gluconate 10 meq/ Multivitamins 10 ml/Chromium/ Copper/Manganese/ Seleni/Zn 0.5 ml/ Insulin Human Regular 30 unit/ Total Parenteral Nutrition/Amino Acids/Dextrose/ Fat Emulsion Intravenous 1,920 ml @ 80 mls/hr TPN CONT IV Last administered on 08/19/19at 01:00; Start 08/18/19 at 22:00; Stop 08/19/19 at 21:59; Status DC Magnesium Sulfate 50 ml @ 25 mls/hr 1X ONCE IV Last administered on 08/18/19at 17:18; Start 08/18/19 at 12:45; Stop 08/18/19 at 14:44; Status DC Potassium Chloride/Water 100 ml @ 100 mls/hr 1X ONCE IV Last administered on 08/19/19at 11:27; Start 08/19/19 at 12:00; Stop 08/19/19 at 12:59; Status DC Hydromorphone HCl (Dilaudid Standard AIRLINE PILOT/FIRST OFFICER) 12 mg STK-MED ONCE IV ; Start 08/17/19 at 10:50; Stop 08/19/19 at 11:02; Status DC Hydromorphone HCl (Dilaudid Standard AIRLINE PILOT/FIRST OFFICER) 12 mg STK-MED ONCE IV ; Start 08/18/19 at 13:47; Stop 08/19/19 at 11:03; Status DC Potassium Acetate 30 meq/Magnesium Sulfate 20 meq/ Calcium Gluconate 10 meq/ Multivitamins 10 ml/Chromium/ Copper/Manganese/ Seleni/Zn 0.5 ml/ Insulin Human Regular 30 unit/ Potassium Chloride 30 meq/ Total Parenteral Nutrition/Amino Acids/Dextrose/ Fat Emulsion Intravenous 1,920 ml @ 80 mls/hr TPN CONT IV Last administered on 08/19/19at 22:34; Start 08/19/19 at 22:00; Stop 08/20/19 at 21:59; Status DC Potassium Chloride/Water 100 ml @ 100 mls/hr Q1H IV Last administered on 08/20/19at 13:05; Start 08/20/19 at 07:00; Stop 08/20/19 at 10:59; Status DC Magnesium Sulfate 50 ml @ 25 mls/hr 1X ONCE IV Last administered on 08/20/19at 10:34; Start 08/20/19 at 10:30; Stop 08/20/19 at 12:29; Status DC Potassium Chloride 75 meq/ Magnesium Sulfate 20 meq/Calcium Gluconate 10 meq/ Multivitamins 10 ml/Chromium/ Copper/Manganese/ Seleni/Zn 0.5 ml/ Insulin Human Regular 30 unit/ Total Parenteral Nutrition/Amino Acids/Dextrose/ Fat Emulsion Intravenous 1,920 ml @ 80 mls/hr TPN CONT IV Last administered on 08/20/19at 21:51; Start 08/20/19 at 22:00; Stop 08/21/19 at 22:00; Status DC Potassium Chloride 75 meq/ Magnesium Sulfate 20 meq/Calcium Gluconate 10 meq/ Multivitamins 10 ml/Chromium/ Copper/Manganese/ Seleni/Zn 0.5 ml/ Insulin Human Regular 25 unit/ Total Parenteral Nutrition/Amino Acids/Dextrose/ Fat Emulsion Intravenous 1,920 ml @ 80 mls/hr TPN CONT IV Last administered on 08/21/19at 22:04; Start 08/21/19 at 22:00; Stop 08/22/19 at 21:59; Status DC Hydromorphone HCl (Dilaudid) 0.4 mg PRN Q4HRS PRN IVP PAIN Last administered on 08/22/19at 10:57; Start 08/22/19 at 09:00; Stop 08/22/19 at 18:59; Status DC Micafungin Sodium 100 mg/Dextrose 100 ml @ 100 mls/hr Q24H IV Last administered on 09/13/19at 12:17; Start 08/22/19 at 11:00; Stop 09/14/19 at 09:59; Status DC Daptomycin 485 mg/ Sodium Chloride 50 ml @ 100 mls/hr Q24H IV Last administered on 08/29/19at 13:10; Start 08/22/19 at 11:00; Stop 08/30/19 at 07:44; Status DC Potassium Chloride 75 meq/ Magnesium Sulfate 15 meq/Calcium Gluconate 8 meq/ Multivitamins 10 ml/Chromium/ Copper/Manganese/ Seleni/Zn 0.5 ml/ Insulin Human Regular 25 unit/ Total Parenteral Nutrition/Amino Acids/Dextrose/ Fat Emulsion Intravenous 1,920 ml @ 80 mls/hr TPN CONT IV Last administered on 08/22/19at 23:08; Start 08/22/19 at 22:00; Stop 08/23/19 at 21:59; Status DC Haloperidol Lactate (Haldol Inj) 3 mg 1X ONCE IVP Last administered on 08/22/19at 14:37; Start 08/22/19 at 14:30; Stop 08/22/19 at 14:31; Status DC Hydromorphone HCl (Dilaudid) 1 mg PRN Q4HRS PRN IVP PAIN Last administered on 09/05/19at 06:25; Start 08/22/19 at 19:00; Stop 09/05/19 at 17:10; Status DC Potassium Chloride 75 meq/ Magnesium Sulfate 15 meq/Calcium Gluconate 8 meq/ Multivitamins 10 ml/Chromium/ Copper/Manganese/ Seleni/Zn 0.5 ml/ Insulin Human Regular 20 unit/ Total Parenteral Nutrition/Amino Acids/Dextrose/ Fat Emulsion Intravenous 1,920 ml @ 80 mls/hr TPN CONT IV Last administered on 08/23/19at 22:10; Start 08/23/19 at 22:00; Stop 08/24/19 at 21:59; Status DC Lidocaine HCl (Buffered Lidocaine 1%) 3 ml STK-MED ONCE .ROUTE ; Start 08/24/19 at 11:31; Stop 08/24/19 at 11:31; Status DC Lidocaine HCl (Buffered Lidocaine 1%) 3 ml STK-MED ONCE .ROUTE ; Start 08/24/19 at 12:28; Stop 08/24/19 at 12:29; Status DC Lidocaine HCl (Buffered Lidocaine 1%) 6 ml 1X ONCE INJ Last administered on 08/24/19at 12:53; Start 08/24/19 at 12:45; Stop 08/24/19 at 12:46; Status DC Potassium Chloride 75 meq/ Magnesium Sulfate 15 meq/Calcium Gluconate 8 meq/ Multivitamins 10 ml/Chromium/ Copper/Manganese/ Seleni/Zn 0.5 ml/ Insulin Human Regular 20 unit/ Total Parenteral Nutrition/Amino Acids/Dextrose/ Fat Emulsion Intravenous 1,920 ml @ 80 mls/hr TPN CONT IV Last administered on 08/24/19at 22:00; Start 08/24/19 at 22:00; Stop 08/25/19 at 21:59; Status DC Potassium Chloride 75 meq/ Magnesium Sulfate 15 meq/Calcium Gluconate 8 meq/ Multivitamins 10 ml/Chromium/ Copper/Manganese/ Seleni/Zn 0.5 ml/ Insulin Human Regular 15 unit/ Total Parenteral Nutrition/Amino Acids/Dextrose/ Fat Emulsion Intravenous 1,920 ml @ 80 mls/hr TPN CONT IV Last administered on 08/25/19at 22:28; Start 08/25/19 at 22:00; Stop 08/26/19 at 21:59; Status DC Vecuronium [place] (Norcuron Bolus) 6 mg PRN Q6HRS PRN IV VENT ASYNCHRONY; Start 08/25/19 at 19:15; Stop 08/25/19 at 19:35; Status DC Bumetanide (Bumex) 2 mg 1X ONCE IV Last administered on 08/25/19at 22:09; Start 08/25/19 at 19:45; Stop 08/25/19 at 19:46; Status DC Lidocaine HCl (Buffered Lidocaine 1%) 3 ml STK-MED ONCE .ROUTE ; Start 08/26/19 at 07:59; Stop 08/26/19 at 07:59; Status DC Midazolam HCl (Versed) 5 mg STK-MED ONCE .ROUTE ; Start 08/26/19 at 08:36; Stop 08/26/19 at 08:36; Status DC Fentanyl Citrate (Fentanyl 5ml Vial) 250 mcg STK-MED ONCE .ROUTE ; Start 08/26/19 at 08:36; Stop 08/26/19 at 08:37; Status DC Lidocaine HCl (Buffered Lidocaine 1%) 3 ml 1X ONCE IJ Last administered on 08/26/19at 09:30; Start 08/26/19 at 09:15; Stop 08/26/19 at 09:16; Status DC Midazolam HCl (Versed) 5 mg 1X ONCE IV Last administered on 08/26/19at 09:30; Start 08/26/19 at 09:15; Stop 08/26/19 at 09:16; Status DC Fentanyl Citrate (Fentanyl 5ml Vial) 250 mcg 1X ONCE IV Last administered on 08/26/19at 09:30; Start 08/26/19 at 09:15; Stop 08/26/19 at 09:16; Status DC Bumetanide (Bumex) 2 mg DAILY IV Last administered on 09/05/19at 08:07; Start at 10:00; Stop 09/05/19 at 17:15; Status DC Potassium Chloride 75 meq/ Magnesium Sulfate 15 meq/ Multivitamins 10 ml/Microstrategy Developer mium/ Copper/Manganese/ Seleni/Zn 0.5 ml/ Insulin Human Regular 15 unit/ Total Parenteral Nutrition/Amino Acids/Dextrose/ Fat Emulsion Intravenous 1,920 ml @ 80 mls/hr TPN CONT IV Last administered on 08/26/19at 21:59; Start 08/26/19 at 22:00; Stop 08/27/19 at 21:59; Status DC Metoclopramide HCl (Reglan Vial) 10 mg PRN Q3HRS PRN IVP NAUSEA/VOMITING-3rd choice Last administered on 09/01/19at 04:25; Start 08/27/19 at 16:45; Stop 12/05/19 at 17:07; Status DC Potassium Chloride 75 meq/ Magnesium Sulfate 15 meq/ Multivitamins 10 ml/Chromium/ Copper/Manganese/ Seleni/Zn 0.5 ml/ Insulin Human Regular 15 unit/ Total Parenteral Nutrition/Amino Acids/Dextrose/ Fat Emulsion Intravenous 1,920 ml @ 80 mls/hr TPN CONT IV Last administered on 08/27/19at 22:41; Start 08/27/19 at 22:00; Stop 08/28/19 at 21:59; Status DC Magnesium Sulfate 50 ml @ 25 mls/hr 1X ONCE IV Last administered on 08/28/19at 10:44; Start 08/28/19 at 09:00; Stop 08/28/19 at 10:59; Status DC Potassium Chloride/Water 100 ml @ 100 mls/hr 1X ONCE IV Last administered on 08/28/19at 09:37; Start 08/28/19 at 09:00; Stop 08/28/19 at 09:59; Status DC Duloxetine HCl (Cymbalta) 30 mg DAILY PO Last administered on 08/29/19at 09:48; Start 08/28/19 at 14:00; Stop 08/31/19 at 10:25; Status DC Potassium Chloride 80 meq/ Magnesium Sulfate 20 meq/ Multivitamins 10 ml/Chromium/ Copper/Manganese/ Seleni/Zn 0.5 ml/ Insulin Human Regular 15 unit/ Total Parenteral Nutrition/Amino Acids/Dextrose/ Fat Emulsion Intravenous 1,920 ml @ 80 mls/hr TPN CONT IV Last administered on 08/28/19at 21:42; Start 08/28/19 at 22:00; Stop 08/29/19 at 21:59; Status DC Potassium Chloride 80 meq/ Magnesium Sulfate 20 meq/ Multivitamins 10 ml/Chromium/ Copper/Manganese/ Seleni/Zn 0.5 ml/ Insulin Human Regular 15 unit/ Total Parenteral Nutrition/Amino Acids/Dextrose/ Fat Emulsion Intravenous 1,920 ml @ 80 mls/hr TPN CONT IV Last administered on 08/29/19at 22:20; Start 08/29/19 at 22:00; Stop 08/30/19 at 21:59; Status DC Lidocaine HCl (Buffered Lidocaine 1%) 3 ml STK-MED ONCE .ROUTE ; Start 08/30/19 at 09:54; Stop 08/30/19 at 09:55; Status DC Hydromorphone HCl (Dilaudid Standard AIRLINE PILOT/FIRST OFFICER) 12 mg STK-MED ONCE IV ; Start 08/19/19 at 15:50; Stop 08/30/19 at 11:24; Status DC Potassium Chloride 80 meq/ Magnesium Sulfate 20 meq/ Multivitamins 10 ml/Chrom ium/ Copper/Manganese/ Seleni/Zn 0.5 ml/ Insulin Human Regular 15 unit/ Total Parenteral Nutrition/Amino Acids/Dextrose/ Fat Emulsion Intravenous 1,920 ml @ 80 mls/hr TPN CONT IV Last administered on 08/30/19at 21:40; Start 08/30/19 at 22:00; Stop 08/31/19 at 21:59; Status DC Lidocaine HCl (Buffered Lidocaine 1%) 6 ml 1X ONCE INJ Last administered on 08/30/19at 14:15; Start 08/30/19 at 14:15; Stop 08/30/19 at 14:16; Status DC Potassium Chloride 80 meq/ Magnesium Sulfate 20 meq/ Multivitamins 10 ml/Microstrategy Developer mium/ Copper/Manganese/ Seleni/Zn 1 ml/ Insulin Human Regular 15 unit/ Total Parenteral Nutrition/Amino Acids/Dextrose/ Fat Emulsion Intravenous 1,920 ml @ 80 mls/hr TPN CONT IV Last administered on 08/31/19at 22:04; Start 08/31/19 at 22:00; Stop 09/01/19 at 21:59; Status DC Potassium Chloride/Water 100 ml @ 100 mls/hr 1X ONCE IV Last administered on 09/01/19at 11:34; Start 09/01/19 at 11:00; Stop 09/01/19 at 11:59; Status DC Potassium Chloride 90 meq/ Magnesium Sulfate 20 meq/ Multivitamins 10 ml/Chr omium/ Copper/Manganese/ Seleni/Zn 1 ml/ Insulin Human Regular 15 unit/ Total Parenteral Nutrition/Amino Acids/Dextrose/ Fat Emulsion Intravenous 1,920 ml @ 80 mls/hr TPN CONT IV Last administered on 09/01/19at 22:57; Start 09/01/19 at 22:00; Stop 09/02/19 at 21:59; Status DC Potassium Chloride 90 meq/ Magnesium Sulfate 20 meq/ Multivitamins 10 ml/Chromium/ Copper/Manganese/ Seleni/Zn 1 ml/ Insulin Human Regular 15 unit/ Total Parenteral Nutrition/Amino Acids/Dextrose/ Fat Emulsion Intravenous 1,920 ml @ 80 mls/hr TPN CONT IV Last administered on 09/02/19at 22:48; Start 09/02/19 at 22:00; Stop 09/03/19 at 21:59; Status DC Potassium Chloride 90 meq/ Magnesium Sulfate 20 meq/ Multivitamins 10 ml/Chromium/ Copper/Manganese/ Seleni/Zn 1 ml/ Insulin Human Regular 15 unit/ Total Parenteral Nutrition/Amino Acids/Dextrose/ Fat Emulsion Intravenous 1,890 ml @ 78.75 mls/ hr TPN CONT IV Last administered on 09/03/19at 22:15; Start 09/03/19 at 22:00; Stop 09/04/19 at 21:59; Status DC Linezolid/Dextrose 300 ml @ 300 mls/hr Q12HR IV Last administered on 09/06/19at 21:08; Start 09/04/19 at 09:00; Stop 09/07/19 at 08:11; Status DC Daptomycin 450 mg/ Sodium Chloride 50 ml @ 100 mls/hr Q24H IV Last administered on 09/07/19at 09:25; Start 09/04/19 at 09:00; Stop 09/08/19 at 08:30; Status DC Potassium Chloride 90 meq/ Magnesium Sulfate 20 meq/ Multivitamins 10 ml/Chromium/ Copper/Manganese/ Seleni/Zn 1 ml/ Insulin Human Regular 15 unit/ Total Parenteral Nutrition/Amino Acids/Dextrose/ Fat Emulsion Intravenous 1,890 ml @ 78.75 mls/ hr TPN CONT IV Last administered on 09/04/19at 21:34; Start 09/04/19 at 22:00; Stop 09/05/19 at 21:59; Status DC Lorazepam (Ativan Inj) 2 mg STK-MED ONCE .ROUTE ; Start 09/04/19 at 14:58; Stop 09/04/19 at 14:58; Status DC Metoprolol Tartrate (Lopressor Vial) 5 mg 1X ONCE IVP Last administered on 09/04/19at 15:31; Start 09/04/19 at 15:15; Stop 09/04/19 at 15:16; Status DC Lorazepam (Ativan Inj) 2 mg 1X ONCE IVP Last administered on 09/04/19at 15:30; Start 09/04/19 at 15:15; Stop 09/04/19 at 15:16; Status DC Enoxaparin Sodium (Lovenox 40mg Syringe) 40 mg Q24H SQ Last administered on 09/23/19at 17:44; Start 09/04/19 at 17:00; Stop 09/25/19 at 06:50; Status DC Lorazepam (Ativan Inj) 1 mg PRN Q4HRS PRN IVP ANXIETY / AGITATION MILD-MOD Last administered on 09/18/19at 15:55; Start 09/04/19 at 19:15; Stop 09/20/19 at 11:45; Status DC Lorazepam (Ativan Inj) 2 mg PRN Q4HRS PRN IVP ANXIETY / AGITATION SEVERE Last administered on 09/19/19at 07:55; Start 09/04/19 at 19:15; Stop 09/20/19 at 11:45; Status DC Fentanyl Citrate (Fentanyl 2ml Vial) 50 mcg PRN Q4HRS PRN IVP SEVERE PAIN Last administered on 10/01/19at 05:15; Start 09/05/19 at 13:15; Stop 10/02/19 at 09:29; Status DC Fentanyl Citrate (Fentanyl 2ml Vial) 25 mcg PRN Q4HRS PRN IVP MODERATE PAIN L ast administered on 10/01/19at 00:27; Start 09/05/19 at 13:15; Stop 10/02/19 at 09:30; Status DC Potassium Chloride 90 meq/ Magnesium Sulfate 20 meq/ Multivitamins 10 ml/Chromium/ Copper/Manganese/ Seleni/Zn 1 ml/ Insulin Human Regular 15 unit/ Total Parenteral Nutrition/Amino Acids/Dextrose/ Fat Emulsion Intravenous 1,890 ml @ 78.75 mls/ hr TPN CONT IV Last administered on 09/05/19at 22:18; Start 09/05/19 at 22:00; Stop 09/06/19 at 21:59; Status DC Furosemide (Lasix) 40 mg 1X ONCE IVP Last administered on 09/05/19at 21:51; Start 09/05/19 at 21:45; Stop 09/05/19 at 21:48; Status DC Albumin Human 100 ml @ 100 mls/hr 1X PRN PRN IV SEE COMMENTS; Start 09/06/19 at 01:30; Stop 11/21/19 at 09:52; Status DC Furosemide (Lasix) 40 mg [id number] IVP Last administered on 09/21/19at 08:04; Start 09/06/19 at 14:00; Stop 09/21/19 at 13:07; Status DC Potassium Chloride 90 meq/ Magnesium Sulfate 20 meq/ Multivitamins 10 ml/Chromium/ Copper/Manganese/ Seleni/Zn 1 ml/ Insulin Human Regular 15 unit/ Total Parenteral Nutrition/Amino Acids/Dextrose/ Fat Emulsion Intravenous 1,800 ml @ 75 mls/hr TPN CONT IV Last administered on 09/06/19at 22:31; Start 09/06/19 at 22:00; Stop 09/07/19 at 21:59; Status DC Potassium Chloride 90 meq/ Magnesium Sulfate 20 meq/ Multivitamins 10 ml/Ch romium/ Copper/Manganese/ Seleni/Zn 1 ml/ Insulin Human Regular 15 unit/ Total Parenteral Nutrition/Amino Acids/Dextrose/ Fat Emulsion Intravenous 1,800 ml @ 75 mls/hr TPN CONT IV Last administered on 09/07/19at 22:28; Start 09/07/19 at 22:00; Stop 09/08/19 at 21:59; Status DC Potassium Chloride 110 meq/ Magnesium Sulfate 20 meq/ Multivitamins 10 ml/Chromium/ Copper/Manganese/ Seleni/Zn 1 ml/ Insulin Human Regular 15 unit/ Total Parenteral Nutrition/Amino Acids/Dextrose/ Fat Emulsion Intravenous 1,800 ml @ 75 mls/hr TPN CONT IV Last administered on 09/08/19at 22:01; Start 09/08/19 at 22:00; Stop 09/09/19 at 21:59; Status DC Saliva Substitute (Biotene Moisturizing Mouth) 2 spray PRN Q15MIN PRN PO DRY MOUTH; Start 09/08/19 at 11:00 Potassium Chloride 110 meq/ Magnesium Sulfate 20 meq/ Multivitamins 10 ml/Chromium/ Copper/Manganese/ Seleni/Zn 1 ml/ Insulin Human Regular 15 unit/ Total Parenteral Nutrition/Amino Acids/Dextrose/ Fat Emulsion Intravenous 1,800 ml @ 75 mls/hr TPN CONT IV Last administered on 09/09/19at 22:21; Start 09/09/19 at 22:00; Stop 09/10/19 at 21:59; Status DC Potassium Chloride 110 meq/ Magnesium Sulfate 20 meq/ Multivitamins 10 ml/Chromium/ Copper/Manganese/ Seleni/Zn 1 ml/ Insulin Human Regular 15 unit/ Total Parenteral Nutrition/Amino Acids/Dextrose/ Fat Emulsion Intravenous 1,800 ml @ 75 mls/hr TPN CONT IV Last administered on 09/10/19at 22:04; Start 09/10/19 at 22:00; Stop 09/11/19 at 21:59; Status DC Potassium Chloride 110 meq/ Magnesium Sulfate 20 meq/ Multivitamins 10 ml/C hromium/ Copper/Manganese/ Seleni/Zn 1 ml/ Insulin Human Regular 15 unit/ Total Parenteral Nutrition/Amino Acids/Dextrose/ Fat Emulsion Intravenous 1,800 ml @ 75 mls/hr TPN CONT IV Last administered on 09/11/19at 22:48; Start 09/11/19 at 22:00; Stop 09/12/19 at 21:59; Status DC Potassium Chloride 70 meq/ Magnesium Sulfate 20 meq/ Multivitamins 10 ml/Chromium/ Copper/Manganese/ Seleni/Zn 1 ml/ Insulin Human Regular 15 unit/ Total Parenteral Nutrition/Amino Acids/Dextrose/ Fat Emulsion Intravenous 1,800 ml @ 75 mls/hr TPN CONT IV Last administered on 09/12/19at 21:39; Start 09/12/19 at 22:00; Stop 09/13/19 at 21:59; Status DC Meropenem 500 mg/ Sodium Chloride 50 ml @ 100 mls/hr Q6HRS IV Last administered on 09/14/19at 06:02; Start 09/12/19 at 18:00; Stop 09/14/19 at 09:59; Status DC Barium Sulfate (Varibar Thin Liquid Apple) 148 gm 1X ONCE PO ; Start 09/13/19 at 11:45; Stop 09/13/19 at 11:49; Status DC Potassium Chloride 70 meq/ Magnesium Sulfate 20 meq/ Multivitamins 10 ml/Chromium/ Copper/Manganese/ Seleni/Zn 1 ml/ Insulin Human Regular 15 unit/ Total Parenteral Nutrition/Amino Acids/Dextrose/ Fat Emulsion Intravenous 1,800 ml @ 75 mls/hr TPN CONT IV Last administered on 09/13/19at 22:27; Start 09/13/19 at 22:00; Stop 09/14/19 at 21:59; Status DC Piperacillin Sod/ Tazobactam Sod 3.375 gm/Sodium Chloride 50 ml @ 100 mls/hr Q6HRS IV Last administered on 09/22/19at 06:10; Start 09/14/19 at 12:00; Stop 09/22/19 at 07:26; Status DC Potassium Chloride 70 meq/ Magnesium Sulfate 20 meq/ Multivitamins 10 ml /Chromium/ Copper/Manganese/ Seleni/Zn 1 ml/ Insulin Human Regular 15 unit/ Total Parenteral Nutrition/Amino Acids/Dextrose/ Fat Emulsion Intravenous 1,800 ml @ 75 mls/hr TPN CONT IV Last administered on 09/14/19at 22:03; Start 09/14/19 at 22:00; Stop 09/15/19 at 21:59; Status DC Potassium Chloride 70 meq/ Magnesium Sulfate 20 meq/ Multivitamins 10 ml/Chromium/ Copper/Manganese/ Seleni/Zn 1 ml/ Insulin Human Regular 15 unit/ Total Parenteral Nutrition/Amino Acids/Dextrose/ Fat Emulsion Intravenous 1,800 ml @ 75 mls/hr TPN CONT IV Last administered on 09/15/19at 22:33; Start 09/15/19 at 22:00; Stop 09/16/19 at 21:59; Status DC Potassium Chloride 70 meq/ Magnesium Sulfate 20 meq/ Multivitamins 10 ml/Chromium/ Copper/Manganese/ Seleni/Zn 1 ml/ Insulin Human Regular 15 unit/ Total Parenteral Nutrition/Amino Acids/Dextrose/ Fat Emulsion Intravenous 1,800 ml @ 75 mls/hr TPN CONT IV Last administered on 09/16/19at 23:13; Start 09/16/19 at 22:00; Stop 09/17/19 at 21:59; Status DC Potassium Chloride 80 meq/ Magnesium Sulfate 20 meq/ Multivitamins 10 ml/Chromium/ Copper/Manganese/ Seleni/Zn 1 ml/ Insulin Human Regular 15 unit/ Total Parenteral Nutrition/Amino Acids/Dextrose/ Fat Emulsion Intravenous 1,800 ml @ 75 mls/hr TPN CONT IV Last administered on 09/17/19at 22:30; Start 09/17/19 at 22:00; Stop 09/18/19 at 21:59; Status DC Potassium Chloride 80 meq/ Magnesium Sulfate 20 meq/ Multivitamins 10 ml/Chromium/ Copper/Manganese/ Seleni/Zn 1 ml/ Insulin Human Regular 15 unit/ Total Parenteral Nutrition/Amino Acids/Dextrose/ Fat Emulsion Intravenous 1,800 ml @ 75 mls/hr TPN CONT IV Last administered on 09/18/19at 21:54; Start 09/18/19 at 22:00; Stop 09/19/19 at 21:59; Status DC Potassium Chloride/Water 100 ml @ 100 mls/hr 1X ONCE IV Last administered on 09/19/19at 10:15; Start 09/19/19 at 10:00; Stop 09/19/19 at 10:59; Status DC Potassium Chloride 90 meq/ Magnesium Sulfate 20 meq/ Multivitamins 10 ml/Chromium/ Copper/Manganese/ Seleni/Zn 1 ml/ Insulin Human Regular 20 unit/ Total Parenteral Nutrition/Amino Acids/Dextrose/ Fat Emulsion Intravenous 1,800 ml @ 75 mls/hr TPN CONT IV Last administered on 09/19/19at 22:28; Start 09/19/19 at 22:00; Stop 09/20/19 at 21:59; Status DC Potassium Chloride 90 meq/ Magnesium Sulfate 20 meq/ Multivitamins 10 ml/Chromium/ Copper/Manganese/ Seleni/Zn 1 ml/ Insulin Human Regular 20 unit/ Total Parenteral Nutrition/Amino Acids/Dextrose/ Fat Emulsion Intravenous 1,800 ml @ 75 mls/hr TPN CONT IV Last administered on 09/20/19at 22:08; Start 09/20/19 at 22:00; Stop 09/21/19 at 21:59; Status DC Lorazepam (Ativan Inj) 0.25 mg PRN Q4HRS PRN IVP ANXIETY / AGITATION Last administered on 12/01/19at 15:56; Start 09/21/19 at 07:30 Potassium Chloride 90 meq/ Magnesium Sulfate 20 meq/ Multivitamins 10 ml/Chromium/ Copper/Manganese/ Seleni/Zn 1 ml/ Insulin Human Regular 20 unit/ Total Parenteral Nutrition/Amino Acids/Dextrose/ Fat Emulsion Intravenous 1,800 ml @ 75 mls/hr TPN CONT IV Last administered on 09/21/19at 23:13; Start 09/21/19 at 22:00; Stop 09/22/19 at 21:59; Status DC Furosemide (Lasix) 40 mg DAILY IVP Last administered on 09/23/19at 11:14; Start 09/21/19 at 13:30; Stop 09/25/19 at 09:12; Status DC Fluoxetine HCl (PROzac) 20 mg QHS PEG Last administered on 12/04/19at 21:02; Start 09/22/19 at 21:00; Stop 12/05/19 at 17:07; Status DC Fentanyl (Duragesic 50mcg/ Hr Patch) 1 patch Q72H TD Last administered on 09/22/19at 21:22; Start 09/22/19 at 21:00; Stop 10/01/19 at 12:00; Status DC Potassium Chloride 40 meq/ Potassium Acetate 60 meq/Magnesium Sulfate 10 meq/ Multivitamins 10 ml/Chromium/ Copper/Manganese/ Seleni/Zn 1 ml/ Insulin Human Regular 20 unit/ Total Parenteral Nutrition/Amino Acids/Dextrose/ Fat Emulsion Intravenous 1,800 ml @ 75 mls/hr TPN CONT IV Last administered on 09/23/19at 00:03; Start 09/22/19 at 22:00; Stop 09/23/19 at 21:59; Status DC Potassium Acetate 80 meq/Magnesium Sulfate 5 meq/ Multivitamins 10 ml/Chromium/ Copper/Manganese/ Seleni/Zn 1 ml/ Insulin Human Regular 20 unit/ Total Parenteral Nutrition/Amino Acids/Dextrose/ Fat Emulsion Intravenous 1,920 ml @ 80 mls/hr TPN CONT IV Last administered on 09/23/19at 21:59; Start 09/23/19 at 22:00; Stop 09/24/19 at 21:59; Status DC Potassium Acetate 60 meq/Magnesium Sulfate 5 meq/ Multivitamins 10 ml/Chromium/ Copper/Manganese/ Seleni/Zn 1 ml/ Insulin Human Regular 30 unit/ Total Paren teral Nutrition/Amino Acids/Dextrose/ Fat Emulsion Intravenous 1,920 ml @ 80 mls/hr TPN CONT IV Last administered on 09/24/19at 21:54; Start 09/24/19 at 22:00; Stop 09/25/19 at 21:59; Status DC Norepinephrine Bitartrate 8 mg/ Dextrose 258 ml @ 13.332 mls/ hr CONT PRN IV PER PROTOCOL Last administered on 10/20/19at 09:09; Start 09/25/19 at 06:30; Stop 11/21/19 at 09:45; Status DC Albumin Human 500 ml @ 125 mls/hr 1X ONCE IV Last administered on 09/25/19at 08:10; Start 09/25/19 at 08:15; Stop 09/25/19 at 12:14; Status DC Potassium Acetate 40 meq/Magnesium Sulfate 5 meq/ Multivitamins 10 ml/Chromium/ Copper/Manganese/ Seleni/Zn 1 ml/ Insulin Human Regular 30 unit/ Total Parenteral Nutrition/Amino Acids/Dextrose/ Fat Emulsion Intravenous 1,920 ml @ 80 mls/hr TPN CONT IV Last administered on 09/25/19at 22:23; Start 09/25/19 at 22:00; Stop 09/26/19 at 21:59; Status DC Meropenem 1 gm/ Sodium Chloride 100 ml @ 200 mls/hr Q8HRS IV ; Start 09/25/19 at 14:00; Status Cancel Meropenem 1 gm/ Sodium Chloride 100 ml @ 200 mls/hr Q8HRS IV Last administered on 09/25/19at 11:04; Start 09/25/19 at 10:00; Stop 09/25/19 at 13:00; Status DC Meropenem 1 gm/ Sodium Chloride 100 ml @ 200 mls/hr Q12HR IV Last administered on 10/13/19at 08:27; Start 09/25/19 at 21:00; Stop 10/13/19 at 08:56; Status DC Sodium Chloride 1,000 ml @ 1,000 mls/hr 1X ONCE IV Last administered on 09/25/19at 11:06; Start 09/25/19 at 10:45; Stop 09/25/19 at 11:44; Status DC Micafungin Sodium 100 mg/Dextrose 100 ml @ 100 mls/hr Q24H IV Last administered on 10/12/19at 12:34; Start 09/25/19 at 11:00; Stop 10/13/19 at 08:56; Status DC Daptomycin 410 mg/ Sodium Chloride 50 ml @ 100 mls/hr Q24H IV Last administered on 09/27/19at 13:33; Start 09/25/19 at 14:00; Stop 09/28/19 at 08:30; Status DC Midazolam HCl (Versed) 2 mg STK-MED ONCE .ROUTE ; Start 09/25/19 at 14:47; Stop 09/25/19 at 14:48; Status DC Fentanyl Citrate (Fentanyl 2ml Vial) 100 mcg STK-MED ONCE .ROUTE ; Start 09/25/19 at 14:47; Stop 09/25/19 at 14:48; Status DC Flumazenil (Romazicon) 0.5 mg STK-MED ONCE IV ; Start 09/25/19 at 14:48; Stop 09/25/19 at 14:48; Status DC Naloxone HCl (Narcan) 0.4 mg STK-MED ONCE .ROUTE ; Start 09/25/19 at 14:48; Stop 09/25/19 at 14:48; Status DC Lidocaine HCl (Lidocaine 1% 20ml Vial) 20 ml STK-MED ONCE .ROUTE ; Start 09/25/19 at 14:48; Stop 09/25/19 at 14:48; Status DC Midazolam HCl (Versed) 2 mg 1X ONCE IV Last administered on 09/25/19at 15:28; Start 09/25/19 at 15:00; Stop 09/25/19 at 15:01; Status DC Fentanyl Citrate (Fentanyl 2ml Vial) 100 mcg 1X ONCE IV Last administered on 09/25/19at 15:28; Start 09/25/19 at 15:00; Stop 09/25/19 at 15:01; Status DC Lidocaine HCl (Lidocaine 1% 20ml Vial) 20 ml 1X ONCE INJ Last administered on 09/25/19at 15:30; Start 09/25/19 at 15:00; Stop 09/25/19 at 15:01; Status DC Sodium Chloride 1,000 ml @ 100 mls/hr Q10H IV Last administered on 10/04/19at 07:30; Start 09/25/19 at 20:00; Stop 10/04/19 at 11:26; Status DC Sodium Bicarbonate (Sodium Bicarb Adult 8.4% Syr) 50 meq 1X ONCE IV Last administered on 09/25/19at 21:47; Start 09/25/19 at 22:00; Stop 09/25/19 at 22:01; Status DC Potassium Acetate 40 meq/Magnesium Sulfate 5 meq/ Multivitamins 10 ml/Chromium/ Copper/Manganese/ Seleni/Zn 1 ml/ Insulin Human Regular 30 unit/ Total Parenteral Nutrition/Amino Acids/Dextrose/ Fat Emulsion Intravenous 1,920 ml @ 80 mls/hr TPN CONT IV Last administered on 09/26/19at 22:28; Start 09/26/19 at 22:00; Stop 09/27/19 at 21:59; Status DC Sodium Chloride 500 ml @ 500 mls/hr 1X ONCE IV Last administered on 09/27/19at 06:39; Start 09/27/19 at 06:45; Stop 09/27/19 at 07:44; Status DC Potassium Acetate 40 meq/Magnesium Sulfate 5 meq/ Multivitamins 10 ml/Chromium/ Copper/Manganese/ Seleni/Zn 1 ml/ Insulin Human Regular 30 unit/ Total Parenteral Nutrition/Amino Acids/Dextrose/ Fat Emulsion Intravenous 1,920 ml @ 80 mls/hr TPN CONT IV Last administered on 09/27/19at 22:03; Start 09/27/19 at 22:00; Stop 09/28/19 at 21:59; Status DC Metoprolol Tartrate (Lopressor Vial) 5 mg PRN Q6HRS PRN IVP HYPERTENSION Last administered on 11/29/19at 10:02; Start 09/28/19 at 09:00 Potassium Acetate 40 meq/Magnesium Sulfate 5 meq/ Multivitamins 10 ml/Chromium/ Copper/Manganese/ Seleni/Zn 1 ml/ Insulin Human Regular 30 unit/ Total Parenteral Nutrition/Amino Acids/Dextrose/ Fat Emulsion Intravenous 1,920 ml @ 80 mls/hr TPN CONT IV Last administered on 09/28/19at 21:26; Start 09/28/19 at 22:00; Stop 09/29/19 at 21:59; Status DC Potassium Acetate 40 meq/Magnesium Sulfate 5 meq/ Multivitamins 10 ml/Chromium/ Copper/Manganese/ Seleni/Zn 1 ml/ Insulin Human Regular 30 unit/ Total Parenteral Nutrition/Amino Acids/Dextrose/ Fat Emulsion Intravenous 1,920 ml @ 80 mls/hr TPN CONT IV Last administered on 09/29/19at 23:23; Start 09/29/19 at 22:00; Stop 09/30/19 at 21:59; Status DC Potassium Acetate 40 meq/Magnesium Sulfate 5 meq/ Multivitamins 10 ml/Chromium/ Copper/Manganese/ Seleni/Zn 1 ml/ Insulin Human Regular 30 unit/ Total Parenteral Nutrition/Amino Acids/Dextrose/ Fat Emulsion Intravenous 1,920 ml @ 80 mls/hr TPN CONT IV Last administered on 09/30/19at 21:35; Start 09/30/19 at 22:00; Stop 10/01/19 at 21:59; Status DC Furosemide (Lasix) 20 mg 1X ONCE IVP Last administered on 10/01/19at 06:26; Start 10/01/19 at 06:15; Stop 10/01/19 at 06:16; Status DC Methylprednisolone Sodium Succinate (SOLU-Medrol 125MG VIAL) 125 mg 1X ONCE IV Last administered on 10/01/19at 06:26; Start 10/01/19 at 06:15; Stop 10/01/19 at 06:16; Status DC Albuterol/ Ipratropium (Duoneb) 3 ml Q4HRS NEB Last administered on 12/05/19at 12:21; Start 10/01/19 at 08:00 Fentanyl Citrate 30 ml @ 0 mls/hr CONT PRN IV SEE PROTOCOL Last administered on 10/22/19at 08:03; Start 10/01/19 at 06:00; Stop 10/22/19 at 12:42; Status DC Propofol 100 ml @ 0 mls/hr CONT PRN IV SEE PROTOCOL Last administered on 10/08/19at 23:50; Start 10/01/19 at 06:00; Stop 11/21/19 at 09:45; Status DC Fentanyl Citrate (Fentanyl 2ml Vial) 25 mcg PRN Q1HR PRN IV SEE COMMENTS Last administered on 11/19/19at 23:56; Start 10/01/19 at 06:00; Stop 11/21/19 at 09:45; Status DC Fentanyl Citrate (Fentanyl 2ml Vial) 50 mcg PRN Q1HR PRN IV SEE COMMENTS Last administered on 11/21/19at 09:39; Start 10/01/19 at 06:00; Stop 11/21/19 at 09:45; Status DC Chlorhexidine Gluconate (Peridex) 15 ml BID MM ; Start 10/01/19 at 09:00; Stop 10/01/19 at 07:58; Status DC Potassium Acetate 40 meq/Magnesium Sulfate 5 meq/ Multivitamins 10 ml/Chromium/ Copper/Manganese/ Seleni/Zn 1 ml/ Insulin Human Regular 30 unit/ Total Parenteral Nutrition/Amino Acids/Dextrose/ Fat Emulsion Intravenous 1,920 ml @ 80 mls/hr TPN CONT IV Last administered on 10/01/19at 21:19; Start 10/01/19 at 22:00; Stop 10/02/19 at 21:59; Status DC Acetylcysteine (Mucomyst 20% Resp Treatment) 600 mg BID NEB Last administered on 10/07/19at 09:33; Start 10/01/19 at 21:00; Stop 10/07/19 at 10:39; Status DC Magnesium Sulfate 100 ml @ 25 mls/hr 1X ONCE IV Last administered on 10/01/19at 15:48; Start 10/01/19 at 15:45; Stop 10/01/19 at 19:44; Status DC Potassium Acetate 40 meq/Magnesium Sulfate 5 meq/ Multivitamins 10 ml/Chromium/ Copper/Manganese/ Seleni/Zn 1 ml/ Insulin Human Regular 30 unit/ Total Parenteral Nutrition/Amino Acids/Dextrose/ Fat Emulsion Intravenous 1,920 ml @ 80 mls/hr TPN CONT IV Last administered on 10/02/19at 21:35; Start 10/02/19 at 22:00; Stop 10/03/19 at 21:59; Status DC Potassium Chloride/Water 100 ml @ 100 mls/hr Q1H IV Last administered on 10/03/19at 08:31; Start 10/03/19 at 07:00; Stop 10/03/19 at 08:59; Status DC Potassium Acetate 40 meq/Magnesium Sulfate 5 meq/ Multivitamins 10 ml/Chromium/ Copper/Manganese/ Seleni/Zn 1 ml/ Insulin Human Regular 30 unit/ Total Parenteral Nutrition/Amino Acids/Dextrose/ Fat Emulsion Intravenous 1,920 ml @ 80 mls/hr TPN CONT IV Last administered on 10/03/19at 21:54; Start 10/03/19 at 22:00; Stop 10/04/19 at 19:34; Status DC Lidocaine HCl (Buffered Lidocaine 1%) 3 ml STK-MED ONCE .ROUTE ; Start 10/03/19 at 12:14; Stop 10/03/19 at 12:14; Status DC Lidocaine HCl (Buffered Lidocaine 1%) 3 ml 1X ONCE IJ Last administered on 10/03/19at 13:11; Start 10/03/19 at 13:00; Stop 10/03/19 at 13:01; Status DC Magnesium Sulfate 50 ml @ 25 mls/hr 1X ONCE IV ; Start 10/04/19 at 08:15; Stop 10/04/19 at 10:14; Status DC Potassium Acetate 40 meq/Magnesium Sulfate 10 meq/ Multivitamins 10 ml/Chromium/ Copper/Manganese/ Seleni/Zn 1 ml/ Insulin Human Regular 20 unit/ Total Parenteral Nutrition/Amino Acids/Dextrose/ Fat Emulsion Intravenous 1,920 ml @ 80 mls/hr TPN CONT IV Last administered on 10/04/19at 21:32; Start 10/04/19 at 22:00; Stop 10/05/19 at 21:59; Status DC Potassium Chloride/Water 100 ml @ 100 mls/hr Q1H IV Last administered on 10/05/19at 09:12; Start 10/05/19 at 08:00; Stop 10/05/19 at 09:59; Status DC Alteplase, Recombinant (Cathflo For Central Catheter Clearance) 4 mg 1X ONCE INT CAT ; Start 10/05/19 at 09:15; Stop 10/05/19 at 09:16; Status UNV Alteplase, Recombinant (Cathflo For Central Catheter Clearance) 4 mg 1X ONCE INT CAT ; Start 10/05/19 at 09:15; Stop 10/05/19 at 09:16; Status UNV Alteplase, Recombinant (Cathflo For Central Catheter Clearance) 4 mg 1X ONCE INT CAT ; Start 10/05/19 at 09:15; Stop 10/05/19 at 09:16; Status UNV Alteplase, Recombinant 4 mg/ Sodium Chloride 20 ml @ 20 mls/hr 1X ONCE IV Last administered on 10/05/19at 10:10; Start 10/05/19 at 10:00; Stop 10/05/19 at 10:59; Status DC Alteplase, Recombinant 4 mg/ Sodium Chloride 20 ml @ 20 mls/hr 1X ONCE IV Last administered on 10/05/19at 10:09; Start 10/05/19 at 10:00; Stop 10/05/19 at 10:59; Status DC Alteplase, Recombinant 4 mg/ Sodium Chloride 20 ml @ 20 mls/hr 1X ONCE IV Last administered on 10/05/19at 10:09; Start 10/05/19 at 10:00; Stop 10/05/19 at 10:59; Status DC Potassium Acetate 60 meq/Magnesium Sulfate 10 meq/ Multivitamins 10 ml/Chromium/ Copper/Manganese/ Seleni/Zn 1 ml/ Insulin Human Regular 20 unit/ Total Parenter al Nutrition/Amino Acids/Dextrose/ Fat Emulsion Intravenous 1,920 ml @ 80 mls/hr TPN CONT IV Last administered on 10/05/19at 21:55; Start 10/05/19 at 22:00; Stop 10/06/19 at 21:59; Status DC Albumin Human 500 ml @ 125 mls/hr 1X ONCE IV Last administered on 10/06/19at 12:01; Start 10/06/19 at 11:15; Stop 10/06/19 at 15:14; Status DC Sodium Chloride 500 ml @ 500 mls/hr 1X ONCE IV Last administered on 10/06/19at 13:50; Start 10/06/19 at 11:15; Stop 10/06/19 at 12:14; Status DC Potassium Acetate 60 meq/Magnesium Sulfate 14 meq/ Multivitamins 10 ml/Chromium/ Copper/Manganese/ Seleni/Zn 1 ml/ Insulin Human Regular 20 unit/ Total Parenteral Nutrition/Amino Acids/Dextrose/ Fat Emulsion Intravenous 1,920 ml @ 80 mls/hr TPN CONT IV Last administered on 10/06/19at 22:26; Start 10/06/19 at 22:00; Stop 10/07/19 at 21:59; Status DC Ciprofloxacin/ Dextrose 200 ml @ 200 mls/hr Q12HR IV Last administered on 10/13/19at 08:27; Start 10/06/19 at 21:00; Stop 10/13/19 at 08:56; Status DC Albumin Human 250 ml @ 62.5 mls/hr 1X ONCE IV Last administered on 10/07/19at 11:09; Start 10/07/19 at 11:00; Stop 10/07/19 at 14:59; Status DC Furosemide (Lasix) 20 mg 1X ONCE IVP Last administered on 10/07/19at 14:52; Start 10/07/19 at 10:45; Stop 10/07/19 at 10:49; Status DC Potassium Acetate 60 meq/Magnesium Sulfate 14 meq/ Multivitamins 10 ml/Chromium/ Copper/Manganese/ Seleni/Zn 1 ml/ Insulin Human Regular 15 unit/ Total Parenteral Nutrition/Amino Acids/Dextrose/ Fat Emulsion Intravenous 1,920 ml @ 80 mls/hr TPN CONT IV Last administered on 10/07/19at 22:08; Start 10/07/19 at 22:00; Stop 10/08/19 at 21:59; Status DC Potassium Acetate 60 meq/Magnesium Sulfate 14 meq/ Multivitamins 10 ml/Chromium/ Copper/Manganese/ Seleni/Zn 1 ml/ Insulin Human Regular 15 unit/ Total Janett ral Nutrition/Amino Acids/Dextrose/ Fat Emulsion Intravenous 1,920 ml @ 80 mls/hr TPN CONT IV Last administered on 10/08/19at 22:12; Start 10/08/19 at 22:00; Stop 10/09/19 at 21:59; Status DC Potassium Acetate 60 meq/Magnesium Sulfate 14 meq/ Multivitamins 10 ml/Chromium/ Copper/Manganese/ Seleni/Zn 1 ml/ Insulin Human Regular 15 unit/ Total Parenteral Nutrition/Amino Acids/Dextrose/ Fat Emulsion Intravenous 1,920 ml @ 80 mls/hr TPN CONT IV Last administered on 10/09/19at 22:22; Start 10/09/19 at 22:00; Stop 10/10/19 at 21:59; Status DC Furosemide (Lasix) 20 mg 1X ONCE IVP Last administered on 10/10/19at 11:07; Start 10/10/19 at 10:30; Stop 10/10/19 at 10:34; Status DC Potassium Acetate 60 meq/Magnesium Sulfate 14 meq/ Multivitamins 10 ml/Chromium/ Copper/Manganese/ Seleni/Zn 1 ml/ Insulin Human Regular 15 unit/ Sodium Chloride 20 meq/Total Parenteral Nutrition/Amino Acids/Dextrose/ Fat Emulsion Intravenous 1,920 ml @ 80 mls/hr TPN CONT IV Last administered on 10/10/19at 21:54; Start 10/10/19 at 22:00; Stop 10/11/19 at 21:59; Status DC Potassium Acetate 30 meq/Magnesium Sulfate 14 meq/ Multivitamins 10 ml/Chromium/ Copper/Manganese/ Seleni/Zn 1 ml/ Insulin Human Regular 15 unit/ Sodium Chloride 20 meq/Potassium Chloride 30 meq/ Total Parenteral Nutrition/Amino Acids/Dextrose/ Fat Emulsion Intravenous 1,920 ml @ 80 mls/hr TPN CONT IV Last administered on 10/11/19at 21:46; Start 10/11/19 at 22:00; Stop 10/12/19 at 21:59; Status DC Sodium Chloride 80 meq/Potassium Chloride 30 meq/ Potassium Acetate 30 meq/Magnesium Sulfate 14 meq/ Multivitamins 10 ml/Chromium/ Copper/Manganese/ Seleni/Zn 1 ml/ Insulin Human Regular 15 unit/ Total Parenteral Nutrition/Amino Acids/Dextrose/ Fat Emulsion Intravenous 1,920 ml @ 80 mls/hr TPN CONT IV Last administered on 10/12/19at 22:33; Start 10/12/19 at 22:00; Stop 10/13/19 at 21:59; Status DC Furosemide (Lasix) 40 mg 1X ONCE IVP Last administered on 10/12/19at 16:27; Start 10/12/19 at 15:30; Stop 10/12/19 at 15:33; Status DC Albumin Human 250 ml @ 62.5 mls/hr 1X ONCE IV Last administered on 10/12/19at 16:27; Start 10/12/19 at 15:30; Stop 10/12/19 at 19:29; Status DC Sodium Chloride 80 meq/Potassium Chloride 30 meq/ Potassium Acetate 30 meq/Magnesium Sulfate 14 meq/ Multivitamins 10 ml/Chromium/ Copper/Manganese/ Seleni/Zn 1 ml/ Insulin Human Regular 15 unit/ Total Parenteral Nutrition/Amino Acids/Dextrose/ Fat Emulsion Intravenous 1,920 ml @ 80 mls/hr TPN CONT IV Last administered on 10/13/19at 22:25; Start 10/13/19 at 22:00; Stop 10/14/19 at 21:59; Status DC Sodium Chloride 80 meq/Potassium Chloride 30 meq/ Potassium Acetate 30 meq/Magnesium Sulfate 14 meq/ Multivitamins 10 ml/Chromium/ Copper/Manganese/ Seleni/Zn 1 ml/ Insulin Human Regular 15 unit/ Total Parenteral Nutrition/Amino Acids/Dextrose/ Fat Emulsion Intravenous 1,920 ml @ 80 mls/hr TPN CONT IV Last administered on 10/14/19at 21:32; Start 10/14/19 at 22:00; Stop 10/15/19 at 21:59; Status DC Sodium Chloride 80 meq/Potassium Chloride 30 meq/ Potassium Acetate 30 meq/Magnesium Sulfate 14 meq/ Multivitamins 10 ml/Chromium/ Copper/Manganese/ Seleni/Zn 1 ml/ Insulin Human Regular 15 unit/ Total Parenteral Nutrition/Amino Acids/Dextrose/ Fat Emulsion Intravenous 1,920 ml @ 80 mls/hr TPN CONT IV Last administered on 10/15/19at 21:53; Start 10/15/19 at 22:00; Stop 10/16/19 at 21:59; Status DC Acetylcysteine (Mucomyst 20% Resp Treatment) 600 mg RTBID NEB Last administered on 12/05/19at 08:00; Start 10/15/19 at 12:00 Sodium Chloride 80 meq/Potassium Chloride 30 meq/ Potassium Acetate 30 meq/Magnesium Sulfate 14 meq/ Multivitamins 10 ml/Chromium/ Copper/Manganese/ Seleni/Zn 1 ml/ Insulin Human Regular 15 unit/ Total Parenteral Nutrition/Amino Acids/Dextrose/ Fat Emulsion Intravenous 1,920 ml @ 80 mls/hr TPN CONT IV Last administered on 10/16/19at 22:06; Start 10/16/19 at 22:00; Stop 10/17/19 at 21:59; Status DC Meropenem 500 mg/ Sodium Chloride 50 ml @ 100 mls/hr Q6HRS IV Last adm inistered on 11/08/19at 06:15; Start 10/16/19 at 18:00; Stop 11/08/19 at 08:23; Status DC Daptomycin 500 mg/ Sodium Chloride 50 ml @ 100 mls/hr Q24H IV Last administered on 10/24/19at 21:47; Start 10/16/19 at 19:00; Stop 10/25/19 at 08:13; Status DC Sodium Chloride 80 meq/Potassium Chloride 30 meq/ Potassium Acetate 30 meq/Magnesium Sulfate 14 meq/ Multivitamins 10 ml/Chromium/ Copper/Manganese/ Seleni/Zn 1 ml/ Insulin Human Regular 15 unit/ Total Parenteral Nutrition/Amino Acids/Dextrose/ Fat Emulsion Intravenous 1,920 ml @ 80 mls/hr TPN CONT IV Last administered on 10/17/19at 22:09; Start 10/17/19 at 22:00; Stop 10/18/19 at 21:59; Status DC Heparin Sodium (Porcine) 1000 unit/Sodium Chloride 1,001 ml @ 1,001 mls/hr 1X ONCE IRR ; Start 10/18/19 at 06:00; Stop 10/18/19 at 06:59; Status DC Propofol (Diprivan) 200 mg STK-MED ONCE IV ; Start 10/18/19 at 07:44; Stop 10/18/19 at 07:44; Status DC Lidocaine HCl (Lidocaine Pf 2% Vial) 5 ml STK-MED ONCE .ROUTE ; Start 10/18/19 at 07:44; Stop 10/18/19 at 07:44; Status DC Fentanyl Citrate (Fentanyl 2ml Vial) 100 mcg STK-MED ONCE .ROUTE ; Start 10/18/19 at 07:44; Stop 10/18/19 at 07:44; Status DC Rocuronium [place] (Zemuron) 100 mg STK-MED ONCE .ROUTE ; Start 10/18/19 at 07:44; Stop 10/18/19 at 07:44; Status DC Micafungin Sodium 100 mg/Dextrose 100 ml @ 100 mls/hr Q24H IV Last administered on 11/22/19at 09:30; Start 10/18/19 at 08:30; Stop 11/23/19 at 08:20; Status DC Bupivacaine HCl/ Epinephrine Bitart (Sensorcain-Epi 0.5%-1:280996 Mpf) 30 ml STK-MED ONCE .ROUTE ; Start 10/18/19 at 08:34; Stop 10/18/19 at 08:35; Status DC Iohexol (Omnipaque 300 Mg/ml) 50 ml STK-MED ONCE .ROUTE Last administered on 10/18/19at 13:30; Start 10/18/19 at 08:35; Stop 10/18/19 at 08:35; Status DC Sodium Chloride 80 meq/Potassium Chloride 30 meq/ Potassium Acetate 30 meq/Magnesium Sulfate 14 meq/ Multivitamins 10 ml/Chromium/ Copper/Manganese/ Seleni/Zn 1 ml/ Insulin Human Regular 15 unit/ Total Parenteral Nutrition/Amino Acids/Dextrose/ Fat Emulsion Intravenous 1,920 ml @ 80 mls/hr TPN CONT IV Last administered on 10/19/19at 01:22; Start 10/18/19 at 22:00; Stop 10/19/19 at 21:59; Status DC Phenylephrine HCl (Brayden-Synephrine Inj) 10 mg STK-MED ONCE .ROUTE ; Start 10/18/19 at 10:15; Stop 10/18/19 at 10:15; Status DC Desflurane (Suprane) 90 ml STK-MED ONCE IH ; Start 10/18/19 at 10:18; Stop 10/18/19 at 10:19; Status DC Albumin Human 500 ml @ As Directed STK-MED ONCE IV ; Start 10/18/19 at 11:06; Stop 10/18/19 at 11:06; Status DC Vasopressin (Vasostrict) 20 unit STK-MED ONCE .ROUTE ; Start 10/18/19 at 12:23; Stop 10/18/19 at 12:23; Status DC Phenylephrine HCl (Brayden-Synephrine Inj) 10 mg STK-MED ONCE .ROUTE ; Start 10/18/19 at 13:33; Stop 10/18/19 at 13:33; Status DC Phenylephrine HCl (Brayden-Synephrine Inj) 10 mg STK-MED ONCE .ROUTE ; Start 10/18/19 at 13:33; Stop 10/18/19 at 13:33; Status DC Ondansetron HCl (Zofran) 4 mg STK-MED ONCE .ROUTE ; Start 10/18/19 at 13:33; Stop 10/18/19 at 13:33; Status DC Enoxaparin Sodium (Lovenox 40mg Syringe) 40 mg Q24H SQ Last administered on 12/04/19at 09:31; Start 10/19/19 at 08:00; Stop 12/05/19 at 17:07; Status DC Sodium Chloride (Normal Saline Flush) 3 ml QSHIFT PRN IV AFTER MEDS AND BLOOD DRAWS; Start 10/18/19 at 14:45; Stop 11/21/19 at 09:45; Status DC Naloxone HCl (Narcan) 0.4 mg PRN Q2MIN PRN IV SEE INSTRUCTIONS; Start 10/18/19 at 14:45; Stop 11/21/19 at 09:45; Status DC Sodium Chloride 1,000 ml @ 25 mls/hr Q24H IV Last administered on 11/20/19at 20:55; Start 10/18/19 at 14:33; Stop 11/21/19 at 09:45; Status DC Morphine Sulfate (Morphine Sulfate) 1 mg PRN Q1HR PRN IV PAIN Last administered on 11/12/19at 18:28; Start 10/18/19 at 14:45; Stop 11/21/19 at 09:45; Status DC Midazolam HCl 100 mg/Sodium Chloride 100 ml @ 1 mls/hr CONT PRN IV SEE I/O RECORD Last administered on 10/21/19at 18:48; Start 10/18/19 at 14:45; Stop 11/21/19 at 09:45; Status DC Phenylephrine HCl (PHENYLEPHRINE in 0.9% NACL PF) 1 mg STK-MED ONCE IV ; Start 10/18/19 at 14:44; Stop 10/18/19 at 14:45; Status DC Ephedrine Sulfate (ePHEDrine PF IN SALINE SYRINGE) 50 mg STK-MED ONCE IV ; S tart 10/18/19 at 14:45; Stop 10/18/19 at 14:45; Status DC Vasopressin 20 unit/Dextrose 101 ml @ 12 mls/hr CONT PRN IV SEE I/O RECORD Last administered on 10/25/19at 04:17; Start 10/18/19 at 15:30; Stop 11/21/19 at 09:45; Status DC Sodium Chloride 1,000 ml @ 1,000 mls/hr 1X ONCE IV Last administered on 10/18/19at 15:42; Start 10/18/19 at 15:45; Stop 10/18/19 at 16:44; Status DC Albumin Human 500 ml @ 125 mls/hr 1X ONCE IV ; Start 10/18/19 at 16:00; Stop 10/18/19 at 19:59; Status DC Albumin Human 500 ml @ 125 mls/hr PRN Q1HR PRN IV PER PROTOCOL; Start 10/18/19 at 15:45; Stop 11/21/19 at 09:52; Status DC Magnesium Sulfate 50 ml @ 25 mls/hr 1X ONCE IV Last administered on 10/18/19at 17:02; Start 10/18/19 at 16:30; Stop 10/18/19 at 18:29; Status DC Sodium Bicarbonate (Sodium Bicarb Adult 8.4% Syr) 50 meq STK-MED ONCE .ROUTE ; Start 10/18/19 at 16:20; Stop 10/18/19 at 16:20; Status DC Sodium Bicarbonate (Sodium Bicarb Adult 8.4% Syr) 100 meq 1X ONCE IV Last administered on 10/18/19at 17:07; Start 10/18/19 at 16:30; Stop 10/18/19 at 16:31; Status DC Sodium Bicarbonate 150 meq/Dextrose 1,150 ml @ 75 mls/hr 1X ONCE IV Last admi nistered on 10/18/19at 20:02; Start 10/18/19 at 16:30; Stop 10/19/19 at 07:49; Status DC Sodium Chloride 80 meq/Potassium Chloride 30 meq/ Potassium Acetate 30 meq/Magnesium Sulfate 14 meq/ Multivitamins 10 ml/Chromium/ Copper/Manganese/ Seleni/Zn 1 ml/ Insulin Human Regular 15 unit/ Total Parenteral Nutrition/Amino Acids/Dextrose/ Fat Emulsion Intravenous 1,920 ml @ 80 mls/hr TPN CONT IV Last administered on 10/19/19at 23:05; Start 10/19/19 at 22:00; Stop 10/20/19 at 21:59; Status DC Sodium Chloride 100 meq/Potassium Chloride 30 meq/ Potassium Acetate 30 meq/Magnesium Sulfate 12 meq/ Multivitamins 10 ml/Chromium/ Copper/Manganese/ S thien/Zn 1 ml/ Insulin Human Regular 15 unit/ Total Parenteral Nutrition/Amino Acids/Dextrose/ Fat Emulsion Intravenous 1,920 ml @ 80 mls/hr TPN CONT IV Last administered on 10/20/19at 21:52; Start 10/20/19 at 22:00; Stop 10/21/19 at 21:59; Status DC Sodium Chloride 100 meq/Potassium Chloride 30 meq/ Potassium Acetate 30 meq/Magnesium Sulfate 12 meq/ Multivitamins 10 ml/Chromium/ Copper/Manganese/ Seleni/Zn 1 ml/ Insulin Human Regular 15 unit/ Total Parenteral Nutrition/Amino Acids/Dextrose/ Fat Emulsion Intravenous 1,920 ml @ 80 mls/hr TPN CONT IV Last administered on 10/21/19at 21:46; Start 10/21/19 at 22:00; Stop 10/22/19 at 21:59; Status DC Sodium Chloride 100 meq/Potassium Chloride 30 meq/ Potassium Acetate 30 meq/Magnesium Sulfate 12 meq/ Multivitamins 10 ml/Chromium/ Copper/Manganese/ Seleni/Zn 1 ml/ Insulin Human Regular 15 unit/ Total Parenteral Nutrition/Amino Acids/Dextrose/ Fat Emulsion Intravenous 1,800 ml @ 75 mls/hr TPN CONT IV Last administered on 10/22/19at 22:04; Start 10/22/19 at 22:00; Stop 10/23/19 at 21:59; Status DC Fentanyl Citrate 55 ml @ 0 mls/hr CONT PRN IV SEE COMMENTS Last administered on 10/24/19at 23:55; Start 10/22/19 at 13:00; Stop 10/27/19 at 17:28; Status DC Sodium Chloride 100 meq/Potassium Chloride 30 meq/ Potassium Acetate 30 meq/Magnesium Sulfate 12 meq/ Multivitamins 10 ml/Chromium/ Copper/Manganese/ Seleni/Zn 1 ml/ Insulin Human Regular 15 unit/ Total Parenteral Nutrition/Amino Acids/Dextrose/ Fat Emulsion Intravenous 1,680 ml @ 70 mls/hr TPN CONT IV Last administered on 10/23/19at 21:23; Start 10/23/19 at 22:00; Stop 10/24/19 at 21:59; Status DC Sodium Chloride 110 meq/Potassium Chloride 30 meq/ Potassium Acetate 30 meq/Magnesium Sulfate 15 meq/ Multivitamins 10 ml/Chromium/ Copper/Manganese/ Seleni/Zn 1 ml/ Insulin Human Regular 15 unit/ Total Parenteral Nutrition/Amino Acids/Dextrose/ Fat Emulsion Intravenous 1,680 ml @ 70 mls/hr TPN CONT IV L ast administered on 10/24/19at 21:48; Start 10/24/19 at 22:00; Stop 10/25/19 at 21:59; Status DC Sodium Chloride 110 meq/Potassium Chloride 30 meq/ Potassium Acetate 30 meq/Magnesium Sulfate 15 meq/ Multivitamins 10 ml/Chromium/ Copper/Manganese/ Seleni/Zn 1 ml/ Insulin Human Regular 15 unit/ Total Parenteral Nutrition/Amino Acids/Dextrose/ Fat Emulsion Intravenous 1,680 ml @ 70 mls/hr TPN CONT IV Last administered on 10/25/19at 21:33; Start 10/25/19 at 22:00; Stop 10/26/19 at 21:59; Status DC Sodium Chloride 110 meq/Potassium Chloride 30 meq/ Potassium Acetate 30 meq/Magnesium Sulfate 15 meq/ Multivitamins 10 ml/Chromium/ Copper/Manganese/ Seleni/Zn 1 ml/ Insulin Human Regular 15 unit/ Total Parenteral Nutrition/Amino Acids/Dextrose/ Fat Emulsion Intravenous 1,680 ml @ 70 mls/hr TPN CONT IV Last administered on 10/26/19at 21:51; Start 10/26/19 at 22:00; Stop 10/27/19 at 21:59; Status DC Sodium Chloride 90 meq/Potassium Chloride 30 meq/ Potassium Acetate 30 meq/Magnesium Sulfate 15 meq/ Multivitamins 10 ml/Chromium/ Copper/Manganese/ Seleni/Zn 1 ml/ Insulin Human Regular 15 unit/ Total Parenteral Nutrition/Amino Acids/Dextrose/ Fat Emulsion Intravenous 1,680 ml @ 70 mls/hr TPN CONT IV Last administered on 10/27/19at 22:38; Start 10/27/19 at 22:00; Stop 10/28/19 at 21:59; Status DC Fentanyl Citrate 30 ml @ 0 mls/hr CONT PRN IV SEE I/O RECORD; Start 10/27/19 at 17:30; Stop 11/21/19 at 09:45; Status DC Fentanyl (Duragesic 12mcg/ Hr Patch) 1 patch Q3DAYS TD Last administered on 12/03/19at 08:38; Start 10/28/19 at 09:00; Stop 12/05/19 at 17:07; Status DC Sodium Chloride 90 meq/Potassium Chloride 30 meq/ Potassium Acetate 30 meq/Magnesium Sulfate 15 meq/ Multivitamins 10 ml/Chromium/ Copper/Manganese/ Seleni/Zn 1 ml/ Insulin Human Regular 15 unit/ Total Parenteral Nutrition/Amino Acids/Dextrose/ Fat Emulsion Intravenous 1,680 ml @ 70 mls/hr TPN CONT IV Last administered on 10/28/19at 21:59; Start 10/28/19 at 22:00; Stop 10/29/19 at 21:59; Status DC Sodium Chloride 90 meq/Potassium Chloride 30 meq/ Potassium Acetate 30 meq/Magnesium Sulfate 15 meq/ Multivitamins 10 ml/Chromium/ Copper/Manganese/ Seleni/Zn 1 ml/ Insulin Human Regular 15 unit/ Total Parenteral Nutrition/Amino Acids/Dextrose/ Fat Emulsion Intravenous 1,680 ml @ 70 mls/hr TPN CONT IV Last administered on 10/29/19at 21:35; Start 10/29/19 at 22:00; Stop 10/30/19 at 21:59; Status DC Vancomycin HCl (Vanco Per Pharmacy) 1 each PRN DAILY PRN MC SEE COMMENTS Last administered on 11/01/19at 02:46; Start 10/30/19 at 09:15; Stop 11/02/19 at 07:41; Status DC Ciprofloxacin/ Dextrose 200 ml @ 200 mls/hr Q12HR IV Last administered on 11/07/19at 21:02; Start 10/30/19 at 10:00; Stop 11/08/19 at 08:20; Status DC Vancomycin HCl 2 gm/Sodium Chloride 500 ml @ 250 mls/hr 1X ONCE IV Last administered on 10/30/19at 10:34; Start 10/30/19 at 10:00; Stop 10/30/19 at 11:59; Status DC Sodium Chloride 90 meq/Potassium Chloride 30 meq/ Potassium Acetate 30 meq/Magnesium Sulfate 15 meq/ Multivitamins 10 ml/Chromium/ Copper/Manganese/ Seleni/Zn 1 ml/ Insulin Human Regular 15 unit/ Total Parenteral Nutrition/Amino Acids/Dextrose/ Fat Emulsion Intravenous 1,680 ml @ 70 mls/hr TPN CONT IV Last administered on 10/30/19at 22:02; Start 10/30/19 at 22:00; Stop 10/31/19 at 21:59; Status DC Diphenhydramine HCl (Benadryl) 25 mg 1X ONCE IVP Last administered on 10/30/19at 14:26; Start 10/30/19 at 14:30; Stop 10/30/19 at 14:31; Status DC Vancomycin HCl 1.5 gm/Sodium Chloride 500 ml @ 250 mls/hr Q8H IV Last administered on 10/31/19at 03:08; Start 10/30/19 at 18:30; Stop 10/31/19 at 12:24; Status DC Vancomycin HCl (Vancomycin Trough Level) 1 each 1X ONCE MC Last administered on 10/31/19at 10:00; Start 10/31/19 at 10:00; Stop 10/31/19 at 10:01; Status DC Sodium Chloride 90 meq/Potassium Chloride 30 meq/ Potassium Acetate 30 meq/Magnesium Sulfate 15 meq/ Multivitamins 10 ml/Chromium/ Copper/Manganese/ Seleni/Zn 1 ml/ Insulin Human Regular 15 unit/ Total Parenteral Nutrition/Amino Acids/Dextrose/ Fat Emulsion Intravenous 1,680 ml @ 70 mls/hr TPN CONT IV Last administered on 10/31/19at 22:13; Start 10/31/19 at 22:00; Stop 11/01/19 at 21:59; Status DC Vancomycin HCl (Vancomycin Random Level) 1 each 1X ONCE MC Last administered on 11/01/19at 01:00; Start 11/01/19 at 01:00; Stop 11/01/19 at 01:01; Status DC Vancomycin HCl 1.5 gm/Sodium Chloride 500 ml @ 250 mls/hr Q12H IV Last administered on 11/01/19at 22:07; Start 11/01/19 at 10:00; Stop 11/02/19 at 07:41; Status DC Vancomycin HCl (Vancomycin Trough Level) 1 each 1X ONCE MC ; Start 11/02/19 at 09:30; Stop 11/02/19 at 09:31; Status Cancel Sodium Chloride 90 meq/Potassium Chloride 30 meq/ Potassium Acetate 30 meq/Magnesium Sulfate 15 meq/ Multivitamins 10 ml/Chromium/ Copper/Manganese/ Seleni/Zn 1 ml/ Insulin Human Regular 15 unit/ Total Parenteral Nutrition/Amino Acids/Dextrose/ Fat Emulsion Intravenous 1,680 ml @ 70 mls/hr TPN CONT IV Last administered on 11/01/19at 22:08; Start 11/01/19 at 22:00; Stop 11/02/19 at 21:59; Status DC Alteplase, Recombinant (Cathflo For Central Catheter Clearance) 1 mg 1X ONCE INT CAT Last administered on 11/01/19at 11:49; Start 11/01/19 at 11:00; Stop 11/01/19 at 11:01; Status DC Daptomycin 500 mg/ Sodium Chloride 50 ml @ 100 mls/hr Q24H IV Last administered on 11/11/19at 08:25; Start 11/02/19 at 09:00; Stop 11/11/19 at 08:38; Status DC Sodium Chloride 90 meq/Potassium Chloride 30 meq/ Potassium Acetate 30 meq/Magnesium Sulfate 15 meq/ Multivitamins 10 ml/Chromium/ Copper/Manganese/ Seleni/Zn 1 ml/ Insulin Human Regular 15 unit/ Total Parenteral Nutrition/Amino Acids/Dextrose/ Fat Emulsion Intravenous 1,680 ml @ 70 mls/hr TPN CONT IV Last administered on 11/02/19at 22:55; Start 11/02/19 at 22:00; Stop 11/03/19 at 21:59; Status DC Sodium Chloride 90 meq/Potassium Chloride 30 meq/ Potassium Acetate 30 meq/Magnesium Sulfate 15 meq/ Multivitamins 10 ml/Chromium/ Copper/Manganese/ Seleni/Zn 1 ml/ Insulin Human Regular 15 unit/ Total Parenteral Nutrition/Amino Acids/Dextrose/ Fat Emulsion Intravenous 1,680 ml @ 70 mls/hr TPN CONT IV Last administered on 11/03/19at 22:06; Start 11/03/19 at 22:00; Stop 11/04/19 at 21:59; Status DC Diphenhydramine HCl (Benadryl) 50 mg STK-MED ONCE .ROUTE ; Start 11/03/19 at 18:34; Stop 11/03/19 at 18:35; Status DC Diphenhydramine HCl (Benadryl) 25 mg 1X ONCE IM ; Start 11/03/19 at 18:45; Stop 11/03/19 at 18:46; Status DC Diphenhydramine HCl (Benadryl) 25 mg 1X ONCE IVP Last administered on 11/03/19at 18:56; Start 11/03/19 at 19:00; Stop 11/03/19 at 19:01; Status DC Alprazolam (Xanax) 0.5 mg PRN TID PRN PO ANXIETY / AGITATION Last administered on 11/10/19at 11:49; Start 11/04/19 at 08:00; Stop 11/10/19 at 15:54; Status DC Sodium Chloride 110 meq/Potassium Chloride 30 meq/ Potassium Acetate 30 meq/Ma gnesium Sulfate 15 meq/ Multivitamins 10 ml/Chromium/ Copper/Manganese/ Seleni/Zn 1 ml/ Insulin Human Regular 15 unit/ Total Parenteral Nutrition/Amino Acids/Dextrose/ Fat Emulsion Intravenous 1,680 ml @ 70 mls/hr TPN CONT IV Last administered on 11/04/19at 21:21; Start 11/04/19 at 22:00; Stop 11/05/19 at 21:59; Status DC Sodium Chloride 110 meq/Potassium Chloride 30 meq/ Potassium Acetate 30 meq/Magnesium Sulfate 15 meq/ Multivitamins 10 ml/Chromium/ Copper/Manganese/ Seleni/Zn 1 ml/ Insulin Human Regular 15 unit/ Total Parenteral Nutrition/Amino Acids/Dextrose/ Fat Emulsion Intravenous 1,680 ml @ 70 mls/hr TPN CONT IV Last administered on 11/05/19at 22:01; Start 11/05/19 at 22:00; Stop 11/06/19 at 21:59; Status DC Alteplase, Recombinant (Cathflo For Central Catheter Clearance) 1 mg 1X ONCE INT CAT Last administered on 11/06/19at 08:23; Start 11/06/19 at 08:15; Stop 11/06/19 at 08:16; Status DC Sodium Chloride 110 meq/Sodium Phosphate 10 mmol/ Potassium Chloride 30 meq/ Potassium Acetate 30 meq/Magnesium Sulfate 15 meq/ Multivitamins 10 ml/Chromium/ Copper/Manganese/ Seleni/Zn 1 ml/ Insulin Human Regular 15 unit/ Total Parent eral Nutrition/Amino Acids/Dextrose/ Fat Emulsion Intravenous 1,680 ml @ 70 mls/hr TPN CONT IV Last administered on 11/06/19at 22:03; Start 11/06/19 at 22:00; Stop 11/07/19 at 21:59; Status DC Sodium Chloride 120 meq/Sodium Phosphate 10 mmol/ Potassium Chloride 30 meq/ Potassium Acetate 30 meq/Magnesium Sulfate 15 meq/ Multivitamins 10 ml/Chromium/ Copper/Manganese/ Seleni/Zn 1 ml/ Insulin Human Regular 15 unit/ Total Parenteral Nutrition/Amino Acids/Dextrose/ Fat Emulsion Intravenous 1,680 ml @ 70 mls/hr TPN CONT IV Last administered on 11/07/19at 22:08; Start 11/07/19 at 22:00; Stop 11/08/19 at 21:59; Status DC Ceftazidime/ Avibactam 2.5 gm/ Sodium Chloride 100 ml @ 50 mls/hr Q8HRS IV Last administered on 11/09/19at 05:32; Start 11/08/19 at 14:00; Stop 11/09/19 at 07:48; Status DC Alteplase, Recombinant (Cathflo For Central Catheter Clearance) 1 mg 1X ONCE INT CAT Last administered on 11/08/19at 09:30; Start 11/08/19 at 09:30; Stop 11/08/19 at 09:31; Status DC Sodium Chloride 120 meq/Sodium Phosphate 10 mmol/ Potassium Chloride 30 meq/ Potassium Acetate 30 meq/Magnesium Sulfate 15 meq/ Multivitamins 10 ml/Chromium/ Copper/Manganese/ Seleni/Zn 1 ml/ Insulin Human Regular 15 unit/ Total Parenteral Nutrition/Amino Acids/Dextrose/ Fat Emulsion Intravenous 1,680 ml @ 70 mls/hr TPN CONT IV Last administered on 11/08/19at 22:11; Start 11/08/19 at 22:00; Stop 11/09/19 at 21:59; Status DC Iohexol (Omnipaque 300 Mg/ml) 75 ml 1X ONCE IV Last administered on 11/08/19at 11:30; Start 11/08/19 at 11:30; Stop 11/08/19 at 11:31; Status DC Info (CONTRAST GIVEN -- Rx MONITORING) 1 each PRN DAILY PRN MC SEE COMMENTS; Start 11/08/19 at 11:45; Stop 11/10/19 at 11:44; Status DC Alteplase, Recombinant (Cathflo For Central Catheter Clearance) 1 mg 1X ONCE INT CAT Last administered on 11/08/19at 12:17; Start 11/08/19 at 12:00; Stop 11/08/19 at 12:01; Status DC Cefepime HCl (Maxipime) 2 gm Q12HR IVP Last administered on 11/09/19at 20:53; Start 11/09/19 at 09:00; Stop 11/10/19 at 07:30; Status DC Sodium Chloride 120 meq/Sodium Phosphate 10 mmol/ Potassium Chloride 30 meq/ Potassium Acetate 30 meq/Magnesium Sulfate 15 meq/ Multivitamins 10 ml/Chromium/ Copper/Manganese/ Seleni/Zn 1 ml/ Insulin Human Regular 15 unit/ Total Parenteral Nutrition/Amino Acids/Dextrose/ Fat Emulsion Intravenous 1,680 ml @ 70 mls/hr TPN CONT IV Last administered on 11/09/19at 21:25; Start 11/09/19 at 22:00; Stop 11/10/19 at 21:59; Status DC Ceftazidime/ Avibactam 2.5 gm/ Sodium Chloride 250 ml @ 125 mls/hr Q8HRS IV Last administered on 11/23/19at 05:38; Start 11/10/19 at 08:00; Stop 11/23/19 at 08:20; Status DC Sodium Chloride 120 meq/Sodium Phosphate 10 mmol/ Potassium Chloride 30 meq/ Potassium Acetate 30 meq/Magnesium Sulfate 15 meq/ Multivitamins 10 ml/Chromium/ Copper/Manganese/ Seleni/Zn 1 ml/ Insulin Human Regular 15 unit/ Total Parenteral Nutrition/Amino Acids/Dextrose/ Fat Emulsion Intravenous 1,680 ml @ 70 mls/hr TPN CONT IV Last administered on 11/10/19at 22:35; Start 11/10/19 at 22:00; Stop 11/11/19 at 21:59; Status DC Alprazolam (Xanax) 0.5 mg PRN QID PRN PO ANXIETY / AGITATION Last administered on 12/02/19at 08:41; Start 11/10/19 at 16:00 Acetaminophen/ Hydrocodone Bitart (Lortab 5/325) 1 tab PRN Q4HRS PRN PO PAIN Last administered on 12/03/19at 14:27; Start 11/10/19 at 16:00 Sodium Chloride 120 meq/Sodium Phosphate 10 mmol/ Potassium Chloride 30 meq/ Potassium Acetate 30 meq/Magnesium Sulfate 15 meq/ Multivitamins 10 ml/Chromium/ Copper/Manganese/ Seleni/Zn 1 ml/ Insulin Human Regular 15 unit/ Total Parenteral Nutrition/Amino Acids/Dextrose/ Fat Emulsion Intravenous 1,680 ml @ 70 mls/hr TPN CONT IV Last administered on 11/11/19at 21:50; Start 11/11/19 at 22:00; Stop 11/12/19 at 21:59; Status DC Sodium Chloride 120 meq/Sodium Phosphate 10 mmol/ Potassium Chloride 30 meq/ Potassium Acetate 30 meq/Magnesium Sulfate 15 meq/ Multivitamins 10 ml/Chromium/ Copper/Manganese/ Seleni/Zn 1 ml/ Insulin Human Regular 15 unit/ Total Parenteral Nutrition/Amino Acids/Dextrose/ Fat Emulsion Intravenous 1,680 ml @ 70 mls/hr TPN CONT IV Last administered on 11/12/19at 22:14; Start 11/12/19 at 22:00; Stop 11/13/19 at 21:59; Status DC Daptomycin 500 mg/ Sodium Chloride 50 ml @ 100 mls/hr Q24H IV Last administered on 11/22/19at 09:20; Start 11/13/19 at 09:00; Stop 11/23/19 at 08:20; Status DC Sodium Chloride 120 meq/Sodium Phosphate 10 mmol/ Potassium Chloride 30 meq/ Potassium Acetate 30 meq/Magnesium Sulfate 15 meq/ Multivitamins 10 ml/Chromium/ Copper/Manganese/ Seleni/Zn 1 ml/ Insulin Human Regular 15 unit/ Total Parenteral Nutrition/Amino Acids/Dextrose/ Fat Emulsion Intravenous 1,680 ml @ 70 mls/hr TPN CONT IV ; Start 11/13/19 at 22:00; Stop 11/14/19 at 21:59; Stat us Cancel Amino Acids/ Glycerin/ Electrolytes 1,000 ml @ 80 mls/hr [id number] IV Last administered on 11/19/19at 18:10; Start 11/13/19 at 10:15; Stop 11/20/19 at 07:07; Status DC Iohexol (Omnipaque 300 Mg/ml) 50 ml 1X ONCE IJ ; Start 11/15/19 at 11:00; Stop 11/15/19 at 11:01; Status DC Sodium Chloride 500 ml @ 500 mls/hr 1X ONCE IV Last administered on 11/15/19at 18:30; Start 11/15/19 at 18:30; Stop 11/15/19 at 19:29; Status DC Lidocaine HCl (Buffered Lidocaine 1%) 3 ml 1X ONCE INJ ; Start 11/17/19 at 12 :15; Stop 11/17/19 at 12:17; Status DC Fentanyl Citrate (Fentanyl 2ml Vial) 25 mcg PRN Q6HRS PRN IVP SEE INSTUCTIONS Last administered on 12/05/19at 11:51; Start 11/21/19 at 10:00 Sodium Chloride 1,000 ml @ 125 mls/hr Q8H IV Last administered on 11/21/19at 23:16; Start 11/21/19 at 23:21; Stop 11/22/19 at 09:23; Status DC Sodium Chloride 1,000 ml @ 350 mls/hr 1X ONCE IV Last administered on 11/21/19at 20:29; Start 11/21/19 at 20:30; Stop 11/21/19 at 23:21; Status DC Vitamin A/Vitamin D (Vitamin A & D Ointment) 1 ramu PRN Q1HR PRN TP SKIN PROTECTION Last administered on 12/01/19at 08:36; Start 11/22/19 at 09:15; Stop 12/05/19 at 17:07; Status DC Iohexol (Omnipaque 240 Mg/ml) 50 ml STK-MED ONCE .ROUTE ; Start 11/22/19 at 14:18; Stop 11/22/19 at 14:19; Status DC Lidocaine HCl (Buffered Lidocaine 1%) 3 ml STK-MED ONCE .ROUTE ; Start 11/22/19 at 14:19; Stop 11/22/19 at 14:19; Status DC Fentanyl Citrate (Fentanyl 2ml Vial) 100 mcg STK-MED ONCE .ROUTE ; Start 11/22/19 at 15:03; Stop 11/22/19 at 15:03; Status DC Lidocaine HCl (Buffered Lidocaine 1%) 5 ml 1X ONCE INJ Last administered on 11/22/19at 15:00; Start 11/22/19 at 15:45; Stop 11/22/19 at 15:46; Status DC Iohexol (Omnipaque 240 Mg/ml) 10 ml 1X ONCE IJ Last administered on 11/22/19at 15:00; Start 11/22/19 at 15:45; Stop 11/22/19 at 15:46; Status DC Multivitamins/ Minerals Therapeutic (Centrum Multivit-Mineral Liq) 5 ml DAILY PEG Last administered on 12/04/19at 09:30; Start 11/23/19 at 09:00; Stop 12/05/19 at 17:07; Status DC Alteplase, Recombinant 5 mg/ Sodium Chloride 30 ml @ 30 mls/hr 1X PRN IV SEE COMMENTS; Start 11/23/19 at 06:45; Status UNV Alteplase, Recombinant (Cathflo For Central Catheter Clearance) 1 mg 1X ONCE INT CAT Last administered on 11/23/19at 09:30; Start 11/23/19 at 07:00; Stop 11/23/19 at 07:01; Status DC Sodium Chloride 1,000 ml @ 125 mls/hr 1X ONCE IV Last administered on 11/23/19at 16:12; Start 11/23/19 at 14:30; Stop 11/23/19 at 22:29; Status DC Furosemide (Lasix) 40 mg 1X ONCE IVP Last administered on 11/23/19at 16:17; Start 11/23/19 at 14:30; Stop 11/23/19 at 14:33; Status DC Furosemide (Lasix) 40 mg [id number] IVP Last administered on 11/24/19at 13:51; Start 11/24/19 at 09:00; Stop 11/24/19 at 14:01; Status DC Sodium Chloride 1,000 ml @ 125 mls/hr 1X ONCE IV Last administered on 11/24/19at 08:20; Start 11/24/19 at 07:45; Stop 11/24/19 at 15:44; Status DC Calcitonin [place] (Miacalcin) 400 unit BID SQ Last administered on 11/24/19at 18:18; Start 11/24/19 at 18:00; Stop 11/25/19 at 15:56; Status DC Zoledronic Acid 100 ml @ 400 mls/hr 1X ONCE IV Last administered on 11/25/19at 13:04; Start 11/25/19 at 12:00; Stop 11/25/19 at 12:14; Status DC Metoprolol Tartrate (Lopressor Vial) 5 mg 1X ONCE IVP Last administered on 11/27/19at 10:54; Start 11/27/19 at 10:45; Stop 11/27/19 at 10:46; Status DC Cefepime HCl (Maxipime) 2 gm Q12HR IVP Last administered on 12/04/19at 09:32; Start 11/28/19 at 10:00; Stop 12/04/19 at 14:48; Status DC Metronidazole 100 ml @ 100 mls/hr Q12HR IV Last administered on 12/04/19at 09:31; Start 11/28/19 at 10:00; Stop 12/04/19 at 14:48; Status DC Sodium Chloride 1,000 ml @ 75 mls/hr [id number] IV Last administered on 11/29/19at 09:55; Start 11/28/19 at 18:45; Stop 11/30/19 at 11:12; Status DC Sodium Chloride 1,000 ml @ 1,000 mls/hr 1X ONCE IV Last administered on 11/29/19at 14:00; Start 11/29/19 at 14:00; Stop 11/29/19 at 14:59; Status DC Ringer's Solution 1,000 ml @ 175 mls/hr [id number] IV Last administered on 12/03/19at 11:35; Start 11/29/19 at 14:30; Stop 12/03/19 at 17:59; Status DC Sodium Bicarbonate (Sodium Bicarb Adult 8.4% Syr) 100 meq 1X ONCE IV Last administered on 11/29/19at 14:32; Start 11/29/19 at 14:30; Stop 11/29/19 at 14:35; Status DC Sodium Bicarbonate (Sodium Bicarb Adult 8.4% Syr) 50 meq STK-MED ONCE .ROUTE ; Start 11/29/19 at 14:30; Stop 11/29/19 at 14:30; Status DC Sodium Chloride 1,000 ml @ 1,000 mls/hr 1X ONCE IV Last administered on 11/30/19at 09:18; Start 11/30/19 at 08:45; Stop 11/30/19 at 09:44; Status DC Sodium Chloride 1,000 ml @ 1,000 mls/hr 1X ONCE IV Last administered on 11/30/19at 17:17; Start 11/30/19 at 17:15; Stop 11/30/19 at 18:14; Status DC Sodium Chloride 1,000 ml @ 1,000 mls/hr 1X ONCE IV Last administered on 12/01/19at 09:39; Start 12/01/19 at 09:45; Stop 12/01/19 at 10:44; Status DC Sodium Chloride 1,000 ml @ 1,000 mls/hr 1X ONCE IV Last administered on 12/01/19at 17:36; Start 12/01/19 at 18:00; Stop 12/01/19 at 18:59; Status DC Sodium Chloride 1,000 ml @ 1,000 mls/hr 1X ONCE IV Last administered on 12/02/19at 13:34; Start 12/02/19 at 13:00; Stop 12/02/19 at 13:59; Status DC Calcium Gluconate (Calcium Gluconate) 1,000 mg 1X ONCE IVP Last administered on 12/02/19at 15:25; Start 12/02/19 at 14:45; Stop 12/02/19 at 14:53; Status DC Potassium Chloride/Water 100 ml @ 100 mls/hr Q1H IV Last administered on 12/02/19at 17:09; Start 12/02/19 at 15:00; Stop 12/02/19 at 16:59; Status DC Magnesium Sulfate 50 ml @ 25 mls/hr 1X ONCE IV Last administered on 12/02/19at 15:24; Start 12/02/19 at 15:00; Stop 12/02/19 at 16:59; Status DC Sodium Bicarbonate 150 meq/Sterile Water 1,150 ml @ 500 mls/hr 1X ONCE IV Last administered on 12/02/19at 15:23; Start 12/02/19 at 15:00; Stop 12/02/19 at 17:17; Status DC Albumin Human 100 ml @ 100 mls/hr Q12H IV Last administered on 12/05/19at 06:05; Start 12/03/19 at 18:00; Stop 12/05/19 at 17:07; Status DC Ringer's Solution 1,000 ml @ 75 mls/hr [id number] IV Last administered on 12/05/19at 13:29; Start 12/03/19 at 23:00; Stop 12/05/19 at 17:07; Status DC Acetaminophen (Tylenol) 650 mg PRN Q6HRS PRN PEG MILD PAIN / TEMP > 100.3'F Last administered on 12/04/19at 21:02; Start 12/04/19 at 04:15 Meropenem 500 mg/ Sodium Chloride 50 ml @ 100 mls/hr Q6HRS IV Last administered on 12/05/19at 12:54; Start 12/04/19 at 16:00; Stop 12/05/19 at 17:07; Status DC Daptomycin 480 mg/ Sodium Chloride 50 ml @ 100 mls/hr Q24H IV Last a dministered on 12/04/19at 18:02; Start 12/04/19 at 16:00; Stop 12/05/19 at 17:07; Status DC Micafungin Sodium 100 mg/Dextrose 100 ml @ 100 mls/hr Q24H IV Last administered on 12/04/19at 15:29; Start 12/04/19 at 15:00; Stop 12/05/19 at 17:07; Status DC Diphenhydramine HCl (Benadryl Oral Elixir) 12.5 mg 1X PRN PRN PO PRE- TRANSFUSION; Start 12/05/19 at 01:30 Phytonadione (Vitamin K Ampule) 10 mg 1X ONCE SQ Last administered on 12/05/19at 01:44; Start 12/05/19 at 02:00; Stop 12/05/19 at 02:01; Status DC Sodium Bicarbonate 50 meq/Sodium Chloride 1,050 ml @ 75 mls/hr 1X ONCE IV Last administered on 12/05/19at 01:42; Start 12/05/19 at 02:00; Stop 12/05/19 at 17:07; Status DC Sodium Bicarbonate (Sodium Bicarb Adult 8.4% Syr) 50 meq STK-MED ONCE .ROUTE ; Start 12/05/19 at 03:55; Stop 12/05/19 at 03:56; Status DC Sodium Bicarbonate (Sodium Bicarb Ped 8.4% Syr) 50 meq 1X ONCE IV ; Start 12/05/19 at 04:15; Stop 12/05/19 at 04:16; Status UNV Sodium Bicarbonate (Sodium Bicarb Adult 8.4% Syr) 50 meq 1X ONCE IV Last administered on 12/05/19at 04:14; Start 12/05/19 at 04:15; Stop 12/05/19 at 04:16; Status DC Ceftazidime/ Avibactam 0.94 gm/ Sodium Chloride 250 ml @ 125 mls/hr Q12HR IV ; Start 12/05/19 at 13:00; Stop 12/05/19 at 17:07; Status DC Fluconazole/ Sodium Chloride 50 ml @ 100 mls/hr ONCE ONCE IV Last administered on 12/05/19at 11:08; Start 12/05/19 at 10:15; Stop 12/05/19 at 17 :07; Status DC Sodium Bicarbonate 50 meq/Sodium Chloride 1,050 ml @ 75 mls/hr Q14H IV Last administered on 12/05/19at 14:00; Start 12/05/19 at 14:00; Stop 12/05/19 at 17:07; Status DC Naloxone HCl (Narcan) 0.4 mg PRN Q2MIN PRN IV SEE INSTRUCTIONS; Start 12/05/19 at 15:15 Sodium Chloride 1,000 ml @ 25 mls/hr Q24H IV ; Start 12/05/19 at 15:06; Stop 12/05/19 at 17:07; Status DC Fentanyl Citrate 30 ml @ 0 mls/hr CONT PRN IV SEE PROTOCOL Last administered on 12/05/19at 15:19; Start 12/05/19 at 15:15; Stop 12/05/19 at 18:45; Status DC Lorazepam (Ativan Inj) 4 mg PRN Q1HR PRN IVP ANXIETY / AGITATION Last administered on 12/06/19at 01:16; Start 12/05/19 at 15:15 Fentanyl Citrate 55 ml @ 0 mls/hr CONT PRN IV SEE PROTOCOL Last administered on 12/05/19at 19:39; Start 12/05/19 at 19:00 Morphine Sulfate (Morphine Sulfate) 4 mg PRN Q1HR PRN IV PAIN Last administered on 12/06/19at 11:02; Start 12/06/19 at 10:15 Active Scripts Active Reported Bisoprolol Fumarate 5 Mg Tablet 10 Mg PO DAILY Vitals/I & O Vital Sign - Last 24 Hours 12/05/19 12/05/19 12/05/19 12/05/19 12:55 13:00 13:27 13:42 Temp 99.1 99.3 99.1 99.3 Pulse 130 131 130 Resp 32 32 34 B/P (MAP) 101/49 (66) 101/49 109/55 Pulse Ox 100 97 O2 Delivery Nasal Cannula Nasal Cannula O2 Flow Rate 2.0 2.0 12/05/19 12/05/19 12/05/19 12/05/19 14:00 14:11 14:31 15:09 Temp 99.2 99.2 99.2 99.2 Pulse 129 129 129 129 Resp 34 33 40 B/P (MAP) 111/61 (78) 111/61 105/58 100/55 (70) Pulse Ox 97 77 O2 Delivery Nasal Cannula Nasal Cannula O2 Flow Rate 2.0 2.0 12/05/19 12/05/19 12/05/19 12/06/19 18:26 19:39 20:05 00:03 Temp 98.5 98.2 98.5 98.2 Pulse 122 125 Resp 40 33 35 35 B/P (MAP) 82/46 (58) 89/49 (62) Pulse Ox 91 91 91 89 O2 Delivery Nasal Cannula Nasal Cannula Nasal Cannula Nasal Cannula O2 Flow Rate 2.0 2.0 2.0 12/06/19 12/06/19 12/06/19 12/06/19 04:07 07:23 08:00 11:02 Temp 98.4 98.4 Pulse 128 132 Resp 22 27 29 B/P (MAP) 97/43 (61) 100/43 (62) Pulse Ox 98 77 77 O2 Delivery NonRebreather Mask Nasal Cannula Nasal Cannula Nasal Cannula O2 Flow Rate 6.0 2.0 2.0 1.0 Intake and Output 12/05/19 12/05/19 12/06/19 14:59 22:59 06:59 Intake Total 1125 ml 500 ml 0 ml Output Total 75 ml 20 ml 450 ml Balance 1050 ml 480 ml -450 ml Problem List Problems Medical Problems: (1) Acute pancreatitis Status: Acute (2) Cholelithiasis Status: Acute Assessment Appears moribund. Plan of Care Note Continue comfort care. Will sign off. Justicifation of Admission Dx: Justifications for Admission: Justification of Admission Dx: Yes MARY RIVAS MD Dec 06, 2019 12:33
--- NOTE | 2019-12-06 12:41 | NUR ---
This RN called [facility] due to patient being placed on Comfort Care. Talked to Sonja to let her know about patient status changes. Without relaying patient's health information, Sonja informed this RN to call back once patient has passed,not a candidate for donation.
--- NOTE | 2019-12-06 12:42 | PDOC ---
[employer] PROGRESS NOTE Date of Service DOS: DATE: 12/06/19 TIME: 12:40 Chief Complaint Chief Complaint S/P Exp. 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 parapsilosis & PSAE 11/12 (I-merrem/ceftazidime/AZT/cefepime)) Leucocytosis Fevers, intermittent Acute gallstone pancreatitis with persistent necrosis Acute hypoxic Respiratory failure required mechanical ventilation Tracheostomy Bilateral pleural effusions/pulm edema s/p Throacentesis on 10/03/2019 HTN Intractable pain Intractable nausea Covid 19 negative Acute on chronic anemia Abd distention - U/S and CT reviewed s/p 0.4 L of opaque, debris-containing a scites was removed 08/23 Gallstone pancreatitis with necrosis. -CT A/P 09/23 showed multiple pseudocysts, slight larger on the right. s/p drains x 3, 09/24. + PSAE (MDRO-R Cefepime, Zosyn ALEXANDRA < 64) and yeast, -s/p drain 08/14. C. parapsilosis. s/p drain 08/23 + yeast & high amylase; s/p additional drain on 08/25. Drains removed. Ascites s/p paracentesis 08/02 & 08/23. C. parapsilosis JUANA. off HD. A large fluid collection in the pancreatic bed has slightly decreased in size, described below, the pancreas itself is difficult to visualize, which could be due to necrosis or obscuration of pancreatic parenchyma from the surrounding fluid collection.10/02 - 08/14 status post KAYLIN drain placement + C paropsilosis. s/p additional drains 08/25 Hypocalcemia Prediabetes s/p trach Hyperglycemia Severe protein-caloric malnutrition Extensive retroperitoneal fluid collections persist. Percutaneous drains remain within the collections in both paracolic gutters. These communicate with additional pelvic and peripancreatic collections. History of Present Illness History of Present Illness 12/06/2019 Patient seen and examined I discussed the case with her daughter her son her ex- and her mother and cousins Patient currently on comfort care and appears comfortable Has agonal respirations 12/04/2021 Patient seen and examined We now have had to transfer her back to the ICU she has decompensated again She is bleeding from 1 of her drains Her INR is above 3 (on its own) She is had a couple of rapid responses in the past 48 hours Her DPOA is present (Norma her daughter) Her mother is also present Discussed with RN Chart reviewed I had a long discussion with the family regarding possibly withdrawing care and they are considering their options 12/04/2019 Patient seen and examined, appears encephalopathic Patient is largely nonverbal Discussed with RN Chart reviewed 12/02 Patient without complaints. Per nurse reports some hypotension this am that improved spontaneously. 12/01 Will check Hb/Hct levels today in response to prbc; patient largely nonverbal but denies pain 11/30, increased IV fluid, cont current bolusing daily , LR increased cr better, Hgb worse today, will give 1 u PRBC 11/29. pain in legs, BP better, some better Urine outptu 11/28. dyspnea and mild distress worsened this AM. but was able to walk some with PT later. still HR 140 sometimes, 11/28/2019 Patient seen and examined Afebrile Resting in NAD Tachycardic and tachypneic overnight Recurring leukocytosis, 23.0 Chart reviewed Discussed with RN 11/26: Afebrile. Calcium down to 10.1. Little more tachycardic today with some more secretions. No O2 requirements. Does not wish to wear her speaking valve. Will check CXR. 11/25: Afebrile, weak, having more secretions not wearing a speaking valve today. WBC 10, Hb 8.8, NA 144, and K3.7, BUN 12, CR 0.5, calcium down to 10.3. After zoledronic acid 11/24: Had a rash after calcitonin injection. Discussed with nephrology with her calcium moving from 11.3-10.9 will give IV bisphosphonate today, zoledronic acid. 11/23: Hb stable. Afebrile. Weak. Calcium increased. Shortness of breath is improving. Plan for calcitonin today, lasix, and saline 11/22: Hemoglobin abnormally low on repeat has been stable 7.2. Calcium up to 10.9. She is able to work with PT, she is asking to eat. Social work is been having difficulties with both of her daughters completing the financial aspect of disability paperwork which is been prolonging her stay over the past 5 months. Plan to check PTH and to treat hypercalcemia with 1 L normal saline 40 mg of IV Lasix and repeat labs in a.m. 11/21: Not wishing to wear her speaking valve. J tube having some difficulties. Afebrile. Jamaal bedside to aid her. transferred from ICU today 11/20: No overnight events. Calcium 10.7 on AM labs. She is still a bit slow to to respond, but follows commands well. Does not want speaking valve with me. Pain is better controlled in her abdomen. Wound care to see today. Will check liver function and phos levels given her calcium elevation. 11/19: Patient seen and examined bedside. Positive fluid balance in the past 24 hours. Patient's chart, labs, images were reviewed and discussed with RN 11/18: No acute events overnight. Seen and examined at bedside. Patient had a fever 100.2. Negative fluid balance of 150 cc. Patient's chart, labs, images were reviewed and discussed with RN 11/17: Patient seen and examined at bedside. No acute events overnight. Positive fluid balance 633. Patient's chart, labs, images were reviewed and discussed with RN 11/16: Patient seen and examined bedside. No acute events overnight. Patient's chart, labs, images were reviewed and discussed with RN 11/14: Patient seen and examined bedside. Patient appears to be in no obvious pain. All drains have been adequately draining. Patient continues to be on TPN. Chart labs and imaging was reviewed. Negative fluid balance of 270 cc 11/13:Patient seen and examined in the ICU. Patient still requires extensive care. 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 Chart, labs, imaging was reviewed. UOP with + 500cc balance. 11/11: Patient seen in and examined in the ICU. She is still extremely critically ill. Appears weak, frail, and pale. Better color today with improved eye contact and expression. Discussed with RN. Chart reviewed 11/07: Patient seen and examined in the ICU, She is still extremely critically ill, Appears extremely weak frail and pale, Discussed with RN, Chart reviewed Vitals/I&O Vitals/I&O: Vital Signs Date Time Temp Pulse Resp B/P (MAP) Pulse Ox O2 Delivery O2 Flow Rate FiO2 12/06/19 11:02 29 77 Nasal Cannula 1.0 12/06/19 07:23 132 100/43 (62) 12/06/19 04:07 98.4 98.4 I & O 12/05/19 12/05/19 12/06/19 15:00 23:00 07:00 Intake Total 1125 ml 500 ml 0 ml Output Total 75 ml 20 ml 450 ml Balance 1050 ml 480 ml -450 ml Physical Exam Physical Exam: GENERAL: Propped up in bed, her eyes are wide open, upward gaze, unresponsive to verbal, + visual threat HEENT: Pupils equal, oral cavity dry. NECK: Tracheostomy LUNGS: Diminished aeration bases, HEART: S1, S2, ABDOMEN: Distended, bowel sounds hypoactive, soft, GJ drain present, drainage bag in place - bloody drainage, + rectal tube : Lind in place EXTREMITIES: Generalized edema, SKIN: warm touch. NEURO: - Eyes are open, unresponsive to verbal and tactile stimuli RUE PICC site without signs of complications. PIV s clean General: Other (chronic ill, opens eyes) Heart: Normal S1, Normal S2, Other Lungs: Clear Abdomen: Soft, Other (wound with clots present) Extremities: No clubbing, No cyanosis, Other (Diffuse edema) Skin: No breakdown Assessment and Plan Assessmemt and Plan Problems Medical Problems: (1) Acute pancreatitis Status: Acute (2) Cholelithiasis Status: Acute S/P Exp. 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 parapsilosis & PSAE 11/12 (I-merrem/ceftazidime/AZT/cefepime)) Leucocytosis Fevers, intermittent Acute gallstone pancreatitis with persistent necrosis Acute hypoxic Respiratory failure required mechanical ventilation Tracheostomy Bilateral pleural effusions/pulm edema s/p Throacentesis on 10/03/2019 HTN Intractable pain Intractable nausea Covid 19 negative Acute on chronic anemia Abd distention - U/S and CT reviewed s/p 0.4 L of opaque, debris-containing ascites was removed 08/23 Gallstone pancreatitis with necrosis. -CT A/P 09/23 showed multiple pseudocysts, slight larger on the right. s/p drains x 3, 09/24. + PSAE (MDRO-R Cefepime, Zosyn ALEXANDRA < 64) and yeast, -s/p drain 08/14. C. parapsilosis. s/p drain 08/23 + yeast & high amylase; s/p additional drain on 08/25. Drains removed. Ascites s/p paracentesis 08/02 & 08/23. C. parapsilosis JUANA. off HD. A large fluid collection in the pancreatic bed has slightly decreased in size, described below, the pancreas itself is difficult to visualize, which could be due to necrosis or obscuration of pancreatic parenchyma from the surrounding fluid collection.10/02 - 08/14 status post KAYLIN drain placement + C paropsilosis. s/p additional drains 08/25 Hypocalcemia Prediabetes s/p trach Hyperglycemia Severe protein-caloric malnutrition Extensive retroperitoneal fluid collections persist. Percutaneous drains remain within the collections in both paracolic gutters. These communicate with additional pelvic and peripancreatic collection PLAN Comfort care Prognosis terminal Comment Review of Relevant I have reviewed the following items kolby (where applicable) has been applied. Medications: Current Medications Medications (Trade) Dose Ordered Sig/Yvon Route PRN Reason Start Time Stop Time Status Last Admin Dose Admin Sodium Bicarbonate 50 meq/Sodium Chloride 1,050 ml @ 75 mls/hr Q14H IV 12/05/19 14:00 12/05/19 17:07 DC 12/05/19 14:00 Fentanyl Citrate 30 ml @ 0 mls/hr CONT PRN IV SEE PROTOCOL 12/05/19 15:15 12/05/19 18:45 DC 12/05/19 15:19 Lorazepam (Ativan Inj) 4 mg PRN Q1HR PRN IVP ANXIETY / AGITATION 12/05/19 15:15 12/06/19 01:16 Fentanyl Citrate 55 ml @ 0 mls/hr CONT PRN IV SEE PROTOCOL 12/05/19 19:00 12/05/19 19:39 Morphine Sulfate (Morphine Sulfate) 4 mg PRN Q1HR PRN IV PAIN 12/06/19 10:15 12/06/19 11:02 Justicifation of Admission Dx: Justifications for Admission: Justification of Admission Dx: Yes BEBO KIRBY III DO Dec 06, 2019 12:42
--- NOTE | 2019-12-06 13:19 | NUR ---
SS following up with discharge planning. SS reviewed pt chart and discussed with pt RN. Pt DNR and comfort care now. SS will continue to follow as needed.
--- NOTE | 2019-12-06 14:58 | NUR ---
Patient's TOD 1417 pronounced by Enzo Nicole RN and Juan Nolasco RN. This RN notified Dr. Dos Santos, Nursing Data Processing Systems Consultant. Family at bedside, tearful. [facility] called and patient is not a candidate. Addendum: 12/06/19 at 1602 by MARLENI NICOLE RN Patient's body taken to more. Patient's radio at nurse's station. Lane[place] notified of radio.
== END 2019-12-06 16:07 | disposition expired | DRG 3 ==
LOC: ER 02:19 → 6 SOUTH 06:43 → 1 WEST ICU 07-05 13:54 → CVICU 07-20 19:43 → PACU-ICU 07-22 17:39 → CVICU 07-28 19:11 → 1 WEST ICU 09-21 17:39 → 2 NORTH 09-22 20:00 → 1 WEST ICU 09-23 16:05 → 2 SOUTH 11-22 11:40 → 1 WEST ICU 12-05 08:00
PROVIDERS: ADMIT Internal Medicine; ATTEND Internal Medicine
PROC: 02HV33Z Insertion of Infusion Device into Superior Vena Cava, Percutaneous Approach (ICD-10-PCS; 2019-07-05)
PROC: B5181ZA Fluoroscopy of Superior Vena Cava using Low Osmolar Contrast, Guidance (ICD-10-PCS; 2019-07-05)
PROC: B548ZZA Ultrasonography of Superior Vena Cava, Guidance (ICD-10-PCS; 2019-07-05)
PROC: 02HV33Z Insertion of Infusion Device into Superior Vena Cava, Percutaneous Approach (ICD-10-PCS; 2019-07-11)
PROC: B5181ZA Fluoroscopy of Superior Vena Cava using Low Osmolar Contrast, Guidance (ICD-10-PCS; 2019-07-11)
PROC: B548ZZA Ultrasonography of Superior Vena Cava, Guidance (ICD-10-PCS; 2019-07-11)
PROC: 05PYX3Z Removal of Infusion Device from Upper Vein, External Approach (ICD-10-PCS; 2019-07-13)
PROC: 05HM03Z Insertion of Infusion Device into Right Internal Jugular Vein, Open Approach (ICD-10-PCS; 2019-07-13)
PROC: 0B110F4 Bypass Trachea to Cutaneous with Tracheostomy Device, Open Approach (ICD-10-PCS; 2019-07-25)
PROC: 0BH17EZ Insertion of Endotracheal Airway into Trachea, Via Natural or Artificial Opening (ICD-10-PCS; 2019-07-25)
PROC: 0W9G3ZZ Drainage of Peritoneal Cavity, Percutaneous Approach (ICD-10-PCS; 2019-08-03)
PROC: 5A09457 Assistance with Respiratory Ventilation, 24-96 Consecutive Hours, Continuous Positive Airway Pressure (ICD-10-PCS; 2019-08-08)
PROC: 5A1955Z Respiratory Ventilation, Greater than 96 Consecutive Hours (ICD-10-PCS; 2019-08-14)
PROC: 0D9630Z Drainage of Stomach with Drainage Device, Percutaneous Approach (ICD-10-PCS; 2019-08-15)
PROC: 0W9F30Z Drainage of Abdominal Wall with Drainage Device, Percutaneous Approach (ICD-10-PCS; 2019-08-26)
PROC: 0W9B3ZZ Drainage of Left Pleural Cavity, Percutaneous Approach (ICD-10-PCS; 2019-08-31)
PROC: 0W9B30Z Drainage of Left Pleural Cavity with Drainage Device, Percutaneous Approach (ICD-10-PCS; 2019-09-26)
PROC: 0W9B30Z Drainage of Left Pleural Cavity with Drainage Device, Percutaneous Approach (ICD-10-PCS; 2019-10-03)
PROC: BF101ZZ Fluoroscopy of Bile Ducts using Low Osmolar Contrast (ICD-10-PCS; 2019-10-18)
PROC: 0FT40ZZ Resection of Gallbladder, Open Approach (ICD-10-PCS; principal; 2019-10-18 09:30)
PROC: 0DHA0UZ Insertion of Feeding Device into Jejunum, Open Approach (ICD-10-PCS; 2019-10-18 09:30)
PROC: 02HV33Z Insertion of Infusion Device into Superior Vena Cava, Percutaneous Approach (ICD-10-PCS; 2019-11-17)
PROC: B5181ZA Fluoroscopy of Superior Vena Cava using Low Osmolar Contrast, Guidance (ICD-10-PCS; 2019-11-17)
PROC: B548ZZA Ultrasonography of Superior Vena Cava, Guidance (ICD-10-PCS; 2019-11-17)
PROC: 0D2DXUZ Change Feeding Device in Lower Intestinal Tract, External Approach (ICD-10-PCS; 2019-11-22)
PROC: 30233K1 Transfusion of Nonautologous Frozen Plasma into Peripheral Vein, Percutaneous Approach (ICD-10-PCS; 2019-12-02)
PROC: 30233N1 Transfusion of Nonautologous Red Blood Cells into Peripheral Vein, Percutaneous Approach (ICD-10-PCS; 2019-12-02)
DX: A41.9 Sepsis, unspecified organism (principal); E43 Unspecified severe protein-calorie malnutrition; G93.41 Metabolic encephalopathy; I50.31 Acute diastolic (congestive) heart failure; J96.21 Acute and chronic respiratory failure with hypoxia; K66.1 Hemoperitoneum; K85.11 Biliary acute pancreatitis with uninfected necrosis; N17.0 Acute kidney failure with tubular necrosis; N18.6 End stage renal disease; R65.21 Severe sepsis with septic shock; D62 Acute posthemorrhagic anemia; D68.9 Coagulation defect, unspecified; E87.0 Hyperosmolality and hypernatremia; G72.81 Critical illness myopathy; I13.2 Hypertensive heart and chronic kidney disease with heart failure and with stage 5 chronic kidney disease, or end stage renal disease; J98.11 Atelectasis; K31.1 Adult hypertrophic pyloric stenosis; K56.7 Ileus, unspecified; K80.00 Calculus of gallbladder with acute cholecystitis without obstruction; K92.2 Gastrointestinal hemorrhage, unspecified; N13.30 Unspecified hydronephrosis; R18.8 Other ascites; Z99.11 Dependence on respirator [ventilator] status; Z20.828 Contact with and (suspected) exposure to other viral communicable diseases; D25.9 Leiomyoma of uterus, unspecified; D72.810 Lymphocytopenia; E11.22 Type 2 diabetes mellitus with diabetic chronic kidney disease; E11.65 Type 2 diabetes mellitus with hyperglycemia; E66.9 Obesity, unspecified; E78.5 Hyperlipidemia, unspecified; E83.51 Hypocalcemia; E83.52 Hypercalcemia; E86.9 Volume depletion, unspecified; E87.5 Hyperkalemia; F32.9 Major depressive disorder, single episode, unspecified; F41.0 Panic disorder [episodic paroxysmal anxiety]; K21.9 Gastro-esophageal reflux disease without esophagitis; K44.9 Diaphragmatic hernia without obstruction or gangrene; K76.0 Fatty (change of) liver, not elsewhere classified; N70.91 Salpingitis, unspecified; R13.13 Dysphagia, pharyngeal phase; R50.82 Postprocedural fever; R56.9 Unspecified convulsions; Z45.2 Encounter for adjustment and management of vascular access device; Z74.01 Bed confinement status; Z51.5 Encounter for palliative care; Z82.49 Family history of ischemic heart disease and other diseases of the circulatory system; Z98.82 Breast implant status; Z99.2 Dependence on renal dialysis
CPT/HCPCS: 31720; 32555; 32557; 36415; 36556; 36569; 36573; 36580; 36600; 49083; 49406; 49452; 51798; 71045; 71250; 71275; 74018; 74170; 74174; 74176; 74177; 74230; 74300; 76700; 76705; 76770; 76830; 76856; 76937; 77001; 80048; 80053; 80069; 80076; 80202; 81001; 82150; 82274; 82306; 82310; 82550; 82607; 82784; 82805; 82945; 82962; 83036; 83540; 83550; 83605; 83615; 83690; 83735; 83880; 83970; 84100; 84132; 84157; 84443; 84478; 85007; 85014; 85018; 85025; 85027; 85045; 85610; 85730; 86317; 86334; 86704; 86850; 86900; 86901; 86920; 86927; 87040; 87070; 87071; 87075; 87077; 87086; 87102; 87103; 87106; 87186; 87205; 87340; 87493; 87635; 87804; 88112; 88304; 88305; 88312; 93306; 93970; 94002; 94003; 94640; 94660; 94760; 95816; 96361; 96365; 96375; 99152; 99153; 99291; A4215; C1729; C1751; C1757; C1769; C1892; C1894; C9113; J0330; J0610; J0630; J0692; J0744; J0780; J0878; J1100; J1160; J1170; J1200; J1450; J1630; J1642; J1644; J1650; J1815; J1885; J1940; J2020; J2060; J2185; J2248; J2250; J2270; J2310; J2370; J2405; J2543; J2704; J2765; J2930; J2997; J3010; J3370; J3430; J3475; J3480; J3489; J3490; J7030; J7040; J7050; J7060; J7120; P9016; P9017; P9041; P9045; P9046; Q9966; Q9967; 92526-GN; 92610-GN; 92611-GN; 97110-GO; 97110-GP; 97112-GO; 97112-GP; 97116-GP; 97530-GO; 97530-GP; 97535-GO; G0378; J7613; U0003-CS